=== PATIENT | male | born 1970 | race Caucasian/White ===

== ENCOUNTER 2023-05-21 06:55 | Outpatient (OUT) | payer MEDICARE, MEDICAID, SELFPAY ==
--- NOTE | 2023-05-21 06:59 | CT_ITS ---
[address] [address] Patient Name: GEORGE MCCARTNEY MRN: [id number] date: 1970 Sex: M Assigned Patient Location: CT Current Patient Location: CT Accession/Order Number: [id number] Exam Date: 05/21/2023 08:19 Report Date: 05/21/2023 09:09 At the request of: SHAIKH BREANNA Procedure: CT abdomen pelvis wo con EXAMINATION: CT abdomen pelvis wo con HISTORY: Incisional hernia-anterior abdmnl wall w/o obstruction K43.2 ; abdominal pain COMPARISON: CT abdomen pelvis 06/18/2022 TECHNIQUE: Axial, Coronal, and Sagittal images were obtained without and/or with IV contrast as indicated by examination type. Dose reduction techniques were achieved by using automated exposure control and/or adjustment of mA and/or kV according to patient size and/or use of iterative reconstruction technique. FINDINGS: LUNG BASES: No visible pulmonary or pleural disease. LIVER: Decreased attenuation of the liver suggestive of fatty infiltration. History of liver transplant. No enlargement, atrophy, suspicious density, or significant focal lesion. Enlarged collateral vessels within left upper quadrant posteriorly suggestive of portal hypertension; stable. BILIARY: Absent gallbladder. No abnormal duct dilation. PANCREAS: No lesion, fluid collection, or abnormal duct dilatation. SPLEEN: No enlargement or focal lesion. ADRENALS: No mass or enlargement. KIDNEYS: Marked atrophy of [place] kidneys. Right pelvis renal transplant containing a single small nonobstructing stone. BOWEL/MESENTERY: No visible mass, obstruction, or bowel wall thickening. Normal appendix. AORTA/VASCULAR: Moderate atherosclerotic disease. No aneurysm. RETROPERITONEUM: No mass or adenopathy. LYMPH NODES: No adenopathy. URINARY BLADDER: No visible focal wall thickening, lesion, or calculus. PELVIC ORGANS: No visible mass. Pelvic organs appropriate for patient age. ABDOMINAL WALL: Tiny fat filled umbilical hernia without strangulation. BONES: No bony lesion or fracture. OTHER: Negative. IMPRESSION: 1. No acute or suspicious findings to account for patient's symptoms. 2.Stable findings associated with prior liver transplant and right pelvic kidney transplant. Electronically authenticated by: MÓNICA JIMENEZ Date: 05/21/2023 09:09
== END 2023-05-21 06:56 | disposition home or self-care (01) ==
LOC: CT 06:55
PROVIDERS: PCP Nurse Practitioner; Visit Provider Internal Medicine
DX: K43.2 Incisional hernia without obstruction or gangrene (principal)
CPT/HCPCS: 74176

== ENCOUNTER 2023-07-03 06:55 | Outpatient (OUT) | payer MEDICARE, MEDICAID, SELFPAY ==
[2023-07-03 07:28] LABS: Basophils Absolute Auto 0.1 10^3/uL (0.0-0.1); Basophils Percent Auto 0.9 % (0.2-2.0); Eosinophils Absolute Auto 0.2 10^3/uL (0.0-0.7); Eosinophils Percent Auto 2.6 % (0.9-7.0); Hematocrit 49.9 % (42.0-54.0); Hemoglobin 16.4 g/dL (14.0-18.0); Immature Granulocytes Abs Auto 0.01 10^3/uL (0.00-0.03); Immature Granulocytes Pct Auto 0.2 % (0.0-0.5); Lymphocytes Absolute Auto 1.7 10^3/uL (1.2-3.8); Lymphocytes Percent Auto 28.6 % (20.5-60.0); Mean Corpuscular HGB Conc 32.9 g/dL (29.9-35.2); Mean Corpuscular Hemoglobin 28.5 pg (25.9-34.0); Mean Corpuscular Volume 86.6 fL (80.0-94.0); Mean Platelet Volume 9.4 fL (9.5-13.5); Monocytes Absolute Auto 0.6 10^3/uL (0.3-0.8); Monocytes Percent Auto 10.1 % (1.7-12.0); Neutrophils Absolute Auto 3.3 10^3/uL (1.4-6.5); Neutrophils Percent Auto 57.6 % (43.0-75.0); Platelet Count 252 10^3/uL (150-450); Red Blood Count 5.76 10^6/uL (4.70-6.10); Red Cell Distribution Width 12.7 % (11.0-15.0); White Blood Count 5.8 10^3/uL (4.0-11.0)
[2023-07-03 08:32] LABS: Protein Creatinine Ratio Urine 0.12; Total Protein Urine Random 12.4 mg/dL (<=11.9)
[2023-07-03 08:46] LABS: Alanine Aminotransferase 38 U/L (16-63); Albumin Level 4.2 g/dL (3.4-5.0); Alkaline Phosphatase 110 U/L (46-116); Anion Gap 10.8; Aspartate Amino Transferase 16 U/L (15-37); BUN Creatinine Ratio 10.6; Bilirubin Direct 0.2 mg/dL (0.0-0.2); Bilirubin Total 0.8 mg/dL (0.2-1.0); Calcium 9.3 mg/dL (8.5-10.1); Chloride 106 mmol/L (98-107); Estimated GFR (African America >60 (>=60); Estimated GFR (Non-African Ame >60 (>=60); Gamma Glutamyl Transpeptidase 26 U/L (15-85); Glucose 128 mg/dL (74-106); Magnesium 1.7 mg/dL (1.8-2.4); Phosphorus 3.1 mg/dL (2.6-4.7); Potassium 3.8 mmol/L (3.5-5.1); Sodium 138 mmol/L (136-145)
== END 2023-07-03 06:56 | disposition home or self-care (01) ==
PROVIDERS: PCP Nurse Practitioner
DX: R79.9 Abnormal finding of blood chemistry, unspecified (principal); Z94.4 Liver transplant status; D84.9 Immunodeficiency, unspecified; Z48.298 Encounter for aftercare following other organ transplant; Z94.0 Kidney transplant status
CPT/HCPCS: 36415; 80048; 80197; 82042; 82247; 82248; 82570; 82977; 83735; 84075; 84100; 84156; 84450; 84460; 85025; 87799

== ENCOUNTER 2023-07-08 11:42 | Outpatient (OUT) | payer MEDICARE, MEDICAID, SELFPAY ==
[2023-07-10 13:09] LABS: BKV DNA, Quant PCR, Plasma Negative (Negative)
== END 2023-07-08 11:43 | disposition home or self-care (01) ==
LOC: LAB 11:42
PROVIDERS: PCP Nurse Practitioner
DX: R79.9 Abnormal finding of blood chemistry, unspecified (principal); Z94.4 Liver transplant status; Z94.0 Kidney transplant status; D84.9 Immunodeficiency, unspecified; Z48.298 Encounter for aftercare following other organ transplant
CPT/HCPCS: 36415; 87799

== ENCOUNTER 2023-08-05 13:55 | Outpatient (OUT) | payer MEDICARE, MEDICAID, SELFPAY ==
--- NOTE | 2023-08-05 | XR_ITS ---
The [address] [address] Patient Name: GEORGE MCCARTNEY MRN: [id number] date: 1970 Sex: M Assigned Patient Location: LAB Current Patient Location: LAB Accession/Order Number: [id number] Exam Date: 08/05/2023 14:20 Report Date: 08/05/2023 14:42 At the request of: ZULY HERNANDEZ Procedure: XR chest 2V EXAMINATION: XR chest 2V HISTORY: Cough R05.9, Fever and chills R50.9 COMPARISON: No relevant comparison available. TECHNIQUE: PA and lateral FINDINGS: LUNGS: No significant pulmonary parenchymal abnormalities. VASCULATURE: No increased pulmonary vasculature. PLEURA: No pneumothorax, effusion, or pleural thickening. CARDIAC: Stable cardiomegaly MEDIASTINUM: No visible mass or adenopathy. BONES: No fracture or visible bone lesion. OTHER: Negative. XR/XR chest 2V IMPRESSION: Cardiomegaly Clear lungs Electronically authenticated by: GIAN RODRIGUEZ Date: 08/05/2023 14:42
[2023-08-05 14:17] LABS: Basophils Absolute Auto 0.1 10^3/uL (0.0-0.1); Basophils Percent Auto 1.1 % (0.2-2.0); Eosinophils Absolute Auto 0.1 10^3/uL (0.0-0.7); Eosinophils Percent Auto 1.7 % (0.9-7.0); Hematocrit 46.4 % (42.0-54.0); Hemoglobin 15.1 g/dL (14.0-18.0); Immature Granulocytes Abs Auto 0.02 10^3/uL (0.00-0.03); Immature Granulocytes Pct Auto 0.3 % (0.0-0.5); Lymphocytes Absolute Auto 2.2 10^3/uL (1.2-3.8); Mean Corpuscular HGB Conc 32.5 g/dL (29.9-35.2); Mean Corpuscular Hemoglobin 28.4 pg (25.9-34.0); Mean Corpuscular Volume 87.2 fL (80.0-94.0); Mean Platelet Volume 9.1 fL (9.5-13.5); Monocytes Absolute Auto 0.8 10^3/uL (0.3-0.8); Monocytes Percent Auto 11.9 % (1.7-12.0); Neutrophils Absolute Auto 3.2 10^3/uL (1.4-6.5); Platelet Count 349 10^3/uL (150-450); Red Blood Count 5.32 10^6/uL (4.70-6.10); Red Cell Distribution Width 12.7 % (11.0-15.0); White Blood Count 6.3 10^3/uL (4.0-11.0)
[2023-08-05 14:18] LABS: Bilirubin Urine NEGATIVE (NEGATIVE); Blood Urine NEGATIVE (NEGATIVE); Clarity Urine CLEAR (CLEAR); Color Urine YELLOW (YELLOW); Glucose Urine UA NEGATIVE (NEGATIVE); Ketones Urine NEGATIVE (NEGATIVE); Leukocyte Esterase Urine NEGATIVE (NEGATIVE); Nitrite Urine NEGATIVE (NEGATIVE); Protein Urine TRACE mg/dL (NEG/TRACE)
[2023-08-05 14:24] LABS: Bacteria Urine NONE SEEN #/HPF (NONE SEEN); Mucus Urine TRACE (NONE SEEN); RBC Urine NONE SEEN #/HPF (0-2); WBC Urine NONE SEEN #/HPF (NONE SEEN)
[2023-08-05 14:25] LABS: Amorphous Sediment Urine RARE; Cast Seen? NONE SEEN #/LPF (NONE SEEN); Crystals Seen? None Seen #/HPF (None Seen); Squamous Epithelial Cell Urine RARE #/LPF (NONE/RARE); Urine Culture Indicated ALREADY ORDERED
[2023-08-05 14:46] LABS: Alanine Aminotransferase 54 U/L (16-63); Albumin Globulin Ratio 0.7; Albumin Level 3.5 g/dL (3.4-5.0); Alkaline Phosphatase 129 U/L (46-116); Anion Gap 12.6; Aspartate Amino Transferase 44 U/L (15-37); BUN Creatinine Ratio 11.9; Calcium 9.5 mg/dL (8.5-10.1); Chloride 105 mmol/L (98-107); Estimated GFR (African America >60 (>=60); Estimated GFR (Non-African Ame 56 (>=60); Globulin 5.1 g/dL; Glucose 125 mg/dL (74-106); Potassium 3.6 mmol/L (3.5-5.1); Sodium 141 mmol/L (136-145); Total Protein 8.6 g/dL (6.4-8.2)
== END 2023-08-05 13:56 | disposition home or self-care (01) ==
LOC: LAB 13:57
PROVIDERS: PCP Nurse Practitioner; Visit Provider Nurse Practitioner
DX: R50.9 Fever, unspecified (principal); R05.9 Cough, unspecified
CPT/HCPCS: 36415; 71046; 80053; 81001; 85025; 87086

== ENCOUNTER 2023-08-12 12:27 | Outpatient (OUT) | payer MEDICARE, MEDICAID, SELFPAY ==
[2023-08-12 14:31] LABS: Anion Gap 15.7; BUN Creatinine Ratio 10.9; Calcium 8.8 mg/dL (8.5-10.1); Carbon Dioxide 22.1 mmol/L (21.0-32.0); Chloride 103 mmol/L (98-107); Estimated GFR (African America >60 (>=60); Estimated GFR (Non-African Ame 54 (>=60); Glucose 150 mg/dL (74-106); Potassium 3.8 mmol/L (3.5-5.1); Sodium 137 mmol/L (136-145)
== END 2023-08-12 12:28 | disposition home or self-care (01) ==
LOC: LAB 12:29
PROVIDERS: PCP Nurse Practitioner; Visit Provider Nurse Practitioner
DX: R79.89 Other specified abnormal findings of blood chemistry (principal)
CPT/HCPCS: 36415; 80048

== ENCOUNTER 2023-08-17 07:18 | Outpatient (OUT) | payer MEDICARE, MEDICAID, SELFPAY ==
[2023-08-17 08:05] LABS: Hematocrit 44.1 % (42.0-54.0); Hemoglobin 14.2 g/dL (14.0-18.0); Mean Corpuscular HGB Conc 32.2 g/dL (29.9-35.2); Mean Corpuscular Hemoglobin 28.3 pg (25.9-34.0); Mean Platelet Volume 9.9 fL (9.5-13.5); Platelet Count 201 10^3/uL (150-450); Red Blood Count 5.01 10^6/uL (4.70-6.10); Red Cell Distribution Width 12.8 % (11.0-15.0); White Blood Count 4.7 10^3/uL (4.0-11.0)
[2023-08-17 08:25] LABS: Band Neutrophils Absolute 0.1 10^3/uL (0.0-0.3); Eosinophils Absolute Manual 0.04 10^3/uL (0.00-0.70); Lymphocytes Absolute Manual 2.11 10^3/uL (1.20-3.80); Segmented Neut Absolute Manual 1.69 10^3/uL (1.4-6.5)
[2023-08-17 09:40] LABS: Protein Creatinine Ratio Urine 0.18; Total Protein Urine Random 56.4 mg/dL (<=11.9)
[2023-08-17 10:16] LABS: Alanine Aminotransferase 61 U/L (16-63); Albumin Level 3.2 g/dL (3.4-5.0); Alkaline Phosphatase 119 U/L (46-116); Aspartate Amino Transferase 44 U/L (15-37); BUN Creatinine Ratio 9.5; Bilirubin Direct 0.3 mg/dL (0.0-0.2); Bilirubin Total 1.3 mg/dL (0.2-1.0); Calcium 9.2 mg/dL (8.5-10.1); Carbon Dioxide 27.6 mmol/L (21.0-32.0); Chloride 102 mmol/L (98-107); Estimated GFR (African America >60 (>=60); Estimated GFR (Non-African Ame 50 (>=60); Gamma Glutamyl Transpeptidase 107 U/L (15-85); Glucose 137 mg/dL (74-106); Potassium 3.6 mmol/L (3.5-5.1); Sodium 139 mmol/L (136-145)
[2023-08-19 11:09] LABS: Tacrolimus (FK506), Blood 4.1 ng/mL (2.0-20.0)
[2023-08-20 15:12] LABS: CMV Quant DNA PCR (Plasma) Negative (Negative)
[2023-08-22 15:08] LABS: BKV DNA, Quant PCR, Plasma Negative (Negative)
== END 2023-08-17 07:19 | disposition home or self-care (01) ==
LOC: LAB 07:20
PROVIDERS: PCP Nurse Practitioner
DX: R73.9 Hyperglycemia, unspecified (principal); R68.83 Chills (without fever); Z12.5 Encounter for screening for malignant neoplasm of prostate; Z94.0 Kidney transplant status; Z94.4 Liver transplant status; R79.9 Abnormal finding of blood chemistry, unspecified; D84.9 Immunodeficiency, unspecified; Z48.298 Encounter for aftercare following other organ transplant
CPT/HCPCS: 36415; 80048; 80197; 82042; 82247; 82248; 82570; 82977; 83036; 84075; 84156; 84450; 84460; 85027; 85652; 86140; 87497; 87799; G0103

== ENCOUNTER 2023-08-17 07:23 | Outpatient (OUT) | payer MEDICARE, MEDICAID, SELFPAY ==
[2023-08-17 07:54] LABS: Erythrocyte Sedimentation Rate 37 mm/hr (<=20)
[2023-08-17 08:52] LABS: C Reactive Protein 4.3 mg/dL (<=1.0)
[2023-08-17 09:11] LABS: Prostate Specific Antigen Scrn 1.54 ng/mL (<=4.00)
[2023-08-17 09:23] LABS: Estimated Average Glucose 128 mg/dL; Glycohemoglobin A1C 6.1 % (4.5-6.2)
== END 2023-08-17 07:24 | disposition home or self-care (01) ==
LOC: LAB 07:25
PROVIDERS: PCP Nurse Practitioner; Visit Provider Nurse Practitioner
DX: R68.83 Chills (without fever) (principal); R73.9 Hyperglycemia, unspecified
CPT/HCPCS: 36415; 83036; 85652; 86140; G0103

== ENCOUNTER 2023-08-20 15:56 | Emergency (ER) | payer MEDICARE, MEDICAID, SELFPAY ==
[2023-08-20 16:03] VITALS: BP 105/65; PULSE 91; RESP 16; TEMP 36.9; O2SAT 95; BMI 32.9
--- NOTE | 2023-08-20 16:13 | ED.FEVER1 ---
HPI - Fever General Chief Complaint: Fever Stated Complaint: FEVER, CHILLS AND SWEATS/COUGH DR SHI SENT Time Seen by Provider: 08/20/23 15:59 Source: patient Mode of arrival: walk-in Limitations: no limitations History of Present Illness HPI Narrative: 53-year-old male presents for fever and cough. He's had this for a month. He's had testing including a chest x-ray about three weeks ago and some blood test. He is a transplant patient, liver and kidney and this was done at [facility]. He's been in communication with his transplant surgeon. No vomiting or diarrhea or dysuria. He states his temperature was 102 degrees last night. Related Data Home Medications Medication Instructions Recorded Confirmed allopurinol 100 mg tablet 200 mg PO DAILY 08/20/23 08/20/23 amlodipine 5 mg tablet 5 mg PO DAILY 08/20/23 08/20/23 atorvastatin 20 mg tablet 20 mg PO DAILY 08/20/23 08/20/23 famotidine 20 mg tablet 20 mg PO Q12H 08/20/23 08/20/23 gabapentin 400 mg capsule 400 mg PO DAILY 08/20/23 08/20/23 losartan 50 mg tablet 50 mg PO BID 08/20/23 08/20/23 mycophenolate sodium 180 mg 360 mg PO Q12H 08/20/23 08/20/23 tablet,delayed release tacrolimus 0.5 mg capsule, 0.5 mg PO Q12H 08/20/23 08/20/23 immediate-release tamsulosin 0.4 mg capsule 0.4 mg PO Q24H 08/20/23 08/20/23 triamcinolone acetonide 0.1 % 1 applic topical BID 08/20/23 08/20/23 topical cream Previous Rx's Medication Instructions Recorded benzonatate 100 mg capsule 100 mg PO TID PRN cough #20 caps 08/20/23 Allergies Allergy/AdvReac Type Severity Reaction Status Date / Time No Known Drug Allergies Allergy Verified 08/20/23 16:08 Review of Systems ROS Narrative A ten point review of systems is negative except as noted above. PFSH PFSH Social History Smoking status: Former smoker Exam Narrative Exam Narrative: Nurses note and vital signs reviewed and patient is not hypoxic. General: The patient appears well and in no apparent distress. Patient is resting comfortably on cart. Skin: Warm, dry, no pallor noted. There is no rash noted. Head: Normocephalic, atraumatic Eye: Normal conjunctiva, no drainage Ears, Nose, Mouth, and Throat: oral mucosa is moist. Nares patent. Cardiovascular: Regular Rate and Rhythm Respiratory: Patient is in no distress, no accessory muscle use, lungs are clear to auscultation, no wheezing, rales or rhonchi Back: non-tender GI: no tenderness to palpation, no masses appreciated. No rebound, guarding, or rigidity noted. Musculoskeletal: The patient has no evidence of calf tenderness, no pitting edema, symmetrical pulses noted bilaterally Neurological: A&O, normal speech Psychiatric: Cooperative Constitutional Vital Signs, click to edit/add: Last Vital Signs Temp 98.4 F 08/20/23 17:12 Pulse 91 H 08/20/23 16:03 Resp 16 08/20/23 16:03 BP 105/65 08/20/23 16:03 Pulse Ox 95 08/20/23 16:03 O2 Del Method Room Air 08/20/23 16:03 Course Vital Signs Vital signs: Vital Signs Temperature 98.5 F 08/20/23 16:03 Pulse Rate 91 H 08/20/23 16:03 Respiratory Rate 16 08/20/23 16:03 Blood Pressure 105/65 08/20/23 16:03 Pulse Oximetry 95 08/20/23 16:03 Oxygen Delivery Method Room Air 08/20/23 16:03 Temperature 98.4 F 08/20/23 17:12 Pulse Rate 91 H 08/20/23 16:03 Respiratory Rate 16 08/20/23 16:03 Blood Pressure 105/65 08/20/23 16:03 Pulse Oximetry 95 08/20/23 16:03 Oxygen Delivery Method Room Air 08/20/23 16:03 MDM - Fever MDM Narrative Medical decision making narrative: the patient's workup is nonspecific. Covid test and chest x-ray are negative. He's had a slight decrease in his hemoglobin of the past six weeks and it slight increase in his creatinine over the past six weeks as well. Findings are discussed with the transplant team at [facility] and the patient will be talking to his hospice office coordinator tomorrow for further follow-up. Tonight the transplant team does not feel that the patient needs any acute intervention but will definitely need follow-up. Treatment diagnosis and follow-up were discussed with the patient. Differential Diagnosis Differential diagnosis: Likely fever of unknown origin, community acquired pneumonia and viral infection Lab Data Attestation: I reviewed the patient's lab results. Labs: Lab Results 08/20/23 Range/Units 16:20 WBC 5.4 (4.0-11.0) 10^3/uL RBC 4.64 L (4.70-6.10) 10^6/uL Hgb 13.1 L (14.0-18.0) g/dL Hct 41.1 L (42.0-54.0) % MCV 88.6 (80.0-94.0) fL MCH 28.2 (25.9-34.0) pg MCHC 31.9 (29.9-35.2) g/dL RDW 13.2 (11.0-15.0) % Plt Count 208 (150-450) 10^3/uL MPV 9.9 (9.5-13.5) fL Neut % (Auto) 49.1 (43.0-75.0) % Lymph % (Auto) 38.4 (20.5-60.0) % [place] % (Auto) 9.2 (1.7-12.0) % Eos % (Auto) 1.3 (0.9-7.0) % Baso % (Auto) 1.1 (0.2-2.0) % Neut # (Auto) 2.7 (1.4-6.5) 10^3/uL Lymph # (Auto) 2.1 (1.2-3.8) 10^3/uL [place] # (Auto) 0.5 (0.3-0.8) 10^3/uL Eos # (Auto) 0.1 (0.0-0.7) 10^3/uL Baso # (Auto) 0.1 (0.0-0.1) 10^3/uL Abs Immat Gran (auto) 0.05 H (0.00-0.03) 10^3/uL Imm/Tot Granulo (auto) 0.9 H (0.0-0.5) % Sodium 135 L (136-145) mmol/L Potassium 3.8 (3.5-5.1) mmol/L Chloride 102 (98-107) mmol/L Carbon Dioxide 23.1 (21.0-32.0) mmol/L Anion Gap 13.7 BUN 15.0 (7.0-18.0) mg/dL Creatinine 1.51 H (0.70-1.30) mg/dL Est GFR ( Amer) 59 L (>=60) Est GFR (Non-Af Amer) 49 L (>=60) BUN/Creatinine Ratio 9.9 Glucose 125 H (74-106) mg/dL Calcium 9.4 (8.5-10.1) mg/dL Total Bilirubin 1.3 H (0.2-1.0) mg/dL Direct Bilirubin 0.4 H (0.0-0.2) mg/dL AST 56 H (15-37) U/L ALT 58 (16-63) U/L Alkaline Phosphatase 129 H (46-116) U/L Total Protein 7.4 (6.4-8.2) g/dL Albumin 3.0 L (3.4-5.0) g/dL Globulin 4.4 g/dL Albumin/Globulin Ratio 0.7 Urine Color Dk. yellow (YELLOW) Urine Clarity Clear (CLEAR) Urine pH 6.5 (5.0-9.0) Ur Specific [place] 1.020 (1.005-1.025) Urine Protein 100 A (NEG/TRACE) mg/dL Urine Glucose (UA) Negative (NEGATIVE) mg/dL Urine Ketones Trace A (NEGATIVE) mg/dL Urine Occult Blood Negative (NEGATIVE) Urine Nitrite Positive A (NEGATIVE) Urine Bilirubin Moderate A (NEGATIVE) Urine Urobilinogen 2.0 A (0.2-1.0) EU/dL Ur Leukocyte Esterase Negative (NEGATIVE) Urine RBC 0-2 (0-2) #/HPF Urine WBC 2-5 A (NONE SEEN) #/HPF Ur Squamous Epith Cells Rare (NONE/RARE) #/LPF Urine Crystals Seen A (None Seen) #/HPF Amorphous Sediment Few Urine Bacteria Trace A (NONE SEEN) #/HPF Urine Casts Seen A (NONE SEEN) #/LPF Hyaline Casts Few Urine Mucus Moderate A (NONE SEEN) SARS-CoV-2 (PCR) Negative (NEGATIVE) Imaging Data Chest x-ray: Radiologist's impression: Procedure: XR chest 1V EXAM: Chest x-ray HISTORY: . fever cough . COMPARISON: None. TECHNIQUE: Single view of the chest FINDINGS: Heart is upper limits of normal in size with left ventricular contour. Vascularity is unremarkable. Lungs are free of focal infiltrates. Grossly no bony abnormality is appreciated. IMPRESSION: 1. Borderline cardiac enlargement. 2. No infiltrates. Discharge Plan Discharge Chief Complaint: Fever Clinical Impression: Fever Patient Disposition: Home, Self-Care Time of Disposition Decision: 18:32 Condition: Good Mode of Transportation: Private Vehicle Prescriptions / Home Meds: New benzonatate 100 mg capsule 100 mg PO TID PRN (Reason: cough) Qty: 20 0RF No Action allopurinol 100 mg tablet 200 mg PO DAILY amlodipine 5 mg tablet 5 mg PO DAILY atorvastatin 20 mg tablet 20 mg PO DAILY famotidine 20 mg tablet 20 mg PO Q12H gabapentin 400 mg capsule 400 mg PO DAILY losartan 50 mg tablet 50 mg PO BID mycophenolate sodium 180 mg tablet,delayed release (DR/EC) 360 mg PO Q12H tacrolimus 0.5 mg capsule 0.5 mg PO Q12H tamsulosin 0.4 mg capsule 0.4 mg PO Q24H triamcinolone acetonide 0.1 % cream 1 applic TOPICAL BID Rx Instructions: To feet Instructions: Fever in Adults (ED) Additional Instructions: communicate with your hospice office coordinator tomorrow Stand Alone Forms: Portal Instructions Referrals: Mihaela Bruno [Primary Care Provider] - 1 week
[2023-08-20 16:44] LABS: Basophils Absolute Auto 0.1 10^3/uL (0.0-0.1); Basophils Percent Auto 1.1 % (0.2-2.0); Bilirubin Urine MODERATE (NEGATIVE); Blood Urine NEGATIVE (NEGATIVE); Clarity Urine CLEAR (CLEAR); Color Urine DK. YELLOW (YELLOW); Eosinophils Absolute Auto 0.1 10^3/uL (0.0-0.7); Eosinophils Percent Auto 1.3 % (0.9-7.0); Glucose Urine UA NEGATIVE (NEGATIVE); Hematocrit 41.1 % (42.0-54.0); Hemoglobin 13.1 g/dL (14.0-18.0); Immature Granulocytes Abs Auto 0.05 10^3/uL (0.00-0.03); Immature Granulocytes Pct Auto 0.9 % (0.0-0.5); Ketones Urine TRACE mg/dL (NEGATIVE); Leukocyte Esterase Urine NEGATIVE (NEGATIVE); Lymphocytes Absolute Auto 2.1 10^3/uL (1.2-3.8); Lymphocytes Percent Auto 38.4 % (20.5-60.0); Mean Corpuscular HGB Conc 31.9 g/dL (29.9-35.2); Mean Corpuscular Hemoglobin 28.2 pg (25.9-34.0); Mean Corpuscular Volume 88.6 fL (80.0-94.0); Mean Platelet Volume 9.9 fL (9.5-13.5); Monocytes Absolute Auto 0.5 10^3/uL (0.3-0.8); Monocytes Percent Auto 9.2 % (1.7-12.0); Neutrophils Absolute Auto 2.7 10^3/uL (1.4-6.5); Neutrophils Percent Auto 49.1 % (43.0-75.0); Nitrite Urine POSITIVE (NEGATIVE); Platelet Count 208 10^3/uL (150-450); Protein Urine 100 mg/dL (NEG/TRACE); Red Blood Count 4.64 10^6/uL (4.70-6.10); Red Cell Distribution Width 13.2 % (11.0-15.0); White Blood Count 5.4 10^3/uL (4.0-11.0); pH Urine 6.5 (5.0-9.0)
[2023-08-20 16:47] LABS: SARS-CoV-2 Ag NEGATIVE (NEGATIVE)
[2023-08-20 16:52] LABS: Anion Gap 13.7; BUN Creatinine Ratio 9.9; Calcium 9.4 mg/dL (8.5-10.1); Carbon Dioxide 23.1 mmol/L (21.0-32.0); Chloride 102 mmol/L (98-107); Estimated GFR (African America 59 (>=60); Estimated GFR (Non-African Ame 49 (>=60); Glucose 125 mg/dL (74-106); Potassium 3.8 mmol/L (3.5-5.1); Sodium 135 mmol/L (136-145)
[2023-08-20 16:58] LABS: Alanine Aminotransferase 58 U/L (16-63); Albumin Globulin Ratio 0.7; Alkaline Phosphatase 129 U/L (46-116); Aspartate Amino Transferase 56 U/L (15-37); Bilirubin Direct 0.4 mg/dL (0.0-0.2); Bilirubin Total 1.3 mg/dL (0.2-1.0); Globulin 4.4 g/dL; Total Protein 7.4 g/dL (6.4-8.2)
[2023-08-20 17:05] LABS: Amorphous Sediment Urine FEW; Bacteria Urine TRACE #/HPF (NONE SEEN); Cast Seen? SEEN #/LPF (NONE SEEN); Crystals Seen? Seen #/HPF (None Seen); Hyaline Casts Urine FEW; Mucus Urine MODERATE (NONE SEEN); RBC Urine 0-2 #/HPF (0-2); Squamous Epithelial Cell Urine RARE #/LPF (NONE/RARE)
[2023-08-20 17:12] VITALS: TEMP 36.9
--- NOTE | 2023-08-20 17:15 | XR_ITS ---
The [address] [address] Patient Name: GEORGE MCCARTNEY MRN: [id number] date: 1970 Sex: M Assigned Patient Location: ER Current Patient Location: ER Accession/Order Number: [id number] Exam Date: 08/20/2023 17:10 Report Date: 08/20/2023 17:58 At the request of: VIK JACOBS Procedure: XR chest 1V EXAM: Chest x-ray HISTORY: . fever cough . COMPARISON: None. TECHNIQUE: Single view of the chest FINDINGS: Heart is upper limits of normal in size with left ventricular contour. Vascularity is unremarkable. Lungs are free of focal infiltrates. Grossly no bony abnormality is appreciated. XR/XR chest 1V IMPRESSION: 1. Borderline cardiac enlargement. 2. No infiltrates. Electronically authenticated by: GIAN ARZATE Date: 08/20/2023 17:58
[2023-08-21 15:26] LABS: SARS-CoV-2 NAA NOT DETECTED (NOT DETECTE)
== END 2023-08-20 18:45 | disposition home or self-care (01) ==
PROVIDERS: Emergency Provider Emergency Medicine; PCP Nurse Practitioner
DX: R50.9 Fever, unspecified (principal); Z79.899 Other long term (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; Z87.891 Personal history of nicotine dependence; Z20.822 Contact with and (suspected) exposure to COVID-19
CPT/HCPCS: 36415; 71045; 80048; 80076; 81001; 85025; 87635; 87811; 99284; U0003

== ENCOUNTER 2023-09-14 07:09 | Outpatient (OUT) | payer MEDICARE, MEDICAID, SELFPAY ==
[2023-09-16 13:08] LABS: Tacrolimus (FK506), Blood 7.3 ng/mL (2.0-20.0)
== END 2023-09-14 07:10 | disposition home or self-care (01) ==
LOC: LAB 07:11
PROVIDERS: PCP Nurse Practitioner
DX: Z79.899 Other long term (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 (principal)
CPT/HCPCS: 36415; 80048; 80197

== ENCOUNTER 2023-09-14 07:25 | Outpatient (OUT) | payer MEDICARE, MEDICAID, SELFPAY ==
[2023-09-14 07:57] LABS: Basophils Absolute Auto 0.1 10^3/uL (0.0-0.1); Basophils Percent Auto 1.5 % (0.2-2.0); Eosinophils Absolute Auto 0.3 10^3/uL (0.0-0.7); Eosinophils Percent Auto 6.4 % (0.9-7.0); Hematocrit 41.6 % (42.0-54.0); Hemoglobin 13.5 g/dL (14.0-18.0); Immature Granulocytes Abs Auto 0.02 10^3/uL (0.00-0.03); Immature Granulocytes Pct Auto 0.4 % (0.0-0.5); Lymphocytes Absolute Auto 1.7 10^3/uL (1.2-3.8); Lymphocytes Percent Auto 32.2 % (20.5-60.0); Mean Corpuscular HGB Conc 32.5 g/dL (29.9-35.2); Mean Corpuscular Hemoglobin 28.4 pg (25.9-34.0); Mean Corpuscular Volume 87.4 fL (80.0-94.0); Mean Platelet Volume 9.1 fL (9.5-13.5); Monocytes Absolute Auto 0.9 10^3/uL (0.3-0.8); Monocytes Percent Auto 17.1 % (1.7-12.0); Neutrophils Absolute Auto 2.2 10^3/uL (1.4-6.5); Neutrophils Percent Auto 42.4 % (43.0-75.0); Platelet Count 273 10^3/uL (150-450); Red Blood Count 4.76 10^6/uL (4.70-6.10); Red Cell Distribution Width 14.1 % (11.0-15.0); White Blood Count 5.2 10^3/uL (4.0-11.0)
[2023-09-14 08:48] LABS: Alanine Aminotransferase 40 U/L (16-63); Albumin Level 3.5 g/dL (3.4-5.0); Alkaline Phosphatase 157 U/L (46-116); Anion Gap 13.9; Aspartate Amino Transferase 30 U/L (15-37); Bilirubin Direct 0.2 mg/dL (0.0-0.2); Bilirubin Total 1.1 mg/dL (0.2-1.0); Carbon Dioxide 24.6 mmol/L (21.0-32.0); Chloride 104 mmol/L (98-107); Estimated GFR (African America >60 (>=60); Estimated GFR (Non-African Ame 55 (>=60); Gamma Glutamyl Transpeptidase 68 U/L (15-85); Glucose 128 mg/dL (74-106); Potassium 4.5 mmol/L (3.5-5.1); Sodium 138 mmol/L (136-145)
[2023-09-14 08:51] LABS: Creatinine Urine Random 107.64 mg/dL (20.00-300.00); Protein Creatinine Ratio Urine 0.35; Total Protein Urine Random 37.4 mg/dL (<=11.9)
[2023-09-16 16:11] LABS: CMV Quant DNA PCR (Plasma) Negative (Negative)
[2023-09-18 08:12] LABS: BKV DNA, Quant PCR, Plasma Negative (Negative)
== END 2023-09-14 07:26 | disposition home or self-care (01) ==
LOC: LAB 07:26
PROVIDERS: PCP Nurse Practitioner
DX: Z94.0 Kidney transplant status (principal); Z94.4 Liver transplant status; R79.9 Abnormal finding of blood chemistry, unspecified; Z48.298 Encounter for aftercare following other organ transplant; Z79.899 Other long term (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
CPT/HCPCS: 36415; 80051; 80189; 80197; 82042; 82247; 82248; 82565; 82570; 82947; 82977; 84075; 84156; 84450; 84460; 84520; 85025; 87497; 87799

== ENCOUNTER 2023-09-17 06:50 | Outpatient (OUT) | payer MEDICARE, MEDICAID, SELFPAY ==
[2023-09-17 07:45] LABS: Basophils Absolute Auto 0.1 10^3/uL (0.0-0.1); Basophils Percent Auto 2.1 % (0.2-2.0); Eosinophils Absolute Auto 0.3 10^3/uL (0.0-0.7); Eosinophils Percent Auto 5.3 % (0.9-7.0); Hematocrit 41.5 % (42.0-54.0); Hemoglobin 13.2 g/dL (14.0-18.0); Immature Granulocytes Abs Auto 0.01 10^3/uL (0.00-0.03); Immature Granulocytes Pct Auto 0.2 % (0.0-0.5); Lymphocytes Absolute Auto 1.9 10^3/uL (1.2-3.8); Lymphocytes Percent Auto 39.5 % (20.5-60.0); Mean Corpuscular HGB Conc 31.8 g/dL (29.9-35.2); Mean Corpuscular Hemoglobin 27.7 pg (25.9-34.0); Mean Platelet Volume 9.3 fL (9.5-13.5); Monocytes Absolute Auto 0.9 10^3/uL (0.3-0.8); Neutrophils Absolute Auto 1.7 10^3/uL (1.4-6.5); Neutrophils Percent Auto 34.9 % (43.0-75.0); Platelet Count 248 10^3/uL (150-450); Red Blood Count 4.77 10^6/uL (4.70-6.10); Red Cell Distribution Width 13.8 % (11.0-15.0); White Blood Count 4.7 10^3/uL (4.0-11.0)
[2023-09-17 08:01] LABS: Creatinine Urine Random 90.75 mg/dL (20.00-300.00); Protein Creatinine Ratio Urine 0.17; Total Protein Urine Random 15.2 mg/dL (<=11.9)
[2023-09-17 08:44] LABS: Alanine Aminotransferase 36 U/L (16-63); Albumin Level 3.6 g/dL (3.4-5.0); Alkaline Phosphatase 137 U/L (46-116); Anion Gap 12.7; Aspartate Amino Transferase 30 U/L (15-37); BUN Creatinine Ratio 15.3; Bilirubin Direct 0.2 mg/dL (0.0-0.2); Bilirubin Total 1.1 mg/dL (0.2-1.0); Calcium 9.3 mg/dL (8.5-10.1); Carbon Dioxide 24.8 mmol/L (21.0-32.0); Chloride 104 mmol/L (98-107); Estimated GFR (African America >60 (>=60); Estimated GFR (Non-African Ame 52 (>=60); Gamma Glutamyl Transpeptidase 57 U/L (15-85); Glucose 118 mg/dL (74-106); Magnesium 1.8 mg/dL (1.8-2.4); Phosphorus 3.5 mg/dL (2.6-4.7); Potassium 4.5 mmol/L (3.5-5.1); Sodium 137 mmol/L (136-145)
[2023-09-19 15:07] LABS: BKV DNA, Quant PCR, Plasma Negative (Negative)
[2023-09-21 14:08] LABS: Tacrolimus (FK506), Blood 6.2 ng/mL (2.0-20.0)
== END 2023-09-17 06:51 | disposition home or self-care (01) ==
PROVIDERS: PCP Nurse Practitioner
DX: R79.9 Abnormal finding of blood chemistry, unspecified (principal); Z94.4 Liver transplant status; Z94.0 Kidney transplant status; D84.9 Immunodeficiency, unspecified; Z48.298 Encounter for aftercare following other organ transplant
CPT/HCPCS: 36415; 80048; 80189; 80197; 82042; 82247; 82248; 82570; 82977; 83735; 84075; 84100; 84156; 84450; 84460; 85025; 87799

== ENCOUNTER 2023-09-17 06:55 | Outpatient (OUT) | payer MEDICARE, MEDICAID, SELFPAY | END 2023-09-17 06:56 | disposition home or self-care (01) | LOC: LAB 06:56 | PROVIDERS: PCP Nurse Practitioner | DX: Z94.0 Kidney transplant status (principal); Z94.4 Liver transplant status; R79.9 Abnormal finding of blood chemistry, unspecified; D84.9 Immunodeficiency, unspecified; Z48.298 Encounter for aftercare following other organ transplant | CPT/HCPCS: 36415; 80189 ==

== ENCOUNTER 2023-09-21 06:47 | Outpatient (OUT) | payer MEDICARE, MEDICAID, SELFPAY ==
[2023-09-21 07:51] LABS: Anion Gap 11.5; Carbon Dioxide 25.9 mmol/L (21.0-32.0); Chloride 107 mmol/L (98-107); Estimated GFR (African America >60 (>=60); Estimated GFR (Non-African Ame 57 (>=60); Potassium 4.4 mmol/L (3.5-5.1); Sodium 140 mmol/L (136-145)
[2023-09-24 06:08] LABS: Tacrolimus (FK506), Blood 6.1 ng/mL (2.0-20.0)
== END 2023-09-21 06:48 | disposition home or self-care (01) ==
LOC: LAB 06:48
PROVIDERS: PCP Nurse Practitioner
DX: Z94.0 Kidney transplant status (principal); Z94.4 Liver transplant status; R79.9 Abnormal finding of blood chemistry, unspecified; Z48.298 Encounter for aftercare following other organ transplant; D84.9 Immunodeficiency, unspecified
CPT/HCPCS: 36415; 80051; 80189; 80197; 82565; 84520

== ENCOUNTER 2023-09-24 06:35 | Outpatient (OUT) | payer MEDICARE, MEDICAID, SELFPAY ==
[2023-09-27 14:07] LABS: Tacrolimus (FK506), Blood 4.9 ng/mL (2.0-20.0)
== END 2023-09-24 06:36 | disposition home or self-care (01) ==
LOC: LAB 06:36
PROVIDERS: PCP Nurse Practitioner
DX: Z79.899 Other long term (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 (principal)
CPT/HCPCS: 36415; 80051; 80197; 82565; 84520

== ENCOUNTER 2023-10-01 07:09 | Outpatient (OUT) | payer MEDICARE, MEDICAID, SELFPAY ==
[2023-10-01 08:08] LABS: Anion Gap 11.7; Carbon Dioxide 24.4 mmol/L (21.0-32.0); Chloride 107 mmol/L (98-107); Estimated GFR (African America >60 (>=60); Estimated GFR (Non-African Ame 50 (>=60); Potassium 4.1 mmol/L (3.5-5.1); Sodium 139 mmol/L (136-145)
[2023-10-04 04:06] LABS: Tacrolimus (FK506), Blood 6.1 ng/mL (2.0-20.0)
== END 2023-10-01 07:10 | disposition home or self-care (01) ==
LOC: LAB 07:11
PROVIDERS: PCP Nurse Practitioner
DX: Z79.899 Other long term (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 (principal)
CPT/HCPCS: 36415; 80051; 80197; 82565; 84520

== ENCOUNTER 2023-10-08 06:41 | Outpatient (OUT) | payer MEDICARE, MEDICAID, SELFPAY ==
[2023-10-08 09:11] LABS: Anion Gap 9.6; Carbon Dioxide 24.6 mmol/L (21.0-32.0); Chloride 106 mmol/L (98-107); Estimated GFR (African America >60 (>=60); Estimated GFR (Non-African Ame 58 (>=60); Potassium 4.2 mmol/L (3.5-5.1); Sodium 136 mmol/L (136-145)
[2023-10-12 14:08] LABS: Tacrolimus (FK506), Blood 5.8 ng/mL (2.0-20.0)
== END 2023-10-08 06:42 | disposition home or self-care (01) ==
LOC: LAB 06:43
PROVIDERS: PCP Nurse Practitioner
DX: R79.9 Abnormal finding of blood chemistry, unspecified (principal); Z94.4 Liver transplant status; Z94.0 Kidney transplant status; D84.9 Immunodeficiency, unspecified
CPT/HCPCS: 36415; 80051; 80197; 82565; 84520

== ENCOUNTER 2023-10-15 06:35 | Outpatient (OUT) | payer MEDICARE, MEDICAID, SELFPAY ==
[2023-10-15 07:31] LABS: Carbon Dioxide 26.1 mmol/L (21.0-32.0); Chloride 106 mmol/L (98-107); Estimated GFR (African America >60 (>=60); Estimated GFR (Non-African Ame >60 (>=60); Potassium 4.1 mmol/L (3.5-5.1); Sodium 142 mmol/L (136-145)
== END 2023-10-15 06:36 | disposition home or self-care (01) ==
LOC: LAB 06:37
PROVIDERS: PCP Nurse Practitioner
DX: R79.9 Abnormal finding of blood chemistry, unspecified (principal); Z94.4 Liver transplant status; Z94.0 Kidney transplant status; D84.9 Immunodeficiency, unspecified
CPT/HCPCS: 36415; 80051; 82565; 84520

== ENCOUNTER 2023-10-19 20:54 | Outpatient (OUT) | payer MEDICARE, MEDICAID, SELFPAY | END 2023-10-19 20:55 | disposition home or self-care (01) | LOC: SLEEP 20:54 | PROVIDERS: PCP Nurse Practitioner; Visit Provider Nurse Practitioner | DX: G47.33 Obstructive sleep apnea (adult) (pediatric) (principal) | CPT/HCPCS: 95810 ==

== ENCOUNTER 2023-10-23 06:46 | Outpatient (OUT) | payer MEDICARE, MEDICAID, SELFPAY ==
[2023-10-23 07:07] LABS: Anion Gap 14.8; Carbon Dioxide 26.4 mmol/L (21.0-32.0); Chloride 107 mmol/L (98-107); Estimated GFR (African America >60 (>=60); Estimated GFR (Non-African Ame >60 (>=60); Potassium 4.2 mmol/L (3.5-5.1); Sodium 144 mmol/L (136-145)
[2023-10-25 21:08] LABS: Tacrolimus (FK506), Blood 7.4 ng/mL (2.0-20.0)
== END 2023-10-23 06:47 | disposition home or self-care (01) ==
LOC: LAB 06:46
PROVIDERS: PCP Nurse Practitioner
DX: R79.9 Abnormal finding of blood chemistry, unspecified (principal); Z94.0 Kidney transplant status; Z94.4 Liver transplant status; D84.9 Immunodeficiency, unspecified; Z48.298 Encounter for aftercare following other organ transplant
CPT/HCPCS: 36415; 80051; 80197; 82565; 84520

== ENCOUNTER 2023-10-30 07:01 | Outpatient (OUT) | payer MEDICARE, MEDICAID, SELFPAY ==
[2023-10-30 07:58] LABS: Anion Gap 12.4; Carbon Dioxide 24.9 mmol/L (21.0-32.0); Chloride 104 mmol/L (98-107); Estimated GFR (African America >60 (>=60); Estimated GFR (Non-African Ame 60 (>=60); Potassium 4.3 mmol/L (3.5-5.1); Sodium 137 mmol/L (136-145)
== END 2023-10-30 07:02 | disposition home or self-care (01) ==
LOC: LAB 07:03
PROVIDERS: PCP Nurse Practitioner
DX: Z79.899 Other long term (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 (principal)
CPT/HCPCS: 36415; 80051; 82565; 84520

== ENCOUNTER 2023-10-30 07:07 | Outpatient (OUT) | payer MEDICARE, MEDICAID, SELFPAY | END 2023-10-30 07:08 | disposition home or self-care (01) | LOC: LAB 07:09 | PROVIDERS: PCP Nurse Practitioner | DX: Z79.899 Other long term (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 (principal); Z94.0 Kidney transplant status; R79.9 Abnormal finding of blood chemistry, unspecified; Z48.298 Encounter for aftercare following other organ transplant; D84.9 Immunodeficiency, unspecified | CPT/HCPCS: 36415; 80051; 82565; 84520; 87799 ==

== ENCOUNTER 2023-11-06 06:39 | Outpatient (OUT) | payer MEDICARE, MEDICAID, SELFPAY ==
[2023-11-06 08:02] LABS: Anion Gap 15.6; Carbon Dioxide 24.5 mmol/L (21.0-32.0); Chloride 106 mmol/L (98-107); Estimated GFR (African America >60 (>=60); Estimated GFR (Non-African Ame >60 (>=60); Potassium 4.1 mmol/L (3.5-5.1); Sodium 142 mmol/L (136-145)
[2023-11-09 11:12] LABS: Tacrolimus (FK506), Blood 7.6 ng/mL (2.0-20.0)
== END 2023-11-06 06:40 | disposition home or self-care (01) ==
LOC: LAB 06:40
PROVIDERS: PCP Nurse Practitioner
DX: R79.9 Abnormal finding of blood chemistry, unspecified (principal); Z94.0 Kidney transplant status; Z48.298 Encounter for aftercare following other organ transplant; D84.9 Immunodeficiency, unspecified
CPT/HCPCS: 36415; 80051; 80197; 82565; 84520

== ENCOUNTER 2023-11-10 12:33 | Outpatient (OUT) | payer MEDICARE, MEDICAID, SELFPAY ==
--- NOTE | 2023-11-10 | MR_ITS ---
The [address] [address] Patient Name: GEORGE MCCARTNEY MRN: [id number] date: 1970 Sex: M Assigned Patient Location: MRI Current Patient Location: MRI Accession/Order Number: [id number] Exam Date: 11/10/2023 13:00 Report Date: 11/10/2023 14:58 At the request of: CAESAR TEIXEIRA Procedure: MR head/brain wo con EXAM: MR head/brain wo con HISTORY: Tremor COMPARISON: MRI brain 08/23/2018 TECHNIQUE: MRI of the brain was performed without contrast. FINDINGS: There is no restricted diffusion to suggest acute infarct. There is no midline shift, mass effect, or abnormal extraaxial fluid collections. Mild enlarged cortical sulci, consistent with age appropriate cerebral atrophy. There are nonspecific scattered foci of T2/FLAIR signal abnormality in the subcortical and periventricular white matter, which appear stable since 2018. Statistically, these are most likely based on chronic microvascular ischemia for this age. The major intracranial flow voids are visualized. The cerebellar tonsils are normal in position. The orbits are unremarkable. The calvarium and extracranial soft tissues are unremarkable. The paranasal sinuses and mastoid air cells are clear. MR/MR head/brain wo con IMPRESSION: No acute intracranial abnormality. Mild chronic microvascular ischemia and involutional changes. Electronically authenticated by: ORESTES GARIBAY Date: 11/10/2023 14:58
== END 2023-11-10 12:34 | disposition home or self-care (01) ==
LOC: MRI 12:34
PROVIDERS: PCP Nurse Practitioner; Visit Provider Psychiatry & Neurology Neurology
DX: R25.1 Tremor, unspecified (principal)
CPT/HCPCS: 70551

== ENCOUNTER 2023-11-13 06:35 | Outpatient (OUT) | payer MEDICARE, MEDICAID, SELFPAY ==
[2023-11-13 07:23] LABS: Anion Gap 12.2; Carbon Dioxide 27.2 mmol/L (21.0-32.0); Chloride 108 mmol/L (98-107); Estimated GFR (African America >60 (>=60); Estimated GFR (Non-African Ame >60 (>=60); Potassium 4.4 mmol/L (3.5-5.1); Sodium 143 mmol/L (136-145)
[2023-11-16 18:07] LABS: Tacrolimus (FK506), Blood 8.1 ng/mL (2.0-20.0)
== END 2023-11-13 06:36 | disposition home or self-care (01) ==
LOC: LAB 06:37
PROVIDERS: PCP Nurse Practitioner
DX: R79.9 Abnormal finding of blood chemistry, unspecified (principal); Z94.0 Kidney transplant status; Z48.298 Encounter for aftercare following other organ transplant; D84.9 Immunodeficiency, unspecified
CPT/HCPCS: 36415; 80051; 80197; 82565; 84520

== ENCOUNTER 2023-11-17 19:54 | Outpatient (OUT) | payer MEDICARE, MEDICAID, SELFPAY | END 2023-11-17 19:55 | disposition home or self-care (01) | LOC: SLEEP 19:54 | PROVIDERS: PCP Nurse Practitioner; Visit Provider Nurse Practitioner | DX: G47.33 Obstructive sleep apnea (adult) (pediatric) (principal) | CPT/HCPCS: 95811 ==

== ENCOUNTER 2023-11-20 06:39 | Outpatient (OUT) | payer MEDICARE, MEDICAID, SELFPAY ==
--- OUTSIDE RECORDS SUMMARY | 2023-11-20 06:45 | XMS_ITS | CCD ---
Author Name Unknown Address [address] [place] [address] Organization [facility] Care Team Providers Care Trainer Name Role Phone Kiana Zuly Unavailable Unavailable Primary Care Provider Unavailabl e CAREY ROB Referring Unavailable KASMANI, ROB Referring Unavailable KASMANI, ROB Referring Unavailable RIST, RENA Referring Unavailable JOHARTANA Referring Unavailable RIST, RENA Referring Unavailable RIST, RENA Referring Unavailable RIST, RENA Referring Unavailable RIST, RENA Referring Unavailable PEPE CASE Attending Unavailable PEPE CASE Admitting Unavailable AICHHOLZ, ZULY Referring Unavailable AICHHOLZ, ZULY Primary Care Unavailable Aichholz [facility], Zuly Primary Care Provider Miguel HComfort Unavailable Shirin RPh,PharmD, Angel Unavailable Unavailab makayla Leigh RP,PharmD, Te Unavailable Unavamatthew lable Aicholz [facility] Primary Care Provider MIGUEL CARDONA Attending Unavailable MISC, DR BURCH Admitting Unavailable MISC, DR BURCH Consulting Unavailable AICHHOLZ, [facility] ZULY Primary Care Unavailable MISC, DR BURCH Attending Unavailable MISC, DR BURCH Admitting Unavailable MISC, DR BURCH Consulting Unavailable AICHHOLZ, LIFE INSURANCE SPECIALIST ZULY Primary Care Unavailable MISC, DR BURCH Attending Unavailable ARCELIA PIZARRO Consulting Unavailable KE BURNHAM Attending Unavailable KE BURNHAM Admitting Unavailable DR MÓNICA JIMENEZ Consulting Unavailable AICHHOLZ, LIFE INSURANCE SPECIALIST ZULY Primary Care Unavailable KE BURNHAM Consulting Unavailable MISC, DR DOCTOR Consulting Unavailable MISC, DR DOCTOR Attending Unavailable AICHHOL, [facility] ZULY Primary Care Unavailable MISC, DR DOCTOR Admitting Unavailable MISC, DR DOCTOR Consulting Unavailable MISC, DR DOCTOR Attending Unavailable AICHHOL, [facility] ZULY Primary Care Unavailable MISC, DOCTOR Admitting Unavailable MISC, DR DOCTOR Consulting Unavailable AICHHOL, [facility] ZULY Primary Care Unavailable MISC, DOCTOR Admitting Unavailable MISC, DR DOCTOR Attending Unavailable MELINDA, DR GEORGE Munoz Consulting Unavailable MELINDA, DR GEORGE Munoz Attending Unavailable AICHHOLZ, [facility] ZULY Primary Care Unavailable MELINDA, DR GEORGE Munoz Admitting Unavailable NAUN ., KE Consulting Unavailable MIRANDA, LYNDSAY Consulting Unavailable MELINDA, DR GEORGE Munoz Consulting Unavailable NAUN ., KE Attending Unavailable NAUN ., KE Admitting Unavailable AICHHOLZ, [facility] ZULY Primary Care Unavailable NAUN ., KE Consulting Unavailable GIAN HERRING Consulting Unavailable AICHOL, LIFE INSURANCE SPECIALIST ZULY Consulting Unavailable AICHOL, LIFE INSURANCE SPECIALIST ZULY Attending Unavailable AICHOL, LIFE INSURANCE SPECIALIST ZULY Admitting Unavailable AICHHOL, [facility] ZULY Primary Care Unavailable MISC, DR Consulting Unavailable MISC, DR BURCH Admitting Unavailable MISC, DR DOCTOR Attending Unavailable AICHHOLZ, [facility] ZULY Primary Care Unavailable MISC, DR Consulting Unavailable MISC, DR DOCTOR Attending Unavailable MISC, DOCTOR Admitting Unavailable AICHHOLZ, [facility] ZULY Primary Care Unavailable MISC, DR BURCH Admitting Unavailable MISC, DR Consulting Unavailable MISC, DR DOCTOR Attending Unavailable AICHHOL, [facility] ZULY Primary Care Unavailable MISC, DR DOCTOR Admitting Unavailable MISC, DR DOCTOR Consulting Unavailable AICHOL, [facility] ZULY Primary Care Unavailable MISC, DR DOCTOR Attending Unavailable MISC, DOCTOR Admitting Unavailable MISC, DR DOCTOR Consulting Unavailable AICHHOL, [facility] ZULY Primary Care Unavailable MISC, DR DOCTOR Attending Unavailable AICHOL, [facility] INSURANCE SPECIALIST ZULY Consulting [facility]available [facility], [facility] ZULY Attending [facility] Admitting Unavailable [facility] Primary Care Unavailable DR MÓNICA JIMENEZ Consulting Unavailable [facility] Primary Care Provider Cindy WHIPPLETranjuan j Feliz Unavailable [phone] [facility] Primary Care Provider [phone] Evan White DO Unavailable AICHHOLZ, ZULY Primary Care Unavailable AICHHOLZ, ZULY Primary Care Unavailable AICHHOLZ, ZULY Primary Care Unavailable STEVE LATHAM Attending Unavailable AICHHOLZ, ZULY Primary Care Unavailable STEVE LATHAM Referring Unavailable AICHHOLZ, ZULY Primary Care Unavailable EVAN WHITE Referring Unavailyoko e HAKEEM ALAMO Attending Unavailable AICHHOLZ, ZULY Primary Care Unavailable DAISHA MAX Referring Unavailable DAISHA MAX Attending Unavailable REBECA OLSEN Attending Unavailable SELF, SELF Referring Unavailable AICHHOLZ, ZULY Primary Care Unavailable AICHHOLZ, ZULY Primary Care Unavailable STEVE LATHAM Admitting Unavailable CONSULT, INFECTIOUS DISEASE Consulting Unav ailable AICHHOLZ, ZULY Primary Care Unavailable KEVIN SAGE Attending Unavailable STEVE LATHAM Referring Unavailable AICHHOLZ, ZULY Attending Unavailable Allergies Allergy Classification Reported Allergen(s) Allergy Type Date of Onset Reaction(s) Facility (1 source) Shellfish; 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: [SHELLFISH DERIVED] Propensity to adverse reactions (disorder) 8 [facility] (20 sources) Shellfish-Derive d Products Propensity to adverse reactions to drug 9 [facility] (1 source) Shellfish Drug allergy (disorder) [facility] Rep[facility] Medications Current Medications Medication Drug Class(es) Dates Sig (Normalized) Sig (Original) ascorbic acid 100 mg / biotin 0.15 mg / calcium pantothenate 5 mg / folic acid 1 mg / niacin 20 mg / pyridoxine 10 mg / riboflavin 1.7 mg / thiamine mononitrate 1.5 mg / vitamin b 12 0.006 mg oral capsule (6 sources) Nicotinic Acid, Vitamin B12, Vitamin C take 1 capsule by mouth once daily b ngbuztl-B-mcanz acid (NEPHROCAPS) 1 MG capsule Take 1 capsule by mouth daily 0 Active cholecalciferol 1000 unt oral tablet (1 source) Vitamin D take 1 tablet by mouth once daily vitamin D (CHOLECALCIFEROL) 1000 UNIT TABS tablet Take 1,000 Units by mouth daily 0 Active ciprofloxacin 500 mg oral tablet (1 source) Quinolone Antimicrobial Start: 06-12-2022 End: 06-26-2022 take 1 tablet by mouth twice daily ciprofloxacin (Cipro) 500 MG tablet Indications: Kidney replaced by transplant , Liver replaced by transplant , Abnormal blood chemistry Take 1 tablet by mouth 2 times daily for 14 days. 28 tablet 0 06/12/2022 06/26/2022 Active CUSTOM MEDICATION (1 source) Start: 09-10-2023 CUSTOM MEDICATION Labs to be obtained: 1- Tacrolimus level, trough - collect twice weekly until 09/24/23, then weekly until 10/08/23, them once every two weeks there after. 2- Itraconazole level - obtain once between 09/14-09/18. 3- Chem 6 - Obtain weekly while on itraconazole Fax results to: Dr. White - [phone] Transplant Neph - [phone] 99 Each 0 09/10/2023 Active Drug or medicament (substance) (1 source) Start: 09-10-2023 folic acid 1 mg oral tablet (6 sources) take 1 tablet by mouth once daily folic acid (FOLVITE) 1 MG tablet Take 1 mg by mouth daily 0 Active gabapentin 400 mg oral capsule (20 sources) Anti-epileptic Agent Start: 06-07-2023 End: 09-11-2023 take 1 capsule by mouth at bedtime Gabapentin 400 MG capsule Take 1 capsule by mouth at bedtime. 0 06/07/2023 Active Start: 05-15-2022 End: 05-20-2022 take 400 mg by mouth once daily at bedtime 400 mg, Oral, DAILY AT BEDTIME, First dose on Marta 05/15/22 at 2215, Until Discontinued Start: 06-12-2020 End: 06-12-2023 take 4 capsules by mouth once daily at bedtime for pain gabapentin 100 MG capsule Take 4 capsules by mouth at bedtime. Take daily at bedtime for foot and ankle pain. 0 06/12/2020 06/12/2023 Discontinued lactulose [id number] mg powder for oral solution (19 sources) Osmotic Laxative take 20 g by mouth three times daily lactulose (CEPHULAC) 20 g packet Take 20 g by mouth 3 times daily 0 Active magnesium oxide 400 mg oral tablet (20 sources) Start: 09-30-2023 take 2 tablets by mouth once daily magnesium oxide 400 (240 Mg) MG Take 2 tablets by mouth daily. 180 tablet 3 09/30/2023 Active Start: 09-08-2023 End: 09-11-2023 Start: 09-05-2023 End: 09-07-2023 take 400 mg by mouth once daily 400 mg, Oral, DAILY, F irst dose on 09/05/23 at 0900, Until Discontinued Start: 09-04-2023 End: 09-04-2023 take 1 dose by mouth once 800 mg, Oral, ONCE, 1 dose, On 09/04/23 at 0800 Start: 05-20-2022 End: 01-16-2023 take 2 tablets by mouth once daily Magnesium Oxide 500 MG tablet Take 2 tablets by mouth daily. 20 tablet 0 05/20/2022 01/16/2023 Discontinued take 1 tablet by magy th once daily magnesium oxide (MAG-OX) 400 MG tablet Take 400 mg by mouth daily 0 Active midodrine hydrochloride 10 mg oral tablet (20 sources) alpha-Adrenergic Agonist Start: 06-09-2018 Midod rine HCl 10 MG Tab tablet Take 1 tablet by mouth as needed. 0 06/09/2018 Active take 2 tablets by mo uth three times daily as needed midodrine (PROAMATINE) 5 MG tablet Take 10 mg by mouth 3 times daily Prn with dialysis 0 Active take 2 tablets by mo uth once daily as needed midodrine 5 MG Tab tablet Take 10 mg by mouth daily as needed. Iv durning Dialysis Active Multiple Vitamins-Minerals (THERAPEUTIC MULTIVITAMIN-MINERALS) tablet (6 sources) take 1 tablet by mouth once daily Multiple Vitamins-Minerals (THERAPEUTIC MULTIVITAMIN-MINERALS) tablet Take 1 tablet by mouth daily 0 Active mycophenolic acid 360 mg delayed release oral tablet (20 sources) Antimetabolite Immunosuppressant Star t: 11-0 05-19 take 1 tablet by mouth every twelve hours Mycophenolate sodium (MYFORTIC) [address] tablet DR Take 1 tablet by mouth every 12 hours. 60 tablet 5 10/05/2023 Active Start: 09-03-2023 End: 09-11-2023 take 360 mg by mouth every twelve hours Start: 03-10-2023 End: 09-01-2023 Start: 05-15-2022 End: 05-20-2022 take 1 tablet by mouth every twelve hours 360 mg, Oral, EVERY 12 HOURS NON-STANDARD, First dose on [facility] 05/15/22 at 2245, Until Discontinued Give on an empty stomach. Swallow tablet whole; do not split, crush, or chew. Start: 03-15-2021 End: 09-10-2023 take 2 tablets by mouth every twelve hours Mycophenolate sodium (MYFORTIC) [address] Indications: S/P liver transplant , -donor kidney transplant recipient Take 2 tablets by mouth every 12 hours. 360 tablet 1 09/12/2022 Active rifAXIMin 550 mg oral tablet (12 sources) Rifamycin Antibacterial take 1 tablet by mouth twice daily rifaximin (XIFAXAN) 550 MG tablet Take 550 mg by mouth 2 times daily 0 Active RifAXIMin (XIFAX AN PO) Take by mouth. Active sertraline 25 mg oral tablet (1 source) Serotonin Reuptake Inhibitor take 1 tablet by mouth once daily sertraline 25 MG tablet Take 25 mg by mouth daily. 0 Active sevelamer carbonate 800 mg oral tablet (19 sources) Phosphate Binder Start: 07-17-2018 take 1 tablet by mouth three times daily at mealtime sevelamer 800 MG Tab tablet Take 800 mg by mouth 3 times daily with meals. 0 07/17/2018 Active take 2 tablets by mo ut three times daily at mealtime sevelamer (RENVELA) 800 MG tablet Take 2 tablets by mouth 3 times daily (with meals) 0 Active sulfamethoxazole 800 mg / trimethoprim 160 mg oral tablet (7 sources) Dihydrofolate Reductase Inhibitor Antibacterial, Sulfonamide Antimicrobial Start: 09-23-2023 End: 09-22-2024 take 1 tablet by mouth three times weekly Sulfamethoxazole-trimethoprim 800-160 MG per tablet Indications: Need for prophylactic measure Take 1 tablet by mouth three times a week. 12 tablet 11 09/23/2023 09/22/2024 Active Start: 09-04-2023 End: 09-11-2023 take 1 tablet by mouth three times weekly, then take 1 tablet by mouth once daily 1 tablet, Oral, THREE TIMES WEEKLY (Once per day on Thu), First dose (after last modification) on Thu09/04/23 at 0900, Until Discontinued Start: 08-26-2023 End: 09-01-2030 Start: 08-26-2023 take 1 tablet by magy twice daily Sulfamethoxazole-trimethoprim 800-160 MG per tablet Take 1 tablet by mouth 2 times daily. 0 08/26/2023 Suspended Start: 07-07-2022 End: 07-07-2022 sulfamethoxazole-trimethopri m (BACTRIM DS) 800-160 MG per tablet 1 tablet tacrolimus 0.2 mg granules for oral suspension (20 sources) Calcineurin Inhibitor Immunosuppressant Start: 09-10-2023 End: 01-09-2024 Tacrolimus 0.2 MG Pack mix contents of 1 packet with 15-30ml of room temperature water and drink every other day as directed. first dose to be 09/12. 30 Each 1 09/10/2023 01/09/2024 Active Start: 09-04-2023 End: 09-08-2023 take 0.5 mg by mouth once daily 0.5 mg, Oral, DAILY, F irst dose (after last modification) on Thu09/04/23 at 0900, Until Discontinued Do not split, break, crush, or open doses of this medication. Contact pharmacy if altered dose or route needed. Start: 03-10-2023 End: 09-10-2023 take 0.5 mg by mouth every twelve hours 0.5 mg, Oral, EVERY 12 HOURS, First dose on Thu08/28/23 at 2100, Until Discontinued Do not split, break, crush, or open doses of this medication. Contact pharmacy if altered dose or route needed. Start: 08-20-2022 take 1 capsule by [facility] every twelve hours Tacrolimus (PROGRAF) 0.5 MG capsule Indications: -donor kidney transplant recipient , Liver transplant recipient Take 1 capsule by mouth every 12 hours. 180 capsule 1 08/20/2022 Active Start: 05-15-2022 End: 05-20-2022 take 1 mg by mouth every twelve hours 1 mg, Oral, EVERY 12 HOURS, First dose on Thu05/15/22 at 2215, Until Discontinued Do not split, break, crush, or open doses of this medication. Contact pharmacy if altered dose or route needed. Do not split, break, crush, or open doses of this medication. Contact pharmacy if altered dose or route needed. Start: 03-14-2022 take 1 capsule by [facility] every twelve hours tacrolimus (PROGRAF) 0.5 MG capsule Indications: -donor kidney transplant recipient , Liver transplant recipient Take 2 capsules by mouth every 12 hours. 360 capsule 1 03/14/2022 Active Start: 01-11-2021 take 1 capsule by mo ut twice daily tacrolimus (generic) 0.5 MG capsule Indications: Liver transplant recipient , -donor kidney transplant recipient Take 3 capsules by mouth 2 times daily. 180 capsule 5 01/11/2021 Active tamsulosin hydrochloride 0.4 mg oral capsule (20 sources) alpha-Adrenergic Ibrahima Start: 06-16-2023 End: 09-11-2023 take 1 capsule by mouth once daily Tamsulosin HCl 0.4 MG capsule take 1 capsule by mouth once daily 90 capsule 3 06/16/2023 Active Start: 06-08-2023 take 1 capsule by mo ut once daily Tamsulosin HCl 0.4 MG capsule take 1 capsule by mouth once daily 30 capsule 11 06/08/2023 Active Start: 06-19-2022 take 1 capsule by mo ut once daily Tamsulosin HCl 0.4 MG capsule Take 1 capsule by mouth daily. 30 capsule 11 06/19/2022 Active Start: 05-23-2022 take 1 capsule by mo [facility] once daily Tamsulosin HCl 0.4 MG capsule Take 1 capsule by mouth daily. 30 capsule 0 05/23/2022 Active Start: 05-16-2022 End: 05-20-2022 take 0.4 mg by mouth once daily 0.4 mg, Oral, DAILY, F irst dose on Thu05/16/22 at 0900, Until Discontinued Slow release product. Do not chew or crush vitamin d 1000 unt oral tablet (5 sources) take 1 tablet by magy th once daily vitamin D (CHOLECALCIFEROL) 1000 UNIT TABS tablet Take 1,000 Units by mouth daily 0 Active Completed/Discontinued Medications Medication Drug Class(es) Dates Sig (Normalized) Sig (Original) acetaminophen 325 mg oral tablet (6 sources) Start: 09-04-2023 End: 09-11-2023 take 650 mg by mouth every six hours as needed 650 mg, Oral, EVERY 6 HOURS NEEDED, Starting on Thu09/04/23 at 0925, Until Thu09/11/23 at 1645, Moderate Pain, Mild Pain, Oral temp > 100.4 F Maximum dose of acetaminophen is 2000 mg from all sources in 24 hours. Start: 09-03-2023 End: 09-11-2023 take 325 mg by mouth every twenty-four hours 325 mg, Oral, EVERY 24 HOURS, First dose on Marta 09/03/23 at 1600, Until Discontinued Give just prior to each amphotericin b dose Start: 08-31-2023 End: 09-04-2023 take 325 mg by mouth every six hours as needed 325 mg, Oral, EVERY 6 HOURS NEEDED, Starting on Thu09/04/23 at 0405, Until Thu09/04/23 at 0926, Moderate Pain, Mild Pain, Oral temp > 100.4 F Maximum dose of acetaminophen is 2000 mg from all sources in 24 hours. Start: 08-29-2023 End: 08-31-2023 take 650 mg by mouth every four hours as needed 650 mg, Oral, EVERY 4 HOURS NEEDED, Starting on 08/29/23 at 2325, Until 08/31/23 at 0732, Oral temp > 100.4 F, Mild Pain Maximum dose of acetaminophen is 4000 mg from all sources in 24 hours. Start: 05-15-2022 End: 05-20-2022 take 1 tablet by mouth every six hours as needed acetaminophen (TYLENOL) tablet 650 mg allopurinol 100 mg oral tablet (20 sources) Xanthine Oxidase Inhibitor Start: 08-29-2023 End: 09-11-2023 take 200 mg by mouth once daily 200 mg, Oral, DAILY, First dose on 08/29/23 at 0900, Until Discontinued Start: 01-15-2023 take 2 tablets by [facility] once daily Allopurinol 100 MG tablet Indications: Abnormal blood chemistry Take 2 tablets by mouth daily. 180 tablet 3 01/15/2023 Active Start: 05-17-2022 End: 05-20-2022 allopurinol (ZYLOPRIM) table t 100 mg Start: 05-16-2022 End: 05-16-2022 take 200 mg by mouth once daily 200 mg, Oral, DAILY, F irst dose on Thu05/16/22 at 0900, Until Discontinued Start: 12-30-2021 take 2 tablets by [facility] once daily allopurinol 100 MG tablet Indications: Abnormal blood chemistry take 2 tablets by mouth once daily 180 tablet 3 12/30/2021 Active Start: 01-28-2021 take 2 tablets by [facility] once daily allopurinol 100 MG tablet Indications: Abnormal blood chemistry Take 2 tablets by mouth daily. 180 tablet 3 01/28/2021 Active amLODIPine 5 mg oral tablet (20 sources) Dihydropyridine Calcium Channel Ibrahima Start: 09-01-2023 End: 09-11-2023 take 5 mg by mouth every twenty-four hours 5 mg, Oral, EVERY 24 HOURS, First dose on Thu09/03/23 at 2100, Until Discontinued Start: 08-29-2023 End: 09-02-2023 take 5 mg by mouth once daily 5 mg, Oral, DAILY, First dose on Thu08/29/23 at 0900, Until Discontinued Start: 05-16-2022 End: 05-20-2022 take 5 mg by mouth once daily 5 mg, Oral, DAILY, First dose on Thu05/16/22 at 0900, Until Discontinued aspirin 81 mg chewable tablet (20 sources) Platelet Aggregation Inhibitor, Nonsteroidal Anti-inflammatory Drug Start: 10-08-2020 End: 09-11-2023 take 81 mg by mouth once daily 81 mg, Oral, DAILY, First dose on Thu08/29/23 at 0900, Until Discontinued take 1 tablet by mouth once radha y aspirin 81 MG chewable tablet Take 81 mg by mouth daily 0 Active atorvastatin 20 mg oral tablet (20 sources) HMG-CoA Reductase Inhibitor Start: 05-15-2022 End: 05-20-2022 take 20 mg by mouth once daily at bedtime 20 mg, Oral, DAILY AT BEDTIME, First dose on Thu05/15/22 at 2215, Until Discontinued Start: 09-06-2020 End: 09-11-2023 take 20 mg by mouth once daily at bedtime 20 mg, Oral, DAILY AT BEDTIME, First dose on Thu08/28/23 at 2100, Until Discontinued benzocaine 140 mg/ml / butamben 20 mg/ml / tetracaine 20 mg/ml mucosal spray (1 source) Elizabeth Local Anesthetic, Standardized Chemical Allergen Start: 09-02-2023 End: 09-02-2023 Topical, NEEDED, Starting on Thu09/02/23 at 0807, Until Discontinued, Intra-op/Intra-Proc benzocaine 15 mg / menthol 3.6 mg oral lozenge (1 source) Standardized Chemical Allergen Start: 05-15-2022 End: 05-20-2022 benzocaine-menthol (CEPACOL) 15-3.6 MG per lozenge 1 lozenge benzonatate 100 mg oral capsule (2 sources) Non-narcotic Antitussive Start: 08-20-2023 End: 09-10-2023 calcium chloride 0.0014 meq/ml / potassium chloride 0.004 meq/ml / sodium chloride 0.103 meq/ml / sodium lactate 0.028 meq/ml injectable solution (4 sources) Start: 09-05-2023 End: 09-05-2023 500 mL, Intravenous, ONCE, 1 dose, On 09/05/23 at 0800 Fluid Bolus Start: 05-18-2022 End: 05-18-2022 lactated ringers IV solution Start: 05-15-2022 End: 05-17-2022 lactated ringers IV solution camphor 5 mg/ml / menthol 5 mg/ml topical lotion (19 sources) Start: 06-06-2020 End: 06-12-2023 camphor-menthol 0.5-0.5 % Lotion Apply 1 Application topically as needed. 222 mL 0 06/06/2020 06/12/2023 Discontinued cefTRIAXone 2000 mg injection (2 sources) Cephalosporin Antibacterial Start: 05-15-2022 End: 05-20-2022 take 2 g intravenously every twenty-four hours cefTRIAXone (ROCEPHIN) 2 g in dextrose 50mL premix IVPB Diatrizoate (1 source) Start: 05-20-2022 End: 05-20-2022 diatrizoate Meglumine (Cystografin) 30 % UR solution 80 mL diphenhydrAMINE hydrochloride 25 mg oral tablet (1 source) Histamine-1 Receptor Antagonist Start: 09-03-2023 End: 09-11-2023 take 25 mg by mouth every twenty-four hours 25 mg, Oral, EVERY 24 HOURS, First dose on Marta 09/03/23 at 1600, Until Discontinued Give 30 minutes prior to each amphotericin b dose docusate sodium 100 mg oral capsule (4 sources) Start: 05-15-2022 End: 05-16-2022 take 200 mg by mouth every twelve hours 200 mg, Oral, EVERY 12 HOURS, First dose on Marta 05/15/22 at 2215, Until Discontinued Start: 05-23-2020 End: 05-20-2022 take 2 capsules by mouth every twelve hours docusate 100 MG capsule Take 2 capsules by mouth every 12 hours. 120 capsule 0 05/23/2020 05/20/2022 Discontinued (Stop Taking at Discharge) famotidine 20 mg oral tablet (20 sources) Histamine-2 Receptor Antagonist Start: 08-28-2023 End: 09-09-2023 take 20 mg by mouth twice daily 20 mg, Oral, 2 TIMES DAILY, First dose on Thu08/28/23 at 1800, Until Discontinued Start: 05-16-2022 End: 05-20-2022 take 20 mg by mouth once daily 20 mg, Oral, DAILY, Fir st dose on Thu05/16/22 at 0900, Until Discontinued 2 ml fentaNYL 0.05 mg/ml injection (1 source) Opioid Agonist Start: 09-02-2023 End: 09-02-2023 Intravenous, Administer over 2 Minutes, NEEDED, Starting on Thu09/02/23 at 0818, Until Discontinued, Intra-op/Intra-Proc FLUoxetine 40 mg oral capsule (2 sources) Serotonin Reuptake Inhibitor End: 05-20-2022 take 1 capsule by mouth once daily FLUoxetine 40 MG capsule Take 40 mg by mouth daily. 0 05/20/2022 Discontinued (Stop Taking at Discharge) 250 ml glucose 50 mg/ml injection (1 source) Start: 09-03-2023 End: 09-09-2023 50 mL, Intravenous, NEEDED, Starting on Thu09/03/23 at 1519, Until Thu09/09/23 at 1457, See admin instructions Use sufficient volume to flush entire line BEFORE and AFTER amphotericin B liposomal administration. guaiFENesin 20 mg/ml oral solution (2 sources) Start: 08-29-2023 End: 09-11-2023 take 200 mg by mouth every four hours as needed 200 mg, Oral, EVERY 4 HOURS NEEDED, Starting on Thu08/29/23 at 0803, Until Thu09/11/23 at 1645, Cough Start: 05-15-2022 End: 05-20-2022 take 400 mg by mouth every six hours as needed guaiFENesin (ROBITUSSIN) oral solution 400 mg 1 ml heparin sodium, porcine 5000 unt/ml prefilled syringe (3 sources) Unfractionated Heparin, Anti-coagulant Start: 08-28-2023 End: 09-11-2023 inject 5000 [IU] by subcutaneous injection every eight hours 5,000 Units, Subcutaneous, EVERY 8 HOURS (0800/1600/2200), First dose on Thu08/28/23 at 1745, Until Discontinued Start: 05-15-2022 End: 05-20-2022 heparin injection 5,000 Unit s iodixanol (VISIPAQUE) injection 320 mg/mL for [facility] (1 source) Start: 05-17-2022 End: 05-20-2022 iodixanol (VISIPAQUE) injection 320 mg/mL for [facility] itraconazole 10 mg/ml oral solution (4 sources) Azole Antifungal Start: 09-10-2023 End: 10-08-2023 take 200 mg by mouth every twelve hours Itraconazole 10 MG/ML Solution Take 20 mL by mouth every 12 hours. 1200 mL 0 09/10/2023 10/08/2023 Discontinued (Reorder) Start: 09-06-2023 End: 09-11-2023 take 200 mg by mouth every twelve hours Start: 09-03-2023 End: 09-06-2023 200 mg, Oral, EVERY 8 HOURS, 9 doses, First dose on Thu09/03/23 at 1700, Last dose on Thu09/06/23 at 0600 Administer on an empty stomach. Hold tube feeds for 1 hour before and 2 hours after administration. 10 ml lidocaine hydrochloride 10 mg/ml injection (2 sources) Antiarrhythmic, Amide Local Anesthetic Start: 09-02-2023 End: 09-02-2023 Infiltration, NEEDED, Starting on Thu09/02/23 at 0831, Until Discontinued, Intra-op/Intra-Proc Start: 09-02-2023 End: 09-02-2023 Topical, NEEDED, Starting on Thu09/02/23 at 0828, Until Discontinued, Intra-op/Intra-Proc losartan potassium 50 mg ora l tablet (20 sources) Angiotensin 2 Receptor Ibrahima Start: 02-05-2023 End: 09-10-2023 Start: 01-05-2023 take 1 tablet by magy th twice daily Losartan 50 MG tablet take 1 tablet by mouth twice a day 60 tablet 01/05/2023 Active Start: 01-06-2022 End: 05-20-2022 take 1 tablet by mouth twice daily losartan 50 MG tablet take 1 tablet by mouth twice a day 60 tablet 01/06/2022 Active Start: 12-24-2020 End: 12-19-2021 take 1 tablet by mouth twice daily losartan 50 MG tablet Take 1 tablet by mouth 2 times daily. 60 tablet 12/24/2020 12/19/2021 Active 50 ml magnesium sulfate 80 mg/ml injection (6 sources) Start: 09-09-2023 End: 09-09-2023 4 g, Intravenous, Administer over 4 Hours, ONCE, 1 dose, On Thu09/09/23 at 0800 Start: 09-07-2023 End: 09-07-2023 4 g, Intravenous, Administer over 4 Hours, ONCE, 1 dose, On 09/07/23 at 1145 Start: 09-05-2023 End: 09-05-2023 4 g, Intravenous, Administer over 4 Hours, ONCE, 1 dose, On 09/05/23 at 0800 Start: 05-18-2022 End: 05-20-2022 Magnesium Sulfate 4 g in jorge rile water 50 ml premix IVPB melatonin 3 mg oral tablet (20 sources) Start: 08-28-2023 End: 09-11-2023 take 6 mg by mouth once daily at bedtime as needed 6 mg, Oral, DAILY AT BEDTIME NEEDED, Starting on Thu08/28/23 at 1738, Until Thu09/11/23 at 1645, Insomnia Start: 05-15-2022 End: 05-20-2022 melatonin tablet 3 mg 2 ml midazolam 1 mg/ml injection (2 sources) Benzodiazepine Start: 09-02-2023 End: 09-03-2023 Intravenous, NEEDED, Starting on Thu09/02/23 at 0818, Until Discontinued, Intra-op/Intra-Proc mineral oil 0.15 mg/mg / petrolatum 0.83 mg/mg ophthalmic ointment (1 source) Start: 09-04-2023 End: 09-11-2023 1 Application, Both Eyes, NEEDED, Starting on Thu09/04/23 at 2006, Until Thu09/11/23 at 1645, Dry Eyes Apply thin ribbon inside lower eyelid Patient may self-administer. 1 ml morphine sulfate 4 mg/ml cartridge (2 sources) Opioid Agonist Start: 05-15-2022 End: 05-15-2022 Morphine Sulfate (PF) injection 4 mg multivitamin w/ minerals tablet (3 sources) Start: 09-06-2020 End: 05-20-2022 take 1 tablet by mouth once daily multivitamin w/ minerals tablet Take 1 tablet by mouth daily. Further refills to be provided by PCP's office. 30 tablet 3 09/06/2020 05/20/2022 Discontinued (Stop Taking at Discharge) Start: 09-06-2020 take 1 tablet by magy th once daily multivitamin w/ minerals tablet Take 1 tablet by mouth daily. Further refills to be provided by PCP's office. 30 tablet 3 09/06/2020 Active MYCOPHENOLATE (1 source) Start: 08-28-2023 End: 09-03-2023 take 1 tablet by mouth every twelve hours 540 mg, Oral, EVERY 12 HOURS NON-STANDARD, First dose on Thu08/28/23 at 2100, Until Discontinued Give on an empty stomach. Swallow tablet whole; do not crush, split or chew. Contact pharmacy if alternate route or dose is needed. ondansetron 4 mg disintegrating oral tablet (20 sources) Serotonin-3 Receptor Antagonist Start: 06-14-2020 End: 06-12-2023 ondansetron (Zofran ODT) 4 M G Tab Dispersible tablet Dissolve 1 tablet on tongue every 6 hours as needed for nausea or vomiting. 20 tablet 0 06/14/2020 06/12/2023 Discontinued take 1 tablet by magy th every eight hours as needed ondansetron 4 MG tablet Take 1 tablet by mouth every 8 hours as needed for Nausea / Vomiting. 0 Active ondansetron 4mg/2ml (ZOFRAN) injection 4 mg (1 source) Start: 05-15-2022 End: 05-20-2022 take 4 mg intravenously every six hours as needed ondansetron 4mg/2ml (ZOFRAN) injection 4 mg oxyCODONE hydrochloride 5 mg oral tablet (17 sources) Opioid Agonist Start: 05-20-2022 End: 06-12-2023 oxyCODONE 5 MG tablet Indications: Hydronephrosis due to obstruction of ureteral orifice Take 1 tablet by mouth every 4 hours as needed for Severe Pain or Moderate Pain for up to 5 doses. 5 tablet 0 05/20/2022 06/12/2023 Discontinued Start: 05-16-2022 End: 05-20-2022 take 1 tablet by mouth every four hours as needed oxyCODONE HCl (ROXICODONE) tablet 10 mg polyethylene glycol [id number] mg powder for oral solution (20 sources) Osmotic Laxative Start: 08-28-2023 End: 09-11-2023 17 g, Oral, DAILY NEEDED, Starting on Thu08/28/23 at 1738, Until Thu09/11/23 at 1645, Constipation 1st Line Start: 05-16-2022 End: 05-20-2022 polyethylene glycol (MIRALAX ) packet 17 g potassium bicarbonate 20 meq effervescent oral tablet (1 source) Start: 09-07-2023 End: 09-07-2023 40 mEq, Per NG tube, ONCE, 1 dose, On 09/07/23 at 1145 Do not swallow whole. Dissolve completely in 3-4 ounces of water or cold juice before drinking. If administering via J tube, dilute in sterile water, wait for tablet to stop fizzing, swirl the solution and draw into a syringe suitable for attaching to the tube. After administration, flush tube with 15-30 ml water. microencapsulated potassium chloride 20 meq extended release oral tablet (15 sources) Start: 09-10-2023 End: 09-10-2023 Start: 09-09-2023 End: 09-11-2023 40 mEq, Oral, DAILY, First d ose (after last modification) on Marta 09/10/23 at 0900, Until Discontinued Swallow tablets whole; do not crush, chew, or suck on tablet. Tablet may also be broken in half and each half swallowed separately. Start: 09-08-2023 End: 09-09-2023 20 mEq, Oral, ONCE, 1 dose, On 09/09/23 at 1115 Swallow tablets whole; do not crush, chew, or suck on tablet. Tablet may also be broken in half and each half swallowed separately. Start: 09-04-2023 End: 09-04-2023 20 mEq, Oral, ONCE, 1 dose, On Thu09/04/23 at 1245 Swallow tablets whole; do not crush, chew, or suck on tablet. Tablet may also be broken in half and each half swallowed separately. Start: 05-19-2022 End: 05-19-2022 potassium chloride (K-DUR) t ablet ER 40 mEq Start: 05-18-2022 End: 05-18-2022 potassium chloride (K-DUR) t ablet ER 20 mEq take 40 mEq by mouth once daily POTASSIUM CHLORIDE PO Take 40 mEq by mouth daily 0 Active potassium phosphate 155 mg / sodium phosphate, dibasic 852 mg / sodium phosphate, monobasic 130 mg oral tablet (2 sources) Start: 05-19-2022 End: 05-19-2022 sodium-potassium phosphate ( K-PHOS NEUTRAL) tablet 1,000 mg Start: 05-18-2022 End: 05-18-2022 sodium-potassium phosphate ( K-PHOS NEUTRAL) tablet 1,000 mg sennosides, retirement 8.6 mg oral tablet (1 source) Start: 05-16-2022 End: 05-20-2022 senna (SENOKOT) tablet 8.6 m g sodium chloride 30 mg/ml inhalation solution (6 sources) Start: 09-04-2023 End: 09-11-2023 4 mL, Nebulization, NEEDE D, Starting on Thu09/04/23 at 0926, Until Thu09/11/23 at 1645, Other, c/f mucus plugging Start: 09-03-2023 End: 09-09-2023 take 500 mL intravenously every twenty-four hours 500 mL, Intravenous, EVERY 24 HOURS, First dose on Thu09/03/23 at 1930, Until Discontinued Give 500 mL bolus after amphotericin B dose. Amphotericin B is incompatible with NS; use PRN D5W order for flushing line immediately following drug administration but prior to NS bolus. Start: 08-31-2023 End: 09-11-2023 2 spray, Right Nostril, N EEDED, Starting on 08/31/23 at 2142, Until Thu09/11/23 at 1645, Congestion Start: 08-28-2023 End: 09-11-2023 Intravenous, at 20 mL/hr, NEEDED, Starting on Thu08/28/23 at 1734, Until Thu09/11/23 at 1645, Carrier Fluid - See Admin. Inst 250mL 0.9NS to be used as carrier fluid for intermittent small volume or piggyback medication administration as needed. Infusion rate of the carrier fluid should be set at 20 mL/hr unless the rate as the intermittent medication is less than 20 mL/hr. For intermittent medications with a rate less than 20 mL/hr set the carrier fluid at that rate of the intermittent or piggy back medication. Start: 05-15-2022 End: 05-20-2022 sodium chloride 0.9% IV solu tion 250 mL (2 sources) Start: 09-12-2023 End: 09-11-2023 0.25 mg, Oral, EVERY 48 HOUR S, First dose (after last modification) on Thu09/12/23 at 0900, Until Discontinued Caution check route of administration. For sublingual administration, place liquid under tongue and allow absorption. Start: 09-09-2023 End: 09-11-2023 take 0.25 mg by mouth once daily 0.25 mg, Oral, DAILY, First dose on Thu09/09/23 at 0900, Until Discontinued Caution check route of administration. For sublingual administration, place liquid under tongue and allow absorption. (3 sources) Start: 09-04-2023 End: 09-09-2023 250 mg (rounded from 229.2 m g = 3 mg/kg 76.4 kg Adjusted weight), Intravenous, Administer over 2 Hours, EVERY 24 HOURS, First dose on Thu09/04/23 at 2000, Until Discontinued Amphotericin B liposomal is NOT compatible with normal saline. Flush line with D5W before and after administration. Start: 09-03-2023 End: 09-03-2023 250 mg (rounded from 229.2 m g = 3 mg/kg 76.4 kg Adjusted weight), Intravenous, Administer over 2 Hours, ONCE, 1 dose, On Thu09/03/23 at 1630 Amphotericin B liposomal is NOT compatible with normal saline. Flush line with D5W before and after administration. Start: 08-28-2023 End: 09-11-2023 take 4 mg intravenously every six hours as needed [Order 1 Start] Name: Ondansetron 4mg/2ml (ZOFRAN) injection 4 mg Signed Summary: 4 mg, Intravenous, EVERY 6 HOURS NEEDED, Starting on Thu08/28/23 at 1738, Until Thu09/11/23 at 1645, Nausea / Vomiting, 1st line for Nausea/Vomiting [Order 1 End] [Order 2 Start] Name: Ondansetron (ZOFRAN) tablet 4 mg Signed Summary: 4 mg, Oral, EVERY 6 HOURS NEEDED, Starting on Thu08/28/23 at 1738, Until Thu09/11/23 at 1645, Nausea / Vomiting, 1st line for Nausea/Vomiting [Order 2 End] Problems Active Problems Problem Classification Problem Date Documented Date Episodic/Chronic Alcohol-related disorders (20 sources) Alcoholic cirrhosis; 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: [Alcoholic cirrhosis of liver without ascites] Onset: 10-05-2018 10-05-2018 Chronic Chronic kidney disease (20 sources) End stage renal failure on dialysis; 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: [End-stage renal disease] Onset: 06-01-2018 06-22-2018 Chronic Coronary atherosclerosis and other heart disease (20 sources) Coronary arteriosclerosis; 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: [Atherosclerotic heart disease of [place] coronary artery without angina pectoris] Onset: 04-13-2023 04-22-2020 Chronic Disorders of lipid metabolism (6 sources) Mixed hyperlipidemia; 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: [Hyperlipidemia, unspecified] Onset: 12-29-2022 Chronic Essential hypertension (20 sources) Benign essential hypertension; 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: [Essential (primary) hypertension] Onset: 08-30-2022 04-22-2020 Chronic Genitourinary symptoms and ill-defined conditions (1 source) Finding of urological device; 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: [Encounter for attention to other artificial openings of urinary tract] Chronic Headache; including migraine (1 source) Headache; including migraine; 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: [HEADACHE UNSPECIFIED] Onset: 08-30-2022 Hyperplasia of prostate (5 sources) Benign prostatic hypertrophy with outflow obstruction; 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: [Benign prostatic hyperplasia with lower urinary tract symptoms] Onset: 09-15-2022 Chronic Hypertension with complications and secondary hypertension (3 sources) Renal hypertension; 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: [Hypertension secondary to other renal disorders] Onset: 08-28-2023 08-28-2023 Chronic Immunity disorders (11 sources) Immunosuppression; 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: [Immunodeficiency, unspecified] Onset: 06-06-2022 Chronic Mycoses (7 sources) Histoplasmosis; 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: [Histoplasmosis, unspecified] Onset: 08-28-2023 09-10-2023 Episodic Other aftercare (3 sources) Transplant follow-up; 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: [Encounter for aftercare following other organ transplant] Chronic Other aftercare (3 sources) Encounter for aftercare following other organ transplant; 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: [ENC AFTERCARE FLW OTH ORGN TRANSPL] Onset: 04-29-2023 Chronic Other aftercare (1 source) Follow-up status; 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: [Encounter for follow-up examination after completed treatment for conditions other than malignant neoplasm] Episodic Other aftercare (2 sources) Taking high risk medication; 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: [Other correction (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] Episodic Other aftercare (3 sources) Other correction (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; 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: [OTH PROJECT LEADER 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 THERAPY] Onset: 07-06-2022 Episodic Other diseases of kidney and ureters (2 sources) Other specified disorders of kidney and ureter; 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: [Other specified disorders of kidney and ureter] Onset: 08-28-2023 Chronic Other diseases of kidney and ureters (4 sources) Hydronephrosis; 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: [Hydronephrosis with ureteral stricture, not elsewhere classified] Episodic Other liver diseases (2 sources) Cirrhosis of liver Chronic Other liver diseases (1 source) Cirrhosis and chronic liver disease; 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: [Unspecified cirrhosis of liver] Onset: 04-12-2020 04-12-2020 Chronic Other liver diseases (20 sources) Chronic liver disease; 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: [Unspecified cirrhosis of liver] Onset: 04-12-2020 04-12-2020 Chronic Other liver diseases (5 sources) Liver transplant status; 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: [Liver transplant status] Onset: 04-22-2020 Chronic Other lower respiratory disease (1 source) Hypoxia; 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: [Hypoxemia] 09-10-2023 Episodic Other lower respiratory disease (2 sources) Hypoxemia; 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: [Hypoxemia] Onset: 08-28-2023 Episodic Other nutritional; endocrine; and metabolic disorders (20 sources) Obese class I; 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: [Obesity, unspecified] Onset: 04-09-2020 04-09-2020 Chronic Other screening for suspected conditions (not mental disorders or infectious disease) (3 sources) CT of chest abnormal; 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: [Abnormal findings on diagnostic imaging of other specified body structures] Onset: 08-28-2023 09-02-2023 Chronic Other screening for suspected conditions (not mental disorders or infectious disease) (18 sources) Abnormal quantity of physiologic substance; 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: [Blood chemistry abnormal] Onset: 06-22-2018 06-22-2018 Episodic Residual codes; unclassified (20 sources) Awaiting transplantation of liver; 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: [Awaiting organ transplant status] Onset: 07-24-2019 04-12-2020 Chronic Residual codes; unclassified (3 sources) Other general symptoms and signs; 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: [Other general symptoms] Onset: 08-28-2023 08-25-2023 Episodic Respiratory failure; insufficiency; arrest (adult) (3 sources) Acute respiratory failure; 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: [Acute respiratory failure with hypoxia] Onset: 08-28-2023 09-02-2023 Episodic Unclassified (17 sources) Awaiting transplantation of liver; 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: [Pre-transplant evaluation for liver transplant] Onset: 10-05-2018 10-05-2018 Unclassified (1 source) CONTACT W/AND (SUSP) EXPOS COVID-19; 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: [CONTACT W/AND (SUSP) EXPOS COVID-19] Onset: 06-20-2022 Unclassified (7 sources) New Patient Onset: 03-26-2023 03-26-2023 Unclassified (7 sources) Access to Medication(s) Onset: 03-26-2023 03-26-2023 Unclassified (7 sources) Safety: Avoid toxicity that would cause discontinuation Onset: 03-26-2023 03-26-2023 Unclassified (7 sources) Identify and eliminate barriers to patient adherence Onset: 03-26-2023 03-26-2023 Unclassified (7 sources) Ensure that patient is receiving therapeutic benefit Onset: 03-26-2023 03-26-2023 Past or Other Problems Problem Classification Problem Date Documented Date Episodic/Chronic Acute and unspecified renal failure (20 sources) Acute injury of kidney; 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: [Acute kidney failure, unspecified] Onset: 05-15-2022 Episodic Calculus of urinary tract (1 source) Calculus of ureter; 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: [CALCULUS OF URETER] Onset: 05-13-2022 Episodic Complications of surgical procedures or medical care (4 sources) Malfunction of incontinent external stoma of urinary tract; 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: [MALFUNC INCONT EXT STOMA URIN TRACT] Onset: 06-18-2022 Episodic Deficiency and other anemia (1 source) Anemia, unspecified; 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: [ANEMIA UNSPECIFIED] Onset: 11-08-2022 Episodic Fever of unknown origin (5 sources) Fever; 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: [Fever, unspecified] Onset: 08-28-2023 Resolved: 09-10-2023 08-28-2023 Episodic Genitourinary symptoms and ill-defined conditions (7 sources) Retention of urine, unspecified; 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: [Hematuria, unspecified] Onset: 05-11-2022 Episodic Nausea and vomiting (20 sources) Nausea and vomiting; 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: [Nausea with vomiting, unspecified] Onset: 05-10-2020 05-10-2020 Episodic Other aftercare (1 source) 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; 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: [PROJECT LEADER CURRENT USE OF ASPIRIN] Onset: 06-20-2022 Episodic Other circulatory disease (4 sources) Other specified symptoms and signs involving the circulatory and respiratory systems; 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: [OTH SPEC SX SIGNS INVLV CIRC RS] Onset: 08-28-2022 Episodic Other diseases of kidney and ureters (1 source) Other obstructive and reflux uropathy; 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: [OTHER OBSTRUCTIVE AND REFLUX UROPATHY] Onset: 09-16-2022 Episodic Other diseases of kidney and ureters (4 sources) Other hydronephrosis; 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: [OTHER HYDRONEPHROSIS] Onset: 07-03-2022 Episodic Other diseases of kidney and ureters (1 source) Hydronephrosis with renal and ureteral calculous obstruction; 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: [HYDRONPHROS RENL AND URETRL CALCUL OBST] Onset: 05-19-2022 Episodic Other liver diseases (20 sources) Hepatic encephalopathy; 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: [Hepatic failure, unspecified without coma] Onset: 10-19-2018 10-19-2018 Episodic Other liver diseases (20 sources) Hepatic failure; 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: [Hepatic failure, unspecified without coma] Onset: 04-09-2020 04-09-2020 Episodic Residual codes; unclassified (1 source) Ill-defined and unknown cause of mortality; 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: [ILL-DEFINED UNKNOWN CAUSE MORTALITY] Onset: 06-10-2022 Episodic Screening and history of mental health and substance abuse codes (1 source) Personal history of nicotine dependence; 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: [PERSONAL HISTORY OF NICOTINE DEPEND] Onset: 05-19-2022 Episodic Results Test Name Value Interpretation Reference Range Facility CHEM 7 (LYTES,BUN,CREA,GLUC) on 09-11-2023 Anion gap [Moles/Vol] 13 mmol/L Normal 7-17 [facility] Comment on above: Performed By: #### C HM7, MGO ####[facility] (DEFAULT)[address] [place] [address] Chloride [Moles/Vol] 111 mmol/L High 98-108 [facility] Comment on above: Performed By: #### C HM7, MGO ####[facility] (DEFAULT)[address] [facility] [place] [address] CO2 [Moles/Vol] 20 mmol/L Low 21-31 [facility] Comment on above: Performed By: #### C HM7, MGO ####[facility] (DEFAULT)[address] [facility] [place] [address] Creatinine [Mass/Vol] 1.13 mg/dL Normal 0.70-1.30 [facility] Comment on above: Performed By: #### C HM7, MGO ####[facility] (DEFAULT)[address] [place] [address], [place] [address] GFR/1.73 sq M.predicted among non-blacks MDRD (S/P/Bld) [Vol rate/Area] 78 mL/min/{1.73_m2} Normal >=60 [facility] Comment on above: Result Comment: Repo rted eGFR is based on the CKD-EPI 2020 equation using creatinine, age, and sex. Performed By: #### C HM7, MGO ####[facility] (DEFAULT)[address] [place] [address] Glucose [Mass/Vol] 109 mg/dL High 70-99 [facility] Comment on above: Performed By: #### C HM7, MGO ####[facility] (DEFAULT)[address] [place] [address] Osmolality [Osmolality] 295 mosm/kg Normal 278-305 [facility] Comment on above: Performed By: #### C HM7, MGO ####[facility] (DEFAULT)[address] [place] [address] Potassium [Moles/Vol] 4.3 mmol/L [facility] 3.5-[facility] Comment on above: Performed By: #### C HM7, MGO ####[facility] (DEFAULT)[address] [place] [address] Sodium [Moles/Vol] 140 mmol/L Normal 135-145 [facility] Comment on above: Performed By: #### Chinedu HM7, MGO ####[facility] (DEFAULT)[address] [facility] [place] [address] Urea nitrogen [Mass/Vol] 16 mg/dL Normal 7-25 [facility] Comment on above: Performed By: #### Chinedu HM7, MGO ####[facility] (DEFAULT)[address] [place] [address] Urea nitrogen/Creatinine [Mass ratio] 14 mg/mg Normal [facility] Comment on above: Performed By: #### Chinedu HM7, MGO ####[facility] (DEFAULT)[address] [facility] [place] [address] Anion gap [Moles/Vol] 13 mmol/L 7 - 17 mmol/L [facility] Chloride [Moles/Vol] 111 mmol/L High 98 - 10 8 mmol/L [facility] CO2 [Moles/Vol] 20 mmol/L Low 21 - 31 mmol/L [facility] Creatinine [Mass/Vol] 1.13 mg/dL 0.70 - 1.30 mg/dL [facility] eGFR, CKD-EPI, [facility] Glucose [Mass/Vol] 109 mg/dL High 70 - 99 mg/dL [facility] Interpretation and review of laboratory results Abnormal [facility] Osmolality Calc [Osmolality] 295 [facility] Potassium [Moles/Vol] 4.3 mmol/L 3.5 - 5.0 mmol/L [facility] Sodium [Moles/Vol] 140 mmol/L 135 - 145 mmol/L [facility] Urea nitrogen [Mass/Vol] 16 mg/dL 7 - 25 mg/dL [facility] Urea nitrogen/Creatinine [Mass ratio] 14 mg/mg [facility] GLUCOSE POCon 09-11-2023 Glucose [Mass/Vol] 108 mg/dL High 70 - 99 mg/dL [facility] Interpretation and review of laboratory results Abnormal [facility] POC Sample Type CAPBL [facility] Legionella sp identified Org specific cx Nom (Unsp spec)on 09-11-2023 Bacteria identified Cx Nom (Unsp spec) NO GROWTH DAY 7 OF 7 [facility] MAGNESIUMon 09-11-2023 Magnesium [Mass/Vol] 1.6 mg/dL Normal 1.6-2.6 [facility] Comment on above: Performed By: #### C 7, MGO ####[facility] (DEFAULT)[address] [place] [address] Interpretation and review of laboratory results Normal [facility] Magnesium [Mass/Vol] 1.6 mg/dL 1.6 - 2 .6 mg/dL [facility] No Panel Informationon 09-11 [facility] TACROLIMUS LEVEL, TROUGH ([place] E DRUG LEVEL)on 09-11-2023 Interpretation and review of laboratory results Normal [facility] Tacrolimus (Bld) [Mass/Vol] 11.5 ng/mL [facility] Tacrolimus, Trough 11.5 ng/mL Normal [facility] Transplant: 4.0-12.0, Therapeutic: 5.0-15.0 [facility] Comment on above: Order Comment: Pleas e draw at specified interval PRIOR to dose. Do not hold dose to wait for level. Specimens batched twice per day, (M-F) and once per day weekendsMethod performed is a chemiluminescent microparticle immunoasssay on the [employer] i2000.The range is based on experience at [facility] and users should be aware that target concentrations vary widely depending on concomitant therapy, time post-transplant, and desired degree of immunosuppression. Performed By: #### T ACRO ####[facility] (DEFAULT)[address] [place] [address] CBC,PLATELETSon 09-10-2023 Hematocrit (Bld) [Volume fraction] 40.0 % Normal 39.6-48.8 [facility] Comment on above: Performed By: #### H EMOGC ####[facility] (DEFAULT)[address] [place] [address] Hemoglobin (Bld) [Mass/Vol] 12.7 g/dL Low 13.4-16.8 [facility] Comment on above: Performed By: #### H EMOGC ####[facility] (DEFAULT)[address] [place] [address] MCV (RBC) [Entitic vol] 86.0 fL Normal 79.0-94.5 [facility] Comment on above: Performed By: #### H EMOGC ####[facility] (DEFAULT)[address] [place] [address] Mean Cell Hgb 27.3 pg Normal 26.1-33.3 [facility] Comment on above: Performed By: #### H EMOGC ####[facility] (DEFAULT)[address] [place] [address] Mean Cell Hgb Conc 31.8 g/dL Low 31.9-36.5 [facility] Comment on above: Performed By: #### H EMOGC ####[facility] (DEFAULT)[address] [place] [address] Platelet mean volume (Bld) [Entitic vol] 9.5 fL Normal 8.7-12.3 [facility] Comment on above: Performed By: #### H EMO ####[facility] (DEFAULT)[address] [place] [address] Platelets (Bld) [#/Vol] 225 10*3/uL Normal 146-337 [facility] Comment on above: Performed By: #### H EMO ####[facility] (DEFAULT)[address] [facility] [place] [address] RBC (Bld) [#/Vol] 4.65 10*6/uL Normal 4.38-5.83 [facility] Comment on above: Performed By: #### H EMO ####[facility] (DEFAULT)[address] [place] [address] RBC Distribution 13.9 % Normal 10.9-14.3 [facility] Comment on above: Performed By: #### H EMO ####[facility] (DEFAULT)[address] [facility] [place] [address] WBC (Bld) [#/Vol] 6.52 10*3/uL Normal 3.73-10.10 [facility] Comment on above: Performed By: #### H EMO ####[facility] (DEFAULT)[address] [facility] [place] [address] Erythrocyte distribution width (RBC) [Ratio] 13.9 % 10.9 - 14.3 % [facility] Hematocrit (Bld) [Volume fraction] 40.0 % 39.6 - 48.8 % [facility] Hemoglobin (Bld) [Mass/Vol] 12.7 g/dL Low 13.4 - 16.8 g/dL [facility] Interpretation and review of laboratory results Abnormal [facility] MCH (RBC) [Entitic mass] 27.3 pg 26.1 - 33.3 pg [facility] MCHC (RBC) [Mass/Vol] 31.8 g/dL Low 31.9 - 36.5 g/dL [facility] MCV (RBC) [Entitic vol] 86.0 fL 79.0 - 94.5 fL [facility] Platelet mean volume (Bld) [Entitic vol] 9.5 fL 8.7 - 12.3 fL [facility] Platelets (Bld) [#/Vol] 225 10*3/uL 146 - 337 K/uL [facility] RBC (Bld) [#/Vol] 4.65 10*6/uL [facility] WBC (Bld) [#/Vol] 6.52 10*3/uL 3.73 - 10. 10 K/uL [facility] CHEM 7 (LYTES,BUN,CREA,GLUC) on 09-10-2023 Anion gap [Moles/Vol] 13 mmol/L Normal 7-17 [facility] Comment on above: Performed By: #### T ACRO #### [facility] (DEFAULT) [address] [address] Chloride [Moles/Vol] 111 mmol/L High 98-108 [facility] Comment on above: Performed By: #### T ACRO #### [facility] (DEFAULT) [address] [address] CO2 [Moles/Vol] 20 mmol/L Low 21-31 [facility] Comment on above: Performed By: #### T ACRO #### [facility] (DEFAULT) [address] [address] Creatinine [Mass/Vol] 1.27 mg/dL Normal 0.70-1.30 [facility] Comment on above: Performed By: #### T ACRO #### [facility] (DEFAULT) [address] [address] GFR/1.73 sq M.predicted among non-blacks MDRD (S/P/Bld) [Vol rate/Area] 68 mL/min/{1.73_m2} Normal >=60 [facility] Comment on above: Result Comment: Repo rted eGFR is based on the CKD-EPI 2020 equation using creatinine, age, and sex. Performed By: #### T ACRO #### [facility] (DEFAULT) [address] [place] [address] Glucose [Mass/Vol] 100 mg/dL High 70-99 [facility] Comment on above: Performed By: #### T ACRO #### [facility] (DEFAULT) [address] [place] [address] Osmolality [Osmolality] 293 mosm/kg Normal 278-305 [facility] Comment on above: Performed By: #### T ACRO #### [facility] (DEFAULT) [address] [place] [address] Potassium [Moles/Vol] 4.4 mmol/L Normal 3.5-5.0 [facility] Comment on above: Performed By: #### T ACRO #### [facility] (DEFAULT) [address] [place] [address] Sodium [Moles/Vol] 140 mmol/L Normal 135-145 [facility] Comment on above: Performed By: #### T ACRO #### [facility] (DEFAULT) [address] [place] [address] Urea nitrogen [Mass/Vol] 12 mg/dL Normal 7-25 [facility] Comment on above: Performed By: #### T ACRO #### [facility] (DEFAULT) [address] [place] [address] Urea nitrogen/Creatinine [Mass ratio] 9 mg/mg Normal [facility] Comment on above: Performed By: #### T ACRO #### [facility] (DEFAULT) [address] [place] [address] Anion gap [Moles/Vol] 13 mmol/L 7 - 17 mmol/L [facility] Chloride [Moles/Vol] 111 mmol/L High 98 - 10 8 mmol/L [facility] CO2 [Moles/Vol] 20 mmol/L Low 21 - 31 mmol/L [facility] Creatinine [Mass/Vol] 1.27 mg/dL 0.70 - 1.30 mg/dL [facility] eGFR, CKD-EPI, Male 68 - PINF [facility] Glucose [Mass/Vol] 100 mg/dL High 70 - 99 mg/dL [facility] Osmolality Calc [Osmolality] 293 [facility] Potassium [Moles/Vol] 4.4 mmol/L 3.5 - 5.0 mmol/L [facility] Sodium [Moles/Vol] 140 mmol/L 135 - 145 mmol/L [facility] Urea nitrogen [Mass/Vol] 12 mg/dL 7 - 25 mg/dL [facility] Urea nitrogen/Creatinine [Mass ratio] 9 mg/mg [facility] HEPATIC FUNCTION PANELon Albumin [Mass/Vol] 3.3 g/dL Low 3.5-5.0 [facility] Comment on above: Performed By: #### T ACRO #### [facility] (DEFAULT) [address] [place] [address] ALP [Catalytic activity/Vol] 143 U/L High 32-126 [facility] Comment on above: Performed By: #### T ACRO #### [facility] (DEFAULT) [address] [place] [address] ALT [Catalytic activity/Vol] 28 U/L Normal 10-52 [facility] Comment on above: Performed By: #### T ACRO #### [facility] (DEFAULT) [address] [place] [address] AST [Catalytic activity/Vol] 29 U/L Normal 10-39 [facility] Comment on above: Performed By: #### T ACRO #### [facility] (DEFAULT) [address] [place] [address] Bilirubin [Mass/Vol] 0.9 mg/dL Normal <1.5 [facility] Comment on above: Performed By: #### T ACRO #### [facility] (DEFAULT) [address] [place] [address] Bilirubin.indirect [Mass/Vol] 0.2 mg/dL Normal <0.3 [facility] Comment on above: Performed By: #### T ACRO #### [facility] (DEFAULT) [address] [place] [address] Protein [Mass/Vol] 6.8 g/dL Normal 6.4-8.3 [facility] Comment on above: Performed By: #### T ACRO #### [facility] (DEFAULT) [address] [place] [address] Albumin [Mass/Vol] 3.3 g/dL Low 3.5 - 5.0 g/dL [facility] ALP [Catalytic activity/Vol] 143 U/L High 32 - 126 U/L [facility] ALT [Catalytic activity/Vol] 28 U/L 10 - 52 U/L [facility] AST [Catalytic activity/Vol] 29 U/L 10 - 39 U/L [facility] Bilirubin [Mass/Vol] 0.9 mg/dL [facility] mg/dL [facility] Bilirubin.direct [Mass/Vol] 0.2 mg/dL NINF - 0.3 mg/dL [facility] Protein [Mass/Vol] 6.8 g/dL 6.4 - 8.3 g/dL [facility] MAGNESIUMon 09-10-2023 Magnesium [Mass/Vol] 1.9 mg/dL Normal 1.6-2.6 [facility] Comment on above: Performed By: #### T ACRO #### [facility] (DEFAULT) [address] [place] [address] Interpretation and review of laboratory results Normal [facility] Magnesium [Mass/Vol] 1.9 mg/dL 1.6 - 2 .6 mg/dL [facility] No Panel Informationon 09-10 Interpretation and review of laboratory results Abnormal [facility] TACROLIMUS LEVEL, TROUGH ([place] E DRUG LEVEL)Ordered By: Jimy Castillo on 09-10-2023 Interpretation and review of laboratory results Normal [facility] Tacrolimus (Bld) [Mass/Vol] 11.8 ng/mL [facility] TACROLIMUS LEVEL, TROUGH ([place] E DRUG LEVEL)on 09-10-2023 Tacrolimus, Trough 11.8 ng/mL Normal [facility] Transplant: 4.0-12.0, Therapeutic: 5.0-15.0 [facility] Comment on above: Order Comment: Pleas e draw at specified interval PRIOR to dose. Do not hold dose to wait for level. Specimens batched twice per day, (M-) and once per day weekends Method performed is a chemiluminescent microparticle immunoasssay on the [employer] i2000. The range is based on experience at [facility] and users should be aware that target concentrations vary widely depending on concomitant therapy, time post-transplant, and desired degree of immunosuppression. Performed By: #### T ACRO #### [facility] (DEFAULT) [address] [place] [address] CHEM 7 (LYTES,BUN,CREA,GLUC) on 09-09-2023 Anion gap [Moles/Vol] 14 mmol/L Normal 7-17 [facility] Comment on above: Performed By: #### C HM7, IPB, MGO ####[facility] (DEFAULT)[address] [place] [address] Chloride [Moles/Vol] 113 mmol/L High 98-108 [facility] Comment on above: Performed By: #### C HM7, IPB, MGO ####[facility] (DEFAULT)[address] [place] [address] CO2 [Moles/Vol] 18 mmol/L Low 21-31 [facility] Comment on above: Performed By: #### C HM7, IPB, MGO ####[facility] (DEFAULT)[address] [place] [address] Creatinine [Mass/Vol] 1.03 mg/dL Normal 0.70-1.30 [facility] Comment on above: Performed By: #### JO ANN GONG, MGO ####[facility] (DEFAULT)[address] [place] [address] GFR/1.73 sq M.predicted among non-blacks MDRD (S/P/Bld) [Vol rate/Area] 87 mL/min/{1.73_m2} Normal >=60 [facility] Comment on above: Result Comment: Repo rted eGFR is based on the CKD-EPI 2020 equation using creatinine, age, and sex. Performed By: #### JO ANN GONG, MGO ####[facility] (DEFAULT)[address] [facility] [place] [address] Glucose [Mass/Vol] 106 mg/dL High 70-99 [facility] Comment on above: Performed By: #### JO ANN GONG, MGO ####[facility] (DEFAULT)[address] [facility] [place] [address] Osmolality [Osmolality] 294 mosm/kg Normal 278-305 [facility] Comment on above: Performed By: #### JO ANN GONG, MGO ####[facility] (DEFAULT)[address] [facility] [place] [address] Potassium [Moles/Vol] 4.0 mmol/L Normal 3.5-5.0 [facility] Comment on above: Performed By: #### JO ANN GONG, MGO ####[facility] (DEFAULT)[address] [place] [address] Sodium [Moles/Vol] 141 mmol/L Normal 135-145 [facility] Comment on above: Performed By: #### JO ANN GONG, MGO ####[facility] (DEFAULT)[address] [place] [address] Urea nitrogen [Mass/Vol] 10 mg/dL Normal 7-25 [facility] Comment on above: Performed By: #### JO ANN GONG MGO ####[facility] (DEFAULT)[address] [place] [address] Urea nitrogen/Creatinine [Mass ratio] 10 mg/mg Normal [facility] Comment on above: Performed By: #### JO ANN GOGN MGO ####[facility] (DEFAULT)[address] [place] [address] Anion gap [Moles/Vol] 14 mmol/L 7 - 17 mmol/L [facility] Chloride [Moles/Vol] 113 mmol/L High 98 - 10 8 mmol/L [facility] CO2 [Moles/Vol] 18 mmol/L Low 21 - 31 mmol/L [facility] Creatinine [Mass/Vol] 1.03 mg/dL 0.70 - 1.30 mg/dL [facility] eGFR, CKD-EPI, Male 87 - PINF [facility] Glucose [Mass/Vol] 106 mg/dL High 70 - 99 mg/dL [facility] Interpretation and review of laboratory results Abnormal [facility] Osmolality Calc [Osmolality] 294 [facility] Potassium [Moles/Vol] 4.0 mmol/L 3.5 - 5.0 mmol/L [facility] Sodium [Moles/Vol] 141 mmol/L 135 - 145 mmol/L [facility] Urea nitrogen [Mass/Vol] 10 mg/dL 7 - 25 mg/dL [facility] Urea nitrogen/Creatinine [Mass ratio] 10 mg/mg [facility] MAGNESIUMon 09-09-2023 Magnesium [Mass/Vol] 1.6 mg/dL Normal 1.6-2.6 [facility] Comment on above: Performed By: #### JO ANN GONG, MGO ####[facility] (DEFAULT)[address] [place] [address] Magnesium [Mass/Vol] 1.6 mg/dL 1.6 - 2 .6 mg/dL [facility] No Panel Informationon 09-09 Interpretation and review of laboratory results Normal [facility] PHOSPHATE, INORGANICon 09-09 Phosphorous 3.8 mg/dL Normal 2.2-4.6 [facility] Comment on above: Performed By: #### C HM7, IPB, MGO ####[facility] (DEFAULT)[address] [place] [address] Phosphate [Mass/Vol] 3.8 mg/dL 2.2 - 4 .6 mg/dL [facility] TACROLIMUS LEVEL, TROUGH ([place] E DRUG LEVEL)on 09-09-2023 Interpretation and review of laboratory results Normal [facility] Tacrolimus (Bld) [Mass/Vol] 9.2 ng/mL [facility] Tacrolimus, Trough 9.2 ng/mL Normal [facility]ana ow Transplant: 4.0-12.0, Therapeutic: 5.0-15.0 [facility] Comment on above: Order Comment: Pleas e draw at specified interval PRIOR to dose. Do not hold dose to wait for level. Specimens batched twice per day, (M-F) and once per day weekendsMethod performed is a chemiluminescent microparticle immunoasssay on the [employer] i2000.The range is based on experience at [facility] and users should be aware that target concentrations vary widely depending on concomitant therapy, time post-transplant, and desired degree of immunosuppression. Performed By: #### H EMO #### [facility] (DEFAULT) [address] [place] [address] CBC,PLATELETSon 09-08-2023 Hematocrit (Bld) [Volume fraction] 36.1 % Low 39.6-48.8 [facility] Comment on above: Performed By: #### T ACRO #### [facility] (DEFAULT) [address] [place] [address] Hemoglobin (Bld) [Mass/Vol] 11.6 g/dL Low 13.4-16.8 [facility] Comment on above: Performed By: #### T ACRO #### [facility] (DEFAULT) [address] [place] [address] MCV (RBC) [Entitic vol] 85.1 fL Normal 79.0-94.5 [facility] Comment on above: Performed By: #### T ACRO #### [facility] (DEFAULT) [address] [address] Mean Cell Hgb 27.4 pg Normal 26.1-33.3 [facility] Comment on above: Performed By: #### T ACRO #### [facility] (DEFAULT) [address] [address] Mean Cell Hgb Conc 32.1 g/dL Normal 31.9-36.5 [facility] Comment on above: Performed By: #### T ACRO #### [facility] (DEFAULT) [address] [address] Platelet mean volume (Bld) [Entitic vol] 9.5 fL Normal 8.7-12.3 [facility] Comment on above: Performed By: #### T ACRO #### [facility] (DEFAULT) [address] [address] Platelets (Bld) [#/Vol] 182 10*3/uL Normal 146-337 [facility] Comment on above: Performed By: #### T ACRO #### [facility] (DEFAULT) [address] [address] RBC (Bld) [#/Vol] 4.24 10*6/uL Low 4.38-5.83 [facility] Comment on above: Performed By: #### T ACRO #### [facility] (DEFAULT) [address] [address] RBC Distribution 13.6 % Normal 10.9-14.3 [facility] Comment on above: Performed By: #### T ACRO #### [facility] (DEFAULT) [address] [place] [address] WBC (Bld) [#/Vol] 4.59 10*3/uL Normal 3.73-10.10 [facility] Comment on above: Performed By: #### T ACRO #### [facility] (DEFAULT) [address] [place] [address] Erythrocyte distribution width (RBC) [Ratio] 13.6 % 10.9 - 14.3 % [facility] Hematocrit (Bld) [Volume fraction] 36.1 % Low 39.6 - 48.8 % [facility] Hemoglobin (Bld) [Mass/Vol] 11.6 g/dL Low 13.4 - 16.8 g/dL [facility] Interpretation and review of laboratory results Abnormal [facility] MCH (RBC) [Entitic mass] 27.4 pg 26.1 - 33.3 pg [facility] MCHC (RBC) [Mass/Vol] 32.1 g/dL 31.9 - 36.5 g/dL [facility] MCV (RBC) [Entitic vol] 85.1 fL 79.0 - 94.5 fL [facility] Platelet mean volume (Bld) [Entitic vol] 9.5 fL 8.7 - 12.3 fL [facility] Platelets (Bld) [#/Vol] 182 10*3/uL 146 - 337 K/uL [facility] RBC (Bld) [#/Vol] 4.24 10*6/uL Low [facility] WBC (Bld) [#/Vol] 4.59 10*3/uL 3.73 - 10. 10 K/uL [facility] CHEM 7 (LYTES,BUN,CREA,GLUC) on 09-08-2023 Anion gap [Moles/Vol] 12 mmol/L Normal 7-17 [facility] Comment on above: Performed By: #### H EMOGC #### [facility] (DEFAULT) [address] [place] [address] Chloride [Moles/Vol] 113 mmol/L High 98-108 [facility] Comment on above: Performed By: #### H EMO #### [facility] (DEFAULT) [address] [address] CO2 [Moles/Vol] 21 mmol/L Normal 21-31 [facility] Comment on above: Performed By: #### H EMO #### [facility] (DEFAULT) [address] [address] Creatinine [Mass/Vol] 1.14 mg/dL Normal 0.70-1.30 [facility] Comment on above: Performed By: #### H [facility] #### [facility] (DEFAULT) [address] [address] GFR/1.73 sq M.predicted among non-blacks MDRD (S/P/Bld) [Vol rate/Area] 77 mL/min/{1.73_m2} Normal >=60 [facility] Comment on above: Result Comment: Repo rted eGFR is based on the CKD-EPI 2020 equation using creatinine, age, and sex. Performed By: #### H EMO #### [facility] (DEFAULT) [address] [address] Glucose [Mass/Vol] 107 mg/dL High 70-99 [facility] Comment on above: Performed By: #### H EMO #### [facility] (DEFAULT) [address] [address] Osmolality [Osmolality] 296 mosm/kg Normal 278-305 [facility] Comment on above: Performed By: #### H EMO #### [facility] (DEFAULT) [address] [address] Potassium [Moles/Vol] 3.9 mmol/L Normal 3.5-5.0 [facility] Comment on above: Performed By: #### H EMOGC #### [facility] (DEFAULT) [address] [address] Sodium [Moles/Vol] 142 mmol/L Normal 135-145 [facility] Comment on above: Performed By: #### [facility] #### [facility] (DEFAULT) [address] [place] [address] Urea nitrogen [Mass/Vol] 11 mg/dL Normal 7-25 [facility] Comment on above: Performed By: #### H EMO #### [facility] (DEFAULT) [address] [place] [address] Urea nitrogen/Creatinine [Mass ratio] 10 mg/mg Normal [facility] Comment on above: Performed By: #### [facility] #### [facility] (DEFAULT) [address] [place] [address] Anion gap [Moles/Vol] 12 mmol/L 7 - 17 mmol/L [facility] Chloride [Moles/Vol] 113 mmol/L High 98 - 10 8 mmol/L [facility] CO2 [Moles/Vol] 21 mmol/L 21 - 31 mmol/L [facility] Creatinine [Mass/Vol] 1.14 mg/dL 0.70 - 1.30 mg/dL [facility] eGFR, CKD-EPI, Male 77 - PINF [facility] Glucose [Mass/Vol] 107 mg/dL High 70 - 99 mg/dL [facility] Osmolality Calc [Osmolality] 296 [facility] Potassium [Moles/Vol] 3.9 mmol/L 3.5 - 5.0 mmol/L [facility] Sodium [Moles/Vol] 142 mmol/L 135 - 145 mmol/L [facility] Urea nitrogen [Mass/Vol] 11 mg/dL 7 - 25 mg/dL [facility] Urea nitrogen/Creatinine [Mass ratio] 10 mg/mg [facility] HEPATIC FUNCTION PANELon Albumin [Mass/Vol] 2.9 g/dL Low 3.5-5.0 [facility] Comment on above: Performed By: #### [facility] #### [facility] (DEFAULT) [address] [place] [address] ALP [Catalytic activity/Vol] 133 U/L High 32-126 [facility] Comment on above: Performed By: #### H EMO #### [facility] (DEFAULT) [address] [place] [address] ALT [Catalytic activity/Vol] 23 U/L Normal 10-52 [facility] Comment on above: Performed By: #### H EMO #### [facility] (DEFAULT) [address] [place] [address] AST [Catalytic activity/Vol] 23 U/L Normal 10-39 [facility] Comment on above: Performed By: #### H EMO #### [facility] (DEFAULT) [address] [place] [address] Bilirubin [Mass/Vol] 0.8 mg/dL Normal <1.5 [facility] Comment on above: Performed By: #### H EMO #### [facility] (DEFAULT) [address] [place] [address] Bilirubin.indirect [Mass/Vol] 0.2 mg/dL Normal <0.3 [facility] Comment on above: Performed By: #### H EMO #### [facility] (DEFAULT) [address] [place] [address] Protein [Mass/Vol] 5.9 g/dL Low 6.4-8.3 [facility] Comment on above: Performed By: #### H EMO #### [facility] (DEFAULT) [address] [place] [address] Albumin [Mass/Vol] 2.9 g/dL Low 3.5 - 5.0 g/dL [facility] ALP [Catalytic activity/Vol] 133 U/L High 32 - 126 U/L [facility] ALT [Catalytic activity/Vol] 23 U/L 10 - 52 U/L [facility] AST [Catalytic activity/Vol] 23 U/L 10 - 39 U/L [facility] Bilirubin [Mass/Vol] 0.8 mg/dL NINF - 1.5 mg/dL [facility] Bilirubin.direct [Mass/Vol] 0.2 mg/dL NINF - 0.3 mg/dL [facility] Protein [Mass/Vol] 5.9 g/dL Low 6.4 - 8.3 g/dL [facility] MAGNESIUMon 09-08-2023 Magnesium [Mass/Vol] 1.8 mg/dL Normal 1.6-2.6 [facility] Comment on above: Performed By: #### [facility] #### [facility] (DEFAULT) [address] [place] [address] Interpretation and review of laboratory results Normal [facility] Magnesium [Mass/Vol] 1.8 mg/dL 1.6 - 2 .6 mg/dL [facility] No Panel Informationon 09-08 Interpretation and review of laboratory results Abnormal [facility] PHOSPHATE, INORGANICon 09-08 Interpretation and review of laboratory results Normal [facility] Phosphate [Mass/Vol] 4.1 mg/dL 2.2 - 4 .6 mg/dL [facility] Phosphorous 4.1 mg/dL Normal 2.2-4.6 [facility] Comment on above: Performed By: #### H [facility] #### [facility] (DEFAULT) [address] [place] [address] TACROLIMUS LEVEL, TROUGH ([place] E DRUG LEVEL)on 09-08-2023 Interpretation and review of laboratory results Normal [facility] Tacrolimus (Bld) [Mass/Vol] 8.5 ng/mL [facility] Tacrolimus, Trough 8.5 ng/mL Normal Bone Susana ow Transplant: 4.0-12.0, Therapeutic: 5.0-15.0 [facility] Comment on above: Order Comment: Pleas e draw at specified interval PRIOR to dose. Do not hold dose to wait for level. Specimens batched twice per day, (M-F) and once per day weekendsMethod performed is a chemiluminescent microparticle immunoasssay on the [employer] i2000.The range is based on experience at [facility] and users should be aware that target concentrations vary widely depending on concomitant therapy, time post-transplant, and desired degree of immunosuppression. Performed By: #### N ONGNNONFNA #### [facility] (DEFAULT) [address] [address] CBC,PLATELETSon 09-07-2023 Hematocrit (Bld) [Volume fraction] 37.1 % Low 39.6-48.8 [facility] Comment on above: Performed By: #### [place] #### [facility] (DEFAULT) [address] [address] Hemoglobin (Bld) [Mass/Vol] 11.9 g/dL Low 13.4-16.8 [facility] Comment on above: Performed By: #### [place] #### [facility] (DEFAULT) [address] [address] MCV (RBC) [Entitic vol] 86.5 fL Normal 79.0-94.5 [facility] Comment on above: Performed By: #### [place] #### [facility] (DEFAULT) [address] [address] Mean Cell Hgb 27.7 pg Normal 26.1-33.3 [facility] Comment on above: Performed By: #### [place] #### [facility] (DEFAULT) [address] [address] Mean Cell Hgb Conc 32.1 g/dL Normal 31.9-36.5 [facility] Comment on above: Performed By: #### Vale UNDERWOOD #### [facility] (DEFAULT) [address] [address] Platelet mean volume (Bld) [Entitic vol] 9.6 fL Normal 8.7-12.3 [facility] Comment on above: Performed By: #### G YASMINE #### [facility] (DEFAULT) [address] [place] [address] Platelets (Bld) [#/Vol] 176 10*3/uL Normal 146-337 [facility] Comment on above: Performed By: #### Vale UNDERWOOD #### [facility] (DEFAULT) [address] [place] [address] RBC (Bld) [#/Vol] 4.29 10*6/uL Low 4.38-5.83 [facility] Comment on above: Performed By: #### Vale UNDERWOOD #### [facility] (DEFAULT) [address] [place] [address] 92468 RBC Distribution 13.5 % Normal 10.9-14.3 [facility] Comment on above: Performed By: #### Vale UNDERWOOD #### [facility] (DEFAULT) [address] [place] [address]60 WBC (Bld) [#/Vol] 4.10 10*3/uL Normal 3.73-10.10 [facility] Comment on above: Performed By: #### Vale UNDERWOOD #### [facility] (DEFAULT) [address] [place] [address]993 Erythrocyte distribution width (RBC) [Ratio] 13.5 % 10.9 - 14.3 % [facility] Hematocrit (Bld) [Volume fraction] 37.1 % Low 39.6 - 48.8 % [facility] Hemoglobin (Bld) [Mass/Vol] 11.9 g/dL Low 13.4 - 16.8 g/dL [facility] Interpretation and review of laboratory results Abnormal [facility] MCH (RBC) [Entitic mass] 27.7 pg 26.1 - 33.3 pg [facility] MCHC (RBC) [Mass/Vol] 32.1 g/dL 31.9 - 36.5 g/dL [facility] MCV (RBC) [Entitic vol] 86.5 fL 79.0 - 94.5 fL [facility] Platelet mean volume (Bld) [Entitic vol] 9.6 fL 8.7 - 12.3 fL [facility] Platelets (Bld) [#/Vol] 176 10*3/uL 146 - 337 K/uL [facility] RBC (Bld) [#/Vol] 4.29 10*6/uL Low [facility] WBC (Bld) [#/Vol] 4.10 10*3/uL 3.73 - 10. 10 K/uL [facility] CHEM 7 (LYTES,BUN,CREA,GLUC) on 09-07-2023 Anion gap [Moles/Vol] 13 mmol/L Normal 7-17 [facility] Comment on above: Performed By: #### Y PNRP #### [facility] (DEFAULT) [address] [place] [address] 31456 Chloride [Moles/Vol] 113 mmol/L High 98-108 [facility] Comment on above: Performed By: #### Y PNRP #### [facility] (DEFAULT) [address] [place] [address] 9[address]68 CO2 [Moles/Vol] 19 mmol/L Low 21-31 [facility] Comment on above: Performed By: #### Y PNRP #### [facility] (DEFAULT) [address] [place] [address] 79677 Creatinine [Mass/Vol] 1.22 mg/dL Normal 0.70-1.30 [facility] Comment on above: Performed By: #### Y PNRP #### [facility] (DEFAULT) [address] [place] [address] 12331 GFR/1.73 sq M.predicted among non-blacks MDRD (S/P/Bld) [Vol rate/Area] 71 mL/min/{1.73_m2} Normal >=60 [facility] Comment on above: Result Comment: Repo rted eGFR is based on the CKD-EPI 2020 equation using creatinine, age, and sex. Performed By: #### Y PNRP #### [facility] (DEFAULT) [address] [place] [address] Glucose [Mass/Vol] 107 mg/dL High 70-99 [facility] Comment on above: Performed By: #### Y PNRP #### [facility] (DEFAULT) [address] [place] [address] Osmolality [Osmolality] 295 mosm/kg Normal 278-305 [facility] Comment on above: Performed By: #### Y PNRP #### [facility] (DEFAULT) [address] [place] [address] Potassium [Moles/Vol] 3.9 mmol/L Normal 3.5-5.0 [facility] Comment on above: Performed By: #### Y PNRP #### [facility] (DEFAULT) [address] [place] [address] 75363 Sodium [Moles/Vol] 141 mmol/L Normal 135-145 [facility] Comment on above: Performed By: #### Y PNRP #### [facility] (DEFAULT) [address] [place] [address] 19276 Urea nitrogen [Mass/Vol] 13 mg/dL Normal 7-25 [facility] Comment on above: Performed By: #### Y PNRP #### [facility] (DEFAULT) [address] [place] [address]326 Urea nitrogen/Creatinine [Mass ratio] 11 mg/mg Normal [facility] Comment on above: Performed By: #### Y PNRP #### [facility] (DEFAULT) [address] [place] [address] Anion gap [Moles/Vol] 13 mmol/L 7 - 17 mmol/L [facility] Chloride [Moles/Vol] 113 mmol/L High 98 - 10 8 mmol/L [facility] CO2 [Moles/Vol] 19 mmol/L Low 21 - 31 mmol/L [facility] Creatinine [Mass/Vol] 1.22 mg/dL 0.70 - 1.30 mg/dL [facility] eGFR, CKD-EPI, Male 72 - PINF [facility] Glucose [Mass/Vol] 107 mg/dL High 70 - 99 mg/dL [facility] Osmolality Calc [Osmolality] 295 [facility] Potassium [Moles/Vol] 3.9 mmol/L 3.5 - 5.0 mmol/L [facility] Sodium [Moles/Vol] 141 mmol/L 135 - 145 mmol/L [facility] Urea nitrogen [Mass/Vol] 13 mg/dL 7 - 25 mg/dL [facility] Urea nitrogen/Creatinine [Mass ratio] 11 mg/mg [facility] HEPATIC FUNCTION PANELon Albumin [Mass/Vol] 2.9 g/dL Low 3.5-5.0 [facility] Comment on above: Performed By: #### Y PNRP #### [facility] (DEFAULT) [address] [place] [address]482 ALP [Catalytic activity/Vol] 111 U/L Normal 32-126 [facility] Comment on above: Performed By: #### Y PNRP #### [facility] (DEFAULT) [address] [address] ALT [Catalytic activity/Vol] 18 U/L Normal 10-52 [facility] Comment on above: Performed By: #### Y PNRP #### [facility] (DEFAULT) [address] [place] [address]234 AST [Catalytic activity/Vol] 23 U/L Normal 10-39 [facility] Comment on above: Performed By: #### Y PNRP #### [facility] (DEFAULT) [address] [place] [address]28 Bilirubin [Mass/Vol] 0.8 mg/dL Normal <1.5 [facility] Comment on above: Performed By: #### Y PNRP #### [facility] (DEFAULT) [address] [place] [address] Bilirubin.indirect [Mass/Vol] 0.3 mg/dL High <0.3 [facility] Comment on above: Performed By: #### Y PNRP #### [facility] (DEFAULT) [address] [place] [address] 11834 Protein [Mass/Vol] 6.0 g/dL Low 6.4-8.3 [facility] Comment on above: Performed By: #### Y PNRP #### [facility] (DEFAULT) [address] [place] [address] Albumin [Mass/Vol] 2.9 g/dL Low 3.5 - 5.0 g/dL [facility] ALP [Catalytic activity/Vol] 111 U/L 32 - 126 U/L [facility] ALT [Catalytic activity/Vol] 18 U/L 10 - 52 U/L [facility] AST [Catalytic activity/Vol] 23 U/L 10 - 39 U/L [facility] Bilirubin [Mass/Vol] 0.8 mg/dL NINF - 1.5 mg/dL [facility] Bilirubin.direct [Mass/Vol] 0.3 mg/dL High NINF - 0.3 mg/dL [facility] Protein [Mass/Vol] 6.0 g/dL Low 6.4 - 8.3 g/dL [facility] MAGNESIUMon 09-07-2023 Magnesium [Mass/Vol] 1.7 mg/dL Normal 1.6-2.6 [facility] Comment on above: Performed By: #### Y PNRP #### [facility] (DEFAULT) [address] [place] [address] Interpretation and review of laboratory results Normal [facility] Magnesium [Mass/Vol] 1.7 mg/dL 1.6 - 2 .6 mg/dL [facility] No Panel Informationon 09-07 Interpretation and review of laboratory results Abnormal [facility] PHOSPHATE, INORGANICon 09-07 Phosphorous 4.4 mg/dL Normal 2.2-4.6 [facility] Comment on above: Performed By: #### Y PNRP #### [facility] (DEFAULT) [address] [address] Interpretation and review of laboratory results Normal [facility] Phosphate [Mass/Vol] 4.4 mg/dL 2.2 - 4 .6 mg/dL [facility] TACROLIMUS LEVEL, TROUGH ([place] E DRUG LEVEL)Ordered By: Elizabeth Maldonado on 09-07-2023 Interpretation and review of laboratory results Normal [facility] Tacrolimus (Bld) [Mass/Vol] 7.8 ng/mL [facility] TACROLIMUS LEVEL, TROUGH ([place] E DRUG LEVEL)on 09-07-2023 Tacrolimus, Trough 7.8 ng/mL Normal [facility] Susana ow Transplant: 4.0-12.0, Therapeutic: 5.0-15.0 [facility] Comment on above: Order Comment: Pleas e draw at specified interval PRIOR to dose. Do not hold dose to wait for level. Specimens batched twice per day, (M-F) and once per day weekends Method performed is a chemiluminescent microparticle immunoasssay on the [employer] i2000. The range is based on experience at [facility] and users should be aware that target concentrations vary widely depending on concomitant therapy, time post-transplant, and desired degree of immunosuppression. Performed By: #### T ACRO #### [facility] (DEFAULT) [address] [place] [address] CBC,PLATELETSon 09-06-2023 Hematocrit (Bld) [Volume fraction] 38.4 % Low 39.6-48.8 [facility] Comment on above: Performed By: #### Y PNRP #### [facility] (DEFAULT) [address] [address] Hemoglobin (Bld) [Mass/Vol] 11.9 g/dL Low 13.4-16.8 [facility] Comment on above: Performed By: #### Y PNRP #### [facility] (DEFAULT) [address] [address] MCV (RBC) [Entitic vol] 85.9 fL Normal 79.0-94.5 [facility] Comment on above: Performed By: #### Y PNRP #### [facility] (DEFAULT) [address] [place] [address] 164[address] Mean Cell Hgb 26.6 pg Normal 26.1-33.3 [facility] Comment on above: Performed By: #### Y PNRP #### [facility] (DEFAULT) [address] [place] [address] Mean Cell Hgb Conc 31.0 g/dL Low 31.9-36.5 [facility] Comment on above: Performed By: #### Y PNRP #### [facility] (DEFAULT) [address] [place] [address] Platelet mean volume (Bld) [Entitic vol] 9.7 fL Normal 8.7-12.3 [facility] Comment on above: Performed By: #### Y PNRP #### [facility] (DEFAULT) [address] [place] [address] Platelets (Bld) [#/Vol] 181 10*3/uL Normal 146-337 [facility] Comment on above: Performed By: #### Y PNRP #### [facility] (DEFAULT) [address] [place] [address]11 RBC (Bld) [#/Vol] 4.47 10*6/uL Normal 4.38-5.83 [facility] Comment on above: Performed By: #### Y PNRP #### [facility] (DEFAULT) [address] [place] [address]59 RBC Distribution 13.4 % Normal 10.9-14.3 [facility] Comment on above: Performed By: #### Y PNRP #### [facility] (DEFAULT) [address] [place] [address] WBC (Bld) [#/Vol] 4.41 10*3/uL Normal 3.73-10.10 [facility] Comment on above: Performed By: #### Y PNRP #### [facility] (DEFAULT) [address] [place] [address] Erythrocyte distribution width (RBC) [Ratio] 13.4 % 10.9 - 14.3 % [facility] Hematocrit (Bld) [Volume fraction] 38.4 % Low 39.6 - 48.8 % [facility] Hemoglobin (Bld) [Mass/Vol] 11.9 g/dL Low 13.4 - 16.8 g/dL [facility] Interpretation and review of laboratory results Abnormal [facility] MCH (RBC) [Entitic mass] 26.6 pg 26.1 - 33.3 pg [facility] MCHC (RBC) [Mass/Vol] 31.0 g/dL Low 31.9 - 36.5 g/dL [facility] MCV (RBC) [Entitic vol] 85.9 fL 79.0 - 94.5 fL [facility] Platelet mean volume (Bld) [Entitic vol] 9.7 fL 8.7 - 12.3 fL [facility] Platelets (Bld) [#/Vol] 181 10*3/uL 146 - 337 K/uL [facility] RBC (Bld) [#/Vol] 4.47 10*6/uL [facility] WBC (Bld) [#/Vol] 4.41 10*3/uL 3.73 - 10. 10 K/uL [facility] CHEM 7 (LYTES,BUN,CREA,GLUC) on 09-06-2023 Anion gap [Moles/Vol] 14 mmol/L 7 - 17 mmol/L [facility] Chloride [Moles/Vol] 109 mmol/L High 98 - 10 8 mmol/L [facility] CO2 [Moles/Vol] 19 mmol/L Low 21 - 31 mmol/L [facility] Creatinine [Mass/Vol] 1.26 mg/dL 0.70 - 1.30 mg/dL [facility] eGFR, CKD-EPI, Male 70 - PINF [facility] Glucose [Mass/Vol] 114 mg/dL High 70 - 99 mg/dL [facility] Osmolality Calc [Osmolality] 291 [facility] Potassium [Moles/Vol] 4.1 mmol/L 3.5 - 5.0 mmol/L [facility] Sodium [Moles/Vol] 138 mmol/L 135 - 145 mmol/L [facility] Urea nitrogen [Mass/Vol] 16 mg/dL 7 - 25 mg/dL [facility] Urea nitrogen/Creatinine [Mass ratio] 13 mg/mg [facility] Anion gap [Moles/Vol] 14 mmol/L Normal 7-17 [facility] Comment on above: Performed By: #### L EGN #### [facility] (DEFAULT) [address] [place] [address] Chloride [Moles/Vol] 109 mmol/L High 98-108 [facility] Comment on above: Performed By: #### L EGN #### [facility] (DEFAULT) [address] [place] [address] CO2 [Moles/Vol] 19 mmol/L Low 21-31 [facility] Comment on above: Performed By: #### L EGN #### [facility] (DEFAULT) [address] [place] [address]196 Creatinine [Mass/Vol] 1.26 mg/dL Normal 0.70-1.30 [facility] Comment on above: Performed By: #### L EGN #### [facility] (DEFAULT) [address] [place] [address] 35943 GFR/1.73 sq M.predicted among non-blacks MDRD (S/P/Bld) [Vol rate/Area] 69 mL/min/{1.73_m2} Normal >=60 [facility] Comment on above: Result Comment: Repo rted eGFR is based on the CKD-EPI 2020 equation using creatinine, age, and sex. Performed By: #### L EGN #### [facility] (DEFAULT) [address] [place] [address] Glucose [Mass/Vol] 114 mg/dL High 70-99 [facility] Comment on above: Performed By: #### L EGN #### [facility] (DEFAULT) [address] [place] [address] Osmolality [Osmolality] 291 mosm/kg Normal 278-305 [facility] Comment on above: Performed By: #### L EGN #### [facility] (DEFAULT) [address] [place] [address] Potassium [Moles/Vol] 4.1 mmol/L Normal 3.5-5.0 [facility] Comment on above: Performed By: #### L EGN #### [facility] (DEFAULT) [address] [place] [address] 14141 Sodium [Moles/Vol] 138 mmol/L Normal 135-145 [facility] Comment on above: Performed By: #### L EGN #### [facility] (DEFAULT) [address] [place] [address]702 Urea nitrogen [Mass/Vol] 16 mg/dL Normal 7-25 [facility] Comment on above: Performed By: #### L EGN #### [facility] (DEFAULT) [address] [place] [address] 20018 Urea nitrogen/Creatinine [Mass ratio] 13 mg/mg Normal [facility] Comment on above: Performed By: #### L EGN #### [facility] (DEFAULT) [address] [place] [address]75 HEPATIC FUNCTION PANELon Albumin [Mass/Vol] 3.0 g/dL Low 3.5 - 5.0 g/dL [facility] ALP [Catalytic activity/Vol] 115 U/L 32 - 126 U/L [facility] ALT [Catalytic activity/Vol] 25 U/L 10 - 52 U/L [facility] AST [Catalytic activity/Vol] 31 U/L 10 - 39 U/L [facility] Bilirubin [Mass/Vol] 1.0 mg/dL NINF - 1.5 mg/dL [facility] Bilirubin.direct [Mass/Vol] 0.3 mg/dL High NINF - 0.3 mg/dL [facility] Protein [Mass/Vol] 6.3 g/dL Low 6.4 - 8.3 g/dL [facility] Albumin [Mass/Vol] 3.0 g/dL Low 3.5-5.0 [facility] Comment on above: Performed By: #### L EGN #### [facility] (DEFAULT) [address] [place] [address]09 ALP [Catalytic activity/Vol] 115 U/L Normal 32-126 [facility] Comment on above: Performed By: #### L EGN #### [facility] (DEFAULT) [address] [place] [address]140 ALT [Catalytic activity/Vol] 25 U/L Normal 10-52 [facility] Comment on above: Performed By: #### L EGN #### [facility] (DEFAULT) [address] [place] [address] 07368 AST [Catalytic activity/Vol] 31 U/L Normal 10-39 [facility] Comment on above: Performed By: #### L EGN #### [facility] (DEFAULT) [address] [place] [address]34 Bilirubin [Mass/Vol] 1.0 mg/dL Normal <1.5 [facility] Comment on above: Performed By: #### L EGN #### [facility] (DEFAULT) [address] [place] [address] Bilirubin.indirect [Mass/Vol] 0.3 mg/dL High <0.3 [facility] Comment on above: Performed By: #### L EGN #### [facility] (DEFAULT) [address] [place] [address] Protein [Mass/Vol] 6.3 g/dL Low 6.4-8.3 [facility] Comment on above: Performed By: #### L EGN #### [facility] (DEFAULT) [address] [place] [address] MAGNESIUMon 09-06-2023 Interpretation and review of laboratory results Normal [facility] Magnesium [Mass/Vol] 2.0 mg/dL 1.6 - 2 .6 mg/dL [facility] Magnesium [Mass/Vol] 2.0 mg/dL Normal 1.6-2.6 [facility] Comment on above: Performed By: #### L EGN #### [facility] (DEFAULT) [address] [place] [address] No Panel Informationon 09-06 Interpretation and review of laboratory results Abnormal [facility] TACROLIMUS LEVEL, TROUGH ([place] E DRUG LEVEL)on 09-06-2023 Interpretation and review of laboratory results Normal [facility] Tacrolimus (Bld) [Mass/Vol] 6.7 ng/mL [facility] Tacrolimus, Trough 6.7 ng/mL Normal Bone Susana ow Transplant: 4.0-12.0, Therapeutic: 5.0-15.0 [facility] Comment on above: Order Comment: Pleas e draw at specified interval PRIOR to dose. Do not hold dose to wait for level. Specimens batched twice per day, (M-) and once per day weekends Method performed is a chemiluminescent microparticle immunoasssay on the [employer] i2000. The range is based on experience at [facility] and users should be aware that target concentrations vary widely depending on concomitant therapy, time post-transplant, and desired degree of immunosuppression. Performed By: #### T ACRO #### [facility] (DEFAULT) [address] [place] [address] CBC,PLATELETSon 09-05-2023 Hematocrit (Bld) [Volume fraction] 35.6 % Low 39.6-48.8 [facility] Comment on above: Performed By: #### T ACRO #### [facility] (DEFAULT) [address] [place] [address] Hemoglobin (Bld) [Mass/Vol] 11.4 g/dL Low 13.4-16.8 [facility] Comment on above: Performed By: #### T ACRO #### [facility] (DEFAULT) [address] [place] [address]75 MCV (RBC) [Entitic vol] 86.0 fL Normal 79.0-94.5 [facility] Comment on above: Performed By: #### T ACRO #### [facility] (DEFAULT) [address] [address] Mean Cell Hgb 27.5 pg Normal 26.1-33.3 [facility] Comment on above: Performed By: #### T ACRO #### [facility] (DEFAULT) [address] [place] [address] 97170 Mean Cell Hgb Conc 32.0 g/dL Normal 31.9-36.5 [facility] Comment on above: Performed By: #### T ACRO #### [facility] (DEFAULT) [address] [place] [address] 86082 Platelet mean volume (Bld) [Entitic vol] 10.0 fL Normal 8.7-12.3 [facility] Comment on above: Performed By: #### T ACRO #### [facility] (DEFAULT) [address] [address] Platelets (Bld) [#/Vol] 170 10*3/uL Normal 146-337 [facility] Comment on above: Performed By: #### T ACRO #### [facility] (DEFAULT) [address] [address] RBC (Bld) [#/Vol] 4.14 10*6/uL Low 4.38-5.83 [facility] Comment on above: Performed By: #### T ACRO #### [facility] (DEFAULT) [address] [place] [address] [place] [address] RBC Distribution 13.5 % Normal 10.9-14.3 [facility] Comment on above: Performed By: #### T ACRO #### [facility] (DEFAULT) [address] [place] [address] WBC (Bld) [#/Vol] 4.24 10*3/uL Normal 3.73-10.10 [facility] Comment on above: Performed By: #### T ACRO #### [facility] (DEFAULT) [address] [place] [address]22 Erythrocyte distribution width (RBC) [Ratio] 13.5 % 10.9 - 14.3 % [facility] Hematocrit (Bld) [Volume fraction] 35.6 % Low 39.6 - 48.8 % [facility] Hemoglobin (Bld) [Mass/Vol] 11.4 g/dL Low 13.4 - 16.8 g/dL [facility] Interpretation and review of laboratory results Abnormal [facility] MCH (RBC) [Entitic mass] 27.5 pg 26.1 - 33.3 pg [facility] MCHC (RBC) [Mass/Vol] 32.0 g/dL 31.9 - 36.5 g/dL [facility] MCV (RBC) [Entitic vol] 86.0 fL 79.0 - 94.5 fL [facility] Platelet mean volume (Bld) [Entitic vol] 10.0 fL 8.7 - 12.3 fL [facility] Platelets (Bld) [#/Vol] 170 10*3/uL 146 - 337 K/uL [facility] RBC (Bld) [#/Vol] 4.14 10*6/uL Low [facility] WBC (Bld) [#/Vol] 4.24 10*3/uL 3.73 - 10. 10 K/uL [facility] CHEM 7 (LYTES,BUN,CREA,GLUC) on 09-05-2023 Anion gap [Moles/Vol] 12 mmol/L Normal 7-17 [facility] Comment on above: Performed By: #### L EGN #### [facility] (DEFAULT) [address] [place] [address] Chloride [Moles/Vol] 107 mmol/L Normal 98-108 [facility] Comment on above: Performed By: #### L EGN #### [facility] (DEFAULT) [address] [place] [address]384 CO2 [Moles/Vol] 20 mmol/L Low 21-31 [facility] Comment on above: Performed By: #### L EGN #### [facility] (DEFAULT) [address] [place] [address] 83262 Creatinine [Mass/Vol] 1.43 mg/dL High 0.70-1.30 [facility] Comment on above: Performed By: #### L EGN #### [facility] (DEFAULT) [address] [place] [address] 46085 GFR/1.73 sq M.predicted among non-blacks MDRD (S/P/Bld) [Vol rate/Area] 59 mL/min/{1.73_m2} Low >=60 [facility] Comment on above: Result Comment: Repo rted eGFR is based on the CKD-EPI 2020 equation using creatinine, age, and sex. Performed By: #### L EGN #### [facility] (DEFAULT) [address] [place] [address] 20238 Glucose [Mass/Vol] 111 mg/dL High 70-99 [facility] Comment on above: Performed By: #### L EGN #### [facility] (DEFAULT) [address] [place] [address] 23148 Osmolality [Osmolality] 286 mosm/kg Normal 278-305 [facility] Comment on above: Performed By: #### L EGN #### [facility] (DEFAULT) [address] [place] [address] 94738 Potassium [Moles/Vol] 4.2 mmol/L Normal 3.5-5.0 [facility] Comment on above: Performed By: #### L EGN #### [facility] (DEFAULT) [address] [place] [address] Sodium [Moles/Vol] 135 mmol/L Normal 135-145 [facility] Comment on above: Performed By: #### L EGN #### [facility] (DEFAULT) [address] [place] [address] Urea nitrogen [Mass/Vol] 18 mg/dL Normal 7-25 [facility] Comment on above: Performed By: #### L EGN #### [facility] (DEFAULT) [address] [place] [address] Urea nitrogen/Creatinine [Mass ratio] 13 mg/mg Normal [facility] Comment on above: Performed By: #### L EGN #### [facility] (DEFAULT) [address] [place] [address] 48335 Anion gap [Moles/Vol] 12 mmol/L 7 - 17 mmol/L [facility] Chloride [Moles/Vol] 107 mmol/L 98 - 10 8 mmol/L [facility] CO2 [Moles/Vol] 20 mmol/L Low 21 - 31 mmol/L [facility] Creatinine [Mass/Vol] 1.43 mg/dL High 0.70 - 1.30 mg/dL [facility] [facility] eGFR, CKD-EPI, Male 60 Low - PINF [facility] Glucose [Mass/Vol] 111 mg/dL High 70 - 99 mg/dL [facility] Osmolality Calc [Osmolality] [address] [facility] Potassium [Moles/Vol] 4.2 mmol/L 3.5 - 5.0 mmol/L [facility] Sodium [Moles/Vol] 135 mmol/L 135 - 145 mmol/L [facility] Urea nitrogen [Mass/Vol] 18 mg/dL 7 - 25 mg/[facility] Urea nitrogen/Creatinine [Mass ratio] 13 mg/mg [facility] CONTINUOUS CARDIAC MONITORIN G STRIPon 09-05-2023 [facility] HEPATIC FUNCTION PANELon Albumin [Mass/Vol] 2.8 g/dL Low 3.5-5.0 [facility] Comment on above: Performed By: #### L EGN #### [facility] (DEFAULT) [address] [place] [address] ALP [Catalytic activity/Vol] 103 U/L Normal 32-126 [facility] Comment on above: Performed By: #### L EGN #### [facility] (DEFAULT) [address] [place] [address] ALT [Catalytic activity/Vol] 26 U/L Normal 10-52 [facility] Comment on above: Performed By: #### L EGN #### [facility] (DEFAULT) [address] [place] [address] AST [Catalytic activity/Vol] 38 U/L Normal 10-39 [facility] Comment on above: Performed By: #### L EGN #### [facility] (DEFAULT) [address] [place] [address] Bilirubin [Mass/Vol] 0.9 mg/dL Normal <1.5 [facility] Comment on above: Performed By: #### L EGN #### [facility] (DEFAULT) [address] [place] [address] Bilirubin.indirect [Mass/Vol] 0.1 mg/dL Normal <0.3 [facility] Comment on above: Performed By: #### L EGN #### [facility] (DEFAULT) [address] [place] [address] Protein [Mass/Vol] 6.1 g/dL Low 6.4-8.3 [facility] Comment on above: Performed By: #### L EGN #### [facility] (DEFAULT) [address] [place] [address] Albumin [Mass/Vol] 2.8 g/dL Low 3.5 - 5.0 g/dL [facility] ALP [Catalytic activity/Vol] 103 U/L 32 - 126 U/L [facility] ALT [Catalytic activity/Vol] 26 U/L 10 - 52 U/L [facility] AST [Catalytic activity/Vol] 38 U/L 10 - 39 U/L [facility] Bilirubin [Mass/Vol] 0.9 mg/dL NINF - 1.5 mg/dL [facility] Bilirubin.direct [Mass/Vol] 0.1 mg/dL NINF - 0.3 mg/dL [facility] Protein [Mass/Vol] 6.1 g/dL Low 6.4 - 8.3 g/dL [facility] HISTOPLASMA ANTIGEN, FLUIDon 09-05-2023 FH SOURCE BAL RML [facility] Histo FLD interpretation Negative [facility] Histoplasma Antigen, FLUID Not detected ng/mL [facility] HISTOPLASMA CAPSULATUM/BLAST OMYCES SPECIES,PCR FLUIDon 09-05-2023 HISTO/BLASTO RESULT Negative Not Applicable [facility] Specimen source Nom (Unsp spec) BAL RML [facility] IMMUNOPHENOTYPING, TISSUE/FL UIDon 09-05-2023 BKR DX CODE Use Ordering [facility] Flow Interpretation See Comment [facility] Flow Interpreted by: Yossi Perla MD, PhD [facility] MAGNESIUMon 09-05-2023 Magnesium [Mass/Vol] 1.7 mg/dL Normal 1.6-2.6 [facility] Comment on above: Performed By: #### L EGN #### [facility] (DEFAULT) [address] [place] [address] Interpretation and review of laboratory results Normal [facility] Magnesium [Mass/Vol] 1.7 mg/dL 1.6 - 2 .6 mg/dL [facility] No Panel Informationon 09-05 Interpretation and review of laboratory results Abnormal [facility] TACROLIMUS LEVEL, TROUGH ([place] E DRUG LEVEL)Ordered By: Raymundo Mehta on 09-05-2023 Interpretation and review of laboratory results Normal [facility] Tacrolimus (Bld) [Mass/Vol] 5.3 ng/mL [facility] TACROLIMUS LEVEL, TROUGH ([place] E DRUG LEVEL)on 09-05-2023 Tacrolimus, Trough 5.3 ng/mL Normal Bone Susana ow Transplant: 4.0-12.0, Therapeutic: 5.0-15.0 [facility] Comment on above: Order Comment: Pleas e draw at specified interval PRIOR to dose. Do not hold dose to wait for level. Specimens batched twice per day, (M-F) and once per day weekendsMethod performed is a chemiluminescent microparticle immunoasssay on the [employer] i2000.The range is based on experience at [facility] and users should be aware that target concentrations vary widely depending on concomitant therapy, time post-transplant, and desired degree of immunosuppression. Performed By: #### Y PNRP #### [facility] (DEFAULT) [address] [address] ARTERIAL BLOOD GAS (FULL PUENTE EL)on 09-04-2023 Base Excess -1.2 mmol/L Normal -3.0-3.0 [facility] Comment on above: Performed By: #### G YASMINE #### [facility] (DEFAULT) [address] [address] Carboxyhemoglobin 0.7 % Normal <=1.5 [facility] Comment on above: Performed By: #### G YASMINE #### [facility] (DEFAULT) [address] [address] Glucose [Mass/Vol] 159 mg/dL High 70-99 [facility] Comment on above: Performed By: #### G YASMINE #### [facility] (DEFAULT) [address] [place] [address] HCO3 (Bld) [Moles/Vol] 22 mmol/L Normal 22-28 [facility] Comment on above: Performed By: #### Vale UNDERWOOD #### [facility] (DEFAULT) [address] [place] [address] Hematocrit (Bld) [Volume fraction] 38.0 % Low 40.2-50.4 [facility] Comment on above: Performed By: #### Vale UNDERWOOD #### [facility] (DEFAULT) [address] [place] [address] Hemoglobin (Bld) [Mass/Vol] 12.6 g/dL Low 13.4-16.8 [facility] Comment on above: Performed By: #### Vale UNDERWOOD #### [facility] (DEFAULT) [address] [place] [address] Ionized Calcium, Whole Blood 4.79 mg/dL Normal 4.60-5.30 [facility] Comment on above: Performed By: ###Walter UNDERWOOD #### [facility] (DEFAULT) [address] [place] [address] Lactate, Whole Blood 2.0 mmol/L High 0.5-1.6 [facility] Comment on above: Performed By: ###Walter UNDERWOOD #### [facility] (DEFAULT) [address] [place] [address] Methemoglobin 0.0 % Normal <=1.5 [facility] Comment on above: Performed By: #### Vale UNDERWOOD #### [facility] (DEFAULT) [address] [place] [address] Oxyhemoglobin 91 % Low 94-98 [facility] Comment on above: Performed By: #### Vale UNDERWOOD #### [facility] (DEFAULT) [address] [place] [address] pCO2 30 mm Hg Low 32-48 [facility] Comment on above: Performed By: #### Vale UNDERWOOD #### [facility] (DEFAULT) [address] [place] [address] pH (Bld) 7.48 [pH] High 7.35-7.45 [facility] Comment on above: Performed By: #### Vale UNDERWOOD #### [facility] (DEFAULT) [address] [place] [address] pO2 62 mm Hg Low 83-108 [facility] Comment on above: Performed By: #### Vale UNDERWOOD #### [facility] (DEFAULT) [address] [place] [address] Potassium [Moles/Vol] 4.2 mmol/L Normal 3.5-5.0 [facility] Comment on above: Performed By: #### Vale UNDERWOOD #### [facility] (DEFAULT) [address] [place] [address] sO2 92 % Low 94-98 [facility] Comment on above: Performed By: #### Vale UNDERWOOD #### [facility] (DEFAULT) [address] [place] [address] Sodium [Moles/Vol] 130 mmol/L Low 135-145 [facility] Comment on above: Performed By: #### Vale UNDERWOOD #### [facility] (DEFAULT) [address] [place] [address] Specimen type Nom (Spec) Arterial Normal [facility] Comment on above: Performed By: ###Walter UNDERWOOD #### [facility] (DEFAULT) [address] [place] [address] Base excess Calc (Bld) [Moles/Vol] -1.2000 mmol/L -3.0 - 3.0 mmol/L [facility] Calcium.ionized (Bld) [Mass/Vol] 4.79 mg/dL 4.60 - 5.30 mg/dL [facility] Carboxyhemoglobin (Bld) [Mass fraction] 0.7 % NINF - 1.5 % [facility] CO2 (Bld) [Partial pressure] 30 mm[Hg] Low [facility] Glucose [Mass/Vol] 159 mg/dL High 70 - 99 mg/dL [facility] HCO3 (Bld) [Moles/Vol] 22 mmol/L 22 - 28 mmol/L [facility] Hematocrit (Bld) [Volume fraction] 38.0 % Low 40.2 - 50.4 % [facility] Hemoglobin (Bld) [Mass/Vol] 12.6 g/dL Low 13.4 - 16.8 g/dL [facility] Interpretation and review of laboratory results Abnormal [facility] Lactate [Moles/Vol] 2.0 mmol/L High 0.5 - 1. 6 mmol/L [facility] Methemoglobin (Bld) [Mass fraction] 0.0 % NINF - 1.5 % [facility] Oxygen (Bld) [Partial pressure] 62 mm[Hg] Low [facility] Oxygen saturation in Blood 92 % Low 94 - 98 % [facility] Oxyhemoglobin 91 % Low 94 - 98 % [facility] pH (Bld) 7.48 [pH] High 7.35 - 7.45 [facility] Potassium [Moles/Vol] 4.2 mmol/L 3.5 - 5.0 mmol/L [facility] Sodium [Moles/Vol] 130 mmol/L Low 135 - 145 mmol/L [facility] Specimen source Nom (Unsp spec) Arterial [facility] Bacteria identified Respirat ory culture Nom (Unsp spec)on 09-04-2023 Bacteria identified Cx Nom (Unsp spec) NO GROWTH DAY [address] [facility] Microscopic observation Other stain Nom (Unsp spec) Cytocentrifuge preparation [facility] Microscopic observation Other stain Nom (Unsp spec) Neutrophils, Rare [facility] Microscopic observation Other stain Nom (Unsp spec) Red Blood Cells Present [facility] Microscopic observation Other stain Nom (Unsp spec) No organisms seen [facility] Bacteria identified Respirat ory culture Nom (Unsp spec)Ordered By: Jose Salgado on 09-04-2023 Bacteria identified Cx Nom (Unsp spec) NO GROWTH DAY [address] [facility] Microscopic observation Other stain Nom (Unsp spec) Cytocentrifuge preparation [facility] Microscopic observation Other stain Nom (Unsp spec) Neutrophils, Moderate [facility] Microscopic observation Other stain Nom (Unsp spec) Red Blood Cells Present OS [facility] Microscopic observation Other stain Nom (Unsp spec) No organisms seen [facility] CBC,PLATELETSon 09-04-2023 Hematocrit (Bld) [Volume fraction] 38.7 % Low 39.6-48.8 [facility] Comment on above: Performed By: #### N ONGNNONFNA #### [facility] (DEFAULT) [address] [place] [address] Hemoglobin (Bld) [Mass/Vol] 12.3 g/dL Low 13.4-16.8 [facility] Comment on above: Performed By: #### N ONGNNONFNA #### [facility] (DEFAULT) [address] [place] [address] MCV (RBC) [Entitic vol] 87.8 fL Normal 79.0-94.5 [facility] Comment on above: Performed By: #### N ONGNNONFNA #### [facility] (DEFAULT) [address] [place] [address] Mean Cell Hgb 27.9 pg Normal 26.1-33.3 [facility] Comment on above: Performed By: #### N ONGNNONFNA #### [facility] (DEFAULT) [address] [place] [address] Mean Cell Hgb Conc 31.8 g/dL Low 31.9-36.5 [facility] Comment on above: Performed By: #### N ONGNNONFNA #### [facility] (DEFAULT) [address] [place] [address] Platelet mean volume (Bld) [Entitic vol] 9.8 fL Normal 8.7-12.3 [facility] Comment on above: Performed By: #### N ONGNNONFNA #### [facility] (DEFAULT) [address] [place] [address] Platelets (Bld) [#/Vol] 173 10*3/uL Normal 146-337 [facility] Comment on above: Performed By: #### N ONGNNONFNA #### [facility] (DEFAULT) [address] [place] [address] RBC (Bld) [#/Vol] 4.41 10*6/uL Normal 4.38-5.83 [facility] Comment on above: Performed By: #### N ONGNNONFNA #### [facility] (DEFAULT) [address] [place] [address] RBC Distribution 13.2 % Normal 10.9-14.3 [facility] Comment on above: Performed By: #### N ONGNNONFNA #### [facility] (DEFAULT) [address] [place] [address] WBC (Bld) [#/Vol] 4.57 10*3/uL Normal 3.73-10.10 [facility] Comment on above: Performed By: #### N ONGNNONFNA #### [facility] (DEFAULT) [address] [place] [address] Erythrocyte distribution width (RBC) [Ratio] 13.2 % 10.9 - 14.3 % [facility] Hematocrit (Bld) [Volume fraction] 38.7 % Low 39.6 - 48.8 % [facility] Hemoglobin (Bld) [Mass/Vol] 12.3 g/dL Low 13.4 - 16.8 g/dL [facility] Interpretation and review of laboratory results Abnormal [facility] MCH (RBC) [Entitic mass] 27.9 pg 26.1 - 33.3 pg [facility] MCHC (RBC) [Mass/Vol] 31.8 g/dL Low 31.9 - 36.5 g/dL [facility] MCV (RBC) [Entitic vol] 87.8 fL 79.0 - 94.5 fL [facility] Platelet mean volume (Bld) [Entitic vol] 9.8 fL 8.7 - 12.3 fL [facility] Platelets (Bld) [#/Vol] 173 10*3/uL 146 - 337 K/uL [facility] RBC (Bld) [#/Vol] 4.41 10*6/uL [facility] WBC (Bld) [#/Vol] 4.57 10*3/uL 3.73 - 10. 10 K/uL [facility] CHEM 7 (LYTES,BUN,CREA,GLUC) on 09-04-2023 Anion gap [Moles/Vol] 16 mmol/L Normal 7-17 [facility] Comment on above: Performed By: #### N ONGNAURELIANONA #### [facility] (DEFAULT) [address] [address] Chloride [Moles/Vol] 104 mmol/L Normal 98-108 [facility] Comment on above: Performed By: #### N ONGNGRAEMEFNA #### [facility] (DEFAULT) [address] [address] CO2 [Moles/Vol] 18 mmol/L Low 21-31 [facility] Comment on above: Performed By: #### N ONGNGRAEMEFNA #### [facility] (DEFAULT) [address] [address] Creatinine [Mass/Vol] 1.22 mg/dL Normal 0.70-1.30 [facility] Comment on above: Performed By: #### N ONGNNONFNA #### [facility] (DEFAULT) [address] [address] GFR/1.73 sq M.predicted among non-blacks MDRD (S/P/Bld) [Vol rate/Area] 71 mL/min/{1.73_m2} Normal >=60 [facility] Comment on above: Result Comment: Repo rted eGFR is based on the CKD-EPI 2020 equation using creatinine, age, and sex. Performed By: #### N ONGNGRAEMEFNA #### [facility] (DEFAULT) [address] [place] [address] Glucose [Mass/Vol] 124 mg/dL High 70-99 [facility] Comment on above: Performed By: #### N ONGNNONFNA #### [facility] (DEFAULT) [address] [place] [address] Osmolality [Osmolality] 284 mosm/kg Normal 278-305 [facility] Comment on above: Performed By: #### N ONGNGRAEMEFNA #### [facility] (DEFAULT) [address] [place] [address] Potassium [Moles/Vol] 3.9 mmol/L Normal 3.5-5.0 [facility] Comment on above: Performed By: #### N ONGNGRAEMEFNA #### [facility] (DEFAULT) [address] [place] [address] Sodium [Moles/Vol] 134 mmol/L Low 135-145 [facility] Comment on above: Performed By: #### N ONGNGRAEMEFNA #### [facility] (DEFAULT) [address] [place] [address] Urea nitrogen [Mass/Vol] 15 mg/dL Normal 7-25 [facility] Comment on above: Performed By: #### N ONGNNONFNA #### [facility] (DEFAULT) [address] [place] [address] Urea nitrogen/Creatinine [Mass ratio] 12 mg/mg Normal [facility] Comment on above: Performed By: #### N ONGNNONFNA #### [facility] (DEFAULT) [address] [place] [address] Anion gap [Moles/Vol] 16 mmol/L 7 - 17 mmol/L [facility] Chloride [Moles/Vol] 104 mmol/L 98 - 10 8 mmol/L [facility] CO2 [Moles/Vol] 18 mmol/L Low 21 - 31 mmol/L [facility] Creatinine [Mass/Vol] 1.22 mg/dL 0.70 - 1.30 mg/dL [facility] eGFR, CKD-EPI, Male 72 - PINF [facility] Glucose [Mass/Vol] 124 mg/dL High 70 - 99 mg/dL [facility] Osmolality Calc [Osmolality] [address] [facility] Potassium [Moles/Vol] 3.9 mmol/L 3.5 - 5.0 mmol/L [facility] Sodium [Moles/Vol] 134 mmol/L Low 135 - 145 mmol/L [facility] Urea nitrogen [Mass/Vol] 15 mg/dL 7 - 25 mg/dL [facility] Urea nitrogen/Creatinine [Mass ratio] 12 mg/mg [facility] CMV PCR,FLUIDS,URINE,EYE ETC on 09-04-2023 Specimen source Nom (Unsp spec) BAL LLL [facility] Specimen source Nom (Unsp spec) BAL RML [facility] HEPATIC FUNCTION PANELon Albumin [Mass/Vol] 3.0 g/dL Low 3.5-5.0 [facility] Comment on above: Performed By: #### N ONGNNONFNA #### [facility] (DEFAULT) [address] [place] [address] ALP [Catalytic activity/Vol] 112 U/L Normal 32-126 [facility] Comment on above: Performed By: #### N ONGNNONFNA #### [facility] (DEFAULT) [address] [place] [address] ALT [Catalytic activity/Vol] 22 U/L Normal 10-52 [facility] Comment on above: Performed By: #### N ONGNNONFNA #### [facility] (DEFAULT) [address] [place] [address] AST [Catalytic activity/Vol] 30 U/L Normal 10-39 [facility] Comment on above: Performed By: #### N ONGNNONFNA #### [facility] (DEFAULT) [address] [place] [address] Bilirubin [Mass/Vol] 1.2 mg/dL Normal <1.5 [facility] Comment on above: Performed By: #### N ONGNNONFNA #### [facility] (DEFAULT) [address] [place] [address] Bilirubin.indirect [Mass/Vol] 0.4 mg/dL High <0.3 [facility] Comment on above: Performed By: #### N ONGNNONFNA #### [facility] (DEFAULT) [address] [place] [address] Protein [Mass/Vol] 6.4 g/dL Normal 6.4-8.3 [facility] Comment on above: Performed By: #### N ONGNNONFNA #### [facility] (DEFAULT) [address] [place] [address] Albumin [Mass/Vol] 3.0 g/dL Low 3.5 - 5.0 g/dL [facility] ALP [Catalytic activity/Vol] 112 U/L 32 - 126 U/L [facility] ALT [Catalytic activity/Vol] 22 U/L 10 - 52 U/L [facility] AST [Catalytic activity/Vol] 30 U/L 10 - 39 U/L [facility] Bilirubin [Mass/Vol] 1.2 mg/dL NINF - 1.5 mg/dL [facility] Bilirubin.direct [Mass/Vol] 0.4 mg/dL High NINF - 0.3 mg/dL [facility] Protein [Mass/Vol] 6.4 g/dL 6.4 - 8.3 g/dL [facility] LEGIONELLA PCRon 09-04-2023 Legionella sp rRNA Probe Ql (Unsp spec) Negative Not Applicable [facility] Specimen source Nom (Unsp spec) BAL RML [facility] - Microbiology an d Antimicrobial susceptibilityon 09-04-2023 CMV DNA ESTELITA+probe Ql (Unsp spec) Negative Negative [facility] MAGNESIUMon 09-04-2023 Magnesium [Mass/Vol] 1.4 mg/dL Low 1.6-2.6 [facility] Comment on above: Performed By: #### N ONGNNONFNA #### [facility] (DEFAULT) [address] [place] [address] Magnesium [Mass/Vol] 1.4 mg/dL Low 1.6 - 2 .6 mg/dL [facility] No Panel Informationon 09-04 Annotation comment [Interpretation] Narrative DNR [facility] PN Report Status DNR [facility] Pneumocystis jiroveci,PCR result Negative Not Applicable [facility] Interpretation and review of laboratory results Abnormal [facility] PNEUMOCYSTIS JIROVECI,PCRon 09-04-2023 Specimen source Nom (Unsp spec) BAL LLL [facility] Specimen source Nom (Unsp spec) BAL RML [facility] Portable XR Chest Viewson RADIOLOGY RADIOLOGY [facility] Radiology Study observation (narrative) [facility] Portable XR Chest ViewsOrder ed By: Joanie Nugent on 09-04-2023 [facility] Work Phone: TACROLIMUS LEVEL, TROUGH ([place] E DRUG LEVEL)on 09-04-2023 Interpretation and review of laboratory results Abnormal [facility] Tacrolimus (Bld) [Mass/Vol] 3.6 ng/mL Low [facility] Tacrolimus, Trough 3.6 ng/mL Low Bone Susana ow Transplant: 4.0-12.0, Therapeutic: 5.0-15.0 [facility] Comment on above: Order Comment: Pleas e draw at specified interval PRIOR to dose. Do not hold dose to wait for level. Specimens batched twice per day, (M-F) and once per day weekends Method performed is a chemiluminescent microparticle immunoasssay on the [employer] i2000. The range is based on experience at [facility] and users should be aware that target concentrations vary widely depending on concomitant therapy, time post-transplant, and desired degree of immunosuppression. Performed By: #### T ACRO #### [facility] (DEFAULT) [address] [place], [place] [id number] XR CHEST PORTABLEon 09-04-20 XR CHEST PORTABLE EXAM: XR CHEST PORTABLE, 09/04/2023 09:43 AM COMPARISON: Compared to prior day. CLINICAL INDICATIONS: Hypoxemia. please comment on new abnormalities RELEVANT CLINICAL HISTORY: FINDINGS: (Adequate technique) Implanted Devices: None Thorax: Improved left perihilar airspace opacity. However new hazy opacities in the left mid and lower lungs. No pleural effusion or pneumothorax. Stable cardiomediastinal silhouette and osseous structures. IMPRESSION: Waxing and waning airspace opacities in the left lung likely infectious/inflammatory process. Normal [facility] ASPERGILLUS ANTIGEN, BALon 1 Galactomannan Ag IA Qn (Unsp spec) <0.500 [facility] Galactomannan Ag IA Qn (Unsp spec) <0.500 [facility] BAL CONSULTOrdered By: Noa Peralta on 09-03-2023 ALVEOLAR MACROPHAGES 32 % [facility] Work Phone: Bal comments Correlation with microbiology stains and cultures is recommended. [facility] Work Phone: Bal Diff Quik Stain Quality Check Acceptable [facility] Work Phone: BKR BAL INTERPRETATION Cellular specimen comprised of alveolar macrophages and small lymphocytes. No definitive microorganisms are observed. Moderate degenerative changes. [facility] Work Phone: BKR DX CODE Use Ordering [facility] Work Phone: Eosinophils Patterson stain Ql (Unsp spec) 0 % [facility] Work Phone: Lymphocytes/100 WBC (Bld) 57 % [facility] Work Phone: Neutrophils/100 WBC Manual cnt (Bronch spec) 11 % [facility] Work Phone: Pathologist review Jame (Unsp spec) [Interp] Leonardo Peralta MD [facility] Work Phone: [facility] Work Phone: BAL CONSULTon 09-03-2023 ALVEOLAR MACROPHAGES 33 % [facility] Bal comments Correlation with microbiology stains and cultures is recommended. Correlation with viral studies is recommended. [facility] Bal Diff Quik Stain Quality Check Acceptable [facility] BKR BAL INTERPRETATION Cellular specimen comprised of alveolar macrophages and small lymphocytes. No definitive microorganisms are observed. Rare degenerating cells with changes suggestive of viral cytopathic effect are noted. Moderate degenerative changes. [facility] BKR DX CODE Use Ordering [facility] Eosinophils Patterson stain Ql (Unsp spec) 0 % [facility] Lymphocytes/100 WBC (Bld) 49 % [facility] Neutrophils/100 WBC Manual cnt (Bronch spec) 18 % [facility] Pathologist review Jame (Unsp spec) [Interp] Leonardo Peralta MD [facility] BRONCHOSCOPYon 09-03-2023 LAB, [facility] CBC,PLATELETSon 09-03-2023 Hematocrit (Bld) [Volume fraction] 39.6 % Normal 39.6-48.8 [facility] Comment on above: Performed By: #### T ACRO #### [facility] (DEFAULT) [address] [address] Hemoglobin (Bld) [Mass/Vol] 12.8 g/dL Low 13.4-16.8 [facility] Comment on above: Performed By: #### T ACRO #### [facility] (DEFAULT) [address] [address] MCV (RBC) [Entitic vol] 85.9 fL Normal 79.0-94.5 [facility] Comment on above: Performed By: #### T ACRO #### [facility] (DEFAULT) [address] [address] Mean Cell Hgb 27.8 pg Normal 26.1-33.3 [facility] Comment on above: Performed By: #### T ACRO #### [facility] (DEFAULT) [address] [address] Mean Cell Hgb Conc 32.3 g/dL Normal 31.9-36.5 [facility] Comment on above: Performed By: #### T ACRO #### [facility] (DEFAULT) [address] [address] Platelet mean volume (Bld) [Entitic vol] 9.4 fL Normal 8.7-12.3 [facility] Comment on above: Performed By: #### T ACRO #### [facility] (DEFAULT) [address] [address] Platelets (Bld) [#/Vol] 222 10*3/uL Normal 146-337 [facility] Comment on above: Performed By: #### T ACRO #### [facility] (DEFAULT) [address] [address] RBC (Bld) [#/Vol] 4.61 10*6/uL Normal 4.38-5.83 [facility] Comment on above: Performed By: #### T ACRO #### [facility] (DEFAULT) [address] [address] RBC Distribution 13.4 % Normal 10.9-14.3 [facility] Comment on above: Performed By: #### T ACRO #### [facility] (DEFAULT) [address] [place] [address] WBC (Bld) [#/Vol] 4.36 10*3/uL Normal 3.73-10.10 [facility] Comment on above: Performed By: #### T ACRO #### [facility] (DEFAULT) [address] [place] [address] Erythrocyte distribution width (RBC) [Ratio] 13.4 % 10.9 - 14.3 % [facility] Hematocrit (Bld) [Volume fraction] 39.6 % 39.6 - 48.8 % [facility] Hemoglobin (Bld) [Mass/Vol] 12.8 g/dL Low 13.4 - 16.8 g/dL [facility] Interpretation and review of laboratory results Abnormal [facility] MCH (RBC) [Entitic mass] 27.8 pg 26.1 - 33.3 pg [facility] MCHC (RBC) [Mass/Vol] 32.3 g/dL 31.9 - 36.5 g/dL [facility] MCV (RBC) [Entitic vol] 85.9 fL 79.0 - 94.5 fL [facility] Platelet mean volume (Bld) [Entitic vol] 9.4 fL 8.7 - 12.3 fL [facility] Platelets (Bld) [#/Vol] 222 10*3/uL 146 - 337 K/uL [facility] RBC (Bld) [#/Vol] 4.61 10*6/uL [facility] WBC (Bld) [#/Vol] 4.36 10*3/uL 3.73 - 10. 10 K/uL [facility] CHEM 7 (LYTES,BUN,CREA,GLUC) on 09-03-2023 Anion gap [Moles/Vol] 12 mmol/L Normal 7-17 [facility] Comment on above: Performed By: #### L EGN #### [facility] (DEFAULT) [address] [place] [address] Chloride [Moles/Vol] 104 mmol/L Normal 98-108 [facility] Comment on above: Performed By: #### L EGN #### [facility] (DEFAULT) [address] [place] [address] CO2 [Moles/Vol] 24 mmol/L Normal 21-31 [facility] Comment on above: Performed By: #### L EGN #### [facility] (DEFAULT) [address] [place] [address] Creatinine [Mass/Vol] 1.20 mg/dL Normal 0.70-1.30 [facility] Comment on above: Performed By: #### L EGN #### [facility] (DEFAULT) [address] [address] GFR/1.73 sq M.predicted among non-blacks MDRD (S/P/Bld) [Vol rate/Area] 73 mL/min/{1.73_m2} Normal >=60 [facility] Comment on above: Result Comment: Repo rted eGFR is based on the CKD-EPI 2020 equation using creatinine, age, and sex. Performed By: #### L EGN #### [facility] (DEFAULT) [address] [address] Glucose [Mass/Vol] 112 mg/dL High 70-99 [facility] Comment on above: Performed By: #### L EGN #### [facility] (DEFAULT) [address] [address] Osmolality [Osmolality] 288 mosm/kg Normal 278-305 [facility] Comment on above: Performed By: #### L EGN #### [facility] (DEFAULT) [address] [address] Potassium [Moles/Vol] 4.1 mmol/L Normal 3.5-5.0 [facility] Comment on above: Performed By: #### L EGN #### [facility] (DEFAULT) [address] [place] [address] Sodium [Moles/Vol] 136 mmol/L Normal 135-145 [facility] Comment on above: Performed By: #### L EGN #### [facility] (DEFAULT) [address] [place] [address] Urea nitrogen [Mass/Vol] 17 mg/dL Normal 7-25 [facility] Comment on above: Performed By: #### L EGN #### [facility] (DEFAULT) [address] [place] [address] Urea nitrogen/Creatinine [Mass ratio] 14 mg/mg Normal [facility] Comment on above: Performed By: #### L EGN #### [facility] (DEFAULT) [address] [place] [address] Anion gap [Moles/Vol] 12 mmol/L 7 - 17 mmol/L [facility] Chloride [Moles/Vol] 104 mmol/L 98 - 10 8 mmol/L [facility] CO2 [Moles/Vol] 24 mmol/L 21 - 31 mmol/L [facility] Creatinine [Mass/Vol] 1.20 mg/dL 0.70 - 1.30 mg/dL [facility] eGFR, CKD-EPI, Male 74 - PINF [facility] Glucose [Mass/Vol] 112 mg/dL High 70 - 99 mg/dL [facility] Osmolality Calc [Osmolality] 288 [facility] Potassium [Moles/Vol] 4.1 mmol/L 3.5 - 5.0 mmol/L [facility] Sodium [Moles/Vol] 136 mmol/L 135 - 145 mmol/L [facility] Urea nitrogen [Mass/Vol] 17 mg/dL 7 - 25 mg/dL [facility] Urea nitrogen/Creatinine [Mass ratio] 14 mg/mg [facility] CYTOLOGY, NON-GYNOrdered By: Sherice Jimenez on 09-03-2023 CYTOLOGIC DIAGNOSIS l1rpiKBoCPOqrCLmWWRvU0a djxApWOOdnPTkV4XjkwvoNV tgHF7mSJ8tbRurnYXxeEGbG PLgQbCqs9hvz383aUQyc0mv GNMWlrrtmLn4m0fzQMSGxP6 bg3b2gD91YBCkuR3zvDRzWG nkiyJtLYmpbtCpxdVrIgq0B JF7kZioZdjmpVV7vCYqjPB2 BDrac7KvpMgkbWcePZF4DXF jTfgvXOsibPW7cIRfgObfuW LyGL4ue2cbfYH0tdIwNHV2f UlrbFI9gCcymgkpp1ugxEE2 bSO5QNlpoIR1JJcoTvGwR3n wFCGprR6jD26sE6yoGEZbfF zjIFxwBLDrgND6XJY1JEGde 1xsZXZlbHRleHRcJzAxXCdi Ckh1b3rzZQKqrP37bVUrqjC 0lVgfZTcbbPJ8DT28MFdrf6 ZwUWLgtUgxBQFbyN2nXxZeW GxldmVsbmZjbjIzXGxldmVs udRgTJvdjsHji7DbkrRcmIR 9BYvxfpIrzOT3zQijCUVcU8 D9U945MDgatiCsheHqGcOic kr8QTXqpImaiDbqsRzltgNx EXvaztSorjFyLeUtnLF4ZQv dMvBrQtEkyUX9NMosWuKtgK I7KAckfGOuoOH6FDujkZF5V Qz2OQe1YUwoYUxyPlz4dAvy gAZ4OOkzoF7iSYJzG04vOyX 1r8jubXM9yUK5RGvznPR8AE wgDfUxA2jsZVStpX6oD93gU 4jyXTOaaJejKHboGTQqcUI3 YVC1CNKpa1pqFFYxxNNnfYI qSiMaHRagAzb4x2ezHZPuxQ 03kWGqqhK0bHkoNP41AZnkd 5EfINQthDcmKLArwD4ySiJu XGxldmVsbmZjbjIzXGxldmV qyrOgDNyygkMqz0BvslMvtW S0PRougnZigYX2oHcyZDCcY 9M2R096GGvdpzZqgoEhYzVl enf2IWEumNpizGlogYtzewM mGYqkviEmtlOeFrOjjVO9DX baVsNfGwUkxSU8TVpiHpKdb IJ7ILzioIHebKF2FEqnyQH3 RKq0XGt0LQcrGKeqSyw3oAq bxBU2FAwezG1eSIHcP55mYe R2j7cjkQY0eRP5QTtsrZJ9F EgmTiGtE8soTUAehE1mM24p C8ctMKAmvKvvZOdkRRJhuTE 6YTJ3GTYux4mrAXKaySYzxI OvCgMrRSpmAgr7j4npGQNga E33jOShjaI2zFnsMX63KNrr b4LoZQGzcAiiULWjuF4hTqX zXGxldmVsbmZjbjIzXGxldm RzbyWqWLukjzVhm1IkxcUnm PW3EAxpzaHjzDB8lOgfZGGd H9Y2C130GTdwfkJpiiCeHsE ialw3XABytJocuCyowXtyxu YvCRjnpqBqwiQhAkUsxEC8E DdwXvSwQcBwvZU0YPssXpTi dXB4FUuciSGwgXY0WYrozGD 0USb3UDv2YHvaQPzyZxr1hT fjlAQ0HLsqnW4yMIQpU79cV vC3iH52FYvuhWaqdG00PWXf lYKfxNOpqSI0QRthuCweoC2 1LOUheJZlJLpvb7PqODMeWa F0HPD6DBNsbAqspK21QSWff AEcU010tkIkWIktCE37YCYk cGVydzEyMjQwXHBhcGVyaDE 6NAQgRW3kmzuvSXpkUMraST WpyqO6NROvqOGrA7VrNFYaD M7pkxvwAAJ2VZxcFBCkKTE5 WzBhSZSgc0Glpas5LgOgnXb 9i4zoSVAfOJGybObpj5yhVA Q7WYUagZKgA0pwdH5yKVMfC C9nvhugy2xtAQatZMfcHRYd kCL4zfX9HUJhwDQzP7LocW8 hZGLqAOOlljJkpUgkkU9eRp fkusXmKFYkQPJHDlYACa7OS 4rGEVwYQR2HABPvNHQNKVlW XKTPMXYSWWcMP1EAHTqXQwP qFPArCSAkC6sEM9iIJ4aoQo yrZuUzBYhnYOSlStCoE5NjO NQzalkeNIPhDMTMUX5VYRIM ZLWYNi7XODY9RXFlexzmbNE 9MRsgkyAiuRg7tQXwlKuicX 5cYlxmczIyXGNmMSBObyBNY YlwP11ndgRiX5XedPUoRSMa XEsaLP19wVVzXSIhiVNfDBt 1bT1hMFyebXdimrZZnYAhjQ 1lblxiMFxjZjBccGFyXGxpM FxsczBccGFyfQ== [facility] Work Phone: Case Report [facility] Work Phone: Clinical History h9utaGVwSGWcbKKfJKOr M1x jxaCmDBAqiVWsU9PicaapSR amUP8aQV6ewCongUMjsTGrP TMxGzNly7akp480aDScz4ue WUHVbojgcSv3sVagJ17pl8L 2DwbqK6swKPSuZUwxOZLcLJ uitXUmMXj3HFMyxOLtxpJoD zEnSDKhbLUqoCL1MQZtBY3b nngkVHfgEXnuZWXrgnT2STU tuEWuU7RgPAFlXH0hxngiVM C4QRzbDBTuOIJ7FeGqLRDub 9Aacye4SgHaqYs7r8zrLUGi TLQbjLdvo2ktIXK9PHYyjOV kY5tagI3xFQCcXV1xoopbt8 zvOPfwGSpuABWbiNV3qjJ2O FHxjMKyN8MfgN0wHEHgQOWe skPqwHpmyG1xHrHuFVhrHdT gUmVuYWwgdHJhbnNwbGFudC 2kNCPxts3= [facility] Work Phone: For Immediate Release to Patient's [facility] [place] Yes Yes [facility] Work Phone: Gross Description e8mgeHDjRALwvKLeDHJp M1x amtSvGFWvdGPaU9RiezkyVO foFS9eEQ8qdKxjzLFemROvF XFrOhAps0oev830gADlr7vo WNMBjnpexWv8xBgqY58fx5U 2GaywB83dgPZhFBU6HESkUM WgaCBhNISkXQX6SYFelUIhU 9pzOZMfOH0uqxbkLPcuJWba KGNknBM2PQJtcZIuH4FpSCZ vUEorYXFhzzy7WwIfNd3kpE VyeTcyMFxwYXJkXHBsYWluX GZzMjAgTExMIEJBTFxwYXIg EQHhfGGcPWy7QPTwlO5ntKM dkyFwkJGwqK6rcQnbLSuaAW IgMSBUUCBzbGlkZSBQYXAgc 8AguV2qqHFmEYGsouQsuXGi XHBhcn0= [facility] Work Phone: [facility] Work Phone: HEPATIC FUNCTION PANELon Albumin [Mass/Vol] 3.2 g/dL Low 3.5-5.0 [facility] Comment on above: Performed By: #### L EGN #### [facility] (DEFAULT) [address] [place] [address] ALP [Catalytic activity/Vol] 118 U/L Normal 32-126 [facility] Comment on above: Performed By: #### L EGN #### [facility] (DEFAULT) [address] [place] [address] ALT [Catalytic activity/Vol] 25 U/L Normal 10-52 [facility] Comment on above: Performed By: #### L EGN #### [facility] (DEFAULT) [address] [place] [address] AST [Catalytic activity/Vol] 32 U/L Normal 10-39 [facility] Comment on above: Performed By: #### L EGN #### [facility] (DEFAULT) [address] [place] [address] Bilirubin [Mass/Vol] 1.0 mg/dL Normal <1.5 [facility] Comment on above: Performed By: #### L EGN #### [facility] (DEFAULT) [address] [place] [address] Bilirubin.indirect [Mass/Vol] 0.3 mg/dL High <0.3 [facility] Comment on above: Performed By: #### L EGN #### [facility] (DEFAULT) [address] [place] [address] Protein [Mass/Vol] 6.5 g/dL Normal 6.4-8.3 [facility] Comment on above: Performed By: #### L EGN #### [facility] (DEFAULT) [address] [place] [address] Albumin [Mass/Vol] 3.2 g/dL Low 3.5 - 5.0 g/dL [facility] ALP [Catalytic activity/Vol] 118 U/L 32 - 126 U/L [facility] ALT [Catalytic activity/Vol] 25 U/L 10 - 52 U/L [facility] AST [Catalytic activity/Vol] 32 U/L 10 - 39 U/L [facility] Bilirubin [Mass/Vol] 1.0 mg/dL NINF - 1.5 mg/dL [facility] Bilirubin.direct [Mass/Vol] 0.3 mg/dL High NINF - 0.3 mg/dL [facility] Protein [Mass/Vol] 6.5 g/dL 6.4 - 8.3 g/dL [facility] HISTOPLASMA AND BLASTOMYCES ANTIGEN, ENZYME IMMUNOASSAY, SERMon 09-03-2023 Histoplasma/Blastomyc es Ag Result Detected Critically abnormal Not Detected [facility] Histoplasma/Blastomyc es Ag Value 5.3 ng/mL [facility] Interpretation and review of laboratory results Abnormal [facility] IMMUNOPHENOTYPING, TISSUE/FL UIDon 09-03-2023 BKR DX CODE Use Ordering Normal [facility] Comment on above: Order Comment: Pleas e draw at specified interval PRIOR to dose. Do not hold dose to wait for level. Specimens batched twice per day, (M-F) and once per day weekends Method performed is a chemiluminescent microparticle immunoasssay on the [employer] i2000. The range is based on experience at [facility] and users should be aware that target concentrations vary widely depending on concomitant therapy, time post-transplant, and desired degree of immunosuppression. Performed By: #### T ACRO #### [facility] (DEFAULT) [address] [place] [address] Flow Interpretation See Comment Normal [facility] Comment on above: Order Comment: Pleas e draw at specified interval PRIOR to dose. Do not hold dose to wait for level. Specimens batched twice per day, (M-F) and once per day weekends Method performed is a chemiluminescent microparticle immunoasssay on the [employer] i2000. The range is based on experience at [facility] and users should be aware that target concentrations vary widely depending on concomitant therapy, time post-transplant, and desired degree of immunosuppression. Performed By: #### T ACRO #### [facility] (DEFAULT) [address] [place] [address] Flow Interpreted by: Yossi Perla MD, PhD Normal [facility] Comment on above: Order Comment: Pleas e draw at specified interval PRIOR to dose. Do not hold dose to wait for level. Specimens batched twice per day, (M-F) and once per day weekends Method performed is a chemiluminescent microparticle immunoasssay on the [employer] Operator i2000. The range is based on experience at [facility] and users should be aware that target concentrations vary widely depending on concomitant therapy, time post-transplant, and desired degree of immunosuppression. Performed By: #### T ACRO #### [facility] (DEFAULT) [address] [place] [address] MAGNESIUMon 09-03-2023 Magnesium [Mass/Vol] 1.6 mg/dL Normal 1.6-2.6 [facility] Comment on above: Performed By: #### T ACRO #### [facility] (DEFAULT) [address] [place] [address] Interpretation and review of laboratory results Normal [facility] Magnesium [Mass/Vol] 1.6 mg/dL 1.6 - 2 .6 mg/dL [facility] No Panel Informationon 09-03 Interpretation and review of laboratory results Abnormal [facility] PARVOVIRUS (B19) DNA, PCR, B LOODon 09-03-2023 PARVOVIRUS B19 BY RAPID PCR Not detected Not Detected [facility] [place] SPEC SOURCE Whole Blood [facility] Portable XR Chest Viewson RADIOLOGY RADIOLOGY [facility] Radiology Study observation (narrative) [facility] Portable XR Chest ViewsOrder ed By: Lester Grove on 09-03-2023 [facility] Work Phone: XR CHEST PORTABLEon 09-03-20 XR CHEST PORTABLE EXAM: XR CHEST PORTABLE, 09/03/2023 09:06 AM COMPARISON: CT chest from August 31, 2023 and chest radiograph from August 28, 2023. CLINICAL INDICATIONS: hypoxia RELEVANT CLINICAL HISTORY: FINDINGS: (Adequate technique) Implanted Devices: None Thorax: Increasing focal consolidative opacity in the superior segment left lower lobe consolidated pneumonia seen on August [address] Otherwise, stable mild interstitial prominence of the lungs, best appreciated in the lower lung zones. No effusion or pneumothorax. Unremarkable cardiomediastinal silhouette. No interval bone findings. IMPRESSION: Increasing focal consolidation in the left suprahilar region, likely corresponding to pneumonia seen on recent chest CT. I personally viewed and interpreted these images and I have reviewed and approved this report. Normal [facility] ACID FAST CULTUREon 09-02-20 23 Bacteria identified Cx Nom (Unsp spec) NO GROWTH DAY 42 OF 42 Normal [facility] Comment on above: Performed By: #### H EMOGC #### [facility] (DEFAULT) [address] [address] Fluorochrome Stain No acid Fast Bacillu s Seen Normal [facility] Comment on above: Performed By: #### H EMOGC #### [facility] (DEFAULT) [address] [address] Bacteria identified Cx Nom (Unsp spec) NO GROWTH DAY 42 OF 42 Normal [facility] Comment on above: Order Comment: Pleas e draw at specified interval PRIOR to dose. Do not hold dose to wait for level. Specimens batched twice per day, (M-F) and once per day weekends Method performed is a chemiluminescent microparticle immunoasssay on the [employer] i2000. The range is based on experience at [facility] and users should be aware that target concentrations vary widely depending on concomitant therapy, time post-transplant, and desired degree of immunosuppression. Performed By: #### T ACRO #### [facility] (DEFAULT) [address] [address] Fluorochrome Stain No acid Fast Bacillu s Seen Normal [facility] Comment on above: Order Comment: Pleas e draw at specified interval PRIOR to dose. Do not hold dose to wait for level. Specimens batched twice per day, (M-F) and once per day weekends Method performed is a chemiluminescent microparticle immunoasssay on the [employer] i2000. The range is based on experience at [facility] and users should be aware that target concentrations vary widely depending on concomitant therapy, time post-transplant, and desired degree of immunosuppression. Performed By: #### T ACRO #### [facility] (DEFAULT) [address] [address] ASPERGILLUS (GALACTOMANNAN), ANTIGENon 09-02-2023 Galactomannan Ag IA Qn <0.500 NINF [facility] ASPERGILLUS ANTIGEN, BALon 1 Aspergillus Galactomannan Antigen, BAL <0.500 Normal <0.5 [facility] Comment on above: Result Comment: ADDITIONAL INFORMATION This is a qualitative test and the resulted index value is not indicative of disease severity. Serial testing is recommended for patients at high risk for invasive aspergillosis. This assay was performed using the FDA-cleared [employer] Platelia Aspergillus Galactomannan EIA. Test Performed by: [place] [address] Barbering Teacher: Rosendo Bose M.D. Ph.D.; CLIA# [id number] Performed By: #### T ACRO #### [facility] (DEFAULT) [address] [place] [address] Aspergillus Galactomannan Antigen, BAL <0.500 Normal <0.5 [facility] Comment on above: Order Comment: Pleas e draw at specified interval PRIOR to dose. Do not hold dose to wait for level. Specimens batched twice per day, (M-F) and once per day weekends Method performed is a chemiluminescent microparticle immunoasssay on the [employer] i2000. The range is based on experience at [facility] and users should be aware that target concentrations vary widely depending on concomitant therapy, time post-transplant, and desired degree of immunosuppression. Result Comment: ADDITIONAL INFORMATION This is a qualitative test and the resulted index value is not indicative of disease severity. Serial testing is recommended for patients at high risk for invasive aspergillosis. This assay was performed using the FDA-cleared [employer] Platelia Aspergillus Galactomannan EIA. Test Performed by: [facility] [address] [place] [address] Barbering Teacher: Rosendo Bose M.D. Ph.D.; CLIA# [id number] Performed By: #### T ACRO #### [facility] (DEFAULT) [address] [place] [address] ATYPICAL BACTERIAL PNEUMONIA ,PCROrdered By: Shari Contreras on 09-02-2023 B. parapertussis DNA ESTELITA+probe Ql (Unsp spec) Not detected Not Detected [facility] B. pertussis DNA ESTELITA+probe Ql (Unsp spec) Not detected Not Detected [facility] C. pneumoniae DNA ESTELITA+probe Ql (Unsp spec) Not detected Not Detected [facility] Interpretation and review of laboratory results Normal [facility] M. pneumoniae DNA ESTELITA+probe Ql (Unsp spec) Not detected Not Detected [facility] ATYPICAL BACTERIAL PNEUMONIA ,PCRon 09-02-2023 Bordetella Parapertussis Not detected Normal Not Detected [facility] Comment on above: Order Comment: Viral transport media (red screw top with red liquid media) or respiratory fluids or tissue.Results should not be used in conjunction with other clinical and laboratory findings. This result does not rule out co-infections with pathogens that are not screened for by the Respiratory Panel(RP). This RP assay was performed using a Film Array multiplex nucleic acid assay. This test was developed and its performance characteristics determined by [facility]. It has not been cleared or approved by the FDA. The laboratory is required under CLIA as qualified to perform high-complexity testing. This test is used for clinical purposes. It should not be regarded as investigational or for research. Performed By: #### [facility] #### [facility] (DEFAULT) [address] [address] Bordetella Pertussis Not detected Normal Not Detected [facility] Comment on above: Order Comment: Viral transport media (red screw top with red liquid media) or respiratory fluids or tissue.Results should not be used in conjunction with other clinical and laboratory findings. This result does not rule out co-infections with pathogens that are not screened for by the Respiratory Panel(RP). This RP assay was performed using a Film Array multiplex nucleic acid assay. This test was developed and its performance characteristics determined by [facility]. It has not been cleared or approved by the FDA. The laboratory is required under CLIA as qualified to perform high-complexity testing. This test is used for clinical purposes. It should not be regarded as investigational or for research. Performed By: #### [facility] #### [facility] (DEFAULT) [address] [address] Chlamydia Pneumoniae Not detected Normal Not Detected [facility] Comment on above: Order Comment: Viral transport media (red screw top with red liquid media) or respiratory fluids or tissue.Results should not be used in conjunction with other clinical and laboratory findings. This result does not rule out co-infections with pathogens that are not screened for by the Respiratory Panel(RP). This RP assay was performed using a Film Array multiplex nucleic acid assay. This test was developed and its performance characteristics determined by [facility]. It has not been cleared or approved by the FDA. The laboratory is required under CLIA as qualified to perform high-complexity testing. This test is used for clinical purposes. It should not be regarded as investigational or for research. Performed By: #### [facility] #### [facility] (DEFAULT) [address] [address] Mycoplasma Pneumoniae Not detected Normal Not Detected [facility] Comment on above: Order Comment: Viral transport media (red screw top with red liquid media) or respiratory fluids or tissue.Results should not be used in conjunction with other clinical and laboratory findings. This result does not rule out co-infections with pathogens that are not screened for by the Respiratory Panel(RP). This RP assay was performed using a Film Array multiplex nucleic acid assay. This test was developed and its performance characteristics determined by [facility]. It has not been cleared or approved by the FDA. The laboratory is required under CLIA as qualified to perform high-complexity testing. This test is used for clinical purposes. It should not be regarded as investigational or for research. Performed By: #### H EMOGC #### [facility] (DEFAULT) [address] [address] [address] BAL CONSULTon 09-02-2023 ALVEOLAR MACROPHAGES 33 % Normal [facility] Comment on above: Order Comment: BAL c onsultIf > 15% lymphocytes - please send for flow. Performed By: #### H EMOGC #### [facility] (DEFAULT) [address] [address] Bal comments Correlation with microbiology stains and cultures is recommended. Correlation with viral studies is recommended. Normal [facility] Comment on above: Order Comment: BAL c onsultIf > 15% lymphocytes - please send for flow. Performed By: #### H EMOGC #### [facility] (DEFAULT) [address] [address] Bal Diff Quik Stain Quality Check Acceptable Normal [facility] Comment on above: Order Comment: BAL c onsultIf > 15% lymphocytes - please send for flow. Performed By: #### H EMOGC #### [facility] (DEFAULT) [address] [address] Bal Reviewed By: Leonardo Peralta MD [facility] Comment on above: Order Comment: BAL c onsultIf > 15% lymphocytes - please send for flow. Performed By: #### H EMOGC #### [facility] (DEFAULT) [address] [address] BKR BAL INTERPRETATION Cellular specimen comprised of alveolar macrophages and small lymphocytes. No definitive microorganisms are observed. Rare degenerating cells with changes suggestive of viral cytopathic effect are noted. Moderate degenerative changes. Normal [facility] Comment on above: Order Comment: BAL c onsultIf > 15% lymphocytes - please send for flow. Performed By: #### H EMOGC #### [facility] (DEFAULT) [address] [place] [address] BKR DX CODE Use Ordering Normal [facility] Comment on above: Order Comment: BAL c onsultIf > 15% lymphocytes - please send for flow. Performed By: #### H EMOGC #### [facility] (DEFAULT) [address] [place] [address] Eosinophils/100 WBC (Bld) 0 % Normal [facility] Comment on above: Order Comment: BAL c onsultIf > 15% lymphocytes - please send for flow. Performed By: #### H EMOGC #### [facility] (DEFAULT) [address] [place] [address] Lymphocytes/100 WBC (Bld) 49 % Normal [facility] Comment on above: Order Comment: BAL c onsultIf > 15% lymphocytes - please send for flow. Performed By: #### H EMOGC #### [facility] (DEFAULT) [address] [place] [address] Neutrophils/100 WBC (Bld) 18 % Normal [facility] Comment on above: Order Comment: BAL c onsultIf > 15% lymphocytes - please send for flow. Performed By: #### H EMOGC #### [facility] (DEFAULT) [address] [place] [address] ALVEOLAR MACROPHAGES 32 % Normal [facility] Comment on above: Order Comment: BAL c onsult for cell differential and pathologist review. Please do flow cytometry if > 12% lymphocytes Performed By: #### H EMOGC #### [facility] (DEFAULT) [address] [place] [address] Bal comments Correlation with microbiology stains and cultures is recommended. Normal [facility] Comment on above: Order Comment: BAL c onsult for cell differential and pathologist review. Please do flow cytometry if > 12% lymphocytes Performed By: #### H EMOGC #### [facility] (DEFAULT) [address] [address] Bal Diff Quik Stain Quality Check Acceptable [facility] Comment on above: Order Comment: BAL c onsult for cell differential and pathologist review. Please do flow cytometry if > 12% lymphocytes Performed By: #### H EMOGC #### [facility] (DEFAULT) [address] [address] Bal Reviewed By: Leonardo Peralta MD [facility] Comment on above: Order Comment: BAL c onsult for cell differential and pathologist review. Please do flow cytometry if > 12% lymphocytes Performed By: #### H EMOGC #### [facility] (DEFAULT) [address] [address] BKR BAL INTERPRETATION Cellular specimen comprised of alveolar macrophages and small lymphocytes. No definitive microorganisms are observed. Moderate degenerative changes. [facility] Comment on above: Order Comment: BAL c onsult for cell differential and pathologist review. Please do flow cytometry if > 12% lymphocytes Performed By: #### H EMOGC #### [facility] (DEFAULT) [address] [address] BKR DX CODE Use Ordering Normal [facility] Comment on above: Order Comment: BAL c onsult for cell differential and pathologist review. Please do flow cytometry if > 12% lymphocytes Performed By: #### H EMOGC #### [facility] (DEFAULT) [address] [address] Eosinophils/100 WBC (Bld) 0 % [facility] Comment on above: Order Comment: BAL c onsult for cell differential and pathologist review. Please do flow cytometry if > 12% lymphocytes Performed By: #### H EMOGC #### [facility] (DEFAULT) [address] [address] Lymphocytes/100 WBC (Bld) 57 % Normal [facility] Comment on above: Order Comment: BAL c onsult for cell differential and pathologist review. Please do flow cytometry if > 12% lymphocytes Performed By: #### H EMOGC #### [facility] (DEFAULT) [address] [place] [address] Neutrophils/100 WBC (Bld) 11 % Normal [facility] Comment on above: Order Comment: CARRIE ro for cell differential and pathologist review. Please do flow cytometry if > 12% lymphocytes Performed By: #### H EMOGC #### [facility] (DEFAULT) [address] [place] [address] BRONCHOSCOPYon 09-02-2023 Radiology Study observation (narrative) [facility] Bacteria identified Cx Nom ( Bld)on 09-02-2023 Bacteria identified Cx Nom (Unsp spec) NO GROWTH DAY 5 OF 5 [facility] CBC,PLATELETSon 09-02-2023 Hematocrit (Bld) [Volume fraction] 39.9 % Normal 39.6-48.8 [facility] Comment on above: Performed By: #### H EMOGC #### [facility] (DEFAULT) [address] [place] [address] Hemoglobin (Bld) [Mass/Vol] 12.9 g/dL Low 13.4-16.8 [facility] Comment on above: Performed By: #### H EMOGC #### [facility] (DEFAULT) [address] [address] MCV (RBC) [Entitic vol] 86.4 fL Normal 79.0-94.5 [facility] Comment on above: Performed By: #### H EMOGC #### [facility] (DEFAULT) [address] [place] [address] Mean Cell Hgb 27.9 pg Normal 26.1-33.3 [facility] Comment on above: Performed By: #### H EMOGC #### [facility] (DEFAULT) [address] [address] Mean Cell Hgb Conc 32.3 g/dL Normal 31.9-36.5 [facility] Comment on above: Performed By: #### H EMOGC #### [facility] (DEFAULT) [address] [place] [address] Platelet mean volume (Bld) [Entitic vol] 9.5 fL Normal 8.7-12.3 [facility] Comment on above: Performed By: #### H EMOGC #### [facility] (DEFAULT) [address] [place] [address] Platelets (Bld) [#/Vol] 210 10*3/uL Normal 146-337 [facility] Comment on above: Performed By: #### H EMOGC #### [facility] (DEFAULT) [address] [place] [address] RBC (Bld) [#/Vol] 4.62 10*6/uL Normal 4.38-5.83 [facility] Comment on above: Performed By: #### H EMO #### [facility] (DEFAULT) [address] [place] [address] RBC Distribution 13.2 % Normal 10.9-14.3 [facility] Comment on above: Performed By: #### H EMO #### [facility] (DEFAULT) [address] [place] [address] WBC (Bld) [#/Vol] 4.12 10*3/uL Normal 3.73-10.10 [facility] Comment on above: Performed By: #### H EMOGC #### [facility] (DEFAULT) [address] [place] [address] Erythrocyte distribution width (RBC) [Ratio] 13.2 % 10.9 - 14.3 % [facility] Hematocrit (Bld) [Volume fraction] 39.9 % 39.6 - 48.8 % [facility] Hemoglobin (Bld) [Mass/Vol] 12.9 g/dL Low 13.4 - 16.8 g/dL [facility] Interpretation and review of laboratory results Abnormal [facility] MCH (RBC) [Entitic mass] 27.9 pg 26.1 - 33.3 pg [facility] MCHC (RBC) [Mass/Vol] 32.3 g/dL 31.9 - 36.5 g/dL [facility] MCV (RBC) [Entitic vol] 86.4 fL 79.0 - 94.5 fL [facility] Platelet mean volume (Bld) [Entitic vol] 9.5 fL 8.7 - 12.3 fL [facility] Platelets (Bld) [#/Vol] 210 10*3/uL 146 - 337 K/uL [facility] RBC (Bld) [#/Vol] 4.62 10*6/uL [facility] WBC (Bld) [#/Vol] 4.12 10*3/uL 3.73 - 10. 10 K/uL [facility] CHEM 7 (LYTES,BUN,CREA,GLUC) on 09-02-2023 Anion gap [Moles/Vol] 13 mmol/L Normal 7-17 [facility] Comment on above: Performed By: #### Y PNRP #### [facility] (DEFAULT) [address] [address] Chloride [Moles/Vol] 105 mmol/L Normal 98-108 [facility] Comment on above: Performed By: #### Y PNRP #### [facility] (DEFAULT) [address] [place] [address] CO2 [Moles/Vol] 22 mmol/L Normal 21-31 [facility] Comment on above: Performed By: #### Y PNRP #### [facility] (DEFAULT) [address] [address] Creatinine [Mass/Vol] 1.25 mg/dL Normal 0.70-1.30 [facility] Comment on above: Performed By: #### Y PNRP #### [facility] (DEFAULT) [address] [address] GFR/1.73 sq M.predicted among non-blacks MDRD (S/P/Bld) [Vol rate/Area] 69 mL/min/{1.73_m2} Normal >=60 [facility] Comment on above: Result Comment: Repo rted eGFR is based on the CKD-EPI 2020 equation using creatinine, age, and sex. Performed By: #### Y PNRP #### [facility] (DEFAULT) [address] [place] [address] Glucose [Mass/Vol] 105 mg/dL High 70-99 [facility] Comment on above: Performed By: #### Y PNRP #### [facility] (DEFAULT) [address] [place] [address] Osmolality [Osmolality] 287 mosm/kg Normal 278-305 [facility] Comment on above: Performed By: #### Y PNRP #### [facility] (DEFAULT) [address] [place] [address] Potassium [Moles/Vol] 4.3 mmol/L Normal 3.5-5.0 [facility] Comment on above: Performed By: #### Y PNRP #### [facility] (DEFAULT) [address] [place] [address] Sodium [Moles/Vol] 136 mmol/L Normal 135-145 [facility] Comment on above: Performed By: #### Y PNRP #### [facility] (DEFAULT) [address] [place] [address] Urea nitrogen [Mass/Vol] 16 mg/dL Normal 7-25 [facility] Comment on above: Performed By: #### Y PNRP #### [facility] (DEFAULT) [address] [place] [address] Urea nitrogen/Creatinine [Mass ratio] 13 mg/mg Normal [facility] Comment on above: Performed By: #### Y PNRP #### [facility] (DEFAULT) [address] [place] [address] Anion gap [Moles/Vol] 13 mmol/L 7 - 17 mmol/L [facility] Chloride [Moles/Vol] 105 mmol/L 98 - 10 8 mmol/L [facility] CO2 [Moles/Vol] 22 mmol/L 21 - 31 mmol/L [facility] Creatinine [Mass/Vol] 1.25 mg/dL 0.70 - 1.30 mg/dL [facility] eGFR, CKD-EPI, [facility] 69 [facility] Glucose [Mass/Vol] 105 mg/dL High 70 - 99 mg/dL [facility] Osmolality Calc [Osmolality] [address] [facility] [facility] Potassium [Moles/Vol] 4.3 mmol/L 3.5 - 5.0 mmol/L [facility] Sodium [Moles/Vol] 136 mmol/L 135 - 145 mmol/L [facility] Urea nitrogen [Mass/Vol] 16 mg/dL 7 - 25 mg/dL [facility] Urea nitrogen/Creatinine [Mass ratio] 13 mg/mg [facility] CMV PCR,FLUIDS,URINE,EYE ETC on 09-02-2023 CMV by PCR Result Negative Normal Negative [facility] Comment on above: Result Comment: ADDITIONAL INFORMATION This test was developed and its performance characteristics determined by [facility] in a manner consistent with CLIA requirements. This test has not been cleared or approved by the U.S. Food and Drug Administration. Test Performed by: [facility] - [address] [address] Barbering Teacher: Rosendo Bose M.D. Ph.D.; CLIA# [id number] Performed By: #### T ACRO #### [facility] (DEFAULT) [address] [place] [address] CMV BY PCR SOURCE BAL RML Normal [facility] Comment on above: Performed By: #### T ACRO #### [facility] (DEFAULT) [address] [place] [address] CMV by PCR Result Negative Normal Negative [facility] Comment on above: Result Comment: ADDITIONAL INFORMATION This test was developed and its performance characteristics determined by [facility] in a manner consistent with CLIA requirements. This test has not been cleared or approved by the U.S. Food and Drug Administration. Test Performed by: [facility] - [address] [address] Barbering Teacher: Rosendo Bose M.D. Ph.D.; CLIA# [id number] Performed By: #### T ACRO #### [facility] (DEFAULT) [address] [address] CMV BY PCR SOURCE BAL LLL Normal [facility] Comment on above: Performed By: #### T ACRO #### [facility] (DEFAULT) [address] [place] [address] CYTOLOGY, NON-GYNon 09-02-20 CYTOLOGIC DIAGNOSIS [facility] Comment on above: Result Comment: A. B RONCHOALVEOLAR LAVAGE, LEFT LOWER LOBE (CYTOLOGY): FINAL DIAGNOSIS: No Malignant Cells Are Identified Hypocellular Specimen Performed By: #### N RONYGNGRAEMEFROBERTA #### [facility] (DEFAULT) [address] [place] [address] Case Report Normal [facility] Comment on above: Result Comment: [facility] Cytology Report Case: [id number] Authorizing Provider: Crow Diaz MD Collected: 09/02/2023 08:38 AM Ordering Location: [facility] Received: 09/02/2023 10:44 AM Pathologist: Sherice Jimenez MD Specimen: BRONCHOALVEOLAR LAVAGE, LLL BAL Performed By: #### N LITZY #### [facility] (DEFAULT) [address] [address] Clinical History Renal transplant. Normal [facility] Comment on above: Performed By: #### N LITZY #### [facility] (DEFAULT) [address] [address] Gross Description Normal [facility] Comment on above: Result Comment: LLL BAL 1 ml hazy colorless fld unfixed 1 TP slide Pap stain For Immediate Release to Patient's MyChart? Yes Performed By: #### N ONGNNONFNA #### [facility] (DEFAULT) [address] [address] FUNGUS CULTUREon 09-02-2023 Bacteria identified Cx Nom (Unsp spec) Normal [facility] Comment on above: Order Comment: Ident ification was performed on the MALDI-TOF mass spectrometer [employer]. This test was developed by [facility]. It has not been cleared or approved by the FDA. The laboratory is regulated under CLIA as qualified to perform high-complexity testing. This test is used for clinical purposes. It should not be regarded as investigational or for research. Result Comment: [employer] [facility] [place] Histoplasma capsulatum Performed By: #### H EMOGC #### [facility] (DEFAULT) [address] [address] Bacteria identified Cx Nom (Unsp spec) NO GROWTH DAY 28 OF 28 Normal [facility] Comment on above: Order Comment: Pleas e draw at specified interval PRIOR to dose. Do not hold dose to wait for level. Specimens batched twice per day, (M-F) and once per day weekends Method performed is a chemiluminescent microparticle immunoasssay on the [employer] i2000. The range is based on experience at [facility] and users should be aware that target concentrations vary widely depending on concomitant therapy, time post-transplant, and desired degree of immunosuppression. Performed By: #### T ACRO #### [facility] (DEFAULT) [address] [address] HEPATIC FUNCTION PANELon Albumin [Mass/Vol] 3.2 g/dL Low 3.5-5.0 [facility] Comment on above: Performed By: #### Y PNRP #### [facility] (DEFAULT) [address] [place] [address] ALP [Catalytic activity/Vol] 107 U/L Normal 32-126 [facility] Comment on above: Performed By: #### Y PNRP #### [facility] (DEFAULT) [address] [place] [address] ALT [Catalytic activity/Vol] 20 U/L Normal 10-52 [facility] Comment on above: Performed By: #### Y PNRP #### [facility] (DEFAULT) [address] [place] [address] AST [Catalytic activity/Vol] 31 U/L Normal 10-39 [facility] Comment on above: Performed By: #### Y PNRP #### [facility] (DEFAULT) [address] [place] [address] Bilirubin [Mass/Vol] 1.0 mg/dL Normal <1.5 [facility] Comment on above: Performed By: #### Y PNRP #### [facility] (DEFAULT) [address] [place] [address] Bilirubin.indirect [Mass/Vol] 0.3 mg/dL High <0.3 [facility] Comment on above: Performed By: #### Y PNRP #### [facility] (DEFAULT) [address] [place] [address] Protein [Mass/Vol] 6.6 g/dL Normal 6.4-8.3 [facility] Comment on above: Performed By: #### Y PNRP #### [facility] (DEFAULT) [address] [place] [address] Albumin [Mass/Vol] 3.2 g/dL Low 3.5 - 5.0 g/dL [facility] ALP [Catalytic activity/Vol] 107 U/L 32 - 126 U/L [facility] ALT [Catalytic activity/Vol] 20 U/L 10 - 52 U/L [facility] AST [Catalytic activity/Vol] 31 U/L 10 - 39 U/L [facility] Bilirubin [Mass/Vol] 1.0 mg/dL NINF - 1.5 mg/dL [facility] Bilirubin.direct [Mass/Vol] 0.3 mg/dL High NINF - 0.3 mg/dL [facility] Protein [Mass/Vol] 6.6 g/dL 6.4 - 8.3 g/dL [facility] HISTOPLASMA ANTIGEN, FLUIDon 09-02-2023 FH SOURCE BAL RML Normal [facility] Comment on above: Performed By: #### T ACRO #### [facility] (DEFAULT) [address] [address] Histo FLD interpretation Negative Normal [facility] Comment on above: Result Comment: ADDITIONAL INFORMATION Reference interval: None Detected Reportable Range: Positive Results reported in ng/mL from 0.20 ng/mL to 20.00 ng/mL Positive Results above 20.00 ng/mL are reported as 'Above the Limit of Quantification' Cross-reactions occur with Blastomyces spp., Coccidioides spp., and Paracoccidioides brasiliensis. This test was developed and its performance characteristics determined by [facility]. It has not been cleared or approved by the FDA; however, FDA clearance or approval is not currently required for clinical use. The results are not intended to be used as the sole means for clinical diagnosis or patient management decisions. Test Performed by: [facility] [address] [place] [address] Performed By: #### T ACRO #### [facility] (DEFAULT) [address] [address] Histoplasma Antigen, FLUID Not detected Normal [facility] Comment on above: Performed By: #### T ACRO #### [facility] (DEFAULT) [address] [place] [address] HISTOPLASMA ANTIGEN,URINEon 09-02-2023 H. capsulatum Ag (U) [Mass/Vol] Not detected ng/mL [facility] H. capsulatum Ag IA Ql (U) Not detected Not Detected [facility] HISTOPLASMA CAPSULATUM/BLAST OMYCES SPECIES,PCR FLUIDon 09-02-2023 HISTO/BLASTO RESULT Negative Normal Not Applicable [facility] Comment on above: Result Comment: A Ne gative result from BAL fluid does not rule out the presence of Histoplasma capsulatum because the sensitivity from this source is suboptimal. ADDITIONAL INFORMATION This test was developed and its performance characteristics determined by [facility] in a manner consistent with CLIA requirements. This test has not been cleared or approved by the U.S. Food and Drug Administration. Test Performed by: [address] [address] Barbering Teacher: Rosendo Bose M.D. Ph.D.; CLIA# [id number] Performed By: #### T ACRO #### [facility] (DEFAULT) [address] [address] Source BAL RML Normal [facility] Comment on above: Performed By: #### T ACRO #### [facility] (DEFAULT) [address] [address] HIV 1 AND 2 ANTIBODIES/P24 A NTIGENOrdered By: Wilma Luque on 09-02-2023 HIV 1+2 Ab+HIV1 p24 Ag IA Ql Non-Reactive Non Reactive [facility] Interpretation and review of laboratory results Normal [facility] HIV 1 AND 2 ANTIBODIES/P24 A NTIGENon 09-02-2023 HIV-1/HIV-2 Ab With p24 Antigen Non-Reactive Normal Non Reactive [facility] Comment on above: Performed By: #### L [id number] ####[facility] (DEFAULT)[address] [address] LEGIONELLA CULTUREon 023 Bacteria identified Cx Nom (Unsp spec) NO GROWTH DAY 7 OF 7 Normal [facility] Comment on above: Performed By: #### H EMO #### [facility] (DEFAULT) [address] [place] [address] Bacteria identified Cx Nom (Unsp spec) NO GROWTH DAY 7 OF 7 Normal [facility] Comment on above: Order Comment: BAL l egionella culture Performed By: #### L EGN #### [facility] (DEFAULT) [address] [address] LEGIONELLA PCRon 09-02-2023 Legionella species, Culture BAL RML Normal [facility] Comment on above: Performed By: #### T ACRO #### [facility] (DEFAULT) [address] [address] Legionella, pcr result Negative Normal Not Applicable [facility] Comment on above: Result Comment: ADDITIONAL INFORMATION This test was developed and its performance characteristics determined by [facility] in a manner consistent with CLIA requirements. This test has not been cleared or approved by the U.S. Food and Drug Administration. Test Performed by: [facility] - [address] [address] Barbering Teacher: Rosendo Bose M.D. Ph.D.; CLIA# [id number] Performed By: #### T ACRO #### [facility] (DEFAULT) [address] [place] [address] LOWER RESPIRATORY CULTURE, B ACTERIALon 09-02-2023 Bacteria identified Cx Nom (Unsp spec) NO GROWTH DAY 2 OF 2 Normal [facility] Comment on above: Performed By: #### T ACRO #### [facility] (DEFAULT) [address] [address] Microscopic observation Gram stain Nom (Unsp spec) [facility] Comment on above: Result Comment: Cyto centrifuge preparation Neutrophils, Rare Red Blood Cells Present No organisms seen Performed By: #### T ACRO #### [facility] (DEFAULT) [address] [place] [address] Bacteria identified Cx Nom (Unsp spec) NO GROWTH DAY 2 OF 2 Normal [facility] Comment on above: Order Comment: BAL b acterial respiratory culture Performed By: #### H EMOGC #### [facility] (DEFAULT) [address] [place] [address] Microscopic observation Gram stain Nom (Unsp spec) Normal [facility] Comment on above: Order Comment: BAL b acterial respiratory culture Result Comment: Cyto centrifuge preparation Neutrophils, Moderate Red Blood Cells Present No organisms seen Performed By: #### H EMO #### [facility] (DEFAULT) [address] [place] [address] MAGNESIUMon 09-02-2023 Magnesium [Mass/Vol] 1.7 mg/dL Normal 1.6-2.6 [facility] Comment on above: Performed By: #### L EGN #### [facility] (DEFAULT) [address] [place] [address] Interpretation and review of laboratory results Normal [facility] Magnesium [Mass/Vol] 1.7 mg/dL 1.6 - 2 .6 mg/dL [facility] No Panel Informationon 09-02 Interpretation and review of laboratory results Abnormal [facility] PNEUMOCYSTIS JIROVECI,PCRon 09-02-2023 PN Report Status DNR Normal [facility] Comment on above: Performed By: #### T ACRO #### [facility] (DEFAULT) [address] [place] [address] PN Specimen Source BAL RML Normal [facility] Comment on above: Performed By: #### T ACRO #### [facility] (DEFAULT) [address] [place] [address] Pneum jiroveci comment DNR Normal [facility] Comment on above: Performed By: #### T ACRO #### [facility] (DEFAULT) [address] [address] Pneumocystis jiroveci,PCR result Negative Normal Not Applicable [facility] Comment on above: Result Comment: ADDITIONAL INFORMATION This test was developed and its performance characteristics determined by [facility] in a manner consistent with CLIA requirements. This test has not been cleared or approved by the U.S. Food and Drug Administration. Test Performed by: [facility] [place] [address] Barbering Teacher: Rosendo Bose M.D. Ph.D.; CLIA# [id number] Performed By: #### T ACRO #### [facility] (DEFAULT) [address] [address] PN Report Status DNR Normal [facility] Comment on above: Performed By: #### Y PNRP #### [facility] (DEFAULT) [address] [address] PN Specimen Source BAL LLL Normal [facility] Comment on above: Performed By: #### Y PNRP #### [facility] (DEFAULT) [address] [address] Pneum jiroveci comment DNR Normal [facility] Comment on above: Performed By: #### Y PNRP #### [facility] (DEFAULT) [address] [address] Pneumocystis jiroveci,PCR result Negative Normal Not Applicable [facility] Comment on above: Result Comment: ADDITIONAL INFORMATION This test was developed and its performance characteristics determined by [facility] in a manner consistent with CLIA requirements. This test has not been cleared or approved by the U.S. Food and Drug Administration. Test Performed by: [place] [address] Barbering Teacher: Rosendo Bose M.D. Ph.D.; [facility]# [id number] Performed By: #### Y [facility] #### [facility] (DEFAULT) [address] [address] TACROLIMUS LEVEL, TROUGH (OH E DRUG LEVEL)on 09-02-2023 Interpretation and review of laboratory results Normal [facility] Tacrolimus (Bld) [Mass/Vol] 4.2 ng/mL [facility] Tacrolimus, Trough 4.2 ng/mL Normal [facility] Susana ow Transplant: 4.0-12.0, Therapeutic: 5.0-15.0 [facility] Comment on above: Order Comment: Pleas e draw at specified interval PRIOR to dose. Do not hold dose to wait for level. Specimens batched twice per day, (M-) and once per day weekends Method performed is a chemiluminescent microparticle immunoasssay on the [employer] i2000. The range is based on experience at [facility] and users should be aware that target concentrations vary widely depending on concomitant therapy, time post-transplant, and desired degree of immunosuppression. Performed By: #### T ACRO #### [facility] (DEFAULT) [address] [address] CBC,PLATELETSon 09-01-2023 Hematocrit (Bld) [Volume fraction] 38.9 % Low 39.6-48.8 [facility] Comment on above: Performed By: #### H [facility] #### [facility] (DEFAULT) [address] [address] Hemoglobin (Bld) [Mass/Vol] 12.7 g/dL Low 13.4-16.8 [facility] Comment on above: Performed By: #### H EMO #### [facility] (DEFAULT) [address] [address] MCV (RBC) [Entitic vol] 84.6 fL Normal 79.0-94.5 [facility] Comment on above: Performed By: #### H EMOGC #### [facility] (DEFAULT) [address] [place] [address] Mean Cell Hgb 27.6 pg Normal 26.1-33.3 [facility] Comment on above: Performed By: #### H EMOGC #### [facility] (DEFAULT) [address] [address] Mean Cell Hgb Conc 32.6 g/dL Normal 31.9-36.5 [facility] Comment on above: Performed By: #### H EMOGC #### [facility] (DEFAULT) [address] [place] [address] Platelet mean volume (Bld) [Entitic vol] 9.4 fL Normal 8.7-12.3 [facility] Comment on above: Performed By: #### H EMOGC #### [facility] (DEFAULT) [address] [address] Platelets (Bld) [#/Vol] 209 10*3/uL Normal 146-337 [facility] Comment on above: Performed By: #### H EMOGC #### [facility] (DEFAULT) [address] [address] RBC (Bld) [#/Vol] 4.60 10*6/uL Normal 4.38-5.83 [facility] Comment on above: Performed By: #### H EMOGC #### [facility] (DEFAULT) [address] [address] RBC Distribution 13.4 % Normal 10.9-14.3 [facility] Comment on above: Performed By: #### H EMOGC #### [facility] (DEFAULT) [address] [address] WBC (Bld) [#/Vol] 4.41 10*3/uL Normal 3.73-10.10 [facility] Comment on above: Performed By: #### H EMOGC #### [facility] (DEFAULT) [address] [address] Erythrocyte distribution width (RBC) [Ratio] 13.4 % 10.9 - 14.3 % [facility] Hematocrit (Bld) [Volume fraction] 38.9 % Low 39.6 - 48.8 % [facility] Hemoglobin (Bld) [Mass/Vol] 12.7 g/dL Low 13.4 - 16.8 g/dL [facility] Interpretation and review of laboratory results Abnormal [facility] MCH (RBC) [Entitic mass] 27.6 pg 26.1 - 33.3 pg [facility] MCHC (RBC) [Mass/Vol] 32.6 g/dL 31.9 - 36.5 g/dL [facility] MCV (RBC) [Entitic vol] 84.6 fL 79.0 - 94.5 fL [facility] Platelet mean volume (Bld) [Entitic vol] 9.4 fL 8.7 - 12.3 fL [facility] Platelets (Bld) [#/Vol] 209 10*3/uL 146 - 337 K/uL [facility] RBC (Bld) [#/Vol] 4.60 10*6/uL [facility] WBC (Bld) [#/Vol] 4.41 10*3/uL 3.73 - 10. 10 K/uL [facility] CHEM 7 (LYTES,BUN,CREA,GLUC) on 09-01-2023 Anion gap [Moles/Vol] 14 mmol/L Normal 7-17 [facility] Comment on above: Performed By: ###Walter UNDERWOOD #### [facility] (DEFAULT) [address] [place] [address] Chloride [Moles/Vol] 103 mmol/L Normal 98-108 [facility] Comment on above: Performed By: ###Walter UNDERWOOD #### [facility] (DEFAULT) [address] [place] [address] CO2 [Moles/Vol] 21 mmol/L Normal 21-31 [facility] Comment on above: Performed By: ###Walter UNDERWOOD #### [facility] (DEFAULT) [address] [place] [address] Creatinine [Mass/Vol] 1.16 mg/dL Normal 0.70-1.30 [facility] Comment on above: Performed By: #### Vale UNDERWOOD #### [facility] (DEFAULT) [address] [place] [address] GFR/1.73 sq M.predicted among non-blacks MDRD (S/P/Bld) [Vol rate/Area] 76 mL/min/{1.73_m2} Normal >=60 [facility] Comment on above: Result Comment: Repo rted eGFR is based on the CKD-EPI 2020 equation using creatinine, age, and sex. Performed By: ###Walter UNDERWOOD #### [facility] (DEFAULT) [address] [place] [address] Glucose [Mass/Vol] 117 mg/dL High 70-99 [facility] Comment on above: Performed By: #### Vale UNDERWOOD #### [facility] (DEFAULT) [address] [place] [address] Osmolality [Osmolality] 285 mosm/kg Normal 278-305 [facility] Comment on above: Performed By: ###Walter UNDERWOOD #### [facility] (DEFAULT) [address] [place] [address] Potassium [Moles/Vol] 4.2 mmol/L Normal 3.5-5.0 [facility] Comment on above: Performed By: #### Vale UNDERWOOD #### [facility] (DEFAULT) [address] [place] [address] Sodium [Moles/Vol] 134 mmol/L Low 135-145 [facility] Comment on above: Performed By: #### Vale UNDERWOOD #### [facility] (DEFAULT) [address] [place] [address] Urea nitrogen [Mass/Vol] 18 mg/dL Normal 7-25 [facility] Comment on above: Performed By: #### G YASMINE #### [facility] (DEFAULT) [address] [place] [address] Urea nitrogen/Creatinine [Mass ratio] 16 mg/mg Normal [facility] Comment on above: Performed By: #### G YASMINE #### [facility] (DEFAULT) [address] [place] [address] Anion gap [Moles/Vol] 14 mmol/L 7 - 17 mmol/L [facility] Chloride [Moles/Vol] 103 mmol/L 98 - 10 8 mmol/L [facility] CO2 [Moles/Vol] 21 mmol/L 21 - 31 mmol/L [facility] Creatinine [Mass/Vol] 1.16 mg/dL 0.70 - 1.30 mg/dL [facility] eGFR, CKD-EPI, Male 76 - PINF [facility] Glucose [Mass/Vol] 117 mg/dL High 70 - 99 mg/dL [facility] Osmolality Calc [Osmolality] 285 [facility] Potassium [Moles/Vol] 4.2 mmol/L 3.5 - 5.0 mmol/L [facility] Sodium [Moles/Vol] 134 mmol/L Low 135 - 145 mmol/L [facility] Urea nitrogen [Mass/Vol] 18 mg/dL 7 - 25 mg/dL [facility] Urea nitrogen/Creatinine [Mass ratio] 16 mg/mg [facility] CRYPTOCOCCAL ANTIGENon 09-01 Cryptococcus Antigen,Serum Negative Normal Negative [facility] Comment on above: Performed By: #### H EMO #### [facility] (DEFAULT) [address] [place] [address] Cryptococcus sp Ag Ql (S) Negative Negative [facility] Interpretation and review of laboratory results Normal [facility] HEPATIC FUNCTION PANELon Albumin [Mass/Vol] 3.3 g/dL Low 3.5-5.0 [facility] Comment on above: Performed By: #### C HM7, MGO, HFP ####[facility] (DEFAULT)[address] [place] [address] ALP [Catalytic activity/Vol] 112 U/L Normal 32-126 [facility] Comment on above: Performed By: #### C HM7, MGO, HFP ####[facility] (DEFAULT)[address] [place] [address] ALT [Catalytic activity/Vol] 21 U/L Normal 10-52 [facility] Comment on above: Performed By: #### C HM7, MGO, HFP ####[facility] (DEFAULT)[address] [place] [address] AST [Catalytic activity/Vol] 29 U/L Normal 10-39 [facility] Comment on above: Performed By: #### C HM7, MGO, HFP ####[facility] (DEFAULT)[address] [place] [address] Bilirubin [Mass/Vol] 1.0 mg/dL Normal <1.5 [facility] Comment on above: Performed By: #### C HM7, MGO, HFP ####[facility] (DEFAULT)[address] [place] [address] Bilirubin.indirect [Mass/Vol] 0.2 mg/dL Normal <0.3 [facility] Comment on above: Performed By: #### C HM7, MGO, HFP ####[facility] (DEFAULT)[address] [place] [address] Protein [Mass/Vol] 6.8 g/dL Normal 6.4-8.3 [facility] Comment on above: Performed By: #### C HM7, MGO, HFP ####[facility] (DEFAULT)[address] [place] [address] Albumin [Mass/Vol] 3.3 g/dL Low 3.5 - 5.0 g/dL [facility] ALP [Catalytic activity/Vol] 112 U/L 32 - 126 U/L [facility] ALT [Catalytic activity/Vol] 21 U/L 10 - 52 U/L [facility] AST [Catalytic activity/Vol] 29 U/L 10 - 39 U/L [facility] Bilirubin [Mass/Vol] 1.0 mg/dL NINF - 1.5 mg/dL [facility] Bilirubin.direct [Mass/Vol] 0.2 mg/dL NINF - 0.3 mg/dL [facility] Protein [Mass/Vol] 6.8 g/dL 6.4 - 8.3 g/dL [facility] L. pneumophila 1 Ag IA Ql (U )Ordered By: Carolin Miles on 09-01-2023 Interpretation and review of laboratory results Normal [facility] LEGIONELLA URINARY AGOrdered By: Carolin Miles on 09-01-2023 L. pneumophila 1 Ag IA Ql (U) Negative Negative [facility] MAGNESIUMon 09-01-2023 Magnesium [Mass/Vol] 1.6 mg/dL Normal 1.6-2.6 [facility] Comment on above: Performed By: #### G YASMINE #### [facility] (DEFAULT) [address] [place] [address] Interpretation and review of laboratory results Normal [facility] Magnesium [Mass/Vol] 1.6 mg/dL 1.6 - 2 .6 mg/dL [facility] No Panel Informationon 09-01 Interpretation and review of laboratory results Abnormal [facility] PARVOVIRUS (B19) DNA, PCR, B LOODon 09-01-2023 PARVOVIRUS B19 BY RAPID PCR Not detected Normal Not Detected [facility] Comment on above: Result Comment: The primers/probe used in this assay will detect parvovirus B19 and V9 (genotypes 1 # 3) but may not detect parvovirus genotype 2. The majority of circulating Parvovirus B19 strains in the [facility] are genotype 1. Genotype 2 is not believed to circulate widely in the [place], but has been associated with similar clinical features as genotype 1. Genotype 3 is most prevalent in some countries. This test was developed and its analytical performance characteristics have been determined by [email or web address] [place], [place]. It has not been cleared or approved by the FDA. This assay has been validated pursuant to the CLIA regulations and is used for clinical purposes. Test Performed at: [email or web address] [address] [place], [place] Ramon Benavides M.D., Ph.D.,Director of Laboratories Performed By: #### Vale UNDERWOOD #### [facility] (DEFAULT) [address] [place] [address] [place] SPEC SOURCE Whole Blood Normal [facility] Comment on above: Performed By: #### Vale UNDERWOOD #### [facility] (DEFAULT) [address] [place] [address] ASPERGILLUS (GALACTOMANNAN), ANTIGENon 08-31-2023 Aspergillus Antigen <0.500 Normal <0.5 [facility] Comment on above: Result Comment: ADDITIONAL INFORMATION This is a qualitative test and the resulted index value is not indicative of disease severity. Serial testing is recommended for patients at high risk for invasive aspergillosis. This assay was performed using the FDA-cleared [employer] Platelia Aspergillus Galactomannan EIA. Test Performed by: [address] [address] Barbering Teacher: Rosendo Bose M.D. Ph.D.; CLIA# [id number] Performed By: #### Y PNRP #### [facility] (DEFAULT) [address] [place] [address] CBC,PLATELETSon 08-31-2023 Hematocrit (Bld) [Volume fraction] 39.4 % Low 39.6-48.8 [facility] Comment on above: Performed By: #### T ACRO #### [facility] (DEFAULT) [address] [place] [address] Hemoglobin (Bld) [Mass/Vol] 12.8 g/dL Low 13.4-16.8 [facility] Comment on above: Performed By: #### T ACRO #### [facility] (DEFAULT) [address] [place] [address] MCV (RBC) [Entitic vol] 85.1 fL Normal 79.0-94.5 [facility] Comment on above: Performed By: #### T ACRO #### [facility] (DEFAULT) [address] [place] [address] Mean Cell Hgb 27.6 pg Normal 26.1-33.3 [facility] Comment on above: Performed By: #### T ACRO #### [facility] (DEFAULT) [address] [place] [address] Mean Cell Hgb Conc 32.5 g/dL Normal 31.9-36.5 [facility] Comment on above: Performed By: #### T ACRO #### [facility] (DEFAULT) [address] [place] [address] Platelet mean volume (Bld) [Entitic vol] 9.6 fL Normal 8.7-12.3 [facility] Comment on above: Performed By: #### T ACRO #### [facility] (DEFAULT) [address] [address] Platelets (Bld) [#/Vol] 228 10*3/uL Normal 146-337 [facility] Comment on above: Performed By: #### T ACRO #### [facility] (DEFAULT) [address] [place] [address] RBC (Bld) [#/Vol] 4.63 10*6/uL Normal 4.38-5.83 [facility] Comment on above: Performed By: #### T ACRO #### [facility] (DEFAULT) [address] [place] [address] RBC Distribution 13.3 % Normal 10.9-14.3 [facility] Comment on above: Performed By: #### T ACRO #### [facility] (DEFAULT) [address] [place] [address] WBC (Bld) [#/Vol] 4.77 10*3/uL Normal 3.73-10.10 [facility] Comment on above: Performed By: #### T ACRO #### [facility] (DEFAULT) [address] [place] [address] Erythrocyte distribution width (RBC) [Ratio] 13.3 % 10.9 - 14.3 % [facility] Hematocrit (Bld) [Volume fraction] 39.4 % Low 39.6 - 48.8 % [facility] Hemoglobin (Bld) [Mass/Vol] 12.8 g/dL Low 13.4 - 16.8 g/dL [facility] Interpretation and review of laboratory results Abnormal [facility] MCH (RBC) [Entitic mass] 27.6 pg 26.1 - 33.3 pg [facility] MCHC (RBC) [Mass/Vol] 32.5 g/dL 31.9 - 36.5 g/dL [facility] MCV (RBC) [Entitic vol] 85.1 fL 79.0 - 94.5 fL [facility] Platelet mean volume (Bld) [Entitic vol] 9.6 fL 8.7 - 12.3 fL [facility] Platelets (Bld) [#/Vol] 228 10*3/uL 146 - 337 K/uL [facility] RBC (Bld) [#/Vol] 4.63 10*6/uL [facility] WBC (Bld) [#/Vol] 4.77 10*3/uL 3.73 - 10. 10 K/uL [facility] CHEM 7 (LYTES,BUN,CREA,GLUC) on 08-31-2023 Anion gap [Moles/Vol] 13 mmol/L Normal 7-17 [facility] Comment on above: Performed By: #### T ACRO #### [facility] (DEFAULT) [address] [place] [address] Chloride [Moles/Vol] 102 mmol/L Normal 98-108 [facility] Comment on above: Performed By: #### T ACRO #### [facility] (DEFAULT) [address] [place] [address] CO2 [Moles/Vol] 23 mmol/L Normal 21-31 [facility] Comment on above: Performed By: #### T ACRO #### [facility] (DEFAULT) [address] [place] [address] Creatinine [Mass/Vol] 1.37 mg/dL High 0.70-1.30 [facility] Comment on above: Performed By: #### T ACRO #### [facility] (DEFAULT) [address] [place] [address] GFR/1.73 sq M.predicted among non-blacks MDRD (S/P/Bld) [Vol rate/Area] 62 mL/min/{1.73_m2} Normal >=60 [facility] Comment on above: Result Comment: Repo rted eGFR is based on the CKD-EPI 2020 equation using creatinine, age, and sex. Performed By: #### T ACRO #### [facility] (DEFAULT) [address] [place] [address] Glucose [Mass/Vol] 112 mg/dL High 70-99 [facility] Comment on above: Performed By: #### T ACRO #### [facility] (DEFAULT) [address] [place] [address] Osmolality [Osmolality] 284 mosm/kg Normal 278-305 [facility] Comment on above: Performed By: #### T ACRO #### [facility] (DEFAULT) [address] [place] [address] Potassium [Moles/Vol] 4.4 mmol/L Normal 3.5-5.0 [facility] Comment on above: Performed By: #### T ACRO #### [facility] (DEFAULT) [address] [place] [address] Sodium [Moles/Vol] 134 mmol/L Low 135-145 [facility] Comment on above: Performed By: #### T ACRO #### [facility] (DEFAULT) [address] [place] [address] Urea nitrogen [Mass/Vol] 16 mg/dL Normal 7-25 [facility] Comment on above: Performed By: #### T ACRO #### [facility] (DEFAULT) [address] [place] [address] Urea nitrogen/Creatinine [Mass ratio] 12 mg/mg Normal [facility] Comment on above: Performed By: #### T ACRO #### [facility] (DEFAULT) [address] [place] [address] Anion gap [Moles/Vol] 13 mmol/L 7 - 17 mmol/L [facility] Chloride [Moles/Vol] 102 mmol/L 98 - 10 8 mmol/L [facility] CO2 [Moles/Vol] 23 mmol/L 21 - 31 mmol/L [facility] Creatinine [Mass/Vol] 1.37 mg/dL High 0.70 - 1.30 mg/dL [facility] eGFR, CKD-EPI, [facility] 62 - [facility]F [facility] Glucose [Mass/Vol] 112 mg/dL High 70 - 99 mg/dL [facility] Osmolality Calc [Osmolality] 284 [facility] Potassium [Moles/Vol] 4.4 mmol/L 3.5 - 5.0 mmol/L [facility] Sodium [Moles/Vol] 134 mmol/L Low 135 - 145 mmol/L [facility] Urea nitrogen [Mass/Vol] 16 mg/dL 7 - 25 mg[facility] Urea nitrogen/Creatinine [Mass ratio] 12 mg[facility] ABDOMEN/PELVIS WITHOUT CO NTRASTon 08-31-2023 CT ABDOMEN/PELVIS WITHOUT CONTRAST EXAM: CT ABDOMEN/PELVIS WITHOUT CONTRAST, 08/31/2023 11:26 AM COMPARISON: CT abdomen/pelvis dated June 27, 2022. CLINICAL INDICATIONS: FUO in immunosupressed patient. s/p kidney transplant, u/s with c/f stones, please evaluate for stones; Please ensure whole transplanted kidney and bladder are included; TECHNIQUE: CT scanning of the abdomen and pelvis was performed without the administration of intravenous contrast. PROTOCOL: Standard. CONTRAST: None FINDINGS: Lung Bases: Please see dedicated chest CT scan of the same date for full description of the intra-thoracic contents. Some groundglass attenuation in the posterior lung bases with subpleural atelectatic changes. Atherosclerotic changes with wall calcifications in the distal thoracic aorta and the coronary arteries. No hiatal hernia ABDOMEN Limited evaluation of the solid organs and vasculature due to lack of intravenous contrast. Liver: Prior liver transplant. Transplant liver is stable in size and morphology. No focal lesions on this noncontrast study. No ascites or peritransplant fluid collections. Prominent perigastric collateral vessels, similar to prior. No definite intrahepatic biliary ductal dilatation within the transplant liver Biliary/Gallbladder: Prior cholecystectomy. The biliary tree is nondilated. Spleen: Splenomegaly measuring up to 15.0 cm. No gross focal splenic lesions or perisplenic collections Pancreas: Pancreas shows no discrete focal lesions or ductal dilatation. Some volume loss and mild fatty replacement in the pancreatic parenchyma There are no peripancreatic inflammatory changes or fluid collections. Adrenals: Adrenal glands are unremarkable. Kidneys: The [place] kidneys are atrophic. No stones or hydronephrosis. No focal lesions noted within the [place] kidneys on this noncontrast study. Renovascular calcifications on the right side Right lower quadrant transplant kidney is unremarkable. Interval removal of nephrostomy tube. No stones or hydronephrosis. No peritransplant fluid collections around the transplant kidney Retroperitoneal/Vascula ture: New borderline enlarged upper abdominal and retroperitoneal nodes lymph nodes as follows: * Inferior diaphragmatic lymph node measures 1.1 x 1.2 cm (series 1 image 32), previously 0.7 x 1.2 cm. * Periportal lymph node measures 1.2 x 1.8 cm (series 1 image 47), previously 0.7 x 1.6 cm. * Precaval lymph node measures 1.1 x 1.8 cm (series 1 image 64), previously 0.9 x 1.4 cm. * Aortocaval lymph node measures 1.1 x 1.7 cm (series 1 image 67), previously 0.6 x 0.8 cm. Moderate atherosclerosis of the abdominal aorta and its distal branches. Visualized psoas muscles are symmetric Multiple left retroperitoneal collaterals with prominent gastric collaterals are seen likely secondary to portal hypertension Gastrointestinal/Mesent katie: Stomach is partly distended with food residue and fluid limiting detailed evaluation. Multiple perigastric collaterals are seen. The small bowel loops are non-dilated without wall thickening or mass. Appendix is unremarkable. Minimal colonic diverticulosis without acute diverticulitis. Normal appendix. PELVIS Bladder: The bladder is distended with no gross mass lesions or calculi. Subtle urinary bladder wall thickening Genital: The prostate and seminal vesicles are unremarkable. No pelvic free fluid or any collections. Vascular calcifications in the pelvis. Small bilateral inguinal hernias containing fat. No discrete enlarged pelvic or inguinal nodes Other: Fat-containing umbilical hernia. Bilateral fat-containing inguinal hernias. Bony Structures: Grade 1 retrolisthesis of L5 on S1. Schmorl's nodes at T12 and L4. Small scattered lucencies throughout the pelvis and proximal femurs, similar to prior. No suspicious osseous lesion. IMPRESSION: 1. Interval removal of nephrostomy tube from right lower quadrant transplant kidney. No stones or hydronephrosis. 2. New prominent to borderline enlarged upper abdominal and retroperitoneal nodes lymph nodes as above, which are nonspecific but may be secondary to a lymphoproliferative disorder or granulomatous process.. Recommend clinical correlation. 3. Prior liver transplant without focal hepatic lesion. No ascites or peritransplant fluid collections. Prominent perigastric collateral vessels, similar to prior. 4. Groundglass attenuation in the lung bases with the basilar atelectatic changes 5. Nonobstructive bowel gas pattern. Normal appendix 6. No abdominopelvic ascites. I personally viewed and interpreted these images and I have reviewed and approved this report. Normal [facility] CT Abdomen and Pelvis WO con traston 08-31-2023 RADIOLOGY RADIOLOGY [facility] Radiology Study observation (narrative) [facility] CT Abdomen and Pelvis WO con trastOrdered By: Chavez Larkin on 08-31-2023 [facility] Work Phone: CT CHEST WITHOUT CONTRASTon 08-31-2023 CT CHEST WITHOUT CONTRAST EXAM: CT CHEST WITHOUT CONTRAST, 08/31/2023 11:25 AM COMPARISON: No Available Comparisons. CLINICAL INDICATIONS: FUO, cough, desaturations in immunosupressed patient; RELEVANT CLINICAL HISTORY: TECHNIQUE: CT images of the chest were obtained without intravenous contrast. FINDINGS: Lungs and Pleura: Dependent atelectasis. Consolidative opacity in the superior segment of the left lower lobe with adjacent mild thickening/trace fluid of the major fissure. Innumerable punctate centrilobular nodules diffusely throughout the lungs. Tracheobronchial tree: No abnormality. Mediastinum/Susan: A few mildly enlarged AP window lymph nodes, series 3 image 26, likely reactive. Axilla and Supraclavicular Regions: No axillary or supraclavicular adenopathy. Cardiovascular: Heart is normal in size. Trace pericardial effusion. Dense calcifications in the coronary arteries with atherosclerosis scattered in the aorta and branch vessels. Central pulmonary arteries are normal in caliber. Upper Abdomen: A CT Abdomen and Pelvis was concurrently performed and separately dictated. Bones and Soft Tissue: Schmorl's node in superior T12 endplate. Mild bilateral gynecomastia. IMPRESSION: 1. Superior segment of the left lower lobe consolidative pneumonia with trace fluid or mild thickening of the adjacent minor fissure. 2. Innumerable punctate centrilobular nodules throughout both lungs are likely infectious as well in an immunocompromised patient. 3. Few mildly enlarged lymph nodes in the AP window are likely reactive. 4. Coronary artery disease. Normal [facility] CT Chest WO contraston 08-31 RADIOLOGY RADIOLOGY [facility] Radiology Study observation (narrative) [facility] CT Chest WO contrastOrdered By: Daisha Patterson on 08-31-2023 [facility] Work Phone: FERRITINon 08-31-2023 Ferritin [Mass/Vol] 409.0 ng/mL High 10.5 - 3 07.3 ng/mL [facility] Interpretation and review of laboratory results Abnormal [facility] Ferritin [Mass/Vol] 409.0 ng/mL High 10.5-307.3 [facility] Comment on above: Performed By: #### T ACRO #### [facility] (DEFAULT) [address] [place] [address] [id number] HEPATIC FUNCTION PANELon Albumin [Mass/Vol] 3.3 g/dL Low 3.5-5.0 [facility] Comment on above: Performed By: #### T ACRO #### [facility] (DEFAULT) [address] [place] [address] 25349 ALP [Catalytic activity/Vol] 113 U/L Normal 32-126 [facility] Comment on above: Performed By: #### T ACRO #### [facility] (DEFAULT) [address] [place] [address] 21745 ALT [Catalytic activity/Vol] 25 U/L Normal 10-52 [facility] Comment on above: Performed By: #### T ACRO #### [facility] (DEFAULT) [address] [place] [address] 60027 AST [Catalytic activity/Vol] 31 U/L Normal 10-39 [facility] Comment on above: Performed By: #### T ACRO #### [facility] (DEFAULT) [address] [place] [address] 46938 Bilirubin [Mass/Vol] 1.1 mg/dL Normal <1.5 [facility] Comment on above: Performed By: #### T ACRO #### [facility] (DEFAULT) [address] [place] [address] 72954 Bilirubin.indirect [Mass/Vol] 0.3 mg/dL High <0.3 [facility] Comment on above: Performed By: #### T ACRO #### [facility] (DEFAULT) [address] [place] [address] Protein [Mass/Vol] 7.0 g/dL Normal 6.4-8.3 [facility] Comment on above: Performed By: #### T ACRO #### [facility] (DEFAULT) [address] [place] [address] 04693 Albumin [Mass/Vol] 3.3 g/dL Low 3.5 - 5.0 g/dL [facility] ALP [Catalytic activity/Vol] 113 U/L 32 - 126 U/L [facility] ALT [Catalytic activity/Vol] 25 U/L 10 - 52 U/L [facility] AST [Catalytic activity/Vol] 31 U/L 10 - 39 U/L [facility] Bilirubin [Mass/Vol] 1.1 mg/dL NINF - 1.5 mg/dL [facility] Bilirubin.direct [Mass/Vol] 0.3 mg/dL High NINF - 0.3 mg/dL [facility] Protein [Mass/Vol] 7.0 g/dL 6.4 - 8.3 g/dL [facility] LEGIONELLA URINARY AGon Legionella Urinary Antigen Negative Normal Negative [facility] Comment on above: Performed By: #### T ACRO #### [facility] (DEFAULT) [address] [place] [address] 87594 MAGNESIUMon 08-31-2023 Magnesium [Mass/Vol] 1.7 mg/dL Normal 1.6-2.6 [facility] Comment on above: Performed By: #### T ACRO #### [facility] (DEFAULT) [address] [place] [address] 13995 Interpretation and review of laboratory results Normal [facility] Magnesium [Mass/Vol] 1.7 mg/dL 1.6 - 2 .6 mg/dL [facility] No Panel Informationon 08-31 Interpretation and review of laboratory results Abnormal [facility] PROCALCITONINon 08-31-2023 Interpretation and review of laboratory results Normal [facility] Procalcitonin [Mass/Vol] 0.23 ng/mL NINF - 0.50 ng/mL [facility] Procalcitonin 0.23 ng/mL Normal <0.50 [facility] Comment on above: Result Comment: Proc alcitonin is an FDA-approved assay to help manage antibiotic treatment in patients with sepsis/septic shock and lower respiratory tract infections. Specifically, trending procalcitonin in these situations can be used to reduce the duration of antibiotics. Please refer to the Procalcitonin Guide on the Antimicrobial [employer]wardship Webpage for more guidance on how to use and trend procalcitonin in various clinical settings. [email or web address]/[email or web address].aspx?sourcedoc=/departments/[email or web address]/Documents/[email or web address] itonin.docx&action=default&DefaultItemOpen=1 Two common cutoffs associated with bacterial infections are as follows. Respiratory tract infections: >0.25 ng/mL Sepsis/septic shock: >0.5 ng/mL Procalcitonin should not be used alone as a diagnostic tool, however. All procalcitonin results should be interpreted in association with the patients clinical condition and all laboratory findings. Performed By: #### T ACRO #### [facility] (DEFAULT) [address] [place] [address] TACROLIMUS LEVEL, TROUGH ([place] E DRUG LEVEL)Ordered By: Yanira Marcum on 08-31-2023 Interpretation and review of laboratory results Normal [facility] Tacrolimus (Bld) [Mass/Vol] 5.9 ng/mL [facility] TACROLIMUS LEVEL, TROUGH ([place] E DRUG LEVEL)on 08-31-2023 Tacrolimus, Trough 5.9 ng/mL Normal Bone Susana ow Transplant: 4.0-12.0, Therapeutic: 5.0-15.0 [facility] Comment on above: Order Comment: Pleas e draw at specified interval PRIOR to dose. Do not hold dose to wait for level. Specimens batched twice per day, (M-F) and once per day weekendsMethod performed is a chemiluminescent microparticle immunoasssay on the [employer] i2000.The range is based on experience at [facility] and users should be aware that target concentrations vary widely depending on concomitant therapy, time post-transplant, and desired degree of immunosuppression. Performed By: #### T ACRO ####[facility] (DEFAULT)[address] [place] [address] 87407 URINE CULTUREOrdered By: Jorge crowe Held on 08-31-2023 Bacteria identified Cx Nom (Unsp spec) No Growth [facility] DARYL AURIS SCREEN BY PCRO rdered By: Mynor Alejandro on 08-30-2023 Daryl auris Screen by PCR Not detected Not Detected [facility] Interpretation and review of laboratory results Normal [facility] CBC,PLATELETSon 08-30-2023 Hematocrit (Bld) [Volume fraction] 41.3 % Normal 39.6-48.8 [facility] Comment on above: Performed By: #### G YASMINE #### [facility] (DEFAULT) [address] [place] [address] 52843 Hemoglobin (Bld) [Mass/Vol] 13.2 g/dL Low 13.4-16.8 [facility] Comment on above: Performed By: #### G YASMINE #### [facility] (DEFAULT) [address] [place] [address] 18048 MCV (RBC) [Entitic vol] 85.5 fL Normal 79.0-94.5 [facility] Comment on above: Performed By: #### G YASMINE #### [facility] (DEFAULT) [address] [place] [address] 63360 Mean Cell Hgb 27.3 pg Normal 26.1-33.3 [facility] Comment on above: Performed By: #### G YASMINE #### [facility] (DEFAULT) [address] [place] [address] 59090 Mean Cell Hgb Conc 32.0 g/dL Normal 31.9-36.5 [facility] Comment on above: Performed By: #### Vale UNDERWOOD #### [facility] (DEFAULT) [address] [place] [address] 36413 Platelet mean volume (Bld) [Entitic vol] 9.2 fL Normal 8.7-12.3 [facility] Comment on above: Performed By: #### Vale UNDERWOOD #### [facility] (DEFAULT) [address] [place] [address] 20702 Platelets (Bld) [#/Vol] 235 10*3/uL Normal 146-337 [facility] Comment on above: Performed By: #### Vale UNDERWOOD #### [facility] (DEFAULT) [address] [place] [address] 79213 RBC (Bld) [#/Vol] 4.83 10*6/uL Normal 4.38-5.83 [facility] Comment on above: Performed By: ###Walter UNDERWOOD #### [facility] (DEFAULT) [address] [place] [address] 59804 RBC Distribution 13.3 % Normal 10.9-14.3 [facility] Comment on above: Performed By: ###Walter UNDERWOOD #### [facility] (DEFAULT) [address] [place] [address] 49113 WBC (Bld) [#/Vol] 4.96 10*3/uL Normal 3.73-10.10 [facility] Comment on above: Performed By: ###Walter UNDERWOOD #### [facility] (DEFAULT) [address] [place] [address] 97600 Erythrocyte distribution width (RBC) [Ratio] 13.3 % 10.9 - 14.3 % [facility] Hematocrit (Bld) [Volume fraction] 41.3 % 39.6 - 48.8 % [facility] Hemoglobin (Bld) [Mass/Vol] 13.2 g/dL Low 13.4 - 16.8 g/dL [facility] Interpretation and review of laboratory results Abnormal [facility] MCH (RBC) [Entitic mass] 27.3 pg 26.1 - 33.3 pg [facility] MCHC (RBC) [Mass/Vol] 32.0 g/dL 31.9 - 36.5 g/dL [facility] MCV (RBC) [Entitic vol] 85.5 fL 79.0 - 94.5 fL [facility] Platelet mean volume (Bld) [Entitic vol] 9.2 fL 8.7 - 12.3 fL [facility] Platelets (Bld) [#/Vol] 235 10*3/uL 146 - 337 K/uL [facility] RBC (Bld) [#/Vol] 4.83 10*6/uL [facility] WBC (Bld) [#/Vol] 4.96 10*3/uL 3.73 - 10. 10 K/uL [facility] CHEM 7 (LYTES,BUN,CREA,GLUC) on 08-30-2023 Anion gap [Moles/Vol] 14 mmol/L Normal 7-17 [facility] Comment on above: Performed By: #### T ACRO #### [facility] (DEFAULT) [address] [place] [address] 30648 Chloride [Moles/Vol] 102 mmol/L Normal 98-108 [facility] Comment on above: Performed By: #### T ACRO #### [facility] (DEFAULT) [address] [place] [address] 09570 CO2 [Moles/Vol] 20 mmol/L Low 21-31 [facility] Comment on above: Performed By: #### T ACRO #### [facility] (DEFAULT) [address] [place] [address] 03345 Creatinine [Mass/Vol] 1.56 mg/dL High 0.70-1.30 [facility] Comment on above: Performed By: #### T ACRO #### [facility] (DEFAULT) [address] [place] [address] 01985 GFR/1.73 sq M.predicted among non-blacks MDRD (S/P/Bld) [Vol rate/Area] 53 mL/min/{1.73_m2} Low >=60 [facility] Comment on above: Result Comment: Repo rted eGFR is based on the CKD-EPI 2020 equation using creatinine, age, and sex. Performed By: #### T ACRO #### [facility] (DEFAULT) [address] [place] [address] 77521 Glucose [Mass/Vol] 123 mg/dL High 70-99 [facility] Comment on above: Performed By: #### T ACRO #### [facility] (DEFAULT) [address] [place] [address] 24081 Osmolality [Osmolality] 281 mosm/kg Normal 278-305 [facility] Comment on above: Performed By: #### T ACRO #### [facility] (DEFAULT) [address] [place] [address] 74930 Potassium [Moles/Vol] 4.3 mmol/L Normal 3.5-5.0 [facility] Comment on above: Performed By: #### T ACRO #### [facility] (DEFAULT) [address] [place] [address] 09116 Sodium [Moles/Vol] 132 mmol/L Low 135-145 [facility] Comment on above: Performed By: #### T ACRO #### [facility] (DEFAULT) [address] [place] [address] 69577 Urea nitrogen [Mass/Vol] 16 mg/dL Normal 7-25 [facility] Comment on above: Performed By: #### T ACRO #### [facility] (DEFAULT) [address] [place] [address] 24798 Urea nitrogen/Creatinine [Mass ratio] 10 mg/mg Normal [facility] Comment on above: Performed By: #### T ACRO #### [facility] (DEFAULT) [address] [place] [address] 69151 Anion gap [Moles/Vol] 14 mmol/L 7 - 17 mmol/L [facility] Chloride [Moles/Vol] 102 mmol/L 98 - 10 8 mmol/L [facility] CO2 [Moles/Vol] 20 mmol/L Low 21 - 31 mmol/L [facility] Creatinine [Mass/Vol] 1.56 mg/dL High 0.70 - 1.30 mg/dL [facility] eGFR, CKD-EPI, Male 53 Low - PINF [facility] Glucose [Mass/Vol] 123 mg/dL High 70 - 99 mg/dL [facility] Osmolality Calc [Osmolality] 281 [facility] Potassium [Moles/Vol] 4.3 mmol/L 3.5 - 5.0 mmol/L [facility] Sodium [Moles/Vol] 132 mmol/L Low 135 - 145 mmol/L [facility] Urea nitrogen [Mass/Vol] 16 mg/dL 7 - 25 mg/dL [facility] Urea nitrogen/Creatinine [Mass ratio] 10 mg/mg [facility] EXTRA MICROon 08-30-2023 [facility] HEPATIC FUNCTION PANELon Albumin [Mass/Vol] 3.7 g/dL Normal 3.5-5.0 [facility] Comment on above: Performed By: #### T ACRO #### [facility] (DEFAULT) [address] [place] [address] 88880 ALP [Catalytic activity/Vol] 115 U/L Normal 32-126 [facility] Comment on above: Performed By: #### T ACRO #### [facility] (DEFAULT) [address] [place] [address] ALT [Catalytic activity/Vol] 22 U/L Normal 10-52 [facility] Comment on above: Performed By: #### T ACRO #### [facility] (DEFAULT) [address] [place] [address] AST [Catalytic activity/Vol] 34 U/L Normal 10-39 [facility] Comment on above: Performed By: #### T ACRO #### [facility] (DEFAULT) [address] [place] [address] 44261 Bilirubin [Mass/Vol] 1.2 mg/dL Normal <1.5 [facility] Comment on above: Performed By: #### T ACRO #### [facility] (DEFAULT) [address] [place] [address] 74702 Bilirubin.indirect [Mass/Vol] 0.3 mg/dL High <0.3 [facility] Comment on above: Performed By: #### T ACRO #### [facility] (DEFAULT) [address] [place] [address] 91543 Protein [Mass/Vol] 7.7 g/dL Normal 6.4-8.3 [facility] Comment on above: Performed By: #### T ACRO #### [facility] (DEFAULT) [address] [place] [address] 71855 Albumin [Mass/Vol] 3.7 g/dL 3.5 - 5.0 g/dL [facility] ALP [Catalytic activity/Vol] 115 U/L 32 - 126 U/L [facility] ALT [Catalytic activity/Vol] 22 U/L 10 - 52 U/L [facility] AST [Catalytic activity/Vol] 34 U/L 10 - 39 U/L [facility] Bilirubin [Mass/Vol] 1.2 mg/dL [facility] mg/dL [facility] Bilirubin.direct [Mass/Vol] 0.3 mg/dL High NINF - 0.3 mg/dL [facility] Protein [Mass/Vol] 7.7 g/dL 6.4 - 8.3 g/dL [facility] MAGNESIUMon 08-30-2023 Magnesium [Mass/Vol] 1.8 mg/dL Normal 1.6-2.6 [facility] Comment on above: Performed By: #### T ACRO #### [facility] (DEFAULT) [address] [place] [address] 68995 Interpretation and review of laboratory results Normal [facility] Magnesium [Mass/Vol] 1.8 mg/dL 1.6 - 2 .6 mg/dL [facility] No Panel Informationon 08-30 Interpretation and review of laboratory results Abnormal [facility] CBC,PLATELETSon 08-29-2023 Hematocrit (Bld) [Volume fraction] 37.6 % Low 39.6-48.8 [facility] Comment on above: Performed By: #### H EMOGC #### [facility] (DEFAULT) [address] [place] [address] 29799 Hemoglobin (Bld) [Mass/Vol] 12.2 g/dL Low 13.4-16.8 [facility] Comment on above: Performed By: #### H EMOGC #### [facility] (DEFAULT) [address] [place] [address] 82929 MCV (RBC) [Entitic vol] 85.1 fL Normal 79.0-94.5 [facility] Comment on above: Performed By: #### H EMOGC #### [facility] (DEFAULT) [address] [place] [address] 58373 Mean Cell Hgb 27.6 pg Normal 26.1-33.3 [facility] Comment on above: Performed By: #### H EMOGC #### [facility] (DEFAULT) [address] [place] [address] 00952 Mean Cell Hgb Conc 32.4 g/dL Normal 31.9-36.5 [facility] Comment on above: Performed By: #### H EMOGC #### [facility] (DEFAULT) [address] [place] [address] 61801 Platelet mean volume (Bld) [Entitic vol] 9.4 fL Normal 8.7-12.3 [facility] Comment on above: Performed By: #### H EMOGC #### [facility] (DEFAULT) [address] [place] [address] 17297 Platelets (Bld) [#/Vol] 233 10*3/uL Normal 146-337 [facility] Comment on above: Performed By: #### H [facility] #### [facility] (DEFAULT) [address] [place] [address] 04927 RBC (Bld) [#/Vol] 4.42 10*6/uL Normal 4.38-5.83 [facility] Comment on above: Performed By: #### H EMO #### [facility] (DEFAULT) [address] [place] [address] 68526 RBC Distribution 13.4 % Normal 10.9-14.3 [facility] Comment on above: Performed By: #### H EMO #### [facility] (DEFAULT) [address] [place] [address] 84896 WBC (Bld) [#/Vol] 4.92 10*3/uL Normal 3.73-10.10 [facility] Comment on above: Performed By: #### H [facility] #### [facility] (DEFAULT) [address] [place] [address] 18423 Erythrocyte distribution width (RBC) [Ratio] 13.4 % 10.9 - 14.3 % [facility] Hematocrit (Bld) [Volume fraction] 37.6 % Low 39.6 - 48.8 % [facility] Hemoglobin (Bld) [Mass/Vol] 12.2 g/dL Low 13.4 - 16.8 g/dL [facility] Interpretation and review of laboratory results Abnormal [facility] MCH (RBC) [Entitic mass] 27.6 pg 26.1 - 33.3 pg [facility] MCHC (RBC) [Mass/Vol] 32.4 g/dL 31.9 - 36.5 g/dL [facility] MCV (RBC) [Entitic vol] 85.1 fL 79.0 - 94.5 fL [facility] Platelet mean volume (Bld) [Entitic vol] 9.4 fL 8.7 - 12.3 fL [facility] Platelets (Bld) [#/Vol] 233 10*3/uL 146 - 337 K/uL [facility] RBC (Bld) [#/Vol] 4.42 10*6/uL [facility] WBC (Bld) [#/Vol] 4.92 10*3/uL 3.73 - 10. 10 K/uL [facility] CHEM 7 (LYTES,BUN,CREA,GLUC) on 08-29-2023 Anion gap [Moles/Vol] 13 mmol/L Normal 7-17 [facility] Comment on above: Performed By: #### G YASMINE #### [facility] (DEFAULT) [address] [address] Chloride [Moles/Vol] 105 mmol/L Normal 98-108 [facility] Comment on above: Performed By: #### G YASMINE #### [facility] (DEFAULT) [address] [place] [address] 92123 CO2 [Moles/Vol] 20 mmol/L Low 21-31 [facility] Comment on above: Performed By: #### G YASMINE #### [facility] (DEFAULT) [address] [place] [address] 86651 Creatinine [Mass/Vol] 1.55 mg/dL High 0.70-1.30 [facility] Comment on above: Performed By: #### G YASMINE #### [facility] (DEFAULT) [address] [place] [address] 49472 GFR/1.73 sq M.predicted among non-blacks MDRD (S/P/Bld) [Vol rate/Area] 54 mL/min/{1.73_m2} Low >=60 [facility] Comment on above: Result Comment: Repo rted eGFR is based on the CKD-EPI 2020 equation using creatinine, age, and sex. Performed By: #### G YASMINE #### [facility] (DEFAULT) [address] [place] [address] 75913 Glucose [Mass/Vol] 108 mg/dL High 70-99 [facility] Comment on above: Performed By: #### G YASMINE #### [facility] (DEFAULT) [address] [place] [address] 66021 Osmolality [Osmolality] 283 mosm/kg Normal 278-305 [facility] Comment on above: Performed By: #### Vale UNDERWOOD #### [facility] (DEFAULT) [address] [place] [address] 23962 Potassium [Moles/Vol] 4.5 mmol/L Normal 3.5-5.0 [facility] Comment on above: Performed By: #### Vale UNDERWOOD #### [facility] (DEFAULT) [address] [place] [address] 05524 Sodium [Moles/Vol] 133 mmol/L Low 135-145 [facility] Comment on above: Performed By: #### Vale UNDERWOOD #### [facility] (DEFAULT) [address] [place] [address] 74320 Urea nitrogen [Mass/Vol] 19 mg/dL Normal 7-25 [facility] Comment on above: Performed By: #### Vale UNDERWOOD #### [facility] (DEFAULT) [address] [place] [address] 04457 Urea nitrogen/Creatinine [Mass ratio] 12 mg/mg Normal [facility] Comment on above: Performed By: #### Vale UNDERWOOD #### [facility] (DEFAULT) [address] [place] [address] 90661 Anion gap [Moles/Vol] 13 mmol/L 7 - 17 mmol/L [facility] Chloride [Moles/Vol] 105 mmol/L 98 - 10 8 mmol/L [facility] CO2 [Moles/Vol] 20 mmol/L Low 21 - 31 mmol/L [facility] Creatinine [Mass/Vol] 1.55 mg/dL High 0.70 - 1.30 mg/dL [facility] eGFR, CKD-EPI, Male 55 Low - [facility] Gl[facility] [Mass/Vol] 108 mg/dL High 70 - 99 mg/dL [facility] [facility] Osm[facility] Calc [Osmolality] 283 [facility] Potassium [Moles/Vol] 4.5 mmol/L 3.5 - 5.0 mmol/L [facility] Sodium [Moles/Vol] 133 mmol/L Low 135 - 145 mmol/L [facility] Urea nitrogen [Mass/Vol] 19 mg/dL 7 - 25 mg/dL [facility] Urea nitrogen/Creatinine [Mass ratio] 12 mg/mg [facility] GGTon 08-29-2023 Gamma glutamyl transferase [Catalytic activity/Vol] 64 U/L 8 - 64 U/L [facility] Interpretation and review of laboratory results Normal [facility] Gamma glutamyl transferase [Catalytic activity/Vol] 64 U/L Normal 8-64 [facility] Comment on above: Performed By: #### Vale UNDERWOOD #### [facility] (DEFAULT) [address] [place] [address] HEPATIC FUNCTION PANELon Albumin [Mass/Vol] 3.3 g/dL Low 3.5-5.0 [facility] Comment on above: Performed By: ###Walter UNDERWOOD #### [facility] (DEFAULT) [address] [place] [address] 11795 ALP [Catalytic activity/Vol] 103 U/L Normal 32-126 [facility] Comment on above: Performed By: #### Vale UNDERWOOD #### [facility] (DEFAULT) [address] [place] [address] 56676 ALT [Catalytic activity/Vol] 18 U/L Normal 10-52 [facility] Comment on above: Performed By: #### Vale UNDERWOOD #### [facility] (DEFAULT) [address] [place] [address] 20817 AST [Catalytic activity/Vol] 27 U/L Normal 10-39 [facility] Comment on above: Performed By: #### Vale UNDERWOOD #### [facility] (DEFAULT) [address] [place] [address]609 Bilirubin [Mass/Vol] 1.1 mg/dL Normal <1.5 [facility] Comment on above: Performed By: #### G YASMINE #### [facility] (DEFAULT) [address] [place] [address]203 Bilirubin.indirect [Mass/Vol] 0.3 mg/dL High <0.3 [facility] Comment on above: Performed By: #### G YASMINE #### [facility] (DEFAULT) [address] [place] [address] 8[address]22 Protein [Mass/Vol] 6.8 g/dL Normal 6.4-8.3 [facility] Comment on above: Performed By: #### G YASMINE #### [facility] (DEFAULT) [address] [place] [address] 42402 Albumin [Mass/Vol] 3.3 g/dL Low 3.5 - 5.0 g/dL [facility] ALP [Catalytic activity/Vol] 103 U/L 32 - 126 U/L [facility] ALT [Catalytic activity/Vol] 18 U/L 10 - 52 U/L [facility] AST [Catalytic activity/Vol] 27 U/L 10 - 39 U/L [facility] Bilirubin [Mass/Vol] 1.1 mg/dL [facility] mg/dL [facility] Bilirubin.direct [Mass/Vol] 0.3 mg/dL High NINF - 0.3 mg/dL [facility] Protein [Mass/Vol] 6.8 g/dL 6.4 - 8.3 g/dL [facility] HISTOPLASMA AND BLASTOMYCES ANTIGEN, ENZYME IMMUNOASSAY, SERMon 08-29-2023 Histoplasma/Blastomyc es Ag Result Detected Invalid Interpretation Code Not Detected [facility] Comment on above: Result Comment: Anti gen from Histoplasma or Blastomyces (unable to differentiate) detected. Result should be correlated with clinical presentation, exposure history, and other diagnostic procedures, including culture, serology, histopathology, and/or radiographic findings, to aid in the differentiation between histoplasmosis and blastomycosis. CRITICAL RESULT Performed By: #### Y PNRP #### [facility] (DEFAULT) [address] [address] Histoplasma/Blastomyc es Ag Value 5.3 ng/mL Normal [facility] Comment on above: Result Comment: ADDITIONAL INFORMATION This test was developed and its performance characteristics determined by [facility] in a manner consistent with CLIA requirements. This test has not been cleared or approved by the U.S. Food and Drug Administration. Test Performed by: [facility] [place] [address] Barbering Teacher: Rosendo Bose M.D. Ph.D.; CLIA# [id number] Performed By: #### Y PNRP #### [facility] (DEFAULT) [address] [place] [address] HISTOPLASMA ANTIGEN,URINEon 08-29-2023 HISTOPLASM AG, URINE Not detected Normal Not Detected [facility] Comment on above: Result Comment: No H istoplasma antigen detected. False negative results may occur. Repeat testing on a new specimen should be considered if clinically indicated. Performed By: #### T ACRO #### [facility] [address] [place] [address] Histoplasma Ag Value Not detected Normal [facility] Comment on above: Result Comment: ADDITIONAL INFORMATION This test has been modified from the tow motor operator's instructions. Its performance characteristics were determined by [facility] in a manner consistent with CLIA requirements. This test has not been cleared or approved by the U.S. Food and Drug Administration. Test Performed by: [facility] [place] [address] Barbering Teacher: Rosendo Bose M.D. Ph.D.; CLIA# [id number] Performed By: #### T ACRO #### [facility] (DEFAULT) [address] [place] [address] MAGNESIUMon 08-29-2023 Magnesium [Mass/Vol] 1.7 mg/dL Normal 1.6-2.6 [facility] Comment on above: Performed By: #### G YASMINE #### [facility] (DEFAULT) [address] [place] [address] Interpretation and review of laboratory results Normal [facility] Magnesium [Mass/Vol] 1.7 mg/dL 1.6 - 2 .6 mg/dL [facility] No Panel Informationon 08-29 Interpretation and review of laboratory results Abnormal [facility] PT,INR,PTTon 08-29-2023 aPTT Coag (Bld) [Time] 29.3 s Normal 24.0-34.3 [facility] Comment on above: Performed By: #### L EGN #### [facility] (DEFAULT) [address] [place] [address]77 INR Coag (PPP) [Relative time] 1.1 {INR} Normal 0.9-1.1 [facility] Comment on above: Performed By: #### L EGN #### [facility] (DEFAULT) [address] [place] [address]48 PT Coag (PPP) [Time] 13.8 s Normal 11.9-14.2 [facility] Comment on above: Performed By: #### L EGN #### [facility] (DEFAULT) [address] [place] [address] 58874 aPTT Coag (PPP) [Time] 29.3 s [facility] INR Coag (Bld) [Relative time] 1.1 {INR} 0.9 - 1.1 [facility] Interpretation and review of laboratory results Normal [facility] PT Coag (PPP) [Time] 13.8 s [facility] Portable XR Chest Viewson RADIOLOGY RADIOLOGY [facility] Portable XR Chest ViewsOrder ed By: Gerald Baer on 08-29-2023 [facility] Work Phone: TACROLIMUS LEVEL, TROUGH (OH E DRUG LEVEL)on 08-29-2023 Interpretation and review of laboratory results Normal [facility] Tacrolimus (Bld) [Mass/Vol] 8.9 ng/mL [facility] Tacrolimus, Trough 8.9 ng/mL Normal [facility] Transplant: 4.0-12.0, Therapeutic: 5.0-15.0 [facility] Comment on above: Order Comment: Pleas e draw at specified interval PRIOR to dose. Do not hold dose to wait for level. Specimens batched twice per day, (M-F) and once per day weekendsMethod performed is a chemiluminescent microparticle immunoasssay on the [employer] i2000.The range is based on experience at [facility] and users should be aware that target concentrations vary widely depending on concomitant therapy, time post-transplant, and desired degree of immunosuppression. Performed By: #### H EMOGC #### [facility] (DEFAULT) [address] [address] Tacrolimus, Trough 8.7 ng/mL Normal [facility] Transplant: 4.0-12.0, Therapeutic: 5.0-15.0 [facility] Comment on above: Order Comment: Pleas e draw at specified interval PRIOR to dose. Do not hold dose to wait for level. Specimens batched twice per day, (M-F) and once per day weekends Method performed is a chemiluminescent microparticle immunoasssay on the [employer] i2000. The range is based on experience at [facility] and users should be aware that target concentrations vary widely depending on concomitant therapy, time post-transplant, and desired degree of immunosuppression. Performed By: #### T ACRO #### [facility] (DEFAULT) [address] [place] [address] TACROLIMUS LEVEL, TROUGH (OH E DRUG LEVEL)Ordered By: Roxanne Louie on 08-29-2023 Interpretation and review of laboratory results Normal [facility] Tacrolimus (Bld) [Mass/Vol] 8.7 ng/[facility]AL[facility] REFLEX TO CULTURE PERFORMABLEon 08-29-2023 Appearance (U) Clear Normal Clear [facility] Comment on above: Order Comment: Pleas e draw at specified interval PRIOR to dose. Do not hold dose to wait for level. Specimens batched twice per day, (M-F) and once per day weekends Method performed is a chemiluminescent microparticle immunoasssay on the [employer] i2000. The range is based on experience at [facility] and users should be aware that target concentrations vary widely depending on concomitant therapy, time post-transplant, and desired degree of immunosuppression. Performed By: #### T ACRO #### [facility] (DEFAULT) [address] [address] Bacteria ABSENT Normal ABSENT [facility] Comment on above: Order Comment: Pleas e draw at specified interval PRIOR to dose. Do not hold dose to wait for level. Specimens batched twice per day, (M-F) and once per day weekends Method performed is a chemiluminescent microparticle immunoasssay on the [employer] i2000. The range is based on experience at [facility] and users should be aware that target concentrations vary widely depending on concomitant therapy, time post-transplant, and desired degree of immunosuppression. Performed By: #### T ACRO #### [facility] (DEFAULT) [address] [address] Blood Urine Trace Abnormal Negative [facility] Comment on above: Order Comment: Pleas e draw at specified interval PRIOR to dose. Do not hold dose to wait for level. Specimens batched twice per day, (M-F) and once per day weekends Method performed is a chemiluminescent microparticle immunoasssay on the [employer] i2000. The range is based on experience at [facility] and users should be aware that target concentrations vary widely depending on concomitant therapy, time post-transplant, and desired degree of immunosuppression. Performed By: #### T ACRO #### [facility] (DEFAULT) [address] [address] Calcium Oxalate Crystals PRESENT Normal [facility] Comment on above: Order Comment: Pleas e draw at specified interval PRIOR to dose. Do not hold dose to wait for level. Specimens batched twice per day, (M-F) and once per day weekends Method performed is a chemiluminescent microparticle immunoasssay on the [employer] i2000. The range is based on experience at [facility] and users should be aware that target concentrations vary widely depending on concomitant therapy, time post-transplant, and desired degree of immunosuppression. Performed By: #### T ACRO #### [facility] [address] [address] Color (U) Yellow Normal Yellow [facility] Comment on above: Order Comment: Pleas e draw at specified interval PRIOR to dose. Do not hold dose to wait for level. Specimens batched twice per day, (M-F) and once per day weekends Method performed is a chemiluminescent microparticle immunoasssay on the [employer] i2000. The range is based on experience at [facility] and users should be aware that target concentrations vary widely depending on concomitant therapy, time post-transplant, and desired degree of immunosuppression. Performed By: #### T ACRO #### [facility] (DEFAULT) [address] [address] Glucose Ql (U) Negative Normal Negative [facility] Comment on above: Order Comment: Pleas e draw at specified interval PRIOR to dose. Do not hold dose to wait for level. Specimens batched twice per day, (M-F) and once per day weekends Method performed is a chemiluminescent microparticle immunoasssay on the [employer] i2000. The range is based on experience at [facility] and users should be aware that target concentrations vary widely depending on concomitant therapy, time post-transplant, and desired degree of immunosuppression. Performed By: #### T ACRO #### [facility] (DEFAULT) [address] [place] [address]37 Ketones Ql (U) Negative Normal Negative [facility] Comment on above: Order Comment: Pleas e draw at specified interval PRIOR to dose. Do not hold dose to wait for level. Specimens batched twice per day, (M-F) and once per day weekends Method performed is a chemiluminescent microparticle immunoasssay on the [employer] i2000. The range is based on experience at [facility] and users should be aware that target concentrations vary widely depending on concomitant therapy, time post-transplant, and desired degree of immunosuppression. Performed By: #### T ACRO #### [facility] [address] [place] [address] Leukocyte esterase Test strip Ql (U) Negative Normal Negative [facility] Comment on above: Order Comment: Pleas e draw at specified interval PRIOR to dose. Do not hold dose to wait for level. Specimens batched twice per day, (M-F) and once per day weekends Method performed is a chemiluminescent microparticle immunoasssay on the [employer] i2000. The range is based on experience at [facility] and users should be aware that target concentrations vary widely depending on concomitant therapy, time post-transplant, and desired degree of immunosuppression. Performed By: #### T ACRO #### [facility] [address] [place] [address] Nitrites Urine Negative Normal Negative [facility] Comment on above: Order Comment: Pleas e draw at specified interval PRIOR to dose. Do not hold dose to wait for level. Specimens batched twice per day, (M-F) and once per day weekends Method performed is a chemiluminescent microparticle immunoasssay on the [employer] i2000. The range is based on experience at [facility] and users should be aware that target concentrations vary widely depending on concomitant therapy, time post-transplant, and desired degree of immunosuppression. Performed By: #### T ACRO #### [facility] [address] [place] [address] pH (U) 6.0 [pH] Normal 5.0-7.0 [facility] Comment on above: Order Comment: Pleas e draw at specified interval PRIOR to dose. Do not hold dose to wait for level. Specimens batched twice per day, (M-F) and once per day weekends Method performed is a chemiluminescent microparticle immunoasssay on the [employer] i2000. The range is based on experience at [facility] and users should be aware that target concentrations vary widely depending on concomitant therapy, time post-transplant, and desired degree of immunosuppression. Performed By: #### T ACRO #### [facility] (DEFAULT) [address] [place] [address] Protein Urine Negative Normal Negative [facility] Comment on above: Order Comment: Pleas e draw at specified interval PRIOR to dose. Do not hold dose to wait for level. Specimens batched twice per day, (M-F) and once per day weekends Method performed is a chemiluminescent microparticle immunoasssay on the [employer] i2000. The range is based on experience at [facility] and users should be aware that target concentrations vary widely depending on concomitant therapy, time post-transplant, and desired degree of immunosuppression. Performed By: #### T ACRO #### [facility] [address] [place] [address]73 RBC Urine 3-5 Abnormal 0-2 [facility] Comment on above: Order Comment: Pleas e draw at specified interval PRIOR to dose. Do not hold dose to wait for level. Specimens batched twice per day, (M-F) and once per day weekends Method performed is a chemiluminescent microparticle immunoasssay on the [employer] i2000. The range is based on experience at [facility] and users should be aware that target concentrations vary widely depending on concomitant therapy, time post-transplant, and desired degree of immunosuppression. Performed By: #### T ACRO #### [facility] (DEFAULT) [address] [address] Specific [place] Urine 1.015 Normal 1.001-1.035 [facility] Comment on above: Order Comment: Pleas e draw at specified interval PRIOR to dose. Do not hold dose to wait for level. Specimens batched twice per day, (M-F) and once per day weekends Method performed is a chemiluminescent microparticle immunoasssay on the [employer] i2000. The range is based on experience at [facility] and users should be aware that target concentrations vary widely depending on concomitant therapy, time post-transplant, and desired degree of immunosuppression. Performed By: #### T ACRO #### [facility] (DEFAULT) [address] [place] [address] Squamous/Epithelial Cells 0-2/hpf Normal 0-2/hpf, 3-5/hpf = 1+ [facility] Comment on above: Order Comment: Pleas e draw at specified interval PRIOR to dose. Do not hold dose to wait for level. Specimens batched twice per day, (M-F) and once per day weekends Method performed is a chemiluminescent microparticle immunoasssay on the [employer] i2000. The range is based on experience at [facility] and users should be aware that target concentrations vary widely depending on concomitant therapy, time post-transplant, and desired degree of immunosuppression. Performed By: #### T ACRO #### [facility] (DEFAULT) [address] [address] Urobilinogen Urine 1.0 E.U./dL Normal 0.2 E.U/d L, 1.0 E.U/dL [facility] Comment on above: Order Comment: Pleas e draw at specified interval PRIOR to dose. Do not hold dose to wait for level. Specimens batched twice per day, (M-F) and once per day weekends Method performed is a chemiluminescent microparticle immunoasssay on the [employer] i2000. The range is based on experience at [facility] and users should be aware that target concentrations vary widely depending on concomitant therapy, time post-transplant, and desired degree of immunosuppression. Performed By: #### T ACRO #### [facility] (DEFAULT) [address] [place] [address] WBC Urine 0 - 5 Normal 0 - 5 [facility] Comment on above: Order Comment: Pleas e draw at specified interval PRIOR to dose. Do not hold dose to wait for level. Specimens batched twice per day, (M-F) and once per day weekends Method performed is a chemiluminescent microparticle immunoasssay on the [employer] i2000. The range is based on experience at [facility] and users should be aware that target concentrations vary widely depending on concomitant therapy, time post-transplant, and desired degree of immunosuppression. Performed By: #### T ACRO #### [facility] (DEFAULT) [address] [address] URINALYSIS REFLEX TO CULTURE PERFORMABLEOrdered By: Shaji Kelly on 09-30-2023 Appearance (U) Clear Clear [facility] Bacteria LM Ql (Urine sed) ABSENT ABSENT [facility] Calcium Oxalate Crystals PRESENT [facility] Color (U) Yellow Yellow [facility] Epithelial cells.squamous LM Ql (Urine sed) 0-2/hpf 0-2/hpf, 3-5/hpf = 1+ [facility] Glucose Test strip (U) [Mass/Vol] Negative Negative [facility] Interpretation and review of laboratory results Abnormal [facility] Ketones (U) [Mass/Vol] Negative Negative [facility] Leukocyte esterase Test strip Ql (U) Negative Negative [facility] Nitrite Ql (U) Negative Negative [facility] pH (U) 6.0 [pH] 5.0 - 7.0 [facility] Protein (U) [Mass/Vol] Negative Negative [facility] RBC (U) [#/Vol] Trace Abnormal Negative [facility] RBC LM.HPF (Urine sed) [#/Area] 3-5 Abnormal [facility] Specific gravity (U) [Rel density] 1.015 1.001 - 1.035 [facility] Urobilinogen (U) [Mass/Vol] 1.0 E.U./dL 0.2 E.U/dL, 1.0 E.U/dL [facility] WBC LM.HPF (Urine sed) [#/Area] 0 - 5 [facility] URINE CULTUREon 08-29-2023 Bacteria identified Cx Nom (U) No Growth Normal [facility] Comment on above: Order Comment: For i ndwelling catheters, specimen collection is acceptable on catheter day 1 and 2 only. Sung top vacutainer. Urine must be to the fill line to process (4mls). If minimum volume, send urine in a yellow top vacutainer tube. Performed By: #### [facility] #### [facility] (DEFAULT) [address] [place] [address] US RENAL TRANSPLANT SCANon 0 08-29-2023 US RENAL TRANSPLANT SCAN EXAM: US RENAL TRANSPLANT SCAN, 08/29/2023 08:57 AM CLINICAL INDICATIONS: post transplant pt for scan COMPARISON: Ultrasound transplant kidney dated May 16, 2022. TECHNIQUE: Real-time sung scale ultrasound images of the renal transplant in the right lower quadrant were obtained in longitudinal and transverse orientations utilizing a curved array transducer. Color and duplex doppler imaging was used to evaluate vascular flow. FINDINGS: Transplant Kidney: The transplanted kidney is identified in the right lower quadrant. It measures 14.6 cm in length. Cortex: The renal cortex has a smooth contour, and echogenicity appears normal. There is no hydronephrosis. No perinephric fluid collections. Multiple small twinkle artifacts within the parenchyma may represent small nonobstructive calculi. Doppler: Duplex imaging demonstrates normal arterial waveforms in the renal artery. Peak systolic velocity (PSV) in the renal artery: 203 cm/s Acceleration time (AT): 51 ms Peak systolic velocity (PSV) in the external iliac artery: 240 cm/s Ratio of PSV(renal) to PSV(iliac): 0.8 Intrarenal arterial resistive indices as follows: Upper pole: 0.69 Interpolar: 0.69 Lower pole: 0.72 (range of resistive indices on the previous examination was 0.8). Bladder: Possible stone with twinkle artifact measuring up to 0.8 x 0.5 cm. Abdomen: No ascites in the visualized images. IMPRESSION: Questionable stones in the transplant kidney with normal resistive indices and no hydronephrosis. Possible bladder stone. If confirmation of stones is desired, consider noncontrast CT scanning. I personally viewed and interpreted these images and I have reviewed and approved this report. Normal [facility] US for transplanted kidney l imitedon 08-29-2023 RADIOLOGY RADIOLOGY [facility] Radiology Study observation (narrative) [facility] US for transplanted kidney l imitedOrdered By: Romana Myers on 08-29-2023 [facility] Work Phone: XR CHEST PORTABLEon 08-29-20 XR CHEST PORTABLE EXAM: XR CHEST PORTABLE, 08/28/2023 21:46 PM CLINICAL INDICATIONS: Fevers, cough RELEVANT CLINICAL HISTORY: COMPARISON: May 17, 2022 FINDINGS: Clear lungs. Prominent heart, unchanged. No pulmonary edema. Normal bones. IMPRESSION: Prominent heart without pulmonary edema. Clear lungs. Normal [facility] BLOOD CULTUREon 08-28-2023 Bacteria identified Cx Nom (Unsp spec) NO GROWTH DAY 5 OF 5 Normal [facility] Comment on above: Order Comment: 2 Bot tles (1 Set - consists of 1 Aerobic bottle and 1 Anaerobic bottle) -1st Peripheral DrawFor syringe method draw:If able to obtain adequate sample (20 ml) inoculate anaerobic bottle firstIf inadequate sample obtained (less than 20 ml) inoculate aerobic bottle firstFor vacutainer method draw: Fill aerobic bottle first, then anaerobic Performed By: #### [facility] #### [facility] (DEFAULT) [address] [place] [address] Bacteria identified Cx Nom (Unsp spec) NO GROWTH DAY 5 OF 5 Normal [facility] Comment on above: Order Comment: 2 Bot tles (1 Set - consists of 1 Aerobic bottle and 1 Anaerobic bottle) -1st Peripheral DrawFor syringe method draw:If able to obtain adequate sample (20 ml) inoculate anaerobic bottle firstIf inadequate sample obtained (less than 20 ml) inoculate aerobic bottle firstFor vacutainer method draw: Fill aerobic bottle first, then anaerobic Performed By: #### [facility] #### [facility] (DEFAULT) [address] [place] [address] DARYL AURIS SCREEN BY PCRo n 08-28-2023 Daryl auris Screen by PCR Not detected Normal Not Detected [facility] Comment on above: Order Comment: This test was performed using a real-time PCR assay. This test was developed, and its performance characteristics determined by [facility]. It has not been cleared or approved by the FDA. The laboratory is regulated under CLIA as qualified to perform high-complexity testing. This test is used for clinical purposes. It should not be regarded as investigational or for research. Performed By: #### [facility] #### [facility] [address] [address] CBC AND ELECTRONIC DIFFon Abs Baso Auto < Normal 0.00-0.09 [facility] Comment on above: Performed By: #### Vale UNDERWOOD #### [facility] (DEFAULT) [address] [address] Basophils/100 WBC (Bld) 0.6 % Normal [facility] Comment on above: Performed By: #### Vale UNDERWOOD #### [facility] (DEFAULT) [address] [address] DIFF STATUS Electronic Differential Normal [facility] Comment on above: Performed By: #### Vale UNDERWOOD #### [facility] (DEFAULT) [address] [address] Eosinophils (Bld) [#/Vol] 0.10 10*3/uL Normal 0.00-0.48 [facility] Comment on above: Performed By: #### Vale UNDERWOOD #### [facility] (DEFAULT) [address] [address] Eosinophils/100 WBC (Bld) 2.1 % Normal [facility] Comment on above: Performed By: ###Walter UNDERWOOD #### [facility] (DEFAULT) [address] [address] Hematocrit (Bld) [Volume fraction] 37.9 % Low 39.6-48.8 [facility] Comment on above: Performed By: #### Vale UNDERWOOD #### [facility] (DEFAULT) [address] [address] Hemoglobin (Bld) [Mass/Vol] 12.4 g/dL Low 13.4-16.8 [facility] Comment on above: Performed By: #### Vale UNDERWOOD #### [facility] (DEFAULT) [address] [address] Immature Grans % 0.6 % Normal [facility] Comment on above: Performed By: #### Vale UNDERWOOD #### [facility] (DEFAULT) [address] [place] [address] Immature Grans Absolute < Normal <=0.07 [facility] Comment on above: Performed By: #### Vale UNDERWOOD #### [facility] (DEFAULT) [address] [place] [address] Lymphocytes (Bld) [#/Vol] 1.76 10*3/uL Normal 0.83-3.57 [facility] Comment on above: Performed By: #### G YASMINE #### [facility] (DEFAULT) [address] [place] [address] Lymphocytes/100 WBC (Bld) 37.1 % Normal [facility] Comment on above: Performed By: #### Vale UNDERWOOD #### [facility] (DEFAULT) [address] [place] [address] MCV (RBC) [Entitic vol] 85.0 fL Normal 79.0-94.5 [facility] Comment on above: Performed By: #### Vale UNDERWOOD #### [facility] (DEFAULT) [address] [address] Mean Cell Hgb 27.8 pg Normal 26.1-33.3 [facility] Comment on above: Performed By: #### Vale UNDERWOOD #### [facility] (DEFAULT) [address] [address] Mean Cell Hgb Conc 32.7 g/dL Normal 31.9-36.5 [facility] Comment on above: Performed By: #### Vale UNDERWOOD #### [facility] (DEFAULT) [address] [place] [address] Monocytes (Bld) [#/Vol] 0.66 10*3/uL Normal 0.24-0.93 [facility] Comment on above: Performed By: #### Vale ASAASHISH #### [facility] (DEFAULT) [address] [place] [address] Monocytes/100 WBC (Bld) 13.9 % Normal [facility] Comment on above: Performed By: #### Vale UNDERWOOD #### [facility] (DEFAULT) [address] [address] Nucleated RBC 0.0 /100 WBC Normal <=0.2 [facility] Comment on above: Performed By: #### Vale UNDERWOOD #### [facility] (DEFAULT) [address] [address] Platelet mean volume (Bld) [Entitic vol] 9.3 fL Normal 8.7-12.3 [facility] Comment on above: Performed By: #### Vale UNDERWOOD #### [facility] (DEFAULT) [address] [address] Platelets (Bld) [#/Vol] 262 10*3/uL Normal 146-337 [facility] Comment on above: Performed By: #### Vale UNDERWOOD #### [facility] (DEFAULT) [address] [address] RBC (Bld) [#/Vol] 4.46 10*6/uL Normal 4.38-5.83 [facility] Comment on above: Performed By: ###Walter UNDERWOOD #### [facility] (DEFAULT) [address] [address] RBC Distribution 13.4 % Normal 10.9-14.3 [facility] Comment on above: Performed By: #### Vale UNDERWOOD #### [facility] (DEFAULT) [address] [address] Segs + Bands Auto 45.7 % Normal [facility] Comment on above: Performed By: #### Vale UNDERWOOD #### [facility] (DEFAULT) [address] [address] Segs + Bands,Absolute Auto 2.16 K/uL Normal 1.57-6.19 [facility] Comment on above: Performed By: #### Vale UNDERWOOD #### [facility] (DEFAULT) [address] [place] [address] WBC (Bld) [#/Vol] 4.74 10*3/uL Normal 3.73-10.10 [facility] Comment on above: Performed By: #### G YASMINE #### [facility] (DEFAULT) [address] [place] [address] Basophils (Bld) [#/Vol] K/uL 0.00 - 0.09 K/uL [facility] Basophils/100 WBC (Bld) 0.6 % [facility] Differential cell count method Nom (Bld) Electronic Differential [facility] Eosinophils (Bld) [#/Vol] 0.10 10*3/uL 0.00 - 0.48 K/uL [facility] Eosinophils/100 WBC (Bld) 2.1 % [facility] Erythrocyte distribution width (RBC) [Ratio] 13.4 % 10.9 - 14.3 % [facility] Hematocrit (Bld) [Volume fraction] 37.9 % Low 39.6 - 48.8 % [facility] Hemoglobin (Bld) [Mass/Vol] 12.4 g/dL Low 13.4 - 16.8 g/dL [facility] Immature granulocytes (Bld) [#/Vol] K/uL NINF - 0.07 K/uL [facility] Immature granulocytes/100 WBC (Bld) 0.6 % [facility] Interpretation and review of laboratory results Abnormal [facility] Lymphocytes (Bld) [#/Vol] 1.76 10*3/uL 0.83 - 3.57 K/uL [facility] Lymphocytes/100 WBC (Bld) 37.1 % [facility] MCH (RBC) [Entitic mass] 27.8 pg 26.1 - 33.3 pg [facility] MCHC (RBC) [Mass/Vol] 32.7 g/dL 31.9 - 36.5 g/dL [facility] MCV (RBC) [Entitic vol] 85.0 fL 79.0 - 94.5 fL [facility] Monocytes (Bld) [#/Vol] 0.66 10*3/uL 0.24 - 0.93 K/uL [facility] Monocytes/100 WBC (Bld) 13.9 % [facility] Neutrophils (Bld) [#/Vol] 2.16 10*3/uL 1.57 - 6.19 K/uL [facility] Nucleated RBC/100 WBC (Bld) [Ratio] 0.0 % NINF [facility] Platelet mean volume (Bld) [Entitic vol] 9.3 fL 8.7 - 12.3 fL [facility] Platelets (Bld) [#/Vol] 262 10*3/uL 146 - 337 K/uL [facility] RBC (Bld) [#/Vol] 4.46 10*6/uL [facility] Segmented neutrophils/100 WBC (Bld) 45.7 % [facility] WBC (Bld) [#/Vol] 4.74 10*3/uL 3.73 - 10. 10 K/uL [facility] CHEM 6 (LYTES, BUN CREA)on 0 08-28-2023 Anion gap [Moles/Vol] 13 mmol/L Normal 7-17 [facility] Comment on above: Performed By: #### C HM6 #### [facility] (DEFAULT) [address] [place] [address] Chloride [Moles/Vol] 103 mmol/L Normal 98-108 [facility] Comment on above: Performed By: #### C HM6 #### [facility] (DEFAULT) [address] [place] [address] CO2 [Moles/Vol] 22 mmol/L Normal 21-31 [facility] Comment on above: Performed By: #### C HM6 #### [facility] (DEFAULT) [address] [place] [address] Creatinine [Mass/Vol] 1.62 mg/dL High 0.70-1.30 [facility] Comment on above: Performed By: #### C HM6 #### [facility] (DEFAULT) [address] [place] [address] GFR/1.73 sq M.predicted among non-blacks MDRD (S/P/Bld) [Vol rate/Area] 51 mL/min/{1.73_m2} Low >=60 [facility] Comment on above: Result Comment: Repo rted eGFR is based on the CKD-EPI 2020 equation using creatinine, age, and sex. Performed By: #### C HM6 #### [facility] (DEFAULT) [address] [place] [address] Potassium [Moles/Vol] 4.3 mmol/L Normal 3.5-5.0 [facility] Comment on above: Performed By: #### C HM6 #### [facility] (DEFAULT) [address] [place] [address] Sodium [Moles/Vol] 134 mmol/L Low 135-145 [facility] Comment on above: Performed By: #### C HM6 #### [facility] (DEFAULT) [address] [place] [address] Urea nitrogen [Mass/Vol] 22 mg/dL Normal 7-25 [facility] Comment on above: Performed By: #### C HM6 #### [facility] (DEFAULT) [address] [place] [address] Urea nitrogen/Creatinine [Mass ratio] 14 mg/mg Normal [facility] Comment on above: Performed By: #### C HM6 #### [facility] (DEFAULT) [address] [place] [address] Anion gap [Moles/Vol] 13 mmol/L 7 - 17 mmol/L [facility] Chloride [Moles/Vol] 103 mmol/L 98 - 10 8 mmol/L [facility] CO2 [Moles/Vol] 22 mmol/L 21 - 31 mmol/L [facility] Creatinine [Mass/Vol] 1.62 mg/dL High 0.70 - 1.30 mg/dL [facility] eGFR, CKD-EPI, Male 51 Low - PINF [facility] Interpretation and review of laboratory results Abnormal [facility] Potassium [Moles/Vol] 4.3 mmol/L 3.5 - 5.0 mmol/L [facility] Sodium [Moles/Vol] 134 mmol/L Low 135 - 145 mmol/L [facility] Urea nitrogen [Mass/Vol] 22 mg/dL 7 - 25 mg/dL [facility] Urea nitrogen/Creatinine [Mass ratio] 14 mg/[facility]MM[facility]OC[facility]PROMISED RESPIRATOR Y PANELon 08-28-2023 Adenovirus - Pcr Not detected Normal Not Detected [facility] Comment on above: Order Comment: Viral transport media (red screw top with red liquid media) or respiratory fluids or tissue - Collection must be done while wearing N-95 mask, eye protection, gown and gloves. Please label ALL specimens as 2019-nCoV rule out and deliver by handResults should be used in conjunction with other clinical and laboratory findings. This result does not rule out co-infections with pathogens that are not screened for by the Respiratory Panel(RP). This RP assay was performed using a Film Array multiplex nucleic acid assay. Performed By: #### [facility] #### [facility] (DEFAULT) [address] [place] [address] Bordetella Parapertussis Not detected Normal Not Detected [facility] Comment on above: Order Comment: Viral transport media (red screw top with red liquid media) or respiratory fluids or tissue - Collection must be done while wearing N-95 mask, eye protection, gown and gloves. Please label ALL specimens as 2019-nCoV rule out and deliver by handResults should be used in conjunction with other clinical and laboratory findings. This result does not rule out co-infections with pathogens that are not screened for by the Respiratory Panel(RP). This RP assay was performed using a Film Array multiplex nucleic acid assay. Performed By: #### [facility] #### [facility] (DEFAULT) [address] [address] Bordetella Pertussis Not detected Normal Not Detected [facility] Comment on above: Order Comment: Viral transport media (red screw top with red liquid media) or respiratory fluids or tissue - Collection must be done while wearing N-95 mask, eye protection, gown and gloves. Please label ALL specimens as 2019-nCoV rule out and deliver by handResults should be used in conjunction with other clinical and laboratory findings. This result does not rule out co-infections with pathogens that are not screened for by the Respiratory Panel(RP). This RP assay was performed using a Film Array multiplex nucleic acid assay. Performed By: #### [facility] #### [facility] (DEFAULT) [address] [place] [address] Chlamydia Pneumoniae Not detected Normal Not Detected [facility] Comment on above: Order Comment: Viral transport media (red screw top with red liquid media) or respiratory fluids or tissue - Collection must be done while wearing N-95 mask, eye protection, gown and gloves. Please label ALL specimens as 2019-nCoV rule out and deliver by handResults should be used in conjunction with other clinical and laboratory findings. This result does not rule out co-infections with pathogens that are not screened for by the Respiratory Panel(RP). This RP assay was performed using a Film Array multiplex nucleic acid assay. Performed By: #### H EMO #### [facility]DEFAULT[facility] [address] [place] [address] Coronavirus 229E Not detected Normal Not Detected [facility] Comment on above: Order Comment: Viral transport media (red screw top with red liquid media) or respiratory fluids or tissue - Collection must be done while wearing N-95 mask, eye protection, gown and gloves. Please label ALL specimens as 2019-nCoV rule out and deliver by handResults should be used in conjunction with other clinical and laboratory findings. This result does not rule out co-infections with pathogens that are not screened for by the Respiratory Panel(RP). This RP assay was performed using a Film Array multiplex nucleic acid assay. Performed By: #### H EMOGC #### [facility] (DEFAULT[facility] [address] [place] [address] Coronavirus Hku1 Not detected Normal Not Detected [facility] Comment on above: Order Comment: Viral transport media (red screw top with red liquid media) or respiratory fluids or tissue - Collection must be done while wearing N-95 mask, eye protection, gown and gloves. Please label ALL specimens as 2019-nCoV rule out and deliver by handResults should be used in conjunction with other clinical and laboratory findings. This result does not rule out co-infections with pathogens that are not screened for by the Respiratory Panel(RP). This RP assay was performed using a Film Array multiplex nucleic acid assay. Performed By: #### [facility] #### [facility] (DEFAULT) [address] [address] Coronavirus Nl63 Not detected Normal Not Detected [facility] Comment on above: Order Comment: Viral transport media (red screw top with red liquid media) or respiratory fluids or tissue - Collection must be done while wearing N-95 mask, eye protection, gown and gloves. Please label ALL specimens as 2019-nCoV rule out and deliver by handResults should be used in conjunction with other clinical and laboratory findings. This result does not rule out co-infections with pathogens that are not screened for by the Respiratory Panel(RP). This RP assay was performed using a Film Array multiplex nucleic acid assay. Performed By: #### [facility] #### [facility] (DEFAULT) [address] [place] [address] Coronavirus Oc43 Not detected Normal Not Detected [facility] Comment on above: Order Comment: Viral transport media (red screw top with red liquid media) or respiratory fluids or tissue - Collection must be done while wearing N-95 mask, eye protection, gown and gloves. Please label ALL specimens as 2019-nCoV rule out and deliver by handResults should be used in conjunction with other clinical and laboratory findings. This result does not rule out co-infections with pathogens that are not screened for by the Respiratory Panel(RP). This RP assay was performed using a Film Array multiplex nucleic acid assay. Performed By: #### H EMO #### [facility] (DEFAULT) [address] [address] Influenza A - Pcr Not detected Normal Not Detected [facility] Comment on above: Order Comment: Viral transport media (red screw top with red liquid media) or respiratory fluids or tissue - Collection must be done while wearing N-95 mask, eye protection, gown and gloves. Please label ALL specimens as 2019-nCoV rule out and deliver by handResults should be used in conjunction with other clinical and laboratory findings. This result does not rule out co-infections with pathogens that are not screened for by the Respiratory Panel(RP). This RP assay was performed using a Film Array multiplex nucleic acid assay. Performed By: #### [facility] #### [facility] (DEFAULT) [address] [place] [address] Influenza B - Pcr Not detected Normal Not Detected [facility] Comment on above: Order Comment: Viral transport media (red screw top with red liquid media) or respiratory fluids or tissue - Collection must be done while wearing N-95 mask, eye protection, gown and gloves. Please label ALL specimens as 2019-nCoV rule out and deliver by handResults should be used in conjunction with other clinical and laboratory findings. This result does not rule out co-infections with pathogens that are not screened for by the Respiratory Panel(RP). This RP assay was performed using a Film Array multiplex nucleic acid assay. Performed By: #### [facility] #### [facility] (DEFAULT) [address] [place] [address] Metapneumovirus - Pcr Not detected Normal Not Detected [facility] Comment on above: Order Comment: Viral transport media (red screw top with red liquid media) or respiratory fluids or tissue - Collection must be done while wearing N-95 mask, eye protection, gown and gloves. Please label ALL specimens as 2019-nCoV rule out and deliver by handResults should be used in conjunction with other clinical and laboratory findings. This result does not rule out co-infections with pathogens that are not screened for by the Respiratory Panel(RP). This RP assay was performed using a Film Array multiplex nucleic acid assay. Performed By: #### [facility] #### [facility] (DEFAULT) [address] [place] [address] Mycoplasma Pneumoniae Not detected Normal Not Detected [facility] Comment on above: Order Comment: Viral transport media (red screw top with red liquid media) or respiratory fluids or tissue - Collection must be done while wearing N-95 mask, eye protection, gown and gloves. Please label ALL specimens as 2019-nCoV rule out and deliver by handResults should be used in conjunction with other clinical and laboratory findings. This result does not rule out co-infections with pathogens that are not screened for by the Respiratory Panel(RP). This RP assay was performed using a Film Array multiplex nucleic acid assay. Performed By: #### [facility] #### [facility] (DEFAULT) [address] [address] Parainfluenza 1 - Pcr Not detected Normal Not Detected [facility] Comment on above: Order Comment: Viral transport media (red screw top with red liquid media) or respiratory fluids or tissue - Collection must be done while wearing N-95 mask, eye protection, gown and gloves. Please label ALL specimens as 2019-nCoV rule out and deliver by handResults should be used in conjunction with other clinical and laboratory findings. This result does not rule out co-infections with pathogens that are not screened for by the Respiratory Panel(RP). This RP assay was performed using a Film Array multiplex nucleic acid assay. Performed By: #### [facility] #### [facility] (DEFAULT) [address] [address] Parainfluenza 2 - Pcr Not detected Normal Not Detected [facility] Comment on above: Order Comment: Viral transport media (red screw top with red liquid media) or respiratory fluids or tissue - Collection must be done while wearing N-95 mask, eye protection, gown and gloves. Please label ALL specimens as 2019-nCoV rule out and deliver by handResults should be used in conjunction with other clinical and laboratory findings. This result does not rule out co-infections with pathogens that are not screened for by the Respiratory Panel(RP). This RP assay was performed using a Film Array multiplex nucleic acid assay. Performed By: #### H EMO #### [facility] (DEFAULT) [address] [address] Parainfluenza 3 - Pcr Not detected Normal Not Detected [facility] Comment on above: Order Comment: Viral transport media (red screw top with red liquid media) or respiratory fluids or tissue - Collection must be done while wearing N-95 mask, eye protection, gown and gloves. Please label ALL specimens as 2019-nCoV rule out and deliver by handResults should be used in conjunction with other clinical and laboratory findings. This result does not rule out co-infections with pathogens that are not screened for by the Respiratory Panel(RP). This RP assay was performed using a Film Array multiplex nucleic acid assay. Performed By: #### [facility] #### [facility] (DEFAULT) [address] [address] Parainfluenza 4 - Pcr Not detected Normal Not Detected [facility] Comment on above: Order Comment: Viral transport media (red screw top with red liquid media) or respiratory fluids or tissue - Collection must be done while wearing N-95 mask, eye protection, gown and gloves. Please label ALL specimens as 2019-nCoV rule out and deliver by handResults should be used in conjunction with other clinical and laboratory findings. This result does not rule out co-infections with pathogens that are not screened for by the Respiratory Panel(RP). This RP assay was performed using a Film Array multiplex nucleic acid assay. Performed By: #### H EMO #### [facility]DEFAULT[facility] [address] [address] Rhinovirus/Enteroviru s - PCR Not detected Normal Not Detected [facility] Comment on above: Order Comment: Viral transport media (red screw top with red liquid media) or respiratory fluids or tissue - Collection must be done while wearing N-95 mask, eye protection, gown and gloves. Please label ALL specimens as 2019-nCoV rule out and deliver by handResults should be used in conjunction with other clinical and laboratory findings. This result does not rule out co-infections with pathogens that are not screened for by the Respiratory Panel(RP). This RP assay was performed using a Film Array multiplex nucleic acid assay. Performed By: #### H EMO #### [facility] (DEFAULT[facility] [address] [address] Rsv - Pcr Not detected Normal Not Detected [facility] Comment on above: Order Comment: Viral transport media (red screw top with red liquid media) or respiratory fluids or tissue - Collection must be done while wearing N-95 mask, eye protection, gown and gloves. Please label ALL specimens as 2019-nCoV rule out and deliver by handResults should be used in conjunction with other clinical and laboratory findings. This result does not rule out co-infections with pathogens that are not screened for by the Respiratory Panel(RP). This RP assay was performed using a Film Array multiplex nucleic acid assay. Performed By: #### [facility] [place] [facility] #### [facility] (DEFAULT) [address] [place] [id number] SARS-CoV-2 (COVID-19) RNA ESTELITA+probe Ql (Unsp spec) Not detected Normal NOT DETECTED [facility] Comment on above: Order Comment: Viral transport media (red screw top with red liquid media) or respiratory fluids or tissue - Collection must be done while wearing N-95 mask, eye protection, gown and gloves. Please label ALL specimens as 2019-nCoV rule out and deliver by handResults should be used in conjunction with other clinical and laboratory findings. This result does not rule out co-infections with pathogens that are not screened for by the Respiratory Panel(RP). This RP assay was performed using a Film Array multiplex nucleic acid assay. Performed By: #### [facility] [place] #### [facility] (DEFAULT) [address] [place] [id number] Portable XR Chest Viewson Radiology Study observation (narrative) [facility] Respiratory virus DNA+RNA NA A+probe Nom (Unsp spec)Ordered By: Dayami Harris on 08-28-2023 Adenovirus DNA ESTELITA+probe Nom (Unsp spec) Not detected Not Detected [facility] B. parapertussis DNA ESTELITA+probe Ql (Unsp spec) Not detected Not Detected [facility] B. pertussis DNA ESTELITA+probe Ql (Unsp spec) Not detected Not Detected [facility] C. pneumoniae DNA ESTELITA+probe Ql (Unsp spec) Not detected Not Detected [facility] FLUAV RNA ESTELITA+probe Ql (Unsp spec) Not detected Not Detected [facility] FLUBV RNA ESTELITA+probe Ql (Unsp spec) Not detected Not [facility] HCoV 229E RNA ESTELITA+non-probe Ql (Nph) Not detected Not Detect[facility] HCoV HKU1 RNA ESTELITA+non-probe Ql (Nph) Not detected Not Detect[facility] HCoV NL63 RNA ESTELITA+non-probe Ql (Nph) Not detected Not Detected [facility] HCoV OC43 RNA ESTELITA+non-probe Ql (Nph) Not detected Not Detected [facility] hMPV A RNA ESTELITA+probe Ql (Unsp spec) Not detected Not Detected [facility] Interpretation and review of laboratory results Normal [facility] M. pneumoniae DNA ESTELITA+probe Ql (Unsp spec) Not detected Not Detect[facility] Parainfluenza virus 1 RNA ESTELITA+probe Ql (Unsp spec) Not detected Not Detect[facility] Parainfluenza virus 2 RNA ESTELITA+probe Ql (Unsp spec) Not detected Not Detect[facility] Parainfluenza virus 3 RNA ESTELITA+probe Ql (Unsp spec) Not detected Not Detected [facility] Parainfluenza virus 4 RNA ESTELITA+probe Ql (Unsp spec) Not detected Not Detected [facility] Rhinovirus+Enteroviru s RNA ESTELITA+probe Ql (Unsp spec) Not detected Not Detected [facility] RSV RNA ESTELITA+probe Ql (Unsp spec) Not detected Not Detected [facility] SARS-CoV-2 (COVID-19) RNA ESTELITA+probe Ql (Unsp spec) Not detected NOT DETECTED [facility] ALBUMINon 04-28-2023 Albumin [Mass/Vol] 4.0 g/dL Normal 3.4-5.0 [facility] Comment on above: Performed By: #### C MP #### [facility] [address] [place] [address] Dr. Dwight Waters ALKALINE PHOSPHAon 05-30-202 3 ALP [Catalytic activity/Vol] 106 U/L Normal 46-116 [facility] Comment on above: Performed By: #### F [id number] #### [facility] [address] [place] [address] Dr. Dwight Waters BILIRUBIN CONJUGATED (DIRECT )on 04-28-2023 BILI, CONJUGATED 0.3 mg/dL Critically high 0.0-0.2 [facility] Comment on above: Performed By: #### C MP #### [facility] [address] [place] [address] Dr. Dwight Waters BILIRUBIN TOTALon 04-28-2023 Bilirubin [Mass/Vol] 1.4 mg/dL Critically high 0.2-1.0 [facility] Comment on above: Performed By: #### C MP #### [facility] [address] [place] [address] Dr. Dwight Waters BUNon 04-28-2023 Urea nitrogen [Mass/Vol] 12.0 mg/dL Normal 7.0-18.0 [facility] Comment on above: Performed By: #### U RTPCR #### [facility] [address] [place] [address] Dr. Dwight Waters CALCIUMon 04-28-2023 Calcium [Mass/Vol] 9.3 mg/dL Normal 8.5-10.1 [facility] Comment on above: Performed By: #### U RTPCR #### [facility] [address] [place] [address] Dr. Dwight Waters CBC AUTO DIFFon 04-28-2023 BASO # 0.1 103/ul Normal 0.0-0.1 [facility] Comment on above: Performed By: #### C BC #### [facility] [address] [place] [address] Dr. Dwight Waters Basophils/100 WBC (Bld) 0.9 % Normal 0.2-2.0 [facility] Comment on above: Performed By: #### C BC #### [facility] [address] [place] [address] Dr. Dwight Waters EO # 0.2 103/ul Normal 0.0-0.7 [facility] Comment on above: Performed By: #### C BC #### [facility] [address] [place] [address] Dr. Dwight Waters Eosinophils/100 WBC (Bld) 3.8 % Normal 0.9-7.0 [facility] Comment on above: Performed By: #### C BC #### [facility] [address] [place] [address] Dr. Dwight Waters Erythrocyte distribution width (RBC) [Ratio] 12.5 % Normal 11.0-15.0 [facility] Comment on above: Performed By: #### C BC #### [facility] [address] [place] [address] Dr. Dwight Waters Hematocrit (Bld) [Volume fraction] 49.8 % Normal 42.0-54.0 [facility] Comment on above: Performed By: #### C BC #### [facility] [address] [place] [address] Dr. Dwight Waters Hemoglobin (Bld) [Mass/Vol] 16.4 g/dL Normal 14.0-18.0 [facility] Comment on above: Performed By: #### C BC #### [facility] [address] [place] [address] Dr. Dwight Waters IG # 0.01 10e3/ul Normal 0.00-0.03 [facility] Comment on above: Performed By: #### C BC #### [facility] [address] [place] [address] Dr. Dwight Waters IG % 0.2 % Normal 0.0-0.5 [facility] Comment on above: Performed By: #### C BC #### [facility] [address] [place] [address] Dr. Dwight Waters LYMPH # 2.1 103/ul Normal 1.2-3.8 [facility] Comment on above: Performed By: #### C BC #### [facility] [address] [place] [address] Dr. Dwight Waters Lymphocytes/100 WBC (Bld) 39.1 % Normal 20.5-60.0 [facility] Comment on above: Performed By: #### C BC #### [facility] [address] [place] [address] Dr. Dwight Waters MANUAL DIFF REQ NO Normal [facility] Comment on above: Performed By: #### C BC #### [facility] [address] [place] [address] Dr. Dwight Waters MCH (RBC) [Entitic mass] 28.6 pg Normal 25.9-34.0 [facility] Comment on above: Performed By: #### C BC #### [facility] [address] [place] [address] Dr. Dwight Waters MCHC (RBC) [Mass/Vol] 32.9 g/dL Normal 29.9-35.2 [facility] Comment on above: Performed By: #### C BC #### [facility] [address] [place] [address] Dr. Dwight Waters MCV (RBC) [Entitic vol] 86.9 fL Normal 80.0-94.0 [facility] Comment on above: Performed By: #### C BC #### [facility] [address] [place] [address] Dr. Dwight Waters MONO # 0.6 103/ul Normal 0.3-0.8 [facility] Comment on above: Performed By: #### C BC #### [facility] [address] [place] [address] Dr. Dwight Waters Monocytes/100 WBC (Bld) 10.6 % Normal 1.7-12.0 [facility] Comment on above: Performed By: #### C BC #### [facility] [address] [place] [address] Dr. Dwight Waters NEUT # 2.5 103/ul Normal 1.4-6.5 [facility] Comment on above: Performed By: #### C BC #### [facility] [address] [place] [address] Dr. Dwight Waters Neutrophils/100 WBC (Bld) 45.4 % Normal 43.0-75.0 [facility] Comment on above: Performed By: #### C BC #### [facility] [address] [place] [address] Dr. Dwight Waters Platelet mean volume (Bld) [Entitic vol] 9.3 fL Critically low 9.5-13.5 [facility] Comment on above: Performed By: #### C BC #### [facility] [address] [place] [address] Dr. Dwight Waters PLT 248 103/ul Normal 150-450 [facility] Comment on above: Performed By: #### C BC #### [facility] [address] [place] [address] Dr. Dwight Waters RBC 5.73 106/ul Normal 4.70-6.10 [facility] Comment on above: Performed By: #### C BC #### [facility] [address] [place] [address] Dr. Dwight Waters WBC 5.5 103/ul Normal 4.0-11.0 [facility] Comment on above: Performed By: #### C BC #### [facility] [address] [place] [address] Dr. Dwight Waters CHLORIDEon 04-28-2023 Chloride [Moles/Vol] 107 mmol/L Normal 98-107 [facility] Comment on above: Performed By: #### U RTPCR #### [facility] [address] [place] [address] Dr. Dwight Waters CO2on 04-28-2023 CO2 [Moles/Vol] 28.9 mmol/L Normal 21.0-32.0 [facility] Comment on above: Performed By: #### U RTPCR #### [facility] [address] [place] [address] Dr. Dwight Waters CREATININEon 04-28-2023 Creatinine [Mass/Vol] 1.17 mg/dL Normal 0.70-1.30 [facility] Comment on above: Performed By: #### U RTPCR #### [facility] [address] [place] [address] Dr. Dwight Waters EGFR-AF DANISH >60 Normal >=60 [facility] Comment on above: Performed By: #### U RTPCR #### [facility] [address] [place] [address] Dr. Dwight Waters EGFR-NON AF DANISH >60 Normal >=60 [facility] Comment on above: Performed By: #### U RTPCR #### [facility] [address] [place] [address] Dr. Dwight Waters GGTon 04-28-2023 Gamma glutamyl transferase [Catalytic activity/Vol] 27 U/L Normal 15-85 [facility] Comment on above: Performed By: #### U RTPCR #### [facility] [address] [place] [address] Dr. Dwight Waters GLUCOSE BLOODon 04-28-2023 Glucose [Mass/Vol] 110 mg/dL Critically high 74-106 [facility] Comment on above: Performed By: #### U RTPCR #### [facility] [address] [place] [address] Dr. Dwight Waters MAGNESIUMon 04-28-2023 Magnesium [Mass/Vol] 1.7 mg/dL Critically low 1.8-2.4 [facility] Comment on above: Performed By: #### U RTPCR #### [facility] [address] [place] [address] Dr. Dwight Waters NAon 04-28-2023 Sodium [Moles/Vol] 144 mmol/L Normal 136-145 [facility] Comment on above: Performed By: #### U RTPCR #### [facility] [address] [place] [address] Dr. Dwight Waters PHOSPHORUSon 04-28-2023 Phosphate [Mass/Vol] 3.2 mg/dL Normal 2.6-4.7 [facility] Comment on above: Performed By: #### U RTPCR #### [facility] [address] [place] [address] Dr. Dwight Waters POTASSIUMon 04-28-2023 Potassium [Moles/Vol] 4.0 mmol/L Normal 3.5-5.1 [facility] Comment on above: Performed By: #### U RTPCR #### [facility] [address] [place] [address] Dr. Dwight Waters SGOTon 04-28-2023 AST [Catalytic activity/Vol] 25 U/L Normal 15-37 [facility] Comment on above: Performed By: #### C MP #### [facility] [address] [place] [address] Dr. Dwight Waters SGPTon 04-28-2023 ALT [Catalytic activity/Vol] 40 U/L Normal 16-63 [facility] Comment on above: Performed By: #### C MP #### [facility] [address] [place] [address] Dr. Dwight Waters URINE T PROTEIN CREAT RATIOo 04-28-2023 Protein (U) [Mass/Vol] 10.1 mg/dL Normal <=12.0 [facility] Comment on above: Performed By: #### U RTPCR #### [facility] [address] [place] [address] Dr. Dwight Waters UR PROT CREAT RAT 0.14 Normal [facility] Comment on above: Performed By: #### U RTPCR #### [facility] [address] [place] [address] Dr. Dwight Waters URINE CREAT 74.40 mg/dL Normal 20.00-300.00 [facility] Comment on above: Performed By: #### U RTPCR #### [facility] [address] [place] [address] Dr. Dwight Waters Office Visiton 04-13-2023 Follow-up visit [id number] George Styles 1970 M Date Provider Department Center 04/13/2023 MIGUEL PARADA [facility] Family History Problem Relation Age of Onset Coronary artery disease Mother Coronary artery disease Father Family Status - Relation Status Age at Mother Father Level of Service:24607 [place] OFFICE/OUTPATIENT ESTABLISHED LOW MDM 20-29 MIN Reason for Visit and Comments: Hypertension [617767] Hyperlipidemia [182] Normal [facility] BK VIRUS PCR QUANTon 023 BKV DNA QUANT PCR PLASMA Negative Normal Negative [facility] Comment on above: Result Comment: No B K DNA detected. . The linear range of the assay is 22 - 100,000,000 IU/mL. Performed By: #### B KVIRUS #### [facility] [address] [place] [address] Dr. Dwight Waters Log10 BKV DNA Plasma Normal [facility] Comment on above: Performed By: #### B KVIRUS #### [facility] [address] [place] [address] Dr. Dwight Waters FK506 (TACROLIMUS) WHOLE BLO ODon 03-04-2023 Tacrolimus (FK506), Blood 5.9 ng/mL Normal 2.0-20.0 [facility] Comment on above: Result Comment: Trou gh (immediately following transplant) 15.0 . Trough (steady state, 2 weeks or more after transplant): 3.0 - 8.0 . Performed by LC-MS/MS technology. Performed By: #### C MP #### [facility] [address] [place] [address] Dr. Dwight Waters ALBUMINon 03-02-2023 Albumin [Mass/Vol] 3.9 g/dL Normal 3.4-5.0 [facility] Comment on above: Performed By: #### U RTPCR #### [facility] [address] [place] [address] Dr. Dwight Waters ALKALINE PHOSPHAon ALP [Catalytic activity/Vol] 105 U/L Normal 46-116 [facility] Comment on above: Performed By: #### U RTPCR #### [facility] [address] [place] [address] Dr. Dwight Waters BILIRUBIN CONJUGATED (DIRECT )on 03-02-2023 BILI, CONJUGATED 0.2 mg/dL Normal 0.0-0.2 [facility] Comment on above: Performed By: #### U RTPCR #### [facility] [address] [place] [address] Dr. Dwight Waters BILIRUBIN TOTALon 03-02-2023 Bilirubin [Mass/Vol] 0.9 mg/dL Normal 0.2-1.0 [facility] Comment on above: Performed By: #### U RTPCR #### [facility] [address] [place] [address] Dr. Dwight Waters CBC AUTO DIFFon 03-02-2023 BASO # 0.1 103/ul Normal 0.0-0.1 [facility] Comment on above: Performed By: #### C BC #### [facility] [address] [place] [address] Dr. Dwight Waters Basophils/100 WBC (Bld) 0.9 % Normal 0.2-2.0 [facility] Comment on above: Performed By: #### C BC #### [facility] [address] [place] [address] Dr. Dwight Waters EO # 0.2 103/ul Normal 0.0-0.7 [facility] Comment on above: Performed By: #### C BC #### [facility] [address] [place] [address] Dr. Dwight Waters Eosinophils/100 WBC (Bld) 3.5 % Normal 0.9-7.0 [facility] Comment on above: Performed By: #### C BC #### [facility] [address] [place] [address] Dr. Dwight Waters Erythrocyte distribution width (RBC) [Ratio] 12.7 % Normal 11.0-15.0 [facility] Comment on above: Performed By: #### C BC #### [facility] [address] [place] [address] Dr. Dwight Waters Hematocrit (Bld) [Volume fraction] 48.2 % Normal 42.0-54.0 [facility] Comment on above: Performed By: #### C BC #### [facility] [address] [place] [address] Dr. Dwight Waters Hemoglobin (Bld) [Mass/Vol] 15.9 g/dL Normal 14.0-18.0 [facility] Comment on above: Performed By: #### C BC #### [facility] [address] [place] [address] Dr. Dwight Waters IG # 0.01 10e3/ul Normal 0.00-0.03 [facility] Comment on above: Performed By: #### C BC #### [facility] [address] [place] [address] Dr. Dwight Waters IG % 0.2 % Normal 0.0-0.5 [facility] Comment on above: Performed By: #### C BC #### [facility] [address] [place] [address] Dr. Dwight Waters LYMPH # 2.1 103/ul Normal 1.2-3.8 [facility] Comment on above: Performed By: #### C BC #### [facility] [address] [place] [address] Dr. Dwight Waters Lymphocytes/100 WBC (Bld) 37.4 % Normal 20.5-60.0 [facility] Comment on above: Performed By: #### C BC #### [facility] [address] [place] [address] Dr. Dwight Waters MANUAL DIFF REQ NO Normal [facility] Comment on above: Performed By: #### C BC #### [facility] [address] [place] [address] Dr. Dwight Waters MCH (RBC) [Entitic mass] 28.3 pg Normal 25.9-34.0 [facility] Comment on above: Performed By: #### C BC #### [facility] [address] [place] [address] Dr. Dwight Waters MCHC (RBC) [Mass/Vol] 33.0 g/dL Normal 29.9-35.2 [facility] Comment on above: Performed By: #### C BC #### [facility] [address] [place] [address] Dr. Dwight Waters MCV (RBC) [Entitic vol] 85.8 fL Normal 80.0-94.0 [facility] Comment on above: Performed By: #### C BC #### [facility] [address] [place] [address] Dr. Dwight Waters MONO # 0.6 103/ul Normal 0.3-0.8 [facility] Comment on above: Performed By: #### C BC #### [facility] [address] [place] [address] Dr. Dwight Waters Monocytes/100 WBC (Bld) 10.2 % Normal 1.7-12.0 [facility] Comment on above: Performed By: #### C BC #### [facility] [address] [place] [address] Dr. Dwight Waters NEUT # 2.7 103/ul Normal 1.4-6.5 [facility] Comment on above: Performed By: #### C BC #### [facility] [address] [place] [address] Dr. Dwight Waters Neutrophils/100 WBC (Bld) 47.8 % Normal 43.0-75.0 [facility] Comment on above: Performed By: #### C BC #### [facility] [address] [place] [address] Dr. Dwight Waters Platelet mean volume (Bld) [Entitic vol] 9.3 fL Critically low 9.5-13.5 [facility] Comment on above: Performed By: #### C BC #### [facility] [address] [place] [address] Dr. Dwight Waters PLT 241 103/ul Normal 150-450 [facility] Comment on above: Performed By: #### C BC #### [facility] [address] [place] [address] Dr. Dwight Waters RBC 5.62 106/ul Normal 4.70-6.10 [facility] Comment on above: Performed By: #### C BC #### [facility] [address] [place] [address] Dr. Dwight Waters WBC 5.7 103/ul Normal 4.0-11.0 [facility] Comment on above: Performed By: #### C BC #### [facility] [address] [place] [address] Dr. Dwight Waters GGTon 03-02-2023 Gamma glutamyl transferase [Catalytic activity/Vol] 25 U/L Normal 15-85 [facility] Comment on above: Performed By: #### U RTPCR #### [facility] [address] [place] [address] Dr. Dwight Waters MAGNESIUMon 04-03-2023 Magnesium [Mass/Vol] 1.6 mg/dL Critically low 1.8-2.4 [facility] Comment on above: Performed By: #### U RTPCR #### [facility] [address] [place] [address] Dr. Dwight Waters PHOSPHORUSon 03-02-2023 Phosphate [Mass/Vol] 3.6 mg/dL Normal 2.6-4.7 [facility] Comment on above: Performed By: #### U RTPCR #### [facility] [address] [place] [address] Dr. Dwight Waters PROF CHEM 8 (BAS METB)on Anion gap [Moles/Vol] 9.4 mmol/L Normal [facility] Comment on above: Performed By: #### U RTPCR #### [facility] [address] [place] [address] Dr. Dwight Waters Calcium [Mass/Vol] 9.3 mg/dL Normal 8.5-10.1 [facility] Comment on above: Performed By: #### U RTPCR #### [facility] [address] [place] [address] Dr. Dwight Waters Chloride [Moles/Vol] 108 mmol/L Critically high 98-107 [facility] Comment on above: Performed By: #### U RTPCR #### [facility] [address] [place] [address] Dr. Dwight Waters CO2 [Moles/Vol] 27.2 mmol/L Normal 21.0-32.0 [facility] Comment on above: Performed By: #### U RTPCR #### [facility] [address] [place] [address] Dr. Dwight Waters Creatinine [Mass/Vol] 1.12 mg/dL Normal 0.70-1.30 [facility] Comment on above: Performed By: #### U RTPCR #### [facility] [address] [place] [address] Dr. Dwight Waters EGFR-AF DANISH >60 Normal >=60 [facility] Comment on above: Performed By: #### U RTPCR #### [facility] [address] [place] [address] Dr. Dwight Waters EGFR-NON AF DANISH >60 Normal >=60 [facility] Comment on above: Performed By: #### U RTPCR #### [facility] [address] [address] [address] Dwight Waters Glucose [Mass/Vol] 113 mg/dL Critically high 74-106 [facility] Comment on above: Performed By: #### U RTPCR #### [facility] [address] [address] [address] Dwight Waters Potassium [Moles/Vol] 3.6 mmol/L Normal 3.5-5.1 [facility] Comment on above: Performed By: #### U RTPCR #### [facility] [address] [place] [address] Dr. Dwight Waters Sodium [Moles/Vol] 141 mmol/L Normal 136-145 [facility] Comment on above: Performed By: #### U RTPCR #### [facility] [address] [place] [address] Dr. Dwight Waters Urea nitrogen [Mass/Vol] 14.0 mg/dL Normal 7.0-18.0 [facility] Comment on above: Performed By: #### U RTPCR #### [facility] [address] [place] [address] Dr. Dwight Waters Urea nitrogen/Creatinine [Mass ratio] 12.5 mg/mg Normal [facility] Comment on above: Performed By: #### U RTPCR #### [facility] [address] [place] [address] Dr. Dwight Waters SGOTon 03-02-2023 AST [Catalytic activity/Vol] 20 U/L Normal 15-37 [facility] Comment on above: Performed By: #### U RTPCR #### [facility] [address] [place] [address] Dr. Dwight Waters SGPTon 03-02-2023 ALT [Catalytic activity/Vol] 30 U/L Normal 16-63 [facility] Comment on above: Performed By: #### U RTPCR #### [facility] [address] [place] [address] Dr. Dwight Watres URINE T PROTEIN CREAT RATIOo n 03-02-2023 Protein (U) [Mass/Vol] 10.3 mg/dL Normal <=12.0 [facility] Comment on above: Performed By: #### U RTPCR #### [facility] [address] [place] [address] Dr. Dwight Waters UR PROT CREAT RAT 0.15 Normal [facility] Comment on above: Performed By: #### U RTPCR #### [facility] [address] [place] [address] Dr. Dwight Waters URINE CREAT 68.96 mg/dL Normal 20.00-300.00 [facility] Comment on above: Performed By: #### U RTPCR #### [facility] [address] [place] [address] Dr. Dwight Waters BK VIRUS PCR QUANTon 023 BKV DNA QUANT PCR PLASMA Negative Normal Negative [facility] Comment on above: Result Comment: No B K DNA detected. . The linear range of the assay is 22 - 100,000,000 IU/mL. Performed By: #### C MP #### [facility] [address] [place] [address] Dr. Dwight Waters Log10 BKV DNA Plasma Normal [facility] Comment on above: Performed By: #### C MP #### [facility] [address] [place] [address] Dr. Dwight Waters FK506 (TACROLIMUS) WHOLE BLO ODon 12-31-2022 Tacrolimus (FK506), Blood 5.6 ng/mL Normal 2.0-20.0 [facility] Comment on above: Result Comment: Trou gh (immediately following transplant) 15.0 . Trough (steady state, 2 weeks or more after transplant): 3.0 - 8.0 . Performed by LC-MS/MS technology. Performed By: #### C MP #### [facility] [address] [place] [address] Dr. Dwight Waters ALKALINE PHOSPHAon ALP [Catalytic activity/Vol] 96 U/L Normal 46-116 [facility] Comment on above: Performed By: #### C BC #### [facility] [address] [place] [address] Dr. Dwight Waters BILIRUBIN CONJUGATED (DIRECT )on 12-29-2022 BILI, CONJUGATED 0.3 mg/dL Critically high 0.0-0.2 [facility] Comment on above: Performed By: #### C BC #### [facility] [address] [place] [address] Dr. Dwight Waters BILIRUBIN TOTALon 12-29-2022 Bilirubin [Mass/Vol] 1.1 mg/dL Critically high 0.2-1.0 [facility] Comment on above: Performed By: #### C BC #### [facility] [address] [place] [address] Dr. Dwight Waters CBC AUTO DIFFon 12-29-2022 BASO # 0.1 103/ul Normal 0.0-0.1 [facility] Comment on above: Performed By: #### C MP #### [facility] [address] [place] [address] Dr. Dwight Waters Basophils/100 WBC (Bld) 0.8 % Normal 0.2-2.0 [facility] Comment on above: Performed By: #### C MP #### [facility] [address] [place] [address] Dr. Dwight Waters EO # 0.2 103/ul Normal 0.0-0.7 [facility] Comment on above: Performed By: #### C MP #### [facility] [address] [place] [address] Dr. Dwight Waters Eosinophils/100 WBC (Bld) 3.0 % Normal 0.9-7.0 [facility] Comment on above: Performed By: #### C MP #### [facility] [address] [place] [address] Dr. Dwight Waters Erythrocyte distribution width (RBC) [Ratio] 12.9 % Normal 11.0-15.0 [facility] Comment on above: Performed By: #### C MP #### [facility] [address] [place] [address] Dr. Dwight Waters Hematocrit (Bld) [Volume fraction] 46.9 % Normal 42.0-54.0 [facility] Comment on above: Performed By: #### C MP #### [facility] [address] [place] [address] Dr. Dwight Waters Hemoglobin (Bld) [Mass/Vol] 16.1 g/dL Normal 14.0-18.0 [facility] Comment on above: Performed By: #### C MP #### [facility] [address] [place] [address] Dr. Dwight Waters IG # 0.01 10e3/ul Normal 0.00-0.03 [facility] Comment on above: Performed By: #### C MP #### [facility] [address] [place] [address] Dr. Dwight Waters IG % 0.2 % Normal 0.0-0.5 [facility] Comment on above: Performed By: #### C MP #### [facility] [address] [place] [address] Dr. Dwight Waters LYMPH # 1.8 103/ul Normal 1.2-3.8 [facility] Comment on above: Performed By: #### C MP #### [facility] [address] [place] [address] Dr. Dwight Waters Lymphocytes/100 WBC (Bld) 27.9 % Normal 20.5-60.0 [facility] Comment on above: Performed By: #### C MP #### [facility] [address] [place] [address] Dr. Dwight Waters MANUAL DIFF REQ NO Normal [facility] Comment on above: Performed By: #### C MP #### [facility] [address] [place] [address] Dr. Dwight Waters MCH (RBC) [Entitic mass] 28.5 pg Normal 25.9-34.0 [facility] Comment on above: Performed By: #### C MP #### [facility] [address] [place] [address] Dr. Dwight Waters MCHC (RBC) [Mass/Vol] 34.3 g/dL Normal 29.9-35.2 [facility] Comment on above: Performed By: #### C MP #### [facility] [address] [place] [address] Dr. Dwight Waters MCV (RBC) [Entitic vol] 83.2 fL Normal 80.0-94.0 [facility] Comment on above: Performed By: #### C MP #### [facility] [address] [place] [address] Dr. Dwight Waters MONO # 0.5 103/ul Normal 0.3-0.8 [facility] Comment on above: Performed By: #### C MP #### [facility] [address] [place] [address] Dr. Dwight Waters Monocytes/100 WBC (Bld) 8.1 % Normal 1.7-12.0 [facility] Comment on above: Performed By: #### C MP #### [facility] [address] [place] [address] Dr. Dwight Waters NEUT # 3.8 103/ul Normal 1.4-6.5 [facility] Comment on above: Performed By: #### C MP #### [facility] [address] [place] [address] Dr. Dwight Waters Neutrophils/100 WBC (Bld) 60.0 % Normal 43.0-75.0 [facility] Comment on above: Performed By: #### C MP #### [facility] [address] [place] [address] Dr. Dwight Waters Platelet mean volume (Bld) [Entitic vol] 9.2 fL Critically low 9.5-13.5 [facility] Comment on above: Performed By: #### C MP #### [facility] [address] [place] [address] Dr. Dwight Waters PLT 225 103/ul Normal 150-450 [facility] Comment on above: Performed By: #### C MP #### [facility] [address] [place] [address] Dr. Dwight Waters RBC 5.64 106/ul Normal 4.70-6.10 [facility] Comment on above: Performed By: #### C MP #### [facility] [address] [address] [address] Dwight Waters WBC 6.3 103/ul Normal 4.0-11.0 [facility] Comment on above: Performed By: #### C MP #### [facility] [address] [address] [address] Dwight Waters GGTon 12-29-2022 Gamma glutamyl transferase [Catalytic activity/Vol] 24 U/L Normal 15-85 [facility] Comment on above: Performed By: #### C MP #### [facility] [address] [address] [address] Dwight Waters LIPID PROFILEon 12-29-2022 CHOL-HDL RATIO NORM SEE BELOW Normal [facility] Comment on above: Result Comment: 3.3 - 4.4 LOW RISK 4.4 - 7.1 AVERAGE RISK 7.1 - 11.0 MODERATE RISK >11.0 HIGH RISK Performed By: #### U RTPCR #### [facility] [address] [place] [address] Dr. Dwight Waters Cholesterol [Mass/Vol] 87 mg/dL Normal <=200 [facility] Comment on above: Performed By: #### U RTPCR #### [facility] [address] [place] [address] Dr. Dwight Waters Cholesterol in HDL [Mass/Vol] 44 mg/dL Normal 40-60 [facility] Comment on above: Performed By: #### U RTPCR #### [facility] [address] [address] [address] Dwight Waters Cholesterol in LDL [Mass/Vol] 33.0 mg/dL Normal [facility] Comment on above: Performed By: #### U RTPCR #### [facility] [address] [place] [address] Dr. Dwight Waters Cholesterol.total/Cho lesterol in HDL [Mass ratio] 2.0 {ratio} Normal [facility] Comment on above: Performed By: #### U RTPCR #### [facility] [address] [place] [address] Dr. Dwight Waters HDL NORMAL > or = 60 mg/dl - LO W CARDIOVASCULAR RISK <40 mg/dl - HIGH CARDIOVASCULAR RISK Normal [facility] Comment on above: Performed By: #### U RTPCR #### [facility] [address] [address] [address] Dwight Waters LDL CALC NORMAL SEE BELOW Normal [facility] Comment on above: Result Comment: <100 mg/dl OPTIMAL 100 - 129 mg/dl NEAR OR ABOVE OPTIMAL 130 - 159 mg/dl BORDERLINE HIGH 160 - 189 mg/dl HIGH >190 mg/dl VERY HIGH Performed By: #### U RTPCR #### [facility] [address] [address] [address] Dwight Waters Triglyceride [Mass/Vol] 50 mg/dL Normal <=150 [facility] Comment on above: Performed By: #### U RTPCR #### [facility] [address] [address] [address] Dwight Waters VLDL CALC 10.0 mg/dL Normal [facility] Comment on above: Performed By: #### U RTPCR #### [facility] [address] [address] [address] Dwight Waters MAGNESIUMon 12-29-2022 Magnesium [Mass/Vol] 1.6 mg/dL Critically low 1.8-2.4 [facility] Comment on above: Performed By: #### C BC #### [facility] [address] [address] [address] Dwight Waters RENAL FUNCTION PANELon 12-29 Albumin [Mass/Vol] 3.9 g/dL Normal 3.4-5.0 [facility] Comment on above: Performed By: #### C BC #### [facility] [address] [address] [address] Dwight Waters Calcium [Mass/Vol] 9.2 mg/dL Normal 8.5-10.1 [facility] Comment on above: Performed By: #### C BC #### [facility] [address] [address] [address] Dwight Waters Chloride [Moles/Vol] 109 mmol/L Critically high 98-107 [facility] Comment on above: Performed By: #### C BC #### [facility] [address] [address] [address] Dwight Waters CO2 [Moles/Vol] 27.0 mmol/L Normal 21.0-32.0 [facility] Comment on above: Performed By: #### C BC #### [facility] [address] [address] [address] Dwight Waters Creatinine [Mass/Vol] 1.02 mg/dL Normal 0.70-1.30 [facility] Comment on above: Performed By: #### C BC #### [facility] [address] [address] [address] Dwight Waters EGFR-AF DANISH >60 Normal >=60 [facility] Comment on above: Performed By: #### C BC #### [facility] [address] [place] [address] Dr. Dwight Waters EGFR-NON AF DANISH >60 Normal >=60 [facility] Comment on above: Performed By: #### C BC #### [facility] [address] [address] [address] Dwight Waters Glucose [Mass/Vol] 117 mg/dL Critically high 74-106 [facility] Comment on above: Performed By: #### C BC #### [facility] [address] [place] [address] Dr. Dwight Waters Phosphate [Mass/Vol] 3.2 mg/dL Normal 2.6-4.7 [facility] Comment on above: Performed By: #### C BC #### [facility] [address] [place] [address] Dr. Dwight Waters Potassium [Moles/Vol] 4.1 mmol/L Normal 3.5-5.1 [facility] Comment on above: Performed By: #### C BC #### [facility] [address] [address] [address] Dwight Waters Sodium [Moles/Vol] 144 mmol/L Normal 136-145 [facility] Comment on above: Performed By: #### C BC #### [facility] [address] [place] [address] Dr. Dwight Waters Urea nitrogen [Mass/Vol] 13.0 mg/dL Normal 7.0-18.0 [facility] Comment on above: Performed By: #### C BC #### [facility] [address] [place] [address] Dr. Dwight Waters SGOTon 12-29-2022 AST [Catalytic activity/Vol] 21 U/L Normal 15-37 [facility] Comment on above: Performed By: #### C BC #### [facility] [address] [place] [address] Dr. Dwight Waters SGPTon 12-29-2022 ALT [Catalytic activity/Vol] 32 U/L Normal 16-63 [facility] Comment on above: Performed By: #### C BC #### [facility] [address] [place] [address] Dr. Dwight Waters URINE T PROTEIN CREAT RATIOo n 12-29-2022 Protein (U) [Mass/Vol] 14.3 mg/dL Critically high <=12.0 [facility] Comment on above: Performed By: #### U RTPCR #### [facility] [address] [place] [address] Dr. Dwight Waters UR PROT CREAT RAT 0.17 Normal [facility] Comment on above: Performed By: #### U RTPCR #### [facility] [address] [place] [address] Dr. Dwight Waters URINE CREAT 86.58 mg/dL Normal 20.00-300.00 [facility] Comment on above: Performed By: #### U RTPCR #### [facility] [address] [place] [address] Dr. Dwight Waters FK506 (TACROLIMUS) WHOLE BLO ODon 11-06-2022 Tacrolimus (FK506), Blood 4.9 ng/mL Normal 2.0-20.0 [facility] Comment on above: Result Comment: Trou gh (immediately following transplant) 15.0 . Trough (steady state, 2 weeks or more after transplant): 3.0 - 8.0 . Performed by LC-MS/MS technology. Performed By: #### U RTPCR #### [facility] [address] [place] [address] Dr. Dwight Waters ALKALINE PHOSPHAon ALP [Catalytic activity/Vol] 86 U/L Normal 46-116 [facility] Comment on above: Performed By: #### U RTPCR #### [facility] [address] [place] [address] Dr. Dwight Waters BILIRUBIN CONJUGATED (DIRECT )on 11-04-2022 BILI, CONJUGATED 0.2 mg/dL Normal 0.0-0.2 [facility] Comment on above: Performed By: #### U RTPCR #### [facility] [address] [place] [address] Dr. Dwight Waters BILIRUBIN TOTALon 11-04-2022 Bilirubin [Mass/Vol] 0.8 mg/dL Normal 0.2-1.0 [facility] Comment on above: Performed By: #### U RTPCR #### [facility] [address] [place] [address] Dr. Dwight Waters CBC AUTO DIFFon 11-04-2022 BASO # 0.1 103/ul Normal 0.0-0.1 [facility] Comment on above: Performed By: #### U RTPCR #### [facility] [address] [place] [address] Dr. Dwight Waters Basophils/100 WBC (Bld) 0.9 % Normal 0.2-2.0 [facility] Comment on above: Performed By: #### U RTPCR #### [facility] [address] [place] [address] Dr. Dwight Waters EO # 0.2 103/ul Normal 0.0-0.7 [facility] Comment on above: Performed By: #### U RTPCR #### [facility] [address] [place] [address] Dr. Dwight Waters Eosinophils/100 WBC (Bld) 3.7 % Normal 0.9-7.0 [facility] Comment on above: Performed By: #### U RTPCR #### [facility] [address] [place] [address] Dr. Dwight Waters Erythrocyte distribution width (RBC) [Ratio] 12.9 % Normal 11.0-15.0 [facility] Comment on above: Performed By: #### U RTPCR #### [facility] [address] [place] [address] Dr. Dwight Waters Hematocrit (Bld) [Volume fraction] 48.3 % Normal 42.0-54.0 [facility] Comment on above: Performed By: #### U RTPCR #### [facility] [address] [place] [address] Dr. Dwight Waters Hemoglobin (Bld) [Mass/Vol] 15.6 g/dL Normal 14.0-18.0 [facility] Comment on above: Performed By: #### U RTPCR #### [facility] [address] [place] [address] Dr. Dwight Waters IG # 0.01 10e3/ul Normal 0.00-0.03 [facility] Comment on above: Performed By: #### U RTPCR #### [facility] [address] [place] [address] Dr. Dwight Waters IG % 0.2 % Normal 0.0-0.5 [facility] Comment on above: Performed By: #### U RTPCR #### [facility] [address] [place] [address] Dr. Dwight Waters LYMPH # 1.9 103/ul Normal 1.2-3.8 [facility] Comment on above: Performed By: #### U RTPCR #### [facility] [address] [place] [address] Dr. Dwight Waters Lymphocytes/100 WBC (Bld) 33.0 % Normal 20.5-60.0 [facility] Comment on above: Performed By: #### U RTPCR #### [facility] [address] [place] [address] Dr. Dwight Waters MANUAL DIFF REQ NO Normal [facility] Comment on above: Performed By: #### U RTPCR #### [facility] [address] [place] [address] Dr. Dwight Waters MCH (RBC) [Entitic mass] 27.6 pg Normal 25.9-34.0 [facility] Comment on above: Performed By: #### U RTPCR #### [facility] [address] [address] [address] Dwight Waters MCHC (RBC) [Mass/Vol] 32.3 g/dL Normal 29.9-35.2 [facility] Comment on above: Performed By: #### U RTPCR #### [facility] [address] [address] [address] Dwight Waters MCV (RBC) [Entitic vol] 85.5 fL Normal 80.0-94.0 [facility] Comment on above: Performed By: #### U RTPCR #### [facility] [address] [place] [address] Dr. Dwight Waters MONO # 0.5 103/ul Normal 0.3-0.8 [facility] Comment on above: Performed By: #### U RTPCR #### [facility] [address] [place] [address] Dr. Dwight Waters Monocytes/100 WBC (Bld) 8.8 % Normal 1.7-12.0 [facility] Comment on above: Performed By: #### U RTPCR #### [facility] Laboratory [address] [place] [address] Dr. Dwight Waters NEUT # 3.1 103/ul Normal 1.4-6.5 [facility] Comment on above: Performed By: #### U RTPCR #### [facility] Laboratory [address] [place] [address] Dr. Dwight Waters Neutrophils/100 WBC (Bld) 53.4 % Normal 43.0-75.0 [facility] Comment on above: Performed By: #### U RTPCR #### [facility] Laboratory [address] [place] [address] Dr. Dwight Waters Platelet mean volume (Bld) [Entitic vol] 9.2 fL Critically low 9.5-13.5 [facility] Comment on above: Performed By: #### U RTPCR #### [facility] Laboratory [address] [address] [address] Dwight Waters PLT 255 103/ul Normal 150-450 [facility] Comment on above: Performed By: #### U RTPCR #### [facility] Laboratory [address] [place] [address] Dr. Dwight Waters RBC 5.65 106/ul Normal 4.70-6.10 [facility] Comment on above: Performed By: #### U RTPCR #### [facility] Laboratory [address] [place] [address] Dr. Dwight Waters WBC 5.7 103/ul Normal 4.0-11.0 [facility] Comment on above: Performed By: #### U RTPCR #### [facility] Laboratory [address] [place] [address] Dr. Dwight Waters GGTon 11-04-2022 Gamma glutamyl transferase [Catalytic activity/Vol] 22 U/L Normal 15-85 [facility] Comment on above: Performed By: #### U RTPCR #### [facility] Laboratory [address] [place] [address] Dr. Dwight Waters MAGNESIUMon 11-04-2022 Magnesium [Mass/Vol] 1.8 mg/dL Normal 1.8-2.4 [facility] Comment on above: Performed By: #### U RTPCR #### [facility] Laboratory [address] [place] [address] Dr. Dwight Waters RENAL FUNCTION PANELon 11-04 Albumin [Mass/Vol] 3.8 g/dL Normal 3.4-5.0 [facility] Comment on above: Performed By: #### U RTPCR #### [facility] Laboratory [address] [place] [address] Dr. Dwight Waters Calcium [Mass/Vol] 9.3 mg/dL Normal 8.5-10.1 [facility] Comment on above: Performed By: #### U RTPCR #### [facility] Laboratory [address] [place] [address] Dr. Dwight Waters Chloride [Moles/Vol] 107 mmol/L Normal 98-107 [facility] Comment on above: Performed By: #### U RTPCR #### [facility] Laboratory [address] [address] [address] Dwight Waters CO2 [Moles/Vol] 29.2 mmol/L Normal 21.0-32.0 [facility] Comment on above: Performed By: #### U RTPCR #### [facility] Laboratory [address] [address] [address] Dwight Waters Creatinine [Mass/Vol] 1.07 mg/dL Normal 0.70-1.30 [facility] Comment on above: Performed By: #### U RTPCR #### [facility] Laboratory [address] [place] [address] Dr. Dwight Waters EGFR-AF DANISH >60 Normal >=60 [facility] Comment on above: Performed By: #### U RTPCR #### [facility] Laboratory [address] [place] [address] Dr. Dwight Waters EGFR-NON AF DANISH >60 Normal >=60 [facility] Comment on above: Performed By: #### U RTPCR #### [facility] Laboratory [address] [place] [address] Dr. Dwight Waters Glucose [Mass/Vol] 106 mg/dL Normal 74-106 [facility] Comment on above: Performed By: #### U RTPCR #### [facility] Laboratory [address] [place] [address] Dr. Dwight Waters Phosphate [Mass/Vol] 2.8 mg/dL Normal 2.6-4.7 [facility] Comment on above: Performed By: #### U RTPCR #### [facility] Laboratory [address] [place] [address] Dr. Dwight Waters Potassium [Moles/Vol] 4.1 mmol/L Normal 3.5-5.1 [facility] Comment on above: Performed By: #### U RTPCR #### [facility] Laboratory [address] [place] [address] Dr. Dwight Waters Sodium [Moles/Vol] 143 mmol/L Normal 136-145 [facility] Comment on above: Performed By: #### U RTPCR #### [facility] Laboratory [address] [place] [address] Dr. Dwight Waters Urea nitrogen [Mass/Vol] 12.0 mg/dL Normal 7.0-18.0 [facility] Comment on above: Performed By: #### U RTPCR #### [facility] Laboratory [address] [place] [address] Dr. Dwight Waters SGOTon 11-04-2022 AST [Catalytic activity/Vol] 19 U/L Normal 15-37 [facility] Comment on above: Performed By: #### U RTPCR #### [facility] Laboratory [address] [place] [address] Dr. Dwight Waters SGPTon 11-04-2022 ALT [Catalytic activity/Vol] 28 U/L Normal 16-63 [facility] Comment on above: Performed By: #### U RTPCR #### [facility] Laboratory [address] [place] [address] Dr. Dwight Waters URINE T PROTEIN CREAT RATIOo n 11-04-2022 Protein (U) [Mass/Vol] 10.7 mg/dL Normal <=12.0 [facility] Comment on above: Performed By: #### U RTPCR #### [facility] Laboratory [address] [place] [address] Dr. Dwight Waters UR PROT CREAT RAT 0.13 Normal [facility] Comment on above: Performed By: #### U RTPCR #### [facility] Laboratory [address] [place] [address] Dr. Dwight Waters URINE CREAT 84.50 mg/dL Normal 20.00-300.00 [facility] Comment on above: Performed By: #### U RTPCR #### [facility] Laboratory [address] [place] [address] Dr. Dwight Waters FK506 (TACROLIMUS) WHOLE BLO ODon 09-18-2022 Tacrolimus (FK506), Blood 4.6 ng/mL Normal 2.0-20.0 [facility] Comment on above: Result Comment: Trou gh (immediately following transplant) 15.0 . Trough (steady state, 2 weeks or more after transplant): 3.0 - 8.0 . Performed by LC-MS/MS technology. Performed By: #### U RTPCR #### [facility] Laboratory [address] [place] [address] Dr. Dwight Waters BK VIRUS PCR QUANTon 022 BKV DNA QUANT PCR PLASMA Negative Normal Negative [facility] Comment on above: Result Comment: No B K DNA detected. . The linear range of the assay is 22 - 100,000,000 IU/mL. Performed By: #### U RTPCR #### [facility] Laboratory [address] [place] [address] Dr. Dwight Waters Log10 BKV DNA Plasma Normal [facility] Comment on above: Performed By: #### U RTPCR #### [facility] Laboratory [address] [place] [address] Dr. Dwight Waters ALKALINE PHOSPHAon ALP [Catalytic activity/Vol] 92 U/L Normal 46-116 [facility] Comment on above: Performed By: #### U RTPCR #### [facility] Laboratory [address] [place] [address] Dr. Dwight Waters BILIRUBIN CONJUGATED (DIRECT )on 09-15-2022 BILI, CONJUGATED 0.3 mg/dL Critically high 0.0-0.2 [facility] Comment on above: Performed By: #### U RTPCR #### [facility] Laboratory [address] [place] [address] Dr. Dwight Waters BILIRUBIN TOTALon 09-15-2022 Bilirubin [Mass/Vol] 1.1 mg/dL Critically high 0.2-1.0 [facility] Comment on above: Performed By: #### U RTPCR #### [facility] Laboratory [address] [place] [address] Dr. Dwight Waters CBC AUTO DIFFon 09-15-2022 BASO # 0.1 103/ul Normal 0.0-0.1 [facility] Comment on above: Performed By: #### C BC #### [facility] Laboratory [address] [place] [address] Dr. Dwight Waters Basophils/100 WBC (Bld) 0.8 % Normal 0.2-2.0 [facility] Comment on above: Performed By: #### C BC #### [facility] Laboratory [address] [place] [address] Dr. Dwight Waters EO # 0.2 103/ul Normal 0.0-0.7 [facility] Comment on above: Performed By: #### C BC #### [facility] Laboratory [address] [place] [address] Dr. Dwight Waters Eosinophils/100 WBC (Bld) 3.5 % Normal 0.9-7.0 [facility] Comment on above: Performed By: #### C BC #### [facility] Laboratory [address] [place] [address] Dr. Dwigth Waters Erythrocyte distribution width (RBC) [Ratio] 13.0 % Normal 11.0-15.0 [facility] Comment on above: Performed By: #### C BC #### [facility] Laboratory [address] [place] [address] Dr. Dwight Waters Hematocrit (Bld) [Volume fraction] 50.0 % Normal 42.0-54.0 [facility] Comment on above: Performed By: #### C BC #### [facility] Laboratory [address] [place] [address] Dr. Dwight Waters Hemoglobin (Bld) [Mass/Vol] 16.0 g/dL Normal 14.0-18.0 [facility] Comment on above: Performed By: #### C BC #### [facility] Laboratory [address] [place] [address] Dr. Dwight Waters IG # 0.02 10e3/ul Normal 0.00-0.03 [facility] Comment on above: Performed By: #### C BC #### [facility] Laboratory [address] [place] [address] Dr. Dwight Waters IG % 0.3 % Normal 0.0-0.5 [facility] Comment on above: Performed By: #### C BC #### [facility] Laboratory [address] [place] [address] Dr. Dwight Waters LYMPH # 1.8 103/ul Normal 1.2-3.8 [facility] Comment on above: Performed By: #### C BC #### [facility] Laboratory [address] [place] [address] Dr. Dwight Waters Lymphocytes/100 WBC (Bld) 26.5 % Normal 20.5-60.0 [facility] Comment on above: Performed By: #### C BC #### [facility] Laboratory [address] [place] [address] Dr. Dwight Waters MANUAL DIFF REQ NO Normal [facility] Comment on above: Performed By: #### C BC #### [facility] Laboratory [address] [place] [address] Dr. Dwight Waters MCH (RBC) [Entitic mass] 28.1 pg Normal 25.9-34.0 [facility] Comment on above: Performed By: #### C BC #### [facility] Laboratory [address] [place] [address] Dr. Dwight Waters MCHC (RBC) [Mass/Vol] 32.0 g/dL Normal 29.9-35.2 [facility] Comment on above: Performed By: #### C BC #### [facility] Laboratory [address] [place] [address] Dr. Dwight Waters MCV (RBC) [Entitic vol] 87.9 fL Normal 80.0-94.0 [facility] Comment on above: Performed By: #### C BC #### [facility] Laboratory [address] [place] [address] Dr. Dwight Waters MONO # 0.5 103/ul Normal 0.3-0.8 [facility] Comment on above: Performed By: #### C BC #### [facility] Laboratory [address] [place] [address] Dr. Dwight Waters Monocytes/100 WBC (Bld) 8.1 % Normal 1.7-12.0 [facility] Comment on above: Performed By: #### C BC #### [facility] Laboratory [address] [place] [address] Dr. Dwight Waters NEUT # 4.0 103/ul Normal 1.4-6.5 [facility] Comment on above: Performed By: #### C BC #### [facility] Laboratory [address] [place] [address] Dr. Dwight Waters Neutrophils/100 WBC (Bld) 60.8 % Normal 43.0-75.0 [facility] Comment on above: Performed By: #### C BC #### [facility] Laboratory [address] [place] [address] Dr. Dwight Waters Platelet mean volume (Bld) [Entitic vol] 9.4 fL Critically low 9.5-13.5 [facility] Comment on above: Performed By: #### C BC #### [facility] Laboratory [address] [place] [address] Dr. Dwight Waters PLT 265 103/ul Normal 150-450 [facility] Comment on above: Performed By: #### C BC #### [facility] Laboratory [address] [place] [address] Dr. Dwight Waters RBC 5.69 106/ul Normal 4.70-6.10 [facility] Comment on above: Performed By: #### C BC #### [facility] Laboratory [address] [place] [address] Dr. Dwight Waters WBC 6.6 103/ul Normal 4.0-11.0 [facility] Comment on above: Performed By: #### C BC #### [facility] Laboratory [address] [place] [address] Dr. Dwight Waters GGTon 09-15-2022 Gamma glutamyl transferase [Catalytic activity/Vol] 23 U/L Normal 15-85 [facility] Comment on above: Performed By: #### U RTPCR #### [facility] Laboratory [address] [place] [address] Dr. Dwight Waters MAGNESIUMon 09-15-2022 Magnesium [Mass/Vol] 1.8 mg/dL Normal 1.8-2.4 [facility] Comment on above: Performed By: #### U RTPCR #### [facility] Laboratory [address] [place] [address] Dr. Dwight Waters RENAL FUNCTION PANELon 09-15 Albumin [Mass/Vol] 4.1 g/dL Normal 3.4-5.0 [facility] Comment on above: Performed By: #### C BC #### [facility] Laboratory [address] [address] [address] Dwight Waters Calcium [Mass/Vol] 9.3 mg/dL Normal 8.5-10.1 [facility] Comment on above: Performed By: #### C BC #### [facility] Laboratory [address] [address] [address] Dwight Waters Chloride [Moles/Vol] 107 mmol/L Normal 98-107 [facility] Comment on above: Performed By: #### C BC #### [facility] Laboratory [address] [place] [address] Dr. Dwight Waters CO2 [Moles/Vol] 25.6 mmol/L Normal 21.0-32.0 [facility] Comment on above: Performed By: #### C BC #### [facility] Laboratory [address] [place] [address] Dr. Dwight Waters Creatinine [Mass/Vol] 1.01 mg/dL Normal 0.70-1.30 [facility] Comment on above: Performed By: #### C BC #### [facility] Laboratory [address] [place] [address] Dr. Dwight Waters EGFR-AF DANISH >60 Normal >=60 [facility] Comment on above: Performed By: #### C BC #### [facility] Laboratory [address] [place] [address] Dr. Dwight Waters EGFR-NON AF DANISH >60 Normal >=60 [facility] Comment on above: Performed By: #### C BC #### [facility] Laboratory [address] [place] [address] Dr. Dwight Waters Glucose [Mass/Vol] 119 mg/dL Critically high 74-106 [facility] Comment on above: Performed By: #### C BC #### [facility] Laboratory [address] [place] [address] Dr. Dwight Waters Phosphate [Mass/Vol] 2.8 mg/dL Normal 2.6-4.7 [facility] Comment on above: Performed By: #### C BC #### [facility] Laboratory [address] [place] [address] Dr. Dwight Waters Potassium [Moles/Vol] 4.0 mmol/L Normal 3.5-5.1 [facility] Comment on above: Performed By: #### C BC #### [facility] Laboratory [address] [place] [address] Dr. Dwight Waters Sodium [Moles/Vol] 141 mmol/L Normal 136-145 [facility] Comment on above: Performed By: #### C BC #### [facility] Laboratory [address] [place] [address] Dr. Dwight Waters Urea nitrogen [Mass/Vol] 15.0 mg/dL Normal 7.0-18.0 [facility] Comment on above: Performed By: #### C BC #### [facility] Laboratory [address] [place] [address] Dr. Dwight Waters SGOTon 09-15-2022 AST [Catalytic activity/Vol] 18 U/L Normal 15-37 [facility] Comment on above: Performed By: #### U RTPCR #### [facility] Laboratory [address] [place] [address] Dr. Dwight Waters SGPTon 09-15-2022 ALT [Catalytic activity/Vol] 32 U/L Normal 16-63 [facility] Comment on above: Performed By: #### C BC #### [facility] Laboratory [address] [place] [address] Dr. Dwight Waters URINE T PROTEIN CREAT RATIOo n 09-15-2022 Protein (U) [Mass/Vol] 14.1 mg/dL Critically high <=12.0 [facility] Comment on above: Performed By: #### U RTPCR #### [facility] Laboratory [address] [place] [address] Dr. Dwight Waters UR PROT CREAT RAT 0.14 Normal [facility] Comment on above: Performed By: #### U RTPCR #### [facility] Laboratory [address] [place] [address] Dr. Dwight Waters URINE CREAT 98.89 mg/dL Normal 20.00-300.00 [facility] Comment on above: Performed By: #### U RTPCR #### [facility] Laboratory [address] [address] [address] Dwight Waters US CAROTID ART BILon 08-28-2 022 US CAROTID ART ROSALINDA EXAMINATION: US CRUZ TID ART ROSALINDA HISTORY: Cardiovascular symptoms ; left carotid bruit, hypertension, headache; left arm fistula COMPARISON: No relevant comparison available. TECHNIQUE: Duplex Doppler ultrasound analysis of carotid and vertebral arteries. . Bilateral carotid arterial duplex examination was performed using B-mode, color flow and spectral analysis. Carotid stenosis is reported according to validated velocity parameters, similar to NASCET criteria. FINDINGS: RIGHT CAROTID ARTERY: Minimal plaque within ICA without significant stenosis. RIGHT VERTEBRAL: Antegrade flow. Subclavian: PSV: 149.6 cm/s EDV: 12.0 cm/s CCA: Prox: PSV: 134.6 cm/s EDV: 11.8 cm/s Mid: PSV: 99.5 cm/s EDV: 9.0 cm/s Distal: PSV: 94.7 cm/s EDV: 12.3 cm/s BULB: PSV: 40.2 cm/s EDV: 7.3 cm/s ICA: Prox: PSV: 53.7 cm/s EDV: 7.5 cm/s Mid: PSV: 68.6 cm/s EDV: 16.2 cm/s Distal: PSV: 56.7 cm/s EDV: 16.0 cm/s ECA: PSV: 130.2 cm/s EDV: 9.0 cm/s VERTEBRAL: PSV: 57.8 cm/s EDV: 14.9 cm/s ICA/CCA ratio: PSV: 0.7 EDV: 1.3 LEFT CAROTID ARTERY: Mild plaque without significant stenosis. LEFT VERTEBRAL: Antegrade flow. Subclavian: PSV: 250.9 cm/s EDV: 92.5 cm/s CCA: Prox: PSV: 127.3 cm/s EDV: 15.0 cm/s Mid: PSV: 107.6 cm/s EDV: 10.7 cm/s Distal: PSV: 96.3 cm/s EDV: 12.3 cm/s BULB: PSV: 80.1 cm/s EDV: 9.0 cm/s ICA: Prox: PSV: 78.5 cm/s EDV: 15.5 cm/s Mid: PSV: 74.5 cm/s EDV: 18.9 cm/s Distal: PSV: 66.8 cm/s EDV: 16.3 cm/s ECA: PSV: 139.9 cm/s EDV: 7.4 cm/s VERTEBRAL: PSV: 34.5 cm/s EDV: 4.9 cm/s ICA/CCA ratio: PSV: 0.8 EDV: 0.7 IMPRESSION: 1. 0-49% flow stenosis within the right and left carotid arteries. 2. Minimal atherosclerotic plaque without significant narrowing. Electronically authenticated by: MÓNICA JIMENEZ Date: 2022-08-28 13:20 Normal [facility] FK506 (TACROLIMUS) WHOLE BLO ODon 08-17-2022 Tacrolimus (FK506), Blood 9.9 ng/mL Normal 2.0-20.0 [facility] Comment on above: Result Comment: Trou gh (immediately following transplant) 15.0 . Trough (steady state, 2 weeks or more after transplant): 3.0 - 8.0 . Performed by LC-MS/MS technology. Performed By: #### F [id number] #### [facility] Laboratory [address] [place] [address] Dr. Dwight Waters BK VIRUS PCR QUANTon 022 BKV DNA QUANT PCR PLASMA Negative Normal Negative [facility] Comment on above: Result Comment: No B K DNA detected. . The linear range of the assay is 22 - 100,000,000 IU/mL. Performed By: #### U RTPCR #### [facility] Laboratory [address] [place] [address] Dr. Dwight Waters Log10 BKV DNA Plasma Normal [facility] Comment on above: Performed By: #### U RTPCR #### [facility] Laboratory [address] [place] [address] Dr. Dwight Waters ALBUMINon 08-14-2022 Albumin [Mass/Vol] 4.2 g/dL Normal 3.4-5.0 [facility] Comment on above: Performed By: #### F [id number] #### [facility] Laboratory [address] [place] [address] Dr. Dwight Waters ALKALINE PHOSPHAon 2 ALP [Catalytic activity/Vol] 92 U/L Normal 46-116 [facility] Comment on above: Performed By: #### C BC #### [facility] Laboratory [address] [place] [address] Dr. Dwight Waters BILIRUBIN CONJUGATED (DIRECT )on 08-14-2022 BILI, CONJUGATED 0.3 mg/dL Critically high 0.0-0.2 [facility] Comment on above: Performed By: #### F [id number] #### [facility] Laboratory [address] [place] [address] Dr. Dwight Waters BILIRUBIN TOTALon 08-14-2022 Bilirubin [Mass/Vol] 1.5 mg/dL Critically high 0.2-1.0 [facility] Comment on above: Performed By: #### F [id number] #### [facility] Laboratory [address] [place] [address] Dr. Dwight Waters BUNon 08-14-2022 Urea nitrogen [Mass/Vol] 11.0 mg/dL Normal 7.0-18.0 [facility] Comment on above: Performed By: #### C BC #### [facility] Laboratory [address] [place] [address] Dr. Dwight Waters CALCIUMon 08-14-2022 Calcium [Mass/Vol] 9.4 mg/dL Normal 8.5-10.1 [facility] Comment on above: Performed By: #### F [id number] #### [facility] Laboratory [address] [place] [address] Dr. Dwight Waters CBC AUTO DIFFon 08-14-2022 BASO # 0.0 103/ul Normal 0.0-0.1 [facility] Comment on above: Performed By: #### C MP #### [facility] Laboratory [address] [place] [address] Dr. Dwight Waters Basophils/100 WBC (Bld) 0.5 % Normal 0.2-2.0 [facility] Comment on above: Performed By: #### C MP #### [facility] Laboratory [address] [place] [address] Dr. Dwight Waters EO # 0.2 103/ul Normal 0.0-0.7 [facility] Comment on above: Performed By: #### C MP #### [facility] Laboratory [address] [place] [address] Dr. Dwight Waters Eosinophils/100 WBC (Bld) 2.6 % Normal 0.9-7.0 [facility] Comment on above: Performed By: #### C MP #### [facility] Laboratory [address] [place] [address] Dr. Dwight Waters Erythrocyte distribution width (RBC) [Ratio] 13.1 % Normal 11.0-15.0 [facility] Comment on above: Performed By: #### C MP #### [facility] [address] [place] [address] Dr. Dwight Waters Hematocrit (Bld) [Volume fraction] 47.0 % Normal 42.0-54.0 [facility] Comment on above: Performed By: #### C MP #### [facility] [address] [place] [address] Dr. Dwight Waters Hemoglobin (Bld) [Mass/Vol] 15.3 g/dL Normal 14.0-18.0 [facility] Comment on above: Performed By: #### C MP #### [facility] [address] [place] [address] Dr. Dwight Waters IG # 0.01 10e3/ul Normal 0.00-0.03 [facility] Comment on above: Performed By: #### C MP #### [facility] [address] [place] [address] Dr. Dwight Waters IG % 0.1 % Normal 0.0-0.5 [facility] Comment on above: Performed By: #### C MP #### [facility] [address] [place] [address] Dr. Dwight Waters LYMPH # 2.3 103/ul Normal 1.2-3.8 [facility] Comment on above: Performed By: #### C MP #### [facility] [address] [place] [address] Dr. Dwight Waters Lymphocytes/100 WBC (Bld) 29.8 % Normal 20.5-60.0 [facility] Comment on above: Performed By: #### C MP #### [facility] [address] [place] [address] Dr. Dwight Waters MANUAL DIFF REQ NO Normal [facility] Comment on above: Performed By: #### C MP #### [facility] [address] [place] [address] Dr. Dwight Waters MCH (RBC) [Entitic mass] 28.2 pg Normal 25.9-34.0 [facility] Comment on above: Performed By: #### C MP #### [facility] [address] [place] [address] Dr. Dwight Waters MCHC (RBC) [Mass/Vol] 32.6 g/dL Normal 29.9-35.2 [facility] Comment on above: Performed By: #### C MP #### [facility] [address] [place] [address] Dr. Dwight Waters MCV (RBC) [Entitic vol] 86.7 fL Normal 80.0-94.0 [facility] Comment on above: Performed By: #### C MP #### [facility] [address] [place] [address] Dr. Dwight Waters MONO # 0.7 103/ul Normal 0.3-0.8 [facility] Comment on above: Performed By: #### C MP #### [facility] [address] [place] [address] Dr. Dwight Waters Monocytes/100 WBC (Bld) 8.5 % Normal 1.7-12.0 [facility] Comment on above: Performed By: #### C MP #### [facility] [address] [place] [address] Dr. Dwight Waters NEUT # 4.5 103/ul Normal 1.4-6.5 [facility] Comment on above: Performed By: #### C MP #### [facility] [address] [place] [address] Dr. Dwight Waters Neutrophils/100 WBC (Bld) 58.5 % Normal 43.0-75.0 [facility] Comment on above: Performed By: #### C MP #### [facility] [address] [place] [address] Dr. Dwight Waters Platelet mean volume (Bld) [Entitic vol] 9.7 fL Normal 9.5-13.5 [facility] Comment on above: Performed By: #### C MP #### [facility] [address] [place] [address] Dr. Dwight Waters PLT 266 103/ul Normal 150-450 [facility] Comment on above: Performed By: #### C MP #### [facility] [address] [place] [address] Dr. Dwight Waters RBC 5.42 106/ul Normal 4.70-6.10 [facility] Comment on above: Performed By: #### C MP #### [facility] [address] [place] [address] Dr. Dwight Waters WBC 7.6 103/ul Normal 4.0-11.0 [facility] Comment on above: Performed By: #### C MP #### [facility] [address] [place] [address] Dr. Dwight Waters CHLORIDEon 08-14-2022 Chloride [Moles/Vol] 104 mmol/L Normal 98-107 [facility] Comment on above: Performed By: #### C BC #### [facility] [address] [place] [address] Dr. Dwight Waters CO2on 08-14-2022 CO2 [Moles/Vol] 27.9 mmol/L Normal 21.0-32.0 [facility] Comment on above: Performed By: #### C BC #### [facility] [address] [place] [address] Dr. Dwight Waters CREATININEon 08-14-2022 Creatinine [Mass/Vol] 1.08 mg/dL Normal 0.70-1.30 [facility] Comment on above: Performed By: #### C BC #### [facility] [address] [place] [address] Dr. Dwight Waters EGFR-AF DANISH >60 Normal >=60 [facility] Comment on above: Performed By: #### C BC #### [facility] [address] [place] [address] Dr. Dwight Waters EGFR-NON AF DANISH >60 Normal >=60 [facility] Comment on above: Performed By: #### C BC #### [facility] [address] [place] [address] Dr. Dwight Waters GGTon 08-14-2022 Gamma glutamyl transferase [Catalytic activity/Vol] 24 U/L Normal 15-85 [facility] Comment on above: Performed By: #### F [id number] #### [facility] [address] [place] [address] Dr. Dwight Waters GLUCOSE BLOODon 08-14-2022 Glucose [Mass/Vol] 111 mg/dL Critically high 74-106 [facility] Comment on above: Performed By: #### C BC #### [facility] [address] [place] [address] Dr. Dwight Waters MAGNESIUMon 08-14-2022 Magnesium [Mass/Vol] 1.4 mg/dL Critically low 1.8-2.4 [facility] Comment on above: Performed By: #### C BC #### [facility] [address] [place] [address] Dr. Dwight Waters NAon 08-14-2022 Sodium [Moles/Vol] 140 mmol/L Normal 136-145 [facility] Comment on above: Performed By: #### F [id number] #### [facility] [address] [place] [address] Dr. Dwight Waters PHOSPHORUSon 08-14-2022 Phosphate [Mass/Vol] 3.1 mg/dL Normal 2.6-4.7 [facility] Comment on above: Performed By: #### C BC #### [facility] [address] [place] [address] Dr. Dwight Waters POTASSIUMon 08-14-2022 Potassium [Moles/Vol] 3.5 mmol/L Normal 3.5-5.1 [facility] Comment on above: Performed By: #### C BC #### [facility] [address] [place] [address] Dr. Dwight Waters SGOTon 08-14-2022 AST [Catalytic activity/Vol] 17 U/L Normal 15-37 [facility] Comment on above: Performed By: #### F [id number] #### [facility] [address] [place] [address] Dr. Dwight Waters SGPTon 08-14-2022 ALT [Catalytic activity/Vol] 22 U/L Normal 16-63 [facility] Comment on above: Performed By: #### F [id number] #### [facility] [address] [place] [address] Dr. Dwight Waters URINE T PROTEIN CREAT RATIOo n 08-14-2022 Protein (U) [Mass/Vol] 10.7 mg/dL Normal <=12.0 [facility] Comment on above: Performed By: #### F [id number] #### [facility] [address] [place] [address] Dr. Dwight Waters UR PROT CREAT RAT 0.10 Normal [facility] Comment on above: Performed By: #### F [id number] #### [facility] [address] [place] [address] Dr. Dwight Waters URINE CREAT 104.28 mg/dL Normal 20.00-300.00 [facility] Comment on above: Performed By: #### F [id number] #### [facility] [address] [place] [address] Dr. Dwight Waters NEPHROSTOMY TUBE REMOVALon 0 07-07-2022 Ryan Yepez MD 07/07/2022 3:45 PM NEPHROSTOMY TUBE REMOVAL Date/Time: 07/07/2022 2:10 PM Performed by: Ryan Yepez MD Authorized by: Ryan Yepez MD Nephrostomy tube removal: Right Pre-procedure details: The nephrostomy tube insertion site(s) was/were inspected and found to be clean/dry/intact without evidence of infection, leakage or discharge. The patient was placed in the left lateral decubitus position on the exam table and the site(s) were cleansed with Chloraprep in preparation for nephrostomy tube removal. Procedure: Fluoroscopic guidance was utilized for this procedure. The anchor sutures were cut and removed from the skin entirely. The nephrostomy tube locking mechanism(s) were released. Steady tension was applied to the tube until it was removed completely and with minimal resistance or pain. The insertion site(s) were observed with no drainage noted after tube removal; significant hemorrhage was not noted. Post-procedure details: Patient condition: tolerated well, no immediate complications. The sites were dressed with overlying gauze and tape. The patient was counseled on proper wound care following removal of nephrostomy tube(s). Additional dressing supplies were issued to the patient. Assisting physician present for entire procedure: yes [facility] Radiology Study observation (narrative) [facility] FK506 (TACROLIMUS) WHOLE BLO ODon 07-06-2022 Tacrolimus (FK506), Blood 9.5 ng/mL Normal 2.0-20.0 [facility] Comment on above: Result Comment: Trou gh (immediately following transplant) 15.0 . Trough (steady state, 2 weeks or more after transplant): 3.0 - 8.0 . Performed by LC-MS/MS technology. Performed By: #### C MP #### [facility] [address] [place] [address] Dr. Dwight Waters ALBUMINon 07-03-2022 Albumin [Mass/Vol] 3.7 g/dL Normal 3.4-5.0 [facility] Comment on above: Performed By: #### U RTPCR #### [facility] [address] [place] [address] Dr. Dwight Waters ALKALINE PHOSPHAon ALP [Catalytic activity/Vol] 76 U/L Normal 46-116 [facility] Comment on above: Performed By: #### U RTPCR #### [facility] [address] [place] [address] Dr. Dwight Waters BILIRUBIN CONJUGATED (DIRECT )on 07-03-2022 BILI, CONJUGATED 0.3 mg/dL Critically high 0.0-0.2 [facility] Comment on above: Performed By: #### C BC #### [facility] [address] [place] [address] Dr. Dwight Waters BILIRUBIN TOTALon 07-03-2022 Bilirubin [Mass/Vol] 1.4 mg/dL Critically high 0.2-1.0 [facility] Comment on above: Performed By: #### C BC #### [facility] [address] [place] [address] Dr. Dwight Waters BUNon 07-03-2022 Urea nitrogen [Mass/Vol] 15.0 mg/dL Normal 7.0-18.0 [facility] Comment on above: Performed By: #### C BC #### [facility] [address] [place] [address] Dr. Dwight Waters CALCIUMon 07-03-2022 Calcium [Mass/Vol] 9.4 mg/dL Normal 8.5-10.1 [facility] Comment on above: Performed By: #### U RTPCR #### [facility] [address] [place] [address] Dr. Dwight Waters CBC AUTO DIFFon 07-03-2022 BASO # 0.0 103/ul Normal 0.0-0.1 [facility] Comment on above: Performed By: #### U RTPCR #### [facility] [address] [place] [address] Dr. Dwight Waters Basophils/100 WBC (Bld) 0.6 % Normal 0.2-2.0 [facility] Comment on above: Performed By: #### U RTPCR #### [facility] [address] [place] [address] Dr. Dwight Waters EO # 0.2 103/ul Normal 0.0-0.7 [facility] Comment on above: Performed By: #### U RTPCR #### [facility] [address] [place] [address] Dr. Dwight Waters Eosinophils/100 WBC (Bld) 3.5 % Normal 0.9-7.0 [facility] Comment on above: Performed By: #### U RTPCR #### [facility] [address] [place] [address] Dr. Dwight Waters Erythrocyte distribution width (RBC) [Ratio] 12.9 % Normal 11.0-15.0 [facility] Comment on above: Performed By: #### U RTPCR #### [facility] [address] [place] [address] Dr. Dwight Waters Hematocrit (Bld) [Volume fraction] 44.2 % Normal 42.0-54.0 [facility] Comment on above: Performed By: #### U RTPCR #### [facility] [address] [place] [address] Dr. Dwight Waters Hemoglobin (Bld) [Mass/Vol] 14.6 g/dL Normal 14.0-18.0 [facility] Comment on above: Performed By: #### U RTPCR #### [facility] [address] [place] [address] Dr. Dwight Waters IG # 0.02 10e3/ul Normal 0.00-0.03 [facility] Comment on above: Performed By: #### U RTPCR #### [facility] [address] [place] [address] Dr. Dwight Waters IG % 0.3 % Normal 0.0-0.5 [facility] Comment on above: Performed By: #### U RTPCR #### [facility] [address] [place] [address] Dr. Dwight Waters LYMPH # 2.0 103/ul Normal 1.2-3.8 [facility] Comment on above: Performed By: #### U RTPCR #### [facility] [address] [place] [address] Dr. Dwight Waters Lymphocytes/100 WBC (Bld) 28.4 % Normal 20.5-60.0 [facility] Comment on above: Performed By: #### U RTPCR #### [facility] [address] [place] [address] Dr. Dwight Waters MANUAL DIFF REQ NO Normal [facility] Comment on above: Performed By: #### U RTPCR #### [facility] [address] [place] [address] Dr. Dwight Waters MCH (RBC) [Entitic mass] 28.6 pg Normal 25.9-34.0 [facility] Comment on above: Performed By: #### U RTPCR #### [facility] [address] [address] [address] Dwight Waters MCHC (RBC) [Mass/Vol] 33.0 g/dL Normal 29.9-35.2 [facility] Comment on above: Performed By: #### U RTPCR #### [facility] [address] [address] [address] Dwight Waters MCV (RBC) [Entitic vol] 86.7 fL Normal 80.0-94.0 [facility] Comment on above: Performed By: #### U RTPCR #### [facility] [address] [place] [address] Dr. Dwight Waters MONO # 0.6 103/ul Normal 0.3-0.8 [facility] Comment on above: Performed By: #### U RTPCR #### [facility] [address] [place] [address] Dr. Dwight Waters Monocytes/100 WBC (Bld) 9.1 % Normal 1.7-12.0 [facility] Comment on above: Performed By: #### U RTPCR #### [facility] [address] [place] [address] Dr. Dwight Waters NEUT # 4.0 103/ul Normal 1.4-6.5 [facility] Comment on above: Performed By: #### U RTPCR #### [facility] [address] [place] [address] Dr. Dwight Waters Neutrophils/100 WBC (Bld) 58.1 % Normal 43.0-75.0 [facility] Comment on above: Performed By: #### U RTPCR #### [facility] [address] [place] [address] Dr. Dwight Waters Platelet mean volume (Bld) [Entitic vol] 9.5 fL Normal 9.5-13.5 [facility] Comment on above: Performed By: #### U RTPCR #### [facility] [address] [place] [address] Dr. Dwight Waters PLT 292 103/ul Normal 150-450 [facility] Comment on above: Performed By: #### U RTPCR #### [facility] [address] [place] [address] Dr. Dwight Waters RBC 5.10 106/ul Normal 4.70-6.10 [facility] Comment on above: Performed By: #### U RTPCR #### [facility] [address] [place] [address] Dr. Dwight Waters WBC 6.9 103/ul Normal 4.0-11.0 [facility] Comment on above: Performed By: #### U RTPCR #### [facility] [address] [place] [address] Dr. Dwight Waters CHLORIDEon 07-03-2022 Chloride [Moles/Vol] 108 mmol/L Critically high 98-107 [facility] Comment on above: Performed By: #### C BC #### [facility] [address] [place] [address] Dr. Dwight Waters CO2on 07-03-2022 CO2 [Moles/Vol] 25.2 mmol/L Normal 21.0-32.0 [facility] Comment on above: Performed By: #### C BC #### [facility] [address] [place] [address] Dr. Dwight Waters CREATININEon 07-03-2022 Creatinine [Mass/Vol] 1.03 mg/dL Normal 0.70-1.30 [facility] Comment on above: Performed By: #### U RTPCR #### [facility] [address] [place] [address] Dr. Dwight Waters EGFR-AF DANISH >60 Normal >=60 [facility] Comment on above: Performed By: #### U RTPCR #### [facility] [address] [place] [address] Dr. Dwight Waters EGFR-NON AF DANISH >60 Normal >=60 [facility] Comment on above: Performed By: #### U RTPCR #### [facility] [address] [place] [address] Dr. Dwight Waters GGTon 07-03-2022 Gamma glutamyl transferase [Catalytic activity/Vol] 31 U/L Normal 15-85 [facility] Comment on above: Performed By: #### U RTPCR #### [facility] [address] [place] [address] Dr. Dwight Waters GLUCOSE BLOODon 07-03-2022 Glucose [Mass/Vol] 119 mg/dL Critically high 74-106 [facility] Comment on above: Performed By: #### U RTPCR #### [facility] [address] [place] [address] Dr. Dwight Waters MAGNESIUMon 07-03-2022 Magnesium [Mass/Vol] 1.4 mg/dL Critically low 1.8-2.4 [facility] Comment on above: Performed By: #### C BC #### [facility] [address] [place] [address] Dr. Dwight Waters NAon 07-03-2022 Sodium [Moles/Vol] 142 mmol/L Normal 136-145 [facility] Comment on above: Performed By: #### C MP #### [facility] [address] [place] [address] Dr. Dwight Waters PHOSPHORUSon 07-03-2022 Phosphate [Mass/Vol] 3.4 mg/dL Normal 2.6-4.7 [facility] Comment on above: Performed By: #### C BC #### [facility] [address] [place] [address] Dr. Dwight Waters POTASSIUMon 07-03-2022 Potassium [Moles/Vol] 4.1 mmol/L Normal 3.5-5.1 [facility] Comment on above: Performed By: #### C BC #### [facility] [address] [place] [address] Dr. Dwight Waters SGOTon 07-03-2022 AST [Catalytic activity/Vol] 14 U/L Critically low 15-37 [facility] Comment on above: Performed By: #### C BC #### [facility] [address] [place] [address] Dr. Dwight Waters SGPTon 07-03-2022 ALT [Catalytic activity/Vol] 25 U/L Normal 16-63 [facility] Comment on above: Performed By: #### C #### [facility] [address] [address] [address] Dwight Waters US KIDNEYSon 07-03-2022 US KIDNEYS Ultrasound kidneys, bilateral HISTORY: Transplant of kidney , pain in the right lower quadrant COMPARISON: None. TECHNIQUE: Transabdominal ultrasound imaging of both kidneys was performed. FINDINGS: The [place] kidneys are diffusely echogenic and atrophic with cortical thinning. The right kidney measures 8.3 x 3.5 x 4.07 m and the left measures 9.9 x 3.8 x 3.6 cm. No hydronephrosis of the [place] kidneys. There is a renal transplant in the right iliac fossa, measures 14.2 x 5.3 x 5.5 cm. Normal echogenicity of the renal transplant. There is no focal abnormality, renal stone, or hydronephrosis involving the renal transplant. There is arterial and venous flow documented at the vascular hilum of the renal transplant. The bladder is moderately distended with prevoid volume of 266 cc. No focal bladder abnormality. IMPRESSION: 1. Normal ultrasound appearance of the renal renal transplant in the right iliac fossa. No hydronephrosis, focal renal abnormality, or renal stone involving the renal transplant. 2. Atrophic [place] kidneys. 3. Normal bladder. Electronically authenticated by: ARCELIA PIZARRO Date: 2022-07-03 17:22 Normal [facility] CT Abdomen and Pelvis WO con [place] 06-27-2022 IMPRESSION: 1. Both [place] kidneys are atrophic with improvement in right-sided hydronephrosis since May 15, 2022. 2. 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 No hydronephrosis. No discrete perinephric collection. 3. Partially imaged postsurgical changes related to prior liver transplant. 4. The bladder is decompressed, limiting evaluation. OLOGY EXAM: CT ABDOMEN/PEL VIS WITHOUT CONTRAST, 06/27/2022 11:59 AM COMPARISON: Compared to prior study dated May 15, 2022 CLINICAL INDICATIONS: CT Stone protocol; CT stone protocol; [id number] (acute kidney injury) TECHNIQUE: CT scanning of the abdomen and pelvis was performed without the administration of intravenous contrast. PROTOCOL: CT stone study: CT images of the abdomen and pelvis were performed from the top of the kidneys to the ischial tuberosities without the administration of oral and intravenous contrast. CONTRAST: FINDINGS: Lung Bases: The visualized lung bases and lower mediastinal structures are unremarkable. ABDOMEN Evaluation of the solid organs is limited without intravenous contrast. Liver: Postsurgical changes related to liver transplant.. No focal lesions. Biliary/Gallbladder: The gallbladder is normal without evidence of radiopaque stones. The biliary tree is nondilated. Spleen: Spleen is normal in size and CT density. Pancreas: Pancreas is normal. There is no evidence of pancreatic mass or peripancreatic fluid. Adrenals: Adrenal glands are unremarkable. Kidneys: Both [place] kidneys are atrophic. Interval improvement in right [place] kidney hydronephrosis since May 15, 2022. Status post right iliac fossa transplant kidney. Percutaneous nephrostomy tube in place. No hydronephrosis.. Retroperitoneal/Vascula ture: No retroperitoneal adenopathy is identified. Atherosclerotic disease of the abdominal aorta and its branches. Gastrointestinal/Mesent katie: The bowel loops are non-dilated without wall thickening or mass. The appendix is normal. Scattered sigmoid colon diverticulosis without evidence of acute diverticulitis. PELVIS Bladder: The bladder is decompressed, limiting evaluation. Genital: The prostate and seminal vesicles are unremarkable. Other: Small bilateral fat-containing inguinal hernias. Bony Structures: Multilevel degenerative changes of the spine. No aggressive osseous lesions. RADIOLOGY Gera Lu MD - 06/27/2022 EXAM: CT ABDOMEN/PELVIS WITHOUT CONTRAST, 06/27/2022 11:59 AM COMPARISON: Compared to prior study dated May 15, 2022 CLINICAL INDICATIONS: CT Stone protocol; CT stone protocol; [id number] (acute kidney injury) TECHNIQUE: CT scanning of the abdomen and pelvis was performed without the administration of intravenous contrast. PROTOCOL: CT stone study: CT images of the abdomen and pelvis were performed from the top of the kidneys to the ischial tuberosities without the administration of oral and intravenous contrast. CONTRAST: FINDINGS: Lung Bases: The visualized lung bases and lower mediastinal structures are unremarkable. ABDOMEN Evaluation of the solid organs is limited without intravenous contrast. Liver: Postsurgical changes related to liver transplant.. No focal lesions. Biliary/Gallbladder: The gallbladder is normal without evidence of radiopaque stones. The biliary tree is nondilated. Spleen: Spleen is normal in size and CT density. Pancreas: Pancreas is normal. There is no evidence of pancreatic mass or peripancreatic fluid. Adrenals: Adrenal glands are unremarkable. Kidneys: Both [place] kidneys are atrophic. Interval improvement in right [place] kidney hydronephrosis since May 15, 2022. Status post right iliac fossa transplant kidney. Percutaneous nephrostomy tube in place. No hydronephrosis.. Retroperitoneal/Vascula ture: No retroperitoneal adenopathy is identified. Atherosclerotic disease of the abdominal aorta and its branches. Gastrointestinal/Mesent katie: The bowel loops are non-dilated without wall thickening or mass. The appendix is normal. Scattered sigmoid colon diverticulosis without evidence of acute diverticulitis. PELVIS Bladder: The bladder is decompressed, limiting evaluation. Genital: The prostate and seminal vesicles are unremarkable. Other: Small bilateral fat-containing inguinal hernias. Bony Structures: Multilevel degenerative changes of the spine. No aggressive osseous lesions. IMPRESSION IMPRESSION: 1. Both [place] kidneys are atrophic with improvement in right-sided hydronephrosis since May 15, 2022. 2. 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 No hydronephrosis. No discrete perinephric collection. 3. Partially imaged postsurgical changes related to prior liver transplant. 4. The bladder is decompressed, limiting evaluation. [facility] Radiology Study observation (narrative) [facility] CT Abdomen and Pelvis WO con trastOrdered By: Gera Lu on 06-27-2022 [facility] Work Phone: CBC AUTO DIFFon 06-18-2022 BASO # 0.0 103/ul Normal 0.0-0.1 [facility] Comment on above: Performed By: #### U RTPCR #### [facility] [address] [place] [address] Dr. Dwight Waters Basophils/100 WBC (Bld) 0.5 % Normal 0.2-2.0 [facility] Comment on above: Performed By: #### U RTPCR #### [facility] [address] [place] [address] Dr. Dwight Waters EO # 0.2 103/ul Normal 0.0-0.7 [facility] Comment on above: Performed By: #### U RTPCR #### [facility] [address] [place] [address] Dr. Dwight Waters Eosinophils/100 WBC (Bld) 2.3 % Normal 0.9-7.0 [facility] Comment on above: Performed By: #### U RTPCR #### [facility] [address] [place] [address] Dr. Dwight Waters Erythrocyte distribution width (RBC) [Ratio] 12.9 % Normal 11.0-15.0 [facility] Comment on above: Performed By: #### U RTPCR #### [facility] [address] [place] [address] Dr. Dwight Waters Hematocrit (Bld) [Volume fraction] 41.2 % Critically low 42.0-54.0 [facility] Comment on above: Performed By: #### U RTPCR #### [facility] [address] [place] [address] Dr. Dwight Waters Hemoglobin (Bld) [Mass/Vol] 13.3 g/dL Critically low 14.0-18.0 [facility] Comment on above: Performed By: #### U RTPCR #### [facility] [address] [place] [address] Dr. Dwight Waters IG # 0.04 10e3/ul Critically high 0.00-0.03 [facility] Comment on above: Performed By: #### U RTPCR #### [facility] [address] [place] [address] Dr. Dwight Waters IG % 0.5 % Normal 0.0-0.5 [facility] Comment on above: Performed By: #### U RTPCR #### [facility] [address] [place] [address] Dr. Dwight Waters LYMPH # 2.0 103/ul Normal 1.2-3.8 [facility] Comment on above: Performed By: #### U RTPCR #### [facility] [address] [place] [address] Dr. Dwight Waters Lymphocytes/100 WBC (Bld) 22.9 % Normal 20.5-60.0 [facility] Comment on above: Performed By: #### U RTPCR #### [facility] [address] [place] [address] Dr. Dwight Waters MANUAL DIFF REQ NO Normal [facility] Comment on above: Performed By: #### U RTPCR #### [facility] [address] [place] [address] Dr. Dwight Waters MCH (RBC) [Entitic mass] 28.7 pg Normal 25.9-34.0 [facility] Comment on above: Performed By: #### U RTPCR #### [facility] [address] [place] [address] Dr. Dwight Waters MCHC (RBC) [Mass/Vol] 32.3 g/dL Normal 29.9-35.2 [facility] Comment on above: Performed By: #### U RTPCR #### [facility] [address] [place] [address] Dr. Dwight Waters MCV (RBC) [Entitic vol] 88.8 fL Normal 80.0-94.0 [facility] Comment on above: Performed By: #### U RTPCR #### [facility] [address] [place] [address] Dr. Dwight Waters MONO # 0.8 103/ul Normal 0.3-0.8 [facility] Comment on above: Performed By: #### U RTPCR #### [facility] [address] [place] [address] Dr. Dwight Waters Monocytes/100 WBC (Bld) 9.7 % Normal 1.7-12.0 [facility] Comment on above: Performed By: #### U RTPCR #### [facility] [address] [place] [address] Dr. Dwight Waters NEUT # 5.6 103/ul Normal 1.4-6.5 [facility] Comment on above: Performed By: #### U RTPCR #### [facility] [address] [place] [address] Dr. Dwight Waters Neutrophils/100 WBC (Bld) 64.1 % Normal 43.0-75.0 [facility] Comment on above: Performed By: #### U RTPCR #### [facility] [address] [place] [address] Dr. Dwight Waters Platelet mean volume (Bld) [Entitic vol] 10.0 fL Normal 9.5-13.5 [facility] Comment on above: Performed By: #### U RTPCR #### [facility] [address] [place] [address] Dr. Dwight Waters PLT 270 103/ul Normal 150-450 [facility] Comment on above: Performed By: #### U RTPCR #### [facility] [address] [place] [address] Dr. Dwight Waters RBC 4.64 106/ul Critically low 4.70-6.10 [facility] Comment on above: Performed By: #### U RTPCR #### [facility] [address] [place] [address] Dr. Dwight Waters WBC 8.7 103/ul Normal 4.0-11.0 [facility] Comment on above: Performed By: #### U RTPCR #### [facility] [address] [place] [address] Dr. Dwight Waters CULTURE URINEon 06-18-2022 CULTURE URINE Culture Observations : NO GROWTH. Normal [facility] Comment on above: Performed By: #### U RTPCR #### [facility] [address] [place] [address] Dr. Dwight Waters Covid-19 PCR [facility]31 SARS-CoV-2 (COVID-19) RNA ESTELITA+probe Ql (Unsp spec) Not detected Normal NOT DETECTED [facility] Comment on above: Result Comment: When diagnostic testing is negative, the possibility of a false negative should be considered in the context of a patient's recent exposures and the presence of clinical signs and symptoms consistent with SARS-CoV-2. This test is not yet approved or cleared by the [place] FDA. When there are no FDA-approved or cleared tests available, and other criteria are met, FDA can make tests available under an emergency access mechanism called an Emergency Use Authorization (EUA). The EUA for this test is supported by the Application Systems Architect of Health and Human Service's declaration that circumstances exist to justify the emergency use of in vitro diagnostics for the detection and/or diagnosis of the virus that causes COVID-19. This EUA will remain in effect for the duration of the COVID-19 declaration justifying emergency of IVDs, unless it is terminated or revoked by the FDA (after which the test may no longer be used). Performed By: #### C BC #### [facility] [address] [place] [address] Dr. Dwight Waters ER URINE PROFILEon 2 Bilirubin Ql (U) Negative Normal NEGATIVE [facility] Comment on above: Performed By: #### U RTPCR #### [facility] [address] [place] [address] Dr. Dwight Waters Clarity (U) CLEAR Normal CLEAR [facility] Comment on above: Performed By: #### U RTPCR #### [facility] [address] [place] [address] Dr. Dwight Waters Color (U) YELLOW Normal YELLOW [facility] Comment on above: Performed By: #### U RTPCR #### [facility] [address] [place] [address] Dr. Dwight SHARMA A micrscopic examination will be performed if indicated. Normal [facility] Comment on above: Performed By: #### U RTPCR #### [facility] [address] [place] [address] Dr. Dwight Waters Glucose Ql (U) Negative Normal NEGATIVE [facility] Comment on above: Performed By: #### U RTPCR #### [facility] [address] [place] [address] Dr. Dwight Waters Hemoglobin Ql (U) LARGE Abnormal NEGATIVE [facility] Comment on above: Performed By: #### U RTPCR #### [facility] [address] [place] [address] Dr. Dwight Waters Ketones Ql (U) Negative Normal NEGATIVE [facility] Comment on above: Performed By: #### U RTPCR #### [facility] [address] [place] [address] Dr. Dwight Waters LEUKOCYTES TRACE Abnormal NEGATIVE [facility] Comment on above: Performed By: #### U RTPCR #### [facility] [address] [place] [address] Dr. Dwight Waters Nitrite Ql (U) Negative Normal NEGATIVE [facility] Comment on above: Performed By: #### U RTPCR #### [facility] [address] [place] [address] Dr. Dwight Waters pH (U) 6.0 [pH] Normal 5-9 [facility] Comment on above: Performed By: #### U RTPCR #### [facility] [address] [place] [address] Dr. Dwight Waters Protein (U) [Mass/Vol] 30 mg/dL Abnormal NEGATIVE/ TRACE [facility] Comment on above: Performed By: #### U RTPCR #### [facility] [address] [place] [address] Dr. Dwight Waters SPEC GRAVITY >=1.030 Abnormal 1.005-<=1.025 [facility] Comment on above: Performed By: #### U RTPCR #### [facility] [address] [place] [address] Dr. Dwight Waters UR MICRO IND INDICATED Normal [facility] Comment on above: Performed By: #### U RTPCR #### [facility] [address] [place] [address] Dr. Dwight Waters Urobilinogen Qn (U) 0.2 {Alyssa'U}/dL Normal 0.2 - 1. 0 [facility] Comment on above: Performed By: #### U RTPCR #### [facility] [address] [place] [address] Dr. Dwight Waters PROF 14(COMP METB)on 022 Albumin [Mass/Vol] 3.7 g/dL Normal 3.4-5.0 [facility] Comment on above: Performed By: #### C MP #### [facility] [address] [place] [address] Dr. Dwight Waters Albumin/Globulin [Mass ratio] 0.9 {ratio} Normal [facility] Comment on above: Performed By: #### C MP #### [facility] [address] [place] [address] Dr. Dwight Waters ALP [Catalytic activity/Vol] 80 U/L Normal 46-116 [facility] Comment on above: Performed By: #### C MP #### [facility] [address] [address] [address] Dwight Waters ALT [Catalytic activity/Vol] 24 U/L Normal 16-63 [facility] Comment on above: Performed By: #### C MP #### [facility] [address] [place] [address] Dr. Dwight Waters Anion gap [Moles/Vol] 12.9 mmol/L Normal [facility] Comment on above: Performed By: #### C MP #### [facility] [address] [place] [address] Dr. Dwight Waters AST [Catalytic activity/Vol] 17 U/L Normal 15-37 [facility] Comment on above: Performed By: #### C MP #### [facility] [address] [place] [address] Dr. Dwight Waters Bilirubin [Mass/Vol] 0.8 mg/dL Normal 0.2-1.0 [facility] Comment on above: Performed By: #### C MP #### [facility] [address] [place] [address] Dr. Dwight Waters Calcium [Mass/Vol] 9.4 mg/dL Normal 8.5-10.1 [facility] Comment on above: Performed By: #### C MP #### [facility] [address] [place] [address] Dr. Dwight Waters Chloride [Moles/Vol] 106 mmol/L Normal 98-107 [facility] Comment on above: Performed By: #### C MP #### [facility] [address] [place] [address] Dr. Dwight Waters CO2 [Moles/Vol] 25.3 mmol/L Normal 21.0-32.0 [facility] Comment on above: Performed By: #### C MP #### [facility] [address] [address] [address] Dwight Waters Creatinine [Mass/Vol] 1.29 mg/dL Normal 0.70-1.30 [facility] Comment on above: Performed By: #### C MP #### [facility] [address] [address] [address] Dwight Waters EGFR-AF DANISH >60 Normal >=60 [facility] Comment on above: Performed By: #### C MP #### [facility] [address] [address] [address] Dwight Waters EGFR-NON AF DANISH 59 mL/min/1.73m2 Critically low >=60 [facility] Comment on above: Performed By: #### C MP #### [facility] [address] [address] [address] Dwight Waters Globulin (S) [Mass/Vol] 4.2 g/dL Normal [facility] Comment on above: Performed By: #### C MP #### [facility] [address] [address] [address] Dwight Waters Glucose [Mass/Vol] 106 mg/dL Normal 74-106 [facility] Comment on above: Performed By: #### C MP #### [facility] [address] [address] [address] Dwight Waters Potassium [Moles/Vol] 4.2 mmol/L Normal 3.5-5.1 [facility] Comment on above: Performed By: #### C MP #### [facility] [address] [address] [address] Dwight Waters Protein [Mass/Vol] 7.9 g/dL Normal 6.4-8.2 [facility] Comment on above: Performed By: #### C MP #### [facility] [address] [address] [address] Dwight Watesr Sodium [Moles/Vol] 140 mmol/L Normal 136-145 [facility] Comment on above: Performed By: #### C MP #### [facility] [address] [place] [address] Dr. Dwight Waters Urea nitrogen [Mass/Vol] 22.0 mg/dL Critically high 7.0-18.0 [facility] Comment on above: Performed By: #### C MP #### [facility] [address] [place] [address] Dr. Dwight Waters Urea nitrogen/Creatinine [Mass ratio] 17.1 mg/mg Normal [facility] Comment on above: Performed By: #### C MP #### [facility] [address] [place] [address] Dr. Dwight Waters URINE MICROSCOPIC ONLYon BACTERIA TRACE Abnormal NONE SEEN [facility] Comment on above: Performed By: #### U RTPCR #### [facility] [address] [place] [address] Dr. Dwight Waters Bacteria identified Cx Nom (U) INDICATED Normal [facility] Comment on above: Performed By: #### U RTPCR #### [facility] [address] [place] [address] Dr. Dwight Waters CAST NONE SEEN Normal NONE SEEN [facility] Comment on above: Performed By: #### U RTPCR #### [facility] [address] [place] [address] Dr. Dwight Waters Crystals LM Nom (Urine sed) NONE SEEN Normal NONE SEEN [facility] Comment on above: Performed By: #### U RTPCR #### [facility] [address] [place] [address] Dr. Dwight Waters Epithelial cells LM Ql (Urine sed) NONE SEEN Normal NONE SEEN /RARE [facility] Comment on above: Performed By: #### U RTPCR #### [facility] [address] [place] [address] Dr. Dwight Waters MUCOUS NONE SEEN Normal NONE SEEN [facility] Comment on above: Performed By: #### U RTPCR #### [facility] [address] [place] [address] Dr. Dwight Waters RBC 5-10 Abnormal 0-2 [facility] Comment on above: Performed By: #### U RTPCR #### [facility] [address] [place], [place] [address] Dr. Dwight Waters WBC 10-20 Abnormal NONE SEEN [facility] Comment on above: Performed By: #### U RTPCR #### [facility] [address] [place], [place] [address] Dr. Dwight Waters ALLOSCREEN RECIPIENT (POST T X PRA)on 06-13-2022 AB SPECIFICITY CLASS COMMENT Antibody Specificity testing performed by [employer]. cPRA calculation based on identification of HLA antibody specificities at MFI >2000 and/or presence of CREG antibodies. [facility] Comment on above: Some of the reagents used for testing in the Clinical Histocompatibility Laboratory have yet to be approved by the FDA. Our certification by CLIA to perform high complexity tests allows us to use these reagents in the context of a stringent QC program, and obviates the need for FDA approval.Testing performed by the [facility] Clinical Histocompatibility Laboratory. [facility] number: [id number]. CLIA number: [id number], Director: Carlito Merchant, PhD, D([facility]). ANTIBODY SPECIFICITY INTERPRETATION Detected [facility] CLASS I SPECIFICITIES Not detected [facility] CLASS II SPECIFICITIES Not detected [facility] HLA Ab (S) 0 % 0 [facility] EXTRA MICROon 06-13-2022 [facility] URINE CULTUREOrdered By: Jah Upton on 06-13-2022 Bacteria identified Cx Nom (Unsp spec) Growth [facility] Bacteria identified Cx Nom (Unsp spec) 10,000-50,000 CFU/mL Mixed skin shimon [facility] Comment on above: Multiple bacterial m orphotypes present. Suggest appropriate recollection if clinically indicated. [facility] CBC,PLATELETSon 06-12-2022 Erythrocyte distribution width (RBC) [Ratio] 13.0 % 10.9 - 14.3 % [facility] Hematocrit (Bld) [Volume fraction] 43.2 % 39.6 - 48.8 % [facility] Hemoglobin (Bld) [Mass/Vol] 13.9 g/dL 13.4 - 16.8 g/dL [facility] Interpretation and review of laboratory results Normal [facility] MCH (RBC) [Entitic mass] 28.7 pg 26.1 - 33.3 pg [facility] MCHC (RBC) [Mass/Vol] 32.2 g/dL 31.9 - 36.5 g/dL [facility] MCV (RBC) [Entitic vol] 89.1 fL 79.0 - 94.5 fL [facility] Platelet mean volume (Bld) [Entitic vol] 10.5 fL 8.7 - 12.3 fL [facility] Platelets (Bld) [#/Vol] 269 10*3/uL 146 - 337 K/uL [facility] RBC (Bld) [#/Vol] 4.85 10*6/uL [facility] WBC (Bld) [#/Vol] 7.68 10*3/uL 3.73 - 10. 10 K/uL [facility] CHEM 7 (LYTES,BUN,CREA,GLUC) on 06-12-2022 Anion gap [Moles/Vol] 14 mmol/L 7 - 17 mmol/L [facility] Chloride [Moles/Vol] 106 mmol/L 98 - 10 8 mmol/L [facility] CO2 [Moles/Vol] 25 mmol/L 21 - 31 mmol/L [facility] Creatinine [Mass/Vol] 1.26 mg/dL 0.70 - 1.30 mg/dL [facility] GFR/1.73 sq M.predicted CKD-EPI (S/P/Bld) [Vol rate/Area] 69 >=60 mL/min/1.73m2 [facility] Comment on above: Reported eGFR is bas ed on the CKD-EPI 2020 equation using creatinine, age, and sex. Glucose [Mass/Vol] 83 mg/dL 70 - 99 mg/dL [facility] Osmolality Calc [Osmolality] [address] [facility] Potassium [Moles/Vol] 3.8 mmol/L 3.5 - 5.0 mmol/L [facility] Sodium [Moles/Vol] 141 mmol/L 135 - 145 mmol/L [facility] Urea nitrogen [Mass/Vol] 18 mg/dL 7 - 25 mg/dL [facility] Urea nitrogen/Creatinine [Mass ratio] 14 mg/mg [facility] GGTon 06-12-2022 Gamma glutamyl transferase [Catalytic activity/Vol] 20 U/L 8 - 64 U/L [facility] HEMOGLOBIN [id number] By: [employer] on 06-12-2022 Average glucose Estimated from glycated hemoglobin (Bld) [Mass/Vol] 126 mg/dL [facility] HbA1c (Bld) [Mass fraction] 6.0 % High 4.7 - 5.6 % [facility] Center Interpretation and review of laboratory results Abnormal [facility] HEPATIC FUNCTION PANELon Albumin [Mass/Vol] 4.3 g/dL 3.5 - 5.0 g/dL [facility] ALP [Catalytic activity/Vol] 78 U/L 32 - 126 U/L [facility] ALT [Catalytic activity/Vol] 12 U/L 10 - 52 U/L [facility] AST [Catalytic activity/Vol] 16 U/L 10 - 39 U/L [facility] Bilirubin [Mass/Vol] 1.0 mg/dL <1.5 [facility] Bilirubin.direct [Mass/Vol] 0.2 mg/dL <0.3 [facility] Protein [Mass/Vol] 7.5 g/dL 6.4 - 8.3 g/dL [facility] No Panel Informationon 06-12 Interpretation and review of laboratory results Normal [facility] PTH INTACTOrdered By: Marli Lizarraga on 06-12-2022 Interpretation and review of laboratory results Abnormal [facility] Parathyrin.intact [Mass/Vol] 79.7 pg/mL High 14.0 - 72.0 pg/mL [facility] URINALYSIS REFLEX TO CULTURE PERFORMABLEon 06-12-2022 Appearance (U) Clear Clear [facility] Bacteria LM Ql (Urine sed) ABSENT ABSENT [facility] Color (U) Yellow Yellow [facility] Epithelial cells.squamous LM Ql (Urine sed) 1/hpf = 1+ 1/hpf = 1+, 2-5/hpf = 2+, 0/hpf = 0+, ABSENT [facility] Glucose Test strip (U) [Mass/Vol] Negative Negative [facility] Interpretation and review of laboratory results Abnormal [facility] Ketones (U) [Mass/Vol] Trace Abnormal Negative [facility] Leukocyte esterase Test strip Ql (U) Small Abnormal Negative [facility] Nitrite Ql (U) Negative Negative [facility] pH (U) 5.5 [pH] 5.0 - 7.0 [facility] Protein (U) [Mass/Vol] 30 mg/dL Abnormal Negative [facility] RBC (U) [#/Vol] Trace Abnormal Negative [facility] RBC LM.HPF (Urine sed) [#/Area] 0-2 0 - 2 /HPF [facility] Specific gravity (U) [Rel density] 1.026 [facility] Urobilinogen (U) [Mass/Vol] 0.2 E.U./dL 0.2 E.U/dL, 1.0 E.U/dL [facility] WBC LM.HPF (Urine sed) [#/Area] 10-20 Abnormal 0 - 5 /HPF [facility] URINE PROTEIN/CREA RATIO, RA NDOMon 06-12-2022 Creatinine (24H U) [Mass/Vol] 231.68 mg/dL [facility] Protein Unsp time (U) [Mass/Vol] 49 mg/dL [facility] Protein/Creatinine (U) [Mass ratio] 0.211 mg/g [facility] FK506 (TACROLIMUS) WHOLE BLO ODon 06-09-2022 Tacrolimus (FK506), Blood 9.8 ng/mL Normal 2.0-20.0 [facility] Comment on above: Result Comment: Trou gh (immediately following transplant) 15.0 . Trough (steady state, 2 weeks or more after transplant): 3.0 - 8.0 . Performed by LC-MS/MS technology. Performed By: #### U RTPCR #### [facility] [address] [place] [address] Dr. Dwight Waters ALBUMINon 06-06-2022 Albumin [Mass/Vol] 3.8 g/dL Normal 3.4-5.0 [facility] Comment on above: Performed By: #### C MP #### [facility] [address] [place] [address] Dr. Dwight Waters ALKALINE PHOSPHAon ALP [Catalytic activity/Vol] 82 U/L Normal 46-116 [facility] Comment on above: Performed By: #### C MP #### [facility] [address] [place] [address] Dr. Dwight Waters BILIRUBIN CONJUGATED (DIRECT )on 06-06-2022 BILI, CONJUGATED 0.2 mg/dL Normal 0.0-0.2 [facility] Comment on above: Performed By: #### C BC #### [facility] [address] [place] [address] Dr. Dwight Waters BILIRUBIN TOTALon 06-06-2022 Bilirubin [Mass/Vol] 1.0 mg/dL Normal 0.2-1.0 [facility] Comment on above: Performed By: #### C BC #### [facility] [address] [place] [address] Dr. Dwight Waters BUNon 06-06-2022 Urea nitrogen [Mass/Vol] 18.0 mg/dL Normal 7.0-18.0 [facility] Comment on above: Performed By: #### C BC #### [facility] [address] [place] [address] Dr. Dwight Waters CALCIUMon 06-06-2022 Calcium [Mass/Vol] 9.4 mg/dL Normal 8.5-10.1 [facility] Comment on above: Performed By: #### C MP #### [facility] [address] [address] [address] Dwight Waters CBC AUTO DIFFon 06-06-2022 BASO # 0.1 103/ul Normal 0.0-0.1 [facility] Comment on above: Performed By: #### U RTPCR #### [facility] [address] [place] [address] Dr. Dwight Waters Basophils/100 WBC (Bld) 0.8 % Normal 0.2-2.0 [facility] Comment on above: Performed By: #### U RTPCR #### [facility] [address] [place] [address] Dr. Dwight Waters EO # 0.3 103/ul Normal 0.0-0.7 [facility] Comment on above: Performed By: #### U RTPCR #### [facility] [address] [place] [address] Dr. Dwight Waters Eosinophils/100 WBC (Bld) 3.3 % Normal 0.9-7.0 [facility] Comment on above: Performed By: #### U RTPCR #### [facility] [address] [place] [address] Dr. Dwight Waters Erythrocyte distribution width (RBC) [Ratio] 12.4 % Normal 11.0-15.0 [facility] Comment on above: Performed By: #### U RTPCR #### [facility] [address] [place] [address] Dr. Dwight Waters Hematocrit (Bld) [Volume fraction] 45.1 % Normal 42.0-54.0 [facility] Comment on above: Performed By: #### U RTPCR #### [facility] [address] [place] [address] Dr. Dwight Waters Hemoglobin (Bld) [Mass/Vol] 14.4 g/dL Normal 14.0-18.0 [facility] Comment on above: Performed By: #### U RTPCR #### [facility] [address] [place] [address] Dr. Dwight Waters IG # 0.01 10e3/ul Normal 0.00-0.03 [facility] Comment on above: Performed By: #### U RTPCR #### [facility] [address] [place] [address] Dr. Dwight Waters IG % 0.1 % Normal 0.0-0.5 [facility] Comment on above: Performed By: #### U RTPCR #### [facility] [address] [place] [address] Dr. Dwight Waters LYMPH # 2.2 103/ul Normal 1.2-3.8 [facility] Comment on above: Performed By: #### U RTPCR #### [facility] [address] [place] [address] Dr. Dwight Waters Lymphocytes/100 WBC (Bld) 30.0 % Normal 20.5-60.0 [facility] Comment on above: Performed By: #### U RTPCR #### [facility] [address] [place] [address] Dr. Dwight Waters MANUAL DIFF REQ NO Normal [facility] Comment on above: Performed By: #### U RTPCR #### [facility] [address] [place] [address] Dr. Dwight Waters MCH (RBC) [Entitic mass] 28.2 pg Normal 25.9-34.0 [facility] Comment on above: Performed By: #### U RTPCR #### [facility] [address] [place] [address] Dr. Dwight Waters MCHC (RBC) [Mass/Vol] 31.9 g/dL Normal 29.9-35.2 [facility] Comment on above: Performed By: #### U RTPCR #### [facility] [address] [place] [address] Dr. Dwight Waters MCV (RBC) [Entitic vol] 88.3 fL Normal 80.0-94.0 [facility] Comment on above: Performed By: #### U RTPCR #### [facility] [address] [place] [address] Dr. Dwight Waters MONO # 0.6 103/ul Normal 0.3-0.8 [facility] Comment on above: Performed By: #### U RTPCR #### [facility] [address] [place] [address] Dr. Dwight Waters Monocytes/100 WBC (Bld) 8.2 % Normal 1.7-12.0 [facility] Comment on above: Performed By: #### U RTPCR #### [facility] [address] [place] [address] Dr. Dwight Waters NEUT # 4.3 103/ul Normal 1.4-6.5 [facility] Comment on above: Performed By: #### U RTPCR #### [facility] [address] [place] [address] Dr. Dwight Waters Neutrophils/100 WBC (Bld) 57.6 % Normal 43.0-75.0 [facility] Comment on above: Performed By: #### U RTPCR #### [facility] [address] [place] [address] Dr. Dwight Waters Platelet mean volume (Bld) [Entitic vol] 9.7 fL Normal 9.5-13.5 [facility] Comment on above: Performed By: #### U RTPCR #### [facility] [address] [place] [address] Dr. Dwight Waters PLT 297 103/ul Normal 150-450 [facility] Comment on above: Performed By: #### U RTPCR #### [facility] [address] [place] [address] Dr. Dwight Waters RBC 5.11 106/ul Normal 4.70-6.10 [facility] Comment on above: Performed By: #### U RTPCR #### [facility] [address] [place] [address] Dr. Dwight Waters WBC 7.5 103/ul Normal 4.0-11.0 [facility] Comment on above: Performed By: #### U RTPCR #### [facility] [address] [place] [address] Dr. Dwight Waters CHLORIDEon 06-06-2022 Chloride [Moles/Vol] 107 mmol/L Normal 98-107 [facility] Comment on above: Performed By: #### C BC #### [facility] [address] [address] [address] Dwight Waters CO2on 06-06-2022 CO2 [Moles/Vol] 27.4 mmol/L Normal 21.0-32.0 [facility] Comment on above: Performed By: #### C BC #### [facility] [address] [address] [address] Dwight Waters CREATININEon 06-06-2022 Creatinine [Mass/Vol] 1.20 mg/dL Normal 0.70-1.30 [facility] Comment on above: Performed By: #### C BC #### [facility] [address] [address] [address] Dwight Waters EGFR-AF DANISH >60 Normal >=60 [facility] Comment on above: Performed By: #### C BC #### [facility] [address] [place] [address] Dr. Dwight Waters EGFR-NON AF DANISH >60 Normal >=60 [facility] Comment on above: Performed By: #### C BC #### [facility] [address] [place] [address] Dr. Dwight Waters GGTon 06-06-2022 Gamma glutamyl transferase [Catalytic activity/Vol] 29 U/L Normal 15-85 [facility] Comment on above: Performed By: #### C BC #### [facility] [address] [address] [address] Dwight Waters GLUCOSE BLOODon 06-06-2022 Glucose [Mass/Vol] 112 mg/dL Critically high 74-106 [facility] Comment on above: Performed By: #### C BC #### [facility] [address] [place] [address] Dr. Dwight Waters MAGNESIUMon 06-06-2022 Magnesium [Mass/Vol] 1.3 mg/dL Critically low 1.8-2.4 [facility] Comment on above: Performed By: #### C MP #### [facility] [address] [place] [address] Dr. Dwight Waters NAon 06-06-2022 Sodium [Moles/Vol] 141 mmol/L Normal 136-145 [facility] Comment on above: Performed By: #### C MP #### [facility] [address] [place] [address] Dr. Dwight Waters PHOSPHORUSon 06-06-2022 Phosphate [Mass/Vol] 3.1 mg/dL Normal 2.6-4.7 [facility] Comment on above: Performed By: #### C MP #### [facility] [address] [place] [address] Dr. Dwight Waters POTASSIUMon 06-06-2022 Potassium [Moles/Vol] 4.3 mmol/L Normal 3.5-5.1 [facility] Comment on above: Performed By: #### C BC #### [facility] [address] [place] [address] Dr. Dwight Waters SGOTon 06-06-2022 AST [Catalytic activity/Vol] 16 U/L Normal 15-37 [facility] Comment on above: Performed By: #### C BC #### [facility] [address] [place] [address] Dr. Dwight Waters SGPTon 06-06-2022 ALT [Catalytic activity/Vol] 50 U/L Normal 16-63 [facility] Comment on above: Performed By: #### C BC #### [facility] [address] [place] [address] Dr. Dwight Waters Bacteria identified Cx Nom ( Bld)on 05-21-2022 Bacteria identified Cx Nom (Unsp spec) NO GROWTH DAY [address] [facility] Results may be compromised due to volume of BACT\ALERT bottle exceeding 10mLs . The optimal blood volume is 8-10 mls per aerobic/anaerobic blood culture bottle. [facility] CALCIUMon 05-20-2022 Calcium [Mass/Vol] 9.1 mg/dL 8.6 - 10. 5 mg/dL [facility] CBC,PLATELETSon 05-20-2022 Erythrocyte distribution width (RBC) [Ratio] 12.5 % 10.9 - 14.3 % [facility] Hematocrit (Bld) [Volume fraction] 37.1 % Low 39.6 - 48.8 % [facility] Hemoglobin (Bld) [Mass/Vol] 12.3 g/dL Low 13.4 - 16.8 g/dL [facility] Interpretation and review of laboratory results Abnormal [facility] MCH (RBC) [Entitic mass] 28.9 pg 26.1 - 33.3 pg [facility] MCHC (RBC) [Mass/Vol] 33.2 g/dL 31.9 - 36.5 g/dL [facility] MCV (RBC) [Entitic vol] 87.3 fL 79.0 - 94.5 fL [facility] Platelet mean volume (Bld) [Entitic vol] 9.9 fL 8.7 - 12.3 fL [facility] Platelets (Bld) [#/Vol] 234 10*3/uL 146 - 337 K/uL [facility] RBC (Bld) [#/Vol] 4.25 10*6/uL [facility] WBC (Bld) [#/Vol] 6.31 10*3/uL 3.73 - 10. 10 K/uL [facility] CHEM 7 (LYTES,BUN,CREA,GLUC) on 05-20-2022 Anion gap [Moles/Vol] 15 mmol/L 7 - 17 mmol/L [facility] Chloride [Moles/Vol] 111 mmol/L High 98 - 10 8 mmol/L [facility] CO2 [Moles/Vol] 22 mmol/L 21 - 31 mmol/L [facility] Creatinine [Mass/Vol] 1.10 mg/dL 0.70 - 1.30 mg/dL [facility] GFR/1.73 sq M.predicted CKD-EPI (S/P/Bld) [Vol rate/Area] 81 >=60 mL/min/1.73m2 [facility] Comment on above: Reported eGFR is bas ed on the CKD-EPI 2020 equation using creatinine, age, and sex. Glucose [Mass/Vol] 92 mg/dL 70 - 99 mg/dL [facility] Interpretation and review of laboratory results Abnormal [facility] Osmolality Calc [Osmolality] 302 [facility] Potassium [Moles/Vol] 4.4 mmol/L 3.5 - 5.0 mmol/L [facility] Sodium [Moles/Vol] 144 mmol/L 135 - 145 mmol/L [facility] Urea nitrogen [Mass/Vol] 18 mg/dL 7 - 25 mg/dL [facility] Urea nitrogen/Creatinine [Mass ratio] 16 mg/mg [facility] MAGNESIUMon 05-20-2022 Interpretation and review of laboratory results Abnormal [facility] Magnesium [Mass/Vol] 1.5 mg/dL Low 1.6 - 2 .6 mg/dL [facility] No Panel Informationon 05-20 Interpretation and review of laboratory results Normal [facility] PHOSPHATE, INORGANICon 05-20 Phosphate [Mass/Vol] 3.3 mg/dL 2.2 - 4 .6 mg/dL [facility] RF Unspecified body region V iews during surgeryon 05-20-2022 IMPRESSION: 1. Status post kidney transplant into the right lower quadrant. Entire right ureter including ureteral/ureteral anastomosis is patent without narrowing. No contrast leak from anastomosis. 2. Blunting/lobulated calyces and transplant kidney could be related to mild hydronephrosis as seen on prior ultrasound. Procedure performed by TIFFANY Neely under the direct supervision of Dr. Lizz Campos. I personally viewed and interpreted these images and I have reviewed and approved this report. OLOGY EXAM: XR FLUORO NEPHROSTOGRAM, 05/20/2022 12:49 PM COMPARISON: Renal ultrasound transplant scan on 05/16/2022 CLINICAL INDICATIONS: please evaluate distal ureter to identify obstruction if present. TECHNIQUE: Nephrostomy tube in the right lower quadrant renal transplant was accessed and injected with water-soluble contrast. Spot images were taken in multiple projections of kidneys, ureters, and bladder. FINDINGS: Barrel Polisher images: Barrel Polisher radiographs of the abdomen reveal a nonobstructive bowel gas pattern. Surgical clips, amber and suture material scattered throughout the abdomen. No definite pneumoperitoneum or pneumatosis. Stool is scattered sporadically throughout the colon. Atherosclerosis of the pelvic vessels. Degenerative changes in lumbar spine and pelvis. Percutaneous nephrostomy tube in the right lower quadrant. Kidneys: Cystografin is slowly injected into an existing nephrostomy tube located in the right lower kidney transplant collecting Transplanted kidneys calyces are mildly blunted. The transplanted kidney is distended with contrast that flows to a ureteral/ureteral anastomosis that is patent without narrowing or contrast leak. Distal right ureter below the anastomosis is normal in contour and caliber. Contrast refluxes up the ureter to the [place] right kidney that is grossly normal appearing. Contrast begins to fill the bladder that is grossly normal. Left kidney is not appreciated during this exam. RADIOLOGY Lizz Campos MD - 05/20/2022 EXAM: XR FLUORO NEPHROSTOGRAM, 05/20/2022 12:49 PM COMPARISON: Renal ultrasound transplant scan on 05/16/2022 CLINICAL INDICATIONS: please evaluate distal ureter to identify obstruction if present. TECHNIQUE: Nephrostomy tube in the right lower quadrant renal transplant was accessed and injected with water-soluble contrast. Spot images were taken in multiple projections of kidneys, ureters, and bladder. FINDINGS: Barrel Polisher images: Barrel Polisher radiographs of the abdomen reveal a nonobstructive bowel gas pattern. Surgical clips, amber and suture material scattered throughout the abdomen. No definite pneumoperitoneum or pneumatosis. Stool is scattered sporadically throughout the colon. Atherosclerosis of the pelvic vessels. Degenerative changes in lumbar spine and pelvis. Percutaneous nephrostomy tube in the right lower quadrant. Kidneys: Cystografin is slowly injected into an existing nephrostomy tube located in the right lower kidney transplant collecting Transplanted kidneys calyces are mildly blunted. The transplanted kidney is distended with contrast that flows to a ureteral/ureteral anastomosis that is patent without narrowing or contrast leak. Distal right ureter below the anastomosis is normal in contour and caliber. Contrast refluxes up the ureter to the [place] right kidney that is grossly normal appearing. Contrast begins to fill the bladder that is grossly normal. Left kidney is not appreciated during this exam. IMPRESSION IMPRESSION: 1. Status post kidney transplant into the right lower quadrant. Entire right ureter including ureteral/ureteral anastomosis is patent without narrowing. No contrast leak from anastomosis. 2. Blunting/lobulated calyces and transplant kidney could be related to mild hydronephrosis as seen on prior ultrasound. Procedure performed by TIFFANY Neely under the direct supervision of Dr. Lizz Campos. I personally viewed and interpreted these images and I have reviewed and approved this report. [facility] Radiology Study observation (narrative) [facility] RF Unspecified body region V iews during surgeryOrdered By: Lizz Campos on 05-20-2022 [facility] Work Phone: CALCIUMon 05-19-2022 Calcium [Mass/Vol] 9.2 mg/dL 8.6 - 10. 5 mg/dL [facility] Calcium [Mass/Vol] 8.6 mg/dL 8.6 - 10. 5 mg/dL [facility] CBC,PLATELETSon 05-19-2022 Erythrocyte distribution width (RBC) [Ratio] 12.4 % 10.9 - 14.3 % [facility] Hematocrit (Bld) [Volume fraction] 38.0 % Low 39.6 - 48.8 % [facility] Hemoglobin (Bld) [Mass/Vol] 12.0 g/dL Low 13.4 - 16.8 g/dL [facility] Interpretation and review of laboratory results Abnormal [facility] MCH (RBC) [Entitic mass] 28.6 pg 26.1 - 33.3 pg [facility] MCHC (RBC) [Mass/Vol] 31.6 g/dL Low 31.9 - 36.5 g/dL [facility] MCV (RBC) [Entitic vol] 90.5 fL 79.0 - 94.5 fL [facility] Platelet mean volume (Bld) [Entitic vol] 9.7 fL 8.7 - 12.3 fL [facility] Platelets (Bld) [#/Vol] 199 10*3/uL 146 - 337 K/uL [facility] RBC (Bld) [#/Vol] 4.20 10*6/[facility] [#/Vol] 6.81 10*3/uL 3.73 - 10. 10 K/uL [facility] CHEM 7 (LYTES,BUN,CREA,GLUC) on 05-19-2022 Anion gap [Moles/Vol] 13 mmol/L 7 - 17 mmol/L [facility] Chloride [Moles/Vol] 105 mmol/L 98 - 10 8 mmol/L [facility] CO2 [Moles/Vol] 30 mmol/L 21 - 31 mmol/L [facility] Creatinine [Mass/Vol] 1.39 mg/dL High 0.70 - 1.30 mg/dL [facility] GFR/1.73 sq M.predicted CKD-EPI (S/P/Bld) [Vol rate/Area] 61 >=60 mL/min/1.73m2 [facility] Comment on above: Reported eGFR is bas ed on the CKD-EPI 2020 equation using creatinine, age, and sex. Glucose [Mass/Vol] 121 mg/dL High 70 - 99 mg/dL [facility] Interpretation and review of laboratory results Abnormal [facility] Osmolality Calc [Osmolality] 303 [facility] Potassium [Moles/Vol] 3.8 mmol/L 3.5 - 5.0 mmol/L [facility] Sodium [Moles/Vol] 144 mmol/L 135 - 145 mmol/L [facility] Urea nitrogen [Mass/Vol] 18 mg/dL 7 - 25 mg/dL [facility] Urea nitrogen/Creatinine [Mass ratio] 13 mg/mg [facility] Anion gap [Moles/Vol] 15 mmol/L 7 - 17 mmol/L [facility] Chloride [Moles/Vol] 106 mmol/L 98 - 10 8 mmol/L [facility] CO2 [Moles/Vol] 24 mmol/L 21 - 31 mmol/L [facility] Creatinine [Mass/Vol] 1.46 mg/dL High 0.70 - 1.30 mg/dL [facility] GFR/1.73 sq M.predicted CKD-EPI (S/P/Bld) [Vol rate/Area] 58 Low >=60 mL/min/1.73m2 [facility] Comment on above: Reported eGFR is bas ed on the CKD-EPI 2020 equation using creatinine, age, and sex. Glucose [Mass/Vol] 103 mg/dL High 70 - 99 mg/dL [facility] Interpretation and review of laboratory results Abnormal [facility] Osmolality Calc [Osmolality] 298 [facility] Potassium [Moles/Vol] 3.9 mmol/L 3.5 - 5.0 mmol/L [facility] Sodium [Moles/Vol] 141 mmol/L 135 - 145 mmol/L [facility] Urea nitrogen [Mass/Vol] 21 mg/dL 7 - 25 mg/dL [facility] Urea nitrogen/Creatinine [Mass ratio] 14 mg/mg [facility] MAGNESIUMon 05-19-2022 Magnesium [Mass/Vol] 2.0 mg/dL 1.6 - 2 .6 mg/dL [facility] Magnesium [Mass/Vol] 1.7 mg/dL 1.6 - 2 .6 mg/dL [facility] No Panel Informationon 05-19 Interpretation and review of laboratory results Normal [facility] Interpretation and review of laboratory results Normal [facility] PHOSPHATE, INORGANICon 05-19 Phosphate [Mass/Vol] 3.0 mg/dL 2.2 - 4 .6 mg/dL [facility] Phosphate [Mass/Vol] 2.7 mg/dL 2.2 - 4 .6 mg/dL [facility] CALCIUMon 05-18-2022 Calcium [Mass/Vol] 9.1 mg/dL 8.6 - 10. 5 mg/dL [facility] CBC,PLATELETSon 05-18-2022 Erythrocyte distribution width (RBC) [Ratio] 12.5 % 10.9 - 14.3 % [facility] Hematocrit (Bld) [Volume fraction] 37.3 % Low 39.6 - 48.8 % [facility] Hemoglobin (Bld) [Mass/Vol] 11.9 g/dL Low 13.4 - 16.8 g/dL [facility] Interpretation and review of laboratory results Abnormal [facility] MCH (RBC) [Entitic mass] 28.9 pg 26.1 - 33.3 pg [facility] MCHC (RBC) [Mass/Vol] 31.9 g/dL 31.9 - 36.5 g/dL [facility] MCV (RBC) [Entitic vol] 90.5 fL 79.0 - 94.5 fL [facility] Platelet mean volume (Bld) [Entitic vol] 10.1 fL 8.7 - 12.3 fL [facility] Platelets (Bld) [#/Vol] 189 10*3/uL 146 - 337 K/uL [facility] RBC (Bld) [#/Vol] 4.12 10*6/uL Low [facility] WBC (Bld) [#/Vol] 10.19 10*3/uL High 3.73 - 10 .10 K/uL [facility] CHEM 7 (LYTES,BUN,CREA,GLUC) on 05-18-2022 Anion gap [Moles/Vol] 13 mmol/L 7 - 17 mmol/L [facility] Chloride [Moles/Vol] 102 mmol/L 98 - 10 8 mmol/L [facility] CO2 [Moles/Vol] 26 mmol/L 21 - 31 mmol/L [facility] Creatinine [Mass/Vol] 1.91 mg/dL High 0.70 - 1.30 mg/dL [facility] GFR/1.73 sq M.predicted CKD-EPI (S/P/Bld) [Vol rate/Area] 42 Low >=60 mL/min/1.73m2 [facility] Comment on above: Reported eGFR is bas ed on the CKD-EPI 2020 equation using creatinine, age, and sex. Glucose [Mass/Vol] 158 mg/dL High 70 - 99 mg/dL [facility] Osmolality Calc [Osmolality] [address] [facility] Potassium [Moles/Vol] 4.0 mmol/L 3.5 - 5.0 mmol/L [facility] Sodium [Moles/Vol] 137 mmol/L 135 - 145 mmol/L [facility] Urea nitrogen [Mass/Vol] 30 mg/dL High 7 - 25 mg/[facility] Urea nitrogen/Creatinine [Mass ratio] 16 mg/mg [facility] CHEM 7 (LYTES,BUN,CREA,GLUC) Ordered By: Tamiko Thapa on 05-18-2022 Anion gap [Moles/Vol] 13 mmol/L 7 - 17 mmol/[facility] Chloride [Moles/Vol] 104 mmol/L 98 - 10 8 mmol/L [facility] CO2 [Moles/Vol] 26 mmol/L 21 - 31 mmol/[facility] Creatinine [Mass/Vol] 2.96 mg/dL High 0.70 - 1.30 mg/dL [facility] GFR/1.73 sq M.predicted CKD-EPI (S/P/Bld) [Vol rate/Area] 25 Low >=60 mL/min/1.73m2 [facility] Comment on above: Reported eGFR is bas ed on the CKD-EPI 2020 equation using creatinine, age, and sex. Glucose [Mass/Vol] 136 mg/dL High 70 - 99 mg/dL [facility] Interpretation and review of laboratory results Abnormal [facility] Osmolality Calc [Osmolality] [address] [facility] Potassium [Moles/Vol] 4.2 mmol/L 3.5 - 5.0 mmol/L [facility] Sodium [Moles/Vol] 139 mmol/L 135 - 145 mmol/L [facility] Urea nitrogen [Mass/Vol] 41 mg/dL High 7 - 25 mg/dL [facility] Urea nitrogen/Creatinine [Mass ratio] 14 mg/mg [facility] MAGNESIUMon 05-18-2022 Magnesium [Mass/Vol] 2.2 mg/dL 1.6 - 2 .6 mg/dL [facility] Interpretation and review of laboratory results Normal [facility] Magnesium [Mass/Vol] 1.7 mg/dL 1.6 - 2 .6 mg/dL [facility] No Panel Informationon 05-18 Interpretation and review of laboratory results Abnormal [facility] Interpretation and review of laboratory results Normal [facility] PHOSPHATE, INORGANICon 05-18 Phosphate [Mass/Vol] 2.0 mg/dL Low 2.2 - 4 .6 mg/dL [facility] Interpretation and review of laboratory results Normal [facility] Phosphate [Mass/Vol] 2.8 mg/dL 2.2 - 4 .6 mg/dL [facility] PT,INR,PTTon 05-18-2022 aPTT Coag (PPP) [Time] 31.0 s [facility] INR Coag (Bld) [Relative time] 1.1 {INR} [facility] Interpretation and review of laboratory results Abnormal [facility] PT Coag (PPP) [Time] 14.4 s High [facility] URINE CULTUREOrdered By: Sylvia Campos on 05-18-2022 Bacteria identified Cx Nom (Unsp spec) No Growth [facility] CBC,PLATELETSon 05-17-2022 Erythrocyte distribution width (RBC) [Ratio] 12.8 % 10.9 - 14.3 % [facility] Hematocrit (Bld) [Volume fraction] 42.8 % 39.6 - 48.8 % [facility] Hemoglobin (Bld) [Mass/Vol] 13.3 g/dL Low 13.4 - 16.8 g/dL [facility] Interpretation and review of laboratory results Abnormal [facility] MCH (RBC) [Entitic mass] 28.9 pg 26.1 - 33.3 pg [facility] MCHC (RBC) [Mass/Vol] 31.1 g/dL Low 31.9 - 36.5 g/dL [facility] MCV (RBC) [Entitic vol] 92.8 fL 79.0 - 94.5 fL [facility] Platelet mean volume (Bld) [Entitic vol] 10.3 fL 8.7 - 12.3 fL [facility] Platelets (Bld) [#/Vol] 188 10*3/uL 146 - 337 K/uL [facility] RBC (Bld) [#/Vol] 4.61 10*6/uL [facility] WBC (Bld) [#/Vol] 16.61 10*3/uL High 3.73 - 10 .10 K/uL [facility] CHEM 7 (LYTES,BUN,CREA,GLUC) Ordered By: Kaylah Mc on 05-17-2022 Anion gap [Moles/Vol] 15 mmol/L 7 - 17 mmol/L [facility] Chloride [Moles/Vol] 103 mmol/L 98 - 10 8 mmol/L [facility] CO2 [Moles/Vol] 23 mmol/L 21 - 31 mmol/L [facility] Creatinine [Mass/Vol] 5.95 mg/dL High 0.70 - 1.30 mg/dL [facility] GFR/1.73 sq M.predicted CKD-EPI (S/P/Bld) [Vol rate/Area] 11 Low >=60 mL/min/1.73m2 [facility] Comment on above: Reported eGFR is bas ed on the CKD-EPI 2020 equation using creatinine, age, and sex. Glucose [Mass/Vol] 165 mg/dL High 70 - 99 mg/dL [facility] Interpretation and review of laboratory results Abnormal [facility] Osmolality Calc [Osmolality] 305 [facility] Potassium [Moles/Vol] 4.6 mmol/L 3.5 - 5.0 mmol/L [facility] Sodium [Moles/Vol] 136 mmol/L 135 - 145 mmol/L [facility] Urea nitrogen [Mass/Vol] 52 mg/dL High 7 - 25 mg/dL [facility] Urea nitrogen/Creatinine [Mass ratio] 9 mg/mg [facility] CHEM 7 (LYTES,BUN,CREA,GLUC) Ordered By: Kehinde Olsen on 05-17-2022 Anion gap [Moles/Vol] 24 mmol/L High 7 - 17 mmol/L [facility] Chloride [Moles/Vol] 100 mmol/L 98 - 10 8 mmol/L [facility] CO2 [Moles/Vol] 16 mmol/L Low 21 - 31 mmol/L [facility] Creatinine [Mass/Vol] 8.08 mg/dL High 0.70 - 1.30 mg/dL [facility] GFR/1.73 sq M.predicted CKD-EPI (S/P/Bld) [Vol rate/Area] 7 Low >=60 mL/min/1.73m2 [facility] Comment on above: Reported eGFR is bas ed on the CKD-EPI 2020 equation using creatinine, age, and sex. Glucose [Mass/Vol] 164 mg/dL High 70 - 99 mg/dL [facility] Interpretation and review of laboratory results Abnormal [facility] Osmolality Calc [Osmolality] 305 [facility] Potassium [Moles/Vol] 5.0 mmol/L 3.5 - 5.0 mmol/L [facility] Sodium [Moles/Vol] 135 mmol/L 135 - 145 mmol/L [facility] Urea nitrogen [Mass/Vol] 56 mg/dL High 7 - 25 mg/dL [facility] Urea nitrogen/Creatinine [Mass ratio] 7 mg/mg [facility] LAVENDER TOP TUBEon 05-17-20 [facility] MAGNESIUMon 05-17-2022 Interpretation and review of laboratory results Normal [facility] Magnesium [Mass/Vol] 1.8 mg/dL 1.6 - 2 .6 mg/dL [facility] Interpretation and review of laboratory results Normal [facility] Magnesium [Mass/Vol] 1.6 mg/dL 1.6 - 2 .6 mg/dL [facility] No Panel Informationon 05-[address] [facility] PHOSPHATE, INORGANICon 05-17 Interpretation and review of laboratory results Abnormal [facility] Phosphate [Mass/Vol] 4.9 mg/dL High 2.2 - 4 .6 mg/dL [facility] PT,INR,PTTon 05-17-2022 aPTT Coag (PPP) [Time] 33.0 s [facility] INR Coag (Bld) [Relative time] 1.3 {INR} High [facility] Interpretation and review of laboratory results Abnormal [facility] PT Coag (PPP) [Time] 15.7 s High [facility] Portable XR Chest Viewson IMPRESSION: No acute findings. OLOGY EXAM: XR CHEST PORTABLE, 05/17/2022 14:39 PM COMPARISON: May 15, 2022 CLINICAL INDICATIONS: hypoxia RELEVANT CLINICAL HISTORY: FINDINGS: (Adequate technique) Implanted Devices: None Thorax: Lungs are clear. No pneumothorax or effusion. Stable cardiomegaly. RADIOLOGY David Sanz, DO - 05/17/2022 EXAM: XR CHEST PORTABLE, 05/17/2022 14:39 PM COMPARISON: May 15, 2022 CLINICAL INDICATIONS: hypoxia RELEVANT CLINICAL HISTORY: FINDINGS: (Adequate technique) Implanted Devices: None Thorax: Lungs are clear. No pneumothorax or effusion. Stable cardiomegaly. IMPRESSION IMPRESSION: No acute findings. [facility] Radiology Study observation (narrative) [facility] Portable XR Chest ViewsOrder ed By: David Sanz on 05-17-2022 [facility] Work Phone: URINALYSISOrdered By: Michael patel Ma on 05-17-2022 Appearance (U) Cloudy Abnormal Clear [facility] Comment on above: Results may be inacc urate due to color interference. Clinical correlation recommended. Bacteria LM Ql (Urine sed) ABSENT ABSENT [facility] Color (U) Red Abnormal Yellow [facility] Comment on above: Results may be inacc urate due to color interference. Clinical correlation recommended. Epithelial cells.squamous LM Ql (Urine sed) ABSENT 1/hpf = 1+, 2-5/hpf = 2+, 0/hpf = 0+, ABSENT [facility] Glucose Test strip (U) [Mass/Vol] Negative Negative [facility] Comment on above: Results may be inacc urate due to color interference. Clinical correlation recommended. Interpretation and review of laboratory results Abnormal [facility] Ketones (U) [Mass/Vol] Trace Abnormal Negative [facility] Comment on above: Results may be inacc urate due to color interference. Clinical correlation recommended. Leukocyte esterase Test strip Ql (U) Large Abnormal Negative [facility] Comment on above: Results may be inacc urate due to color interference. Clinical correlation recommended. Nitrite Ql (U) Negative Negative [facility] Comment on above: Results may be inacc urate due to color interference. Clinical correlation recommended. pH (U) 5.0 [pH] 5.0 - 7.0 [facility] Comment on above: Results may be inacc urate due to color interference. Clinical correlation recommended. Protein (U) [Mass/Vol] mg/dL Abnormal Negative [facility] Comment on above: Results may be inacc urate due to color interference. Clinical correlation recommended. RBC (U) [#/Vol] Large Abnormal Negative [facility] Comment on above: Results may be inacc urate due to color interference. Clinical correlation recommended. RBC LM.HPF (Urine sed) [#/Area] /[HPF] Abnormal 0 - 2 /HPF [facility] Specific gravity (U) [Rel density] 1.016 [facility] Comment on above: Results may be inacc urate due to color interference. Clinical correlation recommended. Urobilinogen (U) [Mass/Vol] 0.2 E.U./dL 0.2 E.U/dL, 1.0 E.U/dL [facility] Comment on above: Results may be inacc urate due to color interference. Clinical correlation recommended. WBC LM.HPF (Urine sed) [#/Area] /[HPF] Abnormal 0 - 5 /HPF [facility] URINE CULTUREOrdered By: Tyler Tiwari on 05-17-2022 Bacteria identified Cx Nom (Unsp spec) No Growth [facility] CBC,PLATELETSon 05-16-2022 Erythrocyte distribution width (RBC) [Ratio] 12.9 % 10.9 - 14.3 % [facility] Hematocrit (Bld) [Volume fraction] 46.5 % 39.6 - 48.8 % [facility] Hemoglobin (Bld) [Mass/Vol] 14.7 g/dL 13.4 - 16.8 g/dL [facility] Interpretation and review of laboratory results Abnormal [facility] MCH (RBC) [Entitic mass] 28.3 pg 26.1 - 33.3 pg [facility] MCHC (RBC) [Mass/Vol] 31.6 g/dL Low 31.9 - 36.5 g/dL [facility] MCV (RBC) [Entitic vol] 89.6 fL 79.0 - 94.5 fL [facility] Platelet mean volume (Bld) [Entitic vol] 10.3 fL 8.7 - 12.3 fL [facility] Platelets (Bld) [#/Vol] 188 10*3/uL 146 - 337 K/uL [facility] RBC (Bld) [#/Vol] 5.19 10*6/uL [facility] WBC (Bld) [#/Vol] 12.55 10*3/uL High 3.73 - 10 .10 K/uL [facility] CHEM 7 (LYTES,BUN,CREA,GLUC) Ordered By: Alma Pena on 05-16-2022 Anion gap [Moles/Vol] 14 mmol/L 7 - 17 mmol/L [facility] Chloride [Moles/Vol] 103 mmol/L 98 - 10 8 mmol/L [facility] CO2 [Moles/Vol] 22 mmol/L 21 - 31 mmol/L [facility] Creatinine [Mass/Vol] 6.09 mg/dL High 0.70 - 1.30 mg/dL [facility] GFR/1.73 sq M.predicted CKD-EPI (S/P/Bld) [Vol rate/Area] 10 Low >=60 mL/min/1.73m2 [facility] Comment on above: Reported eGFR is bas ed on the CKD-EPI 2020 equation using creatinine, age, and sex. Glucose [Mass/Vol] 134 mg/dL High 70 - 99 mg/dL [facility] Interpretation and review of laboratory results Abnormal [facility] Osmolality Calc [Osmolality] 298 [facility] Potassium [Moles/Vol] 4.9 mmol/L 3.5 - 5.0 mmol/L [facility] Sodium [Moles/Vol] 134 mmol/L Low 135 - 145 mmol/L [facility] Comment on above: Results inconsistent with previous results Urea nitrogen [Mass/Vol] 49 mg/dL High 7 - 25 mg/dL [facility] Urea nitrogen/Creatinine [Mass ratio] 8 mg/mg [facility] CHEM 7 (LYTES,BUN,CREA,GLUC) on 05-16-2022 Anion gap [Moles/Vol] 17 mmol/L 7 - 17 mmol/L [facility] Chloride [Moles/Vol] 106 mmol/L 98 - 10 8 mmol/L [facility] CO2 [Moles/Vol] 22 mmol/L 21 - 31 mmol/L [facility] Creatinine [Mass/Vol] 5.23 mg/dL High 0.70 - 1.30 mg/dL [facility] GFR/1.73 sq M.predicted CKD-EPI (S/P/Bld) [Vol rate/Area] 13 Low >=60 mL/min/1.73m2 [facility] Comment on above: Reported eGFR is bas ed on the CKD-EPI 2020 equation using creatinine, age, and sex. Glucose [Mass/Vol] 116 mg/dL High 70 - 99 mg/dL [facility] Interpretation and review of laboratory results Abnormal [facility] Osmolality Calc [Osmolality] 305 [facility] Potassium [Moles/Vol] 4.6 mmol/L 3.5 - 5.0 mmol/L [facility] Sodium [Moles/Vol] 140 mmol/L 135 - 145 mmol/L [facility] Urea nitrogen [Mass/Vol] 42 mg/dL High 7 - 25 mg/dL [facility] Urea nitrogen/Creatinine [Mass ratio] 8 mg/mg [facility] EXTRA MICROon 05-16-2022 [facility] LT BLUE TOP TUBEon 2 [facility] LYTES (NA, K, CL) - URINE - RANDOMon 05-16-2022 Chloride (24H U) [Moles/Vol] 68 mmol/L [facility] Potassium (24H U) [Moles/Vol] 36.7 mmol/L [facility] Sodium (24H U) [Moles/Vol] 55 mmol/L [facility] The reference range has not been established for random urine specimens. The test result should be integrated into the clinical context for interpretation. [facility] MAGNESIUMon 05-16-2022 Interpretation and review of laboratory results Normal [facility] Magnesium [Mass/Vol] 1.7 mg/dL 1.6 - 2 .6 mg/dL [facility] NOVEL CORONAVIRUS PCROrdered By: Edson Candelario on 05-16-2022 SARS-CoV-2 (COVID-19) RNA ESTELITA+probe Ql (Unsp spec) Not detected NOT DETECTED [facility] Comment on above: [facility] Negative results do not preclude SARS-CoV-2 infection and should not be used as the sole basis for treatment or other patient management decisions. Optimum specimen types and timing for peak viral levels during infections caused by SARS-CoV-2 has not been determined. The possibility of a false negative result should especially be considered if the patient's recent exposures or clinical presentation suggest that SARS-CoV-2 infection is probable, and diagnostic tests for other causes of illness (e.g., other respiratory illness) are negative. Collection of a new specimen and re-testing may be necessary if the patient is critically ill or clinically deteriorating. SARS-CoV-2 (COVID-19) RNA ESTELITA+probe Ql (Unsp spec) This test was performed using real time PCR and has been approved for the qualitative detection of SARS-CoV-2 nucleic acid. The test has been authorized by the FDA under an emergency use authorization for use by authorized laboratories. [facility] No Panel Informationon 05-16 [facility] OSMOLALITY, URINEon 05-16-20 Interpretation and review of laboratory results Normal [facility] Osmolality (U) [Osmolality] 320 mosm/kg [facility] The reference range has not been established for random urine specimens. The test result should be integrated into the clinical context for interpretation. [facility] PROCALCITONINon 05-16-2022 Interpretation and review of laboratory results Normal [facility] Procalcitonin [Mass/Vol] 0.18 ng/mL <0.50 [facility] Comment on above: Procalcitonin is an FDA-approved assay to help manage antibiotic treatment in patients with sepsis/septic shock and lower respiratory tract infections. Specifically, trending procalcitonin in these situations can be used to reduce the duration of antibiotics. Please refer to the Procalcitonin Guide on the [employer] Webpage for more guidance on how to use and trend procalcitonin in various clinical settings. [email or web address]&action=[email or web address] Two common cutoffs associated with bacterial infections are as follows. Respiratory tract infections: >0.25 ng/mL Sepsis/septic shock: >0.5 ng/mL Procalcitonin should not be used alone as a diagnostic tool, however. All procalcitonin results should be interpreted in association with the patients clinical condition and all laboratory findings. [facility] PT,INR,PTTon 05-16-2022 aPTT Coag (PPP) [Time] 30.3 s [facility] INR Coag (Bld) [Relative time] 1.1 {INR} [facility] Interpretation and review of laboratory results Normal [facility] PT Coag (PPP) [Time] 14.1 s [facility] SARS-CoV-2 (COVID-19) RNA NA A+probe Ql (Unsp spec)Ordered By: Edson Candelario on 05-16-2022 Interpretation and review of laboratory results Normal [facility] TACROLIMUS LEVEL, TROUGH (OH E DRUG LEVEL)Ordered By: Mariama Nick on 05-16-2022 Interpretation and review of laboratory results Normal [facility] Tacrolimus (Bld) [Mass/Vol] 4.1 ng/mL Bone Marrow Transplant: 4.0-12.0, Therapeutic: 5.0-15.0 [facility] Method performed is a chemiluminescent microparticle immunoasssay on the [employer] i2000. The range is based on experience at [facility] and users should be aware that target concentrations vary widely depending on concomitant therapy, time post-transplant, and desired degree of immunosuppression. [facility] URINE PROTEIN/CREA RATIO, RA Smiley 05-16-2022 Creatinine (24H U) [Mass/Vol] 59.82 mg/dL [facility] Protein Unsp time (U) [Mass/Vol] 111 mg/dL [facility] Protein/Creatinine (U) [Mass ratio] 1.856 mg/g [facility] US for transplanted kidney l imitedon 05-16-2022 IMPRESSION: 1. 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 This appears to be stable or decreased from previous CT of the abdomen and pelvis within limitations of modality difference. 2. The renal transplant is otherwise unremarkable in appearance. No perinephric fluid collections. 3. Resistive indices are mildly elevated. Otherwise normal appearing vascular flow in the transplant kidney. OLOGY EXAM: US RENAL TRANSPLANT SCAN, 05/16/2022 15:19 PM CLINICAL INDICATIONS: Concern for worsening hydronephrosis. COMPARISON: Renal transplant sonogram, 05/10/[address] of the abdomen and pelvis, 05/15/2022. TECHNIQUE: Real-time sung scale ultrasound images of the renal transplant in the right lower quadrant were obtained in longitudinal and transverse orientations utilizing a curved array transducer. Color and duplex doppler imaging was used to evaluate vascular flow. FINDINGS: Transplant Kidney: The transplanted kidney is identified in the right lower quadrant. It measures 15.9 cm in length. Cortex: The renal cortex has a smooth contour, and echogenicity appears normal. No perinephric fluid collections or obvious renal calculi or masses are evident. There is pelvocaliectasis/mild hydronephrosis of the transplant kidney. This is probably stable to slight decreased since the prior CT. Doppler: Duplex imaging demonstrates normal arterial waveforms in the renal artery. Peak systolic velocity (PSV) in the renal artery: 41 cm/s Acceleration time (AT): 48 ms Peak systolic velocity (PSV) in the external iliac artery: 86 cm/s Ratio of PSV(renal) to PSV(iliac): 0.5 Intrarenal arterial resistive indices as follows: Upper pole: 0.81 Interpolar: 0.81 Lower pole: 0.82 (range of resistive indices on the previous examination was 0.70-0.72). Bladder: The bladder is decompressed with a Myers catheter. Abdomen: No ascites in the visualized images. RADIOLOGY Rosendo Matute MD - 05/16/2022 EXAM: US RENAL TRANSPLANT SCAN, 05/16/2022 15:19 PM CLINICAL INDICATIONS: Concern for worsening hydronephrosis. COMPARISON: Renal transplant sonogram, 05/10/[address] of the abdomen and pelvis, 05/15/2022. TECHNIQUE: Real-time sung scale ultrasound images of the renal transplant in the right lower quadrant were obtained in longitudinal and transverse orientations utilizing a curved array transducer. Color and duplex doppler imaging was used to evaluate vascular flow. FINDINGS: Transplant Kidney: The transplanted kidney is identified in the right lower quadrant. It measures 15.9 cm in length. Cortex: The renal cortex has a smooth contour, and echogenicity appears normal. No perinephric fluid collections or obvious renal calculi or masses are evident. There is pelvocaliectasis/mild hydronephrosis of the transplant kidney. This is probably stable to slight decreased since the prior CT. Doppler: Duplex imaging demonstrates normal arterial waveforms in the renal artery. Peak systolic velocity (PSV) in the renal artery: 41 cm/s Acceleration time (AT): 48 ms Peak systolic velocity (PSV) in the external iliac artery: 86 cm/s Ratio of PSV(renal) to PSV(iliac): 0.5 Intrarenal arterial resistive indices as follows: Upper pole: 0.81 Interpolar: 0.81 Lower pole: 0.82 (range of resistive indices on the previous examination was 0.70-0.72). Bladder: The bladder is decompressed with a Myers catheter. Abdomen: No ascites in the visualized images. IMPRESSION IMPRESSION: 1. 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 This appears to be stable or decreased from previous CT of the abdomen and pelvis within limitations of modality difference. 2. The renal transplant is otherwise unremarkable in appearance. No perinephric fluid collections. 3. Resistive indices are mildly elevated. Otherwise normal appearing vascular flow in the transplant kidney. [facility] Radiology Study observation (narrative) [facility] US for transplanted kidney l imitedOrdered By: Rosendo Matute on 05-16-2022 [facility] Work Phone: CBC AND ELECTRONIC DIFFon Basophils (Bld) [#/Vol] 10*3/uL 0.00 - 0.09 K/uL [facility] Basophils/100 WBC (Bld) 0.2 % [facility] Differential cell count method Nom (Bld) Electronic Differential [facility] Eosinophils (Bld) [#/Vol] 10*3/uL 0.00 - 0.48 K/uL [facility] Eosinophils/100 WBC (Bld) 0.0 % [facility] Erythrocyte distribution width (RBC) [Ratio] 12.8 % 10.9 - 14.3 % [facility] Hematocrit (Bld) [Volume fraction] 46.0 % 39.6 - 48.8 % [facility] Hemoglobin (Bld) [Mass/Vol] 14.6 g/dL 13.4 - 16.8 g/dL [facility] Immature granulocytes (Bld) [#/Vol] 0.07 10*3/uL <=0.08 [facility] Immature granulocytes/100 WBC (Bld) 0.4 % [facility] Interpretation and review of laboratory results Abnormal [facility] Lymphocytes (Bld) [#/Vol] 1.49 10*3/uL 0.83 - 3.57 K/uL [facility] Lymphocytes/100 WBC (Bld) 9.4 % [facility] MCH (RBC) [Entitic mass] 28.2 pg 26.1 - 33.3 pg [facility] MCHC (RBC) [Mass/Vol] 31.7 g/dL Low 31.9 - 36.5 g/dL [facility] MCV (RBC) [Entitic vol] 89.0 fL 79.0 - 94.5 fL [facility] Monocytes (Bld) [#/Vol] 1.45 10*3/uL High 0.24 - 0.93 K/uL [facility] Monocytes/100 WBC (Bld) 9.2 % [facility] Neutrophils (Bld) [#/Vol] 12.77 10*3/uL High 1.57 - 6.19 K/uL [facility] Nucleated RBC/100 WBC (Bld) [Ratio] 0.0 % <=0.2 /100 WBC [facility] Platelet mean volume (Bld) [Entitic vol] 9.9 fL 8.7 - 12.3 fL [facility] Platelets (Bld) [#/Vol] 250 10*3/uL 146 - 337 K/uL [facility] RBC (Bld) [#/Vol] 5.17 10*6/uL [facility] Segmented neutrophils/100 WBC (Bld) 80.8 % [facility] WBC (Bld) [#/Vol] 15.81 10*3/uL High 3.73 - 10 .10 K/uL [facility] CBC AUTO DIFFon 05-15-2022 BASO # 0.0 103/ul Normal 0.0-0.1 [facility] Comment on above: Performed By: #### C BC #### [facility] [address] [address] [address] Dwight Waters Basophils/100 WBC (Bld) 0.3 % Normal 0.2-2.0 [facility] Comment on above: Performed By: #### C BC #### [facility] [address] [address] [address] Dwight Waters EO # 0.1 103/ul Normal 0.0-0.7 [facility] Comment on above: Performed By: #### C BC #### [facility] [address] [place] [address] Dr. Dwight Waters Eosinophils/100 WBC (Bld) 0.8 % Critically low 0.9-7.0 [facility] Comment on above: Performed By: #### C BC #### [facility] [address] [address] [address] Dwight Waters Erythrocyte distribution width (RBC) [Ratio] 12.7 % Normal 11.0-15.0 [facility] Comment on above: Performed By: #### C BC #### [facility] [address] [place] [address] Dr. Dwight Waters Hematocrit (Bld) [Volume fraction] 43.5 % Normal 42.0-54.0 [facility] Comment on above: Performed By: #### C BC #### [facility] [address] [address] [address] Dwight Waters Hemoglobin (Bld) [Mass/Vol] 14.4 g/dL Normal 14.0-18.0 [facility] Comment on above: Performed By: #### C BC #### [facility] [address] [address] [address] Dwight Waters IG # 0.02 10e3/ul Normal 0.00-0.03 [facility] Comment on above: Performed By: #### C BC #### [facility] [address] [place] [address] Dr. Dwight Waters IG % 0.2 % Normal 0.0-0.5 [facility] Comment on above: Performed By: #### C BC #### [facility] [address] [place] [address] Dr. Dwight Waters LYMPH # 1.5 103/ul Normal 1.2-3.8 [facility] Comment on above: Performed By: #### C BC #### [facility] [address] [place] [address] Dr. Dwight Waters Lymphocytes/100 WBC (Bld) 12.5 % Critically low 20.5-60.0 [facility] Comment on above: Performed By: #### C BC #### [facility] [address] [place] [address] Dr. Dwight Waters MANUAL DIFF REQ NO Normal [facility] Comment on above: Performed By: #### C BC #### [facility] [address] [place] [address] Dr. Dwight Waters MCH (RBC) [Entitic mass] 28.6 pg Normal 25.9-34.0 [facility] Comment on above: Performed By: #### C BC #### [facility] [address] [place] [address] Dr. Dwight Waters MCHC (RBC) [Mass/Vol] 33.1 g/dL Normal 29.9-35.2 [facility] Comment on above: Performed By: #### C BC #### [facility] [address] [place] [address] Dr. Dwight Waters MCV (RBC) [Entitic vol] 86.3 fL Normal 80.0-94.0 [facility] Comment on above: Performed By: #### C BC #### [facility] [address] [place] [address] Dr. Dwight Waters MONO # 1.0 103/ul Critically high 0.3-0.8 [facility] Comment on above: Performed By: #### C BC #### [facility] [address] [address] [address] Dwight Waters Monocytes/100 WBC (Bld) 8.2 % Normal 1.7-12.0 [facility] Comment on above: Performed By: #### C BC #### [facility] [address] [address] [address] Dwight Waters NEUT # 9.1 103/ul Critically high 1.4-6.5 [facility] Comment on above: Performed By: #### C BC #### [facility] [address] [address] [address] Dwight Waters Neutrophils/100 WBC (Bld) 78.0 % Critically high 43.0-75.0 [facility] Comment on above: Performed By: #### C BC #### [facility] [address] [place] [address] Dr. Dwight Waters Platelet mean volume (Bld) [Entitic vol] 9.8 fL Normal 9.5-13.5 [facility] Comment on above: Performed By: #### C BC #### [facility] [address] [address] [address] Dwight Waters PLT 251 103/ul Normal 150-450 [facility] Comment on above: Performed By: #### C BC #### [facility] [address] [place] [address] Dr. Dwight Waters RBC 5.04 106/ul Normal 4.70-6.10 [facility] Comment on above: Performed By: #### C BC #### [facility] [address] [place] [address] Dr. Dwight Waters WBC 11.6 103/ul Critically high 4.0-11.0 [facility] Comment on above: Performed By: #### C BC #### [facility] [address] [place] [address] Dr. Dwight Waters CHEM 6 (LYTES, BUN CREA)on 0 05-15-2022 Anion gap [Moles/Vol] 12 mmol/L 7 - 17 mmol/L [facility] Chloride [Moles/Vol] 105 mmol/L 98 - 10 8 mmol/L [facility] CO2 [Moles/Vol] 26 mmol/L 21 - 31 mmol/L [facility] Creatinine [Mass/Vol] 2.85 mg/dL High 0.70 - 1.30 mg/dL [facility] GFR/1.73 sq M.predicted CKD-EPI (S/P/Bld) [Vol rate/Area] 26 Low >=60 mL/min/1.73m2 [facility] Comment on above: Reported eGFR is bas ed on the CKD-EPI 2020 equation using creatinine, age, and sex. Potassium [Moles/Vol] 4.6 mmol/L 3.5 - 5.0 mmol/L [facility] Sodium [Moles/Vol] 138 mmol/L 135 - 145 mmol/L [facility] Urea nitrogen [Mass/Vol] 32 mg/dL High 7 - 25 mg/[facility] Urea nitrogen/Creatinine [Mass ratio] 11 mg/[facility] ABD/PELVIS WO CONon 05-15 CT ABD/PELVIS WO CON EXAM: CT ABD/PELVIS WO CON 05/15/2022 1:50 AM EDT OH001 CLINICAL STATEMENT: CALCULUS OF KIDNEY COMPARISON: 05/11/2022 TECHNIQUE: Helically acquired images were obtained of the abdomen and pelvis without IV contrast. No oral contrast was administered. AEC is utilized. 2-D reconstructed images are provided. FINDINGS: There is a 6 mm right ureterovesicular junction calculus with moderate right-sided hydronephrosis and hydroureter. 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 Atrophic [place] kidneys with moderate right-sided hydronephrosis. Multiple nonobstructive right renal calculi measuring up to 8 mm. Cholecystectomy. Enlarged gastric varices. The upper abdominal solid organs are unremarkable. There is no bowel obstruction or free air. There is no ascites. There is no evidence of aortic aneurysm. Atherosclerotic aortoiliac calcifications. There is no retroperitoneal adenopathy. There is no appendicitis or diverticulitis. There are no pelvic masses or loculated fluid collections. The lung bases are clear. Multilevel degenerative changes lumbosacral spine. There are no destructive bone lesions identified. IMPRESSION: 6 mm right ureterovesicular junction calculus with moderate right-sided hydronephrosis and hydroureter. 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 Atrophic [place] kidneys with moderate right-sided hydronephrosis. Multiple nonobstructive right renal calculi measuring up to 8 mm. FOLLOW-UP: Follow-up as clinically indicated. Electronically authenticated by: LYNDSAY JEAN Date: 2022-05-15 05:04 Normal [facility] Covid-19 PCR (CVDTB)on 04-30 SARS-CoV-2 (COVID-19) RNA ESTELITA+probe Ql (Unsp spec) Not detected Normal NOT DETECTED [facility] Comment on above: Result Comment: When diagnostic testing is negative, the possibility of a false negative should be considered in the context of a patient's recent exposures and the presence of clinical signs and symptoms consistent with SARS-CoV-2. This test is not yet approved or cleared by the [place] FDA. When there are no FDA-approved or cleared tests available, and other criteria are met, FDA can make tests available under an emergency access mechanism called an Emergency Use Authorization (EUA). The EUA for this test is supported by the [place] of Health and Human Service's declaration that circumstances exist to justify the emergency use of in vitro diagnostics for the detection and/or diagnosis of the virus that causes COVID-19. This EUA will remain in effect for the duration of the COVID-19 declaration justifying emergency of IVDs, unless it is terminated or revoked by the FDA (after which the test may no longer be used). Performed By: #### U RTPCR #### [facility] [address] [address] [address] Dwight Waters GLUCOSEon 05-15-2022 Glucose [Mass/Vol] 141 mg/dL High 70 - 99 mg/dL [facility] GOLD TOP TUBEon 05-15-2022 [facility] HEPATIC FUNCTION PANELon Albumin [Mass/Vol] 4.3 g/dL 3.5 - 5.0 g/dL [facility] ALP [Catalytic activity/Vol] 85 U/L 32 - 126 U/L [facility] ALT [Catalytic activity/Vol] 13 U/L 10 - 52 U/L [facility] AST [Catalytic activity/Vol] 15 U/L 10 - 39 U/L [facility] Bilirubin [Mass/Vol] 0.8 mg/dL <1.5 [facility] Bilirubin.direct [Mass/Vol] 0.2 mg/dL <0.3 [facility] Interpretation and review of laboratory results Normal [facility] Protein [Mass/Vol] 7.3 g/dL 6.4 - 8.3 g/dL [facility] LIPASEon 05-15-2022 Lipase [Catalytic activity/Vol] 8 U/L Low 11 - 82 U/L [facility] No Panel Informationon 05-15 Interpretation and review of laboratory results Abnormal [facility] PROF 14(COMP METB)on 022 Albumin [Mass/Vol] 3.8 g/dL Normal 3.4-5.0 [facility] Comment on above: Performed By: #### U RTPCR #### [facility] [address] [place] [address] Dr. Dwight Waters Albumin/Globulin [Mass ratio] 1.1 {ratio} Normal [facility] Comment on above: Performed By: #### U RTPCR #### [facility] [address] [place] [address] Dr. Dwight Waters ALP [Catalytic activity/Vol] 92 U/L Normal 46-116 [facility] Comment on above: Performed By: #### U RTPCR #### [facility] [address] [place] [address] Dr. Dwight Waters ALT [Catalytic activity/Vol] 25 U/L Normal 16-63 [facility] Comment on above: Performed By: #### U RTPCR #### [facility] [address] [place] [address] Dr. Dwight Waters Anion gap [Moles/Vol] 14.6 mmol/L Normal [facility] Comment on above: Performed By: #### U RTPCR #### [facility] [address] [address] [address] Dwight Waters AST [Catalytic activity/Vol] 17 U/L Normal 15-37 [facility] Comment on above: Performed By: #### U RTPCR #### [facility] [address] [address] [address] Dwight Waters Bilirubin [Mass/Vol] 0.6 mg/dL Normal 0.2-1.0 [facility] Comment on above: Performed By: #### U RTPCR #### [facility] [address] [address] [address] Dwight Waters Calcium [Mass/Vol] 9.9 mg/dL Normal 8.5-10.1 [facility] Comment on above: Performed By: #### U RTPCR #### [facility] [address] [address] [address] Dwight Waters Chloride [Moles/Vol] 106 mmol/L Normal 98-107 [facility] Comment on above: Performed By: #### U RTPCR #### [facility] [address] [address] [address] Dwight Waters CO2 [Moles/Vol] 24.2 mmol/L Normal 21.0-32.0 [facility] Comment on above: Performed By: #### U RTPCR #### [facility] [address] [address] [address] Dwight Waters Creatinine [Mass/Vol] 1.58 mg/dL Critically high 0.70-1.30 [facility] Comment on above: Performed By: #### U RTPCR #### [facility] [address] [address] [address] Dwight Waters EGFR-AF DANISH 56 mL/min/1.73m2 Critically low >=60 [facility] Comment on above: Performed By: #### U RTPCR #### [facility] [address] [address] [address] Dwight Waters EGFR-NON AF DANISH 46 mL/min/1.73m2 Critically low >=60 [facility] Comment on above: Performed By: #### U RTPCR #### [facility] [address] [address] [address] Dwight Waters Globulin (S) [Mass/Vol] 3.5 g/dL Normal [facility] Comment on above: Performed By: #### U RTPCR #### [facility] [address] [address] [address] Dwight Waters Glucose [Mass/Vol] 162 mg/dL Critically high 74-106 [facility] Comment on above: Performed By: #### U RTPCR #### [facility] [address] [address] [address] Dwight Waters Potassium [Moles/Vol] 3.8 mmol/L Normal 3.5-5.1 [facility] Comment on above: Performed By: #### U RTPCR #### [facility] [address] [address] [address] Dwight Waters Protein [Mass/Vol] 7.3 g/dL Normal 6.4-8.2 [facility] Comment on above: Performed By: #### U RTPCR #### [facility] [address] [address] [address] Dwight Waters Sodium [Moles/Vol] 141 mmol/L Normal 136-145 [facility] Comment on above: Performed By: #### U RTPCR #### [facility] [address] [address] [address] Dwight Waters Urea nitrogen [Mass/Vol] 22.0 mg/dL Critically high 7.0-18.0 [facility] Comment on above: Performed By: #### U RTPCR #### [facility] [address] [address] [address] Dwight Waters Urea nitrogen/Creatinine [Mass ratio] 13.9 mg/mg Normal [facility] Comment on above: Performed By: #### U RTPCR #### [facility] [address] [place] [address] Dr. Dwight Waters Portable XR Chest Viewson IMPRESSION: No acute cardiopulmonary disease OLOGY EXAM: XR CHEST PORTABLE, 05/15/2022 22:52 PM COMPARISON: May 09, 2020 CLINICAL INDICATIONS: productive cough RELEVANT CLINICAL HISTORY: FINDINGS: (Adequate technique) Implanted Devices: None Thorax: No acute findings in the chest. RADIOLOGY Vladislav Omer MD - 05/15/2022 EXAM: XR CHEST PORTABLE, 05/15/2022 22:52 PM COMPARISON: May 09, 2020 CLINICAL INDICATIONS: productive cough RELEVANT CLINICAL HISTORY: FINDINGS: (Adequate technique) Implanted Devices: None Thorax: No acute findings in the chest. IMPRESSION IMPRESSION: No acute cardiopulmonary disease [facility] Radiology Study observation (narrative) [facility] Portable XR Chest ViewsOrder ed By: Vladislav Omer on 05-15-2022 [facility] URINE DIPSTICK; REFLEX MICRO SCOPY; REFLEX CULTURE PERFORMABLEon 05-15-2022 Appearance (U) Clear Clear [facility] Color (U) Yellow Yellow [facility] Glucose Test strip (U) [Mass/Vol] 100 mg/dL Abnormal Negative [facility] Interpretation and review of laboratory results Abnormal [facility] Ketones (U) [Mass/Vol] Negative Negative [facility] Leukocyte esterase Test strip Ql (U) Large Abnormal Negative [facility] Nitrite Ql (U) Negative Negative [facility] pH (U) 6.0 [pH] 5.0 - 7.[address] [facility] Protein (U) [Mass/Vol] 100 mg/dL Abnormal Negative [facility] RBC (U) [#/Vol] Large Abnormal Negative [facility] Specific gravity (U) [Rel density] 1.010 [facility] Urobilinogen (U) [Mass/Vol] 0.2 E.U./dL 0.2 E.U/dL, 1.0 E.U/dL [facility] URINE MICROSCOPIC WITH REFLE X TO CULTUREOrdered By: Rey Bro on 06-16-2022 Bacteria LM Ql (Urine sed) ABSENT ABSENT [facility] Epithelial cells.squamous LM Ql (Urine sed) ABSENT 1/hpf = 1+, 2-5/hpf = 2+, 0/hpf = 0+, ABSENT [facility] Interpretation and review of laboratory results Abnormal [facility] RBC LM.HPF (Urine sed) [#/Area] /[HPF] Abnormal 0 - 2 /HPF [facility] WBC LM.HPF (Urine sed) [#/Area] 10-20 Abnormal 0 - 5 /HPF [facility] CT ABD/PELVIS WO CONon 05-12 CT ABD/PELVIS WO CON Begin Addendum #[address] Lund 3:25 PM EST 05/11/2022. Begin Addendum #2 IMPRESSION below should also contain the followin. 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 The configuration has not changed significantly, and prior acute inflammatory changes surrounding the liver transplant have resolved. Correlate clinically. Original Report CT ABD/PELVIS WO CON CLINICAL: Calculus of kidney. Hematuria. History of kidney stones. Renal transplant March 2020. COMPARISON: 06/14/2020 and 01/18/2020 TECHNIQUE: High-resolution axial images were obtained from diaphragms to pubic symphysis. Dose reduction: mA and/or kV are were adjusted by automated exposure control software based upon patients height and weight. FINDINGS: Lung bases are unremarkable. The liver shows no space-occupying lesion within limits of noncontrast technique. Surgical clips are present at the hepatic capsular margins and in the gallbladder fossa. No CT evidence of biliary obstruction. The spleen, pancreas and adrenals are stable. The [place] kidneys are progressively atrophic bilaterally compared to the prior study. There are calculi of up to 6 mm in the right renal sinus, with right renal hilar calcifications likely vascular. There is a right renal graft present in the right iliac fossa, with a 6 mm calcific density present at the level of the lower right graft renal sinus which was not present on the prior post transplant CT of 06/14/2020, best seen on coronal series 5 image 50, as compared to prior series 5 image 41 on the 06/14/2020 CT. This appears to be at the level of the graft ureteropelvic junction. No evidence of graft hydronephrosis, in comparison to the prior CT of 06/14/2020. No evidence of perigraft induration or fluid. Note is made that 2 tiny punctate calculi within the graft on the study of 06/14/2020 are no longer present. The [place] distal right ureter is decompressed beyond this point, and no calcification is seen within the urinary bladder. No definite ureteroneocystostomy is seen along the superior or right side of the urinary bladder, and graft ureter may be attached via ureteroureterostomy, correlate with clinical and surgical history and urologic consultation. No bowel obstruction, free intraperitoneal air or mesenteric inflammatory process is seen. The appendix is visible and is unremarkable immediately anterior to the right renal graft. No ascites or abdominal adenopathy. Prostate is upper normal in size. Osseous structures show no acute traumatic or osseous destructive lesion. A Schmorl's node at the superior T12 endplate is stable. IMPRESSION: 1. There is a new 6 mm calculus present associated with the right iliac fossa renal graft at the lower renal sinus, level of the graft ureteropelvic junction, which appears to represent a urinary calculus within the renal graft collecting system. This is a new finding compared to 06/04/2020, as detailed above. No noah hydronephrosis of the renal graft is seen, and no perigraft fluid or induration is seen, nonspecific but suggesting this may be incompletely obstructing. Detail is limited in the absence of IV contrast. 2. Correlate with surgical history for renal graft and [place] right urinary drainage, as a discrete ureteroneocystostomy is not identified, and the graft may be draining via a ureteroureterostomy. Urology consultation recommended. 3. The [place] kidneys are bilaterally atrophic, with right renal sinus calcifications consistent with nonobstructing right [place] renal calculi up to 6 mm. Normal [facility] CBC AUTO DIFFon 05-11-2022 BASO # 0.1 103/ul Normal 0.0-0.1 [facility] Comment on above: Performed By: #### U RTPCR #### [facility] [address] [address] [address] Dwight Waters Basophils/100 WBC (Bld) 0.8 % Normal 0.2-2.0 [facility] Comment on above: Performed By: #### U RTPCR #### [facility] [address] [place] [address] Dr. Dwight Waters EO # 0.2 103/ul Normal 0.0-0.7 [facility] Comment on above: Performed By: #### U RTPCR #### [facility] [address] [place] [address] Dr. Dwight Waters Eosinophils/100 WBC (Bld) 2.5 % Normal 0.9-7.0 [facility] Comment on above: Performed By: #### U RTPCR #### [facility] [address] [place] [address] Dr. Dwight Waters Erythrocyte distribution width (RBC) [Ratio] 12.5 % Normal 11.0-15.0 [facility] Comment on above: Performed By: #### U RTPCR #### [facility] [address] [place] [address] Dr. Dwight Waters Hematocrit (Bld) [Volume fraction] 48.3 % Normal 42.0-54.0 [facility] Comment on above: Performed By: #### U RTPCR #### [facility] [address] [place] [address] Dr. Dwight Waters Hemoglobin (Bld) [Mass/Vol] 15.3 g/dL Normal 14.0-18.0 [facility] Comment on above: Performed By: #### U RTPCR #### [facility] [address] [place] [address] Dr. Dwight Waters IG # 0.01 10e3/ul Normal 0.00-0.03 [facility] Comment on above: Performed By: #### U RTPCR #### [facility] [address] [place] [address] Dr. Dwight Waters IG % 0.2 % Normal 0.0-0.5 [facility] Comment on above: Performed By: #### U RTPCR #### [facility] [address] [address] [address] Dwight Waters LYMPH # 1.9 103/ul Normal 1.2-3.8 [facility] Comment on above: Performed By: #### U RTPCR #### [facility] [address] [address] [address] Dwight Waters Lymphocytes/100 WBC (Bld) 29.8 % Normal 20.5-60.0 [facility] Comment on above: Performed By: #### U RTPCR #### [facility] [address] [address] [address] Dwight Waters MANUAL DIFF REQ NO Normal [facility] Comment on above: Performed By: #### U RTPCR #### [facility] [address] [place] [address] Dr. Dwight aWters MCH (RBC) [Entitic mass] 28.2 pg Normal 25.9-34.0 [facility] Comment on above: Performed By: #### U RTPCR #### [facility] [address] [place] [address] Dr. Dwight Waters MCHC (RBC) [Mass/Vol] 31.7 g/dL Normal 29.9-35.2 [facility] Comment on above: Performed By: #### U RTPCR #### [facility] [address] [place] [address] Dr. Dwgiht Waters MCV (RBC) [Entitic vol] 89.1 fL Normal 80.0-94.0 [facility] Comment on above: Performed By: #### U RTPCR #### [facility] [address] [place] [address] Dr. Dwight Waters MONO # 0.6 103/ul Normal 0.3-0.8 The [facility] Comment on above: Performed By: #### U RTPCR #### [facility] [address] [place] [address] Dr. Dwight Waters Monocytes/100 WBC (Bld) 9.0 % Normal 1.7-12.0 [facility] Comment on above: Performed By: #### U RTPCR #### [facility] [address] [place] [address] Dr. Dwight Waters NEUT # 3.6 103/ul Normal 1.4-6.5 The [facility] Comment on above: Performed By: #### U RTPCR #### [facility] [address] [place] [address] Dr. Dwight Waters Neutrophils/100 WBC (Bld) 57.7 % Normal 43.0-75.0 [facility] Comment on above: Performed By: #### U RTPCR #### [facility] [address] [place] [address] Dr. Dwight Waters Platelet mean volume (Bld) [Entitic vol] 9.9 fL Normal 9.5-13.5 [facility] Comment on above: Performed By: #### U RTPCR #### [facility] [address] [place] [address] Dr. Diwght Waters PLT 249 103/ul Normal 150-450 [facility] Comment on above: Performed By: #### U RTPCR #### [facility] [address] [place] [address] Dr. Dwight Waters RBC 5.42 106/ul Normal 4.70-6.10 [facility] Comment on above: Performed By: #### U RTPCR #### [facility] [address] [place] [address] Dr. Dwight Waters WBC 6.3 103/ul Normal 4.0-11.0 [facility] Comment on above: Performed By: #### U RTPCR #### [facility] [address] [place] [address] Dr. Dwight Waters ER URINE PROFILEon 2 Bilirubin Ql (U) Unable to perform testing due to color interference. Abnormal NEGATIVE The [facility] Comment on above: Performed By: #### U RTPCR #### [facility] [address] [place] [address] Dr. Dwight Waters Clarity (U) TURBID Abnormal CLEAR [facility] Comment on above: Performed By: #### U RTPCR #### [facility] [address] [place] [address] Dr. Dwight Waters Color (U) RED Abnormal YELLOW The [facility] Comment on above: Performed By: #### U RTPCR #### [facility] [address] [place] [address] Dr. Dwight Waters ERUAHJenna A micrscopic examination will be performed if indicated. Normal The [facility] Comment on above: Performed By: #### U RTPCR #### [facility] [address] [place] [address] Dr. Dwight Waters Glucose Ql (U) Unable to perform testing due to color interference. Abnormal NEGATIVE [facility] Comment on above: Performed By: #### U RTPCR #### [facility] [address] [place] [address] Dr. Dwight Waters Hemoglobin Ql (U) Unable to perform testing due to color interference. Abnormal NEGATIVE [facility] Comment on above: Performed By: #### U RTPCR #### [facility] [address] [place] [address] Dr. Dwight Waters Ketones Ql (U) Unable to perform testing due to color interference. Abnormal NEGATIVE [facility] Comment on above: Performed By: #### U RTPCR #### [facility] [address] [place] [address] Dr. Dwight Waters LEUKOCYTES Unable to perform testing due to color interference. Abnormal NEGATIVE [facility] Comment on above: Performed By: #### U RTPCR #### [facility] [address] [place] [address] Dr. Dwight Waters Nitrite Ql (U) Unable to perform testing due to color interference. Abnormal NEGATIVE [facility] Comment on above: Performed By: #### U RTPCR #### [facility] [address] [place] [address] Dr. Dwight Waters pH (U) 6.5 [pH] Normal 5-9 [facility] Comment on above: Performed By: #### U RTPCR #### [facility] [address] [place] [address] Dr. Dwight Waters SPEC GRAVITY 1.020 Normal 1.005-<=1.025 The [facility] Comment on above: Performed By: #### U RTPCR #### [facility] [address] [place] [address] Dr. Dwight Waters UA PROTEIN Unable to perform testing due to color interference. Normal NEGATIVE/ TRACE [facility] Comment on above: Performed By: #### U RTPCR #### [facility] [address] [place] [address] Dr. Dwight Waters UR MICRO IND INDICATED Normal [facility] Comment on above: Performed By: #### U RTPCR #### [facility] [address] [place] [address] Dr. Dwight Waters UROBILINOGEN Unable to perform testing due to color interference. Normal 0.2 - 1.0 [facility] Comment on above: Performed By: #### U RTPCR #### [facility] [address] [place] [address] Dr. Dwight Waters PROF 14(COMP METB)on 022 Albumin [Mass/Vol] 3.8 g/dL Normal 3.4-5.0 [facility] Comment on above: Performed By: #### C MP #### [facility] [address] [place] [address] Dr. Dwight Waters Albumin/Globulin [Mass ratio] 1.1 {ratio} Normal [facility] Comment on above: Performed By: #### C MP #### [facility] [address] [place] [address] Dr. Dwight Waters ALP [Catalytic activity/Vol] 106 U/L Normal 46-116 [facility] Comment on above: Performed By: #### C MP #### [facility] [address] [place] [address] Dr. Dwight Waters ALT [Catalytic activity/Vol] 30 U/L Normal 16-63 [facility] Comment on above: Performed By: #### C MP #### [facility] [address] [place] [address] Dr. Dwight Waters Anion gap [Moles/Vol] 11.7 mmol/L Normal [facility] Comment on above: Performed By: #### C MP #### [facility] [address] [address] [address] Dwight Waters AST [Catalytic activity/Vol] 16 U/L Normal 15-37 [facility] Comment on above: Performed By: #### C MP #### [facility] [address] [place] [address] Dr. Dwight Waters Bilirubin [Mass/Vol] 0.6 mg/dL Normal 0.2-1.0 [facility] Comment on above: Performed By: #### C MP #### [facility] [address] [place] [address] Dr. Dwight Waters Calcium [Mass/Vol] 9.1 mg/dL Normal 8.5-10.1 [facility] Comment on above: Performed By: #### C MP #### [facility] [address] [place] [address] Dr. Dwight Waters CO2 [Moles/Vol] 27.4 mmol/L Normal 21.0-32.0 [facility] Comment on above: Performed By: #### C MP #### [facility] [address] [place] [address] Dr. Dwight Waters Creatinine [Mass/Vol] 1.18 mg/dL Normal 0.70-1.30 [facility] Comment on above: Performed By: #### C MP #### [facility] [address] [place] [address] Dr. Dwight Waters EGFR-AF DANISH >60 Normal >=60 [facility] Comment on above: Performed By: #### C MP #### [facility] [address] [place] [address] Dr. Dwight Waters EGFR-NON AF DANISH >60 Normal >=60 [facility] Comment on above: Performed By: #### C MP #### [facility] [address] [place] [address] Dr. Dwight Waters Globulin (S) [Mass/Vol] 3.6 g/dL Normal [facility] Comment on above: Performed By: #### C MP #### [facility] [address] [place] [address] Dr. Dwight Waters Glucose [Mass/Vol] 192 mg/dL Critically high 74-106 T [facility] Comment on above: Performed By: #### C MP #### [facility] [address] [place] [address] Dr. Dwight Waters Potassium [Moles/Vol] 4.1 mmol/L Normal 3.5-5.1 [facility] Comment on above: Performed By: #### C MP #### [facility] [address] [place] [address] Dr. Dwight Waters Protein [Mass/Vol] 7.4 g/dL Normal 6.4-8.2 [facility] Comment on above: Performed By: #### C MP #### [facility] [address] [place] [address] Dr. Dwight Waters Sodium [Moles/Vol] 142 mmol/L Normal 136-145 [facility] Comment on above: Performed By: #### C MP #### [facility] [address] [place] [address] Dr. Dwight Waters Urea nitrogen [Mass/Vol] 17.0 mg/dL Normal 7.0-18.0 [facility] Comment on above: Performed By: #### C MP #### [facility] [address] [place] [address] Dr. Dwight Waters Urea nitrogen/Creatinine [Mass ratio] 14.4 mg/mg Normal [facility] Comment on above: Performed By: #### C MP #### [facility] [address] [place] [address] Dr. Dwight Waters URINE MICROSCOPIC ONLYon BACTERIA NONE SEEN Normal NONE SEEN [facility] Comment on above: Performed By: #### U RTPCR #### [facility] [address] [place] [address] Dr. Dwight Waters Bacteria identified Cx Nom (U) NOT INDICATED Normal [facility] Comment on above: Performed By: #### U RTPCR #### [facility] [address] [place] [address] Dr. Dwight Waters CAST NONE SEEN Normal NONE SEEN [facility] Comment on above: Performed By: #### U RTPCR #### [facility] [address] [address] [address] Dwight Waters Crystals LM Nom (Urine sed) NONE SEEN Normal NONE SEEN [facility] Comment on above: Performed By: #### U RTPCR #### [facility] [address] [place] [address] Dr. Dwight Waters Epithelial cells LM Ql (Urine sed) RARE Normal NONE SEEN /RARE [facility] Comment on above: Performed By: #### U RTPCR #### [facility] [address] [place] [address] Dr. Dwight Waters MUCOUS NONE SEEN Normal NONE SEEN [facility] Comment on above: Performed By: #### U RTPCR #### [facility] [address] [place] [address] Dr. Dwight Waters RBC (U) [#/Vol] /uL Abnormal 0-2 [facility] Comment on above: Performed By: #### U RTPCR #### [facility] [address] [place] [address] Dr. Dwight Waters WBC NONE SEEN Normal NONE SEEN [facility] Comment on above: Performed By: #### U RTPCR #### [facility] [address] [place] [address] Dr. Dwight Waters K (Potassium)on 01-06-2020 Potassium [Moles/Vol] 4.4 mmol/L Normal 3.7-5.3 [facility] Comment on above: Performed By: #### K #### [facility] [address] [place] [address] Barbering Teacher: Kehinde Woodward MD Potassiumon 01-06-2020 Potassium [Moles/Vol] 4.4 mmol/L 3.7 - 5.3 mmol/L [facility] Work Phone: Hemoglobin and Hematocrit, B lojania 10-24-2019 Hematocrit (Bld) [Volume fraction] 23.6 % Low 40.7 - 50.3 % [facility] [place] Hemoglobin (Bld) [Mass/Vol] 7.3 g/dL Low 13 - 17 g/[place] Interpretation and review of laboratory results Abnormal [place], [place] Hgb/Hcton 10-24-2019 Hematocrit (Bld) [Volume fraction] 23.6 % Low 40.7-50.3 [facility] Comment on above: Performed By: #### H H #### [facility] [address] [place] [address] Barbering Teacher: Kehinde Woodward MD Hemoglobin (Bld) [Mass/Vol] 7.3 g/dL Low 13.0-17.0 [facility] Comment on above: Performed By: #### H H #### [facility] [address] [place] [address] Barbering Teacher: Kehinde Woodward MD Hemoglobinon 08-27-2019 Hemoglobin (Bld) [Mass/Vol] 7.5 g/dL Low 13.0-17.0 [facility] Comment on above: Performed By: #### H GB #### [facility] [address] [place] [address] Barbering Teacher: Kehinde Woodward MD Hemoglobin (Bld) [Mass/Vol] 7.5 g/dL Low 13 - 17 g/dL [place], [place] Interpretation and review of laboratory results Abnormal [place], [place] Hemoglobinon 08-08-2019 Hemoglobin (Bld) [Mass/Vol] 8.3 g/dL Low 13.0-17.0 [facility] Comment on above: Performed By: #### H GB #### [facility] [address] [place] [address] Barbering Teacher: Kehinde Woodward MD Hemoglobin (Bld) [Mass/Vol] 8.3 g/dL Low 13 - 17 g/dL [place], [place] Interpretation and review of laboratory results Abnormal [place], [place] Hemoglobinon 08-04-2019 Hemoglobin (Bld) [Mass/Vol] 8.0 g/dL Low 13.0-17.0 [facility] Comment on above: Performed By: #### H GB #### [facility] [address] [place], [place] [address] Barbering Teacher: Kehinde Woodward MD Hemoglobin A1Con 08-03-2019 HbA1c (Bld) [Mass fraction] % Low 4.8-5.9 [facility] Comment on above: Result Comment: The ADA and AACC recommend providing the estimated average glucose result to permit better patient understanding of their HBA1c result. Performed By: #### G LYHGB #### [facility] [address] [place] [address] Barbering Teacher: Kehinde Woodward MD Glucose [Mass/Vol] mg/dL mg/dL [place], [place] Comment on above: The ADA and AACC rec ommend providing the estimated average glucose result to permit better patient understanding of their HBA1c result. HbA1c (Bld) [Mass fraction] % Low 4.8 - 5.9 % [place], [place] Interpretation and review of laboratory results Abnormal [place], [place] Hemoglobinon 08-01-2019 Hemoglobin (Bld) [Mass/Vol] 8.1 g/dL Low 13.0-17.0 [facility] Comment on above: Performed By: #### H GB #### [facility] [address] [place] [address] Barbering Teacher: Kehinde Woodward MD Hemoglobin (Bld) [Mass/Vol] 8.1 g/dL Low 13 - 17 g/dL [place], [place] Interpretation and review of laboratory results Abnormal [place], [place] Hgb/Hcton 06-10-2019 Hematocrit (Bld) [Volume fraction] 24.3 % Low 40.7-50.3 [facility] Comment on above: Performed By: #### H H #### [facility] [address] [place] [address] Barbering Teacher: Kehinde Woodward MD Hemoglobin (Bld) [Mass/Vol] 7.4 g/dL Low 13.0-17.0 [facility] Comment on above: Performed By: #### H H #### [facility] [address] [place] [address] Barbering Teacher: Kehinde Woodward MD Hemoglobinon 06-01-2019 Hemoglobin (Bld) [Mass/Vol] 7.2 g/dL Low 13.0-17.0 [facility] Comment on above: Performed By: #### H GB #### [facility] [address] [place] [id number] Barbering Teacher: Kehinde Woodward MD K (Potassium)on 01-14-2019 Potassium [Moles/Vol] 3.6 mmol/L Low 3.7-5.3 [facility] Comment on above: Performed By: #### K #### [facility] [address] [place], [place] [id number] Barbering Teacher: Kehinde Woodward MD Otheron 10-19-2018 IMPRESSION: 1. Cirrhotic morphology of the liver. No focal lesion in the hepatic parenchyma. 2. Flow reversal in the main portal vein with diminished flow velocity. This is suggestive of portal hypertension. 3. Trace perihepatic ascites. 4. Cholelithiasis. No imaging evidence of acute cholecystitis. 5. Increased echogenicity of the right kidney. This may represent medical renal disease. Please correlate with renal function tests. Invalid Interpretation Code RADIOLOGY EXAM: US ABDOMEN RUQ/LIVER/GB, 10/19/2018 07:35 AM CLINICAL INDICATIONS: screen for HCC Screening for HCC; K74.60:Cirrhosis of liver with ascites, unspecified hepatic cirrhosis type R18.8:Cirrhosis of liver with ascites, unspecified hepatic cirrhosis type COMPARISON: None. TECHNIQUE: Real-time ultrasound evaluation of the right upper quadrant was performed utilizing a curved array transducer. Duplex scan is performed. Color flow images and spectral waveforms obtained. FINDINGS: Pancreas: The visualized pancreas is sonographically normal in appearance. Liver: Liver is coarse in echotexture with nodular contour. Morphology is concerning for cirrhosis. There is no focal lesion in the hepatic parenchyma. No intrahepatic biliary dilatation. Doppler ultrasound demonstrates in flow direction hepatofugal flow in the main portal vein. Flow velocity is approximately -15 cm/sec which is diminished and reversed. Gall Bladder: The gallbladder is not very well distended. There is diffuse echogenic material filling the gallbladder lumen, some of which demonstrate posterior acoustic shadowing. This is suggestive of multiple gallstones in the gallbladder. No definite evidence of pericholecystic fluid or gallbladder wall thickening. Assessment is limited by lack of distention. The sonographic Roa's sign was reported as negative. The common duct is normal in caliber measuring 6 mm in diameter. Right Kidney: There is mild diffuse increased echogenicity of the right kidney with prominence of the corticomedullary differentiation. Bipolar length is 10.1 cm. There is no hydronephrosis. Ascites: Perihepatic ascites is noted. Invalid Interpretation Code RADIOLOGY User, Interfaces - 10/19/2018 8:41 AM EST EXAM: US ABDOMEN RUQ/LIVER/GB, 10/19/2018 07:35 AM CLINICAL INDICATIONS: screen for HCC Screening for HCC; K74.60:Cirrhosis of liver with ascites, unspecified hepatic cirrhosis type R18.8:Cirrhosis of liver with ascites, unspecified hepatic cirrhosis type COMPARISON: None. TECHNIQUE: Real-time ultrasound evaluation of the right upper quadrant was performed utilizing a curved array transducer. Duplex scan is performed. Color flow images and spectral waveforms obtained. FINDINGS: Pancreas: The visualized pancreas is sonographically normal in appearance. Liver: Liver is coarse in echotexture with nodular contour. Morphology is concerning for cirrhosis. There is no focal lesion in the hepatic parenchyma. No intrahepatic biliary dilatation. Doppler ultrasound demonstrates in flow direction hepatofugal flow in the main portal vein. Flow velocity is approximately -15 cm/sec which is diminished and reversed. Gall Bladder: The gallbladder is not very well distended. There is diffuse echogenic material filling the gallbladder lumen, some of which demonstrate posterior acoustic shadowing. This is suggestive of multiple gallstones in the gallbladder. No definite evidence of pericholecystic fluid or gallbladder wall thickening. Assessment is limited by lack of distention. The sonographic Roa's sign was reported as negative. The common duct is normal in caliber measuring 6 mm in diameter. Right Kidney: There is mild diffuse increased echogenicity of the right kidney with prominence of the corticomedullary differentiation. Bipolar length is 10.1 cm. There is no hydronephrosis. Ascites: Perihepatic ascites is noted. IMPRESSION IMPRESSION: 1. Cirrhotic morphology of the liver. No focal lesion in the hepatic parenchyma. 2. Flow reversal in the main portal vein with diminished flow velocity. This is suggestive of portal hypertension. 3. Trace perihepatic ascites. 4. Cholelithiasis. No imaging evidence of acute cholecystitis. 5. Increased echogenicity of the right kidney. This may represent medical renal disease. Please correlate with renal function tests. Invalid Interpretation Code RADIOLOGY ABO/RH(D) TYPINGon 8 ABO and Rh group Nom (Bld) O POSITIVE Invalid Interpretation Code LAB, [facility] TUMOR MARKERon 8 AFP.tumor marker mass conc 5.5 ng/mL Invalid Interpretation Code <8.5 [facility] ALBUMIN[facility] 10-12-2018 Albumin mass conc 3.0 g/dL Low 3.5 - 5 g/dL [facility] ALCOHOL (ETHANOL),BLOODon Ethanol Ql (Bld) <10 Invalid Interpretation Code <10 mg/dL [facility] Comment on above: For Medical Purposes Only, Non forensic ALP ALT João 10-12-2018 ALP enzyme act/vol 251 U/L High 32 - 126 U/L [facility] ALT enzyme act/vol 21 U/L Invalid Interpretation Code 10 - 52 U/L [facility] AST enzyme act/vol 34 U/L Invalid Interpretation Code 14 - 40 U/L [facility] BILIRUBIN, TOTAL AND DIRECTo n 10-12-2018 Bilirubin mass conc 1.8 mg/dL High <1.5 [facility] Bilirubin.direct mass conc 0.7 mg/dL High <0.3 [facility] CALCIUMon 10-12-2018 Calcium mass conc 9.3 mg/dL Invalid Interpretation Code 8.6 - 10.5 mg/dL [facility] CBC, EDIF, PLATELETon 2017 Basophils Auto #/vol (Bld) 0.06 10*3/uL Invalid Interpretation Code 0 - 0.09 K/uL [facility] Basophils/100 WBC Auto (Bld) 1.1 % Invalid Interpretation Code [facility] Differential cell count method Nom (Bld) Electronic Differential Invalid Interpretation Code [facility] Eosinophils Auto #/vol (Bld) 0.27 10*3/uL Invalid Interpretation Code 0 - 0.48 K/uL [facility] Eosinophils/100 WBC Auto (Bld) 5.0 % Invalid Interpretation Code [facility] Erythrocyte distribution width Auto Ratio (RBC) 15.1 % High 10.9 - 14.3 % [facility] Hematocrit Auto Volume Fraction (Bld) 31.3 % Low 39.6 - 48.8 % [facility] Hemoglobin mass conc (Bld) 10.3 g/dL Low 13.4 - 16.8 g/dL [facility] Immature granulocytes #/vol (Bld) 0.01 10*3/uL Invalid Interpretation Code 0 - 0.07 K/uL [facility] Immature granulocytes/100 WBC (Bld) 0.2 % Invalid Interpretation Code [facility] Lymphocytes Auto #/vol (Bld) 1.67 10*3/uL Invalid Interpretation Code 0.83 - 3.57 K/uL [facility] Lymphocytes/100 WBC Auto (Bld) 30.9 % Invalid Interpretation Code [facility] MCH Auto Entitic mass (RBC) 30.3 pg Invalid Interpretation Code 26.1 - 33.3 pg [facility] MCHC Auto mass conc (RBC) 32.9 g/dL Invalid Interpretation Code 31.9 - 36.5 g/dL [facility] MCV Auto Entitic volume (RBC) 92.1 fL Invalid Interpretation Code 79 - 94.5 fL [facility] Monocytes Auto #/vol (Bld) 0.54 10*3/uL Invalid Interpretation Code 0.24 - 0.93 K/uL [facility] Monocytes/100 WBC Auto (Bld) 10.0 % Invalid Interpretation Code [facility] Neutrophils Manual cnt #/vol (Bld) 2.85 K/uL Invalid Interpretation Code 1.57 - 6.19 K/uL [facility] Nucleated RBC/100 WBC Ratio (Bld) 0.0 % Invalid Interpretation Code [facility] Platelet mean volume Auto Entitic volume (Bld) 10.4 fL Invalid Interpretation Code 8.7 - 12.3 fL [facility] Platelets Auto #/vol (Bld) 101 10*3/uL Low 146 - 337 K/uL [facility] Comment on above: Automated platelet c ount confirmed by manual slide review RBC Auto #/vol (Bld) 3.40 10*6/uL Low LA [facility] Segmented neutrophils/100 WBC Manual cnt (Bld) 52.8 % Invalid Interpretation Code [facility] WBC Auto #/vol (Bld) 5.40 10*3/uL Invalid Interpretation Code 3.73 - 10.1 K/uL [facility] CHEM 7 (LYTES,BUN,CREA,GLUC) on 10-12-2018 Anion gap 3 molar conc 16 mmol/L Invalid Interpretation Code 7 - 17 mmol/L [facility] Chloride molar conc 93 mmol/L Low 98 - 108 mmol/L [facility] CO2 molar conc 24 mmol/L Invalid Interpretation Code 22 - 30 mmol/L [facility] Creatinine mass conc 5.26 mg/dL High 0.7 - 1 .3 mg/dL [facility] GFR/1.73 sq M.predicted MDRD vol rate/area 12 mL/min/{1.73_m2} Low >60 mL/min/1.73sq M [facility] GFR/1.73 sq M.predicted MDRD vol rate/area 14 mL/min/{1.73_m2} Low >60 mL/min/1.73sq M [facility] Glucose mass conc 177 mg/dL High 70 - 99 mg/dL [facility] Osmolality Calculated 285 Invalid Interpretation Code [facility] Potassium molar conc 3.1 mmol/L Low 3.5 - 5 mmol/L [facility] Sodium molar conc 130 mmol/L Low 133 - 143 mmol/L [facility] Urea nitrogen mass conc 34 mg/dL High 7 - 22 mg/dL [facility] Urea nitrogen/Creatinine mass ratio 6 mg/mg Invalid Interpretation Code [facility] CMV IGG ABon 10-12-2018 CMV IgG Ql Negative Invalid Interpretation Code Negative [facility] ETHANOL (ALCOHOL), URINEon 1 12-12-2017 Ethanol Ql (U) NONE DETECTED Invalid Interpretation Code <10 mg/dL [facility] FERRITINon 10-12-2018 Ferritin mass conc 345 ng/mL High 22 - 322 ng/mL [facility] HEMOGLOBIN A1Con 10-12-2018 Average glucose Estimated from glycated hemoglobin mass conc (Bld) 85 mg/dL Invalid Interpretation Code [facility] Hemoglobin A1c/Hemoglobin.total mass fraction (Bld) 4.6 % Low 4.7 - 5.6 % [facility] Interpretation and review of laboratory results Abnormal Invalid Interpretation Code [facility] HEP A AB, TOTAL (IGG+IGM)on 10-12-2018 HAV IgG+IgM Ql (S) Positive Abnormal Negative [facility] HEP B CORE AB,TOTAL(IGG+IGM) on 10-12-2018 HBV core IgG+IgM Ql (S) Negative Invalid Interpretation Code Negative [facility] HEPATITIS B SURFACE ANTIBODY on 10-12-2018 HBV surface Ab IA Ql (S) Negative Invalid Interpretation Code Negative [facility] HEPATITIS B SURFACE ANTIGENo n 10-12-2018 HBV surface Ag Ql (S) Negative Invalid Interpretation Code Negative [facility] HEPATITIS C ANTIBODYon 10-12 HCV Ab Ql (S) Negative Invalid Interpretation Code Negative [facility] HIV 1 AND 2 ANTIBODIESon HIV 1+2 Ab+HIV1 p24 Ag IA Ql NONREACTIVE Invalid Interpretation Code NONREACTIVE [facility] IRON/IRON BINDING/TRANSFERRI Non 10-12-2018 Iron binding capacity mass conc 252 Low [facility] Iron mass conc 150 ug/dL Invalid Interpretation Code [facility] Iron saturation mass fraction 60 % High 20 - 55 % [facility] Transferrin mass conc 169 mg/dL Low 200 - 400 mg/dL [facility] Otheron 10-12-2018 Interpretation and review of laboratory results Abnormal Invalid Interpretation Code [facility] PSA, SCREENINGon 10-12-2018 Prostate specific Ag mass conc 0.36 ng/mL Invalid Interpretation Code <4.00 [facility] PT,INR,PTTon 10-12-2018 aPTT Coag time (Bld) 44.0 s High [facility] INR Coag RelTime (Bld) 1.7 {INR} High [facility] Prothrombin time (PT) Coag time (PPP) 19.7 s High [facility] TOXICOLOGY DRUG SCREEN, SERU 10-12-2018 Drugs of abuse panel - Blood by Screen method For Medical Purposes Only, Non-forensic, screen results are presumptive. No confirmatory testing will follow. Invalid Interpretation Code [facility] Comment on above: This Liquid Chromato graphy Mass Spectrometry (LC/MS/MS) test was developed and its performance characteristics determined by [facility] at [facility]. It has not been cleared or approved by the FDA. The laboratory is regulated under CLIA as qualified to perform high-complexity testing. This test is used for clinical purposes. It should not be regarded as investigational or for research. The following drugs with their lowest level of detection in ng/ml(LOD) are included in this screen: 6 Monoacetylmorphine(300), 7 Aminoflunitrazepam(25), 7 Aminoclonazepam(50), Alphahydroxytriazolam(400), Alphahydrozyalprazolam(200), Alprazolam(50), Amitriptyline(50), Amphetamine(250), Atenolol(500), Barbiturates(1000), Benzoylecgonine(50), Buprenorphine(50), Bupropion(25), Caffeine(91583), Chlordiazepoxide(50), Chlorpheniramine(100), Chlorpromazine(50), Citalopram(100), Clonazepam(200), Cocaine(25), Codeine(200), Cotinine(500), Desakylflurazepam(50), Desipramine(50), Desmethyldoxepin(100), Dextromethorphan(100), Diazepam(100), Dihydrocodeine(100), Diltazem(50), Diphenhydramine(100), Doxepin(100), EDDP/methadone(100), Ephedrine/Pseudoephedrine(100), Fentanyl(25), Flunitrazepam(100), Fluoxetine(200), Flurazepam(50), Gabapentin(1500), Haloperidol(25), Hydrocodone(100), Hydromorphone(200), Imipramine(50), Ketamine(25), Lidocaine(25), Lorazepam(100), Lysergide(LSD)(25), Maprotiline(200), MDA(250), MDMA(250), Meperidine(50), Methadone(50), Methamphetamine(500), Methylphenidate(50), Metoprolol(50), Morphine(200), Nalbuphine(50), Naloxone(200), Norbuprenorphine(300), Nordiazepam(100), Norfentanyl(100), Norpropoxyphene(50), Nortriptyline(50), Olanzapine(200), Oxazepam(200), Oxycodone(100), Oxymorphone(200), Phencyclidine(PCP)(25), Pheniramine(25), Pregabalin(1500), Promethazine(50), Propoxyphene(100), Propanolol(50) Quetiapine(25), Quinidine(500), Ranitidine(500), Risperidone(100), Sertraline(50), Temazepam(100), Thioridazine(100), Tramadol(50), Trazodone(25, Triazolam(100), Venlafaxine(50), Verapamil(100), Zolpidem(200) Drugs of abuse panel - Blood by Screen method NONE DETECTED Invalid Interpretation Code [facility] TOXICOLOGY SCREEN URINE - UD [facility] 10-12-2018 Drugs identified Screen Nom (U) For Medical Purposes Only, Non-forensic, screen results are presumptive. No confirmatory testing will follow. Invalid Interpretation Code [facility] Comment on above: This Liquid Chromato graphy Mass Spectrometry (LC/MS/MS) test was developed and its performance characteristics determined by T[facility] at [facility]. It has not been cleared or approved by the FDA. The laboratory is regulated under CLIA as qualified to perform high-complexity testing. This test is used for clinical purposes. It should not be regarded as investigational or for research. The following drugs with their lowest level of detection in ng/ml(LOD) are included in this screen: 6 Monoacetylmorphine(300), 7 Aminoflunitrazepam(25), 7 Aminoclonazepam(50), Alphahydroxytriazolam(400), Alphahydrozyalprazolam(200), Alprazolam(50), Amitriptyline(50), Amphetamine(250), Atenolol(500), Barbiturates(200), Benzoylecgonine(50), Buprenorphine(500), Bupropion(25), Caffeine(51456), Cannabinoids(THC)(50), Chlordiazepoxide(50), Chlorpheniramine(100), Chlorpromazine(50), Citalopram(100), Clonazepam(200), Cocaine(25), Codeine(200), Cotinine(500), Desakylflurazepam(50), Desipramine(50), Desmethyldoxepin(100), Dextromethorphan(100), Diazepam(100), Dihydrocodeine(100), Diltazem(50), Diphenhydramine(100), Doxepin(100), EDDP/methadone(100), Ephedrine/Pseudoephedrine(100), Fentanyl(25), Flunitrazepam(100), Fluoxetine(200), Flurazepam(50), Gabapentin(1500), Haloperidol(25), Hydrocodone(100), Hydromorphone(200), Imipramine(50), Ketamine(25), Lidocaine(25), Lorazepam(100), Lysergide(LSD)(25), Maprotiline(200), MDA(250), MDMA(250), Meperidine(50), Methadone(50), Methamphetamine(500), Methylphenidate(50), Metoprolol(50), Morphine(200), Nalbuphine(50), Naloxone(200), Norbuprenorphine(300), Nordiazepam(100), Norfentanyl(100), Norpropoxyphene(50), Nortriptyline(50), Olanzapine(200), Oxazepam(200), Oxycodone(100), Oxymorphone(200), Phencyclidine(PCP)(25), Pheniramine(25), Pregabalin(1500), Promethazine(50), Propoxyphene(100), Propanolol(50) Quetiapine(25), Quinidine(500), Ranitidine(500), Risperidone(100), Sertraline(50), Temazepam(100), Thioridazine(100), Tramadol(50), Trazodone(25, Triazolam(100), Venlafaxine(50), Verapamil(100), Zolpidem(200) Drugs identified Screen Nom (U) LIDOCAINE Invalid Interpretation Code [facility] URINE PROTEIN/CREAT RATIO, 2 4HRon 10-12-2018 Creatinine mass conc (24H U) 72.00 mg/dL Invalid Interpretation Code [facility] Creatinine mass conc (24H U) 0.43 Low [facility] Interpretation and review of laboratory results Abnormal Invalid Interpretation Code [facility] Protein mass/time (24H U) 264 High [facility] Protein Unsp time mass conc (U) 44 mg/dL Invalid Interpretation Code [facility] Protein/Creatinine mass ratio (U) 0.611 Invalid Interpretation Code mg prot/mg crea [facility] VITAMIN D (25-HYDROXY,TOTAL) on 10-12-2018 Vitamin D+Metabolites mass conc 12.8 ng/mL Low 30 - 100 ng/mL [facility] Comment on above: <10 Deficiency 10-29 Insufficiency 30-100 Optimal Level >100 Possible Toxicity VOLUME MEASUREDon 10-12-2018 INTERVAL 24 Invalid Interpretation Code hrs [facility] Specimen volume (U) 600 mL Invalid Interpretation Code 0 - 6000 mL [facility] Vital Signs Date Time Vital Sign Value Performing Clinician Facility 09-11-2023 10:31-0400 Body temperature 97.81 [degF] Steve Farrari MBBS Work Phone: [facility] 09-11-2023 10:31-0400 Diastolic blood pressure 66 mm[Hg] Steve Yeison MBBS Work Phone: [facility] 09-11-2023 10:31-0400 Heart rate 70 /min Steve Yeison MBBS Work Phone: [facility] 09-11-2023 10:31-0400 Respiratory rate 20 /min Steve Yeison MBBS Work Phone: [facility] 09-11-2023 10:31-0400 SaO2% (BldA) [Mass fraction] 91 % Steve Yeison MBBS Work Phone: [facility] 09-11-2023 10:31-0400 Systolic blood pressure 129 mm[Hg] Steve Yeison MBBS Work Phone: [facility] 09-10-2023 15:50-0400 Body mass index (BMI) [Ratio] 31.99 kg/m2 Steve Yeison MBBS Work Phone: [facility] 09-10-2023 15:50-0400 Body weight 92.67 kg Steve Yeison MBBS Work Phone: [facility] 09-02-2023 07:32-0400 Body height 170.2 cm Steve Yeison MBBS Work Phone: [facility] 08-28-2023 13:33-0400 Body height 170.2 cm Steve Yeison MBBS Work Phone: [facility] 08-28-2023 13:33-0400 Body mass index (BMI) [Ratio] 32.12 kg/m2 Steve Yeison MBBS Work Phone: [facility] 08-28-2023 13:33-0400 Body temperature 97.3 [degF] Steve Yeison MBBS Work Phone: [facility] 08-28-2023 13:33-0400 Body weight 93.03 kg Steve Yeison MBBS Work Phone: [facility] 08-28-2023 13:33-0400 Diastolic blood pressure 41 mm[Hg] Steve Yeison MBBS Work Phone: [facility] 08-28-2023 13:33-0400 Heart rate 116 /min Steve Yeison MBBS Work Phone: [facility] 08-28-2023 13:33-0400 Systolic blood pressure 106 mm[Hg] Steve Yeison MBBS Work Phone: [facility] 06-12-2023 14:50-0400 Body mass index (BMI) [Ratio] 33.8 kg/m2 Rebeca Olsen BODY DESIGN CHECKER-[employer]IFE INSURANCE SPECIALIST Work Phone: [facility] 06-12-2023 14:50-0400 Body temperature 97.3 [degF] Rebeca Olsen BODY DESIGN CHECKER-LIFE INSURANCE SPECIALIST Work Phone: [facility] 06-12-2023 14:50-0400 Body weight 97.89 kg Rebeca Olsen BODY DESIGN CHECKER-LIFE INSURANCE SPECIALIST Work Phone: [facility] 06-12-2023 14:50-0400 Diastolic blood pressure 77 mm[Hg] Rebeca Olsen BODY DESIGN CHECKER-LIFE INSURANCE SPECIALIST Work Phone: [facility] 06-12-2023 14:50-0400 Heart rate 76 /min Rebeca Olsen BODY DESIGN CHECKER-LIFE INSURANCE SPECIALIST Work Phone: [facility] 06-12-2023 14:50-0400 Systolic blood pressure 146 mm[Hg] Rebeca Olsen BODY DESIGN CHECKER-LIFE INSURANCE SPECIALIST Work Phone: [facility] 01-16-2023 08:57-0500 Body height 170.2 cm [facility] Work Phone: [facility] 01-16-2023 08:57-0500 Body mass index (BMI) [Ratio] 33.66 kg/m2 [facility] Work Phone: [facility] 01-16-2023 08:57-0500 Body temperature 97.3 [degF] [facility] Work Phone: [facility] 01-16-2023 08:57-0500 Body weight 97.48 kg [facility] 3 Work Phone: [facility] 01-16-2023 08:57-0500 Diastolic blood pressure 75 mm[Hg] [facility] Work Phone: [facility] 01-16-2023 08:57-0500 Heart rate 76 /min [facility] 3 Work Phone: [facility] 01-16-2023 08:57-0500 Systolic blood pressure 142 mm[Hg] [facility] Work Phone: [facility] 09-10-2022 09:38-0400 Body height 170.2 cm Ryan Yepez MD Work Phone: [facility] 09-10-2022 09:38-0400 Body mass index (BMI) [Ratio] 33.67 kg/m2 Ryan Yepez MD Work Phone: [facility] 09-10-2022 09:38-0400 Body weight 97.52 kg Ryan Yepez MD Work Phone: [facility] 09-10-2022 09:38-0400 Diastolic blood pressure 83 mm[Hg] Ryan Yepez MD Work Phone: [facility] 09-10-2022 09:38-0400 Heart rate 64 /min Ryan Yepez MD Work Phone: [facility] 09-10-2022 09:38-0400 SaO2% (BldA) [Mass fraction] 96 % Ryan Yepez MD Work Phone: [facility] 09-10-2022 09:38-0400 Systolic blood pressure 129 mm[Hg] Ryan Yepez MD Work Phone: [facility] 07-07-2022 13:48-0400 Diastolic blood pressure 76 mm[Hg] Ryan Yepez MD Work Phone: [facility] 07-07-2022 13:48-0400 Heart rate 82 /min Ryan Yepez MD Work Phone: [facility] 07-07-2022 13:48-0400 SaO2% (BldA) [Mass fraction] 96 % Ryan Yepez MD Work Phone: [facility] 07-07-2022 13:48-0400 Systolic blood pressure 141 mm[Hg] Ryan Yepez MD Work Phone: [facility] 06-27-2022 13:32-0400 Body height 170.2 cm Ryan Yepez MD Work Phone: [facility] 06-27-2022 13:32-0400 Body mass index (BMI) [Ratio] 34.24 kg/m2 Ryan Yepez MD Work Phone: [facility] 06-27-2022 13:32-0400 Body temperature 98.6 [degF] Ryan Yepez MD Work Phone: [facility] 06-27-2022 13:32-0400 Body weight 99.16 kg Ryan Yepez MD Work Phone: [facility] 06-27-2022 13:32-0400 Diastolic blood pressure 78 mm[Hg] Ryan Yepez MD Work Phone: [facility] 06-27-2022 13:32-0400 Heart rate 77 /min Ryan Yepez MD Work Phone: [facility] 06-27-2022 13:32-0400 SaO2% (BldA) [Mass fraction] 95 % Ryan Yepez MD Work Phone: [facility] 06-27-2022 13:32-0400 Systolic blood pressure 121 mm[Hg] Ryan Yepez MD Work Phone: [facility] 06-27-2022 10:52-0400 Body height 170.2 cm Rena Brewster RN [facility] 06-27-2022 10:52-0400 Body mass index (BMI) [Ratio] 34.46 kg/m2 Rena Brewster RN [facility] 06-27-2022 10:52-0400 Body temperature 98.2 [degF] Rena Brewster RN [facility] 07-29-2022 10:52-0400 Body weight 99.79 kg Rena Brewster RN [facility] 06-27-2022 10:52-0400 Diastolic blood pressure 73 mm[Hg] Rena Brewster RN [facility] 06-27-2022 10:52-0400 Heart rate 78 /min Rena Brewster RN [facility] 06-27-2022 10:52-0400 Respiratory rate 20 /min Rena Brewster RN [facility] 06-27-2022 10:52-0400 SaO2% (BldA) [Mass fraction] 97 % Rena Brewster RN [facility] 06-27-2022 10:52-0400 Systolic blood pressure 135 mm[Hg] Rena Brewster RN [facility] 06-12-2022 14:23-0400 Body mass index (BMI) [Ratio] 34.59 kg/m2 Steve Yeison MBBS Work Phone: [facility] 06-12-2022 14:23-0400 Body temperature 97 [degF] Steve Yeison MBBS Work Phone: [facility] 06-12-2022 14:23-0400 Body weight 100.2 kg Steve Yeison MBBS Work Phone: [facility] 06-12-2022 14:23-0400 Diastolic blood pressure 66 mm[Hg] Steve Yeison MBBS Work Phone: [facility] 06-12-2022 14:23-0400 Heart rate 63 /min Steve Yeison MBBS Work Phone: [facility] 06-12-2022 14:23-0400 Systolic blood pressure 133 mm[Hg] Steve Yeison MBBS Work Phone: [facility] 05-20-2022 15:21-0400 Body temperature 97.9 [degF] Gian Villatoro MD Work Phone: [facility] 05-20-2022 15:21-0400 Diastolic blood pressure 64 mm[Hg] Gian Villatoro MD Work Phone: [phone])696-660135 [place] [address] 05-20-2022 15:21-0400 Heart rate 55 /min Gian Villatoro MD Work Phone: 7(816)665-109535 [place] [address] 05-20-2022 15:21-0400 Respiratory rate 15 /min Gian Villatoro MD Work Phone: [phone])856-084935 [place] [address] 05-20-2022 15:21-0400 SaO2% (BldA) [Mass fraction] 95 % Gian Villatoro MD Work Phone: [phone])247-072535 [place] [address] 05-20-2022 15:21-0400 Systolic blood pressure 145 mm[Hg] Gian Villatoro MD Work Phone: [phone])447-656435 [place] [address] 05-19-2022 12:15-0400 Body mass index (BMI) [Ratio] 35.87 kg/m2 Gian Villatoro MD Work Phone: [phone])652-053235 [place] [address] 05-19-2022 12:15-0400 Body weight 103.92 kg Gian Villatoro MD Work Phone: [phone] [place] [address] Comment on above: standing scale 05-16-2022 16:19-0400 Body height 170.2 cm Gian Villatoro MD Work Phone: [phone])258-937935 [place] [address] 10-19-2018 08:44-0500 BMI (Body Mass Index) 26.58 kg/m2 [facility] Work Phone: 10-19-2018 08:44-0500 BP Diastolic 76 mm[Hg] [facility] Work Phone: 10-19-2018 08:44-0500 BP Systolic 144 mm[Hg] [facility] Work Phone: 10-19-2018 08:44-0500 Height 172.7 cm [facility] Work Phone: 10-19-2018 08:44-0500 Pulse (Heart Rate) 92 /min [facility] Work Phone: 10-19-2018 08:44-0500 Pulse Oximetry 99 % [facility] Work Phone: 10-19-2018 08:44-0500 Respiratory Rate 16 /min [facility] Work Phone: 10-19-2018 08:44-0500 Weight 79.29 kg [facility] Work Phone: 10-12-2018 09:50-0500 BMI (Body Mass Index) 27.24 kg/m2 [facility] Work Phone: 10-12-2018 09:50-0500 Body Temperature 98.6 [degF] [facility] Work Phone: 10-12-2018 09:50-0500 BP Diastolic 80 mm[Hg] [facility] Work Phone: 10-12-2018 09:50-0500 BP Systolic 157 mm[Hg] [facility] Work Phone: 10-12-2018 09:50-0500 Height 169.5 cm [facility] Work Phone: 10-12-2018 09:50-0500 Pulse (Heart Rate) 94 /min [facility] Work Phone: 10-12-2018 09:50-0500 Weight 78.29 kg Alfredito Restrepo [facility] Work Phone: Encounters Encounter Date Encounter Type Care Provider Facility Start: 11-03-2023 End: 11-03-2023 ambulatory ZULY BRUNO Not Available Start: 10-06-2023 ambulatory Angel Carpio [facility],PharmD Pharmacy Outpatient [facility] Start: 10-06-2023 Patient encounter procedure Angel Carpio [facility],PharmD Pharmacy Outpatient [facility] Start: 09-29-2023 [facility] Start: 09-24-2023 [facility] Start: 09-23-2023 [facility] Start: 09-15-2023 [facility]ulatory [facility] Start: 08-28-2023 End: 09-11-2023 Evaluation and management of inpatient STEVE S YEISON Facility:[facility] Start: 08-28-2023 End: 09-11-2023 Evaluation and management of inpatient Steve S Yeison MBBS Work Phone: [id number] Start: 08-28-2023 ambulatory STEVE S YEISON Facility:[facility] Start: 08-28-2023 End: 08-28-2023 Office outpatient visit 25 minutes Steve S Yeison MBBS Work Phone: [facility] Comment on above: Immunosuppressed sta tus (Primary Dx); Kidney replaced by transplant; Aftercare following organ transplant; High risk medication use; Other general symptoms and signs; Abnormal blood chemistry; Hypertension secondary to other renal disorders Start: 08-19-2023 ambulatory Meka rueda [facility] Pharmacy Outpatient RX [facility] Start: 08-19-2023 Patient encounter procedure Meka Munoz [facility] Pharmacy Outpatient [facility] [place] Start: 06-12-2023 ambulatory REBECA Fisher ty:[facility] Start: 06-12-2023 End: 06-12-2023 Office outpatient visit 25 minutes Steve S Yeison MBBS Work Phone: [facility] Comment on above: 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) Start: 06-10-2023 ambulatory Maren Bar RPh,PharmD Pharmacy Outpatient [facility] Start: 06-10-2023 Patient encounter procedure Maren Bar RPh,PharmD Pharmacy Outpatient [facility] [place] Start: 05-26-2023 [facility] Start: 04-28-2023 End: 04-29-[address] DOCTOR EVANS Facility:[facility] Start: 04-13-2023 End: 04-13-2023 ambulatory [facility] Start: 03-12-2023 ambulatory Angel Fete RPh,PharmD Pharmacy Outpatient [facility] [place] Start: 03-12-2023 Patient encounter procedure Angel Fete RPh,PharmD Pharmacy Outpatient [facility] [place] Start: 03-10-2023 ambulatory Angel Fete RPh,PharmD Pharmacy Outpatient [facility] [place] Start: 03-10-2023 Patient encounter procedure Angel Fete RPh,PharmD Pharmacy Outpatient [facility] [place] Start: 03-02-2023 End: 03-03-[address] DOCTOR EVANS Facility:[facility] Start: 01-16-2023 [facility] Start: 01-16-2023 End: 01-16-2023 Office outpatient visit 25 minutes Daisha Max DO Work Phone: [facility] Comment on above: Abnormal blood chemi stry (Primary Dx); Liver transplant recipient; Kidney replaced by transplant; Immunosuppressed status; Aftercare following organ transplant Start: 12-29-2022 End: 12-30-[address] DOCTOR EVANS Facility:[facility]1 Start: 11-04-2022 End: 11-05-[address] DOCTOR EVANS Facility:[facility]1 Start: 09-15-2022 End: 09-16-[address] DOCTOR EVANS Facility:[facility] Start: 09-10-2022 End: 09-10-2022 Office outpatient visit 25 minutes Ryan Yepez MD Work Phone: [facility] Comment on above: BPH with obstruction /lower urinary tract symptoms (Primary Dx); Encounter for screening for malignant neoplasm of prostate Start: 08-28-2022 End: 08-29-2022 ambulatory ROB ZULY BRUNO Facility:[facility]1 Start: 08-14-2022 End: 08-15-[address] DOCTOR EVANS Facility:[facility] Start: 07-07-2022 End: 07-07-2022 Patient encounter procedure Ryan Yepez MD Work Phone: [facility] Comment on above: Other hydronephrosis (Primary Dx); -donor kidney transplant recipient Start: 07-07-2022 End: 07-07-2022 Subsequent hospital visit by physician Ryan Yepez MD Work Phone: Department of Radiology Comment on above: Arrived Start: 07-03-2022 End: 07-04-[address] DOCTOR EVANS Facility:[facility]1 Start: 07-03-2022 End: 07-04-[address] DOCTOR EVANS Facility:[facility] Start: 06-27-2022 End: 06-27-2022 Office outpatient visit 25 minutes Ryan Yepez MD Work Phone: [facility] Comment on above: Other hydronephrosis (Primary Dx) Start: 06-27-2022 End: 06-27-2022 Subsequent hospital visit by physician Ryan Yepez MD Work Phone: Department of Radiology Comment on above: Arrived Start: 06-27-2022 End: 06-27-2022 Patient encounter procedure Enzo Heart DO Work Phone: [facility] Comment on above: Attention to nephros pilo (Primary Dx) Start: 06-18-2022 End: 06-18-2022 ambulatory KE LUND . Facility:[facility]1 Start: 06-12-2022 End: 06-12-2022 Office outpatient visit 25 minutes Steve LEIGH Work Phone: [facility] Comment on above: Immunosuppressed sta tus (Primary Dx); Kidney replaced by transplant; Liver replaced by transplant; Abnormal blood chemistry; High risk medication use; Aftercare following organ transplant; Liver transplant recipient Start: 06-06-2022 End: 06-07-[address] DOCTOR EVANS Facility:[facility]1 Start: 06-04-2022 End: 06-04-2022 Follow-up encounter Enzo Heart DO Work Phone: [facility] Comment on above: Follow-up exam (Prim kacie Dx) Start: 05-15-2022 End: 05-20-2022 Evaluation and management of inpatient Gian Villatoro MD Work Phone: [id number] Comment on above: [facility] Start: 05-15-2022 End: 05-15-[address] GEORGE ALEXANDER Facility:[facility]1 Start: 05-11-2022 End: 05-11-[address] GEORGE ALEXANDER Facility:[facility]1 Start: 03-14-2022 ambulatory Comfort Rivera [facility] Work Phone: [facility] [place] Start: 03-14-2022 Patient encounter procedure Comfort Rivera [facility] Work Phone: [facility] [place] Start: 06-14-2021 End: 06-14-2021 ambulatory Comfort Chinedu Rivera [facility] Work Phone: [facility] Start: 06-14-2021 Patient encounter procedure Comfort Chinedu Rivera [facility] Work Phone: [facility] Start: 01-20-2020 End: 01-27-2020 Patient encounter procedure PEPE CASE Facility:[facility] Start: 01-06-2020 End: 01-07-2020 Patient encounter procedure [facility] Start: 01-06-2020 End: 01-06-2020 Subsequent hospital visit by physician [facility] Start: 10-24-2019 End: 10-25-2019 [facility] Start: 10-24-2019 End: 10-24-2019 Subsequent hospital visit by physician [facility] Start: 08-27-2019 End: 08-28-2019 Patient encounter procedure [facility] Start: 08-27-2019 End: 08-27-2019 Subsequent hospital visit by physician [facility] Start: 08-08-2019 End: 08-09-2019 Patient encounter procedure ROB PATINO [facility] Start: 08-08-2019 End: 08-08-2019 Subsequent hospital visit by physician [facility] Start: 08-03-2019 End: 08-04-2019 [facility] Start: 08-03-2019 End: 08-03-2019 Subsequent hospital visit by physician [facility] Start: 08-01-2019 End: 08-02-2019 [facility] Start: 08-01-2019 End: 08-01-2019 Subsequent hospital visit by physician [facility] Start: 06-10-2019 End: 06-11-2019 Patient encounter procedure RENA GUDINO [facility] Start: 06-01-2019 End: 06-02-2019 [facility] Start: 01-14-2019 End: 01-15-2019 Patient encounter procedure RENA GUDINO [facility] Start: 11-17-2018 End: 11-17-2018 Patient encounter procedure Melania Dangelo [facility] Pre Transplant Office Comment on above: Social Work Follow-u p Start: 10-19-2018 End: 10-19-2018 Patient encounter [facility] Pre Transplant Office Comment on above: Cirrhosis of liver w ithout ascites, unspecified hepatic cirrhosis type (Primary Dx) Start: 10-19-2018 End: 10-19-2018 Office outpatient visit 25 minutes Christin Elizabeth Work Phone: Division of Gastroenterology and Hepatology [place] Comment on above: Alcoholic cirrhosis of liver without ascites (Primary Dx); Pre-transplant evaluation for liver transplant; Hepatic encephalopathy Start: 10-13-2018 End: 10-13-2018 Patient encounter procedure [facility] Pre Transplant Office Comment on above: Reschedule Outside Medical Allan rds Request Start: 10-12-2018 End: 10-12-2018 Patient encounter procedure Sophie Raeann [facility] Pre Transplant Office Comment on above: Alcoholic cirrhosis, unspecified whether ascites present (Primary Dx); Pre-transplant evaluation for liver transplant Start: 10-12-2018 End: 10-12-2018 Office outpatient new 60 minutes Alfredito Feliz Kaye Work Phone: [facility] Comment on above: Alcoholic cirrhosis, unspecified whether ascites present; ESRD (end stage renal disease) on dialysis; Pre-transplant evaluation for liver transplant Start: 10-06-2018 End: 10-06-2018 Patient encounter procedure Yovani Orr Work Phone: Department of Radiology Comment on above: Canceled (Insurance Company Redirected Pt) Start: 10-05-2018 Patient encounter status Comfort Rivera [facility] Work Phone: [facility] Procedures Date Procedure Procedure Detail Performing Clinician Start: 09-23-2023 Follow-up visit Follow-up HAKEEM ALAMO Start: 09-11-2023 Glucose measurement, blood Kevin Sage MD Work Phone: Start: 09-11-2023 Assay of magnesium Milton Kelly MD Work Phone: Start: 09-11-2023 Drug screen quantita tive tacrolimus Evan Kelly MD Work Phone: Start: 09-10-2023 Assay of magnesium Milton Kelly MD Work Phone: Start: 09-10-2023 Hepatic function panel Laurel Serrano MD, PhD Work Phone: Start: 09-09-2023 Assay of magnesium Milton Kelly MD Work Phone: Start: 09-09-2023 Drug screen quantita tive tacrolimus Evan Kelly MD Work Phone: Start: 09-08-2023 Assay of magnesium Milton Kelly MD Work Phone: Start: 09-08-2023 Hepatic function panel Evan Kelly MD Work Phone: Start: 09-07-2023 Assay of magnesium Milton Kelly MD Work Phone: Start: 09-07-2023 Hepatic function panel Evan Kelly MD Work Phone: Start: 09-06-2023 Assay of magnesium Milton Kelly MD Work Phone: Start: 09-06-2023 Hepatic function panel Evna Kelly MD Work Phone: Start: 09-06-2023 Oscillating positive expiratory pressure (flutter) physiotherapy Laurel Serrano MD, PhD Work Phone: Start: 09-05-2023 Assay of magnesium Milton Kelly MD Work Phone: Start: 09-05-2023 Hepatic function panel Evan Kelly MD Work Phone: Start: 09-05-2023 CONTINUOUS CARDIAC MONITORING STRIP Other Other Start: 09-04-2023 Calcium ionized Nikunj Sage MD Work Phone: Start: 09-04-2023 Radiologic exam ches t single view Crow Diaz MD Work Phone: Start: 09-04-2023 Oscillating positive expiratory pressure (flutter) physiotherapy Laurel Serrano MD, PhD Work Phone: Start: 09-04-2023 Assay of magnesium Milton Kelly MD Work Phone: Start: 09-04-2023 Hepatic function panel Evan Kelly MD Work Phone: Start: 09-03-2023 Flow cytometry cell surf marker techl only ea Izzy Loera MD Work Phone: Start: 09-03-2023 Radiologic exam ches t single view Izzy Loera MD Work Phone: Start: 09-03-2023 Assay of magnesium Milton Kelly MD Work Phone: Start: 09-03-2023 Hepatic function panel Evan Kelly MD Work Phone: Start: 09-02-2023 Brnchsc incl fluor g dnce dx w/cell washg spx Izzy Loera MD Work Phone: Start: 09-02-2023 End: 09-02-2023 Culture fngi mold/yeast prsmptv oth xcpt blood Crow Diaz MD Work Phone: Start: 6 End: 09-02-2023 Cytp slctv cell enhancement interpj xcpt c/v Crow Diaz MD Work Phone: Start: 09-02-2023 Assay of magnesium Milton Kelly MD Work Phone: Start: 09-02-2023 Hepatic function panel Evan Kelly MD Work Phone: Start: 09-02-2023 Iaad ia hiv-1 ag w/h iv-1 & hiv-2 antbdy single Evan Kelly MD Work Phone: Start: 09-01-2023 Iaad ia cryptococcus neoformans Evan Kelly MD Work Phone: Start: 09-01-2023 Assay of magnesium Milton Kelly MD Work Phone: Start: 09-01-2023 Hepatic function panel Evan Kelly MD Work Phone: Start: 09-01-2023 Iadna nos amplified probe tq each organism Evan White DO Work Phone: Start: 08-31-2023 End: 08-31-2023 Iaad ia mult step method nos each organism Laurel Serrano MD, PhD Work Phone: Start: 08-31-2023 Ct abdomen & pelvis w/o contrast material Laurel Serrano MD, PhD Work Phone: Start: 08-31-2023 Ct thorax w/o contra st material Laurel Serrano MD, PhD Work Phone: Start: 08-31-2023 Assay of ferritin Laurel Serrano MD, PhD Work Phone: Start: 08-31-2023 Hepatic function panel Evan Kelly MD Work Phone: Start: 08-30-2023 Assay of magnesium Milton Kelly MD Work Phone: Start: 08-30-2023 Hepatic function panel Evan Kelly MD Work Phone: Start: 08-29-2023 Prothrombin time Laurel Serrano MD, PhD Work Phone: Start: 08-29-2023 Us trnsplnt kidney r eal time w/image docmtn Aric Turner MD Work Phone: Start: 08-29-2023 Drug screen quantita tive tacrolimus Aric Turner MD Work Phone: Start: 08-29-2023 Assay of magnesium Milton Kelly MD Work Phone: Start: 08-29-2023 Hepatic function panel Evan Kelly MD Work Phone: Start: 08-29-2023 Iaad ia mult step me thod nos each organism Aric Turner MD Work Phone: Start: 08-29-2023 Culture bct isol&prs mptv id isolate ea urine Laurel Serrano MD, PhD Work Phone: Start: 08-29-2023 EXTRA MICRO Aric herrera MD Work Phone: Start: 08-29-2023 URINALYSIS REFLEX TO CULTURE Aric Turner MD Work Phone: Start: 08-28-2023 Radiologic exam ches t single view Aric Turner MD Work Phone: Start: 08-28-2023 DARYL AURIS SCREEN BY PCR Carol Ann Capps BODY DESIGN CHECKER-RESEARCH NEUROPSYCHOLOGIST Work Phone: Start: 08-28-2023 CBC AND ELECTRONIC DIFF Gi Aranda MD Work Phone: Start: 08-28-2023 Complete blood count with white cell differential, automated Gi Aranda MD Work Phone: Start: 08-28-2023 End: 08-28-2023 Culture bacterial blood aerobic w/id isolates Aric Turner MD Work Phone: Start: 08-28-2023 Electrolyte panel Mario Aranda MD Work Phone: Start: 08-28-2023 Respiratory virus DN A+RNA [Identifier] in Unspecified specimen by ESTELITA with probe detection Gi Aranda MD Work Phone: Start: 09-15-[address] DOCTOR EVANS Comment on above: Performed By: #### C MP #### [facility] [address] [place] [address] Dr. Dwight Waters Start: 07-07-2022 Rmvl nfros tube req fluoro guidance Ryan Yepez MD Work Phone: Start: 06-27-2022 Ct abdomen & pelvis w/o contrast material Evan Byrd MD Work Phone: Start: 06-12-2022 Culture bct isol&prs mptv id isolate ea urine Steve S Yeison BS Work Phone: Start: 06-12-2022 EXTRA MICRO Steve S Nor i MBBS Work Phone: Start: 06-12-2022 Hemoglobin glycosyla rukhsana a1c Steve S Yeison MBBS Work Phone: Start: 06-12-2022 Hepatic function panel Yovani Orr MD Work Phone: Start: 06-12-2022 URINALYSIS REFLEX TO CULTURE Steve S Yeison JOSHBS Work Phone: Start: 05-20-2022 Urography antegrade rs&i Evan Byrd MD Work Phone: Start: 05-20-2022 Assay of magnesium Milton gris Bennett MD Work Phone: Start: 05-19-2022 Assay of magnesium Beckie Gamez MD Work Phone: Start: 05-19-2022 Assay of magnesium Milton Bennett MD Work Phone: Start: 05-18-2022 Assay of magnesium Beckie Gamez MD Work Phone: Start: 05-18-2022 Assay of magnesium Milton Bennett MD Work Phone: Start: 05-17-2022 Radiologic exam ches t single view Nishant Gamez MD Work Phone: Start: 05-17-2022 Assay of magnesium Beckie Gamez MD Work Phone: Start: 05-17-2022 Plmt nephrostomy cat h prq new access rs&i Stephan Kisha LUZ Start: 05-17-2022 Culture bct isol&prs mptv id isolate ea urine Nishant Gamez MD Work Phone: Start: 05-17-2022 Assay of magnesium Milton Bennett MD Work Phone: Start: 05-16-2022 Us trnsplnt kidney r eal time w/image docmtn Nishant Gamez MD Work Phone: Start: 05-16-2022 Creatinine blood Nishant Gamez MD Work Phone: Start: 05-16-2022 Assay of magnesium Milton Bennett MD Work Phone: Start: 05-16-2022 Drug screen quantita tive tacrolimus Evan Bennett MD Work Phone: Start: 05-16-2022 Chloride urine Evan Bennett MD Work Phone: Start: 05-16-2022 Culture bacterial bl ood aerobic w/id isolates Evan Bennett MD Work Phone: Start: 05-16-2022 SARS-CoV-2 (COVID-19 ) RNA [Presence] in Unspecified specimen by ESTELITA with probe detection Fred Prince MD Work Phone: Start: 05-15-2022 Radiologic exam ches t single view Evan Bennett MD Work Phone: Start: 05-15-2022 Culture bct isol&prs mptv id isolate ea urine Vladislav Elizalde MD Work Phone: Start: 05-15-2022 EXTRA MICRO Vladislav sanches MD Work Phone: Start: 05-15-2022 Urnls dip stick/tabl et rgnt auto w/o microscopy Vldaislav Elizalde MD Work Phone: Start: 05-15-2022 Assay of lipase Vladislav Elizalde MD Work Phone: Start: 05-15-2022 CBC AND ELECTRONIC DIFF Vladislav Elizalde MD Work Phone: Start: 05-15-2022 Complete blood count with white cell differential, automated Vladislav Elizalde MD Work Phone: Start: 05-15-2022 GOLD TOP TUBE Vladislav rojas MD Work Phone: Start: 05-15-2022 Hepatic function panel Vladislav Elizalde MD Work Phone: Start: 05-15-2022 LAVENDER TOP TUBE Vladislav Elizalde MD Work Phone: Start: 05-15-2022 LT BLUE TOP TUBE Vladislav Elizalde MD Work Phone: Start: 05-15-2022 MINT GREEN TOP TUBE Kain Elizalde MD Work Phone: Start: 05-15-2022 RAINBOW DRAW Vladislav sanches MD Work Phone: Start: 05-10-2020 H/O: liver recipient S/P liver trans plant Comfort Rivera [facility] Work Phone: Start: 04-08-2020 H/O: liver recipient Liver tra nsplant recipient Comfort Rivera [facility] Work Phone: Start: 01-06-2020 Potassium serum plasma/whole blood ROB KASMANI Start: 01-06-2020 Potassium serum plasma/whole blood Rena Rist Work Phone: Start: 10-24-2019 HEMOGLOBIN AND HEMAT OCRIT, BLOOD ROB KASMANI Start: 10-24-2019 Blood count hemoglobin Tana S Johar Work Phone: Start: 08-27-2019 Blood count hemoglobin Rena Rist Work Phone: Start: 08-08-2019 Blood count hemoglobin ROB KASMANI Start: 08-08-2019 Blood count hemoglobin Rob Kasmani Work Phone: Start: 08-03-2019 Hemoglobin glycosyla rukhsana a1c ROB KASMANI Start: 08-03-2019 Hemoglobin glycosyla rukhsana a1c Rob Kasmani Work Phone: Start: 08-01-2019 Blood count hemoglobin Rob Kasmani Work Phone: Start: 07-25-2019 History of renal transplant -donor kidney transplant recipient Comfort Rivera [facility] Work Phone: Start: 06-10-2019 HEMOGLOBIN AND HEMAT OCRIT, BLOOD ROB KASMANI Start: 06-01-2019 Blood count hemoglobin ROB KASMANI Start: 03-22-2019 Lipid 1996 panel - S fabricio or Plasma Comfort Rivera [facility] Work Phone: Start: 01-14-2019 Potassium serum plasma/whole blood ROB KASMANI Start: 10-19-2018 End: 10-19-2018 Ultrasonography of abdomen Yovani Orr Work Phone: Start: 10-12-2018 End: 10-12-2018 Blood typing serologic abo Yovani Orr Work Phone: Start: 10-12-2018 End: 10-12-2018 Hemoglobin glycosylated a1c Yovani Orr Work Phone: Start: 10-12-2018 End: 10-12-2018 25 hydroxy includes fractions if performed Yovani Orr Work Phone: Start: 10-12-2018 End: 10-12-2018 Albumin serum plasma/whole blood Yovani Orr Work Phone: Start: 10-12-2018 End: 10-12-2018 Alpha-fetoprotein serum Yovani Orr Work Phone: Start: 10-12-2018 End: 10-12-2018 Antibody cytomegalovirus cmv Yovani Orr Work Phone: Start: 10-12-2018 End: 10-12-2018 Antibody dann-montes eb virus viral capsid vca Yovani Mejias [employer] Work Phone: Start: 10-12-2018 End: 10-12-2018 Antibody herpes smplx type 1 Yovani Orr Work Phone: Start: 10-12-2018 End: 10-12-2018 Antibody rubeola Yovani Mejias [employer] Work Phone: Start: 10-12-2018 End: 10-12-2018 Antibody varicella-zoster Yovani [employer] Work Phone: Start: 10-12-2018 End: 10-12-2018 Assay of ethanol Yovani Orr Work Phone: Start: 10-12-2018 End: 10-12-2018 Assay of ferritin Yovani Orr Work Phone: Start: 10-12-2018 End: 10-12-2018 Assay of iron Yovani Mejias [employer] Work Phone: Start: 10-12-2018 End: 10-12-2018 Assay of parathormone Yovani Mejias [employer] Work Phone: Start: 10-12-2018 End: 10-12-2018 Assay of phosphatase alkaline Yovani Mejias [employer] Work Phone: Start: 10-12-2018 End: 10-12-2018 Bilirubin total Yovani Orr Work Phone: Start: 10-12-2018 End: 10-12-2018 Calcium total Yovani Mejias [employer] Work Phone: Start: 10-12-2018 End: 10-12-2018 CBC, EDIF, PLATELET Yovani Orr Work Phone: Start: 10-12-2018 End: 10-12-2018 Creatinine blood Yovani Orr Work Phone: Start: 10-12-2018 End: 10-12-2018 Drug screening cannabinoids natural Yovani Orr Work Phone: Start: 10-12-2018 End: 10-12-2018 Hepatitis a antibody haab Yovani Orr Work Phone: Start: 10-12-2018 End: 10-12-2018 Hepatitis b core antibody hbcab total Yovani Mejias [employer] Work Phone: Start: 10-12-2018 End: 10-12-2018 Hepatitis b surf antibody hbsab Yovani Mejias [employer] Work Phone: Start: 10-12-2018 End: 10-12-2018 Hepatitis c antibody Yovani Mejias [employer] Work Phone: Start: 10-12-2018 End: 10-12-2018 Iaad ia hepatitis b surface antigen Yovani Mejias [employer] Work Phone: Start: 10-12-2018 End: 10-12-2018 Iaad ia hiv-1 ag w/hiv-1 & hiv-2 antbdy single Yovani Orr Work Phone: Start: 10-12-2018 End: 10-12-2018 PSA screening Yovani Orr Work Phone: Start: 10-12-2018 End: 10-12-2018 Thromboplastin time partial plasma/whole blood Yovani Orr Work Phone: Start: 10-12-2018 End: 10-12-2018 Assay of ethanol Yovani Mejias [employer] Work Phone: Start: 10-12-2018 End: 10-12-2018 Drug/substance definitive qual/quant nos 7/more Yovani Orr Work Phone: Start: 10-12-2018 End: 10-12-2018 Protein total xcpt refractometry urine Yovani Orr Work Phone: Start: 10-12-2018 End: 10-12-2018 VOLUME MEASURED Yovani Orr Work Phone: H/O: liver recipient Liver repla vida by transplant Steve S Yeison MBBS Work Phone: H/O: liver recipient Liver trans plant recipient Daisha A Sobotka DO Work Phone: History of renal transplant Kidney replaced by transplant Steve S Yeison MBBS Work Phone: History of renal transplant -donor kidney transplant recipient Ryan Yepez MD Work Phone: History of renal transplant Kidney replaced by transplant Daisha Tray Sobotka DO Work Phone: History of renal transplant Kidney replaced by transplant Steve S Yeison MBBS Work Phone: History of renal transplant Kidney replaced by transplant Steve S Yeison MBBS Work Phone: History of renal transplant -donor kidney transplant recipient Steve S Yeison MBBS Work Phone: Plan of Treatment Date Care Activity Detail Author Start: 08-31-2024 Screening for malignant neoplasm of lung [facility] Start: 06-17-2024 End: 06-17-2024 ambulatory [facility] Start: 06-17-2024 End: 06-17-2024 Patient encounter procedure [facility] Start: 03-22-2024 Fasting lipid profile LIPID SCREENING [facility] Start: 03-22-2024 Lipid panel [facility] Start: 01-15-2024 End: 01-15-2024 ambulatory [facility] Start: 01-15-2024 End: 01-15-2024 Patient encounter procedure [facility] Start: 12-08-2023 End: 09-07-2024 CT Chest WO contrast [facility] Work Phone: Start: 09-23-2023 End: 09-23-2023 ambulatory Infectious Diseases Care [facility] Start: 09-23-2023 End: 09-23-2023 Telemedicine consultation with patient 09/23/2023 4:00 PM EDT Telemedicine Infectious Diseases [facility] [address] [place] [address] Hakeem Alamo MD [address] [place] [address] Infectious Diseases Care [facility] Start: 09-15-2023 End: 09-10-2024 ITRACONAZOLE LEVEL [facility] Start: 08-25-2023 End: 08-25-2024 ALLOSCREEN RECIPIENT (POST TX PRA) ALLOSCREEN RECIPIENT (POST TX PRA) Lab Routine Kidney replaced by transplant Aftercare following organ transplant Immunosuppressed status High risk medication use Other general symptoms and signs Abnormal blood chemistry Expected: 08/25/2023, Expires: 08/25/2024 [facility] Comment on above: Expected: 08/25/2023, Expires: Start: 07-31-2023 Influenza vaccination [facility] Start: 06-12-2023 End: 06-12-2023 Patient encounter procedure 06/12/2023 Office Visit Transplant Surgery Steve Latham MBBS [address] [place] [address] [facility] Start: 03-11-2023 End: 03-11-2023 Telemedicine consultation with patient 03/11/2023 Telemedicine Urology Ryan eYpez MD [address] [facility] [address] [place] [address] [facility] Start: 01-16-2023 End: 01-16-2023 Patient encounter procedure 01/16/2023 Office Visit Transplant Surgery [facility] Start: 10-31-2022 End: 10-31-2022 Patient encounter procedure 10/31/2022 Office Visit Transplant Surgery Steve Latham MBBS [address] [place] [address] [facility] Start: 09-10-2022 End: 09-10-2023 PSA screening PSA, SCREENING Lab Routine BPH with obstruction/lower urinary tract symptoms Encounter for screening for malignant neoplasm of prostate Expected: 09/10/2022 (Approximate), Expires: 09/10/2023 [facility] Comment on above: Expected: 09/10/2022 (Approximate), Expi res: 09/10/2023 Start: 08-11-2022 End: 08-11-2022 Patient encounter procedure 08/11/2022 Office Visit UrologRyan Batista MD [address] [place] [address] [address] [place] [address] [facility] Start: 07-31-2022 Influenza vaccination [facility] Start: 07-07-2022 End: 07-07-2022 Patient encounter procedure 07/07/2022 Office Visit Ryan Webster MD [address] [place] [address] [address] [place] [id number] [facility] Start: 07-07-2022 End: 07-07-2023 FLUORO IMAGING FOR UROLOGY [facility] Comment on above: Expected: 07/07/2022, Expires: 3 1 Occurrences starti ng 07/07/2022 until 07/07/2022 Start: 06-27-2022 End: 06-27-2022 Patient encounter procedure 06/27/2022 Office Visit Ryan Webster MD [address] [place] [place] [address] [address] [place] [address] [facility] Start: 06-27-2022 End: 06-27-2023 Basic metabolic 2000 panel - Serum or Plasma BASIC METABOLIC PANEL Lab Routine Other hydronephrosis Expected: 06/27/2022, Expires: 06/27/2023 [facility] Comment on above: Expected: 06/27/2022, Expires: 3 Start: 06-27-2022 End: 06-27-2022 Patient encounter procedure 06/27/2022 Appointment Computerized Tomography Scan Ryan Yepez MD [address] [facility] [address] [place] [address] Department of Radiology Start: 06-15-2022 End: 05-16-2023 CT Abdomen and Pelvis WO contrast CT ABDOMEN/PELVIS WITHOUT CONTRAST Imaging Routine FAYE (acute kidney injury) Expected: 06/15/2022 (Approximate), Expires: 05/16/2023 [facility] Work Phone: Comment on above: Expected: 06/15/2022 (Approximate), Expi res: 05/16/2023 Start: 06-12-2022 End: 06-12-2022 Patient encounter procedure 06/12/2022 Office Visit Transplant Surgery Steve Latham MBBS [address] [place] [address] [facility] Start: 06-11-2022 End: 06-11-2023 BK VIRUS DNA QN, PCR, PLASMA BK VIRUS DNA QN, PCR, PLASMA Lab Routine Kidney replaced by transplant Liver replaced by transplant Abnormal blood chemistry Expected: 06/11/2022, Expires: 06/11/2023 [facility] Comment on above: Expected: 06/11/2022, Expires: 3 Start: 06-04-2022 End: 06-04-2022 Patient encounter procedure 06/04/2022 Office Visit Interventional Radiology [facility] Start: 10-18-2021 End: 10-18-2021 Patient encounter procedure 10/18/2021 Office Visit Transplant Surgery Steve Latham MBBS [address] [place] [address] [facility] Transplant [facility] Start: 07-31-2021 Influenza vaccination INFLUENZA VACCINE (#1) [facility] Start: 07-26-2021 End: 07-26-2021 Patient encounter procedure 07/26/2021 Office Visit Transplant Surgery [facility] Start: 2021 Prostate specific antigen measurement [facility] Start: 2021 Screening for malignant neoplasm of lung LUNG CANCER SCREENING [facility] Start: 2021 Zoster vaccine hzv live for subcutaneous use ZOSTER (SHINGLES) VACCINE (1 of 2) [facility] Start: 09-20-2020 Colonoscopy COLORECTAL CANCER SCREENING DISCUSSION [facility] Start: 09-20-2020 Screening for malignant neoplasm of colon [facility] Start: 07-31-2019 Influenza vaccination Flu vaccine (#1) [place], [place] Start: 05-22-2019 Annual Wellness Visit (AWV) Annual Wellness Visit (AWV) [place] Start: 04-18-2019 End: 10-19-2019 Ultrasonography of abdomen US ABDOMEN RUQ/LIVER/GB Routine Cirrhosis of liver without ascites, unspecified hepatic cirrhosis type Expected: 04/18/2019 (Approximate), Expires: 10/19/2019 [facility] Work Phone: Comment on above: Expected: 04/18/2019 (Approximate), Expi res: 10/19/2019 Start: 01-25-2019 End: 01-25-2019 Ambulatory 01/25/2019 Office Visit Gastroenterology Christin Elizabeth, BODY DESIGN CHECKER-LIFE INSURANCE SPECIALIST [address] [place] [address] Division of Gastroenterology and Hepatology Gavin Start: 11-19-2018 End: 11-19-2018 Ambulatory 11/19/2018 Appointment Pulmonary Diagnostics [facility] Start: 11-19-2018 End: 11-19-2018 [facility] Start: 10-19-2018 End: 10-19-2018 Ambulatory Ultrasound Jakob Start: 10-12-2018 End: 10-12-2019 Hemoglobin A1c/Hemoglobin.total mass fraction (Bld) HEMOGLOBIN A1C Routine Alcoholic cirrhosis, unspecified whether ascites present Pre-transplant evaluation for liver transplant Expected: 10/12/2018, Expires: 10/12/2019 [facility] Work Phone: Comment on above: Expected: 10/12/2018, Expires: 9 Start: 10-12-2018 End: 10-12-2019 TYPE AND SCREEN - NOT FOR TRANSFUSION TYPE AND SCREEN - NOT FOR TRANSFUSION Routine Alcoholic cirrhosis, unspecified whether ascites present Pre-transplant evaluation for liver transplant Expected: 10/12/2018, Expires: 10/12/2019 [facility] Work Phone: Comment on above: Expected: 10/12/2018, Expires: 9 Start: 07-31-2018 Influenza vaccination INFLUENZA VACCINE (#1) [facility] Work Phone: Start: 2011 Fasting lipid profile LIPID SCREENING [facility] Work Phone: Start: 2011 Lipid screen Lipid screen [place], [place] Start: 1990 DTaP/Tdap/Td vaccine (1 - Tdap) DTaP/Tdap/Td vaccine (1 - Tdap) [place], [place] Start: 1990 Hepatitis B Vaccine (1 of 3 - Risk Recombivax 3-dose series) Hepatitis B Vaccine (1 of 3 - Risk Recombivax 3-dose series) [place] Start: 1990 Third diphtheria, tetanus and acellular pertussis (DTaP) vaccination [facility] Start: 1990 Zoster vaccine hzv live for subcutaneous use ZOSTER (SHINGLES) VACCINE (1 of 2) [facility] Start: 1990 [facility] Start: 1989 Tetanus vaccination TETANUS [facility] Start: 1986 HIV screen HIV screen [place], [place] Start: 02-17-1984 HIV screening HIV SCREENING DISCUSSION [facility] Work Phone: Start: 1983 COVID-19 VACCINE (1) COVID-19 VACCINE (1) [facility] Start: 1982 DTaP/Tdap/Td vaccine (1 - Tdap) DTaP/Tdap/Td vaccine (1 - Tdap) [place] Start: 1977 Pneumococcal 0-64 years Vaccine (1 of 3 - PCV13) Pneumococcal 0-64 years Vaccine (1 of 3 - PCV13) [place] Start: 1977 PNEUMOCOCCAL VACCINE SERIES (1 - PCV) PNEUMOCOCCAL VACCINE SERIES (1 - PCV) [facility] Start: 1977 [facility] Start: 02-17-1976 COVID-19 VACCINE (#1) COVID-19 VACCINE (#1) [facility] Start: 02-17-1976 [facility] Start: 1971 COVID-19 VACCINE (#1) COVID-19 VACCINE (#1) [facility] Start: 1971 Hepatitis B vaccination HEP B VACCINE (1 of 3 - 3-dose series) [facility] Start: 1971 Tetanus vaccination [facility] BK VIRUS DNA QN, PCR , PLASMA BK VIRUS DNA QN, PCR, PLASMA Lab Routine Kidney replaced by transplant Liver replaced by transplant Abnormal blood chemistry 06/12/2022 3:38 PM EDT [facility] CALCULI, URINARY (KIDNEY STONE) CALCULI, URINARY (KIDNEY STONE) Fluids Routine 05/19/2022 8:16 AM EDT [facility] Work Phone: CANNABINOIDS, QUANT (URINE)THC CONFIRMATION CANNABINOIDS, QUANT (URINE)THC CONFIRMATION Routine Alcoholic cirrhosis, unspecified whether ascites present ESRD (end stage renal disease) on dialysis Pre-transplant evaluation for liver transplant 10/12/2018 12:57 PM EST [facility] Work Phone: End: 09-10-2024 CHEM 6 (LYTES, BUN CREA) [facility] EBV VCA IGG AB EBV VCA IGG AB R outine Alcoholic cirrhosis, unspecified whether ascites present ESRD (end stage renal disease) on dialysis Pre-transplant evaluation for liver transplant 10/12/2018 12:57 PM [facility] Work Phone: Fungus identified in Unspecified specimen by Culture [facility] HLA TYPING (SOLID ORGAN) HLA TYPING (SOLID ORGAN) Routine Alcoholic cirrhosis, unspecified whether ascites present ESRD (end stage renal disease) on dialysis Pre-transplant evaluation for liver transplant 10/12/2018 12:57 PM [facility] Work Phone: HSV 1 AND 2 IGG ANTIBODY HSV 1 AND 2 IGG ANTIBODY Routine Alcoholic cirrhosis, unspecified whether ascites present ESRD (end stage renal disease) on dialysis Pre-transplant evaluation for liver transplant 10/12/2018 12:57 PM [facility] Work Phone: 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 specific culture [facility] PLACEMENT NEPHROSTOM Y CATHETER PERCUTANEOUS W/ IMAGE GUIDANCE PLACEMENT NEPHROSTOMY CATHETER PERCUTANEOUS W/ IMAGE GUIDANCE Imaging Routine Hydronephrosis due to obstruction of ureteral orifice FAYE (acute kidney injury) 05/17/2022 11:08 AM EDT [facility] [place] POST VOID RESIDUAL [place] POST VO [place] RESIDUAL [place] - OFFICE PERFORMED Routine BPH with obstruction/lower urinary tract symptoms Ordered: 09/10/2022 [facility] Comment on above: Ordered: 09/10/2022 PTH INTACT PTH INTACT Routi ne Alcoholic cirrhosis, unspecified whether ascites present ESRD (end stage renal disease) on dialysis Pre-transplant evaluation for liver transplant 10/12/2018 12:57 PM [facility] Work Phone: RUBEOLA IGG AB (IMMU NE STATUS) RUBEOLA IGG AB (IMMUNE STATUS) Routine Alcoholic cirrhosis, unspecified whether ascites present ESRD (end stage renal disease) on dialysis Pre-transplant evaluation for liver transplant 10/12/2018 12:57 PM [facility] Work Phone: End: 09-10-2024 TACROLIMUS LEVEL, TROUGH (PRE DRUG LEVEL) [facility] VARICELLA IGG AB (IM M STATUS) VARICELLA IGG AB (IMM STATUS) Routine Alcoholic cirrhosis, unspecified whether ascites present ESRD (end stage renal disease) on dialysis Pre-transplant evaluation for liver transplant 10/12/2018 12:57 PM EST [facility] Work Phone: Payers Date Payer Category Payer Unknown [id number] 2019 Unknown [facility] [id number] 2019-Present [id number] 2018 Medicaid MEDICAID [facility] DEPT OF JOB xxxxxxxxxxxx 2018-Present [phone] [address] [place] [address] xxxxxxxxxxxx [id number] 2018 Medicaid MEDICAID MEDICAI [id number] 2018-Present [address] [place] [address] [id number] .[id number] 2018 Medicaid [id number] .[id number] 2018 Medicare MEDICARE MEDICAR E PART A AND B xxxxxxxxxxx 2018-Present [phone] [address] [address] [place] [address] xxxxxxxxxxx [id number] [id number] 2018 Medicare [id number] 2018 Medicare MEDICARE MEDICAR E A AND B [id number] 2018-Present [address] [place] [address] [id number] .[id number] 2018 Medicare [id number] 1.13.172.2.7.3 .[id number] 1971 Unknown [id number] 2.16.840.1.456058.3.579.2.173 1971 Unknown [id number] 2.16.840.1.483046.3.579.2.173 1971 Unknown [id number] 2.16.840.1.634231.3.579.2.173 1971 Unknown [id number] 2.16.840.1.635746.3.579.2.173 1971 Unknown [id number] 2.16.840.1.312171.3.579.2.173 1971 Unknown [id number] 2.16.840.1.125119.3.579.2.173 1971 Unknown [id number] 2.16.840.1.367014.3.579.2.173 1971 Unknown [id number] 2.16.840.1.009689.3.579.2.173 1971 Unknown [id number] 2.16.840.1.454894.3.579.2.647 1971 Unknown [id number] 2.16.840.1.055561.3.579.2.593 1971 Unknown [id number] 2.16.840.1.491166.3.579.2.593 1971 Unknown [id number] 2.16.840.1.089639.3.579.2.593 1971 Unknown [id number] 2.16.840.1.569483.3.579.2.593 1971 Unknown [id number] 2.16.840.1.626403.3.579.2.593 1971 Unknown [id number] 2.16.840.1.577436.3.579.2.593 1971 Unknown [id number] 2.16.840.1.622206.3.579.2.593 1971 Unknown [id number] 2.16.840.1.506968.3.579.2.593 1971 Unknown [id number] 2.16.840.1.104755.3.579.2.593 1971 Unknown [id number] 2.16.840.1.040896.3.579.2.593 1971 Unknown [id number] 2.16.840.1.465539.3.579.2.593 1971 Unknown [id number] 2.16.840.1.448884.3.579.2.593 1971 Unknown [id number] 2.16.840.1.312666.3.579.2.593 1971 Unknown [id number] 2.16.840.1.664978.3.579.2.593 1971 Unknown [id number] 2.16.840.1.700515.3.579.2.593 1971 Unknown [id number] 2.16.840.1.252497.3.579.2.594 1971 Unknown [id number] 2.16.840.1.899856.3.579.2.594 1971 Unknown [id number] 2.16.840.1.131089.3.579.2.594 1971 Unknown [id number] 2.16.840.1.823351.3.579.2.594 1971 Unknown [id number] 2.16.840.1.176101.3.579.2.594 1971 Unknown [id number] 2.16.840.1.785879.3.579.2.594 1971 Unknown [id number] 2.16.840.1.717314.3.579.2.594 1971 Unknown [id number] 2.16.840.1.621071.3.579.2.594 1971 Unknown [id number] 2.16.840.1.345922.3.579.2.594 1971 Unknown [id number] 2.16.840.1.652812.3.579.2.125 9 1959 Medicaid [id number] 1958 Medicare [id number] Social History Date Type Detail Facility Start: 07-19-2018 End: 10-19-2018 Tobacco smoking status NHIS Former smoker [facility] Start: 07-19-1988 End: 05-14-2018 History of tobacco use Current smoker [facility] Work Phone: Start: 07-19-1988 End: 05-14-2018 History of tobacco use Cigarette Smoker [facility] Work Phone: Start: 10-19-2018 End: 09-26-2023 Cigarettes smoked current (pack per day) - Reported [facility] Work Phone: End: 07-19-1994 History of tobacco use Chews Tobacco [facility] Work Phone: Start: 1970 Sex Assigned At Not on file O [facility] Work Phone: Start: 11-03-2018 Alcohol intake Current non-dr forestry fire aid of alcohol (finding) [place], [place] Start: 06-22-2018 Alcohol Comment Hx of alcoholism [place], [place] Start: 11-03-2018 End: 09-26-2023 Alcohol intake No [place] Start: 07-19-2018 Tobacco use and exposure Former user [facility] Start: 09-06-2020 End: 09-26-2023 Alcohol intake Ex-drinker (finding) [facility] Start: 07-19-2018 Alcohol Comment stopped 05/14/2018 [facility] Start: 05-05-2022 End: 01-16-2023 Exposure to SARS-CoV-2 (event) Not sure [facility] Start: 07-07-2018 Gender identity Identifies as male gender (finding) [facility] Start: 01-16-2022 Sexual orientation Heterosexual (scooby kc) [facility] Medical Equipment Procedure Code Equipment Code Equipment Original Text Equipment Identifier Dates [id number] Start: 05-23-2020 [id number] Start: 04-12-2020 [id number], [id number] FDA Start: 05-17-2022 Comment on above: Description: Implant time-out completed by intra-procedural staff including this RN, voip technician, and performing physician. The following was completed. RN reads out loud implant type/size/ expiration date, and verbalizes location. Holds package up to tech to visually verify implant details. Tech reads back package details MD verifies verbally correct implant Time-out was completed for each coil during embolization, if applicable. Goals Date Patient Goal Desired Activity /State Personal health goal Clinical Notes 06-14-2021 to 10-06-2023 Vladislav Mcnally - 10/06/2023 9:30 AM Alin Rajput - 10/06/2023 9:30 AM ESTNursing Notes - Cheyanne Mcdonough RN - 09/11/2023 2:45 PM EDTPlan of Care - Terra Heart RN - 09/10/2023 5:54 PM EDT Note Date & Type Note Facility 10-06-2023 History of Present illness Narrative [facility]: Call Information: Date and Time of Contact: 10/06/2023 9:35 AM Method of Contact: By Phone Contact Type: Prescriptions Contactor: [facility] Contactee: Patient Contact Outcome: Call back later (pt says he has enough on hand for hospital supply (no exact amount given) ok to follow up in a few weeks) Shipping/Pickup: Medication Name: Mycophenolate 360 MG ; Prograf 0.2 MG Contact Info: Specialty ([place]) [phone] [facility] [phone] [facility] [phone] [facility] [phone] Bedside Delivery ([facility]) [phone] [facility]: Call Information: Date and Time of Contact: 10/23/2023 2:00 PM Method of Contact: By Phone Contact Type: Prescriptions Contactor: [facility] Contactee: Patient Contact Outcome: Left message and Call back later Shipping/Pickup: Medication Name: Mycophenolate 360mg and Prograf 0.2mg Contact Info: Specialty ([place]) [phone] [facility] [phone] [facility] [phone] [facility] [phone] Bedside Delivery ([facility]) [phone] documented in this encounter [facility] 09-11-2023 Miscellaneous Notes Pt discharged home with discharge instruction. Reviewed AVS with pt and all question answered. PIV removed. RN got pt medication from outpatient pharmacy and delivered it to pt. Signed Lab script was given to pt by this RN.Pt left will all personal belongings. Pt axox4 Per MD Serrano, pt is ok to go without oxygen even though pt is on 1L and pt only needs the oxygen during the night. pt will picket labor union his oxygen from [facility], 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 This RN made sure that pt has the address to the facility for the oxygen. VSS. Patient 89-92% on 1L via NC. Assessment unchanged at this time. Patient planned to discharge tomorrow. Problem: Infection, Risk/Actual (Adult) Goal: Identify Related Risk Factors and Signs and Symptoms Description: Related risk factors and signs and symptoms are identified upon initiation of Human Response Clinical Practice Guideline (CPG) Outcome: Ongoing Flowsheets (Taken 09/07/2023 0423 by Wilma Hay RN) Related Risk Factors (Infection, Risk/Actual): chronic illness/condition immunosuppressed prolonged hospitalization Signs and Symptoms (Infection, Risk/Actual): lab value changes malaise cultures positive Goal: Infection Prevention/Resolution Description: Patient will demonstrate the desired outcomes by discharge/transition of care. Outcome: Ongoing Flowsheets (Taken 09/05/2023 1833) Infection Prevention/Resolution: making progress toward outcome Patient is laying, no distress noted. Patient has been sating on RA ranging from 94-98% on continuous pulse ox and Sinus rhythm on telemetry, with no abnormal epidoses. Patient ambulates with steady gait to the bathroom. Patient's Amphotericin B is discontinued. Patient complains of no pain at this time. Patient has no further concerns at this time. Nothing follows. Aixa Alejandra RN Patient conducted a 6min around the unit with the use of his walker. Patient varied between 91-96% on RA during ambulation. Patient reported mild shortness of breath on ambulation, but tolerable. Patient ambulated 2 laps around the east end of the unit with steady gait. Nothing further at this time. Aixa Alejandra RN Patient seen ambulating in the [place] with TRANSLITERATOR. Patient was mildly short of breath on exertion. At rest patient is currently 96% on RA. Patient expressed only really needing supplemental oxygen when sleeping. Patient stated he is starting to have productions with cough. Patient encouraged to perform incentive spirometer 10 times qhr. Patient demonstrated effective use and verbalized understanding. Aixa Alejandra RN Rnn discussed plan of care with patient. Patient is weaned from 2L to 1L sating at 96-97%. Patient denies pain. Patient has a dry nonproductive cough, given Robitussin. Patient continues on Amphotericin B. Continous pulse and tele monitoring displaying NSR. VSS, assessment unchanged. 2LNC overnight, GARCIA, infrequent loose coughs. Continue ampho B and itraconazole. Problem: Patient Care Overview Goal: Plan of Care Review Outcome: Progressing Toward Goal Goal: Individualization & Mutuality Outcome: Progressing Toward Goal Goal: Discharge Needs Assessment Outcome: Progressing Toward Goal Goal: Interdisciplinary Rounds/Family Conf Outcome: Progressing Toward Goal Problem: Breathing Pattern Ineffective (Adult) Goal: Identify Related Risk Factors and Signs and Symptoms Description: Related risk factors and signs and symptoms are identified upon initiation of Human Response Clinical Practice Guideline (CPG) Outcome: Progressing Toward Goal Goal: Effective Oxygenation/Ventilation Description: Patient will demonstrate the desired outcomes by discharge/transition of care. Outcome: Progressing Toward Goal Goal: Anxiety/Fear Reduction Description: Patient will demonstrate the desired outcomes by discharge/transition of care. Outcome: Progressing Toward Goal Problem: Infection, Risk/Actual (Adult) Goal: Identify Related Risk Factors and Signs and Symptoms Description: Related risk factors and signs and symptoms are identified upon initiation of Human Response Clinical Practice Guideline (CPG) Outcome: Progressing Toward Goal Goal: Infection Prevention/Resolution Description: Patient will demonstrate the desired outcomes by discharge/transition of care. Outcome: Progressing Toward Goal Problem: PT - Balance/Coordination/Neuro Re-Education Goal: Standing Dynamic/Static Balance Description: Pt will perform standing balance tasks for 15 minutes with modified independence with least restrictive device in order to improve functional mobility and safety with standing tasks. Outcome: Progressing Toward Goal Problem: PT - Mobility Goal: Ambulation Description: Pt will ambulate 500 feet with least restrictive device with modified independence to improve ability to navigate home environment. Outcome: Progressing Toward Goal Goal: Stairs Description: Pt will ascend/descend 10 stairs with one railings with standby assistance with least restrictive device to improve ability to perform functional mobility necessary in recommended discharge environment. Outcome: Progressing Toward Goal Problem: OT - Dressing Goal: Lower Body Dressing Description: Pt will complete LE dressing tasks with independence for improved ability to complete self-care activities. Outcome: Progressing Toward Goal Problem: OT - ADLs Goal: Toileting Description: Pt will complete toileting task including clothing management with independence for improved ability to safely complete self-care activities. Outcome: Progressing Toward Goal Problem: OT - Endurance Goal: Endurance Functional Mobilty Around Home Description: Pt will complete distance needed for common household mobility independently. Outcome: Progressing Toward Goal Problem: OT - Other Goal: Energy Conservation Description: Pt will follow energy conservation techniques appropriately 100% of the time during ADLs and functional mobility to conserve energy and maximize functional performance. Outcome: Progressing Toward Goal Problem: Patient Care Overview Goal: Plan of Care Review Outcome: Ongoing Goal: Individualization & Mutuality Outcome: Ongoing Goal: Discharge Needs Assessment Outcome: Ongoing Goal: Interdisciplinary Rounds/Family Conf Outcome: Ongoing VSS on RA while awake. 2L NC placed while sleeping as patient was desaturating. Ampho-B administered as directed. Itraconazole also ordered. Patient on SCDs as he is refusing heparin shots. Patient with good urine output. Will continue to monitor. Problem: Breathing Pattern Ineffective (Adult) Goal: Effective Oxygenation/Ventilation Description: Patient will demonstrate the desired outcomes by discharge/transition of care. Outcome: Ongoing Flowsheets (Taken 09/07/2023422) Effective Oxygenation/Ventilation: making progress toward outcome Problem: Infection, Risk/Actual (Adult) Goal: Identify Related Risk Factors and Signs and Symptoms Description: Related risk factors and signs and symptoms are identified upon initiation of Human Response Clinical Practice Guideline (CPG) Outcome: Ongoing Flowsheets (Taken 09/07/2023422) Related Risk Factors (Infection, Risk/Actual): chronic illness/condition immunosuppressed prolonged hospitalization Signs and Symptoms (Infection, Risk/Actual): lab value changes malaise cultures positive Goal: Infection Prevention/Resolution Description: Patient will demonstrate the desired outcomes by discharge/transition of care. Outcome: Ongoing Problem: Patient Care Overview Goal: Plan of Care Review Outcome: Ongoing Goal: Individualization & Mutuality Outcome: Ongoing Goal: Discharge Needs Assessment Outcome: Ongoing Goal: Interdisciplinary Rounds/Family Conf Outcome: Ongoing George is A & O x 4. VSS weaned down to room air over night, SpO2 remained greater than 90%. Patient reports dyspnea on exertion but reporting improving when at rest. Dry frequent cough. Tolerated Liposomal ampho B without reaction. Ambulating to restroom without difficulty. Safety maintained. Problem: Patient Care Overview Goal: Plan of Care Review Outcome: Ongoing Goal: Individualization & Mutuality Outcome: Ongoing Problem: Breathing Pattern Ineffective (Adult) Goal: Identify Related Risk Factors and Signs and Symptoms Description: Related risk factors and signs and symptoms are identified upon initiation of Human Response Clinical Practice Guideline (CPG) Outcome: Ongoing Goal: Effective Oxygenation/Ventilation Description: Patient will demonstrate the desired outcomes by discharge/transition of care. Outcome: Ongoing Problem: Infection, Risk/Actual (Adult) Goal: Identify Related Risk Factors and Signs and Symptoms Description: Related risk factors and signs and symptoms are identified upon initiation of Human Response Clinical Practice Guideline (CPG) Outcome: Ongoing Goal: Infection Prevention/Resolution Description: Patient will demonstrate the desired outcomes by discharge/transition of care. Outcome: Ongoing VSS, no tachycardia noted this shift. Respirations easy & unlabored on 2.5L via NC. Patient walked with PT today in hallway. Assessment unchanged at this time. Problem: Infection, Risk/Actual (Adult) Goal: Identify Related Risk Factors and Signs and Symptoms Description: Related risk factors and signs and symptoms are identified upon initiation of Human Response Clinical Practice Guideline (CPG) Outcome: Ongoing Flowsheets (Taken 08/30/2023 1047 by Romana Crow RN) Related Risk Factors (Infection, Risk/Actual): chronic illness/condition immunosuppressed medication effects Signs and Symptoms (Infection, Risk/Actual): body temperature changes chills diaphoresis lab value changes malaise Goal: Infection Prevention/Resolution Description: Patient will demonstrate the desired outcomes by discharge/transition of care. Outcome: Ongoing Flowsheets (Taken 09/05/2023 1833) Infection Prevention/Resolution: making progress toward outcome Problem: OT - Dressing Goal: Lower Body Dressing Description: Pt will complete LE dressing tasks with independence for improved ability to complete self-care activities. Outcome: Ongoing Problem: OT - ADLs Goal: Toileting Description: Pt will complete toileting task including clothing management with independence for improved ability to safely complete self-care activities. Outcome: Ongoing Problem: OT - Endurance Goal: Endurance Functional Mobilty Around Home Description: Pt will complete distance needed for common household mobility independently. Outcome: Ongoing Problem: OT - Other Goal: Energy Conservation Description: Pt will follow energy conservation techniques appropriately 100% of the time during ADLs and functional mobility to conserve energy and maximize functional performance. Outcome: Ongoing Problem: PT - Balance/Coordination/Neuro Re-Education Goal: Standing Dynamic/Static Balance Description: Pt will perform standing balance tasks for 15 minutes with modified independence with least restrictive device in order to improve functional mobility and safety with standing tasks. Outcome: Ongoing Problem: PT - Mobility Goal: Ambulation Description: Pt will ambulate 500 feet with least restrictive device with modified independence to improve ability to navigate home environment. Outcome: Ongoing Goal: Stairs Description: Pt will ascend/descend 10 stairs with one railings with standby assistance with least restrictive device to improve ability to perform functional mobility necessary in recommended discharge environment. Outcome: Ongoing Pulmonary/Critical Care Medicine Consult Progress Note Length of Stay: 7 days Impression & Recommendations: Geogre Styles is a 53 y.o. male with a history of liver and kidney transplant for hepatorenal syndrome on 03/2020 who presented on 08/28/2023 with 5 weeks of fever, cough, night sweats and weight loss. 09/02 bronchoscopy with BAL. Patient's fever, chills, and increased oxygen requirement likely a cytokine storm reaction from the antifungal treatment. Acute hypoxic respiratory failure Moderate-severe pulmonary histoplasmosis Recommendations: - continue antifungal medications - follow culture results from BAL - immunosuppression dosing per Transplant team - pulm will continue to follow Plan discussed with Dr. Diaz. Attending attestation to follow. Bony Louie Waters MS3 Interval History: George Styles is a 53 y.o. male with a history of liver and kidney transplant for hepatorenal syndrome on 03/2020 who presented on 08/28/2023 with 5 weeks of fever, cough, night sweats and weight loss. 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 Overnight, the patient experienced fever and chills likely 2/2 cytokine storm like reaction from treatment. Tmax of 101.2. Oxygen saturation in low 90s with 2 L NC. Currently being monitored in the PCU for symptomatic management. This morning, the patient was having episodes of desaturation which eventually increased to 9 L and now back to 8 L HFNC. Oxygen saturation in high 90s. During rounds, pt was not in distress but looked ill. Current plan was discussed with the patient. Objective Findings: Physical Exam: (Tmax 101.2) overnight Temp: [98 F (36.7 C)-101.2 F (38.4 C)] 98.2 F (36.8 C) Pulse (Heart Rate): [82-120] 86 Resp Rate: [16-30] 22 BP: (115-138)/(57-69) 122/64 O2 Sat (%): [84 %-98 %] 98 % Weight: [91.7 kg (202 lb 1.6 oz)] 91.7 kg (202 lb 1.6 oz) GEN: ill-appearing, diaphoretic, washcloth over forehead RESP: Clear to auscultation bilaterally. Normal effort. Nonproductive Cough. On 8L NC. CV: RRR EXTREMITIES: No LE edema NEURO: alert, responds appropriately to questions, no gross motor deficit. Lab Data: WBC/Hgb/Hct/Plts: 4.57/12.3/38.0/173 (09/04 615-09/04 957) Na/K+/Phos/Mg/Ca: 130/4.2/--/1.4/-- (09/04 615-09/04 957) Bun/Creat/Cl/CO2/Glucose: 15/1.22/104/18/159 (09/04 615-09/04 957) ABG shows respiratory alkalosis in setting of hypoxemia. (7.48/30/62/22) Relevant Microbiologic Data: CMV, EBV, BK, RVP, crytpo, legionella, HIV all negative. Urine histo negative. Serum aspergillus negative. Parvovirus negative. Atypical bacterial pneumonia negative. Fungal Cx/LRCx NGTD. Histoplasma/Blastomyces Ag positive Imaging CXR 08/28/23 General haziness in bilateral lungs. Lost left costophrenic angle. Lost distal end of left cardiac border. CT Chest 08/31/23 Consolidation in the superior segment of LLL. Diffuse centrilobular nodules in the lungs with miliary pattern. CXR 09/03/23 Likely residual fluid in the superior segment of LLL from BAL. CXR 09/04/23 Increase in opacity in left mid-lower lung. Lost left costophrenic angle. Increase opacity in right lower lung. Associated attestation - Crow Diaz MD - 09/04/2023 6:23 PM EDT PULMONARY ATTENDING ATTESTATION I have personally seen and examined Mr. Styles, and have independently reviewed pertinent labs/radiographs. I agree with the exam, assessment and plan as outlined by Dr. Loera, and actively participated in the medical decision making. Mr. Styles is a 53 y.o. male w/ PMH of ESRD and ESLD s/p liver-kidney transplant (2019) who presents with fever, cough, unintentional weight loss, and night sweats. His CT chest is notable for a dense infiltrate in LLL superior segment along with diffuse bilateral micro nodules in a miliary pattern. He underwent bronch w/ BAL in left lower lobe superior segment as well as right middle lobe lateral segment. The airway appeared normal without any purulent secretions, or abnormal mucosa. BALF is predominantly lymphocytic. Remained of infectious workup is positive for serum histo ag. This certainly fits the chest CT findings. He has been initiated on ampho-b and itra per Transplant ID. Tacro dose reduced by 50%. Remains on MMF. Follow-up remaining BAL studies. Wean FiO2 for SpO2 goal of 90-96%. He may get worse before getting better. Will continue to follow. Crow Diaz MD Pulmonary and Critical Care Medicine ABG drawn and sent Patient c/o SOB on assessment. Spot check pulse ox at 84%. Turned O2 up from 2L to 5L to keep patient at 90%. MD Kelly notified. 09/04/23 0720 Vital Signs Temp 100.9 F (38.3 C) Temp source Oral Pulse (Heart Rate) 114 Heart Rate Source Monitor Resp Rate 18 BP 126/68 MAP (mmHg) 93 mmHg BP Method Automatic BP Location Right arm BP Position Lying O2 Sat (%) 92 % MD Kelly notified of patient's temp & HR 114. Messaged Mainor Loomis, via [email or web address] secure chat, Temp 100.8. His tylenol order is not listed for temps though. Tati Charles RN Discussed the plan for antibiotics with the pt. Explained the method for giving Ampho B and the itraconazole. All questions answered. Discussed volume of ampho B with pharmacist. Per pharmacist, guidelines state it is made in the correct volume. Pulmonary/Critical Care Medicine Consult Progress Note Length of Stay: 6 days Impression & Recommendations: George Styles is a 53 y.o. male with a history of liver and kidney transplant for hepatorenal syndrome on 03/2020 who presented on 08/28/2023 with 5 weeks of fever, cough, night sweats and weight loss. Required increased O2 supplement overnight to 5 L, but 09/03 CXR does not show any acute findings. Residual fluid from the BAL in LLL might be causing increased oxygen need. Differential includes fungal pneumonia in setting of immunosuppression, atypical bacterial pneumonia. Less likely TB or malignancy including lymphoma. Acute hypoxic respiratory failure Diffuse pulmonary nodules Superior segment LLL consolidation Positive serum Histoplasma/Blastomyces Ag Recommendations: - Ordered flow cytometry to BAL sample to rule out malignancy - will discuss treatment plan for fungal infection with ID tomorrow - follow culture results from BAL - pulm will continue to follow Plan discussed with Dr. Diaz. Attending attestation to follow. Bony Waters MS3 Interval History: George Styles is a 53 y.o. male with a history of liver and kidney transplant for hepatorenal syndrome on 03/2020 who presented on 08/28/2023 with 5 weeks of fever, cough, night sweats and weight loss. Pt reports that a few weeks before symptoms started had been working in the garden pulling weeds for a short period of time. 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 Episode of tachycardia, desaturation to 88% at night. Increased oxygen supplement to 5L from 4L with improved saturation. EKG was normal. This morning, the patient was able breathing comfortably on 5 L NC. Reports no new symptoms. Persistent coughing. Discussed with the pt about the plan on waiting for the results to come back. CXR was ordered to rule out any acute problem given increased oxygen requirement and shows no acute findings. Objective Findings: Physical Exam: Temp: [97.9 F (36.6 C)-99.5 F (37.5 C)] 98.5 F (36.9 C) Pulse (Heart Rate): [62-138] 77 Resp Rate: [16-24] 16 BP: (111-162)/(58-74) 111/59 O2 Sat (%): [88 %-100 %] 89 % GEN: well-appearing, no acute distress HEENT: NC/AT, sclera white RESP: Normal effort. Nonproductive Cough. Bilateral inspiratory crackles. On 5L NC. CV: RRR EXTREMITIES: No LE edema NEURO: alert, responds appropriately to questions, no gross motor deficit. Lab Data: WBC/Hgb/Hct/Plts: 4.36/12.8/39.6/222 (09/03 402) Na/K+/Phos/Mg/Ca: 136/4.1/--/1.6/-- (09/03 402) Bun/Creat/Cl/CO2/Glucose: 17/1.20/104/24/112 (09/03 402) Relevant Microbiologic Data: CMV, EBV, BK, RVP, crytpo, legionella, HIV all negative. Urine histo negative. Serum aspergillus negative. Parvovirus negative. Atypical bacterial pneumonia negative. Fungal Cx/LRCx NGTD. Histoplasma/Blastomyces Ag positive Imaging CXR 08/28/23 General haziness in bilateral lungs. Lost left costophrenic angle. Lost distal end of left cardiac border. CT Chest 08/31/23 Consolidation in the superior segment of LLL. Diffuse centrilobular nodules in the lungs with miliary pattern. CXR 09/03/23 Likely residual fluid in the superior segment of LLL from BAL. Associated attestation - Crow Diaz MD - 09/03/2023 7:35 PM EDT PULMONARY ATTENDING ATTESTATION I have personally seen and examined Mr. Styles, and have independently reviewed pertinent labs/radiographs. I agree with the exam, assessment and plan as outlined by Dr. Loera, and actively participated in the medical decision making. Mr. Styles is a 53 y.o. male w/ PMH of ESRD and ESLD s/p liver-kidney transplant (2019) who presents with fever, cough, unintentional weight loss, and night sweats. His CT chest is notable for a dense infiltrate in LLL superior segment along with diffuse bilateral micro nodules in a miliary pattern. He underwent bronch w/ BAL in left lower lobe superior segment as well as right middle lobe lateral segment. The airway appeared normal without any purulent secretions, or abnormal mucosa. BALF is predominantly lymphocytic. Remained of infectious workup is positive for serum histo ag. This certainly fits the chest CT findings. He has been initiated on ampho-b and itra per Transplant ID. Tacro dose reduced by 50%. Remains on MMF. Follow-up remaining BAL studies. Will continue to follow. Crow Diaz MD Pulmonary and Critical Care Medicine Message Mainor L[place], via [email or web address] secure chat, Good evening, just an FYI, pt's HR went up to 138 and spo2 was 88% on 4L NC. Bumped him up to 5L NC, spo2 is now 93%, HR came back down to 104 right now. Got an EKG, Sinus Tach. Temp 99.5, day shift RN went ahead and gave his prn Tylenol. Tati Charles RN Pulmonary/Critical Care Medicine Consult Progress Note Length of Stay: 5 days Impression & Recommendations: George Styles is a 53 y.o. male with a history of liver and kidney transplant for hepatorenal syndrome on 03/2020 who presented on 08/28/2023 with 5 weeks of fever, cough, night sweats and weight loss. Infectious work-up has been negative so far. 08/28 CXR was unremarkable. 08/31 CT chest showed diffuse micronodules and consolidation in the superior segment of LLL. 09/02 Bronchoscopy with BAL was done for further evaluation. Pt tolerated the procedure well and breathing comfortably on 5L NC. Differential includes fungal pneumonia in setting of immunosuppression, bacterial pneumonia. Less likely TB or malignancy. Acute hypoxic respiratory failure Diffuse pulmonary nodules Superior segment LLL consolidation Recommendations: - follow culture results from BAL - follow pending histo, parvovirus Plan discussed with Dr. Diaz. Attending attestation to follow. Bony Waters Interval History: George Styles is a 53 y.o. male with a history of liver and kidney transplant for hepatorenal syndrome on 03/2020 who presented on 08/28/2023 with 5 weeks of fever, cough, night sweats and weight loss. Pt reports that a few weeks before symptoms started had been working in the garden pulling weeds for a short period of time. 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 This morning, the patient was able to tolerate bronchoscopy well. A good BAL sample was collected for culture. This afternoon, the patient was breathing comfortably on 5L NC. Patient reports some throat irritation after the procedure. Pt's oxygen saturation was around low 90s so increased oxygen supplement to 5L from 4L. Pt had couple questions which were answered. Lungs were CTAB. Objective Findings: Physical Exam: Temp: [97.9 F (36.6 C)-99.7 F (37.6 C)] 97.9 F (36.6 C) Pulse (Heart Rate): [63-105] 83 Resp Rate: [14-27] 20 BP: (108-157)/(55-87) 119/60 O2 Sat (%): [91 %-100 %] 93 % Weight: [91.8 kg (202 lb 6.4 oz)] 91.8 kg (202 lb 6.4 oz) GEN: well-appearing, no acute distress HEENT: NC/AT, sclera white RESP: clear to auscultation bilaterally with good air movement. Normal effort. Nonproductive Cough. CV: RRR, normal S1 and S2, no r/g/m, no JVD. EXTREMITIES: No LE edema, palpable DP and radial pulses MSK: no deformity. NEURO: alert, responds appropriately to questions, no gross motor deficit. Lab Data: WBC/Hgb/Hct/Plts: 4.12/12.9/39.9/210 (09/02 533) Na/K+/Phos/Mg/Ca: 136/4.3/--/1.7/-- (09/02 533) Bun/Creat/Cl/CO2/Glucose: 16/1.25/105/22/105 (09/02 533) Relevant Microbiologic Data: CMV, EBV, BK, RVP, crytpo, legionella, HIV all negative. I have personally reviewed and interpreted the following imaging studies with the pulmonary/critical care attending. Official reports included below: CXR 08/28/23 IMPRESSION: Prominent heart without pulmonary edema. Clear lungs. CT chest 08/31/23 IMPRESSION: 1. Superior segment of the left lower lobe consolidative pneumonia with trace fluid or mild thickening of the adjacent minor fissure. 2. Innumerable punctate centrilobular nodules throughout both lungs are likely infectious as well in an immunocompromised patient. 3. Few mildly enlarged lymph nodes in the AP window are likely reactive. 4. Coronary artery disease. Associated attestation - Crow Diaz MD - 09/02/2023 6:58 PM EDT PULMONARY ATTENDING ATTESTATION I have personally seen and examined Mr. Styles, and have independently reviewed pertinent labs/radiographs. I agree with the exam, assessment and plan as outlined by Dr. Loera, and actively participated in the medical decision making. Mr. Styles is a 53 y.o. male w/ PMH of ESRD and ESLD s/p liver-kidney transplant (2019) who presents with fever, cough, unintentional weight loss, and night sweats. His CT chest is notable for a dense infiltrate in LLL superior segment along with diffuse bilateral micro nodules in a miliary pattern. Differential for this in rather broad and mostly includes infections (atypical bacterial, mycobacterial, fungal). He underwent bronch w/ BAL in left lower lobe superior segment as well as right middle lobe lateral segment. The airway appeared normal without any purulent secretions, or abnormal mucosa. Follow-up BAL studies. If additional studies are needed, they can be added on to the sample that the lab has. Defer antimicrobial regiment the Transplant ID specialist. We will continue to follow. Crow Diaz MD Pulmonary and Critical Care Medicine Called report to bedside nurse 60in 25 out BAL to RML LLL 90in 30 out now RML being done BAL LLL superior segment Sats 96% on non rebreather 15L.... Tco2 [address] Loera here also (cotton farmer) Dr. Diaz aware of pt's increased oxygen needs (arrived here on 4L n/c and sats only 91%) on hi flow oxygen at 7L is 94%..... Dr. Diaz asked that pt be put on non rebreather 15L this done and pt. Is now 97% Problem: Infection, Risk/Actual (Adult) Goal: Identify Related Risk Factors and Signs and Symptoms Description: Related risk factors and signs and symptoms are identified upon initiation of Human Response Clinical Practice Guideline (CPG) Outcome: Ongoing Flowsheets (Taken 08/30/20231046) Related Risk Factors (Infection, Risk/Actual): chronic illness/condition immunosuppressed medication effects Signs and Symptoms (Infection, Risk/Actual): body temperature changes chills diaphoresis lab value changes malaise Goal: Infection Prevention/Resolution Description: Patient will demonstrate the desired outcomes by discharge/transition of care. Outcome: Ongoing Flowsheets (Taken 08/30/20231046) Infection Prevention/Resolution: making progress toward outcome Problem: Infection, Risk/Actual (Adult) Intervention: Manage Suspected/Actual Infection Flowsheets (Taken 08/30/20231046) Fever Reduction/Comfort Measures: fluid intake increased lightweight bedding lightweight clothing medication administered Infection Management: aseptic technique maintained Intervention: Prevent Infection/Maximize Resistance Flowsheets Taken 08/30/2023 0748 Airway/Ventilation Management: pulmonary hygiene promoted Taken 08/29/2023 1046 Sleep/Rest Enhancement: regular sleep/rest pattern promoted Sent a secure [employer] chat to Rosi LUZ concerning patient's temp of 100.4 with no PRNs on board 2339: 650 mg of PRN tylenol given Problem: Breathing Pattern Ineffective (Adult) Goal: Identify Related Risk Factors and Signs and Symptoms Description: Related risk factors and signs and symptoms are identified upon initiation of Human Response Clinical Practice Guideline (CPG) Outcome: Ongoing Flowsheets (Taken 08/29/2023 104) Related Risk Factors (Breathing Pattern Ineffective): underlying condition Signs and Symptoms (Breathing Pattern Ineffective): activity intolerance breathing pattern altered Goal: Effective Oxygenation/Ventilation Description: Patient will demonstrate the desired outcomes by discharge/transition of care. Outcome: Ongoing Flowsheets (Taken 08/29/2023 104) Effective Oxygenation/Ventilation: making progress toward outcome Problem: Breathing Pattern Ineffective (Adult) Goal: Anxiety/Fear Reduction Description: Patient will demonstrate the desired outcomes by discharge/transition of care. Outcome: Progressing Toward Goal Flowsheets (Taken 08/29/2023 104) Anxiety/Fear Reduction: making progress toward outcome I certify that this patient requires inpatient services at this time. I anticipate the expected length of stay will include at least two midnights. Inpatient services are due to the following medical concerns prolonged fever in setting of immunosuppression, hypoxia. Plans for post hospitalization care will be discharge to home. Merlene Aranda MD Internal Medicine-Pediatrics, PGY-2 Mr. Styles was admitted to [address] [place] [address]. On admission to R[facility], from home a dual RN initial assessment of skin condition was performed by Erica Houston RN and Wilma Newcomer, RN. Skin Assessment: Skin within defined limits:Yes Jose Score: 20 LDA Added:No Based on fall prevention risk stratification tool, patient is at low risk for fall. The following interventions were implemented: Low Risk 0-16 GREEN Call light plugged into bed Fall Color placed above door Gait belt at bedside Education on falls provided. Med. Risk 18-38 YELLOW Call light plugged into bed Fall Color placed above door Gait belt at bedside Education on falls provided Initiate Bed-Exit Alarm. High Risk 40-54 RED Call light plugged into bed Fall Color placed above door Gait belt at bedside Education on falls provided Initiate Bed-Exit Alarm Move patient to room closest to nurses station when available. documented in [facility] History of Present illness Narrative Provided follow-up emotional and spiritual support. Patient shared about rosemary of discharge and looking forward to seeing family Sheeter Waxer Operator provided: - Supportive presence - Active listening - Validation of feelings/emotions Patient encouraged to request a machines technician as needed. Chaplains are available in-house 24 hours a day and 7 days a week. For urgent matters in [facility], please page [phone]. If the request is not urgent, please enter a consult. Consults are responded to within 24 hours. Senior Staff Sheeter Waxer Operator Angie Singh Mdiv, [facility] [place] [phone] [email or web address] 22/06 On-call Kirk: [phone] 22/06 Pager ,[facility], and Brock Hernandez Pager [phone] 09/11/23 3725 Clinical Encounter Type Visited With Patient Visit Type Follow-up Pastoral Time Spent 15 min Referral Other (See Comment) (rounding) Spiritual Assessment Spiritual Observation Spirituality helpful Emotional Observation Coping well Hope Observation Specific hope focus Support Observation By Family Interventions Provided Active listening;Supportive presence Facilitated Verbalization of feelings Explored Expectations Director Employee Communications Education Director Employee Communications Service Available Yes Educated Patient Plan of Care Continue Visiting PRN Images from the original note were not included. [facility] Note: Non-Verbal Med Rec [facility] received the following discharge prescription(s): Total cost is $0. I have reviewed the Discharge Rx Reconciliation Report. The discharge prescription(s) will be delivered to the patient on 09/11/2023. Dimitrios Gurrola RPh,PharmD Specialty ([place]) [phone] [facility] [phone] [facility] Bedside Delivery [phone] [facility] [phone] [facility] Bedside Delivery [phone] [place] [phone] [facility] Bedside Delivery [phone] [place] [phone] [place] [phone] Internal Medicine Daily Progress Note Patient: George Styles, 1970, [id number] Physician: Evan Kelly MD, PGY-1, TM1 service Subjective/Interval History: Patient continues to require oxygen overnight for desaturations. With insurance limitations, only accepting agency to provide home oxygen backed out. After calling them to discuss, Lynn stated she would be willing to have patient drive to their facility to pick[employer] supplies, however they close at 5pm. As patient would likely not be able to reach that facility in time, we will defer until tomorrow. As patient requires oxygen for discharge, he will need to stay overnight. It appears as though insurance requires this option rather than alternatives of accepting other home oxygen companies. Patient was saturating appropriately on room air when sitting at edge of bed without shortness of breath. Objective: Vitals: 09/10/23 1550 BP: 128/73 Pulse: 72 Resp: 18 Temp: 97.7 F (36.5 C) SpO2: 94% O2 Device: room air (09/10/23 1550) Flow (L/min): 1 (09/10/23 1328) Gen: Alert, Awake, NAD, tired-appearing Eyes: EOMI, no icterus ENT: MMM, trachea midline Resp: Bilateral clear to auscultation, non labored breathing on room air Cardio: RRR, normal S1, S2, no M/R/G. No JENSEN. GI: S/NT/ND, NABS MSK: No joint effusions or erythema: Skin: No jaundice or rash Neuro: Moving all 4 extremities spontaneously Psych: Appropriate for clinical situation. Data Review: WBC/Hgb/Hct/Plts: 6.52/12.7/40.0/225 (09/10 626) Na/K+/Phos/Mg/Ca: 140/4.4/--/1.9/-- (09/10 626) Bun/Creat/Cl/CO2/Glucose: /.27/111/20/100 (09/10 626) Lab Results Component Value Date SPGRVTYUR 1.015 08/29/2023 GLUCOSEURINE Negative 08/29/2023 KETONESURINE Negative 08/29/2023 BLOODURINE Trace (A) 08/29/2023 NITRITESURIN Negative 08/29/2023 LEUKOCESTUR Negative 08/29/2023 WBCURINE 0 - 5 08/29/2023 RBCURINE 3-5 (A) 08/29/2023 BACTERIAURIN ABSENT 08/29/2023 Blood cultures 08/28 NGTD Histo/Blasto positive. Ag 5.3 XR CHEST PORTABLE Final Result IMPRESSION: Waxing and waning airspace opacities in the left lung likely infectious/inflammatory process. CHEST PORTABLE Final Result IMPRESSION: Increasing focal consolidation in the left suprahilar region, likely corresponding to pneumonia seen on recent chest CT. I personally viewed and interpreted these images and I have reviewed and approved this report. ABDOMEN/PELVIS WITHOUT CONTRAST Final Result IMPRESSION: 1. Interval removal of nephrostomy tube from right lower quadrant transplant kidney. No stones or hydronephrosis. 2. New prominent to borderline enlarged upper abdominal and retroperitoneal nodes lymph nodes as above, which are nonspecific but may be secondary to a lymphoproliferative disorder or granulomatous process.. Recommend clinical correlation. 3. Prior liver transplant without focal hepatic lesion. No ascites or peritransplant fluid collections. Prominent perigastric collateral vessels, similar to prior. 4. Groundglass attenuation in the lung bases with the basilar atelectatic changes 5. Nonobstructive bowel gas pattern. Normal appendix 6. No abdominopelvic ascites. I personally viewed and interpreted these images and I have reviewed and approved this report. CHEST WITHOUT CONTRAST Final Result IMPRESSION: 1. Superior segment of the left lower lobe consolidative pneumonia with trace fluid or mild thickening of the adjacent minor fissure. 2. Innumerable punctate centrilobular nodules throughout both lungs are likely infectious as well in an immunocompromised patient. 3. Few mildly enlarged lymph nodes in the AP window are likely reactive. 4. Coronary artery disease. RENAL TRANSPLANT SCAN Final Result IMPRESSION: Questionable stones in the transplant kidney with normal resistive indices and no hydronephrosis. Possible bladder stone. If confirmation of stones is desired, consider noncontrast CT scanning. I personally viewed and interpreted these images and I have reviewed and approved this report. CHEST PORTABLE Final Result IMPRESSION: Prominent heart without pulmonary edema. Clear lungs. CHEST WITHOUT CONTRAST (Results Pending) Assessment/Plan: George Styles is a 53 y.o. 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 His post-transplant course was noteworthy for nephrostomy tube (05/17/2022-09/10/2022) due to concern for ureteral stone. 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 Patient with recurrent fevers of unknown origin starting 07/23. CT Chest with findings as above. - Blood cultures NGTD - immunocompromised respiratory panel all negative - Infectious Disease consulted, appreciate recommendations - PO itraconazole 200mg BID - trough in 10-14d (may be as outpt) -will need to adjust IS dosing 2/2 itra - Pulmonology consulted - bronchoscopy performed 09/02 - signed off - recommend repeat CT Chest in 8-12 weeks Acute Hypoxic Respiratory Insufficiency QHS Patient requiring 3-4L NC during admission. Does not report oxygen at home. He has a 23 pack year smoking history, however quit and does not carry a diagnosis of COPD. Likely related to CT findings with workup as below. He briefly required non-rebreather and high flow nasal cannula when getting bronchoscopy, indicating patient likely has low reserve. 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 He again had increased oxygen requirements on 10/6 am that resolved with repositioning and supportive care. Oxygen desaturations likely related to mucous plugging. Patient has saturated appropriately on room air and has been able to perform a 6min walk test on room air. - continue to monitor - oxygen as needed to maintain saturations >92% - home oxygen for support - incentive spirometry - histo/blasto treatment as above Acute Kidney Injury with Kidney Transplant, resolved: Patient is s/p combined liver/kidney transplant in 04/13/20. Prior to presentation, patient takes tacrolimus 0.5mg BID and mycophenolate 540mg BID for immunosuppression. Baseline creatinine appears to be 1.1-1.4, though variable. Bmup in creatinine today. Patient on amphotericin so keeping a close monitor and will give 500cc LR bolus. - Current immunosuppression: tacrolimus 0.2mg every other day and mycophenolate 360mg BID - UA with trace blood and 3-5 Rbc on admission - Transplant renal US with possible stones - CT A/P: Right lower quadrant transplant kidney is unremarkable - Recent testing prior to admission: CMV serum PCR negative, BK serum negative, EBV negative - Renally dose all medications as needed. - continue to monitor in setting of amphotericin treatment S/p Liver Transplant: combined liver/kidney transplant in 04/13/20. Patient on immunosuppression as above. - Immunosuppresion management as above - Hepatic function panel unremarkable on admission Chronic Medical Conditions Essential Hypertension- controlled - continue home amlodipine 5mg, holding losartan 50mg BID CAD: non-obstructive CAD on [facility] 2018. - continue home aspirin 81mg daily, holding atorvastatin 20mg daily Gout: continue home allopurinol 200mg daily BPH: continue home flomax 0.4mg daily DVT PPX: SQH Code Status: Full Code Disposition: Pending clinical course. Anticipate eventual discharge home. Discussed with team and attending, Kevin Sage MD, on rounds. Signed, Evan Kelly MD Attending Physician Addendum I saw and personally examined Mr. Styles with the renal team. I discussed the findings and plan of the case. I agree with the history, physical examination, and medical decisions as outlined above. VS Temp: [97.6 F (36.4 C)-98 F (36.7 C)] 97.6 F (36.4 C) Pulse (Heart Rate): [65-96] 80 Resp Rate: [16-18] 18 BP: (107-147)/(57-73) 147/72 O2 Sat (%): [90 %-94 %] 90 % Weight: [78 kg (172 lb)-92.7 kg (204 lb 4.8 oz)] 92.7 kg (204 lb 4.8 oz) I/O last 3 completed shifts: In: 1000 [P.O.:1000] Out: 1350 [Urine:1350] I/O this shift: In: 550 [P.O.:550] Out: 500 [Urine:500] LABS Lab Results Component Value Date WBC 6.52 09/10/2023 HGB 12.7 (L) 09/10/2023 PLATELET 225 09/10/2023 Lab Results Component Value Date SODIUM 140 09/10/2023 POTASSIUM 4.4 09/10/2023 CHLORIDE 111 (H) 09/10/2023 CO2 20 (L) 09/10/2023 BUN 12 09/10/2023 CREATSERUM 1.27 09/10/2023 GLUCOSE 100 (H) 09/10/2023 Lab Results Component Value Date CALCIUM 9.2 08/17/2023 PHOSPHORUS 3.8 09/09/2023 Lab Results Component Value Date CREATSERUM 1.27 09/10/2023 CREATSERUM 1.03 09/09/2023 CREATSERUM 1.14 09/08/2023 CREATSERUM 1.48 08/17/2023 CREATSERUM 1.04 07/03/2023 CREATSERUM 1.17 04/28/2023 CREATSERUM 5.05 (H) 11/19/2018 Kevin Sage MD, SERA [employer] Supervisor of Clinical Medicine [facility] Images from the original note were not included. Final Discharge Planning and Transportation Final Discharge Planning Discharge Disposition: Home Services at Discharge: Outpatient clinical services (ie: lab draws, transfusions, injectables) (Home Oxygen by [facility]) Selected Continued Care - Admitted Since 08/28/2023 Durable Medical Equipment Coordination complete. Service Provider Selected Services Address Phone Fax Patient Preferred [employer] Durable Medical Equipment [id number] [facility] [id number] Internal Comment last updated by Lora Alexander RN 09/10/2023 1334 Correct contact information: [employer] [address] [place] [address] [place] [address] car rental sales assistant- you do not need to call at discharge, I already notified the company. Addendum 1524 [facility] notified this CM they are out of patient's insurance area and will not be able to service this patient at time of discharge. Provider notified. Addendum [phone] Dr Kelly called [facility] spoke to Lynn and she said they are willing to accept patient if the patient would drive to the [place] office and picket labor union the supplies. Patient is willing to do so, but since the office closes today he will have to stay over night. Plan Plan: Return home with new set up of nightly oxygen Patient/Family In Agreement With Plan: yes Transportation Transport Request Mode of Transfer: Private Vehicle CM had conversation with patient/caregiver related to specialty care follow-up. 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 Was eventually changed to tacrolimus granules on discharge so that tacrolimus dosage could be lowered with rising levels - Myfortic decreased to 360 mg BID in light of histoplasmosis Infectious disease - Patient found to have histoplasmosis and was started on amphotericin B 3 mg/kg from 09/03-09/08. Serum creatinine unchanged during treatment, but required aggressive potassium and magnesium supplementation - Itraconazole loaded on 09/03 and will require a level outpatient. Required a prior authorization which was approved and patient does not have a co-payment Discharge medications Maintenance immunosuppression: Mycophenolate sodium: 360 mg mouth twice daily. Reduced from 540 mg BID due to histoplasmosis Tacrolimus: 0.2 mg by mouth on 09/12, frequency of every other day with repeat level on 09/14 Last level(s): Lab Results Component Value Date TACROLIMUS 11.8 09/10/2023 TACROLIMUS 9.2 09/09/2023 TACROLIMUS 8.5 09/08/2023 Last dose change: on discharge to the granules, to take on 09/12 and dose is 0.2 mg Trough goal: 4-6 ng/mL Immunosuppression modified due to: Histoplasmosis and DDI with itraconazole Medication additions/changes: Lipitor on hold with itraconazole Items for clinic follow up: - Lipid follow up with atorvastatin on hold - Itraconazole level and, if needed, a dose adjustment Name: Matt Kramer RPh,Frankie Phone: [phone] Date/Time: 09/10/2023 11:33 AM This CM sent referral via [employer] for O2 concentrator to [facility] Start date today Timer set for 1330 [facility] / [facility] [employer] Addendum [phone] One accepting company reserved in [address] [place] [address] [place] [address] Lora Colón RN, MSN, CCM, CMCN Clinical Clinical Administrative Coordinator- [facility] Transplant #[phone] NUTRITION FOLLOW-UP Nutrition Plan of Care: 1. Continue current diet order. 2. No oral supplements warranted at this time. 3. Monitor for significant weight changes. Monitor GI, skin integrity. 4. Monitor and encourage po intakes with goal of average po being 75-100%. 5. registered vascular technologist (rvt) to follow. ___ Met with patient today at bedside wearing mask. Current Diet Orders Procedures DIET REGULAR Standing Status: Standing Number of Occurrences: 1 Appetite: good Per doc flow sheet: Date Breakfast Lunch Dinner 09/08 -% 75% -% 09/07 100% 75% 100% 09/06 100% 100% 100% 09/05 100% 100% -% 09/04 -% -% -% Po average over past five days is 94% of 9 meals. Admit wt: 207 lb Last recorded : 09/08/2023* Weight: 79.8 kg (208 lb) Height: 170.2 cm (5' 7.01 ) no significant weight changes. Net IO Since Admission: -650.63 mL [09/09/23 1518] GI: Last Bowel Movement: 09/09/23 Skin Jose Score: 20 STAND skin bundle not initiated Active Wounds: Incision (Adult, Pediatric) 04/12/20 2308 upper abdomen (1245) Edema: - Summary : Pt remains at nutrition risk due to admit diagnosis, chronic conditions, and pmhx. Met with pt today and he states his appetite is good. Po average over past five days is 94% of 9 meals. No report of n/v/c/d identified. Pt without significant weight changes. No oral supplement warranted at this time. Will continue to monitor. RHIANNON [place]R Pager:[phone] Transplant Infectious Disease (Team 3) Progress Note Date of Service: 09/09/23 Subjective: wearing oxygen at time of my eval, though says just needs whne he sleeps Physical Exam: Temp: [97.6 F (36.4 C)-98.1 F (36.7 C)] 97.7 F (36.5 C) Pulse (Heart Rate): [65-73] 73 Resp Rate: [16] 16 BP: (119-150)/(62-69) 127/62 O2 Sat (%): [92 %-95 %] 93 % Weight: [79.8 kg (175 lb 14.4 oz)-94.3 kg (208 lb)] 79.8 kg (175 lb 14.4 oz) General: NAD, lying comfortably in bed HENT: NC/AT, normal dentition, moist mucus membranes Eyes: EOMI, anicteric sclerae, no conjunctival erythema Respiratory: b/l rhonchi Cardiovascular: RRR, S1 S2, no murmurs Abdomen: soft, nontender, nondistended Skin: warm and dry, no rashes or ulcerations Psychiatric: appropriate affect, alert and oriented x3 Body mass index is 27.54 kg/m . Current Medications: Acetaminophen 325 mg Oral Q24H Allopurinol 200 mg Oral Daily amLODIPine 5 mg Oral Q24H amphotericin B LIPOSOME (AMBISOME) IVPB 3 mg/kg (Adjusted) Intravenous Q24H aspirin 81 mg Oral Daily [Held by provider] Atorvastatin 20 mg Oral QHS diphenhydrAMINE 25 mg Oral Q24H faMOTIdine 20 mg Oral BID Gabapentin 400 mg Oral QHS heparin 5,000 Units Subcutaneous Q8H Itraconazole 200 mg Oral Q12HNS magnesium oxide 800 mg Oral Daily Mycophenolate sodium 360 mg Oral Q12HNS [START ON 09/10/2023] Potassium chloride 40 mEq Oral Daily Sodium chloride 0.9% 500 mL Intravenous Q24H Sodium chloride 0.9% 500 mL Intravenous Q24H Sulfamethoxazole-trimethoprim 1 tablet Oral Once per day on Thu tacrolimus 0.25 mg Oral Daily Tamsulosin HCl 0.4 mg Oral Daily Labs(personally reviewed): No leukocytosis Serum Histo blasto ag pos 5.3 Urine histo neg BAL histo ag neg Micro (personally rewiewed): RVP negative Imaging (personally reviewed): 08/31 CT C/A/P 1. Superior segment of the left lower lobe consolidative pneumonia with trace fluid or mild thickening of the adjacent minor fissure. 2. Innumerable punctate centrilobular nodules throughout both lungs are likely infectious as well in an immunocompromised patient. 3. Few mildly enlarged lymph nodes in the AP window are likely reactive. 4. Coronary artery disease. 1. Interval removal of nephrostomy tube from right lower quadrant transplant kidney. No stones or hydronephrosis. 2. New prominent to borderline enlarged upper abdominal and retroperitoneal nodes lymph nodes as above, which are nonspecific but may be secondary to a lymphoproliferative disorder or granulomatous process.. Recommend clinical correlation. 3. Prior liver transplant without focal hepatic lesion. No ascites or peritransplant fluid collections. Prominent perigastric collateral vessels, similar to prior. 4. Groundglass attenuation in the lung bases with the basilar atelectatic changes 5. Nonobstructive bowel gas pattern. Normal appendix 6. No abdominopelvic ascites. 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 Interestingly serum histo/blasto ag is positive but urine and BAL are negative. Maybe this is blasto, though believe there is still crossreaction with BAL and urine antigens. Markedly improved with course of IV ampho. I think we can discharge with plan for him to get an itraconazole level next week and followup outpatient with ID. Recommendations: -stop famotidine -stop amphoB -continue PO itraconazole liquid 200mg q12h -itraconazole trough next week as an outpatient - can be done at same place as his usual transplant labs -ID follow up - 09/23 Transplant ID (Team 3) will sign off. Please Epic message or page [phone] with questions. Evan White DO Transplant Infectious Diseases Internal Medicine Daily Progress Note Patient: George Styles, 1970, [id number] Physician: Evan Kelly MD, PGY-1, TM1 service Subjective/Interval History: No acute events overnight. Patient continues to saturate appropriately on room air. He was also able to walk for 6min yesterday without supplemental oxygen. He reports feeling overall improved and all questions answered by the team. Objective: Vitals: 09/09/23215 BP: 119/62 Pulse: 65 Resp: 16 Temp: 97.6 F (36.4 C) SpO2: 93% O2 Device: room air (09/08/231951) Flow (L/min): 1 (09/08/23 1008) Gen: Alert, Awake, NAD, tired-appearing Eyes: EOMI, no icterus ENT: MMM, trachea midline Resp: Bilateral clear to auscultation, non labored breathing on room air Cardio: RRR, normal S1, S2, no M/R/G. No JENSEN. GI: S/NT/ND, NABS MSK: No joint effusions or erythema: Skin: No jaundice or rash Neuro: Moving all 4 extremities spontaneously Psych: Appropriate for clinical situation. Data Review: Na/K+/Phos/Mg/Ca: 141/4.0/3.8/1.6/-- (09/09 557) Bun/Creat/Cl/CO2/Glucose: 10.03/113/18/106 (09/09 557) Lab Results Component Value Date SPGRVTYUR 1.015 08/29/2023 GLUCOSEURINE Negative 08/29/2023 KETONESURINE Negative 08/29/2023 BLOODURINE Trace (A) 08/29/2023 NITRITESURIN Negative 08/29/2023 LEUKOCESTUR Negative 08/29/2023 WBCURINE 0 - 5 08/29/2023 RBCURINE 3-5 (A) 08/29/2023 BACTERIAURIN ABSENT 08/29/2023 Blood cultures 08/28 NGTD Histo/Blasto positive. Ag 5.3 XR CHEST PORTABLE Final Result IMPRESSION: Waxing and waning airspace opacities in the left lung likely infectious/inflammatory process. CHEST PORTABLE Final Result IMPRESSION: Increasing focal consolidation in the left suprahilar region, likely corresponding to pneumonia seen on recent chest CT. I personally viewed and interpreted these images and I have reviewed and approved this report. ABDOMEN/PELVIS WITHOUT CONTRAST Final Result IMPRESSION: 1. Interval removal of nephrostomy tube from right lower quadrant transplant kidney. No stones or hydronephrosis. 2. New prominent to borderline enlarged upper abdominal and retroperitoneal nodes lymph nodes as above, which are nonspecific but may be secondary to a lymphoproliferative disorder or granulomatous process.. Recommend clinical correlation. 3. Prior liver transplant without focal hepatic lesion. No ascites or peritransplant fluid collections. Prominent perigastric collateral vessels, similar to prior. 4. Groundglass attenuation in the lung bases with the basilar atelectatic changes 5. Nonobstructive bowel gas pattern. Normal appendix 6. No abdominopelvic ascites. I personally viewed and interpreted these images and I have reviewed and approved this report. CHEST WITHOUT CONTRAST Final Result IMPRESSION: 1. Superior segment of the left lower lobe consolidative pneumonia with trace fluid or mild thickening of the adjacent minor fissure. 2. Innumerable punctate centrilobular nodules throughout both lungs are likely infectious as well in an immunocompromised patient. 3. Few mildly enlarged lymph nodes in the AP window are likely reactive. 4. Coronary artery disease. RENAL TRANSPLANT SCAN Final Result IMPRESSION: Questionable stones in the transplant kidney with normal resistive indices and no hydronephrosis. Possible bladder stone. If confirmation of stones is desired, consider noncontrast CT scanning. I personally viewed and interpreted these images and I have reviewed and approved this report. CHEST PORTABLE Final Result IMPRESSION: Prominent heart without pulmonary edema. Clear lungs. CHEST WITHOUT CONTRAST (Results Pending) Assessment/Plan: George Styles is a 53 y.o. 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 His post-transplant course was noteworthy for nephrostomy tube (05/17/2022-09/10/2022) due to concern for ureteral stone. 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 Patient with recurrent fevers of unknown origin starting 07/23. CT Chest with findings as above. - Blood cultures NGTD - immunocompromised respiratory panel all negative - Infectious Disease consulted, appreciate recommendations - liposomal ampho B 3mg/kg q24h - PO itraconazole BID - trough in 10-14d (may be as outpt) -will need to adjust IS dosing 2/2 itra - Pulmonology consulted - bronchoscopy performed 09/02 - signed off - recommend repeat CT Chest in 8-12 weeks Acute Hypoxic Respiratory Insufficiency, resolved Patient requiring 3-4L NC during admission. Does not report oxygen at home. He has a 23 pack year smoking history, however quit and does not carry a diagnosis of COPD. Likely related to CT findings with workup as below. He briefly required non-rebreather and high flow nasal cannula when getting bronchoscopy, indicating patient likely has low reserve. 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 He again had increased oxygen requirements on 106 am that resolved with repositioning and supportive care. Oxygen desaturations likely related to mucous plugging. Patient has saturated appropriately on room air and has been able to perform a 6min walk test on room air. - continue to monitor - oxygen as needed to maintain saturations >92% - incentive spirometry - histo/blasto treatment as above Acute Kidney Injury with Kidney Transplant, resolved: Patient is s/p combined liver/kidney transplant in 04/13/20. Prior to presentation, patient takes tacrolimus 0.5mg BID and mycophenolate 540mg BID for immunosuppression. Baseline creatinine appears to be 1.1-1.4, though variable. Bmup in creatinine today. Patient on amphotericin so keeping a close monitor and will give 500cc LR bolus. - Current immunosuppression: tacrolimus 0.25mg daily and mycophenolate 360mg BID - UA with trace blood and 3-5 Rbc on admission - Transplant renal US with possible stones - CT A/P: Right lower quadrant transplant kidney is unremarkable - Recent testing prior to admission: CMV serum PCR negative, BK serum negative, EBV negative - Renally dose all medications as needed. - continue to monitor in setting of amphotericin treatment S/p Liver Transplant: combined liver/kidney transplant in 04/13/20. Patient on immunosuppression as above. - Immunosuppresion management as above - Hepatic function panel unremarkable on admission Chronic Medical Conditions Essential Hypertension- controlled - continue home amlodipine 5mg, holding losartan 50mg BID CAD: non-obstructive CAD on [facility] 2019. - continue home aspirin 81mg daily, holding atorvastatin 20mg daily Gout: continue home allopurinol 200mg daily BPH: continue home flomax 0.4mg daily DVT PPX: SQH Code Status: Full Code Disposition: Pending clinical course. Anticipate eventual discharge home. Discussed with team and attending, Kevin Sage MD, on rounds. Signed, Evan Kelly MD Transplant Infectious Disease (Team 3) Progress Note Date of Service: 09/08/23 Subjective: wearing oxygen at time of my eval, though says just needs whne he sleeps Physical Exam: Temp: [97.7 F (36.5 C)-97.9 F (36.6 C)] 97.7 F (36.5 C) Pulse (Heart Rate): [62-81] 72 Resp Rate: [16-23] 16 BP: (114-133)/(55-65) 133/65 O2 Sat (%): [94 %-97 %] 96 % Weight: [94 kg (207 lb 4.8 oz)] 94 kg (207 lb 4.8 oz) General: NAD, lying comfortably in bed HENT: NC/AT, normal dentition, moist mucus membranes Eyes: EOMI, anicteric sclerae, no conjunctival erythema Respiratory: b/l rhonchi Cardiovascular: RRR, S1 S2, no murmurs Abdomen: soft, nontender, nondistended Skin: warm and dry, no rashes or ulcerations Psychiatric: appropriate affect, alert and oriented x3 Body mass index is 32.46 kg/m . Current Medications: Acetaminophen 325 mg Oral Q24H Allopurinol 200 mg Oral Daily amLODIPine 5 mg Oral Q24H amphotericin B LIPOSOME (AMBISOME) IVPB 3 mg/kg (Adjusted) Intravenous Q24H aspirin 81 mg Oral Daily [Held by provider] Atorvastatin 20 mg Oral QHS diphenhydrAMINE 25 mg Oral Q24H faMOTIdine 20 mg Oral BID Gabapentin 400 mg Oral QHS heparin 5,000 Units Subcutaneous Q8H Itraconazole 200 mg Oral Q12HNS magnesium oxide 800 mg Oral Daily Mycophenolate sodium 360 mg Oral Q12HNS [START ON 09/09/2023] Potassium chloride 20 mEq Oral Daily Sodium chloride 0.9% 500 mL Intravenous Q24H Sodium chloride 0.9% 500 mL Intravenous Q24H Sulfamethoxazole-trimethoprim 1 tablet Oral Once per day on Thu [START ON 09/09/2023] tacrolimus 0.25 mg Oral Daily Tamsulosin HCl 0.4 mg Oral Daily Labs(personally reviewed): No leukocytosis Serum Histo blasto ag pos 5.3 Urine histo neg BAL histo ag neg Micro (personally rewiewed): RVP negative Imaging (personally reviewed): 08/31 CT C/A/P 1. Superior segment of the left lower lobe consolidative pneumonia with trace fluid or mild thickening of the adjacent minor fissure. 2. Innumerable punctate centrilobular nodules throughout both lungs are likely infectious as well in an immunocompromised patient. 3. Few mildly enlarged lymph nodes in the AP window are likely reactive. 4. Coronary artery disease. 1. Interval removal of nephrostomy tube from right lower quadrant transplant kidney. No stones or hydronephrosis. 2. New prominent to borderline enlarged upper abdominal and retroperitoneal nodes lymph nodes as above, which are nonspecific but may be secondary to a lymphoproliferative disorder or granulomatous process.. Recommend clinical correlation. 3. Prior liver transplant without focal hepatic lesion. No ascites or peritransplant fluid collections. Prominent perigastric collateral vessels, similar to prior. 4. Groundglass attenuation in the lung bases with the basilar atelectatic changes 5. Nonobstructive bowel gas pattern. Normal appendix 6. No abdominopelvic ascites. 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 Interestingly serum histo/blasto ag is positive but urine and BAL are negative. Maybe this is blasto, though believe there is still crossreaction with BAL and urine antigens. Has responded well to treatment of mod-severe histo, has had a few desats requiring O2 along with when he is sleeping. Likely nearing dischargable state - could consider 6MW or walk of life test to evaluate his oxygen need Recommendations: -continue liposomal ampho B 3mg/kg q24h -follow cr, lytes -continue PO itraconazole liquid 200mg q12h -trough in 10-14d (may be as outpt) -consider 6MW or walk of life Transplant ID (Team 3) will continue to follow. Please Epic message or page [phone] with questions. Evan White DO Transplant Infectious Diseases Internal Medicine Daily Progress Note Patient: George Styles, 1970, [id number] Physician: Laurel Serrano MD, PhD, PGY-3, TM1 service Subjective/Interval History: No acute events overnight. Patient feeling well this morning, noting improved shortness of breath. Only feeling shortness of breath when up and moving. Has been needing O2 at night, but denies history of DARLENE or snoring. Objective: Vitals: 09/09/23 0216 BP: 119/62 Pulse: 65 Resp: 16 Temp: 97.6 F (36.4 C) SpO2: 93% O2 Device: room air (09/08/231951) Flow (L/min): 1 (09/08/23 1008) Gen: Alert, Awake, laying flat in bed, NAD, tired-appearing Eyes: EOMI, no icterus ENT: MMM, trachea midline Resp: Bilateral clear to auscultation, non labored breathing, Nc in Place- 2L Cardio: RRR, normal S1, S2, no M/R/G. No JENSEN. GI: S/NT/ND, NABS MSK: No joint effusions or erythema: Skin: No jaundice or rash Neuro: Moving all 4 extremities spontaneously Psych: Appropriate for clinical situation. Data Review: Na/K+/Phos/Mg/Ca: 141/4.0/3.8/1.6/-- (09/09 557) Bun/Creat/Cl/CO2/Glucose: 08/30.03/113/18/106 (09/09 557) Lab Results Component Value Date SPGRVTYUR 1.015 08/29/2023 GLUCOSEURINE Negative 08/29/2023 KETONESURINE Negative 08/29/2023 BLOODURINE Trace (A) 08/29/2023 NITRITESURIN Negative 08/29/2023 LEUKOCESTUR Negative 08/29/2023 WBCURINE 0 - 5 08/29/2023 RBCURINE 3-5 (A) 08/29/2023 BACTERIAURIN ABSENT 08/29/2023 XR CHEST PORTABLE Final Result IMPRESSION: Waxing and waning airspace opacities in the left lung likely infectious/inflammatory process. CHEST PORTABLE Final Result IMPRESSION: Increasing focal consolidation in the left suprahilar region, likely corresponding to pneumonia seen on recent chest CT. I personally viewed and interpreted these images and I have reviewed and approved this report. ABDOMEN/PELVIS WITHOUT CONTRAST Final Result IMPRESSION: 1. Interval removal of nephrostomy tube from right lower quadrant transplant kidney. No stones or hydronephrosis. 2. New prominent to borderline enlarged upper abdominal and retroperitoneal nodes lymph nodes as above, which are nonspecific but may be secondary to a lymphoproliferative disorder or granulomatous process.. Recommend clinical correlation. 3. Prior liver transplant without focal hepatic lesion. No ascites or peritransplant fluid collections. Prominent perigastric collateral vessels, similar to prior. 4. Groundglass attenuation in the lung bases with the basilar atelectatic changes 5. Nonobstructive bowel gas pattern. Normal appendix 6. No abdominopelvic ascites. I personally viewed and interpreted these images and I have reviewed and approved this report. CHEST WITHOUT CONTRAST Final Result IMPRESSION: 1. Superior segment of the left lower lobe consolidative pneumonia with trace fluid or mild thickening of the adjacent minor fissure. 2. Innumerable punctate centrilobular nodules throughout both lungs are likely infectious as well in an immunocompromised patient. 3. Few mildly enlarged lymph nodes in the AP window are likely reactive. 4. Coronary artery disease. RENAL TRANSPLANT SCAN Final Result IMPRESSION: Questionable stones in the transplant kidney with normal resistive indices and no hydronephrosis. Possible bladder stone. If confirmation of stones is desired, consider noncontrast CT scanning. I personally viewed and interpreted these images and I have reviewed and approved this report. CHEST PORTABLE Final Result IMPRESSION: Prominent heart without pulmonary edema. Clear lungs. CHEST WITHOUT CONTRAST (Results Pending) Assessment/Plan: George Styles is a 53 y.o. 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 His post-transplant course was noteworthy for nephrostomy tube (05/17/2022-09/10/2022) due to concern for ureteral stone. 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 Patient with recurrent fevers of unknown origin starting 07/23. CT Chest with findings concerning for infection. Blood cultures negative. Immunocompromised respiratory panel negative. - Infectious Disease follwoing - liposomal ampho B 3mg/kg q24h - PO itraconazole liquid 200mg BID Q8H until 09/06, then BID - trough in 10-14d (may be as outpt ~ 09/14-) - will need to adjust IS dosing 2/2 itra - Pulmonology signed off - bronchoscopy performed 09/02 - recommend repeat CT Chest in 8-12 weeks as OP (~ 10/31/23-12/01/23) Acute Hypoxic Respiratory Insufficiency, improved Patient requiring 3-4L NC during admission. Does not report oxygen at home. He has a 23 pack year smoking history, however quit and does not carry a diagnosis of COPD. Likely related to CT findings with workup as below. He briefly required non-rebreather and high flow nasal cannula when getting bronchoscopy, indicating patient likely has low reserve. 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 He again had increased oxygen requirements on 10/6 am that resolved with repositioning and supportive care. Oxygen desaturations likely related to mucous plugging. He has been saturating on room air to 2L NC and feels as if he is mobilizing his secretions. - continue to monitor - oxygen as needed to maintain saturations >92% - incentive spirometry - histo/blasto treatment as above Acute Kidney Injury with Kidney Transplant, resolved: Patient is s/p combined liver/kidney transplant in 04/13/20. Prior to presentation, patient takes tacrolimus 0.5mg BID and mycophenolate 540mg BID for immunosuppression. Baseline creatinine appears to be 1.1-1.4, though variable. Bmup in creatinine today. Patient on amphotericin so keeping a close monitor and will give 500cc LR bolus. - Current immunosuppression: tacrolimus 0.25mg daily and mycophenolate 360mg BID - Transplant renal US with possible stones - CT A/P: Right lower quadrant transplant kidney is unremarkable - Recent testing prior to admission: CMV serum PCR negative, BK serum negative, EBV negative - Renally dose all medications as needed. - continue to monitor IS in setting of amphotericin treatment S/p Liver Transplant: combined liver/kidney transplant in 04/13/20. Prior to admission patient took tacrolimus 0.5mg BID and mycophenolate 360mg BID for immunosuppression. - Current IS as above - Immunosuppresion management as above - Hepatic function panel unremarkable on admission Chronic Medical Conditions Essential Hypertension- controlled - continue home amlodipine 5mg, holding losartan 50mg BID CAD: non-obstructive CAD on [facility] 2018. - continue home aspirin 81mg daily, holding atorvastatin 20mg daily Gout: continue home allopurinol 200mg daily BPH: continue home flomax 0.4mg daily DVT PPX: SQH Code Status: Full Code Disposition: Pending clinical course. Anticipate eventual discharge home. Discussed with team and attending, Kevin Sage MD, on rounds. Signed, Laurel Serrano MD, PhD Internal Medicine Daily Progress Note Patient: George Styles, 1970, [id number] Physician: Evan Kelly MD, PGY-1, TM1 service Subjective/Interval History: No acute events overnight. Patient saturating appropriately on room air. He has been mobilizing his secretions. Denies any shortness of breath. All questions answered by the team on rounds. Objective: Vitals: 09/07/23 1053 BP: 126/61 Pulse: 68 Resp: 16 Temp: 97.6 F (36.4 C) SpO2: 97% O2 Device: nasal cannula (09/07/23 1053) Flow (L/min): 2 (09/07/23 1100) Gen: Alert, Awake, NAD, tired-appearing Eyes: EOMI, no icterus ENT: MMM, trachea midline Resp: Bilateral clear to auscultation, non labored breathing on room air Cardio: RRR, normal S1, S2, no M/R/G. No JENSEN. GI: S/NT/ND, NABS MSK: No joint effusions or erythema: Skin: No jaundice or rash Neuro: Moving all 4 extremities spontaneously Psych: Appropriate for clinical situation. Data Review: WBC/Hgb/Hct/Plts: 4.10/11.9/37.1/176 (09/07 605) Na/K+/Phos/Mg/Ca: 141/3.9/4.4/1.7/-- (09/07 605) Bun/Creat/Cl/CO2/Glucose: 13/1.22/113/19/107 (09/07 605) Lab Results Component Value Date SPGRVTYUR 1.015 08/29/2023 GLUCOSEURINE Negative 08/29/2023 KETONESURINE Negative 08/29/2023 BLOODURINE Trace (A) 08/29/2023 NITRITESURIN Negative 08/29/2023 LEUKOCESTUR Negative 08/29/2023 WBCURINE 0 - 5 08/29/2023 RBCURINE 3-5 (A) 08/29/2023 BACTERIAURIN ABSENT 08/29/2023 Blood cultures 08/28 NGTD Histo/Blasto positive. Ag 5.3 XR CHEST PORTABLE Final Result IMPRESSION: Waxing and waning airspace opacities in the left lung likely infectious/inflammatory process. CHEST PORTABLE Final Result IMPRESSION: Increasing focal consolidation in the left suprahilar region, likely corresponding to pneumonia seen on recent chest CT. I personally viewed and interpreted these images and I have reviewed and approved this report. ABDOMEN/PELVIS WITHOUT CONTRAST Final Result IMPRESSION: 1. Interval removal of nephrostomy tube from right lower quadrant transplant kidney. No stones or hydronephrosis. 2. New prominent to borderline enlarged upper abdominal and retroperitoneal nodes lymph nodes as above, which are nonspecific but may be secondary to a lymphoproliferative disorder or granulomatous process.. Recommend clinical correlation. 3. Prior liver transplant without focal hepatic lesion. No ascites or peritransplant fluid collections. Prominent perigastric collateral vessels, similar to prior. 4. Groundglass attenuation in the lung bases with the basilar atelectatic changes 5. Nonobstructive bowel gas pattern. Normal appendix 6. No abdominopelvic ascites. I personally viewed and interpreted these images and I have reviewed and approved this report. CHEST WITHOUT CONTRAST Final Result IMPRESSION: 1. Superior segment of the left lower lobe consolidative pneumonia with trace fluid or mild thickening of the adjacent minor fissure. 2. Innumerable punctate centrilobular nodules throughout both lungs are likely infectious as well in an immunocompromised patient. 3. Few mildly enlarged lymph nodes in the AP window are likely reactive. 4. Coronary artery disease. RENAL TRANSPLANT SCAN Final Result IMPRESSION: Questionable stones in the transplant kidney with normal resistive indices and no hydronephrosis. Possible bladder stone. If confirmation of stones is desired, consider noncontrast CT scanning. I personally viewed and interpreted these images and I have reviewed and approved this report. CHEST PORTABLE Final Result IMPRESSION: Prominent heart without pulmonary edema. Clear lungs. CHEST WITHOUT CONTRAST (Results Pending) Assessment/Plan: George Styles is a 53 y.o. 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 His post-transplant course was noteworthy for nephrostomy tube (05/17/2022-09/10/2022) due to concern for ureteral stone. 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 Patient with recurrent fevers of unknown origin starting 07/23. CT Chest with findings as above. - Blood cultures NGTD - immunocompromised respiratory panel all negative - Infectious Disease consulted, appreciate recommendations - liposomal ampho B 3mg/kg q24h -PO itraconazole liquid 200mg BID Q8H until 09/06, then BID -trough in 10-14d (may be as outpt) -will need to adjust IS dosing 2/2 itra - Pulmonology consulted - bronchoscopy performed 09/02 - signed off - recommend repeat CT Chest in 8-12 weeks Acute Hypoxic Respiratory Insufficiency, improved Patient requiring 3-4L NC during admission. Does not report oxygen at home. He has a 23 pack year smoking history, however quit and does not carry a diagnosis of COPD. Likely related to CT findings with workup as below. He briefly required non-rebreather and high flow nasal cannula when getting bronchoscopy, indicating patient likely has low reserve. 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 He again had increased oxygen requirements on 10 am that resolved with repositioning and supportive care. Oxygen desaturations likely related to mucous plugging. He has been saturating on room air to 2L NC and feels as if he is mobilizing his secretions. - continue to monitor - oxygen as needed to maintain saturations >92% - incentive spirometry - low threshold to escalate care - histo/blasto treatment as above Acute Kidney Injury with Kidney Transplant, resolved: Patient is s/p combined liver/kidney transplant in 04/13/20. Prior to presentation, patient takes tacrolimus 0.5mg BID and mycophenolate 540mg BID for immunosuppression. Baseline creatinine appears to be 1.1-1.4, though variable. Bmup in creatinine today. Patient on amphotericin so keeping a close monitor and will give 500cc LR bolus. - Current immunosuppression: tacrolimus 0.5mg daily and mycophenolate 360mg BID - UA with trace blood and 3-5 Rbc on admission - Transplant renal US with possible stones - CT A/P: Right lower quadrant transplant kidney is unremarkable - Recent testing prior to admission: CMV serum PCR negative, BK serum negative, EBV negative - Renally dose all medications as needed. - continue to monitor in setting of amphotericin treatment S/p Liver Transplant: combined liver/kidney transplant in 04/13/20. Patient currently takes tacrolimus 0.5mg BID and mycophenolate 360mg BID for immunosuppression. - Immunosuppresion management as above - Hepatic function panel unremarkable on admission Chronic Medical Conditions Essential Hypertension- controlled - continue home amlodipine 5mg, holding losartan 50mg BID CAD: non-obstructive CAD on [facility] 2018. - continue home aspirin 81mg daily, holding atorvastatin 20mg daily Gout: continue home allopurinol 200mg daily BPH: continue home flomax 0.4mg daily DVT PPX: SQH Code Status: Full Code Disposition: Pending clinical course. Anticipate eventual discharge home. Discussed with team and attending, Kevin Sage MD, on rounds. Signed, Evan Kelly MD Attending Physician Addendum I saw and personally examined Mr. Styles with the renal team. I discussed the findings and plan of the case. I agree with the history, physical examination, and medical decisions as outlined above. VS Temp: [97.6 F (36.4 C)-97.8 F (36.6 C)] 97.8 F (36.6 C) Pulse (Heart Rate): [63-77] 77 Resp Rate: [14-24] 23 BP: (115-129)/(57-66) 126/62 O2 Sat (%): [89 %-98 %] 94 % Weight: [94 kg (207 lb 4.8 oz)] 94 kg (207 lb 4.8 oz) I/O last 3 completed shifts: In: 2960.4 [P.O.:1650; I.V.:1100.5; IV Piggyback:209.9] Out: 2575 [Urine:2575] I/O this shift: In: 1250 [P.O.:1250] Out: - LABS Lab Results Component Value Date WBC 4.10 09/07/2023 HGB 11.9 (L) 09/07/2023 PLATELET 176 09/07/2023 Lab Results Component Value Date SODIUM 141 09/07/2023 POTASSIUM 3.9 09/07/2023 CHLORIDE 113 (H) 09/07/2023 CO2 19 (L) 09/07/2023 BUN 13 09/07/2023 CREATSERUM 1.22 09/07/2023 GLUCOSE 107 (H) 09/07/2023 Lab Results Component Value Date CALCIUM 9.2 08/17/2023 PHOSPHORUS 4.4 09/07/2023 Lab Results Component Value Date CREATSERUM 1.22 09/07/2023 CREATSERUM 1.26 09/06/2023 CREATSERUM 1.43 (H) 09/05/2023 CREATSERUM 1.48 08/17/2023 CREATSERUM 1.04 07/03/2023 CREATSERUM 1.17 04/28/2023 CREATSERUM 5.05 (H) 11/19/2018 Kevin Sage MD, [employer] Supervisor of Clinical Medicine [facility] Transplant Infectious Disease (Team 3) Progress Note Date of Service: 09/07/23 Subjective: Back on O2 overnight for desaturations to high 80s. Patient denies any new respiratory symptoms. Continue to endorse a productive cough and feels like his sputum is breaking up . Denies chest pain, hemoptysis, and dyspnea. Has a decent appetite. Denies fevers and chills. Physical Exam: Temp: [97.6 F (36.4 C)-97.9 F (36.6 C)] 97.6 F (36.4 C) Pulse (Heart Rate): [63-75] 69 Resp Rate: [14-24] 16 BP: (114-133)/(57-68) 121/64 O2 Sat (%): [89 %-98 %] 98 % Weight: [93.8 kg (206 lb 11.2 oz)] 93.8 kg (206 lb 11.2 oz) General: NAD, lying comfortably in bed HENT: NC/AT, normal dentition, moist mucus membranes, NC in place Eyes: EOMI, anicteric sclerae, no conjunctival erythema Respiratory: b/l rhonchi in upper lobes, no respiratory distress, no wheezing Cardiovascular: RRR, S1 S2, no murmurs Abdomen: soft, nontender, nondistended Skin: warm and dry, no rashes or ulcerations Psychiatric: appropriate affect, alert and oriented x3 Body mass index is 32.37 kg/m . Current Medications: Acetaminophen 325 mg Oral Q24H Allopurinol 200 mg Oral Daily amLODIPine 5 mg Oral Q24H amphotericin B LIPOSOME (AMBISOME) IVPB 3 mg/kg (Adjusted) Intravenous Q24H aspirin 81 mg Oral Daily [Held by provider] Atorvastatin 20 mg Oral QHS diphenhydrAMINE 25 mg Oral Q24H faMOTIdine 20 mg Oral BID Gabapentin 400 mg Oral QHS heparin 5,000 Units Subcutaneous Q8H Itraconazole 200 mg Oral Q12HNS magnesium oxide 400 mg Oral Daily Mycophenolate sodium 360 mg Oral Q12HNS Sodium chloride 0.9% 500 mL Intravenous Q24H Sodium chloride 0.9% 500 mL Intravenous Q24H Sulfamethoxazole-trimethoprim 1 tablet Oral Once per day on Thu Tacrolimus 0.5 mg Oral Daily Tamsulosin HCl 0.4 mg Oral Daily Labs(personally reviewed): No leukocytosis Serum histo/blasto ag pos 5.3 (08/29) Urine histo neg BAL histo ag neg Micro (personally rewiewed): RVP negative BAL acid fast culture NGTD BAL fungal culture NGTD Imaging (personally reviewed): 08/31 CT C/A/P 1. Superior segment of the left lower lobe consolidative pneumonia with trace fluid or mild thickening of the adjacent minor fissure. 2. Innumerable punctate centrilobular nodules throughout both lungs are likely infectious as well in an immunocompromised patient. 3. Few mildly enlarged lymph nodes in the AP window are likely reactive. 4. Coronary artery disease. 1. Interval removal of nephrostomy tube from right lower quadrant transplant kidney. No stones or hydronephrosis. 2. New prominent to borderline enlarged upper abdominal and retroperitoneal nodes lymph nodes as above, which are nonspecific but may be secondary to a lymphoproliferative disorder or granulomatous process.. Recommend clinical correlation. 3. Prior liver transplant without focal hepatic lesion. No ascites or peritransplant fluid collections. Prominent perigastric collateral vessels, similar to prior. 4. Groundglass attenuation in the lung bases with the basilar atelectatic changes 5. Nonobstructive bowel gas pattern. Normal appendix 6. No abdominopelvic ascites. 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 Interestingly serum histo/blasto ag is positive but urine and BAL are negative. Maybe this is blasto, though believe there is still crossreaction with BAL and urine antigens. 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 He is responding to amphotericin. He is on and off O2, but reports breathing more comfortably and cessation of fevers/sweats. Would continue IV L-AmB for a few more days in light of severe infection. Tolerating antifungals well. BAL acid fast stain and fungal culture remain negative. Recommendations: - continue liposomal ampho B 3mg/kg q24h - follow cr, lytes - continue PO itraconazole liquid 200mg q8h x9 doses then q12h - trough in 10-14d (may be as outpt) - will need to adjust IS dosing 2/2 itra - follow rest of pending workup - if continuing to improve, may consider stopping ampho B and discharge on itraconazole in a few days Transplant ID (Team 3) will continue to follow. Please Epic message or page [phone] with questions. Ann Marie Haskins MD PGY-4, Internal Medicine/Pediatrics Associated attestation - Evan White DO - 09/07/2023 2:11 PM EDT I saw and independently examined the patient on 09/07/2023. I agree with the history, examination, and medical decision making as noted by Dr. Haskins. Generally doing well, did desat requiring oxygen and was a bit shaky when I saw him after he brushed his teeth. Feels like mobilizing secretions. Continue current antimicrobials but hopefully can get down to only PO and discharge in the next few days if he continues to improve. Please message via [email or web address] secure chat or page with any questions or concerns. Evan White DO [employer] Supervisor Division of Infectious Disease Transplant Infectious Disease (Team 3) Progress Note Date of Service: 09/06/23 Subjective: now off oxygen, feels like mobilizing secretions better Physical Exam: Temp: [97.6 F (36.4 C)-98.2 F (36.8 C)] 97.6 F (36.4 C) Pulse (Heart Rate): [65-79] 74 Resp Rate: [14-21] 20 BP: (112-139)/(55-69) 114/59 O2 Sat (%): [90 %-95 %] 90 % Weight: [94.1 kg (207 lb 8 oz)] 94.1 kg (207 lb 8 oz) General: NAD, lying comfortably in bed HENT: NC/AT, normal dentition, moist mucus membranes Eyes: EOMI, anicteric sclerae, no conjunctival erythema Respiratory: b/l rhonchi Cardiovascular: RRR, S1 S2, no murmurs Abdomen: soft, nontender, nondistended Skin: warm and dry, no rashes or ulcerations Psychiatric: appropriate affect, alert and oriented x3 Body mass index is 32.49 kg/m . Current Medications: Acetaminophen 325 mg Oral Q24H Allopurinol 200 mg Oral Daily amLODIPine 5 mg Oral Q24H amphotericin B LIPOSOME (AMBISOME) IVPB 3 mg/kg (Adjusted) Intravenous Q24H aspirin 81 mg Oral Daily [Held by provider] Atorvastatin 20 mg Oral QHS diphenhydrAMINE 25 mg Oral Q24H faMOTIdine 20 mg Oral BID Gabapentin 400 mg Oral QHS heparin 5,000 Units Subcutaneous Q8H Itraconazole 200 mg Oral Q12HNS magnesium oxide 400 mg Oral Daily Mycophenolate sodium 360 mg Oral Q12HNS Sodium chloride 0.9% 500 mL Intravenous Q24H Sodium chloride 0.9% 500 mL Intravenous Q24H Sulfamethoxazole-trimethoprim 1 tablet Oral Once per day on Thu Tacrolimus 0.5 mg Oral Daily Tamsulosin HCl 0.4 mg Oral Daily Labs(personally reviewed): No leukocytosis Serum Histo blasto ag pos 5.3 Urine histo neg BAL histo ag neg Micro (personally rewiewed): RVP negative Imaging (personally reviewed): 08/31 CT C/A/P 1. Superior segment of the left lower lobe consolidative pneumonia with trace fluid or mild thickening of the adjacent minor fissure. 2. Innumerable punctate centrilobular nodules throughout both lungs are likely infectious as well in an immunocompromised patient. 3. Few mildly enlarged lymph nodes in the AP window are likely reactive. 4. Coronary artery disease. 1. Interval removal of nephrostomy tube from right lower quadrant transplant kidney. No stones or hydronephrosis. 2. New prominent to borderline enlarged upper abdominal and retroperitoneal nodes lymph nodes as above, which are nonspecific but may be secondary to a lymphoproliferative disorder or granulomatous process.. Recommend clinical correlation. 3. Prior liver transplant without focal hepatic lesion. No ascites or peritransplant fluid collections. Prominent perigastric collateral vessels, similar to prior. 4. Groundglass attenuation in the lung bases with the basilar atelectatic changes 5. Nonobstructive bowel gas pattern. Normal appendix 6. No abdominopelvic ascites. 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 Interestingly serum histo/blasto ag is positive but urine and BAL are negative. Maybe this is blasto, though believe there is still crossreaction with BAL and urine antigens. He is responding to amphotericin and now off oxygen so still believe the diagnosis is histo. Would continue IV L-AmB for a few more days in light of severe infection. Recommendations: -continue liposomal ampho B 3mg/kg q24h -follow cr, lytes -continue PO itraconazole liquid 200mg q8h x9 doses then q12h -trough in 10-14d (may be as outpt) -will need to adjust IS dosing 2/2 itra -follow rest of pending workup Transplant ID (Team 3) will continue to follow. Please Epic message or page [phone] with questions. Evan Whiet DO Transplant Infectious Diseases Images from the original note were not included. Pulmonary/Critical Care Medicine Daily Progress Note Reason for Consultation: bronch for infectious workup Requesting Physician: Dr. Sage CURRENT [facility]OSPITALIZATION: [facility]: 9 days Impression 1. Acute hypoxemic respiratory failure 2. Pulmonary histoplasmosis. Serum ag positive. His CT chest is notable for a dense infiltrate in LLL superior segment along with diffuse bilateral micro nodules in a miliary pattern. Histo certainly fits this pattern. He is s/p BAL though both histo ag from RML and LLL are both negative 3. S/p liver kidney transplant 4. Immunocompromised state Recommendation Antimicrobials per ID Wean FiO2 for maintain SpO2 90-96% Immunosuppression per Transplant team Repeat non con CT chest in 8-12 weeks. If abnormalities persist, refer to outpt pulmonary clinic We will sign off Crow Diaz MD Pulmonary and Critical Care Medicine Interval History Hypoxemia is improving and now on RA. Feels better Allergies and Medications: Allergies: Allergies Allergen Reactions Shellfish-Derived Products Swelling Patient with lip and tongue swelling. Pertinent home medications: Medications Prior to Admission Medication Sig Dispense Refill Last Dose Allopurinol 100 MG tablet Take 2 tablets by mouth daily. 180 tablet 3 08/28/2023 amLODIPine 5 MG tablet Take 1 tablet by mouth daily. 08/27/2023 aspirin 81 MG Chew Tab chewable tablet Chew 1 tablet daily. Last refill from our office. Medication can be purchased over the counter going forward. 30 tablet 0 08/28/2023 atorvastatin 20 MG tablet Take 1 tablet by mouth at bedtime. Further refills to be provided by PCP's office. 30 tablet 3 08/27/2023 benzonatate 100 MG capsule Take 1 capsule by mouth 3 times daily as needed. 08/28/2023 faMOTIdine 20 MG tablet Take 1 tablet by mouth 2 times daily. 08/28/2023 Gabapentin 400 MG capsule Take 1 capsule by mouth at bedtime. 08/27/2023 Losartan 50 MG tablet Take 1 tablet by mouth 2 times daily. 200 tablet 3 08/28/2023 melatonin 3 MG tablet Take 1 tablet by mouth at bedtime as needed for Insomnia. Mycophenolate sodium (Myfortic) [address] Take 3 tablets by mouth every 12 hours. 08/28/2023 at 0800 polyethylene glycol 17 g Pack packet Take 1 packet by mouth daily. 08/27/2023 Sulfamethoxazole-trimethoprim 800-160 MG per tablet Take 1 tablet by mouth 2 times daily. 08/28/2023 Tacrolimus (PROGRAF) 0.5 MG capsule Take 1 capsule by mouth every 12 hours. 180 capsule 1 08/28/2023 at 0800 Tamsulosin HCl 0.4 MG capsule take 1 capsule by mouth once daily 90 capsule 3 08/28/2023 ondansetron 4 MG tablet Take 1 tablet by mouth every 8 hours as needed for Nausea / Vomiting. Unknown Current Scheduled Meds: Acetaminophen 325 mg Oral Q24H Allopurinol 200 mg Oral Daily amLODIPine 5 mg Oral Q24H amphotericin B LIPOSOME (AMBISOME) IVPB 3 mg/kg (Adjusted) Intravenous Q24H aspirin 81 mg Oral Daily [Held by provider] Atorvastatin 20 mg Oral QHS diphenhydrAMINE 25 mg Oral Q24H faMOTIdine 20 mg Oral BID Gabapentin 400 mg Oral QHS heparin 5,000 Units Subcutaneous Q8H Itraconazole 200 mg Oral Q8H Itraconazole 200 mg Oral Q12HNS magnesium oxide 400 mg Oral Daily Mycophenolate sodium 360 mg Oral Q12HNS Sodium chloride 0.9% 500 mL Intravenous Q24H Sodium chloride 0.9% 500 mL Intravenous Q24H Sulfamethoxazole-trimethoprim 1 tablet Oral Once per day on Thu Tacrolimus 0.5 mg Oral Daily Tamsulosin HCl 0.4 mg Oral Daily Continuous Infusions: PRN Medications: Acetaminophen, Dextrose 5%, guaiFENesin, Melatonin, Ondansetron 4mg/2ml OR Ondansetron, petrolatum, Polyethylene glycol, Sodium chloride, Sodium chloride 0.9%, Sodium chloride Physical Exam: Vitals and nursing notes reviewed in chart. General appearance: alert, awake, follows commands Heent: trachea midline. PERRL. Oral mucosa moist Neck: no JVD. No thyromegaly Lungs: CTAB. No rales/wheezes/rhonchi. Heart: Regular rate and rhythm. No murmurs. Normal, non-displaced, PMI. Abdomen: Soft, non-tender. Bowel sounds normal. No pulsatile masses or organomegaly. Extremities: Normal, atraumatic, no cyanosis or edema. No ulcers. Pulses: All pulses 2+ and symmetric. Skin: Skin color, texture, turgor normal. No rashes or lesions. Laboratory Data: Lab Results Component Value Date SODIUM 138 09/06/2023 SODIUM 139 08/17/2023 POTASSIUM 4.1 09/06/2023 POTASSIUM 4.2 09/04/2023 POTASSIUM 3.6 08/17/2023 CHLORIDE 109 (H) 09/06/2023 CHLORIDE 102 08/17/2023 CO2 19 (L) 09/06/2023 CO2 27.6 08/17/2023 BUN 16 09/06/2023 BUN 11 07/03/2023 CALCIUM 9.2 08/17/2023 PHOSPHORUS 3.1 07/03/2023 PHOSPHORUS 5.0 (H) 05/17/2019 MAGNESIUM 2.0 09/06/2023 MAGNESIUM 1.7 07/03/2023 CREATSERUM 1.26 09/06/2023 CREATSERUM 1.48 08/17/2023 CREATSERUM 5.05 (H) 11/19/2018 Lab Results Component Value Date WBC 4.41 09/06/2023 WBC 4.7 08/17/2023 HGB 11.9 (L) 09/06/2023 HGB 14.2 08/17/2023 HCT 38.4 (L) 09/06/2023 HCT 44.1 08/17/2023 PLATELET 181 09/06/2023 PLATELET 201 08/17/2023 Lab Results Component Value Date PT 13.8 08/29/2023 PT 11.4 05/03/2020 INR 1.1 08/29/2023 INR 1.1 05/03/2020 PTT 29.3 08/29/2023 PTT 29.9 05/03/2020 PTT 36.3 (H) 05/17/2019 ABG: Relevant microbiologic cultures: serum ag + for histo. Pulmonary Function Tests: PFT Results No data to display Imaging/Radiological Studies: I have personally and interpreted reviewed the radiographic data in [employer]. Internal Medicine Daily Progress Note Patient: George Styles, 1970, [id number] Physician: Evan Kelly MD, PGY-1, TM1 service Subjective/Interval History: No acute events overnight. Patient saturating appropriately on room air. He states he has been able to clear phlegm which may be contributing to his decreased oxygen requirements. His renal function imporved s/p bolus. He denies shortness of breath. All questions answered by the team. Objective: Vitals: 09/06/23744 BP: 139/69 Pulse: 72 Resp: 20 Temp: 98 F (36.7 C) SpO2: 91% O2 Device: room air (09/06/23744) Flow (L/min): 1 (09/06/23331) Gen: Alert, Awake, NAD, tired-appearing Eyes: EOMI, no icterus ENT: MMM, trachea midline Resp: Bilateral clear to auscultation, non labored breathing on 4L NC Cardio: RRR, normal S1, S2, no M/R/G. No JENSEN. GI: S/NT/ND, NABS MSK: No joint effusions or erythema: Skin: No jaundice or rash Neuro: Moving all 4 extremities spontaneously Psych: Appropriate for clinical situation. Data Review: WBC/Hgb/Hct/Plts: 4.41/11.9/38.4/181 (09/06 628) Na/K+/Phos/Mg/Ca: 138/4.1/--/2.0/-- (09/06 628) Bun/Creat/Cl/CO2/Glucose: 16/1.26/109/19/114 (09/06 628) Lab Results Component Value Date SPGRVTYUR 1.015 08/29/2023 GLUCOSEURINE Negative 08/29/2023 KETONESURINE Negative 08/29/2023 BLOODURINE Trace (A) 08/29/2023 NITRITESURIN Negative 08/29/2023 LEUKOCESTUR Negative 08/29/2023 WBCURINE 0 - 5 08/29/2023 RBCURINE 3-5 (A) 08/29/2023 BACTERIAURIN ABSENT 08/29/2023 Blood cultures 08/28 NGTD Histo/Blasto positive. Ag 5.3 XR CHEST PORTABLE Final Result IMPRESSION: Waxing and waning airspace opacities in the left lung likely infectious/inflammatory process. CHEST PORTABLE Final Result IMPRESSION: Increasing focal consolidation in the left suprahilar region, likely corresponding to pneumonia seen on recent chest CT. I personally viewed and interpreted these images and I have reviewed and approved this report. ABDOMEN/PELVIS WITHOUT CONTRAST Final Result IMPRESSION: 1. Interval removal of nephrostomy tube from right lower quadrant transplant kidney. No stones or hydronephrosis. 2. New prominent to borderline enlarged upper abdominal and retroperitoneal nodes lymph nodes as above, which are nonspecific but may be secondary to a lymphoproliferative disorder or granulomatous process.. Recommend clinical correlation. 3. Prior liver transplant without focal hepatic lesion. No ascites or peritransplant fluid collections. Prominent perigastric collateral vessels, similar to prior. 4. Groundglass attenuation in the lung bases with the basilar atelectatic changes 5. Nonobstructive bowel gas pattern. Normal appendix 6. No abdominopelvic ascites. I personally viewed and interpreted these images and I have reviewed and approved this report. CHEST WITHOUT CONTRAST Final Result IMPRESSION: 1. Superior segment of the left lower lobe consolidative pneumonia with trace fluid or mild thickening of the adjacent minor fissure. 2. Innumerable punctate centrilobular nodules throughout both lungs are likely infectious as well in an immunocompromised patient. 3. Few mildly enlarged lymph nodes in the AP window are likely reactive. 4. Coronary artery disease. RENAL TRANSPLANT SCAN Final Result IMPRESSION: Questionable stones in the transplant kidney with normal resistive indices and no hydronephrosis. Possible bladder stone. If confirmation of stones is desired, consider noncontrast CT scanning. I personally viewed and interpreted these images and I have reviewed and approved this report. CHEST PORTABLE Final Result IMPRESSION: Prominent heart without pulmonary edema. Clear lungs. Assessment/Plan: George Styles is a 53 y.o. 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 His post-transplant course was noteworthy for nephrostomy tube (05/17/2022-09/10/2022) due to concern for ureteral stone. He presents as a direct admission for fever, cough, for infectious workup Plans for Today: - Amphotericin B 3 mg/kg Q24hr - Itraconazole 200mg BID starting 09/07 - Hold atorvastatin - PCU - oxygen prn to maintain saturations >92% - Incentive spirometry Histoplasma/Blastomyces Infection without sepsis: Histo/Blasto testing for serum antigen 5.3, unable to differentiate between them. Patient with recurrent fevers of unknown origin starting 07/23. CT Chest with findings as above. Patient on 4L NC. - Blood cultures NGTD - immunocompromised respiratory panel all negative - Infectious Disease consulted, appreciate recommendations -start liposomal ampho B 3mg/kg q24h w/ premeds in order set -start PO itraconazole liquid 200mg BID Q8H until 09/06, then BID -trough in 10-14d (may be as outpt) -will need to adjust IS dosing 2/2 itra - Pulmonology consulted - bronchoscopy performed 09/02 Acute Hypoxic Respiratory Insufficiency Failure, stable Patient requiring 3-4L NC during admission. Does not report oxygen at home. He has a 23 pack year smoking history, however quit and does not carry a diagnosis of COPD. Likely related to CT findings with workup as below. He briefly required non-rebreather and high flow nasal cannula when getting bronchoscopy, indicating patient likely has low reserve. 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 He again had increased oxygen requirements on 09/04 am that resolved with repositioning and supportive care. Oxygen desaturations likely related to mucous plugging. - continue to monitor - oxygen as needed to maintain saturations >92% - incentive spirometry - low threshold to escalate care - histo/blasto treatment as above Acute Kidney Injury with Kidney Transplant, resolved: Patient is s/p combined liver/kidney transplant in 04/13/20. Prior to presentation, patient takes tacrolimus 0.5mg BID and mycophenolate 540mg BID for immunosuppression. Baseline creatinine appears to be 1.1-1.4, though variable. Bmup in creatinine today. Patient on amphotericin so keeping a close monitor and will give 500cc LR bolus. - Current immunosuppression: tacrolimus 0.5mg daily and mycophenolate 360mg BID - UA with trace blood and 3-5 Rbc on admission - Transplant renal US with possible stones - CT A/P: Right lower quadrant transplant kidney is unremarkable - Recent testing prior to admission: CMV serum PCR negative, BK serum negative, EBV negative - Renally dose all medications as needed. - continue to monitor in setting of amphotericin treatment S/p Liver Transplant: combined liver/kidney transplant in 04/13/20. Patient currently takes tacrolimus 0.5mg BID and mycophenolate 360mg BID for immunosuppression. - Immunosuppresion management as above - Hepatic function panel unremarkable on admission Chronic Medical Conditions Essential Hypertension- controlled - continue home amlodipine 5mg, holding losartan 50mg BID CAD: non-obstructive CAD on [facility] 2018. - continue home aspirin 81mg daily, holding atorvastatin 20mg daily Gout: continue home allopurinol 200mg daily BPH: continue home flomax 0.4mg daily DVT PPX: SQH Code Status: Full Code Disposition: Pending clinical course. Anticipate eventual discharge home. Discussed with team and attending, Kevin Sage MD, on rounds. Signed, Evan Kelly MD Attending Physician Addendum I saw and personally examined Mr. Styles with the renal team. I discussed the findings and plan of the case. I agree with the history, physical examination, and medical decisions as outlined above. VS Temp: [97.6 F (36.4 C)-98.2 F (36.8 C)] 97.6 F (36.4 C) Pulse (Heart Rate): [65-79] 75 Resp Rate: [14-21] 20 BP: (112-139)/(55-69) 133/68 O2 Sat (%): [90 %-95 %] 93 % Weight: [93.8 kg (206 lb 11.2 oz)] 93.8 kg (206 lb 11.2 oz) I/O last 3 completed shifts: In: 2908.4 [P.O.:1086; I.V.:1599.5; IV Piggyback:222.9] Out: 2400 [Urine:2400] No intake/output data recorded. LABS Lab Results Component Value Date WBC 4.41 09/06/2023 HGB 11.9 (L) 09/06/2023 PLATELET 181 09/06/2023 Lab Results Component Value Date SODIUM 138 09/06/2023 POTASSIUM 4.1 09/06/2023 CHLORIDE 109 (H) 09/06/2023 CO2 19 (L) 09/06/2023 BUN 16 09/06/2023 CREATSERUM 1.26 09/06/2023 GLUCOSE 114 (H) 09/06/2023 Lab Results Component Value Date CALCIUM 9.2 08/17/2023 PHOSPHORUS 3.1 07/03/2023 Lab Results Component Value Date CREATSERUM 1.26 09/06/2023 CREATSERUM 1.43 (H) 09/05/2023 CREATSERUM 1.22 09/04/2023 CREATSERUM 1.48 08/17/2023 CREATSERUM 1.04 07/03/2023 CREATSERUM 1.17 04/28/2023 CREATSERUM 5.05 (H) 11/19/2018 Kevin Sage MD, MADISONN [employer] Supervisor of Clinical Medicine [facility] Images from the original note were not included. Pulmonary/Critical Care Medicine Daily Progress Note Reason for Consultation: bronch for infectious workup Requesting Physician: Dr. Sage CURRENT HOSPITALIZATION: Admit Date: 08/28/2023 [facility] Hospital LOS: 8 days Impression 1. Acute hypoxemic respiratory failure 2. Pulmonary histoplasmosis. Serum ag positive. His CT chest is notable for a dense infiltrate in LLL superior segment along with diffuse bilateral micro nodules in a miliary pattern. Histo certainly fits this pattern. He is s/p BAL though both histo ag from RML and LLL are both negative 3. S/p liver kidney transplant 4. Immunocompromised state Recommendation Antimicrobials per ID Wean FiO2 for maintain SpO2 90-96% Immunosuppression per Transplant team We will continue to follow along with james Diaz MD Pulmonary and Critical Care Medicine Interval History Hypoxemia is a bit better. Subjectively he is feeling better. Allergies and Medications: Allergies: Allergies Allergen Reactions Shellfish-Derived Products Swelling Patient with lip and tongue swelling. Pertinent home medications: Medications Prior to Admission Medication Sig Dispense Refill Last Dose Allopurinol 100 MG tablet Take 2 tablets by mouth daily. 180 tablet 3 08/28/2023 amLODIPine 5 MG tablet Take 1 tablet by mouth daily. 08/27/2023 aspirin 81 MG Chew Tab chewable tablet Chew 1 tablet daily. Last refill from our office. Medication can be purchased over the counter going forward. 30 tablet 0 08/28/2023 atorvastatin 20 MG tablet Take 1 tablet by mouth at bedtime. Further refills to be provided by PCP's office. 30 tablet 3 08/27/2023 benzonatate 100 MG capsule Take 1 capsule by mouth 3 times daily as needed. 08/28/2023 faMOTIdine 20 MG tablet Take 1 tablet by mouth 2 times daily. 08/28/2023 Gabapentin 400 MG capsule Take 1 capsule by mouth at bedtime. 08/27/2023 Losartan 50 MG tablet Take 1 tablet by mouth 2 times daily. 200 tablet 3 08/28/2023 melatonin 3 MG tablet Take 1 tablet by mouth at bedtime as needed for Insomnia. Mycophenolate sodium (Myfortic) [address] Take 3 tablets by mouth every 12 hours. 08/28/2023 at 0800 polyethylene glycol 17 g Pack packet Take 1 packet by mouth daily. 08/27/2023 Sulfamethoxazole-trimethoprim 800-160 MG per tablet Take 1 tablet by mouth 2 times daily. 08/28/2023 Tacrolimus (PROGRAF) 0.5 MG capsule Take 1 capsule by mouth every 12 hours. 180 capsule 1 08/28/2023 at 0800 Tamsulosin HCl 0.4 MG capsule take 1 capsule by mouth once daily 90 capsule 3 08/28/2023 ondansetron 4 MG tablet Take 1 tablet by mouth every 8 hours as needed for Nausea / Vomiting. Unknown Current Scheduled Meds: Acetaminophen 325 mg Oral Q24H Allopurinol 200 mg Oral Daily amLODIPine 5 mg Oral Q24H amphotericin B LIPOSOME (AMBISOME) IVPB 3 mg/kg (Adjusted) Intravenous Q24H aspirin 81 mg Oral Daily [Held by provider] Atorvastatin 20 mg Oral QHS diphenhydrAMINE 25 mg Oral Q24H faMOTIdine 20 mg Oral BID Gabapentin 400 mg Oral QHS heparin 5,000 Units Subcutaneous Q8H Itraconazole 200 mg Oral Q8H [START ON 09/06/2023] Itraconazole 200 mg Oral BID magnesium oxide 400 mg Oral Daily Mycophenolate sodium 360 mg Oral Q12HNS Sodium chloride 0.9% 500 mL Intravenous Q24H Sodium chloride 0.9% 500 mL Intravenous Q24H Sodium chloride 0.9% Sulfamethoxazole-trimethoprim 1 tablet Oral Once per day on Thu Tacrolimus 0.5 mg Oral Daily Tamsulosin HCl 0.4 mg Oral Daily Continuous Infusions: PRN Medications: Acetaminophen, Dextrose 5%, guaiFENesin, Melatonin, Ondansetron 4mg/2ml OR Ondansetron, petrolatum, Polyethylene glycol, Sodium chloride, Sodium chloride 0.9%, Sodium chloride 0.9%, Sodium chloride Physical Exam: Vitals and nursing notes reviewed in chart. General appearance: alert, awake, follows commands Heent: trachea midline. PERRL. Oral mucosa moist Neck: no JVD. No thyromegaly Lungs: CTAB. No rales/wheezes/rhonchi. Heart: Regular rate and rhythm. No murmurs. Normal, non-displaced, PMI. Abdomen: Soft, non-tender. Bowel sounds normal. No pulsatile masses or organomegaly. Extremities: Normal, atraumatic, no cyanosis or edema. No ulcers. Pulses: All pulses 2+ and symmetric. Skin: Skin color, texture, turgor normal. No rashes or lesions. Laboratory Data: Lab Results Component Value Date SODIUM 135 09/05/2023 SODIUM 139 08/17/2023 POTASSIUM 4.2 09/05/2023 POTASSIUM 4.2 09/04/2023 POTASSIUM 3.6 08/17/2023 CHLORIDE 107 09/05/2023 CHLORIDE 102 08/17/2023 CO2 20 (L) 09/05/2023 CO2 27.6 08/17/2023 BUN 18 09/05/2023 BUN 11 07/03/2023 CALCIUM 9.2 08/17/2023 PHOSPHORUS 3.1 07/03/2023 PHOSPHORUS 5.0 (H) 05/17/2019 MAGNESIUM 1.7 09/05/2023 MAGNESIUM 1.7 07/03/2023 CREATSERUM 1.43 (H) 09/05/2023 CREATSERUM 1.48 08/17/2023 CREATSERUM 5.05 (H) 11/19/2018 Lab Results Component Value Date WBC 4.24 09/05/2023 WBC 4.7 08/17/2023 HGB 11.4 (L) 09/05/2023 HGB 14.2 08/17/2023 HCT 35.6 (L) 09/05/2023 HCT 44.1 08/17/2023 PLATELET 170 09/05/2023 PLATELET 201 08/17/2023 Lab Results Component Value Date PT 13.8 08/29/2023 PT 11.4 05/03/2020 INR 1.1 08/29/2023 INR 1.1 05/03/2020 PTT 29.3 08/29/2023 PTT 29.9 05/03/2020 PTT 36.3 (H) 05/17/2019 ABG: Relevant microbiologic cultures: serum ag + for histo. Pulmonary Function Tests: PFT Results No data to display Imaging/Radiological Studies: I have personally and interpreted reviewed the radiographic [facility] Acute [facility]ational Therapy Evaluation Prior to Admission AM-PAC Score: PRIOR LEVEL AM-PAC Activity Raw Score: 24 Current AM-PAC score(s): CURRENT AM-PAC Activity Raw Score: 21 Based on the above AM-PAC score(s) and OT clinical judgment, discharge destination recommendation is: Home Mobility equipment available at home: rollator, straight cane, standard walker ADL equipment available at home: none Equipment recommendations for discharge: none Current therapy frequency recommendation(s) in acute: 1 time a week Precautions and Weightbearing Status: Telemetry Patient Safety Communication Prior to Visit: Nursing Subjective: Pt met sitting EOB, preparing his lines to go to . Expresses he has had UE tremors for a while and that he has been increasingly fatigued while completing ADL/IADLs. Pain: General Pain Documentation (Adult, OB, Peds) Presence of Pain: denies pain/discomfort Presence of Pain Score (Auto-calculated): 0 Home Setting Residence: House Lives With: alone First floor setup: bedroom, tub shower Number of stairs to enter home: 4 Stair Railings at Home: entry - with rail Mobility Equipment Available: rollator, straight cane, standard walker ADL Equipment Available: none Home Environment Details: Drives. No falls. Not working. Previous Level of Function Prior level ADL Overview: Independent with all ADLs Bed Mobility/Transfers: independent Ambulation Skills: independent Assistive Device: none used Level of Ambulation: community (Occasional use of rollator if feeling winded) Prior Level of Function Details: Brother lives nearby. Objective/Observation: Vitals/Vitals Responses to Treatment: Vital signs monitored in room throughout session, WFL and appropriately responsive throughout treatment. O2 Device: nasal cannula with humidification Flow (L/min): 3 Vision Screen Currently wearing corrective lenses: No, Distance Visual Impairments Observed?: No Speech Speech: no gross deficits noted Successful Methods (Communication Strategies): verbal speech Hearing Hearing: no gross deficits noted Cognition Overall Cognitive Status: Within Functional Limits Arousal/Alertness: Appropriate responses to stimuli Orientation Level: Oriented X4 Following Commands: Follows all commands and directions without difficulty Safety Judgment: Good awareness of safety precautions Awareness of Errors: Good awareness of errors made Deficits: Fully aware of deficits Attention Span: Appears intact Memory: Appears intact Problem Solving: Able to problem solve independently Cognition Comments: polite and cooperative ADLs: Eating Assistance: Independent Grooming Assistance: Independent Grooming Intervention/Details: washed hands at sink Bathing Assistance: Supervision UE Dressing Assistance: Independent LE Dressing Assistance: Supervision Toilet Assistance: Supervision Toileting Intervention/Details: completed pericare at toilet w/out phys assist Extremity Assessments: RUE Assessment RUE Assessment: Within Functional Limits LUE Assessment LUE Assessment: Within Functional Limits Balance: Sitting Balance Static Sitting-Level of Assistance: Independent Dynamic Sitting-Level of Assistance: Independent Standing Balance Static Standing-Level of Assistance: Independent Dynamic Standing-Level of Assistance: Independent Neuro: Sensation Overall Sensation: Intact Proprioception Proprioception: intact Skin and Edema: Mobility Assessment: Transfer Assessment: Sit to Stand Transfer [place] Level: Sit->Stand: independent Skilled Intervention/Details: Sit->Stand: x1 from EOB, x1 from toilet Stand to Sit Transfer [place] Level: Stand->Sit: independent Skilled Intervention/Details: Stand->Sit: x1 to toilet, x1 to EOB Functional Mobility: Functional Mobility [place] Level: Functional Mobility/Gait: independent Ambulation Distance (Feet): 20 Skilled Intervention/Details - Functional Mobility/Gait: pt performed functional mobility to/from RR w/ no overt LOB Outcome Score(s): CURRENT [facility] Daily Activity Inpatient Short Form Putting on/Taking Off Lower Body Clothin - A Little Assistance Bathin - A Little Assistance Toiletin - A Little Assistance Putting on/Taking Off Upper Body Clothin - No Assistance Groomin - No Assistance Eatin - No Assistance CURRENT [facility] Activity Raw Score: 21 CURRENT [facility] Activity Functional Limitation/Modifier: 32.79% Currently Impaired in Daily Activity - CJ Interventions: Assessment & Plan: Patient was admitted for fevers and sweats and seen for therapy evaluation related to decreased functional performance skills and independence in self care ADLs and functional mobility d/t deficits noted above. Exam findings include impairments in: balance, endurance. These impairments contribute to occupational performance limitations including dressing, bathing, toileting, functional mobility. The following factors impact the plan of care: Patient will benefit from skilled occupational therapy to address these impairments, occupational performance limitations, and participation restrictions. Patient's rehab potential is: fair, will monitor progress closely. Patient Instruction/Education this session: OT role, POC Plan for next session: activity tolerance training, energy conservation handout review Acute OT Goals Plan of Care by Fredi Mcfarlane OT at 09/05/2023 2:50 PM Version 1 of 1 Problem: OT - Dressing Goal: Lower Body Dressing Description: Pt will complete LE dressing tasks with independence for improved ability to complete self-care activities. Outcome: Ongoing Problem: OT - ADLs Goal: Toileting Description: Pt will complete toileting task including clothing management with independence for improved ability to safely complete self-care activities. Outcome: Ongoing Problem: OT - Endurance Goal: Endurance Functional Mobilty Around Home Description: Pt will complete distance needed for common household mobility independently. Outcome: Ongoing Problem: OT - Other Goal: Energy Conservation Description: Pt will follow energy conservation techniques appropriately 100% of the time during ADLs and functional mobility to conserve energy and maximize functional performance. Outcome: Ongoing OT treatment consisted of the following to work and progress towards the above goal(s): OT Evaluation and Treatment Time OT Evaluation (Low) Time Entry: 11 Evaluating Therapist: Fredi Mcfarlane OT Additional Details: OT Co-Eval/Treatment Information Co-evaluation/co-treatment performed?: No simultaneous skilled care performed OT Evaluation Complexity Occupational Profile and Client History: Low - brief history Assessment of Occupational Performance: Low (1-3 performance deficits) Clinical Decision/Performance Deficits: Low (problem-focused assessments w/limited treatment options) Time In: 1450 Time Out: 1501 Total Visit Time: 11 minutes Total Treatment Time (skilled, billable minutes): 11 minutes PPE used during patient interaction: facemask, gloves Patient location at end of session: edge of bed Alarms on at end of session: none, RN aware Needs in reach. Upon discontinuation of Acute Care Occupational Therapy Services or patient discharge from the hospital this note represents the current Occupational Therapy Discharge Summary. Acute Physical Therapy Evaluation Prior to Admission [facility] score(s): PRIOR LEVEL AM-PAC Mobility Raw Score: 24 Current AM-PAC score(s): CURRENT AM-PAC Mobility Raw Score: 21 Based on the above AM-PAC score(s) and PT clinical judgment, patient is a good candidate for discharge to Home Barriers to discharge home: None Mobility equipment available at home: rollator, straight cane, standard walker ADL equipment available at home: none Equipment needed for discharge: none Current therapy frequency recommendation in acute: Therapy Frequency: 2 times a week Activity Recommendations for outside of rehab session: Ambulate 2-3x/day in hallway with supervision and rollator. Encourage OOB as much as tolerated. Precautions and Weightbearing Status: Existing Precautions/Restrictions: fall, supplemental oxygen Telemetry Patient Safety Communication Prior to Visit: Nursing Subjective: Patient reports feeling okay this morning, breathing better than yesterday but still not great. Pain: General Pain Documentation (Adult, OB, Peds) Presence of Pain: denies pain/discomfort Presence of Pain Score (Auto-calculated): 0 DVPRS (Defense and Veterans Pain Rating Scale) DVPRS: Rest: 0- no pain DVPRS: Activity: 0- no pain Home Setting Residence: House Lives With: alone First floor setup: bedroom, tub shower Number of stairs to enter home: 4 Stair Railings at Home: entry - with rail Mobility Equipment Available: rollator, straight cane, standard walker ADL Equipment Available: none Home Environment Details: Drives. No falls. Not working. Previous Level of Function Prior level ADL Overview: Independent with all ADLs Bed Mobility/Transfers: independent Ambulation Skills: independent Assistive Device: none used Level of Ambulation: community (Occasional use of rollator if feeling winded) Prior Level of Function Details: Brother lives nearby. Objective/Observation: Vitals/Vitals Responses to Treatment: Spo2 at rest on 3LPM is 96%. To ron 93% with ambulation, endorses GARCIA 6-7/10. While he shaved he removed supplemental O2 for approx 8 minutes, still maintained SpO2 in 92-95%. Informed Rn. O2 Device: nasal cannula with humidification Flow (L/min): 3 Cognition Overall Cognitive Status: Within Functional Limits Arousal/Alertness: Appropriate responses to stimuli Orientation Level: Oriented X4 Following Commands: Follows all commands and directions without difficulty Safety Judgment: Good awareness of safety precautions Deficits: Fully aware of deficits Vision Screen Currently wearing corrective lenses: No, Distance (while driving) Visual Impairments Observed?: No Speech Speech: no gross deficits noted Successful Methods (Communication Strategies): verbal speech Hearing Hearing: no gross deficits noted Extremity Assessments: RUE Assessment RUE Assessment: Within Functional Limits LUE Assessment LUE Assessment: Within Functional Limits RLE Assessment RLE Assessment: Within Functional Limits LLE Assessment LLE Assessment: Within Functional Limits Sensation Overall Sensation: Intact Mobility Assessment: Supine to Sit Mobility [place] Level: Supine->Sit: modified independence Bed Features/Set-up: Supine->Sit: Head of bed elevated Sit to Supine Mobility [place] Level: Sit->Supine: not tested Balance: Sitting Balance Static Sitting-Level of Assistance: Independent Dynamic Sitting-Level of Assistance: Independent Sitting Balance Skilled Intervention/Details: Unsupported at EOB Standing Balance Static Standing-Level of Assistance: Modified independent Dynamic Standing-Level of Assistance: Supervision Standing-Balance Support: Rollator Skilled Rationale: Verbal cues, Breathing strategies, Cues for increased safety Standing Balance Skilled Intervention/Details: Maintained standing for 5 mins then 10 mins, preferentially steadying self on either rollator or object in environment. Transfer Assessment: Sit to Stand Transfer [place] Level: Sit->Stand: independent Skilled Intervention/Details: Sit->Stand: From EOB x 2 without difficulty. Stand to Sit Transfer [place] Level: Stand->Sit: independent Assistive Device: Stand->Sit: armed chair Skilled Rationale: Verbal cues, Positioning Gait/Functional Mobility: Gait Assessment [place] Level: Gait: stand-by assist Assistive Device: Gait: rollator Ambulation Distance (Feet): 400 Gait Deviations Identified: decreased grace, decreased gait speed Gait Skilled Rationale: verbal, upright posture, increase step length, increase foot clearance Skilled Intervention/Details - Gait: Reasonable foot clearnce without loss of balance but endorsing dyspnea as 6-7/10. Stairs: Stairs Assessment [place] Level: Stair Negotiation: not tested Outcome Score(s): CURRENT AM-PAC Basic Mobility Inpatient Short Form Turning over in bed: 4 - No Assistance Sitting/standing from chair: 4 - No Assistance Moving from lying on back to sittin - No Assistance Moving to and from bed to chair: 3 - A Little Assistance Walk in hospital room: 3 - A Little Assistance Climbing 3-5 steps with a railin - A Little Assistance CURRENT AM-PAC Mobility Raw Score: 21 CURRENT [facility] Mobility Functional Limitation/Modifier: 28.97% Currently Impaired in Basic Mobility - CJ Interventions: Assessment & Plan: Patient was admitted for ongoing fevers and sweats with suspected HRS and found with PNA and seen for therapy evaluation related to impaired functional endurance precluding typical ability to mobilize in order to care for self. Exam findings include impairments in: Gait/Locomotion, Aerobic capacity/endurance, Ventilation and respiration/gas exchange. These impairments contribute to functional limitations including Decreased functional mobility. Current clinical presentation is Stable - unchanging or predictable (Low). 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 Patient will benefit from skilled physical therapy to address these impairments, functional limitations, and participation restrictions and has good rehab potential to achieve therapy goals. Planned Therapy Interventions: balance training, endurance, functional activity tolerance, gait training Patient Instruction/Education this session: Energy conservation/breathing strategies. Educated in methods to maintain strength and promote independence while in hospital to prevent deconditioning and functional decline. Provided mobility-related education including precautions associated with current functional level and ongoing disease processes in order to promote mobility and maintain functional independence while in acute environment. Post-session safety check/medical line integrity: All lines/tubes/drains intact at the conclusion of the physical therapy session unless otherwise documented in this note. Plan for next session: Progress gait distance, high level balance, and assess stairs. Acute PT Goals Plan of Care by David Sutherland PT at 09/05/2023 9:25 AM Version 1 of 1 Problem: PT - Balance/Coordination/Neuro Re-Education Goal: Standing Dynamic/Static Balance Description: Pt will perform standing balance tasks for 15 minutes with modified independence with least restrictive device in order to improve functional mobility and safety with standing tasks. Outcome: Ongoing Problem: PT - Mobility Goal: Ambulation Description: Pt will ambulate 500 feet with least restrictive device with modified independence to improve ability to navigate home environment. Outcome: Ongoing Goal: Stairs Description: Pt will ascend/descend 10 stairs with one railings with standby assistance with least restrictive device to improve ability to perform functional mobility necessary in recommended discharge environment. Outcome: Ongoing PT treatment consisted of the following to progress towards the above goal(s): PT Evaluation and Treatment Time PT Evaluation (Low) Time Entry: 28 Evaluating Therapist: David Sutherland PT Additional Details: PT Co-Eval/Treatment Information Co-evaluation/co-treatment performed?: No simultaneous skilled care performed Evaluation Complexity Components History: Moderate (1-2 personal factors and/or comorbidities) Body Systems Review: Moderate (Addressing a total of 3 or more elements) Clinical Presentation: Stable - unchanging or predictable (Low) Clinical Decision Making: Low Time In: 0925 Time Out: 1000 Total Visit Time: 35 minutes Total Treatment Time (skilled, billable minutes): 28 minutes PPE used during patient interaction: facemask, gloves Patient location at end of session: chair, lines intact Alarms on at end of session: RN aware Needs in reach. Upon discontinuation of Acute Care Physical Therapy Services or patient discharge from the hospital this note represents the current Physical Therapy Discharge Summary. Internal Medicine Daily Progress Note Patient: George Styles, 1970, [id number] Physician: Evan Kelly MD, PGY-1, TM1 service Subjective/Interval History: No acute events overnight. Patient saturating appropriately on 4L NC. He denies shortness of breath, chest pain, headaches, abdominal pain. No increased leg swelling. He has been utilizing his bedside incentive spirometry. All questions answered by the team. Objective: Vitals: 09/05/23321 BP: 102/63 Pulse: 67 Resp: 19 Temp: 97.8 F (36.6 C) SpO2: 95% O2 Device: nasal cannula (09/05/23321) Flow (L/min): 4 (09/05/23321) Gen: Alert, Awake, NAD, tired-appearing Eyes: EOMI, no icterus ENT: MMM, trachea midline Resp: Bilateral clear to auscultation, non labored breathing on 4L NC Cardio: RRR, normal S1, S2, no M/R/G. No JENSEN. GI: S/NT/ND, NABS MSK: No joint effusions or erythema: Skin: No jaundice or rash Neuro: Moving all 4 extremities spontaneously Psych: Appropriate for clinical situation. Data Review: WBC/Hgb/Hct/Plts: 4.24/11.4/35.6/170 (09/05 552) Na/K+/Phos/Mg/Ca: 130/4.2/--/--/-- (09/04 957) Bun/Creat/Cl/CO2/Glucose: --/--/--/--/159 (09/04 957) Lab Results Component Value Date SPGRVTYUR 1.015 08/29/2023 GLUCOSEURINE Negative 08/29/2023 KETONESURINE Negative 08/29/2023 BLOODURINE Trace (A) 08/29/2023 NITRITESURIN Negative 08/29/2023 LEUKOCESTUR Negative 08/29/2023 WBCURINE 0 - 5 08/29/2023 RBCURINE 3-5 (A) 08/29/2023 BACTERIAURIN ABSENT 08/29/2023 Blood cultures 08/28 NGTD Histo/Blasto positive. Ag 5.3 XR CHEST PORTABLE Final Result IMPRESSION: Waxing and waning airspace opacities in the left lung likely infectious/inflammatory process. CHEST PORTABLE Final Result IMPRESSION: Increasing focal consolidation in the left suprahilar region, likely corresponding to pneumonia seen on recent chest CT. I personally viewed and interpreted these images and I have reviewed and approved this report. ABDOMEN/PELVIS WITHOUT CONTRAST Final Result IMPRESSION: 1. Interval removal of nephrostomy tube from right lower quadrant transplant kidney. No stones or hydronephrosis. 2. New prominent to borderline enlarged upper abdominal and retroperitoneal nodes lymph nodes as above, which are nonspecific but may be secondary to a lymphoproliferative disorder or granulomatous process.. Recommend clinical correlation. 3. Prior liver transplant without focal hepatic lesion. No ascites or peritransplant fluid collections. Prominent perigastric collateral vessels, similar to prior. 4. Groundglass attenuation in the lung bases with the basilar atelectatic changes 5. Nonobstructive bowel gas pattern. Normal appendix 6. No abdominopelvic ascites. I personally viewed and interpreted these images and I have reviewed and approved this report. CHEST WITHOUT CONTRAST Final Result IMPRESSION: 1. Superior segment of the left lower lobe consolidative pneumonia with trace fluid or mild thickening of the adjacent minor fissure. 2. Innumerable punctate centrilobular nodules throughout both lungs are likely infectious as well in an immunocompromised patient. 3. Few mildly enlarged lymph nodes in the AP window are likely reactive. 4. Coronary artery disease. RENAL TRANSPLANT SCAN Final Result IMPRESSION: Questionable stones in the transplant kidney with normal resistive indices and no hydronephrosis. Possible bladder stone. If confirmation of stones is desired, consider noncontrast CT scanning. I personally viewed and interpreted these images and I have reviewed and approved this report. CHEST PORTABLE Final Result IMPRESSION: Prominent heart without pulmonary edema. Clear lungs. Assessment/Plan: George Styles is a 53 y.o. 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 His post-transplant course was noteworthy for nephrostomy tube (05/17/2022-09/10/2022) due to concern for ureteral stone. He presents as a direct admission for fever, cough, for infectious workup Plans for Today: - Amphotericin B 3 mg/kg Q24hr - Itraconazole 200mg Q8H for 9 doses, then BID - Hold atorvastatin - PCU - 500cc bolus LR - oxygen prn to maintain saturations >92% - Incentive spirometry Histoplasma/Blastomyces Infection without sepsis: Histo/Blasto testing for serum antigen 5.3, unable to differentiate between them. Patient with recurrent fevers of unknown origin starting 07/23. CT Chest with findings as above. Patient on 4L NC. - Blood cultures NGTD - immunocompromised respiratory panel all negative - Infectious Disease consulted, appreciate recommendations -start liposomal ampho B 3mg/kg q24h w/ premeds in order set -start PO itraconazole liquid 200mg q8h x9 doses then q12h -trough in 10-14d (may be as outpt) -will need to adjust IS dosing 2/2 itra - Pulmonology consulted - bronchoscopy performed 09/02 Acute Hypoxic Respiratory Insufficiency Failure, stable Patient requiring 3-4L NC during admission. Does not report oxygen at home. He has a 23 pack year smoking history, however quit and does not carry a diagnosis of COPD. Likely related to CT findings with workup as below. He briefly required non-rebreather and high flow nasal cannula when getting bronchoscopy, indicating patient likely has low reserve. 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 He again had increased oxygen requirements on 106 am that resolved with repositioning and supportive care. Oxygen desaturations likely related to mucous plugging. - continue to monitor - oxygen as needed to maintain saturations >92% - incentive spirometry - low threshold to escalate care - histo/blasto treatment as above Acute Kidney Injury with Kidney Transplant: Patient is s/p combined liver/kidney transplant in 04/13/20. Prior to presentation, patient takes tacrolimus 0.5mg BID and mycophenolate 540mg BID for immunosuppression. Baseline creatinine appears to be 1.1-1.4, though variable. Bmup in creatinine today. Patient on amphotericin so keeping a close monitor and will give 500cc LR bolus. - Current immunosuppression: tacrolimus 0.5mg daily and mycophenolate 360mg BID - UA with trace blood and 3-5 Rbc on admission - Transplant renal US with possible stones - CT A/P: Right lower quadrant transplant kidney is unremarkable - Recent testing prior to admission: CMV serum PCR negative, BK serum negative, EBV negative - 500cc LR bolus - Renally dose all medications as needed. - continue to monitor in setting of amphotericin treatment S/p Liver Transplant: combined liver/kidney transplant in 04/13/20. Patient currently takes tacrolimus 0.5mg BID and mycophenolate 360mg BID for immunosuppression. - Immunosuppresion management as above - Hepatic function panel unremarkable on admission Chronic Medical Conditions Essential Hypertension- controlled - continue home amlodipine 5mg, holding losartan 50mg BID CAD: non-obstructive CAD on [facility] 2018. - continue home aspirin 81mg daily, holding atorvastatin 20mg daily Gout: continue home allopurinol 200mg daily BPH: continue home flomax 0.4mg daily DVT PPX: SQH Code Status: Full Code Disposition: Pending clinical course. Anticipate eventual discharge home. Discussed with team and attending, Kevin Sage MD, on rounds. Signed, Evan Kelly MD Attending Physician Addendum I saw and personally examined Mr. Styles with the renal team. I discussed the findings and plan of the case. I agree with the history, physical examination, and medical decisions as outlined above. VS Temp: [97.6 F (36.4 C)-99.8 F (37.7 C)] 97.6 F (36.4 C) Pulse (Heart Rate): [67-100] 84 Resp Rate: [19-20] 20 BP: (102-123)/(53-63) 104/53 O2 Sat (%): [93 %-97 %] 95 % Weight: [93.7 kg (206 lb 9.6 oz)] 93.7 kg (206 lb 9.6 oz) I/O last 3 completed shifts: In: 2242.3 [P.O.:1036; I.V.:1048.7; IV Piggyback:157.7] Out: 1625 [Urine:1625] No intake/output data recorded. LABS Lab Results Component Value Date WBC 4.24 09/05/2023 HGB 11.4 (L) 09/05/2023 PLATELET 170 09/05/2023 Lab Results Component Value Date SODIUM 135 09/05/2023 POTASSIUM 4.2 09/05/2023 CHLORIDE 107 09/05/2023 CO2 20 (L) 09/05/2023 BUN 18 09/05/2023 CREATSERUM 1.43 (H) 09/05/2023 GLUCOSE 111 (H) 09/05/2023 Lab Results Component Value Date CALCIUM 9.2 08/17/2023 PHOSPHORUS 3.1 07/03/2023 Lab Results Component Value Date CREATSERUM 1.43 (H) 09/05/2023 CREATSERUM 1.22 09/04/2023 CREATSERUM 1.20 09/03/2023 CREATSERUM 1.48 08/17/2023 CREATSERUM 1.04 07/03/2023 CREATSERUM 1.17 04/28/2023 CREATSERUM 5.05 (H) 11/19/2018 Kevin Sage MD, [employer] Supervisor of Clinical Medicine [facility] Transplant Infectious Disease (Team 3) Progress Note Date of Service: 09/04/23 Subjective: ERT this am for hypoxemia, this afternoon feels a bit better overall Physical Exam: Temp: [98 F (36.7 C)-101.2 F (38.4 C)] 98.1 F (36.7 C) Pulse (Heart Rate): [82-120] 89 Resp Rate: [16-30] 21 BP: (114-138)/(56-69) 114/56 O2 Sat (%): [84 %-98 %] 96 % Weight: [91.7 kg (202 lb 1.6 oz)] 91.7 kg (202 lb 1.6 oz) General: NAD, lying comfortably in bed HENT: NC/AT, normal dentition, moist mucus membranes Eyes: EOMI, anicteric sclerae, no conjunctival erythema Respiratory: CTAB, no wheezes, rales or rhonchi, no accessory muscle use Cardiovascular: RRR, S1 S2, no murmurs Abdomen: soft, nontender, nondistended Skin: warm and dry, no rashes or ulcerations Psychiatric: appropriate affect, alert and oriented x3 Body mass index is 31.65 kg/m . Current Medications: Acetaminophen 325 mg Oral Q24H Allopurinol 200 mg Oral Daily amLODIPine 5 mg Oral Q24H amphotericin B LIPOSOME (AMBISOME) IVPB 3 mg/kg (Adjusted) Intravenous Q24H aspirin 81 mg Oral Daily [Held by provider] Atorvastatin 20 mg Oral QHS diphenhydrAMINE 25 mg Oral Q24H faMOTIdine 20 mg Oral BID Gabapentin 400 mg Oral QHS heparin 5,000 Units Subcutaneous Q8H Itraconazole 200 mg Oral Q8H [START ON 09/06/2023] Itraconazole 200 mg Oral BID [START ON 09/05/2023] magnesium oxide 400 mg Oral Daily Mycophenolate sodium 360 mg Oral Q12HNS Sodium chloride 0.9% 500 mL Intravenous Q24H Sodium chloride 0.9% 500 mL Intravenous Q24H Sulfamethoxazole-trimethoprim 1 tablet Oral Once per day on Thu [Held by provider] Tacrolimus 0.5 mg Oral Daily Tamsulosin HCl 0.4 mg Oral Daily Labs(personally reviewed): No leukocytosis Serum Histo blasto ag pos 5.3 Urine histo neg Micro (personally rewiewed): RVP negative Imaging (personally reviewed): 08/31 CT C/A/P 1. Superior segment of the left lower lobe consolidative pneumonia with trace fluid or mild thickening of the adjacent minor fissure. 2. Innumerable punctate centrilobular nodules throughout both lungs are likely infectious as well in an immunocompromised patient. 3. Few mildly enlarged lymph nodes in the AP window are likely reactive. 4. Coronary artery disease. 1. Interval removal of nephrostomy tube from right lower quadrant transplant kidney. No stones or hydronephrosis. 2. New prominent to borderline enlarged upper abdominal and retroperitoneal nodes lymph nodes as above, which are nonspecific but may be secondary to a lymphoproliferative disorder or granulomatous process.. Recommend clinical correlation. 3. Prior liver transplant without focal hepatic lesion. No ascites or peritransplant fluid collections. Prominent perigastric collateral vessels, similar to prior. 4. Groundglass attenuation in the lung bases with the basilar atelectatic changes 5. Nonobstructive bowel gas pattern. Normal appendix 6. No abdominopelvic ascites. 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 Serum histo/blasto antigen is positive. Urine is negative. Some BAL studies pending but this is consistent with mod-severe pulmonary histo. In light of ongoing hypoxemia would start with ampho-B while also loading with itraconazole, this way we can stop ampho relatively quick if he improves markedly or develops FAYE but still be closer to a steady state of itraconazole. On more oxygen today, unclear if natural progression of infection vs inflammatory reaction related to treatment - if continues to worsen could consider steroids but hold for now. Recommendations: -continue liposomal ampho B 3mg/kg q24h -follow cr, lytes -continue PO itraconazole liquid 200mg q8h x9 doses then q12h -trough in 10-14d (may be as outpt) -will need to adjust IS dosing 2/2 itra -follow rest of pending workup Transplant ID (Team 3) will continue to follow. Please Epic message or page [phone] with questions. Evan White DO Transplant Infectious Diseases Images from the original note were not included. Internal Medicine Daily Progress Note Patient: George Styles, 1970, [id number] Physician: Evan Kelly MD, PGY-1, TM1 service Subjective/Interval History: Patient with increasing oxygen requirements this morning with ERT called. Please refer to note by Dr. Serrano on same day for more details. Patient did not endorse shortness of breath throughout event, however did have wet cough. Oxygen requirements have improved throughout the day. All questions answered by the team on rounds. Objective: Vitals: 09/04/23 1305 BP: Pulse: Resp: Temp: SpO2: 98% O2 Device: high-flow nasal cannula (09/04/23 1305) Flow (L/min): 8 (09/04/23 1305) Gen: Alert, Awake, NAD, tired-appearing Eyes: EOMI, no icterus ENT: MMM, trachea midline Resp: Bilateral clear to auscultation, no labored breathing on 1L NC Cardio: RRR, normal S1, S2, no M/R/G. No JENSEN. GI: S/NT/ND, NABS MSK: No joint effusions or erythema: Skin: No jaundice or rash Neuro: Moving all 4 extremities spontaneously Psych: Appropriate for clinical situation. Data Review: WBC/Hgb/Hct/Plts: 4.57/12.3/38.0/173 (09/04 615-09/04 957) Na/K+/Phos/Mg/Ca: 130/4.2/--/1.4/-- (09/04 615-09/04 957) Bun/Creat/Cl/CO2/Glucose: 15/1.22/104/18/159 (09/04 615-09/04 957) Lab Results Component Value Date SPGRVTYUR 1.015 08/29/2023 GLUCOSEURINE Negative 08/29/2023 KETONESURINE Negative 08/29/2023 BLOODURINE Trace (A) 08/29/2023 NITRITESURIN Negative 08/29/2023 LEUKOCESTUR Negative 08/29/2023 WBCURINE 0 - 5 08/29/2023 RBCURINE 3-5 (A) 08/29/2023 BACTERIAURIN ABSENT 08/29/2023 Blood cultures 08/28 NGTD Histo/Blasto positive. Ag 5.3 XR CHEST PORTABLE XR CHEST PORTABLE Final Result IMPRESSION: Increasing focal consolidation in the left suprahilar region, likely corresponding to pneumonia seen on recent chest CT. I personally viewed and interpreted these images and I have reviewed and approved this report. ABDOMEN/PELVIS WITHOUT CONTRAST Final Result IMPRESSION: 1. Interval removal of nephrostomy tube from right lower quadrant transplant kidney. No stones or hydronephrosis. 2. New prominent to borderline enlarged upper abdominal and retroperitoneal nodes lymph nodes as above, which are nonspecific but may be secondary to a lymphoproliferative disorder or granulomatous process.. Recommend clinical correlation. 3. Prior liver transplant without focal hepatic lesion. No ascites or peritransplant fluid collections. Prominent perigastric collateral vessels, similar to prior. 4. Groundglass attenuation in the lung bases with the basilar atelectatic changes 5. Nonobstructive bowel gas pattern. Normal appendix 6. No abdominopelvic ascites. I personally viewed and interpreted these images and I have reviewed and approved this report. CHEST WITHOUT CONTRAST Final Result IMPRESSION: 1. Superior segment of the left lower lobe consolidative pneumonia with trace fluid or mild thickening of the adjacent minor fissure. 2. Innumerable punctate centrilobular nodules throughout both lungs are likely infectious as well in an immunocompromised patient. 3. Few mildly enlarged lymph nodes in the AP window are likely reactive. 4. Coronary artery disease. RENAL TRANSPLANT SCAN Final Result IMPRESSION: Questionable stones in the transplant kidney with normal resistive indices and no hydronephrosis. Possible bladder stone. If confirmation of stones is desired, consider noncontrast CT scanning. I personally viewed and interpreted these images and I have reviewed and approved this report. CHEST PORTABLE Final Result IMPRESSION: Prominent heart without pulmonary edema. Clear lungs. Assessment/Plan: George Styles is a 53 y.o. 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 His post-transplant course was noteworthy for nephrostomy tube (05/17/2022-09/10/2022) due to concern for ureteral stone. He presents as a direct admission for fever, cough, for infectious workup Plans for Today: - Amphotericin B 3 mg/kg Q24hr - Itraconazole 200mg Q8H for 9 doses, then BID - Hold atorvastatin - Upgrade to PCU - oxygen prn to maintain saturations >92% - Incentive spirometry Histoplasma/Blastomyces Infection without sepsis: Histo/Blasto testing for serum antigen 5.3, unable to differentiate between them. Patient with recurrent fevers of unknown origin starting 07/23. CT Chest with findings as above. Patient on 4L NC intermittently - Blood cultures NGTD - immunocompromised respiratory panel all negative - Infectious Disease consulted, appreciate recommendations -start liposomal ampho B 3mg/kg q24h w/ premeds in order set -start PO itraconazole liquid 200mg q8h x9 doses then q12h -trough in 10-14d (may be as outpt) -will need to adjust IS dosing 2/2 itra - Pulmonology consulted - bronchoscopy performed 09/02 Acute Hypoxic Respiratory Insufficiency Failure Patient requiring 3-4L NC during admission. Does not report oxygen at home. He has a 23 pack year smoking history, however quit and does not carry a diagnosis of COPD. Likely related to CT findings with workup as below. He briefly required non-rebreather and high flow nasal cannula when getting bronchoscopy today, indicating patient likely has low reserve. 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 Patient currently takes tacrolimus 0.5mg BID and mycophenolate 540mg BID for immunosuppression. Baseline creatinine appears to be 1.1-1.4, though variable. - UA with trace blood and 3-5 Rbc on admission - Transplant renal US with possible stones - CT A/P: Right lower quadrant transplant kidney is unremarkable - Recent testing prior to admission: CMV serum PCR negative, BK serum negative, EBV negative - Renally dose all medications as needed. - continue to monitor in setting of amphotericin treatment S/p Liver Transplant: combined liver/kidney transplant in 04/13/20. Patient currently takes tacrolimus 0.5mg BID and mycophenolate 360mg BID for immunosuppression. - Immunosuppresion management as above - Hepatic function panel unremarkable on admission Chronic Medical Conditions Essential Hypertension- controlled - continue home amlodipine 5mg, holding losartan 50mg BID CAD: non-obstructive CAD on [facility] 2019. - continue home aspirin 81mg daily, holding atorvastatin 20mg daily Gout: continue home allopurinol 200mg daily BPH: continue home flomax 0.4mg daily DVT PPX: SQH Code Status: Full Code Disposition: Pending clinical course. Anticipate eventual discharge home. Discussed with team and attending, Kevin Sage MD, on rounds. Signed, Evan Kelly MD Attending Physician Addendum I saw and personally examined Mr. Styles with the renal team. I discussed the findings and plan of the case. I agree with the history, physical examination, and medical decisions as outlined above. VS Temp: [98.1 F (36.7 C)-101.2 F (38.4 C)] 99.8 F (37.7 C) Pulse (Heart Rate): [82-120] 100 Resp Rate: [16-30] 19 BP: (114-138)/(56-69) 123/57 O2 Sat (%): [84 %-98 %] 93 % I/O last 3 completed shifts: In: 2731.2 [P.O.:1500; I.V.:1043; IV Piggyback:188.3] Out: 2585 [Urine:2585] No intake/output data recorded. LABS Lab Results Component Value Date WBC 4.57 09/04/2023 HGB 12.3 (L) 09/04/2023 PLATELET 173 09/04/2023 Lab Results Component Value Date SODIUM 130 (L) 09/04/2023 POTASSIUM 4.2 09/04/2023 CHLORIDE 104 09/04/2023 CO2 18 (L) 09/04/2023 BUN 15 09/04/2023 CREATSERUM 1.22 09/04/2023 GLUCOSE 159 (H) 09/04/2023 Lab Results Component Value Date CALCIUM 9.2 08/17/2023 PHOSPHORUS 3.1 07/03/2023 Lab Results Component Value Date CREATSERUM 1.22 09/04/2023 CREATSERUM 1.20 09/03/2023 CREATSERUM 1.25 09/02/2023 CREATSERUM 1.48 08/17/2023 CREATSERUM 1.04 07/03/2023 CREATSERUM 1.17 04/28/2023 CREATSERUM 5.05 (H) 11/19/2018 This morning, patient had increasing oxygen requirements requiring ERT to be called I was at bedside during ERT Courses above Increasing oxygen delivery Patient is improved this afternoon On liposomal amphotericin and P.o. itraconazole Current Immunosuppressive Medication(s) Immunosuppressive Agents Mycophenolate sodium (MYFORTIC) tablet DR 360 mg 360 mg, Oral, EVERY 12 HOURS NON-STANDARD, Give on an empty stomach. Swallow tablet whole; do not crush, split or chew. Contact pharmacy if alternate route or dose is needed. Tacrolimus (PROGRAF) capsule 0.5 mg ([Held by provider] since 09/04/2023 8:20 AM) 0.5 mg, Oral, DAILY, Do not split, break, crush, or open doses of this medication. Contact pharmacy if altered dose or route needed. Lab Results Component Value Date TACROLIMUS 3.6 (L) 09/04/2023 TACROTRGHMAN 4.1 08/17/2023 On significantly reduced immunosuppression given interaction with P 450 system Kevin Sage MD, [employer] Supervisor of Clinical Medicine [facility] ERT Note: ERT called by RN 2/2 patient remaining on increased O2 from recent baseline and RT not yet at badside to assess, get ABG and provide treatment as needed. STAT team met at bedside. On arrival, patient saturating 95% on 9L HFNC. Reports feeling better than on previous assessment. Fever resolved. Tachycardia improving. Patient shown how to use IS during ERT. START RT able to obtain ABG. Latest Reference Range & Units 09/04/23 09:57 Sample Source Arterial pH 7.35 - 7.45 7.48 (H) pCO2 32 - 48 mm Hg 30 (L) pO2 83 - 108 mm Hg 62 (L) HCO3 22 - 28 mmol/L 22 O2 Saturation 94 - 98 % 92 (L) (H): Data is abnormally high (L): Data is abnormally low Dicussed previous episodes of acute desaturations (has happened a few time this stay) and that patient generally patient recovers fully within and hour- which appears to be the case ongoing this time as well. Suspect mucus plugging, derecruitment in setting of cough, patient not taking many deep breath due to starting cough. Fluid up, but only minimal basilar crackles- low concern for cause being pulmonary edema. Plan: - HFNC for goal saturation >88% for now. - Remain PCU - Encourage breath through nose - PEP for secretion clearance PRN - Saline neb PRN - Continue IS - If no improvement in 1 hr or worsening: - CXR - NRB -> HHF -> NIMV Laurel Serrano MD, PhD Internal Medicine and Pediatrics PGY-3 [facility] Brief plan of care update: Called to bedside with MD Kelly due to patient with escalating respiratory requirements. Assessed patient who had desaturated to mid 80's while on 2L NC. Increased to 5L but remained with saturations below 80%. Of note, patient does not feel very short of breath, just feels feverish with chills. Excalated to 9L per HFNC with improvement in saturations to 88-92%. Discussed possible escalation of respiratory support if needed with patient, who expressed understanding. Patient feeling better, wanting to eat breakfast. Unclear cause of acute desaturations (has happened a few time this stay) but generally patient recovers fully within and hour. May be mucus plugging, derecruitment in setting of cough, patient not taking many deep breath due to starting cough. No wheezing. Fluid up, but only minimal basilar crackles- low concern for cause being pulmonary edema. Plan: - HFNC for goal saturation >88% for now. - Upgrade to PCU - Encourage breath through nose - PEP for secretion clearance PRN - If no improvement in 1 hr or worsening: - CXR - Consider saline neb - NRB-> HHF-> NIMV Laurel Serrano MD, PhD Internal Medicine and Pediatrics PGY-3 [facility] Transplant Infectious Disease (Team 3) Progress Note Date of Service: 09/03/23 Subjective: feels about the same, ongoing SOB at rest Physical Exam: Temp: [98.5 F (36.9 C)-99.5 F (37.5 C)] 98.8 F (37.1 C) Pulse (Heart Rate): [70-138] 77 Resp Rate: [15-24] 15 BP: (111-162)/(55-74) 111/55 O2 Sat (%): [88 %-94 %] 92 % General: NAD, lying comfortably in bed HENT: NC/AT, normal dentition, moist mucus membranes Eyes: EOMI, anicteric sclerae, no conjunctival erythema Respiratory: CTAB, no wheezes, rales or rhonchi, no accessory muscle use Cardiovascular: RRR, S1 S2, no murmurs Abdomen: soft, nontender, nondistended Skin: warm and dry, no rashes or ulcerations Psychiatric: appropriate affect, alert and oriented x3 Body mass index is 31.69 kg/m . Current Medications: Acetaminophen 325 mg Oral Q24H Allopurinol 200 mg Oral Daily amLODIPine 5 mg Oral Q24H amphotericin B LIPOSOME (AMBISOME) IVPB 3 mg/kg (Adjusted) Intravenous Once [START ON 09/04/2023] amphotericin B LIPOSOME (AMBISOME) IVPB 3 mg/kg (Adjusted) Intravenous Q24H aspirin 81 mg Oral Daily Atorvastatin 20 mg Oral QHS diphenhydrAMINE 25 mg Oral Q24H faMOTIdine 20 mg Oral BID Gabapentin 400 mg Oral QHS heparin 5,000 Units Subcutaneous Q8H Mycophenolate sodium 540 mg Oral Q12HNS Sodium chloride 0.9% 500 mL Intravenous Q24H Sodium chloride 0.9% 500 mL Intravenous Q24H [START ON 09/04/2023] Sulfamethoxazole-trimethoprim 1 tablet Oral Once per day on Thu Tacrolimus 0.5 mg Oral Q12H Tamsulosin HCl 0.4 mg Oral Daily Labs(personally reviewed): No leukocytosis Serum Histo blasto ag pos 5.3 Urine histo neg Micro (personally rewiewed): RVP negative Imaging (personally reviewed): 08/31 CT C/A/P 1. Superior segment of the left lower lobe consolidative pneumonia with trace fluid or mild thickening of the adjacent minor fissure. 2. Innumerable punctate centrilobular nodules throughout both lungs are likely infectious as well in an immunocompromised patient. 3. Few mildly enlarged lymph nodes in the AP window are likely reactive. 4. Coronary artery disease. 1. Interval removal of nephrostomy tube from right lower quadrant transplant kidney. No stones or hydronephrosis. 2. New prominent to borderline enlarged upper abdominal and retroperitoneal nodes lymph nodes as above, which are nonspecific but may be secondary to a lymphoproliferative disorder or granulomatous process.. Recommend clinical correlation. 3. Prior liver transplant without focal hepatic lesion. No ascites or peritransplant fluid collections. Prominent perigastric collateral vessels, similar to prior. 4. Groundglass attenuation in the lung bases with the basilar atelectatic changes 5. Nonobstructive bowel gas pattern. Normal appendix 6. No abdominopelvic ascites. 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 Serum histo/blasto antigen is positive. Urine is negative. Some BAL studies pending but this is consistent with mod-severe pulmonary histo. In light of ongoing hypoxemia would start with ampho-B while also loading with itraconazole, this way we can stop ampho relatively quick if he improves markedly or develops FAYE but still be closer to a steady state of itraconazole. Recommendations: -start liposomal ampho B 3mg/kg q24h w/ premeds in order set -start PO itraconazole liquid 200mg q8h x9 doses then q12h -trough in 10-14d (may be as outpt) -will need to adjust IS dosing 2/2 itra -follow rest of pending workup These recommendations were discussed with the primary team. Transplant ID (Team 3) will continue to follow. Please Epic message or page [phone] with questions. Evan White DO Transplant Infectious Diseases Internal Medicine Daily Progress Note Patient: George Styles, 1970, [id number] Physician: Evan Kelly MD, PGY-1, TM1 service Subjective/Interval History: Patient briefly requiring 5L NC overnight, was weaned down to 1L NC this morning. His labs returned positive for histo/blasto and Infectious Disease counselled patient on illness. We are starting amphotericin and itraconazole for treatment. Patient denies shortness of rbeath at rest. He does become tachycardic and short of breath with activity. All questions answered by the team. Objective: Vitals: 09/03/23 1419 BP: 111/55 Pulse: 77 Resp: 15 Temp: 98.8 F (37.1 C) SpO2: 92% O2 Device: nasal cannula (09/03/23 1055) Flow (L/min): 2 (09/03/23 1055) Gen: Alert, Awake, NAD, tired-appearing Eyes: EOMI, no icterus ENT: MMM, trachea midline Resp: Bilateral clear to auscultation, no labored breathing on 1L NC Cardio: RRR, normal S1, S2, no M/R/G. No JENSEN. GI: S/NT/ND, NABS MSK: No joint effusions or erythema: Skin: No jaundice or rash Neuro: Moving all 4 extremities spontaneously Psych: Appropriate for clinical situation. Data Review: WBC/Hgb/Hct/Plts: 4.36/12.8/39.6/222 (09/03 402) Na/K+/Phos/Mg/Ca: 136/4.1/--/1.6/-- (09/03 402) Bun/Creat/Cl/CO2/Glucose: 17/1.20/104/24/112 (09/03 402) Lab Results Component Value Date SPGRVTYUR 1.015 08/29/2023 GLUCOSEURINE Negative 08/29/2023 KETONESURINE Negative 08/29/2023 BLOODURINE Trace (A) 08/29/2023 NITRITESURIN Negative 08/29/2023 LEUKOCESTUR Negative 08/29/2023 WBCURINE 0 - 5 08/29/2023 RBCURINE 3-5 (A) 08/29/2023 BACTERIAURIN ABSENT 08/29/2023 Blood cultures 08/28 NGTD Histo/Blasto positive. Ag 5.3 XR CHEST PORTABLE Final Result IMPRESSION: Increasing focal consolidation in the left suprahilar region, likely corresponding to pneumonia seen on recent chest CT. I personally viewed and interpreted these images and I have reviewed and approved this report. ABDOMEN/PELVIS WITHOUT CONTRAST Final Result IMPRESSION: 1. Interval removal of nephrostomy tube from right lower quadrant transplant kidney. No stones or hydronephrosis. 2. New prominent to borderline enlarged upper abdominal and retroperitoneal nodes lymph nodes as above, which are nonspecific but may be secondary to a lymphoproliferative disorder or granulomatous process.. Recommend clinical correlation. 3. Prior liver transplant without focal hepatic lesion. No ascites or peritransplant fluid collections. Prominent perigastric collateral vessels, similar to prior. 4. Groundglass attenuation in the lung bases with the basilar atelectatic changes 5. Nonobstructive bowel gas pattern. Normal appendix 6. No abdominopelvic ascites. I personally viewed and interpreted these images and I have reviewed and approved this report. CHEST WITHOUT CONTRAST Final Result IMPRESSION: 1. Superior segment of the left lower lobe consolidative pneumonia with trace fluid or mild thickening of the adjacent minor fissure. 2. Innumerable punctate centrilobular nodules throughout both lungs are likely infectious as well in an immunocompromised patient. 3. Few mildly enlarged lymph nodes in the AP window are likely reactive. 4. Coronary artery disease. RENAL TRANSPLANT SCAN Final Result IMPRESSION: Questionable stones in the transplant kidney with normal resistive indices and no hydronephrosis. Possible bladder stone. If confirmation of stones is desired, consider noncontrast CT scanning. I personally viewed and interpreted these images and I have reviewed and approved this report. CHEST PORTABLE Final Result IMPRESSION: Prominent heart without pulmonary edema. Clear lungs. Assessment/Plan: George Styles is a 53 y.o. 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 His post-transplant course was noteworthy for nephrostomy tube (05/17/2022-09/10/2022) due to concern for ureteral stone. He presents as a direct admission for fever, cough, for infectious workup Plans for Today: - Follow-up BAL - Amphotericin B 3 mg/kg Q24hr - Itraconazole 200mg Q8H for 9 doses, then BID - Hold atorvastatin Histoplasma/Blastomyces Infection: Histo/Blasto testing for serum antigen 5.3, unable to differentiate between them. Patient with recurrent fevers of unknown origin starting 07/23. CT Chest with findings as above. Patient on 4L NC intermittently - Blood cultures NGTD - immunocompromised respiratory panel all negative - Infectious Disease consulted, appreciate recommendations -start liposomal ampho B 3mg/kg q24h w/ premeds in order set -start PO itraconazole liquid 200mg q8h x9 doses then q12h -trough in 10-14d (may be as outpt) -will need to adjust IS dosing 2/2 itra - Pulmonology consulted - bronchoscopy performed - follow-up BAL results Acute Respiratory Insufficiency Patient requiring 3-4L NC during admission. Does not report oxygen at home. He has a 23 pack year smoking history, however quit and does not carry a diagnosis of COPD. Likely related to CT findings with workup as below. He briefly required non-rebreather and high flow nasal cannula when getting bronchoscopy today, indicating patient likely has low reserve. Likely related to histo/blasto infection - continue to monitor - oxygen as needed to maintain saturations >89% - low threshold to escalate care - histo/blasto treatment as above Acute Kidney Injury with Kidney Transplant, resolved: Patient is s/p combined liver/kidney transplant in 04/13/20. Patient currently takes tacrolimus 0.5mg BID and mycophenolate 540mg BID for immunosuppression. Baseline creatinine appears to be 1.1-1.4, though variable. - UA with trace blood and 3-5 Rbc on admission - Transplant renal US with possible stones - CT A/P: Right lower quadrant transplant kidney is unremarkable - Recent testing prior to admission: CMV serum PCR negative, BK serum negative, EBV negative - Renally dose all medications as needed. S/p Liver Transplant: combined liver/kidney transplant in 04/13/20. Patient currently takes tacrolimus 0.5mg BID and mycophenolate 360mg BID for immunosuppression. - Immunosuppresion management as above - Hepatic function panel unremarkable on admission Chronic Medical Conditions Essential Hypertension- controlled - continue home amlodipine 5mg, holding losartan 50mg BID 2/2 renal function CAD: non-obstructive CAD on [facility] 2018. - continue home aspirin 81mg daily, holding atorvastatin 20mg daily Gout: continue home allopurinol 200mg daily BPH: continue home flomax 0.4mg daily DVT PPX: SQH Code Status: Full Code Disposition: Pending clinical course. Anticipate eventual discharge home. Discussed with team and attending, Kevin Sage MD, on rounds. Signed, Evan Kelly MD Attending Physician Addendum I saw and personally examined Mr. Styles with the renal team. I discussed the findings and plan of the case. I agree with the history, physical examination, and medical decisions as outlined above. VS Temp: [98 F (36.7 C)-99.2 F (37.3 C)] 98 F (36.7 C) Pulse (Heart Rate): [70-112] 112 Resp Rate: [15-19] 15 BP: (111-129)/(55-74) 115/67 O2 Sat (%): [88 %-94 %] 90 % Weight: [91.7 kg (202 lb 1.6 oz)] 91.7 kg (202 lb 1.6 oz) I/O last 3 completed shifts: In: 2089 [P.O.:2089] Out: 1674 [Urine:1674] No intake/output data recorded. LABS Lab Results Component Value Date WBC 4.36 09/03/2023 HGB 12.8 (L) 09/03/2023 PLATELET 222 09/03/2023 Lab Results Component Value Date SODIUM 136 09/03/2023 POTASSIUM 4.1 09/03/2023 CHLORIDE 104 09/03/2023 CO2 24 09/03/2023 BUN 17 09/03/2023 CREATSERUM 1.20 09/03/2023 GLUCOSE 112 (H) 09/03/2023 Lab Results Component Value Date CALCIUM 9.2 08/17/2023 PHOSPHORUS 3.1 07/03/2023 Lab Results Component Value Date CREATSERUM 1.20 09/03/2023 CREATSERUM 1.25 09/02/2023 CREATSERUM 1.16 09/01/2023 CREATSERUM 1.48 08/17/2023 CREATSERUM 1.04 07/03/2023 CREATSERUM 1.17 04/28/2023 CREATSERUM 5.05 (H) 11/19/2018 Kevin Sage MD, SERA Meter Readers Supervisor of Clinical Medicine [facility] Internal Medicine Daily Progress Note Patient: George Styles, 1970, [id number] Physician: Evan Kelly MD, PGY-1, TM1 service Subjective/Interval History: No acute events overnight. Patient with increasing oxygen requirements during bronchoscopy today. Returned to 4L NC post procedure. Patient denies any current shortness of breath. All questions answered by the team on rounds. Objective: Vitals: 09/02/231520 BP: Pulse: 77 Resp: 23 Temp: SpO2: 94% O2 Device: nasal cannula (09/02/231520) Flow (L/min): 4 (09/02/231520) Gen: Alert, Awake, NAD, tired-appearing Eyes: EOMI, no icterus ENT: MMM, trachea midline Resp: Bilateral clear to auscultation, no labored breathing on 4L NC Cardio: RRR, normal S1, S2, no M/R/G. No JENSEN. GI: S/NT/ND, NABS MSK: No joint effusions or erythema: Skin: No jaundice or rash Neuro: Moving all 4 extremities spontaneously Psych: Appropriate for clinical situation. Data Review: WBC/Hgb/Hct/Plts: 4.12/12.9/39.9/210 (09/02 533) Na/K+/Phos/Mg/Ca: 136/4.3/--/1.7/-- (09/02 533) Bun/Creat/Cl/CO2/Glucose: 16/1.25/105/22/105 (09/02 533) Lab Results Component Value Date SPGRVTYUR 1.015 08/29/2023 GLUCOSEURINE Negative 08/29/2023 KETONESURINE Negative 08/29/2023 BLOODURINE Trace (A) 08/29/2023 NITRITESURIN Negative 08/29/2023 LEUKOCESTUR Negative 08/29/2023 WBCURINE 0 - 5 08/29/2023 RBCURINE 3-5 (A) 08/29/2023 BACTERIAURIN ABSENT 08/29/2023 Blood cultures 08/[address] ABDOMEN/PELVIS WITHOUT CONTRAST Final Result IMPRESSION: 1. Interval removal of nephrostomy tube from right lower quadrant transplant kidney. No stones or hydronephrosis. 2. New prominent to borderline enlarged upper abdominal and retroperitoneal nodes lymph nodes as above, which are nonspecific but may be secondary to a lymphoproliferative disorder or granulomatous process.. Recommend clinical correlation. 3. Prior liver transplant without focal hepatic lesion. No ascites or peritransplant fluid collections. Prominent perigastric collateral vessels, similar to prior. 4. Groundglass attenuation in the lung bases with the basilar atelectatic changes 5. Nonobstructive bowel gas pattern. Normal appendix 6. No abdominopelvic ascites. I personally viewed and interpreted these images and I have reviewed and approved this report. CHEST WITHOUT CONTRAST Final Result IMPRESSION: 1. Superior segment of the left lower lobe consolidative pneumonia with trace fluid or mild thickening of the adjacent minor fissure. 2. Innumerable punctate centrilobular nodules throughout both lungs are likely infectious as well in an immunocompromised patient. 3. Few mildly enlarged lymph nodes in the AP window are likely reactive. 4. Coronary artery disease. RENAL TRANSPLANT SCAN Final Result IMPRESSION: Questionable stones in the transplant kidney with normal resistive indices and no hydronephrosis. Possible bladder stone. If confirmation of stones is desired, consider noncontrast CT scanning. I personally viewed and interpreted these images and I have reviewed and approved this report. CHEST PORTABLE Final Result IMPRESSION: Prominent heart without pulmonary edema. Clear lungs. Assessment/Plan: George Styles is a 53 y.o. 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 His post-transplant course was noteworthy for nephrostomy tube (05/17/2022-09/10/2022) due to concern for ureteral stone. He presents as a direct admission for fever, cough, for infectious workup Plans for Today: - Bronchoscopy performed with BAL sent - Upgrade to PCU Cough, Fever, Night Sweats: Patient is compliant with his immunosuppressive medicine. Recent testing for CMV, EBV, BK all negative. Immunosuppressive respiratory panel negative. Patient with possible UTI, prompting a few day's treatment with Bactrim, though never any symptoms of UTI and UA non-infectious on admission. Concern for other opportunistic infection in setting of immunosupression. Given time course, highest concern for fungal infection. Also considering malignancy given weight loss, nocturnal symptoms. Serum crypto and legionella negative. CT Chest with findings as below. - Blood cultures NGTD - immunocompromised respiratory panel all negative - Urinary histoplasmosis pending - Infectious Disease consulted, appreciate recommendations - Hold antibiotics given afebrile and clinical stability Innumerable punctate centrilobular nodules LLL Consolidative Pneumonia: found on CT Chest. History of present symptoms noted under cough, fever, night sweats. Concern for opportunistic infection - Pulmonology consulted - bronchoscopy performed - follow-up BAL results Acute Respiratory Insufficiency Patient requiring 3-4L NC during admission. Does not report oxygen at home. He has a 23 pack year smoking history, however quit and does not carry a diagnosis of COPD. Likely related to CT findings with workup as below. He briefly required non-rebreather and high flow nasal cannula when getting bronchoscopy today, indicating patient likely has low reserve. - continue to monitor - oxygen as needed to maintain saturations >89% - low threshold to escalate care Acute Kidney Injury with Kidney Transplant, resolved: Patient is s/p combined liver/kidney transplant in 04/13/20. Patient currently takes tacrolimus 0.5mg BID and mycophenolate 540mg BID for immunosuppression. Baseline creatinine appears to be 1.1-1.4, though variable. - UA with trace blood and 3-5 Rbc on admission - Transplant renal US with possible stones (nidus for infection) - CT A/P ordered - Recent testing prior to admission: CMV serum PCR negative, BK serum negative, EBV negative - Renally dose all medications as needed. S/p Liver Transplant: combined liver/kidney transplant in 04/13/20. Patient currently takes tacrolimus 0.5mg BID and mycophenolate 360mg BID for immunosuppression. - Immunosuppresion management as above - Hepatic function panel unremarkable on admission Chronic Medical Conditions Essential Hypertension- controlled - continue home amlodipine 5mg, holding losartan 50mg BID 2/2 renal function CAD: non-obstructive CAD on [facility] 2018. - continue home aspirin 81mg daily, atorvastatin 20mg daily Gout: continue home allopurinol 200mg daily BPH: continue home flomax 0.4mg daily DVT PPX: SQH Code Status: Full Code Disposition: Pending clinical course. Anticipate eventual discharge home. Discussed with team and attending, Kevin Sage MD, on rounds. Signed, Evan Kelly MD Attending Physician Addendum I saw and personally examined Mr. Styles with the renal team. I discussed the findings and plan of the case. I agree with the history, physical examination, and medical decisions as outlined above. VS Temp: [97.9 F (36.6 C)-99.7 F (37.6 C)] 99.5 F (37.5 C) Pulse (Heart Rate): [62-138] 104 Resp Rate: [14-27] 24 BP: (108-162)/(55-87) 162/72 O2 Sat (%): [88 %-100 %] 93 % Weight: [91.8 kg (202 lb 6.4 oz)] 91.8 kg (202 lb 6.4 oz) I/O last 3 completed shifts: In: 450 [P.O.:450] Out: 1350 [Urine:1350] I/O this shift: In: 600 [P.O.:600] Out: 300 [Urine:300] LABS Lab Results Component Value Date WBC 4.12 09/02/2023 HGB 12.9 (L) 09/02/2023 PLATELET 210 09/02/2023 Lab Results Component Value Date SODIUM 136 09/02/2023 POTASSIUM 4.3 09/02/2023 CHLORIDE 105 09/02/2023 CO2 22 09/02/2023 BUN 16 09/02/2023 CREATSERUM 1.25 09/02/2023 GLUCOSE 105 (H) 09/02/2023 Lab Results Component Value Date CALCIUM 9.2 08/17/2023 PHOSPHORUS 3.1 07/03/2023 Lab Results Component Value Date CREATSERUM 1.25 09/02/2023 CREATSERUM 1.16 09/01/2023 CREATSERUM 1.37 (H) 08/31/2023 CREATSERUM 1.48 08/17/2023 CREATSERUM 1.04 07/03/2023 CREATSERUM 1.17 04/28/2023 CREATSERUM 5.05 (H) 11/19/2018 Kevin Sage MD, SERA Meter Readers Supervisor of Clinical Medicine [facility] Progression of Care Note Expected Discharge Date: 09/03/2023 Medical Milestones Remaining: Patient is requiring high levels of oxygen Assessment and Discharge Plan as of 09/02/2023 11:49 AM #5 hospital admission day. 08/[address]- diffuse centrilobular micronodules with consolidation of LLL superior segment +LLL pneumonia. US renal scan- no hydronephrosis. 09/01- The patient is having new increased need of oxygen 3-4LNC. Tomorrow bronchoscopy planned. 09/02- sats 96% on non rebreather 15L Anticipated discharge disposition: Home Anticipated Services at Discharge: Outpatient clinical services (ie: lab draws, transfusions, injectables), Outpatient follow up Lora Colón RN, MSN, CCM, CMCN Clinical Clinical Administrative Coordinator- [facility] Transplant #[phone] Made introductory visit with patient. Provided emotional and spiritual support. Patient shared about: - Source of [place]: Camping/Fishing/Family - Spirituality/Sikh Affiliation: raised Moravian - Family Support/history - Experience with illness/hospital course - Hopes for healing/future Sheeter Waxer Operator provided: - Supportive presence - Active listening - Validation of feelings/emotions - Pledged prayer Patient encouraged to request a machines technician as needed. Chaplains are available in-house 24 hours a day and 7 days a week. For urgent matters in [facility], please page [phone]. If the request is not urgent, please enter a consult. Consults are responded to within 24 hours. Senior Staff Sheeter Waxer Operator Angie Singh Mdiv, [facility] Kirk [phone] [email or web address] 22/06 On-call [place]: [phone] 22/06 Pager ,BS, and Brock Hernandez Pager [phone] 09/02/23 1117 Clinical Encounter Type Visited With Patient Visit Type Introduction Pastoral Time Spent 15 min Referral Other (See Comment) (rounding) Spiritual Assessment Spiritual Observation Spirituality helpful Emotional Observation Coping well Hope Observation Specific hope focus Support Observation By Family Interventions Provided Active listening;Supportive presence Facilitated Verbalization of feelings Explored Expectations Director Employee Communications Education Director Employee Communications Service Available Yes Educated Patient Outcomes Patient Outcomes Reduced distress Plan of Care Continue Visiting PRN NUTRITION RISK SCREENING NOTE Nutrition Plan of Care: 1. Continue current diet order. 2. No oral supplements warranted at this time. 3. Monitor for significant weight changes. Monitor GI and skin integrity. 4. Monitor and encourage po intakes with goal of average po being 100%. 5. registered vascular technologist (rvt) to follow. George Styles is a 53 y.o. 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 His post-transplant course was noteworthy for nephrostomy tube (05/17/2022-09/10/2022) due to concern for ureteral stone. He presents as a direct admission for fever, cough, for infectious workup. Pt unavailable and information obtained via chart review Senior Windows Systems Administrator Screening Pt's appetite is good. Pt with no nausea, vomiting, diarrhea or constipation. Pt with no issues with chewing and/or swallowing. Pt with no weight changes. Nutrition Risk Screening (MST) Have you recently lost weight without trying?: 1- 2 to 13 lb weight loss Have you been eating poorly because of decreased appetite?: 1- Yes Malnutrition Screening Tool Score: 2 Past History Past medical, surgical, family, and social histories have been reviewed and are located elsewhere in the medical record. Height: 170.2 cm (5' 7.01 ) Admit wt: 202 lb IBW: 145 lb %IBW: 139% BMI: 31.69 Wt Readings from Last 10 Encounters: 09/02/23 91.8 kg (202 lb 6.4 oz) 08/28/23 93 kg (205 lb 1.6 oz) 06/12/23 97.9 kg (215 lb 12.8 oz) 01/16/23 97.5 kg (214 lb 14.4 oz) 09/10/22 97.5 kg (215 lb) 06/27/22 99.2 kg (218 lb 9.6 oz) 06/27/22 99.8 kg (220 lb) 06/12/22 100.2 kg (220 lb 14.4 oz) 05/19/22 103.9 kg (229 lb 1.6 oz) 07/26/21 92.3 kg (203 lb 6.4 oz) Pt without significant weight changes Net IO Since Admission: -3,870 mL [09/02/23 0851] Current Diet Orders Procedures DIET NPO with meds For bronchoscopy Standing Status: Standing Number of Occurrences: 1 Order Specific Question: NPO Meds: Answer: with meds Food Allergies reviewed:Shellfish Cultural or Sikh Restrictions/Preferences: None GI: Last Bowel Movement: 09/01/23 Skin Jose Score: 20 STAND skin bundle not initiated Active Wounds: Incision (Adult, Pediatric) 04/12/20 2308 upper abdomen (1238) Edema: - Summary Pt is at nutrition risk due to admit diagnosis, chronic conditions, and pmhx. Pt's appetite seems to be good. PO intakes mostly 100%. No report of n/v/c/d identified. Pt without significant weight changes. No oral supplement warranted at this time. Will continue to monitor. RHIANNON [place] Pager:[phone] Internal Medicine Daily Progress Note Patient: George Styles, 1970, [id number] Physician: Evan Kelly MD, PGY-1, TM1 service Subjective/Interval History: No acute events overnight. Patient continues to have increased oxygen requirement. Pulmonology consulted who plans to perform bronchoscopy tomorrow. He is in agreement with the plan and does not have any questions for the team. He denies shortness of breath. Objective: Vitals: 09/01/23 1412 BP: 120/63 Pulse: 85 Resp: 16 Temp: 98 F (36.7 C) SpO2: 92% O2 Device: room air (09/01/23 0909) Flow (L/min): 4 (09/01/23908) Gen: Alert, Awake, NAD, tired-appearing Eyes: EOMI, no icterus ENT: MMM, trachea midline Resp: Bilateral clear to auscultation, no labored breathing on 4L NC Cardio: RRR, normal S1, S2, no M/R/G. No JENSEN. GI: S/NT/ND, NABS MSK: No joint effusions or erythema: Skin: No jaundice or rash Neuro: Moving all 4 extremities spontaneously Psych: Appropriate for clinical situation. Data Review: WBC/Hgb/Hct/Plts: 4.41/12.7/38.9/209 (09/01 557) Na/K+/Phos/Mg/Ca: 134/4.2/--/1.6/-- (09/01 557) Bun/Creat/Cl/CO2/Glucose: 18/1.16/103/21/117 (09/01 557) Lab Results Component Value Date SPGRVTYUR 1.015 08/29/2023 GLUCOSEURINE Negative 08/29/2023 KETONESURINE Negative 08/29/2023 BLOODURINE Trace (A) 08/29/2023 NITRITESURIN Negative 08/29/2023 LEUKOCESTUR Negative 08/29/2023 WBCURINE 0 - 5 08/29/2023 RBCURINE 3-5 (A) 08/29/2023 BACTERIAURIN ABSENT 08/29/2023 Blood cultures 08/[address] ABDOMEN/PELVIS WITHOUT CONTRAST Final Result IMPRESSION: 1. Interval removal of nephrostomy tube from right lower quadrant transplant kidney. No stones or hydronephrosis. 2. New prominent to borderline enlarged upper abdominal and retroperitoneal nodes lymph nodes as above, which are nonspecific but may be secondary to a lymphoproliferative disorder or granulomatous process.. Recommend clinical correlation. 3. Prior liver transplant without focal hepatic lesion. No ascites or peritransplant fluid collections. Prominent perigastric collateral vessels, similar to prior. 4. Groundglass attenuation in the lung bases with the basilar atelectatic changes 5. Nonobstructive bowel gas pattern. Normal appendix 6. No abdominopelvic ascites. I personally viewed and interpreted these images and I have reviewed and approved this report. CHEST WITHOUT CONTRAST Final Result IMPRESSION: 1. Superior segment of the left lower lobe consolidative pneumonia with trace fluid or mild thickening of the adjacent minor fissure. 2. Innumerable punctate centrilobular nodules throughout both lungs are likely infectious as well in an immunocompromised patient. 3. Few mildly enlarged lymph nodes in the AP window are likely reactive. 4. Coronary artery disease. RENAL TRANSPLANT SCAN Final Result IMPRESSION: Questionable stones in the transplant kidney with normal resistive indices and no hydronephrosis. Possible bladder stone. If confirmation of stones is desired, consider noncontrast CT scanning. I personally viewed and interpreted these images and I have reviewed and approved this report. CHEST PORTABLE Final Result IMPRESSION: Prominent heart without pulmonary edema. Clear lungs. Assessment/Plan: George Styles is a 53 y.o. 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 His post-transplant course was noteworthy for nephrostomy tube (05/17/2022-09/10/2022) due to concern for ureteral stone. He presents as a direct admission for fever, cough, for infectious workup Plans for Today: - Pulmonology consulted - NPO at midnight for bronchoscopy Cough, Fever, Night Sweats: Patient is compliant with his immunosuppressive medicine. Recent testing for CMV, EBV, BK all negative. Immunosuppressive respiratory panel negative. Patient with possible UTI, prompting a few day's treatment with Bactrim, though never any symptoms of UTI and UA non-infectious on admission. Concern for other opportunistic infection in setting of immunosupression. Given time course, highest concern for fungal infection. Also considering malignancy given weight loss, nocturnal symptoms. Serum crypto and legionella negative. - CXR without consolidation - Blood cultures NGTD - immunocompromised respiratory panel all negative - Urinary histoplasmosis pending - Infectious Disease consulted, appreciate recommendations - Hold antibiotics given afebrile and clinical stability - CT A/P, CT Chest without contrast Innumerable punctate centrilobular nodules LLL Consolidative Pneumonia: found on CT Chest. History of present symptoms noted under cough, fever, night sweats. Concern for opportunistic infection - Pulmonology consulted - NPO at midnight for 09/02 bronchoscopy with bacterial, fungal, AFB, legionella cultures + galactomannan Acute Respiratory Insufficiency Patient requiring 3-4L NC during admission. Does not report oxygen at home. He has a 23 pack year smoking history, however quit and does not carry a diagnosis of COPD. Likely related to CT findings with workup as below. - continue to monitor - oxygen as needed to maintain saturations >89% Acute Kidney Injury with Kidney Transplant, resolved: Patient is s/p combined liver/kidney transplant in 04/13/20. Patient currently takes tacrolimus 0.5mg BID and mycophenolate 540mg BID for immunosuppression. Baseline creatinine appears to be 1.1-1.4, though variable. - UA with trace blood and 3-5 Rbc on admission - Transplant renal US with possible stones (nidus for infection) - CT A/P ordered - Recent testing prior to admission: CMV serum PCR negative, BK serum negative, EBV negative - Renally dose all medications as needed. S/p Liver Transplant: combined liver/kidney transplant in 04/13/20. Patient currently takes tacrolimus 0.5mg BID and mycophenolate 360mg BID for immunosuppression. - Immunosuppresion management as above - Hepatic function panel unremarkable on admission Chronic Medical Conditions Essential Hypertension- controlled - continue home amlodipine 5mg, holding losartan 50mg BID 2/2 renal function CAD: non-obstructive CAD on [facility] 2018. - continue home aspirin 81mg daily, atorvastatin 20mg daily Gout: continue home allopurinol 200mg daily BPH: continue home flomax 0.4mg daily DVT PPX: SQH Code Status: Full Code Disposition: Pending clinical course. Anticipate eventual discharge home. Discussed with team and attending, Kevin Sage MD, on rounds. Signed, Evan Kelly MD Attending Physician Addendum I saw and personally examined Mr. Styles with the transplant medicine team. I discussed the findings and plan of the case. I agree with the history, physical examination, and medical decisions as outlined above. Kevin Sage MD Pager [phone] Summary: Pharmacy Med Rec Department of Pharmacy Admission Medication Reconciliation Note Patient: George Styles Room/Bed: 1062/A The patient's allergies have been reviewed with Patient. I also have reviewed the patient's home medication list with the following sources Patient recall with prompting, Dispense Report, OARRs, Outside hospital record in Care Everywhere and [facility] Review. I have also reviewed this list with the pharmacist. I am recommending the following changes to the home medication list. These recommendations are considered preliminary until attestation of this note by a pharmacist. Edits to Home Medications: mycophenolate 360 mg (2 tabs) q12h TO 540 mg (3 tabs) q12h. OARRs Report: Has been reviewed. gabapentin 400 mg Filled: 06/07/23 Amount: # 90 Day Supply: 90 Refills: 0 Provider: Zuly Bruno NP Pharmacy: [facility] Other Comments: Patient reported his Last Home Dose of mycophenolate & tacrolimus was on 08/28/23 at 0900. Patient reported he was taking Bactrim and benzonatate for fevers and a cough he was having. Please feel free to contact me with any further questions. Name: Heidy Chatman Phone #: [phone] Date/Time: 09/01/2023 2:01 PM Time Spent: 15 minutes Associated attestation - Matt Kramer RPh,PharmD - 09/01/2023 2:28 PM EDT Department of Pharmacy Admission Medication Reconciliation Note Patient: George Styles Room/Bed: 1062/A I have reviewed the home medication list with the Cs Associate. All changes to the home medication list have been updated in IHIS. Updated INSURANCE INSPECTOR Med List: Prior to Admission Medications Prescriptions Allopurinol 100 MG tablet Sig: Take 2 tablets by mouth daily. Gabapentin 400 MG capsule Sig: Take 1 capsule by mouth at bedtime. Losartan 50 MG tablet Sig: Take 1 tablet by mouth 2 times daily. Mycophenolate sodium (Myfortic) [address] Sig: Take 3 tablets by mouth every 12 hours. Sulfamethoxazole-trimethoprim 800-160 MG per tablet Sig: Take 1 tablet by mouth 2 times daily. Tacrolimus (PROGRAF) 0.5 MG capsule Sig: Take 1 capsule by mouth every 12 hours. Tamsulosin HCl 0.4 MG capsule Sig: take 1 capsule by mouth once daily amLODIPine 5 MG tablet Sig: Take 1 tablet by mouth daily. aspirin 81 MG Chew Tab chewable tablet Sig: Chew 1 tablet daily. Last refill from our office. Medication can be purchased over the counter going forward. atorvastatin 20 MG tablet Sig: Take 1 tablet by mouth at bedtime. Further refills to be provided by PCP's office. benzonatate 100 MG capsule Sig: Take 1 capsule by mouth 3 times daily as needed. faMOTIdine 20 MG tablet Sig: Take 1 tablet by mouth 2 times daily. melatonin 3 MG tablet Sig: Take 1 tablet by mouth at bedtime as needed for Insomnia. ondansetron 4 MG tablet Sig: Take 1 tablet by mouth every 8 hours as needed for Nausea / Vomiting. polyethylene glycol 17 g Pack packet Sig: Take 1 packet by mouth daily. Facility-Administered Medications: None Please feel free to contact me with any further questions. Name: Matt Kramer RPh,PharmD Phone #: [phone] Date/Time: 09/01/2023 2:28 PM Transplant Infectious Disease (Team 3) Progress Note Date of Service: 08/31/23 Subjective: ongoing SOB, notes gets sweaty even when not febrile Physical Exam: Temp: [96 F (35.6 C)-99.5 F (37.5 C)] 96 F (35.6 C) Pulse (Heart Rate): [76-93] 93 Resp Rate: [16-20] 18 BP: (111-135)/(58-64) 135/60 O2 Sat (%): [90 %-95 %] 95 % Weight: [93.2 kg (205 lb 6.4 oz)] 93.2 kg (205 lb 6.4 oz) General: NAD, lying comfortably in bed HENT: NC/AT, normal dentition, moist mucus membranes Eyes: EOMI, anicteric sclerae, no conjunctival erythema Respiratory: CTAB, no wheezes, rales or rhonchi, no accessory muscle use Cardiovascular: RRR, S1 S2, no murmurs Abdomen: soft, nontender, nondistended Extremities: no edema, pedal pulses intact Neurological: no focal deficits, sensation grossly normal Skin: warm and dry, no rashes or ulcerations Psychiatric: appropriate affect, alert and oriented x3 Body mass index is 32.17 kg/m . Current Medications: Allopurinol 200 mg Oral Daily amLODIPine 5 mg Oral Daily aspirin 81 mg Oral Daily Atorvastatin 20 mg Oral QHS faMOTIdine 20 mg Oral BID Gabapentin 400 mg Oral QHS heparin 5,000 Units Subcutaneous Q8H Mycophenolate sodium 540 mg Oral Q12HNS Tacrolimus 0.5 mg Oral Q12H Tamsulosin HCl 0.4 mg Oral Daily Labs(personally reviewed): No leukocytosis Micro (personally rewiewed): RVP negative Imaging (personally reviewed): 08/31 CT C/A/P 1. Superior segment of the left lower lobe consolidative pneumonia with trace fluid or mild thickening of the adjacent minor fissure. 2. Innumerable punctate centrilobular nodules throughout both lungs are likely infectious as well in an immunocompromised patient. 3. Few mildly enlarged lymph nodes in the AP window are likely reactive. 4. Coronary artery disease. 1. Interval removal of nephrostomy tube from right lower quadrant transplant kidney. No stones or hydronephrosis. 2. New prominent to borderline enlarged upper abdominal and retroperitoneal nodes lymph nodes as above, which are nonspecific but may be secondary to a lymphoproliferative disorder or granulomatous process.. Recommend clinical correlation. 3. Prior liver transplant without focal hepatic lesion. No ascites or peritransplant fluid collections. Prominent perigastric collateral vessels, similar to prior. 4. Groundglass attenuation in the lung bases with the basilar atelectatic changes 5. Nonobstructive bowel gas pattern. Normal appendix 6. No abdominopelvic ascites. 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 Has ongoing hypoxemia and cough. CTs w/ some lymphadenopathy above and below diaphragm as well as pulmonary findings. Has had symptoms for over a month - do not think this is typical CAP. RVP is negative. Recommendations: -consult pulm to eval for bronch -send bacterial, fungal, AFB, legionella cultures + galactomannan -hold antibiotics -send serum crypto antigen, EBV PCR -follow pending histo, labs These recommendations were discussed with the primary team. Transplant ID (Team 3) will continue to follow. Please Epic message or page [phone] with questions. Evan White DO Transplant Infectious Diseases Internal Medicine Daily Progress Note Patient: George Styles, 1970, [id number] Physician: Evan Kelly MD, PGY-1, TM1 service Subjective/Interval History: No acute events overnight. Patient has required 3-4L NC while admitted. He does not require oxygen at home. He reports a 23 pack year smoking history, for which he quit 5 years ago. He continues to endorse night sweats. He denies shortness of breath. All questions answered by the team. Objective: Vitals: 08/31/23 1140 BP: 117/60 Pulse: 79 Resp: 18 Temp: 96.7 F (35.9 C) SpO2: 91% O2 Device: nasal cannula (08/31/23916) Flow (L/min): 4 (08/31/23916) Gen: Alert, Awake, NAD, tired-appearing Eyes: EOMI, no icterus ENT: MMM, trachea midline Resp: Bilateral clear to auscultation, no labored breathing. Cardio: RRR, normal S1, S2, no M/R/G. No JENSEN. GI: S/NT/ND, NABS MSK: No joint effusions or erythema: Skin: No jaundice or rash Neuro: Moving all 4 extremities spontaneously Psych: Appropriate for clinical situation. Data Review: WBC/Hgb/Hct/Plts: 4.77/12.8/39.4/228 (08/31 451) Na/K+/Phos/Mg/Ca: 134/4.4/--/1.7/-- (08/31 451) Bun/Creat/Cl/CO2/Glucose: 16/1.37/102/23/112 (08/31 451) Lab Results Component Value Date SPGRVTYUR 1.015 08/29/2023 GLUCOSEURINE Negative 08/29/2023 KETONESURINE Negative 08/29/2023 BLOODURINE Trace (A) 08/29/2023 NITRITESURIN Negative 08/29/2023 LEUKOCESTUR Negative 08/29/2023 WBCURINE 0 - 5 08/29/2023 RBCURINE 3-5 (A) 08/29/2023 BACTERIAURIN ABSENT 08/29/2023 Blood cultures 08/[address] ABDOMEN/PELVIS WITHOUT CONTRAST Preliminary Result IMPRESSION: 1. Interval removal of nephrostomy tube from right lower quadrant transplant kidney. No stones or hydronephrosis. 2. New borderline enlarged lymph nodes as above, which are nonspecific but may be related to tuberculosis or post transplant lymphoproliferative disorder. Recommend clinical correlation. 3. Prior liver transplant without focal hepatic lesion. No ascites or peritransplant fluid collections. Prominent perigastric collateral vessels, similar to prior. CHEST WITHOUT CONTRAST Final Result IMPRESSION: 1. Superior segment of the left lower lobe consolidative pneumonia with trace fluid or mild thickening of the adjacent minor fissure. 2. Innumerable punctate centrilobular nodules throughout both lungs are likely infectious as well in an immunocompromised patient. 3. Few mildly enlarged lymph nodes in the AP window are likely reactive. 4. Coronary artery disease. RENAL TRANSPLANT SCAN Final Result IMPRESSION: Questionable stones in the transplant kidney with normal resistive indices and no hydronephrosis. Possible bladder stone. If confirmation of stones is desired, consider noncontrast CT scanning. I personally viewed and interpreted these images and I have reviewed and approved this report. CHEST PORTABLE Final Result IMPRESSION: Prominent heart without pulmonary edema. Clear lungs. Assessment/Plan: George Styles is a 53 y.o. 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 His post-transplant course was noteworthy for nephrostomy tube (05/17/2022-09/10/2022) due to concern for ureteral stone. He presents as a direct admission for fever, cough, for infectious workup Plans for Today: - CT Chest without contrast - CT A/P without contrast - Reach out to ID regarding findings Cough, Fever, Night Sweats: Patient is compliant with his immunosuppressive medicine. Recent testing for CMV, EBV, BK all negative. Immunosuppressive respiratory panel negative. Patient with possible UTI, prompting a few day's treatment with Bactrim, though never any symptoms of UTI and UA non-infectious on admission. Concern for other opportunistic infection in setting of immunosupression. Given time course, highest concern for fungal infection. Also considering malignancy given weight loss, nocturnal symptoms. - CXR without consolidation - Blood cultures NGTD - immunocompromised respiratory panel all negative - Urinary histoplasmosis pending - PJP, daryl PCR pending - Infectious Disease consulted, appreciate recommendations - Hold antibiotics given afebrile and clinical stability - CT A/P, CT Chest without contrast Acute Kidney Injury with Kidney Transplant, improving: Patient is s/p combined liver/kidney transplant in 04/13/20. Patient currently takes tacrolimus 0.5mg BID and mycophenolate 540mg BID for immunosuppression. Baseline creatinine appears to be 1.1-1.4, though variable. - UA with trace blood and 3-5 Rbc on admission - Transplant renal US with possible stones (nidus for infection) - CT A/P ordered - Recent testing prior to admission: CMV serum PCR negative, BK serum negative, EBV negative - Renally dose all medications as needed. S/p Liver Transplant: combined liver/kidney transplant in 04/13/20. Patient currently takes tacrolimus 0.5mg BID and mycophenolate 360mg BID for immunosuppression. - Immunosuppresion management as above - Hepatic function panel unremarkable on admission Chronic Medical Conditions Essential Hypertension- controlled - continue home amlodipine 5mg, holding losartan 50mg BID 2/2 renal function CAD: non-obstructive CAD on [facility] 2018. - continue home aspirin 81mg daily, atorvastatin 20mg daily Gout: continue home allopurinol 200mg daily BPH: continue home flomax 0.4mg daily DVT PPX: SQH Code Status: Full Code Disposition: Pending clinical course. Anticipate eventual discharge home. Discussed with team and attending, Kevin Sage MD, on rounds. Signed, Evan Kelly MD Attending Physician Addendum I saw and personally examined Mr. Styles with the renal team. I discussed the findings and plan of the case. I agree with the history, physical examination, and medical decisions as outlined above. VS Temp: [96 F (35.6 C)-99.6 F (37.6 C)] 99.6 F (37.6 C) Pulse (Heart Rate): [76-103] 103 Resp Rate: [16-20] 18 BP: (111-138)/(58-69) 138/69 O2 Sat (%): [87 %-95 %] 90 % I/O last 3 completed shifts: In: 1660 [P.O.:1660] Out: 2074 [Urine:2074] No intake/output data recorded. LABS Lab Results Component Value Date WBC 4.77 08/31/2023 HGB 12.8 (L) 08/31/2023 PLATELET 228 08/31/2023 Lab Results Component Value Date SODIUM 134 (L) 08/31/2023 POTASSIUM 4.4 08/31/2023 CHLORIDE 102 08/31/2023 CO2 23 08/31/2023 BUN 16 08/31/2023 CREATSERUM 1.37 (H) 08/31/2023 GLUCOSE 112 (H) 08/31/2023 Lab Results Component Value Date CALCIUM 9.2 08/17/2023 PHOSPHORUS 3.1 07/03/2023 Lab Results Component Value Date CREATSERUM 1.37 (H) 08/31/2023 CREATSERUM 1.56 (H) 08/30/2023 CREATSERUM 1.55 (H) 08/29/2023 CREATSERUM 1.48 08/17/2023 CREATSERUM 1.04 07/03/2023 CREATSERUM 1.17 04/28/2023 CREATSERUM 5.05 (H) 11/19/2018 Kevin Sage MD, [employer]A [employer] Supervisor of Clinical Medicine [facility] Discharge Planning Patient Assessment Admission Assessment Patient Assessment Completed: Initial Anticipated discharge disposition: Home Reason for Admission: fever cough, post transplant Is the patient able to participate in the assessment?: Yes Information source: Patient Demographics Verified and Updated: Yes Has the patient been admitted to any hospital in the last 30 days?: No Advanced Care Planning Has the patient completed Advance Directives?: Completed, Not Available in Medical Record Copy of Advance Directives was requested?: Yes Advance Directives Requested From: pt will try to upload to my chart when gets home Legal Next of Kin Does the patient have a Guardian?: No Spouse: No Adult Child(brandon), List All Adult Children: No Parent(s) - List All Living Parents: No Adult Sibling(s), List All Adult Siblings: Yes Name and Contact information: Gian Styles ([phone]) Reviewed and Updated in Demographics? : Yes Outpatient Providers Does patient have a primary care physician? : Yes When was the patient's last PCP visit?: > 30 days Does the patient follow any specialists?: No Reviewed and updated Care Team?: Yes Patient Care Team: Zuly Bruno CNP as PCP - General Environment/Caregivers Is the patient from a facility or shelter?: No Patient lives with: Alone Living Environment: House How many steps does the patient have to navigate to enter or inside the home? : 4 Does the patient have a first floor set-up with bed and bathroom?: Yes Patient Caregiving Responsibilities: Self Patient-identified caregiver/support network: Family Who does the patient identify as a teachable caregiver(s)?: Sibling(s) Services Does the patient use a home health or hospice agency?: No Current with dialysis?: No Does the patient use any community programs or services?: No Does patient use DME? : rollator DME provider name and contact: unknown Would you like to add additional DME providers?: No Does the patient use oxygen?: No Does patient use medical supplies? : none Anticipated Changes Related to Illness/Injury? : No Initial ADLs Prior to Arrival What is the patient's baseline physical functioning prior to this acute illness?: independent What is the patient's baseline cognitive functioning prior to this acute illness?: independent Is the patient's baseline functioning changed by this acute illness? : No Concerns with patient being able to care for themselves at home? : No Are there therapy or specialists consults?: No Does the patient's home require any home modifications for discharge? : No CM to recommend therapy or other consults? : No Medication Management Does the patient have prescription insurance coverage? : Yes Is the patient on Anticoagulation? : No [id number] [place] [address] - [address] [facility] [address] [facility] [id number] [employer] Does the patient or field representative/health education express financial concerns? : No Employed?: Disabled Coping/Stress Concerns about patient s coping and stress?: No Concerns about patient s caregiver s coping and stress?: No Values and Beliefs Cultural or nondenominational practices that may impact discharge planning and/or medical care?: No Initial Discharge Planning Anticipated discharge disposition: Home Transportation Available for Discharge: Private Vehicle (pt drove self here) Anticipated DME: rollator (has rollator) Anticipated Services at Discharge: Outpatient follow up Patient Assessment Completed: Initial Expected Discharge Date: 09/01/2023 Discharge Planning Summary 1. Plan at this time is discharge home 2. Patient assessment completed. Case Management Plan 1. Identified self and role as Clinical Administrative Coordinator. 2. Confirmed and updated demographics and treatment team. 3. Clinical Administrative Coordinator will continue to follow with medical team/pt for any other additional discharge needs. Kasandra DON RN [facility] [phone] *Please note I am float and work Thursday and Thursday every other week. Please call [phone] for assist in my absence. Internal Medicine Daily Progress Note Patient: George Styles, 1970, [id number] Physician: Evan Kelly MD, PGY-1, TM1 service Subjective/Interval History: Patient febrile to 100.4 overnight. This morning, patient continues to endorse intermittent cough. He required 3L O2, denies history of DARLENE. Recommended patient proceed with sleep study if persistently requires oxygen overnight. All questions answered by the team on rounds. Objective: Vitals: 08/30/23727 BP: 117/65 Pulse: 69 Resp: 16 Temp: 97.5 F (36.4 C) SpO2: 94% O2 Device: nasal cannula (08/30/23727) Flow (L/min): 3 (08/30/23217) Gen: Alert, Awake, NAD, tired-appearing Eyes: EOMI, no icterus ENT: MMM, trachea midline Resp: Bilateral clear to auscultation, no labored breathing. Cardio: RRR, normal S1, S2, no M/R/G. No JENSEN. GI: S/NT/ND, NABS MSK: No joint effusions or erythema: Skin: No jaundice or rash Neuro: Moving all 4 extremities spontaneously Psych: Appropriate for clinical situation. Data Review: WBC/Hgb/Hct/Plts: 4.96/13.2/41.3/235 (08/30 236) Na/K+/Phos/Mg/Ca: 132/4.3/--/1.8/-- (08/30 236) Bun/Creat/Cl/CO2/Glucose: 16/1.56/102/20/123 (08/30 236) Ptt/Pt/Inr: 29.3/13.8/1.1 (08/29 1232) Lab Results Component Value Date SPGRVTYUR 1.015 08/29/2023 GLUCOSEURINE Negative 08/29/2023 KETONESURINE Negative 08/29/2023 BLOODURINE Trace (A) 08/29/2023 NITRITESURIN Negative 08/29/2023 LEUKOCESTUR Negative 08/29/2023 WBCURINE 0 - 5 08/29/2023 RBCURINE 3-5 (A) 08/29/2023 BACTERIAURIN ABSENT 08/29/2023 Blood cultures 08/28 NGTD Histoplasmosis pending. US RENAL TRANSPLANT SCAN Final Result IMPRESSION: Questionable stones in the transplant kidney with normal resistive indices and no hydronephrosis. Possible bladder stone. If confirmation of stones is desired, consider noncontrast CT scanning. I personally viewed and interpreted these images and I have reviewed and approved this report. CHEST PORTABLE Final Result IMPRESSION: Prominent heart without pulmonary edema. Clear lungs. CHEST WITHOUT CONTRAST (Results Pending) CT ABDOMEN/PELVIS WITHOUT CONTRAST (Results Pending) Assessment/Plan: George Styles is a 53 y.o. 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 His post-transplant course was noteworthy for nephrostomy tube (05/17/2022-09/10/2022) due to concern for ureteral stone. He presents as a direct admission for fever, cough, for infectious workup Plans for Today: - CT Chest without contrast - CT A/P without contrast Cough, Fever, Night Sweats: Patient is compliant with his immunosuppressive medicine. Recent testing for CMV, EBV, BK all negative. Immunosuppressive respiratory panel negative. Patient with possible UTI, prompting a few day's treatment with Bactrim, though never any symptoms of UTI and UA non-infectious on admission. Concern for other opportunistic infection in setting of immunosupression. Given time course, highest concern for fungal infection. Also considering malignancy given weight loss, nocturnal symptoms. - CXR without consolidation - Blood cultures NGTD - immunocompromised respiratory panel all negative - Urinary histoplasmosis pending - PJP, daryl PCR pending - Infectious Disease consulted, appreciate recommendations - Hold antibiotics given afebrile and clinical stability - CT A/P, CT Chest without contrast Acute Kidney Injury with Kidney Transplant : Patient is s/p combined liver/kidney transplant in 04/13/20. Patient currently takes tacrolimus 0.5mg BID and mycophenolate 540mg BID for immunosuppression. Baseline creatinine appears to be 1.1-1.4, though variable. - UA with trace blood and 3-5 Rbc on admission - Transplant renal US with possible stones (nidus for infection) - CT A/P ordered - Recent testing prior to admission: CMV serum PCR negative, BK serum negative, EBV negative - Renally dose all medications as needed. S/p Liver Transplant: combined liver/kidney transplant in 04/13/20. Patient currently takes tacrolimus 0.5mg BID and mycophenolate 360mg BID for immunosuppression. - Immunosuppresion management as above - Hepatic function panel unremarkable on admission Chronic Medical Conditions Essential Hypertension- controlled - continue home amlodipine 5mg, holding losartan 50mg BID 2/2 renal function CAD: non-obstructive CAD on [facility] 2018. - continue home aspirin 81mg daily, atorvastatin 20mg daily Gout: continue home allopurinol 200mg daily BPH: continue home flomax 0.4mg daily DVT PPX: SQH Code Status: Full Code Disposition: Pending clinical course. Anticipate eventual discharge home. Discussed with team and attending, Kevin Sage MD, on rounds. Signed, Evan Kelly MD Attending Physician Addendum I saw and personally examined Mr. Styles with the renal team. I discussed the findings and plan of the case. I agree with the history, physical examination, and medical decisions as outlined above. VS Temp: [97.4 F (36.3 C)-100.4 F (38 C)] 98.5 F (36.9 C) Pulse (Heart Rate): [69-94] 90 Resp Rate: [16-24] 18 BP: (110-139)/(62-76) 139/67 O2 Sat (%): [88 %-96 %] 96 % I/O last 3 completed shifts: In: 1600 [P.O.:1600] Out: 3100 [Urine:3100] I/O this shift: In: 400 [P.O.:400] Out: 250 [Urine:250] LABS Lab Results Component Value Date WBC 4.96 08/30/2023 HGB 13.2 (L) 08/30/2023 PLATELET 235 08/30/2023 Lab Results Component Value Date SODIUM 132 (L) 08/30/2023 POTASSIUM 4.3 08/30/2023 CHLORIDE 102 08/30/2023 CO2 20 (L) 08/30/2023 BUN 16 08/30/2023 CREATSERUM 1.56 (H) 08/30/2023 GLUCOSE 123 (H) 08/30/2023 Lab Results Component Value Date CALCIUM 9.2 08/17/2023 PHOSPHORUS 3.1 07/03/2023 Lab Results Component Value Date CREATSERUM 1.56 (H) 08/30/2023 CREATSERUM 1.55 (H) 08/29/2023 CREATSERUM 1.62 (H) 08/28/2023 CREATSERUM 1.48 08/17/2023 CREATSERUM 1.04 07/03/2023 CREATSERUM 1.17 04/28/2023 CREATSERUM 5.05 (H) 11/19/2018 Kevin Sage MD, [employer] Supervisor of Clinical Medicine [facility] Internal Medicine Daily Progress Note Patient: George Styles, 1970, [id number] Physician: Laurel Serrano MD, PhD, PGY-3, TM1 service Subjective/Interval History: Admitted overnight. Please see H&P for full HPI and additional information. This AM patient feeling similar to previous days. Mild shortness of breath, dry cough intermittently. No pain. Denies new symptoms. 1 episode of sweatiness in sleep, but denies fever that he noticed. Additional history: Weight loss 10 lbs in last month. No rashes, no skin findings. Objective: Vitals: 08/29/23309 BP: 129/70 Pulse: 87 Resp: 16 Temp: 98.6 F (37 C) SpO2: 93% O2 Device: nasal cannula (08/29/23309) Flow (L/min): 1 (08/29/23309) Gen: Alert, Awake, NAD, tired-appearing Eyes: EOMI, no icterus ENT: MMM, trachea midline Resp: Bilateral clear, no labored breath. Cardio: RRR, normal S1, S2, no M/R/G. No JENSEN. GI: S/NT/ND, NABS MSK: No joint effusions or erythema: Skin: No jaundice or rash Neuro: Moving all 4 extremities spontaneously Psych: Appropriate for clinical situation. Data Review: WBC/Hgb/Hct/Plts: 4.92/12.2/37.6/233 (08/29 544) Na/K+/Phos/Mg/Ca: 133/4.5/--/1.7/-- (08/29 544) Bun/Creat/Cl/CO2/Glucose: 19/1.55/105/20/108 (08/29 0544) Lab Results Component Value Date SPGRVTYUR 1.015 08/29/2023 GLUCOSEURINE Negative 08/29/2023 KETONESURINE Negative 08/29/2023 BLOODURINE Trace (A) 08/29/2023 NITRITESURIN Negative 08/29/2023 LEUKOCESTUR Negative 08/29/2023 WBCURINE 0 - 5 08/29/2023 RBCURINE 3-5 (A) 08/29/2023 BACTERIAURIN ABSENT 08/29/2023 Blood cultures pending. [place]ro level pending. Histoplasmosis pending. US RENAL TRANSPLANT SCAN XR CHEST PORTABLE Final Result IMPRESSION: Prominent heart without pulmonary edema. Clear lungs. Assessment/Plan: George Styles is a 53 y.o. 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 His post-transplant course was noteworthy for nephrostomy tube (05/17/2022-09/10/2022) due to concern for ureteral stone. He presents as a direct admission for fever, cough, for infectious workup Cough, Fever, Night Sweats: Patient is compliance with his immunosuppressive medicine, recently visit in PCP did CBC WBC in normal range and CMV, EBV, BK all negative. COVID and other respiratory virus has been done recently all showed negative. Patient with possible UTI, prompting a few day's treatment with Bactrim, though never any symptoms of UTI and UA non-infectious on admission. Concern for other optimistic infection in setting of immunosupression. Given time course, highest concern for fungal infection. Also consider malignancy given weight loss, nocturnal symptoms, but lower concern. - CXR without consolidation - UA not infective [ ] Blood cultures pending - immunocompromised respiratory panel all negative [ ] Urinary histoplasmosis [ ] PJP, daryl PCR [ ] Consulted transplant ID- awaiting recommendations Acute Kidney Injury with Kidney Transplant : Patient is s/p combined liver/kidney transplant in 04/13/20. Patient currently takes tacrolimus 0.5mg BID and mycophenolate 540mg BID for immunosuppression. Baseline creatinine appears to be 1.1-1.4, though variable. - UA with trace blood and 3-5 Rbc on admission - Transplant renal US with possible stones (nidus for infection) [ ] Consider imaging once we have ID recommendations - Recent testing prior to admission: CMV serum PCR negative, BK serum negative, EBV negative - Could order alloscreen - Unhold tacrolimus once level has resulted - Renally dose all medications as needed. S/p Liver Transplant: combined liver/kidney transplant in 04/13/20. Patient currently takes tacrolimus 0.5mg BID and mycophenolate 360mg BID for immunosuppression. - Immunosuppresion management as above - Hepatic function panel unremarkable on admission [ ] Coags pending Chronic Medical Conditions Essential Hypertension- controlled - continue home amlodipine 5mg, losartan 50mg BID CAD: non-obstructive CAD on [facility] 2018. - continue home aspirin 81mg daily, atorvastatin 20mg daily Gout: continue home allopurinol 200mg daily BPH: continue home flomax 0.4mg daily DVT PPX: SQH Code Status: Full Code Disposition: Pending clinical course. Anticipate eventual discharge home. Discussed with team and attending, Kevin Sage MD, on rounds. Signed, Laurel Serrano MD, PhD documented in this encounter [facility] 09-10-2023 Hospital Discharge instructions Laurel Serrano MD, PhD - 09/10/2023 12:22 PM EDT You were admitted to the hospital for fevers. At first we did not know what was causing the fevers. We did many tests including imaging, lab work, and procedures in order to figure out what was making you sick. We found that you had a fungal infection, from either blasto or histoplasmosis. These are bugs that are present in soiled/dirt, that can infect people who have weak immune systems, like you do. We treated your infection with medications through the IV and by mouth. As you improved and were able to breathe easier, we were able to transition to just medications by mouth. It is very important that you continue taking these medications, and that you follow-up with Infectious diseases on September 23. You will also need to get some labs next week to be sure your drug levels are appropriate and that your chemistry looks good. While you were in the hospital you needed oxygen in order to breathe well and to keep your oxygen saturation high enough. By the time you were discharged you only need that this oxygen at night. It may be because you are not breathing deeply at night, but you may have something called obstructive sleep apnea that makes it hard for you to breathe at night. We have sent you home with oxygen for nighttime and have also sent a referral for you to see a sleep doctor. You will need to [employer] the oxygen concentrator when you leave the hospital! If you needing oxygen during the day, you need to let your doctors know, as this would make us worry that your lungs are still very weak. We decreased your tacrolimus dose because it interacts with your itraconazole. Take 0.2mg granules every other day. Be sure to get your levels checked outpatient. You should get your fist check on Thursday, September 14! Laurel Serrano MD, PhD - 09/10/2023 12:23 PM EDT Resume previous activity as tolerated. You will be wake after the hospitalization, but is important to continue to try to move every day. Laurel Serrano MD, PhD - 09/10/2023 12:23 PM EDT Resume your previous diet. Try to eat a good variety of foods and focus on healthy foods. documented in this encounter [facility] 09-01-2023 Consult note Associated Order (s): IP CONSULT TO PULMONOLOGY Pulmonary Medicine Inpatient Consultation Reason for Consultation: bronch for infectious workup Requesting Physician: Dr. Sage Pulmonary Attending Physician: Dr. Diaz CURRENT HOSPITALIZATION: Admit Date: 08/28/2023 [facility] Hospital LOS: 4 days Impression/Recommendations: George Styles is a 53 y.o. male with a history of liver-kidney transplant (March) 2/2 hepatorenal syndrome who presented on 08/28/2023 with fever, cough, night sweats and weight loss x5wks and direct admitted for infectious workup. Pulm was consulted for bronchoscopy in light of acute hypoxemic respiratory failure and micronodules seen on CT. Acute hypoxemic respiratory failure Pulmonary nodules Recommendations: - Plan to bronch tomorrow morning. NPO@[place], order placed - would repeat HIV, last test March Thank you for the consult. We will continue to follow. Izzy Loera MD Pulmonary and Critical Care Fellow [phone] History of Presenting Illness: Mr Styles confirms history as documented in the chart. Reports that a few weeks before symptoms started had been working in the garden pulling weeds for a short period of time. 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 Other histories as documented in the chart. Pertinent ROS as above. Physical Exam Temp: [96 F (35.6 C)-99.7 F (37.6 C)] 98.2 F (36.8 C) Pulse (Heart Rate): [77-103] 77 Resp Rate: [16-20] 18 BP: (113-138)/(59-70) 114/67 O2 Sat (%): [87 %-96 %] 93 % Weight: [91.8 kg (202 lb 6.4 oz)] 91.8 kg (202 lb 6.4 oz) Ventilation/Oxygen Therapy (24hrs): Oxygen Therapy O2 Sat (%): 93 % O2 Device: room air Flow (L/min): 4 General appearance: NAD Chest: mild dry crackles on end-inspiration CV: regular rate and rhythm, good S1, S2 Abdomen: Soft, non-tender without organomegaly, bowel sounds are active and no tenderness Extremities: edema - none Skin: warm, dry, intact, no visible lesions Neurological: Alert and oriented x3 Labs, Tests, Imaging Laboratory Data: Lab Results Component Value Date CO2 21 09/01/2023 CO2 27.6 08/17/2023 BUN 18 09/01/2023 BUN 11 07/03/2023 Lab Results Component Value Date WBC 4.41 09/01/2023 WBC 4.7 08/17/2023 HGB 12.7 (L) 09/01/2023 HGB 14.2 08/17/2023 PLATELET 209 09/01/2023 PLATELET 201 08/17/2023 Lab Results Component Value Date PT 13.8 08/29/2023 PT 11.4 05/03/2020 INR 1.1 08/29/2023 INR 1.1 05/03/2020 procal 0.23 Cultures: Syphilis, Legionella, Crypto, Quantiferon, hepatitis, viral pneumonia panel, adenovirus, bordetella, CMV, all negative Imaging: CT Chest 08/31 diffuse centrilobular micronodules with consolidation of LLL superior segment Associated attestation - Crow Diaz MD - 09/01/2023 8:10 PM EDT PULMONARY ATTENDING ATTESTATION I have personally seen and examined Mr. Styles, and have independently reviewed pertinent labs/radiographs. I agree with the exam, assessment and plan as outlined by Dr. Loera, and actively participated in the medical decision making. Mr. Styles is a 53 y.o. male w/ PMH of ESRD and ESLD s/p liver-kidney transplant (2019) who presents with fever, cough, unintentional weight loss, and night sweats. His CT chest is notable for a dense infiltrate in LLL superior segment along with diffuse bilateral micro nodules in a miliary pattern. Differential for this in rather broad and mostly includes infections (atypical bacterial, mycobacterial, fungal). We will plan for a bronch w/ BAL. Please monitor off abx to increase diagnostic yield if possible. Crow Diaz MD Pulmonary and Critical Care Medicine Associated Order(s): IP CONSULT TO INFECTIOUS DISEASE INFECTIOUS DISEASE CONSULT NOTE IDENTIFYING INFORMATION PATIENT: George Styles REFERRING PROVIDER: LU Ovalle ADMIT DATE: 08/28/2023 TODAY'S DATE: 08/29/2023 CHIEF COMPLAINT Fever REASON FOR CONSULT kidney and liver transplant pt with fever, sob, and cough for more than one month. ASSESSMENT George Styles is a 53 y.o. male with ETOH cirrhosis complicated by HRS s/p LKT (04/13/2020) admitted for fever. Infectious disease is consulted for assistance with evaluation. 1. Febrile illness 2. ETOH cirrhosis complicated by HRS s/p LKT (04/13/2020) 3. Immunocompromised host, on Tacrolimus and Myfortic 4. Normocytic anemia 5. Hyponatremia 6. Metabolic acidosis 7. Nephrolithiasis without hydronephrosis 8. Acute kidney injury - Estimated Creatinine Clearance: 61 mL/min (A) (by C-G formula based on SCr of 1.55 mg/dL (H)). RECOMMENDATIONS Diagnostics 1. Follow-up pending cultures and urine/serum Histo Ag. 2. Discussed with primary team re: possible CT imaging to evaluate nephrolithiasis further. If pursuing, could consider CT Chest without Contrast given intermittent non-productive cough and occasional desaturations during admission. Therapeutics 1. Hold antibiotics given afebrile and clinical stability. 2. If clinical instability, would repeat cultures and could start empiric antibiotics at that time. ID team 3 will continue to follow. Please call aforementioned team with questions. Discussed with attending, Dr. Alamo. Liam Julian MD Infectious Disease Fellow HISTORY OF PRESENT ILLNESS George Styles is a 53 y.o. male with ETOH cirrhosis complicated by HRS s/p LKT (04/13/2020) admitted for fever. Infectious disease is consulted for assistance with evaluation. On 08/28/2023, presented to Transplant Nephrology follow-up with reported fevers that had started on 07/23/2023, which have been daily and measured as high as 102F. Serial labs (including EBV, CMV, and BK) have been unremarkable thus far. Given presentation at clinic, he was direct admitted for further evaluation. Following admission, blood cultures and RVP obtained. He was noted started on empiric antimicrobials. Labs without leukocytosis as well as unremarkable CMP aside from hyponatremia with acute kidney injury. With regards to kidney transplant, EBV D+/R+ and CMV D-/R-. With regards to liver transplant, EBV D+R+ and CMV D-/R-. Current immunosuppression Tacrolimus and Mycophenolate. He reports no other symptoms aside from occasional non-productive cough associated with fevers, chills, and night sweats. He has been afebrile here, but states he had night sweats last night[place] They do go on walks frequently and he has found ticks on his dog and him, but none were latched and no coinciding rashes. He otherwise has not had any ill contacts. [facility] [place] [facility] REVIEW OF SYSTEMS A complete review of systems was performed and otherwise negative unless noted in HPI. PAST MEDICAL, SURGICAL, FAMILY, and SOCIAL HISTORY Past Medical History: Diagnosis Date Acute renal failure CAD (coronary artery disease) Cirrhosis Dialysis patient T, Th, Sa- Started 06/01/2018 End stage renal disease 06/01/2018 Essential hypertension, benign Hepatic encephalopathy History of blood transfusion Liver cirrhosis Past Surgical History: Procedure Laterality Date PLACEMENT NEPHROSTOMY CATHETER PERCUTANEOUS W/ IMAGE GUIDANCE 05/17/2022 Surgeon: Enzo Heart DO; [facility] INTERVENTIONAL RADIOLOGY (VIR) LIVER TRANSPLANT, ORTHOTOPIC N/A 04/12/2020 Laterality: N/A; Surgeon: LU Palma; Location: [facility] SAME DAY SURGERY MAIN OR KIDNEY TRANSPLANT W/O [place] NEPHRECTOMY N/A 04/12/2020 Laterality: N/A; Surgeon: LU Palma; Location: [facility] SAME DAY SURGERY MAIN OR OTHER SURGICAL 04/2018 Right chest dialysis cather- ANGIOPLASTY OF BRACHIOCEPHALIC TRUNK OR BRANCH WITH TRANSLUMINAL BALLOON PERCUTANEOUS FOR AVF OR GRA ANKLE SURGERY Right plate in ankle EXTRACTION TOOTH Family History Problem Relation Age of Onset Heart Disease - Other Mother Hypertension Mother Stroke Mother Diabetes Mother Heart Disease - Other Father Hypertension Father Stroke Father Diabetes Father Heart Disease - Other Sister Heart Disease - Other Brother Diabetes Brother Hypertension Brother Diabetes Maternal Aunt Breast Cancer Paternal Aunt Hypertension Paternal Aunt Heart Disease - Other Maternal Grandmother Diabetes Maternal Grandmother Lung Cancer Maternal Grandmother Hypertension Maternal Grandmother Heart Disease - Other Maternal Grandfather Hypertension Maternal Grandfather Lung Cancer Maternal Grandfather Heart Disease - Other Paternal Grandmother Social History Socioeconomic History Marital status: Single Tobacco Use Smoking status: Former Packs/day: 1.00 Years: 20.00 Additional pack years: 0.00 Total pack years: 20.00 Types: Cigarettes Start date: 07/19/1988 Quit date: 05/14/2018 Years since quittin.2 Smokeless tobacco: Former Types: Chew Quit date: 07/19/1994 Substance and Sexual Activity Alcohol use: Not Currently Alcohol/week: 2.0 standard drinks of alcohol Types: 2 Cans of beer per week Comment: stopped 05/14/2018 Drug use: No Sexual activity: Never INPATIENT MEDICATIONS Allopurinol 200 mg Oral Daily amLODIPine 5 mg Oral Daily aspirin 81 mg Oral Daily Atorvastatin 20 mg Oral QHS faMOTIdine 20 mg Oral BID Gabapentin 400 mg Oral QHS heparin 5,000 Units Subcutaneous Q8H Mycophenolate sodium 540 mg Oral Q12HNS [Held by provider] Tacrolimus 0.5 mg Oral Q12H Tamsulosin HCl 0.4 mg Oral Daily Allergies Allergies Allergen Reactions Shellfish-Derived Products Swelling Patient with lip and tongue swelling. PHYSICAL EXAM Temp: [97.3 F (36.3 C)-98.6 F (37 C)] 98.5 F (36.9 C) Pulse (Heart Rate): [81-116] 81 Resp Rate: [16-20] 20 BP: (106-145)/(41-71) 121/67 O2 Sat (%): [85 %-94 %] 88 % Weight: [93 kg (205 lb 1.6 oz)-94 kg (207 lb 4.8 oz)] 94 kg (207 lb 4.8 oz) Physical Exam Constitutional: General: He is not in acute distress. Appearance: He is not ill-appearing. HENT: Head: Atraumatic. Nose: Nose normal. Mouth/Throat: Mouth: Mucous membranes are moist. Pharynx: Oropharynx is clear. Eyes: Conjunctiva/sclera: Conjunctivae normal. Cardiovascular: Rate and Rhythm: Normal rate and regular rhythm. Heart sounds: Normal heart sounds. Pulmonary: Effort: Pulmonary effort is normal. Breath sounds: Normal breath sounds. Abdominal: General: Bowel sounds are normal. There is no distension. Palpations: Abdomen is soft. Tenderness: There is no abdominal tenderness. Musculoskeletal: General: No swelling or tenderness. Skin: General: Skin is warm. Findings: No rash. Neurological: General: No focal deficit present. Mental Status: He is alert. Mental status is at baseline. Psychiatric: Mood and Affect: Mood normal. Behavior: Behavior normal. LABS AND IMAGING Lab Results Component Value Date WBC 4.92 08/29/2023 HGB 12.2 (L) 08/29/2023 HCT 37.6 (L) 08/29/2023 PLATELET 233 08/29/2023 MCV 85.1 08/29/2023 Lab Results Component Value Date SODIUM 133 (L) 08/29/2023 POTASSIUM 4.5 08/29/2023 CHLORIDE 105 08/29/2023 CO2 20 (L) 08/29/2023 BUN 19 08/29/2023 CREATSERUM 1.55 (H) 08/29/2023 Microbiologic Data/Studies Date Source Result Comments 08/28/2023 Blood Pending Positive Negative Pending EBV PCR (08/17/2023) CMV PCR (08/17/2023) BK PCR (08/17/2023) RVP Urine Histoplasma Ag Serum Histo/Blasto Ag Imaging XR Chest (08/28/2023): Prominent heart without pulmonary edema. US Transplant Renal (08/29/2023): Questionable stones in transplant kidney with normal resistive indices and no hydronephrosis. Associated attestation - Hakeem Alamo MD - 08/30/2023 2:36 AM EDT Images from the original note were not included. DIVISION OF INFECTIOUS DISEASES ATTENDING ADDENDUM I agree with the fellow's note below, I have edited the note to reflect my thoughts including the history, physical exam, and medical decisions. I have independently interviewed and examined the patient on 08/29/23 and I discussed the findings and diagnostic/therapeutic plan with the fellow and we collaborated on medical decision making for this patient. Agree with current workup as ordered. If not successful in elucidating source of fever, can recommend other testing. Hakeem Alamo MD I can be reached via [email or web address] secure message (preferred) or Pager #[phone] documented in this encounter [facility] 08-28-2023 History and physical note Images from the original note were not included. Internal Medicine Admission History & Physical Patient: George Styles, 1970, [id number] Physician: Aric Turner MD, PGY1, Pager #[phone], [facility] service Date of face to face patient encounter: 08/28/2023. Chief Complaint: Fevers, cough, night sweats History Of Present Illness: George Styles is a 53 y.o. male with a history of HTN, CAD, EtOH cirrhosis, hepatorenal syndrome s/p combined Liver-kidney transplant on 04/13/20 who presents as a direct admission from clinic for 5 week history of recurrent fevers, cough, and night sweats. Patient presented to clinic with Dr. Latham on 08/28 with history of fevers that started on 07/23/23 per patient. He just took OCT medicine NyQuil, but didn't solve the problem. His fever and chill happened almost every day in past several weeks, with measured 102 F. After 12 days, he went to see her PCP on 08/20/2023 did lab test, COVID negative, CBC and CHEM7 with Cr elevated but without any medicine, CMV, EBV and BK all negative. 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 He was found elevated Cr and asked to be hydrated. He still felt difficult of breath, overall weakness, and cough with a little bit sputum. Last night, he still felt fever and chill but didn't measure it, just took tylenol. He saw Dr. Latham today and was admitted to hospital. He is keeping on his immunosuppressive medicine every day. Appetite is ok now. Urine is about 5184-6111 ml every day. Stool every day, no diarrhea or watery stool. [place]op[place] around has similar symptom. No travel history. Medical/Surgical History: Past Medical History: Diagnosis Date Acute renal failure CAD (coronary artery disease) Cirrhosis Dialysis patient T, Th, Sa- Started 06/01/2018 End stage renal disease 06/01/2018 Essential hypertension, benign Hepatic encephalopathy History of blood transfusion Liver cirrhosis Past Surgical History: Procedure Laterality Date PLACEMENT NEPHROSTOMY CATHETER PERCUTANEOUS W/ IMAGE GUIDANCE 05/17/2022 Surgeon: Enzo Heart DO; Location: [facility] INTERVENTIONAL RADIOLOGY (VIR) LIVER TRANSPLANT, ORTHOTOPIC N/A 04/12/2020 Laterality: N/A; Surgeon: LU Palma; Location: [facility] SAME DAY SURGERY MAIN OR KIDNEY TRANSPLANT W/O [place] NEPHRECTOMY N/A 04/12/2020 Laterality: N/A; Surgeon: LU Palma; Location: [facility] SAME DAY SURGERY MAIN OR OTHER SURGICAL 04/2018 Right chest dialysis cather- ANGIOPLASTY OF BRACHIOCEPHALIC TRUNK OR BRANCH WITH TRANSLUMINAL BALLOON PERCUTANEOUS FOR AVF OR GRA ANKLE SURGERY Right plate in ankle EXTRACTION TOOTH Social History: he reports that he quit smoking about 5 years ago. His smoking use included cigarettes. He started smoking about 35 years ago. He has a 20.00 pack-year smoking history. He quit smokeless tobacco use about 29 years ago. His smokeless tobacco use included chew. He reports that he does not currently use alcohol after a past usage of about 2.0 standard drinks of alcohol per week. He reports that he does not use drugs. Family History: family history includes Breast Cancer in his paternal aunt; Diabetes in his brother, father, maternal aunt, maternal grandmother, and mother; Heart Disease - Other in his brother, father, maternal grandfather, maternal grandmother, mother, paternal grandmother, and sister; Hypertension in his brother, father, maternal grandfather, maternal grandmother, mother, and paternal aunt; Lung Cancer in his maternal grandfather and maternal grandmother; Stroke in his father and mother. Medications: Prior to Admission Medications Prescriptions Allopurinol 100 MG tablet Sig: Take 2 tablets by mouth daily. Gabapentin 400 MG capsule Sig: Take 1 capsule by mouth at bedtime. Losartan 50 MG tablet Sig: Take 1 tablet by mouth 2 times daily. Mycophenolate sodium (MYFORTIC) [address] Sig: Take 2 tablets by mouth every 12 hours. Patient taking differently: Take 3 tablets by mouth every 12 hours. Sulfamethoxazole-trimethoprim 800-160 MG per tablet Sig: Take 1 tablet by mouth 2 times daily. Tacrolimus (PROGRAF) 0.5 MG capsule Sig: Take 1 capsule by mouth every 12 hours. Tamsulosin HCl 0.4 MG capsule Sig: take 1 capsule by mouth once daily amLODIPine 5 MG tablet Sig: Take 1 tablet by mouth daily. aspirin 81 MG Chew Tab chewable tablet Sig: Chew 1 tablet daily. Last refill from our office. Medication can be purchased over the counter going forward. atorvastatin 20 MG tablet Sig: Take 1 tablet by mouth at bedtime. Further refills to be provided by PCP's office. benzonatate 100 MG capsule Sig: Take 1 capsule by mouth 3 times daily as needed. faMOTIdine 20 MG tablet Sig: Take 1 tablet by mouth 2 times daily. melatonin 3 MG tablet Sig: Take 1 tablet by mouth at bedtime as needed for Insomnia. ondansetron 4 MG tablet Sig: Take 1 tablet by mouth every 8 hours as needed for Nausea / Vomiting. polyethylene glycol 17 g Pack packet Sig: Take 1 packet by mouth daily. Facility-Administered Medications: None Allergies: Allergies Allergen Reactions Shellfish-Derived Products Swelling Patient with lip and tongue swelling. Review of Systems: Review of Systems Constitutional: Positive for activity change, appetite change, chills, diaphoresis, fatigue and fever. HENT: Positive for sneezing and sore throat. Eyes: Negative. Respiratory: Positive for cough, chest tightness and shortness of breath. Cardiovascular: Positive for chest pain. Gastrointestinal: Positive for abdominal distention. Endocrine: Negative. Genitourinary: Negative. Musculoskeletal: Negative. Physical Exam: Vitals: 08/29/23309 BP: 129/70 Pulse: 87 Resp: 16 Temp: 98.6 F (37 C) SpO2: 93% O2 Device: nasal cannula (08/29/23309) Flow (L/min): 1 (08/29/23309) Gen: Alert, Awake, NAD Eyes: PERRLA, EOMI, no icterus ENT: MMM, trachea midline Resp: Bilateral clear, no labored breath. Cardio: RRR, normal S1, S2, no M/R/G. No JENSEN. GI: S/NT/ND, NABS MSK: No joint effusions or erythema: Skin: No jaundice or rash Neuro: Strength grossly equal in muscle groups of the bilateral UEs and LEs. Psych: Ox3, appropriate affect and cognition Data Review: WBC/Hgb/Hct/Plts: 4.74/12.4/37.9/262 (08/28 2016) Na/K+/Phos/Mg/Ca: 134/4.3/--/--/-- (08/28 2016) Bun/Creat/Cl/CO2/Glucose: 22/1.62/103/22/-- (08/28 2016) Additional Labs: IMMUNOCOMPROMISED RESPIRATORY PANEL all negative Impression/Plan: George Styles is a 53 y.o. 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 His post-transplant course was noteworthy for nephrostomy tube (05/17/2022-09/10/2022) due to concern for ureteral stone. He presents as a direct admission for fever, cough, for infectious workup Cough, Fever, Night Sweats: Patient is compliance with his immunosuppressive medicine, recently visit in PCP did CBC WBC in normal range and CMV, EBV, BK al negative. COVID and other respiratory virus has been done recently all showed negative. Concern for other optimistic infection under the immunosuppressive setting. - CXR - UA - Blood cultures pending - Influenza swab - immunocompromised respiratory panel all negative - Covid testing negative - Urinary histoplasmosis - PJP, candid PCR - [employer] transplant ID Acute Kidney Injury with Kidney Transplant : Patient is s/p combined liver/kidney transplant in 04/13/20. Patient currently takes tacrolimus 0.5mg BID and mycophenolate 540mg BID for immunosuppression. - Urine electrolytes,urinalysis,and transplant renal US. - CMV serum PCR negative - BK serum negative - EBV negative - Could Order alloscreen - Hold tacrolimus and get random levels to assess for toxicity. - Renally dose all medications as needed. S/p Liver Transplant: combined liver/kidney transplant in 04/13/20. Patient currently takes tacrolimus 0.5mg BID and mycophenolate 360mg BID for immunosuppression. - immunosuppresion management as above - obtain hepatic function panel Chronic Medical Conditions Essential Hypertension- controlled - continue amlodipine 5mg, losartan 50mg BID CAD: non-obstructive CAD on [facility] 2018. - continue aspirin 81mg daily, atorvastatin 20mg daily Gout: continue allopurinol 200mg daily BPH: continue flomax 0.4mg daily DVT prophylaxis with Heparin Disposition: TM1 Code status is Full Staffed with Attending on rounds, Signed, Aric Turner MD Attending Physician Addendum I saw and personally examined Mr. Styles with the transplant medicine team. I discussed the findings and plan of the case. I agree with the history, physical examination, and medical decisions as outlined above. Briefly: Mr. Styles is a 53 y.o. year-old male with a past medical history of ESRD secondary to Hypertensive Nephrosclerosis. He received a Donation after Circulatory donor Liver transplant on 04/13/20. Mr. Styles was initially admitted to the hospital on 08/28/2023 for an initial diagnosis of Kidney replaced by transplant with FUO. Transplant Physician: Erma Canas, Melania Pierson, Luisa Steven, Renee Rivera, Daisha Max Steam Press Operator: José Miguel Garnica All Txt: 04/13/2020 (Kidney), 04/13/2020 (Liver) Current I/S Meds: Current Immunosuppressive Medication(s) Immunosuppressive Agents Mycophenolate sodium (MYFORTIC) tablet DR 540 mg 540 mg, Oral, EVERY 12 HOURS NON-STANDARD, Give on an empty stomach. Swallow tablet whole; do not crush, split or chew. Contact pharmacy if alternate route or dose is needed. Tacrolimus (PROGRAF) capsule 0.5 mg 0.5 mg, Oral, EVERY 12 HOURS, Do not split, break, crush, or open doses of this medication. Contact pharmacy if altered dose or route needed. LABS Lab Results Component Value Date WBC 4.92 08/29/2023 HGB 12.2 (L) 08/29/2023 PLATELET 233 08/29/2023 Lab Results Component Value Date SODIUM 133 (L) 08/29/2023 POTASSIUM 4.5 08/29/2023 CHLORIDE 105 08/29/2023 CO2 20 (L) 08/29/2023 BUN 19 08/29/2023 CREATSERUM 1.55 (H) 08/29/2023 GLUCOSE 108 (H) 08/29/2023 Lab Results Component Value Date CALCIUM 9.2 08/17/2023 PHOSPHORUS 3.1 07/03/2023 Lab Results Component Value Date CREATSERUM 1.55 (H) 08/29/2023 CREATSERUM 1.62 (H) 08/28/2023 CREATSERUM 1.48 08/17/2023 CREATSERUM 1.04 07/03/2023 CREATSERUM 1.17 04/28/2023 CREATSERUM 5.05 (H) 11/19/2018 I/S levels: No results found for: CYCLOSPORIN , CYCLOSPORIN2 , [id number] , CYCLORAND No results found for: SIROLIMUS , RAPAMUNE , RAPAMYCIN No results found for: EVEROLIMUS , EVRLMSTRGH , EVERTRGHMANE , EVRLMSRND Lab Results Component Value Date TACROLIMUS 8.9 08/29/2023 TACROTRGHMAN 4.1 08/17/2023 Patient presently with fever of unknown origin. Etiology unclear Patient has had prior workup which has been unremarkable Puente culturing Obtaining imaging chest abdomen and pelvis Requesting input from Infectious Disease. Rest as above. Kevin Sage MD Pager [phone] documented [facility] History of Present illness Narrative Images from the original note were not included. 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 Steam Press Operator: Anayeli Burt Date of Liver Transplant: 04/13/2020 (Kidney), 04/13/2020 (Liver) 3 years 4 months post Liver/Kidney Transplant Primary Disease: Hypertensive Nephrosclerosis Transplant Supervisor Of Guidance And Testing: Erma Roe/ Daisha Max Primary Care physician: Zuly Bruno Last Transplant Clinic appointment :06/12/23 with BA Olsen combined liver/kidney transplant from a Donation after Circulatory donor on 04/13/20 due to ETOH cirrhosis and Hypertensive Nephrosclerosis. 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 Prior to transplant, the cPRA of the recipient was 0%. Donor KDPI 9%. MONITORING: COMMENTS: On DGF Protocol? Discontinued Dialysis discontinued by Dr. Latham on 04/26/20 due to recovered graft function HLA Match: A1 B2 DR1 Living Donor? no Increased Risk donor? no EBV IgG Donor / Recipient D+ / R+ CMV IgG Donor / Recipient: D- / R- Ureteral Stent? Was removed on 05/23 Removed 05/23/20 Hepatitis C+/KUMAR- donor? no Hepatitis C+/KUMAR+ donor? no IMMUNOSUPPRESSION AND LABS: Current Immunosuppressive Medication(s) Immunosuppressive Agents Mycophenolate sodium (MYFORTIC) [address] Take 2 tablets by mouth every 12 hours. Tacrolimus (PROGRAF) 0.5 MG capsule Take 1 capsule by mouth every 12 hours. I/S levels: Lab Results Component Value Date TACROLIMUS 4.1 05/16/2022 TACROLIMUS 6.4 05/14/2020 TACROLIMUS 4.8 05/12/2020 TACROTRGHMAN 4.1 08/17/2023 TACROTRGHMAN 7.0 07/03/2023 TACROTRGHMAN 5.9 04/28/2023 CHEMISTRY: Lab Results Component Value Date CREATSERUM 1.48 08/17/2023 CREATSERUM 1.04 07/03/2023 CREATSERUM 1.17 04/28/2023 HEMATOLOGY: Lab Results Component Value Date WBC 4.7 08/17/2023 WBC 5.8 07/03/2023 WBC 5.8 04/28/2023 Lab Results Component Value Date HGB 14.2 08/17/2023 HGB 16.4 07/03/2023 HGB 18.4 04/28/2023 IMMUNOLOGY: Lab Results Component Value Date CMVPCR negative 08/17/2023 CMVPCR <50 05/12/2020 EBVBYPCR <1,000 05/12/2020 EBVDNAVLME negative 08/17/2023 BKVIRALP <500 06/12/2022 BKVIRALP <500 03/15/2021 BKVIRALP <500 05/12/2020 CURRENT MEDICATIONS: Allopurinol, Atorvastatin, Gabapentin, Losartan, Melatonin, Mycophenolate sodium, Ondansetron, Polyethylene glycol, Tacrolimus, Tamsulosin HCl, amLODIPine, aspirin, and faMOTIdine === None Specified Preferred Lab: [facility] Change in lab frequency / new order today: No- continue labs every 3 months Labs needed in clinic today? Yes COORDINATOR NOTES: Per note from Victor Hugo liver Coordinator on 08/24/23 :Patient seen in ED last Thursday for elevated temp, fever of 102. Cr above baseline at 1.4. Urinalysis and Covid were negative Patient was instructed by transfer center to call and schedule transplant follow up Images from the original note were not included. Nursing Assessment In Clinic (see Clinic Prep Sheet for additional information) Patient is accompanied to clinic today by: self Did patient require a wheelchair or medical transport for appointment: no Any changes in address or contact information: no Insurance on file correct: yes Currently employed: no VITALS BP Readings from Last 3 Encounters: 08/28/23 106/41 06/12/23 146/77 01/16/23 142/75 Pulse Readings from Last 3 Encounters: 08/28/23 116 06/12/23 76 01/16/23 76 Wt Readings from Last 6 Encounters: 08/28/23 93 kg (205 lb 1.6 oz) 06/12/23 97.9 kg (215 lb 12.8 oz) 01/16/23 97.5 kg (214 lb 14.4 oz) 09/10/22 97.5 kg (215 lb) 06/27/22 99.2 kg (218 lb 9.6 oz) 06/27/22 99.8 kg (220 lb) Body mass index is 32.12 kg/m . Lab Results Component Value Date GLUCOSE 137 08/17/2023 Lab Results Component Value Date HGBA1C 6.0 (H) 06/12/2022 IMMUNOSUPPRESSION Current Immunosuppressive Medication(s) Immunosuppressive Agents Mycophenolate sodium (MYFORTIC) [address] Take 2 tablets by mouth every 12 hours. Tacrolimus (PROGRAF) 0.5 MG capsule Take 1 capsule by mouth every 12 hours. ADDITIONAL INFORMATION: None Specified, [id number] [place] [address] - [address] [facility] [address] [facility] [id number] [facility] [address] [facility] [address] [facility][id number] [place] [address] [address] [facility] [address] [facility] [address] [facility] [address], [facility] [address] [address] ROS and SCREEN: Chest Pain: negative Cough: Positive, had for the last month SOB: Positive, started last month along with cough Abd Pain: negative Nausea: negative Vomiting: negative Diarrhea: negative Constipation: Positive,taking miralax Dysuria: negative Edema: negative Tremors: Positive, occasional Headaches: Positive, occasional Wound issues: negative Alcohol consumption: no Cigarette smoking, smokeless tobacco or vaping/e-cigarette use: no Marijuana (any form), CBD oil or street drug use: no QUESTIONS OR CONCERNS TO ADDRESS WITH PHYSICIAN: I saw George Styles at the [facility] on 08/28/2023. Patient is a 53 y.o. 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 His [place] kidney disease was noted to be presumed hepato-renal syndrome. His post-transplant course was noteworthy for good allograft function. Hospitalized at [facility] in April 2022 with FAYE. Found to have an obstructing stone in the transplant ureter. Had a nephrostomy tube and stone seemed to have resolved later. Interval history: He started having fevers, chills, cough since July 23 or so. Went to his local PCP and was investigated for infections. Urine and blood studies wee negative. Since the symptoms continued, he went to the local ED on 08/20/2023. All the investigations done there were negative as well; CXR, CMV and EBV PCR including. White blood count remained normal. Denies any travel history, sick contacts or exposure to animals. Denies nausea, diarrhea and abdominal pn. Able to stay hydrated but did lose some weight. Review of Systems done by the RN; see separate note Current Outpatient Medications Medication Sig Allopurinol 100 MG tablet Take 2 tablets by mouth daily. amLODIPine 5 MG tablet Take 1 tablet by mouth daily. aspirin 81 MG Chew Tab chewable tablet Chew 1 tablet daily. Last refill from our office. Medication can be purchased over the counter going forward. atorvastatin 20 MG tablet Take 1 tablet by mouth at bedtime. Further refills to be provided by PCP's office. benzonatate 100 MG capsule Take 1 capsule by mouth 3 times daily as needed. faMOTIdine 20 MG tablet Take 1 tablet by mouth 2 times daily. Gabapentin 400 MG capsule Take 1 capsule by mouth at bedtime. Losartan 50 MG tablet Take 1 tablet by mouth 2 times daily. melatonin 3 MG tablet Take 1 tablet by mouth at bedtime as needed for Insomnia. Mycophenolate sodium (MYFORTIC) [address] Take 2 tablets by mouth every 12 hours. (Patient taking differently: Take 3 tablets by mouth every 12 hours.) ondansetron 4 MG tablet Take 1 tablet by mouth every 8 hours as needed for Nausea / Vomiting. polyethylene glycol 17 g Pack packet Take 1 packet by mouth daily. Sulfamethoxazole-trimethoprim 800-160 MG per tablet Take 1 tablet by mouth 2 times daily. Tacrolimus (PROGRAF) 0.5 MG capsule Take 1 capsule by mouth every 12 hours. Tamsulosin HCl 0.4 MG capsule take 1 capsule by mouth once daily Past Medical History: Past Medical History: Diagnosis Date Acute renal failure CAD (coronary artery disease) Cirrhosis Dialysis patient T, Th, Sa- Started 06/01/2018 End stage renal disease 06/01/2018 Essential hypertension, benign Hepatic encephalopathy History of blood transfusion Liver cirrhosis Past Surgical History: Past Surgical History: Procedure Laterality Date PLACEMENT NEPHROSTOMY CATHETER PERCUTANEOUS W/ IMAGE GUIDANCE 05/17/2022 Surgeon: Enzo Heart DO; Location: [facility] INTERVENTIONAL RADIOLOGY (VIR) LIVER TRANSPLANT, ORTHOTOPIC N/A 04/12/2020 Laterality: N/A; Surgeon: LU Palma; Location: [facility] SAME DAY SURGERY MAIN OR KIDNEY TRANSPLANT W/O [place] NEPHRECTOMY N/A 04/12/2020 Laterality: N/A; Surgeon: LU Palma; Location: [facility] SAME DAY SURGERY MAIN OR OTHER SURGICAL 04/2018 Right chest dialysis cather- ANGIOPLASTY OF BRACHIOCEPHALIC TRUNK OR BRANCH WITH TRANSLUMINAL BALLOON PERCUTANEOUS FOR AVF OR GRA ANKLE SURGERY Right plate in ankle EXTRACTION TOOTH Family History: family history includes Breast Cancer in his paternal aunt; Diabetes in his brother, father, maternal aunt, maternal grandmother, and mother; Heart Disease - Other in his brother, father, maternal grandfather, maternal grandmother, mother, paternal grandmother, and sister; Hypertension in his brother, father, maternal grandfather, maternal grandmother, mother, and paternal aunt; Lung Cancer in his maternal grandfather and maternal grandmother; Stroke in his father and mother. Social History: reports that he quit smoking about 5 years ago. His smoking use included cigarettes. He started smoking about 35 years ago. He has a 20.00 pack-year smoking history. He quit smokeless tobacco use about 29 years ago. His smokeless tobacco use included chew. He reports that he does not currently use alcohol after a past usage of about 2.0 standard drinks of alcohol per week. He reports that he does not use drugs. Physical Exam: Blood pressure 106/41, pulse 116, temperature 97.3 F (36.3 C), temperature source Temporal, height 1.702 m (5' 7 ), weight 93 kg (205 lb 1.6 oz). Constitutional: Well developed, well nourished, in no physical distress. HEENT: PERRL, no scleral icterus, moist pharynx Neck: Supple, no JVD, no carotid bruits Lungs: Clear to auscultation bilaterally, no labored breathing, no W/R/R Cardiovascular: S1 & S2 with regular rhythm and normal rate, no pericardial rub Abdominal: soft, NTTTP, ND, NABS; Extremities: No edema, no cyanosis or clubbing, equal distal pulses Neurological: AA/Ox3, moves all four extremities Skin: No rashes or bruises : No CVA tenderness to palpation Laboratory Findings: WBC, MANUAL ENTER Date Value Ref Range Status 08/17/2023 4.7 Final Hemoglobin (HGB), MANUAL ENTER Date Value Ref Range Status 08/17/2023 14.2 Final HEMATOCRIT (HCT), MANUAL ENTER Date Value Ref Range Status 08/17/2023 44.1 Final PLATELETS, MANUAL ENTER Date Value Ref Range Status 08/17/2023 201 Final SODIUM (NA), MANUAL ENTER Date Value Ref Range Status 08/17/2023 139 mmol/L Final Chloride (CL), MANUAL ENTER Date Value Ref Range Status 08/17/2023 102 Final Blood Urea Nitrogen (BUN), MANUAL ENTER Date Value Ref Range Status 07/03/2023 11 Final POTASSIUM (K+), MANUAL ENTER Date Value Ref Range Status 08/17/2023 3.6 Final HCO3 Date Value Ref Range Status 04/13/2020 28.6 (H) 22.0 - 26.0 mmol/L Final CREATININE, SERUM, MANUAL ENTER Date Value Ref Range Status 08/17/2023 1.48 Final GLUCOSE, MANUAL ENTER Date Value Ref Range Status 08/17/2023 137 Final PT Date Value Ref Range Status 05/18/2022 14.4 (H) 11.9 - 14.2 sec Final PTT Date Value Ref Range Status 05/18/2022 31.0 24.0 - 34.3 sec Final Total Protein Date Value Ref Range Status 06/12/2022 7.5 6.4 - 8.3 g/dL Final ALBUMIN, MANUAL ENTER Date Value Ref Range Status 08/17/2023 3.2 Final AST, MANUAL ENTER Date Value Ref Range Status 08/17/2023 44 Final ALT, MANUAL ENTER Date Value Ref Range Status 08/17/2023 61 Final GGT, MANUAL ENTER Date Value Ref Range Status 08/17/2023 107 Final Bilirubin, Total, MANUAL ENTER Date Value Ref Range Status 08/17/2023 1.3 Final CALCIUM (CA), MANUAL ENTER Date Value Ref Range Status 08/17/2023 9.2 Final Phosphate (PO4), Manual Enter Date Value Ref Range Status 07/03/2023 3.1 Final MAGNESIUM (MG), MANUAL ENTER Date Value Ref Range Status 07/03/2023 1.7 Final TOTAL CHOLESTERL, MANUAL ENTER Date Value Ref Range Status 08/16/2021 98 Final HDL, MANUAL ENTER Date Value Ref Range Status 08/16/2021 42 Final LDL, MANUAL ENTER Date Value Ref Range Status 08/16/2021 50 Final TRIGLYCERIDES, MANUAL ENTER Date Value Ref Range Status 08/16/2021 57 Final Assessment and Plan: Patient is a 53 y.o. male, s/p simultaneous kidney-liver transplant. 1. Immunosuppression: George Styles is currently taking tacrolimus and mycophenolate for immunosuppression management and is tolerating it well. No changes made today with this regimen. 2. Allograft function: Is stable, based on the serum creatinine trends. 3. Hypertension: Also stable based on the home BP recordings. No changes made with the current anti-hypertensive regimen. Continue to monitor BP frequently and record. 4. Anemia: Hemoglobin and iron studies are within normal limits. Fever of Unknown Origin: He now had 5 weeks of symptoms without a diagnosis. I am admitting him to [facility] for further evaluation and a transplant ID consult. I am specifically concerned about histoplasmosis, cryptococcosis, aspergillosis among other opportunistic infections. Please do not hesitate to contact me if you have any questions. Steve Latham MD gunsmith apprentice Division of Nephrology [facility] documented in this encounter [facility] 08-28-2023 Instructions Mainor Busby RN - 08/28/2023 2:15 PM EDT - Admission for fevers, cough, and night sweats documented in this encounter [facility] 08-19-2023 History of Present illness Narrative [facility] OP RX OUTREACH ADVANCED: Call Information: Date and Time of Contact: 08/19/2023 2:52 PM Method of Contact: By Phone Contact Type: Prescriptions Contactor: [facility] OP Contactee: Patient Shipping/Pickup: Medicare B Refill?: No Medication Name: Tacro 0.5mg Delivery Method: Air Delivery Location: Home Signature Required: No Mailing/Pickup Date: 08/25/2023 Shipping Address: [address] [place] [address] Contact Info: Specialty ([place]) [phone] [facility] [phone] [facility] [phone] [facility] [phone] Bedside Delivery ([facility]) [phone] documented in this encounter [facility] 06-12-2023 History of Present illness Narrative Images from the original note were not included. George Styles is a 53 y.o. 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 No longer follows with a local biomass power plant superintendent. History of Present Illness: Since George was most recently evaluated in clinic on 06/12/2022, he has not had any hospitalizations, surgeries, or infections. Notable(s) since transplant: 1. 05/17/2022-09/10/2022 nephrostomy tube due to concern for ureteral stone Review of Systems Constitutional: negative for fever or fatigue Cardiovascular: negative shortness of breath on exertion or swelling Gastrointestinal: negative for diarrhea, heartburn, vomiting +nausea in the evening Genitourinary: negative for dysuria Working for income: Not working due to disability Physical Exam: Vital Signs: Blood pressure 146/77, pulse 76, temperature 97.3 F (36.3 C), temperature source Temporal, weight 97.9 kg (215 lb 12.8 oz). Body mass index is 33.8 kg/m . Cardiovascular: no swelling Neuro: no gross focal neurological deficit Allergies: Allergies Allergen Reactions Shellfish-Derived Products Swelling Patient with lip and tongue swelling. Medications: Current Outpatient Medications Medication Sig Allopurinol 100 MG tablet Take 2 tablets by mouth daily. amLODIPine 5 MG tablet Take 1 tablet by mouth daily. aspirin 81 MG Chew Tab chewable tablet Chew 1 tablet daily. Last refill from our office. Medication can be purchased over the counter going forward. atorvastatin 20 MG tablet Take 1 tablet by mouth at bedtime. Further refills to be provided by PCP's office. faMOTIdine 20 MG tablet Take 1 tablet by mouth 2 times daily. Gabapentin 400 MG capsule Take 1 capsule by mouth at bedtime. Losartan 50 MG tablet Take 1 tablet by mouth 2 times daily. melatonin 3 MG tablet Take 1 tablet by mouth at bedtime as needed for Insomnia. Mycophenolate sodium (MYFORTIC) [address] Take 2 tablets by mouth every 12 hours. polyethylene glycol 17 g Pack packet Take 1 packet by mouth daily. Tacrolimus (PROGRAF) 0.5 MG capsule Take 1 capsule by mouth every 12 hours. Tamsulosin HCl 0.4 MG capsule take 1 capsule by mouth once daily ondansetron 4 MG tablet Take 1 tablet by mouth every 8 hours as needed for Nausea / Vomiting. Labs: Lab Results Component Value Date WBC 5.8 04/28/2023 HGB 18.4 04/28/2023 HCT 49.8 04/28/2023 PLATELET 248 04/28/2023 Lab Results Component Value Date SODIUM 144 04/28/2023 CHLORIDE 107 04/28/2023 BUN 12.0 04/28/2023 POTASSIUM 4.0 04/28/2023 CREATSERUM 1.17 04/28/2023 GLUCOSE 110 04/28/2023 Prot/Creat Ratio Date Value Ref Range Status 04/28/2023 0.14 Final Lab Results Component Value Date TACROLIMUS 5.9 04/28/2023 Current Immunosuppressive Medication(s) Immunosuppressive Agents Mycophenolate sodium (MYFORTIC) [address] Take 2 tablets by mouth every 12 hours. Tacrolimus (PROGRAF) 0.5 MG capsule Take 1 capsule by mouth every 12 hours. Assessment and Recommendations 1. Kidney transplant Tacrolimus - no change in dose; goal 4 to 6 ng/dL Mycophenolate - no change No longer taking prophylaxis for pneumocystis jiroveci pneumonia (PJP) 2. Essential Hypertension - controlled 3. Incisional hernia - states he has a hernia. CT scan 05/21/2023 no abnormalities. Continues to have occassional LUQ pain but does not want a referral to general surgery at this time. 4. Glycemic Control - diet controlled 5. Prescriptions for immunosuppression medications were sent electronically and labs were ordered. 6. Mr. Styles has been asked to return to the clinic in 1 year and labs to be drawn every 3 month(s) however we will see the patient earlier should the need arise. The data reviewed and analyzed for the above problems included medical records and lab results. Rebeca MITCHELL, RN, BODY DESIGN CHECKER-BC, CCTN Certified Nurse Practitioner [facility] [address] [facility] [address] documented in this encounter [facility] 06-12-2023 Instructions JEANNA Hess - 06/12/2023 3:00 PM EDT No change in immunosuppression. documented in this encounter [facility] 06-10-2023 History of Present illness Narrative [facility] RX [facility]REACH [facility]VANCED: Call Information: Method of Contact: By Phone Contact Type: Prescriptions Contactor: [facility] OP Contactee: Patient Contact Outcome: Left message Shipping/Pickup: Medication Name: Mycophenolate sod 180 mg Contact Info: Specialty ([place]) [phone] [facility] [phone] [facility] [phone] [place] [phone] Bedside Delivery ([facility]) [phone] [facility] OP RX OUTREACH ADVANCED: Call Information: Date and Time of Contact: 06/12/2023 9:43 AM Method of Contact: By Phone Contact Type: Prescriptions Contactor: [facility] OP Contactee: Patient Contact Outcome: Left message and Follow-up Shipping/Pickup: Medicare B Refill?: No Medication Name: Myco 180 Contact Info: Specialty ([place]) [phone] [facility] [phone] [facility] [phone] [place] [phone] Bedside Delivery ([facility]) [phone] [facility] OP RX OUTREACH ADVANCED: Call Information: Date and Time of Contact: 06/12/2023 10:08 AM Method of Contact: By Phone Contact Type: Prescriptions Contactor: [facility] Contactee: Patient Shipping/Pickup: Medicare B Refill?: No Medication Name: Mycophenolate 180mg DR Delivery Method: Air Delivery Location: Home Signature Required: No Mailing/Pickup Date: 06/17/2023 Shipping Address: [address] [place] [address] Contact Info: Specialty ([place]) [phone] [facility] [phone] [facility] [phone] David [phone] Bedside Delivery ([facility]) [phone] documented in this encounter [facility] 04-13-2023 Note MS Cardiology - [facility] Subjective George Styles is a 53 y.o. year old male patient being seen for 1.5 year follow up hypertension, hyperlipidemia, and hx of renal transplant. Had labs last month. Denies chest pain and SOB. Has minimal LE edema and is c/o fatigue. Patient Active Problem List Diagnosis Acute megaloblastic anemia FAYE (acute kidney injury) (CMS/HCC) Alcoholic cirrhosis (CMS/HCC) Alcoholism (CMS/HCC) Anasarca Anemia Ascites CAD (coronary artery disease) Cardiovascular stress test abnormal Liver failure (CMS/HCC) Chronic liver disease and cirrhosis (CMS/HCC) Chest pain Acute renal failure syndrome (CMS/HCC) Chronic renal failure End-stage renal disease (CMS/HCC) -donor kidney transplant recipient Liver transplant candidate Increased ammonia level History of gastrointestinal hemorrhage Essential hypertension, benign History of liver transplant (CMS/HCC) Pre-transplant evaluation for liver transplant Obesity (BMI 30.0-34.9) Nausea & vomiting Metabolic encephalopathy Hepatic encephalopathy (CMS/HCC) Severe protein-calorie malnutrition (Campos: less than 60% of standard weight) (CMS/HCC) Family History Problem Relation Name Age of Onset Coronary artery disease Mother Coronary artery disease Father Social History Tobacco Use Smoking status: Former Types: Cigarettes Smokeless tobacco: Never Substance Use Topics Alcohol use: Not Currently HPI George is seen in follow up via telemedicine. He is a 50 yo man with history of ESRD was on HD and now is s/p renal transplant 04/13/2020 at [facility]. He also had alcoholic liver cirrhosis and had a liver transplant at the same time of the renal transplant. In 2019 he had severe anemia and mild troponin elevation and abnormal stress test. The elevated troponin was thought related to supply demand mismatch. He had a coronary angiogram prior to that at [facility] that did not show signficant obstructive disease. He has been doing well. No chest pain. He reports occasional minimal leg swelling. He has no palpitations. No dizziness or lightheadedness. No shortness of breath. Review of Systems Constitutional: Positive for malaise/fatigue. Cardiovascular: Positive for leg swelling (minimal). Neurological: Positive for headaches. Objective Visit Vitals BP 132/77 (BP Location: Right arm, Patient Position: Sitting) Pulse 76 Ht 1.702 m (5' 7 ) Wt 98.9 kg (218 lb) SpO2 96% BMI 34.14 kg/m??? Smoking Status Former BSA 2.16 m??? Physical Exam Constitutional: Appearance: He is well-developed. He is not ill-appearing. HENT: Head: Normocephalic and atraumatic. Nose: Nose normal. Eyes: General: No scleral icterus. Pupils: Pupils are equal, round, and reactive to light. Neck: Thyroid: No thyromegaly. Vascular: No JVD. Cardiovascular: Rate and Rhythm: Normal rate and regular rhythm. Pulses: Radial pulses are 2+ on the right side and 2+ on the left side. Heart sounds: Normal heart sounds. No murmur heard. No friction rub. No gallop. Pulmonary: Effort: Pulmonary effort is normal. No respiratory distress. Breath sounds: Normal breath sounds. No wheezing or rales. Chest: Chest wall: No tenderness. Abdominal: General: Bowel sounds are normal. There is no distension. Palpations: Abdomen is soft. Tenderness: There is no abdominal tenderness. Musculoskeletal: General: No swelling. Cervical back: Neck supple. Skin: General: Skin is warm and dry. Neurological: General: No focal deficit present. Mental Status: He is alert and oriented to person, place, and time. Psychiatric: Mood and Affect: Mood normal. Behavior: Behavior is cooperative. Judgment: Judgment normal. Allergies No Known Allergies Medications Current Outpatient Medications: allopurinol (Zyloprim) 100 mg tablet, allopurinol 100 mg tablet take 2 tablets by mouth once daily, Disp: , Rfl: amLODIPine (Norvasc) 5 mg tablet, Take 5 mg by mouth in the morning., Disp: , Rfl: aspirin 81 mg EC tablet, in the morning., Disp: , Rfl: atorvastatin (Lipitor) 20 mg tablet, Take 20 mg by mouth in the morning., Disp: , Rfl: famotidine (Pepcid) 20 mg tablet, Take 20 mg by mouth twice a day., Disp: , Rfl: gabapentin (Neurontin) 400 mg capsule, gabapentin 400 mg capsule take 1 capsule by mouth at bedtime, Disp: , Rfl: losartan (Cozaar) 50 mg tablet, Take 50 mg by mouth twice a day., Disp: , Rfl: melatonin 3 mg tablet, Take 3 mg by mouth if needed each day., Disp: , Rfl: mycophenolate (Myfortic) 180 mg EC tablet, Take 360 mg by mouth every 12 (twelve) hours., Disp: , Rfl: tacrolimus (Prograf) 0.5 mg capsule, Take 0.5 mg by mouth twice a day., Disp: , Rfl: tamsulosin (Flomax) 0.4 mg 24 hr capsule, Take 0.4 mg by mouth in the morning., Disp: , Rfl: Recent Labs No visits with results within 6 Month(s) from this visit. Latest known visit with results is: Legacy Encounter on (more content not included)... [facility] 03-12-2023 History of Present illness Narrative [facility] RX OUTREACH ADVANCED: Call Information: Date and Time of Contact: 03/12/2023 10:34 AM Method of Contact: By Phone Contact Type: Prescriptions Contactor: [facility] Contactee: Patient Shipping/Pickup: Medicare B Refill?: No Medication Name: Mycophenoloate sod 360 mg prednisone 5mg Delivery Method: Air Delivery Location: Home Signature Required: No Mailing/Pickup Date: 03/16/2023 Shipping Address: [address] [place] [id number] Contact Info: Specialty ([place]) [phone] Jakob [phone] [facility] [phone] David [phone] Bedside Delivery ([facility]) [phone] [facility] RX OUTREACH ADVANCED: Call Information: Date and Time of Contact: 03/12/2023 12:34 PM Method of Contact: By Phone Contact Type: Prescriptions Contactor: [facility] Contactee: Patient Contact Outcome: Patient declined to fill and Patient to call back Patient Declined Fill Detail/Reason: Tacrolimus 0.5mg: Pt has a full bottle of 100 and half of a smaller bottle, enough for at least 50 days. He will call when he has 2 weeks left. Shipping/Pickup: Medicare B Refill?: No Medication Name: Mycophenolate 180mg Delivery Method: Air Delivery Location: Home Signature Required: No Mailing/Pickup Date: 03/19/2023 Shipping Address: [address] [place] [address] [address] Contact Info: Specialty ([place]) [phone] [facility] [phone] [facility] [phone] David [phone] Bedside Delivery ([facility]) [phone] documented in this encounter [facility] 03-10-2023 History of Present illness Narrative [facility] RX OUTREACH ADVANCED: Call Information: Date and Time of Contact: 03/10/2023 12:00 PM Method of Contact: By Phone Contact Type: Prescriptions Contactor: [facility] Contactee: Patient Contact Outcome: Left message and Call back later Shipping/Pickup: Medication Name: Mycophenolate ; Tacrolimus Contact Info: Specialty ([place]) [phone] [facility] [phone] [facility] [phone] David [phone] Bedside Delivery ([facility]) [phone] documented in this encounter [facility] 03-10-2023 History of Present illness Narrative [facility] RX OUTREACH ADVANCED: Call Information: Date and Time of Contact: 03/10/2023 12:00 PM Method of Contact: By Phone Contact Type: Prescriptions Contactor: [facility] Contactee: Patient Contact Outcome: Left message and Call back later Shipping/Pickup: Medication Name: Mycophenolate ; Tacrolimus Contact Info: Specialty ([place]) [phone] [facility] [phone] [facility] [phone] David [phone] Bedside Delivery ([facility]) [phone] [facility] RX OUTREACH ADVANCED: Call Information: Date and Time of Contact: 03/12/2023 10:32 AM Method of Contact: By Phone Contact Type: Prescriptions Contactor: [facility] Contactee: Patient Contact Outcome: Left message Shipping/Pickup: Medication Name: Mycophenolate sodium (MYFORTIC) 180 MG Tab tacrolimus 0.5 mg Contact Info: Specialty ([place]) [phone] Jakob [phone] [facility] [phone] David [phone] Bedside Delivery ([facility]) [phone] documented [facility] History of Present illness Narrative -Referring Provider for today's consult: Daisha Max DO -Primary Care Provider: Zuly Bruno History of Present Illness George Styles is a 52 y.o. male who presents to the [facility] Trans[facility] Hepatology [facility] today for follow-up of post liver transplant. I have reviewed his medical, surgical, family and social history and have updated medication and allergy information in the computerized patient record. I have also personally reviewed pertinent outside hospital documentation, laboratory results and imaging as outlined below. 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 HLA mismatch was 1A, 2B, 1DR. Prior to transplant, the cPRA of the recipient was 0%. Donor KDPI 9%. His post transplant course was complicated by delayed graft function and he required iHD until 04/26/2020. He also had c.dif colitis in 04/2022. Since his last clinic appointment, he was admitted with an FAYE due to obstructing stone in the transplant ureter and a nephrostomy tube was placed.He has since followed up with Nephrology and nephrostomy tube was removed. He is feeling well today other then increased fatigue. Reports that he is waking up at night to urinate His weight has been stable, though is overall increased since transplant. He has been less active recently. Denies abdominal pain, fevers, chills, jaundice, scleral icterus, etc. Past Medical History Past Medical History: Diagnosis Date Acute renal failure CAD (coronary artery disease) Cirrhosis Dialysis patient T, Th, Sa- Started 06/01/2018 End stage renal disease 06/01/2018 Essential hypertension, benign Hepatic encephalopathy History of blood transfusion Liver cirrhosis Past Surgical History Past Surgical History: Procedure Laterality Date PLACEMENT NEPHROSTOMY CATHETER PERCUTANEOUS W/ IMAGE GUIDANCE 05/17/2022 Surgeon: Enzo Heart DO; Location: [facility] INTERVENTIONAL RADIOLOGY (VIR) LIVER TRANSPLANT, ORTHOTOPIC N/A 04/12/2020 Laterality: N/A; Surgeon: LU Palma; Location: [facility] SAME DAY SURGERY MAIN OR KIDNEY TRANSPLANT W/O [place] NEPHRECTOMY N/A 04/12/2020 Laterality: N/A; Surgeon: LU Palma; Location: [facility] SAME DAY SURGERY MAIN OR OTHER SURGICAL 04/2018 Right chest dialysis cather- ANGIOPLASTY OF BRACHIOCEPHALIC TRUNK OR BRANCH WITH TRANSLUMINAL BALLOON PERCUTANEOUS FOR AVF OR GRA ANKLE SURGERY Right plate in ankle EXTRACTION TOOTH Social History Social History Tobacco Use Smoking status: Former Packs/day: 1.00 Years: 20.00 Pack years: 20.00 Types: Cigarettes Start date: 07/19/1988 Quit date: 05/14/2018 Years since quittin.6 Smokeless tobacco: Former Types: Chew Quit date: 07/19/1994 Substance Use Topics Alcohol use: Not Currently Alcohol/week: 2.0 standard drinks Types: 2 Cans of beer per week Comment: stopped 05/14/2018 Drug use: No Medications Current Outpatient Medications Medication Sig Allopurinol 100 MG tablet Take 2 tablets by mouth daily. amLODIPine 5 MG tablet Take 1 tablet by mouth daily. aspirin 81 MG Chew Tab chewable tablet Chew 1 tablet daily. Last refill from our office. Medication can be purchased over the counter going forward. atorvastatin 20 MG tablet Take 1 tablet by mouth at bedtime. Further refills to be provided by PCP's office. faMOTIdine 20 MG tablet Take 1 tablet by mouth 2 times daily. gabapentin 100 MG capsule Take 4 capsules by mouth at bedtime. Take daily at bedtime for foot and ankle pain. Losartan 50 MG tablet take 1 tablet by mouth twice a day melatonin 3 MG tablet Take 1 tablet by mouth at bedtime as needed for Insomnia. Mycophenolate sodium (MYFORTIC) [address] Take 2 tablets by mouth every 12 hours. ondansetron (Zofran ODT) 4 MG Tab Dispersible tablet Dissolve 1 tablet on tongue every 6 hours as needed for nausea or vomiting. ondansetron 4 MG tablet Take 1 tablet by mouth every 8 hours as needed for Nausea / Vomiting. polyethylene glycol 17 g Pack packet Take 1 packet by mouth daily. Tacrolimus (PROGRAF) 0.5 MG capsule Take 1 capsule by mouth every 12 hours. Tamsulosin HCl 0.4 MG capsule Take 1 capsule by mouth daily. camphor-menthol 0.5-0.5 % Lotion Apply 1 Application topically as needed. Magnesium Oxide 500 MG tablet Take 2 tablets by mouth daily. oxyCODONE 5 MG tablet Take 1 tablet by mouth every 4 hours as needed for Severe Pain or Moderate Pain for up to 5 doses. Review of Systems GENERAL: Negative for any nausea, vomiting, fevers, chills, or weight loss. +fatigue NEUROLOGIC: Negative for any blurry vision, blind spots, double vision, facial asymmetry, dysphagia, dysarthria, hemiparesis, hemisensory deficits, vertigo, ataxia. EAR, NOSE, THROAT, NECK: Negative for any head trauma, neck trauma, neck stiffness, photophobia, phonophobia, sinusitis, rhinitis. CARDIAC: Negative for any chest pain, dyspnea on exertion, paroxysmal nocturnal dyspnea, peripheral edema. PULMONARY: Negative for any shortness of breath, wheezing, GASTROINTESTINAL: Negative for any abdominal pain, nausea, vomiting, bright red blood per rectum, melena. GENITOURINARY: Negative for any dysuria, hematuria, incontinence. INTEGUMENTARY: Negative for any rashes, cuts, insect bites. RHEUMATOLOGIC: Negative for any joint pains, photosensitive rashes, history of vasculitis or kidney problems. HEMATOLOGIC: Negative for any abnormal bruising, frequent infections or bleeding. Physical Exam Vitals: 01/16/23 0857 BP: 142/75 Pulse: 76 Temp: 97.3 F (36.3 C) Constitutional: Well developed, well nourished male in no acute distress. Oriented to person, place, and time. HEENT: Normocephalic, pupils equal and round, negative for any scleral icterus. Normal appearing oropharynx. Cardiovascular: Regular rate and rhythm, with a normal S1/S2, without any appreciable murmurs, rubs or gallops. Pulmonary: Normal breath sounds, without any appreciable crackles, wheezing or rhonchi. No increased work of breathing. Abdominal: Well healed chevron scar. Soft, nontender, nondistended with normal bowel sounds without any appreciable ascites. +incisional hernia which is easily reducible Extremities: No LE edema. Negative for any asterixis. Skin: Negative for any appreciable rashes. Negative for palmar erythema. Laboratory Evaluation I have reviewed his pertinent laboratory data in the computerized patient record. Lab Results Component Value Date SODIUM 144 12/29/2022 POTASSIUM 4.1 12/29/2022 CHLORIDE 109 12/29/2022 CO2 27.0 12/29/2022 BUN 13.0 12/29/2022 CREATSERUM 1.02 12/29/2022 Lab Results Component Value Date WBC 6.3 12/29/2022 HGB 15.1 12/29/2022 HCT 48.9 12/29/2022 PLATELET 225 12/29/2022 MCV 89.1 06/12/2022 Lab Results Component Value Date ALT 32 12/29/2022 AST 21 12/29/2022 GGT 24 12/29/2022 ALKPHOS 96 12/29/2022 BILITOTAL 1.1 12/29/2022 BILIDIRECT 0.3 12/29/2022 Explant Pathology Pathologic Diagnosis A. [place] liver, orthotopic liver transplant resection (1458 gram): Liver with cirrhosis, compatible with clinical history of alcohol cirrhosis No evidence of tumor Gallbladder with chronic cholecystitis Special and immunohistochemical stains: Reticulin shows no thickening of the liver plates Ck19 highlights bile duct CK7 highlights bile duct Cd34 shows periportal sinusoidal stain pattern, compatible with cirrhosis Glypican 3 negative B. Donor gallbladder, excision: Normal gallbladder C. Donor liver, reperfusion, biopsy: Liver with mild ischemic/reperfusion injury Mild macrovesicular steatosis, 10% Trichrome stain shows no increased fibrosis Imaging CT A/P with IV contrast (06/27/2022): 1. Both [place] kidneys are atrophic with improvement in right-sided hydronephrosis since May 15, 2022. 2. 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 No hydronephrosis. No discrete perinephric collection. 3. Partially imaged postsurgical changes related to prior liver transplant. 4. The bladder is decompressed, limiting evaluation. 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 HLA mismatch was 1A, 2B, 1DR. Prior to transplant, the cPRA of the recipient was 0%. Donor KDPI 9%. His post transplant course was complicated by delayed graft function and he required iHD until 04/26/2020. He also had c.dif colitis in 04/2022. Since his last clinic appointment, he was admitted with an FAYE due to obstructing stone in the transplant ureter and a nephrostomy tube was placed. He has since followed up with Nephrology and nephrostomy tube was removed. He maintains excellent graft function. IS: Tacrolimus 0.5mg BID (trough 5.3; 12/29/2022) Mycophenolate 360 mg BID Plan - IS as noted above. Continue current doses - Reduce laboratory monitoring to every 2months. - Continue follow up with Transplant Nephrology and Urology due to recent FAYE/obstructive stone. - I offered him a referral to surgery for repair of his incisional hernia. He would like to wait for now but we did discuss symptoms that would prompt more urgent evaluation. - Health maintenance: annual Derm (follow), lipids every 6 months, annual spot prot/cr ratio, DEXA every 2 years, TSH, vitamin D which can be arranged through his primary care physicians. - Last colonoscopy 2018, repeat due 3-5 years given inadequate prep. He prefers to complete this locally and will discuss repeat exam later this year. - Hypertension: Currently on Losartan but reports high values. Encouraged him to follow with his PCP. - We discussed exercise and dietary changes given increased weight gain after OLT. - Follow up in 1 year. I encouraged him to follow with his PCP in the meantime for other symptoms (fatigue, frequent nighttime urination, etc). Daisha Max DO Meter Readers Supervisor Gastroenterology, Hepatology and Nutrition [facility] Pager: [phone] Images from the original note were not included. 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 Steam Press Operator: Anayeli Burt Date of Liver Transplant: 04/13/2020 (Kidney), 04/13/2020 (Liver) 2 years, 8 months post Liver/Kidney Transplant Primary Disease: Hypertensive Nephrosclerosis Transplant Supervisor Of Guidance And Testing: Steve Latham Primary Care physician: Zuly Bruno combined liver/kidney transplant from a Donation after Circulatory donor on 04/13/20 due to ETOH cirrhosis and Hypertensive Nephrosclerosis. 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 Prior to transplant, the cPRA of the recipient was 0%. Donor KDPI 9%. MONITORING: COMMENTS: On DGF Protocol? Discontinued Dialysis discontinued by Dr. Latham on 04/26/20 due to recovered graft function HLA Match: A1 B2 DR1 Living Donor? no Increased Risk donor? no EBV IgG Donor / Recipient D+ / R+ CMV IgG Donor / Recipient: D- / R- Low risk - no prophylaxis or surveillance indicated On Valcyte or frequent labs? no Ureteral Stent? Was removed on 05/23 Removed / Removal Sched? yes removed on May 23. Hepatitis C+/KUMAR- donor? no Hepatitis C+/KUMAR+ donor? no ======== IMMUNOSUPPRESSION AND LABS: Current Immunosuppressive Medication(s) Immunosuppressive Agents Mycophenolate sodium (MYFORTIC) [address] Take 2 tablets by mouth every 12 hours. Tacrolimus (PROGRAF) 0.5 MG capsule Take 1 capsule by mouth every 12 hours. I/S levels: No results found for: CYCLOSPORIN, CYCLOSPORIN2, [id number], CYCLORAND No components found for: CYCLOSPORINE, 2HR POST No results found for: SIROLIMUS, RAPAMUNE, RAPAMYCIN No results found for: EVEROLIMUS, EVRLMSTRGH, EVERTRGHMANE Lab Results Component Value Date TACROLIMUS 4.1 05/16/2022 TACROLIMUS 6.4 05/14/2020 TACROLIMUS 4.8 05/12/2020 TACROTRGHMAN 5.6 12/29/2022 TACROTRGHMAN 4.9 11/04/2022 TACROTRGHMAN 4.6 09/15/2022 CHEMISTRY: Lab Results Component Value Date CREATSERUM 1.02 12/29/2022 CREATSERUM 1.07 11/04/2022 CREATSERUM 1.01 09/15/2022 HEMATOLOGY: Lab Results Component Value Date WBC 6.3 12/29/2022 WBC 5.7 11/04/2022 WBC 6.6 09/15/2022 Lab Results Component Value Date HGB 15.1 12/29/2022 HGB 15.6 11/04/2022 HGB 16.0 09/15/2022 IMMUNOLOGY: Lab Results Component Value Date CMVPCR <50 05/12/2020 EBVBYPCR <1,000 05/12/2020 BKVIRALP <500 06/12/2022 BKVIRALP <500 03/15/2021 BKVIRALP <500 05/12/2020 CURRENT MEDICATIONS: Allopurinol, Atorvastatin, Gabapentin, Losartan, Magnesium Oxide, Melatonin, Mycophenolate sodium, Ondansetron, Polyethylene glycol, Tacrolimus, Tamsulosin HCl, amLODIPine, aspirin, camphor-menthol, faMOTIdine, and oxyCODONE None Specified Change in lab frequency / new order today: No Once a month Labs needed in clinic today? No COORDINATOR NOTES: LFT's stable Cr stable 1.02 Last tac level 5.6 Images from the original note were not included. Nursing Assessment In Clinic (see Clinic Prep Sheet for additional information) Patient is accompanied to clinic today by: Self Did patient require a wheelchair or medical transport for appointment: no Any changes in address or contact information: no Insurance on file correct: yes Currently employed: no VITALS BP Readings from Last 3 Encounters: 01/16/23 142/75 09/10/22 129/83 07/07/22 141/76 Pulse Readings from Last 3 Encounters: 01/16/23 76 09/10/22 64 07/07/22 82 Wt Readings from Last 6 Encounters: 01/16/23 97.5 kg (214 lb 14.4 oz) 09/10/22 97.5 kg (215 lb) 06/27/22 99.2 kg (218 lb 9.6 oz) 06/27/22 99.8 kg (220 lb) 06/12/22 100.2 kg (220 lb 14.4 oz) 05/19/22 103.9 kg (229 lb 1.6 oz) Body mass index is 33.66 kg/m . Lab Results Component Value Date GLUCOSE 117 12/29/2022 Lab Results Component Value Date HGBA1C 6.0 (H) 06/12/2022 IMMUNOSUPPRESSION Current Immunosuppressive Medication(s) Immunosuppressive Agents Mycophenolate sodium (MYFORTIC) [address] Take 2 tablets by mouth every 12 hours. Tacrolimus (PROGRAF) 0.5 MG capsule Take 1 capsule by mouth every 12 hours. ADDITIONAL INFORMATION: None Specified [id number] [place] [address] - [address] [facility] [address] [facility] [id number] [facility] [address], [address] [facility] [address] [id number] [place] [address] [address] [facility] [address] [facility] [address] [facility] Jakob [address], [address] [facility] [address] ROS and SCREEN: Chest Pain: negative Cough: negative SOB: negative Abd Pain: negative Nausea: negative Vomiting: negative Diarrhea: negative Constipation: negative Dysuria: negative Edema: negative Tremors: negative Headaches: negative Wound issues: negative Alcohol consumption: no Cigarette smoking, smokeless tobacco or vaping/e-cigarette use: no Marijuana (any form), CBD oil or street drug use: no QUESTIONS OR CONCERNS TO ADDRESS WITH PHYSICIAN: documented in this encounter [facility] 01-16-2023 Instructions José Miguel Garnica RN - 01/16/2023 9:40 AM EST - Labs Every 2 months - Discuss night time urination with your PCP - Schedule Colonoscopy through PCP - Follow up in 1 year documented in this encounter [facility] 09-10-2022 History of Present illness Narrative UROLOGY CLINIC NOTE Reason for Appointment: BPH with LUTS HPI: Patient is a 52 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 Nephrostomy tube placed 05/17/22 due to FAYE. Last Cr down to 1.03 on 07/03. Unclear origin of FAYE and possible obstruction. Concern for possible renal vs ureteral stone when admitted to the hospital Nephrostogram on 05/20/22 showed a patent transplant ureter down to the bladder without filling defects. CT scans are difficult to follow the entire length of the transplant ureter. No definitive stones seen. Patient did well with clamping trial of his nephrostomy tube without recurrent hydronephrosis. Repeat nephrostogram on 07/07 without filling defects and no hydronephrosis. Some reflux up the [place] right ureter but good drainage of both transplant and [place] ureter to the bladder. Nephrostomy tube was removed without issue. At last appointment, patient with some sensation of incomplete bladder emptying and occasional sensation in his right flank. PVR was 33cc. Since his last appointment, patient has been doing well. He has had improved voiding symptoms. Denies dysuria, frequency, urgency, gross hematuria, sensation of incomplete bladder emptying, weak stream, intermittent stream and incontinence. CT on 06/27 with ~50cc prostate. PSA 0.36 in September 2018. Past Medical History: He has a past medical history of Acute renal failure, CAD (coronary artery disease), Cirrhosis, Dialysis patient, End stage renal disease (06/01/2018), Essential hypertension, benign, Hepatic encephalopathy, History of blood transfusion, and Liver cirrhosis. Past Surgical History: He has a past surgical history that includes other surgical (04/2018); ankle surgery (Right); angioplasty of brachiocephalic trunk or branch with transluminal balloon percutaneous for avf or gra; extraction tooth ; liver transplant, orthotopic (N/A, 04/12/2020); kidney transplant w/o [place] nephrectomy (N/A, 04/12/2020); and placement nephrostomy catheter percutaneous w/ image guidance (05/17/2022). Medications: He has a current medication list which includes the following prescription(s): allopurinol, amlodipine, aspirin, atorvastatin, camphor-menthol, famotidine, gabapentin, losartan, magnesium oxide, melatonin, mycophenolate sodium, ondansetron, ondansetron, oxycodone, polyethylene glycol, tacrolimus, and tamsulosin hcl. Allergies: He is allergic to shellfish-derived products. Social History He reports that he quit smoking about 4 years ago. His smoking use included cigarettes. He started smoking about 34 years ago. He has a 20.00 pack-year smoking history. He quit smokeless tobacco use about 28 years ago. His smokeless tobacco use included chew. He reports that he does not currently use alcohol after a past usage of about 2.0 standard drinks per week. He reports that he does not use drugs. Family History: He family history includes Breast Cancer in his paternal aunt; Diabetes in his brother, father, maternal aunt, maternal grandmother, and mother; Heart Disease - Other in his brother, father, maternal grandfather, maternal grandmother, mother, paternal grandmother, and sister; Hypertension in his brother, father, maternal grandfather, maternal grandmother, mother, and paternal aunt; Lung Cancer in his maternal grandfather and maternal grandmother; Stroke in his father and mother. Review of Systems Constitutional: Negative for fever, chills, weight loss, weight gain and malaise/fatigue. Eyes: Negative for blurred vision and eye redness. Cardiovascular: Negative for chest painRespiratory: negative shortness of breath Gastrointestinal: Negative for , diarrhea, constipation Genitourinary: See LITTLE SHELL TRIBE Neurological: Negative for headaches. Lymph/Heme: Negative for easily bruises / bleeds and lymph node swelling. Physical Exam Smoking Status Former Nursing note and vitals reviewed. Constitutional: Oriented, well-developed, well-nourished, and in no distress. HEENT: Normocephalic. Atraumatic. PERRL Cardiovascular: RRR Pulmonary/Chest: Respirations are even and non-labored Abdominal: Soft. No distension. No tenderness. No masses. No rebound and no guarding. No CVA tenderness. Neurological: Alert and oriented x 3. Cranial Nerves grossly intact. Normal gait. Extremities: FRANKIE x 4, Normal strength. No edema. Skin: Gonzales, warm, and dry. There are no rashes noted. 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 Previously placed nephrostomy tube in transplant kidney with concern for stone or obstruction. Repeat nephrostogram on 07/07 without filling defects and no hydronephrosis. Some reflux up the [place] right ureter but good drainage of both transplant and [place] ureter to the bladder. Nephrostomy tube was removed without issue. Last Cr on 07/03 stable at 1.03. Patient voiding without issue now and has improved since his last appointment. PVR today was 26cc. CT on 06/27 with ~50cc prostate. PSA 0.36 in September 2018. We discussed additional medical therapy and prostate ablative surgeries including risks and benefits. Patient would like to continue current treatment with Flomax without additional intervention. --repeat PSA --continue Flomax 0.4mg qhs --RTC 6 months (telemedicine) Patient to call with any additional questions or concerns. Ryan Yepez MD 09/10/22 documented in this encounter [facility] 07-07-2022 History of Present illness Narrative Patient is here today for a right (side) nephrostogram. The patient arrived and was escorted to procedure room where the procedure was explained and the patient agreed to continue. Medications and allergies were verified with the patient and are consistent with the EMR. The patient was given Bactrim prior to the procedure. Consent was obtained by Dr. Yepez. The patient was placed in supine position upon the table and was prepped and draped in simple fashion. Time-out per Dr. Yepez. The nephrostomy tube was removed. The patient was assisted off the table and escorted to administrative receptionist where they made a follow up. Associated Order(s): NEPHROSTOMY TUBE REMOVAL Post-Procedure Diagnose(s): Other hydronephrosis NEPHROSTOMY TUBE REMOVAL Date/Time: 07/07/2022 2:10 PM Performed by: Ryan Yepez MD Authorized by: Ryan Yepez MD Nephrostomy tube removal: Right Pre-procedure details: The nephrostomy tube insertion site(s) was/were inspected and found to be clean/dry/intact without evidence of infection, leakage or discharge. The patient was placed in the left lateral decubitus position on the exam table and the site(s) were cleansed with Chloraprep in preparation for nephrostomy tube removal. Procedure: Fluoroscopic guidance was utilized for this procedure. The anchor sutures were cut and removed from the skin entirely. The nephrostomy tube locking mechanism(s) were released. Steady tension was applied to the tube until it was removed completely and with minimal resistance or pain. The insertion site(s) were observed with no drainage noted after tube removal; significant hemorrhage was not noted. Post-procedure details: Patient condition: tolerated well, no immediate complications. The sites were dressed with overlying gauze and tape. The patient was counseled on proper wound care following removal of nephrostomy tube(s). Additional dressing supplies were issued to the patient. Assisting physician present for entire procedure: yes ASSESSMENT/PLAN Patient is a 52 yo male with a DDRT to the Q in 2019. Nephrostomy tube placed 05/17/22 due to FAYE. Last Cr down to 1.2. Unclear origin of FAYE and possible obstruction. Concern for possible renal vs ureteral stone when admitted to the hospital Nephrostogram on 05/20/22 showed a patent transplant ureter down to the bladder without filling defects. CT scans are difficult to follow the entire length of the transplant ureter. No definitive stones seen. Nephrostomy tube was clamped on 06/27. Patient doing well since clamping and Cr on 07/03 stable at 1.03. Nephrostogram repeated today. Appears to have transplant ureter with anastomosis to [place] right ureter. Nephrostogram without filling defects and no hydronephrosis. Some reflux up the [place] right ureter but good drainage of both transplant and [place] ureter to the bladder. Nephrostomy tube was removed without issue. Patient does have some sensation of incomplete bladder emptying and occasional sensation in his right flank. PVR today was 33cc. Will re-evaluate urinary symptoms at next appointment. --continue Flomax --RTC in one month flow flow/PVR/IPSS Patient to call with any additional questions or concerns. Ryan Yepez MD 07/07/22 documented in this encounter [facility] 06-27-2022 History of Present illness Narrative UROLOGY CLINIC NOTE Reason for Appointment: possible transplant ureteral obstruction HPI: Patient is a 52 yo male with PMH that includes ESRD s/p DDRT in March 2020, CAD, cirrhosis and HTN. He was evaluated as an inpatient on 05/15 for flank and FAYE. Urine lytes initially most consistent with intrinsic causes of FAYE. However, patient became severely oliguric and Cr jumped up to 5.23 (baseline 1.1-1.2). CT from OSH was difficult to determine if there was truly an obstructive ureteral or even a renal stone. Nephrostomy tube placed 05/17 due to FAYE and flank pain. Unclear origin of FAYE and possible obstruction. Concern for possible renal vs ureteral stone when admitted to the hospital. Nephrostogram on 05/20 showed a patent transplant ureter down to the bladder without filling defects. Previous CT scans are difficult to follow the entire length of the transplant ureter. Nephrostomy tube has clogged twice during the past month that required flushing but then drainage resumed without issue. Currently denies dysuria, frequency, urgency and gross hematuria. Denies dysuria, frequency, urgency and gross hematuria. CT lab scheduled for 06/27 pending. Recent labs showed WBC count 7.68, Hgb 13.9 and Cr 1.2 (at baseline). Urine culture on 06/12 with mixed skin shimon. No known personal hx of stones. No know family hx of stones. Denies fever, chills, N/V, chest pain and SOB. Smoking hx: none Anticoagulation: baby ASA Past Medical History: He has a past medical history of Acute renal failure, CAD (coronary artery disease), Cirrhosis, Dialysis patient, End stage renal disease (06/01/2018), Essential hypertension, benign, Hepatic encephalopathy, History of blood transfusion, and Liver cirrhosis. Past Surgical History: He has a past surgical history that includes other surgical (04/2018); ankle surgery (Right); angioplasty of brachiocephalic trunk or branch with transluminal balloon percutaneous for avf or gra; extraction tooth ; liver transplant, orthotopic (N/A, 04/12/2020); kidney transplant w/o [place] nephrectomy (N/A, 04/12/2020); and placement nephrostomy catheter percutaneous w/ image guidance (05/17/2022). Medications: He has a current medication list which includes the following prescription(s): allopurinol, amlodipine, aspirin, atorvastatin, camphor-menthol, famotidine, gabapentin, losartan, melatonin, mycophenolate sodium, ondansetron, ondansetron, polyethylene glycol, tacrolimus, tamsulosin hcl, magnesium oxide, and oxycodone. Allergies: He is allergic to shellfish-derived products. Social History He reports that he quit smoking about 4 years ago. His smoking use included cigarettes. He started smoking about 33 years ago. He has a 20.00 pack-year smoking history. He quit smokeless tobacco use about 27 years ago. His smokeless tobacco use included chew. He reports previous alcohol use of about 2.0 standard drinks of alcohol per week. He reports that he does not use drugs. Family History: He family history includes Breast Cancer in his paternal aunt; Diabetes in his brother, father, maternal aunt, maternal grandmother, and mother; Heart Disease - Other in his brother, father, maternal grandfather, maternal grandmother, mother, paternal grandmother, and sister; Hypertension in his brother, father, maternal grandfather, maternal grandmother, mother, and paternal aunt; Lung Cancer in his maternal grandfather and maternal grandmother; Stroke in his father and mother. Review of Systems Constitutional: Negative for fever, chills, weight loss, weight gain and malaise/fatigue. Eyes: Negative for blurred vision and eye redness. Cardiovascular: Negative for chest painRespiratory: negative shortness of breath Gastrointestinal: Negative for , diarrhea, constipation Genitourinary: See LITTLE SHELL TRIBE Neurological: Negative for headaches. Lymph/Heme: Negative for easily bruises / bleeds and lymph node swelling. Physical Exam BP 121/78 (BP Location: Right arm, BP Position: Sitting) Pulse 77 Temp 98.6 F (37 C) (Temporal) Ht 1.702 m (5' 7 ) Wt 99.2 kg (218 lb 9.6 oz) SpO2 95% BMI 34.24 kg/m Smoking Status Former Smoker Nursing note and vitals reviewed. Constitutional: Oriented, well-developed, well-nourished, and in no distress. HEENT: Normocephalic. Atraumatic. PERRL Cardiovascular: RRR Pulmonary/Chest: Respirations are even and non-labored Abdominal: Soft. No distension. No tenderness. No masses. No rebound and no guarding. No CVA tenderness. Nephrostomy tube with clear, yellow urine Neurological: Alert and oriented x 3. Cranial Nerves grossly intact. Normal gait. Extremities: FRANKIE x 4, Normal strength. No edema. Skin: Gonzales, warm, and dry. There are no rashes noted. Diagnostic Tests Lab Results Component Value Date WBC 7.68 06/12/2022 HGB 13.9 06/12/2022 HCT 43.2 06/12/2022 PLATELET 269 06/12/2022 MCV 89.1 06/12/2022 Lab Results Component Value Date SODIUM 141 06/12/2022 POTASSIUM 3.8 06/12/2022 CHLORIDE 106 06/12/2022 CO2 25 06/12/2022 BUN 18 06/12/2022 CREATSERUM 1.26 06/12/2022 PH (no units) Date Value 04/13/2020 7.408 pH (no units) Date Value 04/13/[address] abd/pelvis 06/27/22 PENDING Assessment and Plan Patient is a 52 yo male with a DDRT to the [facility] in 2019. Nephrostomy tube placed 05/17 due to FAYE. Last Cr down to 1.2. Unclear origin of FAYE and possible obstruction. Concern for possible renal vs ureteral stone when admitted to the hospital. Nephrostogram on 05/20 showed a patent transplant ureter down to the bladder without filling defects. CT scans are difficult to follow the entire length of the transplant ureter. No definitive stone that I can see. We discussed his transplant kidney and the the current nephrostomy tube. Will plan for a clamping, and recheck Cr in a few days. If no pain and Cr stable, will plan for nephrostomy removal in about 1 week. Will f/u on ordered CT scan to see if any definitive stones present. Patient instructed on how to unclamp nephrostomy tube if having pain or if Cr rising on next check. Patient also instructed on how to flush nephrostomy tube if needed. --f/u CT scan -nephrostomy tube clamped today. Patient taught how to unclamp the nephrostomy tube as well as how to flush it if needed --check Cr next week. Pending CT and if Cr stable will remove nephrostomy tube in about a week Patient to call with any additional questions or concerns. Ryan Yepez MD 06/27/[address] yepez patient needed nephrostomy tube cap off, teach him how to flush it and give him one new bag to take home. 5ml of 0.9 NS flushed without difficulty. Nephrostomy tube capped off. Supplies given to patient. Patient voice understanding the instructions on how to flush, how to cap off and how to place a new bag if needed. documented in this encounter [facility] 06-27-2022 History and physical note Patient was evaluated in clinic as a nurse visit. Please refer to Rena Brewster's note. [facility] Work Phone: 06-27-2022 History and physical note Patient was evaluated in clinic as a nurse visit. Please refer to Rena Brewster's note. documented in this encounter [facility] 06-27-2022 History of Present illness Narrative TEACHING REGARDING TX NEPH COMPLETED-NEPH TUBE SITE DRY AND INTACT-CLEAR YELLOW URINE IN THE BAG-INSTRUCTED ABOUT FLUSHING, BAG CHANGING ETC. NUMEROUS QUESTIONS ASKED AND ANSWERED-VERBALIZED UNDERSTANDING documented in this encounter [facility] 06-18-2022 Note EXAMINATION: CT ABD/ PELVIS WO CON HISTORY: UNSPECIFIED COMPLICATION OF PROCEDURE, INITIAL ENCOUNTER ; nephrostomy tube not draining COMPARISON: CT abdomen pelvis 05/15/2022 TECHNIQUE: Axial, Coronal, and Sagittal images were created without IV contrast. Dose reduction techniques were achieved by using automated exposure control and/or adjustment of mA and/or kV according to patient size and/or use of iterative reconstruction technique. FINDINGS: LUNG BASES: No visible pulmonary or pleural disease. LIVER: No enlargement, atrophy, suspicious density, or significant focal lesion. BILIARY: Cholecystectomy. PANCREAS: No lesion, fluid collection, or abnormal duct dilatation. SPLEEN: No enlargement or focal lesion. ADRENALS: No mass or enlargement. KIDNEYS: Marked atrophy of [place] kidneys. Transplant right pelvic kidney with percutaneous nephrostomy tube entering through the anterior right abdominal wall. No significant hydronephrosis or abnormal dilation of the ureter. BOWEL/MESENTERY: No visible mass, obstruction, or bowel wall thickening. AORTA/VASCULAR: Moderate atherosclerotic disease. No aneurysm. RETROPERITONEUM: No mass or adenopathy. LYMPH NODES: No adenopathy. URINARY BLADDER: Mild circumferential wall thickening of the mildly distended bladder. Small amount of free air within bladder likely introduced by nephrostomy tube. PELVIC ORGANS: No visible mass. Pelvic organs appropriate for patient age. ABDOMINAL WALL: Lower right anterior abdominal wall percutaneous nephrostomy tube. Small fat filled umbilical hernia without strangulation. BONES: No bony lesion or fracture. OTHER: Negative. IMPRESSION: 1. Anterior right lower quadrant nephrostomy tube positioned within the transplant kidney which no longer demonstrates hydronephrosis or surrounding inflammatory changes. Significantly improved appearance compared to prior study. Electronically authenticated by: MÓNICA JIMENEZ Date: 2022-06-18 13:53 [facility] 06-12-2022 Instructions Anayeli Christianson RN - 06/12/2022 3:21 PM EDT Do not take apart/disrupt nephrostomy tube system. Call Interventional Radiology and/or on-call transplant nurse [phone] for instruction if need to flush (clot or decreased flow). Take cipro 500mg, one tablet, twice per day for 14 days documented in this encounter [facility] 06-12-2022 History of Present illness Narrative Images from the original note were not included. 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 Prior to transplant, the cPRA of the recipient was 0%. Donor KDPI 9%. MONITORING: COMMENTS: On DGF Protocol? Discontinued Dialysis discontinued by Dr. Latham on 04/26/20 due to recovered graft function HLA Match: A1 B2 DR1 Living Donor? no Increased Risk donor? no EBV IgG Donor / Recipient D+ / R+ CMV IgG Donor / Recipient: D- / R- Low risk - no prophylaxis or surveillance indicated On Valcyte or frequent labs? no Ureteral Stent? Was removed on 05/23 Removed / Removal Sched? yes removed on May 23. Hepatitis C+/KUMAR- donor? no Hepatitis C+/KUMAR+ donor? no ======== IMMUNOSUPPRESSION AND LABS: Current Immunosuppressive Medication(s) Immunosuppressive Agents mycophenolate sodium (MYFORTIC) [address] Take 2 tablets by mouth every 12 hours. tacrolimus (PROGRAF) 0.5 MG capsule Take 2 capsules by mouth every 12 hours. I/S levels: Lab Results Component Value Date TACROLIMUS 4.1 05/16/2022 TACROLIMUS 6.4 05/14/2020 TACROLIMUS 4.8 05/12/2020 TACROTRGHMAN 9.8 06/06/2022 TACROTRGHMAN 5.9 03/03/2022 TACROTRGHMAN 4.2 12/30/2021 CHEMISTRY: Lab Results Component Value Date CREATSERUM 1.2 06/06/2022 CREATSERUM 1.10 05/20/2022 CREATSERUM 1.39 (H) 05/19/2022 HEMATOLOGY: Lab Results Component Value Date WBC 7.5 06/06/2022 WBC 6.31 05/20/2022 WBC 6.81 05/19/2022 Lab Results Component Value Date HGB 14.4 06/06/2022 HGB 12.3 (L) 05/20/2022 HGB 12.0 (L) 05/19/2022 IMMUNOLOGY: Lab Results Component Value Date CMVPCR <50 05/12/2020 EBVBYPCR <1,000 05/12/2020 BKVIRALP <500 03/15/2021 BKVIRALP <500 05/12/2020 CURRENT MEDICATIONS: Magnesium Oxide, Tamsulosin HCl, allopurinol, amLODIPine, aspirin, atorvastatin, camphor-menthol, faMOTIdine, gabapentin, losartan, melatonin, mycophenolate sodium, ondansetron, oxyCODONE, polyethylene glycol, and tacrolimus None Specified Change in lab frequency / new order today: No- Labs needed in clinic today? COORDINATOR NOTES: DC 05/20/2022 Problem list: severe obstructive FAYE of transplanted kidney, improving after placement of nephrostomy tube renal and liver tx recipient 2019 nephrolithiasis in renal graft at level of graft ureteropelvic junction hx of CAD Plan: Hospitalized with acute abdominal and flank pain and elevated creatinine. Once the outside hospital ED where a Myers was placed without significant urine output. CT imaging there showed calcification in the transplant kidney with some hydronephrosis. He was transferred here and started on ceftriaxone empirically for infection. His creatinine mauro dramatically to 8.0 on 05/17. He underwent percutaneous nephrostomy tube placement of the transplant kidney with significant urine output resulting and his renal function improved quickly after this. He did pass a pea sized stone on 05/18 and this was sent to the lab for analysis. Results are pending at discharge. 2 urine cultures did not grow any bacteria, and on discussion with the outside hospital ED, the urinalysis was not consistent with infection. He received 5 doses of ceftriaxone but we did not continue antibiotics at discharge due to lack of evidence of infection. He underwent a nephrostogram on day of discharge. he will follow up with Urology and Interventional Radiology. He was educated on nephrostomy tube care and discharge with supplemental magnesium. Images from the original note were not included. Need labs today: 05/15/22-05/20/22 - Hospitalized 05/17/22 -elevated Cr, RLQ and flank pain - Non-obstructing kidney stone in renal graft at [facility]. Percutaneous Neph Tube placed Images from the original note were not included. Nursing Assessment In Clinic (see Clinic Prep Sheet for additional information) Patient is accompanied to clinic today by: self Did patient require a wheelchair or medical transport for appointment: no Did front man confirm current address and insurance information is correct: yes VITALS BP Readings from Last 3 Encounters: 06/12/22 133/66 06/04/22 (P) 156/79 05/20/22 145/64 Pulse Readings from Last 3 Encounters: 06/12/22 63 06/04/22 (P) 72 05/20/22 55 Wt Readings from Last 6 Encounters: 06/12/22 100.2 kg (220 lb 14.4 oz) 05/19/22 103.9 kg (229 lb 1.6 oz) 07/26/21 92.3 kg (203 lb 6.4 oz) 03/15/21 89.5 kg (197 lb 6.4 oz) 09/06/20 87.5 kg (193 lb) 06/06/20 77.9 kg (171 lb 12.8 oz) Body mass index is 34.59 kg/m . Lab Results Component Value Date GLUCOSE 112 06/06/2022 Lab Results Component Value Date HGBA1C 5.6 08/16/2021 IMMUNOSUPPRESSION Current Immunosuppressive Medication(s) Immunosuppressive Agents mycophenolate sodium (MYFORTIC) [address] Take 2 tablets by mouth every 12 hours. tacrolimus (PROGRAF) 0.5 MG capsule Take 2 capsules by mouth every 12 hours. PREFERRED LAB AND PHARMACY: None Specified [facility] [place] [address] - [address] [facility] [address] [facility] [id number] [facility] [address] [facility] [address] [id number] [place] [address] [address] [facility] [address] [facility] [address] [facility] [address], [place] [address] [facility] [address] ROS and SCREEN: Chest Pain: negative Cough: negative SOB: negative Abd Pain: negative Nausea: positive Vomiting: negative Diarrhea: negative Constipation: negative Dysuria: positive Edema: negative Tremors: negative Headaches: negative Wound issues: negative Pt has neph tube w clear yellow urine. States he had a small clot that he dislodged QUESTIONS OR CONCERNS TO ADDRESS WITH PHYSICIAN: I saw George Styles at the [facility] on 06/12/2022. Patient is a 52 y.o. 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 His post-transplant course was noteworthy for good allograft function. He reports no interval health issues such as hospitalizations, infections or ED visits. He does not report any active physical symptoms or health issues today. Interval history: Hospitalized at [facility] with [facility]AYE. Found to have an obstructing stone in the transplant ureter. Nephrostomy tube placed and discharged with Urology OP follow-up. He complains of pain in the nephrostomy site and noticed the urine color as more cloudy. His also thinks his urine output slowed. Review of Systems done by the RN; see separate note Current Outpatient Medications Medication Sig allopurinol 100 MG tablet take 2 tablets by mouth once daily amLODIPine 5 MG tablet Take 5 mg by mouth daily. aspirin 81 MG Chew Tab chewable tablet Chew 1 tablet daily. Last refill from our office. Medication can be purchased over the counter going forward. atorvastatin 20 MG tablet Take 1 tablet by mouth at bedtime. Further refills to be provided by PCP's office. camphor-menthol 0.5-0.5 % Lotion Apply 1 Application topically as needed. faMOTIdine 20 MG tablet Take 20 mg by mouth 2 times daily. gabapentin 100 MG capsule Take 400 mg by mouth at bedtime. Take daily at bedtime for foot and ankle pain. losartan 50 MG tablet take 1 tablet by mouth twice a day melatonin 3 MG tablet Take 3 mg by mouth at bedtime as needed for Insomnia. mycophenolate sodium (MYFORTIC) [address] Take 2 tablets by mouth every 12 hours. ondansetron (Zofran ODT) 4 MG Tab Dispersible tablet Dissolve 1 tablet on tongue every 6 hours as needed for nausea or vomiting. ondansetron 4 MG tablet Take 4 mg by mouth every 8 hours as needed for Nausea / Vomiting. polyethylene glycol 17 g Pack packet Take 17 g by mouth daily. tacrolimus (PROGRAF) 0.5 MG capsule Take 2 capsules by mouth every 12 hours. Tamsulosin HCl 0.4 MG capsule Take 1 capsule by mouth daily. ciprofloxacin (Cipro) 500 MG tablet Take 1 tablet by mouth 2 times daily for 14 days. Magnesium Oxide 500 MG tablet Take 2 tablets by mouth daily. (Patient not taking: Reported on 06/12/2022) oxyCODONE 5 MG tablet Take 1 tablet by mouth every 4 hours as needed for Severe Pain or Moderate Pain for up to 5 doses. Past Medical History: Past Medical History: Diagnosis Date Acute renal failure CAD (coronary artery disease) Cirrhosis Dialysis patient T, Th, Sa- Started 06/01/2018 End stage renal disease 06/01/2018 Essential hypertension, benign Hepatic encephalopathy History of blood transfusion Liver cirrhosis Past Surgical History: Past Surgical History: Procedure Laterality Date PLACEMENT NEPHROSTOMY CATHETER PERCUTANEOUS W/ IMAGE GUIDANCE 05/17/2022 Surgeon: Enzo Heart DO; Location: [facility] INTERVENTIONAL RADIOLOGY (VIR) LIVER TRANSPLANT, ORTHOTOPIC N/A 04/12/2020 Laterality: N/A; Surgeon: LU Palma; Location: [facility] MAIN OR KIDNEY TRANSPLANT W/O [place] NEPHRECTOMY N/A 04/12/2020 Laterality: N/A; Surgeon: LU Palma; Location: [facility] MAIN OR OTHER SURGICAL 04/2018 Right chest dialysis cather- ANGIOPLASTY OF BRACHIOCEPHALIC TRUNK OR BRANCH WITH TRANSLUMINAL BALLOON PERCUTANEOUS FOR AVF OR GRA ANKLE SURGERY Right plate in ankle EXTRACTION TOOTH Family History: family history includes Breast Cancer in his paternal aunt; Diabetes in his brother, father, maternal aunt, maternal grandmother, and mother; Heart Disease - Other in his brother, father, maternal grandfather, maternal grandmother, mother, paternal grandmother, and sister; Hypertension in his brother, father, maternal grandfather, maternal grandmother, mother, and paternal aunt; Lung Cancer in his maternal grandfather and maternal grandmother; Stroke in his father and mother. Social History: reports that he quit smoking about 4 years ago. His smoking use included cigarettes. He started smoking about 33 years ago. He has a 20.00 pack-year smoking history. He quit smokeless tobacco use about 27 years ago. His smokeless tobacco use included chew. He reports previous alcohol use of about 2.0 standard drinks of alcohol per week. He reports that he does not use drugs. Physical Exam: Blood pressure 133/66, pulse 63, temperature 97 F (36.1 C), temperature source Temporal, weight 100.2 kg (220 lb 14.4 oz). Constitutional: Well developed, well nourished, in no physical distress. HEENT: PERRL, no scleral icterus, moist pharynx Neck: Supple, no JVD, no carotid bruits Lungs: Clear to auscultation bilaterally, no labored breathing, no W/R/R Cardiovascular: S1 & S2 with regular rhythm and normal rate, no pericardial rub Abdominal: soft, NTTTP, ND, NABS; Nephrostomy tube noted Extremities: No edema, no cyanosis or clubbing, equal distal pulses Neurological: AA/Ox3, moves all four extremities Skin: No rashes or bruises : No CVA tenderness to palpation Laboratory Findings: WBC Count Date Value Ref Range Status 06/12/2022 7.68 3.73 - 10.10 K/uL Final Hemoglobin Date Value Ref Range Status 06/12/2022 13.9 13.4 - 16.8 g/dL Final Hematocrit Date Value Ref Range Status 06/12/2022 43.2 39.6 - 48.8 % Final Platelet Count Date Value Ref Range Status 06/12/2022 269 146 - 337 K/uL Final Sodium Date Value Ref Range Status 06/12/2022 141 135 - 145 mmol/L Final Chloride Date Value Ref Range Status 06/12/2022 106 98 - 108 mmol/L Final BUN Date Value Ref Range Status 06/12/2022 18 7 - 25 mg/dL Final Potassium Date Value Ref Range Status 06/12/2022 3.8 3.5 - 5.0 mmol/L Final HCO3 Date Value Ref Range Status 04/13/2020 28.6 (H) 22.0 - 26.0 mmol/L Final Creatinine Date Value Ref Range Status 06/12/2022 1.26 0.70 - 1.30 mg/dL Final Glucose Date Value Ref Range Status 06/12/2022 83 70 - 99 mg/dL Final PT Date Value Ref Range Status 05/18/2022 14.4 (H) 11.9 - 14.2 sec Final PTT Date Value Ref Range Status 05/18/2022 31.0 24.0 - 34.3 sec Final Total Protein Date Value Ref Range Status 06/12/2022 7.5 6.4 - 8.3 g/dL Final Albumin Date Value Ref Range Status 06/12/2022 4.3 3.5 - 5.0 g/dL Final AST Date Value Ref Range Status 06/12/2022 16 10 - 39 U/L Final ALT Date Value Ref Range Status 06/12/2022 12 10 - 52 U/L Final GGT Date Value Ref Range Status 06/12/2022 20 8 - 64 U/L Final Bilirubin Total Date Value Ref Range Status 06/12/2022 1.0 <1.5 mg/dL Final CALCIUM (CA), MANUAL ENTER Date Value Ref Range Status 06/06/2022 9.4 Final Phosphate (PO4), Manual Enter Date Value Ref Range Status 06/06/2022 3.1 Final MAGNESIUM (MG), MANUAL ENTER Date Value Ref Range Status 06/06/2022 1.3 Final TOTAL CHOLESTERL, MANUAL ENTER Date Value Ref Range Status 08/16/2021 98 Final HDL, MANUAL ENTER Date Value Ref Range Status 08/16/2021 42 Final LDL, MANUAL ENTER Date Value Ref Range Status 08/16/2021 50 Final TRIGLYCERIDES, MANUAL ENTER Date Value Ref Range Status 08/16/2021 57 Final Assessment and Plan: Patient is a 52 y.o. male, s/p combined Liver-kidney transplant. 1. Immunosuppression: George Styles is currently taking tacrolimus and mycophenolate for immunosuppression management and is tolerating it well. No changes made today with this regimen. 2. Allograft function: Is stable, based on the serum creatinine trends. 3. Hypertension: Also stable based on the home BP recordings. No changes made with the current anti-hypertensive regimen. Continue to monitor BP frequently and record. 4. Anemia: Hemoglobin and iron studies are within normal limits. 5. Recent FAYE with nephrolithiasis: Waiting for the Urology follow-up. We will send off a urine sample for culture and micro. Results showed only 50,000 CFU with skin shimon and microscopy showed 20 WBC/hpf. I will continue with oral ciprofloxacin 500 mg BID for 2 weeks for now. He was instructed to call the IR if he noticed any nephrostomy dysfunction. Patient is otherwise scheduled to follow up with me in 12 months. Lab draws will be every month. Please do not hesitate to contact me if you have any questions. Steve Latham MD gunsmith apprentice Division of Nephrology [facility] documented in this encounter [facility] 06-04-2022 Instructions TATI GROVE - 06/04/2022 11:04 AM EDT Thank you for joining us for your neph tube follow up. We recommend routine exchange every 8-10 weeks. Please reach out at [phone] when it is time to set your next routine exchange. Thank you IR clinic documented in this encounter [facility] 06-04-2022 History of Present illness Narrative Met with patient today in IR clinic to discuss neph tube f/u. Pt had a right neph tube placed in a RLQ transplanted kidney 05/17/22. He is doing well. The tube is draining clear yellow urine. The dressing is dry and intact with tegaderm dressing. Stated the suture is intact. Supplies given. Neph tube exchange discussed. Has an upcoming Urology appointment.Number given to call to schedule exchange. Verbalized understanding. documented in this encounter [facility] 05-20-2022 Note Formatting of this n ote might be different from the original. Patient discharged. AVS printed and reviewed with patient and answered all his questions. Verbalized understanding and return demonstration on the dressing change and care of the dressing over the nephrostomy site following a teaching provided to him about the care and change of dressing.. Patient collected all his personal belongings and was wheeled down to the lobby to join his family ride home. Patient is in now distressbat the time of his discharge. Leon Cook RN [facility] 05-20-2022 Miscellaneous Notes Patient discharged. AVS printed and reviewed with patient and answered all his questions. Verbalized understanding and return demonstration on the dressing change and care of the dressing over the nephrostomy site following a teaching provided to him about the care and change of dressing.. Patient collected all his personal belongings and was wheeled down to the lobby to join his family ride home. Patient is in now distressbat the time of his discharge. Leon Cook RN Problem: Patient Care Overview Goal: Plan of Care Review Outcome: Adequate for Discharge Goal: Individualization & Mutuality Outcome: Adequate for Discharge Goal: Discharge Needs Assessment Outcome: Adequate for Discharge Goal: Interdisciplinary Rounds/Family Conf Outcome: Adequate for Discharge Problem: Pain, Acute (Adult) Goal: Identify Related Risk Factors and Signs and Symptoms Description: Related risk factors and signs and symptoms are identified upon initiation of Human Response Clinical Practice Guideline (CPG) Outcome: Adequate for Discharge Goal: Acceptable Pain Control/Comfort Level Description: Patient will demonstrate the desired outcomes by discharge/transition of care. Outcome: Adequate for Discharge Anne Dillard MD R10 Rm 1006 Jensen Orellana Please let's have a clear order on how the nephrostomy site dressing need to be changed when the patient goes home so we provide teaching before his discharge Leon RN #[id number] Leon Cook RN Afternoon assessment completed at this time. No changes to previously charted assessment. Straining UOP. Monitoring electrolytes. VSS. Pain controlled with current regimen. Rn to continue to monitor. Problem: Pain, Acute (Adult) Goal: Identify Related Risk Factors and Signs and Symptoms Description: Related risk factors and signs and symptoms are identified upon initiation of Human Response Clinical Practice Guideline (CPG) Outcome: Ongoing Goal: Acceptable Pain Control/Comfort Level Description: Patient will demonstrate the desired outcomes by discharge/transition of care. Outcome: Ongoing Problem: Patient Care Overview Goal: Plan of Care Review Outcome: Ongoing Goal: Individualization & Mutuality Outcome: Ongoing Goal: Discharge Needs Assessment Outcome: Ongoing Goal: Interdisciplinary Rounds/Family Conf Outcome: Ongoing Discussed with [facility] re: possible urine culture performed at their facility. However, based on urinalysis completed at that time, which was only notable for hematuria, culture was not performed and sample no longer feasible for culture. Liam Julian MD Internal Medicine/Pediatrics, PGY-3 2002: IHIS message sent to Dr Justyn Wen, regarding patient passing a small kidney stone, about the size of pea. notified. Stone left in strainer in pt bathroom. 0500: IHIS message sent to Dr Justyn Wen, regarding pt BP 174/77. Problem: Patient Care Overview Goal: Plan of Care Review Outcome: Ongoing Goal: Individualization & Mutuality Outcome: Ongoing Goal: Discharge Needs Assessment Outcome: Ongoing Goal: Interdisciplinary Rounds/Family Conf Outcome: Not Met This Shift Problem: Pain, Acute (Adult) Goal: Identify Related Risk Factors and Signs and Symptoms Description: Related risk factors and signs and symptoms are identified upon initiation of Human Response Clinical Practice Guideline (CPG) Outcome: Ongoing Goal: Acceptable Pain Control/Comfort Level Description: Patient will demonstrate the desired outcomes by discharge/transition of care. Outcome: Ongoing Urology Plan of Care Note Pt is s/p PNT placement by IR into txp kidney. Please monitor for post-obstructive diuresis syndrome as below or if preferred can discuss with nephrology. Please monitor for post-obstructive diuresis. Post-obstructive diuresis should be expected if the patient voids over 1L in an 8h shift (not including the initial volume out from the patient's bladder on catheter placement). If post-obstructive diuresis is present: > Please make PO fluids freely available to patient and encourage the patient to drink to thirst > Please record PO and urine output Q4H > Please check chem10 Q8H and replace Ca>8, K>4, Phos>3, Mg>2 > Continue MIVF at 125/hr > Every 8 hours, divide the patient's urine output by 2, and administer 1/2NS as a bolus in the derived amount minus IV and PO fluids received in that shift. If the patient becomes hyponatremic, NS should instead be used. IHIS chat sent to Dr Tray Quintana, regarding pt BP 190/86. Pt complaining of pain at site of neph tube. PRN pain medication given per order parameters. Pt denies any other symptoms at this time. notified and aware. At 0900, I rounded with Dr. Gamez and Dr. Saldana. At that time I checked Mr. Styles's vital signs. His pulse oximeter was low and he was tachypneic. Verbal order at bedside to put nasal cannula on starting at 2liters oxygen and to provide incentive spirometer. Interventional Radiology procedure completed with IR Attending Dr. Heart / Dr. Le of percutaneous right nephrostomy tube placement transplant kidney 10.2 Fr Griffin acosta Pt tolerated procedure with moderate sedation local numbing agent . Transported to inpatient after phase I recovery. Post procedure orders in place. At 1530, I text chavad Kaitlynn Gomez MD that patient has only had 25ml urine output in myers this afternoon. Urology Plan of Care Mr. Styles is a 52 y.o. 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 Urology consulted for new 6 mm calcification in the right transplant lower pole vs possible UPJ, with associated right renal edema, no clear hydronephrosis and unable to fully trace the ureteral course. Also multiple calcifications along the transplant hilum and inferiorly that are not clearly within the collecting system. Unclear if stone is causing obstruction or if hydronephrosis is present. Clinical presentation of new LUTS and +UA suspicious for UTI. Cr increased significant this morning to 5.23 from 2.85 (baseline 1). Though there is some uncertainty whether his transplant is obstructed, given the rapid rise in Cr and minimal UOP, recommend urgent placement of transplant nephrostomy tube with IR. Catheter flushed easily on rounds, appears to be draining well. Plan: -IR Consult for transplant nephrostomy tube. -Obtain urine cx and empirically treat for UTI then based on speciation/sensitivities -Would trend renal function: recommend transplant medicine consultation to evaluate other acute causes of renal injury - Tentative followup plan will be repeat CT in about 1 month with urology followup, urology will arrange. - Urology will continue to follow peripherally, please reach out with questions. Evan Byrd MD Urology, PGY-2 #[id number] I certify that this patient requires inpatient services at this time. I anticipate the expected length of stay will include at least two midnights. Inpatient services are due to the following medical concerns Obstructive kidney stone. Plans for post hospitalization care will be discharge to home. No change from previous assessment. VSS/RA. Pain control with PRNs. Myers with little UOP overnight - urine pink tinged. Blood cx sent. Resting with call light in reach. Problem: Pain, Acute (Adult) Goal: Identify Related Risk Factors and Signs and Symptoms Description: Related risk factors and signs and symptoms are identified upon initiation of Human Response Clinical Practice Guideline (CPG) Outcome: Ongoing Flowsheets (Taken 05/16/2022441) Related Risk Factors (Acute Pain): patient perception disease process positioning Signs and Symptoms (Acute Pain): verbalization of pain descriptors Goal: Acceptable Pain Control/Comfort Level Description: Patient will demonstrate the desired outcomes by discharge/transition of care. Outcome: Ongoing Flowsheets (Taken 05/16/2022441) Acceptable Pain Control/Comfort Level: making progress toward outcome Problem: Pain, Acute (Adult) Intervention: Monitor/Manage Analgesia Flowsheets Taken 05/16/2022441 Bowel Intervention: ambulation promoted privacy promoted Taken 05/16/2022 0028 Pain Management Interventions: medication given, see MAR Intervention: Mutually Develop/Implement Acute Pain Management Plan Flowsheets (Taken 05/16/2022441) Sensory Stimulation Regulation: care clustered Intervention: Support/Optimize Psychosocial Response to Acute Pain Flowsheets (Taken 05/16/2022441) Supportive Measures: active listening utilized decision-making supported Trust Relationship/Rapport: care explained choices provided On admission to R10, a dual RN initial assessment of skin condition was performed by Kallie Lorenzana RN and Sheri Arguelles RN. Skin Assessment: WDL Jose Score: 20 LDA Added:N Kallie Lorenzana RN documented in this encounter [facility] 05-20-2022 Note Formatting of this n ote might be different from the original. Problem: Patient Care Overview Goal: Plan of Care Review Outcome: Adequate for Discharge Goal: Individualization & Mutuality Outcome: Adequate for Discharge Goal: Discharge Needs Assessment Outcome: Adequate for Discharge Goal: Interdisciplinary Rounds/Family Conf Outcome: Adequate for Discharge Problem: Pain, Acute (Adult) Goal: Identify Related Risk Factors and Signs and Symptoms Description: Related risk factors and signs and symptoms are identified upon initiation of Human Response Clinical Practice Guideline (CPG) Outcome: Adequate for Discharge Goal: Acceptable Pain Control/Comfort Level Description: Patient will demonstrate the desired outcomes by discharge/transition of care. Outcome: Adequate for Discharge [facility] 05-20-2022 Note Formatting of this n ote might be different from the original. Paged Vera Dillard MD R10 Rm 1006 Jensen George Please let's have a clear order on how the nephrostomy site dressing need to be changed when the patient goes home so we provide teaching before his discharge Leon RN #[id number] Leon Cook RN [facility] 05-20-2022 History of Present illness Narrative Images from the original note were not included. [facility] ([facility] Note: [facility] received the following discharge prescription(s): Medication reconciliation was completed with comparison to discharge reconciliation report. The prescription(s) will be delivered to the patient's bedside on 05/20/22. Total cost is $0. Yanira Her RPh,PharmD Specialty ([place]) [phone] Jakob [phone] [facility] [phone] David [phone] [place] [phone] Bedside Delivery ([facility]) [phone] Attending I saw George Styles at the [facility] on 05/19/2022. I saw and independently evaluated the patient. I have discussed the case with the fellow and formulated the plan of care with them Subjective: No complaints Physical Examination: Vitals: 05/19/22 1214 BP: 137/63 Pulse: 64 Resp: 16 Temp: 98.1 F (36.7 C) I/O last 3 completed shifts: In: 1663.9 [P.O.:1295; I.V.:279.6; IV Piggyback:89.3] Out: 2325 [Urine:2325] I/O this shift: In: 42.4 Out: 600 [Urine:600] BP 137/63 (BP Location: Right arm, BP Position: Lying) Pulse 64 Temp 98.1 F (36.7 C) (Oral) Resp 16 Ht 1.702 m (5' 7.01 ) Wt 103.9 kg (229 lb 1.6 oz) Comment: standing scale SpO2 95% BMI 35.87 kg/m Smoking Status Former Smoker HEENT unremarkable, no icterus, op clear Neck supple, JVP 7 cm COR regular, no s3 or rub Lungs clear, no rales Abd soft, NT, BS + Ext 1 + edema Neuro nonfocal Due to COVID emergency and in an attempt to reduce risk of viral contraction and transmission, patient may not have been fully independently examined and use of other providers assessments were made in conjunction with my assessment to reach the best assessment and recommendations. Relevent Data: Current Facility-Administered Medications Medication Dose Route Frequency Provider Last Rate Last Admin acetaminophen (TYLENOL) tablet 650 mg 650 mg Oral Q6H PRN Evan Bennett MD 650 mg at 05/18/22 2520 allopurinol (ZYLOPRIM) tablet 100 mg 100 mg Oral Daily Nishant Gamez MD 100 mg at 05/19/22 0805 amLODIPine (NORVASC) tablet 5 mg 5 mg Oral Daily Evan Bennett MD 5 mg at 05/19/22 0805 aspirin chewable tablet 81 mg 81 mg Oral Daily Evan Bennett MD 81 mg at 05/19/22 0805 atorvastatin (LIPITOR) tablet 20 mg 20 mg Oral QHS Evan Bennett MD 20 mg at 05/18/221999 benzocaine-menthol (CEPACOL) 15-3.6 MG per lozenge 1 lozenge 1 lozenge Oral Q2H PRN Evan Bennett MD cefTRIAXone (ROCEPHIN) 2 g in dextrose 50mL premix IVPB 2 g Intravenous Q24H Nishant Gamez MD Stopped at 05/18/22 180 faMOTIdine (PEPCID) tablet 20 mg 20 mg Oral Daily Evan Bennett MD 20 mg at 05/19/22 08 gabapentin (NEURONTIN) capsule 400 mg 400 mg Oral QHS Evan Bennett MD 400 mg at 05/18/221999 guaiFENesin (ROBITUSSIN) oral solution 400 mg 400 mg Oral Q6H PRN Evan Bennett MD heparin injection 5,000 Units 5,000 Units Subcutaneous Q8H Nishant Gamez MD 5,000 Units at 05/19/22 0804 iodixanol (VISIPAQUE) injection 320 mg/mL for IR PRN Enzo Heart, DO 15 mL at 05/17/22 1101 [Held by provider] losartan (COZAAR) tablet 50 mg 50 mg Oral BID Evan Bennett MD melatonin tablet 3 mg 3 mg Oral QHS PRN Evan Bennett MD mycophenolate sodium (MYFORTIC) tablet DR 360 mg 360 mg Oral Q12HNS Evan Bennett MD 360 mg at 05/19/22 0805 ondansetron 4mg/2ml (ZOFRAN) injection 4 mg 4 mg Intravenous Q6H PRN Evan Bennett MD Or ondansetron (ZOFRAN) tablet 4 mg 4 mg Oral Q6H PRN Evan Bennett MD oxyCODONE HCl (ROXICODONE) tablet 10 mg 10 mg Oral Q4H PRN Nishant Gamez MD 10 mg at 05/18/22 0806 Or oxyCODONE (ROXICODONE) tablet 5 mg 5 mg Oral Q4H PRN Nishant Gamez MD 5 mg at 05/19/22 0825 polyethylene glycol (MIRALAX) packet 17 g 17 g Oral Q12H Nishant Gamez MD 17 g at 05/18/221958 senna (SENOKOT) tablet 8.6 mg 8.6 mg Oral Daily Nishant Gamez MD 8.6 mg at 05/19/22 0806 sodium chloride 0.9% IV solution 250 mL 250 mL Intravenous PRN Evan Bennett MD tacrolimus (PROGRAF) capsule 1 mg 1 mg Oral Q12H Evan Bennett MD 1 mg at 05/19/22 0805 Tamsulosin HCl (FLOMAX) capsule 0.4 mg 0.4 mg Oral Daily Evan Bennett MD 0.4 mg at 05/19/22 0805 Lab Results Component Value Date SODIUM 141 05/19/2022 POTASSIUM 3.9 05/19/2022 CHLORIDE 106 05/19/2022 CO2 24 05/19/2022 BUN 21 05/19/2022 CREATSERUM 1.46 (H) 05/19/2022 Lab Results Component Value Date CREATSERUM 1.46 (H) 05/19/2022 CREATSERUM 1.91 (H) 05/18/2022 CREATSERUM 2.96 (H) 05/18/2022 CREATSERUM 1.07 03/03/2022 CREATSERUM 1.05 12/30/2021 CREATSERUM 1.11 12/02/2021 CREATSERUM 5.05 (H) 11/19/2018 Lab Results Component Value Date WBC 6.81 05/19/2022 HGB 12.0 (L) 05/19/2022 HCT 38.0 (L) 05/19/2022 PLATELET 199 05/19/2022 MCV 90.5 05/19/2022 I/S levels: Lab Results Component Value Date TACROLIMUS 4.1 05/16/2022 Assessment/Plan: Renal tx with ARF due to obstruction. Volume and electrolyte status are acceptable and no immediate need for HD today. Given improvement with neph tube, we will sign off Resume home IS Follow-up with urology for ongoing management Maxi Pringle MD Internal Medicine Daily Progress Note Patient: George Styles, 1970, [id number] Physician: Liam Julian MD, PGY-3, Pager #[phone], [id number] Subjective/Interval History: No acute events overnight. Passed stone this morning, will send to lab for analysis. Overall reporting improvement in abdominal pain. Objective: Vitals: 05/19/22 0400 BP: 174/77 Pulse: 62 Resp: 16 Temp: 97.8 F (36.6 C) O2 Device: room air (05/19/22399) Flow (L/min): 3 (05/17/22 171) Gen: NAD, well-appearing HENT: NCAT, EOMI, MMM Cardio: RRR, normal S1/S2, no murmur Resp: CTA b/l, no increased WOB GI: soft, NT, ND, normal BS MSK: no joint swelling or erythema Ext: warm and well-perfused, no LE edema Neuro: alert and oriented, moving all four extremities Data Review: WBC/Hgb/Hct/Plts: 6.81/12.0/38.0/199 (05/19 421) Na/K+/Phos/Mg/Ca: 141/3.9/2.7/1.7/8.6 (05/19 421) Bun/Creat/Cl/CO2/Glucose: 21/1.46/106/24/103 (05/19 421) Assessment/Plan: George Styles is a 52 y.o. male s/p LK transplant 2019 presenting with 6mm kidney stone in the R kidney. Hydronephrosis s/p nephrostomy tube / Nephrolithiasis: Presented with abdominal pain and hematuria due to obstructing stone, now s/p nephrostomy tube placement (05/17/2022) with improvement in labs. - Continue Ceftriaxone for 5 day course. - Continue to monitor UOP and electrolytes associated with post-obstructive diuresis. - Send stone to lab for analysis. - Urology consulted, appreciate recommendations. FAYE on transplanted kidney: Rapidly improving after nephrostomy tube placement. 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 - Continue home Tacrolimus and CellCept. CAD Continue aspirin and statin HTN - Continue home Amlodipine - Consider restarting home Losartan when Cr at baseline GERD Pepcid DVT prophylaxis with heparin Disposition: Continue admission for monitoring of post-obstructive diuresis with electrolyte replacement. Anticipate discharge in 1-2 days. Code status is FULL. Discussed with team and attending Liam Julian MD Internal Medicine/Pediatrics, PGY-3 Associated attestation - Daya Saldana MD - 05/19/2022 2:41 PM EDT Attending attestation: I have independently seen, interviewed, and examined the patient. I have reviewed the medical record including vital signs, labs, imaging, ECGs when applicable. I agree with the history, physical exam findings, and medical decision making as outlined by the resident with the following additions/changes. 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 He did pass 1 stone this morning and we have sent this to the lab. We will continue to strain his urine and if any further stones are past we can send those as well. Thus far his urine cultures have been negative. Lab at the outside hospital ED where he presented did not send the urine for culture as it did not look positive for infection. Will likely give a total of 5-7 days of ceftriaxone. May be able to discharge tomorrow, will need follow-up appointments with Urology, IR and will need to get set up with a 24 hour urine collection test if transplant nephrology still thinks appropriate. Daya (Nunu) Jeff Saldana MD Division of Hospital Medicine Pager [phone] Attending I saw George Feliz Jensen at the [facility] on 05/18/2022. I saw and independently evaluated the patient. I have discussed the case with the fellow and formulated the plan of care with them Subjective: No complaints Physical Examination: Vitals: 05/18/22 0410 BP: 190/86 Pulse: 83 Resp: 18 Temp: 98.4 F (36.9 C) I/O last 3 completed shifts: In: 1910.3 [P.O.:1455; I.V.:405.3; IV Piggyback:50] Out: 3350 [Urine:3350] No intake/output data recorded. BP 190/86 (BP Location: Right arm, BP Position: Lying) Pulse 83 Temp 98.4 F (36.9 C) (Oral) Resp 18 Ht 1.702 m (5' 7.01 ) Wt 106.9 kg (235 lb 9.6 oz) SpO2 94% BMI 36.89 kg/m Smoking Status Former Smoker HEENT unremarkable, no icterus, op clear Neck supple, JVP 7 cm COR regular, no s3 or rub Lungs clear, no rales Abd soft, NT, BS + Ext 1 + edema Neuro nonfocal, no myoclonus Due to COVID emergency and in an attempt to reduce risk of viral contraction and transmission, patient may not have been fully independently examined and use of other providers assessments were made in conjunction with my assessment to reach the best assessment and recommendations. Relevent Data: Current Facility-Administered Medications Medication Dose Route Frequency Provider Last Rate Last Admin acetaminophen (TYLENOL) tablet 650 mg 650 mg Oral Q6H PRN Evan Bennett MD 650 mg at 05/17/22 1008 allopurinol (ZYLOPRIM) tablet 100 mg 100 mg Oral Daily Nishant Gamez MD 100 mg at 05/17/22 0947 amLODIPine (NORVASC) tablet 5 mg 5 mg Oral Daily Evan Bennett MD 5 mg at 05/17/22 0947 aspirin chewable tablet 81 mg 81 mg Oral Daily Evan Bennett MD 81 mg at 05/16/22 1018 atorvastatin (LIPITOR) tablet 20 mg 20 mg Oral QHS Evan Bennett MD 20 mg at 05/17/222038 benzocaine-menthol (CEPACOL) 15-3.6 MG per lozenge 1 lozenge 1 lozenge Oral Q2H PRN Evan Bennett MD cefTRIAXone (ROCEPHIN) 2 g in dextrose 50mL premix IVPB 2 g Intravenous Q24H Nishant Gamez MD Stopped at 05/17/221816 faMOTIdine (PEPCID) tablet 20 mg 20 mg Oral Daily Evan Bennett MD 20 mg at 05/17/22 09 gabapentin (NEURONTIN) capsule 400 mg 400 mg Oral QHS Evna Bennett MD 400 mg at 05/17/222038 guaiFENesin (ROBITUSSIN) oral solution 400 mg 400 mg Oral Q6H PRN Evan Bennett MD heparin injection 5,000 Units 5,000 Units Subcutaneous Q8H Nishant Gamez MD 5,000 Units at 05/16/222051 iodixanol (VISIPAQUE) injection 320 mg/mL for UH IR PRN Enzo Heart, DO 15 mL at 05/17/22 1101 [Held by provider] losartan (COZAAR) tablet 50 mg 50 mg Oral BID Evan Bennett MD Magnesium Sulfate 4 g in sterile water 50 ml premix IVPB 4 g Intravenous Once Nishant Gamez MD melatonin tablet 3 mg 3 mg Oral QHS PRN Evan Bennett MD mycophenolate sodium (MYFORTIC) tablet DR 360 mg 360 mg Oral Q12HNS Evan Bennett MD 360 mg at 05/17/222038 ondansetron 4mg/2ml (ZOFRAN) injection 4 mg 4 mg Intravenous Q6H PRN Evan Bennett MD Or ondansetron (ZOFRAN) tablet 4 mg 4 mg Oral Q6H PRN Evan Bennett MD oxyCODONE HCl (ROXICODONE) tablet 10 mg 10 mg Oral Q4H PRN Nishant Gamez MD 10 mg at 05/18/22 0338 Or oxyCODONE (ROXICODONE) tablet 5 mg 5 mg Oral Q4H PRN Nishant Gamez MD 5 mg at 05/17/221825 polyethylene glycol (MIRALAX) packet 17 g 17 g Oral Q12H Nishant Gamez MD 17 g at 05/17/222037 senna (SENOKOT) tablet 8.6 mg 8.6 mg Oral Daily Nishant Gamez MD 8.6 mg at 05/17/22 0947 sodium chloride 0.9% IV solution 250 mL 250 mL Intravenous PRN Evan Bennett MD [Held by provider] tacrolimus (PROGRAF) capsule 1 mg 1 mg Oral Q12H Evan Bennett MD Tamsulosin HCl (FLOMAX) capsule 0.4 mg 0.4 mg Oral Daily Evan Bennett MD 0.4 mg at 05/17/22 0947 Lab Results Component Value Date SODIUM 139 05/18/2022 POTASSIUM 4.2 05/18/2022 CHLORIDE 104 05/18/2022 CO2 26 05/18/2022 BUN 41 (H) 05/18/2022 CREATSERUM 2.96 (H) 05/18/2022 Lab Results Component Value Date CREATSERUM 2.96 (H) 05/18/2022 CREATSERUM 5.95 (H) 05/17/2022 CREATSERUM 8.08 (H) 05/17/2022 CREATSERUM 1.07 03/03/2022 CREATSERUM 1.05 12/30/2021 CREATSERUM 1.11 12/02/2021 CREATSERUM 5.05 (H) 11/19/2018 Lab Results Component Value Date WBC 10.19 (H) 05/18/2022 HGB 11.9 (L) 05/18/2022 HCT 37.3 (L) 05/18/2022 PLATELET 189 05/18/2022 MCV 90.5 05/18/2022 I/S levels: Lab Results Component Value Date TACROLIMUS 4.1 05/16/2022 Assessment/Plan: Renal tx with ARF due to obstruction. Neph tube placed yesterday with rapid improvement of renal funciton Volume and electrolyte status are acceptable and no immediate need for HD today. needs to follow and arrange management of stone and neph tube. Can resume home immunosuppression Ultimately (when renal function stable) needs 24 hr urine for citrate, calcium and oxalate to prevent future stones Can remove polly Pringle MD Internal Medicine Daily Progress Note Patient: George Styles, 1970, [id number] Physician: Nishant Gamez MD, PGY2, Pager #[phone], [id number] Subjective/Interval History: Nephrostomy tube placed yesterday with a lot of urine output and significant improvement in creatinine. Objective: Vitals: 05/18/22409 BP: 190/86 Pulse: 83 Resp: 18 Temp: 98.4 F (36.9 C) O2 Device: room air (05/18/22409) Flow (L/min): 3 (05/17/22 1719) Gen: NAD, well-appearing HENT: NCAT, EOMI, MMM Cardio: RRR, normal S1/S2, no murmur Resp: CTA b/l, no increased WOB GI: soft, NT, ND, normal BS MSK: no joint swelling or erythema Ext: warm and well-perfused, no LE edema Neuro: alert and oriented, moving all four extremities Data Review: WBC/Hgb/Hct/Plts: 10.19/11.9/37.3/189 (05/18 428) Na/K+/Phos/Mg/Ca: 139/4.2/2.8/1.7/-- (05/18 428) Bun/Creat/Cl/CO2/Glucose: 41/2.96/104/26/136 (05/18 428) Ptt/Pt/Inr: 31.0/14.4/1.1 (05/18 428) Assessment/Plan: George Styles is a 52 y.o. male s/p LK transplant 2019 presenting with 6mm kidney stone in the R kidney. Obstructing 6mm Kidney Stone: Patient presenting with 6mm Kidney stone and a week of hematuria and worsening abdominal pain. Currently has leukocytosis to 15 on admission. 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 - Restart home tacrolimus - continue cellcept 360 bid. CAD Continue aspirin and statin Htn Home regimen continued with amlodipine and holding losartan GERD Pepcid DVT prophylaxis with heparin Disposition: GM 4 for puente control and infectious workup Code status is FULL. Discussed with team and attending Signed, Nishant Gamez MD Associated attestation - Daya Saldana MD - 05/18/2022 3:25 PM EDT Attending attestation: I have independently seen, interviewed, and examined the patient. I have reviewed the medical record including vital signs, labs, imaging, ECGs when applicable. I agree with the history, physical exam findings, and medical decision making as outlined by the resident with the following additions/changes. 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 Excellent UOP. Restarting tacro. Continue empiric ceftriaxone given manipulation of the urinary system, although culture remains negative. Will watch electrolytes closely for post obstructive diuresis causing hypoK or hypoMg. Urology has recommended MIVF at and replacement equation. Monitor respiratory status closely while on MIVF. Will need f/up w/ urology for stone removal and IR for neph tube removal when able. Will need 24 hr urine, can be done here or at home but creatinine needs to have stablized for this to be field representative/health education. Daya Saldana MD (Peggy) Division of Hospital Medicine Pager [phone] Internal Medicine Daily Progress Note Patient: George Styles, 1970, [id number] Physician: Nishant Gamez MD, PGY2, Pager #[phone], [id number] Subjective/Interval History: Worsening creatinine this morning with minimal urine output. Paged IR to let them no of his worsening kidney function. They plan for nephrostomy tube placement this morning. Objective: Vitals: 05/17/22333 BP: 134/71 Pulse: 122 Resp: 20 Temp: 98.6 F (37 C) O2 Device: room air (05/17/22333) Gen: NAD, well-appearing HENT: NCAT, EOMI, MMM Cardio: RRR, normal S1/S2, no murmur Resp: CTA b/l, no increased WOB GI: soft, NT, ND, normal BS MSK: no joint swelling or erythema Ext: warm and well-perfused, no LE edema Neuro: alert and oriented, moving all four extremities Data Review: WBC/Hgb/Hct/Plts: 16.61/13.3/42.8/188 (05/17 353) Na/K+/Phos/Mg/Ca: 135/5.0/4.9/1.6/-- (05/17 353) Bun/Creat/Cl/CO2/Glucose: 56/8.08/100/16/164 (05/17 353) Ptt/Pt/Inr: 33.0/15.7/1.3 (05/17 353) Assessment/Plan: George Styles is a 52 y.o. male s/p LK transplant 2019 presenting with 6mm kidney stone in the R kidney. Obstructing 6mm Kidney Stone: Patient presenting with 6mm Kidney stone and a week of hematuria and worsening abdominal pain. Currently has leukocytosis to 15 on admission. Images pushed from Lo. Creatinine is rising quickly with limited urine output - Urology following - Repeat UA and urine culture given elevated white count - Ceftriaxone for UTI - Hold further fluids until nephrostomy tube placement - Discussed with IR worsening kidney function, plan for nephrostomy tube placement today - Oxycodone 5 or 10 mg FAYE on transplanted kidney: This is most likely related to obstruction given his rapid increase in creatinine without other reason for FAYE - transplant neph consult: agree this is likely related to the stone, agree with neph tube placement - Myers placed before transfer History of liver and kidney transplant: 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 - Holding home tac 1mg bid and - continue cellcept 360 bid. - Tac trough ordered; UPCR and lytes ordered CAD Continue aspirin and statin Htn Home regimen continued with amlodipine and losartan GERD Pepcid DVT prophylaxis with heparin Disposition: GM 4 for puente control and infectious workup Code status is FULL. (Decision makers are his siblings if he cannot answer for himself) Discussed with team and attending Signed, Nishant Gamez MD Associated attestation - Daya Saldana MD - 05/17/2022 1:37 PM EDT Attending attestation: I have independently seen, interviewed, and examined the patient. I have reviewed the medical record including vital signs, labs, imaging, ECGs when applicable. I agree with the history, physical exam findings, and medical decision making as outlined by the resident with the following additions/changes. 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 His legs in abdomen or feeling swollen and has new oxygen requirement, likely due to fluid resuscitation that was an attempt to help the stone but was not successful. Starting supplemental oxygen. IR to do percutaneous nephrostomy tube placement today to alleviate the pressure on his transplant kidney. Starting to make more urine. Will repeat urine culture. He had a temperature of a 100 , heart rate of 122 and white blood cell count remains elevated at 16. Continue ceftriaxone but very low threshold to collect blood cultures and broaden to cefepime and vanco if he becomes unstable. Transplant Nephrology concerned that the patient may need dialysis due to worsening anion gap acidosis, decreasing bicarb and slowly elevating potassium and phosphorus. We will repeat his chemistry this afternoon. His fistula is still working to his knowledge. Daya Saldana MD (Peggy) Division of Hospital Medicine Pager [phone] Attending I saw George Styles at the [facility] on 05/17/2022. I saw and independently evaluated the patient. I have discussed the case with the fellow and formulated the plan of care with them Subjective: Notes discomfort lower abd Physical Examination: Vitals: 05/17/22 0334 BP: 134/71 Pulse: 122 Resp: 20 Temp: 98.6 F (37 C) I/O last 3 completed shifts: In: 2527.1 [P.O.:660; I.V.:1817.1; IV Piggyback:50] Out: 175 [Urine:175] No intake/output data recorded. BP 134/71 (BP Location: Right arm, BP Position: Lying) Pulse 122 Temp 98.6 F (37 C) (Oral) Resp 20 Ht 1.702 m (5' 7.01 ) Wt 105.8 kg (233 lb 3.2 oz) SpO2 94% BMI 36.52 kg/m Smoking Status Former Smoker HEENT unremarkable, no icterus, op clear Neck supple, JVP 8 cm COR regular, no s3 or rub Lungs clear, no rales Abd soft, NT, BS + Ext 2 + edema Neuro nonfocal awake alert, mild myoclonus Due to COVID emergency and in an attempt to reduce risk of viral contraction and transmission, patient may not have been fully independently examined and use of other providers assessments were made in conjunction with my assessment to reach the best assessment and recommendations. Relevent Data: Current Facility-Administered Medications Medication Dose Route Frequency Provider Last Rate Last Admin acetaminophen (TYLENOL) tablet 650 mg 650 mg Oral Q6H PRN Evan Bennett MD 650 mg at 05/16/22 1712 allopurinol (ZYLOPRIM) tablet 100 mg 100 mg Oral Daily Nishant Gamez MD amLODIPine (NORVASC) tablet 5 mg 5 mg Oral Daily Evan Bennett MD 5 mg at 05/16/22 1018 aspirin chewable tablet 81 mg 81 mg Oral Daily Evan Bennett MD 81 mg at 05/16/22 1018 atorvastatin (LIPITOR) tablet 20 mg 20 mg Oral QHS Evan Bennett MD 20 mg at 05/16/22 2048 benzocaine-menthol (CEPACOL) 15-3.6 MG per lozenge 1 lozenge 1 lozenge Oral Q2H PRN Evan Bennett MD cefTRIAXone (ROCEPHIN) 2 g in dextrose 50mL premix IVPB 2 g Intravenous Q24H Nishant Gamez MD 100 mL/hr at 05/17/22 0546 Rate Verify at 05/17/22 0546 faMOTIdine (PEPCID) tablet 20 mg 20 mg Oral Daily Evan Bennett MD 20 mg at 05/16/22 1018 gabapentin (NEURONTIN) capsule 400 mg 400 mg Oral QHS Evan Bennett MD 400 mg at 05/16/22 2048 guaiFENesin (ROBITUSSIN) oral solution 400 mg 400 mg Oral Q6H PRN Evan Bennett MD heparin injection 5,000 Units 5,000 Units Subcutaneous Q8H Nishant Gamez MD 5,000 Units at 05/16/222051 lactated ringers IV solution Intravenous Continuous Nishant Gamez MD 125 mL/hr at 05/17/22 0546 Rate Verify at 05/17/22 0546 [Held by provider] losartan (COZAAR) tablet 50 mg 50 mg Oral BID Evan Bennett MD melatonin tablet 3 mg 3 mg Oral QHS PRN Evan Bennett MD mycophenolate sodium (MYFORTIC) tablet DR 360 mg 360 mg Oral Q12HNS Evan Bennett MD 360 mg at 05/16/222051 ondansetron 4mg/2ml (ZOFRAN) injection 4 mg 4 mg Intravenous Q6H PRN Evan Bennett MD Or ondansetron (ZOFRAN) tablet 4 mg 4 mg Oral Q6H PRN Evan Bennett MD oxyCODONE HCl (ROXICODONE) tablet 10 mg 10 mg Oral Q4H PRN Nishant Gamez MD 10 mg at 05/16/222047 Or oxyCODONE (ROXICODONE) tablet 5 mg 5 mg Oral Q4H PRN Nishant Gamez MD 5 mg at 05/16/22 154 polyethylene glycol (MIRALAX) packet 17 g 17 g Oral Q12H Nishant Gamez MD 17 g at 05/16/222047 senna (SENOKOT) tablet 8.6 mg 8.6 mg Oral Daily Nishant Gamez MD 8.6 mg at 05/16/22 1018 sodium chloride 0.9% IV solution 250 mL 250 mL Intravenous PRN Evan Bennett MD [Held by provider] tacrolimus (PROGRAF) capsule 1 mg 1 mg Oral Q12H Evan Bennett MD Tamsulosin HCl (FLOMAX) capsule 0.4 mg 0.4 mg Oral Daily Evan Bennett MD 0.4 mg at 05/16/22 1018 Lab Results Component Value Date SODIUM 135 05/17/2022 POTASSIUM 5.0 05/17/2022 CHLORIDE 100 05/17/2022 CO2 16 (L) 05/17/2022 BUN 56 (H) 05/17/2022 CREATSERUM 8.08 (H) 05/17/2022 Lab Results Component Value Date CREATSERUM 8.08 (H) 05/17/2022 CREATSERUM 6.09 (H) 05/16/2022 CREATSERUM 5.23 (H) 05/16/2022 CREATSERUM 1.07 03/03/2022 CREATSERUM 1.05 12/30/2021 CREATSERUM 1.11 12/02/2021 CREATSERUM 5.05 (H) 11/19/2018 Lab Results Component Value Date WBC 16.61 (H) 05/17/2022 HGB 13.3 (L) 05/17/2022 HCT 42.8 05/17/2022 PLATELET 188 05/17/2022 MCV 92.8 05/17/2022 I/S levels: Lab Results Component Value Date TACROLIMUS 4.1 05/16/2022 Assessment/Plan: Renal tx with ARF. He has concern over obstruction due to stone He needs to have a nephrostogram today due to solitary kidney - this should not wait over the weekend. Obtain alloscreen Hold tacro Will HD today to optimize volume and metabolic status given abrupt ARF. If neg nephrostogram, will need to pursue other causes of ARF. Maxi Pringle MD Admission Screening for Discharge Planning Patient is here for FAYE and renal stone in patient with Hx of Kidney/Liver transplant 04/12/2020. Urology recommended empiric abx until urine culture returns. After review of chart and discussion with treatment team, Clinical Administrative Coordinator has not identified needs at this time. Patient is expected to discharge home. Should discharge needs arise please place a consult order for case management. Appointment for Urology was sent for revue. Urology will call the patient with a follow up appointment. Note place on AVS for patient. Risk of Readmission: 8.6 Category Reference: High:16-100 Mod-High:10-16 Mod-Low: 5-10 Low: 0-5 Renal Transplant US complete, report to follow. Introduced self and role of the machines technician to patient. Provided emotional and spiritual support and the patient responded by sharing their experience and discussed the following: - Spirituality/Sikh Affiliation: As a kid attended [employer] but not a strong identity now - Family support - pt's brothers live close by Sheeter Waxer Operator provided: - Supportive presence - Active listening - Validation of feelings/emotions Patient encouraged to request a machines technician as needed. Chaplains are available in-house 24 hours a day and 7 days a week. For urgent matters in [facility], please page [phone]. If the request is not urgent, please enter a consult. Consults are responded to within 24 hours. Angie Singh Mdiv, [facility] [place] [phone] Sheeter Waxer Operator [facility] Sheeter Waxer Operator [phone] [email or web address] 22/06 [facility] Pager [phone] 22/06 Pager ,[facility], and [place] 1500 22/06 David Pager [phone] 05/16/22 1129 Clinical Encounter Type Visited With Patient Visit Type Introduction Pastoral Time Spent 15 min Referral Other (See Comment) (Rounding) Spiritual Assessment Spiritual Observation Spirituality helpful;Identifies as (see comment) (Mormon) Emotional Observation Coping well Hope Observation Hopeful and accepting Support Observation By Family Interventions Provided Active listening;Supportive presence Facilitated Verbalization of feelings;Sharing of life story;Identifying support system Explored Expectations Director Employee Communications Education Director Employee Communications Service Available Yes Educated Patient Outcomes Patient Outcomes Articulated purpose/meaning Plan of Care Continue Visiting PRN Internal Medicine Daily Progress Note Patient: George Styles, 1970, [id number] Physician: Nishant Gamez MD, PGY2, Pager #[phone], [id number] Subjective/Interval History: Overall feeling okay this morning. Pain has improved. He only had 50 ml of urine out over the last 12 hours. He has noticed he has started to swell as well from the fluids and decreased urine output. Objective: Vitals: 05/16/22 0750 BP: 139/66 Pulse: 84 Resp: 16 Temp: 99.1 F (37.3 C) O2 Device: room air (05/16/22 0028) Gen: NAD, well-appearing HENT: NCAT, EOMI, MMM Cardio: RRR, normal S1/S2, no murmur Resp: CTA b/l, no increased WOB GI: soft, NT, ND, normal BS MSK: no joint swelling or erythema Ext: warm and well-perfused, no LE edema Neuro: alert and oriented, moving all four extremities Data Review: WBC/Hgb/Hct/Plts: 12.55/14.7/46.5/188 (05/16 613) Na/K+/Phos/Mg/Ca: 140/4.6/--/1.7/-- (05/16 613) Bun/Creat/Cl/CO2/Glucose: 42/5.23/106/22/116 (05/16 613) Ptt/Pt/Inr: 30.3/14.1/1.1 (05/16 613) Assessment/Plan: George Styles is a 52 y.o. male s/p LK transplant 2019 presenting with 6mm kidney stone in the R kidney. Obstructing 6mm Kidney Stone: Patient presenting with 6mm Kidney stone and a week of hematuria and worsening abdominal pain. Currently has leukocytosis to 15 on admission. Images pushed from Lo. Creatinine is rising quickly with limited urine output - Urology following - UCx pending; BCx ordered. - Ceftriaxone for UTI - CXR in the setting of new onset cough; added on procal - Maintenance fluids 125 ml/hr - IR consulted for consideration of nephrostomy tube placement, they do not feel this needs to be done today and plan to continue monitoring - Plan for repeat chem today to monitor kidney function - Ultrasound renal to evaluate for hydronephrosis given rapidly elevating creatinine with limited urine output - Oxycodone 5 or 10 mg FAYE on transplanted kidney: This is most likely related to obstruction given his rapid increase in creatinine without other reason for FAYE - transplant neph consult: agree this is likely related to the stone, agree with neph tube placement - Myers placed before transfer History of liver and kidney transplant: 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 - Holding home tac 1mg bid and - continue cellcept 360 bid. - Tac trough ordered; UPCR and lytes ordered CAD Continue aspirin and statin Htn Home regimen continued with amlodipine and losartan GERD Pepcid DVT prophylaxis with heparin Disposition: GM 4 for puente control and infectious workup Code status is FULL. (Decision makers are his siblings if he cannot answer for himself) Discussed with team and attending Signed, Nishant Gamez MD Associated attestation - Daya Saldana MD - 05/16/2022 7:57 PM EDT Attending attestation: I have independently seen, interviewed, and examined the patient. I have reviewed the medical record including vital signs, labs, imaging, ECGs when applicable. I agree with the history, physical exam findings, and medical decision making as outlined by the resident with the following additions/changes. 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 His Myers catheter is flushing well. Concern for urinary obstruction causing obstructive FAYE. STAT consult to IR-- he needs nephrostogram and potential neph tube urgently. IR would like to monitor renal function and see if it improves, if not, will likely need to be done this weekend so as to avoid further injury to his transplant kidney and potentially need to start dialysis. Continue IV fluids and tamsulosin, ceftriaxone for possible UTI while waiting on urinary cx. Daya Saldana MD ([facility]) Division of Hospital Medicine Pager [phone] Acute Physical Therapy Evaluation Prior to Admission [facility] score(s): PRIOR LEVEL AM-PAC Mobility Raw Score: 24 Current AM-PAC score(s): CURRENT AM-PAC Mobility Raw Score: 22 Based on the above AM-PAC score(s) and PT clinical judgment, patient is a good candidate for discharge to Home Barriers to discharge home: None Mobility equipment available at home: 2 wheeled walker, none used ADL equipment available at home: none Equipment needed for discharge: none Current therapy frequency recommendation in acute: Therapy Frequency: no therapy warranted Precautions and Weightbearing Status: Existing Precautions/Restrictions: no known precautions/restrictions Patient Safety Communication Prior to Visit: Nursing Respiratory Status O2 Device: room air Subjective: Pt agreeable to therapy session Pain: General Pain Documentation (Adult, OB, Peds) Presence of Pain: complains of pain/discomfort Pain Location: flank, right, back, right lower, headache DVPRS (Defense and Veterans Pain Rating Scale) DVPRS: Rest: 4- mild pain DVPRS: Activity: 4- mild pain Home Setting Residence: House Lives With: alone First floor setup: bedroom, tub shower Number of stairs to enter home: 4 Stair Railings at Home: entry - present on both sides Mobility Equipment Available: 2 wheeled walker, none used ADL Equipment Available: none Home Environment Details: Brother lives 6 miles from pt and can assist as needed. 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 Objective/Observation: Vitals/Vitals Responses to Treatment: appeared WDL with no overt signs/symptoms present. Cognition Overall Cognitive Status: Within Functional Limits Arousal/Alertness: Appropriate responses to stimuli Orientation Level: Oriented X4 Following Commands: Follows all commands and directions without difficulty Safety Judgment: Good awareness of safety precautions Awareness of Errors: Good awareness of errors made Deficits: Fully aware of deficits Vision Screen Currently wearing corrective lenses: No (wears for driving) Visual Impairments Observed?: No Speech Speech: no gross deficits noted Successful Methods (Communication Strategies): verbal speech Hearing Hearing: no gross deficits noted Extremity Assessments: RLE Assessment RLE Assessment: Within Functional Limits LLE Assessment LLE Assessment: Within Functional Limits Sensation Overall Sensation: Intact Sensation Comments: denies any numbness/tingling Mobility Assessment: Balance: Sitting Balance Static Sitting-Level of Assistance: Independent Dynamic Sitting-Level of Assistance: Independent Standing Balance Static Standing-Level of Assistance: Independent Dynamic Standing-Level of Assistance: Supervision Transfer Assessment: Sit to Stand Transfer [place] Level: Sit->Stand: independent Skilled Intervention/Details: Sit->Stand: x1 from EOB Stand to Sit Transfer [place] Level: Stand->Sit: supervision Assistive Device: Stand->Sit: armed chair Skilled Rationale: Controlled descent for sitting, Verbal cues Gait/Functional Mobility: Gait Assessment [place] Level: Gait: supervision Assistive Device: Gait: gait belt Gait Distance (feet): 200 Gait Deviations Identified: decreased grace, decreased step length, decreased stride length Gait Skilled Rationale: verbal, upright posture Skilled Intervention/Details - Gait: Pt with steady gait without LOB or complaints of SOB. Stairs: Stairs Assessment [place] Level: Stair Negotiation: stand-by assist Assistive Device: Stair Negotiation: gait belt, left rail (ascending) Number of stairs: 9 Stairs Skilled Rationale: reciprocal pattern Outcome Score(s): CURRENT [facility] Basic Mobility Inpatient Short Form Turning over in bed: 4 - No Assistance Sitting/standing from chair: 4 - No Assistance Moving from lying on back to sittin - No Assistance Moving to and from bed to chair: 4 - No Assistance Walk in hospital room: 3 - A Little Assistance Climbing 3-5 steps with a railin - A Little Assistance CURRENT [facility] Mobility Raw Score: 22 CURRENT [facility] Mobility Functional Limitation/Modifier: 20.91% Currently Impaired in Basic Mobility - CJ Interventions: Assessment & Plan: Patient was admitted for right lower abd and flank pain as well as gross hematuria and seen for therapy evaluation related to decreased functional mobility, endurance, and generalized weakness. Pt is near baseline functional performance and is currently independent to supervision for transfers, supervision for ambulation, and SBA for stair training. Pt reported no concerns with discharging home with [place] support. Pt with no skilled acute PT needs. PT will complete consult at this time. Please re-consult if further needs arise. Current clinical presentation is Stable - unchanging or predictable (Low). 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 Patient will benefit from skilled physical therapy to address these impairments, functional limitations, and participation restrictions and has rehab potential to achieve therapy goals. Plan for next session: PT will complete consult due to no acute PT needs. Acute PT Goals Notes from 05/16/2022 12:46 AM through 05/16/2022 12:46 PM Pt will verbalize understanding of PT recommendation for OOB to chair 3x/day and ambulation in hallway 3x/day to prevent deconditioning- goal met Evaluating Therapist: Perlita Rodriguez PT Additional Details: Co-evaluation/co-treatment performed?: Yes, simultaneous billable skilled care This co-evaluation session performed between PT and OT was beneficial, necessary and provided distinct services in establishing this person's individual plan of care. I used facemask, protective eye shield, and gloves in today's patient interaction. Evaluation Complexity Components History: Moderate (1-2 personal factors and/or comorbidities) Body Systems Review: Low (Addressing 1-2 elements) Clinical Presentation: Stable - unchanging or predictable (Low) Clinical Decision Making: Low Time In: 805 Time Out: 821 Total Visit Time: 16 minutes Total Treatment Time (skilled, billable minutes): 16 minutes Patient location at end of session: chair Alarms on at end of session: none Needs in reach. Upon discontinuation of Acute Care Physical Therapy Services or patient discharge from the hospital this note represents the current Physical Therapy Discharge Summary. Acute Occupational Therapy Evaluation Prior to Admission AM-PAC Score: PRIOR LEVEL AM-PAC Activity Raw Score: 24 Current AM-PAC score(s): CURRENT AM-PAC Activity Raw Score: 21 Based on the above AM-PAC score(s) and OT clinical judgment, discharge destination recommendation is: Home Barriers to discharge home: Patient needs assistance with functional mobility Mobility equipment available at home: 2 wheeled walker, none used ADL equipment available at home: none Equipment recommendations for discharge: none Current therapy frequency recommendation(s) in acute: no therapy warranted Precautions and Weightbearing Status: OT Existing Precautions/Restrictions: fall Patient Safety Communication Prior to Visit: Nursing Respiratory Status O2 Device: room air Subjective: Pt agreeable to therapy Pain: General Pain Documentation (Adult, OB, Peds) Presence of Pain: complains of pain/discomfort Pain Location: flank, right, back, right lower, headache DVPRS (Defense and Veterans Pain Rating Scale) DVPRS: Rest: 4- mild pain DVPRS: Activity: 4- mild pain Home Setting Residence: House Lives With: alone First floor setup: bedroom, tub shower Number of stairs to enter home: 4 Stair Railings at Home: entry - present on both sides Mobility Equipment Available: 2 wheeled walker, none used ADL Equipment Available: none Home Environment Details: Brother lives 6 miles from pt and can assist as needed. 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 IADL History IADLs: independent Primary Language: [place] Home Management Skills: independent Meal Prep Responsibility: Primary Laundry Responsibility: Primary Objective/Observation: Vitals/Vitals Responses to Treatment: VSS Vision Screen Currently wearing corrective lenses: No Visual Impairments Observed?: No Speech Speech: no gross deficits noted Successful Methods (Communication Strategies): verbal speech Hearing Hearing: no gross deficits noted Cognition Overall Cognitive Status: Within Functional Limits Arousal/Alertness: Appropriate responses to stimuli Orientation Level: Oriented X4 Following Commands: Follows all commands and directions without difficulty Safety Judgment: Good awareness of safety precautions Awareness of Errors: Good awareness of errors made Deficits: Fully aware of deficits Attention Span: Appears intact Memory: Appears intact Problem Solving: Able to problem solve independently ADLs: ADL Anticipated Performance (ADLs not directly observed this session): Eating, Grooming, Bathing, UE Dressing, Toileting Eating Assistance: Independent Grooming Assistance: Independent Bathing Assistance: Supervision UE Dressing Assistance: Independent LE Dressing Assistance: Supervision LE Dressing Location: edge of bed LE Dressing Deficit: Increased time to complete, Activity tolerance, Generalized weakness, Don/doff R sock, Don/doff L sock LE Dressing Skilled Rationale (Verbal/Tactile/Visual/Demonstrati on): Facilitate positioning, Technique of activity, Cues for increased safety, Setup, Supervision LE Dressing Intervention/Details: pt donned/doffed sock in figure 4 position; no LOB Toilet Assistance: Supervision Extremity Assessments: RUE Assessment RUE Assessment: Within Functional Limits LUE Assessment LUE Assessment: Within Functional Limits Balance: Sitting Balance Static Sitting-Level of Assistance: Independent Dynamic Sitting-Level of Assistance: Independent Skilled Rationale: Verbal cues, Cues for increased safety Sitting Balance Skilled Intervention/Details: sat unsupported EOB, no LOB Standing Balance Static Standing-Level of Assistance: Independent Dynamic Standing-Level of Assistance: Supervision Standing-Balance Support: Gait belt Skilled Rationale: Verbal cues, Cues for increased safety Standing Balance Skilled Intervention/Details: stood EOB to initiate transfer, no LOB Neuro: Sensation Overall Sensation: Intact Skin and Edema: Mobility Assessment: Transfer Assessment: Sit to Stand Transfer [place] Level: Sit->Stand: independent Skilled Rationale: Cues for increased safety Skilled Intervention/Details: Sit->Stand: x1 EOB Stand to Sit Transfer [place] Level: Stand->Sit: supervision Assistive Device: Stand->Sit: gait belt, armed chair Skilled Rationale: Verbal cues, Controlled descent for sitting, Cues for increased safety Skilled Intervention/Details: Stand->Sit: cues for hand placement and controlled descent Functional Mobility: Functional Mobility [place] Level: Functional Mobility/Gait: stand-by assist Assistive Device: Functional Mobility/Gait: gait belt Functional Mobility Distance: Distance needed for limited community mobility Functional Mobility Deficits: Activity tolerance, Balance, Decreased step length, Generalized weakness Functional Mobility Skilled Rationale: Verbal cues, Facilitate postural control Skilled Intervention/Details - Functional Mobility/Gait: cues for upright posture Outcome Score(s): CURRENT [facility] Daily Activity Inpatient Short Form Putting on/Taking Off Lower Body Clothin - A Little Assistance Bathin - A Little Assistance Toiletin - A Little Assistance Putting on/Taking Off Upper Body Clothin - No Assistance Groomin - No Assistance Eatin - No Assistance CURRENT [facility] Activity Raw Score: 21 CURRENT [facility] Activity Functional Limitation/Modifier: 32.79% Currently Impaired in Daily Activity - CJ Interventions: Assessment & Plan: Patient was admitted for FAYE and seen for therapy evaluation related to endurance, balance, functional mobility and activity tolerance necessary for safe ADL/IADL performance. Exam findings include impairments in: endurance. These impairments contribute to occupational performance limitations including bathing, dressing, grooming, toileting, functional mobility, ADL transfers, home management tasks. The following factors impact the plan of care: Past Medical History: Diagnosis Date Acute renal failure CAD (coronary artery disease) Cirrhosis Dialysis patient T, Th, Sa- Started 06/01/2018 End stage renal disease 06/01/2018 Essential hypertension, benign Hepatic encephalopathy History of blood transfusion Liver cirrhosis Past Surgical History: Procedure Laterality Date LIVER TRANSPLANT, ORTHOTOPIC N/A 04/12/2020 Laterality: N/A; Surgeon: LU Palma; Location: [facility] SAME DAY SURGERY MAIN OR KIDNEY TRANSPLANT W/O [place] NEPHRECTOMY N/A 04/12/2020 Laterality: N/A; Surgeon: LU Palma; Location: [facility] SAME DAY SURGERY MAIN OR OTHER SURGICAL 04/2018 Right chest dialysis cather- ANGIOPLASTY OF BRACHIOCEPHALIC TRUNK OR BRANCH WITH TRANSLUMINAL BALLOON PERCUTANEOUS FOR AVF OR GRA ANKLE SURGERY Right plate in ankle EXTRACTION TOOTH Patient will benefit from skilled occupational therapy to address these impairments, occupational performance limitations, and participation restrictions. Patient's rehab potential is: (no therapy warranted). Planned Therapy Interventions (OT Eval): (no therapy warranted) Patient Instruction/Education this session: Patient Instruction: role of ot, poc Plan for next session: d/c OT Acute OT Goals Notes from 05/16/2022 3:54 AM through 05/16/2022 3:54 PM No notes of this type exist for this encounter. Pt completed functional mobility necessary for limited community distances with SBA by discharge-Goal Met Evaluating Therapist: Sophie Montejo Additional Details: Co-evaluation/co-treatment performed?: Yes, simultaneous billable skilled care This co-treatment session performed between OT and PT was beneficial, necessary and provided distinct services in progressing this person's individual plan of care. Medical complexity with functional deficits that necessitate two skilled therapy disciplines working concurrently to optimize patient's progress towards each discipline's goals. I was assisted by Mel Norman for today's session. and I used facemask, protective eye shield, and gloves in today's patient interaction. OT Evaluation Complexity Occupational Profile and Client History: Moderate - expanded history Assessment of Occupational Performance: Low (1-3 performance deficits) Clinical Decision/Performance Deficits: Low (problem-focused assessments w/limited treatment options) Time In: 805 Time Out: 822 Total Visit Time: 17 minutes Total Treatment Time (skilled, billable minutes): 17 minutes Patient location at end of session: chair Alarms on at end of session: none Needs in reach. Upon discontinuation of Acute Care Occupational Therapy Services or patient discharge from the hospital this note represents the current Occupational Therapy Discharge Summary. Associated attestation - Mel Norman OT - 05/20/2022 7:00 AM EDT I, as the qualified practitioner, am present and in the treatment room for the entire session. The student participates in the delivery of services when the qualified practitioner (myself) is directing the service, making the skilled judgment, and is responsible for the assessment and treatment. This note was reviewed and edited as needed to better reflect the patient's clinical status and the treatment plan. Read and Co-signed by: Mel Norman OT, OTR/L License #: [id number] pager # [phone] 05/20/2022 Upon discontinuation of Acute Care Occupational Therapy Services or patient discharge from the hospital this note represents the current Occupational Therapy Discharge Summary. documented in this encounter [facility] 05-20-2022 Hospital course Narrative Discharge Summary Name: George Styles Age: 52 y.o. Birthday: 1970 Admit Date: 05/15/2022 3:51 PM Discharge Date: 05/20/22 Discharge Time: 11:52 AM Discharge Unit: Gen Med 4 Admission Information Admitting Physician: Daya Saldana MD Discharge Information Discharge Physician: Daya Saldana MD Problem List Active Hospital Problems Diagnosis FAYE (acute kidney injury) Resolved Hospital Problems No resolved problems to display. FURTHER RECOMMENDATIONS: 1. Follow up with IR and urology are scheduled DISCHARGE LETTER: Dear Doctors, I recently had the opportunity to care for George Styles during his recent hospital stay at [facility]. As you may know, George Styles, is a 52 y.o. male with a past medical history significant for alcoholic cirrhosis (alcohol), ESRD (Htn) s/p kidney transplant and liver transplant March 2020 who presented at the time of admission with kidney stone, obstruction, and FAYE. The following describes his hospital course. He was admitted for obstructing nephrolithiasis of his transplanted kidney. Urology, Transplant nephrology, and IR were consulted. IR placed a nephrostomy tube. His kidney function peaked at 8.08 and down trended at discharged to 1.10 which is his baseline. His immunosuppressants were initially helped but were restarted during admission. Additionally he was treated with ceftriaxone for 5 days for UTI. Losartan was held due to FAYE but restarted by discharge.His electrolytes were followed and stable by time of discharge. Medications for chronic conditions were continued unchanged. Physical Exam on the Date of Discharge: Vitals: 05/20/22 0851 BP: Pulse: Resp: 16 Temp: Wt Readings from Last 1 Encounters: 05/19/22 103.9 kg (229 lb 1.6 oz) Gen: NAD, well-appearing HENT: NCAT, EOMI, MMM Cardio: RRR, normal S1/S2, no murmur Resp: CTA b/l, no increased WOB GI: soft, NT, ND, normal BS MSK: no joint swelling or erythema Ext: warm and well-perfused, no LE edema Neuro: alert and oriented, moving all four extremities At the time of discharge the patient's mental status was alert and oriented. Diet was DIET REGULAR Upon discharge the patient's code status Full It has been my pleasure participating in this patient's care. Please contact me with any questions or concerns regarding his hospital stay. Sincerely, Nishant Gamez MD Dictated under attending physician Daya Saldana MD Division of Hospital Medicine p: [phone] f: [phone] CONSULTS DURING ADMISSION: IP CONSULT TO SURGERY - UROLOGY IP CONSULT TO NEPHROLOGY - TRANSPLANT (MEDICINE) IP CONSULT TO INTERVENTIONAL RADIOLOGY IP CONSULT TO PHYSICAL THERAPY IP CONSULT TO OCCUPATIONAL THERAPY IP CONSULT TO PHARMACY BEDSIDE DISCHARGE MED DELIVERY IMAGING / PROCEDURES / RESULTS: Should you require further information or copies of results or reports please contact Medical Information Management @ [phone] LABS AT TIME OF DISCHARGE: Lab Results Component Value Date SODIUM 144 05/20/2022 SODIUM 141 03/03/2022 POTASSIUM 4.4 05/20/2022 POTASSIUM 4.0 03/03/2022 MAGNESIUM 1.5 (L) 05/20/2022 MAGNESIUM 1.6 03/03/2022 BUN 18 05/20/2022 BUN 13.0 03/03/2022 CREATSERUM 1.10 05/20/2022 CREATSERUM 1.07 03/03/2022 CREATSERUM 5.05 (H) 11/19/2018 Lab Results Component Value Date WBC 6.31 05/20/2022 WBC 6.9 03/03/2022 HGB 12.3 (L) 05/20/2022 HGB 15.5 03/03/2022 PLATELET 234 05/20/2022 PLATELET 245 03/03/2022 INR 1.1 05/18/2022 INR 1.1 05/03/2020 Lab Results Component Value Date HGBA1C 5.6 08/16/2021 PATIENT'S MEDICAL HOME AT DISCHARGE: [facility] [address] / [place] [address]ICATIONS: Discharge Orders CT ABDOMEN/PELVIS WITHOUT CONTRAST AMB REFERRAL TO UROLOGY AMB REFERRAL TO INTERVENTIONAL RADIOLOGY Current Outpatient Meds: Medication List for when you go home START taking these medications Magnesium Oxide 500 MG TABS Take 2 tablets by mouth daily. oxyCODONE 5 MG TABS Take 1 tablet by mouth every 4 hours as needed for Severe Pain or Moderate Pain for up to 5 doses. Commonly known as: ROXICODONE For diagnoses: Hydronephrosis due to obstruction of ureteral orifice CONTINUE taking these medications allopurinol 100 MG TABS take 2 tablets by mouth once daily Commonly known as: ZYLOPRIM For diagnoses: Abnormal blood chemistry amLODIPine 5 MG TABS Take 5 mg by mouth daily. Commonly known as: NORVASC Aspirin Low Dose 81 MG CHEW chewable tablet Chew 1 tablet daily. Last refill from our office. Medication can be purchased over the counter going forward. Generic drug: aspirin atorvastatin 20 MG TABS Take 1 tablet by mouth at bedtime. Further refills to be provided by PCP's office. Commonly known as: LIPITOR camphor-menthol 0.5-0.5 % LOTN Apply 1 Application topically as needed. Commonly known as: SARNA faMOTIdine 20 MG TABS Take 20 mg by mouth 2 times daily. Commonly known as: PEPCID gabapentin 100 MG CAPS Take 400 mg by mouth at bedtime. Take daily at bedtime for foot and ankle pain. Commonly known as: NEURONTIN losartan 50 MG TABS take 1 tablet by mouth twice a day Commonly known as: COZAAR melatonin 3 MG TABS Take 3 mg by mouth at bedtime as needed for Insomnia. mycophenolate sodium [address] Take 2 tablets by mouth every 12 hours. Commonly known as: MYFORTIC For diagnoses: S/P liver transplant, -donor kidney transplant recipient ondansetron 4 MG ODT tablet Dissolve 1 tablet on tongue every 6 hours as needed for nausea or vomiting. Commonly known as: Zofran ODT ondansetron 4 MG TABS Take 4 mg by mouth every 8 hours as needed for Nausea / Vomiting. Commonly known as: ZOFRAN polyethylene glycol 17 g PACK packet Take 17 g by mouth daily. Commonly known as: MIRALAX tacrolimus 0.5 MG CAPS Take 2 capsules by mouth every 12 hours. Doctor's comments: [facility] Commonly known as: PROGRAF For diagnoses: -donor kidney transplant recipient, Liver transplant recipient Tamsulosin HCl 0.4 MG CAPS Take 0.4 mg by mouth daily. Commonly known as: FLOMAX STOP taking these medications FLUoxetine 40 MG CAPS Commonly known as: PROZAC multivitamin w/ minerals TABS Stool Softener 100 MG CAPS Generic drug: docusate Follow-up: Zuly Bruno, LIFE INSURANCE SPECIALIST [address] [facility] [phone] Schedule an appointment as soon as possible for a visit Follow-up appointment with your, primary care physician within 7-10 days, after discharge. [address] [facility] [phone] Follow up The department of urology will call you with a follow up appointment. [facility] [address] 11th Floor [facility] [phone] Follow up Please make a follow up appointment with Dr. Latham's office. Upcoming Appointments (up to five)-Some appointments for Medical Center outpatient clinics or diagnostic testing locations are not displayed below Provider Department Dept Phone 06/04/2022 10:40 AM [facility] Interventional Radiology Clinic [phone] 06/27/2022 1:30 PM [facility] Department of Radiology Arrive at: Arrive to First Floor Registration Desk [phone] 06/27/2022 2:40 PM Ryan Ye[facility] Arrive at: Arrive to 2nd Floor, Registration [id number] 10/31/2022 1:00 PM Steve Latham [facility] Trans[facility] [phone] 01/16/2023 9:40 AM TRANSPLANT HEPATOLOGY , [facility] Transplant [facility] [phone] Associated attestation - Daya Saldana MD - 05/20/2022 5:24 PM EDT Attending attestation: I have independently seen, interviewed, and examined the patient. I have reviewed the medical record including vital signs, labs, imaging, ECGs when applicable. I agree with the history, physical exam findings, and medical decision making as outlined by the resident with the following additions/changes. Problem list: severe obstructive FAYE of transplanted kidney, improving after placement of nephrostomy tube renal and liver tx recipient 2019 nephrolithiasis in renal graft at level of graft ureteropelvic junction hx of CAD Plan: Hospitalized with acute abdominal and flank pain and elevated creatinine. Once the outside hospital ED where a Myers was placed without significant urine output. CT imaging there showed calcification in the transplant kidney with some hydronephrosis. He was transferred here and started on ceftriaxone empirically for infection. His creatinine mauro dramatically to 8.0 on 05/17. He underwent percutaneous nephrostomy tube placement of the transplant kidney with significant urine output resulting and his renal function improved quickly after this. He did pass a pea sized stone on 05/18 and this was sent to the lab for analysis. Results are pending at discharge. 2 urine cultures did not grow any bacteria, and on discussion with the outside hospital ED, the urinalysis was not consistent with infection. He received 5 doses of ceftriaxone but we did not continue antibiotics at discharge due to lack of evidence of infection. He underwent a nephrostogram on day of discharge. he will follow up with Urology and Interventional Radiology. He was educated on nephrostomy tube care and discharge with supplemental magnesium. 35 minutes were spent on discharge planning including counseling and coordination of care. Daya Saldana MD (Peggy) Division of Hospital Medicine Pager [phone] documented in this encounter [facility] 05-20-2022 Hospital Discharge instructions Giulia Cavazos RN - 05/20/2022 7:43 AM EDT Images from the original note were not included. Home Care for Your Nephrostomy Catheter ? Take your usual medicines when you get back home. ? If you take metformin (Glucophage, Glucophage XR) or glyburide/metformin (Glucovance) for diabetes, do not take that medicine for 48 hours after the catheter placement. This is because it could react badly with the dye used to during the catheter placement. The dye clears from your body in a day or two. Drinking water helps to rid the dye from your body. Restart this medicine on the third day after the procedure. Skin care and Showering Keep the drain site dry. You may take a shower 48 hours after the drain is placed or changed. Before you shower, cover the drain dressing and the skin around the site with plastic wrap taped to your skin. You must cover the site for 14 days after the first drain is placed. You do not have to cover the site following tube changes. After 14 days, if the site has healed, you can shower without the dressing and plastic wrap. After your shower, use a clean washcloth and liquid antibacterial soap like Dial with water to clean the site. Then rinse the site well with plain water. Pat the drain site gently with a towel to dry. Bathing in a tub, using a hot tub or swimming is not recommended as long as you have the drain in place. Call or go to the nearest Emergency Room if, in the first 4 to 8 hours after your catheter is put in, you have: ? Active bleeding at the catheter site that does not stop after you put finger pressure on it ? Increasing pain or swelling at or around the catheter site ? Fever of 101 degrees Fahrenheit (38 degrees Celsius) or greater with or without chills Dressing change Keep the skin around your drain clean and covered with a 4x4 gauze dressing. The gauze dressing should be changed every other day. You may need to change it more often if it becomes wet, loose, or dirty. Steps 1. Gather your supplies. ? 2 pairs of non-sterile gloves ? Cotton swabs or clean washcloths ? Antibacterial soap ? 4x4 gauze split dressings (package of two) ? Paper tape if gauze dressing is used ? Small plastic garbage bag 2. Wash your hands with soap and water for 15 seconds. Rinse and towel dry. 3. Put on the non-sterile gloves. 4. Carefully remove the old dressing to avoid dislodging the catheter. Note soreness, redness, drainage or odor at the site where the catheter goes through the skin. These signs may indicate infection. If any of these signs are noted, clean the skin site and change the dressing more often for one week. If the signs do not improve right away, call your doctor. 5. Remove the non-sterile gloves and wash your hands again. Then put on the other clean pair of gloves. 6. Clean the skin around the catheter (exit site) with a cotton swab or clean washcloth wet with liquid antibacterial soap and water. Use a circular motion moving outward from the center to about 3 inches. Repeat this step with the second swab or washcloth, and more if needed to remove any crusting. Let the area air dry. Do not fan it to speed the drying because that will put more germs near the site. If the antibacterial soap irritates your skin, use sterile saline to clean the site. 7. Apply one sterile 4x4 gauze pad around the tube. Be careful not to touch the pad where it will be placed over the catheter. 8. Use a second gauze dressing, placed over the first one to cover the tube. 9. Tape over the gauze pad with the paper tape as shown. Be sure to pinch the tape around the tube. 10.Throw the old dressing, gloves, used swabs and wrappings in the plastic bag. Remove the gloves and put them in the bag. Tie the bag shut and put it in a trash can. 11.Wash your hands with soap and warm water. Rinse and towel dry. Care of Your Drainage Bag ? Empty your drainage bag as often as needed when it is about 2/3 full. Turn the blue knob at the bottom of the bag and drain it into a measuring container. Keep track of the amount of drainage each day. ? You should not clean the drainage bag. You will be sent home with an extra drainage bag to use if there is a leak in the bag or the bag or tubing gets damaged. Special Precautions and Complications ? Keep the drainage bag below the level of your kidneys at all times, to prevent a back flow of urine into the kidneys. ? To prevent sludge and calculi or stones from forming, drink 6 to 8 glasses (8-ounce glass) of fluids a day. ? Keep your nephrostomy catheter drainage bag closed to reduce risk of infection. ? Keep the nephrostomy catheter and drainage bag tubing free of twists, kinks or leaks. When to Call Your Doctor or Medical Team Call right away at Interventional Radiology at for these problems: ? Sudden decrease in the amount of drainage with discomfort at the catheter site ? Blood in or around your catheter ? Fever greater than 101 degrees F ? Persistent blood in the urine ? Nausea and vomiting ? Chills ? Urine that is cloudy or has a strong odor ? Back pain ? Catheter becomes dislodged or broken ? Catheter begins to leak Interventional Radiology Contact Information Keep your appointments to have your nephrostomy catheter changed. Nephrostomy tubes that remain in more than 8-12 weeks need to be changed by Interventional Radiology. Please call [phone] to schedule this appointment and with any questions or concerns you may have regarding the nephrostomy tube. If you have questions or concerns, please call Interventional Radiology at SOMEONE FROM INTERVENTIONAL RADIOLOGY WILL CALL YOU FOR A FOLLOW UP IN THE IR CLINIC Giulia Cavazos RN Nurse Coordinator Interventional Radiology Interventional Radiology Outpatient scheduling documented in this encounter [facility] 05-19-2022 Note Formatting of this n ote might be different from the original. Afternoon assessment completed at this time. No changes to previously charted assessment. Straining UOP. Monitoring electrolytes. VSS. Pain controlled with current regimen. Rn to continue to monitor. Problem: Pain, Acute (Adult) Goal: Identify Related Risk Factors and Signs and Symptoms Description: Related risk factors and signs and symptoms are identified upon initiation of Human Response Clinical Practice Guideline (CPG) Outcome: Ongoing Goal: Acceptable Pain Control/Comfort Level Description: Patient will demonstrate the desired outcomes by discharge/transition of care. Outcome: Ongoing Problem: Patient Care Overview Goal: Plan of Care Review Outcome: Ongoing Goal: Individualization & Mutuality Outcome: Ongoing Goal: Discharge Needs Assessment Outcome: Ongoing Goal: Interdisciplinary Rounds/Family Conf Outcome: Ongoing [facility] 05-19-2022 Note Formatting of this n ote might be different from the original. Discussed with [facility] re: possible urine culture performed at their facility. However, based on urinalysis completed at that time, which was only notable for hematuria, culture was not performed and sample no longer feasible for culture. Liam Julian MD Internal Medicine/Pediatrics, PGY-3 [facility] 05-18-2022 Note Formatting of this n ote might be different from the original. 2002: IHIS message sent to Dr Justyn Wen, regarding patient passing a small kidney stone, about the size of pea. MD notified. Stone left in strainer in pt bathroom. 0500: IHIS message sent to Dr Justyn Wen, regarding pt BP 174/77. [facility] 05-18-2022 Note Formatting of this n ote might be different from the original. Problem: Patient Care Overview Goal: Plan of Care Review Outcome: Ongoing Goal: Individualization & Mutuality Outcome: Ongoing Goal: Discharge Needs Assessment Outcome: Ongoing Goal: Interdisciplinary Rounds/Family Conf Outcome: Not Met This Shift Problem: Pain, Acute (Adult) Goal: Identify Related Risk Factors and Signs and Symptoms Description: Related risk factors and signs and symptoms are identified upon initiation of Human Response Clinical Practice Guideline (CPG) Outcome: Ongoing Goal: Acceptable Pain Control/Comfort Level Description: Patient will demonstrate the desired outcomes by discharge/transition of care. Outcome: Ongoing [facility] 05-18-2022 Note Formatting of this n ote is different from the original. Urology Plan of Care Note Pt is s/p PNT placement by IR into txp kidney. Please monitor for post-obstructive diuresis syndrome as below or if preferred can discuss with nephrology. Please monitor for post-obstructive diuresis. Post-obstructive diuresis should be expected if the patient voids over 1L in an 8h shift (not including the initial volume out from the patient's bladder on catheter placement). If post-obstructive diuresis is present: > Please make PO fluids freely available to patient and encourage the patient to drink to thirst > Please record PO and urine output Q4H > Please check chem10 Q8H and replace Ca>8, K>4, Phos>3, Mg>2 > Continue MIVF at 125/hr > Every 8 hours, divide the patient's urine output by 2, and administer 1/2NS as a bolus in the derived amount minus IV and PO fluids received in that shift. If the patient becomes hyponatremic, NS should instead be used. [facility] Work Phone: 05-18-2022 Note Formatting of this n ote might be different from the original. IHIS chat sent to Dr Tray Quintana, regarding pt BP 190/86. Pt complaining of pain at site of neph tube. PRN pain medication given per order parameters. Pt denies any other symptoms at this time. MD notified and aware. [facility] 05-17-2022 Note Formatting of this n ote might be different from the original. At 0900, I rounded with Dr. Gamez and Dr. Saldana. At that time I checked Mr. Styles's vital signs. His pulse oximeter was low and he was tachypneic. Verbal order at bedside to put nasal cannula on starting at 2liters oxygen and to provide incentive spirometer. [facility] 05-17-2022 Note Formatting of this n ote might be different from the original. Interventional Radiology procedure completed with IR Attending Dr. Heart / Dr. Le of percutaneous right nephrostomy tube placement transplant kidney 10.2 Fr Griffin acosta Pt tolerated procedure with moderate sedation local numbing agent . Transported to inpatient after phase I recovery. Post procedure orders in place. [facility] 05-16-2022 Note Formatting of this n ote might be different from the original. At 1530, I text chavad Kaitlynn Gomez MD that patient has only had 25ml urine output in myers this afternoon. [facility] 05-16-2022 Note Formatting of this n ote is different from the original. Urology Plan of Care Mr. Styles is a 52 y.o. 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 Urology consulted for new 6 mm calcification in the right transplant lower pole vs possible UPJ, with associated right renal edema, no clear hydronephrosis and unable to fully trace the ureteral course. Also multiple calcifications along the transplant hilum and inferiorly that are not clearly within the collecting system. Unclear if stone is causing obstruction or if hydronephrosis is present. Clinical presentation of new LUTS and +UA suspicious for UTI. Cr increased significant this morning to 5.23 from 2.85 (baseline 1). Though there is some uncertainty whether his transplant is obstructed, given the rapid rise in Cr and minimal UOP, recommend urgent placement of transplant nephrostomy tube with IR. Catheter flushed easily on rounds, appears to be draining well. Plan: -IR Consult for transplant nephrostomy tube. -Obtain urine cx and empirically treat for UTI then based on speciation/sensitivities -Would trend renal function: recommend transplant medicine consultation to evaluate other acute causes of renal injury - Tentative followup plan will be repeat CT in about 1 month with urology followup, urology will arrange. - Urology will continue to follow peripherally, please reach out with questions. Evan Byrd MD Urology, PGY-2 #[id number] [facility] Work Phone: 05-16-2022 Note Formatting of this n ote might be different from the original. I certify that this patient requires inpatient services at this time. I anticipate the expected length of stay will include at least two midnights. Inpatient services are due to the following medical concerns Obstructive kidney stone. Plans for post hospitalization care will be discharge to home. [facility] 05-16-2022 Consult note Associated Order (s): IP CONSULT TO NEPHROLOGY - TRANSPLANT (MEDICINE) I saw George Styles at the [facility] on 05/16/2022. Reason for Consultation: kidney stone and FAYE; LK transplant 2019 on tac/cellcept. Held them on admission last doses evening of 05/13 History of Present Illness: George Styles is a 52 y.o. male who we have been consulted to see on 05/16/2022. 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 His post transplant course was complicated by delayed graft function and he required iHD until 04/26/2020. Last seen in clinic 12/2021 and noted to have good graft function at that time. Baseline creatinine 1.1-1.3. On cellcept 360mg BID and tacrolimus 1mg BID. He presents with renal stone and FAYE. Patient noticed pain and hematuria last Thursday, went to OSH ED where he was given flomax and sent home. [place] better but noticed more pain and decreased urine output at home on Thursday, so returned to the hospital. CT a/p at OSH with new 6mm calcification in the right transplant lower pole vs UPJ and mild right renal edema, no clear hydronephrosis. Urology has been consulted here and recommended antibiotics for potential UTI and hold intervention on stone for now. His serum creat on admission was 2.85, it's 5.23 today. Patient has myers with minimal output this AM. He reports not taking his IS since Thursday when he went back to the hospital. Tac level this morning 4.1. Currently with myers and no urine output. No abd pain or fevers. No prior renal stones, compliant with meds Past Medical History: Diagnosis Date Acute renal failure CAD (coronary artery disease) Cirrhosis Dialysis patient T, Th, Sa- Started 06/01/2018 End stage renal disease 06/01/2018 Essential hypertension, benign Hepatic encephalopathy History of blood transfusion Liver cirrhosis Medications Prior to Admission Medication Sig Dispense Refill Last Dose allopurinol 100 MG tablet take 2 tablets by mouth once daily 180 tablet 3 05/14/2022 at Unknown time amLODIPine 5 MG tablet Take 5 mg by mouth daily. 05/14/2022 at Unknown time aspirin 81 MG Chew Tab chewable tablet Chew 1 tablet daily. Last refill from our office. Medication can be purchased over the counter going forward. 30 tablet 0 Past Week at Unknown time atorvastatin 20 MG tablet Take 1 tablet by mouth at bedtime. Further refills to be provided by PCP's office. 30 tablet 3 05/14/2022 at Unknown time docusate 100 MG capsule Take 2 capsules by mouth every 12 hours. 120 capsule 0 05/14/2022 at Unknown time faMOTIdine 20 MG tablet Take 20 mg by mouth 2 times daily. 05/14/2022 at Unknown time gabapentin 100 MG capsule Take 400 mg by mouth at bedtime. Take daily at bedtime for foot and ankle pain. 05/14/2022 at Unknown time losartan 50 MG tablet take 1 tablet by mouth twice a day 60 tablet 11 05/14/2022 at Unknown time melatonin 3 MG tablet Take 3 mg by mouth at bedtime as needed for Insomnia. Past Week at Unknown time multivitamin w/ minerals tablet Take 1 tablet by mouth daily. Further refills to be provided by PCP's office. 30 tablet 3 05/14/2022 at Unknown time mycophenolate sodium (MYFORTIC) [address] Take 2 tablets by mouth every 12 hours. 360 tablet 1 05/14/2022 at Unknown time ondansetron (Zofran ODT) 4 MG Tab Dispersible tablet Dissolve 1 tablet on tongue every 6 hours as needed for nausea or vomiting. 20 tablet 0 Past Month at Unknown time ondansetron 4 MG tablet Take 4 mg by mouth every 8 hours as needed for Nausea / Vomiting. Past Month at Unknown time polyethylene glycol 17 g Pack packet Take 17 g by mouth daily. 05/14/2022 at Unknown time tacrolimus (PROGRAF) 0.5 MG capsule Take 2 capsules by mouth every 12 hours. 360 capsule 1 05/14/2022 at Unknown time Tamsulosin HCl 0.4 MG capsule Take 0.4 mg by mouth daily. 05/14/2022 at Unknown time camphor-menthol 0.5-0.5 % Lotion Apply 1 Application topically as needed. 222 mL 0 More than a month at Unknown time FLUoxetine 40 MG capsule Take 40 mg by mouth daily. More than a month at Unknown time Scheduled Meds: allopurinol 200 mg Oral Daily amLODIPine 5 mg Oral Daily aspirin 81 mg Oral Daily atorvastatin 20 mg Oral QHS cefTRIAXone (ROCEPHIN) IVPB 2 g Intravenous Q24H faMOTIdine 20 mg Oral Daily gabapentin 400 mg Oral QHS heparin 5,000 Units Subcutaneous Q12H lactated ringers 1,000 mL Intravenous Once [Held by provider] losartan 50 mg Oral BID [Held by provider] mycophenolate sodium 360 mg Oral Q12HNS polyethylene glycol 17 g Oral Q12H senna 8.6 mg Oral Daily [Held by provider] tacrolimus 1 mg Oral Q12H Tamsulosin HCl 0.4 mg Oral Daily IV Infusions: Allergies Allergen Reactions Shellfish-Derived Products Swelling Patient with lip and tongue swelling. Family History Problem Relation Age of Onset Heart Disease - Other Mother Hypertension Mother Stroke Mother Diabetes Mother Heart Disease - Other Father Hypertension Father Stroke Father Diabetes Father Heart Disease - Other Sister Heart Disease - Other Brother Diabetes Brother Hypertension Brother Diabetes Maternal Aunt Breast Cancer Paternal Aunt Hypertension Paternal Aunt Heart Disease - Other Maternal Grandmother Diabetes Maternal Grandmother Lung Cancer Maternal Grandmother Hypertension Maternal Grandmother Heart Disease - Other Maternal Grandfather Hypertension Maternal Grandfather Lung Cancer Maternal Grandfather Heart Disease - Other Paternal Grandmother Social History Tobacco Use Smoking status: Former Smoker Packs/day: 1.00 Years: 20.00 Pack years: 20.00 Types: Cigarettes Start date: 07/19/1988 Quit date: 05/14/2018 Years since quittin.0 Smokeless tobacco: Former User Types: Chew Quit date: 07/19/1994 Substance Use Topics Alcohol use: Not Currently Alcohol/week: 2.0 standard drinks Types: 2 Cans of beer per week Comment: stopped 05/14/2018 Drug use: No Review of Systems: General ROS: As in the HPI, otherwise remainder of ROS is negative Physical Examination: Vital Signs Temp: [98.3 F (36.8 C)-99.1 F (37.3 C)] 99.1 F (37.3 C) Pulse (Heart Rate): [73-97] 84 Resp Rate: [16-18] 16 BP: (119-147)/(58-74) 139/66 O2 Sat (%): [90 %-96 %] 92 % Weight: [103.9 kg (229 lb 1.6 oz)] 103.9 kg (229 lb 1.6 oz) I/O last 3 completed shifts: In: 250 [P.O.:250] Out: 55 [Urine:55] No intake/output data recorded. BP 139/66 (BP Location: Right arm, BP Position: Lying) Pulse 84 Temp 99.1 F (37.3 C) (Oral) Resp 16 Ht 1.702 m (5' 7 ) Wt 103.9 kg (229 lb 1.6 oz) SpO2 92% BMI 35.88 kg/m Smoking Status Former Smoker Gen: NAD, well-appearing HENT: EOMI, MMM, no oral lesions nc at perrl Neck supple jvp 7cm Cardio: RRR, no m/r/g, S1 and S2 normal pmi nondisplaced Resp: clear to auscultation and percussion bilaterall, no w/r/r, no increased WOB GI: soft, non-tender, non-distended, normal BS no hsm Ext: warm and well-perfused, 1+ LE edema 2+ pulses Neuro: alert and oriented, moving all four extremities nonfocal no myoclonus Skin: warm and dry, no rashes or lesions Relevant Data: Lab Results Component Value Date SODIUM 140 05/16/2022 POTASSIUM 4.6 05/16/2022 CHLORIDE 106 05/16/2022 CO2 22 05/16/2022 BUN 42 (H) 05/16/2022 CREATSERUM 5.23 (H) 05/16/2022 GLUCOSE 116 (H) 05/16/2022 Lab Results Component Value Date CALCIUM 8.8 03/03/2022 PHOSPHORUS 3.4 03/03/2022 Lab Results Component Value Date WBC 12.55 (H) 05/16/2022 HGB 14.7 05/16/2022 HCT 46.5 05/16/2022 PLATELET 188 05/16/2022 MCV 89.6 05/16/2022 Lab Results Component Value Date SPGRVTYUR 1.010 05/15/2022 GLUCOSEURINE 100 mg/dL (A) 05/15/2022 KETONESURINE Negative 05/15/2022 BLOODURINE Large (A) 05/15/2022 NITRITESURIN Negative 05/15/2022 LEUKOCESTUR Large (A) 05/15/2022 WBCURINE 10-20 (A) 05/15/2022 RBCURINE >20 (A) 05/15/2022 BACTERIAURIN ABSENT 05/15/2022 Lab Results Component Value Date CREATSERUM 5.23 (H) 05/16/2022 CREATSERUM 2.85 (H) 05/15/2022 CREATSERUM 1.07 03/03/2022 CREATSERUM 1.05 12/30/2021 CREATSERUM 1.11 12/02/2021 CREATSERUM 5.05 (H) 11/19/2018 Assessment/Plan: In summary, George Styles is a 52 y.o. male who we have been consulted to see on 05/16/2022. 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 He presents with renal stone and FAYE. 1. Immunosuppression: Hold tacrolimus, restart cellcept. 2. Renal function: Worsening given creatinine trends. High suspicion for nephrolitiasis as etiology for acute rise in serum creatinine and oliguria. Even if small stone, it can completely obstruct the tract, especially if debri and mucous around that might not be seen in CT. Recommend reaching back to urology to see patient again today. Recommend nephrostogram and neph tube placement to drain the transplant kidney. 3. Hypertension: Stable BP here so far 4. Anemia: Hemoglobin at goal. Maria De Jesus Pollock MD, PhD Attending I saw and independently evaluated the patient on 05/16/22. I have discussed the case with the resident and formulated the plan of care with them and agree with resident s findings, examination and plan as documented in the resident s note Due to COVID emergency and in an attempt to reduce risk of viral contraction and transmission, patient may not have been fully independently examined and use of other providers assessments were made in conjunction with my assessment to reach the best assessment and recommendations. Renal tx with renal calculi and arf Concern for obstruction of solitary kidney. Would discuss with but needs urgent nephrostogram with poss neph tube if stone in ureter. Hold tacro Agree with urine/blood culture and broad spectrum abx No immediate need for HD today but if obstruction is present and not corrected will need shortly. Hold allopurinol given ARF Agree with holding arb and can give clonidine as needed for BP > 140/x Maxi Pringle MD Associated attestation - Maxi Pringle MD - 05/16/2022 4:56 PM EDT Attending I saw and independently evaluated the patient on 05/16/22. I have discussed the case with the resident and formulated the plan of care with them and agree with resident s findings, examination and plan as documented in the resident s note Due to COVID emergency and in an attempt to reduce risk of viral contraction and transmission, patient may not have been fully independently examined and use of other providers assessments were made in conjunction with my assessment to reach the best assessment and recommendations. Maxi Pringle MD [facility] Work Phone: 05-16-2022 Consult note Associated Order (s): IP CONSULT TO NEPHROLOGY - TRANSPLANT (MEDICINE) I saw George Styles at the [facility] on 05/16/2022. Reason for Consultation: kidney stone and FAYE; LK transplant 2019 on tac/cellcept. Held them on admission last doses evening of 05/13 History of Present Illness: George Styles is a 52 y.o. male who we have been consulted to see on 05/16/2022. 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 His post transplant course was complicated by delayed graft function and he required iHD until 04/26/2020. Last seen in clinic 12/2021 and noted to have good graft function at that time. Baseline creatinine 1.1-1.3. On cellcept 360mg BID and tacrolimus 1mg BID. He presents with renal stone and FAYE. Patient noticed pain and hematuria last Thursday, went to OSH ED where he was given flomax and sent home. [place] better but noticed more pain and decreased urine output at home on Thursday, so returned to the hospital. CT a/p at OSH with new 6mm calcification in the right transplant lower pole vs UPJ and mild right renal edema, no clear hydronephrosis. Urology has been consulted here and recommended antibiotics for potential UTI and hold intervention on stone for now. His serum creat on admission was 2.85, it's 5.23 today. Patient has myers with minimal output this AM. He reports not taking his IS since Thursday when he went back to the hospital. Tac level this morning 4.1. Currently with myers and no urine output. No abd pain or fevers. No prior renal stones, compliant with meds Past Medical History: Diagnosis Date Acute renal failure CAD (coronary artery disease) Cirrhosis Dialysis patient T, Th, Sa- Started 06/01/2018 End stage renal disease 06/01/2018 Essential hypertension, benign Hepatic encephalopathy History of blood transfusion Liver cirrhosis Medications Prior to Admission Medication Sig Dispense Refill Last Dose allopurinol 100 MG tablet take 2 tablets by mouth once daily 180 tablet 3 05/14/2022 at Unknown time amLODIPine 5 MG tablet Take 5 mg by mouth daily. 05/14/2022 at Unknown time aspirin 81 MG Chew Tab chewable tablet Chew 1 tablet daily. Last refill from our office. Medication can be purchased over the counter going forward. 30 tablet 0 Past Week at Unknown time atorvastatin 20 MG tablet Take 1 tablet by mouth at bedtime. Further refills to be provided by PCP's office. 30 tablet 3 05/14/2022 at Unknown time docusate 100 MG capsule Take 2 capsules by mouth every 12 hours. 120 capsule 0 05/14/2022 at Unknown time faMOTIdine 20 MG tablet Take 20 mg by mouth 2 times daily. 05/14/2022 at Unknown time gabapentin 100 MG capsule Take 400 mg by mouth at bedtime. Take daily at bedtime for foot and ankle pain. 05/14/2022 at Unknown time losartan 50 MG tablet take 1 tablet by mouth twice a day 60 tablet 11 05/14/2022 at Unknown time melatonin 3 MG tablet Take 3 mg by mouth at bedtime as needed for Insomnia. Past Week at Unknown time multivitamin w/ minerals tablet Take 1 tablet by mouth daily. Further refills to be provided by PCP's office. 30 tablet 3 05/14/2022 at Unknown time mycophenolate sodium (MYFORTIC) [address] Take 2 tablets by mouth every 12 hours. 360 tablet 1 05/14/2022 at Unknown time ondansetron (Zofran ODT) 4 MG Tab Dispersible tablet Dissolve 1 tablet on tongue every 6 hours as needed for nausea or vomiting. 20 tablet 0 Past Month at Unknown time ondansetron 4 MG tablet Take 4 mg by mouth every 8 hours as needed for Nausea / Vomiting. Past Month at Unknown time polyethylene glycol 17 g Pack packet Take 17 g by mouth daily. 05/14/2022 at Unknown time tacrolimus (PROGRAF) 0.5 MG capsule Take 2 capsules by mouth every 12 hours. 360 capsule 1 05/14/2022 at Unknown time Tamsulosin HCl 0.4 MG capsule Take 0.4 mg by mouth daily. 05/14/2022 at Unknown time camphor-menthol 0.5-0.5 % Lotion Apply 1 Application topically as needed. 222 mL 0 More than a month at Unknown time FLUoxetine 40 MG capsule Take 40 mg by mouth daily. More than a month at Unknown time Scheduled Meds: allopurinol 200 mg Oral Daily amLODIPine 5 mg Oral Daily aspirin 81 mg Oral Daily atorvastatin 20 mg Oral QHS cefTRIAXone (ROCEPHIN) IVPB 2 g Intravenous Q24H faMOTIdine 20 mg Oral Daily gabapentin 400 mg Oral QHS heparin 5,000 Units Subcutaneous Q12H lactated ringers 1,000 mL Intravenous Once [Held by provider] losartan 50 mg Oral BID [Held by provider] mycophenolate sodium 360 mg Oral Q12HNS polyethylene glycol 17 g Oral Q12H senna 8.6 mg Oral Daily [Held by provider] tacrolimus 1 mg Oral Q12H Tamsulosin HCl 0.4 mg Oral Daily IV Infusions: Allergies Allergen Reactions Shellfish-Derived Products Swelling Patient with lip and tongue swelling. Family History Problem Relation Age of Onset Heart Disease - Other Mother Hypertension Mother Stroke Mother Diabetes Mother Heart Disease - Other Father Hypertension Father Stroke Father Diabetes Father Heart Disease - Other Sister Heart Disease - Other Brother Diabetes Brother Hypertension Brother Diabetes Maternal Aunt Breast Cancer Paternal Aunt Hypertension Paternal Aunt Heart Disease - Other Maternal Grandmother Diabetes Maternal Grandmother Lung Cancer Maternal Grandmother Hypertension Maternal Grandmother Heart Disease - Other Maternal Grandfather Hypertension Maternal Grandfather Lung Cancer Maternal Grandfather Heart Disease - Other Paternal Grandmother Social History Tobacco Use Smoking status: Former Smoker Packs/day: 1.00 Years: 20.00 Pack years: 20.00 Types: Cigarettes Start date: 07/19/1988 Quit date: 05/14/2018 Years since quittin.0 Smokeless tobacco: Former User Types: Chew Quit date: 07/19/1994 Substance Use Topics Alcohol use: Not Currently Alcohol/week: 2.0 standard drinks Types: 2 Cans of beer per week Comment: stopped 05/14/2018 Drug use: No Review of Systems: General ROS: As in the HPI, otherwise remainder of ROS is negative Physical Examination: Vital Signs Temp: [98.3 F (36.8 C)-99.1 F (37.3 C)] 99.1 F (37.3 C) Pulse (Heart Rate): [73-97] 84 Resp Rate: [16-18] 16 BP: (119-147)/(58-74) 139/66 O2 Sat (%): [90 %-96 %] 92 % Weight: [103.9 kg (229 lb 1.6 oz)] 103.9 kg (229 lb 1.6 oz) I/O last 3 completed shifts: In: 250 [P.O.:250] Out: 55 [Urine:55] No intake/output data recorded. BP 139/66 (BP Location: Right arm, BP Position: Lying) Pulse 84 Temp 99.1 F (37.3 C) (Oral) Resp 16 Ht 1.702 m (5' 7 ) Wt 103.9 kg (229 lb 1.6 oz) SpO2 92% BMI 35.88 kg/m Smoking Status Former Smoker Gen: NAD, well-appearing HENT: EOMI, MMM, no oral lesions nc at perrl Neck supple jvp 7cm Cardio: RRR, no m/r/g, S1 and S2 normal pmi nondisplaced Resp: clear to auscultation and percussion bilaterall, no w/r/r, no increased WOB GI: soft, non-tender, non-distended, normal BS no hsm Ext: warm and well-perfused, 1+ LE edema 2+ pulses Neuro: alert and oriented, moving all four extremities nonfocal no myoclonus Skin: warm and dry, no rashes or lesions Relevant Data: Lab Results Component Value Date SODIUM 140 05/16/2022 POTASSIUM 4.6 05/16/2022 CHLORIDE 106 05/16/2022 CO2 22 05/16/2022 BUN 42 (H) 05/16/2022 CREATSERUM 5.23 (H) 05/16/2022 GLUCOSE 116 (H) 05/16/2022 Lab Results Component Value Date CALCIUM 8.8 03/03/2022 PHOSPHORUS 3.4 03/03/2022 Lab Results Component Value Date WBC 12.55 (H) 05/16/2022 HGB 14.7 05/16/2022 HCT 46.5 05/16/2022 PLATELET 188 05/16/2022 MCV 89.6 05/16/2022 Lab Results Component Value Date SPGRVTYUR 1.010 05/15/2022 GLUCOSEURINE 100 mg/dL (A) 05/15/2022 KETONESURINE Negative 05/15/2022 BLOODURINE Large (A) 05/15/2022 NITRITESURIN Negative 05/15/2022 LEUKOCESTUR Large (A) 05/15/2022 WBCURINE 10-20 (A) 05/15/2022 RBCURINE >20 (A) 05/15/2022 BACTERIAURIN ABSENT 05/15/2022 Lab Results Component Value Date CREATSERUM 5.23 (H) 05/16/2022 CREATSERUM 2.85 (H) 05/15/2022 CREATSERUM 1.07 03/03/2022 CREATSERUM 1.05 12/30/2021 CREATSERUM 1.11 12/02/2021 CREATSERUM 5.05 (H) 11/19/2018 Assessment/Plan: In summary, George Styles is a 52 y.o. male who we have been consulted to see on 05/16/2022. 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 He presents with renal stone and FAYE. 1. Immunosuppression: Hold tacrolimus, restart cellcept. 2. Renal function: Worsening given creatinine trends. High suspicion for nephrolitiasis as etiology for acute rise in serum creatinine and oliguria. Even if small stone, it can completely obstruct the tract, especially if debri and mucous around that might not be seen in CT. Recommend reaching back to urology to see patient again today. Recommend nephrostogram and neph tube placement to drain the transplant kidney. 3. Hypertension: Stable BP here so far 4. Anemia: Hemoglobin at goal. Maria De Jesus Pollock MD, PhD Attending I saw and independently evaluated the patient on 05/16/22. I have discussed the case with the resident and formulated the plan of care with them and agree with resident s findings, examination and plan as documented in the resident s note Due to COVID emergency and in an attempt to reduce risk of viral contraction and transmission, patient may not have been fully independently examined and use of other providers assessments were made in conjunction with my assessment to reach the best assessment and recommendations. Renal tx with renal calculi and arf Concern for obstruction of solitary kidney. Would discuss with but needs urgent nephrostogram with poss neph tube if stone in ureter. Hold tacro Agree with urine/blood culture and broad spectrum abx No immediate need for HD today but if obstruction is present and not corrected will need shortly. Hold allopurinol given ARF Agree with holding arb and can give clonidine as needed for BP > 140/x Maxi Pringle MD Associated attestation - Maxi Pringle MD - 05/16/2022 4:56 PM EDT Attending I saw and independently evaluated the patient on 05/16/22. I have discussed the case with the resident and formulated the plan of care with them and agree with resident s findings, examination and plan as documented in the resident s note Due to COVID emergency and in an attempt to reduce risk of viral contraction and transmission, patient may not have been fully independently examined and use of other providers assessments were made in conjunction with my assessment to reach the best assessment and recommendations. Maxi Pringle MD Associated Order(s): IP CONSULT TO SURGERY - UROLOGY Requesting Physician Gian Villatoro MD Reason for Consult Sent here with obstructive stone and hydronephrosis on transplanted kidney, does he need intervention? HPI Mr. Styles is a 52 y.o. 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 Pt states he went to his local ED [place] and he was put on Flomax and he did improve. Pt states last night he was unable to void with severe right sided abd pain. Pt states nausea and no vomiting or fevers. Pt states he went back to [place] ED at 0100 and they placed a myers. After myers placed, no sig urine output recorded. CT imaging obtained at OSH with new calcification in the right transplant lower pole vs UPJ and mild right renal edema, no clear hydronephrosis Transplant performed at [facility]. His post transplant course was complicated by delayed graft function and he required iHD until 04/26/2020. Last seen in clinic 12/2021 and noted to have good graft function at that time. No previous Urologic Hx No prior stone hx + family history of stones - mother No previous LUTS: only currently GH, dysuria, incomplete emptying Started on Tamsulosin at OSH, never before on medications to void No hx of UTIs AF VSS Cr 2.8 (baseline post transplant appears 1.1-1.2) WBC 15 UA + for Blood, LE, WBC Past Medical History He has a past medical history of Acute renal failure, CAD (coronary artery disease), Cirrhosis, Dialysis patient, End stage renal disease (06/01/2018), Essential hypertension, benign, Hepatic encephalopathy, History of blood transfusion, and Liver cirrhosis. Past Surgical History He has a past surgical history that includes other surgical (04/2018); ankle surgery (Right); angioplasty of brachiocephalic trunk or branch with transluminal balloon percutaneous for avf or gra; extraction tooth ; liver transplant, orthotopic (N/A, 04/12/2020); and kidney transplant w/o [place] nephrectomy (N/A, 04/12/2020). Medications He has a current medication list which includes the following prescription(s): allopurinol, amlodipine, aspirin, atorvastatin, docusate, famotidine, gabapentin, losartan, melatonin, multivitamin w/ minerals, mycophenolate sodium, polyethylene glycol, tacrolimus, tamsulosin hcl, camphor-menthol, fluoxetine, ondansetron, and ondansetron. Allergies He is allergic to shellfish-derived products. Social History He reports that he quit smoking about 4 years ago. His smoking use included cigarettes. He started smoking about 33 years ago. He has a 20.00 pack-year smoking history. He quit smokeless tobacco use about 27 years ago. His smokeless tobacco use included chew. He reports previous alcohol use of about 2.0 standard drinks of alcohol per week. He reports that he does not use drugs. Family History He has no family history of prostate, bladder or kidney cancer He has no family history of kidney stones Review of Systems 14 pt ROS found to be normal except for as stated above Physical Exam BP 147/59 Pulse 73 Temp 98.4 F (36.9 C) (Oral) Resp 16 Ht 1.702 m (5' 7 ) SpO2 93% BMI 31.86 kg/m Smoking Status Former Smoker Gen: NAD. Appears well. CV: RRR Pulm: Respirations are full and nonlabored. No respiratory distress Abd: Soft, NTND, no rebound or guarding. No CVA tenderness. Genitourinary Penis: penis, glans normal, no penile discharge. No rashes/lesions. 16 Fr myers catheter in place draining minimal clear yellow urine Testes: descended bilaterally, no masses Labs Lab Results Component Value Date SODIUM 138 05/15/2022 POTASSIUM 4.6 05/15/2022 CHLORIDE 105 05/15/2022 CO2 26 05/15/2022 BUN 32 (H) 05/15/2022 CREATSERUM 2.85 (H) 05/15/2022 Lab Results Component Value Date WBC 15.81 (H) 05/15/2022 HGB 14.6 05/15/2022 HCT 46.0 05/15/2022 PLATELET 250 05/15/2022 MCV 89.0 05/15/[address] Imaging 05/12/22 and report reviewed. IMPRESSION below should also contain the followin. 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 The configuration has not changed significantly, and prior acute inflammatory changes surrounding the liver transplant have resolved. Correlate clinically. CT ABD/PELVIS WO CON CLINICAL: Calculus of kidney. Hematuria. History of kidney stones. Renal transplant March 2020. COMPARISON: 06/14/2020 and 01/18/2020 TECHNIQUE: High-resolution axial images were obtained from diaphragms to pubic symphysis. Dose reduction: mA and/or kV are were adjusted by automated exposure control software based upon patients height and weight. FINDINGS: Lung bases are unremarkable. The liver shows no space-occupying lesion within limits of noncontrast technique. Surgical clips are present at the hepatic capsular margins and in the gallbladder fossa. No CT evidence of biliary obstruction. The spleen, pancreas and adrenals are stable. The [place] kidneys are progressively atrophic bilaterally compared to the prior study. There are calculi of up to 6 mm in the right renal sinus, with right renal hilar calcifications likely vascular. There is a right renal graft present in the right iliac fossa, with a 6 mm calcific density present at the level of the lower right graft renal sinus which was not present on the prior post transplant CT of 06/14/2020, best seen on coronal series 5 image 50, as compared to prior series 5 image 41 on the 06/14/2020 CT. This appears to be at the level of the graft ureteropelvic junction. No evidence of graft hydronephrosis, in comparison to the prior CT of 06/14/2020. No evidence of perigraft induration or fluid. Note is made that 2 tiny punctate calculi within the graft on the study of 06/14/2020 are no longer present. The [place] distal right ureter is decompressed beyond this point, and no calcification is seen within the urinary bladder. No definite ureteroneocystostomy is seen along the superior or right side of the urinary bladder, and graft ureter may be attached via ureteroureterostomy, correlate with clinical and surgical history and urologic consultation. No bowel obstruction, free intraperitoneal air or mesenteric inflammatory process is seen. The appendix is visible and is unremarkable immediately anterior to the right renal graft. No ascites or abdominal adenopathy. Prostate is upper normal in size. Osseous structures show no acute traumatic or osseous destructive lesion. A Schmorl's node at the superior T12 endplate is stable. IMPRESSION: 1. There is a new 6 mm calculus present associated with the right iliac fossa renal graft at the lower renal sinus, level of the graft ureteropelvic junction, which appears to represent a urinary calculus within the renal graft collecting system. This is a new finding compared to 06/04/2020, as detailed above. No noah hydronephrosis of the renal graft is seen, and no perigraft fluid or induration is seen, nonspecific but suggesting this may be incompletely obstructing. Detail is limited in the absence of IV contrast. 2. Correlate with surgical history for renal graft and [place] right urinary drainage, as a discrete ureteroneocystostomy is not identified, and the graft may be draining via a ureteroureterostomy. Urology consultation recommended. 3. The [place] kidneys are bilaterally atrophic, with right renal sinus calcifications consistent with nonobstructing right [place] renal calculi up to 6 mm. Normal Assessment Mr. Styles is a 52 y.o. 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 Urology consulted for new 6 mm calcification in the right transplant lower pole vs possible UPJ, with associated right renal edema, no clear hydronephrosis and unable to fully trace the ureteral course. Also multiple calcifications along the transplant hilum and inferiorly that are not clearly within the collecting system. Unclear if stone is causing obstruction or if hydronephrosis is present. Clinical presentation of new LUTS and +UA suspicious for UTI. Per comparison 05/2020 imaging after renal transplant (only read available, not old image) - mild edema within transplant with mild dilation of calyces present at that time as well, however no calcifications. Plan -No acute Urologic intervention -Agree with myers catheter for bladder decompression: recommend bladder US to confirm catheter is appropriately draining bladder or patient is simply producing minimal UOP -Obtain urine cx and empirically treat for UTI then based on speciation/sensitivities -Would trend renal function: recommend transplant medicine consultation to evaluate other acute causes of renal injury -Though not clearly a post-renal obstruction based on imaging, if no improvement in renal function after all other causes ruled out OR if patient clinically decompensates (fever, worsening pain, hemodynamic instability) we recommend percutaneous nephrostomy tube placement into transplant kidney at that time Stephanie Tomas MD PGY-3, Department of Urologic Surgery Pager #: [phone] Associated attestation - Ryan Yepez MD - 05/16/2022 12:23 PM EDT I saw and independently examined this patient today. I discussed my findings and the therapeutic plan with the resident. I agree with the their history, physical examination, and medical decisions as outlined. In addition: Patient with hx of urolithiasis and s/p DDRT in March 2020 now with flank pain. CT from OSH is difficult to interpret. There is minimal hydronephrosis and definitive ureteral stone is hard to determine. Unable to trace ureter from UPJ to bladder. Urine lytes most consistent with intrinsic causes of FAYE. Myers in place. However, patient now severely oliguric and Cr jumped to 5.23 from 2.85 (baseline around 1.1-1.2) As such, placement of a nephrostomy would be warranted. Myers catheter flushed this morning and myers patent. Plan: --due to rising Cr would recommend consultation to IR for nephrostomy tube placement. Request antegrade ureteropyelogram to assess for obstruction and evaluate the course of the ureter --if antegrade ureteropyelogram still indeterminate may need repeat imaging in the future before surgical intervention --may continue flomax documented in this encounter [facility] 05-16-2022 Note Formatting of this n ote might be different from the original. No change from previous assessment. VSS/RA. Pain control with PRNs. Myers with little UOP overnight - urine pink tinged. Blood cx sent. Resting with call light in reach. Problem: Pain, Acute (Adult) Goal: Identify Related Risk Factors and Signs and Symptoms Description: Related risk factors and signs and symptoms are identified upon initiation of Human Response Clinical Practice Guideline (CPG) Outcome: Ongoing Flowsheets (Taken 05/16/2022441) Related Risk Factors (Acute Pain): patient perception disease process positioning Signs and Symptoms (Acute Pain): verbalization of pain descriptors Goal: Acceptable Pain Control/Comfort Level Description: Patient will demonstrate the desired outcomes by discharge/transition of care. Outcome: Ongoing Flowsheets (Taken 05/16/2022441) Acceptable Pain Control/Comfort Level: making progress toward outcome Problem: Pain, Acute (Adult) Intervention: Monitor/Manage Analgesia Flowsheets Taken 05/16/2022441 Bowel Intervention: ambulation promoted privacy promoted Taken 05/16/2022 0028 Pain Management Interventions: medication given, see MAR Intervention: Mutually Develop/Implement Acute Pain Management Plan Flowsheets (Taken 05/16/2022441) Sensory Stimulation Regulation: care clustered Intervention: Support/Optimize Psychosocial Response to Acute Pain Flowsheets (Taken 05/16/2022441) Supportive Measures: active listening utilized decision-making supported Trust Relationship/Rapport: care explained choices provided [facility] 05-16-2022 Note Formatting of this n ote might be different from the original. On admission to 0, a dual RN initial assessment of skin condition was performed by Kallie Lorenzana RN and Sheri Arguelles RN. Skin Assessment: WDL Jose Score: 20 LDA Added:N Kallie Lorenzana RN [facility] 05-15-2022 Emergency department Note Report given to Kallie RN at [facility] 05-15-2022 Emergency department Note Report given to Kallie RN at [facility] Bladder scan with Dr Villatoro at bedside, 14ml noted Advised Dr Schneider concerning no urine output via myers catheter. ED Attending George Styles has a past medical history of Acute renal failure, CAD (coronary artery disease), Cirrhosis, Dialysis patient, End stage renal disease (06/01/2018), Essential hypertension, benign, Hepatic encephalopathy, History of blood transfusion, and Liver cirrhosis. Presents with a chief complaint of kidney stone and diagnosed Thursday and [facility] He went back to that ED and found to have a 6mm stone that is obstructing. He had a myers catheter placed and transferred here for further evaluation. He has BP 140/66 Pulse 78 Temp 98.3 F (36.8 C) (Oral) Resp 16 Ht 1.702 m (5' 7 ) SpO2 96% BMI 31.86 kg/m Smoking Status Former Smoker Impression: Right flank pain, FAYE, stone, hx of transplant liver and kidney Plan: Fluids, pain control, urology consult, admit to medicine, discuss with transplant. The procedure was completed by the resident. I was present for all critical portions of the procedure which lasted greater than 5 minutes. The procedure time was not included in any of the critical care time documented. Medication list reviewed I saw and examined the patient 05/15/2022. I discussed the history and examination with the resident and agree with the plan of care. Gian Villatoro MD 05/15/222003 Dr Schneider made aware of only 30 ml urine via myers since arrival to room. dEPARTMENT of Emergency Medicine CHIEF COMPLAINT Kidney Stone HPI George Styles is a 52 y.o. male with past medical history of alcoholic cirrhosis, CKD status post kidney transplant and liver transplant on April 18 who presents for obstructive kidney stone. Patient 1st had symptoms for kidney stone on Thursday, he was evaluated 10, received Flomax and was feeling better. Today he had trouble urinating, went to the outside hospital ED where they put a Myers and did a CT scan. It shows a 6 mm right ureterovesicular junction calculus with right-sided hydronephrosis and hydroureter, the right lower quadrant transplant kidney also has moderate hydronephrosis. In addition he also showed an FAYE at the outside hospital. On presentation he reports 4 out of 10 right lower quadrant pain, denies fevers, runny nose, sore throat, nausea, vomiting. REVIEW OF SYSTEMS Review of Systems Constitutional: Negative for fever. HENT: Negative for ear pain, rhinorrhea and sore throat. Eyes: Negative for pain and visual disturbance. Respiratory: Negative for cough and shortness of breath. Cardiovascular: Negative for chest pain and palpitations. Gastrointestinal: Positive for abdominal pain. Negative for constipation, diarrhea, nausea and vomiting. Endocrine: Negative for polyuria. Genitourinary: Positive for difficulty urinating. Negative for dysuria and hematuria. Musculoskeletal: Negative for arthralgias and myalgias. Skin: Negative for rash and wound. Neurological: Negative for dizziness, weakness, numbness and headaches. PAST MEDICAL HISTORY Past Medical History: Diagnosis Date Acute renal failure CAD (coronary artery disease) Cirrhosis Dialysis patient T, Th, Sa- Started 06/01/2018 End stage renal disease 06/01/2018 Essential hypertension, benign Hepatic encephalopathy History of blood transfusion Liver cirrhosis SURGICAL HISTORY Past Surgical History: Procedure Laterality Date LIVER TRANSPLANT, ORTHOTOPIC N/A 04/12/2020 Laterality: N/A; Surgeon: LU Palma; Location: [facility] SAME DAY SURGERY MAIN OR KIDNEY TRANSPLANT W/O [place] NEPHRECTOMY N/A 04/12/2020 Laterality: N/A; Surgeon: LU Palma; Location: [facility] SAME DAY SURGERY MAIN OR OTHER SURGICAL 04/2018 Right chest dialysis cather- ANGIOPLASTY OF BRACHIOCEPHALIC TRUNK OR BRANCH WITH TRANSLUMINAL BALLOON PERCUTANEOUS FOR AVF OR GRA ANKLE SURGERY Right plate in ankle EXTRACTION TOOTH CURRENT MEDICATIONS No current facility-administered medications for this encounter. Current Outpatient Medications Medication Sig Dispense Refill allopurinol 100 MG tablet take 2 tablets by mouth once daily 180 tablet 3 amLODIPine 5 MG tablet Take 5 mg by mouth daily. aspirin 81 MG Chew Tab chewable tablet Chew 1 tablet daily. Last refill from our office. Medication can be purchased over the counter going forward. 30 tablet 0 atorvastatin 20 MG tablet Take 1 tablet by mouth at bedtime. Further refills to be provided by PCP's office. 30 tablet 3 docusate 100 MG capsule Take 2 capsules by mouth every 12 hours. 120 capsule 0 faMOTIdine 20 MG tablet Take 20 mg by mouth 2 times daily. gabapentin 100 MG capsule Take 400 mg by mouth at bedtime. Take daily at bedtime for foot and ankle pain. losartan 50 MG tablet take 1 tablet by mouth twice a day 60 tablet 11 melatonin 3 MG tablet Take 3 mg by mouth at bedtime as needed for Insomnia. multivitamin w/ minerals tablet Take 1 tablet by mouth daily. Further refills to be provided by PCP's office. 30 tablet 3 mycophenolate sodium (MYFORTIC) [address] Take 2 tablets by mouth every 12 hours. 360 tablet 1 polyethylene glycol 17 g Pack packet Take 17 g by mouth daily. tacrolimus (PROGRAF) 0.5 MG capsule Take 2 capsules by mouth every 12 hours. 360 capsule 1 Tamsulosin HCl 0.4 MG capsule Take 0.4 mg by mouth daily. camphor-menthol 0.5-0.5 % Lotion Apply 1 Application topically as needed. 222 mL 0 FLUoxetine 40 MG capsule Take 40 mg by mouth daily. ondansetron (Zofran ODT) 4 MG Tab Dispersible tablet Dissolve 1 tablet on tongue every 6 hours as needed for nausea or vomiting. 20 tablet 0 ondansetron 4 MG tablet Take 4 mg by mouth every 8 hours as needed for Nausea / Vomiting. ALLERGIES Allergies Allergen Reactions Shellfish-Derived Products Swelling Patient with lip and tongue swelling. FAMILY HISTORY Family History Problem Relation Age of Onset Heart Disease - Other Mother Hypertension Mother Stroke Mother Diabetes Mother Heart Disease - Other Father Hypertension Father Stroke Father Diabetes Father Heart Disease - Other Sister Heart Disease - Other Brother Diabetes Brother Hypertension Brother Diabetes Maternal Aunt Breast Cancer Paternal Aunt Hypertension Paternal Aunt Heart Disease - Other Maternal Grandmother Diabetes Maternal Grandmother Lung Cancer Maternal Grandmother Hypertension Maternal Grandmother Heart Disease - Other Maternal Grandfather Hypertension Maternal Grandfather Lung Cancer Maternal Grandfather Heart Disease - Other Paternal Grandmother SOCIAL HISTORY Social History Socioeconomic History Marital status: Single Spouse name: Not on file Number of children: Not on file Years of education: Not on file Highest education level: Not on file Occupational History Not on file Tobacco Use Smoking status: Former Smoker Packs/day: 1.00 Years: 20.00 Pack years: 20.00 Types: Cigarettes Start date: 07/19/1988 Quit date: 05/14/2018 Years since quittin.0 Smokeless tobacco: Former User Types: Chew Quit date: 07/19/1994 Substance and Sexual Activity Alcohol use: Not Currently Alcohol/week: 2.0 standard drinks Types: 2 Cans of beer per week Comment: stopped 05/14/2018 Drug use: No Sexual activity: Never Other Topics Concern Not on file Social History Narrative Not on file Social Determinants of Health Financial Resource Strain: Not on file Food Insecurity: Not on file Transportation Needs: Not on file Physical Activity: Not on file Stress: Not on file Social Connections: Not on file Intimate Partner Violence: Not on file Housing Stability: Not on file PHYSICAL EXAM BP 140/66 Pulse 78 Temp 98.3 F (36.8 C) (Oral) Resp 16 Ht 1.702 m (5' 7 ) SpO2 96% BMI 31.86 kg/m Smoking Status Former Smoker Physical Exam Vitals and nursing note reviewed. Constitutional: General: He is not in acute distress. Appearance: Normal appearance. He is not ill-appearing. HENT: Mouth/Throat: Mouth: Mucous membranes are dry. Pharynx: Oropharynx is clear. No oropharyngeal exudate or posterior oropharyngeal erythema. Eyes: General: No scleral icterus. Extraocular Movements: Extraocular movements intact. Cardiovascular: Rate and Rhythm: Normal rate and regular rhythm. Pulses: Normal pulses. Heart sounds: Normal heart sounds. No murmur heard. No friction rub. No gallop. Pulmonary: Effort: Pulmonary effort is normal. No respiratory distress. Breath sounds: Normal breath sounds. No stridor. No wheezing, rhonchi or rales. Abdominal: General: Abdomen is flat. Bowel sounds are normal. There is no distension. Palpations: Abdomen is soft. There is no mass. Tenderness: There is abdominal tenderness (Right lower quadrant and suprapubic). There is no guarding or rebound. Hernia: No hernia is present. Musculoskeletal: Cervical back: No muscular tenderness. Right lower leg: No edema. Left lower leg: No edema. Lymphadenopathy: Cervical: No cervical adenopathy. Skin: Capillary Refill: Capillary refill takes less than 2 seconds. Neurological: Mental Status: He is alert and oriented to person, place, and time. Comments: Moves all 4 extremities ED COURSE & MEDICAL DECISION MAKING Assessment: 52-year-old male with past medical history of liver and kidney transplant on March 2020 is transferred here from an outside ED due to an obstructive stone that is infected and FAYE. Physical exam is remarkable for tenderness to palpation over the right lower quadrant and suprapubic area DDx includes but is not limited to: Nephrolithiasis, UTI, FAYE Plan: Orders Placed This Encounter URINE CULTURE RAINBOW DRAW CBC, EDIF, PLATELET CHEM 6 (LYTES, BUN CREA) GLUCOSE HEPATIC FUNCTION PANEL LIPASE GOLD TOP TUBE MINT GREEN TOP TUBE LAVENDER TOP TUBE LT BLUE TOP TUBE CBC AND ELECTRONIC DIFF amLODIPine 5 MG tablet Tamsulosin HCl 0.4 MG capsule polyethylene glycol 17 g Pack packet ondansetron 4 MG tablet Morphine Sulfate (PF) injection 4 mg lactated ringers IV solution 1,000 mL cefTRIAXone (ROCEPHIN) 2 g in dextrose 50mL premix IVPB URINE DIPSTICK; REFLEX MICROSCOPY; REFLEX CULTURE URINE DIPSTICK; REFLEX MICROSCOPY; REFLEX CULTURE PERFORMABLE EXTRA MICRO URINE MICROSCOPIC WITH REFLEX TO CULTURE ED Course as of 05/15/222029 Marta May 15, 2022 1736 NITRITES, URINE: Negative 1736 LEUKOCYTE ESTERASE, URINE(!): Large 1736 RBC, URINE(!): >20 1736 WBC, URINE(!): 10-20 1736 SQUAMOUS EPITHELIAL CELLS, URINE: ABSENT 1736 CREATININE SERUM(!): 2.85 Baseline around 1.4 1737 WBC(!): 15.81 2028 Patient discussed with Urology. They recommend starting him on ceftriaxone, doing a urine culture, admitting him for the FAYE and infection. They are not as certain that the kidney stone is obstructing in the ureter or that explains the etiology of today's presentation. They recommend admission for medical management and possible nephrostomy tube by IR. Medical decission making: Stable vitals on presentation. Patient was given IV fluids and morphine for symptom control. Laboratory evaluation is remarkable for UTI and FAYE with an elevated white count. He was given ceftriaxone. Patient was discussed with Urology as above. Impression: UTI, FAYE Dispo: Admit to medicine This note was dictated with M-Modal. Every effort was made to correct grammatical mistakes but please excuse any incorrections. Matt Schneider MD Resident 05/15/222030 Pt arrives from [facility] with kidney stones. Pt states he had right lower abd pain and right flank pain with blood in his urine since Thursday. Pt states he went to his local ED [place] and he was put on Flomax and he did improve. Pt states last night he was unable to void with severe right sided abd pain. Pt states nausea and no vomiting or fevers. Pt states he went back to [place] ED at 0100 and they placed a myers and CT scan completed and multiple kidney stones noted. Pt sent to [facility] ED as he had liver and kidney transplant in 03/2020. documented in this encounter [facility] 05-15-2022 History and physical note Internal Medicine Admission History & Physical Patient: George Styles, 1970, [id number] Physician: Evan Bennett MD, PGY1, Pager #[phone], GM 4 service Date of face to face patient encounter: 05/15/22 . Chief Complaint: Kidney Stones History Of Present Illness: George Styles is a 52 y.o. male with a history of alcoholic cirrhosis (alcohol), ESRD (Htn) s/p kidney transplant and liver transplant on April 18 who presents for obstructive kidney stone. Patient started having hematuria on Thursday along with nonspecific aches/pains. After another day of hematuria he went to ED on Thursday. CT showing 6 mm right ureterovesicular junction calculus with right-sided hydronephrosis and hydroureter, the right lower quadrant transplant kidney also has moderate hydronephrosis. He was placed on flomax and was discharged. He then started feeling worsening pain and decreased urine output; went back to he ED [facility]. Myers was placed and the patient was transferred. In the [facility] ED: Urology saw patient; no acute intervention. UCx sent; urine micro with 10-20WBC and greater than 20 RBC. Lipase negative. LFTs negative. Cr 2.85 (Baseline appears to be 1.1-1.3). Empiric UTI treatment with Ceftriaxone; UCx penidng. 2L IVF ordered. Currently pain is improved bu thaving fever and chills. He also reports productive cough that started today and sme chills. Current immunosuppression dosing is cellcept 360mg q12hrs and tacrolimus 1mg bid. Follows with Dr Latham and last saw him in the Winter. Medical/Surgical History: Past Medical History: Diagnosis Date Acute renal failure CAD (coronary artery disease) Cirrhosis Dialysis patient T, , - Started 06/01/2018 End stage renal disease 06/01/2018 Essential hypertension, benign Hepatic encephalopathy History of blood transfusion Liver cirrhosis Past Surgical History: Procedure Laterality Date LIVER TRANSPLANT, ORTHOTOPIC N/A 04/12/2020 Laterality: N/A; Surgeon: LU Palma; Location: [facility] SAME DAY SURGERY MAIN OR KIDNEY TRANSPLANT W/O [place] NEPHRECTOMY N/A 04/12/2020 Laterality: N/A; Surgeon: LU Palma; Location: [facility] SAME DAY SURGERY MAIN OR OTHER SURGICAL 04/2018 Right chest dialysis cather- ANGIOPLASTY OF BRACHIOCEPHALIC TRUNK OR BRANCH WITH TRANSLUMINAL BALLOON PERCUTANEOUS FOR AVF OR GRA ANKLE SURGERY Right plate in ankle EXTRACTION TOOTH Social History: he reports that he quit smoking about 4 years ago. His smoking use included cigarettes. He started smoking about 33 years ago. He has a 20.00 pack-year smoking history. He quit smokeless tobacco use about 27 years ago. His smokeless tobacco use included chew. He reports previous alcohol use of about 2.0 standard drinks of alcohol per week. He reports that he does not use drugs. Family History: family history includes Breast Cancer in his paternal aunt; Diabetes in his brother, father, maternal aunt, maternal grandmother, and mother; Heart Disease - Other in his brother, father, maternal grandfather, maternal grandmother, mother, paternal grandmother, and sister; Hypertension in his brother, father, maternal grandfather, maternal grandmother, mother, and paternal aunt; Lung Cancer in his maternal grandfather and maternal grandmother; Stroke in his father and mother. Medications: Prior to Admission Medications Prescriptions FLUoxetine 40 MG capsule Sig: Take 40 mg by mouth daily. Tamsulosin HCl 0.4 MG capsule Sig: Take 0.4 mg by mouth daily. allopurinol 100 MG tablet Sig: take 2 tablets by mouth once daily amLODIPine 5 MG tablet Sig: Take 5 mg by mouth daily. aspirin 81 MG Chew Tab chewable tablet Sig: Chew 1 tablet daily. Last refill from our office. Medication can be purchased over the counter going forward. atorvastatin 20 MG tablet Sig: Take 1 tablet by mouth at bedtime. Further refills to be provided by PCP's office. camphor-menthol 0.5-0.5 % Lotion Sig: Apply 1 Application topically as needed. docusate 100 MG capsule Sig: Take 2 capsules by mouth every 12 hours. faMOTIdine 20 MG tablet Sig: Take 20 mg by mouth 2 times daily. gabapentin 100 MG capsule Sig: Take 400 mg by mouth at bedtime. Take daily at bedtime for foot and ankle pain. losartan 50 MG tablet Sig: take 1 tablet by mouth twice a day melatonin 3 MG tablet Sig: Take 3 mg by mouth at bedtime as needed for Insomnia. multivitamin w/ minerals tablet Sig: Take 1 tablet by mouth daily. Further refills to be provided by PCP's office. mycophenolate sodium (MYFORTIC) [address] Sig: Take 2 tablets by mouth every 12 hours. ondansetron (Zofran ODT) 4 MG Tab Dispersible tablet Sig: Dissolve 1 tablet on tongue every 6 hours as needed for nausea or vomiting. ondansetron 4 MG tablet Sig: Take 4 mg by mouth every 8 hours as needed for Nausea / Vomiting. polyethylene glycol 17 g Pack packet Sig: Take 17 g by mouth daily. tacrolimus (PROGRAF) 0.5 MG capsule Sig: Take 2 capsules by mouth every 12 hours. Facility-Administered Medications: None Allergies: Allergies Allergen Reactions Shellfish-Derived Products Swelling Patient with lip and tongue swelling. Review of Systems: Review of Systems Constitutional: Positive for chills and fatigue. Negative for fever. Eyes: Negative for visual disturbance. Respiratory: Positive for cough. Negative for shortness of breath. Cardiovascular: Negative for chest pain and leg swelling. Gastrointestinal: Positive for abdominal pain. Negative for abdominal distention and blood in stool. Genitourinary: Positive for decreased urine volume and hematuria. Skin: Negative for color change. Neurological: Negative for weakness. Hematological: Bruises/bleeds easily. 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 Strength grossly equal in muscle groups of the bilateral UEs and LEs. Psych: Ox3, appropriate affect and cognition Data Review: WBC/Hgb/Hct/Plts: 15.81/14.6/46.0/250 (05/15 1436) Na/K+/Phos/Mg/Ca: 138/4.6/--/--/-- (05/15 1436) Bun/Creat/Cl/CO2/Glucose: 32/2.85/105/26/141 (05/15 1436) Imaging: OSH CT 05/16/22 IMPRESSION: 1. Findings surrounding the liver and involymg the portal vein, branches, and collateral vessels within the upper abdomen are suspected be poststirgical chauges consistent with recent liver transplant. Increasing hypertension cannot be excluded. 2. Mild edema within the transplant renal hilum and mild dilation of the calyces may represent narrowing/partial [id number] ofthe ureter and mild hydronephrosis or sequela ofrecent kidney transplat. 3. Unremarkable boweL Electronically enthentiental byRomaine JIMENEZ Date: 2020-06-14 12:25 Impression/Plan: George Styles is a 52 y.o. male s/p LK transplant 2019 presenting with 6mm kidney stone in the R kidney. FAYE with 6mm Kidney Stone S/p LK transplant 2019 Patient presenting with 6mm Kidney stone and FAYE (2.8 from 1.2 baseline) after a week of hematuria and worsening abdominal pain. 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 Current IS regimen tac 1mg bid and cellcept 360 bid. Currently has leukocytosis to 15 on admission. Images pushed from [facility] - Urology following no acute intervention. Myers placed before transfer - transplant neph consult in the AM; last time taking tac/mycophenolate was evening of 05/13 (held on admission). - Tac trough ordered; UPCR and lytes ordered - UCx pending; BCx ordered. Can continue ceftriaxone per urology wanting empiric treatment - CXR in the setting of new onset cough; added on procal - Monitor I/O; s/p 2L IVF in the ED. Low bladder scan amounts up to this point. - PRN morhpine/tylenol for pain control. LFTs stable. Continued home bowel regimen for constipation CAD Continue aspirin and statin Htn Home regimen continued with amlodipine and losartan GERD Pepcid DVT prophylaxis with heparin Disposition: GM 4 for puente control and infectious workup Code status is FULL. (Decision makers are his siblings if he cannot answer for himself) Staffed with Dr Prince Signed, Evan Bennett MD Associated attestation - Fred Prince MD - 05/16/2022 3:59 AM EDT I have seen and examined the patient today independently of the house staff team and discussed with them all pertinent findings. I have personally reviewed all available clinical data related to today's encounter. I have been fully involved in formulation of the above-documented assessment and plan, it has been thoroughly discussed with the residents/interns and agree with the resident findings and plan of care as documented in their note in addition to the following. 52 yo male with liver/kidney transplant presents with RLQ abdominal and flank pain and elevated Cr. He presented to and OSH last weekend with similar symptoms and was diagnosed with a small, non-obstructing kidney stone and discharged home with flomax. Symptoms worsened again on Thursday prompting him to return to the ER. Pain is mostly R lower flank and abdomen. It has radiated into the groin sometimes. He reports no fevers or chills. He has had some malaise/fatigue. He reports his appetite and drinking has been adequate he thinks. Only new med recently was amlodipine Gen: A, A, NAD ENT: MMM Resp: CTA & P bilat, normal effort Cardio: RRR, normal S1, S2, No JENSEN GI: S/NT/ND, NABS Psych: Ox3, appropriate affect and cognition A/P 52 yo male with FAYE and renal stone. FAYE is most likely related to renal stone although another etiology is not completely ruled out. Infectious is possible and urology have recommended empiric abx which we will continue until urine culture returns. Pre-renal seems less likely as his intake has been normal but possible given extreme heat lately. - Hold further fluids (s/p 2L in ER) - check urine lytes - Continue emperic ceftriaxone and follow cultures. - Trend Creatinine - Appreciate urology and transplant neph. - Hold home losartan with FAYE - IS dosing per neph Fred Prince MD Division of Hospital Medicine [phone] [facility] Work Phone: 05-15-2022 History and physical note Internal Medicine Admission History & Physical Patient: George Styles, 1970, [id number] Physician: Evan Bennett MD, PGY1, Pager #[phone], 4 service Date of face to face patient encounter: 05/15/22 . Chief Complaint: Kidney Stones History Of Present Illness: George Styles is a 52 y.o. male with a history of alcoholic cirrhosis (alcohol), ESRD (Htn) s/p kidney transplant and liver transplant on April 18 who presents for obstructive kidney stone. Patient started having hematuria on Thursday along with nonspecific aches/pains. After another day of hematuria he went to ED on Thursday. CT showing 6 mm right ureterovesicular junction calculus with right-sided hydronephrosis and hydroureter, the right lower quadrant transplant kidney also has moderate hydronephrosis. He was placed on flomax and was discharged. He then started feeling worsening pain and decreased urine output; went back to he ED [facility]. Myers was placed and the patient was transferred. In the [facility] ED: Urology saw patient; no acute intervention. UCx sent; urine micro with 10-20WBC and greater than 20 RBC. Lipase negative. LFTs negative. Cr 2.85 (Baseline appears to be 1.1-1.3). Empiric UTI treatment with Ceftriaxone; UCx penidng. 2L IVF ordered. Currently pain is improved bu thaving fever and chills. He also reports productive cough that started today and sme chills. Current immunosuppression dosing is cellcept 360mg q12hrs and tacrolimus 1mg bid. Follows with Dr Latham and last saw him in the Winter. Medical/Surgical History: Past Medical History: Diagnosis Date Acute renal failure CAD (coronary artery disease) Cirrhosis Dialysis patient T, , - Started 06/01/2018 End stage renal disease 06/01/2018 Essential hypertension, benign Hepatic encephalopathy History of blood transfusion Liver cirrhosis Past Surgical History: Procedure Laterality Date LIVER TRANSPLANT, ORTHOTOPIC N/A 04/12/2020 Laterality: N/A; Surgeon: LU Palma; Location: [facility] SAME DAY SURGERY MAIN OR KIDNEY TRANSPLANT W/O [place] NEPHRECTOMY N/A 04/12/2020 Laterality: N/A; Surgeon: LU Palma; Location: [facility] SAME DAY [facility]ERY MAIN OR OTHER SURGICAL 04/2018 Right chest dialysis cather- ANGIOPLASTY OF BRACHIOCEPHALIC TRUNK OR BRANCH WITH TRANSLUMINAL BALLOON PERCUTANEOUS FOR AVF OR GRA ANKLE SURGERY Right plate in ankle EXTRACTION TOOTH Social History: he reports that he quit smoking about 4 years ago. His smoking use included cigarettes. He started smoking about 33 years ago. He has a 20.00 pack-year smoking history. He quit smokeless tobacco use about 27 years ago. His smokeless tobacco use included chew. He reports previous alcohol use of about 2.0 standard drinks of alcohol per week. He reports that he does not use drugs. Family History: family history includes Breast Cancer in his paternal aunt; Diabetes in his brother, father, maternal aunt, maternal grandmother, and mother; Heart Disease - Other in his brother, father, maternal grandfather, maternal grandmother, mother, paternal grandmother, and sister; Hypertension in his brother, father, maternal grandfather, maternal grandmother, mother, and paternal aunt; Lung Cancer in his maternal grandfather and maternal grandmother; Stroke in his father and mother. Medications: Prior to Admission Medications Prescriptions FLUoxetine 40 MG capsule Sig: Take 40 mg by mouth daily. Tamsulosin HCl 0.4 MG capsule Sig: Take 0.4 mg by mouth daily. allopurinol 100 MG tablet Sig: take 2 tablets by mouth once daily amLODIPine 5 MG tablet Sig: Take 5 mg by mouth daily. aspirin 81 MG Chew Tab chewable tablet Sig: Chew 1 tablet daily. Last refill from our office. Medication can be purchased over the counter going forward. atorvastatin 20 MG tablet Sig: Take 1 tablet by mouth at bedtime. Further refills to be provided by PCP's office. camphor-menthol 0.5-0.5 % Lotion Sig: Apply 1 Application topically as needed. docusate 100 MG capsule Sig: Take 2 capsules by mouth every 12 hours. faMOTIdine 20 MG tablet Sig: Take 20 mg by mouth 2 times daily. gabapentin 100 MG capsule Sig: Take 400 mg by mouth at bedtime. Take daily at bedtime for foot and ankle pain. losartan 50 MG tablet Sig: take 1 tablet by mouth twice a day melatonin 3 MG tablet Sig: Take 3 mg by mouth at bedtime as needed for Insomnia. multivitamin w/ minerals tablet Sig: Take 1 tablet by mouth daily. Further refills to be provided by PCP's office. mycophenolate sodium (MYFORTIC) [address] Sig: Take 2 tablets by mouth every 12 hours. ondansetron (Zofran ODT) 4 MG Tab Dispersible tablet Sig: Dissolve 1 tablet on tongue every 6 hours as needed for nausea or vomiting. ondansetron 4 MG tablet Sig: Take 4 mg by mouth every 8 hours as needed for Nausea / Vomiting. polyethylene glycol 17 g Pack packet Sig: Take 17 g by mouth daily. tacrolimus (PROGRAF) 0.5 MG capsule Sig: Take 2 capsules by mouth every 12 hours. Facility-Administered Medications: None Allergies: Allergies Allergen Reactions Shellfish-Derived Products Swelling Patient with lip and tongue swelling. Review of Systems: Review of Systems Constitutional: Positive for chills and fatigue. Negative for fever. Eyes: Negative for visual disturbance. Respiratory: Positive for cough. Negative for shortness of breath. Cardiovascular: Negative for chest pain and leg swelling. Gastrointestinal: Positive for abdominal pain. Negative for abdominal distention and blood in stool. Genitourinary: Positive for decreased urine volume and hematuria. Skin: Negative for color change. Neurological: Negative for weakness. Hematological: Bruises/bleeds easily. 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 Strength grossly equal in muscle groups of the bilateral UEs and LEs. Psych: Ox3, appropriate affect and cognition Data Review: WBC/Hgb/Hct/Plts: 15.81/14.6/46.0/250 (05/15 1436) Na/K+/Phos/Mg/Ca: 138/4.6/--/--/-- (05/15 1436) Bun/Creat/Cl/CO2/Glucose: 32/2.85/105/26/141 (05/15 1436) Imaging: OSH CT 05/16/22 IMPRESSION: 1. Findings surrounding the liver and involymg the portal vein, branches, and collateral vessels within the upper abdomen are suspected be poststirgical chauges consistent with recent liver transplant. Increasing hypertension cannot be excluded. 2. Mild edema within the transplant renal hilum and mild dilation of the calyces may represent narrowing/partial [id number] ofthe ureter and mild hydronephrosis or sequela ofrecent kidney transplat. 3. Unremarkable boweL Electronically enthentiental byRomaine JIMENEZ Date: 2020-06-14 12:25 Impression/Plan: George Styles is a 52 y.o. male s/p LK transplant 2019 presenting with 6mm kidney stone in the R kidney. FAYE with 6mm Kidney Stone S/p LK transplant 2019 Patient presenting with 6mm Kidney stone and FAYE (2.8 from 1.2 baseline) after a week of hematuria and worsening abdominal pain. 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 Current IS regimen tac 1mg bid and cellcept 360 bid. Currently has leukocytosis to 15 on admission. Images pushed from Lo - Urology following no acute intervention. Myers placed before transfer - transplant neph consult in the AM; last time taking tac/mycophenolate was evening of 05/13 (held on admission). - Tac trough ordered; UPCR and lytes ordered - UCx pending; BCx ordered. Can continue ceftriaxone per urology wanting empiric treatment - CXR in the setting of new onset cough; added on procal - Monitor I/O; s/p 2L IVF in the ED. Low bladder scan amounts up to this point. - PRN morhpine/tylenol for pain control. LFTs stable. Continued home bowel regimen for constipation CAD Continue aspirin and statin Htn Home regimen continued with amlodipine and losartan GERD Pepcid DVT prophylaxis with heparin Disposition: GM 4 for puente control and infectious workup Code status is FULL. (Decision makers are his siblings if he cannot answer for himself) Staffed with Dr Prince Signed, Evan Bennett MD Associated attestation - Fred Prince MD - 05/16/2022 3:59 AM EDT I have seen and examined the patient today independently of the house staff team and discussed with them all pertinent findings. I have personally reviewed all available clinical data related to today's encounter. I have been fully involved in formulation of the above-documented assessment and plan, it has been thoroughly discussed with the residents/interns and agree with the resident findings and plan of care as documented in their note in addition to the following. 52 yo male with liver/kidney transplant presents with RLQ abdominal and flank pain and elevated Cr. He presented to and OSH last weekend with similar symptoms and was diagnosed with a small, non-obstructing kidney stone and discharged home with flomax. Symptoms worsened again on Thursday prompting him to return to the ER. Pain is mostly R lower flank and abdomen. It has radiated into the groin sometimes. He reports no fevers or chills. He has had some malaise/fatigue. He reports his appetite and drinking has been adequate he thinks. Only new med recently was amlodipine Gen: A, A, NAD ENT: MMM Resp: CTA & P bilat, normal effort Cardio: RRR, normal S1, S2, No JENSEN GI: S/NT/ND, NABS Psych: Ox3, appropriate affect and cognition A/P 52 yo male with FAYE and renal stone. FAYE is most likely related to renal stone although another etiology is not completely ruled out. Infectious is possible and urology have recommended empiric abx which we will continue until urine culture returns. Pre-renal seems less likely as his intake has been normal but possible given extreme heat lately. - Hold further fluids (s/p 2L in ER) - check urine lytes - Continue emperic ceftriaxone and follow cultures. - Trend Creatinine - Appreciate urology and transplant neph. - Hold home losartan with FAYE - IS dosing per neph Fred Prince MD Division of Hospital Medicine [phone] documented in this encounter [facility] 05-15-2022 Emergency department Note Bladder scan with Dr Villatoro at bedside, 14ml noted [facility] 05-15-2022 Consult note Associated Order (s): IP CONSULT TO SURGERY - UROLOGY Requesting Physician Gian Villatoro MD Reason for Consult Sent here with obstructive stone and hydronephrosis on transplanted kidney, does he need intervention? HPI Mr. Styles is a 52 y.o. 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 Pt states he went to his local ED [place] and he was put on Flomax and he did improve. Pt states last night he was unable to void with severe right sided abd pain. Pt states nausea and no vomiting or fevers. Pt states he went back to [place] ED at 0100 and they placed a myers. After myers placed, no sig urine output recorded. CT imaging obtained at OSH with new calcification in the right transplant lower pole vs UPJ and mild right renal edema, no clear hydronephrosis Transplant performed at [facility]. His post transplant course was complicated by delayed graft function and he required iHD until 04/26/2020. Last seen in clinic 12/2021 and noted to have good graft function at that time. No previous Urologic Hx No prior stone hx + family history of stones - mother No previous LUTS: only currently GH, dysuria, incomplete emptying Started on Tamsulosin at OSH, never before on medications to void No hx of UTIs AF VSS Cr 2.8 (baseline post transplant appears 1.1-1.2) WBC 15 UA + for Blood, LE, WBC Past Medical History He has a past medical history of Acute renal failure, CAD (coronary artery disease), Cirrhosis, Dialysis patient, End stage renal disease (06/01/2018), Essential hypertension, benign, Hepatic encephalopathy, History of blood transfusion, and Liver cirrhosis. Past Surgical History He has a past surgical history that includes other surgical (04/2018); ankle surgery (Right); angioplasty of brachiocephalic trunk or branch with transluminal balloon percutaneous for avf or gra; extraction tooth ; liver transplant, orthotopic (N/A, 04/12/2020); and kidney transplant w/o [place] nephrectomy (N/A, 04/12/2020). Medications He has a current medication list which includes the following prescription(s): allopurinol, amlodipine, aspirin, atorvastatin, docusate, famotidine, gabapentin, losartan, melatonin, multivitamin w/ minerals, mycophenolate sodium, polyethylene glycol, tacrolimus, tamsulosin hcl, camphor-menthol, fluoxetine, ondansetron, and ondansetron. Allergies He is allergic to shellfish-derived products. Social History He reports that he quit smoking about 4 years ago. His smoking use included cigarettes. He started smoking about 33 years ago. He has a 20.00 pack-year smoking history. He quit smokeless tobacco use about 27 years ago. His smokeless tobacco use included chew. He reports previous alcohol use of about 2.0 standard drinks of alcohol per week. He reports that he does not use drugs. Family History He has no family history of prostate, bladder or kidney cancer He has no family history of kidney stones Review of Systems 14 pt ROS found to be normal except for as stated above Physical Exam BP 147/59 Pulse 73 Temp 98.4 F (36.9 C) (Oral) Resp 16 Ht 1.702 m (5' 7 ) SpO2 93% BMI 31.86 kg/m Smoking Status Former Smoker Gen: NAD. Appears well. CV: RRR Pulm: Respirations are full and nonlabored. No respiratory distress Abd: Soft, NTND, no rebound or guarding. No CVA tenderness. Genitourinary Penis: penis, glans normal, no penile discharge. No rashes/lesions. 16 Fr myers catheter in place draining minimal clear yellow urine Testes: descended bilaterally, no masses Labs Lab Results Component Value Date SODIUM 138 05/15/2022 POTASSIUM 4.6 05/15/2022 CHLORIDE 105 05/15/2022 CO2 26 05/15/2022 BUN 32 (H) 05/15/2022 CREATSERUM 2.85 (H) 05/15/2022 Lab Results Component Value Date WBC 15.81 (H) 05/15/2022 HGB 14.6 05/15/2022 HCT 46.0 05/15/2022 PLATELET 250 05/15/2022 MCV 89.0 05/15/[address] Imaging 05/12/22 and report reviewed. IMPRESSION below should also contain the followin. 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 The configuration has not changed significantly, and prior acute inflammatory changes surrounding the liver transplant have resolved. Correlate clinically. CT ABD/PELVIS WO CON CLINICAL: Calculus of kidney. Hematuria. History of kidney stones. Renal transplant March 2020. COMPARISON: 06/14/2020 and 01/18/2020 TECHNIQUE: High-resolution axial images were obtained from diaphragms to pubic symphysis. Dose reduction: mA and/or kV are were adjusted by automated exposure control software based upon patients height and weight. FINDINGS: Lung bases are unremarkable. The liver shows no space-occupying lesion within limits of noncontrast technique. Surgical clips are present at the hepatic capsular margins and in the gallbladder fossa. No CT evidence of biliary obstruction. The spleen, pancreas and adrenals are stable. The [place] kidneys are progressively atrophic bilaterally compared to the prior study. There are calculi of up to 6 mm in the right renal sinus, with right renal hilar calcifications likely vascular. There is a right renal graft present in the right iliac fossa, with a 6 mm calcific density present at the level of the lower right graft renal sinus which was not present on the prior post transplant CT of 06/14/2020, best seen on coronal series 5 image 50, as compared to prior series 5 image 41 on the 06/14/2020 CT. This appears to be at the level of the graft ureteropelvic junction. No evidence of graft hydronephrosis, in comparison to the prior CT of 06/14/2020. No evidence of perigraft induration or fluid. Note is made that 2 tiny punctate calculi within the graft on the study of 06/14/2020 are no longer present. The [place] distal right ureter is decompressed beyond this point, and no calcification is seen within the urinary bladder. No definite ureteroneocystostomy is seen along the superior or right side of the urinary bladder, and graft ureter may be attached via ureteroureterostomy, correlate with clinical and surgical history and urologic consultation. No bowel obstruction, free intraperitoneal air or mesenteric inflammatory process is seen. The appendix is visible and is unremarkable immediately anterior to the right renal graft. No ascites or abdominal adenopathy. Prostate is upper normal in size. Osseous structures show no acute traumatic or osseous destructive lesion. A Schmorl's node at the superior T12 endplate is stable. IMPRESSION: 1. There is a new 6 mm calculus present associated with the right iliac fossa renal graft at the lower renal sinus, level of the graft ureteropelvic junction, which appears to represent a urinary calculus within the renal graft collecting system. This is a new finding compared to 06/04/2020, as detailed above. No noah hydronephrosis of the renal graft is seen, and no perigraft fluid or induration is seen, nonspecific but suggesting this may be incompletely obstructing. Detail is limited in the absence of IV contrast. 2. Correlate with surgical history for renal graft and [place] right urinary drainage, as a discrete ureteroneocystostomy is not identified, and the graft may be draining via a ureteroureterostomy. Urology consultation recommended. 3. The [place] kidneys are bilaterally atrophic, with right renal sinus calcifications consistent with nonobstructing right [place] renal calculi up to 6 mm. Normal Assessment Mr. Styles is a 52 y.o. 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 Urology consulted for new 6 mm calcification in the right transplant lower pole vs possible UPJ, with associated right renal edema, no clear hydronephrosis and unable to fully trace the ureteral course. Also multiple calcifications along the transplant hilum and inferiorly that are not clearly within the collecting system. Unclear if stone is causing obstruction or if hydronephrosis is present. Clinical presentation of new LUTS and +UA suspicious for UTI. Per comparison 05/2020 imaging after renal transplant (only read available, not old image) - mild edema within transplant with mild dilation of calyces present at that time as well, however no calcifications. Plan -No acute Urologic intervention -Agree with myers catheter for bladder decompression: recommend bladder US to confirm catheter is appropriately draining bladder or patient is simply producing minimal UOP -Obtain urine cx and empirically treat for UTI then based on speciation/sensitivities -Would trend renal function: recommend transplant medicine consultation to evaluate other acute causes of renal injury -Though not clearly a post-renal obstruction based on imaging, if no improvement in renal function after all other causes ruled out OR if patient clinically decompensates (fever, worsening pain, hemodynamic instability) we recommend percutaneous nephrostomy tube placement into transplant kidney at that time Stephanie Tomas MD PGY-3, Department of Urologic Surgery Pager #: [phone] Associated attestation - Ryan Yepez MD - 05/16/2022 12:23 PM EDT I saw and independently examined this patient today. I discussed my findings and the therapeutic plan with the resident. I agree with the their history, physical examination, and medical decisions as outlined. In addition: Patient with hx of urolithiasis and s/p DDRT in March [address] now with flank pain. CT from OSH is difficult to interpret. There is minimal hydronephrosis and definitive ureteral stone is hard to determine. Unable to trace ureter from UPJ to bladder. Urine lytes most consistent with intrinsic causes of FAYE. Myers in place. However, patient now severely oliguric and Cr jumped to 5.23 from 2.85 (baseline around 1.1-1.2) As such, placement of a nephrostomy would be warranted. Myers catheter flushed this morning and myers patent. Plan: --due to rising Cr would recommend consultation to IR for nephrostomy tube placement. Request antegrade ureteropyelogram to assess for obstruction and evaluate the course of the ureter --if antegrade ureteropyelogram still indeterminate may need repeat imaging in the future before surgical intervention --may continue flomax [facility] Work Phone: 05-15-2022 Emergency department Note Advised Dr Schneider concerning no urine output via myers catheter. [facility] 05-15-2022 Physician Emergency department Note ED Attending George Styles has a past medical history of Acute renal failure, CAD (coronary artery disease), Cirrhosis, Dialysis patient, End stage renal disease (06/01/2018), Essential hypertension, benign, Hepatic encephalopathy, History of blood transfusion, and Liver cirrhosis. Presents with a chief complaint of kidney stone and diagnosed Thursday and was sent home with flomax. He went back to that ED and found to have a 6mm stone that is obstructing. He had a myers catheter placed and transferred here for further evaluation. He has BP 140/66 Pulse 78 Temp 98.3 F (36.8 C) (Oral) Resp 16 Ht 1.702 m (5' 7 ) SpO2 96% BMI 31.86 kg/m Smoking Status Former Smoker Impression: Right flank pain, FAYE, stone, hx of transplant liver and kidney Plan: Fluids, pain control, urology consult, admit to medicine, discuss with transplant. The procedure was completed by the resident. I was present for all critical portions of the procedure which lasted greater than 5 minutes. The procedure time was not included in any of the critical care time documented. Medication list reviewed I saw and examined the patient 05/15/2022. I discussed the history and examination with the resident and agree with the plan of care. Gian Villatoro MD 05/15/222003 [facility] Work Phone: 05-15-[address] Schneider made aware of only 30 ml urine via myers since arrival to room. [facility] 05-15-2022 Physician Emergency department Note dEPARTMENT of Emergency Medicine CHIEF COMPLAINT Kidney Stone HPI George Styles is a 52 y.o. male with past medical history of alcoholic cirrhosis, CKD status post kidney transplant and liver transplant on April 18 who presents for obstructive kidney stone. Patient 1st had symptoms for kidney stone on Thursday, he was evaluated 10, received Flomax and was feeling better. Today he had trouble urinating, went to the outside hospital ED where they put a Myers and did a CT scan. It shows a 6 mm right ureterovesicular junction calculus with right-sided hydronephrosis and hydroureter, the right lower quadrant transplant kidney also has moderate hydronephrosis. In addition he also showed an FAYE at the outside hospital. On presentation he reports 4 out of 10 right lower quadrant pain, denies fevers, runny nose, sore throat, nausea, vomiting. REVIEW OF SYSTEMS Review of Systems Constitutional: Negative for fever. HENT: Negative for ear pain, rhinorrhea and sore throat. Eyes: Negative for pain and visual disturbance. Respiratory: Negative for cough and shortness of breath. Cardiovascular: Negative for chest pain and palpitations. Gastrointestinal: Positive for abdominal pain. Negative for constipation, diarrhea, nausea and vomiting. Endocrine: Negative for polyuria. Genitourinary: Positive for difficulty urinating. Negative for dysuria and hematuria. Musculoskeletal: Negative for arthralgias and myalgias. Skin: Negative for rash and wound. Neurological: Negative for dizziness, weakness, numbness and headaches. PAST MEDICAL HISTORY Past Medical History: Diagnosis Date Acute renal failure CAD (coronary artery disease) Cirrhosis Dialysis patient T, Th, Sa- Started 06/01/2018 End stage renal disease 06/01/2018 Essential hypertension, benign Hepatic encephalopathy History of blood transfusion Liver cirrhosis SURGICAL HISTORY Past Surgical History: Procedure Laterality Date LIVER TRANSPLANT, ORTHOTOPIC N/A 04/12/2020 Laterality: N/A; Surgeon: LU Palma; Location: [facility] OR KIDNEY TRANSPLANT W/O [place] NEPHRECTOMY N/A 04/12/2020 Laterality: N/A; Surgeon: LU Palma; Location: [facility] MAIN OR OTHER SURGICAL 04/2018 Right chest dialysis cather- ANGIOPLASTY OF BRACHIOCEPHALIC TRUNK OR BRANCH WITH TRANSLUMINAL BALLOON PERCUTANEOUS FOR AVF OR GRA ANKLE SURGERY Right plate in ankle EXTRACTION TOOTH CURRENT MEDICATIONS No current facility-administered medications for this encounter. Current Outpatient Medications Medication Sig Dispense Refill allopurinol 100 MG tablet take 2 tablets by mouth once daily 180 tablet 3 amLODIPine 5 MG tablet Take 5 mg by mouth daily. aspirin 81 MG Chew Tab chewable tablet Chew 1 tablet daily. Last refill from our office. Medication can be purchased over the counter going forward. 30 tablet 0 atorvastatin 20 MG tablet Take 1 tablet by mouth at bedtime. Further refills to be provided by PCP's office. 30 tablet 3 docusate 100 MG capsule Take 2 capsules by mouth every 12 hours. 120 capsule 0 faMOTIdine 20 MG tablet Take 20 mg by mouth 2 times daily. gabapentin 100 MG capsule Take 400 mg by mouth at bedtime. Take daily at bedtime for foot and ankle pain. losartan 50 MG tablet take 1 tablet by mouth twice a day 60 tablet 11 melatonin 3 MG tablet Take 3 mg by mouth at bedtime as needed for Insomnia. multivitamin w/ minerals tablet Take 1 tablet by mouth daily. Further refills to be provided by PCP's office. 30 tablet 3 mycophenolate sodium (MYFORTIC) [address] Take 2 tablets by mouth every 12 hours. 360 tablet 1 polyethylene glycol 17 g Pack packet Take 17 g by mouth daily. tacrolimus (PROGRAF) 0.5 MG capsule Take 2 capsules by mouth every 12 hours. 360 capsule 1 Tamsulosin HCl 0.4 MG capsule Take 0.4 mg by mouth daily. camphor-menthol 0.5-0.5 % Lotion Apply 1 Application topically as needed. 222 mL 0 FLUoxetine 40 MG capsule Take 40 mg by mouth daily. ondansetron (Zofran ODT) 4 MG Tab Dispersible tablet Dissolve 1 tablet on tongue every 6 hours as needed for nausea or vomiting. 20 tablet 0 ondansetron 4 MG tablet Take 4 mg by mouth every 8 hours as needed for Nausea / Vomiting. ALLERGIES Allergies Allergen Reactions Shellfish-Derived Products Swelling Patient with lip and tongue swelling. FAMILY HISTORY Family History Problem Relation Age of Onset Heart Disease - Other Mother Hypertension Mother Stroke Mother Diabetes Mother Heart Disease - Other Father Hypertension Father Stroke Father Diabetes Father Heart Disease - Other Sister Heart Disease - Other Brother Diabetes Brother Hypertension Brother Diabetes Maternal Aunt Breast Cancer Paternal Aunt Hypertension Paternal Aunt Heart Disease - Other Maternal Grandmother Diabetes Maternal Grandmother Lung Cancer Maternal Grandmother Hypertension Maternal Grandmother Heart Disease - Other Maternal Grandfather Hypertension Maternal Grandfather Lung Cancer Maternal Grandfather Heart Disease - Other Paternal Grandmother SOCIAL HISTORY Social History Socioeconomic History Marital status: Single Spouse name: Not on file Number of children: Not on file Years of education: Not on file Highest education level: Not on file Occupational History Not on file Tobacco Use Smoking status: Former Smoker Packs/day: 1.00 Years: 20.00 Pack years: 20.00 Types: Cigarettes Start date: 07/19/1988 Quit date: 05/14/2018 Years since quittin.0 Smokeless tobacco: Former User Types: Chew Quit date: 07/19/1994 Substance and Sexual Activity Alcohol use: Not Currently Alcohol/week: 2.0 standard drinks Types: 2 Cans of beer per week Comment: stopped 05/14/2018 Drug use: No Sexual activity: Never Other Topics Concern Not on file Social History Narrative Not on file Social Determinants of Health Financial Resource Strain: Not on file Food Insecurity: Not on file Transportation Needs: Not on file Physical Activity: Not on file Stress: Not on file Social Connections: Not on file Intimate Partner Violence: Not on file Housing Stability: Not on file PHYSICAL EXAM BP 140/66 Pulse 78 Temp 98.3 F (36.8 C) (Oral) Resp 16 Ht 1.702 m (5' 7 ) SpO2 96% BMI 31.86 kg/m Smoking Status Former Smoker Physical Exam Vitals and nursing note reviewed. Constitutional: General: He is not in acute distress. Appearance: Normal appearance. He is not ill-appearing. HENT: Mouth/Throat: Mouth: Mucous membranes are dry. Pharynx: Oropharynx is clear. No oropharyngeal exudate or posterior oropharyngeal erythema. Eyes: General: No scleral icterus. Extraocular Movements: Extraocular movements intact. Cardiovascular: Rate and Rhythm: Normal rate and regular rhythm. Pulses: Normal pulses. Heart sounds: Normal heart sounds. No murmur heard. No friction rub. No gallop. Pulmonary: Effort: Pulmonary effort is normal. No respiratory distress. Breath sounds: Normal breath sounds. No stridor. No wheezing, rhonchi or rales. Abdominal: General: Abdomen is flat. Bowel sounds are normal. There is no distension. Palpations: Abdomen is soft. There is no mass. Tenderness: There is abdominal tenderness (Right lower quadrant and suprapubic). There is no guarding or rebound. Hernia: No hernia is present. Musculoskeletal: Cervical back: No muscular tenderness. Right lower leg: No edema. Left lower leg: No edema. Lymphadenopathy: Cervical: No cervical adenopathy. Skin: Capillary Refill: Capillary refill takes less than 2 seconds. Neurological: Mental Status: He is alert and oriented to person, place, and time. Comments: Moves all 4 extremities ED COURSE & MEDICAL DECISION MAKING Assessment: 52-year-old male with past medical history of liver and kidney transplant on March 2020 is transferred here from an outside ED due to an obstructive stone that is infected and FAYE. Physical exam is remarkable for tenderness to palpation over the right lower quadrant and suprapubic area DDx includes but is not limited to: Nephrolithiasis, UTI, FAYE Plan: Orders Placed This Encounter URINE CULTURE RAINBOW DRAW CBC, EDIF, PLATELET CHEM 6 (LYTES, BUN CREA) GLUCOSE HEPATIC FUNCTION PANEL LIPASE GOLD TOP TUBE MINT GREEN TOP TUBE LAVENDER TOP TUBE LT BLUE TOP TUBE CBC AND ELECTRONIC DIFF amLODIPine 5 MG tablet Tamsulosin HCl 0.4 MG capsule polyethylene glycol 17 g Pack packet ondansetron 4 MG tablet Morphine Sulfate (PF) injection 4 mg lactated ringers IV solution 1,000 mL cefTRIAXone (ROCEPHIN) 2 g in dextrose 50mL premix IVPB URINE DIPSTICK; REFLEX MICROSCOPY; REFLEX CULTURE URINE DIPSTICK; REFLEX MICROSCOPY; REFLEX CULTURE PERFORMABLE EXTRA MICRO URINE MICROSCOPIC WITH REFLEX TO CULTURE ED Course as of 05/15/222029 Marta May 15, 2022 1736 NITRITES, URINE: Negative 1736 LEUKOCYTE ESTERASE, URINE(!): Large 1736 RBC, URINE(!): >20 1736 WBC, URINE(!): 10-20 1736 SQUAMOUS EPITHELIAL CELLS, URINE: ABSENT 1736 CREATININE SERUM(!): 2.85 Baseline around 1.4 1737 WBC(!): 15.81 2028 Patient discussed with Urology. They recommend starting him on ceftriaxone, doing a urine culture, admitting him for the FAYE and infection. They are not as certain that the kidney stone is obstructing in the ureter or that explains the etiology of today's presentation. They recommend admission for medical management and possible nephrostomy tube by IR. Medical decission making: Stable vitals on presentation. Patient was given IV fluids and morphine for symptom control. Laboratory evaluation is remarkable for UTI and FAYE with an elevated white count. He was given ceftriaxone. Patient was discussed with Urology as above. Impression: UTI, FAYE Dispo: Admit to medicine This note was dictated with M-Modal. Every effort was made to correct grammatical mistakes but please excuse any incorrections. Matt Schneider MD Resident 05/15/222030 [facility] Work Phone: 05-15-2022 Emergency department Note Pt arrives from [facility] with kidney stones. Pt states he had right lower abd pain and right flank pain with blood in his urine since Thursday. Pt states he went to his local ED [place] and he was put on Flomax and he did improve. Pt states last night he was unable to void with severe right sided abd pain. Pt states nausea and no vomiting or fevers. Pt states he went back to [place] ED at 0100 and they placed a myers and CT scan completed and multiple kidney stones noted. Pt [facility] to [facility] ED as he had liver and kidney transplant in 03/2020. [facility] 03-14-2022 History of Present illness Narrative [facility] OUTREACH ADVANCED: Call Information: Date and Time of Contact: 03/14/2022 5:01 PM Method of Contact: By Phone Contact Type: Prescriptions Contactor: [facility] OP Contactee: Patient Shipping/Pickup: Medicare B Refill?: No Medication Name: Mycophenolate sodium 180 mg and tacrolimus 0.5 mg Delivery Method: Air Delivery Location: Home Signature Required: No Mailing/Pickup Date: 03/17/2022 Shipping Address: [address] [place] [address] [address] Contact Info: Specialty ([place]) [phone] [facility] [phone] [facility] [phone] David [phone] Bedside Delivery ([facility]) [phone] documented in this encounter [facility] 06-14-2021 History of Present illness Narrative [facility] OUTREACH: Pre-Verification: Medication(s) Name: Tacrolimus and mycophenolate Lab Review: CBC w/diff, Drug level, Chem 6 (with GFR) and Hepatic function panel Drug interactions reviewed: relevant drug interactions were evaluated by pharmacist Clinically relevant drug interaction identified: Interactions: Drug management plan: Drug interaction education provided to patient? () Drug interactions reviewed: Clinically relevant drug interaction identified: relevant drug interactions were not identified by pharmacist Interactions: Drug management plan: Drug interaction education provided to patient? () Specialty Assessment: Assessment type: Re-Assessment Specialty Assessment Review: Name, Age, Sex Demographics Therapeutic Goals Health Problems/Diagnoses/Comorbidities Pertinent Medical History Adverse Effects with Enrolled (and related) Medications Recent Labs Medications (dose, route, frequency, and interactions) Allergies Dietary Requirements Patient Comprehension Appropriate Use Adherence Specialty Medication Management Mental Reasoning, Judgement, Orientation, and Memory Financial Resources Usual Environment Functional Limitations Emergency Contact(s) Person(s) responsible for care Care Plan Activities Completed: Updated Assessment Findings: Kidney and liver transplant 04/13/20. Current IS: tacrolimus 1.5 mg BID and mycophenolate 360 mg BID. Reassessment completed through chart note, lab, and fill history review. No adherence, safety, or efficacy issues identified. Patient's ability to Self-Administer Oral Medication(s): Can self-administer oral medications Re-Assessment Benefit: Receiving benefit Patient Will Continue Therapy: Confirms Monitoring Parameters Assessment: Were assessed Monitoring Parameter Review: Within normal limits Re-Assessment Due: 05/16/22 Goal Progress: Satisfactory Contact Info: Specialty ([place]) [phone] Jakob [phone] [facility] [phone] [facility] [phone] Bedside Delivery ([facility]) [phone] [facility] RX OUTREACH: Call Information: Date and Time of Contact: 06/14/2021 11:59 AM Method of Contact: By Phone Contact Type: Prescriptions Contactor: [facility] Contactee: Patient Shipping/Pickup: Mailing/Pickup Date: 06/17/2021 Medicare B Refill: Yes Med B Name: mycophenolate 180 Days Remainin Supply Exhausted On: 06/21/2021 Med B Name: tacrolimus 0.5 Days Remainin Supply Exhausted on: 06/21/2021 Delivery Method: Air Delivery Location: Home Signature Required: Yes Shipping Address: [address] [place] [id number] Contact Info: Specialty ([place]) [phone] [facility] [phone] [facility] [phone] [facility] [phone] Bedside Delivery ([facility]) [phone] documented [facility] encounter [facility] Diagnosis FAYE (acute kidney injury)- Primary Acute kidney failure, unspecified Hydronephrosis due to obstruction of ureteral orifice Hydronephrosis due to obstruction of ureteral orifice FAYE (acute kidney injury) Acute kidney failure, unspecified [facility] Diagnosis Follow-up exam- Primary Unspecified follow-up examination [facility] Diagnosis Immunosuppressed status- Primary Unspecified disorder of immune mechanism Kidney replaced by transplant Liver replaced by transplant Abnormal blood chemistry Other abnormal blood chemistry High risk medication use Encounter for long-term (current) use of other medications Aftercare following organ transplant Liver transplant recipient [facility] Diagnosis Attention to nephrostomy- Primary [facility] Diagnosis Other hydronephrosis- Primary [facility] Diagnosis FAYE (acute kidney injury) Acute kidney failure, unspecified [facility] Diagnosis Other hydronephrosis- Primary -donor kidney transplant recipient Kidney replaced by transplant [facility] Diagnosis Other hydronephrosis [facility] Diagnosis 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) Encounter for screening for malignant neoplasm of prostate Special screening for malignant neoplasm of prostate [facility] Diagnosis Abnormal blood chemistry- Primary Other abnormal blood chemistry Liver transplant recipient Kidney replaced by transplant Immunosuppressed status Unspecified disorder of immune mechanism Aftercare following organ transplant [facility] Diagnosis Kidney replaced by transplant- Primary [facility] Diagnosis Immunosuppressed status- Primary Unspecified disorder of immune mechanism Kidney replaced by transplant Aftercare following organ transplant High risk medication use Encounter for long-term (current) use of other medications Other general symptoms and signs Abnormal blood chemistry Other abnormal blood chemistry Hypertension secondary to other renal disorders [facility] Diagnosis Histoplasmosis- Primary Histoplasmosis, unspecified without mention of manifestation Abnormal CT of the chest Nonspecific (abnormal) findings on radiological and other examination of other intrathoracic organs Immunosuppressed status Unspecified disorder of immune mechanism Acute respiratory failure with hypoxia Acute respiratory failure Hypoxia Hypoxemia Histoplasmosis Histoplasmosis, unspecified without mention of manifestation -donor kidney transplant recipient Kidney replaced by transplant Fever Fever, unspecified [facility] Consultation (Routine) - New Request Specialty Diagnoses / Procedures Referred By Deni edwards Referred To Contact Interventional Radiology Diagnoses Hydronephrosis due to obstruction of ureteral orifice Daya Saldana MD [address] [place] [address] Referral ID Status Reason Start Date Expiration Date V isits Requested Visits Authorized [id number] New Request 05/18/2022 06/12/2023 1 1 * Radiology (Emergency) - New Request Specialty Diagnoses / Procedures Referred By Deni edwards Referred To Contact Procedures US RENAL TRANSPLANT SCAN Daya Saldana MD [address] [place] [address] Referral ID Status Reason Start Date Expiration Date V isits Requested Visits Authorized [id number] New Request 05/16/2022 06/10/2023 1 1 * Consultation (Routine) - New Request Specialty Diagnoses / Procedures Referred By Deni edwards Referred To Contact Urology Diagnoses FAYE (acute kidney injury) Ryan Yepez MD [address] [facility] [address] [place] [address] Referral ID Status Reason Start Date Expiration Date V isits Requested Visits Authorized [id number] New Request 05/16/2022 06/10/2023 1 1 * MRI/CAT Scan (Routine) - New Request Specialty Diagnoses / Procedures Referred By Contac t Referred To Contact Diagnoses FAYE (acute kidney injury) Procedures CT ABDOMEN/PELVIS WITHOUT CONTRAST CHG CT SCAN,ABDOMENT AND PELVIS,W/O CONTRAST Ryan Yepez MD [address] [place] [address] Referral ID Status Reason Start Date Expiration Date V isits Requested Visits Authorized [id number] New Request 05/16/2022 06/10/2023 1 1 * (Routine) - Pending Review Specialty Diagnoses / Procedures Referred By Contac t Referred To Contact Procedures PLATELET MONITORING PER PROTOCOL Daya Saldana MD [address] [place] [address] Referral ID Status Reason Start Date Expiration Date V isits Requested Visits Authorized [id number] Pending Review 05/15/2022 06/09/2023 1 1 * (Routine) - Pending Review Specialty Diagnoses / Procedures Referred By Contac t Referred To Contact Procedures DVT/VTE RISK ASSESSMENT Daya Saldana MD [address] [place] [address] Referral ID Status Reason Start Date Expiration Date V isits Requested Visits Authorized [id number] Pending Review 05/15/2022 06/09/2023 1 1 * (Routine) Specialty Diagnoses / Procedures Referred By Contac t Referred To Contact Evan Bennett MD [address] [place] [address] Referral ID Status Reason Start Date Expiration Date Visits Re quested Visits Authorized * (Routine) Specialty Diagnoses / Procedures Referred By Contac t Referred To Contact Evan Bennett MD [address] [place] [address] Referral ID Status Reason Start Date Expiration Date Visits Re quested Visits Authorized [facility] for referral (narrative)* Consultation (Routine) - New Request Specialty Diagnoses / Procedures Referred By Contac t Referred To Contact Sleep Medicine Diagnoses Hypoxia Kevin Sage MD [address] [place] [phone] Referral ID Status Reason Start Date Expiration Date V isits Requested Visits Authorized [id number] New Request 09/10/2023 10/04/2024 1 1 * MRI/CAT Scan (Routine) - New Request Specialty Diagnoses / Procedures Referred By Contac t Referred To Contact Diagnoses Histoplasmosis Procedures CT CHEST WITHOUT CONTRAST CHG DIAGNOSTIC COMPUTED TOMOGRAPHY THORAX W/O CNTRST Kevin Sage MD [address] [place] [address] Referral ID Status Reason Start Date Expiration Date V isits Requested Visits Authorized [id number] New Request 09/10/2023 10/04/2024 1 1 * Radiology (Routine) - New Request Specialty Diagnoses / Procedures Referred By Deni t Referred To Contact Procedures US RENAL TRANSPLANT SCAN Steve Latham MBBS [address] [place] [address] Referral ID Status Reason Start Date Expiration Date V isits Requested Visits Authorized [id number] New Request 08/29/2023 09/22/2024 1 1 * (Routine) - New Request Specialty Diagnoses / Procedures Referred By Contac t Referred To Contact Procedures PLATELET MONITORING PER PROTOCOL Steve Latham MBBS [address] [place] [phone] Referral ID Status Reason Start Date Expiration Date V isits Requested Visits Authorized [id number] New Request 08/28/2023 09/21/2024 1 1 * (Routine) - New Request Specialty Diagnoses / Procedures Referred By Contac t Referred To Contact Procedures DVT/VTE RISK ASSESSMENT Steve Latham MBBS [address] [place] [phone] Referral ID Status Reason Start Date Expiration Date V isits Requested Visits Authorized [id number] New Request 08/28/2023 09/21/2024 1 1 [facility] Instructions * Patient Instructions - Christin Elizabeth APRN-LIFE INSURANCE SPECIALIST - 10/19/2018 9:21 AM EST You should take an extra dose of the lactulose as needed so that you are having 3-4 bowel movementsdaily. You should start the chemical dependency counseling as soon as possible. If you have questions, call the transplant oncology social worker Melania Pierson. in this encounter* Patient Instructions - Sophie Cary RN - 10/12/2018 11:09 AM EST You have been seen in the pre-transplant evaluation clinic by Dr. Restrepo and Sophie Cary. Sophie Cary is your pre-coordinator mining products she can be reached at [phone] at any time for questions during the pre-transplant process. Your evaluation is complete pendin. Abdominal ultrasound. 2. 6 minute walk test. 3. Cardiology evaluation. Additionally, your platform engineer will recommend testing to screen for coronary artery disease. This will be scheduled for you after your cardiology visit. 4. Your coordinator will be requesting record from your last dental visit, colonoscopy and EGD. 5. Please work to complete social work recommendations. Your oncology social worker will be contacting you to follow up on your progress. 6. You have also been referred for a kidney transplant. An appointment will be scheduled for you sari evaluated in the kidney transplant clinic after you have satisfied requirements dictated by [employer] company. Once your testing is complete, we will review your case at patient selection committee for possiblelisting on the liver transplant waitlist. in this encounter History of Present Illness * Lindsay Perdomo - 10/19/2018 9:00 AM EST Formatting of this note may be different from the original. What are the top 2 things you would like to talk to your Provider about: 1. 2. Please check all that apply below: Please state when and where I have changed my medications since my last visit? I have been hospitalized since my last visit? ---- Where and Why I have had surgery performed since my last visit? ---- Where and What I have been diagnosed with new medical problems since my last visit? Last Colonoscopy 06/16 Result Last EGD Result Have you had any new scans, x-rays or other tests related to your diagnosis that was not ordered byyour provider? Please check the symptoms that you are CURRENTLY having below GENERAL EYES GASTROINTESTINAL PSYCHOLOGICAL ____Fever ____Blurring ____ Appetite Change ____Anxiety ____Chills ____Eye Pain ____Indigestion ____ High Stress ____Sweats ___ Other ____Nausea ____Vomiting ____Depression ____Fatigue RESPIRATORY ____Yellow Skin Color ___ Other ____Weakness ____Cough ___ Bloody _+___Gas EARS, NOSE AND THROAT ____Weight Loss /Gain ____Shortness of Breath ____Abdominal Pain ____Ringing in Ears ___ Other ____Wheezing ____Abdominal Bloating ____Difficulty Swallowing CARDIOVASCULAR ___ Other __+__Hemorrhoids ____Hoarseness ____Chest Pain or Discomfort MUSCULOSKELETAL _+___Diarrhea ____Sore Throat ____Lightheadedness ____Muscle Cramps ____Change in Bowel Habits ___ Other ____Palpitations ____Joint Pain ____Constipation ENDOCRINE ____Swelling of Hands or Feet ____Stiffness ____Dark, Tarry Stools ____Excessive Hunger ____Fainting ___ Other ____Blood in the Stools ____Cold /heat Intolerance ___ Other DERMATOLOGICAL ___ Other ____Excessive Urination GENITOURINARY ____Excessive Perspiration NEUROLOGICAL ____Excessive Thirst ____Blood in Urine ____Poor Wound Healing ____Numbness ____Weight Change ____Kidney Pain ____Rash ____Seizures ___ Other ____Excessively Heavy Periods ___ Other ____Weakness ALLERGY ____Abnormal Vaginal Bleeding HEMATOLOGY ____Tremors ____Reaccuring Infections ___ Other ____Bleeding ____Memory Loss ____Hives or Rash ____Abnormal Bruising ___ Other ___ Other ___ Other Name MRN * Christin Elizabeth, BODY DESIGN CHECKER-LIFE INSURANCE SPECIALIST - 10/19/2018 9:00 AM EST Formatting of this note may be different from the original. History of Present Illness: Chief Complaint Patient presents with Follow-up Cirrhosis George Styles is a 48 y.o. male who presents to the [facility] today regarding his diagnosis/chief complaint(s) of Cirrhosis secondary to ETOH, with ESRD follows with Dr. Orr. Currently undergoing evaluation for liver/kidney transplant. Has been seen in transplant clinic for eval. Still undergoing pre testing. Diagnosed in April 2018. Last drink was immediately prior to hospital admission in [place] for ACLF. Hospital course notable for ARF that ultimately progressed and required HD, which has continued. Hemodialysis M,W,F. No increased fluid retention, no ascites noted, no LE edema noted. Pt is having some mild symptoms of HE today. He says he is taking his lactulose, was having 3-4 stools daily until yesterday when he only had one bowel movement. He is taking the Xifaxan. Pt has not started his CD counseling yet. He says he is going to set this up locally. He acknowledges that he was provided resources by the transplant SW. Pt lives alone, but his brother lives down the street and checks in on him daily. He was alone today in clinic, had medical transportation. RUQ US today- cirrhosis, no HCC. I have reviewed his extensive medical, surgical, family and social history and have updated medication and allergy information in the computerized patient record. Review of Systems Constitutional: Positive for malaise/fatigue. Negative for weight loss and weight gain. Skin: Negative. Eyes: Negative. Cardiovascular: Negative. Respiratory: Negative. Gastrointestinal: Negative for nausea, vomiting, abdominal pain, diarrhea, constipation, blood in stool and melena. Musculoskeletal: Negative. Neurological: Negative. Negative for loss of consciousness. Psychiatric: Positive for memory loss. Negative for insomnia.Negative for substance abuse. Lymph/Heme: Negative No Patient Care Coordination Note on file. Patient Active Problem List Diagnosis Alcoholic cirrhosis Pre-transplant evaluation for liver transplant Past Medical History He has a past medical history of Acute renal failure; Cirrhosis; Dialysis patient; End stage renal disease (06/30/2018); Hepatic encephalopathy; and Liver cirrhosis. He also has no past medical history of Anemia; Arrhythmia; Arthritis; Asthma; Bleeding disorder; CAD (coronary artery disease); Cardiac angina; Congestive heart failure; COPD (chronic obstructive pulmonary disease); Depression; Diabetes mellitus; Difficult intubation; Essential hypertension, benign; Glaucoma; Hepatitis; HIV (human immunodeficiency virus infection); Hyperlipidemia; Hyperthyroidism; Hypothyroidism; CA (myocardial infarction); Migraine; DARLENE (obstructive sleep apnea); Pacemaker; Seizure; Sickle cell anemia; Stroke;TIA (transient ischemic attack); or Vascular disease. Past Surgical History: Procedure Laterality Date OTHER SURGICAL 04/2018 Right chest dialysis cather- ANKLE SURGERY Right plate in ankle Current Outpatient Prescriptions Medication Sig aspirin 81 MG Chew Tab chewable tablet Chew 81 mg daily. lactulose 20 g Pack Take 20 g by mouth 3 times daily. midodrine 5 MG Tab tablet Take 10 mg by mouth daily as needed. Iv durning Dialysis Midodrine HCl 10 MG Tab tablet Take 1 tablet by mouth as needed. RifAXIMin (XIFAXAN PO) Take by mouth. sevelamer 800 MG Tab tablet Take 800 mg by mouth 3 times daily with meals. No Known Allergies Social History Social History Narrative No narrative on file Substance Abuse History He reports that he quit smoking about 5 months ago. His smoking use included Cigarettes. He startedsmoking about 30 years ago. He has a 20.00 pack-year smoking history. He quit smokeless tobacco useabout 24 years ago. His smokeless tobacco use included Chew. He reports that he drinks about 1.2 ozof alcohol per week . He reports that he does not use drugs. Family History His family history includes Breast Cancer in his paternal aunt; Diabetes in his brother, father, maternal aunt, maternal grandmother, and mother; Heart Disease - Other in his brother, father, maternal grandfather, maternal grandmother, mother, paternal grandmother, and sister; Hypertension in his brother, father, maternal grandfather, maternal grandmother, mother, and paternal aunt; Lung Cancer in his maternal grandfather and maternal grandmother; Stroke in his father and mother. Physical Exam Blood pressure 144/76, pulse 92, resp. rate 16, height 1.727 m (5' 8 ), weight 79.3 kg (174 lb 12.8oz), SpO2 99 %. Constitutional: He is oriented to person, place, and time and well-developed, well-nourished, and in no distress. He appears not jaundiced. He appears not cachectic. HENT: Head: Normocephalic. Mouth/Throat: Oropharynx is clear and moist. Eyes: No scleral icterus. Neck: Neck supple. Cardiovascular: Normal rate and regular rhythm. No murmur heard. Pulmonary/Chest: Breath sounds normal. Temporary Dialysis catheter intact, dressing dry and intact. Abdominal: Soft. soft, non-tender. Bowel sounds normal. No masses, no organomegaly Musculoskeletal: He exhibits no edema. Lymphadenopathy: He has no cervical adenopathy. Neurological: He is alert and oriented to person, place, and time. Gait normal. Skin: Skin is warm and dry. + petechiae noted. + erythema. Assessment and Plan Cirrhosis secondary to ETOH, ESRD on hemodialysis. Currently undergoing L/K transplant evaluation. CD evaluation- has not started yet. Plan: 1. Reviewed CD criteria for transplant again and encouraged pt to get this started as soon as he can. If he has questions, he can call the transplant SW for assistance. 2. Instructed to increase his lactulose as needed so that he is having 3-4 stools daily. 3. FU 12 weeks. in this encounter* Melania Pierson LISWS - 10/12/2018 10:00 AM EST Formatting of this note may be different from the original. Transplant Recipient Psychosocial Evaluation Demographics: Patient is a 48 y.o., White, Single, male, who presented for a liver and kidney transplant evaluation. Pt was AOx3. Transplant Controls Engineer role/function was explained and reviewed. The patient was informed that the results of this assessment will be shared with the referring provider and the transplant team. The patient verbalized understanding of this information. The [facility] psychosocial assessment consent form has been explained to patient and has been signed. Pt is completing this evaluation with brother (David) in the Outpatient setting. NANCYK educated pt on the benefits of completing/filing advanced directives and resources were offered. Pt identifies with [employer] taoist. Pt confirms being a [place] Citizen. Pt.'s primary language is [place]. Pt confirms the ability to read,write, and understand [place]. Pt denies potential donors. Donor cards and resources provided to include discussion regarding living donation, checklist to prepare for donation and financial assistance available. Education: Pt s highest level of education is high school. He denies a history of developmental delay or learning disabilities. Pt is literate. Pt reports current or history of encephalopathy ( most recent episode about a week ago after dental appt. ) that may have impacted cognitive state. He admits to Pt confirms (focus) recent changes to memory, concentration, or attention. Functional Status: Pt denies having a home health provider. Pt uses walker (rolling walker after dialysis treatments-since started daily) as DME. Pt reports using no oxygen. Pt was encouraged to prepare to utilize vitals equipment post-transplant. Pt reports that he has valid license, does not regularly drive ([facility] recommends that he not to drive). He reports availability of family or friend driving, public transportation (David, brother Tyshawn, sister in law Beverley& Mary) for additional assistance. He reports vision (blurry appt on Thursday) impairments. 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 Pt is on hemodialysis (3.0 started dialysis in April). Pt was diagnosed with organ related disease etoh cirrohosis April dx in [facility] for thirty days. Pt reports learning that he may need a transplant within the last year. Histransplant history includes referred in the past. Pt attended transplant education with brother (David). Pt demonstrated limited understanding of transplant. He identified Benefits/Risks of transplant, Length/course of hospitalization, Post- transplant follow up related to transplant. Swk encourage patient to review educational materials he was given as well as referred him to pre coordinator mining products. Pt and support demonstrated moderate understanding of pt s current medical regimen and healthhistory. Patient and social work discussed the importance of pt follow up at the transplant center for ongoing care and discussed benefits of having access to resources available including medication assistance and financial counseling. Patient and support received transplant education material. Swk encouraged patient to review all medical information and medical questions with transplant nurse coordinator or physician throughout the process. Willingness/Desire for Transplantation: Pt reports that Physician/Specialist suggested transplant to pt. Pt reports that his reaction aftertransplant suggestion included surprised (uncle had a kidney trpt, ). He appears motivated towards transplant. Pt reports that he is motivated for transplant because get better, get back out in workforce. Pt denies concerns regarding transplant. Medical Adherence: Patient denies having difficulty following medical recommendations. There is evidence (alarm on phone) of pt having difficulty following medical recommendations per chart review. Per note from 06/22/2018, he was non adherent with his lactulose [but has not taken it for the last 3 days.] He denies mi ssing/stopping dialysis early or arriving late. He admits to rescheduling due to hospitalizations. Pt organizes his medical appointments with the assistance of calendar, a phone alarm, telephone reminders. Pt organizes his medications by counting pills daily, using a pillbox. Pt is aware of medication regimen. Pt denies past or current difficulties with taking medications. Pt s care is Self-directed. Patient educated on the importance of demonstrating ongoing adherence and ability to continue follow treatment recommendations. Support/Caregiver: Patient lives alone in a single story house. Patient plans on discharging to his brother David home for post-transplant care. Pt s primary support team will include brother- David and his spouse Beverley she doesn't work and is available to help. Patient's brother David is a self employed construction contractor. Additional support includes his other brother Tyshawn and his Mary live fifteen minutes away. Of note Mary is a merchandising consultant for a [employer] is available to assist emergency department clinician. He confirms being comfortable asking for help. Pt denies being a caregiver for someone else. Pt s support appears actively engaged, to attend appointments with recipient, understanding of the caregiver role, to be strong/stable support, to have history of long-term relationship, to be able to provide transportation. There will be no need to relocate post-transplant. Pt was encouraged to discuss needs with family and friends to ensure that he has appropriate care post- surgery. Patient educated on the importance of having support person available for emotional and physical care needs. Financial: Pt stopped working in 2010, he was employed by the [employer]. He has access to SSDI payment (SSDI starts in November) in regards to financial means pre/ post-transplant. Pt confirms (meeting bills currently, ) being able to meet daily needs. Patient's brother asking for additional information on community resources, food stamps and [place]. Refer him to pt.'s dialysis center and the [facility]. Hereports access to Medicaid. Pt. denies history. Swk encouraged patient to identify a post-transplant financial plan and encouraged pt. to keep in contact with transplant team of any financial changes or benefit needs. Patient was given educational packet with additional resources for fund raising, lodging, and benefit information. Mental Health: Patient denies an endorsement of a mental health history, including a diagnosis of: None. Patient denies current daily functioning concerns, he does admit to Difficulty sleeping (too much/too little), Fatigue/loss of energy. Pt denies current or history of outpatient mental health counseling. Pt denies current or history of psychotropic medication use. He denies a history of psychiatric hospitalization(s). Patient denies a history of abuse. Pt confirms feeling safe in his/her current environment/relationship. He denies current or history of self- harm, suicidal ideation or homicidal ideation.Pt reports watching/playing sports, watching television as ways to cope. Patient was educated on the availability of mental health resources and access to the Transplant Health Psychologist. Mental Status Exam: Appearance: neat Motor: normal Attention: average/normal Affect: reactive, appropriate Impulse Control: good Insight: good Judgment: good Mood: euthymic Speech: normal Thought Process: linear, goal-directed Alcohol and Substance Use: Pt does endorse a history of smoking cigarettes starting at age [age], last tobacco use was April2018, frequency of use PPD. He does report a history of smokeless tobacco use in high school no ongoing use. Pt does endorse history of alcohol use, describes his heaviest use was [age] pack of beer and maybe some shots here and there. Patient does not endorse current or history of substance use. Pt confirms a history of attending alcohol or drug treatment. Patient does report a history of AoD treatment, 1999 court ordered treatment after a DUI charge [facility] in [place], court ordered treatment in 2001 and in 2011. He describes attending out patient treatment for approximately three months and reports attending a three day intervention program one time after a DUI. Pt denies being prescribed chronic pain medication. Pt denies working with a pain management doctor. Patient describes his pain tolerance as medium. He denies any current legal issue that may impact the transplant process. Most recent AoD attendance was in 2011, per letter provided by patient from his primary medical provider- [facility] INS[facility] SPECIALIST patient was noted as attending an alcohol education seminar in 2013. He denies this as being treatment his brother reports he was working for him and he required anyone working with him to attend a one day education seminar to be able to work on public jobs it's a requirement. He confirms a history of four DUI convictions 1993,1996,2001, 2011. Patient does admit to experiencing withdrawal symptoms to include tremors, history of blackouts, period of longest sobriety four half months. Family history of alcohol concerns with his paternal uncles, admits to his alcohol consumption affecting his employment in the past. Based on evaluation, pt meets criteria for Alcohol Use Disorder. He was provided with local AOD resources, [facility] AOD informational packet. Pt was referred for AOD assessment/treatment based on evaluation, corroborating information from support, external documentation, and medical record information. Patient was educated on the [facility] criteria, signed the contract and agreed to attend AoD treatment. First Use Last Use Frequency Amount Method Tobacco 2017 (April 2018 ) ; daily ; PPD ; smokeless tobacco use quit 24 yrs ago, thirty yr. packsmoking history (here and there in high school ) Alcohol 2017 ( still drinking 8-18-1.2oz wk, April 2018 prior to hospital) ; daily (heaviest use more then 18 beers daily, some whiskey here ) ; 18 pk beer or more, includes shots ; beer Marijuana Heroin Cocaine Prescription Meds Other Substances Psychosocial impression: Patient is indicated by score as a Minimally Acceptable Candidate. From a psychosocial perspective at this time based on the SIPAT score of 34 with 3 points due to tobacco use. The current identified risk factors to include: limited understanding, mild psychopathology, medical induced psychopathology, current or past nicotine use, substance or alcohol use disorder, AOD riskof recidivism . Patient meets diagnosis of alcohol use disorder, was recommended to attend AoD treatment and randomtoxicology screens. Patient voices understanding that his current insurance provider has also required he complete AoD treatment along with the [facility]OTC criteria. Patient given a copy of AoD packet and has identified an agency in his community where he can attend treatment. Patient{HAS HAS NOT: has signed the [facility] expectation list and [facility] recommendation list. Patient s brother- David has signed the support person agreement. Based on pt. s presentation, it appears that pt. has been forthcoming with evaluation information. Psychosocial evaluation information shared with the multidisciplinary team for continuity of care. Remediation: Given the information obtained and risk factors identified, the following remediation plan was developed and discussed with the patient: monitor patient's medical compliance, CTC financial referral, follow-up with community resources, alcohol and drug treatment referral, [facility] alcohol and drug packetgiven, random toxicology screens, smoking cessation information given The previous assessment was conducted by means of corroborating information from patient's chart review, support person(s) report, multiple evidence based clinical tools and a modified version of theStanford Integrated Psychosocial Assessment for Transplant (SIPAT) and the SIPAT-General TXP Long Form Ming et al, 2008; Ming et al, Psychosomatics 2012. * Alfredito Restrepo MD - 10/12/2018 10:00 AM EST Formatting of this note may be different from the original. Pretransplant new visit Date of service: 10/12/2018 -Referring sandblaster stone for today's consult: -Primary Care Provider: Zuly Bruno CC: Chief Complaint Patient presents with Liver Recipient Evaluation History of Present Illness George Styles is a 48 y.o. male who presents to the [facility] liver transplant surgery clinic today for evaluation for placement on the waiting list. The patient is known to have liver cirrhosis due to ETOH. His course was complicated by the development of chronica renal disease and he is currently on dialysis. He was diagnosed in April of 2018. Past Medical History He has a past medical history of Acute renal failure; Cirrhosis; Dialysis patient; End stage renal disease (06/30/2018); Hepatic encephalopathy; and Liver cirrhosis. Past Surgical History He has a past surgical history that includes other surgical (04/2018) and ankle surgery (Right). Family History His family history includes Breast Cancer in his paternal aunt; Diabetes in his brother, father, maternal aunt, maternal grandmother, and mother; Heart Disease - Other in his brother, father, maternal grandfather, maternal grandmother, mother, paternal grandmother, and sister; Hypertension in his brother, father, maternal grandfather, maternal grandmother, mother, and paternal aunt; Lung Cancer in his maternal grandfather and maternal grandmother; Stroke in his father and mother. Social History He reports that he quit smoking about 4 months ago. His smoking use included Cigarettes. He startedsmoking about 30 years ago. He has a 20.00 pack-year smoking history. He quit smokeless tobacco useabout 24 years ago. His smokeless tobacco use included Chew. He reports that he drinks about 1.2 ozof alcohol per week . He reports that he does not use drugs. Medications Outpatient Medications Prior to Visit: aspirin 81 MG Chew Tab chewable tablet, Chew 81 mg daily. lactulose 20 g Pack, Take 20 g by mouth 3 times daily. midodrine 5 MG Tab tablet, Take 10 mg by mouth daily as needed. Iv durning Dialysis Midodrine HCl 10 MG Tab tablet, Take 1 tablet by mouth as needed. sevelamer 800 MG Tab tablet, Take 800 mg by mouth 3 times daily with meals. Allergies Patient has no known allergies. Review of Systems Constitutional: No fever, no wt loss, no night sweating. HENT: Negative. Cardiovascular: Negative. Pulmonary: No SOB, No hx of cough GI: no hx of recent bleeding Musculoskeletal: Negative. Psychiatric: Negative. Lymph/Heme: Negative. Urologic: no dysuria Skin: no hx of skin lesions or cancers Patient denies ascites, LE edema, SOB, hematemesis, melena, BRBPR, confusion, forgetfulness or reversal in sleep wake cycle. Other systems review was negative Physical Exam Vitals: 10/12/18 0950 BP: 157/80 Pulse: 94 Temp: 98.6 degrees F (37 degrees C) TempSrc: Oral Weight: 78.3 kg (172 lb 9.6 oz) Height: 1.695 m (5' 6.75 ) Body mass index is 27.24 kg/m . Constitutional: Alert, oriented, well-developed, Breathing easily, and in no acute distress. mild cachetic HEENT: Atraumatic, normocephalic Mouth/Throat: Oropharynx is moist without exudate or lesions. some missing teeth. Eyes: Gross vision and extraocular eye motions are intact and equal, non-icteric. Neck: Supple, symmetric. No adenopathy, tenderness or nodules. Cardiovascular: Regular rate and rhythm. No murmur heard. No JVD Pulmonary/Chest: Breath sounds clear to auscultation bilaterally without wheezes or rales. Nails without clubbing Abdominal: Soft. No distention, No tenderness. No palpable ascites. No palpable masses. Bowel sounds are present in all quadrants. good size reduced umbilical hernia. Musculoskeletal: Extremities warm, well-perfused without cyanosis, + distal pulses, exhibits No pretibial or pedal edema. Full range of motion to extremities, strength 5/5 Lymphadenopathy: No cervical, supraclavicular or infraclavicular lymphadenopathy Skin: Warm, dry with good skin turgor without rashes or lesions. Neurological: Alert and oriented. no focal deficits. Psychiatric: Mood and tone appropriate to situation Laboratory Evaluation No results found for: WBC, HGB, HCT, PLATELET HCO3 Date Value Ref Range Status 10/06/2018 17.8 (L) 22.0 - 26.0 mmol/L Final No results found for: PT, PTT, TP, ALBUMIN, AST, ALT, GGT, BILITOTAL, CALCIUM, PHOSPHORUS, MAGNESIUM,INR/Prothrombin Time No results found for: INR Diagnostic Studies EKG: (NEEDS) CXR: 10/06/2018 FINDINGS: (Adequate technique) Tubes, Lines, and life support hardware: There is a right jugular central venous catheter with its tip within the inferior third of the SVC. Lungs: The lungs are clear. There are no pleural effusions. There is no pneumothorax. Cardiac, mediastinum, and hilum: The cardiomediastinal silhouette is within normal limits. Pulmonary Vessels: Normal, without PVH Bones, chest wall, and soft tissues: The visualized osseous structures are unremarkable. IMPRESSION: 1. No acute disease in the chest. MINAL Ultrasound: (NEEDS) Getting US because ESRD, dialysis dependant ECHO: 10/06/2018 Interpretation Summary Left Ventricle: Chamber size is normal. Concentric hypertrophy. Regional wall motion is normal. Ejection fraction normal (65 - 70%). Right Ventricle: Chamber size is normal. Systolic function is normal. Left Atrium: Chamber size is mildly enlarged. Septum: The atrial septum is normal. There is no evidence of a patent foramen ovale. Pericardium: Appears normal. No pericardial effusion. Findings Left Ventricle Chamber size is normal. Increased wall thickness. Concentric hypertrophy. Regional wall motion is normal. Ejection fraction normal (65 - 70%). Right Ventricle Chamber size is normal. Systolic function is normal. Left Atrium Chamber size is mildly enlarged. Right Atrium Chamber size is normal. Septum The atrial septum is normal. There is no evidence of a patent foramen ovale. Mitral Valve Normal appearing leaflets. Trace regurgitation. No valve stenosis. Aortic Valve Trileaflet valve. Non-specific thickening. No regurgitation. No stenosis. Tricuspid Valve Normal leaflets. No regurgitation. No stenosis. Pulmonic Valve No mass/vegetation is present. Aorta No dilation to extent seen. Pericardium Appears normal. No pericardial effusion. IVC/SVC The inferior vena cava structure has a diameter <21 mm and decreases >50% during inspiration. Wall Scoring Score Index: 1.000 Percent Normal: 100.0% The left ventricular wall motion is normal. Left Heart Measurements LV - Systole LVIDD 4.78 cm IVS 1.28 cm (A) LVIDS 3.03 cm PW 1.28 cm (A) LV RWT 0.54 LV Mass Index 123.1 g/m2 LV EDV BP 157 mL LV ESV BP 48 mL BP EF 69 LV - Diastole MV Peak E Meliton 1.19 m/s MV Peak A Meliton 0.83 m/s E/A ratio 1.43 e' septal pk meliton 0.09 m/s e' lateral pk meliton 0.08 m/s Average e' pk meliton 0.09 m/s E/e' septal ratio 13.22 E/e' lateral ratio 14.88 Avg E/e' ratio 14.05 LV - HCM AV LVOT peak gradient 7 mmHg Left Atrium LA size 4.8 cm LA ESV SP 4CH (MOD) 65 mL LA ESV SP 2CH (MOD) 81 mL LA ESV BP (MOD) index 38 mL/m2 Right Heart Measurements RV - 2D RV basal diam 3.92 cm RV mid diam 2.77 cm RV long diam 7.49 cm RV - Doppler TAPSE 2.5 RV S' 17.4 cm/s Right Atrium RA vol index 4CH (MOD) 26.8 mL/m2 RA area 4CH (MOD) 19.1 cm2 Pulm Vein - Doppler PV Peak D Meliton 0.91 m/s Pulmonary vein systolic peak velocity 0.81 m/s Pulmonary vein S2/D ratio 0.89 Great Vessels Aortic Root - End Diastolic Sinus 3.6 cm STJ 2.79 cm Ascending aorta 2.8 cm Doppler Measurements - Aortic Valve Stenosis LVOT diameter 2.4 cm LVOT area 4.52 cm2 LVOT peak meliton 1.34 m/s LVOT peak VTI 28.9 cm Stroke Volume 131 cm/mL Stroke volume index 67 Ao peak meliton 1.81 m/s Ao VTI 39.9 cm AV peak gradient 13 mmHG AV mean gradient 7 mmHg DI (VTI) 0.72 m/2 DI (Vmax) 0.74 VEGA (continuity Vmax) 3.35 cm2 VEGA index (continuity Vmax) 1.73 m/s VEGA (continuity VTI) 3.28 cm2 VEGA index (continuity VTI) 1.69 cm2/m2 LVOT stroke volume 131 cm3 LVOT stroke volume index 67.36 ml/m2 Doppler Measurements - Mitral Valve Stenosis MV Peak E Meliton 1.19 m/s MV Peak A Meliton 0.83 m/s E/A ratio 1.43 MV VTI 37 cm MV stenosis pressure 1/2 time 60 ms MV peak gradient 8 mmHg MV mean gradient 3 mmHg MV valve area p 1/2 method 3.67 cm2 MV valve area by continuity eq 3.53 cm2 PISA-MS MV Peak E Meliton 1.19 m/s Doppler Measurements - Pulmonic Valve Stenosis PV PK MELITON 1.48 m/s PV VTI 32.8 cm2 PV peak gradient 9 mmHg PV mean gradient 5 mmHg RVOT peak meliton 1.14 m/s RVOT peak VTI 25.2 cm RVOT peak gradient 5 mmHg Cardiology Evaluation: (SCHEDULED 11/19/2018) PFT/ABG/6 MIN WALK: PFT 6 Minute Walk (NEEDS TO BE RESCHEDULED. TEST NOT COMPLETED DUE TO HTN) Six minute walk: O2 LPM- FiO2% Rest Max SpO2 Heart Rate Blood Pressure Dyspnea CAROLYNN scale Leg Fatigue CAROLYNN scale Distance meters / feet Saturation Monitoring Location: Pt required rest periods times Ambulatory Assistance Required Type: ABG Results in Past 365 Days Result Component Current Result BASE EXCESS -6.0 (L) (10/06/2018) FIO2 21.0 (10/06/2018) HCO3 17.8 (L) (10/06/2018) O2 SATURATION 97.2 (10/06/2018) PCO2 30.7 (L) (10/06/2018) PH 7.381 (10/06/2018) PO2 94.8 (10/06/2018) SAMPLE SOURCE Arterial (10/06/2018) EGD: (NEEDS, ORDERED 09/10/2018) Assessment and Plan Encounter Diagnoses Name Primary? Alcoholic cirrhosis, unspecified whether ascites present ESRD (end stage renal disease) on dialysis Pre-transplant evaluation for liver transplant George Styles is a 48 y.o. male who presents to the [facility] liver pretransplant clinic for surgical evaluation for liver transplant waiting list. Etiology: ETOH HCC: No ETOH: Yes Last Use: April 2018 Refractory Ascites: No Hydrothorax: No Previous Abdominal Surgery: No TIPS: No PVT: Unknown, US scheduled 10/19/2018 RVSP: Not noted on report HCV: No The above imaging studies have been reviewed Absolute contraindications: none Relative contraindications: none Major concerns: ETOH Needs to complete evaluation Needs umbilical hernia repair I have reviewed his extensive medical, surgical, and had a detailed discussion with the patient. All his questions were answered. We discussed most of the aspect of liver transplant surgery, risks and benefits. We will discuss the case at the liver PSC meeting following completion of evaluation. Functional Status Assessment: 60% 100% - Normal, no complaints, no evidence of disease 90% - Able to carry on normal activity; minor symptoms of disease 80% - Normal activity with effort; some symptoms of disease 70% - Cares for self; unable to carry on normal activity or active work 60% - Requires occasional assistance but is able to care for needs 50% - Requires considerable assistance and frequent medical care 40% - Disabled; requires special care and assistance 30% - Severely disabled; hospitalization is indicated, is not imminent 20% - Very sick, hospitalization necessary; active treatment necessary 10% - Moribund, fatal processes progressing rapidly Unknown * Elisa Tiwari, TRANSLITERATOR - 10/12/2018 10:00 AM EST Timed up and go 9.9 seconds Tape Fastener Machine Operator Left 52.8 pounds Right 44.9 pounds Waist circ 38.5 inches * Sophie Cary, SAMI - 10/12/2018 10:00 AM EST Formatting of this note may be different from the original. Patient George Styles ([id number]), accompanied by his brother, was seen on 10/12/2018 for evaluation forliver transplant. The patient completed and participated in the education session previously and was able to verbalize understanding of the transplant process and requirements. Patient and present support asked appropriate questions and demonstrated understanding of answers. Medical history and current medications were reviewed with the patient. Patient is being evaluated for liver transplant related to diagnosis of ETOH cirrhosis. Patient also ESRD, referred for kidney transplant. MWF dialysis. Patient endorsed medical/surgical history of: Past Medical History: Diagnosis Date Acute renal failure Cirrhosis Dialysis patient T, Th, Sa- Started 06/01/2018 End stage renal disease 06/30/2018 Hepatic encephalopathy Liver cirrhosis Past Surgical History: Procedure Laterality Date OTHER SURGICAL 04/2018 Right chest dialysis cather- ANKLE SURGERY Right plate in ankle Current symptoms of liver disease include fatigue. Patient also reports intermittent symptoms of hepatic encephalopathy. Medications and allergies were reviewed. Patient had echo on 10/06/2018 with anEF of 65-70%. The RVSP is not noted. Patient endorses past use of tobacco, quit 04/2018. Patient endorses past use of alcohol. Last drink 04/2018. Patient reports no use of illegal drugs. Social work, nutrition and transplant surgeon also evaluated this patient. Patient s case will be presented at liver patient progress committee on Thursday and will be discussed by the multidisciplinary team and discussed at Liver Patient Selection Committee when evaluation is complete. George Styles has no further concerns or questions today and understands that we will be in touch after the liver patient selection committee has discussed this case. Patient has contact information for the transplant clinic and was encouraged to call if there are any further questions. Sophie DON, RN Liver Steam Press Operator Etiology: ETOH HCC: No ETOH: Yes Last Use: April 2018 Refractory Ascites: No Hydrothorax: No Previous Abdominal Surgery: No TIPS: No PVT: Unknown, US scheduled 10/19/2018 RVSP: Not noted on report HCV: No DIAGNOSTIC STUDIES EKG: (NEEDS) CXR: 10/06/2018 FINDINGS: (Adequate technique) Tubes, Lines, and life support hardware: There is a right jugular central venous catheter with its tip within the inferior third of the SVC. Lungs: The lungs are clear. There are no pleural effusions. There is no pneumothorax. Cardiac, mediastinum, and hilum: The cardiomediastinal silhouette is within normal limits. Pulmonary Vessels: Normal, without PVH Bones, chest wall, and soft tissues: The visualized osseous structures are unremarkable. IMPRESSION: 1. No acute disease in the chest. MINAL Ultrasound: (NEEDS) Getting US because ESRD, dialysis dependant ECHO: 10/06/2018 Interpretation Summary Left Ventricle: Chamber size is normal. Concentric hypertrophy. Regional wall motion is normal. Ejection fraction normal (65 - 70%). Right Ventricle: Chamber size is normal. Systolic function is normal. Left Atrium: Chamber size is mildly enlarged. Septum: The atrial septum is normal. There is no evidence of a patent foramen ovale. Pericardium: Appears normal. No pericardial effusion. Findings Left Ventricle Chamber size is normal. Increased wall thickness. Concentric hypertrophy. Regional wall motion is normal. Ejection fraction normal (65 - 70%). Right Ventricle Chamber size is normal. Systolic function is normal. Left Atrium Chamber size is mildly enlarged. Right Atrium Chamber size is normal. Septum The atrial septum is normal. There is no evidence of a patent foramen ovale. Mitral Valve Normal appearing leaflets. Trace regurgitation. No valve stenosis. Aortic Valve Trileaflet valve. Non-specific thickening. No regurgitation. No stenosis. Tricuspid Valve Normal leaflets. No regurgitation. No stenosis. Pulmonic Valve No mass/vegetation is present. Aorta No dilation to extent seen. Pericardium Appears normal. No pericardial effusion. IVC/SVC The inferior vena cava structure has a diameter <21 mm and decreases >50% during inspiration. Wall Scoring Score Index: 1.000 Percent Normal: 100.0% The left ventricular wall motion is normal. Left Heart Measurements LV - Systole LVIDD 4.78 cm IVS 1.28 cm (A) LVIDS 3.03 cm PW 1.28 cm (A) LV RWT 0.54 LV Mass Index 123.1 g/m2 LV EDV BP 157 mL LV ESV BP 48 mL BP EF 69 LV - Diastole MV Peak E Meliton 1.19 m/s MV Peak A Meliton 0.83 m/s E/A ratio 1.43 e' septal pk meliton 0.09 m/s e' lateral pk meliton 0.08 m/s Average e' pk meliton 0.09 m/s E/e' septal ratio 13.22 E/e' lateral ratio 14.88 Avg E/e' ratio 14.05 LV - HCM AV LVOT peak gradient 7 mmHg Left Atrium LA size 4.8 cm LA ESV SP 4CH (MOD) 65 mL LA ESV SP 2CH (MOD) 81 mL LA ESV BP (MOD) index 38 mL/m2 Right Heart Measurements RV - 2D RV basal diam 3.92 cm RV mid diam 2.77 cm RV long diam 7.49 cm RV - Doppler TAPSE 2.5 RV S' 17.4 cm/s Right Atrium RA vol index 4CH (MOD) 26.8 mL/m2 RA area 4CH (MOD) 19.1 cm2 Pulm Vein - Doppler PV Peak D Meliton 0.91 m/s Pulmonary vein systolic peak velocity 0.81 m/s Pulmonary vein S2/D ratio 0.89 Great Vessels Aortic Root - End Diastolic Sinus 3.6 cm STJ 2.79 cm Ascending aorta 2.8 cm Doppler Measurements - Aortic Valve Stenosis LVOT diameter 2.4 cm LVOT area 4.52 cm2 LVOT peak meliton 1.34 m/s LVOT peak VTI 28.9 cm Stroke Volume 131 cm/mL Stroke volume index 67 Ao peak meliton 1.81 m/s Ao VTI 39.9 cm AV peak gradient 13 mmHG AV mean gradient 7 mmHg DI (VTI) 0.72 m/2 DI (Vmax) 0.74 VEGA (continuity Vmax) 3.35 cm2 VEGA index (continuity Vmax) 1.73 m/s VEGA (continuity VTI) 3.28 cm2 VEGA index (continuity VTI) 1.69 cm2/m2 LVOT stroke volume 131 cm3 LVOT stroke volume index 67.36 ml/m2 Doppler Measurements - Mitral Valve Stenosis MV Peak E Meliton 1.19 m/s MV Peak A Meliton 0.83 m/s E/A ratio 1.43 MV VTI 37 cm MV stenosis pressure 1/2 time 60 ms MV peak gradient 8 mmHg MV mean gradient 3 mmHg MV valve area p 1/2 method 3.67 cm2 MV valve area by continuity eq 3.53 cm2 PISA-MS MV Peak E Meliton 1.19 m/s Doppler Measurements - Pulmonic Valve Stenosis PV PK MELITON 1.48 m/s PV VTI 32.8 cm2 PV peak gradient 9 mmHg PV mean gradient 5 mmHg RVOT peak meliton 1.14 m/s RVOT peak VTI 25.2 cm RVOT peak gradient 5 mmHg Cardiology Evaluation: (SCHEDULED 11/19/2018) PFT/ABG/6 MIN WALK: PFT 6 Minute Walk (NEEDS TO BE RESCHEDULED. TEST NOT COMPLETED DUE TO HTN) Six minute walk: O2 LPM- FiO2% Rest Max SpO2 Heart Rate Blood Pressure Dyspnea CAROLYNN scale Leg Fatigue CAROLYNN scale Distance meters / feet Saturation Monitoring Location: Pt required rest periods times Ambulatory Assistance Required Type: ABG Results in Past 365 Days Result Component Current Result BASE EXCESS -6.0 (L) (10/06/2018) FIO2 21.0 (10/06/2018) HCO3 17.8 (L) (10/06/2018) O2 SATURATION 97.2 (10/06/2018) PCO2 30.7 (L) (10/06/2018) PH 7.381 (10/06/2018) PO2 94.8 (10/06/2018) SAMPLE SOURCE Arterial (10/06/2018) EGD: (NEEDS, ORDERED 09/10/2018) in this encounter Assessments Diagnosis Alcoholic cirrhosis of liver without ascites - Primary Alcoholic cirrhosis of liver Pre-transplant evaluation fo r liver transplant Hepatic encephalopathy Diagnosis Cirrhosis of liver without a scites, unspecified hepatic cirrhosis type - Primary Diagnosis Cirrhosis of liver with asci kizzy, unspecified hepatic cirrhosis type Diagnosis Alcoholic cirrhosis, unspeci fied whether ascites present - Primary Pre-transplant evaluation fo r liver transplant Diagnosis Alcoholic cirrhosis, unspeci fied whether ascites present ESRD (end stage renal diseas e) on dialysis End stage renal disease Pre-transplant evaluation fo r liver transplant Reason for Referral Status Reason Specialty Diagnoses / Procedures Referred By Contact Referred To Contact New Request Diagnoses Cirrhosis of liver without ascites, unspecified hepatic cirrhosis type Procedures US ABDOMEN RUQ/LIVER/GB Yovani Orr MD [address] [address] Status Reason Specialty Diagnoses / Procedures Referred By Contact Referred To Contact New Request Diagnoses Cirrhosis of liver with ascites, unspecified hepatic cirrhosis type Procedures US ABDOMEN RUQ/LIVER/GB Yovani Orr MD [address] [address] Specialty Diagnoses / Procedures Referred By Contac t Referred To Contact Diagnoses FAYE (acute kidney injury) Procedures CT ABDOMEN/PELVIS WITHOUT CONTRAST CHG CT SCAN,ABDOMENT AND PELVIS,W/O CONTRAST Central Scheduling [address] [place] [phone] Referral ID Status Reason Start Date Expiration Date V isits Requested Visits Authorized [id number] Pending Review 05/16/2022 06/10/2023 1 1 Specialty Diagnoses / Procedures Referred By Contac t Referred To Contact Diagnoses Other hydronephrosis Procedures [facility] Ryan Yepez MD [address] [facility] [address] [place] [address] Referral ID Status Reason Start Date Expiration Date V isits Requested Visits Authorized [id number] New Request 07/07/2022 08/01/2023 1 1 Specialty Diagnoses / Procedures Referred By Contac t Referred To Contact Procedures DIRECT ADMIT REQUEST Steve Latham MBBS [address] [place] [address] Referral ID Status Reason Start Date Expiration Date V isits Requested Visits Authorized [id number] New Request 08/28/2023 09/21/2024 1 1 Advance Directives No Advanced Directives Records FoundDocuments on File Type Date Recorded Patient Pharmacy Resource Tech Expl anation Advance Directives and Living Will Power of It Network Engineer Latest Code Status on File Code Status Date Activated Date Inactivated Comments Full Code 05/10/2020 4:17 AM Full Code 04/13/2020 5:11 AM 05/10/2020 4:17 AM Full Code 04/12/2020 2:51 PM 04/13/2020 5:11 AM Full Code 04/09/2020 12:36 AM 04/12/2020 2:51 PM Latest Code Status on File Code Status Date Activated Date Inactivated Comments Full Code 05/15/2022 10:11 PM Full Code 05/10/2020 4:17 AM 05/15/2022 10:11 PM Full Code 04/13/2020 5:11 AM 05/10/2020 4:17 AM Full Code 04/12/2020 2:51 PM 04/13/2020 5:11 AM Full Code 04/09/2020 12:36 AM 04/12/2020 2:51 PM Latest Code Status on File Code Status Date Activated Date Inactivated Comments Full Code 05/15/2022 10:11 PM Full Code 05/10/2020 4:17 AM 05/15/2022 10:11 PM Latest Code Status on File Code Status Date Activated Date Inactivated Comments Full Code 05/15/2022 10:11 PM Code Status History Code Status Date Activated Date Inactivated Comments Full Code 05/10/2020 4:17 AM 05/15/2022 10:11 PM Full Code 04/13/2020 5:11 AM 05/10/2020 4:17 AM Full Code 04/12/2020 2:51 PM 04/13/2020 5:11 AM Full Code 04/09/2020 12:36 AM 04/12/2020 2:51 PM Latest Code Status on File Code Status Date Activated Date Inactivated Comments Full Code 08/28/2023 8:47 PM Code Status History Code Status Date Activated Date Inactivated Comments Full Code 05/15/2022 10:11 PM 08/28/2023 8:47 PM Full Code 05/10/2020 4:17 AM 05/15/2022 10:11 PM Full Code 04/13/2020 5:11 AM 05/10/2020 4:17 AM Full Code 04/12/2020 2:51 PM 04/13/2020 5:11 AM Latest Code Status on File Code Status Date Activated Date Inactivated Comments Full Code 08/28/2023 8:47 PM Code Status History Code Status Date Activated Date Inactivated Comments Full Code 05/15/2022 10:11 PM 08/28/2023 8:47 PM Full Code 05/10/2020 4:17 AM 05/15/2022 10:11 PM Full Code 04/13/2020 5:11 AM 05/10/2020 4:17 AM Full Code 04/12/2020 2:51 PM 04/13/2020 5:11 AM Summary Purpose Family History No Family History Records FoundNo Family History Records FoundNo Family History Records FoundNo Family History Records FoundNo Family History Records FoundNo Family History Records Found Additional Source Comments Reason for Visit (unrecogniz ed section and content) Reason Comments Follow-up Cirrhosis Status Reason Specialty Diagnoses / Procedures Referred By Contact Referred To Contact New Request Diagnoses Cirrhosis of liver with ascites, unspecified hepatic cirrhosis type Procedures US ABDOMEN RUQ/LIVER/GB Yovani Orr MD [address] [address] Status Reason Specialty Diagnoses / Procedures Referre d By Contact Referred To Contact Denied Diagnoses Alcoholic cirrhosis, unspecified whether ascites present Pre-transplant evaluation for liver transplant Procedures MRI ABDOMEN WITH CONTRAST [place] MRI, ABDOMEN W/CONTRAST Yovani Orr MD [address] [phone] Reason Comments Liver Recipient Evaluation Status Reason Specialty Diagnoses / Procedures Referred By Contact Referred To Contact New Request Transplant / Transplant Surgery Procedures PRE NEW PATIENT Yovani Orr MD [address] [phone] Alfredito Restrepo MD [address] [place] [address] Reason Comments Reschedule Reason Comments Outside Medical Records Request Reason Comments Social Work Follow-up Reason Comments Kidney Stone Specialty Diagnoses / Procedures Referred By Contac t Referred To Contact Diagnoses Obstructing kidney stone, s/p kidney transplant 2019 Daya Saldana MD [address] [place] [address] [facility] [address] [place] [address] Referral ID Status Reason Start Date Expiration Date Visits Re quested Visits Authorized [id number] 1 1 Reason Comments Follow-up Reason Comments Kidney Recipient Follow-up Liver Recipient Follow-up Reason Comments Consult Reason Comments New Patient Hospital follow up Specialty Diagnoses / Procedures Referred By Contac t Referred To Contact Urology Diagnoses hosp fu with [address] prior Procedures NEW TO DOC/RET PATIENT Zuly Bruno CNP [address] [place] [address] Ryan Yepez MD [address] [facility] [address] [place] [address] Referral ID Status Reason Start Date Expiration Date Visits Re quested Visits Authorized [id number] Closed 06/27/2022 07/22/2023 1 1 Specialty Diagnoses / Procedures Referred By Contac t Referred To Contact Diagnoses FAYE (acute kidney injury) Procedures CT ABDOMEN/PELVIS WITHOUT CONTRAST CHG CT SCAN,ABDOMENT AND PELVIS,W/O CONTRAST Central Scheduling [address] [place] [phone] Referral ID Status Reason Start Date Expiration Date V isits Requested Visits Authorized [id number] Pending Review 05/16/2022 06/10/2023 1 1 Reason Comments Follow-up Specialty Diagnoses / Procedures Referred By Contac t Referred To Contact Urology Diagnoses 1 week fu post NT clamp Procedures RETURN PATIENT Zuly Bruno CNP [address] [place] [address] Ryan Yepez MD [address] [facility] [address] [place] [address] Referral ID Status Reason Start Date Expiration Date Visits Requested Visits Authorized [id number] Authorized - 07/07/2022 08/01/2023 2 2 Specialty Diagnoses / Procedures Referred By Deni edwards Referred To Contact Diagnoses Other hydronephrosis Procedures [facility] Ryan Yepez MD [address] [facility] [address] [place] [address] Referral ID Status Reason Start Date Expiration Date V isits Requested Visits Authorized [id number] New Request 07/07/2022 08/01/2023 1 1 Specialty Diagnoses / Procedures Referred By Deni edwards Referred To Contact Urology Diagnoses 1 week fu post NT clamp Procedures RETURN PATIENT Zuly Bruno, LIFE INSURANCE SPECIALIST [address] [place] [address] Ryan Yepez MD [address] [facility] [address] [place] [address] Referral ID Status Reason Start Date Expiration Date Visits Re quested Visits Authorized [id number] Closed 07/07/2022 08/01/2023 2 2 Reason Comments Liver Recipient Follow-up Reason Comments Kidney Recipient Follow-up Reason Comments Kidney Recipient Follow-up Specialty Diagnoses / Procedures Referred By Deni edwards Referred To Contact Diagnoses Kidney replaced by transplant Steve Latham MBBS [address] [place] [address] [facility] [address] [place] [address] Referral ID Status Reason Start Date Expiration Date Visits Re quested Visits Authorized [id number] 1 1 (unrecognized sect ion and content) No Status Records FoundNo Status Records FoundNo Status Records FoundNo Status Records FoundNo Status Records FoundNo Status Records Found INFORMATION SOURCE (unrecogn ized section and content) DATE CREATED AUTHOR 01/07/2020 Karlie ariza DATE CREATED AUTHOR AUTHOR'S ORGANIZ ATION 01/27/2021 [facility] DATE CREATED AUTHOR AUTHOR'S ORGANIZ ATION 04/13/2023 [facility] DATE CREATED AUTHOR AUTHOR'S ORGANIZ ATION 05/11/2023 [facility] DATE CREATED AUTHOR AUTHOR'S ORGANIZ ATION 10/26/[address] [facility] DATE CREATED AUTHOR AUTHOR'S ORGANIZ ATION 11/05/2023 [facility] EPIC Care Teams (unrecognized sec tion and content) Trainer Relationship Specialty Start Date End Date Zuly Bruno CNP PCP - General 07/19/18 Comfort Rivera, [facility] [address] [facility] [address] [place] [address] Pharmacist Pharmacist 05/16/20 Angel Carpio [facility],PharmD Pharmacist Pharmacist 05/16/20 Te Leigh [facility],PharmD Pharmacist Pharmacist 01/09/21 Trainer Relationship Specialty Start Date End Date Zuly Bruno CNP PCP - General 07/19/18 Comfort Rivera, [facility] [address] [facility] [address] [place] [address] Pharmacist Pharmacist 05/16/20 Angel Carpio [facility] [facility],PharmD Pharmacist Pharmacist 05/16/20 [place] [facility],PharmD Pharmacist Pharmacist 01/09/21 Trainer Relationship Specialty Start Date End Date Zuly Bruno CNP PCP - General 07/19/18 Trainer Relationship Specialty Start Date End Date Zluy Bruno CNP PCP - General 07/19/18 Trainer Relationship Specialty Start Date End Date Zuly Bruno CNP PCP - General 07/19/18 Trainer Relationship Specialty Start Date End Date Zuly Bruno CNP PCP - General 07/19/18 Trainer Relationship Specialty Start Date End Date Zuly Bruno CNP PCP - General 07/19/18 Trainer Relationship Specialty Start Date End Date Zuly Bruno CNP PCP - General 07/19/18 Trainer Relationship Specialty Start Date End Date Zuly Bruno CNP PCP - General 07/19/18 Trainer Relationship Specialty Start Date End Date Zuly Bruno CNP PCP - General 07/19/18 Trainer Relationship Specialty Start Date End Date Zuly Bruno CNP PCP - General 07/19/18 Trainer Relationship Specialty Start Date End Date Zuly Bruno CNP PCP - General 07/19/18 Trainer Relationship Specialty Start Date End Date Zuly Bruno CNP PCP - General 07/19/18 Trainer Relationship Specialty Start Date End Date Zuly Bruno CNP PCP - General 07/19/18 Trainer Relationship Specialty Start Date End Date LexielydialatishaZuly tipton CNP PCP - General 07/19/18 Trainer Relationship Specialty Start Date End Date LexielydialatishaZuly tipton ROB PCP - General 07/19/18 Trainer Relationship Specialty Start Date End Date Zuly Bruno CNP PCP - General 07/19/18 Evan White DO [address] [place], [place] [id number] Infectious Disease Infectious Disease 09/09/23 Trainer Relationship Specialty Start Date End Date Zuly BrunoROB PCP - General 07/19/18 Evan White DO [address] [place], [place] [id number] Infectious Disease Infectious Disease 09/09/23 Trainer Relationship Specialty Start Date End Date Lexielydialatishaomer ZulyROB PCP - General 07/19/18 Evan White DO [address] [place], [place] [id number] Infectious Disease Infectious Disease 09/09/23 Scheduled Active and Recently Administ ered Medications (unrecognized section and content) Medication Order 05/18/2022 05/19/2022 05/20/2022 allopurinol (ZYLOPRIM) tablet 100 mg 100 mg, Oral, DAILY, First dose (after last modification) on 05/17/22 at 0900, Until Discontinued 08 (Given - Provider: Mel Hampton RN) 08 (Given - Provider: Josey Braun RN) 930 (Given - Provider: Leon Cook RN) amLODIPine (NORVASC) tablet 5 mg 5 mg, Oral, DAILY, First dose on Thu05/16/22 at 0900, Until Discontinued 08 (Given - Provider: Mel Hampton RN) 08 (Given - Provider: Josey Braun RN) 09 (Given - Provider: Leon Cook RN) aspirin chewable tablet 81 mg 81 mg, Oral, DAILY, First dose on Thu05/16/22 at 0900, Until Discontinued 08 (Given - Provider: Mel Hampton RN) 08 (Given - Provider: Josey Braun RN) 09 (Given - Provider: Leon Cook RN) atorvastatin (LIPITOR) tablet 20 mg 20 mg, Oral, DAILY AT BEDTIME, First dose on Thu05/15/22 at 2215, Until Discontinued 1999 (Given - Provider: Carolyn Isaac RN) 2058 (Given - Provider: Carolyn Isaac RN) 2100 (Canceled Entry - Provider: System Discharge - Comment: Automatically canceled at discontinue of medication order) cefTRIAXone (ROCEPHIN) 2 g in dextrose 50mL premix IVPB 2 g, Intravenous, Administer over 30 Minutes, EVERY 24 HOURS, First dose on Thu05/16/22 at 1800, Until Discontinued 1737 ($$New Bag$$ - Provider: Mel Hampton RN)1807 (Stopped - Provider: Carolyn Isaac RN) 1800 ($$New Bag$$ - Provider: Josey Braun RN)1827 (Paused - Provider: Carolyn Isaac RN)1836 (Restarted - Provider: Carolyn Isaac RN)1836 (Stopped - Provider: Carolyn Isaac RN) 1723 ($$New Bag$$ - Provider: Leon Cook RN)1747 (Rate/Dose Verify - Provider: Leon Cook RN) diatrizoate Meglumine (Cystografin) 30 % UR solution 80 mL (COMPLETED) 80 mL, Other, ONCE, 1 dose, On Thu05/20/22 at 1330, Radiology Procedure 1251 (Given - Radiol ogy - Provider: Lizz Campos MD - Comment: via neph tube) faMOTIdine (PEPCID) tablet 20 mg 20 mg, Oral, DAILY, First dose on Thu05/16/22 at 0900, Until Discontinued 0807 (Given - Provider: Mel Hampton RN) 0806 (Given - Provider: Josey Braun RN) 0932 (Given - Provider: Leon Cook RN) gabapentin (NEURONTIN) capsule 400 mg 400 mg, Oral, DAILY AT BEDTIME, First dose on Marta 05/15/22 at 2215, Until Discontinued 1999 (Given - Provider: Carolyn Isaac RN) 205 (Given - Provider: Carolyn Isaac RN) 2100 (Canceled Entry - Provider: System Discharge - Comment: Automatically canceled at discontinue of medication order) heparin injection 5,000 Units 5,000 Units, Subcutaneous, EVERY 8 HOURS (0800/1600/2200), First dose (after last modification) on Thu05/16/22 at 1600, Until Discontinued 0628 (Unheld by provider - Provider: Nishant Gamez MD)0806 (Given - Provider: Mel Hampton RN)1558 (Given - Provider: Mel Hampton RN)2131 (Given - Provider: Carolyn Isaac RN) 0804 (Given - Provider: Josey Braun, SAMI)1754 (Given - Provider: Josey Braun, SAMI)205 (Given - Provider: Carolyn Isaac RN) 0742 (Given - Provider: Leon Cook RN)1502 (Given - Provider: Leon Cook RN) losartan (COZAAR) tablet 50 mg 50 mg, Oral, 2 TIMES DAILY, First dose on Thu05/16/22 at 0900, Until Discontinued 0900 (Automatically Held - Provider: Fred Prince MD)1700 (Automatically Held - Provider: Fred Prince MD) 0900 (Automatically Held - Provider: Fred Prince MD)1700 (Automatically Held - Provider: Fred Prince MD) 0618 (Unheld by provider - Provider: Nishant Gamez MD)0930 (Given - Provider: Leon Cook RN)1722 (Given - Provider: Leon Cook RN) Magnesium Sulfate 4 g in sterile water 50 ml premix IVPB (COMPLETED) 4 g, Intravenous, Administer over 4 Hours, ONCE, 1 dose, On Thu05/18/22 at 0700 0814 ($$New Bag$$ - Provider: Mel Hampton RN)1030 (Rate/Dose Verify - Provider: Carolyn Isaac RN)1137 (Stopped - Provider: Carolyn Isaac RN) Magnesium Sulfate 4 g in sterile water 50 ml premix IVPB (COMPLETED) 4 g, Intravenous, Administer over 4 Hours, ONCE, 1 dose, On Thu05/19/22 at 0715 0803 ($$New Bag$$ - Provider: Josey Braun RN)1128 (Stopped - Provider: Josey Braun RN) Magnesium Sulfate 4 g in sterile water 50 ml premix IVPB (COMPLETED) 4 g, Intravenous, Administer over 4 Hours, ONCE, 1 dose, On Thu05/20/22 at 0700 0742 ($$New Bag$$ - Provider: Leon Cook RN)1035 (Stopped - Provider: Leon Cook RN)1322 (Stopped - Provider: Leon Cook RN) mycophenolate sodium (MYFORTIC) tablet DR 360 mg 360 mg, Oral, EVERY 12 HOURS NON-STANDARD, First dose on Marta 05/15/22 at 2245, Until Discontinued, Give on an empty stomach. Swallow tablet whole; do not split, crush, or chew. 0807 (Given - Provider: Mel Hampton RN)1999 (Given - Provider: Carolyn Isaac RN) 0805 (Given - Provider: Josey Braun RN)205 (Given - Provider: Carolyn Isaac RN) 0742 (Given - Provider: Leon Cook RN)1999 (Canceled Entry - Provider: System Discharge - Comment: Automatically canceled at discontinue of medication order) polyethylene glycol (MIRALAX) packet 17 g 17 g, Oral, EVERY 12 HOURS, First dose (after last modification) on Thu05/16/22 at 0900, Until Discontinued 0810 (Not Given - Provider: Mel Hampton RN - Reason: Patient with symptoms)195 (Given - Provider: Carolyn Isaac RN) 1136 (Not Given - Provider: Josey Braun RN - Reason: Patient/family refused)2100 (Not Given - Provider: Carolyn Isaac RN - Reason: Patient/family refused - Comment: pt had multiple BM today) 0931 (Given - Provider: Leon Cook RN)2100 (Canceled Entry - Provider: System Discharge - Comment: Automatically canceled at discontinue of medication order) potassium chloride (K-DUR) tablet ER 20 mEq (COMPLETED) 20 mEq, Oral, ONCE, 1 dose, On 05/18/22 at 1715, Swallow tablets whole; do not crush, chew, or suck on tablet. Tablet may also be broken in half and each half swallowed separately. 173 (Given - Provider: Mel Hampton RN) potassium chloride (K-DUR) tablet ER 40 mEq (COMPLETED) 40 mEq, Oral, ONCE, 1 dose, On Thu05/19/22 at 0900, Swallow tablets whole; do not crush, chew, or suck on tablet. Tablet may also be broken in half and each half swallowed separately. 08 (Given - Provider: Josey Braun RN) potassium chloride (K-DUR) tablet ER 40 mEq (COMPLETED) 40 mEq, Oral, ONCE, 1 dose, On Thu05/19/22 at 1745, Swallow tablets whole; do not crush, chew, or suck on tablet. Tablet may also be broken in half and each half swallowed separately. 1754 (Given - Provider: Josey Braun RN) senna (SENOKOT) tablet 8.6 mg 8.6 mg, Oral, DAILY, First dose on Thu05/16/22 at 0900, Until Discontinued 0807 (Given - Provider: Mel Hampton RN) 0806 (Given - Provider: Josey Braun, SAMI) 0932 (Given - Provider: Leon Cook RN) sodium-potassium phosphate (K-PHOS NEUTRAL) tablet 1,000 mg (COMPLETED) 1,000 mg, Oral, ONCE, 1 dose, On 05/18/22 at 1715 1735 (Given - Provider: Mel Hampton RN) sodium-potassium phosphate (K-PHOS NEUTRAL) tablet 1,000 mg (COMPLETED) 1,000 mg, Oral, ONCE, 1 dose, On Thu05/19/22 at 0900 0805 (Given - Provider: Josey Braun RN) tacrolimus (PROGRAF) capsule 1 mg 1 mg, Oral, EVERY 12 HOURS, First dose on Marta 05/15/22 at 2215, Until Discontinued, Do not split, break, crush, or open doses of this medication. Contact pharmacy if altered dose or route needed. Do not split, break, crush, or open doses of this medication. Contact pharmacy if altered dose or route needed. 0900 (Automatically Held - Provider: Evan Bennett MD)0959 (Unheld by provider - Provider: Nishant Gamez MD)1999 (Given - Provider: Carolyn Isaac RN) 08 (Given - Provider: Josey Braun RN)2058 (Given - Provider: Carolyn Isaac RN) 0931 (Given - Provider: Leon Cook, RN)2100 (Canceled Entry - Provider: System Discharge - Comment: Automatically canceled at discontinue of medication order) Tamsulosin HCl (FLOMAX) capsule 0.4 mg 0.4 mg, Oral, DAILY, First dose on Thu05/16/22 at 0900, Until Discontinued, Slow release product. Do not chew or crush 0807 (Given - Provider: Mel Hampton RN) 08 (Given - Provider: Josey Braun RN) 0933 (Given - Provider: Leon Cook RN) Continuous Medication Order 05/18/2022 05/19/2022 05/20/2022 lactated ringers IV solution (CANCELED) Intravenous, at 100 mL/hr, CONTINUOUS, Starting on 05/18/22 at 1230, Until 05/18/22 at 1645 1557 ($$New Bag$$ - Provider: Mel Hampton RN)1558 (Rate/Dose Verify - Provider: Carolyn Isaac RN)1737 (Paused - Provider: Carolyn Isaac RN)1807 (Restarted - Provider: Carolyn Isaac RN)1822 (Paused - Provider: Carolyn Isaac RN)1823 (Restarted - Provider: Carolyn Isaac RN)1925 (Rate/Dose Verify - Provider: Carolyn Isaac RN) 205 (Stopped - Provider: Carolyn Isaac RN) PRN Medication Order 05/18/2022 05/19/2022 05/20/2022 acetaminophen (TYLENOL) tablet 650 mg 650 mg, Oral, EVERY 6 HOURS NEEDED, Starting on Marta 05/15/22 at 2311, Until Thu05/20/22 at 2110, Mild Pain, Moderate Pain, Maximum dose of acetaminophen is 4000 mg from all sources in 24 hours. 1739 (Given - Provider: Mel Hampton RN) 1501 (Given - Provider: Leon Cook RN) benzocaine-menthol (CEPACOL) 15-3.6 MG per lozenge 1 lozenge 1 lozenge, Oral, EVERY 2 HOURS NEEDED, Starting on Marta 05/15/22 at 2209, Until Thu05/20/22 at 2110, Sore Throat, Max 8 lozenges/day Patient may self-administer. guaiFENesin (ROBITUSSIN) oral solution 400 mg 400 mg, Oral, EVERY 6 HOURS NEEDED, Starting on Marta 05/15/22 at 2209, Until Thu05/20/22 at 2110, Cough, Congestion iodixanol (VISIPAQUE) injection 320 mg/mL for [facility] IR NEEDED, Starting on 05/17/22 at 1101, Until Thu05/20/22 at 2110, CT Procedure melatonin tablet 3 mg 3 mg, Oral, DAILY AT BEDTIME NEEDED, Starting on Marta 05/15/22 at 2206, Until Thu05/20/22 at 2110, Insomnia ondansetron (ZOFRAN) tablet 4 mg(Linked Group 1) 4 mg, Oral, EVERY 6 HOURS NEEDED, Starting on Marta 05/15/22 at 2206, Until Thu05/20/22 at 2110, Nausea / Vomiting, 1st line for Nausea/Vomiting ondansetron 4mg/2ml (ZOFRAN) injection 4 mg(Linked Group 1) 4 mg, Intravenous, EVERY 6 HOURS NEEDED, Starting on Marta 05/15/22 at 2206, Until Thu05/20/22 at 2110, Nausea / Vomiting, 1st line for Nausea/Vomiting oxyCODONE (ROXICODONE) tablet 5 mg(Linked Group 2) 5 mg, Oral, EVERY 4 HOURS NEEDED, Starting on Thu05/16/22 at 0614, Until Thu05/20/22 at 0, Severe Pain, Moderate Pain 0338 (See Alternative - Provider: Carolyn Isaac RN)0806 (See Alternative - Provider: Mel Hampton, SAMI) 0825 (Given - Provider: Josey rBaun, RN)2104 (Given - Provider: Carolyn Isaac, RN) oxyCODONE HCl (ROXICODONE) tablet 10 mg(Linked Group 2) 10 mg, Oral, EVERY 4 HOURS NEEDED, Starting on Thu05/16/22 at 0614, Until Thu05/20/22 at 2110, Severe Pain 0338 (Given - Provider: Carolyn Isaac, SAMI)0806 (Given - Provider: Mel Hampton, SAMI) 0825 (See Alternative - Provider: Josey Braun, SAMI)2104 (See Alternative - Provider: Carolyn Isaac, RN) sodium chloride 0.9% IV solution 250 mL Intravenous, at 20 mL/hr, NEEDED, Starting on Marta 05/15/22 at 2206, Until Thu05/20/22 at 2110, Carrier Fluid - See Admin. Inst, 250mL 0.9NS to be used as carrier fluid for intermittent small volume or piggyback medication administration as needed. Infusion rate of the carrier fluid should be set at 20 mL/hr unless the rate as the intermittent medication is less than 20 mL/hr. For intermittent medications with a rate less than 20 mL/hr set the carrier fluid at that rate of the intermittent or piggy back medication. 0740 ($$New Bag$$ - Provider: Leon Cook RN)0742 (Paused - Provider: Leon Cook RN)1230 (Restarted - Provider: Leon Cook RN)1231 (Paused - Provider: Leon Cook RN)1334 (Restarted - Provider: Leon Cook RN)1336 (Rate/Dose Change - Provider: Leon Cook RN)1337 (Rate/Dose Change - Provider: Leon Cook RN)1337 (Stopped - Provider: Leon Cook RN) Linked Groups Order Group 1: ondansetron 4mg/2ml (ZOFRAN) injection 4 mgJump to med 4 mg, Intravenous, EVERY 6 HOURS NEEDED, Starting on Marta 05/15/22 at 2206, Until Thu05/20/22 at 2110, Nausea / Vomiting, 1st line for Nausea/Vomiting Or ondansetron (ZOFRAN) tablet 4 mgJump to med 4 mg, Oral, EVERY 6 HOURS NEEDED, Starting on Marta 05/15/22 at 2206, Until Thu05/20/22 at 2110, Nausea / Vomiting, 1st line for Nausea/Vomiting Group 2: oxyCODONE HCl (ROXICODONE) tablet 10 mgJump to med 10 mg, Oral, EVERY 4 HOURS NEEDED, Starting on Thu05/16/22 at 0614, Until Thu05/20/22 at 2110, Severe Pain Or oxyCODONE (ROXICODONE) tablet 5 mgJump to med 5 mg, Oral, EVERY 4 HOURS NEEDED, Starting on Thu05/16/22 at 0614, Until Thu05/20/22 at 2110, Severe Pain, Moderate Pain Scheduled Medication Order 09/09/2023 09/10/2023 09/11/2023 Allopurinol (ZYLOPRIM) tablet 200 mg 200 mg, Oral, DAILY, First dose on 08/29/23 at 0900, Until Discontinued 075 (Given - Provider: Aixa Holden RN) 08 (Given - Provider: Terra Heart, SAMI) 0957 (Given - Provider: Cheyanne Mcdonough, SAMI) amLODIPine (NORVASC) tablet 5 mg 5 mg, Oral, EVERY 24 HOURS, First dose on Marta 09/03/23 at 2100, Until Discontinued 2035 (Given - Provider: Girish Nunez, SAMI) 2024 (Given - Provider: Carolyn Plasencia RN) aspirin chewable tablet 81 mg 81 mg, Oral, DAILY, First dose on 08/29/23 at 0900, Until Discontinued 075 (Given - Provider: Aixa Holden RN) 0829 (Given - Provider: Terra Heart RN) 0957 (Given - Provider: Cheyanne Mcdonough, SAMI) Atorvastatin (LIPITOR) tablet 20 mg 20 mg, Oral, DAILY AT BEDTIME, First dose on Thu08/28/23 at 2100, Until Discontinued 2099 (Hold - Provider: Girish Nunez RN - Reason: Other) 2099 (Automatically Held) 164 (Unheld by provider - Provider: System Discharge) faMOTIdine (PEPCID) tablet 20 mg (CANCELED) 20 mg, Oral, 2 TIMES DAILY, First dose on Thu08/28/23 at 1800, Until Discontinued 0753 (Given - Provider: Aixa Holden RN) Gabapentin (NEURONTIN) capsule 400 mg 400 mg, Oral, DAILY AT BEDTIME, First dose on Thu08/28/23 at 2100, Until Discontinued 2035 (Given - Provider: Girish Nunez RN) 2024 (Given - Provider: Carolyn Plasencia, SAMI) Heparin injection 5,000 Units 5,000 Units, Subcutaneous, EVERY 8 HOURS (0800/1600/2200), First dose on Thu08/28/23 at 1745, Until Discontinued 0800 (Not Given - Provider: Aixa Holden RN - Reason: Patient/family refused)1451 (Not Given - Provider: Aixa Holden RN - Reason: Patient/family refused)203 (Not Given - Provider: Girish Nunez RN - Reason: Patient/family refused) 0830 (Not Given - Provider: Terra Heart RN - Reason: Patient/family refused)1630 (Not Given - Provider: Terra Heart RN - Reason: Patient/family refused)2117 (Not Given - Provider: Carolyn Plasencia RN - Reason: Patient/family refused) 0906 (Not Given - Provider: Cheyanne Mcdonough RN - Reason: Patient/family refused)1600 (Canceled Entry - Provider: System Discharge - Comment: Automatically canceled at discontinue of medication order) Itraconazole (SPORANOX) oral solution 200 mg 200 mg, Oral, EVERY 12 HOURS NON-STANDARD, First dose (after last modification) on Thu09/06/23 at 1800, Until Discontinued, Administer on an empty stomach. Hold tube feeds for 1 hour before and 2 hours after administration. 0558 (Given - Provider: Girish Nunez RN)1609 (Given - Provider: Aixa Holden RN) 0617 (Given - Provider: Girish Nunez RN)1805 (Given - Provider: Terra Heart RN) 0610 (Given - Provider: Carolyn Plasencia, SAMI) magnesium oxide (MAG-OX) tablet 800 mg 800 mg, Oral, DAILY, First dose (after last modification) on Thu09/08/23 at 0900, Until Discontinued 0753 (Given - Provider: Aixa Holden RN) 0829 (Given - Provider: Terra Heart, SAMI) 0957 (Given - Provider: Cheyanne Mcdonough, SAMI) Magnesium sulfate 4 g in sterile water 50 ml premix IVPB (COMPLETED) 4 g, Intravenous, Administer over 4 Hours, ONCE, 1 dose, On Thu09/09/23 at 0800 0757 ($$New Bag$$ - Provider: Aixa Holden RN) Mycophenolate sodium (MYFORTIC) tablet DR 360 mg 360 mg, Oral, EVERY 12 HOURS NON-STANDARD, First dose (after last modification) on Thu09/03/23 at 2100, Until Discontinued, Give on an empty stomach. Swallow tablet whole; do not crush, split or chew. Contact pharmacy if alternate route or dose is needed. 0753 (Given - Provider: Aixa Holden RN)2035 (Given - Provider: Girish Nunez, SAMI) 0829 (Given - Provider: Terra Heart, SAMI)2024 (Given - Provider: Carolyn Plasencia, SAMI) 0958 (Given - Provider: Cheyanne Mcdonough, SAMI) Potassium chloride (K-DUR) tablet ER 20 mEq (CANCELED) 20 mEq, Oral, DAILY, First dose on Thu09/09/23 at 0900, Until Discontinued, Swallow tablets whole; do not crush, chew, or suck on tablet. Tablet may also be broken in half and each half swallowed separately. 0753 (Given - Provider: Aixa Holden RN) Potassium chloride (K-DUR) tablet ER 20 mEq (COMPLETED) 20 mEq, Oral, ONCE, 1 dose, On Thu09/09/23 at 1115, Swallow tablets whole; do not crush, chew, or suck on tablet. Tablet may also be broken in half and each half swallowed separately. 1143 (Given - Provider: Aixa Holden RN) Potassium chloride (K-DUR) tablet ER 40 mEq 40 mEq, Oral, DAILY, First dose (after last modification) on Thu09/10/23 at 0900, Until Discontinued, Swallow tablets whole; do not crush, chew, or suck on tablet. Tablet may also be broken in half and each half swallowed separately. 0829 (Given - Provider: Terra Heart RN) 0958 (Given - Provider: Cheyanne Mcdonough, SAMI) Sulfamethoxazole-trime thoprim (BACTRIM DS) 800-160 MG per tablet 1 tablet 1 tablet, Oral, THREE TIMES WEEKLY (Once per day on Thu), First dose (after last modification) on Thu09/04/23 at 0900, Until Discontinued 0956 (Given - Provider: Aixa Holden RN) 1000 (Given - Provider: Cheyanne Mcdonough, SAMI) tacrolimus (PROGRAF) susp 0.25 mg (CANCELED) 0.25 mg, Oral, DAILY, First dose on Thu09/09/23 at 0900, Until Discontinued, Caution check route of administration. For sublingual administration, place liquid under tongue and allow absorption. 1142 (Given - Provider: Aixa Holden RN) 0829 (Given - Provider: Terra Heart RN) tacrolimus (PROGRAF) susp 0.25 mg 0.25 mg, Oral, EVERY 48 HOURS, First dose (after last modification) on 09/12/23 at 0900, Until Discontinued, Caution check route of administration. For sublingual administration, place liquid under tongue and allow absorption. Tamsulosin HCl (FLOMAX) capsule 0.4 mg 0.4 mg, Oral, DAILY, First dose on 08/29/23 at 0900, Until Discontinued, Slow release product. Do not chew or crush 0753 (Given - Provider: Aixa Holden RN) 0829 (Given - Provider: Terra Heart RN) 0957 (Given - Provider: Cheyanne Mcdonough, SAMI) PRN Medication Order 09/09/2023 09/10/2023 09/11/2023 Acetaminophen (TYLENOL) tablet 650 mg 650 mg, Oral, EVERY 6 HOURS NEEDED, Starting on Thu09/04/23 at 0925, Until Thu09/11/23 at 1645, Moderate Pain, Mild Pain, Oral temp > 100.4 F, Maximum dose of acetaminophen is 2000 mg from all sources in 24 hours. guaiFENesin (ROBITUSSIN) oral solution 200 mg 200 mg, Oral, EVERY 4 HOURS NEEDED, Starting on 08/29/23 at 0803, Until Thu09/11/23 at 1645, Cough Melatonin tablet 6 mg 6 mg, Oral, DAILY AT BEDTIME NEEDED, Starting on Thu08/28/23 at 1738, Until Thu09/11/23 at 1645, Insomnia 2221 (Given - Provider: Girish Nunez, RN) 2205 (Given - Provider: Carolyn Plasencia, SAMI) Ondansetron (ZOFRAN) tablet 4 mg(Linked Group 1) 4 mg, Oral, EVERY 6 HOURS NEEDED, Starting on Thu08/28/23 at 1738, Until Thu09/11/23 at 1645, Nausea / Vomiting, 1st line for Nausea/Vomiting Ondansetron 4mg/2ml (ZOFRAN) injection 4 mg(Linked Group 1) 4 mg, Intravenous, EVERY 6 HOURS NEEDED, Starting on Thu08/28/23 at 1738, Until Thu09/11/23 at 1645, Nausea / Vomiting, 1st line for Nausea/Vomiting petrolatum (LUBRIFRESH) ophthalmic ointment 1 Application 1 Application, Both Eyes, NEEDED, Starting on Thu09/04/23 at 2006, Until Thu09/11/23 at 1645, Dry Eyes, Apply thin ribbon inside lower eyelid Patient may self-administer. Polyethylene glycol (MIRALAX) packet 17 g 17 g, Oral, DAILY NEEDED, Starting on Thu08/28/23 at 1738, Until Thu09/11/23 at 1645, Constipation 1st Line Sodium chloride (OCEAN) 0.65 % nasal spray 2 spray 2 spray, Right Nostril, NEEDED, Starting on Thu08/31/23 at 2142, Until Thu09/11/23 at 1645, Congestion Sodium chloride 0.9% IV solution 250 mL Intravenous, at 20 mL/hr, NEEDED, Starting on Thu08/28/23 at 1734, Until Thu09/11/23 at 1645, Carrier Fluid - See Admin. Inst, 250mL 0.9NS to be used as carrier fluid for intermittent small volume or piggyback medication administration as needed. Infusion rate of the carrier fluid should be set at 20 mL/hr unless the rate as the intermittent medication is less than 20 mL/hr. For intermittent medications with a rate less than 20 mL/hr set the carrier fluid at that rate of the intermittent or piggy back medication. Sodium chloride 3 % inhalation solution 4 mL 4 mL, Nebulization, NEEDED, Starting on Thu09/04/23 at 0926, Until Thu09/11/23 at 1645, Other, c/f mucus plugging Linked Groups Order Group 1: Ondansetron 4mg/2ml (ZOFRAN) injection 4 mgJump to med 4 mg, Intravenous, EVERY 6 HOURS NEEDED, Starting on Thu08/28/23 at 1738, Until Thu09/11/23 at 1645, Nausea / Vomiting, 1st line for Nausea/Vomiting Or Ondansetron (ZOFRAN) tablet 4 mgJump to med 4 mg, Oral, EVERY 6 HOURS NEEDED, Starting on Thu08/28/23 at 1738, Until Thu09/11/23 at 1645, Nausea / Vomiting, 1st line for Nausea/Vomiting FOR RECORDS PERTAINING TO PATIENTS WHO ARE OR HAVE BEEN ENROLLED IN A CHEMICAL DEPENDENCY/SUBSTANCEABUSE PROGRAM, SOME INFORMATION MAY BE OMITTED. This clinical summary was aggregated from multiple sources. Caution should be exercised in using it in the provision of clinical care. This summary normalizes information from multiple sources, and as a consequence, information in this document may materially change the coding, format and clinical context of patient data. In addition, data may be omitted in some cases. CLINICAL DECISIONS SHOULD BE BASED ON THE PRIMARY CLINICAL RECORDS. [employer] provides no warranty or guarantee of the accuracy or completeness of information in this document.
[2023-11-20 07:16] LABS: Basophils Percent Auto 0.5 % (0.2-2.0); Eosinophils Absolute Auto 0.1 10^3/uL (0.0-0.7); Eosinophils Percent Auto 2.2 % (0.9-7.0); Hematocrit 46.2 % (42.0-54.0); Immature Granulocytes Abs Auto 0.01 10^3/uL (0.00-0.03); Immature Granulocytes Pct Auto 0.2 % (0.0-0.5); Lymphocytes Absolute Auto 1.5 10^3/uL (1.2-3.8); Mean Corpuscular HGB Conc 32.5 g/dL (29.9-35.2); Mean Corpuscular Volume 86.2 fL (80.0-94.0); Mean Platelet Volume 10.2 fL (9.5-13.5); Monocytes Absolute Auto 0.4 10^3/uL (0.3-0.8); Neutrophils Absolute Auto 2.1 10^3/uL (1.4-6.5); Neutrophils Percent Auto 51.1 % (43.0-75.0); Platelet Count 192 10^3/uL (150-450); Red Blood Count 5.36 10^6/uL (4.70-6.10); Red Cell Distribution Width 14.6 % (11.0-15.0); White Blood Count 4.1 10^3/uL (4.0-11.0)
[2023-11-20 07:55] LABS: Creatinine Urine Random 117.27 mg/dL (20.00-300.00); Protein Creatinine Ratio Urine 0.23; Total Protein Urine Random 26.7 mg/dL (<=11.9)
[2023-11-20 08:01] LABS: Alanine Aminotransferase 40 U/L (16-63); Alkaline Phosphatase 91 U/L (46-116); Aspartate Amino Transferase 25 U/L (15-37); BUN Creatinine Ratio 13.8; Bilirubin Direct 0.3 mg/dL (0.0-0.2); Bilirubin Total 2.5 mg/dL (0.2-1.0); Calcium 9.7 mg/dL (8.5-10.1); Carbon Dioxide 24.2 mmol/L (21.0-32.0); Chloride 106 mmol/L (98-107); Chol HDL Ratio 2.3; Cholesterol 95 mg/dL (<=200); Estimated GFR (African America >60 (>=60); Estimated GFR (Non-African Ame >60 (>=60); Gamma Glutamyl Transpeptidase 19 U/L (15-85); Glucose 119 mg/dL (74-106); HDL Cholesterol 41 mg/dL (40-60); LDL Cholesterol Calculated 37.4 mg/dL; Magnesium 1.6 mg/dL (1.8-2.4); Phosphorus 3.3 mg/dL (2.6-4.7); Potassium 4.2 mmol/L (3.5-5.1); Sodium 142 mmol/L (136-145); Triglycerides 83 mg/dL (<=150); VLDL CHOLESTEROL 16.6 mg/dL
[2023-11-24 00:09] LABS: Tacrolimus (FK506), Blood 7.6 ng/mL (2.0-20.0)
== END 2023-11-20 06:40 | disposition home or self-care (01) ==
LOC: LAB 06:41
PROVIDERS: PCP Nurse Practitioner
DX: R79.9 Abnormal finding of blood chemistry, unspecified (principal); Z94.0 Kidney transplant status; Z48.298 Encounter for aftercare following other organ transplant; D84.9 Immunodeficiency, unspecified; B39.9 Histoplasmosis, unspecified; Z94.4 Liver transplant status
CPT/HCPCS: 36415; 80048; 80061; 80189; 80197; 82042; 82247; 82248; 82570; 82977; 83735; 84075; 84100; 84156; 84450; 84460; 85025

== ENCOUNTER 2023-11-27 06:50 | Outpatient (OUT) | payer MEDICARE, MEDICAID, SELFPAY ==
--- OUTSIDE RECORDS SUMMARY | 2023-11-27 06:57 | XMS_ITS | CCD ---
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 Phone Kiana Zuly Unavailable Unavailable [...] Unavailable AICHHOLZ, ZULY Primary Care Unavailable Aichholz [facility], Zuly Primary Care Provider Miguel HComfort Unavailable [phone] Shirin RPh,PharmD, Angel Unavailable Unavailab makayla Leigh RP,PharmD, Te Unavailable Unavamatthew lable Aicholz [facility] Primary Care Provider [phone] MIGUEL CARDONA Attending Unavailable MISC, DR BURCH Admitting Unavailable MISC, DR BURCH Consulting Unavailable AICHHOLZ, [employer]CH[employer] HEL[employer] ZULY Primary Care Unavailable MISC, DR BURCH Attending Unavailable MISC, DR BURCH Admitting Unavailable MISC, DR BURCH Consulting Unavailable AICHHOLZ, [employer]CH[employer] HEL[employer] ZULY Primary Care Unavailable MISC, DR BURCH Attending Unavailable ARCELIA PIZARRO Consulting Unavailable KE BURNHAM Attending Unavailable KE BURNHAM Admitting Unavailable DR MÓNICA JIMENEZ Consulting Unavailable AICHHOLZ, [employer]ORBO[employer] MECHANIC HEL[employer] ZULY Primary Care Unavailable KE BURNHAM Consulting Unavailable MISC, DR DOCTOR Consulting Unavailable MISC, DR DOCTOR Attending Unavailable AICHHOL, [facility] ZULY Primary Care Unavailable MISC, DR DOCTOR Admitting Unavailable MISC, DR DOCTOR Consulting Unavailable MISC, DR DOCTOR Attending Unavailable AICHHOL, [facility] ZULY Primary Care Unavailable MISC, DOCTOR Admitting Unavailable MISC, DR DOCTOR Consulting Unavailable AICHHOL, [facility] ZULY Primary Care Unavailable MISC, DOCTOR Admitting Unavailable MISC, DR DOCTOR Attending Unavailable MELINDA, DR GEORGE Munoz Consulting Unavailable MELINDA, DR GEORGE Munoz Attending Unavailable AICHHOLZ, [facility] ZULY Primary Care Unavailable MELINDA, DR GEORGE Munoz Admitting Unavailable NAUN ., KE Consulting Unavailable MIRANDA, LYNDSAY Consulting Unavailable MELINDA, DR GEORGE Munoz Consulting Unavailable NAUN ., KE Attending Unavailable NAUN ., KE Admitting Unavailable AICHHOLZ, [facility] ZULY Primary Care Unavailable NAUN ., KE Consulting Unavailable GIAN HERRING Consulting Unavailable AICHOL, MOTORBOAT MECHANIC HELPER ZULY Consulting Unavailable AICHOL, MOTORBOAT MECHANIC HELPER ZULY Attending Unavailable AICHOL, MOTORBOAT MECHANIC HELPER ZULY Admitting Unavailable AICHHOL, [facility] ZULY Primary Care Unavailable MISC, DR Consulting Unavailable MISC, DR BURCH Admitting Unavailable MISC, DR DOCTOR Attending Unavailable AICHHOLZ, [facility] ZULY Primary Care Unavailable MISC, DR Consulting Unavailable MISC, DR DOCTOR Attending Unavailable MISC, DOCTOR Admitting Unavailable AICHHOLZ, [facility] ZULY Primary Care Unavailable MISC, DR BURCH Admitting Unavailable MISC, DR Consulting Unavailable MISC, DR DOCTOR Attending Unavailable AICHHOL, [facility] ZULY Primary Care Unavailable MISC, DR DOCTOR Admitting Unavailable MISC, DR DOCTOR Consulting Unavailable AICHOL, [facility] ZULY Primary Care Unavailable MISC, DR DOCTOR Attending Unavailable MISC, DOCTOR Admitting Unavailable MISC, DR DOCTOR Consulting Unavailable AICHHOL, [facility] ZULY Primary Care Unavailable MISC, DR DOCTOR Attending Unavailable AICHOL, MOTORBOAT MECHANIC HELPER ZULY Consulting Unavailable [facility], MOTORBOAT MECHANIC HELPER ZULY Attending Unavailable [facility] Z[facility] Admitting Unavailable [facility] Primary Care Unavailable DR MÓNICA JIMENEZ Consulting Unavailable [facility] Primary Care Provider Cindy WHIPPLETranjuan j Feliz Unavailable [phone] [facility] Primary Care Provider Evan White DO Unavailable AICHHOLZ, ZULY Primary [...] Propensity to adverse reactions (disorder) 8 [facility] (20 sources) Shellfish-Derive d Products Propensity to adverse reactions to drug 9 [facility] (1 source) Shellfish Drug allergy (disorder) The [facility] Medications Current Medications Medication Drug Class(es) [...] 1 capsule by mouth once daily b ltumdny-D-bolbj acid (NEPHROCAPS) 1 MG capsule Take 1 [...] itraconazole Fax results to: Dr. White - [phone] [facility] - [phone] Each 0 09/10/2023 Active Drug or [...] ankle pain. 0 06/12/2020 06/12/2023 Discontinued lactulose 88800 mg powder for oral solution (19 sources) [...] EVERY 12 HOURS NON-STANDARD, First dose on [facility] 05/15/22 at 2245, Until Discontinued Give on [...] needed. Start: 08-20-2022 take 1 capsule by [facility] every twelve hours Tacrolimus (PROGRAF) 0.5 MG [...] needed. Start: 03-14-2022 take 1 capsule by [facility] every twelve hours tacrolimus (PROGRAF) 0.5 MG [...] Start: 05-23-2022 take 1 capsule by mo [facility] once daily Tamsulosin HCl 0.4 MG [...] Discontinued Start: 01-15-2023 take 2 tablets by [facility] once daily Allopurinol 100 MG tablet Indications: Abnormal blood chemistry Take 2 tablets by mouth daily. 180 tablet 3 01/15/2023 Active Start: 05-17-2022 End: 05-20-2022 allopurinol (ZYLOPRIM) table t 100 mg Start: 05-16-2022 End: 05-16-2022 take 200 mg by mouth once daily 200 mg, Oral, DAILY, F irst dose on Thu05/16/22 at 0900, Until Discontinued Start: 12-30-2021 take 2 tablets by [facility] once daily allopurinol 100 MG tablet Indications: Abnormal blood chemistry take 2 tablets by mouth once daily 180 tablet 3 12/30/2021 Active Start: 01-28-2021 take 2 tablets by [facility] once daily allopurinol 100 MG tablet Indications: [...] (ROXICODONE) tablet 10 mg polyethylene glycol 3350 77032 mg powder for oral solution (20 sources) [...] ( K-PHOS NEUTRAL) tablet 1,000 mg sennosides, half-way 8.6 mg oral tablet (1 source) Start: [...] Coronary arteriosclerosis; 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: [Atherosclerotic heart disease of [place] coronary artery without angina pectoris] Onset: 04-13-2023 [...] sources) Taking high risk medication; 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: [Other halfway (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] Episodic Other aftercare (3 sources) Other halfway (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; 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: [OTH FRAME NAILER 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 THERAPY] Onset: 07-06-2022 Episodic Other [...] 05-10-2020 05-10-2020 Episodic Other aftercare (1 source) 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; 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: [FRAME NAILER CURRENT USE OF ASPIRIN] Onset: 06-20-2022 Episodic [...] Anion gap [Moles/Vol] 13 mmol/L Normal 7-17 [facility] Comment on above: Performed By: #### C HM7, MGO ####[facility] (DEFAULT)[address] [facility] [place] [address] Chloride [Moles/Vol] 111 mmol/L High 98-108 [facility] Comment on above: Performed By: #### C HM7, MGO ####[facility] (DEFAULT)[address] [facility] [place] [address] CO2 [Moles/Vol] 20 mmol/L Low 21-31 [facility] Comment on above: Performed By: #### C HM7, MGO ####[facility] (DEFAULT)[address] [facility] [place] [address] Creatinine [Mass/Vol] 1.13 mg/dL Normal 0.70-1.30 [facility] Comment on above: Performed By: #### C HM7, MGO ####[facility] (DEFAULT)[address] [place] [address], [place] [address] GFR/1.73 sq M.predicted among non-blacks MDRD (S/P/Bld) [Vol rate/Area] 78 mL/min/{1.73_m2} Normal >=60 [facility] Comment on above: Result Comment: Repo rted eGFR is based on the CKD-EPI 2020 equation using creatinine, age, and sex. Performed By: #### C HM7, MGO ####[facility] (DEFAULT)[address] [facility] [place] [address] Glucose [Mass/Vol] 109 mg/dL High 70-99 [facility] Comment on above: Performed By: #### C HM7, MGO ####[facility] (DEFAULT)[address] [place] [address] Osmolality [Osmolality] 295 mosm/kg Normal 278-305 [facility] Comment on above: Performed By: #### C HM7, MGO ####[facility] (DEFAULT)[address] [place] [address] Potassium [Moles/Vol] 4.3 mmol/L Normal 3.5-5.0 [facility] Comment on above: Performed By: #### C HM7, MGO ####[facility] (DEFAULT)[address] [facility] [place] [address] Sodium [Moles/Vol] 140 mmol/L Normal 135-145 [facility] Comment on above: Performed By: #### Chinedu HM7, MGO ####[facility] (DEFAULT)[address] [facility] [place] [address] Urea nitrogen [Mass/Vol] 16 mg/dL Normal 7-25 [facility] Comment on above: Performed By: #### Chinedu HM7, MGO ####[facility] (DEFAULT)[address] [facility] [place] [address] Urea nitrogen/Creatinine [Mass ratio] 14 mg/mg Normal [facility] Comment on above: Performed By: #### Chinedu HM7, MGO ####[facility] (DEFAULT)[address] [facility] [place] [address] Anion gap [Moles/Vol] 13 mmol/L 7 - 17 mmol/L [facility] Chloride [Moles/Vol] 111 mmol/L High 98 - 10 8 mmol/L [facility] CO2 [Moles/Vol] 20 mmol/L Low 21 - 31 mmol/L [facility] Creatinine [Mass/Vol] 1.13 mg/dL 0.70 - 1.30 mg/dL [facility] eGFR, CKD-EPI, Male 78 - [facility] Glucose [Mass/Vol] 109 mg/dL High 70 - 99 mg/dL [facility] Interpretation and review of laboratory results Abnormal [facility] Osmolality Calc [Osmolality] 295 [facility] Potassium [Moles/Vol] 4.3 mmol/L 3.5 - 5.0 mmol/L [facility] Sodium [Moles/Vol] 140 mmol/L 135 - 145 mmol/L [facility] Urea nitrogen [Mass/Vol] 16 mg/dL 7 - 25 mg/dL [facility] Urea nitrogen/Creatinine [Mass ratio] 14 mg/mg [facility] GLUCOSE POCon 09-11-2023 Glucose [Mass/Vol] 108 mg/dL High 70 - 99 mg/dL [facility] Interpretation and review of laboratory results Abnormal [facility] POC Sample Type CAPBL [facility] Legionella sp identified Org specific cx Nom (Unsp spec)on 09-11-2023 Bacteria identified Cx Nom (Unsp spec) NO GROWTH DAY 7 OF 7 [facility] MAGNESIUMon 09-11-2023 Magnesium [Mass/Vol] 1.6 mg/dL Normal 1.6-2.6 [facility] Comment on above: Performed By: #### C 7, MGO ####[facility] (DEFAULT)[address] [place] [address] Interpretation and review of laboratory results Normal [facility] Magnesium [Mass/Vol] 1.6 mg/dL 1.6 - 2 .6 mg/dL [facility] No Panel Informationon 09-11 [facility] TACROLIMUS LEVEL, TROUGH (NM E DRUG LEVEL)on 09-11-2023 Interpretation and review of laboratory results Normal [facility] Tacrolimus (Bld) [Mass/Vol] 11.5 ng/mL [facility] Tacrolimus, Trough 11.5 ng/mL Normal Bone Susana ow Transplant: 4.0-12.0, Therapeutic: 5.0-15.0 [facility] Comment on above: Order Comment: Pleas e draw at specified interval PRIOR to dose. Do not hold dose to wait for level. Specimens batched twice per day, (M-F) and once per day weekendsMethod performed is a chemiluminescent microparticle immunoasssay on the [employer] Car Worker Helper i2000.The range is based on experience at [facility] and users should be aware that target concentrations vary widely depending on concomitant therapy, time post-transplant, and desired degree of immunosuppression. Performed By: #### T ACRO ####[facility] (DEFAULT)[address] [place] [address] CBC,PLATELETSon 09-10-2023 Hematocrit (Bld) [Volume fraction] 40.0 % Normal 39.6-48.8 [facility] Comment on above: Performed By: #### H EMOGC ####[facility] (DEFAULT)[address] [facility] [place] [address] Hemoglobin (Bld) [Mass/Vol] 12.7 g/dL Low 13.4-16.8 [facility] Comment on above: Performed By: #### H EMOGC ####[facility] (DEFAULT)[address] [facility] [place] [address] MCV (RBC) [Entitic vol] 86.0 fL Normal 79.0-94.5 [facility] Comment on above: Performed By: #### H EMOGC ####[facility] (DEFAULT)[address] [facility] [place] [address] Mean Cell Hgb 27.3 pg Normal 26.1-33.3 [facility] Comment on above: Performed By: #### H EMOGC ####[facility] (DEFAULT)[address] [facility] [place] [address] Mean Cell Hgb Conc 31.8 g/dL Low 31.9-36.5 [facility] Comment on above: Performed By: #### H EMOGC ####[facility] (DEFAULT)[address] [facility] [place] [address] Platelet mean volume (Bld) [Entitic vol] 9.5 fL Normal 8.7-12.3 [facility] Comment on above: Performed By: #### H EMO ####[facility] (DEFAULT)[address] [facility] [place] [address] Platelets (Bld) [#/Vol] 225 10*3/uL Normal 146-337 [facility] Comment on above: Performed By: #### H EMO ####[facility] (DEFAULT)[address] [facility] [place] [address] RBC (Bld) [#/Vol] 4.65 10*6/uL Normal 4.38-5.83 [facility] Comment on above: Performed By: #### H EMO ####[facility] (DEFAULT)[address] [facility] [place] [address] RBC Distribution 13.9 % Normal 10.9-14.3 [facility] Comment on above: Performed By: #### H EMO ####[facility] (DEFAULT)[address] [place] [address] WBC (Bld) [#/Vol] 6.52 10*3/uL Normal 3.73-10.10 [facility] Comment on above: Performed By: #### H EMO ####[facility] (DEFAULT)[address] [place] [address] Erythrocyte distribution width (RBC) [Ratio] 13.9 % 10.9 - 14.3 % [facility] Hematocrit (Bld) [Volume fraction] 40.0 % 39.6 - 48.8 % [facility] Hemoglobin (Bld) [Mass/Vol] 12.7 g/dL Low 13.4 - 16.8 g/dL [facility] Interpretation and review of laboratory results Abnormal [facility] MCH (RBC) [Entitic mass] 27.3 pg 26.1 - 33.3 pg [facility] MCHC (RBC) [Mass/Vol] 31.8 g/dL Low 31.9 - 36.5 g/dL [facility] MCV (RBC) [Entitic vol] 86.0 fL 79.0 - 94.5 fL [facility] Platelet mean volume (Bld) [Entitic vol] 9.5 fL 8.7 - 12.3 fL [facility] Platelets (Bld) [#/Vol] 225 10*3/uL 146 - 337 K/uL [facility] RBC (Bld) [#/Vol] 4.65 10*6/uL [facility] WBC (Bld) [#/Vol] 6.52 10*3/uL 3.73 - 10. 10 K/uL [facility] CHEM 7 (LYTES,BUN,CREA,GLUC) on 09-10-2023 Anion gap [Moles/Vol] 13 mmol/L Normal 7-17 [facility] Comment on above: Performed By: #### T ACRO #### [facility] (DEFAULT) [address] [address] Chloride [Moles/Vol] 111 mmol/L High 98-108 [facility] Comment on above: Performed By: #### T ACRO #### [facility] (DEFAULT) [address] [address] CO2 [Moles/Vol] 20 mmol/L Low 21-31 [facility] Comment on above: Performed By: #### T ACRO #### [facility] (DEFAULT) [address] [address] Creatinine [Mass/Vol] 1.27 mg/dL Normal 0.70-1.30 [facility] Comment on above: Performed By: #### T ACRO #### [facility] (DEFAULT) [address] [address] GFR/1.73 sq M.predicted among non-blacks MDRD (S/P/Bld) [Vol rate/Area] 68 mL/min/{1.73_m2} Normal >=60 [facility] Comment on above: Result Comment: Repo rted eGFR is based on the CKD-EPI 2020 equation using creatinine, age, and sex. Performed By: #### T ACRO #### [facility] (DEFAULT) [address] [place] [address] Glucose [Mass/Vol] 100 mg/dL High 70-99 [facility] Comment on above: Performed By: #### T ACRO #### [facility] (DEFAULT) [address] [place] [address] Osmolality [Osmolality] 293 mosm/kg Normal 278-305 [facility] Comment on above: Performed By: #### T ACRO #### [facility] (DEFAULT) [address] [place] [address] Potassium [Moles/Vol] 4.4 mmol/L Normal 3.5-5.0 [facility] Comment on above: Performed By: #### T ACRO #### [facility] (DEFAULT) [address] [place] [address] Sodium [Moles/Vol] 140 mmol/L Normal 135-145 [facility] Comment on above: Performed By: #### T ACRO #### [facility] (DEFAULT) [address] [place] [address] Urea nitrogen [Mass/Vol] 12 mg/dL Normal 7-25 [facility] Comment on above: Performed By: #### T ACRO #### [facility] (DEFAULT) [address] [place] [address] Urea nitrogen/Creatinine [Mass ratio] 9 mg/mg Normal [facility] Comment on above: Performed By: #### T ACRO #### [facility] (DEFAULT) [address] [place] [address] Anion gap [Moles/Vol] 13 mmol/L 7 - 17 mmol/L [facility] Chloride [Moles/Vol] 111 mmol/L High 98 - 10 8 mmol/L [facility] CO2 [Moles/Vol] 20 mmol/L Low 21 - 31 mmol/L [facility] Creatinine [Mass/Vol] 1.27 mg/dL 0.70 - 1.30 mg/dL [facility] eGFR, CKD-EPI, Male 69 - PINF [facility] Glucose [Mass/Vol] 100 mg/dL High 70 - 99 mg/dL [facility] Osmolality Calc [Osmolality] 293 [facility] Potassium [Moles/Vol] 4.4 mmol/L 3.5 - 5.0 mmol/L [facility] Sodium [Moles/Vol] 140 mmol/L 135 - 145 mmol/L [facility] Urea nitrogen [Mass/Vol] 12 mg/dL 7 - 25 mg/dL [facility] Urea nitrogen/Creatinine [Mass ratio] 9 mg/mg [facility] HEPATIC FUNCTION PANELon Albumin [Mass/Vol] 3.3 g/dL Low 3.5-5.0 [facility] Comment on above: Performed By: #### T ACRO #### [facility] (DEFAULT) [address] [place] [address] ALP [Catalytic activity/Vol] 143 U/L High 32-126 [facility] Comment on above: Performed By: #### T ACRO #### [facility] (DEFAULT) [address] [place] [address] ALT [Catalytic activity/Vol] 28 U/L Normal 10-52 [facility] Comment on above: Performed By: #### T ACRO #### [facility] (DEFAULT) [address] [place] [address] AST [Catalytic activity/Vol] 29 U/L Normal 10-39 [facility] Comment on above: Performed By: #### T ACRO #### [facility] (DEFAULT) [address] [place] [address] Bilirubin [Mass/Vol] 0.9 mg/dL Normal <1.5 [facility] Comment on above: Performed By: #### T ACRO #### [facility] (DEFAULT) [address] [place] [address] Bilirubin.indirect [Mass/Vol] 0.2 mg/dL Normal <0.3 [facility] Comment on above: Performed By: #### T ACRO #### [facility] (DEFAULT) [address] [place] [address] Protein [Mass/Vol] 6.8 g/dL Normal 6.4-8.3 [facility] Comment on above: Performed By: #### T ACRO #### [facility] (DEFAULT) [address] [place] [address] Albumin [Mass/Vol] 3.3 g/dL Low 3.5 - 5.0 g/dL [facility] ALP [Catalytic activity/Vol] 143 U/L High 32 - 126 U/L [facility] ALT [Catalytic activity/Vol] 28 U/L 10 - 52 U/L [facility] AST [Catalytic activity/Vol] 29 U/L 10 - 39 U/L [facility] Bilirubin [Mass/Vol] 0.9 mg/dL [facility] - 1.5 mg/dL [facility] Bilirubin.direct [Mass/Vol] 0.2 mg/dL NINF - 0.3 mg/dL [facility] Protein [Mass/Vol] 6.8 g/dL 6.4 - 8.3 g/dL [facility] MAGNESIUMon 09-10-2023 Magnesium [Mass/Vol] 1.9 mg/dL Normal 1.6-2.6 [facility] Comment on above: Performed By: #### T ACRO #### [facility] (DEFAULT) [address] [place] [address] Interpretation and review of laboratory results Normal [facility] Magnesium [Mass/Vol] 1.9 mg/dL 1.6 - 2 .6 mg/dL [facility] No Panel Informationon 09-10 Interpretation and review of laboratory results Abnormal [facility] TACROLIMUS LEVEL, TROUGH (NM E DRUG LEVEL)Ordered By: Jimy Castillo on 09-10-2023 Interpretation and review of laboratory results Normal [facility] Tacrolimus (Bld) [Mass/Vol] 11.8 ng/mL [facility] TACROLIMUS LEVEL, TROUGH (NM E DRUG LEVEL)on 09-10-2023 Tacrolimus, Trough 11.8 ng/mL Normal Bone Susana ow Transplant: 4.0-12.0, Therapeutic: 5.0-15.0 [facility] Comment on above: Order Comment: Pleas e draw at specified interval PRIOR to dose. Do not hold dose to wait for level. Specimens batched twice per day, (M-) and once per day weekends Method performed is a chemiluminescent microparticle immunoasssay on the [employer] Car Worker Helper i2000. The range is based on experience at [facility] and users should be aware that target concentrations vary widely depending on concomitant therapy, time post-transplant, and desired degree of immunosuppression. Performed By: #### T ACRO #### [facility] (DEFAULT) [address] [place] [address] CHEM 7 (LYTES,BUN,CREA,GLUC) on 09-09-2023 Anion gap [Moles/Vol] 14 mmol/L Normal 7-17 [facility] Comment on above: Performed By: #### C HM7, IPB, MGO ####[facility] (DEFAULT)[address] [place] [address] Chloride [Moles/Vol] 113 mmol/L High 98-108 [facility] Comment on above: Performed By: #### C HM7, IPB, MGO ####[facility] (DEFAULT)[address] [place] [address] CO2 [Moles/Vol] 18 mmol/L Low 21-31 [facility] Comment on above: Performed By: #### C HM7, IPB, MGO ####[facility] (DEFAULT)[address] [place] [address] Creatinine [Mass/Vol] 1.03 mg/dL Normal 0.70-1.30 [facility] Comment on above: Performed By: #### JO ANN GONG, MGO ####[facility] (DEFAULT)[address] [place] [address] GFR/1.73 sq M.predicted among non-blacks MDRD (S/P/Bld) [Vol rate/Area] 87 mL/min/{1.73_m2} Normal >=60 [facility] Comment on above: Result Comment: Repo rted eGFR is based on the CKD-EPI 2020 equation using creatinine, age, and sex. Performed By: #### JO ANN GONG, MGO ####[facility] (DEFAULT)[address] [facility] [place] [address] Glucose [Mass/Vol] 106 mg/dL High 70-99 [facility] Comment on above: Performed By: #### JO ANN GONG, MGO ####[facility] (DEFAULT)[address] [facility] [place] [address] Osmolality [Osmolality] 294 mosm/kg Normal 278-305 [facility] Comment on above: Performed By: #### JO ANN GONG, MGO ####[facility] (DEFAULT)[address] [facility] [place] [address] Potassium [Moles/Vol] 4.0 mmol/L Normal 3.5-5.0 [facility] Comment on above: Performed By: #### JO ANN GONG, MGO ####[facility] (DEFAULT)[address] [facility] [place] [address] Sodium [Moles/Vol] 141 mmol/L Normal 135-145 [facility] Comment on above: Performed By: #### JO ANN GONG, MGO ####[facility] (DEFAULT)[address] [facility] [place] [address] Urea nitrogen [Mass/Vol] 10 mg/dL Normal 7-25 [facility] Comment on above: Performed By: #### JO ANN GONG MGO ####[facility] (DEFAULT)[address] [place] [address] Urea nitrogen/Creatinine [Mass ratio] 10 mg/mg Normal [facility] Comment on above: Performed By: #### JO ANN GONG MGO ####[facility] (DEFAULT)[address] [place] [address] Anion gap [Moles/Vol] 14 mmol/L 7 - 17 mmol/L [facility] Chloride [Moles/Vol] 113 mmol/L High 98 - 10 8 mmol/L [facility] CO2 [Moles/Vol] 18 mmol/L Low 21 - 31 mmol/L [facility] Creatinine [Mass/Vol] 1.03 mg/dL 0.70 - 1.30 mg/dL [facility] eGFR, CKD-EPI, Male 87 - PINF [facility] Glucose [Mass/Vol] 106 mg/dL High 70 - 99 mg/dL [facility] Interpretation and review of laboratory results Abnormal [facility] Osmolality Calc [Osmolality] 294 [facility] Potassium [Moles/Vol] 4.0 mmol/L 3.5 - 5.0 mmol/L [facility] Sodium [Moles/Vol] 141 mmol/L 135 - 145 mmol/L [facility] Urea nitrogen [Mass/Vol] 10 mg/dL 7 - 25 mg/dL [facility] Urea nitrogen/Creatinine [Mass ratio] 10 mg/mg [facility] MAGNESIUMon 09-09-2023 Magnesium [Mass/Vol] 1.6 mg/dL Normal 1.6-2.6 [facility] Comment on above: Performed By: #### JO ANN GONG, MGO ####[facility] (DEFAULT)[address] [place] [address] Magnesium [Mass/Vol] 1.6 mg/dL 1.6 - 2 .6 mg/dL [facility] No Panel Informationon 09-09 Interpretation and review of laboratory results Normal [facility] PHOSPHATE, INORGANICon 09-09 Phosphorous 3.8 mg/dL Normal 2.2-4.6 [facility] Comment on above: Performed By: #### C HM7, IPB, MGO ####[facility] (DEFAULT)[address] [place] [address] Phosphate [Mass/Vol] 3.8 mg/dL 2.2 - 4 .6 mg/dL [facility] TACROLIMUS LEVEL, TROUGH (NM E DRUG LEVEL)on 09-09-2023 Interpretation and review of laboratory results Normal [facility] Tacrolimus (Bld) [Mass/Vol] 9.2 ng/mL [facility] Tacrolimus, Trough 9.2 ng/mL Normal Bone Susana ow Transplant: 4.0-12.0, Therapeutic: 5.0-15.0 [facility] Comment on above: Order Comment: Pleas e draw at specified interval PRIOR to dose. Do not hold dose to wait for level. Specimens batched twice per day, (M-F) and once per day weekendsMethod performed is a chemiluminescent microparticle immunoasssay on the [employer] i2000.The range is based on experience at [facility] and users should be aware that target concentrations vary widely depending on concomitant therapy, time post-transplant, and desired degree of immunosuppression. Performed By: #### H EMO #### [facility] (DEFAULT) [address] [place] [address] CBC,PLATELETSon 09-08-2023 Hematocrit (Bld) [Volume fraction] 36.1 % Low 39.6-48.8 [facility] Comment on above: Performed By: #### T ACRO #### [facility] (DEFAULT) [address] [place] [address] Hemoglobin (Bld) [Mass/Vol] 11.6 g/dL Low 13.4-16.8 [facility] Comment on above: Performed By: #### T ACRO #### [facility] (DEFAULT) [address] [place] [address] MCV (RBC) [Entitic vol] 85.1 fL Normal 79.0-94.5 [facility] Comment on above: Performed By: #### T ACRO #### [facility] (DEFAULT) [address] [address] Mean Cell Hgb 27.4 pg Normal 26.1-33.3 [facility] Comment on above: Performed By: #### T ACRO #### [facility] (DEFAULT) [address] [address] Mean Cell Hgb Conc 32.1 g/dL Normal 31.9-36.5 [facility] Comment on above: Performed By: #### T ACRO #### [facility] (DEFAULT) [address] [address] Platelet mean volume (Bld) [Entitic vol] 9.5 fL Normal 8.7-12.3 [facility] Comment on above: Performed By: #### T ACRO #### [facility] (DEFAULT) [address] [address] Platelets (Bld) [#/Vol] 182 10*3/uL Normal 146-337 [facility] Comment on above: Performed By: #### T ACRO #### [facility] (DEFAULT) [address] [address] RBC (Bld) [#/Vol] 4.24 10*6/uL Low 4.38-5.83 [facility] Comment on above: Performed By: #### T ACRO #### [facility] (DEFAULT) [address] [address] RBC Distribution 13.6 % Normal 10.9-14.3 [facility] Comment on above: Performed By: #### T ACRO #### [facility] (DEFAULT) [address] [place] [address] WBC (Bld) [#/Vol] 4.59 10*3/uL Normal 3.73-10.10 [facility] Comment on above: Performed By: #### T ACRO #### [facility] (DEFAULT) [address] [place] [address] Erythrocyte distribution width (RBC) [Ratio] 13.6 % 10.9 - 14.3 % [facility] Hematocrit (Bld) [Volume fraction] 36.1 % Low 39.6 - 48.8 % [facility] Hemoglobin (Bld) [Mass/Vol] 11.6 g/dL Low 13.4 - 16.8 g/dL [facility] Interpretation and review of laboratory results Abnormal [facility] MCH (RBC) [Entitic mass] 27.4 pg 26.1 - 33.3 pg [facility] MCHC (RBC) [Mass/Vol] 32.1 g/dL 31.9 - 36.5 g/dL [facility] MCV (RBC) [Entitic vol] 85.1 fL 79.0 - 94.5 fL [facility] Platelet mean volume (Bld) [Entitic vol] 9.5 fL 8.7 - 12.3 fL [facility] Platelets (Bld) [#/Vol] 182 10*3/uL 146 - 337 K/uL [facility] RBC (Bld) [#/Vol] 4.24 10*6/uL Low [facility] WBC (Bld) [#/Vol] 4.59 10*3/uL 3.73 - 10. 10 K/uL [facility] CHEM 7 (LYTES,BUN,CREA,GLUC) on 09-08-2023 Anion gap [Moles/Vol] 12 mmol/L Normal 7-17 [facility] Comment on above: Performed By: #### H EMOGC #### [facility] (DEFAULT) [address] [place] [address] Chloride [Moles/Vol] 113 mmol/L High 98-108 [facility] Comment on above: Performed By: #### H EMO #### [facility] (DEFAULT) [address] [address] CO2 [Moles/Vol] 21 mmol/L Normal 21-31 [facility] Comment on above: Performed By: #### H EMO #### [facility] (DEFAULT) [address] [address] Creatinine [Mass/Vol] 1.14 mg/dL Normal 0.70-1.30 [facility] Comment on above: Performed By: #### H [facility] #### [facility] (DEFAULT) [address] [address] GFR/1.73 sq M.predicted among non-blacks MDRD (S/P/Bld) [Vol rate/Area] 77 mL/min/{1.73_m2} Normal >=60 [facility] Comment on above: Result Comment: Repo rted eGFR is based on the CKD-EPI 2020 equation using creatinine, age, and sex. Performed By: #### H EMO #### [facility] (DEFAULT) [address] [address] Glucose [Mass/Vol] 107 mg/dL High 70-99 [facility] Comment on above: Performed By: #### H EMO #### [facility] (DEFAULT) [address] [address] Osmolality [Osmolality] 296 mosm/kg Normal 278-305 [facility] Comment on above: Performed By: #### H EMO #### [facility] (DEFAULT) [address] [address] Potassium [Moles/Vol] 3.9 mmol/L Normal 3.5-5.0 [facility] Comment on above: Performed By: #### H EMOGC #### [facility] (DEFAULT) [address] [address] Sodium [Moles/Vol] 142 mmol/L Normal 135-145 [facility] Comment on above: Performed By: #### H [facility] #### [facility] (DEFAULT) [address] [place] [address] Urea nitrogen [Mass/Vol] 11 mg/dL Normal 7-25 [facility] Comment on above: Performed By: #### H EMO #### [facility] (DEFAULT) [address] [place] [address] Urea nitrogen/Creatinine [Mass ratio] 10 mg/mg Normal [facility] Comment on above: Performed By: #### H [facility] #### [facility] (DEFAULT) [address] [place] [address] Anion gap [Moles/Vol] 12 mmol/L 7 - 17 mmol/L [facility] Chloride [Moles/Vol] 113 mmol/L High 98 - 10 8 mmol/L [facility] CO2 [Moles/Vol] 21 mmol/L 21 - 31 mmol/L [facility] Creatinine [Mass/Vol] 1.14 mg/dL 0.70 - 1.30 mg/dL [facility] eGFR, CKD-EPI, Male 77 - PINF [facility] Glucose [Mass/Vol] 107 mg/dL High 70 - 99 mg/dL [facility] Osmolality Calc [Osmolality] 296 [facility] Potassium [Moles/Vol] 3.9 mmol/L 3.5 - 5.0 mmol/L [facility] Sodium [Moles/Vol] 142 mmol/L 135 - 145 mmol/L [facility] Urea nitrogen [Mass/Vol] 11 mg/dL 7 - 25 mg/dL [facility] Urea nitrogen/Creatinine [Mass ratio] 10 mg/mg [facility] HEPATIC FUNCTION PANELon Albumin [Mass/Vol] 2.9 g/dL Low 3.5-5.0 [facility] Comment on above: Performed By: #### H [facility] #### [facility] (DEFAULT) [address] [place] [address] ALP [Catalytic activity/Vol] 133 U/L High 32-126 [facility] Comment on above: Performed By: #### H EMO #### [facility] (DEFAULT) [address] [place] [address] ALT [Catalytic activity/Vol] 23 U/L Normal 10-52 [facility] Comment on above: Performed By: #### H EMO #### [facility] (DEFAULT) [address] [place] [address] AST [Catalytic activity/Vol] 23 U/L Normal 10-39 [facility] Comment on above: Performed By: #### H EMO #### [facility] (DEFAULT) [address] [place] [address] Bilirubin [Mass/Vol] 0.8 mg/dL Normal <1.5 [facility] Comment on above: Performed By: #### H EMO #### [facility] (DEFAULT) [address] [place] [address] Bilirubin.indirect [Mass/Vol] 0.2 mg/dL Normal <0.3 [facility] Comment on above: Performed By: #### H EMO #### [facility] (DEFAULT) [address] [place] [address] Protein [Mass/Vol] 5.9 g/dL Low 6.4-8.3 [facility] Comment on above: Performed By: #### H EMO #### [facility] (DEFAULT) [address] [place] [address] Albumin [Mass/Vol] 2.9 g/dL Low 3.5 - 5.0 g/dL [facility] ALP [Catalytic activity/Vol] 133 U/L High 32 - 126 U/L [facility] ALT [Catalytic activity/Vol] 23 U/L 10 - 52 U/L [facility] AST [Catalytic activity/Vol] 23 U/L 10 - 39 U/L [facility] Bilirubin [Mass/Vol] 0.8 mg/dL NINF - 1.5 mg/dL [facility] Bilirubin.direct [Mass/Vol] 0.2 mg/dL NINF - 0.3 mg/dL [facility] Protein [Mass/Vol] 5.9 g/dL Low 6.4 - 8.3 g/dL [facility] MAGNESIUMon 09-08-2023 Magnesium [Mass/Vol] 1.8 mg/dL Normal 1.6-2.6 [facility] Comment on above: Performed By: #### H [facility] #### [facility] (DEFAULT) [address] [place] [address] Interpretation and review of laboratory results Normal [facility] Magnesium [Mass/Vol] 1.8 mg/dL 1.6 - 2 .6 mg/dL [facility] No Panel Informationon 09-08 Interpretation and review of laboratory results Abnormal [facility] PHOSPHATE, INORGANICon 09-08 Interpretation and review of laboratory results Normal [facility] Phosphate [Mass/Vol] 4.1 mg/dL 2.2 - 4 .6 mg/dL [facility] Phosphorous 4.1 mg/dL Normal 2.2-4.6 [facility] Comment on above: Performed By: #### H [facility] #### [facility] (DEFAULT) [address] [place] [address] TACROLIMUS LEVEL, TROUGH (NM E DRUG LEVEL)on 09-08-2023 Interpretation and review of laboratory results Normal [facility] Tacrolimus (Bld) [Mass/Vol] 8.5 ng/mL [facility] Tacrolimus, Trough 8.5 ng/mL Normal Bone Susana ow Transplant: 4.0-12.0, Therapeutic: 5.0-15.0 [facility] Comment on above: Order Comment: Pleas e draw at specified interval PRIOR to dose. Do not hold dose to wait for level. Specimens batched twice per day, (M-F) and once per day weekendsMethod performed is a chemiluminescent microparticle immunoasssay on the [employer] i2000.The range is based on experience at [facility] and users should be aware that target concentrations vary widely depending on concomitant therapy, time post-transplant, and desired degree of immunosuppression. Performed By: #### N ONGNNONFNA #### [facility] (DEFAULT) [address] [address] CBC,PLATELETSon 09-07-2023 Hematocrit (Bld) [Volume fraction] 37.1 % Low 39.6-48.8 [facility] Comment on above: Performed By: #### Vale UNDERWOOD #### [facility] (DEFAULT) [address] [address] Hemoglobin (Bld) [Mass/Vol] 11.9 g/dL Low 13.4-16.8 [facility] Comment on above: Performed By: #### Vale UNDERWOOD #### [facility] (DEFAULT) [address] [address] MCV (RBC) [Entitic vol] 86.5 fL Normal 79.0-94.5 [facility] Comment on above: Performed By: #### Vale UNDERWOOD #### [facility] (DEFAULT) [address] [address] Mean Cell Hgb 27.7 pg Normal 26.1-33.3 [facility] Comment on above: Performed By: #### Vale UNDERWOOD #### [facility] (DEFAULT) [address] [address] Mean Cell Hgb Conc 32.1 g/dL Normal 31.9-36.5 [facility] Comment on above: Performed By: #### Vale UNDERWOOD #### [facility] (DEFAULT) [address] [address] Platelet mean volume (Bld) [Entitic vol] 9.6 fL Normal 8.7-12.3 [facility] Comment on above: Performed By: #### G YASMINE #### [facility] (DEFAULT) [address] [place] [address] Platelets (Bld) [#/Vol] 176 10*3/uL Normal 146-337 [facility] Comment on above: Performed By: #### Vale UNDERWOOD #### [facility] (DEFAULT) [address] [place] [address] RBC (Bld) [#/Vol] 4.29 10*6/uL Low 4.38-5.83 [facility] Comment on above: Performed By: #### Vale UNDERWOOD #### [facility] (DEFAULT) [address] [place] [address] RBC Distribution 13.5 % Normal 10.9-14.3 [facility] Comment on above: Performed By: #### Vale UNDERWOOD #### [facility] (DEFAULT) [address] [place] [address] WBC (Bld) [#/Vol] 4.10 10*3/uL Normal 3.73-10.10 [facility] Comment on above: Performed By: #### Vale UNDERWOOD #### [facility] (DEFAULT) [address] [place] [address] Erythrocyte distribution width (RBC) [Ratio] 13.5 % 10.9 - 14.3 % [facility] Hematocrit (Bld) [Volume fraction] 37.1 % Low 39.6 - 48.8 % [facility] Hemoglobin (Bld) [Mass/Vol] 11.9 g/dL Low 13.4 - 16.8 g/dL [facility] Interpretation and review of laboratory results Abnormal [facility] MCH (RBC) [Entitic mass] 27.7 pg 26.1 - 33.3 pg [facility] MCHC (RBC) [Mass/Vol] 32.1 g/dL 31.9 - 36.5 g/dL [facility] MCV (RBC) [Entitic vol] 86.5 fL 79.0 - 94.5 fL [facility] Platelet mean volume (Bld) [Entitic vol] 9.6 fL 8.7 - 12.3 fL [facility] Platelets (Bld) [#/Vol] 176 10*3/uL 146 - 337 K/uL [facility] RBC (Bld) [#/Vol] 4.29 10*6/uL Low [facility] WBC (Bld) [#/Vol] 4.10 10*3/uL 3.73 - 10. 10 K/uL [facility] CHEM 7 (LYTES,BUN,CREA,GLUC) on 09-07-2023 Anion gap [Moles/Vol] 13 mmol/L Normal 7-17 [facility] Comment on above: Performed By: #### Y PNRP #### [facility] (DEFAULT) [address] [place] [address] Chloride [Moles/Vol] 113 mmol/L High 98-108 [facility] Comment on above: Performed By: #### Y PNRP #### [facility] (DEFAULT) [address] [place] [address] CO2 [Moles/Vol] 19 mmol/L Low 21-31 [facility] Comment on above: Performed By: #### Y PNRP #### [facility] (DEFAULT) [address] [place] [address] Creatinine [Mass/Vol] 1.22 mg/dL Normal 0.70-1.30 [facility] Comment on above: Performed By: #### Y PNRP #### [facility] (DEFAULT) [address] [place] [address] GFR/1.73 sq M.predicted among non-blacks MDRD (S/P/Bld) [Vol rate/Area] 71 mL/min/{1.73_m2} Normal >=60 [facility] Comment on above: Result Comment: Repo rted eGFR is based on the CKD-EPI 2020 equation using creatinine, age, and sex. Performed By: #### Y PNRP #### [facility] (DEFAULT) [address] [place] [address] Glucose [Mass/Vol] 107 mg/dL High 70-99 [facility] Comment on above: Performed By: #### Y PNRP #### [facility] (DEFAULT) [address] [place] [address] Osmolality [Osmolality] 295 mosm/kg Normal 278-305 [facility] Comment on above: Performed By: #### Y PNRP #### [facility] (DEFAULT) [address] [place] [address] Potassium [Moles/Vol] 3.9 mmol/L Normal 3.5-5.0 [facility] Comment on above: Performed By: #### Y PNRP #### [facility] (DEFAULT) [address] [place] [address] Sodium [Moles/Vol] 141 mmol/L Normal 135-145 [facility] Comment on above: Performed By: #### Y PNRP #### [facility] (DEFAULT) [address] [place] [address] Urea nitrogen [Mass/Vol] 13 mg/dL Normal 7-25 [facility] Comment on above: Performed By: #### Y PNRP #### [facility] (DEFAULT) [address] [place] [address] Urea nitrogen/Creatinine [Mass ratio] 11 mg/mg Normal [facility] Comment on above: Performed By: #### Y PNRP #### [facility] (DEFAULT) [address] [place] [address] Anion gap [Moles/Vol] 13 mmol/L 7 - 17 mmol/L [facility] Chloride [Moles/Vol] 113 mmol/L High 98 - 10 8 mmol/L [facility] CO2 [Moles/Vol] 19 mmol/L Low 21 - 31 mmol/L [facility] Creatinine [Mass/Vol] 1.22 mg/dL 0.70 - 1.30 mg/dL [facility] eGFR, CKD-EPI, Male 71 - PINF [facility] Glucose [Mass/Vol] 107 mg/dL High 70 - 99 mg/dL [facility] Osmolality Calc [Osmolality] 295 [facility] Potassium [Moles/Vol] 3.9 mmol/L 3.5 - 5.0 mmol/L [facility] Sodium [Moles/Vol] 141 mmol/L 135 - 145 mmol/L [facility] Urea nitrogen [Mass/Vol] 13 mg/dL 7 - 25 mg/dL [facility] Urea nitrogen/Creatinine [Mass ratio] 11 mg/mg [facility] HEPATIC FUNCTION PANELon Albumin [Mass/Vol] 2.9 g/dL Low 3.5-5.0 [facility] Comment on above: Performed By: #### Y PNRP #### [facility] (DEFAULT) [address] [place] [address] ALP [Catalytic activity/Vol] 111 U/L Normal 32-126 [facility] Comment on above: Performed By: #### Y PNRP #### [facility] (DEFAULT) [address] [address] ALT [Catalytic activity/Vol] 18 U/L Normal 10-52 [facility] Comment on above: Performed By: #### Y PNRP #### [facility] (DEFAULT) [address] [place] [address] AST [Catalytic activity/Vol] 23 U/L Normal 10-39 [facility] Comment on above: Performed By: #### Y PNRP #### [facility] (DEFAULT) [address] [place] [address] Bilirubin [Mass/Vol] 0.8 mg/dL Normal <1.5 [facility] Comment on above: Performed By: #### Y PNRP #### [facility] (DEFAULT) [address] [place] [address] Bilirubin.indirect [Mass/Vol] 0.3 mg/dL High <0.3 [facility] Comment on above: Performed By: #### Y PNRP #### [facility] (DEFAULT) [address] [place] [address] Protein [Mass/Vol] 6.0 g/dL Low 6.4-8.3 [facility] Comment on above: Performed By: #### Y PNRP #### [facility] (DEFAULT) [address] [place] [address] Albumin [Mass/Vol] 2.9 g/dL Low 3.5 - 5.0 g/dL [facility] ALP [Catalytic activity/Vol] 111 U/L 32 - 126 U/L [facility] ALT [Catalytic activity/Vol] 18 U/L 10 - 52 U/L [facility] AST [Catalytic activity/Vol] 23 U/L 10 - 39 U/L [facility] Bilirubin [Mass/Vol] 0.8 mg/dL NINF - 1.5 mg/dL [facility] Bilirubin.direct [Mass/Vol] 0.3 mg/dL High NINF - 0.3 mg/dL [facility] Protein [Mass/Vol] 6.0 g/dL Low 6.4 - 8.3 g/dL [facility] MAGNESIUMon 09-07-2023 Magnesium [Mass/Vol] 1.7 mg/dL Normal 1.6-2.6 [facility] Comment on above: Performed By: #### Y PNRP #### [facility] (DEFAULT) [address] [place] [address] Interpretation and review of laboratory results Normal [facility] Magnesium [Mass/Vol] 1.7 mg/dL 1.6 - 2 .6 mg/dL [facility] No Panel Informationon 09-07 Interpretation and review of laboratory results Abnormal [facility] PHOSPHATE, INORGANICon 09-07 Phosphorous 4.4 mg/dL Normal 2.2-4.6 [facility] Comment on above: Performed By: #### Y PNRP #### [facility] (DEFAULT) [address] [address] Interpretation and review of laboratory results Normal [facility] Phosphate [Mass/Vol] 4.4 mg/dL 2.2 - 4 .6 mg/dL [facility] TACROLIMUS LEVEL, TROUGH (NM E DRUG LEVEL)Ordered By: Elizabeth Maldonado on 09-07-2023 Interpretation and review of laboratory results Normal [facility] Tacrolimus (Bld) [Mass/Vol] 7.8 ng/mL [facility] TACROLIMUS LEVEL, TROUGH (NM E DRUG LEVEL)on 09-07-2023 Tacrolimus, Trough 7.8 ng/mL Normal Bone Susana ow Transplant: 4.0-12.0, Therapeutic: 5.0-15.0 [facility] Comment on above: Order Comment: Pleas e draw at specified interval PRIOR to dose. Do not hold dose to wait for level. Specimens batched twice per day, (M-F) and once per day weekends Method performed is a chemiluminescent microparticle immunoasssay on the [employer] i2000. The range is based on experience at [facility] and users should be aware that target concentrations vary widely depending on concomitant therapy, time post-transplant, and desired degree of immunosuppression. Performed By: #### T ACRO #### [facility] (DEFAULT) [address] [place] [address] CBC,PLATELETSon 09-06-2023 Hematocrit (Bld) [Volume fraction] 38.4 % Low 39.6-48.8 [facility] Comment on above: Performed By: #### Y PNRP #### [facility] (DEFAULT) [address] [address] Hemoglobin (Bld) [Mass/Vol] 11.9 g/dL Low 13.4-16.8 [facility] Comment on above: Performed By: #### Y PNRP #### [facility] (DEFAULT) [address] [address] MCV (RBC) [Entitic vol] 85.9 fL Normal 79.0-94.5 [facility] Comment on above: Performed By: #### Y PNRP #### [facility] (DEFAULT) [address] [place] [address] 47170 Mean Cell Hgb 26.6 pg Normal 26.1-33.3 [facility] Comment on above: Performed By: #### Y PNRP #### [facility] (DEFAULT) [address] [place] [address] 15704 Mean Cell Hgb Conc 31.0 g/dL Low 31.9-36.5 [facility] Comment on above: Performed By: #### Y PNRP #### [facility] (DEFAULT) [address] [place] [address] 57419 Platelet mean volume (Bld) [Entitic vol] 9.7 fL Normal 8.7-12.3 [facility] Comment on above: Performed By: #### Y PNRP #### [facility] (DEFAULT) [address] [place] [address] 69903 Platelets (Bld) [#/Vol] 181 10*3/uL Normal 146-337 [facility] Comment on above: Performed By: #### Y PNRP #### [facility] (DEFAULT) [address] [place] [address] 56110 RBC (Bld) [#/Vol] 4.47 10*6/uL Normal 4.38-5.83 [facility] Comment on above: Performed By: #### Y PNRP #### [facility] (DEFAULT) [address] [place] [address] 32049 RBC Distribution 13.4 % Normal 10.9-14.3 [facility] Comment on above: Performed By: #### Y PNRP #### [facility] (DEFAULT) [address] [place] [address] 92897 WBC (Bld) [#/Vol] 4.41 10*3/uL Normal 3.73-10.10 [facility] Comment on above: Performed By: #### Y PNRP #### [facility] (DEFAULT) [address] [place] [address] Erythrocyte distribution width (RBC) [Ratio] 13.4 % 10.9 - 14.3 % [facility] Hematocrit (Bld) [Volume fraction] 38.4 % Low 39.6 - 48.8 % [facility] Hemoglobin (Bld) [Mass/Vol] 11.9 g/dL Low 13.4 - 16.8 g/dL [facility] Interpretation and review of laboratory results Abnormal [facility] MCH (RBC) [Entitic mass] 26.6 pg 26.1 - 33.3 pg [facility] MCHC (RBC) [Mass/Vol] 31.0 g/dL Low 31.9 - 36.5 g/dL [facility] MCV (RBC) [Entitic vol] 85.9 fL 79.0 - 94.5 fL [facility] Platelet mean volume (Bld) [Entitic vol] 9.7 fL 8.7 - 12.3 fL [facility] Platelets (Bld) [#/Vol] 181 10*3/uL 146 - 337 K/uL [facility] RBC (Bld) [#/Vol] 4.47 10*6/uL [facility] WBC (Bld) [#/Vol] 4.41 10*3/uL 3.73 - 10. 10 K/uL [facility] CHEM 7 (LYTES,BUN,CREA,GLUC) on 09-06-2023 Anion gap [Moles/Vol] 14 mmol/L 7 - 17 mmol/L [facility] Chloride [Moles/Vol] 109 mmol/L High 98 - 10 8 mmol/L [facility] CO2 [Moles/Vol] 19 mmol/L Low 21 - 31 mmol/L [facility] Creatinine [Mass/Vol] 1.26 mg/dL 0.70 - 1.30 mg/dL [facility] eGFR, CKD-EPI, Male 69 - PINF [facility] Glucose [Mass/Vol] 114 mg/dL High 70 - 99 mg/dL [facility] Osmolality Calc [Osmolality] 291 [facility] Potassium [Moles/Vol] 4.1 mmol/L 3.5 - 5.0 mmol/L [facility] Sodium [Moles/Vol] 138 mmol/L 135 - 145 mmol/L [facility] Urea nitrogen [Mass/Vol] 16 mg/dL 7 - 25 mg/dL [facility] Urea nitrogen/Creatinine [Mass ratio] 13 mg/mg [facility] Anion gap [Moles/Vol] 14 mmol/L Normal 7-17 [facility] Comment on above: Performed By: #### L EGN #### [facility] (DEFAULT) [address] [place] [address] Chloride [Moles/Vol] 109 mmol/L High 98-108 [facility] Comment on above: Performed By: #### L EGN #### [facility] (DEFAULT) [address] [place] [address] CO2 [Moles/Vol] 19 mmol/L Low 21-31 [facility] Comment on above: Performed By: #### L EGN #### [facility] (DEFAULT) [address] [place] [address] 20595 Creatinine [Mass/Vol] 1.26 mg/dL Normal 0.70-1.30 [facility] Comment on above: Performed By: #### L EGN #### [facility] (DEFAULT) [address] [place] [address] 25230 GFR/1.73 sq M.predicted among non-blacks MDRD (S/P/Bld) [Vol rate/Area] 69 mL/min/{1.73_m2} Normal >=60 [facility] Comment on above: Result Comment: Repo rted eGFR is based on the CKD-EPI 2020 equation using creatinine, age, and sex. Performed By: #### L EGN #### [facility] (DEFAULT) [address] [place] [address] 75920 Glucose [Mass/Vol] 114 mg/dL High 70-99 [facility] Comment on above: Performed By: #### L EGN #### [facility] (DEFAULT) [address] [place] [address] Osmolality [Osmolality] 291 mosm/kg Normal 278-305 [facility] Comment on above: Performed By: #### L EGN #### [facility] (DEFAULT) [address] [place] [address] 44412 Potassium [Moles/Vol] 4.1 mmol/L Normal 3.5-5.0 [facility] Comment on above: Performed By: #### L EGN #### [facility] (DEFAULT) [address] [place] [address] 49351 Sodium [Moles/Vol] 138 mmol/L Normal 135-145 [facility] Comment on above: Performed By: #### L EGN #### [facility] (DEFAULT) [address] [place] [address] 85929 Urea nitrogen [Mass/Vol] 16 mg/dL Normal 7-25 [facility] Comment on above: Performed By: #### L EGN #### [facility] (DEFAULT) [address] [place] [address] 27240 Urea nitrogen/Creatinine [Mass ratio] 13 mg/mg Normal [facility] Comment on above: Performed By: #### L EGN #### [facility] (DEFAULT) [address] [place] [address] 13693 HEPATIC FUNCTION PANELon Albumin [Mass/Vol] 3.0 g/dL Low 3.5 - 5.0 g/dL [facility] ALP [Catalytic activity/Vol] 115 U/L 32 - 126 U/L [facility] ALT [Catalytic activity/Vol] 25 U/L 10 - 52 U/L [facility] AST [Catalytic activity/Vol] 31 U/L 10 - 39 U/L [facility] Bilirubin [Mass/Vol] 1.0 mg/dL NINF - 1.5 mg/dL [facility] Bilirubin.direct [Mass/Vol] 0.3 mg/dL High NINF - 0.3 mg/dL [facility] Protein [Mass/Vol] 6.3 g/dL Low 6.4 - 8.3 g/dL [facility] Albumin [Mass/Vol] 3.0 g/dL Low 3.5-5.0 [facility] Comment on above: Performed By: #### L EGN #### [facility] (DEFAULT) [address] [place] [address] 51460 ALP [Catalytic activity/Vol] 115 U/L Normal 32-126 [facility] Comment on above: Performed By: #### L EGN #### [facility] (DEFAULT) [address] [place] [address] 50554 ALT [Catalytic activity/Vol] 25 U/L Normal 10-52 [facility] Comment on above: Performed By: #### L EGN #### [facility] (DEFAULT) [address] [place] [address] 49527 AST [Catalytic activity/Vol] 31 U/L Normal 10-39 [facility] Comment on above: Performed By: #### L EGN #### [facility] (DEFAULT) [address] [place] [address] 61187 Bilirubin [Mass/Vol] 1.0 mg/dL Normal <1.5 [facility] Comment on above: Performed By: #### L EGN #### [facility] (DEFAULT) [address] [place] [address] 88488 Bilirubin.indirect [Mass/Vol] 0.3 mg/dL High <0.3 [facility] Comment on above: Performed By: #### L EGN #### [facility] (DEFAULT) [address] [place] [address] 86429 Protein [Mass/Vol] 6.3 g/dL Low 6.4-8.3 [facility] Comment on above: Performed By: #### L EGN #### [facility] (DEFAULT) [address] [place] [address] MAGNESIUMon 09-06-2023 Interpretation and review of laboratory results Normal [facility] Magnesium [Mass/Vol] 2.0 mg/dL 1.6 - 2 .6 mg/dL [facility] Magnesium [Mass/Vol] 2.0 mg/dL Normal 1.6-2.6 [facility] Comment on above: Performed By: #### L EGN #### [facility] (DEFAULT) [address] [place] [address] 60970 No Panel Informationon 09-06 Interpretation and review of laboratory results Abnormal [facility] TACROLIMUS LEVEL, TROUGH (NM E DRUG LEVEL)on 09-06-2023 Interpretation and review of laboratory results Normal [facility] Tacrolimus (Bld) [Mass/Vol] 6.7 ng/mL [facility] Tacrolimus, Trough 6.7 ng/mL Normal Bone Susana ow Transplant: 4.0-12.0, Therapeutic: 5.0-15.0 [facility] Comment on above: Order Comment: Pleas e draw at specified interval PRIOR to dose. Do not hold dose to wait for level. Specimens batched twice per day, (M-) and once per day weekends Method performed is a chemiluminescent microparticle immunoasssay on the [employer] i2000. The range is based on experience at [facility] and users should be aware that target concentrations vary widely depending on concomitant therapy, time post-transplant, and desired degree of immunosuppression. Performed By: #### T ACRO #### [facility] (DEFAULT) [address] [place] [address] CBC,PLATELETSon 09-05-2023 Hematocrit (Bld) [Volume fraction] 35.6 % Low 39.6-48.8 [facility] Comment on above: Performed By: #### T ACRO #### [facility] (DEFAULT) [address] [place] [address] 61004 Hemoglobin (Bld) [Mass/Vol] 11.4 g/dL Low 13.4-16.8 [facility] Comment on above: Performed By: #### T ACRO #### [facility] (DEFAULT) [address] [place] [address] 64031 MCV (RBC) [Entitic vol] 86.0 fL Normal 79.0-94.5 [facility] Comment on above: Performed By: #### T ACRO #### [facility] (DEFAULT) [address] [address] Mean Cell Hgb 27.5 pg Normal 26.1-33.3 [facility] Comment on above: Performed By: #### T ACRO #### [facility] (DEFAULT) [address] [place] [address] 84868 Mean Cell Hgb Conc 32.0 g/dL Normal 31.9-36.5 [facility] Comment on above: Performed By: #### T ACRO #### [facility] (DEFAULT) [address] [place] [address] 38167 Platelet mean volume (Bld) [Entitic vol] 10.0 fL Normal 8.7-12.3 [facility] Comment on above: Performed By: #### T ACRO #### [facility] (DEFAULT) [address] [address] Platelets (Bld) [#/Vol] 170 10*3/uL Normal 146-337 [facility] Comment on above: Performed By: #### T ACRO #### [facility] (DEFAULT) [address] [address] RBC (Bld) [#/Vol] 4.14 10*6/uL Low 4.38-5.83 [facility] Comment on above: Performed By: #### T ACRO #### [facility] (DEFAULT) [address] [place] [address] [place] [address] RBC Distribution 13.5 % Normal 10.9-14.3 [facility] Comment on above: Performed By: #### T ACRO #### [facility] (DEFAULT) [address] [place] [address] WBC (Bld) [#/Vol] 4.24 10*3/uL Normal 3.73-10.10 [facility] Comment on above: Performed By: #### T ACRO #### [facility] (DEFAULT) [address] [place] [address] 90834 Erythrocyte distribution width (RBC) [Ratio] 13.5 % 10.9 - 14.3 % [facility] Hematocrit (Bld) [Volume fraction] 35.6 % Low 39.6 - 48.8 % [facility] Hemoglobin (Bld) [Mass/Vol] 11.4 g/dL Low 13.4 - 16.8 g/dL [facility] Interpretation and review of laboratory results Abnormal [facility] MCH (RBC) [Entitic mass] 27.5 pg 26.1 - 33.3 pg [facility] MCHC (RBC) [Mass/Vol] 32.0 g/dL 31.9 - 36.5 g/dL [facility] MCV (RBC) [Entitic vol] 86.0 fL 79.0 - 94.5 fL [facility] Platelet mean volume (Bld) [Entitic vol] 10.0 fL 8.7 - 12.3 fL [facility] Platelets (Bld) [#/Vol] 170 10*3/uL 146 - 337 K/uL [facility] RBC (Bld) [#/Vol] 4.14 10*6/uL Low [facility] WBC (Bld) [#/Vol] 4.24 10*3/uL 3.73 - 10. 10 K/uL [facility] CHEM 7 (LYTES,BUN,CREA,GLUC) on 09-05-2023 Anion gap [Moles/Vol] 12 mmol/L Normal 7-17 [facility] Comment on above: Performed By: #### L EGN #### [facility] (DEFAULT) [address] [place] [address] 97200 Chloride [Moles/Vol] 107 mmol/L Normal 98-108 [facility] Comment on above: Performed By: #### L EGN #### [facility] (DEFAULT) [address] [place] [address] 24878 CO2 [Moles/Vol] 20 mmol/L Low 21-31 [facility] Comment on above: Performed By: #### L EGN #### [facility] (DEFAULT) [address] [place] [address] 33366 Creatinine [Mass/Vol] 1.43 mg/dL High 0.70-1.30 [facility] Comment on above: Performed By: #### L EGN #### [facility] (DEFAULT) [address] [place] [address] 06132 GFR/1.73 sq M.predicted among non-blacks MDRD (S/P/Bld) [Vol rate/Area] 59 mL/min/{1.73_m2} Low >=60 [facility] Comment on above: Result Comment: Repo rted eGFR is based on the CKD-EPI 2020 equation using creatinine, age, and sex. Performed By: #### L EGN #### [facility] (DEFAULT) [address] [place] [address] 03142 Glucose [Mass/Vol] 111 mg/dL High 70-99 [facility] Comment on above: Performed By: #### L EGN #### [facility] (DEFAULT) [address] [place] [address] 97578 Osmolality [Osmolality] 286 mosm/kg Normal 278-305 [facility] Comment on above: Performed By: #### L EGN #### [facility] (DEFAULT) [address] [place] [address] 56904 Potassium [Moles/Vol] 4.2 mmol/L Normal 3.5-5.0 [facility] Comment on above: Performed By: #### L EGN #### [facility] (DEFAULT) [address] [place] [address] Sodium [Moles/Vol] 135 mmol/L Normal 135-145 [facility] Comment on above: Performed By: #### L EGN #### [facility] (DEFAULT) [address] [place] [address] Urea nitrogen [Mass/Vol] 18 mg/dL Normal 7-25 [facility] Comment on above: Performed By: #### L EGN #### [facility] (DEFAULT) [address] [place] [address] Urea nitrogen/Creatinine [Mass ratio] 13 mg/mg Normal [facility] Comment on above: Performed By: #### L EGN #### [facility] (DEFAULT) [address] [place] [address] 78432 Anion gap [Moles/Vol] 12 mmol/L 7 - 17 mmol/L [facility] Chloride [Moles/Vol] 107 mmol/L 98 - 10 8 mmol/L [facility] CO2 [Moles/Vol] 20 mmol/L Low 21 - 31 mmol/L [facility] Creatinine [Mass/Vol] 1.43 mg/dL High 0.70 - 1.30 mg/dL [facility] eGFR, CKD-EPI, Male 60 Low - PINF [facility] Glucose [Mass/Vol] 111 mg/dL High 70 - 99 mg/dL [facility] Osmolality Calc [Osmolality] [address] [facility] [address] Potassium [Moles/Vol] 4.2 mmol/L 3.5 - 5.0 mmol/L [facility] Sodium [Moles/Vol] 135 mmol/L 135 - 145 mmol/L [facility] Urea nitrogen [Mass/Vol] 18 mg/dL 7 - 25 mg/[facility] Urea nitrogen/Creatinine [Mass ratio] 13 mg/mg [facility] CONTINUOUS CARDIAC MONITORIN G STRIPon 09-05-2023 [facility] HEPATIC FUNCTION PANELon Albumin [Mass/Vol] 2.8 g/dL Low 3.5-5.0 [facility] Comment on above: Performed By: #### L EGN #### [facility] (DEFAULT) [address] [place] [address] ALP [Catalytic activity/Vol] 103 U/L Normal 32-126 [facility] Comment on above: Performed By: #### L EGN #### [facility] (DEFAULT) [address] [place] [address] ALT [Catalytic activity/Vol] 26 U/L Normal 10-52 [facility] Comment on above: Performed By: #### L EGN #### [facility] (DEFAULT) [address] [place] [address] AST [Catalytic activity/Vol] 38 U/L Normal 10-39 [facility] Comment on above: Performed By: #### L EGN #### [facility] (DEFAULT) [address] [place] [address] 10139 Bilirubin [Mass/Vol] 0.9 mg/dL Normal <1.5 [facility] Comment on above: Performed By: #### L EGN #### [facility] (DEFAULT) [address] [place] [address] Bilirubin.indirect [Mass/Vol] 0.1 mg/dL Normal <0.3 [facility] Comment on above: Performed By: #### L EGN #### [facility] (DEFAULT) [address] [place] [address] Protein [Mass/Vol] 6.1 g/dL Low 6.4-8.3 [facility] Comment on above: Performed By: #### L EGN #### [facility] (DEFAULT) [address] [place] [address] Albumin [Mass/Vol] 2.8 g/dL Low 3.5 - 5.0 g/dL [facility] ALP [Catalytic activity/Vol] 103 U/L 32 - 126 U/L [facility] ALT [Catalytic activity/Vol] 26 U/L 10 - 52 U/L [facility] AST [Catalytic activity/Vol] 38 U/L 10 - 39 U/L [facility] Bilirubin [Mass/Vol] 0.9 mg/dL NINF - 1.5 mg/dL [facility] Bilirubin.direct [Mass/Vol] 0.1 mg/dL NINF - 0.3 mg/dL [facility] Protein [Mass/Vol] 6.1 g/dL Low 6.4 - 8.3 g/dL [facility] HISTOPLASMA ANTIGEN, FLUIDon 09-05-2023 FH SOURCE BAL RML [facility] Histo FLD interpretation Negative [facility] Histoplasma Antigen, FLUID Not detected ng/mL [facility] HISTOPLASMA CAPSULATUM/BLAST OMYCES SPECIES,PCR FLUIDon 09-05-2023 HISTO/BLASTO RESULT Negative Not Applicable [facility] Specimen source Nom (Unsp spec) BAL RML [facility] IMMUNOPHENOTYPING, TISSUE/FL UIDon 09-05-2023 BKR DX CODE Use Ordering [facility] Flow Interpretation See Comment [facility] Flow Interpreted by: Yossi Perla MD, PhD [facility] MAGNESIUMon 09-05-2023 Magnesium [Mass/Vol] 1.7 mg/dL Normal 1.6-2.6 [facility] Comment on above: Performed By: #### L EGN #### [facility] (DEFAULT) [address] [place] [address] Interpretation and review of laboratory results Normal [facility] Magnesium [Mass/Vol] 1.7 mg/dL 1.6 - 2 .6 mg/dL [facility] No Panel Informationon 09-05 Interpretation and review of laboratory results Abnormal [facility] TACROLIMUS LEVEL, TROUGH (NM E DRUG LEVEL)Ordered By: Raymundo Mehta on 09-05-2023 Interpretation and review of laboratory results Normal [facility] Tacrolimus (Bld) [Mass/Vol] 5.3 ng/mL [facility] TACROLIMUS LEVEL, TROUGH (NM E DRUG LEVEL)on 09-05-2023 Tacrolimus, Trough 5.3 ng/mL Normal Bone Susana ow Transplant: 4.0-12.0, Therapeutic: 5.0-15.0 [facility] Comment on above: Order Comment: Pleas e draw at specified interval PRIOR to dose. Do not hold dose to wait for level. Specimens batched twice per day, (M-F) and once per day weekendsMethod performed is a chemiluminescent microparticle immunoasssay on the [employer] i2000.The range is based on experience at [facility] and users should be aware that target concentrations vary widely depending on concomitant therapy, time post-transplant, and desired degree of immunosuppression. Performed By: #### Y PNRP #### [facility] (DEFAULT) [address] [address] ARTERIAL BLOOD GAS (FULL PUENTE EL)on 09-04-2023 Base Excess -1.2 mmol/L Normal -3.0-3.0 [facility] Comment on above: Performed By: #### G YASMINE #### [facility] (DEFAULT) [address] [address] Carboxyhemoglobin 0.7 % Normal <=1.5 [facility] Comment on above: Performed By: #### G YASMINE #### [facility] (DEFAULT) [address] [address] Glucose [Mass/Vol] 159 mg/dL High 70-99 [facility] Comment on above: Performed By: #### G YASMINE #### [facility] (DEFAULT) [address] [place] [address] 65503 HCO3 (Bld) [Moles/Vol] 22 mmol/L Normal 22-28 [facility] Comment on above: Performed By: #### Vale UNDERWOOD #### [facility] (DEFAULT) [address] [place] [address] 55138 Hematocrit (Bld) [Volume fraction] 38.0 % Low 40.2-50.4 [facility] Comment on above: Performed By: #### Vale UNDERWOOD #### [facility] (DEFAULT) [address] [place] [address] 00034 Hemoglobin (Bld) [Mass/Vol] 12.6 g/dL Low 13.4-16.8 [facility] Comment on above: Performed By: #### Vale UNDERWOOD #### [facility] (DEFAULT) [address] [place] [address] 86566 Ionized Calcium, Whole Blood 4.79 mg/dL Normal 4.60-5.30 [facility] Comment on above: Performed By: ###Walter UNDERWOOD #### [facility] (DEFAULT) [address] [place] [address] 97651 Lactate, Whole Blood 2.0 mmol/L High 0.5-1.6 [facility] Comment on above: Performed By: ###Walter UNDERWOOD #### [facility] (DEFAULT) [address] [place] [address] 01891 Methemoglobin 0.0 % Normal <=1.5 [facility] Comment on above: Performed By: #### Vale UNDERWOOD #### [facility] (DEFAULT) [address] [place] [address] 62600 Oxyhemoglobin 91 % Low 94-98 [facility] Comment on above: Performed By: #### Vale UNDERWOOD #### [facility] (DEFAULT) [address] [place] [address] 92160 pCO2 30 mm Hg Low 32-48 [facility] Comment on above: Performed By: #### Vale UNDERWOOD #### [facility] (DEFAULT) [address] [place] [address] 76661 pH (Bld) 7.48 [pH] High 7.35-7.45 [facility] Comment on above: Performed By: #### Vale UNDERWOOD #### [facility] (DEFAULT) [address] [place] [address] 58543 pO2 62 mm Hg Low 83-108 [facility] Comment on above: Performed By: #### Vale UNDERWOOD #### [facility] (DEFAULT) [address] [place] [address] 53294 Potassium [Moles/Vol] 4.2 mmol/L Normal 3.5-5.0 [facility] Comment on above: Performed By: #### Vale UNDERWOOD #### [facility] (DEFAULT) [address] [place] [address] 34046 sO2 92 % Low 94-98 [facility] Comment on above: Performed By: #### Vale UNDERWOOD #### [facility] (DEFAULT) [address] [place] [address] 54206 Sodium [Moles/Vol] 130 mmol/L Low 135-145 [facility] Comment on above: Performed By: #### Vale UNDERWOOD #### [facility] (DEFAULT) [address] [place] [address] 71326 Specimen type Nom (Spec) Arterial Normal [facility] Comment on above: Performed By: ###Walter UNDERWOOD #### [facility] (DEFAULT) [address] [place] [address] 01814 Base excess Calc (Bld) [Moles/Vol] -1.2000 mmol/L -3.0 - 3.0 mmol/L [facility] Calcium.ionized (Bld) [Mass/Vol] 4.79 mg/dL 4.60 - 5.30 mg/dL [facility] Carboxyhemoglobin (Bld) [Mass fraction] 0.7 % NINF - 1.5 % [facility] CO2 (Bld) [Partial pressure] 30 mm[Hg] Low [facility] Glucose [Mass/Vol] 159 mg/dL High 70 - 99 mg/dL [facility] HCO3 (Bld) [Moles/Vol] 22 mmol/L 22 - 28 mmol/L [facility] Hematocrit (Bld) [Volume fraction] 38.0 % Low 40.2 - 50.4 % [facility] Hemoglobin (Bld) [Mass/Vol] 12.6 g/dL Low 13.4 - 16.8 g/dL [facility] Interpretation and review of laboratory results Abnormal [facility] [facility] Lactate [Moles/Vol] 2.0 mmol/L High 0.5 - 1. 6 mmol/L [facility] Methemoglobin (Bld) [Mass fraction] 0.0 % NINF - 1.5 % [facility] Oxygen (Bld) [Partial pressure] 62 mm[Hg] Low [facility] Oxygen saturation in Blood 92 % Low 94 - 98 % [facility] Oxyhemoglobin 91 % Low 94 - 98 % [facility] pH (Bld) 7.48 [pH] High 7.35 - 7.45 [facility] Potassium [Moles/Vol] 4.2 mmol/L 3.5 - 5.0 mmol/L [facility] Sodium [Moles/Vol] 130 mmol/L Low 135 - 145 mmol/L [facility] Specimen source Nom (Unsp spec) Arterial [facility] Bacteria identified Respirat ory culture Nom (Unsp spec)on 09-04-2023 Bacteria identified Cx Nom (Unsp spec) NO GROWTH DAY 2 OF 2 [facility] Microscopic observation Other stain Nom (Unsp spec) Cytocentrifuge preparation [facility] Microscopic observation Other stain Nom (Unsp spec) Neutrophils, Rare [facility] Microscopic observation Other stain Nom (Unsp spec) Red Blood Cells Present [facility] Microscopic observation Other stain Nom (Unsp spec) No organisms seen [facility] Bacteria identified Respirat ory culture Nom (Unsp spec)Ordered By: Jose Salgado on 09-04-2023 Bacteria identified Cx Nom (Unsp spec) NO GROWTH DAY 2 OF 2 [facility] Microscopic observation Other stain Nom (Unsp spec) Cytocentrifuge preparation [facility] Microscopic observation Other stain Nom (Unsp spec) Neutrophils, Moderate [facility] Microscopic observation Other stain Nom (Unsp spec) Red Blood Cells Present [facility] Microscopic observation Other stain Nom (Unsp spec) No organisms seen [facility] CBC,PLATELETSon 09-04-2023 Hematocrit (Bld) [Volume fraction] 38.7 % Low 39.6-48.8 [facility] Comment on above: Performed By: #### N ONGNNONFNA #### [facility] (DEFAULT) [address] [place] [address] Hemoglobin (Bld) [Mass/Vol] 12.3 g/dL Low 13.4-16.8 [facility] Comment on above: Performed By: #### N ONGNNONFNA #### [facility] (DEFAULT) [address] [place] [address] MCV (RBC) [Entitic vol] 87.8 fL Normal 79.0-94.5 [facility] Comment on above: Performed By: #### N ONGNNONFNA #### [facility] (DEFAULT) [address] [place] [address] Mean Cell Hgb 27.9 pg Normal 26.1-33.3 [facility] Comment on above: Performed By: #### N ONGNNONFNA #### [facility] (DEFAULT) [address] [place] [address]262 Mean Cell Hgb Conc 31.8 g/dL Low 31.9-36.5 [facility] Comment on above: Performed By: #### N ONGNNONFNA #### [facility] (DEFAULT) [address] [place] [address] Platelet mean volume (Bld) [Entitic vol] 9.8 fL Normal 8.7-12.3 [facility] Comment on above: Performed By: #### N ONGNNONFNA #### [facility] (DEFAULT) [address] [place] [address] Platelets (Bld) [#/Vol] 173 10*3/uL Normal 146-337 [facility] Comment on above: Performed By: #### N ONGNNONFNA #### [facility] (DEFAULT) [address] [place] [address]53 RBC (Bld) [#/Vol] 4.41 10*6/uL Normal 4.38-5.83 [facility] Comment on above: Performed By: #### N ONGNNONFNA #### [facility] (DEFAULT) [address] [place] [address] RBC Distribution 13.2 % Normal 10.9-14.3 [facility] Comment on above: Performed By: #### N ONGNNONFNA #### [facility] (DEFAULT) [address] [place] [address] WBC (Bld) [#/Vol] 4.57 10*3/uL Normal 3.73-10.10 [facility] Comment on above: Performed By: #### N ONGNNONFNA #### [facility] (DEFAULT) [address] [place] [address] Erythrocyte distribution width (RBC) [Ratio] 13.2 % 10.9 - 14.3 % [facility] Hematocrit (Bld) [Volume fraction] 38.7 % Low 39.6 - 48.8 % [facility] Hemoglobin (Bld) [Mass/Vol] 12.3 g/dL Low 13.4 - 16.8 g/dL [facility] Interpretation and review of laboratory results Abnormal [facility] MCH (RBC) [Entitic mass] 27.9 pg 26.1 - 33.3 pg [facility] MCHC (RBC) [Mass/Vol] 31.8 g/dL Low 31.9 - 36.5 g/dL [facility] MCV (RBC) [Entitic vol] 87.8 fL 79.0 - 94.5 fL [facility] Platelet mean volume (Bld) [Entitic vol] 9.8 fL 8.7 - 12.3 fL [facility] Platelets (Bld) [#/Vol] 173 10*3/uL 146 - 337 K/uL [facility] RBC (Bld) [#/Vol] 4.41 10*6/uL [facility] WBC (Bld) [#/Vol] 4.57 10*3/uL 3.73 - 10. 10 K/uL [facility] CHEM 7 (LYTES,BUN,CREA,GLUC) on 09-04-2023 Anion gap [Moles/Vol] 16 mmol/L Normal 7-17 [facility] Comment on above: Performed By: #### N ONGNAURELIANONA #### [facility] (DEFAULT) [address] [address] Chloride [Moles/Vol] 104 mmol/L Normal 98-108 [facility] Comment on above: Performed By: #### N ONGNGRAEMEFNA #### [facility] (DEFAULT) [address] [address] CO2 [Moles/Vol] 18 mmol/L Low 21-31 [facility] Comment on above: Performed By: #### N ONGNGRAEMEFNA #### [facility] (DEFAULT) [address] [address] Creatinine [Mass/Vol] 1.22 mg/dL Normal 0.70-1.30 [facility] Comment on above: Performed By: #### N ONGNNONFNA #### [facility] (DEFAULT) [address] [address] GFR/1.73 sq M.predicted among non-blacks MDRD (S/P/Bld) [Vol rate/Area] 71 mL/min/{1.73_m2} Normal >=60 [facility] Comment on above: Result Comment: Repo rted eGFR is based on the CKD-EPI 2020 equation using creatinine, age, and sex. Performed By: #### N ONGNGRAEMEFNA #### [facility] (DEFAULT) [address] [place] [address] Glucose [Mass/Vol] 124 mg/dL High 70-99 [facility] Comment on above: Performed By: #### N ONGNNONFNA #### [facility] (DEFAULT) [address] [place] [address] Osmolality [Osmolality] 284 mosm/kg Normal 278-305 [facility] Comment on above: Performed By: #### N ONGNGRAEMEFNA #### [facility] (DEFAULT) [address] [place] [address] Potassium [Moles/Vol] 3.9 mmol/L Normal 3.5-5.0 [facility] Comment on above: Performed By: #### N ONGNGRAEMEFNA #### [facility] (DEFAULT) [address] [place] [address] Sodium [Moles/Vol] 134 mmol/L Low 135-145 [facility] Comment on above: Performed By: #### N ONGNGRAEMEFNA #### [facility] (DEFAULT) [address] [place] [address] Urea nitrogen [Mass/Vol] 15 mg/dL Normal 7-25 [facility] Comment on above: Performed By: #### N ONGNNONFNA #### [facility] (DEFAULT) [address] [place] [address] Urea nitrogen/Creatinine [Mass ratio] 12 mg/mg Normal [facility] Comment on above: Performed By: #### N ONGNNONFNA #### [facility] (DEFAULT) [address] [place] [address] Anion gap [Moles/Vol] 16 mmol/L 7 - 17 mmol/L [facility] Chloride [Moles/Vol] 104 mmol/L 98 - 10 8 mmol/L [facility] CO2 [Moles/Vol] 18 mmol/L Low 21 - 31 mmol/L [facility] Creatinine [Mass/Vol] 1.22 mg/dL 0.70 - 1.30 mg/dL [facility] eGFR, CKD-EPI, Male 72 - PINF [facility] Glucose [Mass/Vol] 124 mg/dL High 70 - 99 mg/dL [facility] Osmolality Calc [Osmolality] [address] [facility] Potassium [Moles/Vol] 3.9 mmol/L 3.5 - 5.0 mmol/L [facility] Sodium [Moles/Vol] 134 mmol/L Low 135 - 145 mmol/L [facility] Urea nitrogen [Mass/Vol] 15 mg/dL 7 - 25 mg/dL [facility] Urea nitrogen/Creatinine [Mass ratio] 12 mg/mg [facility] CMV PCR,FLUIDS,URINE,EYE ETC on 09-04-2023 Specimen source Nom (Unsp spec) BAL LLL [facility] Specimen source Nom (Unsp spec) BAL RML [facility] HEPATIC FUNCTION PANELon Albumin [Mass/Vol] 3.0 g/dL Low 3.5-5.0 [facility] Comment on above: Performed By: #### N ONGNNONFNA #### [facility] (DEFAULT) [address] [place] [address] ALP [Catalytic activity/Vol] 112 U/L Normal 32-126 [facility] Comment on above: Performed By: #### N ONGNNONFNA #### [facility] (DEFAULT) [address] [place] [address] ALT [Catalytic activity/Vol] 22 U/L Normal 10-52 [facility] Comment on above: Performed By: #### N ONGNNONFNA #### [facility] (DEFAULT) [address] [place] [address] AST [Catalytic activity/Vol] 30 U/L Normal 10-39 [facility] Comment on above: Performed By: #### N ONGNNONFNA #### [facility] (DEFAULT) [address] [place] [address] Bilirubin [Mass/Vol] 1.2 mg/dL Normal <1.5 [facility] Comment on above: Performed By: #### N ONGNNONFNA #### [facility] (DEFAULT) [address] [place] [address]672 Bilirubin.indirect [Mass/Vol] 0.4 mg/dL High <0.3 [facility] Comment on above: Performed By: #### N ONGNNONFNA #### [facility] (DEFAULT) [address] [place] [address]84 Protein [Mass/Vol] 6.4 g/dL Normal 6.4-8.3 [facility] Comment on above: Performed By: #### N ONGNNONFNA #### [facility] (DEFAULT) [address] [place] [address] Albumin [Mass/Vol] 3.0 g/dL Low 3.5 - 5.0 g/dL [facility] ALP [Catalytic activity/Vol] 112 U/L 32 - 126 U/L [facility] ALT [Catalytic activity/Vol] 22 U/L 10 - 52 U/L [facility] AST [Catalytic activity/Vol] 30 U/L 10 - 39 U/L [facility] Bilirubin [Mass/Vol] 1.2 mg/dL NINF - 1.5 mg/dL [facility] Bilirubin.direct [Mass/Vol] 0.4 mg/dL High NINF - 0.3 mg/dL [facility] Protein [Mass/Vol] 6.4 g/dL 6.4 - 8.3 g/dL [facility] LEGIONELLA PCRon 09-04-2023 Legionella sp rRNA Probe Ql (Unsp spec) Negative Not Applicable [facility] Specimen source Nom (Unsp spec) BAL RML [facility] Laboratory - Microbiology an d Antimicrobial susceptibilityon 09-04-2023 CMV DNA ESTELITA+probe Ql (Unsp spec) Negative Negative [facility] MAGNESIUMon 09-04-2023 Magnesium [Mass/Vol] 1.4 mg/dL Low 1.6-2.6 [facility] Comment on above: Performed By: #### N ONGNNONFNA #### [facility] (DEFAULT) [address] [place] [address] Magnesium [Mass/Vol] 1.4 mg/dL Low 1.6 - 2 .6 mg/dL [facility] No Panel Informationon 09-04 Annotation comment [Interpretation] Narrative DNR [facility] PN Report Status DNR [facility] Pneumocystis jiroveci,PCR result Negative Not Applicable [facility] Interpretation and review of laboratory results Abnormal [facility] PNEUMOCYSTIS JIROVECI,PCRon 09-04-2023 Specimen source Nom (Unsp spec) BAL LLL [facility] Specimen source Nom (Unsp spec) BAL RML [facility] Portable XR Chest Viewson RADIOLOGY RADIOLOGY [facility] Radiology Study observation (narrative) [facility] Portable XR Chest ViewsOrder ed By: Joanie Nugent on 09-04-2023 [facility] Work Phone: TACROLIMUS LEVEL, TROUGH (NM E DRUG LEVEL)on 09-04-2023 Interpretation and review of laboratory results Abnormal [facility] Tacrolimus (Bld) [Mass/Vol] 3.6 ng/mL Low [facility] Tacrolimus, Trough 3.6 ng/mL Low Bone Susana ow Transplant: 4.0-12.0, Therapeutic: 5.0-15.0 [facility] Comment on above: Order Comment: Pleas e draw at specified interval PRIOR to dose. Do not hold dose to wait for level. Specimens batched twice per day, (M-F) and once per day weekends Method performed is a chemiluminescent microparticle immunoasssay on the [employer] i2000. The range is based on experience at [facility] and users should be aware that target concentrations vary widely depending on concomitant therapy, time post-transplant, and desired degree of immunosuppression. Performed By: #### T ACRO #### [facility] (DEFAULT) [address] [place], [place] [id number] XR CHEST PORTABLEon 09-04-20 XR CHEST PORTABLE [...] the left lung likely infectious/inflammatory process. Normal [facility] ASPERGILLUS ANTIGEN, BALon 1 Galactomannan Ag IA Qn (Unsp spec) <0.500 [facility] Galactomannan Ag IA Qn (Unsp spec) <0.500 [facility] BAL CONSULTOrdered By: Noa Peralta on 09-03-2023 ALVEOLAR MACROPHAGES 32 % [facility] Work Phone: Bal comments Correlation with microbiology stains and cultures is recommended. [facility] Work Phone: Bal Diff Quik Stain Quality Check Acceptable [facility] Work Phone: BKR BAL INTERPRETATION Cellular specimen comprised of alveolar macrophages and small lymphocytes. No definitive microorganisms are observed. Moderate degenerative changes. [facility] Work Phone: BKR DX CODE Use Ordering [facility] Work Phone: Eosinophils Patterson stain Ql (Unsp spec) 0 % [facility] Work Phone: Lymphocytes/100 WBC (Bld) 57 % [facility] Work Phone: Neutrophils/100 WBC Manual cnt (Bronch spec) 11 % [facility] Work Phone: Pathologist review Jame (Unsp spec) [Interp] Leonardo Peralta MD [facility] Work Phone: [facility] Work Phone: BAL CONSULTon 09-03-2023 ALVEOLAR MACROPHAGES 33 % [facility] Bal comments Correlation with microbiology stains and cultures is recommended. Correlation with viral studies is recommended. [facility] Bal Diff Quik Stain Quality Check Acceptable [facility] BKR BAL INTERPRETATION Cellular specimen comprised of alveolar macrophages and small lymphocytes. No definitive microorganisms are observed. Rare degenerating cells with changes suggestive of viral cytopathic effect are noted. Moderate degenerative changes. [facility] BKR DX CODE Use Ordering [facility] Eosinophils Patterson stain Ql (Unsp spec) 0 % [facility] Lymphocytes/100 WBC (Bld) 49 % [facility] Neutrophils/100 WBC Manual cnt (Bronch spec) 18 % [facility] Pathologist review Jame (Unsp spec) [Interp] Leonardo Peralta MD [facility] BRONCHOSCOPYon 09-03-2023 LAB, [facility] CBC,PLATELETSon 09-03-2023 Hematocrit (Bld) [Volume fraction] 39.6 % Normal 39.6-48.8 [facility] Comment on above: Performed By: #### T ACRO #### [facility] (DEFAULT) [address] [address] Hemoglobin (Bld) [Mass/Vol] 12.8 g/dL Low 13.4-16.8 [facility] Comment on above: Performed By: #### T ACRO #### [facility] (DEFAULT) [address] [address] MCV (RBC) [Entitic vol] 85.9 fL Normal 79.0-94.5 [facility] Comment on above: Performed By: #### T ACRO #### [facility] (DEFAULT) [address] [address] Mean Cell Hgb 27.8 pg Normal 26.1-33.3 [facility] Comment on above: Performed By: #### T ACRO #### [facility] (DEFAULT) [address] [address] Mean Cell Hgb Conc 32.3 g/dL Normal 31.9-36.5 [facility] Comment on above: Performed By: #### T ACRO #### [facility] (DEFAULT) [address] [address] Platelet mean volume (Bld) [Entitic vol] 9.4 fL Normal 8.7-12.3 [facility] Comment on above: Performed By: #### T ACRO #### [facility] (DEFAULT) [address] [address] Platelets (Bld) [#/Vol] 222 10*3/uL Normal 146-337 [facility] Comment on above: Performed By: #### T ACRO #### [facility] (DEFAULT) [address] [address] RBC (Bld) [#/Vol] 4.61 10*6/uL Normal 4.38-5.83 [facility] Comment on above: Performed By: #### T ACRO #### [facility] (DEFAULT) [address] [address] RBC Distribution 13.4 % Normal 10.9-14.3 [facility] Comment on above: Performed By: #### T ACRO #### [facility] (DEFAULT) [address] [place] [address] WBC (Bld) [#/Vol] 4.36 10*3/uL Normal 3.73-10.10 [facility] Comment on above: Performed By: #### T ACRO #### [facility] (DEFAULT) [address] [place] [address] Erythrocyte distribution width (RBC) [Ratio] 13.4 % 10.9 - 14.3 % [facility] Hematocrit (Bld) [Volume fraction] 39.6 % 39.6 - 48.8 % [facility] Hemoglobin (Bld) [Mass/Vol] 12.8 g/dL Low 13.4 - 16.8 g/dL [facility] Interpretation and review of laboratory results Abnormal [facility] MCH (RBC) [Entitic mass] 27.8 pg 26.1 - 33.3 pg [facility] MCHC (RBC) [Mass/Vol] 32.3 g/dL 31.9 - 36.5 g/dL [facility] MCV (RBC) [Entitic vol] 85.9 fL 79.0 - 94.5 fL [facility] Platelet mean volume (Bld) [Entitic vol] 9.4 fL 8.7 - 12.3 fL [facility] Platelets (Bld) [#/Vol] 222 10*3/uL 146 - 337 K/uL [facility] RBC (Bld) [#/Vol] 4.61 10*6/uL [facility] WBC (Bld) [#/Vol] 4.36 10*3/uL 3.73 - 10. 10 K/uL [facility] CHEM 7 (LYTES,BUN,CREA,GLUC) on 09-03-2023 Anion gap [Moles/Vol] 12 mmol/L Normal 7-17 [facility] Comment on above: Performed By: #### L EGN #### [facility] (DEFAULT) [address] [place] [address] Chloride [Moles/Vol] 104 mmol/L Normal 98-108 [facility] Comment on above: Performed By: #### L EGN #### [facility] (DEFAULT) [address] [place] [address] CO2 [Moles/Vol] 24 mmol/L Normal 21-31 [facility] Comment on above: Performed By: #### L EGN #### [facility] (DEFAULT) [address] [place] [address] Creatinine [Mass/Vol] 1.20 mg/dL Normal 0.70-1.30 [facility] Comment on above: Performed By: #### L EGN #### [facility] (DEFAULT) [address] [address] GFR/1.73 sq M.predicted among non-blacks MDRD (S/P/Bld) [Vol rate/Area] 73 mL/min/{1.73_m2} Normal >=60 [facility] Comment on above: Result Comment: Repo rted eGFR is based on the CKD-EPI 2020 equation using creatinine, age, and sex. Performed By: #### L EGN #### [facility] (DEFAULT) [address] [address] Glucose [Mass/Vol] 112 mg/dL High 70-99 [facility] Comment on above: Performed By: #### L EGN #### [facility] (DEFAULT) [address] [address] Osmolality [Osmolality] 288 mosm/kg Normal 278-305 [facility] Comment on above: Performed By: #### L EGN #### [facility] (DEFAULT) [address] [address] Potassium [Moles/Vol] 4.1 mmol/L Normal 3.5-5.0 [facility] Comment on above: Performed By: #### L EGN #### [facility] (DEFAULT) [address] [place] [address] Sodium [Moles/Vol] 136 mmol/L Normal 135-145 [facility] Comment on above: Performed By: #### L EGN #### [facility] (DEFAULT) [address] [place] [address] Urea nitrogen [Mass/Vol] 17 mg/dL Normal 7-25 [facility] Comment on above: Performed By: #### L EGN #### [facility] (DEFAULT) [address] [place] [address] Urea nitrogen/Creatinine [Mass ratio] 14 mg/mg Normal [facility] Comment on above: Performed By: #### L EGN #### [facility] (DEFAULT) [address] [place] [address] Anion gap [Moles/Vol] 12 mmol/L 7 - 17 mmol/L [facility] Chloride [Moles/Vol] 104 mmol/L 98 - 10 8 mmol/L [facility] CO2 [Moles/Vol] 24 mmol/L 21 - 31 mmol/L [facility] Creatinine [Mass/Vol] 1.20 mg/dL 0.70 - 1.30 mg/dL [facility] eGFR, CKD-EPI, Male 74 - PINF [facility] Glucose [Mass/Vol] 112 mg/dL High 70 - 99 mg/dL [facility] Osmolality Calc [Osmolality] 288 [facility] Potassium [Moles/Vol] 4.1 mmol/L 3.5 - 5.0 mmol/L [facility] Sodium [Moles/Vol] 136 mmol/L 135 - 145 mmol/L [facility] Urea nitrogen [Mass/Vol] 17 mg/dL 7 - 25 mg/dL [facility] Urea nitrogen/Creatinine [Mass ratio] 14 mg/mg [facility] CYTOLOGY, NON-GYNOrdered By: Sherice Jimenez on 09-03-2023 CYTOLOGIC DIAGNOSIS h2rbgXTjZKZhkEAgZWMqH1f vccAzJBNilSThU0NysvcrJR pqQU4oXT1ikLzrkGCnpLPeC IFkShEjo8zzl023gDRdm9ux MTFHfqbmxOi2h8ipOCSCeE6 yy7a4dO50YKYfsC8ycYXfCZ jekqDwTJkuwtJvrmOkIad1H LB6iDxjMxiddOL5hUYbjEP5 FMcwq8UoeJwigIykPJP9NOV wZypcZIamuIE6mMWggYkwdB LaDK5xk9idyVN6luAjZQS5v ZbwfKD2qSfpmuzbs7xszFO3 vCN5WEwgvKI3VFtwVzGiM2q oIKPitT5qQ73lM5hcUAKtpK jlMWpaDRYigIC1ESA8QUKkn 1xsZXZlbHRleHRcJzAxXCdi Zup9v9trEQTfwQ41tYNqlvW 0rIznXFjasCN2IO80QFcnm4 KcGWLqjUypNKRniW9zSoSoA GxldmVsbmZjbjIzXGxldmVs nnCsFDaagpIce5UobnVubPI 4CHprchZwnAN4jCitVABoG1 I9V102ERvhfjObzoJvQzTlj ln7NIQwuTalcSseuInzcvVd DHybozLdmkYoOvKdvHB6SKp kTvSfFbFyeCJ3LKvqDxJymI R2FGykwQRpqXN8MYbuoSK5G Et1TVi2NFcgWErcHbg4nUfz iKJ1NLicaO8lCBZpM12xIwM 9g3lpfHV8rUC7FLsnpJX5JP bkRdJcG3rpVRExxT8kE67nP 6zlIMCirWicTFkeSKFkwZB6 IXR4LUTrg6kpMUQrwWNfhVX bYtEqPNdqMjd9a0clJVOpdV 54vOYmukJ2zMiwFB60VUfcb 9QeFIPylYnjUXIikR3vGqBm XGxldmVsbmZjbjIzXGxldmV tuuVbQQtxszUlj7RsxlUhxH I5UUqafrRiyQL0iNvdPBPwY 0N5J161BGmmfcLcinFcEyYl qhu5RZUgoXqobWxkpCvodhK tTCnskuRrbcRhXpBmnXB2EK lxSqFxCjDkeDN3HMbyJrWzx BH5JCtsuHKdyPG9TCgmrEG8 EMu9PEy2QIpgJNmyGoe0yIc pqRQ1VQdwbV7mZMJkB48lEn I7e0fhcYQ9cCR7AMrvlXM5Z XfmXiWaK3ocZVIdeQ8qN86q E1nlYNFyePycADehONTgdMR 6YFT9GAXao8mwEFCiaFWraT PlMqWuFMpwIle5n5piYJAkf F98bTUhpxG2sAsqIL15YPod i4LeBDHchMalVBDlzU3lBgA zXGxldmVsbmZjbjIzXGxldm BnhdUwLPfkocAtc8AxfxMoi RT2LZwqgnIphZD4eRcwLXTq W2K1M811YKgtjdMzdpMoNxB zobc7BXEsrCwwuIkerNyqkm YfIWajmrRnulKbXtNqzEG9N MgdLrIpPcIdqRN4AKgjVuXj mRG3GMhbgMYerIU7OYornJY 3SJm2LXu6LWnfBRyyHar5bI kgkEY7GMsywZ5dFVWmI04cQ dU7pW25GIrfcSjzlV89SOQd dSToaRKmySR7NHpgtIwatE5 9GTLvbRQsHGzle3FsZINhQa I8TBH4QSBvkDgouO43WGPci OCpY968agDvLVosSA27OIFn cGVydzEyMjQwXHBhcGVyaDE 4SXQqAY3ylhorPLkiCTikYB OpqeG3CVMriHBqV9WwTVNyK J2hsjrjDVY4TObyMUTkOSC2 OwRaLXNvn4Zchmq2YbErdIp 4q7tfLHXmJADpxDjbr0bxAF L3MSXlsVCqT3tdlW1xYXDkB P8nubojk2lgVHriVYiyNBMt kWM3mbV0NWYrhJZtK0QwnI6 wCKFzSAHqlaXzoJhsxU8hKi vhqxHgGZXhTXLMAvGJNm5QA 1eLFOwDCQ7ZPBQtDXXKSTnC TVSIICFDUQyBU8NVNUcLLaF xDVCbFXPvM3aOH1jRK9nhVr gfKgLsBXohYCVmZxNfS6SkD FLzgfnxKVIzOMSNOL1KJXKC DHIOMv3ZFOT4FSIewvojvBZ 5RSaogbFyoIv7nABhbHoziY 5cYlxmczIyXGNmMSBObyBNY CtjV11mulWgT0SvsHLkHHDv BQwmVM59jXUxDXJfaJDcCYu 6oR1cDBplwAahbfEKpWKajO 1lblxiMFxjZjBccGFyXGxpM FxsczBccGFyfQ== [facility] Work Phone: Case Report [facility] Work Phone: Clinical History c5yhyQUqYZZqtFQqNHOr M1x oevWhNZXntVBbT8XyyqvxNT buJL6fYL1hgIpwvGQvgCVeM EUqKbOdp8vjl578dOHqe9iw ZNJPpvwpoLy0oXstR66rv2L 5KqevO5huJTRvTDctCVGzHV rvuKEzXTz0XPQtbWNhjjJsK iDsMEBjrAHbmNK2DRJdXQ2x kofmZMdhXHarHTYwafN6YVP wpFGeD2XoXEHsQB5sjkgkHS F2OHxoDSEpUVH4DtRpTWFun 7Jneuq0UdFsyBy6o1naNOMn OPPueIbcj8kxDRD4MKSfdUP aA0kxlI6lOMShSF0fmzqdg1 jyZFfnVIguODKfhZM8vvJ6U RZimCJgV9QjcZ9gMUOjRPPm zhXqyXoccV6mIgQtHKfbUtV gUmVuYWwgdHJhbnNwbGFudC 5lZMFxav5= [facility] Work Phone: For Immediate Release to Patient's [facility]? Yes Yes [facility] Work Phone: Gross Description d0fikCLcHENufZWsYRDj M1x dlmKeQIIulHTsU7BcnaheRN fsON8tKW0gcMfgeKUnyGCkZ HVcRtSrc2olu184nCSed1nr ZNQOigdjlSo2xEiuT41cj6Z 9KuhgA03ftMWeBZL2XBWwCS QgwGHnEWWgDPA4WJZuzJSwI 6gxNYPyBD2jueraFTbtNYsw TJLyaSX3TBDakNSpY6YdJFM kTMydLXTjsdd1ZmXiMc4vrU VyeTcyMFxwYXJkXHBsYWluX GZzMjAgTExMIEJBTFxwYXIg BSTntZQzQCe3NWMcpZ9eqCJ qwhHdlPSinK0hlSeuYRwpGJ IgMSBUUCBzbGlkZSBQYXAgc 8SpsL4uhJYkEJZoubNphFBe XHBhcn0= [facility] Work Phone: [facility] Work Phone: HEPATIC FUNCTION PANELon Albumin [Mass/Vol] 3.2 g/dL Low 3.5-5.0 [facility] Comment on above: Performed By: #### L EGN #### [facility] (DEFAULT) [address] [place] [address] ALP [Catalytic activity/Vol] 118 U/L Normal 32-126 [facility] Comment on above: Performed By: #### L EGN #### [facility] (DEFAULT) [address] [place] [address]158 ALT [Catalytic activity/Vol] 25 U/L Normal 10-52 [facility] Comment on above: Performed By: #### L EGN #### [facility] (DEFAULT) [address] [place] [address]6828 AST [Catalytic activity/Vol] 32 U/L Normal 10-39 [facility] Comment on above: Performed By: #### L EGN #### [facility] (DEFAULT) [address] [place] [address] 66776 Bilirubin [Mass/Vol] 1.0 mg/dL Normal <1.5 [facility] Comment on above: Performed By: #### L EGN #### [facility] (DEFAULT) [address] [place] [address]104 Bilirubin.indirect [Mass/Vol] 0.3 mg/dL High <0.3 [facility] Comment on above: Performed By: #### L EGN #### [facility] (DEFAULT) [address] [place] [address] 31157 Protein [Mass/Vol] 6.5 g/dL Normal 6.4-8.3 [facility] Comment on above: Performed By: #### L EGN #### [facility] (DEFAULT) [address] [place] [address] 17298 Albumin [Mass/Vol] 3.2 g/dL Low 3.5 - 5.0 g/dL [facility] ALP [Catalytic activity/Vol] 118 U/L 32 - 126 U/L [facility] ALT [Catalytic activity/Vol] 25 U/L 10 - 52 U/L [facility] AST [Catalytic activity/Vol] 32 U/L 10 - 39 U/L [facility] Bilirubin [Mass/Vol] 1.0 mg/dL NINF - 1.5 mg/dL [facility] Bilirubin.direct [Mass/Vol] 0.3 mg/dL High NINF - 0.3 mg/dL [facility] Protein [Mass/Vol] 6.5 g/dL 6.4 - 8.3 g/dL [facility] HISTOPLASMA AND BLASTOMYCES ANTIGEN, ENZYME IMMUNOASSAY, SERMon 09-03-2023 Histoplasma/Blastomyc es Ag Result Detected Critically abnormal Not Detected [facility] Histoplasma/Blastomyc es Ag Value 5.3 ng/mL [facility] Interpretation and review of laboratory results Abnormal [facility] IMMUNOPHENOTYPING, TISSUE/FL UIDon 09-03-2023 BKR DX CODE Use Ordering Normal [facility] Comment on above: Order Comment: Pleas e draw at specified interval PRIOR to dose. Do not hold dose to wait for level. Specimens batched twice per day, (M-F) and once per day weekends Method performed is a chemiluminescent microparticle immunoasssay on the [employer] i2000. The range is based on experience at [facility] and users should be aware that target concentrations vary widely depending on concomitant therapy, time post-transplant, and desired degree of immunosuppression. Performed By: #### T ACRO #### [facility] (DEFAULT) [address] [place] [address] Flow Interpretation See Comment [facility] Comment on above: Order Comment: Pleas e draw at specified interval PRIOR to dose. Do not hold dose to wait for level. Specimens batched twice per day, (M-F) and once per day weekends Method performed is a chemiluminescent microparticle immunoasssay on the [employer] i2000. The range is based on experience at [facility] and users should be aware that target concentrations vary widely depending on concomitant therapy, time post-transplant, and desired degree of immunosuppression. Performed By: #### T ACRO #### [facility] (DEFAULT) [address] [place] [address] Flow Interpreted by: Yossi Perla MD, PhD [facility] Comment on above: Order Comment: Pleas e draw at specified interval PRIOR to dose. Do not hold dose to wait for level. Specimens batched twice per day, (M-F) and once per day weekends Method performed is a chemiluminescent microparticle immunoasssay on the [employer] i2000. The range is based on experience at [facility] and users should be aware that target concentrations vary widely depending on concomitant therapy, time post-transplant, and desired degree of immunosuppression. Performed By: #### T ACRO #### [facility] (DEFAULT) [address] [place] [address] MAGNESIUMon 09-03-2023 Magnesium [Mass/Vol] 1.6 mg/dL Normal 1.6-2.6 [facility] Comment on above: Performed By: #### T ACRO #### [facility] (DEFAULT) [address] [place] [address] Interpretation and review of laboratory results Normal [facility] Magnesium [Mass/Vol] 1.6 mg/dL 1.6 - 2 .6 mg/dL [facility] No Panel Informationon 09-03 Interpretation and review of laboratory results Abnormal [facility] PARVOVIRUS (B19) DNA, PCR, B LOODon 09-03-2023 PARVOVIRUS B19 BY RAPID PCR Not detected Not Detected [facility] NM SPEC SOURCE Whole Blood [facility] Portable XR Chest Viewson RADIOLOGY RADIOLOGY [facility] Radiology Study observation (narrative) [facility] Portable XR Chest ViewsOrder ed By: [place] on 09-03-2023 [facility] Work Phone: XR CHEST PORTABLEon 09-03-20 XR [...] have reviewed and approved this report. [facility] ACID FAST CULTUREon 09-02-20 23 Bacteria identified Cx Nom (Unsp spec) NO GROWTH DAY 42 OF 42 Normal [facility] Comment on above: Performed By: #### H EMOGC #### [facility] (DEFAULT) [address] [address] Fluorochrome Stain No acid Fast Bacillu s Seen [facility] Comment on above: Performed By: #### H EMOGC #### [facility] (DEFAULT) [address] [address] Bacteria identified Cx Nom (Unsp spec) NO GROWTH DAY 42 OF 42 Normal [facility] Comment on above: Order Comment: Pleas e draw at specified interval PRIOR to dose. Do not hold dose to wait for level. Specimens batched twice per day, (M-F) and once per day weekends Method performed is a chemiluminescent microparticle immunoasssay on the [employer] i2000. The range is based on experience at [facility] and users should be aware that target concentrations vary widely depending on concomitant therapy, time post-transplant, and desired degree of immunosuppression. Performed By: #### T ACRO #### [facility] (DEFAULT) [address] [address] Fluorochrome Stain No acid Fast Bacillu s Seen Normal [facility] Comment on above: Order Comment: Pleas e draw at specified interval PRIOR to dose. Do not hold dose to wait for level. Specimens batched twice per day, (M-F) and once per day weekends Method performed is a chemiluminescent microparticle immunoasssay on the [employer] i2000. The range is based on experience at [facility] and users should be aware that target concentrations vary widely depending on concomitant therapy, time post-transplant, and desired degree of immunosuppression. Performed By: #### T ACRO #### [facility] (DEFAULT) [address] [address] ASPERGILLUS (GALACTOMANNAN), ANTIGENon 09-02-2023 Galactomannan Ag IA Qn <0.500 NINF [facility] ASPERGILLUS ANTIGEN, BALon 1 Aspergillus Galactomannan Antigen, BAL <0.500 Normal <0.5 [facility] Comment on above: Result Comment: ADDITIONAL INFORMATION This is a qualitative test and the resulted index value is not indicative of disease severity. Serial testing is recommended for patients at high risk for invasive aspergillosis. This assay was performed using the FDA-cleared [employer] Platelia Aspergillus Galactomannan EIA. Test Performed by: [place] [address] Machine Fixer: Rosendo Bose M.D. Ph.D.; CLIA# [id number] Performed By: #### T ACRO #### [facility] (DEFAULT) [address] [place] [address] Aspergillus Galactomannan Antigen, BAL <0.500 Normal <0.5 [facility] Comment on above: Order Comment: Pleas e draw at specified interval PRIOR to dose. Do not hold dose to wait for level. Specimens batched twice per day, (M-F) and once per day weekends Method performed is a chemiluminescent microparticle immunoasssay on the [employer] i2000. The range is based on experience [...] This assay was performed using the FDA-cleared [employer] Platelia Aspergillus Galactomannan EIA. Test Performed by: [facility] [address] [place] [address] Machine Fixer: Rosendo Bose M.D. Ph.D.; CLIA# [id number] Performed By: #### T ACRO #### [facility] (DEFAULT) [address] [place] [address] ATYPICAL BACTERIAL PNEUMONIA ,PCROrdered By: Shari Contreras on 09-02-2023 B. parapertussis DNA ESTELITA+probe Ql (Unsp spec) Not detected Not Detected [facility] B. pertussis DNA ESTELITA+probe Ql (Unsp spec) Not detected Not Detected [facility] C. pneumoniae DNA ESTELITA+probe Ql (Unsp spec) Not detected Not Detected [facility] Interpretation and review of laboratory results Normal [facility] M. pneumoniae DNA ESTELITA+probe Ql (Unsp spec) Not detected Not Detected [facility] ATYPICAL BACTERIAL PNEUMONIA ,PCRon 09-02-2023 Bordetella Parapertussis Not detected Normal Not Detected [facility] Comment on above: Order Comment: Viral [...] by [facility]. It has not been cleared or approved by the FDA. The laboratory is required under CLIA as qualified to perform high-complexity testing. This test is used for clinical purposes. It should not be regarded as investigational or for research. Performed By: #### H [facility] #### [facility] (DEFAULT) [address] [address] Bordetella Pertussis Not detected Normal Not Detected [facility] Comment on above: Order Comment: Viral [...] by [facility]. It has not been cleared or approved by the FDA. The laboratory is required under CLIA as qualified to perform high-complexity testing. This test is used for clinical purposes. It should not be regarded as investigational or for research. Performed By: #### H [facility] #### [facility] (DEFAULT) [address] [address] Chlamydia Pneumoniae Not detected Normal Not Detected [facility] Comment on above: Order Comment: Viral [...] by [facility]. It has not been cleared or approved by the FDA. The laboratory is required under CLIA as qualified to perform high-complexity testing. This test is used for clinical purposes. It should not be regarded as investigational or for research. Performed By: #### H [facility] #### [facility] (DEFAULT) [address] [address] Mycoplasma Pneumoniae Not detected Normal Not Detected [facility] Comment on above: Order Comment: Viral [...] by [facility]. It has not been cleared or approved by the FDA. The laboratory is required under CLIA as qualified to perform high-complexity testing. This test is used for clinical purposes. It should not be regarded as investigational or for research. Performed By: #### H EMOGC #### [facility] (DEFAULT) [address] [address] BAL CONSULTon 09-02-2023 ALVEOLAR MACROPHAGES 33 % [facility] Comment on above: Order Comment: BAL c onsultIf > 15% lymphocytes - please send for flow. Performed By: #### H EMOGC #### [facility] (DEFAULT) [address] [address] Bal comments Correlation with microbiology stains and cultures is recommended. Correlation with viral studies is recommended. [facility] Comment on above: Order Comment: BAL c onsultIf > 15% lymphocytes - please send for flow. Performed By: #### H EMOGC #### [facility] (DEFAULT) [address] [address] Bal Diff Quik Stain Quality Check Acceptable [facility] Comment on above: Order Comment: BAL c onsultIf > 15% lymphocytes - please send for flow. Performed By: #### H EMOGC #### [facility] (DEFAULT) [address] [address] Bal Reviewed By: Leonardo Peralta MD [facility] Comment on above: Order Comment: BAL c onsultIf > 15% lymphocytes - please send for flow. Performed By: #### H EMOGC #### [facility] (DEFAULT) [address] [address] BKR BAL INTERPRETATION Cellular specimen comprised of alveolar macrophages and small lymphocytes. No definitive microorganisms are observed. Rare degenerating cells with changes suggestive of viral cytopathic effect are noted. Moderate degenerative changes. [facility] Comment on above: Order Comment: BAL c onsultIf > 15% lymphocytes - please send for flow. Performed By: #### H EMOGC #### [facility] (DEFAULT) [address] [place] [address] BKR DX CODE Use Ordering [facility] Comment on above: Order Comment: BAL c onsultIf > 15% lymphocytes - please send for flow. Performed By: #### H EMOGC #### [facility] (DEFAULT) [address] [place] [address] Eosinophils/100 WBC (Bld) 0 % [facility] Comment on above: Order Comment: BAL c onsultIf > 15% lymphocytes - please send for flow. Performed By: #### H EMOGC #### [facility] (DEFAULT) [address] [place] [address] Lymphocytes/100 WBC (Bld) 49 % [facility] Comment on above: Order Comment: BAL c onsultIf > 15% lymphocytes - please send for flow. Performed By: #### H EMOGC #### [facility] (DEFAULT) [address] [place] [address] Neutrophils/100 WBC (Bld) 18 % [facility] Comment on above: Order Comment: BAL c onsultIf > 15% lymphocytes - please send for flow. Performed By: #### H EMOGC #### [facility] (DEFAULT) [address] [place] [address] ALVEOLAR MACROPHAGES 32 % [facility] Comment on above: Order Comment: BAL c onsult for cell differential and pathologist review. Please do flow cytometry if > 12% lymphocytes Performed By: #### H EMOGC #### [facility] (DEFAULT) [address] [place] [address] Bal comments Correlation with microbiology stains and cultures is recommended. [facility] Comment on above: Order Comment: BAL c onsult for cell differential and pathologist review. Please do flow cytometry if > 12% lymphocytes Performed By: #### H EMOGC #### [facility] (DEFAULT) [address] [address] Bal Diff Quik Stain Quality Check Acceptable [facility] Comment on above: Order Comment: BAL c onsult for cell differential and pathologist review. Please do flow cytometry if > 12% lymphocytes Performed By: #### H EMOGC #### [facility] (DEFAULT) [address] [address] Bal Reviewed By: Leonardo Peralta MD [facility] Comment on above: Order Comment: BAL c onsult for cell differential and pathologist review. Please do flow cytometry if > 12% lymphocytes Performed By: #### H EMOGC #### [facility] (DEFAULT) [address] [address] BKR BAL INTERPRETATION Cellular specimen comprised of alveolar macrophages and small lymphocytes. No definitive microorganisms are observed. Moderate degenerative changes. [facility] Comment on above: Order Comment: BAL c onsult for cell differential and pathologist review. Please do flow cytometry if > 12% lymphocytes Performed By: #### H EMOGC #### [facility] (DEFAULT) [address] [address] BKR DX CODE Use Ordering [facility] Comment on above: Order Comment: BAL c onsult for cell differential and pathologist review. Please do flow cytometry if > 12% lymphocytes Performed By: #### H EMOGC #### [facility] (DEFAULT) [address] [address] Eosinophils/100 WBC (Bld) 0 % [facility] Comment on above: Order Comment: BAL c onsult for cell differential and pathologist review. Please do flow cytometry if > 12% lymphocytes Performed By: #### H EMOGC #### [facility] (DEFAULT) [address] [address] Lymphocytes/100 WBC (Bld) 57 % [facility] Comment on above: Order Comment: BAL c onsult for cell differential and pathologist review. Please do flow cytometry if > 12% lymphocytes Performed By: #### H EMOGC #### [facility] (DEFAULT) [address] [place] [address] Neutrophils/100 WBC (Bld) 11 % [facility] Comment on above: Order Comment: CARRIE ro for cell differential and pathologist review. Please do flow cytometry if > 12% lymphocytes Performed By: #### H EMOGC #### [facility] (DEFAULT) [address] [place] [address] BRONCHOSCOPYon 09-02-2023 Radiology Study observation (narrative) [facility] Bacteria identified Cx Nom ( Bld)on 09-02-2023 Bacteria identified Cx Nom (Unsp spec) NO GROWTH DAY 5 OF 5 [facility] CBC,PLATELETSon 09-02-2023 Hematocrit (Bld) [Volume fraction] 39.9 % Normal 39.6-48.8 [facility] Comment on above: Performed By: #### H EMOGC #### [facility] (DEFAULT) [address] [place] [address] Hemoglobin (Bld) [Mass/Vol] 12.9 g/dL Low 13.4-16.8 [facility] Comment on above: Performed By: #### H EMOGC #### [facility] (DEFAULT) [address] [address] MCV (RBC) [Entitic vol] 86.4 fL Normal 79.0-94.5 [facility] Comment on above: Performed By: #### H EMOGC #### [facility] (DEFAULT) [address] [place] [address] Mean Cell Hgb 27.9 pg Normal 26.1-33.3 [facility] Comment on above: Performed By: #### H EMOGC #### [facility] (DEFAULT) [address] [address] Mean Cell Hgb Conc 32.3 g/dL Normal 31.9-36.5 [facility] Comment on above: Performed By: #### H EMOGC #### [facility] (DEFAULT) [address] [place] [address] Platelet mean volume (Bld) [Entitic vol] 9.5 fL Normal 8.7-12.3 [facility] Comment on above: Performed By: #### H EMOGC #### [facility] (DEFAULT) [address] [place] [address] Platelets (Bld) [#/Vol] 210 10*3/uL Normal 146-337 [facility] Comment on above: Performed By: #### H EMOGC #### [facility] (DEFAULT) [address] [place] [address] RBC (Bld) [#/Vol] 4.62 10*6/uL Normal 4.38-5.83 [facility] Comment on above: Performed By: #### H EMO #### [facility] (DEFAULT) [address] [place] [address] RBC Distribution 13.2 % Normal 10.9-14.3 [facility] Comment on above: Performed By: #### H EMO #### [facility] (DEFAULT) [address] [place] [address] WBC (Bld) [#/Vol] 4.12 10*3/uL Normal 3.73-10.10 [facility] Comment on above: Performed By: #### H EMOGC #### [facility] (DEFAULT) [address] [place] [address] Erythrocyte distribution width (RBC) [Ratio] 13.2 % 10.9 - 14.3 % [facility] Hematocrit (Bld) [Volume fraction] 39.9 % 39.6 - 48.8 % [facility] Hemoglobin (Bld) [Mass/Vol] 12.9 g/dL Low 13.4 - 16.8 g/dL [facility] Interpretation and review of laboratory results Abnormal [facility] MCH (RBC) [Entitic mass] 27.9 pg 26.1 - 33.3 pg [facility] MCHC (RBC) [Mass/Vol] 32.3 g/dL 31.9 - 36.5 g/dL [facility] MCV (RBC) [Entitic vol] 86.4 fL 79.0 - 94.5 fL [facility] Platelet mean volume (Bld) [Entitic vol] 9.5 fL 8.7 - 12.3 fL [facility] Platelets (Bld) [#/Vol] 210 10*3/uL 146 - 337 K/uL [facility] RBC (Bld) [#/Vol] 4.62 10*6/uL [facility] WBC (Bld) [#/Vol] 4.12 10*3/uL 3.73 - 10. 10 K/uL [facility] CHEM 7 (LYTES,BUN,CREA,GLUC) on 09-02-2023 Anion gap [Moles/Vol] 13 mmol/L Normal 7-17 [facility] Comment on above: Performed By: #### Y PNRP #### [facility] (DEFAULT) [address] [address] Chloride [Moles/Vol] 105 mmol/L Normal 98-108 [facility] Comment on above: Performed By: #### Y PNRP #### [facility] (DEFAULT) [address] [place] [address] CO2 [Moles/Vol] 22 mmol/L Normal 21-31 [facility] Comment on above: Performed By: #### Y PNRP #### [facility] (DEFAULT) [address] [address] Creatinine [Mass/Vol] 1.25 mg/dL Normal 0.70-1.30 [facility] Comment on above: Performed By: #### Y PNRP #### [facility] (DEFAULT) [address] [address] GFR/1.73 sq M.predicted among non-blacks MDRD (S/P/Bld) [Vol rate/Area] 69 mL/min/{1.73_m2} Normal >=60 [facility] Comment on above: Result Comment: Repo rted eGFR is based on the CKD-EPI 2020 equation using creatinine, age, and sex. Performed By: #### Y PNRP #### [facility] (DEFAULT) [address] [place] [address] Glucose [Mass/Vol] 105 mg/dL High 70-99 [facility] Comment on above: Performed By: #### Y PNRP #### [facility] (DEFAULT) [address] [place] [address] Osmolality [Osmolality] 287 mosm/kg Normal 278-305 [facility] Comment on above: Performed By: #### Y PNRP #### [facility] (DEFAULT) [address] [place] [address] Potassium [Moles/Vol] 4.3 mmol/L Normal 3.5-5.0 [facility] Comment on above: Performed By: #### Y PNRP #### [facility] (DEFAULT) [address] [place] [address] Sodium [Moles/Vol] 136 mmol/L Normal 135-145 [facility] Comment on above: Performed By: #### Y PNRP #### [facility] (DEFAULT) [address] [place] [address] Urea nitrogen [Mass/Vol] 16 mg/dL Normal 7-25 [facility] Comment on above: Performed By: #### Y PNRP #### [facility] (DEFAULT) [address] [place] [address] Urea nitrogen/Creatinine [Mass ratio] 13 mg/mg Normal [facility] Comment on above: Performed By: #### Y PNRP #### [facility] (DEFAULT) [address] [place] [address] Anion gap [Moles/Vol] 13 mmol/L 7 - 17 mmol/L [facility] [facility] Chloride [Moles/Vol] 105 mmol/L 98 - 10 8 mmol/L [facility] CO2 [Moles/Vol] 22 mmol/L 21 - 31 mmol/L [facility] Creatinine [Mass/Vol] 1.25 mg/dL 0.70 - 1.30 mg/dL [facility] eGFR, CKD-EPI, Male 69 - PINF [facility] Glucose [Mass/Vol] 105 mg/dL High 70 - 99 mg/dL [facility] Osmolality Calc [Osmolality] [address] [facility] Potassium [Moles/Vol] 4.3 mmol/L 3.5 - 5.0 mmol/L [facility] Sodium [Moles/Vol] 136 mmol/L 135 - 145 mmol/L [facility] Urea nitrogen [Mass/Vol] 16 mg/dL 7 - 25 mg/dL [facility] Urea nitrogen/Creatinine [Mass ratio] 13 mg/mg [facility] CMV PCR,FLUIDS,URINE,EYE ETC on 09-02-2023 CMV by PCR Result Negative Normal Negative [facility] Comment on above: Result Comment: ADDITIONAL INFORMATION This test was developed and its performance characteristics determined by [facility] in a manner consistent with CLIA requirements. This test has not been cleared or approved by the U.S. Food and Drug Administration. Test Performed by: [facility] - [address] [address] Machine Fixer: Rosendo Bose M.D. Ph.D.; CLIA# [id number] Performed By: #### T ACRO #### [facility] (DEFAULT) [address] [place] [address] CMV BY PCR SOURCE BAL RML Normal [facility] Comment on above: Performed By: #### T ACRO #### [facility] (DEFAULT) [address] [place] [address] CMV by PCR Result Negative Normal Negative [facility] Comment on above: Result Comment: ADDITIONAL INFORMATION This test was developed and its performance characteristics determined by [facility] in a manner consistent with CLIA requirements. This test has not been cleared or approved by the U.S. Food and Drug Administration. Test Performed by: [facility] - [address] [address] Machine Fixer: Rosendo Bose M.D. Ph.D.; CLIA# [id number] Performed By: #### T ACRO #### [facility] (DEFAULT) [address] [address] CMV BY PCR SOURCE BAL LLL Normal [facility] Comment on above: Performed By: #### T ACRO #### [facility] (DEFAULT) [address] [place] [address] CYTOLOGY, NON-GYNon 09-02-20 CYTOLOGIC DIAGNOSIS [facility] Comment on above: Result Comment: A. B RONCHOALVEOLAR LAVAGE, LEFT LOWER LOBE (CYTOLOGY): FINAL DIAGNOSIS: No Malignant Cells Are Identified Hypocellular Specimen Performed By: #### N RONYGNGRAEMEFROBERTA #### [facility] (DEFAULT) [address] [place] [address] Case Report Normal [facility] Comment on above: Result Comment: [facility]ology Report Case: [id number] Authorizing Provider: Crow Diaz MD Collected: 09/02/2023 08:38 AM Ordering Location: [facility] Received: 09/02/2023 10:44 AM Pathologist: Sherice Jimenez MD Specimen: BRONCHOALVEOLAR LAVAGE, LLL BAL Performed By: #### N LITZY #### [facility] (DEFAULT) [address] [address] Clinical History Renal transplant. Normal [facility] Comment on above: Performed By: #### N LITZY #### [facility] (DEFAULT) [address] [address] Gross Description Normal [facility] Comment on above: Result Comment: LLL BAL 1 ml hazy colorless fld unfixed 1 TP slide Pap stain For Immediate Release to Patient's MyChart? Yes Performed By: #### N ONGNNONFNA #### [facility] (DEFAULT) [address] [address] FUNGUS CULTUREon 09-02-2023 Bacteria identified Cx Nom (Unsp spec) Normal [facility] Comment on above: Order Comment: Ident ification was performed on the MALDI-TOF mass spectrometer [employer]. This test was developed by [facility]. It has not been cleared or approved by the FDA. The laboratory is regulated under CLIA as qualified to perform high-complexity testing. This test is used for clinical purposes. It should not be regarded as investigational or for research. Result Comment: [employer] Histoplasma capsulatum Performed By: #### H EMOGC #### [facility] (DEFAULT) [address] [address] Bacteria identified Cx Nom (Unsp spec) NO GROWTH DAY 28 OF 28 Normal [facility] Comment on above: Order Comment: Pleas e draw at specified interval PRIOR to dose. Do not hold dose to wait for level. Specimens batched twice per day, (M-F) and once per day weekends Method performed is a chemiluminescent microparticle immunoasssay on the [employer] i2000. The range is based on experience at [facility] and users should be aware that target concentrations vary widely depending on concomitant therapy, time post-transplant, and desired degree of immunosuppression. Performed By: #### T ACRO #### [facility] (DEFAULT) [address] [address] HEPATIC FUNCTION PANELon Albumin [Mass/Vol] 3.2 g/dL Low 3.5-5.0 [facility] Comment on above: Performed By: #### Y PNRP #### [facility] (DEFAULT) [address] [place] [address] ALP [Catalytic activity/Vol] 107 U/L Normal 32-126 [facility] Comment on above: Performed By: #### Y PNRP #### [facility] (DEFAULT) [address] [place] [address] ALT [Catalytic activity/Vol] 20 U/L Normal 10-52 [facility] Comment on above: Performed By: #### Y PNRP #### [facility] (DEFAULT) [address] [place] [address] AST [Catalytic activity/Vol] 31 U/L Normal 10-39 [facility] Comment on above: Performed By: #### Y PNRP #### [facility] (DEFAULT) [address] [place] [address] Bilirubin [Mass/Vol] 1.0 mg/dL Normal <1.5 [facility] Comment on above: Performed By: #### Y PNRP #### [facility] (DEFAULT) [address] [place] [address] Bilirubin.indirect [Mass/Vol] 0.3 mg/dL High <0.3 [facility] Comment on above: Performed By: #### Y PNRP #### [facility] (DEFAULT) [address] [place] [address] Protein [Mass/Vol] 6.6 g/dL Normal 6.4-8.3 [facility] Comment on above: Performed By: #### Y PNRP #### [facility] (DEFAULT) [address] [place] [address] Albumin [Mass/Vol] 3.2 g/dL Low 3.5 - 5.0 g/dL [facility] ALP [Catalytic activity/Vol] 107 U/L 32 - 126 U/L [facility] ALT [Catalytic activity/Vol] 20 U/L 10 - 52 U/L [facility] AST [Catalytic activity/Vol] 31 U/L 10 - 39 U/L [facility] Bilirubin [Mass/Vol] 1.0 mg/dL NINF - 1.5 mg/dL [facility] Bilirubin.direct [Mass/Vol] 0.3 mg/dL High NINF - 0.3 mg/dL [facility] Protein [Mass/Vol] 6.6 g/dL 6.4 - 8.3 g/dL [facility] HISTOPLASMA ANTIGEN, FLUIDon 09-02-2023 FH SOURCE BAL RML Normal [facility] Comment on above: Performed By: #### T ACRO #### [facility] (DEFAULT) [address] [address] Histo FLD interpretation Negative Normal [facility] Comment on above: Result Comment: ADDITIONAL INFORMATION Reference interval: None Detected Reportable Range: Positive Results reported in ng/mL from 0.20 ng/mL to 20.00 ng/mL Positive Results above 20.00 ng/mL are reported as 'Above the Limit of Quantification' Cross-reactions occur with Blastomyces spp., Coccidioides spp., and Paracoccidioides brasiliensis. This test was developed and its performance characteristics determined by [employer]. It has not been cleared or approved by the FDA; however, FDA clearance or approval is not currently required for clinical use. The results are not intended to be used as the sole means for clinical diagnosis or patient management decisions. Test Performed by: [facility] [address] [place] [address] Performed By: #### T ACRO #### [facility] (DEFAULT) [address] [address] Histoplasma Antigen, FLUID Not detected Normal [facility] Comment on above: Performed By: #### T ACRO #### [facility] (DEFAULT) [address] [place] [address] HISTOPLASMA ANTIGEN,URINEon 09-02-2023 H. capsulatum Ag (U) [Mass/Vol] Not detected ng/mL [facility] H. capsulatum Ag IA Ql (U) Not detected Not Detected [facility] HISTOPLASMA CAPSULATUM/BLAST OMYCES SPECIES,PCR FLUIDon 09-02-2023 HISTO/BLASTO RESULT Negative Normal Not Applicable [facility] Comment on above: Result Comment: A Ne gative result from BAL fluid does not rule out the presence of Histoplasma capsulatum because the sensitivity from this source is suboptimal. ADDITIONAL INFORMATION This test was developed and its performance characteristics determined by [facility] in a manner consistent with CLIA requirements. This test has not been cleared or approved by the U.S. Food and Drug Administration. Test Performed by: [address] [address] Machine Fixer: Rosendo Bose M.D. Ph.D.; CLIA# [id number] Performed By: #### T ACRO #### [facility] (DEFAULT) [address] [address] Source BAL RML Normal [facility] Comment on above: Performed By: #### T ACRO #### [facility] (DEFAULT) [address] [address] HIV 1 AND 2 ANTIBODIES/P24 A NTIGENOrdered By: Wilma Luque on 09-02-2023 HIV 1+2 Ab+HIV1 p24 Ag IA Ql Non-Reactive Non Reactive [facility] Interpretation and review of laboratory results Normal [facility] HIV 1 AND 2 ANTIBODIES/P24 A NTIGENon 09-02-2023 HIV-1/HIV-2 Ab With p24 Antigen Non-Reactive Normal Non Reactive [facility] Comment on above: Performed By: #### L [id number] ####[facility] (DEFAULT)[address] [address] LEGIONELLA CULTUREon 023 Bacteria identified Cx Nom (Unsp spec) NO GROWTH DAY 7 OF 7 Normal [facility] Comment on above: Performed By: #### H EMO #### [facility] (DEFAULT) [address] [place] [address] Bacteria identified Cx Nom (Unsp spec) NO GROWTH DAY 7 OF 7 Normal [facility] Comment on above: Order Comment: BAL l egionella culture Performed By: #### L EGN #### [facility] (DEFAULT) [address] [address] LEGIONELLA PCRon 09-02-2023 Legionella species, Culture BAL RML Normal [facility] Comment on above: Performed By: #### T ACRO #### [facility] (DEFAULT) [address] [address] Legionella, pcr result Negative Normal Not Applicable [facility] Comment on above: Result Comment: ADDITIONAL INFORMATION This test was developed and its performance characteristics determined by [facility] in a manner consistent with CLIA requirements. This test has not been cleared or approved by the U.S. Food and Drug Administration. Test Performed by: [facility] - [address] [address] Machine Fixer: Rosendo Bose M.D. Ph.D.; CLIA# [id number] Performed By: #### T ACRO #### [facility] (DEFAULT) [address] [place] [address] LOWER RESPIRATORY CULTURE, B ACTERIALon 09-02-2023 Bacteria identified Cx Nom (Unsp spec) NO GROWTH DAY 2 OF 2 Normal [facility] Comment on above: Performed By: #### T ACRO #### [facility] (DEFAULT) [address] [address] Microscopic observation Gram stain Nom (Unsp spec) [facility] Comment on above: Result Comment: Cyto centrifuge preparation Neutrophils, Rare Red Blood Cells Present No organisms seen Performed By: #### T ACRO #### [facility] (DEFAULT) [address] [place] [address] Bacteria identified Cx Nom (Unsp spec) NO GROWTH DAY 2 OF 2 Normal [facility] Comment on above: Order Comment: BAL b acterial respiratory culture Performed By: #### H EMOGC #### [facility] (DEFAULT) [address] [place] [address] Microscopic observation Gram stain Nom (Unsp spec) Normal [facility] Comment on above: Order Comment: BAL b acterial respiratory culture Result Comment: Cyto centrifuge preparation Neutrophils, Moderate Red Blood Cells Present No organisms seen Performed By: #### H EMO #### [facility] (DEFAULT) [address] [place] [address] MAGNESIUMon 09-02-2023 Magnesium [Mass/Vol] 1.7 mg/dL Normal 1.6-2.6 [facility] Comment on above: Performed By: #### L EGN #### [facility] (DEFAULT) [address] [place] [address] Interpretation and review of laboratory results Normal [facility] Magnesium [Mass/Vol] 1.7 mg/dL 1.6 - 2 .6 mg/dL [facility] No Panel Informationon 09-02 Interpretation and review of laboratory results Abnormal [facility] PNEUMOCYSTIS JIROVECI,PCRon 09-02-2023 PN Report Status DNR Normal [facility] Comment on above: Performed By: #### T ACRO #### [facility] (DEFAULT) [address] [place] [address] PN Specimen Source BAL RML Normal [facility] Comment on above: Performed By: #### T ACRO #### [facility] (DEFAULT) [address] [place] [address] Pneum jiroveci comment DNR Normal [facility] Comment on above: Performed By: #### T ACRO #### [facility] (DEFAULT) [address] [address] Pneumocystis jiroveci,PCR result Negative Normal Not Applicable [facility] Comment on above: Result Comment: ADDITIONAL INFORMATION This test was developed and its performance characteristics determined by [facility] in a manner consistent with CLIA requirements. This test has not been cleared or approved by the U.S. Food and Drug Administration. Test Performed by: [facility] [place] [address] Machine Fixer: Rosendo Bose M.D. Ph.D.; CLIA# [id number] Performed By: #### T ACRO #### [facility] (DEFAULT) [address] [address] PN Report Status DNR Normal [facility] Comment on above: Performed By: #### Y PNRP #### [facility] (DEFAULT) [address] [address] PN Specimen Source BAL LLL Normal [facility] Comment on above: Performed By: #### Y PNRP #### [facility] (DEFAULT) [address] [address] Pneum jiroveci comment DNR Normal [facility] Comment on above: Performed By: #### Y PNRP #### [facility] (DEFAULT) [address] [address] Pneumocystis jiroveci,PCR result Negative Normal Not Applicable [facility] Comment on above: Result Comment: ADDITIONAL INFORMATION This test was developed and its performance characteristics determined by [facility] in a manner consistent with CLIA requirements. This test has not been cleared or approved by the U.S. Food and Drug Administration. Test Performed by: [place] [address] Machine Fixer: Rosendo Bose M.D. Ph.D.; [facility]# [id number] Performed By: #### Y [facility] #### [facility] (DEFAULT) [address] [address] TACROLIMUS LEVEL, TROUGH (NM E DRUG LEVEL)on 09-02-2023 Interpretation and review of laboratory results Normal [facility] Tacrolimus (Bld) [Mass/Vol] 4.2 ng/mL [facility] Tacrolimus, Trough 4.2 ng/mL Normal [facility] Transplant: 4.0-12.0, Therapeutic: 5.0-15.0 [facility] Comment on above: Order Comment: Pleas e draw at specified interval PRIOR to dose. Do not hold dose to wait for level. Specimens batched twice per day, (M-) and once per day weekends Method performed is a chemiluminescent microparticle immunoasssay on the [employer] i2000. The range is based on experience at [facility] and users should be aware that target concentrations vary widely depending on concomitant therapy, time post-transplant, and desired degree of immunosuppression. Performed By: #### T ACRO #### [facility] (DEFAULT) [address] [address] CBC,PLATELETSon 09-01-2023 Hematocrit (Bld) [Volume fraction] 38.9 % Low 39.6-48.8 [facility] Comment on above: Performed By: #### H [facility] #### [facility] (DEFAULT) [address] [address] Hemoglobin (Bld) [Mass/Vol] 12.7 g/dL Low 13.4-16.8 [facility] Comment on above: Performed By: #### H EMO #### [facility] (DEFAULT) [address] [address] MCV (RBC) [Entitic vol] 84.6 fL Normal 79.0-94.5 [facility] Comment on above: Performed By: #### H EMOGC #### [facility] (DEFAULT) [address] [place] [address] Mean Cell Hgb 27.6 pg Normal 26.1-33.3 [facility] Comment on above: Performed By: #### H EMOGC #### [facility] (DEFAULT) [address] [address] Mean Cell Hgb Conc 32.6 g/dL Normal 31.9-36.5 [facility] Comment on above: Performed By: #### H EMOGC #### [facility] (DEFAULT) [address] [place] [address] Platelet mean volume (Bld) [Entitic vol] 9.4 fL Normal 8.7-12.3 [facility] Comment on above: Performed By: #### H EMOGC #### [facility] (DEFAULT) [address] [address] Platelets (Bld) [#/Vol] 209 10*3/uL Normal 146-337 [facility] Comment on above: Performed By: #### H EMOGC #### [facility] (DEFAULT) [address] [address] RBC (Bld) [#/Vol] 4.60 10*6/uL Normal 4.38-5.83 [facility] Comment on above: Performed By: #### H EMOGC #### [facility] (DEFAULT) [address] [address] RBC Distribution 13.4 % Normal 10.9-14.3 [facility] Comment on above: Performed By: #### H EMOGC #### [facility] (DEFAULT) [address] [address] WBC (Bld) [#/Vol] 4.41 10*3/uL Normal 3.73-10.10 [facility] Comment on above: Performed By: #### H EMOGC #### [facility] (DEFAULT) [address] [address] Erythrocyte distribution width (RBC) [Ratio] 13.4 % 10.9 - 14.3 % [facility] Hematocrit (Bld) [Volume fraction] 38.9 % Low 39.6 - 48.8 % [facility] Hemoglobin (Bld) [Mass/Vol] 12.7 g/dL Low 13.4 - 16.8 g/dL [facility] Interpretation and review of laboratory results Abnormal [facility] MCH (RBC) [Entitic mass] 27.6 pg 26.1 - 33.3 pg [facility] MCHC (RBC) [Mass/Vol] 32.6 g/dL 31.9 - 36.5 g/dL [facility] MCV (RBC) [Entitic vol] 84.6 fL 79.0 - 94.5 fL [facility] Platelet mean volume (Bld) [Entitic vol] 9.4 fL 8.7 - 12.3 fL [facility] Platelets (Bld) [#/Vol] 209 10*3/uL 146 - 337 K/uL [facility] RBC (Bld) [#/Vol] 4.60 10*6/uL [facility] WBC (Bld) [#/Vol] 4.41 10*3/uL 3.73 - 10. 10 K/uL [facility] CHEM 7 (LYTES,BUN,CREA,GLUC) on 09-01-2023 Anion gap [Moles/Vol] 14 mmol/L Normal 7-17 [facility] Comment on above: Performed By: ###Walter UNDERWOOD #### [facility] (DEFAULT) [address] [place] [address] Chloride [Moles/Vol] 103 mmol/L Normal 98-108 [facility] Comment on above: Performed By: ###Walter UNDERWOOD #### [facility] (DEFAULT) [address] [place] [address] CO2 [Moles/Vol] 21 mmol/L Normal 21-31 [facility] Comment on above: Performed By: ###Walter UNDERWOOD #### [facility] (DEFAULT) [address] [place] [address] Creatinine [Mass/Vol] 1.16 mg/dL Normal 0.70-1.30 [facility] Comment on above: Performed By: #### Vale UNDERWOOD #### [facility] (DEFAULT) [address] [place] [address] GFR/1.73 sq M.predicted among non-blacks MDRD (S/P/Bld) [Vol rate/Area] 76 mL/min/{1.73_m2} Normal >=60 [facility] Comment on above: Result Comment: Repo rted eGFR is based on the CKD-EPI 2020 equation using creatinine, age, and sex. Performed By: ###Watler UNDERWOOD #### [facility] (DEFAULT) [address] [place] [address] Glucose [Mass/Vol] 117 mg/dL High 70-99 [facility] Comment on above: Performed By: #### Vale UNDERWOOD #### [facility] (DEFAULT) [address] [place] [address] Osmolality [Osmolality] 285 mosm/kg Normal 278-305 [facility] Comment on above: Performed By: ###Walter UNDERWOOD #### [facility] (DEFAULT) [address] [place] [address] Potassium [Moles/Vol] 4.2 mmol/L Normal 3.5-5.0 [facility] Comment on above: Performed By: #### Vale UNDERWOOD #### [facility] (DEFAULT) [address] [place] [address] Sodium [Moles/Vol] 134 mmol/L Low 135-145 [facility] Comment on above: Performed By: #### Vale UNDERWOOD #### [facility] (DEFAULT) [address] [place] [address] Urea nitrogen [Mass/Vol] 18 mg/dL Normal 7-25 [facility] Comment on above: Performed By: #### G YASMINE #### [facility] (DEFAULT) [address] [place] [address] Urea nitrogen/Creatinine [Mass ratio] 16 mg/mg Normal [facility] Comment on above: Performed By: #### G YASMINE #### [facility] (DEFAULT) [address] [place] [address] Anion gap [Moles/Vol] 14 mmol/L 7 - 17 mmol/L [facility] Chloride [Moles/Vol] 103 mmol/L 98 - 10 8 mmol/L [facility] CO2 [Moles/Vol] 21 mmol/L 21 - 31 mmol/L [facility] Creatinine [Mass/Vol] 1.16 mg/dL 0.70 - 1.30 mg/dL [facility] eGFR, CKD-EPI, Male 76 - PINF [facility] Glucose [Mass/Vol] 117 mg/dL High 70 - 99 mg/dL [facility] Osmolality Calc [Osmolality] 285 [facility] Potassium [Moles/Vol] 4.2 mmol/L 3.5 - 5.0 mmol/L [facility] Sodium [Moles/Vol] 134 mmol/L Low 135 - 145 mmol/L [facility] Urea nitrogen [Mass/Vol] 18 mg/dL 7 - 25 mg/dL [facility] Urea nitrogen/Creatinine [Mass ratio] 16 mg/mg [facility] CRYPTOCOCCAL ANTIGENon 09-01 Cryptococcus Antigen,Serum Negative Normal Negative [facility] Comment on above: Performed By: #### H EMO #### [facility] (DEFAULT) [address] [place] [address] Cryptococcus sp Ag Ql (S) Negative Negative [facility] Interpretation and review of laboratory results Normal [facility] HEPATIC FUNCTION PANELon Albumin [Mass/Vol] 3.3 g/dL Low 3.5-5.0 [facility] Comment on above: Performed By: #### C HM7, MGO, HFP ####[facility] (DEFAULT)[address] [place] [address] ALP [Catalytic activity/Vol] 112 U/L Normal 32-126 [facility] Comment on above: Performed By: #### C HM7, MGO, HFP ####[facility] (DEFAULT)[address] [place] [address] ALT [Catalytic activity/Vol] 21 U/L Normal 10-52 [facility] Comment on above: Performed By: #### C HM7, MGO, HFP ####[facility] (DEFAULT)[address] [place] [address] AST [Catalytic activity/Vol] 29 U/L Normal 10-39 [facility] Comment on above: Performed By: #### C HM7, MGO, HFP ####[facility] (DEFAULT)[address] [place] [address] Bilirubin [Mass/Vol] 1.0 mg/dL Normal <1.5 [facility] Comment on above: Performed By: #### C HM7, MGO, HFP ####[facility] (DEFAULT)[address] [place] [address] Bilirubin.indirect [Mass/Vol] 0.2 mg/dL Normal <0.3 [facility] Comment on above: Performed By: #### C HM7, MGO, HFP ####[facility] (DEFAULT)[address] [place] [address] Protein [Mass/Vol] 6.8 g/dL Normal 6.4-8.3 [facility] Comment on above: Performed By: #### C HM7, MGO, HFP ####[facility] (DEFAULT)[address] [place] [address] Albumin [Mass/Vol] 3.3 g/dL Low 3.5 - 5.0 g/dL [facility] ALP [Catalytic activity/Vol] 112 U/L 32 - 126 U/L [facility] ALT [Catalytic activity/Vol] 21 U/L 10 - 52 U/L [facility] AST [Catalytic activity/Vol] 29 U/L 10 - 39 U/L [facility] Bilirubin [Mass/Vol] 1.0 mg/dL NINF - 1.5 mg/dL [facility] Bilirubin.direct [Mass/Vol] 0.2 mg/dL NINF - 0.3 mg/dL [facility] Protein [Mass/Vol] 6.8 g/dL 6.4 - 8.3 g/dL [facility] L. pneumophila 1 Ag IA Ql (U )Ordered By: Carolin Miles on 09-01-2023 Interpretation and review of laboratory results Normal [facility] LEGIONELLA URINARY AGOrdered By: Carolin Miles on 09-01-2023 L. pneumophila 1 Ag IA Ql (U) Negative Negative [facility] MAGNESIUMon 09-01-2023 Magnesium [Mass/Vol] 1.6 mg/dL Normal 1.6-2.6 [facility] Comment on above: Performed By: #### G YASMINE #### [facility] (DEFAULT) [address] [place] [address] Interpretation and review of laboratory results Normal [facility] Magnesium [Mass/Vol] 1.6 mg/dL 1.6 - 2 .6 mg/dL [facility] No Panel Informationon 09-01 Interpretation and review of laboratory results Abnormal [facility] PARVOVIRUS (B19) DNA, PCR, B LOODon 09-01-2023 PARVOVIRUS B19 BY RAPID PCR Not detected Normal Not Detected [facility] Comment on above: Result Comment: The primers/probe used in this assay will detect parvovirus B19 and V9 (genotypes 1 # 3) but may not detect parvovirus genotype 2. The majority of circulating Parvovirus B19 strains in the [facility] are genotype 1. Genotype 2 is not believed to circulate widely in the [place], but has been associated with similar clinical features as genotype 1. Genotype 3 is most prevalent in some countries. This test was developed and its analytical performance characteristics have been determined by [facility] [place]. It has not been cleared or approved by the FDA. This assay has been validated pursuant to the CLIA regulations and is used for clinical purposes. Test Performed at: [facility] [address] [place], [place] Ramon Benavides M.D., Ph.D.,Director of Laboratories Performed By: #### Vale UNDERWOOD #### [facility] (DEFAULT) [address] [place] [address] NM SPEC SOURCE Whole Blood Normal [facility] Comment on above: Performed By: #### Vale UNDERWOOD #### [facility] (DEFAULT) [address] [place] [address] ASPERGILLUS (GALACTOMANNAN), ANTIGENon 08-31-2023 Aspergillus Antigen <0.500 Normal <0.5 [facility] Comment on above: Result Comment: ADDITIONAL INFORMATION This is a qualitative test and the resulted index value is not indicative of disease severity. Serial testing is recommended for patients at high risk for invasive aspergillosis. This assay was performed using the FDA-cleared [employer] Delo Platelia Aspergillus Galactomannan EIA. Test Performed by: [address] [address] Machine Fixer: Rosendo Bose M.D. Ph.D.; CLIA# [id number] Performed By: #### Y PNRP #### [facility] (DEFAULT) [address] [place] [address] CBC,PLATELETSon 08-31-2023 Hematocrit (Bld) [Volume fraction] 39.4 % Low 39.6-48.8 [facility] Comment on above: Performed By: #### T ACRO #### [facility] (DEFAULT) [address] [place] [address] Hemoglobin (Bld) [Mass/Vol] 12.8 g/dL Low 13.4-16.8 [facility] Comment on above: Performed By: #### T ACRO #### [facility] (DEFAULT) [address] [place] [address] MCV (RBC) [Entitic vol] 85.1 fL Normal 79.0-94.5 [facility] Comment on above: Performed By: #### T ACRO #### [facility] (DEFAULT) [address] [place] [address] Mean Cell Hgb 27.6 pg Normal 26.1-33.3 [facility] Comment on above: Performed By: #### T ACRO #### [facility] (DEFAULT) [address] [place] [address] 89080 Mean Cell Hgb Conc 32.5 g/dL Normal 31.9-36.5 [facility] Comment on above: Performed By: #### T ACRO #### [facility] (DEFAULT) [address] [place] [address] Platelet mean volume (Bld) [Entitic vol] 9.6 fL Normal 8.7-12.3 [facility] Comment on above: Performed By: #### T ACRO #### [facility] (DEFAULT) [address] [address] Platelets (Bld) [#/Vol] 228 10*3/uL Normal 146-337 [facility] Comment on above: Performed By: #### T ACRO #### [facility] (DEFAULT) [address] [place] [address] RBC (Bld) [#/Vol] 4.63 10*6/uL Normal 4.38-5.83 [facility] Comment on above: Performed By: #### T ACRO #### [facility] (DEFAULT) [address] [place] [address] RBC Distribution 13.3 % Normal 10.9-14.3 [facility] Comment on above: Performed By: #### T ACRO #### [facility] (DEFAULT) [address] [place] [address] WBC (Bld) [#/Vol] 4.77 10*3/uL Normal 3.73-10.10 [facility] Comment on above: Performed By: #### T ACRO #### [facility] (DEFAULT) [address] [place] [address] Erythrocyte distribution width (RBC) [Ratio] 13.3 % 10.9 - 14.3 % [facility] Hematocrit (Bld) [Volume fraction] 39.4 % Low 39.6 - 48.8 % [facility] Hemoglobin (Bld) [Mass/Vol] 12.8 g/dL Low 13.4 - 16.8 g/dL [facility] Interpretation and review of laboratory results Abnormal [facility] MCH (RBC) [Entitic mass] 27.6 pg 26.1 - 33.3 pg [facility] MCHC (RBC) [Mass/Vol] 32.5 g/dL 31.9 - 36.5 g/dL [facility] MCV (RBC) [Entitic vol] 85.1 fL 79.0 - 94.5 fL [facility] Platelet mean volume (Bld) [Entitic vol] 9.6 fL 8.7 - 12.3 fL [facility] Platelets (Bld) [#/Vol] 228 10*3/uL 146 - 337 K/uL [facility] RBC (Bld) [#/Vol] 4.63 10*6/uL [facility] WBC (Bld) [#/Vol] 4.77 10*3/uL 3.73 - 10. 10 K/uL [facility] CHEM 7 (LYTES,BUN,CREA,GLUC) on 08-31-2023 Anion gap [Moles/Vol] 13 mmol/L Normal 7-17 [facility] Comment on above: Performed By: #### T ACRO #### [facility] (DEFAULT) [address] [place] [address] Chloride [Moles/Vol] 102 mmol/L Normal 98-108 [facility] Comment on above: Performed By: #### T ACRO #### [facility] (DEFAULT) [address] [place] [address] CO2 [Moles/Vol] 23 mmol/L Normal 21-31 [facility] Comment on above: Performed By: #### T ACRO #### [facility] (DEFAULT) [address] [place] [address] Creatinine [Mass/Vol] 1.37 mg/dL High 0.70-1.30 [facility] Comment on above: Performed By: #### T ACRO #### [facility] (DEFAULT) [address] [place] [address] GFR/1.73 sq M.predicted among non-blacks MDRD (S/P/Bld) [Vol rate/Area] 62 mL/min/{1.73_m2} Normal >=60 [facility] Comment on above: Result Comment: Repo rted eGFR is based on the CKD-EPI 2020 equation using creatinine, age, and sex. Performed By: #### T ACRO #### [facility] (DEFAULT) [address] [place] [address] Glucose [Mass/Vol] 112 mg/dL High 70-99 [facility] Comment on above: Performed By: #### T ACRO #### [facility] (DEFAULT) [address] [place] [address] Osmolality [Osmolality] 284 mosm/kg Normal 278-305 [facility] Comment on above: Performed By: #### T ACRO #### [facility] (DEFAULT) [address] [place] [address] Potassium [Moles/Vol] 4.4 mmol/L Normal 3.5-5.0 [facility] Comment on above: Performed By: #### T ACRO #### [facility] (DEFAULT) [address] [place] [address] Sodium [Moles/Vol] 134 mmol/L Low 135-145 [facility] Comment on above: Performed By: #### T ACRO #### [facility] (DEFAULT) [address] [place] [address] Urea nitrogen [Mass/Vol] 16 mg/dL Normal 7-25 [facility] Comment on above: Performed By: #### T ACRO #### [facility] (DEFAULT) [address] [place] [address] Urea nitrogen/Creatinine [Mass ratio] 12 mg/mg Normal [facility] Comment on above: Performed By: #### T ACRO #### [facility] (DEFAULT) [address] [place] [address] Anion gap [Moles/Vol] 13 mmol/L 7 - 17 mmol/L [facility] Chloride [Moles/Vol] 102 mmol/L 98 - 10 8 mmol/L [facility] CO2 [Moles/Vol] 23 mmol/L 21 - 31 mmol/L [facility] Creatinine [Mass/Vol] 1.37 mg/dL High 0.70 - 1.30 mg/dL [facility] eGFR, CKD-EPI, Male 62 - [facility]F [facility] Glucose [Mass/Vol] 112 mg/dL High 70 - 99 mg/dL [facility] Osmolality Calc [Osmolality] 284 [facility] Potassium [Moles/Vol] 4.4 mmol/L 3.5 - 5.0 mmol/L [facility] Sodium [Moles/Vol] 134 mmol/L Low 135 - 145 mmol/L [facility] Urea nitrogen [Mass/Vol] 16 mg/dL 7 - 25 mg/[facility] Urea nitrogen/Creatinine [Mass ratio] 12 mg/mg [facility] ABDOMEN/PELVIS WITHOUT CO NTRASTon 08-31-2023 [...] Adrenals: Adrenal glands are unremarkable. Kidneys: The [place] kidneys are atrophic. No stones or hydronephrosis. No focal lesions noted within the [place] kidneys on this noncontrast study. Renovascular calcifications [...] have reviewed and approved this report. Normal [facility] CT Abdomen and Pelvis WO con traston 08-31-2023 RADIOLOGY RADIOLOGY [facility] Radiology Study observation (narrative) [facility] CT Abdomen and Pelvis WO con trastOrdered By: Chavez Larkin on 08-31-2023 [facility] Work Phone: CT CHEST WITHOUT CONTRASTon 08-31-2023 [...] likely reactive. 4. Coronary artery disease. Normal [facility] CT Chest WO contraston 08-31 RADIOLOGY RADIOLOGY [facility] Radiology Study observation (narrative) [facility] CT Chest WO contrastOrdered By: Daisha Patterson on 08-31-2023 [facility] Work Phone: FERRITINon 08-31-2023 Ferritin [Mass/Vol] 409.0 ng/mL High 10.5 - 3 07.3 ng/mL [facility] Interpretation and review of laboratory results Abnormal [facility] Ferritin [Mass/Vol] 409.0 ng/mL High 10.5-307.3 [facility] Comment on above: Performed By: #### T ACRO #### [facility] (DEFAULT) [address] [place] [address] HEPATIC FUNCTION PANELon Albumin [Mass/Vol] 3.3 g/dL Low 3.5-5.0 [facility] Comment on above: Performed By: #### T ACRO #### [facility] (DEFAULT) [address] [place] [address] ALP [Catalytic activity/Vol] 113 U/L Normal 32-126 [facility] Comment on above: Performed By: #### T ACRO #### [facility] (DEFAULT) [address] [place] [address] 219[address] ALT [Catalytic activity/Vol] 25 U/L Normal 10-52 [facility] Comment on above: Performed By: #### T ACRO #### [facility] (DEFAULT) [address] [place] [address] AST [Catalytic activity/Vol] 31 U/L Normal 10-39 [facility] Comment on above: Performed By: #### T ACRO #### [facility] (DEFAULT) [address] [place] [address] Bilirubin [Mass/Vol] 1.1 mg/dL Normal <1.5 [facility] Comment on above: Performed By: #### T ACRO #### [facility] (DEFAULT) [address] [place] [address] Bilirubin.indirect [Mass/Vol] 0.3 mg/dL High <0.3 [facility] Comment on above: Performed By: #### T ACRO #### [facility] (DEFAULT) [address] [place] [address] Protein [Mass/Vol] 7.0 g/dL Normal 6.4-8.3 [facility] Comment on above: Performed By: #### T ACRO #### [facility] (DEFAULT) [address] [place] [address] Albumin [Mass/Vol] 3.3 g/dL Low 3.5 - 5.0 g/dL [facility] ALP [Catalytic activity/Vol] 113 U/L 32 - 126 U/L [facility] ALT [Catalytic activity/Vol] 25 U/L 10 - 52 U/L [facility] AST [Catalytic activity/Vol] 31 U/L 10 - 39 U/L [facility] Bilirubin [Mass/Vol] 1.1 mg/dL NINF - 1.5 mg/dL [facility] Bilirubin.direct [Mass/Vol] 0.3 mg/dL High NINF - 0.3 mg/dL [facility] Protein [Mass/Vol] 7.0 g/dL 6.4 - 8.3 g/dL [facility] LEGIONELLA URINARY AGon Legionella Urinary Antigen Negative Normal Negative [facility] Comment on above: Performed By: #### T ACRO #### [facility] (DEFAULT) [address] [place] [address] MAGNESIUMon 08-31-2023 Magnesium [Mass/Vol] 1.7 mg/dL Normal 1.6-2.6 [facility] Comment on above: Performed By: #### T ACRO #### [facility] (DEFAULT) [address] [place] [address] Interpretation and review of laboratory results Normal [facility] Magnesium [Mass/Vol] 1.7 mg/dL 1.6 - 2 .6 mg/dL [facility] No Panel Informationon 08-31 Interpretation and review of laboratory results Abnormal [facility] PROCALCITONINon 08-31-2023 Interpretation and review of laboratory results Normal [facility] Procalcitonin [Mass/Vol] 0.23 ng/mL NINF - 0.50 ng/mL [facility] Procalcitonin 0.23 ng/mL Normal <0.50 [facility] Comment on above: Result Comment: Proc [...] and trend procalcitonin in various clinical settings. [email or web address] Two common cutoffs associated with bacterial infections are as follows. Respiratory tract infections: >0.25 ng/mL Sepsis/septic shock: >0.5 ng/mL Procalcitonin should not be used alone as a diagnostic tool, however. All procalcitonin results should be interpreted in association with the patients clinical condition and all laboratory findings. Performed By: #### T ACRO #### [facility] (DEFAULT) [address] [place] [address] TACROLIMUS LEVEL, TROUGH (NM E DRUG LEVEL)Ordered By: Yanira Marcum on 08-31-2023 Interpretation and review of laboratory results Normal [facility] Tacrolimus (Bld) [Mass/Vol] 5.9 ng/mL [facility] TACROLIMUS LEVEL, TROUGH (NM E DRUG LEVEL)on 08-31-2023 Tacrolimus, Trough 5.9 ng/mL Normal [facility] ow Transplant: 4.0-12.0, Therapeutic: 5.0-15.0 [facility] Comment on above: Order Comment: Pleas e draw at specified interval PRIOR to dose. Do not hold dose to wait for level. Specimens batched twice per day, (M-F) and once per day weekendsMethod performed is a chemiluminescent microparticle immunoasssay on the [employer] i2000.The range is based on experience at [facility] and users should be aware that target concentrations vary widely depending on concomitant therapy, time post-transplant, and desired degree of immunosuppression. Performed By: #### T ACRO ####[facility] (DEFAULT)[address] [place] [address]67 URINE CULTUREOrdered By: Jorge crowe Held on 08-31-2023 Bacteria identified Cx Nom (Unsp spec) No Growth [facility] DARYL AURIS SCREEN BY PCRO rdered By: Mynor Alejandro on 08-30-2023 Daryl auris Screen by PCR Not detected Not Detected [facility] Interpretation and review of laboratory results Normal [facility] CBC,PLATELETSon 08-30-2023 Hematocrit (Bld) [Volume fraction] 41.3 % Normal 39.6-48.8 [facility] Comment on above: Performed By: #### G YASMINE #### [facility] (DEFAULT) [address] [place] [address]79 Hemoglobin (Bld) [Mass/Vol] 13.2 g/dL Low 13.4-16.8 [facility] Comment on above: Performed By: #### G YASMINE #### [facility] (DEFAULT) [address] [place] [address] 76138 MCV (RBC) [Entitic vol] 85.5 fL Normal 79.0-94.5 [facility] Comment on above: Performed By: #### G YASMINE #### [facility] (DEFAULT) [address] [place] [address] 89072 Mean Cell Hgb 27.3 pg Normal 26.1-33.3 [facility] Comment on above: Performed By: #### G YASMINE #### [facility] (DEFAULT) [address] [place] [address] 59613 Mean Cell Hgb Conc 32.0 g/dL Normal 31.9-36.5 [facility] Comment on above: Performed By: #### Vale UNDERWOOD #### [facility] (DEFAULT) [address] [place] [address] 13646 Platelet mean volume (Bld) [Entitic vol] 9.2 fL Normal 8.7-12.3 [facility] Comment on above: Performed By: #### Vale UNDERWOOD #### [facility] (DEFAULT) [address] [place] [address] 91802 Platelets (Bld) [#/Vol] 235 10*3/uL Normal 146-337 [facility] Comment on above: Performed By: #### Vale UNDERWOOD #### [facility] (DEFAULT) [address] [place] [address] 82483 RBC (Bld) [#/Vol] 4.83 10*6/uL Normal 4.38-5.83 [facility] Comment on above: Performed By: ###Walter UNDERWOOD #### [facility] (DEFAULT) [address] [place] [address] 92420 RBC Distribution 13.3 % Normal 10.9-14.3 [facility] Comment on above: Performed By: ###Walter UNDERWOOD #### [facility] (DEFAULT) [address] [place] [address] 67591 WBC (Bld) [#/Vol] 4.96 10*3/uL Normal 3.73-10.10 [facility] Comment on above: Performed By: ###Walter UNDERWOOD #### [facility] (DEFAULT) [address] [place] [address] 69209 Erythrocyte distribution width (RBC) [Ratio] 13.3 % 10.9 - 14.3 % [facility] Hematocrit (Bld) [Volume fraction] 41.3 % 39.6 - 48.8 % [facility] Hemoglobin (Bld) [Mass/Vol] 13.2 g/dL Low 13.4 - 16.8 g/dL [facility] Interpretation and review of laboratory results Abnormal [facility] MCH (RBC) [Entitic mass] 27.3 pg 26.1 - 33.3 pg [facility] MCHC (RBC) [Mass/Vol] 32.0 g/dL 31.9 - 36.5 g/dL [facility] MCV (RBC) [Entitic vol] 85.5 fL 79.0 - 94.5 fL [facility] Platelet mean volume (Bld) [Entitic vol] 9.2 fL 8.7 - 12.3 fL [facility] Platelets (Bld) [#/Vol] 235 10*3/uL 146 - 337 K/uL [facility] RBC (Bld) [#/Vol] 4.83 10*6/uL [facility] WBC (Bld) [#/Vol] 4.96 10*3/uL 3.73 - 10. 10 K/uL [facility] CHEM 7 (LYTES,BUN,CREA,GLUC) on 08-30-2023 Anion gap [Moles/Vol] 14 mmol/L Normal 7-17 [facility] Comment on above: Performed By: #### T ACRO #### [facility] (DEFAULT) [address] [place] [address] 18602 Chloride [Moles/Vol] 102 mmol/L Normal 98-108 [facility] Comment on above: Performed By: #### T ACRO #### [facility] (DEFAULT) [address] [place] [address] 53301 CO2 [Moles/Vol] 20 mmol/L Low 21-31 [facility] Comment on above: Performed By: #### T ACRO #### [facility] (DEFAULT) [address] [place] [address] 74162 Creatinine [Mass/Vol] 1.56 mg/dL High 0.70-1.30 [facility] Comment on above: Performed By: #### T ACRO #### [facility] (DEFAULT) [address] [place] [address] 10943 GFR/1.73 sq M.predicted among non-blacks MDRD (S/P/Bld) [Vol rate/Area] 53 mL/min/{1.73_m2} Low >=60 [facility] Comment on above: Result Comment: Repo rted eGFR is based on the CKD-EPI 2020 equation using creatinine, age, and sex. Performed By: #### T ACRO #### [facility] (DEFAULT) [address] [place] [address] 73577 Glucose [Mass/Vol] 123 mg/dL High 70-99 [facility] Comment on above: Performed By: #### T ACRO #### [facility] (DEFAULT) [address] [place] [address] 70918 Osmolality [Osmolality] 281 mosm/kg Normal 278-305 [facility] Comment on above: Performed By: #### T ACRO #### [facility] (DEFAULT) [address] [place] [address] 32833 Potassium [Moles/Vol] 4.3 mmol/L Normal 3.5-5.0 [facility] Comment on above: Performed By: #### T ACRO #### [facility] (DEFAULT) [address] [place] [address] 82171 Sodium [Moles/Vol] 132 mmol/L Low 135-145 [facility] Comment on above: Performed By: #### T ACRO #### [facility] (DEFAULT) [address] [place] [address] 68378 Urea nitrogen [Mass/Vol] 16 mg/dL Normal 7-25 [facility] Comment on above: Performed By: #### T ACRO #### [facility] (DEFAULT) [address] [place] [address] 61072 Urea nitrogen/Creatinine [Mass ratio] 10 mg/mg Normal [facility] Comment on above: Performed By: #### T ACRO #### [facility] (DEFAULT) [address] [place] [address] 18240 Anion gap [Moles/Vol] 14 mmol/L 7 - 17 mmol/L [facility] Chloride [Moles/Vol] 102 mmol/L 98 - 10 8 mmol/L [facility] CO2 [Moles/Vol] 20 mmol/L Low 21 - 31 mmol/L [facility] Creatinine [Mass/Vol] 1.56 mg/dL High 0.70 - 1.30 mg/dL [facility] eGFR, CKD-EPI, Male 54 Low - PINF [facility] Glucose [Mass/Vol] 123 mg/dL High 70 - 99 mg/dL [facility] Osmolality Calc [Osmolality] 281 [facility] Potassium [Moles/Vol] 4.3 mmol/L 3.5 - 5.0 mmol/L [facility] Sodium [Moles/Vol] 132 mmol/L Low 135 - 145 mmol/L [facility] Urea nitrogen [Mass/Vol] 16 mg/dL 7 - 25 mg/dL [facility] Urea nitrogen/Creatinine [Mass ratio] 10 mg/mg [facility] EXTRA MICROon 08-30-2023 [facility] HEPATIC FUNCTION PANELon Albumin [Mass/Vol] 3.7 g/dL Normal 3.5-5.0 [facility] Comment on above: Performed By: #### T ACRO #### [facility] (DEFAULT) [address] [place] [address] 88584 ALP [Catalytic activity/Vol] 115 U/L Normal 32-126 [facility] [facility] Comment on above: Performed By: #### T ACRO #### [facility] (DEFAULT) [address] [place] [address] ALT [Catalytic activity/Vol] 22 U/L Normal 10-52 [facility] Comment on above: Performed By: #### T ACRO #### [facility] (DEFAULT) [address] [place] [address] AST [Catalytic activity/Vol] 34 U/L Normal 10-39 [facility] Comment on above: Performed By: #### T ACRO #### [facility] (DEFAULT) [address] [place] [address] 38248 Bilirubin [Mass/Vol] 1.2 mg/dL Normal <1.5 [facility] Comment on above: Performed By: #### T ACRO #### [facility] (DEFAULT) [address] [place] [address] 21582 Bilirubin.indirect [Mass/Vol] 0.3 mg/dL High <0.3 [facility] Comment on above: Performed By: #### T ACRO #### [facility] (DEFAULT) [address] [place] [address] 48462 Protein [Mass/Vol] 7.7 g/dL Normal 6.4-8.3 [facility] Comment on above: Performed By: #### T ACRO #### [facility] (DEFAULT) [address] [place] [address] 60483 Albumin [Mass/Vol] 3.7 g/dL 3.5 - 5.0 g/dL [facility] ALP [Catalytic activity/Vol] 115 U/L 32 - 126 U/L [facility] ALT [Catalytic activity/Vol] 22 U/L 10 - 52 U/L [facility] AST [Catalytic activity/Vol] 34 U/L 10 - 39 U/L [facility] Bilirubin [Mass/Vol] 1.2 mg/dL [facility] - 1.[facility] mg/dL [facility] Bilirubin.direct [Mass/Vol] 0.3 mg/dL High NINF - 0.3 mg/dL [facility] Protein [Mass/Vol] 7.7 g/dL 6.4 - 8.3 g/dL [facility] MAGNESIUMon 08-30-2023 Magnesium [Mass/Vol] 1.8 mg/dL Normal 1.6-2.6 [facility] Comment on above: Performed By: #### T ACRO #### [facility] (DEFAULT) [address] [place] [address] Interpretation and review of laboratory results Normal [facility] Magnesium [Mass/Vol] 1.8 mg/dL 1.6 - 2 .6 mg/dL [facility] No Panel Informationon 08-30 Interpretation and review of laboratory results Abnormal [facility] CBC,PLATELETSon 08-29-2023 Hematocrit (Bld) [Volume fraction] 37.6 % Low 39.6-48.8 [facility] Comment on above: Performed By: #### H EMOGC #### [facility] (DEFAULT) [address] [place] [address] 50816 Hemoglobin (Bld) [Mass/Vol] 12.2 g/dL Low 13.4-16.8 [facility] Comment on above: Performed By: #### H EMOGC #### [facility] (DEFAULT) [address] [place] [address] 55336 MCV (RBC) [Entitic vol] 85.1 fL Normal 79.0-94.5 [facility] Comment on above: Performed By: #### H EMOGC #### [facility] (DEFAULT) [address] [place] [address] 73956 Mean Cell Hgb 27.6 pg Normal 26.1-33.3 [facility] Comment on above: Performed By: #### H EMOGC #### [facility] (DEFAULT) [address] [place] [address] 35082 Mean Cell Hgb Conc 32.4 g/dL Normal 31.9-36.5 [facility] Comment on above: Performed By: #### H EMOGC #### [facility] (DEFAULT) [address] [place] [address] 57788 Platelet mean volume (Bld) [Entitic vol] 9.4 fL Normal 8.7-12.3 [facility] Comment on above: Performed By: #### H EMOGC #### [facility] (DEFAULT) [address] [place] [address] 64652 Platelets (Bld) [#/Vol] 233 10*3/uL Normal 146-337 [facility] Comment on above: Performed By: #### H [facility] #### [facility] (DEFAULT) [address] [place] [address] 06509 RBC (Bld) [#/Vol] 4.42 10*6/uL Normal 4.38-5.83 [facility] Comment on above: Performed By: #### H EMO #### [facility] (DEFAULT) [address] [place] [address] 42305 RBC Distribution 13.4 % Normal 10.9-14.3 [facility] Comment on above: Performed By: #### H EMO #### [facility] (DEFAULT) [address] [place] [address] 05603 WBC (Bld) [#/Vol] 4.92 10*3/uL Normal 3.73-10.10 [facility] Comment on above: Performed By: #### H [facility] #### [facility] (DEFAULT) [address] [place] [address] 24241 Erythrocyte distribution width (RBC) [Ratio] 13.4 % 10.9 - 14.3 % [facility] Hematocrit (Bld) [Volume fraction] 37.6 % Low 39.6 - 48.8 % [facility] Hemoglobin (Bld) [Mass/Vol] 12.2 g/dL Low 13.4 - 16.8 g/dL [facility] Interpretation and review of laboratory results Abnormal [facility] MCH (RBC) [Entitic mass] 27.6 pg 26.1 - 33.3 pg [facility] MCHC (RBC) [Mass/Vol] 32.4 g/dL 31.9 - 36.5 g/dL [facility] MCV (RBC) [Entitic vol] 85.1 fL 79.0 - 94.5 fL [facility] Platelet mean volume (Bld) [Entitic vol] 9.4 fL 8.7 - 12.3 fL [facility] Platelets (Bld) [#/Vol] 233 10*3/uL 146 - 337 K/uL [facility] RBC (Bld) [#/Vol] 4.42 10*6/uL [facility] WBC (Bld) [#/Vol] 4.92 10*3/uL 3.73 - 10. 10 K/uL [facility] CHEM 7 (LYTES,BUN,CREA,GLUC) on 08-29-2023 Anion gap [Moles/Vol] 13 mmol/L Normal 7-17 [facility] Comment on above: Performed By: #### G YASMINE #### [facility] (DEFAULT) [address] [address] Chloride [Moles/Vol] 105 mmol/L Normal 98-108 [facility] Comment on above: Performed By: #### G YASMINE #### [facility] (DEFAULT) [address] [place] [address] 46239 CO2 [Moles/Vol] 20 mmol/L Low 21-31 [facility] Comment on above: Performed By: #### G YASMINE #### [facility] (DEFAULT) [address] [place] [address] 94904 Creatinine [Mass/Vol] 1.55 mg/dL High 0.70-1.30 [facility] Comment on above: Performed By: #### G YASMINE #### [facility] (DEFAULT) [address] [place] [address] 97890 GFR/1.73 sq M.predicted among non-blacks MDRD (S/P/Bld) [Vol rate/Area] 54 mL/min/{1.73_m2} Low >=60 [facility] Comment on above: Result Comment: Repo rted eGFR is based on the CKD-EPI 2020 equation using creatinine, age, and sex. Performed By: #### G YASMINE #### [facility] (DEFAULT) [address] [place] [address] 12014 Glucose [Mass/Vol] 108 mg/dL High 70-99 [facility] Comment on above: Performed By: #### G YASMINE #### [facility] (DEFAULT) [address] [place] [address] 73241 Osmolality [Osmolality] 283 mosm/kg Normal 278-305 [facility] Comment on above: Performed By: #### Vale UNDERWOOD #### [facility] (DEFAULT) [address] [place] [address] 75746 Potassium [Moles/Vol] 4.5 mmol/L Normal 3.5-5.0 [facility] Comment on above: Performed By: #### Vale UNDERWOOD #### [facility] (DEFAULT) [address] [place] [address] 57543 Sodium [Moles/Vol] 133 mmol/L Low 135-145 [facility] Comment on above: Performed By: #### Vale UNDERWOOD #### [facility] (DEFAULT) [address] [place] [address] 38010 Urea nitrogen [Mass/Vol] 19 mg/dL Normal 7-25 [facility] Comment on above: Performed By: #### Vale UNDERWOOD #### [facility] (DEFAULT) [address] [place] [address] 09557 Urea nitrogen/Creatinine [Mass ratio] 12 mg/mg Normal [facility] Comment on above: Performed By: #### Vale UNDERWOOD #### [facility] (DEFAULT) [address] [place] [address] 66458 Anion gap [Moles/Vol] 13 mmol/L 7 - 17 mmol/L [facility] Chloride [Moles/Vol] 105 mmol/L 98 - 10 8 mmol/L [facility] CO2 [Moles/Vol] 20 mmol/L Low 21 - 31 mmol/L [facility] Creatinine [Mass/Vol] 1.55 mg/dL High 0.70 - 1.30 mg/dL [facility] eGFR, CKD-EPI, Male 55 Low - [facility] Glucose [Mass/Vol] 108 mg/dL High 70 - 99 mg/dL [facility] Osmolality Calc [Osmolality] 283 [facility] Potassium [Moles/Vol] 4.5 mmol/L 3.5 - 5.0 mmol/L [facility] Sodium [Moles/Vol] 133 mmol/L Low 135 - 145 mmol/L [facility] Urea nitrogen [Mass/Vol] 19 mg/dL 7 - 25 mg/dL [facility] Urea nitrogen/Creatinine [Mass ratio] 12 mg/mg [facility] GGTon 08-29-2023 Gamma glutamyl transferase [Catalytic activity/Vol] 64 U/L 8 - 64 U/L [facility] Interpretation and review of laboratory results Normal [facility] Gamma glutamyl transferase [Catalytic activity/Vol] 64 U/L Normal 8-64 [facility] Comment on above: Performed By: #### Vale UNDERWOOD #### [facility] (DEFAULT) [address] [place] [address] 34809 HEPATIC FUNCTION PANELon Albumin [Mass/Vol] 3.3 g/dL Low 3.5-5.0 [facility] Comment on above: Performed By: ###Walter UNDERWOOD #### [facility] (DEFAULT) [address] [place] [address] 42218 ALP [Catalytic activity/Vol] 103 U/L Normal 32-126 [facility] Comment on above: Performed By: #### Vale UNDERWOOD #### [facility] (DEFAULT) [address] [place] [address] 08884 ALT [Catalytic activity/Vol] 18 U/L Normal 10-52 [facility] Comment on above: Performed By: #### Vale UNDERWOOD #### [facility] (DEFAULT) [address] [place] [address] 27114 AST [Catalytic activity/Vol] 27 U/L Normal 10-39 [facility] Comment on above: Performed By: #### Vale UNDERWOOD #### [facility] (DEFAULT) [address] [place] [address] 47265 Bilirubin [Mass/Vol] 1.1 mg/dL Normal <1.5 [facility] Comment on above: Performed By: #### G YASMINE #### [facility] (DEFAULT) [address] [place] [address] 45171 Bilirubin.indirect [Mass/Vol] 0.3 mg/dL High <0.3 [facility] Comment on above: Performed By: #### G YASMINE #### [facility] (DEFAULT) [address] [place] [address] 48193 Protein [Mass/Vol] 6.8 g/dL Normal 6.4-8.3 [facility] Comment on above: Performed By: #### G YASMINE #### [facility] (DEFAULT) [address] [place] [address] 55508 Albumin [Mass/Vol] 3.3 g/dL Low 3.5 - 5.0 g/dL [facility] ALP [Catalytic activity/Vol] 103 U/L 32 - 126 U/L [facility] ALT [Catalytic activity/Vol] 18 U/L 10 - 52 U/L [facility] AST [Catalytic activity/Vol] 27 U/L 10 - 39 U/L [facility] Bilirubin [Mass/Vol] 1.1 mg/dL [facility] - 1.[facility] mg/dL [facility] Bilirubin.direct [Mass/Vol] 0.3 mg/dL High NINF - 0.3 mg/dL [facility] Protein [Mass/Vol] 6.8 g/dL 6.4 - 8.3 g/dL [facility] HISTOPLASMA AND BLASTOMYCES ANTIGEN, ENZYME IMMUNOASSAY, SERMon 08-29-2023 Histoplasma/Blastomyc es Ag Result Detected Invalid Interpretation Code Not Detected [facility] Comment on above: Result Comment: Anti gen from Histoplasma or Blastomyces (unable to differentiate) detected. Result should be correlated with clinical presentation, exposure history, and other diagnostic procedures, including culture, serology, histopathology, and/or radiographic findings, to aid in the differentiation between histoplasmosis and blastomycosis. CRITICAL RESULT Performed By: #### Y PNRP #### [facility] (DEFAULT) [address] [address] Histoplasma/Blastomyc es Ag Value 5.3 ng/mL Normal [facility] Comment on above: Result Comment: ADDITIONAL INFORMATION This test was developed and its performance characteristics determined by [facility] in a manner consistent with CLIA requirements. This test has not been cleared or approved by the U.S. Food and Drug Administration. Test Performed by: [facility] [place] [address] Machine Fixer: Rosendo Bose M.D. Ph.D.; CLIA# [id number] Performed By: #### Y PNRP #### [facility] (DEFAULT) [address] [place] [address] 88968 HISTOPLASMA ANTIGEN,URINEon 08-29-2023 HISTOPLASM AG, URINE Not detected Normal Not Detected [facility] Comment on above: Result Comment: No H istoplasma antigen detected. False negative results may occur. Repeat testing on a new specimen should be considered if clinically indicated. Performed By: #### T ACRO #### [facility] ([facility] [address] [place] [address] 68665 Histoplasma Ag Value Not detected Normal [facility] Comment on above: Result Comment: ADDITIONAL INFORMATION This test has been modified from the senior qa tester's instructions. Its performance characteristics were determined by [facility] in a manner consistent with CLIA requirements. This test has not been cleared or approved by the U.S. Food and Drug Administration. Test Performed by: [facility] [place] [address] Machine Fixer: Rosendo Bose M.D. Ph.D.; CLIA# [id number] Performed By: #### T ACRO #### [facility] (DEFAULT) [address] [place] [address] 75426 MAGNESIUMon 08-29-2023 Magnesium [Mass/Vol] 1.7 mg/dL Normal 1.6-2.6 [facility] Comment on above: Performed By: #### G YASMINE #### [facility] (DEFAULT) [address] [place] [address] 43623 Interpretation and review of laboratory results Normal [facility] Magnesium [Mass/Vol] 1.7 mg/dL 1.6 - 2 .6 mg/dL [facility] No Panel Informationon 08-29 Interpretation and review of laboratory results Abnormal [facility] PT,INR,PTTon 08-29-2023 aPTT Coag (Bld) [Time] 29.3 s Normal 24.0-34.3 [facility] Comment on above: Performed By: #### L EGN #### [facility] (DEFAULT) [address] [place] [address] 27738 INR Coag (PPP) [Relative time] 1.1 {INR} Normal 0.9-1.1 [facility] Comment on above: Performed By: #### L EGN #### [facility] (DEFAULT) [address] [place] [address] 82701 PT Coag (PPP) [Time] 13.8 s Normal 11.9-14.2 [facility] Comment on above: Performed By: #### L EGN #### [facility] (DEFAULT) [address] [place] [address] 83193 aPTT Coag (PPP) [Time] 29.3 s [facility] INR Coag (Bld) [Relative time] 1.1 {INR} 0.9 - 1.1 [facility] Interpretation and review of laboratory results Normal [facility] PT Coag (PPP) [Time] 13.8 s [facility] Portable XR Chest Viewson RADIOLOGY RADIOLOGY [facility] Portable XR Chest ViewsOrder ed By: Gerald Baer on 08-29-2023 [facility] Work Phone: TACROLIMUS LEVEL, TROUGH (NM E DRUG LEVEL)on 08-29-2023 Interpretation and review of laboratory results Normal [facility] Tacrolimus (Bld) [Mass/Vol] 8.9 ng/mL [facility] Tacrolimus, Trough 8.9 ng/mL Normal [facility] Transplant: 4.0-12.0, Therapeutic: 5.0-15.0 [facility] Comment on above: Order Comment: Pleas e draw at specified interval PRIOR to dose. Do not hold dose to wait for level. Specimens batched twice per day, (M-F) and once per day weekendsMethod performed is a chemiluminescent microparticle immunoasssay on the [employer] i2000.The range is based on experience at [facility] and users should be aware that target concentrations vary widely depending on concomitant therapy, time post-transplant, and desired degree of immunosuppression. Performed By: #### H EMOGC #### [facility] (DEFAULT) [address] [address] Tacrolimus, Trough 8.7 ng/mL Normal [facility] Transplant: 4.0-12.0, Therapeutic: 5.0-15.0 [facility] Comment on above: Order Comment: Pleas e draw at specified interval PRIOR to dose. Do not hold dose to wait for level. Specimens batched twice per day, (M-F) and once per day weekends Method performed is a chemiluminescent microparticle immunoasssay on the [employer] i2000. The range is based on experience at [facility] and users should be aware that target concentrations vary widely depending on concomitant therapy, time post-transplant, and desired degree of immunosuppression. Performed By: #### T ACRO #### [facility] (DEFAULT) [address] [place] [address] 38814 TACROLIMUS LEVEL, TROUGH (NM E DRUG LEVEL)Ordered By: Roxanne Louie on 08-29-2023 Interpretation and review of laboratory results Normal [facility] Tacrolimus (Bld) [Mass/Vol] 8.7 ng/mL [facility] URINALYSIS REFLEX TO CULTURE PERFORMABLEon 08-29-2023 Appearance (U) Clear Normal Clear [facility] Comment on above: Order Comment: Pleas e draw at specified interval PRIOR to dose. Do not hold dose to wait for level. Specimens batched twice per day, (M-F) and once per day weekends Method performed is a chemiluminescent microparticle immunoasssay on the [employer] i2000. The range is based on experience at [facility] and users should be aware that target concentrations vary widely depending on concomitant therapy, time post-transplant, and desired degree of immunosuppression. Performed By: #### T ACRO #### [facility] (DEFAULT) [address] [address] Bacteria ABSENT Normal ABSENT [facility] Comment on above: Order Comment: Pleas e draw at specified interval PRIOR to dose. Do not hold dose to wait for level. Specimens batched twice per day, (M-F) and once per day weekends Method performed is a chemiluminescent microparticle immunoasssay on the [employer] i2000. The range is based on experience at [facility] and users should be aware that target concentrations vary widely depending on concomitant therapy, time post-transplant, and desired degree of immunosuppression. Performed By: #### T ACRO #### [facility] (DEFAULT) [address] [address] Blood Urine Trace Abnormal Negative [facility] Comment on above: Order Comment: Pleas e draw at specified interval PRIOR to dose. Do not hold dose to wait for level. Specimens batched twice per day, (M-F) and once per day weekends Method performed is a chemiluminescent microparticle immunoasssay on the [employer] i2000. The range is based on experience at [facility] and users should be aware that target concentrations vary widely depending on concomitant therapy, time post-transplant, and desired degree of immunosuppression. Performed By: #### T ACRO #### [facility] (DEFAULT) [address] [address] Calcium Oxalate Crystals PRESENT Normal [facility] Comment on above: Order Comment: Pleas e draw at specified interval PRIOR to dose. Do not hold dose to wait for level. Specimens batched twice per day, (M-F) and once per day weekends Method performed is a chemiluminescent microparticle immunoasssay on the [employer] i2000. The range is based on experience at [facility] and users should be aware that target concentrations vary widely depending on concomitant therapy, time post-transplant, and desired degree of immunosuppression. Performed By: #### T ACRO #### [facility] [address] [address] Color (U) Yellow Normal Yellow [facility] Comment on above: Order Comment: Pleas e draw at specified interval PRIOR to dose. Do not hold dose to wait for level. Specimens batched twice per day, (M-F) and once per day weekends Method performed is a chemiluminescent microparticle immunoasssay on the [employer] i2000. The range is based on experience at [facility] and users should be aware that target concentrations vary widely depending on concomitant therapy, time post-transplant, and desired degree of immunosuppression. Performed By: #### T ACRO #### [facility] (DEFAULT) [address] [address] Glucose Ql (U) Negative Normal Negative [facility] Comment on above: Order Comment: Pleas e draw at specified interval PRIOR to dose. Do not hold dose to wait for level. Specimens batched twice per day, (M-F) and once per day weekends Method performed is a chemiluminescent microparticle immunoasssay on the [employer] i2000. The range is based on experience at [facility] and users should be aware that target concentrations vary widely depending on concomitant therapy, time post-transplant, and desired degree of immunosuppression. Performed By: #### T ACRO #### [facility] (DEFAULT) [address] [place] [address]81 Ketones Ql (U) Negative Normal Negative [facility] Comment on above: Order Comment: Pleas e draw at specified interval PRIOR to dose. Do not hold dose to wait for level. Specimens batched twice per day, (M-F) and once per day weekends Method performed is a chemiluminescent microparticle immunoasssay on the [employer] i2000. The range is based on experience at [facility] and users should be aware that target concentrations vary widely depending on concomitant therapy, time post-transplant, and desired degree of immunosuppression. Performed By: #### T ACRO #### [facility] [address] [place] [address] 19585 Leukocyte esterase Test strip Ql (U) Negative Normal Negative [facility] Comment on above: Order Comment: Pleas e draw at specified interval PRIOR to dose. Do not hold dose to wait for level. Specimens batched twice per day, (M-F) and once per day weekends Method performed is a chemiluminescent microparticle immunoasssay on the [employer] i2000. The range is based on experience at [facility] and users should be aware that target concentrations vary widely depending on concomitant therapy, time post-transplant, and desired degree of immunosuppression. Performed By: #### T ACRO #### [facility] [address] [place] [address] 04971 Nitrites Urine Negative Normal Negative [facility] Comment on above: Order Comment: Pleas e draw at specified interval PRIOR to dose. Do not hold dose to wait for level. Specimens batched twice per day, (M-F) and once per day weekends Method performed is a chemiluminescent microparticle immunoasssay on the [employer] i2000. The range is based on experience at [facility] and users should be aware that target concentrations vary widely depending on concomitant therapy, time post-transplant, and desired degree of immunosuppression. Performed By: #### T ACRO #### [facility] [address] [place] [address]31 pH (U) 6.0 [pH] Normal 5.0-7.0 [facility] Comment on above: Order Comment: Pleas e draw at specified interval PRIOR to dose. Do not hold dose to wait for level. Specimens batched twice per day, (M-F) and once per day weekends Method performed is a chemiluminescent microparticle immunoasssay on the [employer] i2000. The range is based on experience at [facility] and users should be aware that target concentrations vary widely depending on concomitant therapy, time post-transplant, and desired degree of immunosuppression. Performed By: #### T ACRO #### [facility] (DEFAULT) [address] [place] [address] [id number] Protein Urine Negative Normal Negative [facility] Comment on above: Order Comment: Pleas e draw at specified interval PRIOR to dose. Do not hold dose to wait for level. Specimens batched twice per day, (M-F) and once per day weekends Method performed is a chemiluminescent microparticle immunoasssay on the [employer] i2000. The range is based on experience at [facility] and users should be aware that target concentrations vary widely depending on concomitant therapy, time post-transplant, and desired degree of immunosuppression. Performed By: #### T ACRO #### [facility] [address] [place] [address] RBC Urine 3-5 Abnormal 0-2 [facility] Comment on above: Order Comment: Pleas e draw at specified interval PRIOR to dose. Do not hold dose to wait for level. Specimens batched twice per day, (M-F) and once per day weekends Method performed is a chemiluminescent microparticle immunoasssay on the [employer] i2000. The range is based on experience at [facility] and users should be aware that target concentrations vary widely depending on concomitant therapy, time post-transplant, and desired degree of immunosuppression. Performed By: #### T ACRO #### [facility] (DEFAULT) [address] [address] Specific [place] Urine 1.015 Normal 1.001-1.035 [facility] Comment on above: Order Comment: Pleas e draw at specified interval PRIOR to dose. Do not hold dose to wait for level. Specimens batched twice per day, (M-F) and once per day weekends Method performed is a chemiluminescent microparticle immunoasssay on the [employer] i2000. The range is based on experience at [facility] and users should be aware that target concentrations vary widely depending on concomitant therapy, time post-transplant, and desired degree of immunosuppression. Performed By: #### T ACRO #### [facility] (DEFAULT) [address] [place] [address] Squamous/Epithelial Cells 0-2/hpf Normal 0-2/hpf, 3-5/hpf = 1+ [facility] Comment on above: Order Comment: Pleas e draw at specified interval PRIOR to dose. Do not hold dose to wait for level. Specimens batched twice per day, (M-F) and once per day weekends Method performed is a chemiluminescent microparticle immunoasssay on the [employer] i2000. The range is based on experience at [facility] and users should be aware that target concentrations vary widely depending on concomitant therapy, time post-transplant, and desired degree of immunosuppression. Performed By: #### T ACRO #### [facility] (DEFAULT) [address] [address] Urobilinogen Urine 1.0 E.U./dL Normal 0.2 E.U/d L, 1.0 E.U/dL [facility] Comment on above: Order Comment: Pleas e draw at specified interval PRIOR to dose. Do not hold dose to wait for level. Specimens batched twice per day, (M-F) and once per day weekends Method performed is a chemiluminescent microparticle immunoasssay on the [employer] i2000. The range is based on experience at [facility] and users should be aware that target concentrations vary widely depending on concomitant therapy, time post-transplant, and desired degree of immunosuppression. Performed By: #### T ACRO #### [facility] (DEFAULT) [address] [place] [address] WBC Urine 0 - 5 Normal 0 - 5 [facility] Comment on above: Order Comment: Pleas e draw at specified interval PRIOR to dose. Do not hold dose to wait for level. Specimens batched twice per day, (M-F) and once per day weekends Method performed is a chemiluminescent microparticle immunoasssay on the [employer] i2000. The range is based on experience at [facility] and users should be aware that target concentrations vary widely depending on concomitant therapy, time post-transplant, and desired degree of immunosuppression. Performed By: #### T ACRO #### [facility] (DEFAULT) [address] [address] URINALYSIS REFLEX TO CULTURE PERFORMABLEOrdered By: Shaji Kelly on 09-30-2023 Appearance (U) Clear Clear [facility] Bacteria LM Ql (Urine sed) ABSENT ABSENT [facility] Calcium Oxalate Crystals PRESENT [facility] Color (U) Yellow Yellow [facility] Epithelial cells.squamous LM Ql (Urine sed) 0-2/hpf 0-2/hpf, 3-5/hpf = 1+ [facility] Glucose Test strip (U) [Mass/Vol] Negative Negative [facility] Interpretation and review of laboratory results Abnormal [facility] Ketones (U) [Mass/Vol] Negative Negative [facility] Leukocyte esterase Test strip Ql (U) Negative Negative [facility] Nitrite Ql (U) Negative Negative [facility] pH (U) 6.0 [pH] 5.0 - 7.0 [facility] Protein (U) [Mass/Vol] Negative Negative [facility] RBC (U) [#/Vol] Trace Abnormal Negative [facility] RBC LM.HPF (Urine sed) [#/Area] 3-5 Abnormal [facility] Specific gravity (U) [Rel density] 1.015 1.001 - 1.035 [facility] Urobilinogen (U) [Mass/Vol] 1.0 E.U./dL 0.2 E.U/dL, 1.0 E.U/dL [facility] WBC LM.HPF (Urine sed) [#/Area] 0 - 5 [facility] URINE CULTUREon 08-29-2023 Bacteria identified Cx Nom (U) No Growth Normal [facility] Comment on above: Order Comment: For i ndwelling catheters, specimen collection is acceptable on catheter day 1 and 2 only. Sung top vacutainer. Urine must be to the fill line to process (4mls). If minimum volume, send urine in a yellow top vacutainer tube. Performed By: #### [facility] #### [facility] (DEFAULT) [address] [place] [address] [place] RENAL TRANSPLANT SCANon 0 08-29-2023 US [...] have reviewed and approved this report. Normal [facility] US for transplanted kidney l imitedon 08-29-2023 RADIOLOGY RADIOLOGY [facility] Radiology Study observation (narrative) [facility] US for transplanted kidney l imitedOrdered By: Romana Myers on 08-29-2023 [facility] Work Phone: XR CHEST PORTABLEon 08-29-20 XR CHEST PORTABLE EXAM: XR CHEST PORTABLE, 08/28/2023 21:46 PM CLINICAL INDICATIONS: Fevers, cough RELEVANT CLINICAL HISTORY: COMPARISON: May 17, 2022 FINDINGS: Clear lungs. Prominent heart, unchanged. No pulmonary edema. Normal bones. IMPRESSION: Prominent heart without pulmonary edema. Clear lungs. Normal [facility] BLOOD CULTUREon 08-28-2023 Bacteria identified Cx Nom (Unsp spec) NO GROWTH DAY 5 OF 5 Normal [facility] Comment on above: Order Comment: 2 Bot tles (1 Set - consists of 1 Aerobic bottle and 1 Anaerobic bottle) -1st Peripheral DrawFor syringe method draw:If able to obtain adequate sample (20 ml) inoculate anaerobic bottle firstIf inadequate sample obtained (less than 20 ml) inoculate aerobic bottle firstFor vacutainer method draw: Fill aerobic bottle first, then anaerobic Performed By: #### H [facility] #### [facility] (DEFAULT) [address] [place] [address] Bacteria identified Cx Nom (Unsp spec) NO GROWTH DAY 5 OF 5 Normal [facility] Comment on above: Order Comment: 2 Bot tles (1 Set - consists of 1 Aerobic bottle and 1 Anaerobic bottle) -1st Peripheral DrawFor syringe method draw:If able to obtain adequate sample (20 ml) inoculate anaerobic bottle firstIf inadequate sample obtained (less than 20 ml) inoculate aerobic bottle firstFor vacutainer method draw: Fill aerobic bottle first, then anaerobic Performed By: #### [facility] #### [facility] (DEFAULT) [address] [place] [address] DARYL AURIS SCREEN BY PCRo n 08-28-2023 Daryl auris Screen by PCR Not detected Normal Not Detected [facility] Comment on above: Order Comment: This test was performed using a real-time PCR assay. This test was developed, and its performance characteristics determined by [facility]. It has not been cleared or approved by the FDA. The laboratory is regulated under CLIA as qualified to perform high-complexity testing. This test is used for clinical purposes. It should not be regarded as investigational or for research. Performed By: #### [facility] #### [facility]DEFAULT[facility] [address] [address] CBC AND ELECTRONIC DIFFon Abs Baso Auto < Normal 0.00-0.09 [facility] Comment on above: Performed By: #### Vale UNDERWOOD #### [facility] (DEFAULT) [address] [address] Basophils/100 WBC (Bld) 0.6 % Normal [facility] Comment on above: Performed By: #### Vale UNDERWOOD #### [facility] (DEFAULT) [address] [address] DIFF STATUS Electronic Differential Normal [facility] Comment on above: Performed By: #### Vale UNDERWOOD #### [facility] (DEFAULT) [address] [address] Eosinophils (Bld) [#/Vol] 0.10 10*3/uL Normal 0.00-0.48 [facility] Comment on above: Performed By: #### Vale UNDERWOOD #### [facility] (DEFAULT) [address] [address] Eosinophils/100 WBC (Bld) 2.1 % Normal [facility] Comment on above: Performed By: ###Walter UNDERWOOD #### [facility] (DEFAULT) [address] [address] Hematocrit (Bld) [Volume fraction] 37.9 % Low 39.6-48.8 [facility] Comment on above: Performed By: #### Vale UNDERWOOD #### [facility] (DEFAULT) [address] [address] Hemoglobin (Bld) [Mass/Vol] 12.4 g/dL Low 13.4-16.8 [facility] Comment on above: Performed By: #### Vale UNDERWOOD #### [facility] (DEFAULT) [address] [address] Immature Grans % 0.6 % Normal [facility] Comment on above: Performed By: #### Vale UNDERWOOD #### [facility] (DEFAULT) [address] [place] [address] Immature Grans Absolute < Normal <=0.07 [facility] Comment on above: Performed By: #### Vale UNDERWOOD #### [facility] (DEFAULT) [address] [place] [address] Lymphocytes (Bld) [#/Vol] 1.76 10*3/uL Normal 0.83-3.57 [facility] Comment on above: Performed By: #### G YASMINE #### [facility] (DEFAULT) [address] [place] [address] Lymphocytes/100 WBC (Bld) 37.1 % Normal [facility] Comment on above: Performed By: #### Vale UNDERWOOD #### [facility] (DEFAULT) [address] [place] [address] MCV (RBC) [Entitic vol] 85.0 fL Normal 79.0-94.5 [facility] Comment on above: Performed By: #### Vale UNDERWOOD #### [facility] (DEFAULT) [address] [address] Mean Cell Hgb 27.8 pg Normal 26.1-33.3 [facility] Comment on above: Performed By: #### Vale UNDERWOOD #### [facility] (DEFAULT) [address] [address] Mean Cell Hgb Conc 32.7 g/dL Normal 31.9-36.5 [facility] Comment on above: Performed By: #### Vale UNDERWOOD #### [facility] (DEFAULT) [address] [place] [address] Monocytes (Bld) [#/Vol] 0.66 10*3/uL Normal 0.24-0.93 [facility] Comment on above: Performed By: #### Vale ASAASHISH #### [facility] (DEFAULT) [address] [place] [address] Monocytes/100 WBC (Bld) 13.9 % Normal [facility] Comment on above: Performed By: #### Vale UNDERWOOD #### [facility] (DEFAULT) [address] [address] Nucleated RBC 0.0 /100 WBC Normal <=0.2 [facility] Comment on above: Performed By: #### Vale UNDERWOOD #### [facility] (DEFAULT) [address] [address] Platelet mean volume (Bld) [Entitic vol] 9.3 fL Normal 8.7-12.3 [facility] Comment on above: Performed By: #### Vale UNDERWOOD #### [facility] (DEFAULT) [address] [address] Platelets (Bld) [#/Vol] 262 10*3/uL Normal 146-337 [facility] Comment on above: Performed By: #### Vale UNDERWOOD #### [facility] (DEFAULT) [address] [address] RBC (Bld) [#/Vol] 4.46 10*6/uL Normal 4.38-5.83 [facility] Comment on above: Performed By: ###Walter UNDERWOOD #### [facility] (DEFAULT) [address] [address] RBC Distribution 13.4 % Normal 10.9-14.3 [facility] Comment on above: Performed By: #### Vale UNDERWOOD #### [facility] (DEFAULT) [address] [address] Segs + Bands Auto 45.7 % Normal [facility] Comment on above: Performed By: #### Vale UNDERWOOD #### [facility] (DEFAULT) [address] [address] Segs + Bands,Absolute Auto 2.16 K/uL Normal 1.57-6.19 [facility] Comment on above: Performed By: #### Vale UNDERWOOD #### [facility] (DEFAULT) [address] [place] [address] WBC (Bld) [#/Vol] 4.74 10*3/uL Normal 3.73-10.10 [facility] Comment on above: Performed By: #### G YASMINE #### [facility] (DEFAULT) [address] [place] [address] Basophils (Bld) [#/Vol] K/uL 0.00 - 0.09 K/uL [facility] Basophils/100 WBC (Bld) 0.6 % [facility] Differential cell count method Nom (Bld) Electronic Differential [facility] Eosinophils (Bld) [#/Vol] 0.10 10*3/uL 0.00 - 0.48 K/uL [facility] Eosinophils/100 WBC (Bld) 2.1 % [facility] Erythrocyte distribution width (RBC) [Ratio] 13.4 % 10.9 - 14.3 % [facility] Hematocrit (Bld) [Volume fraction] 37.9 % Low 39.6 - 48.8 % [facility] Hemoglobin (Bld) [Mass/Vol] 12.4 g/dL Low 13.4 - 16.8 g/dL [facility] Immature granulocytes (Bld) [#/Vol] K/uL NINF - 0.07 K/uL [facility] Immature granulocytes/100 WBC (Bld) 0.6 % [facility] Interpretation and review of laboratory results Abnormal [facility] Lymphocytes (Bld) [#/Vol] 1.76 10*3/uL 0.83 - 3.57 K/uL [facility] Lymphocytes/100 WBC (Bld) 37.1 % [facility] MCH (RBC) [Entitic mass] 27.8 pg 26.1 - 33.3 pg [facility] MCHC (RBC) [Mass/Vol] 32.7 g/dL 31.9 - 36.5 g/dL [facility] MCV (RBC) [Entitic vol] 85.0 fL 79.0 - 94.5 fL [facility] Monocytes (Bld) [#/Vol] 0.66 10*3/uL 0.24 - 0.93 K/uL [facility] Monocytes/100 WBC (Bld) 13.9 % [facility] Neutrophils (Bld) [#/Vol] 2.16 10*3/uL 1.57 - 6.19 K/uL [facility] Nucleated RBC/100 WBC (Bld) [Ratio] 0.0 % NINF [facility] Platelet mean volume (Bld) [Entitic vol] 9.3 fL 8.7 - 12.3 fL [facility] Platelets (Bld) [#/Vol] 262 10*3/uL 146 - 337 K/uL [facility] RBC (Bld) [#/Vol] 4.46 10*6/uL [facility] Segmented neutrophils/100 WBC (Bld) 45.7 % [facility] WBC (Bld) [#/Vol] 4.74 10*3/uL 3.73 - 10. 10 K/uL [facility] CHEM 6 (LYTES, BUN CREA)on 0 08-28-2023 Anion gap [Moles/Vol] 13 mmol/L Normal 7-17 [facility] Comment on above: Performed By: #### C HM6 #### [facility] (DEFAULT) [address] [place] [address] Chloride [Moles/Vol] 103 mmol/L Normal 98-108 [facility] Comment on above: Performed By: #### C HM6 #### [facility] (DEFAULT) [address] [place] [address] CO2 [Moles/Vol] 22 mmol/L Normal 21-31 [facility] Comment on above: Performed By: #### C HM6 #### [facility] (DEFAULT) [address] [place] [address] Creatinine [Mass/Vol] 1.62 mg/dL High 0.70-1.30 [facility] Comment on above: Performed By: #### C HM6 #### [facility] (DEFAULT) [address] [place] [address] GFR/1.73 sq M.predicted among non-blacks MDRD (S/P/Bld) [Vol rate/Area] 51 mL/min/{1.73_m2} Low >=60 [facility] Comment on above: Result Comment: Repo rted eGFR is based on the CKD-EPI 2020 equation using creatinine, age, and sex. Performed By: #### C HM6 #### [facility] (DEFAULT) [address] [place] [address] Potassium [Moles/Vol] 4.3 mmol/L Normal 3.5-5.0 [facility] Comment on above: Performed By: #### C HM6 #### [facility] (DEFAULT) [address] [place] [address] Sodium [Moles/Vol] 134 mmol/L Low 135-145 [facility] Comment on above: Performed By: #### C HM6 #### [facility] (DEFAULT) [address] [place] [address] Urea nitrogen [Mass/Vol] 22 mg/dL Normal 7-25 [facility] Comment on above: Performed By: #### C HM6 #### [facility] (DEFAULT) [address] [place] [address] Urea nitrogen/Creatinine [Mass ratio] 14 mg/mg Normal [facility] Comment on above: Performed By: #### C HM6 #### [facility] (DEFAULT) [address] [place] [address] Anion gap [Moles/Vol] 13 mmol/L 7 - 17 mmol/L [facility] Chloride [Moles/Vol] 103 mmol/L 98 - 10 8 mmol/L [facility] CO2 [Moles/Vol] 22 mmol/L 21 - 31 mmol/L [facility] Creatinine [Mass/Vol] 1.62 mg/dL High 0.70 - 1.30 mg/dL [facility] eGFR, CKD-EPI, Male 51 Low - PINF [facility] Interpretation and review of laboratory results Abnormal [facility] Potassium [Moles/Vol] 4.3 mmol/L 3.5 - 5.0 mmol/L [facility] Sodium [Moles/Vol] 134 mmol/L Low 135 - 145 mmol/L [facility] Urea nitrogen [Mass/Vol] 22 mg/dL 7 - 25 mg/dL [facility] Urea nitrogen/Creatinine [Mass ratio] 14 mg/mg [facility] RESPIR[facility] Y PANELon 08-28-2023 Adenovirus - Pcr Not detected Normal Not Detected [facility] Comment on above: Order Comment: Viral [...] acid assay. Performed By: #### [facility] #### [facility] (DEFAULT) [address] [place] [address] Bordetella Parapertussis Not detected Normal Not Detected [facility] Comment on above: Order Comment: Viral [...] acid assay. Performed By: #### [facility] #### [facility] (DEFAULT) [address] [address] Bordetella Pertussis Not detected Normal Not Detected [facility] Comment on above: Order Comment: Viral [...] acid assay. Performed By: #### [facility] #### [facility] (DEFAULT) [address] [place] [address] Chlamydia Pneumoniae Not detected Normal Not Detected [facility] Comment on above: Order Comment: Viral [...] H EMO #### [facility] [address] [place] [address] Coronavirus 229E Not detected Normal Not Detected [facility] Comment on above: Order Comment: Viral [...] H EMOGC #### [facility] (DEFAULT) [address] [place] [address] Coronavirus Hku1 Not detected Normal Not Detected [facility] Comment on above: Order Comment: Viral [...] acid assay. Performed By: #### [facility] #### [facility] (DEFAULT) [address] [address] Coronavirus Nl63 Not detected Normal Not Detected [facility] Comment on above: Order Comment: Viral [...] acid assay. Performed By: #### [facility] #### [facility] (DEFAULT) [address] [place] [address] Coronavirus Oc43 Not detected Normal Not Detected [facility] Comment on above: Order Comment: Viral [...] H EMO #### [facility]DEFAULT[facility] [address] [address] Influenza A - Pcr Not detected Normal [...] acid assay. Performed By: #### [facility] #### [facility] (DEFAULT) [address] [place] [address] Influenza B - Pcr Not detected Normal Not Detected [facility] Comment on above: Order Comment: Viral [...] acid assay. Performed By: #### [facility] #### [facility] (DEFAULT) [address] [place] [address] Metapneumovirus - Pcr Not detected Normal Not Detected [facility] Comment on above: Order Comment: Viral [...] acid assay. Performed By: #### [facility] #### [facility] (DEFAULT) [address] [place] [address] Mycoplasma Pneumoniae Not detected Normal Not Detected [facility] Comment on above: Order Comment: Viral [...] acid assay. Performed By: #### [facility] #### [facility] (DEFAULT) [address] [address] Parainfluenza 1 - Pcr Not detected Normal Not Detected [facility] Comment on above: Order Comment: Viral [...] acid assay. Performed By: #### [facility] #### [facility] (DEFAULT) [address] [address] Parainfluenza 2 - Pcr Not detected Normal Not Detected [facility] Comment on above: Order Comment: Viral [...] assay. Performed By: #### H EMO #### [facility] (DEFAULT) [address] [address] Parainfluenza 3 - Pcr Not detected Normal Not Detected [facility] Comment on above: Order Comment: Viral [...] acid assay. Performed By: #### [facility] #### [facility] (DEFAULT) [address] [address] Parainfluenza 4 - Pcr Not detected Normal Not Detected [facility] Comment on above: Order Comment: Viral [...] H EMO #### [facility] [address] [address] Rhinovirus/Enteroviru s - PCR Not detected Normal Not Detected [facility] Comment on above: Order Comment: Viral [...] H EMO #### [facility]DEFAULT[facility] [address] [address] Rsv - Pcr Not detected Normal Not Detected [facility] Comment on above: Order Comment: Viral [...] acid assay. Performed By: #### [facility] #### [facility] (DEFAULT) [address] [place] [address] SARS-CoV-2 (COVID-19) RNA ESTELITA+probe Ql (Unsp spec) Not detected Normal NOT DETECTED [facility] Comment on above: Order Comment: Viral [...] acid assay. Performed By: #### [facility] #### [facility] (DEFAULT) [address] [place] [address] Portable XR Chest Viewson Radiology Study observation (narrative) [facility] Respiratory virus DNA+RNA NA A+probe Nom (Unsp spec)Ordered By: Dayami Harris on 08-28-2023 Adenovirus DNA ESTELITA+probe Nom (Unsp spec) Not detected Not Detected [facility] B. parapertussis DNA ESTELITA+probe Ql (Unsp spec) Not detected Not Detected [facility] B. pertussis DNA ESTELITA+probe Ql (Unsp spec) Not detected Not Detected [facility] C. pneumoniae DNA ESTELITA+probe Ql (Unsp spec) Not detected Not Detected [facility] FLUAV RNA ESTELITA+probe Ql (Unsp spec) Not detected Not Detected [facility] FLUBV RNA ESTELITA+probe Ql (Unsp spec) Not detected [facility] HCoV 229E RNA ESTELITA+non-probe Ql (Nph) Not detected Not [facility] H[facility] HKU1 RNA ESTELITA+non-probe Ql (Nph) Not detected Not Detected [facility] HCoV NL63 RNA ESTELITA+non-probe Ql (Nph) Not detected Not Detected [facility] HCoV OC43 RNA ESTELITA+non-probe Ql (Nph) Not detected Not Detected [facility] hMPV A RNA ESTELITA+probe Ql (Unsp spec) Not detected Not Detected [facility] Interpretation and review of laboratory results Normal [facility] M. pneumoniae DNA ESTELITA+probe Ql (Unsp spec) Not detected Not [facility] Parainfluenza virus 1 RNA ESTELITA+probe Ql (Unsp spec) Not detected Not Detect[facility] Parainfluenza virus 2 RNA ESTELITA+probe Ql (Unsp spec) Not detected Not Detect[facility] Parainfluenza virus 3 RNA ESTELITA+probe Ql (Unsp spec) Not detected Not Detected [facility] Parainfluenza virus 4 RNA ESTELITA+probe Ql (Unsp spec) Not detected Not Detected [facility] Rhinovirus+Enteroviru s RNA ESTELITA+probe Ql (Unsp spec) Not detected Not Detected [facility] RSV RNA ESTELITA+probe Ql (Unsp spec) Not detected Not Detected [facility] SARS-CoV-2 (COVID-19) RNA ESTELITA+probe Ql (Unsp spec) Not detected NOT DETECTED [facility] ALBUMINon 04-28-2023 Albumin [Mass/Vol] 4.0 g/dL Normal 3.4-5.0 [facility] Comment on above: Performed By: #### C MP #### [facility] [address] [place] [address] Dr. Dwight Waters ALKALINE PHOSPHAon 05-30-202 3 ALP [Catalytic activity/Vol] 106 U/L Normal 46-116 [facility] Comment on above: Performed By: #### F [id number] #### [facility] [address] [place] [address] Dr. Dwight Waters BILIRUBIN CONJUGATED (DIRECT )on 04-28-2023 BILI, CONJUGATED 0.3 mg/dL Critically high 0.0-0.2 [facility] Comment on above: Performed By: #### C MP #### [facility] [address] [place] [address] Dr. Dwight Waters BILIRUBIN TOTALon 04-28-2023 Bilirubin [Mass/Vol] 1.4 mg/dL Critically high 0.2-1.0 [facility] Comment on above: Performed By: #### C MP #### [facility] [address] [place] [address] Dr. Dwight Waters BUNon 04-28-2023 Urea nitrogen [Mass/Vol] 12.0 mg/dL Normal 7.0-18.0 [facility] Comment on above: Performed By: #### U RTPCR #### [facility] [address] [place] [address] Dr. Dwight Waters CALCIUMon 04-28-2023 Calcium [Mass/Vol] 9.3 mg/dL Normal 8.5-10.1 [facility] Comment on above: Performed By: #### U RTPCR #### [facility] [address] [place] [address] Dr. Dwight Waters CBC AUTO DIFFon 04-28-2023 BASO # 0.1 103/ul Normal 0.0-0.1 [facility] Comment on above: Performed By: #### C BC #### [facility] [address] [place] [address] Dr. Dwight Waters Basophils/100 WBC (Bld) 0.9 % Normal 0.2-2.0 [facility] Comment on above: Performed By: #### C BC #### [facility] [address] [place] [address] Dr. Dwight Waters EO # 0.2 103/ul Normal 0.0-0.7 [facility] Comment on above: Performed By: #### C BC #### [facility] [address] [place] [address] Dr. Dwight Waters Eosinophils/100 WBC (Bld) 3.8 % Normal 0.9-7.0 [facility] Comment on above: Performed By: #### C BC #### [facility] [address] [place] [address] Dr. Dwight Waters Erythrocyte distribution width (RBC) [Ratio] 12.5 % Normal 11.0-15.0 [facility] Comment on above: Performed By: #### C BC #### [facility] [address] [place] [address] Dr. Dwight Waters Hematocrit (Bld) [Volume fraction] 49.8 % Normal 42.0-54.0 [facility] Comment on above: Performed By: #### C BC #### [facility] [address] [place] [address] Dr. Dwight Waters Hemoglobin (Bld) [Mass/Vol] 16.4 g/dL Normal 14.0-18.0 [facility] Comment on above: Performed By: #### C BC #### [facility] [address] [place] [address] Dr. Dwight Waters IG # 0.01 10e3/ul Normal 0.00-0.03 [facility] Comment on above: Performed By: #### C BC #### [facility] [address] [place] [address] Dr. Dwight Waters IG % 0.2 % Normal 0.0-0.5 [facility] Comment on above: Performed By: #### C BC #### [facility] [address] [place] [address] Dr. Dwight Waters LYMPH # 2.1 103/ul Normal 1.2-3.8 [facility] Comment on above: Performed By: #### C BC #### [facility] [address] [place] [address] Dr. Dwight Waters Lymphocytes/100 WBC (Bld) 39.1 % Normal 20.5-60.0 [facility] Comment on above: Performed By: #### C BC #### [facility] [address] [place] [address] Dr. Dwight Waters MANUAL DIFF REQ NO Normal [facility] Comment on above: Performed By: #### C BC #### [facility] [address] [place] [address] Dr. Dwight Waters MCH (RBC) [Entitic mass] 28.6 pg Normal 25.9-34.0 [facility] Comment on above: Performed By: #### C BC #### [facility] [address] [place] [address] Dr. Dwight Waters MCHC (RBC) [Mass/Vol] 32.9 g/dL Normal 29.9-35.2 [facility] Comment on above: Performed By: #### C BC #### [facility] [address] [place] [address] Dr. Dwight Waters MCV (RBC) [Entitic vol] 86.9 fL Normal 80.0-94.0 [facility] Comment on above: Performed By: #### C BC #### [facility] [address] [place] [address] Dr. Dwight Waters MONO # 0.6 103/ul Normal 0.3-0.8 [facility] Comment on above: Performed By: #### C BC #### [facility] [address] [place] [address] Dr. Dwight Waters Monocytes/100 WBC (Bld) 10.6 % Normal 1.7-12.0 [facility] Comment on above: Performed By: #### C BC #### [facility] [address] [place] [address] Dr. Dwight Waters NEUT # 2.5 103/ul Normal 1.4-6.5 [facility] Comment on above: Performed By: #### C BC #### [facility] [address] [place] [address] Dr. Dwight Waters Neutrophils/100 WBC (Bld) 45.4 % Normal 43.0-75.0 [facility] Comment on above: Performed By: #### C BC #### [facility] [address] [place] [address] Dr. Dwight Waters Platelet mean volume (Bld) [Entitic vol] 9.3 fL Critically low 9.5-13.5 [facility] Comment on above: Performed By: #### C BC #### [facility] [address] [place] [address] Dr. Dwight Waters PLT 248 103/ul Normal 150-450 [facility] Comment on above: Performed By: #### C BC #### [facility] [address] [place] [address] Dr. Dwight Waters RBC 5.73 106/ul Normal 4.70-6.10 [facility] Comment on above: Performed By: #### C BC #### [facility] [address] [place] [address] Dr. Dwight Waters WBC 5.5 103/ul Normal 4.0-11.0 [facility] Comment on above: Performed By: #### C BC #### [facility] [address] [place] [address] Dr. Dwight Waters CHLORIDEon 04-28-2023 Chloride [Moles/Vol] 107 mmol/L Normal 98-107 [facility] Comment on above: Performed By: #### U RTPCR #### [facility] [address] [place] [address] Dr. Dwight Waters CO2on 04-28-2023 CO2 [Moles/Vol] 28.9 mmol/L Normal 21.0-32.0 [facility] Comment on above: Performed By: #### U RTPCR #### [facility] [address] [place] [address] Dr. Dwight Waters CREATININEon 04-28-2023 Creatinine [Mass/Vol] 1.17 mg/dL Normal 0.70-1.30 [facility] Comment on above: Performed By: #### U RTPCR #### [facility] [address] [place] [address] Dr. Dwight Waters EGFR-AF TAJIK >60 Normal >=60 [facility] Comment on above: Performed By: #### U RTPCR #### [facility] [address] [place] [address] Dr. Dwight Waters EGFR-NON AF TAJIK >60 Normal >=60 [facility] Comment on above: Performed By: #### U RTPCR #### [facility] [address] [place] [address] Dr. Dwight Waters GGTon 04-28-2023 Gamma glutamyl transferase [Catalytic activity/Vol] 27 U/L Normal 15-85 [facility] Comment on above: Performed By: #### U RTPCR #### [facility] [address] [place] [address] Dr. Dwight Waters GLUCOSE BLOODon 04-28-2023 Glucose [Mass/Vol] 110 mg/dL Critically high 74-106 [facility] Comment on above: Performed By: #### U RTPCR #### [facility] [address] [place] [address] Dr. Dwight Waters MAGNESIUMon 04-28-2023 Magnesium [Mass/Vol] 1.7 mg/dL Critically low 1.8-2.4 [facility] Comment on above: Performed By: #### U RTPCR #### [facility] [address] [place] [address] Dr. Dwight Waters NAon 04-28-2023 Sodium [Moles/Vol] 144 mmol/L Normal 136-145 [facility] Comment on above: Performed By: #### U RTPCR #### [facility] [address] [place] [address] Dr. Dwight Waters PHOSPHORUSon 04-28-2023 Phosphate [Mass/Vol] 3.2 mg/dL Normal 2.6-4.7 [facility] Comment on above: Performed By: #### U RTPCR #### [facility] [address] [place] [address] Dr. Dwight Waters POTASSIUMon 04-28-2023 Potassium [Moles/Vol] 4.0 mmol/L Normal 3.5-5.1 [facility] Comment on above: Performed By: #### U RTPCR #### [facility] [address] [place] [address] Dr. Dwight Waters SGOTon 04-28-2023 AST [Catalytic activity/Vol] 25 U/L Normal 15-37 [facility] Comment on above: Performed By: #### C MP #### [facility] [address] [place] [address] Dr. Dwight Waters SGPTon 04-28-2023 ALT [Catalytic activity/Vol] 40 U/L Normal 16-63 [facility] Comment on above: Performed By: #### C MP #### [facility] [address] [place] [address] Dr. Dwight Waters URINE T PROTEIN CREAT RATIOo 04-28-2023 Protein (U) [Mass/Vol] 10.1 mg/dL Normal <=12.0 [facility] Comment on above: Performed By: #### U RTPCR #### [facility] [address] [place] [address] Dr. Dwight Waters UR PROT CREAT RAT 0.14 Normal [facility] Comment on above: Performed By: #### U RTPCR #### [facility] [address] [place] [address] Dr. Dwight Waters URINE CREAT 74.40 mg/dL Normal 20.00-300.00 [facility] Comment on above: Performed By: #### U RTPCR #### [facility] [address] [place] [address] Dr. Dwight Waters Office Visiton 04-13-2023 Follow-up visit [id number] George Styles 1970 M Date Provider Department Center 04/13/2023 MIGUEL PARADA [facility] Family History Problem Relation Age of Onset Coronary artery disease Mother Coronary artery disease Father Family Status - Relation Status Age at Mother Father Level of Service:90460 NM OFFICE/OUTPATIENT ESTABLISHED LOW MDM 20-29 MIN Reason for Visit and Comments: Hypertension [525969] Hyperlipidemia [182] Normal [facility] BK VIRUS PCR QUANTon 023 BKV DNA QUANT PCR PLASMA Negative Normal Negative [facility] Comment on above: Result Comment: No B K DNA detected. . The linear range of the assay is 22 - 100,000,000 IU/mL. Performed By: #### B KVIRUS #### [facility] [address] [place] [address] Dr. Dwight Waters Log10 BKV DNA Plasma Normal [facility] Comment on above: Performed By: #### B KVIRUS #### [facility] [address] [place] [address] Dr. Dwight Waters FK506 (TACROLIMUS) WHOLE BLO ODon 03-04-2023 Tacrolimus (FK506), Blood 5.9 ng/mL Normal 2.0-20.0 [facility] Comment on above: Result Comment: Trou gh (immediately following transplant) 15.0 . Trough (steady state, 2 weeks or more after transplant): 3.0 - 8.0 . Performed by LC-MS/MS technology. Performed By: #### C MP #### [facility] [address] [place] [address] Dr. Dwight Waters ALBUMINon 03-02-2023 Albumin [Mass/Vol] 3.9 g/dL Normal 3.4-5.0 [facility] Comment on above: Performed By: #### U RTPCR #### [facility] [address] [place] [address] Dr. Dwight Waters ALKALINE PHOSPHAon ALP [Catalytic activity/Vol] 105 U/L Normal 46-116 [facility] Comment on above: Performed By: #### U RTPCR #### [facility] [address] [place] [address] Dr. Dwight Waters BILIRUBIN CONJUGATED (DIRECT )on 03-02-2023 BILI, CONJUGATED 0.2 mg/dL Normal 0.0-0.2 [facility] Comment on above: Performed By: #### U RTPCR #### [facility] [address] [place] [address] Dr. Dwight Waetrs BILIRUBIN TOTALon 03-02-2023 Bilirubin [Mass/Vol] 0.9 mg/dL Normal 0.2-1.0 [facility] Comment on above: Performed By: #### U RTPCR #### [facility] [address] [place] [address] Dr. Dwight Waters CBC AUTO DIFFon 03-02-2023 BASO # 0.1 103/ul Normal 0.0-0.1 [facility] Comment on above: Performed By: #### C BC #### [facility] [address] [place] [address] Dr. Dwight Waters Basophils/100 WBC (Bld) 0.9 % Normal 0.2-2.0 [facility] Comment on above: Performed By: #### C BC #### [facility] [address] [place] [address] Dr. Dwight Waters EO # 0.2 103/ul Normal 0.0-0.7 [facility] Comment on above: Performed By: #### C BC #### [facility] [address] [place] [address] Dr. Dwight Waters Eosinophils/100 WBC (Bld) 3.5 % Normal 0.9-7.0 [facility] Comment on above: Performed By: #### C BC #### [facility] [address] [place] [address] Dr. Dwight Waters Erythrocyte distribution width (RBC) [Ratio] 12.7 % Normal 11.0-15.0 [facility] Comment on above: Performed By: #### C BC #### [facility] [address] [place] [address] Dr. Dwight Waters Hematocrit (Bld) [Volume fraction] 48.2 % Normal 42.0-54.0 [facility] Comment on above: Performed By: #### C BC #### [facility] [address] [place] [address] Dr. Dwight Waters Hemoglobin (Bld) [Mass/Vol] 15.9 g/dL Normal 14.0-18.0 [facility] Comment on above: Performed By: #### C BC #### [facility] [address] [place] [address] Dr. Dwight Waters IG # 0.01 10e3/ul Normal 0.00-0.03 [facility] Comment on above: Performed By: #### C BC #### [facility] [address] [place] [address] Dr. Dwight Waters IG % 0.2 % Normal 0.0-0.5 [facility] Comment on above: Performed By: #### C BC #### [facility] [address] [place] [address] Dr. Dwight Waters LYMPH # 2.1 103/ul Normal 1.2-3.8 [facility] Comment on above: Performed By: #### C BC #### [facility] [address] [place] [address] Dr. Dwight Waters Lymphocytes/100 WBC (Bld) 37.4 % Normal 20.5-60.0 [facility] Comment on above: Performed By: #### C BC #### [facility] [address] [place] [address] Dr. Dwight Waters MANUAL DIFF REQ NO Normal [facility] Comment on above: Performed By: #### C BC #### [facility] [address] [place] [address] Dr. Dwight Waters MCH (RBC) [Entitic mass] 28.3 pg Normal 25.9-34.0 [facility] Comment on above: Performed By: #### C BC #### [facility] [address] [place] [address] Dr. Dwight Waters MCHC (RBC) [Mass/Vol] 33.0 g/dL Normal 29.9-35.2 [facility] Comment on above: Performed By: #### C BC #### [facility] [address] [place] [address] Dr. Dwight Waters MCV (RBC) [Entitic vol] 85.8 fL Normal 80.0-94.0 [facility] Comment on above: Performed By: #### C BC #### [facility] [address] [place] [address] Dr. Dwight Waters MONO # 0.6 103/ul Normal 0.3-0.8 [facility] Comment on above: Performed By: #### C BC #### [facility] [address] [place] [address] Dr. Dwight Waters Monocytes/100 WBC (Bld) 10.2 % Normal 1.7-12.0 [facility] Comment on above: Performed By: #### C BC #### [facility] [address] [place] [address] Dr. Dwight Waters NEUT # 2.7 103/ul Normal 1.4-6.5 [facility] Comment on above: Performed By: #### C BC #### [facility] [address] [place] [address] Dr. Dwight Waters Neutrophils/100 WBC (Bld) 47.8 % Normal 43.0-75.0 [facility] Comment on above: Performed By: #### C BC #### [facility] [address] [place] [address] Dr. Dwight Waters Platelet mean volume (Bld) [Entitic vol] 9.3 fL Critically low 9.5-13.5 [facility] Comment on above: Performed By: #### C BC #### [facility] [address] [place] [address] Dr. Dwight Waters PLT 241 103/ul Normal 150-450 [facility] Comment on above: Performed By: #### C BC #### [facility] [address] [place] [address] Dr. Dwight Waters RBC 5.62 106/ul Normal 4.70-6.10 [facility] Comment on above: Performed By: #### C BC #### [facility] [address] [place] [address] Dr. Dwight Waters WBC 5.7 103/ul Normal 4.0-11.0 [facility] Comment on above: Performed By: #### C BC #### [facility] [address] [place] [address] Dr. Dwight Waters GGTon 03-02-2023 Gamma glutamyl transferase [Catalytic activity/Vol] 25 U/L Normal 15-85 [facility] Comment on above: Performed By: #### U RTPCR #### [facility] [address] [place] [address] Dr. Dwight Waters MAGNESIUMon 04-03-2023 Magnesium [Mass/Vol] 1.6 mg/dL Critically low 1.8-2.4 [facility] Comment on above: Performed By: #### U RTPCR #### [facility] [address] [place] [address] Dr. Dwight Waters PHOSPHORUSon 03-02-2023 Phosphate [Mass/Vol] 3.6 mg/dL Normal 2.6-4.7 [facility] Comment on above: Performed By: #### U RTPCR #### [facility] [address] [place] [address] Dr. Dwight Waters PROF CHEM 8 (BAS METB)on Anion gap [Moles/Vol] 9.4 mmol/L Normal [facility] Comment on above: Performed By: #### U RTPCR #### [facility] [address] [place] [address] Dr. Dwight Waters Calcium [Mass/Vol] 9.3 mg/dL Normal 8.5-10.1 [facility] Comment on above: Performed By: #### U RTPCR #### [facility] [address] [place] [address] Dr. Dwight Waters Chloride [Moles/Vol] 108 mmol/L Critically high 98-107 [facility] Comment on above: Performed By: #### U RTPCR #### [facility] [address] [place] [address] Dr. Dwight Waters CO2 [Moles/Vol] 27.2 mmol/L Normal 21.0-32.0 [facility] Comment on above: Performed By: #### U RTPCR #### [facility] [address] [place] [address] Dr. Dwight Waters Creatinine [Mass/Vol] 1.12 mg/dL Normal 0.70-1.30 [facility] Comment on above: Performed By: #### U RTPCR #### [facility] [address] [place] [address] Dr. Dwight Waters EGFR-AF TAJIK >60 Normal >=60 [facility] Comment on above: Performed By: #### U RTPCR #### [facility] [address] [place] [address] Dr. Dwight Waters EGFR-NON AF TAJIK >60 Normal >=60 [facility] Comment on above: Performed By: #### U RTPCR #### [facility] [address] [address] [address] Dwight Waters Glucose [Mass/Vol] 113 mg/dL Critically high 74-106 [facility] Comment on above: Performed By: #### U RTPCR #### [facility] [address] [address] [address] Dwight Waters Potassium [Moles/Vol] 3.6 mmol/L Normal 3.5-5.1 [facility] Comment on above: Performed By: #### U RTPCR #### [facility] [address] [place] [address] Dr. Dwight Waters Sodium [Moles/Vol] 141 mmol/L Normal 136-145 [facility] Comment on above: Performed By: #### U RTPCR #### [facility] [address] [place] [address] Dr. Dwight Waters Urea nitrogen [Mass/Vol] 14.0 mg/dL Normal 7.0-18.0 [facility] Comment on above: Performed By: #### U RTPCR #### [facility] [address] [place] [address] Dr. Dwight Waters Urea nitrogen/Creatinine [Mass ratio] 12.5 mg/mg Normal [facility] Comment on above: Performed By: #### U RTPCR #### [facility] [address] [place] [address] Dr. Dwight Waters SGOTon 03-02-2023 AST [Catalytic activity/Vol] 20 U/L Normal 15-37 [facility] Comment on above: Performed By: #### U RTPCR #### [facility] [address] [place] [address] Dr. Dwight Waters SGPTon 03-02-2023 ALT [Catalytic activity/Vol] 30 U/L Normal 16-63 [facility] Comment on above: Performed By: #### U RTPCR #### [facility] [address] [place] [address] Dr. Dwight Waters URINE T PROTEIN CREAT RATIOo n 03-02-2023 Protein (U) [Mass/Vol] 10.3 mg/dL Normal <=12.0 [facility] Comment on above: Performed By: #### U RTPCR #### [facility] [address] [place] [address] Dr. Dwight Waters UR PROT CREAT RAT 0.15 Normal [facility] Comment on above: Performed By: #### U RTPCR #### [facility] [address] [place] [address] Dr. Dwight Waters URINE CREAT 68.96 mg/dL Normal 20.00-300.00 [facility] Comment on above: Performed By: #### U RTPCR #### [facility] [address] [place] [address] Dr. Dwight Waters BK VIRUS PCR QUANTon 023 BKV DNA QUANT PCR PLASMA Negative Normal Negative [facility] Comment on above: Result Comment: No B K DNA detected. . The linear range of the assay is 22 - 100,000,000 IU/mL. Performed By: #### C MP #### [facility] [address] [place] [address] Dr. Dwight Waters Log10 BKV DNA Plasma Normal [facility] Comment on above: Performed By: #### C MP #### [facility] [address] [place] [address] Dr. Dwight Waters FK506 (TACROLIMUS) WHOLE BLO ODon 12-31-2022 Tacrolimus (FK506), Blood 5.6 ng/mL Normal 2.0-20.0 [facility] Comment on above: Result Comment: Trou gh (immediately following transplant) 15.0 . Trough (steady state, 2 weeks or more after transplant): 3.0 - 8.0 . Performed by LC-MS/MS technology. Performed By: #### C MP #### [facility] [address] [place] [address] Dr. Dwight Waters ALKALINE PHOSPHAon ALP [Catalytic activity/Vol] 96 U/L Normal 46-116 [facility] Comment on above: Performed By: #### C BC #### [facility] [address] [place] [address] Dr. Dwight Waters BILIRUBIN CONJUGATED (DIRECT )on 12-29-2022 BILI, CONJUGATED 0.3 mg/dL Critically high 0.0-0.2 [facility] Comment on above: Performed By: #### C BC #### [facility] [address] [place] [address] Dr. Dwight Waters BILIRUBIN TOTALon 12-29-2022 Bilirubin [Mass/Vol] 1.1 mg/dL Critically high 0.2-1.0 [facility] Comment on above: Performed By: #### C BC #### [facility] [address] [place] [address] Dr. Dwight Waters CBC AUTO DIFFon 12-29-2022 BASO # 0.1 103/ul Normal 0.0-0.1 [facility] Comment on above: Performed By: #### C MP #### [facility] [address] [place] [address] Dr. Dwight Waters Basophils/100 WBC (Bld) 0.8 % Normal 0.2-2.0 [facility] Comment on above: Performed By: #### C MP #### [facility] [address] [place] [address] Dr. Dwight Waters EO # 0.2 103/ul Normal 0.0-0.7 [facility] Comment on above: Performed By: #### C MP #### [facility] [address] [place] [address] Dr. Dwight Waters Eosinophils/100 WBC (Bld) 3.0 % Normal 0.9-7.0 [facility] Comment on above: Performed By: #### C MP #### [facility] [address] [place] [address] Dr. Dwight Waters Erythrocyte distribution width (RBC) [Ratio] 12.9 % Normal 11.0-15.0 [facility] Comment on above: Performed By: #### C MP #### [facility] [address] [place] [address] Dr. Dwight Waters Hematocrit (Bld) [Volume fraction] 46.9 % Normal 42.0-54.0 [facility] Comment on above: Performed By: #### C MP #### [facility] [address] [place] [address] Dr. Dwight Waters Hemoglobin (Bld) [Mass/Vol] 16.1 g/dL Normal 14.0-18.0 [facility] Comment on above: Performed By: #### C MP #### [facility] [address] [place] [address] Dr. Dwight Waters IG # 0.01 10e3/ul Normal 0.00-0.03 [facility] Comment on above: Performed By: #### C MP #### [facility] [address] [place] [address] Dr. Dwight Waters IG % 0.2 % Normal 0.0-0.5 [facility] Comment on above: Performed By: #### C MP #### [facility] [address] [place] [address] Dr. Dwight Waters LYMPH # 1.8 103/ul Normal 1.2-3.8 [facility] Comment on above: Performed By: #### C MP #### [facility] [address] [place] [address] Dr. Dwight Waters Lymphocytes/100 WBC (Bld) 27.9 % Normal 20.5-60.0 [facility] Comment on above: Performed By: #### C MP #### [facility] [address] [place] [address] Dr. Dwight Waters MANUAL DIFF REQ NO Normal [facility] Comment on above: Performed By: #### C MP #### [facility] [address] [place] [address] Dr. Dwight Waters MCH (RBC) [Entitic mass] 28.5 pg Normal 25.9-34.0 [facility] Comment on above: Performed By: #### C MP #### [facility] [address] [place] [address] Dr. Dwight Waters MCHC (RBC) [Mass/Vol] 34.3 g/dL Normal 29.9-35.2 [facility] Comment on above: Performed By: #### C MP #### [facility] [address] [place] [address] Dr. Dwight Waters MCV (RBC) [Entitic vol] 83.2 fL Normal 80.0-94.0 [facility] Comment on above: Performed By: #### C MP #### [facility] [address] [place] [address] Dr. Dwight Waters MONO # 0.5 103/ul Normal 0.3-0.8 [facility] Comment on above: Performed By: #### C MP #### [facility] [address] [place] [address] Dr. Dwight Waters Monocytes/100 WBC (Bld) 8.1 % Normal 1.7-12.0 [facility] Comment on above: Performed By: #### C MP #### [facility] [address] [place] [address] Dr. Dwight Waters NEUT # 3.8 103/ul Normal 1.4-6.5 [facility] Comment on above: Performed By: #### C MP #### [facility] [address] [place] [address] Dr. Dwight Waters Neutrophils/100 WBC (Bld) 60.0 % Normal 43.0-75.0 [facility] Comment on above: Performed By: #### C MP #### [facility] [address] [place] [address] Dr. Dwight Waters Platelet mean volume (Bld) [Entitic vol] 9.2 fL Critically low 9.5-13.5 [facility] Comment on above: Performed By: #### C MP #### [facility] [address] [place] [address] Dr. Dwight Waters PLT 225 103/ul Normal 150-450 [facility] Comment on above: Performed By: #### C MP #### [facility] [address] [place] [address] Dr. Dwight Waters RBC 5.64 106/ul Normal 4.70-6.10 [facility] Comment on above: Performed By: #### C MP #### [facility] [address] [address] [address] Dwight Waters WBC 6.3 103/ul Normal 4.0-11.0 [facility] Comment on above: Performed By: #### C MP #### [facility] [address] [address] [address] Dwight Waters GGTon 12-29-2022 Gamma glutamyl transferase [Catalytic activity/Vol] 24 U/L Normal 15-85 [facility] Comment on above: Performed By: #### C MP #### [facility] [address] [address] [address] Dwight Waters LIPID PROFILEon 12-29-2022 CHOL-HDL RATIO NORM SEE BELOW Normal [facility] Comment on above: Result Comment: 3.3 - 4.4 LOW RISK 4.4 - 7.1 AVERAGE RISK 7.1 - 11.0 MODERATE RISK >11.0 HIGH RISK Performed By: #### U RTPCR #### [facility] [address] [place] [address] Dr. Dwight Waters Cholesterol [Mass/Vol] 87 mg/dL Normal <=200 [facility] Comment on above: Performed By: #### U RTPCR #### [facility] [address] [place] [address] Dr. Dwight Waters Cholesterol in HDL [Mass/Vol] 44 mg/dL Normal 40-60 [facility] Comment on above: Performed By: #### U RTPCR #### [facility] [address] [address] [address] Dwight Waters Cholesterol in LDL [Mass/Vol] 33.0 mg/dL Normal [facility] Comment on above: Performed By: #### U RTPCR #### [facility] [address] [place] [address] Dr. Dwight Waters Cholesterol.total/Cho lesterol in HDL [Mass ratio] 2.0 {ratio} Normal [facility] Comment on above: Performed By: #### U RTPCR #### [facility] [address] [place] [address] Dr. Dwight Waters HDL NORMAL > or = 60 mg/dl - LO W CARDIOVASCULAR RISK <40 mg/dl - HIGH CARDIOVASCULAR RISK Normal [facility] Comment on above: Performed By: #### U RTPCR #### [facility] [address] [address] [address] Dwight Waters LDL CALC NORMAL SEE BELOW Normal [facility] Comment on above: Result Comment: <100 mg/dl OPTIMAL 100 - 129 mg/dl NEAR OR ABOVE OPTIMAL 130 - 159 mg/dl BORDERLINE HIGH 160 - 189 mg/dl HIGH >190 mg/dl VERY HIGH Performed By: #### U RTPCR #### [facility] [address] [address] [address] Dwight Waters Triglyceride [Mass/Vol] 50 mg/dL Normal <=150 [facility] Comment on above: Performed By: #### U RTPCR #### [facility] [address] [address] [address] Dwight Waters VLDL CALC 10.0 mg/dL Normal [facility] Comment on above: Performed By: #### U RTPCR #### [facility] [address] [address] [address] Dwight Waters MAGNESIUMon 12-29-2022 Magnesium [Mass/Vol] 1.6 mg/dL Critically low 1.8-2.4 [facility] Comment on above: Performed By: #### C BC #### [facility] [address] [address] [address] Dwight Waters RENAL FUNCTION PANELon 12-29 Albumin [Mass/Vol] 3.9 g/dL Normal 3.4-5.0 [facility] Comment on above: Performed By: #### C BC #### [facility] [address] [address] [address] Dwight Waters Calcium [Mass/Vol] 9.2 mg/dL Normal 8.5-10.1 [facility] Comment on above: Performed By: #### C BC #### [facility] [address] [address] [address] Dwight Waters Chloride [Moles/Vol] 109 mmol/L Critically high 98-107 [facility] Comment on above: Performed By: #### C BC #### [facility] [address] [address] [address] Dwight Waters CO2 [Moles/Vol] 27.0 mmol/L Normal 21.0-32.0 [facility] Comment on above: Performed By: #### C BC #### [facility] [address] [address] [address] Dwight Waters Creatinine [Mass/Vol] 1.02 mg/dL Normal 0.70-1.30 [facility] Comment on above: Performed By: #### C BC #### [facility] [address] [address] [address] Dwight Waters EGFR-AF TAJIK >60 Normal >=60 [facility] Comment on above: Performed By: #### C BC #### [facility] [address] [place] [address] Dr. Dwight Waters EGFR-NON AF TAJIK >60 Normal >=60 [facility] Comment on above: Performed By: #### C BC #### [facility] [address] [address] [address] Dwight Waters Glucose [Mass/Vol] 117 mg/dL Critically high 74-106 [facility] Comment on above: Performed By: #### C BC #### [facility] [address] [place] [address] Dr. Dwight Waters Phosphate [Mass/Vol] 3.2 mg/dL Normal 2.6-4.7 [facility] Comment on above: Performed By: #### C BC #### [facility] [address] [place] [address] Dr. Dwight Waters Potassium [Moles/Vol] 4.1 mmol/L Normal 3.5-5.1 [facility] Comment on above: Performed By: #### C BC #### [facility] [address] [address] [address] Dwight Waters Sodium [Moles/Vol] 144 mmol/L Normal 136-145 [facility] Comment on above: Performed By: #### C BC #### [facility] [address] [place] [address] Dr. Dwight Waters Urea nitrogen [Mass/Vol] 13.0 mg/dL Normal 7.0-18.0 [facility] Comment on above: Performed By: #### C BC #### [facility] [address] [place] [address] Dr. Dwight Waters SGOTon 12-29-2022 AST [Catalytic activity/Vol] 21 U/L Normal 15-37 [facility] Comment on above: Performed By: #### C BC #### [facility] [address] [place] [address] Dr. Dwight Waters SGPTon 12-29-2022 ALT [Catalytic activity/Vol] 32 U/L Normal 16-63 [facility] Comment on above: Performed By: #### C BC #### [facility] [address] [place] [address] Dr. Dwight Waters URINE T PROTEIN CREAT RATIOo n 12-29-2022 Protein (U) [Mass/Vol] 14.3 mg/dL Critically high <=12.0 [facility] Comment on above: Performed By: #### U RTPCR #### [facility] [address] [place] [address] Dr. Dwight Waters UR PROT CREAT RAT 0.17 Normal [facility] Comment on above: Performed By: #### U RTPCR #### [facility] [address] [place] [address] Dr. Dwight Waters URINE CREAT 86.58 mg/dL Normal 20.00-300.00 [facility] Comment on above: Performed By: #### U RTPCR #### [facility] [address] [place] [address] Dr. Dwight Waters FK506 (TACROLIMUS) WHOLE BLO ODon 11-06-2022 Tacrolimus (FK506), Blood 4.9 ng/mL Normal 2.0-20.0 [facility] Comment on above: Result Comment: Trou gh (immediately following transplant) 15.0 . Trough (steady state, 2 weeks or more after transplant): 3.0 - 8.0 . Performed by LC-MS/MS technology. Performed By: #### U RTPCR #### [facility] [address] [place] [address] Dr. Dwight Waters ALKALINE PHOSPHAon ALP [Catalytic activity/Vol] 86 U/L Normal 46-116 [facility] Comment on above: Performed By: #### U RTPCR #### [facility] [address] [place] [address] Dr. Dwight Waters BILIRUBIN CONJUGATED (DIRECT )on 11-04-2022 BILI, CONJUGATED 0.2 mg/dL Normal 0.0-0.2 [facility] Comment on above: Performed By: #### U RTPCR #### [facility] [address] [place] [address] Dr. Dwight Waters BILIRUBIN TOTALon 11-04-2022 Bilirubin [Mass/Vol] 0.8 mg/dL Normal 0.2-1.0 [facility] Comment on above: Performed By: #### U RTPCR #### [facility] [address] [place] [address] Dr. Dwight Waters CBC AUTO DIFFon 11-04-2022 BASO # 0.1 103/ul Normal 0.0-0.1 [facility] Comment on above: Performed By: #### U RTPCR #### [facility] [address] [place] [address] Dr. Dwight Waters Basophils/100 WBC (Bld) 0.9 % Normal 0.2-2.0 [facility] Comment on above: Performed By: #### U RTPCR #### [facility] [address] [place] [address] Dr. Dwight Waters EO # 0.2 103/ul Normal 0.0-0.7 [facility] Comment on above: Performed By: #### U RTPCR #### [facility] [address] [place] [address] Dr. Dwight Waters Eosinophils/100 WBC (Bld) 3.7 % Normal 0.9-7.0 [facility] Comment on above: Performed By: #### U RTPCR #### [facility] [address] [place] [address] Dr. Dwight Waters Erythrocyte distribution width (RBC) [Ratio] 12.9 % Normal 11.0-15.0 [facility] Comment on above: Performed By: #### U RTPCR #### [facility] [address] [place] [address] Dr. Dwight Waters Hematocrit (Bld) [Volume fraction] 48.3 % Normal 42.0-54.0 [facility] Comment on above: Performed By: #### U RTPCR #### [facility] [address] [place] [address] Dr. Dwight Waters Hemoglobin (Bld) [Mass/Vol] 15.6 g/dL Normal 14.0-18.0 [facility] Comment on above: Performed By: #### U RTPCR #### [facility] [address] [place] [address] Dr. Dwight Waters IG # 0.01 10e3/ul Normal 0.00-0.03 [facility] Comment on above: Performed By: #### U RTPCR #### [facility] [address] [place] [address] Dr. Dwight Waters IG % 0.2 % Normal 0.0-0.5 [facility] Comment on above: Performed By: #### U RTPCR #### [facility] [address] [place] [address] Dr. Dwight Waters LYMPH # 1.9 103/ul Normal 1.2-3.8 [facility] Comment on above: Performed By: #### U RTPCR #### [facility] [address] [place] [address] Dr. Dwight Waters Lymphocytes/100 WBC (Bld) 33.0 % Normal 20.5-60.0 [facility] Comment on above: Performed By: #### U RTPCR #### [facility] [address] [place] [address] Dr. Dwight Waters MANUAL DIFF REQ NO Normal [facility] Comment on above: Performed By: #### U RTPCR #### [facility] [address] [place] [address] Dr. Dwight Waters MCH (RBC) [Entitic mass] 27.6 pg Normal 25.9-34.0 [facility] Comment on above: Performed By: #### U RTPCR #### [facility] [address] [address] [address] Dwight Waters MCHC (RBC) [Mass/Vol] 32.3 g/dL Normal 29.9-35.2 [facility] Comment on above: Performed By: #### U RTPCR #### [facility] [address] [address] [address] Dwight Waters MCV (RBC) [Entitic vol] 85.5 fL Normal 80.0-94.0 [facility] Comment on above: Performed By: #### U RTPCR #### [facility] [address] [place] [address] Dr. Dwight Waters MONO # 0.5 103/ul Normal 0.3-0.8 [facility] Comment on above: Performed By: #### U RTPCR #### [facility] [address] [place] [address] Dr. Dwight Waters Monocytes/100 WBC (Bld) 8.8 % Normal 1.7-12.0 [facility] Comment on above: Performed By: #### U RTPCR #### [facility] [address] [place] [address] Dr. Dwight Waters NEUT # 3.1 103/ul Normal 1.4-6.5 [facility] Comment on above: Performed By: #### U RTPCR #### [facility] [address] [place] [address] Dr. Dwight Waters Neutrophils/100 WBC (Bld) 53.4 % Normal 43.0-75.0 [facility] Comment on above: Performed By: #### U RTPCR #### [facility] [address] [place] [address] Dr. Dwight Waters Platelet mean volume (Bld) [Entitic vol] 9.2 fL Critically low 9.5-13.5 [facility] Comment on above: Performed By: #### U RTPCR #### [facility] [address] [address] [address] Dwight Waters PLT 255 103/ul Normal 150-450 [facility] Comment on above: Performed By: #### U RTPCR #### [facility] [address] [place] [address] Dr. Dwight Waters RBC 5.65 106/ul Normal 4.70-6.10 [facility] Comment on above: Performed By: #### U RTPCR #### [facility] [address] [place] [address] Dr. Dwight Waters WBC 5.7 103/ul Normal 4.0-11.0 [facility] Comment on above: Performed By: #### U RTPCR #### [facility] [address] [place] [address] Dr. Dwight Waters GGTon 11-04-2022 Gamma glutamyl transferase [Catalytic activity/Vol] 22 U/L Normal 15-85 [facility] Comment on above: Performed By: #### U RTPCR #### [facility] [address] [place] [address] Dr. Dwight Waters MAGNESIUMon 11-04-2022 Magnesium [Mass/Vol] 1.8 mg/dL Normal 1.8-2.4 [facility] Comment on above: Performed By: #### U RTPCR #### [facility] [address] [place] [address] Dr. Dwight Waters RENAL FUNCTION PANELon 11-04 Albumin [Mass/Vol] 3.8 g/dL Normal 3.4-5.0 [facility] Comment on above: Performed By: #### U RTPCR #### [facility] [address] [place] [address] Dr. Dwight Waters Calcium [Mass/Vol] 9.3 mg/dL Normal 8.5-10.1 [facility] Comment on above: Performed By: #### U RTPCR #### [facility] [address] [place] [address] Dr. Dwight Waters Chloride [Moles/Vol] 107 mmol/L Normal 98-107 [facility] Comment on above: Performed By: #### U RTPCR #### [facility] [address] [address] [address] Dwight Waters CO2 [Moles/Vol] 29.2 mmol/L Normal 21.0-32.0 [facility] Comment on above: Performed By: #### U RTPCR #### [facility] [address] [address] [address] Dwight Waters Creatinine [Mass/Vol] 1.07 mg/dL Normal 0.70-1.30 [facility] Comment on above: Performed By: #### U RTPCR #### [facility] [address] [place] [address] Dr. Dwight Waters EGFR-AF TAJIK >60 Normal >=60 [facility] Comment on above: Performed By: #### U RTPCR #### [facility] [address] [place] [address] Dr. Dwight Waters EGFR-NON AF TAJIK >60 Normal >=60 [facility] Comment on above: Performed By: #### U RTPCR #### [facility] [address] [place] [address] Dr. Dwight Waters Glucose [Mass/Vol] 106 mg/dL Normal 74-106 [facility] Comment on above: Performed By: #### U RTPCR #### [facility] [address] [place] [address] Dr. Dwight Waters Phosphate [Mass/Vol] 2.8 mg/dL Normal 2.6-4.7 [facility] Comment on above: Performed By: #### U RTPCR #### [facility] [address] [place] [address] Dr. Dwight Waters Potassium [Moles/Vol] 4.1 mmol/L Normal 3.5-5.1 [facility] Comment on above: Performed By: #### U RTPCR #### [facility] [address] [place] [address] Dr. Dwight Waters Sodium [Moles/Vol] 143 mmol/L Normal 136-145 [facility] Comment on above: Performed By: #### U RTPCR #### [facility] [address] [place] [address] Dr. Dwight Waters Urea nitrogen [Mass/Vol] 12.0 mg/dL Normal 7.0-18.0 [facility] Comment on above: Performed By: #### U RTPCR #### [facility] [address] [place] [address] Dr. Dwight Waters SGOTon 11-04-2022 AST [Catalytic activity/Vol] 19 U/L Normal 15-37 [facility] Comment on above: Performed By: #### U RTPCR #### [facility] [address] [place] [address] Dr. Dwight Waters SGPTon 11-04-2022 ALT [Catalytic activity/Vol] 28 U/L Normal 16-63 [facility] Comment on above: Performed By: #### U RTPCR #### [facility] [address] [place] [address] Dr. Dwight Waters URINE T PROTEIN CREAT RATIOo n 11-04-2022 Protein (U) [Mass/Vol] 10.7 mg/dL Normal <=12.0 [facility] Comment on above: Performed By: #### U RTPCR #### [facility] [address] [place] [address] Dr. Dwight Waters UR PROT CREAT RAT 0.13 Normal [facility] Comment on above: Performed By: #### U RTPCR #### [facility] [address] [place] [address] Dr. Dwight Waters URINE CREAT 84.50 mg/dL Normal 20.00-300.00 [facility] Comment on above: Performed By: #### U RTPCR #### [facility] [address] [place] [address] Dr. Dwight Waters FK506 (TACROLIMUS) WHOLE BLO ODon 09-18-2022 Tacrolimus (FK506), Blood 4.6 ng/mL Normal 2.0-20.0 [facility] Comment on above: Result Comment: Trou gh (immediately following transplant) 15.0 . Trough (steady state, 2 weeks or more after transplant): 3.0 - 8.0 . Performed by LC-MS/MS technology. Performed By: #### U RTPCR #### [facility] [address] [place] [address] Dr. Dwight Waters BK VIRUS PCR QUANTon 022 BKV DNA QUANT PCR PLASMA Negative Normal Negative [facility] Comment on above: Result Comment: No B K DNA detected. . The linear range of the assay is 22 - 100,000,000 IU/mL. Performed By: #### U RTPCR #### [facility] [address] [place] [address] Dr. Dwight Waters Log10 BKV DNA Plasma Normal [facility] Comment on above: Performed By: #### U RTPCR #### [facility] [address] [place] [address] Dr. Dwight Waters ALKALINE PHOSPHAon ALP [Catalytic activity/Vol] 92 U/L Normal 46-116 [facility] Comment on above: Performed By: #### U RTPCR #### [facility] [address] [place] [address] Dr. Dwight Waters BILIRUBIN CONJUGATED (DIRECT )on 09-15-2022 BILI, CONJUGATED 0.3 mg/dL Critically high 0.0-0.2 [facility] Comment on above: Performed By: #### U RTPCR #### [facility] [address] [place] [address] Dr. Dwight Waters BILIRUBIN TOTALon 09-15-2022 Bilirubin [Mass/Vol] 1.1 mg/dL Critically high 0.2-1.0 [facility] Comment on above: Performed By: #### U RTPCR #### [facility] [address] [place] [address] Dr. Dwight Waters CBC AUTO DIFFon 09-15-2022 BASO # 0.1 103/ul Normal 0.0-0.1 [facility] Comment on above: Performed By: #### C BC #### [facility] [address] [place] [address] Dr. Dwight Waters Basophils/100 WBC (Bld) 0.8 % Normal 0.2-2.0 [facility] Comment on above: Performed By: #### C BC #### [facility] [address] [place] [address] Dr. Dwight Waters EO # 0.2 103/ul Normal 0.0-0.7 [facility] Comment on above: Performed By: #### C BC #### [facility] [address] [place] [address] Dr. Dwight Waters Eosinophils/100 WBC (Bld) 3.5 % Normal 0.9-7.0 [facility] Comment on above: Performed By: #### C BC #### [facility] [address] [place] [address] Dr. Dwight Waters Erythrocyte distribution width (RBC) [Ratio] 13.0 % Normal 11.0-15.0 [facility] Comment on above: Performed By: #### C BC #### [facility] [address] [place] [address] Dr. Dwight Waters Hematocrit (Bld) [Volume fraction] 50.0 % Normal 42.0-54.0 [facility] Comment on above: Performed By: #### C BC #### [facility] [address] [place] [address] Dr. Dwight Waters Hemoglobin (Bld) [Mass/Vol] 16.0 g/dL Normal 14.0-18.0 [facility] Comment on above: Performed By: #### C BC #### [facility] [address] [place] [address] Dr. Dwight Waters IG # 0.02 10e3/ul Normal 0.00-0.03 [facility] Comment on above: Performed By: #### C BC #### [facility] [address] [place] [address] Dr. Dwight Waters IG % 0.3 % Normal 0.0-0.5 [facility] Comment on above: Performed By: #### C BC #### [facility] [address] [place] [address] Dr. Dwight Waters LYMPH # 1.8 103/ul Normal 1.2-3.8 [facility] Comment on above: Performed By: #### C BC #### [facility] [address] [place] [address] Dr. Dwight Waters Lymphocytes/100 WBC (Bld) 26.5 % Normal 20.5-60.0 [facility] Comment on above: Performed By: #### C BC #### [facility] [address] [place] [address] Dr. Dwight Waters MANUAL DIFF REQ NO Normal [facility] Comment on above: Performed By: #### C BC #### [facility] [address] [place] [address] Dr. Dwight Waters MCH (RBC) [Entitic mass] 28.1 pg Normal 25.9-34.0 [facility] Comment on above: Performed By: #### C BC #### [facility] [address] [place] [address] Dr. Dwight Waters MCHC (RBC) [Mass/Vol] 32.0 g/dL Normal 29.9-35.2 [facility] Comment on above: Performed By: #### C BC #### [facility] [address] [place] [address] Dr. Dwight Waters MCV (RBC) [Entitic vol] 87.9 fL Normal 80.0-94.0 [facility] Comment on above: Performed By: #### C BC #### [facility] [address] [place] [address] Dr. Dwight Waters MONO # 0.5 103/ul Normal 0.3-0.8 [facility] Comment on above: Performed By: #### C BC #### [facility] [address] [place] [address] Dr. Dwight Waters Monocytes/100 WBC (Bld) 8.1 % Normal 1.7-12.0 [facility] Comment on above: Performed By: #### C BC #### [facility] [address] [place] [address] Dr. Dwight Waters NEUT # 4.0 103/ul Normal 1.4-6.5 [facility] Comment on above: Performed By: #### C BC #### [facility] [address] [place] [address] Dr. Dwight Waters Neutrophils/100 WBC (Bld) 60.8 % Normal 43.0-75.0 [facility] Comment on above: Performed By: #### C BC #### [facility] [address] [place] [address] Dr. Dwight Waters Platelet mean volume (Bld) [Entitic vol] 9.4 fL Critically low 9.5-13.5 [facility] Comment on above: Performed By: #### C BC #### [facility] [address] [place] [address] Dr. Dwight Waters PLT 265 103/ul Normal 150-450 [facility] Comment on above: Performed By: #### C BC #### [facility] [address] [place] [address] Dr. Dwight Waters RBC 5.69 106/ul Normal 4.70-6.10 [facility] Comment on above: Performed By: #### C BC #### [facility] [address] [place] [address] Dr. Dwight Waters WBC 6.6 103/ul Normal 4.0-11.0 [facility] Comment on above: Performed By: #### C BC #### [facility] [address] [place] [address] Dr. Dwight Waters GGTon 09-15-2022 Gamma glutamyl transferase [Catalytic activity/Vol] 23 U/L Normal 15-85 [facility] Comment on above: Performed By: #### U RTPCR #### [facility] [address] [place] [address] Dr. Dwight Waters MAGNESIUMon 09-15-2022 Magnesium [Mass/Vol] 1.8 mg/dL Normal 1.8-2.4 [facility] Comment on above: Performed By: #### U RTPCR #### [facility] [address] [place] [address] Dr. Dwight Waters RENAL FUNCTION PANELon 09-15 Albumin [Mass/Vol] 4.1 g/dL Normal 3.4-5.0 [facility] Comment on above: Performed By: #### C BC #### [facility] [address] [address] [address] Dwight Waters Calcium [Mass/Vol] 9.3 mg/dL Normal 8.5-10.1 [facility] Comment on above: Performed By: #### C BC #### [facility] [address] [address] [address] Dwight Waters Chloride [Moles/Vol] 107 mmol/L Normal 98-107 [facility] Comment on above: Performed By: #### C BC #### [facility] [address] [place] [address] Dr. Dwight Waters CO2 [Moles/Vol] 25.6 mmol/L Normal 21.0-32.0 [facility] Comment on above: Performed By: #### C BC #### [facility] [address] [place] [address] Dr. Dwight Waters Creatinine [Mass/Vol] 1.01 mg/dL Normal 0.70-1.30 [facility] Comment on above: Performed By: #### C BC #### [facility] [address] [place] [address] Dr. Dwight Waters EGFR-AF TAJIK >60 Normal >=60 [facility] Comment on above: Performed By: #### C BC #### [facility] [address] [place] [address] Dr. Dwight Waters EGFR-NON AF TAJIK >60 Normal >=60 [facility] Comment on above: Performed By: #### C BC #### [facility] [address] [place] [address] Dr. Dwight Waters Glucose [Mass/Vol] 119 mg/dL Critically high 74-106 [facility] Comment on above: Performed By: #### C BC #### [facility] [address] [place] [address] Dr. Dwight Waters Phosphate [Mass/Vol] 2.8 mg/dL Normal 2.6-4.7 [facility] Comment on above: Performed By: #### C BC #### [facility] [address] [place] [address] Dr. Dwight Waters Potassium [Moles/Vol] 4.0 mmol/L Normal 3.5-5.1 [facility] Comment on above: Performed By: #### C BC #### [facility] [address] [place] [address] Dr. Dwight Waters Sodium [Moles/Vol] 141 mmol/L Normal 136-145 [facility] Comment on above: Performed By: #### C BC #### [facility] [address] [place] [address] Dr. Dwight Waters Urea nitrogen [Mass/Vol] 15.0 mg/dL Normal 7.0-18.0 [facility] Comment on above: Performed By: #### C BC #### [facility] [address] [place] [address] Dr. Dwight Waters SGOTon 09-15-2022 AST [Catalytic activity/Vol] 18 U/L Normal 15-37 [facility] Comment on above: Performed By: #### U RTPCR #### [facility] [address] [place] [address] Dr. Dwight Waters SGPTon 09-15-2022 ALT [Catalytic activity/Vol] 32 U/L Normal 16-63 [facility] Comment on above: Performed By: #### C BC #### [facility] [address] [place] [address] Dr. Dwight Waters URINE T PROTEIN CREAT RATIOo n 09-15-2022 Protein (U) [Mass/Vol] 14.1 mg/dL Critically high <=12.0 [facility] Comment on above: Performed By: #### U RTPCR #### [facility] [address] [place] [address] Dr. Dwight Waters UR PROT CREAT RAT 0.14 Normal [facility] Comment on above: Performed By: #### U RTPCR #### [facility] [address] [place] [address] Dr. Dwight Waters URINE CREAT 98.89 mg/dL Normal 20.00-300.00 [facility] Comment on above: Performed By: #### U RTPCR #### [facility] [address] [address] [address] Dwight Waters US CAROTID ART BILon [...] Normal [facility] FK506 (TACROLIMUS) WHOLE BLO ODon 08-17-2022 Tacrolimus (FK506), Blood 9.9 ng/mL Normal 2.0-20.0 [facility] Comment on above: Result Comment: Trou gh (immediately following transplant) 15.0 . Trough (steady state, 2 weeks or more after transplant): 3.0 - 8.0 . Performed by LC-MS/MS technology. Performed By: #### F [id number] #### [facility] [address] [place] [address] Dr. Dwight Waters BK VIRUS PCR QUANTon 022 BKV DNA QUANT PCR PLASMA Negative Normal Negative [facility] Comment on above: Result Comment: No B K DNA detected. . The linear range of the assay is 22 - 100,000,000 IU/mL. Performed By: #### U RTPCR #### [facility] [address] [place] [address] Dr. Dwight Waters Log10 BKV DNA Plasma Normal [facility] Comment on above: Performed By: #### U RTPCR #### [facility] [address] [place] [address] Dr. Dwight Waters ALBUMINon 08-14-2022 Albumin [Mass/Vol] 4.2 g/dL Normal 3.4-5.0 [facility] Comment on above: Performed By: #### F [id number] #### [facility] [address] [place] [address] Dr. Dwight Waters ALKALINE PHOSPHAon 2 ALP [Catalytic activity/Vol] 92 U/L Normal 46-116 [facility] Comment on above: Performed By: #### C BC #### [facility] [address] [place] [address] Dr. Dwight Waters BILIRUBIN CONJUGATED (DIRECT )on 08-14-2022 BILI, CONJUGATED 0.3 mg/dL Critically high 0.0-0.2 [facility] Comment on above: Performed By: #### F [id number] #### [facility] [address] [place] [address] Dr. Dwight Waters BILIRUBIN TOTALon 08-14-2022 Bilirubin [Mass/Vol] 1.5 mg/dL Critically high 0.2-1.0 [facility] Comment on above: Performed By: #### F [id number] #### [facility] [address] [place] [address] Dr. Dwight Waters BUNon 08-14-2022 Urea nitrogen [Mass/Vol] 11.0 mg/dL Normal 7.0-18.0 [facility] Comment on above: Performed By: #### C BC #### [facility] [address] [place] [address] Dr. Dwight Waters CALCIUMon 08-14-2022 Calcium [Mass/Vol] 9.4 mg/dL Normal 8.5-10.1 [facility] Comment on above: Performed By: #### F [id number] #### [facility] [address] [place] [address] Dr. Dwight Waters CBC AUTO DIFFon 08-14-2022 BASO # 0.0 103/ul Normal 0.0-0.1 [facility] Comment on above: Performed By: #### C MP #### [facility] [address] [place] [address] Dr. Dwight Waters Basophils/100 WBC (Bld) 0.5 % Normal 0.2-2.0 [facility] Comment on above: Performed By: #### C MP #### [facility] [address] [place] [address] Dr. Dwight Waters EO # 0.2 103/ul Normal 0.0-0.7 [facility] Comment on above: Performed By: #### C MP #### [facility] [address] [place] [address] Dr. Dwight Waters Eosinophils/100 WBC (Bld) 2.6 % Normal 0.9-7.0 [facility] Comment on above: Performed By: #### C MP #### [facility] [address] [place] [address] Dr. Dwight aWters Erythrocyte distribution width (RBC) [Ratio] 13.1 % Normal 11.0-15.0 [facility] Comment on above: Performed By: #### C MP #### [facility] [address] [place] [address] Dr. Dwight Waters Hematocrit (Bld) [Volume fraction] 47.0 % Normal 42.0-54.0 [facility] Comment on above: Performed By: #### C MP #### [facility] [address] [place] [address] Dr. Dwight Waters Hemoglobin (Bld) [Mass/Vol] 15.3 g/dL Normal 14.0-18.0 [facility] Comment on above: Performed By: #### C MP #### [facility] [address] [place] [address] Dr. Dwight Waters IG # 0.01 10e3/ul Normal 0.00-0.03 [facility] Comment on above: Performed By: #### C MP #### [facility] [address] [place] [address] Dr. Dwight Waters IG % 0.1 % Normal 0.0-0.5 [facility] Comment on above: Performed By: #### C MP #### [facility] [address] [place] [address] Dr. Dwight Waters LYMPH # 2.3 103/ul Normal 1.2-3.8 [facility] Comment on above: Performed By: #### C MP #### [facility] [address] [place] [address] Dr. Dwight Waters Lymphocytes/100 WBC (Bld) 29.8 % Normal 20.5-60.0 [facility] Comment on above: Performed By: #### C MP #### [facility] [address] [place] [address] Dr. Dwight Waters MANUAL DIFF REQ NO Normal [facility] Comment on above: Performed By: #### C MP #### [facility] [address] [place] [address] Dr. Dwight Waters MCH (RBC) [Entitic mass] 28.2 pg Normal 25.9-34.0 [facility] Comment on above: Performed By: #### C MP #### [facility] [address] [place] [address] Dr. Dwight Waters MCHC (RBC) [Mass/Vol] 32.6 g/dL Normal 29.9-35.2 [facility] Comment on above: Performed By: #### C MP #### [facility] [address] [place] [address] Dr. Dwight Waters MCV (RBC) [Entitic vol] 86.7 fL Normal 80.0-94.0 [facility] Comment on above: Performed By: #### C MP #### [facility] [address] [place] [address] Dr. Dwight Waters MONO # 0.7 103/ul Normal 0.3-0.8 [facility] Comment on above: Performed By: #### C MP #### [facility] [address] [place] [address] Dr. Dwight Waters Monocytes/100 WBC (Bld) 8.5 % Normal 1.7-12.0 [facility] Comment on above: Performed By: #### C MP #### [facility] [address] [place] [address] Dr. Dwight Waters NEUT # 4.5 103/ul Normal 1.4-6.5 [facility] Comment on above: Performed By: #### C MP #### [facility] [address] [place] [address] Dr. Dwight Waters Neutrophils/100 WBC (Bld) 58.5 % Normal 43.0-75.0 [facility] Comment on above: Performed By: #### C MP #### [facility] [address] [place] [address] Dr. Dwight Waters Platelet mean volume (Bld) [Entitic vol] 9.7 fL Normal 9.5-13.5 [facility] Comment on above: Performed By: #### C MP #### [facility] [address] [place] [address] Dr. Dwight Waters PLT 266 103/ul Normal 150-450 [facility] Comment on above: Performed By: #### C MP #### [facility] [address] [place] [address] Dr. Dwight Waters RBC 5.42 106/ul Normal 4.70-6.10 [facility] Comment on above: Performed By: #### C MP #### [facility] [address] [place] [address] Dr. Dwight Waters WBC 7.6 103/ul Normal 4.0-11.0 [facility] Comment on above: Performed By: #### C MP #### [facility] [address] [place] [address] Dr. Dwight Waters CHLORIDEon 08-14-2022 Chloride [Moles/Vol] 104 mmol/L Normal 98-107 [facility] Comment on above: Performed By: #### C BC #### [facility] [address] [place] [address] Dr. Dwight Waters CO2on 08-14-2022 CO2 [Moles/Vol] 27.9 mmol/L Normal 21.0-32.0 [facility] Comment on above: Performed By: #### C BC #### [facility] [address] [place] [address] Dr. Dwight Waters CREATININEon 08-14-2022 Creatinine [Mass/Vol] 1.08 mg/dL Normal 0.70-1.30 [facility] Comment on above: Performed By: #### C BC #### [facility] [address] [place] [address] Dr. Dwight Waters EGFR-AF TAJIK >60 Normal >=60 [facility] Comment on above: Performed By: #### C BC #### [facility] [address] [place] [address] Dr. Dwight Waters EGFR-NON AF TAJIK >60 Normal >=60 [facility] Comment on above: Performed By: #### C BC #### [facility] [address] [place] [address] Dr. Dwight Waters GGTon 08-14-2022 Gamma glutamyl transferase [Catalytic activity/Vol] 24 U/L Normal 15-85 [facility] Comment on above: Performed By: #### F [id number] #### [facility] [address] [place] [address] Dr. Dwight Waters GLUCOSE BLOODon 08-14-2022 Glucose [Mass/Vol] 111 mg/dL Critically high 74-106 [facility] Comment on above: Performed By: #### C BC #### [facility] [address] [place] [address] Dr. Dwight Waters MAGNESIUMon 08-14-2022 Magnesium [Mass/Vol] 1.4 mg/dL Critically low 1.8-2.4 [facility] Comment on above: Performed By: #### C BC #### [facility] [address] [place] [address] Dr. Dwight Waters NAon 08-14-2022 Sodium [Moles/Vol] 140 mmol/L Normal 136-145 [facility] Comment on above: Performed By: #### F [id number] #### [facility] [address] [place] [address] Dr. Dwight Waters PHOSPHORUSon 08-14-2022 Phosphate [Mass/Vol] 3.1 mg/dL Normal 2.6-4.7 [facility] Comment on above: Performed By: #### C BC #### [facility] [address] [place] [address] Dr. Dwight Waters POTASSIUMon 08-14-2022 Potassium [Moles/Vol] 3.5 mmol/L Normal 3.5-5.1 [facility] Comment on above: Performed By: #### C BC #### [facility] [address] [place] [address] Dr. Dwight Waters SGOTon 08-14-2022 AST [Catalytic activity/Vol] 17 U/L Normal 15-37 [facility] Comment on above: Performed By: #### F [id number] #### [facility] [address] [place] [address] Dr. Dwight Waters SGPTon 08-14-2022 ALT [Catalytic activity/Vol] 22 U/L Normal 16-63 [facility] Comment on above: Performed By: #### F [id number] #### [facility] [address] [place] [address] Dr. Dwight Waters URINE T PROTEIN CREAT RATIOo n 08-14-2022 Protein (U) [Mass/Vol] 10.7 mg/dL Normal <=12.0 [facility] Comment on above: Performed By: #### F [id number] #### [facility] [address] [place] [address] Dr. Dwight Waters UR PROT CREAT RAT 0.10 Normal [facility] Comment on above: Performed By: #### F [id number] #### [facility] [address] [place] [address] Dr. Dwight Waters URINE CREAT 104.28 mg/dL Normal 20.00-300.00 [facility] Comment on above: Performed By: #### F [id number] #### [facility] [address] [place] [address] Dr. Dwight Waters NEPHROSTOMY TUBE REMOVALon 0 [...] Assisting physician present for entire procedure: yes [facility] Radiology Study observation (narrative) [facility] FK506 (TACROLIMUS) WHOLE BLO ODon 07-06-2022 Tacrolimus (FK506), Blood 9.5 ng/mL Normal 2.0-20.0 [facility] Comment on above: Result Comment: Trou gh (immediately following transplant) 15.0 . Trough (steady state, 2 weeks or more after transplant): 3.0 - 8.0 . Performed by LC-MS/MS technology. Performed By: #### C MP #### [facility] [address] [place] [address] Dr. Dwight Waters ALBUMINon 07-03-2022 Albumin [Mass/Vol] 3.7 g/dL Normal 3.4-5.0 [facility] Comment on above: Performed By: #### U RTPCR #### [facility] [address] [place] [address] Dr. Dwight Waters ALKALINE PHOSPHAon ALP [Catalytic activity/Vol] 76 U/L Normal 46-116 [facility] Comment on above: Performed By: #### U RTPCR #### [facility] [address] [place] [address] Dr. Dwight Waters BILIRUBIN CONJUGATED (DIRECT )on 07-03-2022 BILI, CONJUGATED 0.3 mg/dL Critically high 0.0-0.2 [facility] Comment on above: Performed By: #### C BC #### [facility] [address] [place] [address] Dr. Diwght Waters BILIRUBIN TOTALon 07-03-2022 Bilirubin [Mass/Vol] 1.4 mg/dL Critically high 0.2-1.0 [facility] Comment on above: Performed By: #### C BC #### [facility] [address] [place] [address] Dr. Dwight Waters BUNon 07-03-2022 Urea nitrogen [Mass/Vol] 15.0 mg/dL Normal 7.0-18.0 [facility] Comment on above: Performed By: #### C BC #### [facility] [address] [place] [address] Dr. Dwight Waters CALCIUMon 07-03-2022 Calcium [Mass/Vol] 9.4 mg/dL Normal 8.5-10.1 [facility] Comment on above: Performed By: #### U RTPCR #### [facility] [address] [place] [address] Dr. Dwight Waters CBC AUTO DIFFon 07-03-2022 BASO # 0.0 103/ul Normal 0.0-0.1 [facility] Comment on above: Performed By: #### U RTPCR #### [facility] [address] [place] [address] Dr. Dwight Waters Basophils/100 WBC (Bld) 0.6 % Normal 0.2-2.0 [facility] Comment on above: Performed By: #### U RTPCR #### [facility] [address] [place] [address] Dr. Dwight Waters EO # 0.2 103/ul Normal 0.0-0.7 [facility] Comment on above: Performed By: #### U RTPCR #### [facility] [address] [place] [address] Dr. Dwight Waters Eosinophils/100 WBC (Bld) 3.5 % Normal 0.9-7.0 [facility] Comment on above: Performed By: #### U RTPCR #### [facility] [address] [place] [address] Dr. Dwight Waters Erythrocyte distribution width (RBC) [Ratio] 12.9 % Normal 11.0-15.0 [facility] Comment on above: Performed By: #### U RTPCR #### [facility] [address] [place] [address] Dr. Dwight Waters Hematocrit (Bld) [Volume fraction] 44.2 % Normal 42.0-54.0 [facility] Comment on above: Performed By: #### U RTPCR #### [facility] [address] [place] [address] Dr. Dwight Waters Hemoglobin (Bld) [Mass/Vol] 14.6 g/dL Normal 14.0-18.0 [facility] Comment on above: Performed By: #### U RTPCR #### [facility] [address] [place] [address] Dr. Dwight Waters IG # 0.02 10e3/ul Normal 0.00-0.03 [facility] Comment on above: Performed By: #### U RTPCR #### [facility] [address] [place] [address] Dr. Dwight Waters IG % 0.3 % Normal 0.0-0.5 [facility] Comment on above: Performed By: #### U RTPCR #### [facility] [address] [place] [address] Dr. Dwight Waters LYMPH # 2.0 103/ul Normal 1.2-3.8 [facility] Comment on above: Performed By: #### U RTPCR #### [facility] [address] [place] [address] Dr. Dwight Wtaers Lymphocytes/100 WBC (Bld) 28.4 % Normal 20.5-60.0 [facility] Comment on above: Performed By: #### U RTPCR #### [facility] [address] [place] [address] Dr. Dwight Waters MANUAL DIFF REQ NO Normal [facility] Comment on above: Performed By: #### U RTPCR #### [facility] [address] [place] [address] Dr. Dwight Waters MCH (RBC) [Entitic mass] 28.6 pg Normal 25.9-34.0 [facility] Comment on above: Performed By: #### U RTPCR #### [facility] [address] [address] [address] Dwight Waters MCHC (RBC) [Mass/Vol] 33.0 g/dL Normal 29.9-35.2 [facility] Comment on above: Performed By: #### U RTPCR #### [facility] [address] [address] [address] Dwight Waters MCV (RBC) [Entitic vol] 86.7 fL Normal 80.0-94.0 [facility] Comment on above: Performed By: #### U RTPCR #### [facility] [address] [place] [address] Dr. Dwight Waters MONO # 0.6 103/ul Normal 0.3-0.8 [facility] Comment on above: Performed By: #### U RTPCR #### [facility] [address] [place] [address] Dr. Dwight Waters Monocytes/100 WBC (Bld) 9.1 % Normal 1.7-12.0 [facility] Comment on above: Performed By: #### U RTPCR #### [facility] [address] [place] [address] Dr. Dwight Waters NEUT # 4.0 103/ul Normal 1.4-6.5 [facility] Comment on above: Performed By: #### U RTPCR #### [facility] [address] [place] [address] Dr. Dwight Waters Neutrophils/100 WBC (Bld) 58.1 % Normal 43.0-75.0 [facility] Comment on above: Performed By: #### U RTPCR #### [facility] [address] [place] [address] Dr. Dwight Waters Platelet mean volume (Bld) [Entitic vol] 9.5 fL Normal 9.5-13.5 [facility] Comment on above: Performed By: #### U RTPCR #### [facility] [address] [place] [address] Dr. Dwight Waters PLT 292 103/ul Normal 150-450 [facility] Comment on above: Performed By: #### U RTPCR #### [facility] [address] [place] [address] Dr. Dwight Waters RBC 5.10 106/ul Normal 4.70-6.10 [facility] Comment on above: Performed By: #### U RTPCR #### [facility] [address] [place] [address] Dr. Dwight Waters WBC 6.9 103/ul Normal 4.0-11.0 [facility] Comment on above: Performed By: #### U RTPCR #### [facility] [address] [place] [address] Dr. Dwight Waters CHLORIDEon 07-03-2022 Chloride [Moles/Vol] 108 mmol/L Critically high 98-107 [facility] Comment on above: Performed By: #### C BC #### [facility] [address] [place] [address] Dr. Dwight Waters CO2on 07-03-2022 CO2 [Moles/Vol] 25.2 mmol/L Normal 21.0-32.0 [facility] Comment on above: Performed By: #### C BC #### [facility] [address] [place] [address] Dr. Dwight Waters CREATININEon 07-03-2022 Creatinine [Mass/Vol] 1.03 mg/dL Normal 0.70-1.30 [facility] Comment on above: Performed By: #### U RTPCR #### [facility] [address] [place] [address] Dr. Dwight Waters EGFR-AF TAJIK >60 Normal >=60 [facility] Comment on above: Performed By: #### U RTPCR #### [facility] [address] [place] [address] Dr. Dwight Waters EGFR-NON AF TAJIK >60 Normal >=60 [facility] Comment on above: Performed By: #### U RTPCR #### [facility] [address] [place] [address] Dr. Dwight Waters GGTon 07-03-2022 Gamma glutamyl transferase [Catalytic activity/Vol] 31 U/L Normal 15-85 [facility] Comment on above: Performed By: #### U RTPCR #### [facility] [address] [place] [address] Dr. Dwight Waters GLUCOSE BLOODon 07-03-2022 Glucose [Mass/Vol] 119 mg/dL Critically high 74-106 [facility] Comment on above: Performed By: #### U RTPCR #### [facility] [address] [place] [address] Dr. Dwight Waters MAGNESIUMon 07-03-2022 Magnesium [Mass/Vol] 1.4 mg/dL Critically low 1.8-2.4 [facility] Comment on above: Performed By: #### C BC #### [facility] [address] [place] [address] Dr. Dwight Waters NAon 07-03-2022 Sodium [Moles/Vol] 142 mmol/L Normal 136-145 [facility] Comment on above: Performed By: #### C MP #### [facility] [address] [place] [address] Dr. Dwight Waters PHOSPHORUSon 07-03-2022 Phosphate [Mass/Vol] 3.4 mg/dL Normal 2.6-4.7 [facility] Comment on above: Performed By: #### C BC #### [facility] [address] [place] [address] Dr. Dwight Waters POTASSIUMon 07-03-2022 Potassium [Moles/Vol] 4.1 mmol/L Normal 3.5-5.1 [facility] Comment on above: Performed By: #### C BC #### [facility] [address] [place] [address] Dr. Dwight Waters SGOTon 07-03-2022 AST [Catalytic activity/Vol] 14 U/L Critically low 15-37 [facility] Comment on above: Performed By: #### C BC #### [facility] [address] [place] [address] Dr. Dwight Waters SGPTon 07-03-2022 ALT [Catalytic activity/Vol] 25 U/L Normal 16-63 [facility] Comment on above: Performed By: #### C #### [facility] [address] [address] [address] Dwight Waters US KIDNEYSon 07-03-2022 US KIDNEYS Ultrasound kidneys, bilateral HISTORY: Transplant of kidney , pain in the right lower quadrant COMPARISON: None. TECHNIQUE: Transabdominal ultrasound imaging of both kidneys was performed. FINDINGS: The [place] kidneys are diffusely echogenic and atrophic with cortical thinning. The right kidney measures 8.3 x 3.5 x 4.07 m and the left measures 9.9 x 3.8 x 3.6 cm. No hydronephrosis of the [place] kidneys. There is a renal transplant in [...] stone involving the renal transplant. 2. Atrophic [place] kidneys. 3. Normal bladder. Electronically authenticated by: ARCELIA PIZARRO Date: 2022-07-03 17:22 Normal [facility] CT Abdomen and Pelvis WO con traston 06-27-2022 IMPRESSION: 1. Both [place] kidneys are atrophic with improvement in right-sided [...] Adrenals: Adrenal glands are unremarkable. Kidneys: Both [place] kidneys are atrophic. Interval improvement in right [place] kidney hydronephrosis since May 15, 2022. Status [...] Adrenals: Adrenal glands are unremarkable. Kidneys: Both [place] kidneys are atrophic. Interval improvement in right [place] kidney hydronephrosis since May 15, 2022. Status [...] aggressive osseous lesions. IMPRESSION IMPRESSION: 1. Both [place] kidneys are atrophic with improvement in right-sided hydronephrosis since May 15, 2022. 2. 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 No hydronephrosis. No discrete perinephric collection. 3. Partially imaged postsurgical changes related to prior liver transplant. 4. The bladder is decompressed, limiting evaluation. [facility] Radiology Study observation (narrative) [facility] CT Abdomen and Pelvis WO con trastOrdered By: Gera Lu on 06-27-2022 [facility] Work Phone: CBC AUTO DIFFon 06-18-2022 BASO # 0.0 103/ul Normal 0.0-0.1 [facility] Comment on above: Performed By: #### U RTPCR #### [facility] [address] [place] [address] Dr. Dwight Waters Basophils/100 WBC (Bld) 0.5 % Normal 0.2-2.0 [facility] Comment on above: Performed By: #### U RTPCR #### [facility] [address] [place] [address] Dr. Dwight Waters EO # 0.2 103/ul Normal 0.0-0.7 [facility] Comment on above: Performed By: #### U RTPCR #### [facility] [address] [place] [address] Dr. Dwight Waters Eosinophils/100 WBC (Bld) 2.3 % Normal 0.9-7.0 [facility] Comment on above: Performed By: #### U RTPCR #### [facility] [address] [place] [address] Dr. Dwight Waters Erythrocyte distribution width (RBC) [Ratio] 12.9 % Normal 11.0-15.0 [facility] Comment on above: Performed By: #### U RTPCR #### [facility] [address] [place] [address] Dr. Dwight Waters Hematocrit (Bld) [Volume fraction] 41.2 % Critically low 42.0-54.0 [facility] Comment on above: Performed By: #### U RTPCR #### [facility] [address] [place] [address] Dr. Dwight Waters Hemoglobin (Bld) [Mass/Vol] 13.3 g/dL Critically low 14.0-18.0 [facility] Comment on above: Performed By: #### U RTPCR #### [facility] [address] [place] [address] Dr. Dwight Waters IG # 0.04 10e3/ul Critically high 0.00-0.03 [facility] Comment on above: Performed By: #### U RTPCR #### [facility] [address] [place] [address] Dr. Dwight Waters IG % 0.5 % Normal 0.0-0.5 [facility] Comment on above: Performed By: #### U RTPCR #### [facility] [address] [place] [address] Dr. Dwight Waters LYMPH # 2.0 103/ul Normal 1.2-3.8 [facility] Comment on above: Performed By: #### U RTPCR #### [facility] [address] [place] [address] Dr. Dwight Waters Lymphocytes/100 WBC (Bld) 22.9 % Normal 20.5-60.0 [facility] Comment on above: Performed By: #### U RTPCR #### [facility] [address] [place] [address] Dr. Dwight Waters MANUAL DIFF REQ NO Normal [facility] Comment on above: Performed By: #### U RTPCR #### [facility] [address] [place] [address] Dr. Dwight Waters MCH (RBC) [Entitic mass] 28.7 pg Normal 25.9-34.0 [facility] Comment on above: Performed By: #### U RTPCR #### [facility] [address] [place] [address] Dr. Dwight Waters MCHC (RBC) [Mass/Vol] 32.3 g/dL Normal 29.9-35.2 [facility] Comment on above: Performed By: #### U RTPCR #### [facility] [address] [place] [address] Dr. Dwight Waters MCV (RBC) [Entitic vol] 88.8 fL Normal 80.0-94.0 [facility] Comment on above: Performed By: #### U RTPCR #### [facility] [address] [place] [address] Dr. Dwight Waters MONO # 0.8 103/ul Normal 0.3-0.8 [facility] Comment on above: Performed By: #### U RTPCR #### [facility] [address] [place] [address] Dr. Dwight Waters Monocytes/100 WBC (Bld) 9.7 % Normal 1.7-12.0 [facility] Comment on above: Performed By: #### U RTPCR #### [facility] [address] [place] [address] Dr. Dwight Waters NEUT # 5.6 103/ul Normal 1.4-6.5 [facility] Comment on above: Performed By: #### U RTPCR #### [facility] [address] [place] [address] Dr. Dwight Waters Neutrophils/100 WBC (Bld) 64.1 % Normal 43.0-75.0 [facility] Comment on above: Performed By: #### U RTPCR #### [facility] [address] [place] [address] Dr. Dwight Waters Platelet mean volume (Bld) [Entitic vol] 10.0 fL Normal 9.5-13.5 [facility] Comment on above: Performed By: #### U RTPCR #### [facility] [address] [place] [address] Dr. Dwight Waters PLT 270 103/ul Normal 150-450 [facility] Comment on above: Performed By: #### U RTPCR #### [facility] [address] [place] [address] Dr. Dwight Waters RBC 4.64 106/ul Critically low 4.70-6.10 [facility] Comment on above: Performed By: #### U RTPCR #### [facility] [address] [place] [address] Dr. Dwight Waters WBC 8.7 103/ul Normal 4.0-11.0 [facility] Comment on above: Performed By: #### U RTPCR #### [facility] [address] [place] [address] Dr. Dwight Waters CULTURE URINEon 06-18-2022 CULTURE URINE Culture Observations : NO GROWTH. Normal [facility] Comment on above: Performed By: #### U RTPCR #### [facility] [address] [place] [address] Dr. Dwight Waters [facility] SARS-CoV-2 (COVID-19) RNA ESTELITA+probe Ql (Unsp spec) Not detected Normal NOT DETECTED [facility] Comment on above: Result Comment: When diagnostic [...] for this test is supported by the [employer]'s declaration that [...] BC #### [facility] [address] [place] [address] Dr. Dwight Waters ER URINE PROFILEon 2 Bilirubin Ql (U) Negative Normal NEGATIVE [facility] Comment on above: Performed By: #### U RTPCR #### [facility] [address] [place] [address] Dr. Dwight Waters Clarity (U) CLEAR Normal CLEAR [facility] Comment on above: Performed By: #### U RTPCR #### [facility] [address] [place] [address] Dr. Dwight Waters Color (U) YELLOW Normal YELLOW [facility] Comment on above: Performed By: #### U RTPCR #### [facility] [address] [place] [address] Dr. Dwight SHARMA A micrscopic examination will be performed if indicated. Normal [facility] Comment on above: Performed By: #### U RTPCR #### [facility] [address] [place] [address] Dr. Dwight Waters Glucose Ql (U) Negative Normal NEGATIVE [facility] Comment on above: Performed By: #### U RTPCR #### [facility] [address] [place] [address] Dr. Dwight Waters Hemoglobin Ql (U) LARGE Abnormal NEGATIVE [facility] Comment on above: Performed By: #### U RTPCR #### [facility] [address] [place] [address] Dr. Dwight Waters Ketones Ql (U) Negative Normal NEGATIVE [facility] Comment on above: Performed By: #### U RTPCR #### [facility] [address] [place] [address] Dr. Dwight Waters LEUKOCYTES TRACE Abnormal NEGATIVE [facility] Comment on above: Performed By: #### U RTPCR #### [facility] [address] [place] [address] Dr. Dwight Waters Nitrite Ql (U) Negative Normal NEGATIVE [facility] Comment on above: Performed By: #### U RTPCR #### [facility] [address] [place] [address] Dr. Dwight Waters pH (U) 6.0 [pH] Normal 5-9 [facility] Comment on above: Performed By: #### U RTPCR #### [facility] [address] [place] [address] Dr. Dwight Waters Protein (U) [Mass/Vol] 30 mg/dL Abnormal NEGATIVE/ TRACE [facility] Comment on above: Performed By: #### U RTPCR #### [facility] [address] [place] [address] Dr. Dwight Waters SPEC GRAVITY >=1.030 Abnormal 1.005-<=1.025 [facility] Comment on above: Performed By: #### U RTPCR #### [facility] [address] [place] [address] Dr. Dwight Waters UR MICRO IND INDICATED Normal [facility] Comment on above: Performed By: #### U RTPCR #### [facility] [address] [place] [address] Dr. Dwight Waters Urobilinogen Qn (U) 0.2 {Alyssa'U}/dL Normal 0.2 - 1. 0 [facility] Comment on above: Performed By: #### U RTPCR #### [facility] [address] [place] [address] Dr. Dwight Waters PROF 14(COMP METB)on 022 Albumin [Mass/Vol] 3.7 g/dL Normal 3.4-5.0 [facility] Comment on above: Performed By: #### C MP #### [facility] [address] [place] [address] Dr. Dwight Waters Albumin/Globulin [Mass ratio] 0.9 {ratio} Normal [facility] Comment on above: Performed By: #### C MP #### [facility] [address] [place] [address] Dr. Dwight Waters ALP [Catalytic activity/Vol] 80 U/L Normal 46-116 [facility] Comment on above: Performed By: #### C MP #### [facility] [address] [address] [address] Dwight Waters ALT [Catalytic activity/Vol] 24 U/L Normal 16-63 [facility] Comment on above: Performed By: #### C MP #### [facility] [address] [place] [address] Dr. Dwight Waters Anion gap [Moles/Vol] 12.9 mmol/L Normal [facility] Comment on above: Performed By: #### C MP #### [facility] [address] [place] [address] Dr. Dwight Waters AST [Catalytic activity/Vol] 17 U/L Normal 15-37 [facility] Comment on above: Performed By: #### C MP #### [facility] [address] [place] [address] Dr. Dwight Waters Bilirubin [Mass/Vol] 0.8 mg/dL Normal 0.2-1.0 [facility] Comment on above: Performed By: #### C MP #### [facility] [address] [place] [address] Dr. Dwight Waters Calcium [Mass/Vol] 9.4 mg/dL Normal 8.5-10.1 [facility] Comment on above: Performed By: #### C MP #### [facility] [address] [place] [address] Dr. Dwight Waters Chloride [Moles/Vol] 106 mmol/L Normal 98-107 [facility] Comment on above: Performed By: #### C MP #### [facility] [address] [place] [address] Dr. Dwight Waters CO2 [Moles/Vol] 25.3 mmol/L Normal 21.0-32.0 [facility] Comment on above: Performed By: #### C MP #### [facility] [address] [address] [address] Dwight Waters Creatinine [Mass/Vol] 1.29 mg/dL Normal 0.70-1.30 [facility] Comment on above: Performed By: #### C MP #### [facility] [address] [address] [address] Dwight Waters EGFR-AF TAJIK >60 Normal >=60 [facility] Comment on above: Performed By: #### C MP #### [facility] [address] [address] [address] Dwight Waters EGFR-NON AF TAJIK 59 mL/min/1.73m2 Critically low >=60 [facility] Comment on above: Performed By: #### C MP #### [facility] [address] [address] [address] Dwight Waters Globulin (S) [Mass/Vol] 4.2 g/dL Normal [facility] Comment on above: Performed By: #### C MP #### [facility] [address] [address] [address] Dwight Waters Glucose [Mass/Vol] 106 mg/dL Normal 74-106 [facility] Comment on above: Performed By: #### C MP #### [facility] [address] [address] [address] Dwight Waters Potassium [Moles/Vol] 4.2 mmol/L Normal 3.5-5.1 [facility] Comment on above: Performed By: #### C MP #### [facility] [address] [address] [address] Dwight Waters Protein [Mass/Vol] 7.9 g/dL Normal 6.4-8.2 [facility] Comment on above: Performed By: #### C MP #### [facility] [address] [address] [address] Dwight Waters Sodium [Moles/Vol] 140 mmol/L Normal 136-145 [facility] Comment on above: Performed By: #### C MP #### [facility] [address] [place] [address] Dr. Dwight Waters Urea nitrogen [Mass/Vol] 22.0 mg/dL Critically high 7.0-18.0 [facility] Comment on above: Performed By: #### C MP #### [facility] [address] [place] [address] Dr. Dwight Waters Urea nitrogen/Creatinine [Mass ratio] 17.1 mg/mg Normal [facility] Comment on above: Performed By: #### C MP #### [facility] [address] [place] [address] Dr. Dwight Waters URINE MICROSCOPIC ONLYon BACTERIA TRACE Abnormal NONE SEEN [facility] Comment on above: Performed By: #### U RTPCR #### [facility] [address] [place] [address] Dr. Dwight Waters Bacteria identified Cx Nom (U) INDICATED Normal [facility] Comment on above: Performed By: #### U RTPCR #### [facility] [address] [place] [address] Dr. Dwight Waters CAST NONE SEEN Normal NONE SEEN [facility] Comment on above: Performed By: #### U RTPCR #### [facility] [address] [place] [address] Dr. Dwight Waters Crystals LM Nom (Urine sed) NONE SEEN Normal NONE SEEN [facility] Comment on above: Performed By: #### U RTPCR #### [facility] [address] [place] [address] Dr. Dwight Waters Epithelial cells LM Ql (Urine sed) NONE SEEN Normal NONE SEEN /RARE [facility] Comment on above: Performed By: #### U RTPCR #### [facility] [address] [place] [address] Dr. Dwight Waters MUCOUS NONE SEEN Normal NONE SEEN [facility] Comment on above: Performed By: #### U RTPCR #### [facility] [address] [place] [address] Dr. Dwight Waters RBC 5-10 Abnormal 0-2 [facility] Comment on above: Performed By: #### U RTPCR #### [facility] [address] [place], [place] [address] Dr. Dwight Waters WBC 10-20 Abnormal NONE SEEN [facility] Comment on above: Performed By: #### U RTPCR #### [facility] [address] [place], [place] [address] Dr. Dwight Waters ALLOSCREEN RECIPIENT (POST T X PRA)on 06-13-2022 AB SPECIFICITY CLASS COMMENT Antibody Specificity testing performed by [employer]. cPRA calculation based on identification of HLA antibody specificities at MFI >2000 and/or presence of CREG antibodies. [facility] Comment on above: Some of the reagents used for testing in the Clinical Histocompatibility Laboratory have yet to be approved by the FDA. Our certification by CLIA to perform high complexity tests allows us to use these reagents in the context of a stringent QC program, and obviates the need for FDA approval.Testing performed by the [facility] Clinical Histocompatibility Laboratory. [facility] number: [id number]. CLIA number: [id number], Director: Carlito Merchant, PhD, D([facility]). ANTIBODY SPECIFICITY INTERPRETATION Detected [facility] CLASS I SPECIFICITIES Not detected [facility] CLASS II SPECIFICITIES Not detected [facility] HLA Ab (S) 0 % 0 [facility] EXTRA MICROon 06-13-2022 [facility] URINE CULTUREOrdered By: Jah Upton on 06-13-2022 Bacteria identified Cx Nom (Unsp spec) Growth [facility] Bacteria identified Cx Nom (Unsp spec) 10,000-50,000 CFU/mL Mixed skin shimon [facility] Comment on above: Multiple bacterial m orphotypes present. Suggest appropriate recollection if clinically indicated. [facility] CBC,PLATELETSon 06-12-2022 Erythrocyte distribution width (RBC) [Ratio] 13.0 % 10.9 - 14.3 % [facility] Hematocrit (Bld) [Volume fraction] 43.2 % 39.6 - 48.8 % [facility] Hemoglobin (Bld) [Mass/Vol] 13.9 g/dL 13.4 - 16.8 g/dL [facility] Interpretation and review of laboratory results Normal [facility] MCH (RBC) [Entitic mass] 28.7 pg 26.1 - 33.3 pg [facility] MCHC (RBC) [Mass/Vol] 32.2 g/dL 31.9 - 36.5 g/dL [facility] MCV (RBC) [Entitic vol] 89.1 fL 79.0 - 94.5 fL [facility] Platelet mean volume (Bld) [Entitic vol] 10.5 fL 8.7 - 12.3 fL [facility] Platelets (Bld) [#/Vol] 269 10*3/uL 146 - 337 K/uL [facility] RBC (Bld) [#/Vol] 4.85 10*6/uL [facility] WBC (Bld) [#/Vol] 7.68 10*3/uL 3.73 - 10. 10 K/uL [facility] CHEM 7 (LYTES,BUN,CREA,GLUC) on 06-12-2022 Anion gap [Moles/Vol] 14 mmol/L 7 - 17 mmol/L [facility] Chloride [Moles/Vol] 106 mmol/L 98 - 10 8 mmol/L [facility] CO2 [Moles/Vol] 25 mmol/L 21 - 31 mmol/L [facility] Creatinine [Mass/Vol] 1.26 mg/dL 0.70 - 1.30 mg/dL [facility] GFR/1.73 sq M.predicted CKD-EPI (S/P/Bld) [Vol rate/Area] 69 >=60 mL/min/1.73m2 [facility] Comment on above: Reported eGFR is bas ed on the CKD-EPI 2020 equation using creatinine, age, and sex. Glucose [Mass/Vol] 83 mg/dL 70 - 99 mg/dL [facility] Osmolality Calc [Osmolality] [address] [facility] Potassium [Moles/Vol] 3.8 mmol/L 3.5 - 5.0 mmol/L [facility] Sodium [Moles/Vol] 141 mmol/L 135 - 145 mmol/L [facility] Urea nitrogen [Mass/Vol] 18 mg/dL 7 - 25 mg/dL [facility] Urea nitrogen/Creatinine [Mass ratio] 14 mg/mg [facility] GGTon 06-12-2022 Gamma glutamyl transferase [Catalytic activity/Vol] 20 U/L 8 - 64 U/L [facility] HEMOGLOBIN [id number] By: [employer] on 06-12-2022 Average glucose Estimated from glycated hemoglobin (Bld) [Mass/Vol] 126 mg/dL [facility] HbA1c (Bld) [Mass fraction] 6.0 % High 4.7 - 5.6 % [facility] Interpretation and review of laboratory results Abnormal [facility] HEPATIC FUNCTION PANELon Albumin [Mass/Vol] 4.3 g/dL 3.5 - 5.0 g/dL [facility] ALP [Catalytic activity/Vol] 78 U/L 32 - 126 U/L [facility] ALT [Catalytic activity/Vol] 12 U/L 10 - 52 U/L [facility] AST [Catalytic activity/Vol] 16 U/L 10 - 39 U/L [facility] Bilirubin [Mass/Vol] 1.0 mg/dL <1.5 [facility] Bilirubin.direct [Mass/Vol] 0.2 mg/dL <0.3 [facility] Protein [Mass/Vol] 7.5 g/dL 6.4 - 8.3 g/dL [facility] No Panel Informationon 06-12 Interpretation and review of laboratory results Normal [facility] PTH INTACTOrdered By: Marli Lizarraga on 06-12-2022 Interpretation and review of laboratory results Abnormal [facility] Parathyrin.intact [Mass/Vol] 79.7 pg/mL High 14.0 - 72.0 pg/mL [facility] URINALYSIS REFLEX TO CULTURE PERFORMABLEon 06-12-2022 Appearance (U) Clear Clear [facility] Bacteria LM Ql (Urine sed) ABSENT ABSENT [facility] Color (U) Yellow Yellow [facility] Epithelial cells.squamous LM Ql (Urine sed) 1/hpf = 1+ 1/hpf = 1+, 2-5/hpf = 2+, 0/hpf = 0+, ABSENT [facility] Glucose Test strip (U) [Mass/Vol] Negative Negative [facility] Interpretation and review of laboratory results Abnormal [facility] Ketones (U) [Mass/Vol] Trace Abnormal Negative [facility] Leukocyte esterase Test strip Ql (U) Small Abnormal Negative [facility] Nitrite Ql (U) Negative Negative [facility] pH (U) 5.5 [pH] 5.0 - 7.0 [facility] Protein (U) [Mass/Vol] 30 mg/dL Abnormal Negative [facility] RBC (U) [#/Vol] Trace Abnormal Negative [facility] RBC LM.HPF (Urine sed) [#/Area] 0-2 0 - 2 /HPF [facility] Specific gravity (U) [Rel density] 1.026 [facility] Urobilinogen (U) [Mass/Vol] 0.2 E.U./dL 0.2 E.U/dL, 1.0 E.U/dL [facility] WBC LM.HPF (Urine sed) [#/Area] 10-20 Abnormal 0 - 5 /HPF [facility] URINE PROTEIN/CREA RATIO, RA NDOMon 06-12-2022 Creatinine (24H U) [Mass/Vol] 231.68 mg/dL [facility] Protein Unsp time (U) [Mass/Vol] 49 mg/dL [facility] Protein/Creatinine (U) [Mass ratio] 0.211 mg/g [facility] FK506 (TACROLIMUS) WHOLE BLO ODon 06-09-2022 Tacrolimus (FK506), Blood 9.8 ng/mL Normal 2.0-20.0 [facility] Comment on above: Result Comment: Trou gh (immediately following transplant) 15.0 . Trough (steady state, 2 weeks or more after transplant): 3.0 - 8.0 . Performed by LC-MS/MS technology. Performed By: #### U RTPCR #### [facility] [address] [place] [address] Dr. Dwight Waters ALBUMINon 06-06-2022 Albumin [Mass/Vol] 3.8 g/dL Normal 3.4-5.0 [facility] Comment on above: Performed By: #### C MP #### [facility] [address] [place] [address] Dr. Dwight Waters ALKALINE PHOSPHAon ALP [Catalytic activity/Vol] 82 U/L Normal 46-116 [facility] Comment on above: Performed By: #### C MP #### [facility] [address] [place] [address] Dr. Dwight Waters BILIRUBIN CONJUGATED (DIRECT )on 06-06-2022 BILI, CONJUGATED 0.2 mg/dL Normal 0.0-0.2 [facility] Comment on above: Performed By: #### C BC #### [facility] [address] [place] [address] Dr. Dwight Waters BILIRUBIN TOTALon 06-06-2022 Bilirubin [Mass/Vol] 1.0 mg/dL Normal 0.2-1.0 [facility] Comment on above: Performed By: #### C BC #### [facility] [address] [place] [address] Dr. Dwight Waters BUNon 06-06-2022 Urea nitrogen [Mass/Vol] 18.0 mg/dL Normal 7.0-18.0 [facility] Comment on above: Performed By: #### C BC #### [facility] [address] [place] [address] Dr. Dwight Waters CALCIUMon 06-06-2022 Calcium [Mass/Vol] 9.4 mg/dL Normal 8.5-10.1 [facility] Comment on above: Performed By: #### C MP #### [facility] [address] [address] [address] Dwight Waters CBC AUTO DIFFon 06-06-2022 BASO # 0.1 103/ul Normal 0.0-0.1 [facility] Comment on above: Performed By: #### U RTPCR #### [facility] [address] [place] [address] Dr. Dwight Waters Basophils/100 WBC (Bld) 0.8 % Normal 0.2-2.0 [facility] Comment on above: Performed By: #### U RTPCR #### [facility] [address] [place] [address] Dr. Dwight Waters EO # 0.3 103/ul Normal 0.0-0.7 [facility] Comment on above: Performed By: #### U RTPCR #### [facility] [address] [place] [address] Dr. Dwight Waters Eosinophils/100 WBC (Bld) 3.3 % Normal 0.9-7.0 [facility] Comment on above: Performed By: #### U RTPCR #### [facility] [address] [place] [address] Dr. Dwight Waters Erythrocyte distribution width (RBC) [Ratio] 12.4 % Normal 11.0-15.0 [facility] Comment on above: Performed By: #### U RTPCR #### [facility] [address] [place] [address] Dr. Dwight Waters Hematocrit (Bld) [Volume fraction] 45.1 % Normal 42.0-54.0 [facility] Comment on above: Performed By: #### U RTPCR #### [facility] [address] [place] [address] Dr. Dwight Waters Hemoglobin (Bld) [Mass/Vol] 14.4 g/dL Normal 14.0-18.0 [facility] Comment on above: Performed By: #### U RTPCR #### [facility] [address] [place] [address] Dr. Dwight Waters IG # 0.01 10e3/ul Normal 0.00-0.03 [facility] Comment on above: Performed By: #### U RTPCR #### [facility] [address] [place] [address] Dr. Dwight Waters IG % 0.1 % Normal 0.0-0.5 [facility] Comment on above: Performed By: #### U RTPCR #### [facility] [address] [place] [address] Dr. Dwight Waters LYMPH # 2.2 103/ul Normal 1.2-3.8 [facility] Comment on above: Performed By: #### U RTPCR #### [facility] [address] [place] [address] Dr. Dwight Waters Lymphocytes/100 WBC (Bld) 30.0 % Normal 20.5-60.0 [facility] Comment on above: Performed By: #### U RTPCR #### [facility] [address] [place] [address] Dr. Dwight Waters MANUAL DIFF REQ NO Normal [facility] Comment on above: Performed By: #### U RTPCR #### [facility] [address] [place] [address] Dr. Dwight Waters MCH (RBC) [Entitic mass] 28.2 pg Normal 25.9-34.0 [facility] Comment on above: Performed By: #### U RTPCR #### [facility] [address] [place] [address] Dr. Dwight Waters MCHC (RBC) [Mass/Vol] 31.9 g/dL Normal 29.9-35.2 [facility] Comment on above: Performed By: #### U RTPCR #### [facility] [address] [place] [address] Dr. Dwight Waters MCV (RBC) [Entitic vol] 88.3 fL Normal 80.0-94.0 [facility] Comment on above: Performed By: #### U RTPCR #### [facility] [address] [place] [address] Dr. Dwight Waters MONO # 0.6 103/ul Normal 0.3-0.8 [facility] Comment on above: Performed By: #### U RTPCR #### [facility] [address] [place] [address] Dr. Dwight Waters Monocytes/100 WBC (Bld) 8.2 % Normal 1.7-12.0 [facility] Comment on above: Performed By: #### U RTPCR #### [facility] [address] [place] [address] Dr. Dwight Waters NEUT # 4.3 103/ul Normal 1.4-6.5 [facility] Comment on above: Performed By: #### U RTPCR #### [facility] [address] [place] [address] Dr. Dwight Waters Neutrophils/100 WBC (Bld) 57.6 % Normal 43.0-75.0 [facility] Comment on above: Performed By: #### U RTPCR #### [facility] [address] [place] [address] Dr. Dwight Waters Platelet mean volume (Bld) [Entitic vol] 9.7 fL Normal 9.5-13.5 [facility] Comment on above: Performed By: #### U RTPCR #### [facility] [address] [place] [address] Dr. Dwight Waters PLT 297 103/ul Normal 150-450 [facility] Comment on above: Performed By: #### U RTPCR #### [facility] [address] [place] [address] Dr. Dwight Waters RBC 5.11 106/ul Normal 4.70-6.10 [facility] Comment on above: Performed By: #### U RTPCR #### [facility] [address] [place] [address] Dr. Dwight Waters WBC 7.5 103/ul Normal 4.0-11.0 [facility] Comment on above: Performed By: #### U RTPCR #### [facility] [address] [place] [address] Dr. Dwight Waters CHLORIDEon 06-06-2022 Chloride [Moles/Vol] 107 mmol/L Normal 98-107 [facility] Comment on above: Performed By: #### C BC #### [facility] [address] [address] [address] Dwight Waters CO2on 06-06-2022 CO2 [Moles/Vol] 27.4 mmol/L Normal 21.0-32.0 [facility] Comment on above: Performed By: #### C BC #### [facility] [address] [address] [address] Dwight Waters CREATININEon 06-06-2022 Creatinine [Mass/Vol] 1.20 mg/dL Normal 0.70-1.30 [facility] Comment on above: Performed By: #### C BC #### [facility] [address] [address] [address] Dwight Waters EGFR-AF TAJIK >60 Normal >=60 [facility] Comment on above: Performed By: #### C BC #### [facility] [address] [place] [address] Dr. Dwight Waters EGFR-NON AF TAJIK >60 Normal >=60 [facility] Comment on above: Performed By: #### C BC #### [facility] [address] [place] [address] Dr. Dwight Waters GGTon 06-06-2022 Gamma glutamyl transferase [Catalytic activity/Vol] 29 U/L Normal 15-85 [facility] Comment on above: Performed By: #### C BC #### [facility] [address] [address] [address] Dwight Waters GLUCOSE BLOODon 06-06-2022 Glucose [Mass/Vol] 112 mg/dL Critically high 74-106 [facility] Comment on above: Performed By: #### C BC #### [facility] [address] [place] [address] Dr. Dwight Waters MAGNESIUMon 06-06-2022 Magnesium [Mass/Vol] 1.3 mg/dL Critically low 1.8-2.4 [facility] Comment on above: Performed By: #### C MP #### [facility] [address] [place] [address] Dr. Dwight Waters NAon 06-06-2022 Sodium [Moles/Vol] 141 mmol/L Normal 136-145 [facility] Comment on above: Performed By: #### C MP #### [facility] [address] [place] [address] Dr. Dwight Waters PHOSPHORUSon 06-06-2022 Phosphate [Mass/Vol] 3.1 mg/dL Normal 2.6-4.7 [facility] Comment on above: Performed By: #### C MP #### [facility] [address] [place] [address] Dr. Dwight Waters POTASSIUMon 06-06-2022 Potassium [Moles/Vol] 4.3 mmol/L Normal 3.5-5.1 [facility] Comment on above: Performed By: #### C BC #### [facility] [address] [place] [address] Dr. Dwight Waters SGOTon 06-06-2022 AST [Catalytic activity/Vol] 16 U/L Normal 15-37 [facility] Comment on above: Performed By: #### C BC #### [facility] [address] [place] [address] Dr. Dwight Waters SGPTon 06-06-2022 ALT [Catalytic activity/Vol] 50 U/L Normal 16-63 [facility] Comment on above: Performed By: #### C BC #### [facility] [address] [place] [address] Dr. Dwight Watres Bacteria identified Cx Nom ( Bld)on 05-21-2022 Bacteria identified Cx Nom (Unsp spec) NO GROWTH DAY 5 OF 5 [facility] Results may be compromised due to volume of BACT\ALERT bottle exceeding 10mLs . The optimal blood volume is 8-10 mls per aerobic/anaerobic blood culture bottle. [facility] CALCIUMon 05-20-2022 Calcium [Mass/Vol] 9.1 mg/dL 8.6 - 10. 5 mg/dL [facility] CBC,PLATELETSon 05-20-2022 Erythrocyte distribution width (RBC) [Ratio] 12.5 % 10.9 - 14.3 % [facility] Hematocrit (Bld) [Volume fraction] 37.1 % Low 39.6 - 48.8 % [facility] Hemoglobin (Bld) [Mass/Vol] 12.3 g/dL Low 13.4 - 16.8 g/dL [facility] Interpretation and review of laboratory results Abnormal [facility] MCH (RBC) [Entitic mass] 28.9 pg 26.1 - 33.3 pg [facility] MCHC (RBC) [Mass/Vol] 33.2 g/dL 31.9 - 36.5 g/dL [facility] MCV (RBC) [Entitic vol] 87.3 fL 79.0 - 94.5 fL [facility] Platelet mean volume (Bld) [Entitic vol] 9.9 fL 8.7 - 12.3 fL [facility] Platelets (Bld) [#/Vol] 234 10*3/uL 146 - 337 K/uL [facility] RBC (Bld) [#/Vol] 4.25 10*6/uL Low [facility] WBC (Bld) [#/Vol] 6.31 10*3/uL 3.73 - 10. 10 K/uL [facility] CHEM 7 (LYTES,BUN,CREA,GLUC) on 05-20-2022 Anion gap [Moles/Vol] 15 mmol/L 7 - 17 mmol/L [facility] Chloride [Moles/Vol] 111 mmol/L High 98 - 10 8 mmol/L [facility] CO2 [Moles/Vol] 22 mmol/L 21 - 31 mmol/L [facility] Creatinine [Mass/Vol] 1.10 mg/dL 0.70 - 1.30 mg/dL [facility] GFR/1.73 sq M.predicted CKD-EPI (S/P/Bld) [Vol rate/Area] 81 >=60 mL/min/1.73m2 [facility] Comment on above: Reported eGFR is bas ed on the CKD-EPI 2020 equation using creatinine, age, and sex. Glucose [Mass/Vol] 92 mg/dL 70 - 99 mg/dL [facility] Interpretation and review of laboratory results Abnormal [facility] Osmolality Calc [Osmolality] 302 [facility] Potassium [Moles/Vol] 4.4 mmol/L 3.5 - 5.0 mmol/L [facility] Sodium [Moles/Vol] 144 mmol/L 135 - 145 mmol/L [facility] Urea nitrogen [Mass/Vol] 18 mg/dL 7 - 25 mg/dL [facility] Urea nitrogen/Creatinine [Mass ratio] 16 mg/mg [facility] MAGNESIUMon 05-20-2022 Interpretation and review of laboratory results Abnormal [facility] Magnesium [Mass/Vol] 1.5 mg/dL Low 1.6 - 2 .6 mg/dL [facility] No Panel Informationon 05-20 Interpretation and review of laboratory results Normal [facility] PHOSPHATE, INORGANICon 05-20 Phosphate [Mass/Vol] 3.3 mg/dL 2.2 - 4 .6 mg/dL [facility] RF Unspecified body region V iews during [...] projections of kidneys, ureters, and bladder. FINDINGS: Ammonium Sulfate Operator images: Ammonium Sulfate Operator radiographs of the abdomen reveal a nonobstructive [...] Contrast refluxes up the ureter to the [place] right kidney that is grossly normal appearing. [...] projections of kidneys, ureters, and bladder. FINDINGS: Ammonium Sulfate Operator images: Ammonium Sulfate Operator radiographs of the abdomen reveal a nonobstructive [...] Contrast refluxes up the ureter to the [place] right kidney that is grossly normal appearing. [...] I have reviewed and approved this report. [facility] Radiology Study observation (narrative) [facility] RF Unspecified body region V iews during surgeryOrdered By: Lizz Campos on 05-20-2022 [facility] Work Phone: CALCIUMon 05-19-2022 Calcium [Mass/Vol] 9.2 mg/dL 8.6 - 10. 5 mg/dL [facility] Calcium [Mass/Vol] 8.6 mg/dL 8.6 - 10. 5 mg/dL [facility] CBC,PLATELETSon 05-19-2022 Erythrocyte distribution width (RBC) [Ratio] 12.4 % 10.9 - 14.3 % [facility] Hematocrit (Bld) [Volume fraction] 38.0 % Low 39.6 - 48.8 % [facility] Hemoglobin (Bld) [Mass/Vol] 12.0 g/dL Low 13.4 - 16.8 g/dL [facility] Interpretation and review of laboratory results Abnormal [facility] MCH (RBC) [Entitic mass] 28.6 pg 26.1 - 33.3 pg [facility] MCHC (RBC) [Mass/Vol] 31.6 g/dL Low 31.9 - 36.5 g/dL [facility] MCV (RBC) [Entitic vol] 90.5 fL 79.0 - 94.5 fL [facility] Platelet mean volume (Bld) [Entitic vol] 9.7 fL 8.7 - 12.3 fL [facility] Platelets (Bld) [#/Vol] 199 10*3/uL 146 - 337 K/uL [facility] RBC (Bld) [#/Vol] 4.20 10*6/uL [facility] (Bld[facility] [#/Vol] 6.81 10*3/uL 3.73 - 10. 10 K/uL [facility] CHEM 7 (LYTES,BUN,CREA,GLUC) on 05-19-2022 Anion gap [Moles/Vol] 13 mmol/L 7 - 17 mmol/L [facility] Chloride [Moles/Vol] 105 mmol/L 98 - 10 8 mmol/L [facility] CO2 [Moles/Vol] 30 mmol/L 21 - 31 mmol/L [facility] Creatinine [Mass/Vol] 1.39 mg/dL High 0.70 - 1.30 mg/dL [facility] GFR/1.73 sq M.predicted CKD-EPI (S/P/Bld) [Vol rate/Area] 61 >=60 mL/min/1.73m2 [facility] Comment on above: Reported eGFR is bas ed on the CKD-EPI 2020 equation using creatinine, age, and sex. Glucose [Mass/Vol] 121 mg/dL High 70 - 99 mg/dL [facility] Interpretation and review of laboratory results Abnormal [facility] Osmolality Calc [Osmolality] 303 [facility] Potassium [Moles/Vol] 3.8 mmol/L 3.5 - 5.0 mmol/L [facility] Sodium [Moles/Vol] 144 mmol/L 135 - 145 mmol/L [facility] Urea nitrogen [Mass/Vol] 18 mg/dL 7 - 25 mg/dL [facility] Urea nitrogen/Creatinine [Mass ratio] 13 mg/mg [facility] Anion gap [Moles/Vol] 15 mmol/L 7 - 17 mmol/L [facility] Chloride [Moles/Vol] 106 mmol/L 98 - 10 8 mmol/L [facility] CO2 [Moles/Vol] 24 mmol/L 21 - 31 mmol/L [facility] Creatinine [Mass/Vol] 1.46 mg/dL High 0.70 - 1.30 mg/dL [facility] GFR/1.73 sq M.predicted CKD-EPI (S/P/Bld) [Vol rate/Area] 58 Low >=60 mL/min/1.73m2 [facility] Comment on above: Reported eGFR is bas ed on the CKD-EPI 2020 equation using creatinine, age, and sex. Glucose [Mass/Vol] 103 mg/dL High 70 - 99 mg/dL [facility] Interpretation and review of laboratory results Abnormal [facility] Osmolality Calc [Osmolality] 298 [facility] Potassium [Moles/Vol] 3.9 mmol/L 3.5 - 5.0 mmol/L [facility] Sodium [Moles/Vol] 141 mmol/L 135 - 145 mmol/L [facility] Urea nitrogen [Mass/Vol] 21 mg/dL 7 - 25 mg/dL [facility] Urea nitrogen/Creatinine [Mass ratio] 14 mg/mg [facility] MAGNESIUMon 05-19-2022 Magnesium [Mass/Vol] 2.0 mg/dL 1.6 - 2 .6 mg/dL [facility] Magnesium [Mass/Vol] 1.7 mg/dL 1.6 - 2 .6 mg/dL [facility] No Panel Informationon 05-19 Interpretation and review of laboratory results Normal [facility] Interpretation and review of laboratory results Normal [facility] PHOSPHATE, INORGANICon 05-19 Phosphate [Mass/Vol] 3.0 mg/dL 2.2 - 4 .6 mg/dL [facility] Phosphate [Mass/Vol] 2.7 mg/dL 2.2 - 4 .6 mg/dL [facility] CALCIUMon 05-18-2022 Calcium [Mass/Vol] 9.1 mg/dL 8.6 - 10. 5 mg/dL [facility] CBC,PLATELETSon 05-18-2022 Erythrocyte distribution width (RBC) [Ratio] 12.5 % 10.9 - 14.3 % [facility] Hematocrit (Bld) [Volume fraction] 37.3 % Low 39.6 - 48.8 % [facility] Hemoglobin (Bld) [Mass/Vol] 11.9 g/dL Low 13.4 - 16.8 g/dL [facility] Interpretation and review of laboratory results Abnormal [facility] MCH (RBC) [Entitic mass] 28.9 pg 26.1 - 33.3 pg [facility] MCHC (RBC) [Mass/Vol] 31.9 g/dL 31.9 - 36.5 g/dL [facility] MCV (RBC) [Entitic vol] 90.5 fL 79.0 - 94.5 fL [facility] Platelet mean volume (Bld) [Entitic vol] 10.1 fL 8.7 - 12.3 fL [facility] Platelets (Bld) [#/Vol] 189 10*3/uL 146 - 337 K/uL [facility] RBC (Bld) [#/Vol] 4.12 10*6/uL Low [facility] WBC (Bld) [#/Vol] 10.19 10*3/uL High 3.73 - 10 .10 K/uL [facility] CHEM 7 (LYTES,BUN,CREA,GLUC) on 05-18-2022 Anion gap [Moles/Vol] 13 mmol/L 7 - 17 mmol/L [facility] Chloride [Moles/Vol] 102 mmol/L 98 - 10 8 mmol/L [facility] CO2 [Moles/Vol] 26 mmol/L 21 - 31 mmol/L [facility] Creatinine [Mass/Vol] 1.91 mg/dL High 0.70 - 1.30 mg/dL [facility] GFR/1.73 sq M.predicted CKD-EPI (S/P/Bld) [Vol rate/Area] 42 Low >=60 mL/min/1.73m2 [facility] Comment on above: Reported eGFR is bas ed on the CKD-EPI 2020 equation using creatinine, age, and sex. Glucose [Mass/Vol] 158 mg/dL High 70 - 99 mg/dL [facility] Osmolality Calc [Osmolality] [address] [facility] [facility] Potassium [Moles/Vol] 4.0 mmol/L 3.5 - 5.0 mmol/L [facility] Sodium [Moles/Vol] 137 mmol/L 135 - 145 mmol/L [facility] Urea nitrogen [Mass/Vol] 30 mg/dL High 7 - 25 mg/[facility] Urea nitrogen/Creatinine [Mass ratio] 16 mg/mg [facility] CHEM 7 (LYTES,BUN,CREA,GLUC) Ordered By: Tamiko Thapa on 05-18-2022 Anion gap [Moles/Vol] 13 mmol/L 7 - 17 mmol/L [facility] Chloride [Moles/Vol] 104 mmol/L 98 - 10 8 mmol/L [facility] CO2 [Moles/Vol] 26 mmol/L 21 - 31 mmol/L [facility] Creatinine [Mass/Vol] 2.96 mg/dL High 0.70 - 1.30 mg/dL [facility] GFR/1.73 sq M.predicted CKD-EPI (S/P/Bld) [Vol rate/Area] 25 Low >=60 mL/min/1.73m2 [facility] Comment on above: Reported eGFR is bas ed on the CKD-EPI 2020 equation using creatinine, age, and sex. Glucose [Mass/Vol] 136 mg/dL High 70 - 99 mg/dL [facility] Interpretation and review of laboratory results Abnormal [facility] Osmolality Calc [Osmolality] [address] [facility] Potassium [Moles/Vol] 4.2 mmol/L 3.5 - 5.0 mmol/L [facility] Sodium [Moles/Vol] 139 mmol/L 135 - 145 mmol/L [facility] Urea nitrogen [Mass/Vol] 41 mg/dL High 7 - 25 mg/dL [facility] Urea nitrogen/Creatinine [Mass ratio] 14 mg/mg [facility] MAGNESIUMon 05-18-2022 Magnesium [Mass/Vol] 2.2 mg/dL 1.6 - 2 .6 mg/dL [facility] Interpretation and review of laboratory results Normal [facility] Magnesium [Mass/Vol] 1.7 mg/dL 1.6 - 2 .6 mg/dL [facility] No Panel Informationon 05-18 Interpretation and review of laboratory results Abnormal [facility] Interpretation and review of laboratory results Normal [facility] PHOSPHATE, INORGANICon 05-18 Phosphate [Mass/Vol] 2.0 mg/dL Low 2.2 - 4 .6 mg/dL [facility] Interpretation and review of laboratory results Normal [facility] Phosphate [Mass/Vol] 2.8 mg/dL 2.2 - 4 .6 mg/dL [facility] PT,INR,PTTon 05-18-2022 aPTT Coag (PPP) [Time] 31.0 s [facility] INR Coag (Bld) [Relative time] 1.1 {INR} [facility] Interpretation and review of laboratory results Abnormal [facility] PT Coag (PPP) [Time] 14.4 s High [facility] URINE CULTUREOrdered By: Sylvia Campos on 05-18-2022 Bacteria identified Cx Nom (Unsp spec) No Growth [facility] CBC,PLATELETSon 05-17-2022 Erythrocyte distribution width (RBC) [Ratio] 12.8 % 10.9 - 14.3 % [facility] Hematocrit (Bld) [Volume fraction] 42.8 % 39.6 - 48.8 % [facility] Hemoglobin (Bld) [Mass/Vol] 13.3 g/dL Low 13.4 - 16.8 g/dL [facility] Interpretation and review of laboratory results Abnormal [facility] MCH (RBC) [Entitic mass] 28.9 pg 26.1 - 33.3 pg [facility] MCHC (RBC) [Mass/Vol] 31.1 g/dL Low 31.9 - 36.5 g/dL [facility] MCV (RBC) [Entitic vol] 92.8 fL 79.0 - 94.5 fL [facility] Platelet mean volume (Bld) [Entitic vol] 10.3 fL 8.7 - 12.3 fL [facility] Platelets (Bld) [#/Vol] 188 10*3/uL 146 - 337 K/uL [facility] RBC (Bld) [#/Vol] 4.61 10*6/uL [facility] WBC (Bld) [#/Vol] 16.61 10*3/uL High 3.73 - 10 .10 K/uL [facility] CHEM 7 (LYTES,BUN,CREA,GLUC) Ordered By: Kaylah Mc on 05-17-2022 Anion gap [Moles/Vol] 15 mmol/L 7 - 17 mmol/L [facility] Chloride [Moles/Vol] 103 mmol/L 98 - 10 8 mmol/L [facility] CO2 [Moles/Vol] 23 mmol/L 21 - 31 mmol/L [facility] Creatinine [Mass/Vol] 5.95 mg/dL High 0.70 - 1.30 mg/dL [facility] GFR/1.73 sq M.predicted CKD-EPI (S/P/Bld) [Vol rate/Area] 11 Low >=60 mL/min/1.73m2 [facility] Comment on above: Reported eGFR is bas ed on the CKD-EPI 2020 equation using creatinine, age, and sex. Glucose [Mass/Vol] 165 mg/dL High 70 - 99 mg/dL [facility] Interpretation and review of laboratory results Abnormal [facility] Osmolality Calc [Osmolality] 305 [facility] Potassium [Moles/Vol] 4.6 mmol/L 3.5 - 5.0 mmol/L [facility] Sodium [Moles/Vol] 136 mmol/L 135 - 145 mmol/L [facility] Urea nitrogen [Mass/Vol] 52 mg/dL High 7 - 25 mg/dL [facility] Urea nitrogen/Creatinine [Mass ratio] 9 mg/mg [facility] CHEM 7 (LYTES,BUN,CREA,GLUC) Ordered By: Kehinde Olsen on 05-17-2022 Anion gap [Moles/Vol] 24 mmol/L High 7 - 17 mmol/L [facility] Chloride [Moles/Vol] 100 mmol/L 98 - 10 8 mmol/L [facility] CO2 [Moles/Vol] 16 mmol/L Low 21 - 31 mmol/L [facility] Creatinine [Mass/Vol] 8.08 mg/dL High 0.70 - 1.30 mg/dL [facility] GFR/1.73 sq M.predicted CKD-EPI (S/P/Bld) [Vol rate/Area] 7 Low >=60 mL/min/1.73m2 [facility] Comment on above: Reported eGFR is bas ed on the CKD-EPI 2020 equation using creatinine, age, and sex. Glucose [Mass/Vol] 164 mg/dL High 70 - 99 mg/dL [facility] Interpretation and review of laboratory results Abnormal [facility] Osmolality Calc [Osmolality] 305 [facility] Potassium [Moles/Vol] 5.0 mmol/L 3.5 - 5.0 mmol/L [facility] Sodium [Moles/Vol] 135 mmol/L 135 - 145 mmol/L [facility] Urea nitrogen [Mass/Vol] 56 mg/dL High 7 - 25 mg/dL [facility] Urea nitrogen/Creatinine [Mass ratio] 7 mg/mg [facility] LAVENDER TOP TUBEon 05-17-20 [facility] MAGNESIUMon 05-17-2022 Interpretation and review of laboratory results Normal [facility] Magnesium [Mass/Vol] 1.8 mg/dL 1.6 - 2 .6 mg/dL [facility] Interpretation and review of laboratory results Normal [facility] Magnesium [Mass/Vol] 1.6 mg/dL 1.6 - 2 .6 mg/dL [facility] No Panel Informationon 05-[address] [facility] PHOSPHATE, INORGANICon 05-17 Interpretation and review of laboratory results Abnormal [facility] Phosphate [Mass/Vol] 4.9 mg/dL High 2.2 - 4 .6 mg/dL [facility] PT,INR,PTTon 05-17-2022 aPTT Coag (PPP) [Time] 33.0 s [facility] INR Coag (Bld) [Relative time] 1.3 {INR} High [facility] Interpretation and review of laboratory results Abnormal [facility] PT Coag (PPP) [Time] 15.7 s High [facility] Portable XR Chest Viewson IMPRESSION: No acute [...] Stable cardiomegaly. IMPRESSION IMPRESSION: No acute findings. [facility] Radiology Study observation (narrative) [facility] Portable XR Chest ViewsOrder ed By: David Sanz on 05-17-2022 [facility] Work Phone: URINALYSISOrdered By: Michael patel Ma on 05-17-2022 Appearance (U) Cloudy Abnormal Clear [facility] Comment on above: Results may be inacc urate due to color interference. Clinical correlation recommended. Bacteria LM Ql (Urine sed) ABSENT ABSENT [facility] Color (U) Red Abnormal Yellow [facility] Comment on above: Results may be inacc urate due to color interference. Clinical correlation recommended. Epithelial cells.squamous LM Ql (Urine sed) ABSENT 1/hpf = 1+, 2-5/hpf = 2+, 0/hpf = 0+, ABSENT [facility] Glucose Test strip (U) [Mass/Vol] Negative Negative [facility] Comment on above: Results may be inacc urate due to color interference. Clinical correlation recommended. Interpretation and review of laboratory results Abnormal [facility] Ketones (U) [Mass/Vol] Trace Abnormal Negative [facility] Comment on above: Results may be inacc urate due to color interference. Clinical correlation recommended. Leukocyte esterase Test strip Ql (U) Large Abnormal Negative [facility] Comment on above: Results may be inacc urate due to color interference. Clinical correlation recommended. Nitrite Ql (U) Negative Negative [facility] Comment on above: Results may be inacc urate due to color interference. Clinical correlation recommended. pH (U) 5.0 [pH] 5.0 - 7.0 [facility] Comment on above: Results may be inacc urate due to color interference. Clinical correlation recommended. Protein (U) [Mass/Vol] mg/dL Abnormal Negative [facility] Comment on above: Results may be inacc urate due to color interference. Clinical correlation recommended. RBC (U) [#/Vol] Large Abnormal Negative [facility] Comment on above: Results may be inacc urate due to color interference. Clinical correlation recommended. RBC LM.HPF (Urine sed) [#/Area] /[HPF] Abnormal 0 - 2 /HPF [facility] Specific gravity (U) [Rel density] 1.016 [facility] Comment on above: Results may be inacc urate due to color interference. Clinical correlation recommended. Urobilinogen (U) [Mass/Vol] 0.2 E.U./dL 0.2 E.U/dL, 1.0 E.U/dL [facility] Comment on above: Results may be inacc urate due to color interference. Clinical correlation recommended. WBC LM.HPF (Urine sed) [#/Area] /[HPF] Abnormal 0 - 5 /HPF [facility] URINE CULTUREOrdered By: Tyler Tiwari on 05-17-2022 Bacteria identified Cx Nom (Unsp spec) No Growth [facility] CBC,PLATELETSon 05-16-2022 Erythrocyte distribution width (RBC) [Ratio] 12.9 % 10.9 - 14.3 % [facility] Hematocrit (Bld) [Volume fraction] 46.5 % 39.6 - 48.8 % [facility] Hemoglobin (Bld) [Mass/Vol] 14.7 g/dL 13.4 - 16.8 g/dL [facility] Interpretation and review of laboratory results Abnormal [facility] MCH (RBC) [Entitic mass] 28.3 pg 26.1 - 33.3 pg [facility] MCHC (RBC) [Mass/Vol] 31.6 g/dL Low 31.9 - 36.5 g/dL [facility] MCV (RBC) [Entitic vol] 89.6 fL 79.0 - 94.5 fL [facility] Platelet mean volume (Bld) [Entitic vol] 10.3 fL 8.7 - 12.3 fL [facility] Platelets (Bld) [#/Vol] 188 10*3/uL 146 - 337 K/uL [facility] RBC (Bld) [#/Vol] 5.19 10*6/uL [facility] WBC (Bld) [#/Vol] 12.55 10*3/uL High 3.73 - 10 .10 K/uL [facility] CHEM 7 (LYTES,BUN,CREA,GLUC) Ordered By: Alma Pena on 05-16-2022 Anion gap [Moles/Vol] 14 mmol/L 7 - 17 mmol/L [facility] Chloride [Moles/Vol] 103 mmol/L 98 - 10 8 mmol/L [facility] CO2 [Moles/Vol] 22 mmol/L 21 - 31 mmol/L [facility] Creatinine [Mass/Vol] 6.09 mg/dL High 0.70 - 1.30 mg/dL [facility] GFR/1.73 sq M.predicted CKD-EPI (S/P/Bld) [Vol rate/Area] 10 Low >=60 mL/min/1.73m2 [facility] Comment on above: Reported eGFR is bas ed on the CKD-EPI 2020 equation using creatinine, age, and sex. Glucose [Mass/Vol] 134 mg/dL High 70 - 99 mg/dL [facility] Interpretation and review of laboratory results Abnormal [facility] Osmolality Calc [Osmolality] 298 [facility] Potassium [Moles/Vol] 4.9 mmol/L 3.5 - 5.0 mmol/L [facility] Sodium [Moles/Vol] 134 mmol/L Low 135 - 145 mmol/L [facility] Comment on above: Results inconsistent with previous results Urea nitrogen [Mass/Vol] 49 mg/dL High 7 - 25 mg/dL [facility] Urea nitrogen/Creatinine [Mass ratio] 8 mg/mg [facility] CHEM 7 (LYTES,BUN,CREA,GLUC) on 05-16-2022 Anion gap [Moles/Vol] 17 mmol/L 7 - 17 mmol/L [facility] Chloride [Moles/Vol] 106 mmol/L 98 - 10 8 mmol/L [facility] CO2 [Moles/Vol] 22 mmol/L 21 - 31 mmol/L [facility] Creatinine [Mass/Vol] 5.23 mg/dL High 0.70 - 1.30 mg/dL [facility] GFR/1.73 sq M.predicted CKD-EPI (S/P/Bld) [Vol rate/Area] 13 Low >=60 mL/min/1.73m2 [facility] Comment on above: Reported eGFR is bas ed on the CKD-EPI 2020 equation using creatinine, age, and sex. Glucose [Mass/Vol] 116 mg/dL High 70 - 99 mg/dL [facility] Interpretation and review of laboratory results Abnormal [facility] Osmolality Calc [Osmolality] 305 [facility] Potassium [Moles/Vol] 4.6 mmol/L 3.5 - 5.0 mmol/L [facility] Sodium [Moles/Vol] 140 mmol/L 135 - 145 mmol/L [facility] Urea nitrogen [Mass/Vol] 42 mg/dL High 7 - 25 mg/dL [facility] Urea nitrogen/Creatinine [Mass ratio] 8 mg/mg [facility] EXTRA MICROon 05-16-2022 [facility] LT BLUE TOP TUBEon 2 [facility] LYTES (NA, K, CL) - URINE - RANDOMon 05-16-2022 Chloride (24H U) [Moles/Vol] 68 mmol/L [facility] Potassium (24H U) [Moles/Vol] 36.7 mmol/L [facility] Sodium (24H U) [Moles/Vol] 55 mmol/L [facility] The reference range has not been established for random urine specimens. The test result should be integrated into the clinical context for interpretation. [facility] MAGNESIUMon 05-16-2022 Interpretation and review of laboratory results Normal [facility] Magnesium [Mass/Vol] 1.7 mg/dL 1.6 - 2 .6 mg/dL [facility] NOVEL CORONAVIRUS PCROrdered By: Edson Candelario on 05-16-2022 SARS-CoV-2 (COVID-19) RNA ESTELITA+probe Ql (Unsp spec) Not detected NOT DETECTED [facility] Comment on above: [facility] Negative results do not [...] use authorization for use by authorized laboratories. [facility] No Panel Informationon 05-16 [facility] OSMOLALITY, URINEon 05-16-20 Interpretation and review of laboratory results Normal [facility] Osmolality (U) [Osmolality] 320 mosm/kg [facility] The reference range has not been established for random urine specimens. The test result should be integrated into the clinical context for interpretation. [facility] PROCALCITONINon 05-16-2022 Interpretation and review of laboratory results Normal [facility] Procalcitonin [Mass/Vol] 0.18 ng/mL <0.50 [facility] Comment on above: Procalcitonin is an FDA-approved assay to help manage antibiotic treatment in patients with sepsis/septic shock and lower respiratory tract infections. Specifically, trending procalcitonin in these situations can be used to reduce the duration of antibiotics. Please refer to the Procalcitonin Guide on the Antimicrobial [employer]wardship Webpage for more guidance on how to use and trend procalcitonin in various clinical settings. [email or web address]?[email or web address]=/[email or web address]/[email or web address]/Documents/[email or web address]&action=[email or web address] Two common cutoffs associated with bacterial infections are as follows. Respiratory tract infections: >0.25 ng/mL Sepsis/septic shock: >0.5 ng/mL Procalcitonin should not be used alone as a diagnostic tool, however. All procalcitonin results should be interpreted in association with the patients clinical condition and all laboratory findings. [facility] PT,INR,PTTon 05-16-2022 aPTT Coag (PPP) [Time] 30.3 s [facility] INR Coag (Bld) [Relative time] 1.1 {INR} [facility] Interpretation and review of laboratory results Normal [facility] PT Coag (PPP) [Time] 14.1 s [facility] SARS-CoV-2 (COVID-19) RNA NA A+probe Ql (Unsp spec)Ordered By: Edson Candelario on 05-16-2022 Interpretation and review of laboratory results Normal [facility] TACROLIMUS LEVEL, TROUGH (NM E DRUG LEVEL)Ordered By: Mariama Nick on 05-16-2022 Interpretation and review of laboratory results Normal [facility] Tacrolimus (Bld) [Mass/Vol] 4.1 ng/mL Bone Marrow Transplant: 4.0-12.0, Therapeutic: 5.0-15.0 [facility] Method performed is a chemiluminescent microparticle immunoasssay on the [employer] i2000. The range is based on experience at [facility] and users should be aware that target concentrations vary widely depending on concomitant therapy, time post-transplant, and desired degree of immunosuppression. [facility] URINE PROTEIN/CREA RATIO, RA Smiley 05-16-2022 Creatinine (24H U) [Mass/Vol] 59.82 mg/dL [facility] Protein Unsp time (U) [Mass/Vol] 111 mg/dL [facility] Protein/Creatinine (U) [Mass ratio] 1.856 mg/g [facility] US for transplanted kidney l imitedon 05-16-2022 [...] appearing vascular flow in the transplant kidney. [facility] Radiology Study observation (narrative) [facility] US for transplanted kidney l imitedOrdered By: Rosendo Matute on 05-16-2022 [facility] Work Phone: CBC AND ELECTRONIC DIFFon Basophils (Bld) [#/Vol] 10*3/uL 0.00 - 0.09 K/uL [facility] Basophils/100 WBC (Bld) 0.2 % [facility] Differential cell count method Nom (Bld) Electronic Differential [facility] Eosinophils (Bld) [#/Vol] 10*3/uL 0.00 - 0.48 K/uL [facility] Eosinophils/100 WBC (Bld) 0.0 % [facility] Erythrocyte distribution width (RBC) [Ratio] 12.8 % 10.9 - 14.3 % [facility] Hematocrit (Bld) [Volume fraction] 46.0 % 39.6 - 48.8 % [facility] Hemoglobin (Bld) [Mass/Vol] 14.6 g/dL 13.4 - 16.8 g/dL [facility] Immature granulocytes (Bld) [#/Vol] 0.07 10*3/uL <=0.08 [facility] Immature granulocytes/100 WBC (Bld) 0.4 % [facility] Interpretation and review of laboratory results Abnormal [facility] Lymphocytes (Bld) [#/Vol] 1.49 10*3/uL 0.83 - 3.57 K/uL [facility] Lymphocytes/100 WBC (Bld) 9.4 % [facility] MCH (RBC) [Entitic mass] 28.2 pg 26.1 - 33.3 pg [facility] MCHC (RBC) [Mass/Vol] 31.7 g/dL Low 31.9 - 36.5 g/dL [facility] MCV (RBC) [Entitic vol] 89.0 fL 79.0 - 94.5 fL [facility] Monocytes (Bld) [#/Vol] 1.45 10*3/uL High 0.24 - 0.93 K/uL [facility] Monocytes/100 WBC (Bld) 9.2 % [facility] Neutrophils (Bld) [#/Vol] 12.77 10*3/uL High 1.57 - 6.19 K/uL [facility] Nucleated RBC/100 WBC (Bld) [Ratio] 0.0 % <=0.2 /100 WBC [facility] Platelet mean volume (Bld) [Entitic vol] 9.9 fL 8.7 - 12.3 fL [facility] Platelets (Bld) [#/Vol] 250 10*3/uL 146 - 337 K/uL [facility] RBC (Bld) [#/Vol] 5.17 10*6/uL [facility] Segmented neutrophils/100 WBC (Bld) 80.8 % [facility] WBC (Bld) [#/Vol] 15.81 10*3/uL High 3.73 - 10 .10 K/uL [facility] CBC AUTO DIFFon 05-15-2022 BASO # 0.0 103/ul Normal 0.0-0.1 [facility] Comment on above: Performed By: #### C BC #### [facility] [address] [address] [address] Dwight Waters Basophils/100 WBC (Bld) 0.3 % Normal 0.2-2.0 [facility] Comment on above: Performed By: #### C BC #### [facility] [address] [address] [address] Dwight Waters EO # 0.1 103/ul Normal 0.0-0.7 [facility] Comment on above: Performed By: #### C BC #### [facility] [address] [place] [address] Dr. Dwight Waters Eosinophils/100 WBC (Bld) 0.8 % Critically low 0.9-7.0 [facility] Comment on above: Performed By: #### C BC #### [facility] [address] [address] [address] Dwight Waters Erythrocyte distribution width (RBC) [Ratio] 12.7 % Normal 11.0-15.0 [facility] Comment on above: Performed By: #### C BC #### [facility] [address] [place] [address] Dr. Dwight Waters Hematocrit (Bld) [Volume fraction] 43.5 % Normal 42.0-54.0 [facility] Comment on above: Performed By: #### C BC #### [facility] [address] [address] [address] Dwight Waters Hemoglobin (Bld) [Mass/Vol] 14.4 g/dL Normal 14.0-18.0 [facility] Comment on above: Performed By: #### C BC #### [facility] [address] [address] [address] Dwight Waters IG # 0.02 10e3/ul Normal 0.00-0.03 [facility] Comment on above: Performed By: #### C BC #### [facility] [address] [place] [address] Dr. Dwight Waters IG % 0.2 % Normal 0.0-0.5 [facility] Comment on above: Performed By: #### C BC #### [facility] [address] [place] [address] Dr. Dwight Waters LYMPH # 1.5 103/ul Normal 1.2-3.8 [facility] Comment on above: Performed By: #### C BC #### [facility] [address] [place] [address] Dr. Dwight Waters Lymphocytes/100 WBC (Bld) 12.5 % Critically low 20.5-60.0 [facility] Comment on above: Performed By: #### C BC #### [facility] [address] [place] [address] Dr. Dwight Waters MANUAL DIFF REQ NO Normal [facility] Comment on above: Performed By: #### C BC #### [facility] [address] [place] [address] Dr. Dwight Waters MCH (RBC) [Entitic mass] 28.6 pg Normal 25.9-34.0 [facility] Comment on above: Performed By: #### C BC #### [facility] [address] [place] [address] Dr. Dwight Waters MCHC (RBC) [Mass/Vol] 33.1 g/dL Normal 29.9-35.2 [facility] Comment on above: Performed By: #### C BC #### [facility] [address] [place] [address] Dr. Dwight Waters MCV (RBC) [Entitic vol] 86.3 fL Normal 80.0-94.0 [facility] Comment on above: Performed By: #### C BC #### [facility] [address] [place] [address] Dr. Dwight Waters MONO # 1.0 103/ul Critically high 0.3-0.8 [facility] Comment on above: Performed By: #### C BC #### [facility] [address] [address] [address] Dwight Waters Monocytes/100 WBC (Bld) 8.2 % Normal 1.7-12.0 [facility] Comment on above: Performed By: #### C BC #### [facility] [address] [address] [address] Dwight Waters NEUT # 9.1 103/ul Critically high 1.4-6.5 [facility] Comment on above: Performed By: #### C BC #### [facility] [address] [address] [address] Dwight Waters Neutrophils/100 WBC (Bld) 78.0 % Critically high 43.0-75.0 [facility] Comment on above: Performed By: #### C BC #### [facility] [address] [place] [address] Dr. Dwight Waters Platelet mean volume (Bld) [Entitic vol] 9.8 fL Normal 9.5-13.5 [facility] Comment on above: Performed By: #### C BC #### [facility] [address] [address] [address] Dwight Waters PLT 251 103/ul Normal 150-450 [facility] Comment on above: Performed By: #### C BC #### [facility] [address] [place] [address] Dr. Dwight Waters RBC 5.04 106/ul Normal 4.70-6.10 [facility] Comment on above: Performed By: #### C BC #### [facility] [address] [place] [address] Dr. Dwight Waters WBC 11.6 103/ul Critically high 4.0-11.0 [facility] Comment on above: Performed By: #### C BC #### [facility] [address] [place] [address] Dr. Dwight Waters CHEM 6 (LYTES, BUN CREA)on 0 05-15-2022 Anion gap [Moles/Vol] 12 mmol/L 7 - 17 mmol/L [facility] Chloride [Moles/Vol] 105 mmol/L 98 - 10 8 mmol/L [facility] CO2 [Moles/Vol] 26 mmol/L 21 - 31 mmol/L [facility] Creatinine [Mass/Vol] 2.85 mg/dL High 0.70 - 1.30 mg/dL [facility] GFR/1.73 sq M.predicted CKD-EPI (S/P/Bld) [Vol rate/Area] 26 Low >=60 mL/min/1.73m2 [facility] Comment on above: Reported eGFR is bas ed on the CKD-EPI 2020 equation using creatinine, age, and sex. Potassium [Moles/Vol] 4.6 mmol/L 3.5 - 5.0 mmol/L [facility] Sodium [Moles/Vol] 138 mmol/L 135 - 145 mmol/L [facility] Urea nitrogen [Mass/Vol] 32 mg/dL High 7 - 25 mg/[facility] Urea nitrogen/Creatinine [Mass ratio] 11 mg/mg [facility] ABD/PELVIS WO CONon 05-15 CT [...] transplanted kidney with moderate right-sided hydronephrosis. Atrophic [place] kidneys with moderate right-sided hydronephrosis. Multiple nonobstructive [...] transplanted kidney with moderate right-sided hydronephrosis. Atrophic [place] kidneys with moderate right-sided hydronephrosis. Multiple nonobstructive right renal calculi measuring up to 8 mm. FOLLOW-UP: Follow-up as clinically indicated. Electronically authenticated by: LYNDSAY JEAN Date: 2022-05-15 05:04 Normal [facility] Covid-19 PCR (CVDTB)on 04-30 SARS-CoV-2 (COVID-19) RNA ESTELITA+probe Ql (Unsp spec) Not detected Normal NOT DETECTED [facility] Comment on above: Result Comment: When diagnostic [...] for this test is supported by the [place] of Health and Human Service's declaration that [...] RTPCR #### [facility] [address] [address] [address] Dwight Waters GLUCOSEon 05-15-2022 Glucose [Mass/Vol] 141 mg/dL High 70 - 99 mg/dL [facility] GOLD TOP TUBEon 05-15-2022 [facility] HEPATIC FUNCTION PANELon Albumin [Mass/Vol] 4.3 g/dL 3.5 - 5.0 g/dL [facility] ALP [Catalytic activity/Vol] 85 U/L 32 - 126 U/L [facility] ALT [Catalytic activity/Vol] 13 U/L 10 - 52 U/L [facility] AST [Catalytic activity/Vol] 15 U/L 10 - 39 U/L [facility] Bilirubin [Mass/Vol] 0.8 mg/dL <1.5 [facility] Bilirubin.direct [Mass/Vol] 0.2 mg/dL <0.3 [facility] Interpretation and review of laboratory results Normal [facility] Protein [Mass/Vol] 7.3 g/dL 6.4 - 8.3 g/dL [facility] LIPASEon 05-15-2022 Lipase [Catalytic activity/Vol] 8 U/L Low 11 - 82 U/L [facility] No Panel Informationon 05-15 Interpretation and review of laboratory results Abnormal [facility] PROF 14(COMP METB)on 022 Albumin [Mass/Vol] 3.8 g/dL Normal 3.4-5.0 [facility] Comment on above: Performed By: #### U RTPCR #### [facility] [address] [place] [address] Dr. Dwight Waters Albumin/Globulin [Mass ratio] 1.1 {ratio} Normal [facility] Comment on above: Performed By: #### U RTPCR #### [facility] [address] [place] [address] Dr. Dwight Waters ALP [Catalytic activity/Vol] 92 U/L Normal 46-116 [facility] Comment on above: Performed By: #### U RTPCR #### [facility] [address] [place] [address] Dr. Dwight Waters ALT [Catalytic activity/Vol] 25 U/L Normal 16-63 [facility] Comment on above: Performed By: #### U RTPCR #### [facility] [address] [place] [address] Dr. Dwight Waters Anion gap [Moles/Vol] 14.6 mmol/L Normal [facility] Comment on above: Performed By: #### U RTPCR #### [facility] [address] [address] [address] Dwight Waters AST [Catalytic activity/Vol] 17 U/L Normal 15-37 [facility] Comment on above: Performed By: #### U RTPCR #### [facility] [address] [address] [address] Dwight Waters Bilirubin [Mass/Vol] 0.6 mg/dL Normal 0.2-1.0 [facility] Comment on above: Performed By: #### U RTPCR #### [facility] [address] [address] [address] Dwight Waters Calcium [Mass/Vol] 9.9 mg/dL Normal 8.5-10.1 [facility] Comment on above: Performed By: #### U RTPCR #### [facility] [address] [address] [address] Dwight Waters Chloride [Moles/Vol] 106 mmol/L Normal 98-107 [facility] Comment on above: Performed By: #### U RTPCR #### [facility] [address] [address] [address] Dwight Waters CO2 [Moles/Vol] 24.2 mmol/L Normal 21.0-32.0 [facility] Comment on above: Performed By: #### U RTPCR #### [facility] [address] [address] [address] Dwight Waters Creatinine [Mass/Vol] 1.58 mg/dL Critically high 0.70-1.30 [facility] Comment on above: Performed By: #### U RTPCR #### [facility] [address] [address] [address] Dwight Waters EGFR-AF TAJIK 56 mL/min/1.73m2 Critically low >=60 [facility] Comment on above: Performed By: #### U RTPCR #### [facility] [address] [address] [address] Dwight Waters EGFR-NON AF TAJIK 46 mL/min/1.73m2 Critically low >=60 [facility] Comment on above: Performed By: #### U RTPCR #### [facility] [address] [address] [address] Dwight Waters Globulin (S) [Mass/Vol] 3.5 g/dL Normal [facility] Comment on above: Performed By: #### U RTPCR #### [facility] [address] [address] [address] Dwight Waters Glucose [Mass/Vol] 162 mg/dL Critically high 74-106 [facility] Comment on above: Performed By: #### U RTPCR #### [facility] [address] [address] [address] Dwight Waters Potassium [Moles/Vol] 3.8 mmol/L Normal 3.5-5.1 [facility] Comment on above: Performed By: #### U RTPCR #### [facility] [address] [address] [address] Dwight Waters Protein [Mass/Vol] 7.3 g/dL Normal 6.4-8.2 [facility] Comment on above: Performed By: #### U RTPCR #### [facility] [address] [address] [address] Dwight Waters Sodium [Moles/Vol] 141 mmol/L Normal 136-145 [facility] Comment on above: Performed By: #### U RTPCR #### [facility] [address] [address] [address] Dwight Waters Urea nitrogen [Mass/Vol] 22.0 mg/dL Critically high 7.0-18.0 [facility] Comment on above: Performed By: #### U RTPCR #### [facility] [address] [address] [address] Dwight Waters Urea nitrogen/Creatinine [Mass ratio] 13.9 mg/mg Normal [facility] Comment on above: Performed By: #### U RTPCR #### [facility] [address] [place] [address] Dr. Dwight Waters Portable XR Chest Viewson [...] chest. IMPRESSION IMPRESSION: No acute cardiopulmonary disease [facility] Radiology Study observation (narrative) [facility] Portable XR Chest ViewsOrder ed By: Vladislav Omer on 05-15-2022 [facility] URINE DIPSTICK; REFLEX MICRO SCOPY; REFLEX CULTURE PERFORMABLEon 05-15-2022 Appearance (U) Clear Clear [facility] Color (U) Yellow Yellow [facility] Glucose Test strip (U) [Mass/Vol] 100 mg/dL Abnormal Negative [facility] Interpretation and review of laboratory results Abnormal [facility] Ketones (U) [Mass/Vol] Negative Negative [facility] Leukocyte esterase Test strip Ql (U) Large Abnormal Negative [facility] Nitrite Ql (U) Negative Negative [facility] pH (U) 6.0 [pH] 5.0 - 7.[address] [facility] Protein (U) [Mass/Vol] 100 mg/dL Abnormal Negative [facility] RBC (U) [#/Vol] Large Abnormal Negative [facility] Specific gravity (U) [Rel density] 1.010 [facility] Urobilinogen (U) [Mass/Vol] 0.2 E.U./dL 0.2 E.U/dL, 1.0 E.U/dL [facility] URINE MICROSCOPIC WITH REFLE X TO CULTUREOrdered By: Rey Bro on 06-16-2022 Bacteria LM Ql (Urine sed) ABSENT ABSENT [facility] Epithelial cells.squamous LM Ql (Urine sed) ABSENT 1/hpf = 1+, 2-5/hpf = 2+, 0/hpf = 0+, ABSENT [facility] Interpretation and review of laboratory results Abnormal [facility] RBC LM.HPF (Urine sed) [#/Area] /[HPF] Abnormal 0 - 2 /HPF [facility] WBC LM.HPF (Urine sed) [#/Area] 10-20 Abnormal 0 - 5 /HPF [facility] CT ABD/PELVIS WO CONon 05-12 CT ABD/PELVIS WO CON Begin Addendum #[address] Lund 3:25 PM EST 05/11/2022. Begin Addendum #2 IMPRESSION below should also contain the followin. 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 The [place] kidneys are progressively atrophic bilaterally compared to [...] of 06/14/2020 are no longer present. The [place] distal right ureter is decompressed beyond this [...] with surgical history for renal graft and [place] right urinary drainage, as a discrete ureteroneocystostomy is not identified, and the graft may be draining via a ureteroureterostomy. Urology consultation recommended. 3. The [place] kidneys are bilaterally atrophic, with right renal sinus calcifications consistent with nonobstructing right [place] renal calculi up to 6 mm. Normal [facility] CBC AUTO DIFFon 05-11-2022 BASO # 0.1 103/ul Normal 0.0-0.1 [facility] Comment on above: Performed By: #### U RTPCR #### [facility] [address] [address] [address] Dwight Waters Basophils/100 WBC (Bld) 0.8 % Normal 0.2-2.0 [facility] Comment on above: Performed By: #### U RTPCR #### [facility] [address] [place] [address] Dr. Dwight Waters EO # 0.2 103/ul Normal 0.0-0.7 [facility] Comment on above: Performed By: #### U RTPCR #### [facility] [address] [place] [address] Dr. Dwight Waters Eosinophils/100 WBC (Bld) 2.5 % Normal 0.9-7.0 [facility] Comment on above: Performed By: #### U RTPCR #### [facility] [address] [place] [address] Dr. Dwight Waters Erythrocyte distribution width (RBC) [Ratio] 12.5 % Normal 11.0-15.0 [facility] Comment on above: Performed By: #### U RTPCR #### [facility] [address] [place] [address] Dr. Dwight Waters Hematocrit (Bld) [Volume fraction] 48.3 % Normal 42.0-54.0 [facility] Comment on above: Performed By: #### U RTPCR #### [facility] [address] [place] [address] Dr. Dwight Waters Hemoglobin (Bld) [Mass/Vol] 15.3 g/dL Normal 14.0-18.0 [facility] Comment on above: Performed By: #### U RTPCR #### [facility] [address] [place] [address] Dr. Dwight Waters IG # 0.01 10e3/ul Normal 0.00-0.03 [facility] Comment on above: Performed By: #### U RTPCR #### [facility] [address] [place] [address] Dr. Dwight Waters IG % 0.2 % Normal 0.0-0.5 [facility] Comment on above: Performed By: #### U RTPCR #### [facility] [address] [address] [address] Dwight Waters LYMPH # 1.9 103/ul Normal 1.2-3.8 [facility] Comment on above: Performed By: #### U RTPCR #### [facility] [address] [address] [address] Dwight Waters Lymphocytes/100 WBC (Bld) 29.8 % Normal 20.5-60.0 [facility] Comment on above: Performed By: #### U RTPCR #### [facility] [address] [address] [address] Dwight Waters MANUAL DIFF REQ NO Normal [facility] Comment on above: Performed By: #### U RTPCR #### [facility] [address] [place] [address] Dr. Dwight Waters MCH (RBC) [Entitic mass] 28.2 pg Normal 25.9-34.0 [facility] Comment on above: Performed By: #### U RTPCR #### [facility] [address] [place] [address] Dr. Dwight Waters MCHC (RBC) [Mass/Vol] 31.7 g/dL Normal 29.9-35.2 [facility] Comment on above: Performed By: #### U RTPCR #### [facility] [address] [place] [address] Dr. Dwight Waters MCV (RBC) [Entitic vol] 89.1 fL Normal 80.0-94.0 [facility] Comment on above: Performed By: #### U RTPCR #### [facility] [address] [place] [address] Dr. Dwight Waters MONO # 0.6 103/ul Normal 0.3-0.8 [facility] Comment on above: Performed By: #### U RTPCR #### [facility] [address] [place] [address] Dr. Dwight Waters Monocytes/100 WBC (Bld) 9.0 % Normal 1.7-12.0 [facility] Comment on above: Performed By: #### U RTPCR #### [facility] [address] [place] [address] Dr. Dwight Waters NEUT # 3.6 103/ul Normal 1.4-6.5 [facility] Comment on above: Performed By: #### U RTPCR #### [facility] [address] [place] [address] Dr. Dwight Waters Neutrophils/100 WBC (Bld) 57.7 % Normal 43.0-75.0 [facility] Comment on above: Performed By: #### U RTPCR #### [facility] [address] [place] [address] Dr. Dwight Waters Platelet mean volume (Bld) [Entitic vol] 9.9 fL Normal 9.5-13.5 [facility] Comment on above: Performed By: #### U RTPCR #### [facility] [address] [place] [address] Dr. Dwight Waters PLT 249 103/ul Normal 150-450 [facility] Comment on above: Performed By: #### U RTPCR #### [facility] [address] [place] [address] Dr. Dwight Waters RBC 5.42 106/ul Normal 4.70-6.10 [facility] Comment on above: Performed By: #### U RTPCR #### [facility] [address] [place] [address] Dr. Dwight Waters WBC 6.3 103/ul Normal 4.0-11.0 [facility] Comment on above: Performed By: #### U RTPCR #### [facility] [address] [place] [address] Dr. Dwight Waters ER URINE PROFILEon 2 Bilirubin Ql (U) Unable to perform testing due to color interference. Abnormal NEGATIVE [facility] Comment on above: Performed By: #### U RTPCR #### [facility] [address] [place] [address] Dr. Dwight Waters Clarity (U) TURBID Abnormal CLEAR [facility] Comment on above: Performed By: #### U RTPCR #### [facility] [address] [place] [address] Dr. Dwight Waters Color (U) RED Abnormal YELLOW [facility] Comment on above: Performed By: #### U RTPCR #### [facility] [address] [place] [address] Dr. Dwight Waters ERUAHJenna A micrscopic examination will be performed if indicated. Normal [facility] Comment on above: Performed By: #### U RTPCR #### [facility] [address] [place] [address] Dr. Dwight Waters Glucose Ql (U) Unable to perform testing due to color interference. Abnormal NEGATIVE [facility] Comment on above: Performed By: #### U RTPCR #### [facility] [address] [place] [address] Dr. Dwight Waters Hemoglobin Ql (U) Unable to perform testing due to color interference. Abnormal NEGATIVE [facility] Comment on above: Performed By: #### U RTPCR #### [facility] [address] [place] [address] Dr. Dwight Waters Ketones Ql (U) Unable to perform testing due to color interference. Abnormal NEGATIVE [facility] Comment on above: Performed By: #### U RTPCR #### [facility] [address] [place] [address] Dr. Dwight Waters LEUKOCYTES Unable to perform testing due to color interference. Abnormal NEGATIVE [facility] Comment on above: Performed By: #### U RTPCR #### [facility] [address] [place] [address] Dr. Dwihgt Waters Nitrite Ql (U) Unable to perform testing due to color interference. Abnormal NEGATIVE [facility] Comment on above: Performed By: #### U RTPCR #### [facility] [address] [place] [address] Dr. Dwight Waters pH (U) 6.5 [pH] Normal 5-9 [facility] Comment on above: Performed By: #### U RTPCR #### [facility] [address] [place] [address] Dr. Dwight Waters SPEC GRAVITY 1.020 Normal 1.005-<=1.025 [facility] Comment on above: Performed By: #### U RTPCR #### [facility] [address] [place] [address] Dr. Dwight Waters UA PROTEIN Unable to perform testing due to color interference. Normal NEGATIVE/ TRACE [facility] Comment on above: Performed By: #### U RTPCR #### [facility] [address] [place] [address] Dr. Dwight Waters UR MICRO IND INDICATED Normal [facility] Comment on above: Performed By: #### U RTPCR #### [facility] [address] [place] [address] Dr. Dwight Waters UROBILINOGEN Unable to perform testing due to color interference. Normal 0.2 - 1.0 [facility] Comment on above: Performed By: #### U RTPCR #### [facility] [address] [place] [address] Dr. Dwight Waters PROF 14(COMP METB)on 022 Albumin [Mass/Vol] 3.8 g/dL Normal 3.4-5.0 [facility] Comment on above: Performed By: #### C MP #### [facility] [address] [place] [address] Dr. Dwight Waters Albumin/Globulin [Mass ratio] 1.1 {ratio} Normal [facility] Comment on above: Performed By: #### C MP #### [facility] [address] [place] [address] Dr. Dwight Waters ALP [Catalytic activity/Vol] 106 U/L Normal 46-116 [facility] Comment on above: Performed By: #### C MP #### [facility] [address] [place] [address] Dr. Dwight Waters ALT [Catalytic activity/Vol] 30 U/L Normal 16-63 [facility] Comment on above: Performed By: #### C MP #### [facility] [address] [place] [address] Dr. Dwight Waters Anion gap [Moles/Vol] 11.7 mmol/L Normal [facility] Comment on above: Performed By: #### C MP #### [facility] [address] [address] [address] Dwight Waters AST [Catalytic activity/Vol] 16 U/L Normal 15-37 [facility] Comment on above: Performed By: #### C MP #### [facility] [address] [place] [address] Dr. Dwight Waters Bilirubin [Mass/Vol] 0.6 mg/dL Normal 0.2-1.0 [facility] Comment on above: Performed By: #### C MP #### [facility] [address] [place] [address] Dr. Dwight Waters Calcium [Mass/Vol] 9.1 mg/dL Normal 8.5-10.1 [facility] Comment on above: Performed By: #### C MP #### [facility] [address] [place] [address] Dr. Dwight Waters CO2 [Moles/Vol] 27.4 mmol/L Normal 21.0-32.0 [facility] Comment on above: Performed By: #### C MP #### [facility] [address] [place] [address] Dr. Dwight Waters Creatinine [Mass/Vol] 1.18 mg/dL Normal 0.70-1.30 [facility] Comment on above: Performed By: #### C MP #### [facility] [address] [place] [address] Dr. Dwight Waters EGFR-AF TAJIK >60 Normal >=60 [facility] Comment on above: Performed By: #### C MP #### [facility] [address] [place] [address] Dr. Dwight Waters EGFR-NON AF TAJIK >60 Normal >=60 [facility] Comment on above: Performed By: #### C MP #### [facility] [address] [place] [address] Dr. Dwight Waters Globulin (S) [Mass/Vol] 3.6 g/dL Normal [facility] Comment on above: Performed By: #### C MP #### [facility] [address] [place] [address] Dr. Dwight Waters Glucose [Mass/Vol] 192 mg/dL Critically high 74-106 [facility] Comment on above: Performed By: #### C MP #### [facility] [address] [place] [address] Dr. Dwight Waters Potassium [Moles/Vol] 4.1 mmol/L Normal 3.5-5.1 [facility] Comment on above: Performed By: #### C MP #### [facility] [address] [place] [address] Dr. Dwight Waters Protein [Mass/Vol] 7.4 g/dL Normal 6.4-8.2 [facility] Comment on above: Performed By: #### C MP #### [facility] [address] [place] [address] Dr. Dwight Waters Sodium [Moles/Vol] 142 mmol/L Normal 136-145 [facility] Comment on above: Performed By: #### C MP #### [facility] [address] [place] [address] Dr. Dwight Waters Urea nitrogen [Mass/Vol] 17.0 mg/dL Normal 7.0-18.0 [facility] Comment on above: Performed By: #### C MP #### [facility] [address] [place] [address] Dr. Dwight Waters Urea nitrogen/Creatinine [Mass ratio] 14.4 mg/mg Normal [facility] Comment on above: Performed By: #### C MP #### [facility] [address] [place] [address] Dr. Dwight Waters URINE MICROSCOPIC ONLYon BACTERIA NONE SEEN Normal NONE SEEN [facility] Comment on above: Performed By: #### U RTPCR #### [facility] [address] [place] [address] Dr. Dwight Waters Bacteria identified Cx Nom (U) NOT INDICATED Normal [facility] Comment on above: Performed By: #### U RTPCR #### [facility] [address] [place] [address] Dr. Dwight Waters CAST NONE SEEN Normal NONE SEEN [facility] Comment on above: Performed By: #### U RTPCR #### [facility] [address] [address] [address] Dwight Waters Crystals LM Nom (Urine sed) NONE SEEN Normal NONE SEEN [facility] Comment on above: Performed By: #### U RTPCR #### [facility] [address] [place] [address] Dr. Dwight Waters Epithelial cells LM Ql (Urine sed) RARE Normal NONE SEEN /RARE [facility] Comment on above: Performed By: #### U RTPCR #### [facility] [address] [place] [address] Dr. Dwight Waters MUCOUS NONE SEEN Normal NONE SEEN [facility] Comment on above: Performed By: #### U RTPCR #### [facility] [address] [place] [address] Dr. Dwight Waters RBC (U) [#/Vol] /uL Abnormal 0-2 [facility] Comment on above: Performed By: #### U RTPCR #### [facility] [address] [place] [address] Dr. Dwight Waters WBC NONE SEEN Normal NONE SEEN [facility] Comment on above: Performed By: #### U RTPCR #### [facility] [address] [place] [address] Dr. Dwight Waters K (Potassium)on 01-06-2020 Potassium [Moles/Vol] 4.4 mmol/L Normal 3.7-5.3 [facility] Comment on above: Performed By: #### K #### [facility] [address] [place], [place] [address] Machine Fixer: Kehinde Woodward MD Potassiumon 01-06-2020 Potassium [Moles/Vol] 4.4 mmol/L 3.7 - 5.3 mmol/L [facility] Work Phone: Hemoglobin and Hematocrit, B lojania 10-24-2019 Hematocrit (Bld) [Volume fraction] 23.6 % Low 40.7 - 50.3 % [facility] [place] Hemoglobin (Bld) [Mass/Vol] 7.3 g/dL Low 13 - 17 g/dL [place], [place] Interpretation and review of laboratory results Abnormal [place], [place] Hgb/Hcton 10-24-2019 Hematocrit (Bld) [Volume fraction] 23.6 % Low 40.7-50.3 [facility] Comment on above: Performed By: #### H H #### [facility] [address] [place] [address] Machine Fixer: Kehinde Woodward MD Hemoglobin (Bld) [Mass/Vol] 7.3 g/dL Low 13.0-17.0 [facility] Comment on above: Performed By: #### H H #### [facility] [address] [place] [address] Machine Fixer: Kehinde Woodward MD Hemoglobinon 08-27-2019 Hemoglobin (Bld) [Mass/Vol] 7.5 g/dL Low 13.0-17.0 [facility] Comment on above: Performed By: #### H GB #### [facility] [address] [place] [address] Machine Fixer: Kehinde Woodward MD Hemoglobin (Bld) [Mass/Vol] 7.5 g/dL Low 13 - 17 g/dL [place], [place] Interpretation and review of laboratory results Abnormal [place] Hemoglobinon 08-08-2019 Hemoglobin (Bld) [Mass/Vol] 8.3 g/dL Low 13.0-17.0 [facility] Comment on above: Performed By: #### H GB #### [facility] [address] [place] [address] Machine Fixer: Kehinde Woodward MD Hemoglobin (Bld) [Mass/Vol] 8.3 g/dL Low 13 - 17 g/dL [place], [place] Interpretation and review of laboratory results Abnormal [place] Hemoglobinon 08-04-2019 Hemoglobin (Bld) [Mass/Vol] 8.0 g/dL Low 13.0-17.0 [facility] Comment on above: Performed By: #### H GB #### [facility] [address] [place], [place] [address] Machine Fixer: Kehinde Woodward MD Hemoglobin A1Con 08-03-2019 HbA1c (Bld) [Mass fraction] % Low 4.8-5.9 [facility] Comment on above: Result Comment: The ADA and AACC recommend providing the estimated average glucose result to permit better patient understanding of their HBA1c result. Performed By: #### G LYHGB #### [facility] [address] [place] [address] Machine Fixer: Kehinde Woodward MD Glucose [Mass/Vol] mg/dL mg/dL [place], [place] Comment on above: The ADA and AACC rec ommend providing the estimated average glucose result to permit better patient understanding of their HBA1c result. HbA1c (Bld) [Mass fraction] % Low 4.8 - 5.9 % [place], [place] Interpretation and review of laboratory results Abnormal [place] Hemoglobinon 08-01-2019 Hemoglobin (Bld) [Mass/Vol] 8.1 g/dL Low 13.0-17.0 [facility] Comment on above: Performed By: #### H GB #### [facility] [address] [place] [address] Machine Fixer: Kehinde Woodward MD Hemoglobin (Bld) [Mass/Vol] 8.1 g/dL Low 13 - 17 g/dL [place], [place] Interpretation and review of laboratory results Abnormal [place] Hgb/Hcton 06-10-2019 Hematocrit (Bld) [Volume fraction] 24.3 % Low 40.7-50.3 [facility] Comment on above: Performed By: #### H H #### [facility] [address] [place] [address] Machine Fixer: Kehinde Woodward MD Hemoglobin (Bld) [Mass/Vol] 7.4 g/dL Low 13.0-17.0 [facility] Comment on above: Performed By: #### H H #### [facility] [address] [place], [place] [address] Machine Fixer: Kehinde Woodward MD Hemoglobinon 06-01-2019 Hemoglobin (Bld) [Mass/Vol] 7.2 g/dL Low 13.0-17.0 [facility] Comment on above: Performed By: #### H GB #### [facility] [address] [place] [id number] Machine Fixer: Keihnde Woodward MD K (Potassium)on 01-14-2019 Potassium [Moles/Vol] 3.6 mmol/L Low 3.7-5.3 [facility] Comment on above: Performed By: #### K #### [facility] [address] [place], [place] [id number] Machine Fixer: Kehinde Woodward MD Otheron 10-19-2018 IMPRESSION: 1. [...] characteristics determined by Toxicology Laboratory at [facility]. It has not been cleared or [...] Amitriptyline(50), Amphetamine(250), Atenolol(500), Barbiturates(1000), Benzoylecgonine(50), Buprenorphine(50), Bupropion(25), Caffeine(42278), Chlordiazepoxide(50), Chlorpheniramine(100), Chlorpromazine(50), Citalopram(100), Clonazepam(200), Cocaine(25), Codeine(200), [...] LAB, [facility] TOXICOLOGY SCREEN URINE - UD [facility] 10-12-2018 Drugs identified Screen Nom (U) For Medical Purposes Only, Non-forensic, screen results are presumptive. No confirmatory testing will follow. Invalid Interpretation Code LAB, [facility] Comment on above: This Liquid Chromato graphy Mass Spectrometry (LC/MS/MS) test was developed and its performance characteristics determined by Toxicology Laboratory at [facility]. It has not been cleared or [...] Amitriptyline(50), Amphetamine(250), Atenolol(500), Barbiturates(200), Benzoylecgonine(50), Buprenorphine(500), Bupropion(25), Caffeine(26926), Cannabinoids(THC)(50), Chlordiazepoxide(50), Chlorpheniramine(100), Chlorpromazine(50), Citalopram(100), Clonazepam(200), Cocaine(25), [...] 97.81 [degF] Steve Farrari MBBS Work Phone: [facility] 09-11-2023 10:31-0400 Diastolic blood pressure 66 mm[Hg] Steve Yeison MBBS Work Phone: [facility] 09-11-2023 10:31-0400 Heart rate 70 /min Steve Yeison MBBS Work Phone: [facility] 09-11-2023 10:31-0400 Respiratory rate 20 /min Steve Yeison MBBS Work Phone: [facility] 09-11-2023 10:31-0400 SaO2% (BldA) [Mass fraction] 91 % Steve Yeison MBBS Work Phone: [facility] 09-11-2023 10:31-0400 Systolic blood pressure 129 mm[Hg] Steve Yeison MBBS Work Phone: [facility] 09-10-2023 15:50-0400 Body mass index (BMI) [Ratio] 31.99 kg/m2 Steve Yeison MBBS Work Phone: [facility] 09-10-2023 15:50-0400 Body weight 92.67 kg Steve Yeison MBBS Work Phone: [facility] 09-02-2023 07:32-0400 Body height 170.2 cm Steve Yeison MBBS Work Phone: [facility] 08-28-2023 13:33-0400 Body height 170.2 cm Steve Yeison MBBS Work Phone: [facility] 08-28-2023 13:33-0400 Body mass index (BMI) [Ratio] 32.12 kg/m2 Steve Yeison MBBS Work Phone: [facility] 08-28-2023 13:33-0400 Body temperature 97.3 [degF] Steve Yeison MBBS Work Phone: [facility] 08-28-2023 13:33-0400 Body weight 93.03 kg Steve Yeison MBBS Work Phone: [facility] 08-28-2023 13:33-0400 Diastolic blood pressure 41 mm[Hg] Steve Yeison MBBS Work Phone: [facility] 08-28-2023 13:33-0400 Heart rate 116 /min Steve Yeison MBBS Work Phone: [facility] 08-28-2023 13:33-0400 Systolic blood pressure 106 mm[Hg] Steve Yeison MBBS Work Phone: [facility] 06-12-2023 14:50-0400 Body mass index (BMI) [Ratio] 33.8 kg/m2 Rebeca Olsen AVIATION TECHNICIAN [employer] Work Phone: [facility] 06-12-2023 14:50-0400 Body temperature 97.3 [degF] Rebeca Olsen AVIATION TECHNICIAN [employer] Work Phone: [facility] 06-12-2023 14:50-0400 Body weight 97.89 kg Rebeca Olsen AVIATION TECHNICIAN [employer] Work Phone: [facility] 06-12-2023 14:50-0400 Diastolic blood pressure 77 mm[Hg] Rebeca Olsen AVIATION TECHNICIAN [employer] Work Phone: [facility] 06-12-2023 14:50-0400 Heart rate 76 /min Rebeca Olsen AVIATION TECHNICIAN [employer]IC HEL[employer] Work Phone: [facility] 06-12-2023 14:50-0400 Systolic blood pressure 146 mm[Hg] Rebeca Olsen AVIATION TECHNICIAN [employer]IC HEL[employer] Work Phone: [facility] 01-16-2023 08:57-0500 Body height 170.2 cm [facility] Work Phone: [facility] 01-16-2023 08:57-0500 Body mass index (BMI) [Ratio] 33.66 kg/m2 [facility] Transplant Hepatology 3 Work Phone: [facility] 01-16-2023 08:57-0500 Body temperature 97.3 [degF] [facility] 3 Work Phone: [facility] 01-16-2023 08:57-0500 Body weight 97.48 kg [facility] 3 Work Phone: [facility] 01-16-2023 08:57-0500 Diastolic blood pressure 75 mm[Hg] [facility] 3 Work Phone: [facility] 01-16-2023 08:57-0500 Heart rate 76 /min [facility] 3 Work Phone: [facility] 01-16-2023 08:57-0500 Systolic blood pressure 142 mm[Hg] [facility] Trans[facility]atology 3 Work Phone: [facility] 09-10-2022 09:38-0400 Body height 170.2 cm Ryan Yepez MD Work Phone: [facility] 09-10-2022 09:38-0400 Body mass index (BMI) [Ratio] 33.67 kg/m2 Ryan Yepez MD Work Phone: [facility] 09-10-2022 09:38-0400 Body weight 97.52 kg Ryan Yepez MD Work Phone: [facility] 09-10-2022 09:38-0400 Diastolic blood pressure 83 mm[Hg] Ryan Yepez MD Work Phone: [facility] 09-10-2022 09:38-0400 Heart rate 64 /min Ryan Yepez MD Work Phone: [facility] 09-10-2022 09:38-0400 SaO2% (BldA) [Mass fraction] 96 % Ryan Yepez MD Work Phone: [facility] 09-10-2022 09:38-0400 Systolic blood pressure 129 mm[Hg] Ryan Yepez MD Work Phone: [facility] 07-07-2022 13:48-0400 Diastolic blood pressure 76 mm[Hg] Ryan Yepez MD Work Phone: [facility] 07-07-2022 13:48-0400 Heart rate 82 /min Ryan Yepez MD Work Phone: [facility] 07-07-2022 13:48-0400 SaO2% (BldA) [Mass fraction] 96 % Ryan Yepez MD Work Phone: [facility] 07-07-2022 13:48-0400 Systolic blood pressure 141 mm[Hg] Ryan Yepez MD Work Phone: [facility] 06-27-2022 13:32-0400 Body height 170.2 cm Ryan Yepez MD Work Phone: [facility] 06-27-2022 13:32-0400 Body mass index (BMI) [Ratio] 34.24 kg/m2 Ryan Yepez MD Work Phone: [facility] 06-27-2022 13:32-0400 Body temperature 98.6 [degF] Ryan Yepez MD Work Phone: [facility] 06-27-2022 13:32-0400 Body weight 99.16 kg Ryan Yepez MD Work Phone: [facility] 06-27-2022 13:32-0400 Diastolic blood pressure 78 mm[Hg] Ryan Yepez MD Work Phone: [facility] 06-27-2022 13:32-0400 Heart rate 77 /min Ryan Yepez MD Work Phone: [facility] 06-27-2022 13:32-0400 SaO2% (BldA) [Mass fraction] 95 % Ryan Yepez MD Work Phone: [facility] 06-27-2022 13:32-0400 Systolic blood pressure 121 mm[Hg] Ryan Yepez MD Work Phone: [facility] 06-27-2022 10:52-0400 Body height 170.2 cm Rena Brewster RN [facility] 06-27-2022 10:52-0400 Body mass index (BMI) [Ratio] 34.46 kg/m2 Rena Brewster RN [facility] 06-27-2022 10:52-0400 Body temperature 98.2 [degF] Rena Brewster RN [facility] 07-29-2022 10:52-0400 Body weight 99.79 kg Rena Brewster RN [facility] 06-27-2022 10:52-0400 Diastolic blood pressure 73 mm[Hg] Rena Brewster RN [facility] 06-27-2022 10:52-0400 Heart rate 78 /min Rena Brewster RN [facility] 06-27-2022 10:52-0400 Respiratory rate 20 /min Rena Brewster RN [facility] 06-27-2022 10:52-0400 SaO2% (BldA) [Mass fraction] 97 % Rena Brewster RN [facility] 06-27-2022 10:52-0400 Systolic blood pressure 135 mm[Hg] Rena Brewster RN [facility] 06-12-2022 14:23-0400 Body mass index (BMI) [Ratio] 34.59 kg/m2 Steve Yeison MBBS Work Phone: [facility] 06-12-2022 14:23-0400 Body temperature 97 [degF] Steve Yeison MBBS Work Phone: [facility] 06-12-2022 14:23-0400 Body weight 100.2 kg Steve Yeison MBBS Work Phone: [facility] 06-12-2022 14:23-0400 Diastolic blood pressure 66 mm[Hg] Steve Yeison MBBS Work Phone: [facility] 06-12-2022 14:23-0400 Heart rate 63 /min Steve Yeison MBBS Work Phone: [facility] 06-12-2022 14:23-0400 Systolic blood pressure 133 mm[Hg] Steve Yeison MBBS Work Phone: [facility] 05-20-2022 15:21-0400 Body temperature 97.9 [degF] Gina Villatoro MD Work Phone: [facility] 05-20-2022 15:21-0400 Diastolic blood pressure 64 mm[Hg] Gian Villatoro MD Work Phone: 1(081)665-847797 [place] [address] 05-20-2022 15:21-0400 Heart rate 55 /min Gian Villatoro MD Work Phone: 8(885)264-081397 [place] [address] 05-20-2022 15:21-0400 Respiratory rate 15 /min Gian Villaotro MD Work Phone: 4(573)156-633597 [place] [address] 05-20-2022 15:21-0400 SaO2% (BldA) [Mass fraction] 95 % Gian Villatoro MD Work Phone: 7(081)029-999897 [place] [address] 05-20-2022 15:21-0400 Systolic blood pressure 145 mm[Hg] Gian Villatoro MD Work Phone: 7(004)959-528497 [place] [address] 05-19-2022 12:15-0400 Body mass index (BMI) [Ratio] 35.87 kg/m2 Gian Villatoro MD Work Phone: 7(163)659-786097 [place] [address] 05-19-2022 12:15-0400 Body weight 103.92 kg Gian Villatoro MD Work Phone: 0(963)[phone] [place] [address] Comment on above: standing scale 05-16-2022 16:19-0400 Body height 170.2 cm Gian Villatoro MD Work Phone: 1(304)405-055397 [place] [address] 10-19-2018 08:44-0500 BMI (Body Mass Index) 26.58 kg/m2 [facility] Work Phone: 10-19-2018 08:44-0500 BP Diastolic 76 mm[Hg] [facility] Work Phone: 10-19-2018 08:44-0500 BP Systolic 144 mm[Hg] [facility] Work Phone: 10-19-2018 08:44-0500 Height 172.7 cm [facility] Work Phone: 10-19-2018 08:44-0500 Pulse (Heart Rate) 92 /min [facility] Work Phone: 10-19-2018 08:44-0500 Pulse Oximetry 99 % [facility] Work Phone: 10-19-2018 08:44-0500 Respiratory Rate 16 /min [facility] Work Phone: 10-19-2018 08:44-0500 Weight 79.29 kg [facility] Work Phone: 10-12-2018 09:50-0500 BMI (Body Mass Index) 27.24 kg/m2 [facility] Work Phone: 10-12-2018 09:50-0500 Body Temperature 98.6 [degF] [facility] Work Phone: 10-12-2018 09:50-0500 BP Diastolic 80 mm[Hg] [facility] Work Phone: 10-12-2018 09:50-0500 BP Systolic 157 mm[Hg] [facility] Work Phone: 10-12-2018 09:50-0500 Height 169.5 cm [facility] Work Phone: 10-12-2018 09:50-0500 Pulse (Heart Rate) 94 /min [facility] Work Phone: 10-12-2018 09:50-0500 Weight 78.29 kg Alfredito Restrepo [facility] Work Phone: Encounters Encounter Date Encounter Type Care Provider Facility Start: 11-03-2023 End: 11-03-2023 ambulatory ZULY BRUNO Not Available Start: 10-06-2023 ambulatory Angel Carpio [facility],PharmD Pharmacy Outpatient RX [facility] Start: 10-06-2023 Patient encounter procedure Angel Carpio [facility],PharmD Pharmacy Outpatient RX [facility] Start: 09-29-2023 [facility]: [facility] Start: 09-24-2023 [facility] Start: 09-23-2023 [facility] Start: 09-15-2023 [facility] Start: 08-28-2023 End: 09-11-2023 Evaluation and management of inpatient STEVE S YEISON Facility:[facility] Start: 08-28-2023 End: 09-11-2023 Evaluation and management of inpatient Steve S Yeison MBBS Work Phone: [id number] Start: 08-28-2023 ambulatory STEVE S YEISON Facility:[facility] Start: 08-28-2023 End: 08-28-2023 Office outpatient visit 25 minutes Steve S Yeison MBBS Work Phone: [facility] Comment on above: Immunosuppressed sta tus (Primary Dx); Kidney replaced by transplant; Aftercare following organ transplant; High risk medication use; Other general symptoms and signs; Abnormal blood chemistry; Hypertension secondary to other renal disorders Start: 08-19-2023 ambulatory Meka rueda [facility] Pharm[facility] Outpatient [facility] Start: 08-19-2023 Patient encounter procedure Meka Munoz [facility] Outpatient RX [place] Start: 06-12-2023 ambulatory REBECA Fisher ty:[facility] Start: 06-12-2023 End: 06-12-2023 Office outpatient visit 25 minutes Steve S Yeison MBBS Work Phone: [facility] Comment on above: 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) Start: 06-10-2023 ambulatory Maren Bar RPh,PharmD Pharmacy Outpatient RX [facility] Start: 06-10-2023 Patient encounter procedure Maren Bar RPh,PharmD Pharmacy Outpatient RX [place] Start: 05-26-2023 [facility]: [facility] Start: 04-28-2023 End: 04-29-[address] DOCTOR EVANS Facility:[facility] Start: 04-13-2023 End: 04-13-2023 ambulatory [facility] Start: 03-12-2023 ambulatory Angel Fete RPh,PharmD Pharmacy Outpatient RX [facility] Start: 03-12-2023 Patient encounter procedure Angel Fete RPh,PharmD Pharmacy Outpatient RX [place] Start: 03-10-2023 ambulatory Angel Fete RPh,PharmD Pharmacy Outpatient RX [place] Start: 03-10-2023 Patient encounter procedure Angel Fete RPh,PharmD Pharmacy Outpatient RX [place] Start: 03-02-2023 End: 03-03-[address] DOCTOR EVANS Facility:[facility] Start: 01-16-2023 [facility] Start: 01-16-2023 End: 01-16-2023 Office outpatient visit 25 minutes Daisha Max DO Work Phone: [facility] Comment on above: Abnormal blood [...] MD Work Phone: [facility] Comment on above: BPH with obstruction /lower urinary tract symptoms (Primary Dx); Encounter for screening for malignant neoplasm of prostate Start: 08-28-2022 End: 08-29-2022 ambulatory ROB ZULY BRUNO Facility:[facility] Start: 08-14-2022 End: 08-15-[address] DOCTOR EVANS Facility:[facility] Start: 07-07-2022 End: 07-07-2022 Patient encounter procedure Ryan Yepez MD Work Phone: [facility] Comment on above: Other hydronephrosis (Primary Dx); [...] MD Work Phone: [facility] Comment on above: Other hydronephrosis (Primary Dx) [...] Phone: [facility] Comment on above: Immunosuppressed sta tus [...] of inpatient Gian Villatoro MD Work Phone: [id number] Comment on above: [facility] Start: 05-15-2022 End: 05-15-[address] GEORGE ALEXANDER Facility:[facility] Start: 05-11-2022 End: 05-11-[address] GEORGE ALEXANDER Facility:[facility] Start: 03-14-2022 ambulatory Comfort Rivera [facility] Work Phone: Pharmacy Outpatient RX [place] Start: 03-14-2022 Patient encounter procedure Comfort Rivera [facility] Work Phone: Pharmacy Outpatient RX [facility] Start: 06-14-2021 End: 06-14-2021 ambulatory Comfort Chinedu Rivera [facility] Work Phone: [facility] Start: 06-14-2021 Patient encounter procedure Comfort Chinedu Rivera [facility] Work Phone: [facility] Start: 01-20-2020 End: 01-27-2020 Patient encounter procedure PEPE CASE Facility:[facility] Start: 01-06-2020 End: 01-07-2020 Patient encounter procedure [facility] Start: 01-06-2020 End: 01-06-2020 Subsequent hospital visit by physician [facility] Start: 10-24-2019 End: 10-25-2019 [facility] Start: 10-24-2019 End: 10-24-2019 Subsequent hospital visit by physician [facility] Start: 08-27-2019 End: 08-28-2019 Patient encounter procedure [facility] Start: 08-27-2019 End: 08-27-2019 Subsequent hospital visit by physician [facility] Start: 08-08-2019 End: 08-09-2019 Patient encounter procedure ROB PATINO [facility] Start: 08-08-2019 End: 08-08-2019 Subsequent hospital visit by physician [facility] Start: 08-03-2019 End: 08-04-2019 [facility] Start: 08-03-2019 End: 08-03-2019 Subsequent hospital visit by physician [facility] Start: 08-01-2019 End: 08-02-2019 [facility] Start: 08-01-2019 End: 08-01-2019 Subsequent hospital visit by physician [facility] Start: 06-10-2019 End: 06-11-2019 Patient encounter procedure RENA GUDINO [facility] Start: 06-01-2019 End: 06-02-2019 [facility] Start: 01-14-2019 End: 01-15-2019 Patient encounter procedure RENA GUDINO [facility] Start: 11-17-2018 End: 11-17-2018 Patient encounter procedure Melania Dangelo [facility] Pre Transplant Office Comment on above: Social Work Follow-u p Start: 10-19-2018 End: 10-19-2018 Patient encounter [facility] Pre [facility]plant Office Comment on above: Cirrhosis of liver w ithout ascites, unspecified hepatic cirrhosis type (Primary Dx) Start: 10-19-2018 End: 10-19-2018 Office outpatient visit 25 minutes Christin Elizabeth Work Phone: Division of Gastroenterology and Hepatology [place] Comment on above: Alcoholic cirrhosis of liver without ascites (Primary Dx); Pre-transplant evaluation for liver transplant; Hepatic encephalopathy Start: 10-13-2018 End: 10-13-2018 Patient encounter procedure [facility] Pre Transplant Office Comment on above: Reschedule Outside Medical Allan rds Request Start: 10-12-2018 End: 10-12-2018 Patient encounter procedure Sophie Raeann [facility] Pre Transplant Office Comment on above: [...] Start: 10-05-2018 Patient encounter status Comfort Rivera [facility] Work Phone: [facility] Procedures Date Procedure Procedure Detail Performing Clinician [...] Work Phone: Start: 09-06-2023 Hepatic function panel Evan Kelly MD Work Phone: Start: 09-06-2023 Oscillating [...] blood Crow Diaz MD Work Phone: Start: 2 End: 09-02-2023 Cytp slctv cell enhancement interpj [...] AURIS SCREEN BY PCR Carol Ann Capps AVIATION TECHNICIAN AIRCRA[employer]-ASSOCIATE ACCOUNT DIRECTOR Work Phone: Start: 08-28-2023 CBC AND ELECTRONIC [...] MP #### [facility] [address] [place] [address] Dr. Dwight Waters Start: 07-07-2022 Rmvl nfros [...] bct isol&prs mptv id isolate ea urine Vladislva Elizalde MD Work Phone: Start: 05-15-2022 EXTRA MICRO Vladislav sanches MD Work Phone: Start: 05-15-2022 Urnls dip stick/tabl et rgnt auto w/o microscopy Vladislav Elizalde MD Work Phone: Start: 05-15-2022 Assay [...] recipient S/P liver trans plant Comfort Rivera [facility] Work Phone: Start: 04-08-2020 H/O: liver recipient Liver tra nsplant recipient Comfort Rivera [facility] Work Phone: Start: 01-06-2020 Potassium serum plasma/whole [...] transplant -donor kidney transplant recipient Comfort Rivera [facility] Work Phone: Start: 06-10-2019 HEMOGLOBIN AND HEMAT OCRIT, BLOOD ROB KASMANI Start: 06-01-2019 Blood count hemoglobin ROB KASMANI Start: 03-22-2019 Lipid 1996 panel - S fabricio or Plasma Comfort Rivera [facility] Work Phone: Start: 01-14-2019 Potassium serum plasma/whole [...] eb virus viral capsid vca Yovani Mejias [employer] Work Phone: Start: 10-12-2018 End: 10-12-2018 Antibody herpes smplx type 1 Yovani Orr Work Phone: Start: 10-12-2018 End: 10-12-2018 Antibody rubeola Yovani Mejias [employer] Work Phone: Start: 10-12-2018 End: 10-12-2018 Antibody varicella-zoster Yovani [employer] Work Phone: Start: 10-12-2018 End: 10-12-2018 Assay of ethanol Yovani Orr Work Phone: Start: 10-12-2018 End: 10-12-2018 Assay of ferritin Yovani Orr Work Phone: Start: 10-12-2018 End: 10-12-2018 Assay of iron Yovani Mejias [employer] Work Phone: Start: 10-12-2018 End: 10-12-2018 Assay of parathormone Yovani Mejias [employer] Work Phone: Start: 10-12-2018 End: 10-12-2018 Assay of phosphatase alkaline Yovani Mejias [employer] Work Phone: Start: 10-12-2018 End: 10-12-2018 Bilirubin total Yovani Orr Work Phone: Start: 10-12-2018 End: 10-12-2018 Calcium total Yovani Mejias [employer] Work Phone: Start: 10-12-2018 End: 10-12-2018 CBC, EDIF, PLATELET Yovani Orr Work Phone: Start: 10-12-2018 End: 10-12-2018 Creatinine blood Yovani Orr Work Phone: Start: 10-12-2018 End: 10-12-2018 Drug screening cannabinoids natural Yovani Orr Work Phone: Start: 10-12-2018 End: 10-12-2018 Hepatitis a antibody haab Yovani Orr Work Phone: Start: 10-12-2018 End: 10-12-2018 Hepatitis b core antibody hbcab total Yovani Mejias [employer] Work Phone: Start: 10-12-2018 End: 10-12-2018 Hepatitis b surf antibody hbsab Yovani Mejias [employer] Work Phone: Start: 10-12-2018 End: 10-12-2018 Hepatitis c antibody Yovani Mejias [employer] Work Phone: Start: 10-12-2018 End: 10-12-2018 Iaad ia hepatitis b surface antigen Yovani Mejias [employer] Work Phone: Start: 10-12-2018 End: 10-12-2018 Iaad ia hiv-1 ag w/hiv-1 & hiv-2 antbdy single Yovani Orr Work Phone: Start: 10-12-2018 End: 10-12-2018 PSA screening Yovani Orr Work Phone: Start: 10-12-2018 End: 10-12-2018 Thromboplastin time partial plasma/whole blood Yovani Orr Work Phone: Start: 10-12-2018 End: 10-12-2018 Assay of ethanol Yovani Mejias [employer] Work Phone: Start: 10-12-2018 End: 10-12-2018 Drug/substance [...] 08-31-2024 Screening for malignant neoplasm of lung [facility] Start: 06-17-2024 End: 06-17-2024 ambulatory [facility] Start: 06-17-2024 End: 06-17-2024 Patient encounter procedure [facility] Start: 03-22-2024 Fasting lipid profile LIPID SCREENING [facility] Start: 03-22-2024 Lipid panel [facility] Start: 01-15-2024 End: 01-15-2024 ambulatory [facility] Start: 01-15-2024 End: 01-15-2024 Patient encounter procedure [facility] Start: 12-08-2023 End: 09-07-2024 CT Chest WO contrast [facility] Work Phone: Start: 09-23-2023 End: 09-23-2023 ambulatory [facility] [facility] Start: 09-23-2023 End: 09-23-2023 Telemedicine consultation with patient 09/23/2023 4:00 PM EDT Telemedicine Infectious Diseases [facility] [address] [place] [address] Hakeem Aalmo MD [address] [place] [address] [facility] Start: 09-15-2023 End: 09-10-2024 ITRACONAZOLE LEVEL [facility] Start: 08-25-2023 End: 08-25-2024 ALLOSCREEN RECIPIENT (POST TX PRA) ALLOSCREEN RECIPIENT (POST TX PRA) Lab Routine Kidney replaced by transplant Aftercare following organ transplant Immunosuppressed status High risk medication use Other general symptoms and signs Abnormal blood chemistry Expected: 08/25/2023, Expires: 08/25/2024 [facility] Comment on above: Expected: 08/25/2023, Expires: Start: 07-31-2023 Influenza vaccination [facility] Start: 06-12-2023 End: 06-12-2023 Patient encounter procedure 06/12/2023 Office Visit Transplant Surgery Steve Latham MBBS [address] [place] [address] [facility] Start: 03-11-2023 End: 03-11-2023 Telemedicine consultation with patient 03/11/2023 Telemedicine Urology Ryan Yepez MD [address] [facility] [address] [place] [address] [facility] Start: 01-16-2023 End: 01-16-2023 Patient encounter procedure 01/16/2023 Office Visit Transplant Surgery [facility] Start: 10-31-2022 End: 10-31-2022 Patient encounter procedure 10/31/2022 Office Visit Transplant Surgery Steve Latham MBBS [address] [place] [address] [facility] Start: 09-10-2022 End: 09-10-2023 PSA screening PSA, SCREENING Lab Routine BPH with obstruction/lower urinary tract symptoms Encounter for screening for malignant neoplasm of prostate Expected: 09/10/2022 (Approximate), Expires: 09/10/2023 [facility] Comment on above: Expected: 09/10/2022 (Approximate), Expi res: 09/10/2023 Start: 08-11-2022 End: 08-11-2022 Patient encounter procedure 08/11/2022 Office Visit UrologRyan Batista MD [address] [place] [address] [address] [place] [address] [facility] Start: 07-31-2022 Influenza vaccination [facility] Start: 07-07-2022 End: 07-07-2022 Patient encounter procedure 07/07/2022 Office Visit Ryan Webster MD [address] [place] [address] [address] [place] [id number] [facility] Start: 07-07-2022 End: 07-07-2023 FLUORO IMAGING FOR UROLOGY [facility] Comment on above: Expected: 07/07/2022, Expires: 3 1 Occurrences starti ng 07/07/2022 until 07/07/2022 Start: 06-27-2022 End: 06-27-2022 Patient encounter procedure 06/27/2022 Office Visit Ryan Webster MD [address] [place] [address] [address] [place] [address] [facility] Start: 06-27-2022 End: 06-27-2023 Basic metabolic 2000 panel - Serum or Plasma BASIC METABOLIC PANEL Lab Routine Other hydronephrosis Expected: 06/27/2022, Expires: 06/27/2023 [facility] Comment on above: Expected: 06/27/2022, Expires: 3 Start: 06-27-2022 End: 06-27-2022 Patient encounter procedure 06/27/2022 Appointment Computerized Tomography Scan Ryan Yepez MD [address] [facility] [address] [place] [address] Department of Radiology Start: 06-15-2022 End: 05-16-2023 CT Abdomen and Pelvis WO contrast CT ABDOMEN/PELVIS WITHOUT CONTRAST Imaging Routine FAYE (acute kidney injury) Expected: 06/15/2022 (Approximate), Expires: 05/16/2023 [facility] Work Phone: Comment on above: Expected: 06/15/2022 (Approximate), Expi res: 05/16/2023 Start: 06-12-2022 End: 06-12-2022 Patient encounter procedure 06/12/2022 Office Visit Transplant Surgery Steve Latham MBBS [address] [place] [address] [facility] Start: 06-11-2022 End: 06-11-2023 BK VIRUS DNA QN, PCR, PLASMA BK VIRUS DNA QN, PCR, PLASMA Lab Routine Kidney replaced by transplant Liver replaced by transplant Abnormal blood chemistry Expected: 06/11/2022, Expires: 06/11/2023 [facility] Comment on above: Expected: 06/11/2022, Expires: 3 Start: 06-04-2022 End: 06-04-2022 Patient encounter procedure 06/04/2022 Office Visit Interventional Radiology [facility] Start: 10-18-2021 End: 10-18-2021 Patient encounter procedure 10/18/2021 Office Visit Transplant Surgery Steve Latham MBBS [address] [place] [address] [facility] Start: 07-31-2021 Influenza vaccination INFLUENZA VACCINE (#1) [facility] Start: 07-26-2021 End: 07-26-2021 Patient encounter procedure 07/26/2021 Office Visit Transplant Surgery [facility] Start: 2021 Prostate specific antigen measurement [facility] Start: 2021 Screening for malignant neoplasm of lung LUNG CANCER SCREENING [facility] Start: 2021 Zoster vaccine hzv live for subcutaneous use ZOSTER (SHINGLES) VACCINE (1 of 2) [facility] Start: 09-20-2020 Colonoscopy COLORECTAL CANCER SCREENING DISCUSSION [facility] Start: 09-20-2020 Screening for malignant neoplasm of colon [facility] Start: 07-31-2019 Influenza vaccination Flu vaccine (#1) [place], [place] Start: 05-22-2019 Annual Wellness Visit (AWV) Annual Wellness Visit (AWV) [place] Start: 04-18-2019 End: 10-19-2019 Ultrasonography of abdomen US ABDOMEN RUQ/LIVER/GB Routine Cirrhosis of liver without ascites, unspecified hepatic cirrhosis type Expected: 04/18/2019 (Approximate), Expires: 10/19/2019 [facility] Work Phone: Comment on above: Expected: 04/18/2019 (Approximate), Expi res: 10/19/2019 Start: 01-25-2019 End: 01-25-2019 Ambulatory 01/25/2019 Office Visit Gastroenterology Christin Elizabeth, AVIATION TECHNICIAN AIRCRAFT-MOTORBOAT MECHANIC HELPER [address] [place] [address] Division of Gastroenterology and Hepatology Gavin Start: 11-19-2018 End: 11-19-2018 Ambulatory 11/19/2018 Appointment Pulmonary Diagnostics [facility] Start: 11-19-2018 End: 11-19-2018 [facility] Start: 10-19-2018 End: 10-19-2018 Ambulatory Ultrasound Jakob Start: 10-12-2018 End: 10-12-2019 Hemoglobin A1c/Hemoglobin.total mass fraction (Bld) HEMOGLOBIN A1C Routine Alcoholic cirrhosis, unspecified whether ascites present Pre-transplant evaluation for liver transplant Expected: 10/12/2018, Expires: 10/12/2019 [facility] Work Phone: Comment on above: Expected: 10/12/2018, Expires: 9 Start: 10-12-2018 End: 10-12-2019 TYPE AND SCREEN - NOT FOR TRANSFUSION TYPE AND SCREEN - NOT FOR TRANSFUSION Routine Alcoholic cirrhosis, unspecified whether ascites present Pre-transplant evaluation for liver transplant Expected: 10/12/2018, Expires: 10/12/2019 [facility] Work Phone: Comment on above: Expected: 10/12/2018, Expires: 9 Start: 07-31-2018 Influenza vaccination INFLUENZA VACCINE (#1) [facility] Work Phone: Start: 2011 Fasting lipid profile LIPID SCREENING [facility] Work Phone: Start: 2011 Lipid screen Lipid screen [place], [place] Start: 1990 DTaP/Tdap/Td vaccine (1 - Tdap) DTaP/Tdap/Td vaccine (1 - Tdap) [place] Start: 1990 Hepatitis B Vaccine (1 of 3 - Risk Recombivax 3-dose series) Hepatitis B Vaccine (1 of 3 - Risk Recombivax 3-dose series) [place] Start: 1990 Third diphtheria, tetanus and acellular pertussis (DTaP) vaccination [facility] Start: 1990 Zoster vaccine hzv live for subcutaneous use ZOSTER (SHINGLES) VACCINE (1 of 2) [facility] Start: 1990 [facility] Start: 1989 Tetanus vaccination TETANUS [facility] Start: 1986 HIV screen HIV screen [place] Start: 02-17-1984 HIV screening HIV SCREENING DISCUSSION [facility] Work Phone: Start: 1983 COVID-19 VACCINE (1) COVID-19 VACCINE (1) [facility] Start: 1982 DTaP/Tdap/Td vaccine (1 - Tdap) DTaP/Tdap/Td vaccine (1 - Tdap) [place] Start: 1977 Pneumococcal 0-64 years Vaccine (1 of 3 - PCV13) Pneumococcal 0-64 years Vaccine (1 of 3 - PCV13) [place] Start: 1977 PNEUMOCOCCAL VACCINE SERIES (1 - PCV) PNEUMOCOCCAL VACCINE SERIES (1 - PCV) [facility] Start: 1977 [facility] Start: 02-17-1976 COVID-19 VACCINE (#1) COVID-19 VACCINE (#1) [facility] Start: 02-17-1976 [facility] Start: 1971 COVID-19 VACCINE (#1) COVID-19 VACCINE (#1) [facility] Start: 1971 Hepatitis B vaccination HEP B VACCINE (1 of 3 - 3-dose series) [facility] Start: 1971 Tetanus vaccination [facility] BK VIRUS DNA QN, PCR , PLASMA BK VIRUS DNA QN, PCR, PLASMA Lab Routine Kidney replaced by transplant Liver replaced by transplant Abnormal blood chemistry 06/12/2022 3:38 PM EDT [facility] CALCULI, URINARY (KIDNEY STONE) CALCULI, URINARY (KIDNEY STONE) Fluids Routine 05/19/2022 8:16 AM EDT [facility] Work Phone: CANNABINOIDS, QUANT (URINE)THC CONFIRMATION CANNABINOIDS, QUANT (URINE)THC CONFIRMATION Routine Alcoholic cirrhosis, unspecified whether ascites present ESRD (end stage renal disease) on dialysis Pre-transplant evaluation for liver transplant 10/12/2018 12:57 PM EST [facility] Work Phone: End: 09-10-2024 CHEM 6 (LYTES, BUN CREA) [facility] EBV VCA IGG AB EBV VCA IGG AB R outine Alcoholic cirrhosis, unspecified whether ascites present ESRD (end stage renal disease) on dialysis Pre-transplant evaluation for liver transplant 10/12/2018 12:57 PM [facility] Work Phone: Fungus identified in Unspecified specimen by Culture [facility] HLA TYPING (SOLID ORGAN) HLA TYPING (SOLID ORGAN) Routine Alcoholic cirrhosis, unspecified whether ascites present ESRD (end stage renal disease) on dialysis Pre-transplant evaluation for liver transplant 10/12/2018 12:57 PM [facility] Work Phone: HSV 1 AND 2 IGG ANTIBODY HSV 1 AND 2 IGG ANTIBODY Routine Alcoholic cirrhosis, unspecified whether ascites present ESRD (end stage renal disease) on dialysis Pre-transplant evaluation for liver transplant 10/12/2018 12:57 PM [facility] Work Phone: 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 specific culture [facility] PLACEMENT NEPHROSTOM Y CATHETER PERCUTANEOUS W/ IMAGE GUIDANCE PLACEMENT NEPHROSTOMY CATHETER PERCUTANEOUS W/ IMAGE GUIDANCE Imaging Routine Hydronephrosis due to obstruction of ureteral orifice FAYE (acute kidney injury) 05/17/2022 11:08 AM EDT [facility] NM POST VOID RESIDUAL NM POST VO ID RESIDUAL NM - OFFICE PERFORMED Routine BPH with obstruction/lower urinary tract symptoms Ordered: 09/10/2022 [facility] Comment on above: Ordered: 09/10/2022 PTH INTACT PTH INTACT Routi ne Alcoholic cirrhosis, unspecified whether ascites present ESRD (end stage renal disease) on dialysis Pre-transplant evaluation for liver transplant 10/12/2018 12:57 PM [facility] Work Phone: RUBEOLA IGG AB (IMMU NE STATUS) RUBEOLA IGG AB (IMMUNE STATUS) Routine Alcoholic cirrhosis, unspecified whether ascites present ESRD (end stage renal disease) on dialysis Pre-transplant evaluation for liver transplant 10/12/2018 12:57 PM [facility] Work Phone: End: 09-10-2024 TACROLIMUS LEVEL, TROUGH (PRE DRUG LEVEL) [facility] VARICELLA IGG AB (IM M STATUS) VARICELLA IGG AB (IMM STATUS) Routine Alcoholic cirrhosis, unspecified whether ascites present ESRD (end stage renal disease) on dialysis Pre-transplant evaluation for liver transplant 10/12/2018 12:57 PM EST [facility] Work Phone: Payers Date Payer Category Payer Unknown [id number] 2019 Unknown [facility] [id number] 2019-Present [id number] 2018 Medicaid MEDICAID [facility] DEPT OF JOB xxxxxxxxxxxx 2018-Present [phone] [address] [place] [address] xxxxxxxxxxxx [id number] 2018 Medicaid MEDICAID MEDICAI D [id number] 2018-Present [address] [place] [address] [id number] [id number] 2018 Medicaid [id number] .[id number] 2018 Medicare MEDICARE MEDICAR E PART A AND B xxxxxxxxxxx 2018-Present [phone] [address] [address] [place] [address] xxxxxxxxxxx [id number] [id number] 2018 Medicare [id number] 2018 Medicare MEDICARE MEDICAR E A AND B [id number] 2018-Present [address] [place] [address] [id number] .[id number] 2018 Medicare [id number]. 1.13.172.2.7.3 .148379.315 1971 Unknown [id number] 2.16.840.1.256441.3.579.2.173 1971 Unknown [id number] 2.16.840.1.894312.3.579.2.173 1971 Unknown [id number] 2.16.840.1.990939.3.579.2.173 1971 Unknown [id number] 2.16.840.1.596214.3.579.2.173 1971 Unknown [id number] 2.16.840.1.216326.3.579.2.173 1971 Unknown [id number] 2.16.840.1.102478.3.579.2.173 1971 Unknown [id number] 2.16.840.1.398161.3.579.2.173 1971 Unknown [id number] 2.16.840.1.894564.3.579.2.173 1971 Unknown [id number] 2.16.840.1.745067.3.579.2.647 1971 Unknown [id number] 2.16.840.1.630796.3.579.2.593 1971 Unknown [id number] 2.16.840.1.726280.3.579.2.593 1971 Unknown [id number] 2.16.840.1.198194.3.579.2.593 1971 Unknown [id number] 2.16.840.1.491895.3.579.2.593 1971 Unknown [id number] 2.16.840.1.622316.3.579.2.593 1971 Unknown [id number] 2.16.840.1.643630.3.579.2.593 1971 Unknown [id number] 2.16.840.1.090203.3.579.2.593 1971 Unknown [id number] 2.16.840.1.244796.3.579.2.593 1971 Unknown [id number] 2.16.840.1.290965.3.579.2.593 1971 Unknown [id number] 2.16.840.1.719328.3.579.2.593 1971 Unknown [id number] 2.16.840.1.796902.3.579.2.593 1971 Unknown [id number] 2.16.840.1.454176.3.579.2.593 1971 Unknown [id number] 2.16.840.1.221998.3.579.2.593 1971 Unknown [id number] 2.16.840.1.160402.3.579.2.593 1971 Unknown [id number] 2.16.840.1.830038.3.579.2.593 1971 Unknown [id number] 2.16.840.1.371250.3.579.2.594 1971 Unknown [id number] 2.16.840.1.208050.3.579.2.594 1971 Unknown [id number] 2.16.840.1.857823.3.579.2.594 1971 Unknown [id number] 2.16.840.1.808470.3.579.2.594 1971 Unknown [id number] 2.16.840.1.561996.3.579.2.594 1971 Unknown [id number] 2.16.840.1.950650.3.579.2.594 1971 Unknown [id number] 2.16.840.1.952972.3.579.2.594 1971 Unknown [id number] 2.16.840.1.103937.3.579.2.594 1971 Unknown [id number] 2.16.840.1.532123.3.579.2.594 1971 Unknown [id number] 2.16.840.1.610916.3.579.2.125 9 1958 Medicaid [id number] 1958 Medicare [id number] Social History Date Type Detail Facility Start: 07-19-2018 End: 10-19-2018 Tobacco smoking status NHIS Former smoker [facility] Start: 07-19-1988 End: 05-14-2018 History of tobacco use Current smoker [facility] Work Phone: Start: 07-19-1988 End: 05-14-2018 History of tobacco use Cigarette Smoker [facility] Work Phone: Start: 10-19-2018 End: 09-26-2023 Cigarettes smoked current (pack per day) - Reported [facility] Work Phone: End: 07-19-1994 History of tobacco use Chews Tobacco [facility] Work Phone: Start: 1970 Sex Assigned At Not on file [facility] Work Phone: Start: 11-03-2018 Alcohol intake Current non-dr teamsite developer of alcohol (finding) [place] Start: 06-22-2018 Alcohol Comment Hx of alcoholism [place], [place] Start: 11-03-2018 End: 09-26-2023 Alcohol intake No [place] Start: 07-19-2018 Tobacco use and exposure Former user [facility] Start: 09-06-2020 End: 09-26-2023 Alcohol intake Ex-drinker (finding) [facility] Start: 07-19-2018 Alcohol Comment stopped 05/14/[address] [facility] Start: 05-05-2022 End: 01-16-2023 Exposure to SARS-CoV-2 (event) Not sure [facility] Start: 07-07-2018 Gender identity Identifies as male gender (finding) [facility] Start: 01-16-2022 Sexual orientation Heterosexual (scooby kc) [facility] Medical Equipment Procedure Code Equipment Code Equipment Original Text Equipment Identifier Dates [id number] Start: 05-23-2020 [id number] Start: 04-12-2020 [id number], [id number] FDA Start: 05-17-2022 Comment on above: Description: Implant time-out completed by intra-procedural staff including this RN, histology technician, and performing physician. The following was [...] ; Prograf 0.2 MG Contact Info: Specialty ([place]) [phone] [facility] [phone] [facility] [phone] [facility] [phone] Bedside Delivery ([facility]) [phone] [facility] RX OUTREACH ADVANCED: Call Information: Date and Time of Contact: 10/23/2023 2:00 PM Method of Contact: By Phone Contact Type: Prescriptions Contactor: [facility] Contactee: Patient Contact Outcome: Left message and Call back later Shipping/Pickup: Medication Name: Mycophenolate 360mg and Prograf 0.2mg Contact Info: Specialty ([place]) [phone] [facility] [phone] [facility] [phone] [facility] [phone] Bedside Delivery ([facility]) [phone] documented in this encounter [facility] 09-11-2023 Miscellaneous Notes Pt discharged home with [...] the oxygen during the night. pt will picker box operator his oxygen from [employer] [facility], 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 This [...] Patient seen ambulating in the velazquez with SOFTWARE TEST ENGINEER. Patient was mildly short of breath on [...] of Stay: 7 days Impression & Recommendations: George Styles is [...] & HR 114. Messaged Mainor Loomis, via [employer] secure chat, Temp 100.8. His tylenol order [...] short period of time. 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 Episode of [...] Critical Care Medicine Message Mainor Loomis, via [employer] secure chat, Good evening, just an FYI, [...] short period of time. 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 This morning, [...] [address] Loera here also (transit authority police officer) Dr. Diaz aware of pt's increased oxygen [...] Medicine-Pediatrics, PGY-2 Mr. Styles was admitted to [address] [place] [address]. On admission to [facility], from home a [...] [facility] History of Present illness Narrative Provided follow-up emotional and spiritual support. Patient shared about rosemary of discharge and looking forward to seeing family Sap Pp Consultant provided: - Supportive presence - Active listening - Validation of feelings/emotions Patient encouraged to request a rv service technician as needed. Chaplains are available in-house 24 hours a day and 7 days a week. For urgent matters in [facility], please page [phone]. If the request is not urgent, please enter a consult. Consults are responded to within 24 hours. Senior Staff Sap Pp Consultant Angie Singh Mdiv, [facility] [place] [phone] [email or web address] 22/06 On-call Kirk: [phone] 22/06 Pager ,[facility], and Brock Hernandez Pager [phone] 09/11/23 3012 Clinical Encounter Type Visited With Patient Visit Type Follow-up Pastoral Time Spent 15 min Referral Other (See Comment) (rounding) Spiritual Assessment Spiritual Observation Spirituality helpful Emotional Observation Coping well Hope Observation Specific hope focus Support Observation By Family Interventions Provided Active listening;Supportive presence Facilitated Verbalization of feelings Explored Expectations Plate Preparer Education Plate Preparer Service Available Yes Educated Patient Plan of Care Continue Visiting PRN Images from the original note were not included. [facility] ([facility] Note: Non-Verbal Med Rec [facility] received the following discharge prescription(s): Total cost is $0. I have reviewed the Discharge Rx Reconciliation Report. The discharge prescription(s) will be delivered to the patient on 09/11/2023. Dimitrios Gurrola RPh,PharmD Specialty ([place]) [phone] [facility] [phone] [facility] Bedside Delivery [phone] [facility] [phone] [facility] Bedside Delivery [phone] [place] [phone] [facility] Bedside Delivery [phone] [place] [phone] [place] [phone] Internal Medicine Daily Progress Note Patient: George Styles, 1970, [id number] Physician: Evan Kelly MD, PGY-1, TM1 service Subjective/Interval History: Patient continues to require oxygen overnight for desaturations. With insurance limitations, only accepting agency to provide home oxygen backed out. After calling them to discuss, Lynn stated she would be willing to have patient drive to their facility to picker box operator supplies, however they close at 5pm. 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 His [place] kidney disease was noted to be presumed [...] losartan 50mg BID CAD: non-obstructive CAD on [facility] 2018. - continue home aspirin 81mg [...] 5.05 (H) 11/19/2018 Kevin Sage MD, SERA Retirement Manager of Clinical Medicine [facility] Images from the original note were not included. Final Discharge Planning and Transportation Final Discharge Planning Discharge Disposition: Home Services at Discharge: Outpatient clinical services (ie: lab draws, transfusions, injectables) (Home Oxygen by [facility]) Selected Continued Care - Admitted Since 08/28/2023 Durable Medical Equipment Coordination complete. Service Provider Selected Services Address Phone Fax Patient Preferred [employer] [facility] D[facility] Medical Equipment [address] [facility] [phone] Internal Comment last updated by Lora Alexander RN 09/10/2023 1334 Correct contact information: [employer] [address] [place] [address] [place] [address] project eng- you do not need to call at discharge, I already notified the company. Addendum 1528 [facility] notified this CM they are out of patient's insurance area and will not be able to service this patient at time of discharge. Provider notified. Addendum [phone] Dr Kelly called [facility] spoke to Lynn and she said they are willing to accept patient if the patient would drive to the [place] office and picker box operator the supplies. Patient is willing to do [...] Lora Colón RN, MSN, CCM, CMCN Clinical Airborne Sensor Specialist- [facility] Transplant #[phone] Department of Pharmacy Transplant Note Patient: George [...] dose adjustment Name: Matt Kramer RPh,Frankie Phone: [phone] Date/Time: 09/10/2023 11:33 AM This CM sent referral via [employer] for O2 concentrator to [facility] Start date today Timer set for 1330 [employer] [facility] Assist Addendum 0113 One accepting company reserved in [address] [place] [address] Lora Colón RN, MSN, CCM, CMCN Clinical Airborne Sensor Specialist- [facility] Transplant #[phone] NUTRITION FOLLOW-UP Nutrition Plan of Care: 1. Continue current diet order. 2. No oral supplements warranted at this time. 3. Monitor for significant weight changes. Monitor GI, skin integrity. 4. Monitor and encourage po intakes with goal of average po being 75-100%. 5. telecom field technician to follow. ___ Met with patient today [...] time. Will continue to monitor. RHIANNON BirminghamR Pager:[phone] Transplant Infectious Disease (Team 3) Progress Note [...] sign off. Please Epic message or page [phone] with questions. 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 His [place] kidney disease was noted to be presumed [...] losartan 50mg BID CAD: non-obstructive CAD on [facility] 2019. - continue home aspirin 81mg [...] to follow. Please Epic message or page [phone] with questions. 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 His [place] kidney disease was noted to be presumed [...] losartan 50mg BID CAD: non-obstructive CAD on [facility] 2018. - continue home aspirin 81mg daily, holding atorvastatin 20mg daily Gout: continue home allopurinol 200mg daily BPH: continue home flomax 0.4mg daily DVT PPX: SQH Code Status: Full Code Disposition: Pending clinical course. Anticipate eventual discharge home. Discussed with team and attending, Kevin Sage MD, on rounds. 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 His [place] kidney disease was noted to be presumed [...] losartan 50mg BID CAD: non-obstructive CAD on [facility] 2018. - continue home aspirin 81mg [...] 5.05 (H) 11/19/2018 Kevin Sage MD, SERA Retirement Manager of Clinical Medicine [facility] Transplant Infectious Disease (Team [...] to follow. Please Epic message or page [phone] with questions. Ann Marie Haskins MD PGY-4, [...] he continues to improve. Please message via [employer]dcube secure chat or page with any questions or concerns. Evan White DO Retirement Manager Division of Infectious Disease Transplant Infectious Disease [...] to follow. Please Epic message or page [phone] with questions. Evan White DO Transplant Infectious Diseases Images from the original note were not included. Pulmonary/Critical Care Medicine Daily Progress Note Reason for Consultation: bronch for infectious workup Requesting Physician: Dr. Sage CURRENT HOSPITALIZATION: [facility]: [facility] days Impression 1. Acute [...] and interpreted reviewed the radiographic data in [employer]. 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 His [place] kidney disease was noted to be presumed [...] losartan 50mg BID CAD: non-obstructive CAD on [facility] 2018. - continue home aspirin 81mg [...] 5.05 (H) 11/19/2018 Kevin Sage MD, MADISONN Retirement Manager of Clinical Medicine [facility] Images from the original note were not included. Pulmonary/Critical Care Medicine Daily Progress Note Reason for Consultation: bronch for infectious workup Requesting Physician: Dr. Sage CURRENT HOSPITALIZATION: Admit Date: 08/28/2023 [facility] LOS: 8 days Impression 1. Acute [...] and interpreted reviewed the radiographic data in [facility] [facility]. Acute Occupational Therapy Evaluation Prior to [...] Assessment: Transfer Assessment: Sit to Stand Transfer [place] Level: Sit->Stand: independent Skilled Intervention/Details: Sit->Stand: x1 from EOB, x1 from toilet Stand to Sit Transfer [place] Level: Stand->Sit: independent Skilled Intervention/Details: Stand->Sit: x1 to toilet, x1 to EOB Functional Mobility: Functional Mobility [place] Level: Functional Mobility/Gait: independent Ambulation Distance (Feet): 20 Skilled Intervention/Details - Functional Mobility/Gait: pt performed functional mobility to/from RR w/ no overt LOB Outcome Score(s): CURRENT [facility] Daily Activity Inpatient Short Form Putting on/Taking Off Lower Body Clothin - A Little Assistance Bathin - A Little Assistance Toiletin - A Little Assistance Putting on/Taking Off Upper Body Clothin - No Assistance Groomin - No Assistance Eatin - No Assistance CURRENT [facility] Activity Raw Score: 21 CURRENT [facility] Activity Functional Limitation/Modifier: 32.79% Currently Impaired in [...] Acute Physical Therapy Evaluation Prior to Admission [facility] score(s): PRIOR LEVEL AM-PAC Mobility Raw Score: [...] Intact Mobility Assessment: Supine to Sit Mobility [place] Level: Supine->Sit: modified independence Bed Features/Set-up: Supine->Sit: Head of bed elevated Sit to Supine Mobility [place] Level: Sit->Supine: not tested Balance: Sitting Balance [...] environment. Transfer Assessment: Sit to Stand Transfer [place] Level: Sit->Stand: independent Skilled Intervention/Details: Sit->Stand: From EOB x 2 without difficulty. Stand to Sit Transfer [place] Level: Stand->Sit: independent Assistive Device: Stand->Sit: armed chair Skilled Rationale: Verbal cues, Positioning Gait/Functional Mobility: Gait Assessment [place] Level: Gait: stand-by assist Assistive Device: Gait: rollator Ambulation Distance (Feet): 400 Gait Deviations Identified: decreased grace, decreased gait speed Gait Skilled Rationale: verbal, upright posture, increase step length, increase foot clearance Skilled Intervention/Details - Gait: Reasonable foot clearnce without loss of balance but endorsing dyspnea as 6-7/10. 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 His [place] kidney disease was noted to be presumed [...] losartan 50mg BID CAD: non-obstructive CAD on [facility] 2018. - continue home aspirin 81mg [...] 5.05 (H) 11/19/2018 Kevin Sage MD, SERA Retirement Manager of Clinical Medicine [facility] Transplant Infectious Disease (Team [...] to follow. Please Epic message or page [phone] with questions. Evan White DO Transplant Infectious Diseases Images from the original note were not included. 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 His [place] kidney disease was noted to be presumed [...] losartan 50mg BID CAD: non-obstructive CAD on [facility] 2019. - continue home aspirin 81mg [...] P 450 system Kevin Sage MD, SERA Retirement Manager of Clinical Medicine [facility] ERT Note: ERT called [...] MD, PhD Internal Medicine and Pediatrics PGY-3 [facility] Brief plan of care update: Called [...] MD, PhD Internal Medicine and Pediatrics PGY-3 [facility] Transplant Infectious Disease (Team 3) Progress [...] to follow. Please Epic message or page [phone] with questions. 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 His [place] kidney disease was noted to be presumed [...] 2/2 renal function CAD: non-obstructive CAD on [facility] 2018. 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 His [place] kidney disease was noted to be presumed [...] 2/2 renal function CAD: non-obstructive CAD on [facility] 2018. - continue home aspirin 81mg [...] 5.05 (H) 11/19/2018 Kevin Sage MD, SERA Retirement Manager of Clinical Medicine [facility] [employer] [facility] Comprehensive Transplant [...] Lora Colón RN, MSN, CCM, CMCN Clinical Airborne Sensor Specialist- R10 Transplant #[phone] Made introductory visit with patient. Provided emotional and spiritual support. Patient shared about: - Source of Rosemary: Camping/Fishing/Family - Spirituality/Presybeterian Affiliation: raised Muslim - Family Support/history - Experience with illness/hospital course - Hopes for healing/future Sap Pp Consultant provided: - Supportive presence - Active listening - Validation of feelings/emotions - Pledged prayer Patient encouraged to request a rv service technician as needed. Chaplains are available in-house 24 hours a day and 7 days a week. For urgent matters in [facility], please page [phone]. If the request is not urgent, please enter a consult. Consults are responded to within 24 hours. Senior Staff Sap Pp Consultant Angie Singh Mdiv, [facility] Kirk [phone] [email or web address] 22/06 On-call [place]: [phone] 22/06 Pager ,BS, and Brock Hernandez Pager [phone] 09/02/23 1117 Clinical Encounter Type Visited With Patient Visit Type Introduction Pastoral Time Spent 15 min Referral Other (See Comment) (rounding) Spiritual Assessment Spiritual Observation Spirituality helpful Emotional Observation Coping well [place] Observation Specific hope focus Support Observation By Family Interventions Provided Active listening;Supportive presence Facilitated Verbalization of feelings Explored Expectations Plate Preparer Education Plate Preparer Service Available Yes Educated Patient Outcomes Patient Outcomes Reduced distress Plan of Care Continue Visiting PRN NUTRITION RISK SCREENING NOTE Nutrition Plan of Care: 1. Continue current diet order. 2. No oral supplements warranted at this time. 3. Monitor for significant weight changes. Monitor GI and skin integrity. 4. Monitor and encourage po intakes with goal of average po being 100%. 5. telecom field technician to follow. George Styles is a 53 y.o. 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 His [place] kidney disease was noted to be presumed hepatorenal syndrome. His post-transplant course was noteworthy for nephrostomy tube (05/17/2022-09/10/2022) due to concern for ureteral stone. He presents as a direct admission for fever, cough, for infectious workup. Pt unavailable and information obtained via chart review B2B Sales Consultant Screening Pt's appetite is good. Pt with [...] with meds Food Allergies reviewed:Shellfish Cultural or Presybeterian Restrictions/Preferences: None GI: Last Bowel Movement: 09/01/23 [...] time. Will continue to monitor. RHIANNON [place]R Pager:[phone] Internal Medicine Daily Progress Note Patient: George Stylse, 1970, [id number] Physician: Evan Kelly MD, PGY-1, TM1 service [...] 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 His [place] kidney disease was noted to be presumed [...] 2/2 renal function CAD: non-obstructive CAD on [facility] 2018. - continue home aspirin 81mg [...] as outlined above. Kevin Sage MD Pager [phone] Summary: Pharmacy Med Rec Department of Pharmacy [...] Provider: Zuly Bruno NP Pharmacy: [facility] Other Comments: Patient reported his Last Home Dose of mycophenolate & tacrolimus was on 08/28/23 at 0900. Patient reported he was taking Bactrim and benzonatate for fevers and a cough he was having. Please feel free to contact me with any further questions. Name: Heidy Chatman Phone #: [phone] Date/Time: 09/01/2023 2:01 PM Time Spent: 15 minutes Associated attestation - Matt Kramer RPh,PharmD - 09/01/2023 2:28 PM EDT Department of Pharmacy Admission Medication Reconciliation Note Patient: George Styles Room/Bed: 1062/A I have reviewed the home medication list with the Freight Claim Investigator. All changes to the home medication list have been updated in [facility]. Updated DIGITAL ASSET SPECIALIST Med List: Prior to Admission Medications Prescriptions [...] questions. Name: Matt Kramer RPh,PharmD Phone #: [phone] Date/Time: 09/01/2023 2:28 PM Transplant Infectious Disease [...] crypto antigen, EBV PCR -follow pending histo, [email or web address] labs These recommendations were discussed with the primary team. Transplant ID (Team 3) will continue to follow. Please Epic message or page [phone] with questions. Evan White DO Transplant Infectious Diseases Internal Medicine Daily Progress Note Patient: George Styles, 1970, [id number] Physician: Evan Kelly MD, PGY-1, TM1 service [...] 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 His [place] kidney disease was noted to be presumed [...] 2/2 renal function CAD: non-obstructive CAD on [facility] 2018. - continue home aspirin 81mg [...] 5.05 (H) 11/19/2018 Kevin Sage MD, SERA Retirement Manager of Clinical Medicine [facility] Discharge Planning Patient Assessment [...] Yes Name and Contact information: Gian Styles ([phone]) Reviewed and Updated in Demographics? : Yes Outpatient Providers Does patient have a primary care physician? : Yes When was the patient's last PCP visit?: > 30 days Does the patient follow any specialists?: No Reviewed and updated Care Team?: Yes Patient Care Team: Zuly Bruno CNP as PCP - General Environment/Caregivers Is the patient from a facility or fci?: No Patient lives with: Alone Living Environment: [...] patient on Anticoagulation? : No [id number] [place] [address] [facility] [address] [facility] [address] [facility] [address] Blood Typer Does the patient or safety representative express financial concerns? : No Employed?: Disabled Coping/Stress Concerns about patient s coping and stress?: No Concerns about patient s caregiver s coping and stress?: No Values and Beliefs Cultural or sikhism practices that may impact discharge planning and/or [...] Plan 1. Identified self and role as Airborne Sensor Specialist. 2. Confirmed and updated demographics and treatment team. 3. Airborne Sensor Specialist will continue to follow with medical team/pt for any other additional discharge needs. Kasandra DON RN [facility] [phone] *Please note I am float and work Thursday and Thursday every other week. Please call [phone] for assist in my absence. Internal Medicine Daily Progress Note Patient: George Styles, 1970, [id number] Physician: Evan Kelly MD, PGY-1, TM1 service [...] 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 His [place] kidney disease was noted to be presumed [...] 2/2 renal function CAD: non-obstructive CAD on [facility] 2018. - continue home aspirin 81mg [...] 5.05 (H) 11/19/2018 Kevin Sage MD, SERA Retirement Manager of Clinical Medicine [facility] Internal Medicine Daily Progress Note Patient: George Styles, 1970, [id number] Physician: Laurel Serrano MD, PhD, PGY-3, TM1 [...] 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 His [place] kidney disease was noted to be presumed [...] losartan 50mg BID CAD: non-obstructive CAD on [facility] 2018. - continue home aspirin 81mg daily, atorvastatin 20mg daily Gout: continue home allopurinol 200mg daily BPH: continue home flomax 0.4mg daily DVT PPX: SQH Code Status: Full Code Disposition: Pending clinical course. Anticipate eventual discharge home. Discussed with team and attending, Kevin Sage MD, on rounds. Signed, Laurel Serrano MD, PhD documented in this encounter [facility] 09-10-2023 Hospital Discharge instructions Laurel Serrano [...] a sleep doctor. You will need to picker box operator the oxygen concentrator when you leave the [...] on healthy foods. documented in this encounter [facility] 09-01-2023 Consult note Associated Order (s): IP CONSULT TO PULMONOLOGY Pulmonary Medicine Inpatient Consultation Reason for Consultation: bronch for infectious workup Requesting Physician: Dr. Sage Pulmonary Attending Physician: Dr. Diaz CURRENT HOSPITALIZATION: Admit Date: 08/28/2023 [facility] LOS: 4 days Impression/Recommendations: George Styles [...] Recommendations: - Plan to bronch tomorrow morning. NPO@MD, order placed - would repeat HIV, last [...] short period of time. 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 Other histories as documented in the [...] any ill contacts. [place] [facility] REVIEW OF SYSTEMS A [...] GUIDANCE 05/17/2022 Surgeon: Enzo Heart DO; [facility] INTERVENTIONAL RADIOLOGY (VIR) LIVER TRANSPLANT, ORTHOTOPIC N/A 04/12/2020 Laterality: N/A; Surgeon: LU Palma; Location: [facility] SAME DAY SURGERY MAIN OR KIDNEY TRANSPLANT W/O [place] NEPHRECTOMY N/A 04/12/2020 Laterality: N/A; Surgeon: LU Palma; Location: [facility] SAME DAY SURGERY MAIN OR OTHER [...] Alamo MD I can be reached via Crowdcube secure message (preferred) or Pager #[phone] documented in this encounter [facility] 08-28-2023 History and physical note Images from the original note were not included. Internal Medicine Admission History & Physical Patient: George Styles, 1970, [id number] Physician: Aric Turner MD, PGY1, Pager #[phone], SB service Date of face to face patient [...] So he went to see the transplant psychology physician. He was found elevated Cr and asked [...] Appetite is ok now. Urine is about 1702-5890 ml every day. Stool every day, no [...] GUIDANCE 05/17/2022 Surgeon: Enzo Heart DO; Location: [facility] INTERVENTIONAL RADIOLOGY (VIR) LIVER TRANSPLANT, ORTHOTOPIC N/A 04/12/2020 Laterality: N/A; Surgeon: LU Palma; Location: [facility] SAME DAY SURGERY MAIN OR KIDNEY TRANSPLANT W/O [place] NEPHRECTOMY N/A 04/12/2020 Laterality: N/A; Surgeon: LU Palma; Location: [facility] SAME DAY SURGERY MAIN OR OTHER [...] 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 His [place] kidney disease was noted to be presumed [...] Urinary histoplasmosis - PJP, candid PCR - Bench Assembly Inspector transplant ID Acute Kidney Injury with Kidney [...] losartan 50mg BID CAD: non-obstructive CAD on [facility] 2018. - continue aspirin 81mg daily, [...] Pierson, Luisa Steven, Renee Rivera, Daisha Max Hazardous Waste Management Specialist: José Miguel Garnica All Txt: 04/13/2020 (Kidney), [...] results found for: CYCLOSPORIN , CYCLOSPORIN2 , [id number] , CYCLORAND No results found for: SIROLIMUS [...] Rest as above. Kevin Sage MD Pager [phone] [facility] History of Present illness Narrative Images from the original note were not included. 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 Hazardous Waste Management Specialist: Anayeli Burt Date of Liver Transplant: 04/13/2020 (Kidney), 04/13/2020 (Liver) 3 years 4 months post Liver/Kidney Transplant Primary Disease: Hypertensive Nephrosclerosis Transplant Special Warfare Combatant Crewman: Erma Roe/ Daisha Max Primary Care physician: [...] Preferred Lab: [facility] Change in lab frequency / new order [...] None Specified, [id number] [place] [address] - [address] [facility] [address] [facility] [address] [facility] [address] [facility] [address] [id number] [place] [address] [address] [facility] [address] [facility] [address] [facility] [address], [facility] [address] [address] ROS and SCREEN: Chest Pain: negative Cough: [...] PHYSICIAN: I saw George Styles at the [facility] on 08/28/2023. Patient is a 53 y.o. 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 His [place] kidney disease was noted to be presumed [...] GUIDANCE 05/17/2022 Surgeon: Enzo Heart DO; Location: [facility] INTERVENTIONAL RADIOLOGY (VIR) LIVER TRANSPLANT, ORTHOTOPIC N/A 04/12/2020 Laterality: N/A; Surgeon: LU Palma; Location: [facility] SAME DAY SURGERY MAIN OR KIDNEY TRANSPLANT W/O [place] NEPHRECTOMY N/A 04/12/2020 Laterality: N/A; Surgeon: LU Palma; Location: [facility] SAME DAY SURGERY MAIN OR OTHER [...] you have any questions. Steve Latham MD hand mounter Division of Nephrology [facility] documented in this encounter [facility] 08-28-2023 Instructions Mainor Busby RN - 08/28/2023 2:15 PM EDT - Admission for fevers, cough, and night sweats documented in this encounter [facility] 08-19-2023 History of Present illness Narrative [facility] OP RX OUTREACH ADVANCED: Call Information: Date and Time of Contact: 08/19/2023 2:52 PM Method of Contact: By Phone Contact Type: Prescriptions Contactor: [facility] OP Contactee: Patient Shipping/Pickup: Medicare B Refill?: No Medication Name: Tacro 0.5mg Delivery Method: Air Delivery Location: Home Signature Required: No Mailing/Pickup Date: 08/25/2023 Shipping Address: [address] [place] [address] Contact Info: Specialty ([place]) [phone] [facility] [phone] [facility] [phone] [facility] [phone] Bedside Delivery ([facility]) [phone] documented in this encounter [facility] 06-12-2023 History of Present illness Narrative Images from the original note were not included. George Styles is a 53 y.o. 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 No longer follows with a local psychology physician. History of Present Illness: Since George was [...] records and lab results. Rebeca MITCHELL, RN, AVIATION TECHNICIAN AIRCRAFT-BC, CCTN Certified Nurse Practitioner [facility] Trans[facility] [address] [facility] [address] documented in this encounter [facility] 06-12-2023 Instructions JEANNA Hess - 06/12/2023 3:00 PM EDT No change in immunosuppression. documented in this encounter [facility] 06-10-2023 History of Present illness Narrative [facility] RX OUTREACH ADVANCED: Call Information: Method of Contact: By Phone Contact Type: Prescriptions Contactor: [facility] OP Contactee: Patient Contact Outcome: Left message Shipping/Pickup: Medication Name: Mycophenolate sod 180 mg Contact Info: Specialty ([place]) [phone] [facility] [phone] [facility] [phone] David [phone] Bedside Delivery ([facility]) [phone] [facility] OP RX OUTREACH ADVANCED: Call Information: Date and Time of Contact: 06/12/2023 9:43 AM Method of Contact: By Phone Contact Type: Prescriptions Contactor: [facility] OP Contactee: Patient Contact Outcome: Left message and Follow-up Shipping/Pickup: Medicare B Refill?: No Medication Name: Myco 180 Contact Info: Specialty ([place]) [phone] [facility] [phone] [facility] [phone] David [phone] Bedside Delivery ([facility]) [phone] [facility] OP RX OUTREACH ADVANCED: Call Information: Date and Time of Contact: 06/12/2023 10:08 AM Method of Contact: By Phone Contact Type: Prescriptions Contactor: [facility] OP Contactee: Patient Shipping/Pickup: Medicare B Refill?: No Medication Name: Mycophenolate 180mg DR Delivery Method: Air Delivery Location: Home Signature Required: No Mailing/Pickup Date: 06/17/2023 Shipping Address: [address] [place] [address] Contact Info: Specialty ([place]) [phone] [facility] [phone] [facility] [phone] David [phone] Bedside Delivery ([facility]) [phone] documented in this encounter [facility] 04-13-2023 Note [place] Cardiology - [facility] Subjective George Styles is a 53 [...] Legacy Encounter on (more content not included)... [facility] 03-12-2023 History of Present illness Narrative [facility] OP RX OUTREACH ADVANCED: Call Information: Date and Time of Contact: 03/12/2023 10:34 AM Method of Contact: By Phone Contact Type: Prescriptions Contactor: [facility] OP Contactee: Patient Shipping/Pickup: Medicare B Refill?: No Medication Name: Mycophenoloate sod 360 mg prednisone 5mg Delivery Method: Air Delivery Location: Home Signature Required: No Mailing/Pickup Date: 03/16/2023 Shipping Address: [address] [place] [address] Contact Info: Specialty ([place]) [phone] Jakob [phone] [facility] [phone] David [phone] Bedside Delivery ([facility]) [phone] [facility] OP RX OUTREACH ADVANCED: Call Information: [...] Required: No Mailing/Pickup Date: 03/19/2023 Shipping Address: [address] [place] [address] [address] Contact Info: Specialty ([place]) [phone] [facility] [phone] [facility] [phone] David [phone] Bedside Delivery ([facility]) [phone] documented in this encounter [facility] 03-10-2023 History of Present illness Narrative [facility] OP RX OUTREACH ADVANCED: Call Information: Date and Time of Contact: 03/10/2023 12:00 PM Method of Contact: By Phone Contact Type: Prescriptions Contactor: [facility] OP Contactee: Patient Contact Outcome: Left message and Call back later Shipping/Pickup: Medication Name: Mycophenolate ; Tacrolimus Contact Info: Specialty ([place]) [phone] [facility] [phone] [facility] [phone] David [phone] Bedside Delivery ([facility]) [phone] documented in this encounter [facility] 03-10-2023 History of Present illness Narrative [facility] OP RX OUTREACH ADVANCED: Call Information: Date and Time of Contact: 03/10/2023 12:00 PM Method of Contact: By Phone Contact Type: Prescriptions Contactor: [facility] OP Contactee: Patient Contact Outcome: Left message and Call back later Shipping/Pickup: Medication Name: Mycophenolate ; Tacrolimus Contact Info: Specialty ([place]) [phone] [facility] [phone] [facility] [phone] David [phone] Bedside Delivery ([facility]) [phone] [facility] OP RX OUTREACH ADVANCED: Call Information: Date and Time of Contact: 03/12/2023 10:32 AM Method of Contact: By Phone Contact Type: Prescriptions Contactor: [facility] OP Contactee: Patient Contact Outcome: Left message Shipping/Pickup: Medication Name: Mycophenolate sodium (MYFORTIC) 180 MG Tab tacrolimus 0.5 mg Contact Info: Specialty ([place]) [phone] Jakob [phone] [facility] [phone] David [phone] Bedside Delivery ([facility]) [phone] [facility] History of Present illness Narrative -Referring Provider for today's consult: Daisha Max DO -Primary Care Provider: Zuly Bruno History of Present Illness George Styles is a 52 y.o. male who presents to the [facility] Transplant Hepatology Clinic today for follow-up of [...] GUIDANCE 05/17/2022 Surgeon: Enzo Heart DO; Location: [facility] INTERVENTIONAL RADIOLOGY (VIR) LIVER TRANSPLANT, ORTHOTOPIC N/A 04/12/2020 Laterality: N/A; Surgeon: LU Palma; Location: [facility] SAME DAY SURGERY MAIN OR KIDNEY TRANSPLANT W/O [place] NEPHRECTOMY N/A 04/12/2020 Laterality: N/A; Surgeon: LU Palma; Location: [facility] SAME DAY SURGERY MAIN OR OTHER [...] 0.3 12/29/2022 Explant Pathology Pathologic Diagnosis A. [place] liver, orthotopic liver transplant resection (1458 gram): [...] A/P with IV contrast (06/27/2022): 1. Both [place] kidneys are atrophic with improvement in right-sided [...] frequent nighttime urination, etc). Daisha Max DO Retirement Manager Gastroenterology, Hepatology and Nutrition [facility] Pager: [phone] Images from the original note were not included. 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 Hazardous Waste Management Specialist: Anayeli Burt Date of Liver Transplant: 04/13/2020 (Kidney), 04/13/2020 (Liver) 2 years, 8 months post Liver/Kidney Transplant Primary Disease: Hypertensive Nephrosclerosis Transplant Special Warfare Combatant Crewman: Steve Latham Primary Care physician: Zuly Bruno [...] levels: No results found for: CYCLOSPORIN, CYCLOSPORIN2, [id number], CYCLORAND No components found for: CYCLOSPORINE, 2HR [...] hours. ADDITIONAL INFORMATION: None Specified [id number] [place] [address] - [address] [facility] [address] [facility] [address] [facility] [address] [facility] [facility] [address] [id number] [place] [address] [address] [facility] [address] [facility] [address] [facility] Jakob [address], [address] [facility] [address] ROS and SCREEN: Chest Pain: negative Cough: [...] ADDRESS WITH PHYSICIAN: documented in this encounter [facility] 01-16-2023 Instructions José Miguel Garnica RN - 01/16/2023 9:40 AM EST - Labs Every 2 months - Discuss night time urination with your PCP - Schedule Colonoscopy through PCP - Follow up in 1 year documented in this encounter [facility] 09-10-2022 History of Present illness Narrative UROLOGY [...] and no hydronephrosis. Some reflux up the [place] right ureter but good drainage of both transplant and [place] ureter to the bladder. Nephrostomy tube was [...] transplant, orthotopic (N/A, 04/12/2020); kidney transplant w/o [place] nephrectomy (N/A, 04/12/2020); and placement nephrostomy catheter [...] Negative for , diarrhea, constipation Genitourinary: See [place] Neurological: Negative for headaches. Lymph/Heme: Negative for [...] x 4, Normal strength. No edema. Skin: Hauser, warm, and dry. There are no rashes [...] and no hydronephrosis. Some reflux up the [place] right ureter but good drainage of both transplant and [place] ureter to the bladder. Nephrostomy tube was [...] MD 09/10/22 documented in this encounter [facility] 07-07-2022 History of Present illness Narrative [...] assisted off the table and escorted to secretary receptionist where they made a follow up. [...] to have transplant ureter with anastomosis to [place] right ureter. Nephrostogram without filling defects and no hydronephrosis. Some reflux up the [place] right ureter but good drainage of both transplant and [place] ureter to the bladder. Nephrostomy tube was removed without issue. Patient does have some sensation of incomplete bladder emptying and occasional sensation in his right flank. PVR today was 33cc. Will re-evaluate urinary symptoms at next appointment. --continue Flomax --RTC in one month flow flow/PVR/IPSS Patient to call with any additional questions or concerns. Ryan Yepez MD 07/07/22 documented in this encounter [facility] 06-27-2022 History of Present illness Narrative [...] transplant, orthotopic (N/A, 04/12/2020); kidney transplant w/o [place] nephrectomy (N/A, 04/12/2020); and placement nephrostomy catheter [...] Negative for , diarrhea, constipation Genitourinary: See [place] Neurological: Negative for headaches. Lymph/Heme: Negative for [...] x 4, Normal strength. No edema. Skin: Hauser, warm, and dry. There are no rashes [...] yo male with a DDRT to the [facility] in 2019. Nephrostomy tube placed 05/17 [...] bag if needed. documented in this encounter [facility] 06-27-2022 History and physical note Patient was evaluated in clinic as a nurse visit. Please refer to Rena Brewster's note. [facility] Work Phone: 06-27-2022 History and physical note Patient was evaluated in clinic as a nurse visit. Please refer to Rena Brewster's note. documented in this encounter [facility] 06-27-2022 History of Present illness Narrative TEACHING REGARDING TX NEPH COMPLETED-NEPH TUBE SITE DRY AND INTACT-CLEAR YELLOW URINE IN THE BAG-INSTRUCTED ABOUT FLUSHING, BAG CHANGING ETC. NUMEROUS QUESTIONS ASKED AND ANSWERED-VERBALIZED UNDERSTANDING documented in this encounter [facility] 06-18-2022 Note EXAMINATION: CT ABD/ PELVIS WO [...] mass or enlargement. KIDNEYS: Marked atrophy of [place] kidneys. Transplant right pelvic kidney with percutaneous [...] authenticated by: MÓNICA JIMENEZ Date: 2022-06-18 13:53 [facility] 06-12-2022 Instructions Anayeli Christianson RN - 06/12/2022 3:21 PM EDT Do not take apart/disrupt nephrostomy tube system. Call Interventional Radiology and/or on-call transplant nurse [phone] for instruction if need to flush (clot or decreased flow). Take cipro 500mg, one tablet, twice per day for 14 days documented in this encounter [facility] 06-12-2022 History of Present illness Narrative Images from the original note were not included. 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 Hazardous Waste Management Specialist: Anayeli Burt Date of Liver Transplant: 04/13/2020 (Kidney), 04/13/2020 (Liver) 2 year, 1 months post Liver/Kidney Transplant Primary Disease: Hypertensive Nephrosclerosis Transplant Special Warfare Combatant Crewman: Steve Latham Primary Care physician: Zuly Bruno [...] Non-obstructing kidney stone in renal graft at [facility]. Percutaneous Neph Tube placed Images from the original note were not included. Nursing Assessment In Clinic (see Clinic Prep Sheet for additional information) Patient is accompanied to clinic today by: self Did patient require a wheelchair or medical transport for appointment: no Did test deskman confirm current address and insurance information is [...] AND PHARMACY: None Specified [id number] [place] [address] - [address] [facility] [address] [address] [facility] [address] [facility] [address] [id number] [place] [address] [address] [facility] [address] [facility] [address] [facility] [address], [address] [facility] [address] ROS and SCREEN: Chest Pain: negative Cough: negative SOB: negative Abd Pain: negative Nausea: positive Vomiting: negative Diarrhea: negative Constipation: negative Dysuria: positive Edema: negative Tremors: negative Headaches: negative Wound issues: negative Pt has neph tube w clear yellow urine. States he had a small clot that he dislodged QUESTIONS OR CONCERNS TO ADDRESS WITH PHYSICIAN: I saw George Styles at the [facility] on 06/12/2022. Patient is a 52 y.o. 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 His [place] kidney disease was noted to be presumed [...] GUIDANCE 05/17/2022 Surgeon: Enzo Heart DO; Location: [facility] INTERVENTIONAL RADIOLOGY (VIR) LIVER TRANSPLANT, ORTHOTOPIC N/A 04/12/2020 Laterality: N/A; Surgeon: LU Palma; Location: [facility] SAME DAY SURGERY MAIN OR KIDNEY TRANSPLANT W/O [place] NEPHRECTOMY N/A 04/12/2020 Laterality: N/A; Surgeon: LU [...] you have any questions. Steve Latham MD hand mounter Division of Nephrology [facility] documented in this encounter [facility] 06-04-2022 Instructions TATI GROVE - 06/04/2022 11:04 AM EDT Thank you for joining us for your neph tube follow up. We recommend routine exchange every 8-10 weeks. Please reach out at [phone] when it is time to set your next routine exchange. Thank you IR clinic documented in this encounter [facility] 06-04-2022 History of Present illness Narrative Met [...] exchange. Verbalized understanding. documented in this encounter [facility] 05-20-2022 Note Formatting of this n ote [...] time of his discharge. Leon Cook RN [facility] 05-20-2022 Miscellaneous Notes Patient discharged. AVS printed [...] provide teaching before his discharge Leon RN #[id number] Leon Cook RN Afternoon assessment completed at [...] Discussed with [facility] re: possible urine culture performed at their [...] with questions. Evan Byrd MD Urology, PGY-2 #[id number] I certify that this patient requires inpatient [...] Kallie Lorenzana RN documented in this encounter [facility] 05-20-2022 Note Formatting of this n ote [...] discharge/transition of care. Outcome: Adequate for Discharge [facility] 05-20-2022 Note Formatting of this n ote might be different from the original. Paged Vera Dillard MD R10 Rm [phone] Jensen George Please let's have a clear order on how the nephrostomy site dressing need to be changed when the patient goes home so we provide teaching before his discharge Leon RN #[id number] Leon Cook RN [facility] 05-20-2022 History of Present illness Narrative Images from the original note were not included. [facility] Note: [facility] the following discharge prescription(s): Medication reconciliation was completed with comparison to discharge reconciliation report. The prescription(s) will be delivered to the patient's bedside on 05/20/22. Total cost is $0. Yanira Her RPh,PharmD Specialty ([place]) [phone] [place] [phone] [facility] [phone] David [phone] [place] [phone] Bedside Delivery ([facility]) [phone] Attending I saw George Styles at the [facility] on 05/19/2022. I saw and independently [...] Evan Bennett MD 650 mg at 05/18/22 2269 allopurinol (ZYLOPRIM) tablet 100 mg 100 mg [...] Daily Progress Note Patient: George Styles, 1970, [id number] Physician: Liam Julian MD, PGY-3, Pager #[phone], [id number] Subjective/Interval History: No acute events overnight. Passed [...] Saldana MD Division of Hospital Medicine Pager [phone] Attending I saw George Feliz Jensen at the [facility] on 05/18/2022. I saw and independently [...] QHS Evan Bennett MD 400 mg at 05/17/222038 [email or web address] [...] Daily Progress Note Patient: George Styles, 1970, [id number] Physician: Nishant Gamez MD, PGY2, Pager #[phone], [id number] Subjective/Interval History: Nephrostomy tube placed yesterday with [...] to have stablized for this to be safety representative. Daya Saldana MD (Peggy) Division of Hospital Medicine Pager [phone] Internal Medicine Daily Progress Note Patient: George Styles, 1970, [id number] Physician: Nishant Gamez MD, PGY2, Pager #[phone], [id number] Subjective/Interval History: Worsening creatinine this morning with [...] MD (Peggy) Division of Hospital Medicine Pager [phone] Attending I saw George Styles at the [facility] on 05/17/2022. I saw and independently [...] of chart and discussion with treatment team, Airborne Sensor Specialist has not identified needs at this time. [...] follow. Introduced self and role of the rv service technician to patient. Provided emotional and spiritual support and the patient responded by sharing their experience and discussed the following: - Spirituality/Presybeterian Affiliation: As a kid attended Muslim yarsani but not a strong identity now - Family support - pt's brothers live close by Sap Pp Consultant provided: - Supportive presence - Active listening - Validation of feelings/emotions Patient encouraged to request a rv service technician as needed. Chaplains are available in-house 24 hours a day and 7 days a week. For urgent matters in [facility], please page [phone]. If the request is not urgent, please enter a consult. Consults are responded to within 24 hours. Angie Singh Mdiv, [facility] Trans[facility] [place] [address] Sap Pp Consultant [facility] Sap Pp Consultant Kirk [phone] [email or web address] [email or web address] [facility] Pager [phone] 22/06 Pager ,[facility], and Brock 1500 22/06 David Pager [phone] 05/16/22 1129 Clinical Encounter Type Visited With Patient Visit Type Introduction Pastoral Time Spent 15 min Referral Other (See Comment) (Rounding) Spiritual Assessment Spiritual Observation Spirituality helpful;Identifies as (see comment) (Sikhism) Emotional Observation Coping well Hope Observation Hopeful and accepting Support Observation By Family Interventions Provided Active listening;Supportive presence Facilitated Verbalization of feelings;Sharing of life story;Identifying support system Explored Expectations Plate Preparer Education Plate Preparer Service Available Yes Educated Patient Outcomes Patient Outcomes Articulated purpose/meaning Plan of Care Continue Visiting PRN Internal Medicine Daily Progress Note Patient: George Styles, 1970, [id number] Physician: Nishant Gamez MD, PGY2, Pager #[phone], [email or web address] Subjective/Interval History: Overall feeling okay this morning. 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 [...] Supervision Transfer Assessment: Sit to Stand Transfer [place] Level: Sit->Stand: independent Skilled Intervention/Details: Sit->Stand: x1 from EOB Stand to Sit Transfer [place] Level: Stand->Sit: supervision Assistive Device: Stand->Sit: armed chair Skilled Rationale: Controlled descent for sitting, Verbal cues Gait/Functional Mobility: Gait Assessment [place] Level: Gait: supervision Assistive Device: Gait: gait belt Gait Distance (feet): 200 Gait Deviations Identified: decreased grace, decreased step length, decreased stride length Gait Skilled Rationale: verbal, upright posture Skilled Intervention/Details - Gait: Pt with steady gait without LOB or complaints of SOB. Stairs: Stairs Assessment [place] Level: Stair Negotiation: stand-by assist Assistive Device: Stair Negotiation: gait belt, left rail (ascending) Number of stairs: 9 Stairs Skilled Rationale: reciprocal pattern Outcome Score(s): CURRENT [facility] Basic Mobility Inpatient Short Form Turning over in bed: 4 - No Assistance Sitting/standing from chair: 4 - No Assistance Moving from lying on back to sittin - No Assistance Moving to and from bed to chair: 4 - No Assistance Walk in hospital room: 3 - A Little Assistance Climbing 3-5 steps with a railin - A Little Assistance CURRENT [facility] Mobility Raw Score: 22 CURRENT [facility] Mobility Functional Limitation/Modifier: 20.91% Currently Impaired in [...] reported no concerns with discharging home with gallagher support. 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 IADL History IADLs: independent Primary Language: Faroese Home Management Skills: independent Meal Prep Responsibility: [...] Assessment: Transfer Assessment: Sit to Stand Transfer [place] Level: Sit->Stand: independent Skilled Rationale: Cues for increased safety Skilled Intervention/Details: Sit->Stand: x1 EOB Stand to Sit Transfer [place] Level: Stand->Sit: supervision Assistive Device: Stand->Sit: gait belt, armed chair Skilled Rationale: Verbal cues, Controlled descent for sitting, Cues for increased safety Skilled Intervention/Details: Stand->Sit: cues for hand placement and controlled descent Functional Mobility: Functional Mobility [place] Level: Functional Mobility/Gait: stand-by assist Assistive Device: Functional Mobility/Gait: gait belt Functional Mobility Distance: Distance needed for limited community mobility Functional Mobility Deficits: Activity tolerance, Balance, Decreased step length, Generalized weakness Functional Mobility Skilled Rationale: Verbal cues, Facilitate postural control Skilled Intervention/Details - Functional Mobility/Gait: cues for upright posture Outcome Score(s): CURRENT [facility] Daily Activity Inpatient Short Form Putting on/Taking Off Lower Body Clothin - A Little Assistance Bathin - A Little Assistance Toiletin - A Little Assistance Putting on/Taking Off Upper Body Clothin - No Assistance Groomin - No Assistance Eatin - No Assistance CURRENT [facility] Activity Raw Score: 21 CURRENT [facility] Activity Functional Limitation/Modifier: 32.79% Currently Impaired in [...] 04/12/2020 Laterality: N/A; Surgeon: LU Palma; Location: [facility] SAME DAY SURGERY MAIN OR KIDNEY TRANSPLANT W/O [place] NEPHRECTOMY N/A 04/12/2020 Laterality: N/A; Surgeon: LU [...] by: Mel Norman OT, OTR/L License #: [id number] pager # [phone] 05/20/2022 Upon discontinuation of Acute Care Occupational Therapy Services or patient discharge from the hospital this note represents the current Occupational Therapy Discharge Summary. documented in this encounter [facility] 05-20-2022 Hospital course Narrative Discharge Summary [...] during his recent hospital stay at [facility]. As you may know, George Styles, [...] Saldana MD Division of Hospital Medicine p: [phone] f: [phone] CONSULTS DURING ADMISSION: IP CONSULT TO SURGERY - UROLOGY IP CONSULT TO NEPHROLOGY - TRANSPLANT (MEDICINE) IP CONSULT TO INTERVENTIONAL RADIOLOGY IP CONSULT TO PHYSICAL THERAPY IP CONSULT TO OCCUPATIONAL THERAPY IP CONSULT TO PHARMACY BEDSIDE DISCHARGE MED DELIVERY IMAGING / PROCEDURES / RESULTS: Should you require further information or copies of results or reports please contact Medical Information Management @ [phone] LABS AT TIME OF DISCHARGE: Lab Results [...] Bruno [address] / [place] [address] MEDICATIONS: Discharge Orders CT ABDOMEN/PELVIS WITHOUT CONTRAST [...] CAPS Generic drug: docusate Follow-up: Zuly Bruno, MOTORBOAT MECHANIC HELPER [address] [facility] [address] Schedule an appointment as soon as possible for a visit Follow-up appointment with your, primary care physician within 7-10 days, after discharge. [address] [facility] [phone] Follow up The department of urology will call you with a follow up appointment. LU Ovalle [address] 11[address] Floor [facility] [address] Follow up Please make a follow up appointment with Dr. Latham's office. Upcoming Appointments (up to five)-Some appointments for Medical Center outpatient clinics or diagnostic testing locations are not displayed below Provider Department Dept Phone 06/04/2022 10:40 AM IR CLINIC [facility] Interventional Radiology Clinic [phone] 06/27/2022 1:30 PM [facility] Department of Radiology Arrive at: Arrive to First Floor Registration Desk [phone] 06/27/2022 2:40 PM Ryan Yepez [facility] Arrive at: Arrive to 2nd Floor, Registration [id number] 10/31/2022 1:00 PM Steve Latham [facility] [phone] 01/16/2023 9:40 AM TRANSPLANT HEPATOLOGY , [facility] Transplant [facility] [phone] Associated attestation - Daya Saldana MD - [...] MD (Peggy) Division of Hospital Medicine Pager [phone] documented in this encounter [facility] 05-20-2022 Hospital Discharge instructions Giulia Cavazos [...] be changed by Interventional Radiology. Please call [phone] to schedule this appointment and with any questions or concerns you may have regarding the nephrostomy tube. If you have questions or concerns, please call Interventional Radiology at SOMEONE FROM INTERVENTIONAL RADIOLOGY WILL CALL YOU FOR A FOLLOW UP IN THE IR CLINIC Giulia Cavazos RN Nurse Coordinator Interventional Radiology Interventional Radiology Outpatient scheduling documented in this encounter [facility] 05-19-2022 Note Formatting of this n ote [...] Ongoing Goal: Interdisciplinary Rounds/Family Conf Outcome: Ongoing [facility] 05-19-2022 Note Formatting of this n ote might be different from the original. Discussed with [facility] re: possible urine culture performed at their facility. However, based on urinalysis completed at that time, which was only notable for hematuria, culture was not performed and sample no longer feasible for culture. Liam Julian MD Internal Medicine/Pediatrics, PGY-3 [facility] 05-18-2022 Note Formatting of this n ote might be different from the original. 2002: IHIS message sent to Dr Justyn Wen, regarding patient passing a small kidney stone, about the size of pea. MD notified. Stone left in strainer in pt bathroom. 0500: IHIS message sent to Dr Justyn Wne, regarding pt BP 174/77. [facility] 05-18-2022 Note Formatting of this n ote [...] outcomes by discharge/transition of care. Outcome: Ongoing [facility] 05-18-2022 Note Formatting of this n ote [...] becomes hyponatremic, NS should instead be used. [facility] Work Phone: 05-18-2022 Note Formatting of this n ote might be different from the original. IHIS chat sent to Dr Tray Quintana, regarding pt BP 190/86. Pt complaining of pain at site of neph tube. PRN pain medication given per order parameters. Pt denies any other symptoms at this time. MD notified and aware. [facility] 05-17-2022 Note Formatting of this n ote might be different from the original. At 0900, I rounded with Dr. Gamez and Dr. Saldana. At that time I checked Mr. Styles's vital signs. His pulse oximeter was low and he was tachypneic. Verbal order at bedside to put nasal cannula on starting at 2liters oxygen and to provide incentive spirometer. [facility] 05-17-2022 Note Formatting of this n ote might be different from the original. Interventional Radiology procedure completed with IR Attending Dr. Heart / Dr. Le of percutaneous right nephrostomy tube placement transplant kidney 10.2 Fr Griffin acosta Pt tolerated procedure with moderate sedation local numbing agent . Transported to inpatient after phase I recovery. Post procedure orders in place. [facility] 05-16-2022 Note Formatting of this n ote might be different from the original. At 1530, I text chavad Kaitlynn Gomez MD that patient has only had 25ml urine output in myers this afternoon. [facility] 05-16-2022 Note Formatting of this n [...] with questions. Evan Byrd MD Urology, PGY-2 #[id number] [facility] Work Phone: 05-16-2022 Note Formatting of this n ote might be different from the original. I certify that this patient requires inpatient services at this time. I anticipate the expected length of stay will include at least two midnights. Inpatient services are due to the following medical concerns Obstructive kidney stone. Plans for post hospitalization care will be discharge to home. [facility] 05-16-2022 Consult note Associated Order (s): IP CONSULT TO NEPHROLOGY - TRANSPLANT (MEDICINE) I saw George Styles at the [facility] on 05/16/2022. Reason for Consultation: kidney [...] he was given flomax and sent home. Brenton better but noticed more pain and decreased [...] best assessment and recommendations. Maxi Pringle MD [facility] Work Phone: 05-16-2022 Consult note Associated Order (s): IP CONSULT TO NEPHROLOGY - TRANSPLANT (MEDICINE) I saw George Styles at the [facility] on 05/16/2022. Reason for Consultation: kidney [...] he was given flomax and sent home. Brenton better but noticed more pain and decreased [...] states he went to his local ED [place] and he was put on Flomax and he did improve. Pt states last night he was unable to void with severe right sided abd pain. Pt states nausea and no vomiting or fevers. Pt states he went back to [place] ED at 0100 and they placed a [...] orthotopic (N/A, 04/12/2020); and kidney transplant w/o mekory[place] nephrectomy (N/A, 04/12/2020). 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 The [place] kidneys are progressively atrophic bilaterally compared to [...] of 06/14/2020 are no longer present. The [place] distal right ureter is decompressed beyond this [...] with surgical history for renal graft and [place] right urinary drainage, as a discrete ureteroneocystostomy is not identified, and the graft may be draining via a ureteroureterostomy. Urology consultation recommended. 3. The mek[place] kidneys are bilaterally atrophic, with right renal sinus calcifications consistent with nonobstructing right [place] renal calculi up to 6 mm. Normal [...] PGY-3, Department of Urologic Surgery Pager #: [phone] Associated attestation - Ryan Yepez MD - [...] continue flomax documented in this encounter [facility] 05-16-2022 Note Formatting of this n [...] supported Trust Relationship/Rapport: care explained choices provided [facility] 05-16-2022 Note Formatting of this n ote might be different from the original. On admission to 0, a dual RN initial assessment of skin condition was performed by Kallie Lorenzana RN and Sheri Arguelles RN. Skin Assessment: WDL Jose Score: 20 LDA Added:N Kallie Lorenzana RN [facility] 05-15-2022 Emergency department Note Report given to Kallie RN at [facility] 05-15-2022 Emergency department Note Report given to Kallie RN at [facility] Bladder scan with Dr Villatoro at [...] diagnosed Thursday [facility]. [facility] to [facility] [...] DAY SURGERY MAIN OR KIDNEY TRANSPLANT W/O [place] NEPHRECTOMY N/A 04/12/2020 Laterality: N/A; Surgeon: LU Palma; Location: [facility] SAME DAY SURGERY MAIN OR OTHER [...] arrives from [facility] with kidney stones. Pt states he had right lower abd pain and right flank pain with blood in his urine since Thursday. Pt states he went to his local ED [place] and he was put on Flomax and he did improve. Pt states last night he was unable to void with severe right sided abd pain. Pt states nausea and no vomiting or fevers. Pt states he went back to [place] ED at 0100 and they placed a myers and CT scan completed and multiple kidney stones noted. [facility] as he had liver and kidney transplant in 03/2020. documented in this encounter [facility] 05-15-2022 History and physical note Internal Medicine Admission History & Physical Patient: George Styles, 1970, [id number] Physician: Evan Bennett MD, PGY1, Pager #[phone], GM 4 service Date of face to [...] DAY SURGERY MAIN OR KIDNEY TRANSPLANT W/O [place] NEPHRECTOMY N/A 04/12/2020 Laterality: N/A; Surgeon: LU Palma; Location: [facility] SAME DAY SURGERY MAIN OR OTHER [...] erythema: Skin: No jaundice or rash Neuro: manager stylist 3-7, 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 Strength grossly [...] dilation of the calyces may represent narrowing/partial [id number] ofthe ureter and mild hydronephrosis or sequela [...] Fred Prince MD Division of Hospital Medicine [phone] [facility] Work Phone: 05-15-2022 History and physical note Internal Medicine Admission History & Physical Patient: George Styles, 1970, [id number] Physician: Evan Bennett MD, PGY1, Pager #[phone], 4 service Date of face to face [...] DAY SURGERY MAIN OR KIDNEY TRANSPLANT W/O [place] NEPHRECTOMY N/A 04/12/2020 Laterality: N/A; Surgeon: LU [...] erythema: Skin: No jaundice or rash Neuro: manager stylist 3-7, 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 Strength grossly [...] dilation of the calyces may represent narrowing/partial [id number] ofthe ureter and mild hydronephrosis or sequela [...] Medicine [id number] documented in this encounter [facility] 05-15-2022 Emergency department Note Bladder scan with Dr Villatoro at bedside, 14ml noted [facility] 05-15-2022 Consult note Associated Order (s): [...] states he went to his local ED [place] and he was put on Flomax and he did improve. Pt states last night he was unable to void with severe right sided abd pain. Pt states nausea and no vomiting or fevers. Pt states he went back to [place] ED at 0100 and they placed a [...] orthotopic (N/A, 04/12/2020); and kidney transplant w/o mekoryuk nephrectomy (N/A, 04/12/2020). 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 The [place] kidneys are progressively atrophic bilaterally compared to [...] of 06/14/2020 are no longer present. The [place] distal right ureter is decompressed beyond this [...] with surgical history for renal graft and [place] right urinary drainage, as a discrete ureteroneocystostomy is not identified, and the graft may be draining via a ureteroureterostomy. Urology consultation recommended. 3. The [place] kidneys are bilaterally atrophic, with right renal sinus calcifications consistent with nonobstructing right [place] renal calculi up to 6 mm. Normal [...] PGY-3, Department of Urologic Surgery Pager #: [phone] Associated attestation - Ryan Yepez MD - [...] before surgical intervention --may continue flomax [facility] Work Phone: 05-15-2022 Emergency department Note Advised Dr Schneider concerning no urine output via myers catheter. [facility] 05-15-2022 Physician Emergency department Note ED [...] plan of care. Gian Villatoro MD 05/15/222003 [facility] Work Phone: 05-15-[address] Schneider made aware of only 30 ml urine via myers since arrival to room. [facility] 05-15-2022 Physician Emergency department Note dEPARTMENT of [...] DAY SURGERY MAIN OR KIDNEY TRANSPLANT W/O [place] NEPHRECTOMY N/A 04/12/2020 Laterality: N/A; Surgeon: LU [...] incorrections. Matt Schneider MD Resident 05/15/222030 [facility] Work Phone: 05-15-2022 Emergency department Note Pt arrives from [facility] with kidney stones. Pt states he had right lower abd pain and right flank pain with blood in his urine since Thursday. Pt states he went to his local ED [place] and he was put on Flomax and he did improve. Pt states last night he was unable to void with severe right sided abd pain. Pt states nausea and no vomiting or fevers. Pt states he went back to [place] ED at 0100 and they placed a myers and CT scan completed and multiple kidney stones noted. [facility] as he had liver and kidney transplant in 03/2020. [facility] 03-14-2022 History of Present illness Narrative [facility]: Call Information: Date and Time of Contact: 03/14/2022 5:01 PM Method of Contact: By Phone Contact Type: Prescriptions Contactor: [facility] Contactee: Patient Shipping/Pickup: Medicare B Refill?: No Medication Name: Mycophenolate sodium 180 mg and tacrolimus 0.5 mg Delivery Method: Air Delivery Location: Home Signature Required: No Mailing/Pickup Date: 03/17/2022 Shipping Address: [address] [place] [address] [address] Contact Info: Specialty ([place]) [phone] [facility] [phone] [facility] [phone] David [phone] Bedside Delivery ([facility]) [phone] documented in this encounter [facility] 06-14-2021 History of Present illness Narrative [facility] [...] Goal Progress: Satisfactory Contact Info: Specialty ([place]) [phone] Jakob [phone] [facility] [phone] [facility] [phone] Bedside Delivery ([facility]) [phone] [facility]: Call Information: Date [...] Location: Home Signature Required: Yes Shipping Address: [address] [place] [address] Contact Info: Specialty ([place]) [phone] [facility] [phone] [facility] [phone] [facility] [phone] Bedside Delivery ([facility]) [phone] [facility] note Diagnosis FAYE (acute kidney injury)- Primary Acute kidney failure, unspecified Hydronephrosis due to obstruction of ureteral orifice Hydronephrosis due to obstruction of ureteral orifice FAYE (acute kidney injury) Acute kidney failure, unspecified [facility] Diagnosis Follow-up exam- Primary Unspecified follow-up examination [facility] Diagnosis Immunosuppressed status- Primary Unspecified disorder of immune mechanism Kidney replaced by transplant Liver replaced by transplant Abnormal blood chemistry Other abnormal blood chemistry High risk medication use Encounter for long-term (current) use of other medications Aftercare following organ transplant Liver transplant recipient [facility] Diagnosis Attention to nephrostomy- Primary [facility] Diagnosis Other hydronephrosis- Primary [facility] Diagnosis FAYE (acute kidney injury) Acute kidney failure, unspecified [facility] Diagnosis Other hydronephrosis- Primary -donor kidney transplant recipient Kidney replaced by transplant [facility] Diagnosis Other hydronephrosis [facility] Diagnosis 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) Encounter for screening for malignant neoplasm of prostate Special screening for malignant neoplasm of prostate [facility] Diagnosis Abnormal blood chemistry- Primary Other abnormal blood chemistry Liver transplant recipient Kidney replaced by transplant Immunosuppressed status Unspecified disorder of immune mechanism Aftercare following organ transplant [facility] Diagnosis Kidney replaced by transplant- Primary [facility] Diagnosis Immunosuppressed status- Primary Unspecified disorder of immune mechanism Kidney replaced by transplant Aftercare following organ transplant High risk medication use Encounter for long-term (current) use of other medications Other general symptoms and signs Abnormal blood chemistry Other abnormal blood chemistry Hypertension secondary to other renal disorders [facility] Diagnosis Histoplasmosis- Primary Histoplasmosis, unspecified [...] Fever, unspecified [facility] Consultation (Routine) - New Request Specialty Diagnoses / Procedures Referred By Deni edwards Referred To Contact Interventional Radiology Diagnoses Hydronephrosis due to obstruction of ureteral orifice Daya Saldana MD [address] [place] [address] Referral ID Status Reason Start Date Expiration Date V isits Requested Visits Authorized [id number] New Request 05/18/2022 06/12/2023 1 1 * Radiology (Emergency) - New Request Specialty Diagnoses / Procedures Referred By Deni edwards Referred To Contact Procedures US RENAL TRANSPLANT SCAN Daya Saldana MD [address] [place] [address] Referral ID Status Reason Start Date Expiration Date V isits Requested Visits Authorized [id number] New Request 05/16/2022 06/10/2023 1 1 * Consultation (Routine) - New Request Specialty Diagnoses / Procedures Referred By Deni edwards Referred To Contact Urology Diagnoses FAYE (acute kidney injury) Ryan Yepez MD [address] [facility] [address] [place] [address] Referral ID Status Reason Start Date Expiration Date V isits Requested Visits Authorized [id number] New Request 05/16/2022 06/10/2023 1 1 * MRI/CAT Scan (Routine) - New Request Specialty Diagnoses / Procedures Referred By Contac t Referred To Contact Diagnoses FAYE (acute kidney injury) Procedures CT ABDOMEN/PELVIS WITHOUT CONTRAST CHG CT SCAN,ABDOMENT AND PELVIS,W/O CONTRAST Ryan Yepez MD [address] [place] [address] Referral ID Status Reason Start Date Expiration Date V isits Requested Visits Authorized [id number] New Request 05/16/2022 06/10/2023 1 1 * (Routine) - Pending Review Specialty Diagnoses / Procedures Referred By Contac t Referred To Contact Procedures PLATELET MONITORING PER PROTOCOL Daya Saldana MD [address] [place] [address] Referral ID Status Reason Start Date Expiration Date V isits Requested Visits Authorized [id number] Pending Review 05/15/2022 06/09/2023 1 1 * (Routine) - Pending Review Specialty Diagnoses / Procedures Referred By Contac t Referred To Contact Procedures DVT/VTE RISK ASSESSMENT Daya Saldana MD [address] [place] [address] Referral ID Status Reason Start Date Expiration Date V isits Requested Visits Authorized [id number] Pending Review 05/15/2022 06/09/2023 1 1 * (Routine) Specialty Diagnoses / Procedures Referred By Contac t Referred To Contact Evan Bennett MD [address] [place] [address] Referral ID Status Reason Start Date Expiration Date Visits Re quested Visits Authorized * (Routine) Specialty Diagnoses / Procedures Referred By Contac t Referred To Contact Evan Bennett MD [address] [place] [address] Referral ID Status Reason Start Date Expiration Date Visits Re quested Visits Authorized [facility] for referral (narrative)* Consultation (Routine) - New Request Specialty Diagnoses / Procedures Referred By Contac t Referred To Contact Sleep Medicine Diagnoses Hypoxia Kevin Sage MD [address] [place] [phone] Referral ID Status Reason Start Date Expiration Date V isits Requested Visits Authorized [id number] New Request 09/10/2023 10/04/2024 1 1 * MRI/CAT Scan (Routine) - New Request Specialty Diagnoses / Procedures Referred By Contac t Referred To Contact Diagnoses Histoplasmosis Procedures CT CHEST WITHOUT CONTRAST CHG DIAGNOSTIC COMPUTED TOMOGRAPHY THORAX W/O CNTRST Kevin Sage MD [address] [place] [address] Referral ID Status Reason Start Date Expiration Date V isits Requested Visits Authorized [id number] New Request 09/10/2023 10/04/2024 1 1 * Radiology (Routine) - New Request Specialty Diagnoses / Procedures Referred By Deni t Referred To Contact Procedures US RENAL TRANSPLANT SCAN Steve Latham MBBS [address] [place] [address] Referral ID Status Reason Start Date Expiration Date V isits Requested Visits Authorized [id number] New Request 08/29/2023 09/22/2024 1 1 * (Routine) - New Request Specialty Diagnoses / Procedures Referred By Contac t Referred To Contact Procedures PLATELET MONITORING PER PROTOCOL Steve Latham MBBS [address] [place] [phone] Referral ID Status Reason Start Date Expiration Date V isits Requested Visits Authorized [id number] New Request 08/28/2023 09/21/2024 1 1 * (Routine) - New Request Specialty Diagnoses / Procedures Referred By Contac t Referred To Contact Procedures DVT/VTE RISK ASSESSMENT Steve Latham MBBS [address] [place] [phone] Referral ID Status Reason Start Date Expiration Date V isits Requested Visits Authorized [id number] New Request 08/28/2023 09/21/2024 1 1 [facility] Instructions * Patient Instructions - Christin Elizabeth APRN-MOTORBOAT MECHANIC HELPER - 10/19/2018 9:21 AM EST You should take an extra dose of the lactulose as needed so that you are having 3-4 bowel movementsdaily. You should start the chemical dependency counseling as soon as possible. If you have questions, call the transplant psychotherapist social worker Melania Pierson. in this encounter* Patient Instructions - Sophie Cary RN - 10/12/2018 11:09 AM EST You have been seen in the pre-transplant evaluation clinic by Dr. Restrepo and Sophie Cary. Sophie Cary is your pre-distance learning coordinator she can be reached at [phone] at any time for questions during the pre-transplant process. Your evaluation is complete pendin. Abdominal ultrasound. 2. 6 minute walk test. 3. Cardiology evaluation. Additionally, your forestry supervisor will recommend testing to screen for coronary artery disease. This will be scheduled for you after your cardiology visit. 4. Your coordinator will be requesting record from your last dental visit, colonoscopy and EGD. 5. Please work to complete social work recommendations. Your psychotherapist social worker will be contacting you to follow up on your progress. 6. You have also been referred for a kidney transplant. An appointment will be scheduled for you sari evaluated in the kidney transplant clinic after you have satisfied requirements dictated by [employer]. Once your testing is complete, we [...] ___ Other Name MRN * Christin Elizabeth, AVIATION TECHNICIAN AIRCRAFT-MOTORBOAT MECHANIC HELPER - 10/19/2018 9:00 AM EST Formatting of this note may be different from the original. History of Present Illness: Chief Complaint Patient presents with Follow-up Cirrhosis George Styles is a 48 y.o. male who presents to the [facility] today regarding his diagnosis/chief complaint(s) of Cirrhosis secondary to ETOH, with ESRD follows with Dr. Orr. Currently undergoing evaluation for liver/kidney transplant. Has been seen in transplant clinic for eval. Still undergoing pre testing. Diagnosed in April 2018. Last drink was immediately prior to hospital admission in [place] for ACLF. Hospital course notable for ARF [...] (human immunodeficiency virus infection); Hyperlipidemia; Hyperthyroidism; Hypothyroidism; OR (myocardial infarction); Migraine; DARLENE (obstructive sleep apnea); [...] kidney transplant evaluation. Pt was AOx3. Transplant Vascular Technician role/function was explained and reviewed. The patient was informed that the results of this assessment will be shared with the referring provider and the transplant team. The patient verbalized understanding of this information. The [facility] psychosocial assessment consent form has been explained to patient and has been signed. Pt is completing this evaluation with brother (David) in the Outpatient setting. NANCYK educated pt on the benefits of completing/filing advanced directives and resources were offered. Pt identifies with [place] yarsanism. Pt confirms being a [place] Citizen. Pt.'s primary language is Faroese. Pt confirms the ability to read,write, and understand Faroese. Pt denies potential donors. Donor cards and [...] has valid license, does not regularly drive ([facility] recommends that he not to drive). [...] related disease etoh cirrohosis April dx in [facility] for thirty days. Pt reports learning that [...] as well as referred him to pre distance learning coordinator. Pt and support demonstrated moderate understanding of [...] Patient's brother David is a self employed court reporter. Additional support includes his other brother Tyshawn and his Mary live fifteen minutes away. Of note Mary is a machine hand for a [employer] is available to assist retail department reset. He confirms being comfortable asking for help. [...] in 2010, he was employed by the [employer]. He has access to SSDI payment (SSDI starts in November) in regards to financial means pre/ post-transplant. Pt confirms (meeting bills currently, ) being able to meet daily needs. Patient's brother asking for additional information on community resources, food stamps and Heap. Refer him to pt.'s dialysis center and the [facility]. Hereports access to Medicaid. Pt. [...] court ordered treatment after a DUI charge [facility] in [place], court ordered treatment in 2001 and in [...] by patient from his primary medical provider- MOTORBOAT MECHANIC HELPER patient was noted as attending an alcohol [...] He was provided with local AOD resources, [facility] AOD informational packet. Pt was referred for [...] new visit Date of service: 10/12/2018 -Referring independent living advisor for today's consult: -Primary Care Provider: Zuly Bruno CC: Chief Complaint Patient presents with Liver Recipient Evaluation History of Present Illness George Styles is a 48 y.o. male who presents to the [facility] liver transplant surgery clinic today for evaluation [...] cm LVOT area 4.52 cm2 LVOT peak melitno 1.34 m/s LVOT peak VTI 28.9 cm [...] processes progressing rapidly Unknown * Elisa Tiwari, SOFTWARE TEST ENGINEER - 10/12/2018 10:00 AM EST Timed up and go 9.9 seconds Senior Software Qa Engineer Left 52.8 pounds Right 44.9 pounds Waist circ 38.5 inches * Sophie Cary, SAMI - 10/12/2018 10:00 AM EST Formatting of this note may be different from the original. Patient George Styles ([id number]), accompanied by his brother, was seen on [...] any further questions. Sophie DON, RN Liver Hazardous Waste Management Specialist Etiology: ETOH HCC: No ETOH: Yes Last [...] Yovani Orr MD [address] [address] Status Reason Specialty Diagnoses / Procedures Referred By Contact Referred To Contact New Request Diagnoses Cirrhosis of liver with ascites, unspecified hepatic cirrhosis type Procedures US ABDOMEN RUQ/LIVER/GB Yovani Orr MD [address] [address] Specialty Diagnoses / Procedures Referred By Contac t Referred To Contact Diagnoses FAYE (acute kidney injury) Procedures CT ABDOMEN/PELVIS WITHOUT CONTRAST CHG CT SCAN,ABDOMENT AND PELVIS,W/O CONTRAST Central Scheduling [address] [place] [phone] Referral ID Status Reason Start Date Expiration Date V isits Requested Visits Authorized [id number] Pending Review 05/16/2022 06/10/2023 1 1 Specialty Diagnoses / Procedures Referred By Contac t Referred To Contact Diagnoses Other hydronephrosis Procedures [facility] Ryan Yepez MD [address] [facility] [address] [place] [address] Referral ID Status Reason Start Date Expiration Date V isits Requested Visits Authorized [id number] New Request 07/07/2022 08/01/2023 1 1 Specialty Diagnoses / Procedures Referred By Contac t Referred To Contact Procedures DIRECT ADMIT REQUEST Steve Latham MBBS [address] [place] [address] Referral ID Status Reason Start Date Expiration Date V isits Requested Visits Authorized [id number] New Request 08/28/2023 09/21/2024 1 1 Advance Directives No Advanced Directives Records FoundDocuments on File Type Date Recorded Patient Fire And Safety Helper Expl anation Advance Directives and Living Will Power of Anchorer Latest Code Status on File Code Status [...] Yovani Orr MD [address] [address] Status Reason Specialty Diagnoses / Procedures Referre d By Contact Referred To Contact Denied Diagnoses Alcoholic cirrhosis, unspecified whether ascites present Pre-transplant evaluation for liver transplant Procedures MRI ABDOMEN WITH CONTRAST NM MRI, ABDOMEN W/CONTRAST Yovani Orr MD [address] [address] Reason Comments Liver Recipient Evaluation Status Reason Specialty Diagnoses / Procedures Referred By Contact Referred To Contact New Request Transplant / Transplant Surgery Procedures PRE NEW PATIENT Yovani Orr MD [address] [address] Alfredito Restrepo MD [address] [place] [address] Reason Comments Reschedule Reason Comments Outside Medical Records Request Reason Comments Social Work Follow-up Reason Comments Kidney Stone Specialty Diagnoses / Procedures Referred By Contac t Referred To Contact Diagnoses Obstructing kidney stone, s/p kidney transplant 2019 Daya Saldana MD [address] [place] [address] [facility] [address] [place] [address] Referral ID Status Reason Start Date Expiration Date Visits Re quested Visits Authorized [id number] 1 1 Reason Comments Follow-up Reason Comments Kidney Recipient Follow-up Liver Recipient Follow-up Reason Comments Consult Reason Comments New Patient Hospital follow up Specialty Diagnoses / Procedures Referred By Contac t Referred To Contact Urology Diagnoses hosp fu with [address] prior Procedures NEW TO DOC/RET PATIENT Zuly Bruno CNP [address] [place] [address] Ryan Yepez MD [address] [facility] [address] [place] [address] Referral ID Status Reason Start Date Expiration Date Visits Re quested Visits Authorized [id number] Closed 06/27/2022 07/22/2023 1 1 Specialty Diagnoses / Procedures Referred By Contac t Referred To Contact Diagnoses FAYE (acute kidney injury) Procedures CT ABDOMEN/PELVIS WITHOUT CONTRAST CHG CT SCAN,ABDOMENT AND PELVIS,W/O CONTRAST Central Scheduling [address] [place] [phone] Referral ID Status Reason Start Date Expiration Date V isits Requested Visits Authorized [id number] Pending Review 05/16/2022 06/10/2023 1 1 Reason Comments Follow-up Specialty Diagnoses / Procedures Referred By Contac t Referred To Contact Urology Diagnoses 1 week fu post NT clamp Procedures RETURN PATIENT Zuly Bruno CNP [address] [place] [address] Ryan Yepez MD [address] [facility] [address] [place] [address] Referral ID Status Reason Start Date Expiration Date Visits Requested Visits Authorized [id number] Authorized - 07/07/2022 08/01/2023 2 2 Specialty Diagnoses / Procedures Referred By Deni edwards Referred To Contact Diagnoses Other hydronephrosis Procedures [facility] Ryan Yepez MD [address] [facility] [address] [place] [address] Referral ID Status Reason Start Date Expiration Date V isits Requested Visits Authorized [id number] New Request 07/07/2022 08/01/2023 1 1 Specialty Diagnoses / Procedures Referred By Deni edwards Referred To Contact Urology Diagnoses 1 week fu post NT clamp Procedures RETURN PATIENT Zuly Bruno, [employer] [address] [place] [address] Ryan Yepez MD [address] [facility] [address] [place] [address] Referral ID Status Reason Start Date Expiration Date Visits Re quested Visits Authorized [id number] Closed 07/07/2022 08/01/2023 2 2 Reason Comments Liver Recipient Follow-up Reason Comments Kidney Recipient Follow-up Reason Comments Kidney Recipient Follow-up Specialty Diagnoses / Procedures Referred By Deni edwards Referred To Contact Diagnoses Kidney replaced by transplant Steve Latham MBBS [address] [place] [address] [facility] [address] [place] [address] Referral ID Status Reason Start Date Expiration Date Visits Re quested Visits Authorized [id number] 1 1 (unrecognized sect ion and content) No Status Records FoundNo Status Records FoundNo Status Records FoundNo Status Records FoundNo Status Records FoundNo Status Records Found INFORMATION SOURCE (unrecogn ized section and content) DATE CREATED AUTHOR 01/07/2020 Karlie ariza DATE CREATED AUTHOR AUTHOR'S ORGANIZ ATION 01/27/2021 [facility] DATE CREATED AUTHOR AUTHOR'S ORGANIZ ATION 04/13/2023 [facility] DATE CREATED AUTHOR AUTHOR'S ORGANIZ ATION 05/11/2023 [facility] DATE CREATED AUTHOR AUTHOR'S ORGANIZ ATION 10/26/2023 [facility] DATE CREATED AUTHOR AUTHOR'S ORGANIZ ATION 11/05/2023 [facility] [employer] Care Teams (unrecognized sec tion and content) Diamond Saw Operator Relationship Specialty Start Date End Date Zuly Bruno CNP PCP - General 07/19/18 Comfort Rivera, [facility] [address] [facility] [address] [place] [address] Pharmacist Pharmacist 05/16/20 Angel Carpio [facility],PharmD Pharmacist Pharmacist 05/16/20 Te Leigh [facility],PharmD Pharmacist Pharmacist 01/09/21 Diamond Saw Operator Relationship Specialty Start Date End Date Zuly Bruno CNP PCP - General 07/19/18 Comfort Rivera, [facility] [address] [facility] [address] [place] [address] Pharmacist Pharmacist 05/16/20 Angel Carpio [facility],PharmD Pharmacist Pharmacist 05/16/20 Te Leigh [facility],PharmD Pharmacist Pharmacist 01/09/21 Diamond Saw Operator Relationship Specialty Start Date End Date Zuly Bruno CNP PCP - General 07/19/18 Diamond Saw Operator Relationship Specialty Start Date End Date Zuly Bruno CNP PCP - General 07/19/18 Diamond Saw Operator Relationship Specialty Start Date End Date Zuly Bruno CNP PCP - General 07/19/18 Diamond Saw Operator Relationship Specialty Start Date End Date Zuly Bruno CNP PCP - General 07/19/18 Diamond Saw Operator Relationship Specialty Start Date End Date Zuly Bruno CNP PCP - General 07/19/18 Diamond Saw Operator Relationship Specialty Start Date End Date Zuly Bruno CNP PCP - General 07/19/18 Diamond Saw Operator Relationship Specialty Start Date End Date Zuly Bruno CNP PCP - General 07/19/18 Diamond Saw Operator Relationship Specialty Start Date End Date Zuly Bruno CNP PCP - General 07/19/18 Diamond Saw Operator Relationship Specialty Start Date End Date Zuly Bruno CNP PCP - General 07/19/18 Diamond Saw Operator Relationship Specialty Start Date End Date Zuly Bruno CNP PCP - General 07/19/18 Diamond Saw Operator Relationship Specialty Start Date End Date Zuly Bruno CNP PCP - General 07/19/18 Diamond Saw Operator Relationship Specialty Start Date End Date uZly Bruno CNP PCP - General 07/19/18 Diamond Saw Operator Relationship Specialty Start Date End Date LexielydialatishaZuly tipton CNP PCP - General 07/19/18 Diamond Saw Operator Relationship Specialty Start Date End Date LexielydialatishaZuly tipton ROB PCP - General 07/19/18 Diamond Saw Operator Relationship Specialty Start Date End Date Zuly Bruno CNP PCP - General 07/19/18 Evan White DO [address] [place], [place] [id number] Infectious Disease Infectious Disease 09/09/23 Diamond Saw Operator Relationship Specialty Start Date End Date Zuly BrunoROB PCP - General 07/19/18 Evan White DO [address] [place], [place] [id number] Infectious Disease Infectious Disease 09/09/23 Diamond Saw Operator Relationship Specialty Start Date End Date Lexielydialatishaomer ZulyROB PCP - General 07/19/18 Evan White DO [address] [place], [place] [id number] Infectious Disease Infectious Disease 09/09/23 Scheduled Active [...] Intravenous, EVERY 6 HOURS NEEDED, Starting on Marat 05/15/22 at 2206, Until Thu05/20/22 at 2110, Nausea / Vomiting, 1st line for Nausea/Vomiting oxyCODONE (ROXICODONE) tablet 5 mg(Linked Group 2) 5 mg, Oral, EVERY 4 HOURS NEEDED, Starting on Thu05/16/22 at 0614, Until Thu05/20/22 at 0, Severe Pain, Moderate Pain 0338 (See Alternative - Provider: Carolyn Isaac RN)0806 (See Alternative - Provider: Mel Hampton, SAMI) 0825 (Given - Provider: Josey Braun, RN)2104 (Given - Provider: Carolyn Isaac, RN) [...] BE BASED ON THE PRIMARY CLINICAL RECORDS. [email or web address] provides no warranty or guarantee of the accuracy or completeness of information in this document.
[2023-11-27 07:25] LABS: Basophils Percent Auto 0.8 % (0.2-2.0); Eosinophils Absolute Auto 0.1 10^3/uL (0.0-0.7); Eosinophils Percent Auto 2.6 % (0.9-7.0); Hematocrit 43.8 % (42.0-54.0); Hemoglobin 13.9 g/dL (14.0-18.0); Lymphocytes Absolute Auto 1.4 10^3/uL (1.2-3.8); Lymphocytes Percent Auto 36.2 % (20.5-60.0); Mean Corpuscular HGB Conc 31.7 g/dL (29.9-35.2); Mean Corpuscular Hemoglobin 27.7 pg (25.9-34.0); Mean Corpuscular Volume 87.3 fL (80.0-94.0); Mean Platelet Volume 10.2 fL (9.5-13.5); Monocytes Absolute Auto 0.4 10^3/uL (0.3-0.8); Monocytes Percent Auto 11.1 % (1.7-12.0); Neutrophils Absolute Auto 1.9 10^3/uL (1.4-6.5); Neutrophils Percent Auto 49.3 % (43.0-75.0); Platelet Count 188 10^3/uL (150-450); Red Blood Count 5.02 10^6/uL (4.70-6.10); Red Cell Distribution Width 14.3 % (11.0-15.0); White Blood Count 3.8 10^3/uL (4.0-11.0)
[2023-11-27 08:18] LABS: Protein Creatinine Ratio Urine 0.18; Total Protein Urine Random 17.3 mg/dL (<=11.9)
[2023-11-27 10:31] LABS: Alanine Aminotransferase 38 U/L (16-63); Albumin Level 3.8 g/dL (3.4-5.0); Alkaline Phosphatase 91 U/L (46-116); Anion Gap 12.5; Aspartate Amino Transferase 24 U/L (15-37); BUN Creatinine Ratio 11.1; Bilirubin Direct 0.3 mg/dL (0.0-0.2); Calcium 9.5 mg/dL (8.5-10.1); Carbon Dioxide 26.5 mmol/L (21.0-32.0); Chloride 106 mmol/L (98-107); Estimated GFR (African America >60 (>=60); Estimated GFR (Non-African Ame >60 (>=60); Gamma Glutamyl Transpeptidase 19 U/L (15-85); Glucose 113 mg/dL (74-106); Magnesium 1.7 mg/dL (1.8-2.4); Phosphorus 4.7 mg/dL (2.6-4.7); Sodium 141 mmol/L (136-145)
[2023-12-02 07:09] LABS: Tacrolimus (FK506), Blood 6.1 ng/mL (2.0-20.0)
== END 2023-11-27 06:51 | disposition home or self-care (01) ==
PROVIDERS: PCP Nurse Practitioner
DX: R79.9 Abnormal finding of blood chemistry, unspecified (principal); Z94.0 Kidney transplant status; Z48.298 Encounter for aftercare following other organ transplant; D84.9 Immunodeficiency, unspecified; Z94.4 Liver transplant status; B39.9 Histoplasmosis, unspecified
CPT/HCPCS: 36415; 80048; 80189; 80197; 82042; 82247; 82248; 82570; 82977; 83735; 84075; 84100; 84156; 84450; 84460; 85025

== ENCOUNTER 2023-12-04 06:40 | Outpatient (OUT) | payer MEDICARE, MEDICAID, SELFPAY ==
--- OUTSIDE RECORDS SUMMARY | 2023-12-04 06:47 | XMS_ITS | CCD ---
Author Name Unknown Address [address] [place] [address] Organization [facility] Care Team Providers Care Telegraph Office Telephone Clerk Name Role Phone Kiana Zuly Unavailable Unavailable [...] Unavailable AICHHOLZ, ZULY Primary Care Unavailable Aichholz [facility], Zuly Primary Care Provider Miguel HComfort Unavailable [phone] Shirin RPh,PharmD, Angel Unavailable Unavailab makayla Leigh RP,PharmD, Te Unavailable Unavamatthew lable Aicholz [facility] Primary Care Provider MIGUEL CARDONA Attending Unavailable MISC, DR BURCH Admitting Unavailable MISC, DR BURCH Consulting Unavailable AICHHOLZ, [employer] ZULY Primary Care Unavailable MISC, DR BURCH Attending Unavailable MISC, DR BURCH Admitting Unavailable MISC, DR BURCH Consulting Unavailable AICHHOLZ, [employer] ZULY Primary Care Unavailable MISC, DR BURCH Attending Unavailable ARCELIA PIZARRO Consulting Unavailable KE BURNHAM Attending Unavailable KE BURNHAM Admitting Unavailable DR MÓNICA JIMENEZ Consulting Unavailable AICHHOLZ, [employer] ZULY Primary Care Unavailable KE BURNHAM Consulting Unavailable MISC, DR DOCTOR Consulting Unavailable MISC, DR DOCTOR Attending Unavailable AICHHOL, [facility] ZULY Primary Care Unavailable MISC, DR DOCTOR Admitting Unavailable MISC, DR DOCTOR Consulting Unavailable MISC, DR DOCTOR Attending Unavailable AICHHOL, [facility] ZULY Primary Care Unavailable MISC, DOCTOR Admitting Unavailable MISC, DR DOCTOR Consulting Unavailable AICHHOL, [facility] ZULY Primary Care Unavailable MISC, DOCTOR Admitting Unavailable MISC, DR DOCTOR Attending Unavailable MELINDA, DR GEORGE Munoz Consulting Unavailable MELINDA, DR GEORGE Munoz Attending Unavailable AICHHOLZ, [facility] ZULY Primary Care Unavailable MELINDA, DR GEORGE Munoz Admitting Unavailable NAUN ., KE Consulting Unavailable MIRANDA, LYNDSAY Consulting Unavailable MELINDA, DR GEORGE Munoz Consulting Unavailable NAUN ., KE Attending Unavailable NAUN ., KE Admitting Unavailable AICHHOLZ, [facility] ZULY Primary Care Unavailable NAUN ., KE Consulting Unavailable GIAN HERRING Consulting Unavailable AICHOL, [employer] ZULY Consulting Unavailable AICHOL, HAND [employer]OOK[employer] ZULY Attending Unavailable AICHOL, HAND BOOK[employer] ZULY Admitting Unavailable AICHHOL, [facility] ZULY Primary Care Unavailable MISC, DR Consulting Unavailable MISC, DR BURCH Admitting Unavailable MISC, DR DOCTOR Attending Unavailable AICHHOLZ, [facility] ZULY Primary Care Unavailable MISC, DR Consulting Unavailable MISC, DR DOCTOR Attending Unavailable MISC, DOCTOR Admitting Unavailable AICHHOLZ, [facility] ZULY Primary Care Unavailable MISC, DR BURCH Admitting Unavailable MISC, DR Consulting Unavailable MISC, DR DOCTOR Attending Unavailable AICHHOL, [facility] ZULY Primary Care Unavailable MISC, DR DOCTOR Admitting Unavailable MISC, DR DOCTOR Consulting Unavailable AICHOL, [facility] ZULY Primary Care Unavailable MISC, DR DOCTOR Attending Unavailable MISC, DOCTOR Admitting Unavailable MISC, DR DOCTOR Consulting Unavailable AICHHOL, [facility] ZULY Primary Care Unavailable MISC, DR DOCTOR Attending Unavailable AICHOL, HAND BOOKED [employer] ZULY Consulting Unavailable [facility], HAND BOOKED [facility] [employer] ZULY Attending [facility] ZULY Admitting Unavailable [facility] Primary Care Unavailable DR MÓNICA JIMENEZ Consulting Unavailable [facility] Primary Care Provider [phone] Cindy WHIPPLETranjuan j Feliz Unavailable [facility] Primary Care Provider Evan White DO Unavailable [...] Propensity to adverse reactions (disorder) 8 [facility] (20 sources) Shellfish-Derive d Products Propensity to adverse reactions to drug 9 [facility] (1 source) Shellfish Drug allergy (disorder) [facility] Medications Current Medications Medication Drug Class(es) [...] 1 capsule by mouth once daily b icqgfda-W-jqdzt acid (NEPHROCAPS) 1 MG capsule Take 1 [...] itraconazole Fax results to: Dr. White - [phone] Transplant Neph - [phone] Each 0 09/10/2023 Active Drug or [...] ankle pain. 0 06/12/2020 06/12/2023 Discontinued lactulose 03833 mg powder for oral solution (19 sources) [...] EVERY 12 HOURS NON-STANDARD, First dose on [facility] 05/15/22 at 2245, Until Discontinued Give [...] Start: 08-20-2022 take 1 capsule by [facility] every twelve hours Tacrolimus (PROGRAF) 0.5 MG [...] Start: 03-14-2022 take 1 capsule by [facility] every twelve hours tacrolimus (PROGRAF) 0.5 MG [...] Start: 05-23-2022 take 1 capsule by mo [facility] once daily Tamsulosin HCl 0.4 MG capsule [...] Start: 01-15-2023 take 2 tablets by [facility] once daily Allopurinol 100 MG tablet Indications: Abnormal blood chemistry Take 2 tablets by mouth daily. 180 tablet 3 01/15/2023 Active Start: 05-17-2022 End: 05-20-2022 allopurinol (ZYLOPRIM) table t 100 mg Start: 05-16-2022 End: 05-16-2022 take 200 mg by mouth once daily 200 mg, Oral, DAILY, F irst dose on Thu05/16/22 at 0900, Until Discontinued Start: 12-30-2021 take 2 tablets by [facility] once daily allopurinol 100 MG tablet Indications: Abnormal blood chemistry take 2 tablets by mouth once daily 180 tablet 3 12/30/2021 Active Start: 01-28-2021 take 2 tablets by [facility] once daily allopurinol 100 MG tablet Indications: [...] (ROXICODONE) tablet 10 mg polyethylene glycol 3350 02501 mg powder for oral solution (20 sources) [...] ( K-PHOS NEUTRAL) tablet 1,000 mg sennosides, fdc 8.6 mg oral tablet (1 source) Start: [...] Coronary arteriosclerosis; 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: [Atherosclerotic heart disease of [place] coronary artery without angina pectoris] Onset: 04-13-2023 [...] sources) Taking high risk medication; 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: [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] Episodic Other aftercare (3 sources) 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; 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: [OTH NURSING HOME 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 THERAPY] Onset: 07-06-2022 Episodic Other [...] 05-10-2020 05-10-2020 Episodic Other aftercare (1 source) 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 [address] CO2 [Moles/Vol] 20 mmol/L Low 21-31 [facility] Comment on above: Performed By: #### C HM7, MGO ####[facility] (DEFAULT)[address] [facility] [place] [address] Creatinine [Mass/Vol] 1.13 mg/dL Normal 0.70-1.30 [facility] Comment on above: Performed By: #### C HM7, MGO ####[facility] (DEFAULT)[address] [place] [address], [place] [address] GFR/1.73 sq M.predicted among non-blacks MDRD (S/P/Bld) [Vol rate/Area] 78 mL/min/{1.73_m2} Normal >=60 [facility] Comment on above: Result Comment: Repo rted eGFR is based on the CKD-EPI 2020 equation using creatinine, age, and sex. Performed By: #### C HM7, MGO ####[facility] (DEFAULT)[address] [place] [address] Glucose [Mass/Vol] 109 mg/dL High 70-99 [facility] Comment on above: Performed By: #### C HM7, MGO ####[facility] (DEFAULT)[address] [place] [address] Osmolality [Osmolality] 295 mosm/kg Normal 278-305 [facility] Comment on above: Performed By: #### C HM7, MGO ####[facility] (DEFAULT)[address] [place] [address] Potassium [Moles/Vol] 4.3 mmol/L Normal 3.5-5.0 [facility] Comment on above: Performed By: #### C HM7, MGO ####[facility] (DEFAULT)[address] [place] [address] Sodium [Moles/Vol] 140 mmol/L Normal 135-145 [facility] Comment on above: Performed By: #### Chinedu HM7, MGO ####[facility] (DEFAULT)[address] [place] [address] Urea nitrogen [Mass/Vol] 16 mg/dL Normal 7-25 [facility] Comment on above: Performed By: #### Chinedu HM7, MGO ####[facility] (DEFAULT)[address] [place] [address] Urea nitrogen/Creatinine [Mass ratio] 14 mg/mg Normal [facility] Comment on above: Performed By: #### Chinedu HM7, MGO ####[facility] (DEFAULT)[address] [place] [address] Anion gap [Moles/Vol] 13 mmol/L 7 - 17 mmol/L [facility] Chloride [Moles/Vol] 111 mmol/L High 98 - 10 8 mmol/L [facility] CO2 [Moles/Vol] 20 mmol/L Low 21 - 31 mmol/L [facility] Creatinine [Mass/Vol] 1.13 mg/dL 0.70 - 1.30 mg/dL [facility] eGFR, CKD-EPI, Male 78 - [facility] Glucose [Mass/Vol] 109 mg/dL High 70 - 99 mg/dL [facility] Interpretation and review of laboratory results Abnormal [facility] Osmolality Calc [Osmolality] 295 [facility] Potassium [Moles/Vol] 4.3 mmol/L 3.5 - 5.0 mmol/L [facility] Sodium [Moles/Vol] 140 mmol/L 135 - 145 mmol/L [facility] Urea nitrogen [Mass/Vol] 16 mg/dL 7 - 25 mg/dL [facility] Urea nitrogen/Creatinine [Mass ratio] 14 mg/mg [facility] GLUCOSE POCon 09-11-2023 Glucose [Mass/Vol] 108 mg/dL High 70 - 99 mg/dL [facility] Interpretation and review of laboratory results Abnormal [facility] POC Sample Type CAPBL [facility] Legionella sp identified Org specific cx Nom (Unsp spec)on 09-11-2023 Bacteria identified Cx Nom (Unsp spec) NO GROWTH DAY 7 OF 7 [facility] MAGNESIUMon 09-11-2023 Magnesium [Mass/Vol] 1.6 mg/dL Normal 1.6-2.6 [facility] Comment on above: Performed By: #### C 7, MGO ####[facility] (DEFAULT)[address] [place] [address] Interpretation and review of laboratory results Normal [facility] Magnesium [Mass/Vol] 1.6 mg/dL 1.6 - 2 .6 mg/dL [facility] No Panel Informationon 09-11 [facility] TACROLIMUS LEVEL, TROUGH (UT E DRUG LEVEL)on 09-11-2023 Interpretation and review of laboratory results Normal [facility] Tacrolimus (Bld) [Mass/Vol] 11.5 ng/mL [facility] Tacrolimus, Trough 11.5 ng/mL Normal Bone Susana ow Transplant: 4.0-12.0, Therapeutic: 5.0-15.0 [facility] Comment on above: Order Comment: Pleas e draw at specified interval PRIOR to dose. Do not hold dose to wait for level. Specimens batched twice per day, (M-F) and once per day weekendsMethod performed is a chemiluminescent microparticle immunoasssay on the [employer]er Material Electron Microscopist i2000.The range is based on experience at [facility] and users should be aware that target concentrations vary widely depending on concomitant therapy, time post-transplant, and desired degree of immunosuppression. Performed By: #### T ACRO ####[facility] (DEFAULT)[address] [place] [address] CBC,PLATELETSon 09-10-2023 Hematocrit (Bld) [Volume fraction] 40.0 % Normal 39.6-48.8 [facility] Comment on above: Performed By: #### H EMOGC ####[facility] (DEFAULT)[address] [place] [address] Hemoglobin (Bld) [Mass/Vol] 12.7 g/dL Low 13.4-16.8 [facility] Comment on above: Performed By: #### H EMOGC ####[facility] (DEFAULT)[address] [place] [address] MCV (RBC) [Entitic vol] 86.0 fL Normal 79.0-94.5 [facility] Comment on above: Performed By: #### H EMOGC ####[facility] (DEFAULT)[address] [place] [address] Mean Cell Hgb 27.3 pg Normal 26.1-33.3 [facility] Comment on above: Performed By: #### H EMOGC ####[facility] (DEFAULT)[address] [place] [address] Mean Cell Hgb Conc 31.8 g/dL Low 31.9-36.5 [facility] Comment on above: Performed By: #### H EMOGC ####[facility] (DEFAULT)[address] [place] [address] Platelet mean volume (Bld) [Entitic vol] 9.5 fL Normal 8.7-12.3 [facility] Comment on above: Performed By: #### H EMO ####[facility] (DEFAULT)[address] [place] [address] Platelets (Bld) [#/Vol] 225 10*3/uL Normal 146-337 [facility] Comment on above: Performed By: #### H EMO ####[facility] (DEFAULT)[address] [place] [address] RBC (Bld) [#/Vol] 4.65 10*6/uL Normal 4.38-5.83 [facility] Comment on above: Performed By: #### H EMO ####[facility] (DEFAULT)[address] [place] [address] RBC Distribution 13.9 % Normal 10.9-14.3 [facility] Comment on above: Performed By: #### H EMO ####[facility] (DEFAULT)[address] [facility] [place] [address] WBC (Bld) [#/Vol] 6.52 10*3/uL Normal 3.73-10.10 [facility] Comment on above: Performed By: #### H EMO ####[facility] (DEFAULT)[address] [place] [address] Erythrocyte distribution width (RBC) [Ratio] 13.9 % 10.9 - 14.3 % [facility] Hematocrit (Bld) [Volume fraction] 40.0 % 39.6 - 48.8 % [facility] Hemoglobin (Bld) [Mass/Vol] 12.7 g/dL Low 13.4 - 16.8 g/dL [facility] Interpretation and review of laboratory results Abnormal [facility] MCH (RBC) [Entitic mass] 27.3 pg 26.1 - 33.3 pg [facility] MCHC (RBC) [Mass/Vol] 31.8 g/dL Low 31.9 - 36.5 g/dL [facility] MCV (RBC) [Entitic vol] 86.0 fL 79.0 - 94.5 fL [facility] Platelet mean volume (Bld) [Entitic vol] 9.5 fL 8.7 - 12.3 fL [facility] Platelets (Bld) [#/Vol] 225 10*3/uL 146 - 337 K/uL [facility] RBC (Bld) [#/Vol] 4.65 10*6/uL [facility] WBC (Bld) [#/Vol] 6.52 10*3/uL 3.73 - 10. 10 K/uL [facility] CHEM 7 (LYTES,BUN,CREA,GLUC) on 09-10-2023 Anion gap [Moles/Vol] 13 mmol/L Normal 7-17 [facility] Comment on above: Performed By: #### T ACRO #### [facility] (DEFAULT) [address] [address] Chloride [Moles/Vol] 111 mmol/L High 98-108 [facility] Comment on above: Performed By: #### T ACRO #### [facility] (DEFAULT) [address] [address] CO2 [Moles/Vol] 20 mmol/L Low 21-31 [facility] Comment on above: Performed By: #### T ACRO #### [facility] (DEFAULT) [address] [address] Creatinine [Mass/Vol] 1.27 mg/dL Normal 0.70-1.30 [facility] Comment on above: Performed By: #### T ACRO #### [facility] (DEFAULT) [address] [address] GFR/1.73 sq M.predicted among non-blacks MDRD (S/P/Bld) [Vol rate/Area] 68 mL/min/{1.73_m2} Normal >=60 [facility] Comment on above: Result Comment: Repo rted eGFR is based on the CKD-EPI 2020 equation using creatinine, age, and sex. Performed By: #### T ACRO #### [facility] (DEFAULT) [address] [place] [address] Glucose [Mass/Vol] 100 mg/dL High 70-99 [facility] Comment on above: Performed By: #### T ACRO #### [facility] (DEFAULT) [address] [place] [address] Osmolality [Osmolality] 293 mosm/kg Normal 278-305 [facility] Comment on above: Performed By: #### T ACRO #### [facility] (DEFAULT) [address] [place] [address] Potassium [Moles/Vol] 4.4 mmol/L Normal 3.5-5.0 [facility] Comment on above: Performed By: #### T ACRO #### [facility] (DEFAULT) [address] [place] [address] Sodium [Moles/Vol] 140 mmol/L Normal 135-145 [facility] Comment on above: Performed By: #### T ACRO #### [facility] (DEFAULT) [address] [place] [address] Urea nitrogen [Mass/Vol] 12 mg/dL Normal 7-25 [facility] Comment on above: Performed By: #### T ACRO #### [facility] (DEFAULT) [address] [place] [address] Urea nitrogen/Creatinine [Mass ratio] 9 mg/mg Normal [facility] Comment on above: Performed By: #### T ACRO #### [facility] (DEFAULT) [address] [place] [address] Anion gap [Moles/Vol] 13 mmol/L 7 - 17 mmol/L [facility] Chloride [Moles/Vol] 111 mmol/L High 98 - 10 8 mmol/L [facility] CO2 [Moles/Vol] 20 mmol/L Low 21 - 31 mmol/L [facility] Creatinine [Mass/Vol] 1.27 mg/dL 0.70 - 1.30 mg/dL [facility] eGFR, CKD-EPI, Male 69 - PINF [facility] Glucose [Mass/Vol] 100 mg/dL High 70 - 99 mg/dL [facility] Osmolality Calc [Osmolality] 293 [facility] Potassium [Moles/Vol] 4.4 mmol/L 3.5 - 5.0 mmol/L [facility] Sodium [Moles/Vol] 140 mmol/L 135 - 145 mmol/L [facility] Urea nitrogen [Mass/Vol] 12 mg/dL 7 - 25 mg/dL [facility] Urea nitrogen/Creatinine [Mass ratio] 9 mg/mg [facility] HEPATIC FUNCTION PANELon Albumin [Mass/Vol] 3.3 g/dL Low 3.5-5.0 [facility] Comment on above: Performed By: #### T ACRO #### [facility] (DEFAULT) [address] [place] [address] ALP [Catalytic activity/Vol] 143 U/L High 32-126 [facility] Comment on above: Performed By: #### T ACRO #### [facility] (DEFAULT) [address] [place] [address] ALT [Catalytic activity/Vol] 28 U/L Normal 10-52 [facility] Comment on above: Performed By: #### T ACRO #### [facility] (DEFAULT) [address] [place] [address] AST [Catalytic activity/Vol] 29 U/L Normal 10-39 [facility] Comment on above: Performed By: #### T ACRO #### [facility] (DEFAULT) [address] [place] [address] Bilirubin [Mass/Vol] 0.9 mg/dL Normal <1.5 [facility] Comment on above: Performed By: #### T ACRO #### [facility] (DEFAULT) [address] [place] [address] Bilirubin.indirect [Mass/Vol] 0.2 mg/dL Normal <0.3 [facility] Comment on above: Performed By: #### T ACRO #### [facility] (DEFAULT) [address] [place] [address] Protein [Mass/Vol] 6.8 g/dL Normal 6.4-8.3 [facility] Comment on above: Performed By: #### T ACRO #### [facility] (DEFAULT) [address] [place] [address] Albumin [Mass/Vol] 3.3 g/dL Low 3.5 - 5.0 g/dL [facility] ALP [Catalytic activity/Vol] 143 U/L High 32 - 126 U/L [facility] ALT [Catalytic activity/Vol] 28 U/L 10 - 52 U/L [facility] AST [Catalytic activity/Vol] 29 U/L 10 - 39 U/L [facility] Bilirubin [Mass/Vol] 0.9 mg/dL [facility] mg/dL [facility] Bilirubin.direct [Mass/Vol] 0.2 mg/dL NINF - 0.3 mg/dL [facility] Protein [Mass/Vol] 6.8 g/dL 6.4 - 8.3 g/dL [facility] MAGNESIUMon 09-10-2023 Magnesium [Mass/Vol] 1.9 mg/dL Normal 1.6-2.6 [facility] Comment on above: Performed By: #### T ACRO #### [facility] (DEFAULT) [address] [place] [address] Interpretation and review of laboratory results Normal [facility] Magnesium [Mass/Vol] 1.9 mg/dL 1.6 - 2 .6 mg/dL [facility] No Panel Informationon 09-10 Interpretation and review of laboratory results Abnormal [facility] TACROLIMUS LEVEL, TROUGH (UT E DRUG LEVEL)Ordered By: Jimy Castillo on 09-10-2023 Interpretation and review of laboratory results Normal [facility] Tacrolimus (Bld) [Mass/Vol] 11.8 ng/mL [facility] TACROLIMUS LEVEL, TROUGH (UT E DRUG LEVEL)on 09-10-2023 Tacrolimus, Trough 11.8 ng/mL Normal Bone Susana ow Transplant: 4.0-12.0, Therapeutic: 5.0-15.0 [facility] Comment on above: Order Comment: Pleas e draw at specified interval PRIOR to dose. Do not hold dose to wait for level. Specimens batched twice per day, (M-) and once per day weekends Method performed is a chemiluminescent microparticle immunoasssay on the [employer] Electron Microscopist i2000. The range is based on experience at [facility] and users should be aware that target concentrations vary widely depending on concomitant therapy, time post-transplant, and desired degree of immunosuppression. Performed By: #### T ACRO #### [facility] (DEFAULT) [address] [place] [address] CHEM 7 (LYTES,BUN,CREA,GLUC) on 09-09-2023 Anion gap [Moles/Vol] 14 mmol/L Normal 7-17 [facility] Comment on above: Performed By: #### C HM7, IPB, MGO ####[facility] (DEFAULT)[address] [place] [address] Chloride [Moles/Vol] 113 mmol/L High 98-108 [facility] Comment on above: Performed By: #### C HM7, IPB, MGO ####[facility] (DEFAULT)[address] [place] [address] CO2 [Moles/Vol] 18 mmol/L Low 21-31 [facility] Comment on above: Performed By: #### C HM7, IPB, MGO ####[facility] (DEFAULT)[address] [place] [address] Creatinine [Mass/Vol] 1.03 mg/dL Normal 0.70-1.30 [facility] Comment on above: Performed By: #### JO ANN GONG, MGO ####[facility] (DEFAULT)[address] [place] [address] GFR/1.73 sq M.predicted among non-blacks MDRD (S/P/Bld) [Vol rate/Area] 87 mL/min/{1.73_m2} Normal >=60 [facility] Comment on above: Result Comment: Repo rted eGFR is based on the CKD-EPI 2020 equation using creatinine, age, and sex. Performed By: #### JO ANN GONG, MGO ####[facility] (DEFAULT)[address] [facility] [place] [address] Glucose [Mass/Vol] 106 mg/dL High 70-99 [facility] Comment on above: Performed By: #### JO ANN GONG, MGO ####[facility] [facility] (DEFAULT)[address] [facility] [place] [address] Osmolality [Osmolality] 294 mosm/kg Normal 278-305 [facility] Comment on above: Performed By: #### JO ANN GONG, MGO ####[facility] (DEFAULT)[address] [facility] [place] [address] Potassium [Moles/Vol] 4.0 mmol/L Normal 3.5-5.0 [facility] Comment on above: Performed By: #### JO ANN GONG, MGO ####[facility] (DEFAULT)[address] [place] [address] Sodium [Moles/Vol] 141 mmol/L Normal 135-145 [facility] Comment on above: Performed By: #### JO ANN GONG, MGO ####[facility] (DEFAULT)[address] [place] [address] Urea nitrogen [Mass/Vol] 10 mg/dL Normal 7-25 [facility] Comment on above: Performed By: #### JO ANN GONG MGO ####[facility] (DEFAULT)[address] [place] [address] Urea nitrogen/Creatinine [Mass ratio] 10 mg/mg Normal [facility] Comment on above: Performed By: #### JO ANN GONG MGO ####[facility] (DEFAULT)[address] [place] [address] Anion gap [Moles/Vol] 14 mmol/L 7 - 17 mmol/L [facility] Chloride [Moles/Vol] 113 mmol/L High 98 - 10 8 mmol/L [facility] CO2 [Moles/Vol] 18 mmol/L Low 21 - 31 mmol/L [facility] Creatinine [Mass/Vol] 1.03 mg/dL 0.70 - 1.30 mg/dL [facility] eGFR, CKD-EPI, Male 87 - PINF [facility] Glucose [Mass/Vol] 106 mg/dL High 70 - 99 mg/dL [facility] Interpretation and review of laboratory results Abnormal [facility] Osmolality Calc [Osmolality] 294 [facility] Potassium [Moles/Vol] 4.0 mmol/L 3.5 - 5.0 mmol/L [facility] Sodium [Moles/Vol] 141 mmol/L 135 - 145 mmol/L [facility] Urea nitrogen [Mass/Vol] 10 mg/dL 7 - 25 mg/dL [facility] Urea nitrogen/Creatinine [Mass ratio] 10 mg/mg [facility] MAGNESIUMon 09-09-2023 Magnesium [Mass/Vol] 1.6 mg/dL Normal 1.6-2.6 [facility] Comment on above: Performed By: #### JO ANN GONG, MGO ####[facility] (DEFAULT)[address] [place] [address] Magnesium [Mass/Vol] 1.6 mg/dL 1.6 - 2 .6 mg/dL [facility] No Panel Informationon 09-09 Interpretation and review of laboratory results Normal [facility] PHOSPHATE, INORGANICon 09-09 Phosphorous 3.8 mg/dL Normal 2.2-4.6 [facility] Comment on above: Performed By: #### C HM7, IPB, MGO ####[facility] (DEFAULT)[address] [place] [address] Phosphate [Mass/Vol] 3.8 mg/dL 2.2 - 4 .6 mg/dL [facility] TACROLIMUS LEVEL, TROUGH (UT E DRUG LEVEL)on 09-09-2023 Interpretation and review of laboratory results Normal [facility] Tacrolimus (Bld) [Mass/Vol] 9.2 ng/mL [facility] Tacrolimus, Trough 9.2 ng/mL Normal Bone Susana ow Transplant: 4.0-12.0, Therapeutic: 5.0-15.0 [facility] Comment on above: Order Comment: Pleas e draw at specified interval PRIOR to dose. Do not hold dose to wait for level. Specimens batched twice per day, (M-F) and once per day weekendsMethod performed is a chemiluminescent microparticle immunoasssay on the [employer] i2000.The range is based on experience at [facility] and users should be aware that target concentrations vary widely depending on concomitant therapy, time post-transplant, and desired degree of immunosuppression. Performed By: #### H EMO #### [facility] (DEFAULT) [address] [place] [address] CBC,PLATELETSon 09-08-2023 Hematocrit (Bld) [Volume fraction] 36.1 % Low 39.6-48.8 [facility] Comment on above: Performed By: #### T ACRO #### [facility] (DEFAULT) [address] [place] [address] Hemoglobin (Bld) [Mass/Vol] 11.6 g/dL Low 13.4-16.8 [facility] Comment on above: Performed By: #### T ACRO #### [facility] (DEFAULT) [address] [place] [address] MCV (RBC) [Entitic vol] 85.1 fL Normal 79.0-94.5 [facility] Comment on above: Performed By: #### T ACRO #### [facility] (DEFAULT) [address] [address] Mean Cell Hgb 27.4 pg Normal 26.1-33.3 [facility] Comment on above: Performed By: #### T ACRO #### [facility] (DEFAULT) [address] [address] Mean Cell Hgb Conc 32.1 g/dL Normal 31.9-36.5 [facility] Comment on above: Performed By: #### T ACRO #### [facility] (DEFAULT) [address] [address] Platelet mean volume (Bld) [Entitic vol] 9.5 fL Normal 8.7-12.3 [facility] Comment on above: Performed By: #### T ACRO #### [facility] (DEFAULT) [address] [address] Platelets (Bld) [#/Vol] 182 10*3/uL Normal 146-337 [facility] Comment on above: Performed By: #### T ACRO #### [facility] (DEFAULT) [address] [address] RBC (Bld) [#/Vol] 4.24 10*6/uL Low 4.38-5.83 [facility] Comment on above: Performed By: #### T ACRO #### [facility] (DEFAULT) [address] [address] RBC Distribution 13.6 % Normal 10.9-14.3 [facility] Comment on above: Performed By: #### T ACRO #### [facility] (DEFAULT) [address] [place] [address] WBC (Bld) [#/Vol] 4.59 10*3/uL Normal 3.73-10.10 [facility] Comment on above: Performed By: #### T ACRO #### [facility] (DEFAULT) [address] [place] [address] Erythrocyte distribution width (RBC) [Ratio] 13.6 % 10.9 - 14.3 % [facility] Hematocrit (Bld) [Volume fraction] 36.1 % Low 39.6 - 48.8 % [facility] Hemoglobin (Bld) [Mass/Vol] 11.6 g/dL Low 13.4 - 16.8 g/dL [facility] Interpretation and review of laboratory results Abnormal [facility] MCH (RBC) [Entitic mass] 27.4 pg 26.1 - 33.3 pg [facility] MCHC (RBC) [Mass/Vol] 32.1 g/dL 31.9 - 36.5 g/dL [facility] MCV (RBC) [Entitic vol] 85.1 fL 79.0 - 94.5 fL [facility] Platelet mean volume (Bld) [Entitic vol] 9.5 fL 8.7 - 12.3 fL [facility] Platelets (Bld) [#/Vol] 182 10*3/uL 146 - 337 K/uL [facility] RBC (Bld) [#/Vol] 4.24 10*6/uL Low [facility] WBC (Bld) [#/Vol] 4.59 10*3/uL 3.73 - 10. 10 K/uL [facility] CHEM 7 (LYTES,BUN,CREA,GLUC) on 09-08-2023 Anion gap [Moles/Vol] 12 mmol/L Normal 7-17 [facility] Comment on above: Performed By: #### H EMOGC #### [facility] (DEFAULT) [address] [place] [address] Chloride [Moles/Vol] 113 mmol/L High 98-108 [facility] Comment on above: Performed By: #### H EMO #### [facility] (DEFAULT) [address] [address] CO2 [Moles/Vol] 21 mmol/L Normal 21-31 [facility] Comment on above: Performed By: #### H EMO #### [facility] (DEFAULT) [address] [address] Creatinine [Mass/Vol] 1.14 mg/dL Normal 0.70-1.30 [facility] Comment on above: Performed By: #### H [facility] #### [facility] (DEFAULT) [address] [address] GFR/1.73 sq M.predicted among non-blacks MDRD (S/P/Bld) [Vol rate/Area] 77 mL/min/{1.73_m2} Normal >=60 [facility] Comment on above: Result Comment: Repo rted eGFR is based on the CKD-EPI 2020 equation using creatinine, age, and sex. Performed By: #### H EMO #### [facility] (DEFAULT) [address] [address] Glucose [Mass/Vol] 107 mg/dL High 70-99 [facility] Comment on above: Performed By: #### H EMO #### [facility] (DEFAULT) [address] [address] Osmolality [Osmolality] 296 mosm/kg Normal 278-305 [facility] Comment on above: Performed By: #### H EMO #### [facility] (DEFAULT) [address] [address] Potassium [Moles/Vol] 3.9 mmol/L Normal 3.5-5.0 [facility] Comment on above: Performed By: #### H EMOGC #### [facility] (DEFAULT) [address] [address] Sodium [Moles/Vol] 142 mmol/L Normal 135-145 [facility] Comment on above: Performed By: #### H [facility] #### [facility] (DEFAULT) [address] [place] [address] Urea nitrogen [Mass/Vol] 11 mg/dL Normal 7-25 [facility] Comment on above: Performed By: #### H EMO #### [facility] (DEFAULT) [address] [place] [address] Urea nitrogen/Creatinine [Mass ratio] 10 mg/mg Normal [facility] Comment on above: Performed By: #### H [facility] #### [facility] (DEFAULT) [address] [place] [address] Anion gap [Moles/Vol] 12 mmol/L 7 - 17 mmol/L [facility] Chloride [Moles/Vol] 113 mmol/L High 98 - 10 8 mmol/L [facility] CO2 [Moles/Vol] 21 mmol/L 21 - 31 mmol/L [facility] Creatinine [Mass/Vol] 1.14 mg/dL 0.70 - 1.30 mg/dL [facility] eGFR, CKD-EPI, Male 77 - PINF [facility] Glucose [Mass/Vol] 107 mg/dL High 70 - 99 mg/dL [facility] Osmolality Calc [Osmolality] 296 [facility] Potassium [Moles/Vol] 3.9 mmol/L 3.5 - 5.0 mmol/L [facility] Sodium [Moles/Vol] 142 mmol/L 135 - 145 mmol/L [facility] Urea nitrogen [Mass/Vol] 11 mg/dL 7 - 25 mg/dL [facility] Urea nitrogen/Creatinine [Mass ratio] 10 mg/mg [facility] HEPATIC FUNCTION PANELon Albumin [Mass/Vol] 2.9 g/dL Low 3.5-5.0 [facility] Comment on above: Performed By: #### H [facility] #### [facility] (DEFAULT) [address] [place] [address] ALP [Catalytic activity/Vol] 133 U/L High 32-126 [facility] Comment on above: Performed By: #### H EMO #### [facility] (DEFAULT) [address] [place] [address] ALT [Catalytic activity/Vol] 23 U/L Normal 10-52 [facility] Comment on above: Performed By: #### H EMO #### [facility] (DEFAULT) [address] [place] [address] AST [Catalytic activity/Vol] 23 U/L Normal 10-39 [facility] Comment on above: Performed By: #### H EMO #### [facility] (DEFAULT) [address] [place] [address] Bilirubin [Mass/Vol] 0.8 mg/dL Normal <1.5 [facility] Comment on above: Performed By: #### H EMO #### [facility] (DEFAULT) [address] [place] [address] Bilirubin.indirect [Mass/Vol] 0.2 mg/dL Normal <0.3 [facility] Comment on above: Performed By: #### H EMO #### [facility] (DEFAULT) [address] [place] [address] Protein [Mass/Vol] 5.9 g/dL Low 6.4-8.3 [facility] Comment on above: Performed By: #### H EMO #### [facility] (DEFAULT) [address] [place] [address] Albumin [Mass/Vol] 2.9 g/dL Low 3.5 - 5.0 g/dL [facility] ALP [Catalytic activity/Vol] 133 U/L High 32 - 126 U/L [facility] ALT [Catalytic activity/Vol] 23 U/L 10 - 52 U/L [facility] AST [Catalytic activity/Vol] 23 U/L 10 - 39 U/L [facility] Bilirubin [Mass/Vol] 0.8 mg/dL NINF - 1.5 mg/dL [facility] Bilirubin.direct [Mass/Vol] 0.2 mg/dL NINF - 0.3 mg/dL [facility] Protein [Mass/Vol] 5.9 g/dL Low 6.4 - 8.3 g/dL [facility] MAGNESIUMon 09-08-2023 Magnesium [Mass/Vol] 1.8 mg/dL Normal 1.6-2.6 [facility] Comment on above: Performed By: #### H [facility] #### [facility] (DEFAULT) [address] [place] [address] Interpretation and review of laboratory results Normal [facility] Magnesium [Mass/Vol] 1.8 mg/dL 1.6 - 2 .6 mg/dL [facility] No Panel Informationon 09-08 Interpretation and review of laboratory results Abnormal [facility] PHOSPHATE, INORGANICon 09-08 Interpretation and review of laboratory results Normal [facility] Phosphate [Mass/Vol] 4.1 mg/dL 2.2 - 4 .6 mg/dL [facility] Phosphorous 4.1 mg/dL Normal 2.2-4.6 [facility] Comment on above: Performed By: #### H [facility] #### [facility] (DEFAULT) [address] [place] [address] TACROLIMUS LEVEL, TROUGH (UT E DRUG LEVEL)on 09-08-2023 Interpretation and review of laboratory results Normal [facility] Tacrolimus (Bld) [Mass/Vol] 8.5 ng/mL [facility] Tacrolimus, Trough 8.5 ng/mL Normal Bone Susana ow Transplant: 4.0-12.0, Therapeutic: 5.0-15.0 [facility] Comment on above: Order Comment: Pleas e draw at specified interval PRIOR to dose. Do not hold dose to wait for level. Specimens batched twice per day, (M-F) and once per day weekendsMethod performed is a chemiluminescent microparticle immunoasssay on the [employer] i2000.The range is based on experience at [facility] and users should be aware that target concentrations vary widely depending on concomitant therapy, time post-transplant, and desired degree of immunosuppression. Performed By: #### N ONGNNONFNA #### [facility] (DEFAULT) [address] [address] CBC,PLATELETSon 09-07-2023 Hematocrit (Bld) [Volume fraction] 37.1 % Low 39.6-48.8 [facility] Comment on above: Performed By: #### Vale [place] #### [facility] (DEFAULT) [address] [address] Hemoglobin (Bld) [Mass/Vol] 11.9 g/dL Low 13.4-16.8 [facility] Comment on above: Performed By: #### Vale UNDER[place]OD #### [facility] (DEFAULT) [address] [address] MCV (RBC) [Entitic vol] 86.5 fL Normal 79.0-94.5 [facility] Comment on above: Performed By: #### Vale UNDERWOOD #### [facility] (DEFAULT) [address] [address] Mean Cell Hgb 27.7 pg Normal 26.1-33.3 [facility] Comment on above: Performed By: #### Vale UNDERWOOD #### [facility] (DEFAULT) [address] [address] Mean Cell Hgb Conc 32.1 g/dL Normal 31.9-36.5 [facility] Comment on above: Performed By: #### Vale UNDERWOOD #### [facility] (DEFAULT) [address] [address] Platelet mean volume (Bld) [Entitic vol] 9.6 fL Normal 8.7-12.3 [facility] Comment on above: Performed By: #### G YASMINE #### [facility] (DEFAULT) [address] [place] [address] Platelets (Bld) [#/Vol] 176 10*3/uL Normal 146-337 [facility] Comment on above: Performed By: #### Vale [place] #### [facility] (DEFAULT) [address] [place] [address] RBC (Bld) [#/Vol] 4.29 10*6/uL Low 4.38-5.83 [facility] Comment on above: Performed By: #### Vale [place] #### [facility] (DEFAULT) [address] [place] [address] RBC Distribution 13.5 % Normal 10.9-14.3 [facility] Comment on above: Performed By: #### Vale UNDERWOOD #### [facility] (DEFAULT) [address] [place] [address] WBC (Bld) [#/Vol] 4.10 10*3/uL Normal 3.73-10.10 [facility] Comment on above: Performed By: #### Vale [place]ER[place] #### [facility] (DEFAULT) [address] [place] [address] Erythrocyte distribution width (RBC) [Ratio] 13.5 % 10.9 - 14.3 % [facility] Hematocrit (Bld) [Volume fraction] 37.1 % Low 39.6 - 48.8 % [facility] Hemoglobin (Bld) [Mass/Vol] 11.9 g/dL Low 13.4 - 16.8 g/dL [facility] Interpretation and review of laboratory results Abnormal [facility] MCH (RBC) [Entitic mass] 27.7 pg 26.1 - 33.3 pg [facility] MCHC (RBC) [Mass/Vol] 32.1 g/dL 31.9 - 36.5 g/dL [facility] MCV (RBC) [Entitic vol] 86.5 fL 79.0 - 94.5 fL [facility] Platelet mean volume (Bld) [Entitic vol] 9.6 fL 8.7 - 12.3 fL [facility] Platelets (Bld) [#/Vol] 176 10*3/uL 146 - 337 K/uL [facility] RBC (Bld) [#/Vol] 4.29 10*6/uL Low [facility] WBC (Bld) [#/Vol] 4.10 10*3/uL 3.73 - 10. 10 K/uL [facility] CHEM 7 (LYTES,BUN,CREA,GLUC) on 09-07-2023 Anion gap [Moles/Vol] 13 mmol/L Normal 7-17 [facility] Comment on above: Performed By: #### Y PNRP #### [facility] (DEFAULT) [address] [place] [address] Chloride [Moles/Vol] 113 mmol/L High 98-108 [facility] Comment on above: Performed By: #### Y PNRP #### [facility] (DEFAULT) [address] [place] [address] CO2 [Moles/Vol] 19 mmol/L Low 21-31 [facility] Comment on above: Performed By: #### Y PNRP #### [facility] (DEFAULT) [address] [place] [address] Creatinine [Mass/Vol] 1.22 mg/dL Normal 0.70-1.30 [facility] Comment on above: Performed By: #### Y PNRP #### [facility] (DEFAULT) [address] [place] [address] GFR/1.73 sq M.predicted among non-blacks MDRD (S/P/Bld) [Vol rate/Area] 71 mL/min/{1.73_m2} Normal >=60 [facility] Comment on above: Result Comment: Repo rted eGFR is based on the CKD-EPI 2020 equation using creatinine, age, and sex. Performed By: #### Y PNRP #### [facility] (DEFAULT) [address] [place] [address] Glucose [Mass/Vol] 107 mg/dL High 70-99 [facility] Comment on above: Performed By: #### Y PNRP #### [facility] (DEFAULT) [address] [place] [address] Osmolality [Osmolality] 295 mosm/kg Normal 278-305 [facility] Comment on above: Performed By: #### Y PNRP #### [facility] (DEFAULT) [address] [place] [address] Potassium [Moles/Vol] 3.9 mmol/L Normal 3.5-5.0 [facility] Comment on above: Performed By: #### Y PNRP #### [facility] (DEFAULT) [address] [place] [address] Sodium [Moles/Vol] 141 mmol/L Normal 135-145 [facility] Comment on above: Performed By: #### Y PNRP #### [facility] (DEFAULT) [address] [place] [address] Urea nitrogen [Mass/Vol] 13 mg/dL Normal 7-25 [facility] Comment on above: Performed By: #### Y PNRP #### [facility] (DEFAULT) [address] [place] [address] Urea nitrogen/Creatinine [Mass ratio] 11 mg/mg Normal [facility] Comment on above: Performed By: #### Y PNRP #### [facility] (DEFAULT) [address] [place] [address] Anion gap [Moles/Vol] 13 mmol/L 7 - 17 mmol/L [facility] Chloride [Moles/Vol] 113 mmol/L High 98 - 10 8 mmol/L [facility] CO2 [Moles/Vol] 19 mmol/L Low 21 - 31 mmol/L [facility] Creatinine [Mass/Vol] 1.22 mg/dL 0.70 - 1.30 mg/dL [facility] eGFR, CKD-EPI, Male 71 - PINF [facility] Glucose [Mass/Vol] 107 mg/dL High 70 - 99 mg/dL [facility] Osmolality Calc [Osmolality] 295 [facility] Potassium [Moles/Vol] 3.9 mmol/L 3.5 - 5.0 mmol/L [facility] Sodium [Moles/Vol] 141 mmol/L 135 - 145 mmol/L [facility] Urea nitrogen [Mass/Vol] 13 mg/dL 7 - 25 mg/dL [facility] Urea nitrogen/Creatinine [Mass ratio] 11 mg/mg [facility] HEPATIC FUNCTION PANELon Albumin [Mass/Vol] 2.9 g/dL Low 3.5-5.0 [facility] Comment on above: Performed By: #### Y PNRP #### [facility] (DEFAULT) [address] [place] [address] ALP [Catalytic activity/Vol] 111 U/L Normal 32-126 [facility] Comment on above: Performed By: #### Y PNRP #### [facility] (DEFAULT) [address] [address] ALT [Catalytic activity/Vol] 18 U/L Normal 10-52 [facility] Comment on above: Performed By: #### Y PNRP #### [facility] (DEFAULT) [address] [place] [address] AST [Catalytic activity/Vol] 23 U/L Normal 10-39 [facility] Comment on above: Performed By: #### Y PNRP #### [facility] (DEFAULT) [address] [place] [address] Bilirubin [Mass/Vol] 0.8 mg/dL Normal <1.5 [facility] Comment on above: Performed By: #### Y PNRP #### [facility] (DEFAULT) [address] [place] [address] Bilirubin.indirect [Mass/Vol] 0.3 mg/dL High <0.3 [facility] Comment on above: Performed By: #### Y PNRP #### [facility] (DEFAULT) [address] [place] [address] Protein [Mass/Vol] 6.0 g/dL Low 6.4-8.3 [facility] Comment on above: Performed By: #### Y PNRP #### [facility] (DEFAULT) [address] [place] [address] Albumin [Mass/Vol] 2.9 g/dL Low 3.5 - 5.0 g/dL [facility] ALP [Catalytic activity/Vol] 111 U/L 32 - 126 U/L [facility] ALT [Catalytic activity/Vol] 18 U/L 10 - 52 U/L [facility] AST [Catalytic activity/Vol] 23 U/L 10 - 39 U/L [facility] Bilirubin [Mass/Vol] 0.8 mg/dL NINF - 1.5 mg/dL [facility] Bilirubin.direct [Mass/Vol] 0.3 mg/dL High NINF - 0.3 mg/dL [facility] Protein [Mass/Vol] 6.0 g/dL Low 6.4 - 8.3 g/dL [facility] MAGNESIUMon 09-07-2023 Magnesium [Mass/Vol] 1.7 mg/dL Normal 1.6-2.6 [facility] Comment on above: Performed By: #### Y PNRP #### [facility] (DEFAULT) [address] [place] [address] Interpretation and review of laboratory results Normal [facility] Magnesium [Mass/Vol] 1.7 mg/dL 1.6 - 2 .6 mg/dL [facility] No Panel Informationon 09-07 Interpretation and review of laboratory results Abnormal [facility] PHOSPHATE, INORGANICon 09-07 Phosphorous 4.4 mg/dL Normal 2.2-4.6 [facility] Comment on above: Performed By: #### Y PNRP #### [facility] (DEFAULT) [address] [address] Interpretation and review of laboratory results Normal [facility] Phosphate [Mass/Vol] 4.4 mg/dL 2.2 - 4 .6 mg/dL [facility] TACROLIMUS LEVEL, TROUGH (UT E DRUG LEVEL)Ordered By: Elizabeth Maldonado on 09-07-2023 Interpretation and review of laboratory results Normal [facility] Tacrolimus (Bld) [Mass/Vol] 7.8 ng/mL [facility] TACROLIMUS LEVEL, TROUGH (UT E DRUG LEVEL)on 09-07-2023 Tacrolimus, Trough 7.8 ng/mL Normal Bone Susana ow Transplant: 4.0-12.0, Therapeutic: 5.0-15.0 [facility] Comment on above: Order Comment: Pleas e draw at specified interval PRIOR to dose. Do not hold dose to wait for level. Specimens batched twice per day, (M-F) and once per day weekends Method performed is a chemiluminescent microparticle immunoasssay on the [employer] i2000. The range is based on experience at [facility] and users should be aware that target concentrations vary widely depending on concomitant therapy, time post-transplant, and desired degree of immunosuppression. Performed By: #### T ACRO #### [facility] (DEFAULT) [address] [place] [address] CBC,PLATELETSon 09-06-2023 Hematocrit (Bld) [Volume fraction] 38.4 % Low 39.6-48.8 [facility] Comment on above: Performed By: #### Y PNRP #### [facility] (DEFAULT) [address] [address] Hemoglobin (Bld) [Mass/Vol] 11.9 g/dL Low 13.4-16.8 [facility] Comment on above: Performed By: #### Y PNRP #### [facility] (DEFAULT) [address] [address] MCV (RBC) [Entitic vol] 85.9 fL Normal 79.0-94.5 [facility] Comment on above: Performed By: #### Y PNRP #### [facility] (DEFAULT) [address] [place] [address] Mean Cell Hgb 26.6 pg Normal 26.1-33.3 [facility] Comment on above: Performed By: #### Y PNRP #### [facility] (DEFAULT) [address] [place] [address] 37431 Mean Cell Hgb Conc 31.0 g/dL Low 31.9-36.5 [facility] Comment on above: Performed By: #### Y PNRP #### [facility] (DEFAULT) [address] [place] [address] Platelet mean volume (Bld) [Entitic vol] 9.7 fL Normal 8.7-12.3 [facility] Comment on above: Performed By: #### Y PNRP #### [facility] (DEFAULT) [address] [place] [address] Platelets (Bld) [#/Vol] 181 10*3/uL Normal 146-337 [facility] Comment on above: Performed By: #### Y PNRP #### [facility] (DEFAULT) [address] [place] [address]77 RBC (Bld) [#/Vol] 4.47 10*6/uL Normal 4.38-5.83 [facility] Comment on above: Performed By: #### Y PNRP #### [facility] (DEFAULT) [address] [place] [address] 31392 RBC Distribution 13.4 % Normal 10.9-14.3 [facility] Comment on above: Performed By: #### Y PNRP #### [facility] (DEFAULT) [address] [place] [address] 28898 WBC (Bld) [#/Vol] 4.41 10*3/uL Normal 3.73-10.10 [facility] Comment on above: Performed By: #### Y PNRP #### [facility] (DEFAULT) [address] [place] [address] Erythrocyte distribution width (RBC) [Ratio] 13.4 % 10.9 - 14.3 % [facility] Hematocrit (Bld) [Volume fraction] 38.4 % Low 39.6 - 48.8 % [facility] Hemoglobin (Bld) [Mass/Vol] 11.9 g/dL Low 13.4 - 16.8 g/dL [facility] Interpretation and review of laboratory results Abnormal [facility] MCH (RBC) [Entitic mass] 26.6 pg 26.1 - 33.3 pg [facility] MCHC (RBC) [Mass/Vol] 31.0 g/dL Low 31.9 - 36.5 g/dL [facility] MCV (RBC) [Entitic vol] 85.9 fL 79.0 - 94.5 fL [facility] Platelet mean volume (Bld) [Entitic vol] 9.7 fL 8.7 - 12.3 fL [facility] Platelets (Bld) [#/Vol] 181 10*3/uL 146 - 337 K/uL [facility] RBC (Bld) [#/Vol] 4.47 10*6/uL [facility] WBC (Bld) [#/Vol] 4.41 10*3/uL 3.73 - 10. 10 K/uL [facility] CHEM 7 (LYTES,BUN,CREA,GLUC) on 09-06-2023 Anion gap [Moles/Vol] 14 mmol/L 7 - 17 mmol/L [facility] Chloride [Moles/Vol] 109 mmol/L High 98 - 10 8 mmol/L [facility] CO2 [Moles/Vol] 19 mmol/L Low 21 - 31 mmol/L [facility] Creatinine [Mass/Vol] 1.26 mg/dL 0.70 - 1.30 mg/dL [facility] eGFR, CKD-EPI, Male 69 - PINF [facility] Glucose [Mass/Vol] 114 mg/dL High 70 - 99 mg/dL [facility] Osmolality Calc [Osmolality] 291 [facility] Potassium [Moles/Vol] 4.1 mmol/L 3.5 - 5.0 mmol/L [facility] Sodium [Moles/Vol] 138 mmol/L 135 - 145 mmol/L [facility] Urea nitrogen [Mass/Vol] 16 mg/dL 7 - 25 mg/dL [facility] Urea nitrogen/Creatinine [Mass ratio] 13 mg/mg [facility] Anion gap [Moles/Vol] 14 mmol/L Normal 7-17 [facility] Comment on above: Performed By: #### L EGN #### [facility] (DEFAULT) [address] [place] [address] Chloride [Moles/Vol] 109 mmol/L High 98-108 [facility] Comment on above: Performed By: #### L EGN #### [facility] (DEFAULT) [address] [place] [address] CO2 [Moles/Vol] 19 mmol/L Low 21-31 [facility] Comment on above: Performed By: #### L EGN #### [facility] (DEFAULT) [address] [place] [address] Creatinine [Mass/Vol] 1.26 mg/dL Normal 0.70-1.30 [facility] Comment on above: Performed By: #### L EGN #### [facility] (DEFAULT) [address] [place] [address] GFR/1.73 sq M.predicted among non-blacks MDRD (S/P/Bld) [Vol rate/Area] 69 mL/min/{1.73_m2} Normal >=60 [facility] Comment on above: Result Comment: Repo rted eGFR is based on the CKD-EPI 2020 equation using creatinine, age, and sex. Performed By: #### L EGN #### [facility] (DEFAULT) [address] [place] [address]84 Glucose [Mass/Vol] 114 mg/dL High 70-99 [facility] Comment on above: Performed By: #### L EGN #### [facility] (DEFAULT) [address] [place] [address] Osmolality [Osmolality] 291 mosm/kg Normal 278-305 [facility] Comment on above: Performed By: #### L EGN #### [facility] (DEFAULT) [address] [place] [address] Potassium [Moles/Vol] 4.1 mmol/L Normal 3.5-5.0 [facility] Comment on above: Performed By: #### L EGN #### [facility] (DEFAULT) [address] [place] [address] Sodium [Moles/Vol] 138 mmol/L Normal 135-145 [facility] Comment on above: Performed By: #### L EGN #### [facility] (DEFAULT) [address] [place] [address] Urea nitrogen [Mass/Vol] 16 mg/dL Normal 7-25 [facility] Comment on above: Performed By: #### L EGN #### [facility] (DEFAULT) [address] [place] [address]14 Urea nitrogen/Creatinine [Mass ratio] 13 mg/mg Normal [facility] Comment on above: Performed By: #### L EGN #### [facility] (DEFAULT) [address] [place] [address] HEPATIC FUNCTION PANELon Albumin [Mass/Vol] 3.0 g/dL Low 3.5 - 5.0 g/dL [facility] ALP [Catalytic activity/Vol] 115 U/L 32 - 126 U/L [facility] ALT [Catalytic activity/Vol] 25 U/L 10 - 52 U/L [facility] AST [Catalytic activity/Vol] 31 U/L 10 - 39 U/L [facility] Bilirubin [Mass/Vol] 1.0 mg/dL NINF - 1.5 mg/dL [facility] Bilirubin.direct [Mass/Vol] 0.3 mg/dL High NINF - 0.3 mg/dL [facility] Protein [Mass/Vol] 6.3 g/dL Low 6.4 - 8.3 g/dL [facility] Albumin [Mass/Vol] 3.0 g/dL Low 3.5-5.0 [facility] Comment on above: Performed By: #### L EGN #### [facility] (DEFAULT) [address] [place] [address] ALP [Catalytic activity/Vol] 115 U/L Normal 32-126 [facility] Comment on above: Performed By: #### L EGN #### [facility] (DEFAULT) [address] [place] [address] ALT [Catalytic activity/Vol] 25 U/L Normal 10-52 [facility] Comment on above: Performed By: #### L EGN #### [facility] (DEFAULT) [address] [place] [address] AST [Catalytic activity/Vol] 31 U/L Normal 10-39 [facility] Comment on above: Performed By: #### L EGN #### [facility] (DEFAULT) [address] [place] [address] Bilirubin [Mass/Vol] 1.0 mg/dL Normal <1.5 [facility] Comment on above: Performed By: #### L EGN #### [facility] (DEFAULT) [address] [place] [address] Bilirubin.indirect [Mass/Vol] 0.3 mg/dL High <0.3 [facility] Comment on above: Performed By: #### L EGN #### [facility] (DEFAULT) [address] [place] [address] Protein [Mass/Vol] 6.3 g/dL Low 6.4-8.3 [facility] Comment on above: Performed By: #### L EGN #### [facility] (DEFAULT) [address] [place] [address] MAGNESIUMon 09-06-2023 Interpretation and review of laboratory results Normal [facility] Magnesium [Mass/Vol] 2.0 mg/dL 1.6 - 2 .6 mg/dL [facility] Magnesium [Mass/Vol] 2.0 mg/dL Normal 1.6-2.6 [facility] Comment on above: Performed By: #### L EGN #### [facility] (DEFAULT) [address] [place] [address] No Panel Informationon 09-06 Interpretation and review of laboratory results Abnormal [facility] TACROLIMUS LEVEL, TROUGH (UT E DRUG LEVEL)on 09-06-2023 Interpretation and review of laboratory results Normal [facility] Tacrolimus (Bld) [Mass/Vol] 6.7 ng/mL [facility] Tacrolimus, Trough 6.7 ng/mL Normal Bone Susana ow Transplant: 4.0-12.0, Therapeutic: 5.0-15.0 [facility] Comment on above: Order Comment: Pleas e draw at specified interval PRIOR to dose. Do not hold dose to wait for level. Specimens batched twice per day, (M-) and once per day weekends Method performed is a chemiluminescent microparticle immunoasssay on the [employer] i2000. The range is based on experience at [facility] and users should be aware that target concentrations vary widely depending on concomitant therapy, time post-transplant, and desired degree of immunosuppression. Performed By: #### T ACRO #### [facility] (DEFAULT) [address] [place] [address] CBC,PLATELETSon 09-05-2023 Hematocrit (Bld) [Volume fraction] 35.6 % Low 39.6-48.8 [facility] Comment on above: Performed By: #### T ACRO #### [facility] (DEFAULT) [address] [place] [address] Hemoglobin (Bld) [Mass/Vol] 11.4 g/dL Low 13.4-16.8 [facility] Comment on above: Performed By: #### T ACRO #### [facility] (DEFAULT) [address] [place] [address]42[address] MCV (RBC) [Entitic vol] 86.0 fL Normal 79.0-94.5 [facility] Comment on above: Performed By: #### T ACRO #### [facility] (DEFAULT) [address] [address] Mean Cell Hgb 27.5 pg Normal 26.1-33.3 [facility] Comment on above: Performed By: #### T ACRO #### [facility] (DEFAULT) [address] [place] [address] 07537 Mean Cell Hgb Conc 32.0 g/dL Normal 31.9-36.5 [facility] Comment on above: Performed By: #### T ACRO #### [facility] (DEFAULT) [address] [place] [address] Platelet mean volume (Bld) [Entitic vol] 10.0 fL Normal 8.7-12.3 [facility] Comment on above: Performed By: #### T ACRO #### [facility] (DEFAULT) [address] [address] Platelets (Bld) [#/Vol] 170 10*3/uL Normal 146-337 [facility] Comment on above: Performed By: #### T ACRO #### [facility] (DEFAULT) [address] [address] RBC (Bld) [#/Vol] 4.14 10*6/uL Low 4.38-5.83 [facility] Comment on above: Performed By: #### T ACRO #### [facility] (DEFAULT) [address] [place] [address] [place] [address] RBC Distribution 13.5 % Normal 10.9-14.3 [facility] Comment on above: Performed By: #### T ACRO #### [facility] (DEFAULT) [address] [place] [address] WBC (Bld) [#/Vol] 4.24 10*3/uL Normal 3.73-10.10 [facility] Comment on above: Performed By: #### T ACRO #### [facility] (DEFAULT) [address] [place] [address] Erythrocyte distribution width (RBC) [Ratio] 13.5 % 10.9 - 14.3 % [facility] Hematocrit (Bld) [Volume fraction] 35.6 % Low 39.6 - 48.8 % [facility] Hemoglobin (Bld) [Mass/Vol] 11.4 g/dL Low 13.4 - 16.8 g/dL [facility] Interpretation and review of laboratory results Abnormal [facility] MCH (RBC) [Entitic mass] 27.5 pg 26.1 - 33.3 pg [facility] MCHC (RBC) [Mass/Vol] 32.0 g/dL 31.9 - 36.5 g/dL [facility] MCV (RBC) [Entitic vol] 86.0 fL 79.0 - 94.5 fL [facility] Platelet mean volume (Bld) [Entitic vol] 10.0 fL 8.7 - 12.3 fL [facility] Platelets (Bld) [#/Vol] 170 10*3/uL 146 - 337 K/uL [facility] RBC (Bld) [#/Vol] 4.14 10*6/uL Low [facility] WBC (Bld) [#/Vol] 4.24 10*3/uL 3.73 - 10. 10 K/uL [facility] CHEM 7 (LYTES,BUN,CREA,GLUC) on 09-05-2023 Anion gap [Moles/Vol] 12 mmol/L Normal 7-17 [facility] Comment on above: Performed By: #### L EGN #### [facility] (DEFAULT) [address] [place] [address] Chloride [Moles/Vol] 107 mmol/L Normal 98-108 [facility] Comment on above: Performed By: #### L EGN #### [facility] (DEFAULT) [address] [place] [address] CO2 [Moles/Vol] 20 mmol/L Low 21-31 [facility] Comment on above: Performed By: #### L EGN #### [facility] (DEFAULT) [address] [place] [address]4637 Creatinine [Mass/Vol] 1.43 mg/dL High 0.70-1.30 [facility] Comment on above: Performed By: #### L EGN #### [facility] (DEFAULT) [address] [place] [address] 80947 GFR/1.73 sq M.predicted among non-blacks MDRD (S/P/Bld) [Vol rate/Area] 59 mL/min/{1.73_m2} Low >=60 [facility] Comment on above: Result Comment: Repo rted eGFR is based on the CKD-EPI 2020 equation using creatinine, age, and sex. Performed By: #### L EGN #### [facility] (DEFAULT) [address] [place] [address] Glucose [Mass/Vol] 111 mg/dL High 70-99 [facility] Comment on above: Performed By: #### L EGN #### [facility] (DEFAULT) [address] [place] [address] Osmolality [Osmolality] 286 mosm/kg Normal 278-305 [facility] Comment on above: Performed By: #### L EGN #### [facility] (DEFAULT) [address] [place] [address] Potassium [Moles/Vol] 4.2 mmol/L Normal 3.5-5.0 [facility] Comment on above: Performed By: #### L EGN #### [facility] (DEFAULT) [address] [place] [address] Sodium [Moles/Vol] 135 mmol/L Normal 135-145 [facility] Comment on above: Performed By: #### L EGN #### [facility] (DEFAULT) [address] [place] [address] Urea nitrogen [Mass/Vol] 18 mg/dL Normal 7-25 [facility] Comment on above: Performed By: #### L EGN #### [facility] (DEFAULT) [address] [place] [address] Urea nitrogen/Creatinine [Mass ratio] 13 mg/mg Normal [facility] Comment on above: Performed By: #### L EGN #### [facility] (DEFAULT) [address] [place] [address] Anion gap [Moles/Vol] 12 mmol/L 7 - 17 mmol/L [facility] Chloride [Moles/Vol] 107 mmol/L 98 - 10 8 mmol/L [facility] CO2 [Moles/Vol] 20 mmol/L Low 21 - 31 mmol/L [facility] Creatinine [Mass/Vol] 1.43 mg/dL High 0.70 - 1.30 mg/dL [facility] eGFR, CKD-EPI, Male 60 Low - PINF [facility] Glucose [Mass/Vol] 111 mg/dL High 70 - 99 mg/dL [facility] Osmolality Calc [Osmolality] 286 [facility] Potassium [Moles/Vol] 4.2 mmol/L 3.5 - 5.0 mmol/L [facility] Sodium [Moles/Vol] 135 mmol/L 135 - 145 mmol/L [facility] Urea nitrogen [Mass/Vol] 18 mg/dL 7 - 25 mg/dL [facility] Urea nitrogen/Creatinine [Mass ratio] 13 mg/mg [facility] CONTINUOUS CARDIAC MONITORIN G STRIPon 09-05-2023 [facility] HEPATIC FUNCTION PANELon Albumin [Mass/Vol] 2.8 g/dL Low 3.5-5.0 [facility] Comment on above: Performed By: #### L EGN #### [facility] (DEFAULT) [address] [place] [address] ALP [Catalytic activity/Vol] 103 U/L Normal 32-126 [facility] Comment on above: Performed By: #### L EGN #### [facility] (DEFAULT) [address] [place] [address] ALT [Catalytic activity/Vol] 26 U/L Normal 10-52 [facility] Comment on above: Performed By: #### L EGN #### [facility] (DEFAULT) [address] [place] [address] AST [Catalytic activity/Vol] 38 U/L Normal 10-39 [facility] Comment on above: Performed By: #### L EGN #### [facility] (DEFAULT) [address] [place] [address] Bilirubin [Mass/Vol] 0.9 mg/dL Normal <1.5 [facility] Comment on above: Performed By: #### L EGN #### [facility] (DEFAULT) [address] [place] [address] Bilirubin.indirect [Mass/Vol] 0.1 mg/dL Normal <0.3 [facility] Comment on above: Performed By: #### L EGN #### [facility] (DEFAULT) [address] [place] [address] Protein [Mass/Vol] 6.1 g/dL Low 6.4-8.3 [facility] Comment on above: Performed By: #### L EGN #### [facility] (DEFAULT) [address] [place] [address] Albumin [Mass/Vol] 2.8 g/dL Low 3.5 - 5.0 g/dL [facility] ALP [Catalytic activity/Vol] 103 U/L 32 - 126 U/L [facility] ALT [Catalytic activity/Vol] 26 U/L 10 - 52 U/L [facility] AST [Catalytic activity/Vol] 38 U/L 10 - 39 U/L [facility] Bilirubin [Mass/Vol] 0.9 mg/dL NINF - 1.5 mg/dL [facility] Bilirubin.direct [Mass/Vol] 0.1 mg/dL NINF - 0.3 mg/dL [facility] Protein [Mass/Vol] 6.1 g/dL Low 6.4 - 8.3 g/dL [facility] HISTOPLASMA ANTIGEN, FLUIDon 09-05-2023 FH SOURCE BAL RML [facility] Histo FLD interpretation Negative [facility] Histoplasma Antigen, FLUID Not detected ng/mL [facility] HISTOPLASMA CAPSULATUM/BLAST OMYCES SPECIES,PCR FLUIDon 09-05-2023 HISTO/BLASTO RESULT Negative Not Applicable [facility] Specimen source Nom (Unsp spec) BAL RML [facility] IMMUNOPHENOTYPING, TISSUE/FL UIDon 09-05-2023 BKR DX CODE Use Ordering [facility] Flow Interpretation See Comment [facility] Flow Interpreted by: Ysosi Perla MD, PhD [facility] MAGNESIUMon 09-05-2023 Magnesium [Mass/Vol] 1.7 mg/dL Normal 1.6-2.6 [facility] Comment on above: Performed By: #### L EGN #### [facility] (DEFAULT) [address] [place] [address] Interpretation and review of laboratory results Normal [facility] Magnesium [Mass/Vol] 1.7 mg/dL 1.6 - 2 .6 mg/dL [facility] No Panel Informationon 09-05 Interpretation and review of laboratory results Abnormal [facility] TACROLIMUS LEVEL, TROUGH (UT E DRUG LEVEL)Ordered By: Raymundo Mehta on 09-05-2023 Interpretation and review of laboratory results Normal [facility] Tacrolimus (Bld) [Mass/Vol] 5.3 ng/mL [facility] TACROLIMUS LEVEL, TROUGH (UT E DRUG LEVEL)on 09-05-2023 Tacrolimus, Trough 5.3 ng/mL Normal Bone Susana ow Transplant: 4.0-12.0, Therapeutic: 5.0-15.0 [facility] Comment on above: Order Comment: Pleas e draw at specified interval PRIOR to dose. Do not hold dose to wait for level. Specimens batched twice per day, (M-F) and once per day weekendsMethod performed is a chemiluminescent microparticle immunoasssay on the [employer] i2000.The range is based on experience at [facility] and users should be aware that target concentrations vary widely depending on concomitant therapy, time post-transplant, and desired degree of immunosuppression. Performed By: #### Y PNRP #### [facility] (DEFAULT) [address] [address] ARTERIAL BLOOD GAS (FULL PUENTE EL)on 09-04-2023 Base Excess -1.2 mmol/L Normal -3.0-3.0 [facility] Comment on above: Performed By: #### G YASMINE #### [facility] (DEFAULT) [address] [address] Carboxyhemoglobin 0.7 % Normal <=1.5 [facility] Comment on above: Performed By: #### G YASMINE #### [facility] (DEFAULT) [address] [address] Glucose [Mass/Vol] 159 mg/dL High 70-99 [facility] Comment on above: Performed By: #### G YASMINE #### [facility] (DEFAULT) [address] [place] [address] HCO3 (Bld) [Moles/Vol] 22 mmol/L Normal 22-28 [facility] Comment on above: Performed By: #### Vale UNDERWOOD #### [facility] (DEFAULT) [address] [place] [address] Hematocrit (Bld) [Volume fraction] 38.0 % Low 40.2-50.4 [facility] Comment on above: Performed By: #### Vale UNDERWOOD #### [facility] (DEFAULT) [address] [place] [address] Hemoglobin (Bld) [Mass/Vol] 12.6 g/dL Low 13.4-16.8 [facility] Comment on above: Performed By: #### Vale UNDERWOOD #### [facility] (DEFAULT) [address] [place] [address] Ionized Calcium, Whole Blood 4.79 mg/dL Normal 4.60-5.30 [facility] Comment on above: Performed By: ###Walter UNDERWOOD #### [facility] (DEFAULT) [address] [place] [address]83 Lactate, Whole Blood 2.0 mmol/L High 0.5-1.6 [facility] Comment on above: Performed By: ###Walter UNDERWOOD #### [facility] (DEFAULT) [address] [place] [address]93 Methemoglobin 0.0 % Normal <=1.5 [facility] Comment on above: Performed By: #### Vale UNDERWOOD #### [facility] (DEFAULT) [address] [place] [address] 86496 Oxyhemoglobin 91 % Low 94-98 [facility] Comment on above: Performed By: #### Vale UNDERWOOD #### [facility] (DEFAULT) [address] [place] [address] 11058 pCO2 30 mm Hg Low 32-48 [facility] Comment on above: Performed By: #### Vale UNDERWOOD #### [facility] (DEFAULT) [address] [place] [address] 72093 pH (Bld) 7.48 [pH] High 7.35-7.45 [facility] Comment on above: Performed By: #### Vale UNDERWOOD #### [facility] (DEFAULT) [address] [place] [address] 45800 pO2 62 mm Hg Low 83-108 [facility] Comment on above: Performed By: #### Vale UNDERWOOD #### [facility] (DEFAULT) [address] [place] [address] 95497 Potassium [Moles/Vol] 4.2 mmol/L Normal 3.5-5.0 [facility] Comment on above: Performed By: #### Vale UNDERWOOD #### [facility] (DEFAULT) [address] [place] [address] 15938 sO2 92 % Low 94-98 [facility] Comment on above: Performed By: #### Vale UNDERWOOD #### [facility] (DEFAULT) [address] [place] [address] 41414 Sodium [Moles/Vol] 130 mmol/L Low 135-145 [facility] Comment on above: Performed By: #### Vale UNDERWOOD #### [facility] (DEFAULT) [address] [place] [address] 35346 Specimen type Nom (Spec) Arterial Normal [facility] Comment on above: Performed By: ###Walter UNDERWOOD #### [facility] (DEFAULT) [address] [place] [address] 00347 Base excess Calc (Bld) [Moles/Vol] -1.2000 mmol/L -3.0 - 3.0 mmol/L [facility] Calcium.ionized (Bld) [Mass/Vol] 4.79 mg/dL 4.60 - 5.30 mg/dL [facility] Carboxyhemoglobin (Bld) [Mass fraction] 0.7 % NINF - 1.5 % [facility] CO2 (Bld) [Partial pressure] 30 mm[Hg] Low [facility] Glucose [Mass/Vol] 159 mg/dL High 70 - 99 mg/dL [facility] HCO3 (Bld) [Moles/Vol] 22 mmol/L 22 - 28 mmol/L [facility] Hematocrit (Bld) [Volume fraction] 38.0 % Low 40.2 - 50.4 % [facility] Hemoglobin (Bld) [Mass/Vol] 12.6 g/dL Low 13.4 - 16.8 g/dL [facility] Interpretation and review of laboratory results Abnormal [facility] Lactate [Moles/Vol] 2.0 mmol/L High 0.5 - 1. 6 mmol/L [facility] Methemoglobin (Bld) [Mass fraction] 0.0 % NINF - 1.5 % [facility] Oxygen (Bld) [Partial pressure] 62 mm[Hg] Low [facility] Oxygen saturation in Blood 92 % Low 94 - 98 % [facility] Oxyhemoglobin 91 % Low 94 - 98 % [facility] pH (Bld) 7.48 [pH] High 7.35 - 7.45 [facility] Potassium [Moles/Vol] 4.2 mmol/L 3.5 - 5.0 mmol/L [facility] Sodium [Moles/Vol] 130 mmol/L Low 135 - 145 mmol/L [facility] Specimen source Nom (Unsp spec) Arterial [facility] Bacteria identified Respirat ory culture Nom (Unsp spec)on 09-04-2023 Bacteria identified Cx Nom (Unsp spec) NO GROWTH DAY 2 OF [address] [facility] Microscopic observation Other stain Nom (Unsp spec) Cytocentrifuge preparation [facility] Microscopic observation Other stain Nom (Unsp spec) Neutrophils, Rare [facility] Microscopic observation Other stain Nom (Unsp spec) Red Blood Cells Present [facility] Microscopic observation Other stain Nom (Unsp spec) No organisms seen [facility] Bacteria identified Respirat ory culture Nom (Unsp spec)Ordered By: Jose Salgado on 09-04-2023 Bacteria identified Cx Nom (Unsp spec) NO GROWTH DAY 2 OF [address] [facility] Microscopic observation Other stain Nom (Unsp spec) Cytocentrifuge preparation [facility] Microscopic observation Other stain Nom (Unsp spec) Neutrophils, Moderate [facility] Microscopic observation Other stain Nom (Unsp spec) Red Blood Cells Present [facility] Microscopic observation Other stain Nom (Unsp spec) No organisms seen [facility] CBC,PLATELETSon 09-04-2023 Hematocrit (Bld) [Volume fraction] 38.7 % Low 39.6-48.8 [facility] Comment on above: Performed By: #### N ONGNNONFNA #### [facility] (DEFAULT) [address] [place] [address] 83310 Hemoglobin (Bld) [Mass/Vol] 12.3 g/dL Low 13.4-16.8 [facility] Comment on above: Performed By: #### N ONGNNONFNA #### [facility] (DEFAULT) [address] [place] [address] 60694 MCV (RBC) [Entitic vol] 87.8 fL Normal 79.0-94.5 [facility] Comment on above: Performed By: #### N ONGNNONFNA #### [facility] (DEFAULT) [address] [place] [address] 31714 Mean Cell Hgb 27.9 pg Normal 26.1-33.3 [facility] Comment on above: Performed By: #### N ONGNNONFNA #### [facility] (DEFAULT) [address] [place] [address] 89920 Mean Cell Hgb Conc 31.8 g/dL Low 31.9-36.5 [facility] Comment on above: Performed By: #### N ONGNNONFNA #### [facility] (DEFAULT) [address] [place] [address] 84888 Platelet mean volume (Bld) [Entitic vol] 9.8 fL Normal 8.7-12.3 [facility] Comment on above: Performed By: #### N ONGNNONFNA #### [facility] (DEFAULT) [address] [place] [address] 67716 Platelets (Bld) [#/Vol] 173 10*3/uL Normal 146-337 [facility] Comment on above: Performed By: #### N ONGNNONFNA #### [facility] (DEFAULT) [address] [place] [address] 11136 RBC (Bld) [#/Vol] 4.41 10*6/uL Normal 4.38-5.83 [facility] Comment on above: Performed By: #### N ONGNNONFNA #### [facility] (DEFAULT) [address] [place] [address] 34334 RBC Distribution 13.2 % Normal 10.9-14.3 [facility] Comment on above: Performed By: #### N ONGNNONFNA #### [facility] (DEFAULT) [address] [place] [address] 62846 WBC (Bld) [#/Vol] 4.57 10*3/uL Normal 3.73-10.10 [facility] Comment on above: Performed By: #### N ONGNNONFNA #### [facility] (DEFAULT) [address] [place] [address] 17528 Erythrocyte distribution width (RBC) [Ratio] 13.2 % 10.9 - 14.3 % [facility] Hematocrit (Bld) [Volume fraction] 38.7 % Low 39.6 - 48.8 % [facility] Hemoglobin (Bld) [Mass/Vol] 12.3 g/dL Low 13.4 - 16.8 g/dL [facility] Interpretation and review of laboratory results Abnormal [facility] MCH (RBC) [Entitic mass] 27.9 pg 26.1 - 33.3 pg [facility] MCHC (RBC) [Mass/Vol] 31.8 g/dL Low 31.9 - 36.5 g/dL [facility] MCV (RBC) [Entitic vol] 87.8 fL 79.0 - 94.5 fL [facility] Platelet mean volume (Bld) [Entitic vol] 9.8 fL 8.7 - 12.3 fL [facility] Platelets (Bld) [#/Vol] 173 10*3/uL 146 - 337 K/uL [facility] RBC (Bld) [#/Vol] 4.41 10*6/uL [facility] WBC (Bld) [#/Vol] 4.57 10*3/uL 3.73 - 10. 10 K/uL [facility] CHEM 7 (LYTES,BUN,CREA,GLUC) on 09-04-2023 Anion gap [Moles/Vol] 16 mmol/L Normal 7-17 [facility] Comment on above: Performed By: #### N ONGNAURELIANONA #### [facility] (DEFAULT) [address] [address] Chloride [Moles/Vol] 104 mmol/L Normal 98-108 [facility] Comment on above: Performed By: #### N ONGNGRAEMEFNA #### [facility] (DEFAULT) [address] [address] CO2 [Moles/Vol] 18 mmol/L Low 21-31 [facility] Comment on above: Performed By: #### N ONGNGRAEMEFNA #### [facility] (DEFAULT) [address] [address] Creatinine [Mass/Vol] 1.22 mg/dL Normal 0.70-1.30 [facility] Comment on above: Performed By: #### N ONGNNONFNA #### [facility] (DEFAULT) [address] [address] GFR/1.73 sq M.predicted among non-blacks MDRD (S/P/Bld) [Vol rate/Area] 71 mL/min/{1.73_m2} Normal >=60 [facility] Comment on above: Result Comment: Repo rted eGFR is based on the CKD-EPI 2020 equation using creatinine, age, and sex. Performed By: #### N ONGNGRAEMEFNA #### [facility] (DEFAULT) [address] [place] [address] 64472 Glucose [Mass/Vol] 124 mg/dL High 70-99 [facility] Comment on above: Performed By: #### N ONGNNONFNA #### [facility] (DEFAULT) [address] [place] [address] 84500 Osmolality [Osmolality] 284 mosm/kg Normal 278-305 [facility] Comment on above: Performed By: #### N ONGNGRAEMEFNA #### [facility] (DEFAULT) [address] [place] [address] 81401 Potassium [Moles/Vol] 3.9 mmol/L Normal 3.5-5.0 [facility] Comment on above: Performed By: #### N ONGNGRAEMEFNA #### [facility] (DEFAULT) [address] [place] [address] 26673 Sodium [Moles/Vol] 134 mmol/L Low 135-145 [facility] Comment on above: Performed By: #### N ONGNGRAEMEFNA #### [facility] (DEFAULT) [address] [place] [address] 77787 Urea nitrogen [Mass/Vol] 15 mg/dL Normal 7-25 [facility] Comment on above: Performed By: #### N ONGNNONFNA #### [facility] (DEFAULT) [address] [place] [address] 22029 Urea nitrogen/Creatinine [Mass ratio] 12 mg/mg Normal [facility] Comment on above: Performed By: #### N ONGNNONFNA #### [facility] (DEFAULT) [address] [place] [address] 03328 Anion gap [Moles/Vol] 16 mmol/L 7 - 17 mmol/L [facility] Chloride [Moles/Vol] 104 mmol/L 98 - 10 8 mmol/L [facility] CO2 [Moles/Vol] 18 mmol/L Low 21 - 31 mmol/L [facility] Creatinine [Mass/Vol] 1.22 mg/dL 0.70 - 1.30 mg/dL [facility] eGFR, CKD-EPI, Male 72 - PINF [facility] Glucose [Mass/Vol] 124 mg/dL High 70 - 99 mg/dL [facility] Osmolality Calc [Osmolality] 284 [facility] Potassium [Moles/Vol] 3.9 mmol/L 3.5 - 5.0 mmol/L [facility] Sodium [Moles/Vol] 134 mmol/L Low 135 - 145 mmol/L [facility] Urea nitrogen [Mass/Vol] 15 mg/dL 7 - 25 mg/dL [facility] Urea nitrogen/Creatinine [Mass ratio] 12 mg/mg [facility] CMV PCR,FLUIDS,URINE,EYE ETC on 09-04-2023 Specimen source Nom (Unsp spec) BAL LLL [facility] Specimen source Nom (Unsp spec) BAL RML [facility] HEPATIC FUNCTION PANELon Albumin [Mass/Vol] 3.0 g/dL Low 3.5-5.0 [facility] Comment on above: Performed By: #### N ONGNNONFNA #### [facility] (DEFAULT) [address] [place] [address] 65062 ALP [Catalytic activity/Vol] 112 U/L Normal 32-126 [facility] Comment on above: Performed By: #### N ONGNNONFNA #### [facility] (DEFAULT) [address] [place] [address] ALT [Catalytic activity/Vol] 22 U/L Normal 10-52 [facility] Comment on above: Performed By: #### N ONGNNONFNA #### [facility] (DEFAULT) [address] [place] [address] AST [Catalytic activity/Vol] 30 U/L Normal 10-39 [facility] Comment on above: Performed By: #### N ONGNNONFNA #### [facility] (DEFAULT) [address] [place] [address] 38766 Bilirubin [Mass/Vol] 1.2 mg/dL Normal <1.5 [facility] Comment on above: Performed By: #### N ONGNNONFNA #### [facility] (DEFAULT) [address] [place] [address] 19607 Bilirubin.indirect [Mass/Vol] 0.4 mg/dL High <0.3 [facility] Comment on above: Performed By: #### N ONGNNONFNA #### [facility] (DEFAULT) [address] [place] [address] 17333 Protein [Mass/Vol] 6.4 g/dL Normal 6.4-8.3 [facility] Comment on above: Performed By: #### N ONGNNONFNA #### [facility] (DEFAULT) [address] [place] [address] 08977 Albumin [Mass/Vol] 3.0 g/dL Low 3.5 - 5.0 g/dL [facility] ALP [Catalytic activity/Vol] 112 U/L 32 - 126 U/L [facility] ALT [Catalytic activity/Vol] 22 U/L 10 - 52 U/L [facility] AST [Catalytic activity/Vol] 30 U/L 10 - 39 U/L [facility] Bilirubin [Mass/Vol] 1.2 mg/dL NINF - 1.5 mg/dL [facility] Bilirubin.direct [Mass/Vol] 0.4 mg/dL High NINF - 0.3 mg/dL [facility] Protein [Mass/Vol] 6.4 g/dL 6.4 - 8.3 g/dL [facility] LEGIONELLA PCRon 09-04-2023 Legionella sp rRNA Probe Ql (Unsp spec) Negative Not Applicable [facility] Specimen source Nom (Unsp spec) BAL RML [facility] Laboratory - Microbiology an d Antimicrobial susceptibilityon 09-04-2023 CMV DNA ESTELITA+probe Ql (Unsp spec) Negative Negative [facility] MAGNESIUMon 09-04-2023 Magnesium [Mass/Vol] 1.4 mg/dL Low 1.6-2.6 [facility] Comment on above: Performed By: #### N ONGNNONFNA #### [facility] (DEFAULT) [address] [place] [address] 88433 Magnesium [Mass/Vol] 1.4 mg/dL Low 1.6 - 2 .6 mg/dL [facility] No Panel Informationon 09-04 Annotation comment [Interpretation] Narrative DNR [facility] PN Report Status DNR [facility] Pneumocystis jiroveci,PCR result Negative Not Applicable [facility] Interpretation and review of laboratory results Abnormal [facility] PNEUMOCYSTIS JIROVECI,PCRon 09-04-2023 Specimen source Nom (Unsp spec) BAL LLL [facility] Specimen source Nom (Unsp spec) BAL RML [facility] Portable XR Chest Viewson RADIOLOGY RADIOLOGY [facility] Radiology Study observation (narrative) [facility] Portable XR Chest ViewsOrder ed By: Joanie Nugent on 09-04-2023 [facility] Work Phone: TACROLIMUS LEVEL, TROUGH (UT E DRUG LEVEL)on 09-04-2023 Interpretation and review of laboratory results Abnormal [facility] Tacrolimus (Bld) [Mass/Vol] 3.6 ng/mL Low [facility] Tacrolimus, Trough 3.6 ng/mL Low Bone Susana ow Transplant: 4.0-12.0, Therapeutic: 5.0-15.0 [facility] Comment on above: Order Comment: Pleas e draw at specified interval PRIOR to dose. Do not hold dose to wait for level. Specimens batched twice per day, (M-F) and once per day weekends Method performed is a chemiluminescent microparticle immunoasssay on the [employer] i2000. The range is based on experience at [facility] and users should be aware that target concentrations vary widely depending on concomitant therapy, time post-transplant, and desired degree of immunosuppression. Performed By: #### T ACRO #### [facility] (DEFAULT) [address] [place], [place] [address] XR CHEST PORTABLEon 09-04-20 XR CHEST PORTABLE [...] the left lung likely infectious/inflammatory process. Normal [facility] ASPERGILLUS ANTIGEN, BALon 1 Galactomannan Ag IA Qn (Unsp spec) <0.500 [facility] Galactomannan Ag IA Qn (Unsp spec) <0.500 [facility] BAL CONSULTOrdered By: Noa Peralta on 09-03-2023 ALVEOLAR MACROPHAGES 32 % [facility] Work Phone: Bal comments Correlation with microbiology stains and cultures is recommended. [facility] Work Phone: Bal Diff Quik Stain Quality Check Acceptable [facility] Work Phone: BKR BAL INTERPRETATION Cellular specimen comprised of alveolar macrophages and small lymphocytes. No definitive microorganisms are observed. Moderate degenerative changes. [facility] Work Phone: BKR DX CODE Use Ordering [facility] Work Phone: Eosinophils Patterson stain Ql (Unsp spec) 0 % [facility] Work Phone: Lymphocytes/100 WBC (Bld) 57 % [facility] Work Phone: Neutrophils/100 WBC Manual cnt (Bronch spec) 11 % [facility] Work Phone: Pathologist review Jame (Unsp spec) [Interp] Leonardo Peralta MD [facility] Work Phone: [facility] Work Phone: BAL CONSULTon 09-03-2023 ALVEOLAR MACROPHAGES 33 % [facility] Bal comments Correlation with microbiology stains and cultures is recommended. Correlation with viral studies is recommended. [facility] Bal Diff Quik Stain Quality Check Acceptable [facility] BKR BAL INTERPRETATION Cellular specimen comprised of alveolar macrophages and small lymphocytes. No definitive microorganisms are observed. Rare degenerating cells with changes suggestive of viral cytopathic effect are noted. Moderate degenerative changes. [facility] BKR DX CODE Use Ordering [facility] Eosinophils Patterson stain Ql (Unsp spec) 0 % [facility] Lymphocytes/100 WBC (Bld) 49 % [facility] Neutrophils/100 WBC Manual cnt (Bronch spec) 18 % [facility] Pathologist review Jame (Unsp spec) [Interp] Leonardo Peralta MD [facility] BRONCHOSCOPYon 09-03-2023 LAB, [facility] CBC,PLATELETSon 09-03-2023 Hematocrit (Bld) [Volume fraction] 39.6 % Normal 39.6-48.8 [facility] Comment on above: Performed By: #### T ACRO #### [facility] (DEFAULT) [address] [address] Hemoglobin (Bld) [Mass/Vol] 12.8 g/dL Low 13.4-16.8 [facility] Comment on above: Performed By: #### T ACRO #### [facility] (DEFAULT) [address] [address] MCV (RBC) [Entitic vol] 85.9 fL Normal 79.0-94.5 [facility] Comment on above: Performed By: #### T ACRO #### [facility] (DEFAULT) [address] [address] Mean Cell Hgb 27.8 pg Normal 26.1-33.3 [facility] Comment on above: Performed By: #### T ACRO #### [facility] (DEFAULT) [address] [address] Mean Cell Hgb Conc 32.3 g/dL Normal 31.9-36.5 [facility] Comment on above: Performed By: #### T ACRO #### [facility] (DEFAULT) [address] [address] Platelet mean volume (Bld) [Entitic vol] 9.4 fL Normal 8.7-12.3 [facility] Comment on above: Performed By: #### T ACRO #### [facility] (DEFAULT) [address] [address] Platelets (Bld) [#/Vol] 222 10*3/uL Normal 146-337 [facility] Comment on above: Performed By: #### T ACRO #### [facility] (DEFAULT) [address] [address] RBC (Bld) [#/Vol] 4.61 10*6/uL Normal 4.38-5.83 [facility] Comment on above: Performed By: #### T ACRO #### [facility] (DEFAULT) [address] [address] RBC Distribution 13.4 % Normal 10.9-14.3 [facility] Comment on above: Performed By: #### T ACRO #### [facility] (DEFAULT) [address] [place] [address] WBC (Bld) [#/Vol] 4.36 10*3/uL Normal 3.73-10.10 [facility] Comment on above: Performed By: #### T ACRO #### [facility] (DEFAULT) [address] [place] [address] Erythrocyte distribution width (RBC) [Ratio] 13.4 % 10.9 - 14.3 % [facility] Hematocrit (Bld) [Volume fraction] 39.6 % 39.6 - 48.8 % [facility] Hemoglobin (Bld) [Mass/Vol] 12.8 g/dL Low 13.4 - 16.8 g/dL [facility] Interpretation and review of laboratory results Abnormal [facility] MCH (RBC) [Entitic mass] 27.8 pg 26.1 - 33.3 pg [facility] MCHC (RBC) [Mass/Vol] 32.3 g/dL 31.9 - 36.5 g/dL [facility] MCV (RBC) [Entitic vol] 85.9 fL 79.0 - 94.5 fL [facility] Platelet mean volume (Bld) [Entitic vol] 9.4 fL 8.7 - 12.3 fL [facility] Platelets (Bld) [#/Vol] 222 10*3/uL 146 - 337 K/uL [facility] RBC (Bld) [#/Vol] 4.61 10*6/uL [facility] WBC (Bld) [#/Vol] 4.36 10*3/uL 3.73 - 10. 10 K/uL [facility] CHEM 7 (LYTES,BUN,CREA,GLUC) on 09-03-2023 Anion gap [Moles/Vol] 12 mmol/L Normal 7-17 [facility] Comment on above: Performed By: #### L EGN #### [facility] (DEFAULT) [address] [place] [address] Chloride [Moles/Vol] 104 mmol/L Normal 98-108 [facility] Comment on above: Performed By: #### L EGN #### [facility] (DEFAULT) [address] [place] [address] CO2 [Moles/Vol] 24 mmol/L Normal 21-31 [facility] Comment on above: Performed By: #### L EGN #### [facility] (DEFAULT) [address] [place] [address] Creatinine [Mass/Vol] 1.20 mg/dL Normal 0.70-1.30 [facility] Comment on above: Performed By: #### L EGN #### [facility] (DEFAULT) [address] [address] GFR/1.73 sq M.predicted among non-blacks MDRD (S/P/Bld) [Vol rate/Area] 73 mL/min/{1.73_m2} Normal >=60 [facility] Comment on above: Result Comment: Repo rted eGFR is based on the CKD-EPI 2020 equation using creatinine, age, and sex. Performed By: #### L EGN #### [facility] (DEFAULT) [address] [address] Glucose [Mass/Vol] 112 mg/dL High 70-99 [facility] Comment on above: Performed By: #### L EGN #### [facility] (DEFAULT) [address] [address] Osmolality [Osmolality] 288 mosm/kg Normal 278-305 [facility] Comment on above: Performed By: #### L EGN #### [facility] (DEFAULT) [address] [address] Potassium [Moles/Vol] 4.1 mmol/L Normal 3.5-5.0 [facility] Comment on above: Performed By: #### L EGN #### [facility] (DEFAULT) [address] [place] [address] Sodium [Moles/Vol] 136 mmol/L Normal 135-145 [facility] Comment on above: Performed By: #### L EGN #### [facility] (DEFAULT) [address] [place] [address] Urea nitrogen [Mass/Vol] 17 mg/dL Normal 7-25 [facility] Comment on above: Performed By: #### L EGN #### [facility] (DEFAULT) [address] [place] [address] Urea nitrogen/Creatinine [Mass ratio] 14 mg/mg Normal [facility] Comment on above: Performed By: #### L EGN #### [facility] (DEFAULT) [address] [place] [address] Anion gap [Moles/Vol] 12 mmol/L 7 - 17 mmol/L [facility] [facility] Chloride [Moles/Vol] 104 mmol/L 98 - 10 8 mmol/L [facility] CO2 [Moles/Vol] 24 mmol/L 21 - 31 mmol/L [facility] Creatinine [Mass/Vol] 1.20 mg/dL 0.70 - 1.30 mg/dL [facility] eGFR, CKD-EPI, Male 74 - PINF [facility] Glucose [Mass/Vol] 112 mg/dL High 70 - 99 mg/dL [facility] Osmolality Calc [Osmolality] 288 [facility] Potassium [Moles/Vol] 4.1 mmol/L 3.5 - 5.0 mmol/L [facility] Sodium [Moles/Vol] 136 mmol/L 135 - 145 mmol/L [facility] Urea nitrogen [Mass/Vol] 17 mg/dL 7 - 25 mg/dL [facility] Urea nitrogen/Creatinine [Mass ratio] 14 mg/mg [facility] CYTOLOGY, NON-GYNOrdered By: Sherice Jimenez on 09-03-2023 CYTOLOGIC DIAGNOSIS k0tmaGLfUEDiiLLjRGRgW7u azpEmTHUlpVRjJ2YcdgxnCT oqOA7sEU5dpQqxuXVecAZhO HWkVeTng5jbs064kLDzu2ke WSNVedahzOl6q8qbSLXDkL3 vg3z4oD22QDHofI7khENuMN rrovLjCVtvzkRjxhQqKnv5D AR2jPzuTsjqyIG3fUUeaUM2 HDwgp8XkiTpytTfpKQB2JJC pDgehLWxutAM3dYUrqEbfwQ WpWD7qe8fikPF1rfKbMKN9n HigpJF2fWdcgkrde7mrwCF1 gJF9NXcbcHX1CEnkPlMqJ5g vUWQaoH8gG44iR7nuZROuvO atFAcuLJLmeTJ3FER5SPTpp 1xsZXZlbHRleHRcJzAxXCdi Zfh6j7jkHOMonB10gEWuziN 2cJtlBImuzMJ6BG14YBknl3 ChYMQwcAukKPHrrD0yGhTvR GxldmVsbmZjbjIzXGxldmVs jsAvWKdmnvSxg0PbgbMitKR 5CJsokvKulEM6pUyvHRLrR0 T4W633AOyslzShclTuEbWea pu6CXUseRenrKxmyQzsafUc BGwhwlLzfwEfXaDwvXJ9PCt oZhQvSzAwhYK0LTdzGmHgeF G9CKznhIVyePB0ERocxGS0A Tl7XPg6XVwwHHjaPte6wPhv eZB7QBwgdU5rXJYgE06iIeQ 4d6bgqRO3pDL5RNplvDG9PV fbVlRxQ3qeYJNtxY0pO18bH 2ywBAEnsBuhGApjLQMegCK6 TJD6SNKwt3pcULVkfRXxzBK dPxQqZSssJck7e1oiBKQtxR 49pCJsxtI9hHfcMR11ULoqp 7WqHHRgiWnjVADbzC7iVxFn XGxldmVsbmZjbjIzXGxldmV olrEyIGlcenHvo6QvadGwfW Y9MHgilrLwxNA7eHzkUSQaS 7T9X525CLaxumZcvwCpUuWy brp1GYGuaTycrVtytPohgeX fSTecpiYxxoToXcAfpPC4ML ilBsKlSiWxeSQ4KJarHnJwr LV9AYoffMIplTP8DTiqhBN0 TMd2VSg4YLxrHYtpXdt8kDe ayQJ7IWcerQ0tKIVcP96mTv E6e9joeKT4qQW2UYgaoLE9K YylUxUvQ5rxBPWwnA1rS22q C1tvZLVzjCgwMLvhMKTmpDP 6PLF9ENOtu8ouPITvhQQkxL BbWpApONfbRep7i7blPOCfl V98mNYrsuQ2kQhkSM72NRfw y3OmRCAdbNxsSOGglF3eXkN zXGxldmVsbmZjbjIzXGxldm WzgnWiKAepteGpb1DjvcCmx QO3IMfidmDibJR7dVzpIQWm L0K4E959GCjycxKboyYmIkK jnva7ZRTetYvjoPldoLyxpu QqUTtjwiHxztDjWsYumSF2A PsqTzHfZrFmqFE7YToqTnOb wZE8KXwoeEWqoYE0MKwkoQT 2CDs9FQr5IYjhTVtrCau3iH bkeOL3MSdugT9tHZNxT30tT pO4iL32ZJszsOmfdZ11HTQi qFNncAJgzPS9GRcxyOwxkC8 1RAUxtSElKCcii3NdIBUnQn V1GQJ6TEBgqBfshF26ENYmg HOgS188xkReGMaoIO01PXDg cGVydzEyMjQwXHBhcGVyaDE 6HCCwWO5dvbldYDivVWuuOM CulpV3KIBibYHyQ9DyJPMnP P4giaxcEBJ3UWaiVNYeHDA1 DoPnIYTvb0Vxkhb0JsDsmZk 1r8gqTKTjFERzlImhe8fcYB H4TMDyhPHrJ8prkF9bORQfB F3tjumck1yaXFvbUQibCUGh rWA7xiY7NUQrzCThZ2StzB6 rXQUhNAHeymDxfTqvtS5dHy jxnmJsCJVtCMFNMlXZLr5SZ 9iCPFlCFS4BRXRxGWTBQOfI COUZUIQSLVrBO8XUUDmOBlF oCERdPQUpB9fTG1bHI6gyXx erCrErEJduAQZrWsNcZ2TnX SJsowyePUAlFYNRQS8KNTPE ROSOHh0AXJJ5WZXbvdnmwNT 2UZlspyHksDv2pLSusXlxgL 5cYlxmczIyXGNmMSBObyBNY ZlpI86dpnEkB9FmrAZoNEXk WNvbWW79vRAoGZRvdFTsTSt 9tD5xIUqxpAaxkeIReJRdqE 1lblxiMFxjZjBccGFyXGxpM FxsczBccGFyfQ== [facility] Work Phone: Case Report [facility] Work Phone: Clinical History s6yceVRiUYLudICcCZXn M1x paeSnLQKdpPSnZ9QttngeBW ouPQ6bFN8skJeveRZfzLYlS LGgDoYax6iyk512lWFcz2sg QDKYijdslJn8aEalX21kq3T 6RhmhW4hyCBLoFOmwTXVgLO bghHVbRKe9ZOAltPVpsoMtV qDnBPGfvEEuaFA6HGNiSP3s iyykPSvcLBwuIBKfpvF9ZZC acDNwO4VlXQToBP1xhfruML O0HHkoGBZjPUA3BvVeQGYuy 9Pcpru9AjSavGq3o7irMRXw ZDHelKznv4qgPAN9JBTwxHN iM5niyN8tQCYeEN5pxgglm1 naJNqzRQvuMEHymFV5zpR4G GFntBAxN9OaqB5cCCQgDSCf huQlbAwwdB2eXuEsWGghTrA gUmVuYWwgdHJhbnNwbGFudC 9wZEWuws0= [facility] Work Phone: For Immediate Release to Patient's [facility]? Yes Yes [facility] Work Phone: Gross Description a7uoyYNoKBDlfFYvSVJe M1x zswFmXAUqlAFnA0WrqjprGY txUH8sLE6atHawbXTctRQwN VVaZpBtp0xec676uALet6nc DUCSczykrYy3lYqmC30la6M 3AkupY06muMJsOVZ7NVGeLZ ExyNYeDQZyZKS2GMFrcZWoW 5tiUANqEU1jneguDTokARzz DGHawBI6NXOyiWBzH8VdRWD hSWedLTCidfa6XmClZw8nrI VyeTcyMFxwYXJkXHBsYWluX GZzMjAgTExMIEJBTFxwYXIg FVFcoDXkBEl8BZTuqU7gtCM zfbNzhHGusW9ezEvxSKyhUH IgMSBUUCBzbGlkZSBQYXAgc 8SzjN0zpAMlLMZjmtUpjRCr XHBhcn0= [facility] Work Phone: [facility] Work Phone: HEPATIC FUNCTION PANELon Albumin [Mass/Vol] 3.2 g/dL Low 3.5-5.0 [facility] Comment on above: Performed By: #### L EGN #### [facility] (DEFAULT) [address] [place] [address] ALP [Catalytic activity/Vol] 118 U/L Normal 32-126 [facility] Comment on above: Performed By: #### L EGN #### [facility] (DEFAULT) [address] [place] [address] ALT [Catalytic activity/Vol] 25 U/L Normal 10-52 [facility] Comment on above: Performed By: #### L EGN #### [facility] (DEFAULT) [address] [place] [address]647 AST [Catalytic activity/Vol] 32 U/L Normal 10-39 [facility] Comment on above: Performed By: #### L EGN #### [facility] (DEFAULT) [address] [place] [address]85 Bilirubin [Mass/Vol] 1.0 mg/dL Normal <1.5 [facility] Comment on above: Performed By: #### L EGN #### [facility] (DEFAULT) [address] [place] [address] Bilirubin.indirect [Mass/Vol] 0.3 mg/dL High <0.3 [facility] Comment on above: Performed By: #### L EGN #### [facility] (DEFAULT) [address] [place] [address]65[address] Protein [Mass/Vol] 6.5 g/dL Normal 6.4-8.3 [facility] Comment on above: Performed By: #### L EGN #### [facility] (DEFAULT) [address] [place] [address]68 Albumin [Mass/Vol] 3.2 g/dL Low 3.5 - 5.0 g/dL [facility] ALP [Catalytic activity/Vol] 118 U/L 32 - 126 U/L [facility] ALT [Catalytic activity/Vol] 25 U/L 10 - 52 U/L [facility] AST [Catalytic activity/Vol] 32 U/L 10 - 39 U/L [facility] Bilirubin [Mass/Vol] 1.0 mg/dL NINF - 1.5 mg/dL [facility] Bilirubin.direct [Mass/Vol] 0.3 mg/dL High NINF - 0.3 mg/dL [facility] Protein [Mass/Vol] 6.5 g/dL 6.4 - 8.3 g/dL [facility] HISTOPLASMA AND BLASTOMYCES ANTIGEN, ENZYME IMMUNOASSAY, SERMon 09-03-2023 Histoplasma/Blastomyc es Ag Result Detected Critically abnormal Not Detected [facility] Histoplasma/Blastomyc es Ag Value 5.3 ng/mL [facility] Interpretation and review of laboratory results Abnormal [facility] IMMUNOPHENOTYPING, TISSUE/FL UIDon 09-03-2023 BKR DX CODE Use Ordering Normal [facility] Comment on above: Order Comment: Pleas e draw at specified interval PRIOR to dose. Do not hold dose to wait for level. Specimens batched twice per day, (M-F) and once per day weekends Method performed is a chemiluminescent microparticle immunoasssay on the [employer] i2000. The range is based on experience at [facility] and users should be aware that target concentrations vary widely depending on concomitant therapy, time post-transplant, and desired degree of immunosuppression. Performed By: #### T ACRO #### [facility] (DEFAULT) [address] [place] [address] Flow Interpretation See Comment Normal [facility] Comment on above: Order Comment: Pleas e draw at specified interval PRIOR to dose. Do not hold dose to wait for level. Specimens batched twice per day, (M-F) and once per day weekends Method performed is a chemiluminescent microparticle immunoasssay on the [employer] i2000. The range is based on experience at [facility] and users should be aware that target concentrations vary widely depending on concomitant therapy, time post-transplant, and desired degree of immunosuppression. Performed By: #### T ACRO #### [facility] (DEFAULT) [address] [place] [address] Flow Interpreted by: Yossi Perla MD, PhD Normal [facility] Comment on above: Order Comment: Pleas e draw at specified interval PRIOR to dose. Do not hold dose to wait for level. Specimens batched twice per day, (M-F) and once per day weekends Method performed is a chemiluminescent microparticle immunoasssay on the [employer] i2000. The range is based on experience at [facility] and users should be aware that target concentrations vary widely depending on concomitant therapy, time post-transplant, and desired degree of immunosuppression. Performed By: #### T ACRO #### [facility] (DEFAULT) [address] [place] [address] MAGNESIUMon 09-03-2023 Magnesium [Mass/Vol] 1.6 mg/dL Normal 1.6-2.6 [facility] Comment on above: Performed By: #### T ACRO #### [facility] (DEFAULT) [address] [place] [address] Interpretation and review of laboratory results Normal [facility] Magnesium [Mass/Vol] 1.6 mg/dL 1.6 - 2 .6 mg/dL [facility] No Panel Informationon 09-03 Interpretation and review of laboratory results Abnormal [facility] PARVOVIRUS (B19) DNA, PCR, B LOODon 09-03-2023 PARVOVIRUS B19 BY RAPID PCR Not detected Not Detected [facility] UT SPEC SOURCE Whole Blood [facility] Portable XR Chest Viewson RADIOLOGY RADIOLOGY [facility] Radiology Study observation (narrative) [facility] Portable XR Chest ViewsOrder ed By: Lester Grove on 09-03-2023 [facility] Work Phone: XR CHEST PORTABLEon 09-03-20 XR [...] have reviewed and approved this report. Normal [facility] ACID FAST CULTUREon 09-02-20 23 Bacteria identified Cx Nom (Unsp spec) NO GROWTH DAY 42 OF 42 Normal [facility] Comment on above: Performed By: #### H EMOGC #### [facility] (DEFAULT) [address] [address] Fluorochrome Stain No acid Fast Bacillu s Seen Normal [facility] Comment on above: Performed By: #### H EMOGC #### [facility] (DEFAULT) [address] [address] Bacteria identified Cx Nom (Unsp spec) NO GROWTH DAY 42 OF 42 Normal [facility] Comment on above: Order Comment: Pleas e draw at specified interval PRIOR to dose. Do not hold dose to wait for level. Specimens batched twice per day, (M-F) and once per day weekends Method performed is a chemiluminescent microparticle immunoasssay on the [employer] i2000. The range is based on experience at [facility] and users should be aware that target concentrations vary widely depending on concomitant therapy, time post-transplant, and desired degree of immunosuppression. Performed By: #### T ACRO #### [facility] (DEFAULT) [address] [address] Fluorochrome Stain No acid Fast Bacillu s Seen Normal [facility] Comment on above: Order Comment: Pleas e draw at specified interval PRIOR to dose. Do not hold dose to wait for level. Specimens batched twice per day, (M-F) and once per day weekends Method performed is a chemiluminescent microparticle immunoasssay on the [employer] i2000. The range is based on experience at [facility] and users should be aware that target concentrations vary widely depending on concomitant therapy, time post-transplant, and desired degree of immunosuppression. Performed By: #### T ACRO #### [facility] (DEFAULT) [address] [address] ASPERGILLUS (GALACTOMANNAN), ANTIGENon 09-02-2023 Galactomannan Ag IA Qn <0.500 NINF [facility] ASPERGILLUS ANTIGEN, BALon 1 Aspergillus Galactomannan Antigen, BAL <0.500 Normal <0.5 [facility] Comment on above: Result Comment: ADDITIONAL INFORMATION This is a qualitative test and the resulted index value is not indicative of disease severity. Serial testing is recommended for patients at high risk for invasive aspergillosis. This assay was performed using the FDA-cleared [employer] Platelia Aspergillus Galactomannan EIA. Test Performed by: [place] [address] Store Operations Manager: Rosendo Bose M.D. Ph.D.; CLIA# [id number] Performed By: #### T ACRO #### [facility] (DEFAULT) [address] [place] [address] Aspergillus Galactomannan Antigen, BAL <0.500 Normal <0.5 [facility] Comment on above: Order Comment: Pleas e draw at specified interval PRIOR to dose. Do not hold dose to wait for level. Specimens batched twice per day, (M-F) and once per day weekends Method performed is a chemiluminescent microparticle immunoasssay on the [employer] i2000. The range is based on experience [...] This assay was performed using the FDA-cleared [employer] Platelia Aspergillus Galactomannan EIA. Test Performed by: [facility] [address] [place] [address] Store Operations Manager: Rosendo Bose M.D. Ph.D.; CLIA# [id number] Performed By: #### T ACRO #### [facility] (DEFAULT) [address] [place] [address] ATYPICAL BACTERIAL PNEUMONIA ,PCROrdered By: Shari Contreras on 09-02-2023 B. parapertussis DNA ESTELITA+probe Ql (Unsp spec) Not detected Not Detected [facility] B. pertussis DNA ESTELITA+probe Ql (Unsp spec) Not detected Not Detected [facility] C. pneumoniae DNA ESTELITA+probe Ql (Unsp spec) Not detected Not Detected [facility] Interpretation and review of laboratory results Normal [facility] M. pneumoniae DNA ESTELITA+probe Ql (Unsp spec) Not detected Not Detected [facility] ATYPICAL BACTERIAL PNEUMONIA ,PCRon 09-02-2023 Bordetella Parapertussis Not detected Normal Not Detected [facility] Comment on above: Order Comment: [...] by [facility]. It has not been cleared or approved by the FDA. The laboratory is required under CLIA as qualified to perform high-complexity testing. This test is used for clinical purposes. It should not be regarded as investigational or for research. Performed By: #### [facility] #### [facility] (DEFAULT) [address] [address] Bordetella Pertussis Not detected Normal Not Detected [facility] Comment on above: Order Comment: [...] by [facility]. It has not been cleared or approved by the FDA. The laboratory is required under CLIA as qualified to perform high-complexity testing. This test is used for clinical purposes. It should not be regarded as investigational or for research. Performed By: #### [facility] #### [facility] (DEFAULT) [address] [address] Chlamydia Pneumoniae Not detected Normal Not Detected [facility] Comment on above: Order Comment: [...] by [facility]. It has not been cleared or approved by the FDA. The laboratory is required under CLIA as qualified to perform high-complexity testing. This test is used for clinical purposes. It should not be regarded as investigational or for research. Performed By: #### [facility] #### [facility] (DEFAULT) [address] [address] Mycoplasma Pneumoniae Not detected Normal Not Detected [facility] Comment on above: Order Comment: [...] by [facility]. It has not been cleared or approved by the FDA. The laboratory is required under CLIA as qualified to perform high-complexity testing. This test is used for clinical purposes. It should not be regarded as investigational or for research. Performed By: #### H EMOGC #### [facility] (DEFAULT) [address] [address] BAL CONSULTon 09-02-2023 ALVEOLAR MACROPHAGES 33 % Normal [facility] Comment on above: Order Comment: BAL c onsultIf > 15% lymphocytes - please send for flow. Performed By: #### H EMOGC #### [facility] (DEFAULT) [address] [address] Bal comments Correlation with microbiology stains and cultures is recommended. Correlation with viral studies is recommended. Normal [facility] Comment on above: Order Comment: BAL c onsultIf > 15% lymphocytes - please send for flow. Performed By: #### H EMOGC #### [facility] (DEFAULT) [address] [address] Bal Diff Quik Stain Quality Check Acceptable Normal [facility] Comment on above: Order Comment: BAL c onsultIf > 15% lymphocytes - please send for flow. Performed By: #### H EMOGC #### [facility] (DEFAULT) [address] [address] Bal Reviewed By: Leonardo Peralta MD [facility] Comment on above: Order Comment: BAL c onsultIf > 15% lymphocytes - please send for flow. Performed By: #### H EMOGC #### [facility] (DEFAULT) [address] [address] BKR BAL INTERPRETATION Cellular specimen comprised of alveolar macrophages and small lymphocytes. No definitive microorganisms are observed. Rare degenerating cells with changes suggestive of viral cytopathic effect are noted. Moderate degenerative changes. Normal [facility] Comment on above: Order Comment: BAL c onsultIf > 15% lymphocytes - please send for flow. Performed By: #### H EMOGC #### [facility] (DEFAULT) [address] [place] [address] BKR DX CODE Use Ordering Normal [facility] Comment on above: Order Comment: BAL c onsultIf > 15% lymphocytes - please send for flow. Performed By: #### H EMOGC #### [facility] (DEFAULT) [address] [place] [address] Eosinophils/100 WBC (Bld) 0 % Normal [facility] Comment on above: Order Comment: BAL c onsultIf > 15% lymphocytes - please send for flow. Performed By: #### H EMOGC #### [facility] (DEFAULT) [address] [place] [address] Lymphocytes/100 WBC (Bld) 49 % Normal [facility] Comment on above: Order Comment: BAL c onsultIf > 15% lymphocytes - please send for flow. Performed By: #### H EMOGC #### [facility] (DEFAULT) [address] [place] [address] Neutrophils/100 WBC (Bld) 18 % Normal [facility] Comment on above: Order Comment: BAL c onsultIf > 15% lymphocytes - please send for flow. Performed By: #### H EMOGC #### [facility] (DEFAULT) [address] [place] [address] ALVEOLAR MACROPHAGES 32 % Normal [facility] Comment on above: Order Comment: BAL c onsult for cell differential and pathologist review. Please do flow cytometry if > 12% lymphocytes Performed By: #### H EMOGC #### [facility] (DEFAULT) [address] [place] [address] Bal comments Correlation with microbiology stains and cultures is recommended. Normal [facility] Comment on above: Order Comment: BAL c onsult for cell differential and pathologist review. Please do flow cytometry if > 12% lymphocytes Performed By: #### H EMOGC #### [facility] (DEFAULT) [address] [address] Bal Diff Quik Stain Quality Check Acceptable [facility] Comment on above: Order Comment: BAL c onsult for cell differential and pathologist review. Please do flow cytometry if > 12% lymphocytes Performed By: #### H EMOGC #### [facility] (DEFAULT) [address] [address] Bal Reviewed By: Leonardo Peralta MD [facility] Comment on above: Order Comment: BAL c onsult for cell differential and pathologist review. Please do flow cytometry if > 12% lymphocytes Performed By: #### H EMOGC #### [facility] (DEFAULT) [address] [address] BKR BAL INTERPRETATION Cellular specimen comprised of alveolar macrophages and small lymphocytes. No definitive microorganisms are observed. Moderate degenerative changes. [facility] Comment on above: Order Comment: BAL c onsult for cell differential and pathologist review. Please do flow cytometry if > 12% lymphocytes Performed By: #### H EMOGC #### [facility] (DEFAULT) [address] [address] BKR DX CODE Use Ordering Normal [facility] Comment on above: Order Comment: BAL c onsult for cell differential and pathologist review. Please do flow cytometry if > 12% lymphocytes Performed By: #### H EMOGC #### [facility] (DEFAULT) [address] [address] Eosinophils/100 WBC (Bld) 0 % [facility] Comment on above: Order Comment: BAL c onsult for cell differential and pathologist review. Please do flow cytometry if > 12% lymphocytes Performed By: #### H EMOGC #### [facility] (DEFAULT) [address] [address] Lymphocytes/100 WBC (Bld) 57 % Normal [facility] Comment on above: Order Comment: BAL c onsult for cell differential and pathologist review. Please do flow cytometry if > 12% lymphocytes Performed By: #### H EMOGC #### [facility] (DEFAULT) [address] [place] [address] Neutrophils/100 WBC (Bld) 11 % Normal [facility] Comment on above: Order Comment: CARRIE ro for cell differential and pathologist review. Please do flow cytometry if > 12% lymphocytes Performed By: #### H EMOGC #### [facility] (DEFAULT) [address] [place] [address] BRONCHOSCOPYon 09-02-2023 Radiology Study observation (narrative) [facility] Bacteria identified Cx Nom ( Bld)on 09-02-2023 Bacteria identified Cx Nom (Unsp spec) NO GROWTH DAY 5 OF 5 [facility] CBC,PLATELETSon 09-02-2023 Hematocrit (Bld) [Volume fraction] 39.9 % Normal 39.6-48.8 [facility] Comment on above: Performed By: #### H EMOGC #### [facility] (DEFAULT) [address] [place] [address] Hemoglobin (Bld) [Mass/Vol] 12.9 g/dL Low 13.4-16.8 [facility] Comment on above: Performed By: #### H EMOGC #### [facility] (DEFAULT) [address] [address] MCV (RBC) [Entitic vol] 86.4 fL Normal 79.0-94.5 [facility] Comment on above: Performed By: #### H EMOGC #### [facility] (DEFAULT) [address] [place] [address] Mean Cell Hgb 27.9 pg Normal 26.1-33.3 [facility] Comment on above: Performed By: #### H EMOGC #### [facility] (DEFAULT) [address] [address] Mean Cell Hgb Conc 32.3 g/dL Normal 31.9-36.5 [facility] Comment on above: Performed By: #### H EMOGC #### [facility] (DEFAULT) [address] [place] [address] Platelet mean volume (Bld) [Entitic vol] 9.5 fL Normal 8.7-12.3 [facility] Comment on above: Performed By: #### H EMOGC #### [facility] (DEFAULT) [address] [place] [address] Platelets (Bld) [#/Vol] 210 10*3/uL Normal 146-337 [facility] Comment on above: Performed By: #### H EMOGC #### [facility] (DEFAULT) [address] [place] [address] RBC (Bld) [#/Vol] 4.62 10*6/uL Normal 4.38-5.83 [facility] Comment on above: Performed By: #### H EMO #### [facility] (DEFAULT) [address] [place] [address]00 RBC Distribution 13.2 % Normal 10.9-14.3 [facility] Comment on above: Performed By: #### H EMO #### [facility] (DEFAULT) [address] [place] [address]005 WBC (Bld) [#/Vol] 4.12 10*3/uL Normal 3.73-10.10 [facility] Comment on above: Performed By: #### H EMOGC #### [facility] (DEFAULT) [address] [place] [address] Erythrocyte distribution width (RBC) [Ratio] 13.2 % 10.9 - 14.3 % [facility] Hematocrit (Bld) [Volume fraction] 39.9 % 39.6 - 48.8 % [facility] Hemoglobin (Bld) [Mass/Vol] 12.9 g/dL Low 13.4 - 16.8 g/dL [facility] Interpretation and review of laboratory results Abnormal [facility] MCH (RBC) [Entitic mass] 27.9 pg 26.1 - 33.3 pg [facility] MCHC (RBC) [Mass/Vol] 32.3 g/dL 31.9 - 36.5 g/dL [facility] MCV (RBC) [Entitic vol] 86.4 fL 79.0 - 94.5 fL [facility] Platelet mean volume (Bld) [Entitic vol] 9.5 fL 8.7 - 12.3 fL [facility] Platelets (Bld) [#/Vol] 210 10*3/uL 146 - 337 K/uL [facility] RBC (Bld) [#/Vol] 4.62 10*6/uL [facility] WBC (Bld) [#/Vol] 4.12 10*3/uL 3.73 - 10. 10 K/uL [facility] CHEM 7 (LYTES,BUN,CREA,GLUC) on 09-02-2023 Anion gap [Moles/Vol] 13 mmol/L Normal 7-17 [facility] Comment on above: Performed By: #### Y PNRP #### [facility] (DEFAULT) [address] [address] Chloride [Moles/Vol] 105 mmol/L Normal 98-108 [facility] Comment on above: Performed By: #### Y PNRP #### [facility] (DEFAULT) [address] [place] [address] CO2 [Moles/Vol] 22 mmol/L Normal 21-31 [facility] Comment on above: Performed By: #### Y PNRP #### [facility] (DEFAULT) [address] [address] Creatinine [Mass/Vol] 1.25 mg/dL Normal 0.70-1.30 [facility] Comment on above: Performed By: #### Y PNRP #### [facility] (DEFAULT) [address] [address] GFR/1.73 sq M.predicted among non-blacks MDRD (S/P/Bld) [Vol rate/Area] 69 mL/min/{1.73_m2} Normal >=60 [facility] Comment on above: Result Comment: Repo rted eGFR is based on the CKD-EPI 2020 equation using creatinine, age, and sex. Performed By: #### Y PNRP #### [facility] (DEFAULT) [address] [place] [address] Glucose [Mass/Vol] 105 mg/dL High 70-99 [facility] Comment on above: Performed By: #### Y PNRP #### [facility] (DEFAULT) [address] [place] [address] Osmolality [Osmolality] 287 mosm/kg Normal 278-305 [facility] Comment on above: Performed By: #### Y PNRP #### [facility] (DEFAULT) [address] [place] [address] Potassium [Moles/Vol] 4.3 mmol/L Normal 3.5-5.0 [facility] Comment on above: Performed By: #### Y PNRP #### [facility] (DEFAULT) [address] [place] [address]18 Sodium [Moles/Vol] 136 mmol/L Normal 135-145 [facility] Comment on above: Performed By: #### Y PNRP #### [facility] (DEFAULT) [address] [place] [address] Urea nitrogen [Mass/Vol] 16 mg/dL Normal 7-25 [facility] Comment on above: Performed By: #### Y PNRP #### [facility] (DEFAULT) [address] [place] [address] Urea nitrogen/Creatinine [Mass ratio] 13 mg/mg Normal [facility] Comment on above: Performed By: #### Y PNRP #### [facility] (DEFAULT) [address] [place] [address] Anion gap [Moles/Vol] 13 mmol/L 7 - 17 mmol/L [facility] Chloride [Moles/Vol] 105 mmol/L 98 - 10 8 mmol/L [facility] CO2 [Moles/Vol] 22 mmol/L 21 - 31 mmol/L [facility] Creatinine [Mass/Vol] 1.25 mg/dL 0.70 - 1.30 mg/dL [facility] eGFR, CKD-EPI, Male 69 - [facility] Glucose [Mass/Vol] 105 mg/dL High 70 - 99 mg/dL [facility] Osmolality Calc [Osmolality] 287 [facility] Potassium [Moles/Vol] 4.3 mmol/L 3.5 - 5.0 mmol/L [facility] Sodium [Moles/Vol] 136 mmol/L 135 - 145 mmol/L [facility] Urea nitrogen [Mass/Vol] 16 mg/dL 7 - 25 mg/dL [facility] Urea nitrogen/Creatinine [Mass ratio] 13 mg/mg [facility] CMV PCR,FLUIDS,URINE,EYE ETC on 09-02-2023 CMV by PCR Result Negative Normal Negative [facility] Comment on above: Result Comment: ADDITIONAL INFORMATION This test was developed and its performance characteristics determined by [facility] in a manner consistent with CLIA requirements. This test has not been cleared or approved by the U.S. Food and Drug Administration. Test Performed by: [facility] - [address] [address] Store Operations Manager: Rosendo Bose M.D. Ph.D.; CLIA# [id number] Performed By: #### T ACRO #### [facility] (DEFAULT) [address] [place] [address] CMV BY PCR SOURCE BAL RML Normal [facility] Comment on above: Performed By: #### T ACRO #### [facility] (DEFAULT) [address] [place] [address] CMV by PCR Result Negative Normal Negative [facility] Comment on above: Result Comment: ADDITIONAL INFORMATION This test was developed and its performance characteristics determined by [facility] in a manner consistent with CLIA requirements. This test has not been cleared or approved by the U.S. Food and Drug Administration. Test Performed by: [facility] - [address] [address] Store Operations Manager: Rosendo Bose M.D. Ph.D.; CLIA# [id number] Performed By: #### T ACRO #### [facility] (DEFAULT) [address] [address] CMV BY PCR SOURCE BAL LLL Normal [facility] Comment on above: Performed By: #### T ACRO #### [facility] (DEFAULT) [address] [place] [address] CYTOLOGY, NON-GYNon 09-02-[address] [facility] Comment on above: Result Comment: A. B RONCHOALVEOLAR LAVAGE, LEFT LOWER LOBE (CYTOLOGY): FINAL DIAGNOSIS: No Malignant Cells Are Identified Hypocellular Specimen Performed By: #### N RONYGNGRAEMEFROBERTA #### [facility] (DEFAULT) [address] [place] [address] Case Report Normal [facility] Comment on above: Result Comment: [facility] Cytology Report Case: [id number] Authorizing Provider: Corw Diaz MD Collected: 09/02/2023 08:38 AM Ordering Location: [facility] Received: 09/02/2023 10:44 AM Pathologist: Sherice Jimenez MD Specimen: BRONCHOALVEOLAR LAVAGE, LLL BAL Performed By: #### N LITZY #### [facility] (DEFAULT) [address] [address] Clinical History Renal transplant. Normal [facility] Comment on above: Performed By: #### N LITZY #### [facility] (DEFAULT) [address] [address] Gross Description Normal [facility] Comment on above: Result Comment: LLL BAL 1 ml hazy colorless fld unfixed 1 TP slide Pap stain For Immediate Release to Patient's MyChart? Yes Performed By: #### N ONGNNONFNA #### [facility] (DEFAULT) [address] [address] FUNGUS CULTUREon 09-02-2023 Bacteria identified Cx Nom (Unsp spec) Normal [facility] Comment on above: Order Comment: Ident ification was performed on the MALDI-TOF mass spectrometer [employer]. This test was developed by [facility]. It has not been cleared or approved by the FDA. The laboratory is regulated under CLIA as qualified to perform high-complexity testing. This test is used for clinical purposes. It should not be regarded as investigational or for research. Result Comment: [employer] [place] Histoplasma capsulatum Performed By: #### H EMOGC #### [facility] (DEFAULT) [address] [address] Bacteria identified Cx Nom (Unsp spec) NO GROWTH DAY 28 OF 28 Normal [facility] Comment on above: Order Comment: Pleas e draw at specified interval PRIOR to dose. Do not hold dose to wait for level. Specimens batched twice per day, (M-F) and once per day weekends Method performed is a chemiluminescent microparticle immunoasssay on the [employer] i2000. The range is based on experience at [facility] and users should be aware that target concentrations vary widely depending on concomitant therapy, time post-transplant, and desired degree of immunosuppression. Performed By: #### T ACRO #### [facility] (DEFAULT) [address] [address] HEPATIC FUNCTION PANELon Albumin [Mass/Vol] 3.2 g/dL Low 3.5-5.0 [facility] Comment on above: Performed By: #### Y PNRP #### [facility] (DEFAULT) [address] [place] [address] ALP [Catalytic activity/Vol] 107 U/L Normal 32-126 [facility] Comment on above: Performed By: #### Y PNRP #### [facility] (DEFAULT) [address] [place] [address]853 ALT [Catalytic activity/Vol] 20 U/L Normal 10-52 [facility] Comment on above: Performed By: #### Y PNRP #### [facility] (DEFAULT) [address] [place] [address] AST [Catalytic activity/Vol] 31 U/L Normal 10-39 [facility] Comment on above: Performed By: #### Y PNRP #### [facility] (DEFAULT) [address] [place] [address] Bilirubin [Mass/Vol] 1.0 mg/dL Normal <1.5 [facility] Comment on above: Performed By: #### Y PNRP #### [facility] (DEFAULT) [address] [place] [address] Bilirubin.indirect [Mass/Vol] 0.3 mg/dL High <0.3 [facility] Comment on above: Performed By: #### Y PNRP #### [facility] (DEFAULT) [address] [place] [address] Protein [Mass/Vol] 6.6 g/dL Normal 6.4-8.3 [facility] Comment on above: Performed By: #### Y PNRP #### [facility] (DEFAULT) [address] [place] [address] Albumin [Mass/Vol] 3.2 g/dL Low 3.5 - 5.0 g/dL [facility] ALP [Catalytic activity/Vol] 107 U/L 32 - 126 U/L [facility] ALT [Catalytic activity/Vol] 20 U/L 10 - 52 U/L [facility] AST [Catalytic activity/Vol] 31 U/L 10 - 39 U/L [facility] Bilirubin [Mass/Vol] 1.0 mg/dL NINF - 1.5 mg/dL [facility] Bilirubin.direct [Mass/Vol] 0.3 mg/dL High NINF - 0.3 mg/dL [facility] Protein [Mass/Vol] 6.6 g/dL 6.4 - 8.3 g/dL [facility] HISTOPLASMA ANTIGEN, FLUIDon 09-02-2023 FH SOURCE BAL RML Normal [facility] Comment on above: Performed By: #### T ACRO #### [facility] (DEFAULT) [address] [address] Histo FLD interpretation Negative Normal [facility] Comment on above: Result Comment: ADDITIONAL INFORMATION Reference interval: None Detected Reportable Range: Positive Results reported in ng/mL from 0.20 ng/mL to 20.00 ng/mL Positive Results above 20.00 ng/mL are reported as 'Above the Limit of Quantification' Cross-reactions occur with Blastomyces spp., Coccidioides spp., and Paracoccidioides brasiliensis. This test was developed and its performance characteristics determined by [employer]. It has not been cleared or approved by the FDA; however, FDA clearance or approval is not currently required for clinical use. The results are not intended to be used as the sole means for clinical diagnosis or patient management decisions. Test Performed by: [employer] [address] [facility] [place] [address] Performed By: #### T ACRO #### [facility] (DEFAULT) [address] [address] Histoplasma Antigen, FLUID Not detected Normal [facility] Comment on above: Performed By: #### T ACRO #### [facility] (DEFAULT) [address] [place] [address] HISTOPLASMA ANTIGEN,URINEon 09-02-2023 H. capsulatum Ag (U) [Mass/Vol] Not detected ng/mL [facility] H. capsulatum Ag IA Ql (U) Not detected Not Detected [facility] HISTOPLASMA CAPSULATUM/BLAST OMYCES SPECIES,PCR FLUIDon 09-02-2023 HISTO/BLASTO RESULT Negative Normal Not Applicable [facility] Comment on above: Result Comment: A Ne gative result from BAL fluid does not rule out the presence of Histoplasma capsulatum because the sensitivity from this source is suboptimal. ADDITIONAL INFORMATION This test was developed and its performance characteristics determined by [facility] in a manner consistent with CLIA requirements. This test has not been cleared or approved by the U.S. Food and Drug Administration. Test Performed by: [address] [address] Store Operations Manager: Rosendo Bose M.D. Ph.D.; CLIA# [id number] Performed By: #### T ACRO #### [facility] (DEFAULT) [address] [address] Source BAL RML Normal [facility] Comment on above: Performed By: #### T ACRO #### [facility] (DEFAULT) [address] [address] HIV 1 AND 2 ANTIBODIES/P24 A NTIGENOrdered By: Wilma Luque on 09-02-2023 HIV 1+2 Ab+HIV1 p24 Ag IA Ql Non-Reactive Non Reactive [facility] Interpretation and review of laboratory results Normal [facility] HIV 1 AND 2 ANTIBODIES/P24 A NTIGENon 09-02-2023 HIV-1/HIV-2 Ab With p24 Antigen Non-Reactive Normal Non Reactive [facility] Comment on above: Performed By: #### L [id number] ####[facility] (DEFAULT)[address] [address] LEGIONELLA CULTUREon 023 Bacteria identified Cx Nom (Unsp spec) NO GROWTH DAY 7 OF 7 Normal [facility] Comment on above: Performed By: #### H EMO #### [facility] (DEFAULT) [address] [place] [address] Bacteria identified Cx Nom (Unsp spec) NO GROWTH DAY 7 OF 7 Normal [facility] Comment on above: Order Comment: BAL l egionella culture Performed By: #### L EGN #### [facility] (DEFAULT) [address] [address] LEGIONELLA PCRon 09-02-2023 Legionella species, Culture BAL RML Normal [facility] Comment on above: Performed By: #### T ACRO #### [facility] (DEFAULT) [address] [address] Legionella, pcr result Negative Normal Not Applicable [facility] Comment on above: Result Comment: ADDITIONAL INFORMATION This test was developed and its performance characteristics determined by [facility] in a manner consistent with CLIA requirements. This test has not been cleared or approved by the U.S. Food and Drug Administration. Test Performed by: [facility] - [address] [address] Store Operations Manager: Rosendo Bose M.D. Ph.D.; CLIA# [id number] Performed By: #### T ACRO #### [facility] (DEFAULT) [address] [place] [address] LOWER RESPIRATORY CULTURE, B ACTERIALon 09-02-2023 Bacteria identified Cx Nom (Unsp spec) NO GROWTH DAY 2 OF 2 Normal [facility] Comment on above: Performed By: #### T ACRO #### [facility] (DEFAULT) [address] [address] Microscopic observation Gram stain Nom (Unsp spec) [facility] Comment on above: Result Comment: Cyto centrifuge preparation Neutrophils, Rare Red Blood Cells Present No organisms seen Performed By: #### T ACRO #### [facility] (DEFAULT) [address] [place] [address] Bacteria identified Cx Nom (Unsp spec) NO GROWTH DAY 2 OF 2 Normal [facility] Comment on above: Order Comment: BAL b acterial respiratory culture Performed By: #### H EMOGC #### [facility] (DEFAULT) [address] [place] [address] Microscopic observation Gram stain Nom (Unsp spec) Normal [facility] Comment on above: Order Comment: BAL b acterial respiratory culture Result Comment: Cyto centrifuge preparation Neutrophils, Moderate Red Blood Cells Present No organisms seen Performed By: #### H EMO #### [facility] (DEFAULT) [address] [place] [address] MAGNESIUMon 09-02-2023 Magnesium [Mass/Vol] 1.7 mg/dL Normal 1.6-2.6 [facility] Comment on above: Performed By: #### L EGN #### [facility] (DEFAULT) [address] [place] [address] Interpretation and review of laboratory results Normal [facility] Magnesium [Mass/Vol] 1.7 mg/dL 1.6 - 2 .6 mg/dL [facility] No Panel Informationon 09-02 Interpretation and review of laboratory results Abnormal [facility] PNEUMOCYSTIS JIROVECI,PCRon 09-02-2023 PN Report Status DNR Normal [facility] Comment on above: Performed By: #### T ACRO #### [facility] (DEFAULT) [address] [place] [address] PN Specimen Source BAL RML Normal [facility] Comment on above: Performed By: #### T ACRO #### [facility] (DEFAULT) [address] [place] [address] Pneum jiroveci comment DNR Normal [facility] Comment on above: Performed By: #### T ACRO #### [facility] (DEFAULT) [address] [address] Pneumocystis jiroveci,PCR result Negative Normal Not Applicable [facility] Comment on above: Result Comment: ADDITIONAL INFORMATION This test was developed and its performance characteristics determined by [facility] in a manner consistent with CLIA requirements. This test has not been cleared or approved by the U.S. Food and Drug Administration. Test Performed by: [place] [address] Store Operations Manager: Rosendo Bose M.D. Ph.D.; CLIA# [id number] Performed By: #### T ACRO #### [facility] (DEFAULT) [address] [address] PN Report Status DNR Normal [facility] Comment on above: Performed By: #### Y PNRP #### [facility] (DEFAULT) [address] [address] PN Specimen Source BAL LLL Normal [facility] Comment on above: Performed By: #### Y PNRP #### [facility] (DEFAULT) [address] [address] Pneum jiroveci comment DNR Normal [facility] Comment on above: Performed By: #### Y PNRP #### [facility] (DEFAULT) [address] [address] Pneumocystis jiroveci,PCR result Negative Normal Not Applicable [facility] Comment on above: Result Comment: ADDITIONAL INFORMATION This test was developed and its performance characteristics determined by [facility] in a manner consistent with CLIA requirements. This test has not been cleared or approved by the U.S. Food and Drug Administration. Test Performed by: [place] [address] Store Operations Manager: Rosendo Bose M.D. Ph.D.; [facility]# [id number] Performed By: #### Y [facility] #### [facility] (DEFAULT) [address] [address] TACROLIMUS LEVEL, TROUGH (UT E DRUG LEVEL)on 09-02-2023 Interpretation and review of laboratory results Normal [facility] Tacrolimus (Bld) [Mass/Vol] 4.2 ng/mL [facility] Tacrolimus, Trough 4.2 ng/mL Normal [facility] ow Transplant: 4.0-12.0, Therapeutic: 5.0-15.0 [facility] Comment on above: Order Comment: Pleas e draw at specified interval PRIOR to dose. Do not hold dose to wait for level. Specimens batched twice per day, (M-) and once per day weekends Method performed is a chemiluminescent microparticle immunoasssay on the [employer] i2000. The range is based on experience at [facility] and users should be aware that target concentrations vary widely depending on concomitant therapy, time post-transplant, and desired degree of immunosuppression. Performed By: #### T ACRO #### [facility] (DEFAULT) [address] [address] CBC,PLATELETSon 09-01-2023 Hematocrit (Bld) [Volume fraction] 38.9 % Low 39.6-48.8 [facility] Comment on above: Performed By: #### H [facility] #### [facility] (DEFAULT) [address] [address] Hemoglobin (Bld) [Mass/Vol] 12.7 g/dL Low 13.4-16.8 [facility] Comment on above: Performed By: #### H EMO #### [facility] (DEFAULT) [address] [address] MCV (RBC) [Entitic vol] 84.6 fL Normal 79.0-94.5 [facility] Comment on above: Performed By: #### H EMOGC #### [facility] (DEFAULT) [address] [place] [address] Mean Cell Hgb 27.6 pg Normal 26.1-33.3 [facility] Comment on above: Performed By: #### H EMOGC #### [facility] (DEFAULT) [address] [address] Mean Cell Hgb Conc 32.6 g/dL Normal 31.9-36.5 [facility] Comment on above: Performed By: #### H EMOGC #### [facility] (DEFAULT) [address] [place] [address] Platelet mean volume (Bld) [Entitic vol] 9.4 fL Normal 8.7-12.3 [facility] Comment on above: Performed By: #### H EMOGC #### [facility] (DEFAULT) [address] [address] Platelets (Bld) [#/Vol] 209 10*3/uL Normal 146-337 [facility] Comment on above: Performed By: #### H EMOGC #### [facility] (DEFAULT) [address] [address] RBC (Bld) [#/Vol] 4.60 10*6/uL Normal 4.38-5.83 [facility] Comment on above: Performed By: #### H EMOGC #### [facility] (DEFAULT) [address] [address] [address] RBC Distribution 13.4 % Normal 10.9-14.3 [facility] Comment on above: Performed By: #### H EMOGC #### [facility] (DEFAULT) [address] [address] WBC (Bld) [#/Vol] 4.41 10*3/uL Normal 3.73-10.10 [facility] Comment on above: Performed By: #### H EMOGC #### [facility] (DEFAULT) [address] [address] Erythrocyte distribution width (RBC) [Ratio] 13.4 % 10.9 - 14.3 % [facility] Hematocrit (Bld) [Volume fraction] 38.9 % Low 39.6 - 48.8 % [facility] Hemoglobin (Bld) [Mass/Vol] 12.7 g/dL Low 13.4 - 16.8 g/dL [facility] Interpretation and review of laboratory results Abnormal [facility] MCH (RBC) [Entitic mass] 27.6 pg 26.1 - 33.3 pg [facility] MCHC (RBC) [Mass/Vol] 32.6 g/dL 31.9 - 36.5 g/dL [facility] MCV (RBC) [Entitic vol] 84.6 fL 79.0 - 94.5 fL [facility] Platelet mean volume (Bld) [Entitic vol] 9.4 fL 8.7 - 12.3 fL [facility] Platelets (Bld) [#/Vol] 209 10*3/uL 146 - 337 K/uL [facility] RBC (Bld) [#/Vol] 4.60 10*6/uL [facility] WBC (Bld) [#/Vol] 4.41 10*3/uL 3.73 - 10. 10 K/uL [facility] CHEM 7 (LYTES,BUN,CREA,GLUC) on 09-01-2023 Anion gap [Moles/Vol] 14 mmol/L Normal 7-17 [facility] Comment on above: Performed By: ###Walter UNDERWOOD #### [facility] (DEFAULT) [address] [place] [address] Chloride [Moles/Vol] 103 mmol/L Normal 98-108 [facility] Comment on above: Performed By: ###Walter UNDERWOOD #### [facility] (DEFAULT) [address] [place] [address] CO2 [Moles/Vol] 21 mmol/L Normal 21-31 [facility] Comment on above: Performed By: ###Walter UNDERWOOD #### [facility] (DEFAULT) [address] [place] [address] Creatinine [Mass/Vol] 1.16 mg/dL Normal 0.70-1.30 [facility] Comment on above: Performed By: #### Vale UNDERWOOD #### [facility] (DEFAULT) [address] [place] [address] GFR/1.73 sq M.predicted among non-blacks MDRD (S/P/Bld) [Vol rate/Area] 76 mL/min/{1.73_m2} Normal >=60 [facility] Comment on above: Result Comment: Repo rted eGFR is based on the CKD-EPI 2020 equation using creatinine, age, and sex. Performed By: ###Walter UNDERWOOD #### [facility] (DEFAULT) [address] [place] [address] Glucose [Mass/Vol] 117 mg/dL High 70-99 [facility] Comment on above: Performed By: #### Vale UNDERWOOD #### [facility] (DEFAULT) [address] [place] [address] Osmolality [Osmolality] 285 mosm/kg Normal 278-305 [facility] Comment on above: Performed By: ###Walter UNDERWOOD #### [facility] (DEFAULT) [address] [place] [address] Potassium [Moles/Vol] 4.2 mmol/L Normal 3.5-5.0 [facility] Comment on above: Performed By: #### Vale UNDERWOOD #### [facility] (DEFAULT) [address] [place] [address] Sodium [Moles/Vol] 134 mmol/L Low 135-145 [facility] Comment on above: Performed By: #### Vale UNDERWOOD #### [facility] (DEFAULT) [address] [place] [address] Urea nitrogen [Mass/Vol] 18 mg/dL Normal 7-25 [facility] Comment on above: Performed By: #### G YASMINE #### [facility] (DEFAULT) [address] [place] [address] Urea nitrogen/Creatinine [Mass ratio] 16 mg/mg Normal [facility] Comment on above: Performed By: #### G YASMINE #### [facility] (DEFAULT) [address] [place] [address] Anion gap [Moles/Vol] 14 mmol/L 7 - 17 mmol/L [facility] Chloride [Moles/Vol] 103 mmol/L 98 - 10 8 mmol/L [facility] CO2 [Moles/Vol] 21 mmol/L 21 - 31 mmol/L [facility] Creatinine [Mass/Vol] 1.16 mg/dL 0.70 - 1.30 mg/dL [facility] eGFR, CKD-EPI, Male 77 - PINF [facility] Glucose [Mass/Vol] 117 mg/dL High 70 - 99 mg/dL [facility] Osmolality Calc [Osmolality] 285 [facility] Potassium [Moles/Vol] 4.2 mmol/L 3.5 - 5.0 mmol/L [facility] Sodium [Moles/Vol] 134 mmol/L Low 135 - 145 mmol/L [facility] Urea nitrogen [Mass/Vol] 18 mg/dL 7 - 25 mg/dL [facility] Urea nitrogen/Creatinine [Mass ratio] 16 mg/mg [facility] CRYPTOCOCCAL ANTIGENon 09-01 Cryptococcus Antigen,Serum Negative Normal Negative [facility] Comment on above: Performed By: #### H EMO #### [facility] (DEFAULT) [address] [place] [address] Cryptococcus sp Ag Ql (S) Negative Negative [facility] Interpretation and review of laboratory results Normal [facility] HEPATIC FUNCTION PANELon Albumin [Mass/Vol] 3.3 g/dL Low 3.5-5.0 [facility] Comment on above: Performed By: #### C HM7, MGO, HFP ####[facility] (DEFAULT)[address] [place] [address] ALP [Catalytic activity/Vol] 112 U/L Normal 32-126 [facility] Comment on above: Performed By: #### C HM7, MGO, HFP ####[facility] (DEFAULT)[address] [place] [address] ALT [Catalytic activity/Vol] 21 U/L Normal 10-52 [facility] Comment on above: Performed By: #### C HM7, MGO, HFP ####[facility] (DEFAULT)[address] [place] [address] AST [Catalytic activity/Vol] 29 U/L Normal 10-39 [facility] Comment on above: Performed By: #### C HM7, MGO, HFP ####[facility] (DEFAULT)[address] [place] [address] Bilirubin [Mass/Vol] 1.0 mg/dL Normal <1.5 [facility] Comment on above: Performed By: #### C HM7, MGO, HFP ####[facility] (DEFAULT)[address] [place] [address] Bilirubin.indirect [Mass/Vol] 0.2 mg/dL Normal <0.3 [facility] Comment on above: Performed By: #### C HM7, MGO, HFP ####[facility] (DEFAULT)[address] [place] [address] Protein [Mass/Vol] 6.8 g/dL Normal 6.4-8.3 [facility] Comment on above: Performed By: #### C HM7, MGO, HFP ####[facility] (DEFAULT)[address] [place] [address] Albumin [Mass/Vol] 3.3 g/dL Low 3.5 - 5.0 g/dL [facility] ALP [Catalytic activity/Vol] 112 U/L 32 - 126 U/L [facility] ALT [Catalytic activity/Vol] 21 U/L 10 - 52 U/L [facility] AST [Catalytic activity/Vol] 29 U/L 10 - 39 U/L [facility] Bilirubin [Mass/Vol] 1.0 mg/dL NINF - 1.5 mg/dL [facility] Bilirubin.direct [Mass/Vol] 0.2 mg/dL NINF - 0.3 mg/dL [facility] Protein [Mass/Vol] 6.8 g/dL 6.4 - 8.3 g/dL [facility] L. pneumophila 1 Ag IA Ql (U )Ordered By: Carolin Miles on 09-01-2023 Interpretation and review of laboratory results Normal [facility] LEGIONELLA URINARY AGOrdered By: Carolin Miles on 09-01-2023 L. pneumophila 1 Ag IA Ql (U) Negative Negative [facility] MAGNESIUMon 09-01-2023 Magnesium [Mass/Vol] 1.6 mg/dL Normal 1.6-2.6 [facility] Comment on above: Performed By: #### G YASMINE #### [facility] (DEFAULT) [address] [place] [address] Interpretation and review of laboratory results Normal [facility] Magnesium [Mass/Vol] 1.6 mg/dL 1.6 - 2 .6 mg/dL [facility] No Panel Informationon 09-01 Interpretation and review of laboratory results Abnormal [facility] PARVOVIRUS (B19) DNA, PCR, B LOODon 09-01-2023 PARVOVIRUS B19 BY RAPID PCR Not detected Normal Not Detected [facility] Comment on above: Result Comment: The primers/probe used in this assay will detect parvovirus B19 and V9 (genotypes 1 # 3) but may not detect parvovirus genotype 2. The majority of circulating Parvovirus B19 strains in the [facility] are genotype 1. Genotype 2 is not believed to circulate widely in the [place], but has been associated with similar clinical features as genotype 1. Genotype 3 is most prevalent in some countries. This test was developed and its analytical performance characteristics have been determined by [employer] [place], [place]. It has not been cleared or approved by the FDA. This assay has been validated pursuant to the CLIA regulations and is used for clinical purposes. Test Performed at: [facility] [address] [place], [place] Ramon Benavides M.D., Ph.D.,Director of Laboratories Performed By: #### Vale UNDERWOOD #### [facility] (DEFAULT) [address] [place] [address] UT SPEC SOURCE Whole Blood Normal [facility] Comment on above: Performed By: #### Vale UNDERWOOD #### [facility] (DEFAULT) [address] [place] [address] ASPERGILLUS (GALACTOMANNAN), ANTIGENon 08-31-2023 Aspergillus Antigen <0.500 Normal <0.5 [facility] Comment on above: Result Comment: ADDITIONAL INFORMATION This is a qualitative test and the resulted index value is not indicative of disease severity. Serial testing is recommended for patients at high risk for invasive aspergillosis. This assay was performed using the FDA-cleared [employer] Platelia Aspergillus Galactomannan EIA. Test Performed by: [address] [address] Store Operations Manager: Rosendo Bose M.D. Ph.D.; CLIA# [id number] Performed By: #### Y PNRP #### [facility] (DEFAULT) [address] [place] [address] CBC,PLATELETSon 08-31-2023 Hematocrit (Bld) [Volume fraction] 39.4 % Low 39.6-48.8 [facility] Comment on above: Performed By: #### T ACRO #### [facility] (DEFAULT) [address] [place] [address] Hemoglobin (Bld) [Mass/Vol] 12.8 g/dL Low 13.4-16.8 [facility] Comment on above: Performed By: #### T ACRO #### [facility] (DEFAULT) [address] [place] [address] MCV (RBC) [Entitic vol] 85.1 fL Normal 79.0-94.5 [facility] Comment on above: Performed By: #### T ACRO #### [facility] (DEFAULT) [address] [place] [address] Mean Cell Hgb 27.6 pg Normal 26.1-33.3 [facility] Comment on above: Performed By: #### T ACRO #### [facility] (DEFAULT) [address] [place] [address] Mean Cell Hgb Conc 32.5 g/dL Normal 31.9-36.5 [facility] Comment on above: Performed By: #### T ACRO #### [facility] (DEFAULT) [address] [place] [address] Platelet mean volume (Bld) [Entitic vol] 9.6 fL Normal 8.7-12.3 [facility] Comment on above: Performed By: #### T ACRO #### [facility] (DEFAULT) [address] [address] Platelets (Bld) [#/Vol] 228 10*3/uL Normal 146-337 [facility] Comment on above: Performed By: #### T ACRO #### [facility] (DEFAULT) [address] [place] [address] RBC (Bld) [#/Vol] 4.63 10*6/uL Normal 4.38-5.83 [facility] Comment on above: Performed By: #### T ACRO #### [facility] (DEFAULT) [address] [place] [address] RBC Distribution 13.3 % Normal 10.9-14.3 [facility] Comment on above: Performed By: #### T ACRO #### [facility] (DEFAULT) [address] [place] [address] WBC (Bld) [#/Vol] 4.77 10*3/uL Normal 3.73-10.10 [facility] Comment on above: Performed By: #### T ACRO #### [facility] (DEFAULT) [address] [place] [address] Erythrocyte distribution width (RBC) [Ratio] 13.3 % 10.9 - 14.3 % [facility] Hematocrit (Bld) [Volume fraction] 39.4 % Low 39.6 - 48.8 % [facility] Hemoglobin (Bld) [Mass/Vol] 12.8 g/dL Low 13.4 - 16.8 g/dL [facility] Interpretation and review of laboratory results Abnormal [facility] MCH (RBC) [Entitic mass] 27.6 pg 26.1 - 33.3 pg [facility] MCHC (RBC) [Mass/Vol] 32.5 g/dL 31.9 - 36.5 g/dL [facility] MCV (RBC) [Entitic vol] 85.1 fL 79.0 - 94.5 fL [facility] Platelet mean volume (Bld) [Entitic vol] 9.6 fL 8.7 - 12.3 fL [facility] Platelets (Bld) [#/Vol] 228 10*3/uL 146 - 337 K/uL [facility] RBC (Bld) [#/Vol] 4.63 10*6/uL [facility] WBC (Bld) [#/Vol] 4.77 10*3/uL 3.73 - 10. 10 K/uL [facility] CHEM 7 (LYTES,BUN,CREA,GLUC) on 08-31-2023 Anion gap [Moles/Vol] 13 mmol/L Normal 7-17 [facility] Comment on above: Performed By: #### T ACRO #### [facility] (DEFAULT) [address] [place] [address] Chloride [Moles/Vol] 102 mmol/L Normal 98-108 [facility] Comment on above: Performed By: #### T ACRO #### [facility] (DEFAULT) [address] [place] [address] CO2 [Moles/Vol] 23 mmol/L Normal 21-31 [facility] Comment on above: Performed By: #### T ACRO #### [facility] (DEFAULT) [address] [place] [address] Creatinine [Mass/Vol] 1.37 mg/dL High 0.70-1.30 [facility] Comment on above: Performed By: #### T ACRO #### [facility] (DEFAULT) [address] [place] [address] GFR/1.73 sq M.predicted among non-blacks MDRD (S/P/Bld) [Vol rate/Area] 62 mL/min/{1.73_m2} Normal >=60 [facility] Comment on above: Result Comment: Repo rted eGFR is based on the CKD-EPI 2020 equation using creatinine, age, and sex. Performed By: #### T ACRO #### [facility] (DEFAULT) [address] [place] [address] Glucose [Mass/Vol] 112 mg/dL High 70-99 [facility] Comment on above: Performed By: #### T ACRO #### [facility] (DEFAULT) [address] [place] [address] Osmolality [Osmolality] 284 mosm/kg Normal 278-305 [facility] Comment on above: Performed By: #### T ACRO #### [facility] (DEFAULT) [address] [place] [address] Potassium [Moles/Vol] 4.4 mmol/L Normal 3.5-5.0 [facility] Comment on above: Performed By: #### T ACRO #### [facility] (DEFAULT) [address] [place] [address] Sodium [Moles/Vol] 134 mmol/L Low 135-145 [facility] Comment on above: Performed By: #### T ACRO #### [facility] (DEFAULT) [address] [place] [address] Urea nitrogen [Mass/Vol] 16 mg/dL Normal 7-25 [facility] Comment on above: Performed By: #### T ACRO #### [facility] (DEFAULT) [address] [place] [address] Urea nitrogen/Creatinine [Mass ratio] 12 mg/mg Normal [facility] Comment on above: Performed By: #### T ACRO #### [facility] (DEFAULT) [address] [place] [address] Anion gap [Moles/Vol] 13 mmol/L 7 - 17 mmol/L [facility] Chloride [Moles/Vol] 102 mmol/L 98 - 10 8 mmol/L [facility] CO2 [Moles/Vol] 23 mmol/L 21 - 31 mmol/L [facility] Creatinine [Mass/Vol] 1.37 mg/dL High 0.70 - 1.30 mg/dL [facility] eGFR, CKD-EPI, Male 62 - PINF [facility] Glucose [Mass/Vol] 112 mg/dL High 70 - 99 mg/dL [facility] Osmolality Calc [Osmolality] 284 [facility] Potassium [Moles/Vol] 4.4 mmol/L 3.5 - 5.0 mmol/L [facility] Sodium [Moles/Vol] 134 mmol/L Low 135 - 145 mmol/L [facility] Urea nitrogen [Mass/Vol] 16 mg/dL 7 - 25 mg/dL [facility] Urea nitrogen/Creatinine [Mass ratio] 12 mg[facility]BDOMEN/PELVIS WITHOUT CO NTRASTon 08-31-2023 CT [...] Adrenals: Adrenal glands are unremarkable. Kidneys: The prairie band kidneys are atrophic. No stones or hydronephrosis. No focal lesions noted within the prairie band kidneys on this noncontrast study. Renovascular calcifications [...] seen likely secondary to portal hypertension Gastrointestinal/Mesent katei: Stomach is partly distended with food residue [...] have reviewed and approved this report. Normal [facility] CT Abdomen and Pelvis WO con traston 08-31-2023 RADIOLOGY RADIOLOGY [facility] Radiology Study observation (narrative) [facility] CT Abdomen and Pelvis WO con trastOrdered By: Chavez Larkin on 08-31-2023 [facility] Work Phone: CT CHEST WITHOUT CONTRASTon 08-31-2023 [...] likely reactive. 4. Coronary artery disease. Normal [facility] CT Chest WO contraston 08-31 RADIOLOGY RADIOLOGY [facility] Radiology Study observation (narrative) [facility] CT Chest WO contrastOrdered By: Daisha Patterson on 08-31-2023 [facility] Work Phone: FERRITINon 08-31-2023 Ferritin [Mass/Vol] 409.0 ng/mL High 10.5 - 3 07.3 ng/mL [facility] Interpretation and review of laboratory results Abnormal [facility] Ferritin [Mass/Vol] 409.0 ng/mL High 10.5-307.3 [facility] Comment on above: Performed By: #### T ACRO #### [facility] (DEFAULT) [address] [place] [address] HEPATIC FUNCTION PANELon Albumin [Mass/Vol] 3.3 g/dL Low 3.5-5.0 [facility] Comment on above: Performed By: #### T ACRO #### [facility] (DEFAULT) [address] [place] [address] ALP [Catalytic activity/Vol] 113 U/L Normal 32-126 [facility] Comment on above: Performed By: #### T ACRO #### [facility] (DEFAULT) [address] [place] [address] ALT [Catalytic activity/Vol] 25 U/L Normal 10-52 [facility] Comment on above: Performed By: #### T ACRO #### [facility] (DEFAULT) [address] [place] [address] AST [Catalytic activity/Vol] 31 U/L Normal 10-39 [facility] Comment on above: Performed By: #### T ACRO #### [facility] (DEFAULT) [address] [place] [address] Bilirubin [Mass/Vol] 1.1 mg/dL Normal <1.5 [facility] Comment on above: Performed By: #### T ACRO #### [facility] (DEFAULT) [address] [place] [address] Bilirubin.indirect [Mass/Vol] 0.3 mg/dL High <0.3 [facility] Comment on above: Performed By: #### T ACRO #### [facility] (DEFAULT) [address] [place] [address] Protein [Mass/Vol] 7.0 g/dL Normal 6.4-8.3 [facility] Comment on above: Performed By: #### T ACRO #### [facility] (DEFAULT) [address] [place] [address] Albumin [Mass/Vol] 3.3 g/dL Low 3.5 - 5.0 g/dL [facility] ALP [Catalytic activity/Vol] 113 U/L 32 - 126 U/L [facility] ALT [Catalytic activity/Vol] 25 U/L 10 - 52 U/L [facility] AST [Catalytic activity/Vol] 31 U/L 10 - 39 U/L [facility] Bilirubin [Mass/Vol] 1.1 mg/dL NINF - 1.5 mg/dL [facility] Bilirubin.direct [Mass/Vol] 0.3 mg/dL High NINF - 0.3 mg/dL [facility] Protein [Mass/Vol] 7.0 g/dL 6.4 - 8.3 g/dL [facility] LEGIONELLA URINARY AGon Legionella Urinary Antigen Negative Normal Negative [facility] Comment on above: Performed By: #### T ACRO #### [facility] (DEFAULT) [address] [place] [address] MAGNESIUMon 08-31-2023 Magnesium [Mass/Vol] 1.7 mg/dL Normal 1.6-2.6 [facility] Comment on above: Performed By: #### T ACRO #### [facility] (DEFAULT) [address] [place] [address] Interpretation and review of laboratory results Normal [facility] Magnesium [Mass/Vol] 1.7 mg/dL 1.6 - 2 .6 mg/dL [facility] No Panel Informationon 08-31 Interpretation and review of laboratory results Abnormal [facility] PROCALCITONINon 08-31-2023 Interpretation and review of laboratory results Normal [facility] Procalcitonin [Mass/Vol] 0.23 ng/mL NINF - 0.50 ng/mL [facility] Procalcitonin 0.23 ng/mL Normal <0.50 [facility] Comment on above: Result Comment: Proc alcitonin [...] and trend procalcitonin in various clinical settings. [email or web address] Two common cutoffs associated with bacterial infections are as follows. Respiratory tract infections: >0.25 ng/mL Sepsis/septic shock: >0.5 ng/mL Procalcitonin should not be used alone as a diagnostic tool, however. All procalcitonin results should be interpreted in association with the patients clinical condition and all laboratory findings. Performed By: #### T ACRO #### [facility] (DEFAULT) [address] [place] [address] TACROLIMUS LEVEL, TROUGH (UT E DRUG LEVEL)Ordered By: Yanira Marcum on 08-31-2023 Interpretation and review of laboratory results Normal [facility] Tacrolimus (Bld) [Mass/Vol] 5.9 ng/mL [facility] TACROLIMUS LEVEL, TROUGH (UT E DRUG LEVEL)on 08-31-2023 Tacrolimus, Trough 5.9 ng/mL Normal [facility] Susana ow Transplant: 4.0-12.0, Therapeutic: 5.0-15.0 [facility] Comment on above: Order Comment: Pleas e draw at specified interval PRIOR to dose. Do not hold dose to wait for level. Specimens batched twice per day, (M-F) and once per day weekendsMethod performed is a chemiluminescent microparticle immunoasssay on the [employer] i2000.The range is based on experience at [facility] and users should be aware that target concentrations vary widely depending on concomitant therapy, time post-transplant, and desired degree of immunosuppression. Performed By: #### T ACRO ####[facility] (DEFAULT)[address] [place] [address] URINE CULTUREOrdered By: Jorge crowe Held on 08-31-2023 Bacteria identified Cx Nom (Unsp spec) No Growth [facility] DARYL AURIS SCREEN BY PCRO rdered By: Mynor Alejandro on 08-30-2023 Daryl auris Screen by PCR Not detected Not Detected [facility] Interpretation and review of laboratory results Normal [facility] CBC,PLATELETSon 08-30-2023 Hematocrit (Bld) [Volume fraction] 41.3 % Normal 39.6-48.8 [facility] Comment on above: Performed By: #### G YASMINE #### [facility] (DEFAULT) [address] [place] [address] Hemoglobin (Bld) [Mass/Vol] 13.2 g/dL Low 13.4-16.8 [facility] Comment on above: Performed By: #### G YASMINE #### [facility] (DEFAULT) [address] [place] [address] 97679 MCV (RBC) [Entitic vol] 85.5 fL Normal 79.0-94.5 [facility] Comment on above: Performed By: #### G YASMINE #### [facility] (DEFAULT) [address] [place] [address] 28558 Mean Cell Hgb 27.3 pg Normal 26.1-33.3 [facility] Comment on above: Performed By: #### G YASMINE #### [facility] (DEFAULT) [address] [place] [address] 19588 Mean Cell Hgb Conc 32.0 g/dL Normal 31.9-36.5 [facility] Comment on above: Performed By: #### Vale UNDERWOOD #### [facility] (DEFAULT) [address] [place] [address] 33516 Platelet mean volume (Bld) [Entitic vol] 9.2 fL Normal 8.7-12.3 [facility] Comment on above: Performed By: #### Vale UNDERWOOD #### [facility] (DEFAULT) [address] [place] [address] 57732 Platelets (Bld) [#/Vol] 235 10*3/uL Normal 146-337 [facility] Comment on above: Performed By: #### Vale UNDERWOOD #### [facility] (DEFAULT) [address] [place] [address] 80012 RBC (Bld) [#/Vol] 4.83 10*6/uL Normal 4.38-5.83 [facility] Comment on above: Performed By: ###Walter UNDERWOOD #### [facility] (DEFAULT) [address] [place] [address] 14760 RBC Distribution 13.3 % Normal 10.9-14.3 [facility] Comment on above: Performed By: ###Walter UNDERWOOD #### [facility] (DEFAULT) [address] [place] [address] 81662 WBC (Bld) [#/Vol] 4.96 10*3/uL Normal 3.73-10.10 [facility] Comment on above: Performed By: ###Walter UNDERWOOD #### [facility] (DEFAULT) [address] [place] [address] 73002 Erythrocyte distribution width (RBC) [Ratio] 13.3 % 10.9 - 14.3 % [facility] Hematocrit (Bld) [Volume fraction] 41.3 % 39.6 - 48.8 % [facility] Hemoglobin (Bld) [Mass/Vol] 13.2 g/dL Low 13.4 - 16.8 g/dL [facility] Interpretation and review of laboratory results Abnormal [facility] MCH (RBC) [Entitic mass] 27.3 pg 26.1 - 33.3 pg [facility] MCHC (RBC) [Mass/Vol] 32.0 g/dL 31.9 - 36.5 g/dL [facility] MCV (RBC) [Entitic vol] 85.5 fL 79.0 - 94.5 fL [facility] Platelet mean volume (Bld) [Entitic vol] 9.2 fL 8.7 - 12.3 fL [facility] Platelets (Bld) [#/Vol] 235 10*3/uL 146 - 337 K/uL [facility] RBC (Bld) [#/Vol] 4.83 10*6/uL [facility] WBC (Bld) [#/Vol] 4.96 10*3/uL 3.73 - 10. 10 K/uL [facility] CHEM 7 (LYTES,BUN,CREA,GLUC) on 08-30-2023 Anion gap [Moles/Vol] 14 mmol/L Normal 7-17 [facility] Comment on above: Performed By: #### T ACRO #### [facility] (DEFAULT) [address] [place] [address] 75908 Chloride [Moles/Vol] 102 mmol/L Normal 98-108 [facility] Comment on above: Performed By: #### T ACRO #### [facility] (DEFAULT) [address] [place] [address] 17123 CO2 [Moles/Vol] 20 mmol/L Low 21-31 [facility] Comment on above: Performed By: #### T ACRO #### [facility] (DEFAULT) [address] [place] [address] 49529 Creatinine [Mass/Vol] 1.56 mg/dL High 0.70-1.30 [facility] Comment on above: Performed By: #### T ACRO #### [facility] (DEFAULT) [address] [place] [address] 75837 GFR/1.73 sq M.predicted among non-blacks MDRD (S/P/Bld) [Vol rate/Area] 53 mL/min/{1.73_m2} Low >=60 [facility] Comment on above: Result Comment: Repo rted eGFR is based on the CKD-EPI 2020 equation using creatinine, age, and sex. Performed By: #### T ACRO #### [facility] (DEFAULT) [address] [place] [address] 70479 Glucose [Mass/Vol] 123 mg/dL High 70-99 [facility] Comment on above: Performed By: #### T ACRO #### [facility] (DEFAULT) [address] [place] [address] 52488 Osmolality [Osmolality] 281 mosm/kg Normal 278-305 [facility] Comment on above: Performed By: #### T ACRO #### [facility] (DEFAULT) [address] [place] [address] 76893 Potassium [Moles/Vol] 4.3 mmol/L Normal 3.5-5.0 [facility] Comment on above: Performed By: #### T ACRO #### [facility] (DEFAULT) [address] [place] [address] 72329 Sodium [Moles/Vol] 132 mmol/L Low 135-145 [facility] Comment on above: Performed By: #### T ACRO #### [facility] (DEFAULT) [address] [place] [address] 50024 Urea nitrogen [Mass/Vol] 16 mg/dL Normal 7-25 [facility] Comment on above: Performed By: #### T ACRO #### [facility] (DEFAULT) [address] [place] [address] 37741 Urea nitrogen/Creatinine [Mass ratio] 10 mg/mg Normal [facility] Comment on above: Performed By: #### T ACRO #### [facility] (DEFAULT) [address] [place] [address] 22973 Anion gap [Moles/Vol] 14 mmol/L 7 - 17 mmol/L [facility] Chloride [Moles/Vol] 102 mmol/L 98 - 10 8 mmol/L [facility] CO2 [Moles/Vol] 20 mmol/L Low 21 - 31 mmol/L [facility] Creatinine [Mass/Vol] 1.56 mg/dL High 0.70 - 1.30 mg/dL [facility] eGFR, CKD-EPI, Male 53 Low - PINF [facility] Glucose [Mass/Vol] 123 mg/dL High 70 - 99 mg/dL [facility] Osmolality Calc [Osmolality] 281 [facility] Potassium [Moles/Vol] 4.3 mmol/L 3.5 - 5.0 mmol/L [facility] Sodium [Moles/Vol] 132 mmol/L Low 135 - 145 mmol/L [facility] Urea nitrogen [Mass/Vol] 16 mg/dL 7 - 25 mg/dL [facility] Urea nitrogen/Creatinine [Mass ratio] 10 mg/mg [facility] EXTRA MICROon 08-30-2023 [facility] HEPATIC FUNCTION PANELon Albumin [Mass/Vol] 3.7 g/dL Normal 3.5-5.0 [facility] Comment on above: Performed By: #### T ACRO #### [facility] (DEFAULT) [address] [place] [address] 96627 ALP [Catalytic activity/Vol] 115 U/L Normal 32-126 [facility] Comment on above: Performed By: #### T ACRO #### [facility] (DEFAULT) [address] [place] [address] ALT [Catalytic activity/Vol] 22 U/L Normal 10-52 [facility] Comment on above: Performed By: #### T ACRO #### [facility] (DEFAULT) [address] [place] [address] AST [Catalytic activity/Vol] 34 U/L Normal 10-39 [facility] Comment on above: Performed By: #### T ACRO #### [facility] (DEFAULT) [address] [place] [address] 14937 Bilirubin [Mass/Vol] 1.2 mg/dL Normal <1.5 [facility] Comment on above: Performed By: #### T ACRO #### [facility] (DEFAULT) [address] [place] [address] 86141 Bilirubin.indirect [Mass/Vol] 0.3 mg/dL High <0.3 [facility] Comment on above: Performed By: #### T ACRO #### [facility] (DEFAULT) [address] [place] [address] 42387 Protein [Mass/Vol] 7.7 g/dL Normal 6.4-8.3 [facility] Comment on above: Performed By: #### T ACRO #### [facility] (DEFAULT) [address] [place] [address] 38792 Albumin [Mass/Vol] 3.7 g/dL 3.5 - 5.0 g/dL [facility] ALP [Catalytic activity/Vol] 115 U/L 32 - 126 U/L [facility] ALT [Catalytic activity/Vol] 22 U/L 10 - 52 U/L [facility] AST [Catalytic activity/Vol] 34 U/L 10 - 39 U/L [facility] Bilirubin [Mass/Vol] 1.2 mg/dL [facility] Bilirubin.direct [Mass/Vol] 0.3 mg/dL High NINF - 0.3 mg/dL [facility] Protein [Mass/Vol] 7.7 g/dL 6.4 - 8.3 g/dL [facility] MAGNESIUMon 08-30-2023 Magnesium [Mass/Vol] 1.8 mg/dL Normal 1.6-2.6 [facility] Comment on above: Performed By: #### T ACRO #### [facility] (DEFAULT) [address] [place] [address] 28411 Interpretation and review of laboratory results Normal [facility] Magnesium [Mass/Vol] 1.8 mg/dL 1.6 - 2 .6 mg/dL [facility] No Panel Informationon 08-30 Interpretation and review of laboratory results Abnormal [facility] CBC,PLATELETSon 08-29-2023 Hematocrit (Bld) [Volume fraction] 37.6 % Low 39.6-48.8 [facility] Comment on above: Performed By: #### H EMOGC #### [facility] (DEFAULT) [address] [place] [address] 58191 Hemoglobin (Bld) [Mass/Vol] 12.2 g/dL Low 13.4-16.8 [facility] Comment on above: Performed By: #### H EMOGC #### [facility] (DEFAULT) [address] [place] [address] 34420 MCV (RBC) [Entitic vol] 85.1 fL Normal 79.0-94.5 [facility] Comment on above: Performed By: #### H EMOGC #### [facility] (DEFAULT) [address] [place] [address] 46426 Mean Cell Hgb 27.6 pg Normal 26.1-33.3 [facility] Comment on above: Performed By: #### H EMOGC #### [facility] (DEFAULT) [address] [place] [address] 35305 Mean Cell Hgb Conc 32.4 g/dL Normal 31.9-36.5 [facility] Comment on above: Performed By: #### H EMOGC #### [facility] (DEFAULT) [address] [place] [address] 93756 Platelet mean volume (Bld) [Entitic vol] 9.4 fL Normal 8.7-12.3 [facility] Comment on above: Performed By: #### H EMOGC #### [facility] (DEFAULT) [address] [place] [address] 67778 Platelets (Bld) [#/Vol] 233 10*3/uL Normal 146-337 [facility] Comment on above: Performed By: #### H [facility] #### [facility] (DEFAULT) [address] [place] [address] 40322 RBC (Bld) [#/Vol] 4.42 10*6/uL Normal 4.38-5.83 [facility] Comment on above: Performed By: #### H EMO #### [facility] (DEFAULT) [address] [place] [address] 87424 RBC Distribution 13.4 % Normal 10.9-14.3 [facility] Comment on above: Performed By: #### H EMO #### [facility] (DEFAULT) [address] [place] [address] 53973 WBC (Bld) [#/Vol] 4.92 10*3/uL Normal 3.73-10.10 [facility] Comment on above: Performed By: #### H [facility] #### [facility] (DEFAULT) [address] [place] [address] 88603 Erythrocyte distribution width (RBC) [Ratio] 13.4 % 10.9 - 14.3 % [facility] Hematocrit (Bld) [Volume fraction] 37.6 % Low 39.6 - 48.8 % [facility] Hemoglobin (Bld) [Mass/Vol] 12.2 g/dL Low 13.4 - 16.8 g/dL [facility] Interpretation and review of laboratory results Abnormal [facility] MCH (RBC) [Entitic mass] 27.6 pg 26.1 - 33.3 pg [facility] MCHC (RBC) [Mass/Vol] 32.4 g/dL 31.9 - 36.5 g/dL [facility] MCV (RBC) [Entitic vol] 85.1 fL 79.0 - 94.5 fL [facility] Platelet mean volume (Bld) [Entitic vol] 9.4 fL 8.7 - 12.3 fL [facility] Platelets (Bld) [#/Vol] 233 10*3/uL 146 - 337 K/uL [facility] RBC (Bld) [#/Vol] 4.42 10*6/uL [facility] WBC (Bld) [#/Vol] 4.92 10*3/uL 3.73 - 10. 10 K/uL [facility] CHEM 7 (LYTES,BUN,CREA,GLUC) on 08-29-2023 Anion gap [Moles/Vol] 13 mmol/L Normal 7-17 [facility] Comment on above: Performed By: #### G YASMINE #### [facility] (DEFAULT) [address] [address] Chloride [Moles/Vol] 105 mmol/L Normal 98-108 [facility] Comment on above: Performed By: #### G YASMINE #### [facility] (DEFAULT) [address] [place] [address] 93696 CO2 [Moles/Vol] 20 mmol/L Low 21-31 [facility] Comment on above: Performed By: #### G YASMINE #### [facility] (DEFAULT) [address] [place] [address] 32040 Creatinine [Mass/Vol] 1.55 mg/dL High 0.70-1.30 [facility] Comment on above: Performed By: #### G YASMINE #### [facility] (DEFAULT) [address] [place] [address] 30135 GFR/1.73 sq M.predicted among non-blacks MDRD (S/P/Bld) [Vol rate/Area] 54 mL/min/{1.73_m2} Low >=60 [facility] Comment on above: Result Comment: Repo rted eGFR is based on the CKD-EPI 2020 equation using creatinine, age, and sex. Performed By: #### G YASMINE #### [facility] (DEFAULT) [address] [place] [address] 33598 Glucose [Mass/Vol] 108 mg/dL High 70-99 [facility] Comment on above: Performed By: #### G YASMINE #### [facility] (DEFAULT) [address] [place] [address] 20491 Osmolality [Osmolality] 283 mosm/kg Normal 278-305 [facility] Comment on above: Performed By: #### Vale UNDERWOOD #### [facility] (DEFAULT) [address] [place] [address] 55203 Potassium [Moles/Vol] 4.5 mmol/L Normal 3.5-5.0 [facility] Comment on above: Performed By: #### Vale UNDERWOOD #### [facility] (DEFAULT) [address] [place] [address] 35688 Sodium [Moles/Vol] 133 mmol/L Low 135-145 [facility] Comment on above: Performed By: #### Vale UNDERWOOD #### [facility] (DEFAULT) [address] [place] [address] 27000 Urea nitrogen [Mass/Vol] 19 mg/dL Normal 7-25 [facility] Comment on above: Performed By: #### Vale UNDERWOOD #### [facility] (DEFAULT) [address] [place] [address] 94311 Urea nitrogen/Creatinine [Mass ratio] 12 mg/mg Normal [facility] Comment on above: Performed By: #### Vale UNDERWOOD #### [facility] (DEFAULT) [address] [place] [address] 00111 Anion gap [Moles/Vol] 13 mmol/L 7 - 17 mmol/L [facility] Chloride [Moles/Vol] 105 mmol/L 98 - 10 8 mmol/L [facility] CO2 [Moles/Vol] 20 mmol/L Low 21 - 31 mmol/L [facility] Creatinine [Mass/Vol] 1.55 mg/dL High 0.70 - 1.30 mg/dL [facility] eGFR, CKD-EPI, Male 55 Low - [facility]F [facility] Glucose [Mass/Vol] 108 mg/dL High 70 - 99 mg/dL [facility] Osmolality Calc [Osmolality] 283 [facility] Potassium [Moles/Vol] 4.5 mmol/L 3.5 - 5.0 mmol/L [facility] Sodium [Moles/Vol] 133 mmol/L Low 135 - 145 mmol/L [facility] Urea nitrogen [Mass/Vol] 19 mg/dL 7 - 25 mg/dL [facility] Urea nitrogen/Creatinine [Mass ratio] 12 mg/mg [facility] GGTon 08-29-2023 Gamma glutamyl transferase [Catalytic activity/Vol] 64 U/L 8 - 64 U/L [facility] Interpretation and review of laboratory results Normal [facility] Gamma glutamyl transferase [Catalytic activity/Vol] 64 U/L Normal 8-64 [facility] Comment on above: Performed By: #### Vale UNDERWOOD #### [facility] (DEFAULT) [address] [place] [address] 83607 HEPATIC FUNCTION PANELon Albumin [Mass/Vol] 3.3 g/dL Low 3.5-5.0 [facility] Comment on above: Performed By: ###Walter UNDERWOOD #### [facility] (DEFAULT) [address] [place] [address] 88600 ALP [Catalytic activity/Vol] 103 U/L Normal 32-126 [facility] Comment on above: Performed By: #### Vale UNDERWOOD #### [facility] (DEFAULT) [address] [place] [address] 62783 ALT [Catalytic activity/Vol] 18 U/L Normal 10-52 [facility] Comment on above: Performed By: #### Vale UNDERWOOD #### [facility] (DEFAULT) [address] [place] [address] 09896 AST [Catalytic activity/Vol] 27 U/L Normal 10-39 [facility] Comment on above: Performed By: #### Vale UNDERWOOD #### [facility] (DEFAULT) [address] [place] [address] 37670 Bilirubin [Mass/Vol] 1.1 mg/dL Normal <1.5 [facility] Comment on above: Performed By: #### G YASMINE #### [facility] (DEFAULT) [address] [place] [address] 65357 Bilirubin.indirect [Mass/Vol] 0.3 mg/dL High <0.3 [facility] Comment on above: Performed By: #### G YASMINE #### [facility] (DEFAULT) [address] [place] [address] 34024 Protein [Mass/Vol] 6.8 g/dL Normal 6.4-8.3 [facility] Comment on above: Performed By: #### G YASMINE #### [facility] (DEFAULT) [address] [place] [address] 38892 Albumin [Mass/Vol] 3.3 g/dL Low 3.5 - 5.0 g/dL [facility] ALP [Catalytic activity/Vol] 103 U/L 32 - 126 U/L [facility] ALT [Catalytic activity/Vol] 18 U/L 10 - 52 U/L [facility] AST [Catalytic activity/Vol] 27 U/L 10 - 39 U/L [facility] Bilirubin [Mass/Vol] 1.1 mg/dL [facility] mg/dL [facility] Bilirubin.direct [Mass/Vol] 0.3 mg/dL High NINF - 0.3 mg/dL [facility] Protein [Mass/Vol] 6.8 g/dL 6.4 - 8.3 g/dL [facility] HISTOPLASMA AND BLASTOMYCES ANTIGEN, ENZYME IMMUNOASSAY, SERMon 08-29-2023 Histoplasma/Blastomyc es Ag Result Detected Invalid Interpretation Code Not Detected [facility] Comment on above: Result Comment: Anti gen from Histoplasma or Blastomyces (unable to differentiate) detected. Result should be correlated with clinical presentation, exposure history, and other diagnostic procedures, including culture, serology, histopathology, and/or radiographic findings, to aid in the differentiation between histoplasmosis and blastomycosis. CRITICAL RESULT Performed By: #### Y PNRP #### [facility] (DEFAULT) [address] [address] Histoplasma/Blastomyc es Ag Value 5.3 ng/mL Normal [facility] Comment on above: Result Comment: ADDITIONAL INFORMATION This test was developed and its performance characteristics determined by [facility] in a manner consistent with CLIA requirements. This test has not been cleared or approved by the U.S. Food and Drug Administration. Test Performed by: [facility] [place] [address] Store Operations Manager: Rosendo Bose M.D. Ph.D.; CLIA# [id number] Performed By: #### Y PNRP #### [facility] (DEFAULT) [address] [place] [address] 20617 HISTOPLASMA ANTIGEN,URINEon 08-29-2023 HISTOPLASM AG, URINE Not detected Normal Not Detected [facility] Comment on above: Result Comment: No H istoplasma antigen detected. False negative results may occur. Repeat testing on a new specimen should be considered if clinically indicated. Performed By: #### T ACRO #### [facility] (DEFAULT) [address] [place] [address] 00709 Histoplasma Ag Value Not detected Normal [facility] Comment on above: Result Comment: ADDITIONAL INFORMATION This test has been modified from the bee tender's instructions. Its performance characteristics were determined by [facility] in a manner consistent with CLIA requirements. This test has not been cleared or approved by the U.S. Food and Drug Administration. Test Performed by: [facility] [place] [address] Store Operations Manager: Rosendo Bose M.D. Ph.D.; CLIA# [id number] Performed By: #### T ACRO #### [facility] (DEFAULT) [address] [place] [address] 03115 MAGNESIUMon 08-29-2023 Magnesium [Mass/Vol] 1.7 mg/dL Normal 1.6-2.6 [facility] Comment on above: Performed By: #### G YASMINE #### [facility] (DEFAULT) [address] [place] [address] 59282 Interpretation and review of laboratory results Normal [facility] Magnesium [Mass/Vol] 1.7 mg/dL 1.6 - 2 .6 mg/dL [facility] No Panel Informationon 08-29 Interpretation and review of laboratory results Abnormal [facility] PT,INR,PTTon 08-29-2023 aPTT Coag (Bld) [Time] 29.3 s Normal 24.0-34.3 [facility] Comment on above: Performed By: #### L EGN #### [facility] (DEFAULT) [address] [place] [address] 98277 INR Coag (PPP) [Relative time] 1.1 {INR} Normal 0.9-1.1 [facility] Comment on above: Performed By: #### L EGN #### [facility] (DEFAULT) [address] [place] [address] 90590 PT Coag (PPP) [Time] 13.8 s Normal 11.9-14.2 [facility] Comment on above: Performed By: #### L EGN #### [facility] (DEFAULT) [address] [place] [address] 30358 aPTT Coag (PPP) [Time] 29.3 s [facility] INR Coag (Bld) [Relative time] 1.1 {INR} 0.9 - 1.1 [facility] Interpretation and review of laboratory results Normal [facility] PT Coag (PPP) [Time] 13.8 s [facility] Portable XR Chest Viewson RADIOLOGY RADIOLOGY [facility] Portable XR Chest ViewsOrder ed By: Gerald Baer on 08-29-2023 [facility] Work Phone: TACROLIMUS LEVEL, TROUGH (UT E DRUG LEVEL)on 08-29-2023 Interpretation and review of laboratory results Normal [facility] Tacrolimus (Bld) [Mass/Vol] 8.9 ng/mL [facility] Tacrolimus, Trough 8.9 ng/mL Normal Bone Susana ow Transplant: 4.0-12.0, Therapeutic: 5.0-15.0 [facility] Comment on above: Order Comment: Pleas e draw at specified interval PRIOR to dose. Do not hold dose to wait for level. Specimens batched twice per day, (M-F) and once per day weekendsMethod performed is a chemiluminescent microparticle immunoasssay on the [employer] i2000.The range is based on experience at [facility] and users should be aware that target concentrations vary widely depending on concomitant therapy, time post-transplant, and desired degree of immunosuppression. Performed By: #### H EMOGC #### [facility] (DEFAULT) [address] [address] Tacrolimus, Trough 8.7 ng/mL Normal [facility] Transplant: 4.0-12.0, Therapeutic: 5.0-15.0 [facility] Comment on above: Order Comment: Pleas e draw at specified interval PRIOR to dose. Do not hold dose to wait for level. Specimens batched twice per day, (M-F) and once per day weekends Method performed is a chemiluminescent microparticle immunoasssay on the [employer] i2000. The range is based on experience at [facility] and users should be aware that target concentrations vary widely depending on concomitant therapy, time post-transplant, and desired degree of immunosuppression. Performed By: #### T ACRO #### [facility] (DEFAULT) [address] [place] [address] TACROLIMUS LEVEL, TROUGH (UT E DRUG LEVEL)Ordered By: Roxanne Louie on 08-29-2023 Interpretation and review of laboratory results Normal [facility] Tacrolimus (Bld) [Mass/Vol] 8.7 ng/mL [facility] URINALYSIS REFLEX TO CULTURE PERFORMABLEon 08-29-2023 Appearance (U) Clear Normal Clear [facility] Comment on above: Order Comment: Pleas e draw at specified interval PRIOR to dose. Do not hold dose to wait for level. Specimens batched twice per day, (M-F) and once per day weekends Method performed is a chemiluminescent microparticle immunoasssay on the [employer] i2000. The range is based on experience at [facility] and users should be aware that target concentrations vary widely depending on concomitant therapy, time post-transplant, and desired degree of immunosuppression. Performed By: #### T ACRO #### [facility] (DEFAULT) [address] [address] Bacteria ABSENT Normal ABSENT [facility] Comment on above: Order Comment: Pleas e draw at specified interval PRIOR to dose. Do not hold dose to wait for level. Specimens batched twice per day, (M-F) and once per day weekends Method performed is a chemiluminescent microparticle immunoasssay on the [employer] i2000. The range is based on experience at [facility] and users should be aware that target concentrations vary widely depending on concomitant therapy, time post-transplant, and desired degree of immunosuppression. Performed By: #### T ACRO #### [facility] (DEFAULT) [address] [address] Blood Urine Trace Abnormal Negative [facility] Comment on above: Order Comment: Pleas e draw at specified interval PRIOR to dose. Do not hold dose to wait for level. Specimens batched twice per day, (M-F) and once per day weekends Method performed is a chemiluminescent microparticle immunoasssay on the [employer] i2000. The range is based on experience at [facility] and users should be aware that target concentrations vary widely depending on concomitant therapy, time post-transplant, and desired degree of immunosuppression. Performed By: #### T ACRO #### [facility] (DEFAULT) [address] [address] Calcium Oxalate Crystals PRESENT Normal [facility] Comment on above: Order Comment: Pleas e draw at specified interval PRIOR to dose. Do not hold dose to wait for level. Specimens batched twice per day, (M-F) and once per day weekends Method performed is a chemiluminescent microparticle immunoasssay on the [employer] i2000. The range is based on experience at [facility] and users should be aware that target concentrations vary widely depending on concomitant therapy, time post-transplant, and desired degree of immunosuppression. Performed By: #### T ACRO #### [facility] [address] [address] Color (U) Yellow Normal Yellow [facility] Comment on above: Order Comment: Pleas e draw at specified interval PRIOR to dose. Do not hold dose to wait for level. Specimens batched twice per day, (M-F) and once per day weekends Method performed is a chemiluminescent microparticle immunoasssay on the [employer] i2000. The range is based on experience at [facility] and users should be aware that target concentrations vary widely depending on concomitant therapy, time post-transplant, and desired degree of immunosuppression. Performed By: #### T ACRO #### [facility] (DEFAULT) [address] [address] Glucose Ql (U) Negative Normal Negative [facility] Comment on above: Order Comment: Pleas e draw at specified interval PRIOR to dose. Do not hold dose to wait for level. Specimens batched twice per day, (M-F) and once per day weekends Method performed is a chemiluminescent microparticle immunoasssay on the [employer] i2000. The range is based on experience at [facility] and users should be aware that target concentrations vary widely depending on concomitant therapy, time post-transplant, and desired degree of immunosuppression. Performed By: #### T ACRO #### [facility] (DEFAULT) [address] [place] [address] Ketones Ql (U) Negative Normal Negative [facility] Comment on above: Order Comment: Pleas e draw at specified interval PRIOR to dose. Do not hold dose to wait for level. Specimens batched twice per day, (M-F) and once per day weekends Method performed is a chemiluminescent microparticle immunoasssay on the [employer] i2000. The range is based on experience at [facility] and users should be aware that target concentrations vary widely depending on concomitant therapy, time post-transplant, and desired degree of immunosuppression. Performed By: #### T ACRO #### [facility] (DEFAULT[facility] [address] [place] [address] Leukocyte esterase Test strip Ql (U) Negative Normal Negative [facility] Comment on above: Order Comment: Pleas e draw at specified interval PRIOR to dose. Do not hold dose to wait for level. Specimens batched twice per day, (M-F) and once per day weekends Method performed is a chemiluminescent microparticle immunoasssay on the [employer] i2000. The range is based on experience at [facility] and users should be aware that target concentrations vary widely depending on concomitant therapy, time post-transplant, and desired degree of immunosuppression. Performed By: #### T ACRO #### [facility] (DEFAULT) [address] [place] [address] Nitrites Urine Negative Normal Negative [facility] Comment on above: Order Comment: Pleas e draw at specified interval PRIOR to dose. Do not hold dose to wait for level. Specimens batched twice per day, (M-F) and once per day weekends Method performed is a chemiluminescent microparticle immunoasssay on the [employer] i2000. The range is based on experience at [facility] and users should be aware that target concentrations vary widely depending on concomitant therapy, time post-transplant, and desired degree of immunosuppression. Performed By: #### T ACRO #### [facility] (DEFAULT) [address] [place] [address] pH (U) 6.0 [pH] Normal 5.0-7.0 [facility] Comment on above: Order Comment: Pleas e draw at specified interval PRIOR to dose. Do not hold dose to wait for level. Specimens batched twice per day, (M-F) and once per day weekends Method performed is a chemiluminescent microparticle immunoasssay on the [employer] i2000. The range is based on experience at [facility] and users should be aware that target concentrations vary widely depending on concomitant therapy, time post-transplant, and desired degree of immunosuppression. Performed By: #### T ACRO #### [facility] (DEFAULT) [address] [place] [address] Protein Urine Negative Normal Negative [facility] Comment on above: Order Comment: Pleas e draw at specified interval PRIOR to dose. Do not hold dose to wait for level. Specimens batched twice per day, (M-F) and once per day weekends Method performed is a chemiluminescent microparticle immunoasssay on the [employer] i2000. The range is based on experience at [facility] and users should be aware that target concentrations vary widely depending on concomitant therapy, time post-transplant, and desired degree of immunosuppression. Performed By: #### T ACRO #### [facility] (DEFAULT) [address] [place] [address] RBC Urine 3-5 Abnormal 0-2 [facility] Comment on above: Order Comment: Pleas e draw at specified interval PRIOR to dose. Do not hold dose to wait for level. Specimens batched twice per day, (M-F) and once per day weekends Method performed is a chemiluminescent microparticle immunoasssay on the [employer] i2000. The range is based on experience at [facility] and users should be aware that target concentrations vary widely depending on concomitant therapy, time post-transplant, and desired degree of immunosuppression. Performed By: #### T ACRO #### [facility] (DEFAULT) [address] [address] Specific [place] Urine 1.015 Normal 1.001-1.035 [facility] Comment on above: Order Comment: Pleas e draw at specified interval PRIOR to dose. Do not hold dose to wait for level. Specimens batched twice per day, (M-F) and once per day weekends Method performed is a chemiluminescent microparticle immunoasssay on the [employer] i2000. The range is based on experience at [facility] and users should be aware that target concentrations vary widely depending on concomitant therapy, time post-transplant, and desired degree of immunosuppression. Performed By: #### T ACRO #### [facility] (DEFAULT) [address] [place] [address] Squamous/Epithelial Cells 0-2/hpf Normal 0-2/hpf, 3-5/hpf = 1+ [facility] Comment on above: Order Comment: Pleas e draw at specified interval PRIOR to dose. Do not hold dose to wait for level. Specimens batched twice per day, (M-F) and once per day weekends Method performed is a chemiluminescent microparticle immunoasssay on the [employer] i2000. The range is based on experience at [facility] and users should be aware that target concentrations vary widely depending on concomitant therapy, time post-transplant, and desired degree of immunosuppression. Performed By: #### T ACRO #### [facility] (DEFAULT) [address] [address] Urobilinogen Urine 1.0 E.U./dL Normal 0.2 E.U/d L, 1.0 E.U/dL [facility] Comment on above: Order Comment: Pleas e draw at specified interval PRIOR to dose. Do not hold dose to wait for level. Specimens batched twice per day, (M-F) and once per day weekends Method performed is a chemiluminescent microparticle immunoasssay on the [employer] i2000. The range is based on experience at [facility] and users should be aware that target concentrations vary widely depending on concomitant therapy, time post-transplant, and desired degree of immunosuppression. Performed By: #### T ACRO #### [facility] (DEFAULT) [address] [place] [address] WBC Urine 0 - 5 Normal 0 - 5 [facility] Comment on above: Order Comment: Pleas e draw at specified interval PRIOR to dose. Do not hold dose to wait for level. Specimens batched twice per day, (M-F) and once per day weekends Method performed is a chemiluminescent microparticle immunoasssay on the [employer] i2000. The range is based on experience at [facility] and users should be aware that target concentrations vary widely depending on concomitant therapy, time post-transplant, and desired degree of immunosuppression. Performed By: #### T ACRO #### [facility] (DEFAULT) [address] [address] URINALYSIS REFLEX TO CULTURE PERFORMABLEOrdered By: Shaji Kelly on 09-30-2023 Appearance (U) Clear Clear [facility] Bacteria LM Ql (Urine sed) ABSENT ABSENT [facility] Calcium Oxalate Crystals PRESENT [facility] Color (U) Yellow Yellow [facility] Epithelial cells.squamous LM Ql (Urine sed) 0-2/hpf 0-2/hpf, 3-5/hpf = 1+ [facility] Glucose Test strip (U) [Mass/Vol] Negative Negative [facility] Interpretation and review of laboratory results Abnormal [facility] Ketones (U) [Mass/Vol] Negative Negative [facility] Leukocyte esterase Test strip Ql (U) Negative Negative [facility] Nitrite Ql (U) Negative Negative [facility] pH (U) 6.0 [pH] 5.0 - 7.0 [facility] Protein (U) [Mass/Vol] Negative Negative [facility] RBC (U) [#/Vol] Trace Abnormal Negative [facility] RBC LM.HPF (Urine sed) [#/Area] 3-5 Abnormal [facility] Specific gravity (U) [Rel density] 1.015 1.001 - 1.035 [facility] Urobilinogen (U) [Mass/Vol] 1.0 E.U./dL 0.2 E.U/dL, 1.0 E.U/dL [facility] WBC LM.HPF (Urine sed) [#/Area] 0 - 5 [facility] URINE CULTUREon 08-29-2023 Bacteria identified Cx Nom (U) No Growth Normal [facility] Comment on above: Order Comment: For i ndwelling catheters, specimen collection is acceptable on catheter day 1 and 2 only. Sung top vacutainer. Urine must be to the fill line to process (4mls). If minimum volume, send urine in a yellow top vacutainer tube. Performed By: #### [facility] #### [facility] (DEFAULT) [address] [place] [address] [place] RENAL TRANSPLANT SCANon 0 08-29-2023 US [...] have reviewed and approved this report. Normal [facility] US for transplanted kidney l imitedon 08-29-2023 RADIOLOGY RADIOLOGY [facility] Radiology Study observation (narrative) [facility] US for transplanted kidney l imitedOrdered By: Romana Myers on 08-29-2023 [facility] Work Phone: XR CHEST PORTABLEon 08-29-20 XR CHEST PORTABLE EXAM: XR CHEST PORTABLE, 08/28/2023 21:46 PM CLINICAL INDICATIONS: Fevers, cough RELEVANT CLINICAL HISTORY: COMPARISON: May 17, 2022 FINDINGS: Clear lungs. Prominent heart, unchanged. No pulmonary edema. Normal bones. IMPRESSION: Prominent heart without pulmonary edema. Clear lungs. Normal [facility] BLOOD CULTUREon 08-28-2023 Bacteria identified Cx Nom (Unsp spec) NO GROWTH DAY 5 OF 5 Normal [facility] Comment on above: Order Comment: 2 Bot tles (1 Set - consists of 1 Aerobic bottle and 1 Anaerobic bottle) -1st Peripheral DrawFor syringe method draw:If able to obtain adequate sample (20 ml) inoculate anaerobic bottle firstIf inadequate sample obtained (less than 20 ml) inoculate aerobic bottle firstFor vacutainer method draw: Fill aerobic bottle first, then anaerobic Performed By: #### [facility] #### [facility] (DEFAULT) [address] [place] [address] Bacteria identified Cx Nom (Unsp spec) NO GROWTH DAY 5 OF 5 Normal [facility] Comment on above: Order Comment: 2 Bot tles (1 Set - consists of 1 Aerobic bottle and 1 Anaerobic bottle) -1st Peripheral DrawFor syringe method draw:If able to obtain adequate sample (20 ml) inoculate anaerobic bottle firstIf inadequate sample obtained (less than 20 ml) inoculate aerobic bottle firstFor vacutainer method draw: Fill aerobic bottle first, then anaerobic Performed By: #### [facility] #### [facility] (DEFAULT) [address] [place] [address] DARYL AURIS SCREEN BY PCRo n 08-28-2023 Daryl auris Screen by PCR Not detected Normal Not Detected [facility] Comment on above: Order Comment: This test was performed using a real-time PCR assay. This test was developed, and its performance characteristics determined by [facility]. It has not been cleared or approved by the FDA. The laboratory is regulated under CLIA as qualified to perform high-complexity testing. This test is used for clinical purposes. It should not be regarded as investigational or for research. Performed By: #### [facility] #### [facility]DEFAULT[facility] [address] [address] CBC AND ELECTRONIC DIFFon Abs Baso Auto < Normal 0.00-0.09 [facility] Comment on above: Performed By: #### Vale UNDERWOOD #### [facility] (DEFAULT) [address] [address] Basophils/100 WBC (Bld) 0.6 % Normal [facility] Comment on above: Performed By: #### Vale UNDERWOOD #### [facility] (DEFAULT) [address] [address] DIFF STATUS Electronic Differential Normal [facility] Comment on above: Performed By: #### Vale UNDERWOOD #### [facility] (DEFAULT) [address] [address] Eosinophils (Bld) [#/Vol] 0.10 10*3/uL Normal 0.00-0.48 [facility] Comment on above: Performed By: #### Vale UNDERWOOD #### [facility] (DEFAULT) [address] [address] Eosinophils/100 WBC (Bld) 2.1 % Normal [facility] Comment on above: Performed By: ###Walter UNDERWOOD #### [facility] (DEFAULT) [address] [address] Hematocrit (Bld) [Volume fraction] 37.9 % Low 39.6-48.8 [facility] Comment on above: Performed By: #### Vale UNDERWOOD #### [facility] (DEFAULT) [address] [address] Hemoglobin (Bld) [Mass/Vol] 12.4 g/dL Low 13.4-16.8 [facility] Comment on above: Performed By: #### Vale UNDERWOOD #### [facility] (DEFAULT) [address] [address] Immature Grans % 0.6 % Normal [facility] Comment on above: Performed By: #### Vale UNDERWOOD #### [facility] (DEFAULT) [address] [place] [address] Immature Grans Absolute < Normal <=0.07 [facility] Comment on above: Performed By: #### Vale UNDERWOOD #### [facility] (DEFAULT) [address] [place] [address] Lymphocytes (Bld) [#/Vol] 1.76 10*3/uL Normal 0.83-3.57 [facility] Comment on above: Performed By: #### G YASMINE #### [facility] (DEFAULT) [address] [place] [address] Lymphocytes/100 WBC (Bld) 37.1 % Normal [facility] Comment on above: Performed By: #### Vale UNDERWOOD #### [facility] (DEFAULT) [address] [place] [address] MCV (RBC) [Entitic vol] 85.0 fL Normal 79.0-94.5 [facility] Comment on above: Performed By: #### Vale UNDERWOOD #### [facility] (DEFAULT) [address] [address] Mean Cell Hgb 27.8 pg Normal 26.1-33.3 [facility] Comment on above: Performed By: #### Vale UNDERWOOD #### [facility] (DEFAULT) [address] [address] Mean Cell Hgb Conc 32.7 g/dL Normal 31.9-36.5 [facility] Comment on above: Performed By: #### Vale UNDERWOOD #### [facility] (DEFAULT) [address] [place] [address] Monocytes (Bld) [#/Vol] 0.66 10*3/uL Normal 0.24-0.93 [facility] Comment on above: Performed By: #### Vale ASAASHISH #### [facility] (DEFAULT) [address] [place] [address] Monocytes/100 WBC (Bld) 13.9 % Normal [facility] Comment on above: Performed By: #### Vale UNDERWOOD #### [facility] (DEFAULT) [address] [address] Nucleated RBC 0.0 /100 WBC Normal <=0.2 [facility] Comment on above: Performed By: #### Vale UNDERWOOD #### [facility] (DEFAULT) [address] [address] Platelet mean volume (Bld) [Entitic vol] 9.3 fL Normal 8.7-12.3 [facility] Comment on above: Performed By: #### Vale UNDERWOOD #### [facility] (DEFAULT) [address] [address] Platelets (Bld) [#/Vol] 262 10*3/uL Normal 146-337 [facility] Comment on above: Performed By: #### Vale UNDERWOOD #### [facility] (DEFAULT) [address] [address] RBC (Bld) [#/Vol] 4.46 10*6/uL Normal 4.38-5.83 [facility] Comment on above: Performed By: ###Walter UNDERWOOD #### [facility] (DEFAULT) [address] [address] RBC Distribution 13.4 % Normal 10.9-14.3 [facility] Comment on above: Performed By: #### Vale UNDERWOOD #### [facility] (DEFAULT) [address] [address] Segs + Bands Auto 45.7 % Normal [facility] Comment on above: Performed By: #### Vale UNDERWOOD #### [facility] (DEFAULT) [address] [address] Segs + Bands,Absolute Auto 2.16 K/uL Normal 1.57-6.19 [facility] Comment on above: Performed By: #### Vale UNDERWOOD #### [facility] (DEFAULT) [address] [place] [address] WBC (Bld) [#/Vol] 4.74 10*3/uL Normal 3.73-10.10 [facility] Comment on above: Performed By: #### G YASMINE #### [facility] (DEFAULT) [address] [place] [address] Basophils (Bld) [#/Vol] K/uL 0.00 - 0.09 K/uL [facility] Basophils/100 WBC (Bld) 0.6 % [facility] Differential cell count method Nom (Bld) Electronic Differential [facility] Eosinophils (Bld) [#/Vol] 0.10 10*3/uL 0.00 - 0.48 K/uL [facility] Eosinophils/100 WBC (Bld) 2.1 % [facility] Erythrocyte distribution width (RBC) [Ratio] 13.4 % 10.9 - 14.3 % [facility] Hematocrit (Bld) [Volume fraction] 37.9 % Low 39.6 - 48.8 % [facility] Hemoglobin (Bld) [Mass/Vol] 12.4 g/dL Low 13.4 - 16.8 g/dL [facility] Immature granulocytes (Bld) [#/Vol] K/uL NINF - 0.07 K/uL [facility] Immature granulocytes/100 WBC (Bld) 0.6 % [facility] Interpretation and review of laboratory results Abnormal [facility] Lymphocytes (Bld) [#/Vol] 1.76 10*3/uL 0.83 - 3.57 K/uL [facility] Lymphocytes/100 WBC (Bld) 37.1 % [facility] MCH (RBC) [Entitic mass] 27.8 pg 26.1 - 33.3 pg [facility] MCHC (RBC) [Mass/Vol] 32.7 g/dL 31.9 - 36.5 g/dL [facility] MCV (RBC) [Entitic vol] 85.0 fL 79.0 - 94.5 fL [facility] Monocytes (Bld) [#/Vol] 0.66 10*3/uL 0.24 - 0.93 K/uL [facility] Monocytes/100 WBC (Bld) 13.9 % [facility] Neutrophils (Bld) [#/Vol] 2.16 10*3/uL 1.57 - 6.19 K/uL [facility] Nucleated RBC/100 WBC (Bld) [Ratio] 0.0 % NINF [facility] Platelet mean volume (Bld) [Entitic vol] 9.3 fL 8.7 - 12.3 fL [facility] Platelets (Bld) [#/Vol] 262 10*3/uL 146 - 337 K/uL [facility] RBC (Bld) [#/Vol] 4.46 10*6/uL [facility] Segmented neutrophils/100 WBC (Bld) 45.7 % [facility] WBC (Bld) [#/Vol] 4.74 10*3/uL 3.73 - 10. 10 K/uL [facility] CHEM 6 (LYTES, BUN CREA)on 0 08-28-2023 Anion gap [Moles/Vol] 13 mmol/L Normal 7-17 [facility] Comment on above: Performed By: #### C HM6 #### [facility] (DEFAULT) [address] [place] [address] Chloride [Moles/Vol] 103 mmol/L Normal 98-108 [facility] Comment on above: Performed By: #### C HM6 #### [facility] (DEFAULT) [address] [place] [address] CO2 [Moles/Vol] 22 mmol/L Normal 21-31 [facility] Comment on above: Performed By: #### C HM6 #### [facility] (DEFAULT) [address] [place] [address] Creatinine [Mass/Vol] 1.62 mg/dL High 0.70-1.30 [facility] Comment on above: Performed By: #### C HM6 #### [facility] (DEFAULT) [address] [place] [address]69 GFR/1.73 sq M.predicted among non-blacks MDRD (S/P/Bld) [Vol rate/Area] 51 mL/min/{1.73_m2} Low >=60 [facility] Comment on above: Result Comment: Repo rted eGFR is based on the CKD-EPI 2020 equation using creatinine, age, and sex. Performed By: #### C HM6 #### [facility] (DEFAULT) [address] [place] [address] Potassium [Moles/Vol] 4.3 mmol/L Normal 3.5-5.0 [facility] Comment on above: Performed By: #### C HM6 #### [facility] (DEFAULT) [address] [place] [address] Sodium [Moles/Vol] 134 mmol/L Low 135-145 [facility] Comment on above: Performed By: #### C HM6 #### [facility] (DEFAULT) [address] [place] [address] Urea nitrogen [Mass/Vol] 22 mg/dL Normal 7-25 [facility] Comment on above: Performed By: #### C HM6 #### [facility] (DEFAULT) [address] [place] [address] Urea nitrogen/Creatinine [Mass ratio] 14 mg/mg Normal [facility] Comment on above: Performed By: #### C HM6 #### [facility] (DEFAULT) [address] [place] [address]329 Anion gap [Moles/Vol] 13 mmol/L 7 - 17 mmol/L [facility] Chloride [Moles/Vol] 103 mmol/L 98 - 10 8 mmol/L [facility] CO2 [Moles/Vol] 22 mmol/L 21 - 31 mmol/L [facility] Creatinine [Mass/Vol] 1.62 mg/dL High 0.70 - 1.30 mg/dL [facility] eGFR, CKD-EPI, Male 51 Low - PINF [facility] Interpretation and review of laboratory results Abnormal [facility] Potassium [Moles/Vol] 4.3 mmol/L 3.5 - 5.0 mmol/L [facility] Sodium [Moles/Vol] 134 mmol/L Low 135 - 145 mmol/L [facility] Urea nitrogen [Mass/Vol] 22 mg/dL 7 - 25 mg/dL [facility] Urea nitrogen/Creatinine [Mass ratio] 14 mg/[facility] IMMUNOCOMPROMISED RESPIRATOR Y PANELon 08-28-2023 Adenovirus - Pcr Not detected Normal Not Detected [facility] Comment on above: Order Comment: [...] nucleic acid assay. Performed By: #### [facility] #### [facility] (DEFAULT) [address] [place] [address] Bordetella Parapertussis Not detected Normal Not Detected [facility] Comment on above: Order Comment: [...] nucleic acid assay. Performed By: #### [facility] #### [facility] (DEFAULT) [address] [address] Bordetella Pertussis Not detected Normal Not Detected [facility] Comment on above: Order Comment: [...] nucleic acid assay. Performed By: #### [facility] #### [facility] (DEFAULT) [address] [place] [address] Chlamydia Pneumoniae Not detected Normal Not Detected [facility] Comment on above: Order Comment: [...] assay. Performed By: #### H EMO #### [facility] [address] [place] [address] Coronavirus 229E Not detected Normal Not Detected [facility] Comment on above: Order Comment: [...] assay. Performed By: #### H EMOGC #### [facility] (DEFAULT[facility] [address] [place] [address] Coronavirus Hku1 Not detected Normal Not Detected [facility] Comment on above: Order Comment: [...] nucleic acid assay. Performed By: #### [facility] #### [facility] (DEFAULT) [address] [address] Coronavirus Nl63 Not detected Normal Not Detected [facility] Comment on above: Order Comment: [...] nucleic acid assay. Performed By: #### [facility] #### [facility] (DEFAULT) [address] [place] [address] Coronavirus Oc43 Not detected Normal Not Detected [facility] Comment on above: Order Comment: [...] assay. Performed By: #### H EMO #### [facility] (DEFAULT) [address] [address] Influenza A - Pcr Not detected Normal [...] nucleic acid assay. Performed By: #### [facility] #### [facility] (DEFAULT) [address] [place] [address] Influenza B - Pcr Not detected Normal Not Detected [facility] Comment on above: Order Comment: Viral [...] nucleic acid assay. Performed By: #### [facility] #### [facility] (DEFAULT) [address] [place] [address] Metapneumovirus - Pcr Not detected Normal Not Detected [facility] Comment on above: Order Comment: [...] nucleic acid assay. Performed By: #### [facility] #### [facility] (DEFAULT) [address] [place] [address] Mycoplasma Pneumoniae Not detected Normal Not Detected [facility] Comment on above: Order Comment: [...] nucleic acid assay. Performed By: #### [facility] #### [facility] (DEFAULT) [address] [address] Parainfluenza 1 - Pcr Not detected Normal Not Detected [facility] Comment on above: Order Comment: [...] nucleic acid assay. Performed By: #### [facility] #### [facility] (DEFAULT) [address] [address] Parainfluenza 2 - Pcr Not detected Normal Not Detected [facility] Comment on above: Order Comment: [...] assay. Performed By: #### H EMO #### [facility] (DEFAULT) [address] [address] Parainfluenza 3 - Pcr Not detected Normal Not Detected [facility] Comment on above: Order Comment: [...] nucleic acid assay. Performed By: #### [facility] #### [facility] (DEFAULT) [address] [address] Parainfluenza 4 - Pcr Not detected Normal Not Detected [facility] Comment on above: Order Comment: [...] assay. Performed By: #### H EMO #### [facility] (DEFAULT) [address] [address] Rhinovirus/Enteroviru s - PCR Not detected Normal Not Detected [facility] Comment on above: Order Comment: [...] assay. Performed By: #### H EMO #### [facility] (DEFAULT) [address] [address] Rsv - Pcr Not detected Normal Not Detected [facility] Comment on above: Order Comment: [...] nucleic acid assay. Performed By: #### [facility] #### [facility] (DEFAULT) [address] [place] [address] SARS-CoV-2 (COVID-19) RNA ESTELITA+probe Ql (Unsp spec) Not detected Normal NOT DETECTED [facility] Comment on above: Order Comment: [...] nucleic acid assay. Performed By: #### [facility] #### [facility] (DEFAULT) [address] [place] [address] Portable XR Chest Viewson Radiology Study observation (narrative) [facility] Respiratory virus DNA+RNA NA A+probe Nom (Unsp spec)Ordered By: Dayami Harris on 08-28-2023 Adenovirus DNA ESTELITA+probe Nom (Unsp spec) Not detected Not Detected [facility] B. parapertussis DNA ESTELITA+probe Ql (Unsp spec) Not detected Not Detected [facility] B. pertussis DNA ESTELITA+probe Ql (Unsp spec) Not detected Not Detected [facility] C. pneumoniae DNA ESTELITA+probe Ql (Unsp spec) Not detected Not Detected [facility] FLUAV RNA ESTELITA+probe Ql (Unsp spec) Not detected Not Detected [facility] FLUBV RNA ESTELITA+probe Ql (Unsp spec) Not detected Not Detected [facility] HCoV 229E RNA ESTELITA+non-probe Ql (Nph) Not detected Not Detected [facility] HCoV HKU1 RNA ESTELITA+non-probe Ql (Nph) Not detected Not Detected [facility] HCoV NL63 RNA ESTELITA+non-probe Ql (Nph) Not detected Not Detected [facility] HCoV OC43 RNA ESTELITA+non-probe Ql (Nph) Not detected Not Detected [facility] hMPV A RNA ESTELITA+probe Ql (Unsp spec) Not detected Not Detected [facility] Interpretation and review of laboratory results Normal [facility] M. pneumoniae DNA ESTELITA+probe Ql (Unsp spec) Not detected Not Detected [facility] Parainfluenza virus 1 RNA ESTELITA+probe Ql (Unsp spec) Not detected Not Detected [facility] Parainfluenza virus 2 RNA ESTELITA+probe Ql (Unsp spec) Not detected Not Detected [facility] Parainfluenza virus 3 RNA ESTELITA+probe Ql (Unsp spec) Not detected Not Detected [facility] Parainfluenza virus 4 RNA ESTELITA+probe Ql (Unsp spec) Not detected Not Detected [facility] Rhinovirus+Enteroviru s RNA ESTELITA+probe Ql (Unsp spec) Not detected Not Detected [facility] RSV RNA ESTELITA+probe Ql (Unsp spec) Not detected Not Detected [facility] SARS-CoV-2 (COVID-19) RNA ESTELITA+probe Ql (Unsp spec) Not detected NOT DETECTED [facility] ALBUMINon 04-28-2023 Albumin [Mass/Vol] 4.0 g/dL Normal 3.4-5.0 [facility] Comment on above: Performed By: #### C MP #### [facility] [address] [place] [address] Dr. Dwight Waters ALKALINE PHOSPHAon 05-30-202 3 ALP [Catalytic activity/Vol] 106 U/L Normal 46-116 [facility] Comment on above: Performed By: #### F [id number] #### [facility] [address] [place] [address] Dr. Dwight Waters BILIRUBIN CONJUGATED (DIRECT )on 04-28-2023 BILI, CONJUGATED 0.3 mg/dL Critically high 0.0-0.2 [facility] Comment on above: Performed By: #### C MP #### [facility] [address] [place] [address] Dr. Dwight Waters BILIRUBIN TOTALon 04-28-2023 Bilirubin [Mass/Vol] 1.4 mg/dL Critically high 0.2-1.0 [facility] Comment on above: Performed By: #### C MP #### [facility] [address] [place] [address] Dr. Dwight Waters BUNon 04-28-2023 Urea nitrogen [Mass/Vol] 12.0 mg/dL Normal 7.0-18.0 [facility] Comment on above: Performed By: #### U RTPCR #### [facility] [address] [place] [address] Dr. Dwight Waters CALCIUMon 04-28-2023 Calcium [Mass/Vol] 9.3 mg/dL Normal 8.5-10.1 [facility] Comment on above: Performed By: #### U RTPCR #### [facility] [address] [place] [address] Dr. Dwight Waters CBC AUTO DIFFon 04-28-2023 BASO # 0.1 103/ul Normal 0.0-0.1 [facility] Comment on above: Performed By: #### C BC #### [facility] [address] [place] [address] Dr. Dwight Waters Basophils/100 WBC (Bld) 0.9 % Normal 0.2-2.0 [facility] Comment on above: Performed By: #### C BC #### [facility] [address] [place] [address] Dr. Dwight Waters EO # 0.2 103/ul Normal 0.0-0.7 [facility] Comment on above: Performed By: #### C BC #### [facility] [address] [place] [address] Dr. Dwight Waters Eosinophils/100 WBC (Bld) 3.8 % Normal 0.9-7.0 [facility] Comment on above: Performed By: #### C BC #### [facility] [address] [place] [address] Dr. Dwight Waters Erythrocyte distribution width (RBC) [Ratio] 12.5 % Normal 11.0-15.0 [facility] Comment on above: Performed By: #### C BC #### [facility] [address] [place] [address] Dr. Dwight Waters Hematocrit (Bld) [Volume fraction] 49.8 % Normal 42.0-54.0 [facility] Comment on above: Performed By: #### C BC #### [facility] [address] [place] [address] Dr. Dwight Waters Hemoglobin (Bld) [Mass/Vol] 16.4 g/dL Normal 14.0-18.0 [facility] Comment on above: Performed By: #### C BC #### [facility] [address] [place] [address] Dr. Dwight Waters IG # 0.01 10e3/ul Normal 0.00-0.03 [facility] Comment on above: Performed By: #### C BC #### [facility] [address] [place] [address] Dr. Dwight Waters IG % 0.2 % Normal 0.0-0.5 [facility] Comment on above: Performed By: #### C BC #### [facility] [address] [place] [address] Dr. Dwight Waters LYMPH # 2.1 103/ul Normal 1.2-3.8 [facility] Comment on above: Performed By: #### C BC #### [facility] [address] [place] [address] Dr. Dwight Waters Lymphocytes/100 WBC (Bld) 39.1 % Normal 20.5-60.0 [facility] Comment on above: Performed By: #### C BC #### [facility] [address] [place] [address] Dr. Dwight Waters MANUAL DIFF REQ NO [facility] Comment on above: Performed By: #### C BC #### [facility] [address] [place] [address] Dr. Dwight Waters MCH (RBC) [Entitic mass] 28.6 pg Normal 25.9-34.0 [facility] Comment on above: Performed By: #### C BC #### [facility] [address] [place] [address] Dr. Dwight Waters MCHC (RBC) [Mass/Vol] 32.9 g/dL Normal 29.9-35.2 [facility] Comment on above: Performed By: #### C BC #### [facility] [address] [place] [address] Dr. Dwight Waters MCV (RBC) [Entitic vol] 86.9 fL Normal 80.0-94.0 [facility] Comment on above: Performed By: #### C BC #### [facility] [address] [place] [address] Dr. Dwight Waters MONO # 0.6 103/ul Normal 0.3-0.8 [facility] Comment on above: Performed By: #### C BC #### [facility] [address] [place] [address] Dr. Dwight Waters Monocytes/100 WBC (Bld) 10.6 % Normal 1.7-12.0 [facility] Comment on above: Performed By: #### C BC #### [facility] [address] [place] [address] Dr. Dwight Waters NEUT # 2.5 103/ul Normal 1.4-6.5 [facility] Comment on above: Performed By: #### C BC #### [facility] [address] [place] [address] Dr. Dwight Waters Neutrophils/100 WBC (Bld) 45.4 % Normal 43.0-75.0 [facility] Comment on above: Performed By: #### C BC #### [facility] [address] [place] [address] Dr. Dwight Waters Platelet mean volume (Bld) [Entitic vol] 9.3 fL Critically low 9.5-13.5 [facility] Comment on above: Performed By: #### C BC #### [facility] [address] [place] [address] Dr. Dwight Waters PLT 248 103/ul Normal 150-450 [facility] Comment on above: Performed By: #### C BC #### [facility] [address] [place] [address] Dr. Dwight Waters RBC 5.73 106/ul Normal 4.70-6.10 [facility] Comment on above: Performed By: #### C BC #### [facility] [address] [place] [address] Dr. Dwight Waters WBC 5.5 103/ul Normal 4.0-11.0 [facility] Comment on above: Performed By: #### C BC #### [facility] [address] [place] [address] Dr. Dwight Waters CHLORIDEon 04-28-2023 Chloride [Moles/Vol] 107 mmol/L Normal 98-107 [facility] Comment on above: Performed By: #### U RTPCR #### [facility] [address] [place] [address] Dr. Dwight Waters CO2on 04-28-2023 CO2 [Moles/Vol] 28.9 mmol/L Normal 21.0-32.0 [facility] Comment on above: Performed By: #### U RTPCR #### [facility] [address] [place] [address] Dr. Dwight Waters CREATININEon 04-28-2023 Creatinine [Mass/Vol] 1.17 mg/dL Normal 0.70-1.30 [facility] Comment on above: Performed By: #### U RTPCR #### [facility] [address] [place] [address] Dr. Dwight Waters EGFR-AF SERBIAN >60 Normal >=60 [facility] Comment on above: Performed By: #### U RTPCR #### [facility] [address] [place] [address] Dr. Dwight Waters EGFR-NON AF SERBIAN >60 Normal >=60 [facility] Comment on above: Performed By: #### U RTPCR #### [facility] [address] [place] [address] Dr. Dwight Waters GGTon 04-28-2023 Gamma glutamyl transferase [Catalytic activity/Vol] 27 U/L Normal 15-85 [facility] Comment on above: Performed By: #### U RTPCR #### [facility] [address] [place] [address] Dr. Dwight Waters GLUCOSE BLOODon 04-28-2023 Glucose [Mass/Vol] 110 mg/dL Critically high 74-106 [facility] Comment on above: Performed By: #### U RTPCR #### [facility] [address] [place] [address] Dr. Dwight Waters MAGNESIUMon 04-28-2023 Magnesium [Mass/Vol] 1.7 mg/dL Critically low 1.8-2.4 [facility] Comment on above: Performed By: #### U RTPCR #### [facility] [address] [place] [address] Dr. Dwight Waters NAon 04-28-2023 Sodium [Moles/Vol] 144 mmol/L Normal 136-145 [facility] Comment on above: Performed By: #### U RTPCR #### [facility] [address] [place] [address] Dr. Dwight Waters PHOSPHORUSon 04-28-2023 Phosphate [Mass/Vol] 3.2 mg/dL Normal 2.6-4.7 [facility] Comment on above: Performed By: #### U RTPCR #### [facility] [address] [place] [address] Dr. Dwight Waters POTASSIUMon 04-28-2023 Potassium [Moles/Vol] 4.0 mmol/L Normal 3.5-5.1 [facility] Comment on above: Performed By: #### U RTPCR #### [facility] [address] [place] [address] Dr. Dwight Waters SGOTon 04-28-2023 AST [Catalytic activity/Vol] 25 U/L Normal 15-37 [facility] Comment on above: Performed By: #### C MP #### [facility] [address] [place] [address] Dr. Dwight Waters SGPTon 04-28-2023 ALT [Catalytic activity/Vol] 40 U/L Normal 16-63 [facility] Comment on above: Performed By: #### C MP #### [facility] [address] [place] [address] Dr. Dwight Waters URINE T PROTEIN CREAT RATIOo 04-28-2023 Protein (U) [Mass/Vol] 10.1 mg/dL Normal <=12.0 [facility] Comment on above: Performed By: #### U RTPCR #### [facility] [address] [place] [address] Dr. Dwight Waters UR PROT CREAT RAT 0.14 Normal [facility] Comment on above: Performed By: #### U RTPCR #### [facility] [address] [place] [address] Dr. Dwight Waters URINE CREAT 74.40 mg/dL Normal 20.00-300.00 [facility] Comment on above: Performed By: #### U RTPCR #### [facility] [address] [place] [address] Dr. Dwight Waters Office Visiton 04-13-2023 Follow-up visit [id number] George Styles 1970 M Date Provider Department Center 04/13/2023 MIGUEL PARADA [facility] Family History Problem Relation Age of Onset Coronary artery disease Mother Coronary artery disease Father Family Status - Relation Status Age at Mother Father Level of Service:78449 UT OFFICE/OUTPATIENT ESTABLISHED LOW MDM 20-29 MIN Reason for Visit and Comments: Hypertension [185850] Hyperlipidemia [182] Normal [facility] BK VIRUS PCR QUANTon 023 BKV DNA QUANT PCR PLASMA Negative Normal Negative [facility] Comment on above: Result Comment: No B K DNA detected. . The linear range of the assay is 22 - 100,000,000 IU/mL. Performed By: #### B KVIRUS #### [facility] [address] [place] [address] Dr. Dwight Waters Log10 BKV DNA Plasma Normal [facility] Comment on above: Performed By: #### B KVIRUS #### [facility] [address] [place] [address] Dr. Dwight Waters FK506 (TACROLIMUS) WHOLE BLO ODon 03-04-2023 Tacrolimus (FK506), Blood 5.9 ng/mL Normal 2.0-20.0 [facility] Comment on above: Result Comment: Trou gh (immediately following transplant) 15.0 . Trough (steady state, 2 weeks or more after transplant): 3.0 - 8.0 . Performed by LC-MS/MS technology. Performed By: #### C MP #### [facility] [address] [place] [address] Dr. Dwight Waters ALBUMINon 03-02-2023 Albumin [Mass/Vol] 3.9 g/dL Normal 3.4-5.0 [facility] Comment on above: Performed By: #### U RTPCR #### [facility] [address] [place] [address] Dr. Dwight Waters ALKALINE PHOSPHAon ALP [Catalytic activity/Vol] 105 U/L Normal 46-116 [facility] Comment on above: Performed By: #### U RTPCR #### [facility] [address] [place] [address] Dr. Dwight Waters BILIRUBIN CONJUGATED (DIRECT )on 03-02-2023 BILI, CONJUGATED 0.2 mg/dL Normal 0.0-0.2 [facility] Comment on above: Performed By: #### U RTPCR #### [facility] [address] [place] [address] Dr. Dwight Waters BILIRUBIN TOTALon 03-02-2023 Bilirubin [Mass/Vol] 0.9 mg/dL Normal 0.2-1.0 [facility] Comment on above: Performed By: #### U RTPCR #### [facility] [address] [place] [address] Dr. Dwight Waters CBC AUTO DIFFon 03-02-2023 BASO # 0.1 103/ul Normal 0.0-0.1 [facility] Comment on above: Performed By: #### C BC #### [facility] [address] [place] [address] Dr. Dwight Waters Basophils/100 WBC (Bld) 0.9 % Normal 0.2-2.0 [facility] Comment on above: Performed By: #### C BC #### [facility] [address] [place] [address] Dr. Dwight Waters EO # 0.2 103/ul Normal 0.0-0.7 [facility] Comment on above: Performed By: #### C BC #### [facility] [address] [place] [address] Dr. Dwight Waters Eosinophils/100 WBC (Bld) 3.5 % Normal 0.9-7.0 [facility] Comment on above: Performed By: #### C BC #### [facility] [address] [place] [address] Dr. Dwight Waters Erythrocyte distribution width (RBC) [Ratio] 12.7 % Normal 11.0-15.0 [facility] Comment on above: Performed By: #### C BC #### [facility] [address] [place] [address] Dr. Dwight Waters Hematocrit (Bld) [Volume fraction] 48.2 % Normal 42.0-54.0 [facility] Comment on above: Performed By: #### C BC #### [facility] [address] [place] [address] Dr. Dwight Waters Hemoglobin (Bld) [Mass/Vol] 15.9 g/dL Normal 14.0-18.0 [facility] Comment on above: Performed By: #### C BC #### [facility] [address] [place] [address] Dr. Dwight Waters IG # 0.01 10e3/ul Normal 0.00-0.03 [facility] Comment on above: Performed By: #### C BC #### [facility] [address] [place] [address] Dr. Dwight Waters IG % 0.2 % Normal 0.0-0.5 [facility] Comment on above: Performed By: #### C BC #### [facility] [address] [place] [address] Dr. Dwight Waters LYMPH # 2.1 103/ul Normal 1.2-3.8 [facility] Comment on above: Performed By: #### C BC #### [facility] [address] [place] [address] Dr. Dwight Waters Lymphocytes/100 WBC (Bld) 37.4 % Normal 20.5-60.0 [facility] Comment on above: Performed By: #### C BC #### [facility] [address] [place] [address] Dr. Dwight Waters MANUAL DIFF REQ NO [facility] Comment on above: Performed By: #### C BC #### [facility] [address] [place] [address] Dr. Dwight Waters MCH (RBC) [Entitic mass] 28.3 pg Normal 25.9-34.0 [facility] Comment on above: Performed By: #### C BC #### [facility] [address] [place] [address] Dr. Dwight Waters MCHC (RBC) [Mass/Vol] 33.0 g/dL Normal 29.9-35.2 [facility] Comment on above: Performed By: #### C BC #### [facility] [address] [place] [address] Dr. Dwight Waters MCV (RBC) [Entitic vol] 85.8 fL Normal 80.0-94.0 [facility] Comment on above: Performed By: #### C BC #### [facility] [address] [place] [address] Dr. Dwight Waters MONO # 0.6 103/ul Normal 0.3-0.8 [facility] Comment on above: Performed By: #### C BC #### [facility] [address] [place] [address] Dr. Dwight Waters Monocytes/100 WBC (Bld) 10.2 % Normal 1.7-12.0 [facility] Comment on above: Performed By: #### C BC #### [facility] [address] [place] [address] Dr. Dwight Waters NEUT # 2.7 103/ul Normal 1.4-6.5 [facility] Comment on above: Performed By: #### C BC #### [facility] [address] [place] [address] Dr. Dwight Waters Neutrophils/100 WBC (Bld) 47.8 % Normal 43.0-75.0 [facility] Comment on above: Performed By: #### C BC #### [facility] [address] [place] [address] Dr. Dwight Waters Platelet mean volume (Bld) [Entitic vol] 9.3 fL Critically low 9.5-13.5 [facility] Comment on above: Performed By: #### C BC #### [facility] [address] [place] [address] Dr. Dwight Waters PLT 241 103/ul Normal 150-450 [facility] Comment on above: Performed By: #### C BC #### [facility] [address] [place] [address] Dr. Dwight Waters RBC 5.62 106/ul Normal 4.70-6.10 [facility] Comment on above: Performed By: #### C BC #### [facility] [address] [place] [address] Dr. Dwight Waters WBC 5.7 103/ul Normal 4.0-11.0 [facility] Comment on above: Performed By: #### C BC #### [facility] [address] [place] [address] Dr. Dwight Waters GGTon 03-02-2023 Gamma glutamyl transferase [Catalytic activity/Vol] 25 U/L Normal 15-85 [facility] Comment on above: Performed By: #### U RTPCR #### [facility] [address] [place] [address] Dr. Dwight Waters MAGNESIUMon 04-03-2023 Magnesium [Mass/Vol] 1.6 mg/dL Critically low 1.8-2.4 [facility] Comment on above: Performed By: #### U RTPCR #### [facility] [address] [place] [address] Dr. Dwight Waters PHOSPHORUSon 03-02-2023 Phosphate [Mass/Vol] 3.6 mg/dL Normal 2.6-4.7 [facility] Comment on above: Performed By: #### U RTPCR #### [facility] [address] [place] [address] Dr. Dwight Waters PROF CHEM 8 (BAS METB)on Anion gap [Moles/Vol] 9.4 mmol/L Normal [facility] Comment on above: Performed By: #### U RTPCR #### [facility] [address] [place] [address] Dr. Dwight Waters Calcium [Mass/Vol] 9.3 mg/dL Normal 8.5-10.1 [facility] Comment on above: Performed By: #### U RTPCR #### [facility] [address] [place] [address] Dr. Dwight Waters Chloride [Moles/Vol] 108 mmol/L Critically high 98-107 [facility] Comment on above: Performed By: #### U RTPCR #### [facility] [address] [place] [address] Dr. Dwight Waters CO2 [Moles/Vol] 27.2 mmol/L Normal 21.0-32.0 [facility] Comment on above: Performed By: #### U RTPCR #### [facility] [address] [place] [address] Dr. Dwight Waters Creatinine [Mass/Vol] 1.12 mg/dL Normal 0.70-1.30 [facility] Comment on above: Performed By: #### U RTPCR #### [facility] [address] [place] [address] Dr. Dwight Waters EGFR-AF SERBIAN >60 Normal >=60 [facility] Comment on above: Performed By: #### U RTPCR #### [facility] [address] [place] [address] Dr. Dwight Waters EGFR-NON AF SERBIAN >60 Normal >=60 [facility] Comment on above: Performed By: #### U RTPCR #### [facility] [address] [address] [address] Dwight Waters Glucose [Mass/Vol] 113 mg/dL Critically high 74-106 [facility] Comment on above: Performed By: #### U RTPCR #### [facility] [address] [address] [address] Dwight Waters Potassium [Moles/Vol] 3.6 mmol/L Normal 3.5-5.1 [facility] Comment on above: Performed By: #### U RTPCR #### [facility] [address] [place] [address] Dr. Dwight Waters Sodium [Moles/Vol] 141 mmol/L Normal 136-145 [facility] Comment on above: Performed By: #### U RTPCR #### [facility] [address] [place] [address] Dr. Dwight Waters Urea nitrogen [Mass/Vol] 14.0 mg/dL Normal 7.0-18.0 [facility] Comment on above: Performed By: #### U RTPCR #### [facility] [address] [place] [address] Dr. Dwight Waters Urea nitrogen/Creatinine [Mass ratio] 12.5 mg/mg Normal [facility] Comment on above: Performed By: #### U RTPCR #### [facility] [address] [place] [address] Dr. Dwight Waters SGOTon 03-02-2023 AST [Catalytic activity/Vol] 20 U/L Normal 15-37 [facility] Comment on above: Performed By: #### U RTPCR #### [facility] [address] [place] [address] Dr. Dwight Waters SGPTon 03-02-2023 ALT [Catalytic activity/Vol] 30 U/L Normal 16-63 [facility] Comment on above: Performed By: #### U RTPCR #### [facility] [address] [place] [address] Dr. Dwight Waters URINE T PROTEIN CREAT RATIOo n 03-02-2023 Protein (U) [Mass/Vol] 10.3 mg/dL Normal <=12.0 [facility] Comment on above: Performed By: #### U RTPCR #### [facility] [address] [place] [address] Dr. Dwight Waters UR PROT CREAT RAT 0.15 Normal [facility] Comment on above: Performed By: #### U RTPCR #### [facility] [address] [place] [address] Dr. Dwight Waters URINE CREAT 68.96 mg/dL Normal 20.00-300.00 [facility] Comment on above: Performed By: #### U RTPCR #### [facility] [address] [place] [address] Dr. Dwight Waters BK VIRUS PCR QUANTon 023 BKV DNA QUANT PCR PLASMA Negative Normal Negative [facility] Comment on above: Result Comment: No B K DNA detected. . The linear range of the assay is 22 - 100,000,000 IU/mL. Performed By: #### C MP #### [facility] [address] [place] [address] Dr. Dwight Waters Log10 BKV DNA Plasma Normal [facility] Comment on above: Performed By: #### C MP #### [facility] [address] [place] [address] Dr. Dwight Waters FK506 (TACROLIMUS) WHOLE BLO ODon 12-31-2022 Tacrolimus (FK506), Blood 5.6 ng/mL Normal 2.0-20.0 [facility] Comment on above: Result Comment: Trou gh (immediately following transplant) 15.0 . Trough (steady state, 2 weeks or more after transplant): 3.0 - 8.0 . Performed by LC-MS/MS technology. Performed By: #### C MP #### [facility] [address] [place] [address] Dr. Dwight Waters ALKALINE PHOSPHAon ALP [Catalytic activity/Vol] 96 U/L Normal 46-116 [facility] Comment on above: Performed By: #### C BC #### [facility] [address] [place] [address] Dr. Dwight Waters BILIRUBIN CONJUGATED (DIRECT )on 12-29-2022 BILI, CONJUGATED 0.3 mg/dL Critically high 0.0-0.2 [facility] Comment on above: Performed By: #### C BC #### [facility] [address] [place] [address] Dr. Dwight Waters BILIRUBIN TOTALon 12-29-2022 Bilirubin [Mass/Vol] 1.1 mg/dL Critically high 0.2-1.0 [facility] Comment on above: Performed By: #### C BC #### [facility] [address] [place] [address] Dr. Dwight Waters CBC AUTO DIFFon 12-29-2022 BASO # 0.1 103/ul Normal 0.0-0.1 [facility] Comment on above: Performed By: #### C MP #### [facility] [address] [place] [address] Dr. Dwight Waters Basophils/100 WBC (Bld) 0.8 % Normal 0.2-2.0 [facility] Comment on above: Performed By: #### C MP #### [facility] [address] [place] [address] Dr. Dwight Waters EO # 0.2 103/ul Normal 0.0-0.7 [facility] Comment on above: Performed By: #### C MP #### [facility] [address] [place] [address] Dr. Dwight Waters Eosinophils/100 WBC (Bld) 3.0 % Normal 0.9-7.0 [facility] Comment on above: Performed By: #### C MP #### [facility] [address] [place] [address] Dr. Dwight Waters Erythrocyte distribution width (RBC) [Ratio] 12.9 % Normal 11.0-15.0 [facility] Comment on above: Performed By: #### C MP #### [facility] [address] [place] [address] Dr. Dwight Waters Hematocrit (Bld) [Volume fraction] 46.9 % Normal 42.0-54.0 [facility] Comment on above: Performed By: #### C MP #### [facility] [address] [place] [address] Dr. Dwight Waters Hemoglobin (Bld) [Mass/Vol] 16.1 g/dL Normal 14.0-18.0 [facility] Comment on above: Performed By: #### C MP #### [facility] [address] [place] [address] Dr. Dwight Waters IG # 0.01 10e3/ul Normal 0.00-0.03 [facility] Comment on above: Performed By: #### C MP #### [facility] [address] [place] [address] Dr. Dwight Waters IG % 0.2 % Normal 0.0-0.5 [facility] Comment on above: Performed By: #### C MP #### [facility] [address] [place] [address] Dr. Dwight Waters LYMPH # 1.8 103/ul Normal 1.2-3.8 [facility] Comment on above: Performed By: #### C MP #### [facility] [address] [place] [address] Dr. Dwight Waters Lymphocytes/100 WBC (Bld) 27.9 % Normal 20.5-60.0 [facility] Comment on above: Performed By: #### C MP #### [facility] [address] [place] [address] Dr. Dwight Waters MANUAL DIFF REQ NO [facility] Comment on above: Performed By: #### C MP #### [facility] [address] [place] [address] Dr. Dwight Waters MCH (RBC) [Entitic mass] 28.5 pg Normal 25.9-34.0 [facility] Comment on above: Performed By: #### C MP #### [facility] [address] [place] [address] Dr. Dwight Waters MCHC (RBC) [Mass/Vol] 34.3 g/dL Normal 29.9-35.2 [facility] Comment on above: Performed By: #### C MP #### [facility] [address] [place] [address] Dr. Dwight Waters MCV (RBC) [Entitic vol] 83.2 fL Normal 80.0-94.0 [facility] Comment on above: Performed By: #### C MP #### [facility] [address] [place] [address] Dr. Dwight Waters MONO # 0.5 103/ul Normal 0.3-0.8 [facility] Comment on above: Performed By: #### C MP #### [facility] [address] [place] [address] Dr. Dwight Waters Monocytes/100 WBC (Bld) 8.1 % Normal 1.7-12.0 [facility] Comment on above: Performed By: #### C MP #### [facility] [address] [place] [address] Dr. Dwight Waters NEUT # 3.8 103/ul Normal 1.4-6.5 [facility] Comment on above: Performed By: #### C MP #### [facility] [address] [place] [address] Dr. Dwight Waters Neutrophils/100 WBC (Bld) 60.0 % Normal 43.0-75.0 [facility] Comment on above: Performed By: #### C MP #### [facility] [address] [place] [address] Dr. Dwight Waters Platelet mean volume (Bld) [Entitic vol] 9.2 fL Critically low 9.5-13.5 [facility] Comment on above: Performed By: #### C MP #### [facility] [address] [place] [address] Dr. Dwight Waters PLT 225 103/ul Normal 150-450 [facility] Comment on above: Performed By: #### C MP #### [facility] [address] [place] [address] Dr. Dwight Waters RBC 5.64 106/ul Normal 4.70-6.10 [facility] Comment on above: Performed By: #### C MP #### [facility] [address] [address] [address] Dwight Waters WBC 6.3 103/ul Normal 4.0-11.0 [facility] Comment on above: Performed By: #### C MP #### [facility] [address] [address] [address] Dwight Waters GGTon 12-29-2022 Gamma glutamyl transferase [Catalytic activity/Vol] 24 U/L Normal 15-85 [facility] Comment on above: Performed By: #### C MP #### [facility] [address] [address] [address] Dwight Waters LIPID PROFILEon 12-29-2022 CHOL-HDL RATIO NORM SEE BELOW Normal [facility] Comment on above: Result Comment: 3.3 - 4.4 LOW RISK 4.4 - 7.1 AVERAGE RISK 7.1 - 11.0 MODERATE RISK >11.0 HIGH RISK Performed By: #### U RTPCR #### [facility] [address] [place] [address] Dr. Dwight Waters Cholesterol [Mass/Vol] 87 mg/dL Normal <=200 [facility] Comment on above: Performed By: #### U RTPCR #### [facility] [address] [place] [address] Dr. Dwight Waters Cholesterol in HDL [Mass/Vol] 44 mg/dL Normal 40-60 [facility] Comment on above: Performed By: #### U RTPCR #### [facility] [address] [address] [address] Dwight Waters Cholesterol in LDL [Mass/Vol] 33.0 mg/dL Normal [facility] Comment on above: Performed By: #### U RTPCR #### [facility] [address] [place] [address] Dr. Dwight Waters Cholesterol.total/Cho lesterol in HDL [Mass ratio] 2.0 {ratio} Normal [facility] Comment on above: Performed By: #### U RTPCR #### [facility] [address] [place] [address] Dr. Dwight Waters HDL NORMAL > or = 60 mg/dl - LO W CARDIOVASCULAR RISK <40 mg/dl - HIGH CARDIOVASCULAR RISK Normal [facility] Comment on above: Performed By: #### U RTPCR #### [facility] [address] [address] [address] Dwight Waters LDL CALC NORMAL SEE BELOW Normal [facility] Comment on above: Result Comment: <100 mg/dl OPTIMAL 100 - 129 mg/dl NEAR OR ABOVE OPTIMAL 130 - 159 mg/dl BORDERLINE HIGH 160 - 189 mg/dl HIGH >190 mg/dl VERY HIGH Performed By: #### U RTPCR #### [facility] [address] [address] [address] Dwight Waters Triglyceride [Mass/Vol] 50 mg/dL Normal <=150 [facility] Comment on above: Performed By: #### U RTPCR #### [facility] [address] [address] [address] Dwight Waters VLDL CALC 10.0 mg/dL Normal [facility] Comment on above: Performed By: #### U RTPCR #### [facility] [address] [address] [address] Dwight Waters MAGNESIUMon 12-29-2022 Magnesium [Mass/Vol] 1.6 mg/dL Critically low 1.8-2.4 [facility] Comment on above: Performed By: #### C BC #### [facility] [address] [address] [address] Dwight Waters RENAL FUNCTION PANELon 12-29 Albumin [Mass/Vol] 3.9 g/dL Normal 3.4-5.0 [facility] Comment on above: Performed By: #### C BC #### [facility] [address] [address] [address] Dwight Waters Calcium [Mass/Vol] 9.2 mg/dL Normal 8.5-10.1 [facility] Comment on above: Performed By: #### C BC #### [facility] [address] [address] [address] Dwight Waters Chloride [Moles/Vol] 109 mmol/L Critically high 98-107 [facility] Comment on above: Performed By: #### C BC #### [facility] [address] [address] [address] Dwight Waters CO2 [Moles/Vol] 27.0 mmol/L Normal 21.0-32.0 [facility] Comment on above: Performed By: #### C BC #### [facility] [address] [address] [address] Dwight Waters Creatinine [Mass/Vol] 1.02 mg/dL Normal 0.70-1.30 [facility] Comment on above: Performed By: #### C BC #### [facility] [address] [address] [address] Dwight Waters EGFR-AF SERBIAN >60 Normal >=60 [facility] Comment on above: Performed By: #### C BC #### [facility] [address] [place] [address] Dr. Dwight Waters EGFR-NON AF SERBIAN >60 Normal >=60 [facility] Comment on above: Performed By: #### C BC #### [facility] [address] [address] [address] Dwight Waters Glucose [Mass/Vol] 117 mg/dL Critically high 74-106 [facility] Comment on above: Performed By: #### C BC #### [facility] [address] [place] [address] Dr. Dwight Waters Phosphate [Mass/Vol] 3.2 mg/dL Normal 2.6-4.7 [facility] Comment on above: Performed By: #### C BC #### [facility] [address] [place] [address] Dr. Dwight Waters Potassium [Moles/Vol] 4.1 mmol/L Normal 3.5-5.1 [facility] Comment on above: Performed By: #### C BC #### [facility] [address] [address] [address] Dwight Waters Sodium [Moles/Vol] 144 mmol/L Normal 136-145 [facility] Comment on above: Performed By: #### C BC #### [facility] [address] [place] [address] Dr. Dwight Waters Urea nitrogen [Mass/Vol] 13.0 mg/dL Normal 7.0-18.0 [facility] Comment on above: Performed By: #### C BC #### [facility] [address] [place] [address] Dr. Dwight Waters SGOTon 12-29-2022 AST [Catalytic activity/Vol] 21 U/L Normal 15-37 [facility] Comment on above: Performed By: #### C BC #### [facility] [address] [place] [address] Dr. Dwight Waters SGPTon 12-29-2022 ALT [Catalytic activity/Vol] 32 U/L Normal 16-63 [facility] Comment on above: Performed By: #### C BC #### [facility] [address] [place] [address] Dr. Dwight Waters URINE T PROTEIN CREAT RATIOo n 12-29-2022 Protein (U) [Mass/Vol] 14.3 mg/dL Critically high <=12.0 [facility] Comment on above: Performed By: #### U RTPCR #### [facility] [address] [place] [address] Dr. Dwight Waters UR PROT CREAT RAT 0.17 Normal [facility] Comment on above: Performed By: #### U RTPCR #### [facility] [address] [place] [address] Dr. Dwight Waters URINE CREAT 86.58 mg/dL Normal 20.00-300.00 [facility] Comment on above: Performed By: #### U RTPCR #### [facility] [address] [place] [address] Dr. Dwight Waters FK506 (TACROLIMUS) WHOLE BLO ODon 11-06-2022 Tacrolimus (FK506), Blood 4.9 ng/mL Normal 2.0-20.0 [facility] Comment on above: Result Comment: Trou gh (immediately following transplant) 15.0 . Trough (steady state, 2 weeks or more after transplant): 3.0 - 8.0 . Performed by LC-MS/MS technology. Performed By: #### U RTPCR #### [facility] [address] [place] [address] Dr. Dwight Waters ALKALINE PHOSPHAon ALP [Catalytic activity/Vol] 86 U/L Normal 46-116 [facility] Comment on above: Performed By: #### U RTPCR #### [facility] [address] [place] [address] Dr. Dwight Waters BILIRUBIN CONJUGATED (DIRECT )on 11-04-2022 BILI, CONJUGATED 0.2 mg/dL Normal 0.0-0.2 [facility] Comment on above: Performed By: #### U RTPCR #### [facility] [address] [place] [address] Dr. Dwight Waters BILIRUBIN TOTALon 11-04-2022 Bilirubin [Mass/Vol] 0.8 mg/dL Normal 0.2-1.0 [facility] Comment on above: Performed By: #### U RTPCR #### [facility] [address] [place] [address] Dr. Dwight Waters CBC AUTO DIFFon 11-04-2022 BASO # 0.1 103/ul Normal 0.0-0.1 [facility] Comment on above: Performed By: #### U RTPCR #### [facility] [address] [place] [address] Dr. Dwight Waters Basophils/100 WBC (Bld) 0.9 % Normal 0.2-2.0 [facility] Comment on above: Performed By: #### U RTPCR #### [facility] [address] [place] [address] Dr. Dwight Waters EO # 0.2 103/ul Normal 0.0-0.7 [facility] Comment on above: Performed By: #### U RTPCR #### [facility] [address] [place] [address] Dr. Dwight Waters Eosinophils/100 WBC (Bld) 3.7 % Normal 0.9-7.0 [facility] Comment on above: Performed By: #### U RTPCR #### [facility] [address] [place] [address] Dr. Dwight Waters Erythrocyte distribution width (RBC) [Ratio] 12.9 % Normal 11.0-15.0 [facility] Comment on above: Performed By: #### U RTPCR #### [facility] [address] [place] [address] Dr. Dwight Waters Hematocrit (Bld) [Volume fraction] 48.3 % Normal 42.0-54.0 [facility] Comment on above: Performed By: #### U RTPCR #### [facility] [address] [place] [address] Dr. Dwight Waters Hemoglobin (Bld) [Mass/Vol] 15.6 g/dL Normal 14.0-18.0 [facility] Comment on above: Performed By: #### U RTPCR #### [facility] [address] [place] [address] Dr. Dwight Waters IG # 0.01 10e3/ul Normal 0.00-0.03 [facility] Comment on above: Performed By: #### U RTPCR #### [facility] [address] [place] [address] Dr. Dwight Waters IG % 0.2 % Normal 0.0-0.5 [facility] Comment on above: Performed By: #### U RTPCR #### [facility] [address] [place] [address] Dr. Dwight Waters LYMPH # 1.9 103/ul Normal 1.2-3.8 [facility] Comment on above: Performed By: #### U RTPCR #### [facility] [address] [place] [address] Dr. Dwight Waters Lymphocytes/100 WBC (Bld) 33.0 % Normal 20.5-60.0 [facility] Comment on above: Performed By: #### U RTPCR #### [facility] [address] [place] [address] Dr. Dwight Waters MANUAL DIFF REQ NO Normal [facility] Comment on above: Performed By: #### U RTPCR #### [facility] [address] [place] [address] Dr. Dwight Waters MCH (RBC) [Entitic mass] 27.6 pg Normal 25.9-34.0 [facility] Comment on above: Performed By: #### U RTPCR #### [facility] [address] [address] [address] Dwight Waters MCHC (RBC) [Mass/Vol] 32.3 g/dL Normal 29.9-35.2 [facility] Comment on above: Performed By: #### U RTPCR #### [facility] [address] [address] [address] Dwight Waters MCV (RBC) [Entitic vol] 85.5 fL Normal 80.0-94.0 [facility] Comment on above: Performed By: #### U RTPCR #### [facility] [address] [place] [address] Dr. Dwight Waters MONO # 0.5 103/ul Normal 0.3-0.8 [facility] Comment on above: Performed By: #### U RTPCR #### [facility] [address] [place] [address] Dr. Dwight Waters Monocytes/100 WBC (Bld) 8.8 % Normal 1.7-12.0 [facility] Comment on above: Performed By: #### U RTPCR #### [facility] [address] [place] [address] Dr. Dwight Waters NEUT # 3.1 103/ul Normal 1.4-6.5 [facility] Comment on above: Performed By: #### U RTPCR #### [facility] [address] [place] [address] Dr. Dwight Waters Neutrophils/100 WBC (Bld) 53.4 % Normal 43.0-75.0 [facility] Comment on above: Performed By: #### U RTPCR #### [facility] [address] [place] [address] Dr. Dwight Waters Platelet mean volume (Bld) [Entitic vol] 9.2 fL Critically low 9.5-13.5 [facility] Comment on above: Performed By: #### U RTPCR #### [facility] [address] [address] [address] Dwight Waters PLT 255 103/ul Normal 150-450 [facility] Comment on above: Performed By: #### U RTPCR #### [facility] [address] [place] [address] Dr. Dwight Waters RBC 5.65 106/ul Normal 4.70-6.10 [facility] Comment on above: Performed By: #### U RTPCR #### [facility] [address] [place] [address] Dr. Dwight Waters WBC 5.7 103/ul Normal 4.0-11.0 [facility] Comment on above: Performed By: #### U RTPCR #### [facility] [address] [place] [address] Dr. Dwight Waters GGTon 11-04-2022 Gamma glutamyl transferase [Catalytic activity/Vol] 22 U/L Normal 15-85 [facility] Comment on above: Performed By: #### U RTPCR #### [facility] [address] [place] [address] Dr. Dwight Waters MAGNESIUMon 11-04-2022 Magnesium [Mass/Vol] 1.8 mg/dL Normal 1.8-2.4 [facility] Comment on above: Performed By: #### U RTPCR #### [facility] [address] [place] [address] Dr. Dwight Waters RENAL FUNCTION PANELon 11-04 Albumin [Mass/Vol] 3.8 g/dL Normal 3.4-5.0 [facility] Comment on above: Performed By: #### U RTPCR #### [facility] [address] [place] [address] Dr. Dwight Waters Calcium [Mass/Vol] 9.3 mg/dL Normal 8.5-10.1 [facility] Comment on above: Performed By: #### U RTPCR #### [facility] [address] [place] [address] Dr. Dwight Waters Chloride [Moles/Vol] 107 mmol/L Normal 98-107 [facility] Comment on above: Performed By: #### U RTPCR #### [facility] [address] [address] [address] Dwight Waters CO2 [Moles/Vol] 29.2 mmol/L Normal 21.0-32.0 [facility] Comment on above: Performed By: #### U RTPCR #### [facility] [address] [address] [address] Dwight Waters Creatinine [Mass/Vol] 1.07 mg/dL Normal 0.70-1.30 [facility] Comment on above: Performed By: #### U RTPCR #### [facility] [address] [place] [address] Dr. Dwight Wtaers EGFR-AF SERBIAN >60 Normal >=60 [facility] Comment on above: Performed By: #### U RTPCR #### [facility] [address] [place] [address] Dr. Dwight Waters EGFR-NON AF SERBIAN >60 Normal >=60 [facility] Comment on above: Performed By: #### U RTPCR #### [facility] [address] [place] [address] Dr. Dwight Waters Glucose [Mass/Vol] 106 mg/dL Normal 74-106 [facility] Comment on above: Performed By: #### U RTPCR #### [facility] [address] [place] [address] Dr. Dwight Waters Phosphate [Mass/Vol] 2.8 mg/dL Normal 2.6-4.7 [facility] Comment on above: Performed By: #### U RTPCR #### [facility] [address] [place] [address] Dr. Dwight Waters Potassium [Moles/Vol] 4.1 mmol/L Normal 3.5-5.1 [facility] Comment on above: Performed By: #### U RTPCR #### [facility] [address] [place] [address] Dr. Dwight Waters Sodium [Moles/Vol] 143 mmol/L Normal 136-145 [facility] Comment on above: Performed By: #### U RTPCR #### [facility] [address] [place] [address] Dr. Dwight Waters Urea nitrogen [Mass/Vol] 12.0 mg/dL Normal 7.0-18.0 [facility] Comment on above: Performed By: #### U RTPCR #### [facility] [address] [place] [address] Dr. Dwight Waters SGOTon 11-04-2022 AST [Catalytic activity/Vol] 19 U/L Normal 15-37 [facility] Comment on above: Performed By: #### U RTPCR #### [facility] [address] [place] [address] Dr. Dwight Waters SGPTon 11-04-2022 ALT [Catalytic activity/Vol] 28 U/L Normal 16-63 [facility] Comment on above: Performed By: #### U RTPCR #### [facility] [address] [place] [address] Dr. Dwight Waters URINE T PROTEIN CREAT RATIOo n 11-04-2022 Protein (U) [Mass/Vol] 10.7 mg/dL Normal <=12.0 [facility] Comment on above: Performed By: #### U RTPCR #### [facility] [address] [place] [address] Dr. Dwight Waters UR PROT CREAT RAT 0.13 Normal [facility] Comment on above: Performed By: #### U RTPCR #### [facility] [address] [place] [address] Dr. Dwight Waters URINE CREAT 84.50 mg/dL Normal 20.00-300.00 [facility] Comment on above: Performed By: #### U RTPCR #### [facility] [address] [place] [address] Dr. Dwight Waters FK506 (TACROLIMUS) WHOLE BLO ODon 09-18-2022 Tacrolimus (FK506), Blood 4.6 ng/mL Normal 2.0-20.0 [facility] Comment on above: Result Comment: Trou gh (immediately following transplant) 15.0 . Trough (steady state, 2 weeks or more after transplant): 3.0 - 8.0 . Performed by LC-MS/MS technology. Performed By: #### U RTPCR #### [facility] [address] [place] [address] Dr. Dwight Waters BK VIRUS PCR QUANTon 022 BKV DNA QUANT PCR PLASMA Negative Normal Negative [facility] Comment on above: Result Comment: No B K DNA detected. . The linear range of the assay is 22 - 100,000,000 IU/mL. Performed By: #### U RTPCR #### [facility] [address] [place] [address] Dr. Dwight Waters Log10 BKV DNA Plasma Normal [facility] Comment on above: Performed By: #### U RTPCR #### [facility] [address] [place] [address] Dr. Dwight Waters ALKALINE PHOSPHAon ALP [Catalytic activity/Vol] 92 U/L Normal 46-116 [facility] Comment on above: Performed By: #### U RTPCR #### [facility] [address] [place] [address] Dr. Dwight Waters BILIRUBIN CONJUGATED (DIRECT )on 09-15-2022 BILI, CONJUGATED 0.3 mg/dL Critically high 0.0-0.2 [facility] Comment on above: Performed By: #### U RTPCR #### [facility] [address] [place] [address] Dr. Dwight Waters BILIRUBIN TOTALon 09-15-2022 Bilirubin [Mass/Vol] 1.1 mg/dL Critically high 0.2-1.0 [facility] Comment on above: Performed By: #### U RTPCR #### [facility] [address] [place] [address] Dr. Dwight Waters CBC AUTO DIFFon 09-15-2022 BASO # 0.1 103/ul Normal 0.0-0.1 [facility] Comment on above: Performed By: #### C BC #### [facility] [address] [place] [address] Dr. Dwight Waters Basophils/100 WBC (Bld) 0.8 % Normal 0.2-2.0 [facility] Comment on above: Performed By: #### C BC #### [facility] [address] [place] [address] Dr. Dwight Waters EO # 0.2 103/ul Normal 0.0-0.7 [facility] Comment on above: Performed By: #### C BC #### [facility] [address] [place] [address] Dr. Dwight Waters Eosinophils/100 WBC (Bld) 3.5 % Normal 0.9-7.0 [facility] Comment on above: Performed By: #### C BC #### [facility] [address] [place] [address] Dr. Dwight Waters Erythrocyte distribution width (RBC) [Ratio] 13.0 % Normal 11.0-15.0 [facility] Comment on above: Performed By: #### C BC #### [facility] [address] [place] [address] Dr. Dwight Waters Hematocrit (Bld) [Volume fraction] 50.0 % Normal 42.0-54.0 [facility] Comment on above: Performed By: #### C BC #### [facility] [address] [place] [address] Dr. Dwight Waters Hemoglobin (Bld) [Mass/Vol] 16.0 g/dL Normal 14.0-18.0 [facility] Comment on above: Performed By: #### C BC #### [facility] [address] [place] [address] Dr. Dwight Waters IG # 0.02 10e3/ul Normal 0.00-0.03 [facility] Comment on above: Performed By: #### C BC #### [facility] [address] [place] [address] Dr. Dwight Waters IG % 0.3 % Normal 0.0-0.5 [facility] Comment on above: Performed By: #### C BC #### [facility] [address] [place] [address] Dr. Dwight Waters LYMPH # 1.8 103/ul Normal 1.2-3.8 [facility] Comment on above: Performed By: #### C BC #### [facility] [address] [place] [address] Dr. Dwight Waters Lymphocytes/100 WBC (Bld) 26.5 % Normal 20.5-60.0 [facility] Comment on above: Performed By: #### C BC #### [facility] [address] [place] [address] Dr. Dwight Waters MANUAL DIFF REQ NO Normal [facility] Comment on above: Performed By: #### C BC #### [facility] [address] [place] [address] Dr. Dwight Waters MCH (RBC) [Entitic mass] 28.1 pg Normal 25.9-34.0 [facility] Comment on above: Performed By: #### C BC #### [facility] [address] [place] [address] Dr. Dwight Waters MCHC (RBC) [Mass/Vol] 32.0 g/dL Normal 29.9-35.2 [facility] Comment on above: Performed By: #### C BC #### [facility] [address] [place] [address] Dr. Dwight Waters MCV (RBC) [Entitic vol] 87.9 fL Normal 80.0-94.0 [facility] Comment on above: Performed By: #### C BC #### [facility] [address] [place] [address] Dr. Dwight Waters MONO # 0.5 103/ul Normal 0.3-0.8 [facility] Comment on above: Performed By: #### C BC #### [facility] [address] [place] [address] Dr. Dwight Waters Monocytes/100 WBC (Bld) 8.1 % Normal 1.7-12.0 [facility] Comment on above: Performed By: #### C BC #### [facility] [address] [place] [address] Dr. Dwight Waters NEUT # 4.0 103/ul Normal 1.4-6.5 [facility] Comment on above: Performed By: #### C BC #### [facility] [address] [place] [address] Dr. Dwight Waters Neutrophils/100 WBC (Bld) 60.8 % Normal 43.0-75.0 [facility] Comment on above: Performed By: #### C BC #### [facility] [address] [place] [address] Dr. Dwight Waters Platelet mean volume (Bld) [Entitic vol] 9.4 fL Critically low 9.5-13.5 [facility] Comment on above: Performed By: #### C BC #### [facility] [address] [place] [address] Dr. Dwight Waters PLT 265 103/ul Normal 150-450 [facility] Comment on above: Performed By: #### C BC #### [facility] [address] [place] [address] Dr. Dwight Waters RBC 5.69 106/ul Normal 4.70-6.10 [facility] Comment on above: Performed By: #### C BC #### [facility] [address] [place] [address] Dr. Dwight Waters WBC 6.6 103/ul Normal 4.0-11.0 [facility] Comment on above: Performed By: #### C BC #### [facility] [address] [place] [address] Dr. Dwight Waters GGTon 09-15-2022 Gamma glutamyl transferase [Catalytic activity/Vol] 23 U/L Normal 15-85 [facility] Comment on above: Performed By: #### U RTPCR #### [facility] [address] [place] [address] Dr. Dwight Waters MAGNESIUMon 09-15-2022 Magnesium [Mass/Vol] 1.8 mg/dL Normal 1.8-2.4 [facility] Comment on above: Performed By: #### U RTPCR #### [facility] [address] [place] [address] Dr. Dwight Waters RENAL FUNCTION PANELon 09-15 Albumin [Mass/Vol] 4.1 g/dL Normal 3.4-5.0 [facility] Comment on above: Performed By: #### C BC #### [facility] [address] [address] [address] Dwight Waters Calcium [Mass/Vol] 9.3 mg/dL Normal 8.5-10.1 [facility] Comment on above: Performed By: #### C BC #### [facility] [address] [address] [address] Dwight Waters Chloride [Moles/Vol] 107 mmol/L Normal 98-107 [facility] Comment on above: Performed By: #### C BC #### [facility] [address] [place] [address] Dr. Dwight Waters CO2 [Moles/Vol] 25.6 mmol/L Normal 21.0-32.0 [facility] Comment on above: Performed By: #### C BC #### [facility] [address] [place] [address] Dr. Dwight Waters Creatinine [Mass/Vol] 1.01 mg/dL Normal 0.70-1.30 [facility] Comment on above: Performed By: #### C BC #### [facility] [address] [place] [address] Dr. Dwight Waters EGFR-AF SERBIAN >60 Normal >=60 [facility] Comment on above: Performed By: #### C BC #### [facility] [address] [place] [address] Dr. Dwight Waters EGFR-NON AF SERBIAN >60 Normal >=60 [facility] Comment on above: Performed By: #### C BC #### [facility] [address] [place] [address] Dr. Dwight Waters Glucose [Mass/Vol] 119 mg/dL Critically high 74-106 [facility] Comment on above: Performed By: #### C BC #### [facility] [address] [place] [address] Dr. Dwight Waters Phosphate [Mass/Vol] 2.8 mg/dL Normal 2.6-4.7 [facility] Comment on above: Performed By: #### C BC #### [facility] [address] [place] [address] Dr. Dwight Waters Potassium [Moles/Vol] 4.0 mmol/L Normal 3.5-5.1 [facility] Comment on above: Performed By: #### C BC #### [facility] [address] [place] [address] Dr. Dwight Waters Sodium [Moles/Vol] 141 mmol/L Normal 136-145 [facility] Comment on above: Performed By: #### C BC #### [facility] [address] [place] [address] Dr. Dwight Waters Urea nitrogen [Mass/Vol] 15.0 mg/dL Normal 7.0-18.0 [facility] Comment on above: Performed By: #### C BC #### [facility] [address] [place] [address] Dr. Dwight Waters SGOTon 09-15-2022 AST [Catalytic activity/Vol] 18 U/L Normal 15-37 [facility] Comment on above: Performed By: #### U RTPCR #### [facility] [address] [place] [address] Dr. Dwight Waters SGPTon 09-15-2022 ALT [Catalytic activity/Vol] 32 U/L Normal 16-63 [facility] Comment on above: Performed By: #### C BC #### [facility] [address] [place] [address] Dr. Dwight Waters URINE T PROTEIN CREAT RATIOo n 09-15-2022 Protein (U) [Mass/Vol] 14.1 mg/dL Critically high <=12.0 [facility] Comment on above: Performed By: #### U RTPCR #### [facility] [address] [place] [address] Dr. Dwight Waters UR PROT CREAT RAT 0.14 Normal [facility] Comment on above: Performed By: #### U RTPCR #### [facility] [address] [place] [address] Dr. Dwight Waters URINE CREAT 98.89 mg/dL Normal 20.00-300.00 [facility] Comment on above: Performed By: #### U RTPCR #### [facility] [address] [address] [address] Dwight Waters US CAROTID ART BILon [...] MÓNICA JIMENEZ Date: 2022-08-28 13:20 Normal [facility] FK506 (TACROLIMUS) WHOLE BLO ODon 08-17-2022 Tacrolimus (FK506), Blood 9.9 ng/mL Normal 2.0-20.0 [facility] Comment on above: Result Comment: Trou gh (immediately following transplant) 15.0 . Trough (steady state, 2 weeks or more after transplant): 3.0 - 8.0 . Performed by LC-MS/MS technology. Performed By: #### F [id number] #### [facility] [address] [place] [address] Dr. Dwight Waters BK VIRUS PCR QUANTon 022 BKV DNA QUANT PCR PLASMA Negative Normal Negative [facility] Comment on above: Result Comment: No B K DNA detected. . The linear range of the assay is 22 - 100,000,000 IU/mL. Performed By: #### U RTPCR #### [facility] [address] [place] [address] Dr. Dwight Waters Log10 BKV DNA Plasma Normal [facility] Comment on above: Performed By: #### U RTPCR #### [facility] [address] [place] [address] Dr. Dwight Waters ALBUMINon 08-14-2022 Albumin [Mass/Vol] 4.2 g/dL Normal 3.4-5.0 [facility] Comment on above: Performed By: #### F [id number] #### [facility] [address] [place] [address] Dr. Dwight Waters ALKALINE PHOSPHAon 2 ALP [Catalytic activity/Vol] 92 U/L Normal 46-116 [facility] Comment on above: Performed By: #### C BC #### [facility] [address] [place] [address] Dr. Dwight Waters BILIRUBIN CONJUGATED (DIRECT )on 08-14-2022 BILI, CONJUGATED 0.3 mg/dL Critically high 0.0-0.2 [facility] Comment on above: Performed By: #### F [id number] #### [facility] [address] [place] [address] Dr. Dwight Waters BILIRUBIN TOTALon 08-14-2022 Bilirubin [Mass/Vol] 1.5 mg/dL Critically high 0.2-1.0 [facility] Comment on above: Performed By: #### F [id number] #### [facility] [address] [place] [address] Dr. Dwight Waters BUNon 08-14-2022 Urea nitrogen [Mass/Vol] 11.0 mg/dL Normal 7.0-18.0 [facility] Comment on above: Performed By: #### C BC #### [facility] [address] [place] [address] Dr. Dwight Waters CALCIUMon 08-14-2022 Calcium [Mass/Vol] 9.4 mg/dL Normal 8.5-10.1 [facility] Comment on above: Performed By: #### F [id number] #### [facility] [address] [place] [address] Dr. Dwight Waters CBC AUTO DIFFon 08-14-2022 BASO # 0.0 103/ul Normal 0.0-0.1 [facility] Comment on above: Performed By: #### C MP #### [facility] [address] [place] [address] Dr. Dwight Waters Basophils/100 WBC (Bld) 0.5 % Normal 0.2-2.0 [facility] Comment on above: Performed By: #### C MP #### [facility] [address] [place] [address] Dr. Dwight Waters EO # 0.2 103/ul Normal 0.0-0.7 [facility] Comment on above: Performed By: #### C MP #### [facility] [address] [place] [address] Dr. Dwight Waters Eosinophils/100 WBC (Bld) 2.6 % Normal 0.9-7.0 [facility] Comment on above: Performed By: #### C MP #### [facility] [address] [place] [address] Dr. Dwight Waters Erythrocyte distribution width (RBC) [Ratio] 13.1 % Normal 11.0-15.0 [facility] Comment on above: Performed By: #### C MP #### [facility] [address] [place] [address] Dr. Dwight Waters Hematocrit (Bld) [Volume fraction] 47.0 % Normal 42.0-54.0 [facility] Comment on above: Performed By: #### C MP #### [facility] [address] [place] [address] Dr. Dwight Waters Hemoglobin (Bld) [Mass/Vol] 15.3 g/dL Normal 14.0-18.0 [facility] Comment on above: Performed By: #### C MP #### [facility] [address] [place] [address] Dr. Dwight Waters IG # 0.01 10e3/ul Normal 0.00-0.03 [facility] Comment on above: Performed By: #### C MP #### [facility] [address] [place] [address] Dr. Dwight Waters IG % 0.1 % Normal 0.0-0.5 [facility] Comment on above: Performed By: #### C MP #### [facility] [address] [place] [address] Dr. Dwight Waters LYMPH # 2.3 103/ul Normal 1.2-3.8 [facility] Comment on above: Performed By: #### C MP #### [facility] [address] [place] [address] Dr. Dwight Waters Lymphocytes/100 WBC (Bld) 29.8 % Normal 20.5-60.0 [facility] Comment on above: Performed By: #### C MP #### [facility] [address] [place] [address] Dr. Dwight Waters MANUAL DIFF REQ NO [facility] Comment on above: Performed By: #### C MP #### [facility] [address] [place] [address] Dr. Dwight Waters MCH (RBC) [Entitic mass] 28.2 pg Normal 25.9-34.0 [facility] Comment on above: Performed By: #### C MP #### [facility] [address] [place] [address] Dr. Dwight Waters MCHC (RBC) [Mass/Vol] 32.6 g/dL Normal 29.9-35.2 [facility] Comment on above: Performed By: #### C MP #### [facility] [address] [place] [address] Dr. Dwight Waters MCV (RBC) [Entitic vol] 86.7 fL Normal 80.0-94.0 [facility] Comment on above: Performed By: #### C MP #### [facility] [address] [place] [address] Dr. Dwight Waters MONO # 0.7 103/ul Normal 0.3-0.8 [facility] Comment on above: Performed By: #### C MP #### [facility] [address] [place] [address] Dr. Dwight Watesr Monocytes/100 WBC (Bld) 8.5 % Normal 1.7-12.0 [facility] Comment on above: Performed By: #### C MP #### [facility] [address] [place] [address] Dr. Dwight Waters NEUT # 4.5 103/ul Normal 1.4-6.5 [facility] Comment on above: Performed By: #### C MP #### [facility] [address] [place] [address] Dr. Dwight Waters Neutrophils/100 WBC (Bld) 58.5 % Normal 43.0-75.0 [facility] Comment on above: Performed By: #### C MP #### [facility] [address] [place] [address] Dr. Dwight Waters Platelet mean volume (Bld) [Entitic vol] 9.7 fL Normal 9.5-13.5 [facility] Comment on above: Performed By: #### C MP #### [facility] [address] [place] [address] Dr. Dwight Waters PLT 266 103/ul Normal 150-450 [facility] Comment on above: Performed By: #### C MP #### [facility] [address] [place] [address] Dr. Dwight Waters RBC 5.42 106/ul Normal 4.70-6.10 [facility] Comment on above: Performed By: #### C MP #### [facility] [address] [place] [address] Dr. Dwight Waters WBC 7.6 103/ul Normal 4.0-11.0 [facility] Comment on above: Performed By: #### C MP #### [facility] [address] [place] [address] Dr. Dwight Waters CHLORIDEon 08-14-2022 Chloride [Moles/Vol] 104 mmol/L Normal 98-107 [facility] Comment on above: Performed By: #### C BC #### [facility] [address] [place] [address] Dr. Dwight Waters CO2on 08-14-2022 CO2 [Moles/Vol] 27.9 mmol/L Normal 21.0-32.0 [facility] Comment on above: Performed By: #### C BC #### [facility] [address] [place] [address] Dr. Dwight Waters CREATININEon 08-14-2022 Creatinine [Mass/Vol] 1.08 mg/dL Normal 0.70-1.30 [facility] Comment on above: Performed By: #### C BC #### [facility] [address] [place] [address] Dr. Dwight Waters EGFR-AF SERBIAN >60 Normal >=60 [facility] Comment on above: Performed By: #### C BC #### [facility] [address] [place] [address] Dr. Dwight Waters EGFR-NON AF SERBIAN >60 Normal >=60 [facility] Comment on above: Performed By: #### C BC #### [facility] [address] [place] [address] Dr. Dwight Waters GGTon 08-14-2022 Gamma glutamyl transferase [Catalytic activity/Vol] 24 U/L Normal 15-85 [facility] Comment on above: Performed By: #### F [id number] #### [facility] [address] [place] [address] Dr. Dwight Waters GLUCOSE BLOODon 08-14-2022 Glucose [Mass/Vol] 111 mg/dL Critically high 74-106 [facility] Comment on above: Performed By: #### C BC #### [facility] [address] [place] [address] Dr. Dwight Waters MAGNESIUMon 08-14-2022 Magnesium [Mass/Vol] 1.4 mg/dL Critically low 1.8-2.4 [facility] Comment on above: Performed By: #### C BC #### [facility] [facility] [address] [place] [address] Dr. Dwight Waters NAon 08-14-2022 Sodium [Moles/Vol] 140 mmol/L Normal 136-145 [facility] Comment on above: Performed By: #### F [id number] #### [facility] [address] [place] [address] Dr. Dwight Waters PHOSPHORUSon 08-14-2022 Phosphate [Mass/Vol] 3.1 mg/dL Normal 2.6-4.7 [facility] Comment on above: Performed By: #### C BC #### [facility] [address] [place] [address] Dr. Dwight Waters POTASSIUMon 08-14-2022 Potassium [Moles/Vol] 3.5 mmol/L Normal 3.5-5.1 [facility] Comment on above: Performed By: #### C BC #### [facility] [address] [place] [address] Dr. Dwight Waters SGOTon 08-14-2022 AST [Catalytic activity/Vol] 17 U/L Normal 15-37 [facility] Comment on above: Performed By: #### F [id number] #### [facility] [address] [place] [address] Dr. Dwight Waters SGPTon 08-14-2022 ALT [Catalytic activity/Vol] 22 U/L Normal 16-63 [facility] Comment on above: Performed By: #### F [id number] #### [facility] [address] [place] [address] Dr. Dwight Waters URINE T PROTEIN CREAT RATIOo n 08-14-2022 Protein (U) [Mass/Vol] 10.7 mg/dL Normal <=12.0 [facility] Comment on above: Performed By: #### F [id number] #### [facility] [address] [place] [address] Dr. Dwight Waters UR PROT CREAT RAT 0.10 Normal [facility] Comment on above: Performed By: #### F K506T #### [facility] [address] [place] [address] Dr. Dwight Waters URINE CREAT 104.28 mg/dL Normal 20.00-300.00 [facility] Comment on above: Performed By: #### F K506T #### [facility] [address] [place] [address] Dr. Dwight Waters NEPHROSTOMY TUBE REMOVALon 0 [...] Assisting physician present for entire procedure: yes [facility] Radiology Study observation (narrative) [facility] FK506 (TACROLIMUS) WHOLE BLO ODon 07-06-2022 Tacrolimus (FK506), Blood 9.5 ng/mL Normal 2.0-20.0 [facility] Comment on above: Result Comment: Trou gh (immediately following transplant) 15.0 . Trough (steady state, 2 weeks or more after transplant): 3.0 - 8.0 . Performed by LC-MS/MS technology. Performed By: #### C MP #### [facility] [address] [place] [address] Dr. Dwight Waters ALBUMINon 07-03-2022 Albumin [Mass/Vol] 3.7 g/dL Normal 3.4-5.0 [facility] Comment on above: Performed By: #### U RTPCR #### [facility] [address] [place] [address] Dr. Dwight Waters ALKALINE PHOSPHAon ALP [Catalytic activity/Vol] 76 U/L Normal 46-116 [facility] Comment on above: Performed By: #### U RTPCR #### [facility] [address] [place] [address] Dr. Dwight Waters BILIRUBIN CONJUGATED (DIRECT )on 07-03-2022 BILI, CONJUGATED 0.3 mg/dL Critically high 0.0-0.2 [facility] Comment on above: Performed By: #### C BC #### [facility] [address] [place] [address] Dr. Dwight Waters BILIRUBIN TOTALon 07-03-2022 Bilirubin [Mass/Vol] 1.4 mg/dL Critically high 0.2-1.0 [facility] Comment on above: Performed By: #### C BC #### [facility] [address] [place] [address] Dr. Dwight Waters BUNon 07-03-2022 Urea nitrogen [Mass/Vol] 15.0 mg/dL Normal 7.0-18.0 [facility] Comment on above: Performed By: #### C BC #### [facility] [address] [place] [address] Dr. Dwight Waters CALCIUMon 07-03-2022 Calcium [Mass/Vol] 9.4 mg/dL Normal 8.5-10.1 [facility] Comment on above: Performed By: #### U RTPCR #### [facility] [address] [place] [address] Dr. Dwight Waters CBC AUTO DIFFon 07-03-2022 BASO # 0.0 103/ul Normal 0.0-0.1 [facility] Comment on above: Performed By: #### U RTPCR #### [facility] [address] [place] [address] Dr. Dwight Waters Basophils/100 WBC (Bld) 0.6 % Normal 0.2-2.0 [facility] Comment on above: Performed By: #### U RTPCR #### [facility] [address] [place] [address] Dr. Dwight Waters EO # 0.2 103/ul Normal 0.0-0.7 [facility] Comment on above: Performed By: #### U RTPCR #### [facility] [address] [place] [address] Dr. Dwight Waters Eosinophils/100 WBC (Bld) 3.5 % Normal 0.9-7.0 [facility] Comment on above: Performed By: #### U RTPCR #### [facility] [address] [place] [address] Dr. Dwight Waters Erythrocyte distribution width (RBC) [Ratio] 12.9 % Normal 11.0-15.0 [facility] Comment on above: Performed By: #### U RTPCR #### [facility] [address] [place] [address] Dr. Dwight Waters Hematocrit (Bld) [Volume fraction] 44.2 % Normal 42.0-54.0 [facility] Comment on above: Performed By: #### U RTPCR #### [facility] [address] [place] [address] Dr. Dwight Waters Hemoglobin (Bld) [Mass/Vol] 14.6 g/dL Normal 14.0-18.0 [facility] Comment on above: Performed By: #### U RTPCR #### [facility] [address] [place] [address] Dr. Dwight Waters IG # 0.02 10e3/ul Normal 0.00-0.03 [facility] Comment on above: Performed By: #### U RTPCR #### [facility] [address] [place] [address] Dr. Dwight Waters IG % 0.3 % Normal 0.0-0.5 [facility] Comment on above: Performed By: #### U RTPCR #### [facility] [address] [place] [address] Dr. Dwight Waters LYMPH # 2.0 103/ul Normal 1.2-3.8 [facility] Comment on above: Performed By: #### U RTPCR #### [facility] [address] [place] [address] Dr. Dwight Waters Lymphocytes/100 WBC (Bld) 28.4 % Normal 20.5-60.0 [facility] Comment on above: Performed By: #### U RTPCR #### [facility] [address] [place] [address] Dr. Dwight Waters MANUAL DIFF REQ NO [facility] Comment on above: Performed By: #### U RTPCR #### [facility] [address] [place] [address] Dr. Dwight Waters MCH (RBC) [Entitic mass] 28.6 pg Normal 25.9-34.0 [facility] Comment on above: Performed By: #### U RTPCR #### [facility] [address] [address] [address] Dwight Waters MCHC (RBC) [Mass/Vol] 33.0 g/dL Normal 29.9-35.2 [facility] Comment on above: Performed By: #### U RTPCR #### [facility] [address] [address] [address] Dwight Waters MCV (RBC) [Entitic vol] 86.7 fL Normal 80.0-94.0 [facility] Comment on above: Performed By: #### U RTPCR #### [facility] [address] [place] [address] Dr. Dwight Waters MONO # 0.6 103/ul Normal 0.3-0.8 [facility] Comment on above: Performed By: #### U RTPCR #### [facility] [address] [place] [address] Dr. Dwight Waters Monocytes/100 WBC (Bld) 9.1 % Normal 1.7-12.0 [facility] Comment on above: Performed By: #### U RTPCR #### [facility] [address] [place] [address] Dr. Dwight Waters NEUT # 4.0 103/ul Normal 1.4-6.5 [facility] Comment on above: Performed By: #### U RTPCR #### [facility] [address] [place] [address] Dr. Dwight Waters Neutrophils/100 WBC (Bld) 58.1 % Normal 43.0-75.0 [facility] Comment on above: Performed By: #### U RTPCR #### [facility] [address] [place] [address] Dr. Dwight Waters Platelet mean volume (Bld) [Entitic vol] 9.5 fL Normal 9.5-13.5 [facility] Comment on above: Performed By: #### U RTPCR #### [facility] [address] [place] [address] Dr. Dwight Waters PLT 292 103/ul Normal 150-450 [facility] Comment on above: Performed By: #### U RTPCR #### [facility] [address] [place] [address] Dr. Dwight Waters RBC 5.10 106/ul Normal 4.70-6.10 [facility] Comment on above: Performed By: #### U RTPCR #### [facility] [address] [place] [address] Dr. Dwight Watesr WBC 6.9 103/ul Normal 4.0-11.0 [facility] Comment on above: Performed By: #### U RTPCR #### [facility] [address] [place] [address] Dr. Dwight Waters CHLORIDEon 07-03-2022 Chloride [Moles/Vol] 108 mmol/L Critically high 98-107 [facility] Comment on above: Performed By: #### C BC #### [facility] [address] [place] [address] Dr. Dwight Waters CO2on 07-03-2022 CO2 [Moles/Vol] 25.2 mmol/L Normal 21.0-32.0 [facility] Comment on above: Performed By: #### C BC #### [facility] [address] [place] [address] Dr. Dwight Waters CREATININEon 07-03-2022 Creatinine [Mass/Vol] 1.03 mg/dL Normal 0.70-1.30 [facility] Comment on above: Performed By: #### U RTPCR #### [facility] [address] [place] [address] Dr. Dwight Waters EGFR-AF SERBIAN >60 Normal >=60 [facility] Comment on above: Performed By: #### U RTPCR #### [facility] [address] [place] [address] Dr. Dwight Waters EGFR-NON AF SERBIAN >60 Normal >=60 [facility] Comment on above: Performed By: #### U RTPCR #### [facility] [address] [place] [address] Dr. Dwight Waters GGTon 07-03-2022 Gamma glutamyl transferase [Catalytic activity/Vol] 31 U/L Normal 15-85 [facility] Comment on above: Performed By: #### U RTPCR #### [facility] [address] [place] [address] Dr. Dwight Waters GLUCOSE BLOODon 07-03-2022 Glucose [Mass/Vol] 119 mg/dL Critically high 74-106 [facility] Comment on above: Performed By: #### U RTPCR #### [facility] [address] [place] [address] Dr. Dwight Waters MAGNESIUMon 07-03-2022 Magnesium [Mass/Vol] 1.4 mg/dL Critically low 1.8-2.4 [facility] Comment on above: Performed By: #### C BC #### [facility] [address] [place] [address] Dr. Dwight Waters NAon 07-03-2022 Sodium [Moles/Vol] 142 mmol/L Normal 136-145 [facility] Comment on above: Performed By: #### C MP #### [facility] [address] [place] [address] Dr. Dwight Waters PHOSPHORUSon 07-03-2022 Phosphate [Mass/Vol] 3.4 mg/dL Normal 2.6-4.7 [facility] Comment on above: Performed By: #### C BC #### [facility] [address] [place] [address] Dr. Dwight Waters POTASSIUMon 07-03-2022 Potassium [Moles/Vol] 4.1 mmol/L Normal 3.5-5.1 [facility] Comment on above: Performed By: #### C BC #### [facility] [address] [place] [address] Dr. Dwight Waters SGOTon 07-03-2022 AST [Catalytic activity/Vol] 14 U/L Critically low 15-37 [facility] Comment on above: Performed By: #### C BC #### [facility] [address] [place] [address] Dr. Dwight Waters SGPTon 07-03-2022 ALT [Catalytic activity/Vol] 25 U/L Normal 16-63 [facility] Comment on above: Performed By: #### C #### [facility] [address] [address] [address] Dwight Waters US KIDNEYSon 07-03-2022 US KIDNEYS Ultrasound kidneys, bilateral HISTORY: Transplant of kidney , pain in the right lower quadrant COMPARISON: None. TECHNIQUE: Transabdominal ultrasound imaging of both kidneys was performed. FINDINGS: The prairie band kidneys are diffusely echogenic and atrophic with cortical thinning. The right kidney measures 8.3 x 3.5 x 4.07 m and the left measures 9.9 x 3.8 x 3.6 cm. No hydronephrosis of the prairie band kidneys. There is a renal transplant in [...] stone involving the renal transplant. 2. Atrophic prairie band kidneys. 3. Normal bladder. Electronically authenticated by: ARCELIA PIZARRO Date: 2022-07-03 17:22 [address] [facility] [address] Abdomen and Pelvis WO con traston 06-27-2022 IMPRESSION: 1. Both prairie band kidneys are atrophic with improvement in right-sided [...] Adrenals: Adrenal glands are unremarkable. Kidneys: Both prairie band kidneys are atrophic. Interval improvement in right prairie band kidney hydronephrosis since May 15, 2022. Status [...] Adrenals: Adrenal glands are unremarkable. Kidneys: Both prairie band kidneys are atrophic. Interval improvement in right prairie band kidney hydronephrosis since May 15, 2022. Status [...] aggressive osseous lesions. IMPRESSION IMPRESSION: 1. Both prairie band kidneys are atrophic with improvement in right-sided hydronephrosis since May 15, 2022. 2. 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 No hydronephrosis. No discrete perinephric collection. 3. Partially imaged postsurgical changes related to prior liver transplant. 4. The bladder is decompressed, limiting evaluation. [facility] Radiology Study observation (narrative) [facility] CT Abdomen and Pelvis WO con trastOrdered By: Gera Lu on 06-27-2022 [facility] Work Phone: CBC AUTO DIFFon 06-18-2022 BASO # 0.0 103/ul Normal 0.0-0.1 [facility] Comment on above: Performed By: #### U RTPCR #### [facility] [address] [place] [address] Dr. Dwight Waters Basophils/100 WBC (Bld) 0.5 % Normal 0.2-2.0 [facility] Comment on above: Performed By: #### U RTPCR #### [facility] [address] [place] [address] Dr. Dwight Waters EO # 0.2 103/ul Normal 0.0-0.7 [facility] Comment on above: Performed By: #### U RTPCR #### [facility] [address] [place] [address] Dr. Dwight Waters Eosinophils/100 WBC (Bld) 2.3 % Normal 0.9-7.0 [facility] Comment on above: Performed By: #### U RTPCR #### [facility] [address] [place] [address] Dr. Dwight Waters Erythrocyte distribution width (RBC) [Ratio] 12.9 % Normal 11.0-15.0 [facility] Comment on above: Performed By: #### U RTPCR #### [facility] [address] [place] [address] Dr. Dwight Waters Hematocrit (Bld) [Volume fraction] 41.2 % Critically low 42.0-54.0 [facility] Comment on above: Performed By: #### U RTPCR #### [facility] [address] [place] [address] Dr. Dwight Waters Hemoglobin (Bld) [Mass/Vol] 13.3 g/dL Critically low 14.0-18.0 [facility] Comment on above: Performed By: #### U RTPCR #### [facility] [address] [place] [address] Dr. Dwight Waters IG # 0.04 10e3/ul Critically high 0.00-0.03 [facility] Comment on above: Performed By: #### U RTPCR #### [facility] [address] [place] [address] Dr. Dwight Waters IG % 0.5 % Normal 0.0-0.5 [facility] Comment on above: Performed By: #### U RTPCR #### [facility] [address] [place] [address] Dr. Dwight Waters LYMPH # 2.0 103/ul Normal 1.2-3.8 [facility] Comment on above: Performed By: #### U RTPCR #### [facility] [address] [place] [address] Dr. Dwight Waters Lymphocytes/100 WBC (Bld) 22.9 % Normal 20.5-60.0 [facility] Comment on above: Performed By: #### U RTPCR #### [facility] [address] [place] [address] Dr. Dwight Waters MANUAL DIFF REQ NO [facility] Comment on above: Performed By: #### U RTPCR #### [facility] [address] [place] [address] Dr. Dwight Waters MCH (RBC) [Entitic mass] 28.7 pg Normal 25.9-34.0 [facility] Comment on above: Performed By: #### U RTPCR #### [facility] [address] [place] [address] Dr. Dwight Waters MCHC (RBC) [Mass/Vol] 32.3 g/dL Normal 29.9-35.2 [facility] Comment on above: Performed By: #### U RTPCR #### [facility] [address] [place] [address] Dr. Dwight Waters MCV (RBC) [Entitic vol] 88.8 fL Normal 80.0-94.0 [facility] Comment on above: Performed By: #### U RTPCR #### [facility] [address] [place] [address] Dr. Dwight Waters MONO # 0.8 103/ul Normal 0.3-0.8 [facility] Comment on above: Performed By: #### U RTPCR #### [facility] [address] [place] [address] Dr. Dwight Waters Monocytes/100 WBC (Bld) 9.7 % Normal 1.7-12.0 [facility] Comment on above: Performed By: #### U RTPCR #### [facility] [address] [place] [address] Dr. Dwight Waters NEUT # 5.6 103/ul Normal 1.4-6.5 [facility] Comment on above: Performed By: #### U RTPCR #### [facility] [address] [place] [address] Dr. Dwight Waters Neutrophils/100 WBC (Bld) 64.1 % Normal 43.0-75.0 [facility] Comment on above: Performed By: #### U RTPCR #### [facility] [address] [place] [address] Dr. Dwight Waters Platelet mean volume (Bld) [Entitic vol] 10.0 fL Normal 9.5-13.5 [facility] Comment on above: Performed By: #### U RTPCR #### [facility] [address] [place] [address] Dr. Dwight Waters PLT 270 103/ul Normal 150-450 [facility] Comment on above: Performed By: #### U RTPCR #### [facility] [address] [place] [address] Dr. Dwight Waters RBC 4.64 106/ul Critically low 4.70-6.10 [facility] Comment on above: Performed By: #### U RTPCR #### [facility] [address] [place] [address] Dr. Dwight Waters WBC 8.7 103/ul Normal 4.0-11.0 [facility] Comment on above: Performed By: #### U RTPCR #### [facility] [address] [place] [address] Dr. Dwight Waters CULTURE URINEon 06-18-2022 CULTURE URINE Culture Observations : NO GROWTH. Normal [facility] Comment on above: Performed By: #### U RTPCR #### [facility] [address] [place] [address] Dr. Dwight Waters [facility] SARS-CoV-2 (COVID-19) RNA ESTELITA+probe Ql (Unsp spec) Not detected Normal NOT DETECTED [facility] Comment on above: Result Comment: When diagnostic [...] for this test is supported by the [place] of [employer] and Human Service's declaration that [...] used). Performed By: #### C BC #### [facility] [address] [place] [address] Dr. Dwight Waters ER URINE PROFILEon 2 Bilirubin Ql (U) Negative Normal NEGATIVE [facility] Comment on above: Performed By: #### U RTPCR #### [facility] [address] [place] [address] Dr. Dwight Waters Clarity (U) CLEAR Normal CLEAR [facility] Comment on above: Performed By: #### U RTPCR #### [facility] [address] [place] [address] Dr. Dwight Waters Color (U) YELLOW Normal YELLOW [facility] Comment on above: Performed By: #### U RTPCR #### [facility] [address] [place] [address] Dr. Dwight SHARMA A micrscopic examination will be performed if indicated. Normal [facility] Comment on above: Performed By: #### U RTPCR #### [facility] [address] [place] [address] Dr. Dwight Waters Glucose Ql (U) Negative Normal NEGATIVE [facility] Comment on above: Performed By: #### U RTPCR #### [facility] [address] [place] [address] Dr. Dwight Waters Hemoglobin Ql (U) LARGE Abnormal NEGATIVE [facility] Comment on above: Performed By: #### U RTPCR #### [facility] [address] [place] [address] Dr. Dwight Waters Ketones Ql (U) Negative Normal NEGATIVE [facility] Comment on above: Performed By: #### U RTPCR #### [facility] [address] [place] [address] Dr. Dwight Waters LEUKOCYTES TRACE Abnormal NEGATIVE [facility] Comment on above: Performed By: #### U RTPCR #### [facility] [address] [place] [address] Dr. Dwight Waters Nitrite Ql (U) Negative Normal NEGATIVE [facility] Comment on above: Performed By: #### U RTPCR #### [facility] [address] [place] [address] Dr. Dwight Waters pH (U) 6.0 [pH] Normal 5-9 [facility] Comment on above: Performed By: #### U RTPCR #### [facility] [address] [place] [address] Dr. Dwight Waters Protein (U) [Mass/Vol] 30 mg/dL Abnormal NEGATIVE/ TRACE [facility] Comment on above: Performed By: #### U RTPCR #### [facility] [address] [place] [address] Dr. Dwight Waters SPEC GRAVITY >=1.030 Abnormal 1.005-<=1.025 [facility] Comment on above: Performed By: #### U RTPCR #### [facility] [address] [place] [address] Dr. Dwight Waters UR MICRO IND INDICATED Normal [facility] Comment on above: Performed By: #### U RTPCR #### [facility] [address] [place] [address] Dr. Dwight Waters Urobilinogen Qn (U) 0.2 {Alyssa'U}/dL Normal 0.2 - 1. 0 [facility] Comment on above: Performed By: #### U RTPCR #### [facility] [address] [place] [address] Dr. Dwight Waters PROF 14(COMP METB)on 022 Albumin [Mass/Vol] 3.7 g/dL Normal 3.4-5.0 [facility] Comment on above: Performed By: #### C MP #### [facility] [address] [place] [address] Dr. Dwight Waters Albumin/Globulin [Mass ratio] 0.9 {ratio} Normal [facility] Comment on above: Performed By: #### C MP #### [facility] [address] [place] [address] Dr. Dwight Waters ALP [Catalytic activity/Vol] 80 U/L Normal 46-116 [facility] Comment on above: Performed By: #### C MP #### [facility] [address] [address] [address] Dwight Waters ALT [Catalytic activity/Vol] 24 U/L Normal 16-63 [facility] Comment on above: Performed By: #### C MP #### [facility] [address] [place] [address] Dr. Dwight Waters Anion gap [Moles/Vol] 12.9 mmol/L Normal [facility] Comment on above: Performed By: #### C MP #### [facility] [address] [place] [address] Dr. Dwight Waters AST [Catalytic activity/Vol] 17 U/L Normal 15-37 [facility] Comment on above: Performed By: #### C MP #### [facility] [address] [place] [address] Dr. Dwight Waters Bilirubin [Mass/Vol] 0.8 mg/dL Normal 0.2-1.0 [facility] Comment on above: Performed By: #### C MP #### [facility] [address] [place] [address] Dr. Dwight Waters Calcium [Mass/Vol] 9.4 mg/dL Normal 8.5-10.1 [facility] Comment on above: Performed By: #### C MP #### [facility] [address] [place] [address] Dr. Dwight Waters Chloride [Moles/Vol] 106 mmol/L Normal 98-107 [facility] Comment on above: Performed By: #### C MP #### [facility] [address] [place] [address] Dr. Dwight Waters CO2 [Moles/Vol] 25.3 mmol/L Normal 21.0-32.0 [facility] Comment on above: Performed By: #### C MP #### [facility] [address] [address] [address] Dwight Waters Creatinine [Mass/Vol] 1.29 mg/dL Normal 0.70-1.30 [facility] Comment on above: Performed By: #### C MP #### [facility] [address] [address] [address] Dwight Waters EGFR-AF SERBIAN >60 Normal >=60 [facility] Comment on above: Performed By: #### C MP #### [facility] [address] [address] [address] Dwight Waters EGFR-NON AF SERBIAN 59 mL/min/1.73m2 Critically low >=60 [facility] Comment on above: Performed By: #### C MP #### [facility] [address] [address] [address] Dwight Waters Globulin (S) [Mass/Vol] 4.2 g/dL Normal [facility] Comment on above: Performed By: #### C MP #### [facility] [address] [address] [address] Dwight Waters Glucose [Mass/Vol] 106 mg/dL Normal 74-106 [facility] Comment on above: Performed By: #### C MP #### [facility] [address] [address] [address] Dwight Waters Potassium [Moles/Vol] 4.2 mmol/L Normal 3.5-5.1 [facility] Comment on above: Performed By: #### C MP #### [facility] [address] [address] [address] Dwight Waters Protein [Mass/Vol] 7.9 g/dL Normal 6.4-8.2 [facility] Comment on above: Performed By: #### C MP #### [facility] [address] [address] [address] Dwight Waters Sodium [Moles/Vol] 140 mmol/L Normal 136-145 [facility] Comment on above: Performed By: #### C MP #### [facility] [address] [place] [address] Dr. Dwight Waters Urea nitrogen [Mass/Vol] 22.0 mg/dL Critically high 7.0-18.0 [facility] Comment on above: Performed By: #### C MP #### [facility] [address] [place] [address] Dr. Dwight Waters Urea nitrogen/Creatinine [Mass ratio] 17.1 mg/mg Normal [facility] Comment on above: Performed By: #### C MP #### [facility] [address] [place] [address] Dr. Dwight Waters URINE MICROSCOPIC ONLYon BACTERIA TRACE Abnormal NONE SEEN [facility] Comment on above: Performed By: #### U RTPCR #### [facility] [address] [place] [address] Dr. Dwight Waters Bacteria identified Cx Nom (U) INDICATED Normal [facility] Comment on above: Performed By: #### U RTPCR #### [facility] [address] [place] [address] Dr. Dwight Waters CAST NONE SEEN Normal NONE SEEN [facility] Comment on above: Performed By: #### U RTPCR #### [facility] [address] [place] [address] Dr. Dwight Waters Crystals LM Nom (Urine sed) NONE SEEN Normal NONE SEEN [facility] Comment on above: Performed By: #### U RTPCR #### [facility] [address] [place] [address] Dr. Dwight Waters Epithelial cells LM Ql (Urine sed) NONE SEEN Normal NONE SEEN /RARE [facility] Comment on above: Performed By: #### U RTPCR #### [facility] [address] [place] [address] Dr. Dwight Waters MUCOUS NONE SEEN Normal NONE SEEN [facility] Comment on above: Performed By: #### U RTPCR #### [facility] [address] [place] [address] Dr. Dwight Waters RBC 5-10 Abnormal 0-2 [facility] Comment on above: Performed By: #### U RTPCR #### [facility] [address] [place], [place] [address] Dr. Dwight Waters WBC 10-20 Abnormal NONE SEEN [facility] Comment on above: Performed By: #### U RTPCR #### [facility] [address] [place], [place] [address] Dr. Dwight Waters ALLOSCREEN RECIPIENT (POST T X PRA)on 06-13-2022 AB SPECIFICITY CLASS COMMENT Antibody Specificity testing performed by [employer]. cPRA calculation based on identification of HLA antibody specificities at MFI >2000 and/or presence of CREG antibodies. [facility] Comment on above: Some of the reagents used for testing in the Clinical Histocompatibility Laboratory have yet to be approved by the FDA. Our certification by CLIA to perform high complexity tests allows us to use these reagents in the context of a stringent QC program, and obviates the need for FDA approval.Testing performed by the [facility] Clinical Histocompatibility Laboratory. [facility] number: [id number]. CLIA number: [id number], Director: Carlito Merchant, PhD, D([facility]). ANTIBODY SPECIFICITY INTERPRETATION Detected [facility] CLASS I SPECIFICITIES Not detected [facility] CLASS II SPECIFICITIES Not detected [facility] HLA Ab (S) 0 % 0 [facility] EXTRA MICROon 06-13-2022 [facility] URINE CULTUREOrdered By: Jah Upton on 06-13-2022 Bacteria identified Cx Nom (Unsp spec) Growth [facility] Bacteria identified Cx Nom (Unsp spec) 10,000-50,000 CFU/mL Mixed skin shimon [facility] Comment on above: Multiple bacterial m orphotypes present. Suggest appropriate recollection if clinically indicated. [facility] CBC,PLATELETSon 06-12-2022 Erythrocyte distribution width (RBC) [Ratio] 13.0 % 10.9 - 14.3 % [facility] Hematocrit (Bld) [Volume fraction] 43.2 % 39.6 - 48.8 % [facility] Hemoglobin (Bld) [Mass/Vol] 13.9 g/dL 13.4 - 16.8 g/dL [facility] Interpretation and review of laboratory results Normal [facility] MCH (RBC) [Entitic mass] 28.7 pg 26.1 - 33.3 pg [facility] MCHC (RBC) [Mass/Vol] 32.2 g/dL 31.9 - 36.5 g/dL [facility] MCV (RBC) [Entitic vol] 89.1 fL 79.0 - 94.5 fL [facility] Platelet mean volume (Bld) [Entitic vol] 10.5 fL 8.7 - 12.3 fL [facility] Platelets (Bld) [#/Vol] 269 10*3/uL 146 - 337 K/uL [facility] RBC (Bld) [#/Vol] 4.85 10*6/uL [facility] WBC (Bld) [#/Vol] 7.68 10*3/uL 3.73 - 10. 10 K/uL [facility] CHEM 7 (LYTES,BUN,CREA,GLUC) on 06-12-2022 Anion gap [Moles/Vol] 14 mmol/L 7 - 17 mmol/L [facility] Chloride [Moles/Vol] 106 mmol/L 98 - 10 8 mmol/L [facility] CO2 [Moles/Vol] 25 mmol/L 21 - 31 mmol/L [facility] Creatinine [Mass/Vol] 1.26 mg/dL 0.70 - 1.30 mg/dL [facility] GFR/1.73 sq M.predicted CKD-EPI (S/P/Bld) [Vol rate/Area] 69 >=60 mL/min/1.73m2 [facility] Comment on above: Reported eGFR is bas ed on the CKD-EPI 2020 equation using creatinine, age, and sex. Glucose [Mass/Vol] 83 mg/dL 70 - 99 mg/dL [facility] Osmolality Calc [facility]olality] [facility] Potassium [Moles/Vol] 3.8 mmol/L 3.5 - 5.0 mmol/L [facility] Sodium [Moles/Vol] 141 mmol/L 135 - 145 mmol/L [facility] Urea nitrogen [Mass/Vol] 18 mg/dL 7 - 25 mg/dL [facility] Urea nitrogen/Creatinine [Mass ratio] 14 mg/mg [facility] GGTon 06-12-2022 Gamma glutamyl transferase [Catalytic activity/Vol] 20 U/L 8 - 64 U/L [facility] HEMOGLOBIN [id number] By: Link [employer] on 06-12-2022 Average glucose Estimated from glycated hemoglobin (Bld) [Mass/Vol] 126 mg/dL [facility] HbA1c (Bld) [Mass fraction] 6.0 % High 4.7 - 5.6 % [facility] Interpretation and review of laboratory results Abnormal [facility] HEPATIC FUNCTION PANELon Albumin [Mass/Vol] 4.3 g/dL 3.5 - 5.0 g/dL [facility] ALP [Catalytic activity/Vol] 78 U/L 32 - 126 U/L [facility] ALT [Catalytic activity/Vol] 12 U/L 10 - 52 U/L [facility] AST [Catalytic activity/Vol] 16 U/L 10 - 39 U/L [facility] Bilirubin [Mass/Vol] 1.0 mg/dL <1.5 [facility] Bilirubin.direct [Mass/Vol] 0.2 mg/dL <0.3 [facility] Protein [Mass/Vol] 7.5 g/dL 6.4 - 8.3 g/dL [facility] No Panel Informationon 06-12 Interpretation and review of laboratory results Normal [facility] PTH INTACTOrdered By: Marli Lizarraga on 06-12-2022 Interpretation and review of laboratory results Abnormal [facility] Parathyrin.intact [Mass/Vol] 79.7 pg/mL High 14.0 - 72.0 pg/mL [facility] URINALYSIS REFLEX TO CULTURE PERFORMABLEon 06-12-2022 Appearance (U) Clear Clear [facility] Bacteria LM Ql (Urine sed) ABSENT ABSENT [facility] Color (U) Yellow Yellow [facility] Epithelial cells.squamous LM Ql (Urine sed) 1/hpf = 1+ 1/hpf = 1+, 2-5/hpf = 2+, 0/hpf = 0+, ABSENT [facility] Glucose Test strip (U) [Mass/Vol] Negative Negative [facility] Interpretation and review of laboratory results Abnormal [facility] Ketones (U) [Mass/Vol] Trace Abnormal Negative [facility] Leukocyte esterase Test strip Ql (U) Small Abnormal Negative [facility] Nitrite Ql (U) Negative Negative [facility] pH (U) 5.5 [pH] 5.0 - 7.0 [facility] Protein (U) [Mass/Vol] 30 mg/dL Abnormal Negative [facility] RBC (U) [#/Vol] Trace Abnormal Negative [facility] RBC LM.HPF (Urine sed) [#/Area] 0-2 0 - 2 /HPF [facility] Specific gravity (U) [Rel density] 1.026 [facility] Urobilinogen (U) [Mass/Vol] 0.2 E.U./dL 0.2 E.U/dL, 1.0 E.U/dL [facility] WBC LM.HPF (Urine sed) [#/Area] 10-20 Abnormal 0 - 5 /HPF [facility] URINE PROTEIN/CREA RATIO, RA NDOMon 06-12-2022 Creatinine (24H U) [Mass/Vol] 231.68 mg/dL [facility] Protein Unsp time (U) [Mass/Vol] 49 mg/dL [facility] Protein/Creatinine (U) [Mass ratio] 0.211 mg/g [facility] FK506 (TACROLIMUS) WHOLE BLO ODon 06-09-2022 Tacrolimus (FK506), Blood 9.8 ng/mL Normal 2.0-20.0 [facility] Comment on above: Result Comment: Trou gh (immediately following transplant) 15.0 . Trough (steady state, 2 weeks or more after transplant): 3.0 - 8.0 . Performed by LC-MS/MS technology. Performed By: #### U RTPCR #### [facility] [address] [place] [address] Dr. Dwight Waters ALBUMINon 06-06-2022 Albumin [Mass/Vol] 3.8 g/dL Normal 3.4-5.0 [facility] Comment on above: Performed By: #### C MP #### [facility] [address] [place] [address] Dr. Dwight Waters ALKALINE PHOSPHAon ALP [Catalytic activity/Vol] 82 U/L Normal 46-116 [facility] Comment on above: Performed By: #### C MP #### [facility] [address] [place] [address] Dr. Dwight Waters BILIRUBIN CONJUGATED (DIRECT )on 06-06-2022 BILI, CONJUGATED 0.2 mg/dL Normal 0.0-0.2 [facility] Comment on above: Performed By: #### C BC #### [facility] [address] [place] [address] Dr. Dwight Waters BILIRUBIN TOTALon 06-06-2022 Bilirubin [Mass/Vol] 1.0 mg/dL Normal 0.2-1.0 [facility] Comment on above: Performed By: #### C BC #### [facility] [address] [place] [address] Dr. Dwight Waters BUNon 06-06-2022 Urea nitrogen [Mass/Vol] 18.0 mg/dL Normal 7.0-18.0 [facility] Comment on above: Performed By: #### C BC #### [facility] [address] [place] [address] Dr. Dwight Waters CALCIUMon 06-06-2022 Calcium [Mass/Vol] 9.4 mg/dL Normal 8.5-10.1 [facility] Comment on above: Performed By: #### C MP #### [facility] [address] [address] [address] Dwight Waters CBC AUTO DIFFon 06-06-2022 BASO # 0.1 103/ul Normal 0.0-0.1 [facility] Comment on above: Performed By: #### U RTPCR #### [facility] [address] [place] [address] Dr. Dwight Waters Basophils/100 WBC (Bld) 0.8 % Normal 0.2-2.0 [facility] Comment on above: Performed By: #### U RTPCR #### [facility] [address] [place] [address] Dr. Dwight Waters EO # 0.3 103/ul Normal 0.0-0.7 [facility] Comment on above: Performed By: #### U RTPCR #### [facility] [address] [place] [address] Dr. Dwight Waters Eosinophils/100 WBC (Bld) 3.3 % Normal 0.9-7.0 [facility] Comment on above: Performed By: #### U RTPCR #### [facility] [address] [place] [address] Dr. Dwight Waters Erythrocyte distribution width (RBC) [Ratio] 12.4 % Normal 11.0-15.0 [facility] Comment on above: Performed By: #### U RTPCR #### [facility] [address] [place] [address] Dr. Dwight Waters Hematocrit (Bld) [Volume fraction] 45.1 % Normal 42.0-54.0 [facility] Comment on above: Performed By: #### U RTPCR #### [facility] [address] [place] [address] Dr. Dwight Waters Hemoglobin (Bld) [Mass/Vol] 14.4 g/dL Normal 14.0-18.0 [facility] Comment on above: Performed By: #### U RTPCR #### [facility] [address] [place] [address] Dr. Dwight Waters IG # 0.01 10e3/ul Normal 0.00-0.03 [facility] Comment on above: Performed By: #### U RTPCR #### [facility] [address] [place] [address] Dr. Dwight Waters IG % 0.1 % Normal 0.0-0.5 [facility] Comment on above: Performed By: #### U RTPCR #### [facility] [address] [place] [address] Dr. Dwight Waters LYMPH # 2.2 103/ul Normal 1.2-3.8 [facility] Comment on above: Performed By: #### U RTPCR #### [facility] [address] [place] [address] Dr. Dwight Waters Lymphocytes/100 WBC (Bld) 30.0 % Normal 20.5-60.0 [facility] Comment on above: Performed By: #### U RTPCR #### [facility] [address] [place] [address] Dr. Dwight Waters MANUAL DIFF REQ NO [facility] Comment on above: Performed By: #### U RTPCR #### [facility] [address] [place] [address] Dr. Dwight Waters MCH (RBC) [Entitic mass] 28.2 pg Normal 25.9-34.0 [facility] Comment on above: Performed By: #### U RTPCR #### [facility] [address] [place] [address] Dr. Dwight Waters MCHC (RBC) [Mass/Vol] 31.9 g/dL Normal 29.9-35.2 [facility] Comment on above: Performed By: #### U RTPCR #### [facility] [address] [place] [address] Dr. Dwight Waters MCV (RBC) [Entitic vol] 88.3 fL Normal 80.0-94.0 [facility] Comment on above: Performed By: #### U RTPCR #### [facility] [address] [place] [address] Dr. Dwight Waters MONO # 0.6 103/ul Normal 0.3-0.8 [facility] Comment on above: Performed By: #### U RTPCR #### [facility] [address] [place] [address] Dr. Dwight Waters Monocytes/100 WBC (Bld) 8.2 % Normal 1.7-12.0 [facility] Comment on above: Performed By: #### U RTPCR #### [facility] [address] [place] [address] Dr. Dwight Waters NEUT # 4.3 103/ul Normal 1.4-6.5 [facility] Comment on above: Performed By: #### U RTPCR #### [facility] [address] [place] [address] Dr. Dwight Waters Neutrophils/100 WBC (Bld) 57.6 % Normal 43.0-75.0 [facility] Comment on above: Performed By: #### U RTPCR #### [facility] [address] [place] [address] Dr. Dwight Waters Platelet mean volume (Bld) [Entitic vol] 9.7 fL Normal 9.5-13.5 [facility] Comment on above: Performed By: #### U RTPCR #### [facility] [address] [place] [address] Dr. Dwight Waters PLT 297 103/ul Normal 150-450 [facility] Comment on above: Performed By: #### U RTPCR #### [facility] [address] [place] [address] Dr. Dwight Waters RBC 5.11 106/ul Normal 4.70-6.10 [facility] Comment on above: Performed By: #### U RTPCR #### [facility] [address] [place] [address] Dr. Dwight Waters WBC 7.5 103/ul Normal 4.0-11.0 [facility] Comment on above: Performed By: #### U RTPCR #### [facility] [address] [place] [address] Dr. Dwight Waters CHLORIDEon 06-06-2022 Chloride [Moles/Vol] 107 mmol/L Normal 98-107 [facility] Comment on above: Performed By: #### C BC #### [facility] [address] [address] [address] Dwight Waters CO2on 06-06-2022 CO2 [Moles/Vol] 27.4 mmol/L Normal 21.0-32.0 [facility] Comment on above: Performed By: #### C BC #### [facility] [address] [address] [address] Dwight Waters CREATININEon 06-06-2022 Creatinine [Mass/Vol] 1.20 mg/dL Normal 0.70-1.30 [facility] Comment on above: Performed By: #### C BC #### [facility] [address] [address] [address] Dwight Waters EGFR-AF SERBIAN >60 Normal >=60 [facility] Comment on above: Performed By: #### C BC #### [facility] [address] [place] [address] Dr. Dwight Waters EGFR-NON AF SERBIAN >60 Normal >=60 [facility] Comment on above: Performed By: #### C BC #### [facility] [address] [place] [address] Dr. Dwight Waters GGTon 06-06-2022 Gamma glutamyl transferase [Catalytic activity/Vol] 29 U/L Normal 15-85 [facility] Comment on above: Performed By: #### C BC #### [facility] [address] [address] [address] Dwight Waters GLUCOSE BLOODon 06-06-2022 Glucose [Mass/Vol] 112 mg/dL Critically high 74-106 [facility] Comment on above: Performed By: #### C BC #### [facility] [address] [place] [address] Dr. Dwight Waters MAGNESIUMon 06-06-2022 Magnesium [Mass/Vol] 1.3 mg/dL Critically low 1.8-2.4 [facility] Comment on above: Performed By: #### C MP #### [facility] [address] [place] [address] Dr. Dwight Waters NAon 06-06-2022 Sodium [Moles/Vol] 141 mmol/L Normal 136-145 [facility] Comment on above: Performed By: #### C MP #### [facility] [address] [place] [address] Dr. Dwight Waters PHOSPHORUSon 06-06-2022 Phosphate [Mass/Vol] 3.1 mg/dL Normal 2.6-4.7 [facility] Comment on above: Performed By: #### C MP #### [facility] [address] [place] [address] Dr. Dwight Waters POTASSIUMon 06-06-2022 Potassium [Moles/Vol] 4.3 mmol/L Normal 3.5-5.1 [facility] Comment on above: Performed By: #### C BC #### [facility] [address] [place] [address] Dr. Dwight Waters SGOTon 06-06-2022 AST [Catalytic activity/Vol] 16 U/L Normal 15-37 [facility] Comment on above: Performed By: #### C BC #### [facility] [address] [place] [address] Dr. Dwight Waters SGPTon 06-06-2022 ALT [Catalytic activity/Vol] 50 U/L Normal 16-63 [facility] Comment on above: Performed By: #### C BC #### [facility] [address] [place] [address] Dr. Dwight Waters Bacteria identified Cx Nom ( Bld)on 05-21-2022 Bacteria identified Cx Nom (Unsp spec) NO GROWTH DAY 5 OF [address] [facility] Results may be compromised due to volume of BACT\ALERT bottle exceeding 10mLs . The optimal blood volume is 8-10 mls per aerobic/anaerobic blood culture bottle. [facility] CALCIUMon 05-20-2022 Calcium [Mass/Vol] 9.1 mg/dL 8.6 - 10. 5 mg/dL [facility] CBC,PLATELETSon 05-20-2022 Erythrocyte distribution width (RBC) [Ratio] 12.5 % 10.9 - 14.3 % [facility] Hematocrit (Bld) [Volume fraction] 37.1 % Low 39.6 - 48.8 % [facility] Hemoglobin (Bld) [Mass/Vol] 12.3 g/dL Low 13.4 - 16.8 g/dL [facility] Interpretation and review of laboratory results Abnormal [facility] MCH (RBC) [Entitic mass] 28.9 pg 26.1 - 33.3 pg [facility] MCHC (RBC) [Mass/Vol] 33.2 g/dL 31.9 - 36.5 g/dL [facility] MCV (RBC) [Entitic vol] 87.3 fL 79.0 - 94.5 fL [facility] Platelet mean volume (Bld) [Entitic vol] 9.9 fL 8.7 - 12.3 fL [facility] Platelets (Bld) [#/Vol] 234 10*3/uL 146 - 337 K/uL [facility] RBC (Bld) [#/Vol] 4.25 10*6/uL Low [facility] WBC (Bld) [#/Vol] 6.31 10*3/uL 3.73 - 10. 10 K/uL [facility] CHEM 7 (LYTES,BUN,CREA,GLUC) on 05-20-2022 Anion gap [Moles/Vol] 15 mmol/L 7 - 17 mmol/L [facility] Chloride [Moles/Vol] 111 mmol/L High 98 - 10 8 mmol/L [facility] CO2 [Moles/Vol] 22 mmol/L 21 - 31 mmol/L [facility] Creatinine [Mass/Vol] 1.10 mg/dL 0.70 - 1.30 mg/dL [facility] GFR/1.73 sq M.predicted CKD-EPI (S/P/Bld) [Vol rate/Area] 81 >=60 mL/min/1.73m2 [facility] Comment on above: Reported eGFR is bas ed on the CKD-EPI 2020 equation using creatinine, age, and sex. Glucose [Mass/Vol] 92 mg/dL 70 - 99 mg/dL [facility] Interpretation and review of laboratory results Abnormal [facility] Osmolality Calc [Osmolality] 302 [facility] Potassium [Moles/Vol] 4.4 mmol/L 3.5 - 5.0 mmol/L [facility] Sodium [Moles/Vol] 144 mmol/L 135 - 145 mmol/L [facility] Urea nitrogen [Mass/Vol] 18 mg/dL 7 - 25 mg/dL [facility] Urea nitrogen/Creatinine [Mass ratio] 16 mg/mg [facility] MAGNESIUMon 05-20-2022 Interpretation and review of laboratory results Abnormal [facility] Magnesium [Mass/Vol] 1.5 mg/dL Low 1.6 - 2 .6 mg/dL [facility] No Panel Informationon 05-20 Interpretation and review of laboratory results Normal [facility] PHOSPHATE, INORGANICon 05-20 Phosphate [Mass/Vol] 3.3 mg/dL 2.2 - 4 .6 mg/dL [facility] RF Unspecified body region V iews during [...] projections of kidneys, ureters, and bladder. FINDINGS: Dra[employer] images: [employer] radiographs of the abdomen reveal a nonobstructive [...] Contrast refluxes up the ureter to the prairie band right kidney that is grossly normal appearing. [...] projections of kidneys, ureters, and bladder. FINDINGS: [employer] images: [employer] radiographs of the abdomen reveal a nonobstructive [...] Contrast refluxes up the ureter to the prairie band right kidney that is grossly normal appearing. [...] I have reviewed and approved this report. [facility] Radiology Study observation (narrative) [facility] RF Unspecified body region V iews during surgeryOrdered By: Lizz Campos on 05-20-2022 [facility] Work Phone: CALCIUMon 05-19-2022 Calcium [Mass/Vol] 9.2 mg/dL 8.6 - 10. 5 mg/dL [facility] Calcium [Mass/Vol] 8.6 mg/dL 8.6 - 10. 5 mg/dL [facility] CBC,PLATELETSon 05-19-2022 Erythrocyte distribution width (RBC) [Ratio] 12.4 % 10.9 - 14.3 % [facility] Hematocrit (Bld) [Volume fraction] 38.0 % Low 39.6 - 48.8 % [facility] Hemoglobin (Bld) [Mass/Vol] 12.0 g/dL Low 13.4 - 16.8 g/dL [facility] Interpretation and review of laboratory results Abnormal [facility] MCH (RBC) [Entitic mass] 28.6 pg 26.1 - 33.3 pg [facility] MCHC (RBC) [Mass/Vol] 31.6 g/dL Low 31.9 - 36.5 g/dL [facility] MCV (RBC) [Entitic vol] 90.5 fL 79.0 - 94.5 fL [facility] Platelet mean volume (Bld) [Entitic vol] 9.7 fL 8.7 - 12.3 fL [facility] Platelets (Bld) [#/Vol] 199 10*3/uL 146 - 337 K/uL [facility] RBC (Bld) [#/Vol] 4.20 10*6/uL [facility] WBC (Bld[facility] [#/Vol] 6.81 10*3/uL 3.73 - 10. 10 K/uL [facility] CHEM 7 (LYTES,BUN,CREA,GLUC) on 05-19-2022 Anion gap [Moles/Vol] 13 mmol/L 7 - 17 mmol/L [facility] Chloride [Moles/Vol] 105 mmol/L 98 - 10 8 mmol/L [facility] CO2 [Moles/Vol] 30 mmol/L 21 - 31 mmol/L [facility] Creatinine [Mass/Vol] 1.39 mg/dL High 0.70 - 1.30 mg/dL [facility] GFR/1.73 sq M.predicted CKD-EPI (S/P/Bld) [Vol rate/Area] 61 >=60 mL/min/1.73m2 [facility] Comment on above: Reported eGFR is bas ed on the CKD-EPI 2020 equation using creatinine, age, and sex. Glucose [Mass/Vol] 121 mg/dL High 70 - 99 mg/dL [facility] Interpretation and review of laboratory results Abnormal [facility] Osmolality Calc [Osmolality] 303 [facility] Potassium [Moles/Vol] 3.8 mmol/L 3.5 - 5.0 mmol/L [facility] Sodium [Moles/Vol] 144 mmol/L 135 - 145 mmol/L [facility] Urea nitrogen [Mass/Vol] 18 mg/dL 7 - 25 mg/dL [facility] Urea nitrogen/Creatinine [Mass ratio] 13 mg/mg [facility] Anion gap [Moles/Vol] 15 mmol/L 7 - 17 mmol/L [facility] Chloride [Moles/Vol] 106 mmol/L 98 - 10 8 mmol/L [facility] CO2 [Moles/Vol] 24 mmol/L 21 - 31 mmol/L [facility] Creatinine [Mass/Vol] 1.46 mg/dL High 0.70 - 1.30 mg/dL [facility] GFR/1.73 sq M.predicted CKD-EPI (S/P/Bld) [Vol rate/Area] 58 Low >=60 mL/min/1.73m2 [facility] Comment on above: Reported eGFR is bas ed on the CKD-EPI 2020 equation using creatinine, age, and sex. Glucose [Mass/Vol] 103 mg/dL High 70 - 99 mg/dL [facility] Interpretation and review of laboratory results Abnormal [facility] Osmolality Calc [Osmolality] 298 [facility] Potassium [Moles/Vol] 3.9 mmol/L 3.5 - 5.0 mmol/L [facility] Sodium [Moles/Vol] 141 mmol/L 135 - 145 mmol/L [facility] Urea nitrogen [Mass/Vol] 21 mg/dL 7 - 25 mg/dL [facility] Urea nitrogen/Creatinine [Mass ratio] 14 mg/mg [facility] MAGNESIUMon 05-19-2022 Magnesium [Mass/Vol] 2.0 mg/dL 1.6 - 2 .6 mg/dL [facility] Magnesium [Mass/Vol] 1.7 mg/dL 1.6 - 2 .6 mg/dL [facility] No Panel Informationon 05-19 Interpretation and review of laboratory results Normal [facility] Interpretation and review of laboratory results Normal [facility] PHOSPHATE, INORGANICon 05-19 Phosphate [Mass/Vol] 3.0 mg/dL 2.2 - 4 .6 mg/dL [facility] Phosphate [Mass/Vol] 2.7 mg/dL 2.2 - 4 .6 mg/dL [facility] CALCIUMon 05-18-2022 Calcium [Mass/Vol] 9.1 mg/dL 8.6 - 10. 5 mg/dL [facility] CBC,PLATELETSon 05-18-2022 Erythrocyte distribution width (RBC) [Ratio] 12.5 % 10.9 - 14.3 % [facility] Hematocrit (Bld) [Volume fraction] 37.3 % Low 39.6 - 48.8 % [facility] Hemoglobin (Bld) [Mass/Vol] 11.9 g/dL Low 13.4 - 16.8 g/dL [facility] Interpretation and review of laboratory results Abnormal [facility] MCH (RBC) [Entitic mass] 28.9 pg 26.1 - 33.3 pg [facility] MCHC (RBC) [Mass/Vol] 31.9 g/dL 31.9 - 36.5 g/dL [facility] MCV (RBC) [Entitic vol] 90.5 fL 79.0 - 94.5 fL [facility] Platelet mean volume (Bld) [Entitic vol] 10.1 fL 8.7 - 12.3 fL [facility] Platelets (Bld) [#/Vol] 189 10*3/uL 146 - 337 K/uL [facility] RBC (Bld) [#/Vol] 4.12 10*6/uL Low [facility] WBC (Bld) [#/Vol] 10.19 10*3/uL High 3.73 - 10 .10 K/uL [facility] CHEM 7 (LYTES,BUN,CREA,GLUC) on 05-18-2022 Anion gap [Moles/Vol] 13 mmol/L 7 - 17 mmol/L [facility] Chloride [Moles/Vol] 102 mmol/L 98 - 10 8 mmol/L [facility] CO2 [Moles/Vol] 26 mmol/L 21 - 31 mmol/L [facility] Creatinine [Mass/Vol] 1.91 mg/dL High 0.70 - 1.30 mg/dL [facility] GFR/1.73 sq M.predicted CKD-EPI (S/P/Bld) [Vol rate/Area] 42 Low >=60 mL/min/1.73m2 [facility] Comment on above: Reported eGFR is bas ed on the CKD-EPI 2020 equation using creatinine, age, and sex. Glucose [Mass/Vol] 158 mg/dL High 70 - 99 mg/dL [facility] Osmolality Calc [Osmolality] 297 [facility] Potassium [Moles/Vol] 4.0 mmol/L 3.5 - 5.0 mmol/L [facility] Sodium [Moles/Vol] 137 mmol/L 135 - 145 mmol/L [facility] Urea nitrogen [Mass/Vol] 30 mg/dL High 7 - 25 mg/dL [facility] Urea nitrogen/Creatinine [Mass ratio] 16 mg/mg [facility] CHEM 7 (LYTES,BUN,CREA,GLUC) Ordered By: Tamiko Thapa on 05-18-2022 Anion gap [Moles/Vol] 13 mmol/L 7 - 17 mmol/L [facility] Chloride [Moles/Vol] 104 mmol/L 98 - 10 8 mmol/L [facility] CO2 [Moles/Vol] 26 mmol/L 21 - 31 mmol/L [facility] Creatinine [Mass/Vol] 2.96 mg/dL High 0.70 - 1.30 mg/dL [facility] GFR/1.73 sq M.predicted CKD-EPI (S/P/Bld) [Vol rate/Area] 25 Low >=60 mL/min/1.73m2 [facility] Comment on above: Reported eGFR is bas ed on the CKD-EPI 2020 equation using creatinine, age, and sex. Glucose [Mass/Vol] 136 mg/dL High 70 - 99 mg/dL [facility] Interpretation and review of laboratory results Abnormal [facility] Osmolality Calc [Osmolality] 304 [facility] Potassium [Moles/Vol] 4.2 mmol/L 3.5 - 5.0 mmol/L [facility] Sodium [Moles/Vol] 139 mmol/L 135 - 145 mmol/L [facility] Urea nitrogen [Mass/Vol] 41 mg/dL High 7 - 25 mg/dL [facility] Urea nitrogen/Creatinine [Mass ratio] 14 mg/mg [facility] MAGNESIUMon 05-18-2022 Magnesium [Mass/Vol] 2.2 mg/dL 1.6 - 2 .6 mg/dL [facility] Interpretation and review of laboratory results Normal [facility] Magnesium [Mass/Vol] 1.7 mg/dL 1.6 - 2 .6 mg/dL [facility] No Panel Informationon 05-18 Interpretation and review of laboratory results Abnormal [facility] Interpretation and review of laboratory results Normal [facility] PHOSPHATE, INORGANICon 05-18 Phosphate [Mass/Vol] 2.0 mg/dL Low 2.2 - 4 .6 mg/dL [facility] Interpretation and review of laboratory results Normal [facility] Phosphate [Mass/Vol] 2.8 mg/dL 2.2 - 4 .6 mg/dL [facility] PT,INR,PTTon 05-18-2022 aPTT Coag (PPP) [Time] 31.0 s [facility] INR Coag (Bld) [Relative time] 1.1 {INR} [facility] Interpretation and review of laboratory results Abnormal [facility] PT Coag (PPP) [Time] 14.4 s High [facility] URINE CULTUREOrdered By: Sylvia Campos on 05-18-2022 Bacteria identified Cx Nom (Unsp spec) No Growth [facility] CBC,PLATELETSon 05-17-2022 Erythrocyte distribution width (RBC) [Ratio] 12.8 % 10.9 - 14.3 % [facility] Hematocrit (Bld) [Volume fraction] 42.8 % 39.6 - 48.8 % [facility] Hemoglobin (Bld) [Mass/Vol] 13.3 g/dL Low 13.4 - 16.8 g/dL [facility] Interpretation and review of laboratory results Abnormal [facility] MCH (RBC) [Entitic mass] 28.9 pg 26.1 - 33.3 pg [facility] MCHC (RBC) [Mass/Vol] 31.1 g/dL Low 31.9 - 36.5 g/dL [facility] MCV (RBC) [Entitic vol] 92.8 fL 79.0 - 94.5 fL [facility] Platelet mean volume (Bld) [Entitic vol] 10.3 fL 8.7 - 12.3 fL [facility] Platelets (Bld) [#/Vol] 188 10*3/uL 146 - 337 K/uL [facility] RBC (Bld) [#/Vol] 4.61 10*6/uL [facility] WBC (Bld) [#/Vol] 16.61 10*3/uL High 3.73 - 10 .10 K/uL [facility] CHEM 7 (LYTES,BUN,CREA,GLUC) Ordered By: Kaylah Mc on 05-17-2022 Anion gap [Moles/Vol] 15 mmol/L 7 - 17 mmol/L [facility] Chloride [Moles/Vol] 103 mmol/L 98 - 10 8 mmol/L [facility] CO2 [Moles/Vol] 23 mmol/L 21 - 31 mmol/L [facility] Creatinine [Mass/Vol] 5.95 mg/dL High 0.70 - 1.30 mg/dL [facility] GFR/1.73 sq M.predicted CKD-EPI (S/P/Bld) [Vol rate/Area] 11 Low >=60 mL/min/1.73m2 [facility] Comment on above: Reported eGFR is bas ed on the CKD-EPI 2020 equation using creatinine, age, and sex. Glucose [Mass/Vol] 165 mg/dL High 70 - 99 mg/dL [facility] Interpretation and review of laboratory results Abnormal [facility] Osmolality Calc [Osmolality] 305 [facility] Potassium [Moles/Vol] 4.6 mmol/L 3.5 - 5.0 mmol/L [facility] Sodium [Moles/Vol] 136 mmol/L 135 - 145 mmol/L [facility] Urea nitrogen [Mass/Vol] 52 mg/dL High 7 - 25 mg/dL [facility] Urea nitrogen/Creatinine [Mass ratio] 9 mg/mg [facility] CHEM 7 (LYTES,BUN,CREA,GLUC) Ordered By: Kehinde Olsen on 05-17-2022 Anion gap [Moles/Vol] 24 mmol/L High 7 - 17 mmol/L [facility] Chloride [Moles/Vol] 100 mmol/L 98 - 10 8 mmol/L [facility] CO2 [Moles/Vol] 16 mmol/L Low 21 - 31 mmol/L [facility] Creatinine [Mass/Vol] 8.08 mg/dL High 0.70 - 1.30 mg/dL [facility] GFR/1.73 sq M.predicted CKD-EPI (S/P/Bld) [Vol rate/Area] 7 Low >=60 mL/min/1.73m2 [facility] Comment on above: Reported eGFR is bas ed on the CKD-EPI 2020 equation using creatinine, age, and sex. Glucose [Mass/Vol] 164 mg/dL High 70 - 99 mg/dL [facility] Interpretation and review of laboratory results Abnormal [facility] Osmolality Calc [Osmolality] 305 [facility] Potassium [Moles/Vol] 5.0 mmol/L 3.5 - 5.0 mmol/L [facility] Sodium [Moles/Vol] 135 mmol/L 135 - 145 mmol/L [facility] Urea nitrogen [Mass/Vol] 56 mg/dL High 7 - 25 mg/dL [facility] Urea nitrogen/Creatinine [Mass ratio] 7 mg/mg [facility] LAVENDER TOP TUBEon 05-17-20 [facility] MAGNESIUMon 05-17-2022 Interpretation and review of laboratory results Normal [facility] Magnesium [Mass/Vol] 1.8 mg/dL 1.6 - 2 .6 mg/dL [facility] Interpretation and review of laboratory results Normal [facility] Magnesium [Mass/Vol] 1.6 mg/dL 1.6 - 2 .6 mg/dL [facility] No Panel Informationon 05-17 [facility] PHOSPHATE, INORGANICon 05-17 Interpretation and review of laboratory results Abnormal [facility] Phosphate [Mass/Vol] 4.9 mg/dL High 2.2 - 4 .6 mg/dL [facility] PT,INR,PTTon 05-17-2022 aPTT Coag (PPP) [Time] 33.0 s [facility] INR Coag (Bld) [Relative time] 1.3 {INR} High [facility] Interpretation and review of laboratory results Abnormal [facility] PT Coag (PPP) [Time] 15.7 s High [facility] Portable XR Chest Viewson IMPRESSION: No acute [...] Stable cardiomegaly. IMPRESSION IMPRESSION: No acute findings. [facility] Radiology Study observation (narrative) [facility] Portable XR Chest ViewsOrder ed By: David Sanz on 05-17-2022 [facility] Work Phone: URINALYSISOrdered By: Michael patel Ma on 05-17-2022 Appearance (U) Cloudy Abnormal Clear [facility] Comment on above: Results may be inacc urate due to color interference. Clinical correlation recommended. Bacteria LM Ql (Urine sed) ABSENT ABSENT [facility] Color (U) Red Abnormal Yellow [facility] Comment on above: Results may be inacc urate due to color interference. Clinical correlation recommended. Epithelial cells.squamous LM Ql (Urine sed) ABSENT 1/hpf = 1+, 2-5/hpf = 2+, 0/hpf = 0+, ABSENT [facility] Glucose Test strip (U) [Mass/Vol] Negative Negative [facility] Comment on above: Results may be inacc urate due to color interference. Clinical correlation recommended. Interpretation and review of laboratory results Abnormal [facility] Ketones (U) [Mass/Vol] Trace Abnormal Negative [facility] Comment on above: Results may be inacc urate due to color interference. Clinical correlation recommended. Leukocyte esterase Test strip Ql (U) Large Abnormal Negative [facility] Comment on above: Results may be inacc urate due to color interference. Clinical correlation recommended. Nitrite Ql (U) Negative Negative [facility] Comment on above: Results may be inacc urate due to color interference. Clinical correlation recommended. pH (U) 5.0 [pH] 5.0 - 7.0 [facility] Comment on above: Results may be inacc urate due to color interference. Clinical correlation recommended. Protein (U) [Mass/Vol] mg/dL Abnormal Negative [facility] Comment on above: Results may be inacc urate due to color interference. Clinical correlation recommended. RBC (U) [#/Vol] Large Abnormal Negative [facility] Comment on above: Results may be inacc urate due to color interference. Clinical correlation recommended. RBC LM.HPF (Urine sed) [#/Area] /[HPF] Abnormal 0 - 2 /HPF [facility] Specific gravity (U) [Rel density] 1.016 [facility] Comment on above: Results may be inacc urate due to color interference. Clinical correlation recommended. Urobilinogen (U) [Mass/Vol] 0.2 E.U./dL 0.2 E.U/dL, 1.0 E.U/dL [facility] Comment on above: Results may be inacc urate due to color interference. Clinical correlation recommended. WBC LM.HPF (Urine sed) [#/Area] /[HPF] Abnormal 0 - 5 /HPF [facility] URINE CULTUREOrdered By: Tyler Tiwari on 05-17-2022 Bacteria identified Cx Nom (Unsp spec) No Growth [facility] CBC,PLATELETSon 05-16-2022 Erythrocyte distribution width (RBC) [Ratio] 12.9 % 10.9 - 14.3 % [facility] Hematocrit (Bld) [Volume fraction] 46.5 % 39.6 - 48.8 % [facility] Hemoglobin (Bld) [Mass/Vol] 14.7 g/dL 13.4 - 16.8 g/dL [facility] Interpretation and review of laboratory results Abnormal [facility] MCH (RBC) [Entitic mass] 28.3 pg 26.1 - 33.3 pg [facility] MCHC (RBC) [Mass/Vol] 31.6 g/dL Low 31.9 - 36.5 g/dL [facility] MCV (RBC) [Entitic vol] 89.6 fL 79.0 - 94.5 fL [facility] Platelet mean volume (Bld) [Entitic vol] 10.3 fL 8.7 - 12.3 fL [facility] Platelets (Bld) [#/Vol] 188 10*3/uL 146 - 337 K/uL [facility] RBC (Bld) [#/Vol] 5.19 10*6/uL [facility] WBC (Bld) [#/Vol] 12.55 10*3/uL High 3.73 - 10 .10 K/uL [facility] CHEM 7 (LYTES,BUN,CREA,GLUC) Ordered By: Alma Pena on 05-16-2022 Anion gap [Moles/Vol] 14 mmol/L 7 - 17 mmol/L [facility] Chloride [Moles/Vol] 103 mmol/L 98 - 10 8 mmol/L [facility] CO2 [Moles/Vol] 22 mmol/L 21 - 31 mmol/L [facility] Creatinine [Mass/Vol] 6.09 mg/dL High 0.70 - 1.30 mg/dL [facility] GFR/1.73 sq M.predicted CKD-EPI (S/P/Bld) [Vol rate/Area] 10 Low >=60 mL/min/1.73m2 [facility] Comment on above: Reported eGFR is bas ed on the CKD-EPI 2020 equation using creatinine, age, and sex. Glucose [Mass/Vol] 134 mg/dL High 70 - 99 mg/dL [facility] Interpretation and review of laboratory results Abnormal [facility] Osmolality Calc [Osmolality] 298 [facility] Potassium [Moles/Vol] 4.9 mmol/L 3.5 - 5.0 mmol/L [facility] Sodium [Moles/Vol] 134 mmol/L Low 135 - 145 mmol/L [facility] Comment on above: Results inconsistent with previous results Urea nitrogen [Mass/Vol] 49 mg/dL High 7 - 25 mg/dL [facility] Urea nitrogen/Creatinine [Mass ratio] 8 mg/mg [facility] CHEM 7 (LYTES,BUN,CREA,GLUC) on 05-16-2022 Anion gap [Moles/Vol] 17 mmol/L 7 - 17 mmol/L [facility] Chloride [Moles/Vol] 106 mmol/L 98 - 10 8 mmol/L [facility] CO2 [Moles/Vol] 22 mmol/L 21 - 31 mmol/L [facility] Creatinine [Mass/Vol] 5.23 mg/dL High 0.70 - 1.30 mg/dL [facility] GFR/1.73 sq M.predicted CKD-EPI (S/P/Bld) [Vol rate/Area] 13 Low >=60 mL/min/1.73m2 [facility] Comment on above: Reported eGFR is bas ed on the CKD-EPI 2020 equation using creatinine, age, and sex. Glucose [Mass/Vol] 116 mg/dL High 70 - 99 mg/dL [facility] Interpretation and review of laboratory results Abnormal [facility] Osmolality Calc [Osmolality] 305 [facility] Potassium [Moles/Vol] 4.6 mmol/L 3.5 - 5.0 mmol/L [facility] Sodium [Moles/Vol] 140 mmol/L 135 - 145 mmol/L [facility] Urea nitrogen [Mass/Vol] 42 mg/dL High 7 - 25 mg/dL [facility] Urea nitrogen/Creatinine [Mass ratio] 8 mg/mg [facility] EXTRA MICROon 05-16-2022 [facility] LT BLUE TOP TUBEon 2 [facility] LYTES (NA, K, CL) - URINE - RANDOMon 05-16-2022 Chloride (24H U) [Moles/Vol] 68 mmol/L [facility] Potassium (24H U) [Moles/Vol] 36.7 mmol/L [facility] Sodium (24H U) [Moles/Vol] 55 mmol/L [facility] The reference range has not been established for random urine specimens. The test result should be integrated into the clinical context for interpretation. [facility] MAGNESIUMon 05-16-2022 Interpretation and review of laboratory results Normal [facility] Magnesium [Mass/Vol] 1.7 mg/dL 1.6 - 2 .6 mg/dL [facility] NOVEL CORONAVIRUS PCROrdered By: Edson Candelario on 05-16-2022 SARS-CoV-2 (COVID-19) RNA ESTELITA+probe Ql (Unsp spec) Not detected NOT DETECTED [facility] Comment on above: [facility] Negative results do [...] use authorization for use by authorized laboratories. [facility] No Panel Informationon 05-16 [facility] OSMOLALITY, URINEon 05-16-20 Interpretation and review of laboratory results Normal [facility] Osmolality (U) [Osmolality] 320 mosm/kg [facility] The reference range has not been established for random urine specimens. The test result should be integrated into the clinical context for interpretation. [facility] PROCALCITONINon 05-16-2022 Interpretation and review of laboratory results Normal [facility] Procalcitonin [Mass/Vol] 0.18 ng/mL <0.50 [facility] Comment on above: Procalcitonin is an FDA-approved assay to help manage antibiotic treatment in patients with sepsis/septic shock and lower respiratory tract infections. Specifically, trending procalcitonin in these situations can be used to reduce the duration of antibiotics. Please refer to the Procalcitonin Guide on the [employer]ward[employer] Webpage for more guidance on how to use and trend procalcitonin in various clinical settings. [email or web address]=[email or web address] Two common cutoffs associated with bacterial infections are as follows. Respiratory tract infections: >0.25 ng/mL Sepsis/septic shock: >0.5 ng/mL Procalcitonin should not be used alone as a diagnostic tool, however. All procalcitonin results should be interpreted in association with the patients clinical condition and all laboratory findings. [facility] PT,INR,PTTon 05-16-2022 aPTT Coag (PPP) [Time] 30.3 s [facility] INR Coag (Bld) [Relative time] 1.1 {INR} [facility] Interpretation and review of laboratory results Normal [facility] PT Coag (PPP) [Time] 14.1 s [facility] SARS-CoV-2 (COVID-19) RNA NA A+probe Ql (Unsp spec)Ordered By: Edson Candelario on 05-16-2022 Interpretation and review of laboratory results Normal [facility] TACROLIMUS LEVEL, TROUGH (UT E DRUG LEVEL)Ordered By: Mariama Nick on 05-16-2022 Interpretation and review of laboratory results Normal [facility] Tacrolimus (Bld) [Mass/Vol] 4.1 ng/mL Bone Marrow Transplant: 4.0-12.0, Therapeutic: 5.0-15.0 [facility] Method performed is a chemiluminescent microparticle immunoasssay on the [employer] i2000. The range is based on experience at [facility] and users should be aware that target concentrations vary widely depending on concomitant therapy, time post-transplant, and desired degree of immunosuppression. [facility] URINE PROTEIN/CREA RATIO, RA Smiley 05-16-2022 Creatinine (24H U) [Mass/Vol] 59.82 mg/dL [facility] Protein Unsp time (U) [Mass/Vol] 111 mg/dL [facility] Protein/Creatinine (U) [Mass ratio] 1.856 mg/g [facility] US for transplanted kidney l imitedon 05-16-2022 [...] appearing vascular flow in the transplant kidney. [facility] Radiology Study observation (narrative) [facility] US for transplanted kidney l imitedOrdered By: Rosendo Matute on 05-16-2022 [facility] Work Phone: CBC AND ELECTRONIC DIFFon Basophils (Bld) [#/Vol] 10*3/uL 0.00 - 0.09 K/uL [facility] Basophils/100 WBC (Bld) 0.2 % [facility] Differential cell count method Nom (Bld) Electronic Differential [facility] Eosinophils (Bld) [#/Vol] 10*3/uL 0.00 - 0.48 K/uL [facility] Eosinophils/100 WBC (Bld) 0.0 % [facility] Erythrocyte distribution width (RBC) [Ratio] 12.8 % 10.9 - 14.3 % [facility] Hematocrit (Bld) [Volume fraction] 46.0 % 39.6 - 48.8 % [facility] Hemoglobin (Bld) [Mass/Vol] 14.6 g/dL 13.4 - 16.8 g/dL [facility] Immature granulocytes (Bld) [#/Vol] 0.07 10*3/uL <=0.08 [facility] Immature granulocytes/100 WBC (Bld) 0.4 % [facility] Interpretation and review of laboratory results Abnormal [facility] Lymphocytes (Bld) [#/Vol] 1.49 10*3/uL 0.83 - 3.57 K/uL [facility] Lymphocytes/100 WBC (Bld) 9.4 % [facility] MCH (RBC) [Entitic mass] 28.2 pg 26.1 - 33.3 pg [facility] MCHC (RBC) [Mass/Vol] 31.7 g/dL Low 31.9 - 36.5 g/dL [facility] MCV (RBC) [Entitic vol] 89.0 fL 79.0 - 94.5 fL [facility] Monocytes (Bld) [#/Vol] 1.45 10*3/uL High 0.24 - 0.93 K/uL [facility] Monocytes/100 WBC (Bld) 9.2 % [facility] Neutrophils (Bld) [#/Vol] 12.77 10*3/uL High 1.57 - 6.19 K/uL [facility] Nucleated RBC/100 WBC (Bld) [Ratio] 0.0 % <=0.2 /100 WBC [facility] Platelet mean volume (Bld) [Entitic vol] 9.9 fL 8.7 - 12.3 fL [facility] Platelets (Bld) [#/Vol] 250 10*3/uL 146 - 337 K/uL [facility] RBC (Bld) [#/Vol] 5.17 10*6/uL [facility] Segmented neutrophils/100 WBC (Bld) 80.8 % [facility] WBC (Bld) [#/Vol] 15.81 10*3/uL High 3.73 - 10 .10 K/uL [facility] CBC AUTO DIFFon 05-15-2022 BASO # 0.0 103/ul Normal 0.0-0.1 [facility] Comment on above: Performed By: #### C BC #### [facility] [address] [address] [address] Dwight Waters Basophils/100 WBC (Bld) 0.3 % Normal 0.2-2.0 [facility] Comment on above: Performed By: #### C BC #### [facility] [address] [address] [address] Dwight Waters EO # 0.1 103/ul Normal 0.0-0.7 [facility] Comment on above: Performed By: #### C BC #### [facility] [address] [place], [place] [address] Dr. Dwight Waters Eosinophils/100 WBC (Bld) 0.8 % Critically low 0.9-7.0 [facility] Comment on above: Performed By: #### C BC #### [facility] [address] [address] [address] Dwight Waters Erythrocyte distribution width (RBC) [Ratio] 12.7 % Normal 11.0-15.0 [facility] Comment on above: Performed By: #### C BC #### [facility] [address] [place] [address] Dr. Dwight Waters Hematocrit (Bld) [Volume fraction] 43.5 % Normal 42.0-54.0 [facility] Comment on above: Performed By: #### C BC #### [facility] [address] [address] [address] Dwight Waters Hemoglobin (Bld) [Mass/Vol] 14.4 g/dL Normal 14.0-18.0 [facility] Comment on above: Performed By: #### C BC #### [facility] [address] [address] [address] Dwight Waters IG # 0.02 10e3/ul Normal 0.00-0.03 [facility] Comment on above: Performed By: #### C BC #### [facility] [address] [place] [address] Dr. Dwight Waters IG % 0.2 % Normal 0.0-0.5 [facility] Comment on above: Performed By: #### C BC #### [facility] [address] [place] [address] Dr. Dwight Waters LYMPH # 1.5 103/ul Normal 1.2-3.8 [facility] Comment on above: Performed By: #### C BC #### [facility] [address] [place] [address] Dr. Dwight Waters Lymphocytes/100 WBC (Bld) 12.5 % Critically low 20.5-60.0 [facility] Comment on above: Performed By: #### C BC #### [facility] [address] [place] [address] Dr. Dwight Waters MANUAL DIFF REQ NO [facility] Comment on above: Performed By: #### C BC #### [facility] [address] [place] [address] Dr. Dwight Waters MCH (RBC) [Entitic mass] 28.6 pg Normal 25.9-34.0 [facility] Comment on above: Performed By: #### C BC #### [facility] [address] [place] [address] Dr. Dwight Waters MCHC (RBC) [Mass/Vol] 33.1 g/dL Normal 29.9-35.2 [facility] Comment on above: Performed By: #### C BC #### [facility] [address] [place] [address] Dr. Dwight Waters MCV (RBC) [Entitic vol] 86.3 fL Normal 80.0-94.0 [facility] Comment on above: Performed By: #### C BC #### [facility] [address] [place] [address] Dr. Dwight Waters MONO # 1.0 103/ul Critically high 0.3-0.8 [facility] Comment on above: Performed By: #### C BC #### [facility] [address] [address] [address] Dwight Waters Monocytes/100 WBC (Bld) 8.2 % Normal 1.7-12.0 [facility] Comment on above: Performed By: #### C BC #### [facility] [address] [address] [address] Dwight Waters NEUT # 9.1 103/ul Critically high 1.4-6.5 [facility] Comment on above: Performed By: #### C BC #### [facility] [address] [address] [address] Dwight Waters Neutrophils/100 WBC (Bld) 78.0 % Critically high 43.0-75.0 [facility] Comment on above: Performed By: #### C BC #### [facility] [address] [place] [address] Dr. Dwight Waters Platelet mean volume (Bld) [Entitic vol] 9.8 fL Normal 9.5-13.5 [facility] Comment on above: Performed By: #### C BC #### [facility] [address] [address] [address] Dwight Waters PLT 251 103/ul Normal 150-450 [facility] Comment on above: Performed By: #### C BC #### [facility] [address] [place] [address] Dr. Dwight Waters RBC 5.04 106/ul Normal 4.70-6.10 [facility] Comment on above: Performed By: #### C BC #### [facility] [address] [place] [address] Dr. Dwight Waters WBC 11.6 103/ul Critically high 4.0-11.0 [facility] Comment on above: Performed By: #### C BC #### [facility] [address] [place] [address] Dr. Dwight Waters CHEM 6 (LYTES, BUN CREA)on 0 05-15-2022 Anion gap [Moles/Vol] 12 mmol/L 7 - 17 mmol/L [facility] Chloride [Moles/Vol] 105 mmol/L 98 - 10 8 mmol/L [facility] CO2 [Moles/Vol] 26 mmol/L 21 - 31 mmol/L [facility] Creatinine [Mass/Vol] 2.85 mg/dL High 0.70 - 1.30 mg/dL [facility] GFR/1.73 sq M.predicted CKD-EPI (S/P/Bld) [Vol rate/Area] 26 Low >=60 mL/min/1.73m2 [facility] Comment on above: Reported eGFR is bas ed on the CKD-EPI 2020 equation using creatinine, age, and sex. Potassium [Moles/Vol] 4.6 mmol/L 3.5 - 5.0 mmol/L [facility] Sodium [Moles/Vol] 138 mmol/L 135 - 145 mmol/L [facility] Urea nitrogen [Mass/Vol] 32 mg/dL High 7 - 25 mg/dL [facility] Urea nitrogen/Creatinine [Mass ratio] 11 mg/[facility]/PELVIS WO CONon 05-15 CT ABD/PELVIS [...] transplanted kidney with moderate right-sided hydronephrosis. Atrophic prairie band kidneys with moderate right-sided hydronephrosis. Multiple nonobstructive [...] transplanted kidney with moderate right-sided hydronephrosis. Atrophic prairie band kidneys with moderate right-sided hydronephrosis. Multiple nonobstructive right renal calculi measuring up to 8 mm. FOLLOW-UP: Follow-up as clinically indicated. Electronically authenticated by: LYNDSAY JEAN Date: 2022-05-15 05:04 Normal [facility] Covid-19 PCR (CVDTB)on 04-30 SARS-CoV-2 (COVID-19) RNA ESTELITA+probe Ql (Unsp spec) Not detected Normal NOT DETECTED [facility] Comment on above: Result Comment: When diagnostic [...] for this test is supported by the Consultative Sales Associate of Health and Human Service's declaration that [...] used). Performed By: #### U RTPCR #### [facility] [address] [address] [address] Dwight Waters GLUCOSEon 05-15-2022 Glucose [Mass/Vol] 141 mg/dL High 70 - 99 mg/dL [facility] GOLD TOP TUBEon 05-15-2022 [facility] HEPATIC FUNCTION PANELon Albumin [Mass/Vol] 4.3 g/dL 3.5 - 5.0 g/dL [facility] ALP [Catalytic activity/Vol] 85 U/L 32 - 126 U/L [facility] ALT [Catalytic activity/Vol] 13 U/L 10 - 52 U/L [facility] AST [Catalytic activity/Vol] 15 U/L 10 - 39 U/L [facility] Bilirubin [Mass/Vol] 0.8 mg/dL <1.5 [facility] Bilirubin.direct [Mass/Vol] 0.2 mg/dL <0.3 [facility] Interpretation and review of laboratory results Normal [facility] Protein [Mass/Vol] 7.3 g/dL 6.4 - 8.3 g/dL [facility] LIPASEon 05-15-2022 Lipase [Catalytic activity/Vol] 8 U/L Low 11 - 82 U/L [facility] No Panel Informationon 05-15 Interpretation and review of laboratory results Abnormal [facility] PROF 14(COMP METB)on 022 Albumin [Mass/Vol] 3.8 g/dL Normal 3.4-5.0 [facility] Comment on above: Performed By: #### U RTPCR #### [facility] [address] [place] [address] Dr. Dwight Waters Albumin/Globulin [Mass ratio] 1.1 {ratio} Normal [facility] Comment on above: Performed By: #### U RTPCR #### [facility] [address] [place] [address] Dr. Dwight Waters ALP [Catalytic activity/Vol] 92 U/L Normal 46-116 [facility] Comment on above: Performed By: #### U RTPCR #### [facility] [address] [place] [address] Dr. Dwight Waters ALT [Catalytic activity/Vol] 25 U/L Normal 16-63 [facility] Comment on above: Performed By: #### U RTPCR #### [facility] [address] [place] [address] Dr. Dwight Waters Anion gap [Moles/Vol] 14.6 mmol/L Normal [facility] Comment on above: Performed By: #### U RTPCR #### [facility] [address] [address] [address] Dwight Waters AST [Catalytic activity/Vol] 17 U/L Normal 15-37 [facility] Comment on above: Performed By: #### U RTPCR #### [facility] [address] [address] [address] Dwight Waters Bilirubin [Mass/Vol] 0.6 mg/dL Normal 0.2-1.0 [facility] Comment on above: Performed By: #### U RTPCR #### [facility] [address] [address] [address] Dwight Waters Calcium [Mass/Vol] 9.9 mg/dL Normal 8.5-10.1 [facility] Comment on above: Performed By: #### U RTPCR #### [facility] [address] [address] [address] Dwight Waters Chloride [Moles/Vol] 106 mmol/L Normal 98-107 [facility] Comment on above: Performed By: #### U RTPCR #### [facility] [address] [address] [address] Dwight Waters CO2 [Moles/Vol] 24.2 mmol/L Normal 21.0-32.0 [facility] Comment on above: Performed By: #### U RTPCR #### [facility] [address] [address] [address] Dwight Waters Creatinine [Mass/Vol] 1.58 mg/dL Critically high 0.70-1.30 [facility] Comment on above: Performed By: #### U RTPCR #### [facility] [address] [address] [address] Dwight Waters EGFR-AF SERBIAN 56 mL/min/1.73m2 Critically low >=60 [facility] Comment on above: Performed By: #### U RTPCR #### [facility] [address] [address] [address] Dwight Waters EGFR-NON AF SERBIAN 46 mL/min/1.73m2 Critically low >=60 [facility] Comment on above: Performed By: #### U RTPCR #### [facility] [address] [address] [address] Dwight Waters Globulin (S) [Mass/Vol] 3.5 g/dL Normal [facility] Comment on above: Performed By: #### U RTPCR #### [facility] [address] [address] [address] Dwight Waters Glucose [Mass/Vol] 162 mg/dL Critically high 74-106 T [facility] Comment on above: Performed By: #### U RTPCR #### [facility] [address] [address] [address] Dwight Waters Potassium [Moles/Vol] 3.8 mmol/L Normal 3.5-5.1 [facility] Comment on above: Performed By: #### U RTPCR #### [facility] [address] [address] [address] Dwight Waters Protein [Mass/Vol] 7.3 g/dL Normal 6.4-8.2 [facility] Comment on above: Performed By: #### U RTPCR #### [facility] [address] [address] [address] Dwight Waters Sodium [Moles/Vol] 141 mmol/L Normal 136-145 [facility] Comment on above: Performed By: #### U RTPCR #### [facility] [address] [address] [address] Dwight Waters Urea nitrogen [Mass/Vol] 22.0 mg/dL Critically high 7.0-18.0 [facility] Comment on above: Performed By: #### U RTPCR #### [facility] [address] [address] [address] Dwight Waters Urea nitrogen/Creatinine [Mass ratio] 13.9 mg/mg Normal [facility] Comment on above: Performed By: #### U RTPCR #### [facility] [address] [place] [address] Dr. Dwight Waters Portable XR Chest Viewson IMPRESSION: No acute cardiopulmonary disease OLOGY EXAM: XR CHEST PORTABLE, 05/15/2022 22:52 PM COMPARISON: May 09, 2020 CLINICAL INDICATIONS: productive cough RELEVANT CLINICAL HISTORY: FINDINGS: (Adequate technique) Implanted Devices: None Thorax: No acute findings in the chest. RADIOLOGY Vladislav mOer MD - 05/15/2022 EXAM: XR CHEST PORTABLE, 05/15/2022 22:52 PM COMPARISON: May 09, 2020 CLINICAL INDICATIONS: productive cough RELEVANT CLINICAL HISTORY: FINDINGS: (Adequate technique) Implanted Devices: None Thorax: No acute findings in the chest. IMPRESSION IMPRESSION: No acute cardiopulmonary disease [facility] Radiology Study observation (narrative) [facility] Portable XR Chest ViewsOrder ed By: Vladislav Omer on 05-15-2022 [facility] URINE DIPSTICK; REFLEX MICRO SCOPY; REFLEX CULTURE PERFORMABLEon 05-15-2022 Appearance (U) Clear Clear [facility] Color (U) Yellow Yellow [facility] Glucose Test strip (U) [Mass/Vol] 100 mg/dL Abnormal Negative [facility] Interpretation and review of laboratory results Abnormal [facility] Ketones (U) [Mass/Vol] Negative Negative [facility] Leukocyte esterase Test strip Ql (U) Large Abnormal Negative [facility] Nitrite Ql (U) Negative Negative [facility] pH (U) 6.0 [pH] 5.0 - 7.0 [facility] Protein (U) [Mass/Vol] 100 mg/dL Abnormal Negative [facility] RBC (U) [#/Vol] Large Abnormal Negative [facility] Specific gravity (U) [Rel density] 1.010 [facility] Urobilinogen (U) [Mass/Vol] 0.2 E.U./dL 0.2 E.U/dL, 1.0 E.U/dL [facility] URINE MICROSCOPIC WITH REFLE X TO CULTUREOrdered By: Rey Bro on 06-16-2022 Bacteria LM Ql (Urine sed) ABSENT ABSENT [facility] Epithelial cells.squamous LM Ql (Urine sed) ABSENT 1/hpf = 1+, 2-5/hpf = 2+, 0/hpf = 0+, ABSENT [facility] Interpretation and review of laboratory results Abnormal [facility] RBC LM.HPF (Urine sed) [#/Area] /[HPF] Abnormal 0 - 2 /HPF [facility] WBC LM.HPF (Urine sed) [#/Area] 10-20 Abnormal 0 - 5 /HPF [facility] CT ABD/PELVIS WO CONon 05-12 CT ABD/PELVIS WO CON Begin Addendum #[address] Lund 3:25 PM EST 05/11/2022. Begin Addendum #2 IMPRESSION below should also contain the followin. 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 The prairie band kidneys are progressively atrophic bilaterally compared to [...] of 06/14/2020 are no longer present. The prairie band distal right ureter is decompressed beyond this [...] with surgical history for renal graft and prairie band right urinary drainage, as a discrete ureteroneocystostomy is not identified, and the graft may be draining via a ureteroureterostomy. Urology consultation recommended. 3. The prairie band kidneys are bilaterally atrophic, with right renal sinus calcifications consistent with nonobstructing right prairie band renal calculi up to 6 mm. Normal [facility] CBC AUTO DIFFon 05-11-2022 BASO # 0.1 103/ul Normal 0.0-0.1 [facility] Comment on above: Performed By: #### U RTPCR #### [facility] [address] [address] [address] Dwight Waters Basophils/100 WBC (Bld) 0.8 % Normal 0.2-2.0 [facility] Comment on above: Performed By: #### U RTPCR #### [facility] [address] [place] [address] Dr. Dwight Waters EO # 0.2 103/ul Normal 0.0-0.7 [facility] Comment on above: Performed By: #### U RTPCR #### [facility] [address] [place] [address] Dr. Dwight Waters Eosinophils/100 WBC (Bld) 2.5 % Normal 0.9-7.0 [facility] Comment on above: Performed By: #### U RTPCR #### [facility] [address] [place] [address] Dr. Dwight Waters Erythrocyte distribution width (RBC) [Ratio] 12.5 % Normal 11.0-15.0 [facility] Comment on above: Performed By: #### U RTPCR #### [facility] [address] [place] [address] Dr. Dwight Waters Hematocrit (Bld) [Volume fraction] 48.3 % Normal 42.0-54.0 [facility] Comment on above: Performed By: #### U RTPCR #### [facility] [address] [place] [address] Dr. Dwight Waters Hemoglobin (Bld) [Mass/Vol] 15.3 g/dL Normal 14.0-18.0 [facility] Comment on above: Performed By: #### U RTPCR #### [facility] [address] [place] [address] Dr. Dwight Waters IG # 0.01 10e3/ul Normal 0.00-0.03 [facility] Comment on above: Performed By: #### U RTPCR #### [facility] [address] [place] [address] Dr. Dwight Waters IG % 0.2 % Normal 0.0-0.5 [facility] Comment on above: Performed By: #### U RTPCR #### [facility] [address] [address] [address] Dwight Waters LYMPH # 1.9 103/ul Normal 1.2-3.8 [facility] Comment on above: Performed By: #### U RTPCR #### [facility] [address] [address] [address] Dwight Waters Lymphocytes/100 WBC (Bld) 29.8 % Normal 20.5-60.0 [facility] Comment on above: Performed By: #### U RTPCR #### [facility] [address] [address] [address] Dwight Waters MANUAL DIFF REQ NO Normal [facility] Comment on above: Performed By: #### U RTPCR #### [facility] [address] [place] [address] Dr. Dwight Waters MCH (RBC) [Entitic mass] 28.2 pg Normal 25.9-34.0 [facility] Comment on above: Performed By: #### U RTPCR #### [facility] [address] [place] [address] Dr. Dwight Waters MCHC (RBC) [Mass/Vol] 31.7 g/dL Normal 29.9-35.2 [facility] Comment on above: Performed By: #### U RTPCR #### [facility] [address] [place] [address] Dr. Dwight Waters MCV (RBC) [Entitic vol] 89.1 fL Normal 80.0-94.0 [facility] Comment on above: Performed By: #### U RTPCR #### [facility] [address] [place] [address] Dr. Dwight Waters MONO # 0.6 103/ul Normal 0.3-0.8 [facility] Comment on above: Performed By: #### U RTPCR #### [facility] [address] [place] [address] Dr. Dwight Waters Monocytes/100 WBC (Bld) 9.0 % Normal 1.7-12.0 [facility] Comment on above: Performed By: #### U RTPCR #### [facility] [address] [place] [address] Dr. Dwight Waters NEUT # 3.6 103/ul Normal 1.4-6.5 [facility] Comment on above: Performed By: #### U RTPCR #### [facility] [address] [place] [address] Dr. Dwight Waters Neutrophils/100 WBC (Bld) 57.7 % Normal 43.0-75.0 [facility] Comment on above: Performed By: #### U RTPCR #### [facility] [address] [place] [address] Dr. Dwight Waters Platelet mean volume (Bld) [Entitic vol] 9.9 fL Normal 9.5-13.5 [facility] Comment on above: Performed By: #### U RTPCR #### [facility] [address] [place] [address] Dr. Dwight Waters PLT 249 103/ul Normal 150-450 [facility] Comment on above: Performed By: #### U RTPCR #### [facility] [address] [place] [address] Dr. Dwight Waters RBC 5.42 106/ul Normal 4.70-6.10 [facility] Comment on above: Performed By: #### U RTPCR #### [facility] [address] [place] [address] Dr. Dwight Waters WBC 6.3 103/ul Normal 4.0-11.0 [facility] Comment on above: Performed By: #### U RTPCR #### [facility] [address] [place] [address] Dr. Dwight Waters ER URINE PROFILEon 2 Bilirubin Ql (U) Unable to perform testing due to color interference. Abnormal NEGATIVE [facility] Comment on above: Performed By: #### U RTPCR #### [facility] [address] [place] [address] Dr. Dwight Waters Clarity (U) TURBID Abnormal CLEAR [facility] Comment on above: Performed By: #### U RTPCR #### [facility] [address] [place] [address] Dr. Dwight Waters Color (U) RED Abnormal YELLOW [facility] Comment on above: Performed By: #### U RTPCR #### [facility] [address] [place] [address] Dr. Dwight Waters ERUAHJenna A micrscopic examination will be performed if indicated. Normal [facility] Comment on above: Performed By: #### U RTPCR #### [facility] [address] [place] [address] Dr. Dwight Waters Glucose Ql (U) Unable to perform testing due to color interference. Abnormal NEGATIVE [facility] Comment on above: Performed By: #### U RTPCR #### [facility] [address] [place] [address] Dr. Dwight Waters Hemoglobin Ql (U) Unable to perform testing due to color interference. Abnormal NEGATIVE [facility] Comment on above: Performed By: #### U RTPCR #### [facility] [address] [place] [address] Dr. Dwight Waters Ketones Ql (U) Unable to perform testing due to color interference. Abnormal NEGATIVE [facility] Comment on above: Performed By: #### U RTPCR #### [facility] [address] [place] [address] Dr. Dwight Waters LEUKOCYTES Unable to perform testing due to color interference. Abnormal NEGATIVE [facility] Comment on above: Performed By: #### U RTPCR #### [facility] [address] [place] [address] Dr. Dwight Waters Nitrite Ql (U) Unable to perform testing due to color interference. Abnormal NEGATIVE [facility] Comment on above: Performed By: #### U RTPCR #### [facility] [address] [place] [address] Dr. Dwight Waters pH (U) 6.5 [pH] Normal 5-9 [facility] Comment on above: Performed By: #### U RTPCR #### [facility] [address] [place] [address] Dr. Dwight Waters SPEC GRAVITY 1.020 Normal 1.005-<=1.025 [facility] Comment on above: Performed By: #### U RTPCR #### [facility] [address] [place] [address] Dr. Dwight Waters UA PROTEIN Unable to perform testing due to color interference. Normal NEGATIVE/ TRACE [facility] Comment on above: Performed By: #### U RTPCR #### [facility] [address] [place] [address] Dr. Dwight Waters UR MICRO IND INDICATED Normal [facility] Comment on above: Performed By: #### U RTPCR #### [facility] [address] [place] [address] Dr. Dwight Waters UROBILINOGEN Unable to perform testing due to color interference. Normal 0.2 - 1.0 [facility] Comment on above: Performed By: #### U RTPCR #### [facility] [address] [place] [address] Dr. Dwight Waters PROF 14(COMP METB)on 022 Albumin [Mass/Vol] 3.8 g/dL Normal 3.4-5.0 [facility] Comment on above: Performed By: #### C MP #### [facility] [address] [place] [address] Dr. Dwight Waters Albumin/Globulin [Mass ratio] 1.1 {ratio} Normal [facility] Comment on above: Performed By: #### C MP #### [facility] [address] [place] [address] Dr. Dwight Waters ALP [Catalytic activity/Vol] 106 U/L Normal 46-116 [facility] Comment on above: Performed By: #### C MP #### [facility] [address] [place] [address] Dr. Dwight Waters ALT [Catalytic activity/Vol] 30 U/L Normal 16-63 [facility] Comment on above: Performed By: #### C MP #### [facility] [address] [place] [address] Dr. Dwight Waters Anion gap [Moles/Vol] 11.7 mmol/L Normal [facility] Comment on above: Performed By: #### C MP #### [facility] [address] [address] [address] Dwight Waters AST [Catalytic activity/Vol] 16 U/L Normal 15-37 [facility] Comment on above: Performed By: #### C MP #### [facility] [address] [place] [address] Dr. Dwight Waters Bilirubin [Mass/Vol] 0.6 mg/dL Normal 0.2-1.0 [facility] Comment on above: Performed By: #### C MP #### [facility] [address] [place] [address] Dr. Dwight Waters Calcium [Mass/Vol] 9.1 mg/dL Normal 8.5-10.1 [facility] Comment on above: Performed By: #### C MP #### [facility] [address] [place] [address] Dr. Dwight Waters CO2 [Moles/Vol] 27.4 mmol/L Normal 21.0-32.0 [facility] Comment on above: Performed By: #### C MP #### [facility] [address] [place] [address] Dr. Dwight Waters Creatinine [Mass/Vol] 1.18 mg/dL Normal 0.70-1.30 [facility] Comment on above: Performed By: #### C MP #### [facility] [address] [place] [address] Dr. Dwight Waters EGFR-AF SERBIAN >60 Normal >=60 [facility] Comment on above: Performed By: #### C MP #### [facility] [address] [place] [address] Dr. Dwight Waters EGFR-NON AF SERBIAN >60 Normal >=60 [facility] Comment on above: Performed By: #### C MP #### [facility] [address] [place] [address] Dr. Dwight Waters Globulin (S) [Mass/Vol] 3.6 g/dL Normal [facility] Comment on above: Performed By: #### C MP #### [facility] [address] [place] [address] Dr. Dwight Waters Glucose [Mass/Vol] 192 mg/dL Critically high 74-106 T [facility] Comment on above: Performed By: #### C MP #### [facility] [address] [place] [address] Dr. Dwight Waters Potassium [Moles/Vol] 4.1 mmol/L Normal 3.5-5.1 [facility] Comment on above: Performed By: #### C MP #### [facility] [address] [place] [address] Dr. Dwight Waters Protein [Mass/Vol] 7.4 g/dL Normal 6.4-8.2 [facility] Comment on above: Performed By: #### C MP #### [facility] [address] [place] [address] Dr. Dwight Waters Sodium [Moles/Vol] 142 mmol/L Normal 136-145 [facility] Comment on above: Performed By: #### C MP #### [facility] [address] [place] [address] Dr. Dwight Waters Urea nitrogen [Mass/Vol] 17.0 mg/dL Normal 7.0-18.0 [facility] Comment on above: Performed By: #### C MP #### [facility] [address] [place] [address] Dr. Dwight Waters Urea nitrogen/Creatinine [Mass ratio] 14.4 mg/mg Normal [facility] Comment on above: Performed By: #### C MP #### [facility] [address] [place] [address] Dr. Dwight Waters URINE MICROSCOPIC ONLYon BACTERIA NONE SEEN Normal NONE SEEN [facility] Comment on above: Performed By: #### U RTPCR #### [facility] [address] [place] [address] Dr. Dwight Waters Bacteria identified Cx Nom (U) NOT INDICATED Normal [facility] Comment on above: Performed By: #### U RTPCR #### [facility] [address] [place] [address] Dr. Dwight Waters CAST NONE SEEN Normal NONE SEEN [facility] Comment on above: Performed By: #### U RTPCR #### [facility] [address] [address] [address] Dwight Waters Crystals LM Nom (Urine sed) NONE SEEN Normal NONE SEEN [facility] Comment on above: Performed By: #### U RTPCR #### [facility] [address] [place] [address] Dr. Dwight Waters Epithelial cells LM Ql (Urine sed) RARE Normal NONE SEEN /RARE [facility] Comment on above: Performed By: #### U RTPCR #### [facility] [address] [place] [address] Dr. Dwight Waters MUCOUS NONE SEEN Normal NONE SEEN [facility] Comment on above: Performed By: #### U RTPCR #### [facility] [address] [place] [address] Dr. Dwight Waters RBC (U) [#/Vol] /uL Abnormal 0-2 [facility] Comment on above: Performed By: #### U RTPCR #### [facility] [address] [place] [address] Dr. Dwight Waters WBC NONE SEEN Normal NONE SEEN [facility] Comment on above: Performed By: #### U RTPCR #### [facility] [address] [place] [address] Dr. Dwight Waters K (Potassium)on 01-06-2020 Potassium [Moles/Vol] 4.4 mmol/L Normal 3.7-5.3 [facility] Comment on above: Performed By: #### K #### [facility] [address] [place] [address] Store Operations Manager: Kehinde Woodward MD Potassiumon 01-06-2020 Potassium [Moles/Vol] 4.4 mmol/L 3.7 - 5.3 mmol/L [facility] Work Phone: Hemoglobin and Hematocrit, B lojania 10-24-2019 Hematocrit (Bld) [Volume fraction] 23.6 % Low 40.7 - 50.3 % [facility], [place] Hemoglobin (Bld) [Mass/Vol] 7.3 g/dL Low 13 - 17 g/dL [place] Interpretation and review of laboratory results Abnormal [place], [place] Hgb/Hcton 10-24-2019 Hematocrit (Bld) [Volume fraction] 23.6 % Low 40.7-50.3 [facility] Comment on above: Performed By: #### H H #### [facility] [address] [place] [address] Store Operations Manager: Kehinde Woodward MD Hemoglobin (Bld) [Mass/Vol] 7.3 g/dL Low 13.0-17.0 [facility] Comment on above: Performed By: #### H H #### [facility] [address] [place] [address] Store Operations Manager: Kehinde Woodward MD Hemoglobinon 08-27-2019 Hemoglobin (Bld) [Mass/Vol] 7.5 g/dL Low 13.0-17.0 [facility] Comment on above: Performed By: #### H GB #### [facility] [address] [place] [address] Store Operations Manager: Kehinde Woodward MD Hemoglobin (Bld) [Mass/Vol] 7.5 g/dL Low 13 - 17 g/dL [place], [place] Interpretation and review of laboratory results Abnormal [place] Hemoglobinon 08-08-2019 Hemoglobin (Bld) [Mass/Vol] 8.3 g/dL Low 13.0-17.0 [facility] Comment on above: Performed By: #### H GB #### [facility] [address] [place] [address] Store Operations Manager: Kehinde Woodward MD Hemoglobin (Bld) [Mass/Vol] 8.3 g/dL Low 13 - 17 g/dL [place], [place] Interpretation and review of laboratory results Abnormal [place] Hemoglobinon 08-04-2019 Hemoglobin (Bld) [Mass/Vol] 8.0 g/dL Low 13.0-17.0 [facility] Comment on above: Performed By: #### H GB #### [facility] [address] [place] [address] Store Operations Manager: Kehinde Woodward MD Hemoglobin A1Con 08-03-2019 HbA1c (Bld) [Mass fraction] % Low 4.8-5.9 [facility] Comment on above: Result Comment: The ADA and AACC recommend providing the estimated average glucose result to permit better patient understanding of their HBA1c result. Performed By: #### G LYHGB #### [facility] [address] [place] [address] Store Operations Manager: Kehinde Woodward MD Glucose [Mass/Vol] mg/dL mg/dL [place], [place] Comment on above: The ADA and AACC rec ommend providing the estimated average glucose result to permit better patient understanding of their HBA1c result. HbA1c (Bld) [Mass fraction] % Low 4.8 - 5.9 % [place], [place] Interpretation and review of laboratory results Abnormal [place] Hemoglobinon 08-01-2019 Hemoglobin (Bld) [Mass/Vol] 8.1 g/dL Low 13.0-17.0 [facility] Comment on above: Performed By: #### H GB #### [facility] [address] [place] [address] Store Operations Manager: Kehinde Woodward MD Hemoglobin (Bld) [Mass/Vol] 8.1 g/dL Low 13 - 17 g/dL [place], [place] Interpretation and review of laboratory results Abnormal [place], [place] Hgb/Hcton 06-10-2019 Hematocrit (Bld) [Volume fraction] 24.3 % Low 40.7-50.3 [facility] Comment on above: Performed By: #### H H #### [facility] [address] [place] [address] Store Operations Manager: Kehinde Woodward MD Hemoglobin (Bld) [Mass/Vol] 7.4 g/dL Low 13.0-17.0 [facility] Comment on above: Performed By: #### H H #### [facility] [address] [place] [address] Store Operations Manager: Kehinde Woodward MD Hemoglobinon 06-01-2019 Hemoglobin (Bld) [Mass/Vol] 7.2 g/dL Low 13.0-17.0 [facility] Comment on above: Performed By: #### H GB #### [facility] [address] [place] [id number] Store Operations Manager: Kehinde Woodward MD K (Potassium)on 01-14-2019 Potassium [Moles/Vol] 3.6 mmol/L Low 3.7-5.3 [facility] Comment on above: Performed By: #### K #### [facility] [address] [place], [place] [id number] Store Operations Manager: Kehinde Woodward MD Otheron 10-19-2018 IMPRESSION: 1. [...] characteristics determined by Toxicology Laboratory at [facility]. It has not been cleared or approved [...] Amitriptyline(50), Amphetamine(250), Atenolol(500), Barbiturates(1000), Benzoylecgonine(50), Buprenorphine(50), Bupropion(25), Caffeine(90703), Chlordiazepoxide(50), Chlorpheniramine(100), Chlorpromazine(50), Citalopram(100), Clonazepam(200), Cocaine(25), Codeine(200), [...] LAB, [facility] TOXICOLOGY SCREEN URINE - [facility] 10-12-2018 Drugs identified Screen Nom (U) For Medical Purposes Only, Non-forensic, screen results are presumptive. No confirmatory testing will follow. Invalid Interpretation Code LAB, [facility] Comment on above: This Liquid Chromato graphy Mass Spectrometry (LC/MS/MS) test was developed and its performance characteristics determined by Toxicology Laboratory at [facility]. It has not been cleared or approved [...] Amitriptyline(50), Amphetamine(250), Atenolol(500), Barbiturates(200), Benzoylecgonine(50), Buprenorphine(500), Bupropion(25), Caffeine(97809), Cannabinoids(THC)(50), Chlordiazepoxide(50), Chlorpheniramine(100), Chlorpromazine(50), Citalopram(100), Clonazepam(200), Cocaine(25), [...] 97.81 [degF] Steve Farrari MBBS Work Phone: [facility] 09-11-2023 10:31-0400 Diastolic blood pressure 66 mm[Hg] Steve Yeison MBBS Work Phone: [facility] 09-11-2023 10:31-0400 Heart rate 70 /min Steve Yeison MBBS Work Phone: [facility] 09-11-2023 10:31-0400 Respiratory rate 20 /min Steve Yeison MBBS Work Phone: [facility] 09-11-2023 10:31-0400 SaO2% (BldA) [Mass fraction] 91 % Steve Yeison MBBS Work Phone: [facility] 09-11-2023 10:31-0400 Systolic blood pressure 129 mm[Hg] Steve Yeison MBBS Work Phone: [facility] 09-10-2023 15:50-0400 Body mass index (BMI) [Ratio] 31.99 kg/m2 Steve Yeison MBBS Work Phone: [facility] 09-10-2023 15:50-0400 Body weight 92.67 kg Steve Yeison MBBS Work Phone: [facility] 09-02-2023 07:32-0400 Body height 170.2 cm Steve Yeison MBBS Work Phone: [facility] 08-28-2023 13:33-0400 Body height 170.2 cm Steve Yeison MBBS Work Phone: [facility] 08-28-2023 13:33-0400 Body mass index (BMI) [Ratio] 32.12 kg/m2 Steve Yeison MBBS Work Phone: [facility] 08-28-2023 13:33-0400 Body temperature 97.3 [degF] Steve Yeison MBBS Work Phone: [facility] 08-28-2023 13:33-0400 Body weight 93.03 kg Steve Yeison MBBS Work Phone: [facility] 08-28-2023 13:33-0400 Diastolic blood pressure 41 mm[Hg] Steve Yeison MBBS Work Phone: [facility] 08-28-2023 13:33-0400 Heart rate 116 /min Steve Yeison MBBS Work Phone: [facility] 08-28-2023 13:33-0400 Systolic blood pressure 106 mm[Hg] Steve Yeison MBBS Work Phone: [facility] 06-12-2023 14:50-0400 Body mass index (BMI) [Ratio] 33.8 kg/m2 Rebeca Olsen [employer] CARD COLLECTION CLERK-[employer] Work Phone: [facility] 06-12-2023 14:50-0400 Body temperature 97.3 [degF] Rebeca Olsen BANK CREDIT CARD COLLECTION CLERK-HAND BOOKED [employer]DER [employer]ER Work Phone: [facility] 06-12-2023 14:50-0400 Body weight 97.89 kg Rebeca Olsen BANK CREDIT CARD COLLECTION CLERK-HAND BOOKED [employer]ER Work Phone: [facility] 06-12-2023 14:50-0400 Diastolic blood pressure 77 mm[Hg] Rebeca Olsen BANK CREDIT CARD COLLECTION CLERK-HAND BOOKED F[employer]DER [employer]ER Work Phone: [facility] 06-12-2023 14:50-0400 Heart rate 76 /min Rebeca Olsen BANK CREDIT CARD COLLECTION CLERK-HAND BOOKED [employer]DER [employer]ER Work Phone: [facility] 06-12-2023 14:50-0400 Systolic blood pressure 146 mm[Hg] Rebeca Olsen BANK CREDIT CARD COLLECTION CLERK-HAND BOOKED F[employer]DER AND [employer]ER Work Phone: [facility] 01-16-2023 08:57-0500 Body height 170.2 cm [facility] Work Phone: [facility] 01-16-2023 08:57-0500 Body mass index (BMI) [Ratio] 33.66 kg/m2 [facility] Work Phone: [facility] 01-16-2023 08:57-0500 Body temperature 97.3 [degF] [facility] Work Phone: [facility] 01-16-2023 08:57-0500 Body weight 97.48 kg [facility] Work Phone: [facility] 01-16-2023 08:57-0500 Diastolic blood pressure 75 mm[Hg] [facility] Work Phone: [facility] 01-16-2023 08:57-0500 Heart rate 76 /min [facility] Work Phone: [facility] 01-16-2023 08:57-0500 Systolic blood pressure 142 mm[Hg] [facility] Work Phone: [facility] 09-10-2022 09:38-0400 Body height 170.2 cm Ryan Yepez MD Work Phone: [facility] 09-10-2022 09:38-0400 Body mass index (BMI) [Ratio] 33.67 kg/m2 Ryan Yepez MD Work Phone: [facility] 09-10-2022 09:38-0400 Body weight 97.52 kg Ryan Yeepz MD Work Phone: [facility] 09-10-2022 09:38-0400 Diastolic blood pressure 83 mm[Hg] Ryan Yepez MD Work Phone: [facility] 09-10-2022 09:38-0400 Heart rate 64 /min Ryan Yepez MD Work Phone: [facility] 09-10-2022 09:38-0400 SaO2% (BldA) [Mass fraction] 96 % Ryan Yepez MD Work Phone: [facility] 09-10-2022 09:38-0400 Systolic blood pressure 129 mm[Hg] Ryan Yepez MD Work Phone: [facility] 07-07-2022 13:48-0400 Diastolic blood pressure 76 mm[Hg] Ryan eYpez MD Work Phone: [facility] 07-07-2022 13:48-0400 Heart rate 82 /min Ryan Yepez MD Work Phone: [facility] 07-07-2022 13:48-0400 SaO2% (BldA) [Mass fraction] 96 % Ryan Yepez MD Work Phone: [facility] 07-07-2022 13:48-0400 Systolic blood pressure 141 mm[Hg] Ryan Yepez MD Work Phone: [facility] 06-27-2022 13:32-0400 Body height 170.2 cm Ryan Yepez MD Work Phone: [facility] 06-27-2022 13:32-0400 Body mass index (BMI) [Ratio] 34.24 kg/m2 Ryan Yepez MD Work Phone: [facility] 06-27-2022 13:32-0400 Body temperature 98.6 [degF] Ryan Yepez MD Work Phone: [facility] 06-27-2022 13:32-0400 Body weight 99.16 kg Ryan Yepez MD Work Phone: [facility] 06-27-2022 13:32-0400 Diastolic blood pressure 78 mm[Hg] Ryan Yepez MD Work Phone: [facility] 06-27-2022 13:32-0400 Heart rate 77 /min Ryan Yepez MD Work Phone: [facility] 06-27-2022 13:32-0400 SaO2% (BldA) [Mass fraction] 95 % Ryan Yepez MD Work Phone: [facility] 06-27-2022 13:32-0400 Systolic blood pressure 121 mm[Hg] Ryan Yepez MD Work Phone: [facility] 06-27-2022 10:52-0400 Body height 170.2 cm Rena Brewster RN [facility] 06-27-2022 10:52-0400 Body mass index (BMI) [Ratio] 34.46 kg/m2 Rena Brewster RN [facility] 06-27-2022 10:52-0400 Body temperature 98.2 [degF] Rena Brewster RN [facility] 07-29-2022 10:52-0400 Body weight 99.79 kg Rena Brewster RN [facility] 06-27-2022 10:52-0400 Diastolic blood pressure 73 mm[Hg] Rena Brewster RN [facility] 06-27-2022 10:52-0400 Heart rate 78 /min Rena Brewster RN [facility] 06-27-2022 10:52-0400 Respiratory rate 20 /min Rena Brewster RN [facility] 06-27-2022 10:52-0400 SaO2% (BldA) [Mass fraction] 97 % Rena Brewster RN [facility] 06-27-2022 10:52-0400 Systolic blood pressure 135 mm[Hg] Rena Brewster RN [facility] 06-12-2022 14:23-0400 Body mass index (BMI) [Ratio] 34.59 kg/m2 Steve Yeison MBBS Work Phone: [facility] 06-12-2022 14:23-0400 Body temperature 97 [degF] Steve Yeison MBBS Work Phone: [facility] 06-12-2022 14:23-0400 Body weight 100.2 kg Steve Yeison MBBS Work Phone: [facility] 06-12-2022 14:23-0400 Diastolic blood pressure 66 mm[Hg] Steve Yeison MBBS Work Phone: [facility] 06-12-2022 14:23-0400 Heart rate 63 /min Steve Yeison MBBS Work Phone: [facility] 06-12-2022 14:23-0400 Systolic blood pressure 133 mm[Hg] Steve Yeison MBBS Work Phone: [facility] 05-20-2022 15:21-0400 Body temperature 97.9 [degF] Gian Villatoro MD Work Phone: [facility] 05-20-2022 15:21-0400 Diastolic blood pressure 64 mm[Hg] Gian Villatoro MD Work Phone: 2(074)954-436948 [place] [address] 05-20-2022 15:21-0400 Heart rate 55 /min Gian Villatoro MD Work Phone: 5(142)[phone] [place] [address] 05-20-2022 15:21-0400 Respiratory rate 15 /min Gian Villatoro MD Work Phone: 3(394)[phone] [place] [address] 05-20-2022 15:21-0400 SaO2% (BldA) [Mass fraction] 95 % Gian Villatoro MD Work Phone: 3(424)[phone] [place] [address] 05-20-2022 15:21-0400 Systolic blood pressure 145 mm[Hg] Gian Villatoro MD Work Phone: 5(432)[phone] [place] [address] 05-19-2022 12:15-0400 Body mass index (BMI) [Ratio] 35.87 kg/m2 Gian Villatoro MD Work Phone: 5(683)134-898048 [place] [address] 05-19-2022 12:15-0400 Body weight 103.92 kg Gian Villatoro MD Work Phone: 2([phone])[phone] [place] [address] Comment on above: standing scale 05-16-2022 16:19-0400 Body height 170.2 cm Gian Villatoro MD Work Phone: 7([phone])[phone] [place] [address] 10-19-2018 08:44-0500 BMI (Body Mass Index) 26.58 kg/m2 [facility] Work Phone: 10-19-2018 08:44-0500 BP Diastolic 76 mm[Hg] [facility] Work Phone: 10-19-2018 08:44-0500 BP Systolic 144 mm[Hg] [facility] Work Phone: 10-19-2018 08:44-0500 Height 172.[address] [facility] Work Phone: 10-19-2018 08:44-0500 Pulse (Heart Rate) 92 /min [facility] Work Phone: 10-19-2018 08:44-0500 Pulse Oximetry 99 % [facility] Work Phone: 10-19-2018 08:44-0500 Respiratory Rate 16 /min [facility] Work Phone: 10-19-2018 08:44-0500 Weight 79.[address] [facility] Work Phone: 10-12-2018 09:50-0500 BMI (Body Mass Index) 27.24 kg/m2 [facility] Work Phone: 10-12-2018 09:50-0500 Body Temperature 98.6 [degF] [facility] Work Phone: 10-12-2018 09:50-0500 BP Diastolic 80 mm[Hg] [facility] Work Phone: 10-12-2018 09:50-0500 BP Systolic 157 mm[Hg] [facility] Work Phone: 10-12-2018 09:50-0500 Height 169.5 cm [facility] Work Phone: 10-12-2018 09:50-0500 Pulse (Heart Rate) 94 /min [facility] Work Phone: 10-12-2018 09:50-0500 Weight 78.29 kg Alfredito Restrepo [facility] Work Phone: Encounters Encounter Date Encounter Type Care Provider Facility Start: 11-03-2023 End: 11-03-2023 ambulatory ZULY BRUNO Not Available Start: 10-06-2023 ambulatory Angel Carpio [facility],PharmD Pharmacy [facility] Start: 10-06-2023 Patient encounter procedure Angel Carpio [facility],PharmD Pharm[facility] Start: 09-29-2023 [facility] Start: 09-24-2023 [facility] Start: 09-23-2023 [facility] Start: 09-15-2023 [facility] Start: 08-28-2023 End: 09-11-2023 Evaluation and management of inpatient STEVE S YEISON Facility:[facility] Start: 08-28-2023 End: 09-11-2023 Evaluation and management of inpatient Steve S Yeison MBBS Work Phone: [id number] Start: 08-28-2023 ambulatory STEVE S YEISON Facility:[facility] Start: 08-28-2023 End: 08-28-2023 Office outpatient visit 25 minutes Steve S Yeison MBBS Work Phone: [facility] Comment on above: Immunosuppressed sta tus (Primary Dx); Kidney replaced by transplant; Aftercare following organ transplant; High risk medication use; Other general symptoms and signs; Abnormal blood chemistry; Hypertension secondary to other renal disorders Start: 08-19-2023 ambulatory Meka rueda [facility] Start: 08-19-2023 Patient encounter procedure Meka Munoz [facility] Start: 06-12-2023 ambulatory REBECA Fisher ty:[facility] Start: 06-12-2023 End: 06-12-2023 Office outpatient visit 25 minutes Steve S Yeison MBBS Work Phone: [facility] Comment on above: 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) Start: 06-10-2023 ambulatory Maren Bar RPh,PharmD Pharmacy Outpatient [facility] Start: 06-10-2023 Patient encounter procedure Maren Bar RPh,PharmD Pharmacy Outpatient [facility] Start: 05-26-2023 [facility] Start: 04-28-2023 End: 04-29-[address] DOCTOR EVANS Facility:[facility] Start: 04-13-2023 End: 04-13-2023 ambulatory [facility] Start: 03-12-2023 ambulatory Angel Fete RPh,PharmD Pharmacy Outpatient [facility] Start: 03-12-2023 Patient encounter procedure Angel Fete RPh,PharmD Pharmacy Outpatient [facility] Start: 03-10-2023 ambulatory Angel Fete RPh,PharmD Pharmacy Outpatient [facility] Start: 03-10-2023 Patient encounter procedure Angel Fete RPh,PharmD Pharmacy Outpatient [facility] Start: 03-02-2023 End: 03-03-[address] DOCTOR EVANS Facility:[facility] Start: 01-16-2023 [facility] Start: 01-16-2023 End: 01-16-2023 Office outpatient visit 25 minutes Daisha Max DO Work Phone: [facility] Comment on above: Abnormal blood chemi stry [...] MD Work Phone: [facility] Comment on above: BPH with obstruction /lower urinary tract symptoms (Primary Dx); Encounter for screening for malignant neoplasm of prostate Start: 08-28-2022 End: 08-29-2022 ambulatory ROB ZULY BRUNO Facility:[facility] Start: 08-14-2022 End: 08-15-[address] DOCTOR EVANS Facility:[facility] Start: 07-07-2022 End: 07-07-2022 Patient encounter procedure Ryan Yepez MD Work Phone: [facility] Comment on above: Other hydronephrosis (Primary Dx); [...] MD Work Phone: [facility] Comment on above: Other hydronephrosis (Primary Dx) [...] Phone: [facility] Comment on above: Immunosuppressed sta tus (Primary [...] of inpatient Gian Villatoro MD Work Phone: [id number] Comment on above: [facility] Start: 05-15-2022 End: 05-15-[address] GEORGE ALEXANDER Facility:[facility] Start: 05-11-2022 End: 05-11-[address] GEORGE ALEXANDER Facility:[facility] Start: 03-14-2022 ambulatory Comfort Rivera [facility] Work Phone: [facility] Start: 03-14-2022 Patient encounter procedure Comfort Rivera [facility] Work Phone: [facility] Start: 06-14-2021 End: 06-14-2021 ambulatory Comfort Chinedu Rivera [facility] Work Phone: [facility] Start: 06-14-2021 Patient encounter procedure Comfort Chinedu Rivera [facility] Work Phone: [facility] Start: 01-20-2020 End: 01-27-2020 Patient encounter procedure PEPE CASE Facility:[facility] Start: 01-06-2020 End: 01-07-2020 Patient encounter procedure [facility] Start: 01-06-2020 End: 01-06-2020 Subsequent hospital visit by physician [facility] Start: 10-24-2019 End: 10-25-2019 [facility] Start: 10-24-2019 End: 10-24-2019 Subsequent hospital visit by physician [facility] Start: 08-27-2019 End: 08-28-2019 Patient encounter procedure [facility] Start: 08-27-2019 End: 08-27-2019 Subsequent hospital visit by physician [facility] Start: 08-08-2019 End: 08-09-2019 Patient encounter procedure ROB PATINO [facility] Start: 08-08-2019 End: 08-08-2019 Subsequent hospital visit by physician [facility] Start: 08-03-2019 End: 08-04-2019 [facility] Start: 08-03-2019 End: 08-03-2019 Subsequent hospital visit by physician [facility] Start: 08-01-2019 End: 08-02-2019 [facility] Start: 08-01-2019 End: 08-01-2019 Subsequent hospital visit by physician [facility] Start: 06-10-2019 End: 06-11-2019 Patient encounter procedure RENA GUDINO [facility] Start: 06-01-2019 End: 06-02-2019 [facility] Start: 01-14-2019 End: 01-15-2019 Patient encounter procedure RENA GUDINO [facility] Start: 11-17-2018 End: 11-17-2018 Patient encounter procedure Melania Dangelo [facility] Pre Transplant Office Comment on above: Social Work Follow-u p Start: 10-19-2018 End: 10-19-2018 Patient encounter [facility] Pre Transplant Office Comment on [...] Start: 10-13-2018 End: 10-13-2018 Patient encounter procedure [facility] Pre Transplant Office Comment on above: Reschedule Outside Medical Allan rds Request Start: 10-12-2018 End: 10-12-2018 Patient encounter procedure Sophie Raeann [facility] Pre Transplant Office Comment on [...] Start: 10-05-2018 Patient encounter status Comfort Rivera [facility] Work Phone: [facility] Procedures Date Procedure Procedure Detail Performing Clinician [...] 09-04-2023 Oscillating positive expiratory pressure (flutter) physiotherapy aLurel Serrano MD, PhD Work Phone: Start: 09-04-2023 [...] AURIS SCREEN BY PCR Carol Ann Capps BANK CREDIT CARD COLLECTION CLERK-REGIONAL SALES MANAGER Work Phone: Start: 08-28-2023 CBC AND ELECTRONIC [...] above: Performed By: #### C MP #### [facility] [address] [place] [address] Dr. Dwight Waters Start: 07-07-2022 Rmvl nfros [...] recipient S/P liver trans plant [facility] Work Phone: Start: 04-08-2020 H/O: liver recipient Liver tra nsplant recipient Comfort Rivera [facility] Work Phone: Start: 01-06-2020 Potassium serum plasma/whole [...] transplant -donor kidney transplant recipient Comfort Rivera [facility] Work Phone: Start: 06-10-2019 HEMOGLOBIN AND HEMAT OCRIT, BLOOD ROB KASMANI Start: 06-01-2019 Blood count hemoglobin ROB KASMANI Start: 03-22-2019 Lipid 1996 panel - S fabricio or Plasma Comfort Rivera [facility] Work Phone: Start: 01-14-2019 Potassium serum plasma/whole [...] Start: 10-12-2018 End: 10-12-2018 Alpha-fetoprotein serum Yovani rOr Work Phone: Start: 10-12-2018 End: 10-12-2018 Antibody cytomegalovirus cmv Yovani Orr Work Phone: Start: 10-12-2018 End: 10-12-2018 Antibody dann-montes eb virus viral capsid vca Yovani Mejias [employer] Work Phone: Start: 10-12-2018 End: 10-12-2018 Antibody herpes smplx type 1 Yovani Orr Work Phone: Start: 10-12-2018 End: 10-12-2018 Antibody rubeola Yovani Mejias [employer] Work Phone: Start: 10-12-2018 End: 10-12-2018 Antibody varicella-zoster Yovani Ru[employer] Work Phone: Start: 10-12-2018 End: 10-12-2018 Assay of ethanol Yovani Orr Work Phone: Start: 10-12-2018 End: 10-12-2018 Assay of ferritin Yovani Orr Work Phone: Start: 10-12-2018 End: 10-12-2018 Assay of iron Yovani Mejias [employer] Work Phone: Start: 10-12-2018 End: 10-12-2018 Assay of parathormone Yovani Mejias [employer] Work Phone: Start: 10-12-2018 End: 10-12-2018 Assay of phosphatase alkaline Yovani Mejias [employer] Work Phone: Start: 10-12-2018 End: 10-12-2018 Bilirubin total Yovani Orr Work Phone: Start: 10-12-2018 End: 10-12-2018 Calcium total Yovani Mejias [employer] Work Phone: Start: 10-12-2018 End: 10-12-2018 CBC, EDIF, PLATELET Yovani Orr Work Phone: Start: 10-12-2018 End: 10-12-2018 Creatinine blood Yovani Orr Work Phone: Start: 10-12-2018 End: 10-12-2018 Drug screening cannabinoids natural Yovani Orr Work Phone: Start: 10-12-2018 End: 10-12-2018 Hepatitis a antibody haab Yovani Orr Work Phone: Start: 10-12-2018 End: 10-12-2018 Hepatitis b core antibody hbcab total Yovani Mejias [employer] Work Phone: Start: 10-12-2018 End: 10-12-2018 Hepatitis b surf antibody hbsab Yovani Mejias [employer] Work Phone: Start: 10-12-2018 End: 10-12-2018 Hepatitis c antibody Yovani Mejias [employer] Work Phone: Start: 10-12-2018 End: 10-12-2018 Iaad ia hepatitis b surface antigen Yovani Mejias [employer] Work Phone: Start: 10-12-2018 End: 10-12-2018 Iaad ia hiv-1 ag w/hiv-1 & hiv-2 antbdy single Yovani Orr Work Phone: Start: 10-12-2018 End: 10-12-2018 PSA screening Yovani Orr Work Phone: Start: 10-12-2018 End: 10-12-2018 Thromboplastin time partial plasma/whole blood Yovani Orr Work Phone: Start: 10-12-2018 End: 10-12-2018 Assay of ethanol Yovani Mejias [employer] Work Phone: Start: 10-12-2018 End: 10-12-2018 Drug/substance [...] 08-31-2024 Screening for malignant neoplasm of lung [facility] Start: 06-17-2024 End: 06-17-2024 ambulatory [facility] Transplant [facility] Start: 06-17-2024 End: 06-17-2024 Patient encounter procedure [facility] Start: 03-22-2024 Fasting lipid profile LIPID SCREENING [facility] Start: 03-22-2024 Lipid panel [facility] Start: 01-15-2024 End: 01-15-2024 ambulatory [facility] Transplant [facility] Start: 01-15-2024 End: 01-15-2024 Patient encounter procedure [facility] Start: 12-08-2023 End: 09-07-2024 CT Chest WO contrast [facility] Work Phone: Start: 09-23-2023 End: 09-23-2023 ambulatory Infect[address] [facility] Start: 09-23-2023 End: 09-23-2023 Telemedicine consultation with patient 09/23/2023 4:00 PM EDT Telemedicine Infectious Diseases [facility] [address] [place] [address] Hakeem Alamo MD [address] [place] [address] [facility] Start: 09-15-2023 End: 09-10-2024 ITRACONAZOLE LEVEL [facility] Start: 08-25-2023 End: 08-25-2024 ALLOSCREEN RECIPIENT (POST TX PRA) ALLOSCREEN RECIPIENT (POST TX PRA) Lab Routine Kidney replaced by transplant Aftercare following organ transplant Immunosuppressed status High risk medication use Other general symptoms and signs Abnormal blood chemistry Expected: 08/25/2023, Expires: 08/25/2024 [facility] Comment on above: Expected: 08/25/2023, Expires: Start: 07-31-2023 Influenza vaccination [facility] Start: 06-12-2023 End: 06-12-2023 Patient encounter procedure 06/12/2023 Office Visit Transplant Surgery Steve Latham MBBS [address] [place] [address] [facility] Start: 03-11-2023 End: 03-11-2023 Telemedicine consultation with patient 03/11/2023 Telemedicine Urology Ryan Yepez MD [address] [facility] [address] [place] [address] [facility] Start: 01-16-2023 End: 01-16-2023 Patient encounter procedure 01/16/2023 Office Visit Transplant Surgery [facility] Transplant [facility] Start: 10-31-2022 End: 10-31-2022 Patient encounter procedure 10/31/2022 Office Visit Transplant Surgery Steve Latham MBBS [address] [place] [address] [facility] Start: 09-10-2022 End: 09-10-2023 PSA screening PSA, SCREENING Lab Routine BPH with obstruction/lower urinary tract symptoms Encounter for screening for malignant neoplasm of prostate Expected: 09/10/2022 (Approximate), Expires: 09/10/2023 [facility] Comment on above: Expected: 09/10/2022 (Approximate), Expi res: 09/10/2023 Start: 08-11-2022 End: 08-11-2022 Patient encounter procedure 08/11/2022 Office Visit UrologRyan Batista MD [address] [place] [address] [address] [place] [address] [facility] Start: 07-31-2022 Influenza vaccination [facility] Start: 07-07-2022 End: 07-07-2022 Patient encounter procedure 07/07/2022 Office Visit Ryan Webster MD [address] [place] [address] [address] [place] [id number] [facility] Start: 07-07-2022 End: 07-07-2023 FLUORO IMAGING FOR UROLOGY [facility] Comment on above: Expected: 07/07/2022, Expires: 3 1 Occurrences starti ng 07/07/2022 until 07/07/2022 Start: 06-27-2022 End: 06-27-2022 Patient encounter procedure 06/27/2022 Office Visit Ryan Webster MD [address] [place] [address] [address] [place] [address] [facility] Start: 06-27-2022 End: 06-27-2023 Basic metabolic 2000 panel - Serum or Plasma BASIC METABOLIC PANEL Lab Routine Other hydronephrosis Expected: 06/27/2022, Expires: 06/27/2023 [facility] Comment on above: Expected: 06/27/2022, Expires: 3 Start: 06-27-2022 End: 06-27-2022 Patient encounter procedure 06/27/2022 Appointment Computerized Tomography Scan Ryan Yepez MD [address] [facility] [address] [place] [address] Department of Radiology Start: 06-15-2022 End: 05-16-2023 CT Abdomen and Pelvis WO contrast CT ABDOMEN/PELVIS WITHOUT CONTRAST Imaging Routine FAYE (acute kidney injury) Expected: 06/15/2022 (Approximate), Expires: 05/16/2023 [facility] Work Phone: Comment on above: Expected: 06/15/2022 (Approximate), Expi res: 05/16/2023 Start: 06-12-2022 End: 06-12-2022 Patient encounter procedure 06/12/2022 Office Visit Transplant Surgery Steve Latham MBBS [address] [place] [address] [facility] Start: 06-11-2022 End: 06-11-2023 BK VIRUS DNA QN, PCR, PLASMA BK VIRUS DNA QN, PCR, PLASMA Lab Routine Kidney replaced by transplant Liver replaced by transplant Abnormal blood chemistry Expected: 06/11/2022, Expires: 06/11/2023 [facility] Comment on above: Expected: 06/11/2022, Expires: 3 Start: 06-04-2022 End: 06-04-2022 Patient encounter procedure 06/04/2022 Office Visit Interventional [facility]iology [facility] Start: 10-18-2021 End: 10-18-2021 Patient encounter procedure 10/18/2021 Office Visit Transplant Surgery Steve Latham MBBS [address] [place] [address] [facility] Transplant [facility] Start: 07-31-2021 Influenza vaccination INFLUENZA VACCINE (#1) [facility] Start: 07-26-2021 End: 07-26-2021 Patient encounter procedure 07/26/2021 Office Visit Transplant Surgery [facility] Start: 2021 Prostate specific antigen measurement [facility] Start: 2021 Screening for malignant neoplasm of lung LUNG CANCER SCREENING [facility] Start: 2021 Zoster vaccine hzv live for subcutaneous use ZOSTER (SHINGLES) VACCINE (1 of 2) [facility] Start: 09-20-2020 Colonoscopy COLORECTAL CANCER SCREENING DISCUSSION [facility] Start: 09-20-2020 Screening for malignant neoplasm of colon [facility] Start: 07-31-2019 Influenza vaccination Flu vaccine (#1) [place], [place] Start: 05-22-2019 Annual Wellness Visit (AWV) Annual Wellness Visit (AWV) [place] Start: 04-18-2019 End: 10-19-2019 Ultrasonography of abdomen US ABDOMEN RUQ/LIVER/GB Routine Cirrhosis of liver without ascites, unspecified hepatic cirrhosis type Expected: 04/18/2019 (Approximate), Expires: 10/19/2019 [facility] Work Phone: Comment on above: Expected: 04/18/2019 (Approximate), Expi res: 10/19/2019 Start: 01-25-2019 End: 01-25-2019 Ambulatory 01/25/2019 Office Visit Gastroenterology Christin Elizabeth, BANK CREDIT CARD COLLECTION CLERK-HAND BOOKED FOLDER AND STITCHER [address] [place] [address] Division of Gastroenterology and Hepatology Gavin Start: 11-19-2018 End: 11-19-2018 Ambulatory 11/19/2018 Appointment Pulmonary Diagnostics [facility] Start: 11-19-2018 End: 11-19-2018 [facility]ulatory [facility] Start: 10-19-2018 End: 10-19-2018 Ambulatory Ultrasound Jakob Start: 10-12-2018 End: 10-12-2019 Hemoglobin A1c/Hemoglobin.total mass fraction (Bld) HEMOGLOBIN A1C Routine Alcoholic cirrhosis, unspecified whether ascites present Pre-transplant evaluation for liver transplant Expected: 10/12/2018, Expires: 10/12/2019 [facility] Work Phone: Comment on above: Expected: 10/12/2018, Expires: 9 Start: 10-12-2018 End: 10-12-2019 TYPE AND SCREEN - NOT FOR TRANSFUSION TYPE AND SCREEN - NOT FOR TRANSFUSION Routine Alcoholic cirrhosis, unspecified whether ascites present Pre-transplant evaluation for liver transplant Expected: 10/12/2018, Expires: 10/12/2019 [facility] Work Phone: Comment on above: Expected: 10/12/2018, Expires: 9 Start: 07-31-2018 Influenza vaccination INFLUENZA VACCINE (#1) [facility] Work Phone: Start: 2011 Fasting lipid profile LIPID SCREENING [facility] Work Phone: Start: 2011 Lipid screen Lipid screen [place], [place] Start: 1990 DTaP/Tdap/Td vaccine (1 - Tdap) DTaP/Tdap/Td vaccine (1 - Tdap) [place], [place] Start: 1990 Hepatitis B Vaccine (1 of 3 - Risk Recombivax 3-dose series) Hepatitis B Vaccine (1 of 3 - Risk Recombivax 3-dose series) [place], [place] Start: 1990 Third diphtheria, tetanus and acellular pertussis (DTaP) vaccination [facility] Start: 1990 Zoster vaccine hzv live for subcutaneous use ZOSTER (SHINGLES) VACCINE (1 of 2) [facility] Start: 1990 [facility] Start: 1989 Tetanus vaccination TETANUS [facility] Start: 1986 HIV screen HIV screen [place], [place] Start: 02-17-1984 HIV screening HIV SCREENING DISCUSSION [facility] Work Phone: Start: 1983 COVID-19 VACCINE (1) COVID-19 VACCINE (1) [facility] Start: 1982 DTaP/Tdap/Td vaccine (1 - Tdap) DTaP/Tdap/Td vaccine (1 - Tdap) [place], [place] Start: 1977 Pneumococcal 0-64 years Vaccine (1 of 3 - PCV13) Pneumococcal 0-64 years Vaccine (1 of 3 - PCV13) [place] Start: 1977 PNEUMOCOCCAL VACCINE SERIES (1 - PCV) PNEUMOCOCCAL VACCINE SERIES (1 - PCV) [facility] Start: 1977 [facility] Start: 02-17-1976 COVID-19 VACCINE (#1) COVID-19 VACCINE (#1) [facility] Start: 02-17-1976 [facility] Start: 1971 COVID-19 VACCINE (#1) COVID-19 VACCINE (#1) [facility] Start: 1971 Hepatitis B vaccination HEP B VACCINE (1 of 3 - 3-dose series) [facility] Start: 1971 Tetanus vaccination [facility] BK VIRUS DNA QN, PCR , PLASMA BK VIRUS DNA QN, PCR, PLASMA Lab Routine Kidney replaced by transplant Liver replaced by transplant Abnormal blood chemistry 06/12/2022 3:38 PM EDT [facility] CALCULI, URINARY (KIDNEY STONE) CALCULI, URINARY (KIDNEY STONE) Fluids Routine 05/19/2022 8:16 AM EDT [facility] Work Phone: CANNABINOIDS, QUANT (URINE)THC CONFIRMATION CANNABINOIDS, QUANT (URINE)THC CONFIRMATION Routine Alcoholic cirrhosis, unspecified whether ascites present ESRD (end stage renal disease) on dialysis Pre-transplant evaluation for liver transplant 10/12/2018 12:57 PM EST [facility] Work Phone: End: 09-10-2024 CHEM 6 (LYTES, BUN CREA) [facility] EBV VCA IGG AB EBV VCA IGG AB R outine Alcoholic cirrhosis, unspecified whether ascites present ESRD (end stage renal disease) on dialysis Pre-transplant evaluation for liver transplant 10/12/2018 12:57 PM [facility] Work Phone: Fungus identified in Unspecified specimen by Culture [facility] HLA TYPING (SOLID ORGAN) HLA TYPING (SOLID ORGAN) Routine Alcoholic cirrhosis, unspecified whether ascites present ESRD (end stage renal disease) on dialysis Pre-transplant evaluation for liver transplant 10/12/2018 12:57 PM [facility] Work Phone: HSV 1 AND 2 IGG ANTIBODY HSV 1 AND 2 IGG ANTIBODY Routine Alcoholic cirrhosis, unspecified whether ascites present ESRD (end stage renal disease) on dialysis Pre-transplant evaluation for liver transplant 10/12/2018 12:57 PM [facility] Work Phone: 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 specific culture [facility] PLACEMENT NEPHROSTOM Y CATHETER PERCUTANEOUS W/ IMAGE GUIDANCE PLACEMENT NEPHROSTOMY CATHETER PERCUTANEOUS W/ IMAGE GUIDANCE Imaging Routine Hydronephrosis due to obstruction of ureteral orifice FAYE (acute kidney injury) 05/17/2022 11:08 AM EDT [facility] UT POST VOID RESIDUAL UT POST VO ID RESIDUAL UT - OFFICE PERFORMED Routine BPH with obstruction/lower urinary tract symptoms Ordered: 09/10/2022 [facility] Comment on above: Ordered: 09/10/2022 PTH INTACT PTH INTACT Routi ne Alcoholic cirrhosis, unspecified whether ascites present ESRD (end stage renal disease) on dialysis Pre-transplant evaluation for liver transplant 10/12/2018 12:57 PM [facility] Work Phone: RUBEOLA IGG AB (IMMU NE STATUS) RUBEOLA IGG AB (IMMUNE STATUS) Routine Alcoholic cirrhosis, unspecified whether ascites present ESRD (end stage renal disease) on dialysis Pre-transplant evaluation for liver transplant 10/12/2018 12:57 PM [facility] Work Phone: End: 09-10-2024 TACROLIMUS LEVEL, TROUGH (PRE DRUG LEVEL) [facility] VARICELLA IGG AB (IM M STATUS) VARICELLA IGG AB (IMM STATUS) Routine Alcoholic cirrhosis, unspecified whether ascites present ESRD (end stage renal disease) on dialysis Pre-transplant evaluation for liver transplant 10/12/2018 12:57 PM EST [facility] Work Phone: Payers Date Payer Category Payer Unknown [id number] 2019 Unknown [facility] [id number] 2019-Present [id number] 2018 Medicaid MEDICAID [facility] DEPT OF JOB xxxxxxxxxxxx 2018-Present [phone] [address] [place] [address] xxxxxxxxxxxx [id number] 2018 Medicaid MEDICAID MEDICAI D [id number] 2018-Present [address] [place] [address] [id number] .[id number] 2018 Medicaid [id number] .[id number] 2018 Medicare MEDICARE MEDICAR E PART A AND B xxxxxxxxxxx 2018-Present [phone] [address] [address] [place] [address] xxxxxxxxxxx [id number] .[id number] 2018 Medicare [id number] 2018 Medicare MEDICARE MEDICAR E A AND B [id number] 2018-Present [address] [place] [address] [id number] .[id number] 2018 Medicare [id number]. 1.13.172.2.7.3 .[id number] 1971 Unknown [id number] 2.16.840.1.571484.3.579.2.173 1971 Unknown [id number] 2.16.840.1.571876.3.579.2.173 1971 Unknown [id number] 2.16.840.1.176140.3.579.2.173 1971 Unknown [id number] 2.16.840.1.000634.3.579.2.173 1971 Unknown [id number] 2.16.840.1.660855.3.579.2.173 1971 Unknown [id number] 2.16.840.1.271234.3.579.2.173 1971 Unknown [id number] 2.16.840.1.982555.3.579.2.173 1971 Unknown [id number] 2.16.840.1.838708.3.579.2.173 1971 Unknown [id number] 2.16.840.1.549429.3.579.2.647 1971 Unknown [id number] 2.16.840.1.590879.3.579.2.593 1971 Unknown [id number] 2.16.840.1.476208.3.579.2.593 1971 Unknown [id number] 2.16.840.1.942108.3.579.2.593 1971 Unknown [id number] 2.16.840.1.699048.3.579.2.593 1971 Unknown [id number] 2.16.840.1.752786.3.579.2.593 1971 Unknown [id number] 2.16.840.1.871924.3.579.2.593 1971 Unknown [id number] 2.16.840.1.521029.3.579.2.593 1971 Unknown [id number] 2.16.840.1.298312.3.579.2.593 1971 Unknown [id number] 2.16.840.1.315076.3.579.2.593 1971 Unknown [id number] 2.16.840.1.555503.3.579.2.593 1971 Unknown [id number] 2.16.840.1.243900.3.579.2.593 1971 Unknown [id number] 2.16.840.1.400550.3.579.2.593 1971 Unknown [id number] 2.16.840.1.666518.3.579.2.593 1971 Unknown [id number] 2.16.840.1.212188.3.579.2.593 1971 Unknown [id number] 2.16.840.1.812137.3.579.2.593 1971 Unknown [id number] 2.16.840.1.943549.3.579.2.594 1971 Unknown [id number] 2.16.840.1.198991.3.579.2.594 1971 Unknown [id number] 2.16.840.1.291896.3.579.2.594 1971 Unknown [id number] 2.16.840.1.553316.3.579.2.594 1971 Unknown [id number] 2.16.840.1.344718.3.579.2.594 1971 Unknown [id number] 2.16.840.1.425204.3.579.2.594 1971 Unknown [id number] 2.16.840.1.719028.3.579.2.594 1971 Unknown [id number] 2.16.840.1.850996.3.579.2.594 1971 Unknown [id number] 2.16.840.1.073763.3.579.2.594 1971 Unknown [id number] 2.16.840.1.327767.3.579.2.125 9 1959 Medicaid [id number] 1958 Medicare [id number] Social History Date Type Detail Facility Start: 07-19-2018 End: 10-19-2018 Tobacco smoking status NHIS Former smoker [facility] Start: 07-19-1988 End: 05-14-2018 History of tobacco use Current smoker [facility] Work Phone: Start: 07-19-1988 End: 05-14-2018 History of tobacco use Cigarette Smoker [facility] Work Phone: Start: 10-19-2018 End: 09-26-2023 Cigarettes smoked current (pack per day) - Reported [facility] Work Phone: End: 07-19-1994 History of tobacco use Chews Tobacco [facility] Work Phone: Start: 1970 Sex Assigned At Not on file [facility] Work Phone: Start: 11-03-2018 Alcohol intake Current non-dr per diem 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 assistant of alcohol (finding) [place], [place] Start: 06-22-2018 Alcohol Comment Hx of alcoholism [place], [place] Start: 11-03-2018 End: 09-26-2023 Alcohol intake No [place] Start: 07-19-2018 Tobacco use and exposure Former user [facility] Start: 09-06-2020 End: 09-26-2023 Alcohol intake Ex-drinker (finding) [facility] Start: 07-19-2018 Alcohol Comment stopped 05/14/2018 [facility] Start: 05-05-2022 End: 01-16-2023 Exposure to SARS-CoV-2 (event) Not sure [facility] Start: 07-07-2018 Gender identity Identifies as male gender (finding) [facility] Start: 01-16-2022 Sexual orientation Heterosexual (scooby kc) [facility] Medical Equipment Procedure Code Equipment Code Equipment Original Text Equipment Identifier Dates [id number] Start: 05-23-2020 [id number] Start: 04-12-2020 [id number], [id number] FDA Start: 05-17-2022 Comment on above: Description: Implant time-out completed by intra-procedural staff including this RN, career technical counselor, and performing physician. The following was completed. [...] ; Prograf 0.2 MG Contact Info: Specialty ([facility]) [phone] [facility] [phone] [facility] [phone] [facility] [phone] Bedside Delivery ([facility]) [phone] [facility] RX OUTREACH ADVANCED: Call Information: Date and Time of Contact: 10/23/2023 2:00 PM Method of Contact: By Phone Contact Type: Prescriptions Contactor: [facility] Contactee: Patient Contact Outcome: Left message and Call back later Shipping/Pickup: Medication Name: Mycophenolate 360mg and Prograf 0.2mg Contact Info: Specialty ([place]) [phone] [facility] [phone] [facility] [phone] [facility] [phone] Bedside Delivery ([facility]) [phone] documented in this encounter [facility] 09-11-2023 Miscellaneous Notes Pt discharged home with [...] the oxygen during the night. 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 This [...] Patient seen ambulating in the velazquez with COIL WINDER STRAP. Patient was mildly short of breath on [...] & HR 114. Messaged Mainor Loomis, via [employer]OG[employer] secure chat, Temp 100.8. His tylenol order [...] short period of time. 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 Episode of [...] Critical Care Medicine Message Mainor Loomis, via [employer] secure chat, Good evening, just an FYI, [...] short period of time. 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 This morning, [...] [address] Loera here also (hogshead hooper) Dr. Diaz aware of pt's increased oxygen [...] Medicine-Pediatrics, PGY-2 Mr. Styles was admitted to [address] [place] [address]. On admission to [facility], from home a [...] station when available. documented in this encounter [facility] 09-11[facility] History of Present illness Narrative Provided follow-up emotional and spiritual support. Patient shared about rosemary of discharge and looking forward to seeing family Treer provided: - Supportive presence - Active listening - Validation of feelings/emotions Patient encouraged to request a hairspring vibrator as needed. Chaplains are available in-house 24 hours a day and 7 days a week. For urgent matters in [facility], please page [phone]. If the request is not urgent, please enter a consult. Consults are responded to within 24 hours. Senior Staff Treer Angie Singh Mdiv, [facility] Krik [phone] [email or web address] 22/06 On-call Kirk: [phone] 22/06 Pager ,[facility], and Brock Hernandez Pager [phone] 09/11/23 6851 Clinical Encounter Type Visited With Patient Visit Type Follow-up Pastoral Time Spent 15 min Referral Other (See Comment) (rounding) Spiritual Assessment Spiritual Observation Spirituality helpful Emotional Observation Coping well Hope Observation Specific hope focus Support Observation By Family Interventions Provided Active listening;Supportive presence Facilitated Verbalization of feelings Explored Expectations Aviation Neuropsychologist Education Aviation Neuropsychologist Service Available Yes Educated Patient Plan of Care Continue Visiting PRN Images from the original note were not included. [facility] Note: Non-Verbal Med Rec [facility] received the following discharge prescription(s): Total cost is $0. I have reviewed the Discharge Rx Reconciliation Report. The discharge prescription(s) will be delivered to the patient on 09/11/2023. Dimitrios Gurrola RPh,PharmD Specialty ([place]) [phone] [facility] [phone] [facility] Bedside Delivery [phone] [facility] [phone] [facility] Bedside Delivery [phone] [place] [phone] [facility] Bedside Delivery [phone] [place] [phone] [place] [phone] Internal Medicine Daily Progress Note Patient: George Styles, 1970, [id number] Physician: Evan Kelly MD, PGY-1, TM1 service Subjective/Interval History: Patient continues to require oxygen overnight for desaturations. With insurance limitations, only accepting agency to provide home oxygen backed out. After calling them to discuss, Lynn stated she would be willing to have patient drive to their facility to picking table worker supplies, however they close at 5pm. 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 - continue home aspirin 81mg daily, [...] 5.05 (H) 11/19/2018 Kevin Sage MD, SERA Network Communications Engineer of Clinical Medicine [facility] Images from the original note were not included. Final Discharge Planning and Transportation Final Discharge Planning Discharge Disposition: Home Services at Discharge: Outpatient clinical services (ie: lab draws, transfusions, injectables) (Home Oxygen by [facility]) Selected Continued Care - Admitted Since 08/28/2023 Durable Medical Equipment Coordination complete. 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 Addendum [phone] [facility] notified this CM they are out of patient's insurance area and will not be able to service this patient at time of discharge. Provider notified. Addendum [phone] Dr Kelly called [facility] spoke to Lynn and she said they are willing to accept patient if the patient would drive to the [place] office and picking table worker the supplies. Patient is willing to do [...] Lora Colón RN, MSN, CCM, CMCN Clinical Women'S Ministry Director- [facility] Transplant #[phone] Department of Pharmacy Transplant Note Patient: George [...] dose adjustment Name: Matt Kramer RPh,Frankie Phone: [phone] Date/Time: 09/10/2023 11:33 AM This CM sent referral via Aidin for O2 concentrator to [facility] Start date today Timer set for 1330 [employer] [facility] [place] Addendum 4470 One accepting company reserved in [address] [place] [address] Lora Colón RN, MSN, CCM, CMCN Clinical Women'S Ministry Director- [facility] Transplant #[phone] NUTRITION FOLLOW-UP Nutrition Plan of Care: 1. Continue current diet order. 2. No oral supplements warranted at this time. 3. Monitor for significant weight changes. Monitor GI, skin integrity. 4. Monitor and encourage po intakes with goal of average po being 75-100%. 5. donor technician to follow. ___ Met with patient [...] time. Will continue to monitor. RHIANNON [place]R Pager:[phone] Transplant Infectious Disease (Team 3) Progress Note [...] sign off. Please Epic message or page [phone] with questions. 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 - continue home aspirin 81mg daily, [...] to follow. Please Epic message or page [phone] with questions. 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 - continue home aspirin 81mg daily, holding atorvastatin 20mg daily Gout: continue home allopurinol 200mg daily BPH: continue home flomax 0.4mg daily DVT PPX: SQH Code Status: Full Code Disposition: Pending clinical course. Anticipate eventual discharge home. Discussed with team and attending, Kevin Sage MD, on rounds. 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 - continue home aspirin 81mg daily, [...] 5.05 (H) 11/19/2018 Kevin Sage MD, SERA Network Communications Engineer of Clinical Medicine [facility] Transplant Infectious Disease (Team [...] to follow. Please Epic message or page [phone] with questions. Ann Marie Haskins MD PGY-4, [...] he continues to improve. Please message via YOGITECH secure chat or page with any questions or concerns. Evan White DO Network Communications Engineer Division of Infectious Disease Transplant Infectious Disease [...] to follow. Please Epic message or page [phone] with questions. Evan White DO Transplant Infectious Diseases Images from the original note were not included. Pulmonary/Critical Care Medicine Daily Progress Note Reason for Consultation: bronch for infectious workup Requesting Physician: Dr. Sage CURRENT HOSPITALIZATION: Admit Date: 08/28/2023 [facility] Hospital LOS: 9 days Impression 1. [...] and interpreted reviewed the radiographic data in [facility]. 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 - continue home aspirin 81mg daily, [...] 5.05 (H) 11/19/2018 Kevin Sage MD, MADISONN Network Communications Engineer of Clinical Medicine [facility] Images from the original note were not included. Pulmonary/Critical Care Medicine Daily Progress Note Reason for Consultation: bronch for infectious workup Requesting Physician: Dr. Sage CURRENT HOSPITALIZATION: Admit Date: 08/28/2023 [facility] Hospital LOS: 8 days Impression 1. Acute [...] and interpreted reviewed the radiographic data in [facility]. Acute Occupational Therapy Evaluation Prior to [...] Assessment: Transfer Assessment: Sit to Stand Transfer [place] Level: Sit->Stand: independent Skilled Intervention/Details: Sit->Stand: x1 from EOB, x1 from toilet Stand to Sit Transfer [place] Level: Stand->Sit: independent Skilled Intervention/Details: Stand->Sit: x1 to toilet, x1 to EOB Functional Mobility: Functional Mobility [place] Level: Functional Mobility/Gait: independent Ambulation Distance (Feet): 20 Skilled Intervention/Details - Functional Mobility/Gait: pt performed functional mobility to/from RR w/ no overt LOB Outcome Score(s): CURRENT [facility] Daily Activity Inpatient Short Form Putting on/Taking Off Lower Body Clothin - A Little Assistance Bathin - A Little Assistance Toiletin - A Little Assistance Putting on/Taking Off Upper Body Clothin - No Assistance Groomin - No Assistance Eatin - No Assistance CURRENT [facility] Activity Raw Score: 21 CURRENT [facility] Activity Functional Limitation/Modifier: 32.79% Currently Impaired in [...] Acute Physical Therapy Evaluation Prior to Admission [facility] score(s): PRIOR LEVEL AM-PAC Mobility Raw [...] Intact Mobility Assessment: Supine to Sit Mobility [place] Level: Supine->Sit: modified independence Bed Features/Set-up: Supine->Sit: Head of bed elevated Sit to Supine Mobility [place] Level: Sit->Supine: not tested Balance: Sitting Balance [...] environment. Transfer Assessment: Sit to Stand Transfer [place] Level: Sit->Stand: independent Skilled Intervention/Details: Sit->Stand: From EOB x 2 without difficulty. Stand to Sit Transfer [place] Level: Stand->Sit: independent Assistive Device: Stand->Sit: armed chair Skilled Rationale: Verbal cues, Positioning Gait/Functional Mobility: Gait Assessment [place] Level: Gait: stand-by assist Assistive Device: Gait: rollator Ambulation Distance (Feet): 400 Gait Deviations Identified: decreased grace, decreased gait speed Gait Skilled Rationale: verbal, upright posture, increase step length, increase foot clearance Skilled Intervention/Details - Gait: Reasonable foot clearnce without loss of balance but endorsing dyspnea as 6-7/10. 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 - continue home aspirin 81mg daily, [...] 5.05 (H) 11/19/2018 Kevin Sage MD, SERA Network Communications Engineer of Clinical Medicine [facility] Transplant Infectious Disease (Team [...] to follow. Please Epic message or page [phone] with questions. Evan White DO Transplant Infectious Diseases Images from the original note were not included. 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 - continue home aspirin 81mg daily, [...] P 450 system Kevin Sage MD, SERA Network Communications Engineer of Clinical Medicine [facility] ERT Note: ERT [...] Pediatrics PGY-3 [facility] Brief plan of care update: Called to [...] Pediatrics PGY-3 [facility] Transplant Infectious Disease (Team 3) Progress Note [...] to follow. Please Epic message or page [phone] with questions. 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 - continue home aspirin 81mg daily, [...] 5.05 (H) 11/19/2018 Kevin Sage MD, SERA Network Communications Engineer of Clinical Medicine [facility] Comprehensive Transplant [...] Lora Colón RN, MSN, CCM, CMCN Clinical Women'S Ministry Director- [facility] Transplant #[phone] Made introductory visit with patient. Provided emotional and spiritual support. Patient shared about: - Source of Rosemary: Camping/Fishing/Family - Spirituality/Anabaptism Affiliation: raised Scientology - Family Support/history - Experience with illness/hospital course - Hopes for healing/future Treer provided: - Supportive presence - Active listening - Validation of feelings/emotions - Pledged prayer Patient encouraged to request a hairspring vibrator as needed. Chaplains are available in-house 24 hours a day and 7 days a week. For urgent matters in [facility], please page [phone]. If the request is not urgent, please enter a consult. Consults are responded to within 24 hours. Senior Staff Treer Angie Singh Mdiv, [facility] Kirk [phone] [email or web address] 22/06 On-call Kirk: [phone] 22/06 Pager ,BS, and Brock Hernandez Pager [phone] 09/02/23 1117 Clinical Encounter Type Visited With Patient Visit Type Introduction Pastoral Time Spent 15 min Referral Other (See Comment) (rounding) Spiritual Assessment Spiritual Observation Spirituality helpful Emotional Observation Coping well Hope Observation Specific hope focus Support Observation By Family Interventions Provided Active listening;Supportive presence Facilitated Verbalization of feelings Explored Expectations Aviation Neuropsychologist Education Aviation Neuropsychologist Service Available Yes Educated Patient Outcomes Patient Outcomes Reduced distress Plan of Care Continue Visiting PRN NUTRITION RISK SCREENING NOTE Nutrition Plan of Care: 1. Continue current diet order. 2. No oral supplements warranted at this time. 3. Monitor for significant weight changes. Monitor GI and skin integrity. 4. Monitor and encourage po intakes with goal of average po being 100%. 5. donor technician to follow. George Styles is a 53 y.o. 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 His prairie band kidney disease was noted to be presumed hepatorenal syndrome. His post-transplant course was noteworthy for nephrostomy tube (05/17/2022-09/10/2022) due to concern for ureteral stone. He presents as a direct admission for fever, cough, for infectious workup. Pt unavailable and information obtained via chart review Beet Flumer Screening Pt's appetite is good. Pt with [...] with meds Food Allergies reviewed:Shellfish Cultural or Anabaptism Restrictions/Preferences: None GI: Last Bowel Movement: 09/01/23 [...] time. Will continue to monitor. 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 His prairie band kidney disease was noted to be presumed [...] renal function CAD: non-obstructive CAD on [facility]. - continue home aspirin 81mg daily, [...] as outlined above. Kevin Sage MD Pager [phone] Summary: Pharmacy Med Rec Department of Pharmacy [...] Provider: Zuly Bruno NP Pharmacy: [facility] Other Comments: Patient reported his Last Home Dose of mycophenolate & tacrolimus was on 08/28/23 at 0900. Patient reported he was taking Bactrim and benzonatate for fevers and a cough he was having. Please feel free to contact me with any further questions. Name: Heidy Chatman Phone #: [phone] Date/Time: 09/01/2023 2:01 PM Time Spent: 15 minutes Associated attestation - Matt Kramer RPh,PharmD - 09/01/2023 2:28 PM EDT Department of Pharmacy Admission Medication Reconciliation Note Patient: George Styles Room/Bed: 1062/A I have reviewed the home medication list with the Human Resources District Manager. All changes to the home medication list have been updated in IHIS. Updated [facility] Med List: Prior to Admission Medications Prescriptions [...] questions. Name: Matt Kramer RPh,PharmD Phone #: [phone] Date/Time: 09/01/2023 2:28 PM Transplant Infectious Disease [...] crypto antigen, EBV PCR -follow pending histo, [id number] labs These recommendations were discussed with the primary team. Transplant ID (Team 3) will continue to follow. Please Epic message or page [phone] with questions. Evan White DO Transplant Infectious Diseases Internal Medicine Daily Progress Note Patient: George Styles, 1970, [id number] Physician: Evan Kelly MD, PGY-1, TM1 service [...] 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 His prairie band kidney disease was noted to be presumed [...] renal function CAD: non-obstructive CAD on [facility]. - continue home aspirin 81mg daily, [...] 5.05 (H) 11/19/2018 Kevin Sage MD, SERA Network Communications Engineer of Clinical Medicine [facility] Discharge Planning Patient Assessment [...] Yes Name and Contact information: Gian Styles ([phone]) Reviewed and Updated in Demographics? : Yes Outpatient Providers Does patient have a primary care physician? : Yes When was the patient's last PCP visit?: > 30 days Does the patient follow any specialists?: No Reviewed and updated Care Team?: Yes Patient Care Team: Zuly Bruno CNP as PCP - General Environment/Caregivers Is the patient from a facility or long-term?: No Patient lives with: Alone Living Environment: [...] patient on Anticoagulation? 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 : No Employed?: Disabled Coping/Stress Concerns about patient s coping and stress?: No Concerns about patient s caregiver s coping and stress?: No Values and Beliefs Cultural or oriental orthodox practices that may impact discharge planning and/or [...] Plan 1. Identified self and role as Women'S Ministry Director. 2. Confirmed and updated demographics and treatment team. 3. Women'S Ministry Director will continue to follow with medical team/pt for any other additional discharge needs. Kasandra DON RN [facility] [phone] *Please note I am float and work Thursday and Thursday every other week. Please call [phone] for assist in my absence. Internal Medicine Daily Progress Note Patient: George Styles, 1970, [id number] Physician: Evan Kelly MD, PGY-1, TM1 service [...] 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 His prairie band kidney disease was noted to be presumed [...] renal function CAD: non-obstructive CAD on [facility]. - continue home aspirin 81mg daily, [...] 5.05 (H) 11/19/2018 Kevin Sage MD, SERA Network Communications Engineer of Clinical Medicine [facility] Internal Medicine Daily Progress Note Patient: George Styles, 1970, [id number] Physician: Laurel Serrano MD, PhD, PGY-3, TM1 [...] 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 His prairie band kidney disease was noted to be presumed [...] 50mg BID CAD: non-obstructive CAD on [facility]. - continue home aspirin 81mg daily, atorvastatin 20mg daily Gout: continue home allopurinol 200mg daily BPH: continue home flomax 0.4mg daily DVT PPX: SQH Code Status: Full Code Disposition: Pending clinical course. Anticipate eventual discharge home. Discussed with team and attending, Kevin Sage MD, on rounds. Signed, Laurel Serrano MD, PhD documented in this encounter [facility] 09-10-2023 Hospital Discharge instructions Laurel Serrano [...] a sleep doctor. You will need to picking table worker the oxygen concentrator when you leave the [...] on healthy foods. documented in this encounter [facility] 09-01-2023 Consult note Associated Order (s): IP CONSULT TO PULMONOLOGY Pulmonary Medicine Inpatient Consultation Reason for Consultation: bronch for infectious workup Requesting Physician: Dr. Sage Pulmonary Attending Physician: Dr. Diaz CURRENT HOSPITALIZATION: Admit Date: 08/28/2023 [facility] Hospital LOS: 4 days Impression/Recommendations: George Styles [...] Recommendations: - Plan to bronch tomorrow morning. NPO@PA, order placed - would repeat HIV, last [...] short period of time. 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 Other histories as documented in the [...] had any ill contacts. [place] [facility] [place] [facility] REVIEW OF SYSTEMS A complete [...] GUIDANCE 05/17/2022 Surgeon: Enzo Heart DO; [facility] INTER[facility]IONAL RAD[facility] (VIR) LIVER TRANSPLANT, ORTHOTOPIC N/A 04/12/2020 Laterality: N/A; Surgeon: LU Palma; Location: [facility] SAME DAY SURGERY MAIN OR KIDNEY TRANSPLANT W/O KENAITZE NEPHRECTOMY N/A 04/12/2020 Laterality: N/A; Surgeon: LU Palma; Location: [facility] SAME DAY SURGERY MAIN OR OTHER SURGICAL [...] Alamo MD I can be reached via YOGITECH secure message (preferred) or Pager #[phone] documented in this encounter [facility] 08-28-2023 History and physical note Images from the original note were not included. Internal Medicine Admission History & Physical Patient: George Styles, 1970, [id number] Physician: Aric Turner MD, PGY1, Pager #[phone], VF service Date of face to face patient [...] So he went to see the transplant professor of german. He was found elevated Cr and asked [...] Appetite is ok now. Urine is about 4649-8507 ml every day. Stool every day, no [...] GUIDANCE 05/17/2022 Surgeon: Enzo Heart DO; Location: [facility] INTERVENTIONAL RADIOLOGY (VIR) LIVER TRANSPLANT, ORTHOTOPIC N/A 04/12/2020 Laterality: N/A; Surgeon: LU Palma; Location[facility] SAME DAY SURGERY MAIN OR KIDNEY TRANSPLANT W/O KENAITZE NEPHRECTOMY N/A 04/12/2020 Laterality: N/A; Surgeon: LU Palma; Location: [facility] SAME DAY SURGERY MAIN OR OTHER SURGICAL [...] 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 His prairie band kidney disease was noted to be presumed [...] Urinary histoplasmosis - PJP, candid PCR - Turf Keeper transplant ID Acute Kidney Injury with Kidney [...] 50mg BID CAD: non-obstructive CAD on [facility] 2018. - continue aspirin 81mg daily, atorvastatin [...] Pierson, Luisa Steven, Renee Rivera, Daisha Max Plastic Block Boiler Reliner: José Miguel Garnica All Txt: 04/13/2020 (Kidney), [...] results found for: CYCLOSPORIN , CYCLOSPORIN2 , [id number] , CYCLORAND No results found for: SIROLIMUS [...] Rest as above. Kevin Sage MD Pager [phone] documented in this encounter [facility] 08-28-2023 History of Present illness Narrative Images from the original note were not included. 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 Plastic Block Boiler Reliner: Anayeli Burt Date of Liver Transplant: 04/13/2020 (Kidney), 04/13/2020 (Liver) 3 years 4 months post Liver/Kidney Transplant Primary Disease: Hypertensive Nephrosclerosis Transplant Agency Manager: Erma Roe/ Daisha Max Primary Care physician: [...] and faMOTIdine === None Specified Preferred Lab: [facility] Change in lab frequency / new order [...] every 12 hours. ADDITIONAL INFORMATION: None Specified, [id number] [place] [address] - [address] [facility] [address] [facility] [address] [facility] [address] , [address] [facility] [address] [facility]/pharmacy [facility][id number] [place] [address] [address] [facility] [address] [facility] [address] [facility] [address], [facility] [address] [address] ROS and SCREEN: Chest Pain: negative Cough: [...] PHYSICIAN: I saw George Styles at the [facility] on 08/28/2023. Patient is a 53 y.o. 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 His prairie band kidney disease was noted to be presumed [...] GUIDANCE 05/17/2022 Surgeon: Enzo Heart DO; Location: [facility] INTERVENTIONAL RADIOLOGY (VIR) LIVER TRANSPLANT, ORTHOTOPIC N/A 04/12/2020 Laterality: N/A; Surgeon: LU Palma; Location: [facility] SAME DAY SURGERY MAIN OR KIDNEY TRANSPLANT W/O KENAITZE NEPHRECTOMY N/A 04/12/2020 Laterality: N/A; Surgeon: LU Palma; Location: [facility] SAME DAY SURGERY MAIN OR OTHER SURGICAL [...] you have any questions. Steve Latham MD med peds Division of Nephrology [facility] documented in this encounter [facility] 08-28-2023 Instructions Mainor Busby RN - 08/28/2023 2:15 PM EDT - Admission for fevers, cough, and night sweats documented in this encounter [facility] 08-19-2023 History of Present illness Narrative [facility] RX OUTREACH ADVANCED: Call Information: Date and Time of Contact: 08/19/2023 2:52 PM Method of Contact: By Phone Contact Type: Prescriptions Contactor: [facility] Contactee: Patient Shipping/Pickup: Medicare B Refill?: No Medication Name: Tacro 0.5mg Delivery Method: Air Delivery Location: Home Signature Required: No Mailing/Pickup Date: 08/25/2023 Shipping Address: [address] [place] [address] Contact Info: Specialty ([facility]) [phone] [facility] [phone] [facility] [phone] [facility] [phone] Bedside Delivery ([facility]) [phone] documented in this encounter [facility] 06-12-2023 History of Present illness Narrative Images from the original note were not included. George Styles is a 53 y.o. 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 No longer follows with a local professor of german. History of Present Illness: Since George was [...] records and lab results. Rebeca MITCHELL, RN, BANK CREDIT CARD COLLECTION CLERK-BC, CCTN Certified Nurse Practitioner [facility] [address] [facility] [address] documented in this encounter [facility] 06-12-2023 Instructions JEANNA Hess - 06/12/2023 3:00 PM EDT No change in immunosuppression. documented in this encounter [facility] 06-10-2023 History of Present illness Narrative [facility] RX OUTREACH ADVANCED: Call Information: Method of Contact: By Phone Contact Type: Prescriptions Contactor: [facility] Contactee: Patient Contact Outcome: Left message Shipping/Pickup: Medication Name: Mycophenolate sod 180 mg Contact Info: Specialty ([facility]) [phone] [facility] [phone] [facility] [phone] David [phone] Bedside Delivery ([facility]) [phone] [facility] RX OUTREACH ADVANCED: Call Information: Date and Time of Contact: 06/12/2023 9:43 AM Method of Contact: By Phone Contact Type: Prescriptions Contactor: [facility] Contactee: Patient Contact Outcome: Left message and Follow-up Shipping/Pickup: Medicare B Refill?: No Medication Name: Myco 180 Contact Info: Specialty ([facility]) [phone] [facility] [phone] [facility] [phone] David [phone] Bedside Delivery ([facility]) [phone] [facility] RX OUTREACH ADVANCED: Call Information: Date and Time of Contact: 06/12/2023 10:08 AM Method of Contact: By Phone Contact Type: Prescriptions Contactor: [facility] Contactee: Patient Shipping/Pickup: Medicare B Refill?: No Medication Name: Mycophenolate 180mg DR Delivery Method: Air Delivery Location: Home Signature Required: No Mailing/Pickup Date: 06/17/2023 Shipping Address: [address] [place] [address] Contact Info: Specialty ([facility]) [phone] Jakob [phone] [facility] [phone] David [phone] Bedside Delivery ([facility]) [phone] documented in this encounter [facility] 04-13-2023 Note ME Cardiology - [facility] Subjective George Styles is a 53 [...] Legacy Encounter on (more content not included)... [facility] 03-12-2023 History of Present illness Narrative [facility] RX OUTREACH ADVANCED: Call Information: Date and Time of Contact: 03/12/2023 10:34 AM Method of Contact: By Phone Contact Type: Prescriptions Contactor: [facility] Contactee: Patient Shipping/Pickup: Medicare B Refill?: No Medication Name: Mycophenoloate sod 360 mg prednisone 5mg Delivery Method: Air Delivery Location: Home Signature Required: No Mailing/Pickup Date: 03/16/2023 Shipping Address: [address] [place] [address] Contact Info: Specialty ([facility]) [phone] Jakob [phone] [facility] [phone] David [phone] Bedside Delivery ([facility]) [phone] [facility] RX OUTREACH ADVANCED: Call Information: [...] Required: No Mailing/Pickup Date: 03/19/2023 Shipping Address: [address] [place] [address] [address] Contact Info: Specialty ([place]) [phone] [facility] [phone] [facility] [phone] David [phone] Bedside Delivery ([facility]) [phone] documented in this encounter [facility] 03-10-2023 History of Present illness Narrative [facility] RX OUTREACH ADVANCED: Call Information: Date and Time of Contact: 03/10/2023 12:00 PM Method of Contact: By Phone Contact Type: Prescriptions Contactor: [facility] Contactee: Patient Contact Outcome: Left message and Call back later Shipping/Pickup: Medication Name: Mycophenolate ; Tacrolimus Contact Info: Specialty ([facility]) [phone] [facility] [phone] [facility] [phone] David [phone] Bedside Delivery ([facility]) [phone] documented in this encounter [facility] 03-10-2023 History of Present illness Narrative [facility] RX OUTREACH ADVANCED: Call Information: Date and Time of Contact: 03/10/2023 12:00 PM Method of Contact: By Phone Contact Type: Prescriptions Contactor: [facility] Contactee: Patient Contact Outcome: Left message and Call back later Shipping/Pickup: Medication Name: Mycophenolate ; Tacrolimus Contact Info: Specialty ([facility]) [phone] [facility] [phone] [facility] [phone] David [phone] Bedside Delivery ([facility]) [phone] [facility] RX OUTREACH ADVANCED: Call Information: Date and Time of Contact: 03/12/2023 10:32 AM Method of Contact: By Phone Contact Type: Prescriptions Contactor: [facility] Contactee: Patient Contact Outcome: Left message Shipping/Pickup: Medication Name: Mycophenolate sodium (MYFORTIC) 180 MG Tab tacrolimus 0.5 mg Contact Info: Specialty ([facility]) [phone] Jakob [phone] [facility] [phone] David [phone] Bedside Delivery ([facility]) [phone] documented in this encounter [facility] 01-16-2023 History of Present illness Narrative -Referring Provider for today's consult: Daisha Max DO -Primary Care Provider: Zuly Bruno History of Present Illness George Styles is a 52 y.o. male who [facility] Transplant Hepatology Clinic today for follow-up [...] GUIDANCE 05/17/2022 Surgeon: Enzo Heart DO; Location: [facility] INTERVENTIONAL RADIOLOGY (VIR) LIVER TRANSPLANT, ORTHOTOPIC N/A 04/12/2020 Laterality: N/A; Surgeon: LU Palma; Location: [facility] SAME DAY SURGERY MAIN OR KIDNEY TRANSPLANT W/O KENAITZE NEPHRECTOMY N/A 04/12/2020 Laterality: N/A; Surgeon: LU Palma; Location: [facility] SAME DAY SURGERY MAIN OR OTHER SURGICAL [...] 0.3 12/29/2022 Explant Pathology Pathologic Diagnosis A. [place] liver, orthotopic liver transplant resection (1458 gram): [...] A/P with IV contrast (06/27/2022): 1. Both prairie band kidneys are atrophic with improvement in right-sided [...] frequent nighttime urination, etc). Daisha Max DO Network Communications Engineer Gastroenterology, Hepatology and Nutrition [facility] Pager: [phone] Images from the original note were not included. 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 ADDITIONAL INFORMATION: None Specified [id number] [place] [address] - [address] [facility] [address] [facility] [address] [facility] [address] [facility], [address] [facility] [address] [id number] [place] [address] [address] [facility] [address] [facility] [address] [facility] [address], [address] [facility] [address] ROS and SCREEN: Chest Pain: negative Cough: [...] ADDRESS WITH PHYSICIAN: documented in this encounter [facility] 01-16-2023 Instructions José Miguel Garnica RN - 01/16/2023 9:40 AM EST - Labs Every 2 months - Discuss night time urination with your PCP - Schedule Colonoscopy through PCP - Follow up in 1 year documented in this encounter [facility] 09-10-2022 History of Present illness Narrative UROLOGY [...] and no hydronephrosis. Some reflux up the prairie band right ureter but good drainage of both transplant and prairie band ureter to the bladder. Nephrostomy tube was [...] transplant, orthotopic (N/A, 04/12/2020); kidney transplant w/o prairie band nephrectomy (N/A, 04/12/2020); and placement nephrostomy catheter [...] Negative for , diarrhea, constipation Genitourinary: See [place] Neurological: Negative for headaches. Lymph/Heme: Negative for [...] x 4, Normal strength. No edema. Skin: Dod[place], warm, and dry. There are no rashes [...] and no hydronephrosis. Some reflux up the prairie band right ureter but good drainage of both transplant and prairie band ureter to the bladder. Nephrostomy tube was [...] MD 09/10/22 documented in this encounter [facility] 07-07-2022 History of Present illness Narrative [...] assisted off the table and escorted to studio receptionist where they made a follow up. [...] to have transplant ureter with anastomosis to prairie band right ureter. Nephrostogram without filling defects and no hydronephrosis. Some reflux up the prairie band right ureter but good drainage of both transplant and prairie band ureter to the bladder. Nephrostomy tube was removed without issue. Patient does have some sensation of incomplete bladder emptying and occasional sensation in his right flank. PVR today was 33cc. Will re-evaluate urinary symptoms at next appointment. --continue Flomax --RTC in one month flow flow/PVR/IPSS Patient to call with any additional questions or concerns. Ryan Yepez MD 07/07/22 documented in this encounter [facility] 06-27-2022 History of Present illness Narrative [...] transplant, orthotopic (N/A, 04/12/2020); kidney transplant w/o prairie band nephrectomy (N/A, 04/12/2020); and placement nephrostomy catheter [...] Negative for , diarrhea, constipation Genitourinary: See [place] Neurological: Negative for headaches. Lymph/Heme: Negative for [...] x 4, Normal strength. No edema. Skin: [place], warm, and dry. There are no rashes [...] yo male with a DDRT to the [facility] in 2019. Nephrostomy tube placed 05/17 due [...] bag if needed. documented in this encounter [facility] 06-27-2022 History and physical note Patient was evaluated in clinic as a nurse visit. Please refer to Rena Brewster's note. [facility] Work Phone: 06-27-2022 History and physical note Patient was evaluated in clinic as a nurse visit. Please refer to Rena Brewster's note. documented in this encounter [facility] 06-27-2022 History of Present illness Narrative TEACHING REGARDING TX NEPH COMPLETED-NEPH TUBE SITE DRY AND INTACT-CLEAR YELLOW URINE IN THE BAG-INSTRUCTED ABOUT FLUSHING, BAG CHANGING ETC. NUMEROUS QUESTIONS ASKED AND ANSWERED-VERBALIZED UNDERSTANDING documented in this encounter [facility] 06-18-2022 Note EXAMINATION: CT ABD/ PELVIS WO [...] mass or enlargement. KIDNEYS: Marked atrophy of prairie band kidneys. Transplant right pelvic kidney with percutaneous [...] authenticated by: MÓNICA JIMENEZ Date: 2022-06-18 13:53 [facility] 06-12-2022 Instructions Anayeli Christianson RN - 06/12/2022 3:21 PM EDT Do not take apart/disrupt nephrostomy tube system. Call Interventional Radiology and/or on-call transplant nurse [phone] for instruction if need to flush (clot or decreased flow). Take cipro 500mg, one tablet, twice per day for 14 days documented in this encounter [facility] 06-12-2022 History of Present illness Narrative Images from the original note were not included. 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 Plastic Block Boiler Reliner: Anayeli Burt Date of Liver Transplant: 04/13/2020 (Kidney), 04/13/2020 (Liver) 2 year, 1 months post Liver/Kidney Transplant Primary Disease: Hypertensive Nephrosclerosis Transplant Agency Manager: Steve Latham Primary Care physician: Zuly Bruno [...] Non-obstructing kidney stone in renal graft at [facility]. Percutaneous Neph Tube placed Images from the original note were not included. Nursing Assessment In Clinic (see Clinic Prep Sheet for additional information) Patient is accompanied to clinic today by: self Did patient require a wheelchair or medical transport for appointment: no Did front desk agent confirm current address and insurance information is [...] AND PHARMACY: None Specified [facility] [place] [address] - [address] [facility] [address] [facility] [address] [facility] [address] [facility] [address] [id number] [place] [address] [address] [facility] [address] [facility] [address] [facility] [address], [address] [facility] [address] ROS and SCREEN: Chest Pain: negative Cough: negative SOB: negative Abd Pain: negative Nausea: positive Vomiting: negative Diarrhea: negative Constipation: negative Dysuria: positive Edema: negative Tremors: negative Headaches: negative Wound issues: negative Pt has neph tube w clear yellow urine. States he had a small clot that he dislodged QUESTIONS OR CONCERNS TO ADDRESS WITH PHYSICIAN: I saw George Styles at the [facility] on 06/12/2022. Patient is a 52 y.o. 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 Steve Latham MD med peds Division of Nephrology [facility] documented in this encounter [facility] 06-04-2022 Instructions TATI GROVE - 06/04/2022 11:04 AM EDT Thank you for joining us for your neph tube follow up. We recommend routine exchange every 8-10 weeks. Please reach out at [phone] when it is time to set your next routine exchange. Thank you IR clinic documented in this encounter [facility] 06-04-2022 History of Present illness Narrative Met [...] exchange. Verbalized understanding. documented in this encounter [facility] 05-20-2022 Note Formatting of this n ote [...] time of his discharge. Leon Cook RN [facility] 05-20-2022 Miscellaneous Notes Patient discharged. AVS printed [...] provide teaching before his discharge Leon RN #[id number] Leon Cook RN Afternoon assessment completed at [...] Interdisciplinary Rounds/Family Conf Outcome: Ongoing Discussed with [facility] re: possible urine culture performed at their [...] with questions. Evan Byrd MD Urology, PGY-2 #[id number] I certify that this patient requires inpatient [...] Kallie Lorenzana RN documented in this encounter [facility] 05-20-2022 Note Formatting of this n ote [...] discharge/transition of care. Outcome: Adequate for Discharge [facility] 05-20-2022 Note Formatting of this n ote might be different from the original. Paged Vera Dillard MD R10 [address]m [address]6 Jensen George Please let's have a clear order on how the nephrostomy site dressing need to be changed when the patient goes home so we provide teaching before his discharge Leon RN #[id number] Leon Cook RN [facility] 05-20-2022 History of Present illness Narrative Images from the original note were not included. [facility] Note: [facility] received the following discharge prescription(s): Medication reconciliation was completed with comparison to discharge reconciliation report. The prescription(s) will be delivered to the patient's bedside on 05/20/22. Total cost is $0. Yanira Her RPh,PharmD Specialty ([facility]) [phone] Jak[place] [phone] [facility] [phone] David [phone] [place] [phone] Bedside Delivery ([facility]) [phone] Attending I saw George Styles at the [facility] on 05/19/2022. I saw and independently [...] Evan Bennett MD 650 mg at 05/18/22 6588 allopurinol (ZYLOPRIM) tablet 100 mg 100 mg [...] Daily Progress Note Patient: George Styles, 1970, [id number] Physician: Liam Julian MD, PGY-3, Pager #[phone], [email or web address] Subjective/Interval History: No acute events overnight. Passed [...] Saldana MD Division of Hospital Medicine Pager [phone] Attending I saw George Feliz Jensen at the [facility] on 05/18/2022. 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 Daya Saldana MD (Peggy) Division of Hospital Medicine Pager [phone] Internal Medicine Daily Progress Note Patient: George Styles, 1970, [id number] Physician: Nishant Gamez MD, PGY2, Pager #[phone], [email or web address] Subjective/Interval History: Worsening creatinine this morning with [...] MD (Peggy) Division of Hospital Medicine Pager [phone] Attending I saw George Styles at the [facility] on 05/17/2022. I saw and independently [...] of chart and discussion with treatment team, Women'S Ministry Director has not identified needs at this time. [...] follow. Introduced self and role of the hairspring vibrator to patient. Provided emotional and spiritual support and the patient responded by sharing their experience and discussed the following: - Spirituality/Anabaptism Affiliation: As a kid attended [employer] nondenominational but not a strong identity now - Family support - pt's brothers live close by [place] provided: - Supportive presence - Active listening - Validation of feelings/emotions Patient encouraged to request a hairspring vibrator as needed. Chaplains are available in-house 24 hours a day and 7 days a week. For urgent matters in [facility], please page [phone]. If the request is not urgent, please enter a consult. Consults are responded to within 24 hours. Angie Singh Mdiv, [facility] Burn Unit and Transplant [place] [address] [address] [facility] Tre[place] Kirk [phone] [email or web address] 22/06 [facility] Pager [phone] 22/06 Pager ,[facility], and Brock 1500 22/06 David Pager [phone] 05/16/22 1129 Clinical Encounter Type Visited With Patient Visit Type Introduction Pastoral Time Spent 15 min Referral Other (See Comment) (Rounding) Spiritual Assessment Spiritual Observation Spirituality helpful;Identifies as (see comment) ([facility]) Emotional Observation Coping well Hope Observation Hopeful and accepting Support Observation By Family Interventions Provided Active listening;Supportive presence Facilitated Verbalization of feelings;Sharing of life story;Identifying support system Explored Expectations Aviation Neuropsychologist Education Aviation Neuropsychologist Service Available Yes Educated Patient Outcomes Patient Outcomes Articulated purpose/meaning Plan of Care Continue Visiting PRN Internal Medicine Daily Progress Note Patient: George Styles, 1970, [id number] Physician: Nishant Gamez MD, PGY2, Pager #[phone], [id number] Subjective/Interval History: Overall feeling okay this morning. 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 [...] Supervision Transfer Assessment: Sit to Stand Transfer [place] Level: Sit->Stand: independent Skilled Intervention/Details: Sit->Stand: x1 from EOB Stand to Sit Transfer [place] Level: Stand->Sit: supervision Assistive Device: Stand->Sit: armed chair Skilled Rationale: Controlled descent for sitting, Verbal cues Gait/Functional Mobility: Gait Assessment [place] Level: Gait: supervision Assistive Device: Gait: gait belt Gait Distance (feet): 200 Gait Deviations Identified: decreased grace, decreased step length, decreased stride length Gait Skilled Rationale: verbal, upright posture Skilled Intervention/Details - Gait: Pt with steady gait without LOB or complaints of SOB. Stairs: Stairs Assessment [place] Level: Stair Negotiation: stand-by assist Assistive Device: Stair Negotiation: gait belt, left rail (ascending) Number of stairs: 9 Stairs Skilled Rationale: reciprocal pattern Outcome Score(s): CURRENT [facility] Basic Mobility Inpatient Short Form Turning over in bed: 4 - No Assistance Sitting/standing from chair: 4 - No Assistance Moving from lying on back to sittin - No Assistance Moving to and from bed to chair: 4 - No Assistance Walk in hospital room: 3 - A Little Assistance Climbing 3-5 steps with a railin - A Little Assistance CURRENT [facility] Mobility Raw Score: 22 CURRENT [facility] Mobility Functional Limitation/Modifier: 20.91% Currently Impaired in [...] reported no concerns with discharging home with energy support. 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 IADL History IADLs: independent Primary Language: Kazakh Home Management Skills: independent Meal Prep Responsibility: [...] Assessment: Transfer Assessment: Sit to Stand Transfer [place] Level: Sit->Stand: independent Skilled Rationale: Cues for increased safety Skilled Intervention/Details: Sit->Stand: x1 EOB Stand to Sit Transfer [place] Level: Stand->Sit: supervision Assistive Device: Stand->Sit: gait belt, armed chair Skilled Rationale: Verbal cues, Controlled descent for sitting, Cues for increased safety Skilled Intervention/Details: Stand->Sit: cues for hand placement and controlled descent Functional Mobility: Functional Mobility [place] Level: Functional Mobility/Gait: stand-by assist Assistive Device: Functional Mobility/Gait: gait belt Functional Mobility Distance: Distance needed for limited community mobility Functional Mobility Deficits: Activity tolerance, Balance, Decreased step length, Generalized weakness Functional Mobility Skilled Rationale: Verbal cues, Facilitate postural control Skilled Intervention/Details - Functional Mobility/Gait: cues for upright posture Outcome Score(s): CURRENT [facility] Daily Activity Inpatient Short Form Putting on/Taking Off Lower Body Clothin - A Little Assistance Bathin - A Little Assistance Toiletin - A Little Assistance Putting on/Taking Off Upper Body Clothin - No Assistance Groomin - No Assistance Eatin - No Assistance CURRENT [facility] Activity Raw Score: 21 CURRENT [facility] Activity Functional Limitation/Modifier: 32.79% Currently Impaired in [...] 04/12/2020 Laterality: N/A; Surgeon: LU Palma; Location: [facility] SAME DAY SURGERY MAIN OR KIDNEY TRANSPLANT W/O KENAITZE NEPHRECTOMY N/A 04/12/2020 Laterality: N/A; Surgeon: LU [...] by: Mel Norman OT, OTR/L License #: [id number] pager # [phone] 05/20/2022 Upon discontinuation of Acute Care Occupational Therapy Services or patient discharge from the hospital this note represents the current Occupational Therapy Discharge Summary. documented in this encounter [facility] 05-20-2022 Hospital course Narrative Discharge Summary [...] during his recent hospital stay at [facility]. As you may know, George Styles, is [...] Saldana MD Division of Hospital Medicine p: [phone] f: [phone] CONSULTS DURING ADMISSION: IP CONSULT TO SURGERY - UROLOGY IP CONSULT TO NEPHROLOGY - TRANSPLANT (MEDICINE) IP CONSULT TO INTERVENTIONAL RADIOLOGY IP CONSULT TO PHYSICAL THERAPY IP CONSULT TO OCCUPATIONAL THERAPY IP CONSULT TO PHARMACY BEDSIDE DISCHARGE MED DELIVERY IMAGING / PROCEDURES / RESULTS: Should you require further information or copies of results or reports please contact Medical Information Management @ [phone] LABS AT TIME OF DISCHARGE: Lab Results [...] Bruno [address] / [place] [address] MEDICATIONS: Discharge Orders CT ABDOMEN/PELVIS WITHOUT CONTRAST [...] CAPS Generic drug: docusate Follow-up: Zuly Bruno, HAND BOOKED FOLDER AND STITCHER [address] [facility] [address] Schedule an appointment as soon as possible for a visit Follow-up appointment with your, primary care physician within 7-10 days, after discharge. [address] [facility] [id number] Follow up The department of urology will call you with a follow up appointment. LU Ovalle [address] 11th Floor [facility] [address] Follow up Please make a follow up appointment with Dr. Latham's office. Upcoming Appointments (up to five)-Some appointments for Medical Center outpatient clinics or diagnostic testing locations are not displayed below Provider Department Dept Phone 06/04/2022 10:40 AM IR CLINIC [facility] Interventional Radiology Clinic [phone] 06/27/2022 1:30 PM [facility] Department of Radiology Arrive at: Arrive to First Floor Registration Desk [phone] 06/27/2022 2:40 PM Ryan Yepez [facility] Arrive at: Arrive to 2nd Floor, Registration [id number] 10/31/2022 1:00 PM Steve Latham [facility] Transplant [facility] [phone] 01/16/2023 9:40 AM TRANSPLANT HEPATOLOGY , [facility] Transplant [facility] [phone] Associated attestation - Daya Saldana MD - [...] MD (Peggy) Division of Hospital Medicine Pager [phone] documented in this encounter [facility] 05-20-2022 Hospital Discharge instructions Giulia Cavazos [...] be changed by Interventional Radiology. Please call [phone] to schedule this appointment and with any questions or concerns you may have regarding the nephrostomy tube. If you have questions or concerns, please call Interventional Radiology at SOMEONE FROM INTERVENTIONAL RADIOLOGY WILL CALL YOU FOR A FOLLOW UP IN THE IR CLINIC Giulia Cavazos RN Nurse Coordinator Interventional Radiology Interventional Radiology Outpatient scheduling documented in this encounter [facility] 05-19-2022 Note Formatting of this n ote [...] Ongoing Goal: Interdisciplinary Rounds/Family Conf Outcome: Ongoing [facility] 05-19-2022 Note Formatting of this n ote might be different from the original. Discussed with [facility] re: possible urine culture performed at their facility. However, based on urinalysis completed at that time, which was only notable for hematuria, culture was not performed and sample no longer feasible for culture. Liam Julian MD Internal Medicine/Pediatrics, PGY-3 [facility] 05-18-2022 Note Formatting of this n ote might be different from the original. 2002: IHIS message sent to Dr Justyn Wen, regarding patient passing a small kidney stone, about the size of pea. MD notified. Stone left in strainer in pt bathroom. 0500: IHIS message sent to Dr Justyn Wen, regarding pt BP 174/77. [facility] 05-18-2022 Note Formatting of this n ote [...] outcomes by discharge/transition of care. Outcome: Ongoing [facility] 05-18-2022 Note Formatting of this n ote [...] becomes hyponatremic, NS should instead be used. [facility] Work Phone: 05-18-2022 Note Formatting of this n ote might be different from the original. IHIS chat sent to Dr Tray Quintana, regarding pt BP 190/86. Pt complaining of pain at site of neph tube. PRN pain medication given per order parameters. Pt denies any other symptoms at this time. MD notified and aware. [facility] 05-17-2022 Note Formatting of this n ote might be different from the original. At 0900, I rounded with Dr. Gamez and Dr. Saldana. At that time I checked Mr. Styles's vital signs. His pulse oximeter was low and he was tachypneic. Verbal order at bedside to put nasal cannula on starting at 2liters oxygen and to provide incentive spirometer. [facility] 05-17-2022 Note Formatting of this n ote might be different from the original. Interventional Radiology procedure completed with IR Attending Dr. Heart / Dr. Le of percutaneous right nephrostomy tube placement transplant kidney 10.2 Fr Griffin acosta Pt tolerated procedure with moderate sedation local numbing agent . Transported to inpatient after phase I recovery. Post procedure orders in place. [facility] 05-16-2022 Note Formatting of this n ote might be different from the original. At 1530, I text chavad Kaitlynn Gomez MD that patient has only had 25ml urine output in myers this afternoon. [facility] 05-16-2022 Note Formatting of this n ote [...] with questions. Evan Byrd MD Urology, PGY-2 #[id number] [facility] Work Phone: 05-16-2022 Note Formatting of this n ote might be different from the original. I certify that this patient requires inpatient services at this time. I anticipate the expected length of stay will include at least two midnights. Inpatient services are due to the following medical concerns Obstructive kidney stone. Plans for post hospitalization care will be discharge to home. [facility] 05-16-2022 Consult note Associated Order (s): IP CONSULT TO NEPHROLOGY - TRANSPLANT (MEDICINE) I saw George Styles at the [facility] on 05/16/2022. Reason for Consultation: kidney [...] he was given flomax and sent home. [place] better but noticed more pain and decreased [...] best assessment and recommendations. Maxi Pringle MD [facility] Work Phone: 05-16-2022 Consult note Associated Order (s): IP CONSULT TO NEPHROLOGY - TRANSPLANT (MEDICINE) I saw George Styles at the [facility] on 05/16/2022. Reason for Consultation: kidney [...] he was given flomax and sent home. [place] better but noticed more pain and decreased [...] states he went to his local ED [facility] and he was put on Flomax and he did improve. Pt states last night he was unable to void with severe right sided abd pain. Pt states nausea and no vomiting or fevers. Pt states he went back to [facility] ED at 0100 and they placed a [...] orthotopic (N/A, 04/12/2020); and kidney transplant w/o prairie band nephrectomy (N/A, 04/12/2020). 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 The prairie band kidneys are progressively atrophic bilaterally compared to [...] of 06/14/2020 are no longer present. The prairie band distal right ureter is decompressed beyond this [...] with surgical history for renal graft and prairie band right urinary drainage, as a discrete ureteroneocystostomy is not identified, and the graft may be draining via a ureteroureterostomy. Urology consultation recommended. 3. The prairie band kidneys are bilaterally atrophic, with right renal sinus calcifications consistent with nonobstructing right prairie band renal calculi up to 6 mm. Normal [...] PGY-3, Department of Urologic Surgery Pager #: [phone] Associated attestation - Ryan Yepez MD - [...] continue flomax documented in this encounter [facility] 05-16-2022 Note Formatting of this n [...] supported Trust Relationship/Rapport: care explained choices provided [facility] 05-16-2022 Note Formatting of this n ote might be different from the original. On admission to 0, a dual RN initial assessment of skin condition was performed by Kallie Lorenzana RN and Sheri Arguelles RN. Skin Assessment: WDL Jose Score: 20 LDA Added:N Kallie Lorenzana RN [facility] 05-15-2022 Emergency department Note Report given to Kallie RN at [facility] 05-15-2022 Emergency department Note Report given to Kallie RN at [facility] Bladder scan with Dr Villatoro at [...] diagnosed Thursday [facility]. [facility] [...] DAY SURGERY MAIN OR KIDNEY TRANSPLANT W/O KENAITZE NEPHRECTOMY N/A 04/12/2020 Laterality: N/A; Surgeon: LU Palma; Location: [facility] SAME DAY SURGERY MAIN OR OTHER SURGICAL [...] Schneider MD Resident 05/15/222030 Pt arrives from [facility] with kidney stones. Pt states he had right lower abd pain and right flank pain with blood in his urine since Thursday. Pt states he went to his local ED [facility] and he was put on Flomax and he did improve. Pt states last night he was unable to void with severe right sided abd pain. Pt states nausea and no vomiting or fevers. Pt states he went back to [facility] ED at 0100 and they placed a myers and CT scan completed and multiple kidney stones noted. [facility] as [facility] liver and kidney transplant in 03/2020. 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 Strength [...] dilation of the calyces may represent narrowing/partial [id number] ofthe ureter and mild hydronephrosis or sequela [...] Medicine [id number] documented in this encounter [facility] 05-15-2022 Emergency department Note Bladder scan with Dr Villatoro at bedside, 14ml noted [facility] 05-15-2022 Consult note Associated Order (s): [...] states he went to his local ED [facility] and he was put on Flomax and he did improve. Pt states last night he was unable to void with severe right sided abd pain. Pt states nausea and no vomiting or fevers. Pt states he went back to [facility] ED at 0100 and they placed a [...] orthotopic (N/A, 04/12/2020); and kidney transplant w/o prairie band nephrectomy (N/A, 04/12/2020). 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 The prairie band kidneys are progressively atrophic bilaterally compared to [...] of 06/14/2020 are no longer present. The prairie band distal right ureter is decompressed beyond this [...] with surgical history for renal graft and prairie band right urinary drainage, as a discrete ureteroneocystostomy is not identified, and the graft may be draining via a ureteroureterostomy. Urology consultation recommended. 3. The prairie band kidneys are bilaterally atrophic, with right renal sinus calcifications consistent with nonobstructing right prairie band renal calculi up to 6 mm. Normal [...] PGY-3, Department of Urologic Surgery Pager #: [phone] Associated attestation - Ryan Yepez MD - [...] before surgical intervention --may continue flomax [facility] Work Phone: 05-15-2022 Emergency department Note Advised Dr Schneider concerning no urine output via myers catheter. [facility] 05-15-2022 Physician Emergency department Note ED [...] plan of care. Gian Villatoro MD 05/15/222003 [facility] Work Phone: 05-15-[address] Schneider made aware of only 30 ml urine via myers since arrival to room. [facility] 05-15-2022 Physician Emergency department Note dEPARTMENT of [...] DAY SURGERY MAIN OR KIDNEY TRANSPLANT W/O KENAITZE NEPHRECTOMY N/A 04/12/2020 Laterality: N/A; Surgeon: LU [...] incorrections. Matt Schneider MD Resident 05/15/222030 [facility] Work Phone: 05-15-2022 Emergency department Note Pt arrives from [facility] with kidney stones. Pt states he had right lower abd pain and right flank pain with blood in his urine since Thursday. Pt states he went to his local ED [facility] and he was put on Flomax and he did improve. Pt states last night he was unable to void with severe right sided abd pain. Pt states nausea and no vomiting or fevers. Pt states he went back to [facility] ED at 0100 and they placed a myers and CT scan completed and multiple kidney stones noted. Pt [facility] as he had liver and kidney transplant in 03/2020. [facility] 03-14-2022 History of Present illness Narrative [facility]RE[facility]ED: Call Information: Date and Time of Contact: 03/14/2022 5:01 PM Method of Contact: By Phone Contact Type: Prescriptions Contactor: [facility] Contactee: Patient Shipping/Pickup: Medicare B Refill?: No Medication Name: Mycophenolate sodium 180 mg and tacrolimus 0.5 mg Delivery Method: Air Delivery Location: Home Signature Required: No Mailing/Pickup Date: 03/17/2022 Shipping Address: [address] [place] [address] [address] Contact Info: Specialty ([place]) [phone] [facility] [phone] [facility] [phone] David [phone] Bedside Delivery ([facility]) [phone] documented in this encounter [facility] 06-14-2021 History of Present illness Narrative [facility] [...] Goal Progress: Satisfactory Contact Info: Specialty ([place]) [phone] Jakob [phone] [facility] [phone] [facility] [phone] Bedside Delivery ([facility]) [phone] [facility]REACH: Call Information: Date [...] Location: Home Signature Required: Yes Shipping Address: [address] [place] [address] Contact Info: Specialty ([place]) [phone] [facility] [phone] [facility] [phone] [facility] [phone] Bedside Delivery ([facility]) [phone] [facility] Diagnosis FAYE (acute kidney injury)- Primary Acute kidney failure, unspecified Hydronephrosis due to obstruction of ureteral orifice Hydronephrosis due to obstruction of ureteral orifice FAYE (acute kidney injury) Acute kidney failure, unspecified [facility] Diagnosis Follow-up exam- Primary Unspecified follow-up examination [facility] Diagnosis Immunosuppressed status- Primary Unspecified disorder of immune mechanism Kidney replaced by transplant Liver replaced by transplant Abnormal blood chemistry Other abnormal blood chemistry High risk medication use Encounter for long-term (current) use of other medications Aftercare following organ transplant Liver transplant recipient [facility] Diagnosis Attention to nephrostomy- Primary [facility] Diagnosis Other hydronephrosis- Primary [facility] Diagnosis FAYE (acute kidney injury) Acute kidney failure, unspecified [facility] Diagnosis Other hydronephrosis- Primary -donor kidney transplant recipient Kidney replaced by transplant [facility] Diagnosis Other hydronephrosis [facility] Diagnosis 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) Encounter for screening for malignant neoplasm of prostate Special screening for malignant neoplasm of prostate [facility] Diagnosis Abnormal blood chemistry- Primary Other abnormal blood chemistry Liver transplant recipient Kidney replaced by transplant Immunosuppressed status Unspecified disorder of immune mechanism Aftercare following organ transplant [facility] Diagnosis Kidney replaced by transplant- Primary [facility] Diagnosis Immunosuppressed status- Primary Unspecified disorder of immune mechanism Kidney replaced by transplant Aftercare following organ transplant High risk medication use Encounter for long-term (current) use of other medications Other general symptoms and signs Abnormal blood chemistry Other abnormal blood chemistry Hypertension secondary to other renal disorders [facility] Diagnosis Histoplasmosis- Primary Histoplasmosis, unspecified [...] Fever, unspecified [facility] Consultation (Routine) - New Request Specialty Diagnoses / Procedures Referred By Deni edwards Referred To Contact Interventional Radiology Diagnoses Hydronephrosis due to obstruction of ureteral orifice Daya Saldana MD [address] [place] [address] Referral ID Status Reason Start Date Expiration Date V isits Requested Visits Authorized [id number] New Request 05/18/2022 06/12/2023 1 1 * Radiology (Emergency) - New Request Specialty Diagnoses / Procedures Referred By Deni edwards Referred To Contact Procedures US RENAL TRANSPLANT SCAN Daya Saldana MD [address] [place] [address] Referral ID Status Reason Start Date Expiration Date V isits Requested Visits Authorized [id number] New Request 05/16/2022 06/10/2023 1 1 * Consultation (Routine) - New Request Specialty Diagnoses / Procedures Referred By Deni edwards Referred To Contact Urology Diagnoses FAYE (acute kidney injury) Ryan Yepez MD [address] [facility] [address] [place] [address] Referral ID Status Reason Start Date Expiration Date V isits Requested Visits Authorized [id number] New Request 05/16/2022 06/10/2023 1 1 * MRI/CAT Scan (Routine) - New Request Specialty Diagnoses / Procedures Referred By Contac t Referred To Contact Diagnoses FAYE (acute kidney injury) Procedures CT ABDOMEN/PELVIS WITHOUT CONTRAST CHG CT SCAN,ABDOMENT AND PELVIS,W/O CONTRAST Ryan Yepez MD [address] [place] [address] Referral ID Status Reason Start Date Expiration Date V isits Requested Visits Authorized [id number] New Request 05/16/2022 06/10/2023 1 1 * (Routine) - Pending Review Specialty Diagnoses / Procedures Referred By Contac t Referred To Contact Procedures PLATELET MONITORING PER PROTOCOL Daya Saldana MD [address] [place] [address] Referral ID Status Reason Start Date Expiration Date V isits Requested Visits Authorized [id number] Pending Review 05/15/2022 06/09/2023 1 1 * (Routine) - Pending Review Specialty Diagnoses / Procedures Referred By Contac t Referred To Contact Procedures DVT/VTE RISK ASSESSMENT Daya Saldana MD [address] [place] [address] Referral ID Status Reason Start Date Expiration Date V isits Requested Visits Authorized [id number] Pending Review 05/15/2022 06/09/2023 1 1 * (Routine) Specialty Diagnoses / Procedures Referred By Contac t Referred To Contact Evan Bennett MD [address] [place] [address] Referral ID Status Reason Start Date Expiration Date Visits Re quested Visits Authorized * (Routine) Specialty Diagnoses / Procedures Referred By Contac t Referred To Contact Evan Bennett MD [address] [place] [address] Referral ID Status Reason Start Date Expiration Date Visits Re quested Visits Authorized [facility] for referral (narrative)* Consultation (Routine) - New Request Specialty Diagnoses / Procedures Referred By Contac t Referred To Contact Sleep Medicine Diagnoses Hypoxia eKvin Sage MD [address] [place] [phone] Referral ID Status Reason Start Date Expiration Date V isits Requested Visits Authorized [id number] New Request 09/10/2023 10/04/2024 1 1 * MRI/CAT Scan (Routine) - New Request Specialty Diagnoses / Procedures Referred By Contac t Referred To Contact Diagnoses Histoplasmosis Procedures CT CHEST WITHOUT CONTRAST CHG DIAGNOSTIC COMPUTED TOMOGRAPHY THORAX W/O CNTRST Kevin Sage MD [address] [place] [address] Referral ID Status Reason Start Date Expiration Date V isits Requested Visits Authorized [id number] New Request 09/10/2023 10/04/2024 1 1 * Radiology (Routine) - New Request Specialty Diagnoses / Procedures Referred By Deni t Referred To Contact Procedures US RENAL TRANSPLANT SCAN Steve Latham MBBS [address] [place] [address] Referral ID Status Reason Start Date Expiration Date V isits Requested Visits Authorized [id number] New Request 08/29/2023 09/22/2024 1 1 * (Routine) - New Request Specialty Diagnoses / Procedures Referred By Contac t Referred To Contact Procedures PLATELET MONITORING PER PROTOCOL Steve Latham MBBS [address] [place] [phone] Referral ID Status Reason Start Date Expiration Date V isits Requested Visits Authorized [id number] New Request 08/28/2023 09/21/2024 1 1 * (Routine) - New Request Specialty Diagnoses / Procedures Referred By Contac t Referred To Contact Procedures DVT/VTE RISK ASSESSMENT Steve Latham MBBS [address] [place] [phone] Referral ID Status Reason Start Date Expiration Date V isits Requested Visits Authorized [id number] New Request 08/28/2023 09/21/2024 1 1 [facility] Instructions * Patient Instructions - Christin Elizabeth APRN-ROB - 10/19/2018 9:21 AM EST You should take an extra dose of the lactulose as needed so that you are having 3-4 bowel movementsdaily. You should start the chemical dependency counseling as soon as possible. If you have questions, call the transplant social science analyst Melania Pierson. in this encounter* Patient Instructions - Sophie Cary RN - 10/12/2018 11:09 AM EST You have been seen in the pre-transplant evaluation clinic by Dr. Restrepo and Sophie Cary. Sophie Cary is your pre-regulatory compliance coordinator she can be reached at [phone] at any time for questions during the pre-transplant process. Your evaluation is complete pendin. Abdominal ultrasound. 2. 6 minute walk test. 3. Cardiology evaluation. Additionally, your system support administrator will recommend testing to screen for coronary artery disease. This will be scheduled for you after your cardiology visit. 4. Your coordinator will be requesting record from your last dental visit, colonoscopy and EGD. 5. Please work to complete social work recommendations. Your social science analyst will be contacting you to follow up on your progress. 6. You have also been referred for a kidney transplant. An appointment will be scheduled for you sari evaluated in the kidney transplant clinic after you have satisfied requirements dictated by [employer] company. Once your testing is complete, we [...] ___ Other Name MRN * Christin Elizabeth, BANK CREDIT CARD COLLECTION CLERK-HAND BOOKED FOLDER AND STITCHER - 10/19/2018 9:00 AM EST Formatting of this note may be different from the original. History of Present Illness: Chief Complaint Patient presents with Follow-up Cirrhosis George Styles is a 48 y.o. male who presents to the [facility] Gastroenterology Clinic today regarding his diagnosis/chief complaint(s) of Cirrhosis secondary to ETOH, with ESRD follows with Dr. Orr. Currently undergoing evaluation for liver/kidney transplant. Has been seen in transplant clinic for eval. Still undergoing pre testing. Diagnosed in April 2018. Last drink was immediately prior to hospital admission in [place] for ACLF. Hospital course notable for ARF [...] (human immunodeficiency virus infection); Hyperlipidemia; Hyperthyroidism; Hypothyroidism; NM (myocardial infarction); Migraine; DARLENE (obstructive sleep apnea); [...] kidney transplant evaluation. Pt was AOx3. Transplant Focus Puller role/function was explained and reviewed. The patient was informed that the results of this assessment will be shared with the referring provider and the transplant team. The patient verbalized understanding of this information. The [facility] psychosocial assessment consent form has been explained to patient and has been signed. Pt is completing this evaluation with brother (David) in the Outpatient setting. NANCYK educated pt on the benefits of completing/filing advanced directives and resources were offered. Pt identifies with RASTAFARI christian. Pt confirms being a [place] Citizen. Pt.'s primary language is Kazakh. Pt confirms the ability to read,write, and understand Kazakh. Pt denies potential donors. Donor cards and [...] has valid license, does not regularly drive ([facility] recommends that he not to drive). He [...] related disease etoh cirrohosis April dx in [facility] for thirty days. Pt reports learning [...] as well as referred him to pre regulatory compliance coordinator. Pt and support demonstrated moderate understanding [...] Patient's brother David is a self employed supervising librarian. Additional support includes his other brother Tyshawn and his Mary live fifteen minutes away. Of note Mary is a box maker paperboard for a [employer] is available to assist social sciences department chair. He confirms being comfortable asking for help. [...] in 2010, he was employed by the [employer]. He has access to SSDI payment (SSDI starts in November) in regards to financial means pre/ post-transplant. Pt confirms (meeting bills currently, ) being able to meet daily needs. Patient's brother asking for additional information on community resources, food stamps and [place]. Refer him to pt.'s dialysis center and the [facility]. Hereports access to Medicaid. Pt. [...] treatment after a DUI charge [facility] in [place], court ordered treatment in 2001 and in [...] by patient from his primary medical provider- HAND BOOKED FOLDER AND STITCHER patient was noted as attending an alcohol [...] He was provided with local AOD resources, [facility] AOD informational packet. Pt was referred [...] new visit Date of service: 10/12/2018 -Referring clinical trainer for today's consult: -Primary Care Provider: Zuly Bruno CC: Chief Complaint Patient presents with Liver Recipient Evaluation History of Present Illness George Styles is a 48 y.o. male who presents to the [facility] liver transplant surgery clinic today for [...] processes progressing rapidly Unknown * Elisa Tiwari, COIL WINDER STRAP - 10/12/2018 10:00 AM EST Timed up and go 9.9 seconds Glassie Left 52.8 pounds Right 44.9 pounds Waist circ 38.5 inches * Sophie Cary, SAMI - 10/12/2018 10:00 AM EST Formatting of this note may be different from the original. Patient George Styles ([id number]), accompanied by his brother, was seen on [...] any further questions. Sophie DON, RN Liver Plastic Block Boiler Reliner Etiology: ETOH HCC: No ETOH: Yes Last [...] Yovani Orr MD [address] [address] Status Reason Specialty Diagnoses / Procedures Referred By Contact Referred To Contact New Request Diagnoses Cirrhosis of liver with ascites, unspecified hepatic cirrhosis type Procedures US ABDOMEN RUQ/LIVER/GB Yovani Orr MD [address] [address] Specialty Diagnoses / Procedures Referred By Contac t Referred To Contact Diagnoses FAYE (acute kidney injury) Procedures CT ABDOMEN/PELVIS WITHOUT CONTRAST CHG CT SCAN,ABDOMENT AND PELVIS,W/O CONTRAST Central Scheduling [address] [place] [phone] Referral ID Status Reason Start Date Expiration Date V isits Requested Visits Authorized [id number] Pending Review 05/16/2022 06/10/2023 1 1 Specialty Diagnoses / Procedures Referred By Contac t Referred To Contact Diagnoses Other hydronephrosis Procedures FLUORO IMAGING FOR UROLOGY Ryan Yepez MD [address] [facility] [address] [place] [address] Referral ID Status Reason Start Date Expiration Date V isits Requested Visits Authorized [id number] New Request 07/07/2022 08/01/2023 1 1 Specialty Diagnoses / Procedures Referred By Contac t Referred To Contact Procedures DIRECT ADMIT REQUEST Steve Latham MBBS [address] [place] [address] Referral ID Status Reason Start Date Expiration Date V isits Requested Visits Authorized [id number] New Request 08/28/2023 09/21/2024 1 1 Advance Directives No Advanced Directives Records FoundDocuments on File Type Date Recorded Patient Cadmium Burner Expl anation Advance Directives and Living Will Power of Software Development Leader Latest Code Status on File Code Status [...] Yovani Orr MD [address] [address] Status Reason Specialty Diagnoses / Procedures Referre d By Contact Referred To Contact Denied Diagnoses Alcoholic cirrhosis, unspecified whether ascites present Pre-transplant evaluation for liver transplant Procedures MRI ABDOMEN WITH CONTRAST UT MRI, ABDOMEN W/CONTRAST Yovani Orr MD [address] [address] Reason Comments Liver Recipient Evaluation Status Reason Specialty Diagnoses / Procedures Referred By Contact Referred To Contact New Request Transplant / Transplant Surgery Procedures PRE NEW PATIENT Yovani Orr MD [address] [address] Alfredito Restrepo MD [address] [place] [address] Reason Comments Reschedule Reason Comments Outside Medical Records Request Reason Comments Social Work Follow-up Reason Comments Kidney Stone Specialty Diagnoses / Procedures Referred By Contac t Referred To Contact Diagnoses Obstructing kidney stone, s/p kidney transplant 2019 Daya Saldana MD [address] [place] [address] [facility] [address] [place] [address] Referral ID Status Reason Start Date Expiration Date Visits Re quested Visits Authorized [id number] 1 1 Reason Comments Follow-up Reason Comments Kidney Recipient Follow-up Liver Recipient Follow-up Reason Comments Consult Reason Comments New Patient Hospital follow up Specialty Diagnoses / Procedures Referred By Contac t Referred To Contact Urology Diagnoses hosp fu with [address] prior Procedures NEW TO DOC/RET PATIENT Zuly Bruno CNP [address] [place] [address] Ryan Yepez MD [address] [facility] [address] [place] [address] Referral ID Status Reason Start Date Expiration Date Visits Re quested Visits Authorized [id number] Closed 06/27/2022 07/22/2023 1 1 Specialty Diagnoses / Procedures Referred By Contac t Referred To Contact Diagnoses FAYE (acute kidney injury) Procedures CT ABDOMEN/PELVIS WITHOUT CONTRAST CHG CT SCAN,ABDOMENT AND PELVIS,W/O CONTRAST Central Scheduling [address] [place] [phone] Referral ID Status Reason Start Date Expiration Date V isits Requested Visits Authorized [id number] Pending Review 05/16/2022 06/10/2023 1 1 Reason Comments Follow-up Specialty Diagnoses / Procedures Referred By Contac t Referred To Contact Urology Diagnoses 1 week fu post NT clamp Procedures RETURN PATIENT Zuly Bruno CNP [address] [place] [address] Ryan Yepez MD [address] [facility] [address] [place] [address] Referral ID Status Reason Start Date Expiration Date Visits Requested Visits Authorized [id number] Authorized - 07/07/2022 08/01/2023 2 2 Specialty Diagnoses / Procedures Referred By Deni edwards Referred To Contact Diagnoses Other hydronephrosis Procedures FLUORO IMAGING FOR UROLOGY Ryan Yepez MD [address] [facility] [address] [place] [address] Referral ID Status Reason Start Date Expiration Date V isits Requested Visits Authorized [id number] New Request 07/07/2022 08/01/2023 1 1 Specialty Diagnoses / Procedures Referred By Deni edwards Referred To Contact Urology Diagnoses 1 week fu post NT clamp Procedures RETURN PATIENT Zuly Bruno, HAND BOOKED FOLDER AND STITCHER [address] [place] [address] Ryan Yepez MD [address] [facility] [address] [place] [address] Referral ID Status Reason Start Date Expiration Date Visits Re quested Visits Authorized [id number] Closed 07/07/2022 08/01/2023 2 2 Reason Comments Liver Recipient Follow-up Reason Comments Kidney Recipient Follow-up Reason Comments Kidney Recipient Follow-up Specialty Diagnoses / Procedures Referred By Deni edwards Referred To Contact Diagnoses Kidney replaced by transplant Steve Latham MBBS [address] [place] [address] [facility] [address] [place] [address] Referral ID Status Reason Start Date Expiration Date Visits Re quested Visits Authorized [id number] 1 1 (unrecognized sect ion and content) No Status Records FoundNo Status Records FoundNo Status Records FoundNo Status Records FoundNo Status Records FoundNo Status Records Found INFORMATION SOURCE (unrecogn ized section and content) DATE CREATED AUTHOR 01/07/2020 Karlie ariza DATE CREATED AUTHOR AUTHOR'S ORGANIZ ATION 01/27/2021 [facility] DATE CREATED AUTHOR AUTHOR'S ORGANIZ ATION 04/13/2023 [facility] DATE CREATED AUTHOR AUTHOR'S ORGANIZ ATION 05/11/[address] [facility] DATE CREATED AUTHOR AUTHOR'S ORGANIZ ATION 10/26/2023 [facility] DATE CREATED AUTHOR AUTHOR'S ORGANIZ ATION 11/05/2023 [facility] dicut Specialists EPIC Care Teams (unrecognized sec tion and content) [employer] Telephone Clerk Relationship Specialty Start Date End Date Zuly Bruno CNP PCP - General 07/19/18 Comfort Rivera, [facility] [address] [facility] [address] [place] [address] Pharmacist Pharmacist 05/16/[address] [facility],PharmD Pharmacist Pharmacist 05/16/[address] [facility],PharmD Pharmacist Pharmacist 01/09/21 [employer] Telephone Clerk Relationship Specialty Start Date End Date Zuly Bruno CNP PCP - General 07/19/18 Comfort Rivera, [facility] [address] [facility] [address] [place] [address] Pharmacist Pharmacist 05/16/[address] [facility],PharmD Pharmacist Pharmacist 05/16/[address] [facility],PharmD Pharmacist Pharmacist 01/09/21 [employer] Telephone Clerk Relationship Specialty Start Date End Date Zuly Bruno CNP PCP - General 07/19/18 [employer] Telephone Clerk Relationship Specialty Start Date End Date Zuly Bruno CNP PCP - General 07/19/18 [employer] Telephone Clerk Relationship Specialty Start Date End Date Zuly Bruno CNP PCP - General 07/19/18 [employer] Telephone Clerk Relationship Specialty Start Date End Date Zuly Bruno CNP PCP - General 07/19/18 [employer] Telephone Clerk Relationship Specialty Start Date End Date Zuly Bruno CNP PCP - General 07/19/18 [employer] Telephone Clerk Relationship Specialty Start Date End Date Zuly Bruno CNP PCP - General 07/19/18 [employer] Telephone Clerk Relationship Specialty Start Date End Date Zuly Bruno CNP PCP - General 07/19/18 [employer] Telephone Clerk Relationship Specialty Start Date End Date Zuly Bruno CNP PCP - General 07/19/18 [employer] Telephone Clerk Relationship Specialty Start Date End Date Zuly Bruno CNP PCP - General 07/19/18 [employer] Telephone Clerk Relationship Specialty Start Date End Date Zuly Bruno CNP PCP - General 07/19/18 [employer] Telephone Clerk Relationship Specialty Start Date End Date Zuly Bruno CNP PCP - General 07/19/18 [employer] Telephone Clerk Relationship Specialty Start Date End Date Zuly Bruno CNP PCP - General 07/19/18 [employer] Telephone Clerk Relationship Specialty Start Date End Date LexielydialatishaZuly tipton CNP PCP - General 07/19/18 [employer] Telephone Clerk Relationship Specialty Start Date End Date LexielydialatishaZuly tipton ROB PCP - General 07/19/18 [employer] Telephone Clerk Relationship Specialty Start Date End Date Zuly Bruno CNP PCP - General 07/19/18 Evan White DO [address] [place], [place] [id number] Infectious Disease Infectious Disease 09/09/23 [employer] Telephone Clerk Relationship Specialty Start Date End Date Zuly BrunoROB PCP - General 07/19/18 Evan White DO [address] [place], [place] [id number] Infectious Disease Infectious Disease 09/09/23 [employer] Telephone Clerk Relationship Specialty Start Date End Date Lexielydialatishaomer ZulyROB PCP - General 07/19/18 Evan White DO [address] [place], [place] [id number] Infectious Disease Infectious Disease 09/09/23 Scheduled Active [...] route needed. 0900 (Automatically Held - Provider: vEan Bennett MD)0959 (Unheld by provider - Provider: [...] Carolyn Isaac, SAMI)0806 (Given - Provider: Mel Hapmton, SAMI) 0825 (See Alternative - Provider: Josey [...] SAMI) 0958 (Given - Provider: Cheyanne Mcdonough, SAIM) Potassium chloride (K-DUR) tablet ER 20 mEq [...] BE BASED ON THE PRIMARY CLINICAL RECORDS. [employer] provides no warranty or guarantee of the accuracy or completeness of information in this document.
[2023-12-04 07:13] LABS: Basophils Percent Auto 0.7 % (0.2-2.0); Eosinophils Absolute Auto 0.1 10^3/uL (0.0-0.7); Eosinophils Percent Auto 2.1 % (0.9-7.0); Hematocrit 43.1 % (42.0-54.0); Hemoglobin 13.9 g/dL (14.0-18.0); Lymphocytes Absolute Auto 1.6 10^3/uL (1.2-3.8); Lymphocytes Percent Auto 37.8 % (20.5-60.0); Mean Corpuscular HGB Conc 32.3 g/dL (29.9-35.2); Mean Corpuscular Hemoglobin 28.2 pg (25.9-34.0); Mean Corpuscular Volume 87.4 fL (80.0-94.0); Mean Platelet Volume 10.1 fL (9.5-13.5); Monocytes Absolute Auto 0.4 10^3/uL (0.3-0.8); Monocytes Percent Auto 9.3 % (1.7-12.0); Neutrophils Absolute Auto 2.2 10^3/uL (1.4-6.5); Neutrophils Percent Auto 50.1 % (43.0-75.0); Platelet Count 196 10^3/uL (150-450); Red Blood Count 4.93 10^6/uL (4.70-6.10); White Blood Count 4.3 10^3/uL (4.0-11.0)
[2023-12-04 10:24] LABS: Creatinine Urine Random 135.23 mg/dL (20.00-300.00); Protein Creatinine Ratio Urine 0.14; Total Protein Urine Random 18.8 mg/dL (<=11.9)
[2023-12-04 10:28] LABS: Alanine Aminotransferase 37 U/L (16-63); Albumin Level 3.8 g/dL (3.4-5.0); Alkaline Phosphatase 85 U/L (46-116); Anion Gap 11.4; Aspartate Amino Transferase 22 U/L (15-37); BUN Creatinine Ratio 17.8; Bilirubin Direct 0.4 mg/dL (0.0-0.2); Bilirubin Total 2.1 mg/dL (0.2-1.0); Calcium 9.6 mg/dL (8.5-10.1); Carbon Dioxide 24.4 mmol/L (21.0-32.0); Chloride 104 mmol/L (98-107); Estimated GFR (African America >60 (>=60); Estimated GFR (Non-African Ame >60 (>=60); Gamma Glutamyl Transpeptidase 16 U/L (15-85); Glucose 110 mg/dL (74-106); Magnesium 1.6 mg/dL (1.8-2.4); Phosphorus 3.3 mg/dL (2.6-4.7); Potassium 3.8 mmol/L (3.5-5.1); Sodium 136 mmol/L (136-145)
[2023-12-08 05:09] LABS: Tacrolimus (FK506), Blood 5.3 ng/mL (2.0-20.0)
== END 2023-12-04 06:41 | disposition home or self-care (01) ==
LOC: LAB 06:42
PROVIDERS: PCP Nurse Practitioner
DX: R79.9 Abnormal finding of blood chemistry, unspecified (principal); Z94.0 Kidney transplant status; Z48.298 Encounter for aftercare following other organ transplant; D84.9 Immunodeficiency, unspecified; Z94.4 Liver transplant status; B39.9 Histoplasmosis, unspecified
CPT/HCPCS: 36415; 80048; 80189; 80197; 82042; 82247; 82248; 82570; 82977; 83735; 84075; 84100; 84156; 84450; 84460; 85025

== ENCOUNTER 2023-12-11 06:40 | Outpatient (OUT) | payer MEDICARE, MEDICAID, SELFPAY ==
--- OUTSIDE RECORDS SUMMARY | 2023-12-11 06:48 | XMS_ITS | CCD ---
Author Name Unknown Address [address] [place] [address] Organization [facility] Care Team Providers Care Hotel Maid Name Role Phone Kiana Zuly Unavailable Unavailable [...] Unavailable AICHHOLZ, ZULY Primary Care Unavailable Aichholz [facility], Zuly Primary Care Provider [phone] Miguel HComfort Unavailable Shirin RPh,PharmD, Angel Unavailable Unavailab makayla Leigh RP,PharmD, Te Unavailable Unavamatthew lable Aicholz [facility] Primary Care Provider MIGUEL CARDONA Attending Unavailable MISC, DR BURCH Admitting Unavailable MISC, DR BURCH Consulting Unavailable AICHHOLZ, [employer] ZULY Primary Care Unavailable MISC, DR BURCH Attending Unavailable MISC, DR BURCH Admitting Unavailable MISC, DR BURCH Consulting Unavailable AICHHOLZ, [employer] ZULY Primary Care Unavailable MISC, DR BURCH Attending Unavailable ARCELIA PIZARRO Consulting Unavailable KE BURNHAM Attending Unavailable KE BURNHAM Admitting Unavailable DR MÓNICA JIMENEZ Consulting Unavailable AICHHOLZ, [employer] WORK[employer] ZULY Primary Care Unavailable KE BURNHAM Consulting Unavailable MISC, DR DOCTOR Consulting Unavailable MISC, DR DOCTOR Attending Unavailable AICHHOL, [facility] ZULY Primary Care Unavailable MISC, DR DOCTOR Admitting Unavailable MISC, DR DOCTOR Consulting Unavailable MISC, DR DOCTOR Attending Unavailable AICHHOL, [facility] ZULY Primary Care Unavailable MISC, DOCTOR Admitting Unavailable MISC, DR DOCTOR Consulting Unavailable AICHHOL, [facility] ZULY Primary Care Unavailable MISC, DOCTOR Admitting Unavailable MISC, DR DOCTOR Attending Unavailable MELINDA, DR GEORGE Munoz Consulting Unavailable MELINDA, DR GEORGE Munoz Attending Unavailable AICHHOLZ, [facility] ZULY Primary Care Unavailable MELINDA, DR GEORGE Munoz Admitting Unavailable NAUN ., KE Consulting Unavailable MIRANDA, LYNDSAY Consulting Unavailable MELINDA, DR GEORGE Munoz Consulting Unavailable NAUN ., KE Attending Unavailable NAUN ., KE Admitting Unavailable AICHHOLZ, [facility] ZULY Primary Care Unavailable NAUN ., KE Consulting Unavailable GIAN HERRING Consulting Unavailable AICHOL, [employer] ZULY Consulting Unavailable AICHOL, [employer] WORK[employer] ZULY Attending Unavailable AICHOL, [employer] WORK[employer] ZULY Admitting Unavailable AICHHOL, [facility] ZULY Primary Care Unavailable MISC, DR Consulting Unavailable MISC, DR BURCH Admitting Unavailable MISC, DR DOCTOR Attending Unavailable AICHHOLZ, [facility] ZULY Primary Care Unavailable MISC, DR Consulting Unavailable MISC, DR DOCTOR Attending Unavailable MISC, DOCTOR Admitting Unavailable AICHHOLZ, [facility] ZULY Primary Care Unavailable MISC, DR BURCH Admitting Unavailable MISC, DR Consulting Unavailable MISC, DR DOCTOR Attending Unavailable AICHHOL, [facility] ZULY Primary Care Unavailable MISC, DR DOCTOR Admitting Unavailable MISC, DR DOCTOR Consulting Unavailable AICHOL, [facility] ZULY Primary Care Unavailable MISC, DR DOCTOR Attending Unavailable MISC, DOCTOR Admitting Unavailable MISC, DR DOCTOR Consulting Unavailable AICHHOL, [facility] ZULY Primary Care Unavailable MISC, DR DOCTOR Attending Unavailable AICHOL, [employer] WORK[employer] ZULY Consulting Unavailable [facility], CASINO GAMING WORKER ZULY Attending [facility]available [facility] ZULY Admitting Unavailable [facility] Primary Care Unavailable DR MÓNICA JIMENEZ Consulting Unavailable [facility] Primary Care Provider [phone] Cindy WHIPPLETranjuan j Feliz Unavailable [phone] [facility] Primary Care Provider Evan White DO Unavailable AICHHOLZ, ZULY Primary Care Unavailable AICHHOLZ, ZULY Primary Care Unavailable AICHHOLZ, ZULY Primary Care Unavailable STEVE LATHAM Attending Unavailable AICHHOLZ, ZULY Primary Care Unavailable STEVE LATHAM Referring Unavailable AICHHOLZ, ZULY Primary Care Unavailable EVAN WHITE Referring Unavailyoko e HAKEEM ALAMO Attending Unavailable AICHHOLZ, ZULY Primary Care Unavailable DAISAH MAX Referring Unavailable DAISHA MAX Attending Unavailable [...] Propensity to adverse reactions (disorder) 8 [facility] (20 sources) Shellfish-Derive d Products Propensity to adverse reactions to drug 9 [facility] (1 source) Shellfish Drug allergy (disorder) [facility] Rep[facility] Medications Current Medications Medication Drug Class(es) [...] 1 capsule by mouth once daily b vevcoiq-C-eqzgu acid (NEPHROCAPS) 1 MG capsule Take 1 [...] itraconazole Fax results to: Dr. White - [phone] Transplant Neph - [phone] Each 0 09/10/2023 Active Drug or [...] ankle pain. 0 06/12/2020 06/12/2023 Discontinued lactulose 31224 mg powder for oral solution (19 sources) [...] EVERY 12 HOURS NON-STANDARD, First dose on [facility] 05/15/22 at 2245, Until Discontinued Give on [...] needed. Start: 08-20-2022 [facility] Tacrolimus (PROGRAF) 0.5 [...] needed. Start: 03-14-2022 take 1 [facility] twelve hours tacrolimus (PROGRAF) 0.5 [...] Start: 05-23-2022 take 1 capsule by mo [facility] once daily Tamsulosin HCl 0.4 MG [...] Discontinued Start: 01-15-2023 take 2 tablets [facility] once daily Allopurinol 100 MG tablet Indications: Abnormal blood chemistry Take 2 tablets by mouth daily. 180 tablet 3 01/15/2023 Active Start: 05-17-2022 End: 05-20-2022 allopurinol (ZYLOPRIM) table t 100 mg Start: 05-16-2022 End: 05-16-2022 take 200 mg by mouth once daily 200 mg, Oral, DAILY, F irst dose on Thu05/16/22 at 0900, Until Discontinued Start: 12-30-2021 take 2 tablets [facility] daily allopurinol 100 MG tablet Indications: Abnormal blood chemistry take 2 tablets by mouth once daily 180 tablet 3 12/30/2021 Active Start: 01-28-2021 take 2 tablets [facility] daily allopurinol 100 MG tablet [...] (ROXICODONE) tablet 10 mg polyethylene glycol 3350 33991 mg powder for oral solution (20 sources) [...] ( K-PHOS NEUTRAL) tablet 1,000 mg sennosides, jail 8.6 mg oral tablet (1 source) Start: [...] Coronary arteriosclerosis; 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: [Atherosclerotic heart disease of [place] coronary artery without angina pectoris] Onset: 04-13-2023 [...] sources) Taking high risk medication; 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: [Other skilled nursing (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] Episodic Other aftercare (3 sources) 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; 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] Onset: 07-06-2022 Episodic Other [...] 05-10-2020 05-10-2020 Episodic Other aftercare (1 source) [facility] (current) use of aspirin; 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: [SITE SUPERVISING TECHNICAL OPERATOR CURRENT USE OF ASPIRIN] Onset: 06-20-2022 Episodic [...] Anion gap [Moles/Vol] 13 mmol/L Normal 7-17 [facility] Comment on above: Performed By: #### C HM7, MGO ####[facility] (DEFAULT)[address] [facility] [place] [address] Chloride [Moles/Vol] 111 mmol/L High 98-108 [facility] Comment on above: Performed By: #### C HM7, MGO ####[facility] (DEFAULT)[address] [place] [address] CO2 [Moles/Vol] 20 mmol/L Low 21-31 [facility] Comment on above: Performed By: #### C HM7, MGO ####[facility] (DEFAULT)[address] [place] [address] Creatinine [Mass/Vol] 1.13 mg/dL Normal 0.70-1.30 [facility] Comment on above: Performed By: #### C HM7, MGO ####[facility] (DEFAULT)[address] [place] [address], [place] [address] GFR/1.73 sq M.predicted among non-blacks MDRD (S/P/Bld) [Vol rate/Area] 78 mL/min/{1.73_m2} Normal >=60 [facility] Comment on above: Result Comment: Repo rted eGFR is based on the CKD-EPI 2020 equation using creatinine, age, and sex. Performed By: #### C HM7, MGO ####[facility] (DEFAULT)[address] [facility] [place] [address] Glucose [Mass/Vol] 109 mg/dL High 70-99 [facility] Comment on above: Performed By: #### C HM7, MGO ####[facility] (DEFAULT)[address] [place] [address] Osmolality [Osmolality] 295 mosm/kg Normal 278-305 [facility] Comment on above: Performed By: #### C HM7, MGO ####[facility] (DEFAULT)[address] [place] [address] Potassium [Moles/Vol] 4.3 mmol/L Normal 3.5-5.0 [facility] Comment on above: Performed By: #### C HM7, MGO ####[facility] (DEFAULT)[address] [facility] [place] [address] Sodium [Moles/Vol] 140 mmol/L Normal 135-145 [facility] Comment on above: Performed By: #### Chinedu HM7, MGO ####[facility] (DEFAULT)[address] [place] [address] Urea nitrogen [Mass/Vol] 16 mg/dL Normal 7-25 [facility] Comment on above: Performed By: #### Chinedu HM7, MGO ####[facility] (DEFAULT)[address] [facility] [place] [address] Urea nitrogen/Creatinine [Mass ratio] 14 mg/mg Normal [facility] Comment on above: Performed By: #### Chinedu HM7, MGO ####[facility] (DEFAULT)[address] [place] [address] Anion gap [Moles/Vol] 13 mmol/L 7 - 17 mmol/L [facility] Chloride [Moles/Vol] 111 mmol/L High 98 - 10 8 mmol/L [facility] CO2 [Moles/Vol] 20 mmol/L Low 21 - 31 mmol/L [facility] Creatinine [Mass/Vol] 1.13 mg/dL 0.70 - 1.30 mg/dL [facility] eGFR, CKD-EPI, Male 78 - [facility] Glucose [Mass/Vol] 109 mg/dL High 70 - 99 mg/dL [facility] Interpretation and review of laboratory results Abnormal [facility] Osmolality Calc [Osmolality] 295 [facility] Potassium [Moles/Vol] 4.3 mmol/L 3.5 - 5.0 mmol/L [facility] Sodium [Moles/Vol] 140 mmol/L 135 - 145 mmol/L [facility] Urea nitrogen [Mass/Vol] 16 mg/dL 7 - 25 mg/dL [facility] Urea nitrogen/Creatinine [Mass ratio] 14 mg/mg [facility] GLUCOSE POCon 09-11-2023 Glucose [Mass/Vol] 108 mg/dL High 70 - 99 mg/dL [facility] Interpretation and review of laboratory results Abnormal [facility] POC Sample Type CAPBL [facility] Legionella sp identified Org specific cx Nom (Unsp spec)on 09-11-2023 Bacteria identified Cx Nom (Unsp spec) NO GROWTH DAY 7 OF 7 [facility] MAGNESIUMon 09-11-2023 Magnesium [Mass/Vol] 1.6 mg/dL Normal 1.6-2.6 [facility] Comment on above: Performed By: #### C 7, MGO ####[facility] (DEFAULT)[address] [place] [address] Interpretation and review of laboratory results Normal [facility] Magnesium [Mass/Vol] 1.6 mg/dL 1.6 - 2 .6 mg/dL [facility] No Panel Informationon 09-11 [facility] TACROLIMUS LEVEL, TROUGH (MI E DRUG LEVEL)on 09-11-2023 Interpretation and review of laboratory results Normal [facility] Tacrolimus (Bld) [Mass/Vol] 11.5 ng/mL [facility] Tacrolimus, Trough 11.5 ng/mL Normal Bone Susana ow Transplant: 4.0-12.0, Therapeutic: 5.0-15.0 [facility] Comment on above: Order Comment: Pleas e draw at specified interval PRIOR to dose. Do not hold dose to wait for level. Specimens batched twice per day, (M-F) and once per day weekendsMethod performed is a chemiluminescent microparticle immunoasssay on the [employer] i2000.The range is based on experience at [facility] and users should be aware that target concentrations vary widely depending on concomitant therapy, time post-transplant, and desired degree of immunosuppression. Performed By: #### T ACRO ####[facility] (DEFAULT)[address] [place] [address] CBC,PLATELETSon 09-10-2023 Hematocrit (Bld) [Volume fraction] 40.0 % Normal 39.6-48.8 [facility] Comment on above: Performed By: #### H EMOGC ####[facility] (DEFAULT)[address] [facility] [place] [address] Hemoglobin (Bld) [Mass/Vol] 12.7 g/dL Low 13.4-16.8 [facility] Comment on above: Performed By: #### H EMOGC ####[facility] (DEFAULT)[address] [facility] [place] [address] MCV (RBC) [Entitic vol] 86.0 fL Normal 79.0-94.5 [facility] Comment on above: Performed By: #### H EMOGC ####[facility] (DEFAULT)[address] [facility] [place] [address] Mean Cell Hgb 27.3 pg Normal 26.1-33.3 [facility] Comment on above: Performed By: #### H EMOGC ####[facility] (DEFAULT)[address] [facility] [place] [address] Mean Cell Hgb Conc 31.8 g/dL Low 31.9-36.5 [facility] Comment on above: Performed By: #### H EMOGC ####[facility] (DEFAULT)[address] [facility] [place] [address] Platelet mean volume (Bld) [Entitic vol] 9.5 fL Normal 8.7-12.3 [facility] Comment on above: Performed By: #### H EMO ####[facility] (DEFAULT)[address] [facility] [place] [address] Platelets (Bld) [#/Vol] 225 10*3/uL Normal 146-337 [facility] Comment on above: Performed By: #### H EMO ####[facility] (DEFAULT)[address] [place] [address] RBC (Bld) [#/Vol] 4.65 10*6/uL Normal 4.38-5.83 [facility] Comment on above: Performed By: #### H EMO ####[facility] (DEFAULT)[address] [facility] [place] [address] RBC Distribution 13.9 % Normal 10.9-14.3 [facility] Comment on above: Performed By: #### H EMO ####[facility] (DEFAULT)[address] [place] [address] WBC (Bld) [#/Vol] 6.52 10*3/uL Normal 3.73-10.10 [facility] Comment on above: Performed By: #### H EMO ####[facility] (DEFAULT)[address] [place] [address] Erythrocyte distribution width (RBC) [Ratio] 13.9 % 10.9 - 14.3 % [facility] Hematocrit (Bld) [Volume fraction] 40.0 % 39.6 - 48.8 % [facility] Hemoglobin (Bld) [Mass/Vol] 12.7 g/dL Low 13.4 - 16.8 g/dL [facility] Interpretation and review of laboratory results Abnormal [facility] MCH (RBC) [Entitic mass] 27.3 pg 26.1 - 33.3 pg [facility] MCHC (RBC) [Mass/Vol] 31.8 g/dL Low 31.9 - 36.5 g/dL [facility] MCV (RBC) [Entitic vol] 86.0 fL 79.0 - 94.5 fL [facility] Platelet mean volume (Bld) [Entitic vol] 9.5 fL 8.7 - 12.3 fL [facility] Platelets (Bld) [#/Vol] 225 10*3/uL 146 - 337 K/uL [facility] RBC (Bld) [#/Vol] 4.65 10*6/uL [facility] WBC (Bld) [#/Vol] 6.52 10*3/uL 3.73 - 10. 10 K/uL [facility] CHEM 7 (LYTES,BUN,CREA,GLUC) on 09-10-2023 Anion gap [Moles/Vol] 13 mmol/L Normal 7-17 [facility] Comment on above: Performed By: #### T ACRO #### [facility] (DEFAULT) [address] [address] Chloride [Moles/Vol] 111 mmol/L High 98-108 [facility] Comment on above: Performed By: #### T ACRO #### [facility] (DEFAULT) [address] [address] CO2 [Moles/Vol] 20 mmol/L Low 21-31 [facility] Comment on above: Performed By: #### T ACRO #### [facility] (DEFAULT) [address] [address] Creatinine [Mass/Vol] 1.27 mg/dL Normal 0.70-1.30 [facility] Comment on above: Performed By: #### T ACRO #### [facility] (DEFAULT) [address] [address] GFR/1.73 sq M.predicted among non-blacks MDRD (S/P/Bld) [Vol rate/Area] 68 mL/min/{1.73_m2} Normal >=60 [facility] Comment on above: Result Comment: Repo rted eGFR is based on the CKD-EPI 2020 equation using creatinine, age, and sex. Performed By: #### T ACRO #### [facility] (DEFAULT) [address] [place] [address] Glucose [Mass/Vol] 100 mg/dL High 70-99 [facility] Comment on above: Performed By: #### T ACRO #### [facility] (DEFAULT) [address] [place] [address] Osmolality [Osmolality] 293 mosm/kg Normal 278-305 [facility] Comment on above: Performed By: #### T ACRO #### [facility] (DEFAULT) [address] [place] [address] Potassium [Moles/Vol] 4.4 mmol/L Normal 3.5-5.0 [facility] Comment on above: Performed By: #### T ACRO #### [facility] (DEFAULT) [address] [place] [address] Sodium [Moles/Vol] 140 mmol/L Normal 135-145 [facility] Comment on above: Performed By: #### T ACRO #### [facility] (DEFAULT) [address] [place] [address] Urea nitrogen [Mass/Vol] 12 mg/dL Normal 7-25 [facility] Comment on above: Performed By: #### T ACRO #### [facility] (DEFAULT) [address] [place] [address] Urea nitrogen/Creatinine [Mass ratio] 9 mg/mg Normal [facility] Comment on above: Performed By: #### T ACRO #### [facility] (DEFAULT) [address] [place] [address] Anion gap [Moles/Vol] 13 mmol/L 7 - 17 mmol/L [facility] Chloride [Moles/Vol] 111 mmol/L High 98 - 10 8 mmol/L [facility] CO2 [Moles/Vol] 20 mmol/L Low 21 - 31 mmol/L [facility] Creatinine [Mass/Vol] 1.27 mg/dL 0.70 - 1.30 mg/dL [facility] eGFR, CKD-EPI, Male 69 - PINF [facility] Glucose [Mass/Vol] 100 mg/dL High 70 - 99 mg/dL [facility] Osmolality Calc [Osmolality] 293 [facility] Potassium [Moles/Vol] 4.4 mmol/L 3.5 - 5.0 mmol/L [facility] Sodium [Moles/Vol] 140 mmol/L 135 - 145 mmol/L [facility] Urea nitrogen [Mass/Vol] 12 mg/dL 7 - 25 mg/dL [facility] Urea nitrogen/Creatinine [Mass ratio] 9 mg/mg [facility] HEPATIC FUNCTION PANELon Albumin [Mass/Vol] 3.3 g/dL Low 3.5-5.0 [facility] Comment on above: Performed By: #### T ACRO #### [facility] (DEFAULT) [address] [place] [address] ALP [Catalytic activity/Vol] 143 U/L High 32-126 [facility] Comment on above: Performed By: #### T ACRO #### [facility] (DEFAULT) [address] [place] [address] ALT [Catalytic activity/Vol] 28 U/L Normal 10-52 [facility] Comment on above: Performed By: #### T ACRO #### [facility] (DEFAULT) [address] [place] [address] AST [Catalytic activity/Vol] 29 U/L Normal 10-39 [facility] Comment on above: Performed By: #### T ACRO #### [facility] (DEFAULT) [address] [place] [address] Bilirubin [Mass/Vol] 0.9 mg/dL Normal <1.5 [facility] Comment on above: Performed By: #### T ACRO #### [facility] (DEFAULT) [address] [place] [address] Bilirubin.indirect [Mass/Vol] 0.2 mg/dL Normal <0.3 [facility] Comment on above: Performed By: #### T ACRO #### [facility] (DEFAULT) [address] [place] [address] Protein [Mass/Vol] 6.8 g/dL Normal 6.4-8.3 [facility] Comment on above: Performed By: #### T ACRO #### [facility] (DEFAULT) [address] [place] [address] Albumin [Mass/Vol] 3.3 g/dL Low 3.5 - 5.0 g/dL [facility] ALP [Catalytic activity/Vol] 143 U/L High 32 - 126 U/L [facility] ALT [Catalytic activity/Vol] 28 U/L 10 - 52 U/L [facility] AST [Catalytic activity/Vol] 29 U/L 10 - 39 U/L [facility] Bilirubin [Mass/Vol] 0.9 mg/dL [facility] mg/dL [facility] Bilirubin.direct [Mass/Vol] 0.2 mg/dL NINF - 0.3 mg/dL [facility] Protein [Mass/Vol] 6.8 g/dL 6.4 - 8.3 g/dL [facility] MAGNESIUMon 09-10-2023 Magnesium [Mass/Vol] 1.9 mg/dL Normal 1.6-2.6 [facility] Comment on above: Performed By: #### T ACRO #### [facility] (DEFAULT) [address] [place] [address] Interpretation and review of laboratory results Normal [facility] Magnesium [Mass/Vol] 1.9 mg/dL 1.6 - 2 .6 mg/dL [facility] No Panel Informationon 09-10 Interpretation and review of laboratory results Abnormal [facility] TACROLIMUS LEVEL, TROUGH (MI E DRUG LEVEL)Ordered By: Jimy Castillo on 09-10-2023 Interpretation and review of laboratory results Normal [facility] Tacrolimus (Bld) [Mass/Vol] 11.8 ng/mL [facility] TACROLIMUS LEVEL, TROUGH (MI E DRUG LEVEL)on 09-10-2023 Tacrolimus, Trough 11.8 ng/mL Normal Bone Susana ow Transplant: 4.0-12.0, Therapeutic: 5.0-15.0 [facility] Comment on above: Order Comment: Pleas e draw at specified interval PRIOR to dose. Do not hold dose to wait for level. Specimens batched twice per day, (M-) and once per day weekends Method performed is a chemiluminescent microparticle immunoasssay on the [employer] i2000. The range is based on experience at [facility] and users should be aware that target concentrations vary widely depending on concomitant therapy, time post-transplant, and desired degree of immunosuppression. Performed By: #### T ACRO #### [facility] (DEFAULT) [address] [place] [address] CHEM 7 (LYTES,BUN,CREA,GLUC) on 09-09-2023 Anion gap [Moles/Vol] 14 mmol/L Normal 7-17 [facility] Comment on above: Performed By: #### C HM7, IPB, MGO ####[facility] (DEFAULT)[address] [place] [address] Chloride [Moles/Vol] 113 mmol/L High 98-108 [facility] Comment on above: Performed By: #### C HM7, IPB, MGO ####[facility] (DEFAULT)[address] [place] [address] CO2 [Moles/Vol] 18 mmol/L Low 21-31 [facility] Comment on above: Performed By: #### C HM7, IPB, MGO ####[facility] (DEFAULT)[address] [place] [address] Creatinine [Mass/Vol] 1.03 mg/dL Normal 0.70-1.30 [facility] Comment on above: Performed By: #### JO ANN GONG, MGO ####[facility] (DEFAULT)[address] [place] [address] GFR/1.73 sq M.predicted among non-blacks MDRD (S/P/Bld) [Vol rate/Area] 87 mL/min/{1.73_m2} Normal >=60 [facility] Comment on above: Result Comment: Repo rted eGFR is based on the CKD-EPI 2020 equation using creatinine, age, and sex. Performed By: #### JO ANN GONG, MGO ####[facility] (DEFAULT)[address] [place] [address] Glucose [Mass/Vol] 106 mg/dL High 70-99 [facility] Comment on above: Performed By: #### JO ANN GONG, MGO ####[facility] (DEFAULT)[address] [place] [address] Osmolality [Osmolality] 294 mosm/kg Normal 278-305 [facility] Comment on above: Performed By: #### JO ANN GONG, MGO ####[facility] (DEFAULT)[address] [place] [address] Potassium [Moles/Vol] 4.0 mmol/L Normal 3.5-5.0 [facility] Comment on above: Performed By: #### JO ANN GONG, MGO ####[facility] (DEFAULT)[address] [facility] [place] [address] Sodium [Moles/Vol] 141 mmol/L Normal 135-145 [facility] Comment on above: Performed By: #### JO ANN GONG, MGO ####[facility] (DEFAULT)[address] [facility] [place] [address] Urea nitrogen [Mass/Vol] 10 mg/dL Normal 7-25 [facility] Comment on above: Performed By: #### JO ANN GONG MGO ####[facility] (DEFAULT)[address] [place] [address] Urea nitrogen/Creatinine [Mass ratio] 10 mg/mg Normal [facility] Comment on above: Performed By: #### JO ANN GONG MGO ####[facility] (DEFAULT)[address] [place] [address] Anion gap [Moles/Vol] 14 mmol/L 7 - 17 mmol/L [facility] Chloride [Moles/Vol] 113 mmol/L High 98 - 10 8 mmol/L [facility] CO2 [Moles/Vol] 18 mmol/L Low 21 - 31 mmol/L [facility] Creatinine [Mass/Vol] 1.03 mg/dL 0.70 - 1.30 mg/dL [facility] eGFR, CKD-EPI, Male 87 - PINF [facility] Glucose [Mass/Vol] 106 mg/dL High 70 - 99 mg/dL [facility] Interpretation and review of laboratory results Abnormal [facility] Osmolality Calc [Osmolality] 294 [facility] Potassium [Moles/Vol] 4.0 mmol/L 3.5 - 5.0 mmol/L [facility] Sodium [Moles/Vol] 141 mmol/L 135 - 145 mmol/L [facility] Urea nitrogen [Mass/Vol] 10 mg/dL 7 - 25 mg/dL [facility] Urea nitrogen/Creatinine [Mass ratio] 10 mg/mg [facility] MAGNESIUMon 09-09-2023 Magnesium [Mass/Vol] 1.6 mg/dL Normal 1.6-2.6 [facility] Comment on above: Performed By: #### JO ANN GONG, MGO ####[facility] (DEFAULT)[address] [place] [address] Magnesium [Mass/Vol] 1.6 mg/dL 1.6 - 2 .6 mg/dL [facility] No Panel Informationon 09-09 Interpretation and review of laboratory results Normal [facility] PHOSPHATE, INORGANICon 09-09 Phosphorous 3.8 mg/dL Normal 2.2-4.6 [facility] Comment on above: Performed By: #### C HM7, IPB, MGO ####[facility] (DEFAULT)[address] [place] [address] Phosphate [Mass/Vol] 3.8 mg/dL 2.2 - 4 .6 mg/dL [facility] TACROLIMUS LEVEL, TROUGH (MI E DRUG LEVEL)on 09-09-2023 Interpretation and review of laboratory results Normal [facility] Tacrolimus (Bld) [Mass/Vol] 9.2 ng/mL [facility] Tacrolimus, Trough 9.2 ng/mL Normal Bone Susana ow Transplant: 4.0-12.0, Therapeutic: 5.0-15.0 [facility] Comment on above: Order Comment: Pleas e draw at specified interval PRIOR to dose. Do not hold dose to wait for level. Specimens batched twice per day, (M-F) and once per day weekendsMethod performed is a chemiluminescent microparticle immunoasssay on the [employer] i2000.The range is based on experience at [facility] and users should be aware that target concentrations vary widely depending on concomitant therapy, time post-transplant, and desired degree of immunosuppression. Performed By: #### H EMO #### [facility] (DEFAULT) [address] [place] [address] CBC,PLATELETSon 09-08-2023 Hematocrit (Bld) [Volume fraction] 36.1 % Low 39.6-48.8 [facility] Comment on above: Performed By: #### T ACRO #### [facility] (DEFAULT) [address] [place] [address] Hemoglobin (Bld) [Mass/Vol] 11.6 g/dL Low 13.4-16.8 [facility] Comment on above: Performed By: #### T ACRO #### [facility] (DEFAULT) [address] [place] [address] MCV (RBC) [Entitic vol] 85.1 fL Normal 79.0-94.5 [facility] Comment on above: Performed By: #### T ACRO #### [facility] (DEFAULT) [address] [address] Mean Cell Hgb 27.4 pg Normal 26.1-33.3 [facility] Comment on above: Performed By: #### T ACRO #### [facility] (DEFAULT) [address] [address] Mean Cell Hgb Conc 32.1 g/dL Normal 31.9-36.5 [facility] Comment on above: Performed By: #### T ACRO #### [facility] (DEFAULT) [address] [address] Platelet mean volume (Bld) [Entitic vol] 9.5 fL Normal 8.7-12.3 [facility] Comment on above: Performed By: #### T ACRO #### [facility] (DEFAULT) [address] [address] Platelets (Bld) [#/Vol] 182 10*3/uL Normal 146-337 [facility] Comment on above: Performed By: #### T ACRO #### [facility] (DEFAULT) [address] [address] RBC (Bld) [#/Vol] 4.24 10*6/uL Low 4.38-5.83 [facility] Comment on above: Performed By: #### T ACRO #### [facility] (DEFAULT) [address] [address] RBC Distribution 13.6 % Normal 10.9-14.3 [facility] Comment on above: Performed By: #### T ACRO #### [facility] (DEFAULT) [address] [place] [address] WBC (Bld) [#/Vol] 4.59 10*3/uL Normal 3.73-10.10 [facility] Comment on above: Performed By: #### T ACRO #### [facility] (DEFAULT) [address] [place] [address] Erythrocyte distribution width (RBC) [Ratio] 13.6 % 10.9 - 14.3 % [facility] Hematocrit (Bld) [Volume fraction] 36.1 % Low 39.6 - 48.8 % [facility] Hemoglobin (Bld) [Mass/Vol] 11.6 g/dL Low 13.4 - 16.8 g/dL [facility] Interpretation and review of laboratory results Abnormal [facility] MCH (RBC) [Entitic mass] 27.4 pg 26.1 - 33.3 pg [facility] MCHC (RBC) [Mass/Vol] 32.1 g/dL 31.9 - 36.5 g/dL [facility] MCV (RBC) [Entitic vol] 85.1 fL 79.0 - 94.5 fL [facility] Platelet mean volume (Bld) [Entitic vol] 9.5 fL 8.7 - 12.3 fL [facility] Platelets (Bld) [#/Vol] 182 10*3/uL 146 - 337 K/uL [facility] RBC (Bld) [#/Vol] 4.24 10*6/uL Low [facility] WBC (Bld) [#/Vol] 4.59 10*3/uL 3.73 - 10. 10 K/uL [facility] CHEM 7 (LYTES,BUN,CREA,GLUC) on 09-08-2023 Anion gap [Moles/Vol] 12 mmol/L Normal 7-17 [facility] Comment on above: Performed By: #### H EMOGC #### [facility] (DEFAULT) [address] [place] [address] Chloride [Moles/Vol] 113 mmol/L High 98-108 [facility] Comment on above: Performed By: #### H EMO #### [facility] (DEFAULT) [address] [address] CO2 [Moles/Vol] 21 mmol/L Normal 21-31 [facility] Comment on above: Performed By: #### H EMO #### [facility] (DEFAULT) [address] [address] Creatinine [Mass/Vol] 1.14 mg/dL Normal 0.70-1.30 [facility] Comment on above: Performed By: #### [facility] #### [facility] (DEFAULT) [address] [address] GFR/1.73 sq M.predicted among non-blacks MDRD (S/P/Bld) [Vol rate/Area] 77 mL/min/{1.73_m2} Normal >=60 [facility] Comment on above: Result Comment: Repo rted eGFR is based on the CKD-EPI 2020 equation using creatinine, age, and sex. Performed By: #### H EMO #### [facility] (DEFAULT) [address] [address] Glucose [Mass/Vol] 107 mg/dL High 70-99 [facility] Comment on above: Performed By: #### H EMO #### [facility] (DEFAULT) [address] [address] Osmolality [Osmolality] 296 mosm/kg Normal 278-305 [facility] Comment on above: Performed By: #### H EMO #### [facility] (DEFAULT) [address] [address] Potassium [Moles/Vol] 3.9 mmol/L Normal 3.5-5.0 [facility] Comment on above: Performed By: #### H EMOGC #### [facility] (DEFAULT) [address] [address] Sodium [Moles/Vol] 142 mmol/L Normal 135-145 [facility] Comment on above: Performed By: #### [facility] #### [facility] (DEFAULT) [address] [place] [address] Urea nitrogen [Mass/Vol] 11 mg/dL Normal 7-25 [facility] Comment on above: Performed By: #### H EMO #### [facility] (DEFAULT) [address] [place] [address] Urea nitrogen/Creatinine [Mass ratio] 10 mg/mg Normal [facility] Comment on above: Performed By: #### [facility] #### [facility] (DEFAULT) [address] [place] [address] Anion gap [Moles/Vol] 12 mmol/L 7 - 17 mmol/L [facility] Chloride [Moles/Vol] 113 mmol/L High 98 - 10 8 mmol/L [facility] CO2 [Moles/Vol] 21 mmol/L 21 - 31 mmol/L [facility] Creatinine [Mass/Vol] 1.14 mg/dL 0.70 - 1.30 mg/dL [facility] eGFR, CKD-EPI, Male 77 - PINF [facility] Glucose [Mass/Vol] 107 mg/dL High 70 - 99 mg/dL [facility] Osmolality Calc [Osmolality] 296 [facility] Potassium [Moles/Vol] 3.9 mmol/L 3.5 - 5.0 mmol/L [facility] Sodium [Moles/Vol] 142 mmol/L 135 - 145 mmol/L [facility] Urea nitrogen [Mass/Vol] 11 mg/dL 7 - 25 mg/dL [facility] Urea nitrogen/Creatinine [Mass ratio] 10 mg/mg [facility] HEPATIC FUNCTION PANELon Albumin [Mass/Vol] 2.9 g/dL Low 3.5-5.0 [facility] Comment on above: Performed By: #### [facility] #### [facility] (DEFAULT) [address] [place] [address] ALP [Catalytic activity/Vol] 133 U/L High 32-126 [facility] Comment on above: Performed By: #### H EMO #### [facility] (DEFAULT) [address] [place] [address] ALT [Catalytic activity/Vol] 23 U/L Normal 10-52 [facility] Comment on above: Performed By: #### H EMO #### [facility] (DEFAULT) [address] [place] [address] AST [Catalytic activity/Vol] 23 U/L Normal 10-39 [facility] Comment on above: Performed By: #### H EMO #### [facility] (DEFAULT) [address] [place] [address] Bilirubin [Mass/Vol] 0.8 mg/dL Normal <1.5 [facility] Comment on above: Performed By: #### H EMO #### [facility] (DEFAULT) [address] [place] [address] Bilirubin.indirect [Mass/Vol] 0.2 mg/dL Normal <0.3 [facility] Comment on above: Performed By: #### H EMO #### [facility] (DEFAULT) [address] [place] [address] Protein [Mass/Vol] 5.9 g/dL Low 6.4-8.3 [facility] Comment on above: Performed By: #### H EMO #### [facility] (DEFAULT) [address] [place] [address] Albumin [Mass/Vol] 2.9 g/dL Low 3.5 - 5.0 g/dL [facility] ALP [Catalytic activity/Vol] 133 U/L High 32 - 126 U/L [facility] ALT [Catalytic activity/Vol] 23 U/L 10 - 52 U/L [facility] AST [Catalytic activity/Vol] 23 U/L 10 - 39 U/L [facility] Bilirubin [Mass/Vol] 0.8 mg/dL NINF - 1.5 mg/dL [facility] Bilirubin.direct [Mass/Vol] 0.2 mg/dL NINF - 0.3 mg/dL [facility] Protein [Mass/Vol] 5.9 g/dL Low 6.4 - 8.3 g/dL [facility] MAGNESIUMon 09-08-2023 Magnesium [Mass/Vol] 1.8 mg/dL Normal 1.6-2.6 [facility] Comment on above: Performed By: #### [facility] #### [facility] (DEFAULT) [address] [place] [address] Interpretation and review of laboratory results Normal [facility] Magnesium [Mass/Vol] 1.8 mg/dL 1.6 - 2 .6 mg/dL [facility] No Panel Informationon 09-08 Interpretation and review of laboratory results Abnormal [facility] PHOSPHATE, INORGANICon 09-08 Interpretation and review of laboratory results Normal [facility] Phosphate [Mass/Vol] 4.1 mg/dL 2.2 - 4 .6 mg/dL [facility] Phosphorous 4.1 mg/dL Normal 2.2-4.6 [facility] Comment on above: Performed By: #### [facility] #### [facility] (DEFAULT) [address] [place] [address] TACROLIMUS LEVEL, TROUGH (MI E DRUG LEVEL)on 09-08-2023 Interpretation and review of laboratory results Normal [facility] Tacrolimus (Bld) [Mass/Vol] 8.5 ng/mL [facility] Tacrolimus, Trough 8.5 ng/mL Normal Bone Susana ow Transplant: 4.0-12.0, Therapeutic: 5.0-15.0 [facility] Comment on above: Order Comment: Pleas e draw at specified interval PRIOR to dose. Do not hold dose to wait for level. Specimens batched twice per day, (M-F) and once per day weekendsMethod performed is a chemiluminescent microparticle immunoasssay on the [employer] i2000.The range is based on experience at [facility] and users should be aware that target concentrations vary widely depending on concomitant therapy, time post-transplant, and desired degree of immunosuppression. Performed By: #### N ONGNNONFNA #### [facility] (DEFAULT) [address] [address] CBC,PLATELETSon 09-07-2023 Hematocrit (Bld) [Volume fraction] 37.1 % Low 39.6-48.8 [facility] Comment on above: Performed By: #### Vale UNDERWOOD #### [facility] (DEFAULT) [address] [address] Hemoglobin (Bld) [Mass/Vol] 11.9 g/dL Low 13.4-16.8 [facility] Comment on above: Performed By: #### Vale UNDERWOOD #### [facility] (DEFAULT) [address] [address] MCV (RBC) [Entitic vol] 86.5 fL Normal 79.0-94.5 [facility] Comment on above: Performed By: #### Vale UNDERWOOD #### [facility] (DEFAULT) [address] [address] Mean Cell Hgb 27.7 pg Normal 26.1-33.3 [facility] Comment on above: Performed By: #### Vale UNDERWOOD #### [facility] (DEFAULT) [address] [address] Mean Cell Hgb Conc 32.1 g/dL Normal 31.9-36.5 [facility] Comment on above: Performed By: #### Vale UNDERWOOD #### [facility] (DEFAULT) [address] [address] Platelet mean volume (Bld) [Entitic vol] 9.6 fL Normal 8.7-12.3 [facility] Comment on above: Performed By: #### G YASMINE #### [facility] (DEFAULT) [address] [place] [address] Platelets (Bld) [#/Vol] 176 10*3/uL Normal 146-337 [facility] Comment on above: Performed By: #### Vale UNDERWOOD #### [facility] (DEFAULT) [address] [place] [address] RBC (Bld) [#/Vol] 4.29 10*6/uL Low 4.38-5.83 [facility] Comment on above: Performed By: #### Vale UNDERWOOD #### [facility] (DEFAULT) [address] [place] [address] RBC Distribution 13.5 % Normal 10.9-14.3 [facility] Comment on above: Performed By: #### Vale UNDERWOOD #### [facility] (DEFAULT) [address] [place] [address] WBC (Bld) [#/Vol] 4.10 10*3/uL Normal 3.73-10.10 [facility] Comment on above: Performed By: #### Vale UNDERWOOD #### [facility] (DEFAULT) [address] [place] [address] Erythrocyte distribution width (RBC) [Ratio] 13.5 % 10.9 - 14.3 % [facility] Hematocrit (Bld) [Volume fraction] 37.1 % Low 39.6 - 48.8 % [facility] Hemoglobin (Bld) [Mass/Vol] 11.9 g/dL Low 13.4 - 16.8 g/dL [facility] Interpretation and review of laboratory results Abnormal [facility] MCH (RBC) [Entitic mass] 27.7 pg 26.1 - 33.3 pg [facility] MCHC (RBC) [Mass/Vol] 32.1 g/dL 31.9 - 36.5 g/dL [facility] MCV (RBC) [Entitic vol] 86.5 fL 79.0 - 94.5 fL [facility] Platelet mean volume (Bld) [Entitic vol] 9.6 fL 8.7 - 12.3 fL [facility] Platelets (Bld) [#/Vol] 176 10*3/uL 146 - 337 K/uL [facility] RBC (Bld) [#/Vol] 4.29 10*6/uL Low [facility] WBC (Bld) [#/Vol] 4.10 10*3/uL 3.73 - 10. 10 K/uL [facility] CHEM 7 (LYTES,BUN,CREA,GLUC) on 09-07-2023 Anion gap [Moles/Vol] 13 mmol/L Normal 7-17 [facility] Comment on above: Performed By: #### Y PNRP #### [facility] (DEFAULT) [address] [place] [address] Chloride [Moles/Vol] 113 mmol/L High 98-108 [facility] Comment on above: Performed By: #### Y PNRP #### [facility] (DEFAULT) [address] [place] [address] CO2 [Moles/Vol] 19 mmol/L Low 21-31 [facility] Comment on above: Performed By: #### Y PNRP #### [facility] (DEFAULT) [address] [place] [address] Creatinine [Mass/Vol] 1.22 mg/dL Normal 0.70-1.30 [facility] Comment on above: Performed By: #### Y PNRP #### [facility] (DEFAULT) [address] [place] [address] GFR/1.73 sq M.predicted among non-blacks MDRD (S/P/Bld) [Vol rate/Area] 71 mL/min/{1.73_m2} Normal >=60 [facility] Comment on above: Result Comment: Repo rted eGFR is based on the CKD-EPI 2020 equation using creatinine, age, and sex. Performed By: #### Y PNRP #### [facility] (DEFAULT) [address] [place] [address] Glucose [Mass/Vol] 107 mg/dL High 70-99 [facility] Comment on above: Performed By: #### Y PNRP #### [facility] (DEFAULT) [address] [place] [address] Osmolality [Osmolality] 295 mosm/kg Normal 278-305 [facility] Comment on above: Performed By: #### Y PNRP #### [facility] (DEFAULT) [address] [place] [address] Potassium [Moles/Vol] 3.9 mmol/L Normal 3.5-5.0 [facility] Comment on above: Performed By: #### Y PNRP #### [facility] (DEFAULT) [address] [place] [address] Sodium [Moles/Vol] 141 mmol/L Normal 135-145 [facility] Comment on above: Performed By: #### Y PNRP #### [facility] (DEFAULT) [address] [place] [address] Urea nitrogen [Mass/Vol] 13 mg/dL Normal 7-25 [facility] Comment on above: Performed By: #### Y PNRP #### [facility] (DEFAULT) [address] [place] [address] Urea nitrogen/Creatinine [Mass ratio] 11 mg/mg Normal [facility] Comment on above: Performed By: #### Y PNRP #### [facility] (DEFAULT) [address] [place] [address] Anion gap [Moles/Vol] 13 mmol/L 7 - 17 mmol/L [facility] Chloride [Moles/Vol] 113 mmol/L High 98 - 10 8 mmol/L [facility] CO2 [Moles/Vol] 19 mmol/L Low 21 - 31 mmol/L [facility] Creatinine [Mass/Vol] 1.22 mg/dL 0.70 - 1.30 mg/dL [facility] eGFR, CKD-EPI, Male 71 - PINF [facility] Glucose [Mass/Vol] 107 mg/dL High 70 - 99 mg/dL [facility] Osmolality Calc [Osmolality] 295 [facility] Potassium [Moles/Vol] 3.9 mmol/L 3.5 - 5.0 mmol/L [facility] Sodium [Moles/Vol] 141 mmol/L 135 - 145 mmol/L [facility] Urea nitrogen [Mass/Vol] 13 mg/dL 7 - 25 mg/dL [facility] Urea nitrogen/Creatinine [Mass ratio] 11 mg/mg [facility] HEPATIC FUNCTION PANELon Albumin [Mass/Vol] 2.9 g/dL Low 3.5-5.0 [facility] Comment on above: Performed By: #### Y PNRP #### [facility] (DEFAULT) [address] [place] [address] ALP [Catalytic activity/Vol] 111 U/L Normal 32-126 [facility] Comment on above: Performed By: #### Y PNRP #### [facility] (DEFAULT) [address] [address] ALT [Catalytic activity/Vol] 18 U/L Normal 10-52 [facility] Comment on above: Performed By: #### Y PNRP #### [facility] (DEFAULT) [address] [place] [address] AST [Catalytic activity/Vol] 23 U/L Normal 10-39 [facility] Comment on above: Performed By: #### Y PNRP #### [facility] (DEFAULT) [address] [place] [address] Bilirubin [Mass/Vol] 0.8 mg/dL Normal <1.5 [facility] Comment on above: Performed By: #### Y PNRP #### [facility] (DEFAULT) [address] [place] [address] Bilirubin.indirect [Mass/Vol] 0.3 mg/dL High <0.3 [facility] Comment on above: Performed By: #### Y PNRP #### [facility] (DEFAULT) [address] [place] [address] Protein [Mass/Vol] 6.0 g/dL Low 6.4-8.3 [facility] Comment on above: Performed By: #### Y PNRP #### [facility] (DEFAULT) [address] [place] [address] Albumin [Mass/Vol] 2.9 g/dL Low 3.5 - 5.0 g/dL [facility] ALP [Catalytic activity/Vol] 111 U/L 32 - 126 U/L [facility] ALT [Catalytic activity/Vol] 18 U/L 10 - 52 U/L [facility] AST [Catalytic activity/Vol] 23 U/L 10 - 39 U/L [facility] Bilirubin [Mass/Vol] 0.8 mg/dL NINF - 1.5 mg/dL [facility] Bilirubin.direct [Mass/Vol] 0.3 mg/dL High NINF - 0.3 mg/dL [facility] Protein [Mass/Vol] 6.0 g/dL Low 6.4 - 8.3 g/dL [facility] MAGNESIUMon 09-07-2023 Magnesium [Mass/Vol] 1.7 mg/dL Normal 1.6-2.6 [facility] Comment on above: Performed By: #### Y PNRP #### [facility] (DEFAULT) [address] [place] [address] Interpretation and review of laboratory results Normal [facility] Magnesium [Mass/Vol] 1.7 mg/dL 1.6 - 2 .6 mg/dL [facility] No Panel Informationon 09-07 Interpretation and review of laboratory results Abnormal [facility] PHOSPHATE, INORGANICon 09-07 Phosphorous 4.4 mg/dL Normal 2.2-4.6 [facility] Comment on above: Performed By: #### Y PNRP #### [facility] (DEFAULT) [address] [address] Interpretation and review of laboratory results Normal [facility] Phosphate [Mass/Vol] 4.4 mg/dL 2.2 - 4 .6 mg/dL [facility] TACROLIMUS LEVEL, TROUGH (MI E DRUG LEVEL)Ordered By: Elizabeth Maldonado on 09-07-2023 Interpretation and review of laboratory results Normal [facility] Tacrolimus (Bld) [Mass/Vol] 7.8 ng/mL [facility] TACROLIMUS LEVEL, TROUGH (MI E DRUG LEVEL)on 09-07-2023 Tacrolimus, Trough 7.8 ng/mL Normal Bone Susana ow Transplant: 4.0-12.0, Therapeutic: 5.0-15.0 [facility] Comment on above: Order Comment: Pleas e draw at specified interval PRIOR to dose. Do not hold dose to wait for level. Specimens batched twice per day, (M-F) and once per day weekends Method performed is a chemiluminescent microparticle immunoasssay on the [employer] i2000. The range is based on experience at [facility] and users should be aware that target concentrations vary widely depending on concomitant therapy, time post-transplant, and desired degree of immunosuppression. Performed By: #### T ACRO #### [facility] (DEFAULT) [address] [place] [address] CBC,PLATELETSon 09-06-2023 Hematocrit (Bld) [Volume fraction] 38.4 % Low 39.6-48.8 [facility] Comment on above: Performed By: #### Y PNRP #### [facility] (DEFAULT) [address] [address] Hemoglobin (Bld) [Mass/Vol] 11.9 g/dL Low 13.4-16.8 [facility] Comment on above: Performed By: #### Y PNRP #### [facility] (DEFAULT) [address] [address] MCV (RBC) [Entitic vol] 85.9 fL Normal 79.0-94.5 [facility] Comment on above: Performed By: #### Y PNRP #### [facility] (DEFAULT) [address] [place] [address] Mean Cell Hgb 26.6 pg Normal 26.1-33.3 [facility] Comment on above: Performed By: #### Y PNRP #### [facility] (DEFAULT) [address] [place] [address] Mean Cell Hgb Conc 31.0 g/dL Low 31.9-36.5 [facility] Comment on above: Performed By: #### Y PNRP #### [facility] (DEFAULT) [address] [place] [address] Platelet mean volume (Bld) [Entitic vol] 9.7 fL Normal 8.7-12.3 [facility] Comment on above: Performed By: #### Y PNRP #### [facility] (DEFAULT) [address] [place] [address] Platelets (Bld) [#/Vol] 181 10*3/uL Normal 146-337 [facility] [facility] Comment on above: Performed By: #### Y PNRP #### [facility] (DEFAULT) [address] [place] [address] [phone] RBC (Bld) [#/Vol] 4.47 10*6/uL Normal 4.38-5.83 [facility] Comment on above: Performed By: #### Y PNRP #### [facility] (DEFAULT) [address] [place] [address] 56893 RBC Distribution 13.4 % Normal 10.9-14.3 [facility] Comment on above: Performed By: #### Y PNRP #### [facility] (DEFAULT) [address] [place] [address] 70666 WBC (Bld) [#/Vol] 4.41 10*3/uL Normal 3.73-10.10 [facility] Comment on above: Performed By: #### Y PNRP #### [facility] (DEFAULT) [address] [place] [address] Erythrocyte distribution width (RBC) [Ratio] 13.4 % 10.9 - 14.3 % [facility] Hematocrit (Bld) [Volume fraction] 38.4 % Low 39.6 - 48.8 % [facility] Hemoglobin (Bld) [Mass/Vol] 11.9 g/dL Low 13.4 - 16.8 g/dL [facility] Interpretation and review of laboratory results Abnormal [facility] MCH (RBC) [Entitic mass] 26.6 pg 26.1 - 33.3 pg [facility] MCHC (RBC) [Mass/Vol] 31.0 g/dL Low 31.9 - 36.5 g/dL [facility] MCV (RBC) [Entitic vol] 85.9 fL 79.0 - 94.5 fL [facility] Platelet mean volume (Bld) [Entitic vol] 9.7 fL 8.7 - 12.3 fL [facility] Platelets (Bld) [#/Vol] 181 10*3/uL 146 - 337 K/uL [facility] RBC (Bld) [#/Vol] 4.47 10*6/uL [facility] WBC (Bld) [#/Vol] 4.41 10*3/uL 3.73 - 10. 10 K/uL [facility] CHEM 7 (LYTES,BUN,CREA,GLUC) on 09-06-2023 Anion gap [Moles/Vol] 14 mmol/L 7 - 17 mmol/L [facility] Chloride [Moles/Vol] 109 mmol/L High 98 - 10 8 mmol/L [facility] CO2 [Moles/Vol] 19 mmol/L Low 21 - 31 mmol/L [facility] Creatinine [Mass/Vol] 1.26 mg/dL 0.70 - 1.30 mg/dL [facility] eGFR, CKD-EPI, Male 69 - PINF [facility] Glucose [Mass/Vol] 114 mg/dL High 70 - 99 mg/dL [facility] Osmolality Calc [Osmolality] 291 [facility] Potassium [Moles/Vol] 4.1 mmol/L 3.5 - 5.0 mmol/L [facility] Sodium [Moles/Vol] 138 mmol/L 135 - 145 mmol/L [facility] Urea nitrogen [Mass/Vol] 16 mg/dL 7 - 25 mg/dL [facility] Urea nitrogen/Creatinine [Mass ratio] 13 mg/mg [facility] Anion gap [Moles/Vol] 14 mmol/L Normal 7-17 [facility] Comment on above: Performed By: #### L EGN #### [facility] (DEFAULT) [address] [place] [address] Chloride [Moles/Vol] 109 mmol/L High 98-108 [facility] Comment on above: Performed By: #### L EGN #### [facility] (DEFAULT) [address] [place] [address] CO2 [Moles/Vol] 19 mmol/L Low 21-31 [facility] Comment on above: Performed By: #### L EGN #### [facility] (DEFAULT) [address] [place] [address] 24827 Creatinine [Mass/Vol] 1.26 mg/dL Normal 0.70-1.30 [facility] Comment on above: Performed By: #### L EGN #### [facility] (DEFAULT) [address] [place] [address] 97711 GFR/1.73 sq M.predicted among non-blacks MDRD (S/P/Bld) [Vol rate/Area] 69 mL/min/{1.73_m2} Normal >=60 [facility] Comment on above: Result Comment: Repo rted eGFR is based on the CKD-EPI 2020 equation using creatinine, age, and sex. Performed By: #### L EGN #### [facility] (DEFAULT) [address] [place] [address] [phone] Glucose [Mass/Vol] 114 mg/dL High 70-99 [facility] Comment on above: Performed By: #### L EGN #### [facility] (DEFAULT) [address] [place] [address] Osmolality [Osmolality] 291 mosm/kg Normal 278-305 [facility] Comment on above: Performed By: #### L EGN #### [facility] (DEFAULT) [address] [place] [address] 80697 Potassium [Moles/Vol] 4.1 mmol/L Normal 3.5-5.0 [facility] Comment on above: Performed By: #### L EGN #### [facility] (DEFAULT) [address] [place] [address] 27110 Sodium [Moles/Vol] 138 mmol/L Normal 135-145 [facility] Comment on above: Performed By: #### L EGN #### [facility] (DEFAULT) [address] [place] [address] 37418 Urea nitrogen [Mass/Vol] 16 mg/dL Normal 7-25 [facility] Comment on above: Performed By: #### L EGN #### [facility] (DEFAULT) [address] [place] [address] 99472 Urea nitrogen/Creatinine [Mass ratio] 13 mg/mg Normal [facility] Comment on above: Performed By: #### L EGN #### [facility] (DEFAULT) [address] [place] [address] 15594 HEPATIC FUNCTION PANELon Albumin [Mass/Vol] 3.0 g/dL Low 3.5 - 5.0 g/dL [facility] ALP [Catalytic activity/Vol] 115 U/L 32 - 126 U/L [facility] ALT [Catalytic activity/Vol] 25 U/L 10 - 52 U/L [facility] AST [Catalytic activity/Vol] 31 U/L 10 - 39 U/L [facility] Bilirubin [Mass/Vol] 1.0 mg/dL NINF - 1.5 mg/dL [facility] Bilirubin.direct [Mass/Vol] 0.3 mg/dL High NINF - 0.3 mg/dL [facility] Protein [Mass/Vol] 6.3 g/dL Low 6.4 - 8.3 g/dL [facility] Albumin [Mass/Vol] 3.0 g/dL Low 3.5-5.0 [facility] Comment on above: Performed By: #### L EGN #### [facility] (DEFAULT) [address] [place] [address] 64437 ALP [Catalytic activity/Vol] 115 U/L Normal 32-126 [facility] Comment on above: Performed By: #### L EGN #### [facility] (DEFAULT) [address] [place] [address] 44735 ALT [Catalytic activity/Vol] 25 U/L Normal 10-52 [facility] Comment on above: Performed By: #### L EGN #### [facility] (DEFAULT) [address] [place] [address] 61556 AST [Catalytic activity/Vol] 31 U/L Normal 10-39 [facility] Comment on above: Performed By: #### L EGN #### [facility] (DEFAULT) [address] [place] [address] 50820 Bilirubin [Mass/Vol] 1.0 mg/dL Normal <1.5 [facility] Comment on above: Performed By: #### L EGN #### [facility] (DEFAULT) [address] [place] [address] 98756 Bilirubin.indirect [Mass/Vol] 0.3 mg/dL High <0.3 [facility] Comment on above: Performed By: #### L EGN #### [facility] (DEFAULT) [address] [place] [address] 04405 Protein [Mass/Vol] 6.3 g/dL Low 6.4-8.3 [facility] Comment on above: Performed By: #### L EGN #### [facility] (DEFAULT) [address] [place] [address] MAGNESIUMon 09-06-2023 Interpretation and review of laboratory results Normal [facility] Magnesium [Mass/Vol] 2.0 mg/dL 1.6 - 2 .6 mg/dL [facility] Magnesium [Mass/Vol] 2.0 mg/dL Normal 1.6-2.6 [facility] Comment on above: Performed By: #### L EGN #### [facility] (DEFAULT) [address] [place] [address] 20570 No Panel Informationon 09-06 Interpretation and review of laboratory results Abnormal [facility] TACROLIMUS LEVEL, TROUGH (MI E DRUG LEVEL)on 09-06-2023 Interpretation and review of laboratory results Normal [facility] Tacrolimus (Bld) [Mass/Vol] 6.7 ng/mL [facility] Tacrolimus, Trough 6.7 ng/mL Normal Bone Susana ow Transplant: 4.0-12.0, Therapeutic: 5.0-15.0 [facility] Comment on above: Order Comment: Pleas e draw at specified interval PRIOR to dose. Do not hold dose to wait for level. Specimens batched twice per day, (M-) and once per day weekends Method performed is a chemiluminescent microparticle immunoasssay on the [employer] i2000. The range is based on experience at [facility] and users should be aware that target concentrations vary widely depending on concomitant therapy, time post-transplant, and desired degree of immunosuppression. Performed By: #### T ACRO #### [facility] (DEFAULT) [address] [place] [address] CBC,PLATELETSon 09-05-2023 Hematocrit (Bld) [Volume fraction] 35.6 % Low 39.6-48.8 [facility] Comment on above: Performed By: #### T ACRO #### [facility] (DEFAULT) [address] [place] [address] 60970 Hemoglobin (Bld) [Mass/Vol] 11.4 g/dL Low 13.4-16.8 [facility] Comment on above: Performed By: #### T ACRO #### [facility] (DEFAULT) [address] [place] [address] 83186 MCV (RBC) [Entitic vol] 86.0 fL Normal 79.0-94.5 [facility] Comment on above: Performed By: #### T ACRO #### [facility] (DEFAULT) [address] [address] Mean Cell Hgb 27.5 pg Normal 26.1-33.3 [facility] Comment on above: Performed By: #### T ACRO #### [facility] (DEFAULT) [address] [place] [address] 63302 Mean Cell Hgb Conc 32.0 g/dL Normal 31.9-36.5 [facility] Comment on above: Performed By: #### T ACRO #### [facility] (DEFAULT) [address] [place] [address] 22753 Platelet mean volume (Bld) [Entitic vol] 10.0 fL Normal 8.7-12.3 [facility] Comment on above: Performed By: #### T ACRO #### [facility] (DEFAULT) [address] [address] Platelets (Bld) [#/Vol] 170 10*3/uL Normal 146-337 [facility] Comment on above: Performed By: #### T ACRO #### [facility] (DEFAULT) [address] [address] RBC (Bld) [#/Vol] 4.14 10*6/uL Low 4.38-5.83 [facility] Comment on above: Performed By: #### T ACRO #### [facility] (DEFAULT) [address] [place] [address] [place] [address] RBC Distribution 13.5 % Normal 10.9-14.3 [facility] Comment on above: Performed By: #### T ACRO #### [facility] (DEFAULT) [address] [place] [address] WBC (Bld) [#/Vol] 4.24 10*3/uL Normal 3.73-10.10 [facility] Comment on above: Performed By: #### T ACRO #### [facility] (DEFAULT) [address] [place] [address] 76727 Erythrocyte distribution width (RBC) [Ratio] 13.5 % 10.9 - 14.3 % [facility] Hematocrit (Bld) [Volume fraction] 35.6 % Low 39.6 - 48.8 % [facility] Hemoglobin (Bld) [Mass/Vol] 11.4 g/dL Low 13.4 - 16.8 g/dL [facility] Interpretation and review of laboratory results Abnormal [facility] MCH (RBC) [Entitic mass] 27.5 pg 26.1 - 33.3 pg [facility] MCHC (RBC) [Mass/Vol] 32.0 g/dL 31.9 - 36.5 g/dL [facility] MCV (RBC) [Entitic vol] 86.0 fL 79.0 - 94.5 fL [facility] Platelet mean volume (Bld) [Entitic vol] 10.0 fL 8.7 - 12.3 fL [facility] Platelets (Bld) [#/Vol] 170 10*3/uL 146 - 337 K/uL [facility] RBC (Bld) [#/Vol] 4.14 10*6/uL Low [facility] WBC (Bld) [#/Vol] 4.24 10*3/uL 3.73 - 10. 10 K/uL [facility] CHEM 7 (LYTES,BUN,CREA,GLUC) on 09-05-2023 Anion gap [Moles/Vol] 12 mmol/L Normal 7-17 [facility] Comment on above: Performed By: #### L EGN #### [facility] (DEFAULT) [address] [place] [address] 58990 Chloride [Moles/Vol] 107 mmol/L Normal 98-108 [facility] Comment on above: Performed By: #### L EGN #### [facility] (DEFAULT) [address] [place] [address] 01315 CO2 [Moles/Vol] 20 mmol/L Low 21-31 [facility] Comment on above: Performed By: #### L EGN #### [facility] (DEFAULT) [address] [place] [address] 69245 Creatinine [Mass/Vol] 1.43 mg/dL High 0.70-1.30 [facility] Comment on above: Performed By: #### L EGN #### [facility] (DEFAULT) [address] [place] [address] 04570 GFR/1.73 sq M.predicted among non-blacks MDRD (S/P/Bld) [Vol rate/Area] 59 mL/min/{1.73_m2} Low >=60 [facility] Comment on above: Result Comment: Repo rted eGFR is based on the CKD-EPI 2020 equation using creatinine, age, and sex. Performed By: #### L EGN #### [facility] (DEFAULT) [address] [place] [address] 77418 Glucose [Mass/Vol] 111 mg/dL High 70-99 [facility] Comment on above: Performed By: #### L EGN #### [facility] (DEFAULT) [address] [place] [address] 33694 Osmolality [Osmolality] 286 mosm/kg Normal 278-305 [facility] Comment on above: Performed By: #### L EGN #### [facility] (DEFAULT) [address] [place] [address] 81603 Potassium [Moles/Vol] 4.2 mmol/L Normal 3.5-5.0 [facility] Comment on above: Performed By: #### L EGN #### [facility] (DEFAULT) [address] [place] [address] Sodium [Moles/Vol] 135 mmol/L Normal 135-145 [facility] Comment on above: Performed By: #### L EGN #### [facility] (DEFAULT) [address] [place] [address] Urea nitrogen [Mass/Vol] 18 mg/dL Normal 7-25 [facility] Comment on above: Performed By: #### L EGN #### [facility] (DEFAULT) [address] [place] [address] Urea nitrogen/Creatinine [Mass ratio] 13 mg/mg Normal [facility] Comment on above: Performed By: #### L EGN #### [facility] (DEFAULT) [address] [place] [address] 04926 Anion gap [Moles/Vol] 12 mmol/L 7 - 17 mmol/L [facility] Chloride [Moles/Vol] 107 mmol/L 98 - 10 8 mmol/L [facility] CO2 [Moles/Vol] 20 mmol/L Low 21 - 31 mmol/L [facility] Creatinine [Mass/Vol] 1.43 mg/dL High 0.70 - 1.30 mg/dL [facility] eGFR, CKD-EPI, Male 60 Low - PINF [facility] Glucose [Mass/Vol] 111 mg/dL High 70 - 99 mg/dL [facility] Osmolality Calc [Osmolality] 286 [facility] Potassium [Moles/Vol] 4.2 mmol/L 3.5 - 5.0 mmol/L [facility] Sodium [Moles/Vol] 135 mmol/L 135 - 145 mmol/L [facility] Urea nitrogen [Mass/Vol] 18 mg/dL 7 - 25 mg[facility] Urea nitrogen/Creatinine [Mass ratio] 13 mg[facility] CONTINUOUS CARDIAC MONITORIN G STRIPon 09-05-2023 [facility] HEPATIC FUNCTION PANELon Albumin [Mass/Vol] 2.8 g/dL Low 3.5-5.0 [facility] Comment on above: Performed By: #### L EGN #### [facility] (DEFAULT) [address] [place] [address] ALP [Catalytic activity/Vol] 103 U/L Normal 32-126 [facility] Comment on above: Performed By: #### L EGN #### [facility] (DEFAULT) [address] [place] [address] ALT [Catalytic activity/Vol] 26 U/L Normal 10-52 [facility] Comment on above: Performed By: #### L EGN #### [facility] (DEFAULT) [address] [place] [address] AST [Catalytic activity/Vol] 38 U/L Normal 10-39 [facility] Comment on above: Performed By: #### L EGN #### [facility] (DEFAULT) [address] [place] [address] 40534 Bilirubin [Mass/Vol] 0.9 mg/dL Normal <1.5 [facility] Comment on above: Performed By: #### L EGN #### [facility] (DEFAULT) [address] [place] [address] Bilirubin.indirect [Mass/Vol] 0.1 mg/dL Normal <0.3 [facility] Comment on above: Performed By: #### L EGN #### [facility] (DEFAULT) [address] [place] [address] Protein [Mass/Vol] 6.1 g/dL Low 6.4-8.3 [facility] Comment on above: Performed By: #### L EGN #### [facility] (DEFAULT) [address] [place] [address] Albumin [Mass/Vol] 2.8 g/dL Low 3.5 - 5.0 g/dL [facility] ALP [Catalytic activity/Vol] 103 U/L 32 - 126 U/L [facility] ALT [Catalytic activity/Vol] 26 U/L 10 - 52 U/L [facility] AST [Catalytic activity/Vol] 38 U/L 10 - 39 U/L [facility] Bilirubin [Mass/Vol] 0.9 mg/dL NINF - 1.5 mg/dL [facility] Bilirubin.direct [Mass/Vol] 0.1 mg/dL NINF - 0.3 mg/dL [facility] Protein [Mass/Vol] 6.1 g/dL Low 6.4 - 8.3 g/dL [facility] HISTOPLASMA ANTIGEN, FLUIDon 09-05-2023 FH SOURCE BAL RML [facility] Histo FLD interpretation Negative [facility] Histoplasma Antigen, FLUID Not detected ng/mL [facility] HISTOPLASMA CAPSULATUM/BLAST OMYCES SPECIES,PCR FLUIDon 09-05-2023 HISTO/BLASTO RESULT Negative Not Applicable [facility] Specimen source Nom (Unsp spec) BAL RML [facility] IMMUNOPHENOTYPING, TISSUE/FL UIDon 09-05-2023 BKR DX CODE Use Ordering [facility] Flow Interpretation See Comment [facility] Flow Interpreted by: Yossi Perla MD, PhD [facility] MAGNESIUMon 09-05-2023 Magnesium [Mass/Vol] 1.7 mg/dL Normal 1.6-2.6 [facility] Comment on above: Performed By: #### L EGN #### [facility] (DEFAULT) [address] [place] [address] Interpretation and review of laboratory results Normal [facility] Magnesium [Mass/Vol] 1.7 mg/dL 1.6 - 2 .6 mg/dL [facility] No Panel Informationon 09-05 Interpretation and review of laboratory results Abnormal [facility] TACROLIMUS LEVEL, TROUGH (MI E DRUG LEVEL)Ordered By: Raymundo Mehta on 09-05-2023 Interpretation and review of laboratory results Normal [facility] Tacrolimus (Bld) [Mass/Vol] 5.3 ng/mL [facility] TACROLIMUS LEVEL, TROUGH (MI E DRUG LEVEL)on 09-05-2023 Tacrolimus, Trough 5.3 ng/mL Normal Bone Susana ow Transplant: 4.0-12.0, Therapeutic: 5.0-15.0 [facility] Comment on above: Order Comment: Pleas e draw at specified interval PRIOR to dose. Do not hold dose to wait for level. Specimens batched twice per day, (M-F) and once per day weekendsMethod performed is a chemiluminescent microparticle immunoasssay on the [employer] i2000.The range is based on experience at [facility] and users should be aware that target concentrations vary widely depending on concomitant therapy, time post-transplant, and desired degree of immunosuppression. Performed By: #### Y PNRP #### [facility] (DEFAULT) [address] [address] ARTERIAL BLOOD GAS (FULL PUENTE EL)on 09-04-2023 Base Excess -1.2 mmol/L Normal -3.0-3.0 [facility] Comment on above: Performed By: #### G YASMINE #### [facility] (DEFAULT) [address] [address] Carboxyhemoglobin 0.7 % Normal <=1.5 [facility] Comment on above: Performed By: #### G YASMINE #### [facility] (DEFAULT) [address] [address] Glucose [Mass/Vol] 159 mg/dL High 70-99 [facility] Comment on above: Performed By: #### G YASMINE #### [facility] (DEFAULT) [address] [place] [address]4838 HCO3 (Bld) [Moles/Vol] 22 mmol/L Normal 22-28 [facility] Comment on above: Performed By: #### Vale UNDERWOOD #### [facility] (DEFAULT) [address] [place] [address] 26954 Hematocrit (Bld) [Volume fraction] 38.0 % Low 40.2-50.4 [facility] Comment on above: Performed By: #### Vale UNDERWOOD #### [facility] (DEFAULT) [address] [place] [address] 9[address]00 Hemoglobin (Bld) [Mass/Vol] 12.6 g/dL Low 13.4-16.8 [facility] Comment on above: Performed By: #### Vale UNDERWOOD #### [facility] (DEFAULT) [address] [place] [address]161 Ionized Calcium, Whole Blood 4.79 mg/dL Normal 4.60-5.30 [facility] Comment on above: Performed By: ###Walter UNDERWOOD #### [facility] (DEFAULT) [address] [place] [address] 73381 Lactate, Whole Blood 2.0 mmol/L High 0.5-1.6 [facility] Comment on above: Performed By: ###Walter UNDERWOOD #### [facility] (DEFAULT) [address] [place] [address] 29679 Methemoglobin 0.0 % Normal <=1.5 [facility] Comment on above: Performed By: #### Vale UNDERWOOD #### [facility] (DEFAULT) [address] [place] [address] 66765 Oxyhemoglobin 91 % Low 94-98 [facility] Comment on above: Performed By: #### Vale UNDERWOOD #### [facility] (DEFAULT) [address] [place] [address] 69601 pCO2 30 mm Hg Low 32-48 [facility] Comment on above: Performed By: #### Vale UNDERWOOD #### [facility] (DEFAULT) [address] [place] [address] 78396 pH (Bld) 7.48 [pH] High 7.35-7.45 [facility] Comment on above: Performed By: #### Vale UNDERWOOD #### [facility] (DEFAULT) [address] [place] [address] 38001 pO2 62 mm Hg Low 83-108 [facility] Comment on above: Performed By: #### Vale UNDERWOOD #### [facility] (DEFAULT) [address] [place] [address] 23161 Potassium [Moles/Vol] 4.2 mmol/L Normal 3.5-5.0 [facility] Comment on above: Performed By: #### Vale UNDERWOOD #### [facility] (DEFAULT) [address] [place] [address] 94109 sO2 92 % Low 94-98 [facility] Comment on above: Performed By: #### Vale UNDERWOOD #### [facility] (DEFAULT) [address] [place] [address] 68819 Sodium [Moles/Vol] 130 mmol/L Low 135-145 [facility] Comment on above: Performed By: #### Vale UNDERWOOD #### [facility] (DEFAULT) [address] [place] [address] 48760 Specimen type Nom (Spec) Arterial Normal [facility] Comment on above: Performed By: ###Walter UNDERWOOD #### [facility] (DEFAULT) [address] [place] [address] 45904 Base excess Calc (Bld) [Moles/Vol] -1.2000 mmol/L -3.0 - 3.0 mmol/L [facility] Calcium.ionized (Bld) [Mass/Vol] 4.79 mg/dL 4.60 - 5.30 mg/dL [facility] Carboxyhemoglobin (Bld) [Mass fraction] 0.7 % NINF - 1.5 % [facility] CO2 (Bld) [Partial pressure] 30 mm[Hg] Low [facility] Glucose [Mass/Vol] 159 mg/dL High 70 - 99 mg/dL [facility] HCO3 (Bld) [Moles/Vol] 22 mmol/L 22 - 28 mmol/L [facility] Hematocrit (Bld) [Volume fraction] 38.0 % Low 40.2 - 50.4 % [facility] Hemoglobin (Bld) [Mass/Vol] 12.6 g/dL Low 13.4 - 16.8 g/dL [facility] Interpretation and review of laboratory results Abnormal [facility] Lactate [Moles/Vol] 2.0 mmol/L High 0.5 - 1. 6 mmol/L [facility] Methemoglobin (Bld) [Mass fraction] 0.0 % NINF - 1.5 % [facility] Oxygen (Bld) [Partial pressure] 62 mm[Hg] Low [facility] Oxygen saturation in Blood 92 % Low 94 - 98 % [facility] Oxyhemoglobin 91 % Low 94 - 98 % [facility] pH (Bld) 7.48 [pH] High 7.35 - 7.45 [facility] Potassium [Moles/Vol] 4.2 mmol/L 3.5 - 5.0 mmol/L [facility] Sodium [Moles/Vol] 130 mmol/L Low 135 - 145 mmol/L [facility] Specimen source Nom (Unsp spec) Arterial [facility] Bacteria identified Respirat ory culture Nom (Unsp spec)on 09-04-2023 Bacteria identified Cx Nom (Unsp spec) NO GROWTH DAY 2 OF 2 [facility] Microscopic observation Other stain Nom (Unsp spec) Cytocentrifuge preparation [facility] Microscopic observation Other stain Nom (Unsp spec) Neutrophils, Rare [facility] Microscopic observation Other stain Nom (Unsp spec) Red Blood Cells Present [facility] Microscopic observation Other stain Nom (Unsp spec) No organisms seen [facility] Bacteria identified Respirat ory culture Nom (Unsp spec)Ordered By: Jose Salgado on 09-04-2023 Bacteria identified Cx Nom (Unsp spec) NO GROWTH DAY 2 OF 2 [facility] Microscopic observation Other stain Nom (Unsp spec) Cytocentrifuge preparation [facility] Microscopic observation Other stain Nom (Unsp spec) Neutrophils, Moderate [facility] Microscopic observation Other stain Nom (Unsp spec) Red Blood Cells Present [facility] Microscopic observation Other stain Nom (Unsp spec) No organisms seen [facility] CBC,PLATELETSon 09-04-2023 Hematocrit (Bld) [Volume fraction] 38.7 % Low 39.6-48.8 [facility] Comment on above: Performed By: #### N ONGNNONFNA #### [facility] (DEFAULT) [address] [place] [address] 74483 Hemoglobin (Bld) [Mass/Vol] 12.3 g/dL Low 13.4-16.8 [facility] Comment on above: Performed By: #### N ONGNNONFNA #### [facility] (DEFAULT) [address] [place] [address] 32587 MCV (RBC) [Entitic vol] 87.8 fL Normal 79.0-94.5 [facility] Comment on above: Performed By: #### N ONGNNONFNA #### [facility] (DEFAULT) [address] [place] [address] 97667 Mean Cell Hgb 27.9 pg Normal 26.1-33.3 [facility] Comment on above: Performed By: #### N ONGNNONFNA #### [facility] (DEFAULT) [address] [place] [address] 48454 Mean Cell Hgb Conc 31.8 g/dL Low 31.9-36.5 [facility] Comment on above: Performed By: #### N ONGNNONFNA #### [facility] (DEFAULT) [address] [place] [address] 59337 Platelet mean volume (Bld) [Entitic vol] 9.8 fL Normal 8.7-12.3 [facility] Comment on above: Performed By: #### N ONGNNONFNA #### [facility] (DEFAULT) [address] [place] [address] 32952 Platelets (Bld) [#/Vol] 173 10*3/uL Normal 146-337 [facility] Comment on above: Performed By: #### N ONGNNONFNA #### [facility] (DEFAULT) [address] [place] [address] 79954 RBC (Bld) [#/Vol] 4.41 10*6/uL Normal 4.38-5.83 [facility] Comment on above: Performed By: #### N ONGNNONFNA #### [facility] (DEFAULT) [address] [place] [address] 03402 RBC Distribution 13.2 % Normal 10.9-14.3 [facility] Comment on above: Performed By: #### N ONGNNONFNA #### [facility] (DEFAULT) [address] [place] [address] 87170 WBC (Bld) [#/Vol] 4.57 10*3/uL Normal 3.73-10.10 [facility] Comment on above: Performed By: #### N ONGNNONFNA #### [facility] (DEFAULT) [address] [place] [address] 53352 Erythrocyte distribution width (RBC) [Ratio] 13.2 % 10.9 - 14.3 % [facility] Hematocrit (Bld) [Volume fraction] 38.7 % Low 39.6 - 48.8 % [facility] Hemoglobin (Bld) [Mass/Vol] 12.3 g/dL Low 13.4 - 16.8 g/dL [facility] Interpretation and review of laboratory results Abnormal [facility] MCH (RBC) [Entitic mass] 27.9 pg 26.1 - 33.3 pg [facility] MCHC (RBC) [Mass/Vol] 31.8 g/dL Low 31.9 - 36.5 g/dL [facility] MCV (RBC) [Entitic vol] 87.8 fL 79.0 - 94.5 fL [facility] Platelet mean volume (Bld) [Entitic vol] 9.8 fL 8.7 - 12.3 fL [facility] Platelets (Bld) [#/Vol] 173 10*3/uL 146 - 337 K/uL [facility] RBC (Bld) [#/Vol] 4.41 10*6/uL [facility] WBC (Bld) [#/Vol] 4.57 10*3/uL 3.73 - 10. 10 K/uL [facility] CHEM 7 (LYTES,BUN,CREA,GLUC) on 09-04-2023 Anion gap [Moles/Vol] 16 mmol/L Normal 7-17 [facility] Comment on above: Performed By: #### N ONGNAURELIANONA #### [facility] (DEFAULT) [address] [address] Chloride [Moles/Vol] 104 mmol/L Normal 98-108 [facility] Comment on above: Performed By: #### N ONGNGRAEMEFNA #### [facility] (DEFAULT) [address] [address] CO2 [Moles/Vol] 18 mmol/L Low 21-31 [facility] Comment on above: Performed By: #### N ONGNGRAEMEFNA #### [facility] (DEFAULT) [address] [address] Creatinine [Mass/Vol] 1.22 mg/dL Normal 0.70-1.30 [facility] Comment on above: Performed By: #### N ONGNNONFNA #### [facility] (DEFAULT) [address] [address] GFR/1.73 sq M.predicted among non-blacks MDRD (S/P/Bld) [Vol rate/Area] 71 mL/min/{1.73_m2} Normal >=60 [facility] Comment on above: Result Comment: Repo rted eGFR is based on the CKD-EPI 2020 equation using creatinine, age, and sex. Performed By: #### N ONGNGRAEMEFNA #### [facility] (DEFAULT) [address] [place] [address] 80582 Glucose [Mass/Vol] 124 mg/dL High 70-99 [facility] Comment on above: Performed By: #### N ONGNNONFNA #### [facility] (DEFAULT) [address] [place] [address] 63587 Osmolality [Osmolality] 284 mosm/kg Normal 278-305 [facility] Comment on above: Performed By: #### N ONGNGRAEMEFNA #### [facility] (DEFAULT) [address] [place] [address] 80705 Potassium [Moles/Vol] 3.9 mmol/L Normal 3.5-5.0 [facility] Comment on above: Performed By: #### N ONGNGRAEMEFNA #### [facility] (DEFAULT) [address] [place] [address] 78907 Sodium [Moles/Vol] 134 mmol/L Low 135-145 [facility] Comment on above: Performed By: #### N ONGNGRAEMEFNA #### [facility] (DEFAULT) [address] [place] [address] 47562 Urea nitrogen [Mass/Vol] 15 mg/dL Normal 7-25 [facility] Comment on above: Performed By: #### N ONGNNONFNA #### [facility] (DEFAULT) [address] [place] [address] 42351 Urea nitrogen/Creatinine [Mass ratio] 12 mg/mg Normal [facility] Comment on above: Performed By: #### N ONGNNONFNA #### [facility] (DEFAULT) [address] [place] [address] 06276 Anion gap [Moles/Vol] 16 mmol/L 7 - 17 mmol/L [facility] Chloride [Moles/Vol] 104 mmol/L 98 - 10 8 mmol/L [facility] CO2 [Moles/Vol] 18 mmol/L Low 21 - 31 mmol/L [facility] Creatinine [Mass/Vol] 1.22 mg/dL 0.70 - 1.30 mg/dL [facility] eGFR, CKD-EPI, Male 71 - PINF [facility] Glucose [Mass/Vol] 124 mg/dL High 70 - 99 mg/dL [facility] Osmolality Calc [Osmolality] [facility] Potassium [Moles/Vol] 3.9 mmol/L 3.5 - 5.0 mmol/L [facility] Sodium [Moles/Vol] 134 mmol/L Low 135 - 145 mmol/L [facility] Urea nitrogen [Mass/Vol] 15 mg/dL 7 - 25 mg/dL [facility] Urea nitrogen/Creatinine [Mass ratio] 12 mg/mg [facility] CMV PCR,FLUIDS,URINE,EYE ETC on 09-04-2023 Specimen source Nom (Unsp spec) BAL LLL [facility] Specimen source Nom (Unsp spec) BAL RML [facility] HEPATIC FUNCTION PANELon Albumin [Mass/Vol] 3.0 g/dL Low 3.5-5.0 [facility] Comment on above: Performed By: #### N ONGNNONFNA #### [facility] (DEFAULT) [address] [place] [address] 70621 ALP [Catalytic activity/Vol] 112 U/L Normal 32-126 [facility] Comment on above: Performed By: #### N ONGNNONFNA #### [facility] (DEFAULT) [address] [place] [address] ALT [Catalytic activity/Vol] 22 U/L Normal 10-52 [facility] Comment on above: Performed By: #### N ONGNNONFNA #### [facility] (DEFAULT) [address] [place] [address] AST [Catalytic activity/Vol] 30 U/L Normal 10-39 [facility] Comment on above: Performed By: #### N ONGNNONFNA #### [facility] (DEFAULT) [address] [place] [address] 44732 Bilirubin [Mass/Vol] 1.2 mg/dL Normal <1.5 [facility] Comment on above: Performed By: #### N ONGNNONFNA #### [facility] (DEFAULT) [address] [place] [address] 33099 Bilirubin.indirect [Mass/Vol] 0.4 mg/dL High <0.3 [facility] Comment on above: Performed By: #### N ONGNNONFNA #### [facility] (DEFAULT) [address] [place] [address] 75173 Protein [Mass/Vol] 6.4 g/dL Normal 6.4-8.3 [facility] Comment on above: Performed By: #### N ONGNNONFNA #### [facility] (DEFAULT) [address] [place] [address] 23646 Albumin [Mass/Vol] 3.0 g/dL Low 3.5 - 5.0 g/dL [facility] ALP [Catalytic activity/Vol] 112 U/L 32 - 126 U/L [facility] ALT [Catalytic activity/Vol] 22 U/L 10 - 52 U/L [facility] AST [Catalytic activity/Vol] 30 U/L 10 - 39 U/L [facility] Bilirubin [Mass/Vol] 1.2 mg/dL NINF - 1.5 mg/dL [facility] Bilirubin.direct [Mass/Vol] 0.4 mg/dL High NINF - 0.3 mg/dL [facility] Protein [Mass/Vol] 6.4 g/dL 6.4 - 8.3 g/dL [facility] LEGIONELLA PCRon 09-04-2023 Legionella sp rRNA Probe Ql (Unsp spec) Negative Not Applicable [facility] Specimen source Nom (Unsp spec) BAL RML [facility] - Microbiology an d Antimicrobial susceptibilityon 09-04-2023 CMV DNA ESTELITA+probe Ql (Unsp spec) Negative Negative [facility] MAGNESIUMon 09-04-2023 Magnesium [Mass/Vol] 1.4 mg/dL Low 1.6-2.6 [facility] Comment on above: Performed By: #### N ONGNNONFNA #### [facility] (DEFAULT) [address] [place] [address] 99346 Magnesium [Mass/Vol] 1.4 mg/dL Low 1.6 - 2 .6 mg/dL [facility] No Panel Informationon 09-04 Annotation comment [Interpretation] Narrative DNR [facility] PN Report Status DNR [facility] Pneumocystis jiroveci,PCR result Negative Not Applicable [facility] Interpretation and review of laboratory results Abnormal [facility] PNEUMOCYSTIS JIROVECI,PCRon 09-04-2023 Specimen source Nom (Unsp spec) BAL LLL [facility] Specimen source Nom (Unsp spec) BAL RML [facility] Portable XR Chest Viewson RADIOLOGY RADIOLOGY [facility] Radiology Study observation (narrative) [facility] Portable XR Chest ViewsOrder ed By: Joanie Nugent on 09-04-2023 [facility] Work Phone: TACROLIMUS LEVEL, TROUGH (MI E DRUG LEVEL)on 09-04-2023 Interpretation and review of laboratory results Abnormal [facility] Tacrolimus (Bld) [Mass/Vol] 3.6 ng/mL Low [facility] Tacrolimus, Trough 3.6 ng/mL Low Bone Susana ow Transplant: 4.0-12.0, Therapeutic: 5.0-15.0 [facility] Comment on above: Order Comment: Pleas e draw at specified interval PRIOR to dose. Do not hold dose to wait for level. Specimens batched twice per day, (M-F) and once per day weekends Method performed is a chemiluminescent microparticle immunoasssay on the [employer] i2000. The range is based on experience at [facility] and users should be aware that target concentrations vary widely depending on concomitant therapy, time post-transplant, and desired degree of immunosuppression. Performed By: #### T ACRO #### [facility] (DEFAULT) [address] [place], [place] [id number] XR CHEST PORTABLEon 09-04-20 XR CHEST PORTABLE [...] the left lung likely infectious/inflammatory process. Normal [facility] ASPERGILLUS ANTIGEN, BALon 1 Galactomannan Ag IA Qn (Unsp spec) <0.500 [facility] Galactomannan Ag IA Qn (Unsp spec) <0.500 [facility] BAL CONSULTOrdered By: Noa Peralta on 09-03-2023 ALVEOLAR MACROPHAGES 32 % [facility] Work Phone: Bal comments Correlation with microbiology stains and cultures is recommended. [facility] Work Phone: Bal Diff Quik Stain Quality Check Acceptable [facility] Work Phone: BKR BAL INTERPRETATION Cellular specimen comprised of alveolar macrophages and small lymphocytes. No definitive microorganisms are observed. Moderate degenerative changes. [facility] Work Phone: BKR DX CODE Use Ordering [facility] Work Phone: Eosinophils Patterson stain Ql (Unsp spec) 0 % [facility] Work Phone: Lymphocytes/100 WBC (Bld) 57 % [facility] Work Phone: Neutrophils/100 WBC Manual cnt (Bronch spec) 11 % [facility] Work Phone: Pathologist review Jame (Unsp spec) [Interp] Leonardo Peralta MD [facility] Work Phone: [facility] Work Phone: BAL CONSULTon 09-03-2023 ALVEOLAR MACROPHAGES 33 % [facility] Bal comments Correlation with microbiology stains and cultures is recommended. Correlation with viral studies is recommended. [facility] Bal Diff Quik Stain Quality Check Acceptable [facility] BKR BAL INTERPRETATION Cellular specimen comprised of alveolar macrophages and small lymphocytes. No definitive microorganisms are observed. Rare degenerating cells with changes suggestive of viral cytopathic effect are noted. Moderate degenerative changes. [facility] BKR DX CODE Use Ordering [facility] Eosinophils Patterson stain Ql (Unsp spec) 0 % [facility] Lymphocytes/100 WBC (Bld) 49 % [facility] Neutrophils/100 WBC Manual cnt (Bronch spec) 18 % [facility] Pathologist review Jame (Unsp spec) [Interp] Leonardo Peralta MD [facility] BRONCHOSCOPYon 09-03-2023 LAB, [facility] CBC,PLATELETSon 09-03-2023 Hematocrit (Bld) [Volume fraction] 39.6 % Normal 39.6-48.8 [facility] Comment on above: Performed By: #### T ACRO #### [facility] (DEFAULT) [address] [address] Hemoglobin (Bld) [Mass/Vol] 12.8 g/dL Low 13.4-16.8 [facility] Comment on above: Performed By: #### T ACRO #### [facility] (DEFAULT) [address] [address] MCV (RBC) [Entitic vol] 85.9 fL Normal 79.0-94.5 [facility] Comment on above: Performed By: #### T ACRO #### [facility] (DEFAULT) [address] [address] Mean Cell Hgb 27.8 pg Normal 26.1-33.3 [facility] Comment on above: Performed By: #### T ACRO #### [facility] (DEFAULT) [address] [address] Mean Cell Hgb Conc 32.3 g/dL Normal 31.9-36.5 [facility] Comment on above: Performed By: #### T ACRO #### [facility] (DEFAULT) [address] [address] Platelet mean volume (Bld) [Entitic vol] 9.4 fL Normal 8.7-12.3 [facility] Comment on above: Performed By: #### T ACRO #### [facility] (DEFAULT) [address] [address] Platelets (Bld) [#/Vol] 222 10*3/uL Normal 146-337 [facility] Comment on above: Performed By: #### T ACRO #### [facility] (DEFAULT) [address] [address] RBC (Bld) [#/Vol] 4.61 10*6/uL Normal 4.38-5.83 [facility] Comment on above: Performed By: #### T ACRO #### [facility] (DEFAULT) [address] [address] RBC Distribution 13.4 % Normal 10.9-14.3 [facility] Comment on above: Performed By: #### T ACRO #### [facility] (DEFAULT) [address] [place] [address] WBC (Bld) [#/Vol] 4.36 10*3/uL Normal 3.73-10.10 [facility] Comment on above: Performed By: #### T ACRO #### [facility] (DEFAULT) [address] [place] [address] Erythrocyte distribution width (RBC) [Ratio] 13.4 % 10.9 - 14.3 % [facility] Hematocrit (Bld) [Volume fraction] 39.6 % 39.6 - 48.8 % [facility] Hemoglobin (Bld) [Mass/Vol] 12.8 g/dL Low 13.4 - 16.8 g/dL [facility] Interpretation and review of laboratory results Abnormal [facility] MCH (RBC) [Entitic mass] 27.8 pg 26.1 - 33.3 pg [facility] MCHC (RBC) [Mass/Vol] 32.3 g/dL 31.9 - 36.5 g/dL [facility] MCV (RBC) [Entitic vol] 85.9 fL 79.0 - 94.5 fL [facility] Platelet mean volume (Bld) [Entitic vol] 9.4 fL 8.7 - 12.3 fL [facility] Platelets (Bld) [#/Vol] 222 10*3/uL 146 - 337 K/uL [facility] RBC (Bld) [#/Vol] 4.61 10*6/uL [facility] WBC (Bld) [#/Vol] 4.36 10*3/uL 3.73 - 10. 10 K/uL [facility] CHEM 7 (LYTES,BUN,CREA,GLUC) on 09-03-2023 Anion gap [Moles/Vol] 12 mmol/L Normal 7-17 [facility] Comment on above: Performed By: #### L EGN #### [facility] (DEFAULT) [address] [place] [address] Chloride [Moles/Vol] 104 mmol/L Normal 98-108 [facility] Comment on above: Performed By: #### L EGN #### [facility] (DEFAULT) [address] [place] [address] 79065 CO2 [Moles/Vol] 24 mmol/L Normal 21-31 [facility] Comment on above: Performed By: #### L EGN #### [facility] (DEFAULT) [address] [place] [address] 49549 Creatinine [Mass/Vol] 1.20 mg/dL Normal 0.70-1.30 [facility] Comment on above: Performed By: #### L EGN #### [facility] (DEFAULT) [address] [address] GFR/1.73 sq M.predicted among non-blacks MDRD (S/P/Bld) [Vol rate/Area] 73 mL/min/{1.73_m2} Normal >=60 [facility] Comment on above: Result Comment: Repo rted eGFR is based on the CKD-EPI 2020 equation using creatinine, age, and sex. Performed By: #### L EGN #### [facility] (DEFAULT) [address] [address] Glucose [Mass/Vol] 112 mg/dL High 70-99 [facility] Comment on above: Performed By: #### L EGN #### [facility] (DEFAULT) [address] [address] Osmolality [Osmolality] 288 mosm/kg Normal 278-305 [facility] Comment on above: Performed By: #### L EGN #### [facility] (DEFAULT) [address] [address] Potassium [Moles/Vol] 4.1 mmol/L Normal 3.5-5.0 [facility] Comment on above: Performed By: #### L EGN #### [facility] (DEFAULT) [address] [place] [address] 39144 Sodium [Moles/Vol] 136 mmol/L Normal 135-145 [facility] Comment on above: Performed By: #### L EGN #### [facility] (DEFAULT) [address] [place] [address] Urea nitrogen [Mass/Vol] 17 mg/dL Normal 7-25 [facility] Comment on above: Performed By: #### L EGN #### [facility] (DEFAULT) [address] [place] [address] Urea nitrogen/Creatinine [Mass ratio] 14 mg/mg Normal [facility] Comment on above: Performed By: #### L EGN #### [facility] (DEFAULT) [address] [place] [address] Anion gap [Moles/Vol] 12 mmol/L 7 - 17 mmol/L [facility] Chloride [Moles/Vol] 104 mmol/L 98 - 10 8 mmol/L [facility] CO2 [Moles/Vol] 24 mmol/L 21 - 31 mmol/L [facility] Creatinine [Mass/Vol] 1.20 mg/dL 0.70 - 1.30 mg/dL [facility] eGFR, CKD-EPI, Male 73 - PINF [facility] Glucose [Mass/Vol] 112 mg/dL High 70 - 99 mg/dL [facility] Osmolality Calc [Osmolality] 288 [facility] Potassium [Moles/Vol] 4.1 mmol/L 3.5 - 5.0 mmol/L [facility] Sodium [Moles/Vol] 136 mmol/L 135 - 145 mmol/L [facility] Urea nitrogen [Mass/Vol] 17 mg/dL 7 - 25 mg/dL [facility] Urea nitrogen/Creatinine [Mass ratio] 14 mg/mg [facility] CYTOLOGY, NON-GYNOrdered By: Sherice Jimenez on 09-03-2023 CYTOLOGIC DIAGNOSIS j4eadJVcNWTgtWNlTGRyV7z ikkCuOKYncZUqB3UahnmgMM mpWG7hNH1msVxdnLJrcWVjD FHtOqCvq6gpi862yMFod4ht PTJOgzkocYt2t3diGIJYvJ3 lx2n9nF69GUHvwP5isVRuDE ivbdNuTPoeavDkipHyOaq2E XN4pUncXxarwCJ5cVXelLA5 PVkrf1UmvDnvqLuiQKD8FHJ vVobcUVsbyER7aTPfnZzjoK SvIC7gr8jouAG4zrRfZGC2t AufsCQ6tDbahppxu2dpeUQ7 jMY7XCitdNU3QJckKdGaR6n qYQVneZ1sV51cT4ocQUYqpD zgBImyOUPloGM5ZIG7BNUon 1xsZXZlbHRleHRcJzAxXCdi Snj5n3wcHBPqnI95wUTcaaX 4mKwyVXzneIJ1YK58ZYxrv9 XsIOHqyHjbFABjbX6gRqKwU GxldmVsbmZjbjIzXGxldmVs cuRtZXldosJnc0EvsiUwpML 1ULmjaxGgxUR5lQquMHAkQ1 Y4O518TAvnhxCzfuIpIeBfb zo8CSBsjVdnnNoaeMeuirFm LLyznhSvgeEaWgSytSZ2ECp aZiQaAkWhkIZ5XTiyFqQhfG L4MDbhvIIomNH9KIqpoRY5O Ta6WSy3NLbcAYimSoq5vHho wPT2DEockY7aJNKuV14kMaS 3a6hxdCT0gYA7BRgdnBJ7QR cbDgYwI3svLGQoyE8bU01tQ 8flETFsmXazIUqiWRMpvEZ5 MYK9GLRgs8xfVOXupIBupCL bPdWiKWygVsk7k5emBJHzxB 24xINrpmY1aNccVI45TEctv 3WyCNUkgVazDYXnlB9yPaXb XGxldmVsbmZjbjIzXGxldmV vupPsJBwaceGzv2CnpaDskP H3TJvoaxEppDV5qHmbVNAeD 1V3P610XOzpqqWcraMkSbEi esz2SIZeuUpphOalnMinkyQ sAGyriaVobeNjQxXzwJJ2YA yeCcUaMcOclIV7UBaySeVdk LJ3CKmykOVylZZ5EVzxbRW2 LYi1QSu6RIybZNpfBdx5jDo ujJD7CRgbfN1kAGPxJ53qJd L0o1wxrUP4fDU8JMygdRC3X EspEzWuM0vaQEGcqT0pR61c U0uwVQMtxYzcDUwpKJBvtUK 7ENU2YWDwu4llNOJvhLBddM GoLuOgWTyaOnl0s1tzQOIvx H26cKCidgF8jAnbKR53THlw n7XjVIBaoLzkSXLeaS1dPuK zXGxldmVsbmZjbjIzXGxldm CthvVuNWipvdZgj9GfrsPxk QP1OOabmmTqzBO6hBnnWWAs I2Z1S449IJalntLecoYhBmM ovdw6ZUTufArxdAwydBxjyo WxJQafpiWkwiPbWyJinTY9S ZcqKmTaFvRzsDV4ONksKbNn sCP5ALuscYGxpAI0SHmevBF 3LEm3QLi6YYekFKuhQaw7wS avkFX3SCmprF7dNETyG37zY mL1fT10CVrfiVspwX19HMZx fHYrzFWlnAZ6KPnktQyhzI1 8KUSweKLrUKwjk3JhQAHgEf K2JGS6DYRreBxylA01JDLxr DFcO318zuUmESbzVJ14JEOd cGVydzEyMjQwXHBhcGVyaDE 8QPFkTH7wvadcWCkwXArwAF GqrgQ0DKCwvMWgJ1ZzSGJjB E3rkactBDN3NDtdREVkHOR4 ZuQiFCHln6Kpvhp9RnFhlYj 6x2zvDNUsGPGapLsbi4oaLL V0LVHmpDGgT6wigW8cTJTzH X1vdgbyl3wfEGriXLlzEXQz jAP1lcK1MWNxbIUvK2MuvI8 cOVXiHFQilzFhcGvplZ7oXu tgnfAbIFXeCXWDXdYOYc1CR 3zZBLbUDG2TVHVdUAKZZUaH GIYKVDTFIZxYR2OTTVuRPmQ uMKJkEXQlN9iUV3iZR3siDm dlPkMcSYbjYLYyMfRzL1NyD WZepronWQRsYWUHTR0UOFUZ NVKGBz4CCSZ9MUFfuqsjqWL 4ZVzvfhJvsKq4lXChcRcqoN 5cYlxmczIyXGNmMSBObyBNY RkwV46wfeZsT7SipRXiFOKg RVuvBJ55oABvTYHtuWNoGSe 0jB3pXFqxnJzdpqOKxVJmpB 1lblxiMFxjZjBccGFyXGxpM FxsczBccGFyfQ== [facility] Work Phone: Case Report [facility] Work Phone: Clinical History k1kieNKhQXPdmRBxCRSx M1x xqsRfXYGxxUAoU0PggjxgTB euZJ9vCW5icSaipUTpgJMdD AUdIvVcq7fau726qXIsk2cl XSWMsgpqsMd1fQlkT50hx1M 3HkuoF1qkONHlTBmmLDFgGY jkiXWsQNz3SEXpdMBlqcLuO xBbKMWhiRFcbMB6MGFrFG0q kdsyKGsiEFbnVPIfpzR2UMI woWVuX4EySOMnTN4gwnjgYS T8TQpzOHBaWLM9YvArLZIrc 2Nmjyr1SyWtdYg5u7ofZGDm AFAvwDkix4tqZRG2GEWrsIS dG7latO5dECLmIE1vkbeav6 zrVBxhRInnJECeaYO7snX1F AKemQZwW0ZraY0fNWEeHTVt ssApdUnffO9nHmUvLBipYtQ gUmVuYWwgdHJhbnNwbGFudC 7gSHMysz8= [facility] Work Phone: For Immediate Release to Patient's [facility]? Yes Yes [facility] Work Phone: Gross Description z1khxGCcHZVrgLCwKCEq M1x punHlMORzmEMuR6SzqabyLH btUC2vGL5plQbotJKgbVYoB WZoPhOzr5oxp465hVAhc2mn NFBOwhxegRp0aLeaG03ro9T 9LkfqY68lgHVkZMN7VMAzEY WzvJUeEASzWRN4POHdpWErL 9ulNTKxXQ5lzkbwFSivXSna GMTuzBG4UDSixQEwX5OyPGM iNFxoARIthua0YbBnGm4geD VyeTcyMFxwYXJkXHBsYWluX GZzMjAgTExMIEJBTFxwYXIg MJNoiVPuHXp4GGWmiJ3rrGT xngIccFNtwX2duCedHUzdDF IgMSBUUCBzbGlkZSBQYXAgc 4GwaG3wvMHqJOYrsrLycOTy XHBhcn0= [facility] Work Phone: [facility] Work Phone: HEPATIC FUNCTION PANELon Albumin [Mass/Vol] 3.2 g/dL Low 3.5-5.0 [facility] Comment on above: Performed By: #### L EGN #### [facility] (DEFAULT) [address] [place] [address] ALP [Catalytic activity/Vol] 118 U/L Normal 32-126 [facility] Comment on above: Performed By: #### L EGN #### [facility] (DEFAULT) [address] [place] [address] [id number] ALT [Catalytic activity/Vol] 25 U/L Normal 10-52 [facility] Comment on above: Performed By: #### L EGN #### [facility] (DEFAULT) [address] [place] [address] [id number] AST [Catalytic activity/Vol] 32 U/L Normal 10-39 [facility] Comment on above: Performed By: #### L EGN #### [facility] (DEFAULT) [address] [place] [address] [id number] Bilirubin [Mass/Vol] 1.0 mg/dL Normal <1.5 [facility] Comment on above: Performed By: #### L EGN #### [facility] (DEFAULT) [address] [place] [address] [id number] Bilirubin.indirect [Mass/Vol] 0.3 mg/dL High <0.3 [facility] Comment on above: Performed By: #### L EGN #### [facility] (DEFAULT) [address] [place] [address] [id number] Protein [Mass/Vol] 6.5 g/dL Normal 6.4-8.3 [facility] Comment on above: Performed By: #### L EGN #### [facility] (DEFAULT) [address] [place] [address] [id number] Albumin [Mass/Vol] 3.2 g/dL Low 3.5 - 5.0 g/dL [facility] ALP [Catalytic activity/Vol] 118 U/L 32 - 126 U/L [facility] ALT [Catalytic activity/Vol] 25 U/L 10 - 52 U/L [facility] AST [Catalytic activity/Vol] 32 U/L 10 - 39 U/L [facility] Bilirubin [Mass/Vol] 1.0 mg/dL NINF - 1.5 mg/dL [facility] Bilirubin.direct [Mass/Vol] 0.3 mg/dL High NINF - 0.3 mg/dL [facility] Protein [Mass/Vol] 6.5 g/dL 6.4 - 8.3 g/dL [facility] HISTOPLASMA AND BLASTOMYCES ANTIGEN, ENZYME IMMUNOASSAY, SERMon 09-03-2023 Histoplasma/Blastomyc es Ag Result Detected Critically abnormal Not Detected [facility] Histoplasma/Blastomyc es Ag Value 5.3 ng/mL [facility] Interpretation and review of laboratory results Abnormal [facility] IMMUNOPHENOTYPING, TISSUE/FL UIDon 09-03-2023 BKR DX CODE Use Ordering Normal [facility] Comment on above: Order Comment: Pleas e draw at specified interval PRIOR to dose. Do not hold dose to wait for level. Specimens batched twice per day, (M-F) and once per day weekends Method performed is a chemiluminescent microparticle immunoasssay on the [employer] i2000. The range is based on experience at [facility] and users should be aware that target concentrations vary widely depending on concomitant therapy, time post-transplant, and desired degree of immunosuppression. Performed By: #### T ACRO #### [facility] (DEFAULT) [address] [place] [address] Flow Interpretation See Comment Normal [facility] Comment on above: Order Comment: Pleas e draw at specified interval PRIOR to dose. Do not hold dose to wait for level. Specimens batched twice per day, (M-F) and once per day weekends Method performed is a chemiluminescent microparticle immunoasssay on the [employer] i2000. The range is based on experience at [facility] and users should be aware that target concentrations vary widely depending on concomitant therapy, time post-transplant, and desired degree of immunosuppression. Performed By: #### T ACRO #### [facility] (DEFAULT) [address] [place] [address] Flow Interpreted by: Yossi Perla MD, PhD Normal [facility] Comment on above: Order Comment: Pleas e draw at specified interval PRIOR to dose. Do not hold dose to wait for level. Specimens batched twice per day, (M-F) and once per day weekends Method performed is a chemiluminescent microparticle immunoasssay on the [employer] i2000. The range is based on experience at [facility] and users should be aware that target concentrations vary widely depending on concomitant therapy, time post-transplant, and desired degree of immunosuppression. Performed By: #### T ACRO #### [facility] (DEFAULT) [address] [place] [address] MAGNESIUMon 09-03-2023 Magnesium [Mass/Vol] 1.6 mg/dL Normal 1.6-2.6 [facility] Comment on above: Performed By: #### T ACRO #### [facility] (DEFAULT) [address] [place] [address] Interpretation and review of laboratory results Normal [facility] Magnesium [Mass/Vol] 1.6 mg/dL 1.6 - 2 .6 mg/dL [facility] No Panel Informationon 09-03 Interpretation and review of laboratory results Abnormal [facility] PARVOVIRUS (B19) DNA, PCR, B LOODon 09-03-2023 PARVOVIRUS B19 BY RAPID PCR Not detected Not Detected [facility] MI SPEC SOURCE Whole Blood [facility] Portable XR Chest Viewson RADIOLOGY RADIOLOGY [facility] Radiology Study observation (narrative) [facility] Portable XR Chest ViewsOrder ed By: Lester Grove on 09-03-2023 [facility] Work Phone: XR CHEST PORTABLEon 09-03-20 XR [...] have reviewed and approved this report. Normal [facility] ACID FAST CULTUREon 09-02-20 23 Bacteria identified Cx Nom (Unsp spec) NO GROWTH DAY 42 OF 42 Normal [facility] Comment on above: Performed By: #### H EMOGC #### [facility] (DEFAULT) [address] [address] Fluorochrome Stain No acid Fast Bacillu s Seen Normal [facility] Comment on above: Performed By: #### H EMOGC #### [facility] (DEFAULT) [address] [address] Bacteria identified Cx Nom (Unsp spec) NO GROWTH DAY 42 OF 42 Normal [facility] Comment on above: Order Comment: Pleas e draw at specified interval PRIOR to dose. Do not hold dose to wait for level. Specimens batched twice per day, (M-F) and once per day weekends Method performed is a chemiluminescent microparticle immunoasssay on the [employer] i2000. The range is based on experience at [facility] and users should be aware that target concentrations vary widely depending on concomitant therapy, time post-transplant, and desired degree of immunosuppression. Performed By: #### T ACRO #### [facility] (DEFAULT) [address] [address] Fluorochrome Stain No acid Fast Bacillu s Seen Normal [facility] Comment on above: Order Comment: Pleas e draw at specified interval PRIOR to dose. Do not hold dose to wait for level. Specimens batched twice per day, (M-F) and once per day weekends Method performed is a chemiluminescent microparticle immunoasssay on the [employer] i2000. The range is based on experience at [facility] and users should be aware that target concentrations vary widely depending on concomitant therapy, time post-transplant, and desired degree of immunosuppression. Performed By: #### T ACRO #### [facility] (DEFAULT) [address] [address] ASPERGILLUS (GALACTOMANNAN), ANTIGENon 09-02-2023 Galactomannan Ag IA Qn <0.500 NINF [facility] ASPERGILLUS ANTIGEN, BALon 1 Aspergillus Galactomannan Antigen, BAL <0.500 Normal <0.5 [facility] Comment on above: Result Comment: ADDITIONAL INFORMATION This is a qualitative test and the resulted index value is not indicative of disease severity. Serial testing is recommended for patients at high risk for invasive aspergillosis. This assay was performed using the FDA-cleared [employer] Platelia Aspergillus Galactomannan EIA. Test Performed by: [place] [address] Etl Developer: Rosendo Bose M.D. Ph.D.; CLIA# [id number] Performed By: #### T ACRO #### [facility] (DEFAULT) [address] [place] [address] Aspergillus Galactomannan Antigen, BAL <0.500 Normal <0.5 [facility] Comment on above: Order Comment: Pleas e draw at specified interval PRIOR to dose. Do not hold dose to wait for level. Specimens batched twice per day, (M-F) and once per day weekends Method performed is a chemiluminescent microparticle immunoasssay on the [employer] i2000. The range is based on experience [...] This assay was performed using the FDA-cleared [employer] Platelia Aspergillus Galactomannan EIA. Test Performed by: [facility] [address] [place] [address] Etl Developer: Rosendo Bose M.D. Ph.D.; CLIA# [id number] Performed By: #### T ACRO #### [facility] (DEFAULT) [address] [place] [address] ATYPICAL BACTERIAL PNEUMONIA ,PCROrdered By: Shari Contreras on 09-02-2023 B. parapertussis DNA ESTELITA+probe Ql (Unsp spec) Not detected Not Detected [facility] B. pertussis DNA ESTELITA+probe Ql (Unsp spec) Not detected Not Detected [facility] C. pneumoniae DNA ESTELITA+probe Ql (Unsp spec) Not detected Not Detected [facility] Interpretation and review of laboratory results Normal [facility] M. pneumoniae DNA ESTELITA+probe Ql (Unsp spec) Not detected Not Detected [facility] ATYPICAL BACTERIAL PNEUMONIA ,PCRon 09-02-2023 Bordetella Parapertussis Not detected Normal Not Detected [facility] Comment on above: Order Comment: Viral [...] by The [facility] at [facility]. It has not been cleared or approved by the FDA. The laboratory is required under CLIA as qualified to perform high-complexity testing. This test is used for clinical purposes. It should not be regarded as investigational or for research. Performed By: #### [facility] #### [facility] (DEFAULT) [address] [address] Bordetella Pertussis Not detected Normal Not Detected [facility] Comment on above: Order Comment: Viral [...] by The [facility]. It has not been cleared or approved by the FDA. The laboratory is required under CLIA as qualified to perform high-complexity testing. This test is used for clinical purposes. It should not be regarded as investigational or for research. Performed By: #### [facility] #### [facility] (DEFAULT) [address] [address] Chlamydia Pneumoniae Not detected Normal Not Detected [facility] Comment on above: Order Comment: Viral [...] by [facility]. It has not been cleared or approved by the FDA. The laboratory is required under CLIA as qualified to perform high-complexity testing. This test is used for clinical purposes. It should not be regarded as investigational or for research. Performed By: #### [facility] #### [facility] (DEFAULT) [address] [address] Mycoplasma Pneumoniae Not detected Normal Not Detected [facility] Comment on above: Order Comment: Viral [...] by [facility]. It has not been cleared or approved by the FDA. The laboratory is required under CLIA as qualified to perform high-complexity testing. This test is used for clinical purposes. It should not be regarded as investigational or for research. Performed By: #### H EMOGC #### [facility] (DEFAULT) [address] [address] BAL CONSULTon 09-02-2023 ALVEOLAR MACROPHAGES 33 % Normal [facility] Comment on above: Order Comment: BAL c onsultIf > 15% lymphocytes - please send for flow. Performed By: #### H EMOGC #### [facility] (DEFAULT) [address] [address] Bal comments Correlation with microbiology stains and cultures is recommended. Correlation with viral studies is recommended. Normal [facility] Comment on above: Order Comment: BAL c onsultIf > 15% lymphocytes - please send for flow. Performed By: #### H EMOGC #### [facility] (DEFAULT) [address] [address] Bal Diff Quik Stain Quality Check Acceptable Normal [facility] Comment on above: Order Comment: BAL c onsultIf > 15% lymphocytes - please send for flow. Performed By: #### H EMOGC #### [facility] (DEFAULT) [address] [address] Bal Reviewed By: Leonardo Peralta MD [facility] Comment on above: Order Comment: BAL c onsultIf > 15% lymphocytes - please send for flow. Performed By: #### H EMOGC #### [facility] (DEFAULT) [address] [address] BKR BAL INTERPRETATION Cellular specimen comprised of alveolar macrophages and small lymphocytes. No definitive microorganisms are observed. Rare degenerating cells with changes suggestive of viral cytopathic effect are noted. Moderate degenerative changes. Normal [facility] Comment on above: Order Comment: BAL c onsultIf > 15% lymphocytes - please send for flow. Performed By: #### H EMOGC #### [facility] (DEFAULT) [address] [place] [address] BKR DX CODE Use Ordering Normal [facility] Comment on above: Order Comment: BAL c onsultIf > 15% lymphocytes - please send for flow. Performed By: #### H EMOGC #### [facility] (DEFAULT) [address] [place] [address] Eosinophils/100 WBC (Bld) 0 % Normal [facility] Comment on above: Order Comment: BAL c onsultIf > 15% lymphocytes - please send for flow. Performed By: #### H EMOGC #### [facility] (DEFAULT) [address] [place] [address] Lymphocytes/100 WBC (Bld) 49 % Normal [facility] Comment on above: Order Comment: BAL c onsultIf > 15% lymphocytes - please send for flow. Performed By: #### H EMOGC #### [facility] (DEFAULT) [address] [place] [address] Neutrophils/100 WBC (Bld) 18 % Normal [facility] Comment on above: Order Comment: BAL c onsultIf > 15% lymphocytes - please send for flow. Performed By: #### H EMOGC #### [facility] (DEFAULT) [address] [place] [address] ALVEOLAR MACROPHAGES 32 % Normal [facility] Comment on above: Order Comment: BAL c onsult for cell differential and pathologist review. Please do flow cytometry if > 12% lymphocytes Performed By: #### H EMOGC #### [facility] (DEFAULT) [address] [place] [address] Bal comments Correlation with microbiology stains and cultures is recommended. Normal [facility] Comment on above: Order Comment: BAL c onsult for cell differential and pathologist review. Please do flow cytometry if > 12% lymphocytes Performed By: #### H EMOGC #### [facility] (DEFAULT) [address] [address] Bal Diff Quik Stain Quality Check Acceptable [facility] Comment on above: Order Comment: BAL c onsult for cell differential and pathologist review. Please do flow cytometry if > 12% lymphocytes Performed By: #### H EMOGC #### [facility] (DEFAULT) [address] [address] Bal Reviewed By: Leonardo Peralta MD [facility] Comment on above: Order Comment: BAL c onsult for cell differential and pathologist review. Please do flow cytometry if > 12% lymphocytes Performed By: #### H EMOGC #### [facility] (DEFAULT) [address] [address] BKR BAL INTERPRETATION Cellular specimen comprised of alveolar macrophages and small lymphocytes. No definitive microorganisms are observed. Moderate degenerative changes. [facility] Comment on above: Order Comment: BAL c onsult for cell differential and pathologist review. Please do flow cytometry if > 12% lymphocytes Performed By: #### H EMOGC #### [facility] (DEFAULT) [address] [address] BKR DX CODE Use Ordering Normal [facility] Comment on above: Order Comment: BAL c onsult for cell differential and pathologist review. Please do flow cytometry if > 12% lymphocytes Performed By: #### H EMOGC #### [facility] (DEFAULT) [address] [address] Eosinophils/100 WBC (Bld) 0 % [facility] Comment on above: Order Comment: BAL c onsult for cell differential and pathologist review. Please do flow cytometry if > 12% lymphocytes Performed By: #### H EMOGC #### [facility] (DEFAULT) [address] [address] Lymphocytes/100 WBC (Bld) 57 % Normal [facility] Comment on above: Order Comment: BAL c onsult for cell differential and pathologist review. Please do flow cytometry if > 12% lymphocytes Performed By: #### H EMOGC #### [facility] (DEFAULT) [address] [place] [address] Neutrophils/100 WBC (Bld) 11 % Normal [facility] Comment on above: Order Comment: CARRIE ro for cell differential and pathologist review. Please do flow cytometry if > 12% lymphocytes Performed By: #### H EMOGC #### [facility] (DEFAULT) [address] [place] [address] BRONCHOSCOPYon 09-02-2023 Radiology Study observation (narrative) [facility] Bacteria identified Cx Nom ( Bld)on 09-02-2023 Bacteria identified Cx Nom (Unsp spec) NO GROWTH DAY 5 OF 5 [facility] CBC,PLATELETSon 09-02-2023 Hematocrit (Bld) [Volume fraction] 39.9 % Normal 39.6-48.8 [facility] Comment on above: Performed By: #### H EMOGC #### [facility] (DEFAULT) [address] [place] [address] Hemoglobin (Bld) [Mass/Vol] 12.9 g/dL Low 13.4-16.8 [facility] Comment on above: Performed By: #### H EMOGC #### [facility] (DEFAULT) [address] [address] MCV (RBC) [Entitic vol] 86.4 fL Normal 79.0-94.5 [facility] Comment on above: Performed By: #### H EMOGC #### [facility] (DEFAULT) [address] [place] [address] Mean Cell Hgb 27.9 pg Normal 26.1-33.3 [facility] Comment on above: Performed By: #### H EMOGC #### [facility] (DEFAULT) [address] [address] Mean Cell Hgb Conc 32.3 g/dL Normal 31.9-36.5 [facility] Comment on above: Performed By: #### H EMOGC #### [facility] (DEFAULT) [address] [place] [address] Platelet mean volume (Bld) [Entitic vol] 9.5 fL Normal 8.7-12.3 [facility] Comment on above: Performed By: #### H EMOGC #### [facility] (DEFAULT) [address] [place] [address] Platelets (Bld) [#/Vol] 210 10*3/uL Normal 146-337 [facility] Comment on above: Performed By: #### H EMOGC #### [facility] (DEFAULT) [address] [place] [address] RBC (Bld) [#/Vol] 4.62 10*6/uL Normal 4.38-5.83 [facility] Comment on above: Performed By: #### H EMO #### [facility] (DEFAULT) [address] [place] [address] RBC Distribution 13.2 % Normal 10.9-14.3 [facility] Comment on above: Performed By: #### H EMO #### [facility] (DEFAULT) [address] [place] [address] WBC (Bld) [#/Vol] 4.12 10*3/uL Normal 3.73-10.10 [facility] Comment on above: Performed By: #### H EMOGC #### [facility] (DEFAULT) [address] [place] [address] Erythrocyte distribution width (RBC) [Ratio] 13.2 % 10.9 - 14.3 % [facility] Hematocrit (Bld) [Volume fraction] 39.9 % 39.6 - 48.8 % [facility] Hemoglobin (Bld) [Mass/Vol] 12.9 g/dL Low 13.4 - 16.8 g/dL [facility] Interpretation and review of laboratory results Abnormal [facility] MCH (RBC) [Entitic mass] 27.9 pg 26.1 - 33.3 pg [facility] MCHC (RBC) [Mass/Vol] 32.3 g/dL 31.9 - 36.5 g/dL [facility] MCV (RBC) [Entitic vol] 86.4 fL 79.0 - 94.5 fL [facility] Platelet mean volume (Bld) [Entitic vol] 9.5 fL 8.7 - 12.3 fL [facility] Platelets (Bld) [#/Vol] 210 10*3/uL 146 - 337 K/uL [facility] RBC (Bld) [#/Vol] 4.62 10*6/uL [facility] WBC (Bld) [#/Vol] 4.12 10*3/uL 3.73 - 10. 10 K/uL [facility] CHEM 7 (LYTES,BUN,CREA,GLUC) on 09-02-2023 Anion gap [Moles/Vol] 13 mmol/L Normal 7-17 [facility] Comment on above: Performed By: #### Y PNRP #### [facility] (DEFAULT) [address] [address] Chloride [Moles/Vol] 105 mmol/L Normal 98-108 [facility] Comment on above: Performed By: #### Y PNRP #### [facility] (DEFAULT) [address] [place] [address] CO2 [Moles/Vol] 22 mmol/L Normal 21-31 [facility] Comment on above: Performed By: #### Y PNRP #### [facility] (DEFAULT) [address] [address] Creatinine [Mass/Vol] 1.25 mg/dL Normal 0.70-1.30 [facility] Comment on above: Performed By: #### Y PNRP #### [facility] (DEFAULT) [address] [address] GFR/1.73 sq M.predicted among non-blacks MDRD (S/P/Bld) [Vol rate/Area] 69 mL/min/{1.73_m2} Normal >=60 [facility] Comment on above: Result Comment: Repo rted eGFR is based on the CKD-EPI 2020 equation using creatinine, age, and sex. Performed By: #### Y PNRP #### [facility] (DEFAULT) [address] [place] [address] Glucose [Mass/Vol] 105 mg/dL High 70-99 [facility] Comment on above: Performed By: #### Y PNRP #### [facility] (DEFAULT) [address] [place] [address] Osmolality [Osmolality] 287 mosm/kg Normal 278-305 [facility] Comment on above: Performed By: #### Y PNRP #### [facility] (DEFAULT) [address] [place] [address] Potassium [Moles/Vol] 4.3 mmol/L Normal 3.5-5.0 [facility] Comment on above: Performed By: #### Y PNRP #### [facility] (DEFAULT) [address] [place] [address] Sodium [Moles/Vol] 136 mmol/L Normal 135-145 [facility] Comment on above: Performed By: #### Y PNRP #### [facility] (DEFAULT) [address] [place] [address] Urea nitrogen [Mass/Vol] 16 mg/dL Normal 7-25 [facility] Comment on above: Performed By: #### Y PNRP #### [facility] (DEFAULT) [address] [place] [address] Urea nitrogen/Creatinine [Mass ratio] 13 mg/mg Normal [facility] Comment on above: Performed By: #### Y PNRP #### [facility] (DEFAULT) [address] [place] [address] Anion gap [Moles/Vol] 13 mmol/L 7 - 17 mmol/L [facility] Chloride [Moles/Vol] 105 mmol/L 98 - 10 8 mmol/L [facility] CO2 [Moles/Vol] 22 mmol/L 21 - 31 [facility] Creatinine [Mass/Vol] 1.25 mg/dL 0.70 - 1.30 mg/dL [facility] eGFR, CKD-EPI, Male 69 - [facility] Glucose [Mass/Vol] 105 mg/dL High 70 - 99 mg/dL [facility] Osmolality Calc [Osmolality] 287 [facility] Potassium [Moles/Vol] 4.3 mmol/L 3.5 - 5.0 mmol/L [facility] Sodium [Moles/Vol] 136 mmol/L 135 - 145 mmol/L [facility] Urea nitrogen [Mass/Vol] 16 mg/dL 7 - 25 mg/dL [facility] Urea nitrogen/Creatinine [Mass ratio] 13 mg/mg [facility] CMV PCR,FLUIDS,URINE,EYE ETC on 09-02-2023 CMV by PCR Result Negative Normal Negative [facility] Comment on above: Result Comment: ADDITIONAL INFORMATION This test was developed and its performance characteristics determined by [facility] in a manner consistent with CLIA requirements. This test has not been cleared or approved by the U.S. Food and Drug Administration. Test Performed by: [facility] - [address] [address] Etl Developer: Rosendo Bose M.D. Ph.D.; CLIA# [id number] Performed By: #### T ACRO #### [facility] (DEFAULT) [address] [place] [address] CMV BY PCR SOURCE BAL RML Normal [facility] Comment on above: Performed By: #### T ACRO #### [facility] (DEFAULT) [address] [place] [address] CMV by PCR Result Negative Normal Negative [facility] Comment on above: Result Comment: ADDITIONAL INFORMATION This test was developed and its performance characteristics determined by [facility] in a manner consistent with CLIA requirements. This test has not been cleared or approved by the U.S. Food and Drug Administration. Test Performed by: [facility] - [address] [address] Etl Developer: Rosendo Bose M.D. Ph.D.; CLIA# [id number] Performed By: #### T ACRO #### [facility] (DEFAULT) [address] [address] CMV BY PCR SOURCE BAL LLL Normal [facility] Comment on above: Performed By: #### T ACRO #### [facility] (DEFAULT) [address] [place] [address] CYTOLOGY, NON-GYNon 09-02-20 CYTOLOGIC DIAGNOSIS [facility] Comment on above: Result Comment: A. B RONCHOALVEOLAR LAVAGE, LEFT LOWER LOBE (CYTOLOGY): FINAL DIAGNOSIS: No Malignant Cells Are Identified Hypocellular Specimen Performed By: #### N RONYGNGRAEMEFROBERTA #### [facility] (DEFAULT) [address] [place] [address] [id number] Case Report Normal [facility] Comment on above: Result Comment: [facility] Cytology Report Case: [id number] Authorizing Provider: Crow Diaz MD Collected: 09/02/2023 08:38 AM Ordering Location: [facility] Received: 09/02/2023 10:44 AM Pathologist: Sherice Jimenez MD Specimen: BRONCHOALVEOLAR LAVAGE, LLL BAL Performed By: #### N LITZY #### [facility] (DEFAULT) [address] [address] Clinical History Renal transplant. Normal [facility] Comment on above: Performed By: #### N LITZY #### [facility] (DEFAULT) [address] [address] Gross Description Normal [facility] Comment on above: Result Comment: LLL BAL 1 ml hazy colorless fld unfixed 1 TP slide Pap stain For Immediate Release to Patient's MyChart? Yes Performed By: #### N ONGNNONFNA #### [facility] (DEFAULT) [address] [address] FUNGUS CULTUREon 09-02-2023 Bacteria identified Cx Nom (Unsp spec) Normal [facility] Comment on above: Order Comment: Ident ification was performed on the MALDI-TOF mass spectrometer [employer]. This test was developed by [facility] at [facility]. It has not been cleared or approved by the FDA. The laboratory is regulated under CLIA as qualified to perform high-complexity testing. This test is used for clinical purposes. It should not be regarded as investigational or for research. Result Comment: [employer] [place] Histoplasma capsulatum Performed By: #### H EMOGC #### [facility] (DEFAULT) [address] [address] Bacteria identified Cx Nom (Unsp spec) NO GROWTH DAY 28 OF 28 Normal [facility] Comment on above: Order Comment: Pleas e draw at specified interval PRIOR to dose. Do not hold dose to wait for level. Specimens batched twice per day, (M-F) and once per day weekends Method performed is a chemiluminescent microparticle immunoasssay on the [employer] i2000. The range is based on experience at [facility] and users should be aware that target concentrations vary widely depending on concomitant therapy, time post-transplant, and desired degree of immunosuppression. Performed By: #### T ACRO #### [facility] (DEFAULT) [address] [address] HEPATIC FUNCTION PANELon Albumin [Mass/Vol] 3.2 g/dL Low 3.5-5.0 [facility] Comment on above: Performed By: #### Y PNRP #### [facility] (DEFAULT) [address] [place] [address] ALP [Catalytic activity/Vol] 107 U/L Normal 32-126 [facility] Comment on above: Performed By: #### Y PNRP #### [facility] (DEFAULT) [address] [place] [address] ALT [Catalytic activity/Vol] 20 U/L Normal 10-52 [facility] Comment on above: Performed By: #### Y PNRP #### [facility] (DEFAULT) [address] [place] [address] AST [Catalytic activity/Vol] 31 U/L Normal 10-39 [facility] Comment on above: Performed By: #### Y PNRP #### [facility] (DEFAULT) [address] [place] [address] Bilirubin [Mass/Vol] 1.0 mg/dL Normal <1.5 [facility] Comment on above: Performed By: #### Y PNRP #### [facility] (DEFAULT) [address] [place] [address] Bilirubin.indirect [Mass/Vol] 0.3 mg/dL High <0.3 [facility] Comment on above: Performed By: #### Y PNRP #### [facility] (DEFAULT) [address] [place] [address] Protein [Mass/Vol] 6.6 g/dL Normal 6.4-8.3 [facility] Comment on above: Performed By: #### Y PNRP #### [facility] (DEFAULT) [address] [place] [address] Albumin [Mass/Vol] 3.2 g/dL Low 3.5 - 5.0 g/dL [facility] ALP [Catalytic activity/Vol] 107 U/L 32 - 126 U/L [facility] ALT [Catalytic activity/Vol] 20 U/L 10 - 52 U/L [facility] AST [Catalytic activity/Vol] 31 U/L 10 - 39 [facility] Bilirubin [Mass/Vol] 1.0 mg/dL NINF - 1.5 mg/dL [facility] Bilirubin.direct [Mass/Vol] 0.3 mg/dL High NINF - 0.3 mg/dL [facility] Protein [Mass/Vol] 6.6 g/dL 6.4 - 8.3 g/dL [facility] HISTOPLASMA ANTIGEN, FLUIDon 09-02-2023 FH SOURCE BAL RML Normal [facility] Comment on above: Performed By: #### T ACRO #### [facility] (DEFAULT) [address] [address] Histo FLD interpretation Negative Normal [facility] Comment on above: Result Comment: ADDITIONAL INFORMATION Reference interval: None Detected Reportable Range: Positive Results reported in ng/mL from 0.20 ng/mL to 20.00 ng/mL Positive Results above 20.00 ng/mL are reported as 'Above the Limit of Quantification' Cross-reactions occur with Blastomyces spp., Coccidioides spp., and Paracoccidioides brasiliensis. This test was developed and its performance characteristics determined by [employer]. It has not been cleared or approved by the FDA; however, FDA clearance or approval is not currently required for clinical use. The results are not intended to be used as the sole means for clinical diagnosis or patient management decisions. Test Performed by: [facility] [facility] [address] [place] [address] Performed By: #### T ACRO #### [facility] (DEFAULT) [address] [address] Histoplasma Antigen, FLUID Not detected Normal [facility] Comment on above: Performed By: #### T ACRO #### [facility] (DEFAULT) [address] [place] [address] HISTOPLASMA ANTIGEN,URINEon 09-02-2023 H. capsulatum Ag (U) [Mass/Vol] Not detected ng/mL [facility] H. capsulatum Ag IA Ql (U) Not detected Not Detected [facility] HISTOPLASMA CAPSULATUM/BLAST OMYCES SPECIES,PCR FLUIDon 09-02-2023 HISTO/BLASTO RESULT Negative Normal Not Applicable [facility] Comment on above: Result Comment: A Ne gative result from BAL fluid does not rule out the presence of Histoplasma capsulatum because the sensitivity from this source is suboptimal. ADDITIONAL INFORMATION This test was developed and its performance characteristics determined by [facility] in a manner consistent with CLIA requirements. This test has not been cleared or approved by the U.S. Food and Drug Administration. Test Performed by: [address] [address] Etl Developer: Rosendo Bose M.D. Ph.D.; CLIA# [id number] Performed By: #### T ACRO #### [facility] (DEFAULT) [address] [address] Source BAL RML Normal [facility] Comment on above: Performed By: #### T ACRO #### [facility] (DEFAULT) [address] [address] HIV 1 AND 2 ANTIBODIES/P24 A NTIGENOrdered By: Wilma Luque on 09-02-2023 HIV 1+2 Ab+HIV1 p24 Ag IA Ql Non-Reactive Non Reactive [facility] Interpretation and review of laboratory results Normal [facility] HIV 1 AND 2 ANTIBODIES/P24 A NTIGENon 09-02-2023 HIV-1/HIV-2 Ab With p24 Antigen Non-Reactive Normal Non Reactive [facility] Comment on above: Performed By: #### L [id number] ####[facility] (DEFAULT)[address] [address] LEGIONELLA CULTUREon 023 Bacteria identified Cx Nom (Unsp spec) NO GROWTH DAY 7 OF 7 Normal [facility] Comment on above: Performed By: #### H EMO #### [facility] (DEFAULT) [address] [place] [address] Bacteria identified Cx Nom (Unsp spec) NO GROWTH DAY 7 OF 7 Normal [facility] Comment on above: Order Comment: BAL l egionella culture Performed By: #### L EGN #### [facility] (DEFAULT) [address] [address] LEGIONELLA PCRon 09-02-2023 Legionella species, Culture BAL RML Normal [facility] Comment on above: Performed By: #### T ACRO #### [facility] (DEFAULT) [address] [address] Legionella, pcr result Negative Normal Not Applicable [facility] Comment on above: Result Comment: ADDITIONAL INFORMATION This test was developed and its performance characteristics determined by [facility] in a manner consistent with CLIA requirements. This test has not been cleared or approved by the U.S. Food and Drug Administration. Test Performed by: [facility] - [address] [address] Etl Developer: Rosendo Bose M.D. Ph.D.; CLIA# [id number] Performed By: #### T ACRO #### [facility] (DEFAULT) [address] [place] [address] LOWER RESPIRATORY CULTURE, B ACTERIALon 09-02-2023 Bacteria identified Cx Nom (Unsp spec) NO GROWTH DAY 2 OF 2 Normal [facility] Comment on above: Performed By: #### T ACRO #### [facility] (DEFAULT) [address] [address] Microscopic observation Gram stain Nom (Unsp spec) [facility] Comment on above: Result Comment: Cyto centrifuge preparation Neutrophils, Rare Red Blood Cells Present No organisms seen Performed By: #### T ACRO #### [facility] (DEFAULT) [address] [place] [address] Bacteria identified Cx Nom (Unsp spec) NO GROWTH DAY 2 OF 2 Normal [facility] Comment on above: Order Comment: BAL b acterial respiratory culture Performed By: #### H EMOGC #### [facility] (DEFAULT) [address] [place] [address] Microscopic observation Gram stain Nom (Unsp spec) Normal [facility] Comment on above: Order Comment: BAL b acterial respiratory culture Result Comment: Cyto centrifuge preparation Neutrophils, Moderate Red Blood Cells Present No organisms seen Performed By: #### H EMO #### [facility] (DEFAULT) [address] [place] [address] MAGNESIUMon 09-02-2023 Magnesium [Mass/Vol] 1.7 mg/dL Normal 1.6-2.6 [facility] Comment on above: Performed By: #### L EGN #### [facility] (DEFAULT) [address] [place] [address] Interpretation and review of laboratory results Normal [facility] Magnesium [Mass/Vol] 1.7 mg/dL 1.6 - 2 .6 mg/dL [facility] No Panel Informationon 09-02 Interpretation and review of laboratory results Abnormal [facility] PNEUMOCYSTIS JIROVECI,PCRon 09-02-2023 PN Report Status DNR Normal [facility] Comment on above: Performed By: #### T ACRO #### [facility] (DEFAULT) [address] [place] [address] PN Specimen Source BAL RML Normal [facility] Comment on above: Performed By: #### T ACRO #### [facility] (DEFAULT) [address] [place] [address] Pneum jiroveci comment DNR Normal [facility] Comment on above: Performed By: #### T ACRO #### [facility] (DEFAULT) [address] [address] Pneumocystis jiroveci,PCR result Negative Normal Not Applicable [facility] Comment on above: Result Comment: ADDITIONAL INFORMATION This test was developed and its performance characteristics determined by [facility] in a manner consistent with CLIA requirements. This test has not been cleared or approved by the U.S. Food and Drug Administration. Test Performed by: [facility] [place] [address] Etl Developer: Rosendo Bose M.D. Ph.D.; CLIA# [id number] Performed By: #### T ACRO #### [facility] (DEFAULT) [address] [address] PN Report Status DNR Normal [facility] Comment on above: Performed By: #### Y PNRP #### [facility] (DEFAULT) [address] [address] PN Specimen Source BAL LLL Normal [facility] Comment on above: Performed By: #### Y PNRP #### [facility] (DEFAULT) [address] [address] Pneum jiroveci comment DNR Normal [facility] Comment on above: Performed By: #### Y PNRP #### [facility] (DEFAULT) [address] [address] Pneumocystis jiroveci,PCR result Negative Normal Not Applicable [facility] Comment on above: Result Comment: ADDITIONAL INFORMATION This test was developed and its performance characteristics determined by [facility] in a manner consistent with CLIA requirements. This test has not been cleared or approved by the U.S. Food and Drug Administration. Test Performed by: [place] [address] Etl Developer: Rosendo Bose M.D. Ph.D.; [facility]# [id number] Performed By: #### Y [facility] #### [facility] (DEFAULT) [address] [address] TACROLIMUS LEVEL, TROUGH (MI E DRUG LEVEL)on 09-02-2023 Interpretation and review of laboratory results Normal [facility] Tacrolimus (Bld) [Mass/Vol] 4.2 ng/mL [facility] Tacrolimus, Trough 4.2 ng/mL Normal [facility] Transplant: 4.0-12.0, Therapeutic: 5.0-15.0 [facility] Comment on above: Order Comment: Pleas e draw at specified interval PRIOR to dose. Do not hold dose to wait for level. Specimens batched twice per day, (M-) and once per day weekends Method performed is a chemiluminescent microparticle immunoasssay on the [employer] i2000. The range is based on experience at [facility] and users should be aware that target concentrations vary widely depending on concomitant therapy, time post-transplant, and desired degree of immunosuppression. Performed By: #### T ACRO #### [facility] (DEFAULT) [address] [address] CBC,PLATELETSon 09-01-2023 Hematocrit (Bld) [Volume fraction] 38.9 % Low 39.6-48.8 [facility] Comment on above: Performed By: #### H [facility] #### [facility] (DEFAULT) [address] [address] Hemoglobin (Bld) [Mass/Vol] 12.7 g/dL Low 13.4-16.8 [facility] Comment on above: Performed By: #### H EMO #### [facility] (DEFAULT) [address] [address] MCV (RBC) [Entitic vol] 84.6 fL Normal 79.0-94.5 [facility] Comment on above: Performed By: #### H EMOGC #### [facility] (DEFAULT) [address] [place] [address] Mean Cell Hgb 27.6 pg Normal 26.1-33.3 [facility] Comment on above: Performed By: #### H EMOGC #### [facility] (DEFAULT) [address] [address] Mean Cell Hgb Conc 32.6 g/dL Normal 31.9-36.5 [facility] Comment on above: Performed By: #### H EMOGC #### [facility] (DEFAULT) [address] [place] [address] Platelet mean volume (Bld) [Entitic vol] 9.4 fL Normal 8.7-12.3 [facility] Comment on above: Performed By: #### H EMOGC #### [facility] (DEFAULT) [address] [address] Platelets (Bld) [#/Vol] 209 10*3/uL Normal 146-337 [facility] Comment on above: Performed By: #### H EMOGC #### [facility] (DEFAULT) [address] [address] RBC (Bld) [#/Vol] 4.60 10*6/uL Normal 4.38-5.83 [facility] Comment on above: Performed By: #### H EMOGC #### [facility] (DEFAULT) [address] [address] RBC Distribution 13.4 % Normal 10.9-14.3 [facility] Comment on above: Performed By: #### H EMOGC #### [facility] (DEFAULT) [address] [address] WBC (Bld) [#/Vol] 4.41 10*3/uL Normal 3.73-10.10 [facility] Comment on above: Performed By: #### H EMOGC #### [facility] (DEFAULT) [address] [address] Erythrocyte distribution width (RBC) [Ratio] 13.4 % 10.9 - 14.3 % [facility] Hematocrit (Bld) [Volume fraction] 38.9 % Low 39.6 - 48.8 % [facility] Hemoglobin (Bld) [Mass/Vol] 12.7 g/dL Low 13.4 - 16.8 g/dL [facility] Interpretation and review of laboratory results Abnormal [facility] MCH (RBC) [Entitic mass] 27.6 pg 26.1 - 33.3 pg [facility] MCHC (RBC) [Mass/Vol] 32.6 g/dL 31.9 - 36.5 g/dL [facility] MCV (RBC) [Entitic vol] 84.6 fL 79.0 - 94.5 fL [facility] Platelet mean volume (Bld) [Entitic vol] 9.4 fL 8.7 - 12.3 fL [facility] Platelets (Bld) [#/Vol] 209 10*3/uL 146 - 337 K/uL [facility] RBC (Bld) [#/Vol] 4.60 10*6/uL [facility] WBC (Bld) [#/Vol] 4.41 10*3/uL 3.73 - 10. 10 K/uL [facility] CHEM 7 (LYTES,BUN,CREA,GLUC) on 09-01-2023 Anion gap [Moles/Vol] 14 mmol/L Normal 7-17 [facility] Comment on above: Performed By: ###Walter UNDERWOOD #### [facility] (DEFAULT) [address] [place] [address] Chloride [Moles/Vol] 103 mmol/L Normal 98-108 [facility] Comment on above: Performed By: ###Walter UNDERWOOD #### [facility] (DEFAULT) [address] [place] [address] CO2 [Moles/Vol] 21 mmol/L Normal 21-31 [facility] Comment on above: Performed By: ###Walter UNDERWOOD #### [facility] (DEFAULT) [address] [place] [address] Creatinine [Mass/Vol] 1.16 mg/dL Normal 0.70-1.30 [facility] Comment on above: Performed By: #### Vale UNDERWOOD #### [facility] (DEFAULT) [address] [place] [address] GFR/1.73 sq M.predicted among non-blacks MDRD (S/P/Bld) [Vol rate/Area] 76 mL/min/{1.73_m2} Normal >=60 [facility] Comment on above: Result Comment: Repo rted eGFR is based on the CKD-EPI 2020 equation using creatinine, age, and sex. Performed By: ###Walter UNDERWOOD #### [facility] (DEFAULT) [address] [place] [address] Glucose [Mass/Vol] 117 mg/dL High 70-99 [facility] Comment on above: Performed By: #### Vale UNDERWOOD #### [facility] (DEFAULT) [address] [place] [address] Osmolality [Osmolality] 285 mosm/kg Normal 278-305 [facility] Comment on above: Performed By: ###Walter UNDERWOOD #### [facility] (DEFAULT) [address] [place] [address] Potassium [Moles/Vol] 4.2 mmol/L Normal 3.5-5.0 [facility] Comment on above: Performed By: #### Vale UNDERWOOD #### [facility] (DEFAULT) [address] [place] [address] Sodium [Moles/Vol] 134 mmol/L Low 135-145 [facility] Comment on above: Performed By: #### Vale UNDERWOOD #### [facility] (DEFAULT) [address] [place] [address] Urea nitrogen [Mass/Vol] 18 mg/dL Normal 7-25 [facility] Comment on above: Performed By: #### G YASMINE #### [facility] (DEFAULT) [address] [place] [address] Urea nitrogen/Creatinine [Mass ratio] 16 mg/mg Normal [facility] Comment on above: Performed By: #### G YASMINE #### [facility] (DEFAULT) [address] [place] [address] Anion gap [Moles/Vol] 14 mmol/L 7 - 17 mmol/L [facility] Chloride [Moles/Vol] 103 mmol/L 98 - 10 8 mmol/L [facility] CO2 [Moles/Vol] 21 mmol/L 21 - 31 mmol/L [facility] Creatinine [Mass/Vol] 1.16 mg/dL 0.70 - 1.30 mg/dL [facility] eGFR, CKD-EPI, Male 76 - PINF [facility] Glucose [Mass/Vol] 117 mg/dL High 70 - 99 mg/dL [facility] Osmolality Calc [Osmolality] 285 [facility] Potassium [Moles/Vol] 4.2 mmol/L 3.5 - 5.0 mmol/L [facility] Sodium [Moles/Vol] 134 mmol/L Low 135 - 145 mmol/L [facility] Urea nitrogen [Mass/Vol] 18 mg/dL 7 - 25 mg/dL [facility] Urea nitrogen/Creatinine [Mass ratio] 16 mg/mg [facility] CRYPTOCOCCAL ANTIGENon 09-01 Cryptococcus Antigen,Serum Negative Normal Negative [facility] Comment on above: Performed By: #### H EMO #### [facility] (DEFAULT) [address] [place] [address] Cryptococcus sp Ag Ql (S) Negative Negative [facility] Interpretation and review of laboratory results Normal [facility] HEPATIC FUNCTION PANELon Albumin [Mass/Vol] 3.3 g/dL Low 3.5-5.0 [facility] Comment on above: Performed By: #### C HM7, MGO, HFP ####[facility] (DEFAULT)[address] [place] [address] ALP [Catalytic activity/Vol] 112 U/L Normal 32-126 [facility] Comment on above: Performed By: #### C HM7, MGO, HFP ####[facility] (DEFAULT)[address] [place] [address] ALT [Catalytic activity/Vol] 21 U/L Normal 10-52 [facility] Comment on above: Performed By: #### C HM7, MGO, HFP ####[facility] (DEFAULT)[address] [place] [address] AST [Catalytic activity/Vol] 29 U/L Normal 10-39 [facility] Comment on above: Performed By: #### C HM7, MGO, HFP ####[facility] (DEFAULT)[address] [place] [address] Bilirubin [Mass/Vol] 1.0 mg/dL Normal <1.5 [facility] Comment on above: Performed By: #### C HM7, MGO, HFP ####[facility] (DEFAULT)[address] [place] [address] Bilirubin.indirect [Mass/Vol] 0.2 mg/dL Normal <0.3 [facility] Comment on above: Performed By: #### C HM7, MGO, HFP ####[facility] (DEFAULT)[address] [place] [address] Protein [Mass/Vol] 6.8 g/dL Normal 6.4-8.3 [facility] Comment on above: Performed By: #### C HM7, MGO, HFP ####[facility] (DEFAULT)[address] [place] [address] Albumin [Mass/Vol] 3.3 g/dL Low 3.5 - 5.0 g/dL [facility] ALP [Catalytic activity/Vol] 112 U/L 32 - 126 U/L [facility] ALT [Catalytic activity/Vol] 21 U/L 10 - 52 U/L [facility] AST [Catalytic activity/Vol] 29 U/L 10 - 39 U/L [facility] Bilirubin [Mass/Vol] 1.0 mg/dL NINF - 1.5 mg/dL [facility] Bilirubin.direct [Mass/Vol] 0.2 mg/dL NINF - 0.3 mg/dL [facility] Protein [Mass/Vol] 6.8 g/dL 6.4 - 8.3 g/dL [facility] L. pneumophila 1 Ag IA Ql (U )Ordered By: Carolin Miles on 09-01-2023 Interpretation and review of laboratory results Normal [facility] LEGIONELLA URINARY AGOrdered By: Carolin Miles on 09-01-2023 L. pneumophila 1 Ag IA Ql (U) Negative Negative [facility] MAGNESIUMon 09-01-2023 Magnesium [Mass/Vol] 1.6 mg/dL Normal 1.6-2.6 [facility] Comment on above: Performed By: #### G YASMINE #### [facility] (DEFAULT) [address] [place] [address] Interpretation and review of laboratory results Normal [facility] Magnesium [Mass/Vol] 1.6 mg/dL 1.6 - 2 .6 mg/dL [facility] No Panel Informationon 09-01 Interpretation and review of laboratory results Abnormal [facility] PARVOVIRUS (B19) DNA, PCR, B LOODon 09-01-2023 PARVOVIRUS B19 BY RAPID PCR Not detected Normal Not Detected [facility] Comment on above: Result Comment: The primers/probe used in this assay will detect parvovirus B19 and V9 (genotypes 1 # 3) but may not detect parvovirus genotype 2. The majority of circulating Parvovirus B19 strains in the [facility] are genotype 1. Genotype 2 is not believed to circulate widely in the [place], but has been associated with similar clinical features as genotype 1. Genotype 3 is most prevalent in some countries. This test was developed and its analytical performance characteristics have been determined by [employer] [place], [place]. It has not been cleared or approved by the FDA. This assay has been validated pursuant to the CLIA regulations and is used for clinical purposes. Test Performed at: [facility] [facility] [address] [place], [place] Ramon Benavides M.D., Ph.D.,Director of Laboratories Performed By: #### Vale UNDERWOOD #### [facility] (DEFAULT) [address] [place] [address] [place] SPEC SOURCE Whole Blood Normal [facility] Comment on above: Performed By: #### Vale UNDERWODO #### [facility] [facility] (DEFAULT) [address] [place] [id number] ASPERGILLUS (GALACTOMANNAN), ANTIGENon 08-31-2023 Aspergillus Antigen <0.500 Normal <0.5 [facility] Comment on above: Result Comment: ADDITIONAL INFORMATION This is a qualitative test and the resulted index value is not indicative of disease severity. Serial testing is recommended for patients at high risk for invasive aspergillosis. This assay was performed using the FDA-cleared [employer] Platelia Aspergillus Galactomannan EIA. Test Performed by: [address] [address] Etl Developer: Rosendo Bose M.D. Ph.D.; CLIA# [id number] Performed By: #### Y PNRP #### [facility] (DEFAULT) [address] [place] [address] 36176 CBC,PLATELETSon 08-31-2023 Hematocrit (Bld) [Volume fraction] 39.4 % Low 39.6-48.8 [facility] Comment on above: Performed By: #### T ACRO #### [facility] (DEFAULT) [address] [place] [address] 33531 Hemoglobin (Bld) [Mass/Vol] 12.8 g/dL Low 13.4-16.8 [facility] Comment on above: Performed By: #### T ACRO #### [facility] (DEFAULT) [address] [place] [address] 72205 MCV (RBC) [Entitic vol] 85.1 fL Normal 79.0-94.5 [facility] Comment on above: Performed By: #### T ACRO #### [facility] (DEFAULT) [address] [place] [address] 95557 Mean Cell Hgb 27.6 pg Normal 26.1-33.3 [facility] Comment on above: Performed By: #### T ACRO #### [facility] (DEFAULT) [address] [place] [address] 86144 Mean Cell Hgb Conc 32.5 g/dL Normal 31.9-36.5 [facility] Comment on above: Performed By: #### T ACRO #### [facility] (DEFAULT) [address] [place] [address] 38493 Platelet mean volume (Bld) [Entitic vol] 9.6 fL Normal 8.7-12.3 [facility] Comment on above: Performed By: #### T ACRO #### [facility] (DEFAULT) [address] [address] Platelets (Bld) [#/Vol] 228 10*3/uL Normal 146-337 [facility] Comment on above: Performed By: #### T ACRO #### [facility] (DEFAULT) [address] [place] [address] 77146 RBC (Bld) [#/Vol] 4.63 10*6/uL Normal 4.38-5.83 [facility] Comment on above: Performed By: #### T ACRO #### [facility] (DEFAULT) [address] [place] [address] 90515 RBC Distribution 13.3 % Normal 10.9-14.3 [facility] Comment on above: Performed By: #### T ACRO #### [facility] (DEFAULT) [address] [place] [address] WBC (Bld) [#/Vol] 4.77 10*3/uL Normal 3.73-10.10 [facility] Comment on above: Performed By: #### T ACRO #### [facility] (DEFAULT) [address] [place] [address] Erythrocyte distribution width (RBC) [Ratio] 13.3 % 10.9 - 14.3 % [facility] Hematocrit (Bld) [Volume fraction] 39.4 % Low 39.6 - 48.8 % [facility] Hemoglobin (Bld) [Mass/Vol] 12.8 g/dL Low 13.4 - 16.8 g/dL [facility] Interpretation and review of laboratory results Abnormal [facility] MCH (RBC) [Entitic mass] 27.6 pg 26.1 - 33.3 pg [facility] MCHC (RBC) [Mass/Vol] 32.5 g/dL 31.9 - 36.5 g/dL [facility] MCV (RBC) [Entitic vol] 85.1 fL 79.0 - 94.5 fL [facility] Platelet mean volume (Bld) [Entitic vol] 9.6 fL 8.7 - 12.3 fL [facility] Platelets (Bld) [#/Vol] 228 10*3/uL 146 - 337 K/uL [facility] RBC (Bld) [#/Vol] 4.63 10*6/uL [facility] WBC (Bld) [#/Vol] 4.77 10*3/uL 3.73 - 10. 10 K/uL [facility] CHEM 7 (LYTES,BUN,CREA,GLUC) on 08-31-2023 Anion gap [Moles/Vol] 13 mmol/L Normal 7-17 [facility] Comment on above: Performed By: #### T ACRO #### [facility] (DEFAULT) [address] [place] [address] 41777 Chloride [Moles/Vol] 102 mmol/L Normal 98-108 [facility] Comment on above: Performed By: #### T ACRO #### [facility] (DEFAULT) [address] [place] [address] 89837 CO2 [Moles/Vol] 23 mmol/L Normal 21-31 [facility] Comment on above: Performed By: #### T ACRO #### [facility] (DEFAULT) [address] [place] [address] 70691 Creatinine [Mass/Vol] 1.37 mg/dL High 0.70-1.30 [facility] Comment on above: Performed By: #### T ACRO #### [facility] (DEFAULT) [address] [place] [address] 66662 GFR/1.73 sq M.predicted among non-blacks MDRD (S/P/Bld) [Vol rate/Area] 62 mL/min/{1.73_m2} Normal >=60 [facility] Comment on above: Result Comment: Repo rted eGFR is based on the CKD-EPI 2020 equation using creatinine, age, and sex. Performed By: #### T ACRO #### [facility] (DEFAULT) [address] [place] [address] 58828 Glucose [Mass/Vol] 112 mg/dL High 70-99 [facility] Comment on above: Performed By: #### T ACRO #### [facility] (DEFAULT) [address] [place] [address] 23119 Osmolality [Osmolality] 284 mosm/kg Normal 278-305 [facility] Comment on above: Performed By: #### T ACRO #### [facility] (DEFAULT) [address] [place] [address] 09041 Potassium [Moles/Vol] 4.4 mmol/L Normal 3.5-5.0 [facility] Comment on above: Performed By: #### T ACRO #### [facility] (DEFAULT) [address] [place] [address] Sodium [Moles/Vol] 134 mmol/L Low 135-145 [facility] Comment on above: Performed By: #### T ACRO #### [facility] (DEFAULT) [address] [place] [address] Urea nitrogen [Mass/Vol] 16 mg/dL Normal 7-25 [facility] Comment on above: Performed By: #### T ACRO #### [facility] (DEFAULT) [address] [place] [address] Urea nitrogen/Creatinine [Mass ratio] 12 mg/mg Normal [facility] Comment on above: Performed By: #### T ACRO #### [facility] (DEFAULT) [address] [place] [address] Anion gap [Moles/Vol] 13 mmol/L 7 - 17 mmol/L [facility] Chloride [Moles/Vol] 102 mmol/L 98 - 10 8 mmol/L [facility] CO2 [Moles/Vol] 23 mmol/L 21 - 31 mmol/L [facility] Creatinine [Mass/Vol] 1.37 mg/dL High 0.70 - 1.30 mg/dL [facility] eGFR, CKD-EPI, Male 62 - PINF [facility] Glucose [Mass/Vol] 112 mg/dL High 70 - 99 mg/dL [facility] Osmolality Calc [Osmolality] 284 [facility] Potassium [Moles/Vol] 4.4 mmol/L 3.5 - 5.0 mmol/L [facility] Sodium [Moles/Vol] 134 mmol/L Low 135 - 145 mmol/L [facility] Urea nitrogen [Mass/Vol] 16 mg/dL 7 - 25 [facility]/Creatinine [facility]Mass ratio[facility]EN/PELVIS WITHOUT CO NTRASTon 08-31-2023 [...] Adrenals: Adrenal glands are unremarkable. Kidneys: The [place] kidneys are atrophic. No stones or hydronephrosis. No focal lesions noted within the [place] kidneys on this noncontrast study. Renovascular calcifications [...] have reviewed and approved this report. Normal [facility] CT Abdomen and Pelvis WO con traston 08-31-2023 RADIOLOGY RADIOLOGY [facility] Radiology Study observation (narrative) [facility] CT Abdomen and Pelvis WO con trastOrdered By: Chavez Larkin on 08-31-2023 [facility] Work Phone: CT CHEST WITHOUT CONTRASTon 08-31-2023 [...] likely reactive. 4. Coronary artery disease. Normal [facility] CT Chest WO contraston 08-31 RADIOLOGY RADIOLOGY [facility] Radiology Study observation (narrative) [facility] CT Chest WO contrastOrdered By: Daisha Patterson on 08-31-2023 [facility] Work Phone: FERRITINon 08-31-2023 Ferritin [Mass/Vol] 409.0 ng/mL High 10.5 - 3 07.3 ng/mL [facility] Interpretation and review of laboratory results Abnormal [facility] Ferritin [Mass/Vol] 409.0 ng/mL High 10.5-307.3 [facility] Comment on above: Performed By: #### T ACRO #### [facility] (DEFAULT) [address] [place] [address] 56262 HEPATIC FUNCTION PANELon Albumin [Mass/Vol] 3.3 g/dL Low 3.5-5.0 [facility] Comment on above: Performed By: #### T ACRO #### [facility] (DEFAULT) [address] [place] [address] 06644 ALP [Catalytic activity/Vol] 113 U/L Normal 32-126 [facility] Comment on above: Performed By: #### T ACRO #### [facility] (DEFAULT) [address] [place] [address] 46725 ALT [Catalytic activity/Vol] 25 U/L Normal 10-52 [facility] Comment on above: Performed By: #### T ACRO #### [facility] (DEFAULT) [address] [place] [address] 26439 AST [Catalytic activity/Vol] 31 U/L Normal 10-39 [facility] Comment on above: Performed By: #### T ACRO #### [facility] (DEFAULT) [address] [place] [address] 68432 Bilirubin [Mass/Vol] 1.1 mg/dL Normal <1.5 [facility] Comment on above: Performed By: #### T ACRO #### [facility] (DEFAULT) [address] [place] [address] 67350 Bilirubin.indirect [Mass/Vol] 0.3 mg/dL High <0.3 [facility] Comment on above: Performed By: #### T ACRO #### [facility] (DEFAULT) [address] [place] [address] Protein [Mass/Vol] 7.0 g/dL Normal 6.4-8.3 [facility] Comment on above: Performed By: #### T ACRO #### [facility] (DEFAULT) [address] [place] [address] 62560 Albumin [Mass/Vol] 3.3 g/dL Low 3.5 - 5.0 g/dL [facility] ALP [Catalytic activity/Vol] 113 U/L 32 - 126 U/L [facility] ALT [Catalytic activity/Vol] 25 U/L 10 - 52 U/L [facility] AST [Catalytic activity/Vol] 31 U/L 10 - 39 U/L [facility] Bilirubin [Mass/Vol] 1.1 mg/dL NINF - 1.5 mg/dL [facility] Bilirubin.direct [Mass/Vol] 0.3 mg/dL High NINF - 0.3 mg/dL [facility] Protein [Mass/Vol] 7.0 g/dL 6.4 - 8.3 g/dL [facility] LEGIONELLA URINARY AGon Legionella Urinary Antigen Negative Normal Negative [facility] Comment on above: Performed By: #### T ACRO #### [facility] (DEFAULT) [address] [place] [address] 36305 MAGNESIUMon 08-31-2023 Magnesium [Mass/Vol] 1.7 mg/dL Normal 1.6-2.6 [facility] Comment on above: Performed By: #### T ACRO #### [facility] (DEFAULT) [address] [place] [address] 64456 Interpretation and review of laboratory results Normal [facility] Magnesium [Mass/Vol] 1.7 mg/dL 1.6 - 2 .6 mg/dL [facility] No Panel Informationon 08-31 Interpretation and review of laboratory results Abnormal [facility] PROCALCITONINon 08-31-2023 Interpretation and review of laboratory results Normal [facility] Procalcitonin [Mass/Vol] 0.23 ng/mL NINF - 0.50 ng/mL [facility] Procalcitonin 0.23 ng/mL Normal <0.50 [facility] Comment on above: Result Comment: Proc [...] and trend procalcitonin in various clinical settings. [email or web address]?[email or web address]=/[email or web address]/[email or web address]/Documents/[email or web address]=[email or web address] Two common cutoffs associated with bacterial infections are as follows. Respiratory tract infections: >0.25 ng/mL Sepsis/septic shock: >0.5 ng/mL Procalcitonin should not be used alone as a diagnostic tool, however. All procalcitonin results should be interpreted in association with the patients clinical condition and all laboratory findings. Performed By: #### T ACRO #### [facility] (DEFAULT) [address] [place] [address] TACROLIMUS LEVEL, TROUGH (MI E DRUG LEVEL)Ordered By: Yanira Marcum on 08-31-2023 Interpretation and review of laboratory results Normal [facility] Tacrolimus (Bld) [Mass/Vol] 5.9 ng/mL [facility] TACROLIMUS LEVEL, TROUGH (MI E DRUG LEVEL)on 08-31-2023 Tacrolimus, Trough 5.9 ng/mL Normal [facility] ow Transplant: 4.0-12.0, Therapeutic: 5.0-15.0 [facility] Comment on above: Order Comment: Pleas e draw at specified interval PRIOR to dose. Do not hold dose to wait for level. Specimens batched twice per day, (M-F) and once per day weekendsMethod performed is a chemiluminescent microparticle immunoasssay on the [employer] i2000.The range is based on experience at [facility] and users should be aware that target concentrations vary widely depending on concomitant therapy, time post-transplant, and desired degree of immunosuppression. Performed By: #### T ACRO ####[facility] (DEFAULT)[address] [place] [address] 49093 URINE CULTUREOrdered By: Jorge crowe Held on 08-31-2023 Bacteria identified Cx Nom (Unsp spec) No Growth [facility] DARYL AURIS SCREEN BY PCRO rdered By: Mynor Alejandro on 08-30-2023 Daryl auris Screen by PCR Not detected Not Detected [facility] Interpretation and review of laboratory results Normal [facility] CBC,PLATELETSon 08-30-2023 Hematocrit (Bld) [Volume fraction] 41.3 % Normal 39.6-48.8 [facility] Comment on above: Performed By: #### G YASMINE #### [facility] (DEFAULT) [address] [place] [address] 64042 Hemoglobin (Bld) [Mass/Vol] 13.2 g/dL Low 13.4-16.8 [facility] Comment on above: Performed By: #### G YASMINE #### [facility] (DEFAULT) [address] [place] [address] 03174 MCV (RBC) [Entitic vol] 85.5 fL Normal 79.0-94.5 [facility] Comment on above: Performed By: #### G YASMINE #### [facility] (DEFAULT) [address] [place] [address] 95492 Mean Cell Hgb 27.3 pg Normal 26.1-33.3 [facility] Comment on above: Performed By: #### G YASMINE #### [facility] (DEFAULT) [address] [place] [address] 98059 Mean Cell Hgb Conc 32.0 g/dL Normal 31.9-36.5 [facility] Comment on above: Performed By: #### Vale UNDERWOOD #### [facility] (DEFAULT) [address] [place] [address] 76902 Platelet mean volume (Bld) [Entitic vol] 9.2 fL Normal 8.7-12.3 [facility] Comment on above: Performed By: #### Vale UNDERWOOD #### [facility] (DEFAULT) [address] [place] [address] 56834 Platelets (Bld) [#/Vol] 235 10*3/uL Normal 146-337 [facility] Comment on above: Performed By: #### Vale UNDERWOOD #### [facility] (DEFAULT) [address] [place] [address] 36043 RBC (Bld) [#/Vol] 4.83 10*6/uL Normal 4.38-5.83 [facility] Comment on above: Performed By: ###Walter UNDERWOOD #### [facility] (DEFAULT) [address] [place] [address] 76548 RBC Distribution 13.3 % Normal 10.9-14.3 [facility] Comment on above: Performed By: ###Walter UNDERWOOD #### [facility] (DEFAULT) [address] [place] [address] 61545 WBC (Bld) [#/Vol] 4.96 10*3/uL Normal 3.73-10.10 [facility] Comment on above: Performed By: ###Walter UNDERWOOD #### [facility] (DEFAULT) [address] [place] [address] 96223 Erythrocyte distribution width (RBC) [Ratio] 13.3 % 10.9 - 14.3 % [facility] Hematocrit (Bld) [Volume fraction] 41.3 % 39.6 - 48.8 % [facility] Hemoglobin (Bld) [Mass/Vol] 13.2 g/dL Low 13.4 - 16.8 g/dL [facility] Interpretation and review of laboratory results Abnormal [facility] MCH (RBC) [Entitic mass] 27.3 pg 26.1 - 33.3 pg [facility] MCHC (RBC) [Mass/Vol] 32.0 g/dL 31.9 - 36.5 g/dL [facility] MCV (RBC) [Entitic vol] 85.5 fL 79.0 - 94.5 fL [facility] Platelet mean volume (Bld) [Entitic vol] 9.2 fL 8.7 - 12.3 fL [facility] Platelets (Bld) [#/Vol] 235 10*3/uL 146 - 337 K/uL [facility] RBC (Bld) [#/Vol] 4.83 10*6/uL [facility] WBC (Bld) [#/Vol] 4.96 10*3/uL 3.73 - 10. 10 K/uL [facility] CHEM 7 (LYTES,BUN,CREA,GLUC) on 08-30-2023 Anion gap [Moles/Vol] 14 mmol/L Normal 7-17 [facility] Comment on above: Performed By: #### T ACRO #### [facility] (DEFAULT) [address] [place] [address] 48262 Chloride [Moles/Vol] 102 mmol/L Normal 98-108 [facility] Comment on above: Performed By: #### T ACRO #### [facility] (DEFAULT) [address] [place] [address] 50327 CO2 [Moles/Vol] 20 mmol/L Low 21-31 [facility] Comment on above: Performed By: #### T ACRO #### [facility] (DEFAULT) [address] [place] [address] 66620 Creatinine [Mass/Vol] 1.56 mg/dL High 0.70-1.30 [facility] Comment on above: Performed By: #### T ACRO #### [facility] (DEFAULT) [address] [place] [address] 64850 GFR/1.73 sq M.predicted among non-blacks MDRD (S/P/Bld) [Vol rate/Area] 53 mL/min/{1.73_m2} Low >=60 [facility] Comment on above: Result Comment: Repo rted eGFR is based on the CKD-EPI 2020 equation using creatinine, age, and sex. Performed By: #### T ACRO #### [facility] (DEFAULT) [address] [place] [address] 75719 Glucose [Mass/Vol] 123 mg/dL High 70-99 [facility] Comment on above: Performed By: #### T ACRO #### [facility] (DEFAULT) [address] [place] [address] 36120 Osmolality [Osmolality] 281 mosm/kg Normal 278-305 [facility] Comment on above: Performed By: #### T ACRO #### [facility] (DEFAULT) [address] [place] [address] 51155 Potassium [Moles/Vol] 4.3 mmol/L Normal 3.5-5.0 [facility] Comment on above: Performed By: #### T ACRO #### [facility] (DEFAULT) [address] [place] [address] 68423 Sodium [Moles/Vol] 132 mmol/L Low 135-145 [facility] Comment on above: Performed By: #### T ACRO #### [facility] (DEFAULT) [address] [place] [address] 01374 Urea nitrogen [Mass/Vol] 16 mg/dL Normal 7-25 [facility] Comment on above: Performed By: #### T ACRO #### [facility] (DEFAULT) [address] [place] [address] 18799 Urea nitrogen/Creatinine [Mass ratio] 10 mg/mg Normal [facility] Comment on above: Performed By: #### T ACRO #### [facility] (DEFAULT) [address] [place] [address] 61785 Anion gap [Moles/Vol] 14 mmol/L 7 - 17 mmol/L [facility] Chloride [Moles/Vol] 102 mmol/L 98 - 10 8 mmol/L [facility] CO2 [Moles/Vol] 20 mmol/L Low 21 - 31 mmol/L [facility] Creatinine [Mass/Vol] 1.56 mg/dL High 0.70 - 1.30 mg/dL [facility] eGFR, CKD-EPI, Male 53 Low - PINF [facility] Glucose [Mass/Vol] 123 mg/dL High 70 - 99 mg/dL [facility] Osmolality Calc [Osmolality] 281 [facility] Potassium [Moles/Vol] 4.3 mmol/L 3.5 - 5.0 mmol/L [facility] Sodium [Moles/Vol] 132 mmol/L Low 135 - 145 mmol/L [facility] Urea nitrogen [Mass/Vol] 16 mg/dL 7 - 25 mg/dL [facility] Urea nitrogen/Creatinine [Mass ratio] 10 mg/mg [facility] EXTRA MICROon 08-30-2023 [facility] HEPATIC FUNCTION PANELon Albumin [Mass/Vol] 3.7 g/dL Normal 3.5-5.0 [facility] Comment on above: Performed By: #### T ACRO #### [facility] (DEFAULT) [address] [place] [address] 96270 ALP [Catalytic activity/Vol] 115 U/L Normal 32-126 [facility] Comment on above: Performed By: #### T ACRO #### [facility] (DEFAULT) [address] [place] [address] ALT [Catalytic activity/Vol] 22 U/L Normal 10-52 [facility] Comment on above: Performed By: #### T ACRO #### [facility] (DEFAULT) [address] [place] [address] AST [Catalytic activity/Vol] 34 U/L Normal 10-39 [facility] Comment on above: Performed By: #### T ACRO #### [facility] (DEFAULT) [address] [place] [address] 56046 Bilirubin [Mass/Vol] 1.2 mg/dL Normal <1.5 [facility] Comment on above: Performed By: #### T ACRO #### [facility] (DEFAULT) [address] [place] [address] 59688 Bilirubin.indirect [Mass/Vol] 0.3 mg/dL High <0.3 [facility] Comment on above: Performed By: #### T ACRO #### [facility] (DEFAULT) [address] [place] [address] 41625 Protein [Mass/Vol] 7.7 g/dL Normal 6.4-8.3 [facility] Comment on above: Performed By: #### T ACRO #### [facility] (DEFAULT) [address] [place] [address] 59817 Albumin [Mass/Vol] 3.7 g/dL 3.5 - 5.0 g/dL [facility] ALP [Catalytic activity/Vol] 115 U/L 32 - 126 U/L [facility] ALT [Catalytic activity/Vol] 22 U/L 10 - 52 U/L [facility] AST [Catalytic activity/Vol] 34 U/L 10 - 39 U/L [facility] Bilirubin [Mass/Vol] 1.2 mg/dL [facility] mg/dL [facility] Bilirubin.direct [Mass/Vol] 0.3 mg/dL High NINF - 0.3 mg/dL [facility] Protein [Mass/Vol] 7.7 g/dL 6.4 - 8.3 g/dL [facility] MAGNESIUMon 08-30-2023 Magnesium [Mass/Vol] 1.8 mg/dL Normal 1.6-2.6 [facility] Comment on above: Performed By: #### T ACRO #### [facility] (DEFAULT) [address] [place] [address] 90203 Interpretation and review of laboratory results Normal [facility] Magnesium [Mass/Vol] 1.8 mg/dL 1.6 - 2 .6 mg/dL [facility] No Panel Informationon 08-30 Interpretation and review of laboratory results Abnormal [facility] CBC,PLATELETSon 08-29-2023 Hematocrit (Bld) [Volume fraction] 37.6 % Low 39.6-48.8 [facility] Comment on above: Performed By: #### H EMOGC #### [facility] (DEFAULT) [address] [place] [address] 38627 Hemoglobin (Bld) [Mass/Vol] 12.2 g/dL Low 13.4-16.8 [facility] Comment on above: Performed By: #### H EMOGC #### [facility] (DEFAULT) [address] [place] [address] 78451 MCV (RBC) [Entitic vol] 85.1 fL Normal 79.0-94.5 [facility] Comment on above: Performed By: #### H EMOGC #### [facility] (DEFAULT) [address] [place] [address] 97523 Mean Cell Hgb 27.6 pg Normal 26.1-33.3 [facility] Comment on above: Performed By: #### H EMOGC #### [facility] (DEFAULT) [address] [place] [address] 48065 Mean Cell Hgb Conc 32.4 g/dL Normal 31.9-36.5 [facility] Comment on above: Performed By: #### H EMOGC #### [facility] (DEFAULT) [address] [place] [address] 74889 Platelet mean volume (Bld) [Entitic vol] 9.4 fL Normal 8.7-12.3 [facility] Comment on above: Performed By: #### H EMOGC #### [facility] (DEFAULT) [address] [place] [address] 22585 Platelets (Bld) [#/Vol] 233 10*3/uL Normal 146-337 [facility] Comment on above: Performed By: #### H [facility] #### [facility] (DEFAULT) [address] [place] [address] 26730 RBC (Bld) [#/Vol] 4.42 10*6/uL Normal 4.38-5.83 [facility] Comment on above: Performed By: #### H EMO #### [facility] (DEFAULT) [address] [place] [address] 00725 RBC Distribution 13.4 % Normal 10.9-14.3 [facility] Comment on above: Performed By: #### H EMO #### [facility] (DEFAULT) [address] [place] [address] 01761 WBC (Bld) [#/Vol] 4.92 10*3/uL Normal 3.73-10.10 [facility] Comment on above: Performed By: #### [facility] #### [facility] (DEFAULT) [address] [place] [phone] Erythrocyte distribution width (RBC) [Ratio] 13.4 % 10.9 - 14.3 % [facility] Hematocrit (Bld) [Volume fraction] 37.6 % Low 39.6 - 48.8 % [facility] Hemoglobin (Bld) [Mass/Vol] 12.2 g/dL Low 13.4 - 16.8 g/dL [facility] Interpretation and review of laboratory results Abnormal [facility] MCH (RBC) [Entitic mass] 27.6 pg 26.1 - 33.3 pg [facility] MCHC (RBC) [Mass/Vol] 32.4 g/dL 31.9 - 36.5 g/dL [facility] MCV (RBC) [Entitic vol] 85.1 fL 79.0 - 94.5 fL [facility] Platelet mean volume (Bld) [Entitic vol] 9.4 fL 8.7 - 12.3 fL [facility] Platelets (Bld) [#/Vol] 233 10*3/uL 146 - 337 K/uL [facility] RBC (Bld) [#/Vol] 4.42 10*6/uL [facility] WBC (Bld) [#/Vol] 4.92 10*3/uL 3.73 - 10. 10 K/uL [facility] CHEM 7 (LYTES,BUN,CREA,GLUC) on 08-29-2023 Anion gap [Moles/Vol] 13 mmol/L Normal 7-17 [facility] Comment on above: Performed By: #### G YASMINE #### [facility] (DEFAULT) [address] [address] Chloride [Moles/Vol] 105 mmol/L Normal 98-108 [facility] Comment on above: Performed By: #### G YASMINE #### [facility] (DEFAULT) [address] [place] [address] 78495 CO2 [Moles/Vol] 20 mmol/L Low 21-31 [facility] Comment on above: Performed By: #### G YASMINE #### [facility] (DEFAULT) [address] [place] [address]446 Creatinine [Mass/Vol] 1.55 mg/dL High 0.70-1.30 [facility] Comment on above: Performed By: #### G YASMINE #### [facility] (DEFAULT) [address] [place] [address]647 GFR/1.73 sq M.predicted among non-blacks MDRD (S/P/Bld) [Vol rate/Area] 54 mL/min/{1.73_m2} Low >=60 [facility] Comment on above: Result Comment: Repo rted eGFR is based on the CKD-EPI 2020 equation using creatinine, age, and sex. Performed By: #### G YASMINE #### [facility] (DEFAULT) [address] [place] [address]23 Glucose [Mass/Vol] 108 mg/dL High 70-99 [facility] Comment on above: Performed By: #### G YASMINE #### [facility] (DEFAULT) [address] [place] [address]79 Osmolality [Osmolality] 283 mosm/kg Normal 278-305 [facility] Comment on above: Performed By: #### Vale UNDERWOOD #### [facility] (DEFAULT) [address] [place] [address] 60912 Potassium [Moles/Vol] 4.5 mmol/L Normal 3.5-5.0 [facility] Comment on above: Performed By: #### Vale UNDERWOOD #### [facility] (DEFAULT) [address] [place] [address]1517 Sodium [Moles/Vol] 133 mmol/L Low 135-145 [facility] Comment on above: Performed By: #### Vale UNDERWOOD #### [facility] (DEFAULT) [address] [place] [address] 22204 Urea nitrogen [Mass/Vol] 19 mg/dL Normal 7-25 [facility] Comment on above: Performed By: #### Vale UNDERWOOD #### [facility] (DEFAULT) [address] [place] [address] 20355 Urea nitrogen/Creatinine [Mass ratio] 12 mg/mg Normal [facility] Comment on above: Performed By: #### Vale UNDERWOOD #### [facility] (DEFAULT) [address] [place] [address] 80936 Anion gap [Moles/Vol] 13 mmol/L 7 - 17 mmol/L [facility] Chloride [Moles/Vol] 105 mmol/L 98 - 10 8 mmol/L [facility] CO2 [Moles/Vol] 20 mmol/L Low 21 - 31 mmol/L [facility] Creatinine [Mass/Vol] 1.55 mg/dL High 0.70 - 1.30 mg/dL [facility] eGFR, CKD-EPI, Male 55 Low - [facility] Glucose [Mass/Vol] 108 mg/dL High 70 - 99 mg/dL [facility] Osmolality Calc [Osmolality] 283 [facility] Potassium [Moles/Vol] 4.5 mmol/L 3.5 - 5.0 mmol/L [facility] Sodium [Moles/Vol] 133 mmol/L Low 135 - 145 mmol/L [facility] Urea nitrogen [Mass/Vol] 19 mg/dL 7 - 25 mg/dL [facility] Urea nitrogen/Creatinine [Mass ratio] 12 mg/mg [facility] GGTon 08-29-2023 Gamma glutamyl transferase [Catalytic activity/Vol] 64 U/L 8 - 64 U/L [facility] Interpretation and review of laboratory results Normal [facility] Gamma glutamyl transferase [Catalytic activity/Vol] 64 U/L Normal 8-64 [facility] Comment on above: Performed By: #### Vale UNDERWOOD #### [facility] (DEFAULT) [address] [place] [address]44 HEPATIC FUNCTION PANELon Albumin [Mass/Vol] 3.3 g/dL Low 3.5-5.0 [facility] Comment on above: Performed By: ###Walter UNDERWOOD #### [facility] (DEFAULT) [address] [place] [address] 01692 ALP [Catalytic activity/Vol] 103 U/L Normal 32-126 [facility] Comment on above: Performed By: #### Vale UNDERWOOD #### [facility] (DEFAULT) [address] [place] [address] 04857 ALT [Catalytic activity/Vol] 18 U/L Normal 10-52 [facility] Comment on above: Performed By: #### Vale UNDERWOOD #### [facility] (DEFAULT) [address] [place] [address] 76432 AST [Catalytic activity/Vol] 27 U/L Normal 10-39 [facility] Comment on above: Performed By: #### Vale UNDERWOOD #### [facility] (DEFAULT) [address] [place] [address] 15923 Bilirubin [Mass/Vol] 1.1 mg/dL Normal <1.5 [facility] Comment on above: Performed By: #### G YASMINE #### [facility] (DEFAULT) [address] [place] [address]33 Bilirubin.indirect [Mass/Vol] 0.3 mg/dL High <0.3 [facility] Comment on above: Performed By: #### G YASMINE #### [facility] (DEFAULT) [address] [place] [address] 33339 Protein [Mass/Vol] 6.8 g/dL Normal 6.4-8.3 [facility] Comment on above: Performed By: #### G YASMINE #### [facility] (DEFAULT) [address] [place] [address] 44014 Albumin [Mass/Vol] 3.3 g/dL Low 3.5 - 5.0 g/dL [facility] ALP [Catalytic activity/Vol] 103 U/L 32 - 126 U/L [facility] ALT [Catalytic activity/Vol] 18 U/L 10 - 52 U/L [facility] AST [Catalytic activity/Vol] 27 U/L 10 - 39 U/L [facility] Bilirubin [Mass/Vol] 1.1 mg/dL [facility]/dL [facility] Bilirubin.direct [Mass/Vol] 0.3 mg/dL High NINF - 0.3 mg/dL [facility] Protein [Mass/Vol] 6.8 g/dL 6.4 - 8.3 g/dL [facility] HISTOPLASMA AND BLASTOMYCES ANTIGEN, ENZYME IMMUNOASSAY, SERMon 08-29-2023 Histoplasma/Blastomyc es Ag Result Detected Invalid Interpretation Code Not Detected [facility] Comment on above: Result Comment: Anti gen from Histoplasma or Blastomyces (unable to differentiate) detected. Result should be correlated with clinical presentation, exposure history, and other diagnostic procedures, including culture, serology, histopathology, and/or radiographic findings, to aid in the differentiation between histoplasmosis and blastomycosis. CRITICAL RESULT Performed By: #### Y PNRP #### [facility] (DEFAULT) [address] [address] Histoplasma/Blastomyc es Ag Value 5.3 ng/mL Normal [facility] Comment on above: Result Comment: ADDITIONAL INFORMATION This test was developed and its performance characteristics determined by [facility] in a manner consistent with CLIA requirements. This test has not been cleared or approved by the U.S. Food and Drug Administration. Test Performed by: [facility] [place] [address] Etl Developer: Rosendo Bose M.D. Ph.D.; CLIA# [id number] Performed By: #### Y PNRP #### [facility] (DEFAULT) [address] [place] [address] HISTOPLASMA ANTIGEN,URINEon 08-29-2023 HISTOPLASM AG, URINE Not detected Normal Not Detected [facility] Comment on above: Result Comment: No H istoplasma antigen detected. False negative results may occur. Repeat testing on a new specimen should be considered if clinically indicated. Performed By: #### T ACRO #### [facility] [address] [place] [address] Histoplasma Ag Value Not detected Normal [facility] Comment on above: Result Comment: ADDITIONAL INFORMATION This test has been modified from the handtools repairer's instructions. Its performance characteristics were determined by [facility] in a manner consistent with CLIA requirements. This test has not been cleared or approved by the U.S. Food and Drug Administration. Test Performed by: [facility] [place] [address] Etl Developer: Rosendo Bose M.D. Ph.D.; CLIA# [id number] Performed By: #### T ACRO #### [facility] (DEFAULT) [address] [place] [address] 13286 MAGNESIUMon 08-29-2023 Magnesium [Mass/Vol] 1.7 mg/dL Normal 1.6-2.6 [facility] Comment on above: Performed By: #### G YASMINE #### [facility] (DEFAULT) [address] [place] [address] Interpretation and review of laboratory results Normal [facility] Magnesium [Mass/Vol] 1.7 mg/dL 1.6 - 2 .6 mg/dL [facility] No Panel Informationon 08-29 Interpretation and review of laboratory results Abnormal [facility] PT,INR,PTTon 08-29-2023 aPTT Coag (Bld) [Time] 29.3 s Normal 24.0-34.3 [facility] Comment on above: Performed By: #### L EGN #### [facility] (DEFAULT) [address] [place] [address]77 INR Coag (PPP) [Relative time] 1.1 {INR} Normal 0.9-1.1 [facility] Comment on above: Performed By: #### L EGN #### [facility] (DEFAULT) [address] [place] [address] PT Coag (PPP) [Time] 13.8 s Normal 11.9-14.2 [facility] Comment on above: Performed By: #### L EGN #### [facility] (DEFAULT) [address] [place] [address]16 aPTT Coag (PPP) [Time] 29.3 s [facility] INR Coag (Bld) [Relative time] 1.1 {INR} 0.9 - 1.1 [facility] Interpretation and review of laboratory results Normal [facility] PT Coag (PPP) [Time] 13.8 s [facility] Portable XR Chest Viewson RADIOLOGY RADIOLOGY [facility] Portable XR Chest ViewsOrder ed By: Gerald Baer on 08-29-2023 [facility] Work Phone: TACROLIMUS LEVEL, TROUGH (MI E DRUG LEVEL)on 08-29-2023 Interpretation and review of laboratory results Normal [facility] Tacrolimus (Bld) [Mass/Vol] 8.9 ng/mL [facility] Tacrolimus, Trough 8.9 ng/mL Normal [facility] Transplant: 4.0-12.0, Therapeutic: 5.0-15.0 [facility] Comment on above: Order Comment: Pleas e draw at specified interval PRIOR to dose. Do not hold dose to wait for level. Specimens batched twice per day, (M-F) and once per day weekendsMethod performed is a chemiluminescent microparticle immunoasssay on the [employer] i2000.The range is based on experience at [facility] and users should be aware that target concentrations vary widely depending on concomitant therapy, time post-transplant, and desired degree of immunosuppression. Performed By: #### H EMOGC #### [facility] (DEFAULT) [address] [address] Tacrolimus, Trough 8.7 ng/mL Normal [facility] Transplant: 4.0-12.0, Therapeutic: 5.0-15.0 [facility] Comment on above: Order Comment: Pleas e draw at specified interval PRIOR to dose. Do not hold dose to wait for level. Specimens batched twice per day, (M-F) and once per day weekends Method performed is a chemiluminescent microparticle immunoasssay on the [employer] i2000. The range is based on experience at [facility] and users should be aware that target concentrations vary widely depending on concomitant therapy, time post-transplant, and desired degree of immunosuppression. Performed By: #### T ACRO #### [facility] (DEFAULT) [address] [place] [address] TACROLIMUS LEVEL, TROUGH (MI E DRUG LEVEL)Ordered By: Roxanne Louie on 08-29-2023 Interpretation and review of laboratory results Normal [facility] Tacrolimus (Bld) [Mass/Vol] 8.7 ng[facility] URINALYSIS REFLEX TO CULTURE PERFORMABLEon 08-29-2023 Appearance (U) Clear Normal Clear [facility] Comment on above: Order Comment: Pleas e draw at specified interval PRIOR to dose. Do not hold dose to wait for level. Specimens batched twice per day, (M-F) and once per day weekends Method performed is a chemiluminescent microparticle immunoasssay on the [employer] i2000. The range is based on experience at [facility] and users should be aware that target concentrations vary widely depending on concomitant therapy, time post-transplant, and desired degree of immunosuppression. Performed By: #### T ACRO #### [facility] (DEFAULT) [address] [address] Bacteria ABSENT Normal ABSENT [facility] Comment on above: Order Comment: Pleas e draw at specified interval PRIOR to dose. Do not hold dose to wait for level. Specimens batched twice per day, (M-F) and once per day weekends Method performed is a chemiluminescent microparticle immunoasssay on the [employer] i[employer]. The range is based on experience at [facility] and users should be aware that target concentrations vary widely depending on concomitant therapy, time post-transplant, and desired degree of immunosuppression. Performed By: #### T ACRO #### [facility] (DEFAULT) [address] [address] Blood Urine Trace Abnormal Negative [facility] Comment on above: Order Comment: Pleas e draw at specified interval PRIOR to dose. Do not hold dose to wait for level. Specimens batched twice per day, (M-F) and once per day weekends Method performed is a chemiluminescent microparticle immunoasssay on the [employer] i2000. The range is based on experience at [facility] and users should be aware that target concentrations vary widely depending on concomitant therapy, time post-transplant, and desired degree of immunosuppression. Performed By: #### T ACRO #### [facility] (DEFAULT) [address] [address] Calcium Oxalate Crystals PRESENT Normal [facility] Comment on above: Order Comment: Pleas e draw at specified interval PRIOR to dose. Do not hold dose to wait for level. Specimens batched twice per day, (M-F) and once per day weekends Method performed is a chemiluminescent microparticle immunoasssay on the [employer] i[employer]. The range is based on experience at [facility] and users should be aware that target concentrations vary widely depending on concomitant therapy, time post-transplant, and desired degree of immunosuppression. Performed By: #### T ACRO #### [facility] [address] [address] Color (U) Yellow Normal Yellow [facility] Comment on above: Order Comment: Pleas e draw at specified interval PRIOR to dose. Do not hold dose to wait for level. Specimens batched twice per day, (M-F) and once per day weekends Method performed is a chemiluminescent microparticle immunoasssay on the [employer] i[employer]. The range is based on experience at [facility] and users should be aware that target concentrations vary widely depending on concomitant therapy, time post-transplant, and desired degree of immunosuppression. Performed By: #### T ACRO #### [facility] (DEFAULT) [address] [address] Glucose Ql (U) Negative Normal Negative [facility] Comment on above: Order Comment: Pleas e draw at specified interval PRIOR to dose. Do not hold dose to wait for level. Specimens batched twice per day, (M-F) and once per day weekends Method performed is a chemiluminescent microparticle immunoasssay on the [employer] i2000. The range is based on experience at [facility] and users should be aware that target concentrations vary widely depending on concomitant therapy, time post-transplant, and desired degree of immunosuppression. Performed By: #### T ACRO #### [facility] (DEFAULT) [address] [place] [address] Ketones Ql (U) Negative Normal Negative [facility] Comment on above: Order Comment: Pleas e draw at specified interval PRIOR to dose. Do not hold dose to wait for level. Specimens batched twice per day, (M-F) and once per day weekends Method performed is a chemiluminescent microparticle immunoasssay on the [employer] i2000. The range is based on experience at [facility] and users should be aware that target concentrations vary widely depending on concomitant therapy, time post-transplant, and desired degree of immunosuppression. Performed By: #### T ACRO #### [facility] [address] [place] [address] Leukocyte esterase Test strip Ql (U) Negative Normal Negative [facility] Comment on above: Order Comment: Pleas e draw at specified interval PRIOR to dose. Do not hold dose to wait for level. Specimens batched twice per day, (M-F) and once per day weekends Method performed is a chemiluminescent microparticle immunoasssay on the [employer] i[employer]. The range is based on experience at [facility] and users should be aware that target concentrations vary widely depending on concomitant therapy, time post-transplant, and desired degree of immunosuppression. Performed By: #### T ACRO #### [facility] [address] [place] [address] Nitrites Urine Negative Normal Negative [facility] Comment on above: Order Comment: Pleas e draw at specified interval PRIOR to dose. Do not hold dose to wait for level. Specimens batched twice per day, (M-F) and once per day weekends Method performed is a chemiluminescent microparticle immunoasssay on the [employer] i2000. The range is based on experience at [facility] and users should be aware that target concentrations vary widely depending on concomitant therapy, time post-transplant, and desired degree of immunosuppression. Performed By: #### T ACRO #### [facility] [address] [place] [address]57 pH (U) 6.0 [pH] Normal 5.0-7.0 [facility] Comment on above: Order Comment: Pleas e draw at specified interval PRIOR to dose. Do not hold dose to wait for level. Specimens batched twice per day, (M-F) and once per day weekends Method performed is a chemiluminescent microparticle immunoasssay on the [employer] i[employer]. The range is based on experience at [facility] and users should be aware that target concentrations vary widely depending on concomitant therapy, time post-transplant, and desired degree of immunosuppression. Performed By: #### T ACRO #### [facility] (DEFAULT) [address] [place] [address]30 Protein Urine Negative Normal Negative [facility] Comment on above: Order Comment: Pleas e draw at specified interval PRIOR to dose. Do not hold dose to wait for level. Specimens batched twice per day, (M-F) and once per day weekends Method performed is a chemiluminescent microparticle immunoasssay on the [employer] i2000. The range is based on experience at [facility] and users should be aware that target concentrations vary widely depending on concomitant therapy, time post-transplant, and desired degree of immunosuppression. Performed By: #### T ACRO #### [facility] [address] [place] [address] RBC Urine 3-5 Abnormal 0-2 [facility] Comment on above: Order Comment: Pleas e draw at specified interval PRIOR to dose. Do not hold dose to wait for level. Specimens batched twice per day, (M-F) and once per day weekends Method performed is a chemiluminescent microparticle immunoasssay on the [employer] i2000. The range is based on experience at [facility] and users should be aware that target concentrations vary widely depending on concomitant therapy, time post-transplant, and desired degree of immunosuppression. Performed By: #### T ACRO #### [facility] (DEFAULT) [address] [address] Specific [place] Urine 1.015 Normal 1.001-1.035 [facility] Comment on above: Order Comment: Pleas e draw at specified interval PRIOR to dose. Do not hold dose to wait for level. Specimens batched twice per day, (M-F) and once per day weekends Method performed is a chemiluminescent microparticle immunoasssay on the [employer] i2000. The range is based on experience at [facility] and users should be aware that target concentrations vary widely depending on concomitant therapy, time post-transplant, and desired degree of immunosuppression. Performed By: #### T ACRO #### [facility] (DEFAULT) [address] [place] [address] Squamous/Epithelial Cells 0-2/hpf Normal 0-2/hpf, 3-5/hpf = 1+ [facility] Comment on above: Order Comment: Pleas e draw at specified interval PRIOR to dose. Do not hold dose to wait for level. Specimens batched twice per day, (M-F) and once per day weekends Method performed is a chemiluminescent microparticle immunoasssay on the [employer] i2000. The range is based on experience at [facility] and users should be aware that target concentrations vary widely depending on concomitant therapy, time post-transplant, and desired degree of immunosuppression. Performed By: #### T ACRO #### [facility] (DEFAULT) [address] [address] Urobilinogen Urine 1.0 E.U./dL Normal 0.2 E.U/d L, 1.0 E.U/dL [facility] Comment on above: Order Comment: Pleas e draw at specified interval PRIOR to dose. Do not hold dose to wait for level. Specimens batched twice per day, (M-F) and once per day weekends Method performed is a chemiluminescent microparticle immunoasssay on the [employer] i2000. The range is based on experience at [facility] and users should be aware that target concentrations vary widely depending on concomitant therapy, time post-transplant, and desired degree of immunosuppression. Performed By: #### T ACRO #### [facility] (DEFAULT) [address] [place] [address] WBC Urine 0 - 5 Normal 0 - 5 [facility] Comment on above: Order Comment: Pleas e draw at specified interval PRIOR to dose. Do not hold dose to wait for level. Specimens batched twice per day, (M-F) and once per day weekends Method performed is a chemiluminescent microparticle immunoasssay on the [employer] i2000. The range is based on experience at [facility] and users should be aware that target concentrations vary widely depending on concomitant therapy, time post-transplant, and desired degree of immunosuppression. Performed By: #### T ACRO #### [facility] (DEFAULT) [address] [address] URINALYSIS REFLEX TO CULTURE PERFORMABLEOrdered By: Shaji Kelly on 09-30-2023 Appearance (U) Clear Clear [facility] Bacteria LM Ql (Urine sed) ABSENT ABSENT [facility] Calcium Oxalate Crystals PRESENT [facility] Color (U) Yellow Yellow [facility] Epithelial cells.squamous LM Ql (Urine sed) 0-2/hpf 0-2/hpf, 3-5/hpf = 1+ [facility] Glucose Test strip (U) [Mass/Vol] Negative Negative [facility] Interpretation and review of laboratory results Abnormal [facility] Ketones (U) [Mass/Vol] Negative Negative [facility] [facility] Leukocyte esterase Test strip Ql (U) Negative Negative [facility] Nitrite Ql (U) Negative Negative [facility] pH (U) 6.0 [pH] 5.0 - 7.0 [facility] Protein (U) [Mass/Vol] Negative Negative [facility] RBC (U) [#/Vol] Trace Abnormal Negative [facility] RBC LM.HPF (Urine sed) [#/Area] 3-5 Abnormal [facility] Specific gravity (U) [Rel density] 1.015 1.001 - 1.035 [facility] Urobilinogen (U) [Mass/Vol] 1.0 E.U./dL 0.2 E.U/dL, 1.0 E.U/dL [facility] WBC LM.HPF (Urine sed) [#/Area] 0 - 5 [facility] URINE CULTUREon 08-29-2023 Bacteria identified Cx Nom (U) No Growth Normal [facility] Comment on above: Order Comment: For i ndwelling catheters, specimen collection is acceptable on catheter day 1 and 2 only. Sung top vacutainer. Urine must be to the fill line to process (4mls). If minimum volume, send urine in a yellow top vacutainer tube. Performed By: #### [facility] #### [facility] (DEFAULT) [address] [place] [address] US RENAL TRANSPLANT SCANon 0 08-29-2023 US [...] have reviewed and approved this report. Normal [facility] US for transplanted kidney l imitedon 08-29-2023 RADIOLOGY RADIOLOGY [facility] Radiology Study observation (narrative) [facility] US for transplanted kidney l imitedOrdered By: Romana Myers on 08-29-2023 [facility] Work Phone: XR CHEST PORTABLEon 08-29-20 XR CHEST PORTABLE EXAM: XR CHEST PORTABLE, 08/28/2023 21:46 PM CLINICAL INDICATIONS: Fevers, cough RELEVANT CLINICAL HISTORY: COMPARISON: May 17, 2022 FINDINGS: Clear lungs. Prominent heart, unchanged. No pulmonary edema. Normal bones. IMPRESSION: Prominent heart without pulmonary edema. Clear lungs. Normal [facility] BLOOD CULTUREon 08-28-2023 Bacteria identified Cx Nom (Unsp spec) NO GROWTH DAY 5 OF 5 Normal [facility] Comment on above: Order Comment: 2 Bot tles (1 Set - consists of 1 Aerobic bottle and 1 Anaerobic bottle) -1st Peripheral DrawFor syringe method draw:If able to obtain adequate sample (20 ml) inoculate anaerobic bottle firstIf inadequate sample obtained (less than 20 ml) inoculate aerobic bottle firstFor vacutainer method draw: Fill aerobic bottle first, then anaerobic Performed By: #### [facility] #### [facility] (DEFAULT) [address] [place] [address] Bacteria identified Cx Nom (Unsp spec) NO GROWTH DAY 5 OF 5 Normal [facility] Comment on above: Order Comment: 2 Bot tles (1 Set - consists of 1 Aerobic bottle and 1 Anaerobic bottle) -1st Peripheral DrawFor syringe method draw:If able to obtain adequate sample (20 ml) inoculate anaerobic bottle firstIf inadequate sample obtained (less than 20 ml) inoculate aerobic bottle firstFor vacutainer method draw: Fill aerobic bottle first, then anaerobic Performed By: #### [facility] #### [facility] (DEFAULT) [address] [place] [address] DARYL AURIS SCREEN BY PCRo n 08-28-2023 Daryl auris Screen by PCR Not detected Normal Not Detected [facility] Comment on above: Order Comment: This test was performed using a real-time PCR assay. This test was developed, and its performance characteristics determined by [facility] at [facility]. It has not been cleared or approved by the FDA. The laboratory is regulated under CLIA as qualified to perform high-complexity testing. This test is used for clinical purposes. It should not be regarded as investigational or for research. Performed By: #### [facility] #### [facility] [address] [address] CBC AND ELECTRONIC DIFFon Abs Baso Auto < Normal 0.00-0.09 [facility] Comment on above: Performed By: #### Vale UNDERWOOD #### [facility] (DEFAULT) [address] [address] Basophils/100 WBC (Bld) 0.6 % Normal [facility] Comment on above: Performed By: #### Vale UNDERWOOD #### [facility] (DEFAULT) [address] [address] DIFF STATUS Electronic Differential Normal [facility] Comment on above: Performed By: #### Vale UNDERWOOD #### [facility] (DEFAULT) [address] [address] Eosinophils (Bld) [#/Vol] 0.10 10*3/uL Normal 0.00-0.48 [facility] Comment on above: Performed By: #### Vale UNDERWOOD #### [facility] (DEFAULT) [address] [address] Eosinophils/100 WBC (Bld) 2.1 % Normal [facility] Comment on above: Performed By: ###Walter UNDERWOOD #### [facility] (DEFAULT) [address] [address] Hematocrit (Bld) [Volume fraction] 37.9 % Low 39.6-48.8 [facility] Comment on above: Performed By: #### Vale UNDERWOOD #### [facility] (DEFAULT) [address] [address] Hemoglobin (Bld) [Mass/Vol] 12.4 g/dL Low 13.4-16.8 [facility] Comment on above: Performed By: #### Vale UNDERWOOD #### [facility] (DEFAULT) [address] [address] Immature Grans % 0.6 % Normal [facility] Comment on above: Performed By: #### Vale UNDERWOOD #### [facility] (DEFAULT) [address] [place] [address] Immature Grans Absolute < Normal <=0.07 [facility] Comment on above: Performed By: #### Vale UNDERWOOD #### [facility] (DEFAULT) [address] [place] [address] Lymphocytes (Bld) [#/Vol] 1.76 10*3/uL Normal 0.83-3.57 [facility] Comment on above: Performed By: #### G YASMINE #### [facility] (DEFAULT) [address] [place] [address] Lymphocytes/100 WBC (Bld) 37.1 % Normal [facility] Comment on above: Performed By: #### Vale UNDERWOOD #### [facility] (DEFAULT) [address] [place] [address] MCV (RBC) [Entitic vol] 85.0 fL Normal 79.0-94.5 [facility] Comment on above: Performed By: #### Vale UNDERWOOD #### [facility] (DEFAULT) [address] [address] Mean Cell Hgb 27.8 pg Normal 26.1-33.3 [facility] Comment on above: Performed By: #### Vale UNDERWOOD #### [facility] (DEFAULT) [address] [address] Mean Cell Hgb Conc 32.7 g/dL Normal 31.9-36.5 [facility] Comment on above: Performed By: #### Vale UNDERWOOD #### [facility] (DEFAULT) [address] [place] [address] Monocytes (Bld) [#/Vol] 0.66 10*3/uL Normal 0.24-0.93 [facility] Comment on above: Performed By: #### Vale ASAASHISH #### [facility] (DEFAULT) [address] [place] [address] Monocytes/100 WBC (Bld) 13.9 % Normal [facility] Comment on above: Performed By: #### Vale UNDERWOOD #### [facility] (DEFAULT) [address] [address] Nucleated RBC 0.0 /100 WBC Normal <=0.2 [facility] Comment on above: Performed By: #### Vale UNDERWOOD #### [facility] (DEFAULT) [address] [address] Platelet mean volume (Bld) [Entitic vol] 9.3 fL Normal 8.7-12.3 [facility] Comment on above: Performed By: #### Vale UNDERWOOD #### [facility] (DEFAULT) [address] [address] Platelets (Bld) [#/Vol] 262 10*3/uL Normal 146-337 [facility] Comment on above: Performed By: #### Vale UNDERWOOD #### [facility] (DEFAULT) [address] [address] RBC (Bld) [#/Vol] 4.46 10*6/uL Normal 4.38-5.83 [facility] Comment on above: Performed By: ###Walter UNDERWOOD #### [facility] (DEFAULT) [address] [address] RBC Distribution 13.4 % Normal 10.9-14.3 [facility] Comment on above: Performed By: #### Vale UNDERWOOD #### [facility] (DEFAULT) [address] [address] Segs + Bands Auto 45.7 % Normal [facility] Comment on above: Performed By: #### Vale UNDERWOOD #### [facility] (DEFAULT) [address] [address] Segs + Bands,Absolute Auto 2.16 K/uL Normal 1.57-6.19 [facility] Comment on above: Performed By: #### Vale UNDERWOOD #### [facility] (DEFAULT) [address] [place] [address] WBC (Bld) [#/Vol] 4.74 10*3/uL Normal 3.73-10.10 [facility] Comment on above: Performed By: #### G YASMINE #### [facility] (DEFAULT) [address] [place] [address] Basophils (Bld) [#/Vol] K/uL 0.00 - 0.09 K/uL [facility] Basophils/100 WBC (Bld) 0.6 % [facility] Differential cell count method Nom (Bld) Electronic Differential [facility] Eosinophils (Bld) [#/Vol] 0.10 10*3/uL 0.00 - 0.48 K/uL [facility] Eosinophils/100 WBC (Bld) 2.1 % [facility] Erythrocyte distribution width (RBC) [Ratio] 13.4 % 10.9 - 14.3 % [facility] Hematocrit (Bld) [Volume fraction] 37.9 % Low 39.6 - 48.8 % [facility] Hemoglobin (Bld) [Mass/Vol] 12.4 g/dL Low 13.4 - 16.8 g/dL [facility] Immature granulocytes (Bld) [#/Vol] K/uL NINF - 0.07 K/uL [facility] Immature granulocytes/100 WBC (Bld) 0.6 % [facility] Interpretation and review of laboratory results Abnormal [facility] Lymphocytes (Bld) [#/Vol] 1.76 10*3/uL 0.83 - 3.57 K/uL [facility] Lymphocytes/100 WBC (Bld) 37.1 % [facility] MCH (RBC) [Entitic mass] 27.8 pg 26.1 - 33.3 pg [facility] MCHC (RBC) [Mass/Vol] 32.7 g/dL 31.9 - 36.5 g/dL [facility] MCV (RBC) [Entitic vol] 85.0 fL 79.0 - 94.5 fL [facility] Monocytes (Bld) [#/Vol] 0.66 10*3/uL 0.24 - 0.93 K/uL [facility] Monocytes/100 WBC (Bld) 13.9 % [facility] Neutrophils (Bld) [#/Vol] 2.16 10*3/uL 1.57 - 6.19 K/uL [facility] Nucleated RBC/100 WBC (Bld) [Ratio] 0.0 % NINF [facility] Platelet mean volume (Bld) [Entitic vol] 9.3 fL 8.7 - 12.3 fL [facility] Platelets (Bld) [#/Vol] 262 10*3/uL 146 - 337 K/uL [facility] RBC (Bld) [#/Vol] 4.46 10*6/uL [facility] Segmented neutrophils/100 WBC (Bld) 45.7 % [facility] WBC (Bld) [#/Vol] 4.74 10*3/uL 3.73 - 10. 10 K/uL [facility] CHEM 6 (LYTES, BUN CREA)on 0 08-28-2023 Anion gap [Moles/Vol] 13 mmol/L Normal 7-17 [facility] Comment on above: Performed By: #### C HM6 #### [facility] (DEFAULT) [address] [place] [address] Chloride [Moles/Vol] 103 mmol/L Normal 98-108 [facility] Comment on above: Performed By: #### C HM6 #### [facility] (DEFAULT) [address] [place] [address] CO2 [Moles/Vol] 22 mmol/L Normal 21-31 [facility] Comment on above: Performed By: #### C HM6 #### [facility] (DEFAULT) [address] [place] [address] Creatinine [Mass/Vol] 1.62 mg/dL High 0.70-1.30 [facility] Comment on above: Performed By: #### C HM6 #### [facility] (DEFAULT) [address] [place] [address] GFR/1.73 sq M.predicted among non-blacks MDRD (S/P/Bld) [Vol rate/Area] 51 mL/min/{1.73_m2} Low >=60 [facility] Comment on above: Result Comment: Repo rted eGFR is based on the CKD-EPI 2020 equation using creatinine, age, and sex. Performed By: #### C HM6 #### [facility] (DEFAULT) [address] [place] [address] Potassium [Moles/Vol] 4.3 mmol/L Normal 3.5-5.0 [facility] Comment on above: Performed By: #### C HM6 #### [facility] (DEFAULT) [address] [place] [address] Sodium [Moles/Vol] 134 mmol/L Low 135-145 [facility] Comment on above: Performed By: #### C HM6 #### [facility] (DEFAULT) [address] [place] [address] Urea nitrogen [Mass/Vol] 22 mg/dL Normal 7-25 [facility] Comment on above: Performed By: #### C HM6 #### [facility] (DEFAULT) [address] [place] [address] Urea nitrogen/Creatinine [Mass ratio] 14 mg/mg Normal [facility] Comment on above: Performed By: #### C HM6 #### [facility] (DEFAULT) [address] [place] [address] Anion gap [Moles/Vol] 13 mmol/L 7 - 17 mmol/L [facility] Chloride [Moles/Vol] 103 mmol/L 98 - 10 8 mmol/L [facility] CO2 [Moles/Vol] 22 mmol/L 21 - 31 mmol/L [facility] Creatinine [Mass/Vol] 1.62 mg/dL High 0.70 - 1.30 mg/dL [facility] eGFR, CKD-EPI, Male 51 Low - PINF [facility] Interpretation and review of laboratory results Abnormal [facility] Potassium [Moles/Vol] 4.3 mmol/L 3.5 - 5.0 mmol/L [facility] Sodium [Moles/Vol] 134 mmol/L Low 135 - 145 mmol/L [facility] Urea nitrogen [Mass/Vol] 22 mg/dL 7 - 25 mg/dL [facility] Urea nitrogen/Creatinine [Mass ratio] 14 mg/[facility]MM[facility]PROM[facility] RESPIR[facility] Y PANELon 08-28-2023 Adenovirus - Pcr Not detected Normal Not Detected [facility] Comment on above: Order Comment: Viral [...] nucleic acid assay. Performed By: #### [facility] #### [facility] (DEFAULT) [address] [place] [address] Bordetella Parapertussis Not detected Normal Not Detected [facility] Comment on above: Order Comment: Viral [...] nucleic acid assay. Performed By: #### [facility] #### [facility] (DEFAULT) [address] [address] Bordetella Pertussis Not detected Normal Not Detected [facility] Comment on above: Order Comment: Viral [...] nucleic acid assay. Performed By: #### [facility] #### [facility] (DEFAULT) [address] [place] [address] Chlamydia Pneumoniae Not detected Normal Not Detected [facility] Comment on above: Order Comment: Viral [...] assay. Performed By: #### H EMO #### [facility] (DEFAULT) [address] [place] [address] Coronavirus 229E Not detected Normal Not Detected [facility] Comment on above: Order Comment: Viral [...] assay. Performed By: #### H EMOGC #### [facility] (DEFAULT) [address] [place] [address] Coronavirus Hku1 Not detected Normal Not Detected [facility] Comment on above: Order Comment: Viral [...] nucleic acid assay. Performed By: #### [facility] #### [facility] (DEFAULT) [address] [address] Coronavirus Nl63 Not detected Normal Not Detected [facility] Comment on above: Order Comment: Viral [...] nucleic acid assay. Performed By: #### [facility] #### [facility] (DEFAULT) [address] [place] [address] Coronavirus Oc43 Not detected Normal Not Detected [facility] Comment on above: Order Comment: Viral [...] assay. Performed By: #### H EMO #### [facility] (DEFAULT) [address] [address] Influenza A - Pcr Not detected Normal [...] nucleic acid assay. Performed By: #### [facility] #### [facility] (DEFAULT) [address] [place] [address] Influenza B - Pcr Not detected Normal Not Detected [facility] Comment on above: Order Comment: [...] nucleic acid assay. Performed By: #### [facility] #### [facility] (DEFAULT) [address] [place] [address] Metapneumovirus - Pcr Not detected Normal Not Detected [facility] Comment on above: Order Comment: Viral [...] nucleic acid assay. Performed By: #### [facility] #### [facility] (DEFAULT) [address] [place] [address] Mycoplasma Pneumoniae Not detected Normal Not Detected [facility] Comment on above: Order Comment: Viral [...] nucleic acid assay. Performed By: #### [facility] #### [facility] (DEFAULT) [address] [address] Parainfluenza 1 - Pcr Not detected Normal Not Detected [facility] Comment on above: Order Comment: Viral [...] nucleic acid assay. Performed By: #### [facility] #### [facility] (DEFAULT) [address] [address] Parainfluenza 2 - Pcr Not detected Normal Not Detected [facility] Comment on above: Order Comment: Viral [...] assay. Performed By: #### H EMO #### [facility] (DEFAULT) [address] [address] Parainfluenza 3 - Pcr Not detected Normal Not Detected [facility] Comment on above: Order Comment: Viral [...] nucleic acid assay. Performed By: #### [facility] #### [facility] (DEFAULT) [address] [address] Parainfluenza 4 - Pcr Not detected Normal Not Detected [facility] Comment on above: Order Comment: Viral [...] assay. Performed By: #### H EMO #### [facility] (DEFAULT) [address] [address] Rhinovirus/Enteroviru s - PCR Not detected Normal Not Detected [facility] Comment on above: Order Comment: Viral [...] assay. Performed By: #### H EMO #### [facility] (DEFAULT) [address] [address] Rsv - Pcr Not detected Normal Not Detected [facility] Comment on above: Order Comment: Viral [...] nucleic acid assay. Performed By: #### [facility] #### [facility] (DEFAULT) [address] [place] [address] SARS-CoV-2 (COVID-19) RNA ESTELITA+probe Ql (Unsp spec) Not detected Normal NOT DETECTED [facility] Comment on above: Order Comment: Viral [...] nucleic acid assay. Performed By: #### [facility] #### [facility] (DEFAULT) [address] [place] [address] Portable XR Chest [facility] Radiology Study observation (narrative) [facility] Respiratory virus DNA+RNA NA A+probe Nom (Unsp spec)Ordered By: Dayami Harris on 08-28-2023 Adenovirus DNA ESTELITA+probe Nom (Unsp spec) Not detected Not Detected [facility] B. parapertussis DNA ESTELITA+probe Ql (Unsp spec) Not detected Not Detected [facility] B. pertussis DNA ESTELITA+probe Ql (Unsp spec) Not detected Not Detected [facility] C. pneumoniae DNA ESTELITA+probe Ql (Unsp spec) Not detected Not Detected [facility] FLUAV RNA ESTELITA+probe Ql (Unsp spec) Not detected Not Detected [facility] FLUBV RNA ESTELITA+probe Ql (Unsp spec) Not detected Not Detected [facility] HCoV 229E RNA ESTELITA+non-probe Ql (Nph) Not detected Not Detected [facility] HCoV HKU1 RNA ESTELITA+non-probe Ql (Nph) Not detected Not Detected [facility] HCoV NL63 RNA ESTELITA+non-probe Ql (Nph) Not detected Not Detected [facility] HCoV OC43 RNA ESTELITA+non-probe Ql (Nph) Not detected Not Detected [facility] hMPV A RNA ESTELITA+probe Ql (Unsp spec) Not detected Not Detected [facility] Interpretation and review of laboratory results Normal [facility] M. pneumoniae DNA ESTELITA+probe Ql (Unsp spec) Not detected Not Detected [facility] Parainfluenza virus 1 RNA ESTELITA+probe Ql (Unsp spec) Not detected Not Detected [facility] Parainfluenza virus 2 RNA ESTELITA+probe Ql (Unsp spec) Not detected Not Detected [facility] Parainfluenza virus 3 RNA ESTELITA+probe Ql (Unsp spec) Not detected Not Detected [facility] Parainfluenza virus 4 RNA ESTELITA+probe Ql (Unsp spec) Not detected Not Detected [facility] Rhinovirus+Enteroviru s RNA ESTELITA+probe Ql (Unsp spec) Not detected Not Detected [facility] RSV RNA ESTELITA+probe Ql (Unsp spec) Not detected Not Detected [facility] SARS-CoV-2 (COVID-19) RNA ESTELITA+probe Ql (Unsp spec) Not detected NOT DETECTED [facility] ALB[facility] 04-28-2023 Albumin [Mass/Vol] 4.0 g/dL Normal 3.4-5.0 [facility] Comment on above: Performed By: #### C MP #### [facility] [address] [place] [address] Dr. Dwight Waters ALKALINE PHOSPHAon 05-30-202 3 ALP [Catalytic activity/Vol] 106 U/L Normal 46-116 [facility] Comment on above: Performed By: #### F [id number] #### [facility] [address] [place] [address] Dr. Dwight Waters BILIRUBIN CONJUGATED (DIRECT )on 04-28-2023 BILI, CONJUGATED 0.3 mg/dL Critically high 0.0-0.2 [facility] Comment on above: Performed By: #### C MP #### [facility] [address] [place] [address] Dr. Dwight Waters BILIRUBIN TOTALon 04-28-2023 Bilirubin [Mass/Vol] 1.4 mg/dL Critically high 0.2-1.0 [facility] Comment on above: Performed By: #### C MP #### [facility] [address] [place] [address] Dr. Dwight Waters BUNon 04-28-2023 Urea nitrogen [Mass/Vol] 12.0 mg/dL Normal 7.0-18.0 [facility] Comment on above: Performed By: #### U RTPCR #### [facility] [address] [place] [address] Dr. Dwight Waters CALCIUMon 04-28-2023 Calcium [Mass/Vol] 9.3 mg/dL Normal 8.5-10.1 [facility] Comment on above: Performed By: #### U RTPCR #### [facility] [address] [place] [address] Dr. Dwight Waters CBC AUTO DIFFon 04-28-2023 BASO # 0.1 103/ul Normal 0.0-0.1 [facility] Comment on above: Performed By: #### C BC #### [facility] [address] [place] [address] Dr. Dwight Waters Basophils/100 WBC (Bld) 0.9 % Normal 0.2-2.0 [facility] Comment on above: Performed By: #### C BC #### [facility] [address] [place] [address] Dr. Dwight Waters EO # 0.2 103/ul Normal 0.0-0.7 [facility] Comment on above: Performed By: #### C BC #### [facility] [address] [place] [address] Dr. Dwight Waters Eosinophils/100 WBC (Bld) 3.8 % Normal 0.9-7.0 [facility] Comment on above: Performed By: #### C BC #### [facility] [address] [place] [address] Dr. Dwight Waters Erythrocyte distribution width (RBC) [Ratio] 12.5 % Normal 11.0-15.0 [facility] Comment on above: Performed By: #### C BC #### [facility] [address] [place] [address] Dr. Dwight Waters Hematocrit (Bld) [Volume fraction] 49.8 % Normal 42.0-54.0 [facility] Comment on above: Performed By: #### C BC #### [facility] [address] [place] [address] Dr. Dwight Waters Hemoglobin (Bld) [Mass/Vol] 16.4 g/dL Normal 14.0-18.0 [facility] Comment on above: Performed By: #### C BC #### [facility] [address] [place] [address] Dr. Dwight Waters IG # 0.01 10e3/ul Normal 0.00-0.03 [facility] Comment on above: Performed By: #### C BC #### [facility] [address] [place] [address] Dr. Dwight Waters IG % 0.2 % Normal 0.0-0.5 [facility] Comment on above: Performed By: #### C BC #### [facility] [address] [place] [address] Dr. Dwight Waters LYMPH # 2.1 103/ul Normal 1.2-3.8 [facility] Comment on above: Performed By: #### C BC #### [facility] [address] [place] [address] Dr. Dwight Waters Lymphocytes/100 WBC (Bld) 39.1 % Normal 20.5-60.0 [facility] Comment on above: Performed By: #### C BC #### [facility] [address] [place] [address] Dr. Dwight Waters MANUAL DIFF REQ NO Normal [facility] Comment on above: Performed By: #### C BC #### [facility] [address] [place] [address] Dr. Dwight Waters MCH (RBC) [Entitic mass] 28.6 pg Normal 25.9-34.0 [facility] Comment on above: Performed By: #### C BC #### [facility] [address] [place] [address] Dr. Dwight Waters MCHC (RBC) [Mass/Vol] 32.9 g/dL Normal 29.9-35.2 [facility] Comment on above: Performed By: #### C BC #### [facility] [address] [place] [address] Dr. Dwight Waters MCV (RBC) [Entitic vol] 86.9 fL Normal 80.0-94.0 [facility] Comment on above: Performed By: #### C BC #### [facility] [address] [place] [address] Dr. Dwight Waters MONO # 0.6 103/ul Normal 0.3-0.8 [facility] Comment on above: Performed By: #### C BC #### [facility] [address] [place] [address] Dr. Dwight Waters Monocytes/100 WBC (Bld) 10.6 % Normal 1.7-12.0 [facility] Comment on above: Performed By: #### C BC #### [facility] [address] [place] [address] Dr. Dwight Waters NEUT # 2.5 103/ul Normal 1.4-6.5 [facility] Comment on above: Performed By: #### C BC #### [facility] [address] [place] [address] Dr. Dwight Waters Neutrophils/100 WBC (Bld) 45.4 % Normal 43.0-75.0 [facility] Comment on above: Performed By: #### C BC #### [facility] [address] [place] [address] Dr. Dwight Waters Platelet mean volume (Bld) [Entitic vol] 9.3 fL Critically low 9.5-13.5 [facility] Comment on above: Performed By: #### C BC #### [facility] [address] [place] [address] Dr. Dwight Waters PLT 248 103/ul Normal 150-450 [facility] Comment on above: Performed By: #### C BC #### [facility] [address] [place] [address] Dr. Dwight Waters RBC 5.73 106/ul Normal 4.70-6.10 [facility] Comment on above: Performed By: #### C BC #### [facility] [address] [place] [address] Dr. Dwight Waters WBC 5.5 103/ul Normal 4.0-11.0 [facility] Comment on above: Performed By: #### C BC #### [facility] [address] [place] [address] Dr. Dwight Waters CHLORIDEon 04-28-2023 Chloride [Moles/Vol] 107 mmol/L Normal 98-107 [facility] Comment on above: Performed By: #### U RTPCR #### [facility] [address] [place] [address] Dr. Dwight Waters CO2on 04-28-2023 CO2 [Moles/Vol] 28.9 mmol/L Normal 21.0-32.0 [facility] Comment on above: Performed By: #### U RTPCR #### [facility] [address] [place] [address] Dr. Dwight Waters CREATININEon 04-28-2023 Creatinine [Mass/Vol] 1.17 mg/dL Normal 0.70-1.30 [facility] Comment on above: Performed By: #### U RTPCR #### [facility] [address] [place] [address] Dr. Dwight Waters EGFR-AF BENINESE >60 Normal >=60 [facility] Comment on above: Performed By: #### U RTPCR #### [facility] [address] [place] [address] Dr. Dwight Waters EGFR-NON AF BENINESE >60 Normal >=60 [facility] Comment on above: Performed By: #### U RTPCR #### [facility] [address] [place] [address] Dr. Dwight Waters GGTon 04-28-2023 Gamma glutamyl transferase [Catalytic activity/Vol] 27 U/L Normal 15-85 [facility] Comment on above: Performed By: #### U RTPCR #### [facility] [address] [place] [address] Dr. Dwight Waters GLUCOSE BLOODon 04-28-2023 Glucose [Mass/Vol] 110 mg/dL Critically high 74-106 [facility] Comment on above: Performed By: #### U RTPCR #### [facility] [address] [place] [address] Dr. Dwight Waters MAGNESIUMon 04-28-2023 Magnesium [Mass/Vol] 1.7 mg/dL Critically low 1.8-2.4 [facility] Comment on above: Performed By: #### U RTPCR #### [facility] [address] [place] [address] Dr. Dwight Waters NAon 04-28-2023 Sodium [Moles/Vol] 144 mmol/L Normal 136-145 [facility] Comment on above: Performed By: #### U RTPCR #### [facility] [address] [place] [address] Dr. Dwight Waters PHOSPHORUSon 04-28-2023 Phosphate [Mass/Vol] 3.2 mg/dL Normal 2.6-4.7 [facility] Comment on above: Performed By: #### U RTPCR #### [facility] [address] [place] [address] Dr. Dwight Waters POTASSIUMon 04-28-2023 Potassium [Moles/Vol] 4.0 mmol/L Normal 3.5-5.1 [facility] Comment on above: Performed By: #### U RTPCR #### [facility] [address] [place] [address] Dr. Dwight Waters SGOTon 04-28-2023 AST [Catalytic activity/Vol] 25 U/L Normal 15-37 [facility] Comment on above: Performed By: #### C MP #### [facility] [address] [place] [address] Dr. Dwight Waters SGPTon 04-28-2023 ALT [Catalytic activity/Vol] 40 U/L Normal 16-63 [facility] Comment on above: Performed By: #### C MP #### [facility] [address] [place] [address] Dr. Dwight Waters URINE T PROTEIN CREAT RATIOo 04-28-2023 Protein (U) [Mass/Vol] 10.1 mg/dL Normal <=12.0 [facility] Comment on above: Performed By: #### U RTPCR #### [facility] [address] [place] [address] Dr. Dwight Waters UR PROT CREAT RAT 0.14 Normal [facility] Comment on above: Performed By: #### U RTPCR #### [facility] [address] [place] [address] Dr. Dwight Waters URINE CREAT 74.40 mg/dL Normal 20.00-300.00 [facility] Comment on above: Performed By: #### U RTPCR #### [facility] [address] [place] [address] Dr. Dwight Waters Office Visiton 04-13-2023 Follow-up visit [id number] George Styles 1970 M Date Provider Department Center 04/13/2023 MIGUEL PARADA [facility] Family History Problem Relation Age of Onset Coronary artery disease Mother Coronary artery disease Father Family Status - Relation Status Age at Mother Father Level of Service:63103 MI OFFICE/OUTPATIENT ESTABLISHED LOW MDM 20-29 MIN Reason for Visit and Comments: Hypertension [316533] Hyperlipidemia [182] Normal [facility] BK VIRUS PCR QUANTon 023 BKV DNA QUANT PCR PLASMA Negative Normal Negative [facility] Comment on above: Result Comment: No B K DNA detected. . The linear range of the assay is 22 - 100,000,000 IU/mL. Performed By: #### B KVIRUS #### [facility] [address] [place] [address] Dr. Dwight Waters Log10 BKV DNA Plasma Normal [facility] Comment on above: Performed By: #### B KVIRUS #### [facility] [address] [place] [address] Dr. Dwight Waters FK506 (TACROLIMUS) WHOLE BLO ODon 03-04-2023 Tacrolimus (FK506), Blood 5.9 ng/mL Normal 2.0-20.0 [facility] Comment on above: Result Comment: Trou gh (immediately following transplant) 15.0 . Trough (steady state, 2 weeks or more after transplant): 3.0 - 8.0 . Performed by LC-MS/MS technology. Performed By: #### C MP #### [facility] [address] [place] [address] Dr. Dwight Waters ALBUMINon 03-02-2023 Albumin [Mass/Vol] 3.9 g/dL Normal 3.4-5.0 [facility] Comment on above: Performed By: #### U RTPCR #### [facility] [address] [place] [address] Dr. Dwight Waters ALKALINE PHOSPHAon ALP [Catalytic activity/Vol] 105 U/L Normal 46-116 [facility] Comment on above: Performed By: #### U RTPCR #### [facility] [address] [place] [address] Dr. Dwight Waters BILIRUBIN CONJUGATED (DIRECT )on 03-02-2023 BILI, CONJUGATED 0.2 mg/dL Normal 0.0-0.2 [facility] Comment on above: Performed By: #### U RTPCR #### [facility] [address] [place] [address] Dr. Dwight Waters BILIRUBIN TOTALon 03-02-2023 Bilirubin [Mass/Vol] 0.9 mg/dL Normal 0.2-1.0 [facility] Comment on above: Performed By: #### U RTPCR #### [facility] [address] [place] [address] Dr. Dwight Waters CBC AUTO DIFFon 03-02-2023 BASO # 0.1 103/ul Normal 0.0-0.1 [facility] Comment on above: Performed By: #### C BC #### [facility] [address] [place] [address] Dr. Dwight Waters Basophils/100 WBC (Bld) 0.9 % Normal 0.2-2.0 [facility] Comment on above: Performed By: #### C BC #### [facility] [address] [place] [address] Dr. Dwight Waters EO # 0.2 103/ul Normal 0.0-0.7 [facility] Comment on above: Performed By: #### C BC #### [facility] [address] [place] [address] Dr. Dwight Waters Eosinophils/100 WBC (Bld) 3.5 % Normal 0.9-7.0 [facility] Comment on above: Performed By: #### C BC #### [facility] [address] [place] [address] Dr. Dwight Waters Erythrocyte distribution width (RBC) [Ratio] 12.7 % Normal 11.0-15.0 [facility] Comment on above: Performed By: #### C BC #### [facility] [address] [place] [address] Dr. Dwight Waters Hematocrit (Bld) [Volume fraction] 48.2 % Normal 42.0-54.0 [facility] Comment on above: Performed By: #### C BC #### [facility] [address] [place] [address] Dr. Dwight Waters Hemoglobin (Bld) [Mass/Vol] 15.9 g/dL Normal 14.0-18.0 [facility] Comment on above: Performed By: #### C BC #### [facility] [address] [place] [address] Dr. Dwight Waters IG # 0.01 10e3/ul Normal 0.00-0.03 [facility] Comment on above: Performed By: #### C BC #### [facility] [address] [place] [address] Dr. Dwight Waters IG % 0.2 % Normal 0.0-0.5 [facility] Comment on above: Performed By: #### C BC #### [facility] [address] [place] [address] Dr. Dwight Waters LYMPH # 2.1 103/ul Normal 1.2-3.8 [facility] Comment on above: Performed By: #### C BC #### [facility] [address] [place] [address] Dr. Dwight Waters Lymphocytes/100 WBC (Bld) 37.4 % Normal 20.5-60.0 [facility] Comment on above: Performed By: #### C BC #### [facility] [address] [place] [address] Dr. Dwight Waters MANUAL DIFF REQ NO Normal [facility] Comment on above: Performed By: #### C BC #### [facility] [address] [place] [address] Dr. Dwight Waters MCH (RBC) [Entitic mass] 28.3 pg Normal 25.9-34.0 [facility] Comment on above: Performed By: #### C BC #### [facility] [address] [place] [address] Dr. Dwight Waters MCHC (RBC) [Mass/Vol] 33.0 g/dL Normal 29.9-35.2 [facility] Comment on above: Performed By: #### C BC #### [facility] [address] [place] [address] Dr. Dwight Waters MCV (RBC) [Entitic vol] 85.8 fL Normal 80.0-94.0 [facility] Comment on above: Performed By: #### C BC #### [facility] [address] [place] [address] Dr. Dwight Waters MONO # 0.6 103/ul Normal 0.3-0.8 [facility] Comment on above: Performed By: #### C BC #### [facility] [address] [place] [address] Dr. Dwight Waters Monocytes/100 WBC (Bld) 10.2 % Normal 1.7-12.0 [facility] Comment on above: Performed By: #### C BC #### [facility] [address] [place] [address] Dr. Dwight Waters NEUT # 2.7 103/ul Normal 1.4-6.5 [facility] Comment on above: Performed By: #### C BC #### [facility] [address] [place] [address] Dr. Dwight Waters Neutrophils/100 WBC (Bld) 47.8 % Normal 43.0-75.0 [facility] Comment on above: Performed By: #### C BC #### [facility] [address] [place] [address] Dr. Dwight Waters Platelet mean volume (Bld) [Entitic vol] 9.3 fL Critically low 9.5-13.5 [facility] Comment on above: Performed By: #### C BC #### [facility] [address] [place] [address] Dr. Dwight Waters PLT 241 103/ul Normal 150-450 [facility] Comment on above: Performed By: #### C BC #### [facility] [address] [place] [address] Dr. Dwight Waters RBC 5.62 106/ul Normal 4.70-6.10 [facility] Comment on above: Performed By: #### C BC #### [facility] [address] [place] [address] Dr. Dwight Waters WBC 5.7 103/ul Normal 4.0-11.0 [facility] Comment on above: Performed By: #### C BC #### [facility] [address] [place] [address] Dr. Dwight Waters GGTon 03-02-2023 Gamma glutamyl transferase [Catalytic activity/Vol] 25 U/L Normal 15-85 [facility] Comment on above: Performed By: #### U RTPCR #### [facility] [address] [place] [address] Dr. Dwight Waters MAGNESIUMon 04-03-2023 Magnesium [Mass/Vol] 1.6 mg/dL Critically low 1.8-2.4 [facility] Comment on above: Performed By: #### U RTPCR #### [facility] [address] [place] [address] Dr. Dwight Waters PHOSPHORUSon 03-02-2023 Phosphate [Mass/Vol] 3.6 mg/dL Normal 2.6-4.7 [facility] Comment on above: Performed By: #### U RTPCR #### [facility] [address] [place] [address] Dr. Dwight Waters PROF CHEM 8 (BAS METB)on Anion gap [Moles/Vol] 9.4 mmol/L Normal [facility] Comment on above: Performed By: #### U RTPCR #### [facility] [address] [place] [address] Dr. Dwight Waters Calcium [Mass/Vol] 9.3 mg/dL Normal 8.5-10.1 [facility] Comment on above: Performed By: #### U RTPCR #### [facility] [address] [place] [address] Dr. Dwight Waters Chloride [Moles/Vol] 108 mmol/L Critically high 98-107 [facility] Comment on above: Performed By: #### U RTPCR #### [facility] [address] [place] [address] Dr. Dwight Waters CO2 [Moles/Vol] 27.2 mmol/L Normal 21.0-32.0 [facility] Comment on above: Performed By: #### U RTPCR #### [facility] [address] [place] [address] Dr. Dwight Waters Creatinine [Mass/Vol] 1.12 mg/dL Normal 0.70-1.30 [facility] Comment on above: Performed By: #### U RTPCR #### [facility] [address] [place] [address] Dr. Dwight Waters EGFR-AF BENINESE >60 Normal >=60 [facility] Comment on above: Performed By: #### U RTPCR #### [facility] [address] [place] [address] Dr. Dwight Waters EGFR-NON AF BENINESE >60 Normal >=60 [facility] Comment on above: Performed By: #### U RTPCR #### [facility] [address] [address] [address] Dwight Waters Glucose [Mass/Vol] 113 mg/dL Critically high 74-106 [facility] Comment on above: Performed By: #### U RTPCR #### [facility] [address] [address] [address] Dwight Waters Potassium [Moles/Vol] 3.6 mmol/L Normal 3.5-5.1 [facility] Comment on above: Performed By: #### U RTPCR #### [facility] [address] [place] [address] Dr. Dwight Waters Sodium [Moles/Vol] 141 mmol/L Normal 136-145 [facility] Comment on above: Performed By: #### U RTPCR #### [facility] [address] [place] [address] Dr. Dwight Waters Urea nitrogen [Mass/Vol] 14.0 mg/dL Normal 7.0-18.0 [facility] Comment on above: Performed By: #### U RTPCR #### [facility] [address] [place] [address] Dr. Dwight Waters Urea nitrogen/Creatinine [Mass ratio] 12.5 mg/mg Normal [facility] Comment on above: Performed By: #### U RTPCR #### [facility] [address] [place] [address] Dr. Dwight Waters SGOTon 03-02-2023 AST [Catalytic activity/Vol] 20 U/L Normal 15-37 [facility] Comment on above: Performed By: #### U RTPCR #### [facility] [address] [place] [address] Dr. Dwight Waters SGPTon 03-02-2023 ALT [Catalytic activity/Vol] 30 U/L Normal 16-63 [facility] Comment on above: Performed By: #### U RTPCR #### [facility] [address] [place] [address] Dr. Dwight Waters URINE T PROTEIN CREAT RATIOo n 03-02-2023 Protein (U) [Mass/Vol] 10.3 mg/dL Normal <=12.0 [facility] Comment on above: Performed By: #### U RTPCR #### [facility] [address] [place] [address] Dr. Dwight Waters UR PROT CREAT RAT 0.15 Normal [facility] Comment on above: Performed By: #### U RTPCR #### [facility] [address] [place] [address] Dr. Dwight Waters URINE CREAT 68.96 mg/dL Normal 20.00-300.00 [facility] Comment on above: Performed By: #### U RTPCR #### [facility] [address] [place] [address] Dr. Dwight Waters BK VIRUS PCR QUANTon 023 BKV DNA QUANT PCR PLASMA Negative Normal Negative [facility] Comment on above: Result Comment: No B K DNA detected. . The linear range of the assay is 22 - 100,000,000 IU/mL. Performed By: #### C MP #### [facility] [address] [place] [address] Dr. Dwight Waters Log10 BKV DNA Plasma Normal [facility] Comment on above: Performed By: #### C MP #### [facility] [address] [place] [address] Dr. Dwight Waters FK506 (TACROLIMUS) WHOLE BLO ODon 12-31-2022 Tacrolimus (FK506), Blood 5.6 ng/mL Normal 2.0-20.0 [facility] Comment on above: Result Comment: Trou gh (immediately following transplant) 15.0 . Trough (steady state, 2 weeks or more after transplant): 3.0 - 8.0 . Performed by LC-MS/MS technology. Performed By: #### C MP #### [facility] [address] [place] [address] Dr. Dwight Waters ALKALINE PHOSPHAon ALP [Catalytic activity/Vol] 96 U/L Normal 46-116 [facility] Comment on above: Performed By: #### C BC #### [facility] [address] [place] [address] Dr. Dwight Waters BILIRUBIN CONJUGATED (DIRECT )on 12-29-2022 BILI, CONJUGATED 0.3 mg/dL Critically high 0.0-0.2 [facility] Comment on above: Performed By: #### C BC #### [facility] [address] [place] [address] Dr. Dwight Waters BILIRUBIN TOTALon 12-29-2022 Bilirubin [Mass/Vol] 1.1 mg/dL Critically high 0.2-1.0 [facility] Comment on above: Performed By: #### C BC #### [facility] [address] [place] [address] Dr. Dwight Waters CBC AUTO DIFFon 12-29-2022 BASO # 0.1 103/ul Normal 0.0-0.1 [facility] Comment on above: Performed By: #### C MP #### [facility] [address] [place] [address] Dr. Dwight Waters Basophils/100 WBC (Bld) 0.8 % Normal 0.2-2.0 [facility] Comment on above: Performed By: #### C MP #### [facility] [address] [place] [address] Dr. Dwight Waters EO # 0.2 103/ul Normal 0.0-0.7 [facility] Comment on above: Performed By: #### C MP #### [facility] [address] [place] [address] Dr. Dwight Waters Eosinophils/100 WBC (Bld) 3.0 % Normal 0.9-7.0 [facility] Comment on above: Performed By: #### C MP #### [facility] [address] [place] [address] Dr. Dwight Waters Erythrocyte distribution width (RBC) [Ratio] 12.9 % Normal 11.0-15.0 [facility] Comment on above: Performed By: #### C MP #### [facility] [address] [place] [address] Dr. Dwight Waters Hematocrit (Bld) [Volume fraction] 46.9 % Normal 42.0-54.0 [facility] Comment on above: Performed By: #### C MP #### [facility] [address] [place] [address] Dr. Dwight Waters Hemoglobin (Bld) [Mass/Vol] 16.1 g/dL Normal 14.0-18.0 [facility] Comment on above: Performed By: #### C MP #### [facility] [address] [place] [address] Dr. Dwight Waters IG # 0.01 10e3/ul Normal 0.00-0.03 [facility] Comment on above: Performed By: #### C MP #### [facility] [address] [place] [address] Dr. Dwight Waters IG % 0.2 % Normal 0.0-0.5 [facility] Comment on above: Performed By: #### C MP #### [facility] [address] [place] [address] Dr. Dwight Waters LYMPH # 1.8 103/ul Normal 1.2-3.8 [facility] Comment on above: Performed By: #### C MP #### [facility] [address] [place] [address] Dr. Dwight Waters Lymphocytes/100 WBC (Bld) 27.9 % Normal 20.5-60.0 [facility] Comment on above: Performed By: #### C MP #### [facility] [address] [place] [address] Dr. Dwight Waters MANUAL DIFF REQ NO Normal [facility] Comment on above: Performed By: #### C MP #### [facility] [address] [place] [address] Dr. Dwight Waters MCH (RBC) [Entitic mass] 28.5 pg Normal 25.9-34.0 [facility] Comment on above: Performed By: #### C MP #### [facility] [address] [place] [address] Dr. Dwight Waters MCHC (RBC) [Mass/Vol] 34.3 g/dL Normal 29.9-35.2 [facility] Comment on above: Performed By: #### C MP #### [facility] [address] [place] [address] Dr. Dwight Waters MCV (RBC) [Entitic vol] 83.2 fL Normal 80.0-94.0 [facility] Comment on above: Performed By: #### C MP #### [facility] [address] [place] [address] Dr. Dwight Waters MONO # 0.5 103/ul Normal 0.3-0.8 [facility] Comment on above: Performed By: #### C MP #### [facility] [address] [place] [address] Dr. Dwight Waters Monocytes/100 WBC (Bld) 8.1 % Normal 1.7-12.0 [facility] Comment on above: Performed By: #### C MP #### [facility] [address] [place] [address] Dr. Dwight Waters NEUT # 3.8 103/ul Normal 1.4-6.5 [facility] Comment on above: Performed By: #### C MP #### [facility] [address] [place] [address] Dr. Dwight Waters Neutrophils/100 WBC (Bld) 60.0 % Normal 43.0-75.0 [facility] Comment on above: Performed By: #### C MP #### [facility] [address] [place] [address] Dr. Dwight Waters Platelet mean volume (Bld) [Entitic vol] 9.2 fL Critically low 9.5-13.5 [facility] Comment on above: Performed By: #### C MP #### [facility] [address] [place] [address] Dr. Dwight Waters PLT 225 103/ul Normal 150-450 [facility] Comment on above: Performed By: #### C MP #### [facility] [address] [place] [address] Dr. Dwight Waters RBC 5.64 106/ul Normal 4.70-6.10 [facility] Comment on above: Performed By: #### C MP #### [facility] [address] [address] [address] Dwight Waters WBC 6.3 103/ul Normal 4.0-11.0 [facility] Comment on above: Performed By: #### C MP #### [facility] [address] [address] [address] Dwight Waters GGTon 12-29-2022 Gamma glutamyl transferase [Catalytic activity/Vol] 24 U/L Normal 15-85 [facility] Comment on above: Performed By: #### C MP #### [facility] [address] [address] [address] Dwight Waters LIPID PROFILEon 12-29-2022 CHOL-HDL RATIO NORM SEE BELOW Normal [facility] Comment on above: Result Comment: 3.3 - 4.4 LOW RISK 4.4 - 7.1 AVERAGE RISK 7.1 - 11.0 MODERATE RISK >11.0 HIGH RISK Performed By: #### U RTPCR #### [facility] [address] [place] [address] Dr. Dwight Waters Cholesterol [Mass/Vol] 87 mg/dL Normal <=200 [facility] Comment on above: Performed By: #### U RTPCR #### [facility] [address] [place] [address] Dr. Dwight Waters Cholesterol in HDL [Mass/Vol] 44 mg/dL Normal 40-60 [facility] Comment on above: Performed By: #### U RTPCR #### [facility] [address] [address] [address] Dwight Waters Cholesterol in LDL [Mass/Vol] 33.0 mg/dL Normal [facility] Comment on above: Performed By: #### U RTPCR #### [facility] [address] [place] [address] Dr. Dwight Waters Cholesterol.total/Cho lesterol in HDL [Mass ratio] 2.0 {ratio} Normal [facility] Comment on above: Performed By: #### U RTPCR #### [facility] [address] [place] [address] Dr. Dwight Waters HDL NORMAL > or = 60 mg/dl - LO W CARDIOVASCULAR RISK <40 mg/dl - HIGH CARDIOVASCULAR RISK Normal [facility] Comment on above: Performed By: #### U RTPCR #### [facility] [address] [address] [address] Dwight Waters LDL CALC NORMAL SEE BELOW Normal [facility] Comment on above: Result Comment: <100 mg/dl OPTIMAL 100 - 129 mg/dl NEAR OR ABOVE OPTIMAL 130 - 159 mg/dl BORDERLINE HIGH 160 - 189 mg/dl HIGH >190 mg/dl VERY HIGH Performed By: #### U RTPCR #### [facility] [address] [address] [address] Dwight Waters Triglyceride [Mass/Vol] 50 mg/dL Normal <=150 [facility] Comment on above: Performed By: #### U RTPCR #### [facility] [address] [address] [address] Dwight Waters VLDL CALC 10.0 mg/dL Normal [facility] Comment on above: Performed By: #### U RTPCR #### [facility] [address] [address] [address] Dwight Waters MAGNESIUMon 12-29-2022 Magnesium [Mass/Vol] 1.6 mg/dL Critically low 1.8-2.4 [facility] Comment on above: Performed By: #### C BC #### [facility] [address] [address] [address] Dwight Waters RENAL FUNCTION PANELon 12-29 Albumin [Mass/Vol] 3.9 g/dL Normal 3.4-5.0 [facility] Comment on above: Performed By: #### C BC #### [facility] [address] [address] [address] Dwight Waters Calcium [Mass/Vol] 9.2 mg/dL Normal 8.5-10.1 [facility] Comment on above: Performed By: #### C BC #### [facility] [address] [address] [address] Dwight Waters Chloride [Moles/Vol] 109 mmol/L Critically high 98-107 [facility] Comment on above: Performed By: #### C BC #### [facility] [address] [address] [address] Dwight Waters CO2 [Moles/Vol] 27.0 mmol/L Normal 21.0-32.0 [facility] Comment on above: Performed By: #### C BC #### [facility] [address] [address] [address] Dwight Waters Creatinine [Mass/Vol] 1.02 mg/dL Normal 0.70-1.30 [facility] Comment on above: Performed By: #### C BC #### [facility] [address] [address] [address] Dwight Waters EGFR-AF BENINESE >60 Normal >=60 [facility] Comment on above: Performed By: #### C BC #### [facility] [address] [place] [address] Dr. Dwight Waters EGFR-NON AF BENINESE >60 Normal >=60 [facility] Comment on above: Performed By: #### C BC #### [facility] [address] [address] [address] Dwight Waters Glucose [Mass/Vol] 117 mg/dL Critically high 74-106 [facility] Comment on above: Performed By: #### C BC #### [facility] [address] [place] [address] Dr. Dwight Waters Phosphate [Mass/Vol] 3.2 mg/dL Normal 2.6-4.7 [facility] Comment on above: Performed By: #### C BC #### [facility] [address] [place] [address] Dr. Dwight Waters Potassium [Moles/Vol] 4.1 mmol/L Normal 3.5-5.1 [facility] Comment on above: Performed By: #### C BC #### [facility] [address] [address] [address] Dwight Waters Sodium [Moles/Vol] 144 mmol/L Normal 136-145 [facility] Comment on above: Performed By: #### C BC #### [facility] [address] [place] [address] Dr. Dwight Waters Urea nitrogen [Mass/Vol] 13.0 mg/dL Normal 7.0-18.0 [facility] Comment on above: Performed By: #### C BC #### [facility] [address] [place] [address] Dr. Dwight Waters SGOTon 12-29-2022 AST [Catalytic activity/Vol] 21 U/L Normal 15-37 [facility] Comment on above: Performed By: #### C BC #### [facility] [address] [place] [address] Dr. Dwight Waters SGPTon 12-29-2022 ALT [Catalytic activity/Vol] 32 U/L Normal 16-63 [facility] Comment on above: Performed By: #### C BC #### [facility] [address] [place] [address] Dr. Dwight Waters URINE T PROTEIN CREAT RATIOo n 12-29-2022 Protein (U) [Mass/Vol] 14.3 mg/dL Critically high <=12.0 [facility] Comment on above: Performed By: #### U RTPCR #### [facility] [address] [place] [address] Dr. Dwight Waters UR PROT CREAT RAT 0.17 Normal [facility] Comment on above: Performed By: #### U RTPCR #### [facility] [address] [place] [address] Dr. Dwight Waters URINE CREAT 86.58 mg/dL Normal 20.00-300.00 [facility] Comment on above: Performed By: #### U RTPCR #### [facility] [address] [place] [address] Dr. Dwight Waters FK506 (TACROLIMUS) WHOLE BLO ODon 11-06-2022 Tacrolimus (FK506), Blood 4.9 ng/mL Normal 2.0-20.0 [facility] Comment on above: Result Comment: Trou gh (immediately following transplant) 15.0 . Trough (steady state, 2 weeks or more after transplant): 3.0 - 8.0 . Performed by LC-MS/MS technology. Performed By: #### U RTPCR #### [facility] [address] [place] [address] Dr. Dwight Waters ALKALINE PHOSPHAon ALP [Catalytic activity/Vol] 86 U/L Normal 46-116 [facility] Comment on above: Performed By: #### U RTPCR #### [facility] [address] [place] [address] Dr. Dwight Waters BILIRUBIN CONJUGATED (DIRECT )on 11-04-2022 BILI, CONJUGATED 0.2 mg/dL Normal 0.0-0.2 [facility] Comment on above: Performed By: #### U RTPCR #### [facility] [address] [place] [address] Dr. Dwight Waters BILIRUBIN TOTALon 11-04-2022 Bilirubin [Mass/Vol] 0.8 mg/dL Normal 0.2-1.0 [facility] Comment on above: Performed By: #### U RTPCR #### [facility] [address] [place] [address] Dr. Dwight Waters CBC AUTO DIFFon 11-04-2022 BASO # 0.1 103/ul Normal 0.0-0.1 [facility] Comment on above: Performed By: #### U RTPCR #### [facility] [address] [place] [address] Dr. Dwight Waters Basophils/100 WBC (Bld) 0.9 % Normal 0.2-2.0 [facility] Comment on above: Performed By: #### U RTPCR #### [facility] [address] [place] [address] Dr. Dwight Waters EO # 0.2 103/ul Normal 0.0-0.7 [facility] Comment on above: Performed By: #### U RTPCR #### [facility] [address] [place] [address] Dr. Dwight Waters Eosinophils/100 WBC (Bld) 3.7 % Normal 0.9-7.0 [facility] Comment on above: Performed By: #### U RTPCR #### [facility] [address] [place] [address] Dr. Dwight Waters Erythrocyte distribution width (RBC) [Ratio] 12.9 % Normal 11.0-15.0 [facility] Comment on above: Performed By: #### U RTPCR #### [facility] [address] [place] [address] Dr. Dwight Waters Hematocrit (Bld) [Volume fraction] 48.3 % Normal 42.0-54.0 [facility] Comment on above: Performed By: #### U RTPCR #### [facility] [address] [place] [address] Dr. Dwight Waters Hemoglobin (Bld) [Mass/Vol] 15.6 g/dL Normal 14.0-18.0 [facility] Comment on above: Performed By: #### U RTPCR #### [facility] [address] [place] [address] Dr. Dwight Waters IG # 0.01 10e3/ul Normal 0.00-0.03 [facility] Comment on above: Performed By: #### U RTPCR #### [facility] [address] [place] [address] Dr. Dwight Waters IG % 0.2 % Normal 0.0-0.5 [facility] Comment on above: Performed By: #### U RTPCR #### [facility] [address] [place] [address] Dr. Dwight Waters LYMPH # 1.9 103/ul Normal 1.2-3.8 [facility] Comment on above: Performed By: #### U RTPCR #### [facility] [address] [place] [address] Dr. Dwight Waters Lymphocytes/100 WBC (Bld) 33.0 % Normal 20.5-60.0 [facility] Comment on above: Performed By: #### U RTPCR #### [facility] [address] [place] [address] Dr. Dwight Waters MANUAL DIFF REQ NO Normal [facility] Comment on above: Performed By: #### U RTPCR #### [facility] [address] [place] [address] Dr. Dwight Waters MCH (RBC) [Entitic mass] 27.6 pg Normal 25.9-34.0 [facility] Comment on above: Performed By: #### U RTPCR #### [facility] [address] [address] [address] Dwight Waters MCHC (RBC) [Mass/Vol] 32.3 g/dL Normal 29.9-35.2 [facility] Comment on above: Performed By: #### U RTPCR #### [facility] [address] [address] [address] Dwight Waters MCV (RBC) [Entitic vol] 85.5 fL Normal 80.0-94.0 [facility] Comment on above: Performed By: #### U RTPCR #### [facility] [address] [place] [address] Dr. Dwight Waters MONO # 0.5 103/ul Normal 0.3-0.8 [facility] Comment on above: Performed By: #### U RTPCR #### [facility] [address] [place] [address] Dr. Dwight Waters Monocytes/100 WBC (Bld) 8.8 % Normal 1.7-12.0 [facility] Comment on above: Performed By: #### U RTPCR #### [facility] [address] [place] [address] Dr. Dwight Waters NEUT # 3.1 103/ul Normal 1.4-6.5 [facility] Comment on above: Performed By: #### U RTPCR #### [facility] [address] [place] [address] Dr. Dwight Waters Neutrophils/100 WBC (Bld) 53.4 % Normal 43.0-75.0 [facility] Comment on above: Performed By: #### U RTPCR #### [facility] [address] [place] [address] Dr. Dwight Waters Platelet mean volume (Bld) [Entitic vol] 9.2 fL Critically low 9.5-13.5 [facility] Comment on above: Performed By: #### U RTPCR #### [facility] [address] [address] [address] Dwight Waters PLT 255 103/ul Normal 150-450 [facility] Comment on above: Performed By: #### U RTPCR #### [facility] [address] [place] [address] Dr. Dwight Waters RBC 5.65 106/ul Normal 4.70-6.10 [facility] Comment on above: Performed By: #### U RTPCR #### [facility] [address] [place] [address] Dr. Dwight Waters WBC 5.7 103/ul Normal 4.0-11.0 [facility] Comment on above: Performed By: #### U RTPCR #### [facility] [address] [place] [address] Dr. Dwight Waters GGTon 11-04-2022 Gamma glutamyl transferase [Catalytic activity/Vol] 22 U/L Normal 15-85 [facility] Comment on above: Performed By: #### U RTPCR #### [facility] [address] [place] [address] Dr. Dwight Waters MAGNESIUMon 11-04-2022 Magnesium [Mass/Vol] 1.8 mg/dL Normal 1.8-2.4 [facility] Comment on above: Performed By: #### U RTPCR #### [facility] [address] [place] [address] Dr. Dwight Waters RENAL FUNCTION PANELon 11-04 Albumin [Mass/Vol] 3.8 g/dL Normal 3.4-5.0 [facility] Comment on above: Performed By: #### U RTPCR #### [facility] [address] [place] [address] Dr. Dwight Waters Calcium [Mass/Vol] 9.3 mg/dL Normal 8.5-10.1 [facility] Comment on above: Performed By: #### U RTPCR #### [facility] [address] [place] [address] Dr. Dwight Waters Chloride [Moles/Vol] 107 mmol/L Normal 98-107 [facility] Comment on above: Performed By: #### U RTPCR #### [facility] [address] [address] [address] Dwight Waters CO2 [Moles/Vol] 29.2 mmol/L Normal 21.0-32.0 [facility] Comment on above: Performed By: #### U RTPCR #### [facility] [address] [address] [address] Dwight Waters Creatinine [Mass/Vol] 1.07 mg/dL Normal 0.70-1.30 [facility] Comment on above: Performed By: #### U RTPCR #### [facility] [address] [place] [address] Dr. Dwight Waters EGFR-AF BENINESE >60 Normal >=60 [facility] Comment on above: Performed By: #### U RTPCR #### [facility] [address] [place] [address] Dr. Dwight Waters EGFR-NON AF BENINESE >60 Normal >=60 [facility] Comment on above: Performed By: #### U RTPCR #### [facility] [address] [place] [address] Dr. Dwight Waters Glucose [Mass/Vol] 106 mg/dL Normal 74-106 [facility] Comment on above: Performed By: #### U RTPCR #### [facility] [address] [place] [address] Dr. Dwight Waters Phosphate [Mass/Vol] 2.8 mg/dL Normal 2.6-4.7 [facility] Comment on above: Performed By: #### U RTPCR #### [facility] [address] [place] [address] Dr. Dwight Waters Potassium [Moles/Vol] 4.1 mmol/L Normal 3.5-5.1 [facility] Comment on above: Performed By: #### U RTPCR #### [facility] [address] [place] [address] Dr. Dwight Waters Sodium [Moles/Vol] 143 mmol/L Normal 136-145 [facility] Comment on above: Performed By: #### U RTPCR #### [facility] [address] [place] [address] Dr. Dwight Waters Urea nitrogen [Mass/Vol] 12.0 mg/dL Normal 7.0-18.0 [facility] Comment on above: Performed By: #### U RTPCR #### [facility] [address] [place] [address] Dr. Dwight Waters SGOTon 11-04-2022 AST [Catalytic activity/Vol] 19 U/L Normal 15-37 [facility] Comment on above: Performed By: #### U RTPCR #### [facility] [address] [place] [address] Dr. Dwight Waters SGPTon 11-04-2022 ALT [Catalytic activity/Vol] 28 U/L Normal 16-63 [facility] Comment on above: Performed By: #### U RTPCR #### [facility] [address] [place] [address] Dr. Dwight Waters URINE T PROTEIN CREAT RATIOo n 11-04-2022 Protein (U) [Mass/Vol] 10.7 mg/dL Normal <=12.0 [facility] Comment on above: Performed By: #### U RTPCR #### [facility] [address] [place] [address] Dr. Dwight Waters UR PROT CREAT RAT 0.13 Normal [facility] Comment on above: Performed By: #### U RTPCR #### [facility] [address] [place] [address] Dr. Dwight Waters URINE CREAT 84.50 mg/dL Normal 20.00-300.00 [facility] Comment on above: Performed By: #### U RTPCR #### [facility] [address] [place] [address] Dr. Dwight Waters FK506 (TACROLIMUS) WHOLE BLO ODon 09-18-2022 Tacrolimus (FK506), Blood 4.6 ng/mL Normal 2.0-20.0 [facility] Comment on above: Result Comment: Trou gh (immediately following transplant) 15.0 . Trough (steady state, 2 weeks or more after transplant): 3.0 - 8.0 . Performed by LC-MS/MS technology. Performed By: #### U RTPCR #### [facility] [address] [place] [address] Dr. Dwight Waters BK VIRUS PCR QUANTon 022 BKV DNA QUANT PCR PLASMA Negative Normal Negative [facility] Comment on above: Result Comment: No B K DNA detected. . The linear range of the assay is 22 - 100,000,000 IU/mL. Performed By: #### U RTPCR #### [facility] [address] [place] [address] Dr. Dwight Waters Log10 BKV DNA Plasma Normal [facility] Comment on above: Performed By: #### U RTPCR #### [facility] [address] [place] [address] Dr. Dwight Waters ALKALINE PHOSPHAon ALP [Catalytic activity/Vol] 92 U/L Normal 46-116 [facility] Comment on above: Performed By: #### U RTPCR #### [facility] [address] [place] [address] Dr. Dwight Waters BILIRUBIN CONJUGATED (DIRECT )on 09-15-2022 BILI, CONJUGATED 0.3 mg/dL Critically high 0.0-0.2 [facility] Comment on above: Performed By: #### U RTPCR #### [facility] [address] [place] [address] Dr. Dwight Waters BILIRUBIN TOTALon 09-15-2022 Bilirubin [Mass/Vol] 1.1 mg/dL Critically high 0.2-1.0 [facility] Comment on above: Performed By: #### U RTPCR #### [facility] [address] [place] [address] Dr. Dwight Waters CBC AUTO DIFFon 09-15-2022 BASO # 0.1 103/ul Normal 0.0-0.1 [facility] Comment on above: Performed By: #### C BC #### [facility] [address] [place] [address] Dr. Dwight Waters Basophils/100 WBC (Bld) 0.8 % Normal 0.2-2.0 [facility] Comment on above: Performed By: #### C BC #### [facility] [address] [place] [address] Dr. Dwight Waters EO # 0.2 103/ul Normal 0.0-0.7 [facility] Comment on above: Performed By: #### C BC #### [facility] [address] [place] [address] Dr. Dwight Waters Eosinophils/100 WBC (Bld) 3.5 % Normal 0.9-7.0 [facility] Comment on above: Performed By: #### C BC #### [facility] [address] [place] [address] Dr. Dwight Waters Erythrocyte distribution width (RBC) [Ratio] 13.0 % Normal 11.0-15.0 [facility] Comment on above: Performed By: #### C BC #### [facility] [address] [place] [address] Dr. Dwight Waters Hematocrit (Bld) [Volume fraction] 50.0 % Normal 42.0-54.0 [facility] Comment on above: Performed By: #### C BC #### [facility] [address] [place] [address] Dr. Dwight Waters Hemoglobin (Bld) [Mass/Vol] 16.0 g/dL Normal 14.0-18.0 [facility] Comment on above: Performed By: #### C BC #### [facility] [address] [place] [address] Dr. Dwight Waters IG # 0.02 10e3/ul Normal 0.00-0.03 [facility] Comment on above: Performed By: #### C BC #### [facility] [address] [place] [address] Dr. Dwight Waters IG % 0.3 % Normal 0.0-0.5 [facility] Comment on above: Performed By: #### C BC #### [facility] [address] [place] [address] Dr. Dwight Waters LYMPH # 1.8 103/ul Normal 1.2-3.8 [facility] Comment on above: Performed By: #### C BC #### [facility] [address] [place] [address] Dr. Dwight Waters Lymphocytes/100 WBC (Bld) 26.5 % Normal 20.5-60.0 [facility] Comment on above: Performed By: #### C BC #### [facility] [address] [place] [address] Dr. Dwight Waters MANUAL DIFF REQ NO Normal [facility] Comment on above: Performed By: #### C BC #### [facility] [address] [place] [address] Dr. Dwight Waters MCH (RBC) [Entitic mass] 28.1 pg Normal 25.9-34.0 [facility] Comment on above: Performed By: #### C BC #### [facility] [address] [place] [address] Dr. Dwight Waters MCHC (RBC) [Mass/Vol] 32.0 g/dL Normal 29.9-35.2 [facility] Comment on above: Performed By: #### C BC #### [facility] [address] [place] [address] Dr. Dwight Waters MCV (RBC) [Entitic vol] 87.9 fL Normal 80.0-94.0 [facility] Comment on above: Performed By: #### C BC #### [facility] [address] [place] [address] Dr. Dwight Waters MONO # 0.5 103/ul Normal 0.3-0.8 [facility] Comment on above: Performed By: #### C BC #### [facility] [address] [place] [address] Dr. Dwight Waters Monocytes/100 WBC (Bld) 8.1 % Normal 1.7-12.0 [facility] Comment on above: Performed By: #### C BC #### [facility] [address] [place] [address] Dr. Dwight Waters NEUT # 4.0 103/ul Normal 1.4-6.5 [facility] Comment on above: Performed By: #### C BC #### [facility] [address] [place] [address] Dr. Dwight Waters Neutrophils/100 WBC (Bld) 60.8 % Normal 43.0-75.0 [facility] Comment on above: Performed By: #### C BC #### [facility] [address] [place] [address] Dr. Dwight Waters Platelet mean volume (Bld) [Entitic vol] 9.4 fL Critically low 9.5-13.5 [facility] Comment on above: Performed By: #### C BC #### [facility] [address] [place] [address] Dr. Dwight Waters PLT 265 103/ul Normal 150-450 [facility] Comment on above: Performed By: #### C BC #### [facility] [address] [place] [address] Dr. Dwight Waters RBC 5.69 106/ul Normal 4.70-6.10 [facility] Comment on above: Performed By: #### C BC #### [facility] [address] [place] [address] Dr. Dwight Waters WBC 6.6 103/ul Normal 4.0-11.0 [facility] Comment on above: Performed By: #### C BC #### [facility] [address] [place] [address] Dr. Dwight Waters GGTon 09-15-2022 Gamma glutamyl transferase [Catalytic activity/Vol] 23 U/L Normal 15-85 [facility] Comment on above: Performed By: #### U RTPCR #### [facility] [address] [place] [address] Dr. Dwight Waters MAGNESIUMon 09-15-2022 Magnesium [Mass/Vol] 1.8 mg/dL Normal 1.8-2.4 [facility] Comment on above: Performed By: #### U RTPCR #### [facility] [address] [place] [address] Dr. Dwight Waters RENAL FUNCTION PANELon 09-15 Albumin [Mass/Vol] 4.1 g/dL Normal 3.4-5.0 [facility] Comment on above: Performed By: #### C BC #### [facility] [address] [address] [address] Dwight Waters Calcium [Mass/Vol] 9.3 mg/dL Normal 8.5-10.1 [facility] Comment on above: Performed By: #### C BC #### [facility] [address] [address] [address] Dwight Waters Chloride [Moles/Vol] 107 mmol/L Normal 98-107 [facility] Comment on above: Performed By: #### C BC #### [facility] [address] [place] [address] Dr. Dwight Waters CO2 [Moles/Vol] 25.6 mmol/L Normal 21.0-32.0 [facility] Comment on above: Performed By: #### C BC #### [facility] [address] [place] [address] Dr. Dwight Waters Creatinine [Mass/Vol] 1.01 mg/dL Normal 0.70-1.30 [facility] Comment on above: Performed By: #### C BC #### [facility] [address] [place] [address] Dr. Dwight Waters EGFR-AF BENINESE >60 Normal >=60 [facility] Comment on above: Performed By: #### C BC #### [facility] [address] [place] [address] Dr. Dwight Waters EGFR-NON AF BENINESE >60 Normal >=60 [facility] Comment on above: Performed By: #### C BC #### [facility] [address] [place] [address] Dr. Dwight Waters Glucose [Mass/Vol] 119 mg/dL Critically high 74-106 [facility] Comment on above: Performed By: #### C BC #### [facility] [address] [place] [address] Dr. Dwight Waters Phosphate [Mass/Vol] 2.8 mg/dL Normal 2.6-4.7 [facility] Comment on above: Performed By: #### C BC #### [facility] [address] [place] [address] Dr. Dwight Waters Potassium [Moles/Vol] 4.0 mmol/L Normal 3.5-5.1 [facility] Comment on above: Performed By: #### C BC #### [facility] [address] [place] [address] Dr. Dwight Waters Sodium [Moles/Vol] 141 mmol/L Normal 136-145 [facility] Comment on above: Performed By: #### C BC #### [facility] [address] [place] [address] Dr. Dwight Waters Urea nitrogen [Mass/Vol] 15.0 mg/dL Normal 7.0-18.0 [facility] Comment on above: Performed By: #### C BC #### [facility] [address] [place] [address] Dr. Dwight Waters SGOTon 09-15-2022 AST [Catalytic activity/Vol] 18 U/L Normal 15-37 [facility] Comment on above: Performed By: #### U RTPCR #### [facility] [address] [place] [address] Dr. Dwight Waters SGPTon 09-15-2022 ALT [Catalytic activity/Vol] 32 U/L Normal 16-63 [facility] Comment on above: Performed By: #### C BC #### [facility] [address] [place] [address] Dr. Dwight Waters URINE T PROTEIN CREAT RATIOo n 09-15-2022 Protein (U) [Mass/Vol] 14.1 mg/dL Critically high <=12.0 [facility] Comment on above: Performed By: #### U RTPCR #### [facility] [address] [place] [address] Dr. Dwight Waters UR PROT CREAT RAT 0.14 Normal [facility] Comment on above: Performed By: #### U RTPCR #### [facility] [address] [place] [address] Dr. Dwight Waters URINE CREAT 98.89 mg/dL Normal 20.00-300.00 [facility] Comment on above: Performed By: #### U RTPCR #### [facility] [address] [address] [address] Dwight Waters US CAROTID ART BILon [...] MÓNICA JIMENEZ Date: 2022-08-28 13:20 Normal [facility] FK506 (TACROLIMUS) WHOLE BLO ODon 08-17-2022 Tacrolimus (FK506), Blood 9.9 ng/mL Normal 2.0-20.0 [facility] Comment on above: Result Comment: Trou gh (immediately following transplant) 15.0 . Trough (steady state, 2 weeks or more after transplant): 3.0 - 8.0 . Performed by LC-MS/MS technology. Performed By: #### F [id number] #### [facility] [address] [place] [address] Dr. Dwight Waters BK VIRUS PCR QUANTon 022 BKV DNA QUANT PCR PLASMA Negative Normal Negative [facility] Comment on above: Result Comment: No B K DNA detected. . The linear range of the assay is 22 - 100,000,000 IU/mL. Performed By: #### U RTPCR #### [facility] [address] [place] [address] Dr. Dwight Waters Log10 BKV DNA Plasma Normal [facility] Comment on above: Performed By: #### U RTPCR #### [facility] [address] [place] [address] Dr. Dwight Waters ALBUMINon 08-14-2022 Albumin [Mass/Vol] 4.2 g/dL Normal 3.4-5.0 [facility] Comment on above: Performed By: #### F [id number] #### [facility] [address] [place] [address] Dr. Dwight Waters ALKALINE PHOSPHAon 2 ALP [Catalytic activity/Vol] 92 U/L Normal 46-116 [facility] Comment on above: Performed By: #### C BC #### [facility] [address] [place] [address] Dr. Dwight Waters BILIRUBIN CONJUGATED (DIRECT )on 08-14-2022 BILI, CONJUGATED 0.3 mg/dL Critically high 0.0-0.2 [facility] Comment on above: Performed By: #### F [id number] #### [facility] [address] [place] [address] Dr. Dwight Waters BILIRUBIN TOTALon 08-14-2022 Bilirubin [Mass/Vol] 1.5 mg/dL Critically high 0.2-1.0 [facility] Comment on above: Performed By: #### F [id number] #### [facility] [address] [place] [address] Dr. Dwight Waters BUNon 08-14-2022 Urea nitrogen [Mass/Vol] 11.0 mg/dL Normal 7.0-18.0 [facility] Comment on above: Performed By: #### C BC #### [facility] [address] [place] [address] Dr. Dwight Waters CALCIUMon 08-14-2022 Calcium [Mass/Vol] 9.4 mg/dL Normal 8.5-10.1 [facility] Comment on above: Performed By: #### F [id number] #### [facility] [address] [place] [address] Dr. Dwight Waters CBC AUTO DIFFon 08-14-2022 BASO # 0.0 103/ul Normal 0.0-0.1 [facility] Comment on above: Performed By: #### C MP #### [facility] [address] [place] [address] Dr. Dwight Waters Basophils/100 WBC (Bld) 0.5 % Normal 0.2-2.0 [facility] Comment on above: Performed By: #### C MP #### [facility] [address] [place] [address] Dr. Dwight Waters EO # 0.2 103/ul Normal 0.0-0.7 [facility] Comment on above: Performed By: #### C MP #### [facility] [address] [place] [address] Dr. Dwight Waters Eosinophils/100 WBC (Bld) 2.6 % Normal 0.9-7.0 [facility] Comment on above: Performed By: #### C MP #### [facility] [address] [place] [address] Dr. Dwight Waters Erythrocyte distribution width (RBC) [Ratio] 13.1 % Normal 11.0-15.0 [facility] Comment on above: Performed By: #### C MP #### [facility] [address] [place] [address] Dr. Dwight Waters Hematocrit (Bld) [Volume fraction] 47.0 % Normal 42.0-54.0 [facility] Comment on above: Performed By: #### C MP #### [facility] [address] [place] [address] Dr. Dwight Waters Hemoglobin (Bld) [Mass/Vol] 15.3 g/dL Normal 14.0-18.0 [facility] Comment on above: Performed By: #### C MP #### [facility] [address] [place] [address] Dr. Dwight Waters IG # 0.01 10e3/ul Normal 0.00-0.03 [facility] Comment on above: Performed By: #### C MP #### [facility] [address] [place] [address] Dr. Dwight Waters IG % 0.1 % Normal 0.0-0.5 [facility] Comment on above: Performed By: #### C MP #### [facility] [address] [place] [address] Dr. Dwight Waters LYMPH # 2.3 103/ul Normal 1.2-3.8 [facility] Comment on above: Performed By: #### C MP #### [facility] [address] [place] [address] Dr. Dwight Waters Lymphocytes/100 WBC (Bld) 29.8 % Normal 20.5-60.0 [facility] Comment on above: Performed By: #### C MP #### [facility] [address] [place] [address] Dr. Dwight Waters MANUAL DIFF REQ NO Normal [facility] Comment on above: Performed By: #### C MP #### [facility] [address] [place] [address] Dr. Dwight Waters MCH (RBC) [Entitic mass] 28.2 pg Normal 25.9-34.0 [facility] Comment on above: Performed By: #### C MP #### [facility] [address] [place] [address] Dr. Dwight Waters MCHC (RBC) [Mass/Vol] 32.6 g/dL Normal 29.9-35.2 [facility] Comment on above: Performed By: #### C MP #### [facility] [address] [place] [address] Dr. Dwight Waters MCV (RBC) [Entitic vol] 86.7 fL Normal 80.0-94.0 [facility] Comment on above: Performed By: #### C MP #### [facility] [address] [place] [address] Dr. Dwight Waters MONO # 0.7 103/ul Normal 0.3-0.8 [facility] Comment on above: Performed By: #### C MP #### [facility] [address] [place] [address] Dr. Dwight Waters Monocytes/100 WBC (Bld) 8.5 % Normal 1.7-12.0 [facility] Comment on above: Performed By: #### C MP #### [facility] [address] [place] [address] Dr. Dwight Waters NEUT # 4.5 103/ul Normal 1.4-6.5 [facility] Comment on above: Performed By: #### C MP #### [facility] [address] [place] [address] Dr. Dwight Waters Neutrophils/100 WBC (Bld) 58.5 % Normal 43.0-75.0 [facility] Comment on above: Performed By: #### C MP #### [facility] [address] [place] [address] Dr. Dwight Waters Platelet mean volume (Bld) [Entitic vol] 9.7 fL Normal 9.5-13.5 [facility] Comment on above: Performed By: #### C MP #### [facility] [address] [place] [address] Dr. Dwight Waters PLT 266 103/ul Normal 150-450 [facility] Comment on above: Performed By: #### C MP #### [facility] [address] [place] [address] Dr. Dwight Waters RBC 5.42 106/ul Normal 4.70-6.10 [facility] Comment on above: Performed By: #### C MP #### [facility] [address] [place] [address] Dr. Dwight Waters WBC 7.6 103/ul Normal 4.0-11.0 [facility] Comment on above: Performed By: #### C MP #### [facility] [address] [place] [address] Dr. Dwight Waters CHLORIDEon 08-14-2022 Chloride [Moles/Vol] 104 mmol/L Normal 98-107 [facility] Comment on above: Performed By: #### C BC #### [facility] [address] [place] [address] Dr. Dwight Waters CO2on 08-14-2022 CO2 [Moles/Vol] 27.9 mmol/L Normal 21.0-32.0 [facility] Comment on above: Performed By: #### C BC #### [facility] [address] [place] [address] Dr. Dwight Waters CREATININEon 08-14-2022 Creatinine [Mass/Vol] 1.08 mg/dL Normal 0.70-1.30 [facility] Comment on above: Performed By: #### C BC #### [facility] [address] [place] [address] Dr. Dwight Waters EGFR-AF BENINESE >60 Normal >=60 [facility] Comment on above: Performed By: #### C BC #### [facility] [address] [place] [address] Dr. Dwight Waters EGFR-NON AF BENINESE >60 Normal >=60 [facility] Comment on above: Performed By: #### C BC #### [facility] [address] [place] [address] Dr. Dwight Waters GGTon 08-14-2022 Gamma glutamyl transferase [Catalytic activity/Vol] 24 U/L Normal 15-85 [facility] Comment on above: Performed By: #### F [id number] #### [facility] [address] [place] [address] Dr. Dwight Waters GLUCOSE BLOODon 08-14-2022 Glucose [Mass/Vol] 111 mg/dL Critically high 74-106 [facility] Comment on above: Performed By: #### C BC #### [facility] [address] [place] [address] Dr. Dwight Waters MAGNESIUMon 08-14-2022 Magnesium [Mass/Vol] 1.4 mg/dL Critically low 1.8-2.4 [facility] Comment on above: Performed By: #### C BC #### [facility] [address] [place] [address] Dr. Dwight Waters NAon 08-14-2022 Sodium [Moles/Vol] 140 mmol/L Normal 136-145 [facility] Comment on above: Performed By: #### F [id number] #### [facility] [address] [place] [address] Dr. Dwight Waters PHOSPHORUSon 08-14-2022 Phosphate [Mass/Vol] 3.1 mg/dL Normal 2.6-4.7 [facility] Comment on above: Performed By: #### C BC #### [facility] [address] [place] [address] Dr. Dwight Waters POTASSIUMon 08-14-2022 Potassium [Moles/Vol] 3.5 mmol/L Normal 3.5-5.1 [facility] Comment on above: Performed By: #### C BC #### [facility] [address] [place] [address] Dr. Dwight Waters SGOTon 08-14-2022 AST [Catalytic activity/Vol] 17 U/L Normal 15-37 [facility] Comment on above: Performed By: #### F [id number] #### [facility] [address] [place] [address] Dr. Dwight Waters SGPTon 08-14-2022 ALT [Catalytic activity/Vol] 22 U/L Normal 16-63 [facility] Comment on above: Performed By: #### F [id number] #### [facility] [address] [place] [address] Dr. Dwight Waters URINE T PROTEIN CREAT RATIOo n 08-14-2022 Protein (U) [Mass/Vol] 10.7 mg/dL Normal <=12.0 [facility] Comment on above: Performed By: #### F [id number] #### [facility] [address] [place] [address] Dr. Dwight Waters UR PROT CREAT RAT 0.10 Normal [facility] Comment on above: Performed By: #### F [id number] #### [facility] [address] [place] [address] Dr. Dwight Waters URINE CREAT 104.28 mg/dL Normal 20.00-300.00 [facility] Comment on above: Performed By: #### F [id number] #### [facility] [address] [place] [address] Dr. Dwight Waters NEPHROSTOMY TUBE REMOVALon 0 [...] Assisting physician present for entire procedure: yes [facility] Study observation (narrative) [facility] FK506 (TACROLIMUS) WHOLE BLO ODon 07-06-2022 Tacrolimus (FK506), Blood 9.5 ng/mL Normal 2.0-20.0 [facility] Comment on above: Result Comment: Trou gh (immediately following transplant) 15.0 . Trough (steady state, 2 weeks or more after transplant): 3.0 - 8.0 . Performed by LC-MS/MS technology. Performed By: #### C MP #### [facility] [address] [place] [address] Dr. Dwight Waters ALBUMINon 07-03-2022 Albumin [Mass/Vol] 3.7 g/dL Normal 3.4-5.0 [facility] Comment on above: Performed By: #### U RTPCR #### [facility] [address] [place] [address] Dr. Dwight Waters ALKALINE PHOSPHAon ALP [Catalytic activity/Vol] 76 U/L Normal 46-116 [facility] Comment on above: Performed By: #### U RTPCR #### [facility] [address] [place] [address] Dr. Dwight Waters BILIRUBIN CONJUGATED (DIRECT )on 07-03-2022 BILI, CONJUGATED 0.3 mg/dL Critically high 0.0-0.2 [facility] Comment on above: Performed By: #### C BC #### [facility] [address] [place] [address] Dr. Dwight Waters BILIRUBIN TOTALon 07-03-2022 Bilirubin [Mass/Vol] 1.4 mg/dL Critically high 0.2-1.0 [facility] Comment on above: Performed By: #### C BC #### [facility] [address] [place] [address] Dr. Dwight Waters BUNon 07-03-2022 Urea nitrogen [Mass/Vol] 15.0 mg/dL Normal 7.0-18.0 [facility] Comment on above: Performed By: #### C BC #### [facility] [address] [place] [address] Dr. Dwight Waters CALCIUMon 07-03-2022 Calcium [Mass/Vol] 9.4 mg/dL Normal 8.5-10.1 [facility] Comment on above: Performed By: #### U RTPCR #### [facility] [address] [place] [address] Dr. Dwight Waters CBC AUTO DIFFon 07-03-2022 BASO # 0.0 103/ul Normal 0.0-0.1 [facility] Comment on above: Performed By: #### U RTPCR #### [facility] [address] [place] [address] Dr. Dwight Waters Basophils/100 WBC (Bld) 0.6 % Normal 0.2-2.0 [facility] Comment on above: Performed By: #### U RTPCR #### [facility] [address] [place] [address] Dr. Dwight Waters EO # 0.2 103/ul Normal 0.0-0.7 [facility] Comment on above: Performed By: #### U RTPCR #### [facility] [address] [place] [address] Dr. Dwight Waters Eosinophils/100 WBC (Bld) 3.5 % Normal 0.9-7.0 [facility] Comment on above: Performed By: #### U RTPCR #### [facility] [address] [place] [address] Dr. Dwight Waters Erythrocyte distribution width (RBC) [Ratio] 12.9 % Normal 11.0-15.0 [facility] Comment on above: Performed By: #### U RTPCR #### [facility] [address] [place] [address] Dr. Dwight Waters Hematocrit (Bld) [Volume fraction] 44.2 % Normal 42.0-54.0 [facility] Comment on above: Performed By: #### U RTPCR #### [facility] [address] [place] [address] Dr. Dwight Waters Hemoglobin (Bld) [Mass/Vol] 14.6 g/dL Normal 14.0-18.0 [facility] Comment on above: Performed By: #### U RTPCR #### [facility] [address] [place] [address] Dr. Dwight Waters IG # 0.02 10e3/ul Normal 0.00-0.03 [facility] Comment on above: Performed By: #### U RTPCR #### [facility] [address] [place] [address] Dr. Dwight Waters IG % 0.3 % Normal 0.0-0.5 [facility] Comment on above: Performed By: #### U RTPCR #### [facility] [address] [place] [address] Dr. Dwight Waters LYMPH # 2.0 103/ul Normal 1.2-3.8 [facility] Comment on above: Performed By: #### U RTPCR #### [facility] [address] [place] [address] Dr. Dwight Waters Lymphocytes/100 WBC (Bld) 28.4 % Normal 20.5-60.0 [facility] Comment on above: Performed By: #### U RTPCR #### [facility] [address] [place] [address] Dr. Dwight Waters MANUAL DIFF REQ NO Normal [facility] Comment on above: Performed By: #### U RTPCR #### [facility] [address] [place] [address] Dr. Dwight Waters MCH (RBC) [Entitic mass] 28.6 pg Normal 25.9-34.0 [facility] Comment on above: Performed By: #### U RTPCR #### [facility] [address] [address] [address] Dwight Waters MCHC (RBC) [Mass/Vol] 33.0 g/dL Normal 29.9-35.2 [facility] Comment on above: Performed By: #### U RTPCR #### [facility] [address] [address] [address] Dwight Waters MCV (RBC) [Entitic vol] 86.7 fL Normal 80.0-94.0 [facility] Comment on above: Performed By: #### U RTPCR #### [facility] [address] [place] [address] Dr. Dwight Waters MONO # 0.6 103/ul Normal 0.3-0.8 [facility] Comment on above: Performed By: #### U RTPCR #### [facility] [address] [place] [address] Dr. Dwight Waters Monocytes/100 WBC (Bld) 9.1 % Normal 1.7-12.0 [facility] Comment on above: Performed By: #### U RTPCR #### [facility] [address] [place] [address] Dr. Dwight Waters NEUT # 4.0 103/ul Normal 1.4-6.5 [facility] Comment on above: Performed By: #### U RTPCR #### [facility] [address] [place] [address] Dr. Dwight Waters Neutrophils/100 WBC (Bld) 58.1 % Normal 43.0-75.0 [facility] Comment on above: Performed By: #### U RTPCR #### [facility] [address] [place] [address] Dr. Dwight Waters Platelet mean volume (Bld) [Entitic vol] 9.5 fL Normal 9.5-13.5 [facility] Comment on above: Performed By: #### U RTPCR #### [facility] [address] [place] [address] Dr. Dwight Waters PLT 292 103/ul Normal 150-450 [facility] Comment on above: Performed By: #### U RTPCR #### [facility] [address] [place] [address] Dr. Dwight Waters RBC 5.10 106/ul Normal 4.70-6.10 [facility] Comment on above: Performed By: #### U RTPCR #### [facility] [address] [place] [address] Dr. Dwight Waters WBC 6.9 103/ul Normal 4.0-11.0 [facility] Comment on above: Performed By: #### U RTPCR #### [facility] [address] [place] [address] Dr. Dwight Waters CHLORIDEon 07-03-2022 Chloride [Moles/Vol] 108 mmol/L Critically high 98-107 [facility] Comment on above: Performed By: #### C BC #### [facility] [address] [place] [address] Dr. Dwight Waters CO2on 07-03-2022 CO2 [Moles/Vol] 25.2 mmol/L Normal 21.0-32.0 [facility] Comment on above: Performed By: #### C BC #### [facility] [address] [place] [address] Dr. Dwight Waters CREATININEon 07-03-2022 Creatinine [Mass/Vol] 1.03 mg/dL Normal 0.70-1.30 [facility] Comment on above: Performed By: #### U RTPCR #### [facility] [address] [place] [address] Dr. Dwight Waters EGFR-AF BENINESE >60 Normal >=60 [facility] Comment on above: Performed By: #### U RTPCR #### [facility] [address] [place] [address] Dr. Dwight Waters EGFR-NON AF BENINESE >60 Normal >=60 [facility] Comment on above: Performed By: #### U RTPCR #### [facility] [address] [place] [address] Dr. Dwight Waters GGTon 07-03-2022 Gamma glutamyl transferase [Catalytic activity/Vol] 31 U/L Normal 15-85 [facility] Comment on above: Performed By: #### U RTPCR #### [facility] [address] [place] [address] Dr. Dwight Waters GLUCOSE BLOODon 07-03-2022 Glucose [Mass/Vol] 119 mg/dL Critically high 74-106 [facility] Comment on above: Performed By: #### U RTPCR #### [facility] [address] [place] [address] Dr. Dwight Waters MAGNESIUMon 07-03-2022 Magnesium [Mass/Vol] 1.4 mg/dL Critically low 1.8-2.4 [facility] Comment on above: Performed By: #### C BC #### [facility] [address] [place] [address] Dr. Dwight Waters NAon 07-03-2022 Sodium [Moles/Vol] 142 mmol/L Normal 136-145 [facility] Comment on above: Performed By: #### C MP #### [facility] [address] [place] [address] Dr. Dwight Waters PHOSPHORUSon 07-03-2022 Phosphate [Mass/Vol] 3.4 mg/dL Normal 2.6-4.7 [facility] Comment on above: Performed By: #### C BC #### [facility] [address] [place] [address] Dr. Dwight Waters POTASSIUMon 07-03-2022 Potassium [Moles/Vol] 4.1 mmol/L Normal 3.5-5.1 [facility] Comment on above: Performed By: #### C BC #### [facility] [address] [place] [address] Dr. Dwight Waters SGOTon 07-03-2022 AST [Catalytic activity/Vol] 14 U/L Critically low 15-37 [facility] Comment on above: Performed By: #### C BC #### [facility] [address] [place] [address] Dr. Dwight Waters SGPTon 07-03-2022 ALT [Catalytic activity/Vol] 25 U/L Normal 16-63 [facility] Comment on above: Performed By: #### C #### [facility] [address] [address] [address] Dwight Waters US KIDNEYSon 07-03-2022 US KIDNEYS Ultrasound kidneys, bilateral HISTORY: Transplant of kidney , pain in the right lower quadrant COMPARISON: None. TECHNIQUE: Transabdominal ultrasound imaging of both kidneys was performed. FINDINGS: The [place] kidneys are diffusely echogenic and atrophic with cortical thinning. The right kidney measures 8.3 x 3.5 x 4.07 m and the left measures 9.9 x 3.8 x 3.6 cm. No hydronephrosis of the [place] kidneys. There is a renal transplant in [...] stone involving the renal transplant. 2. Atrophic [place] kidneys. 3. Normal bladder. Electronically authenticated by: ARCELIA PIZARRO Date: 2022-07-03 17:22 Normal [facility] CT Abdomen and Pelvis WO con traston 06-27-2022 IMPRESSION: 1. Both [place] kidneys are atrophic with improvement in right-sided [...] Adrenals: Adrenal glands are unremarkable. Kidneys: Both [place] kidneys are atrophic. Interval improvement in right [place] kidney hydronephrosis since May 15, 2022. Status [...] Adrenals: Adrenal glands are unremarkable. Kidneys: Both [place] kidneys are atrophic. Interval improvement in right [place] kidney hydronephrosis since May 15, 2022. Status [...] aggressive osseous lesions. IMPRESSION IMPRESSION: 1. Both [place] kidneys are atrophic with improvement in right-sided hydronephrosis since May 15, 2022. 2. 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 No hydronephrosis. No discrete perinephric collection. 3. Partially imaged postsurgical changes related to prior liver transplant. 4. The bladder is decompressed, limiting evaluation. [facility] Radiology Study observation (narrative) [facility] CT Abdomen and Pelvis WO con trastOrdered By: Gera Lu on 06-27-2022 [facility] Work Phone: CBC AUTO DIFFon 06-18-2022 BASO # 0.0 103/ul Normal 0.0-0.1 [facility] Comment on above: Performed By: #### U RTPCR #### [facility] [address] [place] [address] Dr. Dwight Waters Basophils/100 WBC (Bld) 0.5 % Normal 0.2-2.0 [facility] Comment on above: Performed By: #### U RTPCR #### [facility] [address] [place] [address] Dr. Dwight Waters EO # 0.2 103/ul Normal 0.0-0.7 [facility] Comment on above: Performed By: #### U RTPCR #### [facility] [address] [place] [address] Dr. Dwight Waters Eosinophils/100 WBC (Bld) 2.3 % Normal 0.9-7.0 [facility] Comment on above: Performed By: #### U RTPCR #### [facility] [address] [place] [address] Dr. Dwight Waters Erythrocyte distribution width (RBC) [Ratio] 12.9 % Normal 11.0-15.0 [facility] Comment on above: Performed By: #### U RTPCR #### [facility] [address] [place] [address] Dr. Dwight Waters Hematocrit (Bld) [Volume fraction] 41.2 % Critically low 42.0-54.0 [facility] Comment on above: Performed By: #### U RTPCR #### [facility] [address] [place] [address] Dr. Dwight Waters Hemoglobin (Bld) [Mass/Vol] 13.3 g/dL Critically low 14.0-18.0 [facility] Comment on above: Performed By: #### U RTPCR #### [facility] [address] [place] [address] Dr. Dwight Waters IG # 0.04 10e3/ul Critically high 0.00-0.03 [facility] Comment on above: Performed By: #### U RTPCR #### [facility] [address] [place] [address] Dr. Dwight Waters IG % 0.5 % Normal 0.0-0.5 [facility] Comment on above: Performed By: #### U RTPCR #### [facility] [address] [place] [address] Dr. Dwight Waters LYMPH # 2.0 103/ul Normal 1.2-3.8 [facility] Comment on above: Performed By: #### U RTPCR #### [facility] [address] [place] [address] Dr. Dwight Waters Lymphocytes/100 WBC (Bld) 22.9 % Normal 20.5-60.0 [facility] Comment on above: Performed By: #### U RTPCR #### [facility] [address] [place] [address] Dr. Dwight Waters MANUAL DIFF REQ NO Normal [facility] Comment on above: Performed By: #### U RTPCR #### [facility] [address] [place] [address] Dr. Dwight Waters MCH (RBC) [Entitic mass] 28.7 pg Normal 25.9-34.0 [facility] Comment on above: Performed By: #### U RTPCR #### [facility] [address] [place] [address] Dr. Dwight Waters MCHC (RBC) [Mass/Vol] 32.3 g/dL Normal 29.9-35.2 [facility] Comment on above: Performed By: #### U RTPCR #### [facility] [address] [place] [address] Dr. Dwight Waters MCV (RBC) [Entitic vol] 88.8 fL Normal 80.0-94.0 [facility] Comment on above: Performed By: #### U RTPCR #### [facility] [address] [place] [address] Dr. Dwight Waters MONO # 0.8 103/ul Normal 0.3-0.8 [facility] Comment on above: Performed By: #### U RTPCR #### [facility] [address] [place] [address] Dr. Dwight Waters Monocytes/100 WBC (Bld) 9.7 % Normal 1.7-12.0 [facility] Comment on above: Performed By: #### U RTPCR #### [facility] [address] [place] [address] Dr. Dwight Waters NEUT # 5.6 103/ul Normal 1.4-6.5 [facility] Comment on above: Performed By: #### U RTPCR #### [facility] [address] [place] [address] Dr. Dwight Waters Neutrophils/100 WBC (Bld) 64.1 % Normal 43.0-75.0 [facility] Comment on above: Performed By: #### U RTPCR #### [facility] [address] [place] [address] Dr. Dwight Waters Platelet mean volume (Bld) [Entitic vol] 10.0 fL Normal 9.5-13.5 [facility] Comment on above: Performed By: #### U RTPCR #### [facility] [address] [place] [address] Dr. Dwight Waters PLT 270 103/ul Normal 150-450 [facility] Comment on above: Performed By: #### U RTPCR #### [facility] [address] [place] [address] Dr. Dwight Waters RBC 4.64 106/ul Critically low 4.70-6.10 [facility] Comment on above: Performed By: #### U RTPCR #### [facility] [address] [place] [address] Dr. Dwight Waters WBC 8.7 103/ul Normal 4.0-11.0 [facility] Comment on above: Performed By: #### U RTPCR #### [facility] [address] [place] [address] Dr. Dwight Waters CULTURE URINEon 06-18-2022 CULTURE URINE Culture Observations : NO GROWTH. Normal [facility] Comment on above: Performed By: #### U RTPCR #### [facility] [address] [place] [address] Dr. Dwight Waters [facility] SARS-CoV-2 (COVID-19) RNA ESTELITA+probe Ql (Unsp spec) Not detected Normal NOT DETECTED [facility] Comment on above: Result Comment: When diagnostic [...] for this test is supported by the [employer] of [employer] and Human Service's declaration that [...] used). Performed By: #### C BC #### [facility] [address] [place] [address] Dr. Dwight Waters ER URINE PROFILEon 2 Bilirubin Ql (U) Negative Normal NEGATIVE [facility] Comment on above: Performed By: #### U RTPCR #### [facility] [address] [place] [address] Dr. Dwight Waters Clarity (U) CLEAR Normal CLEAR [facility] Comment on above: Performed By: #### U RTPCR #### [facility] [address] [place] [address] Dr. Dwight Waters Color (U) YELLOW Normal YELLOW [facility] Comment on above: Performed By: #### U RTPCR #### [facility] [address] [place] [address] Dr. Dwight SHARMA A micrscopic examination will be performed if indicated. Normal [facility] Comment on above: Performed By: #### U RTPCR #### [facility] [address] [place] [address] Dr. Dwight Waters Glucose Ql (U) Negative Normal NEGATIVE [facility] Comment on above: Performed By: #### U RTPCR #### [facility] [address] [place] [address] Dr. Dwight Waters Hemoglobin Ql (U) LARGE Abnormal NEGATIVE [facility] Comment on above: Performed By: #### U RTPCR #### [facility] [address] [place] [address] Dr. Dwight Waters Ketones Ql (U) Negative Normal NEGATIVE [facility] Comment on above: Performed By: #### U RTPCR #### [facility] [address] [place] [address] Dr. Dwight Waters LEUKOCYTES TRACE Abnormal NEGATIVE [facility] Comment on above: Performed By: #### U RTPCR #### [facility] [address] [place] [address] Dr. Dwight Waters Nitrite Ql (U) Negative Normal NEGATIVE [facility] Comment on above: Performed By: #### U RTPCR #### [facility] [address] [place] [address] Dr. Dwight Waters pH (U) 6.0 [pH] Normal 5-9 [facility] Comment on above: Performed By: #### U RTPCR #### [facility] [address] [place] [address] Dr. Dwight Waters Protein (U) [Mass/Vol] 30 mg/dL Abnormal NEGATIVE/ TRACE [facility] Comment on above: Performed By: #### U RTPCR #### [facility] [address] [place] [address] Dr. Dwight Waters SPEC GRAVITY >=1.030 Abnormal 1.005-<=1.025 [facility] Comment on above: Performed By: #### U RTPCR #### [facility] [address] [place] [address] Dr. Dwight Waters UR MICRO IND INDICATED Normal [facility] Comment on above: Performed By: #### U RTPCR #### [facility] [address] [place] [address] Dr. Dwight Waters Urobilinogen Qn (U) 0.2 {Alyssa'U}/dL Normal 0.2 - 1. 0 [facility] Comment on above: Performed By: #### U RTPCR #### [facility] [address] [place] [address] Dr. Dwight Waters PROF 14(COMP METB)on 022 Albumin [Mass/Vol] 3.7 g/dL Normal 3.4-5.0 [facility] Comment on above: Performed By: #### C MP #### [facility] [address] [place] [address] Dr. Dwight Waters Albumin/Globulin [Mass ratio] 0.9 {ratio} Normal [facility] Comment on above: Performed By: #### C MP #### [facility] [address] [place] [address] Dr. Dwight Waters ALP [Catalytic activity/Vol] 80 U/L Normal 46-116 [facility] Comment on above: Performed By: #### C MP #### [facility] [address] [address] [address] Dwight Waters ALT [Catalytic activity/Vol] 24 U/L Normal 16-63 [facility] Comment on above: Performed By: #### C MP #### [facility] [address] [place] [address] Dr. Dwight Waters Anion gap [Moles/Vol] 12.9 mmol/L Normal [facility] Comment on above: Performed By: #### C MP #### [facility] [address] [place] [address] Dr. Dwight Waters AST [Catalytic activity/Vol] 17 U/L Normal 15-37 [facility] Comment on above: Performed By: #### C MP #### [facility] [address] [place] [address] Dr. Dwight Waters Bilirubin [Mass/Vol] 0.8 mg/dL Normal 0.2-1.0 [facility] Comment on above: Performed By: #### C MP #### [facility] [address] [place] [address] Dr. Dwight Waters Calcium [Mass/Vol] 9.4 mg/dL Normal 8.5-10.1 [facility] Comment on above: Performed By: #### C MP #### [facility] [address] [place] [address] Dr. Dwight Waters Chloride [Moles/Vol] 106 mmol/L Normal 98-107 [facility] Comment on above: Performed By: #### C MP #### [facility] [address] [place] [address] Dr. Dwight Waters CO2 [Moles/Vol] 25.3 mmol/L Normal 21.0-32.0 [facility] Comment on above: Performed By: #### C MP #### [facility] [address] [address] [address] Dwight Waters Creatinine [Mass/Vol] 1.29 mg/dL Normal 0.70-1.30 [facility] Comment on above: Performed By: #### C MP #### [facility] [address] [address] [address] Dwight Waters EGFR-AF BENINESE >60 Normal >=60 [facility] Comment on above: Performed By: #### C MP #### [facility] [address] [address] [address] Dwight Waters EGFR-NON AF BENINESE 59 mL/min/1.73m2 Critically low >=60 [facility] Comment on above: Performed By: #### C MP #### [facility] [address] [address] [address] Dwight Waters Globulin (S) [Mass/Vol] 4.2 g/dL Normal [facility] Comment on above: Performed By: #### C MP #### [facility] [address] [address] [address] Dwight Wtaers Glucose [Mass/Vol] 106 mg/dL Normal 74-106 [facility] Comment on above: Performed By: #### C MP #### [facility] [address] [address] [address] Dwight Waters Potassium [Moles/Vol] 4.2 mmol/L Normal 3.5-5.1 [facility] Comment on above: Performed By: #### C MP #### [facility] [address] [address] [address] Dwight Waters Protein [Mass/Vol] 7.9 g/dL Normal 6.4-8.2 [facility] Comment on above: Performed By: #### C MP #### [facility] [address] [address] [address] Dwight Waters Sodium [Moles/Vol] 140 mmol/L Normal 136-145 [facility] Comment on above: Performed By: #### C MP #### [facility] [address] [place] [address] Dr. Dwight Waters Urea nitrogen [Mass/Vol] 22.0 mg/dL Critically high 7.0-18.0 [facility] Comment on above: Performed By: #### C MP #### [facility] [address] [place] [address] Dr. Dwight Waters Urea nitrogen/Creatinine [Mass ratio] 17.1 mg/mg Normal [facility] Comment on above: Performed By: #### C MP #### [facility] [address] [place] [address] Dr. Dwight Waters URINE MICROSCOPIC ONLYon BACTERIA TRACE Abnormal NONE SEEN [facility] Comment on above: Performed By: #### U RTPCR #### [facility] [address] [place] [address] Dr. Dwight Waters Bacteria identified Cx Nom (U) INDICATED Normal [facility] Comment on above: Performed By: #### U RTPCR #### [facility] [address] [place] [address] Dr. Dwight Waters CAST NONE SEEN Normal NONE SEEN [facility] Comment on above: Performed By: #### U RTPCR #### [facility] [address] [place] [address] Dr. Dwight Waters Crystals LM Nom (Urine sed) NONE SEEN Normal NONE SEEN [facility] Comment on above: Performed By: #### U RTPCR #### [facility] [address] [place] [address] Dr. Dwight Waters Epithelial cells LM Ql (Urine sed) NONE SEEN Normal NONE SEEN /RARE [facility] Comment on above: Performed By: #### U RTPCR #### [facility] [address] [place] [address] Dr. Dwight Waters MUCOUS NONE SEEN Normal NONE SEEN [facility] Comment on above: Performed By: #### U RTPCR #### [facility] [address] [place] [address] Dr. Dwight Waters RBC 5-10 Abnormal 0-2 [facility] Comment on above: Performed By: #### U RTPCR #### [facility] [address] [place], [place] [address] Dr. Dwight Waters WBC 10-20 Abnormal NONE SEEN [facility] Comment on above: Performed By: #### U RTPCR #### [facility] [address] [place], [place] [address] Dr. Dwight Waters ALLOSCREEN RECIPIENT (POST T X PRA)on 06-13-2022 AB SPECIFICITY CLASS COMMENT Antibody Specificity testing performed by [employer]. cPRA calculation based on identification of HLA antibody specificities at MFI >2000 and/or presence of CREG antibodies. [facility] Comment on above: Some of the reagents used for testing in the Clinical Histocompatibility Laboratory have yet to be approved by the FDA. Our certification by CLIA to perform high complexity tests allows us to use these reagents in the context of a stringent QC program, and obviates the need for FDA approval.Testing performed by the [facility] Clinical [facility]ocompatibility Laboratory. [facility] number: [id number]. CLIA number: [id number], Director: Carlito Merchant, PhD, D([facility]). ANTIBODY SPECIFICITY INTERPRETATION Detected [facility] CLASS I SPECIFICITIES Not detected [facility] CLASS II SPECIFICITIES Not detected [facility] HLA Ab (S) 0 % 0 [facility] EXTRA MICROon 06-13-2022 [facility] URINE CULTUREOrdered By: Jah Upton on 06-13-2022 Bacteria identified Cx Nom (Unsp spec) Growth [facility] Bacteria identified Cx Nom (Unsp spec) 10,000-50,000 CFU/mL Mixed skin shimon [facility] Comment on above: Multiple bacterial m orphotypes present. Suggest appropriate recollection if clinically indicated. [facility] CBC,PLATELETSon 06-12-2022 Erythrocyte distribution width (RBC) [Ratio] 13.0 % 10.9 - 14.3 % [facility] Hematocrit (Bld) [Volume fraction] 43.2 % 39.6 - 48.8 % [facility] Hemoglobin (Bld) [Mass/Vol] 13.9 g/dL 13.4 - 16.8 g/dL [facility] Interpretation and review of laboratory results Normal [facility] MCH (RBC) [Entitic mass] 28.7 pg 26.1 - 33.3 pg [facility] MCHC (RBC) [Mass/Vol] 32.2 g/dL 31.9 - 36.5 g/dL [facility] MCV (RBC) [Entitic vol] 89.1 fL 79.0 - 94.5 fL [facility] Platelet mean volume (Bld) [Entitic vol] 10.5 fL 8.7 - 12.3 fL [facility] Platelets (Bld) [#/Vol] 269 10*3/uL 146 - 337 K/uL [facility] RBC (Bld) [#/Vol] 4.85 10*6/uL [facility] WBC (Bld) [#/Vol] 7.68 10*3/uL 3.73 - 10. 10 K/uL [facility] CHEM 7 (LYTES,BUN,CREA,GLUC) on 06-12-2022 Anion gap [Moles/Vol] 14 mmol/L 7 - 17 mmol/L [facility] Chloride [Moles/Vol] 106 mmol/L 98 - 10 8 mmol/L [facility] CO2 [Moles/Vol] 25 mmol/L 21 - 31 mmol/L [facility] Creatinine [Mass/Vol] 1.26 mg/dL 0.70 - 1.30 mg/dL [facility] GFR/1.73 sq M.predicted CKD-EPI (S/P/Bld) [Vol rate/Area] 69 >=60 mL/min/1.73m2 [facility] Comment on above: Reported eGFR is bas ed on the CKD-EPI 2020 equation using creatinine, age, and sex. Glucose [Mass/Vol] 83 mg/dL 70 - 99 mg/dL [facility]ality[facility] Potassium [Moles/Vol] 3.8 mmol/L 3.5 - 5.0 mmol/L [facility] Sodium [Moles/Vol] 141 mmol/L 135 - 145 mmol/L [facility] Urea nitrogen [Mass/Vol] 18 mg/dL 7 - 25 mg/dL [facility] Urea nitrogen/Creatinine [Mass ratio] 14 mg/mg [facility] GGTon 06-12-2022 Gamma glutamyl transferase [Catalytic activity/Vol] 20 U/L 8 - 64 U/L [facility] HEMOGLOBIN [id number] By: [employer] on 06-12-2022 Average glucose Estimated from glycated hemoglobin (Bld) [Mass/Vol] 126 mg/dL [facility] HbA1c (Bld) [Mass fraction] 6.0 % High 4.7 - 5.6 % [facility] Interpretation and review of laboratory results Abnormal [facility] HEPATIC FUNCTION PANELon Albumin [Mass/Vol] 4.3 g/dL 3.5 - 5.0 g/dL [facility] ALP [Catalytic activity/Vol] 78 U/L 32 - 126 U/L [facility] ALT [Catalytic activity/Vol] 12 U/L 10 - 52 U/L [facility] AST [Catalytic activity/Vol] 16 U/L 10 - 39 U/L [facility] Bilirubin [Mass/Vol] 1.0 mg/dL <1.5 [facility] Bilirubin.direct [Mass/Vol] 0.2 mg/dL <0.3 [facility] Protein [Mass/Vol] 7.5 g/dL 6.4 - 8.3 g/dL [facility] No Panel Informationon 06-12 Interpretation and review of laboratory results Normal [facility] PTH INTACTOrdered By: Marli Lizarraga on 06-12-2022 Interpretation and review of laboratory results Abnormal [facility] Parathyrin.intact [Mass/Vol] 79.7 pg/mL High 14.0 - 72.0 pg/mL [facility] URINALYSIS REFLEX TO CULTURE PERFORMABLEon 06-12-2022 Appearance (U) Clear Clear [facility] Bacteria LM Ql (Urine sed) ABSENT ABSENT [facility] Color (U) Yellow Yellow [facility] Epithelial cells.squamous LM Ql (Urine sed) 1/hpf = 1+ 1/hpf = 1+, 2-5/hpf = 2+, 0/hpf = 0+, ABSENT [facility] Glucose Test strip (U) [Mass/Vol] Negative Negative [facility] Interpretation and review of laboratory results Abnormal [facility] Ketones (U) [Mass/Vol] Trace Abnormal Negative [facility] Leukocyte esterase Test strip Ql (U) Small Abnormal Negative [facility] Nitrite Ql (U) Negative Negative [facility] pH (U) 5.5 [pH] 5.0 - 7.0 [facility] Protein (U) [Mass/Vol] 30 mg/dL Abnormal Negative [facility] RBC (U) [#/Vol] Trace Abnormal Negative [facility] RBC LM.HPF (Urine sed) [#/Area] 0-2 0 - 2 /HPF [facility] Specific gravity (U) [Rel density] 1.026 [facility] Urobilinogen (U) [Mass/Vol] 0.2 E.U./dL 0.2 E.U/dL, 1.0 E.U/dL [facility] WBC LM.HPF (Urine sed) [#/Area] 10-20 Abnormal 0 - 5 /HPF [facility] URINE PROTEIN/CREA RATIO, RA NDOMon 06-12-2022 Creatinine (24H U) [Mass/Vol] 231.68 mg/dL [facility] Protein Unsp time (U) [Mass/Vol] 49 mg/dL [facility] Protein/Creatinine (U) [Mass ratio] 0.211 mg/g [facility] FK506 (TACROLIMUS) WHOLE BLO ODon 06-09-2022 Tacrolimus (FK506), Blood 9.8 ng/mL Normal 2.0-20.0 [facility] Comment on above: Result Comment: Trou gh (immediately following transplant) 15.0 . Trough (steady state, 2 weeks or more after transplant): 3.0 - 8.0 . Performed by LC-MS/MS technology. Performed By: #### U RTPCR #### [facility] [address] [place] [address] Dr. Dwight Waters ALBUMINon 06-06-2022 Albumin [Mass/Vol] 3.8 g/dL Normal 3.4-5.0 [facility] Comment on above: Performed By: #### C MP #### [facility] [address] [place] [address] Dr. Dwight Waters ALKALINE PHOSPHAon ALP [Catalytic activity/Vol] 82 U/L Normal 46-116 [facility] Comment on above: Performed By: #### C MP #### [facility] [address] [place] [address] Dr. Dwight Waters BILIRUBIN CONJUGATED (DIRECT )on 06-06-2022 BILI, CONJUGATED 0.2 mg/dL Normal 0.0-0.2 [facility] Comment on above: Performed By: #### C BC #### [facility] [address] [place] [address] Dr. Dwight Waters BILIRUBIN TOTALon 06-06-2022 Bilirubin [Mass/Vol] 1.0 mg/dL Normal 0.2-1.0 [facility] Comment on above: Performed By: #### C BC #### [facility] [address] [place] [address] Dr. Dwigth Waters BUNon 06-06-2022 Urea nitrogen [Mass/Vol] 18.0 mg/dL Normal 7.0-18.0 [facility] Comment on above: Performed By: #### C BC #### [facility] [address] [place] [address] Dr. Dwight Waters CALCIUMon 06-06-2022 Calcium [Mass/Vol] 9.4 mg/dL Normal 8.5-10.1 [facility] Comment on above: Performed By: #### C MP #### [facility] [address] [address] [address] Dwight Waters CBC AUTO DIFFon 06-06-2022 BASO # 0.1 103/ul Normal 0.0-0.1 [facility] Comment on above: Performed By: #### U RTPCR #### [facility] [address] [place] [address] Dr. Dwight Waters Basophils/100 WBC (Bld) 0.8 % Normal 0.2-2.0 [facility] Comment on above: Performed By: #### U RTPCR #### [facility] [address] [place] [address] Dr. Dwight Waters EO # 0.3 103/ul Normal 0.0-0.7 [facility] Comment on above: Performed By: #### U RTPCR #### [facility] [address] [place] [address] Dr. Dwight Waters Eosinophils/100 WBC (Bld) 3.3 % Normal 0.9-7.0 [facility] Comment on above: Performed By: #### U RTPCR #### [facility] [address] [place] [address] Dr. Dwight Waters Erythrocyte distribution width (RBC) [Ratio] 12.4 % Normal 11.0-15.0 [facility] Comment on above: Performed By: #### U RTPCR #### [facility] [address] [place] [address] Dr. Dwight Waters Hematocrit (Bld) [Volume fraction] 45.1 % Normal 42.0-54.0 [facility] Comment on above: Performed By: #### U RTPCR #### [facility] [address] [place] [address] Dr. Dwight Waters Hemoglobin (Bld) [Mass/Vol] 14.4 g/dL Normal 14.0-18.0 [facility] Comment on above: Performed By: #### U RTPCR #### [facility] [address] [place] [address] Dr. Dwight Waters IG # 0.01 10e3/ul Normal 0.00-0.03 [facility] Comment on above: Performed By: #### U RTPCR #### [facility] [address] [place] [address] Dr. Dwight Waters IG % 0.1 % Normal 0.0-0.5 [facility] Comment on above: Performed By: #### U RTPCR #### [facility] [address] [place] [address] Dr. Dwight Waters LYMPH # 2.2 103/ul Normal 1.2-3.8 [facility] Comment on above: Performed By: #### U RTPCR #### [facility] [address] [place] [address] Dr. Dwight Waters Lymphocytes/100 WBC (Bld) 30.0 % Normal 20.5-60.0 [facility] Comment on above: Performed By: #### U RTPCR #### [facility] [address] [place] [address] Dr. Dwight Waters MANUAL DIFF REQ NO Normal [facility] Comment on above: Performed By: #### U RTPCR #### [facility] [address] [place] [address] Dr. Dwight Waters MCH (RBC) [Entitic mass] 28.2 pg Normal 25.9-34.0 [facility] Comment on above: Performed By: #### U RTPCR #### [facility] [address] [place] [address] Dr. Dwight Waters MCHC (RBC) [Mass/Vol] 31.9 g/dL Normal 29.9-35.2 [facility] Comment on above: Performed By: #### U RTPCR #### [facility] [address] [place] [address] Dr. Dwight Waters MCV (RBC) [Entitic vol] 88.3 fL Normal 80.0-94.0 [facility] Comment on above: Performed By: #### U RTPCR #### [facility] [address] [place] [address] Dr. Dwight Waters MONO # 0.6 103/ul Normal 0.3-0.8 [facility] Comment on above: Performed By: #### U RTPCR #### [facility] [address] [place] [address] Dr. Dwight Waters Monocytes/100 WBC (Bld) 8.2 % Normal 1.7-12.0 [facility] Comment on above: Performed By: #### U RTPCR #### [facility] [address] [place] [address] Dr. Dwight Waters NEUT # 4.3 103/ul Normal 1.4-6.5 [facility] Comment on above: Performed By: #### U RTPCR #### [facility] [address] [place] [address] Dr. Dwight Waters Neutrophils/100 WBC (Bld) 57.6 % Normal 43.0-75.0 [facility] Comment on above: Performed By: #### U RTPCR #### [facility] [address] [place] [address] Dr. Dwight Waters Platelet mean volume (Bld) [Entitic vol] 9.7 fL Normal 9.5-13.5 [facility] Comment on above: Performed By: #### U RTPCR #### [facility] [address] [place] [address] Dr. Dwight Waters PLT 297 103/ul Normal 150-450 [facility] Comment on above: Performed By: #### U RTPCR #### [facility] [address] [place] [address] Dr. Dwight Waters RBC 5.11 106/ul Normal 4.70-6.10 [facility] Comment on above: Performed By: #### U RTPCR #### [facility] [address] [place] [address] Dr. Dwight Waters WBC 7.5 103/ul Normal 4.0-11.0 [facility] Comment on above: Performed By: #### U RTPCR #### [facility] [address] [place] [address] Dr. Dwight Waters CHLORIDEon 06-06-2022 Chloride [Moles/Vol] 107 mmol/L Normal 98-107 [facility] Comment on above: Performed By: #### C BC #### [facility] [address] [address] [address] Dwight Waters CO2on 06-06-2022 CO2 [Moles/Vol] 27.4 mmol/L Normal 21.0-32.0 [facility] Comment on above: Performed By: #### C BC #### [facility] [address] [address] [address] Dwight Waters CREATININEon 06-06-2022 Creatinine [Mass/Vol] 1.20 mg/dL Normal 0.70-1.30 [facility] Comment on above: Performed By: #### C BC #### [facility] [address] [address] [address] Dwight Waters EGFR-AF BENINESE >60 Normal >=60 [facility] Comment on above: Performed By: #### C BC #### [facility] [address] [place] [address] Dr. Dwight Waters EGFR-NON AF BENINESE >60 Normal >=60 [facility] Comment on above: Performed By: #### C BC #### [facility] [address] [place] [address] Dr. Dwight aWters GGTon 06-06-2022 Gamma glutamyl transferase [Catalytic activity/Vol] 29 U/L Normal 15-85 [facility] Comment on above: Performed By: #### C BC #### [facility] [address] [address] [address] Dwight Waters GLUCOSE BLOODon 06-06-2022 Glucose [Mass/Vol] 112 mg/dL Critically high 74-106 [facility] Comment on above: Performed By: #### C BC #### [facility] [address] [place] [address] Dr. Dwight Waters MAGNESIUMon 06-06-2022 Magnesium [Mass/Vol] 1.3 mg/dL Critically low 1.8-2.4 [facility] Comment on above: Performed By: #### C MP #### [facility] [address] [place] [address] Dr. Dwight Waters NAon 06-06-2022 Sodium [Moles/Vol] 141 mmol/L Normal 136-145 [facility] Comment on above: Performed By: #### C MP #### [facility] [address] [place] [address] Dr. Dwight Waters PHOSPHORUSon 06-06-2022 Phosphate [Mass/Vol] 3.1 mg/dL Normal 2.6-4.7 [facility] Comment on above: Performed By: #### C MP #### [facility] [address] [place] [address] Dr. Dwight Waters POTASSIUMon 06-06-2022 Potassium [Moles/Vol] 4.3 mmol/L Normal 3.5-5.1 [facility] Comment on above: Performed By: #### C BC #### [facility] [address] [place] [address] Dr. Dwight Waters SGOTon 06-06-2022 AST [Catalytic activity/Vol] 16 U/L Normal 15-37 [facility] Comment on above: Performed By: #### C BC #### [facility] [address] [place] [address] Dr. Dwight Waters SGPTon 06-06-2022 ALT [Catalytic activity/Vol] 50 U/L Normal 16-63 [facility] Comment on above: Performed By: #### C BC #### [facility] [address] [place] [address] Dr. Dwight Waters Bacteria identified Cx Nom ( Bld)on 05-21-2022 Bacteria identified Cx Nom (Unsp spec) NO GROWTH DAY 5 OF 5 [facility] Results may be compromised due to volume of BACT\ALERT bottle exceeding 10mLs . The optimal blood volume is 8-10 mls per aerobic/anaerobic blood culture bottle. [facility] CALCIUMon 05-20-2022 Calcium [Mass/Vol] 9.1 mg/dL 8.6 - 10. 5 mg/dL [facility] CBC,PLATELETSon 05-20-2022 Erythrocyte distribution width (RBC) [Ratio] 12.5 % 10.9 - 14.3 % [facility] Hematocrit (Bld) [Volume fraction] 37.1 % Low 39.6 - 48.8 % [facility] Hemoglobin (Bld) [Mass/Vol] 12.3 g/dL Low 13.4 - 16.8 g/dL [facility] Interpretation and review of laboratory results Abnormal [facility] MCH (RBC) [Entitic mass] 28.9 pg 26.1 - 33.3 pg [facility] MCHC (RBC) [Mass/Vol] 33.2 g/dL 31.9 - 36.5 g/dL [facility] MCV (RBC) [Entitic vol] 87.3 fL 79.0 - 94.5 fL [facility] Platelet mean volume (Bld) [Entitic vol] 9.9 fL 8.7 - 12.3 fL [facility] Platelets (Bld) [#/Vol] 234 10*3/uL 146 - 337 K/uL [facility] RBC (Bld) [#/Vol] 4.25 10*6/uL Low [facility] WBC (Bld) [#/Vol] 6.31 10*3/uL 3.73 - 10. 10 K/uL [facility] CHEM 7 (LYTES,BUN,CREA,GLUC) on 05-20-2022 Anion gap [Moles/Vol] 15 mmol/L 7 - 17 mmol/L [facility] Chloride [Moles/Vol] 111 mmol/L High 98 - 10 8 mmol/L [facility] CO2 [Moles/Vol] 22 mmol/L 21 - 31 mmol/L [facility] Creatinine [Mass/Vol] 1.10 mg/dL 0.70 - 1.30 mg/dL [facility] GFR/1.73 sq M.predicted CKD-EPI (S/P/Bld) [Vol rate/Area] 81 >=60 mL/min/1.73m2 [facility] Comment on above: Reported eGFR is bas ed on the CKD-EPI 2020 equation using creatinine, age, and sex. Glucose [Mass/Vol] 92 mg/dL 70 - 99 mg/dL [facility] Interpretation and review of laboratory results Abnormal [facility] Osmolality Calc [Osmolality] 302 [facility] Potassium [Moles/Vol] 4.4 mmol/L 3.5 - 5.0 mmol/L [facility] Sodium [Moles/Vol] 144 mmol/L 135 - 145 mmol/L [facility] Urea nitrogen [Mass/Vol] 18 mg/dL 7 - 25 mg/dL [facility] Urea nitrogen/Creatinine [Mass ratio] 16 mg/mg [facility] MAGNESIUMon 05-20-2022 Interpretation and review of laboratory results Abnormal [facility] Magnesium [Mass/Vol] 1.5 mg/dL Low 1.6 - 2 .6 mg/dL [facility] No Panel Informationon 05-20 Interpretation and review of laboratory results Normal [facility] PHOSPHATE, INORGANICon 05-20 Phosphate [Mass/Vol] 3.3 mg/dL 2.2 - 4 .6 mg/dL [facility] RF Unspecified body region V iews during [...] projections of kidneys, ureters, and bladder. FINDINGS: Clinical Research Manager images: Clinical Research Manager radiographs of the abdomen reveal a nonobstructive [...] Contrast refluxes up the ureter to the [place] right kidney that is grossly normal appearing. [...] projections of kidneys, ureters, and bladder. FINDINGS: Clinical Research Manager images: Clinical Research Manager radiographs of the abdomen reveal a nonobstructive [...] Contrast refluxes up the ureter to the [place] right kidney that is grossly normal appearing. [...] I have reviewed and approved this report. [facility] Radiology Study observation (narrative) [facility] RF Unspecified body region V iews during surgeryOrdered By: Lizz Campos on 05-20-2022 [facility] Work Phone: CALCIUMon 05-19-2022 Calcium [Mass/Vol] 9.2 mg/dL 8.6 - 10. 5 mg/dL [facility] Calcium [Mass/Vol] 8.6 mg/dL 8.6 - 10. 5 mg/dL [facility] CBC,PLATELETSon 05-19-2022 Erythrocyte distribution width (RBC) [Ratio] 12.4 % 10.9 - 14.3 % [facility] Hematocrit (Bld) [Volume fraction] 38.0 % Low 39.6 - 48.8 % [facility] Hemoglobin (Bld) [Mass/Vol] 12.0 g/dL Low 13.4 - 16.8 g/dL [facility] Interpretation and review of laboratory results Abnormal [facility] MCH (RBC) [Entitic mass] 28.6 pg 26.1 - 33.3 pg [facility] MCHC (RBC) [Mass/Vol] 31.6 g/dL Low 31.9 - 36.5 g/dL [facility] MCV (RBC) [Entitic vol] 90.5 fL 79.0 - 94.5 fL [facility] Platelet mean volume (Bld) [Entitic vol] 9.7 fL 8.7 - 12.3 fL [facility] Platelets (Bld) [#/Vol] 199 10*3/uL 146 - 337 K/uL [facility] RBC (Bld) [#/Vol] 4.20 10*6/uL [facility] [#/Vol] 6.81 10*3/uL 3.73 - 10. 10 K/uL [facility] CHEM 7 (LYTES,BUN,CREA,GLUC) on 05-19-2022 Anion gap [Moles/Vol] 13 mmol/L 7 - 17 mmol/L [facility] Chloride [Moles/Vol] 105 mmol/L 98 - 10 8 mmol/L [facility] CO2 [Moles/Vol] 30 mmol/L 21 - 31 mmol/L [facility] Creatinine [Mass/Vol] 1.39 mg/dL High 0.70 - 1.30 mg/dL [facility] GFR/1.73 sq M.predicted CKD-EPI (S/P/Bld) [Vol rate/Area] 61 >=60 mL/min/1.73m2 [facility] Comment on above: Reported eGFR is bas ed on the CKD-EPI 2020 equation using creatinine, age, and sex. Glucose [Mass/Vol] 121 mg/dL High 70 - 99 mg/dL [facility] Interpretation and review of laboratory results Abnormal [facility] Osmolality Calc [Osmolality] 303 [facility] Potassium [Moles/Vol] 3.8 mmol/L 3.5 - 5.0 mmol/L [facility] Sodium [Moles/Vol] 144 mmol/L 135 - 145 mmol/L [facility] Urea nitrogen [Mass/Vol] 18 mg/dL 7 - 25 mg/dL [facility] Urea nitrogen/Creatinine [Mass ratio] 13 mg/mg [facility] Anion gap [Moles/Vol] 15 mmol/L 7 - 17 mmol/L [facility] Chloride [Moles/Vol] 106 mmol/L 98 - 10 8 mmol/L [facility] CO2 [Moles/Vol] 24 mmol/L 21 - 31 mmol/L [facility] Creatinine [Mass/Vol] 1.46 mg/dL High 0.70 - 1.30 mg/dL [facility] GFR/1.73 sq M.predicted CKD-EPI (S/P/Bld) [Vol rate/Area] 58 Low >=60 mL/min/1.73m2 [facility] Comment on above: Reported eGFR is bas ed on the CKD-EPI 2020 equation using creatinine, age, and sex. Glucose [Mass/Vol] 103 mg/dL High 70 - 99 mg/dL [facility] Interpretation and review of laboratory results Abnormal [facility] Osmolality Calc [Osmolality] 298 [facility] Potassium [Moles/Vol] 3.9 mmol/L 3.5 - 5.0 mmol/L [facility] Sodium [Moles/Vol] 141 mmol/L 135 - 145 mmol/L [facility] Urea nitrogen [Mass/Vol] 21 mg/dL 7 - 25 mg/dL [facility] Urea nitrogen/Creatinine [Mass ratio] 14 mg/mg [facility] MAGNESIUMon 05-19-2022 Magnesium [Mass/Vol] 2.0 mg/dL 1.6 - 2 .6 mg/dL [facility] Magnesium [Mass/Vol] 1.7 mg/dL 1.6 - 2 .6 mg/dL [facility] No Panel Informationon 05-19 Interpretation and review of laboratory results Normal [facility] Interpretation and review of laboratory results Normal [facility] PHOSPHATE, INORGANICon 05-19 Phosphate [Mass/Vol] 3.0 mg/dL 2.2 - 4 .6 mg/dL [facility] Phosphate [Mass/Vol] 2.7 mg/dL 2.2 - 4 .6 mg/dL [facility] CALCIUMon 05-18-2022 Calcium [Mass/Vol] 9.1 mg/dL 8.6 - 10. 5 mg/dL [facility] CBC,PLATELETSon 05-18-2022 Erythrocyte distribution width (RBC) [Ratio] 12.5 % 10.9 - 14.3 % [facility] Hematocrit (Bld) [Volume fraction] 37.3 % Low 39.6 - 48.8 % [facility] Hemoglobin (Bld) [Mass/Vol] 11.9 g/dL Low 13.4 - 16.8 g/dL [facility] Interpretation and review of laboratory results Abnormal [facility] MCH (RBC) [Entitic mass] 28.9 pg 26.1 - 33.3 pg [facility] MCHC (RBC) [Mass/Vol] 31.9 g/dL 31.9 - 36.5 g/dL [facility] MCV (RBC) [Entitic vol] 90.5 fL 79.0 - 94.5 fL [facility] Platelet mean volume (Bld) [Entitic vol] 10.1 fL 8.7 - 12.3 fL [facility] Platelets (Bld) [#/Vol] 189 10*3/uL 146 - 337 K/uL [facility] RBC (Bld) [#/Vol] 4.12 10*6/uL Low [facility] WBC (Bld) [#/Vol] 10.19 10*3/uL High 3.73 - 10 .10 K/uL [facility] CHEM 7 (LYTES,BUN,CREA,GLUC) on 05-18-2022 Anion gap [Moles/Vol] 13 mmol/L 7 - 17 mmol/L [facility] Chloride [Moles/Vol] 102 mmol/L 98 - 10 8 mmol/L [facility] CO2 [Moles/Vol] 26 mmol/L 21 - 31 mmol/L [facility] Creatinine [Mass/Vol] 1.91 mg/dL High 0.70 - 1.30 mg/dL [facility] GFR/1.73 sq M.predicted CKD-EPI (S/P/Bld) [Vol rate/Area] 42 Low >=60 mL/min/1.73m2 [facility] Comment on above: Reported eGFR is bas ed on the CKD-EPI 2020 equation using creatinine, age, and sex. Glucose [Mass/Vol] 158 mg/dL High 70 - 99 mg/dL [facility]ality [facility]ality] [facility] Potassium [Moles/Vol] 4.0 mmol/L 3.5 - 5.0 [facility]L [facility] Sodium [Moles/Vol] 137 mmol/L 135 - 145 mmol/L [facility] Urea nitrogen [Mass/Vol] 30 mg/dL High 7 - 25 [facility] Urea nitrogen/Creatinine [Mass ratio] 16 mg[facility] CHEM 7 (LYTES,BUN,CREA,GLUC) Ordered By: Tamiko Thapa on 05-18-2022 Anion gap [Moles/Vol] 13 mmol/L 7 - 17 [facility] Chloride [Moles/Vol] 104 mmol/L 98 - 10 8 mmol/L [facility] CO2 [Moles/Vol] 26 mmol/L 21 - 31 [facility] Creatinine [Mass/Vol] 2.96 mg/dL High 0.70 - 1.30 mg/dL [facility] GFR/1.73 sq M.predicted CKD-EPI (S/P/Bld) [Vol rate/Area] 25 Low >=60 mL/min/1.73m2 [facility] Comment on above: Reported eGFR is bas ed on the CKD-EPI 2020 equation using creatinine, age, and sex. Glucose [Mass/Vol] 136 mg/dL High 70 - 99 mg/dL [facility] Interpretation and review of laboratory results Abnormal [facility] Osmolality Calc [Osmolality] [facility] Potassium [Moles/Vol] 4.2 mmol/L 3.5 - 5.0 mmol/L [facility] Sodium [Moles/Vol] 139 mmol/L 135 - 145 mmol/L [facility] Urea nitrogen [Mass/Vol] 41 mg/dL High 7 - 25 mg/dL [facility] Urea nitrogen/Creatinine [Mass ratio] 14 mg/mg [facility] MAGNESIUMon 05-18-2022 Magnesium [Mass/Vol] 2.2 mg/dL 1.6 - 2 .6 mg/dL [facility] Interpretation and review of laboratory results Normal [facility] Magnesium [Mass/Vol] 1.7 mg/dL 1.6 - 2 .6 mg/dL [facility] No Panel Informationon 05-18 Interpretation and review of laboratory results Abnormal [facility] Interpretation and review of laboratory results Normal [facility] PHOSPHATE, INORGANICon 05-18 Phosphate [Mass/Vol] 2.0 mg/dL Low 2.2 - 4 .6 mg/dL [facility] Interpretation and review of laboratory results Normal [facility] Phosphate [Mass/Vol] 2.8 mg/dL 2.2 - 4 .6 mg/dL [facility] PT,INR,PTTon 05-18-2022 aPTT Coag (PPP) [Time] 31.0 s [facility] INR Coag (Bld) [Relative time] 1.1 {INR} [facility] Interpretation and review of laboratory results Abnormal [facility] PT Coag (PPP) [Time] 14.4 s High [facility] URINE CULTUREOrdered By: Sylvia Campos on 05-18-2022 Bacteria identified Cx Nom (Unsp spec) No Growth [facility] CBC,PLATELETSon 05-17-2022 Erythrocyte distribution width (RBC) [Ratio] 12.8 % 10.9 - 14.3 % [facility] Hematocrit (Bld) [Volume fraction] 42.8 % 39.6 - 48.8 % [facility] Hemoglobin (Bld) [Mass/Vol] 13.3 g/dL Low 13.4 - 16.8 g/dL [facility] Interpretation and review of laboratory results Abnormal [facility] MCH (RBC) [Entitic mass] 28.9 pg 26.1 - 33.3 pg [facility] MCHC (RBC) [Mass/Vol] 31.1 g/dL Low 31.9 - 36.5 g/dL [facility] MCV (RBC) [Entitic vol] 92.8 fL 79.0 - 94.5 fL [facility] Platelet mean volume (Bld) [Entitic vol] 10.3 fL 8.7 - 12.3 fL [facility] Platelets (Bld) [#/Vol] 188 10*3/uL 146 - 337 K/uL [facility] RBC (Bld) [#/Vol] 4.61 10*6/uL [facility] WBC (Bld) [#/Vol] 16.61 10*3/uL High 3.73 - 10 .10 K/uL [facility] CHEM 7 (LYTES,BUN,CREA,GLUC) Ordered By: Kaylah Mc on 05-17-2022 Anion gap [Moles/Vol] 15 mmol/L 7 - 17 mmol/L [facility] Chloride [Moles/Vol] 103 mmol/L 98 - 10 8 mmol/L [facility] CO2 [Moles/Vol] 23 mmol/L 21 - 31 mmol/L [facility] Creatinine [Mass/Vol] 5.95 mg/dL High 0.70 - 1.30 mg/dL [facility] GFR/1.73 sq M.predicted CKD-EPI (S/P/Bld) [Vol rate/Area] 11 Low >=60 mL/min/1.73m2 [facility] Comment on above: Reported eGFR is bas ed on the CKD-EPI 2020 equation using creatinine, age, and sex. Glucose [Mass/Vol] 165 mg/dL High 70 - 99 mg/dL [facility] Interpretation and review of laboratory results Abnormal [facility] Osmolality Calc [Osmolality] 305 [facility] Potassium [Moles/Vol] 4.6 mmol/L 3.5 - 5.0 mmol/L [facility] Sodium [Moles/Vol] 136 mmol/L 135 - 145 mmol/L [facility] Urea nitrogen [Mass/Vol] 52 mg/dL High 7 - 25 mg/dL [facility] Urea nitrogen/Creatinine [Mass ratio] 9 mg/mg [facility] CHEM 7 (LYTES,BUN,CREA,GLUC) Ordered By: Kehinde Olsen on 05-17-2022 Anion gap [Moles/Vol] 24 mmol/L High 7 - 17 mmol/L [facility] Chloride [Moles/Vol] 100 mmol/L 98 - 10 8 mmol/L [facility] CO2 [Moles/Vol] 16 mmol/L Low 21 - 31 mmol/L [facility] Creatinine [Mass/Vol] 8.08 mg/dL High 0.70 - 1.30 mg/dL [facility] GFR/1.73 sq M.predicted CKD-EPI (S/P/Bld) [Vol rate/Area] 7 Low >=60 mL/min/1.73m2 [facility] Comment on above: Reported eGFR is bas ed on the CKD-EPI 2020 equation using creatinine, age, and sex. Glucose [Mass/Vol] 164 mg/dL High 70 - 99 mg/dL [facility] Interpretation and review of laboratory results Abnormal [facility] Osmolality Calc [Osmolality] 305 [facility] Potassium [Moles/Vol] 5.0 mmol/L 3.5 - 5.0 mmol/L [facility] Sodium [Moles/Vol] 135 mmol/L 135 - 145 mmol/L [facility] Urea nitrogen [Mass/Vol] 56 mg/dL High 7 - 25 mg/dL [facility] Urea nitrogen/Creatinine [Mass ratio] 7 mg/mg [facility] LAVENDER TOP TUBEon 05-17-20 [facility] MAGNESIUMon 05-17-2022 Interpretation and review of laboratory results Normal [facility] Magnesium [Mass/Vol] 1.8 mg/dL 1.6 - 2 .6 mg/dL [facility] Interpretation and review of laboratory results Normal [facility] Magnesium [Mass/Vol] 1.6 mg/dL 1.6 - 2 .6 mg/dL [facility] No [facility]OS[facility] INORGANICon 05-17 Interpretation and review of laboratory results Abnormal [facility] Phosphate [Mass/Vol] 4.9 mg/dL High 2.2 - 4 .6 mg/dL [facility] PT,INR,PTTon 05-17-2022 aPTT Coag (PPP) [Time] 33.0 s [facility] INR Coag (Bld) [Relative time] 1.3 {INR} High [facility] Interpretation and review of laboratory results Abnormal [facility] PT Coag (PPP) [Time] 15.7 s High [facility] Portable XR Chest Viewson IMPRESSION: No acute [...] Stable cardiomegaly. IMPRESSION IMPRESSION: No acute findings. [facility] Radiology Study observation (narrative) [facility] Portable XR Chest ViewsOrder ed By: David Sanz on 05-17-2022 [facility] Work Phone: URINALYSISOrdered By: Michael patel Ma on 05-17-2022 Appearance (U) Cloudy Abnormal Clear [facility] Comment on above: Results may be inacc urate due to color interference. Clinical correlation recommended. Bacteria LM Ql (Urine sed) ABSENT ABSENT [facility] Color (U) Red Abnormal Yellow [facility] Comment on above: Results may be inacc urate due to color interference. Clinical correlation recommended. Epithelial cells.squamous LM Ql (Urine sed) ABSENT 1/hpf = 1+, 2-5/hpf = 2+, 0/hpf = 0+, ABSENT [facility] Glucose Test strip (U) [Mass/Vol] Negative Negative [facility] Comment on above: Results may be inacc urate due to color interference. Clinical correlation recommended. Interpretation and review of laboratory results Abnormal [facility] Ketones (U) [Mass/Vol] Trace Abnormal Negative [facility] Comment on above: Results may be inacc urate due to color interference. Clinical correlation recommended. Leukocyte esterase Test strip Ql (U) Large Abnormal Negative [facility] Comment on above: Results may be inacc urate due to color interference. Clinical correlation recommended. Nitrite Ql (U) Negative Negative [facility] Comment on above: Results may be inacc urate due to color interference. Clinical correlation recommended. pH (U) 5.0 [pH] 5.0 - 7.0 [facility] Comment on above: Results may be inacc urate due to color interference. Clinical correlation recommended. Protein (U) [Mass/Vol] mg/dL Abnormal Negative [facility] Comment on above: Results may be inacc urate due to color interference. Clinical correlation recommended. RBC (U) [#/Vol] Large Abnormal Negative [facility] Comment on above: Results may be inacc urate due to color interference. Clinical correlation recommended. RBC LM.HPF (Urine sed) [#/Area] /[HPF] Abnormal 0 - 2 /HPF [facility] Specific gravity (U) [Rel density] 1.016 [facility] Comment on above: Results may be inacc urate due to color interference. Clinical correlation recommended. Urobilinogen (U) [Mass/Vol] 0.2 E.U./dL 0.2 E.U/dL, 1.0 E.U/dL [facility] Comment on above: Results may be inacc urate due to color interference. Clinical correlation recommended. WBC LM.HPF (Urine sed) [#/Area] /[HPF] Abnormal 0 - 5 /HPF [facility] URINE CULTUREOrdered By: Tyler Tiwari on 05-17-2022 Bacteria identified Cx Nom (Unsp spec) No Growth [facility] CBC,PLATELETSon 05-16-2022 Erythrocyte distribution width (RBC) [Ratio] 12.9 % 10.9 - 14.3 % [facility] Hematocrit (Bld) [Volume fraction] 46.5 % 39.6 - 48.8 % [facility] Hemoglobin (Bld) [Mass/Vol] 14.7 g/dL 13.4 - 16.8 g/dL [facility] Interpretation and review of laboratory results Abnormal [facility] MCH (RBC) [Entitic mass] 28.3 pg 26.1 - 33.3 pg [facility] MCHC (RBC) [Mass/Vol] 31.6 g/dL Low 31.9 - 36.5 g/dL [facility] MCV (RBC) [Entitic vol] 89.6 fL 79.0 - 94.5 fL [facility] Platelet mean volume (Bld) [Entitic vol] 10.3 fL 8.7 - 12.3 fL [facility] Platelets (Bld) [#/Vol] 188 10*3/uL 146 - 337 K/uL [facility] RBC (Bld) [#/Vol] 5.19 10*6/uL [facility] WBC (Bld) [#/Vol] 12.55 10*3/uL High 3.73 - 10 .10 K/uL [facility] CHEM 7 (LYTES,BUN,CREA,GLUC) Ordered By: Alma Pena on 05-16-2022 Anion gap [Moles/Vol] 14 mmol/L 7 - 17 mmol/L [facility] Chloride [Moles/Vol] 103 mmol/L 98 - 10 8 mmol/L [facility] CO2 [Moles/Vol] 22 mmol/L 21 - 31 mmol/L [facility] Creatinine [Mass/Vol] 6.09 mg/dL High 0.70 - 1.30 mg/dL [facility] GFR/1.73 sq M.predicted CKD-EPI (S/P/Bld) [Vol rate/Area] 10 Low >=60 mL/min/1.73m2 [facility] Comment on above: Reported eGFR is bas ed on the CKD-EPI 2020 equation using creatinine, age, and sex. Glucose [Mass/Vol] 134 mg/dL High 70 - 99 mg/dL [facility] Interpretation and review of laboratory results Abnormal [facility] Osmolality Calc [Osmolality] 298 [facility] Potassium [Moles/Vol] 4.9 mmol/L 3.5 - 5.0 mmol/L [facility] Sodium [Moles/Vol] 134 mmol/L Low 135 - 145 mmol/L [facility] Comment on above: Results inconsistent with previous results Urea nitrogen [Mass/Vol] 49 mg/dL High 7 - 25 mg/dL [facility] Urea nitrogen/Creatinine [Mass ratio] 8 mg/mg [facility] CHEM 7 (LYTES,BUN,CREA,GLUC) on 05-16-2022 Anion gap [Moles/Vol] 17 mmol/L 7 - 17 mmol/L [facility] Chloride [Moles/Vol] 106 mmol/L 98 - 10 8 mmol/L [facility] CO2 [Moles/Vol] 22 mmol/L 21 - 31 mmol/L [facility] Creatinine [Mass/Vol] 5.23 mg/dL High 0.70 - 1.30 mg/dL [facility] GFR/1.73 sq M.predicted CKD-EPI (S/P/Bld) [Vol rate/Area] 13 Low >=60 mL/min/1.73m2 [facility] Comment on above: Reported eGFR is bas ed on the CKD-EPI 2020 equation using creatinine, age, and sex. Glucose [Mass/Vol] 116 mg/dL High 70 - 99 mg/dL [facility] Interpretation and review of laboratory results Abnormal [facility] Osmolality Calc [Osmolality] 305 [facility] Potassium [Moles/Vol] 4.6 mmol/L 3.5 - 5.0 mmol/L [facility] Sodium [Moles/Vol] 140 mmol/L 135 - 145 mmol/L [facility] Urea nitrogen [Mass/Vol] 42 mg/dL High 7 - 25 mg/dL [facility] Urea nitrogen/Creatinine [Mass ratio] 8 mg/mg [facility] EXTRA MICROon 05-16-2022 [facility] LT BLUE TOP TUBEon 2 [facility] LYTES (NA, K, CL) - URINE - RANDOMon 05-16-2022 Chloride (24H U) [Moles/Vol] 68 mmol/L [facility] Potassium (24H U) [Moles/Vol] 36.7 mmol/L [facility] Sodium (24H U) [Moles/Vol] 55 mmol/L [facility] The reference range has not been established for random urine specimens. The test result should be integrated into the clinical context for interpretation. [facility] MAGNESIUMon 05-16-2022 Interpretation and review of laboratory results Normal [facility] Magnesium [Mass/Vol] 1.7 mg/dL 1.6 - 2 .6 mg/dL [facility] NOVEL CORONAVIRUS PCROrdered By: Edson Candelario on 05-16-2022 SARS-CoV-2 (COVID-19) RNA ESTELITA+probe Ql (Unsp spec) Not detected NOT DETECTED [facility] Comment on above: [facility] Negative results do not [...] use authorization for use by authorized laboratories. [facility] No Panel Informationon 05-16 [facility] OSMOLALITY, URINEon 05-16-20 Interpretation and review of laboratory results Normal [facility] Osmolality (U) [Osmolality] 320 mosm/kg [facility] The reference range has not been established for random urine specimens. The test result should be integrated into the clinical context for interpretation. [facility] PROCALCITONINon 05-16-2022 Interpretation and review of laboratory results Normal [facility] Procalcitonin [Mass/Vol] 0.18 ng/mL <0.50 [facility] Comment on above: Procalcitonin is an FDA-approved assay to help manage antibiotic treatment in patients with sepsis/septic shock and lower respiratory tract infections. Specifically, trending procalcitonin in these situations can be used to reduce the duration of antibiotics. Please refer to the Procalcitonin Guide on the [employer] Webpage for more guidance on how to use and trend procalcitonin in various clinical settings. [email or web address]/[email or web address]=[email or web address] Two common cutoffs associated with bacterial infections are as follows. Respiratory tract infections: >0.25 ng/mL Sepsis/septic shock: >0.5 ng/mL Procalcitonin should not be used alone as a diagnostic tool, however. All procalcitonin results should be interpreted in association with the patients clinical condition and all laboratory findings. [facility] PT,INR,PTTon 05-16-2022 aPTT Coag (PPP) [Time] 30.3 s [facility] INR Coag (Bld) [Relative time] 1.1 {INR} [facility] Interpretation and review of laboratory results Normal [facility] PT Coag (PPP) [Time] 14.1 s [facility] SARS-CoV-2 (COVID-19) RNA NA A+probe Ql (Unsp spec)Ordered By: Edson Candelario on 05-16-2022 Interpretation and review of laboratory results Normal [facility] TACROLIMUS LEVEL, TROUGH (MI E DRUG LEVEL)Ordered By: Mariama Nick on 05-16-2022 Interpretation and review of laboratory results Normal [facility] Tacrolimus (Bld) [Mass/Vol] 4.1 ng/mL Bone Marrow Transplant: 4.0-12.0, Therapeutic: 5.0-15.0 [facility] Method performed is a chemiluminescent microparticle immunoasssay on the [employer] i2000. The range is based on experience at [facility] and users should be aware that target concentrations vary widely depending on concomitant therapy, time post-transplant, and desired degree of immunosuppression. [facility] URINE PROTEIN/CREA RATIO, RA Smiley 05-16-2022 Creatinine (24H U) [Mass/Vol] 59.82 mg/dL [facility] Protein Unsp time (U) [Mass/Vol] 111 mg/dL [facility] Protein/Creatinine (U) [Mass ratio] 1.856 mg/g [facility] US for transplanted kidney l imitedon 05-16-2022 [...] appearing vascular flow in the transplant kidney. [facility] Radiology Study observation (narrative) [facility] US for transplanted kidney l imitedOrdered By: Rosendo Matute on 05-16-2022 [facility] Work Phone: CBC AND ELECTRONIC DIFFon Basophils (Bld) [#/Vol] 10*3/uL 0.00 - 0.09 K/uL [facility] Basophils/100 WBC (Bld) 0.2 % [facility] Differential cell count method Nom (Bld) Electronic Differential [facility] Eosinophils (Bld) [#/Vol] 10*3/uL 0.00 - 0.48 K/uL [facility] Eosinophils/100 WBC (Bld) 0.0 % [facility] Erythrocyte distribution width (RBC) [Ratio] 12.8 % 10.9 - 14.3 % [facility] Hematocrit (Bld) [Volume fraction] 46.0 % 39.6 - 48.8 % [facility] Hemoglobin (Bld) [Mass/Vol] 14.6 g/dL 13.4 - 16.8 g/dL [facility] Immature granulocytes (Bld) [#/Vol] 0.07 10*3/uL <=0.08 [facility] Immature granulocytes/100 WBC (Bld) 0.4 % [facility] Interpretation and review of laboratory results Abnormal [facility] Lymphocytes (Bld) [#/Vol] 1.49 10*3/uL 0.83 - 3.57 K/uL [facility] Lymphocytes/100 WBC (Bld) 9.4 % [facility] MCH (RBC) [Entitic mass] 28.2 pg 26.1 - 33.3 pg [facility] MCHC (RBC) [Mass/Vol] 31.7 g/dL Low 31.9 - 36.5 g/dL [facility] MCV (RBC) [Entitic vol] 89.0 fL 79.0 - 94.5 fL [facility] Monocytes (Bld) [#/Vol] 1.45 10*3/uL High 0.24 - 0.93 K/uL [facility] Monocytes/100 WBC (Bld) 9.2 % [facility] Neutrophils (Bld) [#/Vol] 12.77 10*3/uL High 1.57 - 6.19 K/uL [facility] Nucleated RBC/100 WBC (Bld) [Ratio] 0.0 % <=0.2 /100 WBC [facility] Platelet mean volume (Bld) [Entitic vol] 9.9 fL 8.7 - 12.3 fL [facility] Platelets (Bld) [#/Vol] 250 10*3/uL 146 - 337 K/uL [facility] RBC (Bld) [#/Vol] 5.17 10*6/uL [facility] Segmented neutrophils/100 WBC (Bld) 80.8 % [facility] WBC (Bld) [#/Vol] 15.81 10*3/uL High 3.73 - 10 .10 K/uL [facility] CBC AUTO DIFFon 05-15-2022 BASO # 0.0 103/ul Normal 0.0-0.1 [facility] Comment on above: Performed By: #### C BC #### [facility] [address] [address] [address] Dwight Waters Basophils/100 WBC (Bld) 0.3 % Normal 0.2-2.0 [facility] Comment on above: Performed By: #### C BC #### [facility] [address] [address] [address] Dwight Waters EO # 0.1 103/ul Normal 0.0-0.7 [facility] Comment on above: Performed By: #### C BC #### [facility] [address] [place] [address] Dr. Dwight Waters Eosinophils/100 WBC (Bld) 0.8 % Critically low 0.9-7.0 [facility] Comment on above: Performed By: #### C BC #### [facility] [address] [address] [address] Dwight Waters Erythrocyte distribution width (RBC) [Ratio] 12.7 % Normal 11.0-15.0 [facility] Comment on above: Performed By: #### C BC #### [facility] [address] [place] [address] Dr. Dwight Waters Hematocrit (Bld) [Volume fraction] 43.5 % Normal 42.0-54.0 [facility] Comment on above: Performed By: #### C BC #### [facility] [address] [address] [address] Dwight Waters Hemoglobin (Bld) [Mass/Vol] 14.4 g/dL Normal 14.0-18.0 [facility] Comment on above: Performed By: #### C BC #### [facility] [address] [address] [address] Dwight Waters IG # 0.02 10e3/ul Normal 0.00-0.03 [facility] Comment on above: Performed By: #### C BC #### [facility] [address] [place] [address] Dr. Dwight Waters IG % 0.2 % Normal 0.0-0.5 [facility] Comment on above: Performed By: #### C BC #### [facility] [address] [place] [address] Dr. Dwight Waters LYMPH # 1.5 103/ul Normal 1.2-3.8 [facility] Comment on above: Performed By: #### C BC #### [facility] [address] [place] [address] Dr. Dwight Waters Lymphocytes/100 WBC (Bld) 12.5 % Critically low 20.5-60.0 [facility] Comment on above: Performed By: #### C BC #### [facility] [address] [place] [address] Dr. Dwight Waters MANUAL DIFF REQ NO Normal [facility] Comment on above: Performed By: #### C BC #### [facility] [address] [place] [address] Dr. Dwight Waters MCH (RBC) [Entitic mass] 28.6 pg Normal 25.9-34.0 [facility] Comment on above: Performed By: #### C BC #### [facility] [address] [place] [address] Dr. Dwight Waters MCHC (RBC) [Mass/Vol] 33.1 g/dL Normal 29.9-35.2 [facility] Comment on above: Performed By: #### C BC #### [facility] [address] [place] [address] Dr. Dwight Waters MCV (RBC) [Entitic vol] 86.3 fL Normal 80.0-94.0 [facility] Comment on above: Performed By: #### C BC #### [facility] [address] [place] [address] Dr. Dwight Waters MONO # 1.0 103/ul Critically high 0.3-0.8 [facility] Comment on above: Performed By: #### C BC #### [facility] [address] [address] [address] Dwight Waters Monocytes/100 WBC (Bld) 8.2 % Normal 1.7-12.0 [facility] Comment on above: Performed By: #### C BC #### [facility] [address] [address] [address] Dwight Waters NEUT # 9.1 103/ul Critically high 1.4-6.5 [facility] Comment on above: Performed By: #### C BC #### [facility] [address] [address] [address] Dwight Waters Neutrophils/100 WBC (Bld) 78.0 % Critically high 43.0-75.0 [facility] Comment on above: Performed By: #### C BC #### [facility] [address] [place] [address] Dr. Dwight Waters Platelet mean volume (Bld) [Entitic vol] 9.8 fL Normal 9.5-13.5 [facility] Comment on above: Performed By: #### C BC #### [facility] [address] [address] [address] Dwight Waters PLT 251 103/ul Normal 150-450 [facility] Comment on above: Performed By: #### C BC #### [facility] [address] [place] [address] Dr. Dwight Waters RBC 5.04 106/ul Normal 4.70-6.10 [facility] Comment on above: Performed By: #### C BC #### [facility] [address] [place] [address] Dr. Dwight Waters WBC 11.6 103/ul Critically high 4.0-11.0 [facility] Comment on above: Performed By: #### C BC #### [facility] [address] [place] [address] Dr. Dwight Waters CHEM 6 (LYTES, BUN CREA)on 0 05-15-2022 Anion gap [Moles/Vol] 12 mmol/L 7 - 17 mmol/L [facility] Chloride [Moles/Vol] 105 mmol/L 98 - 10 8 mmol/L [facility] CO2 [Moles/Vol] 26 mmol/L 21 - 31 mmol/L [facility] Creatinine [Mass/Vol] 2.85 mg/dL High 0.70 - 1.30 mg/dL [facility] GFR/1.73 sq M.predicted CKD-EPI (S/P/Bld) [Vol rate/Area] 26 Low >=60 mL/min/1.73m2 [facility] Comment on above: Reported eGFR is bas ed on the CKD-EPI 2020 equation using creatinine, age, and sex. Potassium [Moles/Vol] 4.6 mmol/L 3.5 - 5.0 mmol/L [facility] Sodium [Moles/Vol] 138 mmol/L 135 - 145 mmol/L [facility] Urea nitrogen [Mass/Vol] 32 mg/dL High 7 - 25 [facility] Urea [facility]/Creatinine [Mass ratio] 11 [facility]PELVIS WO CONon 05-15 CT [...] transplanted kidney with moderate right-sided hydronephrosis. Atrophic [place] kidneys with moderate right-sided hydronephrosis. Multiple nonobstructive [...] transplanted kidney with moderate right-sided hydronephrosis. Atrophic [place] kidneys with moderate right-sided hydronephrosis. Multiple nonobstructive right renal calculi measuring up to 8 mm. FOLLOW-UP: Follow-up as clinically indicated. Electronically authenticated by: LYNDSAY JEAN Date: 2022-05-15 05:04 Normal [facility] Covid-19 PCR (CVDTB)on 04-30 SARS-CoV-2 (COVID-19) RNA ESTELITA+probe Ql (Unsp spec) Not detected Normal NOT DETECTED [facility] Comment on above: Result Comment: When diagnostic [...] for this test is supported by the [employer] and [employer]'s declaration that [...] used). Performed By: #### U RTPCR #### [facility] [address] [address] [address] Dwight Waters GLUCOSEon 05-15-2022 Glucose [Mass/Vol] 141 mg/dL High 70 - 99 mg/dL [facility] GOLD TOP TUBEon 05-15-2022 [facility] HEPATIC FUNCTION PANELon Albumin [Mass/Vol] 4.3 g/dL 3.5 - 5.0 g/dL [facility] ALP [Catalytic activity/Vol] 85 U/L 32 - 126 U/L [facility] ALT [Catalytic activity/Vol] 13 U/L 10 - 52 U/L [facility] AST [Catalytic activity/Vol] 15 U/L 10 - 39 U/L [facility] Bilirubin [Mass/Vol] 0.8 mg/dL <1.5 [facility] Bilirubin.direct [Mass/Vol] 0.2 mg/dL <0.3 [facility] Interpretation and review of laboratory results Normal [facility] Protein [Mass/Vol] 7.3 g/dL 6.4 - 8.3 g/dL [facility] LIPASEon 05-15-2022 Lipase [Catalytic activity/Vol] 8 U/L Low 11 - 82 U/L [facility] No Panel Informationon 05-15 Interpretation and review of laboratory results Abnormal [facility] PROF 14(COMP METB)on 022 Albumin [Mass/Vol] 3.8 g/dL Normal 3.4-5.0 [facility] Comment on above: Performed By: #### U RTPCR #### [facility] [address] [place] [address] Dr. Dwight Waters Albumin/Globulin [Mass ratio] 1.1 {ratio} Normal [facility] Comment on above: Performed By: #### U RTPCR #### [facility] [address] [place] [address] Dr. Dwight Waters ALP [Catalytic activity/Vol] 92 U/L Normal 46-116 [facility] Comment on above: Performed By: #### U RTPCR #### [facility] [address] [place] [address] Dr. Dwight Waters ALT [Catalytic activity/Vol] 25 U/L Normal 16-63 [facility] Comment on above: Performed By: #### U RTPCR #### [facility] [address] [place] [address] Dr. Dwight Waters Anion gap [Moles/Vol] 14.6 mmol/L Normal [facility] Comment on above: Performed By: #### U RTPCR #### [facility] [address] [address] [address] Dwight Waters AST [Catalytic activity/Vol] 17 U/L Normal 15-37 [facility] Comment on above: Performed By: #### U RTPCR #### [facility] [address] [address] [address] Dwight Waters Bilirubin [Mass/Vol] 0.6 mg/dL Normal 0.2-1.0 [facility] Comment on above: Performed By: #### U RTPCR #### [facility] [address] [address] [address] Dwight Waters Calcium [Mass/Vol] 9.9 mg/dL Normal 8.5-10.1 [facility] Comment on above: Performed By: #### U RTPCR #### [facility] [address] [address] [address] Dwight Waters Chloride [Moles/Vol] 106 mmol/L Normal 98-107 [facility] Comment on above: Performed By: #### U RTPCR #### [facility] [address] [address] [address] Dwight Waters CO2 [Moles/Vol] 24.2 mmol/L Normal 21.0-32.0 [facility] Comment on above: Performed By: #### U RTPCR #### [facility] [address] [address] [address] Dwight Waters Creatinine [Mass/Vol] 1.58 mg/dL Critically high 0.70-1.30 [facility] Comment on above: Performed By: #### U RTPCR #### [facility] [address] [address] [address] Dwight Waters EGFR-AF BENINESE 56 mL/min/1.73m2 Critically low >=60 [facility] Comment on above: Performed By: #### U RTPCR #### [facility] [address] [address] [address] Dwight Waters EGFR-NON AF BENINESE 46 mL/min/1.73m2 Critically low >=60 [facility] Comment on above: Performed By: #### U RTPCR #### [facility] [address] [address] [address] Dwight Waters Globulin (S) [Mass/Vol] 3.5 g/dL Normal [facility] Comment on above: Performed By: #### U RTPCR #### [facility] [address] [address] [address] Dwight Waters Glucose [Mass/Vol] 162 mg/dL Critically high 74-106 [facility] Comment on above: Performed By: #### U RTPCR #### [facility] [address] [address] [address] Dwight Waters Potassium [Moles/Vol] 3.8 mmol/L Normal 3.5-5.1 [facility] Comment on above: Performed By: #### U RTPCR #### [facility] [address] [address] [address] Dwight Waters Protein [Mass/Vol] 7.3 g/dL Normal 6.4-8.2 [facility] Comment on above: Performed By: #### U RTPCR #### [facility] [address] [address] [address] Dwight Waters Sodium [Moles/Vol] 141 mmol/L Normal 136-145 [facility] Comment on above: Performed By: #### U RTPCR #### [facility] [address] [address] [address] Dwight Waters Urea nitrogen [Mass/Vol] 22.0 mg/dL Critically high 7.0-18.0 [facility] Comment on above: Performed By: #### U RTPCR #### [facility] [address] [address] [address] Dwight Waters Urea nitrogen/Creatinine [Mass ratio] 13.9 mg/mg Normal [facility] Comment on above: Performed By: #### U RTPCR #### [facility] [address] [place] [address] Dr. Dwight Waters Portable XR Chest Viewson [...] chest. IMPRESSION IMPRESSION: No acute cardiopulmonary disease [facility] Radiology Study observation (narrative) [facility] Portable XR Chest ViewsOrder ed By: Vladislav Omer on 05-15-2022 [facility] URINE DIPSTICK; REFLEX MICRO SCOPY; REFLEX CULTURE PERFORMABLEon 05-15-2022 Appearance (U) Clear Clear [facility] Color (U) Yellow Yellow [facility] Glucose Test strip (U) [Mass/Vol] 100 mg/dL Abnormal Negative [facility] Interpretation and review of laboratory results Abnormal [facility] Ketones (U) [Mass/Vol] Negative Negative [facility] Leukocyte esterase Test strip Ql (U) Large Abnormal Negative [facility] Nitrite Ql (U) Negative Negative [facility] pH (U) 6.0 [pH[facility].0 [facility] Protein (U) [Mass/Vol] 100 mg/dL Abnormal Negative [facility] RBC (U) [#/Vol] Large Abnormal Negative [facility] Specific gravity (U) [Rel density] 1.010 [facility] Urobilinogen (U) [Mass/Vol] 0.2 E.U./dL 0.2 E.U/dL, 1.0 E.U/dL [facility] URINE MICROSCOPIC WITH REFLE X TO CULTUREOrdered By: Rey Bro on 06-16-2022 Bacteria LM Ql (Urine sed) ABSENT ABSENT [facility] Epithelial cells.squamous LM Ql (Urine sed) ABSENT 1/hpf = 1+, 2-5/hpf = 2+, 0/hpf = 0+, ABSENT [facility] Interpretation and review of laboratory results Abnormal [facility] RBC LM.HPF (Urine sed) [#/Area] /[HPF] Abnormal 0 - 2 /HPF [facility] WBC LM.HPF (Urine sed) [#/Area] 10-20 Abnormal 0 - 5 /HPF [facility] CT ABD/PELVIS WO CONon 05-12 CT ABD/PELVIS WO CON Begin Addendum #[address] Lund 3:25 PM EST 05/11/2022. Begin Addendum #2 IMPRESSION below should also contain the followin. 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 The [place] kidneys are progressively atrophic bilaterally compared to [...] of 06/14/2020 are no longer present. The [place] distal right ureter is decompressed beyond this [...] with surgical history for renal graft and [place] right urinary drainage, as a discrete ureteroneocystostomy is not identified, and the graft may be draining via a ureteroureterostomy. Urology consultation recommended. 3. The [place] kidneys are bilaterally atrophic, with right renal sinus calcifications consistent with nonobstructing right [place] renal calculi up to 6 mm. Normal [facility] CBC AUTO DIFFon 05-11-2022 BASO # 0.1 103/ul Normal 0.0-0.1 [facility] Comment on above: Performed By: #### U RTPCR #### [facility] [address] [address] [address] Dwight Waters Basophils/100 WBC (Bld) 0.8 % Normal 0.2-2.0 [facility] Comment on above: Performed By: #### U RTPCR #### [facility] [address] [place] [address] Dr. Dwight Waters EO # 0.2 103/ul Normal 0.0-0.7 [facility] Comment on above: Performed By: #### U RTPCR #### [facility] [address] [place] [address] Dr. Dwight Waters Eosinophils/100 WBC (Bld) 2.5 % Normal 0.9-7.0 [facility] Comment on above: Performed By: #### U RTPCR #### [facility] [address] [place] [address] Dr. Dwight Waters Erythrocyte distribution width (RBC) [Ratio] 12.5 % Normal 11.0-15.0 [facility] Comment on above: Performed By: #### U RTPCR #### [facility] [address] [place] [address] Dr. Dwight Waters Hematocrit (Bld) [Volume fraction] 48.3 % Normal 42.0-54.0 [facility] Comment on above: Performed By: #### U RTPCR #### [facility] [address] [place] [address] Dr. Dwight Waters Hemoglobin (Bld) [Mass/Vol] 15.3 g/dL Normal 14.0-18.0 [facility] Comment on above: Performed By: #### U RTPCR #### [facility] [address] [place] [address] Dr. Dwight Waters IG # 0.01 10e3/ul Normal 0.00-0.03 [facility] Comment on above: Performed By: #### U RTPCR #### [facility] [address] [place] [address] Dr. Dwight Waters IG % 0.2 % Normal 0.0-0.5 [facility] Comment on above: Performed By: #### U RTPCR #### [facility] [address] [address] [address] Dwight Waters LYMPH # 1.9 103/ul Normal 1.2-3.8 [facility] Comment on above: Performed By: #### U RTPCR #### [facility] [address] [address] [address] Dwight Waetrs Lymphocytes/100 WBC (Bld) 29.8 % Normal 20.5-60.0 [facility] Comment on above: Performed By: #### U RTPCR #### [facility] [address] [address] [address] Dwight Waters MANUAL DIFF REQ NO Normal [facility] Comment on above: Performed By: #### U RTPCR #### [facility] [address] [place] [address] Dr. Dwight Waters MCH (RBC) [Entitic mass] 28.2 pg Normal 25.9-34.0 [facility] Comment on above: Performed By: #### U RTPCR #### [facility] [address] [place] [address] Dr. Dwight Waters MCHC (RBC) [Mass/Vol] 31.7 g/dL Normal 29.9-35.2 [facility] Comment on above: Performed By: #### U RTPCR #### [facility] [address] [place] [address] Dr. Dwight Waters MCV (RBC) [Entitic vol] 89.1 fL Normal 80.0-94.0 [facility] Comment on above: Performed By: #### U RTPCR #### [facility] [address] [place] [address] Dr. Dwight Waters MONO # 0.6 103/ul Normal 0.3-0.8 [facility] Comment on above: Performed By: #### U RTPCR #### [facility] [address] [place] [address] Dr. Dwight Waters Monocytes/100 WBC (Bld) 9.0 % Normal 1.7-12.0 [facility] Comment on above: Performed By: #### U RTPCR #### [facility] [address] [place] [address] Dr. Dwight Waters NEUT # 3.6 103/ul Normal 1.4-6.5 [facility] Comment on above: Performed By: #### U RTPCR #### [facility] [address] [place] [address] Dr. Dwight Waters Neutrophils/100 WBC (Bld) 57.7 % Normal 43.0-75.0 [facility] Comment on above: Performed By: #### U RTPCR #### [facility] [address] [place] [address] Dr. Dwight Waters Platelet mean volume (Bld) [Entitic vol] 9.9 fL Normal 9.5-13.5 [facility] Comment on above: Performed By: #### U RTPCR #### [facility] [address] [place] [address] Dr. Dwight Waters PLT 249 103/ul Normal 150-450 [facility] Comment on above: Performed By: #### U RTPCR #### [facility] [address] [place] [address] Dr. Dwight Waters RBC 5.42 106/ul Normal 4.70-6.10 [facility] Comment on above: Performed By: #### U RTPCR #### [facility] [address] [place] [address] Dr. Dwight Waters WBC 6.3 103/ul Normal 4.0-11.0 [facility] Comment on above: Performed By: #### U RTPCR #### [facility] [address] [place] [address] Dr. Dwight Waters ER URINE PROFILEon 2 Bilirubin Ql (U) Unable to perform testing due to color interference. Abnormal NEGATIVE [facility] Comment on above: Performed By: #### U RTPCR #### [facility] [address] [place] [address] Dr. Dwight Waters Clarity (U) TURBID Abnormal CLEAR [facility] Comment on above: Performed By: #### U RTPCR #### [facility] [address] [place] [address] Dr. Dwight Waters Color (U) RED Abnormal YELLOW [facility] Comment on above: Performed By: #### U RTPCR #### [facility] [address] [place] [address] Dr. Dwight Waters ERUAHJenna A micrscopic examination will be performed if indicated. Normal [facility] Comment on above: Performed By: #### U RTPCR #### [facility] [address] [place] [address] Dr. Dwight Waters Glucose Ql (U) Unable to perform testing due to color interference. Abnormal NEGATIVE [facility] Comment on above: Performed By: #### U RTPCR #### [facility] [address] [place] [address] Dr. Dwight Waters Hemoglobin Ql (U) Unable to perform testing due to color interference. Abnormal NEGATIVE [facility] Comment on above: Performed By: #### U RTPCR #### [facility] [address] [place] [address] Dr. Dwight Waters Ketones Ql (U) Unable to perform testing due to color interference. Abnormal NEGATIVE [facility] Comment on above: Performed By: #### U RTPCR #### [facility] [address] [place] [address] Dr. Dwight Waters LEUKOCYTES Unable to perform testing due to color interference. Abnormal NEGATIVE [facility] Comment on above: Performed By: #### U RTPCR #### [facility] [address] [place] [address] Dr. Dwight Waters Nitrite Ql (U) Unable to perform testing due to color interference. Abnormal NEGATIVE [facility] Comment on above: Performed By: #### U RTPCR #### [facility] [address] [place] [address] Dr. Dwight Waters pH (U) 6.5 [pH] Normal 5-9 [facility] Comment on above: Performed By: #### U RTPCR #### [facility] [address] [place] [address] Dr. Dwight Waters SPEC GRAVITY 1.020 Normal 1.005-<=1.025 [facility] Comment on above: Performed By: #### U RTPCR #### [facility] [address] [place] [address] Dr. Dwight Waters UA PROTEIN Unable to perform testing due to color interference. Normal NEGATIVE/ TRACE [facility] Comment on above: Performed By: #### U RTPCR #### [facility] [address] [place] [address] Dr. Dwight Waters UR MICRO IND INDICATED Normal [facility] Comment on above: Performed By: #### U RTPCR #### [facility] [address] [place] [address] Dr. Dwight Waters UROBILINOGEN Unable to perform testing due to color interference. Normal 0.2 - 1.0 [facility] Comment on above: Performed By: #### U RTPCR #### [facility] [address] [place] [address] Dr. Dwight Waters PROF 14(COMP METB)on 022 Albumin [Mass/Vol] 3.8 g/dL Normal 3.4-5.0 [facility] Comment on above: Performed By: #### C MP #### [facility] [address] [place] [address] Dr. Dwight Waters Albumin/Globulin [Mass ratio] 1.1 {ratio} Normal [facility] Comment on above: Performed By: #### C MP #### [facility] [address] [place] [address] Dr. Dwight Waters ALP [Catalytic activity/Vol] 106 U/L Normal 46-116 [facility] Comment on above: Performed By: #### C MP #### [facility] [address] [place] [address] Dr. Dwight Waters ALT [Catalytic activity/Vol] 30 U/L Normal 16-63 [facility] Comment on above: Performed By: #### C MP #### [facility] [address] [place] [address] Dr. Dwight Waters Anion gap [Moles/Vol] 11.7 mmol/L Normal [facility] Comment on above: Performed By: #### C MP #### [facility] [address] [address] [address] Dwight Waters AST [Catalytic activity/Vol] 16 U/L Normal 15-37 [facility] Comment on above: Performed By: #### C MP #### [facility] [address] [place] [address] Dr. Dwight Waters Bilirubin [Mass/Vol] 0.6 mg/dL Normal 0.2-1.0 [facility] Comment on above: Performed By: #### C MP #### [facility] [address] [place] [address] Dr. Dwight Waters Calcium [Mass/Vol] 9.1 mg/dL Normal 8.5-10.1 [facility] Comment on above: Performed By: #### C MP #### [facility] [address] [place] [address] Dr. Dwight Waters CO2 [Moles/Vol] 27.4 mmol/L Normal 21.0-32.0 [facility] Comment on above: Performed By: #### C MP #### [facility] [address] [place] [address] Dr. Dwight Waters Creatinine [Mass/Vol] 1.18 mg/dL Normal 0.70-1.30 [facility] Comment on above: Performed By: #### C MP #### [facility] [address] [place] [address] Dr. Dwight Waters EGFR-AF BENINESE >60 Normal >=60 [facility] Comment on above: Performed By: #### C MP #### [facility] [address] [place] [address] Dr. Dwight Waters EGFR-NON AF BENINESE >60 Normal >=60 [facility] Comment on above: Performed By: #### C MP #### [facility] [address] [place] [address] Dr. Dwight Waters Globulin (S) [Mass/Vol] 3.6 g/dL Normal [facility] Comment on above: Performed By: #### C MP #### [facility] [address] [place] [address] Dr. Dwight Waters Glucose [Mass/Vol] 192 mg/dL Critically high 74-106 T [facility] Comment on above: Performed By: #### C MP #### [facility] [address] [place] [address] Dr. Dwight Waters Potassium [Moles/Vol] 4.1 mmol/L Normal 3.5-5.1 [facility] Comment on above: Performed By: #### C MP #### [facility] [address] [place] [address] Dr. Dwight Watres Protein [Mass/Vol] 7.4 g/dL Normal 6.4-8.2 [facility] Comment on above: Performed By: #### C MP #### [facility] [address] [place] [address] Dr. Dwight Waters Sodium [Moles/Vol] 142 mmol/L Normal 136-145 [facility] Comment on above: Performed By: #### C MP #### [facility] [address] [place] [address] Dr. Dwight Waters Urea nitrogen [Mass/Vol] 17.0 mg/dL Normal 7.0-18.0 [facility] Comment on above: Performed By: #### C MP #### [facility] [address] [place] [address] Dr. Dwight Waters Urea nitrogen/Creatinine [Mass ratio] 14.4 mg/mg Normal [facility] Comment on above: Performed By: #### C MP #### [facility] [address] [place] [address] Dr. Dwight Waters URINE MICROSCOPIC ONLYon BACTERIA NONE SEEN Normal NONE SEEN [facility] Comment on above: Performed By: #### U RTPCR #### [facility] [address] [place] [address] Dr. Dwight Waters Bacteria identified Cx Nom (U) NOT INDICATED Normal [facility] Comment on above: Performed By: #### U RTPCR #### [facility] [address] [place] [address] Dr. Dwight Waters CAST NONE SEEN Normal NONE SEEN [facility] Comment on above: Performed By: #### U RTPCR #### [facility] [address] [address] [address] Dwight Waters Crystals LM Nom (Urine sed) NONE SEEN Normal NONE SEEN [facility] Comment on above: Performed By: #### U RTPCR #### [facility] [address] [place] [address] Dr. Dwight Waters Epithelial cells LM Ql (Urine sed) RARE Normal NONE SEEN /RARE [facility] Comment on above: Performed By: #### U RTPCR #### [facility] [address] [place] [address] Dr. Dwight Waters MUCOUS NONE SEEN Normal NONE SEEN [facility] Comment on above: Performed By: #### U RTPCR #### [facility] [address] [place] [address] Dr. Dwight Waters RBC (U) [#/Vol] /uL Abnormal 0-2 [facility] Comment on above: Performed By: #### U RTPCR #### [facility] [address] [place] [address] Dr. Dwight Waters WBC NONE SEEN Normal NONE SEEN [facility] Comment on above: Performed By: #### U RTPCR #### [facility] [address] [place] [address] Dr. Dwight Waters K (Potassium)on 01-06-2020 Potassium [Moles/Vol] 4.4 mmol/L Normal 3.7-5.3 [facility] Comment on above: Performed By: #### K #### [facility] [address] [place] [address] Etl Developer: Kehinde Woodward MD Potassiumon 01-06-2020 Potassium [Moles/Vol] 4.4 mmol/L 3.7 - 5.3 mmol/L [facility] Work Phone: Hemoglobin and Hematocrit, B lojania 10-24-2019 Hematocrit (Bld) [Volume fraction] 23.6 % Low 40.7 - 50.3 % [facility], [place] Hemoglobin (Bld) [Mass/Vol] 7.3 g/dL Low 13 - 17 g/dL [place] Interpretation and review of laboratory results Abnormal [place], [place] Hgb/Hcton 10-24-2019 Hematocrit (Bld) [Volume fraction] 23.6 % Low 40.7-50.3 [facility] Comment on above: Performed By: #### H H #### [facility] [address] [place] [address] Etl Developer: Kehinde Woodward MD Hemoglobin (Bld) [Mass/Vol] 7.3 g/dL Low 13.0-17.0 [facility] Comment on above: Performed By: #### H H #### [facility] [address] [place] [address] Etl Developer: Kehinde Woodward MD Hemoglobinon 08-27-2019 Hemoglobin (Bld) [Mass/Vol] 7.5 g/dL Low 13.0-17.0 [facility] Comment on above: Performed By: #### H GB #### [facility] [address] [place] [address] Etl Developer: Kehinde Woodward MD Hemoglobin (Bld) [Mass/Vol] 7.5 g/dL Low 13 - 17 g/dL [place], [place] Interpretation and review of laboratory results Abnormal [place], [place] Hemoglobinon 08-08-2019 Hemoglobin (Bld) [Mass/Vol] 8.3 g/dL Low 13.0-17.0 [facility] Comment on above: Performed By: #### H GB #### [facility] [address] [place] [address] Etl Developer: Kehinde Woodward MD Hemoglobin (Bld) [Mass/Vol] 8.3 g/dL Low 13 - 17 g/dL [place], [place] Interpretation and review of laboratory results Abnormal [place], [place] Hemoglobinon 08-04-2019 Hemoglobin (Bld) [Mass/Vol] 8.0 g/dL Low 13.0-17.0 [facility] Comment on above: Performed By: #### H GB #### [facility] [address] [place] [address] Etl Developer: Kehinde Woodward MD Hemoglobin A1Con 08-03-2019 HbA1c (Bld) [Mass fraction] % Low 4.8-5.9 [facility] Comment on above: Result Comment: The ADA and AACC recommend providing the estimated average glucose result to permit better patient understanding of their HBA1c result. Performed By: #### G LYHGB #### [facility] [address] [place] [address] Etl Developer: Kehinde Woodward MD Glucose [Mass/Vol] mg/dL mg/dL [place], [place] Comment on above: The ADA and AACC rec ommend providing the estimated average glucose result to permit better patient understanding of their HBA1c result. HbA1c (Bld) [Mass fraction] % Low 4.8 - 5.9 % [place], [place] Interpretation and review of laboratory results Abnormal [place] Hemoglobinon 08-01-2019 Hemoglobin (Bld) [Mass/Vol] 8.1 g/dL Low 13.0-17.0 [facility] Comment on above: Performed By: #### H GB #### [facility] [address] [place] [address] Etl Developer: Kehinde Woodward MD Hemoglobin (Bld) [Mass/Vol] 8.1 g/dL Low 13 - 17 g/dL [place], [place] Interpretation and review of laboratory results Abnormal [place], [place] Hgb/Hcton 06-10-2019 Hematocrit (Bld) [Volume fraction] 24.3 % Low 40.7-50.3 [facility] Comment on above: Performed By: #### H H #### [facility] [address] [place] [address] Etl Developer: Kehinde Woodward MD Hemoglobin (Bld) [Mass/Vol] 7.4 g/dL Low 13.0-17.0 [facility] Comment on above: Performed By: #### H H #### [facility] [address] [place] [address] Etl Developer: Kehinde Woodward MD Hemoglobinon 06-01-2019 Hemoglobin (Bld) [Mass/Vol] 7.2 g/dL Low 13.0-17.0 [facility] Comment on above: Performed By: #### H GB #### [facility] [address] [place] [id number] Etl Developer: Kehinde Woodward MD K (Potassium)on 01-14-2019 Potassium [Moles/Vol] 3.6 mmol/L Low 3.7-5.3 [facility] Comment on above: Performed By: #### K #### [facility] [address] [place], [place] [id number] Etl Developer: Kehinde Woodward MD Otheron 10-19-2018 IMPRESSION: 1. [...] characteristics determined by Toxicology Laboratory at [facility]. It has not been cleared or [...] Amitriptyline(50), Amphetamine(250), Atenolol(500), Barbiturates(1000), Benzoylecgonine(50), Buprenorphine(50), Bupropion(25), Caffeine(63082), Chlordiazepoxide(50), Chlorpheniramine(100), Chlorpromazine(50), Citalopram(100), Clonazepam(200), Cocaine(25), Codeine(200), [...] LAB, [facility] TOXICOLOGY SCREEN URINE - UD [facility] 10-12-2018 Drugs identified Screen Nom (U) For Medical Purposes Only, Non-forensic, screen results are presumptive. No confirmatory testing will follow. Invalid Interpretation Code LAB, [facility] Comment on above: This Liquid Chromato graphy Mass Spectrometry (LC/MS/MS) test was developed and its performance characteristics determined by Toxicology Laboratory at [facility]. It has not been cleared or [...] Amitriptyline(50), Amphetamine(250), Atenolol(500), Barbiturates(200), Benzoylecgonine(50), Buprenorphine(500), Bupropion(25), Caffeine(77907), Cannabinoids(THC)(50), Chlordiazepoxide(50), Chlorpheniramine(100), Chlorpromazine(50), Citalopram(100), Clonazepam(200), Cocaine(25), [...] 97.81 [degF] Steve Farrari MBBS Work Phone: [facility] 09-11-2023 10:31-0400 Diastolic blood pressure 66 mm[Hg] Steve Yeison MBBS Work Phone: [facility] 09-11-2023 10:31-0400 Heart rate 70 /min Steve Yeison MBBS Work Phone: [facility] 09-11-2023 10:31-0400 Respiratory rate 20 /min Steve Yeison MBBS Work Phone: [facility] 09-11-2023 10:31-0400 SaO2% (BldA) [Mass fraction] 91 % Steve Yeison MBBS Work Phone: [facility] 09-11-2023 10:31-0400 Systolic blood pressure 129 mm[Hg] Steve Yeison MBBS Work Phone: [facility] 09-10-2023 15:50-0400 Body mass index (BMI) [Ratio] 31.99 kg/m2 Steve Yeison MBBS Work Phone: [facility] 09-10-2023 15:50-0400 Body weight 92.67 kg Steve Yeison MBBS Work Phone: [facility] 09-02-2023 07:32-0400 Body height 170.2 cm Steve Yeison MBBS Work Phone: [facility] 08-28-2023 13:33-0400 Body height 170.2 cm Steve Yeison MBBS Work Phone: [facility] 08-28-2023 13:33-0400 Body mass index (BMI) [Ratio] 32.12 kg/m2 Steve Yeison MBBS Work Phone: [facility] 08-28-2023 13:33-0400 Body temperature 97.3 [degF] Steve Yeison MBBS Work Phone: [facility] 08-28-2023 13:33-0400 Body weight 93.03 kg Steve Yeison MBBS Work Phone: [facility] 08-28-2023 13:33-0400 Diastolic blood pressure 41 mm[Hg] Steve Yeison MBBS Work Phone: [facility] 08-28-2023 13:33-0400 Heart rate 116 /min Steve Yeison MBBS Work Phone: [facility] 08-28-2023 13:33-0400 Systolic blood pressure 106 mm[Hg] Steve Yeison MBBS Work Phone: [facility] 06-12-2023 14:50-0400 Body mass index (BMI) [Ratio] 33.8 kg/m2 Rebeca Olsen IT INTEGRATION ARCHITECT-CASINO GAMING WORKER Work Phone: [facility] 06-12-2023 14:50-0400 Body temperature 97.3 [degF] Rebeca Olsen IT INTEGRATION ARCHITECT-CASINO GAMING WORKER Work Phone: [facility] 06-12-2023 14:50-0400 Body weight 97.89 kg Rebeca Olsen IT INTEGRATION ARCHITECT-CASINO GAMING WORKER Work Phone: [facility] 06-12-2023 14:50-0400 Diastolic blood pressure 77 mm[Hg] Rebeca Olsen IT INTEGRATION ARCHITECT-CASINO GAMING WORKER Work Phone: [facility] 06-12-2023 14:50-0400 Heart rate 76 /min Rebeca Olsen IT INTEGRATION ARCHITECT-CASINO GAMING WORKER Work Phone: [facility] 06-12-2023 14:50-0400 Systolic blood pressure 146 mm[Hg] Rebeca Olsen IT INTEGRATION ARCHITECT-CASINO GAMING WORKER Work Phone: [facility] 01-16-2023 08:57-0500 Body height 170.2 cm [facility] Work Phone: [facility] 01-16-2023 08:57-0500 Body mass index (BMI) [Ratio] 33.66 kg/m2 [facility] Work Phone: [facility] 01-16-2023 08:57-0500 Body temperature 97.3 [degF] [facility] Work Phone: [facility] 01-16-2023 08:57-0500 Body weight 97.48 kg [facility] Work Phone: [facility] 01-16-2023 08:57-0500 Diastolic blood pressure 75 mm[Hg] [facility] Work Phone: [facility] 01-16-2023 08:57-0500 Heart rate 76 /min [facility] Work Phone: [facility] 01-16-2023 08:57-0500 Systolic blood pressure 142 mm[Hg] [facility] Work Phone: [facility] 09-10-2022 09:38-0400 Body height 170.2 cm Ryan Yepez MD Work Phone: [facility] 09-10-2022 09:38-0400 Body mass index (BMI) [Ratio] 33.67 kg/m2 Ryan Yepez MD Work Phone: [facility] 09-10-2022 09:38-0400 Body weight 97.52 kg Ryan Yepez MD Work Phone: [facility] 09-10-2022 09:38-0400 Diastolic blood pressure 83 mm[Hg] Ryan Yepez MD Work Phone: [facility] 09-10-2022 09:38-0400 Heart rate 64 /min Ryan Yepez MD Work Phone: [facility] 09-10-2022 09:38-0400 SaO2% (BldA) [Mass fraction] 96 % Ryan Yepez MD Work Phone: [facility] 09-10-2022 09:38-0400 Systolic blood pressure 129 mm[Hg] Ryan Yepez MD Work Phone: [facility] 07-07-2022 13:48-0400 Diastolic blood pressure 76 mm[Hg] Ryan Yepez MD Work Phone: [facility] 07-07-2022 13:48-0400 Heart rate 82 /min Ryan Yepez MD Work Phone: [facility] 07-07-2022 13:48-0400 SaO2% (BldA) [Mass fraction] 96 % Ryan Yepez MD Work Phone: [facility] 07-07-2022 13:48-0400 Systolic blood pressure 141 mm[Hg] Ryan Yepez MD Work Phone: [facility] 06-27-2022 13:32-0400 Body height 170.2 cm Ryan Yepez MD Work Phone: [facility] 06-27-2022 13:32-0400 Body mass index (BMI) [Ratio] 34.24 kg/m2 Ryan Yepez MD Work Phone: [facility] 06-27-2022 13:32-0400 Body temperature 98.6 [degF] Ryan Yepez MD Work Phone: [facility] 06-27-2022 13:32-0400 Body weight 99.16 kg Ryan Yepez MD Work Phone: [facility] 06-27-2022 13:32-0400 Diastolic blood pressure 78 mm[Hg] Ryan Yepez MD Work Phone: [facility] 06-27-2022 13:32-0400 Heart rate 77 /min Ryan Yepez MD Work Phone: [facility] 06-27-2022 13:32-0400 SaO2% (BldA) [Mass fraction] 95 % Ryan Yepez MD Work Phone: [facility] 06-27-2022 13:32-0400 Systolic blood pressure 121 mm[Hg] Ryan Yepez MD Work Phone: [facility] 06-27-2022 10:52-0400 Body height 170.2 cm Rena Brewster RN [facility] 06-27-2022 10:52-0400 Body mass index (BMI) [Ratio] 34.46 kg/m2 Rena Brewster RN [facility] 06-27-2022 10:52-0400 Body temperature 98.2 [degF] Rena Brewster RN [facility] 07-29-2022 10:52-0400 Body weight 99.79 kg Rena Brewster RN [facility] 06-27-2022 10:52-0400 Diastolic blood pressure 73 mm[Hg] Rena Brewster RN [facility] 06-27-2022 10:52-0400 Heart rate 78 /min Rena Brewster RN [facility] 06-27-2022 10:52-0400 Respiratory rate 20 /min Rena Brewster RN [facility] 06-27-2022 10:52-0400 SaO2% (BldA) [Mass fraction] 97 % Rena Brewster RN [facility] 06-27-2022 10:52-0400 Systolic blood pressure 135 mm[Hg] Rena Brewster RN [facility] 06-12-2022 14:23-0400 Body mass index (BMI) [Ratio] 34.59 kg/m2 Steve Yeison MBBS Work Phone: [facility] 06-12-2022 14:23-0400 Body temperature 97 [degF] Steve Yeison MBBS Work Phone: [facility] 06-12-2022 14:23-0400 Body weight 100.2 kg Steve Yeison MBBS Work Phone: [facility] 06-12-2022 14:23-0400 Diastolic blood pressure 66 mm[Hg] Steve Yeison MBBS Work Phone: [facility] 06-12-2022 14:23-0400 Heart rate 63 /min Steve Yeison MBBS Work Phone: [facility] 06-12-2022 14:23-0400 Systolic blood pressure 133 mm[Hg] Steve Yeison MBBS Work Phone: [facility] 05-20-2022 15:21-0400 Body temperature 97.9 [degF] Gian Villatoro MD Work Phone: [facility] 05-20-2022 15:21-0400 Diastolic blood pressure 64 mm[Hg] Gian Villatoro MD Work Phone: 0(236)701-577442 [place] [address] 05-20-2022 15:21-0400 Heart rate 55 /min Gian Villatoro MD Work Phone: 3(507)283-881942 [place] [address] 05-20-2022 15:21-0400 Respiratory rate 15 /min Gian Villatoro MD Work Phone: 6(779)330-347942 [place] [address] 05-20-2022 15:21-0400 SaO2% (BldA) [Mass fraction] 95 % Gian Villatoro MD Work Phone: 4(438)359-007342 [place] [address] 05-20-2022 15:21-0400 Systolic blood pressure 145 mm[Hg] Gian Villatoro MD Work Phone: 5(562)878-391242 [place] [address] 05-19-2022 12:15-0400 Body mass index (BMI) [Ratio] 35.87 kg/m2 Gian Villatoro MD Work Phone: 6(627)237-681142 [place] [address] 05-19-2022 12:15-0400 Body weight 103.92 kg Gian Villatoro MD Work Phone: 9(254)565-585842 [place] [address] Comment on above: standing scale 05-16-2022 16:19-0400 Body height 170.2 cm Gian Villatoro MD Work Phone: 3(759)215-350342 [place] [address] 10-19-2018 08:44-0500 BMI (Body Mass Index) 26.58 kg/m2 [facility] Work Phone: 10-19-2018 08:44-0500 BP Diastolic 76 mm[Hg] [facility] Work Phone: 10-19-2018 08:44-0500 BP Systolic 144 mm[Hg] [facility] Work Phone: 10-19-2018 08:44-0500 Height 172.7 cm [facility] Work Phone: 10-19-2018 08:44-0500 Pulse (Heart Rate) 92 /min [facility] Work Phone: 10-19-2018 08:44-0500 Pulse Oximetry 99 % [facility] Work Phone: 10-19-2018 08:44-0500 Respiratory Rate 16 /min [facility] Work Phone: 10-19-2018 08:44-0500 Weight 79.29 kg [facility] Work Phone: 10-12-2018 09:50-0500 BMI (Body Mass Index) 27.24 kg/m2 [facility] Work Phone: 10-12-2018 09:50-0500 Body Temperature 98.6 [degF] [facility] Work Phone: 10-12-2018 09:50-0500 BP Diastolic 80 mm[Hg] [facility] Work Phone: 10-12-2018 09:50-0500 BP Systolic 157 mm[Hg] [facility] Work Phone: 10-12-2018 09:50-0500 Height 169.5 cm [facility] Work Phone: 10-12-2018 09:50-0500 Pulse (Heart Rate) 94 /min [facility] Work Phone: 10-12-2018 09:50-0500 Weight 78.29 kg Alfredito Restrepo [facility] Work Phone: Encounters Encounter Date Encounter Type Care Provider Facility Start: 11-03-2023 End: 11-03-2023 ambulatory ZULY BRUNO Not Available Start: 10-06-2023 ambulatory Angel Carpio [facility],PharmD [facility] [place] Start: 10-06-2023 Patient encounter procedure Angel Carpio [facility],PharmD [facility] [place] Start: 09-29-2023 [facility] Start: 09-24-2023 [facility] Start: 09-23-2023 [facility]ulatory [facility] Start: 09-15-2023 ambulatory [facility] Start: 08-28-2023 End: 09-11-2023 Evaluation and management of inpatient STEVE S YEISON Facility:[facility] Start: 08-28-2023 End: 09-11-2023 Evaluation and management of inpatient Steve S Yeison MBBS Work Phone: [id number] Start: 08-28-2023 ambulatory STEVE S YEISON Facility:[facility] Start: 08-28-2023 End: 08-28-2023 Office outpatient visit 25 minutes Steve S Yeison MBBS Work Phone: [facility] Comment on above: Immunosuppressed sta tus (Primary Dx); Kidney replaced by transplant; Aftercare following organ transplant; High risk medication use; Other general symptoms and signs; Abnormal blood chemistry; Hypertension secondary to other renal disorders Start: 08-19-2023 ambulatory Meka [facility]ueda [facility] [place] Start: 08-19-2023 Patient encounter procedure Meka Munoz [facility] [place] Start: 06-12-2023 ambulatory REBECA Fisher ty:[facility] Start: 06-12-2023 End: 06-12-2023 Office outpatient visit 25 minutes Steve S Yeison MBBS Work Phone: [facility] Comment on above: 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) Start: 06-10-2023 ambulatory Maren Bar RPh,PharmD Pharmacy Outpatient [facility] [place] Start: 06-10-2023 Patient encounter procedure Maren Bar RPh,PharmD Pharmacy Outpatient [facility] [place] Start: 05-26-2023 [facility] Start: 04-28-2023 End: 04-29-[address] DOCTOR EVANS Facility:[facility] Start: 04-13-2023 End: 04-13-2023 ambulatory [facility] Start: 03-12-2023 ambulatory Angel Fete RPh,PharmD Pharmacy Outpatient [facility] [place] Start: 03-12-2023 Patient encounter procedure Angel Fete RPh,PharmD Pharmacy Outpatient [facility] [place] Start: 03-10-2023 ambulatory Angel Fete RPh,PharmD Pharmacy Outpatient [facility] [place] Start: 03-10-2023 Patient encounter procedure Angel Fete RPh,PharmD Pharmacy Outpatient [facility] [place] Start: 03-02-2023 End: 03-03-[address] DOCTOR EVANS Facility:[facility] Start: 01-16-2023 [facility] Start: 01-16-2023 End: 01-16-2023 Office outpatient visit 25 minutes Daisha Max DO Work Phone: [facility] Comment on above: Abnormal blood chemi stry [...] MD Work Phone: [facility] Comment on above: BPH with obstruction /lower urinary tract symptoms (Primary Dx); Encounter for screening for malignant neoplasm of prostate Start: 08-28-2022 End: 08-29-2022 ambulatory ROB ZULY BRUNO Facility:[facility] Start: 08-14-2022 End: 08-15-[address] DOCTOR EVANS Facility:[facility] Start: 07-07-2022 End: 07-07-2022 Patient encounter procedure Ryan Yepez MD Work Phone: [facility] Comment on above: Other hydronephrosis (Primary Dx); [...] MD Work Phone: [facility] Comment on above: Other hydronephrosis (Primary Dx) [...] Phone: [facility] Comment on above: Immunosuppressed sta tus [...] of inpatient Gian Villatoro MD Work Phone: [id number] Comment on above: [facility] Start: 05-15-2022 End: 05-15-[address] GEORGE ALEXANDER Facility:[facility] Start: 05-11-2022 End: 05-11-[address] GEORGE ALEXANDER Facility:[facility] Start: 03-14-2022 ambulatory Comfort Rivera [facility] Work Phone: [facility]patient [facility] [place] Start: 03-14-2022 Patient encounter procedure Comfort Rivera [facility] Work Phone: [facility]patient [facility] [place] Start: 06-14-2021 End: 06-14-2021 ambulatory Comfort Chinedu Rivera [facility] Work Phone: [facility] Start: 06-14-2021 Patient encounter procedure Comfort Chinedu Rivera [facility] Work Phone: [facility] Start: 01-20-2020 End: 01-27-2020 Patient encounter procedure PEPE CASE Facility:[facility] Start: 01-06-2020 End: 01-07-2020 Patient encounter procedure [facility] Start: 01-06-2020 End: 01-06-2020 Subsequent hospital visit by physician [facility] Start: 10-24-2019 End: 10-25-2019 [facility] Start: 10-24-2019 End: 10-24-2019 Subsequent hospital visit by physician [facility] Start: 08-27-2019 End: 08-28-2019 Patient encounter procedure [facility] Start: 08-27-2019 End: 08-27-2019 Subsequent hospital visit by physician [facility] Start: 08-08-2019 End: 08-09-2019 Patient encounter procedure ROB PATINO [facility] Start: 08-08-2019 End: 08-08-2019 Subsequent hospital visit by physician [facility] Start: 08-03-2019 End: 08-04-2019 [facility] Start: 08-03-2019 End: 08-03-2019 Subsequent hospital visit by physician [facility] Start: 08-01-2019 End: 08-02-2019 [facility] Start: 08-01-2019 End: 08-01-2019 Subsequent hospital visit by physician [facility] Start: 06-10-2019 End: 06-11-2019 Patient encounter procedure RENA GUDINO [facility] Start: 06-01-2019 End: 06-02-2019 [facility] Start: 01-14-2019 End: 01-15-2019 Patient encounter procedure RENA GUDINO [facility] Start: 11-17-2018 End: 11-17-2018 Patient encounter procedure Melania Dangelo [facility] Comment on above: Social Work Follow-u p Start: 10-19-2018 End: 10-19-2018 Patient encounter [facility] Comment on above: Cirrhosis of liver w ithout ascites, unspecified hepatic cirrhosis type (Primary Dx) Start: 10-19-2018 End: 10-19-2018 Office outpatient visit 25 minutes Christin Elizabeth Work Phone: Division of Gastroenterology and Hepat[facility] [place] Comment on above: Alcoholic cirrhosis of liver without ascites (Primary Dx); Pre-transplant evaluation for liver transplant; Hepatic encephalopathy Start: 10-13-2018 End: 10-13-2018 Patient encounter procedure [facility] Comment on above: Reschedule Outside Medical Allan rds Request Start: 10-12-2018 End: 10-12-2018 Patient encounter procedure Sophie Raeann [facility]plant Office Comment on [...] 10-05-2018 Patient encounter status Comfort Rivera [facility] Work Phone: [facility] Procedures Date Procedure Procedure Detail Performing Clinician [...] Work Phone: Start: 09-07-2023 Hepatic function panel vEan Kelly MD Work Phone: Start: 09-06-2023 Assay [...] blood Crow Diaz MD Work Phone: Start: 9 End: 09-02-2023 Cytp slctv cell enhancement interpj [...] Work Phone: Start: 08-29-2023 Assay of magnesium Milotn Kelly MD Work Phone: Start: 08-29-2023 Hepatic [...] AURIS SCREEN BY PCR Carol Ann Capps IT INTEGRATION ARCHITECT-MINE UTILITY OPERATOR Work Phone: Start: 08-28-2023 CBC AND ELECTRONIC [...] above: Performed By: #### C MP #### [facility] [address] [place] [address] Dr. Dwight Waters Start: 07-07-2022 Rmvl nfros [...] S/P liver trans plant Comfort [facility] Work Phone: Start: 04-08-2020 H/O: liver recipient Liver tra nsplant recipient Comfort Rivera [facility] Work Phone: Start: 01-06-2020 [...] -donor kidney transplant recipient Comfort Rivera [facility] Work Phone: Start: 06-10-2019 HEMOGLOBIN AND HEMAT OCRIT, BLOOD ROB KASMANI Start: 06-01-2019 Blood count hemoglobin ROB KASMANI Start: 03-22-2019 Lipid 1996 panel - S fabricio or Plasma Comfort Rivera [facility] Work Phone: Start: 01-14-2019 [...] eb virus viral capsid vca Yovani Mejias [employer] Work Phone: Start: 10-12-2018 End: 10-12-2018 Antibody herpes smplx type 1 Yovani Orr Work Phone: Start: 10-12-2018 End: 10-12-2018 Antibody rubeola Yovani Mejias [employer] Work Phone: Start: 10-12-2018 End: 10-12-2018 Antibody varicella-zoster Yovani [employer] Work Phone: Start: 10-12-2018 End: 10-12-2018 Assay of ethanol Yovani Orr Work Phone: Start: 10-12-2018 End: 10-12-2018 Assay of ferritin Yovani Orr Work Phone: Start: 10-12-2018 End: 10-12-2018 Assay of iron Yovani Mejias [employer] Work Phone: Start: 10-12-2018 End: 10-12-2018 Assay of parathormone Yovani Mejias [employer] Work Phone: Start: 10-12-2018 End: 10-12-2018 Assay of phosphatase alkaline Yovani Mejias [employer] Work Phone: Start: 10-12-2018 End: 10-12-2018 Bilirubin total Yovani Orr Work Phone: Start: 10-12-2018 End: 10-12-2018 Calcium total Yovani Mejias [employer] Work Phone: Start: 10-12-2018 End: 10-12-2018 CBC, EDIF, PLATELET Yovani Orr Work Phone: Start: 10-12-2018 End: 10-12-2018 Creatinine blood Yovani Orr Work Phone: Start: 10-12-2018 End: 10-12-2018 Drug screening cannabinoids natural Yovani Orr Work Phone: Start: 10-12-2018 End: 10-12-2018 Hepatitis a antibody haab Yovani Orr Work Phone: Start: 10-12-2018 End: 10-12-2018 Hepatitis b core antibody hbcab total Yovani Mejias [employer] Work Phone: Start: 10-12-2018 End: 10-12-2018 Hepatitis b surf antibody hbsab Yovani eMjias [employer] Work Phone: Start: 10-12-2018 End: 10-12-2018 Hepatitis c antibody Yovani Mejias [employer] Work Phone: Start: 10-12-2018 End: 10-12-2018 Iaad ia hepatitis b surface antigen Yovani Mejias [employer] Work Phone: Start: 10-12-2018 End: 10-12-2018 Iaad ia hiv-1 ag w/hiv-1 & hiv-2 antbdy single Yovani Orr Work Phone: Start: 10-12-2018 End: 10-12-2018 PSA screening Yovani Orr Work Phone: Start: 10-12-2018 End: 10-12-2018 Thromboplastin time partial plasma/whole blood Yovani Orr Work Phone: Start: 10-12-2018 End: 10-12-2018 Assay of ethanol Yovani Mejias [employer] Work Phone: Start: 10-12-2018 End: 10-12-2018 Drug/substance [...] 08-31-2024 Screening for malignant neoplasm of lung [facility] Start: 06-17-2024 End: 06-17-2024 ambulatory [facility] Start: 06-17-2024 End: 06-17-2024 Patient encounter procedure [facility] Start: 03-22-2024 Fasting lipid profile LIPID SCREENING [facility] Start: 03-22-2024 Lipid panel [facility] Start: 01-15-2024 End: 01-15-2024 ambulatory [facility] Start: 01-15-2024 End: 01-15-2024 Patient encounter procedure [facility] Start: 12-08-2023 End: 09-07-2024 CT Chest WO contrast [facility] Work Phone: Start: 09-23-2023 End: 09-23-2023 ambulatory [facility] Care [facility] Start: 09-23-2023 End: 09-23-2023 Telemedicine consultation with patient 09/23/2023 4:00 PM EDT Telemedicine Infectious Diseases [facility] [address] [place] [address] Hakeem Alamo MD [address] [place] [address] Infectious Diseases Care [facility] Start: 09-15-2023 End: 09-10-2024 ITRACONAZOLE LEVEL [facility] Start: 08-25-2023 End: 08-25-2024 ALLOSCREEN RECIPIENT (POST TX PRA) ALLOSCREEN RECIPIENT (POST TX PRA) Lab Routine Kidney replaced by transplant Aftercare following organ transplant Immunosuppressed status High risk medication use Other general symptoms and signs Abnormal blood chemistry Expected: 08/25/2023, Expires: 08/25/2024 [facility] Comment on above: Expected: 08/25/2023, Expires: Start: 07-31-2023 Influenza vaccination [facility] Start: 06-12-2023 End: 06-12-2023 Patient encounter procedure 06/12/2023 Office Visit Transplant Surgery Steve Latham MBBS [address] [place] [address] [facility] Start: 03-11-2023 End: 03-11-2023 Telemedicine consultation with patient 03/11/2023 Telemedicine Urology Ryan Yepez MD [address] [facility] [address] [place] [address] [facility] Start: 01-16-2023 End: 01-16-2023 Patient encounter procedure 01/16/2023 Office Visit Transplant Surgery [facility] Start: 10-31-2022 End: 10-31-2022 Patient encounter procedure 10/31/2022 Office Visit Transplant Surgery Steve Latham MBBS [address] 11[address] [place] [address] [facility] Start: 09-10-2022 End: 09-10-2023 PSA screening PSA, SCREENING Lab Routine BPH with obstruction/lower urinary tract symptoms Encounter for screening for malignant neoplasm of prostate Expected: 09/10/2022 (Approximate), Expires: 09/10/2023 [facility] Comment on above: Expected: 09/10/2022 (Approximate), Expi res: 09/10/2023 Start: 08-11-2022 End: 08-11-2022 Patient encounter procedure 08/11/2022 Office Visit UrologRyan Batista MD [address] [place] [address] [address] [place] [address] Urology Eye [facility] [place] Start: 07-31-2022 Influenza vaccination [facility] Start: 07-07-2022 End: 07-07-2022 Patient encounter procedure 07/07/2022 Office Visit Ryan Webster MD [address] [place] [address] [address] [place] [id number] Urolog Eye [facility] [place] Start: 07-07-2022 End: 07-07-2023 FLUORO IMAGING FOR UROLOGY [facility] Comment on above: Expected: 07/07/2022, Expires: 3 1 Occurrences starti ng 07/07/2022 until 07/07/2022 Start: 06-27-2022 End: 06-27-2022 Patient encounter procedure 06/27/2022 Office Visit Ryan Webster MD [address] [place] [address] [address] [place] [address] Urology Eye and Ear [place] Start: 06-27-2022 End: 06-27-2023 Basic metabolic 2000 panel - Serum or Plasma BASIC METABOLIC PANEL Lab Routine Other hydronephrosis Expected: 06/27/2022, Expires: 06/27/2023 [facility] Comment on above: Expected: 06/27/2022, Expires: 3 Start: 06-27-2022 End: 06-27-2022 Patient encounter procedure 06/27/2022 Appointment Computerized Tomography Scan Ryan Yepez MD [address] [facility] [address] [place] [address] Department of Radiology Start: 06-15-2022 End: 05-16-2023 CT Abdomen and Pelvis WO contrast CT ABDOMEN/PELVIS WITHOUT CONTRAST Imaging Routine FAYE (acute kidney injury) Expected: 06/15/2022 (Approximate), Expires: 05/16/2023 [facility] Work Phone: Comment on above: Expected: 06/15/2022 (Approximate), Expi res: 05/16/2023 Start: 06-12-2022 End: 06-12-2022 Patient encounter procedure 06/12/2022 Office Visit Transplant Surgery Steve Latham MBBS [address] 11[address] [place] [address] [facility] Start: 06-11-2022 End: 06-11-2023 BK VIRUS DNA QN, PCR, PLASMA BK VIRUS DNA QN, PCR, PLASMA Lab Routine Kidney replaced by transplant Liver replaced by transplant Abnormal blood chemistry Expected: 06/11/2022, Expires: 06/11/2023 [facility] Comment on above: Expected: 06/11/2022, Expires: 3 Start: 06-04-2022 End: 06-04-2022 Patient encounter procedure 06/04/2022 Office Visit Interventional Radiology [facility] Start: 10-18-2021 End: 10-18-2021 Patient encounter procedure 10/18/2021 Office Visit Transplant Surgery Steve Latham MBBS [address] 11[address] [place] [address] [facility] Transplant [facility] Start: 07-31-2021 Influenza vaccination INFLUENZA VACCINE (#1) [facility] Start: 07-26-2021 End: 07-26-2021 Patient encounter procedure 07/26/2021 Office Visit Transplant Surgery [facility] Start: 2021 Prostate specific antigen measurement [facility] Start: 2021 Screening for malignant neoplasm of lung LUNG CANCER SCREENING [facility] Start: 2021 Zoster vaccine hzv live for subcutaneous use ZOSTER (SHINGLES) VACCINE (1 of 2) [facility] Start: 09-20-2020 Colonoscopy COLORECTAL CANCER SCREENING DISCUSSION [facility] Start: 09-20-2020 Screening for malignant neoplasm of colon [facility] Start: 07-31-2019 Influenza vaccination Flu vaccine (#1) [place], [place] Start: 05-22-2019 Annual Wellness Visit (AWV) Annual Wellness Visit (AWV) [place] Start: 04-18-2019 End: 10-19-2019 Ultrasonography of abdomen US ABDOMEN RUQ/LIVER/GB Routine Cirrhosis of liver without ascites, unspecified hepatic cirrhosis type Expected: 04/18/2019 (Approximate), Expires: 10/19/2019 [facility] Work Phone: Comment on above: Expected: 04/18/2019 (Approximate), Expi res: 10/19/2019 Start: 01-25-2019 End: 01-25-2019 Ambulatory 01/25/2019 Office Visit Gastroenterology Christin Elizabeth, IT INTEGRATION ARCHITECT-CASINO GAMING WORKER [address] [place] [address] Division of Gastroenterology and Hepatology Gavin Start: 11-19-2018 End: 11-19-2018 Ambulatory 11/19/2018 Appointment Pulmonary Diagnostics [facility] Start: 11-19-2018 End: 11-19-2018 Ambulatory [facility] Start: 10-19-2018 End: 10-19-2018 Ambulatory Ultrasound Jakob Start: 10-12-2018 End: 10-12-2019 Hemoglobin A1c/Hemoglobin.total mass fraction (Bld) HEMOGLOBIN A1C Routine Alcoholic cirrhosis, unspecified whether ascites present Pre-transplant evaluation for liver transplant Expected: 10/12/2018, Expires: 10/12/[address] [facility] Work Phone: Comment on above: Expected: 10/12/2018, Expires: 9 Start: 10-12-2018 End: 10-12-2019 TYPE AND SCREEN - NOT FOR TRANSFUSION TYPE AND SCREEN - NOT FOR TRANSFUSION Routine Alcoholic cirrhosis, unspecified whether ascites present Pre-transplant evaluation for liver transplant Expected: 10/12/2018, Expires: 10/12/[address] [facility] Work Phone: Comment on above: Expected: 10/12/2018, Expires: 9 Start: 07-31-2018 Influenza vaccination INFLUENZA VACCINE (#1) [facility] Work Phone: Start: 2011 Fasting lipid profile LIPID SCREENING [facility] Work Phone: Start: 2011 Lipid screen Lipid screen [place], [place] Start: 1990 DTaP/Tdap/Td vaccine (1 - Tdap) DTaP/Tdap/Td vaccine (1 - Tdap) [place] Start: 1990 Hepatitis B Vaccine (1 of 3 - Risk Recombivax 3-dose series) Hepatitis B Vaccine (1 of 3 - Risk Recombivax 3-dose series) [place] Start: 1990 Third diphtheria, tetanus and acellular pertussis (DTaP) vaccination [facility] Start: 1990 Zoster vaccine hzv live for subcutaneous use ZOSTER (SHINGLES) VACCINE (1 of 2) [facility] Start: 1990 [facility] Start: 1989 Tetanus vaccination TETANUS [facility] Start: 1986 HIV screen HIV screen [place], [place] Start: 02-17-1984 HIV screening HIV SCREENING DISCUSSION [facility] Work Phone: Start: 1983 COVID-19 VACCINE (1) COVID-19 VACCINE (1) [facility] Start: 1982 DTaP/Tdap/Td vaccine (1 - Tdap) DTaP/Tdap/Td vaccine (1 - Tdap) [place] Start: 1977 Pneumococcal 0-64 years Vaccine (1 of 3 - PCV13) Pneumococcal 0-64 years Vaccine (1 of 3 - PCV13) [place] Start: 1977 PNEUMOCOCCAL VACCINE SERIES (1 - PCV) PNEUMOCOCCAL VACCINE SERIES (1 - PCV) [facility] Start: 1977 [facility] Start: 02-17-1976 COVID-19 VACCINE (#1) COVID-19 VACCINE (#1) [facility] Start: 02-17-1976 [facility] Start: 1971 COVID-19 VACCINE (#1) COVID-19 VACCINE (#1) [facility] Start: 1971 Hepatitis B vaccination HEP B VACCINE (1 of 3 - 3-dose series) [facility] Start: 1971 Tetanus vaccination [facility] BK VIRUS DNA QN, PCR , PLASMA BK VIRUS DNA QN, PCR, PLASMA Lab Routine Kidney replaced by transplant Liver replaced by transplant Abnormal blood chemistry 06/12/2022 3:38 PM EDT [facility] CALCULI, URINARY (KIDNEY STONE) CALCULI, URINARY (KIDNEY STONE) Fluids Routine 05/19/2022 8:16 AM EDT [facility] Work Phone: CANNABINOIDS, QUANT (URINE)THC CONFIRMATION CANNABINOIDS, QUANT (URINE)THC CONFIRMATION Routine Alcoholic cirrhosis, unspecified whether ascites present ESRD (end stage renal disease) on dialysis Pre-transplant evaluation for liver transplant 10/12/2018 12:57 PM EST [facility] Work Phone: End: 09-10-2024 CHEM 6 (LYTES, BUN CREA) [facility] EBV VCA IGG AB EBV VCA IGG AB R outine Alcoholic cirrhosis, unspecified whether ascites present ESRD (end stage renal disease) on dialysis Pre-transplant evaluation for liver transplant 10/12/2018 12:57 PM [facility] Work Phone: Fungus identified in Unspecified specimen by Culture [facility] HLA TYPING (SOLID ORGAN) HLA TYPING (SOLID ORGAN) Routine Alcoholic cirrhosis, unspecified whether ascites present ESRD (end stage renal disease) on dialysis Pre-transplant evaluation for liver transplant 10/12/2018 12:57 PM [facility] Work Phone: HSV 1 AND 2 IGG ANTIBODY HSV 1 AND 2 IGG ANTIBODY Routine Alcoholic cirrhosis, unspecified whether ascites present ESRD (end stage renal disease) on dialysis Pre-transplant evaluation for liver transplant 10/12/2018 12:57 PM [facility] Work Phone: 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 specific culture [facility] PLACEMENT NEPHROSTOM Y CATHETER PERCUTANEOUS W/ IMAGE GUIDANCE PLACEMENT NEPHROSTOMY CATHETER PERCUTANEOUS W/ IMAGE GUIDANCE Imaging Routine Hydronephrosis due to obstruction of ureteral orifice FAYE (acute kidney injury) 05/17/2022 11:08 AM EDT [facility] MI POST VOID RESIDUAL MI POST VO ID RESIDUAL MI - OFFICE PERFORMED Routine BPH with obstruction/lower urinary tract symptoms Ordered: 09/10/2022 [facility] Comment on above: Ordered: 09/10/2022 PTH INTACT PTH INTACT Routi ne Alcoholic cirrhosis, unspecified whether ascites present ESRD (end stage renal disease) on dialysis Pre-transplant evaluation for liver transplant 10/12/2018 12:57 PM [facility] Work Phone: RUBEOLA IGG AB (IMMU NE STATUS) RUBEOLA IGG AB (IMMUNE STATUS) Routine Alcoholic cirrhosis, unspecified whether ascites present ESRD (end stage renal disease) on dialysis Pre-transplant evaluation for liver transplant 10/12/2018 12:57 PM [facility] Work Phone: End: 09-10-2024 TACROLIMUS LEVEL, TROUGH (PRE DRUG LEVEL) [facility] VARICELLA IGG AB (IM M STATUS) VARICELLA IGG AB (IMM STATUS) Routine Alcoholic cirrhosis, unspecified whether ascites present ESRD (end stage renal disease) on dialysis Pre-transplant evaluation for liver transplant 10/12/2018 12:57 PM EST [facility] Work Phone: Payers Date Payer Category Payer Unknown [id number] 2019 Unknown [facility] [id number] 2019-Present [id number] 2018 Medicaid MEDICAID [facility] DEPT OF JOB xxxxxxxxxxxx 2018-Present [phone] [address] [place] [address] xxxxxxxxxxxx [id number] 2018 Medicaid MEDICAID MEDICAI D [id number] 2018-Present [address] [place] [address] [id number] [id number] 2018 Medicaid [id number] [id number] .[id number] 2018 Medicare MEDICARE MEDICAR E PART A AND B xxxxxxxxxxx 2018-Present [phone] [address] [address] [place] [address] xxxxxxxxxxx [id number] [id number] 2018 Medicare [id number] 2018 Medicare MEDICARE MEDICAR E A AND B [id number] 2018-Present [address] [place] [address] [id number] .[id number] 2018 Medicare [id number]. 1.13.172.2.7.3 .142740.315 1971 Unknown [id number] 2.16.840.1.914396.3.579.2.173 1971 Unknown [id number] 2.16.840.1.947810.3.579.2.173 1971 Unknown [id number] 2.16.840.1.210598.3.579.2.173 1971 Unknown [id number] 2.16.840.1.777041.3.579.2.173 1971 Unknown [id number] 2.16.840.1.881930.3.579.2.173 1971 Unknown [id number] 2.16.840.1.170672.3.579.2.173 1971 Unknown [id number] 2.16.840.1.800425.3.579.2.173 1971 Unknown [id number] 2.16.840.1.194329.3.579.2.173 1971 Unknown [id number] 2.16.840.1.537559.3.579.2.647 1971 Unknown [id number] 2.16.840.1.285614.3.579.2.593 1971 Unknown [id number] 2.16.840.1.737755.3.579.2.593 1971 Unknown [id number] 2.16.840.1.856978.3.579.2.593 1971 Unknown [id number] 2.16.840.1.640775.3.579.2.593 1971 Unknown [id number] 2.16.840.1.469215.3.579.2.593 1971 Unknown [id number] 2.16.840.1.912805.3.579.2.593 1971 Unknown [id number] 2.16.840.1.246018.3.579.2.593 1971 Unknown [id number] 2.16.840.1.402677.3.579.2.593 1971 Unknown [id number] 2.16.840.1.122020.3.579.2.593 1971 Unknown [id number] 2.16.840.1.911226.3.579.2.593 1971 Unknown [id number] 2.16.840.1.230288.3.579.2.593 1971 Unknown [id number] 2.16.840.1.742992.3.579.2.593 1971 Unknown [id number] 2.16.840.1.469690.3.579.2.593 1971 Unknown [id number] 2.16.840.1.126166.3.579.2.593 1971 Unknown [id number] 2.16.840.1.789687.3.579.2.593 1971 Unknown [id number] 2.16.840.1.097780.3.579.2.594 1971 Unknown [id number] 2.16.840.1.054800.3.579.2.594 1971 Unknown [id number] 2.16.840.1.215383.3.579.2.594 1971 Unknown [id number] 2.16.840.1.456343.3.579.2.594 1971 Unknown [id number] 2.16.840.1.851973.3.579.2.594 1971 Unknown [id number] 2.16.840.1.952550.3.579.2.594 1971 Unknown [id number] 2.16.840.1.078194.3.579.2.594 1971 Unknown [id number] 2.16.840.1.611972.3.579.2.594 1971 Unknown [id number] 2.16.840.1.709167.3.579.2.594 1971 Unknown [id number] 2.16.840.1.109085.3.579.2.125 9 1959 Medicaid [id number] 1958 Medicare [id number] Social History Date Type Detail Facility Start: 07-19-2018 End: 10-19-2018 Tobacco smoking status NHIS Former smoker [facility] Start: 07-19-1988 End: 05-14-2018 History of tobacco use Current smoker [facility] Work Phone: Start: 07-19-1988 End: 05-14-2018 History of tobacco use Cigarette Smoker [facility] Work Phone: Start: 10-19-2018 End: 09-26-2023 Cigarettes smoked current (pack per day) - Reported [facility] Work Phone: End: 07-19-1994 History of tobacco use Chews Tobacco 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) [place] Start: 06-22-2018 Alcohol Comment Hx of alcoholism [place], [place] Start: 11-03-2018 End: 09-26-2023 Alcohol intake No [place] Start: 07-19-2018 Tobacco use and exposure Former user [facility] Start: 09-06-2020 End: 09-26-2023 Alcohol intake Ex-drinker (finding) [facility] Start: 07-19-2018 Alcohol Comment stopped 05/14/2018 [facility] Start: 05-05-2022 End: 01-16-2023 Exposure to SARS-CoV-2 (event) Not sure [facility] Start: 07-07-2018 Gender identity Identifies as male gender (finding) [facility] Start: 01-16-2022 Sexual orientation Heterosexual (scooby kc) [facility] Medical Equipment Procedure Code Equipment Code Equipment Original Text Equipment Identifier Dates [id number] Start: 05-23-2020 [id number] Start: 04-12-2020 [id number], [id number] FDA Start: 05-17-2022 Comment on above: Description: Implant time-out completed by intra-procedural staff including this RN, technician support association, and performing physician. The following was completed. [...] ; Prograf 0.2 MG Contact Info: Specialty ([place]) [phone] [facility] [phone] [facility] [phone] [facility] [phone] Bedside Delivery ([facility]) [phone] [facility] RX OUTREACH ADVANCED: Call Information: Date and Time of Contact: 10/23/2023 2:00 PM Method of Contact: By Phone Contact Type: Prescriptions Contactor: [facility] Contactee: Patient Contact Outcome: Left message and Call back later Shipping/Pickup: Medication Name: Mycophenolate 360mg and Prograf 0.2mg Contact Info: Specialty ([place]) [phone] [facility] [phone] [facility] [phone] [facility] [phone] Bedside Delivery ([facility]) [phone] documented in this encounter [facility] 09-11-2023 Miscellaneous Notes Pt discharged home with [...] the oxygen during the night. 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 Patient was mildly short of breath on [...] & HR 114. Messaged Mainor Loomis, via [employer] secure chat, Temp 100.8. His tylenol order [...] short period of time. 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 Episode of [...] Critical Care Medicine Message Mainor Loomis, via [employer] secure chat, Good evening, just an FYI, [...] short period of time. 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 This morning, [...] [address] Loera here also (pm technician) Dr. Diaz aware of pt's increased oxygen [...] PGY-2 Mr. Styles was admitted to [address] [place] [address]. On admission to [facility], from home a [...] station when available. documented in this encounter [facility] History of Present illness Narrative Provided follow-up emotional and spiritual support. Patient shared about rosemary of discharge and looking forward to seeing family Semiconductor Wafers Tester provided: - Supportive presence - Active listening - Validation of feelings/emotions Patient encouraged to request a cafe or restaurant manager as needed. Chaplains are available in-house 24 hours a day and 7 days a week. For urgent matters in [facility], please page [phone]. If the request is not urgent, please enter a consult. Consults are responded to within 24 hours. Senior Staff Semiconductor Wafers Tester Angie Singh Mdiv, [facility] Kirk [phone] [email or web address] 22/06 On-call Kirk: [phone] 22/06 Pager ,[facility], and Brock Hernandez Pager [phone] 09/11/23 [id number] Clinical Encounter Type Visited With Patient Visit Type Follow-up Pastoral Time Spent 15 min Referral Other (See Comment) (rounding) Spiritual Assessment Spiritual Observation Spirituality helpful Emotional Observation Coping well Hope Observation Specific hope focus Support Observation By Family Interventions Provided Active listening;Supportive presence Facilitated Verbalization of feelings Explored Expectations Engineering Assistant Education Engineering Assistant Service Available Yes Educated Patient Plan of Care Continue Visiting PRN Images from the original note were not included. [facility] ([facility] Note: Non-Verbal Med Rec [facility] received the following discharge prescription(s): Total cost is $0. I have reviewed the Discharge Rx Reconciliation Report. The discharge prescription(s) will be delivered to the patient on 09/11/2023. Dimitrios Gurrola RPh,PharmD Specialty ([place]) [phone] [facility] [phone] [facility] Bedside Delivery [phone] [facility] [phone] [facility] Bedside Delivery [phone] [place] [phone] [facility] Bedside Delivery [phone] [place] [phone] [place] [phone] Internal Medicine Daily Progress Note Patient: George Styles, 1970, [id number] Physician: Evan Kelly MD, PGY-1, TM1 service Subjective/Interval History: Patient continues to require oxygen overnight for desaturations. With insurance limitations, only accepting agency to provide home oxygen backed out. After calling them to discuss, Lynn stated she would be willing to have patient drive to their facility to garbage pick up worker supplies, however they close at 5pm. 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 His [place] kidney disease was noted to be presumed [...] losartan 50mg BID CAD: non-obstructive CAD on [facility] 2018. - continue home aspirin 81mg daily, [...] 5.05 (H) 11/19/2018 Kevin Sage MD, SERA Cytogenetic Technologist of Clinical Medicine [facility] Images from the original note were not included. Final Discharge Planning and Transportation Final Discharge Planning Discharge Disposition: Home Services at Discharge: Outpatient clinical services (ie: lab draws, transfusions, injectables) (Home Oxygen by [facility]) Selected Continued Care - Admitted Since 08/28/2023 Durable Medical Equipment Coordination complete. Service Provider Selected Services Address Phone Fax Patient Preferred [facility] [facility] Durable Medical Equipment [address] [facility] [address] Internal Comment last updated by Lora Alexander RN 09/10/2023 1334 Correct contact information: [employer] [address] [place] [address] [place] [address] licensed electrician- you do not need to call at discharge, I already notified the company. Addendum 152 [facility] notified this CM they are out of patient's insurance area and will not be able to service this patient at time of discharge. Provider notified. Addendum [phone] Dr Kelly called [facility] spoke to Lynn and she said they are willing to accept patient if the patient would drive to the [place] office and garbage pick up worker the supplies. Patient is willing to [...] Lora Colón RN, MSN, CCM, CMCN Clinical Dormitory Maid- [facility] Transplant #[phone] Department of Pharmacy Transplant Note Patient: George [...] dose adjustment Name: Matt Kramer RPh,Frankie Phone: [phone] Date/Time: 09/10/2023 11:33 AM This CM sent referral via A[employer] for O2 concentrator to [facility] Start date today Timer set for 1330 [employer] [facility] [place] Addendum 1367 One accepting company reserved in [address] [place] [address] Lora Colón RN, MSN, CCM, CMCN Clinical Dormitory Maid- [facility] Transplant #[phone] NUTRITION FOLLOW-UP Nutrition Plan of Care: 1. Continue current diet order. 2. No oral supplements warranted at this time. 3. Monitor for significant weight changes. Monitor GI, skin integrity. 4. Monitor and encourage po intakes with goal of average po being 75-100%. 5. resource technician to follow. ___ Met with patient [...] time. Will continue to monitor. RHIANNON BirminghamR Pager:[phone] Transplant Infectious Disease (Team 3) Progress Note [...] sign off. Please Epic message or page [phone] with questions. 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 His [place] kidney disease was noted to be presumed [...] losartan 50mg BID CAD: non-obstructive CAD on [facility] 2019. - continue home aspirin 81mg daily, [...] to follow. Please Epic message or page [phone] with questions. 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 His [place] kidney disease was noted to be presumed [...] losartan 50mg BID CAD: non-obstructive CAD on [facility] 2018. - continue home aspirin 81mg daily, holding atorvastatin 20mg daily Gout: continue home allopurinol 200mg daily BPH: continue home flomax 0.4mg daily DVT PPX: SQH Code Status: Full Code Disposition: Pending clinical course. Anticipate eventual discharge home. Discussed with team and attending, Kevin Sage MD, on rounds. 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 His [place] kidney disease was noted to be presumed [...] losartan 50mg BID CAD: non-obstructive CAD on [facility] 2018. - continue home aspirin 81mg daily, [...] 5.05 (H) 11/19/2018 Kevin Sage MD, SERA Cytogenetic Technologist of Clinical Medicine [facility] Transplant Infectious Disease [...] to follow. Please Epic message or page [phone] with questions. Ann Marie Haskins MD PGY-4, [...] he continues to improve. Please message via PandaDoc secure chat or page with any questions or concerns. Evan White DO Cytogenetic Technologist Division of Infectious Disease Transplant Infectious Disease [...] to follow. Please Epic message or page [phone] with questions. Evan White DO Transplant Infectious Diseases Images from the original note were not included. Pulmonary/Critical Care Medicine Daily Progress Note Reason for Consultation: bronch for infectious workup Requesting Physician: Dr. Sage CURRENT HOSPITALIZATION: Admit Date: 08/28/2023 [facility] Hospital LOS: 9 days Impression 1. [...] and interpreted reviewed the radiographic data in IHIS/[employer]. 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 His [place] kidney disease was noted to be presumed [...] losartan 50mg BID CAD: non-obstructive CAD on [facility] 2018. - continue home aspirin 81mg daily, [...] 5.05 (H) 11/19/2018 Kevin Sage MD, MADISONN Cytogenetic Technologist of Clinical Medicine [facility] Images from the original note were not included. Pulmonary/Critical Care Medicine Daily Progress Note Reason for Consultation: bronch for infectious workup Requesting Physician: Dr. Sage CURRENT HOSPITALIZATION: Admit Date: 08/28/2023 [facility] Hospital LOS: 8 days Impression 1. Acute [...] and interpreted reviewed the radiographic data in IHIS[facility] Acute Occupational Therapy Evaluation Prior to [...] Assessment: Transfer Assessment: Sit to Stand Transfer Mclean Level: Sit->Stand: independent Skilled Intervention/Details: Sit->Stand: x1 from EOB, x1 from toilet Stand to Sit Transfer Mclean Level: Stand->Sit: independent Skilled Intervention/Details: Stand->Sit: x1 to toilet, x1 to EOB Functional Mobility: Functional Mobility Mclean Level: Functional Mobility/Gait: independent Ambulation Distance (Feet): 20 Skilled Intervention/Details - Functional Mobility/Gait: pt performed functional mobility to/from RR w/ no overt LOB Outcome Score(s): CURRENT [facility] Daily Activity Inpatient Short Form Putting on/Taking Off Lower Body Clothin - A Little Assistance Bathin - A Little Assistance Toiletin - A Little Assistance Putting on/Taking Off Upper Body Clothin - No Assistance Groomin - No Assistance Eatin - No Assistance CURRENT [facility] Activity Raw Score: 21 CURRENT [facility] Activity Functional Limitation/Modifier: 32.79% Currently Impaired in [...] Acute Physical Therapy Evaluation Prior to Admission [facility] score(s): PRIOR LEVEL AM-PAC Mobility Raw Score: [...] Intact Mobility Assessment: Supine to Sit Mobility Mclean Level: Supine->Sit: modified independence Bed Features/Set-up: Supine->Sit: Head of bed elevated Sit to Supine Mobility Mclean Level: Sit->Supine: not tested Balance: Sitting Balance [...] environment. Transfer Assessment: Sit to Stand Transfer Mclean Level: Sit->Stand: independent Skilled Intervention/Details: Sit->Stand: From EOB x 2 without difficulty. Stand to Sit Transfer Mclean Level: Stand->Sit: independent Assistive Device: Stand->Sit: armed chair Skilled Rationale: Verbal cues, Positioning Gait/Functional Mobility: Gait Assessment Mclean Level: Gait: stand-by assist Assistive Device: Gait: rollator Ambulation Distance (Feet): 400 Gait Deviations Identified: decreased grace, decreased gait speed Gait Skilled Rationale: verbal, upright posture, increase step length, increase foot clearance Skilled Intervention/Details - Gait: Reasonable foot clearnce without loss of balance but endorsing dyspnea as 6-7/10. Stairs: Stairs Assessment Mclean Level: Stair Negotiation: not tested Outcome Score(s): [...] CURRENT AM-PAC Mobility Raw Score: 21 CURRENT AM-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 His [place] kidney disease was noted to be presumed [...] losartan 50mg BID CAD: non-obstructive CAD on [facility] 2018. - continue home aspirin 81mg daily, [...] 5.05 (H) 11/19/2018 Kevin Sage MD, SERA Cytogenetic Technologist of Clinical Medicine [facility] Transplant Infectious Disease [...] to follow. Please Epic message or page [phone] with questions. Evan White DO Transplant Infectious Diseases Images from the original note were not included. 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 His [place] kidney disease was noted to be presumed [...] losartan 50mg BID CAD: non-obstructive CAD on [facility] 2019. - continue home aspirin 81mg daily, [...] P 450 system Kevin Sage MD, SERA Cytogenetic Technologist of Clinical Medicine [facility] ERT Note: ERT called [...] MD, PhD Internal Medicine and Pediatrics PGY-3 [facility] Brief plan of care update: Called [...] MD, PhD Internal Medicine and Pediatrics PGY-3 [facility] Transplant Infectious Disease (Team 3) Progress [...] to follow. Please Epic message or page [phone] with questions. 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 His [place] kidney disease was noted to be presumed [...] 2/2 renal function CAD: non-obstructive CAD on [facility] 2018. 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 His [place] kidney disease was noted to be presumed [...] 2/2 renal function CAD: non-obstructive CAD on [facility] 2018. - continue home aspirin 81mg daily, [...] 5.05 (H) 11/19/2018 Kevin Sage MD, SERA Cytogenetic Technologist of Clinical Medicine [facility] [employer] [...] Lora Colón RN, MSN, CCM, CMCN Clinical Dormitory Maid- R10 Transplant #[phone] Made introductory visit with patient. Provided emotional and spiritual support. Patient shared about: - Source of Rosemary: Camping/Fishing/Family - Spirituality/Buddhism Affiliation: raised Methodist - Family Support/history - Experience with illness/hospital course - Hopes for healing/future Semiconductor Wafers Tester provided: - Supportive presence - Active listening - Validation of feelings/emotions - Pledged prayer Patient encouraged to request a cafe or restaurant manager as needed. Chaplains are available in-house 24 hours a day and 7 days a week. For urgent matters in [facility], please page [phone]. If the request is not urgent, please enter a consult. Consults are responded to within 24 hours. Senior Staff Semiconductor Wafers Tester Angie Singh Mdiv, [facility] Kirk [phone] [email or web address] 22/06 On-call [place]: [phone] 22/06 Pager ,BS, and Brock Hernandez Pager [phone] 09/02/23 1117 Clinical Encounter Type Visited With Patient Visit Type Introduction Pastoral Time Spent 15 min Referral Other (See Comment) (rounding) Spiritual Assessment Spiritual Observation Spirituality helpful Emotional Observation Coping well Hope Observation Specific hope focus Support Observation By Family Interventions Provided Active listening;Supportive presence Facilitated Verbalization of feelings Explored Expectations Engineering Assistant Education Engineering Assistant Service Available Yes Educated Patient Outcomes Patient Outcomes Reduced distress Plan of Care Continue Visiting PRN NUTRITION RISK SCREENING NOTE Nutrition Plan of Care: 1. Continue current diet order. 2. No oral supplements warranted at this time. 3. Monitor for significant weight changes. Monitor GI and skin integrity. 4. Monitor and encourage po intakes with goal of average po being 100%. 5. resource technician to follow. George Styles is a 53 y.o. 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 His [place] kidney disease was noted to be presumed hepatorenal syndrome. His post-transplant course was noteworthy for nephrostomy tube (05/17/2022-09/10/2022) due to concern for ureteral stone. He presents as a direct admission for fever, cough, for infectious workup. Pt unavailable and information obtained via chart review Export Clerk Screening Pt's appetite is good. Pt with [...] with meds Food Allergies reviewed:Shellfish Cultural or Buddhism Restrictions/Preferences: None GI: Last Bowel Movement: 09/01/23 [...] time. Will continue to monitor. RHIANNON BirminghamR Pager:[phone] Internal Medicine Daily Progress Note Patient: George Styles, 1970, [id number] Physician: Evan Kelly MD, PGY-1, TM1 service [...] 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 His [place] kidney disease was noted to be presumed [...] 2/2 renal function CAD: non-obstructive CAD on [facility] 2018. - continue home aspirin 81mg daily, [...] as outlined above. Kevin Sage MD Pager [phone] Summary: Pharmacy Med Rec Department of Pharmacy [...] Provider: Zuly Bruno NP Pharmacy: [facility] [address] Other Comments: Patient reported his Last Home Dose of mycophenolate & tacrolimus was on 08/28/23 at 0900. Patient reported he was taking Bactrim and benzonatate for fevers and a cough he was having. Please feel free to contact me with any further questions. Name: Heidy Chatman Phone #: [phone] Date/Time: 09/01/2023 2:01 PM Time Spent: 15 minutes Associated attestation - Matt Kramer RPh,PharmD - 09/01/2023 2:28 PM EDT Department of Pharmacy Admission Medication Reconciliation Note Patient: George Styles Room/Bed: 1062/A I have reviewed the home medication list with the Electrotype Servicer. All changes to the home medication list have been updated in IHIS. Updated SHELLFISH CHECKER Med List: Prior to Admission Medications Prescriptions [...] questions. Name: Matt Kramer RPh,PharmD Phone #: [phone] Date/Time: 09/01/2023 2:28 PM Transplant Infectious Disease [...] crypto antigen, EBV PCR -follow pending histo, [id number] labs These recommendations were discussed with the primary team. Transplant ID (Team 3) will continue to follow. Please Epic message or page [phone] with questions. Evan White DO Transplant Infectious Diseases Internal Medicine Daily Progress Note Patient: George Styles, 1970, [id number] Physician: Evan Kelly MD, PGY-1, TM1 service [...] 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 His [place] kidney disease was noted to be presumed [...] 2/2 renal function CAD: non-obstructive CAD on [facility] 2018. - continue home aspirin 81mg daily, [...] 5.05 (H) 11/19/2018 Kevin Sage MD, SERA Cytogenetic Technologist of Clinical Medicine [facility] Discharge Planning Patient [...] Yes Name and Contact information: Gian Styles ([phone]) Reviewed and Updated in Demographics? : Yes Outpatient Providers Does patient have a primary care physician? : Yes When was the patient's last PCP visit?: > 30 days Does the patient follow any specialists?: No Reviewed and updated Care Team?: Yes Patient Care Team: Zuly Bruno CNP as PCP - General Environment/Caregivers Is the patient from a facility or detention?: No Patient lives with: Alone Living Environment: [...] patient on Anticoagulation? 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 : No Employed?: Disabled Coping/Stress Concerns about patient s coping and stress?: No Concerns about patient s caregiver s coping and stress?: No Values and Beliefs Cultural or mu-ism practices that may impact discharge planning and/or [...] Plan 1. Identified self and role as Dormitory Maid. 2. Confirmed and updated demographics and treatment team. 3. Dormitory Maid will continue to follow with medical team/pt for any other additional discharge needs. Kasandra DON RN [facility] [phone] *Please note I am float and work Thursday and Thursday every other week. Please call [phone] for assist in my absence. Internal Medicine Daily Progress Note Patient: George Styles, 1970, [id number] Physician: Evan Kelly MD, PGY-1, TM1 service [...] 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 His [place] kidney disease was noted to be presumed [...] 2/2 renal function CAD: non-obstructive CAD on [facility] 2018. - continue home aspirin 81mg daily, [...] 5.05 (H) 11/19/2018 Kevin Sage MD, SERA Cytogenetic Technologist of Clinical Medicine [facility] Internal Medicine Daily Progress Note Patient: George Styles, 1970, [id number] Physician: Laurel Serrano MD, PhD, PGY-3, TM1 [...] 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 His [place] kidney disease was noted to be presumed [...] losartan 50mg BID CAD: non-obstructive CAD on [facility] 2018. - continue home aspirin 81mg daily, atorvastatin 20mg daily Gout: continue home allopurinol 200mg daily BPH: continue home flomax 0.4mg daily DVT PPX: SQH Code Status: Full Code Disposition: Pending clinical course. Anticipate eventual discharge home. Discussed with team and attending, Kevin Sage MD, on rounds. Signed, Laurel Serrano MD, PhD documented in this encounter [facility] 09-10-2023 Hospital Discharge instructions Laurel Serrano MD, [...] a sleep doctor. You will need to garbage pick up worker the oxygen concentrator when you leave [...] on healthy foods. documented in this encounter [facility] 09-01-2023 Consult note Associated Order (s): IP CONSULT TO PULMONOLOGY Pulmonary Medicine Inpatient Consultation Reason for Consultation: bronch for infectious workup Requesting Physician: Dr. Sage Pulmonary Attending Physician: Dr. Diaz CURRENT HOSPITALIZATION: Admit Date: 08/28/2023 [facility] Hospital LOS: 4 days Impression/Recommendations: George Styles [...] Recommendations: - Plan to bronch tomorrow morning. NPO@WA, order placed - would repeat HIV, last [...] short period of time. 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 Other histories as documented in the [...] had any ill contacts. [place] [facility] REVIEW OF SYSTEMS A [...] GUIDANCE 05/17/2022 Surgeon: Enzo Heart DO; [facility] (VIR) LIVER TRANSPLANT, ORTHOTOPIC N/A 04/12/2020 Laterality: N/A; Surgeon: LU Palma; Location: [facility] SAME DAY SURGERY MAIN OR KIDNEY TRANSPLANT W/[place] NEPHRECTOMY N/A 04/12/2020 Laterality: N/A; Surgeon: LU Palma; Location: [facility] SAME DAY SURGERY MAIN OR OTHER SURGICAL [...] Alamo MD I can be reached via PandaDoc secure message (preferred) or Pager #[phone] documented in this encounter [facility] 08-28-2023 History and physical note Images from the original note were not included. Internal Medicine Admission History & Physical Patient: George Styles, 1970, [id number] Physician: Aric Turner MD, PGY1, Pager #[phone], QR service Date of face to face patient [...] So he went to see the transplant furnace packer. He was found elevated Cr and asked [...] Appetite is ok now. Urine is about 6795-5745 ml every day. Stool every day, no [...] GUIDANCE 05/17/2022 Surgeon: Enzo Heart DO; Location: [facility] INTERVENTIONAL RADIOLOGY (VIR) LIVER TRANSPLANT, ORTHOTOPIC N/A 04/12/2020 Laterality: N/A; Surgeon: LU Palma; Location: [facility] SAME DAY SURGERY MAIN OR KIDNEY TRANSPLANT W/O [place] NEPHRECTOMY N/A 04/12/2020 Laterality: N/A; Surgeon: LU Palma; Location: [facility] SAME DAY SURGERY MAIN OR OTHER SURGICAL [...] 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 His [place] kidney disease was noted to be presumed [...] Urinary histoplasmosis - PJP, candid PCR - Catering Associate transplant ID Acute Kidney Injury with Kidney [...] losartan 50mg BID CAD: non-obstructive CAD on [facility] 2018. - continue aspirin 81mg daily, atorvastatin [...] Pierson, Luisa Steven, Renee Rivera, Daisha Max Board Certified Arts Therapist: José Miguel Garnica All Txt: 04/13/2020 (Kidney), [...] results found for: CYCLOSPORIN , CYCLOSPORIN2 , [id number] , CYCLORAND No results found for: SIROLIMUS [...] Rest as above. Kevin Sage MD Pager [phone] [facility] History of Present illness Narrative Images from the original note were not included. 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 Board Certified Arts Therapist: Anayeli Burt Date of Liver Transplant: 04/13/2020 (Kidney), 04/13/2020 (Liver) 3 years 4 months post Liver/Kidney Transplant Primary Disease: Hypertensive Nephrosclerosis Transplant Command And Control Officer: Erma Roe/ Daisha Max Primary Care physician: [...] and faMOTIdine === None Specified Preferred Lab: [facility] Change in lab frequency / new order [...] every 12 hours. ADDITIONAL INFORMATION: None Specified, [id number] [place] [address] - [address] [facility] [phone] [facility] [address] [facility] [address] [facility][id number] [place] [address] [address] [facility] [address] [facility] [address] [facility] [address], [facility] [address] [address] ROS and SCREEN: Chest Pain: negative Cough: [...] PHYSICIAN: I saw George Styles at the [facility] on 08/28/2023. Patient is a 53 y.o. 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 His [place] kidney disease was noted to be presumed [...] GUIDANCE 05/17/2022 Surgeon: Enzo Heart DO; Location: [facility] INTERVENTIONAL RADIOLOGY (VIR) LIVER TRANSPLANT, ORTHOTOPIC N/A 04/12/2020 Laterality: N/A; Surgeon: LU Palma; Location: [facility] SAME DAY SURGERY MAIN OR KIDNEY TRANSPLANT W/O [place] NEPHRECTOMY N/A 04/12/2020 Laterality: N/A; Surgeon: LU Palma; Location: [facility] SAME DAY SURGERY MAIN OR OTHER SURGICAL [...] me if you have any questions. Steve Lahtam MD dexigraph operator Division of Nephrology [facility] documented in this encounter [facility] 08-28-2023 Instructions Mainor Busby RN - 08/28/2023 2:15 PM EDT - Admission for fevers, cough, and night sweats documented in this encounter [facility] 08-19-2023 History of Present illness Narrative [facility] RX OUTREACH ADVANCED: Call Information: Date and Time of Contact: 08/19/2023 2:52 PM Method of Contact: By Phone Contact Type: Prescriptions Contactor: [facility] OP Contactee: Patient Shipping/Pickup: Medicare B Refill?: No Medication Name: Tacro 0.5mg Delivery Method: Air Delivery Location: Home Signature Required: No Mailing/Pickup Date: 08/25/2023 Shipping Address: [address] [place] [address] Contact Info: Specialty ([place]) [phone] [facility] [phone] [facility] [phone] [facility] [phone] Bedside Delivery ([facility]) [phone] documented in this encounter [facility] 06-12-2023 History of Present illness Narrative Images from the original note were not included. George Styles is a 53 y.o. 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 No longer follows with a local furnace packer. History of Present Illness: Since George was [...] records and lab results. Rebeca MITCHELL, RN, IT INTEGRATION ARCHITECT-BC, CCTN Certified Nurse Practitioner Comprehensive Transplant Center [facility] [address] [facility] [address] documented in this encounter [facility] 06-12-2023 Instructions JEANNA Hess - 06/12/2023 3:00 PM EDT No change in immunosuppression. documented in this encounter [facility] 06-10-2023 History of Present illness Narrative [facility] RX OUTREACH ADVANCED: Call Information: Method of Contact: By Phone Contact Type: Prescriptions Contactor: [facility] OP Contactee: Patient Contact Outcome: Left message Shipping/Pickup: Medication Name: Mycophenolate sod 180 mg Contact Info: Specialty ([place]) [phone] [facility] [phone] [facility] [phone] David [phone] Bedside Delivery ([facility]) [phone] [facility] OP RX OUTREACH ADVANCED: Call Information: Date and Time of Contact: 06/12/2023 9:43 AM Method of Contact: By Phone Contact Type: Prescriptions Contactor: [facility] OP Contactee: Patient Contact Outcome: Left message and Follow-up Shipping/Pickup: Medicare B Refill?: No Medication Name: Myco 180 Contact Info: Specialty ([place]) [phone] [facility] [phone] [facility] [phone] David [phone] Bedside Delivery ([facility]) [phone] [facility] OP RX OUTREACH ADVANCED: Call Information: Date and Time of Contact: 06/12/2023 10:08 AM Method of Contact: By Phone Contact Type: Prescriptions Contactor: [facility] OP Contactee: Patient Shipping/Pickup: Medicare B Refill?: No Medication Name: Mycophenolate 180mg DR Delivery Method: Air Delivery Location: Home Signature Required: No Mailing/Pickup Date: 06/17/2023 Shipping Address: [address] [place] [address] Contact Info: Specialty ([place]) [phone] Jakob [phone] [facility] [phone] David [phone] Bedside Delivery ([facility]) [phone] documented in this encounter [facility] 04-13-2023 Note [place] Cardiology - [facility] Subjective George Styles is a [...] Legacy Encounter on (more content not included)... [facility] 03-12-2023 History of Present illness Narrative [facility] OP RX OUTREACH ADVANCED: Call Information: Date and Time of Contact: 03/12/2023 10:34 AM Method of Contact: By Phone Contact Type: Prescriptions Contactor: [facility] OP Contactee: Patient Shipping/Pickup: Medicare B Refill?: No Medication Name: Mycophenoloate sod 360 mg prednisone 5mg Delivery Method: Air Delivery Location: Home Signature Required: No Mailing/Pickup Date: 03/16/2023 Shipping Address: [address] [place] [address] Contact Info: Specialty ([place]) [phone] Jakob [phone] [facility] [phone] David [phone] Bedside Delivery ([facility]) [phone] [facility] OUTREACH ADVANCED: Call Information: [...] Required: No Mailing/Pickup Date: 03/19/2023 Shipping Address: [address] [place] [address] [address] Contact Info: Specialty ([place]) [phone] [facility] [phone] [facility] [phone] David [phone] Bedside Delivery ([facility]) [phone] documented in this encounter [facility] 03-10-2023 History of Present illness Narrative [facility] OUTREACH ADVANCED: Call Information: Date and Time of Contact: 03/10/2023 12:00 PM Method of Contact: By Phone Contact Type: Prescriptions Contactor: [facility] Contactee: Patient Contact Outcome: Left message and Call back later Shipping/Pickup: Medication Name: Mycophenolate ; Tacrolimus Contact Info: Specialty ([place]) [phone] [facility] [phone] [facility] [phone] David [phone] Bedside Delivery ([facility]) [phone] documented in this encounter [facility] 03-10-2023 History of Present illness Narrative [facility] OUTREACH ADVANCED: Call Information: Date and Time of Contact: 03/10/2023 12:00 PM Method of Contact: By Phone Contact Type: Prescriptions Contactor: [facility] Contactee: Patient Contact Outcome: Left message and Call back later Shipping/Pickup: Medication Name: Mycophenolate ; Tacrolimus Contact Info: Specialty ([place]) [phone] [facility] [phone] [facility] [phone] David [phone] Bedside Delivery ([facility]) [phone] [facility] OUTREACH ADVANCED: Call Information: Date and Time of Contact: 03/12/2023 10:32 AM Method of Contact: By Phone Contact Type: Prescriptions Contactor: [facility] Contactee: Patient Contact Outcome: Left message Shipping/Pickup: Medication Name: Mycophenolate sodium (MYFORTIC) 180 MG Tab tacrolimus 0.5 mg Contact Info: Specialty ([place]) [phone] Jakob [phone] [facility] [phone] David [phone] Bedside Delivery ([facility]) [phone] documented in [facility] encounter [facility] 01[facility]16[facility] History of Present illness Narrative -Referring Provider for today's consult: Daisha Max DO -Primary Care Provider: Zuly Bruno History of Present Illness George Styles is a 52 y.o. male who presents to the [facility] today for follow-up of [...] GUIDANCE 05/17/2022 Surgeon: Enzo Heart DO; Location: [facility] INTERVENTIONAL RADIOLOGY (VIR) LIVER TRANSPLANT, ORTHOTOPIC N/A 04/12/2020 Laterality: N/A; Surgeon: LU Palma; Location: [facility] SAME DAY SURGERY MAIN OR KIDNEY TRANSPLANT W/O [place] NEPHRECTOMY N/A 04/12/2020 Laterality: N/A; Surgeon: LU Palma; Location: [facility] SAME DAY SURGERY MAIN OR OTHER SURGICAL [...] 0.3 12/29/2022 Explant Pathology Pathologic Diagnosis A. [place] liver, orthotopic liver transplant resection (1458 gram): [...] A/P with IV contrast (06/27/2022): 1. Both [place] kidneys are atrophic with improvement in right-sided [...] frequent nighttime urination, etc). Daisha Max DO Cytogenetic Technologist Gastroenterology, Hepatology and Nutrition [facility] Pager: [phone] Images from the original note were not included. 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 Board Certified Arts Therapist: Anayeli Burt Date of Liver Transplant: 04/13/2020 (Kidney), 04/13/2020 (Liver) 2 years, 8 months post Liver/Kidney Transplant Primary Disease: Hypertensive Nephrosclerosis Transplant Command And Control Officer: Steve Latham Primary Care physician: Zuly Bruno [...] levels: No results found for: CYCLOSPORIN, CYCLOSPORIN2, [id number], CYCLORAND No components found for: CYCLOSPORINE, 2HR [...] hours. ADDITIONAL INFORMATION: None Specified [id number] [place] [address] - [address] [facility] [facility] [facility] [facility] [facility] [phone] [facility] [place] [facility] [address] [facility], [address] [facility] [address] [id number] [place] [address] [address] [facility] [address] [facility] [address] [facility] Jakob [address], [address] [facility] [address] ROS and SCREEN: Chest Pain: negative Cough: [...] ADDRESS WITH PHYSICIAN: documented in this encounter [facility] 01-16-2023 Instructions José Miguel Garnica RN - 01/16/2023 9:40 AM EST - Labs Every 2 months - Discuss night time urination with your PCP - Schedule Colonoscopy through PCP - Follow up in 1 year documented in this encounter [facility] 09-10-2022 History of Present illness Narrative UROLOGY [...] and no hydronephrosis. Some reflux up the [place] right ureter but good drainage of both transplant and [place] ureter to the bladder. Nephrostomy tube was [...] transplant, orthotopic (N/A, 04/12/2020); kidney transplant w/o [place] nephrectomy (N/A, 04/12/2020); and placement nephrostomy catheter [...] Negative for , diarrhea, constipation Genitourinary: See KLUTI KAAH Neurological: Negative for headaches. Lymph/Heme: Negative for [...] x 4, Normal strength. No edema. Skin: [place], warm, and dry. There are no rashes [...] and no hydronephrosis. Some reflux up the [place] right ureter but good drainage of both transplant and [place] ureter to the bladder. Nephrostomy tube was [...] MD 09/10/22 documented in this encounter [facility] 07-07-2022 History of Present illness Narrative Patient [...] assisted off the table and escorted to switchboard operator receptionist where they made a follow up. [...] to have transplant ureter with anastomosis to [place] right ureter. Nephrostogram without filling defects and no hydronephrosis. Some reflux up the [place] right ureter but good drainage of both transplant and [place] ureter to the bladder. Nephrostomy tube was removed without issue. Patient does have some sensation of incomplete bladder emptying and occasional sensation in his right flank. PVR today was 33cc. Will re-evaluate urinary symptoms at next appointment. --continue Flomax --RTC in one month flow flow/PVR/IPSS Patient to call with any additional questions or concerns. Ryan Yepez MD 07/07/22 documented in this encounter [facility] 06-27-2022 History of Present illness Narrative UROLOGY [...] transplant, orthotopic (N/A, 04/12/2020); kidney transplant w/o [place] nephrectomy (N/A, 04/12/2020); and placement nephrostomy catheter [...] Negative for , diarrhea, constipation Genitourinary: See KLUTI KAAH Neurological: Negative for headaches. Lymph/Heme: Negative for [...] x 4, Normal strength. No edema. Skin: [place], warm, and dry. There are no rashes [...] yo male with a DDRT to the [facility] in 2019. Nephrostomy tube placed 05/17 [...] with any additional questions or concerns. Ryan Yepze MD 06/27/[address] yepez patient needed [...] bag if needed. documented in this encounter [facility] 06-27-2022 History and physical note Patient was evaluated in clinic as a nurse visit. Please refer to Rena Brewster's note. [facility] Work Phone: 06-27-2022 History and physical note Patient was evaluated in clinic as a nurse visit. Please refer to Rena Brewster's note. documented in this encounter [facility] 06-27-2022 History of Present illness Narrative TEACHING REGARDING TX NEPH COMPLETED-NEPH TUBE SITE DRY AND INTACT-CLEAR YELLOW URINE IN THE BAG-INSTRUCTED ABOUT FLUSHING, BAG CHANGING ETC. NUMEROUS QUESTIONS ASKED AND ANSWERED-VERBALIZED UNDERSTANDING documented in this encounter [facility] 06-18-2022 Note EXAMINATION: CT ABD/ PELVIS WO [...] mass or enlargement. KIDNEYS: Marked atrophy of [place] kidneys. Transplant right pelvic kidney with percutaneous [...] authenticated by: MÓNICA JIMENEZ Date: 2022-06-18 13:53 [facility] 06-12-2022 Instructions Anayeli Christianson RN - 06/12/2022 3:21 PM EDT Do not take apart/disrupt nephrostomy tube system. Call Interventional Radiology and/or on-call transplant nurse [phone] for instruction if need to flush (clot or decreased flow). Take cipro 500mg, one tablet, twice per day for 14 days documented in this encounter [facility] 06-12-2022 History of Present illness Narrative Images from the original note were not included. 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 Board Certified Arts Therapist: Anayeli Burt Date of Liver Transplant: 04/13/2020 (Kidney), 04/13/2020 (Liver) 2 year, 1 months post Liver/Kidney Transplant Primary Disease: Hypertensive Nephrosclerosis Transplant Command And Control Officer: Steve Latham Primary Care physician: Zuly Bruno [...] Non-obstructing kidney stone in renal graft at [facility]. Percutaneous Neph Tube placed Images from the original note were not included. Nursing Assessment In Clinic (see Clinic Prep Sheet for additional information) Patient is accompanied to clinic today by: self Did patient require a wheelchair or medical transport for appointment: no Did vest front presser confirm current address and insurance information is [...] AND PHARMACY: None Specified [facility] [place] [address] - [address] [facility] [facility] [phone] [facility] [address] [facility] [address] [id number] [place] [address] [address] [facility] [address] [facility] [address] [facility] [address], [address] [facility] [address] ROS and SCREEN: Chest Pain: negative Cough: negative SOB: negative Abd Pain: negative Nausea: positive Vomiting: negative Diarrhea: negative Constipation: negative Dysuria: positive Edema: negative Tremors: negative Headaches: negative Wound issues: negative Pt has neph tube w clear yellow urine. States he had a small clot that he dislodged QUESTIONS OR CONCERNS TO ADDRESS WITH PHYSICIAN: I saw George Styles at the [facility] on 06/12/2022. Patient is a 52 y.o. 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 His [place] kidney disease was noted to be presumed [...] GUIDANCE 05/17/2022 Surgeon: Enzo Heart DO; Location: [facility] INTERVENTIONAL RADIOLOGY (VIR) LIVER TRANSPLANT, ORTHOTOPIC N/A 04/12/2020 Laterality: N/A; Surgeon: LU Palma; Location: [facility] SAME DAY SURGERY MAIN OR KIDNEY TRANSPLANT W/O [place] NEPHRECTOMY N/A 04/12/2020 Laterality: N/A; Surgeon: LU [...] you have any questions. Steve Latham MD dexigraph operator Division of Nephrology [facility] documented in this encounter [facility] 06-04-2022 Instructions TATI GROVE - 06/04/2022 11:04 AM EDT Thank you for joining us for your neph tube follow up. We recommend routine exchange every 8-10 weeks. Please reach out at [phone] when it is time to set your next routine exchange. Thank you IR clinic documented in this encounter [facility] 06-04-2022 History of Present illness Narrative Met [...] exchange. Verbalized understanding. documented in this encounter [facility] 05-20-2022 Note Formatting of this n ote [...] time of his discharge. Leon Cook RN [facility] 05-20-2022 Miscellaneous Notes Patient discharged. AVS printed [...] provide teaching before his discharge Leon RN #[id number] Leon Cook RN Afternoon assessment completed at [...] Interdisciplinary Rounds/Family Conf Outcome: Ongoing Discussed with [facility] re: possible urine culture performed at their [...] with questions. Evan Byrd MD Urology, PGY-2 #[id number] I certify that this patient requires inpatient [...] Kallie Lorenzana RN documented in this encounter [facility] 05-20-2022 Note Formatting of this n ote [...] discharge/transition of care. Outcome: Adequate for Discharge [facility] 05-20-2022 Note Formatting of this n ote might be different from the original. Paged Vera Dillard MD R10 Rm [phone] Jensen George Please let's have a clear order on how the nephrostomy site dressing need to be changed when the patient goes home so we provide teaching before his discharge Leon RN #[id number] Leon Cook RN [facility] 05-20-2022 History of Present illness Narrative Images from the original note were not included. [facility] ([facility] Note: [facility] received the following discharge prescription(s): Medication reconciliation was completed with comparison to discharge reconciliation report. The prescription(s) will be delivered to the patient's bedside on 05/20/22. Total cost is $0. Yanira Her RPh,PharmD Specialty ([place]) [phone] Jakob [phone] [facility] [phone] David [phone] [place] [phone] Bedside Delivery ([facility]) [phone] Attending I saw George Styles at the [facility] on 05/19/2022. I saw and independently evaluated [...] Evan Bennett MD 650 mg at 05/18/22 0397 allopurinol (ZYLOPRIM) tablet 100 mg 100 mg [...] Daily Progress Note Patient: George Styles, 1970, [id number] Physician: Liam Julian MD, PGY-3, Pager #[phone], [email or web address] Subjective/Interval History: No acute events overnight. Passed [...] Saldana MD Division of Hospital Medicine Pager [phone] Attending I saw George Feliz Jensen at the [facility] on 05/18/2022. 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 Daya Saldana MD (Peggy) Division of Hospital Medicine Pager [phone] Internal Medicine Daily Progress Note Patient: George Styles, 1970, [id number] Physician: Nishant Gamez MD, PGY2, Pager #[phone], [id number] Subjective/Interval History: Worsening creatinine this morning with [...] MD (Peggy) Division of Hospital Medicine Pager [phone] Attending I saw George Styles at the [facility] on 05/17/2022. I saw and independently evaluated [...] 5 mg 5 mg Oral Q4H PRN Nishatn Gamez MD 5 mg at 05/16/22 154 [...] of chart and discussion with treatment team, Dormitory Maid has not identified needs at this time. [...] follow. Introduced self and role of the cafe or restaurant manager to patient. Provided emotional and spiritual support and the patient responded by sharing their experience and discussed the following: - Spirituality/Buddhism Affiliation: As a kid attended [employer] but not a strong identity now - Family support - pt's brothers live close by Semiconductor Wafers Tester provided: - Supportive presence - Active listening - Validation of feelings/emotions Patient encouraged to request a cafe or restaurant manager as needed. Chaplains are available in-house 24 hours a day and 7 days a week. For urgent matters in [facility], please page [phone]. If the request is not urgent, please enter a consult. Consults are responded to within 24 hours. Angie Singh Mdiv, [facility] [place] [address] [employer]iconductor Wafers Tester [facility] [employer]icon[employer] Wafers Tester Kirk [phone] [email or web address] [email or web address] [facility] Pager [phone] 22/06 Pager ,[facility], and Brock 1500 22/06 David Pager [phone] 05/16/22 1129 Clinical Encounter Type Visited With Patient Visit Type Introduction Pastoral Time Spent 15 min Referral Other (See Comment) (Rounding) Spiritual Assessment Spiritual Observation Spirituality helpful;Identifies as (see comment) (Religion) Emotional Observation Coping well Hope Observation Hopeful and accepting Support Observation By Family Interventions Provided Active listening;Supportive presence Facilitated Verbalization of feelings;Sharing of life story;Identifying support system Explored Expectations Engineering Assistant Education Engineering Assistant Service Available Yes Educated Patient Outcomes Patient Outcomes Articulated purpose/meaning Plan of Care Continue Visiting PRN Internal Medicine Daily Progress Note Patient: George Styles, 1970, [id number] Physician: Nishant Gamez MD, PGY2, Pager #[phone], [email or web address] Subjective/Interval History: Overall feeling okay this morning. 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 Objective/Observation: [...] Supervision Transfer Assessment: Sit to Stand Transfer Mclean Level: Sit->Stand: independent Skilled Intervention/Details: Sit->Stand: x1 from EOB Stand to Sit Transfer Mclean Level: Stand->Sit: supervision Assistive Device: Stand->Sit: armed chair Skilled Rationale: Controlled descent for sitting, Verbal cues Gait/Functional Mobility: Gait Assessment Mclean Level: Gait: supervision Assistive Device: Gait: gait belt Gait Distance (feet): 200 Gait Deviations Identified: decreased grace, decreased step length, decreased stride length Gait Skilled Rationale: verbal, upright posture Skilled Intervention/Details - Gait: Pt with steady gait without LOB or complaints of SOB. Stairs: Stairs Assessment Mclean Level: Stair Negotiation: stand-by assist Assistive Device: Stair Negotiation: gait belt, left rail (ascending) Number of stairs: 9 Stairs Skilled Rationale: reciprocal pattern Outcome Score(s): CURRENT [facility] Basic Mobility Inpatient Short Form Turning over in bed: 4 - No Assistance Sitting/standing from chair: 4 - No Assistance Moving from lying on back to sittin - No Assistance Moving to and from bed to chair: 4 - No Assistance Walk in hospital room: 3 - A Little Assistance Climbing 3-5 steps with a railin - A Little Assistance CURRENT [facility] Mobility Raw Score: 22 CURRENT [facility] Mobility Functional Limitation/Modifier: 20.91% Currently Impaired in [...] reported no concerns with discharging home with trevorton support. 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 IADL History IADLs: independent Primary Language: [place] Home Management Skills: independent Meal Prep Responsibility: [...] Assessment: Transfer Assessment: Sit to Stand Transfer Mclean Level: Sit->Stand: independent Skilled Rationale: Cues for increased safety Skilled Intervention/Details: Sit->Stand: x1 EOB Stand to Sit Transfer Mclean Level: Stand->Sit: supervision Assistive Device: Stand->Sit: gait belt, armed chair Skilled Rationale: Verbal cues, Controlled descent for sitting, Cues for increased safety Skilled Intervention/Details: Stand->Sit: cues for hand placement and controlled descent Functional Mobility: Functional Mobility Mclean Level: Functional Mobility/Gait: stand-by assist Assistive Device: Functional Mobility/Gait: gait belt Functional Mobility Distance: Distance needed for limited community mobility Functional Mobility Deficits: Activity tolerance, Balance, Decreased step length, Generalized weakness Functional Mobility Skilled Rationale: Verbal cues, Facilitate postural control Skilled Intervention/Details - Functional Mobility/Gait: cues for upright posture Outcome Score(s): CURRENT [facility] Daily Activity Inpatient Short Form Putting on/Taking Off Lower Body Clothin - A Little Assistance Bathin - A Little Assistance Toiletin - A Little Assistance Putting on/Taking Off Upper Body Clothin - No Assistance Groomin - No Assistance Eatin - No Assistance CURRENT [facility] Activity Raw Score: 21 CURRENT [facility] Activity Functional Limitation/Modifier: 32.79% Currently Impaired in [...] 04/12/2020 Laterality: N/A; Surgeon: LU Palma; Location: [facility] SAME DAY SURGERY MAIN OR KIDNEY TRANSPLANT W/O [place] NEPHRECTOMY N/A 04/12/2020 Laterality: N/A; Surgeon: LU [...] by: Mel Norman OT, OTR/L License #: [id number] pager # [phone] 05/20/2022 Upon discontinuation of Acute Care Occupational Therapy Services or patient discharge from the hospital this note represents the current Occupational Therapy Discharge Summary. documented in this encounter [facility] 05-20-2022 Hospital course Narrative Discharge Summary Name: [...] during his recent hospital stay at [facility]. As you may know, George Styles, [...] Saldana MD Division of Hospital Medicine p: [phone] f: [phone] CONSULTS DURING ADMISSION: IP CONSULT TO SURGERY - UROLOGY IP CONSULT TO NEPHROLOGY - TRANSPLANT (MEDICINE) IP CONSULT TO INTERVENTIONAL RADIOLOGY IP CONSULT TO PHYSICAL THERAPY IP CONSULT TO OCCUPATIONAL THERAPY IP CONSULT TO PHARMACY BEDSIDE DISCHARGE MED DELIVERY IMAGING / PROCEDURES / RESULTS: Should you require further information or copies of results or reports please contact Medical Information Management @ [phone] LABS AT TIME OF DISCHARGE: Lab Results [...] Bruno [address] / [place] [address] MEDICATIONS: Discharge Orders CT ABDOMEN/PELVIS WITHOUT CONTRAST [...] CAPS Generic drug: docusate Follow-up: Zuly Bruno, CASINO GAMING WORKER [address] [facility] [address] Schedule an appointment as soon as possible for a visit Follow-up appointment with your, primary care physician within 7-10 days, after discharge. [address] [facility] [id number] Follow up The department of urology will call you with a follow up appointment. LU Ovalle [address] 11[address] Floor [facility] [address] Follow up Please make a follow up appointment with Dr. Latham's office. Upcoming Appointments (up to five)-Some appointments for Medical Center outpatient clinics or diagnostic testing locations are not displayed below Provider Department Dept Phone 06/04/2022 10:40 AM [facility] Interventional Radiology Clinic [phone] 06/27/2022 1:30 PM [facility] Department of Radiology Arrive at: Arrive to First Floor Registration Desk [phone] 06/27/2022 2:40 PM Ryan Yepez [facility] Arrive at: Arrive to 2nd Floor, Registration [id number] 10/31/2022 1:00 PM Steve Latham [facility] Transplant [facility] [phone] 01/16/2023 9:40 AM TRANSPLANT HEPATOLOGY , [facility] Transplant [facility] [phone] Associated attestation - Daya Saldana MD - [...] MD (Peggy) Division of Hospital Medicine Pager [phone] documented in this encounter [facility] 05-20-2022 Hospital Discharge instructions Giulia Cavazos RN [...] be changed by Interventional Radiology. Please call [phone] to schedule this appointment and with any questions or concerns you may have regarding the nephrostomy tube. If you have questions or concerns, please call Interventional Radiology at SOMEONE FROM INTERVENTIONAL RADIOLOGY WILL CALL YOU FOR A FOLLOW UP IN THE IR CLINIC Giulia Cavazos RN Nurse Coordinator Interventional Radiology Interventional Radiology Outpatient scheduling documented in this encounter [facility] 05-19-2022 Note Formatting of this n ote [...] Ongoing Goal: Interdisciplinary Rounds/Family Conf Outcome: Ongoing [facility] 05-19-2022 Note Formatting of this n ote might be different from the original. Discussed with [facility] re: possible urine culture performed at their facility. However, based on urinalysis completed at that time, which was only notable for hematuria, culture was not performed and sample no longer feasible for culture. Liam Julian MD Internal Medicine/Pediatrics, PGY-3 [facility] 05-18-2022 Note Formatting of this n ote might be different from the original. 2002: IHIS message sent to Dr Justyn Wen, regarding patient passing a small kidney stone, about the size of pea. MD notified. Stone left in strainer in pt bathroom. 0500: IHIS message sent to Dr Justyn Wen, regarding pt BP 174/77. [facility] 05-18-2022 Note Formatting of this n ote [...] outcomes by discharge/transition of care. Outcome: Ongoing [facility] 05-18-2022 Note Formatting of this n ote [...] becomes hyponatremic, NS should instead be used. [facility] Work Phone: 05-18-2022 Note Formatting of this n ote might be different from the original. IHIS chat sent to Dr Tray Quintana, regarding pt BP 190/86. Pt complaining of pain at site of neph tube. PRN pain medication given per order parameters. Pt denies any other symptoms at this time. MD notified and aware. [facility] 05-17-2022 Note Formatting of this n ote might be different from the original. At 0900, I rounded with Dr. Gamez and Dr. Saldana. At that time I checked Mr. Styles's vital signs. His pulse oximeter was low and he was tachypneic. Verbal order at bedside to put nasal cannula on starting at 2liters oxygen and to provide incentive spirometer. [facility] 05-17-2022 Note Formatting of this n ote might be different from the original. Interventional Radiology procedure completed with IR Attending Dr. Heart / Dr. Le of percutaneous right nephrostomy tube placement transplant kidney 10.2 Fr Griffin acosta Pt tolerated procedure with moderate sedation local numbing agent . Transported to inpatient after phase I recovery. Post procedure orders in place. [facility] 05-16-2022 Note Formatting of this n ote might be different from the original. At 1530, I text chavad Kaitlynn Gomez MD that patient has only had 25ml urine output in myers this afternoon. [facility] 05-16-2022 Note Formatting of this n ote [...] with questions. Evan Byrd MD Urology, PGY-2 #[id number] [facility] Work Phone: 05-16-2022 Note Formatting of this n ote might be different from the original. I certify that this patient requires inpatient services at this time. I anticipate the expected length of stay will include at least two midnights. Inpatient services are due to the following medical concerns Obstructive kidney stone. Plans for post hospitalization care will be discharge to home. [facility] 05-16-2022 Consult note Associated Order (s): IP CONSULT TO NEPHROLOGY - TRANSPLANT (MEDICINE) I saw George Styles at the [facility] on 05/16/2022. Reason for Consultation: kidney stone [...] he was given flomax and sent home. Mcalister better but noticed more pain and decreased [...] best assessment and recommendations. Maxi Pringle MD [facility] Work Phone: 05-16-2022 Consult note Associated Order (s): IP CONSULT TO NEPHROLOGY - TRANSPLANT (MEDICINE) I saw George Styles at the [facility] on 05/16/2022. Reason for Consultation: kidney stone [...] he was given flomax and sent home. Mcalister better but noticed more pain and decreased [...] states he went to his local ED [place] and he was put on Flomax and he did improve. Pt states last night he was unable to void with severe right sided abd pain. Pt states nausea and no vomiting or fevers. Pt states he went back to [place] ED at 0100 and they placed a [...] orthotopic (N/A, 04/12/2020); and kidney transplant w/o [place] nephrectomy (N/A, 04/12/2020). 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 The [place] kidneys are progressively atrophic bilaterally compared to [...] of 06/14/2020 are no longer present. The [place] distal right ureter is decompressed beyond this [...] with surgical history for renal graft and [place] right urinary drainage, as a discrete ureteroneocystostomy is not identified, and the graft may be draining via a ureteroureterostomy. Urology consultation recommended. 3. The [place] kidneys are bilaterally atrophic, with right renal sinus calcifications consistent with nonobstructing right [place] renal calculi up to 6 mm. Normal [...] PGY-3, Department of Urologic Surgery Pager #: [phone] Associated attestation - Ryan Yepez MD - [...] continue flomax documented in this encounter [facility] 05-16-2022 Note Formatting of this [...] supported Trust Relationship/Rapport: care explained choices provided [facility] 05-16-2022 Note Formatting of this n ote might be different from the original. On admission to 0, a dual RN initial assessment of skin condition was performed by Kallie Lorenzana RN and Sheri Arguelles RN. Skin Assessment: WDL Jose Score: 20 LDA Added:N Kallie Lorenzana RN [facility] 05-15-2022 Emergency department Note Report given to Kallie RN at [facility] 05-15-2022 Emergency department Note Report given to Kallie RN at [facility] Bladder scan with Dr Villatoro at bedside, [...] diagnosed Thursday [facility] He went back to that [facility] [...] DAY SURGERY MAIN OR KIDNEY TRANSPLANT W/O [place] NEPHRECTOMY N/A 04/12/2020 Laterality: N/A; Surgeon: LU Palma; Location: [facility] SAME DAY SURGERY MAIN OR OTHER SURGICAL [...] Schneider MD Resident 05/15/222030 Pt arrives from [facility] with kidney stones. Pt states he had right lower abd pain and right flank pain with blood in his urine since Thursday. Pt states he went to his local ED [place] and he was put on Flomax and he did improve. Pt states last night he was unable to void with severe right sided abd pain. Pt states nausea and no vomiting or fevers. Pt states he went back to [place] ED at 0100 and they placed a myers and CT scan completed and multiple kidney stones noted. [facility] as he had liver and kidney transplant in 03/2020. documented in this encounter [facility] 05-15-2022 History and physical note Internal Medicine Admission History & Physical Patient: George Styles, 1970, [id number] Physician: Evan Bennett MD, PGY1, Pager #[phone], GM 4 service Date of face to [...] DAY SURGERY MAIN OR KIDNEY TRANSPLANT W/O [place] NEPHRECTOMY N/A 04/12/2020 Laterality: N/A; Surgeon: LU Palma; Location: [facility] SAME DAY SURGERY MAIN OR OTHER SURGICAL [...] erythema: Skin: No jaundice or rash Neuro: fluorescent solution mixer 3-7, 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 Strength grossly [...] dilation of the calyces may represent narrowing/partial [id number] ofthe ureter and mild hydronephrosis or sequela [...] Fred Prince MD Division of Hospital Medicine [phone] [facility] Work Phone: 05-15-2022 History and physical note Internal Medicine Admission History & Physical Patient: George Styles, 1970, [id number] Physician: Evan Bennett MD, PGY1, Pager #[phone], 4 service Date of face to face [...] DAY SURGERY MAIN OR KIDNEY TRANSPLANT W/O [place] NEPHRECTOMY N/A 04/12/2020 Laterality: N/A; Surgeon: LU [...] erythema: Skin: No jaundice or rash Neuro: fluorescent solution mixer 3-7, 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 Strength grossly [...] dilation of the calyces may represent narrowing/partial [id number] ofthe ureter and mild hydronephrosis or sequela [...] Medicine [id number] documented in this encounter [facility] 05-15-2022 Emergency department Note Bladder scan with Dr Villatoro at bedside, 14ml noted [facility] 05-15-2022 Consult note Associated Order (s): IP [...] states he went to his local ED [place] and he was put on Flomax and he did improve. Pt states last night he was unable to void with severe right sided abd pain. Pt states nausea and no vomiting or fevers. Pt states he went back to [place] ED at 0100 and they placed a [...] orthotopic (N/A, 04/12/2020); and kidney transplant w/o [place] nephrectomy (N/A, 04/12/2020). 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 The [place] kidneys are progressively atrophic bilaterally compared to [...] of 06/14/2020 are no longer present. The [place] distal right ureter is decompressed beyond this [...] with surgical history for renal graft and [place] right urinary drainage, as a discrete ureteroneocystostomy is not identified, and the graft may be draining via a ureteroureterostomy. Urology consultation recommended. 3. The [place] kidneys are bilaterally atrophic, with right renal sinus calcifications consistent with nonobstructing right [place] renal calculi up to 6 mm. Normal [...] PGY-3, Department of Urologic Surgery Pager #: [phone] Associated attestation - Ryan Yepez MD - [...] before surgical intervention --may continue flomax [facility] Work Phone: 05-15-2022 Emergency department Note Advised Dr Schneider concerning no urine output via myers catheter. [facility] 05-15-2022 Physician Emergency department Note ED Attending [...] plan of care. Gian Villatoro MD 05/15/222003 [facility] Work Phone: 05-15-[address] Schneider made aware of only 30 ml urine via myers since arrival to room. [facility] 05-15-2022 Physician Emergency department Note dEPARTMENT of [...] DAY SURGERY MAIN OR KIDNEY TRANSPLANT W/O [place] NEPHRECTOMY N/A 04/12/2020 Laterality: N/A; Surgeon: LU [...] incorrections. Matt Schneider MD Resident 05/15/222030 [facility] Work Phone: 05-15-2022 Emergency department Note Pt arrives from [facility] with kidney stones. Pt states he had right lower abd pain and right flank pain with blood in his urine since Thursday. Pt states he went to his local ED [place] and he was put on Flomax and he did improve. Pt states last night he was unable to void with severe right sided abd pain. Pt states nausea and no vomiting or fevers. Pt states he went back to [place] ED at 0100 and they placed a myers and CT scan completed and multiple kidney stones noted. [facility] as he [facility] and kidney transplant in 03/2020. [facility] 03-14-2022 History of Present illness Narrative [facility]: Call Information: Date and Time of Contact: 03/14/2022 5:01 PM Method of Contact: By Phone Contact Type: Prescriptions Contactor: [facility] Contactee: Patient Shipping/Pickup: Medicare B Refill?: No Medication Name: Mycophenolate sodium 180 mg and tacrolimus 0.5 mg Delivery Method: Air Delivery Location: Home Signature Required: No Mailing/Pickup Date: 03/17/2022 Shipping Address: [address] [place] [address] [address] Contact Info: Specialty ([place]) [phone] [facility] [phone] [facility] [phone] David [phone] Bedside Delivery ([facility]) [phone] documented in this encounter [facility] 06-14-2021 History of Present illness Narrative [facility] [...] Goal Progress: Satisfactory Contact Info: Specialty ([place]) [phone] Jakob [phone] [facility] [phone] [facility] [phone] Bedside Delivery ([facility]) [phone] [facility]: Call Information: Date [...] Location: Home Signature Required: Yes Shipping Address: [address] [place] [id number] Contact Info: Specialty ([place]) [phone] [facility] [phone] [facility] [phone] [facility] [phone] Bedside Delivery ([facility]) [phone] [facility] Diagnosis FAYE (acute kidney injury)- Primary Acute kidney failure, unspecified Hydronephrosis due to obstruction of ureteral orifice Hydronephrosis due to obstruction of ureteral orifice FAYE (acute kidney injury) Acute kidney failure, unspecified [facility] Diagnosis Follow-up exam- Primary Unspecified follow-up examination [facility] Diagnosis Immunosuppressed status- Primary Unspecified disorder of immune mechanism Kidney replaced by transplant Liver replaced by transplant Abnormal blood chemistry Other abnormal blood chemistry High risk medication use Encounter for long-term (current) use of other medications Aftercare following organ transplant Liver transplant recipient [facility] Attention to nephrostomy- Primary [facility] Diagnosis Other hydronephrosis- Primary [facility] Diagnosis FAYE (acute kidney injury) Acute kidney failure, unspecified [facility] Diagnosis Other hydronephrosis- Primary -donor kidney transplant recipient Kidney replaced by transplant [facility] Diagnosis Other hydronephrosis [facility] Diagnosis 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) Encounter for screening for malignant neoplasm of prostate Special screening for malignant neoplasm of prostate [facility] Diagnosis Abnormal blood chemistry- Primary Other abnormal blood chemistry Liver transplant recipient Kidney replaced by transplant Immunosuppressed status Unspecified disorder of immune mechanism Aftercare following organ transplant [facility] Diagnosis Kidney replaced by transplant- Primary [facility] Diagnosis Immunosuppressed status- Primary Unspecified disorder of immune mechanism Kidney replaced by transplant Aftercare following organ transplant High risk medication use Encounter for long-term (current) use of other medications Other general symptoms and signs Abnormal blood chemistry Other abnormal blood chemistry Hypertension secondary to other renal disorders [facility] Diagnosis Histoplasmosis- Primary Histoplasmosis, unspecified without [...] Fever, unspecified [facility] Consultation (Routine) - New Request Specialty Diagnoses / Procedures Referred By Deni edwards Referred To Contact Interventional Radiology Diagnoses Hydronephrosis due to obstruction of ureteral orifice Daya Saldana MD [address] [place] [address] Referral ID Status Reason Start Date Expiration Date V isits Requested Visits Authorized [id number] New Request 05/18/2022 06/12/2023 1 1 * Radiology (Emergency) - New Request Specialty Diagnoses / Procedures Referred By Deni edwards Referred To Contact Procedures US RENAL TRANSPLANT SCAN Daya Saldana MD [address] [place] [address] Referral ID Status Reason Start Date Expiration Date V isits Requested Visits Authorized [id number] New Request 05/16/2022 06/10/2023 1 1 * Consultation (Routine) - New Request Specialty Diagnoses / Procedures Referred By Deni edwards Referred To Contact Urology Diagnoses FAYE (acute kidney injury) Ryan Yepez MD [address] [facility] [address] [place] [address] Referral ID Status Reason Start Date Expiration Date V isits Requested Visits Authorized [id number] New Request 05/16/2022 06/10/2023 1 1 * MRI/CAT Scan (Routine) - New Request Specialty Diagnoses / Procedures Referred By Contac t Referred To Contact Diagnoses FAYE (acute kidney injury) Procedures CT ABDOMEN/PELVIS WITHOUT CONTRAST CHG CT SCAN,ABDOMENT AND PELVIS,W/O CONTRAST Ryan Yepez MD [address] [place] [address] Referral ID Status Reason Start Date Expiration Date V isits Requested Visits Authorized [id number] New Request 05/16/2022 06/10/2023 1 1 * (Routine) - Pending Review Specialty Diagnoses / Procedures Referred By Contac t Referred To Contact Procedures PLATELET MONITORING PER PROTOCOL Daya Saldana MD [address] [place] [address] Referral ID Status Reason Start Date Expiration Date V isits Requested Visits Authorized [id number] Pending Review 05/15/2022 06/09/2023 1 1 * (Routine) - Pending Review Specialty Diagnoses / Procedures Referred By Contac t Referred To Contact Procedures DVT/VTE RISK ASSESSMENT Daya Saldana MD [address] [place] [address] Referral ID Status Reason Start Date Expiration Date V isits Requested Visits Authorized [id number] Pending Review 05/15/2022 06/09/2023 1 1 * (Routine) Specialty Diagnoses / Procedures Referred By Contac t Referred To Contact Evan Bennett MD [address] [place] [address] Referral ID Status Reason Start Date Expiration Date Visits Re quested Visits Authorized * (Routine) Specialty Diagnoses / Procedures Referred By Contac t Referred To Contact Evan Bennett MD [address] [place] [address] Referral ID Status Reason Start Date Expiration Date Visits Re quested Visits Authorized [facility] for referral (narrative)* Consultation (Routine) - New Request Specialty Diagnoses / Procedures Referred By Contac t Referred To Contact Sleep Medicine Diagnoses Hypoxia Kevin Sage MD [address] [place] [phone] Referral ID Status Reason Start Date Expiration Date V isits Requested Visits Authorized [id number] New Request 09/10/2023 10/04/2024 1 1 * MRI/CAT Scan (Routine) - New Request Specialty Diagnoses / Procedures Referred By Contac t Referred To Contact Diagnoses Histoplasmosis Procedures CT CHEST WITHOUT CONTRAST CHG DIAGNOSTIC COMPUTED TOMOGRAPHY THORAX W/O CNTRST Kevin Sage MD [address] [place] [phone] Referral ID Status Reason Start Date Expiration Date V isits Requested Visits Authorized [id number] New Request 09/10/2023 10/04/2024 1 1 * Radiology (Routine) - New Request Specialty Diagnoses / Procedures Referred By Deni t Referred To Contact Procedures US RENAL TRANSPLANT SCAN Steve Latham MBBS [address] [place] [address] Referral ID Status Reason Start Date Expiration Date V isits Requested Visits Authorized [id number] New Request 08/29/2023 09/22/2024 1 1 * (Routine) - New Request Specialty Diagnoses / Procedures Referred By Contac t Referred To Contact Procedures PLATELET MONITORING PER PROTOCOL Steve Latham MBBS [address] [place] [phone] Referral ID Status Reason Start Date Expiration Date V isits Requested Visits Authorized [id number] New Request 08/28/2023 09/21/2024 1 1 * (Routine) - New Request Specialty Diagnoses / Procedures Referred By Contac t Referred To Contact Procedures DVT/VTE RISK ASSESSMENT Steve Latham MBBS [address] [place] [phone] Referral ID Status Reason Start Date Expiration Date V isits Requested Visits Authorized [id number] New Request 08/28/2023 09/21/2024 1 1 [facility] Instructions * Patient Instructions - Christin Elizabeth APRN-ROB - 10/19/2018 9:21 AM EST You should take an extra dose of the lactulose as needed so that you are having 3-4 bowel movementsdaily. You should start the chemical dependency counseling as soon as possible. If you have questions, call the transplant social media manager Melania Pierson. in this encounter* Patient Instructions - Sophie Cary RN - 10/12/2018 11:09 AM EST You have been seen in the pre-transplant evaluation clinic by Dr. Restrepo and Sophie Cary. Sophie Cary is your pre-marketing content coordinator she can be reached at [phone] at any time for questions during the pre-transplant process. Your evaluation is complete pendin. Abdominal ultrasound. 2. 6 minute walk test. 3. Cardiology evaluation. Additionally, your ripsaw operator will recommend testing to screen for coronary artery disease. This will be scheduled for you after your cardiology visit. 4. Your coordinator will be requesting record from your last dental visit, colonoscopy and EGD. 5. Please work to complete social work recommendations. Your social media manager will be contacting you to follow up on your progress. 6. You have also been referred for a kidney transplant. An appointment will be scheduled for you sari evaluated in the kidney transplant clinic after you have satisfied requirements dictated by [employer] company. Once your testing is complete, we [...] ___ Other Name MRN * Christin Elizabeth, IT INTEGRATION ARCHITECT-CASINO GAMING WORKER - 10/19/2018 9:00 AM EST Formatting of this note may be different from the original. History of Present Illness: Chief Complaint Patient presents with Follow-up Cirrhosis George Styles is a 48 y.o. male who presents to the [facility] today regarding his diagnosis/chief complaint(s) of Cirrhosis secondary to ETOH, with ESRD follows with Dr. Orr. Currently undergoing evaluation for liver/kidney transplant. Has been seen in transplant clinic for eval. Still undergoing pre testing. Diagnosed in April 2018. Last drink was immediately prior to hospital admission in [place] for ACLF. Hospital course notable for ARF [...] (human immunodeficiency virus infection); Hyperlipidemia; Hyperthyroidism; Hypothyroidism; MO (myocardial infarction); Migraine; DARLENE (obstructive sleep apnea); [...] kidney transplant evaluation. Pt was AOx3. Transplant Sheet Metal Roofer role/function was explained and reviewed. The patient [...] and resources were offered. Pt identifies with G[employer]STICISM anabaptist. Pt confirms being a [place] Citizen. Pt.'s primary language is Anguillan. Pt confirms the ability to read,write, and understand [place]an. Pt denies potential donors. Donor cards and [...] has valid license, does not regularly drive ([facility] recommends that he not to drive). [...] related disease etoh cirrohosis April dx in [facility] for thirty days. Pt reports learning that [...] as well as referred him to pre marketing content coordinator. Pt and support demonstrated moderate understanding [...] Patient's brother David is a self employed parts classifier. Additional support includes his other brother Tyshawn and his Mary live fifteen minutes away. Of note Mary is a ripening room hand for a [employer] is available to assist partnership development manager. He confirms being comfortable asking for help. [...] in 2010, he was employed by the [employer]. He has access to SSDI payment (SSDI starts in November) in regards to financial means pre/ post-transplant. Pt confirms (meeting bills currently, ) being able to meet daily needs. Patient's brother asking for additional information on community resources, food stamps and [place]ap. Refer him to pt.'s dialysis center and the [facility]. Hereports access to Medicaid. Pt. denies history. [...] court ordered treatment after a DUI charge [facility] in [place], court ordered treatment in 2001 and in [...] by patient from his primary medical provider- CASINO GAMING WORKER patient was noted as attending an alcohol [...] new visit Date of service: 10/12/2018 -Referring dev technical mgr for today's consult: -Primary Care Provider: Zuly Bruno CC: Chief Complaint Patient presents with Liver Recipient Evaluation History of Present Illness George Styles is a 48 y.o. male who presents to the [facility] liver transplant surgery clinic today for evaluation [...] processes progressing rapidly Unknown * Elisa Tiwari, WATER METER INSTALLER - 10/12/2018 10:00 AM EST Timed up and go 9.9 seconds Suction Plate Roller Hand Left 52.8 pounds Right 44.9 pounds Waist circ 38.5 inches * Sophie Cary, SAMI - 10/12/2018 10:00 AM EST Formatting of this note may be different from the original. Patient George Styles ([id number]), accompanied by his brother, was seen on [...] any further questions. Sophie DON, RN Liver Board Certified Arts Therapist Etiology: ETOH HCC: No ETOH: Yes Last [...] Yovani Orr MD [address] [address] Status Reason Specialty Diagnoses / Procedures Referred By Contact Referred To Contact New Request Diagnoses Cirrhosis of liver with ascites, unspecified hepatic cirrhosis type Procedures US ABDOMEN RUQ/LIVER/GB Yovani Orr MD [address] [address] Specialty Diagnoses / Procedures Referred By Contac t Referred To Contact Diagnoses FAYE (acute kidney injury) Procedures CT ABDOMEN/PELVIS WITHOUT CONTRAST CHG CT SCAN,ABDOMENT AND PELVIS,W/O CONTRAST Central Scheduling [address] [place] [phone] Referral ID Status Reason Start Date Expiration Date V isits Requested Visits Authorized [id number] Pending Review 05/16/2022 06/10/2023 1 1 Specialty Diagnoses / Procedures Referred By Contac t Referred To Contact Diagnoses Other hydronephrosis Procedures [facility] Ryan Yepez MD [address] [facility] [address] [place] [address] Referral ID Status Reason Start Date Expiration Date V isits Requested Visits Authorized [id number] New Request 07/07/2022 08/01/2023 1 1 Specialty Diagnoses / Procedures Referred By Contac t Referred To Contact Procedures DIRECT ADMIT REQUEST Steve Latham MBBS [address] [place] [address] Referral ID Status Reason Start Date Expiration Date V isits Requested Visits Authorized [id number] New Request 08/28/2023 09/21/2024 1 1 Advance Directives No Advanced Directives Records FoundDocuments on File Type Date Recorded Patient Claim Specialist Expl anation Advance Directives and Living Will Power of Truck Repair Supervisor Latest Code Status on File Code Status [...] Yovani Orr MD [address] [address] Status Reason Specialty Diagnoses / Procedures Referre d By Contact Referred To Contact Denied Diagnoses Alcoholic cirrhosis, unspecified whether ascites present Pre-transplant evaluation for liver transplant Procedures MRI ABDOMEN WITH CONTRAST MI MRI, ABDOMEN W/CONTRAST Yovani Orr MD [address] [address] Reason Comments Liver Recipient Evaluation Status Reason Specialty Diagnoses / Procedures Referred By Contact Referred To Contact New Request Transplant / Transplant Surgery Procedures PRE NEW PATIENT Yovani Orr MD [address] [address] Alfredito Restrepo MD [address] [place] [address] Reason Comments Reschedule Reason Comments Outside Medical Records Request Reason Comments Social Work Follow-up Reason Comments Kidney Stone Specialty Diagnoses / Procedures Referred By Contac t Referred To Contact Diagnoses Obstructing kidney stone, s/p kidney transplant 2019 Daya Saldana MD [address] [place] [address] [facility] [address] [place] [address] Referral ID Status Reason Start Date Expiration Date Visits Re quested Visits Authorized [id number] 1 1 Reason Comments Follow-up Reason Comments Kidney Recipient Follow-up Liver Recipient Follow-up Reason Comments Consult Reason Comments New Patient Hospital follow up Specialty Diagnoses / Procedures Referred By Contac t Referred To Contact Urology Diagnoses hosp fu with [address] prior Procedures NEW TO DOC/RET PATIENT Zuly Bruno CNP [address] [place] [address] Ryan Yepez MD [address] [facility] [address] [place] [address] Referral ID Status Reason Start Date Expiration Date Visits Re quested Visits Authorized [id number] Closed 06/27/2022 07/22/2023 1 1 Specialty Diagnoses / Procedures Referred By Contac t Referred To Contact Diagnoses FAYE (acute kidney injury) Procedures CT ABDOMEN/PELVIS WITHOUT CONTRAST CHG CT SCAN,ABDOMENT AND PELVIS,W/O CONTRAST Central Scheduling [address] [place] [phone] Referral ID Status Reason Start Date Expiration Date V isits Requested Visits Authorized [id number] Pending Review 05/16/2022 06/10/2023 1 1 Reason Comments Follow-up Specialty Diagnoses / Procedures Referred By Contac t Referred To Contact Urology Diagnoses 1 week fu post NT clamp Procedures RETURN PATIENT Zuly Bruno CNP [address] [place] [address] Ryan Yepez MD [address] [facility] [address] [place] [address] Referral ID Status Reason Start Date Expiration Date Visits Requested Visits Authorized [id number] Authorized - 07/07/2022 08/01/2023 2 2 Specialty Diagnoses / Procedures Referred By Deni edwards Referred To Contact Diagnoses Other hydronephrosis Procedures [facility] Ryan Yepez MD [address] [facility] [address] [place] [address] Referral ID Status Reason Start Date Expiration Date V isits Requested Visits Authorized [id number] New Request 07/07/2022 08/01/2023 1 1 Specialty Diagnoses / Procedures Referred By Deni edwards Referred To Contact Urology Diagnoses 1 week fu post NT clamp Procedures RETURN PATIENT Zuly Bruno, CASINO GAMING WORKER [address] [place] [address] Ryan Yepez MD [address] [facility] [address] [place] [address] Referral ID Status Reason Start Date Expiration Date Visits Re quested Visits Authorized [id number] Closed 07/07/2022 08/01/2023 2 2 Reason Comments Liver Recipient Follow-up Reason Comments Kidney Recipient Follow-up Reason Comments Kidney Recipient Follow-up Specialty Diagnoses / Procedures Referred By Deni edwards Referred To Contact Diagnoses Kidney replaced by transplant Steve Latham MBBS [address] [place] [address] [facility] [address] [place] [address] Referral ID Status Reason Start Date Expiration Date Visits Re quested Visits Authorized [id number] 1 1 (unrecognized sect ion and content) No Status Records FoundNo Status Records FoundNo Status Records FoundNo Status Records FoundNo Status Records FoundNo Status Records Found INFORMATION SOURCE (unrecogn ized section and content) DATE CREATED AUTHOR 01/07/2020 Karlie ariza DATE CREATED AUTHOR AUTHOR'S ORGANIZ ATION 01/27/2021 [facility] DATE CREATED AUTHOR AUTHOR'S ORGANIZ ATION 04/13/2023 [facility] DATE CREATED AUTHOR AUTHOR'S ORGANIZ ATION 05/11/2023 [facility] DATE CREATED AUTHOR AUTHOR'S ORGANIZ ATION 10/26/2023 [facility] DATE CREATED AUTHOR AUTHOR'S ORGANIZ ATION 11/05/2023 [facility] dicid Specialists EPIC Care Teams (unrecognized sec tion and content) Hotel Maid Relationship Specialty Start Date End Date Zuly Bruno CNP PCP - General 07/19/18 [place], [facility] [address] [facility] [address] [place] [address] Pharmacist Pharmacist 05/16/20 Angel Carpio [facility],PharmD Pharmacist Pharmacist 05/16/20 Te Leigh [facility],PharmD Pharmacist Pharmacist 01/09/21 Hotel Maid Relationship Specialty Start Date End Date Zuly Bruno CNP PCP - General 07/19/18 [place], [facility] [address] [facility] [address] [place] [address] Pharmacist Pharmacist 05/16/20 Angel Carpio [facility],PharmD Pharmacist Pharmacist 05/16/20 Te Leigh [facility],PharmD Pharmacist Pharmacist 01/09/21 Hotel Maid Relationship Specialty Start Date End Date Zuly Bruno CNP PCP - General 07/19/18 Hotel Maid Relationship Specialty Start Date End Date Zuly Bruno CNP PCP - General 07/19/18 Hotel Maid Relationship Specialty Start Date End Date Zuly Bruno CNP PCP - General 07/19/18 Hotel Maid Relationship Specialty Start Date End Date Zuly Bruno CNP PCP - General 07/19/18 Hotel Maid Relationship Specialty Start Date End Date Zuly Bruno CNP PCP - General 07/19/18 Hotel Maid Relationship Specialty Start Date End Date Zuly Bruno CNP PCP - General 07/19/18 Hotel Maid Relationship Specialty Start Date End Date Zuly Bruno CNP PCP - General 07/19/18 Hotel Maid Relationship Specialty Start Date End Date Zuly Bruno CNP PCP - General 07/19/18 Hotel Maid Relationship Specialty Start Date End Date Zuly Bruno CNP PCP - General 07/19/18 Hotel Maid Relationship Specialty Start Date End Date Zuly Bruno CNP PCP - General 07/19/18 Hotel Maid Relationship Specialty Start Date End Date Zuly Bruno CNP PCP - General 07/19/18 Hotel Maid Relationship Specialty Start Date End Date Zuly Bruno CNP PCP - General 07/19/18 Hotel Maid Relationship Specialty Start Date End Date LexielydialatishaZuly tipton CNP PCP - General 07/19/18 Hotel Maid Relationship Specialty Start Date End Date LexielydialatishaZuly tipton ROB PCP - General 07/19/18 Hotel Maid Relationship Specialty Start Date End Date Zuly Bruno CNP PCP - General 07/19/18 Evan White DO [address] [place], [place] [id number] Infectious Disease Infectious Disease 09/09/23 Hotel Maid Relationship Specialty Start Date End Date Zuly BrunoROB PCP - General 07/19/18 Evan White DO [address] [place], [place] [id number] Infectious Disease Infectious Disease 09/09/23 Hotel Maid Relationship Specialty Start Date End Date Lexielydialatishaomer ZulyROB PCP - General 07/19/18 Evan White DO [address] [place], [place] [id number] Infectious Disease Infectious Disease 09/09/23 Scheduled Active [...] Provider: Josey Braun RN)[phone] (Paused - Provider: Craolyn Isaac RN)[phone] (Restarted - Provider: Carolyn Isaac [...] BE BASED ON THE PRIMARY CLINICAL RECORDS. [employer] provides no warranty or guarantee of the accuracy or completeness of information in this document.
[2023-12-11 07:10] LABS: Basophils Percent Auto 0.4 % (0.2-2.0); Eosinophils Absolute Auto 0.1 10^3/uL (0.0-0.7); Eosinophils Percent Auto 2.4 % (0.9-7.0); Hematocrit 43.2 % (42.0-54.0); Lymphocytes Absolute Auto 1.5 10^3/uL (1.2-3.8); Lymphocytes Percent Auto 34.3 % (20.5-60.0); Mean Corpuscular HGB Conc 32.4 g/dL (29.9-35.2); Mean Corpuscular Hemoglobin 28.1 pg (25.9-34.0); Mean Corpuscular Volume 86.6 fL (80.0-94.0); Mean Platelet Volume 10.3 fL (9.5-13.5); Monocytes Absolute Auto 0.5 10^3/uL (0.3-0.8); Monocytes Percent Auto 10.2 % (1.7-12.0); Neutrophils Absolute Auto 2.4 10^3/uL (1.4-6.5); Neutrophils Percent Auto 52.7 % (43.0-75.0); Platelet Count 189 10^3/uL (150-450); Red Blood Count 4.99 10^6/uL (4.70-6.10); Red Cell Distribution Width 13.9 % (11.0-15.0); White Blood Count 4.5 10^3/uL (4.0-11.0)
[2023-12-11 07:35] LABS: Creatinine Urine Random 70.91 mg/dL (20.00-300.00); Protein Creatinine Ratio Urine 0.31; Total Protein Urine Random 22.1 mg/dL (<=11.9)
[2023-12-11 07:58] LABS: Alanine Aminotransferase 31 U/L (16-63); Albumin Level 3.8 g/dL (3.4-5.0); Alkaline Phosphatase 101 U/L (46-116); Anion Gap 15.9; Aspartate Amino Transferase 23 U/L (15-37); BUN Creatinine Ratio 15.1; Bilirubin Direct 0.4 mg/dL (0.0-0.2); Bilirubin Total 2.1 mg/dL (0.2-1.0); Calcium 9.2 mg/dL (8.5-10.1); Carbon Dioxide 24.2 mmol/L (21.0-32.0); Chloride 106 mmol/L (98-107); Estimated GFR (African America >60 (>=60); Estimated GFR (Non-African Ame >60 (>=60); Gamma Glutamyl Transpeptidase 17 U/L (15-85); Glucose 105 mg/dL (74-106); Magnesium 1.7 mg/dL (1.8-2.4); Potassium 4.1 mmol/L (3.5-5.1); Sodium 142 mmol/L (136-145)
[2023-12-14 14:10] LABS: Tacrolimus (FK506), Blood 4.9 ng/mL (2.0-20.0)
== END 2023-12-11 06:41 | disposition home or self-care (01) ==
LOC: LAB 06:42
PROVIDERS: PCP Nurse Practitioner
DX: R79.9 Abnormal finding of blood chemistry, unspecified (principal); Z94.0 Kidney transplant status; Z48.298 Encounter for aftercare following other organ transplant; D84.9 Immunodeficiency, unspecified; Z94.4 Liver transplant status; B39.9 Histoplasmosis, unspecified
CPT/HCPCS: 36415; 80048; 80189; 80197; 82042; 82247; 82248; 82570; 82977; 83735; 84075; 84100; 84156; 84450; 84460; 85025

== ENCOUNTER 2023-12-17 06:37 | Outpatient (OUT) | payer MEDICARE, MEDICAID, SELFPAY ==
--- OUTSIDE RECORDS SUMMARY | 2023-12-17 06:44 | XMS_ITS | CCD ---
Author Name Unknown Address [address] [place] [address] Organization [facility] Care Team Providers Care Metallurgical [facility] Assistant Name Role Phone Kiana Zuly Unavailable Unavailable Primary Care Provider Unavailabl e CAREY ROB Referring Unavailable KASMANI, ROB Referring Unavailable KASMANI, ROB Referring Unavailable RIST, RENA Referring Unavailable JOHARTANA S Referring Unavailable RIST, RENA Referring Unavailable RIST, RENA Referring Unavailable RIST, RENA Referring Unavailable RIST, RENA Referring Unavailable PEPE CASE Attending Unavailable PEPE CASE Admitting Unavailable AICHHOLZ, ZULY Referring Unavailable AICHHOLZ, ZULY Primary Care Unavailable Aichholz [facility], [facility] Primary Care Provider Miguel HComfort Unavailable Shirin RPh,PharmD, Angel Unavailable Unavailab makayla Leigh RP,PharmD, Te Unavailable Unavai lable Aicholz [facility] Primary Care Provider MIGUEL CARDONA Attending Unavailable MISC, DR BURCH Admitting Unavailable MISC, DR BURCH Consulting Unavailable AICHHOLZ, BALL MILL OPERATOR ZULY Primary Care Unavailable MISC, DR BURCH Attending Unavailable MISC, DR BURCH Admitting Unavailable MISC, DR BURCH Consulting Unavailable AICHHOLZ, BALL MILL OPERATOR ZULY Primary Care Unavailable MISC, DR BURCH Attending Unavailable ARCELIA PIZARRO Consulting Unavailable KE BURNHAM Attending Unavailable KE BURNHAM Admitting Unavailable DR MÓNICA JIMENEZ Consulting Unavailable AICHHOLZ, BALL MILL OPERATOR ZULY Primary Care Unavailable KE BURNHAM Consulting Unavailable MISC, DR DOCTOR Consulting Unavailable MISC, DR DOCTOR Attending Unavailable AICHHOLZ, [facility] ZULY Primary Care Unavailable MISC, DR DOCTOR Admitting Unavailable MISC, DR DOCTOR Consulting Unavailable MISC, DR DOCTOR Attending Unavailable AICHHOLZ, [facility] ZULY Primary Care Unavailable MISC, DOCTOR Admitting Unavailable MISC, DR DOCTOR Consulting Unavailable AICHHOLZ, [facility] ZULY Primary Care Unavailable MISC, DR DOCTOR Admitting Unavailable MISC, DR DOCTOR Attending Unavailable MELINDA, DR GEORGE Munoz Consulting Unavailable MELINDA, DR GEORGE Munoz Attending Unavailable AICHHOLZ, [facility] ZULY Primary Care Unavailable MELINDA, DR GEORGE Munoz Admitting Unavailable NAUN ., KE Consulting Unavailable MIRANDA, LYNDSAY Consulting Unavailable MELINDA, DR GEORGE Munoz Consulting Unavailable NAUN ., KE Attending Unavailable NAUN ., KE Admitting Unavailable AICHHOLZ, [facility] ZULY Primary Care Unavailable NAUN ., KE Consulting Unavailable GIAN HERRING Consulting Unavailable AICHHOLZ, BALL MILL OPERATOR ZULY Consulting Unavailable AICHOL, BALL MILL OPERATOR ZULY Attending Unavailable AICHHOL, BALL MILL OPERATOR ZULY Admitting Unavailable AICHHOL, [facility] ZULY Primary Care Unavailable MISC, DR Consulting Unavailable MISC, DOCTOR Admitting Unavailable MISC, DR DOCTOR Attending Unavailable AICHHOLZ, [facility] ZULY Primary Care Unavailable MISC, DR Consulting Unavailable MISC, DR DOCTOR Attending Unavailable MISC, DR DOCTOR Admitting Unavailable AICHHOLZ, [facility] ZULY Primary Care Unavailable MISC, DR BURCH Admitting Unavailable MISC, DR DOCTOR Consulting Unavailable MISC, DR DOCTOR Attending Unavailable AICHHOL, [facility] ZULY Primary Care Unavailable MISC, DR DOCTOR Admitting Unavailable MISC, DR DOCTOR Consulting Unavailable AICHHOL, [facility] ZULY Primary Care Unavailable MISC, DR DOCTOR Attending Unavailable MISC, DR DOCTOR Admitting Unavailable MISC, DR DOCTOR Consulting Unavailable AICHHOLZ, [facility] ZULY Primary Care Unavailable MISC, DR DOCTOR Attending Unavailable AICHOL, BALL MILL OPERATOR ZULY Consulting Unavailable AICHOL, BALL MILL OPERATOR ZULY Attending Unavailable AICHOL, [facility] ZULY Admitting Unavailable AICHOL, [facility] ZULY Primary Care Unavailable DR MÓNICA JIMENEZ Consulting Unavailable [facility] Primary Care Provider Cindy WHIPPLE Evan A Unavailable [facility] Primary Care Provider Evan White DO Unavailable AICHHOLZ, ZULY Primary Care Unavailable AICHHOLZ, ZULY Primary Care Unavailable AICHHOLZ, ZULY Primary Care Unavailable STEVE LATHAM Attending Unavailable AICHHOLZ, ZULY Primary Care Unavailable STEVE LATHAM Referring Unavailable AICHHOLZ, ZULY Primary Care Unavailable EVAN WHITE Referring UnavailHAKEEM Ponce Attending Unavailable AICHHOLZ, ZULY Primary Care Unavailable [...] Propensity to adverse reactions (disorder) 8 [facility] Repository (20 sources) Shellfish-Derive d Products Propensity to adverse reactions to drug 9 [facility] (1 source) Shellfish Drug allergy (disorder) [facility] Repository Medications Current Medications Medication [...] 1 capsule by mouth once daily b xkhetkf-O-iorqo acid (NEPHROCAPS) 1 MG capsule Take 1 [...] itraconazole Fax results to: Dr. White - [phone] Transplant Neph - [phone] Each 0 09/10/2023 Active Drug or [...] ankle pain. 0 06/12/2020 06/12/2023 Discontinued lactulose 62263 mg powder for oral solution (19 sources) [...] Start: 03-10-2023 End: 09-01-2023 Start: 05-15-2022 End: 06-21-2022 take 1 tablet by mouth every twelve hours 360 mg, Oral, EVERY 12 HOURS NON-STANDARD, First dose on Marta 05/15/22 at 2245, Until Discontinued Give on [...] Start: 08-26-2023 take 1 tablet by magy th twice daily Sulfamethoxazole-trimethoprim 800-160 MG per tablet [...] needed. Start: 08-20-[address] [facility] every twelve hours Tacrolimus (PROGRAF) 0.5 [...] needed. Start: 03-14-20[address] [facility] every twelve hours tacrolimus (PROGRAF) 0.5 [...] Start: 06-19-2022 take 1 capsule by mo [facility] once daily Tamsulosin HCl 0.4 MG capsule Take 1 capsule by mouth daily. 30 capsule 11 06/19/2022 Active Start: 05-23-2022 take 1 capsule by mo [facility] once daily Tamsulosin HCl 0.4 [...] Discontinued Start: 01-15-20[address] [facility] once daily Allopurinol 100 MG tablet Indications: Abnormal blood chemistry Take 2 tablets by mouth daily. 180 tablet 3 01/15/2023 Active Start: 05-17-2022 End: 05-20-2022 allopurinol (ZYLOPRIM) table t 100 mg Start: 05-16-2022 End: 05-16-2022 take 200 mg by mouth once daily 200 mg, Oral, DAILY, F irst dose on Thu05/16/22 at 0900, Until Discontinued Start: 12-30-2021 take 2 tablets by mo [facility] once daily allopurinol 100 MG tablet Indications: Abnormal blood chemistry take 2 tablets by mouth once daily 180 tablet 3 12/30/2021 Active Start: 01-28-2021 take [address] [facility] once daily allopurinol 100 MG tablet [...] on Thu05/15/22 at 2215, Until Discontinued Start: 05-23-2020 End: [...] Start: 01-05-2023 take 1 tablet by magy twice daily Losartan 50 MG tablet take [...] (ROXICODONE) tablet 10 mg polyethylene glycol 3350 52896 mg powder for oral solution (20 sources) [...] ( K-PHOS NEUTRAL) tablet 1,000 mg sennosides, fci 8.6 mg oral tablet (1 source) Start: [...] Coronary arteriosclerosis; 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: [Atherosclerotic heart disease of [place] coronary artery without angina pectoris] Onset: 04-13-2023 [...] sources) Taking high risk medication; 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: [Other [facility] (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] Episodic Other aftercare (3 sources) Other ostomy care nurse (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; 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: [OTH PARACHUTE OFFICER 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 THERAPY] Onset: 07-06-2022 Episodic Other [...] 05-10-2020 05-10-2020 Episodic Other aftercare (1 source) retirement (current) use of aspirin; 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: [PARACHUTE OFFICER CURRENT USE OF ASPIRIN] Onset: 06-20-2022 Episodic [...] Anion gap [Moles/Vol] 13 mmol/L Normal 7-17 [facility] Comment on above: Performed By: #### C HM7, MGO ####[facility] (DEFAULT)[address] [facility] [place] [place] [address] Chloride [Moles/Vol] 111 mmol/L High 98-108 [facility] Comment on above: Performed By: #### C HM7, MGO ####[facility] (DEFAULT)[address] [place] [address] CO2 [Moles/Vol] 20 mmol/L Low 21-31 [facility] Comment on above: Performed By: #### C HM7, MGO ####[facility] (DEFAULT)[address] [place] [address] Creatinine [Mass/Vol] 1.13 mg/dL Normal 0.70-1.30 [facility] Comment on above: Performed By: #### Chinedu HM7, MGO ####[facility] (DEFAULT)[address] [place] [address] GFR/1.73 sq M.predicted among non-blacks MDRD (S/P/Bld) [Vol rate/Area] 78 mL/min/{1.73_m2} Normal >=60 [facility] Comment on above: Result Comment: Repo rted eGFR is based on the CKD-EPI 2020 equation using creatinine, age, and sex. Performed By: #### C HM7, MGO ####[facility] (DEFAULT)[address] [facility] [place] [address] Glucose [Mass/Vol] 109 mg/dL High 70-99 [facility] Comment on above: Performed By: #### C HM7, MGO ####[facility] (DEFAULT)[address] [place] [address] Osmolality [Osmolality] 295 mosm/kg Normal 278-305 [facility] Comment on above: Performed By: #### Chinedu HM7, MGO ####[facility] (DEFAULT)[address] [place] [address] Potassium [Moles/Vol] 4.3 mmol/L Normal 3.5-5.0 [facility] Comment on above: Performed By: #### C HM7, MGO ####[facility] (DEFAULT)[address] [facility] [place] [place] [address] Sodium [Moles/Vol] 140 mmol/L Normal 135-145 [facility] Comment on above: Performed By: #### Chinedu HM7, MGO ####[facility] (DEFAULT)[address] [facility] [place] [place] [address] Urea nitrogen [Mass/Vol] 16 mg/dL Normal 7-25 [facility] Comment on above: Performed By: #### Chinedu HM7, MGO ####[facility] (DEFAULT)[address] [facility] [place] [place] [address] Urea nitrogen/Creatinine [Mass ratio] 14 mg/mg Normal [facility] Comment on above: Performed By: #### Chinedu HM7, MGO ####[facility] (DEFAULT)[address] [place] [address] Anion gap [Moles/Vol] 13 mmol/L 7 - 17 mmol/L [facility] Chloride [Moles/Vol] 111 mmol/L High 98 - 10 8 mmol/L [facility] CO2 [Moles/Vol] 20 mmol/L Low 21 - 31 mmol/L [facility] Creatinine [Mass/Vol] 1.13 mg/dL 0.70 - 1.30 mg/dL [facility] eGFR, CKD-EPI, [facility] 78 [facility] Glucose [Mass/Vol] 109 mg/dL High 70 - 99 mg/dL [facility] Interpretation and review of laboratory results Abnormal [facility] Osmolality Calc [Osmolality] 295 [facility] Potassium [Moles/Vol] 4.3 mmol/L 3.5 - 5.0 mmol/L [facility] Sodium [Moles/Vol] 140 mmol/L 135 - 145 mmol/L [facility] Urea nitrogen [Mass/Vol] 16 mg/dL 7 - 25 mg/dL [facility] Urea nitrogen/Creatinine [Mass ratio] 14 mg/mg [facility] GLUCOSE POCon 09-11-2023 Glucose [Mass/Vol] 108 mg/dL High 70 - 99 mg/dL [facility] Interpretation and review of laboratory results Abnormal [facility] POC Sample Type CAPBL [facility] Legionella sp identified Org specific cx Nom (Unsp spec)on 09-11-2023 Bacteria identified Cx Nom (Unsp spec) NO GROWTH DAY 7 OF 7 [facility] MAGNESIUMon 09-11-2023 Magnesium [Mass/Vol] 1.6 mg/dL Normal 1.6-2.6 [facility] Comment on above: Performed By: #### C 7, MGO ####[facility] (DEFAULT)[address] [place] [address] Interpretation and review of laboratory results Normal [facility] Magnesium [Mass/Vol] 1.6 mg/dL 1.6 - 2 .6 mg/dL [facility] No Panel Informationon 09-11 [facility] TACROLIMUS LEVEL, TROUGH ([place] E DRUG LEVEL)on 09-11-2023 Interpretation and review of laboratory results Normal [facility] Tacrolimus (Bld) [Mass/Vol] 11.5 ng/mL [facility] Tacrolimus, Trough 11.5 ng/mL Normal Bone Susana ow Transplant: 4.0-12.0, Therapeutic: 5.0-15.0 [facility] Comment on above: Order Comment: Pleas e draw at specified interval PRIOR to dose. Do not hold dose to wait for level. Specimens batched twice per day, (M-F) and once per day weekendsMethod performed is a chemiluminescent microparticle immunoasssay on the [employer] Mix[employer] Supervisor i2000.The range is based on experience at [facility] and users should be aware that target concentrations vary widely depending on concomitant therapy, time post-transplant, and desired degree of immunosuppression. Performed By: #### T ACRO ####[facility] (DEFAULT)[address] [place] [address] CBC,PLATELETSon 09-10-2023 Hematocrit (Bld) [Volume fraction] 40.0 % Normal 39.6-48.8 [facility] Comment on above: Performed By: #### H EMOGC ####[facility] (DEFAULT)[address] [facility] [place] [address] Hemoglobin (Bld) [Mass/Vol] 12.7 g/dL Low 13.4-16.8 [facility] Comment on above: Performed By: #### H EMOGC ####[facility] (DEFAULT)[address] [facility] [place] [place] [address] MCV (RBC) [Entitic vol] 86.0 fL Normal 79.0-94.5 [facility] Comment on above: Performed By: #### H EMOGC ####[facility] (DEFAULT)[address] [facility] [place] [place] [address] Mean Cell Hgb 27.3 pg Normal 26.1-33.3 [facility] Comment on above: Performed By: #### H EMOGC ####[facility] (DEFAULT)[address] [facility] [place] [address] Mean Cell Hgb Conc 31.8 g/dL Low 31.9-36.5 [facility] Comment on above: Performed By: #### H EMOGC ####[facility] (DEFAULT)[address] [facility] [place] [address] Platelet mean volume (Bld) [Entitic vol] 9.5 fL Normal 8.7-12.3 [facility] Comment on above: Performed By: #### H EMO ####[facility] (DEFAULT)[address] [facility] [place] [place] [address] Platelets (Bld) [#/Vol] 225 10*3/uL Normal 146-337 [facility] Comment on above: Performed By: #### H EMO ####[facility] (DEFAULT)[address] [place] [address] RBC (Bld) [#/Vol] 4.65 10*6/uL Normal 4.38-5.83 [facility] Comment on above: Performed By: #### H EMO ####[facility] (DEFAULT)[address] [place] [address] RBC Distribution 13.9 % Normal 10.9-14.3 [facility] Comment on above: Performed By: #### H EMO ####[facility] (DEFAULT)[address] [place] [address] WBC (Bld) [#/Vol] 6.52 10*3/uL Normal 3.73-10.10 [facility] Comment on above: Performed By: #### H EMO ####[facility] (DEFAULT)[address] [place] [address] Erythrocyte distribution width (RBC) [Ratio] 13.9 % 10.9 - 14.3 % [facility] Hematocrit (Bld) [Volume fraction] 40.0 % 39.6 - 48.8 % [facility] Hemoglobin (Bld) [Mass/Vol] 12.7 g/dL Low 13.4 - 16.8 g/dL [facility] Interpretation and review of laboratory results Abnormal [facility] MCH (RBC) [Entitic mass] 27.3 pg 26.1 - 33.3 pg [facility] MCHC (RBC) [Mass/Vol] 31.8 g/dL Low 31.9 - 36.5 g/dL [facility] MCV (RBC) [Entitic vol] 86.0 fL 79.0 - 94.5 fL [facility] Platelet mean volume (Bld) [Entitic vol] 9.5 fL 8.7 - 12.3 fL [facility] Platelets (Bld) [#/Vol] 225 10*3/uL 146 - 337 K/uL [facility] RBC (Bld) [#/Vol] 4.65 10*6/uL [facility] WBC (Bld) [#/Vol] 6.52 10*3/uL 3.73 - 10. 10 K/uL [facility] CHEM 7 (LYTES,BUN,CREA,GLUC) on 09-10-2023 Anion gap [Moles/Vol] 13 mmol/L Normal 7-17 [facility] Comment on above: Performed By: #### T ACRO #### [facility] (DEFAULT) [address] [address] Chloride [Moles/Vol] 111 mmol/L High 98-108 [facility] Comment on above: Performed By: #### T ACRO #### [facility] (DEFAULT) [address] [address] CO2 [Moles/Vol] 20 mmol/L Low 21-31 [facility] Comment on above: Performed By: #### T ACRO #### [facility] (DEFAULT) [address] [address] Creatinine [Mass/Vol] 1.27 mg/dL Normal 0.70-1.30 [facility] Comment on above: Performed By: #### T ACRO #### [facility] (DEFAULT) [address] [address] GFR/1.73 sq M.predicted among non-blacks MDRD (S/P/Bld) [Vol rate/Area] 68 mL/min/{1.73_m2} Normal >=60 [facility] Comment on above: Result Comment: Repo rted eGFR is based on the CKD-EPI 2020 equation using creatinine, age, and sex. Performed By: #### T ACRO #### [facility] (DEFAULT) [address] [place] [address] Glucose [Mass/Vol] 100 mg/dL High 70-99 [facility] Comment on above: Performed By: #### T ACRO #### [facility] (DEFAULT) [address] [place] [address] Osmolality [Osmolality] 293 mosm/kg Normal 278-305 [facility] Comment on above: Performed By: #### T ACRO #### [facility] (DEFAULT) [address] [place] [address] Potassium [Moles/Vol] 4.4 mmol/L Normal 3.5-5.0 [facility] Comment on above: Performed By: #### T ACRO #### [facility] (DEFAULT) [address] [place] [address] Sodium [Moles/Vol] 140 mmol/L Normal 135-145 [facility] Comment on above: Performed By: #### T ACRO #### [facility] (DEFAULT) [address] [place] [address] Urea nitrogen [Mass/Vol] 12 mg/dL Normal 7-25 [facility] Comment on above: Performed By: #### T ACRO #### [facility] (DEFAULT) [address] [place] [address] Urea nitrogen/Creatinine [Mass ratio] 9 mg/mg Normal [facility] Comment on above: Performed By: #### T ACRO #### [facility] (DEFAULT) [address] [place] [address] Anion gap [Moles/Vol] 13 mmol/L 7 - 17 mmol/L [facility] Chloride [Moles/Vol] 111 mmol/L High 98 - 10 8 mmol/L [facility] CO2 [Moles/Vol] 20 mmol/L Low 21 - 31 mmol/L [facility] Creatinine [Mass/Vol] 1.27 mg/dL 0.70 - 1.30 mg/dL [facility] eGFR, CKD-EPI, Male 69 - PINF [facility] Glucose [Mass/Vol] 100 mg/dL High 70 - 99 mg/dL [facility] Osmolality Calc [Osmolality] 293 [facility] Potassium [Moles/Vol] 4.4 mmol/L 3.5 - 5.0 mmol/L [facility] Sodium [Moles/Vol] 140 mmol/L 135 - 145 mmol/L [facility] Urea nitrogen [Mass/Vol] 12 mg/dL 7 - 25 mg/dL [facility] Urea nitrogen/Creatinine [Mass ratio] 9 mg/mg [facility] HEPATIC FUNCTION PANELon Albumin [Mass/Vol] 3.3 g/dL Low 3.5-5.0 [facility] Comment on above: Performed By: #### T ACRO #### [facility] (DEFAULT) [address] [place] [address] ALP [Catalytic activity/Vol] 143 U/L High 32-126 [facility] Comment on above: Performed By: #### T ACRO #### [facility] (DEFAULT) [address] [place] [address] ALT [Catalytic activity/Vol] 28 U/L Normal 10-52 [facility] Comment on above: Performed By: #### T ACRO #### [facility] (DEFAULT) [address] [place] [address] AST [Catalytic activity/Vol] 29 U/L Normal 10-39 [facility] Comment on above: Performed By: #### T ACRO #### [facility] (DEFAULT) [address] [place] [address] Bilirubin [Mass/Vol] 0.9 mg/dL Normal <1.5 [facility] Comment on above: Performed By: #### T ACRO #### [facility] (DEFAULT) [address] [place] [address] Bilirubin.indirect [Mass/Vol] 0.2 mg/dL Normal <0.3 [facility] Comment on above: Performed By: #### T ACRO #### [facility] (DEFAULT) [address] [place] [address] Protein [Mass/Vol] 6.8 g/dL Normal 6.4-8.3 [facility] Comment on above: Performed By: #### T ACRO #### [facility] (DEFAULT) [address] [place] [address] Albumin [Mass/Vol] 3.3 g/dL Low 3.5 - 5.0 g/dL [facility] ALP [Catalytic activity/Vol] 143 U/L High 32 - 126 U/L [facility] ALT [Catalytic activity/Vol] 28 U/L 10 - 52 U/L [facility] AST [Catalytic activity/Vol] 29 U/L 10 - 39 U/L [facility] Bilirubin [Mass/Vol] 0.9 mg/dL [facility] - 1.5 mg/dL [facility] Bilirubin.direct [Mass/Vol] 0.2 mg/dL NINF - 0.3 mg/dL [facility] Protein [Mass/Vol] 6.8 g/dL 6.4 - 8.3 g/dL [facility] MAGNESIUMon 09-10-2023 Magnesium [Mass/Vol] 1.9 mg/dL Normal 1.6-2.6 [facility] Comment on above: Performed By: #### T ACRO #### [facility] (DEFAULT) [address] [place] [address] Interpretation and review of laboratory results Normal [facility] Magnesium [Mass/Vol] 1.9 mg/dL 1.6 - 2 .6 mg/dL [facility] No Panel Informationon 09-10 Interpretation and review of laboratory results Abnormal [facility] TACROLIMUS LEVEL, TROUGH ([place] E DRUG LEVEL)Ordered By: Jimy Castillo on 09-10-2023 Interpretation and review of laboratory results Normal [facility] Tacrolimus (Bld) [Mass/Vol] 11.8 ng/mL [facility] TACROLIMUS LEVEL, TROUGH ([place] E DRUG LEVEL)on 09-10-2023 Tacrolimus, Trough 11.8 ng/mL Normal Bone Susana ow Transplant: 4.0-12.0, Therapeutic: 5.0-15.0 [facility] Comment on above: Order Comment: Pleas e draw at specified interval PRIOR to dose. Do not hold dose to wait for level. Specimens batched twice per day, (M-F) and once per day weekends Method performed is a chemiluminescent microparticle immunoasssay on the [employer] Mix[employer] Supervisor i2000. The range is based on experience at [facility] and users should be aware that target concentrations vary widely depending on concomitant therapy, time post-transplant, and desired degree of immunosuppression. Performed By: #### T ACRO #### [facility] (DEFAULT) [address] [place] [address] CHEM 7 (LYTES,BUN,CREA,GLUC) on 09-09-2023 Anion gap [Moles/Vol] 14 mmol/L Normal 7-17 [facility] Comment on above: Performed By: #### C HM7, IPB, MGO ####[facility] (DEFAULT)[address] [place] [address] Chloride [Moles/Vol] 113 mmol/L High 98-108 [facility] Comment on above: Performed By: #### C HM7, IPB, MGO ####[facility] (DEFAULT)[address] [place] [address] CO2 [Moles/Vol] 18 mmol/L Low 21-31 [facility] Comment on above: Performed By: #### C HM7, IPB, MGO ####[facility] (DEFAULT)[address] [place] [address] Creatinine [Mass/Vol] 1.03 mg/dL Normal 0.70-1.30 [facility] Comment on above: Performed By: #### JO ANN GONG MGO ####[facility] (DEFAULT)[address] [facility] [place] [address] GFR/1.73 sq M.predicted among non-blacks MDRD (S/P/Bld) [Vol rate/Area] 87 mL/min/{1.73_m2} Normal >=60 [facility] Comment on above: Result Comment: Repo rted eGFR is based on the CKD-EPI 2020 equation using creatinine, age, and sex. Performed By: #### JO ANN GONG, MGO ####[facility] (DEFAULT)[address] [place] [address] Glucose [Mass/Vol] 106 mg/dL High 70-99 [facility] Comment on above: Performed By: #### JO ANN GONG, MGO ####[facility] Center (DEFAULT)[address] [place] [address] Osmolality [Osmolality] 294 mosm/kg Normal 278-305 [facility] Comment on above: Performed By: #### JO ANN GONG, MGO ####[facility] (DEFAULT)[address] [place] [address] Potassium [Moles/Vol] 4.0 mmol/L Normal 3.5-5.0 [facility] Comment on above: Performed By: #### JO ANN GONG, MGO ####[facility] (DEFAULT)[address] [facility] [place] [address] Sodium [Moles/Vol] 141 mmol/L Normal 135-145 [facility] Comment on above: Performed By: #### JO ANN GONG, MGO ####[facility] (DEFAULT)[address] [place] [address] Urea nitrogen [Mass/Vol] 10 mg/dL Normal 7-25 [facility] Comment on above: Performed By: #### JO ANN GONG MGO ####[facility] (DEFAULT)[address] [place] [address] Urea nitrogen/Creatinine [Mass ratio] 10 mg/mg Normal [facility] Comment on above: Performed By: #### JO ANN GONG MGO ####[facility] (DEFAULT)[address] [place] [address] Anion gap [Moles/Vol] 14 mmol/L 7 - 17 mmol/L [facility] Chloride [Moles/Vol] 113 mmol/L High 98 - 10 8 mmol/L [facility] CO2 [Moles/Vol] 18 mmol/L Low 21 - 31 mmol/L [facility] Creatinine [Mass/Vol] 1.03 mg/dL 0.70 - 1.30 mg/dL [facility] eGFR, CKD-EPI, Male 87 - PINF [facility] Glucose [Mass/Vol] 106 mg/dL High 70 - 99 mg/dL [facility] Interpretation and review of laboratory results Abnormal [facility] Osmolality Calc [Osmolality] 294 [facility] Potassium [Moles/Vol] 4.0 mmol/L 3.5 - 5.0 mmol/L [facility] Sodium [Moles/Vol] 141 mmol/L 135 - 145 mmol/L [facility] Urea nitrogen [Mass/Vol] 10 mg/dL 7 - 25 mg/dL [facility] Urea nitrogen/Creatinine [Mass ratio] 10 mg/mg [facility] MAGNESIUMon 09-09-2023 Magnesium [Mass/Vol] 1.6 mg/dL Normal 1.6-2.6 [facility] Comment on above: Performed By: #### JO ANN GONG, MGO ####[facility] (DEFAULT)[address] [place] [address] Magnesium [Mass/Vol] 1.6 mg/dL 1.6 - 2 .6 mg/dL [facility] No Panel Informationon 09-09 Interpretation and review of laboratory results Normal [facility] PHOSPHATE, INORGANICon 09-09 Phosphorous 3.8 mg/dL Normal 2.2-4.6 [facility] Comment on above: Performed By: #### C HM7, IPB, MGO ####[facility] (DEFAULT)[address] [place] [address] Phosphate [Mass/Vol] 3.8 mg/dL 2.2 - 4 .6 mg/dL [facility] TACROLIMUS LEVEL, TROUGH ([place] E DRUG LEVEL)on 09-09-2023 Interpretation and review of laboratory results Normal [facility] Tacrolimus (Bld) [Mass/Vol] 9.2 ng/mL [facility] Tacrolimus, Trough 9.2 ng/mL Normal Bone Susana ow Transplant: 4.0-12.0, Therapeutic: 5.0-15.0 [facility] Comment on above: Order Comment: Pleas e draw at specified interval PRIOR to dose. Do not hold dose to wait for level. Specimens batched twice per day, (M-F) and once per day weekendsMethod performed is a chemiluminescent microparticle immunoasssay on the [employer] i2000.The range is based on experience at [facility] and users should be aware that target concentrations vary widely depending on concomitant therapy, time post-transplant, and desired degree of immunosuppression. Performed By: #### H EMO #### [facility] (DEFAULT) [address] [place] [address] CBC,PLATELETSon 09-08-2023 Hematocrit (Bld) [Volume fraction] 36.1 % Low 39.6-48.8 [facility] Comment on above: Performed By: #### T ACRO #### [facility] (DEFAULT) [address] [place] [address] Hemoglobin (Bld) [Mass/Vol] 11.6 g/dL Low 13.4-16.8 [facility] Comment on above: Performed By: #### T ACRO #### [facility] (DEFAULT) [address] [place] [address] MCV (RBC) [Entitic vol] 85.1 fL Normal 79.0-94.5 [facility] Comment on above: Performed By: #### T ACRO #### [facility] (DEFAULT) [address] [place] [address] Mean Cell Hgb 27.4 pg Normal 26.1-33.3 [facility] Comment on above: Performed By: #### T ACRO #### [facility] (DEFAULT) [address] [address] Mean Cell Hgb Conc 32.1 g/dL Normal 31.9-36.5 [facility] Comment on above: Performed By: #### T ACRO #### [facility] (DEFAULT) [address] [address] Platelet mean volume (Bld) [Entitic vol] 9.5 fL Normal 8.7-12.3 [facility] Comment on above: Performed By: #### T ACRO #### [facility] (DEFAULT) [address] [address] Platelets (Bld) [#/Vol] 182 10*3/uL Normal 146-337 [facility] Comment on above: Performed By: #### T ACRO #### [facility] (DEFAULT) [address] [place] [address] RBC (Bld) [#/Vol] 4.24 10*6/uL Low 4.38-5.83 [facility] Comment on above: Performed By: #### T ACRO #### [facility] (DEFAULT) [address] [address] RBC Distribution 13.6 % Normal 10.9-14.3 [facility] Comment on above: Performed By: #### T ACRO #### [facility] (DEFAULT) [address] [place] [address] WBC (Bld) [#/Vol] 4.59 10*3/uL Normal 3.73-10.10 [facility] Comment on above: Performed By: #### T ACRO #### [facility] (DEFAULT) [address] [place] [address] Erythrocyte distribution width (RBC) [Ratio] 13.6 % 10.9 - 14.3 % [facility] Hematocrit (Bld) [Volume fraction] 36.1 % Low 39.6 - 48.8 % [facility] Hemoglobin (Bld) [Mass/Vol] 11.6 g/dL Low 13.4 - 16.8 g/dL [facility] Interpretation and review of laboratory results Abnormal [facility] MCH (RBC) [Entitic mass] 27.4 pg 26.1 - 33.3 pg [facility] MCHC (RBC) [Mass/Vol] 32.1 g/dL 31.9 - 36.5 g/dL [facility] MCV (RBC) [Entitic vol] 85.1 fL 79.0 - 94.5 fL [facility] Platelet mean volume (Bld) [Entitic vol] 9.5 fL 8.7 - 12.3 fL [facility] Platelets (Bld) [#/Vol] 182 10*3/uL 146 - 337 K/uL [facility] RBC (Bld) [#/Vol] 4.24 10*6/uL Low [facility] WBC (Bld) [#/Vol] 4.59 10*3/uL 3.73 - 10. 10 K/uL [facility] CHEM 7 (LYTES,BUN,CREA,GLUC) on 09-08-2023 Anion gap [Moles/Vol] 12 mmol/L Normal 7-17 [facility] Comment on above: Performed By: #### H EMOGC #### [facility] (DEFAULT) [address] [place] [address] Chloride [Moles/Vol] 113 mmol/L High 98-108 [facility] Comment on above: Performed By: #### H EMO #### [facility] (DEFAULT) [address] [address] CO2 [Moles/Vol] 21 mmol/L Normal 21-31 [facility] Comment on above: Performed By: #### H EMO #### [facility] (DEFAULT) [address] [address] Creatinine [Mass/Vol] 1.14 mg/dL Normal 0.70-1.30 [facility] Comment on above: Performed By: #### H EMO #### [facility] (DEFAULT) [address] [address] GFR/1.73 sq M.predicted among non-blacks MDRD (S/P/Bld) [Vol rate/Area] 77 mL/min/{1.73_m2} Normal >=60 [facility] Comment on above: Result Comment: Repo rted eGFR is based on the CKD-EPI 2020 equation using creatinine, age, and sex. Performed By: #### H EMO #### [facility] (DEFAULT) [address] [address] Glucose [Mass/Vol] 107 mg/dL High 70-99 [facility] Comment on above: Performed By: #### H EMO #### [facility] (DEFAULT) [address] [address] Osmolality [Osmolality] 296 mosm/kg Normal 278-305 [facility] Comment on above: Performed By: #### H EMOGC #### [facility] (DEFAULT) [address] [address] Potassium [Moles/Vol] 3.9 mmol/L Normal 3.5-5.0 [facility] Comment on above: Performed By: #### H EMOGC #### [facility] (DEFAULT) [address] [place] [address] Sodium [Moles/Vol] 142 mmol/L Normal 135-145 [facility] Comment on above: Performed By: #### H [facility] #### [facility] (DEFAULT) [address] [place] [address] Urea nitrogen [Mass/Vol] 11 mg/dL Normal 7-25 [facility] Comment on above: Performed By: #### H [facility] #### [facility] (DEFAULT) [address] [place] [address] Urea nitrogen/Creatinine [Mass ratio] 10 mg/mg Normal [facility] Comment on above: Performed By: #### H [facility] #### [facility] (DEFAULT) [address] [place] [address] Anion gap [Moles/Vol] 12 mmol/L 7 - 17 mmol/L [facility] Chloride [Moles/Vol] 113 mmol/L High 98 - 10 8 mmol/L [facility] CO2 [Moles/Vol] 21 mmol/L 21 - 31 mmol/L [facility] Creatinine [Mass/Vol] 1.14 mg/dL 0.70 - 1.30 mg/dL [facility] eGFR, CKD-EPI, Male 77 - PINF [facility] Glucose [Mass/Vol] 107 mg/dL High 70 - 99 mg/dL [facility] Osmolality Calc [Osmolality] 296 [facility] Potassium [Moles/Vol] 3.9 mmol/L 3.5 - 5.0 mmol/L [facility] Sodium [Moles/Vol] 142 mmol/L 135 - 145 mmol/L [facility] Urea nitrogen [Mass/Vol] 11 mg/dL 7 - 25 mg/dL [facility] Urea nitrogen/Creatinine [Mass ratio] 10 mg/mg [facility] HEPATIC FUNCTION PANELon Albumin [Mass/Vol] 2.9 g/dL Low 3.5-5.0 [facility] Comment on above: Performed By: #### H [facility] #### [facility] (DEFAULT) [address] [place] [address] ALP [Catalytic activity/Vol] 133 U/L High 32-126 [facility] Comment on above: Performed By: #### H EMO #### [facility] (DEFAULT) [address] [place] [address] ALT [Catalytic activity/Vol] 23 U/L Normal 10-52 [facility] Comment on above: Performed By: #### H EMO #### [facility] (DEFAULT) [address] [place] [address] AST [Catalytic activity/Vol] 23 U/L Normal 10-39 [facility] Comment on above: Performed By: #### H EMO #### [facility] (DEFAULT) [address] [place] [address] Bilirubin [Mass/Vol] 0.8 mg/dL Normal <1.5 [facility] Comment on above: Performed By: #### H EMO #### [facility] (DEFAULT) [address] [place] [address] Bilirubin.indirect [Mass/Vol] 0.2 mg/dL Normal <0.3 [facility] Comment on above: Performed By: #### H EMO #### [facility] (DEFAULT) [address] [place] [address] Protein [Mass/Vol] 5.9 g/dL Low 6.4-8.3 [facility] Comment on above: Performed By: #### H EMO #### [facility] (DEFAULT) [address] [place] [address] Albumin [Mass/Vol] 2.9 g/dL Low 3.5 - 5.0 g/dL [facility] ALP [Catalytic activity/Vol] 133 U/L High 32 - 126 U/L [facility] ALT [Catalytic activity/Vol] 23 U/L 10 - 52 U/L [facility] AST [Catalytic activity/Vol] 23 U/L 10 - 39 U/L [facility] Bilirubin [Mass/Vol] 0.8 mg/dL NINF - 1.5 mg/dL [facility] Bilirubin.direct [Mass/Vol] 0.2 mg/dL NINF - 0.3 mg/dL [facility] Protein [Mass/Vol] 5.9 g/dL Low 6.4 - 8.3 g/dL [facility] MAGNESIUMon 09-08-2023 Magnesium [Mass/Vol] 1.8 mg/dL Normal 1.6-2.6 [facility] Comment on above: Performed By: #### H [facility] #### [facility] (DEFAULT) [address] [place] [address] Interpretation and review of laboratory results Normal [facility] Magnesium [Mass/Vol] 1.8 mg/dL 1.6 - 2 .6 mg/dL [facility] No Panel Informationon 09-08 Interpretation and review of laboratory results Abnormal [facility] PHOSPHATE, INORGANICon 09-08 Interpretation and review of laboratory results Normal [facility] Phosphate [Mass/Vol] 4.1 mg/dL 2.2 - 4 .6 mg/dL [facility] Phosphorous 4.1 mg/dL Normal 2.2-4.6 [facility] Comment on above: Performed By: #### H [facility] #### [facility] (DEFAULT) [address] [place] [address] TACROLIMUS LEVEL, TROUGH ([place] E DRUG LEVEL)on 09-08-2023 Interpretation and review of laboratory results Normal [facility] Tacrolimus (Bld) [Mass/Vol] 8.5 ng/mL [facility] Tacrolimus, Trough 8.5 ng/mL Normal Bone Susana ow Transplant: 4.0-12.0, Therapeutic: 5.0-15.0 [facility] Comment on above: Order Comment: Pleas e draw at specified interval PRIOR to dose. Do not hold dose to wait for level. Specimens batched twice per day, (M-F) and once per day weekendsMethod performed is a chemiluminescent microparticle immunoasssay on the [employer] i2000.The range is based on experience at [facility] and users should be aware that target concentrations vary widely depending on concomitant therapy, time post-transplant, and desired degree of immunosuppression. Performed By: #### N ONGNNONFNA #### [facility] (DEFAULT) [address] [address] CBC,PLATELETSon 09-07-2023 Hematocrit (Bld) [Volume fraction] 37.1 % Low 39.6-48.8 [facility] Comment on above: Performed By: #### Vale UNDERWOOD #### [facility] (DEFAULT) [address] [address] Hemoglobin (Bld) [Mass/Vol] 11.9 g/dL Low 13.4-16.8 [facility] Comment on above: Performed By: #### Vale UNDERWOOD #### [facility] (DEFAULT) [address] [address] MCV (RBC) [Entitic vol] 86.5 fL Normal 79.0-94.5 [facility] Comment on above: Performed By: #### Vale UNDERWOOD #### [facility] (DEFAULT) [address] [address] Mean Cell Hgb 27.7 pg Normal 26.1-33.3 [facility] Comment on above: Performed By: #### Vale UNDERWOOD #### [facility] (DEFAULT) [address] [address] Mean Cell Hgb Conc 32.1 g/dL Normal 31.9-36.5 [facility] Comment on above: Performed By: #### Vale UNDERWOOD #### [facility] (DEFAULT) [address] [address] Platelet mean volume (Bld) [Entitic vol] 9.6 fL Normal 8.7-12.3 [facility] Comment on above: Performed By: #### G YASMINE #### [facility] (DEFAULT) [address] [place] [address] Platelets (Bld) [#/Vol] 176 10*3/uL Normal 146-337 [facility] Comment on above: Performed By: #### Vale UNDERWOOD #### [facility] (DEFAULT) [address] [place] [address] RBC (Bld) [#/Vol] 4.29 10*6/uL Low 4.38-5.83 [facility] Comment on above: Performed By: #### Vale UNDERWOOD #### [facility] (DEFAULT) [address] [place] [address] RBC Distribution 13.5 % Normal 10.9-14.3 [facility] Comment on above: Performed By: #### Vale UNDERWOOD #### [facility] (DEFAULT) [address] [place] [address] WBC (Bld) [#/Vol] 4.10 10*3/uL Normal 3.73-10.10 [facility] Comment on above: Performed By: #### Vale UNDERWOOD #### [facility] (DEFAULT) [address] [place] [address] Erythrocyte distribution width (RBC) [Ratio] 13.5 % 10.9 - 14.3 % [facility] Hematocrit (Bld) [Volume fraction] 37.1 % Low 39.6 - 48.8 % [facility] Hemoglobin (Bld) [Mass/Vol] 11.9 g/dL Low 13.4 - 16.8 g/dL [facility] Interpretation and review of laboratory results Abnormal [facility] MCH (RBC) [Entitic mass] 27.7 pg 26.1 - 33.3 pg [facility] MCHC (RBC) [Mass/Vol] 32.1 g/dL 31.9 - 36.5 g/dL [facility] MCV (RBC) [Entitic vol] 86.5 fL 79.0 - 94.5 fL [facility] Platelet mean volume (Bld) [Entitic vol] 9.6 fL 8.7 - 12.3 fL [facility] Platelets (Bld) [#/Vol] 176 10*3/uL 146 - 337 K/uL [facility] RBC (Bld) [#/Vol] 4.29 10*6/uL Low [facility] WBC (Bld) [#/Vol] 4.10 10*3/uL 3.73 - 10. 10 K/uL [facility] CHEM 7 (LYTES,BUN,CREA,GLUC) on 09-07-2023 Anion gap [Moles/Vol] 13 mmol/L Normal 7-17 [facility] Comment on above: Performed By: #### Y PNRP #### [facility] (DEFAULT) [address] [place] [address] Chloride [Moles/Vol] 113 mmol/L High 98-108 [facility] Comment on above: Performed By: #### Y PNRP #### [facility] (DEFAULT) [address] [place] [address] CO2 [Moles/Vol] 19 mmol/L Low 21-31 [facility] Comment on above: Performed By: #### Y PNRP #### [facility] (DEFAULT) [address] [place] [address] Creatinine [Mass/Vol] 1.22 mg/dL Normal 0.70-1.30 [facility] Comment on above: Performed By: #### Y PNRP #### [facility] (DEFAULT) [address] [place] [address] GFR/1.73 sq M.predicted among non-blacks MDRD (S/P/Bld) [Vol rate/Area] 71 mL/min/{1.73_m2} Normal >=60 [facility] Comment on above: Result Comment: Repo rted eGFR is based on the CKD-EPI 2020 equation using creatinine, age, and sex. Performed By: #### Y PNRP #### [facility] (DEFAULT) [address] [place] [address] Glucose [Mass/Vol] 107 mg/dL High 70-99 [facility] Comment on above: Performed By: #### Y PNRP #### [facility] (DEFAULT) [address] [place] [address] Osmolality [Osmolality] 295 mosm/kg Normal 278-305 [facility] Comment on above: Performed By: #### Y PNRP #### [facility] (DEFAULT) [address] [place] [address] Potassium [Moles/Vol] 3.9 mmol/L Normal 3.5-5.0 [facility] Comment on above: Performed By: #### Y PNRP #### [facility] (DEFAULT) [address] [place] [address] Sodium [Moles/Vol] 141 mmol/L Normal 135-145 [facility] Comment on above: Performed By: #### Y PNRP #### [facility] (DEFAULT) [address] [place] [address] Urea nitrogen [Mass/Vol] 13 mg/dL Normal 7-25 [facility] Comment on above: Performed By: #### Y PNRP #### [facility] (DEFAULT) [address] [place] [address] Urea nitrogen/Creatinine [Mass ratio] 11 mg/mg Normal [facility] Comment on above: Performed By: #### Y PNRP #### [facility] (DEFAULT) [address] [place] [address] Anion gap [Moles/Vol] 13 mmol/L 7 - 17 mmol/L [facility] Chloride [Moles/Vol] 113 mmol/L High 98 - 10 8 mmol/L [facility] CO2 [Moles/Vol] 19 mmol/L Low 21 - 31 mmol/L [facility] Creatinine [Mass/Vol] 1.22 mg/dL 0.70 - 1.30 mg/dL [facility] eGFR, CKD-EPI, Male 71 - PINF [facility] Glucose [Mass/Vol] 107 mg/dL High 70 - 99 mg/dL [facility] Osmolality Calc [Osmolality] 295 [facility] Potassium [Moles/Vol] 3.9 mmol/L 3.5 - 5.0 mmol/L [facility] Sodium [Moles/Vol] 141 mmol/L 135 - 145 mmol/L [facility] Urea nitrogen [Mass/Vol] 13 mg/dL 7 - 25 mg/dL [facility] Urea nitrogen/Creatinine [Mass ratio] 11 mg/mg [facility] HEPATIC FUNCTION PANELon Albumin [Mass/Vol] 2.9 g/dL Low 3.5-5.0 [facility] Comment on above: Performed By: #### Y PNRP #### [facility] (DEFAULT) [address] [address] ALP [Catalytic activity/Vol] 111 U/L Normal 32-126 [facility] Comment on above: Performed By: #### Y PNRP #### [facility] (DEFAULT) [address] [address] ALT [Catalytic activity/Vol] 18 U/L Normal 10-52 [facility] Comment on above: Performed By: #### Y PNRP #### [facility] (DEFAULT) [address] [place] [address] AST [Catalytic activity/Vol] 23 U/L Normal 10-39 [facility] Comment on above: Performed By: #### Y PNRP #### [facility] (DEFAULT) [address] [place] [address] Bilirubin [Mass/Vol] 0.8 mg/dL Normal <1.5 [facility] Comment on above: Performed By: #### Y PNRP #### [facility] (DEFAULT) [address] [place] [address] Bilirubin.indirect [Mass/Vol] 0.3 mg/dL High <0.3 [facility] Comment on above: Performed By: #### Y PNRP #### [facility] (DEFAULT) [address] [place] [address] Protein [Mass/Vol] 6.0 g/dL Low 6.4-8.3 [facility] Comment on above: Performed By: #### Y PNRP #### [facility] (DEFAULT) [address] [place] [address] Albumin [Mass/Vol] 2.9 g/dL Low 3.5 - 5.0 g/dL [facility] ALP [Catalytic activity/Vol] 111 U/L 32 - 126 U/L [facility] ALT [Catalytic activity/Vol] 18 U/L 10 - 52 U/L [facility] AST [Catalytic activity/Vol] 23 U/L 10 - 39 U/L [facility] Bilirubin [Mass/Vol] 0.8 mg/dL NINF - 1.5 mg/dL [facility] Bilirubin.direct [Mass/Vol] 0.3 mg/dL High NINF - 0.3 mg/dL [facility] Protein [Mass/Vol] 6.0 g/dL Low 6.4 - 8.3 g/dL [facility] MAGNESIUMon 09-07-2023 Magnesium [Mass/Vol] 1.7 mg/dL Normal 1.6-2.6 [facility] Comment on above: Performed By: #### Y PNRP #### [facility] (DEFAULT) [address] [place] [address] Interpretation and review of laboratory results Normal [facility] Magnesium [Mass/Vol] 1.7 mg/dL 1.6 - 2 .6 mg/dL [facility] No Panel Informationon 09-07 Interpretation and review of laboratory results Abnormal [facility] PHOSPHATE, INORGANICon 09-07 Phosphorous 4.4 mg/dL Normal 2.2-4.6 [facility] Comment on above: Performed By: #### Y PNRP #### [facility] (DEFAULT) [address] [address] Interpretation and review of laboratory results Normal [facility] Phosphate [Mass/Vol] 4.4 mg/dL 2.2 - 4 .6 mg/dL [facility] TACROLIMUS LEVEL, TROUGH (TX E DRUG LEVEL)Ordered By: Elizabeth Maldonado on 09-07-2023 Interpretation and review of laboratory results Normal [facility] Tacrolimus (Bld) [Mass/Vol] 7.8 ng/mL [facility] TACROLIMUS LEVEL, TROUGH (TX E DRUG LEVEL)on 09-07-2023 Tacrolimus, Trough 7.8 ng/mL Normal Bone Susana ow Transplant: 4.0-12.0, Therapeutic: 5.0-15.0 [facility] Comment on above: Order Comment: Pleas e draw at specified interval PRIOR to dose. Do not hold dose to wait for level. Specimens batched twice per day, (M-F) and once per day weekends Method performed is a chemiluminescent microparticle immunoasssay on the [employer] i2000. The range is based on experience at [facility] and users should be aware that target concentrations vary widely depending on concomitant therapy, time post-transplant, and desired degree of immunosuppression. Performed By: #### T ACRO #### [facility] (DEFAULT) [address] [place] [address] CBC,PLATELETSon 09-06-2023 Hematocrit (Bld) [Volume fraction] 38.4 % Low 39.6-48.8 [facility] Comment on above: Performed By: #### Y PNRP #### [facility] (DEFAULT) [address] [address] Hemoglobin (Bld) [Mass/Vol] 11.9 g/dL Low 13.4-16.8 [facility] Comment on above: Performed By: #### Y PNRP #### [facility] (DEFAULT) [address] [address] MCV (RBC) [Entitic vol] 85.9 fL Normal 79.0-94.5 [facility] Comment on above: Performed By: #### Y PNRP #### [facility] (DEFAULT) [address] [place] [address] Mean Cell Hgb 26.6 pg Normal 26.1-33.3 [facility] Comment on above: Performed By: #### Y PNRP #### [facility] (DEFAULT) [address] [place] [address] Mean Cell Hgb Conc 31.0 g/dL Low 31.9-36.5 [facility] [facility] Comment on above: Performed By: #### Y PNRP #### [facility] (DEFAULT) [address] [place] [address] 72543 Platelet mean volume (Bld) [Entitic vol] 9.7 fL Normal 8.7-12.3 [facility] Comment on above: Performed By: #### Y PNRP #### [facility] (DEFAULT) [address] [place] [address] 32906 Platelets (Bld) [#/Vol] 181 10*3/uL Normal 146-337 [facility] Comment on above: Performed By: #### Y PNRP #### [facility] (DEFAULT) [address] [place] [address] 26245 RBC (Bld) [#/Vol] 4.47 10*6/uL Normal 4.38-5.83 [facility] Comment on above: Performed By: #### Y PNRP #### [facility] (DEFAULT) [address] [place] [address] 06564 RBC Distribution 13.4 % Normal 10.9-14.3 [facility] Comment on above: Performed By: #### Y PNRP #### [facility] (DEFAULT) [address] [place] [address] 82897 WBC (Bld) [#/Vol] 4.41 10*3/uL Normal 3.73-10.10 [facility] Comment on above: Performed By: #### Y PNRP #### [facility] (DEFAULT) [address] [place] [address] Erythrocyte distribution width (RBC) [Ratio] 13.4 % 10.9 - 14.3 % [facility] Hematocrit (Bld) [Volume fraction] 38.4 % Low 39.6 - 48.8 % [facility] Hemoglobin (Bld) [Mass/Vol] 11.9 g/dL Low 13.4 - 16.8 g/dL [facility] Interpretation and review of laboratory results Abnormal [facility] MCH (RBC) [Entitic mass] 26.6 pg 26.1 - 33.3 pg [facility] MCHC (RBC) [Mass/Vol] 31.0 g/dL Low 31.9 - 36.5 g/dL [facility] MCV (RBC) [Entitic vol] 85.9 fL 79.0 - 94.5 fL [facility] Platelet mean volume (Bld) [Entitic vol] 9.7 fL 8.7 - 12.3 fL [facility] Platelets (Bld) [#/Vol] 181 10*3/uL 146 - 337 K/uL [facility] RBC (Bld) [#/Vol] 4.47 10*6/uL [facility] WBC (Bld) [#/Vol] 4.41 10*3/uL 3.73 - 10. 10 K/uL [facility] CHEM 7 (LYTES,BUN,CREA,GLUC) on 09-06-2023 Anion gap [Moles/Vol] 14 mmol/L 7 - 17 mmol/L [facility] Chloride [Moles/Vol] 109 mmol/L High 98 - 10 8 mmol/L [facility] CO2 [Moles/Vol] 19 mmol/L Low 21 - 31 mmol/L [facility] Creatinine [Mass/Vol] 1.26 mg/dL 0.70 - 1.30 mg/dL [facility] eGFR, CKD-EPI, Male 69 - PINF [facility] Glucose [Mass/Vol] 114 mg/dL High 70 - 99 mg/dL [facility] Osmolality Calc [Osmolality] 291 [facility] Potassium [Moles/Vol] 4.1 mmol/L 3.5 - 5.0 mmol/L [facility] Sodium [Moles/Vol] 138 mmol/L 135 - 145 mmol/L [facility] Urea nitrogen [Mass/Vol] 16 mg/dL 7 - 25 mg/dL [facility] Urea nitrogen/Creatinine [Mass ratio] 13 mg/mg [facility] Anion gap [Moles/Vol] 14 mmol/L Normal 7-17 [facility] Comment on above: Performed By: #### L EGN #### [facility] (DEFAULT) [address] [place] [address] Chloride [Moles/Vol] 109 mmol/L High 98-108 [facility] Comment on above: Performed By: #### L EGN #### [facility] (DEFAULT) [address] [place] [address] CO2 [Moles/Vol] 19 mmol/L Low 21-31 [facility] Comment on above: Performed By: #### L EGN #### [facility] (DEFAULT) [address] [place] [address] Creatinine [Mass/Vol] 1.26 mg/dL Normal 0.70-1.30 [facility] Comment on above: Performed By: #### L EGN #### [facility] (DEFAULT) [address] [place] [address] 16978 GFR/1.73 sq M.predicted among non-blacks MDRD (S/P/Bld) [Vol rate/Area] 69 mL/min/{1.73_m2} Normal >=60 [facility] Comment on above: Result Comment: Repo rted eGFR is based on the CKD-EPI 2020 equation using creatinine, age, and sex. Performed By: #### L EGN #### [facility] (DEFAULT) [address] [place] [address] 90129 Glucose [Mass/Vol] 114 mg/dL High 70-99 [facility] Comment on above: Performed By: #### L EGN #### [facility] (DEFAULT) [address] [place] [address] Osmolality [Osmolality] 291 mosm/kg Normal 278-305 [facility] Comment on above: Performed By: #### L EGN #### [facility] (DEFAULT) [address] [place] [address] 08493 Potassium [Moles/Vol] 4.1 mmol/L Normal 3.5-5.0 [facility] Comment on above: Performed By: #### L EGN #### [facility] (DEFAULT) [address] [place] [address] 14191 Sodium [Moles/Vol] 138 mmol/L Normal 135-145 [facility] Comment on above: Performed By: #### L EGN #### [facility] (DEFAULT) [address] [place] [address] 96316 Urea nitrogen [Mass/Vol] 16 mg/dL Normal 7-25 [facility] Comment on above: Performed By: #### L EGN #### [facility] (DEFAULT) [address] [place] [address] 59279 Urea nitrogen/Creatinine [Mass ratio] 13 mg/mg Normal [facility] Comment on above: Performed By: #### L EGN #### [facility] (DEFAULT) [address] [place] [address] 40011 HEPATIC FUNCTION PANELon Albumin [Mass/Vol] 3.0 g/dL Low 3.5 - 5.0 g/dL [facility] ALP [Catalytic activity/Vol] 115 U/L 32 - 126 U/L [facility] ALT [Catalytic activity/Vol] 25 U/L 10 - 52 U/L [facility] AST [Catalytic activity/Vol] 31 U/L 10 - 39 U/L [facility] Bilirubin [Mass/Vol] 1.0 mg/dL NINF - 1.5 mg/dL [facility] Bilirubin.direct [Mass/Vol] 0.3 mg/dL High NINF - 0.3 mg/dL [facility] Protein [Mass/Vol] 6.3 g/dL Low 6.4 - 8.3 g/dL [facility] Albumin [Mass/Vol] 3.0 g/dL Low 3.5-5.0 [facility] Comment on above: Performed By: #### L EGN #### [facility] (DEFAULT) [address] [place] [address] 11943 ALP [Catalytic activity/Vol] 115 U/L Normal 32-126 [facility] Comment on above: Performed By: #### L EGN #### [facility] (DEFAULT) [address] [place] [address] 04888 ALT [Catalytic activity/Vol] 25 U/L Normal 10-52 [facility] Comment on above: Performed By: #### L EGN #### [facility] (DEFAULT) [address] [place] [address] 59345 AST [Catalytic activity/Vol] 31 U/L Normal 10-39 [facility] Comment on above: Performed By: #### L EGN #### [facility] (DEFAULT) [address] [place] [address] 36913 Bilirubin [Mass/Vol] 1.0 mg/dL Normal <1.5 [facility] Comment on above: Performed By: #### L EGN #### [facility] (DEFAULT) [address] [place] [address] 67633 Bilirubin.indirect [Mass/Vol] 0.3 mg/dL High <0.3 [facility] Comment on above: Performed By: #### L EGN #### [facility] (DEFAULT) [address] [place] [address] 32502 Protein [Mass/Vol] 6.3 g/dL Low 6.4-8.3 [facility] Comment on above: Performed By: #### L EGN #### [facility] (DEFAULT) [address] [place] [address] 09520 MAGNESIUMon 09-06-2023 Interpretation and review of laboratory results Normal [facility] Magnesium [Mass/Vol] 2.0 mg/dL 1.6 - 2 .6 mg/dL [facility] Magnesium [Mass/Vol] 2.0 mg/dL Normal 1.6-2.6 [facility] Comment on above: Performed By: #### L EGN #### [facility] (DEFAULT) [address] [place] [address] 05052 No Panel Informationon 09-06 Interpretation and review of laboratory results Abnormal [facility] TACROLIMUS LEVEL, TROUGH (TX E DRUG LEVEL)on 09-06-2023 Interpretation and review of laboratory results Normal [facility] Tacrolimus (Bld) [Mass/Vol] 6.7 ng/mL [facility] Tacrolimus, Trough 6.7 ng/mL Normal Bone Susana ow Transplant: 4.0-12.0, Therapeutic: 5.0-15.0 [facility] Comment on above: Order Comment: Pleas e draw at specified interval PRIOR to dose. Do not hold dose to wait for level. Specimens batched twice per day, (M-) and once per day weekends Method performed is a chemiluminescent microparticle immunoasssay on the [employer] i2000. The range is based on experience at [facility] and users should be aware that target concentrations vary widely depending on concomitant therapy, time post-transplant, and desired degree of immunosuppression. Performed By: #### T ACRO #### [facility] (DEFAULT) [address] [place] [address] 30972 CBC,PLATELETSon 09-05-2023 Hematocrit (Bld) [Volume fraction] 35.6 % Low 39.6-48.8 [facility] Comment on above: Performed By: #### T ACRO #### [facility] (DEFAULT) [address] [place] [address] 21755 Hemoglobin (Bld) [Mass/Vol] 11.4 g/dL Low 13.4-16.8 [facility] Comment on above: Performed By: #### T ACRO #### [facility] (DEFAULT) [address] [place] [address] 76078 MCV (RBC) [Entitic vol] 86.0 fL Normal 79.0-94.5 [facility] Comment on above: Performed By: #### T ACRO #### [facility] (DEFAULT) [address] [place] [address] 43621 Mean Cell Hgb 27.5 pg Normal 26.1-33.3 [facility] Comment on above: Performed By: #### T ACRO #### [facility] (DEFAULT) [address] [place] [address] 27530 Mean Cell Hgb Conc 32.0 g/dL Normal 31.9-36.5 [facility] Comment on above: Performed By: #### T ACRO #### [facility] (DEFAULT) [address] [place] [address] 21045 Platelet mean volume (Bld) [Entitic vol] 10.0 fL Normal 8.7-12.3 [facility] Comment on above: Performed By: #### T ACRO #### [facility] (DEFAULT) [address] [place] [address] 71343 Platelets (Bld) [#/Vol] 170 10*3/uL Normal 146-337 [facility] Comment on above: Performed By: #### T ACRO #### [facility] (DEFAULT) [address] [address] RBC (Bld) [#/Vol] 4.14 10*6/uL Low 4.38-5.83 [facility] Comment on above: Performed By: #### T ACRO #### [facility] (DEFAULT) [address] [place] [address] 00534 RBC Distribution 13.5 % Normal 10.9-14.3 [facility] Comment on above: Performed By: #### T ACRO #### [facility] (DEFAULT) [address] [place] [address] WBC (Bld) [#/Vol] 4.24 10*3/uL Normal 3.73-10.10 [facility] Comment on above: Performed By: #### T ACRO #### [facility] (DEFAULT) [address] [place] [address] Erythrocyte distribution width (RBC) [Ratio] 13.5 % 10.9 - 14.3 % [facility] Hematocrit (Bld) [Volume fraction] 35.6 % Low 39.6 - 48.8 % [facility] Hemoglobin (Bld) [Mass/Vol] 11.4 g/dL Low 13.4 - 16.8 g/dL [facility] Interpretation and review of laboratory results Abnormal [facility] MCH (RBC) [Entitic mass] 27.5 pg 26.1 - 33.3 pg [facility] MCHC (RBC) [Mass/Vol] 32.0 g/dL 31.9 - 36.5 g/dL [facility] MCV (RBC) [Entitic vol] 86.0 fL 79.0 - 94.5 fL [facility] Platelet mean volume (Bld) [Entitic vol] 10.0 fL 8.7 - 12.3 fL [facility] Platelets (Bld) [#/Vol] 170 10*3/uL 146 - 337 K/uL [facility] RBC (Bld) [#/Vol] 4.14 10*6/uL Low [facility] WBC (Bld) [#/Vol] 4.24 10*3/uL 3.73 - 10. 10 K/uL [facility] CHEM 7 (LYTES,BUN,CREA,GLUC) on 09-05-2023 Anion gap [Moles/Vol] 12 mmol/L Normal 7-17 [facility] Comment on above: Performed By: #### L EGN #### [facility] (DEFAULT) [address] [place] [address] 69463 Chloride [Moles/Vol] 107 mmol/L Normal 98-108 [facility] Comment on above: Performed By: #### L EGN #### [facility] (DEFAULT) [address] [place] [address] 52733 CO2 [Moles/Vol] 20 mmol/L Low 21-31 [facility] Comment on above: Performed By: #### L EGN #### [facility] (DEFAULT) [address] [place] [address] 29469 Creatinine [Mass/Vol] 1.43 mg/dL High 0.70-1.30 [facility] Comment on above: Performed By: #### L EGN #### [facility] (DEFAULT) [address] [place] [address] 03912 GFR/1.73 sq M.predicted among non-blacks MDRD (S/P/Bld) [Vol rate/Area] 59 mL/min/{1.73_m2} Low >=60 [facility] Comment on above: Result Comment: Repo rted eGFR is based on the CKD-EPI 2020 equation using creatinine, age, and sex. Performed By: #### L EGN #### [facility] (DEFAULT) [address] [place] [address] 97857 Glucose [Mass/Vol] 111 mg/dL High 70-99 [facility] Comment on above: Performed By: #### L EGN #### [facility] (DEFAULT) [address] [place] [address] 58964 Osmolality [Osmolality] 286 mosm/kg Normal 278-305 [facility] Comment on above: Performed By: #### L EGN #### [facility] (DEFAULT) [address] [place] [address] 07955 Potassium [Moles/Vol] 4.2 mmol/L Normal 3.5-5.0 [facility] Comment on above: Performed By: #### L EGN #### [facility] (DEFAULT) [address] [place] [address] Sodium [Moles/Vol] 135 mmol/L Normal 135-145 [facility] Comment on above: Performed By: #### L EGN #### [facility] (DEFAULT) [address] [place] [address] Urea nitrogen [Mass/Vol] 18 mg/dL Normal 7-25 [facility] Comment on above: Performed By: #### L EGN #### [facility] (DEFAULT) [address] [place] [address] Urea nitrogen/Creatinine [Mass ratio] 13 mg/mg Normal [facility] Comment on above: Performed By: #### L EGN #### [facility] (DEFAULT) [address] [place] [address] 79551 Anion gap [Moles/Vol] 12 mmol/L 7 - 17 mmol/L [facility] Chloride [Moles/Vol] 107 mmol/L 98 - 10 8 mmol/L [facility] CO2 [Moles/Vol] 20 mmol/L Low 21 - 31 mmol/L [facility] Creatinine [Mass/Vol] 1.43 mg/dL High 0.70 - 1.30 mg/dL [facility] eGFR, CKD-EPI, Male 60 Low - PINF [facility] Glucose [Mass/Vol] 111 mg/dL High 70 - 99 mg/dL [facility] Osmolality Calc [Osmolality] 286 [facility] Potassium [Moles/Vol] 4.2 mmol/L 3.5 - 5.0 mmol/L [facility] Sodium [Moles/Vol] 135 mmol/L 135 - 145 mmol/L [facility] Urea nitrogen [Mass/Vol] 18 mg/dL 7 - 25 [facility] Urea nitrogen/Creatinine [Mass ratio] 13 mg/[facility] CONTINUOUS CARDIAC MONITORIN G STRIPon 10-07-2023 [facility] HEPATIC FUNCTION PANELon Albumin [Mass/Vol] 2.8 g/dL Low 3.5-5.0 [facility] Comment on above: Performed By: #### L EGN #### [facility] (DEFAULT) [address] [place] [address] ALP [Catalytic activity/Vol] 103 U/L Normal 32-126 [facility] Comment on above: Performed By: #### L EGN #### [facility] (DEFAULT) [address] [place] [address] ALT [Catalytic activity/Vol] 26 U/L Normal 10-52 [facility] Comment on above: Performed By: #### L EGN #### [facility] (DEFAULT) [address] [place] [address] AST [Catalytic activity/Vol] 38 U/L Normal 10-39 [facility] Comment on above: Performed By: #### L EGN #### [facility] (DEFAULT) [address] [place] [address] Bilirubin [Mass/Vol] 0.9 mg/dL Normal <1.5 [facility] Comment on above: Performed By: #### L EGN #### [facility] (DEFAULT) [address] [place] [address] Bilirubin.indirect [Mass/Vol] 0.1 mg/dL Normal <0.3 [facility] Comment on above: Performed By: #### L EGN #### [facility] (DEFAULT) [address] [place] [address] Protein [Mass/Vol] 6.1 g/dL Low 6.4-8.3 [facility] Comment on above: Performed By: #### L EGN #### [facility] (DEFAULT) [address] [place] [address] Albumin [Mass/Vol] 2.8 g/dL Low 3.5 - 5.0 g/dL [facility] ALP [Catalytic activity/Vol] 103 U/L 32 - 126 U/L [facility] ALT [Catalytic activity/Vol] 26 U/L 10 - 52 U/L [facility] AST [Catalytic activity/Vol] 38 U/L 10 - 39 U/L [facility] Bilirubin [Mass/Vol] 0.9 mg/dL NINF - 1.5 mg/dL [facility] Bilirubin.direct [Mass/Vol] 0.1 mg/dL NINF - 0.3 mg/dL [facility] Protein [Mass/Vol] 6.1 g/dL Low 6.4 - 8.3 g/dL [facility] HISTOPLASMA ANTIGEN, FLUIDon 09-05-2023 FH SOURCE BAL RML [facility] Histo FLD interpretation Negative [facility] Histoplasma Antigen, FLUID Not detected ng/mL [facility] HISTOPLASMA CAPSULATUM/BLAST OMYCES SPECIES,PCR FLUIDon 09-05-2023 HISTO/BLASTO RESULT Negative Not Applicable [facility] Specimen source Nom (Unsp spec) BAL RML [facility] IMMUNOPHENOTYPING, TISSUE/FL UIDon 09-05-2023 BKR DX CODE Use Ordering [facility] Flow Interpretation See Comment [facility] Flow Interpreted by: Yossi Perla MD, PhD [facility] MAGNESIUMon 09-05-2023 Magnesium [Mass/Vol] 1.7 mg/dL Normal 1.6-2.6 [facility] Comment on above: Performed By: #### L EGN #### [facility] (DEFAULT) [address] [place] [address] Interpretation and review of laboratory results Normal [facility] Magnesium [Mass/Vol] 1.7 mg/dL 1.6 - 2 .6 mg/dL [facility] No Panel Informationon 09-05 Interpretation and review of laboratory results Abnormal [facility] TACROLIMUS LEVEL, TROUGH (TX E DRUG LEVEL)Ordered By: Raymundo Mehta on 09-05-2023 Interpretation and review of laboratory results Normal [facility] Tacrolimus (Bld) [Mass/Vol] 5.3 ng/mL [facility] TACROLIMUS LEVEL, TROUGH (TX E DRUG LEVEL)on 09-05-2023 Tacrolimus, Trough 5.3 ng/mL Normal Bone Susana ow Transplant: 4.0-12.0, Therapeutic: 5.0-15.0 [facility] Comment on above: Order Comment: Pleas e draw at specified interval PRIOR to dose. Do not hold dose to wait for level. Specimens batched twice per day, (M-F) and once per day weekendsMethod performed is a chemiluminescent microparticle immunoasssay on the [employer] i2000.The range is based on experience at [facility] and users should be aware that target concentrations vary widely depending on concomitant therapy, time post-transplant, and desired degree of immunosuppression. Performed By: #### Y PNRP #### [facility] (DEFAULT) [address] [place] [address] 65107 ARTERIAL BLOOD GAS (FULL PUENTE EL)on 09-04-2023 Base Excess -1.2 mmol/L Normal -3.0-3.0 [facility] Comment on above: Performed By: #### G YASMINE #### [facility] (DEFAULT) [address] [place] [address] 72278 Carboxyhemoglobin 0.7 % Normal <=1.5 [facility] Comment on above: Performed By: #### G YASMINE #### [facility] (DEFAULT) [address] [address] Glucose [Mass/Vol] 159 mg/dL High 70-99 [facility] Comment on above: Performed By: #### G YASMINE #### [facility] (DEFAULT) [address] [place] [address] 65030 HCO3 (Bld) [Moles/Vol] 22 mmol/L Normal 22-28 [facility] Comment on above: Performed By: #### Vale UNDERWOOD #### [facility] (DEFAULT) [address] [place] [address] 59072 Hematocrit (Bld) [Volume fraction] 38.0 % Low 40.2-50.4 [facility] Comment on above: Performed By: #### Vale UNDERWOOD #### [facility] (DEFAULT) [address] [place] [address] 65165 Hemoglobin (Bld) [Mass/Vol] 12.6 g/dL Low 13.4-16.8 [facility] Comment on above: Performed By: #### Vale UNDERWOOD #### [facility] (DEFAULT) [address] [place] [address] 54904 Ionized Calcium, Whole Blood 4.79 mg/dL Normal 4.60-5.30 [facility] Comment on above: Performed By: ###Walter UNDERWOOD #### [facility] (DEFAULT) [address] [place] [address] 04859 Lactate, Whole Blood 2.0 mmol/L High 0.5-1.6 [facility] Comment on above: Performed By: ###Walter UNDERWOOD #### [facility] (DEFAULT) [address] [place] [address] 53104 Methemoglobin 0.0 % Normal <=1.5 [facility] Comment on above: Performed By: ###Walter UNDERWOOD #### [facility] (DEFAULT) [address] [place] [address] 50977 Oxyhemoglobin 91 % Low 94-98 [facility] Comment on above: Performed By: #### Vale UNDERWOOD #### [facility] (DEFAULT) [address] [place] [address] 11763 pCO2 30 mm Hg Low 32-48 [facility] Comment on above: Performed By: #### Vale UNDERWOOD #### [facility] (DEFAULT) [address] [place] [address] 73455 pH (Bld) 7.48 [pH] High 7.35-7.45 [facility] Comment on above: Performed By: #### Vale UNDERWOOD #### [facility] (DEFAULT) [address] [place] [address] 09767 pO2 62 mm Hg Low 83-108 [facility] Comment on above: Performed By: #### Vale UNDERWOOD #### [facility] (DEFAULT) [address] [place] [address] 67646 Potassium [Moles/Vol] 4.2 mmol/L Normal 3.5-5.0 [facility] Comment on above: Performed By: #### Vale UNDERWOOD #### [facility] (DEFAULT) [address] [place] [address] 48929 sO2 92 % Low 94-98 [facility] Comment on above: Performed By: #### Vale UNDERWOOD #### [facility] (DEFAULT) [address] [place] [address] 01463 Sodium [Moles/Vol] 130 mmol/L Low 135-145 [facility] Comment on above: Performed By: #### Vale UNDERWOOD #### [facility] (DEFAULT) [address] [place] [address] 06102 Specimen type Nom (Spec) Arterial Normal [facility] Comment on above: Performed By: ###Walter UNDERWOOD #### [facility] (DEFAULT) [address] [place] [address] 19992 Base excess Calc (Bld) [Moles/Vol] -1.2000 mmol/L -3.0 - 3.0 mmol/L [facility] Calcium.ionized (Bld) [Mass/Vol] 4.79 mg/dL 4.60 - 5.30 mg/dL [facility] Carboxyhemoglobin (Bld) [Mass fraction] 0.7 % NINF - 1.5 % [facility] CO2 (Bld) [Partial pressure] 30 mm[Hg] Low [facility] Glucose [Mass/Vol] 159 mg/dL High 70 - 99 mg/dL [facility] HCO3 (Bld) [Moles/Vol] 22 mmol/L 22 - 28 mmol/L [facility] Hematocrit (Bld) [Volume fraction] 38.0 % Low 40.2 - 50.4 % [facility] Hemoglobin (Bld) [Mass/Vol] 12.6 g/dL Low 13.4 - 16.8 g/dL [facility] Interpretation and review of laboratory results Abnormal [facility] Lactate [Moles/Vol] 2.0 mmol/L High 0.5 - 1. 6 mmol/L [facility] Methemoglobin (Bld) [Mass fraction] 0.0 % NINF - 1.5 % [facility] Oxygen (Bld) [Partial pressure] 62 mm[Hg] Low [facility] Oxygen saturation in Blood 92 % Low 94 - 98 % [facility] Oxyhemoglobin 91 % Low 94 - 98 % [facility] pH (Bld) 7.48 [pH] High 7.35 - 7.45 [facility] Potassium [Moles/Vol] 4.2 mmol/L 3.5 - 5.0 mmol/L [facility] Sodium [Moles/Vol] 130 mmol/L Low 135 - 145 mmol/L [facility] Specimen source Nom (Unsp spec) Arterial [facility] Bacteria identified Respirat ory culture Nom (Unsp spec)on 09-04-2023 Bacteria identified Cx Nom (Unsp spec) NO GROWTH DAY 2 OF 2 [facility] Microscopic observation Other stain Nom (Unsp spec) Cytocentrifuge preparation [facility] Microscopic observation Other stain Nom (Unsp spec) Neutrophils, Rare [facility] Microscopic observation Other stain Nom (Unsp spec) Red Blood Cells Present OS [facility] Microscopic observation Other stain Nom (Unsp spec) No organisms seen [facility] Bacteria identified Respirat ory culture Nom (Unsp spec)Ordered By: Jose Salgado on 09-04-2023 Bacteria identified Cx Nom (Unsp spec) NO GROWTH DAY 2 OF 2 [facility] Microscopic observation Other stain Nom (Unsp spec) Cytocentrifuge preparation [facility] Microscopic observation Other stain Nom (Unsp spec) Neutrophils, Moderate [facility] Other stain Nom (Unsp spec) Red Blood Cells Present OS [facility] Microscopic observation Other stain Nom (Unsp spec) No organisms seen [facility] CBC,PLATELETSon 09-04-2023 Hematocrit (Bld) [Volume fraction] 38.7 % Low 39.6-48.8 [facility] Comment on above: Performed By: #### N ONGNNONFNA #### [facility] (DEFAULT) [address] [address] Hemoglobin (Bld) [Mass/Vol] 12.3 g/dL Low 13.4-16.8 [facility] Comment on above: Performed By: #### N ONGNNONFNA #### [facility] (DEFAULT) [address] [address] MCV (RBC) [Entitic vol] 87.8 fL Normal 79.0-94.5 [facility] Comment on above: Performed By: #### N ONGNNONFNA #### [facility] (DEFAULT) [address] [address] Mean Cell Hgb 27.9 pg Normal 26.1-33.3 [facility] Comment on above: Performed By: #### N ONGNNONFNA #### [facility] (DEFAULT) [address] [place] [address] Mean Cell Hgb Conc 31.8 g/dL Low 31.9-36.5 [facility] Comment on above: Performed By: #### N ONGNNONFNA #### [facility] (DEFAULT) [address] [address] Platelet mean volume (Bld) [Entitic vol] 9.8 fL Normal 8.7-12.3 [facility] Comment on above: Performed By: #### N ONGNNONFNA #### [facility] (DEFAULT) [address] [place] [address] Platelets (Bld) [#/Vol] 173 10*3/uL Normal 146-337 [facility] Comment on above: Performed By: #### N ONGNNONFNA #### [facility] (DEFAULT) [address] [place] [address] RBC (Bld) [#/Vol] 4.41 10*6/uL Normal 4.38-5.83 [facility] Comment on above: Performed By: #### N ONGNNONFNA #### [facility] (DEFAULT) [address] [place] [address] RBC Distribution 13.2 % Normal 10.9-14.3 [facility] Comment on above: Performed By: #### N ONGNNONFNA #### [facility] (DEFAULT) [address] [place] [address] WBC (Bld) [#/Vol] 4.57 10*3/uL Normal 3.73-10.10 [facility] Comment on above: Performed By: #### N ONGNNONFNA #### [facility] (DEFAULT) [address] [place] [address] Erythrocyte distribution width (RBC) [Ratio] 13.2 % 10.9 - 14.3 % [facility] Hematocrit (Bld) [Volume fraction] 38.7 % Low 39.6 - 48.8 % [facility] Hemoglobin (Bld) [Mass/Vol] 12.3 g/dL Low 13.4 - 16.8 g/dL [facility] Interpretation and review of laboratory results Abnormal [facility] MCH (RBC) [Entitic mass] 27.9 pg 26.1 - 33.3 pg [facility] MCHC (RBC) [Mass/Vol] 31.8 g/dL Low 31.9 - 36.5 g/dL [facility] MCV (RBC) [Entitic vol] 87.8 fL 79.0 - 94.5 fL [facility] Platelet mean volume (Bld) [Entitic vol] 9.8 fL 8.7 - 12.3 fL [facility] Platelets (Bld) [#/Vol] 173 10*3/uL 146 - 337 K/uL [facility] RBC (Bld) [#/Vol] 4.41 10*6/uL [facility] WBC (Bld) [#/Vol] 4.57 10*3/uL 3.73 - 10. 10 K/uL [facility] CHEM 7 (LYTES,BUN,CREA,GLUC) on 09-04-2023 Anion gap [Moles/Vol] 16 mmol/L Normal 7-17 [facility] Comment on above: Performed By: #### N ONGNAURELIANONA #### [facility] (DEFAULT) [address] [address] Chloride [Moles/Vol] 104 mmol/L Normal 98-108 [facility] Comment on above: Performed By: #### N ONGNAURELIANONA #### [facility] (DEFAULT) [address] [address] CO2 [Moles/Vol] 18 mmol/L Low 21-31 [facility] Comment on above: Performed By: #### N ONGNGRAEMEFNA #### [facility] (DEFAULT) [address] [address] Creatinine [Mass/Vol] 1.22 mg/dL Normal 0.70-1.30 [facility] Comment on above: Performed By: #### N ONGNNONFNA #### [facility] (DEFAULT) [address] [address] GFR/1.73 sq M.predicted among non-blacks MDRD (S/P/Bld) [Vol rate/Area] 71 mL/min/{1.73_m2} Normal >=60 [facility] Comment on above: Result Comment: Repo rted eGFR is based on the CKD-EPI 2020 equation using creatinine, age, and sex. Performed By: #### N ONGNGRAEMEFNA #### [facility] (DEFAULT) [address] [place] [address] Glucose [Mass/Vol] 124 mg/dL High 70-99 [facility] Comment on above: Performed By: #### N ONGNNONFNA #### [facility] (DEFAULT) [address] [place] [address] Osmolality [Osmolality] 284 mosm/kg Normal 278-305 [facility] Comment on above: Performed By: #### N ONGNGRAEMEFNA #### [facility] (DEFAULT) [address] [place] [address] Potassium [Moles/Vol] 3.9 mmol/L Normal 3.5-5.0 [facility] Comment on above: Performed By: #### N ONGNNONFNA #### [facility] (DEFAULT) [address] [place] [address] Sodium [Moles/Vol] 134 mmol/L Low 135-145 [facility] Comment on above: Performed By: #### N ONGNNONFNA #### [facility] (DEFAULT) [address] [place] [address] Urea nitrogen [Mass/Vol] 15 mg/dL Normal 7-25 [facility] Comment on above: Performed By: #### N ONGNNONFNA #### [facility] (DEFAULT) [address] [place] [address] Urea nitrogen/Creatinine [Mass ratio] 12 mg/mg Normal [facility] Comment on above: Performed By: #### N ONGNNONFNA #### [facility] (DEFAULT) [address] [place] [address] Anion gap [Moles/Vol] 16 mmol/L 7 - 17 mmol/L [facility] Chloride [Moles/Vol] 104 mmol/L 98 - 10 8 mmol/L [facility] CO2 [Moles/Vol] 18 mmol/L Low 21 - 31 mmol/L [facility] Creatinine [Mass/Vol] 1.22 mg/dL 0.70 - 1.30 mg/dL [facility] eGFR, CKD-EPI, Male 72 - PINF [facility] Glucose [Mass/Vol] 124 mg/dL High 70 - 99 mg/dL [facility] Osmolality Calc [Osmolality] 284 [facility] Potassium [Moles/Vol] 3.9 mmol/L 3.5 - 5.0 mmol/L [facility] Sodium [Moles/Vol] 134 mmol/L Low 135 - 145 mmol/L [facility] Urea nitrogen [Mass/Vol] 15 mg/dL 7 - 25 mg/dL [facility] Urea nitrogen/Creatinine [Mass ratio] 12 mg/mg [facility] CMV PCR,FLUIDS,URINE,EYE ETC on 09-04-2023 Specimen source Nom (Unsp spec) BAL LLL [facility] Specimen source Nom (Unsp spec) BAL RML [facility] HEPATIC FUNCTION PANELon Albumin [Mass/Vol] 3.0 g/dL Low 3.5-5.0 [facility] Comment on above: Performed By: #### N ONGNNONFNA #### [facility] (DEFAULT) [address] [place] [address] ALP [Catalytic activity/Vol] 112 U/L Normal 32-126 [facility] Comment on above: Performed By: #### N ONGNNONFNA #### [facility] (DEFAULT) [address] [place] [address] ALT [Catalytic activity/Vol] 22 U/L Normal 10-52 [facility] Comment on above: Performed By: #### N ONGNNONFNA #### [facility] (DEFAULT) [address] [place] [address] AST [Catalytic activity/Vol] 30 U/L Normal 10-39 [facility] Comment on above: Performed By: #### N ONGNNONFNA #### [facility] (DEFAULT) [address] [place] [address] Bilirubin [Mass/Vol] 1.2 mg/dL Normal <1.5 [facility] Comment on above: Performed By: #### N ONGNNONFNA #### [facility] (DEFAULT) [address] [place] [address] Bilirubin.indirect [Mass/Vol] 0.4 mg/dL High <0.3 [facility] Comment on above: Performed By: #### N ONGNNONFNA #### [facility] (DEFAULT) [address] [place] [address] Protein [Mass/Vol] 6.4 g/dL Normal 6.4-8.3 [facility] Comment on above: Performed By: #### N ONGNNONFNA #### [facility] (DEFAULT) [address] [place] [address] Albumin [Mass/Vol] 3.0 g/dL Low 3.5 - 5.0 g/dL [facility] ALP [Catalytic activity/Vol] 112 U/L 32 - 126 U/L [facility] ALT [Catalytic activity/Vol] 22 U/L 10 - 52 U/L [facility] AST [Catalytic activity/Vol] 30 U/L 10 - 39 U/L [facility] Bilirubin [Mass/Vol] 1.2 mg/dL NINF - 1.5 mg/dL [facility] Bilirubin.direct [Mass/Vol] 0.4 mg/dL High NINF - 0.3 mg/dL [facility] Protein [Mass/Vol] 6.4 g/dL 6.4 - 8.3 g/dL [facility] LEGIONELLA PCRon 09-04-2023 Legionella sp rRNA Probe Ql (Unsp spec) Negative Not Applicable [facility] Specimen source Nom (Unsp spec) BAL [facility] Antimicrobial susceptibilityon 09-04-2023 CMV DNA ESTELITA+probe Ql (Unsp spec) Negative Negative [facility] MAGNESIUMon 09-04-2023 Magnesium [Mass/Vol] 1.4 mg/dL Low 1.6-2.6 [facility] Comment on above: Performed By: #### N ONGNNONFNA #### [facility] (DEFAULT) [address] [place] [address] Magnesium [Mass/Vol] 1.4 mg/dL Low 1.6 - 2 .6 mg/dL [facility] No Panel Informationon 09-04 Annotation comment [Interpretation] Narrative DNR [facility] PN Report Status DNR [facility] Pneumocystis jiroveci,PCR result Negative Not Applicable [facility] Interpretation and review of laboratory results Abnormal [facility] PNEUMOCYSTIS JIROVECI,PCRon 09-04-2023 Specimen source Nom (Unsp spec) BAL LLL [facility] Specimen source Nom (Unsp spec) BAL RML [facility] Portable XR Chest Viewson RADIOLOGY RADIOLOGY [facility] Radiology Study observation (narrative) [facility] Portable XR Chest ViewsOrder ed By: Joanie Nugent on 09-04-2023 [facility] Work Phone: TACROLIMUS LEVEL, TROUGH ([place] E DRUG LEVEL)on 09-04-2023 Interpretation and review of laboratory results Abnormal [facility] Tacrolimus (Bld) [Mass/Vol] 3.6 ng/mL Low [facility] Tacrolimus, Trough 3.6 ng/mL Low Bone Susana ow Transplant: 4.0-12.0, Therapeutic: 5.0-15.0 [facility] Comment on above: Order Comment: Pleas e draw at specified interval PRIOR to dose. Do not hold dose to wait for level. Specimens batched twice per day, (M-F) and once per day weekends Method performed is a chemiluminescent microparticle immunoasssay on the [employer] i2000. The range is based on experience at [facility] and users should be aware that target concentrations vary widely depending on concomitant therapy, time post-transplant, and desired degree of immunosuppression. Performed By: #### T ACRO #### [facility] (DEFAULT) [address] [place], [place] [address] XR CHEST PORTABLEon 09-04-20 XR CHEST PORTABLE [...] the left lung likely infectious/inflammatory process. Normal [facility] ASPERGILLUS ANTIGEN, BALon 1 Galactomannan Ag IA Qn (Unsp spec) <0.500 [facility] Galactomannan Ag IA Qn (Unsp spec) <0.500 [facility] BAL CONSULTOrdered By: Noa Peralta on 09-03-2023 ALVEOLAR MACROPHAGES 32 % [facility] Work Phone: Bal comments Correlation with microbiology stains and cultures is recommended. [facility] Work Phone: Bal Diff Quik Stain Quality Check Acceptable [facility] Work Phone: BKR BAL INTERPRETATION Cellular specimen comprised of alveolar macrophages and small lymphocytes. No definitive microorganisms are observed. Moderate degenerative changes. [facility] Work Phone: BKR DX CODE Use Ordering [facility] Work Phone: Eosinophils Patterson stain Ql (Unsp spec) 0 % [facility] Work Phone: Lymphocytes/100 WBC (Bld) 57 % [facility] Work Phone: Neutrophils/100 WBC Manual cnt (Bronch spec) 11 % [facility] Work Phone: Pathologist review Jame (Unsp spec) [Interp] Leonardo Peralta MD [facility] Work Phone: [facility] Work Phone: BAL CONSULTon 09-03-2023 ALVEOLAR MACROPHAGES 33 % [facility] Bal comments Correlation with microbiology stains and cultures is recommended. Correlation with viral studies is recommended. [facility] Bal Diff Quik Stain Quality Check Acceptable [facility] BKR BAL INTERPRETATION Cellular specimen comprised of alveolar macrophages and small lymphocytes. No definitive microorganisms are observed. Rare degenerating cells with changes suggestive of viral cytopathic effect are noted. Moderate degenerative changes. [facility] BKR DX CODE Use Ordering [facility] Eosinophils Patterson stain Ql (Unsp spec) 0 % [facility] Lymphocytes/100 WBC (Bld) 49 % [facility] Neutrophils/100 WBC Manual cnt (Bronch spec) 18 % [facility] Pathologist review Jame (Unsp spec) [Interp] Leonardo Peralta MD [facility] BRONCHOSCOPYon 09-03-2023 LAB, [facility] CBC,PLATELETSon 09-03-2023 Hematocrit (Bld) [Volume fraction] 39.6 % Normal 39.6-48.8 [facility] Comment on above: Performed By: #### T ACRO #### [facility] (DEFAULT) [address] [address] Hemoglobin (Bld) [Mass/Vol] 12.8 g/dL Low 13.4-16.8 [facility] Comment on above: Performed By: #### T ACRO #### [facility] (DEFAULT) [address] [place] [address] MCV (RBC) [Entitic vol] 85.9 fL Normal 79.0-94.5 [facility] Comment on above: Performed By: #### T ACRO #### [facility] (DEFAULT) [address] [place] [address] Mean Cell Hgb 27.8 pg Normal 26.1-33.3 [facility] Comment on above: Performed By: #### T ACRO #### [facility] (DEFAULT) [address] [address] Mean Cell Hgb Conc 32.3 g/dL Normal 31.9-36.5 [facility] Comment on above: Performed By: #### T ACRO #### [facility] (DEFAULT) [address] [place] [address] Platelet mean volume (Bld) [Entitic vol] 9.4 fL Normal 8.7-12.3 [facility] Comment on above: Performed By: #### T ACRO #### [facility] (DEFAULT) [address] [address] Platelets (Bld) [#/Vol] 222 10*3/uL Normal 146-337 [facility] Comment on above: Performed By: #### T ACRO #### [facility] (DEFAULT) [address] [place] [address] RBC (Bld) [#/Vol] 4.61 10*6/uL Normal 4.38-5.83 [facility] Comment on above: Performed By: #### T ACRO #### [facility] (DEFAULT) [address] [address] RBC Distribution 13.4 % Normal 10.9-14.3 [facility] Comment on above: Performed By: #### T ACRO #### [facility] (DEFAULT) [address] [place] [address] WBC (Bld) [#/Vol] 4.36 10*3/uL Normal 3.73-10.10 [facility] Comment on above: Performed By: #### T ACRO #### [facility] (DEFAULT) [address] [place] [address] Erythrocyte distribution width (RBC) [Ratio] 13.4 % 10.9 - 14.3 % [facility] Hematocrit (Bld) [Volume fraction] 39.6 % 39.6 - 48.8 % [facility] Hemoglobin (Bld) [Mass/Vol] 12.8 g/dL Low 13.4 - 16.8 g/dL [facility] Interpretation and review of laboratory results Abnormal [facility] MCH (RBC) [Entitic mass] 27.8 pg 26.1 - 33.3 pg [facility] MCHC (RBC) [Mass/Vol] 32.3 g/dL 31.9 - 36.5 g/dL [facility] MCV (RBC) [Entitic vol] 85.9 fL 79.0 - 94.5 fL [facility] Platelet mean volume (Bld) [Entitic vol] 9.4 fL 8.7 - 12.3 fL [facility] Platelets (Bld) [#/Vol] 222 10*3/uL 146 - 337 K/uL [facility] RBC (Bld) [#/Vol] 4.61 10*6/uL [facility] WBC (Bld) [#/Vol] 4.36 10*3/uL 3.73 - 10. 10 K/uL [facility] CHEM 7 (LYTES,BUN,CREA,GLUC) on 09-03-2023 Anion gap [Moles/Vol] 12 mmol/L Normal 7-17 [facility] Comment on above: Performed By: #### L EGN #### [facility] (DEFAULT) [address] [place] [address] Chloride [Moles/Vol] 104 mmol/L Normal 98-108 [facility] Comment on above: Performed By: #### L EGN #### [facility] (DEFAULT) [address] [place] [address] CO2 [Moles/Vol] 24 mmol/L Normal 21-31 [facility] Comment on above: Performed By: #### L EGN #### [facility] (DEFAULT) [address] [place] [address] Creatinine [Mass/Vol] 1.20 mg/dL Normal 0.70-1.30 [facility] Comment on above: Performed By: #### L EGN #### [facility] (DEFAULT) [address] [address] GFR/1.73 sq M.predicted among non-blacks MDRD (S/P/Bld) [Vol rate/Area] 73 mL/min/{1.73_m2} Normal >=60 [facility] Comment on above: Result Comment: Repo rted eGFR is based on the CKD-EPI 2020 equation using creatinine, age, and sex. Performed By: #### L EGN #### [facility] (DEFAULT) [address] [address] Glucose [Mass/Vol] 112 mg/dL High 70-99 [facility] Comment on above: Performed By: #### L EGN #### [facility] (DEFAULT) [address] [address] Osmolality [Osmolality] 288 mosm/kg Normal 278-305 [facility] Comment on above: Performed By: #### L EGN #### [facility] (DEFAULT) [address] [address] Potassium [Moles/Vol] 4.1 mmol/L Normal 3.5-5.0 [facility] Comment on above: Performed By: #### L EGN #### [facility] (DEFAULT) [address] [place] [address] Sodium [Moles/Vol] 136 mmol/L Normal 135-145 [facility] Comment on above: Performed By: #### L EGN #### [facility] (DEFAULT) [address] [place] [address] Urea nitrogen [Mass/Vol] 17 mg/dL Normal 7-25 [facility] Comment on above: Performed By: #### L EGN #### [facility] (DEFAULT) [address] [place] [address] Urea nitrogen/Creatinine [Mass ratio] 14 mg/mg Normal [facility] Comment on above: Performed By: #### L EGN #### [facility] (DEFAULT) [address] [place] [address] Anion gap [Moles/Vol] 12 mmol/L 7 - 17 mmol/L [facility] Chloride [Moles/Vol] 104 mmol/L 98 - 10 8 mmol/L [facility] CO2 [Moles/Vol] 24 mmol/L 21 - 31 mmol/L [facility] Creatinine [Mass/Vol] 1.20 mg/dL 0.70 - 1.30 mg/dL [facility] eGFR, CKD-EPI, Male 74 - PINF [facility] Glucose [Mass/Vol] 112 mg/dL High 70 - 99 mg/dL [facility] Osmolality Calc [Osmolality] 288 [facility] Potassium [Moles/Vol] 4.1 mmol/L 3.5 - 5.0 mmol/L [facility] Sodium [Moles/Vol] 136 mmol/L 135 - 145 mmol/L [facility] Urea nitrogen [Mass/Vol] 17 mg/dL 7 - 25 mg/dL [facility] Urea nitrogen/Creatinine [Mass ratio] 14 mg/mg [facility] CYTOLOGY, NON-GYNOrdered By: Sherice Jimenez on 09-03-2023 CYTOLOGIC DIAGNOSIS d8pijXJlFRCilINuZQVbR0i wldNzEXNkeOQqE9IncpgkPE ngJZ4iXO4okSfozHGtbJQwO VPhJpKcs8sos296jNSqe9hb WTUQwsyhtAx4j8uzHPHOxJ2 eg3v7aW89GUPagB3kwFNrQX uoiuImDJjkjpRnrqTtPqh7Z WB5sFnfJfzzdMH6iUSvpSF8 OZkhx0SodPhnvTpqLXR9EBO vRifbRBcmgKL9kADoqSkmvL AmIV2ul0ckhUF0qjVgBOI8s WsgmCG6aHtvihawh8lyqBW0 zSA4HPjdtMC0DHrwPjCbI3v nOAXurQ4tV16zY3grZFXfmG rtJGjgOFEbwRD5VTX6QMFrw 1xsZXZlbHRleHRcJzAxXCdi Cjc0j0yyQVTvqV41rNEfdgP 4iPhsHYxxqYE2AQ10ARexp1 YnAWXiuIntRZKypI4gEgVhZ GxldmVsbmZjbjIzXGxldmVs neLiNLwfuyPnb2LiagJqiQB 3YWpttnBrxHB1qJgyQKZhZ9 C7X928QGbwghYmnoBwHlCbk bb0QUKbtPuloMegdHehaqPx XRvnjmHqthVlCzOmoTB5CJk bMeGsPxCtkRC8FXqgZrSwtS U4DDdtyHIeaRP3VEjqoXT8O De9TBt6LCxrBYroTeu1yTck wIQ5TVivmK6eDSStP27zJxC 3z9pujXM3wPI9HNlscZI2OY byGiBrY5ovNAFzyG8dG44iT 7lhNHNejLqmQLprPQRriFT0 QDD5BNOle8vbJGMkkKEyiAE wSxVmNTywXya1k1xiSTJjjE 58jJKnqpO1xAefUX51OEpjh 1MrTVYkyPpxGXXvmK9xGsPv XGxldmVsbmZjbjIzXGxldmV iaaFdVJmucpYyf7ZspxBacL Q3VTbnayGgpXF6gWbjQZYjV 0C2P150FLvcgiLvdpReFtIz nqj3JREjjHtfuHznwPbbeoC qCMzevuTcvlHlTeJrrPT8MT ncXhVeBfObyCF4CTofMbEfm LZ7TFmgpFXwrWS8KQqiuHQ8 QYv4UGx4SQiuTNgzWqd1oYo pyJM9JRuqwA8qINJjH66kUy B7b4ggcRZ3qWQ7GDhaiJJ0Y ZwnQsWnN2ooETKicH4bA05i Z8deAIDvhFqzICikSWZkuYL 2JDS8GMXcd0zwHXHstKTsdV SzHrWsYIwpXta1i7baANXiq I38mAElouO7rVzqNW70MNmt f1NbAWBbvMbzELTxxI0oAaA zXGxldmVsbmZjbjIzXGxldm MtvnQaBGgszsByq0JfmvNew PO3QAruzwJrpIR3qJtiHXWg D1L4M133ZCbzhtPubhBuCqS rtyo6PFBvnAcwyJptkLfbeh IuUCyqbvDaegEcQeZfvMS9K VhyUzEsRpYozBN1EFfmRgRs tJC8MQjuxPExxZI8HRgsrAA 1KPx6OHf9LVbqDXxeCgh4rQ wvaKP9HTypoX8bBBNfV80qB lB1wG32PKxztEeouP94IUYx yWDcgUDihVV9ULgriOcpuF9 0MYZleXNnIFufk4WcIKZmFa I1CLV4YHXlzPngwE85UGUbb XKaF734saQbNRvnSY89KPZj cGVydzEyMjQwXHBhcGVyaDE 9SKVbGB0xyvenIVmrTUwhBU OpkdF5OHCpzXNxW4GmLPOpE L5zyzrmDKQ0ZCgmRWPpZTH0 SsFrNVVob1Eldws2ViOgmVu 1q3jwZBYwUZHbjNyea7akIQ Z6ANUxuHHvU1wqkT0kDWGqQ N9jxhyho8iePDnmUDejKDVi mNI3cuW8KRLmaXBqR9ZnfO9 vHDYjSZRproJtoPhqhJ6fFt qpqaJyDLFyRFMDEyVKQe2XP 2qRZLxQNW2BHUXrUTVHVCnO CULSDVYPLZsAP2GDCTzCEyT wWKDlLZBcP8xKU7pZZ7cfHi yrSaJeDHoqOUHvFqHwS5QtI HFccgdtSNHhRGTIBO3AYSXI EDPMJv1KDUN0XQTwqiblfVG 2PQstyjYiwOq1pAZitNlkaL 5cYlxmczIyXGNmMSBObyBNY JzlZ15wjsGiU1JndNHmFFUk ONwrDM74uMOuOJBmtQOvZZv 8mF0aSFabeYeyomXRrGIjjV 1lblxiMFxjZjBccGFyXGxpM FxsczBccGFyfQ== [facility] Work Phone: Case Report [facility] Work Phone: Clinical History k0lefUDmLUFyuGUbDIHk M1x nugQsYRHjpPPyM7LrpoknVN fkDF9jRH1ciBdjtFKpmQWdT DGiAjZtt5kui527cUSjs2xo IBJJgctvwOd5eOfpT64qn4O 7UoaxX7alSQSxARlmPKIpQQ rynYQnBBb0ZRKqwHMxpxBuI hOoBELzhCImwXZ2CRCvJH6t zdarRIuoCYkhIVSztbX0URY wtXAuN3NwZSFuBN3bmuddDV N8KRexBUVeIQV2EzMfNZQiq 0Gvwyy2UcFpfDh9a9stYIVg QJIiwHlbg7utWUO9BCWjaFD tB6euvL5dVMIuTQ2mjrgmp5 dsHJhmKCuxMYVonOR1nwM2Y HWrvANrV4LpxJ4fOJUeLACm szPcgTigcX8tKsLhRAofMmY gUmVuYWwgdHJhbnNwbGFudC 7jKGGfyq5= [facility] Work Phone: For Immediate Release to [facility]? Yes Yes [facility] Work Phone: Gross Description p6cykOPbGLMkwRUaPMGt M1x pmzAuPEQfbWXuY3HjbsbeMU obVG5yKZ4seUgoqDIcwAKiN RCnArHhr2usf719gSWjj3zm NMVVgtnkbOa8aKymK95sf1N 7WoodD28pwQJjACZ3YPCvBU EotZFbGZSkZLF7MDHslPDrX 2jgVFIrQE7ftupxWOxbQHnn OJChtJY7OEBtaGPiD0DgWRU jARgnQZZgmsl5QdDtWt0qbS VyeTcyMFxwYXJkXHBsYWluX GZzMjAgTExMIEJBTFxwYXIg ORRfrPSwDXm8DWFkiC8mrWY cqjZdrSPacD4lpRyyOAvbQC IgMSBUUCBzbGlkZSBQYXAgc 3XplB5yjBXeRXKzalMijOCp XHBhcn0= [facility] Work Phone: [facility] Work Phone: HEPATIC FUNCTION PANELon Albumin [Mass/Vol] 3.2 g/dL Low 3.5-5.0 [facility] Comment on above: Performed By: #### L EGN #### [facility] (DEFAULT) [address] [place] [id number] ALP [Catalytic activity/Vol] 118 U/L Normal 32-126 [facility] Comment on above: Performed By: #### L EGN #### [facility] (DEFAULT) [address] [place] [address] ALT [Catalytic activity/Vol] 25 U/L Normal 10-52 [facility] Comment on above: Performed By: #### L EGN #### [facility] (DEFAULT) [address] [place] [id number] AST [Catalytic activity/Vol] 32 U/L Normal 10-39 [facility] Comment on above: Performed By: #### L EGN #### [facility] (DEFAULT) [address] [place] [id number] Bilirubin [Mass/Vol] 1.0 mg/dL Normal <1.5 [facility] Comment on above: Performed By: #### L EGN #### [facility] (DEFAULT) [address] [place] [address] Bilirubin.indirect [Mass/Vol] 0.3 mg/dL High <0.3 [facility] Comment on above: Performed By: #### L EGN #### [facility] (DEFAULT) [address] [place] [address] Protein [Mass/Vol] 6.5 g/dL Normal 6.4-8.3 [facility] Comment on above: Performed By: #### L EGN #### [facility] (DEFAULT) [address] [place] [address] 5[address]38 Albumin [Mass/Vol] 3.2 g/dL Low 3.5 - 5.0 g/dL [facility] ALP [Catalytic activity/Vol] 118 U/L 32 - 126 U/L [facility] ALT [Catalytic activity/Vol] 25 U/L 10 - 52 U/L [facility] AST [Catalytic activity/Vol] 32 U/L 10 - 39 U/L [facility] Bilirubin [Mass/Vol] 1.0 mg/dL NINF - 1.5 mg/dL [facility] Bilirubin.direct [Mass/Vol] 0.3 mg/dL High NINF - 0.3 mg/dL [facility] Protein [Mass/Vol] 6.5 g/dL 6.4 - 8.3 g/dL [facility] HISTOPLASMA AND BLASTOMYCES ANTIGEN, ENZYME IMMUNOASSAY, SERMon 09-03-2023 Histoplasma/Blastomyc es Ag Result Detected Critically abnormal Not Detected [facility] Histoplasma/Blastomyc es Ag Value 5.3 ng/mL [facility] Interpretation and review of laboratory results Abnormal [facility] IMMUNOPHENOTYPING, TISSUE/FL UIDon 09-03-2023 BKR DX CODE Use Ordering Normal [facility] Comment on above: Order Comment: Pleas e draw at specified interval PRIOR to dose. Do not hold dose to wait for level. Specimens batched twice per day, (M-F) and once per day weekends Method performed is a chemiluminescent microparticle immunoasssay on the [employer] Super[employer] i2000. The range is based on experience at [facility] and users should be aware that target concentrations vary widely depending on concomitant therapy, time post-transplant, and desired degree of immunosuppression. Performed By: #### T ACRO #### [facility] (DEFAULT) [address] [place] [address] Flow Interpretation See Comment Normal [facility] Comment on above: Order Comment: Pleas e draw at specified interval PRIOR to dose. Do not hold dose to wait for level. Specimens batched twice per day, (M-F) and once per day weekends Method performed is a chemiluminescent microparticle immunoasssay on the [employer] Supervisor i2000. The range is based on experience at [facility] and users should be aware that target concentrations vary widely depending on concomitant therapy, time post-transplant, and desired degree of immunosuppression. Performed By: #### T ACRO #### [facility] (DEFAULT) [address] [place] [address] Flow Interpreted by: Yossi Perla MD, PhD Normal [facility] Comment on above: Order Comment: Pleas e draw at specified interval PRIOR to dose. Do not hold dose to wait for level. Specimens batched twice per day, (M-F) and once per day weekends Method performed is a chemiluminescent microparticle immunoasssay on the [employer] Supervisor i2000. The range is based on experience at [facility] and users should be aware that target concentrations vary widely depending on concomitant therapy, time post-transplant, and desired degree of immunosuppression. Performed By: #### T ACRO #### [facility] (DEFAULT) [address] [place] [address] MAGNESIUMon 09-03-2023 Magnesium [Mass/Vol] 1.6 mg/dL Normal 1.6-2.6 [facility] Comment on above: Performed By: #### T ACRO #### [facility] (DEFAULT) [address] [place] [address] Interpretation and review of laboratory results Normal [facility] Magnesium [Mass/Vol] 1.6 mg/dL 1.6 - 2 .6 mg/dL [facility] No Panel Informationon 09-03 Interpretation and review of laboratory results Abnormal [facility] PARVOVIRUS (B19) DNA, PCR, B LOODon 09-03-2023 PARVOVIRUS B19 BY RAPID PCR Not detected Not Detected [facility] TX SPEC SOURCE Whole Blood [facility] Portable XR Chest Viewson RADIOLOGY RADIOLOGY [facility] Radiology Study observation (narrative) [facility] Portable XR Chest ViewsOrder ed By: Lester [place] on 09-03-2023 [facility] Work Phone: XR CHEST PORTABLEon 09-03-20 [...] have reviewed and approved this report. Normal [facility] ACID FAST CULTUREon 09-02-20 23 Bacteria identified Cx Nom (Unsp spec) NO GROWTH DAY 42 OF 42 Normal [facility] Comment on above: Performed By: #### H EMOGC #### [facility] (DEFAULT) [address] [address] Fluorochrome Stain No acid Fast Bacillu s Seen Normal [facility] Comment on above: Performed By: #### H EMOGC #### [facility] (DEFAULT) [address] [address] Bacteria identified Cx Nom (Unsp spec) NO GROWTH DAY 42 OF 42 Normal [facility] Comment on above: Order Comment: Pleas e draw at specified interval PRIOR to dose. Do not hold dose to wait for level. Specimens batched twice per day, (M-F) and once per day weekends Method performed is a chemiluminescent microparticle immunoasssay on the [employer] i2000. The range is based on experience at [facility] and users should be aware that target concentrations vary widely depending on concomitant therapy, time post-transplant, and desired degree of immunosuppression. Performed By: #### T ACRO #### [facility] (DEFAULT) [address] [address] Fluorochrome Stain No acid Fast Bacillu s Seen Normal [facility] Comment on above: Order Comment: Pleas e draw at specified interval PRIOR to dose. Do not hold dose to wait for level. Specimens batched twice per day, (M-F) and once per day weekends Method performed is a chemiluminescent microparticle immunoasssay on the [employer] i2000. The range is based on experience at [facility] and users should be aware that target concentrations vary widely depending on concomitant therapy, time post-transplant, and desired degree of immunosuppression. Performed By: #### T ACRO #### [facility] (DEFAULT) [address] [place] [address] ASPERGILLUS (GALACTOMANNAN), ANTIGENon 09-02-2023 Galactomannan Ag IA Qn <0.500 NINF [facility] ASPERGILLUS ANTIGEN, BALon 1 Aspergillus Galactomannan Antigen, BAL <0.500 Normal <0.5 [facility] Comment on above: Result Comment: ADDITIONAL INFORMATION This is a qualitative test and the resulted index value is not indicative of disease severity. Serial testing is recommended for patients at high risk for invasive aspergillosis. This assay was performed using the FDA-cleared [employer] Platelia Aspergillus Galactomannan EIA. Test Performed by: [place] [address] Manager Documentation: Rosendo Bose M.D. Ph.D.; CLIA# [id number] Performed By: #### T ACRO #### [facility] (DEFAULT) [address] [place] [address] Aspergillus Galactomannan Antigen, BAL <0.500 Normal <0.5 [facility] Comment on above: Order Comment: Pleas e draw at specified interval PRIOR to dose. Do not hold dose to wait for level. Specimens batched twice per day, (M-F) and once per day weekends Method performed is a chemiluminescent microparticle immunoasssay on the [employer] Supervisor i2000. The range is based on experience [...] This assay was performed using the FDA-cleared [employer] Platelia Aspergillus Galactomannan EIA. Test Performed by: [facility] [address] [place] [address] Manager Documentation: Rosendo Bose M.D. Ph.D.; CLIA# [id number] Performed By: #### T ACRO #### [facility] (DEFAULT) [address] [place] [address] ATYPICAL BACTERIAL PNEUMONIA ,PCROrdered By: Shari Contreras on 09-02-2023 B. parapertussis DNA ESTELITA+probe Ql (Unsp spec) Not detected Not Detected [facility] B. pertussis DNA ESTELITA+probe Ql (Unsp spec) Not detected Not Detected [facility] C. pneumoniae DNA ESTELITA+probe Ql (Unsp spec) Not detected Not Detected [facility] Interpretation and review of laboratory results Normal [facility] M. pneumoniae DNA ESTELITA+probe Ql (Unsp spec) Not detected Not Detected [facility] ATYPICAL BACTERIAL PNEUMONIA ,PCRon 09-02-2023 Bordetella Parapertussis Not detected Normal Not Detected [facility] Comment on above: Order Comment: Viral [...] by [facility]. It has not been cleared or approved by the FDA. The laboratory is required under CLIA as qualified to perform high-complexity testing. This test is used for clinical purposes. It should not be regarded as investigational or for research. Performed By: #### H [facility] #### [facility] (DEFAULT) [address] [address] Bordetella Pertussis Not detected Normal Not Detected [facility] Comment on above: Order Comment: Viral [...] by [facility]. It has not been cleared or approved by the FDA. The laboratory is required under CLIA as qualified to perform high-complexity testing. This test is used for clinical purposes. It should not be regarded as investigational or for research. Performed By: #### H [facility] #### [facility] (DEFAULT) [address] [address] Chlamydia Pneumoniae Not detected Normal Not Detected [facility] Comment on above: Order Comment: Viral [...] by [facility]. It has not been cleared or approved by the FDA. The laboratory is required under CLIA as qualified to perform high-complexity testing. This test is used for clinical purposes. It should not be regarded as investigational or for research. Performed By: #### H [facility] #### [facility] (DEFAULT) [address] [address] Mycoplasma Pneumoniae Not detected Normal Not Detected [facility] Comment on above: Order Comment: Viral [...] by [facility]. It has not been cleared or approved by the FDA. The laboratory is required under CLIA as qualified to perform high-complexity testing. This test is used for clinical purposes. It should not be regarded as investigational or for research. Performed By: #### H EMOGC #### [facility] (DEFAULT) [address] [address] BAL CONSULTon 09-02-2023 ALVEOLAR MACROPHAGES 33 % Normal [facility] Comment on above: Order Comment: BAL c onsultIf > 15% lymphocytes - please send for flow. Performed By: #### H EMOGC #### [facility] (DEFAULT) [address] [address] Bal comments Correlation with microbiology stains and cultures is recommended. Correlation with viral studies is recommended. Normal [facility] Comment on above: Order Comment: BAL c onsultIf > 15% lymphocytes - please send for flow. Performed By: #### H EMOGC #### [facility] (DEFAULT) [address] [address] Bal Diff Quik Stain Quality Check Acceptable Normal [facility] Comment on above: Order Comment: BAL c onsultIf > 15% lymphocytes - please send for flow. Performed By: #### H EMOGC #### [facility] (DEFAULT) [address] [address] Bal Reviewed By: Leonardo Peralta MD [facility] Comment on above: Order Comment: BAL c onsultIf > 15% lymphocytes - please send for flow. Performed By: #### H EMOGC #### [facility] (DEFAULT) [address] [address] BKR BAL INTERPRETATION Cellular specimen comprised of alveolar macrophages and small lymphocytes. No definitive microorganisms are observed. Rare degenerating cells with changes suggestive of viral cytopathic effect are noted. Moderate degenerative changes. Normal [facility] Comment on above: Order Comment: BAL c onsultIf > 15% lymphocytes - please send for flow. Performed By: #### H EMOGC #### [facility] (DEFAULT) [address] [place] [address] BKR DX CODE Use Ordering Normal [facility] Comment on above: Order Comment: BAL c onsultIf > 15% lymphocytes - please send for flow. Performed By: #### H EMOGC #### [facility] (DEFAULT) [address] [place] [address] Eosinophils/100 WBC (Bld) 0 % Normal [facility] Comment on above: Order Comment: BAL c onsultIf > 15% lymphocytes - please send for flow. Performed By: #### H EMOGC #### [facility] (DEFAULT) [address] [place] [address] Lymphocytes/100 WBC (Bld) 49 % Normal [facility] Comment on above: Order Comment: BAL c onsultIf > 15% lymphocytes - please send for flow. Performed By: #### H EMOGC #### [facility] (DEFAULT) [address] [place] [address] Neutrophils/100 WBC (Bld) 18 % Normal [facility] Comment on above: Order Comment: BAL c onsultIf > 15% lymphocytes - please send for flow. Performed By: #### H EMOGC #### [facility] (DEFAULT) [address] [place] [address] ALVEOLAR MACROPHAGES 32 % Normal [facility] Comment on above: Order Comment: BAL c onsult for cell differential and pathologist review. Please do flow cytometry if > 12% lymphocytes Performed By: #### H EMOGC #### [facility] (DEFAULT) [address] [place] [address] Bal comments Correlation with microbiology stains and cultures is recommended. Normal [facility] Comment on above: Order Comment: BAL c onsult for cell differential and pathologist review. Please do flow cytometry if > 12% lymphocytes Performed By: #### H EMOGC #### [facility] (DEFAULT) [address] [address] Bal Diff Quik Stain Quality Check Acceptable [facility] Comment on above: Order Comment: BAL c onsult for cell differential and pathologist review. Please do flow cytometry if > 12% lymphocytes Performed By: #### H EMOGC #### [facility] [address] [address] Bal Reviewed By: Leonardo Peralta MD [facility] Comment on above: Order Comment: BAL c onsult for cell differential and pathologist review. Please do flow cytometry if > 12% lymphocytes Performed By: #### H EMOGC #### [facility] (DEFAULT) [address] [address] BKR BAL INTERPRETATION Cellular specimen comprised of alveolar macrophages and small lymphocytes. No definitive microorganisms are observed. Moderate degenerative changes. [facility] Comment on above: Order Comment: BAL c onsult for cell differential and pathologist review. Please do flow cytometry if > 12% lymphocytes Performed By: #### H EMOGC #### [facility] (DEFAULT) [address] [address] BKR DX CODE Use Ordering Normal [facility] Comment on above: Order Comment: BAL c onsult for cell differential and pathologist review. Please do flow cytometry if > 12% lymphocytes Performed By: #### H EMOGC #### [facility] (DEFAULT) [address] [address] Eosinophils/100 WBC (Bld) 0 % Normal [facility] Comment on above: Order Comment: BAL c onsult for cell differential and pathologist review. Please do flow cytometry if > 12% lymphocytes Performed By: #### H EMOGC #### [facility] (DEFAULT) [address] [address] Lymphocytes/100 WBC (Bld) 57 % Normal [facility] Comment on above: Order Comment: BAL c onsult for cell differential and pathologist review. Please do flow cytometry if > 12% lymphocytes Performed By: #### H EMOGC #### [facility] (DEFAULT) [address] [place] [address] Neutrophils/100 WBC (Bld) 11 % Normal [facility] Comment on above: Order Comment: CARRIE ro for cell differential and pathologist review. Please do flow cytometry if > 12% lymphocytes Performed By: #### H EMOGC #### [facility] (DEFAULT) [address] [place] [address] BRONCHOSCOPYon 09-02-2023 Radiology Study observation (narrative) [facility] Bacteria identified Cx Nom ( Bld)on 09-02-2023 Bacteria identified Cx Nom (Unsp spec) NO GROWTH DAY 5 OF 5 [facility] CBC,PLATELETSon 09-02-2023 Hematocrit (Bld) [Volume fraction] 39.9 % Normal 39.6-48.8 [facility] Comment on above: Performed By: #### H EMOGC #### [facility] (DEFAULT) [address] [place] [address] Hemoglobin (Bld) [Mass/Vol] 12.9 g/dL Low 13.4-16.8 [facility] Comment on above: Performed By: #### H EMOGC #### [facility] (DEFAULT) [address] [place] [address] MCV (RBC) [Entitic vol] 86.4 fL Normal 79.0-94.5 [facility] Comment on above: Performed By: #### H EMOGC #### [facility] (DEFAULT) [address] [place] [address] Mean Cell Hgb 27.9 pg Normal 26.1-33.3 [facility] Comment on above: Performed By: #### H EMOGC #### [facility] (DEFAULT) [address] [place] [address] Mean Cell Hgb Conc 32.3 g/dL Normal 31.9-36.5 [facility] Comment on above: Performed By: #### H EMOGC #### [facility] (DEFAULT) [address] [place] [address] Platelet mean volume (Bld) [Entitic vol] 9.5 fL Normal 8.7-12.3 [facility] Comment on above: Performed By: #### H EMO #### [facility] (DEFAULT) [address] [place] [address] Platelets (Bld) [#/Vol] 210 10*3/uL Normal 146-337 [facility] Comment on above: Performed By: #### H EMOGC #### [facility] (DEFAULT) [address] [place] [address] RBC (Bld) [#/Vol] 4.62 10*6/uL Normal 4.38-5.83 [facility] Comment on above: Performed By: #### H EMO #### [facility] (DEFAULT) [address] [place] [address] RBC Distribution 13.2 % Normal 10.9-14.3 [facility] Comment on above: Performed By: #### H EMO #### [facility] (DEFAULT) [address] [place] [address] WBC (Bld) [#/Vol] 4.12 10*3/uL Normal 3.73-10.10 [facility] Comment on above: Performed By: #### H EMOGC #### [facility] (DEFAULT) [address] [place] [address] Erythrocyte distribution width (RBC) [Ratio] 13.2 % 10.9 - 14.3 % [facility] Hematocrit (Bld) [Volume fraction] 39.9 % 39.6 - 48.8 % [facility] Hemoglobin (Bld) [Mass/Vol] 12.9 g/dL Low 13.4 - 16.8 g/dL [facility] Interpretation and review of laboratory results Abnormal [facility] MCH (RBC) [Entitic mass] 27.9 pg 26.1 - 33.3 pg [facility] MCHC (RBC) [Mass/Vol] 32.3 g/dL 31.9 - 36.5 g/dL [facility] MCV (RBC) [Entitic vol] 86.4 fL 79.0 - 94.5 fL [facility] Platelet mean volume (Bld) [Entitic vol] 9.5 fL 8.7 - 12.3 fL [facility] Platelets (Bld) [#/Vol] 210 10*3/uL 146 - 337 K/uL [facility] RBC (Bld) [#/Vol] 4.62 10*6/uL [facility] WBC (Bld) [#/Vol] 4.12 10*3/uL 3.73 - 10. 10 K/uL [facility] CHEM 7 (LYTES,BUN,CREA,GLUC) on 09-02-2023 Anion gap [Moles/Vol] 13 mmol/L Normal 7-17 [facility] Comment on above: Performed By: #### Y PNRP #### [facility] (DEFAULT) [address] [address] Chloride [Moles/Vol] 105 mmol/L Normal 98-108 [facility] Comment on above: Performed By: #### Y PNRP #### [facility] (DEFAULT) [address] [address] CO2 [Moles/Vol] 22 mmol/L Normal 21-31 [facility] Comment on above: Performed By: #### Y PNRP #### [facility] (DEFAULT) [address] [address] Creatinine [Mass/Vol] 1.25 mg/dL Normal 0.70-1.30 [facility] Comment on above: Performed By: #### Y PNRP #### [facility] (DEFAULT) [address] [address] GFR/1.73 sq M.predicted among non-blacks MDRD (S/P/Bld) [Vol rate/Area] 69 mL/min/{1.73_m2} Normal >=60 [facility] Comment on above: Result Comment: Repo rted eGFR is based on the CKD-EPI 2020 equation using creatinine, age, and sex. Performed By: #### Y PNRP #### [facility] (DEFAULT) [address] [place] [address] Glucose [Mass/Vol] 105 mg/dL High 70-99 [facility] Comment on above: Performed By: #### Y PNRP #### [facility] (DEFAULT) [address] [place] [address] Osmolality [Osmolality] 287 mosm/kg Normal 278-305 [facility] Comment on above: Performed By: #### Y PNRP #### [facility] (DEFAULT) [address] [place] [address] Potassium [Moles/Vol] 4.3 mmol/L Normal 3.5-5.0 [facility] Comment on above: Performed By: #### Y PNRP #### [facility] (DEFAULT) [address] [place] [address] Sodium [Moles/Vol] 136 mmol/L Normal 135-145 [facility] Comment on above: Performed By: #### Y PNRP #### [facility] (DEFAULT) [address] [place] [address] Urea nitrogen [Mass/Vol] 16 mg/dL Normal 7-25 [facility] Comment on above: Performed By: #### Y PNRP #### [facility] (DEFAULT) [address] [place] [address] Urea nitrogen/Creatinine [Mass ratio] 13 mg/mg Normal [facility] Comment on above: Performed By: #### Y PNRP #### [facility] (DEFAULT) [address] [place] [address] Anion gap [Moles/Vol] 13 mmol/L 7 - 17 mmol/L [facility] Chloride [Moles/Vol] 105 mmol/L 98 - 10 8 mmol/L [facility] CO2 [Moles/Vol] 22 mmol/L 21 - 31 mmol/L [facility] Creatinine [Mass/Vol] 1.25 mg/dL 0.70 - 1.30 mg/dL [facility] eGFR, CKD-EPI, Male 69 - [facility] Glucose [Mass/Vol] 105 mg/dL High 70 - 99 mg/dL [facility] Osmolality Calc [Osmolality] 287 [facility] Potassium [Moles/Vol] 4.3 mmol/L 3.5 - 5.0 mmol/L [facility] Sodium [Moles/Vol] 136 mmol/L 135 - 145 mmol/L [facility] Urea nitrogen [Mass/Vol] 16 mg/dL 7 - 25 mg/dL [facility] Urea nitrogen/Creatinine [Mass ratio] 13 mg/mg [facility] CMV PCR,FLUIDS,URINE,EYE ETC on 09-02-2023 CMV by PCR Result Negative Normal Negative [facility] Comment on above: Result Comment: ADDITIONAL INFORMATION This test was developed and its performance characteristics determined by [facility] in a manner consistent with CLIA requirements. This test has not been cleared or approved by the U.S. Food and Drug Administration. Test Performed by: [facility] - [address] [address] Manager Documentation: Rosendo Bose M.D. Ph.D.; CLIA# [id number] Performed By: #### T ACRO #### [facility] (DEFAULT) [address] [place] [address] CMV BY PCR SOURCE BAL RML Normal [facility] Comment on above: Performed By: #### T ACRO #### [facility] (DEFAULT) [address] [place] [address] CMV by PCR Result Negative Normal Negative [facility] Comment on above: Result Comment: ADDITIONAL INFORMATION This test was developed and its performance characteristics determined by [facility] in a manner consistent with CLIA requirements. This test has not been cleared or approved by the U.S. Food and Drug Administration. Test Performed by: [facility] - [address] [address] Manager Documentation: Rosendo Bose M.D. Ph.D.; CLIA# [id number] Performed By: #### T ACRO #### [facility] (DEFAULT) [address] [address] CMV BY PCR SOURCE BAL LLL Normal [facility] Comment on above: Performed By: #### T ACRO #### [facility] (DEFAULT) [address] [place] [address] CYTOLOGY, NON-GYNon 09-02-20 CYTOLOGIC DIAGNOSIS [facility] Comment on above: Result Comment: A. B RONCHOALVEOLAR LAVAGE, LEFT LOWER LOBE (CYTOLOGY): FINAL DIAGNOSIS: No Malignant Cells Are Identified Hypocellular Specimen Performed By: #### N ONGNGRAEMEFROBERTA #### [facility] (DEFAULT) [address] [place] [address] Case Report [facility] Comment on above: Result Comment: [facility] Cytology Report Case: [id number] Authorizing Provider: Crow Diaz MD Collected: 09/02/2023 08:38 AM Ordering Location: [facility] Received: 09/02/2023 10:44 AM Pathologist: Sherice Jimenez MD Specimen: BRONCHOALVEOLAR LAVAGE, LLL BAL Performed By: #### N LIZTY #### [facility] (DEFAULT) [address] [place] [address] Clinical History Renal transplant. Normal [facility] Comment on above: Performed By: #### N LITZY #### [facility] (DEFAULT) [address] [address] Gross Description Normal [facility] Comment on above: Result Comment: LLL BAL 1 ml hazy colorless fld unfixed 1 TP slide Pap stain For Immediate Release to Patient's MyChart? Yes Performed By: #### N ONGNNONFNA #### [facility] (DEFAULT) [address] [address] FUNGUS CULTUREon 09-02-2023 Bacteria identified Cx Nom (Unsp spec) Normal [facility] Comment on above: Order Comment: Ident ification was performed on the MALDI-TOF mass spectrometer Wellntelyper. This test was developed by [facility]. It has not been cleared or approved by the FDA. The laboratory is regulated under CLIA as qualified to perform high-complexity testing. This test is used for clinical purposes. It should not be regarded as investigational or for research. Result Comment: [employer] [facility] [place] Histoplasma capsulatum Performed By: #### H EMOGC #### [facility] (DEFAULT) [address] [address] Bacteria identified Cx Nom (Unsp spec) NO GROWTH DAY 28 OF 28 Normal [facility] Comment on above: Order Comment: Pleas e draw at specified interval PRIOR to dose. Do not hold dose to wait for level. Specimens batched twice per day, (M-) and once per day weekends Method performed is a chemiluminescent microparticle immunoasssay on the [employer] i2000. The range is based on experience at [facility] and users should be aware that target concentrations vary widely depending on concomitant therapy, time post-transplant, and desired degree of immunosuppression. Performed By: #### T ACRO #### [facility] (DEFAULT) [address] [address] HEPATIC FUNCTION PANELon Albumin [Mass/Vol] 3.2 g/dL Low 3.5-5.0 [facility] Comment on above: Performed By: #### Y PNRP #### [facility] (DEFAULT) [address] [place] [address] ALP [Catalytic activity/Vol] 107 U/L Normal 32-126 [facility] Comment on above: Performed By: #### Y PNRP #### [facility] (DEFAULT) [address] [place] [address] ALT [Catalytic activity/Vol] 20 U/L Normal 10-52 [facility] Comment on above: Performed By: #### Y PNRP #### [facility] (DEFAULT) [address] [place] [address] AST [Catalytic activity/Vol] 31 U/L Normal 10-39 [facility] Comment on above: Performed By: #### Y PNRP #### [facility] (DEFAULT) [address] [place] [address] Bilirubin [Mass/Vol] 1.0 mg/dL Normal <1.5 [facility] Comment on above: Performed By: #### Y PNRP #### [facility] (DEFAULT) [address] [place] [address] Bilirubin.indirect [Mass/Vol] 0.3 mg/dL High <0.3 [facility] Comment on above: Performed By: #### Y PNRP #### [facility] (DEFAULT) [address] [place] [address] Protein [Mass/Vol] 6.6 g/dL Normal 6.4-8.3 [facility] Comment on above: Performed By: #### Y PNRP #### [facility] (DEFAULT) [address] [place] [address] Albumin [Mass/Vol] 3.2 g/dL Low 3.5 - 5.0 g/dL [facility] ALP [Catalytic activity/Vol] 107 U/L 32 - 126 U/L [facility] ALT [Catalytic activity/Vol] 20 U/L 10 - 52 U/L [facility] AST [Catalytic activity/Vol] 31 U/L 10 - 39 U/L [facility] Bilirubin [Mass/Vol] 1.0 mg/dL NINF - 1.5 mg/dL [facility] Bilirubin.direct [Mass/Vol] 0.3 mg/dL High NINF - 0.3 mg/dL [facility] Protein [Mass/Vol] 6.6 g/dL 6.4 - 8.3 g/dL [facility] HISTOPLASMA ANTIGEN, FLUIDon 09-02-2023 FH SOURCE BAL RML Normal [facility] Comment on above: Performed By: #### T ACRO #### [facility] (DEFAULT) [address] [address] Histo FLD interpretation Negative Normal [facility] Comment on above: Result Comment: ADDITIONAL INFORMATION Reference interval: None Detected Reportable Range: Positive Results reported in ng/mL from 0.20 ng/mL to 20.00 ng/mL Positive Results above 20.00 ng/mL are reported as 'Above the Limit of Quantification' Cross-reactions occur with Blastomyces spp., Coccidioides spp., and Paracoccidioides brasiliensis. This test was developed and its performance characteristics determined by [employer]. It has not been cleared or approved by the FDA; however, FDA clearance or approval is not currently required for clinical use. The results are not intended to be used as the sole means for clinical diagnosis or patient management decisions. Test Performed by: [employer] [address] [facility] [place] [address] Performed By: #### T ACRO #### [facility] (DEFAULT) [address] [address] Histoplasma Antigen, FLUID Not detected Normal [facility] Comment on above: Performed By: #### T ACRO #### [facility] (DEFAULT) [address] [place] [address] HISTOPLASMA ANTIGEN,URINEon 09-02-2023 H. capsulatum Ag (U) [Mass/Vol] Not detected ng/mL [facility] H. capsulatum Ag IA Ql (U) Not detected Not Detected [facility] HISTOPLASMA CAPSULATUM/BLAST OMYCES SPECIES,PCR FLUIDon 09-02-2023 HISTO/BLASTO RESULT Negative Normal Not Applicable [facility] Comment on above: Result Comment: A Ne gative result from BAL fluid does not rule out the presence of Histoplasma capsulatum because the sensitivity from this source is suboptimal. ADDITIONAL INFORMATION This test was developed and its performance characteristics determined by [facility] in a manner consistent with CLIA requirements. This test has not been cleared or approved by the U.S. Food and Drug Administration. Test Performed by: [place] [address] Manager Documentation: Rosendo Bose M.D. Ph.D.; CLIA# [id number] Performed By: #### T ACRO #### [facility] (DEFAULT) [address] [address] Source BAL RML Normal [facility] Comment on above: Performed By: #### T ACRO #### [facility] (DEFAULT) [address] [address] HIV 1 AND 2 ANTIBODIES/P24 A NTIGENOrdered By: Wilma Luque on 09-02-2023 HIV 1+2 Ab+HIV1 p24 Ag IA Ql Non-Reactive Non Reactive [facility] Interpretation and review of laboratory results Normal [facility] HIV 1 AND 2 ANTIBODIES/P24 A NTIGENon 09-02-2023 HIV-1/HIV-2 Ab With p24 Antigen Non-Reactive Normal Non Reactive [facility] Comment on above: Performed By: #### L [id number] ####[facility] (DEFAULT)[address] [address] LEGIONELLA CULTUREon 023 Bacteria identified Cx Nom (Unsp spec) NO GROWTH DAY 7 OF 7 Normal [facility] Comment on above: Performed By: #### H EMO #### [facility] (DEFAULT) [address] [place] [address] Bacteria identified Cx Nom (Unsp spec) NO GROWTH DAY 7 OF 7 Normal [facility] Comment on above: Order Comment: BAL l egionella culture Performed By: #### L EGN #### [facility] (DEFAULT) [address] [place] [address] LEGIONELLA PCRon 09-02-2023 Legionella species, Culture BAL RML Normal [facility] Comment on above: Performed By: #### T ACRO #### [facility] (DEFAULT) [address] [address] Legionella, pcr result Negative Normal Not Applicable [facility] Comment on above: Result Comment: ADDITIONAL INFORMATION This test was developed and its performance characteristics determined by [facility] in a manner consistent with CLIA requirements. This test has not been cleared or approved by the U.S. Food and Drug Administration. Test Performed by: [facility] - [address] [address] Manager Documentation: Rosendo Bose M.D. Ph.D.; CLIA# [id number] Performed By: #### T ACRO #### [facility] (DEFAULT) [address] [place] [address] LOWER RESPIRATORY CULTURE, B ACTERIALon 09-02-2023 Bacteria identified Cx Nom (Unsp spec) NO GROWTH DAY 2 OF 2 Normal [facility] Comment on above: Performed By: #### T ACRO #### [facility] (DEFAULT) [address] [address] Microscopic observation Gram stain Nom (Unsp spec) Normal [facility] Comment on above: Result Comment: Cyto centrifuge preparation Neutrophils, Rare Red Blood Cells Present No organisms seen Performed By: #### T ACRO #### [facility] (DEFAULT) [address] [place] [address] Bacteria identified Cx Nom (Unsp spec) NO GROWTH DAY 2 OF 2 Normal [facility] Comment on above: Order Comment: BAL b acterial respiratory culture Performed By: #### H EMOQUINTIN #### [facility] (DEFAULT) [address] [place] [address] Microscopic observation Gram stain Nom (Unsp spec) Normal [facility] Comment on above: Order Comment: BAL b acterial respiratory culture Result Comment: Cyto centrifuge preparation Neutrophils, Moderate Red Blood Cells Present No organisms seen Performed By: #### H ADELE #### [facility] (DEFAULT) [address] [place] [address] MAGNESIUMon 09-02-2023 Magnesium [Mass/Vol] 1.7 mg/dL Normal 1.6-2.6 [facility] Comment on above: Performed By: #### L EGN #### [facility] (DEFAULT) [address] [place] [address] Interpretation and review of laboratory results Normal [facility] Magnesium [Mass/Vol] 1.7 mg/dL 1.6 - 2 .6 mg/dL [facility] No Panel Informationon 09-02 Interpretation and review of laboratory results Abnormal [facility] PNEUMOCYSTIS JIROVECI,PCRon 09-02-2023 PN Report Status DNR Normal [facility] Comment on above: Performed By: #### T ACRO #### [facility] (DEFAULT) [address] [place] [address] PN Specimen Source BAL RML Normal [facility] Comment on above: Performed By: #### T ACRO #### [facility] (DEFAULT) [address] [place] [address] Pneum jiroveci comment DNR Normal [facility] Comment on above: Performed By: #### T ACRO #### [facility] (DEFAULT) [address] [address] Pneumocystis jiroveci,PCR result Negative Normal Not Applicable [facility] Comment on above: Result Comment: ADDITIONAL INFORMATION This test was developed and its performance characteristics determined by [facility] in a manner consistent with CLIA requirements. This test has not been cleared or approved by the U.S. Food and Drug Administration. Test Performed by: [facility] [place] [address] Manager Documentation: Rosendo Bose M.D. Ph.D.; IA# [id number] Performed By: #### T ACRO #### [facility] (DEFAULT) [address] [address] PN Report Status DNR Normal [facility] Comment on above: Performed By: #### Y PNRP #### [facility] (DEFAULT) [address] [address] PN Specimen Source BAL LLL Normal [facility] Comment on above: Performed By: #### Y PNRP #### [facility] (DEFAULT) [address] [address] Pneum jiroveci comment DNR Normal [facility] Comment on above: Performed By: #### Y PNRP #### [facility] (DEFAULT) [address] [address] Pneumocystis jiroveci,PCR result Negative Normal Not Applicable [facility] Comment on above: Result Comment: ADDITIONAL INFORMATION This test was developed and its performance characteristics determined by [facility] in a manner consistent with CLIA requirements. This test has not been cleared or approved by the U.S. Food and Drug Administration. Test Performed by: [place] [address] Manager Documentation: Rosendo Bose M.D. Ph.D.; [facility]# [id number] Performed By: #### Y [facility] #### [facility] (DEFAULT) [address] [address] TACROLIMUS LEVEL, TROUGH (TX E DRUG LEVEL)on 09-02-2023 Interpretation and review of laboratory results Normal [facility] Tacrolimus (Bld) [Mass/Vol] 4.2 ng/mL [facility] Tacrolimus, Trough 4.2 ng/mL Normal [facility] Transplant: 4.0-12.0, Therapeutic: 5.0-15.0 [facility] Comment on above: Order Comment: Pleas e draw at specified interval PRIOR to dose. Do not hold dose to wait for level. Specimens batched twice per day, (M-) and once per day weekends Method performed is a chemiluminescent microparticle immunoasssay on the [employer] i2000. The range is based on experience at [facility] and users should be aware that target concentrations vary widely depending on concomitant therapy, time post-transplant, and desired degree of immunosuppression. Performed By: #### T ACRO #### [facility] (DEFAULT) [address] [address] CBC,PLATELETSon 09-01-2023 Hematocrit (Bld) [Volume fraction] 38.9 % Low 39.6-48.8 [facility] Comment on above: Performed By: #### H [facility] #### [facility] (DEFAULT) [address] [address] Hemoglobin (Bld) [Mass/Vol] 12.7 g/dL Low 13.4-16.8 [facility] Comment on above: Performed By: #### H EMO #### [facility] (DEFAULT) [address] [address] MCV (RBC) [Entitic vol] 84.6 fL Normal 79.0-94.5 [facility] Comment on above: Performed By: #### H EMOGC #### [facility] (DEFAULT) [address] [place] [address] Mean Cell Hgb 27.6 pg Normal 26.1-33.3 [facility] Comment on above: Performed By: #### H EMOGC #### [facility] (DEFAULT) [address] [address] Mean Cell Hgb Conc 32.6 g/dL Normal 31.9-36.5 [facility] Comment on above: Performed By: #### H EMOGC #### [facility] (DEFAULT) [address] [address] Platelet mean volume (Bld) [Entitic vol] 9.4 fL Normal 8.7-12.3 [facility] Comment on above: Performed By: #### H EMOGC #### [facility] (DEFAULT) [address] [address] Platelets (Bld) [#/Vol] 209 10*3/uL Normal 146-337 [facility] Comment on above: Performed By: #### H EMOGC #### [facility] (DEFAULT) [address] [address] RBC (Bld) [#/Vol] 4.60 10*6/uL Normal 4.38-5.83 [facility] Comment on above: Performed By: #### H EMOGC #### [facility] (DEFAULT) [address] [address] RBC Distribution 13.4 % Normal 10.9-14.3 [facility] Comment on above: Performed By: #### H EMOGC #### [facility] (DEFAULT) [address] [address] WBC (Bld) [#/Vol] 4.41 10*3/uL Normal 3.73-10.10 [facility] Comment on above: Performed By: #### H EMOGC #### [facility] (DEFAULT) [address] [place] [address] Erythrocyte distribution width (RBC) [Ratio] 13.4 % 10.9 - 14.3 % [facility] Hematocrit (Bld) [Volume fraction] 38.9 % Low 39.6 - 48.8 % [facility] Hemoglobin (Bld) [Mass/Vol] 12.7 g/dL Low 13.4 - 16.8 g/dL [facility] Interpretation and review of laboratory results Abnormal [facility] MCH (RBC) [Entitic mass] 27.6 pg 26.1 - 33.3 pg [facility] MCHC (RBC) [Mass/Vol] 32.6 g/dL 31.9 - 36.5 g/dL [facility] MCV (RBC) [Entitic vol] 84.6 fL 79.0 - 94.5 fL [facility] Platelet mean volume (Bld) [Entitic vol] 9.4 fL 8.7 - 12.3 fL [facility] Platelets (Bld) [#/Vol] 209 10*3/uL 146 - 337 K/uL [facility] RBC (Bld) [#/Vol] 4.60 10*6/uL [facility] WBC (Bld) [#/Vol] 4.41 10*3/uL 3.73 - 10. 10 K/uL [facility] CHEM 7 (LYTES,BUN,CREA,GLUC) on 09-01-2023 Anion gap [Moles/Vol] 14 mmol/L Normal 7-17 [facility] Comment on above: Performed By: ###Walter UNDERWOOD #### [facility] (DEFAULT) [address] [place] [address] Chloride [Moles/Vol] 103 mmol/L Normal 98-108 [facility] Comment on above: Performed By: ###Walter UNDERWOOD #### [facility] (DEFAULT) [address] [place] [address] CO2 [Moles/Vol] 21 mmol/L Normal 21-31 [facility] Comment on above: Performed By: ###Walter UNDERWOOD #### [facility] (DEFAULT) [address] [place] [address] Creatinine [Mass/Vol] 1.16 mg/dL Normal 0.70-1.30 [facility] Comment on above: Performed By: #### Vale UNDERWOOD #### [facility] (DEFAULT) [address] [place] [address] GFR/1.73 sq M.predicted among non-blacks MDRD (S/P/Bld) [Vol rate/Area] 76 mL/min/{1.73_m2} Normal >=60 [facility] Comment on above: Result Comment: Repo rted eGFR is based on the CKD-EPI 2020 equation using creatinine, age, and sex. Performed By: ###Walter UNDERWOOD #### [facility] (DEFAULT) [address] [place] [address] Glucose [Mass/Vol] 117 mg/dL High 70-99 [facility] Comment on above: Performed By: ###Walter UNDERWOOD #### [facility] (DEFAULT) [address] [place] [address] Osmolality [Osmolality] 285 mosm/kg Normal 278-305 [facility] Comment on above: Performed By: ###Walter UNDERWOOD #### [facility] (DEFAULT) [address] [place] [address] Potassium [Moles/Vol] 4.2 mmol/L Normal 3.5-5.0 [facility] Comment on above: Performed By: #### Vale UNDERWOOD #### [facility] (DEFAULT) [address] [place] [address] Sodium [Moles/Vol] 134 mmol/L Low 135-145 [facility] Comment on above: Performed By: #### Vale UNDERWOOD #### [facility] (DEFAULT) [address] [place] [address] Urea nitrogen [Mass/Vol] 18 mg/dL Normal 7-25 [facility] Comment on above: Performed By: #### G YASMINE #### [facility] (DEFAULT) [address] [place] [address] Urea nitrogen/Creatinine [Mass ratio] 16 mg/mg Normal [facility] Comment on above: Performed By: #### G YASMINE #### [facility] (DEFAULT) [address] [place] [address] Anion gap [Moles/Vol] 14 mmol/L 7 - 17 mmol/L [facility] Chloride [Moles/Vol] 103 mmol/L 98 - 10 8 mmol/L [facility] CO2 [Moles/Vol] 21 mmol/L 21 - 31 mmol/L [facility] Creatinine [Mass/Vol] 1.16 mg/dL 0.70 - 1.30 mg/dL [facility] eGFR, CKD-EPI, Male 76 - PINF [facility] Glucose [Mass/Vol] 117 mg/dL High 70 - 99 mg/dL [facility] Osmolality Calc [Osmolality] 285 [facility] Potassium [Moles/Vol] 4.2 mmol/L 3.5 - 5.0 mmol/L [facility] Sodium [Moles/Vol] 134 mmol/L Low 135 - 145 mmol/L [facility] Urea nitrogen [Mass/Vol] 18 mg/dL 7 - 25 mg/dL [facility] Urea nitrogen/Creatinine [Mass ratio] 16 mg/mg [facility] CRYPTOCOCCAL ANTIGENon 09-01 Cryptococcus Antigen,Serum Negative Normal Negative [facility] Comment on above: Performed By: #### H EMO #### [facility] (DEFAULT) [address] [place] [address] Cryptococcus sp Ag Ql (S) Negative Negative [facility] Interpretation and review of laboratory results Normal [facility] HEPATIC FUNCTION PANELon Albumin [Mass/Vol] 3.3 g/dL Low 3.5-5.0 [facility] Comment on above: Performed By: #### C HM7, MGO, HFP ####[facility] (DEFAULT)[address] [place] [address] ALP [Catalytic activity/Vol] 112 U/L Normal 32-126 [facility] Comment on above: Performed By: #### C HM7, MGO, HFP ####[facility] (DEFAULT)[address] [place] [address] ALT [Catalytic activity/Vol] 21 U/L Normal 10-52 [facility] Comment on above: Performed By: #### C HM7, MGO, HFP ####[facility] (DEFAULT)[address] [place] [address] AST [Catalytic activity/Vol] 29 U/L Normal 10-39 [facility] Comment on above: Performed By: #### C HM7, MGO, HFP ####[facility] (DEFAULT)[address] [place] [address] Bilirubin [Mass/Vol] 1.0 mg/dL Normal <1.5 [facility] Comment on above: Performed By: #### C HM7, MGO, HFP ####[facility] (DEFAULT)[address] [place] [address] Bilirubin.indirect [Mass/Vol] 0.2 mg/dL Normal <0.3 [facility] Comment on above: Performed By: #### C HM7, MGO, HFP ####[facility] (DEFAULT)[address] [place] [address] Protein [Mass/Vol] 6.8 g/dL Normal 6.4-8.3 [facility] Comment on above: Performed By: #### C HM7, MGO, HFP ####[facility] (DEFAULT)[address] [place] [address] Albumin [Mass/Vol] 3.3 g/dL Low 3.5 - 5.0 g/dL [facility] ALP [Catalytic activity/Vol] 112 U/L 32 - 126 U/L [facility] ALT [Catalytic activity/Vol] 21 U/L 10 - 52 U/L [facility] AST [Catalytic activity/Vol] 29 U/L 10 - 39 U/L [facility] Bilirubin [Mass/Vol] 1.0 mg/dL NINF - 1.5 mg/dL [facility] Bilirubin.direct [Mass/Vol] 0.2 mg/dL NINF - 0.3 mg/dL [facility] Protein [Mass/Vol] 6.8 g/dL 6.4 - 8.3 g/dL [facility] L. pneumophila 1 Ag IA Ql (U )Ordered By: Carolin Miles on 09-01-2023 Interpretation and review of laboratory results Normal [facility] LEGIONELLA URINARY AGOrdered By: Carolin Miles on 09-01-2023 L. pneumophila 1 Ag IA Ql (U) Negative Negative [facility] MAGNESIUMon 09-01-2023 Magnesium [Mass/Vol] 1.6 mg/dL Normal 1.6-2.6 [facility] Comment on above: Performed By: #### G YASMINE #### [facility] (DEFAULT) [address] [place] [address] Interpretation and review of laboratory results Normal [facility] Magnesium [Mass/Vol] 1.6 mg/dL 1.6 - 2 .6 mg/dL [facility] No Panel Informationon 09-01 Interpretation and review of laboratory results Abnormal [facility] PARVOVIRUS (B19) DNA, PCR, B LOODon 09-01-2023 PARVOVIRUS B19 BY RAPID PCR Not detected Normal Not Detected [facility] Comment on above: Result Comment: The primers/probe used in this assay will detect parvovirus B19 and V9 (genotypes 1 # 3) but may not detect parvovirus genotype 2. The majority of circulating Parvovirus B19 strains in the [facility] are genotype 1. Genotype 2 is not believed to circulate widely in the [place], but has been associated with similar clinical features as genotype 1. Genotype 3 is most prevalent in some countries. This test was developed and its analytical performance characteristics have been determined by [facility] [place], [place]. It has not been cleared or approved by the FDA. This assay has been validated pursuant to the CLIA regulations and is used for clinical purposes. Test Performed at: [facility] [address] [place], [place] Ramon Benavides M.D., Ph.D.,Director of Laboratories Performed By: #### Vale UNDERWOOD #### [facility] (DEFAULT) [address] [place] [address] [place] SPEC SOURCE Whole Blood Normal [facility] Comment on above: Performed By: #### Vale UNDERWOOD #### [facility] ([facility] [address] [place] [address] 98811 ASPERGILLUS (GALACTOMANNAN), ANTIGENon 08-31-2023 Aspergillus Antigen <0.500 Normal <0.5 [facility] Comment on above: Result Comment: ADDITIONAL INFORMATION This is a qualitative test and the resulted index value is not indicative of disease severity. Serial testing is recommended for patients at high risk for invasive aspergillosis. This assay was performed using the FDA-cleared [employer] Platelia Aspergillus Galactomannan EIA. Test Performed by: [place] [id number] Manager Documentation: Rosendo Bose M.D. Ph.D.; CLIA# [id number] Performed By: #### Y PNRP #### [facility] (DEFAULT) [address] [place] [address] 67988 CBC,PLATELETSon 08-31-2023 Hematocrit (Bld) [Volume fraction] 39.4 % Low 39.6-48.8 [facility] Comment on above: Performed By: #### T ACRO #### [facility] (DEFAULT) [address] [place] [address] 52683 Hemoglobin (Bld) [Mass/Vol] 12.8 g/dL Low 13.4-16.8 [facility] Comment on above: Performed By: #### T ACRO #### [facility] (DEFAULT) [address] [place] [address] 64644 MCV (RBC) [Entitic vol] 85.1 fL Normal 79.0-94.5 [facility] Comment on above: Performed By: #### T ACRO #### [facility] (DEFAULT) [address] [place] [address] 63287 Mean Cell Hgb 27.6 pg Normal 26.1-33.3 [facility] Comment on above: Performed By: #### T ACRO #### [facility] (DEFAULT) [address] [place] [address] 21752 Mean Cell Hgb Conc 32.5 g/dL Normal 31.9-36.5 [facility] Comment on above: Performed By: #### T ACRO #### [facility] (DEFAULT) [address] [place] [address] 72822 Platelet mean volume (Bld) [Entitic vol] 9.6 fL Normal 8.7-12.3 [facility] Comment on above: Performed By: #### T ACRO #### [facility] (DEFAULT) [address] [address] Platelets (Bld) [#/Vol] 228 10*3/uL Normal 146-337 [facility] Comment on above: Performed By: #### T ACRO #### [facility] (DEFAULT) [address] [place] [address] 56167 RBC (Bld) [#/Vol] 4.63 10*6/uL Normal 4.38-5.83 [facility] Comment on above: Performed By: #### T ACRO #### [facility] (DEFAULT) [address] [place] [address] 38110 RBC Distribution 13.3 % Normal 10.9-14.3 [facility] Comment on above: Performed By: #### T ACRO #### [facility] (DEFAULT) [address] [place] [address] WBC (Bld) [#/Vol] 4.77 10*3/uL Normal 3.73-10.10 [facility] Comment on above: Performed By: #### T ACRO #### [facility] (DEFAULT) [address] [place] [address] Erythrocyte distribution width (RBC) [Ratio] 13.3 % 10.9 - 14.3 % [facility] Hematocrit (Bld) [Volume fraction] 39.4 % Low 39.6 - 48.8 % [facility] Hemoglobin (Bld) [Mass/Vol] 12.8 g/dL Low 13.4 - 16.8 g/dL [facility] Interpretation and review of laboratory results Abnormal [facility] MCH (RBC) [Entitic mass] 27.6 pg 26.1 - 33.3 pg [facility] MCHC (RBC) [Mass/Vol] 32.5 g/dL 31.9 - 36.5 g/dL [facility] MCV (RBC) [Entitic vol] 85.1 fL 79.0 - 94.5 fL [facility] Platelet mean volume (Bld) [Entitic vol] 9.6 fL 8.7 - 12.3 fL [facility] Platelets (Bld) [#/Vol] 228 10*3/uL 146 - 337 K/uL [facility] RBC (Bld) [#/Vol] 4.63 10*6/uL [facility] WBC (Bld) [#/Vol] 4.77 10*3/uL 3.73 - 10. 10 K/uL [facility] CHEM 7 (LYTES,BUN,CREA,GLUC) on 08-31-2023 Anion gap [Moles/Vol] 13 mmol/L Normal 7-17 [facility] Comment on above: Performed By: #### T ACRO #### [facility] (DEFAULT) [address] [place] [address] 99373 Chloride [Moles/Vol] 102 mmol/L Normal 98-108 [facility] Comment on above: Performed By: #### T ACRO #### [facility] (DEFAULT) [address] [place] [address] 14032 CO2 [Moles/Vol] 23 mmol/L Normal 21-31 [facility] Comment on above: Performed By: #### T ACRO #### [facility] (DEFAULT) [address] [place] [address] 69238 Creatinine [Mass/Vol] 1.37 mg/dL High 0.70-1.30 [facility] Comment on above: Performed By: #### T ACRO #### [facility] (DEFAULT) [address] [place] [address] 74195 GFR/1.73 sq M.predicted among non-blacks MDRD (S/P/Bld) [Vol rate/Area] 62 mL/min/{1.73_m2} Normal >=60 [facility] Comment on above: Result Comment: Repo rted eGFR is based on the CKD-EPI 2020 equation using creatinine, age, and sex. Performed By: #### T ACRO #### [facility] (DEFAULT) [address] [place] [address] 62124 Glucose [Mass/Vol] 112 mg/dL High 70-99 [facility] Comment on above: Performed By: #### T ACRO #### [facility] (DEFAULT) [address] [place] [address] 72604 Osmolality [Osmolality] 284 mosm/kg Normal 278-305 [facility] Comment on above: Performed By: #### T ACRO #### [facility] (DEFAULT) [address] [place] [address] 11909 Potassium [Moles/Vol] 4.4 mmol/L Normal 3.5-5.0 [facility] Comment on above: Performed By: #### T ACRO #### [facility] (DEFAULT) [address] [place] [address] Sodium [Moles/Vol] 134 mmol/L Low 135-145 [facility] Comment on above: Performed By: #### T ACRO #### [facility] (DEFAULT) [address] [place] [address] Urea nitrogen [Mass/Vol] 16 mg/dL Normal 7-25 [facility] Comment on above: Performed By: #### T ACRO #### [facility] (DEFAULT) [address] [place] [address] Urea nitrogen/Creatinine [Mass ratio] 12 mg/mg Normal [facility] Comment on above: Performed By: #### T ACRO #### [facility] (DEFAULT) [address] [place] [address] Anion gap [Moles/Vol] 13 mmol/L 7 - 17 mmol/L [facility] Chloride [Moles/Vol] 102 mmol/L 98 - 10 8 mmol/L [facility] CO2 [Moles/Vol] 23 mmol/L 21 - 31 mmol/L [facility] Creatinine [Mass/Vol] 1.37 mg/dL High 0.70 - 1.30 mg/dL [facility] eGFR, CKD-EPI, [facility] 62 [facility] Glucose [Mass/Vol] 112 mg/dL High 70 - 99 mg/dL [facility] Osmolality Calc [Osmolality] 284 [facility] Potassium [Moles/Vol] 4.4 mmol/L 3.5 - 5.0 mmol/L [facility] Sodium [Moles/Vol] 134 mmol/L Low 135 - 145 mmol/L [facility] Urea nitrogen [Mass/Vol] 16 mg/dL 7 - 25 mg/dL [facility] Urea nitrogen/Creatinine [Mass ratio] 12 mg/[facility]BDOMEN/PELVIS WITHOUT CO NTRASTon 08-31-2023 [...] Adrenals: Adrenal glands are unremarkable. Kidneys: [place] kidneys are atrophic. No stones or hydronephrosis. No focal lesions noted within [place] kidneys on this noncontrast study. Renovascular calcifications [...] have reviewed and approved this report. Normal [facility] CT Abdomen and Pelvis WO con traston 08-31-2023 RADIOLOGY RADIOLOGY [facility] Radiology Study observation (narrative) [facility] Pelvis WO con trastOrdered By: Chavez Larkin on 08-31-2023 [facility] Work Phone: CT CHEST WITHOUT CONTRASTon [...] likely reactive. 4. Coronary artery disease. Normal [facility] CT Chest WO contraston 08-31 RADIOLOGY RADIOLOGY [facility] Radiology Study observation (narrative) [facility] CT Chest WO contrastOrdered By: Daisha Patterson on 08-31-2023 [facility] Work Phone: FERRITINon 08-31-2023 Ferritin [Mass/Vol] 409.0 ng/mL High 10.5 - 3 07.3 ng/mL [facility] Interpretation and review of laboratory results Abnormal [facility] Ferritin [Mass/Vol] 409.0 ng/mL High 10.5-307.3 [facility] Comment on above: Performed By: #### T ACRO #### [facility] (DEFAULT) [address] [place] [address] 78153 HEPATIC FUNCTION PANELon Albumin [Mass/Vol] 3.3 g/dL Low 3.5-5.0 [facility] Comment on above: Performed By: #### T ACRO #### [facility] (DEFAULT) [address] [place] [address] 86586 ALP [Catalytic activity/Vol] 113 U/L Normal 32-126 [facility] Comment on above: Performed By: #### T ACRO #### [facility] (DEFAULT) [address] [place] [address] 42637 ALT [Catalytic activity/Vol] 25 U/L Normal 10-52 [facility] Comment on above: Performed By: #### T ACRO #### [facility] (DEFAULT) [address] [place] [address] 62856 AST [Catalytic activity/Vol] 31 U/L Normal 10-39 [facility] Comment on above: Performed By: #### T ACRO #### [facility] (DEFAULT) [address] [place] [address] 46615 Bilirubin [Mass/Vol] 1.1 mg/dL Normal <1.5 [facility] Comment on above: Performed By: #### T ACRO #### [facility] (DEFAULT) [address] [place] [address] 60576 Bilirubin.indirect [Mass/Vol] 0.3 mg/dL High <0.3 [facility] Comment on above: Performed By: #### T ACRO #### [facility] (DEFAULT) [address] [place] [address] 53421 Protein [Mass/Vol] 7.0 g/dL Normal 6.4-8.3 [facility] Comment on above: Performed By: #### T ACRO #### [facility] (DEFAULT) [address] [place] [address] 92417 Albumin [Mass/Vol] 3.3 g/dL Low 3.5 - 5.0 g/dL [facility] ALP [Catalytic activity/Vol] 113 U/L 32 - 126 U/L [facility] ALT [Catalytic activity/Vol] 25 U/L 10 - 52 U/L [facility] AST [Catalytic activity/Vol] 31 U/L 10 - 39 U/L [facility] Bilirubin [Mass/Vol] 1.1 mg/dL NINF - 1.5 mg/dL [facility] Bilirubin.direct [Mass/Vol] 0.3 mg/dL High NINF - 0.3 mg/dL [facility] Protein [Mass/Vol] 7.0 g/dL 6.4 - 8.3 g/dL [facility] LEGIONELLA URINARY AGon - Legionella Urinary Antigen Negative Normal Negative [facility] Comment on above: Performed By: #### T ACRO #### [facility] (DEFAULT) [address] [place] [address] 96194 MAGNESIUMon 08-31-2023 Magnesium [Mass/Vol] 1.7 mg/dL Normal 1.6-2.6 [facility] Comment on above: Performed By: #### T ACRO #### [facility] (DEFAULT) [address] [place] [address] 06731 Interpretation and review of laboratory results Normal [facility] Magnesium [Mass/Vol] 1.7 mg/dL 1.6 - 2 .6 mg/dL [facility] No Panel Informationon 08-31 Interpretation and review of laboratory results Abnormal [facility] PROCALCITONINon 08-31-2023 Interpretation and review of laboratory results Normal [facility] Procalcitonin [Mass/Vol] 0.23 ng/mL NINF - 0.50 ng/mL [facility] Procalcitonin 0.23 ng/mL Normal <0.50 [facility] Comment on above: Result Comment: Proc [...] and trend procalcitonin in various clinical settings. [email or web address]?[email or web address]=[email or web address] Two common cutoffs associated with bacterial infections are as follows. Respiratory tract infections: >0.25 ng/mL Sepsis/septic shock: >0.5 ng/mL Procalcitonin should not be used alone as a diagnostic tool, however. All procalcitonin results should be interpreted in association with the patients clinical condition and all laboratory findings. Performed By: #### T ACRO #### [facility] (DEFAULT) [address] [place] [address] TACROLIMUS LEVEL, TROUGH ([place] E DRUG LEVEL)Ordered By: Yanira Marcum on 08-31-2023 Interpretation and review of laboratory results Normal [facility] Tacrolimus (Bld) [Mass/Vol] 5.9 ng/mL [facility] TACROLIMUS LEVEL, TROUGH ([place] E DRUG LEVEL)on 08-31-2023 Tacrolimus, Trough 5.9 ng/mL Normal [facility] Susana ow Transplant: 4.0-12.0, Therapeutic: 5.0-15.0 [facility] Comment on above: Order Comment: Pleas e draw at specified interval PRIOR to dose. Do not hold dose to wait for level. Specimens batched twice per day, (M-F) and once per day weekendsMethod performed is a chemiluminescent microparticle immunoasssay on the [employer] i2000.The range is based on experience at [facility] and users should be aware that target concentrations vary widely depending on concomitant therapy, time post-transplant, and desired degree of immunosuppression. Performed By: #### T ACRO ####[facility] (DEFAULT)[address] [place] [address] 35777 URINE CULTUREOrdered By: Jorge crowe Held on 08-31-2023 Bacteria identified Cx Nom (Unsp spec) No Growth [facility] DARYL AURIS SCREEN BY PCRO rdered By: Mynor Alejandro on 08-30-2023 Daryl auris Screen by PCR Not detected Not Detected [facility] Interpretation and review of laboratory results Normal [facility] CBC,PLATELETSon 08-30-2023 Hematocrit (Bld) [Volume fraction] 41.3 % Normal 39.6-48.8 [facility] Comment on above: Performed By: #### G YASMINE #### [facility] (DEFAULT) [address] [place] [address] 88164 Hemoglobin (Bld) [Mass/Vol] 13.2 g/dL Low 13.4-16.8 [facility] Comment on above: Performed By: #### Vale UNDERWOOD #### [facility] (DEFAULT) [address] [place] [address] 17758 MCV (RBC) [Entitic vol] 85.5 fL Normal 79.0-94.5 [facility] Comment on above: Performed By: #### Vale UNDERWOOD #### [facility] (DEFAULT) [address] [place] [address] 45958 Mean Cell Hgb 27.3 pg Normal 26.1-33.3 [facility] Comment on above: Performed By: #### G ASAASHISH #### [facility] (DEFAULT) [address] [place] [address] 01808 Mean Cell Hgb Conc 32.0 g/dL Normal 31.9-36.5 [facility] Comment on above: Performed By: #### Vale UNDERWOOD #### [facility] (DEFAULT) [address] [place] [address] 48312 Platelet mean volume (Bld) [Entitic vol] 9.2 fL Normal 8.7-12.3 [facility] Comment on above: Performed By: #### Vale UNDERWOOD #### [facility] (DEFAULT) [address] [place] [address] 15202 Platelets (Bld) [#/Vol] 235 10*3/uL Normal 146-337 [facility] Comment on above: Performed By: #### Vale UNDERWOOD #### [facility] (DEFAULT) [address] [address] RBC (Bld) [#/Vol] 4.83 10*6/uL Normal 4.38-5.83 [facility] Comment on above: Performed By: ###Walter UNDERWOOD #### [facility] (DEFAULT) [address] [place] [address] 62624 RBC Distribution 13.3 % Normal 10.9-14.3 [facility] Comment on above: Performed By: ###Walter UNDERWOOD #### [facility] (DEFAULT) [address] [place] [address] 30621 WBC (Bld) [#/Vol] 4.96 10*3/uL Normal 3.73-10.10 [facility] Comment on above: Performed By: ###Walter UNDERWOOD #### [facility] (DEFAULT) [address] [address] Erythrocyte distribution width (RBC) [Ratio] 13.3 % 10.9 - 14.3 % [facility] Hematocrit (Bld) [Volume fraction] 41.3 % 39.6 - 48.8 % [facility] Hemoglobin (Bld) [Mass/Vol] 13.2 g/dL Low 13.4 - 16.8 g/dL [facility] Interpretation and review of laboratory results Abnormal [facility] MCH (RBC) [Entitic mass] 27.3 pg 26.1 - 33.3 pg [facility] MCHC (RBC) [Mass/Vol] 32.0 g/dL 31.9 - 36.5 g/dL [facility] MCV (RBC) [Entitic vol] 85.5 fL 79.0 - 94.5 fL [facility] Platelet mean volume (Bld) [Entitic vol] 9.2 fL 8.7 - 12.3 fL [facility] Platelets (Bld) [#/Vol] 235 10*3/uL 146 - 337 K/uL [facility] RBC (Bld) [#/Vol] 4.83 10*6/uL [facility] WBC (Bld) [#/Vol] 4.96 10*3/uL 3.73 - 10. 10 K/uL [facility] CHEM 7 (LYTES,BUN,CREA,GLUC) on 08-30-2023 Anion gap [Moles/Vol] 14 mmol/L Normal 7-17 [facility] Comment on above: Performed By: #### T ACRO #### [facility] (DEFAULT) [address] [place] [address] 91157 Chloride [Moles/Vol] 102 mmol/L Normal 98-108 [facility] Comment on above: Performed By: #### T ACRO #### [facility] (DEFAULT) [address] [place] [address] 90972 CO2 [Moles/Vol] 20 mmol/L Low 21-31 [facility] Comment on above: Performed By: #### T ACRO #### [facility] (DEFAULT) [address] [place] [address] 99649 Creatinine [Mass/Vol] 1.56 mg/dL High 0.70-1.30 [facility] Comment on above: Performed By: #### T ACRO #### [facility] (DEFAULT) [address] [place] [address] 17621 GFR/1.73 sq M.predicted among non-blacks MDRD (S/P/Bld) [Vol rate/Area] 53 mL/min/{1.73_m2} Low >=60 [facility] Comment on above: Result Comment: Repo rted eGFR is based on the CKD-EPI 2020 equation using creatinine, age, and sex. Performed By: #### T ACRO #### [facility] (DEFAULT) [address] [place] [address] 92423 Glucose [Mass/Vol] 123 mg/dL High 70-99 [facility] Comment on above: Performed By: #### T ACRO #### [facility] (DEFAULT) [address] [place] [address] 30810 Osmolality [Osmolality] 281 mosm/kg Normal 278-305 [facility] Comment on above: Performed By: #### T ACRO #### [facility] (DEFAULT) [address] [place] [address] 90330 Potassium [Moles/Vol] 4.3 mmol/L Normal 3.5-5.0 [facility] Comment on above: Performed By: #### T ACRO #### [facility] (DEFAULT) [address] [place] [address] 57131 Sodium [Moles/Vol] 132 mmol/L Low 135-145 [facility] Comment on above: Performed By: #### T ACRO #### [facility] (DEFAULT) [address] [place] [address] 82461 Urea nitrogen [Mass/Vol] 16 mg/dL Normal 7-25 [facility] Comment on above: Performed By: #### T ACRO #### [facility] (DEFAULT) [address] [place] [address] 76602 Urea nitrogen/Creatinine [Mass ratio] 10 mg/mg Normal [facility] Comment on above: Performed By: #### T ACRO #### [facility] (DEFAULT) [address] [place] [address] 52093 Anion gap [Moles/Vol] 14 mmol/L 7 - 17 mmol/L [facility] Chloride [Moles/Vol] 102 mmol/L 98 - 10 8 mmol/L [facility] CO2 [Moles/Vol] 20 mmol/L Low 21 - 31 mmol/L [facility] Creatinine [Mass/Vol] 1.56 mg/dL High 0.70 - 1.30 mg/dL [facility] eGFR, CKD-EPI, Male 54 Low - PINF [facility] Glucose [Mass/Vol] 123 mg/dL High 70 - 99 mg/dL [facility] Osmolality Calc [Osmolality] 281 [facility] Potassium [Moles/Vol] 4.3 mmol/L 3.5 - 5.0 mmol/L [facility] Sodium [Moles/Vol] 132 mmol/L Low 135 - 145 mmol/L [facility] Urea nitrogen [Mass/Vol] 16 mg/dL 7 - 25 mg/dL [facility] Urea nitrogen/Creatinine [Mass ratio] 10 mg/mg [facility] EXTRA MICROon 08-30-2023 [facility] HEPATIC FUNCTION PANELon Albumin [Mass/Vol] 3.7 g/dL Normal 3.5-5.0 [facility] Comment on above: Performed By: #### T ACRO #### [facility] (DEFAULT) [address] [place] [address] 53210 ALP [Catalytic activity/Vol] 115 U/L Normal 32-126 [facility] Comment on above: Performed By: #### T ACRO #### [facility] (DEFAULT) [address] [place] [address] ALT [Catalytic activity/Vol] 22 U/L Normal 10-52 [facility] Comment on above: Performed By: #### T ACRO #### [facility] (DEFAULT) [address] [place] [address] AST [Catalytic activity/Vol] 34 U/L Normal 10-39 [facility] Comment on above: Performed By: #### T ACRO #### [facility] (DEFAULT) [address] [place] [address] 02153 Bilirubin [Mass/Vol] 1.2 mg/dL Normal <1.5 [facility] Comment on above: Performed By: #### T ACRO #### [facility] (DEFAULT) [address] [place] [address] 02230 Bilirubin.indirect [Mass/Vol] 0.3 mg/dL High <0.3 [facility] Comment on above: Performed By: #### T ACRO #### [facility] (DEFAULT) [address] [place] [address] 61908 Protein [Mass/Vol] 7.7 g/dL Normal 6.4-8.3 [facility] Comment on above: Performed By: #### T ACRO #### [facility] (DEFAULT) [address] [place] [address] 76216 Albumin [Mass/Vol] 3.7 g/dL 3.5 - 5.0 g/dL [facility] ALP [Catalytic activity/Vol] 115 U/L 32 - 126 U/L [facility] ALT [Catalytic activity/Vol] 22 U/L 10 - 52 U/L [facility] AST [Catalytic activity/Vol] 34 U/L 10 - 39 U/L [facility] Bilirubin [Mass/Vol] 1.2 mg/dL [facility] - 1.5 mg/dL [facility] Bilirubin.direct [Mass/Vol] 0.3 mg/dL High NINF - 0.3 mg/dL [facility] Protein [Mass/Vol] 7.7 g/dL 6.4 - 8.3 g/dL [facility] MAGNESIUMon 08-30-2023 Magnesium [Mass/Vol] 1.8 mg/dL Normal 1.6-2.6 [facility] Comment on above: Performed By: #### T ACRO #### [facility] (DEFAULT) [address] [place] [address] 64882 Interpretation and review of laboratory results Normal [facility] Magnesium [Mass/Vol] 1.8 mg/dL 1.6 - 2 .6 mg/dL [facility] No Panel Informationon 08-30 Interpretation and review of laboratory results Abnormal [facility] CBC,PLATELETSon 08-29-2023 Hematocrit (Bld) [Volume fraction] 37.6 % Low 39.6-48.8 [facility] Comment on above: Performed By: #### H EMOGC #### [facility] (DEFAULT) [address] [place] [address] 88680 Hemoglobin (Bld) [Mass/Vol] 12.2 g/dL Low 13.4-16.8 [facility] Comment on above: Performed By: #### H EMOGC #### [facility] (DEFAULT) [address] [place] [address] 17316 MCV (RBC) [Entitic vol] 85.1 fL Normal 79.0-94.5 [facility] Comment on above: Performed By: #### H EMOGC #### [facility] (DEFAULT) [address] [place] [address] 99740 Mean Cell Hgb 27.6 pg Normal 26.1-33.3 [facility] Comment on above: Performed By: #### H EMOGC #### [facility] (DEFAULT) [address] [place] [address] 73430 Mean Cell Hgb Conc 32.4 g/dL Normal 31.9-36.5 [facility] Comment on above: Performed By: #### H EMOGC #### [facility] (DEFAULT) [address] [place] [address] 26972 Platelet mean volume (Bld) [Entitic vol] 9.4 fL Normal 8.7-12.3 [facility] Comment on above: Performed By: #### H EMOGC #### [facility] (DEFAULT) [address] [place] [address] 86769 Platelets (Bld) [#/Vol] 233 10*3/uL Normal 146-337 [facility] Comment on above: Performed By: #### H EMO #### [facility] (DEFAULT) [address] [place] [address] 36368 RBC (Bld) [#/Vol] 4.42 10*6/uL Normal 4.38-5.83 [facility] Comment on above: Performed By: #### H EMO #### [facility] (DEFAULT) [address] [place] [address] 05189 RBC Distribution 13.4 % Normal 10.9-14.3 [facility] [facility] Comment on above: Performed By: #### H EMO #### [facility] (DEFAULT) [address] [place] [address] 68348 WBC (Bld) [#/Vol] 4.92 10*3/uL Normal 3.73-10.10 [facility] Comment on above: Performed By: #### H [facility] #### [facility] (DEFAULT) [address] [place] [address] 29970 Erythrocyte distribution width (RBC) [Ratio] 13.4 % 10.9 - 14.3 % [facility] Hematocrit (Bld) [Volume fraction] 37.6 % Low 39.6 - 48.8 % [facility] Hemoglobin (Bld) [Mass/Vol] 12.2 g/dL Low 13.4 - 16.8 g/dL [facility] Interpretation and review of laboratory results Abnormal [facility] MCH (RBC) [Entitic mass] 27.6 pg 26.1 - 33.3 pg [facility] MCHC (RBC) [Mass/Vol] 32.4 g/dL 31.9 - 36.5 g/dL [facility] MCV (RBC) [Entitic vol] 85.1 fL 79.0 - 94.5 fL [facility] Platelet mean volume (Bld) [Entitic vol] 9.4 fL 8.7 - 12.3 fL [facility] Platelets (Bld) [#/Vol] 233 10*3/uL 146 - 337 K/uL [facility] RBC (Bld) [#/Vol] 4.42 10*6/uL [facility] WBC (Bld) [#/Vol] 4.92 10*3/uL 3.73 - 10. 10 K/uL [facility] CHEM 7 (LYTES,BUN,CREA,GLUC) on 08-29-2023 Anion gap [Moles/Vol] 13 mmol/L Normal 7-17 [facility] Comment on above: Performed By: #### Vale UNDERWOOD #### [facility] (DEFAULT) [address] [place] [address] 31463 Chloride [Moles/Vol] 105 mmol/L Normal 98-108 [facility] Comment on above: Performed By: #### Vale UNDERWOOD #### [facility] (DEFAULT) [address] [place] [address] 50569 CO2 [Moles/Vol] 20 mmol/L Low 21-31 [facility] Comment on above: Performed By: #### Vale UNDERWOOD #### [facility] (DEFAULT) [address] [place] [address] 47227 Creatinine [Mass/Vol] 1.55 mg/dL High 0.70-1.30 [facility] Comment on above: Performed By: #### G YASMINE #### [facility] (DEFAULT) [address] [place] [address] 18346 GFR/1.73 sq M.predicted among non-blacks MDRD (S/P/Bld) [Vol rate/Area] 54 mL/min/{1.73_m2} Low >=60 [facility] Comment on above: Result Comment: Repo rted eGFR is based on the CKD-EPI 2020 equation using creatinine, age, and sex. Performed By: #### G YASMINE #### [facility] (DEFAULT) [address] [place] [address] 79709 Glucose [Mass/Vol] 108 mg/dL High 70-99 [facility] Comment on above: Performed By: #### Vale UNDERWOOD #### [facility] (DEFAULT) [address] [place] [address] 64711 Osmolality [Osmolality] 283 mosm/kg Normal 278-305 [facility] Comment on above: Performed By: #### Vale UNDERWOOD #### [facility] (DEFAULT) [address] [place] [address] 33805 Potassium [Moles/Vol] 4.5 mmol/L Normal 3.5-5.0 [facility] Comment on above: Performed By: #### Vale UNDERWOOD #### [facility] (DEFAULT) [address] [place] [address] 06929 Sodium [Moles/Vol] 133 mmol/L Low 135-145 [facility] Comment on above: Performed By: #### Vale UNDERWOOD #### [facility] (DEFAULT) [address] [place] [address] 32943 Urea nitrogen [Mass/Vol] 19 mg/dL Normal 7-25 [facility] Comment on above: Performed By: #### Vale UNDERWOOD #### [facility] (DEFAULT) [address] [place] [address] 03796 Urea nitrogen/Creatinine [Mass ratio] 12 mg/mg Normal [facility] Comment on above: Performed By: #### Vale UNDERWOOD #### [facility] (DEFAULT) [address] [place] [address] 83039 Anion gap [Moles/Vol] 13 mmol/L 7 - 17 mmol/L [facility] Chloride [Moles/Vol] 105 mmol/L 98 - 10 8 mmol/L [facility] CO2 [Moles/Vol] 20 mmol/L Low 21 - 31 mmol/L [facility] Creatinine [Mass/Vol] 1.55 mg/dL High 0.70 - 1.30 mg/dL [facility] eGFR, CKD-EPI, Male 54 Low [facility] Glucose [Mass/Vol] 108 mg/dL High 70 - 99 mg/dL [facility] Osmolality Calc [Osmolality] 283 [facility] Potassium [Moles/Vol] 4.5 mmol/L 3.5 - 5.0 mmol/L [facility] Sodium [Moles/Vol] 133 mmol/L Low 135 - 145 mmol/L [facility] Urea nitrogen [Mass/Vol] 19 mg/dL 7 - 25 mg/dL [facility] Urea nitrogen/Creatinine [Mass ratio] 12 mg/mg [facility] GGTon 08-29-2023 Gamma glutamyl transferase [Catalytic activity/Vol] 64 U/L 8 - 64 U/L [facility] Interpretation and review of laboratory results Normal [facility] Gamma glutamyl transferase [Catalytic activity/Vol] 64 U/L Normal 8-64 [facility] Comment on above: Performed By: #### Vale UNDERWOOD #### [facility] (DEFAULT) [address] [place] [address] 50295 HEPATIC FUNCTION PANELon Albumin [Mass/Vol] 3.3 g/dL Low 3.5-5.0 [facility] Comment on above: Performed By: #### Vale UNDERWOOD #### [facility] (DEFAULT) [address] [place] [address] 89913 ALP [Catalytic activity/Vol] 103 U/L Normal 32-126 [facility] Comment on above: Performed By: #### Vale UNDERWOOD #### [facility] (DEFAULT) [address] [place] [address] 69368 ALT [Catalytic activity/Vol] 18 U/L Normal 10-52 [facility] Comment on above: Performed By: #### Vale UNDERWOOD #### [facility] (DEFAULT) [address] [place] [address] 95163 AST [Catalytic activity/Vol] 27 U/L Normal 10-39 [facility] Comment on above: Performed By: #### Vale UNDERWOOD #### [facility] (DEFAULT) [address] [place] [address] 91821 Bilirubin [Mass/Vol] 1.1 mg/dL Normal <1.5 [facility] Comment on above: Performed By: #### G YASMINE #### [facility] (DEFAULT) [address] [place] [address] 76696 Bilirubin.indirect [Mass/Vol] 0.3 mg/dL High <0.3 [facility] Comment on above: Performed By: #### G YASMINE #### [facility] (DEFAULT) [address] [place] [address] 10692 Protein [Mass/Vol] 6.8 g/dL Normal 6.4-8.3 [facility] Comment on above: Performed By: #### Vale UNDERWOOD #### [facility] (DEFAULT) [address] [place] [address] 59917 Albumin [Mass/Vol] 3.3 g/dL Low 3.5 - 5.0 g/dL [facility] ALP [Catalytic activity/Vol] 103 U/L 32 - 126 U/L [facility] ALT [Catalytic activity/Vol] 18 U/L 10 - 52 U/L [facility] AST [Catalytic activity/Vol] 27 U/L 10 - 39 U/L [facility] Bilirubin [Mass/Vol] 1.1 mg/dL [facility] - 1.5 mg/dL [facility] Bilirubin.direct [Mass/Vol] 0.3 mg/dL High NINF - 0.3 mg/dL [facility] Protein [Mass/Vol] 6.8 g/dL 6.4 - 8.3 g/dL [facility] HISTOPLASMA AND BLASTOMYCES ANTIGEN, ENZYME IMMUNOASSAY, SERMon 08-29-2023 Histoplasma/Blastomyc es Ag Result Detected Invalid Interpretation Code Not Detected [facility] Comment on above: Result Comment: Anti gen from Histoplasma or Blastomyces (unable to differentiate) detected. Result should be correlated with clinical presentation, exposure history, and other diagnostic procedures, including culture, serology, histopathology, and/or radiographic findings, to aid in the differentiation between histoplasmosis and blastomycosis. CRITICAL RESULT Performed By: #### Y PNRP #### [facility] (DEFAULT) [address] [address] Histoplasma/Blastomyc es Ag Value 5.3 ng/mL Normal [facility] Comment on above: Result Comment: ADDITIONAL INFORMATION This test was developed and its performance characteristics determined by [facility] in a manner consistent with CLIA requirements. This test has not been cleared or approved by the U.S. Food and Drug Administration. Test Performed by: [facility] [place] [address] Manager Documentation: Rosendo Bose M.D. Ph.D.; CLIA# [id number] Performed By: #### Y PNRP #### [facility] (DEFAULT) [address] [place] [address] 01228 HISTOPLASMA ANTIGEN,URINEon 08-29-2023 HISTOPLASM AG, URINE Not detected Normal Not Detected [facility] Comment on above: Result Comment: No H istoplasma antigen detected. False negative results may occur. Repeat testing on a new specimen should be considered if clinically indicated. Performed By: #### T ACRO #### [facility] [address] [place] [address] 39446 Histoplasma Ag Value Not detected Normal [facility] Comment on above: Result Comment: ADDITIONAL INFORMATION This test has been modified from the director of annual giving's instructions. Its performance characteristics were determined by [facility] in a manner consistent with CLIA requirements. This test has not been cleared or approved by the U.S. Food and Drug Administration. Test Performed by: [facility] [place] [address] Manager Documentation: Rosendo Bose M.D. Ph.D.; CLIA# [id number] Performed By: #### T ACRO #### [facility] (DEFAULT) [address] [place] [address] 21253 MAGNESIUMon 08-29-2023 Magnesium [Mass/Vol] 1.7 mg/dL Normal 1.6-2.6 [facility] Comment on above: Performed By: #### G YASMINE #### [facility] (DEFAULT) [address] [place] [address] 64108 Interpretation and review of laboratory results Normal [facility] Magnesium [Mass/Vol] 1.7 mg/dL 1.6 - 2 .6 mg/dL [facility] No Panel Informationon 08-29 Interpretation and review of laboratory results Abnormal [facility] PT,INR,PTTon 08-29-2023 aPTT Coag (Bld) [Time] 29.3 s Normal 24.0-34.3 [facility] Comment on above: Performed By: #### L EGN #### [facility] (DEFAULT) [address] [place] [address] 96615 INR Coag (PPP) [Relative time] 1.1 {INR} Normal 0.9-1.1 [facility] Comment on above: Performed By: #### L EGN #### [facility] (DEFAULT) [address] [place] [address] 40554 PT Coag (PPP) [Time] 13.8 s Normal 11.9-14.2 [facility] Comment on above: Performed By: #### L EGN #### [facility] (DEFAULT) [address] [place] [address] 80121 aPTT Coag (PPP) [Time] 29.3 s [facility] INR Coag (Bld) [Relative time] 1.1 {INR} 0.9 - 1.1 [facility] Interpretation and review of laboratory results Normal [facility] PT Coag (PPP) [Time] 13.8 s [facility] Portable XR Chest Viewson RADIOLOGY RADIOLOGY [facility] Portable XR Chest ViewsOrder ed By: Gerald Bear on 08-29-2023 [facility] Work Phone: TACROLIMUS LEVEL, TROUGH ([place] E DRUG LEVEL)on 08-29-2023 Interpretation and review of laboratory results Normal [facility] Tacrolimus (Bld) [Mass/Vol] 8.9 ng/mL [facility] Tacrolimus, Trough 8.9 ng/mL Normal [facility] Transplant: 4.0-12.0, Therapeutic: 5.0-15.0 [facility] Comment on above: Order Comment: Pleas e draw at specified interval PRIOR to dose. Do not hold dose to wait for level. Specimens batched twice per day, (M-F) and once per day weekendsMethod performed is a chemiluminescent microparticle immunoasssay on the [employer] Supervisor i2000.The range is based on experience at [facility] and users should be aware that target concentrations vary widely depending on concomitant therapy, time post-transplant, and desired degree of immunosuppression. Performed By: #### H EMO #### [facility] (DEFAULT) [address] [address] Tacrolimus, Trough 8.7 ng/mL Normal [facility] Transplant: 4.0-12.0, Therapeutic: 5.0-15.0 [facility] Comment on above: Order Comment: Pleas e draw at specified interval PRIOR to dose. Do not hold dose to wait for level. Specimens batched twice per day, (M-F) and once per day weekends Method performed is a chemiluminescent microparticle immunoasssay on the [employer] Supervisor i2000. The range is based on experience at [facility] and users should be aware that target concentrations vary widely depending on concomitant therapy, time post-transplant, and desired degree of immunosuppression. Performed By: #### T ACRO #### [facility] (DEFAULT) [address] [address] TACROLIMUS LEVEL, TROUGH ([place] E DRUG LEVEL)Ordered By: Roxanne Louie on 08-29-2023 Interpretation and review of laboratory results Normal [facility] Tacrolimus (Bld) [Mass/Vol] 8.7 ng/mL [facility] URINALYSIS REFLEX TO CULTURE PERFORMABLEon 08-29-2023 Appearance (U) Clear Normal Clear [facility] Comment on above: Order Comment: Pleas e draw at specified interval PRIOR to dose. Do not hold dose to wait for level. Specimens batched twice per day, (M-F) and once per day weekends Method performed is a chemiluminescent microparticle immunoasssay on the [employer] Supervisor i2000. The range is based on experience at [facility] and users should be aware that target concentrations vary widely depending on concomitant therapy, time post-transplant, and desired degree of immunosuppression. Performed By: #### T ACRO #### [facility] (DEFAULT) [address] [address] Bacteria ABSENT Normal ABSENT [facility] Comment on above: Order Comment: Pleas e draw at specified interval PRIOR to dose. Do not hold dose to wait for level. Specimens batched twice per day, (M-F) and once per day weekends Method performed is a chemiluminescent microparticle immunoasssay on the [employer] Supervisor i2000. The range is based on experience at [facility] and users should be aware that target concentrations vary widely depending on concomitant therapy, time post-transplant, and desired degree of immunosuppression. Performed By: #### T ACRO #### [facility] (DEFAULT) [address] [address] Blood Urine Trace Abnormal Negative [facility] Comment on above: Order Comment: Pleas e draw at specified interval PRIOR to dose. Do not hold dose to wait for level. Specimens batched twice per day, (M-F) and once per day weekends Method performed is a chemiluminescent microparticle immunoasssay on the [employer] Supervisor i2000. The range is based on experience at [facility] and users should be aware that target concentrations vary widely depending on concomitant therapy, time post-transplant, and desired degree of immunosuppression. Performed By: #### T ACRO #### [facility] (DEFAULT) [address] [address] Calcium Oxalate Crystals PRESENT Normal [facility] Comment on above: Order Comment: Pleas e draw at specified interval PRIOR to dose. Do not hold dose to wait for level. Specimens batched twice per day, (M-F) and once per day weekends Method performed is a chemiluminescent microparticle immunoasssay on the [employer] Supervisor i2000. The range is based on experience at [facility] and users should be aware that target concentrations vary widely depending on concomitant therapy, time post-transplant, and desired degree of immunosuppression. Performed By: #### T ACRO #### [facility] [address] [address] Color (U) Yellow Normal Yellow [facility] Comment on above: Order Comment: Pleas e draw at specified interval PRIOR to dose. Do not hold dose to wait for level. Specimens batched twice per day, (M-F) and once per day weekends Method performed is a chemiluminescent microparticle immunoasssay on the [employer] Supervisor i2000. The range is based on experience at [facility] and users should be aware that target concentrations vary widely depending on concomitant therapy, time post-transplant, and desired degree of immunosuppression. Performed By: #### T ACRO #### [facility] (DEFAULT) [address] [address] Glucose Ql (U) Negative Normal Negative [facility] Comment on above: Order Comment: Pleas e draw at specified interval PRIOR to dose. Do not hold dose to wait for level. Specimens batched twice per day, (M-F) and once per day weekends Method performed is a chemiluminescent microparticle immunoasssay on the [employer] Supervisor i2000. The range is based on experience at [facility] and users should be aware that target concentrations vary widely depending on concomitant therapy, time post-transplant, and desired degree of immunosuppression. Performed By: #### T ACRO #### [facility] (DEFAULT) [address] [place] [address] 54911 Ketones Ql (U) Negative Normal Negative [facility] Comment on above: Order Comment: Pleas e draw at specified interval PRIOR to dose. Do not hold dose to wait for level. Specimens batched twice per day, (M-F) and once per day weekends Method performed is a chemiluminescent microparticle immunoasssay on the [employer] Supervisor i2000. The range is based on experience at [facility] and users should be aware that target concentrations vary widely depending on concomitant therapy, time post-transplant, and desired degree of immunosuppression. Performed By: #### T ACRO #### [facility] [address] [place] [address] 81848 Leukocyte esterase Test strip Ql (U) Negative Normal Negative [facility] Comment on above: Order Comment: Pleas e draw at specified interval PRIOR to dose. Do not hold dose to wait for level. Specimens batched twice per day, (M-F) and once per day weekends Method performed is a chemiluminescent microparticle immunoasssay on the [employer] Supervisor i2000. The range is based on experience at [facility] and users should be aware that target concentrations vary widely depending on concomitant therapy, time post-transplant, and desired degree of immunosuppression. Performed By: #### T ACRO #### [facility] [address] [place] [address] 30030 Nitrites Urine Negative Normal Negative [facility] Comment on above: Order Comment: Pleas e draw at specified interval PRIOR to dose. Do not hold dose to wait for level. Specimens batched twice per day, (M-F) and once per day weekends Method performed is a chemiluminescent microparticle immunoasssay on the [employer] Supervisor i2000. The range is based on experience at [facility] and users should be aware that target concentrations vary widely depending on concomitant therapy, time post-transplant, and desired degree of immunosuppression. Performed By: #### T ACRO #### [facility] [address] [place] [address] 34062 pH (U) 6.0 [pH] Normal 5.0-7.0 [facility] Comment on above: Order Comment: Pleas e draw at specified interval PRIOR to dose. Do not hold dose to wait for level. Specimens batched twice per day, (M-F) and once per day weekends Method performed is a chemiluminescent microparticle immunoasssay on the [employer] Supervisor i2000. The range is based on experience at [facility] and users should be aware that target concentrations vary widely depending on concomitant therapy, time post-transplant, and desired degree of immunosuppression. Performed By: #### T ACRO #### [facility] (DEFAULT) [address] [place] [address] 26920 Protein Urine Negative Normal Negative [facility] Comment on above: Order Comment: Pleas e draw at specified interval PRIOR to dose. Do not hold dose to wait for level. Specimens batched twice per day, (M-F) and once per day weekends Method performed is a chemiluminescent microparticle immunoasssay on the [employer] Supervisor i2000. The range is based on experience at [facility] and users should be aware that target concentrations vary widely depending on concomitant therapy, time post-transplant, and desired degree of immunosuppression. Performed By: #### T ACRO #### [facility] (DEFAULT) [address] [place] [address] 62190 RBC Urine 3-5 Abnormal 0-2 [facility] Comment on above: Order Comment: Pleas e draw at specified interval PRIOR to dose. Do not hold dose to wait for level. Specimens batched twice per day, (M-F) and once per day weekends Method performed is a chemiluminescent microparticle immunoasssay on the [employer] Supervisor i2000. The range is based on experience at [facility] and users should be aware that target concentrations vary widely depending on concomitant therapy, time post-transplant, and desired degree of immunosuppression. Performed By: #### T ACRO #### [facility] (DEFAULT) [address] [place] [address] Specific [place] Urine 1.015 Normal 1.001-1.035 [facility] Comment on above: Order Comment: Pleas e draw at specified interval PRIOR to dose. Do not hold dose to wait for level. Specimens batched twice per day, (M-F) and once per day weekends Method performed is a chemiluminescent microparticle immunoasssay on the [employer] Supervisor i2000. The range is based on experience at [facility] and users should be aware that target concentrations vary widely depending on concomitant therapy, time post-transplant, and desired degree of immunosuppression. Performed By: #### T ACRO #### [facility] (DEFAULT) [address] [place] [address] 79790 Squamous/Epithelial Cells 0-2/hpf Normal 0-2/hpf, 3-5/hpf = 1+ [facility] Comment on above: Order Comment: Pleas e draw at specified interval PRIOR to dose. Do not hold dose to wait for level. Specimens batched twice per day, (M-F) and once per day weekends Method performed is a chemiluminescent microparticle immunoasssay on the [employer] Supervisor i2000. The range is based on experience at [facility] and users should be aware that target concentrations vary widely depending on concomitant therapy, time post-transplant, and desired degree of immunosuppression. Performed By: #### T ACRO #### [facility] [address] [address] Urobilinogen Urine 1.0 E.U./dL Normal 0.2 E.U/d L, 1.0 E.U/dL [facility] Comment on above: Order Comment: Pleas e draw at specified interval PRIOR to dose. Do not hold dose to wait for level. Specimens batched twice per day, (M-F) and once per day weekends Method performed is a chemiluminescent microparticle immunoasssay on the [employer] Supervisor i2000. The range is based on experience at [facility] and users should be aware that target concentrations vary widely depending on concomitant therapy, time post-transplant, and desired degree of immunosuppression. Performed By: #### T ACRO #### [facility] (DEFAULT) [address] [place] [address] WBC Urine 0 - 5 Normal 0 - 5 [facility] Comment on above: Order Comment: Pleas e draw at specified interval PRIOR to dose. Do not hold dose to wait for level. Specimens batched twice per day, (M-F) and once per day weekends Method performed is a chemiluminescent microparticle immunoasssay on the [employer] Supervisor i2000. The range is based on experience at [facility] and users should be aware that target concentrations vary widely depending on concomitant therapy, time post-transplant, and desired degree of immunosuppression. Performed By: #### T ACRO #### [facility] (DEFAULT) [address] [address] URINALYSIS REFLEX TO CULTURE PERFORMABLEOrdered By: Shaji Kelly on 08-29-2023 Appearance (U) Clear Clear [facility] Bacteria LM Ql (Urine sed) ABSENT ABSENT [facility] Calcium Oxalate Crystals PRESENT [facility] Color (U) Yellow Yellow [facility] Epithelial cells.squamous LM Ql (Urine sed) 0-2/hpf 0-2/hpf, 3-5/hpf = 1+ [facility] Glucose Test strip (U) [Mass/Vol] Negative Negative [facility] Interpretation and review of laboratory results Abnormal [facility] Ketones (U) [Mass/Vol] Negative Negative [facility] Leukocyte esterase Test strip Ql (U) Negative Negative [facility] Nitrite Ql (U) Negative Negative [facility] pH (U) 6.0 [pH] 5.0 - 7.0 [facility] Protein (U) [Mass/Vol] Negative Negative [facility] RBC (U) [#/Vol] Trace Abnormal Negative [facility] RBC LM.HPF (Urine sed) [#/Area] 3-5 Abnormal [facility] Specific gravity (U) [Rel density] 1.015 1.001 - 1.035 [facility] Urobilinogen (U) [Mass/Vol] 1.0 E.U./dL 0.2 E.U/dL, 1.0 E.U/dL [facility] WBC LM.HPF (Urine sed) [#/Area] 0 - 5 [facility] URINE CULTUREon 08-29-2023 Bacteria identified Cx Nom (U) No Growth Normal [facility] Comment on above: Order Comment: For i ndwelling catheters, specimen collection is acceptable on catheter day 1 and 2 only. Sung top vacutainer. Urine must be to the fill line to process (4mls). If minimum volume, send urine in a yellow top vacutainer tube. Performed By: #### [facility] #### [facility] (DEFAULT) [address] [place] [address] US RENAL TRANSPLANT SCANon 0 08-29-2023 US [...] have reviewed and approved this report. Normal [facility] US for transplanted kidney l imitedon 08-29-2023 RADIOLOGY RADIOLOGY [facility] Radiology Study observation (narrative) [facility] US for transplanted kidney l imitedOrdered By: Romana Myers on 08-29-2023 [facility] Work Phone: XR CHEST PORTABLEon 08-29-20 XR CHEST PORTABLE EXAM: XR CHEST PORTABLE, 08/28/2023 21:46 PM CLINICAL INDICATIONS: Fevers, cough RELEVANT CLINICAL HISTORY: COMPARISON: May 17, 2022 FINDINGS: Clear lungs. Prominent heart, unchanged. No pulmonary edema. Normal bones. IMPRESSION: Prominent heart without pulmonary edema. Clear lungs. Normal [facility] BLOOD CULTUREon 08-28-2023 Bacteria identified Cx Nom (Unsp spec) NO GROWTH DAY 5 OF 5 Normal [facility] Comment on above: Order Comment: 2 Bot tles (1 Set - consists of 1 Aerobic bottle and 1 Anaerobic bottle) -1st Peripheral DrawFor syringe method draw:If able to obtain adequate sample (20 ml) inoculate anaerobic bottle firstIf inadequate sample obtained (less than 20 ml) inoculate aerobic bottle firstFor vacutainer method draw: Fill aerobic bottle first, then anaerobic Performed By: #### [facility] #### [facility] (DEFAULT) [address] [place] [address] Bacteria identified Cx Nom (Unsp spec) NO GROWTH DAY 5 OF 5 Normal [facility] Comment on above: Order Comment: 2 Bot tles (1 Set - consists of 1 Aerobic bottle and 1 Anaerobic bottle) -1st Peripheral DrawFor syringe method draw:If able to obtain adequate sample (20 ml) inoculate anaerobic bottle firstIf inadequate sample obtained (less than 20 ml) inoculate aerobic bottle firstFor vacutainer method draw: Fill aerobic bottle first, then anaerobic Performed By: #### H [facility] #### [facility] (DEFAULT) [address] [place] [address] DARYL AURIS SCREEN BY PCRo n 08-28-2023 Daryl auris Screen by PCR Not detected Normal Not Detected [facility] Comment on above: Order Comment: This test was performed using a real-time PCR assay. This test was developed, and its performance characteristics determined by [facility]. It has not been cleared or approved by the FDA. The laboratory is regulated under CLIA as qualified to perform high-complexity testing. This test is used for clinical purposes. It should not be regarded as investigational or for research. Performed By: #### H [facility] #### [facility] (DEFAULT) [address] [address] CBC AND ELECTRONIC DIFFon Abs Baso Auto < Normal 0.00-0.09 [facility] Comment on above: Performed By: #### Vale UNDERWOOD #### [facility] (DEFAULT) [address] [address] Basophils/100 WBC (Bld) 0.6 % Normal [facility] Comment on above: Performed By: #### Vale UNDERWOOD #### [facility] (DEFAULT) [address] [address] DIFF STATUS Electronic Differential Normal [facility] Comment on above: Performed By: #### Vale UNDERWOOD #### [facility] (DEFAULT) [address] [address] Eosinophils (Bld) [#/Vol] 0.10 10*3/uL Normal 0.00-0.48 [facility] Comment on above: Performed By: ###Walter UNDERWOOD #### [facility] (DEFAULT) [address] [address] Eosinophils/100 WBC (Bld) 2.1 % Normal [facility] Comment on above: Performed By: ###Walter UNDERWOOD #### [facility] (DEFAULT) [address] [address] Hematocrit (Bld) [Volume fraction] 37.9 % Low 39.6-48.8 [facility] Comment on above: Performed By: #### Vale UNDERWOOD #### [facility] (DEFAULT) [address] [address] Hemoglobin (Bld) [Mass/Vol] 12.4 g/dL Low 13.4-16.8 [facility] Comment on above: Performed By: #### Vale UNDERWOOD #### [facility] (DEFAULT) [address] [address] Immature Grans % 0.6 % Normal [facility] Comment on above: Performed By: #### Vale UNDERWOOD #### [facility] (DEFAULT) [address] [place] [address] Immature Grans Absolute < Normal <=0.07 [facility] Comment on above: Performed By: #### Vale UNDERWOOD #### [facility] (DEFAULT) [address] [place] [address] Lymphocytes (Bld) [#/Vol] 1.76 10*3/uL Normal 0.83-3.57 [facility] Comment on above: Performed By: #### G YASMINE #### [facility] (DEFAULT) [address] [address] Lymphocytes/100 WBC (Bld) 37.1 % Normal [facility] Comment on above: Performed By: #### Vale UNDERWOOD #### [facility] (DEFAULT) [address] [address] MCV (RBC) [Entitic vol] 85.0 fL Normal 79.0-94.5 [facility] Comment on above: Performed By: #### Vale UNDERWOOD #### [facility] (DEFAULT) [address] [address] Mean Cell Hgb 27.8 pg Normal 26.1-33.3 [facility] Comment on above: Performed By: #### Vale UNDREWOOD #### [facility] (DEFAULT) [address] [address] Mean Cell Hgb Conc 32.7 g/dL Normal 31.9-36.5 [facility] Comment on above: Performed By: #### Vale UNDERWOOD #### [facility] (DEFAULT) [address] [place] [address] Monocytes (Bld) [#/Vol] 0.66 10*3/uL Normal 0.24-0.93 [facility] Comment on above: Performed By: #### Vale UNDERWOOD #### [facility] (DEFAULT) [address] [place] [address] Monocytes/100 WBC (Bld) 13.9 % Normal [facility] Comment on above: Performed By: #### Vale UNDERWOOD #### [facility] (DEFAULT) [address] [address] Nucleated RBC 0.0 /100 WBC Normal <=0.2 [facility] Comment on above: Performed By: #### Vale UNDERWOOD #### [facility] (DEFAULT) [address] [address] Platelet mean volume (Bld) [Entitic vol] 9.3 fL Normal 8.7-12.3 [facility] Comment on above: Performed By: #### Vale UNDERWOOD #### [facility] (DEFAULT) [address] [address] Platelets (Bld) [#/Vol] 262 10*3/uL Normal 146-337 [facility] Comment on above: Performed By: #### Vale UNDERWOOD #### [facility] (DEFAULT) [address] [address] RBC (Bld) [#/Vol] 4.46 10*6/uL Normal 4.38-5.83 [facility] Comment on above: Performed By: ###Walter UNDERWOOD #### [facility] (DEFAULT) [address] [address] RBC Distribution 13.4 % Normal 10.9-14.3 [facility] Comment on above: Performed By: #### Vale UNDERWOOD #### [facility] (DEFAULT) [address] [address] Segs + Bands Auto 45.7 % Normal [facility] Comment on above: Performed By: #### Vale UNDERWOOD #### [facility] (DEFAULT) [address] [address] Segs + Bands,Absolute Auto 2.16 K/uL Normal 1.57-6.19 [facility] Comment on above: Performed By: #### Vale UNDERWOOD #### [facility] (DEFAULT) [address] [place] [address] WBC (Bld) [#/Vol] 4.74 10*3/uL Normal 3.73-10.10 [facility] Comment on above: Performed By: #### G YASMINE #### [facility] (DEFAULT) [address] [place] [address] Basophils (Bld) [#/Vol] K/uL 0.00 - 0.09 K/uL [facility] Basophils/100 WBC (Bld) 0.6 % [facility] Differential cell count method Nom (Bld) Electronic Differential [facility] Eosinophils (Bld) [#/Vol] 0.10 10*3/uL 0.00 - 0.48 K/uL [facility] Eosinophils/100 WBC (Bld) 2.1 % [facility] Erythrocyte distribution width (RBC) [Ratio] 13.4 % 10.9 - 14.3 % [facility] Hematocrit (Bld) [Volume fraction] 37.9 % Low 39.6 - 48.8 % [facility] Hemoglobin (Bld) [Mass/Vol] 12.4 g/dL Low 13.4 - 16.8 g/dL [facility] Immature granulocytes (Bld) [#/Vol] K/uL NINF - 0.07 K/uL [facility] Immature granulocytes/100 WBC (Bld) 0.6 % [facility] Interpretation and review of laboratory results Abnormal [facility] Lymphocytes (Bld) [#/Vol] 1.76 10*3/uL 0.83 - 3.57 K/uL [facility] Lymphocytes/100 WBC (Bld) 37.1 % [facility] MCH (RBC) [Entitic mass] 27.8 pg 26.1 - 33.3 pg [facility] MCHC (RBC) [Mass/Vol] 32.7 g/dL 31.9 - 36.5 g/dL [facility] MCV (RBC) [Entitic vol] 85.0 fL 79.0 - 94.5 fL [facility] Monocytes (Bld) [#/Vol] 0.66 10*3/uL 0.24 - 0.93 K/uL [facility] Monocytes/100 WBC (Bld) 13.9 % [facility] Neutrophils (Bld) [#/Vol] 2.16 10*3/uL 1.57 - 6.19 K/uL [facility] Nucleated RBC/100 WBC (Bld) [Ratio] 0.0 % NINF [facility] Platelet mean volume (Bld) [Entitic vol] 9.3 fL 8.7 - 12.3 fL [facility] Platelets (Bld) [#/Vol] 262 10*3/uL 146 - 337 K/uL [facility] RBC (Bld) [#/Vol] 4.46 10*6/uL [facility] Segmented neutrophils/100 WBC (Bld) 45.7 % [facility] WBC (Bld) [#/Vol] 4.74 10*3/uL 3.73 - 10. 10 K/uL [facility] CHEM 6 (LYTES, BUN CREA)on 0 08-28-2023 Anion gap [Moles/Vol] 13 mmol/L Normal 7-17 [facility] Comment on above: Performed By: #### C HM6 #### [facility] (DEFAULT) [address] [place] [address] Chloride [Moles/Vol] 103 mmol/L Normal 98-108 [facility] Comment on above: Performed By: #### C HM6 #### [facility] (DEFAULT) [address] [place] [address] CO2 [Moles/Vol] 22 mmol/L Normal 21-31 [facility] Comment on above: Performed By: #### C HM6 #### [facility] (DEFAULT) [address] [place] [address] Creatinine [Mass/Vol] 1.62 mg/dL High 0.70-1.30 [facility] Comment on above: Performed By: #### C HM6 #### [facility] (DEFAULT) [address] [place] [address] GFR/1.73 sq M.predicted among non-blacks MDRD (S/P/Bld) [Vol rate/Area] 51 mL/min/{1.73_m2} Low >=60 [facility] Comment on above: Result Comment: Repo rted eGFR is based on the CKD-EPI 2020 equation using creatinine, age, and sex. Performed By: #### C HM6 #### [facility] (DEFAULT) [address] [place] [address] Potassium [Moles/Vol] 4.3 mmol/L Normal 3.5-5.0 [facility] Comment on above: Performed By: #### C HM6 #### [facility] (DEFAULT) [address] [place] [address] Sodium [Moles/Vol] 134 mmol/L Low 135-145 [facility] Comment on above: Performed By: #### C HM6 #### [facility] (DEFAULT) [address] [place] [address] Urea nitrogen [Mass/Vol] 22 mg/dL Normal 7-25 [facility] Comment on above: Performed By: #### C HM6 #### [facility] (DEFAULT) [address] [place] [address] Urea nitrogen/Creatinine [Mass ratio] 14 mg/mg Normal [facility] Comment on above: Performed By: #### C HM6 #### [facility] (DEFAULT) [address] [place] [address] Anion gap [Moles/Vol] 13 mmol/L 7 - 17 mmol/L [facility] Chloride [Moles/Vol] 103 mmol/L 98 - 10 8 mmol/L [facility] CO2 [Moles/Vol] 22 mmol/L 21 - 31 mmol/L [facility] Creatinine [Mass/Vol] 1.62 mg/dL High 0.70 - 1.30 mg/dL [facility] eGFR, CKD-EPI, Male 51 Low - PINF [facility] Interpretation and review of laboratory results Abnormal [facility] Potassium [Moles/Vol] 4.3 mmol/L 3.5 - 5.0 mmol/L [facility] Sodium [Moles/Vol] 134 mmol/L Low 135 - 145 mmol/L [facility] Urea nitrogen [Mass/Vol] 22 mg/dL 7 - 25 mg/dL [facility] Urea nitrogen/Creatinine [Mass ratio] 14 mg/mg [facility] IMMUNOCOMPROMISED RESPIRATOR Y PANELon 08-28-2023 Adenovirus - Pcr Not detected Normal Not Detected [facility] Comment on above: Order Comment: Viral [...] nucleic acid assay. Performed By: #### [facility] #### [facility] (DEFAULT) [address] [address] Bordetella Parapertussis Not detected Normal Not Detected [facility] Comment on above: Order Comment: Viral [...] nucleic acid assay. Performed By: #### H [facility] #### [facility] (DEFAULT) [address] [address] Bordetella Pertussis Not detected Normal Not Detected [facility] Comment on above: Order Comment: Viral [...] nucleic acid assay. Performed By: #### H [facility] #### [facility] (DEFAULT) [address] [address] Chlamydia Pneumoniae Not detected Normal Not Detected [facility] Comment on above: Order Comment: Viral [...] assay. Performed By: #### H EMO #### [facility] (DEFAULT) [address] [address] Coronavirus 229E Not detected Normal Not Detected [facility] Comment on above: Order Comment: Viral [...] assay. Performed By: #### H EMO #### [facility] (DEFAULT) [address] [address] Coronavirus Hku1 Not detected Normal Not Detected [facility] Comment on above: Order Comment: Viral [...] nucleic acid assay. Performed By: #### [facility] #### [facility] (DEFAULT) [address] [address] Coronavirus Nl63 Not detected Normal Not Detected [facility] Comment on above: Order Comment: Viral [...] assay. Performed By: #### H EMO #### [facility] (DEFAULT) [address] [address] Coronavirus Oc43 Not detected Normal Not Detected [facility] Comment on above: Order Comment: Viral [...] assay. Performed By: #### H EMO #### [facility] (DEFAULT) [address] [address] Influenza A - Pcr Not detected Normal Not Detected [facility] Comment on above: Order Comment: [...] nucleic acid assay. Performed By: #### H [facility] #### [facility] (DEFAULT) [address] [place] [address] Influenza B - Pcr Not detected Normal Not Detected [facility] Comment on above: Order Comment: [...] nucleic acid assay. Performed By: #### H [facility] #### [facility] (DEFAULT) [address] [place] [address] Metapneumovirus - Pcr Not detected Normal Not Detected [facility] Comment on above: Order Comment: Viral [...] assay. Performed By: #### H EMO #### [facility] [address] [address] Mycoplasma Pneumoniae Not detected Normal Not Detected [facility] Comment on above: Order Comment: Viral [...] assay. Performed By: #### H EMO #### [facility] [address] [address] Parainfluenza 1 - Pcr Not detected Normal Not Detected [facility] Comment on above: Order Comment: Viral [...] assay. Performed By: #### H EMO #### [facility] (DEFAULT) [address] [address] Parainfluenza 2 - Pcr Not detected Normal Not Detected [facility] Comment on above: Order Comment: Viral [...] assay. Performed By: #### H EMO #### [facility] [address] [address] Parainfluenza 3 - Pcr Not detected Normal Not Detected [facility] Comment on above: Order Comment: Viral [...] nucleic acid assay. Performed By: #### H [facility] #### [facility] (DEFAULT) [address] [address] Parainfluenza 4 - Pcr Not detected Normal Not Detected [facility] Comment on above: Order Comment: Viral [...] assay. Performed By: #### H EMO #### [facility] (DEFAULT) [address] [address] Rhinovirus/Enteroviru s - PCR Not detected Normal Not Detected [facility] Comment on above: Order Comment: Viral [...] assay. Performed By: #### H EMO #### [facility] (DEFAULT) [address] [address] Rsv - Pcr Not detected Normal Not Detected [facility] Comment on above: Order Comment: Viral [...] nucleic acid assay. Performed By: #### H [facility] #### [facility] (DEFAULT) [address] [place] [address] SARS-CoV-2 (COVID-19) RNA ESTELITA+probe Ql (Unsp spec) Not detected Normal NOT DETECTED [facility] Comment on above: Order Comment: Viral [...] nucleic acid assay. Performed By: #### H [facility] #### [facility] (DEFAULT) [address] [place] [address] Portable XR Chest Viewson Radiology Study observation (narrative) [facility] Respiratory virus DNA+RNA NA A+probe Nom (Unsp spec)Ordered By: Dayami Harris on 08-28-2023 Adenovirus DNA ESTELITA+probe Nom (Unsp spec) Not detected Not Detected [facility] B. parapertussis DNA ESTELITA+probe Ql (Unsp spec) Not detected Not Detected [facility] B. pertussis DNA ESTELITA+probe Ql (Unsp spec) Not detected Not Detected [facility] C. pneumoniae DNA ESTELITA+probe Ql (Unsp spec) Not detected Not Detected [facility] FLUAV RNA ESTELITA+probe Ql (Unsp spec) Not detected Not Detected [facility] FLUBV RNA ESTELITA+probe Ql (Unsp spec) Not detected Not Detected [facility] HCoV 229E RNA ESTELITA+non-probe Ql (Nph) Not detected Not Detected [facility] HCoV HKU1 RNA ESTELITA+non-probe Ql (Nph) Not detected Not Detected [facility] HCoV NL63 RNA ESTELITA+non-probe Ql (Nph) Not detected Not Detected [facility] HCoV OC43 RNA ESTELITA+non-probe Ql (Nph) Not detected Not Detected [facility] hMPV A RNA ESTELITA+probe Ql (Unsp spec) Not detected Not Detected [facility] Interpretation and review of laboratory results Normal [facility] M. pneumoniae DNA ESTELITA+probe Ql (Unsp spec) Not detected Not Detected [facility] Parainfluenza virus 1 RNA ESTELITA+probe Ql (Unsp spec) Not detected Not Detected [facility] Parainfluenza virus 2 RNA ESTELITA+probe Ql (Unsp spec) Not detected Not Detected [facility] Parainfluenza virus 3 RNA ESTELITA+probe Ql (Unsp spec) Not detected Not Detected [facility] Parainfluenza virus 4 RNA ESTELITA+probe Ql (Unsp spec) Not detected Not Detected [facility] Rhinovirus+Enteroviru s RNA ESTELITA+probe Ql (Unsp spec) Not detected Not Detected [facility] RSV RNA ESTELITA+probe Ql (Unsp spec) Not detected Not Detected [facility] SARS-CoV-2 (COVID-19) RNA ESTELITA+probe Ql (Unsp spec) Not detected NOT DETECTED [facility] ALBUMINon 04-28-2023 Albumin [Mass/Vol] 4.0 g/dL Normal 3.4-5.0 [facility] Comment on above: Performed By: #### C MP #### [facility] [address] [place] [address] Dr. Dwight Waters ALKALINE PHOSPHAon 05-30-202 3 ALP [Catalytic activity/Vol] 106 U/L Normal 46-116 [facility] Comment on above: Performed By: #### F [id number] #### [facility] [address] [place] [address] Dr. Dwight Waters BILIRUBIN CONJUGATED (DIRECT )on 04-28-2023 BILI, CONJUGATED 0.3 mg/dL Critically high 0.0-0.2 [facility] Comment on above: Performed By: #### C MP #### [facility] [address] [place] [address] Dr. Dwight Waters BILIRUBIN TOTALon 04-28-2023 Bilirubin [Mass/Vol] 1.4 mg/dL Critically high 0.2-1.0 [facility] Comment on above: Performed By: #### C MP #### [facility] [address] [place] [address] Dr. Dwight Waters BUNon 04-28-2023 Urea nitrogen [Mass/Vol] 12.0 mg/dL Normal 7.0-18.0 [facility] Comment on above: Performed By: #### U RTPCR #### [facility] [address] [place] [address] Dr. Dwight Waters CALCIUMon 04-28-2023 Calcium [Mass/Vol] 9.3 mg/dL Normal 8.5-10.1 [facility] Comment on above: Performed By: #### U RTPCR #### [facility] [address] [place] [address] Dr. Dwight Waters CBC AUTO DIFFon 04-28-2023 BASO # 0.1 103/ul Normal 0.0-0.1 [facility] Comment on above: Performed By: #### C BC #### [facility] [address] [place] [address] Dr. Dwight Waters Basophils/100 WBC (Bld) 0.9 % Normal 0.2-2.0 [facility] Comment on above: Performed By: #### C BC #### [facility] [address] [place] [address] Dr. Dwight Waters EO # 0.2 103/ul Normal 0.0-0.7 [facility] Comment on above: Performed By: #### C BC #### [facility] [address] [place] [address] Dr. Dwight Waters Eosinophils/100 WBC (Bld) 3.8 % Normal 0.9-7.0 [facility] Comment on above: Performed By: #### C BC #### [facility] [address] [place] [address] Dr. Dwight Waters Erythrocyte distribution width (RBC) [Ratio] 12.5 % Normal 11.0-15.0 [facility] Comment on above: Performed By: #### C BC #### [facility] [address] [place] [address] Dr. Dwight Waters Hematocrit (Bld) [Volume fraction] 49.8 % Normal 42.0-54.0 [facility] Comment on above: Performed By: #### C BC #### [facility] [address] [place] [address] Dr. Dwight Waters Hemoglobin (Bld) [Mass/Vol] 16.4 g/dL Normal 14.0-18.0 [facility] Comment on above: Performed By: #### C BC #### [facility] [address] [place] [address] Dr. Dwight Waters IG # 0.01 10e3/ul Normal 0.00-0.03 [facility] Comment on above: Performed By: #### C BC #### [facility] [address] [place] [address] Dr. Dwight Waters IG % 0.2 % Normal 0.0-0.5 [facility] Comment on above: Performed By: #### C BC #### [facility] [address] [place] [address] Dr. Dwight Waters LYMPH # 2.1 103/ul Normal 1.2-3.8 [facility] Comment on above: Performed By: #### C BC #### [facility] [address] [place] [address] Dr. Dwight Waters Lymphocytes/100 WBC (Bld) 39.1 % Normal 20.5-60.0 [facility] Comment on above: Performed By: #### C BC #### [facility] [address] [place] [address] Dr. Dwight Waters MANUAL DIFF REQ NO Normal [facility] Comment on above: Performed By: #### C BC #### [facility] [address] [place] [address] Dr. Dwight Waters MCH (RBC) [Entitic mass] 28.6 pg Normal 25.9-34.0 [facility] Comment on above: Performed By: #### C BC #### [facility] [address] [place] [address] Dr. Dwight Waters MCHC (RBC) [Mass/Vol] 32.9 g/dL Normal 29.9-35.2 [facility] Comment on above: Performed By: #### C BC #### [facility] [address] [place] [address] Dr. Dwight Waters MCV (RBC) [Entitic vol] 86.9 fL Normal 80.0-94.0 [facility] Comment on above: Performed By: #### C BC #### [facility] [address] [place] [address] Dr. Dwight Waters MONO # 0.6 103/ul Normal 0.3-0.8 [facility] Comment on above: Performed By: #### C BC #### [facility] [address] [place] [address] Dr. Dwight Waters Monocytes/100 WBC (Bld) 10.6 % Normal 1.7-12.0 [facility] Comment on above: Performed By: #### C BC #### [facility] [address] [place] [address] Dr. Dwight Waters NEUT # 2.5 103/ul Normal 1.4-6.5 [facility] Comment on above: Performed By: #### C BC #### [facility] [address] [place] [address] Dr. Dwight Waters Neutrophils/100 WBC (Bld) 45.4 % Normal 43.0-75.0 [facility] Comment on above: Performed By: #### C BC #### [facility] [address] [place] [address] Dr. Dwight Waters Platelet mean volume (Bld) [Entitic vol] 9.3 fL Critically low 9.5-13.5 [facility] Comment on above: Performed By: #### C BC #### [facility] [address] [place] [address] Dr. Dwight Waters PLT 248 103/ul Normal 150-450 [facility] Comment on above: Performed By: #### C BC #### [facility] [address] [place] [address] Dr. Dwight Waters RBC 5.73 106/ul Normal 4.70-6.10 [facility] Comment on above: Performed By: #### C BC #### [facility] [address] [place] [address] Dr. Dwight Waters WBC 5.5 103/ul Normal 4.0-11.0 [facility] Comment on above: Performed By: #### C BC #### [facility] [address] [place] [address] Dr. Dwight Waters CHLORIDEon 04-28-2023 Chloride [Moles/Vol] 107 mmol/L Normal 98-107 [facility] Comment on above: Performed By: #### U RTPCR #### [facility] [address] [place] [address] Dr. Dwight Waters CO2on 04-28-2023 CO2 [Moles/Vol] 28.9 mmol/L Normal 21.0-32.0 [facility] Comment on above: Performed By: #### U RTPCR #### [facility] [address] [place] [address] Dr. Dwight Waters CREATININEon 04-28-2023 Creatinine [Mass/Vol] 1.17 mg/dL Normal 0.70-1.30 [facility] Comment on above: Performed By: #### U RTPCR #### [facility] [address] [place] [address] Dr. Dwight Waters EGFR-AF CUBAN >60 Normal >=60 [facility] Comment on above: Performed By: #### U RTPCR #### [facility] [address] [place] [address] Dr. Dwight Waters EGFR-NON AF CUBAN >60 Normal >=60 [facility] Comment on above: Performed By: #### U RTPCR #### [facility] [address] [place] [address] Dr. Dwight Waters GGTon 04-28-2023 Gamma glutamyl transferase [Catalytic activity/Vol] 27 U/L Normal 15-85 [facility] Comment on above: Performed By: #### U RTPCR #### [facility] [address] [place] [address] Dr. Dwight Waters GLUCOSE BLOODon 04-28-2023 Glucose [Mass/Vol] 110 mg/dL Critically high 74-106 [facility] Comment on above: Performed By: #### U RTPCR #### [facility] [address] [place] [address] Dr. Dwight Waters MAGNESIUMon 04-28-2023 Magnesium [Mass/Vol] 1.7 mg/dL Critically low 1.8-2.4 [facility] Comment on above: Performed By: #### U RTPCR #### [facility] [address] [place] [address] Dr. Dwight Waters NAon 04-28-2023 Sodium [Moles/Vol] 144 mmol/L Normal 136-145 [facility] Comment on above: Performed By: #### U RTPCR #### [facility] [address] [place] [address] Dr. Dwight Waters PHOSPHORUSon 04-28-2023 Phosphate [Mass/Vol] 3.2 mg/dL Normal 2.6-4.7 [facility] Comment on above: Performed By: #### U RTPCR #### [facility] [address] [place] [address] Dr. Dwight Waters POTASSIUMon 04-28-2023 Potassium [Moles/Vol] 4.0 mmol/L Normal 3.5-5.1 [facility] Comment on above: Performed By: #### U RTPCR #### [facility] [address] [place] [address] Dr. Dwight Waters SGOTon 04-28-2023 AST [Catalytic activity/Vol] 25 U/L Normal 15-37 [facility] Comment on above: Performed By: #### C MP #### [facility] [address] [place] [address] Dr. Dwight Waters SGPTon 04-28-2023 ALT [Catalytic activity/Vol] 40 U/L Normal 16-63 [facility] Comment on above: Performed By: #### C MP #### [facility] [address] [place] [address] Dr. Dwight Waters URINE T PROTEIN CREAT RATIOo n 04-28-2023 Protein (U) [Mass/Vol] 10.1 mg/dL Normal <=12.0 [facility] Comment on above: Performed By: #### U RTPCR #### [facility] [address] [place] [address] Dr. Dwight Waters UR PROT CREAT RAT 0.14 Normal [facility] Comment on above: Performed By: #### U RTPCR #### [facility] [address] [place] [address] Dr. Dwight Waters URINE CREAT 74.40 mg/dL Normal 20.00-300.00 [facility] Comment on above: Performed By: #### U RTPCR #### [facility] [address] [place] [address] Dr. Dwight Waters Office Visiton 04-13-2023 Follow-up visit [id number] George Styles 1970 M Date Provider Department Center 04/13/2023 MIGUEL PARADA [facility] Family History Problem Relation Age of Onset Coronary artery disease Mother Coronary artery disease Father Family Status - Relation Status Age at Mother Father Level of Service:74364 [place] OFFICE/OUTPATIENT ESTABLISHED LOW MDM 20-29 MIN Reason for Visit and Comments: Hypertension [417634] Hyperlipidemia [182] Normal [facility] BK VIRUS PCR QUANTon 023 BKV DNA QUANT PCR PLASMA Negative Normal Negative [facility] Comment on above: Result Comment: No B K DNA detected. . The linear range of the assay is 22 - 100,000,000 IU/mL. Performed By: #### B KVIRUS #### [facility] [address] [place] [address] Dr. Dwight Waters Log10 BKV DNA Plasma Normal [facility] Comment on above: Performed By: #### B KVIRUS #### [facility] [address] [place] [address] Dr. Dwight Waters FK506 (TACROLIMUS) WHOLE BLO ODon 03-04-2023 Tacrolimus (FK506), Blood 5.9 ng/mL Normal 2.0-20.0 [facility] Comment on above: Result Comment: Trou gh (immediately following transplant) 15.0 . Trough (steady state, 2 weeks or more after transplant): 3.0 - 8.0 . Performed by LC-MS/MS technology. Performed By: #### C MP #### [facility] [address] [place] [address] Dr. Dwight Waters ALBUMINon 03-02-2023 Albumin [Mass/Vol] 3.9 g/dL Normal 3.4-5.0 [facility] Comment on above: Performed By: #### U RTPCR #### [facility] [address] [place] [address] Dr. Dwight Waters ALKALINE PHOSPHAon ALP [Catalytic activity/Vol] 105 U/L Normal 46-116 [facility] Comment on above: Performed By: #### U RTPCR #### [facility] [address] [place] [address] Dr. Dwight Waters BILIRUBIN CONJUGATED (DIRECT )on 03-02-2023 BILI, CONJUGATED 0.2 mg/dL Normal 0.0-0.2 [facility] Comment on above: Performed By: #### U RTPCR #### [facility] [address] [place] [address] Dr. Dwight Waters BILIRUBIN TOTALon 03-02-2023 Bilirubin [Mass/Vol] 0.9 mg/dL Normal 0.2-1.0 [facility] Comment on above: Performed By: #### U RTPCR #### [facility] [address] [place] [address] Dr. Dwight Waters CBC AUTO DIFFon 03-02-2023 BASO # 0.1 103/ul Normal 0.0-0.1 [facility] Comment on above: Performed By: #### C BC #### [facility] [address] [place] [address] Dr. Dwight Waters Basophils/100 WBC (Bld) 0.9 % Normal 0.2-2.0 [facility] Comment on above: Performed By: #### C BC #### [facility] [address] [place] [address] Dr. Dwight Waters EO # 0.2 103/ul Normal 0.0-0.7 [facility] Comment on above: Performed By: #### C BC #### [facility] [address] [place] [address] Dr. Dwight Waters Eosinophils/100 WBC (Bld) 3.5 % Normal 0.9-7.0 [facility] Comment on above: Performed By: #### C BC #### [facility] [address] [place] [address] Dr. Dwight Waters Erythrocyte distribution width (RBC) [Ratio] 12.7 % Normal 11.0-15.0 [facility] Comment on above: Performed By: #### C BC #### [facility] [address] [place] [address] Dr. Dwight Waters Hematocrit (Bld) [Volume fraction] 48.2 % Normal 42.0-54.0 [facility] Comment on above: Performed By: #### C BC #### [facility] [address] [place] [address] Dr. Dwight Waters Hemoglobin (Bld) [Mass/Vol] 15.9 g/dL Normal 14.0-18.0 [facility] Comment on above: Performed By: #### C BC #### [facility] [address] [place] [address] Dr. Dwight Waters IG # 0.01 10e3/ul Normal 0.00-0.03 [facility] Comment on above: Performed By: #### C BC #### [facility] [address] [place] [address] Dr. Dwight Waters IG % 0.2 % Normal 0.0-0.5 [facility] Comment on above: Performed By: #### C BC #### [facility] [address] [place] [address] Dr. Dwihgt Waters LYMPH # 2.1 103/ul Normal 1.2-3.8 [facility] Comment on above: Performed By: #### C BC #### [facility] [address] [place] [address] Dr. Dwight Waters Lymphocytes/100 WBC (Bld) 37.4 % Normal 20.5-60.0 [facility] Comment on above: Performed By: #### C BC #### [facility] [address] [place] [address] Dr. Dwight Waters MANUAL DIFF REQ NO Normal [facility] Comment on above: Performed By: #### C BC #### [facility] [address] [place] [address] Dr. Dwight Waters MCH (RBC) [Entitic mass] 28.3 pg Normal 25.9-34.0 [facility] Comment on above: Performed By: #### C BC #### [facility] [address] [place] [address] Dr. Dwight Waters MCHC (RBC) [Mass/Vol] 33.0 g/dL Normal 29.9-35.2 [facility] Comment on above: Performed By: #### C BC #### [facility] [address] [place] [address] Dr. Dwight Waters MCV (RBC) [Entitic vol] 85.8 fL Normal 80.0-94.0 [facility] Comment on above: Performed By: #### C BC #### [facility] [address] [place] [address] Dr. Dwight Waters MONO # 0.6 103/ul Normal 0.3-0.8 [facility] Comment on above: Performed By: #### C BC #### [facility] [address] [place] [address] Dr. Dwight Waters Monocytes/100 WBC (Bld) 10.2 % Normal 1.7-12.0 [facility] Comment on above: Performed By: #### C BC #### [facility] [address] [place] [address] Dr. Dwight Waters NEUT # 2.7 103/ul Normal 1.4-6.5 [facility] Comment on above: Performed By: #### C BC #### [facility] [address] [place] [address] Dr. Dwight Waters Neutrophils/100 WBC (Bld) 47.8 % Normal 43.0-75.0 [facility] Comment on above: Performed By: #### C BC #### [facility] [address] [place] [address] Dr. Dwight Waters Platelet mean volume (Bld) [Entitic vol] 9.3 fL Critically low 9.5-13.5 [facility] Comment on above: Performed By: #### C BC #### [facility] [address] [place] [address] Dr. Dwight Waters PLT 241 103/ul Normal 150-450 [facility] Comment on above: Performed By: #### C BC #### [facility] [address] [place] [address] Dr. Dwight Waters RBC 5.62 106/ul Normal 4.70-6.10 [facility] Comment on above: Performed By: #### C BC #### [facility] [address] [place] [address] Dr. Dwight Waters WBC 5.7 103/ul Normal 4.0-11.0 [facility] Comment on above: Performed By: #### C BC #### [facility] [address] [place] [address] Dr. Dwight Waters GGTon 03-02-2023 Gamma glutamyl transferase [Catalytic activity/Vol] 25 U/L Normal 15-85 [facility] Comment on above: Performed By: #### U RTPCR #### [facility] [address] [place] [address] Dr. Dwight Waters MAGNESIUMon 03-02-2023 Magnesium [Mass/Vol] 1.6 mg/dL Critically low 1.8-2.4 [facility] Comment on above: Performed By: #### U RTPCR #### [facility] [address] [place] [address] Dr. Dwight Waters PHOSPHORUSon 03-02-2023 Phosphate [Mass/Vol] 3.6 mg/dL Normal 2.6-4.7 [facility] Comment on above: Performed By: #### U RTPCR #### [facility] [address] [place] [address] Dr. Dwight Waters PROF CHEM 8 (BAS METB)on Anion gap [Moles/Vol] 9.4 mmol/L Normal [facility] Comment on above: Performed By: #### U RTPCR #### [facility] [address] [place] [address] Dr. Dwight Waters Calcium [Mass/Vol] 9.3 mg/dL Normal 8.5-10.1 [facility] Comment on above: Performed By: #### U RTPCR #### [facility] [address] [place] [address] Dr. Dwight Waters Chloride [Moles/Vol] 108 mmol/L Critically high 98-107 [facility] Comment on above: Performed By: #### U RTPCR #### [facility] [address] [place] [address] Dr. Dwight Waters CO2 [Moles/Vol] 27.2 mmol/L Normal 21.0-32.0 [facility] Comment on above: Performed By: #### U RTPCR #### [facility] [address] [place] [address] Dr. Dwight Waters Creatinine [Mass/Vol] 1.12 mg/dL Normal 0.70-1.30 [facility] Comment on above: Performed By: #### U RTPCR #### [facility] [address] [place] [address] Dr. Dwight Waters EGFR-AF CUBAN >60 Normal >=60 [facility] Comment on above: Performed By: #### U RTPCR #### [facility] [address] [place] [address] Dr. Dwight Waters EGFR-NON AF CUBAN >60 Normal >=60 [facility] Comment on above: Performed By: #### U RTPCR #### [facility] [address] [place] [address] Dr. Dwight Waters Glucose [Mass/Vol] 113 mg/dL Critically high 74-106 [facility] Comment on above: Performed By: #### U RTPCR #### [facility] [address] [address] [address] Dwight Waters Potassium [Moles/Vol] 3.6 mmol/L Normal 3.5-5.1 [facility] Comment on above: Performed By: #### U RTPCR #### [facility] [address] [place] [address] Dr. Dwight Waters Sodium [Moles/Vol] 141 mmol/L Normal 136-145 [facility] Comment on above: Performed By: #### U RTPCR #### [facility] [address] [place] [address] Dr. Dwight Waters Urea nitrogen [Mass/Vol] 14.0 mg/dL Normal 7.0-18.0 [facility] Comment on above: Performed By: #### U RTPCR #### [facility] [address] [place] [address] Dr. Dwight Waters Urea nitrogen/Creatinine [Mass ratio] 12.5 mg/mg Normal [facility] Comment on above: Performed By: #### U RTPCR #### [facility] [address] [place] [address] Dr. Dwight Waters SGOTon 03-02-2023 AST [Catalytic activity/Vol] 20 U/L Normal 15-37 [facility] Comment on above: Performed By: #### U RTPCR #### [facility] [address] [place] [address] Dr. Dwight Waters SGPTon 03-02-2023 ALT [Catalytic activity/Vol] 30 U/L Normal 16-63 [facility] Comment on above: Performed By: #### U RTPCR #### [facility] [address] [place] [address] Dr. Dwight Waters URINE T PROTEIN CREAT RATIOo n 03-02-2023 Protein (U) [Mass/Vol] 10.3 mg/dL Normal <=12.0 [facility] Comment on above: Performed By: #### U RTPCR #### [facility] [address] [place] [address] Dr. Dwight Waters UR PROT CREAT RAT 0.15 Normal [facility] Comment on above: Performed By: #### U RTPCR #### [facility] [address] [place] [address] Dr. Dwight Waters URINE CREAT 68.96 mg/dL Normal 20.00-300.00 [facility] Comment on above: Performed By: #### U RTPCR #### [facility] [address] [place] [address] Dr. Dwight Waters BK VIRUS PCR QUANTon 023 BKV DNA QUANT PCR PLASMA Negative Normal Negative [facility] Comment on above: Result Comment: No B K DNA detected. . The linear range of the assay is 22 - 100,000,000 IU/mL. Performed By: #### C MP #### [facility] [address] [place] [address] Dr. Dwight Waters Log10 BKV DNA Plasma Normal [facility] Comment on above: Performed By: #### C MP #### [facility] [address] [place] [address] Dr. Dwight Waters FK506 (TACROLIMUS) WHOLE BLO ODon 12-31-2022 Tacrolimus (FK506), Blood 5.6 ng/mL Normal 2.0-20.0 [facility] Comment on above: Result Comment: Trou gh (immediately following transplant) 15.0 . Trough (steady state, 2 weeks or more after transplant): 3.0 - 8.0 . Performed by LC-MS/MS technology. Performed By: #### C MP #### [facility] [address] [place] [address] Dr. Dwight Waters ALKALINE PHOSPHAon ALP [Catalytic activity/Vol] 96 U/L Normal 46-116 [facility] Comment on above: Performed By: #### C BC #### [facility] [address] [place] [address] Dr. Dwight Waters BILIRUBIN CONJUGATED (DIRECT )on 12-29-2022 BILI, CONJUGATED 0.3 mg/dL Critically high 0.0-0.2 [facility] Comment on above: Performed By: #### C BC #### [facility] [address] [place] [address] Dr. Dwight Waters BILIRUBIN TOTALon 12-29-2022 Bilirubin [Mass/Vol] 1.1 mg/dL Critically high 0.2-1.0 [facility] Comment on above: Performed By: #### C BC #### [facility] [address] [place] [address] Dr. Dwight Waters CBC AUTO DIFFon 12-29-2022 BASO # 0.1 103/ul Normal 0.0-0.1 [facility] Comment on above: Performed By: #### C MP #### [facility] [address] [place] [address] Dr. Dwight Waters Basophils/100 WBC (Bld) 0.8 % Normal 0.2-2.0 [facility] Comment on above: Performed By: #### C MP #### [facility] [address] [place] [address] Dr. Dwight Waters EO # 0.2 103/ul Normal 0.0-0.7 [facility] Comment on above: Performed By: #### C MP #### [facility] [address] [place] [address] Dr. Dwight Waters Eosinophils/100 WBC (Bld) 3.0 % Normal 0.9-7.0 [facility] Comment on above: Performed By: #### C MP #### [facility] [address] [place] [address] Dr. Dwight Waters Erythrocyte distribution width (RBC) [Ratio] 12.9 % Normal 11.0-15.0 [facility] Comment on above: Performed By: #### C MP #### [facility] [address] [place] [address] Dr. Dwight Waters Hematocrit (Bld) [Volume fraction] 46.9 % Normal 42.0-54.0 [facility] Comment on above: Performed By: #### C MP #### [facility] [address] [place] [address] Dr. Dwight Waters Hemoglobin (Bld) [Mass/Vol] 16.1 g/dL Normal 14.0-18.0 [facility] Comment on above: Performed By: #### C MP #### [facility] [address] [place] [address] Dr. Dwight Waters IG # 0.01 10e3/ul Normal 0.00-0.03 [facility] Comment on above: Performed By: #### C MP #### [facility] [address] [place] [address] Dr. Dwight Waters IG % 0.2 % Normal 0.0-0.5 [facility] Comment on above: Performed By: #### C MP #### [facility] [address] [place] [address] Dr. Dwight Waters LYMPH # 1.8 103/ul Normal 1.2-3.8 [facility] Comment on above: Performed By: #### C MP #### [facility] [address] [place] [address] Dr. Dwight Waters Lymphocytes/100 WBC (Bld) 27.9 % Normal 20.5-60.0 [facility] Comment on above: Performed By: #### C MP #### [facility] [address] [place] [address] Dr. Dwight Waters MANUAL DIFF REQ NO Normal [facility] Comment on above: Performed By: #### C MP #### [facility] [address] [place] [address] Dr. Dwight Waters MCH (RBC) [Entitic mass] 28.5 pg Normal 25.9-34.0 [facility] Comment on above: Performed By: #### C MP #### [facility] [address] [place] [address] Dr. Dwight Waters MCHC (RBC) [Mass/Vol] 34.3 g/dL Normal 29.9-35.2 [facility] Comment on above: Performed By: #### C MP #### [facility] [address] [place] [address] Dr. Dwight Waters MCV (RBC) [Entitic vol] 83.2 fL Normal 80.0-94.0 [facility] Comment on above: Performed By: #### C MP #### [facility] [address] [place] [address] Dr. Dwight Waters MONO # 0.5 103/ul Normal 0.3-0.8 [facility] Comment on above: Performed By: #### C MP #### [facility] [address] [place] [address] Dr. Dwight Waters Monocytes/100 WBC (Bld) 8.1 % Normal 1.7-12.0 [facility] Comment on above: Performed By: #### C MP #### [facility] [address] [place] [address] Dr. Dwight Waters NEUT # 3.8 103/ul Normal 1.4-6.5 [facility] Comment on above: Performed By: #### C MP #### [facility] [address] [place] [address] Dr. Dwight Waters Neutrophils/100 WBC (Bld) 60.0 % Normal 43.0-75.0 [facility] Comment on above: Performed By: #### C MP #### [facility] [address] [place] [address] Dr. Dwight Waters Platelet mean volume (Bld) [Entitic vol] 9.2 fL Critically low 9.5-13.5 [facility] Comment on above: Performed By: #### C MP #### [facility] [address] [place] [address] Dr. Dwight Waters PLT 225 103/ul Normal 150-450 [facility] Comment on above: Performed By: #### C MP #### [facility] [address] [place] [address] Dr. Dwight Waters RBC 5.64 106/ul Normal 4.70-6.10 [facility] Comment on above: Performed By: #### C MP #### [facility] [address] [address] [address] Dwight Waters WBC 6.3 103/ul Normal 4.0-11.0 [facility] Comment on above: Performed By: #### C MP #### [facility] [address] [address] [address] Dwight Waters GGTon 12-29-2022 Gamma glutamyl transferase [Catalytic activity/Vol] 24 U/L Normal 15-85 [facility] Comment on above: Performed By: #### C MP #### [facility] [address] [address] [address] Dwight Waters LIPID PROFILEon 12-29-2022 CHOL-HDL RATIO NORM SEE BELOW Normal [facility] Comment on above: Result Comment: 3.3 - 4.4 LOW RISK 4.4 - 7.1 AVERAGE RISK 7.1 - 11.0 MODERATE RISK >11.0 HIGH RISK Performed By: #### U RTPCR #### [facility] [address] [place] [address] Dr. Dwight Waters Cholesterol [Mass/Vol] 87 mg/dL Normal <=200 [facility] Comment on above: Performed By: #### U RTPCR #### [facility] [address] [place] [address] Dr. Dwight Waters Cholesterol in HDL [Mass/Vol] 44 mg/dL Normal 40-60 [facility] Comment on above: Performed By: #### U RTPCR #### [facility] [address] [address] [address] Dwight Waters Cholesterol in LDL [Mass/Vol] 33.0 mg/dL Normal [facility] Comment on above: Performed By: #### U RTPCR #### [facility] [address] [address] [address] Dwight Waters Cholesterol.total/Cho lesterol in HDL [Mass ratio] 2.0 {ratio} Normal [facility] Comment on above: Performed By: #### U RTPCR #### [facility] [address] [address] [address] Dwight Waters HDL NORMAL > or = 60 mg/dl - LO W CARDIOVASCULAR RISK <40 mg/dl - HIGH CARDIOVASCULAR RISK Normal [facility] Comment on above: Performed By: #### U RTPCR #### [facility] [address] [address] [address] Dwight Waters LDL CALC NORMAL SEE BELOW Normal [facility] Comment on above: Result Comment: <100 mg/dl OPTIMAL 100 - 129 mg/dl NEAR OR ABOVE OPTIMAL 130 - 159 mg/dl BORDERLINE HIGH 160 - 189 mg/dl HIGH >190 mg/dl VERY HIGH Performed By: #### U RTPCR #### [facility] [address] [address] [address] Dwight Waters Triglyceride [Mass/Vol] 50 mg/dL Normal <=150 [facility] Comment on above: Performed By: #### U RTPCR #### [facility] [address] [address] [address] Dwight Waters VLDL CALC 10.0 mg/dL Normal [facility] Comment on above: Performed By: #### U RTPCR #### [facility] [address] [address] [address] Dwight Waters MAGNESIUMon 12-29-2022 Magnesium [Mass/Vol] 1.6 mg/dL Critically low 1.8-2.4 [facility] Comment on above: Performed By: #### C BC #### [facility] [address] [address] [address] Dwight Waters RENAL FUNCTION PANELon 12-29 Albumin [Mass/Vol] 3.9 g/dL Normal 3.4-5.0 [facility] Comment on above: Performed By: #### C BC #### [facility] [address] [address] [address] Dwight Waters Calcium [Mass/Vol] 9.2 mg/dL Normal 8.5-10.1 [facility] Comment on above: Performed By: #### C BC #### [facility] [address] [address] [address] Dwight Waters Chloride [Moles/Vol] 109 mmol/L Critically high 98-107 [facility] Comment on above: Performed By: #### C BC #### [facility] [address] [address] [address] Dwight Waters CO2 [Moles/Vol] 27.0 mmol/L Normal 21.0-32.0 [facility] Comment on above: Performed By: #### C BC #### [facility] [address] [address] [address] Dwight Waters Creatinine [Mass/Vol] 1.02 mg/dL Normal 0.70-1.30 [facility] Comment on above: Performed By: #### C BC #### [facility] [address] [address] [address] Dwight Waters EGFR-AF CUBAN >60 Normal >=60 [facility] Comment on above: Performed By: #### C BC #### [facility] [address] [place] [address] Dr. Dwight Waters EGFR-NON AF CUBAN >60 Normal >=60 [facility] Comment on above: Performed By: #### C BC #### [facility] [address] [address] [address] Dwight Waters Glucose [Mass/Vol] 117 mg/dL Critically high 74-106 [facility] Comment on above: Performed By: #### C BC #### [facility] [address] [address] [address] Dwight Waters Phosphate [Mass/Vol] 3.2 mg/dL Normal 2.6-4.7 [facility] Comment on above: Performed By: #### C BC #### [facility] [address] [address] [address] Dwight Waters Potassium [Moles/Vol] 4.1 mmol/L Normal 3.5-5.1 [facility] Comment on above: Performed By: #### C BC #### [facility] [address] [address] [address] Dwight Waters Sodium [Moles/Vol] 144 mmol/L Normal 136-145 [facility] Comment on above: Performed By: #### C BC #### [facility] [address] [place] [address] Dr. Dwight Waters Urea nitrogen [Mass/Vol] 13.0 mg/dL Normal 7.0-18.0 [facility] Comment on above: Performed By: #### C BC #### [facility] [address] [place] [address] Dr. Dwight Waters SGOTon 12-29-2022 AST [Catalytic activity/Vol] 21 U/L Normal 15-37 [facility] Comment on above: Performed By: #### C BC #### [facility] [address] [place] [address] Dr. Dwight Waters SGPTon 12-29-2022 ALT [Catalytic activity/Vol] 32 U/L Normal 16-63 [facility] Comment on above: Performed By: #### C BC #### [facility] [address] [place] [address] Dr. Dwight Waters URINE T PROTEIN CREAT RATIOo n 12-29-2022 Protein (U) [Mass/Vol] 14.3 mg/dL Critically high <=12.0 [facility] Comment on above: Performed By: #### U RTPCR #### [facility] [address] [place] [address] Dr. Dwight Waters UR PROT CREAT RAT 0.17 Normal [facility] Comment on above: Performed By: #### U RTPCR #### [facility] [address] [place] [address] Dr. Dwight Waters URINE CREAT 86.58 mg/dL Normal 20.00-300.00 [facility] Comment on above: Performed By: #### U RTPCR #### [facility] [address] [place] [address] Dr. Dwight Waters FK506 (TACROLIMUS) WHOLE BLO ODon 11-06-2022 Tacrolimus (FK506), Blood 4.9 ng/mL Normal 2.0-20.0 [facility] Comment on above: Result Comment: Trou gh (immediately following transplant) 15.0 . Trough (steady state, 2 weeks or more after transplant): 3.0 - 8.0 . Performed by LC-MS/MS technology. Performed By: #### U RTPCR #### [facility] [address] [place] [address] Dr. Dwight Waters ALKALINE PHOSPHAon ALP [Catalytic activity/Vol] 86 U/L Normal 46-116 [facility] Comment on above: Performed By: #### U RTPCR #### [facility] [address] [place] [address] Dr. Dwight Waters BILIRUBIN CONJUGATED (DIRECT )on 11-04-2022 BILI, CONJUGATED 0.2 mg/dL Normal 0.0-0.2 [facility] Comment on above: Performed By: #### U RTPCR #### [facility] [address] [place] [address] Dr. Dwight Waters BILIRUBIN TOTALon 11-04-2022 Bilirubin [Mass/Vol] 0.8 mg/dL Normal 0.2-1.0 [facility] Comment on above: Performed By: #### U RTPCR #### [facility] [address] [place] [address] Dr. Dwight Waters CBC AUTO DIFFon 11-04-2022 BASO # 0.1 103/ul Normal 0.0-0.1 [facility] Comment on above: Performed By: #### U RTPCR #### [facility] [address] [place] [address] Dr. Dwight Waters Basophils/100 WBC (Bld) 0.9 % Normal 0.2-2.0 [facility] Comment on above: Performed By: #### U RTPCR #### [facility] [address] [place] [address] Dr. Dwight Waters EO # 0.2 103/ul Normal 0.0-0.7 [facility] Comment on above: Performed By: #### U RTPCR #### [facility] [address] [place] [address] Dr. Dwight Waters Eosinophils/100 WBC (Bld) 3.7 % Normal 0.9-7.0 [facility] Comment on above: Performed By: #### U RTPCR #### [facility] [address] [place] [address] Dr. Dwight Waters Erythrocyte distribution width (RBC) [Ratio] 12.9 % Normal 11.0-15.0 [facility] Comment on above: Performed By: #### U RTPCR #### [facility] [address] [place] [address] Dr. Dwight Waters Hematocrit (Bld) [Volume fraction] 48.3 % Normal 42.0-54.0 [facility] Comment on above: Performed By: #### U RTPCR #### [facility] [address] [place] [address] Dr. Dwight Waters Hemoglobin (Bld) [Mass/Vol] 15.6 g/dL Normal 14.0-18.0 [facility] Comment on above: Performed By: #### U RTPCR #### [facility] [address] [place] [address] Dr. Dwight Waters IG # 0.01 10e3/ul Normal 0.00-0.03 [facility] Comment on above: Performed By: #### U RTPCR #### [facility] [address] [place] [address] Dr. Dwight Waters IG % 0.2 % Normal 0.0-0.5 [facility] Comment on above: Performed By: #### U RTPCR #### [facility] [address] [place] [address] Dr. Dwight Waters LYMPH # 1.9 103/ul Normal 1.2-3.8 [facility] Comment on above: Performed By: #### U RTPCR #### [facility] [address] [place] [address] Dr. Dwight Waters Lymphocytes/100 WBC (Bld) 33.0 % Normal 20.5-60.0 [facility] Comment on above: Performed By: #### U RTPCR #### [facility] [address] [place] [address] Dr. Dwight Waters MANUAL DIFF REQ NO Normal [facility] Comment on above: Performed By: #### U RTPCR #### [facility] [address] [place] [address] Dr. Dwight Waters MCH (RBC) [Entitic mass] 27.6 pg Normal 25.9-34.0 [facility] Comment on above: Performed By: #### U RTPCR #### [facility] [address] [place] [address] Dr. Dwight Waters MCHC (RBC) [Mass/Vol] 32.3 g/dL Normal 29.9-35.2 [facility] Comment on above: Performed By: #### U RTPCR #### [facility] [address] [place] [address] Dr. Dwight Waters MCV (RBC) [Entitic vol] 85.5 fL Normal 80.0-94.0 [facility] Comment on above: Performed By: #### U RTPCR #### [facility] [address] [place] [address] Dr. Dwight Waters MONO # 0.5 103/ul Normal 0.3-0.8 [facility] Comment on above: Performed By: #### U RTPCR #### [facility] [address] [place] [address] Dr. Dwight Waters Monocytes/100 WBC (Bld) 8.8 % Normal 1.7-12.0 [facility] Comment on above: Performed By: #### U RTPCR #### [facility] [address] [place] [address] Dr. Dwight Waters NEUT # 3.1 103/ul Normal 1.4-6.5 [facility] Comment on above: Performed By: #### U RTPCR #### [facility] [address] [place] [address] Dr. Dwight Waters Neutrophils/100 WBC (Bld) 53.4 % Normal 43.0-75.0 [facility] Comment on above: Performed By: #### U RTPCR #### [facility] [address] [place] [address] Dr. Dwihgt Wtaers Platelet mean volume (Bld) [Entitic vol] 9.2 fL Critically low 9.5-13.5 [facility] Comment on above: Performed By: #### U RTPCR #### [facility] [address] [address] [address] Dwight Waters PLT 255 103/ul Normal 150-450 [facility] Comment on above: Performed By: #### U RTPCR #### [facility] [address] [place] [address] Dr. Dwight Waters RBC 5.65 106/ul Normal 4.70-6.10 [facility] Comment on above: Performed By: #### U RTPCR #### [facility] [address] [address] [address] Dwight Waters WBC 5.7 103/ul Normal 4.0-11.0 [facility] Comment on above: Performed By: #### U RTPCR #### [facility] [address] [place] [address] Dr. Dwight Waters GGTon 11-04-2022 Gamma glutamyl transferase [Catalytic activity/Vol] 22 U/L Normal 15-85 [facility] Comment on above: Performed By: #### U RTPCR #### [facility] [address] [place] [address] Dr. Dwight Waters MAGNESIUMon 11-04-2022 Magnesium [Mass/Vol] 1.8 mg/dL Normal 1.8-2.4 [facility] Comment on above: Performed By: #### U RTPCR #### [facility] [address] [place] [address] Dr. Dwight Waters RENAL FUNCTION PANELon 11-04 Albumin [Mass/Vol] 3.8 g/dL Normal 3.4-5.0 [facility] Comment on above: Performed By: #### U RTPCR #### [facility] [address] [place] [address] Dr. Dwight Waters Calcium [Mass/Vol] 9.3 mg/dL Normal 8.5-10.1 [facility] Comment on above: Performed By: #### U RTPCR #### [facility] [address] [place] [address] Dr. Dwight Waters Chloride [Moles/Vol] 107 mmol/L Normal 98-107 [facility] Comment on above: Performed By: #### U RTPCR #### [facility] [address] [address] [address] Dwight Waters CO2 [Moles/Vol] 29.2 mmol/L Normal 21.0-32.0 [facility] Comment on above: Performed By: #### U RTPCR #### [facility] [address] [place] [address] Dr. Dwight Waters Creatinine [Mass/Vol] 1.07 mg/dL Normal 0.70-1.30 [facility] Comment on above: Performed By: #### U RTPCR #### [facility] [address] [place] [address] Dr. Dwight Waters EGFR-AF CUBAN >60 Normal >=60 [facility] Comment on above: Performed By: #### U RTPCR #### [facility] [address] [place] [address] Dr. Dwight Waters EGFR-NON AF CUBAN >60 Normal >=60 [facility] Comment on above: Performed By: #### U RTPCR #### [facility] [address] [place] [address] Dr. Dwight Waters Glucose [Mass/Vol] 106 mg/dL Normal 74-106 [facility] Comment on above: Performed By: #### U RTPCR #### [facility] [address] [place] [address] Dr. Dwight Waters Phosphate [Mass/Vol] 2.8 mg/dL Normal 2.6-4.7 [facility] Comment on above: Performed By: #### U RTPCR #### [facility] [address] [place] [address] Dr. Dwight Waters Potassium [Moles/Vol] 4.1 mmol/L Normal 3.5-5.1 [facility] Comment on above: Performed By: #### U RTPCR #### [facility] [address] [place] [address] Dr. Dwight Waters Sodium [Moles/Vol] 143 mmol/L Normal 136-145 [facility] Comment on above: Performed By: #### U RTPCR #### [facility] [address] [place] [address] Dr. Dwight Waters Urea nitrogen [Mass/Vol] 12.0 mg/dL Normal 7.0-18.0 [facility] Comment on above: Performed By: #### U RTPCR #### [facility] [address] [place] [address] Dr. Dwight Waters SGOTon 11-04-2022 AST [Catalytic activity/Vol] 19 U/L Normal 15-37 [facility] Comment on above: Performed By: #### U RTPCR #### [facility] [address] [place] [address] Dr. Dwight Waters SGPTon 11-04-2022 ALT [Catalytic activity/Vol] 28 U/L Normal 16-63 [facility] Comment on above: Performed By: #### U RTPCR #### [facility] [address] [place] [address] Dr. Dwight Waters URINE T PROTEIN CREAT RATIOo n 11-04-2022 Protein (U) [Mass/Vol] 10.7 mg/dL Normal <=12.0 [facility] Comment on above: Performed By: #### U RTPCR #### [facility] [address] [place] [address] Dr. Dwight Waters UR PROT CREAT RAT 0.13 Normal [facility] Comment on above: Performed By: #### U RTPCR #### [facility] [address] [place] [address] Dr. Dwight Waters URINE CREAT 84.50 mg/dL Normal 20.00-300.00 [facility] Comment on above: Performed By: #### U RTPCR #### [facility] [address] [place] [address] Dr. Dwight Waters FK506 (TACROLIMUS) WHOLE BLO ODon 09-18-2022 Tacrolimus (FK506), Blood 4.6 ng/mL Normal 2.0-20.0 [facility] Comment on above: Result Comment: Trou gh (immediately following transplant) 15.0 . Trough (steady state, 2 weeks or more after transplant): 3.0 - 8.0 . Performed by LC-MS/MS technology. Performed By: #### U RTPCR #### [facility] [address] [place] [address] Dr. Dwight Waters BK VIRUS PCR QUANTon 022 BKV DNA QUANT PCR PLASMA Negative Normal Negative [facility] Comment on above: Result Comment: No B K DNA detected. . The linear range of the assay is 22 - 100,000,000 IU/mL. Performed By: #### U RTPCR #### [facility] [address] [place] [address] Dr. Dwight Waters Log10 BKV DNA Plasma Normal [facility] Comment on above: Performed By: #### U RTPCR #### [facility] [address] [place] [address] Dr. Dwight Waters ALKALINE PHOSPHAon ALP [Catalytic activity/Vol] 92 U/L Normal 46-116 [facility] Comment on above: Performed By: #### U RTPCR #### [facility] [address] [place] [address] Dr. Dwight Waters BILIRUBIN CONJUGATED (DIRECT )on 09-15-2022 BILI, CONJUGATED 0.3 mg/dL Critically high 0.0-0.2 [facility] Comment on above: Performed By: #### U RTPCR #### [facility] [address] [place] [address] Dr. Dwight Waters BILIRUBIN TOTALon 09-15-2022 Bilirubin [Mass/Vol] 1.1 mg/dL Critically high 0.2-1.0 [facility] Comment on above: Performed By: #### U RTPCR #### [facility] [address] [place] [address] Dr. Dwight Waters CBC AUTO DIFFon 09-15-2022 BASO # 0.1 103/ul Normal 0.0-0.1 [facility] Comment on above: Performed By: #### C BC #### [facility] [address] [place] [address] Dr. Dwight Waters Basophils/100 WBC (Bld) 0.8 % Normal 0.2-2.0 [facility] Comment on above: Performed By: #### C BC #### [facility] [address] [place] [address] Dr. Dwight Waters EO # 0.2 103/ul Normal 0.0-0.7 [facility] Comment on above: Performed By: #### C BC #### [facility] [address] [place] [address] Dr. Dwight Waters Eosinophils/100 WBC (Bld) 3.5 % Normal 0.9-7.0 [facility] Comment on above: Performed By: #### C BC #### [facility] [address] [place] [address] Dr. Dwight Waters Erythrocyte distribution width (RBC) [Ratio] 13.0 % Normal 11.0-15.0 [facility] Comment on above: Performed By: #### C BC #### [facility] [address] [place] [address] Dr. Dwight Waters Hematocrit (Bld) [Volume fraction] 50.0 % Normal 42.0-54.0 [facility] Comment on above: Performed By: #### C BC #### [facility] [address] [place] [address] Dr. Dwight Waters Hemoglobin (Bld) [Mass/Vol] 16.0 g/dL Normal 14.0-18.0 [facility] Comment on above: Performed By: #### C BC #### [facility] [address] [place] [address] Dr. Dwight Waters IG # 0.02 10e3/ul Normal 0.00-0.03 [facility] Comment on above: Performed By: #### C BC #### [facility] [address] [place] [address] Dr. Dwight Waters IG % 0.3 % Normal 0.0-0.5 [facility] Comment on above: Performed By: #### C BC #### [facility] [address] [place] [address] Dr. Dwight Waters LYMPH # 1.8 103/ul Normal 1.2-3.8 [facility] Comment on above: Performed By: #### C BC #### [facility] [address] [place] [address] Dr. Dwight Waters Lymphocytes/100 WBC (Bld) 26.5 % Normal 20.5-60.0 [facility] Comment on above: Performed By: #### C BC #### [facility] [address] [place] [address] Dr. Dwight Waters MANUAL DIFF REQ NO Normal [facility] Comment on above: Performed By: #### C BC #### [facility] [address] [place] [address] Dr. Dwight Waters MCH (RBC) [Entitic mass] 28.1 pg Normal 25.9-34.0 [facility] Comment on above: Performed By: #### C BC #### [facility] [address] [place] [address] Dr. Dwight Waters MCHC (RBC) [Mass/Vol] 32.0 g/dL Normal 29.9-35.2 [facility] Comment on above: Performed By: #### C BC #### [facility] [address] [place] [address] Dr. Dwight Waters MCV (RBC) [Entitic vol] 87.9 fL Normal 80.0-94.0 [facility] Comment on above: Performed By: #### C BC #### [facility] [address] [place] [address] Dr. Dwight Waters MONO # 0.5 103/ul Normal 0.3-0.8 [facility] Comment on above: Performed By: #### C BC #### [facility] [address] [place] [address] Dr. Dwight Waters Monocytes/100 WBC (Bld) 8.1 % Normal 1.7-12.0 [facility] Comment on above: Performed By: #### C BC #### [facility] [address] [place] [address] Dr. Dwight Waters NEUT # 4.0 103/ul Normal 1.4-6.5 [facility] Comment on above: Performed By: #### C BC #### [facility] [address] [place] [address] Dr. Dwight Waters Neutrophils/100 WBC (Bld) 60.8 % Normal 43.0-75.0 [facility] Comment on above: Performed By: #### C BC #### [facility] [address] [place] [address] Dr. Dwight Waters Platelet mean volume (Bld) [Entitic vol] 9.4 fL Critically low 9.5-13.5 [facility] Comment on above: Performed By: #### C BC #### [facility] [address] [place] [address] Dr. Dwight Waters PLT 265 103/ul Normal 150-450 [facility] Comment on above: Performed By: #### C BC #### [facility] [address] [place] [address] Dr. Dwight Waters RBC 5.69 106/ul Normal 4.70-6.10 [facility] Comment on above: Performed By: #### C BC #### [facility] [address] [place] [address] Dr. Dwight Waters WBC 6.6 103/ul Normal 4.0-11.0 [facility] Comment on above: Performed By: #### C BC #### [facility] [address] [place] [address] Dr. Dwight Waters GGTon 09-15-2022 Gamma glutamyl transferase [Catalytic activity/Vol] 23 U/L Normal 15-85 [facility] Comment on above: Performed By: #### U RTPCR #### [facility] [address] [place] [address] Dr. Dwight Waters MAGNESIUMon 09-15-2022 Magnesium [Mass/Vol] 1.8 mg/dL Normal 1.8-2.4 [facility] Comment on above: Performed By: #### U RTPCR #### [facility] [address] [place] [address] Dr. Dwight Waters RENAL FUNCTION PANELon 09-15 Albumin [Mass/Vol] 4.1 g/dL Normal 3.4-5.0 [facility] Comment on above: Performed By: #### C BC #### [facility] [address] [address] [address] Dwight Waters Calcium [Mass/Vol] 9.3 mg/dL Normal 8.5-10.1 [facility] Comment on above: Performed By: #### C BC #### [facility] [address] [address] [address] Dwight Waters Chloride [Moles/Vol] 107 mmol/L Normal 98-107 [facility] Comment on above: Performed By: #### C BC #### [facility] [address] [place] [address] Dr. Dwight Waters CO2 [Moles/Vol] 25.6 mmol/L Normal 21.0-32.0 [facility] Comment on above: Performed By: #### C BC #### [facility] [address] [place] [address] Dr. Dwight Waters Creatinine [Mass/Vol] 1.01 mg/dL Normal 0.70-1.30 [facility] Comment on above: Performed By: #### C BC #### [facility] [address] [place] [address] Dr. Dwight Waters EGFR-AF CUBAN >60 Normal >=60 [facility] Comment on above: Performed By: #### C BC #### [facility] [address] [place] [address] Dr. Dwight Waters EGFR-NON AF CUBAN >60 Normal >=60 [facility] Comment on above: Performed By: #### C BC #### [facility] [address] [address] [address] Dwight Waters Glucose [Mass/Vol] 119 mg/dL Critically high 74-106 [facility] Comment on above: Performed By: #### C BC #### [facility] [address] [place] [address] Dr. Dwight Waters Phosphate [Mass/Vol] 2.8 mg/dL Normal 2.6-4.7 [facility] Comment on above: Performed By: #### C BC #### [facility] [address] [place] [address] Dr. Dwight Waters Potassium [Moles/Vol] 4.0 mmol/L Normal 3.5-5.1 [facility] Comment on above: Performed By: #### C BC #### [facility] [address] [place] [address] Dr. Dwight Waters Sodium [Moles/Vol] 141 mmol/L Normal 136-145 [facility] Comment on above: Performed By: #### C BC #### [facility] [address] [place] [address] Dr. Dwight Waters Urea nitrogen [Mass/Vol] 15.0 mg/dL Normal 7.0-18.0 [facility] Comment on above: Performed By: #### C BC #### [facility] [address] [place] [address] Dr. Dwight Waters SGOTon 09-15-2022 AST [Catalytic activity/Vol] 18 U/L Normal 15-37 [facility] Comment on above: Performed By: #### U RTPCR #### [facility] [address] [place] [address] Dr. Dwight Waters SGPTon 09-15-2022 ALT [Catalytic activity/Vol] 32 U/L Normal 16-63 [facility] Comment on above: Performed By: #### C BC #### [facility] [address] [place] [address] Dr. Dwight Waters URINE T PROTEIN CREAT RATIOo n 09-15-2022 Protein (U) [Mass/Vol] 14.1 mg/dL Critically high <=12.0 [facility] Comment on above: Performed By: #### U RTPCR #### [facility] [address] [place] [address] Dr. Dwight Waters UR PROT CREAT RAT 0.14 Normal [facility] Comment on above: Performed By: #### U RTPCR #### [facility] [address] [place] [address] Dr. Dwight Waters URINE CREAT 98.89 mg/dL Normal 20.00-300.00 [facility] Comment on above: Performed By: #### U RTPCR #### [facility] [address] [address] [address] Dwight Waters US CAROTID ART BILon 29-2 022 US CAROTID ART ROSALINDA EXAMINATION: US [...] MÓNICA JIMENEZ Date: 2022-08-28 13:20 Normal [facility] FK506 (TACROLIMUS) WHOLE BLO ODon 08-17-2022 Tacrolimus (FK506), Blood 9.9 ng/mL Normal 2.0-20.0 [facility] Comment on above: Result Comment: Trou gh (immediately following transplant) 15.0 . Trough (steady state, 2 weeks or more after transplant): 3.0 - 8.0 . Performed by LC-MS/MS technology. Performed By: #### F K506T #### [facility] [address] [place] [address] Dr. Dwight Waters BK VIRUS PCR QUANTon 022 BKV DNA QUANT PCR PLASMA Negative Normal Negative [facility] Comment on above: Result Comment: No B K DNA detected. . The linear range of the assay is 22 - 100,000,000 IU/mL. Performed By: #### U RTPCR #### [facility] [address] [place] [address] Dr. Dwight Waters Log10 BKV DNA Plasma Normal [facility] Comment on above: Performed By: #### U RTPCR #### [facility] [address] [place] [address] Dr. Dwight Waters ALBUMINon 08-14-2022 Albumin [Mass/Vol] 4.2 g/dL Normal 3.4-5.0 [facility] Comment on above: Performed By: #### F [id number] #### [facility] [address] [place] [address] Dr. Dwight Waters ALKALINE PHOSPHAon 2 ALP [Catalytic activity/Vol] 92 U/L Normal 46-116 [facility] Comment on above: Performed By: #### C BC #### [facility] [address] [place] [address] Dr. Dwight Waters BILIRUBIN CONJUGATED (DIRECT )on 08-14-2022 BILI, CONJUGATED 0.3 mg/dL Critically high 0.0-0.2 [facility] Comment on above: Performed By: #### F [id number] #### [facility] [address] [place] [address] Dr. Dwight Waters BILIRUBIN TOTALon 08-14-2022 Bilirubin [Mass/Vol] 1.5 mg/dL Critically high 0.2-1.0 [facility] Comment on above: Performed By: #### F K506T #### [facility] [address] [place] [address] Dr. Dwight Waters BUNon 08-14-2022 Urea nitrogen [Mass/Vol] 11.0 mg/dL Normal 7.0-18.0 [facility] Comment on above: Performed By: #### C BC #### [facility] [address] [place] [address] Dr. Dwight Waters CALCIUMon 08-14-2022 Calcium [Mass/Vol] 9.4 mg/dL Normal 8.5-10.1 [facility] Comment on above: Performed By: #### F [id number] #### [facility] [address] [place] [address] Dr. Dwight Waters CBC AUTO DIFFon 08-14-2022 BASO # 0.0 103/ul Normal 0.0-0.1 [facility] Comment on above: Performed By: #### C MP #### [facility] [address] [place] [address] Dr. Dwight Waters Basophils/100 WBC (Bld) 0.5 % Normal 0.2-2.0 [facility] Comment on above: Performed By: #### C MP #### [facility] [address] [place] [address] Dr. Dwight Waters EO # 0.2 103/ul Normal 0.0-0.7 [facility] Comment on above: Performed By: #### C MP #### [facility] [address] [place] [address] Dr. Dwight Waters Eosinophils/100 WBC (Bld) 2.6 % Normal 0.9-7.0 [facility] Comment on above: Performed By: #### C MP #### [facility] [address] [place] [address] Dr. Dwight Waters Erythrocyte distribution width (RBC) [Ratio] 13.1 % Normal 11.0-15.0 [facility] Comment on above: Performed By: #### C MP #### [facility] [address] [place] [address] Dr. Dwight Waters Hematocrit (Bld) [Volume fraction] 47.0 % Normal 42.0-54.0 [facility] Comment on above: Performed By: #### C MP #### [facility] [address] [place] [address] Dr. Dwight Waters Hemoglobin (Bld) [Mass/Vol] 15.3 g/dL Normal 14.0-18.0 [facility] Comment on above: Performed By: #### C MP #### [facility] [address] [place] [address] Dr. Dwight Waters IG # 0.01 10e3/ul Normal 0.00-0.03 [facility] Comment on above: Performed By: #### C MP #### [facility] [address] [place] [address] Dr. Dwight Waters IG % 0.1 % Normal 0.0-0.5 [facility] Comment on above: Performed By: #### C MP #### [facility] [address] [place] [address] Dr. Dwight Waters LYMPH # 2.3 103/ul Normal 1.2-3.8 [facility] Comment on above: Performed By: #### C MP #### [facility] [address] [place] [address] Dr. Dwight Waters Lymphocytes/100 WBC (Bld) 29.8 % Normal 20.5-60.0 [facility] Comment on above: Performed By: #### C MP #### [facility] [address] [place] [address] Dr. Dwight Waters MANUAL DIFF REQ NO Normal [facility] Comment on above: Performed By: #### C MP #### [facility] [address] [place] [address] Dr. Dwight Waters MCH (RBC) [Entitic mass] 28.2 pg Normal 25.9-34.0 [facility] Comment on above: Performed By: #### C MP #### [facility] [address] [place] [address] Dr. Dwight Waters MCHC (RBC) [Mass/Vol] 32.6 g/dL Normal 29.9-35.2 [facility] Comment on above: Performed By: #### C MP #### [facility] [address] [place] [address] Dr. Dwight Waters MCV (RBC) [Entitic vol] 86.7 fL Normal 80.0-94.0 [facility] Comment on above: Performed By: #### C MP #### [facility] [address] [place] [address] Dr. Dwight Waters MONO # 0.7 103/ul Normal 0.3-0.8 [facility] Comment on above: Performed By: #### C MP #### [facility] [address] [place] [address] Dr. Dwight Waters Monocytes/100 WBC (Bld) 8.5 % Normal 1.7-12.0 [facility] Comment on above: Performed By: #### C MP #### [facility] [address] [place] [address] Dr. Dwight Waters NEUT # 4.5 103/ul Normal 1.4-6.5 [facility] Comment on above: Performed By: #### C MP #### [facility] [address] [place] [address] Dr. Dwight Waters Neutrophils/100 WBC (Bld) 58.5 % Normal 43.0-75.0 [facility] Comment on above: Performed By: #### C MP #### [facility] [address] [place] [address] Dr. Dwight Waters Platelet mean volume (Bld) [Entitic vol] 9.7 fL Normal 9.5-13.5 [facility] Comment on above: Performed By: #### C MP #### [facility] [address] [place] [address] Dr. Dwight Waters PLT 266 103/ul Normal 150-450 [facility] Comment on above: Performed By: #### C MP #### [facility] [address] [place] [address] Dr. Dwight Waters RBC 5.42 106/ul Normal 4.70-6.10 [facility] Comment on above: Performed By: #### C MP #### [facility] [address] [place] [address] Dr. Dwight Waters WBC 7.6 103/ul Normal 4.0-11.0 [facility] Comment on above: Performed By: #### C MP #### [facility] [address] [place] [address] Dr. Dwight Waters CHLORIDEon 08-14-2022 Chloride [Moles/Vol] 104 mmol/L Normal 98-107 [facility] Comment on above: Performed By: #### C BC #### [facility] [address] [place] [address] Dr. Dwight Waters CO2on 08-14-2022 CO2 [Moles/Vol] 27.9 mmol/L Normal 21.0-32.0 [facility] Comment on above: Performed By: #### C BC #### [facility] [address] [place] [address] Dr. Dwight Waters CREATININEon 08-14-2022 Creatinine [Mass/Vol] 1.08 mg/dL Normal 0.70-1.30 [facility] Comment on above: Performed By: #### C BC #### [facility] [address] [place] [address] Dr. Dwight Waters EGFR-AF CUBAN >60 Normal >=60 [facility] Comment on above: Performed By: #### C BC #### [facility] [address] [place] [address] Dr. Dwight Waters EGFR-NON AF CUBAN >60 Normal >=60 [facility] Comment on above: Performed By: #### C BC #### [facility] [address] [place] [address] Dr. Dwight Waters GGTon 08-14-2022 Gamma glutamyl transferase [Catalytic activity/Vol] 24 U/L Normal 15-85 [facility] Comment on above: Performed By: #### F [id number] #### [facility] [address] [place] [address] Dr. Dwight Waters GLUCOSE BLOODon 08-14-2022 Glucose [Mass/Vol] 111 mg/dL Critically high 74-106 [facility] Comment on above: Performed By: #### C BC #### [facility] [address] [place] [address] Dr. Dwight Waters MAGNESIUMon 08-14-2022 Magnesium [Mass/Vol] 1.4 mg/dL Critically low 1.8-2.4 [facility] Comment on above: Performed By: #### C BC #### [facility] [address] [place] [address] Dr. Dwight Waters NAon 08-14-2022 Sodium [Moles/Vol] 140 mmol/L Normal 136-145 [facility] Comment on above: Performed By: #### F [id number] #### [facility] [address] [place] [address] Dr. Dwight Waters PHOSPHORUSon 08-14-2022 Phosphate [Mass/Vol] 3.1 mg/dL Normal 2.6-4.7 [facility] Comment on above: Performed By: #### C BC #### [facility] [address] [place] [address] Dr. Dwight Waters POTASSIUMon 08-14-2022 Potassium [Moles/Vol] 3.5 mmol/L Normal 3.5-5.1 [facility] Comment on above: Performed By: #### C BC #### [facility] [address] [place] [address] Dr. Dwight Waters SGOTon 08-14-2022 AST [Catalytic activity/Vol] 17 U/L Normal 15-37 [facility] Comment on above: Performed By: #### F [id number] #### [facility] [address] [place] [address] Dr. Dwight Waters SGPTon 08-14-2022 ALT [Catalytic activity/Vol] 22 U/L Normal 16-63 [facility] Comment on above: Performed By: #### F [id number] #### [facility] [address] [place] [address] Dr. Dwight Waters URINE T PROTEIN CREAT RATIOo n 08-14-2022 Protein (U) [Mass/Vol] 10.7 mg/dL Normal <=12.0 [facility] Comment on above: Performed By: #### F [id number] #### [facility] [address] [place] [address] Dr. Dwight Waters UR PROT CREAT RAT 0.10 Normal [facility] Comment on above: Performed By: #### F [id number] #### [facility] [address] [place] [address] Dr. Dwight Waters URINE CREAT 104.28 mg/dL Normal 20.00-300.00 [facility] Comment on above: Performed By: #### F [id number] #### [facility] [address] [place] [address] Dr. Dwight Waters NEPHROSTOMY TUBE REMOVALon 0 [...] Assisting physician present for entire procedure: yes [facility] Radiology Study observation (narrative) [facility] FK506 (TACROLIMUS) WHOLE BLO ODon 07-06-2022 Tacrolimus (FK506), Blood 9.5 ng/mL Normal 2.0-20.0 [facility] Comment on above: Result Comment: Trou gh (immediately following transplant) 15.0 . Trough (steady state, 2 weeks or more after transplant): 3.0 - 8.0 . Performed by LC-MS/MS technology. Performed By: #### C MP #### [facility] [address] [place] [address] Dr. Dwight Waters ALBUMINon 07-03-2022 Albumin [Mass/Vol] 3.7 g/dL Normal 3.4-5.0 [facility] Comment on above: Performed By: #### U RTPCR #### [facility] [address] [place] [address] Dr. Dwight Waters ALKALINE PHOSPHAon ALP [Catalytic activity/Vol] 76 U/L Normal 46-116 [facility] Comment on above: Performed By: #### U RTPCR #### [facility] [address] [place] [address] Dr. Dwight Waters BILIRUBIN CONJUGATED (DIRECT )on 07-03-2022 BILI, CONJUGATED 0.3 mg/dL Critically high 0.0-0.2 [facility] Comment on above: Performed By: #### C BC #### [facility] [address] [place] [address] Dr. Dwight Waters BILIRUBIN TOTALon 07-03-2022 Bilirubin [Mass/Vol] 1.4 mg/dL Critically high 0.2-1.0 [facility] Comment on above: Performed By: #### C BC #### [facility] [address] [place] [address] Dr. Dwight Waters BUNon 07-03-2022 Urea nitrogen [Mass/Vol] 15.0 mg/dL Normal 7.0-18.0 [facility] Comment on above: Performed By: #### C BC #### [facility] [address] [place] [address] Dr. Dwight Waters CALCIUMon 07-03-2022 Calcium [Mass/Vol] 9.4 mg/dL Normal 8.5-10.1 [facility] Comment on above: Performed By: #### U RTPCR #### [facility] [address] [place] [address] Dr. Dwight Waters CBC AUTO DIFFon 07-03-2022 BASO # 0.0 103/ul Normal 0.0-0.1 [facility] Comment on above: Performed By: #### U RTPCR #### [facility] [address] [place] [address] Dr. Dwight Waters Basophils/100 WBC (Bld) 0.6 % Normal 0.2-2.0 [facility] Comment on above: Performed By: #### U RTPCR #### [facility] [address] [place] [address] Dr. Dwight Waters EO # 0.2 103/ul Normal 0.0-0.7 [facility] Comment on above: Performed By: #### U RTPCR #### [facility] [address] [place] [address] Dr. Dwight Waters Eosinophils/100 WBC (Bld) 3.5 % Normal 0.9-7.0 [facility] Comment on above: Performed By: #### U RTPCR #### [facility] [address] [place] [address] Dr. Dwight Waters Erythrocyte distribution width (RBC) [Ratio] 12.9 % Normal 11.0-15.0 [facility] Comment on above: Performed By: #### U RTPCR #### [facility] [address] [place] [address] Dr. Dwight Waters Hematocrit (Bld) [Volume fraction] 44.2 % Normal 42.0-54.0 [facility] Comment on above: Performed By: #### U RTPCR #### [facility] [address] [place] [address] Dr. Dwight Waters Hemoglobin (Bld) [Mass/Vol] 14.6 g/dL Normal 14.0-18.0 [facility] Comment on above: Performed By: #### U RTPCR #### [facility] [address] [place] [address] Dr. Diwght Waters IG # 0.02 10e3/ul Normal 0.00-0.03 [facility] Comment on above: Performed By: #### U RTPCR #### [facility] [address] [place] [address] Dr. Dwight Waters IG % 0.3 % Normal 0.0-0.5 [facility] Comment on above: Performed By: #### U RTPCR #### [facility] [address] [place] [address] Dr. Dwight Waters LYMPH # 2.0 103/ul Normal 1.2-3.8 [facility] Comment on above: Performed By: #### U RTPCR #### [facility] [address] [place] [address] Dr. Dwight Waters Lymphocytes/100 WBC (Bld) 28.4 % Normal 20.5-60.0 [facility] Comment on above: Performed By: #### U RTPCR #### [facility] [address] [place] [address] Dr. Dwight Waters MANUAL DIFF REQ NO Normal [facility] Comment on above: Performed By: #### U RTPCR #### [facility] [facility] [address] [place] [address] Dr. Dwight Waters MCH (RBC) [Entitic mass] 28.6 pg Normal 25.9-34.0 [facility] Comment on above: Performed By: #### U RTPCR #### [facility] [address] [address] [address] Dwight Waters MCHC (RBC) [Mass/Vol] 33.0 g/dL Normal 29.9-35.2 [facility] Comment on above: Performed By: #### U RTPCR #### [facility] [address] [address] [address] Dwight Waters MCV (RBC) [Entitic vol] 86.7 fL Normal 80.0-94.0 [facility] Comment on above: Performed By: #### U RTPCR #### [facility] [address] [place] [address] Dr. Dwight Waters MONO # 0.6 103/ul Normal 0.3-0.8 [facility] Comment on above: Performed By: #### U RTPCR #### [facility] [address] [place] [address] Dr. Dwight Waters Monocytes/100 WBC (Bld) 9.1 % Normal 1.7-12.0 [facility] Comment on above: Performed By: #### U RTPCR #### [facility] [address] [place] [address] Dr. Dwight Waters NEUT # 4.0 103/ul Normal 1.4-6.5 [facility] Comment on above: Performed By: #### U RTPCR #### [facility] [address] [place] [address] Dr. Dwight Waters Neutrophils/100 WBC (Bld) 58.1 % Normal 43.0-75.0 [facility] Comment on above: Performed By: #### U RTPCR #### [facility] [address] [place] [address] Dr. Dwight Waters Platelet mean volume (Bld) [Entitic vol] 9.5 fL Normal 9.5-13.5 [facility] Comment on above: Performed By: #### U RTPCR #### [facility] [address] [place] [address] Dr. Dwight Waters PLT 292 103/ul Normal 150-450 [facility] Comment on above: Performed By: #### U RTPCR #### [facility] [address] [place] [address] Dr. Dwight Waters RBC 5.10 106/ul Normal 4.70-6.10 [facility] Comment on above: Performed By: #### U RTPCR #### [facility] [address] [place] [address] Dr. Dwight Waters WBC 6.9 103/ul Normal 4.0-11.0 [facility] Comment on above: Performed By: #### U RTPCR #### [facility] [address] [place] [address] Dr. Dwight Waters CHLORIDEon 07-03-2022 Chloride [Moles/Vol] 108 mmol/L Critically high 98-107 [facility] Comment on above: Performed By: #### C BC #### [facility] [address] [place] [address] Dr. Dwight Waters CO2on 07-03-2022 CO2 [Moles/Vol] 25.2 mmol/L Normal 21.0-32.0 [facility] Comment on above: Performed By: #### C BC #### [facility] [address] [place] [address] Dr. Dwight Waters CREATININEon 07-03-2022 Creatinine [Mass/Vol] 1.03 mg/dL Normal 0.70-1.30 [facility] Comment on above: Performed By: #### U RTPCR #### [facility] [address] [place] [address] Dr. Dwight Waters EGFR-AF CUBAN >60 Normal >=60 [facility] Comment on above: Performed By: #### U RTPCR #### [facility] [address] [place] [address] Dr. Dwight Waters EGFR-NON AF CUBAN >60 Normal >=60 [facility] Comment on above: Performed By: #### U RTPCR #### [facility] [address] [place] [address] Dr. Dwight Waters GGTon 07-03-2022 Gamma glutamyl transferase [Catalytic activity/Vol] 31 U/L Normal 15-85 [facility] Comment on above: Performed By: #### U RTPCR #### [facility] [address] [place] [address] Dr. Dwight Waters GLUCOSE BLOODon 07-03-2022 Glucose [Mass/Vol] 119 mg/dL Critically high 74-106 [facility] Comment on above: Performed By: #### U RTPCR #### [facility] [address] [place] [address] Dr. Dwight Waters MAGNESIUMon 07-03-2022 Magnesium [Mass/Vol] 1.4 mg/dL Critically low 1.8-2.4 [facility] Comment on above: Performed By: #### C BC #### [facility] [address] [place] [address] Dr. Dwight Waters NAon 07-03-2022 Sodium [Moles/Vol] 142 mmol/L Normal 136-145 [facility] Comment on above: Performed By: #### C MP #### [facility] [address] [place] [address] Dr. Dwight Waters PHOSPHORUSon 07-03-2022 Phosphate [Mass/Vol] 3.4 mg/dL Normal 2.6-4.7 [facility] Comment on above: Performed By: #### C BC #### [facility] [address] [place] [address] Dr. Dwight Waters POTASSIUMon 07-03-2022 Potassium [Moles/Vol] 4.1 mmol/L Normal 3.5-5.1 [facility] Comment on above: Performed By: #### C BC #### [facility] [address] [place] [address] Dr. Dwight Waters SGOTon 07-03-2022 AST [Catalytic activity/Vol] 14 U/L Critically low 15-37 [facility] Comment on above: Performed By: #### C BC #### [facility] [address] [place] [address] Dr. Dwight Waters SGPTon 07-03-2022 ALT [Catalytic activity/Vol] 25 U/L Normal 16-63 [facility] Comment on above: Performed By: #### C #### [facility] [address] [address] [address] Dwight Waters US KIDNEYSon 07-03-2022 US KIDNEYS Ultrasound kidneys, bilateral HISTORY: Transplant of kidney , pain in the right lower quadrant COMPARISON: None. TECHNIQUE: Transabdominal ultrasound imaging of both kidneys was performed. FINDINGS: [place] kidneys are diffusely echogenic and atrophic with cortical thinning. The right kidney measures 8.3 x 3.5 x 4.07 m and the left measures 9.9 x 3.8 x 3.6 cm. No hydronephrosis of the [place] kidneys. There is a renal transplant in [...] stone involving the renal transplant. 2. Atrophic [place] kidneys. 3. Normal bladder. Electronically authenticated by: ARCELIA PIZARRO Date: 2022-07-03 17:22 Normal [facility] CT Abdomen and Pelvis WO con traston 06-27-2022 IMPRESSION: 1. Both [place] kidneys are atrophic with improvement in right-sided [...] Adrenals: Adrenal glands are unremarkable. Kidneys: Both [place] kidneys are atrophic. Interval improvement in right [place] kidney hydronephrosis since May 15, 2022. Status [...] Adrenals: Adrenal glands are unremarkable. Kidneys: Both [place] kidneys are atrophic. Interval improvement in right [place] kidney hydronephrosis since May 15, 2022. Status [...] aggressive osseous lesions. IMPRESSION IMPRESSION: 1. Both [place] kidneys are atrophic with improvement in right-sided hydronephrosis since May 15, 2022. 2. 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 No hydronephrosis. No discrete perinephric collection. 3. Partially imaged postsurgical changes related to prior liver transplant. 4. The bladder is decompressed, limiting evaluation. [facility] Radiology Study observation (narrative) [facility] CT Abdomen and Pelvis WO con trastOrdered By: Gera Lu on 06-27-2022 [facility] Work Phone: CBC AUTO DIFFon 06-18-2022 BASO # 0.0 103/ul Normal 0.0-0.1 [facility] Comment on above: Performed By: #### U RTPCR #### [facility] [address] [place] [address] Dr. Dwight Waters Basophils/100 WBC (Bld) 0.5 % Normal 0.2-2.0 [facility] Comment on above: Performed By: #### U RTPCR #### [facility] [address] [place] [address] Dr. Dwight Waters EO # 0.2 103/ul Normal 0.0-0.7 [facility] Comment on above: Performed By: #### U RTPCR #### [facility] [address] [place] [address] Dr. Dwight Waters Eosinophils/100 WBC (Bld) 2.3 % Normal 0.9-7.0 [facility] Comment on above: Performed By: #### U RTPCR #### [facility] [address] [place] [address] Dr. Dwight Waters Erythrocyte distribution width (RBC) [Ratio] 12.9 % Normal 11.0-15.0 [facility] Comment on above: Performed By: #### U RTPCR #### [facility] [address] [place] [address] Dr. Dwight Waters Hematocrit (Bld) [Volume fraction] 41.2 % Critically low 42.0-54.0 [facility] Comment on above: Performed By: #### U RTPCR #### [facility] [address] [place] [address] Dr. Dwight Waters Hemoglobin (Bld) [Mass/Vol] 13.3 g/dL Critically low 14.0-18.0 [facility] Comment on above: Performed By: #### U RTPCR #### [facility] [address] [place] [address] Dr. Dwight Waters IG # 0.04 10e3/ul Critically high 0.00-0.03 [facility] Comment on above: Performed By: #### U RTPCR #### [facility] [address] [place] [address] Dr. Dwight Waters IG % 0.5 % Normal 0.0-0.5 [facility] Comment on above: Performed By: #### U RTPCR #### [facility] [address] [place] [address] Dr. Dwight Waters LYMPH # 2.0 103/ul Normal 1.2-3.8 [facility] Comment on above: Performed By: #### U RTPCR #### [facility] [address] [place] [address] Dr. Dwight Waters Lymphocytes/100 WBC (Bld) 22.9 % Normal 20.5-60.0 [facility] Comment on above: Performed By: #### U RTPCR #### [facility] [address] [place] [address] Dr. Dwight Waters MANUAL DIFF REQ NO Normal [facility] Comment on above: Performed By: #### U RTPCR #### [facility] [address] [place] [address] Dr. Dwight Waters MCH (RBC) [Entitic mass] 28.7 pg Normal 25.9-34.0 [facility] Comment on above: Performed By: #### U RTPCR #### [facility] [address] [place] [address] Dr. Dwight Waters MCHC (RBC) [Mass/Vol] 32.3 g/dL Normal 29.9-35.2 [facility] Comment on above: Performed By: #### U RTPCR #### [facility] [address] [place] [address] Dr. Dwight Waters MCV (RBC) [Entitic vol] 88.8 fL Normal 80.0-94.0 [facility] Comment on above: Performed By: #### U RTPCR #### [facility] [address] [place] [address] Dr. Dwight Waters MONO # 0.8 103/ul Normal 0.3-0.8 [facility] Comment on above: Performed By: #### U RTPCR #### [facility] [address] [place] [address] Dr. Dwight Waters Monocytes/100 WBC (Bld) 9.7 % Normal 1.7-12.0 [facility] Comment on above: Performed By: #### U RTPCR #### [facility] [address] [place] [address] Dr. Dwight Waters NEUT # 5.6 103/ul Normal 1.4-6.5 [facility] Comment on above: Performed By: #### U RTPCR #### [facility] [address] [place] [address] Dr. Dwight Waters Neutrophils/100 WBC (Bld) 64.1 % Normal 43.0-75.0 [facility] Comment on above: Performed By: #### U RTPCR #### [facility] [address] [place] [address] Dr. Dwight Waters Platelet mean volume (Bld) [Entitic vol] 10.0 fL Normal 9.5-13.5 [facility] Comment on above: Performed By: #### U RTPCR #### [facility] [address] [place] [address] Dr. Dwight Waters PLT 270 103/ul Normal 150-450 [facility] Comment on above: Performed By: #### U RTPCR #### [facility] [address] [place] [address] Dr. Dwight Waters RBC 4.64 106/ul Critically low 4.70-6.10 [facility] Comment on above: Performed By: #### U RTPCR #### [facility] [address] [place] [address] Dr. Dwight Waters WBC 8.7 103/ul Normal 4.0-11.0 [facility] Comment on above: Performed By: #### U RTPCR #### [facility] [address] [place] [address] Dr. Dwight Waters CULTURE URINEon 06-18-2022 CULTURE URINE Culture Observations : NO GROWTH. Normal [facility] Comment on above: Performed By: #### U RTPCR #### [facility] [address] [place] [address] Dr. Dwight Waters [facility] SARS-CoV-2 (COVID-19) RNA ESTELITA+probe Ql (Unsp spec) Not detected Normal NOT DETECTED [facility] Comment on above: Result Comment: [...] for this test is supported by the [employer] of Health and Human Service's declaration that [...] used). Performed By: #### C BC #### [facility] [address] [place] [address] Dr. Dwight Waters ER URINE PROFILEon 2 Bilirubin Ql (U) Negative Normal NEGATIVE [facility] Comment on above: Performed By: #### U RTPCR #### [facility] [address] [place] [address] Dr. Dwight Waters Clarity (U) CLEAR Normal CLEAR [facility] Comment on above: Performed By: #### U RTPCR #### [facility] [address] [place] [address] Dr. Dwight Waters Color (U) YELLOW Normal YELLOW [facility] Comment on above: Performed By: #### U RTPCR #### [facility] [address] [place] [address] Dr. Dwight SHARMA A micrscopic examination will be performed if indicated. Normal [facility] Comment on above: Performed By: #### U RTPCR #### [facility] [address] [place] [address] Dr. Dwight Waters Glucose Ql (U) Negative Normal NEGATIVE [facility] Comment on above: Performed By: #### U RTPCR #### [facility] [address] [place] [address] Dr. Dwight Waters Hemoglobin Ql (U) LARGE Abnormal NEGATIVE [facility] Comment on above: Performed By: #### U RTPCR #### [facility] [address] [place] [address] Dr. Dwight Waters Ketones Ql (U) Negative Normal NEGATIVE [facility] Comment on above: Performed By: #### U RTPCR #### [facility] [address] [place] [address] Dr. Dwight Waters LEUKOCYTES TRACE Abnormal NEGATIVE [facility] Comment on above: Performed By: #### U RTPCR #### [facility] [address] [place] [address] Dr. Dwight Waters Nitrite Ql (U) Negative Normal NEGATIVE [facility] Comment on above: Performed By: #### U RTPCR #### [facility] [address] [place] [address] Dr. Dwight Waters pH (U) 6.0 [pH] Normal 5-9 [facility] Comment on above: Performed By: #### U RTPCR #### [facility] [address] [place] [address] Dr. Dwight Waters Protein (U) [Mass/Vol] 30 mg/dL Abnormal NEGATIVE/ TRACE [facility] Comment on above: Performed By: #### U RTPCR #### [facility] [address] [place] [address] Dr. Dwight Waters SPEC GRAVITY >=1.030 Abnormal 1.005-<=1.025 [facility] Comment on above: Performed By: #### U RTPCR #### [facility] [address] [place] [address] Dr. Dwight Waters UR MICRO IND INDICATED Normal [facility] Comment on above: Performed By: #### U RTPCR #### [facility] [address] [place] [address] Dr. Dwight Waters Urobilinogen Qn (U) 0.2 {Alyssa'U}/dL Normal 0.2 - 1. 0 [facility] Comment on above: Performed By: #### U RTPCR #### [facility] [address] [place] [address] Dr. Dwight Waters PROF 14(COMP METB)on 022 Albumin [Mass/Vol] 3.7 g/dL Normal 3.4-5.0 [facility] Comment on above: Performed By: #### C MP #### [facility] [address] [place] [address] Dr. Dwight Waters Albumin/Globulin [Mass ratio] 0.9 {ratio} Normal [facility] Comment on above: Performed By: #### C MP #### [facility] [address] [place] [address] Dr. Dwight Waters ALP [Catalytic activity/Vol] 80 U/L Normal 46-116 [facility] Comment on above: Performed By: #### C MP #### [facility] [address] [place] [address] Dr. Dwight Waters ALT [Catalytic activity/Vol] 24 U/L Normal 16-63 [facility] Comment on above: Performed By: #### C MP #### [facility] [address] [place] [address] Dr. Dwight Waters Anion gap [Moles/Vol] 12.9 mmol/L Normal [facility] Comment on above: Performed By: #### C MP #### [facility] [address] [place] [address] Dr. Dwight Waters AST [Catalytic activity/Vol] 17 U/L Normal 15-37 [facility] Comment on above: Performed By: #### C MP #### [facility] [address] [place] [address] Dr. Dwight Waters Bilirubin [Mass/Vol] 0.8 mg/dL Normal 0.2-1.0 [facility] Comment on above: Performed By: #### C MP #### [facility] [address] [place] [address] Dr. Dwight Waters Calcium [Mass/Vol] 9.4 mg/dL Normal 8.5-10.1 [facility] Comment on above: Performed By: #### C MP #### [facility] [address] [place] [address] Dr. Dwight Waters Chloride [Moles/Vol] 106 mmol/L Normal 98-107 [facility] Comment on above: Performed By: #### C MP #### [facility] [address] [place] [address] Dr. Dwight Waters CO2 [Moles/Vol] 25.3 mmol/L Normal 21.0-32.0 [facility] Comment on above: Performed By: #### C MP #### [facility] [address] [address] [address] Dwight Waters Creatinine [Mass/Vol] 1.29 mg/dL Normal 0.70-1.30 [facility] Comment on above: Performed By: #### C MP #### [facility] [address] [address] [address] Dwight Waters EGFR-AF CUBAN >60 Normal >=60 [facility] Comment on above: Performed By: #### C MP #### [facility] [address] [address] [address] Dwight Waters EGFR-NON AF CUBAN 59 mL/min/1.73m2 Critically low >=60 [facility] Comment on above: Performed By: #### C MP #### [facility] [address] [address] [address] Dwight Waters Globulin (S) [Mass/Vol] 4.2 g/dL Normal [facility] Comment on above: Performed By: #### C MP #### [facility] [address] [address] [address] Dwight Waters Glucose [Mass/Vol] 106 mg/dL Normal 74-106 [facility] Comment on above: Performed By: #### C MP #### [facility] [address] [address] [address] Dwight Waters Potassium [Moles/Vol] 4.2 mmol/L Normal 3.5-5.1 [facility] Comment on above: Performed By: #### C MP #### [facility] [address] [address] [address] Dwight Waters Protein [Mass/Vol] 7.9 g/dL Normal 6.4-8.2 [facility] Comment on above: Performed By: #### C MP #### [facility] [address] [address] [address] Dwight Waters Sodium [Moles/Vol] 140 mmol/L Normal 136-145 [facility] Comment on above: Performed By: #### C MP #### [facility] [address] [place] [address] Dr. Dwight Waters Urea nitrogen [Mass/Vol] 22.0 mg/dL Critically high 7.0-18.0 [facility] Comment on above: Performed By: #### C MP #### [facility] [address] [place] [address] Dr. Dwight Waters Urea nitrogen/Creatinine [Mass ratio] 17.1 mg/mg Normal [facility] Comment on above: Performed By: #### C MP #### [facility] [address] [place] [address] Dr. Dwight Waters URINE MICROSCOPIC ONLYon BACTERIA TRACE Abnormal NONE SEEN [facility] Comment on above: Performed By: #### U RTPCR #### [facility] [address] [place] [address] Dr. Dwight Waters Bacteria identified Cx Nom (U) INDICATED Normal [facility] Comment on above: Performed By: #### U RTPCR #### [facility] [address] [place] [address] Dr. Dwight Waters CAST NONE SEEN Normal NONE SEEN [facility] Comment on above: Performed By: #### U RTPCR #### [facility] [address] [place] [address] Dr. Dwight Waters Crystals LM Nom (Urine sed) NONE SEEN Normal NONE SEEN [facility] Comment on above: Performed By: #### U RTPCR #### [facility] [address] [place] [address] Dr. Dwight Waters Epithelial cells LM Ql (Urine sed) NONE SEEN Normal NONE SEEN /RARE [facility] Comment on above: Performed By: #### U RTPCR #### [facility] [address] [place] [address] Dr. Dwight Waters MUCOUS NONE SEEN Normal NONE SEEN [facility] Comment on above: Performed By: #### U RTPCR #### [facility] [address] [place] [address] Dr. Dwight Waters RBC 5-10 Abnormal 0-2 [facility] Comment on above: Performed By: #### U RTPCR #### [facility] [address] [place], [place] [address] Dr. Dwight Waters WBC 10-20 Abnormal NONE SEEN [facility] Comment on above: Performed By: #### U RTPCR #### [facility] [address] [place], [place] [address] Dr. Dwight Waters ALLOSCREEN RECIPIENT (POST T X PRA)on 06-13-2022 AB SPECIFICITY CLASS COMMENT Antibody Specificity testing performed by [employer]. cPRA calculation based on identification of HLA antibody specificities at MFI >2000 and/or presence of CREG antibodies. [facility] Comment on above: Some of the reagents used for testing in the Clinical Histocompatibility Laboratory have yet to be approved by the FDA. Our certification by CLIA to perform high complexity tests allows us to use these reagents in the context of a stringent QC program, and obviates the need for FDA approval.Testing performed by the [facility] Clinical Histocompatibility Laboratory. [facility] number: [id number]. CLIA number: [id number], Director: Carlito Merchant, PhD, D([facility]). ANTIBODY SPECIFICITY INTERPRETATION Detected [facility] CLASS I SPECIFICITIES Not detected [facility] CLASS II SPECIFICITIES Not detected [facility] HLA Ab (S) 0 % 0 [facility] EXTRA MICROon 06-13-2022 [facility] URINE CULTUREOrdered By: Jah Upton on 06-13-2022 Bacteria identified Cx Nom (Unsp spec) Growth [facility] Bacteria identified Cx Nom (Unsp spec) 10,000-50,000 CFU/mL Mixed skin shimon [facility] Comment on above: Multiple bacterial m orphotypes present. Suggest appropriate recollection if clinically indicated. [facility] CBC,PLATELETSon 06-12-2022 Erythrocyte distribution width (RBC) [Ratio] 13.0 % 10.9 - 14.3 % [facility] Hematocrit (Bld) [Volume fraction] 43.2 % 39.6 - 48.8 % [facility] Hemoglobin (Bld) [Mass/Vol] 13.9 g/dL 13.4 - 16.8 g/dL [facility] Interpretation and review of laboratory results Normal [facility] MCH (RBC) [Entitic mass] 28.7 pg 26.1 - 33.3 pg [facility] MCHC (RBC) [Mass/Vol] 32.2 g/dL 31.9 - 36.5 g/dL [facility] MCV (RBC) [Entitic vol] 89.1 fL 79.0 - 94.5 fL [facility] Platelet mean volume (Bld) [Entitic vol] 10.5 fL 8.7 - 12.3 fL [facility] Platelets (Bld) [#/Vol] 269 10*3/uL 146 - 337 K/uL [facility] RBC (Bld) [#/Vol] 4.85 10*6/uL [facility] WBC (Bld) [#/Vol] 7.68 10*3/uL 3.73 - 10. 10 K/uL [facility] CHEM 7 (LYTES,BUN,CREA,GLUC) on 06-12-2022 Anion gap [Moles/Vol] 14 mmol/L 7 - 17 mmol/L [facility] Chloride [Moles/Vol] 106 mmol/L 98 - 10 8 mmol/L [facility] CO2 [Moles/Vol] 25 mmol/L 21 - 31 mmol/L [facility] Creatinine [Mass/Vol] 1.26 mg/dL 0.70 - 1.30 mg/dL [facility] GFR/1.73 sq M.predicted CKD-EPI (S/P/Bld) [Vol rate/Area] 69 >=60 mL/min/1.73m2 [facility] Comment on above: Reported eGFR is bas ed on the CKD-EPI 2020 equation using creatinine, age, and sex. Glucose [Mass/Vol] 83 mg/dL 70 - 99 mg/dL [facility] Osmolality Calc [Osmolality] 295 [facility] Potassium [Moles/Vol] 3.8 mmol/L 3.5 - 5.0 mmol/L [facility] Sodium [Moles/Vol] 141 mmol/L 135 - 145 mmol/L [facility] Urea nitrogen [Mass/Vol] 18 mg/dL 7 - 25 mg/dL [facility] Urea nitrogen/Creatinine [Mass ratio] 14 mg/mg [facility] GGTon 06-12-2022 Gamma glutamyl transferase [Catalytic activity/Vol] 20 U/L 8 - 64 U/L [facility] HEMOGLOBIN [id number] By: Link Roche on 06-12-2022 Average glucose Estimated from glycated hemoglobin (Bld) [Mass/Vol] 126 mg/dL [facility] HbA1c (Bld) [Mass fraction] 6.0 % High 4.7 - 5.6 % [facility] Interpretation and review of laboratory results Abnormal [facility] HEPATIC FUNCTION PANELon Albumin [Mass/Vol] 4.3 g/dL 3.5 - 5.0 g/dL [facility] ALP [Catalytic activity/Vol] 78 U/L 32 - 126 U/L [facility] ALT [Catalytic activity/Vol] 12 U/L 10 - 52 U/L [facility] AST [Catalytic activity/Vol] 16 U/L 10 - 39 U/L [facility] Bilirubin [Mass/Vol] 1.0 mg/dL <1.5 [facility] Bilirubin.direct [Mass/Vol] 0.2 mg/dL <0.3 [facility] Protein [Mass/Vol] 7.5 g/dL 6.4 - 8.3 g/dL [facility] No Panel Informationon 06-12 Interpretation and review of laboratory results Normal [facility] PTH INTACTOrdered By: Marli Lizarraga on 06-12-2022 Interpretation and review of laboratory results Abnormal [facility] Parathyrin.intact [Mass/Vol] 79.7 pg/mL High 14.0 - 72.0 pg/mL [facility] URINALYSIS REFLEX TO CULTURE PERFORMABLEon 06-12-2022 Appearance (U) Clear Clear [facility] Bacteria LM Ql (Urine sed) ABSENT ABSENT [facility] Color (U) Yellow Yellow [facility] Epithelial cells.squamous LM Ql (Urine sed) 1/hpf = 1+ 1/hpf = 1+, 2-5/hpf = 2+, 0/hpf = 0+, ABSENT [facility] Glucose Test strip (U) [Mass/Vol] Negative Negative [facility] Interpretation and review of laboratory results Abnormal [facility] Ketones (U) [Mass/Vol] Trace Abnormal Negative [facility] Leukocyte esterase Test strip Ql (U) Small Abnormal Negative [facility] Nitrite Ql (U) Negative Negative [facility] pH (U) 5.5 [pH] 5.0 - 7.0 [facility] Protein (U) [Mass/Vol] 30 mg/dL Abnormal Negative [facility] RBC (U) [#/Vol] Trace Abnormal Negative [facility] RBC LM.HPF (Urine sed) [#/Area] 0-2 0 - 2 /HPF [facility] Specific gravity (U) [Rel density] 1.026 [facility] Urobilinogen (U) [Mass/Vol] 0.2 E.U./dL 0.2 E.U/dL, 1.0 E.U/dL [facility] WBC LM.HPF (Urine sed) [#/Area] 10-20 Abnormal 0 - 5 /HPF [facility] URINE PROTEIN/CREA RATIO, RA NDOMon 06-12-2022 Creatinine (24H U) [Mass/Vol] 231.68 mg/dL [facility] Protein Unsp time (U) [Mass/Vol] 49 mg/dL [facility] Protein/Creatinine (U) [Mass ratio] 0.211 mg[facility] WHOLE BLO ODon 06-09-2022 Tacrolimus (FK506), Blood 9.8 ng/mL Normal 2.0-20.0 [facility] Comment on above: Result Comment: Trou gh (immediately following transplant) 15.0 . Trough (steady state, 2 weeks or more after transplant): 3.0 - 8.0 . Performed by LC-MS/MS technology. Performed By: #### U RTPCR #### [facility] [address] [place] [address] Dr. Dwight Waters ALBUMINon 06-06-2022 Albumin [Mass/Vol] 3.8 g/dL Normal 3.4-5.0 [facility] Comment on above: Performed By: #### C MP #### [facility] [address] [place] [address] Dr. Dwight Waters ALKALINE PHOSPHAon ALP [Catalytic activity/Vol] 82 U/L Normal 46-116 [facility] Comment on above: Performed By: #### C MP #### [facility] [address] [place] [address] Dr. Dwight Waters BILIRUBIN CONJUGATED (DIRECT )on 06-06-2022 BILI, CONJUGATED 0.2 mg/dL Normal 0.0-0.2 [facility] Comment on above: Performed By: #### C BC #### [facility] [address] [place] [address] Dr. Dwight Waters BILIRUBIN TOTALon 06-06-2022 Bilirubin [Mass/Vol] 1.0 mg/dL Normal 0.2-1.0 [facility] Comment on above: Performed By: #### C BC #### [facility] [address] [place] [address] Dr. Dwight Waters BUNon 06-06-2022 Urea nitrogen [Mass/Vol] 18.0 mg/dL Normal 7.0-18.0 [facility] Comment on above: Performed By: #### C BC #### [facility] [address] [place] [address] Dr. Dwight Waters CALCIUMon 06-06-2022 Calcium [Mass/Vol] 9.4 mg/dL Normal 8.5-10.1 [facility] Comment on above: Performed By: #### C MP #### [facility] [address] [place] [address] Dr. Dwight Waters CBC AUTO DIFFon 06-06-2022 BASO # 0.1 103/ul Normal 0.0-0.1 [facility] Comment on above: Performed By: #### U RTPCR #### [facility] [address] [place] [address] Dr. Dwight Waters Basophils/100 WBC (Bld) 0.8 % Normal 0.2-2.0 [facility] Comment on above: Performed By: #### U RTPCR #### [facility] [address] [place] [address] Dr. Dwight Waters EO # 0.3 103/ul Normal 0.0-0.7 [facility] Comment on above: Performed By: #### U RTPCR #### [facility] [address] [place] [address] Dr. Dwight Waters Eosinophils/100 WBC (Bld) 3.3 % Normal 0.9-7.0 [facility] Comment on above: Performed By: #### U RTPCR #### [facility] [address] [place] [address] Dr. Dwight Waters Erythrocyte distribution width (RBC) [Ratio] 12.4 % Normal 11.0-15.0 [facility] Comment on above: Performed By: #### U RTPCR #### [facility] [address] [place] [address] Dr. Dwight Waters Hematocrit (Bld) [Volume fraction] 45.1 % Normal 42.0-54.0 [facility] Comment on above: Performed By: #### U RTPCR #### [facility] [address] [place] [address] Dr. Dwight Waters Hemoglobin (Bld) [Mass/Vol] 14.4 g/dL Normal 14.0-18.0 [facility] Comment on above: Performed By: #### U RTPCR #### [facility] [address] [place] [address] Dr. Dwight Waters IG # 0.01 10e3/ul Normal 0.00-0.03 [facility] Comment on above: Performed By: #### U RTPCR #### [facility] [address] [place] [address] Dr. Dwight Waters IG % 0.1 % Normal 0.0-0.5 [facility] Comment on above: Performed By: #### U RTPCR #### [facility] [address] [place] [address] Dr. Dwight Waters LYMPH # 2.2 103/ul Normal 1.2-3.8 [facility] Comment on above: Performed By: #### U RTPCR #### [facility] [address] [place] [address] Dr. Dwight Waters Lymphocytes/100 WBC (Bld) 30.0 % Normal 20.5-60.0 [facility] Comment on above: Performed By: #### U RTPCR #### [facility] [address] [place] [address] Dr. Dwight Waters MANUAL DIFF REQ NO Normal [facility] Comment on above: Performed By: #### U RTPCR #### [facility] [address] [place] [address] Dr. Dwight Waters MCH (RBC) [Entitic mass] 28.2 pg Normal 25.9-34.0 [facility] Comment on above: Performed By: #### U RTPCR #### [facility] [address] [place] [address] Dr. Dwight Waters MCHC (RBC) [Mass/Vol] 31.9 g/dL Normal 29.9-35.2 [facility] Comment on above: Performed By: #### U RTPCR #### [facility] [address] [place] [address] Dr. Dwight Waters MCV (RBC) [Entitic vol] 88.3 fL Normal 80.0-94.0 [facility] Comment on above: Performed By: #### U RTPCR #### [facility] [address] [place] [address] Dr. Dwight Waters MONO # 0.6 103/ul Normal 0.3-0.8 [facility] Comment on above: Performed By: #### U RTPCR #### [facility] [address] [place] [address] Dr. Dwight Waters Monocytes/100 WBC (Bld) 8.2 % Normal 1.7-12.0 [facility] Comment on above: Performed By: #### U RTPCR #### [facility] [address] [place] [address] Dr. Dwight Waters NEUT # 4.3 103/ul Normal 1.4-6.5 [facility] Comment on above: Performed By: #### U RTPCR #### [facility] [address] [place] [address] Dr. Dwight Waters Neutrophils/100 WBC (Bld) 57.6 % Normal 43.0-75.0 [facility] Comment on above: Performed By: #### U RTPCR #### [facility] [address] [place] [address] Dr. Dwight Waters Platelet mean volume (Bld) [Entitic vol] 9.7 fL Normal 9.5-13.5 [facility] Comment on above: Performed By: #### U RTPCR #### [facility] [address] [place] [address] Dr. Dwight Waters PLT 297 103/ul Normal 150-450 [facility] Comment on above: Performed By: #### U RTPCR #### [facility] [address] [place] [address] Dr. Dwight Waters RBC 5.11 106/ul Normal 4.70-6.10 [facility] Comment on above: Performed By: #### U RTPCR #### [facility] [address] [place] [address] Dr. Dwight Waters WBC 7.5 103/ul Normal 4.0-11.0 [facility] Comment on above: Performed By: #### U RTPCR #### [facility] [address] [place] [address] Dr. Dwight Waters CHLORIDEon 06-06-2022 Chloride [Moles/Vol] 107 mmol/L Normal 98-107 [facility] Comment on above: Performed By: #### C BC #### [facility] [address] [address] [address] Dwight Waters CO2on 06-06-2022 CO2 [Moles/Vol] 27.4 mmol/L Normal 21.0-32.0 [facility] Comment on above: Performed By: #### C BC #### [facility] [address] [address] [address] Dwight Waters CREATININEon 06-06-2022 Creatinine [Mass/Vol] 1.20 mg/dL Normal 0.70-1.30 [facility] Comment on above: Performed By: #### C BC #### [facility] [address] [address] [address] Dwight Waters EGFR-AF CUBAN >60 Normal >=60 [facility] Comment on above: Performed By: #### C BC #### [facility] [address] [place] [address] Dr. Dwight Waters EGFR-NON AF CUBAN >60 Normal >=60 [facility] Comment on above: Performed By: #### C BC #### [facility] [address] [place] [address] Dr. Dwight Waters GGTon 06-06-2022 Gamma glutamyl transferase [Catalytic activity/Vol] 29 U/L Normal 15-85 [facility] Comment on above: Performed By: #### C BC #### [facility] [address] [place] [address] Dr. Dwight Waters GLUCOSE BLOODon 06-06-2022 Glucose [Mass/Vol] 112 mg/dL Critically high 74-106 [facility] Comment on above: Performed By: #### C BC #### [facility] [address] [place] [address] Dr. Dwight Waters MAGNESIUMon 06-06-2022 Magnesium [Mass/Vol] 1.3 mg/dL Critically low 1.8-2.4 [facility] Comment on above: Performed By: #### C MP #### [facility] [address] [place] [address] Dr. Dwight Waters NAon 06-06-2022 Sodium [Moles/Vol] 141 mmol/L Normal 136-145 [facility] Comment on above: Performed By: #### C MP #### [facility] [address] [place] [address] Dr. Dwight Waters PHOSPHORUSon 06-06-2022 Phosphate [Mass/Vol] 3.1 mg/dL Normal 2.6-4.7 [facility] Comment on above: Performed By: #### C MP #### [facility] [address] [place] [address] Dr. Dwight Waters POTASSIUMon 06-06-2022 Potassium [Moles/Vol] 4.3 mmol/L Normal 3.5-5.1 [facility] Comment on above: Performed By: #### C BC #### [facility] [address] [place] [address] Dr. Dwight Waters SGOTon 06-06-2022 AST [Catalytic activity/Vol] 16 U/L Normal 15-37 [facility] Comment on above: Performed By: #### C BC #### [facility] [address] [place] [address] Dr. Dwight Waters SGPTon 06-06-2022 ALT [Catalytic activity/Vol] 50 U/L Normal 16-63 [facility] Comment on above: Performed By: #### C BC #### [facility] [address] [place] [address] Dr. Dwight Waters Bacteria identified Cx Nom ( Bld)on 05-21-2022 Bacteria identified Cx Nom (Unsp spec) NO GROWTH DAY 5 OF 5 [facility] Results may be compromised due to volume of BACT\ALERT bottle exceeding 10mLs . The optimal blood volume is 8-10 mls per aerobic/anaerobic blood culture bottle. [facility] CALCIUMon 05-20-2022 Calcium [Mass/Vol] 9.1 mg/dL 8.6 - 10. 5 mg/dL [facility] CBC,PLATELETSon 05-20-2022 Erythrocyte distribution width (RBC) [Ratio] 12.5 % 10.9 - 14.3 % [facility] Hematocrit (Bld) [Volume fraction] 37.1 % Low 39.6 - 48.8 % [facility] Hemoglobin (Bld) [Mass/Vol] 12.3 g/dL Low 13.4 - 16.8 g/dL [facility] Interpretation and review of laboratory results Abnormal [facility] MCH (RBC) [Entitic mass] 28.9 pg 26.1 - 33.3 pg [facility] MCHC (RBC) [Mass/Vol] 33.2 g/dL 31.9 - 36.5 g/dL [facility] MCV (RBC) [Entitic vol] 87.3 fL 79.0 - 94.5 fL [facility] Platelet mean volume (Bld) [Entitic vol] 9.9 fL 8.7 - 12.3 fL [facility] Platelets (Bld) [#/Vol] 234 10*3/uL 146 - 337 K/uL [facility] RBC (Bld) [#/Vol] 4.25 10*6/uL Low [facility] WBC (Bld) [#/Vol] 6.31 10*3/uL 3.73 - 10. 10 K/uL [facility] CHEM 7 (LYTES,BUN,CREA,GLUC) on 05-20-2022 Anion gap [Moles/Vol] 15 mmol/L 7 - 17 mmol/L [facility] Chloride [Moles/Vol] 111 mmol/L High 98 - 10 8 mmol/L [facility] CO2 [Moles/Vol] 22 mmol/L 21 - 31 mmol/L [facility] Creatinine [Mass/Vol] 1.10 mg/dL 0.70 - 1.30 mg/dL [facility] GFR/1.73 sq M.predicted CKD-EPI (S/P/Bld) [Vol rate/Area] 81 >=60 mL/min/1.73m2 [facility] Comment on above: Reported eGFR is bas ed on the CKD-EPI 2020 equation using creatinine, age, and sex. Glucose [Mass/Vol] 92 mg/dL 70 - 99 mg/dL [facility] Interpretation and review of laboratory results Abnormal [facility] Osmolality Calc [Osmolality] 302 [facility] Potassium [Moles/Vol] 4.4 mmol/L 3.5 - 5.0 mmol/L [facility] Sodium [Moles/Vol] 144 mmol/L 135 - 145 mmol/L [facility] Urea nitrogen [Mass/Vol] 18 mg/dL 7 - 25 mg/dL [facility] Urea nitrogen/Creatinine [Mass ratio] 16 mg/mg [facility] MAGNESIUMon 05-20-2022 Interpretation and review of laboratory results Abnormal [facility] Magnesium [Mass/Vol] 1.5 mg/dL Low 1.6 - 2 .6 mg/dL [facility] No Panel Informationon 05-20 Interpretation and review of laboratory results Normal [facility] PHOSPHATE, INORGANICon 05-20 Phosphate [Mass/Vol] 3.3 mg/dL 2.2 - 4 .6 mg/dL [facility] RF Unspecified body region V iews [...] projections of kidneys, ureters, and bladder. FINDINGS: Didactic Instructor images: Didactic Instructor radiographs of the abdomen reveal a nonobstructive [...] Contrast refluxes up the ureter to [place] right kidney that is grossly normal appearing. [...] projections of kidneys, ureters, and bladder. FINDINGS: Didactic Instructor images: Didactic Instructor radiographs of the abdomen reveal a nonobstructive [...] Contrast refluxes up the ureter to [place] right kidney that is grossly normal appearing. [...] I have reviewed and approved this report. [facility] Radiology Study observation (narrative) [facility] RF Unspecified body region V iews during surgeryOrdered By: Lizz Campos on 05-20-2022 [facility] Work Phone: CALCIUMon 05-19-2022 Calcium [Mass/Vol] 9.2 mg/dL 8.6 - 10. 5 mg/dL [facility] Calcium [Mass/Vol] 8.6 mg/dL 8.6 - 10. 5 mg/dL [facility] CBC,PLATELETSon 05-19-2022 Erythrocyte distribution width (RBC) [Ratio] 12.4 % 10.9 - 14.3 % [facility] Hematocrit (Bld) [Volume fraction] 38.0 % Low 39.6 - 48.8 % [facility] Hemoglobin (Bld) [Mass/Vol] 12.0 g/dL Low 13.4 - 16.8 g/dL [facility] Interpretation and review of laboratory results Abnormal [facility] MCH (RBC) [Entitic mass] 28.6 pg 26.1 - 33.3 pg [facility] MCHC (RBC) [Mass/Vol] 31.6 g/dL Low 31.9 - 36.5 g/dL [facility] MCV (RBC) [Entitic vol] 90.5 fL 79.0 - 94.5 fL [facility] Platelet mean volume (Bld) [Entitic vol] 9.7 fL 8.7 - 12.3 fL [facility] Platelets (Bld) [#/Vol] 199 10*3/uL 146 - 337 K/uL [facility] RBC (Bld) [#/Vol] 4.20 10*6/uL [facility] [#/Vol] 6.81 10*3/uL 3.73 - 10. 10 K/uL [facility] CHEM 7 (LYTES,BUN,CREA,GLUC) on 05-19-2022 Anion gap [Moles/Vol] 13 mmol/L 7 - 17 mmol/L [facility] Chloride [Moles/Vol] 105 mmol/L 98 - 10 8 mmol/L [facility] CO2 [Moles/Vol] 30 mmol/L 21 - 31 mmol/L [facility] Creatinine [Mass/Vol] 1.39 mg/dL High 0.70 - 1.30 mg/dL [facility] GFR/1.73 sq M.predicted CKD-EPI (S/P/Bld) [Vol rate/Area] 61 >=60 mL/min/1.73m2 [facility] Comment on above: Reported eGFR is bas ed on the CKD-EPI 2020 equation using creatinine, age, and sex. Glucose [Mass/Vol] 121 mg/dL High 70 - 99 mg/dL [facility] Interpretation and review of laboratory results Abnormal [facility] Osmolality Calc [Osmolality] 303 [facility] Potassium [Moles/Vol] 3.8 mmol/L 3.5 - 5.0 mmol/L [facility] Sodium [Moles/Vol] 144 mmol/L 135 - 145 mmol/L [facility] Urea nitrogen [Mass/Vol] 18 mg/dL 7 - 25 mg/dL [facility] Urea nitrogen/Creatinine [Mass ratio] 13 mg/mg [facility] Anion gap [Moles/Vol] 15 mmol/L 7 - 17 mmol/L [facility] Chloride [Moles/Vol] 106 mmol/L 98 - 10 8 mmol/L [facility] CO2 [Moles/Vol] 24 mmol/L 21 - 31 mmol/L [facility] Creatinine [Mass/Vol] 1.46 mg/dL High 0.70 - 1.30 mg/dL [facility] GFR/1.73 sq M.predicted CKD-EPI (S/P/Bld) [Vol rate/Area] 58 Low >=60 mL/min/1.73m2 [facility] Comment on above: Reported eGFR is bas ed on the CKD-EPI 2020 equation using creatinine, age, and sex. Glucose [Mass/Vol] 103 mg/dL High 70 - 99 mg/dL [facility] Interpretation and review of laboratory results Abnormal [facility] Osmolality Calc [Osmolality] 298 [facility] Potassium [Moles/Vol] 3.9 mmol/L 3.5 - 5.0 mmol/L [facility] Sodium [Moles/Vol] 141 mmol/L 135 - 145 mmol/L [facility] Urea nitrogen [Mass/Vol] 21 mg/dL 7 - 25 mg/dL [facility] Urea nitrogen/Creatinine [Mass ratio] 14 mg/mg [facility] MAGNESIUMon 05-19-2022 Magnesium [Mass/Vol] 2.0 mg/dL 1.6 - 2 .6 mg/dL [facility] Magnesium [Mass/Vol] 1.7 mg/dL 1.6 - 2 .6 mg/dL [facility] No Panel Informationon 05-19 Interpretation and review of laboratory results Normal [facility] Interpretation and review of laboratory results Normal [facility] PHOSPHATE, INORGANICon 05-19 Phosphate [Mass/Vol] 3.0 mg/dL 2.2 - 4 .6 mg/dL [facility] Phosphate [Mass/Vol] 2.7 mg/dL 2.2 - 4 .6 mg/dL [facility] CALCIUMon 05-18-2022 Calcium [Mass/Vol] 9.1 mg/dL 8.6 - 10. 5 mg/dL [facility] CBC,PLATELETSon 05-18-2022 Erythrocyte distribution width (RBC) [Ratio] 12.5 % 10.9 - 14.3 % [facility] Hematocrit (Bld) [Volume fraction] 37.3 % Low 39.6 - 48.8 % [facility] Hemoglobin (Bld) [Mass/Vol] 11.9 g/dL Low 13.4 - 16.8 g/dL [facility] Interpretation and review of laboratory results Abnormal [facility] MCH (RBC) [Entitic mass] 28.9 pg 26.1 - 33.3 pg [facility] MCHC (RBC) [Mass/Vol] 31.9 g/dL 31.9 - 36.5 g/dL [facility] MCV (RBC) [Entitic vol] 90.5 fL 79.0 - 94.5 fL [facility] Platelet mean volume (Bld) [Entitic vol] 10.1 fL 8.7 - 12.3 fL [facility] Platelets (Bld) [#/Vol] 189 10*3/uL 146 - 337 K/uL [facility] RBC (Bld) [#/Vol] 4.12 10*6/uL Low [facility] WBC (Bld) [#/Vol] 10.19 10*3/uL High 3.73 - 10 .10 K/uL [facility] CHEM 7 (LYTES,BUN,CREA,GLUC) on 05-18-2022 Anion gap [Moles/Vol] 13 mmol/L 7 - 17 mmol/L [facility] Chloride [Moles/Vol] 102 mmol/L 98 - 10 8 mmol/L [facility] CO2 [Moles/Vol] 26 mmol/L 21 - 31 mmol/L [facility] Creatinine [Mass/Vol] 1.91 mg/dL High 0.70 - 1.30 mg/dL [facility] GFR/1.73 sq M.predicted CKD-EPI (S/P/Bld) [Vol rate/Area] 42 Low >=60 mL/min/1.73m2 [facility] Comment on above: Reported eGFR is bas ed on the CKD-EPI 2020 equation using creatinine, age, and sex. Glucose [Mass/Vol] 158 mg/dL High 70 - 99 mg/dL [facility] Osmolality Calc [Osmolality] 297 [facility] Potassium [Moles/Vol] 4.0 mmol/L 3.5 - 5.0 mmol/L [facility] Sodium [Moles/Vol] 137 mmol/L 135 - 145 mmol/L [facility] Urea nitrogen [Mass/Vol] 30 mg/dL High 7 - 25 mg/dL [facility] Urea nitrogen/Creatinine [Mass ratio] 16 mg/mg [facility] CHEM 7 (LYTES,BUN,CREA,GLUC) Ordered By: Tamiko Thapa on 05-18-2022 Anion gap [Moles/Vol] 13 mmol/L 7 - 17 mmol/L [facility] Chloride [Moles/Vol] 104 mmol/L 98 - 10 8 mmol/L [facility] CO2 [Moles/Vol] 26 mmol/L 21 - 31 mmol/L [facility] Creatinine [Mass/Vol] 2.96 mg/dL High 0.70 - 1.30 mg/dL [facility] GFR/1.73 sq M.predicted CKD-EPI (S/P/Bld) [Vol rate/Area] 25 Low >=60 mL/min/1.73m2 [facility] Comment on above: Reported eGFR is bas ed on the CKD-EPI 2020 equation using creatinine, age, and sex. Glucose [Mass/Vol] 136 mg/dL High 70 - 99 mg/dL [facility] Interpretation and review of laboratory results Abnormal [facility] Osmolality Calc [Osmolality] 304 [facility] Potassium [Moles/Vol] 4.2 mmol/L 3.5 - 5.0 mmol/L [facility] Sodium [Moles/Vol] 139 mmol/L 135 - 145 mmol/L [facility] Urea nitrogen [Mass/Vol] 41 mg/dL High 7 - 25 mg/dL [facility] Urea nitrogen/Creatinine [Mass ratio] 14 mg/mg [facility] MAGNESIUMon 05-18-2022 Magnesium [Mass/Vol] 2.2 mg/dL 1.6 - 2 .6 mg/dL [facility] Interpretation and review of laboratory results Normal [facility] Magnesium [Mass/Vol] 1.7 mg/dL 1.6 - 2 .6 mg/dL [facility] No Panel Informationon 05-18 Interpretation and review of laboratory results Abnormal [facility] Interpretation and review of laboratory results Normal [facility] PHOSPHATE, INORGANICon 05-18 Phosphate [Mass/Vol] 2.0 mg/dL Low 2.2 - 4 .6 mg/dL [facility] Interpretation and review of laboratory results Normal [facility] Phosphate [Mass/Vol] 2.8 mg/dL 2.2 - 4 .6 mg/dL [facility] PT,INR,PTTon 05-18-2022 aPTT Coag (PPP) [Time] 31.0 s [facility] INR Coag (Bld) [Relative time] 1.1 {INR} [facility] Interpretation and review of laboratory results Abnormal [facility] PT Coag (PPP) [Time] 14.4 s High [facility] URINE CULTUREOrdered By: Sylvia Campos on 05-18-2022 Bacteria identified Cx Nom (Unsp spec) No Growth [facility] CBC,PLATELETSon 05-17-2022 Erythrocyte distribution width (RBC) [Ratio] 12.8 % 10.9 - 14.3 % [facility] Hematocrit (Bld) [Volume fraction] 42.8 % 39.6 - 48.8 % [facility] Hemoglobin (Bld) [Mass/Vol] 13.3 g/dL Low 13.4 - 16.8 g/dL [facility] Interpretation and review of laboratory results Abnormal [facility] MCH (RBC) [Entitic mass] 28.9 pg 26.1 - 33.3 pg [facility] MCHC (RBC) [Mass/Vol] 31.1 g/dL Low 31.9 - 36.5 g/dL [facility] MCV (RBC) [Entitic vol] 92.8 fL 79.0 - 94.5 fL [facility] Platelet mean volume (Bld) [Entitic vol] 10.3 fL 8.7 - 12.3 fL [facility] Platelets (Bld) [#/Vol] 188 10*3/uL 146 - 337 K/uL [facility] RBC (Bld) [#/Vol] 4.61 10*6/uL [facility] WBC (Bld) [#/Vol] 16.61 10*3/uL High 3.73 - 10 .10 K/uL [facility] CHEM 7 (LYTES,BUN,CREA,GLUC) Ordered By: Kaylah Mc on 05-17-2022 Anion gap [Moles/Vol] 15 mmol/L 7 - 17 mmol/L [facility] Chloride [Moles/Vol] 103 mmol/L 98 - 10 8 mmol/L [facility] CO2 [Moles/Vol] 23 mmol/L 21 - 31 mmol/L [facility] Creatinine [Mass/Vol] 5.95 mg/dL High 0.70 - 1.30 mg/dL [facility] GFR/1.73 sq M.predicted CKD-EPI (S/P/Bld) [Vol rate/Area] 11 Low >=60 mL/min/1.73m2 [facility] Comment on above: Reported eGFR is bas ed on the CKD-EPI 2020 equation using creatinine, age, and sex. Glucose [Mass/Vol] 165 mg/dL High 70 - 99 mg/dL [facility] Interpretation and review of laboratory results Abnormal [facility] Osmolality Calc [Osmolality] 305 [facility] Potassium [Moles/Vol] 4.6 mmol/L 3.5 - 5.0 mmol/L [facility] Sodium [Moles/Vol] 136 mmol/L 135 - 145 mmol/L [facility] Urea nitrogen [Mass/Vol] 52 mg/dL High 7 - 25 mg/dL [facility] Urea nitrogen/Creatinine [Mass ratio] 9 mg/mg [facility] CHEM 7 (LYTES,BUN,CREA,GLUC) Ordered By: Kehinde Olsen on 05-17-2022 Anion gap [Moles/Vol] 24 mmol/L High 7 - 17 mmol/L [facility] Chloride [Moles/Vol] 100 mmol/L 98 - 10 8 mmol/L [facility] CO2 [Moles/Vol] 16 mmol/L Low 21 - 31 mmol/L [facility] Creatinine [Mass/Vol] 8.08 mg/dL High 0.70 - 1.30 mg/dL [facility] GFR/1.73 sq M.predicted CKD-EPI (S/P/Bld) [Vol rate/Area] 7 Low >=60 mL/min/1.73m2 [facility] Comment on above: Reported eGFR is bas ed on the CKD-EPI 2020 equation using creatinine, age, and sex. Glucose [Mass/Vol] 164 mg/dL High 70 - 99 mg/dL [facility] Interpretation and review of laboratory results Abnormal [facility] Osmolality Calc [Osmolality] 305 [facility] Potassium [Moles/Vol] 5.0 mmol/L 3.5 - 5.0 mmol/L [facility] Sodium [Moles/Vol] 135 mmol/L 135 - 145 mmol/L [facility] Urea nitrogen [Mass/Vol] 56 mg/dL High 7 - 25 mg/dL [facility] Urea nitrogen/Creatinine [Mass ratio] 7 mg/mg [facility] LAVENDER TOP TUBEon 05-17-20 [facility] MAGNESIUMon 05-17-2022 Interpretation and review of laboratory results Normal [facility] Magnesium [Mass/Vol] 1.8 mg/dL 1.6 - 2 .6 mg/dL [facility] Interpretation and review of laboratory results Normal [facility] Magnesium [Mass/Vol] 1.6 mg/dL 1.6 - 2 .6 mg/dL [facility] No Panel Informationon 05-17 [facility] PHOSPHATE, INORGANICon 05-17 Interpretation and review of laboratory results Abnormal [facility] Phosphate [Mass/Vol] 4.9 mg/dL High 2.2 - 4 .6 mg/dL [facility] PT,INR,PTTon 05-17-2022 aPTT Coag (PPP) [Time] 33.0 s [facility] INR Coag (Bld) [Relative time] 1.3 {INR} High [facility] Interpretation and review of laboratory results Abnormal [facility] PT Coag (PPP) [Time] 15.7 s High [facility] Portable XR Chest Viewson IMPRESSION: No acute [...] Stable cardiomegaly. IMPRESSION IMPRESSION: No acute findings. [facility] Radiology Study observation (narrative) [facility] Portable XR Chest ViewsOrder ed By: David Sanz on 05-17-2022 [facility] Work Phone: URINALYSISOrdered By: Michael patel Ma on 05-17-2022 Appearance (U) Cloudy Abnormal Clear [facility] Comment on above: Results may be inacc urate due to color interference. Clinical correlation recommended. Bacteria LM Ql (Urine sed) ABSENT ABSENT [facility] Color (U) Red Abnormal Yellow [facility] Comment on above: Results may be inacc urate due to color interference. Clinical correlation recommended. Epithelial cells.squamous LM Ql (Urine sed) ABSENT 1/hpf = 1+, 2-5/hpf = 2+, 0/hpf = 0+, ABSENT [facility] Glucose Test strip (U) [Mass/Vol] Negative Negative [facility] Comment on above: Results may be inacc urate due to color interference. Clinical correlation recommended. Interpretation and review of laboratory results Abnormal [facility] Ketones (U) [Mass/Vol] Trace Abnormal Negative [facility] Comment on above: Results may be inacc urate due to color interference. Clinical correlation recommended. Leukocyte esterase Test strip Ql (U) Large Abnormal Negative [facility] Comment on above: Results may be inacc urate due to color interference. Clinical correlation recommended. Nitrite Ql (U) Negative Negative [facility] Comment on above: Results may be inacc urate due to color interference. Clinical correlation recommended. pH (U) 5.0 [pH] 5.0 - 7.0 [facility] Comment on above: Results may be inacc urate due to color interference. Clinical correlation recommended. Protein (U) [Mass/Vol] mg/dL Abnormal Negative [facility] Comment on above: Results may be inacc urate due to color interference. Clinical correlation recommended. RBC (U) [#/Vol] Large Abnormal Negative [facility] Comment on above: Results may be inacc urate due to color interference. Clinical correlation recommended. RBC LM.HPF (Urine sed) [#/Area] /[HPF] Abnormal 0 - 2 /HPF [facility] Specific gravity (U) [Rel density] 1.016 [facility] Comment on above: Results may be inacc urate due to color interference. Clinical correlation recommended. Urobilinogen (U) [Mass/Vol] 0.2 E.U./dL 0.2 E.U/dL, 1.0 E.U/dL [facility] Comment on above: Results may be inacc urate due to color interference. Clinical correlation recommended. WBC LM.HPF (Urine sed) [#/Area] /[HPF] Abnormal 0 - 5 /HPF [facility] URINE CULTUREOrdered By: Tyler Tiwari on 05-17-2022 Bacteria identified Cx Nom (Unsp spec) No Growth [facility] CBC,PLATELETSon 05-16-2022 Erythrocyte distribution width (RBC) [Ratio] 12.9 % 10.9 - 14.3 % [facility] Hematocrit (Bld) [Volume fraction] 46.5 % 39.6 - 48.8 % [facility] Hemoglobin (Bld) [Mass/Vol] 14.7 g/dL 13.4 - 16.8 g/dL [facility] Interpretation and review of laboratory results Abnormal [facility] MCH (RBC) [Entitic mass] 28.3 pg 26.1 - 33.3 pg [facility] MCHC (RBC) [Mass/Vol] 31.6 g/dL Low 31.9 - 36.5 g/dL [facility] MCV (RBC) [Entitic vol] 89.6 fL 79.0 - 94.5 fL [facility] Platelet mean volume (Bld) [Entitic vol] 10.3 fL 8.7 - 12.3 fL [facility] Platelets (Bld) [#/Vol] 188 10*3/uL 146 - 337 K/uL [facility] RBC (Bld) [#/Vol] 5.19 10*6/uL [facility] WBC (Bld) [#/Vol] 12.55 10*3/uL High 3.73 - 10 .10 K/uL [facility] CHEM 7 (LYTES,BUN,CREA,GLUC) Ordered By: Alma Pena on 05-16-2022 Anion gap [Moles/Vol] 14 mmol/L 7 - 17 mmol/L [facility] Chloride [Moles/Vol] 103 mmol/L 98 - 10 8 mmol/L [facility] CO2 [Moles/Vol] 22 mmol/L 21 - 31 mmol/L [facility] Creatinine [Mass/Vol] 6.09 mg/dL High 0.70 - 1.30 mg/dL [facility] GFR/1.73 sq M.predicted CKD-EPI (S/P/Bld) [Vol rate/Area] 10 Low >=60 mL/min/1.73m2 [facility] Comment on above: Reported eGFR is bas ed on the CKD-EPI 2020 equation using creatinine, age, and sex. Glucose [Mass/Vol] 134 mg/dL High 70 - 99 mg/dL [facility] Interpretation and review of laboratory results Abnormal [facility] Osmolality Calc [Osmolality] 298 [facility] Potassium [Moles/Vol] 4.9 mmol/L 3.5 - 5.0 mmol/L [facility] Sodium [Moles/Vol] 134 mmol/L Low 135 - 145 mmol/L [facility] Comment on above: Results inconsistent with previous results Urea nitrogen [Mass/Vol] 49 mg/dL High 7 - 25 mg/dL [facility] Urea nitrogen/Creatinine [Mass ratio] 8 mg/mg [facility] CHEM 7 (LYTES,BUN,CREA,GLUC) on 05-16-2022 Anion gap [Moles/Vol] 17 mmol/L 7 - 17 mmol/L [facility] Chloride [Moles/Vol] 106 mmol/L 98 - 10 8 mmol/L [facility] CO2 [Moles/Vol] 22 mmol/L 21 - 31 mmol/L [facility] Creatinine [Mass/Vol] 5.23 mg/dL High 0.70 - 1.30 mg/dL [facility] GFR/1.73 sq M.predicted CKD-EPI (S/P/Bld) [Vol rate/Area] 13 Low >=60 mL/min/1.73m2 [facility] Comment on above: Reported eGFR is bas ed on the CKD-EPI 2020 equation using creatinine, age, and sex. Glucose [Mass/Vol] 116 mg/dL High 70 - 99 mg/dL [facility] Interpretation and review of laboratory results Abnormal [facility] Osmolality Calc [Osmolality] 305 [facility] Potassium [Moles/Vol] 4.6 mmol/L 3.5 - 5.0 mmol/L [facility] Sodium [Moles/Vol] 140 mmol/L 135 - 145 mmol/L [facility] Urea nitrogen [Mass/Vol] 42 mg/dL High 7 - 25 mg/dL [facility] Urea nitrogen/Creatinine [Mass ratio] 8 mg/mg [facility] EXTRA MICROon 05-16-2022 [facility] LT BLUE TOP TUBEon 2 [facility] LYTES (NA, K, CL) - URINE - RANDOMon 05-16-2022 Chloride (24H U) [Moles/Vol] 68 mmol/L [facility] Potassium (24H U) [Moles/Vol] 36.7 mmol/L [facility] Sodium (24H U) [Moles/Vol] 55 mmol/L [facility] The reference range has not been established for random urine specimens. The test result should be integrated into the clinical context for interpretation. [facility] MAGNESIUMon 05-16-2022 Interpretation and review of laboratory results Normal [facility] Magnesium [Mass/Vol] 1.7 mg/dL 1.6 - 2 .6 mg/dL [facility] NOVEL CORONAVIRUS PCROrdered By: Edson Candelario on 05-16-2022 SARS-CoV-2 (COVID-19) RNA ESTELITA+probe Ql (Unsp spec) Not detected NOT DETECTED [facility] Comment on above: [facility] Negative results do [...] use authorization for use by authorized laboratories. [facility] No Panel Informationon 05-16 [facility] OSMOLALITY, URINEon 05-16-20 Interpretation and review of laboratory results Normal [facility] Osmolality (U) [Osmolality] 320 mosm/kg [facility] The reference range has not been established for random urine specimens. The test result should be integrated into the clinical context for interpretation. [facility] PROCALCITONINon 05-16-2022 Interpretation and review of laboratory results Normal [facility] Procalcitonin [Mass/Vol] 0.18 ng/mL <0.50 [facility] Comment on above: Procalcitonin is an [...] and trend procalcitonin in various clinical settings. [email or web address] Two common cutoffs associated with bacterial infections are as follows. Respiratory tract infections: >0.25 ng/mL Sepsis/septic shock: >0.5 ng/mL Procalcitonin should not be used alone as a diagnostic tool, however. All procalcitonin results should be interpreted in association with the patients clinical condition and all laboratory findings. [facility] PT,INR,PTTon 05-16-2022 aPTT Coag (PPP) [Time] 30.3 s [facility] INR Coag (Bld) [Relative time] 1.1 {INR} [facility] Interpretation and review of laboratory results Normal [facility] PT Coag (PPP) [Time] 14.1 s [facility] SARS-CoV-2 (COVID-19) RNA NA A+probe Ql (Unsp spec)Ordered By: Edson Candelario on 05-16-2022 Interpretation and review of laboratory results Normal [facility] TACROLIMUS LEVEL, TROUGH ([place] E DRUG LEVEL)Ordered By: Mariama Nick on 05-16-2022 Interpretation and review of laboratory results Normal [facility] Tacrolimus (Bld) [Mass/Vol] 4.1 ng/mL Bone Marrow Transplant: 4.0-12.0, Therapeutic: 5.0-15.0 [facility] Method performed is a chemiluminescent microparticle immunoasssay on the [employer] i2000. The range is based on experience at [facility] and users should be aware that target concentrations vary widely depending on concomitant therapy, time post-transplant, and desired degree of immunosuppression. [facility] URINE PROTEIN/CREA RATIO, RA Smiley 05-16-2022 Creatinine (24H U) [Mass/Vol] 59.82 mg/dL [facility] Protein Unsp time (U) [Mass/Vol] 111 mg/dL [facility] Protein/Creatinine (U) [Mass ratio] 1.856 mg/g [facility] US for transplanted kidney l imitedon [...] appearing vascular flow in the transplant kidney. [facility] Radiology Study observation (narrative) [facility] US for transplanted kidney l imitedOrdered By: Rosendo Matute on 05-16-2022 [facility] Work Phone: CBC AND ELECTRONIC DIFFon Basophils (Bld) [#/Vol] 10*3/uL 0.00 - 0.09 K/uL [facility] Basophils/100 WBC (Bld) 0.2 % [facility] Differential cell count method Nom (Bld) Electronic Differential [facility] Eosinophils (Bld) [#/Vol] 10*3/uL 0.00 - 0.48 K/uL [facility] Eosinophils/100 WBC (Bld) 0.0 % [facility] Erythrocyte distribution width (RBC) [Ratio] 12.8 % 10.9 - 14.3 % [facility] Hematocrit (Bld) [Volume fraction] 46.0 % 39.6 - 48.8 % [facility] Hemoglobin (Bld) [Mass/Vol] 14.6 g/dL 13.4 - 16.8 g/dL [facility] Immature granulocytes (Bld) [#/Vol] 0.07 10*3/uL <=0.08 [facility] Immature granulocytes/100 WBC (Bld) 0.4 % [facility] Interpretation and review of laboratory results Abnormal [facility] Lymphocytes (Bld) [#/Vol] 1.49 10*3/uL 0.83 - 3.57 K/uL [facility] Lymphocytes/100 WBC (Bld) 9.4 % [facility] MCH (RBC) [Entitic mass] 28.2 pg 26.1 - 33.3 pg [facility] MCHC (RBC) [Mass/Vol] 31.7 g/dL Low 31.9 - 36.5 g/dL [facility] MCV (RBC) [Entitic vol] 89.0 fL 79.0 - 94.5 fL [facility] Monocytes (Bld) [#/Vol] 1.45 10*3/uL High 0.24 - 0.93 K/uL [facility] Monocytes/100 WBC (Bld) 9.2 % [facility] Neutrophils (Bld) [#/Vol] 12.77 10*3/uL High 1.57 - 6.19 K/uL [facility] Nucleated RBC/100 WBC (Bld) [Ratio] 0.0 % <=0.2 /100 WBC [facility] Platelet mean volume (Bld) [Entitic vol] 9.9 fL 8.7 - 12.3 fL [facility] Platelets (Bld) [#/Vol] 250 10*3/uL 146 - 337 K/uL [facility] RBC (Bld) [#/Vol] 5.17 10*6/uL [facility] Segmented neutrophils/100 WBC (Bld) 80.8 % [facility] WBC (Bld) [#/Vol] 15.81 10*3/uL High 3.73 - 10 .10 K/uL [facility] CBC AUTO DIFFon 05-15-2022 BASO # 0.0 103/ul Normal 0.0-0.1 [facility] Comment on above: Performed By: #### C BC #### [facility] [address] [address] [address] Dwight Waters Basophils/100 WBC (Bld) 0.3 % Normal 0.2-2.0 [facility] Comment on above: Performed By: #### C BC #### [facility] [address] [address] [address] Dwight Waters EO # 0.1 103/ul Normal 0.0-0.7 [facility] Comment on above: Performed By: #### C BC #### [facility] [address] [address] [address] Dwight Waters Eosinophils/100 WBC (Bld) 0.8 % Critically low 0.9-7.0 [facility] Comment on above: Performed By: #### C BC #### [facility] [address] [address] [address] Dwight Waters Erythrocyte distribution width (RBC) [Ratio] 12.7 % Normal 11.0-15.0 [facility] Comment on above: Performed By: #### C BC #### [facility] [address] [address] [address] Dwight Waters Hematocrit (Bld) [Volume fraction] 43.5 % Normal 42.0-54.0 [facility] Comment on above: Performed By: #### C BC #### [facility] [address] [address] [address] Dwight Waters Hemoglobin (Bld) [Mass/Vol] 14.4 g/dL Normal 14.0-18.0 [facility] Comment on above: Performed By: #### C BC #### [facility] [address] [address] [address] Dwight Waters IG # 0.02 10e3/ul Normal 0.00-0.03 [facility] Comment on above: Performed By: #### C BC #### [facility] [address] [place] [address] Dr. Dwight Waters IG % 0.2 % Normal 0.0-0.5 [facility] Comment on above: Performed By: #### C BC #### [facility] [address] [place] [address] Dr. Dwight Waters LYMPH # 1.5 103/ul Normal 1.2-3.8 [facility] Comment on above: Performed By: #### C BC #### [facility] [address] [place] [address] Dr. Dwight Waters Lymphocytes/100 WBC (Bld) 12.5 % Critically low 20.5-60.0 [facility] Comment on above: Performed By: #### C BC #### [facility] [address] [place] [address] Dr. Dwight Waters MANUAL DIFF REQ NO Normal [facility] Comment on above: Performed By: #### C BC #### [facility] [address] [place] [address] Dr. Dwight Waters MCH (RBC) [Entitic mass] 28.6 pg Normal 25.9-34.0 [facility] Comment on above: Performed By: #### C BC #### [facility] [address] [place] [address] Dr. Dwight Waters MCHC (RBC) [Mass/Vol] 33.1 g/dL Normal 29.9-35.2 [facility] Comment on above: Performed By: #### C BC #### [facility] [address] [place] [address] Dr. Dwight Waters MCV (RBC) [Entitic vol] 86.3 fL Normal 80.0-94.0 [facility] Comment on above: Performed By: #### C BC #### [facility] [address] [place] [address] Dr. Dwight Waters MONO # 1.0 103/ul Critically high 0.3-0.8 [facility] Comment on above: Performed By: #### C BC #### [facility] [address] [address] [address] Dwight Waters Monocytes/100 WBC (Bld) 8.2 % Normal 1.7-12.0 [facility] Comment on above: Performed By: #### C BC #### [facility] [address] [address] [address] Dwight Waters NEUT # 9.1 103/ul Critically high 1.4-6.5 [facility] Comment on above: Performed By: #### C BC #### [facility] [address] [address] [address] Dwight Waters Neutrophils/100 WBC (Bld) 78.0 % Critically high 43.0-75.0 [facility] Comment on above: Performed By: #### C BC #### [facility] [address] [place] [address] Dr. Dwight Waters Platelet mean volume (Bld) [Entitic vol] 9.8 fL Normal 9.5-13.5 [facility] Comment on above: Performed By: #### C BC #### [facility] [address] [address] [address] Dwight Waters PLT 251 103/ul Normal 150-450 [facility] Comment on above: Performed By: #### C BC #### [facility] [address] [place] [address] Dr. Dwight Waters RBC 5.04 106/ul Normal 4.70-6.10 [facility] Comment on above: Performed By: #### C BC #### [facility] [address] [place] [address] Dr. Dwight Waters WBC 11.6 103/ul Critically high 4.0-11.0 [facility] [facility] Comment on above: Performed By: #### C BC #### [facility] [address] [place] [address] Dr. Dwight Waters CHEM 6 (LYTES, BUN CREA)on 0 05-15-2022 Anion gap [Moles/Vol] 12 mmol/L 7 - 17 mmol/L [facility] Chloride [Moles/Vol] 105 mmol/L 98 - 10 8 mmol/L [facility] CO2 [Moles/Vol] 26 mmol/L 21 - 31 mmol/L [facility] Creatinine [Mass/Vol] 2.85 mg/dL High 0.70 - 1.30 mg/dL [facility] GFR/1.73 sq M.predicted CKD-EPI (S/P/Bld) [Vol rate/Area] 26 Low >=60 mL/min/1.73m2 [facility] Comment on above: Reported eGFR is bas ed on the CKD-EPI 2020 equation using creatinine, age, and sex. Potassium [Moles/Vol] 4.6 mmol/L 3.5 - 5.0 mmol/L [facility] Sodium [Moles/Vol] 138 mmol/L 135 - 145 mmol/L [facility] Urea nitrogen [Mass/Vol] 32 mg/dL High 7 - 25 mg/dL [facility] Urea nitrogen/Creatinine [Mass ratio] 11 mg/mg [facility] CT ABD/PELVIS WO CONon 05-15 CT [...] transplanted kidney with moderate right-sided hydronephrosis. Atrophic [place] kidneys with moderate right-sided hydronephrosis. Multiple nonobstructive [...] transplanted kidney with moderate right-sided hydronephrosis. Atrophic [place] kidneys with moderate right-sided hydronephrosis. Multiple nonobstructive right renal calculi measuring up to 8 mm. FOLLOW-UP: Follow-up as clinically indicated. Electronically authenticated by: LYNDSAY JEAN Date: 2022-05-15 05:04 Normal [facility]on 04-30 SARS-CoV-2 (COVID-19) RNA ESTELITA+probe Ql (Unsp spec) Not detected Normal NOT DETECTED [facility] Comment on above: Result Comment: [...] for this test is supported by the Mobile [employer] Operator of Health and Human Service's declaration that [...] used). Performed By: #### U RTPCR #### [facility] [address] [address] [address] Dwight Waters GLUCOSEon 05-15-2022 Glucose [Mass/Vol] 141 mg/dL High 70 - 99 mg/dL [facility] GOLD TOP TUBEon 05-15-2022 [facility] HEPATIC FUNCTION PANELon Albumin [Mass/Vol] 4.3 g/dL 3.5 - 5.0 g/dL [facility] ALP [Catalytic activity/Vol] 85 U/L 32 - 126 U/L [facility] ALT [Catalytic activity/Vol] 13 U/L 10 - 52 U/L [facility] AST [Catalytic activity/Vol] 15 U/L 10 - 39 U/L [facility] Bilirubin [Mass/Vol] 0.8 mg/dL <1.5 [facility] Bilirubin.direct [Mass/Vol] 0.2 mg/dL <0.3 [facility] Interpretation and review of laboratory results Normal [facility] Protein [Mass/Vol] 7.3 g/dL 6.4 - 8.3 g/dL [facility] LIPASEon 05-15-2022 Lipase [Catalytic activity/Vol] 8 U/L Low 11 - 82 U/L [facility] No Panel Informationon 05-15 Interpretation and review of laboratory results Abnormal [facility] PROF 14(COMP METB)on 022 Albumin [Mass/Vol] 3.8 g/dL Normal 3.4-5.0 [facility] Comment on above: Performed By: #### U RTPCR #### [facility] [address] [place] [address] Dr. Dwight Waters Albumin/Globulin [Mass ratio] 1.1 {ratio} Normal [facility] Comment on above: Performed By: #### U RTPCR #### [facility] [address] [place] [address] Dr. Dwight Waters ALP [Catalytic activity/Vol] 92 U/L Normal 46-116 [facility] Comment on above: Performed By: #### U RTPCR #### [facility] [address] [place] [address] Dr. Dwight Waters ALT [Catalytic activity/Vol] 25 U/L Normal 16-63 [facility] Comment on above: Performed By: #### U RTPCR #### [facility] [address] [place] [address] Dr. Dwight Waters Anion gap [Moles/Vol] 14.6 mmol/L Normal [facility] Comment on above: Performed By: #### U RTPCR #### [facility] [address] [address] [address] Dwight Waters AST [Catalytic activity/Vol] 17 U/L Normal 15-37 [facility] Comment on above: Performed By: #### U RTPCR #### [facility] [address] [address] [address] Dwight Waters Bilirubin [Mass/Vol] 0.6 mg/dL Normal 0.2-1.0 [facility] Comment on above: Performed By: #### U RTPCR #### [facility] [address] [address] [address] Dwight Waters Calcium [Mass/Vol] 9.9 mg/dL Normal 8.5-10.1 [facility] Comment on above: Performed By: #### U RTPCR #### [facility] [address] [place] [address] Dr. Dwight Waters Chloride [Moles/Vol] 106 mmol/L Normal 98-107 [facility] Comment on above: Performed By: #### U RTPCR #### [facility] [address] [address] [address] Dwight Waters CO2 [Moles/Vol] 24.2 mmol/L Normal 21.0-32.0 [facility] Comment on above: Performed By: #### U RTPCR #### [facility] [address] [address] [address] Dwight Waters Creatinine [Mass/Vol] 1.58 mg/dL Critically high 0.70-1.30 [facility] Comment on above: Performed By: #### U RTPCR #### [facility] [address] [address] [address] Dwight Waters EGFR-AF CUBAN 56 mL/min/1.73m2 Critically low >=60 [facility] Comment on above: Performed By: #### U RTPCR #### [facility] [address] [address] [address] Dwight Waters EGFR-NON AF CUBAN 46 mL/min/1.73m2 Critically low >=60 [facility] Comment on above: Performed By: #### U RTPCR #### [facility] [address] [address] [address] Dwight Waters Globulin (S) [Mass/Vol] 3.5 g/dL Normal [facility] Comment on above: Performed By: #### U RTPCR #### [facility] [address] [address] [address] Dwight Waters Glucose [Mass/Vol] 162 mg/dL Critically high 74-106 [facility] Comment on above: Performed By: #### U RTPCR #### [facility] [address] [address] [address] Dwight Waters Potassium [Moles/Vol] 3.8 mmol/L Normal 3.5-5.1 [facility] Comment on above: Performed By: #### U RTPCR #### [facility] [address] [address] [address] Dwight Waters Protein [Mass/Vol] 7.3 g/dL Normal 6.4-8.2 [facility] Comment on above: Performed By: #### U RTPCR #### [facility] [address] [address] [address] Dwight Waters Sodium [Moles/Vol] 141 mmol/L Normal 136-145 [facility] Comment on above: Performed By: #### U RTPCR #### [facility] [address] [address] [address] Dwight Waters Urea nitrogen [Mass/Vol] 22.0 mg/dL Critically high 7.0-18.0 [facility] Comment on above: Performed By: #### U RTPCR #### [facility] [address] [address] [address] Dwight Waters Urea nitrogen/Creatinine [Mass ratio] 13.9 mg/mg Normal [facility] Comment on above: Performed By: #### U RTPCR #### [facility] [address] [place] [address] Dr. Dwight Waters Portable XR Chest Viewson [...] chest. IMPRESSION IMPRESSION: No acute cardiopulmonary disease [facility] Radiology Study observation (narrative) [facility] Portable XR Chest ViewsOrder ed By: Vladislav Omer on 05-15-2022 [facility] URINE DIPSTICK; REFLEX MICRO SCOPY; REFLEX CULTURE PERFORMABLEon 05-15-2022 Appearance (U) Clear Clear [facility] Color (U) Yellow Yellow [facility] Glucose Test strip (U) [Mass/Vol] 100 mg/dL Abnormal Negative [facility] Interpretation and review of laboratory results Abnormal [facility] Ketones (U) [Mass/Vol] Negative Negative [facility] Leukocyte esterase Test strip Ql (U) Large Abnormal Negative [facility] Nitrite Ql (U) Negative Negative [facility] pH (U) 6.0 [pH] 5.0 - 7.0 [facility] Protein (U) [Mass/Vol] 100 mg/dL Abnormal Negative [facility] RBC (U) [#/Vol] Large Abnormal Negative [facility] Specific gravity (U) [Rel density] 1.010 [facility] Urobilinogen (U) [Mass/Vol] 0.2 E.U./dL 0.2 E.U/dL, 1.0 E.U/dL [facility] URINE MICROSCOPIC WITH REFLE X TO CULTUREOrdered By: Rey Bro on 05-15-2022 Bacteria LM Ql (Urine sed) ABSENT ABSENT [facility] Epithelial cells.squamous LM Ql (Urine sed) ABSENT 1/hpf = 1+, 2-5/hpf = 2+, 0/hpf = 0+, ABSENT [facility] Interpretation and review of laboratory results Abnormal [facility] RBC LM.HPF (Urine sed) [#/Area] /[HPF] Abnormal 0 - 2 /HPF [facility] WBC LM.HPF (Urine sed) [#/Area] 10-20 Abnormal 0 - 5 /HPF [facility] CT ABD/PELVIS WO CONon 05-12 CT ABD/PELVIS WO CON Begin Addendum #[address] Lund 3:25 PM EST 05/11/2022. Begin Addendum #2 IMPRESSION below should also contain the followin. 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 The [place] kidneys are progressively atrophic bilaterally compared to [...] of 06/14/2020 are no longer present. The [place] distal right ureter is decompressed beyond this [...] with surgical history for renal graft and [place] right urinary drainage, as a discrete ureteroneocystostomy is not identified, and the graft may be draining via a ureteroureterostomy. Urology consultation recommended. 3. [place] kidneys are bilaterally atrophic, with right renal sinus calcifications consistent with nonobstructing right [place] renal calculi up to 6 mm. Normal [facility] CBC AUTO DIFFon 05-11-2022 BASO # 0.1 103/ul Normal 0.0-0.1 [facility] Comment on above: Performed By: #### U RTPCR #### [facility] [address] [address] [address] Dwight Waters Basophils/100 WBC (Bld) 0.8 % Normal 0.2-2.0 [facility] Comment on above: Performed By: #### U RTPCR #### [facility] [address] [address] [address] Dwight Waters EO # 0.2 103/ul Normal 0.0-0.7 [facility] Comment on above: Performed By: #### U RTPCR #### [facility] [address] [place] [address] Dr. Dwight Waters Eosinophils/100 WBC (Bld) 2.5 % Normal 0.9-7.0 [facility] Comment on above: Performed By: #### U RTPCR #### [facility] [address] [place] [address] Dr. Dwight Waters Erythrocyte distribution width (RBC) [Ratio] 12.5 % Normal 11.0-15.0 [facility] Comment on above: Performed By: #### U RTPCR #### [facility] [address] [place] [address] Dr. Dwight Waters Hematocrit (Bld) [Volume fraction] 48.3 % Normal 42.0-54.0 [facility] Comment on above: Performed By: #### U RTPCR #### [facility] [address] [place] [address] Dr. Dwight Waters Hemoglobin (Bld) [Mass/Vol] 15.3 g/dL Normal 14.0-18.0 [facility] Comment on above: Performed By: #### U RTPCR #### [facility] [address] [place] [address] Dr. Dwight Waters IG # 0.01 10e3/ul Normal 0.00-0.03 [facility] Comment on above: Performed By: #### U RTPCR #### [facility] [address] [place] [address] Dr. Dwight Waters IG % 0.2 % Normal 0.0-0.5 [facility] Comment on above: Performed By: #### U RTPCR #### [facility] [address] [address] [address] Dwight Waters LYMPH # 1.9 103/ul Normal 1.2-3.8 [facility] Comment on above: Performed By: #### U RTPCR #### [facility] [address] [address] [address] Dwight Waters Lymphocytes/100 WBC (Bld) 29.8 % Normal 20.5-60.0 [facility] Comment on above: Performed By: #### U RTPCR #### [facility] [address] [address] [address] Dwight Waters MANUAL DIFF REQ NO Normal [facility] Comment on above: Performed By: #### U RTPCR #### [facility] [address] [place] [address] Dr. Dwight Waters MCH (RBC) [Entitic mass] 28.2 pg Normal 25.9-34.0 [facility] Comment on above: Performed By: #### U RTPCR #### [facility] [address] [address] [address] Dwight Waters MCHC (RBC) [Mass/Vol] 31.7 g/dL Normal 29.9-35.2 [facility] Comment on above: Performed By: #### U RTPCR #### [facility] [address] [address] [address] Dwight Waters MCV (RBC) [Entitic vol] 89.1 fL Normal 80.0-94.0 [facility] Comment on above: Performed By: #### U RTPCR #### [facility] [address] [address] [address] Dwight Waters MONO # 0.6 103/ul Normal 0.3-0.8 [facility] Comment on above: Performed By: #### U RTPCR #### [facility] [address] [address] [address] Dwight Waters Monocytes/100 WBC (Bld) 9.0 % Normal 1.7-12.0 [facility] Comment on above: Performed By: #### U RTPCR #### [facility] [address] [place] [address] Dr. Dwight Waters NEUT # 3.6 103/ul Normal 1.4-6.5 [facility] Comment on above: Performed By: #### U RTPCR #### [facility] [address] [place] [address] Dr. Dwight Waters Neutrophils/100 WBC (Bld) 57.7 % Normal 43.0-75.0 [facility] Comment on above: Performed By: #### U RTPCR #### [facility] [address] [place] [address] Dr. Dwight Waters Platelet mean volume (Bld) [Entitic vol] 9.9 fL Normal 9.5-13.5 [facility] Comment on above: Performed By: #### U RTPCR #### [facility] [address] [place] [address] Dr. Dwight Waters PLT 249 103/ul Normal 150-450 [facility] Comment on above: Performed By: #### U RTPCR #### [facility] [address] [place] [address] Dr. Dwight Waters RBC 5.42 106/ul Normal 4.70-6.10 [facility] Comment on above: Performed By: #### U RTPCR #### [facility] [address] [place] [address] Dr. Dwight Waters WBC 6.3 103/ul Normal 4.0-11.0 [facility] Comment on above: Performed By: #### U RTPCR #### [facility] [address] [place] [address] Dr. Dwight Waters ER URINE PROFILEon 2 Bilirubin Ql (U) Unable to perform testing due to color interference. Abnormal NEGATIVE [facility] Comment on above: Performed By: #### U RTPCR #### [facility] [address] [place] [address] Dr. Dwight Waters Clarity (U) TURBID Abnormal CLEAR [facility] Comment on above: Performed By: #### U RTPCR #### [facility] [address] [place] [address] Dr. Dwight Waters Color (U) RED Abnormal YELLOW [facility] Comment on above: Performed By: #### U RTPCR #### [facility] [address] [place] [address] Dr. Dwight Waters ERUAHJenna A micrscopic examination will be performed if indicated. Normal [facility] Comment on above: Performed By: #### U RTPCR #### [facility] [address] [place] [address] Dr. Dwight Waters Glucose Ql (U) Unable to perform testing due to color interference. Abnormal NEGATIVE [facility] Comment on above: Performed By: #### U RTPCR #### [facility] [address] [place] [address] Dr. Dwight Waters Hemoglobin Ql (U) Unable to perform testing due to color interference. Abnormal NEGATIVE [facility] Comment on above: Performed By: #### U RTPCR #### [facility] [address] [place] [address] Dr. Dwight Waters Ketones Ql (U) Unable to perform testing due to color interference. Abnormal NEGATIVE [facility] Comment on above: Performed By: #### U RTPCR #### [facility] [address] [place] [address] Dr. Dwight Waters LEUKOCYTES Unable to perform testing due to color interference. Abnormal NEGATIVE [facility] Comment on above: Performed By: #### U RTPCR #### [facility] [address] [place] [address] Dr. Dwight Waters Nitrite Ql (U) Unable to perform testing due to color interference. Abnormal NEGATIVE [facility] Comment on above: Performed By: #### U RTPCR #### [facility] [address] [place] [address] Dr. Dwight Waters pH (U) 6.5 [pH] Normal 5-9 [facility] Comment on above: Performed By: #### U RTPCR #### [facility] [address] [place] [address] Dr. Dwight Waters SPEC GRAVITY 1.020 Normal 1.005-<=1.025 [facility] Comment on above: Performed By: #### U RTPCR #### [facility] [address] [place] [address] Dr. Dwight Waters UA PROTEIN Unable to perform testing due to color interference. Normal NEGATIVE/ TRACE [facility] Comment on above: Performed By: #### U RTPCR #### [facility] [address] [place] [address] Dr. Dwight Waters UR MICRO IND INDICATED Normal [facility] Comment on above: Performed By: #### U RTPCR #### [facility] [address] [place] [address] Dr. Dwight Waters UROBILINOGEN Unable to perform testing due to color interference. Normal 0.2 - 1.0 [facility] Comment on above: Performed By: #### U RTPCR #### [facility] [address] [place] [address] Dr. Dwight Waters PROF 14(COMP METB)on 022 Albumin [Mass/Vol] 3.8 g/dL Normal 3.4-5.0 [facility] Comment on above: Performed By: #### C MP #### [facility] [address] [place] [address] Dr. Dwight Waters Albumin/Globulin [Mass ratio] 1.1 {ratio} Normal [facility] Comment on above: Performed By: #### C MP #### [facility] [address] [place] [address] Dr. Dwight Waters ALP [Catalytic activity/Vol] 106 U/L Normal 46-116 [facility] Comment on above: Performed By: #### C MP #### [facility] [address] [place] [address] Dr. Dwight Waters ALT [Catalytic activity/Vol] 30 U/L Normal 16-63 [facility] Comment on above: Performed By: #### C MP #### [facility] [address] [place] [address] Dr. Dwight Waters Anion gap [Moles/Vol] 11.7 mmol/L Normal [facility] Comment on above: Performed By: #### C MP #### [facility] [address] [address] [address] Dwight Waters AST [Catalytic activity/Vol] 16 U/L Normal 15-37 [facility] Comment on above: Performed By: #### C MP #### [facility] [address] [place] [address] Dr. Dwight Waters Bilirubin [Mass/Vol] 0.6 mg/dL Normal 0.2-1.0 [facility] Comment on above: Performed By: #### C MP #### [facility] [address] [place] [address] Dr. Dwight Waters Calcium [Mass/Vol] 9.1 mg/dL Normal 8.5-10.1 [facility] Comment on above: Performed By: #### C MP #### [facility] [address] [place] [address] Dr. Dwight Waters CO2 [Moles/Vol] 27.4 mmol/L Normal 21.0-32.0 [facility] Comment on above: Performed By: #### C MP #### [facility] [address] [place] [address] Dr. Dwight Waters Creatinine [Mass/Vol] 1.18 mg/dL Normal 0.70-1.30 [facility] Comment on above: Performed By: #### C MP #### [facility] [address] [place] [address] Dr. Dwight Waters EGFR-AF CUBAN >60 Normal >=60 [facility] Comment on above: Performed By: #### C MP #### [facility] [address] [place] [address] Dr. Dwight Waters EGFR-NON AF CUBAN >60 Normal >=60 [facility] Comment on above: Performed By: #### C MP #### [facility] [address] [place] [address] Dr. Dwight Waters Globulin (S) [Mass/Vol] 3.6 g/dL Normal [facility] Comment on above: Performed By: #### C MP #### [facility] [address] [place] [address] Dr. Dwight Waters Glucose [Mass/Vol] 192 mg/dL Critically high 74-106 [facility] Comment on above: Performed By: #### C MP #### [facility] [address] [place] [address] Dr. Dwight Waters Potassium [Moles/Vol] 4.1 mmol/L Normal 3.5-5.1 [facility] Comment on above: Performed By: #### C MP #### [facility] [address] [place] [address] Dr. Dwight Waters Protein [Mass/Vol] 7.4 g/dL Normal 6.4-8.2 [facility] Comment on above: Performed By: #### C MP #### [facility] [address] [place] [address] Dr. Dwight Waters Sodium [Moles/Vol] 142 mmol/L Normal 136-145 [facility] Comment on above: Performed By: #### C MP #### [facility] [address] [place] [address] Dr. Dwight Waters Urea nitrogen [Mass/Vol] 17.0 mg/dL Normal 7.0-18.0 [facility] Comment on above: Performed By: #### C MP #### [facility] [address] [place] [address] Dr. Dwight Waters Urea nitrogen/Creatinine [Mass ratio] 14.4 mg/mg Normal [facility] Comment on above: Performed By: #### C MP #### [facility] [address] [place] [address] Dr. Dwight Waters URINE MICROSCOPIC ONLYon BACTERIA NONE SEEN Normal NONE SEEN [facility] Comment on above: Performed By: #### U RTPCR #### [facility] [address] [place] [address] Dr. Dwight Waters Bacteria identified Cx Nom (U) NOT INDICATED Normal [facility] Comment on above: Performed By: #### U RTPCR #### [facility] [address] [place] [address] Dr. Dwight Waters CAST NONE SEEN Normal NONE SEEN [facility] Comment on above: Performed By: #### U RTPCR #### [facility] [address] [address] [address] Dwight Waters Crystals LM Nom (Urine sed) NONE SEEN Normal NONE SEEN [facility] Comment on above: Performed By: #### U RTPCR #### [facility] [address] [place] [address] Dr. Dwight Waters Epithelial cells LM Ql (Urine sed) RARE Normal NONE SEEN /RARE [facility] Comment on above: Performed By: #### U RTPCR #### [facility] [address] [place] [address] Dr. Dwight Waters MUCOUS NONE SEEN Normal NONE SEEN [facility] Comment on above: Performed By: #### U RTPCR #### [facility] [address] [place] [address] Dr. Dwight Waters RBC (U) [#/Vol] /uL Abnormal 0-2 [facility] Comment on above: Performed By: #### U RTPCR #### [facility] [address] [place] [address] Dr. Dwight Waters WBC NONE SEEN Normal NONE SEEN [facility] Comment on above: Performed By: #### U RTPCR #### [facility] [address] [place] [address] Dr. Dwight Waters K (Potassium)on 01-06-2020 Potassium [Moles/Vol] 4.4 mmol/L Normal 3.7-5.3 [facility] Comment on above: Performed By: #### K #### [facility] [address] [place] [address] Manager Documentation: Kehinde Woodward MD Potassiumon 01-06-2020 Potassium [Moles/Vol] 4.4 mmol/L 3.7 - 5.3 mmol/L [facility] Work Phone: Hemoglobin and Hematocrit, B bridget 10-24-2019 Hematocrit (Bld) [Volume fraction] 23.6 % Low 40.7 - 50.3 % [facility], [place] Hemoglobin (Bld) [Mass/Vol] 7.3 g/dL Low 13 - 17 g/dL [facility] [place] Interpretation and review of laboratory results Abnormal [place], [place] Hgb/Hcton 10-24-2019 Hematocrit (Bld) [Volume fraction] 23.6 % Low 40.7-50.3 [facility] Comment on above: Performed By: #### H H #### [facility] [address] [place] [address] Manager Documentation: Kehinde Woodward MD Hemoglobin (Bld) [Mass/Vol] 7.3 g/dL Low 13.0-17.0 [facility] Comment on above: Performed By: #### H H #### [facility] [address] [place] [address] Manager Documentation: Kehinde Woodward MD Hemoglobinon 08-27-2019 Hemoglobin (Bld) [Mass/Vol] 7.5 g/dL Low 13.0-17.0 [facility] Comment on above: Performed By: #### H GB #### [facility] [address] [place], [place] [id number] Manager Documentation: Kehinde Woodward MD Hemoglobin (Bld) [Mass/Vol] 7.5 g/dL Low 13 - 17 g/dL [place], [place] Interpretation and review of laboratory results Abnormal [place] Hemoglobinon 08-08-2019 Hemoglobin (Bld) [Mass/Vol] 8.3 g/dL Low 13.0-17.0 [facility] Comment on above: Performed By: #### H GB #### [address] [place] [place] [address] Manager Documentation: Kehinde Woodward MD Hemoglobin (Bld) [Mass/Vol] 8.3 g/dL Low 13 - 17 g/dL [place] Interpretation and review of laboratory results Abnormal [place] Hemoglobinon 08-04-2019 Hemoglobin (Bld) [Mass/Vol] 8.0 g/dL Low 13.0-17.0 [facility] Comment on above: Performed By: #### H GB #### [facility] [address] [place] [address] Manager Documentation: Kehinde Woodward MD Hemoglobin A1Con 08-03-2019 HbA1c (Bld) [Mass fraction] % Low 4.8-5.9 [facility] Comment on above: Result Comment: The ADA and AACC recommend providing the estimated average glucose result to permit better patient understanding of their HBA1c result. Performed By: #### G LYHGB #### [facility] [address] [place] [address] Manager Documentation: Kehinde Woodward MD Glucose [Mass/Vol] mg/dL mg/dL [place] Comment on above: The ADA and AACC rec ommend providing the estimated average glucose result to permit better patient understanding of their HBA1c result. HbA1c (Bld) [Mass fraction] % Low 4.8 - 5.9 % [place] Interpretation and review of laboratory results Abnormal [place] Hemoglobinon 08-01-2019 Hemoglobin (Bld) [Mass/Vol] 8.1 g/dL Low 13.0-17.0 [facility] Comment on above: Performed By: #### H GB #### [facility] [address] [place] [address] Manager Documentation: Kehinde Woodward MD Hemoglobin (Bld) [Mass/Vol] 8.1 g/dL Low 13 - 17 g/dL [place] Interpretation and review of laboratory results Abnormal [place] Hgb/Hcton 06-10-2019 Hematocrit (Bld) [Volume fraction] 24.3 % Low 40.7-50.3 [facility] Comment on above: Performed By: #### H H #### [facility] [address] [place] [address] Manager Documentation: Kehinde Woodward MD Hemoglobin (Bld) [Mass/Vol] 7.4 g/dL Low 13.0-17.0 [facility] Comment on above: Performed By: #### H H #### [facility] [address] [place] [address] Manager Documentation: Kehinde Woodward MD Hemoglobinon 06-01-2019 Hemoglobin (Bld) [Mass/Vol] 7.2 g/dL Low 13.0-17.0 [facility] Comment on above: Performed By: #### H GB #### [facility] [address] [place], [place] [id number] Manager Documentation: Kehinde Woodward MD K (Potassium)on 01-14-2019 Potassium [Moles/Vol] 3.6 mmol/L Low 3.7-5.3 [facility] Comment on above: Performed By: #### K #### [facility] [address] [place], [place] [id number] Manager Documentation: Kehinde Woodward MD Otheron 10-19-2018 IMPRESSION: 1. [...] characteristics determined by Toxicology Laboratory at [facility]. It has not been cleared or [...] Amitriptyline(50), Amphetamine(250), Atenolol(500), Barbiturates(1000), Benzoylecgonine(50), Buprenorphine(50), Bupropion(25), Caffeine(29308), Chlordiazepoxide(50), Chlorpheniramine(100), Chlorpromazine(50), Citalopram(100), Clonazepam(200), Cocaine(25), Codeine(200), [...] LAB, [facility] TOXICOLOGY SCREEN URINE - UD [facility] 10-12-2018 Drugs identified Screen Nom (U) For Medical Purposes Only, Non-forensic, screen results are presumptive. No confirmatory testing will follow. Invalid Interpretation Code LAB, [facility] Comment on above: This Liquid Chromato graphy Mass Spectrometry (LC/MS/MS) test was developed and its performance characteristics determined by Toxicology Laboratory at [facility]. It has not been cleared or [...] Amitriptyline(50), Amphetamine(250), Atenolol(500), Barbiturates(200), Benzoylecgonine(50), Buprenorphine(500), Bupropion(25), Caffeine(61486), Cannabinoids(THC)(50), Chlordiazepoxide(50), Chlorpheniramine(100), Chlorpromazine(50), Citalopram(100), Clonazepam(200), Cocaine(25), [...] 97.81 [degF] Steve Farrari MBBS Work Phone: [facility] 09-11-2023 10:31-0400 Diastolic blood pressure 66 mm[Hg] Stevemassiel Farrari MBBS Work Phone: [facility] 09-11-2023 10:31-0400 Heart rate 70 /min Steve Farrari MBBS Work Phone: [facility] 09-11-2023 10:31-0400 Respiratory rate 20 /min Steve Farrari MBBS Work Phone: [facility] 09-11-2023 10:31-0400 SaO2% (BldA) [Mass fraction] 91 % Steve Farrari MBBS Work Phone: [facility] 09-11-2023 10:31-0400 Systolic blood pressure 129 mm[Hg] Stevemassiel Farrari MBBS Work Phone: [facility] 09-10-2023 15:50-0400 Body mass index (BMI) [Ratio] 31.99 kg/m2 Stevemassiel Farrari MBBS Work Phone: [facility] 09-10-2023 15:50-0400 Body weight 92.67 kg Steve Yeison MBBS Work Phone: [facility] 09-02-2023 07:32-0400 Body height 170.2 cm Steve Yeison MBBS Work Phone: [facility] 08-28-2023 13:33-0400 Body height 170.2 cm Steve Yeison MBBS Work Phone: [facility] 08-28-2023 13:33-0400 Body mass index (BMI) [Ratio] 32.12 kg/m2 Steve Yeison MBBS Work Phone: [facility] 08-28-2023 13:33-0400 Body temperature 97.3 [degF] Steve Yeison MBBS Work Phone: [facility] 08-28-2023 13:33-0400 Body weight 93.03 kg Steve Yeison MBBS Work Phone: [facility] 08-28-2023 13:33-0400 Diastolic blood pressure 41 mm[Hg] Steve Yeison MBBS Work Phone: [facility] 08-28-2023 13:33-0400 Heart rate 116 /min Steve Yeison MBBS Work Phone: [facility] 08-28-2023 13:33-0400 Systolic blood pressure 106 mm[Hg] Steve Yeison MBBS Work Phone: [facility] 06-12-2023 14:50-0400 Body mass index (BMI) [Ratio] 33.8 kg/m2 Rebeca Olsen WEB SITE ADMINISTRATOR-[employer]ALL MILL OPERATOR Work Phone: [facility] 06-12-2023 14:50-0400 Body temperature 97.3 [degF] Rebeca Olsen WEB SITE ADMINISTRATOR-BALL MILL OPERATOR Work Phone: [facility] 06-12-2023 14:50-0400 Body weight 97.89 kg Rebeca Olsen WEB SITE ADMINISTRATOR-BALL MILL OPERATOR Work Phone: [facility] 06-12-2023 14:50-0400 Diastolic blood pressure 77 mm[Hg] Rebeca Olsen WEB SITE ADMINISTRATOR-BALL MILL OPERATOR Work Phone: [facility] 06-12-2023 14:50-0400 Heart rate 76 /min Rebeca Olsen WEB SITE ADMINISTRATOR-BALL MILL OPERATOR Work Phone: [facility] 06-12-2023 14:50-0400 Systolic blood pressure 146 mm[Hg] Rebeca Olsen WEB SITE ADMINISTRATOR-BALL MILL OPERATOR Work Phone: [facility] 01-16-2023 08:57-0500 Body height 170.2 cm [facility] Work Phone: [facility] 01-16-2023 08:57-0500 Body mass index (BMI) [Ratio] 33.66 kg/m2 [facility] Work Phone: [facility] 01-16-2023 08:57-0500 Body temperature 97.3 [degF] [facility] Work Phone: [facility] 01-16-2023 08:57-0500 Body weight 97.48 kg [facility] Work Phone: [facility] 01-16-2023 08:57-0500 Diastolic blood pressure 75 mm[Hg] [facility] Work Phone: [facility] 01-16-2023 08:57-0500 Heart rate 76 /min [facility] Work Phone: [facility] 01-16-2023 08:57-0500 Systolic blood pressure 142 mm[Hg] [facility] Work Phone: [facility] 09-10-2022 09:38-0400 Body height 170.2 cm Ryan Yepez MD Work Phone: [facility] 09-10-2022 09:38-0400 Body mass index (BMI) [Ratio] 33.67 kg/m2 Ryan Yepez MD Work Phone: [facility] 09-10-2022 09:38-0400 Body weight 97.52 kg Ryan Yepez MD Work Phone: [facility] 09-10-2022 09:38-0400 Diastolic blood pressure 83 mm[Hg] Ryan Yepez MD Work Phone: [facility] 09-10-2022 09:38-0400 Heart rate 64 /min Ryan Yepez MD Work Phone: [facility] 09-10-2022 09:38-0400 SaO2% (BldA) [Mass fraction] 96 % Ryan Yepez MD Work Phone: [facility] 09-10-2022 09:38-0400 Systolic blood pressure 129 mm[Hg] Ryan Yepez MD Work Phone: [facility] 07-07-2022 13:48-0400 Diastolic blood pressure 76 mm[Hg] Ryan Yepez MD Work Phone: [facility] 07-07-2022 13:48-0400 Heart rate 82 /min Ryan Yepez MD Work Phone: [facility] 07-07-2022 13:48-0400 SaO2% (BldA) [Mass fraction] 96 % Ryan Yepez MD Work Phone: [facility] 07-07-2022 13:48-0400 Systolic blood pressure 141 mm[Hg] Ryan Yepez MD Work Phone: [facility] 06-27-2022 13:32-0400 Body height 170.2 cm Ryan Yepez MD Work Phone: [facility] 06-27-2022 13:32-0400 Body mass index (BMI) [Ratio] 34.24 kg/m2 Ryan Yepez MD Work Phone: [facility] 06-27-2022 13:32-0400 Body temperature 98.6 [degF] Ryan Yepez MD Work Phone: [facility] 06-27-2022 13:32-0400 Body weight 99.16 kg Ryan Yepez MD Work Phone: [facility] 06-27-2022 13:32-0400 Diastolic blood pressure 78 mm[Hg] Ryan Yepez MD Work Phone: [facility] 06-27-2022 13:32-0400 Heart rate 77 /min Ryan Yepez MD Work Phone: [facility] 06-27-2022 13:32-0400 SaO2% (BldA) [Mass fraction] 95 % Ryan Yepez MD Work Phone: [facility] 06-27-2022 13:32-0400 Systolic blood pressure 121 mm[Hg] Ryan Yepez MD Work Phone: [facility] 06-27-2022 10:52-0400 Body height 170.2 cm Rena Brewster RN [facility] 06-27-2022 10:52-0400 Body mass index (BMI) [Ratio] 34.46 kg/m2 Rena Brewster RN [facility] 06-27-2022 10:52-0400 Body temperature 98.2 [degF] Rena Brewster RN [facility] 06-27-2022 10:52-0400 Body weight 99.79 kg Rena Brewster RN [facility] 06-27-2022 10:52-0400 Diastolic blood pressure 73 mm[Hg] Rena Brewster RN [facility] 06-27-2022 10:52-0400 Heart rate 78 /min Rena Brewster RN [facility] 06-27-2022 10:52-0400 Respiratory rate 20 /min Rena Brewster RN [facility] 06-27-2022 10:52-0400 SaO2% (BldA) [Mass fraction] 97 % Rena Brewster RN [facility] 06-27-2022 10:52-0400 Systolic blood pressure 135 mm[Hg] Rena Brewster RN [facility] 06-12-2022 14:23-0400 Body mass index (BMI) [Ratio] 34.59 kg/m2 Steve Yeison MBBS Work Phone: [facility] 06-12-2022 14:23-0400 Body temperature 97 [degF] Steve Yeison MBBS Work Phone: [facility] 06-12-2022 14:23-0400 Body weight 100.2 kg Steve Yeison MBBS Work Phone: [facility] 06-12-2022 14:23-0400 Diastolic blood pressure 66 mm[Hg] Steve Yeison MBBS Work Phone: [facility] 06-12-2022 14:23-0400 Heart rate 63 /min Steve Yeison MBBS Work Phone: [facility] 06-12-2022 14:23-0400 Systolic blood pressure 133 mm[Hg] Steve Yeison MBBS Work Phone: [facility] 05-20-2022 15:21-0400 Body temperature 97.9 [degF] Gian Villatoro MD Work Phone: [facility] 05-20-2022 15:21-0400 Diastolic blood pressure 64 mm[Hg] Gian Villatoro MD Work Phone: 9(497)973-790466 [address] 05-20-2022 15:21-0400 Heart rate 55 /min Gian Villatoro MD Work Phone: 1(100)892-101266 [address] 05-20-2022 15:21-0400 Respiratory rate 15 /min Gian Villatoro MD Work Phone: 5(758)346-325233 [place] [address] 05-20-2022 15:21-0400 SaO2% (BldA) [Mass fraction] 95 % Gian Villatoro MD Work Phone: 5(154)819-848133 [place] [address] 05-20-2022 15:21-0400 Systolic blood pressure 145 mm[Hg] Gian Villatoro MD Work Phone: 3(467)581-975533 [place] [address] 05-19-2022 12:15-0400 Body mass index (BMI) [Ratio] 35.87 kg/m2 Gian Villatoro MD Work Phone: 9(260)998-030933 [place] [address] 05-19-2022 12:15-0400 Body weight 103.92 kg Gian Villatoro MD Work Phone: 9(255)658-921633 [place] [address] Comment on above: standing scale 05-16-2022 16:19-0400 Body height 170.2 cm Gian Villatoro MD Work Phone: 7(046)[phone] [place] [address] 10-19-2018 08:44-0500 BMI (Body Mass Index) 26.58 kg/m2 [facility] Work Phone: 10-19-2018 08:44-0500 BP Diastolic 76 mm[Hg] [facility] Work Phone: 10-19-2018 08:44-0500 BP Systolic 144 mm[Hg] [facility] Work Phone: 10-19-2018 08:44-0500 Height 172.7 cm [facility] Work Phone: 10-19-2018 08:44-0500 Pulse (Heart Rate) 92 /min [facility] Work Phone: 10-19-2018 08:44-0500 Pulse Oximetry 99 % [facility] Work Phone: 10-19-2018 08:44-0500 Respiratory Rate 16 /min [facility] Work Phone: 10-19-2018 08:44-0500 Weight 79.29 kg [facility] Work Phone: 10-12-2018 09:50-0500 BMI (Body Mass Index) 27.24 kg/m2 [facility] Work Phone: 10-12-2018 09:50-0500 Body Temperature 98.6 [degF] [facility] Work Phone: 10-12-2018 09:50-0500 BP Diastolic 80 mm[Hg] [facility] Work Phone: 10-12-2018 09:50-0500 BP Systolic 157 mm[Hg] [facility] Work Phone: 10-12-2018 09:50-0500 Height 169.[address] [facility] Work Phone: 10-12-2018 09:50-0500 Pulse (Heart Rate) 94 /min [facility] Work Phone: 10-12-2018 09:50-0500 Weight 78.29 kg Alfredito Restrepo [facility] Work Phone: Encounters Encounter Date Encounter Type Care Provider Facility Start: 11-03-2023 End: 11-03-2023 ambulatory ZULY TANNERLATISHAOmer Not Available Start: 10-06-2023 ambulatory Angel Carpio [facility],PharmD Pharmacy Outpatient RX [facility] Start: 10-06-2023 Patient encounter procedure Angel Carpio [facility] Pharmacy Outpatient RX Yanci Start: 09-29-2023 [facility] Start: 09-24-2023 [facility]ulatory [facility] Start: 09-23-2023 [facility] Start: 09-15-2023 ambulatory [facility] Start: 08-28-2023 End: 09-11-2023 Evaluation and management of inpatient STEVE S YEISON Facility:[facility] Start: 08-28-2023 End: 09-11-2023 Evaluation and management of inpatient Steve S Yeison MBBS Work Phone: [id number] Start: 08-28-2023 ambulatory STEVE S YEISON Facility:[facility] Start: 08-28-2023 End: 08-28-2023 Office outpatient visit 25 minutes Steve S Yeison MBBS Work Phone: [facility] Comment on above: Immunosuppressed sta tus (Primary Dx); Kidney replaced by transplant; Aftercare following organ transplant; High risk medication use; Other general symptoms and signs; Abnormal blood chemistry; Hypertension secondary to other renal disorders Start: 08-19-2023 ambulatory Meka rueda [facility] Pharmacy Outpatient RX [place] Start: 08-19-2023 Patient encounter procedure Meka Munoz [facility] Pharmacy Outpatient RX Yanci Start: 06-12-2023 ambulatory REBECA Fisher ty:[facility] Start: 06-12-2023 End: 06-12-2023 Office outpatient visit 25 minutes Steve S Yeison MBBS Work Phone: [facility] Comment on above: 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) Start: 06-10-2023 ambulatory Maren Bar RPh,PharmD Pharmacy Outpatient RX [place] Start: 06-10-2023 Patient encounter procedure Maren Bar RPh,PharmD Pharmacy Outpatient RX [place] Start: 05-26-2023 [facility] Start: 04-28-2023 End: 04-29-[address] DOCTOR EVANS Facility:[facility] Start: 04-13-2023 End: 04-13-2023 ambulatory [facility] Start: 03-12-2023 ambulatory Angel Fete RPh,PharmD Pharmacy Outpatient RX [place] Start: 03-12-2023 Patient encounter procedure Angel Fete RPh,PharmD Pharmacy Outpatient RX [facility] Start: 03-10-2023 ambulatory Angel Fete RPh,PharmD Pharmacy Outpatient RX [place] Start: 03-10-2023 Patient encounter procedure Angel Fete RPh,PharmD Pharmacy Outpatient RX [place] Start: 03-02-2023 End: 03-03-[address] DOCTOR EVANS Facility:[facility] Start: 01-16-2023 [facility] Start: 01-16-2023 End: 01-16-2023 Office outpatient visit 25 minutes Daisha Max DO Work Phone: [facility] Comment on above: Abnormal blood chemi [...] MD Work Phone: [facility] Comment on above: BPH with obstruction /lower urinary tract symptoms (Primary Dx); Encounter for screening for malignant neoplasm of prostate Start: 08-28-2022 End: 08-29-2022 ambulatory ROB BRUNO Facility:[facility] Start: 08-14-2022 End: 08-15-[address] DOCTOR EVANS Facility:[facility] Start: 07-07-2022 End: 07-07-2022 Patient encounter procedure Ryan Yepez MD Work Phone: [facility] Comment on above: Other hydronephrosis (Primary Dx); [...] MD Work Phone: [facility] Comment on above: Other hydronephrosis (Primary Dx) [...] Phone: [facility] Comment on above: Immunosuppressed sta tus (Primary [...] of inpatient Gian Villatoro MD Work Phone: [id number] Comment on above: FAYE (acute kidney in jury) Start: 05-15-2022 End: 05-15-[address] GEORGE ALEXANDER Facility:[facility] Start: 05-11-2022 End: 05-11-[address] GEORGE ALEXANDER Facility:[facility] Start: 03-14-2022 ambulatory Comfort Rivera [facility] Work Phone: Pharmacy Outpatient RX Yanci Start: 03-14-2022 Patient encounter procedure Comfort Chinedu Rivera [facility] Work Phone: Pharmacy Outpatient RX Yanci Start: 06-14-2021 End: 06-14-2021 ambulatory Comfort Chinedu Rivera [facility] Work Phone: [facility] Start: 06-14-2021 Patient encounter procedure Comfort Chinedu Rivera [facility] Work Phone: [facility] Start: 01-20-2020 End: 01-27-2020 Patient encounter procedure PEPE CASE Facility:[facility] Start: 01-06-2020 End: 01-07-2020 Patient encounter procedure [facility] Start: 01-06-2020 End: 01-06-2020 Subsequent hospital visit by physician MASHA [facility] Start: 10-24-2019 End: 10-25-2019 [facility] Start: 10-24-2019 End: 10-24-2019 Subsequent hospital visit by physician [facility] Start: 08-27-2019 End: 08-28-2019 Patient encounter procedure [facility] Start: 08-27-2019 End: 08-27-2019 Subsequent hospital visit by physician MASHA [facility] Start: 08-08-2019 End: 08-09-2019 Patient encounter procedure ROB PATINO [facility] Start: 08-08-2019 End: 08-08-2019 Subsequent hospital visit by physician MASHA [facility] Start: 08-03-2019 End: 08-04-2019 [facility] Start: 08-03-2019 End: 08-03-2019 Subsequent hospital visit by physician MASHA [facility] Start: 08-01-2019 End: 08-02-2019 [facility] Start: 08-01-2019 End: 08-01-2019 Subsequent hospital visit by physician [facility] Start: 06-10-2019 End: 06-11-2019 Patient encounter procedure RENA GUDINO [facility] Start: 06-01-2019 End: 06-02-2019 [facility] Start: 01-14-2019 End: 01-15-2019 Patient encounter procedure RENA GUDINO [facility] Start: 11-17-2018 End: 11-17-2018 Patient encounter procedure Melania Pantojaman [facility] Pre Trans[facility] Office Comment on above: Social Work Follow-u p Start: 10-19-2018 End: 10-19-2018 [facility] Comment on [...] Start: 10-13-2018 End: 10-13-2018 Patient encounter procedure [facility] Pre Transplant Office Comment on above: Reschedule Outside Medical Allan rds Request Start: 10-12-2018 End: 10-12-2018 Patient encounter procedure Sophie Raeann [facility] Pre Transplant Office Comment on [...] Start: 10-05-2018 Patient encounter status Comfort Rivera [facility] Work Phone: [facility] Procedures Date Procedure Procedure Detail Performing [...] blood Crow Diaz MD Work Phone: Start: 1 End: 09-02-2023 Cytp slctv cell enhancement interpj [...] AURIS SCREEN BY PCR Carol Ann Capps WEB SITE ADMINISTRATOR-TYPO MACHINE OPERATOR Work Phone: Start: 08-28-2023 CBC AND [...] above: Performed By: #### C MP #### [facility] [address] [place] [address] Dr. Dwight Waters Start: 07-07-2022 Rmvl nfros tube req fluoro guidance Ryan Yepez MD Work Phone: Start: 06-27-2022 Ct abdomen & pelvis w/o contrast material Evan Byrd MD Work Phone: Start: 06-12-2022 Culture bct isol&prs mptv id isolate ea urine Steve S Yeison JOSH Work Phone: Start: 06-12-2022 EXTRA MICRO Steve S Nor i MBBS Work Phone: Start: 06-12-2022 Hemoglobin glycosyla rukhsana a1c Steve S Yeison JOSHBS Work Phone: Start: 06-12-2022 Hepatic function panel Yovani Orr MD Work Phone: Start: 06-12-2022 URINALYSIS REFLEX TO CULTURE Steve S Yeison LU Work Phone: Start: 05-20-2022 Urography antegrade rs&i [...] cat h prq new access rs&i Stephan Beard MD Start: 05-17-2022 Culture bct isol&prs mptv id isolate ea urine Nishant Gamez MD Work Phone: Start: 05-17-2022 Assay of magnesium Milton Bennett MD Work Phone: Start: 05-16-2022 Us trnsplnt kidney r eal time w/image docmtn Nishant Gamez MD Work Phone: Start: 05-16-2022 Creatinine blood Nishant Gamez MD Work Phone: Start: 05-16-2022 Assay of magnesium Milton eBnnett MD Work Phone: Start: 05-16-2022 Drug screen [...] recipient S/P liver trans plant Comfort Rivera [facility] Work Phone: Start: 04-08-2020 H/O: liver recipient Liver tra nsplant recipient Comfort Rivera [facility] Work Phone: Start: 01-06-2020 Potassium serum plasma/whole [...] renal transplant -donor kidney transplant recipient Comfort [facility] Work Phone: Start: 06-10-2019 HEMOGLOBIN AND HEMAT OCRIT, BLOOD ROB KASMANI Start: 06-01-2019 Blood count hemoglobin ROB KASMANI Start: 03-22-2019 Lipid 1996 panel - S fabricio or Plasma Comfort Rivera [facility] Work Phone: Start: 01-14-2019 Potassium serum plasma/whole [...] 10-12-2018 End: 10-12-2018 Antibody cytomegalovirus cmv Yovani Mejias Greendizer Work Phone: Start: 10-12-2018 End: 10-12-2018 Antibody dann-montes eb virus viral capsid vca Yovani Mejias Steek SAannie Work Phone: Start: 10-12-2018 End: 10-12-2018 Antibody herpes smplx type 1 Yovani Orr Work Phone: Start: 10-12-2018 End: 10-12-2018 Antibody rubeola Yovani Mejias Greendizer Work Phone: Start: 10-12-2018 End: 10-12-2018 Antibody varicella-zoster Yovani Mejias Greendizer Work Phone: Start: 10-12-2018 End: 10-12-2018 Assay of ethanol Yovani Mejias Steek SAannie Work Phone: Start: 10-12-2018 End: 10-12-2018 Assay of ferritin Yovani Orr Work Phone: Start: 10-12-2018 End: 10-12-2018 Assay of iron Yovani Mejias Steek SAannie Work Phone: Start: 10-12-2018 End: 10-12-2018 Assay of parathormone Yovani Mejias Steek SAannie Work Phone: Start: 10-12-2018 End: 10-12-2018 Assay of phosphatase alkaline Yovani Mejias Steek SAannie Work Phone: Start: 10-12-2018 End: 10-12-2018 Bilirubin total Yovani Orr Work Phone: Start: 10-12-2018 End: 10-12-2018 Calcium total Yovani Mejias Steek SAannie Work Phone: Start: 10-12-2018 End: 10-12-2018 CBC, EDIF, PLATELET Yovani RuziMobil Oto Servis Work Phone: Start: 10-12-2018 End: 10-12-2018 Creatinine blood Yovani Orr Work Phone: Start: 10-12-2018 End: 10-12-2018 Drug screening cannabinoids natural Yovani Mejias Greendizer Work Phone: Start: 10-12-2018 End: 10-12-2018 Hepatitis a antibody haab Yovani Mejias Greendizer Work Phone: Start: 10-12-2018 End: 10-12-2018 Hepatitis b core antibody hbcab total Yovani Mejias Greendizer Work Phone: Start: 10-12-2018 End: 10-12-2018 Hepatitis b surf antibody hbsab Yovani Mejias Greendizer Work Phone: Start: 10-12-2018 End: 10-12-2018 Hepatitis c antibody Yovani Mejias Greendizer Work Phone: Start: 10-12-2018 End: 10-12-2018 Iaad ia hepatitis b surface antigen Yovani Mejias Greendizer Work Phone: Start: 10-12-2018 End: 10-12-2018 Iaad ia hiv-1 ag w/hiv-1 & hiv-2 antbdy single Yovani RuizMobil Oto Servis Work Phone: Start: 10-12-2018 End: 10-12-2018 PSA screening Yovani Mejias Greendizer Work Phone: Start: 10-12-2018 End: 10-12-2018 Thromboplastin time partial plasma/whole blood Yovani Orr Work Phone: Start: 10-12-2018 End: 10-12-2018 Assay of ethanol Yovani Mejias Greendizer Work Phone: Start: 10-12-2018 End: 10-12-2018 Drug/substance definitive qual/quant nos 7/more Yovani RuizMobil Oto Servis Work Phone: Start: 10-12-2018 End: 10-12-2018 Protein total xcpt refractometry urine Yovani Orr Work Phone: Start: 10-12-2018 End: 10-12-2018 VOLUME MEASURED Yovani Orr Work Phone: H/O: liver recipient Liver repla viad by transplant Steve S Yeison MBBS Work [...] 08-31-2024 Screening for malignant neoplasm of lung [facility] Start: 06-17-2024 End: 06-17-2024 ambulatory [facility] Start: 06-17-2024 End: 06-17-2024 Patient encounter procedure [facility] Start: 03-22-2024 Fasting lipid profile LIPID SCREENING [facility] Start: 03-22-2024 Lipid panel [facility] Start: 01-15-2024 End: 01-15-2024 ambulatory [facility] Start: 01-15-2024 End: 01-15-2024 Patient encounter procedure [facility] Start: 12-08-2023 End: 09-07-2024 CT Chest WO contrast [facility] Work Phone: Start: 09-23-2023 End: 09-23-2023 ambulatory Infectious Diseases Care [facility] Start: 09-23-2023 End: 09-23-2023 Telemedicine consultation with patient 09/23/2023 4:00 PM EDT Telemedicine Infectious Diseases [facility] [address] [place] [address] Hakeem Alamo MD [address] [place] [address] Infectious Diseases Care [facility] Start: 09-15-2023 End: 09-10-2024 ITRACONAZOLE LEVEL [facility] Start: 08-25-2023 End: 08-25-2024 ALLOSCREEN RECIPIENT (POST TX PRA) ALLOSCREEN RECIPIENT (POST TX PRA) Lab Routine Kidney replaced by transplant Aftercare following organ transplant Immunosuppressed status High risk medication use Other general symptoms and signs Abnormal blood chemistry Expected: 08/25/2023, Expires: 08/25/2024 [facility] Comment on above: Expected: 08/25/2023, Expires: Start: 07-31-2023 Influenza vaccination [facility] Start: 06-12-2023 End: 06-12-2023 Patient encounter procedure 06/12/2023 Office Visit Transplant Surgery Steve Latham MBBS [address] [place] [address] [facility] Start: 03-11-2023 End: 03-11-2023 Telemedicine consultation with patient 03/11/2023 Telemedicine Urology Ryan Yepez MD [address] [facility] [address] [place] [address] [facility] [place] Start: 01-16-2023 End: 01-16-2023 Patient encounter procedure 01/16/2023 Office Visit Transplant Surgery [facility] Start: 10-31-2022 End: 10-31-2022 Patient encounter procedure 10/31/2022 Office Visit Transplant Surgery Steve Latham MBBS [address] [place] [address] [facility] Start: 09-10-2022 End: 09-10-2023 PSA screening PSA, SCREENING Lab Routine BPH with obstruction/lower urinary tract symptoms Encounter for screening for malignant neoplasm of prostate Expected: 09/10/2022 (Approximate), Expires: 09/10/2023 [facility] Comment on above: Expected: 09/10/2022 (Approximate), Expi res: 09/10/2023 Start: 08-11-2022 End: 08-11-2022 Patient encounter procedure 08/11/2022 Office Visit UrologRyan Batista MD [address] [place] [address] [address] [place] [phone] [facility] [place] Start: 07-31-2022 Influenza vaccination [facility] Start: 07-07-2022 End: 07-07-2022 Patient encounter procedure 07/07/2022 Office Visit Ryan Webster MD [address] [place] [address] [address] [place] [address] Urolog Eye [facility] [place] Start: 07-07-2022 End: 07-07-2023 FLUORO IMAGING FOR UROLOGY [facility] Comment on above: Expected: 07/07/2022, Expires: 3 1 Occurrences starti ng 07/07/2022 until 07/07/2022 Start: 06-27-2022 End: 06-27-2022 Patient encounter procedure 06/27/2022 Office Visit Ryan Webster MD [address] [place] [address] [address] [place] [phone] [facility] [place] Start: 06-27-2022 End: 06-27-2023 Basic metabolic 2000 panel - Serum or Plasma BASIC METABOLIC PANEL Lab Routine Other hydronephrosis Expected: 06/27/2022, Expires: 06/27/2023 [facility] Comment on above: Expected: 06/27/2022, Expires: 3 Start: 06-27-2022 End: 06-27-2022 Patient encounter procedure 06/27/2022 Appointment Computerized Tomography Scan Ryan Yepez MD [address] [facility] [address] [place] [address] Department of Radiology Start: 06-15-2022 End: 05-16-2023 CT Abdomen and Pelvis WO contrast CT ABDOMEN/PELVIS WITHOUT CONTRAST Imaging Routine FAYE (acute kidney injury) Expected: 06/15/2022 (Approximate), Expires: 05/16/2023 [facility] Work Phone: Comment on above: Expected: 06/15/2022 (Approximate), Expi res: 05/16/2023 Start: 06-12-2022 End: 06-12-2022 Patient encounter procedure 06/12/2022 Office Visit Transplant Surgery Steve Latham MBBS [address] [place] [address] [facility] Start: 06-11-2022 End: 06-11-2023 BK VIRUS DNA QN, PCR, PLASMA BK VIRUS DNA QN, PCR, PLASMA Lab Routine Kidney replaced by transplant Liver replaced by transplant Abnormal blood chemistry Expected: 06/11/2022, Expires: 06/11/2023 [facility] Comment on above: Expected: 06/11/2022, Expires: Start: 06-04-2022 End: 06-04-2022 Patient encounter procedure 06/04/2022 Office Visit [facility]ventional [facility]iology [facility] Start: 10-18-2021 End: 10-18-2021 Patient encounter procedure 10/18/2021 Office Visit Transplant Surgery Steve Latham MBBS [address] [place] [address] [facility] Start: 07-31-2021 Influenza vaccination INFLUENZA VACCINE (#1) [facility] Start: 07-26-2021 End: 07-26-2021 Patient encounter procedure 07/26/2021 Office Visit Transplant Surgery [facility] Start: 2021 Prostate specific antigen measurement [facility] Start: 2021 Screening for malignant neoplasm of lung LUNG CANCER SCREENING [facility] Start: 2021 Zoster vaccine hzv live for subcutaneous use ZOSTER (SHINGLES) VACCINE (1 of 2) [facility] Start: 09-20-2020 Colonoscopy COLORECTAL CANCER SCREENING DISCUSSION [facility] Start: 09-20-2020 Screening for malignant neoplasm of colon [facility] Start: 07-31-2019 Influenza vaccination Flu vaccine (#1) [place] Start: 05-22-2019 Annual Wellness Visit (AWV) Annual Wellness Visit (AWV) [place] Start: 04-18-2019 End: 10-19-2019 Ultrasonography of abdomen US ABDOMEN RUQ/LIVER/GB Routine Cirrhosis of liver without ascites, unspecified hepatic cirrhosis type Expected: 04/18/2019 (Approximate), Expires: 10/19/2019 [facility] Work Phone: Comment on above: Expected: 04/18/2019 (Approximate), Expi res: 10/19/2019 Start: 01-25-2019 End: 01-25-2019 Ambulatory 01/25/2019 Office Visit Gastroenterology Christin Elizabeth, WEB SITE ADMINISTRATOR-BALL MILL OPERATOR [address] [place] [address] Division of Gastroenterology and Hepatology Gavin Start: 11-19-2018 End: 11-19-2018 Ambulatory 11/19/2018 Appointment [facility] Start: 11-19-2018 End: 11-19-2018 [facility]ulatory [facility] Start: 10-19-2018 End: 10-19-2018 Ambulatory Ultrasound Jakob Start: 10-12-2018 End: 10-12-2019 Hemoglobin A1c/Hemoglobin.total mass fraction (Bld) HEMOGLOBIN A1C Routine Alcoholic cirrhosis, unspecified whether ascites present Pre-transplant evaluation for liver transplant Expected: 10/12/2018, Expires: 10/12/2019 [facility] Work Phone: Comment on above: Expected: 10/12/2018, Expires: 9 Start: 10-12-2018 End: 10-12-2019 TYPE AND SCREEN - NOT FOR TRANSFUSION TYPE AND SCREEN - NOT FOR TRANSFUSION Routine Alcoholic cirrhosis, unspecified whether ascites present Pre-transplant evaluation for liver transplant Expected: 10/12/2018, Expires: 10/12/2019 [facility] Work Phone: Comment on above: Expected: 10/12/2018, Expires: 9 Start: 07-31-2018 Influenza vaccination INFLUENZA VACCINE (#1) [facility] Work Phone: Start: 2011 Fasting lipid profile LIPID SCREENING [facility] Work Phone: Start: 2011 Lipid screen Lipid screen [place] Start: 1990 DTaP/Tdap/Td vaccine (1 - Tdap) DTaP/Tdap/Td vaccine (1 - Tdap) [place] Start: 1990 Hepatitis B Vaccine (1 of 3 - Risk Recombivax 3-dose series) Hepatitis B Vaccine (1 of 3 - Risk Recombivax 3-dose series) [place] Start: 1990 Third diphtheria, tetanus and acellular pertussis (DTaP) vaccination [facility] Start: 1990 Zoster vaccine hzv live for subcutaneous use ZOSTER (SHINGLES) VACCINE (1 of 2) [facility] Start: 1990 [facility] Start: 1989 Tetanus vaccination TETANUS [facility] Start: 1986 HIV screen HIV screen [place] Start: 02-17-1984 HIV screening HIV SCREENING DISCUSSION [facility] Work Phone: Start: 1983 COVID-19 VACCINE (1) COVID-19 VACCINE (1) [facility] Start: 1982 DTaP/Tdap/Td vaccine (1 - Tdap) DTaP/Tdap/Td vaccine (1 - Tdap) [place] Start: 1977 Pneumococcal 0-64 years Vaccine (1 of 3 - PCV13) Pneumococcal 0-64 years Vaccine (1 of 3 - PCV13) [place] Start: 1977 PNEUMOCOCCAL VACCINE SERIES (1 - PCV) PNEUMOCOCCAL VACCINE SERIES (1 - PCV) [facility] Start: 1977 [facility] Start: 02-17-1976 COVID-19 VACCINE (#1) COVID-19 VACCINE (#1) [facility] Start: 02-17-1976 [facility] Start: 1971 COVID-19 VACCINE (#1) COVID-19 VACCINE (#1) [facility] Start: 1971 Hepatitis B vaccination HEP B VACCINE (1 of 3 - 3-dose series) [facility] Start: 1971 Tetanus vaccination [facility] BK VIRUS DNA QN, PCR , PLASMA BK VIRUS DNA QN, PCR, PLASMA Lab Routine Kidney replaced by transplant Liver replaced by transplant Abnormal blood chemistry 06/12/2022 3:38 PM EDT [facility] CALCULI, URINARY (KIDNEY STONE) CALCULI, URINARY (KIDNEY STONE) Fluids Routine 05/19/2022 8:16 AM EDT [facility] Work Phone: CANNABINOIDS, QUANT (URINE)THC CONFIRMATION CANNABINOIDS, QUANT (URINE)THC CONFIRMATION Routine Alcoholic cirrhosis, unspecified whether ascites present ESRD (end stage renal disease) on dialysis Pre-transplant evaluation for liver transplant 10/12/2018 12:57 PM EST [facility] Work Phone: End: 09-10-2024 CHEM 6 (LYTES, BUN CREA) [facility] EBV VCA IGG AB EBV VCA IGG AB R outine Alcoholic cirrhosis, unspecified whether ascites present ESRD (end stage renal disease) on dialysis Pre-transplant evaluation for liver transplant 10/12/2018 12:57 PM [facility] Work Phone: Fungus identified in Unspecified specimen by Culture [facility] HLA TYPING (SOLID ORGAN) HLA TYPING (SOLID ORGAN) Routine Alcoholic cirrhosis, unspecified whether ascites present ESRD (end stage renal disease) on dialysis Pre-transplant evaluation for liver transplant 10/12/2018 12:57 PM [facility] Work Phone: HSV 1 AND 2 IGG ANTIBODY HSV 1 AND 2 IGG ANTIBODY Routine Alcoholic cirrhosis, unspecified whether ascites present ESRD (end stage renal disease) on dialysis Pre-transplant evaluation for liver transplant 10/12/2018 12:57 PM [facility] Work Phone: 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 specific culture [facility] PLACEMENT NEPHROSTOM Y CATHETER PERCUTANEOUS W/ IMAGE GUIDANCE PLACEMENT NEPHROSTOMY CATHETER PERCUTANEOUS W/ IMAGE GUIDANCE Imaging Routine Hydronephrosis due to obstruction of ureteral orifice FAYE (acute kidney injury) 05/17/2022 11:08 AM EDT [facility] TX POST VOID RESIDUAL TX POST VO ID RESIDUAL TX - OFFICE PERFORMED Routine BPH with obstruction/lower urinary tract symptoms Ordered: 09/10/2022 [facility] Comment on above: Ordered: 09/10/2022 PTH INTACT PTH INTACT Routi ne Alcoholic cirrhosis, unspecified whether ascites present ESRD (end stage renal disease) on dialysis Pre-transplant evaluation for liver transplant 10/12/2018 12:57 PM [facility] Work Phone: RUBEOLA IGG AB (IMMU NE STATUS) RUBEOLA IGG AB (IMMUNE STATUS) Routine Alcoholic cirrhosis, unspecified whether ascites present ESRD (end stage renal disease) on dialysis Pre-transplant evaluation for liver transplant 10/12/2018 12:57 PM [facility] Work Phone: End: 09-10-2024 TACROLIMUS LEVEL, TROUGH (PRE DRUG LEVEL) [facility] VARICELLA IGG AB (IM M STATUS) VARICELLA IGG AB (IMM STATUS) Routine Alcoholic cirrhosis, unspecified whether ascites present ESRD (end stage renal disease) on dialysis Pre-transplant evaluation for liver transplant 10/12/2018 12:57 PM EST [facility] Work Phone: Payers Date Payer Category Payer Unknown [id number] 2019 Unknown [facility] [id number] 2019-Present [id number] 2018 Medicaid MEDICAID [facility] DEPT OF JOB xxxxxxxxxxxx 2018-Present [phone] [address] [place] [address] xxxxxxxxxxxx [id number] 2018 Medicaid MEDICAID MEDICAI D [id number] 2018-Present [address] [place] [address] [id number] [id number] 2018 Medicaid [id number] [id number] 2018 Medicare MEDICARE MEDICAR E PART A AND B xxxxxxxxxxx 2018-Present [phone] [address] [address] [place] [address] xxxxxxxxxxx [id number] [id number] 2018 Medicare [id number] 2018 Medicare MEDICARE MEDICAR E A AND B [id number] 2018-Present [address] [place] [address] [id number] .[id number] 2018 Medicare [id number] [id number] .[id number] 1971 Unknown [id number] 2.16.840.1.679096.3.579.2.173 1971 Unknown [id number] 2.16.840.1.263267.3.579.2.173 1971 Unknown [id number] 2.16.840.1.429899.3.579.2.173 1971 Unknown [id number] 2.16.840.1.134801.3.579.2.173 1971 Unknown [id number] 2.16.840.1.086339.3.579.2.173 1971 Unknown [id number] 2.16.840.1.385406.3.579.2.173 1971 Unknown [id number] 2.16.840.1.335784.3.579.2.173 1971 Unknown [id number] 2.16.840.1.635127.3.579.2.173 1971 Unknown [id number] 2.16.840.1.038275.3.579.2.647 1971 Unknown [id number] 2.16.840.1.424169.3.579.2.593 1971 Unknown [id number] 2.16.840.1.624364.3.579.2.593 1971 Unknown [id number] 2.16.840.1.605843.3.579.2.593 1971 Unknown [id number] 2.16.840.1.863681.3.579.2.593 1971 Unknown [id number] 2.16.840.1.825122.3.579.2.593 1971 Unknown [id number] 2.16.840.1.877251.3.579.2.593 1971 Unknown [id number] 2.16.840.1.726945.3.579.2.593 1971 Unknown [id number] 2.16.840.1.852060.3.579.2.593 1971 Unknown [id number] 2.16.840.1.814795.3.579.2.593 1971 Unknown [id number] 2.16.840.1.887782.3.579.2.593 1971 Unknown [id number] 2.16.840.1.019118.3.579.2.593 1971 Unknown [id number] 2.16.840.1.389396.3.579.2.593 1971 Unknown [id number] 2.16.840.1.971276.3.579.2.593 1971 Unknown [id number] 2.16.840.1.985121.3.579.2.593 1971 Unknown [id number] 2.16.840.1.064799.3.579.2.593 1971 Unknown [id number] 2.16.840.1.398301.3.579.2.594 1971 Unknown [id number] 2.16.840.1.440699.3.579.2.594 1971 Unknown [id number] 2.16.840.1.477202.3.579.2.594 1971 Unknown [id number] 2.16.840.1.462296.3.579.2.594 1971 Unknown [id number] 2.16.840.1.434114.3.579.2.594 1971 Unknown [id number] 2.16.840.1.426720.3.579.2.594 1971 Unknown [id number] 2.16.840.1.603638.3.579.2.594 1971 Unknown [id number] 2.16.840.1.721087.3.579.2.594 1971 Unknown [id number] 2.16.840.1.884838.3.579.2.594 1971 Unknown [id number] 2.16.840.1.807163.3.579.2.125 9 1959 Medicaid [id number] 1958 Medicare [id number] Social History Date Type Detail Facility Start: 07-19-2018 End: 10-19-2018 Tobacco smoking status NHIS Former smoker [facility] Start: 07-19-1988 End: 05-14-2018 History of tobacco use Current smoker [facility] Work Phone: Start: 07-19-1988 End: 05-14-2018 History of tobacco use Cigarette Smoker [facility] Work Phone: Start: 10-19-2018 End: 09-26-2023 Cigarettes smoked current (pack per day) - Reported [facility] Work Phone: End: 07-19-1994 History of tobacco use Chews Tobacco [facility] Work Phone: Start: 1970 Sex Assigned At Not on file [facility] Work Phone: Start: 11-03-2018 Alcohol intake 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) [place] Start: 06-22-2018 Alcohol Comment Hx of alcoholism [place], [place] Start: 11-03-2018 End: 09-26-2023 Alcohol intake No [place] Start: 07-19-2018 Tobacco use and exposure Former user [facility] Start: 09-06-2020 End: 09-26-2023 Alcohol intake Ex-drinker (finding) [facility] Start: 07-19-2018 Alcohol Comment stopped 05/14/2018 [facility] Start: 05-05-2022 End: 01-16-2023 Exposure to SARS-CoV-2 (event) Not sure [facility] Start: 07-07-2018 Gender identity Identifies as male gender (finding) [facility] Start: 01-16-2022 Sexual orientation Heterosexual (scooby kc) [facility] Medical Equipment Procedure Code Equipment Code Equipment Original Text Equipment Identifier Dates [id number] Start: 05-23-2020 [id number] Start: 04-12-2020 [id number], [id number] FDA Start: 05-17-2022 Comment on above: Description: Implant time-out completed by intra-procedural staff including this RN, geotechnical intern, and performing physician. The following was completed. [...] ; Prograf 0.2 MG Contact Info: Specialty ([place]) [phone] [facility] [phone] [facility] [phone] [facility] [phone] Bedside Delivery ([facility]) [phone] [facility] OUTREACH ADVANCED: Call Information: Date and Time of Contact: 10/23/2023 2:00 PM Method of Contact: By Phone Contact Type: Prescriptions Contactor: [facility] OP Contactee: Patient Contact Outcome: Left message and Call back later Shipping/Pickup: Medication Name: Mycophenolate 360mg and Prograf 0.2mg Contact Info: Specialty ([place]) [phone] [facility] [phone] [facility] [phone] [facility] [phone] Bedside Delivery ([facility]) [phone] documented in this encounter [facility]2023 Miscellaneous Notes Pt discharged home [...] the oxygen during the night. pt will burr picker his oxygen from [employer], 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 This [...] Patient seen ambulating in the velazquez with ANALYTIC PROGRAMMER. Patient was mildly short of breath on [...] & HR 114. Messaged Mainor Loomis, via [employer] secure chat, Temp 100.8. His tylenol order [...] short period of time. 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 Episode of [...] Critical Care Medicine Message Mainor Loomis, via [employer] secure chat, Good evening, just an FYI, [...] short period of time. 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 This morning, [...] [address] Loera here also (box lidder) Dr. Diaz aware of pt's increased oxygen needs (arrived here on 4L n/c and sats only 91%) on hi flow oxygen at 7L is 94%..... Dr. iDaz asked that pt be put on non [...] Medicine-Pediatrics, PGY-2 Mr. Styles was admitted to [address] [place] [address]. On admission to [facility], from home a [...] station when available. documented in this encounter [facility] 09-11-2023 History of Present illness Narrative Provided follow-up emotional and spiritual support. Patient shared about rosemary of discharge and looking forward to seeing family Environmental Monitoring Specialist provided: - Supportive presence - Active listening - Validation of feelings/emotions Patient encouraged to request a proofer as needed. Chaplains are available in-house 24 hours a day and 7 days a week. For urgent matters in [facility], please page [phone]. If the request is not urgent, please enter a consult. Consults are responded to within 24 hours. Senior Staff Environmental Monitoring Specialist Angie Singh Mdiv, [facility] Kirk [phone] [email or web address] 22/06 On-call Kirk: [phone] 22/06 Pager ,[facility], and Brock Maciel Pager [phone] 09/11/23 8544 Clinical Encounter Type Visited With Patient Visit Type Follow-up Pastoral Time Spent 15 min Referral Other (See Comment) (rounding) Spiritual Assessment Spiritual Observation Spirituality helpful Emotional Observation Coping well Hope Observation Specific hope focus Support Observation By Family Interventions Provided Active listening;Supportive presence Facilitated Verbalization of feelings Explored Expectations Legal Mediator Education Legal Mediator Service Available Yes Educated Patient Plan of Care Continue Visiting PRN Images from the original note were not included. [facility] Note: Non-Verbal Med Rec [facility] received the following discharge prescription(s): Total cost is $0. I have reviewed the Discharge Rx Reconciliation Report. The discharge prescription(s) will be delivered to the patient on 09/11/2023. Dimitrios Gurrola RPh,PharmD Specialty ([place]) [phone] [facility] [phone] [facility] Bedside Delivery [phone] [facility] [phone] [facility] Bedside Delivery [phone] [place] [phone] [facility] Bedside Delivery [phone] [place] [phone] [place] [phone] Internal Medicine Daily Progress Note Patient: George Styles, 1970, [id number] Physician: Evan Kelly MD, PGY-1, TM1 service Subjective/Interval History: Patient continues to require oxygen overnight for desaturations. With insurance limitations, only accepting agency to provide home oxygen backed out. After calling them to discuss, Lynn stated she would be willing to have patient drive to their facility to burr picker supplies, however they close at 5pm. 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 His [place] kidney disease was noted to be presumed [...] losartan 50mg BID CAD: non-obstructive CAD on [facility] 2018. - continue home aspirin [...] 5.05 (H) 11/19/2018 Kevin Sage MD, SERA Supervisor Finishing Department of Clinical Medicine [facility] Images from the original note were not included. Final Discharge Planning and Transportation Final Discharge Planning Discharge Disposition: Home Services at Discharge: Outpatient clinical services (ie: lab draws, transfusions, injectables) (Home Oxygen by [facility]) Selected Continued Care - Admitted Since 08/28/2023 Durable Medical Equipment Coordination complete. Service Provider Selected Services Address Phone Fax Patient Preferred [employer] Durable Medical Equipment [address] [facility] [address] Internal Comment last updated by Lora Alexander RN 09/10/2023 1334 Correct contact information: [employer] [address] [place] [address] [place] [address] animal researcher- you do not need to call at discharge, I already notified the company. Addendum [phone] [facility] notified this CM they are out of patient's insurance area and will not be able to service this patient at time of discharge. Provider notified. Addendum [phone] Dr eKlly called [facility] spoke to Lynn and she said they are willing to accept patient if the patient would drive to the [place] office and burr picker the supplies. Patient is willing to do [...] Lora Colón RN, MSN, CCM, CMCN Clinical Oxidation Operator- [facility] Transplant #[phone] Department of Pharmacy Transplant Note Patient: George [...] dose adjustment Name: Matt Kramer RPh,Frankie Phone: [phone] Date/Time: 09/10/2023 11:33 AM This CM sent referral via [employer]idin for O2 concentrator to [facility] Start date today Timer set for [address] [facility] [employer] Addendum [phone] One accepting company reserved in [address] [place] [address] Lora Colón RN, MSN, CCM, CMCN Clinical Oxidation Operator- [facility] Transplant #[phone] NUTRITION FOLLOW-UP Nutrition Plan of Care: 1. Continue current diet order. 2. No oral supplements warranted at this time. 3. Monitor for significant weight changes. Monitor GI, skin integrity. 4. Monitor and encourage po intakes with goal of average po being 75-100%. 5. educational technologist to follow. ___ Met with patient today [...] time. Will continue to monitor. RHIANNON [place]R Pager:[phone] Transplant Infectious Disease (Team 3) Progress Note [...] sign off. Please Epic message or page [phone] with questions. 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 His [place] kidney disease was noted to be presumed [...] losartan 50mg BID CAD: non-obstructive CAD on [facility] 2019. - continue home aspirin 81mg daily, holding atorvastatin 20mg daily Gout: continue home allopurinol 200mg daily BPH: continue home flomax 0.4mg daily DVT PPX: SQH Code Status: Full Code Disposition: Pending clinical course. Anticipate eventual discharge home. Discussed with team and attending, Kvein Sage MD, on rounds. Signed, Evan Kelly [...] to follow. Please Epic message or page [phone] with questions. 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 His [place] kidney disease was noted to be presumed [...] losartan 50mg BID CAD: non-obstructive CAD on [facility] 2018. 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 His [place] kidney disease was noted to be presumed [...] losartan 50mg BID CAD: non-obstructive CAD on [facility] 2018. - continue home aspirin [...] 5.05 (H) 11/19/2018 Kevin Sage MD, SERA Supervisor Finishing Department of Clinical Medicine [facility] Transplant Infectious Disease (Team [...] to follow. Please Epic message or page [phone] with questions. Ann Marie Haskins MD PGY-4, [...] he continues to improve. Please message via [employer] secure chat or page with any questions or concerns. Evan White DO Supervisor Finishing Department Division of Infectious Disease Transplant Infectious Disease [...] to follow. Please Epic message or page [phone] with questions. Evan White DO Transplant Infectious Diseases Images from the original note were not included. Pulmonary/Critical Care Medicine Daily Progress Note Reason for Consultation: bronch for infectious workup Requesting Physician: Dr. Sage CURRENT HOSPITALIZATION: Admit Date: 08/28/2023 [facility] LOS: 9 days Impression 1. Acute [...] and interpreted reviewed the radiographic data in IHIS/[employer]. 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 His [place] kidney disease was noted to be presumed [...] losartan 50mg BID CAD: non-obstructive CAD on [facility] 2018. - continue home aspirin [...] 5.05 (H) 11/19/2018 Kevin Sage MD, MADISONN Supervisor Finishing Department of Clinical Medicine [facility] Images from the original note were not included. Pulmonary/Critical Care Medicine Daily Progress Note Reason for Consultation: bronch for infectious workup Requesting Physician: Dr. Sage CURRENT HOSPITALIZATION: Admit Date: 08/28/2023 [facility] LOS: 8 days Impression [...] We will continue to follow along with you Crow Diaz MD Pulmonary and Critical Care [...] and interpreted reviewed the radiographic data in [facility]IS[facility]. Acute Occupational Therapy Evaluation Prior to [...] Assessment: Transfer Assessment: Sit to Stand Transfer [place] Level: Sit->Stand: independent Skilled Intervention/Details: Sit->Stand: x1 from EOB, x1 from toilet Stand to Sit Transfer [place] Level: Stand->Sit: independent Skilled Intervention/Details: Stand->Sit: x1 to toilet, x1 to EOB Functional Mobility: Functional Mobility [place] Level: Functional Mobility/Gait: independent Ambulation Distance (Feet): 20 Skilled Intervention/Details - Functional Mobility/Gait: pt performed functional mobility to/from RR w/ no overt LOB Outcome Score(s): [facility] Daily Activity Inpatient Short Form Putting on/Taking Off Lower Body Clothin - A Little Assistance Bathin - A Little Assistance Toiletin - A Little Assistance Putting on/Taking Off Upper Body Clothin - No Assistance Groomin - No Assistance Eatin - No Assistance [facility] Activity Raw Score: 21 [facility] Activity Functional Limitation/Modifier: 32.79% Currently Impaired in [...] Acute Physical Therapy Evaluation Prior to Admission [facility] score(s): PRIOR LEVEL AM-PAC Mobility Raw [...] Intact Mobility Assessment: Supine to Sit Mobility [place] Level: Supine->Sit: modified independence Bed Features/Set-up: Supine->Sit: Head of bed elevated Sit to Supine Mobility [place] Level: Sit->Supine: not tested Balance: Sitting Balance [...] environment. Transfer Assessment: Sit to Stand Transfer [place] Level: Sit->Stand: independent Skilled Intervention/Details: Sit->Stand: From EOB x 2 without difficulty. Stand to Sit Transfer [place] Level: Stand->Sit: independent Assistive Device: Stand->Sit: armed chair Skilled Rationale: Verbal cues, Positioning Gait/Functional Mobility: Gait Assessment [place] Level: Gait: stand-by assist Assistive Device: Gait: rollator Ambulation Distance (Feet): 400 Gait Deviations Identified: decreased grace, decreased gait speed Gait Skilled Rationale: verbal, upright posture, increase step length, increase foot clearance Skilled Intervention/Details - Gait: Reasonable foot clearnce without loss of balance but endorsing dyspnea as 6-7/10. 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 His [place] kidney disease was noted to be presumed [...] losartan 50mg BID CAD: non-obstructive CAD on [facility] 2018. - continue home aspirin [...] 5.05 (H) 11/19/2018 Kevin Sage MD, SERA Supervisor Finishing Department of Clinical Medicine [facility] Transplant Infectious Disease (Team [...] to follow. Please Epic message or page [phone] with questions. Evan White DO Transplant Infectious Diseases Images from the original note were not included. 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 His [place] kidney disease was noted to be presumed [...] losartan 50mg BID CAD: non-obstructive CAD on [facility] 2019. - continue home aspirin [...] P 450 system Kevin Sage MD, SERA Supervisor Finishing Department of Clinical Medicine [facility] ERT Note: ERT called [...] MD, PhD Internal Medicine and Pediatrics PGY-3 [facility] Brief plan of care update: Called to [...] MD, PhD Internal Medicine and Pediatrics PGY-3 [facility] Transplant Infectious Disease (Team 3) Progress Note [...] to follow. Please Epic message or page [phone] with questions. 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 His [place] kidney disease was noted to be presumed [...] 2/2 renal function CAD: non-obstructive CAD on [facility] 2018. 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 His [place] kidney disease was noted to be presumed [...] 2/2 renal function CAD: non-obstructive CAD on [facility] 2018. - continue home aspirin [...] 5.05 (H) 11/19/2018 Kevin Sage MD, SERA Supervisor Finishing Department of Clinical Medicine [facility] Comprehensive Transplant [...] Lora Colón RN, MSN, CCM, CMCN Clinical Oxidation Operator- [facility] Transplant #[phone] Made introductory visit with patient. Provided emotional and spiritual support. Patient shared about: - Source of Rosemary: Camping/Fishing/Family - Spirituality/Nondenominational Affiliation: raised Sabianism - Family Support/history - Experience with illness/hospital course - Hopes for healing/future Environmental Monitoring Specialist provided: - Supportive presence - Active listening - Validation of feelings/emotions - Pledged prayer Patient encouraged to request a proofer as needed. Chaplains are available in-house 24 hours a day and 7 days a week. For urgent matters in [facility], please page [phone]. If the request is not urgent, please enter a consult. Consults are responded to within 24 hours. Senior Staff Environmental Monitoring Specialist Angie Singh Mdiv, [facility] Kirk [phone] [email or web address] 22/06 On-call [place]: [phone] 22/06 Pager ,BS, and Brock Maciel Pager [phone] 09/02/23 1117 Clinical Encounter Type Visited With Patient Visit Type Introduction Pastoral Time Spent 15 min Referral Other (See Comment) (rounding) Spiritual Assessment Spiritual Observation Spirituality helpful Emotional Observation Coping well Hope Observation Specific hope focus Support Observation By Family Interventions Provided Active listening;Supportive presence Facilitated Verbalization of feelings Explored Expectations Legal Mediator Education Legal Mediator Service Available Yes Educated Patient Outcomes Patient Outcomes Reduced distress Plan of Care Continue Visiting PRN NUTRITION RISK SCREENING NOTE Nutrition Plan of Care: 1. Continue current diet order. 2. No oral supplements warranted at this time. 3. Monitor for significant weight changes. Monitor GI and skin integrity. 4. Monitor and encourage po intakes with goal of average po being 100%. 5. educational technologist to follow. George Styles is a 53 y.o. 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 His [place] kidney disease was noted to be presumed hepatorenal syndrome. His post-transplant course was noteworthy for nephrostomy tube (05/17/2022-09/10/2022) due to concern for ureteral stone. He presents as a direct admission for fever, cough, for infectious workup. Pt unavailable and information obtained via chart review Metal Fitter Screening Pt's appetite is good. Pt with [...] with meds Food Allergies reviewed:Shellfish Cultural or Nondenominational Restrictions/Preferences: None GI: Last Bowel Movement: 09/01/23 [...] time. Will continue to monitor. 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 His [place] kidney disease was noted to be presumed [...] 2/2 renal function CAD: non-obstructive CAD on [facility] 2018. - continue home aspirin [...] as outlined above. Kevin Sage MD Pager [phone] Summary: Pharmacy Med Rec Department of Pharmacy [...] 0 Provider: Zuly Bruno NP Pharmacy: [facility] [place] Other Comments: Patient reported his Last Home Dose of mycophenolate & tacrolimus was on 08/28/23 at 0900. Patient reported he was taking Bactrim and benzonatate for fevers and a cough he was having. Please feel free to contact me with any further questions. Name: Heidy Chatman Phone #: [phone] Date/Time: 09/01/2023 2:01 PM Time Spent: 15 minutes Associated attestation - Matt Kramer RPh,PharmD - 09/01/2023 2:28 PM EDT Department of Pharmacy Admission Medication Reconciliation Note Patient: George Styles Room/Bed: 1062/A I have reviewed the home medication list with the Pot Firer. All changes to the home medication list have been updated in IHIS. Updated CORE LAYING MACHINE OPERATOR Med List: Prior to Admission Medications Prescriptions [...] questions. Name: Matt Kramer RPh,PharmD Phone #: [phone] Date/Time: 09/01/2023 2:28 PM Transplant Infectious Disease [...] crypto antigen, EBV PCR -follow pending histo, [id number] labs These recommendations were discussed with the primary team. Transplant ID (Team 3) will continue to follow. Please Epic message or page [phone] with questions. 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 His [place] kidney disease was noted to be presumed [...] 2/2 renal function CAD: non-obstructive CAD on [facility] 2018. - continue home aspirin [...] 5.05 (H) 11/19/2018 Kevin Sage MD, SERA Supervisor Finishing Department of Clinical Medicine [facility] Discharge Planning Patient Assessment [...] Yes Name and Contact information: Gian Styles ([phone]) Reviewed and Updated in Demographics? : Yes Outpatient Providers Does patient have a primary care physician? : Yes When was the patient's last PCP visit?: > 30 days Does the patient follow any specialists?: No Reviewed and updated Care Team?: Yes Patient Care Team: Zuly Bruno CNP as PCP - General Environment/Caregivers Is the patient from a facility or penitentiary?: No Patient lives with: Alone Living Environment: [...] patient on Anticoagulation? : No [id number] [place] [address] - [address] [facility] [address] [facility] [address] [employer] Does the patient or dealer compliance representative express financial concerns? : No Employed?: Disabled Coping/Stress Concerns about patient s coping and stress?: No Concerns about patient s caregiver s coping and stress?: No Values and Beliefs Cultural or anabaptist practices that may impact discharge planning and/or [...] Plan 1. Identified self and role as Oxidation Operator. 2. Confirmed and updated demographics and treatment team. 3. Oxidation Operator will continue to follow with medical team/pt for any other additional discharge needs. Kasandra DON RN [facility] [phone] *Please note I am float and work Thursday and Thursday every other week. Please call [phone] for assist in my absence. Internal Medicine Daily Progress Note Patient: George Styles, 1970, [id number] Physician: Evan Kelly MD, PGY-1, TM1 service [...] 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 His [place] kidney disease was noted to be presumed [...] 2/2 renal function CAD: non-obstructive CAD on [facility] 2018. 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 His [place] kidney disease was noted to be presumed [...] losartan 50mg BID CAD: non-obstructive CAD on [facility] 2018. - continue home aspirin 81mg daily, atorvastatin 20mg daily Gout: continue home allopurinol 200mg daily BPH: continue home flomax 0.4mg daily DVT PPX: SQH Code Status: Full Code Disposition: Pending clinical course. Anticipate eventual discharge home. Discussed with team and attending, Kevin Sage MD, on rounds. Signed, Laurel Serrano MD, PhD documented in this encounter [facility] 09-10-2023 Hospital Discharge instructions Laurel Serrano [...] a sleep doctor. You will need to burr picker the oxygen concentrator when you leave the [...] on healthy foods. documented in this encounter [facility] 09-01-2023 Consult note Associated Order (s): IP CONSULT TO PULMONOLOGY Pulmonary Medicine Inpatient Consultation Reason for Consultation: bronch for infectious workup Requesting Physician: Dr. Sage Pulmonary Attending Physician: Dr. Diaz CURRENT HOSPITALIZATION: Admit Date: 08/28/2023 [facility] Hospital LOS: 4 days Impression/Recommendations: [...] Recommendations: - Plan to bronch tomorrow morning. NPO@[place], order placed - would repeat HIV, last [...] short period of time. 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 Other histories as documented in the [...] had any ill contacts. He traveled to [place] to family [facility] in May. REVIEW OF SYSTEMS A [...] GUIDANCE 05/17/2022 Surgeon: Enzo Heart DO; Location: [facility] INTERVENTIONAL RADIOLOGY (VIR) LIVER TRANSPLANT, ORTHOTOPIC N/A 04/12/2020 Laterality: N/A; Surgeon: LU Palma; Location: [facility] SAME DAY SURGERY MAIN OR KIDNEY TRANSPLANT W/O [place] NEPHRECTOMY N/A 04/12/2020 Laterality: N/A; Surgeon: LU Palma; Location: [facility] SAME DAY SURGERY MAIN OR OTHER [...] Alamo MD I can be reached via [employer] secure message (preferred) or Pager #[phone] documented in this encounter [facility] 08-28-2023 History and physical note Images from the original note were not included. Internal Medicine Admission History & Physical Patient: George Styles, 1970, [id number] Physician: Aric Turner MD, PGY1, Pager #[phone], WK service Date of face to face patient [...] So he went to see the transplant washroom operator. He was found elevated Cr and asked [...] Appetite is ok now. Urine is about 8014-0501 ml every day. 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 His [place] kidney disease was noted to be presumed [...] Urinary histoplasmosis - PJP, candid PCR - Clinical Nurse Reviewer transplant ID Acute Kidney Injury with Kidney [...] losartan 50mg BID CAD: non-obstructive CAD on [facility] 2018. - continue aspirin 81mg [...] by transplant with FUO. Transplant Physician: Erma Canas Melania Pierson, Luisa Steven, Renee Rivera, Daisha Max Program Management Manager: José Miguel Garnica All Txt: 04/13/2020 (Kidney), [...] results found for: CYCLOSPORIN , CYCLOSPORIN2 , [id number] , CYCLORAND No results found for: SIROLIMUS [...] Rest as above. Kevin Sage MD Pager [phone] documented in this encounter [facility] 08-28-2023 History of Present illness Narrative Images from the original note were not included. 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 Program Management Manager: Anayeli Burt Date of Liver Transplant: 04/13/2020 (Kidney), 04/13/2020 (Liver) 3 years 4 months post Liver/Kidney Transplant Primary Disease: Hypertensive Nephrosclerosis Transplant Plan Examiner: Erma Roe/ Daisha Max Primary Care physician: [...] and faMOTIdine === None Specified Preferred Lab: [facility] Change in lab frequency / new order today: No- continue labs every 3 months Labs needed in clinic today? Yes COORDINATOR NOTES: Per note from Victor uHgo liver Coordinator on 08/24/23 :Patient seen in [...] every 12 hours. ADDITIONAL INFORMATION: None Specified, [id number] [place] [address] - [address] [facility] [address] [facility] [address] [facility] [address] [facility] [address] [facility][id number] [place] [address] - [address] [facility] [address] [facility] [address] [facility] Jakob Padgett, [facility] [address] [address] ROS and SCREEN: Chest Pain: negative Cough: [...] PHYSICIAN: I saw George Styles at the [facility] on 08/28/2023. Patient is a 53 y.o. 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 His [place] kidney disease was noted to be presumed [...] GUIDANCE 05/17/2022 Surgeon: Enzo Heart DO; Location: [facility] INTERVENTIONAL RADIOLOGY (VIR) LIVER TRANSPLANT, ORTHOTOPIC N/A 04/12/2020 Laterality: N/A; Surgeon: LU Palma; Location: [facility] SAME DAY SURGERY MAIN OR KIDNEY TRANSPLANT W/O [place] NEPHRECTOMY N/A 04/12/2020 Laterality: N/A; Surgeon: LU Palma; Location: [facility] SAME DAY SURGERY MAIN OR OTHER [...] you have any questions. Steve Latham MD foil spinner Division of Nephrology [facility] documented in this encounter [facility] 08-28-2023 Instructions Mainor Busby RN - 08/28/2023 2:15 PM EDT - Admission for fevers, cough, and night sweats documented in this encounter [facility] 08-19-2023 History of Present illness Narrative [facility] RX OUTREACH ADVANCED: Call Information: Date and Time of Contact: 08/19/2023 2:52 PM Method of Contact: By Phone Contact Type: Prescriptions Contactor: [facility] Contactee: Patient Shipping/Pickup: Medicare B Refill?: No Medication Name: Tacro 0.5mg Delivery Method: Air Delivery Location: Home Signature Required: No Mailing/Pickup Date: 08/25/2023 Shipping Address: [address] [place] [address] Contact Info: Specialty ([place]ena) [phone] [facility] [phone] [facility] [phone] [facility] [phone] Bedside Delivery ([facility]) [phone] documented in this encounter [facility] 06-12-2023 History of Present illness Narrative Images from the original note were not included. George Styles is a 53 y.o. 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 No longer follows with a local washroom operator. History of Present Illness: Since George was [...] included medical records and lab results. Rebeca Olsen MSN, RN, WEB SITE ADMINISTRATOR-BC, CCTN Certified Nurse Practitioner [facility] [address] [facility] [address] documented in this encounter [facility] 06-12-2023 Instructions JEANNA Hess - 06/12/2023 3:00 PM EDT No change in immunosuppression. documented in this encounter [facility] 06-10-2023 History of Present illness Narrative [facility]RE[facility] ADVANCED: Call Information: Method of Contact: By Phone Contact Type: Prescriptions Contactor: [facility] Contactee: Patient Contact Outcome: Left message Shipping/Pickup: Medication Name: Mycophenolate sod 180 mg Contact Info: Specialty ([place]anci) [phone] Jakob [phone] [facility] [phone] David [phone] Bedside Delivery ([facility]) [phone] [facility] RX OUTREACH ADVANCED: Call Information: Date and Time of Contact: 06/12/2023 9:43 AM Method of Contact: By Phone Contact Type: Prescriptions Contactor: [facility] Contactee: Patient Contact Outcome: Left message and Follow-up Shipping/Pickup: Medicare B Refill?: No Medication Name: Myco 180 Contact Info: Specialty (Bena) [phone] [facility] [phone] [facility] [phone] David [phone] Bedside Delivery ([facility]) [phone] [facility] RX OUTREACH ADVANCED: Call Information: Date and Time of Contact: 06/12/2023 10:08 AM Method of Contact: By Phone Contact Type: Prescriptions Contactor: [facility] Contactee: Patient Shipping/Pickup: Medicare B Refill?: No Medication Name: Mycophenolate 180mg DR Delivery Method: Air Delivery Location: Home Signature Required: No Mailing/Pickup Date: 06/17/2023 Shipping Address: [address] [place] [address] Contact Info: Specialty ([place]) [phone] Jakob [phone] [facility] [phone] David [phone] Bedside Delivery ([facility]) [phone] documented in this encounter [facility] 04-13-2023 Note [facility] Subjective George Styles is [...] Legacy Encounter on (more content not included)... [facility] 03-12-2023 History of Present illness Narrative [facility] RX OUTREACH ADVANCED: Call Information: Date and Time of Contact: 03/12/2023 10:34 AM Method of Contact: By Phone Contact Type: Prescriptions Contactor: [facility] Contactee: Patient Shipping/Pickup: Medicare B Refill?: No Medication Name: Mycophenoloate sod 360 mg prednisone 5mg Delivery Method: Air Delivery Location: Home Signature Required: No Mailing/Pickup Date: 03/16/2023 Shipping Address: [address] [place] [address] Contact Info: Specialty (Bena) [phone] Jakob [phone] [facility] [phone] David [phone] Bedside Delivery ([facility]) [phone] [facility] RX OUTREACH ADVANCED: Call Information: [...] Required: No Mailing/Pickup Date: 03/19/2023 Shipping Address: [address] [place] [address] [address] Contact Info: Specialty (Bena) [phone] [facility] [phone] [facility] [phone] David [phone] Bedside Delivery ([facility]) [phone] documented in this encounter [facility] 03-10-2023 History of Present illness Narrative [facility] OUTREACH ADVANCED: Call Information: Date and Time of Contact: 03/10/2023 12:00 PM Method of Contact: By Phone Contact Type: Prescriptions Contactor: [facility] Contactee: Patient Contact Outcome: Left message and Call back later Shipping/Pickup: Medication Name: Mycophenolate ; Tacrolimus Contact Info: Specialty (Bena) [phone] [facility] [phone] [facility] [phone] David [phone] Bedside Delivery ([facility]) [phone] documented in this encounter [facility] 03-10-2023 History of Present illness Narrative [facility] OUTREACH ADVANCED: Call Information: Date and Time of Contact: 03/10/2023 12:00 PM Method of Contact: By Phone Contact Type: Prescriptions Contactor: [facility] Contactee: Patient Contact Outcome: Left message and Call back later Shipping/Pickup: Medication Name: Mycophenolate ; Tacrolimus Contact Info: Specialty (Bena) [phone] [facility] [phone] [facility] [phone] David [phone] Bedside Delivery ([facility]) [phone] [facility] RX OUTREACH ADVANCED: Call Information: Date and Time of Contact: 03/12/2023 10:32 AM Method of Contact: By Phone Contact Type: Prescriptions Contactor: [facility] Contactee: Patient Contact Outcome: Left message Shipping/Pickup: Medication Name: Mycophenolate sodium (MYFORTIC) 180 MG Tab tacrolimus 0.5 mg Contact Info: Specialty (Bena) [phone] Jakob [phone] [facility] [phone] David [phone] Bedside Delivery ([facility]) [phone] [facility] History of Present illness Narrative -Referring Provider for today's consult: Daisha Max DO -Primary Care Provider: Zuly Bruno History of Present Illness George Styles is a 52 y.o. male who presents to the [facility] today for follow-up of [...] GUIDANCE 05/17/2022 Surgeon: Enzo Heart DO; Location: [facility] INTERVENTIONAL RADIOLOGY (VIR) LIVER TRANSPLANT, ORTHOTOPIC N/A 04/12/2020 Laterality: N/A; Surgeon: LU Palma; Location: [facility] SAME DAY SURGERY MAIN OR KIDNEY TRANSPLANT W/O [place] NEPHRECTOMY N/A 04/12/2020 Laterality: N/A; Surgeon: LU Palma; Location: [facility] SAME DAY SURGERY MAIN OR OTHER [...] 0.3 12/29/2022 Explant Pathology Pathologic Diagnosis A. [place] liver, orthotopic liver transplant resection (1458 gram): [...] A/P with IV contrast (06/27/2022): 1. Both [place] kidneys are atrophic with improvement in right-sided [...] frequent nighttime urination, etc). Daisha Max DO Supervisor Finishing Department Gastroenterology, Hepatology and Nutrition [facility] Pager: [phone] Images from the original note were not included. 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 Program Management Manager: Anayeli Burt Date of Liver Transplant: 04/13/2020 (Kidney), 04/13/2020 (Liver) 2 years, 8 months post Liver/Kidney Transplant Primary Disease: Hypertensive Nephrosclerosis Transplant Plan Examiner: Steve Latham Primary Care physician: Zuly Bruno [...] levels: No results found for: CYCLOSPORIN, CYCLOSPORIN2, [id number], CYCLORAND No components found for: CYCLOSPORINE, 2HR [...] hours. ADDITIONAL INFORMATION: None Specified [id number] [place] [address] - [address] [facility] [address] [facility] [address] [facility] [address] [facility] [facility] [address] [id number] [place] [address] [address] [facility] [address] [facility] [address] [facility]ob [address], [address] [facility] [address] ROS and SCREEN: Chest Pain: negative Cough: [...] ADDRESS WITH PHYSICIAN: documented in this encounter [facility] 01-16-2023 Instructions José Miguel Garnica RN - 01/16/2023 9:40 AM EST - Labs Every 2 months - Discuss night time urination with your PCP - Schedule Colonoscopy through PCP - Follow up in 1 year documented in this encounter [facility] 09-10-2022 History of Present illness Narrative [...] and no hydronephrosis. Some reflux up the [place] right ureter but good drainage of both transplant and [place] ureter to the bladder. Nephrostomy tube was [...] transplant, orthotopic (N/A, 04/12/2020); kidney transplant w/o [place] nephrectomy (N/A, 04/12/2020); and placement nephrostomy catheter [...] Negative for , diarrhea, constipation Genitourinary: See [place] Neurological: Negative for headaches. Lymph/Heme: Negative for [...] x 4, Normal strength. No edema. Skin: [place], warm, and dry. There are no rashes [...] and no hydronephrosis. Some reflux up the [place] right ureter but good drainage of both transplant and [place] ureter to the bladder. Nephrostomy tube was [...] MD 09/10/22 documented in this encounter [facility] 07-07-2022 History of Present illness [...] assisted off the table and escorted to law office receptionist where they made a follow up. [...] to have transplant ureter with anastomosis to [place] right ureter. Nephrostogram without filling defects and no hydronephrosis. Some reflux up the [place] right ureter but good drainage of both transplant and [place] ureter to the bladder. Nephrostomy tube was removed without issue. Patient does have some sensation of incomplete bladder emptying and occasional sensation in his right flank. PVR today was 33cc. Will re-evaluate urinary symptoms at next appointment. --continue Flomax --RTC in one month flow flow/PVR/IPSS Patient to call with any additional questions or concerns. Ryan Yepez MD 07/07/22 documented in this encounter [facility] 06-27-2022 History of Present illness [...] transplant, orthotopic (N/A, 04/12/2020); kidney transplant w/o [place] nephrectomy (N/A, 04/12/2020); and placement nephrostomy catheter [...] Negative for , diarrhea, constipation Genitourinary: See [place] Neurological: Negative for headaches. Lymph/Heme: Negative for [...] x 4, Normal strength. No edema. Skin: [place], warm, and dry. There are no rashes [...] yo male with a DDRT to the [facility] 2019. Nephrostomy tube placed [...] bag if needed. documented in this encounter [facility] 06-27-2022 History and physical note Patient was evaluated in clinic as a nurse visit. Please refer to Rena Brewsetr's note. [facility] Work Phone: 06-27-2022 History and physical note Patient was evaluated in clinic as a nurse visit. Please refer to Rena Brewster's note. documented in this encounter [facility] 06-27-2022 History of Present illness Narrative TEACHING REGARDING TX NEPH COMPLETED-NEPH TUBE SITE DRY AND INTACT-CLEAR YELLOW URINE IN THE BAG-INSTRUCTED ABOUT FLUSHING, BAG CHANGING ETC. NUMEROUS QUESTIONS ASKED AND ANSWERED-VERBALIZED UNDERSTANDING documented in this encounter [facility] 06-18-2022 Note EXAMINATION: CT ABD/ PELVIS [...] mass or enlargement. KIDNEYS: Marked atrophy of [place] kidneys. Transplant right pelvic kidney with percutaneous [...] authenticated by: MÓNICA JIMENEZ Date: 2022-06-18 13:53 [facility] 06-12-2022 Instructions Anayeli Christianson RN - 06/12/2022 3:21 PM EDT Do not take apart/disrupt nephrostomy tube system. Call Interventional Radiology and/or on-call transplant nurse [phone] for instruction if need to flush (clot or decreased flow). Take cipro 500mg, one tablet, twice per day for 14 days documented in this encounter [facility] 06-12-2022 History of Present illness Narrative Images from the original note were not included. 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 Program Management Manager: Anayeli Burt Date of Liver Transplant: 04/13/2020 (Kidney), 04/13/2020 (Liver) 2 year, 1 months post Liver/Kidney Transplant Primary Disease: Hypertensive Nephrosclerosis Transplant Plan Examiner: Steve Latham Primary Care physician: Zuly Bruno [...] Non-obstructing kidney stone in renal graft at [facility]. Percutaneous Neph Tube placed Images from the original note were not included. Nursing Assessment In Clinic (see Clinic Prep Sheet for additional information) Patient is accompanied to clinic today by: self Did patient require a wheelchair or medical transport for appointment: no Did front line leader confirm current address and insurance information is [...] AND PHARMACY: None Specified [facility] [id number] - [address] [facility] [address] [facility] [address] [facility] [address] [facility] [address] [id number] [place] [address] [address] [facility] [address] [facility] [address] [facility]ob [address], [address] [facility] [address] ROS and SCREEN: Chest Pain: negative Cough: negative SOB: negative Abd Pain: negative Nausea: positive Vomiting: negative Diarrhea: negative Constipation: negative Dysuria: positive Edema: negative Tremors: negative Headaches: negative Wound issues: negative Pt has neph tube w clear yellow urine. States he had a small clot that he dislodged QUESTIONS OR CONCERNS TO ADDRESS WITH PHYSICIAN: I saw George Styles at the [facility] on 06/12/2022. Patient is a 52 y.o. 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 His [place] kidney disease was noted to be presumed [...] GUIDANCE 05/17/2022 Surgeon: Enzo Heart DO; Location: [facility] INTERVENTIONAL RADIOLOGY (VIR) LIVER TRANSPLANT, ORTHOTOPIC N/A 04/12/2020 Laterality: N/A; Surgeon: LU Palma; Location: [facility] SAME DAY SURGERY MAIN OR KIDNEY TRANSPLANT W/O [place] NEPHRECTOMY N/A 04/12/2020 Laterality: N/A; Surgeon: LU [...] you have any questions. Steve Latham MD foil spinner Division of Nephrology [facility] documented in this encounter [facility] 06-04-2022 Instructions TATI GROVE - 06/04/2022 11:04 AM EDT Thank you for joining us for your neph tube follow up. We recommend routine exchange every 8-10 weeks. Please reach out at [phone] when it is time to set your next routine exchange. Thank you IR clinic documented in this encounter [facility] 06-04-2022 History of Present illness Narrative [...] exchange. Verbalized understanding. documented in this encounter [facility] 05-20-2022 Note Formatting of this n [...] time of his discharge. Leon Cook RN [facility] 05-20-2022 Miscellaneous Notes Patient discharged. AVS [...] provide teaching before his discharge Leon RN #[id number] Leon Cook RN Afternoon assessment completed at [...] Interdisciplinary Rounds/Family Conf Outcome: Ongoing Discussed with [facility] re: possible urine culture performed [...] with questions. Evan Byrd MD Urology, PGY-2 #[id number] I certify that this patient requires inpatient [...] Kallie Lorenzana RN documented in this encounter [facility] 05-20-2022 Note Formatting of this n [...] discharge/transition of care. Outcome: Adequate for Discharge [facility] 05-20-2022 Note Formatting of this n ote might be different from the original. Anne Dillard MD R10 [address]m [address] Jensen George Please let's have a clear order on how the nephrostomy site dressing need to be changed when the patient goes home so we provide teaching before his discharge Leon RN #[id number] Leon Cook RN [facility] 05-20-2022 History of Present illness Narrative Images from the original note were not included. [facility] Note: [facility] received the following discharge prescription(s): Medication reconciliation was completed with comparison to discharge reconciliation report. The prescription(s) will be delivered to the patient's bedside on 05/20/22. Total cost is $0. Yanira Her RPh,PharmD Specialty (Bena) [phone] Jakob [phone] [facility] [phone] David [phone] [place] [phone] Bedside Delivery ([facility]) [phone] Attending I saw George Styles at the [facility] on 05/19/2022. I saw and independently evaluated [...] Evan Bennett MD 650 mg at 05/18/22 7665 allopurinol (ZYLOPRIM) tablet 100 mg 100 mg Oral Daily Nishant Gamez MD 100 mg at 05/19/22 0805 amLODIPine (NORVASC) tablet 5 mg 5 mg Oral Daily Evan Bennett MD 5 mg at 05/19/22 0805 aspirin chewable tablet 81 mg 81 mg Oral Daily Evan Bennett MD 81 mg at 05/19/22 0805 atorvastatin (LIPITOR) tablet 20 mg 20 mg Oral QHS Evan Bnenett MD 20 mg at 05/18/221999 benzocaine-menthol (CEPACOL) [...] Daily Progress Note Patient: George Styles, 1970, [id number] Physician: Liam Julian MD, PGY-3, Pager #[phone], [id number] Subjective/Interval History: No acute events overnight. Passed stone this morning, will send to lab for analysis. Overall reporting improvement in abdominal pain. Objective: Vitals: 05/19/22 040 BP: 174/77 Pulse: 62 Resp: 16 Temp: [...] Saldana MD Division of Hospital Medicine Pager [phone] Attending I saw George Styles at the [facility] on 05/18/2022. 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 Daya Saldana MD (Peggy) Division of Hospital Medicine Pager [phone] Internal Medicine Daily Progress Note Patient: George Styles, 1970, [id number] Physician: Nishant Gamez MD, PGY2, Pager #[phone], [id number] Subjective/Interval History: Worsening creatinine this morning with [...] MD (Peggy) Division of Hospital Medicine Pager [phone] Attending I saw George Styles at the [facility] on 05/17/2022. I saw and independently evaluated [...] of chart and discussion with treatment team, Oxidation Operator has not identified needs at this time. [...] follow. Introduced self and role of the proofer to patient. Provided emotional and spiritual support and the patient responded by sharing their experience and discussed the following: - Spirituality/Nondenominational Affiliation: As a kid attended [employer] restorationism but not a strong identity now - Family support - pt's brothers live close by Environmental Monitoring Specialist provided: - Supportive presence - Active listening - Validation of feelings/emotions Patient encouraged to request a proofer as needed. Chaplains are available in-house 24 hours a day and 7 days a week. For urgent matters in [facility], please page [phone]. If the request is not urgent, please enter a consult. Consults are responded to within 24 hours. Angie Singh Mdiv, [facility] [place] [address] Environmental Monitoring Specialist [facility] Environmental Monitoring Specialist Kirk [phone] [email or web address] 22/06 [facility] Pager [phone] 22/06 Pager ,[facility], and Brock 1500 22/06 David Pager [phone] 05/16/22 1129 Clinical Encounter Type Visited With Patient Visit Type Introduction Pastoral Time Spent 15 min Referral Other (See Comment) (Rounding) Spiritual Assessment Spiritual Observation Spirituality helpful;Identifies as (see comment) (Jew) Emotional Observation Coping well Hope Observation Hopeful and accepting Support Observation By Family Interventions Provided Active listening;Supportive presence Facilitated Verbalization of feelings;Sharing of life story;Identifying support system Explored Expectations Legal Mediator Education Legal Mediator Service Available Yes Educated Patient Outcomes Patient Outcomes Articulated purpose/meaning Plan of Care Continue Visiting PRN Internal Medicine Daily Progress Note Patient: George Styles, 1970, [id number] Physician: Nishant Gamez MD, PGY2, Pager #[phone], [email or web address] Subjective/Interval History: Overall feeling okay this morning. 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 [...] Supervision Transfer Assessment: Sit to Stand Transfer [place] Level: Sit->Stand: independent Skilled Intervention/Details: Sit->Stand: x1 from EOB Stand to Sit Transfer [place] Level: Stand->Sit: supervision Assistive Device: Stand->Sit: armed chair Skilled Rationale: Controlled descent for sitting, Verbal cues Gait/Functional Mobility: Gait Assessment [place] Level: Gait: supervision Assistive Device: Gait: gait belt Gait Distance (feet): 200 Gait Deviations Identified: decreased grace, decreased step length, decreased stride length Gait Skilled Rationale: verbal, upright posture Skilled Intervention/Details - Gait: Pt with steady gait without LOB or complaints of SOB. Stairs: Stairs Assessment [place] Level: Stair Negotiation: stand-by assist Assistive Device: Stair Negotiation: gait belt, left rail (ascending) Number of stairs: 9 Stairs Skilled Rationale: reciprocal pattern Outcome Score(s): [facility] Basic Mobility Inpatient Short Form Turning over in bed: 4 - No Assistance Sitting/standing from chair: 4 - No Assistance Moving from lying on back to sittin - No Assistance Moving to and from bed to chair: 4 - No Assistance Walk in hospital room: 3 - A Little Assistance Climbing 3-5 steps with a railin - A Little Assistance [facility] Mobility Raw Score: 22 [facility] Mobility Functional Limitation/Modifier: 20.91% Currently Impaired in [...] reported no concerns with discharging [facility]. 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 IADL History IADLs: independent Primary Language: American Home Management Skills: independent Meal Prep Responsibility: [...] Assessment: Transfer Assessment: Sit to Stand Transfer [place] Level: Sit->Stand: independent Skilled Rationale: Cues for increased safety Skilled Intervention/Details: Sit->Stand: x1 EOB Stand to Sit Transfer [place] Level: Stand->Sit: supervision Assistive Device: Stand->Sit: gait belt, armed chair Skilled Rationale: Verbal cues, Controlled descent for sitting, Cues for increased safety Skilled Intervention/Details: Stand->Sit: cues for hand placement and controlled descent Functional Mobility: Functional Mobility [place] Level: Functional Mobility/Gait: stand-by assist Assistive Device: Functional Mobility/Gait: gait belt Functional Mobility Distance: Distance needed for limited community mobility Functional Mobility Deficits: Activity tolerance, Balance, Decreased step length, Generalized weakness Functional Mobility Skilled Rationale: Verbal cues, Facilitate postural control Skilled Intervention/Details - Functional Mobility/Gait: cues for upright posture Outcome Score(s): [facility] Daily Activity Inpatient Short Form Putting on/Taking Off Lower Body Clothin - A Little Assistance Bathin - A Little Assistance Toiletin - A Little Assistance Putting on/Taking Off Upper Body Clothin - No Assistance Groomin - No Assistance Eatin - No Assistance [facility] Activity Raw Score: 21 [facility] Activity Functional Limitation/Modifier: 32.79% Currently Impaired in [...] 04/12/2020 Laterality: N/A; Surgeon: LU Palma; Location: [facility] SAME DAY SURGERY MAIN OR KIDNEY TRANSPLANT W/O [place] NEPHRECTOMY N/A 04/12/2020 Laterality: N/A; Surgeon: LU [...] by: Mel Norman OT, OTR/L License #: [id number] pager # [phone] 05/20/2022 Upon discontinuation of Acute Care Occupational Therapy Services or patient discharge from the hospital this note represents the current Occupational Therapy Discharge Summary. documented in this encounter [facility] 05-20-2022 Hospital course Narrative Discharge [...] during his recent hospital stay at [facility]. As you may know, George Styles, [...] Saldana MD Division of Hospital Medicine p: [phone] f: [phone] CONSULTS DURING ADMISSION: IP CONSULT TO SURGERY - UROLOGY IP CONSULT TO NEPHROLOGY - TRANSPLANT (MEDICINE) IP CONSULT TO INTERVENTIONAL RADIOLOGY IP CONSULT TO PHYSICAL THERAPY IP CONSULT TO OCCUPATIONAL THERAPY IP CONSULT TO PHARMACY BEDSIDE DISCHARGE MED DELIVERY IMAGING / PROCEDURES / RESULTS: Should you require further information or copies of results or reports please contact Medical Information Management @ [phone] LABS AT TIME OF DISCHARGE: Lab Results [...] Bruno [address] / [place] [address] MEDICATIONS: Discharge Orders CT ABDOMEN/PELVIS WITHOUT CONTRAST [...] CAPS Generic drug: docusate Follow-up: Zuly Bruno, BALL MILL OPERATOR [address] [facility] [phone] Schedule an appointment as soon as possible for a visit Follow-up appointment with your, primary care physician within 7-10 days, after discharge. [address] [facility] [phone] Follow up The department of urology will call you with a follow up appointment. LU Ovalle [address] 11th Floor [facility] [address] Follow up Please make a follow up appointment with Dr. Latham's office. Upcoming Appointments (up to five)-Some appointments for Medical Center outpatient clinics or diagnostic testing locations are not displayed below Provider Department Dept Phone 06/04/2022 10:40 AM IR [facility] Interventional Radiology Clinic [phone] 06/27/2022 1:30 PM [facility] Department of Radiology Arrive at: Arrive to First Floor Registration Desk [phone] 06/27/2022 2:40 PM Ryan Yepez [facility] [place] Arrive at: Arrive to 2nd Floor, Registration [address] 10/31/2022 1:00 PM Steve Latham [facility] Transplant [facility] [phone] 01/16/2023 9:40 AM TRANSPLANT HEPATOLOGY , [facility] Transplant [facility] [phone] Associated attestation - Daya Saldana MD - [...] MD (Peggy) Division of Hospital Medicine Pager [phone] documented in this encounter [facility] 05-20-2022 Hospital Discharge instructions Giulia [...] be changed by Interventional Radiology. Please call [phone] to schedule this appointment and with any questions or concerns you may have regarding the nephrostomy tube. If you have questions or concerns, please call Interventional Radiology at SOMEONE FROM INTERVENTIONAL RADIOLOGY WILL CALL YOU FOR A FOLLOW UP IN THE IR CLINIC Giulia Cavazos RN Nurse Coordinator Interventional Radiology Interventional Radiology Outpatient scheduling documented in this encounter [facility] 05-19-2022 Note Formatting of this n [...] Ongoing Goal: Interdisciplinary Rounds/Family Conf Outcome: Ongoing [facility] 05-19-2022 Note Formatting of this n ote might be different from the original. Discussed with [facility] re: possible urine culture performed at their facility. However, based on urinalysis completed at that time, which was only notable for hematuria, culture was not performed and sample no longer feasible for culture. Liam Julian MD Internal Medicine/Pediatrics, PGY-3 [facility] 05-18-2022 Note Formatting of this n ote might be different from the original. 2002: IHIS message sent to Dr Justyn Wen, regarding patient passing a small kidney stone, about the size of pea. MD notified. Stone left in strainer in pt bathroom. 0500: IHIS message sent to Dr Justyn Wen, regarding pt BP 174/77. [facility] 05-18-2022 Note Formatting of this n [...] outcomes by discharge/transition of care. Outcome: Ongoing [facility] 05-18-2022 Note Formatting of this n [...] becomes hyponatremic, NS should instead be used. [facility] Work Phone: 05-18-2022 Note Formatting of this n ote might be different from the original. IHIS chat sent to Dr Tray Quintana, regarding pt BP 190/86. Pt complaining of pain at site of neph tube. PRN pain medication given per order parameters. Pt denies any other symptoms at this time. MD notified and aware. [facility] 05-17-2022 Note Formatting of this n ote might be different from the original. At 0900, I rounded with Dr. Gamez and Dr. Saldana. At that time I checked Mr. Styles's vital signs. His pulse oximeter was low and he was tachypneic. Verbal order at bedside to put nasal cannula on starting at 2liters oxygen and to provide incentive spirometer. [facility] 05-17-2022 Note Formatting of this n ote might be different from the original. Interventional Radiology procedure completed with IR Attending Dr. Heart / Dr. Le of percutaneous right nephrostomy tube placement transplant kidney 10.2 Fr Griffin acosta Pt tolerated procedure with moderate sedation local numbing agent . Transported to inpatient after phase I recovery. Post procedure orders in place. [facility] 05-16-2022 Note Formatting of this n ote might be different from the original. At 1530, I text chavad Kaitlynn Gomez MD that patient has only had 25ml urine output in myers this afternoon. [facility] 05-16-2022 Note Formatting of this n [...] with questions. Evan Byrd MD Urology, PGY-2 #[id number] [facility] Work Phone: 05-16-2022 Note Formatting of this n ote might be different from the original. I certify that this patient requires inpatient services at this time. I anticipate the expected length of stay will include at least two midnights. Inpatient services are due to the following medical concerns Obstructive kidney stone. Plans for post hospitalization care will be discharge to home. [facility] 05-16-2022 Consult note Associated Order (s): IP CONSULT TO NEPHROLOGY - TRANSPLANT (MEDICINE) I saw George Styles at the [facility] on 05/16/2022. Reason for Consultation: kidney stone [...] he was given flomax and sent home. Severn better but noticed more pain and decreased [...] best assessment and recommendations. Maxi Pringle MD [facility] Work Phone: 05-16-2022 Consult note Associated Order (s): IP CONSULT TO NEPHROLOGY - TRANSPLANT (MEDICINE) I saw George Styles at the [facility] on 05/16/2022. Reason for Consultation: kidney stone and FYAE; LK transplant 2019 on tac/cellcept. Held them [...] he was given flomax and sent home. Severn better but noticed more pain and decreased [...] states he went to his local ED [place] and he was put on Flomax and he did improve. Pt states last night he was unable to void with severe right sided abd pain. Pt states nausea and no vomiting or fevers. Pt states he went back to [place] ED at 0100 and they placed a [...] orthotopic (N/A, 04/12/2020); and kidney transplant w/o [place] nephrectomy (N/A, 04/12/2020). 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 The [place] kidneys are progressively atrophic bilaterally compared to [...] of 06/14/2020 are no longer present. The [place] distal right ureter is decompressed beyond this [...] with surgical history for renal graft and [place] right urinary drainage, as a discrete ureteroneocystostomy is not identified, and the graft may be draining via a ureteroureterostomy. Urology consultation recommended. 3. The [place] kidneys are bilaterally atrophic, with right renal sinus calcifications consistent with nonobstructing right [place] renal calculi up to 6 mm. Normal [...] PGY-3, Department of Urologic Surgery Pager #: [phone] Associated attestation - Ryan Yepez MD - [...] continue flomax documented in this encounter [facility] 05-16-2022 Note Formatting of this [...] supported Trust Relationship/Rapport: care explained choices provided [facility] 05-16-2022 Note Formatting of this n ote might be different from the original. On admission to R10, a dual RN initial assessment of skin condition was performed by Kallie Lorenzana RN and Sheri Arguelles RN. Skin Assessment: WDL Jose Score: 20 LDA Added:N Kallie Lorenzana RN [facility] 05-15-2022 Emergency department Note Report given to Kallie RN at 10 [facility] 05-15-2022 Emergency department Note Report given to Kallie RN at [address] Villatoro at bedside, [...] diagnosed Thursday and was sent home with chantal. He went back to that ED and [...] DAY SURGERY MAIN OR KIDNEY TRANSPLANT W/O [place] NEPHRECTOMY N/A 04/12/2020 Laterality: N/A; Surgeon: LU [...] Schneider MD Resident 05/15/222030 Pt arrives from [facility] with kidney stones. Pt states he had right lower abd pain and right flank pain with blood in his urine since Thursday. Pt states he went to his local ED [place] and he was put on Flomax and he did improve. Pt states last night he was unable to void with severe right sided abd pain. Pt states nausea and no vomiting or fevers. Pt states he went back to [place] ED at 0100 and they placed a myers and CT scan completed and multiple kidney stones noted. Pt [facility] as he had liver and kidney transplant in 03/2020. documented in this encounter [facility] 05-15-2022 History and physical note Internal Medicine Admission History & Physical Patient: George Styles, 1970, [id number] Physician: Evan Bennett MD, PGY1, Pager #[phone], GM 4 service Date of face to [...] DAY SURGERY MAIN OR KIDNEY TRANSPLANT W/O [place] NEPHRECTOMY N/A 04/12/2020 Laterality: N/A; Surgeon: LU [...] erythema: Skin: No jaundice or rash Neuro: senior consulting manager 3-7, 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 Strength grossly [...] dilation of the calyces may represent narrowing/partial [id number] ofthe ureter and mild hydronephrosis or sequela [...] Prince MD Division of Hospital Medicine [phone] [facility] Work Phone: 05-15-2022 History and physical note Internal Medicine Admission History & Physical Patient: George Styles, 1970, [id number] Physician: Evan Bennett MD, PGY1, Pager #[phone], 4 service Date of face to face [...] DAY SURGERY MAIN OR KIDNEY TRANSPLANT W/O [place] NEPHRECTOMY N/A 04/12/2020 Laterality: N/A; Surgeon: LU [...] erythema: Skin: No jaundice or rash Neuro: senior consulting manager 3-7, 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 Strength grossly [...] dilation of the calyces may represent narrowing/partial app7cejaste ofthe ureter and mild hydronephrosis or sequela [...] Medicine [id number] documented in this encounter [facility] 05-15-2022 Emergency department Note Bladder scan with Dr Villatoro at bedside, 14ml noted [facility] 05-15-2022 Consult note Associated Order [...] states he went to his local ED [place] and he was put on Flomax and he did improve. Pt states last night he was unable to void with severe right sided abd pain. Pt states nausea and no vomiting or fevers. Pt states he went back to [place] ED at 0100 and they placed a [...] orthotopic (N/A, 04/12/2020); and kidney transplant w/o [place] nephrectomy (N/A, 04/12/2020). 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 The [place] kidneys are progressively atrophic bilaterally compared to [...] of 06/14/2020 are no longer present. The [place] distal right ureter is decompressed beyond this [...] with surgical history for renal graft and [place] right urinary drainage, as a discrete ureteroneocystostomy is not identified, and the graft may be draining via a ureteroureterostomy. Urology consultation recommended. 3. The [place] kidneys are bilaterally atrophic, with right renal sinus calcifications consistent with nonobstructing right [place] renal calculi up to 6 mm. Normal [...] PGY-3, Department of Urologic Surgery Pager #: [phone] Associated attestation - Ryan Yepez MD - [...] before surgical intervention --may continue flomax [facility] Work Phone: 05-15-2022 Emergency department Note Advised Dr Schneider concerning no urine output via myers catheter. [facility] 05-15-2022 Physician Emergency department Note [...] plan of care. Gian Villatoro MD 05/15/222003 [facility] Work Phone: 05-15-[address] Schneider made aware of only 30 ml urine via myers since arrival to room. [facility] 05-15-2022 Physician Emergency department Note dEPARTMENT [...] DAY SURGERY MAIN OR KIDNEY TRANSPLANT W/O [place] NEPHRECTOMY N/A 04/12/2020 Laterality: N/A; Surgeon: LU [...] incorrections. Matt Schneider MD Resident 05/15/222030 [facility] Work Phone: 05-15-2022 Emergency department Note Pt arrives from [facility] with kidney stones. Pt states he had right lower abd pain and right flank pain with blood in his urine since Thursday. Pt states he went to his local ED [place] and he was put on Flomax and he did improve. Pt states last night he was unable to void with severe right sided abd pain. Pt states nausea and no vomiting or fevers. Pt states he went back to [place] ED at 0100 and they placed a myers and CT scan completed and multiple kidney stones noted. Pt sent to [facility] as he had liver and kidney transplant in 03/2020. [facility] 03-14-2022 History of Present illness Narrative [...] Required: No Mailing/Pickup Date: 03/17/2022 Shipping Address: [address] [place] [address] [address] Contact Info: Specialty (Bena) [phone] [facility] [phone] [facility] [phone] David [phone] Bedside Delivery ([facility]) [phone] documented in this encounter [facility] 06-14-2021 History of Present illness Narrative [...] Goal Progress: Satisfactory Contact Info: Specialty (Yanci) [phone] Jakob [phone] [facility] [phone] [facility] [phone] Bedside Delivery ([facility]) [phone] [facility] OP RX OUTREACH: Call Information: Date [...] Location: Home Signature Required: Yes Shipping Address: [address] [place] [id number] Contact Info: Specialty (Yanci) [phone] [facility] [phone] [facility] [phone] [facility] [phone] Bedside Delivery ([facility]) [phone] documented in this encounter [facility] Evaluation note Diagnosis FAYE (acute kidney injury)- Primary Acute kidney failure, unspecified Hydronephrosis due to obstruction of ureteral orifice Hydronephrosis due to obstruction of ureteral orifice FAYE (acute kidney injury) Acute kidney failure, unspecified [facility] Diagnosis Follow-up exam- Primary Unspecified follow-up examination [facility] Diagnosis Immunosuppressed status- Primary Unspecified disorder of immune mechanism Kidney replaced by transplant Liver replaced by transplant Abnormal blood chemistry Other abnormal blood chemistry High risk medication use Encounter for long-term (current) use of other medications Aftercare following organ transplant Liver transplant recipient [facility] Attention to nephrostomy- Primary [facility] Diagnosis Other hydronephrosis- Primary [facility] Diagnosis FAYE (acute kidney injury) Acute kidney failure, unspecified [facility] Diagnosis Other hydronephrosis- Primary -donor kidney transplant recipient Kidney replaced by transplant [facility] Diagnosis Other hydronephrosis [facility] Diagnosis 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) Encounter for screening for malignant neoplasm of prostate Special screening for malignant neoplasm of prostate [facility] Diagnosis Abnormal blood chemistry- Primary Other abnormal blood chemistry Liver transplant recipient Kidney replaced by transplant Immunosuppressed status Unspecified disorder of immune mechanism Aftercare following organ transplant [facility] Diagnosis Kidney replaced by transplant- Primary [facility] Diagnosis Immunosuppressed status- Primary Unspecified disorder of immune mechanism Kidney replaced by transplant Aftercare following organ transplant High risk medication use Encounter for long-term (current) use of other medications Other general symptoms and signs Abnormal blood chemistry Other abnormal blood chemistry Hypertension secondary to other renal disorders documented [facility] this encounter [facility] [facility] CenterEvaluation note* Diagnosis Histoplasmosis- Primary Histoplasmosis, [...] Fever, unspecified [facility] this [facility] Consultation (Routine) - New Request Specialty Diagnoses / Procedures Referred By Deni edwards Referred To Contact Interventional Radiology Diagnoses Hydronephrosis due to obstruction of ureteral orifice Daya Saldana MD [address] [place] [address] Referral ID Status Reason Start Date Expiration Date V isits Requested Visits Authorized [id number] New Request 05/18/2022 06/12/2023 1 1 * Radiology (Emergency) - New Request Specialty Diagnoses / Procedures Referred By Deni edwards Referred To Contact Procedures US RENAL TRANSPLANT SCAN Daya Saldana MD [address] [place] [address] Referral ID Status Reason Start Date Expiration Date V isits Requested Visits Authorized [id number] New Request 05/16/2022 06/10/2023 1 1 * Consultation (Routine) - New Request Specialty Diagnoses / Procedures Referred By Deni edwards Referred To Contact Urology Diagnoses FAYE (acute kidney injury) Ryan Yepez MD [address] [facility] [address] [place] [address] Referral ID Status Reason Start Date Expiration Date V isits Requested Visits Authorized [id number] New Request 05/16/2022 06/10/2023 1 1 * MRI/CAT Scan (Routine) - New Request Specialty Diagnoses / Procedures Referred By Contac t Referred To Contact Diagnoses FAYE (acute kidney injury) Procedures CT ABDOMEN/PELVIS WITHOUT CONTRAST CHG CT SCAN,ABDOMENT AND PELVIS,W/O CONTRAST Ryan Yepez MD [address] [place] [address] Referral ID Status Reason Start Date Expiration Date V isits Requested Visits Authorized [id number] New Request 05/16/2022 06/10/2023 1 1 * (Routine) - Pending Review Specialty Diagnoses / Procedures Referred By Contac t Referred To Contact Procedures PLATELET MONITORING PER PROTOCOL Daya Saldana MD [address] [place] [address] Referral ID Status Reason Start Date Expiration Date V isits Requested Visits Authorized [id number] Pending Review 05/15/2022 06/09/2023 1 1 * (Routine) - Pending Review Specialty Diagnoses / Procedures Referred By Contac t Referred To Contact Procedures DVT/VTE RISK ASSESSMENT Daya Saldana MD [address] [place] [address] Referral ID Status Reason Start Date Expiration Date V isits Requested Visits Authorized [id number] Pending Review 05/15/2022 06/09/2023 1 1 * (Routine) Specialty Diagnoses / Procedures Referred By Contac t Referred To Contact Evan Bennett MD [address] [place] [address] Referral ID Status Reason Start Date Expiration Date Visits Re quested Visits Authorized * (Routine) Specialty Diagnoses / Procedures Referred By Deni t Referred To Contact Evan Bennett MD [address] [place] [address] Referral ID Status Reason Start Date Expiration Date Visits Re quested Visits Authorized [facility] for referral (narrative)* Consultation (Routine) - New Request Specialty Diagnoses / Procedures Referred By Deni t Referred To Contact Sleep Medicine Diagnoses Hypoxia Kevin Sage MD [address] [address] Referral ID Status Reason Start Date Expiration Date V isits Requested Visits Authorized [id number] New Request 09/10/2023 10/04/2024 1 1 * MRI/CAT Scan (Routine) - New Request Specialty Diagnoses / Procedures Referred By Deni t Referred To Contact Diagnoses Histoplasmosis Procedures CT CHEST WITHOUT CONTRAST CHG DIAGNOSTIC COMPUTED TOMOGRAPHY THORAX W/O ROBERTT Kevin Sage MD [address] [place] [address] Referral ID Status Reason Start Date Expiration Date V isits Requested Visits Authorized [id number] New Request 09/10/2023 10/04/2024 1 1 * Radiology (Routine) - New Request Specialty Diagnoses / Procedures Referred By Deni t Referred To Contact Procedures US RENAL TRANSPLANT SCAN Steve Latham MBBS [address] [place] [address] Referral ID Status Reason Start Date Expiration Date V isits Requested Visits Authorized [id number] New Request 08/29/2023 09/22/2024 1 1 * (Routine) - New Request Specialty Diagnoses / Procedures Referred By Contac t Referred To Contact Procedures PLATELET MONITORING PER PROTOCOL Steve Latham MBBS [address] [place] [phone] Referral ID Status Reason Start Date Expiration Date V isits Requested Visits Authorized [id number] New Request 08/28/2023 09/21/2024 1 1 * (Routine) - New Request Specialty Diagnoses / Procedures Referred By Contac t Referred To Contact Procedures DVT/VTE RISK ASSESSMENT Steve Latham MBBS [address] [place] [phone] Referral ID Status Reason Start Date Expiration Date V isits Requested Visits Authorized [id number] New Request 08/28/2023 09/21/2024 1 1 [facility] Instructions * Patient Instructions - Christin Elizabeth APRN-ROB - 10/19/2018 9:21 AM EST You should take an extra dose of the lactulose as needed so that you are having 3-4 bowel movementsdaily. You should start the chemical dependency counseling as soon as possible. If you have questions, call the transplant social service coordinator Melania Pierson. in this encounter* Patient Instructions - Sophie Cary RN - 10/12/2018 11:09 AM EST You have been seen in the pre-transplant evaluation clinic by Dr. Restrepo and Sophie Cary. Sophie Cary is your pre-early childhood services coordinator she can be reached at [phone] at any time for questions during the pre-transplant process. Your evaluation is complete pendin. Abdominal ultrasound. 2. 6 minute walk test. 3. Cardiology evaluation. Additionally, your med spa manager will recommend testing to screen for coronary artery disease. This will be scheduled for you after your cardiology visit. 4. Your coordinator will be requesting record from your last dental visit, colonoscopy and EGD. 5. Please work to complete social work recommendations. Your social service coordinator will be contacting you to follow up on your progress. 6. You have also been referred for a kidney transplant. An appointment will be scheduled for you sari evaluated in the kidney transplant clinic after you have satisfied requirements dictated by [employer] company. Once your testing is complete, we [...] ___ Other Name MRN * Christin Elizabeth, WEB SITE ADMINISTRATOR-BALL MILL OPERATOR - 10/19/2018 9:00 AM EST Formatting of this note may be different from the original. History of Present Illness: Chief Complaint Patient presents with Follow-up Cirrhosis George Styles is a 48 y.o. male who presents to the [facility] G[facility] today regarding his diagnosis/chief complaint(s) of Cirrhosis secondary to ETOH, with ESRD follows with Dr. Orr. Currently undergoing evaluation for liver/kidney transplant. Has been seen in transplant clinic for eval. Still undergoing pre testing. Diagnosed in April 2018. Last drink was immediately prior to hospital admission in [place] for ACLF. Hospital course notable for ARF [...] (human immunodeficiency virus infection); Hyperlipidemia; Hyperthyroidism; Hypothyroidism; RI (myocardial infarction); Migraine; DARLENE (obstructive sleep apnea); [...] kidney transplant evaluation. Pt was AOx3. Transplant Cement Car Dumper role/function was explained and reviewed. The patient was informed that the results of this assessment will be shared with the referring provider and the transplant team. The patient verbalized understanding of this information. The [facility] psychosocial assessment consent form has been explained to patient and has been signed. Pt is completing this evaluation with brother (David) in the Outpatient setting. NANCYK educated pt on the benefits of completing/filing advanced directives and resources were offered. Pt identifies with [employer] rastafarian. Pt confirms being a [place] Citizen. Pt.'s primary language is American. Pt confirms the ability to read,write, and understand American. Pt denies potential donors. Donor cards and [...] has valid license, does not regularly drive ([facility] recommends that he not to drive). [...] related disease etoh cirrohosis April dx in [facility] for thirty days. Pt reports [...] as well as referred him to pre early childhood services coordinator. Pt and support demonstrated moderate understanding [...] Patient's brother David is a self employed landscape contractor. Additional support includes his other brother Tyshawn and his Mary live fifteen minutes away. Of note Mary is a web interface developer for a [employer] is available to assist supervisor finishing department. He confirms being comfortable asking for help. [...] in 2010, he was employed by the [employer]. He has access to SSDI payment (SSDI starts in November) in regards to financial means pre/ post-transplant. Pt confirms (meeting bills currently, ) being able to meet daily needs. Patient's brother asking for additional information on community resources, food stamps and [place]. Refer him to pt.'s dialysis center and the [facility]. Hereports access to Medicaid. Pt. denies [...] court ordered treatment after a DUI charge [facility] in [place], court ordered treatment in 2001 and in [...] by patient from his primary medical provider- BALL MILL OPERATOR patient was noted as attending an alcohol [...] He was provided with local AOD resources, [facility] AOD informational packet. Pt was referred for [...] new visit Date of service: 10/12/2018 -Referring academy education director for today's consult: -Primary Care Provider: Zuly Bruno CC: Chief Complaint Patient presents with Liver Recipient Evaluation History of Present Illness George Styles is a 48 y.o. male who presents to the [facility] liver transplant surgery clinic today for evaluation [...] processes progressing rapidly Unknown * Elisa Tiwari, ANALYTIC PROGRAMMER - 10/12/2018 10:00 AM EST Timed up and go 9.9 seconds Strap Buckler Machine Left 52.8 pounds Right 44.9 pounds Waist circ 38.5 inches * Sophie Cary, RN - 10/12/2018 10:00 AM EST Formatting of this note may be different from the original. Patient George Styles ([id number]), accompanied by his brother, was seen on [...] presented at liver patient progress committee on [place] and will be discussed by the multidisciplinary [...] any further questions. Sophie DON, RN Liver Program Management Manager Etiology: ETOH HCC: No ETOH: Yes Last [...] Yovani Orr MD [address] [address] Status Reason Specialty Diagnoses / Procedures Referred By Contact Referred To Contact New Request Diagnoses Cirrhosis of liver with ascites, unspecified hepatic cirrhosis type Procedures US ABDOMEN RUQ/LIVER/GB Yovani Orr MD [address] [address] Specialty Diagnoses / Procedures Referred By Contac t Referred To Contact Diagnoses FAYE (acute kidney injury) Procedures CT ABDOMEN/PELVIS WITHOUT CONTRAST CHG CT SCAN,ABDOMENT AND PELVIS,W/O CONTRAST Central Scheduling [address] [place] [phone] Referral ID Status Reason Start Date Expiration Date V isits Requested Visits Authorized [id number] Pending Review 05/16/2022 06/10/2023 1 1 Specialty Diagnoses / Procedures Referred By Contac t Referred To Contact Diagnoses Other hydronephrosis Procedures FLUORO IMAGING FOR UROLOGY Ryan Yepez MD [address] [facility] [address] [place] [address] Referral ID Status Reason Start Date Expiration Date V isits Requested Visits Authorized [id number] New Request 07/07/2022 08/01/2023 1 1 Specialty Diagnoses / Procedures Referred By Contac t Referred To Contact Procedures DIRECT ADMIT REQUEST Steve Latham MBBS [address] [place] [address] Referral ID Status Reason Start Date Expiration Date V isits Requested Visits Authorized [id number] New Request 08/28/2023 09/21/2024 1 1 Advance Directives No Advanced Directives Records FoundDocuments on File Type Date Recorded Patient Treasury Assistant Expl anation Advance Directives and Living Will Power of Technical Sales Representatives Latest Code Status on File Code Status [...] Yovani Orr MD [address] [address] Status Reason Specialty Diagnoses / Procedures Referre d By Contact Referred To Contact Denied Diagnoses Alcoholic cirrhosis, unspecified whether ascites present Pre-transplant evaluation for liver transplant Procedures MRI ABDOMEN WITH CONTRAST TX MRI, ABDOMEN W/CONTRAST Yovani Orr MD [address] [address] Reason Comments Liver Recipient Evaluation Status Reason Specialty Diagnoses / Procedures Referred By Contact Referred To Contact New Request Transplant / Transplant Surgery Procedures PRE NEW PATIENT Yovani Orr MD [address] [address] Alfredito Restrepo MD [address] [place] [address] Reason Comments Reschedule Reason Comments Outside Medical Records Request Reason Comments Social Work Follow-up Reason Comments Kidney Stone Specialty Diagnoses / Procedures Referred By Contac t Referred To Contact Diagnoses Obstructing kidney stone, s/p kidney transplant 2019 Daya Saldana MD [address] [place] [address] [facility] [address] [place] [address] Referral ID Status Reason Start Date Expiration Date Visits Re quested Visits Authorized [id number] 1 1 Reason Comments Follow-up Reason Comments Kidney Recipient Follow-up Liver Recipient Follow-up Reason Comments Consult Reason Comments New Patient Hospital follow up Specialty Diagnoses / Procedures Referred By Contac t Referred To Contact Urology Diagnoses hosp fu with [address] prior Procedures NEW TO DOC/RET PATIENT Zuly Bruno CNP [address] [place] [address] Ryan Yepez MD [facility] [address] [place] [address] Referral ID Status Reason Start Date Expiration Date Visits Re quested Visits Authorized [id number] Closed 06/27/2022 07/22/2023 1 1 Specialty Diagnoses / Procedures Referred By Socorroac t Referred To Contact Diagnoses FAYE (acute kidney injury) Procedures CT ABDOMEN/PELVIS WITHOUT CONTRAST CHG CT SCAN,ABDOMENT AND PELVIS,W/O CONTRAST Central Scheduling [address] [place] [phone] Referral ID Status Reason Start Date Expiration Date V isits Requested Visits Authorized [id number] Pending Review 05/16/2022 06/10/2023 1 1 Reason Comments Follow-up Specialty Diagnoses / Procedures Referred By Contac t Referred To Contact Urology Diagnoses 1 week fu post NT clamp Procedures RETURN PATIENT Zuly Bruno CNP [address] [place] [address] Ryan Yepez MD [address] [employer] [facility] [address] [place] [address] Referral ID Status Reason Start Date Expiration Date Visits Requested Visits Authorized [id number] Authorized - 07/07/2022 08/01/2023 2 2 Specialty Diagnoses / Procedures Referred By Deni edwards Referred To Contact Diagnoses Other hydronephrosis Procedures FLUORO IMAGING FOR UROLOGY Ryan Yepez MD [address] [facility] [address] [place] [address] Referral ID Status Reason Start Date Expiration Date V isits Requested Visits Authorized [id number] New Request 07/07/2022 08/01/2023 1 1 Specialty Diagnoses / Procedures Referred By Deni edwards Referred To Contact Urology Diagnoses 1 week fu post NT clamp Procedures RETURN PATIENT Zuly Bruno, BALL MILL OPERATOR [address] [place] [address] Ryan Yepez MD [address] [facility] [address] [place] [address] Referral ID Status Reason Start Date Expiration Date Visits Re quested Visits Authorized [id number] Closed 07/07/2022 08/01/2023 2 2 Reason Comments Liver Recipient Follow-up Reason Comments Kidney Recipient Follow-up Reason Comments Kidney Recipient Follow-up Specialty Diagnoses / Procedures Referred By Deni edwards Referred To Contact Diagnoses Kidney replaced by transplant Steve Latham MBBS [address] [place] [address] [facility] [address] [place] [address] Referral ID Status Reason Start Date Expiration Date Visits Re quested Visits Authorized [id number] 1 1 (unrecognized sect ion and content) No Status Records FoundNo Status Records FoundNo Status Records FoundNo Status Records FoundNo Status Records FoundNo Status Records Found INFORMATION SOURCE (unrecogn ized section and content) DATE CREATED AUTHOR 01/07/2020 Karlie ariza DATE CREATED AUTHOR AUTHOR'S ORGANIZ ATION 01/27/2021 [facility] DATE CREATED AUTHOR AUTHOR'S ORGANIZ ATION 04/13/2023 [facility] DATE CREATED AUTHOR AUTHOR'S ORGANIZ ATION 05/11/2023 [facility] DATE CREATED AUTHOR AUTHOR'S ORGANIZ ATION 10/26/2023 [facility] DATE CREATED AUTHOR AUTHOR'S ORGANIZ ATION 11/05/2023 [facility] dicdc Specialists EPIC Care Teams (unrecognized sec tion and content) Metallurgical Laboratory Assistant Relationship Specialty Start Date End Date Zuly Bruno CNP PCP - General 07/19/18 Comfort Rivera [facility] [address] [facility] [address] [place] [address] Pharmacist Pharmacist 05/16/20 Angel Carpio [facility],PharmD Pharmacist Pharmacist 05/16/20 Te Leigh [facility],PharmD Pharmacist Pharmacist 01/09/21 Metallurgical Laboratory Assistant Relationship Specialty Start Date End Date Zuly Bruno CNP PCP - General 07/19/18 Com[place] Rivera [facility] [address] [facility] [address] [place] [address] Pharmacist Pharmacist 05/16/20 Angel Carpio [facility],PharmD Pharmacist Pharmacist 05/16/20 Te Leigh [facility],PharmD Pharmacist Pharmacist 01/09/21 Metallurgical Laboratory Assistant Relationship Specialty Start Date End Date Zuly Bruno CNP PCP - General 07/19/18 Metallurgical Laboratory Assistant Relationship Specialty Start Date End Date Zuly Bruno CNP PCP - General 07/19/18 Metallurgical Laboratory Assistant Relationship Specialty Start Date End Date Zuly Bruno CNP PCP - General 07/19/18 Metallurgical Laboratory Assistant Relationship Specialty Start Date End Date Zuly Bruno CNP PCP - General 07/19/18 Metallurgical Laboratory Assistant Relationship Specialty Start Date End Date Zuly Bruno CNP PCP - General 07/19/18 Metallurgical Laboratory Assistant Relationship Specialty Start Date End Date Zuly Bruno CNP PCP - General 07/19/18 Metallurgical Laboratory Assistant Relationship Specialty Start Date End Date Zuly Bruno CNP PCP - General 07/19/18 Metallurgical Laboratory Assistant Relationship Specialty Start Date End Date Zuly Bruno CNP PCP - General 07/19/18 Metallurgical Laboratory Assistant Relationship Specialty Start Date End Date Zuly Bruno CNP PCP - General 07/19/18 Metallurgical Laboratory Assistant Relationship Specialty Start Date End Date Zuly Bruno CNP PCP - General 07/19/18 Metallurgical Laboratory Assistant Relationship Specialty Start Date End Date Zuly Bruno CNP PCP - General 07/19/18 Metallurgical Laboratory Assistant Relationship Specialty Start Date End Date Zuly Bruno CNP PCP - General 07/19/18 Metallurgical Laboratory Assistant Relationship Specialty Start Date End Date LexiesylvesterlatishaZuly tipton CNP PCP - General 07/19/18 Metallurgical Laboratory Assistant Relationship Specialty Start Date End Date Lexiesylvesterjose eZuly ROB PCP - General 07/19/18 Metallurgical Laboratory Assistant Relationship Specialty Start Date End Date Zuly Bruno CNP PCP - General 07/19/18 Evan White DO [address] [place], [place] [id number] Infectious Disease Infectious Disease 09/09/23 Metallurgical Laboratory Assistant Relationship Specialty Start Date End Date Zuly Bruno CNP PCP - General 07/19/18 Evan White DO [address] [place], [place] [id number] Infectious Disease Infectious Disease 09/09/23 Metallurgical Laboratory Assistant Relationship Specialty Start Date End Date Zuly BrunoROB PCP - General 07/19/18 Evan White DO [address] [place], [place] [id number] Infectious Disease Infectious Disease 09/09/23 Scheduled Active and Recently Administ ered Medications (unrecognized section and content) Medication Order 05/18/2022 05/19/2022 05/20/2022 allopurinol (ZYLOPRIM) tablet 100 mg 100 mg, Oral, DAILY, First dose (after last modification) on 05/17/22 at 0900, Until Discontinued 08 (Given - Provider: Mel Hampton RN) 08 (Given - Provider: Josey Branu RN) 930 (Given - Provider: Leon Cook RN) amLODIPine (NORVASC) tablet 5 mg 5 mg, Oral, DAILY, First dose on Thu05/16/22 at 0900, Until Discontinued 08 (Given - Provider: Mel Hampton RN) 08 (Given - Provider: Josey Braun RN) 09 (Given - Provider: Loen Cook, SAMI) aspirin chewable tablet 81 mg 81 mg, [...] Braun RN) 0932 (Given - Provider: Leon Cook, SAMI) gabapentin (NEURONTIN) capsule 400 mg 400 mg, [...] Braun, SAMI)1754 (Given - Provider: Josey Braun, RN)205 (Given - Provider: Carolyn Isaac RN) 0742 (Given - Provider: Leon Cook RN)1502 (Given - Provider: Leon Cook, SAMI) losartan (COZAAR) tablet 50 mg 50 mg, [...] in half and each half swallowed separately. 175 (Given - Provider: Josey Braun RN) senna [...] RN) 0931 (Given - Provider: Leon Cook, SAMI)2100 (Canceled Entry - Provider: System Discharge - [...] Provider: Carolyn Isaac RN)1823 (Restarted - Provider: Carolny Isaac RN)192 (Rate/Dose Verify - Provider: Carolyn Isaac RN) [...] Carolyn Isaac, SAMI)0806 (Given - Provider: Mel Hampton RN) 0825 (See Alternative - Provider: Josey Braun RN)2104 (See Alternative - Provider: Carolyn Isaac, SAMI) sodium chloride 0.9% IV solution 250 mL [...] Holden RN) 08 (Given - Provider: Terra Heart RN) 0957 [...] RN) 0829 (Given - Provider: Terra Heart, RN) 0957 (Given - Provider: Cheyanne Mcdonough, [...] RN) 0958 (Given - Provider: Cheyanne Mcdonough, RN) Sulfamethoxazole-trime thoprim (BACTRIM DS) 800-160 MG per [...] BE BASED ON THE PRIMARY CLINICAL RECORDS. [facility]. provides no warranty or guarantee of the accuracy or completeness of information in this document.
[2023-12-17 07:07] LABS: Basophils Percent Auto 0.5 % (0.2-2.0); Eosinophils Absolute Auto 0.1 10^3/uL (0.0-0.7); Eosinophils Percent Auto 2.9 % (0.9-7.0); Hematocrit 43.8 % (42.0-54.0); Hemoglobin 14.1 g/dL (14.0-18.0); Lymphocytes Absolute Auto 1.6 10^3/uL (1.2-3.8); Lymphocytes Percent Auto 43.4 % (20.5-60.0); Mean Corpuscular HGB Conc 32.2 g/dL (29.9-35.2); Mean Corpuscular Hemoglobin 28.5 pg (25.9-34.0); Mean Corpuscular Volume 88.5 fL (80.0-94.0); Mean Platelet Volume 10.2 fL (9.5-13.5); Monocytes Absolute Auto 0.4 10^3/uL (0.3-0.8); Monocytes Percent Auto 10.4 % (1.7-12.0); Neutrophils Absolute Auto 1.6 10^3/uL (1.4-6.5); Neutrophils Percent Auto 42.8 % (43.0-75.0); Platelet Count 203 10^3/uL (150-450); Red Blood Count 4.95 10^6/uL (4.70-6.10); Red Cell Distribution Width 13.8 % (11.0-15.0); White Blood Count 3.8 10^3/uL (4.0-11.0)
[2023-12-17 07:33] LABS: Creatinine Urine Random 135.36 mg/dL (20.00-300.00); Protein Creatinine Ratio Urine 0.13
[2023-12-17 07:34] LABS: Alanine Aminotransferase 32 U/L (16-63); Albumin Level 3.8 g/dL (3.4-5.0); Alkaline Phosphatase 93 U/L (46-116); Aspartate Amino Transferase 22 U/L (15-37); BUN Creatinine Ratio 11.6; Bilirubin Direct 0.3 mg/dL (0.0-0.2); Bilirubin Total 2.2 mg/dL (0.2-1.0); Calcium 9.5 mg/dL (8.5-10.1); Chloride 107 mmol/L (98-107); Estimated GFR (African America >60 (>=60); Estimated GFR (Non-African Ame 51 (>=60); Gamma Glutamyl Transpeptidase 16 U/L (15-85); Glucose 103 mg/dL (74-106); Magnesium 1.9 mg/dL (1.8-2.4); Phosphorus 4.3 mg/dL (2.6-4.7); Sodium 143 mmol/L (136-145)
[2023-12-21 05:09] LABS: Tacrolimus (FK506), Blood 5.8 ng/mL (2.0-20.0)
== END 2023-12-17 06:38 | disposition home or self-care (01) ==
LOC: LAB 06:39
PROVIDERS: PCP Nurse Practitioner
DX: R79.9 Abnormal finding of blood chemistry, unspecified (principal); Z94.0 Kidney transplant status; Z48.298 Encounter for aftercare following other organ transplant; D84.9 Immunodeficiency, unspecified; Z94.4 Liver transplant status; B39.9 Histoplasmosis, unspecified
CPT/HCPCS: 36415; 80048; 80189; 80197; 82042; 82247; 82248; 82570; 82977; 83735; 84075; 84100; 84156; 84450; 84460; 85025

== ENCOUNTER 2023-12-25 06:44 | Outpatient (OUT) | payer MEDICARE, MEDICAID, SELFPAY ==
--- OUTSIDE RECORDS SUMMARY | 2023-12-25 06:51 | XMS_ITS | CCD ---
Author Name Unknown Address [address] [place] [address] Organization [facility] Care Team Providers Care Helminthology Teacher Name Role Phone Kiana Zuly Unavailable Unavailable [...] Unavailable AICHHOLZ, ZULY Primary Care Unavailable Aichholz [facility], [facility] Primary Care Provider Miguel HComfort Unavailable Shirin RPh,PharmD, Angel Unavailable Unavailab makayla Leigh RP,PharmD, Te Unavailable Unavai lable Aicholz [facility] Primary Care Provider MIGUEL CARDONA Attending Unavailable MISC, DR BURCH Admitting Unavailable MISC, DR BURCH Consulting Unavailable AICHHOLZ, SAP GATHERER ZULY Primary Care Unavailable MISC, DR BURCH Attending Unavailable MISC, DR BURCH Admitting Unavailable MISC, DR BURCH Consulting Unavailable AICHHOLZ, SAP GATHERER ZULY Primary Care Unavailable MISC, DR BURCH Attending Unavailable ARCELIA PIZARRO Consulting Unavailable KE BURNHAM Attending Unavailable KE BURNHAM Admitting Unavailable DR MÓNICA JIMENEZ Consulting Unavailable AICHHOLZ, SAP GATHERER ZULY Primary Care Unavailable KE BURNHAM Consulting Unavailable MISC, DR DOCTOR Consulting Unavailable MISC, DR DOCTOR Attending Unavailable AICHHOLZ, [facility] ZULY Primary Care Unavailable MISC, DR DOCTOR Admitting Unavailable MISC, DR DOCTOR Consulting Unavailable MISC, DR DOCTOR Attending Unavailable AICHHOLZ, [facility] ZULY Primary Care Unavailable MISC, DOCTOR Admitting Unavailable MISC, DR DOCTOR Consulting Unavailable AICHHOLZ, [facility] ZULY Primary Care Unavailable MISC, DR DOCTOR Admitting Unavailable MISC, DR DOCTOR Attending Unavailable MELINDA, DR GEORGE Munoz Consulting Unavailable MELINDA, DR GEORGE Munoz Attending Unavailable AICHHOLZ, [facility] ZULY Primary Care Unavailable MELINDA, DR GEORGE Munoz Admitting Unavailable NAUN ., KE Consulting Unavailable MIRANDA, LYNDSAY Consulting Unavailable MELINDA, DR GEORGE Munoz Consulting Unavailable NAUN ., KE Attending Unavailable NAUN ., KE Admitting Unavailable AICHHOLZ, [facility] ZULY Primary Care Unavailable NAUN ., KE Consulting Unavailable GIAN HERRING Consulting Unavailable AICHHOLZ, SAP GATHERER ZULY Consulting Unavailable AICHOL, SAP GATHERER ZULY Attending Unavailable AICHHOL, SAP GATHERER ZULY Admitting Unavailable AICHHOL, [facility] ZULY Primary Care Unavailable MISC, DR Consulting Unavailable MISC, DOCTOR Admitting Unavailable MISC, DR DOCTOR Attending Unavailable AICHHOLZ, [facility] ZULY Primary Care Unavailable MISC, DR Consulting Unavailable MISC, DR DOCTOR Attending Unavailable MISC, DR DOCTOR Admitting Unavailable AICHHOLZ, [facility] ZULY Primary Care Unavailable MISC, DR BURCH Admitting Unavailable MISC, DR DOCTOR Consulting Unavailable MISC, DR DOCTOR Attending Unavailable AICHHOL, [facility] ZULY Primary Care Unavailable MISC, DR DOCTOR Admitting Unavailable MISC, DR DOCTOR Consulting Unavailable AICHHOL, [facility] ZULY Primary Care Unavailable MISC, DR DOCTOR Attending Unavailable MISC, DR DOCTOR Admitting Unavailable MISC, DR DOCTOR Consulting Unavailable AICHHOLZ, [facility] ZULY Primary Care Unavailable MISC, DR DOCTOR Attending Unavailable AICHOL, SAP GATHERER ZULY Consulting Unavailable AICHOL, SAP GATHERER ZULY Attending Unavailable AICHOL, [facility] ZULY Admitting Unavailable AICHOL, [facility] ZULY Primary Care Unavailable DR MÓNICA JIMENEZ Consulting Unavailable [facility] Primary Care Provider [phone] Cindy WHIPPLE Evan A Unavailable [phone] [facility] Primary Care Provider Evan White DO Unavailable [phone] AICHHOLZ, ZULY Primary Care Unavailable AICHHOLZ, ZULY [...] Propensity to adverse reactions (disorder) 8 [facility] Repository (20 sources) Shellfish-Derive d Products Propensity to adverse reactions to drug [address] [facility] (1 source) Shellfish Drug allergy (disorder) [facility] Repository Medications Current Medications Medication Drug Class(es) [...] 1 capsule by mouth once daily b [id number]-[id number] acid (NEPHROCAPS) 1 MG capsule Take 1 [...] itraconazole Fax results to: Dr. White - [phone] Transplant Neph - [phone] Each 0 09/10/2023 Active Drug or [...] ankle pain. 0 06/12/2020 06/12/2023 Discontinued lactulose 10384 mg powder for oral solution (19 sources) [...] needed. Start: 08-20-2022 take 1 capsule by [facility] every twelve hours Tacrolimus (PROGRAF) [...] needed. Start: 03-14-2022 take 1 capsule by [facility] every twelve hours tacrolimus (PROGRAF) [...] Start: 06-19-2022 take 1 capsule by mo [facility] once daily Tamsulosin HCl 0.4 MG capsule Take 1 capsule by mouth daily. 30 capsule 11 06/19/2022 Active Start: 05-23-2022 take 1 capsule by mo [facility] once daily Tamsulosin HCl 0.4 MG [...] Discontinued Start: 01-15-2023 take 2 tablets by [facility] once daily Allopurinol 100 MG [...] Start: 12-30-2021 take 2 tablets by mo [facility] once daily allopurinol 100 MG tablet Indications: Abnormal blood chemistry take 2 tablets by mouth once daily 180 tablet 3 12/30/2021 Active Start: 01-28-2021 take 2 tablets by [facility] once daily allopurinol 100 MG [...] (ROXICODONE) tablet 10 mg polyethylene glycol 3350 88223 mg powder for oral solution (20 sources) [...] ( K-PHOS NEUTRAL) tablet 1,000 mg sennosides, penitentiary 8.6 mg oral tablet (1 source) Start: [...] Coronary arteriosclerosis; 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: [Atherosclerotic heart disease of [place] coronary artery without angina pectoris] Onset: 04-13-2023 [...] therapy] Episodic Other aftercare (3 sources) Other intermediate manager (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; 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: [OTH REGIONAL EXTENSION SERVICE SPECIALIST 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 THERAPY] Onset: 07-06-2022 Episodic Other [...] 05-10-2020 05-10-2020 Episodic Other aftercare (1 source) care home (current) use of aspirin; 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: [REGIONAL EXTENSION SERVICE SPECIALIST CURRENT USE OF ASPIRIN] Onset: 06-20-2022 Episodic [...] Anion gap [Moles/Vol] 13 mmol/L Normal 7-17 [facility] Comment on above: Performed By: #### C HM7, MGO ####[facility] (DEFAULT)[address] [facility] [place] [address] Chloride [Moles/Vol] 111 mmol/L High 98-108 [facility] Comment on above: Performed By: #### C HM7, MGO ####[facility] (DEFAULT)[address] [place] [address] CO2 [Moles/Vol] 20 mmol/L Low 21-31 [facility] Comment on above: Performed By: #### C HM7, MGO ####[facility] (DEFAULT)[address] [place] [address] Creatinine [Mass/Vol] 1.13 mg/dL Normal 0.70-1.30 [facility] Comment on above: Performed By: #### Chinedu HM7, MGO ####[facility] (DEFAULT)[address] [place] [address] GFR/1.73 sq M.predicted among non-blacks MDRD (S/P/Bld) [Vol rate/Area] 78 mL/min/{1.73_m2} Normal >=60 [facility] Comment on above: Result Comment: Repo rted eGFR is based on the CKD-EPI 2020 equation using creatinine, age, and sex. Performed By: #### C HM7, MGO ####[facility] (DEFAULT)[address] [facility] [place] [address] Glucose [Mass/Vol] 109 mg/dL High 70-99 [facility] Comment on above: Performed By: #### C HM7, MGO ####[facility] (DEFAULT)[address] [place] [address] Osmolality [Osmolality] 295 mosm/kg Normal 278-305 [facility] Comment on above: Performed By: #### Chinedu HM7, MGO ####[facility] (DEFAULT)[address] [place] [address] Potassium [Moles/Vol] 4.3 mmol/L Normal 3.5-5.0 [facility] Comment on above: Performed By: #### C HM7, MGO ####[facility] (DEFAULT)[address] [facility] [place] [address] Sodium [Moles/Vol] 140 mmol/L Normal 135-145 [facility] Comment on above: Performed By: #### Chinedu HM7, MGO ####[facility] (DEFAULT)[address] [facility] [place] [address] Urea nitrogen [Mass/Vol] 16 mg/dL Normal 7-25 [facility] Comment on above: Performed By: #### Chinedu HM7, MGO ####[facility] (DEFAULT)[address] [facility] [place] [address] Urea nitrogen/Creatinine [Mass ratio] 14 mg/mg Normal [facility] Comment on above: Performed By: #### Chinedu HM7, MGO ####[facility] (DEFAULT)[address] [place] [address] Anion gap [Moles/Vol] 13 mmol/L 7 - 17 mmol/L [facility] Chloride [Moles/Vol] 111 mmol/L High 98 - 10 8 mmol/L [facility] CO2 [Moles/Vol] 20 mmol/L Low 21 - 31 mmol/L [facility] Creatinine [Mass/Vol] 1.13 mg/dL 0.70 - 1.30 mg/dL [facility] eGFR, CKD-EPI, [facility] 78 [facility] Glucose [Mass/Vol] 109 mg/dL High 70 - 99 mg/dL [facility] Interpretation and review of laboratory results Abnormal [facility] Osmolality Calc [Osmolality] 295 [facility] Potassium [Moles/Vol] 4.3 mmol/L 3.5 - 5.0 mmol/L [facility] Sodium [Moles/Vol] 140 mmol/L 135 - 145 mmol/L [facility] Urea nitrogen [Mass/Vol] 16 mg/dL 7 - 25 mg/dL [facility] Urea nitrogen/Creatinine [Mass ratio] 14 mg/mg [facility] GLUCOSE POCon 09-11-2023 Glucose [Mass/Vol] 108 mg/dL High 70 - 99 mg/dL [facility] Interpretation and review of laboratory results Abnormal [facility] POC Sample Type CAPBL [facility] Legionella sp identified Org specific cx Nom (Unsp spec)on 09-11-2023 Bacteria identified Cx Nom (Unsp spec) NO GROWTH DAY 7 OF 7 [facility] MAGNESIUMon 09-11-2023 Magnesium [Mass/Vol] 1.6 mg/dL Normal 1.6-2.6 [facility] Comment on above: Performed By: #### C 7, MGO ####[facility] (DEFAULT)[address] [place] [address] Interpretation and review of laboratory results Normal [facility] Magnesium [Mass/Vol] 1.6 mg/dL 1.6 - 2 .6 mg/dL [facility] No Panel Informationon 09-11 [facility] TACROLIMUS LEVEL, TROUGH (NE E DRUG LEVEL)on 09-11-2023 Interpretation and review of laboratory results Normal [facility] Tacrolimus (Bld) [Mass/Vol] 11.5 ng/mL [facility] Tacrolimus, Trough 11.5 ng/mL Normal Bone Susana ow Transplant: 4.0-12.0, Therapeutic: 5.0-15.0 [facility] Comment on above: Order Comment: Pleas e draw at specified interval PRIOR to dose. Do not hold dose to wait for level. Specimens batched twice per day, (M-F) and once per day weekendsMethod performed is a chemiluminescent microparticle immunoasssay on the [employer] Regulatory Leader i2000.The range is based on experience at [facility] and users should be aware that target concentrations vary widely depending on concomitant therapy, time post-transplant, and desired degree of immunosuppression. Performed By: #### T ACRO ####[facility] (DEFAULT)[address] [facility] [place] [address] CBC,PLATELETSon 09-10-2023 Hematocrit (Bld) [Volume fraction] 40.0 % Normal 39.6-48.8 [facility] Comment on above: Performed By: #### H EMOGC ####[facility] (DEFAULT)[address] [facility] [place] [address] Hemoglobin (Bld) [Mass/Vol] 12.7 g/dL Low 13.4-16.8 [facility] Comment on above: Performed By: #### H EMOGC ####[facility] (DEFAULT)[address] [facility] [place] [address] MCV (RBC) [Entitic vol] 86.0 fL Normal 79.0-94.5 [facility] Comment on above: Performed By: #### H EMOGC ####[facility] (DEFAULT)[address] [facility] [place] [address] Mean Cell Hgb 27.3 pg Normal 26.1-33.3 [facility] Comment on above: Performed By: #### H EMOGC ####[facility] (DEFAULT)[address] [facility] [place] [address] Mean Cell Hgb Conc 31.8 g/dL Low 31.9-36.5 [facility] Comment on above: Performed By: #### H EMOGC ####[facility] (DEFAULT)[address] [facility] [place] [address] Platelet mean volume (Bld) [Entitic vol] 9.5 fL Normal 8.7-12.3 [facility] Comment on above: Performed By: #### H EMO ####[facility] (DEFAULT)[address] [facility] [place] [address] Platelets (Bld) [#/Vol] 225 10*3/uL Normal 146-337 [facility] Comment on above: Performed By: #### H EMO ####[facility] (DEFAULT)[address] [place] [address] RBC (Bld) [#/Vol] 4.65 10*6/uL Normal 4.38-5.83 [facility] Comment on above: Performed By: #### H EMO ####[facility] (DEFAULT)[address] [place] [address] RBC Distribution 13.9 % Normal 10.9-14.3 [facility] Comment on above: Performed By: #### H EMO ####[facility] (DEFAULT)[address] [place] [address] WBC (Bld) [#/Vol] 6.52 10*3/uL Normal 3.73-10.10 [facility] Comment on above: Performed By: #### H EMO ####[facility] (DEFAULT)[address] [place] [address] Erythrocyte distribution width (RBC) [Ratio] 13.9 % 10.9 - 14.3 % [facility] Hematocrit (Bld) [Volume fraction] 40.0 % 39.6 - 48.8 % [facility] Hemoglobin (Bld) [Mass/Vol] 12.7 g/dL Low 13.4 - 16.8 g/dL [facility] Interpretation and review of laboratory results Abnormal [facility] MCH (RBC) [Entitic mass] 27.3 pg 26.1 - 33.3 pg [facility] MCHC (RBC) [Mass/Vol] 31.8 g/dL Low 31.9 - 36.5 g/dL [facility] MCV (RBC) [Entitic vol] 86.0 fL 79.0 - 94.5 fL [facility] Platelet mean volume (Bld) [Entitic vol] 9.5 fL 8.7 - 12.3 fL [facility] Platelets (Bld) [#/Vol] 225 10*3/uL 146 - 337 K/uL [facility] RBC (Bld) [#/Vol] 4.65 10*6/uL [facility] WBC (Bld) [#/Vol] 6.52 10*3/uL 3.73 - 10. 10 K/uL [facility] CHEM 7 (LYTES,BUN,CREA,GLUC) on 09-10-2023 Anion gap [Moles/Vol] 13 mmol/L Normal 7-17 [facility] Comment on above: Performed By: #### T ACRO #### [facility] (DEFAULT) [address] [address] Chloride [Moles/Vol] 111 mmol/L High 98-108 [facility] Comment on above: Performed By: #### T ACRO #### [facility] (DEFAULT) [address] [address] CO2 [Moles/Vol] 20 mmol/L Low 21-31 [facility] Comment on above: Performed By: #### T ACRO #### [facility] (DEFAULT) [address] [address] Creatinine [Mass/Vol] 1.27 mg/dL Normal 0.70-1.30 [facility] Comment on above: Performed By: #### T ACRO #### [facility] (DEFAULT) [address] [address] GFR/1.73 sq M.predicted among non-blacks MDRD (S/P/Bld) [Vol rate/Area] 68 mL/min/{1.73_m2} Normal >=60 [facility] Comment on above: Result Comment: Repo rted eGFR is based on the CKD-EPI 2020 equation using creatinine, age, and sex. Performed By: #### T ACRO #### [facility] (DEFAULT) [address] [place] [address] Glucose [Mass/Vol] 100 mg/dL High 70-99 [facility] Comment on above: Performed By: #### T ACRO #### [facility] (DEFAULT) [address] [place] [address] Osmolality [Osmolality] 293 mosm/kg Normal 278-305 [facility] Comment on above: Performed By: #### T ACRO #### [facility] (DEFAULT) [address] [place] [address] Potassium [Moles/Vol] 4.4 mmol/L Normal 3.5-5.0 [facility] Comment on above: Performed By: #### T ACRO #### [facility] (DEFAULT) [address] [place] [address] Sodium [Moles/Vol] 140 mmol/L Normal 135-145 [facility] Comment on above: Performed By: #### T ACRO #### [facility] (DEFAULT) [address] [place] [address] Urea nitrogen [Mass/Vol] 12 mg/dL Normal 7-25 [facility] Comment on above: Performed By: #### T ACRO #### [facility] (DEFAULT) [address] [place] [address] Urea nitrogen/Creatinine [Mass ratio] 9 mg/mg Normal [facility] Comment on above: Performed By: #### T ACRO #### [facility] (DEFAULT) [address] [place] [address] Anion gap [Moles/Vol] 13 mmol/L 7 - 17 mmol/L [facility] Chloride [Moles/Vol] 111 mmol/L High 98 - 10 8 mmol/L [facility] CO2 [Moles/Vol] 20 mmol/L Low 21 - 31 mmol/L [facility] Creatinine [Mass/Vol] 1.27 mg/dL 0.70 - 1.30 mg/dL [facility] eGFR, CKD-EPI, Male 69 - PINF [facility] Glucose [Mass/Vol] 100 mg/dL High 70 - 99 mg/dL [facility] Osmolality Calc [Osmolality] 293 [facility] Potassium [Moles/Vol] 4.4 mmol/L 3.5 - 5.0 mmol/L [facility] Sodium [Moles/Vol] 140 mmol/L 135 - 145 mmol/L [facility] Urea nitrogen [Mass/Vol] 12 mg/dL 7 - 25 mg/dL [facility] Urea nitrogen/Creatinine [Mass ratio] 9 mg/mg [facility] HEPATIC FUNCTION PANELon Albumin [Mass/Vol] 3.3 g/dL Low 3.5-5.0 [facility] Comment on above: Performed By: #### T ACRO #### [facility] (DEFAULT) [address] [place] [address] ALP [Catalytic activity/Vol] 143 U/L High 32-126 [facility] Comment on above: Performed By: #### T ACRO #### [facility] (DEFAULT) [address] [place] [address] ALT [Catalytic activity/Vol] 28 U/L Normal 10-52 [facility] Comment on above: Performed By: #### T ACRO #### [facility] (DEFAULT) [address] [place] [address] AST [Catalytic activity/Vol] 29 U/L Normal 10-39 [facility] Comment on above: Performed By: #### T ACRO #### [facility] (DEFAULT) [address] [place] [address] Bilirubin [Mass/Vol] 0.9 mg/dL Normal <1.5 [facility] Comment on above: Performed By: #### T ACRO #### [facility] (DEFAULT) [address] [place] [address] Bilirubin.indirect [Mass/Vol] 0.2 mg/dL Normal <0.3 [facility] Comment on above: Performed By: #### T ACRO #### [facility] (DEFAULT) [address] [place] [address] Protein [Mass/Vol] 6.8 g/dL Normal 6.4-8.3 [facility] Comment on above: Performed By: #### T ACRO #### [facility] (DEFAULT) [address] [place] [address] Albumin [Mass/Vol] 3.3 g/dL Low 3.5 - 5.0 g/dL [facility] ALP [Catalytic activity/Vol] 143 U/L High 32 - 126 U/L [facility] ALT [Catalytic activity/Vol] 28 U/L 10 - 52 U/L [facility] AST [Catalytic activity/Vol] 29 U/L 10 - 39 U/L [facility] Bilirubin [Mass/Vol] 0.9 mg/dL [facility] Bilirubin.direct [Mass/Vol] 0.2 mg/dL NINF - 0.3 mg/dL [facility] Protein [Mass/Vol] 6.8 g/dL 6.4 - 8.3 g/dL [facility] MAGNESIUMon 09-10-2023 Magnesium [Mass/Vol] 1.9 mg/dL Normal 1.6-2.6 [facility] Comment on above: Performed By: #### T ACRO #### [facility] (DEFAULT) [address] [place] [address] Interpretation and review of laboratory results Normal [facility] Magnesium [Mass/Vol] 1.9 mg/dL 1.6 - 2 .6 mg/dL [facility] No Panel Informationon 09-10 Interpretation and review of laboratory results Abnormal [facility] TACROLIMUS LEVEL, TROUGH (NE E DRUG LEVEL)Ordered By: Jimy Castillo on 09-10-2023 Interpretation and review of laboratory results Normal [facility] Tacrolimus (Bld) [Mass/Vol] 11.8 ng/mL [facility] TACROLIMUS LEVEL, TROUGH (NE E DRUG LEVEL)on 09-10-2023 Tacrolimus, Trough 11.8 ng/mL Normal Bone Susana ow Transplant: 4.0-12.0, Therapeutic: 5.0-15.0 [facility] Comment on above: Order Comment: Pleas e draw at specified interval PRIOR to dose. Do not hold dose to wait for level. Specimens batched twice per day, (M-F) and once per day weekends Method performed is a chemiluminescent microparticle immunoasssay on the [employer] Regulatory Leader i2000. The range is based on experience at [facility] and users should be aware that target concentrations vary widely depending on concomitant therapy, time post-transplant, and desired degree of immunosuppression. Performed By: #### T ACRO #### [facility] (DEFAULT) [address] [place] [address] CHEM 7 (LYTES,BUN,CREA,GLUC) on 09-09-2023 Anion gap [Moles/Vol] 14 mmol/L Normal 7-17 [facility] Comment on above: Performed By: #### C HM7, IPB, MGO ####[facility] (DEFAULT)[address] [place] [address] Chloride [Moles/Vol] 113 mmol/L High 98-108 [facility] Comment on above: Performed By: #### C HM7, IPB, MGO ####[facility] (DEFAULT)[address] [place] [address] CO2 [Moles/Vol] 18 mmol/L Low 21-31 [facility] Comment on above: Performed By: #### C HM7, IPB, MGO ####[facility] (DEFAULT)[address] [place] [address] Creatinine [Mass/Vol] 1.03 mg/dL Normal 0.70-1.30 [facility] Comment on above: Performed By: #### JO ANN GONG MGO ####[facility] (DEFAULT)[address] [facility] [place] [address] GFR/1.73 sq M.predicted among non-blacks MDRD (S/P/Bld) [Vol rate/Area] 87 mL/min/{1.73_m2} Normal >=60 [facility] Comment on above: Result Comment: Repo rted eGFR is based on the CKD-EPI 2020 equation using creatinine, age, and sex. Performed By: #### JO ANN GONG, MGO ####[facility] (DEFAULT)[address] [place] [address] Glucose [Mass/Vol] 106 mg/dL High 70-99 [facility] Comment on above: Performed By: #### JO ANN GONG, MGO ####[facility] (DEFAULT)[address] [place] [address] Osmolality [Osmolality] 294 mosm/kg Normal 278-305 [facility] Comment on above: Performed By: #### JO ANN GONG, MGO ####[facility] (DEFAULT)[address] [place] [address] Potassium [Moles/Vol] 4.0 mmol/L Normal 3.5-5.0 [facility] Comment on above: Performed By: #### JO ANN GONG, MGO ####[facility] (DEFAULT)[address] [facility] [place] [address] Sodium [Moles/Vol] 141 mmol/L Normal 135-145 [facility] Comment on above: Performed By: #### JO ANN GONG, MGO ####[facility] (DEFAULT)[address] [place] [address] Urea nitrogen [Mass/Vol] 10 mg/dL Normal 7-25 [facility] Comment on above: Performed By: #### JO ANN GONG MGO ####[facility] (DEFAULT)[address] [place] [address] Urea nitrogen/Creatinine [Mass ratio] 10 mg/mg Normal [facility] Comment on above: Performed By: #### JO ANN GONG MGO ####[facility] (DEFAULT)[address] [place] [address] Anion gap [Moles/Vol] 14 mmol/L 7 - 17 mmol/L [facility] Chloride [Moles/Vol] 113 mmol/L High 98 - 10 8 mmol/L [facility] CO2 [Moles/Vol] 18 mmol/L Low 21 - 31 mmol/L [facility] Creatinine [Mass/Vol] 1.03 mg/dL 0.70 - 1.30 mg/dL [facility] eGFR, CKD-EPI, Male 87 - PINF [facility] Glucose [Mass/Vol] 106 mg/dL High 70 - 99 mg/dL [facility] Interpretation and review of laboratory results Abnormal [facility] Osmolality Calc [Osmolality] 294 [facility] Potassium [Moles/Vol] 4.0 mmol/L 3.5 - 5.0 mmol/L [facility] Sodium [Moles/Vol] 141 mmol/L 135 - 145 mmol/L [facility] Urea nitrogen [Mass/Vol] 10 mg/dL 7 - 25 mg/dL [facility] Urea nitrogen/Creatinine [Mass ratio] 10 mg/mg [facility] MAGNESIUMon 09-09-2023 Magnesium [Mass/Vol] 1.6 mg/dL Normal 1.6-2.6 [facility] Comment on above: Performed By: #### JO ANN GONG, MGO ####[facility] (DEFAULT)[address] [place] [address] Magnesium [Mass/Vol] 1.6 mg/dL 1.6 - 2 .6 mg/dL [facility] No Panel Informationon 09-09 Interpretation and review of laboratory results Normal [facility] PHOSPHATE, INORGANICon 09-09 Phosphorous 3.8 mg/dL Normal 2.2-4.6 [facility] Comment on above: Performed By: #### C HM7, IPB, MGO ####[facility] (DEFAULT)[address] [place] [address] Phosphate [Mass/Vol] 3.8 mg/dL 2.2 - 4 .6 mg/dL [facility] TACROLIMUS LEVEL, TROUGH (NE E DRUG LEVEL)on 09-09-2023 Interpretation and review of laboratory results Normal [facility] Tacrolimus (Bld) [Mass/Vol] 9.2 ng/mL [facility] Tacrolimus, Trough 9.2 ng/mL Normal Bone Susana ow Transplant: 4.0-12.0, Therapeutic: 5.0-15.0 [facility] Comment on above: Order Comment: Pleas e draw at specified interval PRIOR to dose. Do not hold dose to wait for level. Specimens batched twice per day, (M-F) and once per day weekendsMethod performed is a chemiluminescent microparticle immunoasssay on the [employer] i2000.The range is based on experience at [facility] and users should be aware that target concentrations vary widely depending on concomitant therapy, time post-transplant, and desired degree of immunosuppression. Performed By: #### H EMO #### [facility] (DEFAULT) [address] [place] [address] CBC,PLATELETSon 09-08-2023 Hematocrit (Bld) [Volume fraction] 36.1 % Low 39.6-48.8 [facility] Comment on above: Performed By: #### T ACRO #### [facility] (DEFAULT) [address] [place] [address] Hemoglobin (Bld) [Mass/Vol] 11.6 g/dL Low 13.4-16.8 [facility] Comment on above: Performed By: #### T ACRO #### [facility] (DEFAULT) [address] [place] [address] MCV (RBC) [Entitic vol] 85.1 fL Normal 79.0-94.5 [facility] Comment on above: Performed By: #### T ACRO #### [facility] (DEFAULT) [address] [place] [address] Mean Cell Hgb 27.4 pg Normal 26.1-33.3 [facility] Comment on above: Performed By: #### T ACRO #### [facility] (DEFAULT) [address] [address] Mean Cell Hgb Conc 32.1 g/dL Normal 31.9-36.5 [facility] Comment on above: Performed By: #### T ACRO #### [facility] (DEFAULT) [address] [address] Platelet mean volume (Bld) [Entitic vol] 9.5 fL Normal 8.7-12.3 [facility] Comment on above: Performed By: #### T ACRO #### [facility] (DEFAULT) [address] [address] Platelets (Bld) [#/Vol] 182 10*3/uL Normal 146-337 [facility] Comment on above: Performed By: #### T ACRO #### [facility] (DEFAULT) [address] [place] [address] RBC (Bld) [#/Vol] 4.24 10*6/uL Low 4.38-5.83 [facility] Comment on above: Performed By: #### T ACRO #### [facility] (DEFAULT) [address] [address] RBC Distribution 13.6 % Normal 10.9-14.3 [facility] Comment on above: Performed By: #### T ACRO #### [facility] (DEFAULT) [address] [place] [address] WBC (Bld) [#/Vol] 4.59 10*3/uL Normal 3.73-10.10 [facility] Comment on above: Performed By: #### T ACRO #### [facility] (DEFAULT) [address] [place] [address] Erythrocyte distribution width (RBC) [Ratio] 13.6 % 10.9 - 14.3 % [facility] Hematocrit (Bld) [Volume fraction] 36.1 % Low 39.6 - 48.8 % [facility] Hemoglobin (Bld) [Mass/Vol] 11.6 g/dL Low 13.4 - 16.8 g/dL [facility] Interpretation and review of laboratory results Abnormal [facility] MCH (RBC) [Entitic mass] 27.4 pg 26.1 - 33.3 pg [facility] MCHC (RBC) [Mass/Vol] 32.1 g/dL 31.9 - 36.5 g/dL [facility] MCV (RBC) [Entitic vol] 85.1 fL 79.0 - 94.5 fL [facility] Platelet mean volume (Bld) [Entitic vol] 9.5 fL 8.7 - 12.3 fL [facility] Platelets (Bld) [#/Vol] 182 10*3/uL 146 - 337 K/uL [facility] RBC (Bld) [#/Vol] 4.24 10*6/uL Low [facility] WBC (Bld) [#/Vol] 4.59 10*3/uL 3.73 - 10. 10 K/uL [facility] CHEM 7 (LYTES,BUN,CREA,GLUC) on 09-08-2023 Anion gap [Moles/Vol] 12 mmol/L Normal 7-17 [facility] Comment on above: Performed By: #### H EMOGC #### [facility] (DEFAULT) [address] [place] [address] Chloride [Moles/Vol] 113 mmol/L High 98-108 [facility] Comment on above: Performed By: #### H EMO #### [facility] (DEFAULT) [address] [address] CO2 [Moles/Vol] 21 mmol/L Normal 21-31 [facility] Comment on above: Performed By: #### H EMO #### [facility] (DEFAULT) [address] [address] Creatinine [Mass/Vol] 1.14 mg/dL Normal 0.70-1.30 [facility] Comment on above: Performed By: #### H EMO #### [facility] (DEFAULT) [address] [address] GFR/1.73 sq M.predicted among non-blacks MDRD (S/P/Bld) [Vol rate/Area] 77 mL/min/{1.73_m2} Normal >=60 [facility] Comment on above: Result Comment: Repo rted eGFR is based on the CKD-EPI 2020 equation using creatinine, age, and sex. Performed By: #### H EMO #### [facility] (DEFAULT) [address] [address] Glucose [Mass/Vol] 107 mg/dL High 70-99 [facility] Comment on above: Performed By: #### H EMO #### [facility] (DEFAULT) [address] [address] Osmolality [Osmolality] 296 mosm/kg Normal 278-305 [facility] Comment on above: Performed By: #### H EMOGC #### [facility] (DEFAULT) [address] [address] Potassium [Moles/Vol] 3.9 mmol/L Normal 3.5-5.0 [facility] Comment on above: Performed By: #### H EMOGC #### [facility] (DEFAULT) [address] [place] [address] Sodium [Moles/Vol] 142 mmol/L Normal 135-145 [facility] Comment on above: Performed By: #### [facility] #### [facility] (DEFAULT) [address] [place] [address] Urea nitrogen [Mass/Vol] 11 mg/dL Normal 7-25 [facility] Comment on above: Performed By: #### H [facility] #### [facility] (DEFAULT) [address] [place] [address] Urea nitrogen/Creatinine [Mass ratio] 10 mg/mg Normal [facility] Comment on above: Performed By: #### H [facility] #### [facility] (DEFAULT) [address] [place] [address] Anion gap [Moles/Vol] 12 mmol/L 7 - 17 mmol/L [facility] Chloride [Moles/Vol] 113 mmol/L High 98 - 10 8 mmol/L [facility] CO2 [Moles/Vol] 21 mmol/L 21 - 31 mmol/L [facility] Creatinine [Mass/Vol] 1.14 mg/dL 0.70 - 1.30 mg/dL [facility] eGFR, CKD-EPI, Male 77 - PINF [facility] Glucose [Mass/Vol] 107 mg/dL High 70 - 99 mg/dL [facility] Osmolality Calc [Osmolality] 296 [facility] Potassium [Moles/Vol] 3.9 mmol/L 3.5 - 5.0 mmol/L [facility] Sodium [Moles/Vol] 142 mmol/L 135 - 145 mmol/L [facility] Urea nitrogen [Mass/Vol] 11 mg/dL 7 - 25 mg/dL [facility] Urea nitrogen/Creatinine [Mass ratio] 10 mg/mg [facility] HEPATIC FUNCTION PANELon Albumin [Mass/Vol] 2.9 g/dL Low 3.5-5.0 [facility] Comment on above: Performed By: #### H [facility] #### [facility] (DEFAULT) [address] [place] [address] ALP [Catalytic activity/Vol] 133 U/L High 32-126 [facility] Comment on above: Performed By: #### H EMO #### [facility] (DEFAULT) [address] [place] [address] ALT [Catalytic activity/Vol] 23 U/L Normal 10-52 [facility] Comment on above: Performed By: #### H EMO #### [facility] (DEFAULT) [address] [place] [address] AST [Catalytic activity/Vol] 23 U/L Normal 10-39 [facility] Comment on above: Performed By: #### H EMO #### [facility] (DEFAULT) [address] [place] [address] Bilirubin [Mass/Vol] 0.8 mg/dL Normal <1.5 [facility] Comment on above: Performed By: #### H EMO #### [facility] (DEFAULT) [address] [place] [address] Bilirubin.indirect [Mass/Vol] 0.2 mg/dL Normal <0.3 [facility] Comment on above: Performed By: #### H EMO #### [facility] (DEFAULT) [address] [place] [address] Protein [Mass/Vol] 5.9 g/dL Low 6.4-8.3 [facility] Comment on above: Performed By: #### H EMO #### [facility] (DEFAULT) [address] [place] [address] Albumin [Mass/Vol] 2.9 g/dL Low 3.5 - 5.0 g/dL [facility] ALP [Catalytic activity/Vol] 133 U/L High 32 - 126 U/L [facility] ALT [Catalytic activity/Vol] 23 U/L 10 - 52 U/L [facility] AST [Catalytic activity/Vol] 23 U/L 10 - 39 U/L [facility] Bilirubin [Mass/Vol] 0.8 mg/dL NINF - 1.5 mg/dL [facility] Bilirubin.direct [Mass/Vol] 0.2 mg/dL NINF - 0.3 mg/dL [facility] Protein [Mass/Vol] 5.9 g/dL Low 6.4 - 8.3 g/dL [facility] MAGNESIUMon 09-08-2023 Magnesium [Mass/Vol] 1.8 mg/dL Normal 1.6-2.6 [facility] Comment on above: Performed By: #### H [facility] #### [facility] (DEFAULT) [address] [place] [address] Interpretation and review of laboratory results Normal [facility] Magnesium [Mass/Vol] 1.8 mg/dL 1.6 - 2 .6 mg/dL [facility] No Panel Informationon 09-08 Interpretation and review of laboratory results Abnormal [facility] PHOSPHATE, INORGANICon 09-08 Interpretation and review of laboratory results Normal [facility] Phosphate [Mass/Vol] 4.1 mg/dL 2.2 - 4 .6 mg/dL [facility] Phosphorous 4.1 mg/dL Normal 2.2-4.6 [facility] Comment on above: Performed By: #### H [facility] #### [facility] (DEFAULT) [address] [place] [address] TACROLIMUS LEVEL, TROUGH (NE E DRUG LEVEL)on 09-08-2023 Interpretation and review of laboratory results Normal [facility] Tacrolimus (Bld) [Mass/Vol] 8.5 ng/mL [facility] Tacrolimus, Trough 8.5 ng/mL Normal Bone Susana ow Transplant: 4.0-12.0, Therapeutic: 5.0-15.0 [facility] Comment on above: Order Comment: Pleas e draw at specified interval PRIOR to dose. Do not hold dose to wait for level. Specimens batched twice per day, (M-F) and once per day weekendsMethod performed is a chemiluminescent microparticle immunoasssay on the [employer] i2000.The range is based on experience at [facility] and users should be aware that target concentrations vary widely depending on concomitant therapy, time post-transplant, and desired degree of immunosuppression. Performed By: #### N ONGNNONFNA #### [facility] (DEFAULT) [address] [address] CBC,PLATELETSon 09-07-2023 Hematocrit (Bld) [Volume fraction] 37.1 % Low 39.6-48.8 [facility] Comment on above: Performed By: #### Vale UNDERWOOD #### [facility] (DEFAULT) [address] [address] Hemoglobin (Bld) [Mass/Vol] 11.9 g/dL Low 13.4-16.8 [facility] Comment on above: Performed By: #### Vale UNDERWOOD #### [facility] (DEFAULT) [address] [address] MCV (RBC) [Entitic vol] 86.5 fL Normal 79.0-94.5 [facility] Comment on above: Performed By: #### Vale UNDERWOOD #### [facility] (DEFAULT) [address] [address] Mean Cell Hgb 27.7 pg Normal 26.1-33.3 [facility] Comment on above: Performed By: #### Vale UNDERWOOD #### [facility] (DEFAULT) [address] [address] Mean Cell Hgb Conc 32.1 g/dL Normal 31.9-36.5 [facility] Comment on above: Performed By: #### Vale UNDERWOOD #### [facility] (DEFAULT) [address] [address] Platelet mean volume (Bld) [Entitic vol] 9.6 fL Normal 8.7-12.3 [facility] Comment on above: Performed By: #### G YASMINE #### [facility] (DEFAULT) [address] [place] [address] Platelets (Bld) [#/Vol] 176 10*3/uL Normal 146-337 [facility] Comment on above: Performed By: #### Vale UNDERWOOD #### [facility] (DEFAULT) [address] [place] [address] RBC (Bld) [#/Vol] 4.29 10*6/uL Low 4.38-5.83 [facility] Comment on above: Performed By: #### Vale UNDERWOOD #### [facility] (DEFAULT) [address] [place] [address] RBC Distribution 13.5 % Normal 10.9-14.3 [facility] Comment on above: Performed By: #### Vale UNDERWOOD #### [facility] (DEFAULT) [address] [place] [address] WBC (Bld) [#/Vol] 4.10 10*3/uL Normal 3.73-10.10 [facility] Comment on above: Performed By: #### Vale UNDERWOOD #### [facility] (DEFAULT) [address] [place] [address] Erythrocyte distribution width (RBC) [Ratio] 13.5 % 10.9 - 14.3 % [facility] Hematocrit (Bld) [Volume fraction] 37.1 % Low 39.6 - 48.8 % [facility] Hemoglobin (Bld) [Mass/Vol] 11.9 g/dL Low 13.4 - 16.8 g/dL [facility] Interpretation and review of laboratory results Abnormal [facility] MCH (RBC) [Entitic mass] 27.7 pg 26.1 - 33.3 pg [facility] MCHC (RBC) [Mass/Vol] 32.1 g/dL 31.9 - 36.5 g/dL [facility] MCV (RBC) [Entitic vol] 86.5 fL 79.0 - 94.5 fL [facility] Platelet mean volume (Bld) [Entitic vol] 9.6 fL 8.7 - 12.3 fL [facility] Platelets (Bld) [#/Vol] 176 10*3/uL 146 - 337 K/uL [facility] RBC (Bld) [#/Vol] 4.29 10*6/uL Low [facility] WBC (Bld) [#/Vol] 4.10 10*3/uL 3.73 - 10. 10 K/uL [facility] CHEM 7 (LYTES,BUN,CREA,GLUC) on 09-07-2023 Anion gap [Moles/Vol] 13 mmol/L Normal 7-17 [facility] Comment on above: Performed By: #### Y PNRP #### [facility] (DEFAULT) [address] [place] [address] Chloride [Moles/Vol] 113 mmol/L High 98-108 [facility] Comment on above: Performed By: #### Y PNRP #### [facility] (DEFAULT) [address] [place] [address] CO2 [Moles/Vol] 19 mmol/L Low 21-31 [facility] Comment on above: Performed By: #### Y PNRP #### [facility] (DEFAULT) [address] [place] [address] Creatinine [Mass/Vol] 1.22 mg/dL Normal 0.70-1.30 [facility] Comment on above: Performed By: #### Y PNRP #### [facility] (DEFAULT) [address] [place] [address] GFR/1.73 sq M.predicted among non-blacks MDRD (S/P/Bld) [Vol rate/Area] 71 mL/min/{1.73_m2} Normal >=60 [facility] Comment on above: Result Comment: Repo rted eGFR is based on the CKD-EPI 2020 equation using creatinine, age, and sex. Performed By: #### Y PNRP #### [facility] (DEFAULT) [address] [place] [address] Glucose [Mass/Vol] 107 mg/dL High 70-99 [facility] Comment on above: Performed By: #### Y PNRP #### [facility] (DEFAULT) [address] [place] [address] Osmolality [Osmolality] 295 mosm/kg Normal 278-305 [facility] Comment on above: Performed By: #### Y PNRP #### [facility] (DEFAULT) [address] [place] [address] Potassium [Moles/Vol] 3.9 mmol/L Normal 3.5-5.0 [facility] Comment on above: Performed By: #### Y PNRP #### [facility] (DEFAULT) [address] [place] [address] Sodium [Moles/Vol] 141 mmol/L Normal 135-145 [facility] Comment on above: Performed By: #### Y PNRP #### [facility] (DEFAULT) [address] [place] [address] Urea nitrogen [Mass/Vol] 13 mg/dL Normal 7-25 [facility] Comment on above: Performed By: #### Y PNRP #### [facility] (DEFAULT) [address] [place] [address] Urea nitrogen/Creatinine [Mass ratio] 11 mg/mg Normal [facility] Comment on above: Performed By: #### Y PNRP #### [facility] (DEFAULT) [address] [place] [address] Anion gap [Moles/Vol] 13 mmol/L 7 - 17 mmol/L [facility] Chloride [Moles/Vol] 113 mmol/L High 98 - 10 8 mmol/L [facility] CO2 [Moles/Vol] 19 mmol/L Low 21 - 31 mmol/L [facility] Creatinine [Mass/Vol] 1.22 mg/dL 0.70 - 1.30 mg/dL [facility] eGFR, CKD-EPI, Male 71 - PINF [facility] Glucose [Mass/Vol] 107 mg/dL High 70 - 99 mg/dL [facility] Osmolality Calc [Osmolality] 295 [facility] Potassium [Moles/Vol] 3.9 mmol/L 3.5 - 5.0 mmol/L [facility] Sodium [Moles/Vol] 141 mmol/L 135 - 145 mmol/L [facility] Urea nitrogen [Mass/Vol] 13 mg/dL 7 - 25 mg/dL [facility] Urea nitrogen/Creatinine [Mass ratio] 11 mg/mg [facility] HEPATIC FUNCTION PANELon Albumin [Mass/Vol] 2.9 g/dL Low 3.5-5.0 [facility] Comment on above: Performed By: #### Y PNRP #### [facility] (DEFAULT) [address] [address] ALP [Catalytic activity/Vol] 111 U/L Normal 32-126 [facility] Comment on above: Performed By: #### Y PNRP #### [facility] (DEFAULT) [address] [address] ALT [Catalytic activity/Vol] 18 U/L Normal 10-52 [facility] Comment on above: Performed By: #### Y PNRP #### [facility] (DEFAULT) [address] [place] [address] AST [Catalytic activity/Vol] 23 U/L Normal 10-39 [facility] Comment on above: Performed By: #### Y PNRP #### [facility] (DEFAULT) [address] [place] [address] Bilirubin [Mass/Vol] 0.8 mg/dL Normal <1.5 [facility] Comment on above: Performed By: #### Y PNRP #### [facility] (DEFAULT) [address] [place] [address] Bilirubin.indirect [Mass/Vol] 0.3 mg/dL High <0.3 [facility] Comment on above: Performed By: #### Y PNRP #### [facility] (DEFAULT) [address] [place] [address] Protein [Mass/Vol] 6.0 g/dL Low 6.4-8.3 [facility] Comment on above: Performed By: #### Y PNRP #### [facility] (DEFAULT) [address] [place] [address] Albumin [Mass/Vol] 2.9 g/dL Low 3.5 - 5.0 g/dL [facility] ALP [Catalytic activity/Vol] 111 U/L 32 - 126 U/L [facility] ALT [Catalytic activity/Vol] 18 U/L 10 - 52 U/L [facility] AST [Catalytic activity/Vol] 23 U/L 10 - 39 U/L [facility] Bilirubin [Mass/Vol] 0.8 mg/dL NINF - 1.5 mg/dL [facility] Bilirubin.direct [Mass/Vol] 0.3 mg/dL High NINF - 0.3 mg/dL [facility] Protein [Mass/Vol] 6.0 g/dL Low 6.4 - 8.3 g/dL [facility] MAGNESIUMon 09-07-2023 Magnesium [Mass/Vol] 1.7 mg/dL Normal 1.6-2.6 [facility] Comment on above: Performed By: #### Y PNRP #### [facility] (DEFAULT) [address] [place] [address] Interpretation and review of laboratory results Normal [facility] Magnesium [Mass/Vol] 1.7 mg/dL 1.6 - 2 .6 mg/dL [facility] No Panel Informationon 09-07 Interpretation and review of laboratory results Abnormal [facility] PHOSPHATE, INORGANICon 09-07 Phosphorous 4.4 mg/dL Normal 2.2-4.6 [facility] Comment on above: Performed By: #### Y PNRP #### [facility] (DEFAULT) [address] [address] Interpretation and review of laboratory results Normal [facility] Phosphate [Mass/Vol] 4.4 mg/dL 2.2 - 4 .6 mg/dL [facility] TACROLIMUS LEVEL, TROUGH (NE E DRUG LEVEL)Ordered By: Elizabeth Maldonado on 09-07-2023 Interpretation and review of laboratory results Normal [facility] Tacrolimus (Bld) [Mass/Vol] 7.8 ng/mL [facility] TACROLIMUS LEVEL, TROUGH (NE E DRUG LEVEL)on 09-07-2023 Tacrolimus, Trough 7.8 ng/mL Normal Bone Susana ow Transplant: 4.0-12.0, Therapeutic: 5.0-15.0 [facility] Comment on above: Order Comment: Pleas e draw at specified interval PRIOR to dose. Do not hold dose to wait for level. Specimens batched twice per day, (M-F) and once per day weekends Method performed is a chemiluminescent microparticle immunoasssay on the [employer] i2000. The range is based on experience at [facility] and users should be aware that target concentrations vary widely depending on concomitant therapy, time post-transplant, and desired degree of immunosuppression. Performed By: #### T ACRO #### [facility] (DEFAULT) [address] [place] [address] CBC,PLATELETSon 09-06-2023 Hematocrit (Bld) [Volume fraction] 38.4 % Low 39.6-48.8 [facility] Comment on above: Performed By: #### Y PNRP #### [facility] (DEFAULT) [address] [address] Hemoglobin (Bld) [Mass/Vol] 11.9 g/dL Low 13.4-16.8 [facility] Comment on above: Performed By: #### Y PNRP #### [facility] (DEFAULT) [address] [address] MCV (RBC) [Entitic vol] 85.9 fL Normal 79.0-94.5 [facility] Comment on above: Performed By: #### Y PNRP #### [facility] (DEFAULT) [address] [place] [address] Mean Cell Hgb 26.6 pg Normal 26.1-33.3 [facility] Comment on above: Performed By: #### Y PNRP #### [facility] (DEFAULT) [address] [place] [address] Mean Cell Hgb Conc 31.0 g/dL Low 31.9-36.5 [facility] Comment on above: Performed By: #### Y PNRP #### [facility] (DEFAULT) [address] [place] [address] 35645 Platelet mean volume (Bld) [Entitic vol] 9.7 fL Normal 8.7-12.3 [facility] Comment on above: Performed By: #### Y PNRP #### [facility] (DEFAULT) [address] [place] [address] 31133 Platelets (Bld) [#/Vol] 181 10*3/uL Normal 146-337 [facility] Comment on above: Performed By: #### Y PNRP #### [facility] (DEFAULT) [address] [place] [address] 96438 RBC (Bld) [#/Vol] 4.47 10*6/uL Normal 4.38-5.83 [facility] Comment on above: Performed By: #### Y PNRP #### [facility] (DEFAULT) [address] [place] [address] 74041 RBC Distribution 13.4 % Normal 10.9-14.3 [facility] Comment on above: Performed By: #### Y PNRP #### [facility] (DEFAULT) [address] [place] [address] 97344 WBC (Bld) [#/Vol] 4.41 10*3/uL Normal 3.73-10.10 [facility] Comment on above: Performed By: #### Y PNRP #### [facility] (DEFAULT) [address] [place] [address] Erythrocyte distribution width (RBC) [Ratio] 13.4 % 10.9 - 14.3 % [facility] Hematocrit (Bld) [Volume fraction] 38.4 % Low 39.6 - 48.8 % [facility] Hemoglobin (Bld) [Mass/Vol] 11.9 g/dL Low 13.4 - 16.8 g/dL [facility] Interpretation and review of laboratory results Abnormal [facility] MCH (RBC) [Entitic mass] 26.6 pg 26.1 - 33.3 pg [facility] MCHC (RBC) [Mass/Vol] 31.0 g/dL Low 31.9 - 36.5 g/dL [facility] MCV (RBC) [Entitic vol] 85.9 fL 79.0 - 94.5 fL [facility] Platelet mean volume (Bld) [Entitic vol] 9.7 fL 8.7 - 12.3 fL [facility] Platelets (Bld) [#/Vol] 181 10*3/uL 146 - 337 K/uL [facility] RBC (Bld) [#/Vol] 4.47 10*6/uL [facility] WBC (Bld) [#/Vol] 4.41 10*3/uL 3.73 - 10. 10 K/uL [facility] CHEM 7 (LYTES,BUN,CREA,GLUC) on 09-06-2023 Anion gap [Moles/Vol] 14 mmol/L 7 - 17 mmol/L [facility] Chloride [Moles/Vol] 109 mmol/L High 98 - 10 8 mmol/L [facility] CO2 [Moles/Vol] 19 mmol/L Low 21 - 31 mmol/L [facility] Creatinine [Mass/Vol] 1.26 mg/dL 0.70 - 1.30 mg/dL [facility] eGFR, CKD-EPI, Male 69 - PINF [facility] Glucose [Mass/Vol] 114 mg/dL High 70 - 99 mg/dL [facility] Osmolality Calc [Osmolality] 291 [facility] Potassium [Moles/Vol] 4.1 mmol/L 3.5 - 5.0 mmol/L [facility] Sodium [Moles/Vol] 138 mmol/L 135 - 145 mmol/L [facility] Urea nitrogen [Mass/Vol] 16 mg/dL 7 - 25 mg/dL [facility] Urea nitrogen/Creatinine [Mass ratio] 13 mg/mg [facility] Anion gap [Moles/Vol] 14 mmol/L Normal 7-17 [facility] Comment on above: Performed By: #### L EGN #### [facility] (DEFAULT) [address] [place] [address] Chloride [Moles/Vol] 109 mmol/L High 98-108 [facility] Comment on above: Performed By: #### L EGN #### [facility] (DEFAULT) [address] [place] [address] CO2 [Moles/Vol] 19 mmol/L Low 21-31 [facility] Comment on above: Performed By: #### L EGN #### [facility] (DEFAULT) [address] [place] [address] Creatinine [Mass/Vol] 1.26 mg/dL Normal 0.70-1.30 [facility] Comment on above: Performed By: #### L EGN #### [facility] (DEFAULT) [address] [place] [address] 48080 GFR/1.73 sq M.predicted among non-blacks MDRD (S/P/Bld) [Vol rate/Area] 69 mL/min/{1.73_m2} Normal >=60 [facility] Comment on above: Result Comment: Repo rted eGFR is based on the CKD-EPI 2020 equation using creatinine, age, and sex. Performed By: #### L EGN #### [facility] (DEFAULT) [address] [place] [address] 67038 Glucose [Mass/Vol] 114 mg/dL High 70-99 [facility] Comment on above: Performed By: #### L EGN #### [facility] (DEFAULT) [address] [place] [address] Osmolality [Osmolality] 291 mosm/kg Normal 278-305 [facility] Comment on above: Performed By: #### L EGN #### [facility] (DEFAULT) [address] [place] [address] 69297 Potassium [Moles/Vol] 4.1 mmol/L Normal 3.5-5.0 [facility] Comment on above: Performed By: #### L EGN #### [facility] (DEFAULT) [address] [place] [address] 12262 Sodium [Moles/Vol] 138 mmol/L Normal 135-145 [facility] Comment on above: Performed By: #### L EGN #### [facility] (DEFAULT) [address] [place] [address] 99232 Urea nitrogen [Mass/Vol] 16 mg/dL Normal 7-25 [facility] Comment on above: Performed By: #### L EGN #### [facility] (DEFAULT) [address] [place] [address] 72576 Urea nitrogen/Creatinine [Mass ratio] 13 mg/mg Normal [facility] Comment on above: Performed By: #### L EGN #### [facility] (DEFAULT) [address] [place] [address] 69646 HEPATIC FUNCTION PANELon Albumin [Mass/Vol] 3.0 g/dL Low 3.5 - 5.0 g/dL [facility] ALP [Catalytic activity/Vol] 115 U/L 32 - 126 U/L [facility] ALT [Catalytic activity/Vol] 25 U/L 10 - 52 U/L [facility] AST [Catalytic activity/Vol] 31 U/L 10 - 39 U/L [facility] Bilirubin [Mass/Vol] 1.0 mg/dL NINF - 1.5 mg/dL [facility] Bilirubin.direct [Mass/Vol] 0.3 mg/dL High NINF - 0.3 mg/dL [facility] Protein [Mass/Vol] 6.3 g/dL Low 6.4 - 8.3 g/dL [facility] Albumin [Mass/Vol] 3.0 g/dL Low 3.5-5.0 [facility] Comment on above: Performed By: #### L EGN #### [facility] (DEFAULT) [address] [place] [address] 59369 ALP [Catalytic activity/Vol] 115 U/L Normal 32-126 [facility] Comment on above: Performed By: #### L EGN #### [facility] (DEFAULT) [address] [place] [address] 72799 ALT [Catalytic activity/Vol] 25 U/L Normal 10-52 [facility] Comment on above: Performed By: #### L EGN #### [facility] (DEFAULT) [address] [place] [address] 88153 AST [Catalytic activity/Vol] 31 U/L Normal 10-39 [facility] Comment on above: Performed By: #### L EGN #### [facility] (DEFAULT) [address] [place] [address] 00888 Bilirubin [Mass/Vol] 1.0 mg/dL Normal <1.5 [facility] Comment on above: Performed By: #### L EGN #### [facility] (DEFAULT) [address] [place] [address] 27404 Bilirubin.indirect [Mass/Vol] 0.3 mg/dL High <0.3 [facility] Comment on above: Performed By: #### L EGN #### [facility] (DEFAULT) [address] [place] [address] 66015 Protein [Mass/Vol] 6.3 g/dL Low 6.4-8.3 [facility] Comment on above: Performed By: #### L EGN #### [facility] (DEFAULT) [address] [place] [address] 88552 MAGNESIUMon 09-06-2023 Interpretation and review of laboratory results Normal [facility] Magnesium [Mass/Vol] 2.0 mg/dL 1.6 - 2 .6 mg/dL [facility] Magnesium [Mass/Vol] 2.0 mg/dL Normal 1.6-2.6 [facility] Comment on above: Performed By: #### L EGN #### [facility] (DEFAULT) [address] [place] [address] 82594 No Panel Informationon 09-06 Interpretation and review of laboratory results Abnormal [facility] TACROLIMUS LEVEL, TROUGH (NE E DRUG LEVEL)on 09-06-2023 Interpretation and review of laboratory results Normal [facility] Tacrolimus (Bld) [Mass/Vol] 6.7 ng/mL [facility] Tacrolimus, Trough 6.7 ng/mL Normal Bone Susana ow Transplant: 4.0-12.0, Therapeutic: 5.0-15.0 [facility] Comment on above: Order Comment: Pleas e draw at specified interval PRIOR to dose. Do not hold dose to wait for level. Specimens batched twice per day, (M-) and once per day weekends Method performed is a chemiluminescent microparticle immunoasssay on the [employer] i2000. The range is based on experience at [facility] and users should be aware that target concentrations vary widely depending on concomitant therapy, time post-transplant, and desired degree of immunosuppression. Performed By: #### T ACRO #### [facility] (DEFAULT) [address] [place] [address] 62150 CBC,PLATELETSon 09-05-2023 Hematocrit (Bld) [Volume fraction] 35.6 % Low 39.6-48.8 [facility] Comment on above: Performed By: #### T ACRO #### [facility] (DEFAULT) [address] [place] [address] 97670 Hemoglobin (Bld) [Mass/Vol] 11.4 g/dL Low 13.4-16.8 [facility] Comment on above: Performed By: #### T ACRO #### [facility] (DEFAULT) [address] [place] [address] 54851 MCV (RBC) [Entitic vol] 86.0 fL Normal 79.0-94.5 [facility] Comment on above: Performed By: #### T ACRO #### [facility] (DEFAULT) [address] [place] [address] 30316 Mean Cell Hgb 27.5 pg Normal 26.1-33.3 [facility] Comment on above: Performed By: #### T ACRO #### [facility] (DEFAULT) [address] [place] [address] 50666 Mean Cell Hgb Conc 32.0 g/dL Normal 31.9-36.5 [facility] Comment on above: Performed By: #### T ACRO #### [facility] (DEFAULT) [address] [place] [address] 61520 Platelet mean volume (Bld) [Entitic vol] 10.0 fL Normal 8.7-12.3 [facility] Comment on above: Performed By: #### T ACRO #### [facility] (DEFAULT) [address] [place] [address] 23704 Platelets (Bld) [#/Vol] 170 10*3/uL Normal 146-337 [facility] Comment on above: Performed By: #### T ACRO #### [facility] (DEFAULT) [address] [address] RBC (Bld) [#/Vol] 4.14 10*6/uL Low 4.38-5.83 [facility] Comment on above: Performed By: #### T ACRO #### [facility] (DEFAULT) [address] [place] [address] 76697 RBC Distribution 13.5 % Normal 10.9-14.3 [facility] Comment on above: Performed By: #### T ACRO #### [facility] (DEFAULT) [address] [place] [address] WBC (Bld) [#/Vol] 4.24 10*3/uL Normal 3.73-10.10 [facility] Comment on above: Performed By: #### T ACRO #### [facility] (DEFAULT) [address] [place] [address] Erythrocyte distribution width (RBC) [Ratio] 13.5 % 10.9 - 14.3 % [facility] Hematocrit (Bld) [Volume fraction] 35.6 % Low 39.6 - 48.8 % [facility] Hemoglobin (Bld) [Mass/Vol] 11.4 g/dL Low 13.4 - 16.8 g/dL [facility] Interpretation and review of laboratory results Abnormal [facility] MCH (RBC) [Entitic mass] 27.5 pg 26.1 - 33.3 pg [facility] MCHC (RBC) [Mass/Vol] 32.0 g/dL 31.9 - 36.5 g/dL [facility] MCV (RBC) [Entitic vol] 86.0 fL 79.0 - 94.5 fL [facility] Platelet mean volume (Bld) [Entitic vol] 10.0 fL 8.7 - 12.3 fL [facility] Platelets (Bld) [#/Vol] 170 10*3/uL 146 - 337 K/uL [facility] RBC (Bld) [#/Vol] 4.14 10*6/uL Low [facility] WBC (Bld) [#/Vol] 4.24 10*3/uL 3.73 - 10. 10 K/uL [facility] CHEM 7 (LYTES,BUN,CREA,GLUC) on 09-05-2023 Anion gap [Moles/Vol] 12 mmol/L Normal 7-17 [facility] Comment on above: Performed By: #### L EGN #### [facility] (DEFAULT) [address] [place] [address] 90623 Chloride [Moles/Vol] 107 mmol/L Normal 98-108 [facility] Comment on above: Performed By: #### L EGN #### [facility] (DEFAULT) [address] [place] [address] 08228 CO2 [Moles/Vol] 20 mmol/L Low 21-31 [facility] Comment on above: Performed By: #### L EGN #### [facility] (DEFAULT) [address] [place] [address] 73950 Creatinine [Mass/Vol] 1.43 mg/dL High 0.70-1.30 [facility] Comment on above: Performed By: #### L EGN #### [facility] (DEFAULT) [address] [place] [address] 36063 GFR/1.73 sq M.predicted among non-blacks MDRD (S/P/Bld) [Vol rate/Area] 59 mL/min/{1.73_m2} Low >=60 [facility] Comment on above: Result Comment: Repo rted eGFR is based on the CKD-EPI 2020 equation using creatinine, age, and sex. Performed By: #### L EGN #### [facility] (DEFAULT) [address] [place] [address] 13194 Glucose [Mass/Vol] 111 mg/dL High 70-99 [facility] Comment on above: Performed By: #### L EGN #### [facility] (DEFAULT) [address] [place] [address] 63853 Osmolality [Osmolality] 286 mosm/kg Normal 278-305 [facility] Comment on above: Performed By: #### L EGN #### [facility] (DEFAULT) [address] [place] [address] 73343 Potassium [Moles/Vol] 4.2 mmol/L Normal 3.5-5.0 [facility] Comment on above: Performed By: #### L EGN #### [facility] (DEFAULT) [address] [place] [address] Sodium [Moles/Vol] 135 mmol/L Normal 135-145 [facility] Comment on above: Performed By: #### L EGN #### [facility] (DEFAULT) [address] [place] [address] Urea nitrogen [Mass/Vol] 18 mg/dL Normal 7-25 [facility] Comment on above: Performed By: #### L EGN #### [facility] (DEFAULT) [address] [place] [address] Urea nitrogen/Creatinine [Mass ratio] 13 mg/mg Normal [facility] Comment on above: Performed By: #### L EGN #### [facility] (DEFAULT) [address] [place] [address] 11299 Anion gap [Moles/Vol] 12 mmol/L 7 - 17 mmol/L [facility] Chloride [Moles/Vol] 107 mmol/L 98 - 10 8 mmol/L [facility] CO2 [Moles/Vol] 20 mmol/L Low 21 - 31 mmol/L [facility] Creatinine [Mass/Vol] 1.43 mg/dL High 0.70 - 1.30 mg/dL [facility] eGFR, CKD-EPI, Male 60 Low - PINF [facility] Glucose [Mass/Vol] 111 mg/dL High 70 - 99 mg/dL [facility] Osmolality Calc [Osmolality] 286 [facility] Potassium [Moles/Vol] 4.2 mmol/L 3.5 - 5.0 mmol/L [facility] Sodium [Moles/Vol] 135 mmol/L 135 - 145 mmol/L [facility] Urea nitrogen [Mass/Vol] 18 mg/dL 7 - 25 [facility] Urea [facility]/Creatinine [Mass ratio] 13 [facility] CONTINUOUS CARDIAC MONITORIN G STRIPon 10-07-2023 [facility] HEPATIC FUNCTION PANELon Albumin [Mass/Vol] 2.8 g/dL Low 3.5-5.0 [facility] Comment on above: Performed By: #### L EGN #### [facility] (DEFAULT) [address] [place] [address] ALP [Catalytic activity/Vol] 103 U/L Normal 32-126 [facility] Comment on above: Performed By: #### L EGN #### [facility] (DEFAULT) [address] [place] [address] ALT [Catalytic activity/Vol] 26 U/L Normal 10-52 [facility] Comment on above: Performed By: #### L EGN #### [facility] (DEFAULT) [address] [place] [address] AST [Catalytic activity/Vol] 38 U/L Normal 10-39 [facility] Comment on above: Performed By: #### L EGN #### [facility] (DEFAULT) [address] [place] [address] Bilirubin [Mass/Vol] 0.9 mg/dL Normal <1.5 [facility] Comment on above: Performed By: #### L EGN #### [facility] (DEFAULT) [address] [place] [address] Bilirubin.indirect [Mass/Vol] 0.1 mg/dL Normal <0.3 [facility] Comment on above: Performed By: #### L EGN #### [facility] (DEFAULT) [address] [place] [address] Protein [Mass/Vol] 6.1 g/dL Low 6.4-8.3 [facility] Comment on above: Performed By: #### L EGN #### [facility] (DEFAULT) [address] [place] [address] Albumin [Mass/Vol] 2.8 g/dL Low 3.5 - 5.0 g/dL [facility] ALP [Catalytic activity/Vol] 103 U/L 32 - 126 U/L [facility] ALT [Catalytic activity/Vol] 26 U/L 10 - 52 U/L [facility] AST [Catalytic activity/Vol] 38 U/L 10 - 39 U/L [facility] Bilirubin [Mass/Vol] 0.9 mg/dL NINF - 1.5 mg/dL [facility] Bilirubin.direct [Mass/Vol] 0.1 mg/dL NINF - 0.3 mg/dL [facility] Protein [Mass/Vol] 6.1 g/dL Low 6.4 - 8.3 g/dL [facility] HISTOPLASMA ANTIGEN, FLUIDon 09-05-2023 FH SOURCE BAL RML [facility] Histo FLD interpretation Negative [facility] Histoplasma Antigen, FLUID Not detected ng/mL [facility] HISTOPLASMA CAPSULATUM/BLAST OMYCES SPECIES,PCR FLUIDon 09-05-2023 HISTO/BLASTO RESULT Negative Not Applicable [facility] Specimen source Nom (Unsp spec) BAL RML [facility] IMMUNOPHENOTYPING, TISSUE/FL UIDon 09-05-2023 BKR DX CODE Use Ordering [facility] Flow Interpretation See Comment [facility] Flow Interpreted by: Yossi Perla MD, PhD [facility] MAGNESIUMon 09-05-2023 Magnesium [Mass/Vol] 1.7 mg/dL Normal 1.6-2.6 [facility] Comment on above: Performed By: #### L EGN #### [facility] (DEFAULT) [address] [place] [address] Interpretation and review of laboratory results Normal [facility] Magnesium [Mass/Vol] 1.7 mg/dL 1.6 - 2 .6 mg/dL [facility] No Panel Informationon 09-05 Interpretation and review of laboratory results Abnormal [facility] TACROLIMUS LEVEL, TROUGH (NE E DRUG LEVEL)Ordered By: Raymundo Mehta on 09-05-2023 Interpretation and review of laboratory results Normal [facility] Tacrolimus (Bld) [Mass/Vol] 5.3 ng/mL [facility] TACROLIMUS LEVEL, TROUGH (NE E DRUG LEVEL)on 09-05-2023 Tacrolimus, Trough 5.3 ng/mL Normal Bone Susana ow Transplant: 4.0-12.0, Therapeutic: 5.0-15.0 [facility] Comment on above: Order Comment: Pleas e draw at specified interval PRIOR to dose. Do not hold dose to wait for level. Specimens batched twice per day, (M-F) and once per day weekendsMethod performed is a chemiluminescent microparticle immunoasssay on the [employer] i2000.The range is based on experience at [facility] and users should be aware that target concentrations vary widely depending on concomitant therapy, time post-transplant, and desired degree of immunosuppression. Performed By: #### Y PNRP #### [facility] (DEFAULT) [address] [place] [address] 36633 ARTERIAL BLOOD GAS (FULL PUENTE EL)on 09-04-2023 Base Excess -1.2 mmol/L Normal -3.0-3.0 [facility] Comment on above: Performed By: #### G YASMINE #### [facility] (DEFAULT) [address] [place] [address] 46368 Carboxyhemoglobin 0.7 % Normal <=1.5 [facility] Comment on above: Performed By: #### G YASMINE #### [facility] (DEFAULT) [address] [address] Glucose [Mass/Vol] 159 mg/dL High 70-99 [facility] Comment on above: Performed By: #### G YASMINE #### [facility] (DEFAULT) [address] [place] [address] 95886 HCO3 (Bld) [Moles/Vol] 22 mmol/L Normal 22-28 [facility] Comment on above: Performed By: #### Vale UNDERWOOD #### [facility] (DEFAULT) [address] [place] [address] 32501 Hematocrit (Bld) [Volume fraction] 38.0 % Low 40.2-50.4 [facility] Comment on above: Performed By: #### Vale UNDERWOOD #### [facility] (DEFAULT) [address] [place] [address] 60309 Hemoglobin (Bld) [Mass/Vol] 12.6 g/dL Low 13.4-16.8 [facility] Comment on above: Performed By: #### Vale UNDERWOOD #### [facility] (DEFAULT) [address] [place] [address] 63389 Ionized Calcium, Whole Blood 4.79 mg/dL Normal 4.60-5.30 [facility] Comment on above: Performed By: ###Walter UNDERWOOD #### [facility] (DEFAULT) [address] [place] [address] 70047 Lactate, Whole Blood 2.0 mmol/L High 0.5-1.6 [facility] Comment on above: Performed By: ###Walter UNDERWOOD #### [facility] (DEFAULT) [address] [place] [address] 39696 Methemoglobin 0.0 % Normal <=1.5 [facility] Comment on above: Performed By: ###Walter UNDERWOOD #### [facility] (DEFAULT) [address] [place] [address] 12711 Oxyhemoglobin 91 % Low 94-98 [facility] Comment on above: Performed By: #### Vale UNDERWOOD #### [facility] (DEFAULT) [address] [place] [address] 61627 pCO2 30 mm Hg Low 32-48 [facility] Comment on above: Performed By: #### Vale UNDERWOOD #### [facility] (DEFAULT) [address] [place] [address] 90289 pH (Bld) 7.48 [pH] High 7.35-7.45 [facility] Comment on above: Performed By: #### Vale UNDERWOOD #### [facility] (DEFAULT) [address] [place] [address] 84797 pO2 62 mm Hg Low 83-108 [facility] Comment on above: Performed By: #### Vale UNDERWOOD #### [facility] (DEFAULT) [address] [place] [address] 88801 Potassium [Moles/Vol] 4.2 mmol/L Normal 3.5-5.0 [facility] Comment on above: Performed By: #### Vale UNDERWOOD #### [facility] (DEFAULT) [address] [place] [address] 05586 sO2 92 % Low 94-98 [facility] Comment on above: Performed By: #### Vale UNDERWOOD #### [facility] (DEFAULT) [address] [place] [address] 95876 Sodium [Moles/Vol] 130 mmol/L Low 135-145 [facility] Comment on above: Performed By: #### Vale UNDERWOOD #### [facility] (DEFAULT) [address] [place] [address] 23911 Specimen type Nom (Spec) Arterial Normal [facility] Comment on above: Performed By: ###Walter UNDERWOOD #### [facility] (DEFAULT) [address] [place] [address] 66528 Base excess Calc (Bld) [Moles/Vol] -1.2000 mmol/L -3.0 - 3.0 mmol/L [facility] Calcium.ionized (Bld) [Mass/Vol] 4.79 mg/dL 4.60 - 5.30 mg/dL [facility] Carboxyhemoglobin (Bld) [Mass fraction] 0.7 % NINF - 1.5 % [facility] CO2 (Bld) [Partial pressure] 30 mm[Hg] Low [facility] Glucose [Mass/Vol] 159 mg/dL High 70 - 99 mg/dL [facility] HCO3 (Bld) [Moles/Vol] 22 mmol/L 22 - 28 mmol/L [facility] Hematocrit (Bld) [Volume fraction] 38.0 % Low 40.2 - 50.4 % [facility] Hemoglobin (Bld) [Mass/Vol] 12.6 g/dL Low 13.4 - 16.8 g/dL [facility] Interpretation and review of laboratory results Abnormal [facility] Lactate [Moles/Vol] 2.0 mmol/L High 0.5 - 1. 6 mmol/L [facility] Methemoglobin (Bld) [Mass fraction] 0.0 % NINF - 1.5 % [facility] Oxygen (Bld) [Partial pressure] 62 mm[Hg] Low [facility] Oxygen saturation in Blood 92 % Low 94 - 98 % [facility] Oxyhemoglobin 91 % Low 94 - 98 % [facility] pH (Bld) 7.48 [pH] High 7.35 - 7.45 [facility] Potassium [Moles/Vol] 4.2 mmol/L 3.5 - 5.0 mmol/L [facility] Sodium [Moles/Vol] 130 mmol/L Low 135 - 145 mmol/L [facility] Specimen source Nom (Unsp spec) Arterial [facility] Bacteria identified Respirat ory culture Nom (Unsp spec)on 09-04-2023 Bacteria identified Cx Nom (Unsp spec) NO GROWTH DAY 2 OF 2 [facility] Microscopic observation Other stain Nom (Unsp spec) Cytocentrifuge preparation [facility] Microscopic observation Other stain Nom (Unsp spec) Neutrophils, Rare [facility] Microscopic observation Other stain Nom (Unsp spec) Red Blood Cells Present [facility] Microscopic observation Other stain Nom (Unsp spec) No organisms seen [facility] Bacteria identified Respirat ory culture Nom (Unsp spec)Ordered By: Jose Salgado on 09-04-2023 Bacteria identified Cx Nom (Unsp spec) NO GROWTH DAY 2 OF 2 [facility] Microscopic observation Other stain Nom (Unsp spec) Cytocentrifuge preparation [facility] Microscopic observation Other stain Nom (Unsp spec) Neutrophils, Moderate [facility]scopic [facility] Other stain Nom (Unsp spec) Red Blood Cells Present [facility] Microscopic observation Other stain Nom (Unsp spec) No organisms seen [facility] CBC,PLATELETSon 09-04-2023 Hematocrit (Bld) [Volume fraction] 38.7 % Low 39.6-48.8 [facility] Comment on above: Performed By: #### N ONGNNONFNA #### [facility] (DEFAULT) [address] [address] Hemoglobin (Bld) [Mass/Vol] 12.3 g/dL Low 13.4-16.8 [facility] Comment on above: Performed By: #### N ONGNNONFNA #### [facility] (DEFAULT) [address] [address] MCV (RBC) [Entitic vol] 87.8 fL Normal 79.0-94.5 [facility] Comment on above: Performed By: #### N ONGNNONFNA #### [facility] (DEFAULT) [address] [address] Mean Cell Hgb 27.9 pg Normal 26.1-33.3 [facility] Comment on above: Performed By: #### N ONGNNONFNA #### [facility] (DEFAULT) [address] [place] [address] Mean Cell Hgb Conc 31.8 g/dL Low 31.9-36.5 [facility] Comment on above: Performed By: #### N ONGNNONFNA #### [facility] (DEFAULT) [address] [address] Platelet mean volume (Bld) [Entitic vol] 9.8 fL Normal 8.7-12.3 [facility] Comment on above: Performed By: #### N ONGNNONFNA #### [facility] (DEFAULT) [address] [place] [address] Platelets (Bld) [#/Vol] 173 10*3/uL Normal 146-337 [facility] Comment on above: Performed By: #### N ONGNNONFNA #### [facility] (DEFAULT) [address] [place] [address] RBC (Bld) [#/Vol] 4.41 10*6/uL Normal 4.38-5.83 [facility] Comment on above: Performed By: #### N ONGNNONFNA #### [facility] (DEFAULT) [address] [place] [address] RBC Distribution 13.2 % Normal 10.9-14.3 [facility] Comment on above: Performed By: #### N ONGNNONFNA #### [facility] (DEFAULT) [address] [place] [address] WBC (Bld) [#/Vol] 4.57 10*3/uL Normal 3.73-10.10 [facility] Comment on above: Performed By: #### N ONGNNONFNA #### [facility] (DEFAULT) [address] [place] [address] Erythrocyte distribution width (RBC) [Ratio] 13.2 % 10.9 - 14.3 % [facility] Hematocrit (Bld) [Volume fraction] 38.7 % Low 39.6 - 48.8 % [facility] Hemoglobin (Bld) [Mass/Vol] 12.3 g/dL Low 13.4 - 16.8 g/dL [facility] Interpretation and review of laboratory results Abnormal [facility] MCH (RBC) [Entitic mass] 27.9 pg 26.1 - 33.3 pg [facility] MCHC (RBC) [Mass/Vol] 31.8 g/dL Low 31.9 - 36.5 g/dL [facility] MCV (RBC) [Entitic vol] 87.8 fL 79.0 - 94.5 fL [facility] Platelet mean volume (Bld) [Entitic vol] 9.8 fL 8.7 - 12.3 fL [facility] Platelets (Bld) [#/Vol] 173 10*3/uL 146 - 337 K/uL [facility] RBC (Bld) [#/Vol] 4.41 10*6/uL [facility] WBC (Bld) [#/Vol] 4.57 10*3/uL 3.73 - 10. 10 K/uL [facility] CHEM 7 (LYTES,BUN,CREA,GLUC) on 09-04-2023 Anion gap [Moles/Vol] 16 mmol/L Normal 7-17 [facility] Comment on above: Performed By: #### N ONGNAURELIANONA #### [facility] (DEFAULT) [address] [address] Chloride [Moles/Vol] 104 mmol/L Normal 98-108 [facility] Comment on above: Performed By: #### N ONGNAURELIANONA #### [facility] (DEFAULT) [address] [address] CO2 [Moles/Vol] 18 mmol/L Low 21-31 [facility] Comment on above: Performed By: #### N ONGNGRAEMEFNA #### [facility] (DEFAULT) [address] [address] Creatinine [Mass/Vol] 1.22 mg/dL Normal 0.70-1.30 [facility] Comment on above: Performed By: #### N ONGNNONFNA #### [facility] (DEFAULT) [address] [address] GFR/1.73 sq M.predicted among non-blacks MDRD (S/P/Bld) [Vol rate/Area] 71 mL/min/{1.73_m2} Normal >=60 [facility] Comment on above: Result Comment: Repo rted eGFR is based on the CKD-EPI 2020 equation using creatinine, age, and sex. Performed By: #### N ONGNGRAEMEFNA #### [facility] (DEFAULT) [address] [place] [address] Glucose [Mass/Vol] 124 mg/dL High 70-99 [facility] Comment on above: Performed By: #### N ONGNNONFNA #### [facility] (DEFAULT) [address] [place] [address] Osmolality [Osmolality] 284 mosm/kg Normal 278-305 [facility] Comment on above: Performed By: #### N ONGNGRAEMEFNA #### [facility] (DEFAULT) [address] [place] [address] Potassium [Moles/Vol] 3.9 mmol/L Normal 3.5-5.0 [facility] Comment on above: Performed By: #### N ONGNNONFNA #### [facility] (DEFAULT) [address] [place] [address] Sodium [Moles/Vol] 134 mmol/L Low 135-145 [facility] Comment on above: Performed By: #### N ONGNNONFNA #### [facility] (DEFAULT) [address] [place] [address] Urea nitrogen [Mass/Vol] 15 mg/dL Normal 7-25 [facility] Comment on above: Performed By: #### N ONGNNONFNA #### [facility] (DEFAULT) [address] [place] [address] Urea nitrogen/Creatinine [Mass ratio] 12 mg/mg Normal [facility] Comment on above: Performed By: #### N ONGNNONFNA #### [facility] (DEFAULT) [address] [place] [address] Anion gap [Moles/Vol] 16 mmol/L 7 - 17 mmol/L [facility] Chloride [Moles/Vol] 104 mmol/L 98 - 10 8 mmol/L [facility] CO2 [Moles/Vol] 18 mmol/L Low 21 - 31 mmol/L [facility] Creatinine [Mass/Vol] 1.22 mg/dL 0.70 - 1.30 mg/dL [facility] eGFR, CKD-EPI, Male 72 - PINF [facility] Glucose [Mass/Vol] 124 mg/dL High 70 - 99 mg/dL [facility] Osmolality Calc [Osmolality] 284 [facility] Potassium [Moles/Vol] 3.9 mmol/L 3.5 - 5.0 mmol/L [facility] Sodium [Moles/Vol] 134 mmol/L Low 135 - 145 mmol/L [facility] Urea nitrogen [Mass/Vol] 15 mg/dL 7 - 25 mg/dL [facility] Urea nitrogen/Creatinine [Mass ratio] 12 mg/mg [facility] CMV PCR,FLUIDS,URINE,EYE ETC on 09-04-2023 Specimen source Nom (Unsp spec) BAL LLL [facility] Specimen source Nom (Unsp spec) BAL RML [facility] HEPATIC FUNCTION PANELon Albumin [Mass/Vol] 3.0 g/dL Low 3.5-5.0 [facility] Comment on above: Performed By: #### N ONGNNONFNA #### [facility] (DEFAULT) [address] [place] [address] ALP [Catalytic activity/Vol] 112 U/L Normal 32-126 [facility] Comment on above: Performed By: #### N ONGNNONFNA #### [facility] (DEFAULT) [address] [place] [address] ALT [Catalytic activity/Vol] 22 U/L Normal 10-52 [facility] Comment on above: Performed By: #### N ONGNNONFNA #### [facility] (DEFAULT) [address] [place] [address] AST [Catalytic activity/Vol] 30 U/L Normal 10-39 [facility] Comment on above: Performed By: #### N ONGNNONFNA #### [facility] (DEFAULT) [address] [place] [address] Bilirubin [Mass/Vol] 1.2 mg/dL Normal <1.5 [facility] Comment on above: Performed By: #### N ONGNNONFNA #### [facility] (DEFAULT) [address] [place] [address] Bilirubin.indirect [Mass/Vol] 0.4 mg/dL High <0.3 [facility] Comment on above: Performed By: #### N ONGNNONFNA #### [facility] (DEFAULT) [address] [place] [address] Protein [Mass/Vol] 6.4 g/dL Normal 6.4-8.3 [facility] Comment on above: Performed By: #### N ONGNNONFNA #### [facility] (DEFAULT) [address] [place] [address] Albumin [Mass/Vol] 3.0 g/dL Low 3.5 - 5.0 g/dL [facility] ALP [Catalytic activity/Vol] 112 U/L 32 - 126 U/L [facility] ALT [Catalytic activity/Vol] 22 U/L 10 - 52 U/L [facility] AST [Catalytic activity/Vol] 30 U/L 10 - 39 U/L [facility] Bilirubin [Mass/Vol] 1.2 mg/dL NINF - 1.5 mg/dL [facility] Bilirubin.direct [Mass/Vol] 0.4 mg/dL High NINF - 0.3 mg/dL [facility] Protein [Mass/Vol] 6.4 g/dL 6.4 - 8.3 g/dL [facility] LEGIONELLA PCRon 09-04-2023 Legionella sp rRNA Probe Ql (Unsp spec) Negative Not Applicable [facility] Specimen source Nom (Unsp spec) [facility] an d Antimicrobial susceptibilityon 09-04-2023 CMV DNA ESTELITA+probe Ql (Unsp spec) Negative Negative [facility] MAGNESIUMon 09-04-2023 Magnesium [Mass/Vol] 1.4 mg/dL Low 1.6-2.6 [facility] Comment on above: Performed By: #### N ONGNNONFNA #### [facility] (DEFAULT) [address] [place] [address] Magnesium [Mass/Vol] 1.4 mg/dL Low 1.6 - 2 .6 mg/dL [facility] No Panel Informationon 09-04 Annotation comment [Interpretation] Narrative DNR [facility] PN Report Status DNR [facility] Pneumocystis jiroveci,PCR result Negative Not Applicable [facility] Interpretation and review of laboratory results Abnormal [facility] PNEUMOCYSTIS JIROVECI,PCRon 09-04-2023 Specimen source Nom (Unsp spec) BAL LLL [facility] Specimen source Nom (Unsp spec) BAL RML [facility] Portable XR Chest Viewson RADIOLOGY RADIOLOGY [facility] Radiology Study observation (narrative) [facility] Portable XR Chest ViewsOrder ed By: Joanie Nugent on 09-04-2023 [facility] Work Phone: TACROLIMUS LEVEL, TROUGH (NE E DRUG LEVEL)on 09-04-2023 Interpretation and review of laboratory results Abnormal [facility] Tacrolimus (Bld) [Mass/Vol] 3.6 ng/mL Low [facility] Tacrolimus, Trough 3.6 ng/mL Low Bone Susana ow Transplant: 4.0-12.0, Therapeutic: 5.0-15.0 [facility] Comment on above: Order Comment: Pleas e draw at specified interval PRIOR to dose. Do not hold dose to wait for level. Specimens batched twice per day, (M-F) and once per day weekends Method performed is a chemiluminescent microparticle immunoasssay on the [employer] i2000. The range is based on experience at [facility] and users should be aware that target concentrations vary widely depending on concomitant therapy, time post-transplant, and desired degree of immunosuppression. Performed By: #### T ACRO #### [facility] (DEFAULT) [address] [place], [place] [address] XR CHEST PORTABLEon 09-04-20 XR CHEST PORTABLE [...] the left lung likely infectious/inflammatory process. Normal [facility] ASPERGILLUS ANTIGEN, BALon 1 Galactomannan Ag IA Qn (Unsp spec) <0.500 [facility] Galactomannan Ag IA Qn (Unsp spec) <0.500 [facility] BAL CONSULTOrdered By: Noa Peralta on 09-03-2023 ALVEOLAR MACROPHAGES 32 % [facility] Work Phone: Bal comments Correlation with microbiology stains and cultures is recommended. [facility] Work Phone: Bal Diff Quik Stain Quality Check Acceptable [facility] Work Phone: BKR BAL INTERPRETATION Cellular specimen comprised of alveolar macrophages and small lymphocytes. No definitive microorganisms are observed. Moderate degenerative changes. [facility] Work Phone: BKR DX CODE Use Ordering [facility] Work Phone: Eosinophils Patterson stain Ql (Unsp spec) 0 % [facility] Work Phone: Lymphocytes/100 WBC (Bld) 57 % [facility] Work Phone: Neutrophils/100 WBC Manual cnt (Bronch spec) 11 % [facility] Work Phone: Pathologist review Jame (Unsp spec) [Interp] Leonardo Peralta MD [facility] Work Phone: [facility] Work Phone: BAL CONSULTon 09-03-2023 ALVEOLAR MACROPHAGES 33 % [facility] Bal comments Correlation with microbiology stains and cultures is recommended. Correlation with viral studies is recommended. [facility] Bal Diff Quik Stain Quality Check Acceptable [facility] BKR BAL INTERPRETATION Cellular specimen comprised of alveolar macrophages and small lymphocytes. No definitive microorganisms are observed. Rare degenerating cells with changes suggestive of viral cytopathic effect are noted. Moderate degenerative changes. [facility] BKR DX CODE Use Ordering [facility] Eosinophils Patterson stain Ql (Unsp spec) 0 % [facility] Lymphocytes/100 WBC (Bld) 49 % [facility] Neutrophils/100 WBC Manual cnt (Bronch spec) 18 % [facility] Pathologist review Jame (Unsp spec) [Interp] Leonardo Peralta MD [facility] BRONCHOSCOPYon 09-03-2023 LAB, [facility] CBC,PLATELETSon 09-03-2023 Hematocrit (Bld) [Volume fraction] 39.6 % Normal 39.6-48.8 [facility] Comment on above: Performed By: #### T ACRO #### [facility] (DEFAULT) [address] [address] Hemoglobin (Bld) [Mass/Vol] 12.8 g/dL Low 13.4-16.8 [facility] Comment on above: Performed By: #### T ACRO #### [facility] (DEFAULT) [address] [place] [address] MCV (RBC) [Entitic vol] 85.9 fL Normal 79.0-94.5 [facility] Comment on above: Performed By: #### T ACRO #### [facility] (DEFAULT) [address] [place] [address] Mean Cell Hgb 27.8 pg Normal 26.1-33.3 [facility] Comment on above: Performed By: #### T ACRO #### [facility] (DEFAULT) [address] [address] Mean Cell Hgb Conc 32.3 g/dL Normal 31.9-36.5 [facility] Comment on above: Performed By: #### T ACRO #### [facility] (DEFAULT) [address] [place] [address] Platelet mean volume (Bld) [Entitic vol] 9.4 fL Normal 8.7-12.3 [facility] Comment on above: Performed By: #### T ACRO #### [facility] (DEFAULT) [address] [address] Platelets (Bld) [#/Vol] 222 10*3/uL Normal 146-337 [facility] Comment on above: Performed By: #### T ACRO #### [facility] (DEFAULT) [address] [place] [address] RBC (Bld) [#/Vol] 4.61 10*6/uL Normal 4.38-5.83 [facility] Comment on above: Performed By: #### T ACRO #### [facility] (DEFAULT) [address] [address] RBC Distribution 13.4 % Normal 10.9-14.3 [facility] Comment on above: Performed By: #### T ACRO #### [facility] (DEFAULT) [address] [place] [address] WBC (Bld) [#/Vol] 4.36 10*3/uL Normal 3.73-10.10 [facility] Comment on above: Performed By: #### T ACRO #### [facility] (DEFAULT) [address] [place] [address] Erythrocyte distribution width (RBC) [Ratio] 13.4 % 10.9 - 14.3 % [facility] Hematocrit (Bld) [Volume fraction] 39.6 % 39.6 - 48.8 % [facility] Hemoglobin (Bld) [Mass/Vol] 12.8 g/dL Low 13.4 - 16.8 g/dL [facility] Interpretation and review of laboratory results Abnormal [facility] MCH (RBC) [Entitic mass] 27.8 pg 26.1 - 33.3 pg [facility] MCHC (RBC) [Mass/Vol] 32.3 g/dL 31.9 - 36.5 g/dL [facility] MCV (RBC) [Entitic vol] 85.9 fL 79.0 - 94.5 fL [facility] Platelet mean volume (Bld) [Entitic vol] 9.4 fL 8.7 - 12.3 fL [facility] Platelets (Bld) [#/Vol] 222 10*3/uL 146 - 337 K/uL [facility] RBC (Bld) [#/Vol] 4.61 10*6/uL [facility] WBC (Bld) [#/Vol] 4.36 10*3/uL 3.73 - 10. 10 K/uL [facility] CHEM 7 (LYTES,BUN,CREA,GLUC) on 09-03-2023 Anion gap [Moles/Vol] 12 mmol/L Normal 7-17 [facility] Comment on above: Performed By: #### L EGN #### [facility] (DEFAULT) [address] [place] [address] Chloride [Moles/Vol] 104 mmol/L Normal 98-108 [facility] Comment on above: Performed By: #### L EGN #### [facility] (DEFAULT) [address] [place] [address] CO2 [Moles/Vol] 24 mmol/L Normal 21-31 [facility] Comment on above: Performed By: #### L EGN #### [facility] (DEFAULT) [address] [place] [address] Creatinine [Mass/Vol] 1.20 mg/dL Normal 0.70-1.30 [facility] Comment on above: Performed By: #### L EGN #### [facility] (DEFAULT) [address] [address] GFR/1.73 sq M.predicted among non-blacks MDRD (S/P/Bld) [Vol rate/Area] 73 mL/min/{1.73_m2} Normal >=60 [facility] Comment on above: Result Comment: Repo rted eGFR is based on the CKD-EPI 2020 equation using creatinine, age, and sex. Performed By: #### L EGN #### [facility] (DEFAULT) [address] [address] Glucose [Mass/Vol] 112 mg/dL High 70-99 [facility] Comment on above: Performed By: #### L EGN #### [facility] (DEFAULT) [address] [address] Osmolality [Osmolality] 288 mosm/kg Normal 278-305 [facility] Comment on above: Performed By: #### L EGN #### [facility] (DEFAULT) [address] [address] Potassium [Moles/Vol] 4.1 mmol/L Normal 3.5-5.0 [facility] Comment on above: Performed By: #### L EGN #### [facility] (DEFAULT) [address] [place] [address] Sodium [Moles/Vol] 136 mmol/L Normal 135-145 [facility] Comment on above: Performed By: #### L EGN #### [facility] (DEFAULT) [address] [place] [address] Urea nitrogen [Mass/Vol] 17 mg/dL Normal 7-25 [facility] Comment on above: Performed By: #### L EGN #### [facility] (DEFAULT) [address] [place] [address] Urea nitrogen/Creatinine [Mass ratio] 14 mg/mg Normal [facility] Comment on above: Performed By: #### L EGN #### [facility] (DEFAULT) [address] [place] [address] Anion gap [Moles/Vol] 12 mmol/L 7 - 17 mmol/L [facility] Chloride [Moles/Vol] 104 mmol/L 98 - 10 8 mmol/L [facility] CO2 [Moles/Vol] 24 mmol/L 21 - 31 mmol/L [facility] Creatinine [Mass/Vol] 1.20 mg/dL 0.70 - 1.30 mg/dL [facility] eGFR, CKD-EPI, Male 73 - PINF [facility] Glucose [Mass/Vol] 112 mg/dL High 70 - 99 mg/dL [facility] Osmolality Calc [Osmolality] 288 [facility] Potassium [Moles/Vol] 4.1 mmol/L 3.5 - 5.0 mmol/L [facility] Sodium [Moles/Vol] 136 mmol/L 135 - 145 mmol/L [facility] Urea nitrogen [Mass/Vol] 17 mg/dL 7 - 25 mg/dL [facility] Urea nitrogen/Creatinine [Mass ratio] 14 mg/mg [facility] CYTOLOGY, NON-GYNOrdered By: Sherice Jimenez on 09-03-2023 CYTOLOGIC DIAGNOSIS a0zyiMWzPUUxeTPbWMMgZ4o npqNmHLRnsKBeX6OypbagKE pqZL3gXZ4puWzrxAHyxWSpS ARuAhWlw4aqe767hTUbp3zl GJJTnuyrkKn5e7efOIVNvC6 qb9e8mW31NSLjxM3ptLGeVX ueeaSkTZfallKsclQyAho2W QT2uDkyLlbiiSQ7lQNyeHO6 HNykp4RtpRoknWbrTKX0RSU hUmigAMbdtEX0wFIwiXnyvA HwKW8qb3utuCJ1gcTtLLL3v MxduTB6cQeuuuaft5zesRF7 dEN0ZDntuYD9LJtsOtPoX6q bBROhbG3nY32yC7vrECVzrZ tfSCkzUAPecET9FZW1AXDgt 1xsZXZlbHRleHRcJzAxXCdi Zrq2j9vbWCJefW58cEMftnW 7jKhkSTqpfBV2DD35ISbdd5 RaJVVukDecIUWkmV1sQpRfJ GxldmVsbmZjbjIzXGxldmVs jsLxNTshzoBln5NhimXxdUR 9QNugxvRbgTO4uDbzSPPzE4 I6H130PYcqdrEzrrTwDiGov eh0UNHdbSkpoAmweAxhoxZc IEhokpZzhoFaHfHqgBN8YRd vKwDtWuXkfET7CSxtTtBqnW L3WZpeoDKbxWA2VPeyoML7P Cm1EBk0UFceHRjaCox5pLiz nDE1GFregR2jUOFhR67zFsN 1y4izlMQ3kAH7SLcsvRZ0MD sgFtAfH8bhQTDyoB6cC94tU 8naRDYxkFmeIZpzCLOfhSN0 PNO7MPZok6zqGMTivKIkkFY dJzHdWAssBky0r0yrFJIinT 04uEYqldR7eCgdKK82DKudw 0TgHCMprTpgWNUwzW2qKdSk XGxldmVsbmZjbjIzXGxldmV vkjNtCLfjugKwj0HlnlVmpZ W0FCjzbqDutGO1oDwsCYLiF 7X5F629OKypxbUbqwXqOeCv bnr4SLMkpXsaiLkjhYpennR dAQbskgEyiyWtQmIctUO9VF xvUrJeHbHtzYR1CIirPlVad AG8FCerqTKbsWH3RDucdOC7 BXp3EYg6WUxrLDodMji9rDl jzJW4QZopwH0lAJZqH23iWm P2z1rldXN5eNI3HAldlAV0F GuaZiMoA2vbXHLqtK2kU33p H8rpRCIxeOrsFBskVAKonLO 9RZO3LTJjo9wwHVWumBWpmN WfQnVjOMnxDag9m8yzLXGsw T54uMTphuA8sUgeYI07JThp p9TxBLHbiFhbXERbeO0lYpA zXGxldmVsbmZjbjIzXGxldm VyvkWzCZlgncLkz1QrkwVsv LZ3VCjjubNeiLJ3wPyoPWQr Q6K0A200FLdxroPfhnAvPnS dxav6SRXvlYndyVuhnRbsbd XwAXgntxOarqOwHuHdeJL3I KjbEoUqZyPncCD0HIqpGcJg mOG0IOzxsCSinIK9WXwihIM 1UNl2FMa9DLhgNHchZxz2pX ktlWU1JGxrtT8kSFPeK27yX dJ0gH32ZVdiqPmfhL65LQBt jTWnvNQhfAA5LPljxCmikG4 1KJWgqAEfNVpyv7UiKWObTm U7VZT7KQSkcIabuS78FFAep HZnY211bqIeJLqtAW10TUMb cGVydzEyMjQwXHBhcGVyaDE 3VISgPS8wijfvSZszFKgvHP FmfwN6WWVmhEZgK5MgJLVtU M0sfkmqQAI7SUccPKLdZNX8 TqPwMZVop3Zqvns5EzKdtMa 0q7aoBYGxLCKgwPuhl4ckAD L8EINsqGDoA0tvwD4eOEXxU W3hltpds7vhKNteZNxzBSFu pKS3gyL6WJMjiIWpH3TsoY0 mLHTiJHSnyhLcdXfxcX7zTa jwglCzCVCnGOTWRqXMBm6KG 0qERYrPIY5FJLLuYEAMXVnX LYPRJQHFHGuLT4BKUJlODgH tYNDcDSYxS3pNH3eXP2kiRi ddDvRyRAloSVPqDbPtS4AdU HTzpxwzYFVuNLRHYY0NYZZK HTENQv4HGNL3ROAetkaygNA 7PNuritJcyHw8oGKyhYnfcA 5cYlxmczIyXGNmMSBObyBNY LbjZ21qkwRdX9XivETyUGHk WExfPN07iGBeKYPiaTNnKYq 9qD0yAFzliYsnqvMWcLAbtG 1lblxiMFxjZjBccGFyXGxpM FxsczBccGFyfQ== [facility] Work Phone: Case Report [facility] Work Phone: Clinical History z6argPBbNBAtgWLbUQOc M1x irwQnTRCilQVuI6CexerhVZ bhKZ1sWU8vlSynqJKwgIEiM YHlXpHwf8ngm005dUDlx0vp TBGYdcuvsJe5bGmlX79gg5U 8VdyeJ4qeLJZcIKvyTRNhYD hyoIJhHYo8EIOtsJZinjRyD gHrVKGakKTygVD2BQXiPV4v dtgsHSppMTxoCWZuzvF0AMP ejOOsD8FcAIAmCD4jszsaOZ U0KWjwPKGfPFG6LzIlHTZfd 7Gquqh1QvOpgFj3o9wgSDQb UHZosUzvl6ctURV2SKRttLU uK9nciY0lVIGdQP4hpjbvo9 gbLNayPVawQEChjHE1fwA5J DNrnJQvG3TdeL8uOSVbHTEs usKpcJcchF4dDjXvLFtvOpN gUmVuYWwgdHJhbnNwbGFudC 2kWFCscn7= [facility] Work Phone: [facility] Immediate [facility] Yes Yes [facility] Work Phone: Gross Description c5wyjAVuVZMmtYWaAOSl M1x zusBgKQMfvATnA9HyscpxFC iwOL7iRG6rlOilpXOypZJuG RQmVwLpq7ajy219aTTxm1bw QBVFnaazqFt1rJysP93hy2X 7OkwrM19bdVUxLTM6OYAeWT VhqJRiMQOwDZL2EHJenRCdE 1bqJRQgYJ8ozymrNMrlXOof ZSJizSC2PIAngFKlS1XrLSX rOTufAEGnauo0YzLcSp4keE VyeTcyMFxwYXJkXHBsYWluX GZzMjAgTExMIEJBTFxwYXIg XQTopWTcXBq4MSQsjD1siFR yvoHsnZVczY8qsVwtXAbiFP IgMSBUUCBzbGlkZSBQYXAgc 4IoeE9rtSUkLNZwolEmhJJe XHBhcn0= [facility] Work Phone: [facility] Work Phone: HEPATIC FUNCTION PANELon Albumin [Mass/Vol] 3.2 g/dL Low 3.5-5.0 [facility] Comment on above: Performed By: #### L EGN #### [facility] (DEFAULT) [address] [place] [address] ALP [Catalytic activity/Vol] 118 U/L Normal 32-126 [facility] Comment on above: Performed By: #### L EGN #### [facility] (DEFAULT) [address] [place] [address] ALT [Catalytic activity/Vol] 25 U/L Normal 10-52 [facility] Comment on above: Performed By: #### L EGN #### [facility] (DEFAULT) [address] [place] [address] AST [Catalytic activity/Vol] 32 U/L Normal 10-39 [facility] Comment on above: Performed By: #### L EGN #### [facility] (DEFAULT) [address] [place] [address]38 Bilirubin [Mass/Vol] 1.0 mg/dL Normal <1.5 [facility] Comment on above: Performed By: #### L EGN #### [facility] (DEFAULT) [address] [place] [address]261 Bilirubin.indirect [Mass/Vol] 0.3 mg/dL High <0.3 [facility] Comment on above: Performed By: #### L EGN #### [facility] (DEFAULT) [address] [place] [address]180 Protein [Mass/Vol] 6.5 g/dL Normal 6.4-8.3 [facility] Comment on above: Performed By: #### L EGN #### [facility] (DEFAULT) [address] [place] [address] 66581 Albumin [Mass/Vol] 3.2 g/dL Low 3.5 - 5.0 g/dL [facility] ALP [Catalytic activity/Vol] 118 U/L 32 - 126 U/L [facility] ALT [Catalytic activity/Vol] 25 U/L 10 - 52 U/L [facility] AST [Catalytic activity/Vol] 32 U/L 10 - 39 U/L [facility] Bilirubin [Mass/Vol] 1.0 mg/dL NINF - 1.5 mg/dL [facility] Bilirubin.direct [Mass/Vol] 0.3 mg/dL High NINF - 0.3 mg/dL [facility] Protein [Mass/Vol] 6.5 g/dL 6.4 - 8.3 g/dL [facility] HISTOPLASMA AND BLASTOMYCES ANTIGEN, ENZYME IMMUNOASSAY, SERMon 09-03-2023 Histoplasma/Blastomyc es Ag Result Detected Critically abnormal Not Detected [facility] Histoplasma/Blastomyc es Ag Value 5.3 ng/mL [facility] Interpretation and review of laboratory results Abnormal [facility] IMMUNOPHENOTYPING, TISSUE/FL UIDon 09-03-2023 BKR DX CODE Use Ordering Normal [facility] Comment on above: Order Comment: Pleas e draw at specified interval PRIOR to dose. Do not hold dose to wait for level. Specimens batched twice per day, (M-F) and once per day weekends Method performed is a chemiluminescent microparticle immunoasssay on the [employer] i2000. The range is based on experience at [facility] and users should be aware that target concentrations vary widely depending on concomitant therapy, time post-transplant, and desired degree of immunosuppression. Performed By: #### T ACRO #### [facility] (DEFAULT) [address] [place] [address] Flow Interpretation See Comment Normal [facility] Comment on above: Order Comment: Pleas e draw at specified interval PRIOR to dose. Do not hold dose to wait for level. Specimens batched twice per day, (M-F) and once per day weekends Method performed is a chemiluminescent microparticle immunoasssay on the [employer] i2000. The range is based on experience at [facility] and users should be aware that target concentrations vary widely depending on concomitant therapy, time post-transplant, and desired degree of immunosuppression. Performed By: #### T ACRO #### [facility] (DEFAULT) [address] [place] [address] Flow Interpreted by: Yossi Perla MD, PhD Normal [facility] Comment on above: Order Comment: Pleas e draw at specified interval PRIOR to dose. Do not hold dose to wait for level. Specimens batched twice per day, (M-F) and once per day weekends Method performed is a chemiluminescent microparticle immunoasssay on the [employer] i2000. The range is based on experience at [facility] and users should be aware that target concentrations vary widely depending on concomitant therapy, time post-transplant, and desired degree of immunosuppression. Performed By: #### T ACRO #### [facility] (DEFAULT) [address] [place] [address] MAGNESIUMon 09-03-2023 Magnesium [Mass/Vol] 1.6 mg/dL Normal 1.6-2.6 [facility] Comment on above: Performed By: #### T ACRO #### [facility] (DEFAULT) [address] [place] [address] Interpretation and review of laboratory results Normal [facility] Magnesium [Mass/Vol] 1.6 mg/dL 1.6 - 2 .6 mg/dL [facility] No Panel Informationon 09-03 Interpretation and review of laboratory results Abnormal [facility] PARVOVIRUS (B19) DNA, PCR, B LOODon 09-03-2023 PARVOVIRUS B19 BY RAPID PCR Not detected Not Detected [facility] NE SPEC SOURCE Whole Blood [facility] Portable XR Chest Viewson RADIOLOGY RADIOLOGY [facility] Radiology Study observation (narrative) [facility] Portable XR Chest ViewsOrder ed By: Lester [place] on 09-03-2023 [facility] Work Phone: XR CHEST PORTABLEon 09-03-20 [...] have reviewed and approved this report. Normal [facility] ACID FAST CULTUREon 09-02-20 23 Bacteria identified Cx Nom (Unsp spec) NO GROWTH DAY 42 OF 42 Normal [facility] Comment on above: Performed By: #### H EMOGC #### [facility] (DEFAULT) [address] [address] Fluorochrome Stain No acid Fast Bacillu s Seen Normal [facility] Comment on above: Performed By: #### H EMOGC #### [facility] (DEFAULT) [address] [address] Bacteria identified Cx Nom (Unsp spec) NO GROWTH DAY 42 OF 42 Normal [facility] Comment on above: Order Comment: Pleas e draw at specified interval PRIOR to dose. Do not hold dose to wait for level. Specimens batched twice per day, (M-F) and once per day weekends Method performed is a chemiluminescent microparticle immunoasssay on the [employer] i2000. The range is based on experience at [facility] and users should be aware that target concentrations vary widely depending on concomitant therapy, time post-transplant, and desired degree of immunosuppression. Performed By: #### T ACRO #### [facility] (DEFAULT) [address] [address] Fluorochrome Stain No acid Fast Bacillu s Seen Normal [facility] Comment on above: Order Comment: Pleas e draw at specified interval PRIOR to dose. Do not hold dose to wait for level. Specimens batched twice per day, (M-F) and once per day weekends Method performed is a chemiluminescent microparticle immunoasssay on the [employer] i2000. The range is based on experience at [facility] and users should be aware that target concentrations vary widely depending on concomitant therapy, time post-transplant, and desired degree of immunosuppression. Performed By: #### T ACRO #### [facility] (DEFAULT) [address] [place] [address] ASPERGILLUS (GALACTOMANNAN), ANTIGENon 09-02-2023 Galactomannan Ag IA Qn <0.500 NINF [facility] ASPERGILLUS ANTIGEN, BALon 1 Aspergillus Galactomannan Antigen, BAL <0.500 Normal <0.5 [facility] Comment on above: Result Comment: ADDITIONAL INFORMATION This is a qualitative test and the resulted index value is not indicative of disease severity. Serial testing is recommended for patients at high risk for invasive aspergillosis. This assay was performed using the FDA-cleared [employer] Platelia Aspergillus Galactomannan EIA. Test Performed by: [place] [address] Computer Builder: Rosenod Bose M.D. Ph.D.; CLIA# [id number] Performed By: #### T ACRO #### [facility] (DEFAULT) [address] [place] [address] Aspergillus Galactomannan Antigen, BAL <0.500 Normal <0.5 [facility] Comment on above: Order Comment: Pleas e draw at specified interval PRIOR to dose. Do not hold dose to wait for level. Specimens batched twice per day, (M-F) and once per day weekends Method performed is a chemiluminescent microparticle immunoasssay on the [employer] i2000. The range is based on experience [...] This assay was performed using the FDA-cleared [employer] Platelia Aspergillus Galactomannan EIA. Test Performed by: [facility] [address] [place] [address] Computer Builder: Rosendo Bose M.D. Ph.D.; CLIA# [id number] Performed By: #### T ACRO #### [facility] (DEFAULT) [address] [place] [address] ATYPICAL BACTERIAL PNEUMONIA ,PCROrdered By: Shari Contreras on 09-02-2023 B. parapertussis DNA ESTELITA+probe Ql (Unsp spec) Not detected Not Detected [facility] B. pertussis DNA ESTELITA+probe Ql (Unsp spec) Not detected Not Detected [facility] C. pneumoniae DNA ESTELITA+probe Ql (Unsp spec) Not detected Not Detected [facility] Interpretation and review of laboratory results Normal [facility] M. pneumoniae DNA ESTELITA+probe Ql (Unsp spec) Not detected Not Detected [facility] ATYPICAL BACTERIAL PNEUMONIA ,PCRon 09-02-2023 Bordetella Parapertussis Not detected Normal Not Detected [facility] Comment on above: Order Comment: [...] by [facility]. It has not been cleared or approved by the FDA. The laboratory is required under CLIA as qualified to perform high-complexity testing. This test is used for clinical purposes. It should not be regarded as investigational or for research. Performed By: #### [facility] #### [facility] (DEFAULT) [address] [address] Bordetella Pertussis Not detected Normal Not Detected [facility] Comment on above: Order Comment: [...] by The [facility]. It has not been cleared or approved by the FDA. The laboratory is required under CLIA as qualified to perform high-complexity testing. This test is used for clinical purposes. It should not be regarded as investigational or for research. Performed By: #### [facility] #### [facility] (DEFAULT) [address] [address] Chlamydia Pneumoniae Not detected Normal Not Detected [facility] Comment on above: Order Comment: [...] by [facility]. It has not been cleared or approved by the FDA. The laboratory is required under CLIA as qualified to perform high-complexity testing. This test is used for clinical purposes. It should not be regarded as investigational or for research. Performed By: #### [facility] #### [facility] (DEFAULT) [address] [address] Mycoplasma Pneumoniae Not detected Normal Not Detected [facility] Comment on above: Order Comment: [...] by [facility]. It has not been cleared or approved by the FDA. The laboratory is required under CLIA as qualified to perform high-complexity testing. This test is used for clinical purposes. It should not be regarded as investigational or for research. Performed By: #### H EMOGC #### [facility] (DEFAULT) [address] [address] BAL CONSULTon 09-02-2023 ALVEOLAR MACROPHAGES 33 % Normal [facility] Comment on above: Order Comment: BAL c onsultIf > 15% lymphocytes - please send for flow. Performed By: #### H EMOGC #### [facility] (DEFAULT) [address] [address] Bal comments Correlation with microbiology stains and cultures is recommended. Correlation with viral studies is recommended. Normal [facility] Comment on above: Order Comment: BAL c onsultIf > 15% lymphocytes - please send for flow. Performed By: #### H EMOGC #### [facility] (DEFAULT) [address] [address] Bal Diff Quik Stain Quality Check Acceptable Normal [facility] Comment on above: Order Comment: BAL c onsultIf > 15% lymphocytes - please send for flow. Performed By: #### H EMOGC #### [facility] (DEFAULT) [address] [address] Bal Reviewed By: Leonardo Peralta MD [facility] Comment on above: Order Comment: BAL c onsultIf > 15% lymphocytes - please send for flow. Performed By: #### H EMOGC #### [facility] (DEFAULT) [address] [address] BKR BAL INTERPRETATION Cellular specimen comprised of alveolar macrophages and small lymphocytes. No definitive microorganisms are observed. Rare degenerating cells with changes suggestive of viral cytopathic effect are noted. Moderate degenerative changes. Normal [facility] Comment on above: Order Comment: BAL c onsultIf > 15% lymphocytes - please send for flow. Performed By: #### H EMOGC #### [facility] (DEFAULT) [address] [place] [address] BKR DX CODE Use Ordering Normal [facility] Comment on above: Order Comment: BAL c onsultIf > 15% lymphocytes - please send for flow. Performed By: #### H EMOGC #### [facility] (DEFAULT) [address] [place] [address] Eosinophils/100 WBC (Bld) 0 % Normal [facility] Comment on above: Order Comment: BAL c onsultIf > 15% lymphocytes - please send for flow. Performed By: #### H EMOGC #### [facility] (DEFAULT) [address] [place] [address] Lymphocytes/100 WBC (Bld) 49 % Normal [facility] Comment on above: Order Comment: BAL c onsultIf > 15% lymphocytes - please send for flow. Performed By: #### H EMOGC #### [facility] (DEFAULT) [address] [place] [address] Neutrophils/100 WBC (Bld) 18 % Normal [facility] Comment on above: Order Comment: BAL c onsultIf > 15% lymphocytes - please send for flow. Performed By: #### H EMOGC #### [facility] (DEFAULT) [address] [place] [address] ALVEOLAR MACROPHAGES 32 % Normal [facility] Comment on above: Order Comment: BAL c onsult for cell differential and pathologist review. Please do flow cytometry if > 12% lymphocytes Performed By: #### H EMOGC #### [facility] (DEFAULT) [address] [place] [address] Bal comments Correlation with microbiology stains and cultures is recommended. Normal [facility] Comment on above: Order Comment: BAL c onsult for cell differential and pathologist review. Please do flow cytometry if > 12% lymphocytes Performed By: #### H EMOGC #### [facility] (DEFAULT) [address] [address] Bal Diff Quik Stain Quality Check Acceptable [facility] Comment on above: Order Comment: BAL c onsult for cell differential and pathologist review. Please do flow cytometry if > 12% lymphocytes Performed By: #### H EMOGC #### [facility] [address] [address] Bal Reviewed By: Leonardo Peralta MD [facility] Comment on above: Order Comment: BAL c onsult for cell differential and pathologist review. Please do flow cytometry if > 12% lymphocytes Performed By: #### H EMOGC #### [facility] (DEFAULT) [address] [address] BKR BAL INTERPRETATION Cellular specimen comprised of alveolar macrophages and small lymphocytes. No definitive microorganisms are observed. Moderate degenerative changes. [facility] Comment on above: Order Comment: BAL c onsult for cell differential and pathologist review. Please do flow cytometry if > 12% lymphocytes Performed By: #### H EMOGC #### [facility] (DEFAULT) [address] [address] BKR DX CODE Use Ordering Normal [facility] Comment on above: Order Comment: BAL c onsult for cell differential and pathologist review. Please do flow cytometry if > 12% lymphocytes Performed By: #### H EMOGC #### [facility] (DEFAULT) [address] [address] Eosinophils/100 WBC (Bld) 0 % Normal [facility] Comment on above: Order Comment: BAL c onsult for cell differential and pathologist review. Please do flow cytometry if > 12% lymphocytes Performed By: #### H EMOGC #### [facility] (DEFAULT) [address] [address] Lymphocytes/100 WBC (Bld) 57 % Normal [facility] Comment on above: Order Comment: BAL c onsult for cell differential and pathologist review. Please do flow cytometry if > 12% lymphocytes Performed By: #### H EMOGC #### [facility] (DEFAULT) [address] [place] [address] Neutrophils/100 WBC (Bld) 11 % Normal [facility] Comment on above: Order Comment: CARRIE ro for cell differential and pathologist review. Please do flow cytometry if > 12% lymphocytes Performed By: #### H EMOGC #### [facility] (DEFAULT) [address] [place] [address] BRONCHOSCOPYon 09-02-2023 Radiology Study observation (narrative) [facility] Bacteria identified Cx Nom ( Bld)on 09-02-2023 Bacteria identified Cx Nom (Unsp spec) NO GROWTH DAY 5 OF 5 [facility] CBC,PLATELETSon 09-02-2023 Hematocrit (Bld) [Volume fraction] 39.9 % Normal 39.6-48.8 [facility] Comment on above: Performed By: #### H EMOGC #### [facility] (DEFAULT) [address] [place] [address] Hemoglobin (Bld) [Mass/Vol] 12.9 g/dL Low 13.4-16.8 [facility] Comment on above: Performed By: #### H EMOGC #### [facility] (DEFAULT) [address] [place] [address] MCV (RBC) [Entitic vol] 86.4 fL Normal 79.0-94.5 [facility] Comment on above: Performed By: #### H EMOGC #### [facility] (DEFAULT) [address] [place] [address] Mean Cell Hgb 27.9 pg Normal 26.1-33.3 [facility] Comment on above: Performed By: #### H EMOGC #### [facility] (DEFAULT) [address] [place] [address] Mean Cell Hgb Conc 32.3 g/dL Normal 31.9-36.5 [facility] Comment on above: Performed By: #### H EMOGC #### [facility] (DEFAULT) [address] [place] [address] Platelet mean volume (Bld) [Entitic vol] 9.5 fL Normal 8.7-12.3 [facility] Comment on above: Performed By: #### H EMO #### [facility] (DEFAULT) [address] [place] [address] Platelets (Bld) [#/Vol] 210 10*3/uL Normal 146-337 [facility] Comment on above: Performed By: #### H EMOGC #### [facility] (DEFAULT) [address] [place] [address] RBC (Bld) [#/Vol] 4.62 10*6/uL Normal 4.38-5.83 [facility] Comment on above: Performed By: #### H EMO #### [facility] (DEFAULT) [address] [place] [address] RBC Distribution 13.2 % Normal 10.9-14.3 [facility] Comment on above: Performed By: #### H EMO #### [facility] (DEFAULT) [address] [place] [address] WBC (Bld) [#/Vol] 4.12 10*3/uL Normal 3.73-10.10 [facility] Comment on above: Performed By: #### H EMOGC #### [facility] (DEFAULT) [address] [place] [address] Erythrocyte distribution width (RBC) [Ratio] 13.2 % 10.9 - 14.3 % [facility] Hematocrit (Bld) [Volume fraction] 39.9 % 39.6 - 48.8 % [facility] Hemoglobin (Bld) [Mass/Vol] 12.9 g/dL Low 13.4 - 16.8 g/dL [facility] Interpretation and review of laboratory results Abnormal [facility] MCH (RBC) [Entitic mass] 27.9 pg 26.1 - 33.3 pg [facility] MCHC (RBC) [Mass/Vol] 32.3 g/dL 31.9 - 36.5 g/dL [facility] MCV (RBC) [Entitic vol] 86.4 fL 79.0 - 94.5 fL [facility] Platelet mean volume (Bld) [Entitic vol] 9.5 fL 8.7 - 12.3 fL [facility] Platelets (Bld) [#/Vol] 210 10*3/uL 146 - 337 K/uL [facility] RBC (Bld) [#/Vol] 4.62 10*6/uL [facility] WBC (Bld) [#/Vol] 4.12 10*3/uL 3.73 - 10. 10 K/uL [facility] CHEM 7 (LYTES,BUN,CREA,GLUC) on 09-02-2023 Anion gap [Moles/Vol] 13 mmol/L Normal 7-17 [facility] Comment on above: Performed By: #### Y PNRP #### [facility] (DEFAULT) [address] [address] Chloride [Moles/Vol] 105 mmol/L Normal 98-108 [facility] Comment on above: Performed By: #### Y PNRP #### [facility] (DEFAULT) [address] [address] CO2 [Moles/Vol] 22 mmol/L Normal 21-31 [facility] Comment on above: Performed By: #### Y PNRP #### [facility] (DEFAULT) [address] [address] Creatinine [Mass/Vol] 1.25 mg/dL Normal 0.70-1.30 [facility] Comment on above: Performed By: #### Y PNRP #### [facility] (DEFAULT) [address] [address] GFR/1.73 sq M.predicted among non-blacks MDRD (S/P/Bld) [Vol rate/Area] 69 mL/min/{1.73_m2} Normal >=60 [facility] Comment on above: Result Comment: Repo rted eGFR is based on the CKD-EPI 2020 equation using creatinine, age, and sex. Performed By: #### Y PNRP #### [facility] (DEFAULT) [address] [place] [address] Glucose [Mass/Vol] 105 mg/dL High 70-99 [facility] Comment on above: Performed By: #### Y PNRP #### [facility] (DEFAULT) [address] [place] [address] Osmolality [Osmolality] 287 mosm/kg Normal 278-305 [facility] Comment on above: Performed By: #### Y PNRP #### [facility] (DEFAULT) [address] [place] [address] Potassium [Moles/Vol] 4.3 mmol/L Normal 3.5-5.0 [facility] Comment on above: Performed By: #### Y PNRP #### [facility] (DEFAULT) [address] [place] [address] Sodium [Moles/Vol] 136 mmol/L Normal 135-145 [facility] Comment on above: Performed By: #### Y PNRP #### [facility] (DEFAULT) [address] [place] [address] Urea nitrogen [Mass/Vol] 16 mg/dL Normal 7-25 [facility] Comment on above: Performed By: #### Y PNRP #### [facility] (DEFAULT) [address] [place] [address] Urea nitrogen/Creatinine [Mass ratio] 13 mg/mg Normal [facility] Comment on above: Performed By: #### Y PNRP #### [facility] (DEFAULT) [address] [place] [address] Anion gap [Moles/Vol] 13 mmol/L 7 - 17 mmol/L [facility] Chloride [Moles/Vol] 105 mmol/L 98 - 10 8 mmol/L [facility] CO2 [Moles/Vol] 22 mmol/L 21 - 31 mmol/L [facility] Creatinine [Mass/Vol] 1.25 mg/dL 0.70 - 1.30 mg/dL [facility] eGFR, CKD-EPI, Male 69 - [facility]F [facility] Glucose [Mass/Vol] 105 mg/dL High 70 - 99 mg/dL [facility] Osmolality Calc [Osmolality] 287 [facility] Potassium [Moles/Vol] 4.3 mmol/L 3.5 - 5.0 mmol/L [facility] Sodium [Moles/Vol] 136 mmol/L 135 - 145 mmol/L [facility] Urea nitrogen [Mass/Vol] 16 mg/dL 7 - 25 mg/dL [facility] Urea nitrogen/Creatinine [Mass ratio] 13 mg/mg [facility] CMV PCR,FLUIDS,URINE,EYE ETC on 09-02-2023 CMV by PCR Result Negative Normal Negative [facility] Comment on above: Result Comment: ADDITIONAL INFORMATION This test was developed and its performance characteristics determined by [facility] in a manner consistent with CLIA requirements. This test has not been cleared or approved by the U.S. Food and Drug Administration. Test Performed by: [facility] - [address] [address] Computer Builder: Roesndo Bose M.D. Ph.D.; CLIA# [id number] Performed By: #### T ACRO #### [facility] (DEFAULT) [address] [place] [address] CMV BY PCR SOURCE BAL RML Normal [facility] Comment on above: Performed By: #### T ACRO #### [facility] (DEFAULT) [address] [place] [address] CMV by PCR Result Negative Normal Negative [facility] Comment on above: Result Comment: ADDITIONAL INFORMATION This test was developed and its performance characteristics determined by [facility] in a manner consistent with CLIA requirements. This test has not been cleared or approved by the U.S. Food and Drug Administration. Test Performed by: [facility] - [address] [address] Computer Builder: Rosendo Bose M.D. Ph.D.; CLIA# [id number] Performed By: #### T ACRO #### [facility] (DEFAULT) [address] [address] CMV BY PCR SOURCE BAL LLL Normal [facility] Comment on above: Performed By: #### T ACRO #### [facility] (DEFAULT) [address] [place] [address] CYTOLOGY, NON-GYNon 09-02-20 CYTOLOGIC DIAGNOSIS [facility] Comment on above: Result Comment: A. B RONCHOALVEOLAR LAVAGE, LEFT LOWER LOBE (CYTOLOGY): FINAL DIAGNOSIS: No Malignant Cells Are Identified Hypocellular Specimen Performed By: #### N ONGNGRAEMEFROBERTA #### [facility] (DEFAULT) [address] [place] [address] Case Report [facility] Comment on above: Result Comment: [facility] Cytology Report Case: [id number] Authorizing Provider: Crow Diaz MD Collected: 09/02/2023 08:38 AM Ordering Location: [facility] Received: 09/02/2023 10:44 AM Pathologist: Sherice Jimenez MD Specimen: BRONCHOALVEOLAR LAVAGE, LLL BAL Performed By: #### N LITZY #### [facility] (DEFAULT) [address] [place] [address] Clinical History Renal transplant. Normal [facility] Comment on above: Performed By: #### N LITZY #### [facility] (DEFAULT) [address] [address] [facility] Comment on above: Result Comment: LLL BAL 1 ml hazy colorless fld unfixed 1 TP slide Pap stain For Immediate Release to Patient's MyChart? Yes Performed By: #### N ONGNNONFNA #### [facility] (DEFAULT) [address] [address] FUNGUS CULTUREon 09-02-2023 Bacteria identified Cx Nom (Unsp spec) Normal [facility] Comment on above: Order Comment: Ident ification was performed on the MALDI-TOF mass spectrometer Scytlyper. This test was developed by [facility]. It has not been cleared or approved by the FDA. The laboratory is regulated under CLIA as qualified to perform high-complexity testing. This test is used for clinical purposes. It should not be regarded as investigational or for research. Result Comment: [employer] [place] Histoplasma capsulatum Performed By: #### H EMOGC #### [facility] (DEFAULT) [address] [address] Bacteria identified Cx Nom (Unsp spec) NO GROWTH DAY 28 OF 28 Normal [facility] Comment on above: Order Comment: Pleas e draw at specified interval PRIOR to dose. Do not hold dose to wait for level. Specimens batched twice per day, (M-) and once per day weekends Method performed is a chemiluminescent microparticle immunoasssay on the [employer] i2000. The range is based on experience at [facility] and users should be aware that target concentrations vary widely depending on concomitant therapy, time post-transplant, and desired degree of immunosuppression. Performed By: #### T ACRO #### [facility] (DEFAULT) [address] [address] HEPATIC FUNCTION PANELon Albumin [Mass/Vol] 3.2 g/dL Low 3.5-5.0 [facility] Comment on above: Performed By: #### Y PNRP #### [facility] (DEFAULT) [address] [place] [address] ALP [Catalytic activity/Vol] 107 U/L Normal 32-126 [facility] Comment on above: Performed By: #### Y PNRP #### [facility] (DEFAULT) [address] [place] [address] ALT [Catalytic activity/Vol] 20 U/L Normal 10-52 [facility] Comment on above: Performed By: #### Y PNRP #### [facility] (DEFAULT) [address] [place] [address] AST [Catalytic activity/Vol] 31 U/L Normal 10-39 [facility] Comment on above: Performed By: #### Y PNRP #### [facility] (DEFAULT) [address] [place] [address] Bilirubin [Mass/Vol] 1.0 mg/dL Normal <1.5 [facility] Comment on above: Performed By: #### Y PNRP #### [facility] (DEFAULT) [address] [place] [address] Bilirubin.indirect [Mass/Vol] 0.3 mg/dL High <0.3 [facility] Comment on above: Performed By: #### Y PNRP #### [facility] (DEFAULT) [address] [place] [address] Protein [Mass/Vol] 6.6 g/dL Normal 6.4-8.3 [facility] Comment on above: Performed By: #### Y PNRP #### [facility] (DEFAULT) [address] [place] [address] Albumin [Mass/Vol] 3.2 g/dL Low 3.5 - 5.0 g/dL [facility] ALP [Catalytic activity/Vol] 107 U/L 32 - 126 U/L [facility] ALT [Catalytic activity/Vol] 20 U/L 10 - 52 U/L [facility] AST [Catalytic activity/Vol] 31 U/L 10 - 39 U/L [facility] Bilirubin [Mass/Vol] 1.0 mg/dL NINF - 1.5 mg/dL [facility] Bilirubin.direct [Mass/Vol] 0.3 mg/dL High NINF - 0.3 mg/dL [facility] Protein [Mass/Vol] 6.6 g/dL 6.4 - 8.3 g/dL [facility] HISTOPLASMA ANTIGEN, FLUIDon 09-02-2023 FH SOURCE BAL RML Normal [facility] Comment on above: Performed By: #### T ACRO #### [facility] (DEFAULT) [address] [address] Histo FLD interpretation Negative Normal [facility] Comment on above: Result Comment: ADDITIONAL INFORMATION Reference interval: None Detected Reportable Range: Positive Results reported in ng/mL from 0.20 ng/mL to 20.00 ng/mL Positive Results above 20.00 ng/mL are reported as 'Above the Limit of Quantification' Cross-reactions occur with Blastomyces spp., Coccidioides spp., and Paracoccidioides brasiliensis. This test was developed and its performance characteristics determined by [employer]. It has not been cleared or approved by the FDA; however, FDA clearance or approval is not currently required for clinical use. The results are not intended to be used as the sole means for clinical diagnosis or patient management decisions. Test Performed by: [employer] [address] [place] [address] Performed By: #### T ACRO #### [facility] (DEFAULT) [address] [address] Histoplasma Antigen, FLUID Not detected Normal [facility] Comment on above: Performed By: #### T ACRO #### [facility] (DEFAULT) [address] [place] [address] HISTOPLASMA ANTIGEN,URINEon 09-02-2023 H. capsulatum Ag (U) [Mass/Vol] Not detected ng/mL [facility] H. capsulatum Ag IA Ql (U) Not detected Not Detected [facility] HISTOPLASMA CAPSULATUM/BLAST OMYCES SPECIES,PCR FLUIDon 09-02-2023 HISTO/BLASTO RESULT Negative Normal Not Applicable [facility] Comment on above: Result Comment: A Ne gative result from BAL fluid does not rule out the presence of Histoplasma capsulatum because the sensitivity from this source is suboptimal. ADDITIONAL INFORMATION This test was developed and its performance characteristics determined by [facility] in a manner consistent with CLIA requirements. This test has not been cleared or approved by the U.S. Food and Drug Administration. Test Performed by: [place] [address] Computer Builder: Rosendo Bose M.D. Ph.D.; CLIA# [id number] Performed By: #### T ACRO #### [facility] (DEFAULT) [address] [address] Source BAL RML Normal [facility] Comment on above: Performed By: #### T ACRO #### [facility] (DEFAULT) [address] [address] HIV 1 AND 2 ANTIBODIES/P24 A NTIGENOrdered By: Wilma Luque on 09-02-2023 HIV 1+2 Ab+HIV1 p24 Ag IA Ql Non-Reactive Non Reactive [facility] Interpretation and review of laboratory results Normal [facility] HIV 1 AND 2 ANTIBODIES/P24 A NTIGENon 09-02-2023 HIV-1/HIV-2 Ab With p24 Antigen Non-Reactive Normal Non Reactive [facility] Comment on above: Performed By: #### L [id number] ####[facility] (DEFAULT)[address] [address] LEGIONELLA CULTUREon 023 Bacteria identified Cx Nom (Unsp spec) NO GROWTH DAY 7 OF 7 Normal [facility] Comment on above: Performed By: #### H EMO #### [facility] (DEFAULT) [address] [place] [address] Bacteria identified Cx Nom (Unsp spec) NO GROWTH DAY 7 OF 7 Normal [facility] Comment on above: Order Comment: BAL l egionella culture Performed By: #### L EGN #### [facility] (DEFAULT) [address] [place] [address] LEGIONELLA PCRon 09-02-2023 Legionella species, Culture BAL RML Normal [facility] Comment on above: Performed By: #### T ACRO #### [facility] (DEFAULT) [address] [address] Legionella, pcr result Negative Normal Not Applicable [facility] Comment on above: Result Comment: ADDITIONAL INFORMATION This test was developed and its performance characteristics determined by [facility] in a manner consistent with CLIA requirements. This test has not been cleared or approved by the U.S. Food and Drug Administration. Test Performed by: [facility] - [address] [address] Computer Builder: Rosendo Bose M.D. Ph.D.; CLIA# [id number] Performed By: #### T ACRO #### [facility] (DEFAULT) [address] [place] [address] LOWER RESPIRATORY CULTURE, B ACTERIALon 09-02-2023 Bacteria identified Cx Nom (Unsp spec) NO GROWTH DAY 2 OF 2 Normal [facility] Comment on above: Performed By: #### T ACRO #### [facility] (DEFAULT) [address] [address] Microscopic observation Gram stain Nom (Unsp spec) Normal [facility] Comment on above: Result Comment: Cyto centrifuge preparation Neutrophils, Rare Red Blood Cells Present No organisms seen Performed By: #### T ACRO #### [facility] (DEFAULT) [address] [place] [address] Bacteria identified Cx Nom (Unsp spec) NO GROWTH DAY 2 OF 2 Normal [facility] Comment on above: Order Comment: BAL b acterial respiratory culture Performed By: #### H EMOQUINTIN #### [facility] (DEFAULT) [address] [place] [address] Microscopic observation Gram stain Nom (Unsp spec) Normal [facility] Comment on above: Order Comment: BAL b acterial respiratory culture Result Comment: Cyto centrifuge preparation Neutrophils, Moderate Red Blood Cells Present No organisms seen Performed By: #### H ADELE #### [facility] (DEFAULT) [address] [place] [address] MAGNESIUMon 09-02-2023 Magnesium [Mass/Vol] 1.7 mg/dL Normal 1.6-2.6 [facility] Comment on above: Performed By: #### L EGN #### [facility] (DEFAULT) [address] [place] [address] Interpretation and review of laboratory results Normal [facility] Magnesium [Mass/Vol] 1.7 mg/dL 1.6 - 2 .6 mg/dL [facility] No Panel Informationon 09-02 Interpretation and review of laboratory results Abnormal [facility] PNEUMOCYSTIS JIROVECI,PCRon 09-02-2023 PN Report Status DNR Normal [facility] Comment on above: Performed By: #### T ACRO #### [facility] (DEFAULT) [address] [place] [address] PN Specimen Source BAL RML Normal [facility] Comment on above: Performed By: #### T ACRO #### [facility] (DEFAULT) [address] [place] [address] Pneum jiroveci comment DNR Normal [facility] Comment on above: Performed By: #### T ACRO #### [facility] (DEFAULT) [address] [address] Pneumocystis jiroveci,PCR result Negative Normal Not Applicable [facility] Comment on above: Result Comment: ADDITIONAL INFORMATION This test was developed and its performance characteristics determined by [facility] in a manner consistent with CLIA requirements. This test has not been cleared or approved by the U.S. Food and Drug Administration. Test Performed by: [place] [address] Computer Builder: Rosendo Bose M.D. Ph.D.; IA# [id number] Performed By: #### T ACRO #### [facility] (DEFAULT) [address] [address] PN Report Status DNR Normal [facility] Comment on above: Performed By: #### Y PNRP #### [facility] (DEFAULT) [address] [address] PN Specimen Source BAL LLL Normal [facility] Comment on above: Performed By: #### Y PNRP #### [facility] (DEFAULT) [address] [address] Pneum jiroveci comment DNR Normal [facility] Comment on above: Performed By: #### Y PNRP #### [facility] (DEFAULT) [address] [address] Pneumocystis jiroveci,PCR result Negative Normal Not Applicable [facility] Comment on above: Result Comment: ADDITIONAL INFORMATION This test was developed and its performance characteristics determined by [facility] in a manner consistent with CLIA requirements. This test has not been cleared or approved by the U.S. Food and Drug Administration. Test Performed by: [place] [address] Computer Builder: Rosendo Bose M.D. Ph.D.; [facility]# [id number] Performed By: #### Y [facility] #### [facility] (DEFAULT) [address] [address] TACROLIMUS LEVEL, TROUGH (NE E DRUG LEVEL)on 09-02-2023 Interpretation and review of laboratory results Normal [facility] Tacrolimus (Bld) [Mass/Vol] 4.2 ng/mL [facility] Tacrolimus, Trough 4.2 ng/mL Normal [facility] Susana ow Transplant: 4.0-12.0, Therapeutic: 5.0-15.0 [facility] Comment on above: Order Comment: Pleas e draw at specified interval PRIOR to dose. Do not hold dose to wait for level. Specimens batched twice per day, (M-) and once per day weekends Method performed is a chemiluminescent microparticle immunoasssay on the [employer] i2000. The range is based on experience at [facility] and users should be aware that target concentrations vary widely depending on concomitant therapy, time post-transplant, and desired degree of immunosuppression. Performed By: #### T ACRO #### [facility] (DEFAULT) [address] [address] CBC,PLATELETSon 09-01-2023 Hematocrit (Bld) [Volume fraction] 38.9 % Low 39.6-48.8 [facility] Comment on above: Performed By: #### H [facility] #### [facility] (DEFAULT) [address] [address] Hemoglobin (Bld) [Mass/Vol] 12.7 g/dL Low 13.4-16.8 [facility] Comment on above: Performed By: #### H EMO #### [facility] (DEFAULT) [address] [address] MCV (RBC) [Entitic vol] 84.6 fL Normal 79.0-94.5 [facility] Comment on above: Performed By: #### H EMOGC #### [facility] (DEFAULT) [address] [place] [address] Mean Cell Hgb 27.6 pg Normal 26.1-33.3 [facility] Comment on above: Performed By: #### H EMOGC #### [facility] (DEFAULT) [address] [address] Mean Cell Hgb Conc 32.6 g/dL Normal 31.9-36.5 [facility] Comment on above: Performed By: #### H EMOGC #### [facility] (DEFAULT) [address] [address] Platelet mean volume (Bld) [Entitic vol] 9.4 fL Normal 8.7-12.3 [facility] Comment on above: Performed By: #### H EMOGC #### [facility] (DEFAULT) [address] [address] Platelets (Bld) [#/Vol] 209 10*3/uL Normal 146-337 [facility] Comment on above: Performed By: #### H EMOGC #### [facility] (DEFAULT) [address] [address] RBC (Bld) [#/Vol] 4.60 10*6/uL Normal 4.38-5.83 [facility] Comment on above: Performed By: #### H EMOGC #### [facility] (DEFAULT) [address] [address] RBC Distribution 13.4 % Normal 10.9-14.3 [facility] Comment on above: Performed By: #### H EMOGC #### [facility] (DEFAULT) [address] [address] WBC (Bld) [#/Vol] 4.41 10*3/uL Normal 3.73-10.10 [facility] Comment on above: Performed By: #### H EMOGC #### [facility] (DEFAULT) [address] [place] [address] Erythrocyte distribution width (RBC) [Ratio] 13.4 % 10.9 - 14.3 % [facility] Hematocrit (Bld) [Volume fraction] 38.9 % Low 39.6 - 48.8 % [facility] Hemoglobin (Bld) [Mass/Vol] 12.7 g/dL Low 13.4 - 16.8 g/dL [facility] Interpretation and review of laboratory results Abnormal [facility] MCH (RBC) [Entitic mass] 27.6 pg 26.1 - 33.3 pg [facility] MCHC (RBC) [Mass/Vol] 32.6 g/dL 31.9 - 36.5 g/dL [facility] MCV (RBC) [Entitic vol] 84.6 fL 79.0 - 94.5 fL [facility] Platelet mean volume (Bld) [Entitic vol] 9.4 fL 8.7 - 12.3 fL [facility] Platelets (Bld) [#/Vol] 209 10*3/uL 146 - 337 K/uL [facility] RBC (Bld) [#/Vol] 4.60 10*6/uL [facility] WBC (Bld) [#/Vol] 4.41 10*3/uL 3.73 - 10. 10 K/uL [facility] CHEM 7 (LYTES,BUN,CREA,GLUC) on 09-01-2023 Anion gap [Moles/Vol] 14 mmol/L Normal 7-17 [facility] Comment on above: Performed By: ###Walter UNDERWOOD #### [facility] (DEFAULT) [address] [place] [address] Chloride [Moles/Vol] 103 mmol/L Normal 98-108 [facility] Comment on above: Performed By: ###Walter UNDERWOOD #### [facility] (DEFAULT) [address] [place] [address] CO2 [Moles/Vol] 21 mmol/L Normal 21-31 [facility] Comment on above: Performed By: ###Walter UNDERWOOD #### [facility] (DEFAULT) [address] [place] [address] Creatinine [Mass/Vol] 1.16 mg/dL Normal 0.70-1.30 [facility] Comment on above: Performed By: #### Vale UNDERWOOD #### [facility] (DEFAULT) [address] [place] [address] GFR/1.73 sq M.predicted among non-blacks MDRD (S/P/Bld) [Vol rate/Area] 76 mL/min/{1.73_m2} Normal >=60 [facility] Comment on above: Result Comment: Repo rted eGFR is based on the CKD-EPI 2020 equation using creatinine, age, and sex. Performed By: ###Walter UNDERWOOD #### [facility] (DEFAULT) [address] [place] [address] Glucose [Mass/Vol] 117 mg/dL High 70-99 [facility] Comment on above: Performed By: ###Walter UNDERWOOD #### [facility] (DEFAULT) [address] [place] [address] Osmolality [Osmolality] 285 mosm/kg Normal 278-305 [facility] Comment on above: Performed By: ###Walter UNDERWOOD #### [facility] (DEFAULT) [address] [place] [address] Potassium [Moles/Vol] 4.2 mmol/L Normal 3.5-5.0 [facility] Comment on above: Performed By: #### Vale UNDERWOOD #### [facility] (DEFAULT) [address] [place] [address] Sodium [Moles/Vol] 134 mmol/L Low 135-145 [facility] Comment on above: Performed By: #### Vale UNDERWOOD #### [facility] (DEFAULT) [address] [place] [address] Urea nitrogen [Mass/Vol] 18 mg/dL Normal 7-25 [facility] Comment on above: Performed By: #### G YASMINE #### [facility] (DEFAULT) [address] [place] [address] Urea nitrogen/Creatinine [Mass ratio] 16 mg/mg Normal [facility] Comment on above: Performed By: #### G YASMINE #### [facility] (DEFAULT) [address] [place] [address] Anion gap [Moles/Vol] 14 mmol/L 7 - 17 mmol/L [facility] Chloride [Moles/Vol] 103 mmol/L 98 - 10 8 mmol/L [facility] CO2 [Moles/Vol] 21 mmol/L 21 - 31 mmol/L [facility] Creatinine [Mass/Vol] 1.16 mg/dL 0.70 - 1.30 mg/dL [facility] eGFR, CKD-EPI, Male 77 - PINF [facility] Glucose [Mass/Vol] 117 mg/dL High 70 - 99 mg/dL [facility] Osmolality Calc [Osmolality] 285 [facility] Potassium [Moles/Vol] 4.2 mmol/L 3.5 - 5.0 mmol/L [facility] Sodium [Moles/Vol] 134 mmol/L Low 135 - 145 mmol/L [facility] Urea nitrogen [Mass/Vol] 18 mg/dL 7 - 25 mg/dL [facility] Urea nitrogen/Creatinine [Mass ratio] 16 mg/mg [facility] CRYPTOCOCCAL ANTIGENon 09-01 Cryptococcus Antigen,Serum Negative Normal Negative [facility] Comment on above: Performed By: #### H EMO #### [facility] (DEFAULT) [address] [place] [address] Cryptococcus sp Ag Ql (S) Negative Negative [facility] Interpretation and review of laboratory results Normal [facility] HEPATIC FUNCTION PANELon Albumin [Mass/Vol] 3.3 g/dL Low 3.5-5.0 [facility] Comment on above: Performed By: #### C HM7, MGO, HFP ####[facility] (DEFAULT)[address] [place] [address] ALP [Catalytic activity/Vol] 112 U/L Normal 32-126 [facility] Comment on above: Performed By: #### C HM7, MGO, HFP ####[facility] (DEFAULT)[address] [place] [address] ALT [Catalytic activity/Vol] 21 U/L Normal 10-52 [facility] Comment on above: Performed By: #### C HM7, MGO, HFP ####[facility] (DEFAULT)[address] [place] [address] AST [Catalytic activity/Vol] 29 U/L Normal 10-39 [facility] Comment on above: Performed By: #### C HM7, MGO, HFP ####[facility] (DEFAULT)[address] [place] [address] Bilirubin [Mass/Vol] 1.0 mg/dL Normal <1.5 [facility] [facility] Comment on above: Performed By: #### C HM7, MGO, HFP ####[facility] (DEFAULT)[address] [place] [address] Bilirubin.indirect [Mass/Vol] 0.2 mg/dL Normal <0.3 [facility] Comment on above: Performed By: #### C HM7, MGO, HFP ####[facility] (DEFAULT)[address] [place] [address] Protein [Mass/Vol] 6.8 g/dL Normal 6.4-8.3 [facility] Comment on above: Performed By: #### C HM7, MGO, HFP ####[facility] (DEFAULT)[address] [place] [address] Albumin [Mass/Vol] 3.3 g/dL Low 3.5 - 5.0 g/dL [facility] ALP [Catalytic activity/Vol] 112 U/L 32 - 126 U/L [facility] ALT [Catalytic activity/Vol] 21 U/L 10 - 52 U/L [facility] AST [Catalytic activity/Vol] 29 U/L 10 - 39 U/L [facility] Bilirubin [Mass/Vol] 1.0 mg/dL NINF - 1.5 mg/dL [facility] Bilirubin.direct [Mass/Vol] 0.2 mg/dL NINF - 0.3 mg/dL [facility] Protein [Mass/Vol] 6.8 g/dL 6.4 - 8.3 g/dL [facility] L. pneumophila 1 Ag IA Ql (U )Ordered By: Carolin Miles on 09-01-2023 Interpretation and review of laboratory results Normal [facility] LEGIONELLA URINARY AGOrdered By: Carolin Miles on 09-01-2023 L. pneumophila 1 Ag IA Ql (U) Negative Negative [facility] MAGNESIUMon 09-01-2023 Magnesium [Mass/Vol] 1.6 mg/dL Normal 1.6-2.6 [facility] Comment on above: Performed By: #### G YASMINE #### [facility] (DEFAULT) [address] [place] [address] Interpretation and review of laboratory results Normal [facility] Magnesium [Mass/Vol] 1.6 mg/dL 1.6 - 2 .6 mg/dL [facility] No Panel Informationon 09-01 Interpretation and review of laboratory results Abnormal [facility] PARVOVIRUS (B19) DNA, PCR, B LOODon 09-01-2023 PARVOVIRUS B19 BY RAPID PCR Not detected Normal Not Detected [facility] Comment on above: Result Comment: The primers/probe used in this assay will detect parvovirus B19 and V9 (genotypes 1 # 3) but may not detect parvovirus genotype 2. The majority of circulating Parvovirus B19 strains in the [facility] are genotype 1. Genotype 2 is not believed to circulate widely in the [place], but has been associated with similar clinical features as genotype 1. Genotype 3 is most prevalent in some countries. This test was developed and its analytical performance characteristics have been determined by [employer] [place], [place]. It has not been cleared or approved by the FDA. This assay has been validated pursuant to the CLIA regulations and is used for clinical purposes. Test Performed at: [employer] [facility] [address] [place], [place] Ramon Benavides M.D., Ph.D.,Director of Laboratories Performed By: #### Vale UNDERWOOD #### [facility] (DEFAULT) [address] [place] [address]71 NE SPEC SOURCE Whole Blood Normal [facility] Comment on above: Performed By: #### Vale UNDERWOOD #### [facility] (DEFAULT) [address] [place] [address] ASPERGILLUS (GALACTOMANNAN), ANTIGENon 08-31-2023 Aspergillus Antigen <0.500 Normal <0.5 [facility] Comment on above: Result Comment: ADDITIONAL INFORMATION This is a qualitative test and the resulted index value is not indicative of disease severity. Serial testing is recommended for patients at high risk for invasive aspergillosis. This assay was performed using the FDA-cleared Bio-Green Is Good Platelia Aspergillus Galactomannan EIA. Test Performed by: [place] [id number] Computer Builder: Rosendo Bose M.D. Ph.D.; CLIA# [id number] Performed By: #### Y PNRP #### [facility] (DEFAULT) [address] [place] [address] CBC,PLATELETSon 08-31-2023 Hematocrit (Bld) [Volume fraction] 39.4 % Low 39.6-48.8 [facility] Comment on above: Performed By: #### T ACRO #### [facility] (DEFAULT) [address] [place] [address]143 Hemoglobin (Bld) [Mass/Vol] 12.8 g/dL Low 13.4-16.8 [facility] Comment on above: Performed By: #### T ACRO #### [facility] (DEFAULT) [address] [place] [address] 85487 MCV (RBC) [Entitic vol] 85.1 fL Normal 79.0-94.5 [facility] Comment on above: Performed By: #### T ACRO #### [facility] (DEFAULT) [address] [place] [address] 04349 Mean Cell Hgb 27.6 pg Normal 26.1-33.3 [facility] Comment on above: Performed By: #### T ACRO #### [facility] (DEFAULT) [address] [place] [address] 56191 Mean Cell Hgb Conc 32.5 g/dL Normal 31.9-36.5 [facility] Comment on above: Performed By: #### T ACRO #### [facility] (DEFAULT) [address] [place] [address] 87819 Platelet mean volume (Bld) [Entitic vol] 9.6 fL Normal 8.7-12.3 [facility] Comment on above: Performed By: #### T ACRO #### [facility] (DEFAULT) [address] [address] Platelets (Bld) [#/Vol] 228 10*3/uL Normal 146-337 [facility] Comment on above: Performed By: #### T ACRO #### [facility] (DEFAULT) [address] [place] [address] 55358 RBC (Bld) [#/Vol] 4.63 10*6/uL Normal 4.38-5.83 [facility] Comment on above: Performed By: #### T ACRO #### [facility] (DEFAULT) [address] [place] [address] 33128 RBC Distribution 13.3 % Normal 10.9-14.3 [facility] Comment on above: Performed By: #### T ACRO #### [facility] (DEFAULT) [address] [place] [address] WBC (Bld) [#/Vol] 4.77 10*3/uL Normal 3.73-10.10 [facility] Comment on above: Performed By: #### T ACRO #### [facility] (DEFAULT) [address] [place] [address] Erythrocyte distribution width (RBC) [Ratio] 13.3 % 10.9 - 14.3 % [facility] Hematocrit (Bld) [Volume fraction] 39.4 % Low 39.6 - 48.8 % [facility] Hemoglobin (Bld) [Mass/Vol] 12.8 g/dL Low 13.4 - 16.8 g/dL [facility] Interpretation and review of laboratory results Abnormal [facility] MCH (RBC) [Entitic mass] 27.6 pg 26.1 - 33.3 pg [facility] MCHC (RBC) [Mass/Vol] 32.5 g/dL 31.9 - 36.5 g/dL [facility] MCV (RBC) [Entitic vol] 85.1 fL 79.0 - 94.5 fL [facility] Platelet mean volume (Bld) [Entitic vol] 9.6 fL 8.7 - 12.3 fL [facility] Platelets (Bld) [#/Vol] 228 10*3/uL 146 - 337 K/uL [facility] RBC (Bld) [#/Vol] 4.63 10*6/uL [facility] WBC (Bld) [#/Vol] 4.77 10*3/uL 3.73 - 10. 10 K/uL [facility] CHEM 7 (LYTES,BUN,CREA,GLUC) on 08-31-2023 Anion gap [Moles/Vol] 13 mmol/L Normal 7-17 [facility] Comment on above: Performed By: #### T ACRO #### [facility] (DEFAULT) [address] [place] [address] 96680 Chloride [Moles/Vol] 102 mmol/L Normal 98-108 [facility] Comment on above: Performed By: #### T ACRO #### [facility] (DEFAULT) [address] [place] [address] 51920 CO2 [Moles/Vol] 23 mmol/L Normal 21-31 [facility] Comment on above: Performed By: #### T ACRO #### [facility] (DEFAULT) [address] [place] [address] 35809 Creatinine [Mass/Vol] 1.37 mg/dL High 0.70-1.30 [facility] Comment on above: Performed By: #### T ACRO #### [facility] (DEFAULT) [address] [place] [address] 77127 GFR/1.73 sq M.predicted among non-blacks MDRD (S/P/Bld) [Vol rate/Area] 62 mL/min/{1.73_m2} Normal >=60 [facility] Comment on above: Result Comment: Repo rted eGFR is based on the CKD-EPI 2020 equation using creatinine, age, and sex. Performed By: #### T ACRO #### [facility] (DEFAULT) [address] [place] [address]6662 Glucose [Mass/Vol] 112 mg/dL High 70-99 [facility] Comment on above: Performed By: #### T ACRO #### [facility] (DEFAULT) [address] [place] [address] 85897 Osmolality [Osmolality] 284 mosm/kg Normal 278-305 [facility] Comment on above: Performed By: #### T ACRO #### [facility] (DEFAULT) [address] [place] [address] 12231 Potassium [Moles/Vol] 4.4 mmol/L Normal 3.5-5.0 [facility] Comment on above: Performed By: #### T ACRO #### [facility] (DEFAULT) [address] [place] [address] Sodium [Moles/Vol] 134 mmol/L Low 135-145 [facility] Comment on above: Performed By: #### T ACRO #### [facility] (DEFAULT) [address] [place] [address] Urea nitrogen [Mass/Vol] 16 mg/dL Normal 7-25 [facility] Comment on above: Performed By: #### T ACRO #### [facility] (DEFAULT) [address] [place] [address] Urea nitrogen/Creatinine [Mass ratio] 12 mg/mg Normal [facility] Comment on above: Performed By: #### T ACRO #### [facility] (DEFAULT) [address] [place] [address] Anion gap [Moles/Vol] 13 mmol/L 7 - 17 mmol/L [facility] Chloride [Moles/Vol] 102 mmol/L 98 - 10 8 mmol/L [facility] CO2 [Moles/Vol] 23 mmol/L 21 - 31 mmol/L [facility] Creatinine [Mass/Vol] 1.37 mg/dL High 0.70 - 1.30 mg/dL [facility] eGFR, CKD-EPI, Male 62 - [facility]F [facility] Glucose [Mass/Vol] 112 mg/dL High 70 - 99 mg/dL [facility] Osmolality Calc [Osmolality] 284 [facility] Potassium [Moles/Vol] 4.4 mmol/L 3.5 - 5.0 mmol/L [facility] Sodium [Moles/Vol] 134 mmol/L Low 135 - 145 mmol/L [facility] Urea nitrogen [Mass/Vol] 16 mg/dL 7 - 25 mg/dL [facility] Urea nitrogen/Creatinine [Mass ratio] 12 [facility]BDOMEN/PELVIS WITHOUT CO NTRASTon [...] Adrenals: Adrenal glands are unremarkable. Kidneys: The [place] kidneys are atrophic. No stones or hydronephrosis. No focal lesions noted within the [place] kidneys on this noncontrast study. Renovascular calcifications [...] have reviewed and approved this report. Normal [facility] CT Abdomen and Pelvis WO con traston 08-31-2023 RADIOLOGY RADIOLOGY [facility] Radiology Study observation (narrative) [facility] Pelvis WO con trastOrdered By: Chavez Larkin on 08-31-2023 [facility] Work Phone: CT CHEST WITHOUT CONTRASTon [...] likely reactive. 4. Coronary artery disease. Normal [facility] CT Chest WO contraston 08-31 RADIOLOGY RADIOLOGY [facility] Radiology Study observation (narrative) [facility] CT Chest WO contrastOrdered By: Daisha Patterson on 08-31-2023 [facility] Work Phone: FERRITINon 08-31-2023 Ferritin [Mass/Vol] 409.0 ng/mL High 10.5 - 3 07.3 ng/mL [facility] Interpretation and review of laboratory results Abnormal [facility] Ferritin [Mass/Vol] 409.0 ng/mL High 10.5-307.3 [facility] Comment on above: Performed By: #### T ACRO #### [facility] (DEFAULT) [address] [place] [address] 91031 HEPATIC FUNCTION PANELon Albumin [Mass/Vol] 3.3 g/dL Low 3.5-5.0 [facility] Comment on above: Performed By: #### T ACRO #### [facility] (DEFAULT) [address] [place] [address] 23974 ALP [Catalytic activity/Vol] 113 U/L Normal 32-126 [facility] Comment on above: Performed By: #### T ACRO #### [facility] (DEFAULT) [address] [place] [address] 24278 ALT [Catalytic activity/Vol] 25 U/L Normal 10-52 [facility] Comment on above: Performed By: #### T ACRO #### [facility] (DEFAULT) [address] [place] [address] 98354 AST [Catalytic activity/Vol] 31 U/L Normal 10-39 [facility] Comment on above: Performed By: #### T ACRO #### [facility] (DEFAULT) [address] [place] [address] 22747 Bilirubin [Mass/Vol] 1.1 mg/dL Normal <1.5 [facility] Comment on above: Performed By: #### T ACRO #### [facility] (DEFAULT) [address] [place] [address] 90063 Bilirubin.indirect [Mass/Vol] 0.3 mg/dL High <0.3 [facility] Comment on above: Performed By: #### T ACRO #### [facility] (DEFAULT) [address] [place] [address] 31024 Protein [Mass/Vol] 7.0 g/dL Normal 6.4-8.3 [facility] Comment on above: Performed By: #### T ACRO #### [facility] (DEFAULT) [address] [place] [address] 18683 Albumin [Mass/Vol] 3.3 g/dL Low 3.5 - 5.0 g/dL [facility] ALP [Catalytic activity/Vol] 113 U/L 32 - 126 U/L [facility] ALT [Catalytic activity/Vol] 25 U/L 10 - 52 U/L [facility] AST [Catalytic activity/Vol] 31 U/L 10 - 39 U/L [facility] Bilirubin [Mass/Vol] 1.1 mg/dL NINF - 1.5 mg/dL [facility] Bilirubin.direct [Mass/Vol] 0.3 mg/dL High NINF - 0.3 mg/dL [facility] Protein [Mass/Vol] 7.0 g/dL 6.4 - 8.3 g/dL [facility] LEGIONELLA URINARY AGon - Legionella Urinary Antigen Negative Normal Negative [facility] Comment on above: Performed By: #### T ACRO #### [facility] (DEFAULT) [address] [place] [address] 88797 MAGNESIUMon 08-31-2023 Magnesium [Mass/Vol] 1.7 mg/dL Normal 1.6-2.6 [facility] Comment on above: Performed By: #### T ACRO #### [facility] (DEFAULT) [address] [place] [address]99 Interpretation and review of laboratory results Normal [facility] Magnesium [Mass/Vol] 1.7 mg/dL 1.6 - 2 .6 mg/dL [facility] No Panel Informationon 08-31 Interpretation and review of laboratory results Abnormal [facility] PROCALCITONINon 08-31-2023 Interpretation and review of laboratory results Normal [facility] Procalcitonin [Mass/Vol] 0.23 ng/mL NINF - 0.50 ng/mL [facility] Procalcitonin 0.23 ng/mL Normal <0.50 [facility] Comment on above: Result Comment: Proc [...] and trend procalcitonin in various clinical settings. [email or web address]/[email or web address]/[email or web address]?[email or web address]=/[email or web address]/[email or web address]/Documents/[email or web address] Two common cutoffs associated with bacterial infections are as follows. Respiratory tract infections: >0.25 ng/mL Sepsis/septic shock: >0.5 ng/mL Procalcitonin should not be used alone as a diagnostic tool, however. All procalcitonin results should be interpreted in association with the patients clinical condition and all laboratory findings. Performed By: #### T ACRO #### [facility] (DEFAULT) [address] [place] [address] TACROLIMUS LEVEL, TROUGH (NE E DRUG LEVEL)Ordered By: Yanira Marcum on 08-31-2023 Interpretation and review of laboratory results Normal [facility] Tacrolimus (Bld) [Mass/Vol] 5.9 ng/mL [facility] TACROLIMUS LEVEL, TROUGH (NE E DRUG LEVEL)on 08-31-2023 Tacrolimus, Trough 5.9 ng/mL Normal [facility] Susana ow Transplant: 4.0-12.0, Therapeutic: 5.0-15.0 [facility] Comment on above: Order Comment: Pleas e draw at specified interval PRIOR to dose. Do not hold dose to wait for level. Specimens batched twice per day, (M-F) and once per day weekendsMethod performed is a chemiluminescent microparticle immunoasssay on the [employer] i2000.The range is based on experience at [facility] and users should be aware that target concentrations vary widely depending on concomitant therapy, time post-transplant, and desired degree of immunosuppression. Performed By: #### T ACRO ####[facility] (DEFAULT)[address] [place] [address] 22292 URINE CULTUREOrdered By: Jorge crowe Held on 08-31-2023 Bacteria identified Cx Nom (Unsp spec) No Growth [facility] DARYL AURIS SCREEN BY PCRO rdered By: Mynor Alejandro on 08-30-2023 Daryl auris Screen by PCR Not detected Not Detected [facility] Interpretation and review of laboratory results Normal [facility] CBC,PLATELETSon 08-30-2023 Hematocrit (Bld) [Volume fraction] 41.3 % Normal 39.6-48.8 [facility] Comment on above: Performed By: #### G YASMINE #### [facility] (DEFAULT) [address] [place] [address] 21553 Hemoglobin (Bld) [Mass/Vol] 13.2 g/dL Low 13.4-16.8 [facility] Comment on above: Performed By: #### Vale UNDERWOOD #### [facility] (DEFAULT) [address] [place] [address] 34686 MCV (RBC) [Entitic vol] 85.5 fL Normal 79.0-94.5 [facility] Comment on above: Performed By: #### Vale UNDERWOOD #### [facility] (DEFAULT) [address] [place] [address] 56078 Mean Cell Hgb 27.3 pg Normal 26.1-33.3 [facility] Comment on above: Performed By: #### G ASAASHISH #### [facility] (DEFAULT) [address] [place] [address] 70244 Mean Cell Hgb Conc 32.0 g/dL Normal 31.9-36.5 [facility] Comment on above: Performed By: #### Vale UNDERWOOD #### [facility] (DEFAULT) [address] [place] [address] 06606 Platelet mean volume (Bld) [Entitic vol] 9.2 fL Normal 8.7-12.3 [facility] Comment on above: Performed By: #### Vale UNDERWOOD #### [facility] (DEFAULT) [address] [place] [address] 19477 Platelets (Bld) [#/Vol] 235 10*3/uL Normal 146-337 [facility] Comment on above: Performed By: #### aVle UNDERWOOD #### [facility] (DEFAULT) [address] [address] RBC (Bld) [#/Vol] 4.83 10*6/uL Normal 4.38-5.83 [facility] Comment on above: Performed By: ###Walter UNDERWOOD #### [facility] (DEFAULT) [address] [place] [address] 08125 RBC Distribution 13.3 % Normal 10.9-14.3 [facility] Comment on above: Performed By: ###Walter UNDERWOOD #### [facility] (DEFAULT) [address] [place] [address] 04896 WBC (Bld) [#/Vol] 4.96 10*3/uL Normal 3.73-10.10 [facility] Comment on above: Performed By: ###Walter UNDERWOOD #### [facility] (DEFAULT) [address] [address] Erythrocyte distribution width (RBC) [Ratio] 13.3 % 10.9 - 14.3 % [facility] Hematocrit (Bld) [Volume fraction] 41.3 % 39.6 - 48.8 % [facility] Hemoglobin (Bld) [Mass/Vol] 13.2 g/dL Low 13.4 - 16.8 g/dL [facility] Interpretation and review of laboratory results Abnormal [facility] MCH (RBC) [Entitic mass] 27.3 pg 26.1 - 33.3 pg [facility] MCHC (RBC) [Mass/Vol] 32.0 g/dL 31.9 - 36.5 g/dL [facility] MCV (RBC) [Entitic vol] 85.5 fL 79.0 - 94.5 fL [facility] Platelet mean volume (Bld) [Entitic vol] 9.2 fL 8.7 - 12.3 fL [facility] Platelets (Bld) [#/Vol] 235 10*3/uL 146 - 337 K/uL [facility] RBC (Bld) [#/Vol] 4.83 10*6/uL [facility] WBC (Bld) [#/Vol] 4.96 10*3/uL 3.73 - 10. 10 K/uL [facility] CHEM 7 (LYTES,BUN,CREA,GLUC) on 08-30-2023 Anion gap [Moles/Vol] 14 mmol/L Normal 7-17 [facility] Comment on above: Performed By: #### T ACRO #### [facility] (DEFAULT) [address] [place] [address] 51910 Chloride [Moles/Vol] 102 mmol/L Normal 98-108 [facility] Comment on above: Performed By: #### T ACRO #### [facility] (DEFAULT) [address] [place] [address] 13109 CO2 [Moles/Vol] 20 mmol/L Low 21-31 [facility] Comment on above: Performed By: #### T ACRO #### [facility] (DEFAULT) [address] [place] [address] 45167 Creatinine [Mass/Vol] 1.56 mg/dL High 0.70-1.30 [facility] Comment on above: Performed By: #### T ACRO #### [facility] (DEFAULT) [address] [place] [address] 83697 GFR/1.73 sq M.predicted among non-blacks MDRD (S/P/Bld) [Vol rate/Area] 53 mL/min/{1.73_m2} Low >=60 [facility] Comment on above: Result Comment: Repo rted eGFR is based on the CKD-EPI 2020 equation using creatinine, age, and sex. Performed By: #### T ACRO #### [facility] (DEFAULT) [address] [place] [address] 70669 Glucose [Mass/Vol] 123 mg/dL High 70-99 [facility] Comment on above: Performed By: #### T ACRO #### [facility] (DEFAULT) [address] [place] [address] 61270 Osmolality [Osmolality] 281 mosm/kg Normal 278-305 [facility] Comment on above: Performed By: #### T ACRO #### [facility] (DEFAULT) [address] [place] [address] 70238 Potassium [Moles/Vol] 4.3 mmol/L Normal 3.5-5.0 [facility] Comment on above: Performed By: #### T ACRO #### [facility] (DEFAULT) [address] [place] [address] 31832 Sodium [Moles/Vol] 132 mmol/L Low 135-145 [facility] Comment on above: Performed By: #### T ACRO #### [facility] (DEFAULT) [address] [place] [address] 82791 Urea nitrogen [Mass/Vol] 16 mg/dL Normal 7-25 [facility] Comment on above: Performed By: #### T ACRO #### [facility] (DEFAULT) [address] [place] [address] 22603 Urea nitrogen/Creatinine [Mass ratio] 10 mg/mg Normal [facility] Comment on above: Performed By: #### T ACRO #### [facility] (DEFAULT) [address] [place] [address] 31876 Anion gap [Moles/Vol] 14 mmol/L 7 - 17 mmol/L [facility] Chloride [Moles/Vol] 102 mmol/L 98 - 10 8 mmol/L [facility] CO2 [Moles/Vol] 20 mmol/L Low 21 - 31 mmol/L [facility] Creatinine [Mass/Vol] 1.56 mg/dL High 0.70 - 1.30 mg/dL [facility] eGFR, CKD-EPI, Male 54 Low - PINF [facility] Glucose [Mass/Vol] 123 mg/dL High 70 - 99 mg/dL [facility] Osmolality Calc [Osmolality] 281 [facility] Potassium [Moles/Vol] 4.3 mmol/L 3.5 - 5.0 mmol/L [facility] Sodium [Moles/Vol] 132 mmol/L Low 135 - 145 mmol/L [facility] Urea nitrogen [Mass/Vol] 16 mg/dL 7 - 25 mg/dL [facility] Urea nitrogen/Creatinine [Mass ratio] 10 mg/mg [facility] EXTRA MICROon 08-30-2023 [facility] HEPATIC FUNCTION PANELon Albumin [Mass/Vol] 3.7 g/dL Normal 3.5-5.0 [facility] Comment on above: Performed By: #### T ACRO #### [facility] (DEFAULT) [address] [place] [address] 59142 ALP [Catalytic activity/Vol] 115 U/L Normal 32-126 [facility] Comment on above: Performed By: #### T ACRO #### [facility] (DEFAULT) [address] [place] [address] ALT [Catalytic activity/Vol] 22 U/L Normal 10-52 [facility] Comment on above: Performed By: #### T ACRO #### [facility] (DEFAULT) [address] [place] [address] AST [Catalytic activity/Vol] 34 U/L Normal 10-39 [facility] [facility] Comment on above: Performed By: #### T ACRO #### [facility] (DEFAULT) [address] [place] [address] 56553 Bilirubin [Mass/Vol] 1.2 mg/dL Normal <1.5 [facility] Comment on above: Performed By: #### T ACRO #### [facility] (DEFAULT) [address] [place] [address] 51938 Bilirubin.indirect [Mass/Vol] 0.3 mg/dL High <0.3 [facility] Comment on above: Performed By: #### T ACRO #### [facility] (DEFAULT) [address] [place] [address] 71385 Protein [Mass/Vol] 7.7 g/dL Normal 6.4-8.3 [facility] Comment on above: Performed By: #### T ACRO #### [facility] (DEFAULT) [address] [place] [address] 98741 Albumin [Mass/Vol] 3.7 g/dL 3.5 - 5.0 g/dL [facility] ALP [Catalytic activity/Vol] 115 U/L 32 - 126 U/L [facility] ALT [Catalytic activity/Vol] 22 U/L 10 - 52 U/L [facility] AST [Catalytic activity/Vol] 34 U/L 10 - 39 U/L [facility] Bilirubin [Mass/Vol] 1.2 mg/[facility] Bilirubin.direct [Mass/Vol] 0.3 mg/dL High NINF - 0.3 mg/dL [facility] Protein [Mass/Vol] 7.7 g/dL 6.4 - 8.3 g/dL [facility] MAGNESIUMon 08-30-2023 Magnesium [Mass/Vol] 1.8 mg/dL Normal 1.6-2.6 [facility] Comment on above: Performed By: #### T ACRO #### [facility] (DEFAULT) [address] [place] [address] 25947 Interpretation and review of laboratory results Normal [facility] Magnesium [Mass/Vol] 1.8 mg/dL 1.6 - 2 .6 mg/dL [facility] No Panel Informationon 08-30 Interpretation and review of laboratory results Abnormal [facility] CBC,PLATELETSon 08-29-2023 Hematocrit (Bld) [Volume fraction] 37.6 % Low 39.6-48.8 [facility] Comment on above: Performed By: #### H EMOGC #### [facility] (DEFAULT) [address] [place] [address] 36778 Hemoglobin (Bld) [Mass/Vol] 12.2 g/dL Low 13.4-16.8 [facility] Comment on above: Performed By: #### H EMOGC #### [facility] (DEFAULT) [address] [place] [address] 44273 MCV (RBC) [Entitic vol] 85.1 fL Normal 79.0-94.5 [facility] Comment on above: Performed By: #### H EMOGC #### [facility] (DEFAULT) [address] [place] [address] 02976 Mean Cell Hgb 27.6 pg Normal 26.1-33.3 [facility] Comment on above: Performed By: #### H EMOGC #### [facility] (DEFAULT) [address] [place] [address] 69004 Mean Cell Hgb Conc 32.4 g/dL Normal 31.9-36.5 [facility] Comment on above: Performed By: #### H EMOGC #### [facility] (DEFAULT) [address] [place] [address] 03870 Platelet mean volume (Bld) [Entitic vol] 9.4 fL Normal 8.7-12.3 [facility] Comment on above: Performed By: #### H EMOGC #### [facility] (DEFAULT) [address] [place] [address] 10481 Platelets (Bld) [#/Vol] 233 10*3/uL Normal 146-337 [facility] Comment on above: Performed By: #### H EMO #### [facility] (DEFAULT) [address] [place] [address] 76912 RBC (Bld) [#/Vol] 4.42 10*6/uL Normal 4.38-5.83 [facility] Comment on above: Performed By: #### H EMO #### [facility] (DEFAULT) [address] [place] [address] 44558 RBC Distribution 13.4 % Normal 10.9-14.3 [facility] Comment on above: Performed By: #### H EMO #### [facility] (DEFAULT) [address] [place] [address] 51625 WBC (Bld) [#/Vol] 4.92 10*3/uL Normal 3.73-10.10 [facility] Comment on above: Performed By: #### H [facility] #### [facility] (DEFAULT) [address] [place] [address] 75830 Erythrocyte distribution width (RBC) [Ratio] 13.4 % 10.9 - 14.3 % [facility] Hematocrit (Bld) [Volume fraction] 37.6 % Low 39.6 - 48.8 % [facility] Hemoglobin (Bld) [Mass/Vol] 12.2 g/dL Low 13.4 - 16.8 g/dL [facility] Interpretation and review of laboratory results Abnormal [facility] MCH (RBC) [Entitic mass] 27.6 pg 26.1 - 33.3 pg [facility] MCHC (RBC) [Mass/Vol] 32.4 g/dL 31.9 - 36.5 g/dL [facility] MCV (RBC) [Entitic vol] 85.1 fL 79.0 - 94.5 fL [facility] Platelet mean volume (Bld) [Entitic vol] 9.4 fL 8.7 - 12.3 fL [facility] Platelets (Bld) [#/Vol] 233 10*3/uL 146 - 337 K/uL [facility] RBC (Bld) [#/Vol] 4.42 10*6/uL [facility] WBC (Bld) [#/Vol] 4.92 10*3/uL 3.73 - 10. 10 K/uL [facility] CHEM 7 (LYTES,BUN,CREA,GLUC) on 08-29-2023 Anion gap [Moles/Vol] 13 mmol/L Normal 7-17 [facility] Comment on above: Performed By: #### Vale UNDERWOOD #### [facility] (DEFAULT) [address] [place] [address] 74449 Chloride [Moles/Vol] 105 mmol/L Normal 98-108 [facility] Comment on above: Performed By: #### Vale UNDERWOOD #### [facility] (DEFAULT) [address] [place] [address] 48528 CO2 [Moles/Vol] 20 mmol/L Low 21-31 [facility] Comment on above: Performed By: #### Vale UNDERWOOD #### [facility] (DEFAULT) [address] [place] [address] 01250 Creatinine [Mass/Vol] 1.55 mg/dL High 0.70-1.30 [facility] Comment on above: Performed By: #### G YASMINE #### [facility] (DEFAULT) [address] [place] [address] 75889 GFR/1.73 sq M.predicted among non-blacks MDRD (S/P/Bld) [Vol rate/Area] 54 mL/min/{1.73_m2} Low >=60 [facility] Comment on above: Result Comment: Repo rted eGFR is based on the CKD-EPI 2020 equation using creatinine, age, and sex. Performed By: #### G YASMINE #### [facility] (DEFAULT) [address] [place] [address] 43326 Glucose [Mass/Vol] 108 mg/dL High 70-99 [facility] Comment on above: Performed By: #### Vale UNDERWOOD #### [facility] (DEFAULT) [address] [place] [address] 91636 Osmolality [Osmolality] 283 mosm/kg Normal 278-305 [facility] Comment on above: Performed By: #### Vale UNDERWOOD #### [facility] (DEFAULT) [address] [place] [address] 32723 Potassium [Moles/Vol] 4.5 mmol/L Normal 3.5-5.0 [facility] Comment on above: Performed By: #### Vale UNDERWOOD #### [facility] (DEFAULT) [address] [place] [address] 73352 Sodium [Moles/Vol] 133 mmol/L Low 135-145 [facility] Comment on above: Performed By: #### Vale UNDERWOOD #### [facility] (DEFAULT) [address] [place] [address] 49186 Urea nitrogen [Mass/Vol] 19 mg/dL Normal 7-25 [facility] Comment on above: Performed By: #### Vale UNDERWOOD #### [facility] (DEFAULT) [address] [place] [address] 29036 Urea nitrogen/Creatinine [Mass ratio] 12 mg/mg Normal [facility] Comment on above: Performed By: #### Vale UNDERWOOD #### [facility] (DEFAULT) [address] [place] [address] 71376 Anion gap [Moles/Vol] 13 mmol/L 7 - 17 mmol/L [facility] Chloride [Moles/Vol] 105 mmol/L 98 - 10 8 mmol/L [facility] CO2 [Moles/Vol] 20 mmol/L Low 21 - 31 mmol/L [facility] Creatinine [Mass/Vol] 1.55 mg/dL High 0.70 - 1.30 mg/dL [facility] eGFR, CKD-EPI, Male 54 Low - [facility] Glucose [Mass/Vol] 108 mg/dL High 70 - 99 mg/dL [facility] Osmolality Calc [Osmolality] 283 [facility] Potassium [Moles/Vol] 4.5 mmol/L 3.5 - 5.0 mmol/L [facility] Sodium [Moles/Vol] 133 mmol/L Low 135 - 145 mmol/L [facility] Urea nitrogen [Mass/Vol] 19 mg/dL 7 - 25 mg/dL [facility] Urea nitrogen/Creatinine [Mass ratio] 12 mg/mg [facility] GGTon 08-29-2023 Gamma glutamyl transferase [Catalytic activity/Vol] 64 U/L 8 - 64 U/L [facility] Interpretation and review of laboratory results Normal [facility] Gamma glutamyl transferase [Catalytic activity/Vol] 64 U/L Normal 8-64 [facility] Comment on above: Performed By: #### Vale UNDERWOOD #### [facility] (DEFAULT) [address] [place] [address] 95656 HEPATIC FUNCTION PANELon Albumin [Mass/Vol] 3.3 g/dL Low 3.5-5.0 [facility] Comment on above: Performed By: #### Vale UNDERWOOD #### [facility] (DEFAULT) [address] [place] [address] 99218 ALP [Catalytic activity/Vol] 103 U/L Normal 32-126 [facility] Comment on above: Performed By: #### Vale UNDERWOOD #### [facility] (DEFAULT) [address] [place] [address] 63687 ALT [Catalytic activity/Vol] 18 U/L Normal 10-52 [facility] Comment on above: Performed By: #### Vale UNDERWOOD #### [facility] (DEFAULT) [address] [place] [address] 44571 AST [Catalytic activity/Vol] 27 U/L Normal 10-39 [facility] Comment on above: Performed By: #### Vale UNDERWOOD #### [facility] (DEFAULT) [address] [place] [address] 44916 Bilirubin [Mass/Vol] 1.1 mg/dL Normal <1.5 [facility] Comment on above: Performed By: #### G YASMINE #### [facility] (DEFAULT) [address] [place] [address] 72968 Bilirubin.indirect [Mass/Vol] 0.3 mg/dL High <0.3 [facility] Comment on above: Performed By: #### G YASMINE #### [facility] (DEFAULT) [address] [place] [address] 75943 Protein [Mass/Vol] 6.8 g/dL Normal 6.4-8.3 [facility] Comment on above: Performed By: #### Vale UNDERWOOD #### [facility] (DEFAULT) [address] [place] [address] 41255 Albumin [Mass/Vol] 3.3 g/dL Low 3.5 - 5.0 g/dL [facility] ALP [Catalytic activity/Vol] 103 U/L 32 - 126 U/L [facility] ALT [Catalytic activity/Vol] 18 U/L 10 - 52 U/L [facility] AST [Catalytic activity/Vol] 27 U/L 10 - 39 U/L [facility] Bilirubin [Mass/Vol] 1.1 mg/dL [facility]dL [facility] Bilirubin.direct [Mass/Vol] 0.3 mg/dL High NINF - 0.3 mg/dL [facility] Protein [Mass/Vol] 6.8 g/dL 6.4 - 8.3 g/dL [facility] HISTOPLASMA AND BLASTOMYCES ANTIGEN, ENZYME IMMUNOASSAY, SERMon 08-29-2023 Histoplasma/Blastomyc es Ag Result Detected Invalid Interpretation Code Not Detected [facility] Comment on above: Result Comment: Anti gen from Histoplasma or Blastomyces (unable to differentiate) detected. Result should be correlated with clinical presentation, exposure history, and other diagnostic procedures, including culture, serology, histopathology, and/or radiographic findings, to aid in the differentiation between histoplasmosis and blastomycosis. CRITICAL RESULT Performed By: #### Y PNRP #### [facility] (DEFAULT) [address] [address] Histoplasma/Blastomyc es Ag Value 5.3 ng/mL Normal [facility] Comment on above: Result Comment: ADDITIONAL INFORMATION This test was developed and its performance characteristics determined by [facility] in a manner consistent with CLIA requirements. This test has not been cleared or approved by the U.S. Food and Drug Administration. Test Performed by: [facility] [place] [address] Computer Builder: Rosendo Bose M.D. Ph.D.; CLIA# [id number] Performed By: #### Y PNRP #### [facility] (DEFAULT) [address] [place] [address] 46699 HISTOPLASMA ANTIGEN,URINEon 08-29-2023 HISTOPLASM AG, URINE Not detected Normal Not Detected [facility] Comment on above: Result Comment: No H istoplasma antigen detected. False negative results may occur. Repeat testing on a new specimen should be considered if clinically indicated. Performed By: #### T ACRO #### [facility] [address] [place] [address] 76315 Histoplasma Ag Value Not detected Normal [facility] Comment on above: Result Comment: ADDITIONAL INFORMATION This test has been modified from the waterproofing supervisor's instructions. Its performance characteristics were determined by [facility] in a manner consistent with CLIA requirements. This test has not been cleared or approved by the U.S. Food and Drug Administration. Test Performed by: [facility] [place] [address] Computer Builder: Rosendo Bose M.D. Ph.D.; CLIA# [id number] Performed By: #### T ACRO #### [facility] (DEFAULT) [address] [place] [address] 41895 MAGNESIUMon 08-29-2023 Magnesium [Mass/Vol] 1.7 mg/dL Normal 1.6-2.6 [facility] Comment on above: Performed By: #### G YASMINE #### [facility] (DEFAULT) [address] [place] [address] 54292 Interpretation and review of laboratory results Normal [facility] Magnesium [Mass/Vol] 1.7 mg/dL 1.6 - 2 .6 mg/dL [facility] No Panel Informationon 08-29 Interpretation and review of laboratory results Abnormal [facility] PT,INR,PTTon 08-29-2023 aPTT Coag (Bld) [Time] 29.3 s Normal 24.0-34.3 [facility] Comment on above: Performed By: #### L EGN #### [facility] (DEFAULT) [address] [place] [address] 48182 INR Coag (PPP) [Relative time] 1.1 {INR} Normal 0.9-1.1 [facility] Comment on above: Performed By: #### L EGN #### [facility] (DEFAULT) [address] [place] [address] 15843 PT Coag (PPP) [Time] 13.8 s Normal 11.9-14.2 [facility] Comment on above: Performed By: #### L EGN #### [facility] (DEFAULT) [address] [place] [address] 08895 aPTT Coag (PPP) [Time] 29.3 s [facility] INR Coag (Bld) [Relative time] 1.1 {INR} 0.9 - 1.1 [facility] Interpretation and review of laboratory results Normal [facility] PT Coag (PPP) [Time] 13.8 s [facility] Portable XR Chest Viewson RADIOLOGY RADIOLOGY [facility] Portable XR Chest ViewsOrder ed By: Gerald Baer on 08-29-2023 [facility] Work Phone: TACROLIMUS LEVEL, TROUGH (NE E DRUG LEVEL)on 08-29-2023 Interpretation and review of laboratory results Normal [facility] Tacrolimus (Bld) [Mass/Vol] 8.9 ng/mL [facility] Tacrolimus, Trough 8.9 ng/mL Normal [facility] Transplant: 4.0-12.0, Therapeutic: 5.0-15.0 [facility] Comment on above: Order Comment: Pleas e draw at specified interval PRIOR to dose. Do not hold dose to wait for level. Specimens batched twice per day, (M-F) and once per day weekendsMethod performed is a chemiluminescent microparticle immunoasssay on the [employer] i2000.The range is based on experience at [facility] and users should be aware that target concentrations vary widely depending on concomitant therapy, time post-transplant, and desired degree of immunosuppression. Performed By: #### H EMO #### [facility] (DEFAULT) [address] [address] Tacrolimus, Trough 8.7 ng/mL Normal [facility] Transplant: 4.0-12.0, Therapeutic: 5.0-15.0 [facility] Comment on above: Order Comment: Pleas e draw at specified interval PRIOR to dose. Do not hold dose to wait for level. Specimens batched twice per day, (M-F) and once per day weekends Method performed is a chemiluminescent microparticle immunoasssay on the [employer] i2000. The range is based on experience at [facility] and users should be aware that target concentrations vary widely depending on concomitant therapy, time post-transplant, and desired degree of immunosuppression. Performed By: #### T ACRO #### [facility] (DEFAULT) [address] [address] TACROLIMUS LEVEL, TROUGH (NE E DRUG LEVEL)Ordered By: Roxanne Louie on 08-29-2023 Interpretation and review of laboratory results Normal [facility] Tacrolimus (Bld) [Mass/Vol] 8.7 ng/mL [facility] URINALYSIS REFLEX TO CULTURE PERFORMABLEon 08-29-2023 Appearance (U) Clear Normal Clear [facility] Comment on above: Order Comment: Pleas e draw at specified interval PRIOR to dose. Do not hold dose to wait for level. Specimens batched twice per day, (M-F) and once per day weekends Method performed is a chemiluminescent microparticle immunoasssay on the [employer] i2000. The range is based on experience at [facility] and users should be aware that target concentrations vary widely depending on concomitant therapy, time post-transplant, and desired degree of immunosuppression. Performed By: #### T ACRO #### [facility] (DEFAULT) [address] [address] Bacteria ABSENT Normal ABSENT [facility] Comment on above: Order Comment: Pleas e draw at specified interval PRIOR to dose. Do not hold dose to wait for level. Specimens batched twice per day, (M-F) and once per day weekends Method performed is a chemiluminescent microparticle immunoasssay on the [employer] i2000. The range is based on experience at [facility] and users should be aware that target concentrations vary widely depending on concomitant therapy, time post-transplant, and desired degree of immunosuppression. Performed By: #### T ACRO #### [facility] (DEFAULT) [address] [address] Blood Urine Trace Abnormal Negative [facility] Comment on above: Order Comment: Pleas e draw at specified interval PRIOR to dose. Do not hold dose to wait for level. Specimens batched twice per day, (M-F) and once per day weekends Method performed is a chemiluminescent microparticle immunoasssay on the [employer] i2000. The range is based on experience at [facility] and users should be aware that target concentrations vary widely depending on concomitant therapy, time post-transplant, and desired degree of immunosuppression. Performed By: #### T ACRO #### [facility] (DEFAULT) [address] [address] Calcium Oxalate Crystals PRESENT Normal [facility] Comment on above: Order Comment: Pleas e draw at specified interval PRIOR to dose. Do not hold dose to wait for level. Specimens batched twice per day, (M-F) and once per day weekends Method performed is a chemiluminescent microparticle immunoasssay on the [employer] i2000. The range is based on experience at [facility] and users should be aware that target concentrations vary widely depending on concomitant therapy, time post-transplant, and desired degree of immunosuppression. Performed By: #### T ACRO #### [facility] [address] [address] Color (U) Yellow Normal Yellow [facility] Comment on above: Order Comment: Pleas e draw at specified interval PRIOR to dose. Do not hold dose to wait for level. Specimens batched twice per day, (M-F) and once per day weekends Method performed is a chemiluminescent microparticle immunoasssay on the [employer] i2000. The range is based on experience at [facility] and users should be aware that target concentrations vary widely depending on concomitant therapy, time post-transplant, and desired degree of immunosuppression. Performed By: #### T ACRO #### [facility] (DEFAULT) [address] [address] Glucose Ql (U) Negative Normal Negative [facility] Comment on above: Order Comment: Pleas e draw at specified interval PRIOR to dose. Do not hold dose to wait for level. Specimens batched twice per day, (M-F) and once per day weekends Method performed is a chemiluminescent microparticle immunoasssay on the [employer] i2000. The range is based on experience at [facility] and users should be aware that target concentrations vary widely depending on concomitant therapy, time post-transplant, and desired degree of immunosuppression. Performed By: #### T ACRO #### [facility] (DEFAULT) [address] [place] [address] Ketones Ql (U) Negative Normal Negative [facility] Comment on above: Order Comment: Pleas e draw at specified interval PRIOR to dose. Do not hold dose to wait for level. Specimens batched twice per day, (M-F) and once per day weekends Method performed is a chemiluminescent microparticle immunoasssay on the [employer] i2000. The range is based on experience at [facility] and users should be aware that target concentrations vary widely depending on concomitant therapy, time post-transplant, and desired degree of immunosuppression. Performed By: #### T ACRO #### [facility] [address] [place] [address] 62413 Leukocyte esterase Test strip Ql (U) Negative Normal Negative [facility] Comment on above: Order Comment: Pleas e draw at specified interval PRIOR to dose. Do not hold dose to wait for level. Specimens batched twice per day, (M-F) and once per day weekends Method performed is a chemiluminescent microparticle immunoasssay on the [employer] i2000. The range is based on experience at [facility] and users should be aware that target concentrations vary widely depending on concomitant therapy, time post-transplant, and desired degree of immunosuppression. Performed By: #### T ACRO #### [facility] [address] [place] [address] 78640 Nitrites Urine Negative Normal Negative [facility] Comment on above: Order Comment: Pleas e draw at specified interval PRIOR to dose. Do not hold dose to wait for level. Specimens batched twice per day, (M-F) and once per day weekends Method performed is a chemiluminescent microparticle immunoasssay on the [employer] i2000. The range is based on experience at [facility] and users should be aware that target concentrations vary widely depending on concomitant therapy, time post-transplant, and desired degree of immunosuppression. Performed By: #### T ACRO #### [facility] [address] [place] [address] 96509 pH (U) 6.0 [pH] Normal 5.0-7.0 [facility] Comment on above: Order Comment: Pleas e draw at specified interval PRIOR to dose. Do not hold dose to wait for level. Specimens batched twice per day, (M-F) and once per day weekends Method performed is a chemiluminescent microparticle immunoasssay on the [employer] i2000. The range is based on experience at [facility] and users should be aware that target concentrations vary widely depending on concomitant therapy, time post-transplant, and desired degree of immunosuppression. Performed By: #### T ACRO #### [facility] (DEFAULT) [address] [place] [address] 60441 Protein Urine Negative Normal Negative [facility] Comment on above: Order Comment: Pleas e draw at specified interval PRIOR to dose. Do not hold dose to wait for level. Specimens batched twice per day, (M-F) and once per day weekends Method performed is a chemiluminescent microparticle immunoasssay on the [employer] i2000. The range is based on experience at [facility] and users should be aware that target concentrations vary widely depending on concomitant therapy, time post-transplant, and desired degree of immunosuppression. Performed By: #### T ACRO #### [facility] (DEFAULT) [address] [place] [id number] RBC Urine 3-5 Abnormal 0-2 [facility] Comment on above: Order Comment: Pleas e draw at specified interval PRIOR to dose. Do not hold dose to wait for level. Specimens batched twice per day, (M-F) and once per day weekends Method performed is a chemiluminescent microparticle immunoasssay on the [employer] Leader i2000. The range is based on experience at [facility] and users should be aware that target concentrations vary widely depending on concomitant therapy, time post-transplant, and desired degree of immunosuppression. Performed By: #### T ACRO #### [facility] (DEFAULT) [address] [place] [address] Specific Jennings Urine 1.015 Normal 1.001-1.035 [facility] Comment on above: Order Comment: Pleas e draw at specified interval PRIOR to dose. Do not hold dose to wait for level. Specimens batched twice per day, (M-F) and once per day weekends Method performed is a chemiluminescent microparticle immunoasssay on the [employer] i2000. The range is based on experience at [facility] and users should be aware that target concentrations vary widely depending on concomitant therapy, time post-transplant, and desired degree of immunosuppression. Performed By: #### T ACRO #### [facility] (DEFAULT) [address] [place] [address] Squamous/Epithelial Cells 0-2/hpf Normal 0-2/hpf, 3-5/hpf = 1+ [facility] Comment on above: Order Comment: Pleas e draw at specified interval PRIOR to dose. Do not hold dose to wait for level. Specimens batched twice per day, (M-F) and once per day weekends Method performed is a chemiluminescent microparticle immunoasssay on the [employer] i2000. The range is based on experience at [facility] and users should be aware that target concentrations vary widely depending on concomitant therapy, time post-transplant, and desired degree of immunosuppression. Performed By: #### T ACRO #### [facility] ([facility] [address] [address] Urobilinogen Urine 1.0 E.U./dL Normal 0.2 E.U/d L, 1.0 E.U/dL [facility] Comment on above: Order Comment: Pleas e draw at specified interval PRIOR to dose. Do not hold dose to wait for level. Specimens batched twice per day, (M-F) and once per day weekends Method performed is a chemiluminescent microparticle immunoasssay on the [employer] i2000. The range is based on experience at [facility] and users should be aware that target concentrations vary widely depending on concomitant therapy, time post-transplant, and desired degree of immunosuppression. Performed By: #### T ACRO #### [facility] (DEFAULT) [address] [place] [address] WBC Urine 0 - 5 Normal 0 - 5 [facility] Comment on above: Order Comment: Pleas e draw at specified interval PRIOR to dose. Do not hold dose to wait for level. Specimens batched twice per day, (M-F) and once per day weekends Method performed is a chemiluminescent microparticle immunoasssay on the [employer] i2000. The range is based on experience at [facility] and users should be aware that target concentrations vary widely depending on concomitant therapy, time post-transplant, and desired degree of immunosuppression. Performed By: #### T ACRO #### [facility] (DEFAULT) [address] [address] URINALYSIS REFLEX TO CULTURE PERFORMABLEOrdered By: Shaji Kelly on 08-29-2023 Appearance (U) Clear Clear [facility] Bacteria LM Ql (Urine sed) ABSENT ABSENT [facility] Calcium Oxalate Crystals PRESENT [facility] Color (U) Yellow Yellow [facility] Epithelial cells.squamous LM Ql (Urine sed) 0-2/hpf 0-2/hpf, 3-5/hpf = 1+ [facility] Glucose Test strip (U) [Mass/Vol] Negative Negative [facility] Interpretation and review of laboratory results Abnormal [facility] Ketones (U) [Mass/Vol] Negative Negative [facility] Leukocyte esterase Test strip Ql (U) Negative Negative [facility] Nitrite Ql (U) Negative Negative [facility] pH (U) 6.0 [pH] 5.0 - 7.0 [facility] Protein (U) [Mass/Vol] Negative Negative [facility] RBC (U) [#/Vol] Trace Abnormal Negative [facility] RBC LM.HPF (Urine sed) [#/Area] 3-5 Abnormal [facility] Specific gravity (U) [Rel density] 1.015 1.001 - 1.035 [facility] Urobilinogen (U) [Mass/Vol] 1.0 E.U./dL 0.2 E.U/dL, 1.0 E.U/dL [facility] WBC LM.HPF (Urine sed) [#/Area] 0 - 5 [facility] URINE CULTUREon 08-29-2023 Bacteria identified Cx Nom (U) No Growth Normal [facility] Comment on above: Order Comment: For i ndwelling catheters, specimen collection is acceptable on catheter day 1 and 2 only. Sung top vacutainer. Urine must be to the fill line to process (4mls). If minimum volume, send urine in a yellow top vacutainer tube. Performed By: #### [facility] #### [facility] (DEFAULT) [address] [place] [address] [place] RENAL TRANSPLANT SCANon 0 08-29-2023 US [...] have reviewed and approved this report. Normal [facility] US for transplanted kidney l imitedon 08-29-2023 RADIOLOGY RADIOLOGY [facility] Radiology Study observation (narrative) [facility] US for transplanted kidney l imitedOrdered By: Romana Myers on 08-29-2023 [facility] Work Phone: XR CHEST PORTABLEon 08-29-20 XR CHEST PORTABLE EXAM: XR CHEST PORTABLE, 08/28/2023 21:46 PM CLINICAL INDICATIONS: Fevers, cough RELEVANT CLINICAL HISTORY: COMPARISON: May 17, 2022 FINDINGS: Clear lungs. Prominent heart, unchanged. No pulmonary edema. Normal bones. IMPRESSION: Prominent heart without pulmonary edema. Clear lungs. Normal [facility] BLOOD CULTUREon 08-28-2023 Bacteria identified Cx Nom (Unsp spec) NO GROWTH DAY 5 OF 5 Normal [facility] Comment on above: Order Comment: 2 Bot tles (1 Set - consists of 1 Aerobic bottle and 1 Anaerobic bottle) -1st Peripheral DrawFor syringe method draw:If able to obtain adequate sample (20 ml) inoculate anaerobic bottle firstIf inadequate sample obtained (less than 20 ml) inoculate aerobic bottle firstFor vacutainer method draw: Fill aerobic bottle first, then anaerobic Performed By: #### [facility] #### [facility] (DEFAULT) [address] [place] [address] Bacteria identified Cx Nom (Unsp spec) NO GROWTH DAY 5 OF 5 Normal [facility] Comment on above: Order Comment: 2 Bot tles (1 Set - consists of 1 Aerobic bottle and 1 Anaerobic bottle) -1st Peripheral DrawFor syringe method draw:If able to obtain adequate sample (20 ml) inoculate anaerobic bottle firstIf inadequate sample obtained (less than 20 ml) inoculate aerobic bottle firstFor vacutainer method draw: Fill aerobic bottle first, then anaerobic Performed By: #### [facility] #### [facility] (DEFAULT) [address] [place] [address] DARYL AURIS SCREEN BY PCRo n 08-28-2023 Daryl auris Screen by PCR Not detected Normal Not Detected [facility] Comment on above: Order Comment: This test was performed using a real-time PCR assay. This test was developed, and its performance characteristics determined by [facility] at [facility]. It has not been cleared or approved by the FDA. The laboratory is regulated under CLIA as qualified to perform high-complexity testing. This test is used for clinical purposes. It should not be regarded as investigational or for research. Performed By: #### [facility] #### [facility] (DEFAULT) [address] [address] CBC AND ELECTRONIC DIFFon Abs Baso Auto < Normal 0.00-0.09 [facility] Comment on above: Performed By: #### Vale UNDERWOOD #### [facility] (DEFAULT) [address] [address] Basophils/100 WBC (Bld) 0.6 % Normal [facility] Comment on above: Performed By: #### Vale UNDERWOOD #### [facility] (DEFAULT) [address] [address] DIFF STATUS Electronic Differential Normal [facility] Comment on above: Performed By: #### Vale UNDERWOOD #### [facility] (DEFAULT) [address] [address] Eosinophils (Bld) [#/Vol] 0.10 10*3/uL Normal 0.00-0.48 [facility] Comment on above: Performed By: ###Walter UNDERWOOD #### [facility] (DEFAULT) [address] [address] Eosinophils/100 WBC (Bld) 2.1 % Normal [facility] Comment on above: Performed By: ###Walter UNDERWOOD #### [facility] (DEFAULT) [address] [address] Hematocrit (Bld) [Volume fraction] 37.9 % Low 39.6-48.8 [facility] Comment on above: Performed By: #### Vale UNDERWOOD #### [facility] (DEFAULT) [address] [address] Hemoglobin (Bld) [Mass/Vol] 12.4 g/dL Low 13.4-16.8 [facility] Comment on above: Performed By: #### Vale UNDERWOOD #### [facility] (DEFAULT) [address] [address] Immature Grans % 0.6 % Normal [facility] Comment on above: Performed By: #### Vale UNDERWOOD #### [facility] (DEFAULT) [address] [place] [address] Immature Grans Absolute < Normal <=0.07 [facility] Comment on above: Performed By: #### Vale UNDERWOOD #### [facility] (DEFAULT) [address] [place] [address] Lymphocytes (Bld) [#/Vol] 1.76 10*3/uL Normal 0.83-3.57 [facility] Comment on above: Performed By: #### G YASMINE #### [facility] (DEFAULT) [address] [address] Lymphocytes/100 WBC (Bld) 37.1 % Normal [facility] Comment on above: Performed By: #### Vale UNDERWOOD #### [facility] (DEFAULT) [address] [address] MCV (RBC) [Entitic vol] 85.0 fL Normal 79.0-94.5 [facility] Comment on above: Performed By: #### Vale UNDERWOOD #### [facility] (DEFAULT) [address] [address] Mean Cell Hgb 27.8 pg Normal 26.1-33.3 [facility] Comment on above: Performed By: #### Vale UNDERWOOD #### [facility] (DEFAULT) [address] [address] Mean Cell Hgb Conc 32.7 g/dL Normal 31.9-36.5 [facility] Comment on above: Performed By: #### Vale UNDERWOOD #### [facility] (DEFAULT) [address] [place] [address] Monocytes (Bld) [#/Vol] 0.66 10*3/uL Normal 0.24-0.93 [facility] Comment on above: Performed By: #### Vale UNDERWOOD #### [facility] (DEFAULT) [address] [place] [address] Monocytes/100 WBC (Bld) 13.9 % Normal [facility] Comment on above: Performed By: #### Vale UNDERWOOD #### [facility] (DEFAULT) [address] [address] Nucleated RBC 0.0 /100 WBC Normal <=0.2 [facility] Comment on above: Performed By: #### Vale UNDERWOOD #### [facility] (DEFAULT) [address] [address] Platelet mean volume (Bld) [Entitic vol] 9.3 fL Normal 8.7-12.3 [facility] Comment on above: Performed By: #### Vale UNDERWOOD #### [facility] (DEFAULT) [address] [address] Platelets (Bld) [#/Vol] 262 10*3/uL Normal 146-337 [facility] Comment on above: Performed By: #### Vale UNDERWOOD #### [facility] (DEFAULT) [address] [address] RBC (Bld) [#/Vol] 4.46 10*6/uL Normal 4.38-5.83 [facility] Comment on above: Performed By: ###Walter UNDERWOOD #### [facility] (DEFAULT) [address] [address] RBC Distribution 13.4 % Normal 10.9-14.3 [facility] Comment on above: Performed By: #### Vale UNDERWOOD #### [facility] (DEFAULT) [address] [address] Segs + Bands Auto 45.7 % Normal [facility] Comment on above: Performed By: #### Vale UNDERWOOD #### [facility] (DEFAULT) [address] [address] Segs + Bands,Absolute Auto 2.16 K/uL Normal 1.57-6.19 [facility] Comment on above: Performed By: #### Vale UNDERWOOD #### [facility] (DEFAULT) [address] [place] [address] WBC (Bld) [#/Vol] 4.74 10*3/uL Normal 3.73-10.10 [facility] Comment on above: Performed By: #### G YASMINE #### [facility] (DEFAULT) [address] [place] [address] Basophils (Bld) [#/Vol] K/uL 0.00 - 0.09 K/uL [facility] Basophils/100 WBC (Bld) 0.6 % [facility] Differential cell count method Nom (Bld) Electronic Differential [facility] Eosinophils (Bld) [#/Vol] 0.10 10*3/uL 0.00 - 0.48 K/uL [facility] Eosinophils/100 WBC (Bld) 2.1 % [facility] Erythrocyte distribution width (RBC) [Ratio] 13.4 % 10.9 - 14.3 % [facility] Hematocrit (Bld) [Volume fraction] 37.9 % Low 39.6 - 48.8 % [facility] Hemoglobin (Bld) [Mass/Vol] 12.4 g/dL Low 13.4 - 16.8 g/dL [facility] Immature granulocytes (Bld) [#/Vol] K/uL NINF - 0.07 K/uL [facility] Immature granulocytes/100 WBC (Bld) 0.6 % [facility] Interpretation and review of laboratory results Abnormal [facility] Lymphocytes (Bld) [#/Vol] 1.76 10*3/uL 0.83 - 3.57 K/uL [facility] Lymphocytes/100 WBC (Bld) 37.1 % [facility] MCH (RBC) [Entitic mass] 27.8 pg 26.1 - 33.3 pg [facility] MCHC (RBC) [Mass/Vol] 32.7 g/dL 31.9 - 36.5 g/dL [facility] MCV (RBC) [Entitic vol] 85.0 fL 79.0 - 94.5 fL [facility] Monocytes (Bld) [#/Vol] 0.66 10*3/uL 0.24 - 0.93 K/uL [facility] Monocytes/100 WBC (Bld) 13.9 % [facility] Neutrophils (Bld) [#/Vol] 2.16 10*3/uL 1.57 - 6.19 K/uL [facility] Nucleated RBC/100 WBC (Bld) [Ratio] 0.0 % NINF [facility] Platelet mean volume (Bld) [Entitic vol] 9.3 fL 8.7 - 12.3 fL [facility] Platelets (Bld) [#/Vol] 262 10*3/uL 146 - 337 K/uL [facility] RBC (Bld) [#/Vol] 4.46 10*6/uL [facility] Segmented neutrophils/100 WBC (Bld) 45.7 % [facility] WBC (Bld) [#/Vol] 4.74 10*3/uL 3.73 - 10. 10 K/uL [facility] CHEM 6 (LYTES, BUN CREA)on 0 08-28-2023 Anion gap [Moles/Vol] 13 mmol/L Normal 7-17 [facility] Comment on above: Performed By: #### C HM6 #### [facility] (DEFAULT) [address] [place] [address] Chloride [Moles/Vol] 103 mmol/L Normal 98-108 [facility] Comment on above: Performed By: #### C HM6 #### [facility] (DEFAULT) [address] [place] [address] CO2 [Moles/Vol] 22 mmol/L Normal 21-31 [facility] Comment on above: Performed By: #### C HM6 #### [facility] (DEFAULT) [address] [place] [address] Creatinine [Mass/Vol] 1.62 mg/dL High 0.70-1.30 [facility] Comment on above: Performed By: #### C HM6 #### [facility] (DEFAULT) [address] [place] [address] GFR/1.73 sq M.predicted among non-blacks MDRD (S/P/Bld) [Vol rate/Area] 51 mL/min/{1.73_m2} Low >=60 [facility] Comment on above: Result Comment: Repo rted eGFR is based on the CKD-EPI 2020 equation using creatinine, age, and sex. Performed By: #### C HM6 #### [facility] (DEFAULT) [address] [place] [address] Potassium [Moles/Vol] 4.3 mmol/L Normal 3.5-5.0 [facility] Comment on above: Performed By: #### C HM6 #### [facility] (DEFAULT) [address] [place] [address] Sodium [Moles/Vol] 134 mmol/L Low 135-145 [facility] Comment on above: Performed By: #### C HM6 #### [facility] (DEFAULT) [address] [place] [address] Urea nitrogen [Mass/Vol] 22 mg/dL Normal 7-25 [facility] Comment on above: Performed By: #### C HM6 #### [facility] (DEFAULT) [address] [place] [address] Urea nitrogen/Creatinine [Mass ratio] 14 mg/mg Normal [facility] Comment on above: Performed By: #### C HM6 #### [facility] (DEFAULT) [address] [place] [address] Anion gap [Moles/Vol] 13 mmol/L 7 - 17 mmol/L [facility] Chloride [Moles/Vol] 103 mmol/L 98 - 10 8 mmol/L [facility] CO2 [Moles/Vol] 22 mmol/L 21 - 31 mmol/L [facility] Creatinine [Mass/Vol] 1.62 mg/dL High 0.70 - 1.30 mg/dL [facility] eGFR, CKD-EPI, Male 51 Low - PINF [facility] Interpretation and review of laboratory results Abnormal [facility] Potassium [Moles/Vol] 4.3 mmol/L 3.5 - 5.0 mmol/L [facility] Sodium [Moles/Vol] 134 mmol/L Low 135 - 145 mmol/L [facility] Urea nitrogen [Mass/Vol] 22 mg/dL 7 - 25 mg/dL [facility] Urea nitrogen/Creatinine [Mass ratio] 14 mg[facility] IMMUNOCOMPROMISED RESPIRATOR Y PANELon 08-28-2023 Adenovirus - Pcr Not detected Normal Not Detected [facility] Comment on above: Order Comment: [...] nucleic acid assay. Performed By: #### [facility] #### [facility] (DEFAULT) [address] [address] Bordetella Parapertussis Not detected Normal Not Detected [facility] Comment on above: Order Comment: [...] nucleic acid assay. Performed By: #### [facility] #### [facility] (DEFAULT) [address] [address] Bordetella Pertussis Not detected Normal Not Detected [facility] Comment on above: Order Comment: [...] nucleic acid assay. Performed By: #### [facility] #### [facility] (DEFAULT) [address] [address] Chlamydia Pneumoniae Not detected Normal Not Detected [facility] Comment on above: Order Comment: [...] assay. Performed By: #### H EMO #### [facility] (DEFAULT) [address] [address] Coronavirus 229E Not detected Normal Not Detected [facility] Comment on above: Order Comment: [...] assay. Performed By: #### H EMO #### [facility] (DEFAULT) [address] [address] Coronavirus Hku1 Not detected Normal Not Detected [facility] Comment on above: Order Comment: [...] nucleic acid assay. Performed By: #### [facility] #### [facility] (DEFAULT) [address] [address] Coronavirus Nl63 Not detected Normal Not Detected [facility] Comment on above: Order Comment: [...] Performed By: #### H EMO #### [facility] (DEFAULT) [address] [address] Coronavirus Oc43 Not detected Normal Not Detected [facility] Comment on above: Order Comment: [...] assay. Performed By: #### H EMO #### [facility] (DEFAULT) [address] [address] Influenza A - Pcr Not detected Normal Not Detected [facility] Comment on above: Order Comment: [...] nucleic acid assay. Performed By: #### [facility] #### [facility] (DEFAULT) [address] [place] [address] Influenza B - Pcr Not detected Normal Not Detected [facility] Comment on above: Order Comment: [...] nucleic acid assay. Performed By: #### [facility] #### [facility] (DEFAULT) [address] [place] [address] Metapneumovirus - Pcr Not detected Normal Not Detected [facility] Comment on above: Order Comment: [...] assay. Performed By: #### H EMO #### [facility] [address] [address] Mycoplasma Pneumoniae Not detected Normal Not Detected [facility] Comment on above: Order Comment: [...] assay. Performed By: #### H EMO #### [facility] ([facility] [address] [address] Parainfluenza 1 - Pcr Not detected Normal Not Detected [facility] Comment on above: Order Comment: [...] Performed By: #### H EMO #### [facility] (DEFAULT) [address] [address] Parainfluenza 2 - Pcr Not detected Normal Not Detected [facility] Comment on above: Order Comment: [...] assay. Performed By: #### H EMO #### [facility] [address] [address] Parainfluenza 3 - Pcr Not detected Normal Not Detected [facility] Comment on above: Order Comment: [...] nucleic acid assay. Performed By: #### [facility] #### [facility] (DEFAULT) [address] [address] Parainfluenza 4 - Pcr Not detected Normal Not Detected [facility] Comment on above: Order Comment: [...] assay. Performed By: #### H EMO #### [facility] (DEFAULT) [address] [address] Rhinovirus/Enteroviru s - PCR Not detected Normal Not Detected [facility] Comment on above: Order Comment: [...] assay. Performed By: #### H EMO #### [facility] (DEFAULT) [address] [address] Rsv - Pcr Not detected Normal Not Detected [facility] Comment on above: Order Comment: [...] nucleic acid assay. Performed By: #### [facility] #### [facility] (DEFAULT) [address] [place] [address] SARS-CoV-2 (COVID-19) RNA ESTELITA+probe Ql (Unsp spec) Not detected Normal NOT DETECTED [facility] Comment on above: Order Comment: [...] nucleic acid assay. Performed By: #### [facility] #### [facility] (DEFAULT) [address] [place] [address] Portable XR Chest Viewson Radiology Study observation (narrative) [facility] Respiratory virus DNA+RNA NA A+probe Nom (Unsp spec)Ordered By: Dayami Harris on 08-28-2023 Adenovirus DNA ESTELITA+probe Nom (Unsp spec) Not detected Not Detected [facility] B. parapertussis DNA ESTELITA+probe Ql (Unsp spec) Not detected Not Detected [facility] B. pertussis DNA ESTELITA+probe Ql (Unsp spec) Not detected Not Detected [facility] C. pneumoniae DNA ESTELITA+probe Ql (Unsp spec) Not detected Not Detected [facility] FLUAV RNA ESTELITA+probe Ql (Unsp spec) Not detected Not Detected [facility] FLUBV RNA ESTELITA+probe Ql (Unsp spec) Not detected [facility] HCoV 229E RNA ESTELITA+non-probe Ql (Nph) Not detected Not [facility] HCoV HKU1 RNA ESTELITA+non-probe Ql (Nph) Not detected [facility] HCoV NL63 RNA ESTELITA+non-probe Ql (Nph) Not detected [facility] HCoV OC43 RNA ESTELITA+non-probe Ql (Nph) Not detected Not Detected [facility] hMPV A RNA ESTELITA+probe Ql (Unsp spec) Not detected Not Detected [facility] Interpretation and review of laboratory results Normal [facility] M. pneumoniae DNA ESTELITA+probe Ql (Unsp spec) Not detected Not Detected [facility] Parainfluenza virus 1 RNA ESTELITA+probe Ql (Unsp spec) Not detected Not Detected [facility] Parainfluenza virus 2 RNA ESTELITA+probe Ql (Unsp spec) Not detected Not Detected [facility] Parainfluenza virus 3 RNA ESTELITA+probe Ql (Unsp spec) Not detected Not Detected [facility] Parainfluenza virus 4 RNA ESTELITA+probe Ql (Unsp spec) Not detected Not Detected [facility] Rhinovirus+Enteroviru s RNA ESTELITA+probe Ql (Unsp spec) Not detected Not Detected [facility] RSV RNA ESTELITA+probe Ql (Unsp spec) Not detected Not Detected [facility] SARS-CoV-2 (COVID-19) RNA ESTELITA+probe Ql (Unsp spec) Not detected NOT DETECTED [facility] ALBUMINon 04-28-2023 Albumin [Mass/Vol] 4.0 g/dL Normal 3.4-5.0 [facility] Comment on above: Performed By: #### C MP #### [facility] [address] [place] [address] Dr. Dwight Waters ALKALINE PHOSPHAon 05-30-202 3 ALP [Catalytic activity/Vol] 106 U/L Normal 46-116 [facility] Comment on above: Performed By: #### F [id number] #### [facility] [address] [place] [address] Dr. Dwight Waters BILIRUBIN CONJUGATED (DIRECT )on 04-28-2023 BILI, CONJUGATED 0.3 mg/dL Critically high 0.0-0.2 [facility] Comment on above: Performed By: #### C MP #### [facility] [address] [place] [address] Dr. Dwight Waters BILIRUBIN TOTALon 04-28-2023 Bilirubin [Mass/Vol] 1.4 mg/dL Critically high 0.2-1.0 [facility] Comment on above: Performed By: #### C MP #### [facility] [address] [place] [address] Dr. Dwight Waters BUNon 04-28-2023 Urea nitrogen [Mass/Vol] 12.0 mg/dL Normal 7.0-18.0 [facility] Comment on above: Performed By: #### U RTPCR #### [facility] [address] [place] [address] Dr. Dwight Waters CALCIUMon 04-28-2023 Calcium [Mass/Vol] 9.3 mg/dL Normal 8.5-10.1 [facility] Comment on above: Performed By: #### U RTPCR #### [facility] [address] [place] [address] Dr. Dwight Waters CBC AUTO DIFFon 04-28-2023 BASO # 0.1 103/ul Normal 0.0-0.1 [facility] Comment on above: Performed By: #### C BC #### [facility] [address] [place] [address] Dr. Dwight Waters Basophils/100 WBC (Bld) 0.9 % Normal 0.2-2.0 [facility] Comment on above: Performed By: #### C BC #### [facility] [address] [place] [address] Dr. Dwight Waters EO # 0.2 103/ul Normal 0.0-0.7 [facility] Comment on above: Performed By: #### C BC #### [facility] [address] [place] [address] Dr. Dwight Waters Eosinophils/100 WBC (Bld) 3.8 % Normal 0.9-7.0 [facility] Comment on above: Performed By: #### C BC #### [facility] [address] [place] [address] Dr. Dwight Waters Erythrocyte distribution width (RBC) [Ratio] 12.5 % Normal 11.0-15.0 [facility] Comment on above: Performed By: #### C BC #### [facility] [address] [place] [address] Dr. Dwight Waters Hematocrit (Bld) [Volume fraction] 49.8 % Normal 42.0-54.0 [facility] Comment on above: Performed By: #### C BC #### [facility] [address] [place] [address] Dr. Dwight Waters Hemoglobin (Bld) [Mass/Vol] 16.4 g/dL Normal 14.0-18.0 [facility] Comment on above: Performed By: #### C BC #### [facility] [address] [place] [address] Dr. Dwight Waters IG # 0.01 10e3/ul Normal 0.00-0.03 [facility] Comment on above: Performed By: #### C BC #### [facility] [address] [place] [address] Dr. Dwight Waters IG % 0.2 % Normal 0.0-0.5 [facility] Comment on above: Performed By: #### C BC #### [facility] [address] [place] [address] Dr. Dwight Waters LYMPH # 2.1 103/ul Normal 1.2-3.8 [facility] Comment on above: Performed By: #### C BC #### [facility] [address] [place] [address] Dr. Dwight Waters Lymphocytes/100 WBC (Bld) 39.1 % Normal 20.5-60.0 [facility] Comment on above: Performed By: #### C BC #### [facility] [address] [place] [address] Dr. Dwight Waters MANUAL DIFF REQ NO Normal [facility] Comment on above: Performed By: #### C BC #### [facility] [address] [place] [address] Dr. Dwight Waters MCH (RBC) [Entitic mass] 28.6 pg Normal 25.9-34.0 [facility] Comment on above: Performed By: #### C BC #### [facility] [address] [place] [address] Dr. Dwight Waters MCHC (RBC) [Mass/Vol] 32.9 g/dL Normal 29.9-35.2 [facility] Comment on above: Performed By: #### C BC #### [facility] [address] [place] [address] Dr. Dwight Waters MCV (RBC) [Entitic vol] 86.9 fL Normal 80.0-94.0 [facility] Comment on above: Performed By: #### C BC #### [facility] [address] [place] [address] Dr. Dwight Waters MONO # 0.6 103/ul Normal 0.3-0.8 [facility] Comment on above: Performed By: #### C BC #### [facility] [address] [place] [address] Dr. Dwight Waters Monocytes/100 WBC (Bld) 10.6 % Normal 1.7-12.0 [facility] Comment on above: Performed By: #### C BC #### [facility] [address] [place] [address] Dr. Dwight Waters NEUT # 2.5 103/ul Normal 1.4-6.5 [facility] Comment on above: Performed By: #### C BC #### [facility] [address] [place] [address] Dr. Dwight Waters Neutrophils/100 WBC (Bld) 45.4 % Normal 43.0-75.0 [facility] Comment on above: Performed By: #### C BC #### [facility] [address] [place] [address] Dr. Dwight Waters Platelet mean volume (Bld) [Entitic vol] 9.3 fL Critically low 9.5-13.5 [facility] Comment on above: Performed By: #### C BC #### [facility] [address] [place] [address] Dr. Dwight Waters PLT 248 103/ul Normal 150-450 [facility] Comment on above: Performed By: #### C BC #### [facility] [address] [place] [address] Dr. Dwight Waters RBC 5.73 106/ul Normal 4.70-6.10 [facility] Comment on above: Performed By: #### C BC #### [facility] [address] [place] [address] Dr. Dwight Waters WBC 5.5 103/ul Normal 4.0-11.0 [facility] Comment on above: Performed By: #### C BC #### [facility] [address] [place] [address] Dr. Dwight Waters CHLORIDEon 04-28-2023 Chloride [Moles/Vol] 107 mmol/L Normal 98-107 [facility] Comment on above: Performed By: #### U RTPCR #### [facility] [address] [place] [address] Dr. Dwight Waters CO2on 04-28-2023 CO2 [Moles/Vol] 28.9 mmol/L Normal 21.0-32.0 [facility] Comment on above: Performed By: #### U RTPCR #### [facility] [address] [place] [address] Dr. Dwight Waters CREATININEon 04-28-2023 Creatinine [Mass/Vol] 1.17 mg/dL Normal 0.70-1.30 [facility] Comment on above: Performed By: #### U RTPCR #### [facility] [address] [place] [address] Dr. Dwight Waters EGFR-AF PUERTO RICAN >60 Normal >=60 [facility] Comment on above: Performed By: #### U RTPCR #### [facility] [address] [place] [address] Dr. Dwight Waters EGFR-NON AF PUERTO RICAN >60 Normal >=60 [facility] Comment on above: Performed By: #### U RTPCR #### [facility] [address] [place] [address] Dr. Dwight Waters GGTon 04-28-2023 Gamma glutamyl transferase [Catalytic activity/Vol] 27 U/L Normal 15-85 [facility] Comment on above: Performed By: #### U RTPCR #### [facility] [address] [place] [address] Dr. Dwight Waters GLUCOSE BLOODon 04-28-2023 Glucose [Mass/Vol] 110 mg/dL Critically high 74-106 [facility] Comment on above: Performed By: #### U RTPCR #### [facility] [address] [place] [address] Dr. Dwight Waters MAGNESIUMon 04-28-2023 Magnesium [Mass/Vol] 1.7 mg/dL Critically low 1.8-2.4 [facility] Comment on above: Performed By: #### U RTPCR #### [facility] [address] [place] [address] Dr. Dwight Waters NAon 04-28-2023 Sodium [Moles/Vol] 144 mmol/L Normal 136-145 [facility] Comment on above: Performed By: #### U RTPCR #### [facility] [address] [place] [address] Dr. Dwight Waters PHOSPHORUSon 04-28-2023 Phosphate [Mass/Vol] 3.2 mg/dL Normal 2.6-4.7 [facility] Comment on above: Performed By: #### U RTPCR #### [facility] [address] [place] [address] Dr. Dwight Waters POTASSIUMon 04-28-2023 Potassium [Moles/Vol] 4.0 mmol/L Normal 3.5-5.1 [facility] Comment on above: Performed By: #### U RTPCR #### [facility] [address] [place] [address] Dr. Dwight Waters SGOTon 04-28-2023 AST [Catalytic activity/Vol] 25 U/L Normal 15-37 [facility] Comment on above: Performed By: #### C MP #### [facility] [address] [place] [address] Dr. Dwight Waters SGPTon 04-28-2023 ALT [Catalytic activity/Vol] 40 U/L Normal 16-63 [facility] Comment on above: Performed By: #### C MP #### [facility] [address] [place] [address] Dr. Dwight Waters URINE T PROTEIN CREAT RATIOo n 04-28-2023 Protein (U) [Mass/Vol] 10.1 mg/dL Normal <=12.0 [facility] Comment on above: Performed By: #### U RTPCR #### [facility] [address] [place] [address] Dr. Dwight Waters UR PROT CREAT RAT 0.14 Normal [facility] Comment on above: Performed By: #### U RTPCR #### [facility] [address] [place] [address] Dr. Dwight Waters URINE CREAT 74.40 mg/dL Normal 20.00-300.00 [facility] Comment on above: Performed By: #### U RTPCR #### [facility] [address] [place] [address] Dr. Dwight Waters Office Visiton 04-13-2023 Follow-up visit [id number] George Styles 1970 M Date Provider Department Center 04/13/2023 MIGUEL PARADA [facility] Family History Problem Relation Age of Onset Coronary artery disease Mother Coronary artery disease Father Family Status - Relation Status Age at Mother Father Level of Service:04416 NE OFFICE/OUTPATIENT ESTABLISHED LOW MDM 20-29 MIN Reason for Visit and Comments: Hypertension [985113] Hyperlipidemia [182] Normal [facility] BK VIRUS PCR QUANTon 023 BKV DNA QUANT PCR PLASMA Negative Normal Negative [facility] Comment on above: Result Comment: No B K DNA detected. . The linear range of the assay is 22 - 100,000,000 IU/mL. Performed By: #### B KVIRUS #### [facility] [address] [place] [address] Dr. Dwight Waters Log10 BKV DNA Plasma Normal [facility] Comment on above: Performed By: #### B KVIRUS #### [facility] [address] [place] [address] Dr. Dwight Waters FK506 (TACROLIMUS) WHOLE BLO ODon 03-04-2023 Tacrolimus (FK506), Blood 5.9 ng/mL Normal 2.0-20.0 [facility] Comment on above: Result Comment: Trou gh (immediately following transplant) 15.0 . Trough (steady state, 2 weeks or more after transplant): 3.0 - 8.0 . Performed by LC-MS/MS technology. Performed By: #### C MP #### [facility] [address] [place] [address] Dr. Dwight Waters ALBUMINon 03-02-2023 Albumin [Mass/Vol] 3.9 g/dL Normal 3.4-5.0 [facility] Comment on above: Performed By: #### U RTPCR #### [facility] [address] [place] [address] Dr. Dwight Waters ALKALINE PHOSPHAon ALP [Catalytic activity/Vol] 105 U/L Normal 46-116 [facility] Comment on above: Performed By: #### U RTPCR #### [facility] [address] [place] [address] Dr. Dwight Waters BILIRUBIN CONJUGATED (DIRECT )on 03-02-2023 BILI, CONJUGATED 0.2 mg/dL Normal 0.0-0.2 [facility] Comment on above: Performed By: #### U RTPCR #### [facility] [address] [place] [address] Dr. Dwight Waters BILIRUBIN TOTALon 03-02-2023 Bilirubin [Mass/Vol] 0.9 mg/dL Normal 0.2-1.0 [facility] Comment on above: Performed By: #### U RTPCR #### [facility] [address] [place] [address] Dr. Dwight Waters CBC AUTO DIFFon 03-02-2023 BASO # 0.1 103/ul Normal 0.0-0.1 [facility] Comment on above: Performed By: #### C BC #### [facility] [address] [place] [address] Dr. Dwight Waters Basophils/100 WBC (Bld) 0.9 % Normal 0.2-2.0 [facility] Comment on above: Performed By: #### C BC #### [facility] [address] [place] [address] Dr. Dwight Waters EO # 0.2 103/ul Normal 0.0-0.7 [facility] Comment on above: Performed By: #### C BC #### [facility] [address] [place] [address] Dr. Dwight Waters Eosinophils/100 WBC (Bld) 3.5 % Normal 0.9-7.0 [facility] Comment on above: Performed By: #### C BC #### [facility] [address] [place] [address] Dr. Dwight Waters Erythrocyte distribution width (RBC) [Ratio] 12.7 % Normal 11.0-15.0 [facility] Comment on above: Performed By: #### C BC #### [facility] [address] [place] [address] Dr. Dwight Waters Hematocrit (Bld) [Volume fraction] 48.2 % Normal 42.0-54.0 [facility] Comment on above: Performed By: #### C BC #### [facility] [address] [place] [address] Dr. Dwight Waters Hemoglobin (Bld) [Mass/Vol] 15.9 g/dL Normal 14.0-18.0 [facility] Comment on above: Performed By: #### C BC #### [facility] [address] [place] [address] Dr. Dwight Waters IG # 0.01 10e3/ul Normal 0.00-0.03 [facility] Comment on above: Performed By: #### C BC #### [facility] [address] [place] [address] Dr. Dwight Waters IG % 0.2 % Normal 0.0-0.5 [facility] Comment on above: Performed By: #### C BC #### [facility] [address] [place] [address] Dr. Dwihgt Waters LYMPH # 2.1 103/ul Normal 1.2-3.8 [facility] Comment on above: Performed By: #### C BC #### [facility] [address] [place] [address] Dr. Dwight Waters Lymphocytes/100 WBC (Bld) 37.4 % Normal 20.5-60.0 [facility] Comment on above: Performed By: #### C BC #### [facility] [address] [place] [address] Dr. Dwight Waters MANUAL DIFF REQ NO Normal [facility] Comment on above: Performed By: #### C BC #### [facility] [address] [place] [address] Dr. Dwight Waters MCH (RBC) [Entitic mass] 28.3 pg Normal 25.9-34.0 [facility] Comment on above: Performed By: #### C BC #### [facility] [address] [place] [address] Dr. Dwight Waters MCHC (RBC) [Mass/Vol] 33.0 g/dL Normal 29.9-35.2 [facility] Comment on above: Performed By: #### C BC #### [facility] [address] [place] [address] Dr. Dwight Waters MCV (RBC) [Entitic vol] 85.8 fL Normal 80.0-94.0 [facility] Comment on above: Performed By: #### C BC #### [facility] [address] [place] [address] Dr. Dwight Waters MONO # 0.6 103/ul Normal 0.3-0.8 [facility] Comment on above: Performed By: #### C BC #### [facility] [address] [place] [address] Dr. Dwight Waters Monocytes/100 WBC (Bld) 10.2 % Normal 1.7-12.0 [facility] Comment on above: Performed By: #### C BC #### [facility] [address] [place] [address] Dr. Dwight Waters NEUT # 2.7 103/ul Normal 1.4-6.5 [facility] Comment on above: Performed By: #### C BC #### [facility] [address] [place] [address] Dr. Dwight Waters Neutrophils/100 WBC (Bld) 47.8 % Normal 43.0-75.0 [facility] Comment on above: Performed By: #### C BC #### [facility] [address] [place] [address] Dr. Dwight Waters Platelet mean volume (Bld) [Entitic vol] 9.3 fL Critically low 9.5-13.5 [facility] Comment on above: Performed By: #### C BC #### [facility] [address] [place] [address] Dr. Dwight Waters PLT 241 103/ul Normal 150-450 [facility] Comment on above: Performed By: #### C BC #### [facility] [address] [place] [address] Dr. Dwight Waters RBC 5.62 106/ul Normal 4.70-6.10 [facility] Comment on above: Performed By: #### C BC #### [facility] [address] [place] [address] Dr. Dwight Waters WBC 5.7 103/ul Normal 4.0-11.0 [facility] Comment on above: Performed By: #### C BC #### [facility] [address] [place] [address] Dr. Dwight Waters GGTon 03-02-2023 Gamma glutamyl transferase [Catalytic activity/Vol] 25 U/L Normal 15-85 [facility] Comment on above: Performed By: #### U RTPCR #### [facility] [address] [place] [address] Dr. Dwight Waters MAGNESIUMon 03-02-2023 Magnesium [Mass/Vol] 1.6 mg/dL Critically low 1.8-2.4 [facility] Comment on above: Performed By: #### U RTPCR #### [facility] [address] [place] [address] Dr. Dwight Waters PHOSPHORUSon 03-02-2023 Phosphate [Mass/Vol] 3.6 mg/dL Normal 2.6-4.7 [facility] Comment on above: Performed By: #### U RTPCR #### [facility] [address] [place] [address] Dr. Dwight Waters PROF CHEM 8 (BAS METB)on Anion gap [Moles/Vol] 9.4 mmol/L Normal [facility] Comment on above: Performed By: #### U RTPCR #### [facility] [address] [place] [address] Dr. Dwight Waters Calcium [Mass/Vol] 9.3 mg/dL Normal 8.5-10.1 [facility] Comment on above: Performed By: #### U RTPCR #### [facility] [address] [place] [address] Dr. Dwight Waters Chloride [Moles/Vol] 108 mmol/L Critically high 98-107 [facility] Comment on above: Performed By: #### U RTPCR #### [facility] [address] [place] [address] Dr. Dwight Waters CO2 [Moles/Vol] 27.2 mmol/L Normal 21.0-32.0 [facility] Comment on above: Performed By: #### U RTPCR #### [facility] [address] [place] [address] Dr. Dwight Waters Creatinine [Mass/Vol] 1.12 mg/dL Normal 0.70-1.30 [facility] Comment on above: Performed By: #### U RTPCR #### [facility] [address] [place] [address] Dr. Dwight Waters EGFR-AF PUERTO RICAN >60 Normal >=60 [facility] Comment on above: Performed By: #### U RTPCR #### [facility] [address] [place] [address] Dr. Dwight Waters EGFR-NON AF PUERTO RICAN >60 Normal >=60 [facility] Comment on above: Performed By: #### U RTPCR #### [facility] [address] [place] [address] Dr. Dwight Waters Glucose [Mass/Vol] 113 mg/dL Critically high 74-106 [facility] Comment on above: Performed By: #### U RTPCR #### [facility] [address] [address] [address] Dwight Waters Potassium [Moles/Vol] 3.6 mmol/L Normal 3.5-5.1 [facility] Comment on above: Performed By: #### U RTPCR #### [facility] [address] [place] [address] Dr. Dwight Waters Sodium [Moles/Vol] 141 mmol/L Normal 136-145 [facility] Comment on above: Performed By: #### U RTPCR #### [facility] [address] [place] [address] Dr. Dwight Waters Urea nitrogen [Mass/Vol] 14.0 mg/dL Normal 7.0-18.0 [facility] Comment on above: Performed By: #### U RTPCR #### [facility] [address] [place] [address] Dr. Dwight Waters Urea nitrogen/Creatinine [Mass ratio] 12.5 mg/mg Normal [facility] Comment on above: Performed By: #### U RTPCR #### [facility] [address] [place] [address] Dr. Dwight Waters SGOTon 03-02-2023 AST [Catalytic activity/Vol] 20 U/L Normal 15-37 [facility] Comment on above: Performed By: #### U RTPCR #### [facility] [address] [place] [address] Dr. Dwight Waters SGPTon 03-02-2023 ALT [Catalytic activity/Vol] 30 U/L Normal 16-63 [facility] Comment on above: Performed By: #### U RTPCR #### [facility] [address] [place] [address] Dr. Dwight Waters URINE T PROTEIN CREAT RATIOo n 03-02-2023 Protein (U) [Mass/Vol] 10.3 mg/dL Normal <=12.0 [facility] Comment on above: Performed By: #### U RTPCR #### [facility] [address] [place] [address] Dr. Dwight Waters UR PROT CREAT RAT 0.15 Normal [facility] Comment on above: Performed By: #### U RTPCR #### [facility] [address] [place] [address] Dr. Dwight Waters URINE CREAT 68.96 mg/dL Normal 20.00-300.00 [facility] Comment on above: Performed By: #### U RTPCR #### [facility] [address] [place] [address] Dr. Dwight Waters BK VIRUS PCR QUANTon 023 BKV DNA QUANT PCR PLASMA Negative Normal Negative [facility] Comment on above: Result Comment: No B K DNA detected. . The linear range of the assay is 22 - 100,000,000 IU/mL. Performed By: #### C MP #### [facility] [address] [place] [address] Dr. Dwight Waters Log10 BKV DNA Plasma Normal [facility] Comment on above: Performed By: #### C MP #### [facility] [address] [place] [address] Dr. Dwight Waters FK506 (TACROLIMUS) WHOLE BLO ODon 12-31-2022 Tacrolimus (FK506), Blood 5.6 ng/mL Normal 2.0-20.0 [facility] Comment on above: Result Comment: Trou gh (immediately following transplant) 15.0 . Trough (steady state, 2 weeks or more after transplant): 3.0 - 8.0 . Performed by LC-MS/MS technology. Performed By: #### C MP #### [facility] [address] [place] [address] Dr. Dwight Waters ALKALINE PHOSPHAon ALP [Catalytic activity/Vol] 96 U/L Normal 46-116 [facility] Comment on above: Performed By: #### C BC #### [facility] [address] [place] [address] Dr. Dwight Waters BILIRUBIN CONJUGATED (DIRECT )on 12-29-2022 BILI, CONJUGATED 0.3 mg/dL Critically high 0.0-0.2 [facility] Comment on above: Performed By: #### C BC #### [facility] [address] [place] [address] Dr. Dwight Waters BILIRUBIN TOTALon 12-29-2022 Bilirubin [Mass/Vol] 1.1 mg/dL Critically high 0.2-1.0 [facility] Comment on above: Performed By: #### C BC #### [facility] [address] [place] [address] Dr. Dwight Waters CBC AUTO DIFFon 12-29-2022 BASO # 0.1 103/ul Normal 0.0-0.1 [facility] Comment on above: Performed By: #### C MP #### [facility] [address] [place] [address] Dr. Dwight Waters Basophils/100 WBC (Bld) 0.8 % Normal 0.2-2.0 [facility] Comment on above: Performed By: #### C MP #### [facility] [address] [place] [address] Dr. Dwight Waters EO # 0.2 103/ul Normal 0.0-0.7 [facility] Comment on above: Performed By: #### C MP #### [facility] [address] [place] [address] Dr. wDight Waters Eosinophils/100 WBC (Bld) 3.0 % Normal 0.9-7.0 [facility] Comment on above: Performed By: #### C MP #### [facility] [address] [place] [address] Dr. Dwight Waters Erythrocyte distribution width (RBC) [Ratio] 12.9 % Normal 11.0-15.0 [facility] Comment on above: Performed By: #### C MP #### [facility] [address] [place] [address] Dr. Dwight Waters Hematocrit (Bld) [Volume fraction] 46.9 % Normal 42.0-54.0 [facility] Comment on above: Performed By: #### C MP #### [facility] [address] [place] [address] Dr. Dwight Waters Hemoglobin (Bld) [Mass/Vol] 16.1 g/dL Normal 14.0-18.0 [facility] Comment on above: Performed By: #### C MP #### [facility] [address] [place] [address] Dr. Dwight Waters IG # 0.01 10e3/ul Normal 0.00-0.03 [facility] Comment on above: Performed By: #### C MP #### [facility] [address] [place] [address] Dr. Dwight Waters IG % 0.2 % Normal 0.0-0.5 [facility] Comment on above: Performed By: #### C MP #### [facility] [address] [place] [address] Dr. Dwight Waters LYMPH # 1.8 103/ul Normal 1.2-3.8 [facility] Comment on above: Performed By: #### C MP #### [facility] [address] [place] [address] Dr. Dwight Waters Lymphocytes/100 WBC (Bld) 27.9 % Normal 20.5-60.0 [facility] Comment on above: Performed By: #### C MP #### [facility] [address] [place] [address] Dr. Dwight Waters MANUAL DIFF REQ NO Normal [facility] Comment on above: Performed By: #### C MP #### [facility] [address] [place] [address] Dr. Dwight Waters MCH (RBC) [Entitic mass] 28.5 pg Normal 25.9-34.0 [facility] Comment on above: Performed By: #### C MP #### [facility] [address] [place] [address] Dr. Dwight Waters MCHC (RBC) [Mass/Vol] 34.3 g/dL Normal 29.9-35.2 [facility] Comment on above: Performed By: #### C MP #### [facility] [address] [place] [address] Dr. Dwight Waters MCV (RBC) [Entitic vol] 83.2 fL Normal 80.0-94.0 [facility] Comment on above: Performed By: #### C MP #### [facility] [address] [place] [address] Dr. Dwight Waters MONO # 0.5 103/ul Normal 0.3-0.8 [facility] Comment on above: Performed By: #### C MP #### [facility] [address] [place] [address] Dr. Dwight Waters Monocytes/100 WBC (Bld) 8.1 % Normal 1.7-12.0 [facility] Comment on above: Performed By: #### C MP #### [facility] [address] [place] [address] Dr. Dwight Waters NEUT # 3.8 103/ul Normal 1.4-6.5 [facility] Comment on above: Performed By: #### C MP #### [facility] [address] [place] [address] Dr. Dwight Waters Neutrophils/100 WBC (Bld) 60.0 % Normal 43.0-75.0 [facility] Comment on above: Performed By: #### C MP #### [facility] [address] [place] [address] Dr. Dwight Waters Platelet mean volume (Bld) [Entitic vol] 9.2 fL Critically low 9.5-13.5 [facility] Comment on above: Performed By: #### C MP #### [facility] [address] [place] [address] Dr. Dwight Waters PLT 225 103/ul Normal 150-450 [facility] Comment on above: Performed By: #### C MP #### [facility] [address] [place] [address] Dr. Dwight Waters RBC 5.64 106/ul Normal 4.70-6.10 [facility] Comment on above: Performed By: #### C MP #### [facility] [address] [address] [address] Dwight Waters WBC 6.3 103/ul Normal 4.0-11.0 [facility] Comment on above: Performed By: #### C MP #### [facility] [address] [address] [address] Dwight Waters GGTon 12-29-2022 Gamma glutamyl transferase [Catalytic activity/Vol] 24 U/L Normal 15-85 [facility] Comment on above: Performed By: #### C MP #### [facility] [address] [address] [address] Dwight Waters LIPID PROFILEon 12-29-2022 CHOL-HDL RATIO NORM SEE BELOW Normal [facility] Comment on above: Result Comment: 3.3 - 4.4 LOW RISK 4.4 - 7.1 AVERAGE RISK 7.1 - 11.0 MODERATE RISK >11.0 HIGH RISK Performed By: #### U RTPCR #### [facility] [address] [place] [address] Dr. Dwight Waters Cholesterol [Mass/Vol] 87 mg/dL Normal <=200 [facility] Comment on above: Performed By: #### U RTPCR #### [facility] [address] [place] [address] Dr. Dwight Waters Cholesterol in HDL [Mass/Vol] 44 mg/dL Normal 40-60 [facility] Comment on above: Performed By: #### U RTPCR #### [facility] [address] [address] [address] Dwight Waters Cholesterol in LDL [Mass/Vol] 33.0 mg/dL Normal [facility] Comment on above: Performed By: #### U RTPCR #### [facility] [address] [address] [address] Dwight Waters Cholesterol.total/Cho lesterol in HDL [Mass ratio] 2.0 {ratio} Normal [facility] Comment on above: Performed By: #### U RTPCR #### [facility] [address] [address] [address] Dwight Waters HDL NORMAL > or = 60 mg/dl - LO W CARDIOVASCULAR RISK <40 mg/dl - HIGH CARDIOVASCULAR RISK Normal [facility] Comment on above: Performed By: #### U RTPCR #### [facility] [address] [address] [address] Dwight Waters LDL CALC NORMAL SEE BELOW Normal [facility] Comment on above: Result Comment: <100 mg/dl OPTIMAL 100 - 129 mg/dl NEAR OR ABOVE OPTIMAL 130 - 159 mg/dl BORDERLINE HIGH 160 - 189 mg/dl HIGH >190 mg/dl VERY HIGH Performed By: #### U RTPCR #### [facility] [address] [address] [address] Dwight Waters Triglyceride [Mass/Vol] 50 mg/dL Normal <=150 [facility] Comment on above: Performed By: #### U RTPCR #### [facility] [address] [address] [address] Dwight Waters VLDL CALC 10.0 mg/dL Normal [facility] Comment on above: Performed By: #### U RTPCR #### [facility] [address] [address] [address] Dwight Waters MAGNESIUMon 12-29-2022 Magnesium [Mass/Vol] 1.6 mg/dL Critically low 1.8-2.4 [facility] Comment on above: Performed By: #### C BC #### [facility] [address] [address] [address] Dwight Waters RENAL FUNCTION PANELon 12-29 Albumin [Mass/Vol] 3.9 g/dL Normal 3.4-5.0 [facility] Comment on above: Performed By: #### C BC #### [facility] [address] [address] [address] Dwight Waters Calcium [Mass/Vol] 9.2 mg/dL Normal 8.5-10.1 [facility] Comment on above: Performed By: #### C BC #### [facility] [address] [address] [address] Dwight Waters Chloride [Moles/Vol] 109 mmol/L Critically high 98-107 [facility] Comment on above: Performed By: #### C BC #### [facility] [address] [address] [address] Dwight Waters CO2 [Moles/Vol] 27.0 mmol/L Normal 21.0-32.0 [facility] Comment on above: Performed By: #### C BC #### [facility] [address] [address] [address] Dwight Waters Creatinine [Mass/Vol] 1.02 mg/dL Normal 0.70-1.30 [facility] Comment on above: Performed By: #### C BC #### [facility] [address] [address] [address] Dwight Waters EGFR-AF PUERTO RICAN >60 Normal >=60 [facility] Comment on above: Performed By: #### C BC #### [facility] [address] [place] [address] Dr. Dwight Waters EGFR-NON AF PUERTO RICAN >60 Normal >=60 [facility] Comment on above: Performed By: #### C BC #### [facility] [address] [address] [address] Dwight Waters Glucose [Mass/Vol] 117 mg/dL Critically high 74-106 [facility] Comment on above: Performed By: #### C BC #### [facility] [address] [address] [address] Dwight Waters Phosphate [Mass/Vol] 3.2 mg/dL Normal 2.6-4.7 [facility] Comment on above: Performed By: #### C BC #### [facility] [address] [address] [address] Dwight Waters Potassium [Moles/Vol] 4.1 mmol/L Normal 3.5-5.1 [facility] Comment on above: Performed By: #### C BC #### [facility] [address] [address] [address] Dwight Waters Sodium [Moles/Vol] 144 mmol/L Normal 136-145 [facility] Comment on above: Performed By: #### C BC #### [facility] [address] [place] [address] Dr. Dwight Waters Urea nitrogen [Mass/Vol] 13.0 mg/dL Normal 7.0-18.0 [facility] Comment on above: Performed By: #### C BC #### [facility] [address] [place] [address] Dr. Dwight Waters SGOTon 12-29-2022 AST [Catalytic activity/Vol] 21 U/L Normal 15-37 [facility] Comment on above: Performed By: #### C BC #### [facility] [address] [place] [address] Dr. Dwight Waters SGPTon 12-29-2022 ALT [Catalytic activity/Vol] 32 U/L Normal 16-63 [facility] Comment on above: Performed By: #### C BC #### [facility] [address] [place] [address] Dr. Dwight Waters URINE T PROTEIN CREAT RATIOo n 12-29-2022 Protein (U) [Mass/Vol] 14.3 mg/dL Critically high <=12.0 [facility] Comment on above: Performed By: #### U RTPCR #### [facility] [address] [place] [address] Dr. Dwight Waters UR PROT CREAT RAT 0.17 Normal [facility] Comment on above: Performed By: #### U RTPCR #### [facility] [address] [place] [address] Dr. Dwight Waters URINE CREAT 86.58 mg/dL Normal 20.00-300.00 [facility] Comment on above: Performed By: #### U RTPCR #### [facility] [address] [place] [address] Dr. Dwight Waters FK506 (TACROLIMUS) WHOLE BLO ODon 11-06-2022 Tacrolimus (FK506), Blood 4.9 ng/mL Normal 2.0-20.0 [facility] Comment on above: Result Comment: Trou gh (immediately following transplant) 15.0 . Trough (steady state, 2 weeks or more after transplant): 3.0 - 8.0 . Performed by LC-MS/MS technology. Performed By: #### U RTPCR #### [facility] [address] [place] [address] Dr. Dwight Waters ALKALINE PHOSPHAon ALP [Catalytic activity/Vol] 86 U/L Normal 46-116 [facility] Comment on above: Performed By: #### U RTPCR #### [facility] [address] [place] [address] Dr. Dwight Waters BILIRUBIN CONJUGATED (DIRECT )on 11-04-2022 BILI, CONJUGATED 0.2 mg/dL Normal 0.0-0.2 [facility] Comment on above: Performed By: #### U RTPCR #### [facility] [address] [place] [address] Dr. Dwight Waters BILIRUBIN TOTALon 11-04-2022 Bilirubin [Mass/Vol] 0.8 mg/dL Normal 0.2-1.0 [facility] Comment on above: Performed By: #### U RTPCR #### [facility] [address] [place] [address] Dr. Dwight Waters CBC AUTO DIFFon 11-04-2022 BASO # 0.1 103/ul Normal 0.0-0.1 [facility] Comment on above: Performed By: #### U RTPCR #### [facility] [address] [place] [address] Dr. Dwight Waters Basophils/100 WBC (Bld) 0.9 % Normal 0.2-2.0 [facility] Comment on above: Performed By: #### U RTPCR #### [facility] [address] [place] [address] Dr. Dwight Waters EO # 0.2 103/ul Normal 0.0-0.7 [facility] Comment on above: Performed By: #### U RTPCR #### [facility] [address] [place] [address] Dr. Dwight Waters Eosinophils/100 WBC (Bld) 3.7 % Normal 0.9-7.0 [facility] Comment on above: Performed By: #### U RTPCR #### [facility] [address] [place] [address] Dr. Dwight Waters Erythrocyte distribution width (RBC) [Ratio] 12.9 % Normal 11.0-15.0 [facility] Comment on above: Performed By: #### U RTPCR #### [facility] [address] [place] [address] Dr. Dwight Waters Hematocrit (Bld) [Volume fraction] 48.3 % Normal 42.0-54.0 [facility] Comment on above: Performed By: #### U RTPCR #### [facility] [address] [place] [address] Dr. Dwight Waters Hemoglobin (Bld) [Mass/Vol] 15.6 g/dL Normal 14.0-18.0 [facility] Comment on above: Performed By: #### U RTPCR #### [facility] [address] [place] [address] Dr. Dwight Waters IG # 0.01 10e3/ul Normal 0.00-0.03 [facility] Comment on above: Performed By: #### U RTPCR #### [facility] [address] [place] [address] Dr. Dwight Waters IG % 0.2 % Normal 0.0-0.5 [facility] Comment on above: Performed By: #### U RTPCR #### [facility] [address] [place] [address] Dr. Dwight Waters LYMPH # 1.9 103/ul Normal 1.2-3.8 [facility] Comment on above: Performed By: #### U RTPCR #### [facility] [address] [place] [address] Dr. Dwight Waters Lymphocytes/100 WBC (Bld) 33.0 % Normal 20.5-60.0 [facility] Comment on above: Performed By: #### U RTPCR #### [facility] [address] [place] [address] Dr. Dwight Waters MANUAL DIFF REQ NO Normal [facility] Comment on above: Performed By: #### U RTPCR #### [facility] [address] [place] [address] Dr. Dwight Waters MCH (RBC) [Entitic mass] 27.6 pg Normal 25.9-34.0 [facility] Comment on above: Performed By: #### U RTPCR #### [facility] [address] [place] [address] Dr. Dwight Waters MCHC (RBC) [Mass/Vol] 32.3 g/dL Normal 29.9-35.2 [facility] Comment on above: Performed By: #### U RTPCR #### [facility] [address] [place] [address] Dr. Dwight Waters MCV (RBC) [Entitic vol] 85.5 fL Normal 80.0-94.0 [facility] Comment on above: Performed By: #### U RTPCR #### [facility] [address] [place] [address] Dr. Dwight Waters MONO # 0.5 103/ul Normal 0.3-0.8 [facility] Comment on above: Performed By: #### U RTPCR #### [facility] [address] [place] [address] Dr. Dwight Waters Monocytes/100 WBC (Bld) 8.8 % Normal 1.7-12.0 [facility] Comment on above: Performed By: #### U RTPCR #### [facility] [address] [place] [address] Dr. Dwight Waters NEUT # 3.1 103/ul Normal 1.4-6.5 [facility] Comment on above: Performed By: #### U RTPCR #### [facility] [address] [place] [address] Dr. Dwight Waters Neutrophils/100 WBC (Bld) 53.4 % Normal 43.0-75.0 [facility] Comment on above: Performed By: #### U RTPCR #### [facility] [address] [place] [address] Dr. Dwight Waters Platelet mean volume (Bld) [Entitic vol] 9.2 fL Critically low 9.5-13.5 [facility] Comment on above: Performed By: #### U RTPCR #### [facility] [address] [address] [address] Dwight Waters PLT 255 103/ul Normal 150-450 [facility] Comment on above: Performed By: #### U RTPCR #### [facility] [address] [place] [address] Dr. Dwight Waters RBC 5.65 106/ul Normal 4.70-6.10 [facility] Comment on above: Performed By: #### U RTPCR #### [facility] [address] [address] [address] Dwight Waters WBC 5.7 103/ul Normal 4.0-11.0 [facility] Comment on above: Performed By: #### U RTPCR #### [facility] [address] [place] [address] Dr. Dwight Waters GGTon 11-04-2022 Gamma glutamyl transferase [Catalytic activity/Vol] 22 U/L Normal 15-85 [facility] Comment on above: Performed By: #### U RTPCR #### [facility] [address] [place] [address] Dr. Dwight Waters MAGNESIUMon 11-04-2022 Magnesium [Mass/Vol] 1.8 mg/dL Normal 1.8-2.4 [facility] Comment on above: Performed By: #### U RTPCR #### [facility] [address] [place] [address] Dr. Dwight Waters RENAL FUNCTION PANELon 11-04 Albumin [Mass/Vol] 3.8 g/dL Normal 3.4-5.0 [facility] Comment on above: Performed By: #### U RTPCR #### [facility] [address] [place] [address] Dr. Dwight Waters Calcium [Mass/Vol] 9.3 mg/dL Normal 8.5-10.1 [facility] Comment on above: Performed By: #### U RTPCR #### [facility] [address] [place] [address] Dr. Dwight Waters Chloride [Moles/Vol] 107 mmol/L Normal 98-107 [facility] Comment on above: Performed By: #### U RTPCR #### [facility] [address] [address] [address] Dwight Waters CO2 [Moles/Vol] 29.2 mmol/L Normal 21.0-32.0 [facility] Comment on above: Performed By: #### U RTPCR #### [facility] [address] [place] [address] Dr. Dwight Waters Creatinine [Mass/Vol] 1.07 mg/dL Normal 0.70-1.30 [facility] Comment on above: Performed By: #### U RTPCR #### [facility] [address] [place] [address] Dr. Dwight Waters EGFR-AF PUERTO RICAN >60 Normal >=60 [facility] Comment on above: Performed By: #### U RTPCR #### [facility] [address] [place] [address] Dr. Dwight Waters EGFR-NON AF PUERTO RICAN >60 Normal >=60 [facility] Comment on above: Performed By: #### U RTPCR #### [facility] [address] [place] [address] Dr. Dwight Waters Glucose [Mass/Vol] 106 mg/dL Normal 74-106 [facility] Comment on above: Performed By: #### U RTPCR #### [facility] [address] [place] [address] Dr. Dwight Waters Phosphate [Mass/Vol] 2.8 mg/dL Normal 2.6-4.7 [facility] Comment on above: Performed By: #### U RTPCR #### [facility] [address] [place] [address] Dr. Dwight Waters Potassium [Moles/Vol] 4.1 mmol/L Normal 3.5-5.1 [facility] Comment on above: Performed By: #### U RTPCR #### [facility] [address] [place] [address] Dr. Dwight Waters Sodium [Moles/Vol] 143 mmol/L Normal 136-145 [facility] Comment on above: Performed By: #### U RTPCR #### [facility] [address] [place] [address] Dr. Dwight Waters Urea nitrogen [Mass/Vol] 12.0 mg/dL Normal 7.0-18.0 [facility] Comment on above: Performed By: #### U RTPCR #### [facility] [address] [place] [address] Dr. Dwight Waters SGOTon 11-04-2022 AST [Catalytic activity/Vol] 19 U/L Normal 15-37 [facility] Comment on above: Performed By: #### U RTPCR #### [facility] [address] [place] [address] Dr. Dwight Waters SGPTon 11-04-2022 ALT [Catalytic activity/Vol] 28 U/L Normal 16-63 [facility] Comment on above: Performed By: #### U RTPCR #### [facility] [address] [place] [address] Dr. Dwight Waters URINE T PROTEIN CREAT RATIOo n 11-04-2022 Protein (U) [Mass/Vol] 10.7 mg/dL Normal <=12.0 [facility] Comment on above: Performed By: #### U RTPCR #### [facility] [address] [place] [address] Dr. Dwight Waters UR PROT CREAT RAT 0.13 Normal [facility] Comment on above: Performed By: #### U RTPCR #### [facility] [address] [place] [address] Dr. Dwight Waters URINE CREAT 84.50 mg/dL Normal 20.00-300.00 [facility] Comment on above: Performed By: #### U RTPCR #### [facility] [address] [place] [address] Dr. Dwight Waters FK506 (TACROLIMUS) WHOLE BLO ODon 09-18-2022 Tacrolimus (FK506), Blood 4.6 ng/mL Normal 2.0-20.0 [facility] Comment on above: Result Comment: Trou gh (immediately following transplant) 15.0 . Trough (steady state, 2 weeks or more after transplant): 3.0 - 8.0 . Performed by LC-MS/MS technology. Performed By: #### U RTPCR #### [facility] [address] [place] [address] Dr. Dwight Waters BK VIRUS PCR QUANTon 022 BKV DNA QUANT PCR PLASMA Negative Normal Negative [facility] Comment on above: Result Comment: No B K DNA detected. . The linear range of the assay is 22 - 100,000,000 IU/mL. Performed By: #### U RTPCR #### [facility] [address] [place] [address] Dr. Dwight Waters Log10 BKV DNA Plasma Normal [facility] Comment on above: Performed By: #### U RTPCR #### [facility] [address] [place] [address] Dr. Dwight Waters ALKALINE PHOSPHAon ALP [Catalytic activity/Vol] 92 U/L Normal 46-116 [facility] Comment on above: Performed By: #### U RTPCR #### [facility] [address] [place] [address] Dr. Dwight Waters BILIRUBIN CONJUGATED (DIRECT )on 09-15-2022 BILI, CONJUGATED 0.3 mg/dL Critically high 0.0-0.2 [facility] Comment on above: Performed By: #### U RTPCR #### [facility] [address] [place] [address] Dr. Dwight Waters BILIRUBIN TOTALon 09-15-2022 Bilirubin [Mass/Vol] 1.1 mg/dL Critically high 0.2-1.0 [facility] Comment on above: Performed By: #### U RTPCR #### [facility] [address] [place] [address] Dr. Dwight Waters CBC AUTO DIFFon 09-15-2022 BASO # 0.1 103/ul Normal 0.0-0.1 [facility] Comment on above: Performed By: #### C BC #### [facility] [address] [place] [address] Dr. Dwight Waters Basophils/100 WBC (Bld) 0.8 % Normal 0.2-2.0 [facility] Comment on above: Performed By: #### C BC #### [facility] [address] [place] [address] Dr. Dwight Waters EO # 0.2 103/ul Normal 0.0-0.7 [facility] Comment on above: Performed By: #### C BC #### [facility] [address] [place] [address] Dr. Dwight Waters Eosinophils/100 WBC (Bld) 3.5 % Normal 0.9-7.0 [facility] Comment on above: Performed By: #### C BC #### [facility] [address] [place] [address] Dr. Dwight Waters Erythrocyte distribution width (RBC) [Ratio] 13.0 % Normal 11.0-15.0 [facility] Comment on above: Performed By: #### C BC #### [facility] [address] [place] [address] Dr. Dwight Waters Hematocrit (Bld) [Volume fraction] 50.0 % Normal 42.0-54.0 [facility] Comment on above: Performed By: #### C BC #### [facility] [address] [place] [address] Dr. Dwight Waters Hemoglobin (Bld) [Mass/Vol] 16.0 g/dL Normal 14.0-18.0 [facility] Comment on above: Performed By: #### C BC #### [facility] [address] [place] [address] Dr. Dwight Waters IG # 0.02 10e3/ul Normal 0.00-0.03 [facility] Comment on above: Performed By: #### C BC #### [facility] [address] [place] [address] Dr. Dwight Waters IG % 0.3 % Normal 0.0-0.5 [facility] Comment on above: Performed By: #### C BC #### [facility] [address] [place] [address] Dr. Dwight Waters LYMPH # 1.8 103/ul Normal 1.2-3.8 [facility] Comment on above: Performed By: #### C BC #### [facility] [address] [place] [address] Dr. Dwight Waters Lymphocytes/100 WBC (Bld) 26.5 % Normal 20.5-60.0 [facility] Comment on above: Performed By: #### C BC #### [facility] [address] [place] [address] Dr. Dwight Waters MANUAL DIFF REQ NO Normal [facility] Comment on above: Performed By: #### C BC #### [facility] [address] [place] [address] Dr. Dwight Waters MCH (RBC) [Entitic mass] 28.1 pg Normal 25.9-34.0 [facility] Comment on above: Performed By: #### C BC #### [facility] [address] [place] [address] Dr. Dwight Waters MCHC (RBC) [Mass/Vol] 32.0 g/dL Normal 29.9-35.2 [facility] Comment on above: Performed By: #### C BC #### [facility] [address] [place] [address] Dr. Dwight Waters MCV (RBC) [Entitic vol] 87.9 fL Normal 80.0-94.0 [facility] Comment on above: Performed By: #### C BC #### [facility] [address] [place] [address] Dr. Dwight Waters MONO # 0.5 103/ul Normal 0.3-0.8 [facility] Comment on above: Performed By: #### C BC #### [facility] [address] [place] [address] Dr. Dwight Waters Monocytes/100 WBC (Bld) 8.1 % Normal 1.7-12.0 [facility] Comment on above: Performed By: #### C BC #### [facility] [address] [place] [address] Dr. Dwight Waters NEUT # 4.0 103/ul Normal 1.4-6.5 [facility] Comment on above: Performed By: #### C BC #### [facility] [address] [place] [address] Dr. Dwight Waters Neutrophils/100 WBC (Bld) 60.8 % Normal 43.0-75.0 [facility] Comment on above: Performed By: #### C BC #### [facility] [address] [place] [address] Dr. Dwight Waters Platelet mean volume (Bld) [Entitic vol] 9.4 fL Critically low 9.5-13.5 [facility] Comment on above: Performed By: #### C BC #### [facility] [address] [place] [address] Dr. Dwight Waters PLT 265 103/ul Normal 150-450 [facility] Comment on above: Performed By: #### C BC #### [facility] [address] [place] [address] Dr. Dwight Waters RBC 5.69 106/ul Normal 4.70-6.10 [facility] Comment on above: Performed By: #### C BC #### [facility] [address] [place] [address] Dr. Dwight Waters WBC 6.6 103/ul Normal 4.0-11.0 [facility] Comment on above: Performed By: #### C BC #### [facility] [address] [place] [address] Dr. Dwight Waters GGTon 09-15-2022 Gamma glutamyl transferase [Catalytic activity/Vol] 23 U/L Normal 15-85 [facility] Comment on above: Performed By: #### U RTPCR #### [facility] [address] [place] [address] Dr. Dwight Waters MAGNESIUMon 09-15-2022 Magnesium [Mass/Vol] 1.8 mg/dL Normal 1.8-2.4 [facility] Comment on above: Performed By: #### U RTPCR #### [facility] [address] [place] [address] Dr. Dwight Waters RENAL FUNCTION PANELon 09-15 Albumin [Mass/Vol] 4.1 g/dL Normal 3.4-5.0 [facility] Comment on above: Performed By: #### C BC #### [facility] [address] [address] [address] Dwight Waters Calcium [Mass/Vol] 9.3 mg/dL Normal 8.5-10.1 [facility] Comment on above: Performed By: #### C BC #### [facility] [address] [address] [address] Dwight Waters Chloride [Moles/Vol] 107 mmol/L Normal 98-107 [facility] Comment on above: Performed By: #### C BC #### [facility] [address] [place] [address] Dr. Dwight Waters CO2 [Moles/Vol] 25.6 mmol/L Normal 21.0-32.0 [facility] Comment on above: Performed By: #### C BC #### [facility] [address] [place] [address] Dr. Dwight Waters Creatinine [Mass/Vol] 1.01 mg/dL Normal 0.70-1.30 [facility] Comment on above: Performed By: #### C BC #### [facility] [address] [place] [address] Dr. Dwight Waters EGFR-AF PUERTO RICAN >60 Normal >=60 [facility] Comment on above: Performed By: #### C BC #### [facility] [address] [place] [address] Dr. Dwight Waters EGFR-NON AF PUERTO RICAN >60 Normal >=60 [facility] Comment on above: Performed By: #### C BC #### [facility] [address] [address] [address] Dwight Waters Glucose [Mass/Vol] 119 mg/dL Critically high 74-106 [facility] Comment on above: Performed By: #### C BC #### [facility] [address] [place] [address] Dr. Dwight Waters Phosphate [Mass/Vol] 2.8 mg/dL Normal 2.6-4.7 [facility] Comment on above: Performed By: #### C BC #### [facility] [address] [place] [address] Dr. Dwight Waters Potassium [Moles/Vol] 4.0 mmol/L Normal 3.5-5.1 [facility] Comment on above: Performed By: #### C BC #### [facility] [address] [place] [address] Dr. Dwight Waters Sodium [Moles/Vol] 141 mmol/L Normal 136-145 [facility] Comment on above: Performed By: #### C BC #### [facility] [address] [place] [address] Dr. Dwight Waters Urea nitrogen [Mass/Vol] 15.0 mg/dL Normal 7.0-18.0 [facility] Comment on above: Performed By: #### C BC #### [facility] [address] [place] [address] Dr. Dwight Waters SGOTon 09-15-2022 AST [Catalytic activity/Vol] 18 U/L Normal 15-37 [facility] Comment on above: Performed By: #### U RTPCR #### [facility] [address] [place] [address] Dr. Dwight Waters SGPTon 09-15-2022 ALT [Catalytic activity/Vol] 32 U/L Normal 16-63 [facility] Comment on above: Performed By: #### C BC #### [facility] [address] [place] [address] Dr. Dwight Waters URINE T PROTEIN CREAT RATIOo n 09-15-2022 Protein (U) [Mass/Vol] 14.1 mg/dL Critically high <=12.0 [facility] Comment on above: Performed By: #### U RTPCR #### [facility] [address] [place] [address] Dr. Dwight Waters UR PROT CREAT RAT 0.14 Normal [facility] Comment on above: Performed By: #### U RTPCR #### [facility] [address] [place] [address] Dr. Dwight Waters URINE CREAT 98.89 mg/dL Normal 20.00-300.00 [facility] Comment on above: Performed By: #### U RTPCR #### [facility] [address] [address] [address] Dwight Waters US CAROTID ART BILon [...] MÓNICA JIMENEZ Date: 2022-08-28 13:20 Normal [facility] FK506 (TACROLIMUS) WHOLE BLO ODon 08-17-2022 Tacrolimus (FK506), Blood 9.9 ng/mL Normal 2.0-20.0 [facility] Comment on above: Result Comment: Trou gh (immediately following transplant) 15.0 . Trough (steady state, 2 weeks or more after transplant): 3.0 - 8.0 . Performed by LC-MS/MS technology. Performed By: #### F [id number] #### [facility] [address] [place] [address] Dr. Dwight Waters BK VIRUS PCR QUANTon 022 BKV DNA QUANT PCR PLASMA Negative Normal Negative [facility] Comment on above: Result Comment: No B K DNA detected. . The linear range of the assay is 22 - 100,000,000 IU/mL. Performed By: #### U RTPCR #### [facility] [address] [place] [address] Dr. Dwight Waters Log10 BKV DNA Plasma Normal [facility] Comment on above: Performed By: #### U RTPCR #### [facility] [address] [place] [address] Dr. Dwight Waters ALBUMINon 08-14-2022 Albumin [Mass/Vol] 4.2 g/dL Normal 3.4-5.0 [facility] Comment on above: Performed By: #### F [id number] #### [facility] [address] [place] [address] Dr. Dwight Waters ALKALINE PHOSPHAon 2 ALP [Catalytic activity/Vol] 92 U/L Normal 46-116 [facility] Comment on above: Performed By: #### C BC #### [facility] [address] [place] [address] Dr. Dwight Waters BILIRUBIN CONJUGATED (DIRECT )on 08-14-2022 BILI, CONJUGATED 0.3 mg/dL Critically high 0.0-0.2 [facility] Comment on above: Performed By: #### F [id number] #### [facility] [address] [place] [address] Dr. Dwight Waters BILIRUBIN TOTALon 08-14-2022 Bilirubin [Mass/Vol] 1.5 mg/dL Critically high 0.2-1.0 [facility] Comment on above: Performed By: #### F [id number] #### [facility] [address] [place] [address] Dr. Dwight Waters BUNon 08-14-2022 Urea nitrogen [Mass/Vol] 11.0 mg/dL Normal 7.0-18.0 [facility] Comment on above: Performed By: #### C BC #### [facility] [address] [place] [address] Dr. Dwight Waters CALCIUMon 08-14-2022 Calcium [Mass/Vol] 9.4 mg/dL Normal 8.5-10.1 [facility] Comment on above: Performed By: #### F [id number] #### [facility] [address] [place] [address] Dr. Dwight Waters CBC AUTO DIFFon 08-14-2022 BASO # 0.0 103/ul Normal 0.0-0.1 [facility] Comment on above: Performed By: #### C MP #### [facility] [address] [place] [address] Dr. Dwight Waters Basophils/100 WBC (Bld) 0.5 % Normal 0.2-2.0 [facility] Comment on above: Performed By: #### C MP #### [facility] [address] [place] [address] Dr. Dwight Waters EO # 0.2 103/ul Normal 0.0-0.7 [facility] Comment on above: Performed By: #### C MP #### [facility] [address] [place] [address] Dr. Dwight Waters Eosinophils/100 WBC (Bld) 2.6 % Normal 0.9-7.0 [facility] Comment on above: Performed By: #### C MP #### [facility] [address] [place] [address] Dr. Dwight Waters Erythrocyte distribution width (RBC) [Ratio] 13.1 % Normal 11.0-15.0 [facility] Comment on above: Performed By: #### C MP #### [facility] [address] [place] [address] Dr. Dwight Waters Hematocrit (Bld) [Volume fraction] 47.0 % Normal 42.0-54.0 [facility] Comment on above: Performed By: #### C MP #### [facility] [address] [place] [address] Dr. Dwight Waters Hemoglobin (Bld) [Mass/Vol] 15.3 g/dL Normal 14.0-18.0 [facility] Comment on above: Performed By: #### C MP #### [facility] [address] [place] [address] Dr. Dwight Waters IG # 0.01 10e3/ul Normal 0.00-0.03 [facility] Comment on above: Performed By: #### C MP #### [facility] [address] [place] [address] Dr. Dwight Waters IG % 0.1 % Normal 0.0-0.5 [facility] Comment on above: Performed By: #### C MP #### [facility] [address] [place] [address] Dr. Dwight Waters LYMPH # 2.3 103/ul Normal 1.2-3.8 [facility] Comment on above: Performed By: #### C MP #### [facility] [address] [place] [address] Dr. Dwight Waters Lymphocytes/100 WBC (Bld) 29.8 % Normal 20.5-60.0 [facility] Comment on above: Performed By: #### C MP #### [facility] [address] [place] [address] Dr. Dwight Waters MANUAL DIFF REQ NO Normal [facility] Comment on above: Performed By: #### C MP #### [facility] [address] [place] [address] Dr. Dwight Waters MCH (RBC) [Entitic mass] 28.2 pg Normal 25.9-34.0 [facility] Comment on above: Performed By: #### C MP #### [facility] [address] [place] [address] Dr. Dwight Waters MCHC (RBC) [Mass/Vol] 32.6 g/dL Normal 29.9-35.2 [facility] Comment on above: Performed By: #### C MP #### [facility] [address] [place] [address] Dr. Dwight Waters MCV (RBC) [Entitic vol] 86.7 fL Normal 80.0-94.0 [facility] Comment on above: Performed By: #### C MP #### [facility] [address] [place] [address] Dr. Dwight Waters MONO # 0.7 103/ul Normal 0.3-0.8 [facility] Comment on above: Performed By: #### C MP #### [facility] [address] [place] [address] Dr. Dwight Waters Monocytes/100 WBC (Bld) 8.5 % Normal 1.7-12.0 [facility] Comment on above: Performed By: #### C MP #### [facility] [address] [place] [address] Dr. Dwight Waters NEUT # 4.5 103/ul Normal 1.4-6.5 [facility] Comment on above: Performed By: #### C MP #### [facility] [address] [place] [address] Dr. Dwight Waters Neutrophils/100 WBC (Bld) 58.5 % Normal 43.0-75.0 [facility] Comment on above: Performed By: #### C MP #### [facility] [address] [place] [address] Dr. Dwight Waters Platelet mean volume (Bld) [Entitic vol] 9.7 fL Normal 9.5-13.5 [facility] Comment on above: Performed By: #### C MP #### [facility] [address] [place] [address] Dr. Dwight Waters PLT 266 103/ul Normal 150-450 [facility] Comment on above: Performed By: #### C MP #### [facility] [address] [place] [address] Dr. Dwight Waters RBC 5.42 106/ul Normal 4.70-6.10 [facility] Comment on above: Performed By: #### C MP #### [facility] [address] [place] [address] Dr. Dwight Waters WBC 7.6 103/ul Normal 4.0-11.0 [facility] Comment on above: Performed By: #### C MP #### [facility] [address] [place] [address] Dr. Dwight Waters CHLORIDEon 08-14-2022 Chloride [Moles/Vol] 104 mmol/L Normal 98-107 [facility] Comment on above: Performed By: #### C BC #### [facility] [address] [place] [address] Dr. Dwight Waters CO2on 08-14-2022 CO2 [Moles/Vol] 27.9 mmol/L Normal 21.0-32.0 [facility] Comment on above: Performed By: #### C BC #### [facility] [address] [place] [address] Dr. Dwight Waters CREATININEon 08-14-2022 Creatinine [Mass/Vol] 1.08 mg/dL Normal 0.70-1.30 [facility] Comment on above: Performed By: #### C BC #### [facility] [address] [place] [address] Dr. Dwight Waters EGFR-AF PUERTO RICAN >60 Normal >=60 [facility] Comment on above: Performed By: #### C BC #### [facility] [address] [place] [address] Dr. Dwight Waters EGFR-NON AF PUERTO RICAN >60 Normal >=60 [facility] Comment on above: Performed By: #### C BC #### [facility] [address] [place] [address] Dr. Dwight Waters GGTon 08-14-2022 Gamma glutamyl transferase [Catalytic activity/Vol] 24 U/L Normal 15-85 [facility] Comment on above: Performed By: #### F [id number] #### [facility] [address] [place] [address] Dr. Dwight Waters GLUCOSE BLOODon 08-14-2022 Glucose [Mass/Vol] 111 mg/dL Critically high 74-106 [facility] Comment on above: Performed By: #### C BC #### [facility] [address] [place] [address] Dr. Dwight Waters MAGNESIUMon 08-14-2022 Magnesium [Mass/Vol] 1.4 mg/dL Critically low 1.8-2.4 [facility] Comment on above: Performed By: #### C BC #### [facility] [address] [place] [address] Dr. Dwight Waters NAon 08-14-2022 Sodium [Moles/Vol] 140 mmol/L Normal 136-145 [facility] Comment on above: Performed By: #### F [id number] #### [facility] [address] [place] [address] Dr. Dwight Waters PHOSPHORUSon 08-14-2022 Phosphate [Mass/Vol] 3.1 mg/dL Normal 2.6-4.7 [facility] Comment on above: Performed By: #### C BC #### [facility] [address] [place] [address] Dr. Dwight Waters POTASSIUMon 08-14-2022 Potassium [Moles/Vol] 3.5 mmol/L Normal 3.5-5.1 [facility] Comment on above: Performed By: #### C BC #### [facility] [address] [place] [address] Dr. Dwight Waters SGOTon 08-14-2022 AST [Catalytic activity/Vol] 17 U/L Normal 15-37 [facility] Comment on above: Performed By: #### F [id number] #### [facility] [address] [place] [address] Dr. Dwight Waters SGPTon 08-14-2022 ALT [Catalytic activity/Vol] 22 U/L Normal 16-63 [facility] Comment on above: Performed By: #### F [id number] #### [facility] [address] [place] [address] Dr. Dwight Waters URINE T PROTEIN CREAT RATIOo n 08-14-2022 Protein (U) [Mass/Vol] 10.7 mg/dL Normal <=12.0 [facility] Comment on above: Performed By: #### F [id number] #### [facility] [address] [place] [address] Dr. Dwight Waters UR PROT CREAT RAT 0.10 Normal [facility] Comment on above: Performed By: #### F K506T #### [facility] [address] [place] [address] Dr. Dwight Waters URINE CREAT 104.28 mg/dL Normal 20.00-300.00 [facility] Comment on above: Performed By: #### F K506T #### [facility] [address] [place] [address] Dr. Dwight Waters NEPHROSTOMY TUBE REMOVALon 0 [...] Assisting physician present for entire procedure: yes [facility] Radiology Study observation (narrative) [facility] FK506 (TACROLIMUS) WHOLE BLO ODon 07-06-2022 Tacrolimus (FK506), Blood 9.5 ng/mL Normal 2.0-20.0 [facility] Comment on above: Result Comment: Trou gh (immediately following transplant) 15.0 . Trough (steady state, 2 weeks or more after transplant): 3.0 - 8.0 . Performed by LC-MS/MS technology. Performed By: #### C MP #### [facility] [address] [place] [address] Dr. Dwight Waters ALBUMINon 07-03-2022 Albumin [Mass/Vol] 3.7 g/dL Normal 3.4-5.0 [facility] Comment on above: Performed By: #### U RTPCR #### [facility] [address] [place] [address] Dr. Dwight Waters ALKALINE PHOSPHAon ALP [Catalytic activity/Vol] 76 U/L Normal 46-116 [facility] Comment on above: Performed By: #### U RTPCR #### [facility] [address] [place] [address] Dr. Dwight Waters BILIRUBIN CONJUGATED (DIRECT )on 07-03-2022 BILI, CONJUGATED 0.3 mg/dL Critically high 0.0-0.2 [facility] Comment on above: Performed By: #### C BC #### [facility] [address] [place] [address] Dr. Dwight Waters BILIRUBIN TOTALon 07-03-2022 Bilirubin [Mass/Vol] 1.4 mg/dL Critically high 0.2-1.0 [facility] Comment on above: Performed By: #### C BC #### [facility] [address] [place] [address] Dr. Dwight Waters BUNon 07-03-2022 Urea nitrogen [Mass/Vol] 15.0 mg/dL Normal 7.0-18.0 [facility] Comment on above: Performed By: #### C BC #### [facility] [address] [place] [address] Dr. Dwight Waters CALCIUMon 07-03-2022 Calcium [Mass/Vol] 9.4 mg/dL Normal 8.5-10.1 [facility] Comment on above: Performed By: #### U RTPCR #### [facility] [address] [place] [address] Dr. Dwight Waters CBC AUTO DIFFon 07-03-2022 BASO # 0.0 103/ul Normal 0.0-0.1 [facility] Comment on above: Performed By: #### U RTPCR #### [facility] [address] [place] [address] Dr. Dwight Waters Basophils/100 WBC (Bld) 0.6 % Normal 0.2-2.0 [facility] Comment on above: Performed By: #### U RTPCR #### [facility] [address] [place] [address] Dr. Dwight Waters EO # 0.2 103/ul Normal 0.0-0.7 [facility] Comment on above: Performed By: #### U RTPCR #### [facility] [address] [place] [address] Dr. Dwight Waters Eosinophils/100 WBC (Bld) 3.5 % Normal 0.9-7.0 [facility] Comment on above: Performed By: #### U RTPCR #### [facility] [address] [place] [address] Dr. Dwight Waters Erythrocyte distribution width (RBC) [Ratio] 12.9 % Normal 11.0-15.0 [facility] Comment on above: Performed By: #### U RTPCR #### [facility] [address] [place] [address] Dr. Dwight Waters Hematocrit (Bld) [Volume fraction] 44.2 % Normal 42.0-54.0 [facility] Comment on above: Performed By: #### U RTPCR #### [facility] [address] [place] [address] Dr. Dwight Waters Hemoglobin (Bld) [Mass/Vol] 14.6 g/dL Normal 14.0-18.0 [facility] Comment on above: Performed By: #### U RTPCR #### [facility] [address] [place] [address] Dr. Dwight Waters IG # 0.02 10e3/ul Normal 0.00-0.03 [facility] Comment on above: Performed By: #### U RTPCR #### [facility] [address] [place] [address] Dr. Dwight Waters IG % 0.3 % Normal 0.0-0.5 [facility] Comment on above: Performed By: #### U RTPCR #### [facility] [address] [place] [address] Dr. Dwigth Waters LYMPH # 2.0 103/ul Normal 1.2-3.8 [facility] Comment on above: Performed By: #### U RTPCR #### [facility] [address] [place] [address] Dr. Dwight Waters Lymphocytes/100 WBC (Bld) 28.4 % Normal 20.5-60.0 [facility] Comment on above: Performed By: #### U RTPCR #### [facility] [address] [place] [address] Dr. Dwight Waters MANUAL DIFF REQ NO Normal [facility] Comment on above: Performed By: #### U RTPCR #### [facility] [address] [place] [address] Dr. Dwight Waters MCH (RBC) [Entitic mass] 28.6 pg Normal 25.9-34.0 [facility] Comment on above: Performed By: #### U RTPCR #### [facility] [address] [address] [address] Dwight Waters MCHC (RBC) [Mass/Vol] 33.0 g/dL Normal 29.9-35.2 [facility] Comment on above: Performed By: #### U RTPCR #### [facility] [address] [address] [address] Dwight Waters MCV (RBC) [Entitic vol] 86.7 fL Normal 80.0-94.0 [facility] Comment on above: Performed By: #### U RTPCR #### [facility] [address] [place] [address] Dr. Dwight Waters MONO # 0.6 103/ul Normal 0.3-0.8 [facility] Comment on above: Performed By: #### U RTPCR #### [facility] [address] [place] [address] Dr. Dwight Waters Monocytes/100 WBC (Bld) 9.1 % Normal 1.7-12.0 [facility] Comment on above: Performed By: #### U RTPCR #### [facility] [address] [place] [address] Dr. Dwight Waters NEUT # 4.0 103/ul Normal 1.4-6.5 [facility] Comment on above: Performed By: #### U RTPCR #### [facility] [address] [place] [address] Dr. Dwight Waters Neutrophils/100 WBC (Bld) 58.1 % Normal 43.0-75.0 [facility] Comment on above: Performed By: #### U RTPCR #### [facility] [address] [place] [address] Dr. Dwight Waters Platelet mean volume (Bld) [Entitic vol] 9.5 fL Normal 9.5-13.5 [facility] Comment on above: Performed By: #### U RTPCR #### [facility] [address] [place] [address] Dr. Dwight Waters PLT 292 103/ul Normal 150-450 [facility] Comment on above: Performed By: #### U RTPCR #### [facility] [address] [place] [address] Dr. Dwight Waters RBC 5.10 106/ul Normal 4.70-6.10 [facility] Comment on above: Performed By: #### U RTPCR #### [facility] [address] [place] [address] Dr. Dwight Waters WBC 6.9 103/ul Normal 4.0-11.0 [facility] Comment on above: Performed By: #### U RTPCR #### [facility] [address] [place] [address] Dr. Dwight Waters CHLORIDEon 07-03-2022 Chloride [Moles/Vol] 108 mmol/L Critically high 98-107 [facility] Comment on above: Performed By: #### C BC #### [facility] [address] [place] [address] Dr. Dwight Waters CO2on 07-03-2022 CO2 [Moles/Vol] 25.2 mmol/L Normal 21.0-32.0 [facility] Comment on above: Performed By: #### C BC #### [facility] [address] [place] [address] Dr. Dwight Waters CREATININEon 07-03-2022 Creatinine [Mass/Vol] 1.03 mg/dL Normal 0.70-1.30 [facility] Comment on above: Performed By: #### U RTPCR #### [facility] [address] [place] [address] Dr. Dwight Waters EGFR-AF PUERTO RICAN >60 Normal >=60 [facility] Comment on above: Performed By: #### U RTPCR #### [facility] [address] [place] [address] Dr. Dwight Waters EGFR-NON AF PUERTO RICAN >60 Normal >=60 [facility] Comment on above: Performed By: #### U RTPCR #### [facility] [address] [place] [address] Dr. Dwight Waters GGTon 07-03-2022 Gamma glutamyl transferase [Catalytic activity/Vol] 31 U/L Normal 15-85 [facility] Comment on above: Performed By: #### U RTPCR #### [facility] [address] [place] [address] Dr. Dwight Waters GLUCOSE BLOODon 07-03-2022 Glucose [Mass/Vol] 119 mg/dL Critically high 74-106 [facility] Comment on above: Performed By: #### U RTPCR #### [facility] [address] [place] [address] Dr. Dwight Waters MAGNESIUMon 07-03-2022 Magnesium [Mass/Vol] 1.4 mg/dL Critically low 1.8-2.4 [facility] Comment on above: Performed By: #### C BC #### [facility] [address] [place] [address] Dr. Dwight Waters NAon 07-03-2022 Sodium [Moles/Vol] 142 mmol/L Normal 136-145 [facility] Comment on above: Performed By: #### C MP #### [facility] [address] [place] [address] Dr. Dwight Waters PHOSPHORUSon 07-03-2022 Phosphate [Mass/Vol] 3.4 mg/dL Normal 2.6-4.7 [facility] Comment on above: Performed By: #### C BC #### [facility] [address] [place] [address] Dr. Dwight Waters POTASSIUMon 07-03-2022 Potassium [Moles/Vol] 4.1 mmol/L Normal 3.5-5.1 [facility] Comment on above: Performed By: #### C BC #### [facility] [address] [place] [address] Dr. Dwight Waters SGOTon 07-03-2022 AST [Catalytic activity/Vol] 14 U/L Critically low 15-37 [facility] Comment on above: Performed By: #### C BC #### [facility] [address] [place] [address] Dr. Dwight Waters SGPTon 07-03-2022 ALT [Catalytic activity/Vol] 25 U/L Normal 16-63 [facility] Comment on above: Performed By: #### C #### [facility] [address] [address] [address] Dwight Waters US KIDNEYSon 07-03-2022 US KIDNEYS Ultrasound kidneys, bilateral HISTORY: Transplant of kidney , pain in the right lower quadrant COMPARISON: None. TECHNIQUE: Transabdominal ultrasound imaging of both kidneys was performed. FINDINGS: The [place] kidneys are diffusely echogenic and atrophic with cortical thinning. The right kidney measures 8.3 x 3.5 x 4.07 m and the left measures 9.9 x 3.8 x 3.6 cm. No hydronephrosis of the [place] kidneys. There is a renal transplant in [...] stone involving the renal transplant. 2. Atrophic [place] kidneys. 3. Normal bladder. Electronically authenticated by: ARCELIA PIZARRO Date: 2022-07-03 17:22 Normal [facility] CT Abdomen and Pelvis WO con traston 06-27-2022 IMPRESSION: 1. Both [place] kidneys are atrophic with improvement in right-sided [...] Adrenals: Adrenal glands are unremarkable. Kidneys: Both [place] kidneys are atrophic. Interval improvement in right [place] kidney hydronephrosis since May 15, 2022. Status [...] Adrenals: Adrenal glands are unremarkable. Kidneys: Both [place] kidneys are atrophic. Interval improvement in right [place] kidney hydronephrosis since May 15, 2022. Status [...] aggressive osseous lesions. IMPRESSION IMPRESSION: 1. Both [place] kidneys are atrophic with improvement in right-sided hydronephrosis since May 15, 2022. 2. 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 No hydronephrosis. No discrete perinephric collection. 3. Partially imaged postsurgical changes related to prior liver transplant. 4. The bladder is decompressed, limiting evaluation. [facility] Radiology Study observation (narrative) [facility] CT Abdomen and Pelvis WO con trastOrdered By: Gera Lu on 06-27-2022 [facility] Work Phone: CBC AUTO DIFFon 06-18-2022 BASO # 0.0 103/ul Normal 0.0-0.1 [facility] Comment on above: Performed By: #### U RTPCR #### [facility] [address] [place] [address] Dr. Dwight Waters Basophils/100 WBC (Bld) 0.5 % Normal 0.2-2.0 [facility] Comment on above: Performed By: #### U RTPCR #### [facility] [address] [place] [address] Dr. Dwight Waters EO # 0.2 103/ul Normal 0.0-0.7 [facility] Comment on above: Performed By: #### U RTPCR #### [facility] [address] [place] [address] Dr. Dwight Waters Eosinophils/100 WBC (Bld) 2.3 % Normal 0.9-7.0 [facility] Comment on above: Performed By: #### U RTPCR #### [facility] [address] [place] [address] Dr. Dwight Waters Erythrocyte distribution width (RBC) [Ratio] 12.9 % Normal 11.0-15.0 [facility] Comment on above: Performed By: #### U RTPCR #### [facility] [address] [place] [address] Dr. Dwight Waters Hematocrit (Bld) [Volume fraction] 41.2 % Critically low 42.0-54.0 [facility] Comment on above: Performed By: #### U RTPCR #### [facility] [address] [place] [address] Dr. Dwight Waters Hemoglobin (Bld) [Mass/Vol] 13.3 g/dL Critically low 14.0-18.0 [facility] Comment on above: Performed By: #### U RTPCR #### [facility] [address] [place] [address] Dr. Dwight Waters IG # 0.04 10e3/ul Critically high 0.00-0.03 [facility] Comment on above: Performed By: #### U RTPCR #### [facility] [address] [place] [address] Dr. Dwight Waters IG % 0.5 % Normal 0.0-0.5 [facility] Comment on above: Performed By: #### U RTPCR #### [facility] [address] [place] [address] Dr. Dwight Waters LYMPH # 2.0 103/ul Normal 1.2-3.8 [facility] Comment on above: Performed By: #### U RTPCR #### [facility] [address] [place] [address] Dr. Dwight Waters Lymphocytes/100 WBC (Bld) 22.9 % Normal 20.5-60.0 [facility] Comment on above: Performed By: #### U RTPCR #### [facility] [address] [place] [address] Dr. Dwight Waters MANUAL DIFF REQ NO Normal [facility] Comment on above: Performed By: #### U RTPCR #### [facility] [address] [place] [address] Dr. Dwight Waters MCH (RBC) [Entitic mass] 28.7 pg Normal 25.9-34.0 [facility] Comment on above: Performed By: #### U RTPCR #### [facility] [address] [place] [address] Dr. Dwight Waters MCHC (RBC) [Mass/Vol] 32.3 g/dL Normal 29.9-35.2 [facility] Comment on above: Performed By: #### U RTPCR #### [facility] [address] [place] [address] Dr. Dwight Waters MCV (RBC) [Entitic vol] 88.8 fL Normal 80.0-94.0 [facility] Comment on above: Performed By: #### U RTPCR #### [facility] [address] [place] [address] Dr. Dwight Waters MONO # 0.8 103/ul Normal 0.3-0.8 [facility] Comment on above: Performed By: #### U RTPCR #### [facility] [address] [place] [address] Dr. Dwight Waters Monocytes/100 WBC (Bld) 9.7 % Normal 1.7-12.0 [facility] Comment on above: Performed By: #### U RTPCR #### [facility] [address] [place] [address] Dr. Dwight Waters NEUT # 5.6 103/ul Normal 1.4-6.5 [facility] Comment on above: Performed By: #### U RTPCR #### [facility] [address] [place] [address] Dr. Dwight Waters Neutrophils/100 WBC (Bld) 64.1 % Normal 43.0-75.0 [facility] Comment on above: Performed By: #### U RTPCR #### [facility] [address] [place] [address] Dr. Dwight Waters Platelet mean volume (Bld) [Entitic vol] 10.0 fL Normal 9.5-13.5 [facility] Comment on above: Performed By: #### U RTPCR #### [facility] [address] [place] [address] Dr. Dwight Waters PLT 270 103/ul Normal 150-450 [facility] Comment on above: Performed By: #### U RTPCR #### [facility] [address] [place] [address] Dr. Dwight Waters RBC 4.64 106/ul Critically low 4.70-6.10 [facility] Comment on above: Performed By: #### U RTPCR #### [facility] [address] [place] [address] Dr. Dwight Waters WBC 8.7 103/ul Normal 4.0-11.0 [facility] Comment on above: Performed By: #### U RTPCR #### [facility] [address] [place] [address] Dr. Dwight Waters CULTURE URINEon 06-18-2022 CULTURE URINE Culture Observations : NO GROWTH. Normal [facility] Comment on above: Performed By: #### U RTPCR #### [facility] [address] [place] [address] Dr. Dwight Waters [facility] SARS-CoV-2 (COVID-19) RNA ESTELITA+probe Ql (Unsp spec) Not detected Normal NOT DETECTED [facility] Comment on above: Result Comment: When diagnostic [...] for this test is supported by the [employer] Officer of Health and Human Service's declaration that [...] used). Performed By: #### C BC #### [facility] [address] [place] [address] Dr. Dwight Waters ER URINE PROFILEon 2 Bilirubin Ql (U) Negative Normal NEGATIVE [facility] Comment on above: Performed By: #### U RTPCR #### [facility] [address] [place] [address] Dr. Dwight Waters Clarity (U) CLEAR Normal CLEAR [facility] Comment on above: Performed By: #### U RTPCR #### [facility] [address] [place] [address] Dr. Dwight Waters Color (U) YELLOW Normal YELLOW [facility] Comment on above: Performed By: #### U RTPCR #### [facility] [address] [place] [address] Dr. Dwight SHARMA A micrscopic examination will be performed if indicated. Normal [facility] Comment on above: Performed By: #### U RTPCR #### [facility] [address] [place] [address] Dr. Dwight Waters Glucose Ql (U) Negative Normal NEGATIVE [facility] Comment on above: Performed By: #### U RTPCR #### [facility] [address] [place] [address] Dr. Dwight Waters Hemoglobin Ql (U) LARGE Abnormal NEGATIVE [facility] Comment on above: Performed By: #### U RTPCR #### [facility] [address] [place] [address] Dr. Dwight Waters Ketones Ql (U) Negative Normal NEGATIVE [facility] Comment on above: Performed By: #### U RTPCR #### [facility] [address] [place] [address] Dr. Dwight Waters LEUKOCYTES TRACE Abnormal NEGATIVE [facility] Comment on above: Performed By: #### U RTPCR #### [facility] [address] [place] [address] Dr. Dwight Waters Nitrite Ql (U) Negative Normal NEGATIVE [facility] Comment on above: Performed By: #### U RTPCR #### [facility] [address] [place] [address] Dr. Dwight Waters pH (U) 6.0 [pH] Normal 5-9 [facility] Comment on above: Performed By: #### U RTPCR #### [facility] [address] [place] [address] Dr. Dwight Waters Protein (U) [Mass/Vol] 30 mg/dL Abnormal NEGATIVE/ TRACE [facility] Comment on above: Performed By: #### U RTPCR #### [facility] [address] [place] [address] Dr. Dwight Waters SPEC GRAVITY >=1.030 Abnormal 1.005-<=1.025 [facility] Comment on above: Performed By: #### U RTPCR #### [facility] [address] [place] [address] Dr. Dwight Waters UR MICRO IND INDICATED Normal [facility] Comment on above: Performed By: #### U RTPCR #### [facility] [address] [place] [address] Dr. Dwight Waters Urobilinogen Qn (U) 0.2 {Alyssa'U}/dL Normal 0.2 - 1. 0 [facility] Comment on above: Performed By: #### U RTPCR #### [facility] [address] [place] [address] Dr. Dwight Waters PROF 14(COMP METB)on 022 Albumin [Mass/Vol] 3.7 g/dL Normal 3.4-5.0 [facility] Comment on above: Performed By: #### C MP #### [facility] [address] [place] [address] Dr. Dwight Waters Albumin/Globulin [Mass ratio] 0.9 {ratio} Normal [facility] Comment on above: Performed By: #### C MP #### [facility] [address] [place] [address] Dr. Dwight Waters ALP [Catalytic activity/Vol] 80 U/L Normal 46-116 [facility] Comment on above: Performed By: #### C MP #### [facility] [address] [place] [address] Dr. Dwight Waters ALT [Catalytic activity/Vol] 24 U/L Normal 16-63 [facility] Comment on above: Performed By: #### C MP #### [facility] [address] [place] [address] Dr. Dwight Waters Anion gap [Moles/Vol] 12.9 mmol/L Normal [facility] Comment on above: Performed By: #### C MP #### [facility] [address] [place] [address] Dr. Dwight Waters AST [Catalytic activity/Vol] 17 U/L Normal 15-37 [facility] Comment on above: Performed By: #### C MP #### [facility] [address] [place] [address] Dr. Dwight Waters Bilirubin [Mass/Vol] 0.8 mg/dL Normal 0.2-1.0 [facility] Comment on above: Performed By: #### C MP #### [facility] [address] [place] [address] Dr. Dwight Waters Calcium [Mass/Vol] 9.4 mg/dL Normal 8.5-10.1 [facility] Comment on above: Performed By: #### C MP #### [facility] [address] [place] [address] Dr. Dwight Waters Chloride [Moles/Vol] 106 mmol/L Normal 98-107 [facility] Comment on above: Performed By: #### C MP #### [facility] [address] [place] [address] Dr. Dwight Waters CO2 [Moles/Vol] 25.3 mmol/L Normal 21.0-32.0 [facility] Comment on above: Performed By: #### C MP #### [facility] [address] [address] [address] Dwight Waters Creatinine [Mass/Vol] 1.29 mg/dL Normal 0.70-1.30 [facility] Comment on above: Performed By: #### C MP #### [facility] [address] [address] [address] Dwight Waters EGFR-AF PUERTO RICAN >60 Normal >=60 [facility] Comment on above: Performed By: #### C MP #### [facility] [address] [address] [address] Dwight Waters EGFR-NON AF PUERTO RICAN 59 mL/min/1.73m2 Critically low >=60 [facility] Comment on above: Performed By: #### C MP #### [facility] [address] [address] [address] Dwight Waters Globulin (S) [Mass/Vol] 4.2 g/dL Normal [facility] Comment on above: Performed By: #### C MP #### [facility] [address] [address] [address] Dwight Waters Glucose [Mass/Vol] 106 mg/dL Normal 74-106 [facility] Comment on above: Performed By: #### C MP #### [facility] [address] [address] [address] Dwight Waters Potassium [Moles/Vol] 4.2 mmol/L Normal 3.5-5.1 [facility] Comment on above: Performed By: #### C MP #### [facility] [address] [address] [address] Dwight Waters Protein [Mass/Vol] 7.9 g/dL Normal 6.4-8.2 [facility] Comment on above: Performed By: #### C MP #### [facility] [address] [address] [address] Dwight Waters Sodium [Moles/Vol] 140 mmol/L Normal 136-145 [facility] Comment on above: Performed By: #### C MP #### [facility] [address] [place] [address] Dr. Dwight Waters Urea nitrogen [Mass/Vol] 22.0 mg/dL Critically high 7.0-18.0 [facility] Comment on above: Performed By: #### C MP #### [facility] [address] [place] [address] Dr. Dwight Waters Urea nitrogen/Creatinine [Mass ratio] 17.1 mg/mg Normal [facility] Comment on above: Performed By: #### C MP #### [facility] [address] [place] [address] Dr. Dwight Waters URINE MICROSCOPIC ONLYon BACTERIA TRACE Abnormal NONE SEEN [facility] Comment on above: Performed By: #### U RTPCR #### [facility] [address] [place] [address] Dr. Dwight Waters Bacteria identified Cx Nom (U) INDICATED Normal [facility] Comment on above: Performed By: #### U RTPCR #### [facility] [address] [place] [address] Dr. Dwight Waters CAST NONE SEEN Normal NONE SEEN [facility] Comment on above: Performed By: #### U RTPCR #### [facility] [address] [place] [address] Dr. Dwight Waters Crystals LM Nom (Urine sed) NONE SEEN Normal NONE SEEN [facility] Comment on above: Performed By: #### U RTPCR #### [facility] [address] [place] [address] Dr. Dwight Waters Epithelial cells LM Ql (Urine sed) NONE SEEN Normal NONE SEEN /RARE [facility] Comment on above: Performed By: #### U RTPCR #### [facility] [address] [place] [address] Dr. Dwight Waters MUCOUS NONE SEEN Normal NONE SEEN [facility] Comment on above: Performed By: #### U RTPCR #### [facility] [address] [place] [address] Dr. Dwight Waters RBC 5-10 Abnormal 0-2 [facility] Comment on above: Performed By: #### U RTPCR #### [facility] [address] [place], [place] [address] Dr. Dwight Waters WBC 10-20 Abnormal NONE SEEN [facility] Comment on above: Performed By: #### U RTPCR #### [facility] [address] [place], [place] [address] Dr. Dwight Waters ALLOSCREEN RECIPIENT (POST T X PRA)on 06-13-2022 AB SPECIFICITY CLASS COMMENT Antibody Specificity testing performed by [employer]. cPRA calculation based on identification of HLA antibody specificities at MFI >2000 and/or presence of CREG antibodies. [facility] Comment on above: Some of the reagents used for testing in the Clinical Histocompatibility Laboratory have yet to be approved by the FDA. Our certification by CLIA to perform high complexity tests allows us to use these reagents in the context of a stringent QC program, and obviates the need for FDA approval.Testing performed by the [facility] Clinical Histocompatibility Laboratory. [facility] number: [id number]. CLIA number: [id number], Director: Carlito Merchant, PhD, D([facility]). ANTIBODY SPECIFICITY INTERPRETATION Detected [facility] CLASS I SPECIFICITIES Not detected [facility] CLASS II SPECIFICITIES Not detected [facility] HLA Ab (S) 0 % 0 [facility] EXTRA MICROon 06-13-2022 [facility] URINE CULTUREOrdered By: Jah Upton on 06-13-2022 Bacteria identified Cx Nom (Unsp spec) Growth [facility] Bacteria identified Cx Nom (Unsp spec) 10,000-50,000 CFU/mL Mixed skin shimon [facility] Comment on above: Multiple bacterial m orphotypes present. Suggest appropriate recollection if clinically indicated. [facility] CBC,PLATELETSon 06-12-2022 Erythrocyte distribution width (RBC) [Ratio] 13.0 % 10.9 - 14.3 % [facility] Hematocrit (Bld) [Volume fraction] 43.2 % 39.6 - 48.8 % [facility] Hemoglobin (Bld) [Mass/Vol] 13.9 g/dL 13.4 - 16.8 g/dL [facility] Interpretation and review of laboratory results Normal [facility] MCH (RBC) [Entitic mass] 28.7 pg 26.1 - 33.3 pg [facility] MCHC (RBC) [Mass/Vol] 32.2 g/dL 31.9 - 36.5 g/dL [facility] MCV (RBC) [Entitic vol] 89.1 fL 79.0 - 94.5 fL [facility] Platelet mean volume (Bld) [Entitic vol] 10.5 fL 8.7 - 12.3 fL [facility] Platelets (Bld) [#/Vol] 269 10*3/uL 146 - 337 K/uL [facility] RBC (Bld) [#/Vol] 4.85 10*6/uL [facility] WBC (Bld) [#/Vol] 7.68 10*3/uL 3.73 - 10. 10 K/uL [facility] CHEM 7 (LYTES,BUN,CREA,GLUC) on 06-12-2022 Anion gap [Moles/Vol] 14 mmol/L 7 - 17 mmol/L [facility] Chloride [Moles/Vol] 106 mmol/L 98 - 10 8 mmol/L [facility] CO2 [Moles/Vol] 25 mmol/L 21 - 31 mmol/L [facility] Creatinine [Mass/Vol] 1.26 mg/dL 0.70 - 1.30 mg/dL [facility] GFR/1.73 sq M.predicted CKD-EPI (S/P/Bld) [Vol rate/Area] 69 >=60 mL/min/1.73m2 [facility] Comment on above: Reported eGFR is bas ed on the CKD-EPI 2020 equation using creatinine, age, and sex. Glucose [Mass/Vol] 83 mg/dL 70 - 99 mg/dL [facility] Osmolality Calc [Osmolality] 295 [facility] Potassium [Moles/Vol] 3.8 mmol/L 3.5 - 5.0 mmol/L [facility] Sodium [Moles/Vol] 141 mmol/L 135 - 145 mmol/L [facility] Urea nitrogen [Mass/Vol] 18 mg/dL 7 - 25 mg/dL [facility] Urea nitrogen/Creatinine [Mass ratio] 14 mg/mg [facility] GGTon 06-12-2022 Gamma glutamyl transferase [Catalytic activity/Vol] 20 U/L 8 - 64 U/L [facility] HEMOGLOBIN [id number] By: Link [employer] on 06-12-2022 Average glucose Estimated from glycated hemoglobin (Bld) [Mass/Vol] 126 mg/dL [facility] HbA1c (Bld) [Mass fraction] 6.0 % High 4.7 - 5.6 % [facility] Interpretation and review of laboratory results Abnormal [facility] HEPATIC FUNCTION PANELon Albumin [Mass/Vol] 4.3 g/dL 3.5 - 5.0 g/dL [facility] ALP [Catalytic activity/Vol] 78 U/L 32 - 126 U/L [facility] ALT [Catalytic activity/Vol] 12 U/L 10 - 52 U/L [facility] AST [Catalytic activity/Vol] 16 U/L 10 - 39 U/L [facility] Bilirubin [Mass/Vol] 1.0 mg/dL <1.5 [facility] Bilirubin.direct [Mass/Vol] 0.2 mg/dL <0.3 [facility] Protein [Mass/Vol] 7.5 g/dL 6.4 - 8.3 g/dL [facility] No Panel Informationon 06-12 Interpretation and review of laboratory results Normal [facility] PTH INTACTOrdered By: Marli Lizarraga on 06-12-2022 Interpretation and review of laboratory results Abnormal [facility] Parathyrin.intact [Mass/Vol] 79.7 pg/mL High 14.0 - 72.0 pg/mL [facility] URINALYSIS REFLEX TO CULTURE PERFORMABLEon 06-12-2022 Appearance (U) Clear Clear [facility] Bacteria LM Ql (Urine sed) ABSENT ABSENT [facility] Color (U) Yellow Yellow [facility] Epithelial cells.squamous LM Ql (Urine sed) 1/hpf = 1+ 1/hpf = 1+, 2-5/hpf = 2+, 0/hpf = 0+, ABSENT [facility] Glucose Test strip (U) [Mass/Vol] Negative Negative [facility] Interpretation and review of laboratory results Abnormal [facility] Ketones (U) [Mass/Vol] Trace Abnormal Negative [facility] Leukocyte esterase Test strip Ql (U) Small Abnormal Negative [facility] Nitrite Ql (U) Negative Negative [facility] pH (U) 5.5 [pH] 5.0 - 7.0 [facility] Protein (U) [Mass/Vol] 30 mg/dL Abnormal Negative [facility] RBC (U) [#/Vol] Trace Abnormal Negative [facility] RBC LM.HPF (Urine sed) [#/Area] 0-2 0 - 2 /HPF [facility] Specific gravity (U) [Rel density] 1.026 [facility] Urobilinogen (U) [Mass/Vol] 0.2 E.U./dL 0.2 E.U/dL, 1.0 E.U/dL [facility] WBC LM.HPF (Urine sed) [#/Area] 10-20 Abnormal 0 - 5 /HPF [facility] URINE PROTEIN/CREA RATIO, RA NDOMon 06-12-2022 Creatinine (24H U) [Mass/Vol] 231.68 mg/dL [facility] Protein Unsp time (U) [Mass/Vol] 49 mg/dL [facility] Protein/Creatinine (U) [Mass ratio] 0.211 [facility] ([facility]) WHOLE BLO ODon 06-09-2022 Tacrolimus (FK506), Blood 9.8 ng/mL Normal 2.0-20.0 [facility] Comment on above: Result Comment: Trou gh (immediately following transplant) 15.0 . Trough (steady state, 2 weeks or more after transplant): 3.0 - 8.0 . Performed by LC-MS/MS technology. Performed By: #### U RTPCR #### [facility] [address] [place] [address] Dr. Dwight Waters ALBUMINon 06-06-2022 Albumin [Mass/Vol] 3.8 g/dL Normal 3.4-5.0 [facility] Comment on above: Performed By: #### C MP #### [facility] [address] [place] [address] Dr. Dwight Waters ALKALINE PHOSPHAon ALP [Catalytic activity/Vol] 82 U/L Normal 46-116 [facility] Comment on above: Performed By: #### C MP #### [facility] [address] [place] [address] Dr. Dwight Waters BILIRUBIN CONJUGATED (DIRECT )on 06-06-2022 BILI, CONJUGATED 0.2 mg/dL Normal 0.0-0.2 [facility] Comment on above: Performed By: #### C BC #### [facility] [address] [place] [address] Dr. Dwight Waters BILIRUBIN TOTALon 06-06-2022 Bilirubin [Mass/Vol] 1.0 mg/dL Normal 0.2-1.0 [facility] Comment on above: Performed By: #### C BC #### [facility] [address] [place] [address] Dr. Dwight Waters BUNon 06-06-2022 Urea nitrogen [Mass/Vol] 18.0 mg/dL Normal 7.0-18.0 [facility] Comment on above: Performed By: #### C BC #### [facility] [address] [place] [address] Dr. Dwight Waters CALCIUMon 06-06-2022 Calcium [Mass/Vol] 9.4 mg/dL Normal 8.5-10.1 [facility] Comment on above: Performed By: #### C MP #### [facility] [address] [place] [address] Dr. Dwight Waters CBC AUTO DIFFon 06-06-2022 BASO # 0.1 103/ul Normal 0.0-0.1 [facility] Comment on above: Performed By: #### U RTPCR #### [facility] [address] [place] [address] Dr. Dwight Waters Basophils/100 WBC (Bld) 0.8 % Normal 0.2-2.0 [facility] Comment on above: Performed By: #### U RTPCR #### [facility] [address] [place] [address] Dr. Dwight Waters EO # 0.3 103/ul Normal 0.0-0.7 [facility] Comment on above: Performed By: #### U RTPCR #### [facility] [address] [place] [address] Dr. Dwight Waters Eosinophils/100 WBC (Bld) 3.3 % Normal 0.9-7.0 [facility] Comment on above: Performed By: #### U RTPCR #### [facility] [address] [place] [address] Dr. Dwight Waters Erythrocyte distribution width (RBC) [Ratio] 12.4 % Normal 11.0-15.0 [facility] Comment on above: Performed By: #### U RTPCR #### [facility] [address] [place] [address] Dr. Dwight Waters Hematocrit (Bld) [Volume fraction] 45.1 % Normal 42.0-54.0 [facility] Comment on above: Performed By: #### U RTPCR #### [facility] [address] [place] [address] Dr. Dwight Waters Hemoglobin (Bld) [Mass/Vol] 14.4 g/dL Normal 14.0-18.0 [facility] Comment on above: Performed By: #### U RTPCR #### [facility] [address] [place] [address] Dr. Dwight Waters IG # 0.01 10e3/ul Normal 0.00-0.03 [facility] Comment on above: Performed By: #### U RTPCR #### [facility] [address] [place] [address] Dr. Dwight Waters IG % 0.1 % Normal 0.0-0.5 [facility] Comment on above: Performed By: #### U RTPCR #### [facility] [address] [place] [address] Dr. Dwight Waters LYMPH # 2.2 103/ul Normal 1.2-3.8 [facility] Comment on above: Performed By: #### U RTPCR #### [facility] [address] [place] [address] Dr. Dwight Waters Lymphocytes/100 WBC (Bld) 30.0 % Normal 20.5-60.0 [facility] Comment on above: Performed By: #### U RTPCR #### [facility] [address] [place] [address] Dr. Dwight Waters MANUAL DIFF REQ NO Normal [facility] Comment on above: Performed By: #### U RTPCR #### [facility] [address] [place] [address] Dr. Dwight Waters MCH (RBC) [Entitic mass] 28.2 pg Normal 25.9-34.0 [facility] Comment on above: Performed By: #### U RTPCR #### [facility] [address] [place] [address] Dr. Dwight Waters MCHC (RBC) [Mass/Vol] 31.9 g/dL Normal 29.9-35.2 [facility] Comment on above: Performed By: #### U RTPCR #### [facility] [address] [place] [address] Dr. Dwight Waters MCV (RBC) [Entitic vol] 88.3 fL Normal 80.0-94.0 [facility] Comment on above: Performed By: #### U RTPCR #### [facility] [address] [place] [address] Dr. Dwight Waters MONO # 0.6 103/ul Normal 0.3-0.8 [facility] Comment on above: Performed By: #### U RTPCR #### [facility] [address] [place] [address] Dr. Dwight Waters Monocytes/100 WBC (Bld) 8.2 % Normal 1.7-12.0 [facility] Comment on above: Performed By: #### U RTPCR #### [facility] [address] [place] [address] Dr. Dwight Waters NEUT # 4.3 103/ul Normal 1.4-6.5 [facility] Comment on above: Performed By: #### U RTPCR #### [facility] [address] [place] [address] Dr. Dwight Waters Neutrophils/100 WBC (Bld) 57.6 % Normal 43.0-75.0 [facility] Comment on above: Performed By: #### U RTPCR #### [facility] [address] [place] [address] Dr. Dwight Waters Platelet mean volume (Bld) [Entitic vol] 9.7 fL Normal 9.5-13.5 [facility] Comment on above: Performed By: #### U RTPCR #### [facility] [address] [place] [address] Dr. Dwight Waters PLT 297 103/ul Normal 150-450 [facility] Comment on above: Performed By: #### U RTPCR #### [facility] [address] [place] [address] Dr. Dwight Waters RBC 5.11 106/ul Normal 4.70-6.10 [facility] Comment on above: Performed By: #### U RTPCR #### [facility] [address] [place] [address] Dr. Dwight Waters WBC 7.5 103/ul Normal 4.0-11.0 [facility] Comment on above: Performed By: #### U RTPCR #### [facility] [address] [place] [address] Dr. Dwight Waters CHLORIDEon 06-06-2022 Chloride [Moles/Vol] 107 mmol/L Normal 98-107 [facility] Comment on above: Performed By: #### C BC #### [facility] [address] [address] [address] Dwight Waters CO2on 06-06-2022 CO2 [Moles/Vol] 27.4 mmol/L Normal 21.0-32.0 [facility] Comment on above: Performed By: #### C BC #### [facility] [address] [address] [address] Dwight Waters CREATININEon 06-06-2022 Creatinine [Mass/Vol] 1.20 mg/dL Normal 0.70-1.30 [facility] Comment on above: Performed By: #### C BC #### [facility] [address] [address] [address] Dwight Waters EGFR-AF PUERTO RICAN >60 Normal >=60 [facility] Comment on above: Performed By: #### C BC #### [facility] [address] [place] [address] Dr. Dwight Waters EGFR-NON AF PUERTO RICAN >60 Normal >=60 [facility] Comment on above: Performed By: #### C BC #### [facility] [address] [place] [address] Dr. Dwight Waters GGTon 06-06-2022 Gamma glutamyl transferase [Catalytic activity/Vol] 29 U/L Normal 15-85 [facility] Comment on above: Performed By: #### C BC #### [facility] [address] [place] [address] Dr. Dwight Waters GLUCOSE BLOODon 06-06-2022 Glucose [Mass/Vol] 112 mg/dL Critically high 74-106 [facility] Comment on above: Performed By: #### C BC #### [facility] [address] [place] [address] Dr. Dwight Waters MAGNESIUMon 06-06-2022 Magnesium [Mass/Vol] 1.3 mg/dL Critically low 1.8-2.4 [facility] Comment on above: Performed By: #### C MP #### [facility] [address] [place] [address] Dr. Dwight Waters NAon 06-06-2022 Sodium [Moles/Vol] 141 mmol/L Normal 136-145 [facility] Comment on above: Performed By: #### C MP #### [facility] [address] [place] [address] Dr. Dwight Waters PHOSPHORUSon 06-06-2022 Phosphate [Mass/Vol] 3.1 mg/dL Normal 2.6-4.7 [facility] Comment on above: Performed By: #### C MP #### [facility] [address] [place] [address] Dr. Dwight Waters POTASSIUMon 06-06-2022 Potassium [Moles/Vol] 4.3 mmol/L Normal 3.5-5.1 [facility] Comment on above: Performed By: #### C BC #### [facility] [address] [place] [address] Dr. Dwight Waters SGOTon 06-06-2022 AST [Catalytic activity/Vol] 16 U/L Normal 15-37 [facility] Comment on above: Performed By: #### C BC #### [facility] [address] [place] [address] Dr. Dwight Waters SGPTon 06-06-2022 ALT [Catalytic activity/Vol] 50 U/L Normal 16-63 [facility] Comment on above: Performed By: #### C BC #### [facility] [address] [place] [address] Dr. Dwight Waters Bacteria identified Cx Nom ( Bld)on 05-21-2022 Bacteria identified Cx Nom (Unsp spec) NO GROWTH DAY 5 OF 5 [facility] Results may be compromised due to volume of BACT\ALERT bottle exceeding 10mLs . The optimal blood volume is 8-10 mls per aerobic/anaerobic blood culture bottle. [facility] CALCIUMon 05-20-2022 Calcium [Mass/Vol] 9.1 mg/dL 8.6 - 10. 5 mg/dL [facility] CBC,PLATELETSon 05-20-2022 Erythrocyte distribution width (RBC) [Ratio] 12.5 % 10.9 - 14.3 % [facility] Hematocrit (Bld) [Volume fraction] 37.1 % Low 39.6 - 48.8 % [facility] Hemoglobin (Bld) [Mass/Vol] 12.3 g/dL Low 13.4 - 16.8 g/dL [facility] Interpretation and review of laboratory results Abnormal [facility] MCH (RBC) [Entitic mass] 28.9 pg 26.1 - 33.3 pg [facility] MCHC (RBC) [Mass/Vol] 33.2 g/dL 31.9 - 36.5 g/dL [facility] MCV (RBC) [Entitic vol] 87.3 fL 79.0 - 94.5 fL [facility] Platelet mean volume (Bld) [Entitic vol] 9.9 fL 8.7 - 12.3 fL [facility] Platelets (Bld) [#/Vol] 234 10*3/uL 146 - 337 K/uL [facility] RBC (Bld) [#/Vol] 4.25 10*6/uL Low [facility] WBC (Bld) [#/Vol] 6.31 10*3/uL 3.73 - 10. 10 K/uL [facility] CHEM 7 (LYTES,BUN,CREA,GLUC) on 05-20-2022 Anion gap [Moles/Vol] 15 mmol/L 7 - 17 mmol/L [facility] Chloride [Moles/Vol] 111 mmol/L High 98 - 10 8 mmol/L [facility] CO2 [Moles/Vol] 22 mmol/L 21 - 31 mmol/L [facility] Creatinine [Mass/Vol] 1.10 mg/dL 0.70 - 1.30 mg/dL [facility] GFR/1.73 sq M.predicted CKD-EPI (S/P/Bld) [Vol rate/Area] 81 >=60 mL/min/1.73m2 [facility] Comment on above: Reported eGFR is bas ed on the CKD-EPI 2020 equation using creatinine, age, and sex. Glucose [Mass/Vol] 92 mg/dL 70 - 99 mg/dL [facility] Interpretation and review of laboratory results Abnormal [facility] Osmolality Calc [O[facility]olality] [facility] Potassium [Moles/Vol] 4.4 mmol/L 3.5 - 5.0 mmol/L [facility] Sodium [Moles/Vol] 144 mmol/L 135 - 145 mmol/L [facility] Urea nitrogen [Mass/Vol] 18 mg/dL 7 - 25 mg/dL [facility] Urea nitrogen/Creatinine [Mass ratio] 16 mg/mg [facility] MAGNESIUMon 05-20-2022 Interpretation and review of laboratory results Abnormal [facility] Magnesium [Mass/Vol] 1.5 mg/dL Low 1.6 - 2 .6 mg/dL [facility] No Panel Informationon 05-20 Interpretation and review of laboratory results Normal [facility] PHOSPHATE, INORGANICon 05-20 Phosphate [Mass/Vol] 3.3 mg/dL 2.2 - 4 .6 mg/dL [facility] RF Unspecified body region V iews [...] projections of kidneys, ureters, and bladder. FINDINGS: Road Equipment Operator images: Road Equipment Operator radiographs of the abdomen reveal a [...] Contrast refluxes up the ureter to the [place] right kidney that is grossly normal appearing. [...] projections of kidneys, ureters, and bladder. FINDINGS: Road Equipment Operator images: Road Equipment Operator radiographs of the abdomen reveal a [...] Contrast refluxes up the ureter to the [place] right kidney that is grossly normal appearing. [...] I have reviewed and approved this report. [facility] Radiology Study observation (narrative) [facility] RF Unspecified body region V iews during surgeryOrdered By: Lizz Campos on 05-20-2022 [facility] Work Phone: CALCIUMon 05-19-2022 Calcium [Mass/Vol] 9.2 mg/dL 8.6 - 10. 5 mg/dL [facility] Calcium [Mass/Vol] 8.6 mg/dL 8.6 - 10. 5 mg/dL [facility] CBC,PLATELETSon 05-19-2022 Erythrocyte distribution width (RBC) [Ratio] 12.4 % 10.9 - 14.3 % [facility] Hematocrit (Bld) [Volume fraction] 38.0 % Low 39.6 - 48.8 % [facility] Hemoglobin (Bld) [Mass/Vol] 12.0 g/dL Low 13.4 - 16.8 g/dL [facility] Interpretation and review of laboratory results Abnormal [facility] MCH (RBC) [Entitic mass] 28.6 pg 26.1 - 33.3 pg [facility] MCHC (RBC) [Mass/Vol] 31.6 g/dL Low 31.9 - 36.5 g/dL [facility] MCV (RBC) [Entitic vol] 90.5 fL 79.0 - 94.5 fL [facility] Platelet mean volume (Bld) [Entitic vol] 9.7 fL 8.7 - 12.3 fL [facility] Platelets (Bld) [#/Vol] 199 10*3/uL 146 - 337 K/uL [facility] RBC (Bld) [#/Vol] 4.20 10*6/uL [facility] (Bld[facility] [#/Vol] 6.81 10*3/uL 3.73 - 10. 10 K/uL [facility] CHEM 7 (LYTES,BUN,CREA,GLUC) on 05-19-2022 Anion gap [Moles/Vol] 13 mmol/L 7 - 17 mmol/L [facility] Chloride [Moles/Vol] 105 mmol/L 98 - 10 8 mmol/L [facility] CO2 [Moles/Vol] 30 mmol/L 21 - 31 mmol/L [facility] Creatinine [Mass/Vol] 1.39 mg/dL High 0.70 - 1.30 mg/dL [facility] GFR/1.73 sq M.predicted CKD-EPI (S/P/Bld) [Vol rate/Area] 61 >=60 mL/min/1.73m2 [facility] Comment on above: Reported eGFR is bas ed on the CKD-EPI 2020 equation using creatinine, age, and sex. Glucose [Mass/Vol] 121 mg/dL High 70 - 99 mg/dL [facility] Interpretation and review of laboratory results Abnormal [facility] Osmolality Calc [Osmolality] 303 [facility] Potassium [Moles/Vol] 3.8 mmol/L 3.5 - 5.0 mmol/L [facility] Sodium [Moles/Vol] 144 mmol/L 135 - 145 mmol/L [facility] Urea nitrogen [Mass/Vol] 18 mg/dL 7 - 25 mg/dL [facility] Urea nitrogen/Creatinine [Mass ratio] 13 mg/mg [facility] Anion gap [Moles/Vol] 15 mmol/L 7 - 17 mmol/L [facility] Chloride [Moles/Vol] 106 mmol/L 98 - 10 8 mmol/L [facility] CO2 [Moles/Vol] 24 mmol/L 21 - 31 mmol/L [facility] Creatinine [Mass/Vol] 1.46 mg/dL High 0.70 - 1.30 mg/dL [facility] GFR/1.73 sq M.predicted CKD-EPI (S/P/Bld) [Vol rate/Area] 58 Low >=60 mL/min/1.73m2 [facility] Comment on above: Reported eGFR is bas ed on the CKD-EPI 2020 equation using creatinine, age, and sex. Glucose [Mass/Vol] 103 mg/dL High 70 - 99 mg/dL [facility] Interpretation and review of laboratory results Abnormal [facility] Osmolality Calc [Osmolality] 298 [facility] Potassium [Moles/Vol] 3.9 mmol/L 3.5 - 5.0 mmol/L [facility] Sodium [Moles/Vol] 141 mmol/L 135 - 145 mmol/L [facility] Urea nitrogen [Mass/Vol] 21 mg/dL 7 - 25 mg/dL [facility] Urea nitrogen/Creatinine [Mass ratio] 14 mg/mg [facility] MAGNESIUMon 05-19-2022 Magnesium [Mass/Vol] 2.0 mg/dL 1.6 - 2 .6 mg/dL [facility] Magnesium [Mass/Vol] 1.7 mg/dL 1.6 - 2 .6 mg/dL [facility] No Panel Informationon 05-19 Interpretation and review of laboratory results Normal [facility] Interpretation and review of laboratory results Normal [facility] PHOSPHATE, INORGANICon 05-19 Phosphate [Mass/Vol] 3.0 mg/dL 2.2 - 4 .6 mg/dL [facility] Phosphate [Mass/Vol] 2.7 mg/dL 2.2 - 4 .6 mg/dL [facility] CALCIUMon 05-18-2022 Calcium [Mass/Vol] 9.1 mg/dL 8.6 - 10. 5 mg/dL [facility] CBC,PLATELETSon 05-18-2022 Erythrocyte distribution width (RBC) [Ratio] 12.5 % 10.9 - 14.3 % [facility] Hematocrit (Bld) [Volume fraction] 37.3 % Low 39.6 - 48.8 % [facility] Hemoglobin (Bld) [Mass/Vol] 11.9 g/dL Low 13.4 - 16.8 g/dL [facility] Interpretation and review of laboratory results Abnormal [facility] MCH (RBC) [Entitic mass] 28.9 pg 26.1 - 33.3 pg [facility] MCHC (RBC) [Mass/Vol] 31.9 g/dL 31.9 - 36.5 g/dL [facility] MCV (RBC) [Entitic vol] 90.5 fL 79.0 - 94.5 fL [facility] Platelet mean volume (Bld) [Entitic vol] 10.1 fL 8.7 - 12.3 fL [facility] Platelets (Bld) [#/Vol] 189 10*3/uL 146 - 337 K/uL [facility] RBC (Bld) [#/Vol] 4.12 10*6/uL Low [facility] WBC (Bld) [#/Vol] 10.19 10*3/uL High 3.73 - 10 .10 K/uL [facility] CHEM 7 (LYTES,BUN,CREA,GLUC) on 05-18-2022 Anion gap [Moles/Vol] 13 mmol/L 7 - 17 mmol/L [facility] Chloride [Moles/Vol] 102 mmol/L 98 - 10 8 mmol/L [facility] CO2 [Moles/Vol] 26 mmol/L 21 - 31 mmol/L [facility] Creatinine [Mass/Vol] 1.91 mg/dL High 0.70 - 1.30 mg/dL [facility] GFR/1.73 sq M.predicted CKD-EPI (S/P/Bld) [Vol rate/Area] 42 Low >=60 mL/min/1.73m2 [facility] Comment on above: Reported eGFR is bas ed on the CKD-EPI 2020 equation using creatinine, age, and sex. Glucose [Mass/Vol] 158 mg/dL High 70 - 99 mg/dL [facility] Osmolality Calc [Osmolality] 297 [facility] Potassium [Moles/Vol] 4.0 mmol/L 3.5 - 5.0 mmol/L [facility] Sodium [Moles/Vol] 137 mmol/L 135 - 145 mmol/L [facility] Urea nitrogen [Mass/Vol] 30 mg/dL High 7 - 25 mg/dL [facility] Urea nitrogen/Creatinine [Mass ratio] 16 mg/mg [facility] CHEM 7 (LYTES,BUN,CREA,GLUC) Ordered By: Tamiko Thapa on 05-18-2022 Anion gap [Moles/Vol] 13 mmol/L 7 - 17 mmol/L [facility] Chloride [Moles/Vol] 104 mmol/L 98 - 10 8 mmol/L [facility] CO2 [Moles/Vol] 26 mmol/L 21 - 31 mmol/L [facility] Creatinine [Mass/Vol] 2.96 mg/dL High 0.70 - 1.30 mg/dL [facility] GFR/1.73 sq M.predicted CKD-EPI (S/P/Bld) [Vol rate/Area] 25 Low >=60 mL/min/1.73m2 [facility] Comment on above: Reported eGFR is bas ed on the CKD-EPI 2020 equation using creatinine, age, and sex. Glucose [Mass/Vol] 136 mg/dL High 70 - 99 mg/dL [facility] Interpretation and review of laboratory results Abnormal [facility] Osmolality Calc [Osmolality] 304 [facility] Potassium [Moles/Vol] 4.2 mmol/L 3.5 - 5.0 mmol/L [facility] Sodium [Moles/Vol] 139 mmol/L 135 - 145 mmol/L [facility] Urea nitrogen [Mass/Vol] 41 mg/dL High 7 - 25 mg/dL [facility] Urea nitrogen/Creatinine [Mass ratio] 14 mg/mg [facility] MAGNESIUMon 05-18-2022 Magnesium [Mass/Vol] 2.2 mg/dL 1.6 - 2 .6 mg/dL [facility] Interpretation and review of laboratory results Normal [facility] Magnesium [Mass/Vol] 1.7 mg/dL 1.6 - 2 .6 mg/dL [facility] No Panel Informationon 05-18 Interpretation and review of laboratory results Abnormal [facility] Interpretation and review of laboratory results Normal [facility] PHOSPHATE, INORGANICon 05-18 Phosphate [Mass/Vol] 2.0 mg/dL Low 2.2 - 4 .6 mg/dL [facility] Interpretation and review of laboratory results Normal [facility] Phosphate [Mass/Vol] 2.8 mg/dL 2.2 - 4 .6 mg/dL [facility] PT,INR,PTTon 05-18-2022 aPTT Coag (PPP) [Time] 31.0 s [facility] INR Coag (Bld) [Relative time] 1.1 {INR} [facility] Interpretation and review of laboratory results Abnormal [facility] PT Coag (PPP) [Time] 14.4 s High [facility] URINE CULTUREOrdered By: Sylvia Campos on 05-18-2022 Bacteria identified Cx Nom (Unsp spec) No Growth [facility] CBC,PLATELETSon 05-17-2022 Erythrocyte distribution width (RBC) [Ratio] 12.8 % 10.9 - 14.3 % [facility] Hematocrit (Bld) [Volume fraction] 42.8 % 39.6 - 48.8 % [facility] Hemoglobin (Bld) [Mass/Vol] 13.3 g/dL Low 13.4 - 16.8 g/dL [facility] Interpretation and review of laboratory results Abnormal [facility] MCH (RBC) [Entitic mass] 28.9 pg 26.1 - 33.3 pg [facility] MCHC (RBC) [Mass/Vol] 31.1 g/dL Low 31.9 - 36.5 g/dL [facility] MCV (RBC) [Entitic vol] 92.8 fL 79.0 - 94.5 fL [facility] Platelet mean volume (Bld) [Entitic vol] 10.3 fL 8.7 - 12.3 fL [facility] Platelets (Bld) [#/Vol] 188 10*3/uL 146 - 337 K/uL [facility] RBC (Bld) [#/Vol] 4.61 10*6/uL [facility] WBC (Bld) [#/Vol] 16.61 10*3/uL High 3.73 - 10 .10 K/uL [facility] CHEM 7 (LYTES,BUN,CREA,GLUC) Ordered By: Kaylah Mc on 05-17-2022 Anion gap [Moles/Vol] 15 mmol/L 7 - 17 mmol/L [facility] Chloride [Moles/Vol] 103 mmol/L 98 - 10 8 mmol/L [facility] CO2 [Moles/Vol] 23 mmol/L 21 - 31 mmol/L [facility] Creatinine [Mass/Vol] 5.95 mg/dL High 0.70 - 1.30 mg/dL [facility] GFR/1.73 sq M.predicted CKD-EPI (S/P/Bld) [Vol rate/Area] 11 Low >=60 mL/min/1.73m2 [facility] Comment on above: Reported eGFR is bas ed on the CKD-EPI 2020 equation using creatinine, age, and sex. Glucose [Mass/Vol] 165 mg/dL High 70 - 99 mg/dL [facility] Interpretation and review of laboratory results Abnormal [facility] Osmolality Calc [Osmolality] 305 [facility] Potassium [Moles/Vol] 4.6 mmol/L 3.5 - 5.0 mmol/L [facility] Sodium [Moles/Vol] 136 mmol/L 135 - 145 mmol/L [facility] Urea nitrogen [Mass/Vol] 52 mg/dL High 7 - 25 mg/dL [facility] Urea nitrogen/Creatinine [Mass ratio] 9 mg/mg [facility] CHEM 7 (LYTES,BUN,CREA,GLUC) Ordered By: Kehinde Olsen on 05-17-2022 Anion gap [Moles/Vol] 24 mmol/L High 7 - 17 mmol/L [facility] Chloride [Moles/Vol] 100 mmol/L 98 - 10 8 mmol/L [facility] CO2 [Moles/Vol] 16 mmol/L Low 21 - 31 mmol/L [facility] Creatinine [Mass/Vol] 8.08 mg/dL High 0.70 - 1.30 mg/dL [facility] GFR/1.73 sq M.predicted CKD-EPI (S/P/Bld) [Vol rate/Area] 7 Low >=60 mL/min/1.73m2 [facility] Comment on above: Reported eGFR is bas ed on the CKD-EPI 2020 equation using creatinine, age, and sex. Glucose [Mass/Vol] 164 mg/dL High 70 - 99 mg/dL [facility] Interpretation and review of laboratory results Abnormal [facility] Osmolality Calc [Osmolality] 305 [facility] Potassium [Moles/Vol] 5.0 mmol/L 3.5 - 5.0 mmol/L [facility] Sodium [Moles/Vol] 135 mmol/L 135 - 145 mmol/L [facility] Urea nitrogen [Mass/Vol] 56 mg/dL High 7 - 25 mg/dL [facility] Urea nitrogen/Creatinine [Mass ratio] 7 mg/mg [facility] LAVENDER TOP TUBEon 05-17-20 [facility] MAGNESIUMon 05-17-2022 Interpretation and review of laboratory results Normal [facility] Magnesium [Mass/Vol] 1.8 mg/dL 1.6 - 2 .6 mg/dL [facility] Interpretation and review of laboratory results Normal [facility] Magnesium [Mass/Vol] 1.6 mg/dL 1.6 - 2 .6 mg/dL [facility] No Panel Informationon 05-17 [facility] PHOSPHATE, INORGANICon 05-17 Interpretation and review of laboratory results Abnormal [facility] Phosphate [Mass/Vol] 4.9 mg/dL High 2.2 - 4 .6 mg/dL [facility] PT,INR,PTTon 05-17-2022 aPTT Coag (PPP) [Time] 33.0 s [facility] INR Coag (Bld) [Relative time] 1.3 {INR} High [facility] Interpretation and review of laboratory results Abnormal [facility] PT Coag (PPP) [Time] 15.7 s High [facility] Viewson IMPRESSION: [...] Stable cardiomegaly. IMPRESSION IMPRESSION: No acute findings. [facility] Radiology Study observation (narrative) [facility] Portable XR Chest ViewsOrder ed By: David Sanz on 05-17-2022 [facility] Work Phone: URINALYSISOrdered By: Michael patel Ma on 05-17-2022 Appearance (U) Cloudy Abnormal Clear [facility] Comment on above: Results may be inacc urate due to color interference. Clinical correlation recommended. Bacteria LM Ql (Urine sed) ABSENT ABSENT [facility] Color (U) Red Abnormal Yellow [facility] Comment on above: Results may be inacc urate due to color interference. Clinical correlation recommended. Epithelial cells.squamous LM Ql (Urine sed) ABSENT 1/hpf = 1+, 2-5/hpf = 2+, 0/hpf = 0+, ABSENT [facility] Glucose Test strip (U) [Mass/Vol] Negative Negative [facility] Comment on above: Results may be inacc urate due to color interference. Clinical correlation recommended. Interpretation and review of laboratory results Abnormal [facility] Ketones (U) [Mass/Vol] Trace Abnormal Negative [facility] Comment on above: Results may be inacc urate due to color interference. Clinical correlation recommended. Leukocyte esterase Test strip Ql (U) Large Abnormal Negative [facility] Comment on above: Results may be inacc urate due to color interference. Clinical correlation recommended. Nitrite Ql (U) Negative Negative [facility] Comment on above: Results may be inacc urate due to color interference. Clinical correlation recommended. pH (U) 5.0 [pH] 5.0 - 7.0 [facility] Comment on above: Results may be inacc urate due to color interference. Clinical correlation recommended. Protein (U) [Mass/Vol] mg/dL Abnormal Negative [facility] Comment on above: Results may be inacc urate due to color interference. Clinical correlation recommended. RBC (U) [#/Vol] Large Abnormal Negative [facility] Comment on above: Results may be inacc urate due to color interference. Clinical correlation recommended. RBC LM.HPF (Urine sed) [#/Area] /[HPF] Abnormal 0 - 2 /HPF [facility] Specific gravity (U) [Rel density] 1.016 [facility] Comment on above: Results may be inacc urate due to color interference. Clinical correlation recommended. Urobilinogen (U) [Mass/Vol] 0.2 E.U./dL 0.2 E.U/dL, 1.0 E.U/dL [facility] Comment on above: Results may be inacc urate due to color interference. Clinical correlation recommended. WBC LM.HPF (Urine sed) [#/Area] /[HPF] Abnormal 0 - 5 /HPF [facility] URINE CULTUREOrdered By: Tyler Tiwari on 05-17-2022 Bacteria identified Cx Nom (Unsp spec) No Growth [facility] CBC,PLATELETSon 05-16-2022 Erythrocyte distribution width (RBC) [Ratio] 12.9 % 10.9 - 14.3 % [facility] Hematocrit (Bld) [Volume fraction] 46.5 % 39.6 - 48.8 % [facility] Hemoglobin (Bld) [Mass/Vol] 14.7 g/dL 13.4 - 16.8 g/dL [facility] Interpretation and review of laboratory results Abnormal [facility] MCH (RBC) [Entitic mass] 28.3 pg 26.1 - 33.3 pg [facility] MCHC (RBC) [Mass/Vol] 31.6 g/dL Low 31.9 - 36.5 g/dL [facility] MCV (RBC) [Entitic vol] 89.6 fL 79.0 - 94.5 fL [facility] Platelet mean volume (Bld) [Entitic vol] 10.3 fL 8.7 - 12.3 fL [facility] Platelets (Bld) [#/Vol] 188 10*3/uL 146 - 337 K/uL [facility] RBC (Bld) [#/Vol] 5.19 10*6/uL [facility] WBC (Bld) [#/Vol] 12.55 10*3/uL High 3.73 - 10 .10 K/uL [facility] CHEM 7 (LYTES,BUN,CREA,GLUC) Ordered By: Alma Pena on 05-16-2022 Anion gap [Moles/Vol] 14 mmol/L 7 - 17 mmol/L [facility] Chloride [Moles/Vol] 103 mmol/L 98 - 10 8 mmol/L [facility] CO2 [Moles/Vol] 22 mmol/L 21 - 31 mmol/L [facility] Creatinine [Mass/Vol] 6.09 mg/dL High 0.70 - 1.30 mg/dL [facility] GFR/1.73 sq M.predicted CKD-EPI (S/P/Bld) [Vol rate/Area] 10 Low >=60 mL/min/1.73m2 [facility] Comment on above: Reported eGFR is bas ed on the CKD-EPI 2020 equation using creatinine, age, and sex. Glucose [Mass/Vol] 134 mg/dL High 70 - 99 mg/dL [facility] Interpretation and review of laboratory results Abnormal [facility] Osmolality Calc [Osmolality] 298 [facility] Potassium [Moles/Vol] 4.9 mmol/L 3.5 - 5.0 mmol/L [facility] Sodium [Moles/Vol] 134 mmol/L Low 135 - 145 mmol/L [facility] Comment on above: Results inconsistent with previous results Urea nitrogen [Mass/Vol] 49 mg/dL High 7 - 25 mg/dL [facility] Urea nitrogen/Creatinine [Mass ratio] 8 mg/mg [facility] CHEM 7 (LYTES,BUN,CREA,GLUC) on 05-16-2022 Anion gap [Moles/Vol] 17 mmol/L 7 - 17 mmol/L [facility] Chloride [Moles/Vol] 106 mmol/L 98 - 10 8 mmol/L [facility] CO2 [Moles/Vol] 22 mmol/L 21 - 31 mmol/L [facility] Creatinine [Mass/Vol] 5.23 mg/dL High 0.70 - 1.30 mg/dL [facility] GFR/1.73 sq M.predicted CKD-EPI (S/P/Bld) [Vol rate/Area] 13 Low >=60 mL/min/1.73m2 [facility] Comment on above: Reported eGFR is bas ed on the CKD-EPI 2020 equation using creatinine, age, and sex. Glucose [Mass/Vol] 116 mg/dL High 70 - 99 mg/dL [facility] Interpretation and review of laboratory results Abnormal [facility] Osmolality Calc [Osmolality] 305 [facility] Potassium [Moles/Vol] 4.6 mmol/L 3.5 - 5.0 mmol/L [facility] Sodium [Moles/Vol] 140 mmol/L 135 - 145 mmol/L [facility] Urea nitrogen [Mass/Vol] 42 mg/dL High 7 - 25 mg/dL [facility] Urea nitrogen/Creatinine [Mass ratio] 8 mg/mg [facility] EXTRA MICROon 05-16-2022 [facility] LT BLUE TOP TUBEon 2 [facility] LYTES (NA, K, CL) - URINE - RANDOMon 05-16-2022 Chloride (24H U) [Moles/Vol] 68 mmol/L [facility] Potassium (24H U) [Moles/Vol] 36.7 mmol/L [facility] Sodium (24H U) [Moles/Vol] 55 mmol/L [facility] The reference range has not been established for random urine specimens. The test result should be integrated into the clinical context for interpretation. [facility] MAGNESIUMon 05-16-2022 Interpretation and review of laboratory results Normal [facility] Magnesium [Mass/Vol] 1.7 mg/dL 1.6 - 2 .6 mg/dL [facility] NOVEL CORONAVIRUS PCROrdered By: Edson Candelario on 05-16-2022 SARS-CoV-2 (COVID-19) RNA ESTELITA+probe Ql (Unsp spec) Not detected NOT DETECTED [facility] Comment on above: [facility] Negative results do [...] use authorization for use by authorized laboratories. [facility] No Panel Informationon 05-16 [facility] OSMOLALITY, URINEon 05-16-20 Interpretation and review of laboratory results Normal [facility] Osmolality (U) [Osmolality] 320 mosm/kg [facility] The reference range has not been established for random urine specimens. The test result should be integrated into the clinical context for interpretation. [facility] PROCALCITONINon 05-16-2022 Interpretation and review of laboratory results Normal [facility] Procalcitonin [Mass/Vol] 0.18 ng/mL <0.50 [facility] Comment on above: Procalcitonin is an [...] and trend procalcitonin in various clinical settings. [email or web address] Two common cutoffs associated with bacterial infections are as follows. Respiratory tract infections: >0.25 ng/mL Sepsis/septic shock: >0.5 ng/mL Procalcitonin should not be used alone as a diagnostic tool, however. All procalcitonin results should be interpreted in association with the patients clinical condition and all laboratory findings. [facility] PT,INR,PTTon 05-16-2022 aPTT Coag (PPP) [Time] 30.3 s [facility] INR Coag (Bld) [Relative time] 1.1 {INR} [facility] Interpretation and review of laboratory results Normal [facility] PT Coag (PPP) [Time] 14.1 s [facility] SARS-CoV-2 (COVID-19) RNA NA A+probe Ql (Unsp spec)Ordered By: Edson Candelario on 05-16-2022 Interpretation and review of laboratory results Normal [facility] TACROLIMUS LEVEL, TROUGH (NE E DRUG LEVEL)Ordered By: Mariama Nick on 05-16-2022 Interpretation and review of laboratory results Normal [facility] Tacrolimus (Bld) [Mass/Vol] 4.1 ng/mL Bone Marrow Transplant: 4.0-12.0, Therapeutic: 5.0-15.0 [facility] Method performed is a chemiluminescent microparticle immunoasssay on the [employer] i2000. The range is based on experience at [facility] and users should be aware that target concentrations vary widely depending on concomitant therapy, time post-transplant, and desired degree of immunosuppression. [facility] URINE PROTEIN/CREA RATIO, RA Smiley 05-16-2022 Creatinine (24H U) [Mass/Vol] 59.82 mg/dL [facility] Protein Unsp time (U) [Mass/Vol] 111 mg/dL [facility] Protein/Creatinine (U) [Mass ratio] 1.856 mg/g [facility] US for transplanted kidney l imitedon [...] appearing vascular flow in the transplant kidney. [facility] Radiology Study observation (narrative) [facility] US for transplanted kidney l imitedOrdered By: Rosendo Matute on 05-16-2022 [facility] Work Phone: CBC AND ELECTRONIC DIFFon Basophils (Bld) [#/Vol] 10*3/uL 0.00 - 0.09 K/uL [facility] Basophils/100 WBC (Bld) 0.2 % [facility] [facility] Differential cell count method Nom (Bld) Electronic Differential [facility] Eosinophils (Bld) [#/Vol] 10*3/uL 0.00 - 0.48 K/uL [facility] Eosinophils/100 WBC (Bld) 0.0 % [facility] Erythrocyte distribution width (RBC) [Ratio] 12.8 % 10.9 - 14.3 % [facility] Hematocrit (Bld) [Volume fraction] 46.0 % 39.6 - 48.8 % [facility] Hemoglobin (Bld) [Mass/Vol] 14.6 g/dL 13.4 - 16.8 g/dL [facility] Immature granulocytes (Bld) [#/Vol] 0.07 10*3/uL <=0.08 [facility] Immature granulocytes/100 WBC (Bld) 0.4 % [facility] Interpretation and review of laboratory results Abnormal [facility] Lymphocytes (Bld) [#/Vol] 1.49 10*3/uL 0.83 - 3.57 K/uL [facility] Lymphocytes/100 WBC (Bld) 9.4 % [facility] MCH (RBC) [Entitic mass] 28.2 pg 26.1 - 33.3 pg [facility] MCHC (RBC) [Mass/Vol] 31.7 g/dL Low 31.9 - 36.5 g/dL [facility] MCV (RBC) [Entitic vol] 89.0 fL 79.0 - 94.5 fL [facility] Monocytes (Bld) [#/Vol] 1.45 10*3/uL High 0.24 - 0.93 K/uL [facility] Monocytes/100 WBC (Bld) 9.2 % [facility] Neutrophils (Bld) [#/Vol] 12.77 10*3/uL High 1.57 - 6.19 K/uL [facility] Nucleated RBC/100 WBC (Bld) [Ratio] 0.0 % <=0.2 /100 WBC [facility] Platelet mean volume (Bld) [Entitic vol] 9.9 fL 8.7 - 12.3 fL [facility] Platelets (Bld) [#/Vol] 250 10*3/uL 146 - 337 K/uL [facility] RBC (Bld) [#/Vol] 5.17 10*6/uL [facility] Segmented neutrophils/100 WBC (Bld) 80.8 % [facility] WBC (Bld) [#/Vol] 15.81 10*3/uL High 3.73 - 10 .10 K/uL [facility] CBC AUTO DIFFon 05-15-2022 BASO # 0.0 103/ul Normal 0.0-0.1 [facility] Comment on above: Performed By: #### C BC #### [facility] [address] [address] [address] Dwight Waters Basophils/100 WBC (Bld) 0.3 % Normal 0.2-2.0 [facility] Comment on above: Performed By: #### C BC #### [facility] [address] [address] [address] Dwight Waters EO # 0.1 103/ul Normal 0.0-0.7 [facility] Comment on above: Performed By: #### C BC #### [facility] [address] [address] [address] Dwight Waters Eosinophils/100 WBC (Bld) 0.8 % Critically low 0.9-7.0 [facility] Comment on above: Performed By: #### C BC #### [facility] [address] [address] [address] Dwight Waters Erythrocyte distribution width (RBC) [Ratio] 12.7 % Normal 11.0-15.0 [facility] Comment on above: Performed By: #### C BC #### [facility] [address] [address] [address] Dwight Waters Hematocrit (Bld) [Volume fraction] 43.5 % Normal 42.0-54.0 [facility] Comment on above: Performed By: #### C BC #### [facility] [address] [address] [address] Dwight Waters Hemoglobin (Bld) [Mass/Vol] 14.4 g/dL Normal 14.0-18.0 [facility] Comment on above: Performed By: #### C BC #### [facility] [address] [address] [address] Dwight Waters IG # 0.02 10e3/ul Normal 0.00-0.03 [facility] Comment on above: Performed By: #### C BC #### [facility] [address] [place] [address] Dr. Dwight Waters IG % 0.2 % Normal 0.0-0.5 [facility] Comment on above: Performed By: #### C BC #### [facility] [address] [place] [address] Dr. Dwight Waters LYMPH # 1.5 103/ul Normal 1.2-3.8 [facility] Comment on above: Performed By: #### C BC #### [facility] [address] [place] [address] Dr. Dwight Waters Lymphocytes/100 WBC (Bld) 12.5 % Critically low 20.5-60.0 [facility] Comment on above: Performed By: #### C BC #### [facility] [address] [place] [address] Dr. Dwight aWters MANUAL DIFF REQ NO Normal [facility] Comment on above: Performed By: #### C BC #### [facility] [address] [place] [address] Dr. Dwight Waters MCH (RBC) [Entitic mass] 28.6 pg Normal 25.9-34.0 [facility] Comment on above: Performed By: #### C BC #### [facility] [address] [place] [address] Dr. Dwight Waters MCHC (RBC) [Mass/Vol] 33.1 g/dL Normal 29.9-35.2 [facility] Comment on above: Performed By: #### C BC #### [facility] [address] [place] [address] Dr. Dwight Waters MCV (RBC) [Entitic vol] 86.3 fL Normal 80.0-94.0 [facility] Comment on above: Performed By: #### C BC #### [facility] [address] [place] [address] Dr. Dwight Waters MONO # 1.0 103/ul Critically high 0.3-0.8 [facility] Comment on above: Performed By: #### C BC #### [facility] [address] [address] [address] Dwight Waters Monocytes/100 WBC (Bld) 8.2 % Normal 1.7-12.0 [facility] Comment on above: Performed By: #### C BC #### [facility] [address] [address] [address] Dwight Waters NEUT # 9.1 103/ul Critically high 1.4-6.5 [facility] Comment on above: Performed By: #### C BC #### [facility] [address] [address] [address] Dwight Waters Neutrophils/100 WBC (Bld) 78.0 % Critically high 43.0-75.0 [facility] Comment on above: Performed By: #### C BC #### [facility] [address] [place] [address] Dr. Dwight Waters Platelet mean volume (Bld) [Entitic vol] 9.8 fL Normal 9.5-13.5 [facility] Comment on above: Performed By: #### C BC #### [facility] [address] [address] [address] Dwight Waters PLT 251 103/ul Normal 150-450 [facility] Comment on above: Performed By: #### C BC #### [facility] [address] [place] [address] Dr. Dwight Waters RBC 5.04 106/ul Normal 4.70-6.10 [facility] Comment on above: Performed By: #### C BC #### [facility] [address] [place] [address] Dr. Dwight Waters WBC 11.6 103/ul Critically high 4.0-11.0 [facility] Comment on above: Performed By: #### C BC #### [facility] [address] [place] [address] Dr. Dwight Waters CHEM 6 (LYTES, BUN CREA)on 0 05-15-2022 Anion gap [Moles/Vol] 12 mmol/L 7 - 17 mmol/L [facility] Chloride [Moles/Vol] 105 mmol/L 98 - 10 8 mmol/L [facility] CO2 [Moles/Vol] 26 mmol/L 21 - 31 mmol/L [facility] Creatinine [Mass/Vol] 2.85 mg/dL High 0.70 - 1.30 mg/dL [facility] GFR/1.73 sq M.predicted CKD-EPI (S/P/Bld) [Vol rate/Area] 26 Low >=60 mL/min/1.73m2 [facility] Comment on above: Reported eGFR is bas ed on the CKD-EPI 2020 equation using creatinine, age, and sex. Potassium [Moles/Vol] 4.6 mmol/L 3.5 - 5.0 mmol/L [facility] Sodium [Moles/Vol] 138 mmol/L 135 - 145 mmol/L [facility] Urea nitrogen [Mass/Vol] 32 mg/dL High 7 - 25 mg/dL [facility] Urea nitrogen/Creatinine [Mass ratio] 11 mg/mg [facility]BD/PELVIS WO CONon 05-15 [...] transplanted kidney with moderate right-sided hydronephrosis. Atrophic [place] kidneys with moderate right-sided hydronephrosis. Multiple nonobstructive [...] transplanted kidney with moderate right-sided hydronephrosis. Atrophic [place] kidneys with moderate right-sided hydronephrosis. Multiple nonobstructive right renal calculi measuring up to 8 mm. FOLLOW-UP: Follow-up as clinically indicated. Electronically authenticated by: LYNDSAY JEAN Date: 2022-05-15 05:04 Normal [facility] SARS-CoV-2 (COVID-19) RNA ESTELITA+probe Ql (Unsp spec) Not detected Normal NOT DETECTED [facility] Comment on above: Result Comment: When diagnostic [...] for this test is supported by the [employer] Officer of Health and Human Service's declaration that [...] used). Performed By: #### U RTPCR #### [facility] [address] [address] [address] Dwight Waters GLUCOSEon 05-15-2022 Glucose [Mass/Vol] 141 mg/dL High 70 - 99 mg/dL [facility] GOLD TOP TUBEon 05-15-2022 [facility] HEPATIC FUNCTION PANELon Albumin [Mass/Vol] 4.3 g/dL 3.5 - 5.0 g/dL [facility] ALP [Catalytic activity/Vol] 85 U/L 32 - 126 U/L [facility] ALT [Catalytic activity/Vol] 13 U/L 10 - 52 U/L [facility] AST [Catalytic activity/Vol] 15 U/L 10 - 39 U/L [facility] Bilirubin [Mass/Vol] 0.8 mg/dL <1.5 [facility] Bilirubin.direct [Mass/Vol] 0.2 mg/dL <0.3 [facility] Interpretation and review of laboratory results Normal [facility] Protein [Mass/Vol] 7.3 g/dL 6.4 - 8.3 g/dL [facility] LIPASEon 05-15-2022 Lipase [Catalytic activity/Vol] 8 U/L Low 11 - 82 U/L [facility] No Panel Informationon 05-15 Interpretation and review of laboratory results Abnormal [facility] PROF 14(COMP METB)on 022 Albumin [Mass/Vol] 3.8 g/dL Normal 3.4-5.0 [facility] Comment on above: Performed By: #### U RTPCR #### [facility] [address] [place] [address] Dr. Dwight Waters Albumin/Globulin [Mass ratio] 1.1 {ratio} Normal [facility] Comment on above: Performed By: #### U RTPCR #### [facility] [address] [place] [address] Dr. Dwight Waters ALP [Catalytic activity/Vol] 92 U/L Normal 46-116 [facility] Comment on above: Performed By: #### U RTPCR #### [facility] [address] [place] [address] Dr. Dwight Waters ALT [Catalytic activity/Vol] 25 U/L Normal 16-63 [facility] Comment on above: Performed By: #### U RTPCR #### [facility] [address] [place] [address] Dr. Dwight Waters Anion gap [Moles/Vol] 14.6 mmol/L Normal [facility] Comment on above: Performed By: #### U RTPCR #### [facility] [address] [address] [address] Dwight Waters AST [Catalytic activity/Vol] 17 U/L Normal 15-37 [facility] Comment on above: Performed By: #### U RTPCR #### [facility] [address] [address] [address] Dwight Waters Bilirubin [Mass/Vol] 0.6 mg/dL Normal 0.2-1.0 [facility] Comment on above: Performed By: #### U RTPCR #### [facility] [address] [address] [address] Dwight Waters Calcium [Mass/Vol] 9.9 mg/dL Normal 8.5-10.1 [facility] Comment on above: Performed By: #### U RTPCR #### [facility] [address] [place] [address] Dr. Dwight Waters Chloride [Moles/Vol] 106 mmol/L Normal 98-107 [facility] Comment on above: Performed By: #### U RTPCR #### [facility] [address] [address] [address] Dwight Waters CO2 [Moles/Vol] 24.2 mmol/L Normal 21.0-32.0 [facility] Comment on above: Performed By: #### U RTPCR #### [facility] [address] [address] [address] Dwight Waters Creatinine [Mass/Vol] 1.58 mg/dL Critically high 0.70-1.30 [facility] Comment on above: Performed By: #### U RTPCR #### [facility] [address] [address] [address] Dwight Waters EGFR-AF PUERTO RICAN 56 mL/min/1.73m2 Critically low >=60 [facility] Comment on above: Performed By: #### U RTPCR #### [facility] [address] [address] [address] Dwight Waters EGFR-NON AF PUERTO RICAN 46 mL/min/1.73m2 Critically low >=60 [facility] Comment on above: Performed By: #### U RTPCR #### [facility] [address] [address] [address] Dwight Waters Globulin (S) [Mass/Vol] 3.5 g/dL Normal [facility] Comment on above: Performed By: #### U RTPCR #### [facility] [address] [address] [address] Dwight Waters Glucose [Mass/Vol] 162 mg/dL Critically high 74-106 T [facility] Comment on above: Performed By: #### U RTPCR #### [facility] [address] [address] [address] Dwight Waters Potassium [Moles/Vol] 3.8 mmol/L Normal 3.5-5.1 [facility] Comment on above: Performed By: #### U RTPCR #### [facility] [address] [address] [address] Dwight Waters Protein [Mass/Vol] 7.3 g/dL Normal 6.4-8.2 [facility] Comment on above: Performed By: #### U RTPCR #### [facility] [address] [address] [address] Dwight Waters Sodium [Moles/Vol] 141 mmol/L Normal 136-145 [facility] Comment on above: Performed By: #### U RTPCR #### [facility] [address] [address] [address] Dwight Waters Urea nitrogen [Mass/Vol] 22.0 mg/dL Critically high 7.0-18.0 [facility] Comment on above: Performed By: #### U RTPCR #### [facility] [address] [address] [address] Dwight Waters Urea nitrogen/Creatinine [Mass ratio] 13.9 mg/mg Normal [facility] Comment on above: Performed By: #### U RTPCR #### [facility] [address] [place] [address] Dr. Dwight Waters Portable XR Chest Viewson [...] chest. IMPRESSION IMPRESSION: No acute cardiopulmonary disease [facility] Radiology Study observation (narrative) [facility] Portable XR Chest ViewsOrder ed By: Vladislav Omer on 05-15-2022 [facility] URINE DIPSTICK; REFLEX MICRO SCOPY; REFLEX CULTURE PERFORMABLEon 05-15-2022 Appearance (U) Clear Clear [facility] Color (U) Yellow Yellow [facility] Glucose Test strip (U) [Mass/Vol] 100 mg/dL Abnormal Negative [facility] Interpretation and review of laboratory results Abnormal [facility] Ketones (U) [Mass/Vol] Negative Negative [facility] Leukocyte esterase Test strip Ql (U) Large Abnormal Negative [facility] Nitrite Ql (U) Negative Negative [facility] pH (U) 6.0 [pH] 5.0 - 7.0 [facility] Protein (U) [Mass/Vol] 100 mg/dL Abnormal Negative [facility] RBC (U) [#/Vol] Large Abnormal Negative [facility] Specific gravity (U) [Rel density] 1.010 [facility] Urobilinogen (U) [Mass/Vol] 0.2 E.U./dL 0.2 E.U/dL, 1.0 E.U/dL [facility] URINE MICROSCOPIC WITH REFLE X TO CULTUREOrdered By: Rey Bro on 05-15-2022 Bacteria LM Ql (Urine sed) ABSENT ABSENT [facility] Epithelial cells.squamous LM Ql (Urine sed) ABSENT 1/hpf = 1+, 2-5/hpf = 2+, 0/hpf = 0+, ABSENT [facility] Interpretation and review of laboratory results Abnormal [facility] RBC LM.HPF (Urine sed) [#/Area] /[HPF] Abnormal 0 - 2 /HPF [facility] WBC LM.HPF (Urine sed) [#/Area] 10-20 Abnormal 0 - 5 /HPF [facility] CT ABD/PELVIS WO CONon 05-12 CT ABD/PELVIS WO CON Begin Addendum #[address] Lund 3:25 PM EST 05/11/2022. Begin Addendum #2 IMPRESSION below should also contain the followin. 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 The [place] kidneys are progressively atrophic bilaterally compared to [...] of 06/14/2020 are no longer present. The [place] distal right ureter is decompressed beyond this [...] with surgical history for renal graft and [place] right urinary drainage, as a discrete ureteroneocystostomy is not identified, and the graft may be draining via a ureteroureterostomy. Urology consultation recommended. 3. The [place] kidneys are bilaterally atrophic, with right renal sinus calcifications consistent with nonobstructing right [place] renal calculi up to 6 mm. Normal [facility] CBC AUTO DIFFon 05-11-2022 BASO # 0.1 103/ul Normal 0.0-0.1 [facility] Comment on above: Performed By: #### U RTPCR #### [facility] [address] [address] [address] Dwight Waters Basophils/100 WBC (Bld) 0.8 % Normal 0.2-2.0 [facility] Comment on above: Performed By: #### U RTPCR #### [facility] [address] [address] [address] Dwight Waters EO # 0.2 103/ul Normal 0.0-0.7 [facility] Comment on above: Performed By: #### U RTPCR #### [facility] [address] [place] [address] Dr. Dwight Waters Eosinophils/100 WBC (Bld) 2.5 % Normal 0.9-7.0 [facility] Comment on above: Performed By: #### U RTPCR #### [facility] [address] [place] [address] Dr. Dwight Waters Erythrocyte distribution width (RBC) [Ratio] 12.5 % Normal 11.0-15.0 [facility] Comment on above: Performed By: #### U RTPCR #### [facility] [address] [place] [address] Dr. Dwight Waters Hematocrit (Bld) [Volume fraction] 48.3 % Normal 42.0-54.0 [facility] Comment on above: Performed By: #### U RTPCR #### [facility] [address] [place] [address] Dr. Dwight Waters Hemoglobin (Bld) [Mass/Vol] 15.3 g/dL Normal 14.0-18.0 [facility] Comment on above: Performed By: #### U RTPCR #### [facility] [address] [place] [address] Dr. Dwight Waters IG # 0.01 10e3/ul Normal 0.00-0.03 [facility] Comment on above: Performed By: #### U RTPCR #### [facility] [address] [place] [address] Dr. Dwight Waters IG % 0.2 % Normal 0.0-0.5 [facility] Comment on above: Performed By: #### U RTPCR #### [facility] [address] [address] [address] Dwight Waters LYMPH # 1.9 103/ul Normal 1.2-3.8 [facility] Comment on above: Performed By: #### U RTPCR #### [facility] [address] [address] [address] Dwight Waters Lymphocytes/100 WBC (Bld) 29.8 % Normal 20.5-60.0 [facility] Comment on above: Performed By: #### U RTPCR #### [facility] [address] [address] [address] Dwight Waters MANUAL DIFF REQ NO Normal [facility] Comment on above: Performed By: #### U RTPCR #### [facility] [address] [place] [address] Dr. Dwight Waters MCH (RBC) [Entitic mass] 28.2 pg Normal 25.9-34.0 [facility] Comment on above: Performed By: #### U RTPCR #### [facility] [address] [address] [address] Dwight Waters MCHC (RBC) [Mass/Vol] 31.7 g/dL Normal 29.9-35.2 [facility] Comment on above: Performed By: #### U RTPCR #### [facility] [address] [address] [address] Dwight Waters MCV (RBC) [Entitic vol] 89.1 fL Normal 80.0-94.0 [facility] Comment on above: Performed By: #### U RTPCR #### [facility] [address] [address] [address] Dwight Waters MONO # 0.6 103/ul Normal 0.3-0.8 [facility] Comment on above: Performed By: #### U RTPCR #### [facility] [address] [address] [address] Dwight Waters Monocytes/100 WBC (Bld) 9.0 % Normal 1.7-12.0 [facility] Comment on above: Performed By: #### U RTPCR #### [facility] [address] [place] [address] Dr. Dwight Waters NEUT # 3.6 103/ul Normal 1.4-6.5 [facility] Comment on above: Performed By: #### U RTPCR #### [facility] [address] [place] [address] Dr. Dwight Waters Neutrophils/100 WBC (Bld) 57.7 % Normal 43.0-75.0 [facility] Comment on above: Performed By: #### U RTPCR #### [facility] [address] [place] [address] Dr. Dwight Waters Platelet mean volume (Bld) [Entitic vol] 9.9 fL Normal 9.5-13.5 [facility] Comment on above: Performed By: #### U RTPCR #### [facility] [address] [place] [address] Dr. Dwight Waters PLT 249 103/ul Normal 150-450 [facility] Comment on above: Performed By: #### U RTPCR #### [facility] [address] [place] [address] Dr. Dwight Waters RBC 5.42 106/ul Normal 4.70-6.10 [facility] Comment on above: Performed By: #### U RTPCR #### [facility] [address] [place] [address] Dr. Dwight Waters WBC 6.3 103/ul Normal 4.0-11.0 [facility] Comment on above: Performed By: #### U RTPCR #### [facility] [address] [place] [address] Dr. Dwight Waters ER URINE PROFILEon 2 Bilirubin Ql (U) Unable to perform testing due to color interference. Abnormal NEGATIVE [facility] Comment on above: Performed By: #### U RTPCR #### [facility] [address] [place] [address] Dr. Dwight Waters Clarity (U) TURBID Abnormal CLEAR [facility] Comment on above: Performed By: #### U RTPCR #### [facility] [address] [place] [address] Dr. Dwight Waters Color (U) RED Abnormal YELLOW [facility] Comment on above: Performed By: #### U RTPCR #### [facility] [address] [place] [address] Dr. Dwight Waters ERUAHJenna A micrscopic examination will be performed if indicated. Normal [facility] Comment on above: Performed By: #### U RTPCR #### [facility] [address] [place] [address] Dr. Dwight Waters Glucose Ql (U) Unable to perform testing due to color interference. Abnormal NEGATIVE [facility] Comment on above: Performed By: #### U RTPCR #### [facility] [address] [place] [address] Dr. Dwight Waters Hemoglobin Ql (U) Unable to perform testing due to color interference. Abnormal NEGATIVE [facility] Comment on above: Performed By: #### U RTPCR #### [facility] [address] [place] [address] Dr. Dwight Waters Ketones Ql (U) Unable to perform testing due to color interference. Abnormal NEGATIVE [facility] Comment on above: Performed By: #### U RTPCR #### [facility] [address] [place] [address] Dr. Dwight Waters LEUKOCYTES Unable to perform testing due to color interference. Abnormal NEGATIVE [facility] Comment on above: Performed By: #### U RTPCR #### [facility] [address] [place] [address] Dr. Dwight Waters Nitrite Ql (U) Unable to perform testing due to color interference. Abnormal NEGATIVE [facility] Comment on above: Performed By: #### U RTPCR #### [facility] [address] [place] [address] Dr. Dwight Waters pH (U) 6.5 [pH] Normal 5-9 [facility] Comment on above: Performed By: #### U RTPCR #### [facility] [address] [place] [address] Dr. Dwight Waters SPEC GRAVITY 1.020 Normal 1.005-<=1.025 [facility] Comment on above: Performed By: #### U RTPCR #### [facility] [address] [place] [address] Dr. Dwight Waters UA PROTEIN Unable to perform testing due to color interference. Normal NEGATIVE/ TRACE [facility] Comment on above: Performed By: #### U RTPCR #### [facility] [address] [place] [address] Dr. Dwight Waters UR MICRO IND INDICATED Normal [facility] Comment on above: Performed By: #### U RTPCR #### [facility] [address] [place] [address] Dr. Dwight Waters UROBILINOGEN Unable to perform testing due to color interference. Normal 0.2 - 1.0 [facility] Comment on above: Performed By: #### U RTPCR #### [facility] [address] [place] [address] Dr. Dwight Waters PROF 14(COMP METB)on 022 Albumin [Mass/Vol] 3.8 g/dL Normal 3.4-5.0 [facility] Comment on above: Performed By: #### C MP #### [facility] [address] [place] [address] Dr. Dwight Waters Albumin/Globulin [Mass ratio] 1.1 {ratio} Normal [facility] Comment on above: Performed By: #### C MP #### [facility] [address] [place] [address] Dr. Dwight Waters ALP [Catalytic activity/Vol] 106 U/L Normal 46-116 [facility] Comment on above: Performed By: #### C MP #### [facility] [address] [place] [address] Dr. Dwight Waters ALT [Catalytic activity/Vol] 30 U/L Normal 16-63 [facility] Comment on above: Performed By: #### C MP #### [facility] [address] [place] [address] Dr. Dwight Waters Anion gap [Moles/Vol] 11.7 mmol/L Normal [facility] Comment on above: Performed By: #### C MP #### [facility] [address] [address] [address] Dwight Waters AST [Catalytic activity/Vol] 16 U/L Normal 15-37 [facility] Comment on above: Performed By: #### C MP #### [facility] [address] [place] [address] Dr. Dwight Waters Bilirubin [Mass/Vol] 0.6 mg/dL Normal 0.2-1.0 [facility] Comment on above: Performed By: #### C MP #### [facility] [address] [place] [address] Dr. Dwight Waters Calcium [Mass/Vol] 9.1 mg/dL Normal 8.5-10.1 [facility] Comment on above: Performed By: #### C MP #### [facility] [address] [place] [address] Dr. Dwight Waters CO2 [Moles/Vol] 27.4 mmol/L Normal 21.0-32.0 [facility] Comment on above: Performed By: #### C MP #### [facility] [address] [place] [address] Dr. Dwight Waters Creatinine [Mass/Vol] 1.18 mg/dL Normal 0.70-1.30 [facility] Comment on above: Performed By: #### C MP #### [facility] [address] [place] [address] Dr. Dwight Waters EGFR-AF PUERTO RICAN >60 Normal >=60 [facility] Comment on above: Performed By: #### C MP #### [facility] [address] [place] [address] Dr. Dwight Waters EGFR-NON AF PUERTO RICAN >60 Normal >=60 [facility] Comment on above: Performed By: #### C MP #### [facility] [address] [place] [address] Dr. Dwight Waters Globulin (S) [Mass/Vol] 3.6 g/dL Normal [facility] Comment on above: Performed By: #### C MP #### [facility] [address] [place] [address] Dr. Dwight Waters Glucose [Mass/Vol] 192 mg/dL Critically high 74-106 T [facility] Comment on above: Performed By: #### C MP #### [facility] [address] [place] [address] Dr. Dwight Waters Potassium [Moles/Vol] 4.1 mmol/L Normal 3.5-5.1 [facility] Comment on above: Performed By: #### C MP #### [facility] [address] [place] [address] Dr. Dwight Waters Protein [Mass/Vol] 7.4 g/dL Normal 6.4-8.2 [facility] Comment on above: Performed By: #### C MP #### [facility] [address] [place] [address] Dr. Dwight Waters Sodium [Moles/Vol] 142 mmol/L Normal 136-145 [facility] Comment on above: Performed By: #### C MP #### [facility] [address] [place] [address] Dr. Dwight Waters Urea nitrogen [Mass/Vol] 17.0 mg/dL Normal 7.0-18.0 [facility] Comment on above: Performed By: #### C MP #### [facility] [address] [place] [address] Dr. Dwight Waters Urea nitrogen/Creatinine [Mass ratio] 14.4 mg/mg Normal [facility] Comment on above: Performed By: #### C MP #### [facility] [address] [place] [address] Dr. Dwight Waters URINE MICROSCOPIC ONLYon BACTERIA NONE SEEN Normal NONE SEEN [facility] Comment on above: Performed By: #### U RTPCR #### [facility] [address] [place] [address] Dr. Dwight Waters Bacteria identified Cx Nom (U) NOT INDICATED Normal [facility] Comment on above: Performed By: #### U RTPCR #### [facility] [address] [place] [address] Dr. Dwight Waters CAST NONE SEEN Normal NONE SEEN [facility] Comment on above: Performed By: #### U RTPCR #### [facility] [address] [address] [address] Dwight Waters Crystals LM Nom (Urine sed) NONE SEEN Normal NONE SEEN [facility] Comment on above: Performed By: #### U RTPCR #### [facility] [address] [place] [address] Dr. Dwight Waters Epithelial cells LM Ql (Urine sed) RARE Normal NONE SEEN /RARE [facility] Comment on above: Performed By: #### U RTPCR #### [facility] [address] [place] [address] Dr. Dwight Waters MUCOUS NONE SEEN Normal NONE SEEN [facility] Comment on above: Performed By: #### U RTPCR #### [facility] [address] [place] [address] Dr. Dwight Waters RBC (U) [#/Vol] /uL Abnormal 0-2 [facility] Comment on above: Performed By: #### U RTPCR #### [facility] [address] [place] [address] Dr. Dwight Waters WBC NONE SEEN Normal NONE SEEN [facility] Comment on above: Performed By: #### U RTPCR #### [facility] [address] [place] [address] Dr. Dwight Waters K (Potassium)on 01-06-2020 Potassium [Moles/Vol] 4.4 mmol/L Normal 3.7-5.3 [facility] Comment on above: Performed By: #### K #### [facility] [address] [place] [address] Computer Builder: Kehinde Woodward MD Potassiumon 01-06-2020 Potassium [Moles/Vol] 4.4 mmol/L 3.7 - 5.3 mmol/L [facility] Work Phone: Hemoglobin and Hematocrit, B bridget 10-24-2019 Hematocrit (Bld) [Volume fraction] 23.6 % Low 40.7 - 50.3 % [facility] Hemoglobin (Bld) [Mass/Vol] 7.3 g/dL Low 13 - 17 g/dL [facility] Interpretation and review of laboratory results Abnormal [place], [place] Hgb/Hcton 10-24-2019 Hematocrit (Bld) [Volume fraction] 23.6 % Low 40.7-50.3 [facility] Comment on above: Performed By: #### H H #### [facility] [address] [place] [address] Computer Builder: Kehinde Woodward MD Hemoglobin (Bld) [Mass/Vol] 7.3 g/dL Low 13.0-17.0 [facility] Comment on above: Performed By: #### H H #### [facility] [address] [place] [address] Computer Builder: Kehinde Woodward MD Hemoglobinon 08-27-2019 Hemoglobin (Bld) [Mass/Vol] 7.5 g/dL Low 13.0-17.0 [facility] Comment on above: Performed By: #### H GB #### [facility] [address] [place], [place] [id number] Computer Builder: Kehinde Woodward MD Hemoglobin (Bld) [Mass/Vol] 7.5 g/dL Low 13 - 17 g/dL [place], [place] Interpretation and review of laboratory results Abnormal [place] Hemoglobinon 08-08-2019 Hemoglobin (Bld) [Mass/Vol] 8.3 g/dL Low 13.0-17.0 [facility] Comment on above: Performed By: #### H GB #### [address] [place] [address] Computer Builder: Kehinde Woodward MD Hemoglobin (Bld) [Mass/Vol] 8.3 g/dL Low 13 - 17 g/dL [place] Interpretation and review of laboratory results Abnormal [place] Hemoglobinon 08-04-2019 Hemoglobin (Bld) [Mass/Vol] 8.0 g/dL Low 13.0-17.0 [facility] Comment on above: Performed By: #### H GB #### [facility] [address] [place] [address] Computer Builder: Kehinde Woodward MD Hemoglobin A1Con 08-03-2019 HbA1c (Bld) [Mass fraction] % Low 4.8-5.9 [facility] Comment on above: Result Comment: The ADA and AACC recommend providing the estimated average glucose result to permit better patient understanding of their HBA1c result. Performed By: #### G LYHGB #### [facility] [address] [place] [address] Computer Builder: Kehinde Woodward MD Glucose [Mass/Vol] mg/dL mg/dL [place], [place] Comment on above: The ADA and AACC rec ommend providing the estimated average glucose result to permit better patient understanding of their HBA1c result. HbA1c (Bld) [Mass fraction] % Low 4.8 - 5.9 % [place], [place] Interpretation and review of laboratory results Abnormal [place] Hemoglobinon 08-01-2019 Hemoglobin (Bld) [Mass/Vol] 8.1 g/dL Low 13.0-17.0 [facility] Comment on above: Performed By: #### H GB #### [facility] [address] [place] [address] Computer Builder: Kehinde Woodward MD Hemoglobin (Bld) [Mass/Vol] 8.1 g/dL Low 13 - 17 g/dL [place] Interpretation and review of laboratory results Abnormal [place] Hgb/Hcton 06-10-2019 Hematocrit (Bld) [Volume fraction] 24.3 % Low 40.7-50.3 [facility] Comment on above: Performed By: #### H H #### [facility] [address] [place] [address] Computer Builder: Kehinde Woodward MD Hemoglobin (Bld) [Mass/Vol] 7.4 g/dL Low 13.0-17.0 [facility] Comment on above: Performed By: #### H H #### [facility] [address] [place] [address] Computer Builder: Kehinde Woodward MD Hemoglobinon 06-01-2019 Hemoglobin (Bld) [Mass/Vol] 7.2 g/dL Low 13.0-17.0 [facility] Comment on above: Performed By: #### H GB #### [facility] [address] [place], [place] [id number] Computer Builder: Kehinde Woodward MD K (Potassium)on 01-14-2019 Potassium [Moles/Vol] 3.6 mmol/L Low 3.7-5.3 [facility] Comment on above: Performed By: #### K #### [facility] [address] [place], [place] [id number] Computer Builder: Kehinde Woodward MD Otheron 10-19-2018 IMPRESSION: 1. [...] characteristics determined by Toxicology Laboratory at [facility]. It has not been cleared or [...] Amitriptyline(50), Amphetamine(250), Atenolol(500), Barbiturates(1000), Benzoylecgonine(50), Buprenorphine(50), Bupropion(25), Caffeine(67337), Chlordiazepoxide(50), Chlorpheniramine(100), Chlorpromazine(50), Citalopram(100), Clonazepam(200), Cocaine(25), Codeine(200), [...] LAB, [facility] TOXICOLOGY SCREEN URINE - UD [facility] 10-12-2018 Drugs identified Screen Nom (U) For Medical Purposes Only, Non-forensic, screen results are presumptive. No confirmatory testing will follow. Invalid Interpretation Code LAB, [facility] Comment on above: This Liquid Chromato graphy Mass Spectrometry (LC/MS/MS) test was developed and its performance characteristics determined by Toxicology Laboratory at [facility]. It has not been cleared or [...] Amitriptyline(50), Amphetamine(250), Atenolol(500), Barbiturates(200), Benzoylecgonine(50), Buprenorphine(500), Bupropion(25), Caffeine(14700), Cannabinoids(THC)(50), Chlordiazepoxide(50), Chlorpheniramine(100), Chlorpromazine(50), Citalopram(100), Clonazepam(200), Cocaine(25), [...] 97.81 [degF] Steve Farrari MBBS Work Phone: [facility] 09-11-2023 10:31-0400 Diastolic blood pressure 66 mm[Hg] Stevemassiel Farrari MBBS Work Phone: [facility] 09-11-2023 10:31-0400 Heart rate 70 /min Steve Farrari MBBS Work Phone: [facility] 09-11-2023 10:31-0400 Respiratory rate 20 /min Steve Farrari MBBS Work Phone: [facility] 09-11-2023 10:31-0400 SaO2% (BldA) [Mass fraction] 91 % Steve Farrari MBBS Work Phone: [facility] 09-11-2023 10:31-0400 Systolic blood pressure 129 mm[Hg] Stevemassiel Farrari MBBS Work Phone: [facility] 09-10-2023 15:50-0400 Body mass index (BMI) [Ratio] 31.99 kg/m2 Stevemassiel Farrari MBBS Work Phone: [facility] 09-10-2023 15:50-0400 Body weight 92.67 kg Steve Yeison MBBS Work Phone: [facility] 09-02-2023 07:32-0400 Body height 170.2 cm Steve Yeison MBBS Work Phone: [facility] 08-28-2023 13:33-0400 Body height 170.2 cm Steve Yeison MBBS Work Phone: [facility] 08-28-2023 13:33-0400 Body mass index (BMI) [Ratio] 32.12 kg/m2 Steve Yeison MBBS Work Phone: [facility] 08-28-2023 13:33-0400 Body temperature 97.3 [degF] Steve Yeison MBBS Work Phone: [facility] 08-28-2023 13:33-0400 Body weight 93.03 kg Steve Yeison MBBS Work Phone: [facility] 08-28-2023 13:33-0400 Diastolic blood pressure 41 mm[Hg] Steve Yeison MBBS Work Phone: [facility] 08-28-2023 13:33-0400 Heart rate 116 /min Steve Yeison MBBS Work Phone: [facility] 08-28-2023 13:33-0400 Systolic blood pressure 106 mm[Hg] Steve Yeison MBBS Work Phone: [facility] 06-12-2023 14:50-0400 Body mass index (BMI) [Ratio] 33.8 kg/m2 Rebeca Olsen MAIL CLERK-[employer] G[employer]ER Work Phone: [facility] 06-12-2023 14:50-0400 Body temperature 97.3 [degF] Rebeca Olsen MAIL CLERK-S[employer] GATHERER Work Phone: [facility] 06-12-2023 14:50-0400 Body weight 97.89 kg Rebeca Olsen MAIL CLERK-S[employer] GATHERER Work Phone: [facility] 06-12-2023 14:50-0400 Diastolic blood pressure 77 mm[Hg] Rebeca Olsen MAIL CLERK-S[employer] GATHERER Work Phone: [facility] 06-12-2023 14:50-0400 Heart rate 76 /min Rebeca Olsen MAIL CLERK-SAP GATHERER Work Phone: [facility] 06-12-2023 14:50-0400 Systolic blood pressure 146 mm[Hg] Rebeca Olsen MAIL CLERK-SAP GATHERER Work Phone: [facility] 01-16-2023 08:57-0500 Body height 170.2 cm [facility] Work Phone: [facility] 01-16-2023 08:57-0500 Body mass index (BMI) [Ratio] 33.66 kg/m2 [facility] Work Phone: [facility] 01-16-2023 08:57-0500 Body temperature 97.3 [degF] [facility] Work Phone: [facility] 01-16-2023 08:57-0500 Body weight 97.48 kg [facility] Work Phone: [facility] 01-16-2023 08:57-0500 Diastolic blood pressure 75 mm[Hg] [facility] Work Phone: [facility] 01-16-2023 08:57-0500 Heart rate 76 /min [facility] Work Phone: [facility] 01-16-2023 08:57-0500 Systolic blood pressure 142 mm[Hg] [facility] Work Phone: [facility] 09-10-2022 09:38-0400 Body height 170.2 cm Ryan Yepez MD Work Phone: [facility] 09-10-2022 09:38-0400 Body mass index (BMI) [Ratio] 33.67 kg/m2 Ryan Yepez MD Work Phone: [facility] 09-10-2022 09:38-0400 Body weight 97.52 kg Ryan Yepez MD Work Phone: [facility] 09-10-2022 09:38-0400 Diastolic blood pressure 83 mm[Hg] Ryan Yeepz MD Work Phone: [facility] 09-10-2022 09:38-0400 Heart rate 64 /min Ryan Yepez MD Work Phone: [facility] 09-10-2022 09:38-0400 SaO2% (BldA) [Mass fraction] 96 % Ryan Yepez MD Work Phone: [facility] 09-10-2022 09:38-0400 Systolic blood pressure 129 mm[Hg] Ryan Yepez MD Work Phone: [facility] 07-07-2022 13:48-0400 Diastolic blood pressure 76 mm[Hg] Ryan Yepez MD Work Phone: [facility] 07-07-2022 13:48-0400 Heart rate 82 /min Ryan Yepez MD Work Phone: [facility] 07-07-2022 13:48-0400 SaO2% (BldA) [Mass fraction] 96 % Ryan Yepez MD Work Phone: [facility] 07-07-2022 13:48-0400 Systolic blood pressure 141 mm[Hg] Ryan Yepez MD Work Phone: [facility] 06-27-2022 13:32-0400 Body height 170.2 cm Ryan Yepez MD Work Phone: [facility] 06-27-2022 13:32-0400 Body mass index (BMI) [Ratio] 34.24 kg/m2 Ryan Yepez MD Work Phone: [facility] 06-27-2022 13:32-0400 Body temperature 98.6 [degF] Ryan Yepez MD Work Phone: [facility] 06-27-2022 13:32-0400 Body weight 99.16 kg Ryan Yepez MD Work Phone: [facility] 06-27-2022 13:32-0400 Diastolic blood pressure 78 mm[Hg] Ryan Yepez MD Work Phone: [facility] 06-27-2022 13:32-0400 Heart rate 77 /min Ryan Yepez MD Work Phone: [facility] 06-27-2022 13:32-0400 SaO2% (BldA) [Mass fraction] 95 % Ryan Yepez MD Work Phone: [facility] 06-27-2022 13:32-0400 Systolic blood pressure 121 mm[Hg] Ryan Yepez MD Work Phone: [facility] 06-27-2022 10:52-0400 Body height 170.2 cm Rena Brewster RN [facility] 06-27-2022 10:52-0400 Body mass index (BMI) [Ratio] 34.46 kg/m2 Rena Brewster RN [facility] 06-27-2022 10:52-0400 Body temperature 98.2 [degF] Rena Brewster RN [facility] 06-27-2022 10:52-0400 Body weight 99.79 kg Rena Brewster RN [facility] 06-27-2022 10:52-0400 Diastolic blood pressure 73 mm[Hg] Rena Brewster RN [facility] 06-27-2022 10:52-0400 Heart rate 78 /min Rena Brewster RN [facility] 06-27-2022 10:52-0400 Respiratory rate 20 /min Rena Brewster RN [facility] 06-27-2022 10:52-0400 SaO2% (BldA) [Mass fraction] 97 % Rena Brewster RN [facility] 06-27-2022 10:52-0400 Systolic blood pressure 135 mm[Hg] Rena Brewster RN [facility] 06-12-2022 14:23-0400 Body mass index (BMI) [Ratio] 34.59 kg/m2 Steve Yeison MBBS Work Phone: [facility] 06-12-2022 14:23-0400 Body temperature 97 [degF] Steve Yeison MBBS Work Phone: [facility] 06-12-2022 14:23-0400 Body weight 100.2 kg Steve Yeison MBBS Work Phone: [facility] 06-12-2022 14:23-0400 Diastolic blood pressure 66 mm[Hg] Steve Yeison MBBS Work Phone: [facility] 06-12-2022 14:23-0400 Heart rate 63 /min Steve Yeison MBBS Work Phone: [facility] 06-12-2022 14:23-0400 Systolic blood pressure 133 mm[Hg] Steve Yeison MBBS Work Phone: [facility] 05-20-2022 15:21-0400 Body temperature 97.9 [degF] Gian Villatoro MD Work Phone: [facility] 05-20-2022 15:21-0400 Diastolic blood pressure 64 mm[Hg] Gian Villatoro MD Work Phone: 0(613)[phone] [address] 05-20-2022 15:21-0400 Heart rate 55 /min Gian Villatoro MD Work Phone: 4(458)504-533335 [address] 05-20-2022 15:21-0400 Respiratory rate 15 /min Gian Villatoro MD Work Phone: 8(851)232-699[address] [place] [address] 05-20-2022 15:21-0400 SaO2% (BldA) [Mass fraction] 95 % Gian Villatoro MD Work Phone: 2(694)349-915740 [place] [address] 05-20-2022 15:21-0400 Systolic blood pressure 145 mm[Hg] Gian Villatoro MD Work Phone: 8(457)383-495340 [place] [address] 05-19-2022 12:15-0400 Body mass index (BMI) [Ratio] 35.87 kg/m2 Gian Villatoro MD Work Phone: 6(627)807-736540 [place] [address] 05-19-2022 12:15-0400 Body weight 103.92 kg Gian Villatoro MD Work Phone: 5(113)050-580840 [place] [address] Comment on above: standing scale 05-16-2022 16:19-0400 Body height 170.2 cm Gian Villatoro MD Work Phone: 7(567)244-685940 [place] [address] 10-19-2018 08:44-0500 BMI (Body Mass Index) 26.58 kg/m2 [facility] Work Phone: 10-19-2018 08:44-0500 BP Diastolic 76 mm[Hg] [facility] Work Phone: 10-19-2018 08:44-0500 BP Systolic 144 mm[Hg] [facility] Work Phone: 10-19-2018 08:44-0500 Height 172.7 cm [facility] Work Phone: 10-19-2018 08:44-0500 Pulse (Heart Rate) 92 /min [facility] Work Phone: 10-19-2018 08:44-0500 Pulse Oximetry 99 % [facility] Work Phone: 10-19-2018 08:44-0500 Respiratory Rate 16 /min [facility] Work Phone: 10-19-2018 08:44-0500 Weight 79.29 kg [facility] Work Phone: 10-12-2018 09:50-0500 BMI (Body Mass Index) 27.24 kg/m2 [facility] Work Phone: 10-12-2018 09:50-0500 Body Temperature 98.6 [degF] [facility] Work Phone: 10-12-2018 09:50-0500 BP Diastolic 80 mm[Hg] [facility] Work Phone: 10-12-2018 09:50-0500 BP Systolic 157 mm[Hg] [facility] Work Phone: 10-12-2018 09:50-0500 Height 169.5 cm [facility] Work Phone: 10-12-2018 09:50-0500 Pulse (Heart Rate) 94 /min [facility] Work Phone: 10-12-2018 09:50-0500 Weight 78.29 kg Alfredito Restrepo [facility] Work Phone: Encounters Encounter Date Encounter Type Care Provider Facility Start: 11-03-2023 End: 11-03-2023 ambulatory ZULY TANNERLATISHAOmer Not Available Start: 10-06-2023 ambulatory Angel Carpio [facility] [place] Start: 10-06-2023 Patient encounter procedure Angel Carpio [facility] Pharm[facility] [place] Start: 09-29-2023 [facility] Start: 09-24-2023 [facility] [facility] Start: 09-23-2023 [facility] Start: 09-15-2023 [facility] Start: 08-28-2023 End: 09-11-2023 Evaluation and management of inpatient STEVE S YEISON Facility:[facility] Start: 08-28-2023 End: 09-11-2023 Evaluation and management of inpatient Steve S Yeison MBBS Work Phone: [id number] Start: 08-28-2023 ambulatory STEVE S YEISON Facility:[facility] Start: 08-28-2023 End: 08-28-2023 Office outpatient visit 25 minutes Steve S Yeison MBBS Work Phone: [facility] Comment on above: Immunosuppressed sta tus (Primary Dx); Kidney replaced by transplant; Aftercare following organ transplant; High risk medication use; Other general symptoms and signs; Abnormal blood chemistry; Hypertension secondary to other renal disorders Start: 08-19-2023 ambulatory Meka rueda [facility] Outpatient [facility] [place] Start: 08-19-2023 Patient encounter procedure Meka Munoz [facility] Outpatient RX [place] Start: 06-12-2023 ambulatory REBECA Fisher ty:[facility] Start: 06-12-2023 End: 06-12-2023 Office outpatient visit 25 minutes Steve S Yeison MBBS Work Phone: [facility] Comment on above: 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) Start: 06-10-2023 ambulatory Maren Bar RPh,PharmD Pharmacy Outpatient RX [place] Start: 06-10-2023 Patient encounter procedure Maren Bar RPh,PharmD Pharmacy Outpatient RX [place] Start: 05-26-2023 [facility] Start: 04-28-2023 End: 04-29-[address] DOCTOR EVANS Facility:[facility]1 Start: 04-13-2023 End: 04-13-2023 ambulatory [facility] Start: 03-12-2023 ambulatory Angel Fete RPh,PharmD Pharmacy Outpatient RX [place] Start: 03-12-2023 Patient encounter procedure Angel Fete RPh,PharmD Pharmacy Outpatient RX [place] Start: 03-10-2023 ambulatory Angel Fete RPh,PharmD Pharmacy Outpatient RX [place] Start: 03-10-2023 Patient encounter procedure Angel Fete RPh,PharmD Pharmacy Outpatient RX [place] Start: 03-02-2023 End: 03-03-[address] DOCTOR EVANS Facility:[facility] Start: 01-16-2023 [facility] Start: 01-16-2023 End: 01-16-2023 Office outpatient visit 25 minutes Daisha Max DO Work Phone: [facility] Comment on above: Abnormal blood [...] MD Work Phone: [facility] [place] Comment on above: BPH with obstruction /lower urinary tract symptoms (Primary Dx); Encounter for screening for malignant neoplasm of prostate Start: 08-28-2022 End: 08-29-2022 ambulatory ROB BRUNO Facility:[facility] Start: 08-14-2022 End: 08-15-[address] DOCTOR EVANS Facility:[facility] Start: 07-07-2022 End: 07-07-2022 Patient encounter procedure Ryan Yepez MD Work Phone: [facility] [place] Comment on above: Other hydronephrosis (Primary Dx); [...] MD Work Phone: [facility] [place] Comment on above: Other hydronephrosis (Primary Dx) [...] Phone: [facility] Comment on above: Immunosuppressed sta tus (Primary [...] ALEXANDER Facility:[facility]1 Start: 03-14-2022 ambulatory Comfort Rivera [facility] Work Phone: Pharmacy Outpatient RX [place] Start: 03-14-2022 Patient encounter procedure Comfort Chinedu Rivera [facility] Work Phone: Pharmacy Outpatient RX [place] Start: 06-14-2021 End: 06-14-2021 ambulatory Comfort Chinedu Rivera [facility] Work Phone: [facility] Start: 06-14-2021 Patient encounter procedure Comfort Chinedu Rivera [facility] Work Phone: [facility] Start: 01-20-2020 End: 01-27-2020 Patient encounter procedure PEPE CASE Facility:[facility] Start: 01-06-2020 End: 01-07-2020 Patient encounter procedure [facility] Start: 01-06-2020 End: 01-06-2020 Subsequent hospital visit by physician MASHA [facility] Start: 10-24-2019 End: 10-25-2019 [facility] Start: 10-24-2019 End: 10-24-2019 Subsequent hospital visit by physician MASHA [facility] Start: 08-27-2019 End: 08-28-2019 Patient encounter procedure [facility] Start: 08-27-2019 End: 08-27-2019 Subsequent hospital visit by physician [facility] Start: 08-08-2019 End: 08-09-2019 Patient encounter procedure ROB PATINO [facility] Start: 08-08-2019 End: 08-08-2019 Subsequent hospital visit by physician MASHA [facility] Start: 08-03-2019 End: 08-04-2019 Patient encounter procedure [facility]mber [facility] Start: 08-03-2019 End: 08-03-2019 Subsequent hospital visit by physician MASHA [facility] Start: 08-01-2019 End: 08-02-2019 Patient encounter procedure ROBAmber [facility] Start: 08-01-2019 End: 08-01-2019 Subsequent hospital visit by physician [facility] Start: 06-10-2019 End: 06-11-2019 Patient encounter procedure RENA GUDINO [facility] Start: 06-01-2019 End: 06-02-2019 [facility] Start: 01-14-2019 End: 01-15-2019 Patient encounter procedure RENA GUDINO [facility] Start: 11-17-2018 End: 11-17-2018 Patient encounter procedure Melania Pantojaman [facility] Pre Transplant Office Comment on above: Social Work Follow-u p Start: 10-19-2018 End: 10-19-2018 Patient encounter [facility] Pre Transplant Office Comment on [...] Start: 10-13-2018 End: 10-13-2018 Patient encounter procedure [facility] Comment on above: Reschedule Outside Medical Allan rds Request Start: 10-12-2018 End: 10-12-2018 Patient encounter procedure Sophie Raeann [facility] Pre Transplant Office Comment on above: [...] Start: 10-05-2018 Patient encounter status Comfort Rivera [facility] Work Phone: [facility] Procedures Date Procedure Procedure Detail Performing [...] AURIS SCREEN BY PCR Carol Ann Capps MAIL CLERK-MOTION PICTURE EQUIPMENT MACHINIST Work Phone: Start: 08-28-2023 CBC AND ELECTRONIC [...] above: Performed By: #### C MP #### [facility] [address] [place] [address] Dr. Dwight Waters Start: 07-07-2022 Rmvl nfros [...] recipient S/P liver trans plant Comfort Rivera [facility] Work Phone: Start: 04-08-2020 H/O: liver recipient Liver tra nsplant recipient Comfort Rivera [facility] Work Phone: Start: 01-06-2020 Potassium serum plasma/whole [...] renal transplant -donor kidney transplant recipient Comfort [facility] Work Phone: Start: 06-10-2019 HEMOGLOBIN AND HEMAT OCRIT, BLOOD ROB KASMANI Start: 06-01-2019 Blood count hemoglobin ROB KASMANI Start: 03-22-2019 Lipid 1996 panel - S fabricio or Plasma Comfort Rivera [facility] Work Phone: Start: 01-14-2019 Potassium serum plasma/whole [...] End: 10-12-2018 Antibody cytomegalovirus cmv Yovani Mejias [employer] Work Phone: Start: 10-12-2018 End: 10-12-2018 Antibody dann-montes eb virus viral capsid vca Yovani Mejias [employer] Work Phone: Start: 10-12-2018 End: 10-12-2018 Antibody herpes smplx type 1 Yovani Orr Work Phone: Start: 10-12-2018 End: 10-12-2018 Antibody rubeola Yovani Mejias [employer] Work Phone: Start: 10-12-2018 End: 10-12-2018 Antibody varicella-zoster Yovani Mejias [employer] Work Phone: Start: 10-12-2018 End: 10-12-2018 Assay of ethanol Yovani Mejias [employer] Work Phone: Start: 10-12-2018 End: 10-12-2018 Assay of ferritin Yovani Orr Work Phone: Start: 10-12-2018 End: 10-12-2018 Assay of iron Yovani Mejias [employer] Work Phone: Start: 10-12-2018 End: 10-12-2018 Assay of parathormone Yovani Mejias [employer] Work Phone: Start: 10-12-2018 End: 10-12-2018 Assay of phosphatase alkaline Yovani Mejias [employer] Work Phone: Start: 10-12-2018 End: 10-12-2018 Bilirubin total Yovani Orr Work Phone: Start: 10-12-2018 End: 10-12-2018 Calcium total Yovani Mejias [employer] Work Phone: Start: 10-12-2018 End: 10-12-2018 CBC, EDIF, PLATELET Yovani RuizJoroto Work Phone: Start: 10-12-2018 End: 10-12-2018 Creatinine blood Yovani Orr Work Phone: Start: 10-12-2018 End: 10-12-2018 Drug screening cannabinoids natural Yovani Mjeias [employer] Work Phone: Start: 10-12-2018 End: 10-12-2018 Hepatitis a antibody haab Yovani Mejias [employer] Work Phone: Start: 10-12-2018 End: 10-12-2018 Hepatitis b core antibody hbcab total Yovani Mejias [employer] Work Phone: Start: 10-12-2018 End: 10-12-2018 Hepatitis b surf antibody hbsab Yovani Mejias [employer] Work Phone: Start: 10-12-2018 End: 10-12-2018 Hepatitis c antibody Yovani Mejias [employer] Work Phone: Start: 10-12-2018 End: 10-12-2018 Iaad ia hepatitis b surface antigen Yovani Mejias [employer] Work Phone: Start: 10-12-2018 End: 10-12-2018 Iaad ia hiv-1 ag w/hiv-1 & hiv-2 antbdy single Yovani RuizJoroto Work Phone: Start: 10-12-2018 End: 10-12-2018 PSA screening Yovani Mejias [employer] Work Phone: Start: 10-12-2018 End: 10-12-2018 Thromboplastin time partial plasma/whole blood Yovani Orr Work Phone: Start: 10-12-2018 End: 10-12-2018 Assay of ethanol Yovani Mejias [employer] Work Phone: Start: 10-12-2018 End: 10-12-2018 Drug/substance definitive qual/quant nos 7/more Yovani RuizJoroto Work Phone: Start: 10-12-2018 End: 10-12-2018 Protein [...] 08-31-2024 Screening for malignant neoplasm of lung [facility] Start: 06-17-2024 End: 06-17-2024 ambulatory [facility] Start: 06-17-2024 End: 06-17-2024 Patient encounter procedure [facility] Start: 03-22-2024 Fasting lipid profile LIPID SCREENING [facility] Start: 03-22-2024 Lipid panel [facility] Start: 01-15-2024 End: 01-15-2024 ambulatory [facility] Start: 01-15-2024 End: 01-15-2024 Patient encounter procedure [facility] Start: 12-08-2023 End: 09-07-2024 CT Chest WO contrast [facility] Work Phone: Start: 09-23-2023 End: 09-23-2023 ambulatory [facility] Start: 09-23-2023 End: 09-23-2023 Telemedicine consultation with patient 09/23/2023 4:00 PM EDT Telemedicine [facility] [address] [place] [address] Hakeem Alamo MD [address] [place] [address] Infectious Diseases Care [facility] Start: 09-15-2023 End: 09-10-2024 ITRACONAZOLE LEVEL [facility] Start: 08-25-2023 End: 08-25-2024 ALLOSCREEN RECIPIENT (POST TX PRA) ALLOSCREEN RECIPIENT (POST TX PRA) Lab Routine Kidney replaced by transplant Aftercare following organ transplant Immunosuppressed status High risk medication use Other general symptoms and signs Abnormal blood chemistry Expected: 08/25/2023, Expires: 08/25/2024 [facility] Comment on above: Expected: 08/25/2023, Expires: Start: 07-31-2023 Influenza vaccination [facility] Start: 06-12-2023 End: 06-12-2023 Patient encounter procedure 06/12/2023 Office Visit Transplant Surgery Steve Latham MBBS [address] [place] [address] [facility] Start: 03-11-2023 End: 03-11-2023 Telemedicine consultation with patient 03/11/2023 Telemedicine Urology Ryan Yepez MD [address] [facility] [address] [place] [address] [facility] [place] Start: 01-16-2023 End: 01-16-2023 Patient encounter procedure 01/16/2023 Office Visit Transplant Surgery [facility] Start: 10-31-2022 End: 10-31-2022 Patient encounter procedure 10/31/2022 Office Visit Transplant Surgery Steve Latham MBBS [address] [place] [address] [facility] Start: 09-10-2022 End: 09-10-2023 PSA screening PSA, SCREENING Lab Routine BPH with obstruction/lower urinary tract symptoms Encounter for screening for malignant neoplasm of prostate Expected: 09/10/2022 (Approximate), Expires: 09/10/2023 [facility] Comment on above: Expected: 09/10/2022 (Approximate), Expi res: 09/10/2023 Start: 08-11-2022 End: 08-11-2022 Patient encounter procedure 08/11/2022 Office Visit UrologRyan Batista MD [address] [place] [address] [address] [place] [id number] [facility] [place] Start: 07-31-2022 Influenza vaccination [facility] Start: 07-07-2022 End: 07-07-2022 Patient encounter procedure 07/07/2022 Office Visit Ryan Webster MD [address] [place] [address] [address] [place] [address] [facility] [place] Start: 07-07-2022 End: 07-07-2023 FLUORO IMAGING FOR UROLOGY [facility] Comment on above: Expected: 07/07/2022, Expires: 3 1 Occurrences starti ng 07/07/2022 until 07/07/2022 Start: 06-27-2022 End: 06-27-2022 Patient encounter procedure 06/27/2022 Office Visit Ryan Webster MD [address] [place] [address] [address] [place] [id number] [facility] [place] Start: 06-27-2022 End: 06-27-2023 Basic metabolic 2000 panel - Serum or Plasma BASIC METABOLIC PANEL Lab Routine Other hydronephrosis Expected: 06/27/2022, Expires: 06/27/2023 [facility] Comment on above: Expected: 06/27/2022, Expires: 3 Start: 06-27-2022 End: 06-27-2022 Patient encounter procedure 06/27/2022 Appointment Computerized Tomography Scan Ryan Yepez MD [address] [facility] [address] [place] [address] Department of Radiology Start: 06-15-2022 End: 05-16-2023 CT Abdomen and Pelvis WO contrast CT ABDOMEN/PELVIS WITHOUT CONTRAST Imaging Routine FAYE (acute kidney injury) Expected: 06/15/2022 (Approximate), Expires: 05/16/2023 [facility] Work Phone: Comment on above: Expected: 06/15/2022 (Approximate), Expi res: 05/16/2023 Start: 06-12-2022 End: 06-12-2022 Patient encounter procedure 06/12/2022 Office Visit Transplant Surgery Steve Latham MBBS [address] [place] [address] [facility] Start: 06-11-2022 End: 06-11-2023 BK VIRUS DNA QN, PCR, PLASMA BK VIRUS DNA QN, PCR, PLASMA Lab Routine Kidney replaced by transplant Liver replaced by transplant Abnormal blood chemistry Expected: 06/11/2022, Expires: 06/11/2023 [facility] Comment on above: Expected: 06/11/2022, Expires: Start: 06-04-2022 End: 06-04-2022 Patient encounter procedure 06/04/2022 Office Visit Interventional Radiology [facility] Start: 10-18-2021 End: 10-18-2021 Patient encounter procedure 10/18/2021 Office Visit Transplant Surgery Steve Latham MBBS [address] [place] [address] [facility] Start: 07-31-2021 Influenza vaccination INFLUENZA VACCINE (#1) [facility] Start: 07-26-2021 End: 07-26-2021 Patient encounter procedure 07/26/2021 Office Visit Transplant Surgery [facility] Start: 2021 Prostate specific antigen measurement [facility] Start: 2021 Screening for malignant neoplasm of lung LUNG CANCER SCREENING [facility] Start: 2021 Zoster vaccine hzv live for subcutaneous use ZOSTER (SHINGLES) VACCINE (1 of 2) [facility] Start: 09-20-2020 Colonoscopy COLORECTAL CANCER SCREENING DISCUSSION [facility] Start: 09-20-2020 Screening for malignant neoplasm of colon [facility] Start: 07-31-2019 Influenza vaccination Flu vaccine (#1) [place], [place] Start: 05-22-2019 Annual Wellness Visit (AWV) Annual Wellness Visit (AWV) [place], [place] Start: 04-18-2019 End: 10-19-2019 Ultrasonography of abdomen US ABDOMEN RUQ/LIVER/GB Routine Cirrhosis of liver without ascites, unspecified hepatic cirrhosis type Expected: 04/18/2019 (Approximate), Expires: 10/19/2019 [facility] Work Phone: Comment on above: Expected: 04/18/2019 (Approximate), Expi res: 10/19/2019 Start: 01-25-2019 End: 01-25-2019 Ambulatory 01/25/2019 Office Visit Gastroenterology Christin Elizabeth, MAIL CLERK-SAP GATHERER [address] [place] [address] Division of Gastroenterology and Hepatology Gavin Start: 11-19-2018 End: 11-19-2018 Ambulatory 11/19/2018 Appointment Pulmonary Diagnostics [facility] Start: 11-19-2018 End: 11-19-2018 [facility]ulatory [facility] Start: 10-19-2018 End: 10-19-2018 Ambulatory Ultrasound Jakob Start: 10-12-2018 End: 10-12-2019 Hemoglobin A1c/Hemoglobin.total mass fraction (Bld) HEMOGLOBIN A1C Routine Alcoholic cirrhosis, unspecified whether ascites present Pre-transplant evaluation for liver transplant Expected: 10/12/2018, Expires: 10/12/2019 [facility] Work Phone: Comment on above: Expected: 10/12/2018, Expires: 9 Start: 10-12-2018 End: 10-12-2019 TYPE AND SCREEN - NOT FOR TRANSFUSION TYPE AND SCREEN - NOT FOR TRANSFUSION Routine Alcoholic cirrhosis, unspecified whether ascites present Pre-transplant evaluation for liver transplant Expected: 10/12/2018, Expires: 10/12/2019 [facility] Work Phone: Comment on above: Expected: 10/12/2018, Expires: 9 Start: 07-31-2018 Influenza vaccination INFLUENZA VACCINE (#1) [facility] Work Phone: Start: 2011 Fasting lipid profile LIPID SCREENING [facility] Work Phone: Start: 2011 Lipid screen Lipid screen [place], [place] Start: 1990 DTaP/Tdap/Td vaccine (1 - Tdap) DTaP/Tdap/Td vaccine (1 - Tdap) [place], [place] Start: 1990 Hepatitis B Vaccine (1 of 3 - Risk Recombivax 3-dose series) Hepatitis B Vaccine (1 of 3 - Risk Recombivax 3-dose series) [place], [place] Start: 1990 Third diphtheria, tetanus and acellular pertussis (DTaP) vaccination [facility] Start: 1990 Zoster vaccine hzv live for subcutaneous use ZOSTER (SHINGLES) VACCINE (1 of 2) [facility] Start: 1990 [facility] Start: 1989 Tetanus vaccination TETANUS [facility] Start: 1986 HIV screen HIV screen [place], [place] Start: 02-17-1984 HIV screening HIV SCREENING DISCUSSION [facility] Work Phone: Start: 1983 COVID-19 VACCINE (1) COVID-19 VACCINE (1) [facility] Start: 1982 DTaP/Tdap/Td vaccine (1 - Tdap) DTaP/Tdap/Td vaccine (1 - Tdap) [place], [place] Start: 1977 Pneumococcal 0-64 years Vaccine (1 of 3 - PCV13) Pneumococcal 0-64 years Vaccine (1 of 3 - PCV13) [place], [place] Start: 1977 PNEUMOCOCCAL VACCINE SERIES (1 - PCV) PNEUMOCOCCAL VACCINE SERIES (1 - PCV) [facility] Start: 1977 [facility] Start: 02-17-1976 COVID-19 VACCINE (#1) COVID-19 VACCINE (#1) [facility] Start: 02-17-1976 [facility] Start: 1971 COVID-19 VACCINE (#1) COVID-19 VACCINE (#1) [facility] Start: 1971 Hepatitis B vaccination HEP B VACCINE (1 of 3 - 3-dose series) [facility] Start: 1971 Tetanus vaccination [facility] BK VIRUS DNA QN, PCR , PLASMA BK VIRUS DNA QN, PCR, PLASMA Lab Routine Kidney replaced by transplant Liver replaced by transplant Abnormal blood chemistry 06/12/2022 3:38 PM EDT [facility] CALCULI, URINARY (KIDNEY STONE) CALCULI, URINARY (KIDNEY STONE) Fluids Routine 05/19/2022 8:16 AM EDT [facility] Work Phone: CANNABINOIDS, QUANT (URINE)THC CONFIRMATION CANNABINOIDS, QUANT (URINE)THC CONFIRMATION Routine Alcoholic cirrhosis, unspecified whether ascites present ESRD (end stage renal disease) on dialysis Pre-transplant evaluation for liver transplant 10/12/2018 12:57 PM EST [facility] Work Phone: End: 09-10-2024 CHEM 6 (LYTES, BUN CREA) [facility] EBV VCA IGG AB EBV VCA IGG AB R outine Alcoholic cirrhosis, unspecified whether ascites present ESRD (end stage renal disease) on dialysis Pre-transplant evaluation for liver transplant 10/12/2018 12:57 PM [facility] Work Phone: Fungus identified in Unspecified specimen by Culture [facility] HLA TYPING (SOLID ORGAN) HLA TYPING (SOLID ORGAN) Routine Alcoholic cirrhosis, unspecified whether ascites present ESRD (end stage renal disease) on dialysis Pre-transplant evaluation for liver transplant 10/12/2018 12:57 PM [facility] Work Phone: HSV 1 AND 2 IGG ANTIBODY HSV 1 AND 2 IGG ANTIBODY Routine Alcoholic cirrhosis, unspecified whether ascites present ESRD (end stage renal disease) on dialysis Pre-transplant evaluation for liver transplant 10/12/2018 12:57 PM [facility] Work Phone: 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 specific culture [facility] PLACEMENT NEPHROSTOM Y CATHETER PERCUTANEOUS W/ IMAGE GUIDANCE PLACEMENT NEPHROSTOMY CATHETER PERCUTANEOUS W/ IMAGE GUIDANCE Imaging Routine Hydronephrosis due to obstruction of ureteral orifice FAYE (acute kidney injury) 05/17/2022 11:08 AM EDT [facility] NE POST VOID RESIDUAL NE POST VO ID RESIDUAL NE - OFFICE PERFORMED Routine BPH with obstruction/lower urinary tract symptoms Ordered: 09/10/2022 [facility] Comment on above: Ordered: 09/10/2022 PTH INTACT PTH INTACT Routi ne Alcoholic cirrhosis, unspecified whether ascites present ESRD (end stage renal disease) on dialysis Pre-transplant evaluation for liver transplant 10/12/2018 12:57 PM [facility] Work Phone: RUBEOLA IGG AB (IMMU NE STATUS) RUBEOLA IGG AB (IMMUNE STATUS) Routine Alcoholic cirrhosis, unspecified whether ascites present ESRD (end stage renal disease) on dialysis Pre-transplant evaluation for liver transplant 10/12/2018 12:57 PM [facility] Work Phone: End: 09-10-2024 TACROLIMUS LEVEL, TROUGH (PRE DRUG LEVEL) [facility] VARICELLA IGG AB (IM M STATUS) VARICELLA IGG AB (IMM STATUS) Routine Alcoholic cirrhosis, unspecified whether ascites present ESRD (end stage renal disease) on dialysis Pre-transplant evaluation for liver transplant 10/12/2018 12:57 PM EST [facility] Work Phone: Payers Date Payer Category Payer Unknown [id number] 2019 Unknown [facility] [id number] 2019-Present [id number] [id number] 2018 Medicaid MEDICAID [facility] DEPT OF JOB xxxxxxxxxxxx 2018-Present [phone] [address] [place] [address] xxxxxxxxxxxx [id number] 2018 Medicaid MEDICAID MEDICAI D [id number] 2018-Present [address] [place] [address] [id number] 2018 Medicaid [id number] 2018 Medicare MEDICARE MEDICAR E PART A AND B xxxxxxxxxxx 2018-Present [phone] [address] [address] [place] [address] xxxxxxxxxxx [id number] 2018 Medicare [id number] 2018 Medicare MEDICARE MEDICAR E A AND B [id number] 2018-Present [address] [place] [address] [id number] .[id number] 2018 Medicare 1.2.840.121342. 1.13.172.2.7.3 .699946.315 1971 Unknown [id number] 2.16.840.1.723143.3.579.2.173 1971 Unknown [id number] 2.16.840.1.640345.3.579.2.173 1971 Unknown [id number] 2.16.840.1.216103.3.579.2.173 1971 Unknown [id number] 2.16.840.1.759528.3.579.2.173 1971 Unknown [id number] 2.16.840.1.131600.3.579.2.173 1971 Unknown [id number] 2.16.840.1.941007.3.579.2.173 1971 Unknown [id number] 2.16.840.1.302536.3.579.2.173 1971 Unknown [id number] 2.16.840.1.097372.3.579.2.173 1971 Unknown [id number] 2.16.840.1.466692.3.579.2.647 1971 Unknown [id number] 2.16.840.1.346976.3.579.2.593 1971 Unknown [id number] 2.16.840.1.196180.3.579.2.593 1971 Unknown [id number] 2.16.840.1.154514.3.579.2.593 1971 Unknown [id number] 2.16.840.1.603863.3.579.2.593 1971 Unknown [id number] 2.16.840.1.831977.3.579.2.593 1971 Unknown [id number] 2.16.840.1.976332.3.579.2.593 1971 Unknown [id number] 2.16.840.1.872304.3.579.2.593 1971 Unknown [id number] 2.16.840.1.547654.3.579.2.593 1971 Unknown [id number] 2.16.840.1.245805.3.579.2.593 1971 Unknown [id number] 2.16.840.1.758051.3.579.2.593 1971 Unknown [id number] 2.16.840.1.507333.3.579.2.593 1971 Unknown [id number] 2.16.840.1.959114.3.579.2.593 1971 Unknown [id number] 2.16.840.1.241937.3.579.2.593 1971 Unknown [id number] 2.16.840.1.830313.3.579.2.593 1971 Unknown [id number] 2.16.840.1.514860.3.579.2.593 1971 Unknown [id number] 2.16.840.1.723794.3.579.2.594 1971 Unknown [id number] 2.16.840.1.646411.3.579.2.594 1971 Unknown [id number] 2.16.840.1.226318.3.579.2.594 1971 Unknown [id number] 2.16.840.1.433881.3.579.2.594 1971 Unknown [id number] 2.16.840.1.241698.3.579.2.594 1971 Unknown [id number] 2.16.840.1.013037.3.579.2.594 1971 Unknown [id number] 2.16.840.1.729790.3.579.2.594 1971 Unknown [id number] 2.16.840.1.641905.3.579.2.594 1971 Unknown [id number] 2.16.840.1.811702.3.579.2.594 1971 Unknown [id number] 2.16.840.1.832059.3.579.2.125 9 1958 Medicaid [id number] 1958 Medicare [id number] Social History Date Type Detail Facility Start: 07-19-2018 End: 10-19-2018 Tobacco smoking status NHIS Former smoker [facility] Start: 07-19-1988 End: 05-14-2018 History of tobacco use Current smoker [facility] Work Phone: Start: 07-19-1988 End: 05-14-2018 History of tobacco use Cigarette Smoker [facility] Work Phone: Start: 10-19-2018 End: 09-26-2023 Cigarettes smoked current (pack per day) - Reported [facility] Work Phone: End: 07-19-1994 History of tobacco use Chews Tobacco [facility] Work Phone: Start: 1970 Sex Assigned At Not on file O [facility] Work Phone: Start: 11-03-2018 Alcohol intake Current non-dr director trust of alcohol (finding) [place], [place] Start: 06-22-2018 Alcohol Comment Hx of alcoholism [place], [place] Start: 11-03-2018 End: 09-26-2023 Alcohol intake No [place], [place] Start: 07-19-2018 Tobacco use and exposure Former user [facility] Start: 09-06-2020 End: 09-26-2023 Alcohol intake Ex-drinker (finding) [facility] Start: 07-19-2018 Alcohol Comment stopped 05/14/2018 [facility] Start: 05-05-2022 End: 01-16-2023 Exposure to SARS-CoV-2 (event) Not sure [facility] Start: 07-07-2018 Gender identity Identifies as male gender (finding) [facility] Start: 01-16-2022 Sexual orientation Heterosexual (scooby kc) [facility] Medical Equipment Procedure Code Equipment Code Equipment Original Text Equipment Identifier Dates [id number] Start: 05-23-2020 [id number] Start: 04-12-2020 [id number], [id number] FDA Start: 05-17-2022 Comment on above: Description: Implant time-out completed by intra-procedural staff including this RN, electronic systems technician, and performing physician. The following was [...] ; Prograf 0.2 MG Contact Info: Specialty ([place]) [phone] [facility] [phone] [facility] [phone] [facility] [phone] Bedside Delivery ([facility]) [phone] [facility] RX OUTREACH ADVANCED: Call Information: Date and Time of Contact: 10/23/2023 2:00 PM Method of Contact: By Phone Contact Type: Prescriptions Contactor: [facility] Contactee: Patient Contact Outcome: Left message and Call back later Shipping/Pickup: Medication Name: Mycophenolate 360mg and Prograf 0.2mg Contact Info: Specialty ([place]) [phone] [facility] [phone] [facility] [phone] [facility] [phone] Bedside Delivery ([facility]) [phone] documented [facility] Miscellaneous Notes Pt discharged [...] the oxygen during the night. pt will pick out hand his oxygen from [employer] [facility], 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 This [...] Patient seen ambulating in the velazquez with RESIDENT ASSOCIATE. Patient was mildly short of breath on [...] & HR 114. Messaged Mainor Loomis, via [employer] secure chat, Temp 100.8. His tylenol order [...] short period of time. 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 Episode of [...] Critical Care Medicine Message Mainor Loomis, via [employer] secure chat, Good evening, just an FYI, [...] short period of time. 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 This morning, [...] [address] Loera here also (tile roofer) Dr. Diaz aware of pt's increased oxygen [...] Medicine-Pediatrics, PGY-2 Mr. Styles was admitted to [address] [place] [address]. On admission to [facility], from home a [...] station when available. documented in this encounter [facility] 09-11-2023 History of Present illness Narrative Provided follow-up emotional and spiritual support. Patient shared about rosemary of discharge and looking forward to seeing family Inspector Wreath provided: - Supportive presence - Active listening - Validation of feelings/emotions Patient encouraged to request a vp sales as needed. Chaplains are available in-house 24 hours a day and 7 days a week. For urgent matters in [facility], please page [phone]. If the request is not urgent, please enter a consult. Consults are responded to within 24 hours. Senior Staff Inspector Wreath Angie Singh Mdiv, [facility] Kirk [phone] [email or web address] 22/06 On-call Kirk: [phone] 22/06 Pager ,[facility], and Brock Maciel Pager [phone] 09/11/23 5652 Clinical Encounter Type Visited With Patient Visit Type Follow-up Pastoral Time Spent 15 min Referral Other (See Comment) (rounding) Spiritual Assessment Spiritual Observation Spirituality helpful Emotional Observation Coping well Hope Observation Specific hope focus Support Observation By Family Interventions Provided Active listening;Supportive presence Facilitated Verbalization of feelings Explored Expectations Information Services Manager Education Information Services Manager Service Available Yes Educated Patient Plan of Care Continue Visiting PRN Images from the original note were not included. [facility] ([facility]) Note: Non-Verbal Med Rec [facility] received the following discharge prescription(s): Total cost is $0. I have reviewed the Discharge Rx Reconciliation Report. The discharge prescription(s) will be delivered to the patient on 09/11/2023. Dimitrios Gurrola RPh,PharmD Specialty ([place]) [phone] [facility] [phone] [facility] Bedside Delivery [phone] [facility] [phone] [facility] Bedside Delivery [phone] [place] [phone] [facility] Bedside Delivery [phone] [place] [phone] [place] [phone] Internal Medicine Daily Progress Note Patient: George Styles, 1970, [id number] Physician: Evan Kelly MD, PGY-1, TM1 service Subjective/Interval History: Patient continues to require oxygen overnight for desaturations. With insurance limitations, only accepting agency to provide home oxygen backed out. After calling them to discuss, Lynn stated she would be willing to have patient drive to their facility to pick out hand supplies, however they close at 5pm. 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 His [place] kidney disease was noted to be presumed [...] losartan 50mg BID CAD: non-obstructive CAD on [facility] 2018. - continue home aspirin 81mg daily, [...] CREATSERUM 1.17 04/28/2023 CREATSERUM 5.05 (H) 11/19/2018 eKvin Sage MD, SERA Motor Equipment Lieutenant of Clinical Medicine [facility] Images from the original note were not included. Final Discharge Planning and Transportation Final Discharge Planning Discharge Disposition: Home Services at Discharge: Outpatient clinical services (ie: lab draws, transfusions, injectables) (Home Oxygen by [facility]) Selected Continued Care - Admitted Since 08/28/2023 Durable Medical Equipment Coordination complete. Service Provider Selected Services Address Phone Fax Patient Preferred [employer] Durable Medical Equipment [address] [facility] 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 Addendum [phone] [facility] notified this CM they are out of patient's insurance area and will not be able to service this patient at time of discharge. Provider notified. Addendum [phone] Dr Kelly called [facility] spoke to Lynn and she said they are willing to accept patient if the patient would drive to the [place] office and pick out hand the supplies. Patient is willing to do [...] Lora Colón RN, MSN, CCM, CMCN Clinical Melting Supervisor- [facility] Transplant #[phone] Department of Pharmacy Transplant Note Patient: George [...] dose adjustment Name: Matt Kramer RPh,Frankie Phone: [phone] Date/Time: 09/10/2023 11:33 AM This CM sent referral via [employer] for O2 concentrator to [facility] Start date today Timer set for [address] [employer] [facility] IES Addendum 1333 One accepting company reserved in [address] [place] [address] Lora Colón RN, MSN, CCM, CMCN Clinical Melting Supervisor- [facility] Transplant #[phone] NUTRITION FOLLOW-UP Nutrition Plan of Care: 1. Continue current diet order. 2. No oral supplements warranted at this time. 3. Monitor for significant weight changes. Monitor GI, skin integrity. 4. Monitor and encourage po intakes with goal of average po being 75-100%. 5. life support technician to follow. ___ Met with patient [...] time. Will continue to monitor. RHIANNON [place]R Pager:[phone] Transplant Infectious Disease (Team 3) Progress Note [...] sign off. Please Epic message or page [phone] with questions. Evan White DO Transplant Infectious Diseases Internal Medicine Daily Progress Note Patient: George Styles, 1970, [id number] Physician: Evan Kelly MD, PGY-1, TM1 service [...] 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 His [place] kidney disease was noted to be presumed [...] losartan 50mg BID CAD: non-obstructive CAD on [facility] 2019. - continue home aspirin 81mg daily, [...] to follow. Please Epic message or page [phone] with questions. Evan White DO Transplant Infectious Diseases Internal Medicine Daily Progress Note Patient: George Styles, 1970, [id number] Physician: Laurel Serrano MD, PhD, PGY-3, TM1 [...] 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 His [place] kidney disease was noted to be presumed [...] losartan 50mg BID CAD: non-obstructive CAD on [facility] 2018. - continue home aspirin 81mg daily, holding atorvastatin 20mg daily Gout: continue home allopurinol 200mg daily BPH: continue home flomax 0.4mg daily DVT PPX: SQH Code Status: Full Code Disposition: Pending clinical course. Anticipate eventual discharge home. Discussed with team and attending, Kevin Sage MD, on rounds. Signed, Laurel Serrano MD, PhD Internal Medicine Daily Progress Note Patient: George Styles, 1970, [id number] Physician: Evan Kelly MD, PGY-1, TM1 service [...] 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 His [place] kidney disease was noted to be presumed [...] losartan 50mg BID CAD: non-obstructive CAD on [facility] 2018. - continue home aspirin 81mg daily, [...] 5.05 (H) 11/19/2018 Kevin Sage MD, SERA Motor Equipment Lieutenant of Clinical Medicine [facility] Transplant Infectious Disease (Team [...] to follow. Please Epic message or page [phone] with questions. Ann Marie Haskins MD PGY-4, [...] he continues to improve. Please message via [employer] secure chat or page with any questions or concerns. Evan White DO Motor Equipment Lieutenant Division of Infectious Disease Transplant Infectious Disease [...] to follow. Please Epic message or page [phone] with questions. Evan White DO Transplant Infectious Diseases Images from the original note were not included. Pulmonary/Critical Care Medicine Daily Progress Note Reason for Consultation: bronch for infectious workup Requesting Physician: Dr. Sage CURRENT HOSPITALIZATION: Admit Date: 08/28/2023 [facility] Hospital LOS: 9 days Impression 1. [...] and interpreted reviewed the radiographic data in [facility]. Internal Medicine Daily Progress Note Patient: George Styles, 1970, [id number] Physician: Evan Kelly MD, PGY-1, TM1 service [...] 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 His [place] kidney disease was noted to be presumed [...] losartan 50mg BID CAD: non-obstructive CAD on [facility] 2018. - continue home aspirin 81mg daily, [...] 5.05 (H) 11/19/2018 Kevin Sage MD, MADISONN Motor Equipment Lieutenant of Clinical Medicine [facility] Images from the original note were not included. Pulmonary/Critical Care Medicine Daily Progress Note Reason for Consultation: bronch for infectious workup Requesting Physician: Dr. Sage CURRENT HOSPITALIZATION: Admit Date: 08/28/2023 [facility] Hospital LOS: 8 days Impression 1. [...] and interpreted reviewed the radiographic data in [facility]. Acute Occupational Therapy Evaluation Prior to [...] Assessment: Transfer Assessment: Sit to Stand Transfer [place] Level: Sit->Stand: independent Skilled Intervention/Details: Sit->Stand: x1 from EOB, x1 from toilet Stand to Sit Transfer [place] Level: Stand->Sit: independent Skilled Intervention/Details: Stand->Sit: x1 to toilet, x1 to EOB Functional Mobility: Functional Mobility [place] Level: Functional Mobility/Gait: independent Ambulation Distance (Feet): 20 Skilled Intervention/Details - Functional Mobility/Gait: pt performed functional mobility to/from RR w/ no overt LOB Outcome Score(s): CURRENT [facility] Daily Activity Inpatient Short Form Putting on/Taking Off Lower Body Clothin - A Little Assistance Bathin - A Little Assistance Toiletin - A Little Assistance Putting on/Taking Off Upper Body Clothin - No Assistance Groomin - No Assistance Eatin - No Assistance CURRENT [facility] Activity Raw Score: 21 CURRENT [facility] Activity Functional Limitation/Modifier: 32.79% Currently Impaired [...] Acute Physical Therapy Evaluation Prior to Admission [facility] score(s): PRIOR LEVEL AM-PAC Mobility Raw Score: [...] Intact Mobility Assessment: Supine to Sit Mobility [place] Level: Supine->Sit: modified independence Bed Features/Set-up: Supine->Sit: Head of bed elevated Sit to Supine Mobility [place] Level: Sit->Supine: not tested Balance: Sitting Balance [...] environment. Transfer Assessment: Sit to Stand Transfer [place] Level: Sit->Stand: independent Skilled Intervention/Details: Sit->Stand: From EOB x 2 without difficulty. Stand to Sit Transfer [place] Level: Stand->Sit: independent Assistive Device: Stand->Sit: armed chair Skilled Rationale: Verbal cues, Positioning Gait/Functional Mobility: Gait Assessment [place] Level: Gait: stand-by assist Assistive Device: Gait: rollator Ambulation Distance (Feet): 400 Gait Deviations Identified: decreased grace, decreased gait speed Gait Skilled Rationale: verbal, upright posture, increase step length, increase foot clearance Skilled Intervention/Details - Gait: Reasonable foot clearnce without loss of balance but endorsing dyspnea as 6-7/10. Stairs: Stairs Assessment [place] Level: Stair Negotiation: not tested Outcome Score(s): [...] CURRENT AM-PAC Mobility Raw Score: 21 CURRENT [facility] Mobility Functional Limitation/Modifier: 28.97% Currently Impaired [...] Daily Progress Note Patient: George Styles, 1970, [id number] Physician: Evan Kelly MD, PGY-1, TM1 service [...] 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 His [place] kidney disease was noted to be presumed [...] losartan 50mg BID CAD: non-obstructive CAD on [facility] 2018. - continue home aspirin 81mg daily, [...] 5.05 (H) 11/19/2018 Kevin Sage MD, SERA Motor Equipment Lieutenant of Clinical Medicine [facility] Transplant Infectious Disease (Team [...] to follow. Please Epic message or page [phone] with questions. Evan White DO Transplant Infectious Diseases Images from the original note were not included. Internal Medicine Daily Progress Note Patient: George Styles, 1970, [id number] Physician: Evan Kelly MD, PGY-1, TM1 service [...] 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 His [place] kidney disease was noted to be presumed [...] losartan 50mg BID CAD: non-obstructive CAD on [facility] 2019. - continue home aspirin 81mg daily, [...] P 450 system Kevin Sage MD, SERA Motor Equipment Lieutenant of Clinical Medicine [facility] ERT [...] MD, PhD Internal Medicine and Pediatrics PGY-3 [facility] Brief plan of care update: Called to [...] MD, PhD Internal Medicine and Pediatrics PGY-3 [facility] Transplant Infectious Disease (Team 3) Progress [...] to follow. Please Epic message or page [phone] with questions. Evan White DO Transplant Infectious Diseases Internal Medicine Daily Progress Note Patient: George Styles, 1970, [id number] Physician: Evan Kelly MD, PGY-1, TM1 service [...] 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 His [place] kidney disease was noted to be presumed [...] 2/2 renal function CAD: non-obstructive CAD on [facility] 2018. - continue home aspirin 81mg daily, [...] 5.05 (H) 11/19/2018 Kevin Sage MD, SERA Motor Equipment Lieutenant of Clinical Medicine [facility] Internal Medicine Daily Progress Note Patient: George Styles, 1970, [id number] Physician: Evan Kelly MD, PGY-1, TM1 service [...] 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 His [place] kidney disease was noted to be presumed [...] 2/2 renal function CAD: non-obstructive CAD on [facility] 2018. - continue home aspirin 81mg daily, [...] 5.05 (H) 11/19/2018 Kevin Sage MD, SERA Motor Equipment Lieutenant of Clinical Medicine [facility] [employer] [facility] Comprehensive Trans[facility] [...] Lora Colón RN, MSN, CCM, CMCN Clinical Melting Supervisor- [facility] Transplant #[phone] Made introductory visit with patient. Provided emotional and spiritual support. Patient shared about: - Source of Rosemary: Camping/Fishing/Family - Spirituality/Faith Affiliation: raised Bahai - Family Support/history - Experience with illness/hospital course - Hopes for healing/future Inspector Wreath provided: - Supportive presence - Active listening - Validation of feelings/emotions - Pledged prayer Patient encouraged to request a vp sales as needed. Chaplains are available in-house 24 hours a day and 7 days a week. For urgent matters in [facility], please page [phone]. If the request is not urgent, please enter a consult. Consults are responded to within 24 hours. Senior Staff Inspector Wreath Angie Singh Mdiv, [facility] Kirk [phone] [email or web address] 22/06 On-call Cecil: [phone] 22/06 Pager ,BS, and Brock Maciel Pager [phone] 09/02/23 1117 Clinical Encounter Type Visited With Patient Visit Type Introduction Pastoral Time Spent 15 min Referral Other (See Comment) (rounding) Spiritual Assessment Spiritual Observation Spirituality helpful Emotional Observation Coping well Hope Observation Specific hope focus Support Observation By Family Interventions Provided Active listening;Supportive presence Facilitated Verbalization of feelings Explored Expectations Information Services Manager Education Information Services Manager Service Available Yes Educated Patient Outcomes Patient Outcomes Reduced distress Plan of Care Continue Visiting PRN NUTRITION RISK SCREENING NOTE Nutrition Plan of Care: 1. Continue current diet order. 2. No oral supplements warranted at this time. 3. Monitor for significant weight changes. Monitor GI and skin integrity. 4. Monitor and encourage po intakes with goal of average po being 100%. 5. life support technician to follow. George Styles is a 53 y.o. 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 His [place] kidney disease was noted to be presumed hepatorenal syndrome. His post-transplant course was noteworthy for nephrostomy tube (05/17/2022-09/10/2022) due to concern for ureteral stone. He presents as a direct admission for fever, cough, for infectious workup. Pt unavailable and information obtained via chart review Lead Data Architect Screening Pt's appetite is good. Pt with [...] with meds Food Allergies reviewed:Shellfish Cultural or Faith Restrictions/Preferences: None GI: Last Bowel Movement: 09/01/23 [...] time. Will continue to monitor. 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 His [place] kidney disease was noted to be presumed [...] 2/2 renal function CAD: non-obstructive CAD on [facility] 2018. - continue home aspirin 81mg daily, [...] as outlined above. Kevin Sage MD Pager [phone] Summary: Pharmacy Med Rec Department of Pharmacy [...] 0 Provider: Zuly Bruno NP [place] [facility] [place] Other Comments: Patient reported his Last Home Dose of mycophenolate & tacrolimus was on 08/28/23 at 0900. Patient reported he was taking Bactrim and benzonatate for fevers and a cough he was having. Please feel free to contact me with any further questions. Name: Heidy Chatman Phone #: [phone] Date/Time: 09/01/2023 2:01 PM Time Spent: 15 minutes Associated attestation - Matt Kramer RPh,PharmD - 09/01/2023 2:28 PM EDT Department of Pharmacy Admission Medication Reconciliation Note Patient: George Styles Room/Bed: 1062/A I have reviewed the home medication list with the Mechanic Welder. All changes to the home medication list have been updated in [facility]. Updated MELTER CLERK Med List: Prior to Admission Medications Prescriptions [...] questions. Name: Matt Kramer RPh,PharmD Phone #: [phone] Date/Time: 09/01/2023 2:28 PM Transplant Infectious Disease [...] crypto antigen, EBV PCR -follow pending histo, [id number] labs These recommendations were discussed with the primary team. Transplant ID (Team 3) will continue to follow. Please Epic message or page [phone] with questions. 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 His [place] kidney disease was noted to be presumed [...] 2/2 renal function CAD: non-obstructive CAD on [facility] 2018. - continue home aspirin 81mg daily, atorvastatin 20mg daily Gout: continue home allopurinol 200mg daily BPH: continue home flomax 0.4mg daily DVT PPX: SQH Code Status: Full Code Disposition: Pending clinical course. Anticipate eventual discharge home. Discussed with team and attending, Kevin Sage MD, on rounds. Signed, Evan Kelly MD Attending Physician Addendum I saw and personally examined Mr. Styels with the renal team. I discussed the [...] 5.05 (H) 11/19/2018 Kevin Sage MD, SERA Motor Equipment Lieutenant of Clinical Medicine [facility] Discharge Planning Patient Assessment [...] Yes Name and Contact information: Gian Styles ([phone]) Reviewed and Updated in Demographics? : Yes [...] patient on Anticoagulation? : No [id number] [place] [address] - [address] [facility] [address] [facility] [address] Pelletizer Operator Does the patient or scheduling representative express financial concerns? : No Employed?: Disabled Coping/Stress Concerns about patient s coping and stress?: No Concerns about patient s caregiver s coping and stress?: No Values and Beliefs Cultural or latter-day practices that may impact discharge planning and/or [...] Plan 1. Identified self and role as Melting Supervisor. 2. Confirmed and updated demographics and treatment team. 3. Melting Supervisor will continue to follow with medical team/pt for any other additional discharge needs. Kasandra DON RN [facility] [phone] *Please note I am float and work Thursday and Thursday every other week. Please call [phone] for assist in my absence. 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 His [place] kidney disease was noted to be presumed [...] 2/2 renal function CAD: non-obstructive CAD on [facility] 2018. 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 His [place] kidney disease was noted to be presumed [...] losartan 50mg BID CAD: non-obstructive CAD on [facility] 2018. - continue home aspirin 81mg daily, atorvastatin 20mg daily Gout: continue home allopurinol 200mg daily BPH: continue home flomax 0.4mg daily DVT PPX: SQH Code Status: Full Code Disposition: Pending clinical course. Anticipate eventual discharge home. Discussed with team and attending, Kevin Sage MD, on rounds. Signed, Laurel Serrano MD, PhD documented in this encounter [facility] 09-10-2023 Hospital Discharge instructions Laurel Serrano [...] a sleep doctor. You will need to pick out hand the oxygen concentrator when you leave the [...] on healthy foods. documented in this encounter [facility] 09-01-2023 Consult note Associated Order (s): IP CONSULT TO PULMONOLOGY Pulmonary Medicine Inpatient Consultation Reason for Consultation: bronch for infectious workup Requesting Physician: Dr. Sage Pulmonary Attending Physician: Dr. Diaz CURRENT HOSPITALIZATION: Admit Date: 08/28/2023 [facility] Hospital LOS: 4 days Impression/Recommendations: George [...] Recommendations: - Plan to bronch tomorrow morning. NPO@NH, order placed - would repeat HIV, last [...] short period of time. 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 Other histories as documented in the [...] had any ill contacts. [place] [facility] REVIEW OF SYSTEMS A complete [...] 05/17/2022 Surgeon: Enzo Heart DO; Location: [facility] INTERVENTIONAL RADIOLOGY (VIR) LIVER TRANSPLANT, ORTHOTOPIC N/A 04/12/2020 Laterality: N/A; Surgeon: LU Palma; Location: [facility] SAME DAY SURGERY MAIN OR KIDNEY TRANSPLANT W/O WINNEBAGO NEPHRECTOMY N/A 04/12/2020 Laterality: N/A; Surgeon: LU Palma; Location: [facility] SAME DAY SURGERY MAIN [...] Alamo MD I can be reached via [employer] secure message (preferred) or Pager #[phone] documented in this encounter [facility] 08-28-2023 History and physical note Images from the original note were not included. Internal Medicine Admission History & Physical Patient: George Styles, 1970, [id number] Physician: Aric Turner MD, PGY1, Pager #[phone], QE service Date of face to face patient [...] So he went to see the transplant civil engineer helper. He was found elevated Cr and asked [...] Appetite is ok now. Urine is about 1480-0050 ml every day. 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 His [place] kidney disease was noted to be presumed [...] Urinary histoplasmosis - PJP, candid PCR - Regulatory Compliance Director transplant ID Acute Kidney Injury with Kidney [...] losartan 50mg BID CAD: non-obstructive CAD on [facility] 2018. - continue aspirin 81mg daily, atorvastatin [...] Pierson, Luisa Steven, Renee Rivera, Daisha Max Quality Systems Specialist: José Miguel Garnica All Txt: 04/13/2020 [...] results found for: CYCLOSPORIN , CYCLOSPORIN2 , [id number] , CYCLORAND No results found for: SIROLIMUS [...] Rest as above. Kevin Sage MD Pager [phone] documented in this encounter [facility] 08-28-2023 History of Present illness Narrative Images from the original note were not included. 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 Quality Systems Specialist: Anayeli Burt Date of Liver Transplant: 04/13/2020 (Kidney), 04/13/2020 (Liver) 3 years 4 months post Liver/Kidney Transplant Primary Disease: Hypertensive Nephrosclerosis Transplant Blending Operator: Erma Roe/ Daisha Max Primary Care physician: [...] and faMOTIdine === None Specified Preferred Lab: [facility] Change in lab frequency / new order [...] every 12 hours. ADDITIONAL INFORMATION: None Specified, [id number] [place] [address] - [address] [facility] [address] [facility] [address] [facility] [address] [facility] [address] [id number] [place] [address] [address] [facility] [address] [facility] [address] [facility] Jakob Padgett, [facility] [address] [address] ROS and SCREEN: Chest Pain: negative Cough: [...] PHYSICIAN: I saw George Styles at the [facility] on 08/28/2023. Patient is a 53 y.o. 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 His [place] kidney disease was noted to be presumed [...] 05/17/2022 Surgeon: Enzo Heart DO; Location: [facility] INTERVENTIONAL RADIOLOGY (VIR) LIVER TRANSPLANT, ORTHOTOPIC N/A 04/12/2020 Laterality: N/A; Surgeon: LU Palma; Location: [facility] SAME DAY SURGERY MAIN OR KIDNEY TRANSPLANT W/O WINNEBAGO NEPHRECTOMY N/A 04/12/2020 Laterality: N/A; Surgeon: LU Palma; Location: [facility] SAME DAY SURGERY MAIN [...] you have any questions. Steve Latham MD drying frame operator Division of Nephrology [facility] documented in this encounter [facility] 08-28-2023 Instructions Mainor Busby RN - 08/28/2023 2:15 PM EDT - Admission for fevers, cough, and night sweats documented in this encounter [facility] 08-19-2023 History of Present illness Narrative [facility]REACH ADVANCED: Call Information: Date and Time of Contact: 08/19/2023 2:52 PM Method of Contact: By Phone Contact Type: Prescriptions Contactor: [facility] OP Contactee: Patient Shipping/Pickup: Medicare B Refill?: No Medication Name: Tacro 0.5mg Delivery Method: Air Delivery Location: Home Signature Required: No Mailing/Pickup Date: 08/25/2023 Shipping Address: [address] [place] [address] Contact Info: Specialty ([place]) [phone] [facility] [phone] [facility] [phone] [facility] [phone] Bedside Delivery ([facility]) [phone] documented in this encounter [facility] 06-12-2023 History of Present illness Narrative Images from the original note were not included. George Styles is a 53 y.o. 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 No longer follows with a local civil engineer helper. History of Present Illness: Since George was [...] and lab results. Rebeca Olsen MSN, RN, MAIL CLERK-BC, CCTN Certified Nurse Practitioner Comprehensive Trans[facility] [address] [facility] [address] documented in this encounter [facility] 06-12-2023 Instructions JEANNA Hess - 06/12/2023 3:00 PM EDT No change in immunosuppression. documented in this encounter [facility] 06-10-2023 History of Present illness Narrative [facility]REACH [facility]ANC[facility]: Call Information: Method of Contact: By Phone Contact Type: Prescriptions Contactor: [facility] OP Contactee: Patient Contact Outcome: Left message Shipping/Pickup: Medication Name: Mycophenolate sod 180 mg Contact Info: Specialty ([place]) [phone] Jakob [phone] [facility] [phone] David [phone] Bedside Delivery ([facility]) [phone] [facility]REACH [facility]ANC[facility]: Call Information: Date and Time of Contact: 06/12/2023 9:43 AM Method of Contact: By Phone Contact Type: Prescriptions Contactor: [facility] OP Contactee: Patient Contact Outcome: Left message and Follow-up Shipping/Pickup: Medicare B Refill?: No Medication Name: Myco 180 Contact Info: Specialty ([place]) [phone] [facility] [phone] [facility] [phone] David [phone] Bedside Delivery ([facility]) [phone] [facility] RX OUTREACH ADVANCED: Call Information: Date and Time of Contact: 06/12/2023 10:08 AM Method of Contact: By Phone Contact Type: Prescriptions Contactor: [facility] Contactee: Patient Shipping/Pickup: Medicare B Refill?: No Medication Name: Mycophenolate 180mg DR Delivery Method: Air Delivery Location: Home Signature Required: No Mailing/Pickup Date: 06/17/2023 Shipping Address: [address] [place] [address] Contact Info: Specialty ([place]) [phone] Jakob [phone] [facility] [phone] David [phone] Bedside Delivery ([facility]) [phone] documented in this encounter [facility] 04-13-2023 Note [place] [facility] Subjective George Styles is a [...] Legacy Encounter on (more content not included)... [facility] 03-12-2023 History of Present illness Narrative [facility] OUTREACH ADVANCED: Call Information: Date and Time of Contact: 03/12/2023 10:34 AM Method of Contact: By Phone Contact Type: Prescriptions Contactor: [facility] Contactee: Patient Shipping/Pickup: Medicare B Refill?: No Medication Name: Mycophenoloate sod 360 mg prednisone 5mg Delivery Method: Air Delivery Location: Home Signature Required: No Mailing/Pickup Date: 03/16/2023 Shipping Address: [address] [place] [address] Contact Info: Specialty ([place]) [phone] Jakob [phone] [facility] [phone] David [phone] Bedside Delivery ([facility]) [phone] [facility] OUTREACH ADVANCED: Call Information: [...] Required: No Mailing/Pickup Date: 03/19/2023 Shipping Address: [address] [place] [address] [address] Contact Info: Specialty ([place]) [phone] [facility] [phone] [facility] [phone] David [phone] Bedside Delivery ([facility]) [phone] documented in this encounter [facility] 03-10-2023 History of Present illness Narrative [facility] OUTREACH ADVANCED: Call Information: Date and Time of Contact: 03/10/2023 12:00 PM Method of Contact: By Phone Contact Type: Prescriptions Contactor: [facility] Contactee: Patient Contact Outcome: Left message and Call back later Shipping/Pickup: Medication Name: Mycophenolate ; Tacrolimus Contact Info: Specialty ([place]) [phone] [facility] [phone] [facility] [phone] David [phone] Bedside Delivery ([facility]) [phone] documented in this encounter [facility] 03-10-2023 History of Present illness Narrative [facility] OUTREACH ADVANCED: Call Information: Date and Time of Contact: 03/10/2023 12:00 PM Method of Contact: By Phone Contact Type: Prescriptions Contactor: [facility] Contactee: Patient Contact Outcome: Left message and Call back later Shipping/Pickup: Medication Name: Mycophenolate ; Tacrolimus Contact Info: Specialty ([place]) [phone] [facility] [phone] [facility] [phone] David [phone] Bedside Delivery ([facility]) [phone] [facility] OUTREACH ADVANCED: Call Information: Date and Time of Contact: 03/12/2023 10:32 AM Method of Contact: By Phone Contact Type: Prescriptions Contactor: [facility] Contactee: Patient Contact Outcome: Left message Shipping/Pickup: Medication Name: Mycophenolate sodium (MYFORTIC) 180 MG Tab tacrolimus 0.5 mg Contact Info: Specialty ([place]) [phone] Jakob [phone] [facility] [phone] David [phone] Bedside Delivery ([facility]) [phone] documented [facility] 01-[facility] History of Present illness Narrative -Referring Provider for today's consult: Daisha Max DO -Primary Care Provider: Zuly Bruno History of Present Illness George Styles is a 52 y.o. male who presents to the [facility] Transplant Hepatology Clinic today for follow-up [...] 05/17/2022 Surgeon: Enzo Heart DO; Location: [facility] INTERVENTIONAL RADIOLOGY (VIR) LIVER TRANSPLANT, ORTHOTOPIC N/A 04/12/2020 Laterality: N/A; Surgeon: LU Palma; Location: [facility] SAME DAY SURGERY MAIN OR KIDNEY TRANSPLANT W/O WINNEBAGO NEPHRECTOMY N/A 04/12/2020 Laterality: N/A; Surgeon: LU Palma; Location: [facility] SAME DAY SURGERY MAIN [...] 0.3 12/29/2022 Explant Pathology Pathologic Diagnosis A. [place] liver, orthotopic liver transplant resection (1458 gram): [...] A/P with IV contrast (06/27/2022): 1. Both [place] kidneys are atrophic with improvement in right-sided [...] frequent nighttime urination, etc). Daisha Max DO Motor Equipment Lieutenant Gastroenterology, Hepatology and Nutrition [facility] Pager: [phone] Images from the original note were not included. 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 Quality Systems Specialist: Anayeli Burt Date of Liver Transplant: 04/13/2020 (Kidney), 04/13/2020 (Liver) 2 years, 8 months post Liver/Kidney Transplant Primary Disease: Hypertensive Nephrosclerosis Transplant Blending Operator: Steve Latham Primary Care physician: Zuly Bruno [...] levels: No results found for: CYCLOSPORIN, CYCLOSPORIN2, [id number], CYCLORAND No components found for: CYCLOSPORINE, 2HR [...] hours. ADDITIONAL INFORMATION: None Specified [id number] [place] [address] - [address] [facility] [address] [facility] [address] [facility] [address] [facility] [facility] [address] [id number] [place] [address] [address] [facility] [address] [facility] [address] [facility] [address], [address] [facility] [address] ROS and SCREEN: Chest Pain: negative Cough: [...] ADDRESS WITH PHYSICIAN: documented in this encounter [facility] 01-16-2023 Instructions José Miguel Garnica RN - 01/16/2023 9:40 AM EST - Labs Every 2 months - Discuss night time urination with your PCP - Schedule Colonoscopy through PCP - Follow up in 1 year documented in this encounter [facility] 09-10-2022 History of Present illness Narrative [...] and no hydronephrosis. Some reflux up the [place] right ureter but good drainage of both transplant and [place] ureter to the bladder. Nephrostomy tube was [...] transplant, orthotopic (N/A, 04/12/2020); kidney transplant w/o [place] nephrectomy (N/A, 04/12/2020); and placement nephrostomy catheter [...] Negative for , diarrhea, constipation Genitourinary: See [place] Neurological: Negative for headaches. Lymph/Heme: Negative for [...] x 4, Normal strength. No edema. Skin: [place], warm, and dry. There are no rashes [...] and no hydronephrosis. Some reflux up the [place] right ureter but good drainage of both transplant and [place] ureter to the bladder. Nephrostomy tube was [...] MD 09/10/22 documented in this encounter [facility] 07-07-2022 History of Present illness Narrative [...] assisted off the table and escorted to wood block artist where they made a follow up. Associated [...] to have transplant ureter with anastomosis to [place] right ureter. Nephrostogram without filling defects and no hydronephrosis. Some reflux up the [place] right ureter but good drainage of both transplant and [place] ureter to the bladder. Nephrostomy tube was removed without issue. Patient does have some sensation of incomplete bladder emptying and occasional sensation in his right flank. PVR today was 33cc. Will re-evaluate urinary symptoms at next appointment. --continue Flomax --RTC in one month flow flow/PVR/IPSS Patient to call with any additional questions or concerns. Ryan Yepez MD 07/07/22 documented in this encounter [facility] 06-27-2022 History of Present illness Narrative [...] transplant, orthotopic (N/A, 04/12/2020); kidney transplant w/o [place] nephrectomy (N/A, 04/12/2020); and placement nephrostomy catheter [...] Negative for , diarrhea, constipation Genitourinary: See [place] Neurological: Negative for headaches. Lymph/Heme: Negative for [...] x 4, Normal strength. No edema. Skin: [place], warm, and dry. There are no rashes [...] yo male with a DDRT to the [facility] in 2019. Nephrostomy tube placed 05/17 [...] bag if needed. documented in this encounter [facility] 06-27-2022 History and physical note Patient was evaluated in clinic as a nurse visit. Please refer to Rena Brewster's note. [facility] Work Phone: 06-27-2022 History and physical note Patient was evaluated in clinic as a nurse visit. Please refer to Rena Brewster's note. documented in this encounter [facility] 06-27-2022 History of Present illness Narrative TEACHING REGARDING TX NEPH COMPLETED-NEPH TUBE SITE DRY AND INTACT-CLEAR YELLOW URINE IN THE BAG-INSTRUCTED ABOUT FLUSHING, BAG CHANGING ETC. NUMEROUS QUESTIONS ASKED AND ANSWERED-VERBALIZED UNDERSTANDING documented in this encounter [facility] 06-18-2022 Note EXAMINATION: CT ABD/ PELVIS [...] mass or enlargement. KIDNEYS: Marked atrophy of [place] kidneys. Transplant right pelvic kidney with percutaneous [...] authenticated by: MÓNICA JIMENEZ Date: 2022-06-18 13:53 [facility] 06-12-2022 Instructions Anayeli Christianson RN - 06/12/2022 3:21 PM EDT Do not take apart/disrupt nephrostomy tube system. Call Interventional Radiology and/or on-call transplant nurse [phone] for instruction if need to flush (clot or decreased flow). Take cipro 500mg, one tablet, twice per day for 14 days documented in this encounter [facility] 06-12-2022 History of Present illness Narrative Images from the original note were not included. PREP SHEET FOR NEPHROLOGY/ Hepatology CLINIC Patient Name: Georeg Styles Quality Systems Specialist: Anayeli Burt Date of Liver Transplant: 04/13/2020 (Kidney), 04/13/2020 (Liver) 2 year, 1 months post Liver/Kidney Transplant Primary Disease: Hypertensive Nephrosclerosis Transplant Blending Operator: Steve Latham Primary Care physician: Zuly Bruno [...] Non-obstructing kidney stone in renal graft at [facility]. Percutaneous Neph Tube placed Images from the original note were not included. Nursing Assessment In Clinic (see Clinic Prep Sheet for additional information) Patient is accompanied to clinic today by: self Did patient require a wheelchair or medical transport for appointment: no Did front desk associate confirm current address and insurance information is [...] None Specified [facility] [id number] - [address] [facility] [address] [facility] [address] [facility] [address] [facility] [address] [id number] [place] [address] [address] [facility] [address] [facility] [address] [facility] [address], [address] [facility] [address] ROS and SCREEN: Chest Pain: negative Cough: negative SOB: negative Abd Pain: negative Nausea: positive Vomiting: negative Diarrhea: negative Constipation: negative Dysuria: positive Edema: negative Tremors: negative Headaches: negative Wound issues: negative Pt has neph tube w clear yellow urine. States he had a small clot that he dislodged QUESTIONS OR CONCERNS TO ADDRESS WITH PHYSICIAN: I saw George Styles at the [facility] on 06/12/2022. Patient is a 52 y.o. 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 His [place] kidney disease was noted to be presumed [...] 05/17/2022 Surgeon: Enzo Heart DO; Location: [facility] INTERVENTIONAL RADIOLOGY (VIR) LIVER TRANSPLANT, ORTHOTOPIC N/A 04/12/2020 Laterality: N/A; Surgeon: LU Palma; Location: [facility] SAME DAY SURGERY MAIN OR KIDNEY TRANSPLANT W/O WINNEBAGO NEPHRECTOMY N/A 04/12/2020 Laterality: N/A; Surgeon: LU [...] you have any questions. Steve Latham MD drying frame operator Division of Nephrology [facility] documented in this encounter [facility] 06-04-2022 Instructions TATI GROVE - 06/04/2022 11:04 AM EDT Thank you for joining us for your neph tube follow up. We recommend routine exchange every 8-10 weeks. Please reach out at [phone] when it is time to set your next routine exchange. Thank you IR clinic documented in this encounter [facility] 06-04-2022 History of Present illness Narrative [...] exchange. Verbalized understanding. documented in this encounter [facility] 05-20-2022 Note Formatting of this n [...] time of his discharge. Leon Cook RN [facility] 05-20-2022 Miscellaneous Notes Patient discharged. AVS [...] provide teaching before his discharge Leon RN #[id number] Leon Cook RN Afternoon assessment completed at [...] Interdisciplinary Rounds/Family Conf Outcome: Ongoing Discussed with [facility] re: possible urine culture performed at their [...] 0500: IHIS message sent to Dr Justyn eWn, regarding pt BP 174/77. Problem: Patient Care [...] with questions. Evan Byrd MD Urology, PGY-2 #[id number] I certify that this patient requires inpatient [...] Kallie Lorenzana RN documented in this encounter [facility] 05-20-2022 Note Formatting of this n [...] discharge/transition of care. Outcome: Adequate for Discharge [facility] 05-20-2022 Note Formatting of this n ote might be different from the original. Anne Dillard MD R10 Rm 1006 Jensen George Please let's have a clear order on how the nephrostomy site dressing need to be changed when the patient goes home so we provide teaching before his discharge Leon RN #[id number] Leon Cook RN [facility] 05-20-2022 History of Present illness Narrative Images from the original note were not included. [facility] Note: [facility] the following [facility] prescription(s): Medication reconciliation was completed with comparison to discharge reconciliation report. The prescription(s) will be delivered to the patient's bedside on 05/20/22. Total cost is $0. Yanira Her RPh,PharmD Specialty ([place]) [phone] Jakob [phone] [facility] [phone] David [phone] [place] [phone] Bedside Delivery ([facility]) [phone] Attending I saw George Styles at the [facility] on 05/19/2022. I saw and independently evaluated [...] Evan Bennett MD 650 mg at 05/18/22 4983 allopurinol (ZYLOPRIM) tablet 100 mg 100 mg [...] Daily Progress Note Patient: George Styles, 1970, [id number] Physician: Liam Julian MD, PGY-3, Pager #[phone], [id number] Subjective/Interval History: No acute events overnight. Passed [...] Saldana MD Division of Hospital Medicine Pager [phone] Attending I saw George Styles at the [facility] on 05/18/2022. I saw and independently evaluated [...] Daily Progress Note Patient: George Styles, 1970, [id number] Physician: Nishant Gamez MD, PGY2, Pager #[phone], [id number] Subjective/Interval History: Nephrostomy tube placed yesterday with [...] to have stablized for this to be scheduling representative. Daya Saldana MD (Peggy) Division of Hospital Medicine Pager [phone] Internal Medicine Daily Progress Note Patient: George Styles, 1970, [id number] Physician: Nishant Gamez MD, PGY2, Pager #[phone], [id number] Subjective/Interval History: Worsening creatinine this morning with [...] MD (Peggy) Division of Hospital Medicine Pager [phone] Attending I saw George Styles at the [facility] on 05/17/2022. I saw and independently evaluated [...] lozenge 1 lozenge Oral Q2H PRN Evan Benentt MD cefTRIAXone (ROCEPHIN) 2 g in dextrose [...] of chart and discussion with treatment team, Melting Supervisor has not identified needs at this time. [...] follow. Introduced self and role of the vp sales to patient. Provided emotional and spiritual support and the patient responded by sharing their experience and discussed the following: - Spirituality/Faith Affiliation: As a kid attended Bahai hoahaoism but not a strong identity now - Family support - pt's brothers live close by Inspector Wreath provided: - Supportive presence - Active listening - Validation of feelings/emotions Patient encouraged to request a vp sales as needed. Chaplains are available in-house 24 hours a day and 7 days a week. For urgent matters in [facility], please page [phone]. If the request is not urgent, please enter a consult. Consults are responded to within 24 hours. Angie Singh Mdiv, [facility] Burn Unit and Transplant [place] [phone] Inspector Wreath [facility] Inspector Wreath Kirk [phone] [email or web address] [email or web address] [facility] Pager [phone] 22/06 Pager ,[facility], and [place] 1500 22/06 David Pager [...] of life story;Identifying support system Explored Expectations Information Services Manager Education Information Services Manager Service Available Yes Educated Patient Outcomes Patient Outcomes Articulated purpose/meaning Plan of Care Continue Visiting PRN Internal Medicine Daily Progress Note Patient: George Styles, 1970, [id number] Physician: Nishant Gamez MD, PGY2, Pager #[phone], [id number] Subjective/Interval History: Overall feeling okay this morning. 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 Objective/Observation: [...] Supervision Transfer Assessment: Sit to Stand Transfer [place] Level: Sit->Stand: independent Skilled Intervention/Details: Sit->Stand: x1 from EOB Stand to Sit Transfer [place] Level: Stand->Sit: supervision Assistive Device: Stand->Sit: armed chair Skilled Rationale: Controlled descent for sitting, Verbal cues Gait/Functional Mobility: Gait Assessment [place] Level: Gait: supervision Assistive Device: Gait: gait belt Gait Distance (feet): 200 Gait Deviations Identified: decreased grace, decreased step length, decreased stride length Gait Skilled Rationale: verbal, upright posture Skilled Intervention/Details - Gait: Pt with steady gait without LOB or complaints of SOB. Stairs: Stairs Assessment [place] Level: Stair Negotiation: stand-by assist Assistive Device: Stair Negotiation: gait belt, left rail (ascending) Number of stairs: 9 Stairs Skilled Rationale: reciprocal pattern Outcome Score(s): CURRENT [facility] Basic Mobility Inpatient Short Form Turning over in bed: 4 - No Assistance Sitting/standing from chair: 4 - No Assistance Moving from lying on back to sittin - No Assistance Moving to and from bed to chair: 4 - No Assistance Walk in hospital room: 3 - A Little Assistance Climbing 3-5 steps with a railin - A Little Assistance CURRENT [facility] Mobility Raw Score: 22 CURRENT [facility] Mobility Functional Limitation/Modifier: 20.91% Currently Impaired [...] reported no concerns with discharging home with [facility] support. 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 IADL History IADLs: independent Primary Language: Maltese Home Management Skills: independent Meal Prep Responsibility: [...] Assessment: Transfer Assessment: Sit to Stand Transfer [place] Level: Sit->Stand: independent Skilled Rationale: Cues for increased safety Skilled Intervention/Details: Sit->Stand: x1 EOB Stand to Sit Transfer [place] Level: Stand->Sit: supervision Assistive Device: Stand->Sit: gait belt, armed chair Skilled Rationale: Verbal cues, Controlled descent for sitting, Cues for increased safety Skilled Intervention/Details: Stand->Sit: cues for hand placement and controlled descent Functional Mobility: Functional Mobility [place] Level: Functional Mobility/Gait: stand-by assist Assistive Device: Functional Mobility/Gait: gait belt Functional Mobility Distance: Distance needed for limited community mobility Functional Mobility Deficits: Activity tolerance, Balance, Decreased step length, Generalized weakness Functional Mobility Skilled Rationale: Verbal cues, Facilitate postural control Skilled Intervention/Details - Functional Mobility/Gait: cues for upright posture Outcome Score(s): CURRENT [facility] Daily Activity Inpatient Short Form Putting on/Taking Off Lower Body Clothin - A Little Assistance Bathin - A Little Assistance Toiletin - A Little Assistance Putting on/Taking Off Upper Body Clothin - No Assistance Groomin - No Assistance Eatin - No Assistance CURRENT [facility] Activity Raw Score: 21 CURRENT [facility] Activity Functional Limitation/Modifier: 32.79% Currently Impaired [...] Laterality: N/A; Surgeon: LU Palma; Location: [facility] SAME DAY SURGERY MAIN OR KIDNEY TRANSPLANT W/O WINNEBAGO NEPHRECTOMY N/A 04/12/2020 Laterality: N/A; Surgeon: LU [...] by: Mel Norman OT, OTR/L License #: [id number] pager # [phone] 05/20/2022 Upon discontinuation of Acute Care Occupational Therapy Services or patient discharge from the hospital this note represents the current Occupational Therapy Discharge Summary. documented in this encounter [facility] 05-20-2022 Hospital course Narrative Discharge Summary [...] during his recent hospital stay at [facility]. As you may know, George Styles, [...] Saldana MD Division of Hospital Medicine p: [phone] f: [phone] CONSULTS DURING ADMISSION: IP CONSULT TO SURGERY - UROLOGY IP CONSULT TO NEPHROLOGY - TRANSPLANT (MEDICINE) IP CONSULT TO INTERVENTIONAL RADIOLOGY IP CONSULT TO PHYSICAL THERAPY IP CONSULT TO OCCUPATIONAL THERAPY IP CONSULT TO PHARMACY BEDSIDE DISCHARGE MED DELIVERY IMAGING / PROCEDURES / RESULTS: Should you require further information or copies of results or reports please contact Medical Information Management @ [phone] LABS AT TIME OF DISCHARGE: Lab Results [...] Bruno [address] / [place] [address] MEDICATIONS: Discharge Orders CT ABDOMEN/PELVIS WITHOUT CONTRAST [...] CAPS Generic drug: docusate Follow-up: Zuly Bruno, SAP GATHERER [address] [facility] [phone] Schedule an appointment as soon as possible for a visit Follow-up appointment with your, primary care physician within 7-10 days, after discharge. [address] [facility] [phone] Follow up The department of urology will call you with a follow up appointment. LU Ovalle [address] 11[address] Floor [facility] [phone] Follow up Please make a follow up appointment with Dr. Latham's office. Upcoming Appointments (up to five)-Some appointments for Medical Center outpatient clinics or diagnostic testing locations are not displayed below Provider Department Dept Phone 06/04/2022 10:40 AM [facility] [phone] 06/27/2022 1:30 PM [facility] Department of Radiology Arrive at: Arrive to First Floor Registration Desk [phone] 06/27/2022 2:40 PM Ryan Yepez [facility] [place] Arrive at: Arrive to 2nd Floor, Registration [address] 10/31/2022 1:00 PM Steve Latham [facility] Transplant [facility] [phone] 01/16/2023 9:40 AM TRANSPLANT HEPATOLOGY , [facility] Transplant [facility] [phone] Associated attestation - Daya Saldana MD - [...] MD (Peggy) Division of Hospital Medicine Pager [phone] documented in this encounter [facility] 05-20-2022 Hospital Discharge instructions Giulia Cavazos [...] be changed by Interventional Radiology. Please call [phone] to schedule this appointment and with any questions or concerns you may have regarding the nephrostomy tube. If you have questions or concerns, please call Interventional Radiology at SOMEONE FROM INTERVENTIONAL RADIOLOGY WILL CALL YOU FOR A FOLLOW UP IN THE IR CLINIC Giulia Cavazos RN Nurse Coordinator Interventional Radiology Interventional Radiology Outpatient scheduling documented in this encounter [facility] 05-19-2022 Note Formatting of this n [...] Ongoing Goal: Interdisciplinary Rounds/Family Conf Outcome: Ongoing [facility] 05-19-2022 Note Formatting of this n ote might be different from the original. Discussed with [facility] re: possible urine culture performed at their facility. However, based on urinalysis completed at that time, which was only notable for hematuria, culture was not performed and sample no longer feasible for culture. Liam Julian MD Internal Medicine/Pediatrics, PGY-3 [facility] 05-18-2022 Note Formatting of this n ote might be different from the original. 2002: IHIS message sent to Dr Justyn Wen, regarding patient passing a small kidney stone, about the size of pea. MD notified. Stone left in strainer in pt bathroom. 0500: IHIS message sent to Dr Justyn Wen, regarding pt BP 174/77. [facility] 05-18-2022 Note Formatting of this n [...] outcomes by discharge/transition of care. Outcome: Ongoing [facility] 05-18-2022 Note Formatting of this n [...] becomes hyponatremic, NS should instead be used. [facility] Work Phone: 05-18-2022 Note Formatting of this n ote might be different from the original. IHIS chat sent to Dr Tray Quintana, regarding pt BP 190/86. Pt complaining of pain at site of neph tube. PRN pain medication given per order parameters. Pt denies any other symptoms at this time. MD notified and aware. [facility] 05-17-2022 Note Formatting of this n ote might be different from the original. At 0900, I rounded with Dr. Gamez and Dr. Saldana. At that time I checked Mr. Styles's vital signs. His pulse oximeter was low and he was tachypneic. Verbal order at bedside to put nasal cannula on starting at 2liters oxygen and to provide incentive spirometer. [facility] 05-17-2022 Note Formatting of this n ote might be different from the original. Interventional Radiology procedure completed with IR Attending Dr. Heart / Dr. Le of percutaneous right nephrostomy tube placement transplant kidney 10.2 Fr Griffin acosta Pt tolerated procedure with moderate sedation local numbing agent . Transported to inpatient after phase I recovery. Post procedure orders in place. [facility] 05-16-2022 Note Formatting of this n ote might be different from the original. At 1530, I text chavad Kaitlynn Gomez MD that patient has only had 25ml urine output in myers this afternoon. [facility] 05-16-2022 Note Formatting of this n [...] with questions. Evan Byrd MD Urology, PGY-2 #[id number] [facility] Work Phone: 05-16-2022 Note Formatting of this n ote might be different from the original. I certify that this patient requires inpatient services at this time. I anticipate the expected length of stay will include at least two midnights. Inpatient services are due to the following medical concerns Obstructive kidney stone. Plans for post hospitalization care will be discharge to home. [facility] 05-16-2022 Consult note Associated Order (s): IP CONSULT TO NEPHROLOGY - TRANSPLANT (MEDICINE) I saw George Styles at the [facility] on 05/16/2022. Reason for Consultation: kidney stone [...] he was given flomax and sent home. [place] better but noticed more pain and decreased [...] best assessment and recommendations. Maxi Pringle MD [facility] Work Phone: 05-16-2022 Consult note Associated Order (s): IP CONSULT TO NEPHROLOGY - TRANSPLANT (MEDICINE) I saw George Styles at the [facility] on 05/16/2022. Reason for Consultation: kidney stone [...] he was given flomax and sent home. [place]on better but noticed more pain and decreased [...] states he went to his local ED [place] and he was put on Flomax and he did improve. Pt states last night he was unable to void with severe right sided abd pain. Pt states nausea and no vomiting or fevers. Pt states he went back to [place] ED at 0100 and they placed a [...] orthotopic (N/A, 04/12/2020); and kidney transplant w/o [place] nephrectomy (N/A, 04/12/2020). 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 The [place] kidneys are progressively atrophic bilaterally compared to [...] of 06/14/2020 are no longer present. The [place] distal right ureter is decompressed beyond this [...] with surgical history for renal graft and [place] right urinary drainage, as a discrete ureteroneocystostomy is not identified, and the graft may be draining via a ureteroureterostomy. Urology consultation recommended. 3. The [place] kidneys are bilaterally atrophic, with right renal sinus calcifications consistent with nonobstructing right [place] renal calculi up to 6 mm. Normal [...] PGY-3, Department of Urologic Surgery Pager #: [phone] Associated attestation - Ryan Yepez MD - [...] continue flomax documented in this encounter [facility] 05-16-2022 Note Formatting of this n [...] supported Trust Relationship/Rapport: care explained choices provided [facility] 05-16-2022 Note Formatting of this n ote might be different from the original. On admission to R10, a dual RN initial assessment of skin condition was performed by Kallie Lorenzana RN and Sheri Arguelles RN. Skin Assessment: WDL Jose Score: 20 LDA Added:N Kallie Lorenzana RN [facility] 05-15-2022 Emergency department Note Report given to Kallie RN at 10 [facility] 05-15-2022 Emergency department Note Report given [...] DAY SURGERY MAIN OR KIDNEY TRANSPLANT W/O WINNEBAGO NEPHRECTOMY N/A 04/12/2020 Laterality: N/A; Surgeon: LU [...] Schneider MD Resident 05/15/222030 Pt arrives from [facility] with kidney stones. Pt states he had right lower abd pain and right flank pain with blood in his urine since Thursday. Pt states he went to his local ED [place] and he was put on Flomax and he did improve. Pt states last night he was unable to void with severe right sided abd pain. Pt states nausea and no vomiting or fevers. Pt states he went back to [place] ED at 0100 and they placed a myers and CT scan completed and multiple kidney stones noted. [facility] and kidney transplant in 03/2020. documented in this encounter [facility] 05-15-2022 History and physical note Internal Medicine Admission History & Physical Patient: George Styles, 1970, [id number] Physician: Evan Bennett MD, PGY1, Pager #[phone], GM 4 service Date of face to [...] DAY SURGERY MAIN OR KIDNEY TRANSPLANT W/O WINNEBAGO NEPHRECTOMY N/A 04/12/2020 Laterality: N/A; Surgeon: LU [...] erythema: Skin: No jaundice or rash Neuro: bilingual inside sales representative 3-7, 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 Strength grossly [...] dilation of the calyces may represent narrowing/partial [id number] ofthe ureter and mild hydronephrosis or sequela [...] MD Division of Hospital Medicine [id number] [facility] Work Phone: 05-15-2022 History and physical note Internal Medicine Admission History & Physical Patient: George Styles, 1970, [id number] Physician: Evan Bennett MD, PGY1, Pager #[phone], 4 service Date of face to face [...] DAY SURGERY MAIN OR KIDNEY TRANSPLANT W/O WINNEBAGO NEPHRECTOMY N/A 04/12/2020 Laterality: N/A; Surgeon: LU [...] erythema: Skin: No jaundice or rash Neuro: bilingual inside sales representative 3-7, 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 Strength grossly [...] dilation of the calyces may represent narrowing/partial [id number] ofthe ureter and mild hydronephrosis or sequela [...] Medicine [id number] documented in this encounter [facility] 05-15-2022 Emergency department Note Bladder scan with Dr Villatoro at bedside, 14ml noted [facility] 05-15-2022 Consult note Associated Order (s): [...] states he went to his local ED [place] and he was put on Flomax and he did improve. Pt states last night he was unable to void with severe right sided abd pain. Pt states nausea and no vomiting or fevers. Pt states he went back to [place] ED at 0100 and they placed a [...] orthotopic (N/A, 04/12/2020); and kidney transplant w/o [place] nephrectomy (N/A, 04/12/2020). 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 The [place] kidneys are progressively atrophic bilaterally compared to [...] of 06/14/2020 are no longer present. The [place] distal right ureter is decompressed beyond this [...] with surgical history for renal graft and [place] right urinary drainage, as a discrete ureteroneocystostomy is not identified, and the graft may be draining via a ureteroureterostomy. Urology consultation recommended. 3. The [place] kidneys are bilaterally atrophic, with right renal sinus calcifications consistent with nonobstructing right [place] renal calculi up to 6 mm. Normal [...] PGY-3, Department of Urologic Surgery Pager #: [phone] Associated attestation - Ryan Yepez MD - [...] before surgical intervention --may continue flomax [facility] Work Phone: 05-15-2022 Emergency department Note Advised Dr Schneider concerning no urine output via myers catheter. [facility] 05-15-2022 Physician Emergency department Note ED [...] plan of care. Gian Villatoro MD 05/15/222003 [facility] Work Phone: 05-15-[address] Schneider made aware of only 30 ml urine via myers since arrival to room. [facility] 05-15-2022 Physician Emergency department Note dEPARTMENT [...] DAY SURGERY MAIN OR KIDNEY TRANSPLANT W/O WINNEBAGO NEPHRECTOMY N/A 04/12/2020 Laterality: N/A; Surgeon: LU [...] incorrections. Matt Schneider MD Resident 05/15/222030 [facility] Work Phone: 05-15-2022 Emergency department Note Pt arrives from [facility] with kidney stones. Pt states he had right lower abd pain and right flank pain with blood in his urine since Thursday. Pt states he went to his local ED [place] and he was put on Flomax and he did improve. Pt states last night he was unable to void with severe right sided abd pain. Pt states nausea and no vomiting or fevers. Pt states he went back to [place] ED at 0100 and they placed a myers and CT scan completed and multiple kidney stones noted. [facility] as he had liver and kidney transplant in 03/2020. [facility] 03-14-2022 History of Present illness Narrative [...] Required: No Mailing/Pickup Date: 03/17/2022 Shipping Address: [address] [place] [address] [address] Contact Info: Specialty ([place]) [phone] [facility] [phone] [facility] [phone] David [phone] Bedside Delivery ([facility]) [phone] documented in this encounter [facility] 06-14-2021 History of Present illness Narrative [...] Goal Progress: Satisfactory Contact Info: Specialty ([place]) [phone] Jakob [phone] [facility] [phone] [facility] [phone] Bedside Delivery ([facility]) [phone] [facility]: Call Information: Date [...] Location: Home Signature Required: Yes Shipping Address: [address] [place] [id number] Contact Info: Specialty (Yanci) [phone] [facility] [phone] [facility] [phone] [facility] [phone] Bedside Delivery ([facility]) [phone] documented in this encounter [facility] Evaluation note Diagnosis FAYE (acute kidney injury)- Primary Acute kidney failure, unspecified Hydronephrosis due to obstruction of ureteral orifice Hydronephrosis due to obstruction of ureteral orifice FAYE (acute kidney injury) Acute kidney failure, unspecified [facility] Diagnosis Follow-up exam- Primary Unspecified follow-up examination [facility] Diagnosis Immunosuppressed status- Primary Unspecified disorder of immune mechanism Kidney replaced by transplant Liver replaced by transplant Abnormal blood chemistry Other abnormal blood chemistry High risk medication use Encounter for long-term (current) use of other medications Aftercare following organ transplant Liver transplant recipient [facility] Diagnosis Attention to nephrostomy- Primary [facility] Diagnosis Other hydronephrosis- Primary [facility] Diagnosis FAYE (acute kidney injury) Acute kidney failure, unspecified [facility] Diagnosis Other hydronephrosis- Primary -donor kidney transplant recipient Kidney replaced by transplant [facility] Diagnosis Other hydronephrosis [facility] Diagnosis 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) Encounter for screening for malignant neoplasm of prostate Special screening for malignant neoplasm of prostate [facility] Diagnosis Abnormal blood chemistry- Primary Other abnormal blood chemistry Liver transplant recipient Kidney replaced by transplant Immunosuppressed status Unspecified disorder of immune mechanism Aftercare following organ transplant [facility] Diagnosis Kidney replaced by transplant- Primary [facility] Diagnosis Immunosuppressed status- Primary Unspecified disorder of immune mechanism Kidney replaced by transplant Aftercare following organ transplant High risk medication use Encounter for long-term (current) use of other medications Other general symptoms and signs Abnormal blood chemistry Other abnormal blood chemistry Hypertension secondary to other renal disorders [facility] Diagnosis Histoplasmosis- Primary Histoplasmosis, unspecified [...] Fever, unspecified [facility] Consultation (Routine) - New Request Specialty Diagnoses / Procedures Referred By Deni edwards Referred To Contact Interventional Radiology Diagnoses Hydronephrosis due to obstruction of ureteral orifice Daya Saldana MD [address] [place] [address] Referral ID Status Reason Start Date Expiration Date V isits Requested Visits Authorized [id number] New Request 05/18/2022 06/12/2023 1 1 * Radiology (Emergency) - New Request Specialty Diagnoses / Procedures Referred By Deni edwards Referred To Contact Procedures US RENAL TRANSPLANT SCAN Daya Saldana MD [address] [place] [address] Referral ID Status Reason Start Date Expiration Date V isits Requested Visits Authorized [id number] New Request 05/16/2022 06/10/2023 1 1 * Consultation (Routine) - New Request Specialty Diagnoses / Procedures Referred By Deni edwards Referred To Contact Urology Diagnoses FAYE (acute kidney injury) Ryan Yepez MD [address] [facility] [address] [place] [address] Referral ID Status Reason Start Date Expiration Date V isits Requested Visits Authorized [id number] New Request 05/16/2022 06/10/2023 1 1 * MRI/CAT Scan (Routine) - New Request Specialty Diagnoses / Procedures Referred By Contac t Referred To Contact Diagnoses FAYE (acute kidney injury) Procedures CT ABDOMEN/PELVIS WITHOUT CONTRAST CHG CT SCAN,ABDOMENT AND PELVIS,W/O CONTRAST Ryan Yepez MD [address] [place] [address] Referral ID Status Reason Start Date Expiration Date V isits Requested Visits Authorized [id number] New Request 05/16/2022 06/10/2023 1 1 * (Routine) - Pending Review Specialty Diagnoses / Procedures Referred By Contac t Referred To Contact Procedures PLATELET MONITORING PER PROTOCOL Daya Saldana MD [address] [place] [address] Referral ID Status Reason Start Date Expiration Date V isits Requested Visits Authorized [id number] Pending Review 05/15/2022 06/09/2023 1 1 * (Routine) - Pending Review Specialty Diagnoses / Procedures Referred By Contac t Referred To Contact Procedures DVT/VTE RISK ASSESSMENT Daya Saldana MD [address] [place] [address] Referral ID Status Reason Start Date Expiration Date V isits Requested Visits Authorized [id number] Pending Review 05/15/2022 06/09/2023 1 1 * (Routine) Specialty Diagnoses / Procedures Referred By Contac t Referred To Contact Evan Bennett MD [address] [place] [address] Referral ID Status Reason Start Date Expiration Date Visits Re quested Visits Authorized * (Routine) Specialty Diagnoses / Procedures Referred By Deni t Referred To Contact Evan Bennett MD [address] [place] [address] Referral ID Status Reason Start Date Expiration Date Visits Re quested Visits Authorized [facility] for referral (narrative)* Consultation (Routine) - New Request Specialty Diagnoses / Procedures Referred By Deni t Referred To Contact Sleep Medicine Diagnoses Hypoxia Kevin Sage MD [address], [place] [address] Referral ID Status Reason Start Date Expiration Date V isits Requested Visits Authorized [id number] New Request 09/10/2023 10/04/2024 1 1 * MRI/CAT Scan (Routine) - New Request Specialty Diagnoses / Procedures Referred By Deni t Referred To Contact Diagnoses Histoplasmosis Procedures CT CHEST WITHOUT CONTRAST CHG DIAGNOSTIC COMPUTED TOMOGRAPHY THORAX W/O ROBERTT Kevin Sage MD [address] [place] [address] Referral ID Status Reason Start Date Expiration Date V isits Requested Visits Authorized [id number] New Request 09/10/2023 10/04/2024 1 1 * Radiology (Routine) - New Request Specialty Diagnoses / Procedures Referred By Deni t Referred To Contact Procedures US RENAL TRANSPLANT SCAN Steve Latham MBBS [address] [place] [address] Referral ID Status Reason Start Date Expiration Date V isits Requested Visits Authorized [id number] New Request 08/29/2023 09/22/2024 1 1 * (Routine) - New Request Specialty Diagnoses / Procedures Referred By Contac t Referred To Contact Procedures PLATELET MONITORING PER PROTOCOL Steve Latham MBBS [address] [place] [phone] Referral ID Status Reason Start Date Expiration Date V isits Requested Visits Authorized [id number] New Request 08/28/2023 09/21/2024 1 1 * (Routine) - New Request Specialty Diagnoses / Procedures Referred By Contac t Referred To Contact Procedures DVT/VTE RISK ASSESSMENT Steve Latham MBBS [address] [place] [phone] Referral ID Status Reason Start Date Expiration Date V isits Requested Visits Authorized [id number] New Request 08/28/2023 09/21/2024 1 1 [facility] Instructions * Patient Instructions - Christin Elizabeth APRN-ROB - 10/19/2018 9:21 AM EST You should take an extra dose of the lactulose as needed so that you are having 3-4 bowel movementsdaily. You should start the chemical dependency counseling as soon as possible. If you have questions, call the transplant social work professor Melania Pierson. in this encounter* Patient Instructions - Sophie Cary RN - 10/12/2018 11:09 AM EST You have been seen in the pre-transplant evaluation clinic by Dr. Restrepo and Sophie Cary. Sophie Cary is your pre-on site coordinator she can be reached at [phone] at any time for questions during the pre-transplant process. Your evaluation is complete pendin. Abdominal ultrasound. 2. 6 minute walk test. 3. Cardiology evaluation. Additionally, your middle school special education teacher will recommend testing to screen for coronary artery disease. This will be scheduled for you after your cardiology visit. 4. Your coordinator will be requesting record from your last dental visit, colonoscopy and EGD. 5. Please work to complete social work recommendations. Your social work professor will be contacting you to follow up on your progress. 6. You have also been referred for a kidney transplant. An appointment will be scheduled for you sari evaluated in the kidney transplant clinic after you have satisfied requirements dictated by [employer] company. Once your testing is complete, we [...] ___ Other Name MRN * Christin Elizabeth, MAIL CLERK-SAP GATHERER - 10/19/2018 9:00 AM EST Formatting of this note may be different from the original. History of Present Illness: Chief Complaint Patient presents with Follow-up Cirrhosis George Styles is a 48 y.o. male who presents to the [facility] G[facility]ology [facility] today regarding his diagnosis/chief complaint(s) of Cirrhosis secondary to ETOH, with ESRD follows with Dr. Orr. Currently undergoing evaluation for liver/kidney transplant. Has been seen in transplant clinic for eval. Still undergoing pre testing. Diagnosed in April 2018. Last drink was immediately prior to hospital admission in [place] for ACLF. Hospital course notable for ARF [...] (human immunodeficiency virus infection); Hyperlipidemia; Hyperthyroidism; Hypothyroidism; [place] (myocardial infarction); Migraine; DARLENE (obstructive sleep apnea); [...] kidney transplant evaluation. Pt was AOx3. Transplant Paper Cup Handle Machine Operator role/function was explained and reviewed. The patient was informed that the results of this assessment will be shared with the referring provider and the transplant team. The patient verbalized understanding of this information. The [facility] psychosocial assessment consent form has been explained to patient and has been signed. Pt is completing this evaluation with brother (David) in the Outpatient setting. NANCYK educated pt on the benefits of completing/filing advanced directives and resources were offered. Pt identifies with [employer] spiritism. Pt confirms being a [place] Citizen. Pt.'s primary language is Maltese. Pt confirms the ability to read,write, and understand Maltese. Pt denies potential donors. Donor cards and [...] has valid license, does not regularly drive ([facility] recommends that he not to drive). [...] related disease etoh cirrohosis April dx in [facility] for thirty days. Pt reports [...] as well as referred him to pre on site coordinator. Pt and support demonstrated moderate understanding [...] Patient's brother David is a self employed contractor buyer. Additional support includes his other brother Tyshawn and his Mary live fifteen minutes away. Of note Mary is a ultrasonic solderer for a [employer] is available to assist partner manager. He confirms being comfortable asking for [...] in 2010, he was employed by the [email or web address]. He has access to SSDI payment (SSDI starts in November) in regards to financial means pre/ post-transplant. Pt confirms (meeting bills currently, ) being able to meet daily needs. Patient's brother asking for additional information on community resources, food stamps and [place]. Refer him to pt.'s dialysis center and the [facility]. Hereports access to Medicaid. Pt. denies history. [...] court ordered treatment after a DUI charge [facility] in [place], court ordered treatment in 2001 and in [...] by patient from his primary medical provider- SAP GATHERER patient was noted as attending an alcohol [...] He was provided with local AOD resources, [facility] AOD informational packet. Pt was referred for [...] new visit Date of service: 10/12/2018 -Referring analytical strategist for today's consult: -Primary Care Provider: Zuly Bruno CC: Chief Complaint Patient presents with Liver Recipient Evaluation History of Present Illness George Styles is a 48 y.o. male who presents to the [facility] liver transplant surgery clinic today for [...] processes progressing rapidly Unknown * Elisa Tiwari, RESIDENT ASSOCIATE - 10/12/2018 10:00 AM EST Timed up and go 9.9 seconds Customer Service Advocate Left 52.8 pounds Right 44.9 pounds Waist circ 38.5 inches * Sophie Cary, RN - 10/12/2018 10:00 AM EST Formatting of this note may be different from the original. Patient George Styles ([id number]), accompanied by his brother, was seen on [...] any further questions. Sophie DON, RN Liver Quality Systems Specialist Etiology: ETOH HCC: No ETOH: Yes [...] Yovani Orr MD [address] [address] Status Reason Specialty Diagnoses / Procedures Referred By Contact Referred To Contact New Request Diagnoses Cirrhosis of liver with ascites, unspecified hepatic cirrhosis type Procedures US ABDOMEN RUQ/LIVER/GB Yovani Orr MD [address] [address] Specialty Diagnoses / Procedures Referred By Contac t Referred To Contact Diagnoses FAYE (acute kidney injury) Procedures CT ABDOMEN/PELVIS WITHOUT CONTRAST CHG CT SCAN,ABDOMENT AND PELVIS,W/O CONTRAST Central Scheduling [address] [place] [phone] Referral ID Status Reason Start Date Expiration Date V isits Requested Visits Authorized [id number] Pending Review 05/16/2022 06/10/2023 1 1 Specialty Diagnoses / Procedures Referred By Contac t Referred To Contact Diagnoses Other hydronephrosis Procedures [facility] Ryan Yepez MD [address] [facility] [address] [place] [address] Referral ID Status Reason Start Date Expiration Date V isits Requested Visits Authorized [id number] New Request 07/07/2022 08/01/2023 1 1 Specialty Diagnoses / Procedures Referred By Contac t Referred To Contact Procedures DIRECT ADMIT REQUEST Steve Latham MBBS [address] [place] [address] Referral ID Status Reason Start Date Expiration Date V isits Requested Visits Authorized [id number] New Request 08/28/2023 09/21/2024 1 1 Advance Directives No Advanced Directives Records FoundDocuments on File Type Date Recorded Patient Test Manager Expl anation Advance Directives and Living Will Power of Leasing Consultant Latest Code Status on File Code Status [...] Yovani Orr MD [address] [address] Status Reason Specialty Diagnoses / Procedures Referre d By Contact Referred To Contact Denied Diagnoses Alcoholic cirrhosis, unspecified whether ascites present Pre-transplant evaluation for liver transplant Procedures MRI ABDOMEN WITH CONTRAST NE MRI, ABDOMEN W/CONTRAST Yovani Orr MD [address] [address] Reason Comments Liver Recipient Evaluation Status Reason Specialty Diagnoses / Procedures Referred By Contact Referred To Contact New Request Transplant / Transplant Surgery Procedures PRE NEW PATIENT Yovani Orr MD [address] [address] Alfredito Restrepo MD [address] [place] [address] Reason Comments Reschedule Reason Comments Outside Medical Records Request Reason Comments Social Work Follow-up Reason Comments Kidney Stone Specialty Diagnoses / Procedures Referred By Contac t Referred To Contact Diagnoses Obstructing kidney stone, s/p kidney transplant 2019 Daya Saldana MD [address] [place] [address] [facility] [address] [place] [address] Referral ID Status Reason Start Date Expiration Date Visits Re quested Visits Authorized [id number] 1 1 Reason Comments Follow-up Reason Comments Kidney Recipient Follow-up Liver Recipient Follow-up Reason Comments Consult Reason Comments New Patient Hospital follow up Specialty Diagnoses / Procedures Referred By Contac t Referred To Contact Urology Diagnoses hosp fu with [address] prior Procedures NEW TO DOC/RET PATIENT Zuly Bruno CNP [address] [place] [address] Ryan Yepez MD [facility] [address] [place] [address] Referral ID Status Reason Start Date Expiration Date Visits Re quested Visits Authorized [id number] Closed 06/27/2022 07/22/2023 1 1 Specialty Diagnoses / Procedures Referred By Socorroac t Referred To Contact Diagnoses FAYE (acute kidney injury) Procedures CT ABDOMEN/PELVIS WITHOUT CONTRAST CHG CT SCAN,ABDOMENT AND PELVIS,W/O CONTRAST Central Scheduling [address] [place] [phone] Referral ID Status Reason Start Date Expiration Date V isits Requested Visits Authorized [id number] Pending Review 05/16/2022 06/10/2023 1 1 Reason Comments Follow-up Specialty Diagnoses / Procedures Referred By Contac t Referred To Contact Urology Diagnoses 1 week fu post NT clamp Procedures RETURN PATIENT Zuly Bruno CNP [address] [place] [address] Ryan Yepez MD [address] [facility] [address] [place] [address] Referral ID Status Reason Start Date Expiration Date Visits Requested Visits Authorized [id number] Authorized - 07/07/2022 08/01/2023 2 2 Specialty Diagnoses / Procedures Referred By Deni edwards Referred To Contact Diagnoses Other hydronephrosis Procedures [facility] Ryan Yepez MD [address] [facility] [address] [place] [address] Referral ID Status Reason Start Date Expiration Date V isits Requested Visits Authorized [id number] New Request 07/07/2022 08/01/2023 1 1 Specialty Diagnoses / Procedures Referred By Deni edwards Referred To Contact Urology Diagnoses 1 week fu post NT clamp Procedures RETURN PATIENT Zuly Bruno, SAP GATHERER [address] [place] [address] Rayn Yepez MD [address] [facility] [address] [place] [address] Referral ID Status Reason Start Date Expiration Date Visits Re quested Visits Authorized [id number] Closed 07/07/2022 08/01/2023 2 2 Reason Comments Liver Recipient Follow-up Reason Comments Kidney Recipient Follow-up Reason Comments Kidney Recipient Follow-up Specialty Diagnoses / Procedures Referred By Deni edwards Referred To Contact Diagnoses Kidney replaced by transplant Steve Latham MBBS [address] [place] [address] [facility] [address] [place] [address] Referral ID Status Reason Start Date Expiration Date Visits Re quested Visits Authorized [id number] 1 1 (unrecognized sect ion and content) No Status Records FoundNo Status Records FoundNo Status Records FoundNo Status Records FoundNo Status Records FoundNo Status Records Found INFORMATION SOURCE (unrecogn ized section and content) DATE CREATED AUTHOR 01/07/2020 Karlie ariza DATE CREATED AUTHOR AUTHOR'S ORGANIZ ATION 01/27/2021 [facility] DATE CREATED AUTHOR AUTHOR'S ORGANIZ ATION 04/13/2023 [facility] DATE CREATED AUTHOR AUTHOR'S ORGANIZ ATION 05/11/2023 [facility] DATE CREATED AUTHOR AUTHOR'S ORGANIZ ATION 10/26/2023 [facility] DATE CREATED AUTHOR AUTHOR'S ORGANIZ ATION 11/05/2023 [facility] Specialists EPIC Care Teams (unrecognized sec tion and content) Helminthology Teacher Relationship Specialty Start Date End Date Zuly Bruno CNP PCP - General 07/19/18 Comfort Rivera [facility] [address] [facility] [address] [place] [address] Pharmacist Pharmacist 05/16/20 Angel Carpio [facility],PharmD Pharmacist Pharmacist 05/16/20 Te Leigh [facility],PharmD Pharmacist Pharmacist 01/09/21 Helminthology Teacher Relationship Specialty Start Date End Date Zuly Bruno CNP PCP - General 07/19/18 Comfort Rivera [facility] [address] [facility] [address] [place] [address] Pharmacist Pharmacist 05/16/20 Angel Carpio [facility],PharmD Pharmacist Pharmacist 05/16/20 Te Leigh [facility],PharmD Pharmacist Pharmacist 01/09/21 Helminthology Teacher Relationship Specialty Start Date End Date Zuly Bruno CNP PCP - General 07/19/18 Helminthology Teacher Relationship Specialty Start Date End Date Zuly Bruno CNP PCP - General 07/19/18 Helminthology Teacher Relationship Specialty Start Date End Date Zuly Bruno CNP PCP - General 07/19/18 Helminthology Teacher Relationship Specialty Start Date End Date Zuly Bruno CNP PCP - General 07/19/18 Helminthology Teacher Relationship Specialty Start Date End Date Zuly Bruno CNP PCP - General 07/19/18 Helminthology Teacher Relationship Specialty Start Date End Date Zuly Bruno CNP PCP - General 07/19/18 Helminthology Teacher Relationship Specialty Start Date End Date Zuly Bruno CNP PCP - General 07/19/18 Helminthology Teacher Relationship Specialty Start Date End Date Zuly Bruno CNP PCP - General 07/19/18 Helminthology Teacher Relationship Specialty Start Date End Date Zuly Bruno CNP PCP - General 07/19/18 Helminthology Teacher Relationship Specialty Start Date End Date Zuly Bruno CNP PCP - General 07/19/18 Helminthology Teacher Relationship Specialty Start Date End Date Zuly Bruno CNP PCP - General 07/19/18 Helminthology Teacher Relationship Specialty Start Date End Date Zuly Bruno CNP PCP - General 07/19/18 Helminthology Teacher Relationship Specialty Start Date End Date LexiesylvesterlatishaZuly tipton CNP PCP - General 07/19/18 Helminthology Teacher Relationship Specialty Start Date End Date Lexiesylvesterjose eZuly ROB PCP - General 07/19/18 Helminthology Teacher Relationship Specialty Start Date End Date Zuly Bruno CNP PCP - General 07/19/18 Evan White DO [address] [place], [place] [id number] Infectious Disease Infectious Disease 09/09/23 Helminthology Teacher Relationship Specialty Start Date End Date Zuly Bruno CNP PCP - General 07/19/18 Evan White DO [address] [place], [place] [id number] Infectious Disease Infectious Disease 09/09/23 Helminthology Teacher Relationship Specialty Start Date End Date Zuly BrunoROB PCP - General 07/19/18 Evan White DO [address] [place], [place] [id number] Infectious Disease Infectious Disease 09/09/23 Scheduled Active [...] Braun RN) 09 (Given - Provider: Leon Cook, SAMI) aspirin chewable tablet 81 mg [...] Provider: Mel Hampton RN)1999 (Given - Provider: aCrolyn Isaac RN) 0805 (Given - Provider: Josey [...] Isaac RN)1823 (Restarted - Provider: Carolyn Isaac RN)192 (Rate/Dose Verify - Provider: Carolyn [...] 0900, Until Discontinued 0753 (Given - Provider: iAxa Holden RN) 0829 (Given - Provider: Terra [...] at 1645, Insomnia 2221 (Given - Provider: Griish Nunez, RN) 2205 (Given - Provider: Carolyn [...] BE BASED ON THE PRIMARY CLINICAL RECORDS. [facility]. provides no warranty or guarantee of the accuracy or completeness of information in this document.
[2023-12-25 07:12] LABS: Basophils Percent Auto 0.8 % (0.2-2.0); Eosinophils Absolute Auto 0.1 10^3/uL (0.0-0.7); Eosinophils Percent Auto 2.8 % (0.9-7.0); Hematocrit 46.6 % (42.0-54.0); Hemoglobin 14.9 g/dL (14.0-18.0); Lymphocytes Absolute Auto 1.5 10^3/uL (1.2-3.8); Lymphocytes Percent Auto 41.6 % (20.5-60.0); Mean Corpuscular Hemoglobin 28.3 pg (25.9-34.0); Mean Corpuscular Volume 88.4 fL (80.0-94.0); Monocytes Absolute Auto 0.4 10^3/uL (0.3-0.8); Monocytes Percent Auto 9.8 % (1.7-12.0); Neutrophils Absolute Auto 1.6 10^3/uL (1.4-6.5); Platelet Count 198 10^3/uL (150-450); Red Blood Count 5.27 10^6/uL (4.70-6.10); Red Cell Distribution Width 13.6 % (11.0-15.0); White Blood Count 3.6 10^3/uL (4.0-11.0)
[2023-12-25 07:17] LABS: Creatinine Urine Random 82.99 mg/dL (20.00-300.00); Protein Creatinine Ratio Urine 0.17; Total Protein Urine Random 13.7 mg/dL (<=11.9)
[2023-12-25 07:24] LABS: Alanine Aminotransferase 29 U/L (16-63); Albumin Level 3.9 g/dL (3.4-5.0); Alkaline Phosphatase 97 U/L (46-116); Anion Gap 13.8; Aspartate Amino Transferase 24 U/L (15-37); BUN Creatinine Ratio 12.3; Bilirubin Direct 0.4 mg/dL (0.0-0.2); Bilirubin Total 2.1 mg/dL (0.2-1.0); Calcium 9.3 mg/dL (8.5-10.1); Carbon Dioxide 25.2 mmol/L (21.0-32.0); Chloride 108 mmol/L (98-107); Estimated GFR (African America >60 (>=60); Estimated GFR (Non-African Ame 58 (>=60); Gamma Glutamyl Transpeptidase 17 U/L (15-85); Glucose 100 mg/dL (74-106); Magnesium 1.7 mg/dL (1.8-2.4); Phosphorus 3.6 mg/dL (2.6-4.7); Sodium 143 mmol/L (136-145)
[2023-12-29 19:08] LABS: Tacrolimus (FK506), Blood 5.1 ng/mL (2.0-20.0)
== END 2023-12-25 06:45 | disposition home or self-care (01) ==
LOC: LAB 06:45
PROVIDERS: PCP Nurse Practitioner
DX: Z94.0 Kidney transplant status (principal); R79.9 Abnormal finding of blood chemistry, unspecified; Z48.298 Encounter for aftercare following other organ transplant; D84.9 Immunodeficiency, unspecified; Z94.4 Liver transplant status; B39.9 Histoplasmosis, unspecified
CPT/HCPCS: 36415; 80048; 80189; 80197; 82042; 82247; 82248; 82570; 82977; 83735; 84075; 84100; 84156; 84450; 84460; 85025

== ENCOUNTER 2024-01-01 06:39 | Outpatient (OUT) | payer MEDICARE, MEDICAID, SELFPAY ==
--- OUTSIDE RECORDS SUMMARY | 2024-01-01 06:46 | XMS_ITS | CCD ---
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 Primary Care Provider MIGUEL CARDONA Attending Unavailable MISC, DR BURCH Admitting Unavailable MISC, DR BURCH Consulting Unavailable AICHHOLZ, CAD TECHNICIAN ZULY Primary Care Unavailable MISC, DR BURCH Attending Unavailable MISC, DR BURCH Admitting Unavailable MISC, DR BURCH Consulting Unavailable AICHHOLZ, CAD TECHNICIAN ZULY Primary Care Unavailable MISC, DR BURCH Attending Unavailable ARCELIA PIZARRO Consulting Unavailable KE BURNHAM Attending Unavailable KE BURNHAM Admitting Unavailable DR MÓNICA JIMENEZ Consulting Unavailable AICHHOLZ, CAD TECHNICIAN ZULY Primary Care Unavailable KE BURNHAM Consulting Unavailable MISC, DR DOCTOR Consulting Unavailable MISC, DR DOCTOR Attending Unavailable AICHHOLZ, [facility] ZULY Primary Care Unavailable MISC, DR DOCTOR Admitting Unavailable MISC, DR DOCTOR Consulting Unavailable MISC, DR DOCTOR Attending Unavailable AICHHOLZ, [facility] ZULY Primary Care Unavailable MISC, DOCTOR Admitting Unavailable MISC, DR DOCTOR Consulting Unavailable AICHHOLZ, [facility] ZULY Primary Care Unavailable MISC, DR DOCTOR Admitting Unavailable MISC, DR DOCTOR Attending Unavailable MELINDA, DR GEORGE Munoz Consulting Unavailable MELINDA, DR GEORGE Munoz Attending Unavailable AICHHOLZ, [facility] ZULY Primary Care Unavailable MELINDA, DR GEORGE Munoz Admitting Unavailable NAUN ., KE Consulting Unavailable MIRANDA, LYNDSAY Consulting Unavailable MELINDA, DR GEORGE Munoz Consulting Unavailable NAUN ., EK Attending Unavailable NAUN ., KE Admitting Unavailable AICHHOLZ, [facility] ZULY Primary Care Unavailable NAUN ., KE Consulting Unavailable GIAN HERRING Consulting Unavailable AICHHOLZ, CAD TECHNICIAN ZULY Consulting Unavailable AICHOL, CAD TECHNICIAN ZULY Attending Unavailable AICHHOL, CAD TECHNICIAN ZULY Admitting Unavailable AICHHOL, [facility] ZULY Primary Care Unavailable MISC, DR Consulting Unavailable MISC, DOCTOR Admitting Unavailable MISC, DR DOCTOR Attending Unavailable AICHHOLZ, [facility] ZULY Primary Care Unavailable MISC, DR Consulting Unavailable MISC, DR DOCTOR Attending Unavailable MISC, DR DOCTOR Admitting Unavailable AICHHOLZ, [facility] ZULY Primary Care Unavailable MISC, DR BURCH Admitting Unavailable MISC, DR DOCTOR Consulting Unavailable MISC, DR DOCTOR Attending Unavailable AICHHOL, [facility] ZULY Primary Care Unavailable MISC, DR DOCTOR Admitting Unavailable MISC, DR DOCTOR Consulting Unavailable AICHHOL, [facility] ZULY Primary Care Unavailable MISC, DR DOCTOR Attending Unavailable MISC, DR DOCTOR Admitting Unavailable MISC, DR DOCTOR Consulting Unavailable AICHHOLZ, [facility] ZULY Primary Care Unavailable MISC, DR DOCTOR Attending Unavailable AICHOL, CAD TECHNICIAN ZULY Consulting Unavailable AICHOL, CAD TECHNICIAN ZULY Attending Unavailable AICHOL, [facility] ZULY Admitting Unavailable AICHOL, [facility] ZULY Primary Care Unavailable DR MÓNICA JIMENEZ Consulting Unavailable [facility] Primary Care Provider Cindy WHIPPLE Evan A Unavailable [facility] Primary Care Provider Evan White DO Unavailable AICHHOLZ, ZULY Primary Care Unavailable AICHHOLZ, ZULY Primary Care Unavailable AICHHOLZ, ZULY Primary Care Unavailable STVEE LATHAM Attending Unavailable AICHHOLZ, ZULY Primary Care [...] Propensity to adverse reactions to drug 9 [facility] (1 source) Shellfish Drug allergy (disorder) [facility] Repository Medications Current Medications Medication Drug [...] 1 capsule by mouth once daily b [id number]-fbbvt acid (NEPHROCAPS) 1 MG capsule Take 1 [...] itraconazole Fax results to: Dr. White - [phone] Transplant Neph - [phone] Each 0 09/10/2023 Active Drug or [...] ankle pain. 0 06/12/2020 06/12/2023 Discontinued lactulose 20297 mg powder for oral solution (19 sources) [...] needed. Start: 08-20-2022 take 1 capsule by [facility] every twelve hours Tacrolimus [...] needed. Start: 03-14-2022 take 1 capsule by [facility] every twelve hours tacrolimus [...] Start: 06-19-2022 take 1 capsule by mo [facility] once daily Tamsulosin HCl 0.4 MG capsule Take 1 capsule by mouth daily. 30 capsule 11 06/19/2022 Active Start: 05-23-2022 take 1 capsule by mo [facility] once daily Tamsulosin HCl 0.4 [...] Discontinued Start: 01-15-2023 take 2 tablets by [facility] once daily Allopurinol 100 [...] Start: 12-30-2021 take 2 tablets by mo [facility] once daily allopurinol 100 MG tablet Indications: Abnormal blood chemistry take 2 tablets by mouth once daily 180 tablet 3 12/30/2021 Active Start: 01-28-2021 take 2 tablets by [facility] once daily allopurinol 100 [...] (ROXICODONE) tablet 10 mg polyethylene glycol 3350 00609 mg powder for oral solution (20 sources) [...] ( K-PHOS NEUTRAL) tablet 1,000 mg sennosides, shelter 8.6 mg oral tablet (1 source) Start: [...] Coronary arteriosclerosis; 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: [Atherosclerotic heart disease of [place] coronary artery without angina pectoris] Onset: 04-13-2023 [...] sources) Taking high risk medication; 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: [Other usp (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] Episodic Other aftercare (3 sources) Other long term care social worker (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; 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: [OTH 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 THERAPY] Onset: 07-06-2022 Episodic Other [...] 05-10-2020 Episodic Other aftercare (1 source) intermediate (current) use of aspirin; 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: [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 CURRENT USE OF ASPIRIN] Onset: 06-20-2022 Episodic [...] Anion gap [Moles/Vol] 13 mmol/L Normal 7-17 [facility] Comment on above: Performed By: #### C HM7, MGO ####[facility] (DEFAULT)[address] [place] [address] Chloride [Moles/Vol] 111 mmol/L High 98-108 [facility] Comment on above: Performed By: #### C HM7, MGO ####[facility] (DEFAULT)[address] [place] [address] CO2 [Moles/Vol] 20 mmol/L Low 21-31 [facility] Comment on above: Performed By: #### C HM7, MGO ####[facility] (DEFAULT)[address] [place] [address] Creatinine [Mass/Vol] 1.13 mg/dL Normal 0.70-1.30 [facility] Comment on above: Performed By: #### Chinedu HM7, MGO ####[facility] (DEFAULT)[address] [place] [address] GFR/1.73 sq M.predicted among non-blacks MDRD (S/P/Bld) [Vol rate/Area] 78 mL/min/{1.73_m2} Normal >=60 [facility] Comment on above: Result Comment: Repo rted eGFR is based on the CKD-EPI 2020 equation using creatinine, age, and sex. Performed By: #### C HM7, MGO ####[facility] (DEFAULT)[address] [place] [address] Glucose [Mass/Vol] 109 mg/dL High 70-99 [facility] Comment on above: Performed By: #### C HM7, MGO ####[facility] (DEFAULT)[address] [place] [address] Osmolality [Osmolality] 295 mosm/kg Normal 278-305 [facility] Comment on above: Performed By: #### Chinedu HM7, MGO ####[facility] (DEFAULT)[address] [place] [address] Potassium [Moles/Vol] 4.3 mmol/L Normal 3.5-5.0 [facility] Comment on above: Performed By: #### C HM7, MGO ####[facility] (DEFAULT)[address] [place] [address] Sodium [Moles/Vol] 140 mmol/L Normal 135-145 [facility] Comment on above: Performed By: #### Chinedu HM7, MGO ####[facility] (DEFAULT)[address] [place] [address] Urea nitrogen [Mass/Vol] 16 mg/dL Normal 7-25 [facility] Comment on above: Performed By: #### Chinedu HM7, MGO ####[facility] (DEFAULT)[address] [place] [address] Urea nitrogen/Creatinine [Mass ratio] 14 mg/mg Normal [facility] Comment on above: Performed By: #### Chinedu HM7, MGO ####[facility] (DEFAULT)[address] [place] [address] Anion gap [Moles/Vol] 13 mmol/L 7 - 17 mmol/L [facility] Chloride [Moles/Vol] 111 mmol/L High 98 - 10 8 mmol/L [facility] CO2 [Moles/Vol] 20 mmol/L Low 21 - 31 mmol/L [facility] Creatinine [Mass/Vol] 1.13 mg/dL 0.70 - 1.30 mg/dL [facility] eGFR, CKD-EPI, Male 78 [facility] Glucose [Mass/Vol] 109 mg/dL High 70 - 99 mg/dL [facility] Interpretation and review of laboratory results Abnormal [facility] Osmolality Calc [Osmolality] 295 [facility] Potassium [Moles/Vol] 4.3 mmol/L 3.5 - 5.0 mmol/L [facility] Sodium [Moles/Vol] 140 mmol/L 135 - 145 mmol/L [facility] Urea nitrogen [Mass/Vol] 16 mg/dL 7 - 25 mg/dL [facility] Urea nitrogen/Creatinine [Mass ratio] 14 mg/mg [facility] GLUCOSE POCon 09-11-2023 Glucose [Mass/Vol] 108 mg/dL High 70 - 99 mg/dL [facility] Interpretation and review of laboratory results Abnormal [facility] POC Sample Type CAPBL [facility] Legionella sp identified Org specific cx Nom (Unsp spec)on 09-11-2023 Bacteria identified Cx Nom (Unsp spec) NO GROWTH DAY 7 OF 7 [facility] MAGNESIUMon 09-11-2023 Magnesium [Mass/Vol] 1.6 mg/dL Normal 1.6-2.6 [facility] Comment on above: Performed By: #### C 7, MGO ####[facility] (DEFAULT)[address] [place] [address] Interpretation and review of laboratory results Normal [facility] Magnesium [Mass/Vol] 1.6 mg/dL 1.6 - 2 .6 mg/dL [facility] No Panel Informationon 09-11 [facility] TACROLIMUS LEVEL, TROUGH (HI E DRUG LEVEL)on 09-11-2023 Interpretation and review of laboratory results Normal [facility] Tacrolimus (Bld) [Mass/Vol] 11.5 ng/mL [facility] Tacrolimus, Trough 11.5 ng/mL Normal Bone Susana ow Transplant: 4.0-12.0, Therapeutic: 5.0-15.0 [facility] Comment on above: Order Comment: Pleas e draw at specified interval PRIOR to dose. Do not hold dose to wait for level. Specimens batched twice per day, (M-F) and once per day weekendsMethod performed is a chemiluminescent microparticle immunoasssay on the SOAK (Smart Operational Agricultural toolKit) Fishery Biologist i2000.The range is based on experience at [facility] and users should be aware that target concentrations vary widely depending on concomitant therapy, time post-transplant, and desired degree of immunosuppression. Performed By: #### T ACRO ####[facility] (DEFAULT)[address] [facility] [place] [address] CBC,PLATELETSon 09-10-2023 Hematocrit (Bld) [Volume fraction] 40.0 % Normal 39.6-48.8 [facility] Comment on above: Performed By: #### H EMOGC ####[facility] (DEFAULT)[address] [place] [address] Hemoglobin (Bld) [Mass/Vol] 12.7 g/dL Low 13.4-16.8 [facility] Comment on above: Performed By: #### H EMOGC ####[facility] (DEFAULT)[address] [place] [address] MCV (RBC) [Entitic vol] 86.0 fL Normal 79.0-94.5 [facility] Comment on above: Performed By: #### H EMOGC ####[facility] (DEFAULT)[address] [place] [address] Mean Cell Hgb 27.3 pg Normal 26.1-33.3 [facility] Comment on above: Performed By: #### H EMOGC ####[facility] (DEFAULT)[address] [place] [address] Mean Cell Hgb Conc 31.8 g/dL Low 31.9-36.5 [facility] Comment on above: Performed By: #### H EMOGC ####[facility] (DEFAULT)[address] [place] [address] Platelet mean volume (Bld) [Entitic vol] 9.5 fL Normal 8.7-12.3 [facility] Comment on above: Performed By: #### H EMO ####[facility] (DEFAULT)[address] [place] [address] Platelets (Bld) [#/Vol] 225 10*3/uL Normal 146-337 [facility] Comment on above: Performed By: #### H EMO ####[facility] (DEFAULT)[address] [place] [address] RBC (Bld) [#/Vol] 4.65 10*6/uL Normal 4.38-5.83 [facility] Comment on above: Performed By: #### H EMO ####[facility] (DEFAULT)[address] [place] [address] RBC Distribution 13.9 % Normal 10.9-14.3 [facility] Comment on above: Performed By: #### H EMO ####[facility] (DEFAULT)[address] [place] [address] WBC (Bld) [#/Vol] 6.52 10*3/uL Normal 3.73-10.10 [facility] Comment on above: Performed By: #### H EMO ####[facility] (DEFAULT)[address] [place] [address] Erythrocyte distribution width (RBC) [Ratio] 13.9 % 10.9 - 14.3 % [facility] Hematocrit (Bld) [Volume fraction] 40.0 % 39.6 - 48.8 % [facility] Hemoglobin (Bld) [Mass/Vol] 12.7 g/dL Low 13.4 - 16.8 g/dL [facility] Interpretation and review of laboratory results Abnormal [facility] MCH (RBC) [Entitic mass] 27.3 pg 26.1 - 33.3 pg [facility] MCHC (RBC) [Mass/Vol] 31.8 g/dL Low 31.9 - 36.5 g/dL [facility] MCV (RBC) [Entitic vol] 86.0 fL 79.0 - 94.5 fL [facility] Platelet mean volume (Bld) [Entitic vol] 9.5 fL 8.7 - 12.3 fL [facility] Platelets (Bld) [#/Vol] 225 10*3/uL 146 - 337 K/uL [facility] RBC (Bld) [#/Vol] 4.65 10*6/uL [facility] WBC (Bld) [#/Vol] 6.52 10*3/uL 3.73 - 10. 10 K/uL [facility] CHEM 7 (LYTES,BUN,CREA,GLUC) on 09-10-2023 Anion gap [Moles/Vol] 13 mmol/L Normal 7-17 [facility] Comment on above: Performed By: #### T ACRO #### [facility] (DEFAULT) [address] [address] Chloride [Moles/Vol] 111 mmol/L High 98-108 [facility] Comment on above: Performed By: #### T ACRO #### [facility] (DEFAULT) [address] [address] CO2 [Moles/Vol] 20 mmol/L Low 21-31 [facility] Comment on above: Performed By: #### T ACRO #### [facility] (DEFAULT) [address] [address] Creatinine [Mass/Vol] 1.27 mg/dL Normal 0.70-1.30 [facility] Comment on above: Performed By: #### T ACRO #### [facility] (DEFAULT) [address] [address] GFR/1.73 sq M.predicted among non-blacks MDRD (S/P/Bld) [Vol rate/Area] 68 mL/min/{1.73_m2} Normal >=60 [facility] Comment on above: Result Comment: Repo rted eGFR is based on the CKD-EPI 2020 equation using creatinine, age, and sex. Performed By: #### T ACRO #### [facility] (DEFAULT) [address] [place] [address] Glucose [Mass/Vol] 100 mg/dL High 70-99 [facility] Comment on above: Performed By: #### T ACRO #### [facility] (DEFAULT) [address] [place] [address] Osmolality [Osmolality] 293 mosm/kg Normal 278-305 [facility] Comment on above: Performed By: #### T ACRO #### [facility] (DEFAULT) [address] [place] [address] Potassium [Moles/Vol] 4.4 mmol/L Normal 3.5-5.0 [facility] Comment on above: Performed By: #### T ACRO #### [facility] (DEFAULT) [address] [place] [address] Sodium [Moles/Vol] 140 mmol/L Normal 135-145 [facility] Comment on above: Performed By: #### T ACRO #### [facility] (DEFAULT) [address] [place] [address] Urea nitrogen [Mass/Vol] 12 mg/dL Normal 7-25 [facility] Comment on above: Performed By: #### T ACRO #### [facility] (DEFAULT) [address] [place] [address] Urea nitrogen/Creatinine [Mass ratio] 9 mg/mg Normal [facility] Comment on above: Performed By: #### T ACRO #### [facility] (DEFAULT) [address] [place] [address] Anion gap [Moles/Vol] 13 mmol/L 7 - 17 mmol/L [facility] Chloride [Moles/Vol] 111 mmol/L High 98 - 10 8 mmol/L [facility] CO2 [Moles/Vol] 20 mmol/L Low 21 - 31 mmol/L [facility] Creatinine [Mass/Vol] 1.27 mg/dL 0.70 - 1.30 mg/dL [facility] eGFR, CKD-EPI, Male 69 - PINF [facility] Glucose [Mass/Vol] 100 mg/dL High 70 - 99 mg/dL [facility] Osmolality Calc [Osmolality] 293 [facility] Potassium [Moles/Vol] 4.4 mmol/L 3.5 - 5.0 mmol/L [facility] Sodium [Moles/Vol] 140 mmol/L 135 - 145 mmol/L [facility] Urea nitrogen [Mass/Vol] 12 mg/dL 7 - 25 mg/dL [facility] Urea nitrogen/Creatinine [Mass ratio] 9 mg/mg [facility] HEPATIC FUNCTION PANELon Albumin [Mass/Vol] 3.3 g/dL Low 3.5-5.0 [facility] Comment on above: Performed By: #### T ACRO #### [facility] (DEFAULT) [address] [place] [address] ALP [Catalytic activity/Vol] 143 U/L High 32-126 [facility] Comment on above: Performed By: #### T ACRO #### [facility] (DEFAULT) [address] [place] [address] ALT [Catalytic activity/Vol] 28 U/L Normal 10-52 [facility] Comment on above: Performed By: #### T ACRO #### [facility] (DEFAULT) [address] [place] [address] AST [Catalytic activity/Vol] 29 U/L Normal 10-39 [facility] Comment on above: Performed By: #### T ACRO #### [facility] (DEFAULT) [address] [place] [address] Bilirubin [Mass/Vol] 0.9 mg/dL Normal <1.5 [facility] Comment on above: Performed By: #### T ACRO #### [facility] (DEFAULT) [address] [place] [address] Bilirubin.indirect [Mass/Vol] 0.2 mg/dL Normal <0.3 [facility] Comment on above: Performed By: #### T ACRO #### [facility] (DEFAULT) [address] [place] [address] Protein [Mass/Vol] 6.8 g/dL Normal 6.4-8.3 [facility] Comment on above: Performed By: #### T ACRO #### [facility] (DEFAULT) [address] [place] [address] Albumin [Mass/Vol] 3.3 g/dL Low 3.5 - 5.0 g/dL [facility] ALP [Catalytic activity/Vol] 143 U/L High 32 - 126 U/L [facility] ALT [Catalytic activity/Vol] 28 U/L 10 - 52 U/L [facility] AST [Catalytic activity/Vol] 29 U/L 10 - 39 U/L [facility] Bilirubin [Mass/Vol] 0.9 mg/dL [facility] - 1.5 mg/dL [facility] Bilirubin.direct [Mass/Vol] 0.2 mg/dL NINF - 0.3 mg/dL [facility] Protein [Mass/Vol] 6.8 g/dL 6.4 - 8.3 g/dL [facility] MAGNESIUMon 09-10-2023 Magnesium [Mass/Vol] 1.9 mg/dL Normal 1.6-2.6 [facility] Comment on above: Performed By: #### T ACRO #### [facility] (DEFAULT) [address] [place] [address] Interpretation and review of laboratory results Normal [facility] Magnesium [Mass/Vol] 1.9 mg/dL 1.6 - 2 .6 mg/dL [facility] No Panel Informationon 09-10 Interpretation and review of laboratory results Abnormal [facility] TACROLIMUS LEVEL, TROUGH (HI E DRUG LEVEL)Ordered By: Jimy Castillo on 09-10-2023 Interpretation and review of laboratory results Normal [facility] Tacrolimus (Bld) [Mass/Vol] 11.8 ng/mL [facility] TACROLIMUS LEVEL, TROUGH (HI E DRUG LEVEL)on 09-10-2023 Tacrolimus, Trough 11.8 ng/mL Normal Bone Susana ow Transplant: 4.0-12.0, Therapeutic: 5.0-15.0 [facility] Comment on above: Order Comment: Pleas e draw at specified interval PRIOR to dose. Do not hold dose to wait for level. Specimens batched twice per day, (M-F) and once per day weekends Method performed is a chemiluminescent microparticle immunoasssay on the SOAK (Smart Operational Agricultural toolKit) Fishery Biologist i2000. The range is based on experience at [facility] and users should be aware that target concentrations vary widely depending on concomitant therapy, time post-transplant, and desired degree of immunosuppression. Performed By: #### T ACRO #### [facility] (DEFAULT) [address] [place] [address] CHEM 7 (LYTES,BUN,CREA,GLUC) on 09-09-2023 Anion gap [Moles/Vol] 14 mmol/L Normal 7-17 [facility] Comment on above: Performed By: #### C HM7, IPB, MGO ####[facility] (DEFAULT)[address] [place] [address] Chloride [Moles/Vol] 113 mmol/L High 98-108 [facility] Comment on above: Performed By: #### C HM7, IPB, MGO ####[facility] (DEFAULT)[address] [place] [address] CO2 [Moles/Vol] 18 mmol/L Low 21-31 [facility] Comment on above: Performed By: #### C HM7, IPB, MGO ####[facility] (DEFAULT)[address] [place] [address] Creatinine [Mass/Vol] 1.03 mg/dL Normal 0.70-1.30 [facility] Comment on above: Performed By: #### JO ANN GONG MGO ####[facility] (DEFAULT)[address] [place] [address] GFR/1.73 sq M.predicted among non-blacks MDRD (S/P/Bld) [Vol rate/Area] 87 mL/min/{1.73_m2} Normal >=60 [facility] Comment on above: Result Comment: Repo rted eGFR is based on the CKD-EPI 2020 equation using creatinine, age, and sex. Performed By: #### JO ANN GONG, MGO ####[facility] (DEFAULT)[address] [place] [address] Glucose [Mass/Vol] 106 mg/dL High 70-99 [facility] Comment on above: Performed By: #### JO ANN GONG, MGO ####[facility] (DEFAULT)[address] [place] [address] Osmolality [Osmolality] 294 mosm/kg Normal 278-305 [facility] Comment on above: Performed By: #### JO ANN GONG, MGO ####[facility] (DEFAULT)[address] [place] [address] Potassium [Moles/Vol] 4.0 mmol/L Normal 3.5-5.0 [facility] Comment on above: Performed By: #### JO ANN GONG, MGO ####[facility] (DEFAULT)[address] [place] [address] Sodium [Moles/Vol] 141 mmol/L Normal 135-145 [facility] Comment on above: Performed By: #### JO ANN GONG, MGO ####[facility] (DEFAULT)[address] [place] [address] Urea nitrogen [Mass/Vol] 10 mg/dL Normal 7-25 [facility] Comment on above: Performed By: #### JO ANN GONG MGO ####[facility] (DEFAULT)[address] [place] [address] Urea nitrogen/Creatinine [Mass ratio] 10 mg/mg Normal [facility] Comment on above: Performed By: #### JO ANN GONG MGO ####[facility] (DEFAULT)[address] [place] [address] Anion gap [Moles/Vol] 14 mmol/L 7 - 17 mmol/L [facility] Chloride [Moles/Vol] 113 mmol/L High 98 - 10 8 mmol/L [facility] CO2 [Moles/Vol] 18 mmol/L Low 21 - 31 mmol/L [facility] Creatinine [Mass/Vol] 1.03 mg/dL 0.70 - 1.30 mg/dL [facility] eGFR, CKD-EPI, Male 87 - PINF [facility] Glucose [Mass/Vol] 106 mg/dL High 70 - 99 mg/dL [facility] Interpretation and review of laboratory results Abnormal [facility] Osmolality Calc [Osmolality] 294 [facility] Potassium [Moles/Vol] 4.0 mmol/L 3.5 - 5.0 mmol/L [facility] Sodium [Moles/Vol] 141 mmol/L 135 - 145 mmol/L [facility] Urea nitrogen [Mass/Vol] 10 mg/dL 7 - 25 mg/dL [facility] Urea nitrogen/Creatinine [Mass ratio] 10 mg/mg [facility] MAGNESIUMon 09-09-2023 Magnesium [Mass/Vol] 1.6 mg/dL Normal 1.6-2.6 [facility] Comment on above: Performed By: #### JO ANN GONG, MGO ####[facility] (DEFAULT)[address] [place] [address] Magnesium [Mass/Vol] 1.6 mg/dL 1.6 - 2 .6 mg/dL [facility] No Panel Informationon 09-09 Interpretation and review of laboratory results Normal [facility] PHOSPHATE, INORGANICon 09-09 Phosphorous 3.8 mg/dL Normal 2.2-4.6 [facility] Comment on above: Performed By: #### C HM7, IPB, MGO ####[facility] (DEFAULT)[address] [place] [address] Phosphate [Mass/Vol] 3.8 mg/dL 2.2 - 4 .6 mg/dL [facility] TACROLIMUS LEVEL, TROUGH (HI E DRUG LEVEL)on 09-09-2023 Interpretation and review of laboratory results Normal [facility] Tacrolimus (Bld) [Mass/Vol] 9.2 ng/mL [facility] Tacrolimus, Trough 9.2 ng/mL Normal [facility] Susana ow Transplant: 4.0-12.0, Therapeutic: 5.0-15.0 [facility] Comment on above: Order Comment: Pleas e draw at specified interval PRIOR to dose. Do not hold dose to wait for level. Specimens batched twice per day, (M-F) and once per day weekendsMethod performed is a chemiluminescent microparticle immunoasssay on the [employer] i2000.The range is based on experience at [facility] and users should be aware that target concentrations vary widely depending on concomitant therapy, time post-transplant, and desired degree of immunosuppression. Performed By: #### H EMO #### [facility] (DEFAULT) [address] [place] [address] CBC,PLATELETSon 09-08-2023 Hematocrit (Bld) [Volume fraction] 36.1 % Low 39.6-48.8 [facility] Comment on above: Performed By: #### T ACRO #### [facility] (DEFAULT) [address] [place] [address] Hemoglobin (Bld) [Mass/Vol] 11.6 g/dL Low 13.4-16.8 [facility] Comment on above: Performed By: #### T ACRO #### [facility] (DEFAULT) [address] [place] [address] MCV (RBC) [Entitic vol] 85.1 fL Normal 79.0-94.5 [facility] Comment on above: Performed By: #### T ACRO #### [facility] (DEFAULT) [address] [place] [address] Mean Cell Hgb 27.4 pg Normal 26.1-33.3 [facility] Comment on above: Performed By: #### T ACRO #### [facility] (DEFAULT) [address] [address] Mean Cell Hgb Conc 32.1 g/dL Normal 31.9-36.5 [facility] Comment on above: Performed By: #### T ACRO #### [facility] (DEFAULT) [address] [address] Platelet mean volume (Bld) [Entitic vol] 9.5 fL Normal 8.7-12.3 [facility] Comment on above: Performed By: #### T ACRO #### [facility] (DEFAULT) [address] [address] Platelets (Bld) [#/Vol] 182 10*3/uL Normal 146-337 [facility] Comment on above: Performed By: #### T ACRO #### [facility] (DEFAULT) [address] [place] [address] RBC (Bld) [#/Vol] 4.24 10*6/uL Low 4.38-5.83 [facility] Comment on above: Performed By: #### T ACRO #### [facility] (DEFAULT) [address] [address] RBC Distribution 13.6 % Normal 10.9-14.3 [facility] Comment on above: Performed By: #### T ACRO #### [facility] (DEFAULT) [address] [place] [address] WBC (Bld) [#/Vol] 4.59 10*3/uL Normal 3.73-10.10 [facility] Comment on above: Performed By: #### T ACRO #### [facility] (DEFAULT) [address] [place] [address] Erythrocyte distribution width (RBC) [Ratio] 13.6 % 10.9 - 14.3 % [facility] Hematocrit (Bld) [Volume fraction] 36.1 % Low 39.6 - 48.8 % [facility] Hemoglobin (Bld) [Mass/Vol] 11.6 g/dL Low 13.4 - 16.8 g/dL [facility] Interpretation and review of laboratory results Abnormal [facility] MCH (RBC) [Entitic mass] 27.4 pg 26.1 - 33.3 pg [facility] MCHC (RBC) [Mass/Vol] 32.1 g/dL 31.9 - 36.5 g/dL [facility] MCV (RBC) [Entitic vol] 85.1 fL 79.0 - 94.5 fL [facility] Platelet mean volume (Bld) [Entitic vol] 9.5 fL 8.7 - 12.3 fL [facility] Platelets (Bld) [#/Vol] 182 10*3/uL 146 - 337 K/uL [facility] RBC (Bld) [#/Vol] 4.24 10*6/uL [facility] WBC (Bld) [#/Vol] 4.59 10*3/uL 3.73 - 10. 10 K/uL [facility] CHEM 7 (LYTES,BUN,CREA,GLUC) on 09-08-2023 Anion gap [Moles/Vol] 12 mmol/L Normal 7-17 [facility] Comment on above: Performed By: #### H EMOGC #### [facility] (DEFAULT) [address] [place] [address] Chloride [Moles/Vol] 113 mmol/L High 98-108 [facility] Comment on above: Performed By: #### H EMO #### [facility] (DEFAULT) [address] [address] CO2 [Moles/Vol] 21 mmol/L Normal 21-31 [facility] Comment on above: Performed By: #### H EMO #### [facility] (DEFAULT) [address] [address] Creatinine [Mass/Vol] 1.14 mg/dL Normal 0.70-1.30 [facility] Comment on above: Performed By: #### H EMO #### [facility] (DEFAULT) [address] [address] GFR/1.73 sq M.predicted among non-blacks MDRD (S/P/Bld) [Vol rate/Area] 77 mL/min/{1.73_m2} Normal >=60 [facility] Comment on above: Result Comment: Repo rted eGFR is based on the CKD-EPI 2020 equation using creatinine, age, and sex. Performed By: #### H EMO #### [facility] (DEFAULT) [address] [address] Glucose [Mass/Vol] 107 mg/dL High 70-99 [facility] Comment on above: Performed By: #### H EMO #### [facility] (DEFAULT) [address] [address] Osmolality [Osmolality] 296 mosm/kg Normal 278-305 [facility] Comment on above: Performed By: #### H EMOGC #### [facility] (DEFAULT) [address] [address] Potassium [Moles/Vol] 3.9 mmol/L Normal 3.5-5.0 [facility] Comment on above: Performed By: #### H EMOGC #### [facility] (DEFAULT) [address] [place] [address] Sodium [Moles/Vol] 142 mmol/L Normal 135-145 [facility] Comment on above: Performed By: #### [facility] #### [facility] (DEFAULT) [address] [place] [address] Urea nitrogen [Mass/Vol] 11 mg/dL Normal 7-25 [facility] Comment on above: Performed By: #### H [facility] #### [facility] (DEFAULT) [address] [place] [address] Urea nitrogen/Creatinine [Mass ratio] 10 mg/mg Normal [facility] Comment on above: Performed By: #### H [facility] #### [facility] (DEFAULT) [address] [place] [address] Anion gap [Moles/Vol] 12 mmol/L 7 - 17 mmol/L [facility] Chloride [Moles/Vol] 113 mmol/L High 98 - 10 8 mmol/L [facility] CO2 [Moles/Vol] 21 mmol/L 21 - 31 mmol/L [facility] Creatinine [Mass/Vol] 1.14 mg/dL 0.70 - 1.30 mg/dL [facility] eGFR, CKD-EPI, Male 77 - PINF [facility] Glucose [Mass/Vol] 107 mg/dL High 70 - 99 mg/dL [facility] Osmolality Calc [Osmolality] 296 [facility] Potassium [Moles/Vol] 3.9 mmol/L 3.5 - 5.0 mmol/L [facility] Sodium [Moles/Vol] 142 mmol/L 135 - 145 mmol/L [facility] Urea nitrogen [Mass/Vol] 11 mg/dL 7 - 25 mg/dL [facility] Urea nitrogen/Creatinine [Mass ratio] 10 mg/mg [facility] HEPATIC FUNCTION PANELon Albumin [Mass/Vol] 2.9 g/dL Low 3.5-5.0 [facility] Comment on above: Performed By: #### H [facility] #### [facility] (DEFAULT) [address] [place] [address] ALP [Catalytic activity/Vol] 133 U/L High 32-126 [facility] Comment on above: Performed By: #### H EMO #### [facility] (DEFAULT) [address] [place] [address] ALT [Catalytic activity/Vol] 23 U/L Normal 10-52 [facility] Comment on above: Performed By: #### H EMO #### [facility] (DEFAULT) [address] [place] [address] AST [Catalytic activity/Vol] 23 U/L Normal 10-39 [facility] Comment on above: Performed By: #### H EMO #### [facility] (DEFAULT) [address] [place] [address] Bilirubin [Mass/Vol] 0.8 mg/dL Normal <1.5 [facility] Comment on above: Performed By: #### H EMO #### [facility] (DEFAULT) [address] [place] [address] Bilirubin.indirect [Mass/Vol] 0.2 mg/dL Normal <0.3 [facility] Comment on above: Performed By: #### H EMO #### [facility] (DEFAULT) [address] [place] [address] Protein [Mass/Vol] 5.9 g/dL Low 6.4-8.3 [facility] Comment on above: Performed By: #### H EMO #### [facility] (DEFAULT) [address] [place] [address] Albumin [Mass/Vol] 2.9 g/dL Low 3.5 - 5.0 g/dL [facility] ALP [Catalytic activity/Vol] 133 U/L High 32 - 126 U/L [facility] ALT [Catalytic activity/Vol] 23 U/L 10 - 52 U/L [facility] AST [Catalytic activity/Vol] 23 U/L 10 - 39 U/L [facility] Bilirubin [Mass/Vol] 0.8 mg/dL NINF - 1.5 mg/dL [facility] Bilirubin.direct [Mass/Vol] 0.2 mg/dL NINF - 0.3 mg/dL [facility] Protein [Mass/Vol] 5.9 g/dL Low 6.4 - 8.3 g/dL [facility] MAGNESIUMon 09-08-2023 Magnesium [Mass/Vol] 1.8 mg/dL Normal 1.6-2.6 [facility] Comment on above: Performed By: #### H [facility] #### [facility] (DEFAULT) [address] [place] [address] Interpretation and review of laboratory results Normal [facility] Magnesium [Mass/Vol] 1.8 mg/dL 1.6 - 2 .6 mg/dL [facility] No Panel Informationon 09-08 Interpretation and review of laboratory results Abnormal [facility] PHOSPHATE, INORGANICon 09-08 Interpretation and review of laboratory results Normal [facility] Phosphate [Mass/Vol] 4.1 mg/dL 2.2 - 4 .6 mg/dL [facility] Phosphorous 4.1 mg/dL Normal 2.2-4.6 [facility] Comment on above: Performed By: #### H [facility] #### [facility] (DEFAULT) [address] [place] [address] TACROLIMUS LEVEL, TROUGH (HI E DRUG LEVEL)on 09-08-2023 Interpretation and review of laboratory results Normal [facility] Tacrolimus (Bld) [Mass/Vol] 8.5 ng/mL [facility] Tacrolimus, Trough 8.5 ng/mL Normal Bone Susana ow Transplant: 4.0-12.0, Therapeutic: 5.0-15.0 [facility] Comment on above: Order Comment: Pleas e draw at specified interval PRIOR to dose. Do not hold dose to wait for level. Specimens batched twice per day, (M-F) and once per day weekendsMethod performed is a chemiluminescent microparticle immunoasssay on the [employer] i2000.The range is based on experience at [facility] and users should be aware that target concentrations vary widely depending on concomitant therapy, time post-transplant, and desired degree of immunosuppression. Performed By: #### N ONGNNONFNA #### [facility] (DEFAULT) [address] [address] CBC,PLATELETSon 09-07-2023 Hematocrit (Bld) [Volume fraction] 37.1 % Low 39.6-48.8 [facility] Comment on above: Performed By: #### Vale UNDERWOOD #### [facility] (DEFAULT) [address] [address] Hemoglobin (Bld) [Mass/Vol] 11.9 g/dL Low 13.4-16.8 [facility] Comment on above: Performed By: #### Vale UNDERWOOD #### [facility] (DEFAULT) [address] [address] MCV (RBC) [Entitic vol] 86.5 fL Normal 79.0-94.5 [facility] Comment on above: Performed By: #### Vale UNDERWOOD #### [facility] (DEFAULT) [address] [address] Mean Cell Hgb 27.7 pg Normal 26.1-33.3 [facility] Comment on above: Performed By: #### Vale UNDERWOOD #### [facility] (DEFAULT) [address] [address] Mean Cell Hgb Conc 32.1 g/dL Normal 31.9-36.5 [facility] Comment on above: Performed By: #### Vale UNDERWOOD #### [facility] (DEFAULT) [address] [address] Platelet mean volume (Bld) [Entitic vol] 9.6 fL Normal 8.7-12.3 [facility] Comment on above: Performed By: #### G YASMINE #### [facility] (DEFAULT) [address] [place] [address] Platelets (Bld) [#/Vol] 176 10*3/uL Normal 146-337 [facility] Comment on above: Performed By: #### Vale UNDERWOOD #### [facility] (DEFAULT) [address] [place] [address] RBC (Bld) [#/Vol] 4.29 10*6/uL Low 4.38-5.83 [facility] Comment on above: Performed By: #### Vale UNDERWOOD #### [facility] (DEFAULT) [address] [place] [address] RBC Distribution 13.5 % Normal 10.9-14.3 [facility] Comment on above: Performed By: #### Vale UNDERWOOD #### [facility] (DEFAULT) [address] [place] [address] WBC (Bld) [#/Vol] 4.10 10*3/uL Normal 3.73-10.10 [facility] Comment on above: Performed By: #### Vale UNDERWOOD #### [facility] (DEFAULT) [address] [place] [address] Erythrocyte distribution width (RBC) [Ratio] 13.5 % 10.9 - 14.3 % [facility] Hematocrit (Bld) [Volume fraction] 37.1 % Low 39.6 - 48.8 % [facility] Hemoglobin (Bld) [Mass/Vol] 11.9 g/dL Low 13.4 - 16.8 g/dL [facility] Interpretation and review of laboratory results Abnormal [facility] MCH (RBC) [Entitic mass] 27.7 pg 26.1 - 33.3 pg [facility] MCHC (RBC) [Mass/Vol] 32.1 g/dL 31.9 - 36.5 g/dL [facility] MCV (RBC) [Entitic vol] 86.5 fL 79.0 - 94.5 fL [facility] Platelet mean volume (Bld) [Entitic vol] 9.6 fL 8.7 - 12.3 fL [facility] Platelets (Bld) [#/Vol] 176 10*3/uL 146 - 337 K/uL [facility] RBC (Bld) [#/Vol] 4.29 10*6/uL [facility] WBC (Bld) [#/Vol] 4.10 10*3/uL 3.73 - 10. 10 K/uL [facility] CHEM 7 (LYTES,BUN,CREA,GLUC) on 09-07-2023 Anion gap [Moles/Vol] 13 mmol/L Normal 7-17 [facility] Comment on above: Performed By: #### Y PNRP #### [facility] (DEFAULT) [address] [place] [address] Chloride [Moles/Vol] 113 mmol/L High 98-108 [facility] Comment on above: Performed By: #### Y PNRP #### [facility] (DEFAULT) [address] [place] [address] CO2 [Moles/Vol] 19 mmol/L Low 21-31 [facility] Comment on above: Performed By: #### Y PNRP #### [facility] (DEFAULT) [address] [place] [address] Creatinine [Mass/Vol] 1.22 mg/dL Normal 0.70-1.30 [facility] Comment on above: Performed By: #### Y PNRP #### [facility] (DEFAULT) [address] [place] [address] GFR/1.73 sq M.predicted among non-blacks MDRD (S/P/Bld) [Vol rate/Area] 71 mL/min/{1.73_m2} Normal >=60 [facility] Comment on above: Result Comment: Repo rted eGFR is based on the CKD-EPI 2020 equation using creatinine, age, and sex. Performed By: #### Y PNRP #### [facility] (DEFAULT) [address] [place] [address] Glucose [Mass/Vol] 107 mg/dL High 70-99 [facility] Comment on above: Performed By: #### Y PNRP #### [facility] (DEFAULT) [address] [place] [address] Osmolality [Osmolality] 295 mosm/kg Normal 278-305 [facility] Comment on above: Performed By: #### Y PNRP #### [facility] (DEFAULT) [address] [place] [address] Potassium [Moles/Vol] 3.9 mmol/L Normal 3.5-5.0 [facility] Comment on above: Performed By: #### Y PNRP #### [facility] (DEFAULT) [address] [place] [address] Sodium [Moles/Vol] 141 mmol/L Normal 135-145 [facility] Comment on above: Performed By: #### Y PNRP #### [facility] (DEFAULT) [address] [place] [address] Urea nitrogen [Mass/Vol] 13 mg/dL Normal 7-25 [facility] Comment on above: Performed By: #### Y PNRP #### [facility] (DEFAULT) [address] [place] [address] Urea nitrogen/Creatinine [Mass ratio] 11 mg/mg Normal [facility] Comment on above: Performed By: #### Y PNRP #### [facility] (DEFAULT) [address] [place] [address] Anion gap [Moles/Vol] 13 mmol/L 7 - 17 mmol/L [facility] Chloride [Moles/Vol] 113 mmol/L High 98 - 10 8 mmol/L [facility] CO2 [Moles/Vol] 19 mmol/L Low 21 - 31 mmol/L [facility] Creatinine [Mass/Vol] 1.22 mg/dL 0.70 - 1.30 mg/dL [facility] eGFR, CKD-EPI, Male 71 - PINF [facility] Glucose [Mass/Vol] 107 mg/dL High 70 - 99 mg/dL [facility] Osmolality Calc [Osmolality] 295 [facility] Potassium [Moles/Vol] 3.9 mmol/L 3.5 - 5.0 mmol/L [facility] Sodium [Moles/Vol] 141 mmol/L 135 - 145 mmol/L [facility] Urea nitrogen [Mass/Vol] 13 mg/dL 7 - 25 mg/dL [facility] Urea nitrogen/Creatinine [Mass ratio] 11 mg/mg [facility] HEPATIC FUNCTION PANELon Albumin [Mass/Vol] 2.9 g/dL Low 3.5-5.0 [facility] Comment on above: Performed By: #### Y PNRP #### [facility] (DEFAULT) [address] [address] ALP [Catalytic activity/Vol] 111 U/L Normal 32-126 [facility] Comment on above: Performed By: #### Y PNRP #### [facility] (DEFAULT) [address] [address] ALT [Catalytic activity/Vol] 18 U/L Normal 10-52 [facility] Comment on above: Performed By: #### Y PNRP #### [facility] (DEFAULT) [address] [place] [address] AST [Catalytic activity/Vol] 23 U/L Normal 10-39 [facility] Comment on above: Performed By: #### Y PNRP #### [facility] (DEFAULT) [address] [place] [address] Bilirubin [Mass/Vol] 0.8 mg/dL Normal <1.5 [facility] Comment on above: Performed By: #### Y PNRP #### [facility] (DEFAULT) [address] [place] [address] Bilirubin.indirect [Mass/Vol] 0.3 mg/dL High <0.3 [facility] Comment on above: Performed By: #### Y PNRP #### [facility] (DEFAULT) [address] [place] [address] Protein [Mass/Vol] 6.0 g/dL Low 6.4-8.3 [facility] Comment on above: Performed By: #### Y PNRP #### [facility] (DEFAULT) [address] [place] [address] Albumin [Mass/Vol] 2.9 g/dL Low 3.5 - 5.0 g/dL [facility] ALP [Catalytic activity/Vol] 111 U/L 32 - 126 U/L [facility] ALT [Catalytic activity/Vol] 18 U/L 10 - 52 U/L [facility] AST [Catalytic activity/Vol] 23 U/L 10 - 39 U/L [facility] Bilirubin [Mass/Vol] 0.8 mg/dL NINF - 1.5 mg/dL [facility] Bilirubin.direct [Mass/Vol] 0.3 mg/dL High NINF - 0.3 mg/dL [facility] Protein [Mass/Vol] 6.0 g/dL Low 6.4 - 8.3 g/dL [facility] MAGNESIUMon 09-07-2023 Magnesium [Mass/Vol] 1.7 mg/dL Normal 1.6-2.6 [facility] Comment on above: Performed By: #### Y PNRP #### [facility] (DEFAULT) [address] [place] [address] Interpretation and review of laboratory results Normal [facility] Magnesium [Mass/Vol] 1.7 mg/dL 1.6 - 2 .6 mg/dL [facility] No Panel Informationon 09-07 Interpretation and review of laboratory results Abnormal [facility] PHOSPHATE, INORGANICon 09-07 Phosphorous 4.4 mg/dL Normal 2.2-4.6 [facility] Comment on above: Performed By: #### Y PNRP #### [facility] (DEFAULT) [address] [address] Interpretation and review of laboratory results Normal [facility] Phosphate [Mass/Vol] 4.4 mg/dL 2.2 - 4 .6 mg/dL [facility] TACROLIMUS LEVEL, TROUGH (HI E DRUG LEVEL)Ordered By: Elizabeth Maldonado on 09-07-2023 Interpretation and review of laboratory results Normal [facility] Tacrolimus (Bld) [Mass/Vol] 7.8 ng/mL [facility] TACROLIMUS LEVEL, TROUGH (HI E DRUG LEVEL)on 09-07-2023 Tacrolimus, Trough 7.8 ng/mL Normal Bone Susana ow Transplant: 4.0-12.0, Therapeutic: 5.0-15.0 [facility] Comment on above: Order Comment: Pleas e draw at specified interval PRIOR to dose. Do not hold dose to wait for level. Specimens batched twice per day, (M-F) and once per day weekends Method performed is a chemiluminescent microparticle immunoasssay on the [employer] i2000. The range is based on experience at [facility] and users should be aware that target concentrations vary widely depending on concomitant therapy, time post-transplant, and desired degree of immunosuppression. Performed By: #### T ACRO #### [facility] (DEFAULT) [address] [place] [address] CBC,PLATELETSon 09-06-2023 Hematocrit (Bld) [Volume fraction] 38.4 % Low 39.6-48.8 [facility] Comment on above: Performed By: #### Y PNRP #### [facility] (DEFAULT) [address] [address] Hemoglobin (Bld) [Mass/Vol] 11.9 g/dL Low 13.4-16.8 [facility] Comment on above: Performed By: #### Y PNRP #### [facility] (DEFAULT) [address] [address] MCV (RBC) [Entitic vol] 85.9 fL Normal 79.0-94.5 [facility] Comment on above: Performed By: #### Y PNRP #### [facility] (DEFAULT) [address] [place] [address] Mean Cell Hgb 26.6 pg Normal 26.1-33.3 [facility] [facility] Comment on above: Performed By: #### Y PNRP #### [facility] (DEFAULT) [address] [place] [address] 15810 Mean Cell Hgb Conc 31.0 g/dL Low 31.9-36.5 [facility] Comment on above: Performed By: #### Y PNRP #### [facility] (DEFAULT) [address] [place] [address] 91181 Platelet mean volume (Bld) [Entitic vol] 9.7 fL Normal 8.7-12.3 [facility] Comment on above: Performed By: #### Y PNRP #### [facility] (DEFAULT) [address] [place] [address] 75087 Platelets (Bld) [#/Vol] 181 10*3/uL Normal 146-337 [facility] Comment on above: Performed By: #### Y PNRP #### [facility] (DEFAULT) [address] [place] [address] 00589 RBC (Bld) [#/Vol] 4.47 10*6/uL Normal 4.38-5.83 [facility] Comment on above: Performed By: #### Y PNRP #### [facility] (DEFAULT) [address] [place] [address] 65422 RBC Distribution 13.4 % Normal 10.9-14.3 [facility] Comment on above: Performed By: #### Y PNRP #### [facility] (DEFAULT) [address] [place] [address] 18619 WBC (Bld) [#/Vol] 4.41 10*3/uL Normal 3.73-10.10 [facility] Comment on above: Performed By: #### Y PNRP #### [facility] (DEFAULT) [address] [place] [address] Erythrocyte distribution width (RBC) [Ratio] 13.4 % 10.9 - 14.3 % [facility] Hematocrit (Bld) [Volume fraction] 38.4 % Low 39.6 - 48.8 % [facility] Hemoglobin (Bld) [Mass/Vol] 11.9 g/dL Low 13.4 - 16.8 g/dL [facility] Interpretation and review of laboratory results Abnormal [facility] MCH (RBC) [Entitic mass] 26.6 pg 26.1 - 33.3 pg [facility] MCHC (RBC) [Mass/Vol] 31.0 g/dL Low 31.9 - 36.5 g/dL [facility] MCV (RBC) [Entitic vol] 85.9 fL 79.0 - 94.5 fL [facility] Platelet mean volume (Bld) [Entitic vol] 9.7 fL 8.7 - 12.3 fL [facility] Platelets (Bld) [#/Vol] 181 10*3/uL 146 - 337 K/uL [facility] RBC (Bld) [#/Vol] 4.47 10*6/uL [facility] WBC (Bld) [#/Vol] 4.41 10*3/uL 3.73 - 10. 10 K/uL [facility] CHEM 7 (LYTES,BUN,CREA,GLUC) on 09-06-2023 Anion gap [Moles/Vol] 14 mmol/L 7 - 17 mmol/L [facility] Chloride [Moles/Vol] 109 mmol/L High 98 - 10 8 mmol/L [facility] CO2 [Moles/Vol] 19 mmol/L Low 21 - 31 mmol/L [facility] Creatinine [Mass/Vol] 1.26 mg/dL 0.70 - 1.30 mg/dL [facility] eGFR, CKD-EPI, Male 69 - PINF [facility] Glucose [Mass/Vol] 114 mg/dL High 70 - 99 mg/dL [facility] Osmolality Calc [Osmolality] 291 [facility] Potassium [Moles/Vol] 4.1 mmol/L 3.5 - 5.0 mmol/L [facility] Sodium [Moles/Vol] 138 mmol/L 135 - 145 mmol/L [facility] Urea nitrogen [Mass/Vol] 16 mg/dL 7 - 25 mg/dL [facility] Urea nitrogen/Creatinine [Mass ratio] 13 mg/mg [facility] Anion gap [Moles/Vol] 14 mmol/L Normal 7-17 [facility] Comment on above: Performed By: #### L EGN #### [facility] (DEFAULT) [address] [place] [address] Chloride [Moles/Vol] 109 mmol/L High 98-108 [facility] Comment on above: Performed By: #### L EGN #### [facility] (DEFAULT) [address] [place] [address] CO2 [Moles/Vol] 19 mmol/L Low 21-31 [facility] Comment on above: Performed By: #### L EGN #### [facility] (DEFAULT) [address] [place] [address] Creatinine [Mass/Vol] 1.26 mg/dL Normal 0.70-1.30 [facility] Comment on above: Performed By: #### L EGN #### [facility] (DEFAULT) [address] [place] [address] 25201 GFR/1.73 sq M.predicted among non-blacks MDRD (S/P/Bld) [Vol rate/Area] 69 mL/min/{1.73_m2} Normal >=60 [facility] Comment on above: Result Comment: Repo rted eGFR is based on the CKD-EPI 2020 equation using creatinine, age, and sex. Performed By: #### L EGN #### [facility] (DEFAULT) [address] [place] [address] 05923 Glucose [Mass/Vol] 114 mg/dL High 70-99 [facility] Comment on above: Performed By: #### L EGN #### [facility] (DEFAULT) [address] [place] [address] Osmolality [Osmolality] 291 mosm/kg Normal 278-305 [facility] Comment on above: Performed By: #### L EGN #### [facility] (DEFAULT) [address] [place] [address] 94653 Potassium [Moles/Vol] 4.1 mmol/L Normal 3.5-5.0 [facility] Comment on above: Performed By: #### L EGN #### [facility] (DEFAULT) [address] [place] [address] 86905 Sodium [Moles/Vol] 138 mmol/L Normal 135-145 [facility] Comment on above: Performed By: #### L EGN #### [facility] (DEFAULT) [address] [place] [address] 61324 Urea nitrogen [Mass/Vol] 16 mg/dL Normal 7-25 [facility] Comment on above: Performed By: #### L EGN #### [facility] (DEFAULT) [address] [place] [address] 66140 Urea nitrogen/Creatinine [Mass ratio] 13 mg/mg Normal [facility] Comment on above: Performed By: #### L EGN #### [facility] (DEFAULT) [address] [place] [address] 70837 HEPATIC FUNCTION PANELon Albumin [Mass/Vol] 3.0 g/dL Low 3.5 - 5.0 g/dL [facility] ALP [Catalytic activity/Vol] 115 U/L 32 - 126 U/L [facility] ALT [Catalytic activity/Vol] 25 U/L 10 - 52 U/L [facility] AST [Catalytic activity/Vol] 31 U/L 10 - 39 U/L [facility] Bilirubin [Mass/Vol] 1.0 mg/dL NINF - 1.5 mg/dL [facility] Bilirubin.direct [Mass/Vol] 0.3 mg/dL High NINF - 0.3 mg/dL [facility] Protein [Mass/Vol] 6.3 g/dL Low 6.4 - 8.3 g/dL [facility] Albumin [Mass/Vol] 3.0 g/dL Low 3.5-5.0 [facility] Comment on above: Performed By: #### L EGN #### [facility] (DEFAULT) [address] [place] [address] 40551 ALP [Catalytic activity/Vol] 115 U/L Normal 32-126 [facility] Comment on above: Performed By: #### L EGN #### [facility] (DEFAULT) [address] [place] [address] 93930 ALT [Catalytic activity/Vol] 25 U/L Normal 10-52 [facility] Comment on above: Performed By: #### L EGN #### [facility] (DEFAULT) [address] [place] [address] 72363 AST [Catalytic activity/Vol] 31 U/L Normal 10-39 [facility] Comment on above: Performed By: #### L EGN #### [facility] (DEFAULT) [address] [place] [address] 07238 Bilirubin [Mass/Vol] 1.0 mg/dL Normal <1.5 [facility] Comment on above: Performed By: #### L EGN #### [facility] (DEFAULT) [address] [place] [address] 99979 Bilirubin.indirect [Mass/Vol] 0.3 mg/dL High <0.3 [facility] Comment on above: Performed By: #### L EGN #### [facility] (DEFAULT) [address] [place] [address] 01278 Protein [Mass/Vol] 6.3 g/dL Low 6.4-8.3 [facility] Comment on above: Performed By: #### L EGN #### [facility] (DEFAULT) [address] [place] [address] 74749 MAGNESIUMon 09-06-2023 Interpretation and review of laboratory results Normal [facility] Magnesium [Mass/Vol] 2.0 mg/dL 1.6 - 2 .6 mg/dL [facility] Magnesium [Mass/Vol] 2.0 mg/dL Normal 1.6-2.6 [facility] Comment on above: Performed By: #### L EGN #### [facility] (DEFAULT) [address] [place] [address] 97085 No Panel Informationon 09-06 Interpretation and review of laboratory results Abnormal [facility] TACROLIMUS LEVEL, TROUGH (HI E DRUG LEVEL)on 09-06-2023 Interpretation and review of laboratory results Normal [facility] Tacrolimus (Bld) [Mass/Vol] 6.7 ng/mL [facility] Tacrolimus, Trough 6.7 ng/mL Normal Bone Susana ow Transplant: 4.0-12.0, Therapeutic: 5.0-15.0 [facility] Comment on above: Order Comment: Pleas e draw at specified interval PRIOR to dose. Do not hold dose to wait for level. Specimens batched twice per day, (M-) and once per day weekends Method performed is a chemiluminescent microparticle immunoasssay on the [employer] i2000. The range is based on experience at [facility] and users should be aware that target concentrations vary widely depending on concomitant therapy, time post-transplant, and desired degree of immunosuppression. Performed By: #### T ACRO #### [facility] (DEFAULT) [address] [place] [address] 55897 CBC,PLATELETSon 09-05-2023 Hematocrit (Bld) [Volume fraction] 35.6 % Low 39.6-48.8 [facility] Comment on above: Performed By: #### T ACRO #### [facility] (DEFAULT) [address] [place] [address] 31558 Hemoglobin (Bld) [Mass/Vol] 11.4 g/dL Low 13.4-16.8 [facility] Comment on above: Performed By: #### T ACRO #### [facility] (DEFAULT) [address] [place] [address] 50656 MCV (RBC) [Entitic vol] 86.0 fL Normal 79.0-94.5 [facility] Comment on above: Performed By: #### T ACRO #### [facility] (DEFAULT) [address] [place] [address] 18511 Mean Cell Hgb 27.5 pg Normal 26.1-33.3 [facility] Comment on above: Performed By: #### T ACRO #### [facility] (DEFAULT) [address] [place] [address] 16340 Mean Cell Hgb Conc 32.0 g/dL Normal 31.9-36.5 [facility] Comment on above: Performed By: #### T ACRO #### [facility] (DEFAULT) [address] [place] [address] 77217 Platelet mean volume (Bld) [Entitic vol] 10.0 fL Normal 8.7-12.3 [facility] Comment on above: Performed By: #### T ACRO #### [facility] (DEFAULT) [address] [place] [address] 25784 Platelets (Bld) [#/Vol] 170 10*3/uL Normal 146-337 [facility] Comment on above: Performed By: #### T ACRO #### [facility] (DEFAULT) [address] [address] RBC (Bld) [#/Vol] 4.14 10*6/uL Low 4.38-5.83 [facility] Comment on above: Performed By: #### T ACRO #### [facility] (DEFAULT) [address] [place] [address] 80914 RBC Distribution 13.5 % Normal 10.9-14.3 [facility] Comment on above: Performed By: #### T ACRO #### [facility] (DEFAULT) [address] [place] [address] WBC (Bld) [#/Vol] 4.24 10*3/uL Normal 3.73-10.10 [facility] Comment on above: Performed By: #### T ACRO #### [facility] (DEFAULT) [address] [place] [address] Erythrocyte distribution width (RBC) [Ratio] 13.5 % 10.9 - 14.3 % [facility] Hematocrit (Bld) [Volume fraction] 35.6 % Low 39.6 - 48.8 % [facility] Hemoglobin (Bld) [Mass/Vol] 11.4 g/dL Low 13.4 - 16.8 g/dL [facility] Interpretation and review of laboratory results Abnormal [facility] MCH (RBC) [Entitic mass] 27.5 pg 26.1 - 33.3 pg [facility] MCHC (RBC) [Mass/Vol] 32.0 g/dL 31.9 - 36.5 g/dL [facility] MCV (RBC) [Entitic vol] 86.0 fL 79.0 - 94.5 fL [facility] Platelet mean volume (Bld) [Entitic vol] 10.0 fL 8.7 - 12.3 fL [facility] Platelets (Bld) [#/Vol] 170 10*3/uL 146 - 337 K/uL [facility] RBC (Bld) [#/Vol] 4.14 10*6/uL [facility] WBC (Bld) [#/Vol] 4.24 10*3/uL 3.73 - 10. 10 K/uL [facility] CHEM 7 (LYTES,BUN,CREA,GLUC) on 09-05-2023 Anion gap [Moles/Vol] 12 mmol/L Normal 7-17 [facility] Comment on above: Performed By: #### L EGN #### [facility] (DEFAULT) [address] [place] [address] 04191 Chloride [Moles/Vol] 107 mmol/L Normal 98-108 [facility] Comment on above: Performed By: #### L EGN #### [facility] (DEFAULT) [address] [place] [address] 03651 CO2 [Moles/Vol] 20 mmol/L Low 21-31 [facility] Comment on above: Performed By: #### L EGN #### [facility] (DEFAULT) [address] [place] [address] 95568 Creatinine [Mass/Vol] 1.43 mg/dL High 0.70-1.30 [facility] Comment on above: Performed By: #### L EGN #### [facility] (DEFAULT) [address] [place] [address] 78912 GFR/1.73 sq M.predicted among non-blacks MDRD (S/P/Bld) [Vol rate/Area] 59 mL/min/{1.73_m2} Low >=60 [facility] Comment on above: Result Comment: Repo rted eGFR is based on the CKD-EPI 2020 equation using creatinine, age, and sex. Performed By: #### L EGN #### [facility] (DEFAULT) [address] [place] [address] 76468 Glucose [Mass/Vol] 111 mg/dL High 70-99 [facility] Comment on above: Performed By: #### L EGN #### [facility] (DEFAULT) [address] [place] [address] 10593 Osmolality [Osmolality] 286 mosm/kg Normal 278-305 [facility] Comment on above: Performed By: #### L EGN #### [facility] (DEFAULT) [address] [place] [address] 21147 Potassium [Moles/Vol] 4.2 mmol/L Normal 3.5-5.0 [facility] Comment on above: Performed By: #### L EGN #### [facility] (DEFAULT) [address] [place] [address] Sodium [Moles/Vol] 135 mmol/L Normal 135-145 [facility] Comment on above: Performed By: #### L EGN #### [facility] (DEFAULT) [address] [place] [address] Urea nitrogen [Mass/Vol] 18 mg/dL Normal 7-25 [facility] Comment on above: Performed By: #### L EGN #### [facility] (DEFAULT) [address] [place] [address] Urea nitrogen/Creatinine [Mass ratio] 13 mg/mg Normal [facility] Comment on above: Performed By: #### L EGN #### [facility] (DEFAULT) [address] [place] [address] 81771 Anion gap [Moles/Vol] 12 mmol/L 7 - 17 mmol/L [facility] Chloride [Moles/Vol] 107 mmol/L 98 - 10 8 mmol/L [facility] CO2 [Moles/Vol] 20 mmol/L Low 21 - 31 mmol/L [facility] Creatinine [Mass/Vol] 1.43 mg/dL High 0.70 - 1.30 mg/dL [facility] eGFR, CKD-EPI, Male 60 Low - PINF [facility] Glucose [Mass/Vol] 111 mg/dL High 70 - 99 mg/dL [facility] Osmolality Calc [Osmolality] 286 [facility] Potassium [Moles/Vol] 4.2 mmol/L 3.5 - 5.0 mmol/L [facility] Sodium [Moles/Vol] 135 mmol/L 135 - 145 mmol/L [facility] Urea nitrogen [Mass/Vol] 18 mg/dL 7 - 25 [facility] Urea [facility]/Creatinine [Mass ratio] 13 mg[facility] CONTINUOUS CARDIAC MONITORIN G STRIPon 10-07-2023 [facility] HEPATIC FUNCTION PANELon Albumin [Mass/Vol] 2.8 g/dL Low 3.5-5.0 [facility] Comment on above: Performed By: #### L EGN #### [facility] (DEFAULT) [address] [place] [address] ALP [Catalytic activity/Vol] 103 U/L Normal 32-126 [facility] Comment on above: Performed By: #### L EGN #### [facility] (DEFAULT) [address] [place] [address] ALT [Catalytic activity/Vol] 26 U/L Normal 10-52 [facility] Comment on above: Performed By: #### L EGN #### [facility] (DEFAULT) [address] [place] [address] AST [Catalytic activity/Vol] 38 U/L Normal 10-39 [facility] Comment on above: Performed By: #### L EGN #### [facility] (DEFAULT) [address] [place] [address] Bilirubin [Mass/Vol] 0.9 mg/dL Normal <1.5 [facility] Comment on above: Performed By: #### L EGN #### [facility] (DEFAULT) [address] [place] [address] Bilirubin.indirect [Mass/Vol] 0.1 mg/dL Normal <0.3 [facility] Comment on above: Performed By: #### L EGN #### [facility] (DEFAULT) [address] [place] [address] Protein [Mass/Vol] 6.1 g/dL Low 6.4-8.3 [facility] Comment on above: Performed By: #### L EGN #### [facility] (DEFAULT) [address] [place] [address] Albumin [Mass/Vol] 2.8 g/dL Low 3.5 - 5.0 g/dL [facility] ALP [Catalytic activity/Vol] 103 U/L 32 - 126 U/L [facility] ALT [Catalytic activity/Vol] 26 U/L 10 - 52 U/L [facility] AST [Catalytic activity/Vol] 38 U/L 10 - 39 U/L [facility] Bilirubin [Mass/Vol] 0.9 mg/dL NINF - 1.5 mg/dL [facility] Bilirubin.direct [Mass/Vol] 0.1 mg/dL NINF - 0.3 mg/dL [facility] Protein [Mass/Vol] 6.1 g/dL Low 6.4 - 8.3 g/dL [facility] HISTOPLASMA ANTIGEN, FLUIDon 09-05-2023 FH SOURCE BAL RML [facility] Histo FLD interpretation Negative [facility] Histoplasma Antigen, FLUID Not detected ng/mL [facility] HISTOPLASMA CAPSULATUM/BLAST OMYCES SPECIES,PCR FLUIDon 09-05-2023 HISTO/BLASTO RESULT Negative Not Applicable [facility] Specimen source Nom (Unsp spec) BAL RML [facility] IMMUNOPHENOTYPING, TISSUE/FL UIDon 09-05-2023 BKR DX CODE Use Ordering [facility] Flow Interpretation See Comment [facility] Flow Interpreted by: Yossi Perla MD, PhD [facility] MAGNESIUMon 09-05-2023 Magnesium [Mass/Vol] 1.7 mg/dL Normal 1.6-2.6 [facility] Comment on above: Performed By: #### L EGN #### [facility] (DEFAULT) [address] [place] [address] Interpretation and review of laboratory results Normal [facility] Magnesium [Mass/Vol] 1.7 mg/dL 1.6 - 2 .6 mg/dL [facility] No Panel Informationon 09-05 Interpretation and review of laboratory results Abnormal [facility] TACROLIMUS LEVEL, TROUGH (HI E DRUG LEVEL)Ordered By: Raymundo Mehta on 09-05-2023 Interpretation and review of laboratory results Normal [facility] Tacrolimus (Bld) [Mass/Vol] 5.3 ng/mL [facility] TACROLIMUS LEVEL, TROUGH (HI E DRUG LEVEL)on 09-05-2023 Tacrolimus, Trough 5.3 ng/mL Normal Bone Susana ow Transplant: 4.0-12.0, Therapeutic: 5.0-15.0 [facility] Comment on above: Order Comment: Pleas e draw at specified interval PRIOR to dose. Do not hold dose to wait for level. Specimens batched twice per day, (M-F) and once per day weekendsMethod performed is a chemiluminescent microparticle immunoasssay on the [employer] i2000.The range is based on experience at [facility] and users should be aware that target concentrations vary widely depending on concomitant therapy, time post-transplant, and desired degree of immunosuppression. Performed By: #### Y PNRP #### [facility] (DEFAULT) [address] [place] [address] 84133 ARTERIAL BLOOD GAS (FULL PUENTE EL)on 09-04-2023 Base Excess -1.2 mmol/L Normal -3.0-3.0 [facility] Comment on above: Performed By: #### G YASMINE #### [facility] (DEFAULT) [address] [place] [address] 50835 Carboxyhemoglobin 0.7 % Normal <=1.5 [facility] Comment on above: Performed By: #### G YASMINE #### [facility] (DEFAULT) [address] [address] Glucose [Mass/Vol] 159 mg/dL High 70-99 [facility] Comment on above: Performed By: #### G YASMINE #### [facility] (DEFAULT) [address] [place] [address] 21597 HCO3 (Bld) [Moles/Vol] 22 mmol/L Normal 22-28 [facility] Comment on above: Performed By: #### Vale UNDERWOOD #### [facility] (DEFAULT) [address] [place] [address] 53382 Hematocrit (Bld) [Volume fraction] 38.0 % Low 40.2-50.4 [facility] Comment on above: Performed By: #### Vale UNDERWOOD #### [facility] (DEFAULT) [address] [place] [address] 35123 Hemoglobin (Bld) [Mass/Vol] 12.6 g/dL Low 13.4-16.8 [facility] Comment on above: Performed By: #### Vale UNDERWOOD #### [facility] (DEFAULT) [address] [place] [address] 94720 Ionized Calcium, Whole Blood 4.79 mg/dL Normal 4.60-5.30 [facility] Comment on above: Performed By: ###Walter UNDERWOOD #### [facility] (DEFAULT) [address] [place] [address] 61655 Lactate, Whole Blood 2.0 mmol/L High 0.5-1.6 [facility] Comment on above: Performed By: ###Walter UNDERWOOD #### [facility] (DEFAULT) [address] [place] [address] 13388 Methemoglobin 0.0 % Normal <=1.5 [facility] Comment on above: Performed By: ###Walter UNDERWOOD #### [facility] (DEFAULT) [address] [place] [address] 51147 Oxyhemoglobin 91 % Low 94-98 [facility] Comment on above: Performed By: #### Vale UNDERWOOD #### [facility] (DEFAULT) [address] [place] [address] 27257 pCO2 30 mm Hg Low 32-48 [facility] Comment on above: Performed By: #### Vale UNDERWOOD #### [facility] (DEFAULT) [address] [place] [address] 85390 pH (Bld) 7.48 [pH] High 7.35-7.45 [facility] Comment on above: Performed By: #### Vale UNDERWOOD #### [facility] (DEFAULT) [address] [place] [address] 65775 pO2 62 mm Hg Low 83-108 [facility] Comment on above: Performed By: #### Vale UNDERWOOD #### [facility] (DEFAULT) [address] [place] [address] 35735 Potassium [Moles/Vol] 4.2 mmol/L Normal 3.5-5.0 [facility] Comment on above: Performed By: #### Vale UNDERWOOD #### [facility] (DEFAULT) [address] [place] [address] 01926 sO2 92 % Low 94-98 [facility] Comment on above: Performed By: #### Vlae UNDERWOOD #### [facility] (DEFAULT) [address] [place] [address] 16424 Sodium [Moles/Vol] 130 mmol/L Low 135-145 [facility] Comment on above: Performed By: #### Vale UNDERWOOD #### [facility] (DEFAULT) [address] [place] [address] 85566 Specimen type Nom (Spec) Arterial Normal [facility] Comment on above: Performed By: ###Walter UNDERWOOD #### [facility] (DEFAULT) [address] [place] [address] 35354 Base excess Calc (Bld) [Moles/Vol] -1.2000 mmol/L -3.0 - 3.0 mmol/L [facility] Calcium.ionized (Bld) [Mass/Vol] 4.79 mg/dL 4.60 - 5.30 mg/dL [facility] Carboxyhemoglobin (Bld) [Mass fraction] 0.7 % NINF - 1.5 % [facility] CO2 (Bld) [Partial pressure] 30 mm[Hg] Low [facility] Glucose [Mass/Vol] 159 mg/dL High 70 - 99 mg/dL [facility] HCO3 (Bld) [Moles/Vol] 22 mmol/L 22 - 28 mmol/L [facility] Hematocrit (Bld) [Volume fraction] 38.0 % Low 40.2 - 50.4 % [facility] Hemoglobin (Bld) [Mass/Vol] 12.6 g/dL Low 13.4 - 16.8 g/dL [facility] Interpretation and review of laboratory results Abnormal [facility] Lactate [Moles/Vol] 2.0 mmol/L High 0.5 - 1. 6 mmol/L [facility] Methemoglobin (Bld) [Mass fraction] 0.0 % NINF - 1.5 % [facility] Oxygen (Bld) [Partial pressure] 62 mm[Hg] Low [facility] Oxygen saturation in Blood 92 % Low 94 - 98 % [facility] Oxyhemoglobin 91 % Low 94 - 98 % [facility] pH (Bld) 7.48 [pH] High 7.35 - 7.45 [facility] Potassium [Moles/Vol] 4.2 mmol/L 3.5 - 5.0 mmol/L [facility] Sodium [Moles/Vol] 130 mmol/L Low 135 - 145 mmol/L [facility] Specimen source Nom (Unsp spec) Arterial [facility] Bacteria identified Respirat ory culture Nom (Unsp spec)on 09-04-2023 Bacteria identified Cx Nom (Unsp spec) NO GROWTH DAY 2 OF 2 [facility] Microscopic observation Other stain Nom (Unsp spec) Cytocentrifuge preparation [facility] Microscopic observation Other stain Nom (Unsp spec) Neutrophils, Rare [facility] Microscopic observation Other stain Nom (Unsp spec) Red Blood Cells Present [facility] Microscopic observation Other stain Nom (Unsp spec) No organisms seen [facility] Bacteria identified Respirat ory culture Nom (Unsp spec)Ordered By: Jose Salgado on 09-04-2023 Bacteria identified Cx Nom (Unsp spec) NO GROWTH DAY 2 OF 2 [facility] Microscopic observation Other stain Nom (Unsp spec) Cytocentrifuge preparation [facility] Microscopic observation Other stain Nom (Unsp spec) Neutrophils, Moderate [facility] Microscopic [facility] Other stain Nom (Unsp spec) Red Blood Cells Present [facility] Microscopic observation Other stain Nom (Unsp spec) No organisms seen [facility] CBC,PLATELETSon 09-04-2023 Hematocrit (Bld) [Volume fraction] 38.7 % Low 39.6-48.8 [facility] Comment on above: Performed By: #### N ONGNNONFNA #### [facility] (DEFAULT) [address] [address] Hemoglobin (Bld) [Mass/Vol] 12.3 g/dL Low 13.4-16.8 [facility] Comment on above: Performed By: #### N ONGNNONFNA #### [facility] (DEFAULT) [address] [address] MCV (RBC) [Entitic vol] 87.8 fL Normal 79.0-94.5 [facility] Comment on above: Performed By: #### N ONGNNONFNA #### [facility] (DEFAULT) [address] [address] Mean Cell Hgb 27.9 pg Normal 26.1-33.3 [facility] Comment on above: Performed By: #### N ONGNNONFNA #### [facility] (DEFAULT) [address] [place] [address] Mean Cell Hgb Conc 31.8 g/dL Low 31.9-36.5 [facility] Comment on above: Performed By: #### N ONGNNONFNA #### [facility] (DEFAULT) [address] [address] Platelet mean volume (Bld) [Entitic vol] 9.8 fL Normal 8.7-12.3 [facility] Comment on above: Performed By: #### N ONGNNONFNA #### [facility] (DEFAULT) [address] [place] [address] Platelets (Bld) [#/Vol] 173 10*3/uL Normal 146-337 [facility] Comment on above: Performed By: #### N ONGNNONFNA #### [facility] (DEFAULT) [address] [place] [address] RBC (Bld) [#/Vol] 4.41 10*6/uL Normal 4.38-5.83 [facility] Comment on above: Performed By: #### N ONGNNONFNA #### [facility] (DEFAULT) [address] [place] [address] RBC Distribution 13.2 % Normal 10.9-14.3 [facility] Comment on above: Performed By: #### N ONGNNONFNA #### [facility] (DEFAULT) [address] [place] [address] WBC (Bld) [#/Vol] 4.57 10*3/uL Normal 3.73-10.10 [facility] Comment on above: Performed By: #### N ONGNNONFNA #### [facility] (DEFAULT) [address] [place] [address] Erythrocyte distribution width (RBC) [Ratio] 13.2 % 10.9 - 14.3 % [facility] Hematocrit (Bld) [Volume fraction] 38.7 % Low 39.6 - 48.8 % [facility] Hemoglobin (Bld) [Mass/Vol] 12.3 g/dL Low 13.4 - 16.8 g/dL [facility] Interpretation and review of laboratory results Abnormal [facility] MCH (RBC) [Entitic mass] 27.9 pg 26.1 - 33.3 pg [facility] MCHC (RBC) [Mass/Vol] 31.8 g/dL Low 31.9 - 36.5 g/dL [facility] MCV (RBC) [Entitic vol] 87.8 fL 79.0 - 94.5 fL [facility] Platelet mean volume (Bld) [Entitic vol] 9.8 fL 8.7 - 12.3 fL [facility] Platelets (Bld) [#/Vol] 173 10*3/uL 146 - 337 K/uL [facility] RBC (Bld) [#/Vol] 4.41 10*6/uL [facility] WBC (Bld) [#/Vol] 4.57 10*3/uL 3.73 - 10. 10 K/uL [facility] CHEM 7 (LYTES,BUN,CREA,GLUC) on 09-04-2023 Anion gap [Moles/Vol] 16 mmol/L Normal 7-17 [facility] Comment on above: Performed By: #### N ONGNAURELIANONA #### [facility] (DEFAULT) [address] [address] Chloride [Moles/Vol] 104 mmol/L Normal 98-108 [facility] Comment on above: Performed By: #### N ONGNAURELIANONA #### [facility] (DEFAULT) [address] [address] CO2 [Moles/Vol] 18 mmol/L Low 21-31 [facility] Comment on above: Performed By: #### N ONGNGRAEMEFNA #### [facility] (DEFAULT) [address] [address] Creatinine [Mass/Vol] 1.22 mg/dL Normal 0.70-1.30 [facility] Comment on above: Performed By: #### N ONGNNONFNA #### [facility] (DEFAULT) [address] [address] GFR/1.73 sq M.predicted among non-blacks MDRD (S/P/Bld) [Vol rate/Area] 71 mL/min/{1.73_m2} Normal >=60 [facility] Comment on above: Result Comment: Repo rted eGFR is based on the CKD-EPI 2020 equation using creatinine, age, and sex. Performed By: #### N ONGNGRAEMEFNA #### [facility] (DEFAULT) [address] [place] [address] Glucose [Mass/Vol] 124 mg/dL High 70-99 [facility] Comment on above: Performed By: #### N ONGNNONFNA #### [facility] (DEFAULT) [address] [place] [address] Osmolality [Osmolality] 284 mosm/kg Normal 278-305 [facility] Comment on above: Performed By: #### N ONGNGRAEMEFNA #### [facility] (DEFAULT) [address] [place] [address] Potassium [Moles/Vol] 3.9 mmol/L Normal 3.5-5.0 [facility] Comment on above: Performed By: #### N ONGNNONFNA #### [facility] (DEFAULT) [address] [place] [address] Sodium [Moles/Vol] 134 mmol/L Low 135-145 [facility] Comment on above: Performed By: #### N ONGNNONFNA #### [facility] (DEFAULT) [address] [place] [address] Urea nitrogen [Mass/Vol] 15 mg/dL Normal 7-25 [facility] Comment on above: Performed By: #### N ONGNNONFNA #### [facility] (DEFAULT) [address] [place] [address] Urea nitrogen/Creatinine [Mass ratio] 12 mg/mg Normal [facility] Comment on above: Performed By: #### N ONGNNONFNA #### [facility] (DEFAULT) [address] [place] [address] Anion gap [Moles/Vol] 16 mmol/L 7 - 17 mmol/L [facility] Chloride [Moles/Vol] 104 mmol/L 98 - 10 8 mmol/L [facility] CO2 [Moles/Vol] 18 mmol/L Low 21 - 31 mmol/L [facility] Creatinine [Mass/Vol] 1.22 mg/dL 0.70 - 1.30 mg/dL [facility] eGFR, CKD-EPI, Male 71 - PINF [facility] Glucose [Mass/Vol] 124 mg/dL High 70 - 99 mg/dL [facility] Osmolality Calc [[facility]smolality] 284 [facility] Potassium [Moles/Vol] 3.9 mmol/L 3.5 - 5.0 mmol/L [facility] Sodium [Moles/Vol] 134 mmol/L Low 135 - 145 mmol/L [facility] Urea nitrogen [Mass/Vol] 15 mg/dL 7 - 25 mg/dL [facility] Urea nitrogen/Creatinine [Mass ratio] 12 mg/mg [facility] CMV PCR,FLUIDS,URINE,EYE ETC on 09-04-2023 Specimen source Nom (Unsp spec) BAL LLL [facility] Specimen source Nom (Unsp spec) BAL RML [facility] HEPATIC FUNCTION PANELon Albumin [Mass/Vol] 3.0 g/dL Low 3.5-5.0 [facility] Comment on above: Performed By: #### N ONGNNONFNA #### [facility] (DEFAULT) [address] [place] [address] ALP [Catalytic activity/Vol] 112 U/L Normal 32-126 [facility] Comment on above: Performed By: #### N ONGNNONFNA #### [facility] (DEFAULT) [address] [place] [address] ALT [Catalytic activity/Vol] 22 U/L Normal 10-52 [facility] Comment on above: Performed By: #### N ONGNNONFNA #### [facility] (DEFAULT) [address] [place] [address] AST [Catalytic activity/Vol] 30 U/L Normal 10-39 [facility] Comment on above: Performed By: #### N ONGNNONFNA #### [facility] (DEFAULT) [address] [place] [address] Bilirubin [Mass/Vol] 1.2 mg/dL Normal <1.5 [facility] Comment on above: Performed By: #### N ONGNNONFNA #### [facility] (DEFAULT) [address] [place] [address] Bilirubin.indirect [Mass/Vol] 0.4 mg/dL High <0.3 [facility] Comment on above: Performed By: #### N ONGNNONFNA #### [facility] (DEFAULT) [address] [place] [address] Protein [Mass/Vol] 6.4 g/dL Normal 6.4-8.3 [facility] Comment on above: Performed By: #### N ONGNNONFNA #### [facility] (DEFAULT) [address] [place] [address] Albumin [Mass/Vol] 3.0 g/dL Low 3.5 - 5.0 g/dL [facility] ALP [Catalytic activity/Vol] 112 U/L 32 - 126 U/L [facility] ALT [Catalytic activity/Vol] 22 U/L 10 - 52 U/L [facility] AST [Catalytic activity/Vol] 30 U/L 10 - 39 U/L [facility] Bilirubin [Mass/Vol] 1.2 mg/dL NINF - 1.5 mg/dL [facility] Bilirubin.direct [Mass/Vol] 0.4 mg/dL High NINF - 0.3 mg/dL [facility] Protein [Mass/Vol] 6.4 g/dL 6.4 - 8.3 g/dL [facility] LEGIONELLA PCRon 09-04-2023 Legionella sp rRNA Probe Ql (Unsp spec) Negative Not Applicable [facility] Specimen source Nom (Unsp spec) BAL [facility] Antimicrobial susceptibilityon 09-04-2023 CMV DNA ESTELITA+probe Ql (Unsp spec) Negative Negative [facility] MAGNESIUMon 09-04-2023 Magnesium [Mass/Vol] 1.4 mg/dL Low 1.6-2.6 [facility] Comment on above: Performed By: #### N ONGNNONFNA #### [facility] (DEFAULT) [address] [place] [address] Magnesium [Mass/Vol] 1.4 mg/dL Low 1.6 - 2 .6 mg/dL [facility] No Panel Informationon 09-04 Annotation comment [Interpretation] Narrative DNR [facility] PN Report Status DNR [facility] Pneumocystis jiroveci,PCR result Negative Not Applicable [facility] Interpretation and review of laboratory results Abnormal [facility] PNEUMOCYSTIS JIROVECI,PCRon 09-04-2023 Specimen source Nom (Unsp spec) BAL LLL [facility] Specimen source Nom (Unsp spec) BAL RML [facility] Portable XR Chest Viewson RADIOLOGY RADIOLOGY [facility] Radiology Study observation (narrative) [facility] Portable XR Chest ViewsOrder ed By: Joanie Nugent on 09-04-2023 [facility] Work Phone: TACROLIMUS LEVEL, TROUGH (HI E DRUG LEVEL)on 09-04-2023 Interpretation and review of laboratory results Abnormal [facility] Tacrolimus (Bld) [Mass/Vol] 3.6 ng/mL Low [facility] Tacrolimus, Trough 3.6 ng/mL Low Bone Susana ow Transplant: 4.0-12.0, Therapeutic: 5.0-15.0 [facility] Comment on above: Order Comment: Pleas e draw at specified interval PRIOR to dose. Do not hold dose to wait for level. Specimens batched twice per day, (M-F) and once per day weekends Method performed is a chemiluminescent microparticle immunoasssay on the [employer] i2000. The range is based on experience at [facility] and users should be aware that target concentrations vary widely depending on concomitant therapy, time post-transplant, and desired degree of immunosuppression. Performed By: #### T ACRO #### [facility] (DEFAULT) [address] [place], [place] [id number] XR CHEST PORTABLEon 09-04-20 XR CHEST PORTABLE [...] the left lung likely infectious/inflammatory process. Normal [facility] ASPERGILLUS ANTIGEN, BALon 1 Galactomannan Ag IA Qn (Unsp spec) <0.500 [facility] Galactomannan Ag IA Qn (Unsp spec) <0.[address] [facility] [address] BAL CONSULTOrdered By: Noa Peralta on 09-03-2023 ALVEOLAR MACROPHAGES 32 % [facility] Work Phone: Bal comments Correlation with microbiology stains and cultures is recommended. [facility] Work Phone: Bal Diff Quik Stain Quality Check Acceptable [facility] Work Phone: BKR BAL INTERPRETATION Cellular specimen comprised of alveolar macrophages and small lymphocytes. No definitive microorganisms are observed. Moderate degenerative changes. [facility] Work Phone: BKR DX CODE Use Ordering [facility] Work Phone: Eosinophils Patterson stain Ql (Unsp spec) 0 % [facility] Work Phone: Lymphocytes/100 WBC (Bld) 57 % [facility] Work Phone: Neutrophils/100 WBC Manual cnt (Bronch spec) 11 % [facility] Work Phone: Pathologist review Jame (Unsp spec) [Interp] Leonardo Peralta MD [facility] Work Phone: [facility] Work Phone: BAL CONSULTon 09-03-2023 ALVEOLAR MACROPHAGES 33 % [facility] Bal comments Correlation with microbiology stains and cultures is recommended. Correlation with viral studies is recommended. [facility] Bal Diff Quik Stain Quality Check Acceptable [facility] BKR BAL INTERPRETATION Cellular specimen comprised of alveolar macrophages and small lymphocytes. No definitive microorganisms are observed. Rare degenerating cells with changes suggestive of viral cytopathic effect are noted. Moderate degenerative changes. [facility] BKR DX CODE Use Ordering [facility] Eosinophils Patterson stain Ql (Unsp spec) 0 % [facility] Lymphocytes/100 WBC (Bld) 49 % [facility] Neutrophils/100 WBC Manual cnt (Bronch spec) 18 % [facility] Pathologist review Jame (Unsp spec) [Interp] Leonardo Peralta MD [facility] BRONCHOSCOPYon 09-03-2023 LAB, [facility] CBC,PLATELETSon 09-03-2023 Hematocrit (Bld) [Volume fraction] 39.6 % Normal 39.6-48.8 [facility] Comment on above: Performed By: #### T ACRO #### [facility] (DEFAULT) [address] [address] Hemoglobin (Bld) [Mass/Vol] 12.8 g/dL Low 13.4-16.8 [facility] Comment on above: Performed By: #### T ACRO #### [facility] (DEFAULT) [address] [place] [address] MCV (RBC) [Entitic vol] 85.9 fL Normal 79.0-94.5 [facility] Comment on above: Performed By: #### T ACRO #### [facility] (DEFAULT) [address] [place] [address] Mean Cell Hgb 27.8 pg Normal 26.1-33.3 [facility] Comment on above: Performed By: #### T ACRO #### [facility] (DEFAULT) [address] [address] Mean Cell Hgb Conc 32.3 g/dL Normal 31.9-36.5 [facility] Comment on above: Performed By: #### T ACRO #### [facility] (DEFAULT) [address] [place] [address] Platelet mean volume (Bld) [Entitic vol] 9.4 fL Normal 8.7-12.3 [facility] Comment on above: Performed By: #### T ACRO #### [facility] (DEFAULT) [address] [address] Platelets (Bld) [#/Vol] 222 10*3/uL Normal 146-337 [facility] Comment on above: Performed By: #### T ACRO #### [facility] (DEFAULT) [address] [place] [address] RBC (Bld) [#/Vol] 4.61 10*6/uL Normal 4.38-5.83 [facility] Comment on above: Performed By: #### T ACRO #### [facility] (DEFAULT) [address] [address] RBC Distribution 13.4 % Normal 10.9-14.3 [facility] Comment on above: Performed By: #### T ACRO #### [facility] (DEFAULT) [address] [place] [address] WBC (Bld) [#/Vol] 4.36 10*3/uL Normal 3.73-10.10 [facility] Comment on above: Performed By: #### T ACRO #### [facility] (DEFAULT) [address] [place] [address] Erythrocyte distribution width (RBC) [Ratio] 13.4 % 10.9 - 14.3 % [facility] Hematocrit (Bld) [Volume fraction] 39.6 % 39.6 - 48.8 % [facility] Hemoglobin (Bld) [Mass/Vol] 12.8 g/dL Low 13.4 - 16.8 g/dL [facility] Interpretation and review of laboratory results Abnormal [facility] MCH (RBC) [Entitic mass] 27.8 pg 26.1 - 33.3 pg [facility] MCHC (RBC) [Mass/Vol] 32.3 g/dL 31.9 - 36.5 g/dL [facility] MCV (RBC) [Entitic vol] 85.9 fL 79.0 - 94.5 fL [facility] Platelet mean volume (Bld) [Entitic vol] 9.4 fL 8.7 - 12.3 fL [facility] Platelets (Bld) [#/Vol] 222 10*3/uL 146 - 337 K/uL [facility] RBC (Bld) [#/Vol] 4.61 10*6/uL [facility] WBC (Bld) [#/Vol] 4.36 10*3/uL 3.73 - 10. 10 K/uL [facility] CHEM 7 (LYTES,BUN,CREA,GLUC) on 09-03-2023 Anion gap [Moles/Vol] 12 mmol/L Normal 7-17 [facility] Comment on above: Performed By: #### L EGN #### [facility] (DEFAULT) [address] [place] [address] Chloride [Moles/Vol] 104 mmol/L Normal 98-108 [facility] Comment on above: Performed By: #### L EGN #### [facility] (DEFAULT) [address] [place] [address] CO2 [Moles/Vol] 24 mmol/L Normal 21-31 [facility] Comment on above: Performed By: #### L EGN #### [facility] (DEFAULT) [address] [place] [address] Creatinine [Mass/Vol] 1.20 mg/dL Normal 0.70-1.30 [facility] Comment on above: Performed By: #### L EGN #### [facility] (DEFAULT) [address] [address] GFR/1.73 sq M.predicted among non-blacks MDRD (S/P/Bld) [Vol rate/Area] 73 mL/min/{1.73_m2} Normal >=60 [facility] Comment on above: Result Comment: Repo rted eGFR is based on the CKD-EPI 2020 equation using creatinine, age, and sex. Performed By: #### L EGN #### [facility] (DEFAULT) [address] [address] Glucose [Mass/Vol] 112 mg/dL High 70-99 [facility] Comment on above: Performed By: #### L EGN #### [facility] (DEFAULT) [address] [address] Osmolality [Osmolality] 288 mosm/kg Normal 278-305 [facility] Comment on above: Performed By: #### L EGN #### [facility] (DEFAULT) [address] [address] Potassium [Moles/Vol] 4.1 mmol/L Normal 3.5-5.0 [facility] Comment on above: Performed By: #### L EGN #### [facility] (DEFAULT) [address] [place] [address] Sodium [Moles/Vol] 136 mmol/L Normal 135-145 [facility] Comment on above: Performed By: #### L EGN #### [facility] (DEFAULT) [address] [place] [address] Urea nitrogen [Mass/Vol] 17 mg/dL Normal 7-25 [facility] Comment on above: Performed By: #### L EGN #### [facility] (DEFAULT) [address] [place] [address] Urea nitrogen/Creatinine [Mass ratio] 14 mg/mg Normal [facility] Comment on above: Performed By: #### L EGN #### [facility] (DEFAULT) [address] [place] [address] Anion gap [Moles/Vol] 12 mmol/L 7 - 17 mmol/L [facility] Chloride [Moles/Vol] 104 mmol/L 98 - 10 8 mmol/L [facility] CO2 [Moles/Vol] 24 mmol/L 21 - 31 mmol/L [facility] Creatinine [Mass/Vol] 1.20 mg/dL 0.70 - 1.30 mg/dL [facility] eGFR, CKD-EPI, Male 73 - PINF [facility] Glucose [Mass/Vol] 112 mg/dL High 70 - 99 mg/dL [facility] Osmolality Calc [Osmolality] 288 [facility] Potassium [Moles/Vol] 4.1 mmol/L 3.5 - 5.0 mmol/L [facility] Sodium [Moles/Vol] 136 mmol/L 135 - 145 mmol/L [facility] Urea nitrogen [Mass/Vol] 17 mg/dL 7 - 25 [facility] Urea nitrogen/Creatinine [Mass ratio] 14 mg/mg [facility] CYTOLOGY, NON-GYNOrdered By: Sherice Jimenez on 09-03-2023 CYTOLOGIC DIAGNOSIS i2vpbJLaOHGjbSGmLCCaG7w jxyPnHSJugMHiQ3GipjmmLN nnVD2lLZ4nyMuavMUodCJgU NXcHnWvz5qjf685rRYxc7yj JHSYfaukjRz7s9jiEKDJlM3 hx7u9cM57NDWpbO5rwDWdHS vkuwHyQFxtmgLrrkXfNum1D XT2hUseIxvejTO0sXHtkYK9 AIglv5UhnWrbvBpyNHL4DYG qFbhuDLnbyWA2gXNtgKxcaH RdHD4ej3iwmKZ5trMePPS0f JunxDW1uRuxzrimf9erpLP7 mRC6GNidpWM7HMynBkHaZ7t gAADakS3tI90hG3ydKIBfiY xkFSywQJWvtVV4CDL6UMVsv 1xsZXZlbHRleHRcJzAxXCdi Smx4j6ahGSZwwO56yFQznhV 0lEsnITpyjVT7MC33PVpmw5 UjKKXcqZtsCYEzuZ8zOuPaO GxldmVsbmZjbjIzXGxldmVs dxKqCOxjmcMcr9QtouStaUI 6WXokddDrjME9bBzfEUSvK1 V7S834FVipkaOaejUaJgRzm gc8GPAfrTxtmTtglJrgleSb NVxjaxYjrhFmYcEtsCU6NYo bXiVsDtJrkQG4TLshFcTdfF A3EFqucYQikGC6IRhtqDV3W Uc9TEi3RHvcERfrUiy0eTem oXA8ZAhreW9sVLBdL80mArL 7j5wwySE6nPD1QLuiiVU9EO ziRhGfE9nbBMLgvB3bM08yW 4hzDXUpkAjoKInwRYRjkVI1 FKS0MBBmz5qdPDKkgLKltBU oKwHaKZolOcv2n2ykJZEdjZ 49dVUarsH5xCfwBC96OErdo 9NdBTKfjGdhGXZgpC4lEdCy XGxldmVsbmZjbjIzXGxldmV ieiIyPLelueCwg6RrkcYrlD E4PWfeuyLoiRC6tLgwHNXkL 5E4Q491IEdlkbSvklCzEpAu eek6HRXhaCpkiYdirAivfrL fBFkeyfRwfwZbDeIyuGU0JO tsLiRhJfKtzRJ1JKixXwKvn VA8NTfidBRheOL3EKaalHF2 JTo8VKr3VEddGOfhYke4wFi duVT6EOownN5kQQKfO61vBq F4y1owcIL7lQK0CHwavTC9W KfjMrBkS1kkCSJbcT6oU60c O1pxSGYdvVeuGHzsVKWugLT 0FQV8CCZpt5lwGNMzjMJkrB AaKkMlEIhoKgt9w9ncNSXrc N83eTNlztG4iKrfPE46FGih i0DbHHLcbEbuPQUirU4dPdP zXGxldmVsbmZjbjIzXGxldm GsxmGgGTrfvyThp0VbqhDnw IP0XNbvctSqfGI5aExaGIBu C1B1X841WJcpywOyydPwIgM fawn5KMKoaNtxgTygxLquls OdJYdjotScalQsEpHznUR7L UzdAaPkBlQqcBF7DWkzFdRh kCE7PQwelKJmiQM9RLjiuUE 7ZHq4RTd6MOvgORrjAqp1hZ lgbSU9IRotwT2tVMDnW01iW xC6bC96JTobrQjicQ60VJOa jMExsJPzwBW8WYqjzVzteU2 0XLUsoHUhTEuce0KyJBMhCh B6FZJ2MTRfeTwhbC49HUEve CWvU156ebOfBOnnWJ48FIQy cGVydzEyMjQwXHBhcGVyaDE 0HGDbMU9zjbniXBmcIOjsIG LtirG8KHUvnKBeB4YmRKAmB O7koqutXLR3ITsmEQZfWFQ2 IqGdTLBfy6Cnsru7OvYamBx 8g6agPQCgZUZfdVlmj2ilEN H4ORObiRDkU6zzcN4lAKTiG W4apzzse6ybQWqhRRsrGEAh yCT2zlQ9LQYezWUyN1XpyI4 lCYPhXIBjysFtjWjdtO7qXl qnueHyBXEzCHNDWmIVZq3FB 6kRNXxMDJ6KYORlZTUGSXeO DHVKQWODDGnSM9ENFDzEJoJ dNFJvGJPoN5kGD4hTI0zcPz cdDqVvKGtgFQOrDfGnC3SqD QWqhapmHTAnRQJHEU7KOOGD BBSQDt4FBBB1AEWebngyiEB 8GUjzhzPvcLv7bVMduDmuxQ 5cYlxmczIyXGNmMSBObyBNY YyxS42dpjGkF0QddMCfECEz EIjyEJ28yHEwTJVdcFBoTYy 3wW3yGEicfZnosmYVnAUdfN 1lblxiMFxjZjBccGFyXGxpM FxsczBccGFyfQ== [facility] Work Phone: Case Report [facility] Work Phone: Clinical History v2gwkJRqAPHjzXYpGOKp M1x rcgEqLWPndYLxF0QcschpSX fcYD5tJR7sjZbfaQJrsRSkC FCaQyZfy2fdy948tBSoi2pp GYVNaukdlNz9jWbtL02gp7F 1VvzgC8igKJMtAWuzTVSmPU zicUDaYAv8KFHebAOaahGbQ yUkNMHdpQFqjPQ5HWFcRA1p kfgvQMdiWAlkOOJykqI9IVR azGYrV3ZxAFIpHG0tqipdCC H6ELfzIMDiPAW4TvAuUSPdo 2Kshtm9PnGciSu7k2kyKPNf OLPzvTrwv0geCEO0BURhgPN vF0abdZ6pCHInTG8pfxzrf8 apDAiuJYnmTVXzbYY9fkR8D TZnaGDuI7SxeZ4pRBYkLUFa ggLedRcmfV0bIzNjIUwbGeY gUmVuYWwgdHJhbnNwbGFudC 0qJRYhrp5= [facility] Work Phone: For Immediate Release to Patient's [facility]? Yes Yes [facility] Work Phone: Gross Description x6uyxTKvEOHkqCEyIRHk M1x nypRgCIVjhSKcO1ZuzhuoCU enVR4pDO4gjEdetLMpgDSzW NKxDuDir8iyd092pOLkf0jl GVVBekigpDs9zZajR71xx1O 5SexbI48ukQDfTEW2NKSzKU UowMZhMSZcLCM5DFLikXShL 9muLAXoCJ5ccdxxXHrgUCfn CRMpzWE6HBJetNOsB3MsRMN bYPwqLHLepor6HkKrDj8xtZ VyeTcyMFxwYXJkXHBsYWluX GZzMjAgTExMIEJBTFxwYXIg TANbsYQiZOt5VUPpdT5nmHP gytWyyWHtrE1klCuwKMsbNQ IgMSBUUCBzbGlkZSBQYXAgc 4AahA0lhKQfZRXujiBdbQKn XHBhcn0= [facility] Work Phone: [facility] Work Phone: HEPATIC FUNCTION PANELon Albumin [Mass/Vol] 3.2 g/dL Low 3.5-5.0 [facility] Comment on above: Performed By: #### L EGN #### [facility] (DEFAULT) [address] [place] [address] ALP [Catalytic activity/Vol] 118 U/L Normal 32-126 [facility] Comment on above: Performed By: #### L EGN #### [facility] (DEFAULT) [address] [place] [address] ALT [Catalytic activity/Vol] 25 U/L Normal 10-52 [facility] Comment on above: Performed By: #### L EGN #### [facility] (DEFAULT) [address] [place] [address] AST [Catalytic activity/Vol] 32 U/L Normal 10-39 [facility] Comment on above: Performed By: #### L EGN #### [facility] (DEFAULT) [address] [place] [address] Bilirubin [Mass/Vol] 1.0 mg/dL Normal <1.5 [facility] Comment on above: Performed By: #### L EGN #### [facility] (DEFAULT) [address] [place] [address] Bilirubin.indirect [Mass/Vol] 0.3 mg/dL High <0.3 [facility] Comment on above: Performed By: #### L EGN #### [facility] (DEFAULT) [address] [place] [address] Protein [Mass/Vol] 6.5 g/dL Normal 6.4-8.3 [facility] Comment on above: Performed By: #### L EGN #### [facility] (DEFAULT) [address] [place] [address] Albumin [Mass/Vol] 3.2 g/dL Low 3.5 - 5.0 g/dL [facility] ALP [Catalytic activity/Vol] 118 U/L 32 - 126 U/L [facility] ALT [Catalytic activity/Vol] 25 U/L 10 - 52 U/L [facility] AST [Catalytic activity/Vol] 32 U/L 10 - 39 U/L [facility] Bilirubin [Mass/Vol] 1.0 mg/dL NINF - 1.5 mg/dL [facility] Bilirubin.direct [Mass/Vol] 0.3 mg/dL High NINF - 0.3 mg/dL [facility] Protein [Mass/Vol] 6.5 g/dL 6.4 - 8.3 g/dL [facility] HISTOPLASMA AND BLASTOMYCES ANTIGEN, ENZYME IMMUNOASSAY, SERMon 09-03-2023 Histoplasma/Blastomyc es Ag Result Detected Critically abnormal Not Detected [facility] Histoplasma/Blastomyc es Ag Value 5.3 ng/mL [facility] Interpretation and review of laboratory results Abnormal [facility] IMMUNOPHENOTYPING, TISSUE/FL UIDon 09-03-2023 BKR DX CODE Use Ordering Normal [facility] Comment on above: Order Comment: Pleas e draw at specified interval PRIOR to dose. Do not hold dose to wait for level. Specimens batched twice per day, (M-F) and once per day weekends Method performed is a chemiluminescent microparticle immunoasssay on the [employer] i2000. The range is based on experience at [facility] and users should be aware that target concentrations vary widely depending on concomitant therapy, time post-transplant, and desired degree of immunosuppression. Performed By: #### T ACRO #### [facility] (DEFAULT) [address] [place] [address] Flow Interpretation See Comment Normal [facility] Comment on above: Order Comment: Pleas e draw at specified interval PRIOR to dose. Do not hold dose to wait for level. Specimens batched twice per day, (M-F) and once per day weekends Method performed is a chemiluminescent microparticle immunoasssay on the [employer] i2000. The range is based on experience at [facility] and users should be aware that target concentrations vary widely depending on concomitant therapy, time post-transplant, and desired degree of immunosuppression. Performed By: #### T ACRO #### [facility] (DEFAULT) [address] [place] [address] Flow Interpreted by: Yossi Perla MD, PhD Normal [facility] Comment on above: Order Comment: Pleas e draw at specified interval PRIOR to dose. Do not hold dose to wait for level. Specimens batched twice per day, (M-F) and once per day weekends Method performed is a chemiluminescent microparticle immunoasssay on the [employer] Biologist i2000. The range is based on experience at [facility] and users should be aware that target concentrations vary widely depending on concomitant therapy, time post-transplant, and desired degree of immunosuppression. Performed By: #### T ACRO #### [facility] (DEFAULT) [address] [place] [address] MAGNESIUMon 09-03-2023 Magnesium [Mass/Vol] 1.6 mg/dL Normal 1.6-2.6 [facility] Comment on above: Performed By: #### T ACRO #### [facility] (DEFAULT) [address] [place] [address] Interpretation and review of laboratory results Normal [facility] Magnesium [Mass/Vol] 1.6 mg/dL 1.6 - 2 .6 mg/dL [facility] No Panel Informationon 09-03 Interpretation and review of laboratory results Abnormal [facility] PARVOVIRUS (B19) DNA, PCR, B LOODon 09-03-2023 PARVOVIRUS B19 BY RAPID PCR Not detected Not Detected [facility] HI SPEC SOURCE Whole Blood [facility] Portable XR Chest Viewson RADIOLOGY RADIOLOGY [facility] Radiology Study observation (narrative) [facility] Portable XR Chest ViewsOrder ed By: Lester Grove on 09-03-2023 [facility] Work Phone: XR CHEST PORTABLEon 09-03-20 [...] have reviewed and approved this report. Normal [facility] ACID FAST CULTUREon 09-02-20 23 Bacteria identified Cx Nom (Unsp spec) NO GROWTH DAY 42 OF 42 Normal [facility] Comment on above: Performed By: #### H EMOGC #### [facility] (DEFAULT) [address] [address] Fluorochrome Stain No acid Fast Bacillu s Seen Normal [facility] Comment on above: Performed By: #### H EMOGC #### [facility] (DEFAULT) [address] [address] Bacteria identified Cx Nom (Unsp spec) NO GROWTH DAY 42 OF 42 Normal [facility] Comment on above: Order Comment: Pleas e draw at specified interval PRIOR to dose. Do not hold dose to wait for level. Specimens batched twice per day, (M-F) and once per day weekends Method performed is a chemiluminescent microparticle immunoasssay on the [employer] i2000. The range is based on experience at [facility] and users should be aware that target concentrations vary widely depending on concomitant therapy, time post-transplant, and desired degree of immunosuppression. Performed By: #### T ACRO #### [facility] (DEFAULT) [address] [address] Fluorochrome Stain No acid Fast Bacillu s Seen Normal [facility] Comment on above: Order Comment: Pleas e draw at specified interval PRIOR to dose. Do not hold dose to wait for level. Specimens batched twice per day, (M-F) and once per day weekends Method performed is a chemiluminescent microparticle immunoasssay on the [employer] i2000. The range is based on experience at [facility] and users should be aware that target concentrations vary widely depending on concomitant therapy, time post-transplant, and desired degree of immunosuppression. Performed By: #### T ACRO #### [facility] (DEFAULT) [address] [place] [address] ASPERGILLUS (GALACTOMANNAN), ANTIGENon 09-02-2023 Galactomannan Ag IA Qn <0.500 NINF [facility] ASPERGILLUS ANTIGEN, BALon 1 Aspergillus Galactomannan Antigen, BAL <0.500 Normal <0.5 [facility] Comment on above: Result Comment: ADDITIONAL INFORMATION This is a qualitative test and the resulted index value is not indicative of disease severity. Serial testing is recommended for patients at high risk for invasive aspergillosis. This assay was performed using the FDA-cleared [employer] Platelia Aspergillus Galactomannan EIA. Test Performed by: [place] [address] Data Compiler: Rosendo Bose M.D. Ph.D.; CLIA# [id number] Performed By: #### T ACRO #### [facility] (DEFAULT) [address] [place] [address] Aspergillus Galactomannan Antigen, BAL <0.500 Normal <0.5 [facility] Comment on above: Order Comment: Pleas e draw at specified interval PRIOR to dose. Do not hold dose to wait for level. Specimens batched twice per day, (M-F) and once per day weekends Method performed is a chemiluminescent microparticle immunoasssay on the [employer] i2000. The range is based on experience [...] This assay was performed using the FDA-cleared [employer] Platelia Aspergillus Galactomannan EIA. Test Performed by: [facility] [address] [place] [address] Data Compiler: Rosendo Bose M.D. Ph.D.; CLIA# [id number] Performed By: #### T ACRO #### [facility] (DEFAULT) [address] [place] [address] ATYPICAL BACTERIAL PNEUMONIA ,PCROrdered By: Shari Contreras on 09-02-2023 B. parapertussis DNA ESTELITA+probe Ql (Unsp spec) Not detected Not Detected [facility] B. pertussis DNA ESTELITA+probe Ql (Unsp spec) Not detected Not Detected [facility] C. pneumoniae DNA ESTELITA+probe Ql (Unsp spec) Not detected Not Detected [facility] Interpretation and review of laboratory results Normal [facility] M. pneumoniae DNA ESTELITA+probe Ql (Unsp spec) Not detected Not Detected [facility] ATYPICAL BACTERIAL PNEUMONIA ,PCRon 09-02-2023 Bordetella Parapertussis Not detected Normal Not Detected [facility] Comment on above: Order Comment: Viral [...] by The [facility]. It has not been cleared or approved by the FDA. The laboratory is required under CLIA as qualified to perform high-complexity testing. This test is used for clinical purposes. It should not be regarded as investigational or for research. Performed By: #### [facility] #### [facility] (DEFAULT) [address] [address] Bordetella Pertussis Not detected Normal Not Detected [facility] Comment on above: Order Comment: Viral [...] by The [facility]. It has not been cleared or approved by the FDA. The laboratory is required under CLIA as qualified to perform high-complexity testing. This test is used for clinical purposes. It should not be regarded as investigational or for research. Performed By: #### [facility] #### [facility] (DEFAULT) [address] [address] Chlamydia Pneumoniae Not detected Normal Not Detected [facility] Comment on above: Order Comment: Viral [...] by [facility]. It has not been cleared or approved by the FDA. The laboratory is required under CLIA as qualified to perform high-complexity testing. This test is used for clinical purposes. It should not be regarded as investigational or for research. Performed By: #### [facility] #### [facility] (DEFAULT) [address] [address] Mycoplasma Pneumoniae Not detected Normal Not Detected [facility] Comment on above: Order Comment: Viral [...] by [facility]. It has not been cleared or approved by the FDA. The laboratory is required under CLIA as qualified to perform high-complexity testing. This test is used for clinical purposes. It should not be regarded as investigational or for research. Performed By: #### H EMOGC #### [facility] (DEFAULT) [address] [address] BAL CONSULTon 09-02-2023 ALVEOLAR MACROPHAGES 33 % Normal [facility] Comment on above: Order Comment: BAL c onsultIf > 15% lymphocytes - please send for flow. Performed By: #### H EMOGC #### [facility] (DEFAULT) [address] [address] Bal comments Correlation with microbiology stains and cultures is recommended. Correlation with viral studies is recommended. Normal [facility] Comment on above: Order Comment: BAL c onsultIf > 15% lymphocytes - please send for flow. Performed By: #### H EMOGC #### [facility] (DEFAULT) [address] [address] Bal Diff Quik Stain Quality Check Acceptable Normal [facility] Comment on above: Order Comment: BAL c onsultIf > 15% lymphocytes - please send for flow. Performed By: #### H EMOGC #### [facility] (DEFAULT) [address] [address] Bal Reviewed By: Leonardo Peralta MD [facility] Comment on above: Order Comment: BAL c onsultIf > 15% lymphocytes - please send for flow. Performed By: #### H EMOGC #### [facility] (DEFAULT) [address] [address] BKR BAL INTERPRETATION Cellular specimen comprised of alveolar macrophages and small lymphocytes. No definitive microorganisms are observed. Rare degenerating cells with changes suggestive of viral cytopathic effect are noted. Moderate degenerative changes. Normal [facility] Comment on above: Order Comment: BAL c onsultIf > 15% lymphocytes - please send for flow. Performed By: #### H EMOGC #### [facility] (DEFAULT) [address] [place] [address] BKR DX CODE Use Ordering Normal [facility] Comment on above: Order Comment: BAL c onsultIf > 15% lymphocytes - please send for flow. Performed By: #### H EMOGC #### [facility] (DEFAULT) [address] [place] [address] Eosinophils/100 WBC (Bld) 0 % Normal [facility] Comment on above: Order Comment: BAL c onsultIf > 15% lymphocytes - please send for flow. Performed By: #### H EMOGC #### [facility] (DEFAULT) [address] [place] [address] Lymphocytes/100 WBC (Bld) 49 % Normal [facility] Comment on above: Order Comment: BAL c onsultIf > 15% lymphocytes - please send for flow. Performed By: #### H EMOGC #### [facility] (DEFAULT) [address] [place] [address] Neutrophils/100 WBC (Bld) 18 % Normal [facility] Comment on above: Order Comment: BAL c onsultIf > 15% lymphocytes - please send for flow. Performed By: #### H EMOGC #### [facility] (DEFAULT) [address] [place] [address] ALVEOLAR MACROPHAGES 32 % Normal [facility] Comment on above: Order Comment: BAL c onsult for cell differential and pathologist review. Please do flow cytometry if > 12% lymphocytes Performed By: #### H EMOGC #### [facility] (DEFAULT) [address] [place] [address] Bal comments Correlation with microbiology stains and cultures is recommended. Normal [facility] Comment on above: Order Comment: BAL c onsult for cell differential and pathologist review. Please do flow cytometry if > 12% lymphocytes Performed By: #### H EMOGC #### [facility] (DEFAULT) [address] [address] Bal Diff Quik Stain Quality Check Acceptable [facility] Comment on above: Order Comment: BAL c onsult for cell differential and pathologist review. Please do flow cytometry if > 12% lymphocytes Performed By: #### H EMOGC #### [facility] [address] [address] Bal Reviewed By: Leonardo Peralta MD [facility] Comment on above: Order Comment: BAL c onsult for cell differential and pathologist review. Please do flow cytometry if > 12% lymphocytes Performed By: #### H EMOGC #### [facility] (DEFAULT) [address] [address] BKR BAL INTERPRETATION Cellular specimen comprised of alveolar macrophages and small lymphocytes. No definitive microorganisms are observed. Moderate degenerative changes. [facility] Comment on above: Order Comment: BAL c onsult for cell differential and pathologist review. Please do flow cytometry if > 12% lymphocytes Performed By: #### H EMOGC #### [facility] (DEFAULT) [address] [address] BKR DX CODE Use Ordering Normal [facility] Comment on above: Order Comment: BAL c onsult for cell differential and pathologist review. Please do flow cytometry if > 12% lymphocytes Performed By: #### H EMOGC #### [facility] (DEFAULT) [address] [address] Eosinophils/100 WBC (Bld) 0 % Normal [facility] Comment on above: Order Comment: BAL c onsult for cell differential and pathologist review. Please do flow cytometry if > 12% lymphocytes Performed By: #### H EMOGC #### [facility] (DEFAULT) [address] [address] Lymphocytes/100 WBC (Bld) 57 % Normal [facility] Comment on above: Order Comment: BAL c onsult for cell differential and pathologist review. Please do flow cytometry if > 12% lymphocytes Performed By: #### H EMOGC #### [facility] (DEFAULT) [address] [place] [address] Neutrophils/100 WBC (Bld) 11 % Normal [facility] Comment on above: Order Comment: CARRIE ro for cell differential and pathologist review. Please do flow cytometry if > 12% lymphocytes Performed By: #### H EMOGC #### [facility] (DEFAULT) [address] [place] [address] BRONCHOSCOPYon 09-02-2023 Radiology Study observation (narrative) [facility] Bacteria identified Cx Nom ( Bld)on 09-02-2023 Bacteria identified Cx Nom (Unsp spec) NO GROWTH DAY 5 OF 5 [facility] CBC,PLATELETSon 09-02-2023 Hematocrit (Bld) [Volume fraction] 39.9 % Normal 39.6-48.8 [facility] Comment on above: Performed By: #### H EMOGC #### [facility] (DEFAULT) [address] [place] [address] Hemoglobin (Bld) [Mass/Vol] 12.9 g/dL Low 13.4-16.8 [facility] Comment on above: Performed By: #### H EMOGC #### [facility] (DEFAULT) [address] [place] [address] MCV (RBC) [Entitic vol] 86.4 fL Normal 79.0-94.5 [facility] Comment on above: Performed By: #### H EMOGC #### [facility] (DEFAULT) [address] [place] [address] Mean Cell Hgb 27.9 pg Normal 26.1-33.3 [facility] Comment on above: Performed By: #### H EMOGC #### [facility] (DEFAULT) [address] [place] [address] Mean Cell Hgb Conc 32.3 g/dL Normal 31.9-36.5 [facility] Comment on above: Performed By: #### H EMOGC #### [facility] (DEFAULT) [address] [place] [address] Platelet mean volume (Bld) [Entitic vol] 9.5 fL Normal 8.7-12.3 [facility] Comment on above: Performed By: #### H EMO #### [facility] (DEFAULT) [address] [place] [address] Platelets (Bld) [#/Vol] 210 10*3/uL Normal 146-337 [facility] Comment on above: Performed By: #### H EMOGC #### [facility] (DEFAULT) [address] [place] [address] RBC (Bld) [#/Vol] 4.62 10*6/uL Normal 4.38-5.83 [facility] Comment on above: Performed By: #### H EMO #### [facility] (DEFAULT) [address] [place] [address] RBC Distribution 13.2 % Normal 10.9-14.3 [facility] Comment on above: Performed By: #### H EMO #### [facility] (DEFAULT) [address] [place] [address] WBC (Bld) [#/Vol] 4.12 10*3/uL Normal 3.73-10.10 [facility] Comment on above: Performed By: #### H EMOGC #### [facility] (DEFAULT) [address] [place] [address] Erythrocyte distribution width (RBC) [Ratio] 13.2 % 10.9 - 14.3 % [facility] Hematocrit (Bld) [Volume fraction] 39.9 % 39.6 - 48.8 % [facility] Hemoglobin (Bld) [Mass/Vol] 12.9 g/dL Low 13.4 - 16.8 g/dL [facility] Interpretation and review of laboratory results Abnormal [facility] MCH (RBC) [Entitic mass] 27.9 pg 26.1 - 33.3 pg [facility] MCHC (RBC) [Mass/Vol] 32.3 g/dL 31.9 - 36.5 g/dL [facility] MCV (RBC) [Entitic vol] 86.4 fL 79.0 - 94.5 fL [facility] Platelet mean volume (Bld) [Entitic vol] 9.5 fL 8.7 - 12.3 fL [facility] Platelets (Bld) [#/Vol] 210 10*3/uL 146 - 337 K/uL [facility] RBC (Bld) [#/Vol] 4.62 10*6/uL [facility] WBC (Bld) [#/Vol] 4.12 10*3/uL 3.73 - 10. 10 K/uL [facility] CHEM 7 (LYTES,BUN,CREA,GLUC) on 09-02-2023 Anion gap [Moles/Vol] 13 mmol/L Normal 7-17 [facility] Comment on above: Performed By: #### Y PNRP #### [facility] (DEFAULT) [address] [address] Chloride [Moles/Vol] 105 mmol/L Normal 98-108 [facility] Comment on above: Performed By: #### Y PNRP #### [facility] (DEFAULT) [address] [address] CO2 [Moles/Vol] 22 mmol/L Normal 21-31 [facility] Comment on above: Performed By: #### Y PNRP #### [facility] (DEFAULT) [address] [address] Creatinine [Mass/Vol] 1.25 mg/dL Normal 0.70-1.30 [facility] Comment on above: Performed By: #### Y PNRP #### [facility] (DEFAULT) [address] [address] GFR/1.73 sq M.predicted among non-blacks MDRD (S/P/Bld) [Vol rate/Area] 69 mL/min/{1.73_m2} Normal >=60 [facility] Comment on above: Result Comment: Repo rted eGFR is based on the CKD-EPI 2020 equation using creatinine, age, and sex. Performed By: #### Y PNRP #### [facility] (DEFAULT) [address] [place] [address] Glucose [Mass/Vol] 105 mg/dL High 70-99 [facility] Comment on above: Performed By: #### Y PNRP #### [facility] (DEFAULT) [address] [place] [address] Osmolality [Osmolality] 287 mosm/kg Normal 278-305 [facility] Comment on above: Performed By: #### Y PNRP #### [facility] (DEFAULT) [address] [place] [address] Potassium [Moles/Vol] 4.3 mmol/L Normal 3.5-5.0 [facility] Comment on above: Performed By: #### Y PNRP #### [facility] (DEFAULT) [address] [place] [address] Sodium [Moles/Vol] 136 mmol/L Normal 135-145 [facility] Comment on above: Performed By: #### Y PNRP #### [facility] (DEFAULT) [address] [place] [address] Urea nitrogen [Mass/Vol] 16 mg/dL Normal 7-25 [facility] Comment on above: Performed By: #### Y PNRP #### [facility] (DEFAULT) [address] [place] [address] 31957 Urea nitrogen/Creatinine [Mass ratio] 13 mg/mg Normal [facility] Comment on above: Performed By: #### Y PNRP #### [facility] (DEFAULT) [address] [place] [address] Anion gap [Moles/Vol] 13 mmol/L 7 - 17 mmol/L [facility] Chloride [Moles/Vol] 105 mmol/L 98 - 10 8 mmol/L [facility] CO2 [Moles/Vol] 22 mmol/L 21 - 31 mmol/L [facility] Creatinine [Mass/Vol] 1.25 mg/dL 0.70 - 1.30 mg/dL [facility] eGFR, CKD-EPI, Male 69 - [facility] Glucose [Mass/Vol] 105 mg/dL High 70 - 99 mg/dL [facility] Osmolality Calc [Osmolality] 287 [facility] Potassium [Moles/Vol] 4.3 mmol/L 3.5 - 5.0 mmol/L [facility] Sodium [Moles/Vol] 136 mmol/L 135 - 145 mmol/L [facility] Urea nitrogen [Mass/Vol] 16 mg/dL 7 - 25 mg/dL [facility] Urea nitrogen/Creatinine [Mass ratio] 13 mg/mg [facility] CMV PCR,FLUIDS,URINE,EYE ETC on 09-02-2023 CMV by PCR Result Negative Normal Negative [facility] Comment on above: Result Comment: ADDITIONAL INFORMATION This test was developed and its performance characteristics determined by [facility] in a manner consistent with CLIA requirements. This test has not been cleared or approved by the U.S. Food and Drug Administration. Test Performed by: [facility] - [address] [address] Data Compiler: Rosendo Bose M.D. Ph.D.; CLIA# [id number] Performed By: #### T ACRO #### [facility] (DEFAULT) [address] [place] [address] CMV BY PCR SOURCE BAL RML Normal [facility] Comment on above: Performed By: #### T ACRO #### [facility] (DEFAULT) [address] [place] [address] CMV by PCR Result Negative Normal Negative [facility] Comment on above: Result Comment: ADDITIONAL INFORMATION This test was developed and its performance characteristics determined by [facility] in a manner consistent with CLIA requirements. This test has not been cleared or approved by the U.S. Food and Drug Administration. Test Performed by: [facility] - [address] [address] Data Compiler: Rosendo Bose M.D. Ph.D.; CLIA# [id number] Performed By: #### T ACRO #### [facility] (DEFAULT) [address] [address] CMV BY PCR SOURCE BAL LLL Normal [facility] Comment on above: Performed By: #### T ACRO #### [facility] (DEFAULT) [address] [place] [address] CYTOLOGY, NON-GYNon 09-02-20 CYTOLOGIC DIAGNOSIS [facility] Comment on above: Result Comment: A. B RONCHOALVEOLAR LAVAGE, LEFT LOWER LOBE (CYTOLOGY): FINAL DIAGNOSIS: No Malignant Cells Are Identified Hypocellular Specimen Performed By: #### N ONGNGRAEMEFROBERTA #### [facility] (DEFAULT) [address] [place] [address] Case Report [facility] Comment on above: Result Comment: [facility] Cytology Report Case: [id number] Authorizing Provider: Crow Diaz MD Collected: 09/02/2023 08:38 AM Ordering Location: [facility] Received: 09/02/2023 10:44 AM Pathologist: Sherice Jimenez MD Specimen: BRONCHOALVEOLAR LAVAGE, LLL BAL Performed By: #### N LITZY #### [facility] (DEFAULT) [address] [place] [address] Clinical History Renal transplant. Normal [facility] Comment on above: Performed By: #### N LITZY #### [facility] (DEFAULT) [address] [address] Gross Description Normal [facility] Comment on above: Result Comment: LLL BAL 1 ml hazy colorless fld unfixed 1 TP slide Pap stain For Immediate Release to Patient's MyChart? Yes Performed By: #### N ONGNNONFNA #### [facility] (DEFAULT) [address] [address] FUNGUS CULTUREon 09-02-2023 Bacteria identified Cx Nom (Unsp spec) Normal [facility] Comment on above: Order Comment: Ident ification was performed on the MALDI-TOF mass spectrometer [employer]. This test was developed by [facility]. It has not been cleared or approved by the FDA. The laboratory is regulated under CLIA as qualified to perform high-complexity testing. This test is used for clinical purposes. It should not be regarded as investigational or for research. Result Comment: [facility] [place] Histoplasma capsulatum Performed By: #### H EMOGC #### [facility] (DEFAULT) [address] [address] Bacteria identified Cx Nom (Unsp spec) NO GROWTH DAY 28 OF 28 Normal [facility] Comment on above: Order Comment: Pleas e draw at specified interval PRIOR to dose. Do not hold dose to wait for level. Specimens batched twice per day, (M-) and once per day weekends Method performed is a chemiluminescent microparticle immunoasssay on the [employer] i2000. The range is based on experience at [facility] and users should be aware that target concentrations vary widely depending on concomitant therapy, time post-transplant, and desired degree of immunosuppression. Performed By: #### T ACRO #### [facility] (DEFAULT) [address] [address] HEPATIC FUNCTION PANELon Albumin [Mass/Vol] 3.2 g/dL Low 3.5-5.0 [facility] Comment on above: Performed By: #### Y PNRP #### [facility] (DEFAULT) [address] [place] [address] ALP [Catalytic activity/Vol] 107 U/L Normal 32-126 [facility] Comment on above: Performed By: #### Y PNRP #### [facility] (DEFAULT) [address] [place] [address]447 ALT [Catalytic activity/Vol] 20 U/L Normal 10-52 [facility] Comment on above: Performed By: #### Y PNRP #### [facility] (DEFAULT) [address] [place] [address] 55865 AST [Catalytic activity/Vol] 31 U/L Normal 10-39 [facility] Comment on above: Performed By: #### Y PNRP #### [facility] (DEFAULT) [address] [place] [address] Bilirubin [Mass/Vol] 1.0 mg/dL Normal <1.5 [facility] Comment on above: Performed By: #### Y PNRP #### [facility] (DEFAULT) [address] [place] [address] Bilirubin.indirect [Mass/Vol] 0.3 mg/dL High <0.3 [facility] Comment on above: Performed By: #### Y PNRP #### [facility] (DEFAULT) [address] [place] [address] Protein [Mass/Vol] 6.6 g/dL Normal 6.4-8.3 [facility] Comment on above: Performed By: #### Y PNRP #### [facility] (DEFAULT) [address] [place] [address] Albumin [Mass/Vol] 3.2 g/dL Low 3.5 - 5.0 g/dL [facility] ALP [Catalytic activity/Vol] 107 U/L 32 - 126 U/L [facility] ALT [Catalytic activity/Vol] 20 U/L 10 - 52 U/L [facility] AST [Catalytic activity/Vol] 31 U/L 10 - 39 U/L [facility] Bilirubin [Mass/Vol] 1.0 mg/dL NINF - 1.5 mg/dL [facility] Bilirubin.direct [Mass/Vol] 0.3 mg/dL High NINF - 0.3 mg/dL [facility] Protein [Mass/Vol] 6.6 g/dL 6.4 - 8.3 g/dL [facility] HISTOPLASMA ANTIGEN, FLUIDon 09-02-2023 FH SOURCE BAL RML Normal [facility] Comment on above: Performed By: #### T ACRO #### [facility] (DEFAULT) [address] [address] Histo FLD interpretation Negative Normal [facility] Comment on above: Result Comment: ADDITIONAL INFORMATION Reference interval: None Detected Reportable Range: Positive Results reported in ng/mL from 0.20 ng/mL to 20.00 ng/mL Positive Results above 20.00 ng/mL are reported as 'Above the Limit of Quantification' Cross-reactions occur with Blastomyces spp., Coccidioides spp., and Paracoccidioides brasiliensis. This test was developed and its performance characteristics determined by [facility]. It has not been cleared or approved by the FDA; however, FDA clearance or approval is not currently required for clinical use. The results are not intended to be used as the sole means for clinical diagnosis or patient management decisions. Test Performed by: [facility] [address] [facility] [place] [address] Performed By: #### T ACRO #### [facility] (DEFAULT) [address] [address] Histoplasma Antigen, FLUID Not detected Normal [facility] Comment on above: Performed By: #### T ACRO #### [facility] (DEFAULT) [address] [place] [address] HISTOPLASMA ANTIGEN,URINEon 09-02-2023 H. capsulatum Ag (U) [Mass/Vol] Not detected ng/mL [facility] H. capsulatum Ag IA Ql (U) Not detected Not Detected [facility] HISTOPLASMA CAPSULATUM/BLAST OMYCES SPECIES,PCR FLUIDon 09-02-2023 HISTO/BLASTO RESULT Negative Normal Not Applicable [facility] Comment on above: Result Comment: A Ne gative result from BAL fluid does not rule out the presence of Histoplasma capsulatum because the sensitivity from this source is suboptimal. ADDITIONAL INFORMATION This test was developed and its performance characteristics determined by [facility] in a manner consistent with CLIA requirements. This test has not been cleared or approved by the U.S. Food and Drug Administration. Test Performed by: [place] [address] Data Compiler: Rosendo Bose M.D. Ph.D.; CLIA# [id number] Performed By: #### T ACRO #### [facility] (DEFAULT) [address] [address] Source BAL RML Normal [facility] Comment on above: Performed By: #### T ACRO #### [facility] (DEFAULT) [address] [address] HIV 1 AND 2 ANTIBODIES/P24 A NTIGENOrdered By: Wilma Luque on 09-02-2023 HIV 1+2 Ab+HIV1 p24 Ag IA Ql Non-Reactive Non Reactive [facility] Interpretation and review of laboratory results Normal [facility] HIV 1 AND 2 ANTIBODIES/P24 A NTIGENon 09-02-2023 HIV-1/HIV-2 Ab With p24 Antigen Non-Reactive Normal Non Reactive [facility] Comment on above: Performed By: #### L [id number] ####[facility] (DEFAULT)[address] [address] LEGIONELLA CULTUREon 023 Bacteria identified Cx Nom (Unsp spec) NO GROWTH DAY 7 OF 7 Normal [facility] Comment on above: Performed By: #### H EMO #### [facility] (DEFAULT) [address] [place] [address] Bacteria identified Cx Nom (Unsp spec) NO GROWTH DAY 7 OF 7 Normal [facility] Comment on above: Order Comment: BAL l egionella culture Performed By: #### L EGN #### [facility] (DEFAULT) [address] [place] [address] LEGIONELLA PCRon 09-02-2023 Legionella species, Culture BAL RML Normal [facility] Comment on above: Performed By: #### T ACRO #### [facility] (DEFAULT) [address] [address] Legionella, pcr result Negative Normal Not Applicable [facility] Comment on above: Result Comment: ADDITIONAL INFORMATION This test was developed and its performance characteristics determined by [facility] in a manner consistent with CLIA requirements. This test has not been cleared or approved by the U.S. Food and Drug Administration. Test Performed by: [facility] - [address] [address] Data Compiler: Rosendo Bose M.D. Ph.D.; CLIA# [id number] Performed By: #### T ACRO #### [facility] (DEFAULT) [address] [place] [address] LOWER RESPIRATORY CULTURE, B ACTERIALon 09-02-2023 Bacteria identified Cx Nom (Unsp spec) NO GROWTH DAY 2 OF 2 Normal [facility] Comment on above: Performed By: #### T ACRO #### [facility] (DEFAULT) [address] [address] Microscopic observation Gram stain Nom (Unsp spec) Normal [facility] Comment on above: Result Comment: Cyto centrifuge preparation Neutrophils, Rare Red Blood Cells Present No organisms seen Performed By: #### T ACRO #### [facility] (DEFAULT) [address] [place] [address] Bacteria identified Cx Nom (Unsp spec) NO GROWTH DAY 2 OF 2 Normal [facility] Comment on above: Order Comment: BAL b acterial respiratory culture Performed By: #### H EMOQUINTIN #### [facility] (DEFAULT) [address] [place] [address] Microscopic observation Gram stain Nom (Unsp spec) Normal [facility] Comment on above: Order Comment: BAL b acterial respiratory culture Result Comment: Cyto centrifuge preparation Neutrophils, Moderate Red Blood Cells Present No organisms seen Performed By: #### H ADELE #### [facility] (DEFAULT) [address] [place] [address] MAGNESIUMon 09-02-2023 Magnesium [Mass/Vol] 1.7 mg/dL Normal 1.6-2.6 [facility] Comment on above: Performed By: #### L EGN #### [facility] (DEFAULT) [address] [place] [address] Interpretation and review of laboratory results Normal [facility] Magnesium [Mass/Vol] 1.7 mg/dL 1.6 - 2 .6 mg/dL [facility] No Panel Informationon 09-02 Interpretation and review of laboratory results Abnormal [facility] PNEUMOCYSTIS JIROVECI,PCRon 09-02-2023 PN Report Status DNR Normal [facility] Comment on above: Performed By: #### T ACRO #### [facility] (DEFAULT) [address] [place] [address] PN Specimen Source BAL RML Normal [facility] Comment on above: Performed By: #### T ACRO #### [facility] (DEFAULT) [address] [place] [address] Pneum jiroveci comment DNR Normal [facility] Comment on above: Performed By: #### T ACRO #### [facility] (DEFAULT) [address] [address] Pneumocystis jiroveci,PCR result Negative Normal Not Applicable [facility] Comment on above: Result Comment: ADDITIONAL INFORMATION This test was developed and its performance characteristics determined by [facility] in a manner consistent with CLIA requirements. This test has not been cleared or approved by the U.S. Food and Drug Administration. Test Performed by: [facility] [place] [address] Data Compiler: Rosendo Bose M.D. Ph.D.; IA# [id number] Performed By: #### T ACRO #### [facility] (DEFAULT) [address] [address] PN Report Status DNR Normal [facility] Comment on above: Performed By: #### Y PNRP #### [facility] (DEFAULT) [address] [address] PN Specimen Source BAL LLL Normal [facility] Comment on above: Performed By: #### Y PNRP #### [facility] (DEFAULT) [address] [address] Pneum jiroveci comment DNR Normal [facility] Comment on above: Performed By: #### Y PNRP #### [facility] (DEFAULT) [address] [address] Pneumocystis jiroveci,PCR result Negative Normal Not Applicable [facility] Comment on above: Result Comment: ADDITIONAL INFORMATION This test was developed and its performance characteristics determined by [facility] in a manner consistent with CLIA requirements. This test has not been cleared or approved by the U.S. Food and Drug Administration. Test Performed by: [place] [address] Data Compiler: Rosendo Bose M.D. Ph.D.; [facility]# [id number] Performed By: #### Y [facility] #### [facility] (DEFAULT) [address] [address] TACROLIMUS LEVEL, TROUGH (HI E DRUG LEVEL)on 09-02-2023 Interpretation and review of laboratory results Normal [facility] Tacrolimus (Bld) [Mass/Vol] 4.2 ng/mL [facility] Tacrolimus, Trough 4.2 ng/mL Normal [facility] Transplant: 4.0-12.0, Therapeutic: 5.0-15.0 [facility] Comment on above: Order Comment: Pleas e draw at specified interval PRIOR to dose. Do not hold dose to wait for level. Specimens batched twice per day, (M-) and once per day weekends Method performed is a chemiluminescent microparticle immunoasssay on the [employer] Biologist i2000. The range is based on experience at [facility] and users should be aware that target concentrations vary widely depending on concomitant therapy, time post-transplant, and desired degree of immunosuppression. Performed By: #### T ACRO #### [facility] (DEFAULT) [address] [address] CBC,PLATELETSon 09-01-2023 Hematocrit (Bld) [Volume fraction] 38.9 % Low 39.6-48.8 [facility] Comment on above: Performed By: #### H [facility] #### [facility] (DEFAULT) [address] [address] Hemoglobin (Bld) [Mass/Vol] 12.7 g/dL Low 13.4-16.8 [facility] Comment on above: Performed By: #### H EMO #### [facility] (DEFAULT) [address] [address] MCV (RBC) [Entitic vol] 84.6 fL Normal 79.0-94.5 [facility] Comment on above: Performed By: #### H EMOGC #### [facility] (DEFAULT) [address] [place] [address] Mean Cell Hgb 27.6 pg Normal 26.1-33.3 [facility] Comment on above: Performed By: #### H EMOGC #### [facility] (DEFAULT) [address] [address] Mean Cell Hgb Conc 32.6 g/dL Normal 31.9-36.5 [facility] Comment on above: Performed By: #### H EMOGC #### [facility] (DEFAULT) [address] [address] Platelet mean volume (Bld) [Entitic vol] 9.4 fL Normal 8.7-12.3 [facility] Comment on above: Performed By: #### H EMOGC #### [facility] (DEFAULT) [address] [address] Platelets (Bld) [#/Vol] 209 10*3/uL Normal 146-337 [facility] Comment on above: Performed By: #### H EMOGC #### [facility] (DEFAULT) [address] [address] RBC (Bld) [#/Vol] 4.60 10*6/uL Normal 4.38-5.83 [facility] Comment on above: Performed By: #### H EMOGC #### [facility] (DEFAULT) [address] [address] RBC Distribution 13.4 % Normal 10.9-14.3 [facility] Comment on above: Performed By: #### H EMOGC #### [facility] (DEFAULT) [address] [address] WBC (Bld) [#/Vol] 4.41 10*3/uL Normal 3.73-10.10 [facility] Comment on above: Performed By: #### H EMOGC #### [facility] (DEFAULT) [address] [place] [address] Erythrocyte distribution width (RBC) [Ratio] 13.4 % 10.9 - 14.3 % [facility] Hematocrit (Bld) [Volume fraction] 38.9 % Low 39.6 - 48.8 % [facility] Hemoglobin (Bld) [Mass/Vol] 12.7 g/dL Low 13.4 - 16.8 g/dL [facility] Interpretation and review of laboratory results Abnormal [facility] MCH (RBC) [Entitic mass] 27.6 pg 26.1 - 33.3 pg [facility] MCHC (RBC) [Mass/Vol] 32.6 g/dL 31.9 - 36.5 g/dL [facility] MCV (RBC) [Entitic vol] 84.6 fL 79.0 - 94.5 fL [facility] Platelet mean volume (Bld) [Entitic vol] 9.4 fL 8.7 - 12.3 fL [facility] Platelets (Bld) [#/Vol] 209 10*3/uL 146 - 337 K/uL [facility] RBC (Bld) [#/Vol] 4.60 10*6/uL [facility] WBC (Bld) [#/Vol] 4.41 10*3/uL 3.73 - 10. 10 K/uL [facility] CHEM 7 (LYTES,BUN,CREA,GLUC) on 09-01-2023 Anion gap [Moles/Vol] 14 mmol/L Normal 7-17 [facility] Comment on above: Performed By: ###Walter UNDERWOOD #### [facility] (DEFAULT) [address] [place] [address] Chloride [Moles/Vol] 103 mmol/L Normal 98-108 [facility] Comment on above: Performed By: ###Walter UNDERWOOD #### [facility] (DEFAULT) [address] [place] [address] CO2 [Moles/Vol] 21 mmol/L Normal 21-31 [facility] Comment on above: Performed By: ###Walter UNDERWOOD #### [facility] (DEFAULT) [address] [place] [address] Creatinine [Mass/Vol] 1.16 mg/dL Normal 0.70-1.30 [facility] Comment on above: Performed By: #### Vale UNDERWOOD #### [facility] (DEFAULT) [address] [place] [address] GFR/1.73 sq M.predicted among non-blacks MDRD (S/P/Bld) [Vol rate/Area] 76 mL/min/{1.73_m2} Normal >=60 [facility] Comment on above: Result Comment: Repo rted eGFR is based on the CKD-EPI 2020 equation using creatinine, age, and sex. Performed By: ###Walter UNDERWOOD #### [facility] (DEFAULT) [address] [place] [address] Glucose [Mass/Vol] 117 mg/dL High 70-99 [facility] Comment on above: Performed By: ###Walter UNDERWOOD #### [facility] (DEFAULT) [address] [place] [address] Osmolality [Osmolality] 285 mosm/kg Normal 278-305 [facility] Comment on above: Performed By: ###Walter UNDERWOOD #### [facility] (DEFAULT) [address] [place] [address] Potassium [Moles/Vol] 4.2 mmol/L Normal 3.5-5.0 [facility] Comment on above: Performed By: #### Vale UNDERWOOD #### [facility] (DEFAULT) [address] [place] [address] Sodium [Moles/Vol] 134 mmol/L Low 135-145 [facility] Comment on above: Performed By: #### Vale UNDERWOOD #### [facility] (DEFAULT) [address] [place] [address] Urea nitrogen [Mass/Vol] 18 mg/dL Normal 7-25 [facility] Comment on above: Performed By: #### G YASMINE #### [facility] (DEFAULT) [address] [place] [address] Urea nitrogen/Creatinine [Mass ratio] 16 mg/mg Normal [facility] Comment on above: Performed By: #### G YASMINE #### [facility] (DEFAULT) [address] [place] [address] Anion gap [Moles/Vol] 14 mmol/L 7 - 17 mmol/L [facility] Chloride [Moles/Vol] 103 mmol/L 98 - 10 8 mmol/L [facility] CO2 [Moles/Vol] 21 mmol/L 21 - 31 mmol/L [facility] Creatinine [Mass/Vol] 1.16 mg/dL 0.70 - 1.30 mg/dL [facility] eGFR, CKD-EPI, Male 77 - PINF [facility] Glucose [Mass/Vol] 117 mg/dL High 70 - 99 mg/dL [facility] Osmolality Calc [Osmolality] 285 [facility] Potassium [Moles/Vol] 4.2 mmol/L 3.5 - 5.0 mmol/L [facility] Sodium [Moles/Vol] 134 mmol/L Low 135 - 145 mmol/L [facility] Urea nitrogen [Mass/Vol] 18 mg/dL 7 - 25 mg/dL [facility] Urea nitrogen/Creatinine [Mass ratio] 16 mg/mg [facility] CRYPTOCOCCAL ANTIGENon 09-01 Cryptococcus Antigen,Serum Negative Normal Negative [facility] Comment on above: Performed By: #### H EMO #### [facility] (DEFAULT) [address] [place] [address] Cryptococcus sp Ag Ql (S) Negative Negative [facility] Interpretation and review of laboratory results Normal [facility] HEPATIC FUNCTION PANELon Albumin [Mass/Vol] 3.3 g/dL Low 3.5-5.0 [facility] Comment on above: Performed By: #### C HM7, MGO, HFP ####[facility] (DEFAULT)[address] [place] [address] ALP [Catalytic activity/Vol] 112 U/L Normal 32-126 [facility] Comment on above: Performed By: #### C HM7, MGO, HFP ####[facility] (DEFAULT)[address] [place] [address] ALT [Catalytic activity/Vol] 21 U/L Normal 10-52 [facility] Comment on above: Performed By: #### C HM7, MGO, HFP ####[facility] (DEFAULT)[address] [place] [address] AST [Catalytic activity/Vol] 29 U/L Normal 10-39 [facility] Comment on above: Performed By: #### C HM7, MGO, HFP ####[facility] (DEFAULT)[address] [place] [address] Bilirubin [Mass/Vol] 1.0 mg/dL Normal <1.5 [facility] Comment on above: Performed By: #### C HM7, MGO, HFP ####[facility] (DEFAULT)[address] [place] [address] Bilirubin.indirect [Mass/Vol] 0.2 mg/dL Normal <0.3 [facility] Comment on above: Performed By: #### C HM7, MGO, HFP ####[facility] (DEFAULT)[address] [place] [address] Protein [Mass/Vol] 6.8 g/dL Normal 6.4-8.3 [facility] Comment on above: Performed By: #### C HM7, MGO, HFP ####[facility] (DEFAULT)[address] [place] [address] Albumin [Mass/Vol] 3.3 g/dL Low 3.5 - 5.0 g/dL [facility] ALP [Catalytic activity/Vol] 112 U/L 32 - 126 U/L [facility] ALT [Catalytic activity/Vol] 21 U/L 10 - 52 U/L [facility] AST [Catalytic activity/Vol] 29 U/L 10 - 39 U/L [facility] Bilirubin [Mass/Vol] 1.0 mg/dL NINF - 1.5 mg/dL [facility] Bilirubin.direct [Mass/Vol] 0.2 mg/dL NINF - 0.3 mg/dL [facility] Protein [Mass/Vol] 6.8 g/dL 6.4 - 8.3 g/dL [facility] L. pneumophila 1 Ag IA Ql (U )Ordered By: Carolin Miles on 09-01-2023 Interpretation and review of laboratory results Normal [facility] LEGIONELLA URINARY AGOrdered By: Carolin Miles on 09-01-2023 L. pneumophila 1 Ag IA Ql (U) Negative Negative [facility] MAGNESIUMon 09-01-2023 Magnesium [Mass/Vol] 1.6 mg/dL Normal 1.6-2.6 [facility] Comment on above: Performed By: #### G YASMINE #### [facility] (DEFAULT) [address] [place] [address] Interpretation and review of laboratory results Normal [facility] Magnesium [Mass/Vol] 1.6 mg/dL 1.6 - 2 .6 mg/dL [facility] No Panel Informationon 09-01 Interpretation and review of laboratory results Abnormal [facility] PARVOVIRUS (B19) DNA, PCR, B LOODon 09-01-2023 PARVOVIRUS B19 BY RAPID PCR Not detected Normal Not Detected [facility] Comment on above: Result Comment: The [...] analytical performance characteristics have been determined by [facility] [place] [place]. It has not been cleared or approved by the FDA. This assay has been validated pursuant to the CLIA regulations and is used for clinical purposes. Test Performed at: [facility] [address] [place], [place] Ramon Benavides M.D., Ph.D.,Director of Laboratories Performed By: #### Vale UNDERWOOD #### [facility] (DEFAULT) [address] [place] [address] HI SPEC SOURCE Whole Blood Normal [facility] Comment on above: Performed By: #### Vale UNDERWOOD #### [facility] (DEFAULT) [address] [place] [address] ASPERGILLUS (GALACTOMANNAN), ANTIGENon 08-31-2023 Aspergillus Antigen <0.500 Normal <0.5 [facility] Comment on above: Result Comment: ADDITIONAL INFORMATION This is a qualitative test and the resulted index value is not indicative of disease severity. Serial testing is recommended for patients at high risk for invasive aspergillosis. This assay was performed using the FDA-cleared [employer] Platelia Aspergillus Galactomannan EIA. Test Performed by: [place] [id number] Data Compiler: Rosendo Bose M.D. Ph.D.; CLIA# [id number] Performed By: #### Y PNRP #### [facility] (DEFAULT) [address] [place] [address] CBC,PLATELETSon 08-31-2023 Hematocrit (Bld) [Volume fraction] 39.4 % Low 39.6-48.8 [facility] Comment on above: Performed By: #### T ACRO #### [facility] (DEFAULT) [address] [place] [address] Hemoglobin (Bld) [Mass/Vol] 12.8 g/dL Low 13.4-16.8 [facility] Comment on above: Performed By: #### T ACRO #### [facility] (DEFAULT) [address] [place] [address] MCV (RBC) [Entitic vol] 85.1 fL Normal 79.0-94.5 [facility] Comment on above: Performed By: #### T ACRO #### [facility] (DEFAULT) [address] [place] [address]013 Mean Cell Hgb 27.6 pg Normal 26.1-33.3 [facility] Comment on above: Performed By: #### T ACRO #### [facility] (DEFAULT) [address] [place] [address] 91823 Mean Cell Hgb Conc 32.5 g/dL Normal 31.9-36.5 [facility] Comment on above: Performed By: #### T ACRO #### [facility] (DEFAULT) [address] [place] [address] Platelet mean volume (Bld) [Entitic vol] 9.6 fL Normal 8.7-12.3 [facility] Comment on above: Performed By: #### T ACRO #### [facility] (DEFAULT) [address] [address] Platelets (Bld) [#/Vol] 228 10*3/uL Normal 146-337 [facility] Comment on above: Performed By: #### T ACRO #### [facility] (DEFAULT) [address] [place] [address]997 RBC (Bld) [#/Vol] 4.63 10*6/uL Normal 4.38-5.83 [facility] Comment on above: Performed By: #### T ACRO #### [facility] (DEFAULT) [address] [place] [address] RBC Distribution 13.3 % Normal 10.9-14.3 [facility] Comment on above: Performed By: #### T ACRO #### [facility] (DEFAULT) [address] [place] [address] WBC (Bld) [#/Vol] 4.77 10*3/uL Normal 3.73-10.10 [facility] Comment on above: Performed By: #### T ACRO #### [facility] (DEFAULT) [address] [place] [address] Erythrocyte distribution width (RBC) [Ratio] 13.3 % 10.9 - 14.3 % [facility] Hematocrit (Bld) [Volume fraction] 39.4 % Low 39.6 - 48.8 % [facility] Hemoglobin (Bld) [Mass/Vol] 12.8 g/dL Low 13.4 - 16.8 g/dL [facility] Interpretation and review of laboratory results Abnormal [facility] MCH (RBC) [Entitic mass] 27.6 pg 26.1 - 33.3 pg [facility] MCHC (RBC) [Mass/Vol] 32.5 g/dL 31.9 - 36.5 g/dL [facility] MCV (RBC) [Entitic vol] 85.1 fL 79.0 - 94.5 fL [facility] Platelet mean volume (Bld) [Entitic vol] 9.6 fL 8.7 - 12.3 fL [facility] Platelets (Bld) [#/Vol] 228 10*3/uL 146 - 337 K/uL [facility] RBC (Bld) [#/Vol] 4.63 10*6/uL [facility] WBC (Bld) [#/Vol] 4.77 10*3/uL 3.73 - 10. 10 K/uL [facility] CHEM 7 (LYTES,BUN,CREA,GLUC) on 08-31-2023 Anion gap [Moles/Vol] 13 mmol/L Normal 7-17 [facility] Comment on above: Performed By: #### T ACRO #### [facility] (DEFAULT) [address] [place] [address] Chloride [Moles/Vol] 102 mmol/L Normal 98-108 [facility] Comment on above: Performed By: #### T ACRO #### [facility] (DEFAULT) [address] [place] [address] 22612 CO2 [Moles/Vol] 23 mmol/L Normal 21-31 [facility] Comment on above: Performed By: #### T ACRO #### [facility] (DEFAULT) [address] [place] [address] Creatinine [Mass/Vol] 1.37 mg/dL High 0.70-1.30 [facility] Comment on above: Performed By: #### T ACRO #### [facility] (DEFAULT) [address] [place] [address]61 GFR/1.73 sq M.predicted among non-blacks MDRD (S/P/Bld) [Vol rate/Area] 62 mL/min/{1.73_m2} Normal >=60 [facility] Comment on above: Result Comment: Repo rted eGFR is based on the CKD-EPI 2020 equation using creatinine, age, and sex. Performed By: #### T ACRO #### [facility] (DEFAULT) [address] [place] [address] Glucose [Mass/Vol] 112 mg/dL High 70-99 [facility] Comment on above: Performed By: #### T ACRO #### [facility] (DEFAULT) [address] [place] [address] Osmolality [Osmolality] 284 mosm/kg Normal 278-305 [facility] Comment on above: Performed By: #### T ACRO #### [facility] (DEFAULT) [address] [place] [address] 35829 Potassium [Moles/Vol] 4.4 mmol/L Normal 3.5-5.0 [facility] Comment on above: Performed By: #### T ACRO #### [facility] (DEFAULT) [address] [place] [address] Sodium [Moles/Vol] 134 mmol/L Low 135-145 [facility] Comment on above: Performed By: #### T ACRO #### [facility] (DEFAULT) [address] [place] [address] Urea nitrogen [Mass/Vol] 16 mg/dL Normal 7-25 [facility] Comment on above: Performed By: #### T ACRO #### [facility] (DEFAULT) [address] [place] [address] Urea nitrogen/Creatinine [Mass ratio] 12 mg/mg Normal [facility] Comment on above: Performed By: #### T ACRO #### [facility] (DEFAULT) [address] [place] [address] Anion gap [Moles/Vol] 13 mmol/L 7 - 17 mmol/L [facility] Chloride [Moles/Vol] 102 mmol/L 98 - 10 8 mmol/L [facility] CO2 [Moles/Vol] 23 mmol/L 21 - 31 mmol/L [facility] Creatinine [Mass/Vol] 1.37 mg/dL High 0.70 - 1.30 mg/dL [facility] eGFR, CKD-EPI, Male 62 - PINF [facility] Glucose [Mass/Vol] 112 mg/dL High 70 - 99 mg/dL [facility] Osmolality Calc [Osmolality] 284 [facility] Potassium [Moles/Vol] 4.4 mmol/L 3.5 - 5.0 mmol/L [facility] Sodium [Moles/Vol] 134 mmol/L Low 135 - 145 mmol/L [facility] Urea nitrogen [Mass/Vol] 16 mg/dL 7 - 25 mg/[facility] Urea nitrogen/Creatinine [Mass ratio] 12 [facility] ABDOMEN/PELVIS WITHOUT CO NTRASTon [...] Adrenals: Adrenal glands are unremarkable. Kidneys: The [place] kidneys are atrophic. No stones or hydronephrosis. No focal lesions noted within the [place] kidneys on this noncontrast study. Renovascular calcifications [...] have reviewed and approved this report. Normal [facility] CT Abdomen and Pelvis WO con traston 08-31-2023 RADIOLOGY RADIOLOGY [facility] Radiology Study [facility] (narrative[facility] Pelvis WO con trastOrdered By: Chavez Larkin on 08-31-2023 [facility] Work Phone: CT CHEST WITHOUT CONTRASTon [...] likely reactive. 4. Coronary artery disease. Normal [facility] CT Chest WO contraston 08-31 RADIOLOGY RADIOLOGY [facility] Radiology Study observation (narrative) [facility] CT Chest WO contrastOrdered By: Daisha Patterson on 08-31-2023 [facility] Work Phone: FERRITINon 08-31-2023 Ferritin [Mass/Vol] 409.0 ng/mL High 10.5 - 3 07.3 ng/mL [facility] Interpretation and review of laboratory results Abnormal [facility] Ferritin [Mass/Vol] 409.0 ng/mL High 10.5-307.3 [facility] Comment on above: Performed By: #### T ACRO #### [facility] (DEFAULT) [address] [place] [address] HEPATIC FUNCTION PANELon Albumin [Mass/Vol] 3.3 g/dL Low 3.5-5.0 [facility] Comment on above: Performed By: #### T ACRO #### [facility] (DEFAULT) [address] [place] [address] ALP [Catalytic activity/Vol] 113 U/L Normal 32-126 [facility] Comment on above: Performed By: #### T ACRO #### [facility] (DEFAULT) [address] [place] [address] ALT [Catalytic activity/Vol] 25 U/L Normal 10-52 [facility] Comment on above: Performed By: #### T ACRO #### [facility] (DEFAULT) [address] [place] [address]509 AST [Catalytic activity/Vol] 31 U/L Normal 10-39 [facility] Comment on above: Performed By: #### T ACRO #### [facility] (DEFAULT) [address] [place] [address]9721 Bilirubin [Mass/Vol] 1.1 mg/dL Normal <1.5 [facility] Comment on above: Performed By: #### T ACRO #### [facility] (DEFAULT) [address] [place] [address] Bilirubin.indirect [Mass/Vol] 0.3 mg/dL High <0.3 [facility] Comment on above: Performed By: #### T ACRO #### [facility] (DEFAULT) [address] [place] [address]79 Protein [Mass/Vol] 7.0 g/dL Normal 6.4-8.3 [facility] Comment on above: Performed By: #### T ACRO #### [facility] (DEFAULT) [address] [place] [address]79 Albumin [Mass/Vol] 3.3 g/dL Low 3.5 - 5.0 g/dL [facility] ALP [Catalytic activity/Vol] 113 U/L 32 - 126 U/L [facility] ALT [Catalytic activity/Vol] 25 U/L 10 - 52 U/L [facility] AST [Catalytic activity/Vol] 31 U/L 10 - 39 U/L [facility] Bilirubin [Mass/Vol] 1.1 mg/dL NINF - 1.5 mg/dL [facility] Bilirubin.direct [Mass/Vol] 0.3 mg/dL High NINF - 0.3 mg/dL [facility] Protein [Mass/Vol] 7.0 g/dL 6.4 - 8.3 g/dL [facility] LEGIONELLA URINARY AGon - Legionella Urinary Antigen Negative Normal Negative [facility] Comment on above: Performed By: #### T ACRO #### [facility] (DEFAULT) [address] [place] [address] MAGNESIUMon 08-31-2023 Magnesium [Mass/Vol] 1.7 mg/dL Normal 1.6-2.6 [facility] Comment on above: Performed By: #### T ACRO #### [facility] (DEFAULT) [address] [place] [address] Interpretation and review of laboratory results Normal [facility] Magnesium [Mass/Vol] 1.7 mg/dL 1.6 - 2 .6 mg/dL [facility] No Panel Informationon 08-31 Interpretation and review of laboratory results Abnormal [facility] PROCALCITONINon 08-31-2023 Interpretation and review of laboratory results Normal [facility] Procalcitonin [Mass/Vol] 0.23 ng/mL NINF - 0.50 ng/mL [facility] Procalcitonin 0.23 ng/mL Normal <0.50 [facility] Comment on above: Result Comment: Proc [...] and trend procalcitonin in various clinical settings. [email or web address] Two common cutoffs associated with bacterial infections are as follows. Respiratory tract infections: >0.25 ng/mL Sepsis/septic shock: >0.5 ng/mL Procalcitonin should not be used alone as a diagnostic tool, however. All procalcitonin results should be interpreted in association with the patients clinical condition and all laboratory findings. Performed By: #### T ACRO #### [facility] (DEFAULT) [address] [place] [address] TACROLIMUS LEVEL, TROUGH (HI E DRUG LEVEL)Ordered By: Yanira Marcum on 08-31-2023 Interpretation and review of laboratory results Normal [facility] Tacrolimus (Bld) [Mass/Vol] 5.9 ng/mL [facility] TACROLIMUS LEVEL, TROUGH (HI E DRUG LEVEL)on 08-31-2023 Tacrolimus, Trough 5.9 ng/mL Normal [facility] Sus[facility] ow Transplant: 4.0-12.0, Therapeutic: 5.0-15.0 [facility] Comment on above: Order Comment: Pleas e draw at specified interval PRIOR to dose. Do not hold dose to wait for level. Specimens batched twice per day, (M-F) and once per day weekendsMethod performed is a chemiluminescent microparticle immunoasssay on the [employer] i2000.The range is based on experience at [facility] and users should be aware that target concentrations vary widely depending on concomitant therapy, time post-transplant, and desired degree of immunosuppression. Performed By: #### T ACRO ####[facility] (DEFAULT)[address] [place] [phone] URINE CULTUREOrdered By: Jorge crowe Held on 08-31-2023 Bacteria identified Cx Nom (Unsp spec) No Growth [facility] DARYL AURIS SCREEN BY PCRO rdered By: Mynor Alejandro on 08-30-2023 Daryl auris Screen by PCR Not detected Not Detected [facility] Interpretation and review of laboratory results Normal [facility] CBC,PLATELETSon 08-30-2023 Hematocrit (Bld) [Volume fraction] 41.3 % Normal 39.6-48.8 [facility] Comment on above: Performed By: #### G YASMINE #### [facility] (DEFAULT) [address] [place] [address]8 Hemoglobin (Bld) [Mass/Vol] 13.2 g/dL Low 13.4-16.8 [facility] Comment on above: Performed By: #### Vale UNDERWOOD #### [facility] (DEFAULT) [address] [place] [address] 23063 MCV (RBC) [Entitic vol] 85.5 fL Normal 79.0-94.5 [facility] Comment on above: Performed By: #### Vale UNDERWOOD #### [facility] (DEFAULT) [address] [place] [address] 90961 Mean Cell Hgb 27.3 pg Normal 26.1-33.3 [facility] Comment on above: Performed By: #### G ASAASHISH #### [facility] (DEFAULT) [address] [place] [address] 78578 Mean Cell Hgb Conc 32.0 g/dL Normal 31.9-36.5 [facility] Comment on above: Performed By: #### Vale UNDERWOOD #### [facility] (DEFAULT) [address] [place] [address] 88079 Platelet mean volume (Bld) [Entitic vol] 9.2 fL Normal 8.7-12.3 [facility] Comment on above: Performed By: #### Vale UNDERWOOD #### [facility] (DEFAULT) [address] [place] [address]853 Platelets (Bld) [#/Vol] 235 10*3/uL Normal 146-337 [facility] Comment on above: Performed By: #### Vale UNDERWOOD #### [facility] (DEFAULT) [address] [address] RBC (Bld) [#/Vol] 4.83 10*6/uL Normal 4.38-5.83 [facility] Comment on above: Performed By: ###Walter UNDERWOOD #### [facility] (DEFAULT) [address] [place] [address] 39957 RBC Distribution 13.3 % Normal 10.9-14.3 [facility] Comment on above: Performed By: ###Walter UNDERWOOD #### [facility] (DEFAULT) [address] [place] [address]505 WBC (Bld) [#/Vol] 4.96 10*3/uL Normal 3.73-10.10 [facility] Comment on above: Performed By: ###Walter UNDERWOOD #### [facility] (DEFAULT) [address] [address] Erythrocyte distribution width (RBC) [Ratio] 13.3 % 10.9 - 14.3 % [facility] Hematocrit (Bld) [Volume fraction] 41.3 % 39.6 - 48.8 % [facility] Hemoglobin (Bld) [Mass/Vol] 13.2 g/dL Low 13.4 - 16.8 g/dL [facility] Interpretation and review of laboratory results Abnormal [facility] MCH (RBC) [Entitic mass] 27.3 pg 26.1 - 33.3 pg [facility] MCHC (RBC) [Mass/Vol] 32.0 g/dL 31.9 - 36.5 g/dL [facility] MCV (RBC) [Entitic vol] 85.5 fL 79.0 - 94.5 fL [facility] Platelet mean volume (Bld) [Entitic vol] 9.2 fL 8.7 - 12.3 fL [facility] Platelets (Bld) [#/Vol] 235 10*3/uL 146 - 337 K/uL [facility] RBC (Bld) [#/Vol] 4.83 10*6/uL [facility] WBC (Bld) [#/Vol] 4.96 10*3/uL 3.73 - 10. 10 K/uL [facility] CHEM 7 (LYTES,BUN,CREA,GLUC) on 08-30-2023 Anion gap [Moles/Vol] 14 mmol/L Normal 7-17 [facility] Comment on above: Performed By: #### T ACRO #### [facility] (DEFAULT) [address] [place] [address] Chloride [Moles/Vol] 102 mmol/L Normal 98-108 [facility] Comment on above: Performed By: #### T ACRO #### [facility] (DEFAULT) [address] [place] [address] 83198 CO2 [Moles/Vol] 20 mmol/L Low 21-31 [facility] Comment on above: Performed By: #### T ACRO #### [facility] (DEFAULT) [address] [place] [address] 24571 Creatinine [Mass/Vol] 1.56 mg/dL High 0.70-1.30 [facility] Comment on above: Performed By: #### T ACRO #### [facility] (DEFAULT) [address] [place] [address] 81947 GFR/1.73 sq M.predicted among non-blacks MDRD (S/P/Bld) [Vol rate/Area] 53 mL/min/{1.73_m2} Low >=60 [facility] Comment on above: Result Comment: Repo rted eGFR is based on the CKD-EPI 2020 equation using creatinine, age, and sex. Performed By: #### T ACRO #### [facility] (DEFAULT) [address] [place] [address] Glucose [Mass/Vol] 123 mg/dL High 70-99 [facility] Comment on above: Performed By: #### T ACRO #### [facility] (DEFAULT) [address] [place] [address] 83904 Osmolality [Osmolality] 281 mosm/kg Normal 278-305 [facility] Comment on above: Performed By: #### T ACRO #### [facility] (DEFAULT) [address] [place] [address] 83984 Potassium [Moles/Vol] 4.3 mmol/L Normal 3.5-5.0 [facility] Comment on above: Performed By: #### T ACRO #### [facility] (DEFAULT) [address] [place] [address] 17590 Sodium [Moles/Vol] 132 mmol/L Low 135-145 [facility] Comment on above: Performed By: #### T ACRO #### [facility] (DEFAULT) [address] [place] [address] 04091 Urea nitrogen [Mass/Vol] 16 mg/dL Normal 7-25 [facility] Comment on above: Performed By: #### T ACRO #### [facility] (DEFAULT) [address] [place] [address] 48220 Urea nitrogen/Creatinine [Mass ratio] 10 mg/mg Normal [facility] Comment on above: Performed By: #### T ACRO #### [facility] (DEFAULT) [address] [place] [address] Anion gap [Moles/Vol] 14 mmol/L 7 - 17 mmol/L [facility] Chloride [Moles/Vol] 102 mmol/L 98 - 10 8 mmol/L [facility] CO2 [Moles/Vol] 20 mmol/L Low 21 - 31 mmol/L [facility] Creatinine [Mass/Vol] 1.56 mg/dL High 0.70 - 1.30 mg/dL [facility] eGFR, CKD-EPI, Male 53 Low - PINF [facility] Glucose [Mass/Vol] 123 mg/dL High 70 - 99 mg/dL [facility] Osmolality Calc [Osmolality] 281 [facility] Potassium [Moles/Vol] 4.3 mmol/L 3.5 - 5.0 mmol/L [facility] Sodium [Moles/Vol] 132 mmol/L Low 135 - 145 mmol/L [facility] Urea nitrogen [Mass/Vol] 16 mg/dL 7 - 25 mg/dL [facility] Urea nitrogen/Creatinine [Mass ratio] 10 mg/mg [facility] EXTRA MICROon 08-30-2023 [facility] HEPATIC FUNCTION PANELon Albumin [Mass/Vol] 3.7 g/dL Normal 3.5-5.0 [facility] Comment on above: Performed By: #### T ACRO #### [facility] (DEFAULT) [address] [place] [address] ALP [Catalytic activity/Vol] 115 U/L Normal 32-126 [facility] Comment on above: Performed By: #### T ACRO #### [facility] (DEFAULT) [address] [place] [address] ALT [Catalytic activity/Vol] 22 U/L Normal 10-52 [facility] Comment on above: Performed By: #### T ACRO #### [facility] (DEFAULT) [address] [place] [address] AST [Catalytic activity/Vol] 34 U/L Normal 10-39 [facility] Comment on above: Performed By: #### T ACRO #### [facility] (DEFAULT) [address] [place] [address]659 Bilirubin [Mass/Vol] 1.2 mg/dL Normal <1.5 [facility] Comment on above: Performed By: #### T ACRO #### [facility] (DEFAULT) [address] [place] [address] 38620 Bilirubin.indirect [Mass/Vol] 0.3 mg/dL High <0.3 [facility] Comment on above: Performed By: #### T ACRO #### [facility] (DEFAULT) [address] [place] [address] 23148 Protein [Mass/Vol] 7.7 g/dL Normal 6.4-8.3 [facility] Comment on above: Performed By: #### T ACRO #### [facility] (DEFAULT) [address] [place] [address]1815 Albumin [Mass/Vol] 3.7 g/dL 3.5 - 5.0 g/dL [facility] ALP [Catalytic activity/Vol] 115 U/L 32 - 126 U/L [facility] ALT [Catalytic activity/Vol] 22 U/L 10 - 52 U/L [facility] AST [Catalytic activity/Vol] 34 U/L 10 - 39 U/L [facility] Bilirubin [Mass/Vol] 1.2 mg/dL [facility] - 1.5 mg/dL [facility] Bilirubin.direct [Mass/Vol] 0.3 mg/dL High NINF - 0.3 mg/dL [facility] Protein [Mass/Vol] 7.7 g/dL 6.4 - 8.3 g/dL [facility] MAGNESIUMon 08-30-2023 Magnesium [Mass/Vol] 1.8 mg/dL Normal 1.6-2.6 [facility] Comment on above: Performed By: #### T ACRO #### [facility] (DEFAULT) [address] [place] [address] Interpretation and review of laboratory results Normal [facility] Magnesium [Mass/Vol] 1.8 mg/dL 1.6 - 2 .6 mg/dL [facility] No Panel Informationon 08-30 Interpretation and review of laboratory results Abnormal [facility] CBC,PLATELETSon 08-29-2023 Hematocrit (Bld) [Volume fraction] 37.6 % Low 39.6-48.8 [facility] Comment on above: Performed By: #### H EMOGC #### [facility] (DEFAULT) [address] [place] [address]00 Hemoglobin (Bld) [Mass/Vol] 12.2 g/dL Low 13.4-16.8 [facility] Comment on above: Performed By: #### H EMOGC #### [facility] (DEFAULT) [address] [place] [address] 18163 MCV (RBC) [Entitic vol] 85.1 fL Normal 79.0-94.5 [facility] Comment on above: Performed By: #### H EMOGC #### [facility] (DEFAULT) [address] [place] [address] 00423 Mean Cell Hgb 27.6 pg Normal 26.1-33.3 [facility] Comment on above: Performed By: #### H EMOGC #### [facility] (DEFAULT) [address] [place] [address] 20125 Mean Cell Hgb Conc 32.4 g/dL Normal 31.9-36.5 [facility] Comment on above: Performed By: #### H EMOGC #### [facility] (DEFAULT) [address] [place] [address] 71874 Platelet mean volume (Bld) [Entitic vol] 9.4 fL Normal 8.7-12.3 [facility] Comment on above: Performed By: #### H EMOGC #### [facility] (DEFAULT) [address] [place] [address] 58527 Platelets (Bld) [#/Vol] 233 10*3/uL Normal 146-337 [facility] Comment on above: Performed By: #### H EMO #### [facility] (DEFAULT) [address] [place] [address] 97499 RBC (Bld) [#/Vol] 4.42 10*6/uL Normal 4.38-5.83 [facility] Comment on above: Performed By: #### H EMO #### [facility] (DEFAULT) [address] [place] [address] 79300 RBC Distribution 13.4 % Normal 10.9-14.3 [facility] Comment on above: Performed By: #### H EMO #### [facility] (DEFAULT) [address] [place] [address] 27812 WBC (Bld) [#/Vol] 4.92 10*3/uL Normal 3.73-10.10 [facility] Comment on above: Performed By: #### H [facility] #### [facility] (DEFAULT) [address] [place] [address] 18715 Erythrocyte distribution width (RBC) [Ratio] 13.4 % 10.9 - 14.3 % [facility] Hematocrit (Bld) [Volume fraction] 37.6 % Low 39.6 - 48.8 % [facility] Hemoglobin (Bld) [Mass/Vol] 12.2 g/dL Low 13.4 - 16.8 g/dL [facility] Interpretation and review of laboratory results Abnormal [facility] MCH (RBC) [Entitic mass] 27.6 pg 26.1 - 33.3 pg [facility] MCHC (RBC) [Mass/Vol] 32.4 g/dL 31.9 - 36.5 g/dL [facility] MCV (RBC) [Entitic vol] 85.1 fL 79.0 - 94.5 fL [facility] Platelet mean volume (Bld) [Entitic vol] 9.4 fL 8.7 - 12.3 fL [facility] Platelets (Bld) [#/Vol] 233 10*3/uL 146 - 337 K/uL [facility] RBC (Bld) [#/Vol] 4.42 10*6/uL [facility] WBC (Bld) [#/Vol] 4.92 10*3/uL 3.73 - 10. 10 K/uL [facility] CHEM 7 (LYTES,BUN,CREA,GLUC) on 08-29-2023 Anion gap [Moles/Vol] 13 mmol/L Normal 7-17 [facility] Comment on above: Performed By: #### Vale UNDERWOOD #### [facility] (DEFAULT) [address] [place] [address] 28867 Chloride [Moles/Vol] 105 mmol/L Normal 98-108 [facility] Comment on above: Performed By: #### Vale UNDERWOOD #### [facility] (DEFAULT) [address] [place] [address] 75987 CO2 [Moles/Vol] 20 mmol/L Low 21-31 [facility] Comment on above: Performed By: #### Vale UNDERWOOD #### [facility] (DEFAULT) [address] [place] [address] 74457 Creatinine [Mass/Vol] 1.55 mg/dL High 0.70-1.30 [facility] Comment on above: Performed By: #### G YASMINE #### [facility] (DEFAULT) [address] [place] [address] 12383 GFR/1.73 sq M.predicted among non-blacks MDRD (S/P/Bld) [Vol rate/Area] 54 mL/min/{1.73_m2} Low >=60 [facility] Comment on above: Result Comment: Repo rted eGFR is based on the CKD-EPI 2020 equation using creatinine, age, and sex. Performed By: #### G YASMINE #### [facility] (DEFAULT) [address] [place] [address] 21414 Glucose [Mass/Vol] 108 mg/dL High 70-99 [facility] Comment on above: Performed By: #### Vale UNDERWOOD #### [facility] (DEFAULT) [address] [place] [address] 04236 Osmolality [Osmolality] 283 mosm/kg Normal 278-305 [facility] Comment on above: Performed By: #### Vale UNDERWOOD #### [facility] (DEFAULT) [address] [place] [address] 50699 Potassium [Moles/Vol] 4.5 mmol/L Normal 3.5-5.0 [facility] Comment on above: Performed By: #### Vale UNDERWOOD #### [facility] (DEFAULT) [address] [place] [address] 44972 Sodium [Moles/Vol] 133 mmol/L Low 135-145 [facility] Comment on above: Performed By: #### Vale UNDERWOOD #### [facility] (DEFAULT) [address] [place] [address] 70710 Urea nitrogen [Mass/Vol] 19 mg/dL Normal 7-25 [facility] Comment on above: Performed By: #### Vale UNDERWOOD #### [facility] (DEFAULT) [address] [place] [address] 25484 Urea nitrogen/Creatinine [Mass ratio] 12 mg/mg Normal [facility] Comment on above: Performed By: #### Vale UNDERWOOD #### [facility] (DEFAULT) [address] [place] [address] 98914 Anion gap [Moles/Vol] 13 mmol/L 7 - 17 mmol/L [facility] Chloride [Moles/Vol] 105 mmol/L 98 - 10 8 mmol/L [facility] CO2 [Moles/Vol] 20 mmol/L Low 21 - 31 mmol/L [facility] Creatinine [Mass/Vol] 1.55 mg/dL High 0.70 - 1.30 mg/dL [facility] eGFR, CKD-EPI, Male 55 Low - [facility]F [facility] Glucose [Mass/Vol] 108 mg/dL High 70 - 99 mg/dL [facility] Osmolality Calc [Osmolality] 283 [facility] Potassium [Moles/Vol] 4.5 mmol/L 3.5 - 5.0 mmol/L [facility] Sodium [Moles/Vol] 133 mmol/L Low 135 - 145 mmol/L [facility] Urea nitrogen [Mass/Vol] 19 mg/dL 7 - 25 mg/dL [facility] Urea nitrogen/Creatinine [Mass ratio] 12 mg/mg [facility] GGTon 08-29-2023 Gamma glutamyl transferase [Catalytic activity/Vol] 64 U/L 8 - 64 U/L [facility] Interpretation and review of laboratory results Normal [facility] Gamma glutamyl transferase [Catalytic activity/Vol] 64 U/L Normal 8-64 [facility] Comment on above: Performed By: #### Vale UNDERWOOD #### [facility] (DEFAULT) [address] [place] [address] 20268 HEPATIC FUNCTION PANELon Albumin [Mass/Vol] 3.3 g/dL Low 3.5-5.0 [facility] Comment on above: Performed By: #### Vale UNDERWOOD #### [facility] (DEFAULT) [address] [place] [address] 76758 ALP [Catalytic activity/Vol] 103 U/L Normal 32-126 [facility] Comment on above: Performed By: #### Vale UNDERWOOD #### [facility] (DEFAULT) [address] [place] [address] 70851 ALT [Catalytic activity/Vol] 18 U/L Normal 10-52 [facility] Comment on above: Performed By: #### Vale UNDERWOOD #### [facility] (DEFAULT) [address] [place] [address] 92774 AST [Catalytic activity/Vol] 27 U/L Normal 10-39 [facility] Comment on above: Performed By: #### Vale UNDERWOOD #### [facility] (DEFAULT) [address] [place] [address] 73744 Bilirubin [Mass/Vol] 1.1 mg/dL Normal <1.5 [facility] Comment on above: Performed By: #### G YASMINE #### [facility] (DEFAULT) [address] [place] [address] 17930 Bilirubin.indirect [Mass/Vol] 0.3 mg/dL High <0.3 [facility] Comment on above: Performed By: #### G YASMINE #### [facility] (DEFAULT) [address] [place] [address] 00690 Protein [Mass/Vol] 6.8 g/dL Normal 6.4-8.3 [facility] Comment on above: Performed By: #### Vale UNDERWOOD #### [facility] (DEFAULT) [address] [place] [address] 96155 Albumin [Mass/Vol] 3.3 g/dL Low 3.5 - 5.0 g/dL [facility] ALP [Catalytic activity/Vol] 103 U/L 32 - 126 U/L [facility] ALT [Catalytic activity/Vol] 18 U/L 10 - 52 U/L [facility] AST [Catalytic activity/Vol] 27 U/L 10 - 39 U/L [facility] Bilirubin [Mass/Vol] 1.1 mg/dL [facility] - 1.5 mg/dL [facility] Bilirubin.direct [Mass/Vol] 0.3 mg/dL High NINF - 0.3 mg/dL [facility] Protein [Mass/Vol] 6.8 g/dL 6.4 - 8.3 g/dL [facility] HISTOPLASMA AND BLASTOMYCES ANTIGEN, ENZYME IMMUNOASSAY, SERMon 08-29-2023 Histoplasma/Blastomyc es Ag Result Detected Invalid Interpretation Code Not Detected [facility] Comment on above: Result Comment: Anti gen from Histoplasma or Blastomyces (unable to differentiate) detected. Result should be correlated with clinical presentation, exposure history, and other diagnostic procedures, including culture, serology, histopathology, and/or radiographic findings, to aid in the differentiation between histoplasmosis and blastomycosis. CRITICAL RESULT Performed By: #### Y PNRP #### [facility] (DEFAULT) [address] [address] Histoplasma/Blastomyc es Ag Value 5.3 ng/mL Normal [facility] Comment on above: Result Comment: ADDITIONAL INFORMATION This test was developed and its performance characteristics determined by [facility] in a manner consistent with CLIA requirements. This test has not been cleared or approved by the U.S. Food and Drug Administration. Test Performed by: [facility] [place] [address] Data Compiler: Rosendo Bose M.D. Ph.D.; CLIA# [id number] Performed By: #### Y PNRP #### [facility] (DEFAULT) [address] [place] [address]106 HISTOPLASMA ANTIGEN,URINEon 08-29-2023 HISTOPLASM AG, URINE Not detected Normal Not Detected [facility] Comment on above: Result Comment: No H istoplasma antigen detected. False negative results may occur. Repeat testing on a new specimen should be considered if clinically indicated. Performed By: #### T ACRO #### [facility] (DEFAULT) [address] [place] [address] 49863 Histoplasma Ag Value Not detected Normal [facility] Comment on above: Result Comment: ADDITIONAL INFORMATION This test has been modified from the vp scientific affairs's instructions. Its performance characteristics were determined by [facility] in a manner consistent with CLIA requirements. This test has not been cleared or approved by the U.S. Food and Drug Administration. Test Performed by: [facility] [place] [address] Data Compiler: Rosendo Bose M.D. Ph.D.; CLIA# [id number] Performed By: #### T ACRO #### [facility] (DEFAULT) [address] [place] [address] 48359 MAGNESIUMon 08-29-2023 Magnesium [Mass/Vol] 1.7 mg/dL Normal 1.6-2.6 [facility] Comment on above: Performed By: #### G YASMINE #### [facility] (DEFAULT) [address] [place] [address] 87906 Interpretation and review of laboratory results Normal [facility] Magnesium [Mass/Vol] 1.7 mg/dL 1.6 - 2 .6 mg/dL [facility] No Panel Informationon 08-29 Interpretation and review of laboratory results Abnormal [facility] PT,INR,PTTon 08-29-2023 aPTT Coag (Bld) [Time] 29.3 s Normal 24.0-34.3 [facility] Comment on above: Performed By: #### L EGN #### [facility] (DEFAULT) [address] [place] [address] 15568 INR Coag (PPP) [Relative time] 1.1 {INR} Normal 0.9-1.1 [facility] Comment on above: Performed By: #### L EGN #### [facility] (DEFAULT) [address] [place] [address] 62925 PT Coag (PPP) [Time] 13.8 s Normal 11.9-14.2 [facility] Comment on above: Performed By: #### L EGN #### [facility] (DEFAULT) [address] [place] [address] 05448 aPTT Coag (PPP) [Time] 29.3 s [facility] INR Coag (Bld) [Relative time] 1.1 {INR} 0.9 - 1.1 [facility] Interpretation and review of laboratory results Normal [facility] PT Coag (PPP) [Time] 13.8 s [facility] Portable XR Chest Viewson RADIOLOGY RADIOLOGY [facility] Portable XR Chest ViewsOrder ed By: Gerald Baer on 08-29-2023 [facility] Work Phone: TACROLIMUS LEVEL, TROUGH (HI E DRUG LEVEL)on 08-29-2023 Interpretation and review of laboratory results Normal [facility] Tacrolimus (Bld) [Mass/Vol] 8.9 ng/mL [facility] Tacrolimus, Trough 8.9 ng/mL Normal [facility] Transplant: 4.0-12.0, Therapeutic: 5.0-15.0 [facility] Comment on above: Order Comment: Pleas e draw at specified interval PRIOR to dose. Do not hold dose to wait for level. Specimens batched twice per day, (M-F) and once per day weekendsMethod performed is a chemiluminescent microparticle immunoasssay on the [employer] i2000.The range is based on experience at [facility] and users should be aware that target concentrations vary widely depending on concomitant therapy, time post-transplant, and desired degree of immunosuppression. Performed By: #### H EMO #### [facility] (DEFAULT) [address] [address] Tacrolimus, Trough 8.7 ng/mL Normal [facility] Transplant: 4.0-12.0, Therapeutic: 5.0-15.0 [facility] Comment on above: Order Comment: Pleas e draw at specified interval PRIOR to dose. Do not hold dose to wait for level. Specimens batched twice per day, (M-F) and once per day weekends Method performed is a chemiluminescent microparticle immunoasssay on the [employer] i2000. The range is based on experience at [facility] and users should be aware that target concentrations vary widely depending on concomitant therapy, time post-transplant, and desired degree of immunosuppression. Performed By: #### T ACRO #### [facility] (DEFAULT) [address] [address] TACROLIMUS LEVEL, TROUGH (HI E DRUG LEVEL)Ordered By: Roxanne Louie on 08-29-2023 Interpretation and review of laboratory results Normal [facility] Tacrolimus (Bld) [Mass/Vol] 8.7 ng/mL [facility] URINALYSIS REFLEX TO CULTURE PERFORMABLEon 08-29-2023 Appearance (U) Clear Normal Clear [facility] Comment on above: Order Comment: Pleas e draw at specified interval PRIOR to dose. Do not hold dose to wait for level. Specimens batched twice per day, (M-F) and once per day weekends Method performed is a chemiluminescent microparticle immunoasssay on the [employer] i2000. The range is based on experience at [facility] and users should be aware that target concentrations vary widely depending on concomitant therapy, time post-transplant, and desired degree of immunosuppression. Performed By: #### T ACRO #### [facility] (DEFAULT) [address] [address] Bacteria ABSENT Normal ABSENT [facility] Comment on above: Order Comment: Pleas e draw at specified interval PRIOR to dose. Do not hold dose to wait for level. Specimens batched twice per day, (M-F) and once per day weekends Method performed is a chemiluminescent microparticle immunoasssay on the [employer] i2000. The range is based on experience at [facility] and users should be aware that target concentrations vary widely depending on concomitant therapy, time post-transplant, and desired degree of immunosuppression. Performed By: #### T ACRO #### [facility] (DEFAULT) [address] [address] Blood Urine Trace Abnormal Negative [facility] Comment on above: Order Comment: Pleas e draw at specified interval PRIOR to dose. Do not hold dose to wait for level. Specimens batched twice per day, (M-F) and once per day weekends Method performed is a chemiluminescent microparticle immunoasssay on the [employer] i2000. The range is based on experience at [facility] and users should be aware that target concentrations vary widely depending on concomitant therapy, time post-transplant, and desired degree of immunosuppression. Performed By: #### T ACRO #### [facility] (DEFAULT) [address] [address] Calcium Oxalate Crystals PRESENT Normal [facility] Comment on above: Order Comment: Pleas e draw at specified interval PRIOR to dose. Do not hold dose to wait for level. Specimens batched twice per day, (M-F) and once per day weekends Method performed is a chemiluminescent microparticle immunoasssay on the [employer] i2000. The range is based on experience at [facility] and users should be aware that target concentrations vary widely depending on concomitant therapy, time post-transplant, and desired degree of immunosuppression. Performed By: #### T ACRO #### [facility] [address] [address] Color (U) Yellow Normal Yellow [facility] Comment on above: Order Comment: Pleas e draw at specified interval PRIOR to dose. Do not hold dose to wait for level. Specimens batched twice per day, (M-F) and once per day weekends Method performed is a chemiluminescent microparticle immunoasssay on the [employer] i2000. The range is based on experience at [facility] and users should be aware that target concentrations vary widely depending on concomitant therapy, time post-transplant, and desired degree of immunosuppression. Performed By: #### T ACRO #### [facility] (DEFAULT) [address] [address] Glucose Ql (U) Negative Normal Negative [facility] Comment on above: Order Comment: Pleas e draw at specified interval PRIOR to dose. Do not hold dose to wait for level. Specimens batched twice per day, (M-F) and once per day weekends Method performed is a chemiluminescent microparticle immunoasssay on the [employer] i2000. The range is based on experience at [facility] and users should be aware that target concentrations vary widely depending on concomitant therapy, time post-transplant, and desired degree of immunosuppression. Performed By: #### T ACRO #### [facility] (DEFAULT) [address] [place] [address] 08431 Ketones Ql (U) Negative Normal Negative [facility] Comment on above: Order Comment: Pleas e draw at specified interval PRIOR to dose. Do not hold dose to wait for level. Specimens batched twice per day, (M-F) and once per day weekends Method performed is a chemiluminescent microparticle immunoasssay on the [employer] i2000. The range is based on experience at [facility] and users should be aware that target concentrations vary widely depending on concomitant therapy, time post-transplant, and desired degree of immunosuppression. Performed By: #### T ACRO #### [facility] [address] [place] [address] 12669 Leukocyte esterase Test strip Ql (U) Negative Normal Negative [facility] Comment on above: Order Comment: Pleas e draw at specified interval PRIOR to dose. Do not hold dose to wait for level. Specimens batched twice per day, (M-F) and once per day weekends Method performed is a chemiluminescent microparticle immunoasssay on the [employer] i2000. The range is based on experience at [facility] and users should be aware that target concentrations vary widely depending on concomitant therapy, time post-transplant, and desired degree of immunosuppression. Performed By: #### T ACRO #### [facility] [address] [place] [address] 19473 Nitrites Urine Negative Normal Negative [facility] Comment on above: Order Comment: Pleas e draw at specified interval PRIOR to dose. Do not hold dose to wait for level. Specimens batched twice per day, (M-F) and once per day weekends Method performed is a chemiluminescent microparticle immunoasssay on the [employer] i2000. The range is based on experience at [facility] and users should be aware that target concentrations vary widely depending on concomitant therapy, time post-transplant, and desired degree of immunosuppression. Performed By: #### T ACRO #### [facility] [address] [place] [address] pH (U) 6.0 [pH] Normal 5.0-7.0 [facility] Comment on above: Order Comment: Pleas e draw at specified interval PRIOR to dose. Do not hold dose to wait for level. Specimens batched twice per day, (M-F) and once per day weekends Method performed is a chemiluminescent microparticle immunoasssay on the [employer] i2000. The range is based on experience at [facility] and users should be aware that target concentrations vary widely depending on concomitant therapy, time post-transplant, and desired degree of immunosuppression. Performed By: #### T ACRO #### [facility] (DEFAULT) [address] [place] [address] Protein Urine Negative Normal Negative [facility] Comment on above: Order Comment: Pleas e draw at specified interval PRIOR to dose. Do not hold dose to wait for level. Specimens batched twice per day, (M-F) and once per day weekends Method performed is a chemiluminescent microparticle immunoasssay on the [employer] i2000. The range is based on experience at [facility] and users should be aware that target concentrations vary widely depending on concomitant therapy, time post-transplant, and desired degree of immunosuppression. Performed By: #### T ACRO #### [facility] (DEFAULT) [address] [place] [address] RBC Urine 3-5 Abnormal 0-2 [facility] Comment on above: Order Comment: Pleas e draw at specified interval PRIOR to dose. Do not hold dose to wait for level. Specimens batched twice per day, (M-F) and once per day weekends Method performed is a chemiluminescent microparticle immunoasssay on the [employer] i2000. The range is based on experience at [facility] and users should be aware that target concentrations vary widely depending on concomitant therapy, time post-transplant, and desired degree of immunosuppression. Performed By: #### T ACRO #### [facility] (DEFAULT) [address] [place] [address] Specific Rickreall Urine 1.015 Normal 1.001-1.035 [facility] Comment on above: Order Comment: Pleas e draw at specified interval PRIOR to dose. Do not hold dose to wait for level. Specimens batched twice per day, (M-F) and once per day weekends Method performed is a chemiluminescent microparticle immunoasssay on the [employer] i2000. The range is based on experience at [facility] and users should be aware that target concentrations vary widely depending on concomitant therapy, time post-transplant, and desired degree of immunosuppression. Performed By: #### T ACRO #### [facility] (DEFAULT) [address] [place] [address] Squamous/Epithelial Cells 0-2/hpf Normal 0-2/hpf, 3-5/hpf = 1+ [facility] Comment on above: Order Comment: Pleas e draw at specified interval PRIOR to dose. Do not hold dose to wait for level. Specimens batched twice per day, (M-F) and once per day weekends Method performed is a chemiluminescent microparticle immunoasssay on the [employer] i2000. The range is based on experience at [facility] and users should be aware that target concentrations vary widely depending on concomitant therapy, time post-transplant, and desired degree of immunosuppression. Performed By: #### T ACRO #### [facility] ([facility] [address] [address] Urobilinogen Urine 1.0 E.U./dL Normal 0.2 E.U/d L, 1.0 E.U/dL [facility] Comment on above: Order Comment: Pleas e draw at specified interval PRIOR to dose. Do not hold dose to wait for level. Specimens batched twice per day, (M-F) and once per day weekends Method performed is a chemiluminescent microparticle immunoasssay on the [employer] i2000. The range is based on experience at [facility] and users should be aware that target concentrations vary widely depending on concomitant therapy, time post-transplant, and desired degree of immunosuppression. Performed By: #### T ACRO #### [facility] (DEFAULT) [address] [place] [address] WBC Urine 0 - 5 Normal 0 - 5 [facility] Comment on above: Order Comment: Pleas e draw at specified interval PRIOR to dose. Do not hold dose to wait for level. Specimens batched twice per day, (M-F) and once per day weekends Method performed is a chemiluminescent microparticle immunoasssay on the [employer] i2000. The range is based on experience at [facility] and users should be aware that target concentrations vary widely depending on concomitant therapy, time post-transplant, and desired degree of immunosuppression. Performed By: #### T ACRO #### [facility] (DEFAULT) [address] [address] URINALYSIS REFLEX TO CULTURE PERFORMABLEOrdered By: Shaji Kelly on 08-29-2023 Appearance (U) Clear Clear [facility] Bacteria LM Ql (Urine sed) ABSENT ABSENT [facility] Calcium Oxalate Crystals PRESENT [facility] Color (U) Yellow Yellow [facility] Epithelial cells.squamous LM Ql (Urine sed) 0-2/hpf 0-2/hpf, 3-5/hpf = 1+ [facility] Glucose Test strip (U) [Mass/Vol] Negative Negative [facility] Interpretation and review of laboratory results Abnormal [facility] Ketones (U) [Mass/Vol] Negative Negative [facility] Leukocyte esterase Test strip Ql (U) Negative Negative [facility] Nitrite Ql (U) Negative Negative [facility] pH (U) 6.0 [pH] 5.0 - 7.0 [facility] Protein (U) [Mass/Vol] Negative Negative [facility] RBC (U) [#/Vol] Trace Abnormal Negative [facility] RBC LM.HPF (Urine sed) [#/Area] 3-5 Abnormal [facility] Specific gravity (U) [Rel density] 1.015 1.001 - 1.035 [facility] Urobilinogen (U) [Mass/Vol] 1.0 E.U./dL 0.2 E.U/dL, 1.0 E.U/dL [facility] WBC LM.HPF (Urine sed) [#/Area] 0 - 5 [facility] URINE CULTUREon 08-29-2023 Bacteria identified Cx Nom (U) No Growth Normal [facility] Comment on above: Order Comment: For i ndwelling catheters, specimen collection is acceptable on catheter day 1 and 2 only. Sung top vacutainer. Urine must be to the fill line to process (4mls). If minimum volume, send urine in a yellow top vacutainer tube. Performed By: #### [facility] #### [facility] (DEFAULT) [address] [place] [address] [place] RENAL TRANSPLANT SCANon 0 08-29-2023 US [...] have reviewed and approved this report. Normal [facility] US for transplanted kidney l imitedon 08-29-2023 RADIOLOGY RADIOLOGY [facility] Radiology Study observation (narrative) [facility] US for transplanted kidney l imitedOrdered By: Romana Myers on 08-29-2023 [facility] Work Phone: XR CHEST PORTABLEon 08-29-20 XR CHEST PORTABLE EXAM: XR CHEST PORTABLE, 08/28/2023 21:46 PM CLINICAL INDICATIONS: Fevers, cough RELEVANT CLINICAL HISTORY: COMPARISON: May 17, 2022 FINDINGS: Clear lungs. Prominent heart, unchanged. No pulmonary edema. Normal bones. IMPRESSION: Prominent heart without pulmonary edema. Clear lungs. Normal [facility] BLOOD CULTUREon 08-28-2023 Bacteria identified Cx Nom (Unsp spec) NO GROWTH DAY 5 OF 5 Normal [facility] Comment on above: Order Comment: 2 Bot tles (1 Set - consists of 1 Aerobic bottle and 1 Anaerobic bottle) -1st Peripheral DrawFor syringe method draw:If able to obtain adequate sample (20 ml) inoculate anaerobic bottle firstIf inadequate sample obtained (less than 20 ml) inoculate aerobic bottle firstFor vacutainer method draw: Fill aerobic bottle first, then anaerobic Performed By: #### [facility] #### [facility] (DEFAULT) [address] [place] [address] Bacteria identified Cx Nom (Unsp spec) NO GROWTH DAY 5 OF 5 Normal [facility] Comment on above: Order Comment: 2 Bot tles (1 Set - consists of 1 Aerobic bottle and 1 Anaerobic bottle) -1st Peripheral DrawFor syringe method draw:If able to obtain adequate sample (20 ml) inoculate anaerobic bottle firstIf inadequate sample obtained (less than 20 ml) inoculate aerobic bottle firstFor vacutainer method draw: Fill aerobic bottle first, then anaerobic Performed By: #### [facility] #### [facility] (DEFAULT) [address] [place] [address] DARYL AURIS SCREEN BY PCRo n 08-28-2023 Daryl auris Screen by PCR Not detected Normal Not Detected [facility] Comment on above: Order Comment: This test was performed using a real-time PCR assay. This test was developed, and its performance characteristics determined by [facility] at [facility]. It has not been cleared or approved by the FDA. The laboratory is regulated under CLIA as qualified to perform high-complexity testing. This test is used for clinical purposes. It should not be regarded as investigational or for research. Performed By: #### [facility] #### [facility] (DEFAULT) [address] [address] CBC AND ELECTRONIC DIFFon Abs Baso Auto < Normal 0.00-0.09 [facility] Comment on above: Performed By: #### Vale UNDERWOOD #### [facility] (DEFAULT) [address] [address] Basophils/100 WBC (Bld) 0.6 % Normal [facility] Comment on above: Performed By: #### Vale UNDERWOOD #### [facility] (DEFAULT) [address] [address] DIFF STATUS Electronic Differential Normal [facility] Comment on above: Performed By: #### Vale UNDERWOOD #### [facility] (DEFAULT) [address] [address] Eosinophils (Bld) [#/Vol] 0.10 10*3/uL Normal 0.00-0.48 [facility] Comment on above: Performed By: ###Walter UNDERWOOD #### [facility] (DEFAULT) [address] [address] Eosinophils/100 WBC (Bld) 2.1 % Normal [facility] Comment on above: Performed By: ###Walter UNDERWOOD #### [facility] (DEFAULT) [address] [address] Hematocrit (Bld) [Volume fraction] 37.9 % Low 39.6-48.8 [facility] Comment on above: Performed By: #### Vale UNDERWOOD #### [facility] (DEFAULT) [address] [address] Hemoglobin (Bld) [Mass/Vol] 12.4 g/dL Low 13.4-16.8 [facility] Comment on above: Performed By: #### Vale UNDERWOOD #### [facility] (DEFAULT) [address] [address] Immature Grans % 0.6 % Normal [facility] Comment on above: Performed By: #### Vale UNDERWOOD #### [facility] (DEFAULT) [address] [place] [address] Immature Grans Absolute < Normal <=0.07 [facility] Comment on above: Performed By: #### Vale UNDERWOOD #### [facility] (DEFAULT) [address] [place] [address] Lymphocytes (Bld) [#/Vol] 1.76 10*3/uL Normal 0.83-3.57 [facility] Comment on above: Performed By: #### G YASMINE #### [facility] (DEFAULT) [address] [address] Lymphocytes/100 WBC (Bld) 37.1 % Normal [facility] Comment on above: Performed By: #### Vale UNDERWOOD #### [facility] (DEFAULT) [address] [address] MCV (RBC) [Entitic vol] 85.0 fL Normal 79.0-94.5 [facility] Comment on above: Performed By: #### Vale UNDERWOOD #### [facility] (DEFAULT) [address] [address] Mean Cell Hgb 27.8 pg Normal 26.1-33.3 [facility] Comment on above: Performed By: #### Vale UNDERWOOD #### [facility] (DEFAULT) [address] [address] Mean Cell Hgb Conc 32.7 g/dL Normal 31.9-36.5 [facility] Comment on above: Performed By: #### Vale UNDERWOOD #### [facility] (DEFAULT) [address] [place] [address] Monocytes (Bld) [#/Vol] 0.66 10*3/uL Normal 0.24-0.93 [facility] Comment on above: Performed By: #### Vale UNDERWOOD #### [facility] (DEFAULT) [address] [place] [address] Monocytes/100 WBC (Bld) 13.9 % Normal [facility] Comment on above: Performed By: #### Vale UNDERWOOD #### [facility] (DEFAULT) [address] [address] Nucleated RBC 0.0 /100 WBC Normal <=0.2 [facility] Comment on above: Performed By: #### Vale UNDERWOOD #### [facility] (DEFAULT) [address] [address] Platelet mean volume (Bld) [Entitic vol] 9.3 fL Normal 8.7-12.3 [facility] Comment on above: Performed By: #### Vale UNDERWOOD #### [facility] (DEFAULT) [address] [address] Platelets (Bld) [#/Vol] 262 10*3/uL Normal 146-337 [facility] Comment on above: Performed By: #### Vale UNDERWOOD #### [facility] (DEFAULT) [address] [address] RBC (Bld) [#/Vol] 4.46 10*6/uL Normal 4.38-5.83 [facility] Comment on above: Performed By: ###Walter UNDERWOOD #### [facility] (DEFAULT) [address] [address] RBC Distribution 13.4 % Normal 10.9-14.3 [facility] Comment on above: Performed By: #### Vale UNDERWOOD #### [facility] (DEFAULT) [address] [address] Segs + Bands Auto 45.7 % Normal [facility] Comment on above: Performed By: #### Vale UNDERWOOD #### [facility] (DEFAULT) [address] [address] Segs + Bands,Absolute Auto 2.16 K/uL Normal 1.57-6.19 [facility] Comment on above: Performed By: #### Vale UNDERWOOD #### [facility] (DEFAULT) [address] [place] [address] WBC (Bld) [#/Vol] 4.74 10*3/uL Normal 3.73-10.10 [facility] Comment on above: Performed By: #### G YASMINE #### [facility] (DEFAULT) [address] [place] [address] Basophils (Bld) [#/Vol] K/uL 0.00 - 0.09 K/uL [facility] Basophils/100 WBC (Bld) 0.6 % [facility] Differential cell count method Nom (Bld) Electronic Differential [facility] Eosinophils (Bld) [#/Vol] 0.10 10*3/uL 0.00 - 0.48 K/uL [facility] Eosinophils/100 WBC (Bld) 2.1 % [facility] Erythrocyte distribution width (RBC) [Ratio] 13.4 % 10.9 - 14.3 % [facility] Hematocrit (Bld) [Volume fraction] 37.9 % Low 39.6 - 48.8 % [facility] Hemoglobin (Bld) [Mass/Vol] 12.4 g/dL Low 13.4 - 16.8 g/dL [facility] Immature granulocytes (Bld) [#/Vol] K/uL NINF - 0.07 K/uL [facility] Immature granulocytes/100 WBC (Bld) 0.6 % [facility] Interpretation and review of laboratory results Abnormal [facility] Lymphocytes (Bld) [#/Vol] 1.76 10*3/uL 0.83 - 3.57 K/uL [facility] Lymphocytes/100 WBC (Bld) 37.1 % [facility] MCH (RBC) [Entitic mass] 27.8 pg 26.1 - 33.3 pg [facility] MCHC (RBC) [Mass/Vol] 32.7 g/dL 31.9 - 36.5 g/dL [facility] MCV (RBC) [Entitic vol] 85.0 fL 79.0 - 94.5 fL [facility] Monocytes (Bld) [#/Vol] 0.66 10*3/uL 0.24 - 0.93 K/uL [facility] Monocytes/100 WBC (Bld) 13.9 % [facility] Neutrophils (Bld) [#/Vol] 2.16 10*3/uL 1.57 - 6.19 K/uL [facility] Nucleated RBC/100 WBC (Bld) [Ratio] 0.0 % NINF [facility] Platelet mean volume (Bld) [Entitic vol] 9.3 fL 8.7 - 12.3 fL [facility] Platelets (Bld) [#/Vol] 262 10*3/uL 146 - 337 K/uL [facility] RBC (Bld) [#/Vol] 4.46 10*6/uL [facility] Segmented neutrophils/100 WBC (Bld) 45.7 % [facility] WBC (Bld) [#/Vol] 4.74 10*3/uL 3.73 - 10. 10 K/uL [facility] CHEM 6 (LYTES, BUN CREA)on 0 08-28-2023 Anion gap [Moles/Vol] 13 mmol/L Normal 7-17 [facility] Comment on above: Performed By: #### C HM6 #### [facility] (DEFAULT) [address] [place] [address] Chloride [Moles/Vol] 103 mmol/L Normal 98-108 [facility] Comment on above: Performed By: #### C HM6 #### [facility] (DEFAULT) [address] [place] [address] CO2 [Moles/Vol] 22 mmol/L Normal 21-31 [facility] Comment on above: Performed By: #### C HM6 #### [facility] (DEFAULT) [address] [place] [address] Creatinine [Mass/Vol] 1.62 mg/dL High 0.70-1.30 [facility] Comment on above: Performed By: #### C HM6 #### [facility] (DEFAULT) [address] [place] [address] GFR/1.73 sq M.predicted among non-blacks MDRD (S/P/Bld) [Vol rate/Area] 51 mL/min/{1.73_m2} Low >=60 [facility] Comment on above: Result Comment: Repo rted eGFR is based on the CKD-EPI 2020 equation using creatinine, age, and sex. Performed By: #### C HM6 #### [facility] (DEFAULT) [address] [place] [address] Potassium [Moles/Vol] 4.3 mmol/L Normal 3.5-5.0 [facility] Comment on above: Performed By: #### C HM6 #### [facility] (DEFAULT) [address] [place] [address] Sodium [Moles/Vol] 134 mmol/L Low 135-145 [facility] Comment on above: Performed By: #### C HM6 #### [facility] (DEFAULT) [address] [place] [address] Urea nitrogen [Mass/Vol] 22 mg/dL Normal 7-25 [facility] Comment on above: Performed By: #### C HM6 #### [facility] (DEFAULT) [address] [place] [address] Urea nitrogen/Creatinine [Mass ratio] 14 mg/mg Normal [facility] Comment on above: Performed By: #### C HM6 #### [facility] (DEFAULT) [address] [place] [address] Anion gap [Moles/Vol] 13 mmol/L 7 - 17 mmol/L [facility] Chloride [Moles/Vol] 103 mmol/L 98 - 10 8 mmol/L [facility] CO2 [Moles/Vol] 22 mmol/L 21 - 31 mmol/L [facility] Creatinine [Mass/Vol] 1.62 mg/dL High 0.70 - 1.30 mg/dL [facility] eGFR, CKD-EPI, Male 51 Low - PINF [facility] Interpretation and review of laboratory results Abnormal [facility] Potassium [Moles/Vol] 4.3 mmol/L 3.5 - 5.0 mmol/L [facility] Sodium [Moles/Vol] 134 mmol/L Low 135 - 145 mmol/L [facility] Urea nitrogen [Mass/Vol] 22 mg/dL 7 - 25 mg/dL [facility] Urea nitrogen/Creatinine [Mass ratio] 14 mg/mg [facility]ED RESPIRATOR Y PANELon 08-28-2023 Adenovirus - Pcr Not detected Normal Not Detected [facility] Comment on above: Order Comment: Viral [...] nucleic acid assay. Performed By: #### [facility] #### [facility] (DEFAULT) [address] [address] Bordetella Parapertussis Not detected Normal Not Detected [facility] Comment on above: Order Comment: Viral [...] nucleic acid assay. Performed By: #### [facility] #### [facility] (DEFAULT) [address] [address] Bordetella Pertussis Not detected Normal Not Detected [facility] Comment on above: Order Comment: Viral [...] nucleic acid assay. Performed By: #### [facility] #### [facility] (DEFAULT) [address] [address] Chlamydia Pneumoniae Not detected Normal Not Detected [facility] Comment on above: Order Comment: Viral [...] assay. Performed By: #### H EMO #### [facility] (DEFAULT) [address] [address] Coronavirus 229E Not detected Normal Not Detected [facility] Comment on above: Order Comment: Viral [...] assay. Performed By: #### H EMO #### [facility] (DEFAULT) [address] [address] Coronavirus Hku1 Not detected Normal Not Detected [facility] Comment on above: Order Comment: Viral [...] nucleic acid assay. Performed By: #### [facility] #### [facility] (DEFAULT) [address] [address] Coronavirus Nl63 Not detected Normal Not Detected [facility] Comment on above: Order Comment: Viral [...] Performed By: #### H EMO #### [facility] (DEFAULT) [address] [address] Coronavirus Oc43 Not detected Normal Not Detected [facility] Comment on above: Order Comment: Viral [...] assay. Performed By: #### H EMO #### [facility] (DEFAULT) [address] [address] Influenza A - Pcr Not detected Normal Not Detected [facility] Comment on above: Order Comment: [...] nucleic acid assay. Performed By: #### [facility] #### [facility] (DEFAULT) [address] [place] [address] Influenza B - Pcr Not detected Normal Not Detected [facility] Comment on above: Order Comment: [...] nucleic acid assay. Performed By: #### [facility] #### [facility] (DEFAULT) [address] [place] [address] Metapneumovirus - Pcr Not detected Normal Not Detected [facility] Comment on above: Order Comment: Viral [...] assay. Performed By: #### H EMO #### [facility] [address] [address] Mycoplasma Pneumoniae Not detected Normal Not Detected [facility] Comment on above: Order Comment: Viral [...] assay. Performed By: #### H EMO #### [facility] [address] [address] Parainfluenza 1 - Pcr Not detected Normal Not Detected [facility] Comment on above: Order Comment: Viral [...] #### H EMO #### [facility] (DEFAULT) [address] [address] Parainfluenza 2 - Pcr Not detected Normal Not Detected [facility] Comment on above: Order Comment: Viral [...] assay. Performed By: #### H EMO #### [facility] [address] [address] Parainfluenza 3 - Pcr Not detected Normal Not Detected [facility] Comment on above: Order Comment: Viral [...] nucleic acid assay. Performed By: #### [facility] #### [facility] (DEFAULT) [address] [address] Parainfluenza 4 - Pcr Not detected Normal Not Detected [facility] Comment on above: Order Comment: Viral [...] assay. Performed By: #### H EMO #### [facility] (DEFAULT) [address] [address] Rhinovirus/Enteroviru s - PCR Not detected Normal Not Detected [facility] Comment on above: Order Comment: Viral [...] assay. Performed By: #### H EMO #### [facility] (DEFAULT) [address] [address] Rsv - Pcr Not detected Normal Not Detected [facility] Comment on above: Order Comment: Viral [...] nucleic acid assay. Performed By: #### [facility] #### [facility] (DEFAULT) [address] [place] [address] SARS-CoV-2 (COVID-19) RNA ESTELITA+probe Ql (Unsp spec) Not detected Normal NOT DETECTED [facility] Comment on above: Order Comment: Viral [...] nucleic acid assay. Performed By: #### [facility] #### [facility] (DEFAULT) [address] [place] [id number] Portable XR Chest Viewson Radiology Study observation (narrative) [facility] Respiratory virus DNA+RNA NA A+probe Nom (Unsp spec)Ordered By: Dayami Harris on 08-28-2023 Adenovirus DNA ESTELITA+probe Nom (Unsp spec) Not detected Not Detected [facility] B. parapertussis DNA ESTELITA+probe Ql (Unsp spec) Not detected Not Detected [facility] B. pertussis DNA ESTELITA+probe Ql (Unsp spec) Not detected Not Detected [facility] C. pneumoniae DNA ESTELITA+probe Ql (Unsp spec) Not detected Not Detected [facility] FLUAV RNA ESTELITA+probe Ql (Unsp spec) Not detected Not Detected [facility] FLUBV RNA ESTELITA+probe Ql (Unsp spec) Not detected [facility] HCoV 229E RNA ESTELITA+non-probe Ql (Nph) Not detected Not Detected [facility] HCoV HKU1 RNA ESTELITA+non-probe Ql (Nph) Not detected Not Detected [facility] HCoV NL63 RNA ESTELITA+non-probe Ql (Nph) Not detected Not Detected [facility] HCoV OC43 RNA ESTELITA+non-probe Ql (Nph) Not detected Not Detected [facility] hMPV A RNA ESTELITA+probe Ql (Unsp spec) Not detected Not Detected [facility] Interpretation and review of laboratory results Normal [facility] M. pneumoniae DNA ESTELITA+probe Ql (Unsp spec) Not detected [facility] Parainfluenza virus 1 RNA ESTELITA+probe Ql (Unsp spec) Not detected Not Detected [facility] Parainfluenza virus 2 RNA ESTELITA+probe Ql (Unsp spec) Not detected Not Detected [facility] Parainfluenza virus 3 RNA ESTELITA+probe Ql (Unsp spec) Not detected Not Detected [facility] Parainfluenza virus 4 RNA ESTELITA+probe Ql (Unsp spec) Not detected Not Detected [facility] Rhinovirus+Enteroviru s RNA ESTELITA+probe Ql (Unsp spec) Not detected Not Detected [facility] RSV RNA ESTELITA+probe Ql (Unsp spec) Not detected Not Detected [facility] SARS-CoV-2 (COVID-19) RNA ESTELITA+probe Ql (Unsp spec) Not detected NOT [facility]ED [facility] ALB[facility] 04-28-2023 Albumin [Mass/Vol] 4.0 g/dL Normal 3.4-5.0 [facility] Comment on above: Performed By: #### C MP #### [facility] [address] [place] [address] Dr. Dwight Waters ALKALINE PHOSPHAon 05-30-202 3 ALP [Catalytic activity/Vol] 106 U/L Normal 46-116 [facility] Comment on above: Performed By: #### F [id number] #### [facility] [address] [place] [address] Dr. Dwight Waters BILIRUBIN CONJUGATED (DIRECT )on 04-28-2023 BILI, CONJUGATED 0.3 mg/dL Critically high 0.0-0.2 [facility] Comment on above: Performed By: #### C MP #### [facility] [address] [place] [address] Dr. Dwight Waters BILIRUBIN TOTALon 04-28-2023 Bilirubin [Mass/Vol] 1.4 mg/dL Critically high 0.2-1.0 [facility] Comment on above: Performed By: #### C MP #### [facility] [address] [place] [address] Dr. Dwight Waters BUNon 04-28-2023 Urea nitrogen [Mass/Vol] 12.0 mg/dL Normal 7.0-18.0 [facility] Comment on above: Performed By: #### U RTPCR #### [facility] [address] [place] [address] Dr. Dwight Waters CALCIUMon 04-28-2023 Calcium [Mass/Vol] 9.3 mg/dL Normal 8.5-10.1 [facility] Comment on above: Performed By: #### U RTPCR #### [facility] [address] [place] [address] Dr. Dwight Waters CBC AUTO DIFFon 04-28-2023 BASO # 0.1 103/ul Normal 0.0-0.1 [facility] Comment on above: Performed By: #### C BC #### [facility] [address] [place] [address] Dr. Dwight Waters Basophils/100 WBC (Bld) 0.9 % Normal 0.2-2.0 [facility] Comment on above: Performed By: #### C BC #### [facility] [address] [place] [address] Dr. Dwight Waters EO # 0.2 103/ul Normal 0.0-0.7 [facility] Comment on above: Performed By: #### C BC #### [facility] [address] [place] [address] Dr. Dwight Waters Eosinophils/100 WBC (Bld) 3.8 % Normal 0.9-7.0 [facility] Comment on above: Performed By: #### C BC #### [facility] [address] [place] [address] Dr. Dwight Waters Erythrocyte distribution width (RBC) [Ratio] 12.5 % Normal 11.0-15.0 [facility] Comment on above: Performed By: #### C BC #### [facility] [address] [place] [address] Dr. Dwight Waters Hematocrit (Bld) [Volume fraction] 49.8 % Normal 42.0-54.0 [facility] Comment on above: Performed By: #### C BC #### [facility] [address] [place] [address] Dr. Dwight Waters Hemoglobin (Bld) [Mass/Vol] 16.4 g/dL Normal 14.0-18.0 [facility] Comment on above: Performed By: #### C BC #### [facility] [address] [place] [address] Dr. Dwight Waters IG # 0.01 10e3/ul Normal 0.00-0.03 [facility] Comment on above: Performed By: #### C BC #### [facility] [address] [place] [address] Dr. Dwight Waters IG % 0.2 % Normal 0.0-0.[address] [facility] Comment on above: Performed By: #### C BC #### [facility] [address] [place] [address] Dr. Dwight Waters LYMPH # 2.1 103/ul Normal 1.2-3.[address] [facility] Comment on above: Performed By: #### C BC #### [facility] [address] [place] [address] Dr. Dwight Waters Lymphocytes/100 WBC (Bld) 39.1 % Normal 20.5-60.0 [facility] Comment on above: Performed By: #### C BC #### [facility] [address] [place] [address] Dr. Dwight Waters MANUAL DIFF REQ NO Normal [facility] Comment on above: Performed By: #### C BC #### [facility] [address] [place] [address] Dr. Dwight Wtaers MCH (RBC) [Entitic mass] 28.6 pg Normal 25.9-34.0 [facility] Comment on above: Performed By: #### C BC #### [facility] [address] [place] [address] Dr. Dwight Waters MCHC (RBC) [Mass/Vol] 32.9 g/dL Normal 29.9-35.2 [facility] Comment on above: Performed By: #### C BC #### [facility] [address] [place] [address] Dr. Dwight Waters MCV (RBC) [Entitic vol] 86.9 fL Normal 80.0-94.0 [facility] Comment on above: Performed By: #### C BC #### [facility] [address] [place] [address] Dr. Dwight Waters MONO # 0.6 103/ul Normal 0.3-0.8 [facility] Comment on above: Performed By: #### C BC #### [facility] [address] [place] [address] Dr. Dwight Waters Monocytes/100 WBC (Bld) 10.6 % Normal 1.7-12.0 [facility] Comment on above: Performed By: #### C BC #### [facility] [address] [place] [address] Dr. Dwight Waters NEUT # 2.5 103/ul Normal 1.4-6.[address] [facility] Comment on above: Performed By: #### C BC #### [facility] [address] [place] [address] Dr. Dwight Waters Neutrophils/100 WBC (Bld) 45.4 % Normal 43.0-75.[address] [facility] Comment on above: Performed By: #### C BC #### [facility] [address] [place] [address] Dr. Dwight Waters Platelet mean volume (Bld) [Entitic vol] 9.3 fL Critically low 9.5-13.5 [facility] Comment on above: Performed By: #### C BC #### [facility] [address] [place] [address] Dr. Dwight Waters PLT 248 103/ul Normal 150-[address] [facility] Comment on above: Performed By: #### C BC #### [facility] [address] [place] [address] Dr. Dwight Waters RBC 5.73 106/ul Normal 4.70-6.[address] [facility] Comment on above: Performed By: #### C BC #### [facility] [address] [place] [address] Dr. Dwight Waters WBC 5.5 103/ul Normal 4.0-11.[address] [facility] Comment on above: Performed By: #### C BC #### [facility] [address] [place] [address] Dr. Dwight Waters CHLORIDEon 04-28-2023 Chloride [Moles/Vol] 107 mmol/L Normal 98-[address] [facility] Comment on above: Performed By: #### U RTPCR #### [facility] [address] [place] [address] Dr. Dwight Waters CO2on 04-28-2023 CO2 [Moles/Vol] 28.9 mmol/L Normal 21.0-32.0 [facility] Comment on above: Performed By: #### U RTPCR #### [facility] [address] [place] [address] Dr. Dwight Waters CREATININEon 04-28-2023 Creatinine [Mass/Vol] 1.17 mg/dL Normal 0.70-1.[address] [facility] Comment on above: Performed By: #### U RTPCR #### [facility] [address] [place] [address] Dr. Dwight Waters EGFR-AF RWANDAN >60 Normal >=60 [facility] Comment on above: Performed By: #### U RTPCR #### [facility] [address] [place] [address] Dr. Dwight Waters EGFR-NON AF RWANDAN >60 Normal >=60 [facility] Comment on above: Performed By: #### U RTPCR #### [facility] [address] [place] [address] Dr. Dwight Waters GGTon 04-28-2023 Gamma glutamyl transferase [Catalytic activity/Vol] 27 U/L Normal 15-85 [facility] Comment on above: Performed By: #### U RTPCR #### [facility] [address] [place] [address] Dr. Dwight Waters GLUCOSE BLOODon 04-28-2023 Glucose [Mass/Vol] 110 mg/dL Critically high 74-106 [facility] Comment on above: Performed By: #### U RTPCR #### [facility] [address] [place] [address] Dr. Dwight Waters MAGNESIUMon 04-28-2023 Magnesium [Mass/Vol] 1.7 mg/dL Critically low 1.8-2.4 [facility] Comment on above: Performed By: #### U RTPCR #### [facility] [address] [place] [address] Dr. Dwight Waters NAon 04-28-2023 Sodium [Moles/Vol] 144 mmol/L Normal 136-145 [facility] Comment on above: Performed By: #### U RTPCR #### [facility] [address] [place] [address] Dr. Dwight Waters PHOSPHORUSon 04-28-2023 Phosphate [Mass/Vol] 3.2 mg/dL Normal 2.6-4.7 [facility] Comment on above: Performed By: #### U RTPCR #### [facility] [address] [place] [address] Dr. Dwight Waters POTASSIUMon 04-28-2023 Potassium [Moles/Vol] 4.0 mmol/L Normal 3.5-5.1 [facility] Comment on above: Performed By: #### U RTPCR #### [facility] [address] [place] [address] Dr. Dwight Waters SGOTon 04-28-2023 AST [Catalytic activity/Vol] 25 U/L Normal 15-37 [facility] Comment on above: Performed By: #### C MP #### [facility] [address] [place] [address] Dr. Dwight Waters SGPTon 04-28-2023 ALT [Catalytic activity/Vol] 40 U/L Normal 16-63 [facility] Comment on above: Performed By: #### C MP #### [facility] [address] [place] [address] Dr. Dwight Waters URINE T PROTEIN CREAT RATIOo n 04-28-2023 Protein (U) [Mass/Vol] 10.1 mg/dL Normal <=12.0 [facility] Comment on above: Performed By: #### U RTPCR #### [facility] [address] [place] [address] Dr. Dwight Waters UR PROT CREAT RAT 0.14 Normal [facility] Comment on above: Performed By: #### U RTPCR #### [facility] [address] [place] [address] Dr. Dwight Waters URINE CREAT 74.40 mg/dL Normal 20.00-300.00 [facility] Comment on above: Performed By: #### U RTPCR #### [facility] [address] [place] [address] Dr. Dwight Waters Office Visiton 04-13-2023 Follow-up visit [id number] George Styles 1970 M Date Provider Department Center 04/13/2023 MIGUEL PARADA [facility] Family History Problem Relation Age of Onset Coronary artery disease Mother Coronary artery disease Father Family Status - Relation Status Age at Mother Father Level of Service:65945 HI OFFICE/OUTPATIENT ESTABLISHED LOW MDM 20-29 MIN Reason for Visit and Comments: Hypertension [409796] Hyperlipidemia [182] Normal [facility] BK VIRUS PCR QUANTon 023 BKV DNA QUANT PCR PLASMA Negative Normal Negative [facility] Comment on above: Result Comment: No B K DNA detected. . The linear range of the assay is 22 - 100,000,000 IU/mL. Performed By: #### B KVIRUS #### [facility] [address] [place] [address] Dr. Dwight Waters Log10 BKV DNA Plasma Normal [facility] Comment on above: Performed By: #### B KVIRUS #### [facility] [address] [place] [address] Dr. Dwight Waters FK506 (TACROLIMUS) WHOLE BLO ODon 03-04-2023 Tacrolimus (FK506), Blood 5.9 ng/mL Normal 2.0-20.0 [facility] Comment on above: Result Comment: Trou gh (immediately following transplant) 15.0 . Trough (steady state, 2 weeks or more after transplant): 3.0 - 8.0 . Performed by LC-MS/MS technology. Performed By: #### C MP #### [facility] [address] [place] [address] Dr. Dwight Waters ALBUMINon 03-02-2023 Albumin [Mass/Vol] 3.9 g/dL Normal 3.4-5.0 [facility] Comment on above: Performed By: #### U RTPCR #### [facility] [address] [place] [address] Dr. Dwight Waters ALKALINE PHOSPHAon ALP [Catalytic activity/Vol] 105 U/L Normal 46-116 [facility] Comment on above: Performed By: #### U RTPCR #### [facility] [address] [place] [address] Dr. Dwight Waters BILIRUBIN CONJUGATED (DIRECT )on 03-02-2023 BILI, CONJUGATED 0.2 mg/dL Normal 0.0-0.2 [facility] Comment on above: Performed By: #### U RTPCR #### [facility] [address] [place] [address] Dr. Dwight Waters BILIRUBIN TOTALon 03-02-2023 Bilirubin [Mass/Vol] 0.9 mg/dL Normal 0.2-1.0 [facility] Comment on above: Performed By: #### U RTPCR #### [facility] [address] [place] [address] Dr. Dwight Waters CBC AUTO DIFFon 03-02-2023 BASO # 0.1 103/ul Normal 0.0-0.1 [facility] Comment on above: Performed By: #### C BC #### [facility] [address] [place] [address] Dr. Dwight Waters Basophils/100 WBC (Bld) 0.9 % Normal 0.2-2.[address] [facility] Comment on above: Performed By: #### C BC #### [facility] [address] [place] [address] Dr. Dwight Waters EO # 0.2 103/ul Normal 0.0-0.[address] [facility] Comment on above: Performed By: #### C BC #### [facility] [address] [place] [address] Dr. Dwight Waters Eosinophils/100 WBC (Bld) 3.5 % Normal 0.9-7.[address] [facility] Comment on above: Performed By: #### C BC #### [facility] [address] [place] [address] Dr. Dwight Waters Erythrocyte distribution width (RBC) [Ratio] 12.7 % Normal 11.0-15.0 [facility] Comment on above: Performed By: #### C BC #### [facility] [address] [place] [address] Dr. Dwight Waters Hematocrit (Bld) [Volume fraction] 48.2 % Normal 42.0-54.0 [facility] Comment on above: Performed By: #### C BC #### [facility] [address] [place] [address] Dr. Dwight Waters Hemoglobin (Bld) [Mass/Vol] 15.9 g/dL Normal 14.0-18.[address] [facility] Comment on above: Performed By: #### C BC #### [facility] [address] [place] [address] Dr. Dwight Waters IG # 0.01 10e3/ul Normal 0.00-0.[address] [facility] Comment on above: Performed By: #### C BC #### [facility] [address] [place] [address] Dr. Dwight Waters IG % 0.2 % Normal 0.0-0.5 [facility] Comment on above: Performed By: #### C BC #### [facility] [address] [place] [address] Dr. Dwight Waters LYMPH # 2.1 103/ul Normal 1.2-3.8 [facility] Comment on above: Performed By: #### C BC #### [facility] [address] [place] [address] Dr. Dwight Waters Lymphocytes/100 WBC (Bld) 37.4 % Normal 20.5-60.0 [facility] Comment on above: Performed By: #### C BC #### [facility] [address] [place] [address] Dr. Dwight Waters MANUAL DIFF REQ NO Normal [facility] Comment on above: Performed By: #### C BC #### [facility] [address] [place] [address] Dr. Dwight Waters MCH (RBC) [Entitic mass] 28.3 pg Normal 25.9-34.0 [facility] Comment on above: Performed By: #### C BC #### [facility] [address] [place] [address] Dr. Dwight Waters MCHC (RBC) [Mass/Vol] 33.0 g/dL Normal 29.9-35.[address] [facility] Comment on above: Performed By: #### C BC #### [facility] [address] [place] [address] Dr. Dwight Waters MCV (RBC) [Entitic vol] 85.8 fL Normal 80.0-94.[address] [facility] Comment on above: Performed By: #### C BC #### [facility] [address] [place] [address] Dr. Dwight Waters MONO # 0.6 103/ul Normal 0.3-0.8 [facility] Comment on above: Performed By: #### C BC #### [facility] [address] [place] [address] Dr. Dwight Waters Monocytes/100 WBC (Bld) 10.2 % Normal 1.7-12.[address] [facility] Comment on above: Performed By: #### C BC #### [facility] [address] [place] [address] Dr. Dwight Waters NEUT # 2.7 103/ul Normal 1.4-6.5 [facility] Comment on above: Performed By: #### C BC #### [facility] [address] [place] [address] Dr. Dwight Waters Neutrophils/100 WBC (Bld) 47.8 % Normal 43.0-75.0 [facility] Comment on above: Performed By: #### C BC #### [facility] [address] [place] [address] Dr. Dwight Waters Platelet mean volume (Bld) [Entitic vol] 9.3 fL Critically low 9.5-13.[address] [facility] Comment on above: Performed By: #### C BC #### [facility] [address] [place] [address] Dr. Dwight Waters PLT 241 103/ul Normal 150-[address] [facility] Comment on above: Performed By: #### C BC #### [facility] [address] [place] [address] Dr. Dwight Waters RBC 5.62 106/ul Normal 4.70-6.[address] [facility] Comment on above: Performed By: #### C BC #### [facility] [address] [place] [address] Dr. Dwight Waters WBC 5.7 103/ul Normal 4.0-11.[address] [facility] Comment on above: Performed By: #### C BC #### [facility] [address] [place] [address] Dr. Dwight Waters GGTon 03-02-2023 Gamma glutamyl transferase [Catalytic activity/Vol] 25 U/L Normal 15-[address] [facility] Comment on above: Performed By: #### U RTPCR #### [facility] [address] [place] [address] Dr. Dwight Waters MAGNESIUMon 03-02-2023 Magnesium [Mass/Vol] 1.6 mg/dL Critically low 1.8-2.4 [facility] Comment on above: Performed By: #### U RTPCR #### [facility] [address] [place] [address] Dr. Dwight Waters PHOSPHORUSon 03-02-2023 Phosphate [Mass/Vol] 3.6 mg/dL Normal 2.6-4.7 [facility] Comment on above: Performed By: #### U RTPCR #### [facility] [address] [place] [address] Dr. Dwight Waters PROF CHEM 8 (BAS METB)on Anion gap [Moles/Vol] 9.4 mmol/L Normal [facility] Comment on above: Performed By: #### U RTPCR #### [facility] [address] [place] [address] Dr. Dwight Waters Calcium [Mass/Vol] 9.3 mg/dL Normal 8.5-10.1 [facility] Comment on above: Performed By: #### U RTPCR #### [facility] [address] [place] [address] Dr. Dwight Waters Chloride [Moles/Vol] 108 mmol/L Critically high 98-107 [facility] Comment on above: Performed By: #### U RTPCR #### [facility] [address] [place] [address] Dr. Dwight Waters CO2 [Moles/Vol] 27.2 mmol/L Normal 21.0-32.0 [facility] Comment on above: Performed By: #### U RTPCR #### [facility] [address] [place] [address] Dr. Dwight Waters Creatinine [Mass/Vol] 1.12 mg/dL Normal 0.70-1.30 [facility] Comment on above: Performed By: #### U RTPCR #### [facility] [address] [place] [address] Dr. Dwight Waters EGFR-AF RWANDAN >60 Normal >=60 [facility] Comment on above: Performed By: #### U RTPCR #### [facility] [address] [place] [address] Dr. Dwight Waters EGFR-NON AF RWANDAN >60 Normal >=60 [facility] Comment on above: Performed By: #### U RTPCR #### [facility] [address] [place] [address] Dr. Dwight Waters Glucose [Mass/Vol] 113 mg/dL Critically high 74-106 [facility] Comment on above: Performed By: #### U RTPCR #### [facility] [address] [address] [address] Dwight Waters Potassium [Moles/Vol] 3.6 mmol/L Normal 3.5-5.1 [facility] Comment on above: Performed By: #### U RTPCR #### [facility] [address] [place] [address] Dr. Dwight Waters Sodium [Moles/Vol] 141 mmol/L Normal 136-145 [facility] Comment on above: Performed By: #### U RTPCR #### [facility] [address] [place] [address] Dr. Dwight Waters Urea nitrogen [Mass/Vol] 14.0 mg/dL Normal 7.0-18.0 [facility] Comment on above: Performed By: #### U RTPCR #### [facility] [address] [place] [address] Dr. Dwight Waters Urea nitrogen/Creatinine [Mass ratio] 12.5 mg/mg Normal [facility] Comment on above: Performed By: #### U RTPCR #### [facility] [address] [place] [address] Dr. Dwight Waters SGOTon 03-02-2023 AST [Catalytic activity/Vol] 20 U/L Normal 15-37 [facility] Comment on above: Performed By: #### U RTPCR #### [facility] [address] [place] [address] Dr. Dwight Waters SGPTon 03-02-2023 ALT [Catalytic activity/Vol] 30 U/L Normal 16-63 [facility] Comment on above: Performed By: #### U RTPCR #### [facility] [address] [place] [address] Dr. Dwight Waters URINE T PROTEIN CREAT RATIOo n 03-02-2023 Protein (U) [Mass/Vol] 10.3 mg/dL Normal <=12.0 [facility] Comment on above: Performed By: #### U RTPCR #### [facility] [address] [place] [address] Dr. Dwight Waters UR PROT CREAT RAT 0.15 Normal [facility] Comment on above: Performed By: #### U RTPCR #### [facility] [address] [place] [address] Dr. Dwight Waters URINE CREAT 68.96 mg/dL Normal 20.00-300.00 [facility] Comment on above: Performed By: #### U RTPCR #### [facility] [address] [place] [address] Dr. Dwight Waters BK VIRUS PCR QUANTon 023 BKV DNA QUANT PCR PLASMA Negative Normal Negative [facility] Comment on above: Result Comment: No B K DNA detected. . The linear range of the assay is 22 - 100,000,000 IU/mL. Performed By: #### C MP #### [facility] [address] [place] [address] Dr. Dwight Waters Log10 BKV DNA Plasma Normal [facility] Comment on above: Performed By: #### C MP #### [facility] [address] [place] [address] Dr. Dwight Waters FK506 (TACROLIMUS) WHOLE BLO ODon 12-31-2022 Tacrolimus (FK506), Blood 5.6 ng/mL Normal 2.0-20.0 [facility] Comment on above: Result Comment: Trou gh (immediately following transplant) 15.0 . Trough (steady state, 2 weeks or more after transplant): 3.0 - 8.0 . Performed by LC-MS/MS technology. Performed By: #### C MP #### [facility] [address] [place] [address] Dr. Dwight Waters ALKALINE PHOSPHAon ALP [Catalytic activity/Vol] 96 U/L Normal 46-116 [facility] Comment on above: Performed By: #### C BC #### [facility] [address] [place] [address] Dr. Dwight Waters BILIRUBIN CONJUGATED (DIRECT )on 12-29-2022 BILI, CONJUGATED 0.3 mg/dL Critically high 0.0-0.2 [facility] Comment on above: Performed By: #### C BC #### [facility] [address] [place] [address] Dr. Dwihgt Waters BILIRUBIN TOTALon 12-29-2022 Bilirubin [Mass/Vol] 1.1 mg/dL Critically high 0.2-1.0 [facility] Comment on above: Performed By: #### C BC #### [facility] [address] [place] [address] Dr. Dwight Waters CBC AUTO DIFFon 12-29-2022 BASO # 0.1 103/ul Normal 0.0-0.1 [facility] Comment on above: Performed By: #### C MP #### [facility] [address] [place] [address] Dr. Dwight Waters Basophils/100 WBC (Bld) 0.8 % Normal 0.2-2.0 [facility] Comment on above: Performed By: #### C MP #### [facility] [address] [place] [address] Dr. Dwight Waters EO # 0.2 103/ul Normal 0.0-0.7 [facility] Comment on above: Performed By: #### C MP #### [facility] [address] [place] [address] Dr. Dwight Waters Eosinophils/100 WBC (Bld) 3.0 % Normal 0.9-7.[address] [facility] Comment on above: Performed By: #### C MP #### [facility] [address] [place] [address] Dr. Dwight Waters Erythrocyte distribution width (RBC) [Ratio] 12.9 % Normal 11.0-15.0 [facility] Comment on above: Performed By: #### C MP #### [facility] [address] [place] [address] Dr. Dwight Waters Hematocrit (Bld) [Volume fraction] 46.9 % Normal 42.0-54.0 [facility] Comment on above: Performed By: #### C MP #### [facility] [address] [place] [address] Dr. Dwight Watres Hemoglobin (Bld) [Mass/Vol] 16.1 g/dL Normal 14.0-18.0 [facility] Comment on above: Performed By: #### C MP #### [facility] [address] [place] [address] Dr. Dwight Waters IG # 0.01 10e3/ul Normal 0.00-0.03 [facility] Comment on above: Performed By: #### C MP #### [facility] [address] [place] [address] Dr. Dwight Waters IG % 0.2 % Normal 0.0-0.5 [facility] Comment on above: Performed By: #### C MP #### [facility] [address] [place] [address] Dr. Dwight Waters LYMPH # 1.8 103/ul Normal 1.2-3.8 [facility] Comment on above: Performed By: #### C MP #### [facility] [address] [place] [address] Dr. Dwight Waters Lymphocytes/100 WBC (Bld) 27.9 % Normal 20.5-60.0 [facility] Comment on above: Performed By: #### C MP #### [facility] [address] [place] [address] Dr. Dwight Waters MANUAL DIFF REQ NO Normal [facility] Comment on above: Performed By: #### C MP #### [facility] [address] [place] [address] Dr. Dwight Waters MCH (RBC) [Entitic mass] 28.5 pg Normal 25.9-34.0 [facility] Comment on above: Performed By: #### C MP #### [facility] [address] [place] [address] Dr. Dwight Waters MCHC (RBC) [Mass/Vol] 34.3 g/dL Normal 29.9-35.2 [facility] Comment on above: Performed By: #### C MP #### [facility] [address] [place] [address] Dr. Dwight Waters MCV (RBC) [Entitic vol] 83.2 fL Normal 80.0-94.0 [facility] Comment on above: Performed By: #### C MP #### [facility] [address] [place] [address] Dr. Dwight Waters MONO # 0.5 103/ul Normal 0.3-0.8 [facility] Comment on above: Performed By: #### C MP #### [facility] [address] [place] [address] Dr. Dwight Waters Monocytes/100 WBC (Bld) 8.1 % Normal 1.7-12.0 [facility] Comment on above: Performed By: #### C MP #### [facility] [address] [place] [address] Dr. Dwight Waters NEUT # 3.8 103/ul Normal 1.4-6.5 [facility] Comment on above: Performed By: #### C MP #### [facility] [address] [place] [address] Dr. Dwight Waters Neutrophils/100 WBC (Bld) 60.0 % Normal 43.0-75.0 [facility] Comment on above: Performed By: #### C MP #### [facility] [address] [place] [address] Dr. Dwight Waters Platelet mean volume (Bld) [Entitic vol] 9.2 fL Critically low 9.5-13.5 [facility] Comment on above: Performed By: #### C MP #### [facility] [address] [place] [address] Dr. Dwight Waters PLT 225 103/ul Normal 150-[address] [facility] Comment on above: Performed By: #### C MP #### [facility] [address] [place] [address] Dr. Dwight Waters RBC 5.64 106/ul Normal 4.70-6.[address] [facility] Comment on above: Performed By: #### C MP #### [facility] [address] [address] [address] Dwight Waters WBC 6.3 103/ul Normal 4.0-11.0 [facility] Comment on above: Performed By: #### C MP #### [facility] [address] [address] [address] Dwight Waters GGTon 12-29-2022 Gamma glutamyl transferase [Catalytic activity/Vol] 24 U/L Normal 15-85 [facility] Comment on above: Performed By: #### C MP #### [facility] [address] [address] [address] Dwight Waters LIPID PROFILEon 12-29-2022 CHOL-HDL RATIO NORM SEE BELOW Normal [facility] Comment on above: Result Comment: 3.3 - 4.4 LOW RISK 4.4 - 7.1 AVERAGE RISK 7.1 - 11.0 MODERATE RISK >11.0 HIGH RISK Performed By: #### U RTPCR #### [facility] [address] [place] [address] Dr. Dwight Waters Cholesterol [Mass/Vol] 87 mg/dL Normal <=200 [facility] Comment on above: Performed By: #### U RTPCR #### [facility] [address] [place] [address] Dr. Dwight Waters Cholesterol in HDL [Mass/Vol] 44 mg/dL Normal 40-60 [facility] Comment on above: Performed By: #### U RTPCR #### [facility] [address] [address] [address] Dwight Waters Cholesterol in LDL [Mass/Vol] 33.0 mg/dL Normal [facility] Comment on above: Performed By: #### U RTPCR #### [facility] [address] [address] [address] Dwight Waters Cholesterol.total/Cho lesterol in HDL [Mass ratio] 2.0 {ratio} Normal [facility] Comment on above: Performed By: #### U RTPCR #### [facility] [address] [address] [address] Dwight Waters HDL NORMAL > or = 60 mg/dl - LO W CARDIOVASCULAR RISK <40 mg/dl - HIGH CARDIOVASCULAR RISK Normal [facility] Comment on above: Performed By: #### U RTPCR #### [facility] [address] [address] [address] Dwight Waters LDL CALC NORMAL SEE BELOW Normal [facility] Comment on above: Result Comment: <100 mg/dl OPTIMAL 100 - 129 mg/dl NEAR OR ABOVE OPTIMAL 130 - 159 mg/dl BORDERLINE HIGH 160 - 189 mg/dl HIGH >190 mg/dl VERY HIGH Performed By: #### U RTPCR #### [facility] [address] [address] [address] Dwight Waters Triglyceride [Mass/Vol] 50 mg/dL Normal <=150 [facility] Comment on above: Performed By: #### U RTPCR #### [facility] [address] [address] [address] Dwight Waters VLDL CALC 10.0 mg/dL Normal [facility] Comment on above: Performed By: #### U RTPCR #### [facility] [address] [address] [address] Dwight Waters MAGNESIUMon 12-29-2022 Magnesium [Mass/Vol] 1.6 mg/dL Critically low 1.8-2.4 [facility] Comment on above: Performed By: #### C BC #### [facility] [address] [address] [address] Dwight Waters RENAL FUNCTION PANELon 12-29 Albumin [Mass/Vol] 3.9 g/dL Normal 3.4-5.0 [facility] Comment on above: Performed By: #### C BC #### [facility] [address] [address] [address] Dwight Waters Calcium [Mass/Vol] 9.2 mg/dL Normal 8.5-10.1 [facility] Comment on above: Performed By: #### C BC #### [facility] [address] [address] [address] Dwight Waters Chloride [Moles/Vol] 109 mmol/L Critically high 98-107 [facility] Comment on above: Performed By: #### C BC #### [facility] [address] [address] [address] Dwight Waters CO2 [Moles/Vol] 27.0 mmol/L Normal 21.0-32.0 [facility] Comment on above: Performed By: #### C BC #### [facility] [address] [address] [address] Dwight Waters Creatinine [Mass/Vol] 1.02 mg/dL Normal 0.70-1.30 [facility] Comment on above: Performed By: #### C BC #### [facility] [address] [address] [address] Dwight Waters EGFR-AF RWANDAN >60 Normal >=60 [facility] Comment on above: Performed By: #### C BC #### [facility] [address] [place] [address] Dr. Dwight Waters EGFR-NON AF RWANDAN >60 Normal >=60 [facility] Comment on above: Performed By: #### C BC #### [facility] [address] [address] [address] Dwight Waters Glucose [Mass/Vol] 117 mg/dL Critically high 74-106 [facility] Comment on above: Performed By: #### C BC #### [facility] [address] [address] [address] Dwight Waters Phosphate [Mass/Vol] 3.2 mg/dL Normal 2.6-4.7 [facility] Comment on above: Performed By: #### C BC #### [facility] [address] [address] [address] Dwight Waters Potassium [Moles/Vol] 4.1 mmol/L Normal 3.5-5.1 [facility] Comment on above: Performed By: #### C BC #### [facility] [address] [address] [address] Dwight Waters Sodium [Moles/Vol] 144 mmol/L Normal 136-145 [facility] Comment on above: Performed By: #### C BC #### [facility] [address] [place] [address] Dr. Dwight Waters Urea nitrogen [Mass/Vol] 13.0 mg/dL Normal 7.0-18.0 [facility] Comment on above: Performed By: #### C BC #### [facility] [address] [place] [address] Dr. Dwight Waters SGOTon 12-29-2022 AST [Catalytic activity/Vol] 21 U/L Normal 15-37 [facility] Comment on above: Performed By: #### C BC #### [facility] [address] [place] [address] Dr. Dwight Waters SGPTon 12-29-2022 ALT [Catalytic activity/Vol] 32 U/L Normal 16-63 [facility] Comment on above: Performed By: #### C BC #### [facility] [address] [place] [address] Dr. Dwight Waters URINE T PROTEIN CREAT RATIOo n 12-29-2022 Protein (U) [Mass/Vol] 14.3 mg/dL Critically high <=12.0 [facility] Comment on above: Performed By: #### U RTPCR #### [facility] [address] [place] [address] Dr. Dwight Waters UR PROT CREAT RAT 0.17 Normal [facility] Comment on above: Performed By: #### U RTPCR #### [facility] [address] [place] [address] Dr. Dwight Waters URINE CREAT 86.58 mg/dL Normal 20.00-300.00 [facility] Comment on above: Performed By: #### U RTPCR #### [facility] [address] [place] [address] Dr. Dwight Waters FK506 (TACROLIMUS) WHOLE BLO ODon 11-06-2022 Tacrolimus (FK506), Blood 4.9 ng/mL Normal 2.0-20.0 [facility] Comment on above: Result Comment: Trou gh (immediately following transplant) 15.0 . Trough (steady state, 2 weeks or more after transplant): 3.0 - 8.0 . Performed by LC-MS/MS technology. Performed By: #### U RTPCR #### [facility] [address] [place] [address] Dr. Dwight Waters ALKALINE PHOSPHAon ALP [Catalytic activity/Vol] 86 U/L Normal 46-116 [facility] Comment on above: Performed By: #### U RTPCR #### [facility] [address] [place] [address] Dr. Dwight Waters BILIRUBIN CONJUGATED (DIRECT )on 11-04-2022 BILI, CONJUGATED 0.2 mg/dL Normal 0.0-0.2 [facility] Comment on above: Performed By: #### U RTPCR #### [facility] [address] [place] [address] Dr. Dwight Waters BILIRUBIN TOTALon 11-04-2022 Bilirubin [Mass/Vol] 0.8 mg/dL Normal 0.2-1.0 [facility] Comment on above: Performed By: #### U RTPCR #### [facility] [address] [place] [address] Dr. Dwight Waters CBC AUTO DIFFon 11-04-2022 BASO # 0.1 103/ul Normal 0.0-0.1 [facility] Comment on above: Performed By: #### U RTPCR #### [facility] [address] [place] [address] Dr. Dwight Waters Basophils/100 WBC (Bld) 0.9 % Normal 0.2-2.[address] [facility] Comment on above: Performed By: #### U RTPCR #### [facility] [address] [place] [address] Dr. Dwight Waters EO # 0.2 103/ul Normal 0.0-0.[address] [facility] Comment on above: Performed By: #### U RTPCR #### [facility] [address] [place] [address] Dr. Dwight Waters Eosinophils/100 WBC (Bld) 3.7 % Normal 0.9-7.[address] [facility] Comment on above: Performed By: #### U RTPCR #### [facility] [address] [place] [address] Dr. Dwight Waters Erythrocyte distribution width (RBC) [Ratio] 12.9 % Normal 11.0-15.0 [facility] Comment on above: Performed By: #### U RTPCR #### [facility] [address] [place] [address] Dr. Dwight Waters Hematocrit (Bld) [Volume fraction] 48.3 % Normal 42.0-54.0 [facility] Comment on above: Performed By: #### U RTPCR #### [facility] [address] [place] [address] Dr. Dwight Waters Hemoglobin (Bld) [Mass/Vol] 15.6 g/dL Normal 14.0-18.0 [facility] Comment on above: Performed By: #### U RTPCR #### [facility] [address] [place] [address] Dr. Dwight Waters IG # 0.01 10e3/ul Normal 0.00-0.03 [facility] Comment on above: Performed By: #### U RTPCR #### [facility] [address] [place] [address] Dr. Dwight Waters IG % 0.2 % Normal 0.0-0.5 [facility] Comment on above: Performed By: #### U RTPCR #### [facility] [address] [place] [address] Dr. Dwight Waters LYMPH # 1.9 103/ul Normal 1.2-3.[address] [facility] Comment on above: Performed By: #### U RTPCR #### [facility] [address] [place] [address] Dr. Dwight Waters Lymphocytes/100 WBC (Bld) 33.0 % Normal 20.5-60.[address] [facility] Comment on above: Performed By: #### U RTPCR #### [facility] [address] [place] [address] Dr. Dwight Waters MANUAL DIFF REQ NO Normal [facility] Comment on above: Performed By: #### U RTPCR #### [facility] [address] [place] [address] Dr. Dwight Waters MCH (RBC) [Entitic mass] 27.6 pg Normal 25.9-34.[address] [facility] Comment on above: Performed By: #### U RTPCR #### [facility] [address] [place] [address] Dr. Dwight Waters MCHC (RBC) [Mass/Vol] 32.3 g/dL Normal 29.9-35.[address] [facility] Comment on above: Performed By: #### U RTPCR #### [facility] [address] [place] [address] Dr. Dwight Waters MCV (RBC) [Entitic vol] 85.5 fL Normal 80.0-94.[address] [facility] Comment on above: Performed By: #### U RTPCR #### [facility] [address] [place] [address] Dr. Dwight Waters MONO # 0.5 103/ul Normal 0.3-0.[address] [facility] Comment on above: Performed By: #### U RTPCR #### [facility] [address] [place] [address] Dr. Dwight Waters Monocytes/100 WBC (Bld) 8.8 % Normal 1.7-12.[address] [facility] Comment on above: Performed By: #### U RTPCR #### [facility] [address] [place] [address] Dr. Dwight Waters NEUT # 3.1 103/ul Normal 1.4-6.[address] [facility] Comment on above: Performed By: #### U RTPCR #### [facility] [address] [place] [address] Dr. Dwight Waters Neutrophils/100 WBC (Bld) 53.4 % Normal 43.0-75.[address] [facility] Comment on above: Performed By: #### U RTPCR #### [facility] [address] [place] [address] Dr. Dwight Waters Platelet mean volume (Bld) [Entitic vol] 9.2 fL Critically low 9.5-13.[address] [facility] Comment on above: Performed By: #### U RTPCR #### [facility] [address] [address] [address] Dwight Waters PLT 255 103/ul Normal 150-[address] [facility] Comment on above: Performed By: #### U RTPCR #### [facility] [address] [place] [address] Dr. Dwight Waters RBC 5.65 106/ul Normal 4.70-6.[address] [facility] Comment on above: Performed By: #### U RTPCR #### [facility] [address] [address] [address] Dwight Waters WBC 5.7 103/ul Normal 4.0-11.[address] [facility] Comment on above: Performed By: #### U RTPCR #### [facility] [address] [place] [address] Dr. Dwight Waters GGTon 11-04-2022 Gamma glutamyl transferase [Catalytic activity/Vol] 22 U/L Normal 15-85 [facility] Comment on above: Performed By: #### U RTPCR #### [facility] [address] [place] [address] Dr. Dwight Waters MAGNESIUMon 11-04-2022 Magnesium [Mass/Vol] 1.8 mg/dL Normal 1.8-2.[address] [facility] Comment on above: Performed By: #### U RTPCR #### [facility] [address] [place] [address] Dr. Dwight Waters RENAL FUNCTION PANELon 11-04 Albumin [Mass/Vol] 3.8 g/dL Normal 3.4-5.0 [facility] Comment on above: Performed By: #### U RTPCR #### [facility] [address] [place] [address] Dr. Dwight Waters Calcium [Mass/Vol] 9.3 mg/dL Normal 8.5-10.1 [facility] Comment on above: Performed By: #### U RTPCR #### [facility] [address] [place] [address] Dr. Dwight Waters Chloride [Moles/Vol] 107 mmol/L Normal 98-[address] [facility] Comment on above: Performed By: #### U RTPCR #### [facility] [address] [address] [address] Dwight Waters CO2 [Moles/Vol] 29.2 mmol/L Normal 21.0-32.0 [facility] Comment on above: Performed By: #### U RTPCR #### [facility] [address] [place] [address] Dr. Dwight Waters Creatinine [Mass/Vol] 1.07 mg/dL Normal 0.70-1.[address] [facility] Comment on above: Performed By: #### U RTPCR #### [facility] [address] [place] [address] Dr. Dwight Waters EGFR-AF RWANDAN >60 Normal >=60 [facility] Comment on above: Performed By: #### U RTPCR #### [facility] [address] [place] [address] Dr. Dwight Waters EGFR-NON AF RWANDAN >60 Normal >=[address] [facility] Comment on above: Performed By: #### U RTPCR #### [facility] [address] [place] [address] Dr. Dwight Waters Glucose [Mass/Vol] 106 mg/dL Normal 74-106 [facility] Comment on above: Performed By: #### U RTPCR #### [facility] [address] [place] [address] Dr. Dwight Waters Phosphate [Mass/Vol] 2.8 mg/dL Normal 2.6-4.[address] [facility] Comment on above: Performed By: #### U RTPCR #### [facility] [address] [place] [address] Dr. Dwight Waters Potassium [Moles/Vol] 4.1 mmol/L Normal 3.5-5.[address] [facility] Comment on above: Performed By: #### U RTPCR #### [facility] [address] [place] [address] Dr. Dwight Waters Sodium [Moles/Vol] 143 mmol/L Normal 136-145 [facility] Comment on above: Performed By: #### U RTPCR #### [facility] [address] [place] [address] Dr. Dwight Waters Urea nitrogen [Mass/Vol] 12.0 mg/dL Normal 7.0-18.0 [facility] Comment on above: Performed By: #### U RTPCR #### [facility] [address] [place] [address] Dr. Dwight Waters SGOTon 11-04-2022 AST [Catalytic activity/Vol] 19 U/L Normal 15-[address] [facility] Comment on above: Performed By: #### U RTPCR #### [facility] [address] [place] [address] Dr. Dwight Waters SGPTon 11-04-2022 ALT [Catalytic activity/Vol] 28 U/L Normal 16-63 [facility] Comment on above: Performed By: #### U RTPCR #### [facility] [address] [place] [address] Dr. Dwight Waters URINE T PROTEIN CREAT RATIOo n 11-04-2022 Protein (U) [Mass/Vol] 10.7 mg/dL Normal <=12.0 [facility] Comment on above: Performed By: #### U RTPCR #### [facility] [address] [place] [address] Dr. Dwight Waters UR PROT CREAT RAT 0.13 Normal [facility] Comment on above: Performed By: #### U RTPCR #### [facility] [address] [place] [address] Dr. Dwight Waters URINE CREAT 84.50 mg/dL Normal 20.00-300.00 [facility] Comment on above: Performed By: #### U RTPCR #### [facility] [address] [place] [address] Dr. Dwight Waters FK506 (TACROLIMUS) WHOLE BLO ODon 09-18-2022 Tacrolimus (FK506), Blood 4.6 ng/mL Normal 2.0-20.0 [facility] Comment on above: Result Comment: Trou gh (immediately following transplant) 15.0 . Trough (steady state, 2 weeks or more after transplant): 3.0 - 8.0 . Performed by LC-MS/MS technology. Performed By: #### U RTPCR #### [facility] [address] [place] [address] Dr. Dwight Waters BK VIRUS PCR QUANTon 022 BKV DNA QUANT PCR PLASMA Negative Normal Negative [facility] Comment on above: Result Comment: No B K DNA detected. . The linear range of the assay is 22 - 100,000,000 IU/mL. Performed By: #### U RTPCR #### [facility] [address] [place] [address] Dr. Dwight Waters Log10 BKV DNA Plasma Normal [facility] Comment on above: Performed By: #### U RTPCR #### [facility] [address] [place] [address] Dr. Dwight Waters ALKALINE PHOSPHAon ALP [Catalytic activity/Vol] 92 U/L Normal 46-116 [facility] Comment on above: Performed By: #### U RTPCR #### [facility] [address] [place] [address] Dr. Dwight Waters BILIRUBIN CONJUGATED (DIRECT )on 09-15-2022 BILI, CONJUGATED 0.3 mg/dL Critically high 0.0-0.2 [facility] Comment on above: Performed By: #### U RTPCR #### [facility] [address] [place] [address] Dr. Dwight Waters BILIRUBIN TOTALon 09-15-2022 Bilirubin [Mass/Vol] 1.1 mg/dL Critically high 0.2-1.0 [facility] Comment on above: Performed By: #### U RTPCR #### [facility] [address] [place] [address] Dr. Dwight Waters CBC AUTO DIFFon 09-15-2022 BASO # 0.1 103/ul Normal 0.0-0.1 [facility] Comment on above: Performed By: #### C BC #### [facility] [address] [place] [address] Dr. Dwight Waters Basophils/100 WBC (Bld) 0.8 % Normal 0.2-2.0 [facility] Comment on above: Performed By: #### C BC #### [facility] [address] [place] [address] Dr. Dwight Waters EO # 0.2 103/ul Normal 0.0-0.[address] [facility] Comment on above: Performed By: #### C BC #### [facility] [address] [place] [address] Dr. Dwight Waters Eosinophils/100 WBC (Bld) 3.5 % Normal 0.9-7.[address] [facility] Comment on above: Performed By: #### C BC #### [facility] [address] [place] [address] Dr. Dwight Waters Erythrocyte distribution width (RBC) [Ratio] 13.0 % Normal 11.0-15.0 [facility] Comment on above: Performed By: #### C BC #### [facility] [address] [place] [address] Dr. Dwight Waters Hematocrit (Bld) [Volume fraction] 50.0 % Normal 42.0-54.0 [facility] Comment on above: Performed By: #### C BC #### [facility] [address] [place] [address] Dr. Dwight Waters Hemoglobin (Bld) [Mass/Vol] 16.0 g/dL Normal 14.0-18.0 [facility] Comment on above: Performed By: #### C BC #### [facility] [address] [place] [address] Dr. Dwight Waters IG # 0.02 10e3/ul Normal 0.00-0.[address] [facility] Comment on above: Performed By: #### C BC #### [facility] [address] [place] [address] Dr. Dwight Waters IG % 0.3 % Normal 0.0-0.[address] [facility] Comment on above: Performed By: #### C BC #### [facility] [address] [place] [address] Dr. Dwight Waters LYMPH # 1.8 103/ul Normal 1.2-3.[address] [facility] Comment on above: Performed By: #### C BC #### [facility] [address] [place] [address] Dr. Dwight Waters Lymphocytes/100 WBC (Bld) 26.5 % Normal 20.5-60.[address] [facility] Comment on above: Performed By: #### C BC #### [facility] [address] [place] [address] Dr. Dwight Waters MANUAL DIFF REQ NO Normal [facility] Comment on above: Performed By: #### C BC #### [facility] [address] [place] [address] Dr. Dwight Waters MCH (RBC) [Entitic mass] 28.1 pg Normal 25.9-34.[address] [facility] Comment on above: Performed By: #### C BC #### [facility] [address] [place] [address] Dr. Dwight Waters MCHC (RBC) [Mass/Vol] 32.0 g/dL Normal 29.9-35.[address] [facility] Comment on above: Performed By: #### C BC #### [facility] [address] [place] [address] Dr. Diwght Waters MCV (RBC) [Entitic vol] 87.9 fL Normal 80.0-94.[address] [facility] Comment on above: Performed By: #### C BC #### [facility] [address] [place] [address] Dr. Dwight Waters MONO # 0.5 103/ul Normal 0.3-0.[address] [facility] Comment on above: Performed By: #### C BC #### [facility] [address] [place] [address] Dr. Dwight Waters Monocytes/100 WBC (Bld) 8.1 % Normal 1.7-12.[address] [facility] Comment on above: Performed By: #### C BC #### [facility] [address] [place] [address] Dr. Dwight Waters NEUT # 4.0 103/ul Normal 1.4-6.[address] [facility] Comment on above: Performed By: #### C BC #### [facility] [address] [place] [address] Dr. Dwight Waters Neutrophils/100 WBC (Bld) 60.8 % Normal 43.0-75.0 [facility] Comment on above: Performed By: #### C BC #### [facility] [address] [place] [address] Dr. Dwight Waters Platelet mean volume (Bld) [Entitic vol] 9.4 fL Critically low 9.5-13.5 [facility] Comment on above: Performed By: #### C BC #### [facility] [address] [place] [address] Dr. Dwight Waters PLT 265 103/ul Normal 150-450 [facility] Comment on above: Performed By: #### C BC #### [facility] [address] [place] [address] Dr. Dwight Waters RBC 5.69 106/ul Normal 4.70-6.10 [facility] Comment on above: Performed By: #### C BC #### [facility] [address] [place] [address] Dr. Dwight Waters WBC 6.6 103/ul Normal 4.0-11.0 [facility] Comment on above: Performed By: #### C BC #### [facility] [address] [place] [address] Dr. Dwight Waters GGTon 09-15-2022 Gamma glutamyl transferase [Catalytic activity/Vol] 23 U/L Normal 15-85 [facility] Comment on above: Performed By: #### U RTPCR #### [facility] [address] [place] [address] Dr. Dwight Waters MAGNESIUMon 09-15-2022 Magnesium [Mass/Vol] 1.8 mg/dL Normal 1.8-2.4 [facility] Comment on above: Performed By: #### U RTPCR #### [facility] [address] [place] [address] Dr. Dwight Waters RENAL FUNCTION PANELon 09-15 Albumin [Mass/Vol] 4.1 g/dL Normal 3.4-5.0 [facility] Comment on above: Performed By: #### C BC #### [facility] [address] [address] [address] Dwight Waters Calcium [Mass/Vol] 9.3 mg/dL Normal 8.5-10.1 [facility] Comment on above: Performed By: #### C BC #### [facility] [address] [address] [address] Dwight Waters Chloride [Moles/Vol] 107 mmol/L Normal 98-107 [facility] Comment on above: Performed By: #### C BC #### [facility] [address] [place] [address] Dr. Dwight Waters CO2 [Moles/Vol] 25.6 mmol/L Normal 21.0-32.0 [facility] Comment on above: Performed By: #### C BC #### [facility] [address] [place] [address] Dr. Dwight Waters Creatinine [Mass/Vol] 1.01 mg/dL Normal 0.70-1.30 [facility] Comment on above: Performed By: #### C BC #### [facility] [address] [place] [address] Dr. Dwight Waters EGFR-AF RWANDAN >60 Normal >=60 [facility] Comment on above: Performed By: #### C BC #### [facility] [address] [place] [address] Dr. Dwight Waters EGFR-NON AF RWANDAN >60 Normal >=60 [facility] Comment on above: Performed By: #### C BC #### [facility] [address] [address] [address] Dwight Waters Glucose [Mass/Vol] 119 mg/dL Critically high 74-106 [facility] Comment on above: Performed By: #### C BC #### [facility] [address] [place] [address] Dr. Dwight Waters Phosphate [Mass/Vol] 2.8 mg/dL Normal 2.6-4.7 [facility] Comment on above: Performed By: #### C BC #### [facility] [address] [place] [address] Dr. Dwight Waters Potassium [Moles/Vol] 4.0 mmol/L Normal 3.5-5.1 [facility] Comment on above: Performed By: #### C BC #### [facility] [address] [place] [address] Dr. Dwight Waters Sodium [Moles/Vol] 141 mmol/L Normal 136-145 [facility] Comment on above: Performed By: #### C BC #### [facility] [address] [place] [address] Dr. Dwight Waters Urea nitrogen [Mass/Vol] 15.0 mg/dL Normal 7.0-18.0 [facility] Comment on above: Performed By: #### C BC #### [facility] [address] [place] [address] Dr. Dwight Waters SGOTon 09-15-2022 AST [Catalytic activity/Vol] 18 U/L Normal 15-37 [facility] Comment on above: Performed By: #### U RTPCR #### [facility] [address] [place] [address] Dr. Dwight Waters SGPTon 09-15-2022 ALT [Catalytic activity/Vol] 32 U/L Normal 16-63 [facility] Comment on above: Performed By: #### C BC #### [facility] [address] [place] [address] Dr. Dwight Waters URINE T PROTEIN CREAT RATIOo n 09-15-2022 Protein (U) [Mass/Vol] 14.1 mg/dL Critically high <=12.0 [facility] Comment on above: Performed By: #### U RTPCR #### [facility] [address] [place] [address] Dr. Dwight Waters UR PROT CREAT RAT 0.14 Normal [facility] Comment on above: Performed By: #### U RTPCR #### [facility] [address] [place] [address] Dr. Dwight Waters URINE CREAT 98.89 mg/dL Normal 20.00-300.00 [facility] Comment on above: Performed By: #### U RTPCR #### [facility] [address] [address] [address] Dwight Waters US CAROTID ART BILon [...] MÓNICA JIMENEZ Date: 2022-08-28 13:20 [address] [facility] FK506 (TACROLIMUS) WHOLE BLO ODon 08-17-2022 Tacrolimus (FK506), Blood 9.9 ng/mL Normal 2.0-20.0 [facility] Comment on above: Result Comment: Trou gh (immediately following transplant) 15.0 . Trough (steady state, 2 weeks or more after transplant): 3.0 - 8.0 . Performed by LC-MS/MS technology. Performed By: #### F [id number] #### [facility] [address] [place] [address] Dr. Dwight Waters BK VIRUS PCR QUANTon 022 BKV DNA QUANT PCR PLASMA Negative Normal Negative [facility] Comment on above: Result Comment: No B K DNA detected. . The linear range of the assay is 22 - 100,000,000 IU/mL. Performed By: #### U RTPCR #### [facility] [address] [place] [address] Dr. Dwight Waters Log10 BKV DNA Plasma Normal [facility] Comment on above: Performed By: #### U RTPCR #### [facility] [address] [place] [address] Dr. Dwight Waters ALBUMINon 08-14-2022 Albumin [Mass/Vol] 4.2 g/dL Normal 3.4-5.0 [facility] Comment on above: Performed By: #### F [id number] #### [facility] [address] [place] [address] Dr. Dwight Waters ALKALINE PHOSPHAon 2 ALP [Catalytic activity/Vol] 92 U/L Normal 46-116 [facility] Comment on above: Performed By: #### C BC #### [facility] [address] [place] [address] Dr. Dwight Waters BILIRUBIN CONJUGATED (DIRECT )on 08-14-2022 BILI, CONJUGATED 0.3 mg/dL Critically high 0.0-0.2 [facility] Comment on above: Performed By: #### F [id number] #### [facility] [address] [place] [address] Dr. Dwight Waters BILIRUBIN TOTALon 08-14-2022 Bilirubin [Mass/Vol] 1.5 mg/dL Critically high 0.2-1.0 [facility] Comment on above: Performed By: #### F [id number] #### [facility] [address] [place] [address] Dr. Dwight Waters BUNon 08-14-2022 Urea nitrogen [Mass/Vol] 11.0 mg/dL Normal 7.0-18.0 [facility] Comment on above: Performed By: #### C BC #### [facility] [address] [place] [address] Dr. Dwight Waters CALCIUMon 08-14-2022 Calcium [Mass/Vol] 9.4 mg/dL Normal 8.5-10.1 [facility] Comment on above: Performed By: #### F [id number] #### [facility] [address] [place] [address] Dr. Dwight Waters CBC AUTO DIFFon 08-14-2022 BASO # 0.0 103/ul Normal 0.0-0.1 [facility] Comment on above: Performed By: #### C MP #### [facility] [address] [place] [address] Dr. Dwight Waters Basophils/100 WBC (Bld) 0.5 % Normal 0.2-2.0 [facility] Comment on above: Performed By: #### C MP #### [facility] [address] [place] [address] Dr. Dwight Waters EO # 0.2 103/ul Normal 0.0-0.7 [facility] Comment on above: Performed By: #### C MP #### [facility] [address] [place] [address] Dr. Dwight Waters Eosinophils/100 WBC (Bld) 2.6 % Normal 0.9-7.0 [facility] Comment on above: Performed By: #### C MP #### [facility] [address] [place] [address] Dr. Dwight Waters Erythrocyte distribution width (RBC) [Ratio] 13.1 % Normal 11.0-15.0 [facility] Comment on above: Performed By: #### C MP #### [facility] [address] [place] [address] Dr. Dwight Waters Hematocrit (Bld) [Volume fraction] 47.0 % Normal 42.0-54.0 [facility] Comment on above: Performed By: #### C MP #### [facility] [address] [place] [address] Dr. Dwight Waters Hemoglobin (Bld) [Mass/Vol] 15.3 g/dL Normal 14.0-18.0 [facility] Comment on above: Performed By: #### C MP #### [facility] [facility] [address] [place] [address] Dr. Dwight Waters IG # 0.01 10e3/ul Normal 0.00-0.03 [facility] Comment on above: Performed By: #### C MP #### [facility] [address] [place] [address] Dr. Dwight Waters IG % 0.1 % Normal 0.0-0.5 [facility] Comment on above: Performed By: #### C MP #### [facility] [address] [place] [address] Dr. Dwight Waters LYMPH # 2.3 103/ul Normal 1.2-3.[address] [facility] Comment on above: Performed By: #### C MP #### [facility] [address] [place] [address] Dr. Dwight Waters Lymphocytes/100 WBC (Bld) 29.8 % Normal 20.5-60.[address] [facility] Comment on above: Performed By: #### C MP #### [facility] [address] [place] [address] Dr. Dwight Waters MANUAL DIFF REQ NO Normal [facility] Comment on above: Performed By: #### C MP #### [facility] [address] [place] [address] Dr. Dwight Waters MCH (RBC) [Entitic mass] 28.2 pg Normal 25.9-34.0 [facility] Comment on above: Performed By: #### C MP #### [facility] [address] [place] [address] Dr. Dwight Waters MCHC (RBC) [Mass/Vol] 32.6 g/dL Normal 29.9-35.2 [facility] Comment on above: Performed By: #### C MP #### [facility] [address] [place] [address] Dr. Dwight Waters MCV (RBC) [Entitic vol] 86.7 fL Normal 80.0-94.0 [facility] Comment on above: Performed By: #### C MP #### [facility] [address] [place] [address] Dr. Dwight Waters MONO # 0.7 103/ul Normal 0.3-0.8 [facility] Comment on above: Performed By: #### C MP #### [facility] [address] [place] [address] Dr. Dwight Waters Monocytes/100 WBC (Bld) 8.5 % Normal 1.7-12.0 [facility] Comment on above: Performed By: #### C MP #### [facility] [address] [place] [address] Dr. Dwight Waters NEUT # 4.5 103/ul Normal 1.4-6.5 [facility] Comment on above: Performed By: #### C MP #### [facility] [address] [place] [address] Dr. Dwight Waters Neutrophils/100 WBC (Bld) 58.5 % Normal 43.0-75.0 [facility] Comment on above: Performed By: #### C MP #### [facility] [address] [place] [address] Dr. Dwight Waters Platelet mean volume (Bld) [Entitic vol] 9.7 fL Normal 9.5-13.5 [facility] Comment on above: Performed By: #### C MP #### [facility] [address] [place] [address] Dr. Dwight Waters PLT 266 103/ul Normal 150-[address] [facility] Comment on above: Performed By: #### C MP #### [facility] [address] [place] [address] Dr. Dwight Waters RBC 5.42 106/ul Normal 4.70-6.[address] [facility] Comment on above: Performed By: #### C MP #### [facility] [address] [place] [address] Dr. Dwight Waters WBC 7.6 103/ul Normal 4.0-11.[address] [facility] Comment on above: Performed By: #### C MP #### [facility] [address] [place] [address] Dr. Dwight Waters CHLORIDEon 08-14-2022 Chloride [Moles/Vol] 104 mmol/L Normal 98-[address] [facility] Comment on above: Performed By: #### C BC #### [facility] [address] [place] [address] Dr. Dwight Waters CO2on 08-14-2022 CO2 [Moles/Vol] 27.9 mmol/L Normal 21.0-32.0 [facility] Comment on above: Performed By: #### C BC #### [facility] [address] [place] [address] Dr. Dwight Waters CREATININEon 08-14-2022 Creatinine [Mass/Vol] 1.08 mg/dL Normal 0.70-1.[address] [facility] Comment on above: Performed By: #### C BC #### [facility] [address] [place] [address] Dr. Dwight Waters EGFR-AF RWANDAN >60 Normal >=60 [facility] Comment on above: Performed By: #### C BC #### [facility] [address] [place] [address] Dr. Dwight Waters EGFR-NON AF RWANDAN >60 Normal >=60 [facility] Comment on above: Performed By: #### C BC #### [facility] [address] [place] [address] Dr. Dwight Waters GGTon 08-14-2022 Gamma glutamyl transferase [Catalytic activity/Vol] 24 U/L Normal 15-85 [facility] Comment on above: Performed By: #### F [id number] #### [facility] [address] [place] [address] Dr. Dwight Waters GLUCOSE BLOODon 08-14-2022 Glucose [Mass/Vol] 111 mg/dL Critically high 74-106 [facility] Comment on above: Performed By: #### C BC #### [facility] [address] [place] [address] Dr. Dwight Waters MAGNESIUMon 08-14-2022 Magnesium [Mass/Vol] 1.4 mg/dL Critically low 1.8-2.4 [facility] Comment on above: Performed By: #### C BC #### [facility] [address] [place] [address] Dr. Dwight Waters NAon 08-14-2022 Sodium [Moles/Vol] 140 mmol/L Normal 136-145 [facility] Comment on above: Performed By: #### F [id number] #### [facility] [address] [place] [address] Dr. Dwight Waters PHOSPHORUSon 08-14-2022 Phosphate [Mass/Vol] 3.1 mg/dL Normal 2.6-4.7 [facility] Comment on above: Performed By: #### C BC #### [facility] [address] [place] [address] Dr. Dwight Waters POTASSIUMon 08-14-2022 Potassium [Moles/Vol] 3.5 mmol/L Normal 3.5-5.1 [facility] Comment on above: Performed By: #### C BC #### [facility] [address] [place] [address] Dr. Dwight Waters SGOTon 08-14-2022 AST [Catalytic activity/Vol] 17 U/L Normal 15-37 [facility] Comment on above: Performed By: #### F [id number] #### [facility] [address] [place] [address] Dr. Dwight Waters SGPTon 08-14-2022 ALT [Catalytic activity/Vol] 22 U/L Normal 16-[address] [facility] Comment on above: Performed By: #### F [id number] #### [facility] [address] [place] [address] Dr. Dwight Waters URINE T PROTEIN CREAT RATIOo n 08-14-2022 Protein (U) [Mass/Vol] 10.7 mg/dL Normal <=12.0 [facility] Comment on above: Performed By: #### F [id number] #### [facility] [address] [place] [address] Dr. Dwight Waters UR PROT CREAT RAT 0.10 Normal [facility] Comment on above: Performed By: #### F [id number] #### [facility] [address] [place] [address] Dr. Dwight Waters URINE CREAT 104.28 mg/dL Normal 20.00-300.00 [facility] Comment on above: Performed By: #### F [id number] #### [facility] [address] [place] [address] Dr. Dwight Waters NEPHROSTOMY TUBE REMOVALon 0 [...] Assisting physician present for entire procedure: yes [facility] Radiology Study observation (narrative) [facility] FK506 (TACROLIMUS) WHOLE BLO ODon 07-06-2022 Tacrolimus (FK506), Blood 9.5 ng/mL Normal 2.0-20.0 [facility] Comment on above: Result Comment: Trou gh (immediately following transplant) 15.0 . Trough (steady state, 2 weeks or more after transplant): 3.0 - 8.0 . Performed by LC-MS/MS technology. Performed By: #### C MP #### [facility] [address] [place] [address] Dr. Dwight Waters ALBUMINon 07-03-2022 Albumin [Mass/Vol] 3.7 g/dL Normal 3.4-5.0 [facility] Comment on above: Performed By: #### U RTPCR #### [facility] [address] [place] [address] Dr. Dwight Waters ALKALINE PHOSPHAon ALP [Catalytic activity/Vol] 76 U/L Normal 46-116 [facility] Comment on above: Performed By: #### U RTPCR #### [facility] [address] [place] [address] Dr. Dwight Waters BILIRUBIN CONJUGATED (DIRECT )on 07-03-2022 BILI, CONJUGATED 0.3 mg/dL Critically high 0.0-0.2 [facility] Comment on above: Performed By: #### C BC #### [facility] [address] [place] [address] Dr. Dwight Waters BILIRUBIN TOTALon 07-03-2022 Bilirubin [Mass/Vol] 1.4 mg/dL Critically high 0.2-1.0 [facility] Comment on above: Performed By: #### C BC #### [facility] [address] [place] [address] Dr. Dwight Waters BUNon 07-03-2022 Urea nitrogen [Mass/Vol] 15.0 mg/dL Normal 7.0-18.0 [facility] Comment on above: Performed By: #### C BC #### [facility] [address] [place] [address] Dr. Dwight Waters CALCIUMon 07-03-2022 Calcium [Mass/Vol] 9.4 mg/dL Normal 8.5-10.1 [facility] Comment on above: Performed By: #### U RTPCR #### [facility] [address] [place] [address] Dr. Dwight Waters CBC AUTO DIFFon 07-03-2022 BASO # 0.0 103/ul Normal 0.0-0.1 [facility] Comment on above: Performed By: #### U RTPCR #### [facility] [address] [place] [address] Dr. Dwight Waters Basophils/100 WBC (Bld) 0.6 % Normal 0.2-2.0 [facility] Comment on above: Performed By: #### U RTPCR #### [facility] [address] [place] [address] Dr. Dwight Waters EO # 0.2 103/ul Normal 0.0-0.7 [facility] Comment on above: Performed By: #### U RTPCR #### [facility] [address] [place] [address] Dr. Dwight Waters Eosinophils/100 WBC (Bld) 3.5 % Normal 0.9-7.0 [facility] Comment on above: Performed By: #### U RTPCR #### [facility] [address] [place] [address] Dr. Dwight Waters Erythrocyte distribution width (RBC) [Ratio] 12.9 % Normal 11.0-15.0 [facility] Comment on above: Performed By: #### U RTPCR #### [facility] [address] [place] [address] Dr. Dwight Waters Hematocrit (Bld) [Volume fraction] 44.2 % Normal 42.0-54.0 [facility] Comment on above: Performed By: #### U RTPCR #### [facility] [address] [place] [address] Dr. Dwight Waters Hemoglobin (Bld) [Mass/Vol] 14.6 g/dL Normal 14.0-18.0 [facility] Comment on above: Performed By: #### U RTPCR #### [facility] [address] [place] [address] Dr. Dwight Waters IG # 0.02 10e3/ul Normal 0.00-0.03 [facility] Comment on above: Performed By: #### U RTPCR #### [facility] [address] [place] [address] Dr. Dwight Waters IG % 0.3 % Normal 0.0-0.5 [facility] Comment on above: Performed By: #### U RTPCR #### [facility] [address] [place] [address] Dr. Dwight Waters LYMPH # 2.0 103/ul Normal 1.2-3.8 [facility] Comment on above: Performed By: #### U RTPCR #### [facility] [address] [place] [address] Dr. Dwight Waters Lymphocytes/100 WBC (Bld) 28.4 % Normal 20.5-60.0 [facility] Comment on above: Performed By: #### U RTPCR #### [facility] [address] [place] [address] Dr. Dwight Waters MANUAL DIFF REQ NO Normal [facility] Comment on above: Performed By: #### U RTPCR #### [facility] [address] [place] [address] Dr. Dwight Waters MCH (RBC) [Entitic mass] 28.6 pg Normal 25.9-34.0 [facility] Comment on above: Performed By: #### U RTPCR #### [facility] [address] [address] [address] Dwight Waters MCHC (RBC) [Mass/Vol] 33.0 g/dL Normal 29.9-35.2 [facility] Comment on above: Performed By: #### U RTPCR #### [facility] [address] [address] [address] Dwight Waters MCV (RBC) [Entitic vol] 86.7 fL Normal 80.0-94.0 [facility] Comment on above: Performed By: #### U RTPCR #### [facility] [address] [place] [address] Dr. Dwight Waters MONO # 0.6 103/ul Normal 0.3-0.8 [facility] Comment on above: Performed By: #### U RTPCR #### [facility] [address] [place] [address] Dr. Dwight Waters Monocytes/100 WBC (Bld) 9.1 % Normal 1.7-12.0 [facility] Comment on above: Performed By: #### U RTPCR #### [facility] [address] [place] [address] Dr. Dwight Waters NEUT # 4.0 103/ul Normal 1.4-6.5 [facility] Comment on above: Performed By: #### U RTPCR #### [facility] [address] [place] [address] Dr. Dwight Waters Neutrophils/100 WBC (Bld) 58.1 % Normal 43.0-75.0 [facility] Comment on above: Performed By: #### U RTPCR #### [facility] [address] [place] [address] Dr. Dwight Waters Platelet mean volume (Bld) [Entitic vol] 9.5 fL Normal 9.5-13.5 [facility] Comment on above: Performed By: #### U RTPCR #### [facility] [address] [place] [address] Dr. Dwight Waters PLT 292 103/ul Normal 150-[address] [facility] Comment on above: Performed By: #### U RTPCR #### [facility] [address] [place] [address] Dr. Dwight Waters RBC 5.10 106/ul Normal 4.70-6.[address] [facility] Comment on above: Performed By: #### U RTPCR #### [facility] [address] [place] [address] Dr. Dwight Waters WBC 6.9 103/ul Normal 4.0-11.[address] [facility] Comment on above: Performed By: #### U RTPCR #### [facility] [address] [place] [address] Dr. Dwight Waters CHLORIDEon 07-03-2022 Chloride [Moles/Vol] 108 mmol/L Critically high 98-[address] [facility] Comment on above: Performed By: #### C BC #### [facility] [address] [place] [address] Dr. Dwight Waters CO2on 07-03-2022 CO2 [Moles/Vol] 25.2 mmol/L Normal 21.0-32.0 [facility] Comment on above: Performed By: #### C BC #### [facility] [address] [place] [address] Dr. Dwight Waters CREATININEon 07-03-2022 Creatinine [Mass/Vol] 1.03 mg/dL Normal 0.70-1.[address] [facility] Comment on above: Performed By: #### U RTPCR #### [facility] [address] [place] [address] Dr. Dwight Waters EGFR-AF RWANDAN >60 Normal >=60 [facility] Comment on above: Performed By: #### U RTPCR #### [facility] [address] [place] [address] Dr. Dwight Waters EGFR-NON AF RWANDAN >60 Normal >=[address] [facility] Comment on above: Performed By: #### U RTPCR #### [facility] [address] [place] [address] Dr. Dwight Waters GGTon 07-03-2022 Gamma glutamyl transferase [Catalytic activity/Vol] 31 U/L Normal 15-85 [facility] Comment on above: Performed By: #### U RTPCR #### [facility] [address] [place] [address] Dr. Dwight Waters GLUCOSE BLOODon 07-03-2022 Glucose [Mass/Vol] 119 mg/dL Critically high 74-106 [facility] Comment on above: Performed By: #### U RTPCR #### [facility] [address] [place] [address] Dr. Dwight Waters MAGNESIUMon 07-03-2022 Magnesium [Mass/Vol] 1.4 mg/dL Critically low 1.8-2.4 [facility] Comment on above: Performed By: #### C BC #### [facility] [address] [place] [address] Dr. Dwight Waters NAon 07-03-2022 Sodium [Moles/Vol] 142 mmol/L Normal 136-145 [facility] Comment on above: Performed By: #### C MP #### [facility] [address] [place] [address] Dr. Dwight Waters PHOSPHORUSon 07-03-2022 Phosphate [Mass/Vol] 3.4 mg/dL Normal 2.6-4.7 [facility] Comment on above: Performed By: #### C BC #### [facility] [address] [place] [address] Dr. Dwight Waters POTASSIUMon 07-03-2022 Potassium [Moles/Vol] 4.1 mmol/L Normal 3.5-5.1 [facility] Comment on above: Performed By: #### C BC #### [facility] [address] [place] [address] Dr. Dwight Waters SGOTon 07-03-2022 AST [Catalytic activity/Vol] 14 U/L Critically low 15-37 [facility] Comment on above: Performed By: #### C BC #### [facility] [address] [place] [address] Dr. Dwight Waters SGPTon 07-03-2022 ALT [Catalytic activity/Vol] 25 U/L Normal 16-63 [facility] Comment on above: Performed By: #### C #### [facility] [address] [address] [address] Dwight Waters US KIDNEYSon 07-03-2022 US KIDNEYS Ultrasound kidneys, bilateral HISTORY: Transplant of kidney , pain in the right lower quadrant COMPARISON: None. TECHNIQUE: Transabdominal ultrasound imaging of both kidneys was performed. FINDINGS: The [place] kidneys are diffusely echogenic and atrophic with cortical thinning. The right kidney measures 8.3 x 3.5 x 4.07 m and the left measures 9.9 x 3.8 x 3.6 cm. No hydronephrosis of the [place] kidneys. There is a renal transplant in [...] stone involving the renal transplant. 2. Atrophic [place] kidneys. 3. Normal bladder. Electronically authenticated by: ARCELIA PIZARRO Date: 2022-07-03 17:22 [address] [facility] CT Abdomen and Pelvis WO con traston 06-27-2022 IMPRESSION: 1. Both [place] kidneys are atrophic with improvement in right-sided [...] Adrenals: Adrenal glands are unremarkable. Kidneys: Both [place] kidneys are atrophic. Interval improvement in right [place] kidney hydronephrosis since May 15, 2022. Status [...] Adrenals: Adrenal glands are unremarkable. Kidneys: Both [place] kidneys are atrophic. Interval improvement in right [place] kidney hydronephrosis since May 15, 2022. Status [...] aggressive osseous lesions. IMPRESSION IMPRESSION: 1. Both [place] kidneys are atrophic with improvement in right-sided hydronephrosis since May 15, 2022. 2. 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 No hydronephrosis. No discrete perinephric collection. 3. Partially imaged postsurgical changes related to prior liver transplant. 4. The bladder is decompressed, limiting evaluation. [facility] Radiology Study observation (narrative) [facility] CT Abdomen and Pelvis WO con trastOrdered By: Gera Lu on 06-27-2022 [facility] Work Phone: CBC AUTO DIFFon 06-18-2022 BASO # 0.0 103/ul Normal 0.0-0.1 [facility] Comment on above: Performed By: #### U RTPCR #### [facility] [address] [place] [address] Dr. Dwight Waters Basophils/100 WBC (Bld) 0.5 % Normal 0.2-2.0 [facility] Comment on above: Performed By: #### U RTPCR #### [facility] [address] [place] [address] Dr. Dwight Waters EO # 0.2 103/ul Normal 0.0-0.7 [facility] Comment on above: Performed By: #### U RTPCR #### [facility] [address] [place] [address] Dr. Dwight Waters Eosinophils/100 WBC (Bld) 2.3 % Normal 0.9-7.0 [facility] Comment on above: Performed By: #### U RTPCR #### [facility] [address] [place] [address] Dr. Dwight Waters Erythrocyte distribution width (RBC) [Ratio] 12.9 % Normal 11.0-15.0 [facility] Comment on above: Performed By: #### U RTPCR #### [facility] [address] [place] [address] Dr. Dwight Waters Hematocrit (Bld) [Volume fraction] 41.2 % Critically low 42.0-54.0 [facility] Comment on above: Performed By: #### U RTPCR #### [facility] [address] [place] [address] Dr. Dwight Waters Hemoglobin (Bld) [Mass/Vol] 13.3 g/dL Critically low 14.0-18.0 [facility] Comment on above: Performed By: #### U RTPCR #### [facility] [address] [place] [address] Dr. Dwight Waters IG # 0.04 10e3/ul Critically high 0.00-0.03 [facility] Comment on above: Performed By: #### U RTPCR #### [facility] [address] [place] [address] Dr. Dwight Waters IG % 0.5 % Normal 0.0-0.5 [facility] Comment on above: Performed By: #### U RTPCR #### [facility] [address] [place] [address] Dr. Dwight Waters LYMPH # 2.0 103/ul Normal 1.2-3.8 [facility] Comment on above: Performed By: #### U RTPCR #### [facility] [address] [place] [address] Dr. Dwight Waters Lymphocytes/100 WBC (Bld) 22.9 % Normal 20.5-60.0 [facility] Comment on above: Performed By: #### U RTPCR #### [facility] [address] [place] [address] Dr. Dwight Waters MANUAL DIFF REQ NO Normal [facility] Comment on above: Performed By: #### U RTPCR #### [facility] [address] [place] [address] Dr. Dwight Waters MCH (RBC) [Entitic mass] 28.7 pg Normal 25.9-34.0 [facility] Comment on above: Performed By: #### U RTPCR #### [facility] [address] [place] [address] Dr. Dwight Waters MCHC (RBC) [Mass/Vol] 32.3 g/dL Normal 29.9-35.2 [facility] Comment on above: Performed By: #### U RTPCR #### [facility] [address] [place] [address] Dr. Dwight Waters MCV (RBC) [Entitic vol] 88.8 fL Normal 80.0-94.0 [facility] Comment on above: Performed By: #### U RTPCR #### [facility] [address] [place] [address] Dr. Dwight Waters MONO # 0.8 103/ul Normal 0.3-0.8 [facility] Comment on above: Performed By: #### U RTPCR #### [facility] [address] [place] [address] Dr. Dwight Waters Monocytes/100 WBC (Bld) 9.7 % Normal 1.7-12.[address] [facility] Comment on above: Performed By: #### U RTPCR #### [facility] [address] [place] [address] Dr. Dwight Waters NEUT # 5.6 103/ul Normal 1.4-6.[address] [facility] Comment on above: Performed By: #### U RTPCR #### [facility] [address] [place] [address] Dr. Dwight Waters Neutrophils/100 WBC (Bld) 64.1 % Normal 43.0-75.0 [facility] Comment on above: Performed By: #### U RTPCR #### [facility] [address] [place] [address] Dr. Dwight Waters Platelet mean volume (Bld) [Entitic vol] 10.0 fL Normal 9.5-13.5 [facility] Comment on above: Performed By: #### U RTPCR #### [facility] [address] [place]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 Interpretation and review of laboratory results Abnormal [facility] MCH (RBC) [Entitic mass] 28.6 pg 26.1 - 33.3 pg [facility] MCHC (RBC) [Mass/Vol] 31.6 g/dL Low 31.9 - 36.5 g/dL [facility] MCV (RBC) [Entitic vol] 90.5 fL 79.0 - 94.5 fL [facility] Platelet mean volume (Bld) [Entitic vol] 9.7 fL 8.7 - 12.3 fL [facility] Platelets (Bld) [#/Vol] 199 10*3/uL 146 - 337 K/uL [facility] RBC (Bld) [#/Vol] 4.20 10*6/uL [facility]Bld[facility] [#/Vol] 6.81 10*3/uL 3.73 - 10. 10 K/uL [facility] CHEM 7 (LYTES,BUN,CREA,GLUC) on 05-19-2022 Anion gap [Moles/Vol] 13 mmol/L 7 - 17 mmol/L [facility] Chloride [Moles/Vol] 105 mmol/L 98 - 10 8 mmol/L [facility] CO2 [Moles/Vol] 30 mmol/L 21 - 31 mmol/L [facility] Creatinine [Mass/Vol] 1.39 mg/dL High 0.70 - 1.30 mg/dL [facility] GFR/1.73 sq M.predicted CKD-EPI (S/P/Bld) [Vol rate/Area] 61 >=60 mL/min/1.73m2 [facility] Comment on above: Reported eGFR is bas ed on the CKD-EPI 2020 equation using creatinine, age, and sex. Glucose [Mass/Vol] 121 mg/dL High 70 - 99 mg/dL [facility] Interpretation and review of laboratory results Abnormal [facility] Osmolality Calc [Osmolality] 303 [facility] Potassium [Moles/Vol] 3.8 mmol/L 3.5 - 5.0 mmol/L [facility] Sodium [Moles/Vol] 144 mmol/L 135 - 145 mmol/L [facility] Urea nitrogen [Mass/Vol] 18 mg/dL 7 - 25 mg/dL [facility] Urea nitrogen/Creatinine [Mass ratio] 13 mg/mg [facility] Anion gap [Moles/Vol] 15 mmol/L 7 - 17 mmol/L [facility] Chloride [Moles/Vol] 106 mmol/L 98 - 10 8 mmol/L [facility] CO2 [Moles/Vol] 24 mmol/L 21 - 31 mmol/L [facility] Creatinine [Mass/Vol] 1.46 mg/dL High 0.70 - 1.30 mg/dL [facility] GFR/1.73 sq M.predicted CKD-EPI (S/P/Bld) [Vol rate/Area] 58 Low >=60 mL/min/1.73m2 [facility] Comment on above: Reported eGFR is bas ed on the CKD-EPI 2020 equation using creatinine, age, and sex. Glucose [Mass/Vol] 103 mg/dL High 70 - 99 mg/dL [facility] Interpretation and review of laboratory results Abnormal [facility] Osmolality Calc [Osmolality] 298 [facility] Potassium [Moles/Vol] 3.9 mmol/L 3.5 - 5.0 mmol/L [facility] Sodium [Moles/Vol] 141 mmol/L 135 - 145 mmol/L [facility] Urea nitrogen [Mass/Vol] 21 mg/dL 7 - 25 mg/dL [facility] Urea nitrogen/Creatinine [Mass ratio] 14 mg/mg [facility] MAGNESIUMon 05-19-2022 Magnesium [Mass/Vol] 2.0 mg/dL 1.6 - 2 .6 mg/dL [facility] Magnesium [Mass/Vol] 1.7 mg/dL 1.6 - 2 .6 mg/dL [facility] No Panel Informationon 05-19 Interpretation and review of laboratory results Normal [facility] Interpretation and review of laboratory results Normal [facility] PHOSPHATE, INORGANICon 05-19 Phosphate [Mass/Vol] 3.0 mg/dL 2.2 - 4 .6 mg/dL [facility] Phosphate [Mass/Vol] 2.7 mg/dL 2.2 - 4 .6 mg/dL [facility] CALCIUMon 05-18-2022 Calcium [Mass/Vol] 9.1 mg/dL 8.6 - 10. 5 mg/dL [facility] CBC,PLATELETSon 05-18-2022 Erythrocyte distribution width (RBC) [Ratio] 12.5 % 10.9 - 14.3 % [facility] Hematocrit (Bld) [Volume fraction] 37.3 % Low 39.6 - 48.8 % [facility] Hemoglobin (Bld) [Mass/Vol] 11.9 g/dL Low 13.4 - 16.8 g/dL [facility] Interpretation and review of laboratory results Abnormal [facility] MCH (RBC) [Entitic mass] 28.9 pg 26.1 - 33.3 pg [facility] MCHC (RBC) [Mass/Vol] 31.9 g/dL 31.9 - 36.5 g/dL [facility] MCV (RBC) [Entitic vol] 90.5 fL 79.0 - 94.5 fL [facility] Platelet mean volume (Bld) [Entitic vol] 10.1 fL 8.7 - 12.3 fL [facility] Platelets (Bld) [#/Vol] 189 10*3/uL 146 - 337 K/uL [facility] RBC (Bld) [#/Vol] 4.12 10*6/uL [facility] WBC (Bld) [#/Vol] 10.19 10*3/uL High 3.73 - 10 .10 K/uL [facility] CHEM 7 (LYTES,BUN,CREA,GLUC) on 05-18-2022 Anion gap [Moles/Vol] 13 mmol/L 7 - 17 mmol/L [facility] Chloride [Moles/Vol] 102 mmol/L 98 - 10 8 mmol/L [facility] CO2 [Moles/Vol] 26 mmol/L 21 - 31 mmol/L [facility] Creatinine [Mass/Vol] 1.91 mg/dL High 0.70 - 1.30 mg/dL [facility] GFR/1.73 sq M.predicted CKD-EPI (S/P/Bld) [Vol rate/Area] 42 Low >=60 mL/min/1.73m2 [facility] Comment on above: Reported eGFR is bas ed on the CKD-EPI 2020 equation using creatinine, age, and sex. Glucose [Mass/Vol] 158 mg/dL High 70 - 99 mg/dL [facility]ality Calc [facility]olality] [facility] Potassium [Moles/Vol] 4.0 mmol/L 3.5 - 5.0 mmol/L [facility] Sodium [Moles/Vol] 137 mmol/L 135 - 145 mmol/L [facility] Urea nitrogen [Mass/Vol] 30 mg/dL High 7 - 25 mg/dL [facility] Urea nitrogen/Creatinine [Mass ratio] 16 mg/mg [facility] CHEM 7 (LYTES,BUN,CREA,GLUC) Ordered By: Tamiko Thapa on 05-18-2022 Anion gap [Moles/Vol] 13 mmol/L 7 - 17 mmol/L [facility] Chloride [Moles/Vol] 104 mmol/L 98 - 10 8 mmol/L [facility] CO2 [Moles/Vol] 26 mmol/L 21 - 31 mmol/L [facility] Creatinine [Mass/Vol] 2.96 mg/dL High 0.70 - 1.30 mg/dL [facility] GFR/1.73 sq M.predicted CKD-EPI (S/P/Bld) [Vol rate/Area] 25 Low >=60 mL/min/1.73m2 [facility] Comment on above: Reported eGFR is bas ed on the CKD-EPI 2020 equation using creatinine, age, and sex. Glucose [Mass/Vol] 136 mg/dL High 70 - 99 mg/dL [facility] Interpretation and review of laboratory results Abnormal [facility] Osmolality Calc [Osmolality] 304 [facility] Potassium [Moles/Vol] 4.2 mmol/L 3.5 - 5.0 mmol/L [facility] Sodium [Moles/Vol] 139 mmol/L 135 - 145 mmol/L [facility] Urea nitrogen [Mass/Vol] 41 mg/dL High 7 - 25 mg/dL [facility] Urea nitrogen/Creatinine [Mass ratio] 14 mg/mg [facility] MAGNESIUMon 05-18-2022 Magnesium [Mass/Vol] 2.2 mg/dL 1.6 - 2 .6 mg/dL [facility] Interpretation and review of laboratory results Normal [facility] Magnesium [Mass/Vol] 1.7 mg/dL 1.6 - 2 .6 mg/dL [facility] No Panel Informationon 05-18 Interpretation and review of laboratory results Abnormal [facility] Interpretation and review of laboratory results Normal [facility] PHOSPHATE, INORGANICon 05-18 Phosphate [Mass/Vol] 2.0 mg/dL Low 2.2 - 4 .6 mg/dL [facility] Interpretation and review of laboratory results Normal [facility] Phosphate [Mass/Vol] 2.8 mg/dL 2.2 - 4 .6 mg/dL [facility] PT,INR,PTTon 05-18-2022 aPTT Coag (PPP) [Time] 31.0 s [facility] INR Coag (Bld) [Relative time] 1.1 {INR} [facility] Interpretation and review of laboratory results Abnormal [facility] PT Coag (PPP) [Time] 14.4 s High [facility] URINE CULTUREOrdered By: Sylvia Campos on 05-18-2022 Bacteria identified Cx Nom (Unsp spec) No Growth [facility] CBC,PLATELETSon 05-17-2022 Erythrocyte distribution width (RBC) [Ratio] 12.8 % 10.9 - 14.3 % [facility] Hematocrit (Bld) [Volume fraction] 42.8 % 39.6 - 48.8 % [facility] Hemoglobin (Bld) [Mass/Vol] 13.3 g/dL Low 13.4 - 16.8 g/dL [facility] Interpretation and review of laboratory results Abnormal [facility] MCH (RBC) [Entitic mass] 28.9 pg 26.1 - 33.3 pg [facility] MCHC (RBC) [Mass/Vol] 31.1 g/dL Low 31.9 - 36.5 g/dL [facility] MCV (RBC) [Entitic vol] 92.8 fL 79.0 - 94.5 fL [facility] Platelet mean volume (Bld) [Entitic vol] 10.3 fL 8.7 - 12.3 fL [facility] Platelets (Bld) [#/Vol] 188 10*3/uL 146 - 337 K/uL [facility] RBC (Bld) [#/Vol] 4.61 10*6/uL [facility] WBC (Bld) [#/Vol] 16.61 10*3/uL High 3.73 - 10 .10 K/uL [facility] CHEM 7 (LYTES,BUN,CREA,GLUC) Ordered By: Kaylah Mc on 05-17-2022 Anion gap [Moles/Vol] 15 mmol/L 7 - 17 mmol/L [facility] Chloride [Moles/Vol] 103 mmol/L 98 - 10 8 mmol/L [facility] CO2 [Moles/Vol] 23 mmol/L 21 - 31 mmol/L [facility] Creatinine [Mass/Vol] 5.95 mg/dL High 0.70 - 1.30 mg/dL [facility] GFR/1.73 sq M.predicted CKD-EPI (S/P/Bld) [Vol rate/Area] 11 Low >=60 mL/min/1.73m2 [facility] Comment on above: Reported eGFR is bas ed on the CKD-EPI 2020 equation using creatinine, age, and sex. Glucose [Mass/Vol] 165 mg/dL High 70 - 99 mg/dL [facility] Interpretation and review of laboratory results Abnormal [facility] Osmolality Calc [Osmolality] 305 [facility] Potassium [Moles/Vol] 4.6 mmol/L 3.5 - 5.0 mmol/L [facility] Sodium [Moles/Vol] 136 mmol/L 135 - 145 mmol/L [facility] Urea nitrogen [Mass/Vol] 52 mg/dL High 7 - 25 mg/dL [facility] Urea nitrogen/Creatinine [Mass ratio] 9 mg/mg [facility] CHEM 7 (LYTES,BUN,CREA,GLUC) Ordered By: Kehinde Olsen on 05-17-2022 Anion gap [Moles/Vol] 24 mmol/L High 7 - 17 mmol/L [facility] Chloride [Moles/Vol] 100 mmol/L 98 - 10 8 mmol/L [facility] CO2 [Moles/Vol] 16 mmol/L Low 21 - 31 mmol/L [facility] Creatinine [Mass/Vol] 8.08 mg/dL High 0.70 - 1.30 mg/dL [facility] GFR/1.73 sq M.predicted CKD-EPI (S/P/Bld) [Vol rate/Area] 7 Low >=60 mL/min/1.73m2 [facility] Comment on above: Reported eGFR is bas ed on the CKD-EPI 2020 equation using creatinine, age, and sex. Glucose [Mass/Vol] 164 mg/dL High 70 - 99 mg/dL [facility] Interpretation and review of laboratory results Abnormal [facility] Osmolality Calc [Osmolality] 305 [facility] Potassium [Moles/Vol] 5.0 mmol/L 3.5 - 5.0 mmol/L [facility] Sodium [Moles/Vol] 135 mmol/L 135 - 145 mmol/L [facility] Urea nitrogen [Mass/Vol] 56 mg/dL High 7 - 25 mg/dL [facility] Urea nitrogen/Creatinine [Mass ratio] 7 mg/mg [facility] LAVENDER TOP TUBEon 05-17-20 [facility] MAGNESIUMon 05-17-2022 Interpretation and review of laboratory results Normal [facility] Magnesium [Mass/Vol] 1.8 mg/dL 1.6 - 2 .6 mg/dL [facility] Interpretation and review of laboratory results Normal [facility] Magnesium [Mass/Vol] 1.6 mg/dL 1.6 - 2 .6 mg/dL [facility] No Panel Informationon 05-17 [facility] PHOSPHATE, INORGANICon 05-17 Interpretation and review of laboratory results Abnormal [facility] Phosphate [Mass/Vol] 4.9 mg/dL High 2.2 - 4 .6 mg/dL [facility] PT,INR,PTTon 05-17-2022 aPTT Coag (PPP) [Time] 33.0 s [facility] INR Coag (Bld) [Relative time] 1.3 {INR} High [facility] Interpretation and review of laboratory results Abnormal [facility] PT Coag (PPP) [Time] 15.7 s High [facility] Port[facility] Viewson IMPRESSION: [...] Stable cardiomegaly. IMPRESSION IMPRESSION: No acute findings. [facility] Radiology Study observation (narrative) [facility] Portable XR Chest ViewsOrder ed By: David Sanz on 05-17-2022 [facility] Work Phone: URINALYSISOrdered By: Michael patel Ma on 05-17-2022 Appearance (U) Cloudy Abnormal Clear [facility] Comment on above: Results may be inacc urate due to color interference. Clinical correlation recommended. Bacteria LM Ql (Urine sed) ABSENT ABSENT [facility] Color (U) Red Abnormal Yellow [facility] Comment on above: Results may be inacc urate due to color interference. Clinical correlation recommended. Epithelial cells.squamous LM Ql (Urine sed) ABSENT 1/hpf = 1+, 2-5/hpf = 2+, 0/hpf = 0+, ABSENT [facility] Glucose Test strip (U) [Mass/Vol] Negative Negative [facility] Comment on above: Results may be inacc urate due to color interference. Clinical correlation recommended. Interpretation and review of laboratory results Abnormal [facility] Ketones (U) [Mass/Vol] Trace Abnormal Negative [facility] Comment on above: Results may be inacc urate due to color interference. Clinical correlation recommended. Leukocyte esterase Test strip Ql (U) Large Abnormal Negative [facility] Comment on above: Results may be inacc urate due to color interference. Clinical correlation recommended. Nitrite Ql (U) Negative Negative [facility] Comment on above: Results may be inacc urate due to color interference. Clinical correlation recommended. pH (U) 5.0 [pH] 5.0 - 7.0 [facility] Comment on above: Results may be inacc urate due to color interference. Clinical correlation recommended. Protein (U) [Mass/Vol] mg/dL Abnormal Negative [facility] Comment on above: Results may be inacc urate due to color interference. Clinical correlation recommended. RBC (U) [#/Vol] Large Abnormal Negative [facility] Comment on above: Results may be inacc urate due to color interference. Clinical correlation recommended. RBC LM.HPF (Urine sed) [#/Area] /[HPF] Abnormal 0 - 2 /HPF [facility] Specific gravity (U) [Rel density] 1.016 [facility] Comment on above: Results may be inacc urate due to color interference. Clinical correlation recommended. Urobilinogen (U) [Mass/Vol] 0.2 E.U./dL 0.2 E.U/dL, 1.0 E.U/dL [facility] Comment on above: Results may be inacc urate due to color interference. Clinical correlation recommended. WBC LM.HPF (Urine sed) [#/Area] /[HPF] Abnormal 0 - 5 /HPF [facility] URINE CULTUREOrdered By: Tyler Tiwari on 05-17-2022 Bacteria identified Cx Nom (Unsp spec) No Growth [facility] CBC,PLATELETSon 05-16-2022 Erythrocyte distribution width (RBC) [Ratio] 12.9 % 10.9 - 14.3 % [facility] Hematocrit (Bld) [Volume fraction] 46.5 % 39.6 - 48.8 % [facility] Hemoglobin (Bld) [Mass/Vol] 14.7 g/dL 13.4 - 16.8 g/dL [facility] Interpretation and review of laboratory results Abnormal [facility] MCH (RBC) [Entitic mass] 28.3 pg 26.1 - 33.3 pg [facility] MCHC (RBC) [Mass/Vol] 31.6 g/dL Low 31.9 - 36.5 g/dL [facility] MCV (RBC) [Entitic vol] 89.6 fL 79.0 - 94.5 fL [facility] Platelet mean volume (Bld) [Entitic vol] 10.3 fL 8.7 - 12.3 fL [facility] Platelets (Bld) [#/Vol] 188 10*3/uL 146 - 337 K/uL [facility] RBC (Bld) [#/Vol] 5.19 10*6/uL [facility] WBC (Bld) [#/Vol] 12.55 10*3/uL High 3.73 - 10 .10 K/uL [facility] CHEM 7 (LYTES,BUN,CREA,GLUC) Ordered By: Alma Pena on 05-16-2022 Anion gap [Moles/Vol] 14 mmol/L 7 - 17 mmol/L [facility] Chloride [Moles/Vol] 103 mmol/L 98 - 10 8 mmol/L [facility] CO2 [Moles/Vol] 22 mmol/L 21 - 31 mmol/L [facility] Creatinine [Mass/Vol] 6.09 mg/dL High 0.70 - 1.30 mg/dL [facility] GFR/1.73 sq M.predicted CKD-EPI (S/P/Bld) [Vol rate/Area] 10 Low >=60 mL/min/1.73m2 [facility] Comment on above: Reported eGFR is bas ed on the CKD-EPI 2020 equation using creatinine, age, and sex. Glucose [Mass/Vol] 134 mg/dL High 70 - 99 mg/dL [facility] Interpretation and review of laboratory results Abnormal [facility] Osmolality Calc [Osmolality] 298 [facility] Potassium [Moles/Vol] 4.9 mmol/L 3.5 - 5.0 mmol/L [facility] Sodium [Moles/Vol] 134 mmol/L Low 135 - 145 mmol/L [facility] Comment on above: Results inconsistent with previous results Urea nitrogen [Mass/Vol] 49 mg/dL High 7 - 25 mg/dL [facility] Urea nitrogen/Creatinine [Mass ratio] 8 mg/mg [facility] CHEM 7 (LYTES,BUN,CREA,GLUC) on 05-16-2022 Anion gap [Moles/Vol] 17 mmol/L 7 - 17 mmol/L [facility] Chloride [Moles/Vol] 106 mmol/L 98 - 10 8 mmol/L [facility] CO2 [Moles/Vol] 22 mmol/L 21 - 31 mmol/L [facility] Creatinine [Mass/Vol] 5.23 mg/dL High 0.70 - 1.30 mg/dL [facility] GFR/1.73 sq M.predicted CKD-EPI (S/P/Bld) [Vol rate/Area] 13 Low >=60 mL/min/1.73m2 [facility] Comment on above: Reported eGFR is bas ed on the CKD-EPI 2020 equation using creatinine, age, and sex. Glucose [Mass/Vol] 116 mg/dL High 70 - 99 mg/dL [facility] Interpretation and review of laboratory results Abnormal [facility] Osmolality Calc [Osmolality] 305 [facility] Potassium [Moles/Vol] 4.6 mmol/L 3.5 - 5.0 mmol/L [facility] Sodium [Moles/Vol] 140 mmol/L 135 - 145 mmol/L [facility] Urea nitrogen [Mass/Vol] 42 mg/dL High 7 - 25 mg/dL [facility] Urea nitrogen/Creatinine [Mass ratio] 8 mg/mg [facility] EXTRA MICROon 05-16-2022 [facility] LT BLUE TOP TUBEon 2 [facility] LYTES (NA, K, CL) - URINE - RANDOMon 05-16-2022 Chloride (24H U) [Moles/Vol] 68 mmol/L [facility] Potassium (24H U) [Moles/Vol] 36.7 mmol/L [facility] Sodium (24H U) [Moles/Vol] 55 mmol/L [facility] The reference range has not been established for random urine specimens. The test result should be integrated into the clinical context for interpretation. [facility] MAGNESIUMon 05-16-2022 Interpretation and review of laboratory results Normal [facility] Magnesium [Mass/Vol] 1.7 mg/dL 1.6 - 2 .6 mg/dL [facility] NOVEL CORONAVIRUS PCROrdered By: Edson Candelario on 05-16-2022 SARS-CoV-2 (COVID-19) RNA ESTELITA+probe Ql (Unsp spec) Not detected NOT DETECTED [facility] Comment on above: [facility] Negative results do not [...] use authorization for use by authorized laboratories. [facility] No Panel Informationon 05-16 [facility] OSMOLALITY, URINEon 05-16-20 Interpretation and review of laboratory results Normal [facility] Osmolality (U) [Osmolality] 320 mosm/kg [facility] The reference range has not been established for random urine specimens. The test result should be integrated into the clinical context for interpretation. [facility] PROCALCITONINon 05-16-2022 Interpretation and review of laboratory results Normal [facility] Procalcitonin [Mass/Vol] 0.18 ng/mL <0.50 [facility] Comment on above: Procalcitonin is an [...] and trend procalcitonin in various clinical settings. [email or web address]?[email or web address]&action=[email or web address] Two common cutoffs associated with bacterial infections are as follows. Respiratory tract infections: >0.25 ng/mL Sepsis/septic shock: >0.5 ng/mL Procalcitonin should not be used alone as a diagnostic tool, however. All procalcitonin results should be interpreted in association with the patients clinical condition and all laboratory findings. [facility] PT,INR,PTTon 05-16-2022 aPTT Coag (PPP) [Time] 30.3 s [facility] INR Coag (Bld) [Relative time] 1.1 {INR} [facility] Interpretation and review of laboratory results Normal [facility] PT Coag (PPP) [Time] 14.1 s [facility] SARS-CoV-2 (COVID-19) RNA NA A+probe Ql (Unsp spec)Ordered By: Edson Candelario on 05-16-2022 Interpretation and review of laboratory results Normal [facility] TACROLIMUS LEVEL, TROUGH (HI E DRUG LEVEL)Ordered By: Mariama Nick on 05-16-2022 Interpretation and review of laboratory results Normal [facility] Tacrolimus (Bld) [Mass/Vol] 4.1 ng/mL Bone Marrow Transplant: 4.0-12.0, Therapeutic: 5.0-15.0 [facility] Method performed is a chemiluminescent microparticle immunoasssay on the [employer] i2000. The range is based on experience at [facility] and users should be aware that target concentrations vary widely depending on concomitant therapy, time post-transplant, and desired degree of immunosuppression. [facility] URINE PROTEIN/CREA RATIO, RA Smiley 05-16-2022 Creatinine (24H U) [Mass/Vol] 59.82 mg/dL [facility] Protein Unsp time (U) [Mass/Vol] 111 mg/dL [facility] Protein/Creatinine (U) [Mass ratio] 1.856 mg/g [facility] US for transplanted kidney l imitedon [...] Bladder: The bladder is decompressed with a Myres catheter. Abdomen: No ascites in the visualized [...] appearing vascular flow in the transplant kidney. [facility] Radiology Study observation (narrative) [facility] US for transplanted kidney l imitedOrdered By: Rosendo Matute on 05-16-2022 [facility] Work Phone: CBC AND ELECTRONIC DIFFon Basophils (Bld) [#/Vol] 10*3/uL 0.00 - 0.09 K/uL [facility] Basophils/100 WBC (Bld) 0.2 % [facility] Differential cell count method Nom (Bld) Electronic Differential [facility] Eosinophils (Bld) [#/Vol] 10*3/uL 0.00 - 0.48 K/uL [facility] Eosinophils/100 WBC (Bld) 0.0 % [facility] Erythrocyte distribution width (RBC) [Ratio] 12.8 % 10.9 - 14.3 % [facility] Hematocrit (Bld) [Volume fraction] 46.0 % 39.6 - 48.8 % [facility] Hemoglobin (Bld) [Mass/Vol] 14.6 g/dL 13.4 - 16.8 g/dL [facility] Immature granulocytes (Bld) [#/Vol] 0.07 10*3/uL <=0.08 [facility] Immature granulocytes/100 WBC (Bld) 0.4 % [facility] Interpretation and review of laboratory results Abnormal [facility] Lymphocytes (Bld) [#/Vol] 1.49 10*3/uL 0.83 - 3.57 K/uL [facility] Lymphocytes/100 WBC (Bld) 9.4 % [facility] MCH (RBC) [Entitic mass] 28.2 pg 26.1 - 33.3 pg [facility] MCHC (RBC) [Mass/Vol] 31.7 g/dL Low 31.9 - 36.5 g/dL [facility] MCV (RBC) [Entitic vol] 89.0 fL 79.0 - 94.5 fL [facility] Monocytes (Bld) [#/Vol] 1.45 10*3/uL High 0.24 - 0.93 K/uL [facility] Monocytes/100 WBC (Bld) 9.2 % [facility] Neutrophils (Bld) [#/Vol] 12.77 10*3/uL High 1.57 - 6.19 K/uL [facility] Nucleated RBC/100 WBC (Bld) [Ratio] 0.0 % <=0.2 /100 WBC [facility] Platelet mean volume (Bld) [Entitic vol] 9.9 fL 8.7 - 12.3 fL [facility] Platelets (Bld) [#/Vol] 250 10*3/uL 146 - 337 K/uL [facility] RBC (Bld) [#/Vol] 5.17 10*6/uL [facility] Segmented neutrophils/100 WBC (Bld) 80.8 % [facility] WBC (Bld) [#/Vol] 15.81 10*3/uL High 3.73 - 10 .10 K/uL [facility] CBC AUTO DIFFon 05-15-2022 BASO # 0.0 103/ul Normal 0.0-0.1 [facility] Comment on above: Performed By: #### C BC #### [facility] [address] [address] [address] Dwight Waters Basophils/100 WBC (Bld) 0.3 % Normal 0.2-2.0 [facility] Comment on above: Performed By: #### C BC #### [facility] [address] [address] [address] Dwight Waters EO # 0.1 103/ul Normal 0.0-0.7 [facility] Comment on above: Performed By: #### C BC #### [facility] [address] [address] [address] Dwight Waters Eosinophils/100 WBC (Bld) 0.8 % Critically low 0.9-7.0 [facility] Comment on above: Performed By: #### C BC #### [facility] [address] [address] [address] Dwight Waters Erythrocyte distribution width (RBC) [Ratio] 12.7 % Normal 11.0-15.0 [facility] Comment on above: Performed By: #### C BC #### [facility] [address] [address] [address] Dwight Waters Hematocrit (Bld) [Volume fraction] 43.5 % Normal 42.0-54.0 [facility] Comment on above: Performed By: #### C BC #### [facility] [address] [address] [address] Dwight Waters Hemoglobin (Bld) [Mass/Vol] 14.4 g/dL Normal 14.0-18.0 [facility] Comment on above: Performed By: #### C BC #### [facility] [address] [address] [address] Dwight Waters IG # 0.02 10e3/ul Normal 0.00-0.03 [facility] Comment on above: Performed By: #### C BC #### [facility] [address] [place] [address] Dr. Dwight Waters IG % 0.2 % Normal 0.0-0.5 [facility] Comment on above: Performed By: #### C BC #### [facility] [address] [place] [address] Dr. Dwight Waters LYMPH # 1.5 103/ul Normal 1.2-3.8 [facility] Comment on above: Performed By: #### C BC #### [facility] [address] [place] [address] Dr. Dwight Waters Lymphocytes/100 WBC (Bld) 12.5 % Critically low 20.5-60.0 [facility] Comment on above: Performed By: #### C BC #### [facility] [address] [place] [address] Dr. Dwight Waters MANUAL DIFF REQ NO Normal [facility] Comment on above: Performed By: #### C BC #### [facility] [address] [place] [address] Dr. Dwight Waters MCH (RBC) [Entitic mass] 28.6 pg Normal 25.9-34.0 [facility] Comment on above: Performed By: #### C BC #### [facility] [address] [place] [address] Dr. Dwight Waters MCHC (RBC) [Mass/Vol] 33.1 g/dL Normal 29.9-35.2 [facility] Comment on above: Performed By: #### C BC #### [facility] [address] [place] [address] Dr. Dwight Waters MCV (RBC) [Entitic vol] 86.3 fL Normal 80.0-94.[address] [facility] Comment on above: Performed By: #### C BC #### [facility] [address] [place] [address] Dr. Dwight Waters MONO # 1.0 103/ul Critically high 0.3-0.8 [facility] Comment on above: Performed By: #### C BC #### [facility] [address] [address] [address] Dwight Waters Monocytes/100 WBC (Bld) 8.2 % Normal 1.7-12.0 [facility] Comment on above: Performed By: #### C BC #### [facility] [address] [address] [address] Dwight Waters NEUT # 9.1 103/ul Critically high 1.4-6.5 [facility] Comment on above: Performed By: #### C BC #### [facility] [address] [address] [address] Dwight Waters Neutrophils/100 WBC (Bld) 78.0 % Critically high 43.0-75.0 [facility] Comment on above: Performed By: #### C BC #### [facility] [address] [place] [address] Dr. Dwight Waters Platelet mean volume (Bld) [Entitic vol] 9.8 fL Normal 9.5-13.5 [facility] Comment on above: Performed By: #### C BC #### [facility] [address] [address] [address] Dwight Waters PLT 251 103/ul Normal 150-[address] [facility] Comment on above: Performed By: #### C BC #### [facility] [address] [place] [address] Dr. Dwight Waters RBC 5.04 106/ul Normal 4.70-6.[address] [facility] Comment on above: Performed By: #### C BC #### [facility] [address] [place] [address] Dr. Dwight Waters WBC 11.6 103/ul Critically high 4.0-11.0 [facility] Comment on above: Performed By: #### C BC #### [facility] [address] [place] [address] Dr. Dwight Waters CHEM 6 (LYTES, BUN CREA)on 0 05-15-2022 Anion gap [Moles/Vol] 12 mmol/L 7 - 17 mmol/L [facility] Chloride [Moles/Vol] 105 mmol/L 98 - 10 8 mmol/L [facility] CO2 [Moles/Vol] 26 mmol/L 21 - 31 mmol/L [facility] Creatinine [Mass/Vol] 2.85 mg/dL High 0.70 - 1.30 mg/[facility] GFR/1.73 sq M.predicted CKD-EPI (S/P/Bld) [Vol rate/Area] 26 Low >=60 mL/min/1.73m2 [facility] Comment on above: Reported eGFR is bas ed on the CKD-EPI 2020 equation using creatinine, age, and sex. Potassium [Moles/Vol] 4.6 mmol/L 3.5 - 5.0 mmol/L [facility] Sodium [Moles/Vol] 138 mmol/L 135 - 145 mmol/L [facility] Urea nitrogen [Mass/Vol] 32 mg/dL High 7 - 25 mg/dL [facility] Urea nitrogen/Creatinine [Mass ratio] 11 mg[facility] ABD/PELVIS WO CONon 05-15 [...] transplanted kidney with moderate right-sided hydronephrosis. Atrophic [place] kidneys with moderate right-sided hydronephrosis. Multiple nonobstructive [...] transplanted kidney with moderate right-sided hydronephrosis. Atrophic [place] kidneys with moderate right-sided hydronephrosis. Multiple nonobstructive right renal calculi measuring up to 8 mm. FOLLOW-UP: Follow-up as clinically indicated. Electronically authenticated by: LYNDSAY JEAN Date: 2022-05-15 05:04 Normal [facility] SARS-CoV-2 (COVID-19) RNA ESTELITA+probe Ql (Unsp spec) Not detected Normal NOT DETECTED [facility] Comment on above: Result Comment: When [...] for this test is supported by the Form Setter of Health and Human Service's declaration that [...] used). Performed By: #### U RTPCR #### [facility] [address] [address] [address] Dwight Waters GLUCOSEon 05-15-2022 Glucose [Mass/Vol] 141 mg/dL High 70 - 99 mg/dL [facility] GOLD TOP TUBEon 05-15-2022 [facility] HEPATIC FUNCTION PANELon Albumin [Mass/Vol] 4.3 g/dL 3.5 - 5.0 g/dL [facility] ALP [Catalytic activity/Vol] 85 U/L 32 - 126 U/L [facility] ALT [Catalytic activity/Vol] 13 U/L 10 - 52 U/L [facility] AST [Catalytic activity/Vol] 15 U/L 10 - 39 U/L [facility] Bilirubin [Mass/Vol] 0.8 mg/dL <1.5 [facility] Bilirubin.direct [Mass/Vol] 0.2 mg/dL <0.3 [facility] Interpretation and review of laboratory results Normal [facility] Protein [Mass/Vol] 7.3 g/dL 6.4 - 8.3 g/dL [facility] LIPASEon 05-15-2022 Lipase [Catalytic activity/Vol] 8 U/L Low 11 - 82 U/L [facility] No Panel Informationon 05-15 Interpretation and review of laboratory results Abnormal [facility] PROF 14(COMP METB)on 022 Albumin [Mass/Vol] 3.8 g/dL Normal 3.4-5.0 [facility] Comment on above: Performed By: #### U RTPCR #### [facility] [address] [place] [address] Dr. Dwight Waters Albumin/Globulin [Mass ratio] 1.1 {ratio} Normal [facility] Comment on above: Performed By: #### U RTPCR #### [facility] [address] [place] [address] Dr. Dwight Waters ALP [Catalytic activity/Vol] 92 U/L Normal 46-116 [facility] Comment on above: Performed By: #### U RTPCR #### [facility] [address] [place] [address] Dr. Dwight Waters ALT [Catalytic activity/Vol] 25 U/L Normal 16-63 [facility] Comment on above: Performed By: #### U RTPCR #### [facility] [address] [place] [address] Dr. Dwight Waters Anion gap [Moles/Vol] 14.6 mmol/L Normal [facility] Comment on above: Performed By: #### U RTPCR #### [facility] [address] [address] [address] Dwight Waters AST [Catalytic activity/Vol] 17 U/L Normal 15-37 [facility] Comment on above: Performed By: #### U RTPCR #### [facility] [address] [address] [address] Dwight Waters Bilirubin [Mass/Vol] 0.6 mg/dL Normal 0.2-1.0 [facility] Comment on above: Performed By: #### U RTPCR #### [facility] [address] [address] [address] Dwight Waters Calcium [Mass/Vol] 9.9 mg/dL Normal 8.5-10.1 [facility] Comment on above: Performed By: #### U RTPCR #### [facility] [address] [place] [address] Dr. Dwight Waters Chloride [Moles/Vol] 106 mmol/L Normal 98-107 [facility] Comment on above: Performed By: #### U RTPCR #### [facility] [address] [address] [address] Dwight Waters CO2 [Moles/Vol] 24.2 mmol/L Normal 21.0-32.0 [facility] Comment on above: Performed By: #### U RTPCR #### [facility] [address] [address] [address] Dwight Waters Creatinine [Mass/Vol] 1.58 mg/dL Critically high 0.70-1.30 [facility] Comment on above: Performed By: #### U RTPCR #### [facility] [address] [address] [address] Dwight Waters EGFR-AF RWANDAN 56 mL/min/1.73m2 Critically low >=[address] [facility] Comment on above: Performed By: #### U RTPCR #### [facility] [address] [address] [address] Dwight Waters EGFR-NON AF RWANDAN 46 mL/min/1.73m2 Critically low >=[address] [facility] Comment on above: Performed By: #### U RTPCR #### [facility] [address] [address] [address] Dwight Waters Globulin (S) [Mass/Vol] 3.5 g/dL Normal [facility] Comment on above: Performed By: #### U RTPCR #### [facility] [address] [address] [address] Dwight Waters Glucose [Mass/Vol] 162 mg/dL Critically high 74-106 [facility] Comment on above: Performed By: #### U RTPCR #### [facility] [address] [address] [address] Dwight Waters Potassium [Moles/Vol] 3.8 mmol/L Normal 3.5-5.1 [facility] Comment on above: Performed By: #### U RTPCR #### [facility] [address] [address] [address] Dwight Waters Protein [Mass/Vol] 7.3 g/dL Normal 6.4-8.2 [facility] Comment on above: Performed By: #### U RTPCR #### [facility] [address] [address] [address] Dwight Waters Sodium [Moles/Vol] 141 mmol/L Normal 136-145 [facility] Comment on above: Performed By: #### U RTPCR #### [facility] [address] [address] [address] Dwight Waters Urea nitrogen [Mass/Vol] 22.0 mg/dL Critically high 7.0-18.0 [facility] Comment on above: Performed By: #### U RTPCR #### [facility] [address] [place] [address] Dr. Dwight Waters Urea nitrogen/Creatinine [Mass ratio] 13.9 mg/mg Normal [facility] Comment on above: Performed By: #### U RTPCR #### [facility] [address] [place] [address] Dr. Dwight Waters Portable XR Chest Viewson [...] chest. IMPRESSION IMPRESSION: No acute cardiopulmonary disease [facility] Radiology Study observation (narrative) [facility] Portable XR Chest ViewsOrder ed By: Vladislav Omer on 05-15-2022 [facility] URINE DIPSTICK; REFLEX MICRO SCOPY; REFLEX CULTURE PERFORMABLEon 05-15-2022 Appearance (U) Clear Clear [facility] Color (U) Yellow Yellow [facility] Glucose Test strip (U) [Mass/Vol] 100 mg/dL Abnormal Negative [facility] Interpretation and review of laboratory results Abnormal [facility] Ketones (U) [Mass/Vol] Negative Negative [facility] Leukocyte esterase Test strip Ql (U) Large Abnormal Negative [facility] Nitrite Ql (U) Negative Negative [facility] pH (U) 6.0 [pH] 5.0 - [facility] Protein (U) [Mass/Vol] 100 mg/dL Abnormal Negative [facility] RBC (U) [#/Vol] Large Abnormal Negative [facility] Specific gravity (U) [Rel density] 1.010 [facility] Urobilinogen (U) [Mass/Vol] 0.2 E.U./dL 0.2 E.U/dL, 1.0 E.U/dL [facility] URINE MICROSCOPIC WITH REFLE X TO CULTUREOrdered By: Rey Bro on 05-15-2022 Bacteria LM Ql (Urine sed) ABSENT ABSENT [facility] Epithelial cells.squamous LM Ql (Urine sed) ABSENT 1/hpf = 1+, 2-5/hpf = 2+, 0/hpf = 0+, ABSENT [facility] Interpretation and review of laboratory results Abnormal [facility] RBC LM.HPF (Urine sed) [#/Area] /[HPF] Abnormal 0 - 2 /HPF [facility] WBC LM.HPF (Urine sed) [#/Area] 10-20 Abnormal 0 - 5 /HPF [facility] CT ABD/PELVIS WO CONon 05-12 CT ABD/PELVIS WO CON Begin Addendum #[address] Lund 3:25 PM EST 05/11/2022. Begin Addendum #2 IMPRESSION below should also contain the followin. 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 The ek[place] kidneys are progressively atrophic bilaterally compared to [...] of 06/14/2020 are no longer present. The [place] distal right ureter is decompressed beyond this [...] with surgical history for renal graft and ek[place] right urinary drainage, as a discrete ureteroneocystostomy is not identified, and the graft may be draining via a ureteroureterostomy. Urology consultation recommended. 3. The ek[place] kidneys are bilaterally atrophic, with right renal sinus calcifications consistent with nonobstructing right ek[place] renal calculi up to 6 mm. Normal [facility] CBC AUTO DIFFon 05-11-2022 BASO # 0.1 103/ul Normal 0.0-0.[address] [facility] Comment on above: Performed By: #### U RTPCR #### [facility] [address] [place] [address] [address] Dwight Waters Basophils/100 WBC (Bld) 0.8 % Normal 0.2-2.0 [facility] Comment on above: Performed By: #### U RTPCR #### [facility] [address] [place] [address] [address] Dwight Waters EO # 0.2 103/ul Normal 0.0-0.[address] [facility] Comment on above: Performed By: #### U RTPCR #### [facility] [address] [place] [address] Dr. Dwight Waters Eosinophils/100 WBC (Bld) 2.5 % Normal 0.9-7.0 [facility] Comment on above: Performed By: #### U RTPCR #### [facility] [address] [place] [address] Dr. Dwight Waters Erythrocyte distribution width (RBC) [Ratio] 12.5 % Normal 11.0-15.0 [facility] Comment on above: Performed By: #### U RTPCR #### [facility] [address] [place] [address] Dr. Dwight Waters Hematocrit (Bld) [Volume fraction] 48.3 % Normal 42.0-54.0 [facility] Comment on above: Performed By: #### U RTPCR #### [facility] [address] [place] [address] Dr. Dwight Waters Hemoglobin (Bld) [Mass/Vol] 15.3 g/dL Normal 14.0-18.[address] [facility] Comment on above: Performed By: #### U RTPCR #### [facility] [address] [place] [address] Dr. Dwight Waters IG # 0.01 10e3/ul Normal 0.00-0.[address] [facility] Comment on above: Performed By: #### U RTPCR #### [facility] [address] [place] [address] Dr. Dwight Waters IG % 0.2 % Normal 0.0-0.[address] [facility] Comment on above: Performed By: #### U RTPCR #### [facility] [address] [place] [address] [address] Dwight Waters LYMPH # 1.9 103/ul Normal 1.2-3.[address] [facility] Comment on above: Performed By: #### U RTPCR #### [facility] [address] [place] [address] [address] Dwight Waters Lymphocytes/100 WBC (Bld) 29.8 % Normal 20.5-60.[address] [facility] Comment on above: Performed By: #### U RTPCR #### [facility] [address] [place] [address] [address] Dwight Waters MANUAL DIFF REQ NO Normal [facility] Comment on above: Performed By: #### U RTPCR #### [facility] [address] [place] [address] Dr. Dwight Waters MCH (RBC) [Entitic mass] 28.2 pg Normal 25.9-34.0 [facility] Comment on above: Performed By: #### U RTPCR #### [facility] [address] [place] [address] [address] Dwight Waters MCHC (RBC) [Mass/Vol] 31.7 g/dL Normal 29.9-35.[address] [facility] Comment on above: Performed By: #### U RTPCR #### [facility] [address] [place] [address] [address] Dwight Waters MCV (RBC) [Entitic vol] 89.1 fL Normal 80.0-94.[address] [facility] Comment on above: Performed By: #### U RTPCR #### [facility] [address] [place] [address] [address] Dwight Waters MONO # 0.6 103/ul Normal 0.3-0.[address] [facility] Comment on above: Performed By: #### U RTPCR #### [facility] [address] [place] [address] [address] Dwight Waters Monocytes/100 WBC (Bld) 9.0 % Normal 1.7-12.[address] [facility] Comment on above: Performed By: #### U RTPCR #### [facility] [address] [place] [address] Dr. Dwight Waters NEUT # 3.6 103/ul Normal 1.4-6.[address] [facility] Comment on above: Performed By: #### U RTPCR #### [facility] [address] [place] [address] Dr. Dwight Waters Neutrophils/100 WBC (Bld) 57.7 % Normal 43.0-75.[address] [facility] Comment on above: Performed By: #### U RTPCR #### [facility] [address] [place] [address] Dr. Dwight Waters Platelet mean volume (Bld) [Entitic vol] 9.9 fL Normal 9.5-13.[address] [facility] Comment on above: Performed By: #### U RTPCR #### [facility] [address] [place] [address] Dr. Dwight Waters PLT 249 103/ul Normal 150-[address] [facility] Comment on above: Performed By: #### U RTPCR #### [facility] [address] [place] [address] Dr. Dwight Waters RBC 5.42 106/ul Normal 4.70-6.[address] [facility] Comment on above: Performed By: #### U RTPCR #### [facility] [address] [place] [address] Dr. Dwight Waters WBC 6.3 103/ul Normal 4.0-11.[address] [facility] Comment on above: Performed By: #### U RTPCR #### [facility] [address] [place] [address] Dr. Dwight Waters ER URINE PROFILEon 2 Bilirubin Ql (U) Unable to perform testing due to color interference. Abnormal NEGATIVE [facility] Comment on above: Performed By: #### U RTPCR #### [facility] [address] [place] [address] Dr. Dwight Waters Clarity (U) TURBID Abnormal CLEAR [facility] Comment on above: Performed By: #### U RTPCR #### [facility] [address] [place] [address] Dr. Dwight Waters Color (U) RED Abnormal YELLOW [facility] Comment on above: Performed By: #### U RTPCR #### [facility] [address] [place] [address] Dr. Dwight Waters ERUAHJenna A micrscopic examination will be performed if indicated. Normal [facility] Comment on above: Performed By: #### U RTPCR #### [facility] [address] [place] [address] Dr. Dwight Waters Glucose Ql (U) Unable to perform testing due to color interference. Abnormal NEGATIVE [facility] Comment on above: Performed By: #### U RTPCR #### [facility] [address] [place] [address] Dr. Dwight Waters Hemoglobin Ql (U) Unable to perform testing due to color interference. Abnormal NEGATIVE [facility] Comment on above: Performed By: #### U RTPCR #### [facility] [address] [place] [address] Dr. Dwight Waters Ketones Ql (U) Unable to perform testing due to color interference. Abnormal NEGATIVE [facility] Comment on above: Performed By: #### U RTPCR #### [facility] [address] [place] [address] Dr. Dwight Waters LEUKOCYTES Unable to perform testing due to color interference. Abnormal NEGATIVE [facility] Comment on above: Performed By: #### U RTPCR #### [facility] [address] [place] [address] Dr. Dwight Waters Nitrite Ql (U) Unable to perform testing due to color interference. Abnormal NEGATIVE [facility] Comment on above: Performed By: #### U RTPCR #### [facility] [address] [place] [address] Dr. Dwight Waters pH (U) 6.5 [pH] Normal 5-[address] [facility] Comment on above: Performed By: #### U RTPCR #### [facility] [address] [place] [address] Dr. Dwight Waters SPEC GRAVITY 1.020 Normal 1.005-<=1.025 [facility] Comment on above: Performed By: #### U RTPCR #### [facility] [address] [place] [address] Dr. Dwight Waters UA PROTEIN Unable to perform testing due to color interference. Normal NEGATIVE/ TRACE [facility] Comment on above: Performed By: #### U RTPCR #### [facility] [address] [place] [address] Dr. Dwight Waters UR MICRO IND INDICATED Normal [facility] Comment on above: Performed By: #### U RTPCR #### [facility] [address] [place] [address] Dr. Dwigth Waters UROBILINOGEN Unable to perform testing due to color interference. Normal 0.2 - 1.0 [facility] Comment on above: Performed By: #### U RTPCR #### [facility] [address] [place] [address] Dr. Dwight Waters PROF 14(COMP METB)on 022 Albumin [Mass/Vol] 3.8 g/dL Normal 3.4-5.0 [facility] Comment on above: Performed By: #### C MP #### [facility] [address] [place] [address] Dr. Dwight Waters Albumin/Globulin [Mass ratio] 1.1 {ratio} Normal [facility] Comment on above: Performed By: #### C MP #### [facility] [address] [place] [address] Dr. Dwight Waters ALP [Catalytic activity/Vol] 106 U/L Normal 46-116 [facility] Comment on above: Performed By: #### C MP #### [facility] [address] [place] [address] Dr. Dwight Waters ALT [Catalytic activity/Vol] 30 U/L Normal 16-63 [facility] Comment on above: Performed By: #### C MP #### [facility] [address] [place] [address] Dr. Dwight Waters Anion gap [Moles/Vol] 11.7 mmol/L Normal [facility] Comment on above: Performed By: #### C MP #### [facility] [address] [place] [address] [address] Dwight Waters AST [Catalytic activity/Vol] 16 U/L Normal 15-37 [facility] Comment on above: Performed By: #### C MP #### [facility] [address] [place] [address] Dr. Dwight Waters Bilirubin [Mass/Vol] 0.6 mg/dL Normal 0.2-1.0 [facility] Comment on above: Performed By: #### C MP #### [facility] [address] [place] [address] Dr. Dwight Waters Calcium [Mass/Vol] 9.1 mg/dL Normal 8.5-10.1 [facility] Comment on above: Performed By: #### C MP #### [facility] [address] [place] [address] Dr. Dwight Waters CO2 [Moles/Vol] 27.4 mmol/L Normal 21.0-32.0 [facility] Comment on above: Performed By: #### C MP #### [facility] [address] [place] [address] Dr. Dwight Waters Creatinine [Mass/Vol] 1.18 mg/dL Normal 0.70-1.[address] [facility] Comment on above: Performed By: #### C MP #### [facility] [address] [place] [address] Dr. Dwight Waters EGFR-AF RWANDAN >60 Normal >=60 [facility] Comment on above: Performed By: #### C MP #### [facility] [address] [place] [address] Dr. Dwight Waters EGFR-NON AF RWANDAN >60 Normal >=[address] [facility] Comment on above: Performed By: #### C MP #### [facility] [address] [place] [address] Dr. Dwight Waters Globulin (S) [Mass/Vol] 3.6 g/dL Normal [facility] Comment on above: Performed By: #### C MP #### [facility] [address] [place] [address] Dr. Dwight Waters Glucose [Mass/Vol] 192 mg/dL Critically high 74-106 [facility] Comment on above: Performed By: #### C MP #### [facility] [address] [place] [address] Dr. Dwight Waters Potassium [Moles/Vol] 4.1 mmol/L Normal 3.5-5.1 [facility] Comment on above: Performed By: #### C MP #### [facility] [address] [place] [address] Dr. Dwight Waters Protein [Mass/Vol] 7.4 g/dL Normal 6.4-8.2 [facility] Comment on above: Performed By: #### C MP #### [facility] [address] [place] [address] Dr. Dwight Waters Sodium [Moles/Vol] 142 mmol/L Normal 136-145 [facility] Comment on above: Performed By: #### C MP #### [facility] [address] [place] [address] Dr. Dwight Waters Urea nitrogen [Mass/Vol] 17.0 mg/dL Normal 7.0-18.0 [facility] Comment on above: Performed By: #### C MP #### [facility] [address] [place] [address] Dr. Dwight Waters Urea nitrogen/Creatinine [Mass ratio] 14.4 mg/mg Normal [facility] Comment on above: Performed By: #### C MP #### [facility] [address] [place] [address] Dr. Dwight Waters URINE MICROSCOPIC ONLYon BACTERIA NONE SEEN Normal NONE SEEN [facility] Comment on above: Performed By: #### U RTPCR #### [facility] [address] [place] [address] Dr. Dwight Waters Bacteria identified Cx Nom (U) NOT INDICATED Normal [facility] Comment on above: Performed By: #### U RTPCR #### [facility] [address] [place] [address] Dr. Dwight Waters CAST NONE SEEN Normal NONE SEEN [facility] Comment on above: Performed By: #### U RTPCR #### [facility] [address] [place] [address] [address] Dwight Waters Crystals LM Nom (Urine sed) NONE SEEN Normal NONE SEEN [facility] Comment on above: Performed By: #### U RTPCR #### [facility] [address] [place] [address] Dr. Dwight Waters Epithelial cells LM Ql (Urine sed) RARE Normal NONE SEEN /RARE [facility] Comment on above: Performed By: #### U RTPCR #### [facility] [address] [place] [address] Dr. Dwight Waters MUCOUS NONE SEEN Normal NONE SEEN [facility] Comment on above: Performed By: #### U RTPCR #### [facility] [address] [place] [address] Dr. Dwight Waters RBC (U) [#/Vol] /uL Abnormal 0-2 [facility] Comment on above: Performed By: #### U RTPCR #### [facility] [address] [place] [address] Dr. Dwight Waters WBC NONE SEEN Normal NONE SEEN [facility] Comment on above: Performed By: #### U RTPCR #### [facility] [address] [place] [address] Dr. Dwight Waters K (Potassium)on 01-06-2020 Potassium [Moles/Vol] 4.4 mmol/L Normal 3.7-5.3 [facility] Comment on above: Performed By: #### K #### [facility] [address] [place] [address] Data Compiler: Kehinde Woodward MD Potassiumon 01-06-2020 Potassium [Moles/Vol] 4.4 mmol/L 3.7 - 5.3 mmol/L [facility] Work Phone: Hemoglobin and Hematocrit, B bridget 10-24-2019 Hematocrit (Bld) [Volume fraction] 23.6 % Low 40.7 - 50.3 % [facility], [place] Hemoglobin (Bld) [Mass/Vol] 7.3 g/dL Low 13 - 17 g/dL [facility], [place] Interpretation and review of laboratory results Abnormal [place], [place] Hgb/Hcton 10-24-2019 Hematocrit (Bld) [Volume fraction] 23.6 % Low 40.7-50.3 [facility] Comment on above: Performed By: #### H H #### [facility] [address] [place] [address] Data Compiler: Kehinde Woodward MD Hemoglobin (Bld) [Mass/Vol] 7.3 g/dL Low 13.0-17.0 [facility] Comment on above: Performed By: #### H H #### [facility] [address] [place] [address] Data Compiler: Kehinde Woodward MD Hemoglobinon 08-27-2019 Hemoglobin (Bld) [Mass/Vol] 7.5 g/dL Low 13.0-17.0 [facility] Comment on above: Performed By: #### H GB #### [facility] [address] [place], [place] [id number] Data Compiler: Kehinde Woodward MD Hemoglobin (Bld) [Mass/Vol] 7.5 g/dL Low 13 - 17 g/dL [place], [place] Interpretation and review of laboratory results Abnormal [place] Hemoglobinon 08-08-2019 Hemoglobin (Bld) [Mass/Vol] 8.3 g/dL Low 13.0-17.0 [facility] Comment on above: Performed By: #### H GB #### [address] [place] [place] [address] Data Compiler: Kehinde Woodward MD Hemoglobin (Bld) [Mass/Vol] 8.3 g/dL Low 13 - 17 g/dL [place], [place] Interpretation and review of laboratory results Abnormal [place] Hemoglobinon 08-04-2019 Hemoglobin (Bld) [Mass/Vol] 8.0 g/dL Low 13.0-17.0 [facility] Comment on above: Performed By: #### H GB #### [facility] [address] [place] [address] Data Compiler: Kehinde Woodward MD Hemoglobin A1Con 08-03-2019 HbA1c (Bld) [Mass fraction] % Low 4.8-5.9 [facility] Comment on above: Result Comment: The ADA and AACC recommend providing the estimated average glucose result to permit better patient understanding of their HBA1c result. Performed By: #### G LYHGB #### [facility] [address] [place] [address] Data Compiler: Kehinde Woodward MD Glucose [Mass/Vol] mg/dL mg/dL [place], [place] Comment on above: The ADA and AACC rec ommend providing the estimated average glucose result to permit better patient understanding of their HBA1c result. HbA1c (Bld) [Mass fraction] % Low 4.8 - 5.9 % [place], [place] Interpretation and review of laboratory results Abnormal [place] Hemoglobinon 08-01-2019 Hemoglobin (Bld) [Mass/Vol] 8.1 g/dL Low 13.0-17.0 [facility] Comment on above: Performed By: #### H GB #### [facility] [address] [place] [address] Data Compiler: Kehinde Woodward MD Hemoglobin (Bld) [Mass/Vol] 8.1 g/dL Low 13 - 17 g/dL [place], [place] Interpretation and review of laboratory results Abnormal [place] Hgb/Hcton 06-10-2019 Hematocrit (Bld) [Volume fraction] 24.3 % Low 40.7-50.3 [facility] Comment on above: Performed By: #### H H #### [facility] [address] [place] [address] Data Compiler: Kehinde Woodward MD Hemoglobin (Bld) [Mass/Vol] 7.4 g/dL Low 13.0-17.0 [facility] Comment on above: Performed By: #### H H #### [facility] [address] [place] [address] Data Compiler: Kehinde Woodward MD Hemoglobinon 06-01-2019 Hemoglobin (Bld) [Mass/Vol] 7.2 g/dL Low 13.0-17.0 [facility] Comment on above: Performed By: #### H GB #### [facility] [address] [place], [place] [id number] Data Compiler: Kehinde Woodward MD K (Potassium)on 01-14-2019 Potassium [Moles/Vol] 3.6 mmol/L Low 3.7-5.3 [facility] Comment on above: Performed By: #### K #### [facility] [address] [place], [place] [id number] Data Compiler: Kehinde Woodward MD Otheron 10-19-2018 IMPRESSION: 1. [...] characteristics determined by Toxicology Laboratory at [facility]. It has not been cleared or [...] Amitriptyline(50), Amphetamine(250), Atenolol(500), Barbiturates(1000), Benzoylecgonine(50), Buprenorphine(50), Bupropion(25), Caffeine(35187), Chlordiazepoxide(50), Chlorpheniramine(100), Chlorpromazine(50), Citalopram(100), Clonazepam(200), Cocaine(25), Codeine(200), [...] characteristics determined by Toxicology Laboratory at [facility]. It has not been cleared or [...] Amitriptyline(50), Amphetamine(250), Atenolol(500), Barbiturates(200), Benzoylecgonine(50), Buprenorphine(500), Bupropion(25), Caffeine(98769), Cannabinoids(THC)(50), Chlordiazepoxide(50), Chlorpheniramine(100), Chlorpromazine(50), Citalopram(100), Clonazepam(200), Cocaine(25), [...] 97.81 [degF] Steve Farrari MBBS Work Phone: [facility] 09-11-2023 10:31-0400 Diastolic blood pressure 66 mm[Hg] Stevemassiel Farrari MBBS Work Phone: [facility] 09-11-2023 10:31-0400 Heart rate 70 /min Steve Farrari MBBS Work Phone: [facility] 09-11-2023 10:31-0400 Respiratory rate 20 /min Steve Farrari MBBS Work Phone: [facility] 09-11-2023 10:31-0400 SaO2% (BldA) [Mass fraction] 91 % Steve Farrari MBBS Work Phone: [facility] 09-11-2023 10:31-0400 Systolic blood pressure 129 mm[Hg] Stevemassiel Farrari MBBS Work Phone: [facility] 09-10-2023 15:50-0400 Body mass index (BMI) [Ratio] 31.99 kg/m2 Stevemassiel Farrari MBBS Work Phone: [facility] 09-10-2023 15:50-0400 Body weight 92.67 kg Steve Yeison MBBS Work Phone: [facility] 09-02-2023 07:32-0400 Body height 170.2 cm Steve Yeison MBBS Work Phone: [facility] 08-28-2023 13:33-0400 Body height 170.2 cm Steve Yeison MBBS Work Phone: [facility] 08-28-2023 13:33-0400 Body mass index (BMI) [Ratio] 32.12 kg/m2 Steve Yeison MBBS Work Phone: [facility] 08-28-2023 13:33-0400 Body temperature 97.3 [degF] Steve Yeison MBBS Work Phone: [facility] 08-28-2023 13:33-0400 Body weight 93.03 kg Steve Yeison MBBS Work Phone: [facility] 08-28-2023 13:33-0400 Diastolic blood pressure 41 mm[Hg] Steve Yeison MBBS Work Phone: [facility] 08-28-2023 13:33-0400 Heart rate 116 /min Steve Yeison MBBS Work Phone: [facility] 08-28-2023 13:33-0400 Systolic blood pressure 106 mm[Hg] Steve Yeison MBBS Work Phone: [facility] 06-12-2023 14:50-0400 Body mass index (BMI) [Ratio] 33.8 kg/m2 Rebeca Olsen RETAIL DIRECTOR-CAD TECHNICIAN Work Phone: [facility] 06-12-2023 14:50-0400 Body temperature 97.3 [degF] Rebeca Olsen RETAIL DIRECTOR-CAD TECHNICIAN Work Phone: [facility] 06-12-2023 14:50-0400 Body weight 97.89 kg Rebeca Olsen RETAIL DIRECTOR-CAD TECHNICIAN Work Phone: [facility] 06-12-2023 14:50-0400 Diastolic blood pressure 77 mm[Hg] Rebeca Olsen RETAIL DIRECTOR-CAD TECHNICIAN Work Phone: [facility] 06-12-2023 14:50-0400 Heart rate 76 /min Rebeca Olsen RETAIL DIRECTOR-CAD TECHNICIAN Work Phone: [facility] 06-12-2023 14:50-0400 Systolic blood pressure 146 mm[Hg] Rebeca Olsen RETAIL DIRECTOR-CAD TECHNICIAN Work Phone: [facility] 01-16-2023 08:57-0500 Body height 170.2 cm [facility] Work Phone: [facility] 01-16-2023 08:57-0500 Body mass index (BMI) [Ratio] 33.66 kg/m2 [facility] Work Phone: [facility] 01-16-2023 08:57-0500 Body temperature 97.3 [degF] [facility] Work Phone: [facility] 01-16-2023 08:57-0500 Body weight 97.48 kg [facility] Work Phone: [facility] 01-16-2023 08:57-0500 Diastolic blood pressure 75 mm[Hg] [facility] Work Phone: [facility] 01-16-2023 08:57-0500 Heart rate 76 /min [facility] Work Phone: [facility] 01-16-2023 08:57-0500 Systolic blood pressure 142 mm[Hg] [facility] Work Phone: [facility] 09-10-2022 09:38-0400 Body height 170.2 cm Ryan Yepez MD Work Phone: [facility] 09-10-2022 09:38-0400 Body mass index (BMI) [Ratio] 33.67 kg/m2 Ryan Yepez MD Work Phone: [facility] 09-10-2022 09:38-0400 Body weight 97.52 kg Ryan Yepez MD Work Phone: [facility] 09-10-2022 09:38-0400 Diastolic blood pressure 83 mm[Hg] Ryan Yepez MD Work Phone: [facility] 09-10-2022 09:38-0400 Heart rate 64 /min Ryan Yepez MD Work Phone: [facility] 09-10-2022 09:38-0400 SaO2% (BldA) [Mass fraction] 96 % Ryan Yepez MD Work Phone: [facility] 09-10-2022 09:38-0400 Systolic blood pressure 129 mm[Hg] Ryan Yepez MD Work Phone: [facility] 07-07-2022 13:48-0400 Diastolic blood pressure 76 mm[Hg] Ryan Yepez MD Work Phone: [facility] 07-07-2022 13:48-0400 Heart rate 82 /min Ryan Yepez MD Work Phone: [facility] 07-07-2022 13:48-0400 SaO2% (BldA) [Mass fraction] 96 % Ryan Yepez MD Work Phone: [facility] 07-07-2022 13:48-0400 Systolic blood pressure 141 mm[Hg] Ryan Yepez MD Work Phone: [facility] 06-27-2022 13:32-0400 Body height 170.2 cm Ryan Yepez MD Work Phone: [facility] 06-27-2022 13:32-0400 Body mass index (BMI) [Ratio] 34.24 kg/m2 Ryan Yepez MD Work Phone: [facility] 06-27-2022 13:32-0400 Body temperature 98.6 [degF] Ryan Yepez MD Work Phone: [facility] 06-27-2022 13:32-0400 Body weight 99.16 kg Ryan Yepez MD Work Phone: [facility] 06-27-2022 13:32-0400 Diastolic blood pressure 78 mm[Hg] Ryan Yepez MD Work Phone: [facility] 06-27-2022 13:32-0400 Heart rate 77 /min Ryan Yepez MD Work Phone: [facility] 06-27-2022 13:32-0400 SaO2% (BldA) [Mass fraction] 95 % Ryan Yepez MD Work Phone: [facility] 06-27-2022 13:32-0400 Systolic blood pressure 121 mm[Hg] Ryan Yepez MD Work Phone: [facility] 06-27-2022 10:52-0400 Body height 170.2 cm Rena Brewster RN [facility] 06-27-2022 10:52-0400 Body mass index (BMI) [Ratio] 34.46 kg/m2 Rena Brewster RN [facility] 06-27-2022 10:52-0400 Body temperature 98.2 [degF] Rena Brewster RN [facility] 06-27-2022 10:52-0400 Body weight 99.79 kg Rena Brewster RN [facility] 06-27-2022 10:52-0400 Diastolic blood pressure 73 mm[Hg] Rena Brewster RN [facility] 06-27-2022 10:52-0400 Heart rate 78 /min Rena Brewster RN [facility] 06-27-2022 10:52-0400 Respiratory rate 20 /min Rena Brewster RN [facility] 06-27-2022 10:52-0400 SaO2% (BldA) [Mass fraction] 97 % Rena Brewster RN [facility] 06-27-2022 10:52-0400 Systolic blood pressure 135 mm[Hg] Rena Brewster RN [facility] 06-12-2022 14:23-0400 Body mass index (BMI) [Ratio] 34.59 kg/m2 Steve Yeison MBBS Work Phone: [facility] 06-12-2022 14:23-0400 Body temperature 97 [degF] Steve Yeison MBBS Work Phone: [facility] 06-12-2022 14:23-0400 Body weight 100.2 kg Steve Yeison MBBS Work Phone: [facility] 06-12-2022 14:23-0400 Diastolic blood pressure 66 mm[Hg] Steve Yeison MBBS Work Phone: [facility] 06-12-2022 14:23-0400 Heart rate 63 /min Steve Yeison MBBS Work Phone: [facility] 06-12-2022 14:23-0400 Systolic blood pressure 133 mm[Hg] Steve Yeison MBBS Work Phone: [facility] 05-20-2022 15:21-0400 Body temperature 97.9 [degF] Gian Villatoro MD Work Phone: [facility] 05-20-2022 15:21-0400 Diastolic blood pressure 64 mm[Hg] Gian Villatoro MD Work Phone: 1(463)672-443191 [address] 05-20-2022 15:21-0400 Heart rate 55 /min Gian Villatoro MD Work Phone: 3(683)113-793891 [address] 05-20-2022 15:21-0400 Respiratory rate 15 /min Gian Villatoro MD Work Phone: 8(510)043-654777 [place] [address] 05-20-2022 15:21-0400 SaO2% (BldA) [Mass fraction] 95 % Gian Villatoro MD Work Phone: 2(736)[phone] [place] [address] 05-20-2022 15:21-0400 Systolic blood pressure 145 mm[Hg] Gian Villatoro MD Work Phone: 6(505)840-383277 [place] [address] 05-19-2022 12:15-0400 Body mass index (BMI) [Ratio] 35.87 kg/m2 Gian Villatoro MD Work Phone: 1(992)784-922677 [place] [address] 05-19-2022 12:15-0400 Body weight 103.92 kg Gian Villatoro MD Work Phone: 9(591)369-205077 [place] [address] Comment on above: standing scale 05-16-2022 16:19-0400 Body height 170.2 cm Gian Villatoro MD Work Phone: 3(444)[phone] [place] [address] 10-19-2018 08:44-0500 BMI (Body Mass Index) 26.58 kg/m2 [facility] Work Phone: 10-19-2018 08:44-0500 BP Diastolic 76 mm[Hg] [facility] Work Phone: 10-19-2018 08:44-0500 BP Systolic 144 mm[Hg] [facility] Work Phone: 10-19-2018 08:44-0500 Height 172.7 cm [facility] Work Phone: 10-19-2018 08:44-0500 Pulse (Heart Rate) 92 /min [facility] Work Phone: 10-19-2018 08:44-0500 Pulse Oximetry 99 % [facility] Work Phone: 10-19-2018 08:44-0500 Respiratory Rate 16 /min [facility] Work Phone: 10-19-2018 08:44-0500 Weight 79.29 kg [facility] Work Phone: 10-12-2018 09:50-0500 BMI (Body Mass Index) 27.24 kg/m2 [facility] Work Phone: 10-12-2018 09:50-0500 Body Temperature 98.6 [degF] [facility] Work Phone: 10-12-2018 09:50-0500 BP Diastolic 80 mm[Hg] [facility] Work Phone: 10-12-2018 09:50-0500 BP Systolic 157 mm[Hg] [facility] Work Phone: 10-12-2018 09:50-0500 Height 169.5 cm [facility] Work Phone: 10-12-2018 09:50-0500 Pulse (Heart Rate) 94 /min [facility] Work Phone: 10-12-2018 09:50-0500 Weight 78.29 kg Alfredito Restrepo [facility] Work Phone: Encounters Encounter Date Encounter Type Care Provider Facility Start: 11-03-2023 End: 11-03-2023 ambulatory ZULY TANNERLATISHAOmer Not Available Start: 10-06-2023 ambulatory Angel Carpio [facility],PharmD Pharmacy Outpatient [facility] [place] Start: 10-06-2023 Patient encounter procedure Angel Carpio [facility],PharmD Pharmacy Outpatient [facility] [place] Start: 09-29-2023 [facility] Start: 09-24-2023 [facility] Start: 09-23-2023 [facility] Start: 09-15-2023 [facility] Start: 08-28-2023 End: 09-11-2023 Evaluation and management of inpatient STEVE S YEISON Facility:[facility] Start: 08-28-2023 End: 09-11-2023 Evaluation and management of inpatient Steve S Yeison MBBS Work Phone: [id number] Start: 08-28-2023 ambulatory STEVE S YEISON Facility:[facility] Start: 08-28-2023 End: 08-28-2023 Office outpatient visit 25 minutes Steve S Yeison MBBS Work Phone: [facility] Comment on above: Immunosuppressed sta tus (Primary Dx); Kidney replaced by transplant; Aftercare following organ transplant; High risk medication use; Other general symptoms and signs; Abnormal blood chemistry; Hypertension secondary to other renal disorders Start: 08-19-2023 ambulatory Meka rueda [facility] Pharm[facility] Outpatient [facility] [place] Start: 08-19-2023 Patient encounter procedure Meka Munoz [facility] Outpatient [facility] [place] Start: 06-12-2023 ambulatory REBECA Fisher ty:[facility] Start: 06-12-2023 End: 06-12-2023 Office outpatient visit 25 minutes Steve S Yeison MBBS Work Phone: [facility] Comment on above: 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) Start: 06-10-2023 ambulatory Maren Bar RPh,PharmD Pharmacy Outpatient [facility] [place] Start: 06-10-2023 Patient encounter procedure Maren Bar RPh,PharmD Pharmacy Outpatient [facility] [place] Start: 05-26-2023 [facility] Start: 04-28-2023 End: 04-29-[address] DOCTOR EVANS Facility:[facility] Start: 04-13-2023 End: 04-13-2023 ambulatory [facility] Start: 03-12-2023 ambulatory Angel Fete RPh,PharmD Pharmacy Outpatient RX [place] Start: 03-12-2023 Patient encounter procedure Angel Fete RPh,PharmD Pharmacy Outpatient [facility] [place] Start: 03-10-2023 ambulatory Angel Fete RPh,PharmD Pharmacy Outpatient [facility] [place] Start: 03-10-2023 Patient encounter procedure Angel Fete RPh,PharmD Pharmacy Outpatient [facility] [place] Start: 03-02-2023 End: 03-03-[address] DOCTOR EVANS Facility:[facility] Start: 01-16-2023 [facility] Start: 01-16-2023 End: 01-16-2023 Office outpatient visit 25 minutes Daisha Max DO Work Phone: [facility] Comment on above: Abnormal blood chemi stry [...] MD Work Phone: [facility] Comment on above: BPH with obstruction /lower urinary tract symptoms (Primary Dx); Encounter for screening for malignant neoplasm of prostate Start: 08-28-2022 End: 08-29-2022 ambulatory ROB BRUNO Facility:[facility] Start: 08-14-2022 End: 08-15-[address] DOCTOR EVANS Facility:[facility] Start: 07-07-2022 End: 07-07-2022 Patient encounter procedure Ryan Yepez MD Work Phone: [facility] Comment on above: Other hydronephrosis (Primary Dx); [...] MD Work Phone: [facility] Comment on above: Other hydronephrosis (Primary Dx) [...] 05-20-2022 Evaluation and management of inpatient Gian Villatoor MD Work Phone: [id number] Comment on above: FAYE (acute kidney in jury) Start: 05-15-2022 End: 05-15-[address] GEORGE ALEXANDER Facility:[facility] Start: 05-11-2022 End: 05-11-[address] GEORGE ALEXANDER Facility:[facility] Start: 03-14-2022 ambulatory Comfort Rivera [facility] Work Phone: Pharmacy Outpatient RX [place] Start: 03-14-2022 Patient encounter procedure Comfort Chinedu Rivera [facility] Work Phone: Pharmacy Outpatient [facility] [place] Start: 06-14-2021 End: 06-14-2021 ambulatory Comfort Chinedu Rivera [facility] Work Phone: [facility] Start: 06-14-2021 Patient encounter procedure Comfort Chinedu Rivera [facility] Work Phone: [facility] Start: 01-20-2020 End: 01-27-2020 Patient encounter procedure PEPE CASE Facility:[facility] Start: 01-06-2020 End: 01-07-2020 Patient encounter procedure [facility] Start: 01-06-2020 End: 01-06-2020 Subsequent hospital visit by physician [facility] Start: 10-24-2019 End: 10-25-2019 [facility] Start: 10-24-2019 End: 10-24-2019 Subsequent hospital visit by physician [facility] Start: 08-27-2019 End: 08-28-2019 Patient encounter procedure [facility] Start: 08-27-2019 End: 08-27-2019 Subsequent hospital visit by physician [facility] Start: 08-08-2019 End: 08-09-2019 Patient encounter procedure ROB PATINO [facility] Start: 08-08-2019 End: 08-08-2019 Subsequent hospital visit by physician [facility] Start: 08-03-2019 End: 08-04-2019 [facility] Start: 08-03-2019 End: 08-03-2019 Subsequent hospital visit by physician [facility] Start: 08-01-2019 End: 08-02-2019 [facility] Start: 08-01-2019 End: 08-01-2019 Subsequent hospital visit by physician [facility] Start: 06-10-2019 End: 06-11-2019 Patient encounter procedure RENA GUDINO [facility] Start: 06-01-2019 End: 06-02-2019 [facility] Start: 01-14-2019 End: 01-15-2019 Patient encounter procedure RENA GUDINO [facility] Start: 11-17-2018 End: 11-17-2018 Patient encounter procedure Melania Pantojaman [facility] Comment on above: Social [...] Start: 10-13-2018 End: 10-13-2018 Patient encounter procedure [facility] Comment on above: Reschedule Outside Medical Allan rds Request Start: 10-12-2018 End: 10-12-2018 Patient encounter procedure Sophie Raeann [facility] Comment on above: Alcoholic [...] Start: 10-05-2018 Patient encounter status Comfort Rivera [facility] Work Phone: [facility] Procedures Date Procedure Procedure Detail Performing [...] Other Other Start: 09-04-2023 Calcium ionized Nikunj Saeg MD Work Phone: Start: 09-04-2023 Radiologic exam [...] blood Crow Diaz MD Work Phone: Start: 5 End: 09-02-2023 Cytp slctv cell enhancement interpj [...] AURIS SCREEN BY PCR Carol Ann Capps RETAIL DIRECTOR-JOINER HELPER Work Phone: Start: 08-28-2023 CBC AND ELECTRONIC [...] above: Performed By: #### C MP #### [facility] [address] [place] [address] Dr. Dwight Waters Start: 07-07-2022 Rmvl nfros [...] Work Phone: Start: 05-17-2022 Assay of magnesium Milotn Bennett MD Work Phone: Start: 05-16-2022 Us [...] recipient S/P liver trans plant Comfort Rivera [facility] Work Phone: Start: 04-08-2020 H/O: liver recipient Liver tra nsplant recipient Comfort Rivera [facility] Work Phone: Start: 01-06-2020 Potassium [...] renal transplant -donor kidney transplant recipient [facility]fort [facility] Work Phone: Start: 06-10-2019 HEMOGLOBIN AND HEMAT OCRIT, BLOOD ROB KASMANI Start: 06-01-2019 Blood count hemoglobin ROB KASMANI Start: 03-22-2019 Lipid 1996 panel - S fabricio or Plasma Comfort Rivera [facility] Work Phone: Start: 01-14-2019 Potassium serum plasma/whole blood ROB KASMANI Start: 10-19-2018 End: 10-19-2018 Ultrasonography of abdomen Yovnai Orr Work Phone: Start: 10-12-2018 End: 10-12-2018 [...] End: 10-12-2018 Antibody cytomegalovirus cmv Yovani Mejias [facility] Work Phone: Start: 10-12-2018 End: 10-12-2018 Antibody dann-montes eb virus viral capsid vca Yovani Mejias [employer] Work Phone: Start: 10-12-2018 End: 10-12-2018 Antibody herpes smplx type 1 Yovani Orr Work Phone: Start: 10-12-2018 End: 10-12-2018 Antibody rubeola Yovani Mejias [facility] Work Phone: Start: 10-12-2018 End: 10-12-2018 Antibody varicella-zoster Yovani Mejias [facility] Work Phone: Start: 10-12-2018 End: 10-12-2018 Assay of ethanol Yovani Mejias [employer] Work Phone: Start: 10-12-2018 End: 10-12-2018 Assay of ferritin Yovani Orr Work Phone: Start: 10-12-2018 End: 10-12-2018 Assay of iron Yovani Mejias [employer] Work Phone: Start: 10-12-2018 End: 10-12-2018 Assay of parathormone Yovani Mejias [employer] Work Phone: Start: 10-12-2018 End: 10-12-2018 Assay of phosphatase alkaline Yovani Mejias [employer] Work Phone: Start: 10-12-2018 End: 10-12-2018 Bilirubin total Yovani Orr Work Phone: Start: 10-12-2018 End: 10-12-2018 Calcium total Yovani Mejias [employer] Work Phone: Start: 10-12-2018 End: 10-12-2018 CBC, EDIF, PLATELET [employer] [employer] Work Phone: Start: 10-12-2018 End: 10-12-2018 Creatinine blood Yovani Orr Work Phone: Start: 10-12-2018 End: 10-12-2018 Drug screening cannabinoids natural Yovani Mejias [facility] Work Phone: Start: 10-12-2018 End: 10-12-2018 Hepatitis a antibody haab Yovani Mejias [facility] Work Phone: Start: 10-12-2018 End: 10-12-2018 Hepatitis b core antibody hbcab total Yovani Mejias [facility] Work Phone: Start: 10-12-2018 End: 10-12-2018 Hepatitis b surf antibody hbsab Yovani Mejias [facility] Work Phone: Start: 10-12-2018 End: 10-12-2018 Hepatitis c antibody Yovani Mejias [facility] Work Phone: Start: 10-12-2018 End: 10-12-2018 Iaad ia hepatitis b surface antigen Yovani Mejias [facility] Work Phone: Start: 10-12-2018 End: 10-12-2018 Iaad ia hiv-1 ag w/hiv-1 & hiv-2 antbdy single [employer] Work Phone: Start: 10-12-2018 End: 10-12-2018 PSA screening Yovani Mejias [facility] Work Phone: Start: 10-12-2018 End: 10-12-2018 Thromboplastin time partial plasma/whole blood Yovani Orr Work Phone: Start: 10-12-2018 End: 10-12-2018 Assay of ethanol Yovani Mejias [facility] Work Phone: Start: 10-12-2018 End: 10-12-2018 Drug/substance definitive qual/quant nos 7/more [employer] [employer] Work Phone: Start: 10-12-2018 End: 10-12-2018 Protein [...] 08-31-2024 Screening for malignant neoplasm of lung [facility] Start: 06-17-2024 End: 06-17-2024 ambulatory [facility] Start: 06-17-2024 End: 06-17-2024 Patient encounter procedure [facility] Start: 03-22-2024 Fasting lipid profile LIPID SCREENING [facility] Start: 03-22-2024 Lipid panel [facility] Start: 01-15-2024 End: 01-15-2024 ambulatory [facility] Start: 01-15-2024 End: 01-15-2024 Patient encounter procedure [facility] Start: 12-08-2023 End: 09-07-2024 CT Chest WO contrast [facility] Work Phone: Start: 09-23-2023 End: 09-23-2023 ambulatory Infectious Diseases Care [facility] Start: 09-23-2023 End: 09-23-2023 Telemedicine consultation with patient 09/23/2023 4:00 PM EDT Telemedicine Infectious Diseases [facility] [address] [place] [address] Hakeem Alamo MD [address] [place] [address] Infectious Diseases Care [facility] Start: 09-15-2023 End: 09-10-2024 ITRACONAZOLE LEVEL [facility] Start: 08-25-2023 End: 08-25-2024 ALLOSCREEN RECIPIENT (POST TX PRA) ALLOSCREEN RECIPIENT (POST TX PRA) Lab Routine Kidney replaced by transplant Aftercare following organ transplant Immunosuppressed status High risk medication use Other general symptoms and signs Abnormal blood chemistry Expected: 08/25/2023, Expires: 08/25/2024 [facility] Comment on above: Expected: 08/25/2023, Expires: Start: 07-31-2023 Influenza vaccination [facility] Start: 06-12-2023 End: 06-12-2023 Patient encounter procedure 06/12/2023 Office Visit Transplant Surgery Steve Latham MBBS [address] [place] [address] [facility] Start: 03-11-2023 End: 03-11-2023 Telemedicine consultation with patient 03/11/2023 Telemedicine Urology Ryan Yepez MD [address] [facility] [address] [place] [address] [facility] Start: 01-16-2023 End: 01-16-2023 Patient encounter procedure 01/16/2023 Office Visit Transplant Surgery [facility] Start: 10-31-2022 End: 10-31-2022 Patient encounter procedure 10/31/2022 Office Visit Transplant Surgery Steve Latham MBBS [address] [place] [address] [facility] Start: 09-10-2022 End: 09-10-2023 PSA screening PSA, SCREENING Lab Routine BPH with obstruction/lower urinary tract symptoms Encounter for screening for malignant neoplasm of prostate Expected: 09/10/2022 (Approximate), Expires: 09/10/2023 [facility] Comment on above: Expected: 09/10/2022 (Approximate), Expi res: 09/10/2023 Start: 08-11-2022 End: 08-11-2022 Patient encounter procedure 08/11/2022 Office Visit UrologRyan Batista MD [address] [place] [address] [address] [place] [id number] [facility] Start: 07-31-2022 Influenza vaccination [facility] Start: 07-07-2022 End: 07-07-2022 Patient encounter procedure 07/07/2022 Office Visit Ryan Webster MD [address] [place] [address] [address] [place] [address] Urolog [facility] [place] Start: 07-07-2022 End: 07-07-2023 FLUORO IMAGING FOR UROLOGY [facility] Comment on above: Expected: 07/07/2022, Expires: 3 1 Occurrences starti ng 07/07/2022 until 07/07/2022 Start: 06-27-2022 End: 06-27-2022 Patient encounter procedure 06/27/2022 Office Visit Ryan Webster MD [address] [place] [address] [address] [place] [id number] [facility] Start: 06-27-2022 End: 06-27-2023 Basic metabolic 2000 panel - Serum or Plasma BASIC METABOLIC PANEL Lab Routine Other hydronephrosis Expected: 06/27/2022, Expires: 06/27/2023 [facility] Comment on above: Expected: 06/27/2022, Expires: 3 Start: 06-27-2022 End: 06-27-2022 Patient encounter procedure 06/27/2022 Appointment Computerized Tomography Scan Ryan Yepez MD [address] [facility] [address] [place] [address] Department of Radiology Start: 06-15-2022 End: 05-16-2023 CT Abdomen and Pelvis WO contrast CT ABDOMEN/PELVIS WITHOUT CONTRAST Imaging Routine FAYE (acute kidney injury) Expected: 06/15/2022 (Approximate), Expires: 05/16/2023 [facility] Work Phone: Comment on above: Expected: 06/15/2022 (Approximate), Expi res: 05/16/2023 Start: 06-12-2022 End: 06-12-2022 Patient encounter procedure 06/12/2022 Office Visit Transplant Surgery Steve Latham MBBS [address] [place] [address] [facility] Start: 06-11-2022 End: 06-11-2023 BK VIRUS DNA QN, PCR, PLASMA BK VIRUS DNA QN, PCR, PLASMA Lab Routine Kidney replaced by transplant Liver replaced by transplant Abnormal blood chemistry Expected: 06/11/2022, Expires: 06/11/2023 [facility] Comment on above: Expected: 06/11/2022, Expires: Start: 06-04-2022 End: 06-04-2022 Patient encounter procedure 06/04/2022 Office Visit Interventional Radiology [facility] Start: 10-18-2021 End: 10-18-2021 Patient encounter procedure 10/18/2021 Office Visit Transplant Surgery Steve Latham MBBS [address] [place] [address] [facility] Start: 07-31-2021 Influenza vaccination INFLUENZA VACCINE (#1) [facility] Start: 07-26-2021 End: 07-26-2021 Patient encounter procedure 07/26/2021 Office Visit Transplant Surgery [facility] Start: 2021 Prostate specific antigen measurement [facility] Start: 2021 Screening for malignant neoplasm of lung LUNG CANCER SCREENING [facility] Start: 2021 Zoster vaccine hzv live for subcutaneous use ZOSTER (SHINGLES) VACCINE (1 of 2) [facility] Start: 09-20-2020 Colonoscopy COLORECTAL CANCER SCREENING DISCUSSION [facility] Start: 09-20-2020 Screening for malignant neoplasm of colon [facility] Start: 07-31-2019 Influenza vaccination Flu vaccine (#1) [place] Start: 05-22-2019 Annual Wellness Visit (AWV) Annual Wellness Visit (AWV) [place] Start: 04-18-2019 End: 10-19-2019 Ultrasonography of abdomen US ABDOMEN RUQ/LIVER/GB Routine Cirrhosis of liver without ascites, unspecified hepatic cirrhosis type Expected: 04/18/2019 (Approximate), Expires: 10/19/2019 [facility] Work Phone: Comment on above: Expected: 04/18/2019 (Approximate), Expi res: 10/19/2019 Start: 01-25-2019 End: 01-25-2019 Ambulatory 01/25/2019 Office Visit Gastroenterology Christin Elizabeth, RETAIL DIRECTOR-CAD TECHNICIAN [address] [place] [address] Division of Gastroenterology and Hepatology Gavin Start: 11-19-2018 End: 11-19-2018 Ambulatory 11/19/2018 Appointment Pulmonary Diagnostics [facility] Start: 11-19-2018 End: 11-19-2018 [facility] Start: 10-19-2018 End: 10-19-2018 Ambulatory Ultrasound Jakob Start: 10-12-2018 End: 10-12-2019 Hemoglobin A1c/Hemoglobin.total mass fraction (Bld) HEMOGLOBIN A1C Routine Alcoholic cirrhosis, unspecified whether ascites present Pre-transplant evaluation for liver transplant Expected: 10/12/2018, Expires: 10/12/2019 [facility] Work Phone: Comment on above: Expected: 10/12/2018, Expires: 9 Start: 10-12-2018 End: 10-12-2019 TYPE AND SCREEN - NOT FOR TRANSFUSION TYPE AND SCREEN - NOT FOR TRANSFUSION Routine Alcoholic cirrhosis, unspecified whether ascites present Pre-transplant evaluation for liver transplant Expected: 10/12/2018, Expires: 10/12/2019 [facility] Work Phone: Comment on above: Expected: 10/12/2018, Expires: 9 Start: 07-31-2018 Influenza vaccination INFLUENZA VACCINE (#1) [facility] Work Phone: Start: 2011 Fasting lipid profile LIPID SCREENING [facility] Work Phone: Start: 2011 Lipid screen Lipid screen [place] Start: 1990 DTaP/Tdap/Td vaccine (1 - Tdap) DTaP/Tdap/Td vaccine (1 - Tdap) [place] Start: 1990 Hepatitis B Vaccine (1 of 3 - Risk Recombivax 3-dose series) Hepatitis B Vaccine (1 of 3 - Risk Recombivax 3-dose series) [place] Start: 1990 Third diphtheria, tetanus and acellular pertussis (DTaP) vaccination [facility] Start: 1990 Zoster vaccine hzv live for subcutaneous use ZOSTER (SHINGLES) VACCINE (1 of 2) [facility] Start: 1990 [facility] Start: 1989 Tetanus vaccination TETANUS [facility] Start: 1986 HIV screen HIV screen [place] Start: 02-17-1984 HIV screening HIV SCREENING DISCUSSION [facility] Work Phone: Start: 1983 COVID-19 VACCINE (1) COVID-19 VACCINE (1) [facility] Start: 1982 DTaP/Tdap/Td vaccine (1 - Tdap) DTaP/Tdap/Td vaccine (1 - Tdap) [place] Start: 1977 Pneumococcal 0-64 years Vaccine (1 of 3 - PCV13) Pneumococcal 0-64 years Vaccine (1 of 3 - PCV13) [place] Start: 1977 PNEUMOCOCCAL VACCINE SERIES (1 - PCV) PNEUMOCOCCAL VACCINE SERIES (1 - PCV) [facility] Start: 1977 [facility] Start: 02-17-1976 COVID-19 VACCINE (#1) COVID-19 VACCINE (#1) [facility] Start: 02-17-1976 [facility] Start: 1971 COVID-19 VACCINE (#1) COVID-19 VACCINE (#1) [facility] Start: 1971 Hepatitis B vaccination HEP B VACCINE (1 of 3 - 3-dose series) [facility] Start: 1971 Tetanus vaccination [facility] BK VIRUS DNA QN, PCR , PLASMA BK VIRUS DNA QN, PCR, PLASMA Lab Routine Kidney replaced by transplant Liver replaced by transplant Abnormal blood chemistry 06/12/2022 3:38 PM EDT [facility] CALCULI, URINARY (KIDNEY STONE) CALCULI, URINARY (KIDNEY STONE) Fluids Routine 05/19/2022 8:16 AM EDT [facility] Work Phone: CANNABINOIDS, QUANT (URINE)THC CONFIRMATION CANNABINOIDS, QUANT (URINE)THC CONFIRMATION Routine Alcoholic cirrhosis, unspecified whether ascites present ESRD (end stage renal disease) on dialysis Pre-transplant evaluation for liver transplant 10/12/2018 12:57 PM EST [facility] Work Phone: End: 09-10-2024 CHEM 6 (LYTES, BUN CREA) [facility] EBV VCA IGG AB EBV VCA IGG AB R outine Alcoholic cirrhosis, unspecified whether ascites present ESRD (end stage renal disease) on dialysis Pre-transplant evaluation for liver transplant 10/12/2018 12:57 PM [facility] Work Phone: Fungus identified in Unspecified specimen by Culture [facility] HLA TYPING (SOLID ORGAN) HLA TYPING (SOLID ORGAN) Routine Alcoholic cirrhosis, unspecified whether ascites present ESRD (end stage renal disease) on dialysis Pre-transplant evaluation for liver transplant 10/12/2018 12:57 PM [facility] Work Phone: HSV 1 AND 2 IGG ANTIBODY HSV 1 AND 2 IGG ANTIBODY Routine Alcoholic cirrhosis, unspecified whether ascites present ESRD (end stage renal disease) on dialysis Pre-transplant evaluation for liver transplant 10/12/2018 12:57 PM [facility] Work Phone: 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 specific culture [facility] PLACEMENT NEPHROSTOM Y CATHETER PERCUTANEOUS W/ IMAGE GUIDANCE PLACEMENT NEPHROSTOMY CATHETER PERCUTANEOUS W/ IMAGE GUIDANCE Imaging Routine Hydronephrosis due to obstruction of ureteral orifice FAYE (acute kidney injury) 05/17/2022 11:08 AM EDT [facility] HI POST VOID RESIDUAL HI POST VO ID RESIDUAL HI - OFFICE PERFORMED Routine BPH with obstruction/lower urinary tract symptoms Ordered: 09/10/2022 [facility] Comment on above: Ordered: 09/10/2022 PTH INTACT PTH INTACT Routi ne Alcoholic cirrhosis, unspecified whether ascites present ESRD (end stage renal disease) on dialysis Pre-transplant evaluation for liver transplant 10/12/2018 12:57 PM [facility] Work Phone: RUBEOLA IGG AB (IMMU NE STATUS) RUBEOLA IGG AB (IMMUNE STATUS) Routine Alcoholic cirrhosis, unspecified whether ascites present ESRD (end stage renal disease) on dialysis Pre-transplant evaluation for liver transplant 10/12/2018 12:57 PM [facility] Work Phone: End: 09-10-2024 TACROLIMUS LEVEL, TROUGH (PRE DRUG LEVEL) [facility] VARICELLA IGG AB (IM M STATUS) VARICELLA IGG AB (IMM STATUS) Routine Alcoholic cirrhosis, unspecified whether ascites present ESRD (end stage renal disease) on dialysis Pre-transplant evaluation for liver transplant 10/12/2018 12:57 PM EST [facility] Work Phone: Payers Date Payer Category Payer Unknown [id number] 2019 Unknown [facility] [id number] 2019-Present [id number] 2018 Medicaid MEDICAID [facility] DEPT OF JOB xxxxxxxxxxxx 2018-Present [phone] [address] [place] [address] xxxxxxxxxxxx [id number] 2018 Medicaid MEDICAID MEDICAI D [id number] 2018-Present [address] [place] [address] [id number] .[id number] 2018 Medicaid [id number] .[id number] 2018 Medicare MEDICARE MEDICAR E PART A AND B xxxxxxxxxxx 2018-Present [phone] [address] [address] [place] [address] xxxxxxxxxxx [id number] .[id number] 2018 Medicare [id number] 2018 Medicare MEDICARE MEDICAR E A AND B [id number] 2018-Present [address] [place] [address] [id number] .[id number] 2018 Medicare [id number]. 1.13.172.2.7.3 .874703.315 1971 Unknown [id number] 2.16.840.1.129684.3.579.2.173 1971 Unknown [id number] 2.16.840.1.441314.3.579.2.173 1971 Unknown [id number] 2.16.840.1.302925.3.579.2.173 1971 Unknown [id number] 2.16.840.1.799877.3.579.2.173 1971 Unknown [id number] 2.16.840.1.432832.3.579.2.173 1971 Unknown [id number] 2.16.840.1.662292.3.579.2.173 1971 Unknown [id number] 2.16.840.1.431408.3.579.2.173 1971 Unknown [id number] 2.16.840.1.423185.3.579.2.173 1971 Unknown [id number] 2.16.840.1.993979.3.579.2.647 1971 Unknown [id number] 2.16.840.1.153452.3.579.2.593 1971 Unknown [id number] 2.16.840.1.380339.3.579.2.593 1971 Unknown [id number] 2.16.840.1.866631.3.579.2.593 1971 Unknown [id number] 2.16.840.1.431104.3.579.2.593 1971 Unknown [id number] 2.16.840.1.232936.3.579.2.593 1971 Unknown [id number] 2.16.840.1.959097.3.579.2.593 1971 Unknown [id number] 2.16.840.1.569793.3.579.2.593 1971 Unknown [id number] 2.16.840.1.625058.3.579.2.593 1971 Unknown [id number] 2.16.840.1.358668.3.579.2.593 1971 Unknown [id number] 2.16.840.1.808523.3.579.2.593 1971 Unknown [id number] 2.16.840.1.740655.3.579.2.593 1971 Unknown [id number] 2.16.840.1.882416.3.579.2.593 1971 Unknown [id number] 2.16.840.1.501366.3.579.2.593 1971 Unknown [id number] 2.16.840.1.826023.3.579.2.593 1971 Unknown [id number] 2.16.840.1.103196.3.579.2.593 1971 Unknown [id number] 2.16.840.1.603646.3.579.2.594 1971 Unknown [id number] 2.16.840.1.499756.3.579.2.594 1971 Unknown [id number] 2.16.840.1.727830.3.579.2.594 1971 Unknown [id number] 2.16.840.1.900508.3.579.2.594 1971 Unknown [id number] 2.16.840.1.738727.3.579.2.594 1971 Unknown [id number] 2.16.840.1.035284.3.579.2.594 1971 Unknown [id number] 2.16.840.1.088290.3.579.2.594 1971 Unknown [id number] 2.16.840.1.639725.3.579.2.594 1971 Unknown [id number] 2.16.840.1.187329.3.579.2.594 1971 Unknown [id number] 2.16.840.1.785510.3.579.2.125 9 1959 Medicaid [id number] 1958 Medicare [id number] Social History Date Type Detail Facility Start: 07-19-2018 End: 10-19-2018 Tobacco smoking status NHIS Former smoker [facility] Start: 07-19-1988 End: 05-14-2018 History of tobacco use Current smoker [facility] Work Phone: Start: 07-19-1988 End: 05-14-2018 History of tobacco use Cigarette Smoker [facility] Work Phone: Start: 10-19-2018 End: 09-26-2023 Cigarettes smoked current (pack per day) - Reported [facility] Work Phone: End: 07-19-1994 History of tobacco use Chews Tobacco [facility] Work Phone: Start: 1970 Sex Assigned At Not on file [facility] Work Phone: Start: 11-03-2018 Alcohol intake 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-dr 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 of alcohol (finding) [place] Start: 06-22-2018 Alcohol Comment Hx of alcoholism [place], [place] Start: 11-03-2018 End: 09-26-2023 Alcohol intake No [place] Start: 07-19-2018 Tobacco use and exposure Former user [facility] Start: 09-06-2020 End: 09-26-2023 Alcohol intake Ex-drinker (finding) [facility] Start: 07-19-2018 Alcohol Comment stopped 05/14/2018 [facility] Start: 05-05-2022 End: 01-16-2023 Exposure to SARS-CoV-2 (event) Not sure [facility] Start: 07-07-2018 Gender identity Identifies as male gender (finding) [facility] Start: 01-16-2022 Sexual orientation Heterosexual (scooby kc) [facility] Medical Equipment Procedure Code Equipment Code Equipment Original Text Equipment Identifier Dates [id number] Start: 05-23-2020 [id number] Start: 04-12-2020 [id number], [id number] FDA Start: 05-17-2022 Comment on above: Description: Implant time-out completed by intra-procedural staff including this RN, valve technician, and performing physician. The following was [...] ; Prograf 0.2 MG Contact Info: Specialty ([place]) [phone] [facility] [phone] [facility] [phone] [facility] [phone] Bedside Delivery ([facility]) [phone] [facility] RX OUTREACH ADVANCED: Call Information: Date and Time of Contact: 10/23/2023 2:00 PM Method of Contact: By Phone Contact Type: Prescriptions Contactor: [facility] Contactee: Patient Contact Outcome: Left message and Call back later Shipping/Pickup: Medication Name: Mycophenolate 360mg and Prograf 0.2mg Contact Info: Specialty ([place]) [phone] [facility] [phone] [facility] [phone] [facility] [phone] Bedside Delivery ([facility]) [phone] documented in this encounter [facility] Miscellaneous Notes Pt discharged [...] oxygen during the night. pt will pick up worker his oxygen from [employer] [facility], 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 This [...] Patient seen ambulating in the velazquez with TOLL GATE TENDER. Patient was mildly short of breath on [...] & HR 114. Messaged Mainor Loomis, via [employer] secure chat, Temp 100.8. His tylenol order [...] short period of time. 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 Episode of [...] Critical Care Medicine Message Mainor Loomis, via [employer] secure chat, Good evening, just an FYI, [...] Stay: 5 days Impression & Recommendations: George Styels is a 53 y.o. male with a [...] short period of time. 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 This morning, [...] [address] Loera here also (hand launderer) Dr. Diaz aware of pt's increased oxygen [...] Medicine-Pediatrics, PGY-2 Mr. Styles was admitted to [address] [place] [address]. On admission to [facility], from home a [...] station when available. documented in this encounter [facility] 09-11-2023 History of Present illness Narrative Provided follow-up emotional and spiritual support. Patient shared about rosemary of discharge and looking forward to seeing family Inspector Rough Castings provided: - Supportive presence - Active listening - Validation of feelings/emotions Patient encouraged to request a wire stockkeeper as needed. Chaplains are available in-house 24 hours a day and 7 days a week. For urgent matters in [facility], please page [phone]. If the request is not urgent, please enter a consult. Consults are responded to within 24 hours. Senior Staff Inspector Rough Castings Angie Singh Mdiv, [facility] Kirk [phone] [email or web address] 22/06 On-call Kirk: [phone] 22/06 Pager ,[facility], and Brock Maciel Pager [phone] 09/11/23 2424 Clinical Encounter Type Visited With Patient Visit Type Follow-up Pastoral Time Spent 15 min Referral Other (See Comment) (rounding) Spiritual Assessment Spiritual Observation Spirituality helpful Emotional Observation Coping well Hope Observation Specific hope focus Support Observation By Family Interventions Provided Active listening;Supportive presence Facilitated Verbalization of feelings Explored Expectations Material Handling Warehouse Supervisor Education Material Handling Warehouse Supervisor Service Available Yes Educated Patient Plan of Care Continue Visiting PRN Images from the original note were not included. [facility] Note: Non-Verbal Med Rec [facility] received the following discharge prescription(s): Total cost is $0. I have reviewed the Discharge Rx Reconciliation Report. The discharge prescription(s) will be delivered to the patient on 09/11/2023. Dimitrios Gurrola RPh,PharmD Specialty ([place]) [phone] [facility] [phone] [facility] Bedside Delivery [phone] [facility] [phone] [facility] Bedside Delivery [phone] [place] [phone] [facility] Bedside Delivery [phone] [place] [phone] [place] [phone] Internal Medicine Daily Progress Note Patient: George Styles, 1970, [id number] Physician: Evan Kelly MD, PGY-1, TM1 service Subjective/Interval History: Patient continues to require oxygen overnight for desaturations. With insurance limitations, only accepting agency to provide home oxygen backed out. 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 - continue home aspirin 81mg daily, [...] 5.05 (H) 11/19/2018 Kevin Sage MD, SERA Plastic Surgery Assistant of Clinical Medicine [facility] Images from the original note were not included. Final Discharge Planning and Transportation Final Discharge Planning Discharge Disposition: Home Services at Discharge: Outpatient clinical services (ie: lab draws, transfusions, injectables) (Home Oxygen by [facility]) Selected Continued Care - Admitted Since 08/28/2023 Durable Medical Equipment Coordination complete. 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 Addendum [phone] [facility] notified this CM they are out of patient's insurance area and will not be able to service this patient at time of discharge. Provider notified. Addendum [phone] Dr Kelly called [facility] spoke to Lynn and she said they are willing to accept patient if the patient would drive to the [place] office and pick up worker the supplies. Patient is [...] Lora Colón RN, MSN, CCM, CMCN Clinical Piano Bench Assembler- [facility] Transplant #[phone] Department of Pharmacy Transplant Note Patient: George [...] dose adjustment Name: Matt Kramer RPh,Frankie Phone: [phone] Date/Time: 09/10/2023 11:33 AM This CM sent referral via [employer] for O2 concentrator to [facility] Start date today Timer set for [employer] [facility] Addendum [phone] One accepting company reserved in [address] [place] [address] Lora Colón RN, MSN, CCM, CMCN Clinical Piano Bench Assembler- [facility] Transplant #[phone] NUTRITION FOLLOW-UP Nutrition Plan of Care: 1. Continue current diet order. 2. No oral supplements warranted at this time. 3. Monitor for significant weight changes. Monitor GI, skin integrity. 4. Monitor and encourage po intakes with goal of average po being 75-100%. 5. technical data analyst to follow. ___ Met with patient today [...] time. Will continue to monitor. RHIANNON BirminghamR Pager:[phone] Transplant Infectious Disease (Team 3) Progress Note [...] sign off. Please Epic message or page [phone] with questions. 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 - continue home aspirin 81mg daily, [...] to follow. Please Epic message or page [phone] with questions. 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 - continue home aspirin 81mg daily, holding atorvastatin 20mg daily Gout: continue home allopurinol 200mg daily BPH: continue home flomax 0.4mg daily DVT PPX: SQH Code Status: Full Code Disposition: Pending clinical course. Anticipate eventual discharge home. Discussed with team and attending, Kevin Sage MD, on rounds. 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 - continue home aspirin 81mg daily, [...] 5.05 (H) 11/19/2018 Kevin Sage MD, SERA Plastic Surgery Assistant of Clinical Medicine [facility] Transplant Infectious Disease [...] to follow. Please Epic message or page [phone] with questions. Ann Marie Haskins MD PGY-4, [...] he continues to improve. Please message via [employer] secure chat or page with any questions or concerns. Evan White DO Plastic Surgery Assistant Division of Infectious Disease Transplant Infectious Disease [...] to follow. Please Epic message or page [phone] with questions. Evan White DO Transplant Infectious Diseases Images from the original note were not included. Pulmonary/Critical Care Medicine Daily Progress Note Reason for Consultation: bronch for infectious workup Requesting Physician: Dr. Sage CURRENT HOSPITALIZATION: Admit Date: [facility]20[facility] 9 days Impression 1. Acute [...] and interpreted reviewed the radiographic data in [facility]. 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 - continue home aspirin 81mg daily, [...] 5.05 (H) 11/19/2018 Kevin Sage MD, MADISONN Plastic Surgery Assistant of Clinical Medicine [facility] Images from the original note were not included. Pulmonary/Critical Care Medicine Daily Progress Note Reason for Consultation: bronch for infectious workup Requesting Physician: Dr. Sage CURRENT HOSPITALIZATION: Admit Date: 08/28/2023 [facility] Hospital LOS: 8 days Impression 1. [...] and interpreted reviewed the radiographic data in [facility] Acute Occupational Therapy Evaluation Prior to [...] Assessment: Transfer Assessment: Sit to Stand Transfer [place] Level: Sit->Stand: independent Skilled Intervention/Details: Sit->Stand: x1 from EOB, x1 from toilet Stand to Sit Transfer [place] Level: Stand->Sit: independent Skilled Intervention/Details: Stand->Sit: x1 to toilet, x1 to EOB Functional Mobility: Functional Mobility [place] Level: Functional Mobility/Gait: independent Ambulation Distance (Feet): 20 Skilled Intervention/Details - Functional Mobility/Gait: pt performed functional mobility to/from RR w/ no overt LOB Outcome Score(s): CURRENT [facility] Daily Activity Inpatient Short Form Putting on/Taking Off Lower Body Clothin - A Little Assistance Bathin - A Little Assistance Toiletin - A Little Assistance Putting on/Taking Off Upper Body Clothin - No Assistance Groomin - No Assistance Eatin - No Assistance CURRENT [facility] Activity Raw Score: 21 CURRENT [facility] Activity Functional Limitation/Modifier: 32.79% Currently Impaired in [...] Acute Physical Therapy Evaluation Prior to Admission [facility] score(s): PRIOR LEVEL AM-PAC Mobility Raw [...] Intact Mobility Assessment: Supine to Sit Mobility [place] Level: Supine->Sit: modified independence Bed Features/Set-up: Supine->Sit: Head of bed elevated Sit to Supine Mobility [place] Level: Sit->Supine: not tested Balance: Sitting Balance [...] environment. Transfer Assessment: Sit to Stand Transfer [place] Level: Sit->Stand: independent Skilled Intervention/Details: Sit->Stand: From EOB x 2 without difficulty. Stand to Sit Transfer [place] Level: Stand->Sit: independent Assistive Device: Stand->Sit: armed chair Skilled Rationale: Verbal cues, Positioning Gait/Functional Mobility: Gait Assessment [place] Level: Gait: stand-by assist Assistive Device: Gait: rollator Ambulation Distance (Feet): 400 Gait Deviations Identified: decreased grace, decreased gait speed Gait Skilled Rationale: verbal, upright posture, increase step length, increase foot clearance Skilled Intervention/Details - Gait: Reasonable foot clearnce without loss of balance but endorsing dyspnea as 6-7/10. Stairs: Stairs Assessment 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 - continue home aspirin 81mg daily, [...] 5.05 (H) 11/19/2018 Kevin Sage MD, SERA Plastic Surgery Assistant of Clinical Medicine [facility] Transplant Infectious Disease [...] to follow. Please Epic message or page [phone] with questions. Evan White DO Transplant Infectious Diseases Images from the original note were not included. 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 - continue home aspirin 81mg daily, [...] P 450 system Kevin Sage MD, SERA Plastic Surgery Assistant of Clinical Medicine [facility] ERT Note: [...] [facility] Brief plan of [...] [facility] Transplant Infectious Disease [...] to follow. Please Epic message or page [phone] with questions. 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 - continue home aspirin 81mg daily, [...] 5.05 (H) 11/19/2018 Kevin Sage MD, SERA Plastic Surgery Assistant of Clinical Medicine [facility] [employer] [facility] Comprehensive [facility]plant [...] Lora Colón RN, MSN, CCM, CMCN Clinical Piano Bench Assembler- R10 Transplant #[phone] Made introductory visit with patient. Provided emotional and spiritual support. Patient shared about: - Source of Rosemary: Camping/Fishing/Family - Spirituality/Mormon Affiliation: raised Caodaism - Family Support/history - Experience with illness/hospital course - Hopes for healing/future Inspector Rough Castings provided: - Supportive presence - Active listening - Validation of feelings/emotions - Pledged prayer Patient encouraged to request a wire stockkeeper as needed. Chaplains are available in-house 24 hours a day and 7 days a week. For urgent matters in [facility], please page [phone]. If the request is not urgent, please enter a consult. Consults are responded to within 24 hours. Senior Staff Inspector Rough Castings Angie Singh Mdiv, [facility] Kirk [phone] [email or web address] 22/06 On-call [place]: [phone] 22/06 Pager ,BS, and Brock Maciel Pager [phone] 09/02/23 1117 Clinical Encounter Type Visited With Patient Visit Type Introduction Pastoral Time Spent 15 min Referral Other (See Comment) (rounding) Spiritual Assessment Spiritual Observation Spirituality helpful Emotional Observation Coping well Hope Observation Specific hope focus Support Observation By Family Interventions Provided Active listening;Supportive presence Facilitated Verbalization of feelings Explored Expectations Material Handling Warehouse Supervisor Education Material Handling Warehouse Supervisor Service Available Yes Educated Patient Outcomes Patient Outcomes Reduced distress Plan of Care Continue Visiting PRN NUTRITION RISK SCREENING NOTE Nutrition Plan of Care: 1. Continue current diet order. 2. No oral supplements warranted at this time. 3. Monitor for significant weight changes. Monitor GI and skin integrity. 4. Monitor and encourage po intakes with goal of average po being 100%. 5. technical data analyst to follow. George Styles is a 53 y.o. 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 His post-transplant course was noteworthy for nephrostomy tube (05/17/2022-09/10/2022) due to concern for ureteral stone. He presents as a direct admission for fever, cough, for infectious workup. Pt unavailable and information obtained via chart review Back Line Cook Screening Pt's appetite is good. Pt with [...] with meds Food Allergies reviewed:Shellfish Cultural or Mormon Restrictions/Preferences: None GI: Last Bowel Movement: 09/01/23 [...] time. Will continue to monitor. 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 - continue home aspirin 81mg daily, [...] as outlined above. Kevin Sage MD Pager [phone] Summary: Pharmacy Med Rec Department of Pharmacy [...] 0 Provider: Zuly Bruno NP [place] [facility] [place] Other Comments: Patient reported his Last Home Dose of mycophenolate & tacrolimus was on 08/28/23 at 0900. Patient reported he was taking Bactrim and benzonatate for fevers and a cough he was having. Please feel free to contact me with any further questions. Name: Heidy Chatman Phone #: [phone] Date/Time: 09/01/2023 2:01 PM Time Spent: 15 minutes Associated attestation - Matt Kramer RPh,PharmD - 09/01/2023 2:28 PM EDT Department of Pharmacy Admission Medication Reconciliation Note Patient: George Styles Room/Bed: 1062/A I have reviewed the home medication list with the Machine Puller Over. All changes to the home medication list have been updated in [facility]. Updated BECK TENDER Med List: Prior to Admission Medications Prescriptions [...] questions. Name: Matt Kramer RPh,PharmD Phone #: [phone] Date/Time: 09/01/2023 2:28 PM Transplant Infectious Disease [...] crypto antigen, EBV PCR -follow pending histo, [id number] labs These recommendations were discussed with the primary team. Transplant ID (Team 3) will continue to follow. Please Epic message or page [phone] with questions. 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 - continue home aspirin 81mg daily, [...] 5.05 (H) 11/19/2018 Kevin Sage MD, SERA Plastic Surgery Assistant of Clinical Medicine [facility] Discharge Planning Patient [...] Yes Name and Contact information: Gian Styles ([phone]) Reviewed and Updated in Demographics? : Yes [...] patient on Anticoagulation? : No [id number] [place] [address] - [address] [facility] [address] [phone] Piano Assembler Does the patient or advertising sales representative express financial concerns? : No Employed?: Disabled Coping/Stress Concerns about patient s coping and stress?: No Concerns about patient s caregiver s coping and stress?: No Values and Beliefs Cultural or christian practices that may impact discharge planning and/or [...] Plan 1. Identified self and role as Piano Bench Assembler. 2. Confirmed and updated demographics and treatment team. 3. Piano Bench Assembler will continue to follow with medical team/pt for any other additional discharge needs. Kasandra DON RN [facility] [phone] *Please note I am float and work Thursday and Thursday every other week. Please call [phone] for assist in my absence. 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 - continue home aspirin 81mg daily, atorvastatin 20mg daily Gout: continue home allopurinol 200mg daily BPH: continue home flomax 0.4mg daily DVT PPX: SQH Code Status: Full Code Disposition: Pending clinical course. Anticipate eventual discharge home. Discussed with team and attending, Kevin Sage MD, on rounds. Signed, Laurel Serrano MD, PhD documented in this encounter [facility] 09-10-2023 Hospital Discharge instructions Laurel Serrano [...] sleep doctor. You will need to pick up worker the oxygen concentrator when [...] on healthy foods. documented in this encounter [facility] 09-01-2023 Consult note Associated Order (s): IP CONSULT TO PULMONOLOGY Pulmonary Medicine Inpatient Consultation Reason for Consultation: bronch for infectious workup Requesting Physician: Dr. Sage Pulmonary Attending Physician: Dr. Diaz CURRENT HOSPITALIZATION: Admit Date: 08/28/2023 [facility] Hospital LOS: 4 days Impression/Recommendations: George [...] Recommendations: - Plan to bronch tomorrow morning. NPO@IL, order placed - would repeat HIV, last [...] short period of time. 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 Other histories as documented in the [...] had any ill contacts. He traveled to [place] to [facility] [facility] May. REVIEW OF SYSTEMS A complete [...] Surgeon: Enzo Heart DO; Location: [facility] INTERVENTIONAL RADIOLOGY (VIR) LIVER TRANSPLANT, ORTHOTOPIC N/A 04/12/2020 Laterality: N/A; Surgeon: LU Palma; Location: [facility] SAME DAY SURGERY MAIN OR KIDNEY TRANSPLANT W/O ALLAKAKET NEPHRECTOMY N/A 04/12/2020 Laterality: N/A; Surgeon: LU Palma; Location: [facility] SAME DAY SURGERY MAIN OR OTHER SURGICAL [...] Alamo MD I can be reached via [employer] secure message (preferred) or Pager #[phone] documented in this encounter [facility] 08-28-2023 History and physical note Images from the original note were not included. Internal Medicine Admission History & Physical Patient: George Styles, 1970, [id number] Physician: Aric Turner MD, PGY1, Pager #[phone], PR service Date of face to face patient [...] So he went to see the transplant prop and effects designer. He was found elevated Cr and asked [...] Appetite is ok now. Urine is about 8832-3280 ml every day. 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 - continue aspirin 81mg daily, atorvastatin [...] Pierson, Luisa Steven, Renee Rivera, Daisha Max Plate Finisher: José Miguel Garnica All Txt: 04/13/2020 (Kidney), [...] results found for: CYCLOSPORIN , CYCLOSPORIN2 , [id number] , CYCLORAND No results found for: SIROLIMUS [...] Rest as above. Kevin Sage MD Pager [phone] documented in this encounter [facility] 08-28-2023 History of Present illness Narrative Images from the original note were not included. 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 Plate Finisher: Anayeli Burt Date of Liver Transplant: 04/13/2020 (Kidney), 04/13/2020 (Liver) 3 years 4 months post Liver/Kidney Transplant Primary Disease: Hypertensive Nephrosclerosis Transplant Design Printer Balloon: Erma Roe/ Daisha Max Primary Care physician: [...] and faMOTIdine === None Specified Preferred Lab: [facility] Change in lab frequency / new [...] every 12 hours. ADDITIONAL INFORMATION: None Specified, [id number] [place] [address] - [address] [facility] [address] [address] [facility] [address] [facility] [address] [facility][id number] [place] [address] [address] [facility] [address] [facility] [address] [facility] Jakob [facility]gett, [facility] [address] [address] ROS and SCREEN: Chest Pain: negative Cough: [...] PHYSICIAN: I saw George Styles at the [facility] on 08/28/2023. Patient is a 53 y.o. 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 Steve Latham MD air cargo ground crew supervisor Division of Nephrology [facility] documented in this encounter [facility] 08-28-2023 Instructions Mainor Busby RN - 08/28/2023 2:15 PM EDT - Admission for fevers, cough, and night sweats documented in this encounter [facility] 08-19-2023 History of Present illness Narrative [facility]REACH [facility]ANC[facility]: Call Information: Date and Time of Contact: 08/19/2023 2:52 PM Method of Contact: By Phone Contact Type: Prescriptions Contactor: [facility] OP Contactee: Patient Shipping/Pickup: Medicare B Refill?: No Medication Name: Tacro 0.5mg Delivery Method: Air Delivery Location: Home Signature Required: No Mailing/Pickup Date: 08/25/2023 Shipping Address: [address] [place] [address] Contact Info: Specialty ([place]) [phone] [facility] [phone] [facility] [phone] [facility] [phone] Bedside Delivery ([facility]) [phone] documented in this encounter [facility] 06-12-2023 History of Present illness Narrative Images from the original note were not included. George Styles is a 53 y.o. 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 No longer follows with a local prop and effects designer. History of Present Illness: Since George was [...] and lab results. Rebeca Olsen MSN, RN, RETAIL DIRECTOR-BC, CCTN Certified Nurse Practitioner Comprehensive Transplant Center [facility] [address] [facility] [address] documented in this encounter [facility] 06-12-2023 Instructions JEANNA Hess - 06/12/2023 3:00 PM EDT No change in immunosuppression. documented in this encounter [facility] 06-10-2023 History of Present illness Narrative [facility]REACH [facility]: Call Information: Method of Contact: By Phone Contact Type: Prescriptions Contactor: [facility] OP Contactee: Patient Contact Outcome: Left message Shipping/Pickup: Medication Name: Mycophenolate sod 180 mg Contact Info: Specialty ([place]) [phone] Jakob [phone] [facility] [phone] David [phone] Bedside Delivery ([facility]) [phone] [facility]REACH [facility]: Call Information: Date and Time of Contact: 06/12/2023 9:43 AM Method of Contact: By Phone Contact Type: Prescriptions Contactor: [facility] OP Contactee: Patient Contact Outcome: Left message and Follow-up Shipping/Pickup: Medicare B Refill?: No Medication Name: Myco 180 Contact Info: Specialty ([place]) [phone] [facility] [phone] [facility] [phone] David [phone] Bedside Delivery ([facility]) [phone] [facility] RX OUTREACH ADVANCED: Call Information: Date and Time of Contact: 06/12/2023 10:08 AM Method of Contact: By Phone Contact Type: Prescriptions Contactor: [facility] OP Contactee: Patient Shipping/Pickup: Medicare B Refill?: No Medication Name: Mycophenolate 180mg DR Delivery Method: Air Delivery Location: Home Signature Required: No Mailing/Pickup Date: 06/17/2023 Shipping Address: [address] [place] [address] Contact Info: Specialty ([place]) [phone] Jakob [phone] [facility] [phone] David [phone] Bedside Delivery ([facility]) [phone] documented in this encounter [facility] 04-13-2023 Note [place] Cardiology - [facility] Subjective George Styles is a 53 [...] Required: No Mailing/Pickup Date: 03/16/2023 Shipping Address: [address] [place] [address] Contact Info: Specialty ([place]) [phone] Jakob [phone] [facility] [phone] David [phone] Bedside Delivery ([facility]) [phone] [facility] RX OUTREACH ADVANCED: Call Information: [...] Required: No Mailing/Pickup Date: 03/19/2023 Shipping Address: [address] [place] [address] [address] Contact Info: Specialty ([place]) [phone] [facility] [phone] [facility] [phone] David [phone] Bedside Delivery ([facility]) [phone] documented in this encounter [facility] 03-10-2023 History of Present illness Narrative [facility] OUTREACH ADVANCED: Call Information: Date and Time of Contact: 03/10/2023 12:00 PM Method of Contact: By Phone Contact Type: Prescriptions Contactor: [facility] OP Contactee: Patient Contact Outcome: Left message and Call back later Shipping/Pickup: Medication Name: Mycophenolate ; Tacrolimus Contact Info: Specialty ([place]) [phone] [facility] [phone] [facility] [phone] David [phone] Bedside Delivery ([facility]) [phone] documented in this encounter [facility] 03-10-2023 History of Present illness Narrative [facility] RX OUTREACH ADVANCED: Call Information: Date and Time of Contact: 03/10/2023 12:00 PM Method of Contact: By Phone Contact Type: Prescriptions Contactor: [facility] OP Contactee: Patient Contact Outcome: Left message and Call back later Shipping/Pickup: Medication Name: Mycophenolate ; Tacrolimus Contact Info: Specialty ([place]) [phone] [facility] [phone] [facility] [phone] David [phone] Bedside Delivery ([facility]) [phone] [facility] RX OUTREACH ADVANCED: Call Information: Date and Time of Contact: 03/12/2023 10:32 AM Method of Contact: By Phone Contact Type: Prescriptions Contactor: [facility] OP Contactee: Patient Contact Outcome: Left message Shipping/Pickup: Medication Name: Mycophenolate sodium (MYFORTIC) 180 MG Tab tacrolimus 0.5 mg Contact Info: Specialty ([place]) [phone] Jakob [phone] [facility] [phone] David [phone] Bedside Delivery ([facility]) [phone] [facility] History of Present illness Narrative -Referring Provider for today's consult: Daisha Max DO -Primary Care Provider: Zuly Bruno History of Present Illness George Styles is a 52 y.o. male who presents to the [facility] Transplant Hepatology Clinic today for follow-up of [...] Surgeon: Enzo Heart DO; Location: [facility] INTERVENTIONAL RADIOLOGY (VIR) LIVER TRANSPLANT, ORTHOTOPIC N/A 04/12/2020 Laterality: N/A; Surgeon: LU Palma; Location: [facility] SAME DAY SURGERY MAIN OR KIDNEY TRANSPLANT W/O ALLAKAKET NEPHRECTOMY N/A 04/12/2020 Laterality: N/A; Surgeon: LU Palma; Location: [facility] SAME DAY SURGERY MAIN OR OTHER SURGICAL [...] 0.3 12/29/2022 Explant Pathology Pathologic Diagnosis A. [place] liver, orthotopic liver transplant resection (1458 gram): [...] A/P with IV contrast (06/27/2022): 1. Both ekuk kidneys are atrophic with improvement in right-sided [...] frequent nighttime urination, etc). Daisha Max DO Plastic Surgery Assistant Gastroenterology, Hepatology and Nutrition [facility] Pager: [phone] Images from the original note were not included. 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 Plate Finisher: Anayeli Burt Date of Liver Transplant: 04/13/2020 (Kidney), 04/13/2020 (Liver) 2 years, 8 months post Liver/Kidney Transplant Primary Disease: Hypertensive Nephrosclerosis Transplant Design Printer Balloon: Steve Latham Primary Care physician: Zluy Bruno combined liver/kidney transplant from a Donation [...] levels: No results found for: CYCLOSPORIN, CYCLOSPORIN2, [id number], CYCLORAND No components found for: CYCLOSPORINE, 2HR [...] hours. ADDITIONAL INFORMATION: None Specified [id number] [place] [address] - [address] [facility] [address] [address] [facility] [address], [address] [facility] [address] [id number] [place] [address] [address] [facility] [address] [facility] [address] [facility] Jakob [address], [place] [address] [facility] [address] ROS and SCREEN: Chest Pain: negative Cough: [...] ADDRESS WITH PHYSICIAN: documented in this encounter [facility] 01-16-2023 Instructions José Miguel Garnica RN - 01/16/2023 9:40 AM EST - Labs Every 2 months - Discuss night time urination with your PCP - Schedule Colonoscopy through PCP - Follow up in 1 year documented in this encounter [facility] 09-10-2022 History of Present illness Narrative [...] and no hydronephrosis. Some reflux up the ekuk right ureter but good drainage of both transplant and ekuk ureter to the bladder. Nephrostomy tube was [...] transplant, orthotopic (N/A, 04/12/2020); kidney transplant w/o ekuk nephrectomy (N/A, 04/12/2020); and placement nephrostomy catheter [...] Negative for , diarrhea, constipation Genitourinary: See MOAPA Neurological: Negative for headaches. Lymph/Heme: Negative for [...] x 4, Normal strength. No edema. Skin: [place], warm, and dry. There are no rashes [...] and no hydronephrosis. Some reflux up the ekuk right ureter but good drainage of both transplant and ekuk ureter to the bladder. Nephrostomy tube was [...] documented in this encounter [facility] 07-07-2022 History of Present illness Narrative Patient [...] assisted off the table and escorted to redevelopment manager where they made a follow up. Associated [...] to have transplant ureter with anastomosis to ekuk right ureter. Nephrostogram without filling defects and no hydronephrosis. Some reflux up the ekuk right ureter but good drainage of both transplant and ekuk ureter to the bladder. Nephrostomy tube was [...] documented in this encounter [facility] 06-27-2022 History of Present illness Narrative UROLOGY [...] transplant, orthotopic (N/A, 04/12/2020); kidney transplant w/o ekuk nephrectomy (N/A, 04/12/2020); and placement nephrostomy catheter [...] Negative for , diarrhea, constipation Genitourinary: See MOAPA Neurological: Negative for headaches. Lymph/Heme: Negative for [...] x 4, Normal strength. No edema. Skin: [place], warm, and dry. There are no rashes [...] yo male with a DDRT to the [facility] in 2019. Nephrostomy tube placed 05/17 [...] bag if needed. documented in this encounter [facility] 06-27-2022 History and physical note Patient was evaluated in clinic as a nurse visit. Please refer to Rena Brewster's note. [facility] Work Phone: 06-27-2022 History and physical note Patient was evaluated in clinic as a nurse visit. Please refer to Rena Brewster's note. documented in this encounter [facility] 06-27-2022 History of Present illness Narrative TEACHING REGARDING TX NEPH COMPLETED-NEPH TUBE SITE DRY AND INTACT-CLEAR YELLOW URINE IN THE BAG-INSTRUCTED ABOUT FLUSHING, BAG CHANGING ETC. NUMEROUS QUESTIONS ASKED AND ANSWERED-VERBALIZED UNDERSTANDING documented in this encounter [facility] 06-18-2022 Note EXAMINATION: CT ABD/ PELVIS [...] mass or enlargement. KIDNEYS: Marked atrophy of ekuk kidneys. Transplant right pelvic kidney with percutaneous [...] authenticated by: MÓNICA JIMENEZ Date: 2022-06-18 13:53 [facility] 06-12-2022 Instructions Anayeli Christianson RN - 06/12/2022 3:21 PM EDT Do not take apart/disrupt nephrostomy tube system. Call Interventional Radiology and/or on-call transplant nurse [phone] for instruction if need to flush (clot or decreased flow). Take cipro 500mg, one tablet, twice per day for 14 days documented in this encounter [facility] 06-12-2022 History of Present illness Narrative Images from the original note were not included. 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 Plate Finisher: Anayeli Burt Date of Liver Transplant: 04/13/2020 (Kidney), 04/13/2020 (Liver) 2 year, 1 months post Liver/Kidney Transplant Primary Disease: Hypertensive Nephrosclerosis Transplant Design Printer Balloon: Steve Latham Primary Care physician: Zuly Bruno [...] kidney stone in renal graft at [facility]. Percutaneous Neph Tube placed Images from the original note were not included. Nursing Assessment In Clinic (see Clinic Prep Sheet for additional information) Patient is accompanied to clinic today by: self Did patient require a wheelchair or medical transport for appointment: no Did front desk admin confirm current address and insurance information is [...] AND PHARMACY: None Specified [id number] [place] [id number] - [address] [facility] [address] [address] [facility] [address] [facility] [address] [id number] [place] [address] [address] [facility] [address] [facility] [address] [facility]ob [address], [place] [address] [facility] [address] ROS and SCREEN: Chest Pain: negative Cough: negative SOB: negative Abd Pain: negative Nausea: positive Vomiting: negative Diarrhea: negative Constipation: negative Dysuria: positive Edema: negative Tremors: negative Headaches: negative Wound issues: negative Pt has neph tube w clear yellow urine. States he had a small clot that he dislodged QUESTIONS OR CONCERNS TO ADDRESS WITH PHYSICIAN: I saw George Styles at the [facility] on 06/12/2022. Patient is a 52 y.o. 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 Steve Latham MD air cargo ground crew supervisor Division of Nephrology [facility] documented in this encounter [facility] 06-04-2022 Instructions TATI GROVE - 06/04/2022 11:04 AM EDT Thank you for joining us for your neph tube follow up. We recommend routine exchange every 8-10 weeks. Please reach out at [phone] when it is time to set your next routine exchange. Thank you IR clinic documented in this encounter [facility] 06-04-2022 History of Present illness Narrative [...] exchange. Verbalized understanding. documented in this encounter [facility] 05-20-2022 Note Formatting of this n [...] time of his discharge. Leon Cook RN [facility] 05-20-2022 Miscellaneous Notes Patient discharged. AVS [...] provide teaching before his discharge Leon RN #[id number] Leon Cook RN Afternoon assessment completed at [...] Interdisciplinary Rounds/Family Conf Outcome: Ongoing Discussed with [facility] re: possible urine culture performed at [...] with questions. Evan Byrd MD Urology, PGY-2 #[id number] I certify that this patient requires inpatient [...] Kallie Lorenzana RN documented in this encounter [facility] 05-20-2022 Note Formatting of this n [...] discharge/transition of care. Outcome: Adequate for Discharge [facility] 05-20-2022 Note Formatting of this n ote might be different from the original. Anne Dillard MD R10 Rm 1006 Jensen George Please let's have a clear order on how the nephrostomy site dressing need to be changed when the patient goes home so we provide teaching before his discharge Leon RN #[id number] Leon Cook RN [facility] 05-20-2022 History of Present illness Narrative Images from the original note were not included. [facility] Note: [facility] the following discharge prescription(s): Medication reconciliation was completed with comparison to discharge reconciliation report. The prescription(s) will be delivered to the patient's bedside on 05/20/22. Total cost is $0. Yanira Her RPh,PharmD Specialty ([place]) [phone] Jakob [phone] [facility] [phone] David [phone] [place] [phone] Bedside Delivery ([facility]) [phone] Attending I saw George Styles at the [facility] on 05/19/2022. I saw and [...] Evan Bennett MD 650 mg at 05/18/22 1634 allopurinol (ZYLOPRIM) tablet 100 mg 100 mg [...] Daily Progress Note Patient: George Styles, 1970, [id number] Physician: Liam Julian MD, PGY-3, Pager #[phone], [id number] Subjective/Interval History: No acute events overnight. Passed [...] Saldana MD Division of Hospital Medicine Pager [phone] Attending I saw George Styles at the [facility] on 05/18/2022. 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 Daya Saldana MD (Peggy) Division of Hospital Medicine Pager [phone] Internal Medicine Daily Progress Note Patient: George Styles, 1970, [id number] Physician: Nishant Gamez MD, PGY2, Pager #[phone], [id number] Subjective/Interval History: Worsening creatinine this morning with [...] MD (Peggy) Division of Hospital Medicine Pager [phone] Attending I saw George Styles at the [facility] on 05/17/2022. I saw and [...] of chart and discussion with treatment team, Piano Bench Assembler has not identified needs at this time. [...] follow. Introduced self and role of the wire stockkeeper to patient. Provided emotional and spiritual support and the patient responded by sharing their experience and discussed the following: - Spirituality/Mormon Affiliation: As a kid attended [employer] but not a strong identity now - Family support - pt's brothers live close by Inspector Rough Castings provided: - Supportive presence - Active listening - Validation of feelings/emotions Patient encouraged to request a wire stockkeeper as needed. Chaplains are available in-house 24 hours a day and 7 days a week. For urgent matters in [facility], please page [phone]. If the request is not urgent, please enter a consult. Consults are responded to within 24 hours. Angie Singh Mdiv, [facility] Trans[facility] [place] [address] Inspector Rough Castings [facility] Inspector Rough Castings Kirk [phone] [email or web address] 22/06 [facility] Pager [phone] 22/06 Pager ,[facility], and Brock 1500 22/06 David Pager [phone] 05/16/22 1129 Clinical Encounter Type Visited With Patient Visit Type Introduction Pastoral Time Spent 15 min Referral Other (See Comment) (Rounding) Spiritual Assessment Spiritual Observation Spirituality helpful;Identifies as (see comment) (Sabianist) Emotional Observation Coping well Hope Observation Hopeful and accepting Support Observation By Family Interventions Provided Active listening;Supportive presence Facilitated Verbalization of feelings;Sharing of life story;Identifying support system Explored Expectations Material Handling Warehouse Supervisor Education Material Handling Warehouse Supervisor Service Available Yes Educated Patient Outcomes Patient Outcomes Articulated purpose/meaning Plan of Care Continue Visiting PRN Internal Medicine Daily Progress Note Patient: George Styles, 1970, [id number] Physician: Nishant Gamez MD, PGY2, Pager #[phone], [email or web address] Subjective/Interval History: Overall feeling okay this morning. 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 [...] Supervision Transfer Assessment: Sit to Stand Transfer [place] Level: Sit->Stand: independent Skilled Intervention/Details: Sit->Stand: x1 from EOB Stand to Sit Transfer [place] Level: Stand->Sit: supervision Assistive Device: Stand->Sit: armed chair Skilled Rationale: Controlled descent for sitting, Verbal cues Gait/Functional Mobility: Gait Assessment [place] Level: Gait: supervision Assistive Device: Gait: gait belt Gait Distance (feet): 200 Gait Deviations Identified: decreased grace, decreased step length, decreased stride length Gait Skilled Rationale: verbal, upright posture Skilled Intervention/Details - Gait: Pt with steady gait without LOB or complaints of SOB. Stairs: Stairs Assessment [place] Level: Stair Negotiation: stand-by assist Assistive Device: Stair Negotiation: gait belt, left rail (ascending) Number of stairs: 9 Stairs Skilled Rationale: reciprocal pattern Outcome Score(s): CURRENT [facility] Basic Mobility Inpatient Short Form Turning over in bed: 4 - No Assistance Sitting/standing from chair: 4 - No Assistance Moving from lying on back to sittin - No Assistance Moving to and from bed to chair: 4 - No Assistance Walk in hospital room: 3 - A Little Assistance Climbing 3-5 steps with a railin - A Little Assistance CURRENT [facility] Mobility Raw Score: 22 CURRENT [facility] Mobility Functional Limitation/Modifier: 20.91% Currently Impaired in [...] reported no concerns with discharging home with [facility] support. 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 IADL History IADLs: independent Primary Language: Emir[place] Home Management Skills: independent Meal Prep Responsibility: [...] Assessment: Transfer Assessment: Sit to Stand Transfer [place] Level: Sit->Stand: independent Skilled Rationale: Cues for increased safety Skilled Intervention/Details: Sit->Stand: x1 EOB Stand to Sit Transfer [place] Level: Stand->Sit: supervision Assistive Device: Stand->Sit: gait belt, armed chair Skilled Rationale: Verbal cues, Controlled descent for sitting, Cues for increased safety Skilled Intervention/Details: Stand->Sit: cues for hand placement and controlled descent Functional Mobility: Functional Mobility [place] Level: Functional Mobility/Gait: stand-by assist Assistive Device: Functional Mobility/Gait: gait belt Functional Mobility Distance: Distance needed for limited community mobility Functional Mobility Deficits: Activity tolerance, Balance, Decreased step length, Generalized weakness Functional Mobility Skilled Rationale: Verbal cues, Facilitate postural control Skilled Intervention/Details - Functional Mobility/Gait: cues for upright posture Outcome Score(s): CURRENT [facility] Daily Activity Inpatient Short Form Putting on/Taking Off Lower Body Clothin - A Little Assistance Bathin - A Little Assistance Toiletin - A Little Assistance Putting on/Taking Off Upper Body Clothin - No Assistance Groomin - No Assistance Eatin - No Assistance CURRENT [facility] Activity Raw Score: 21 CURRENT [facility] Activity Functional Limitation/Modifier: 32.79% Currently Impaired in [...] N/A; Surgeon: LU Palma; Location: [facility] SAME DAY SURGERY MAIN OR KIDNEY TRANSPLANT W/O ALLAKAKET NEPHRECTOMY N/A 04/12/2020 Laterality: N/A; Surgeon: LU [...] by: Mel Norman OT, OTR/L License #: [id number] pager # [phone] 05/20/2022 Upon discontinuation of Acute Care Occupational Therapy Services or patient discharge from the hospital this note represents the current Occupational Therapy Discharge Summary. documented in this encounter [facility] 05-20-2022 Hospital course Narrative Discharge Summary Name: [...] had the opportunity to care for George Stylse during his recent hospital stay at [facility]. As you may know, George Styles, [...] Saldana MD Division of Hospital Medicine p: [phone] f: [phone] CONSULTS DURING ADMISSION: IP CONSULT TO SURGERY - UROLOGY IP CONSULT TO NEPHROLOGY - TRANSPLANT (MEDICINE) IP CONSULT TO INTERVENTIONAL RADIOLOGY IP CONSULT TO PHYSICAL THERAPY IP CONSULT TO OCCUPATIONAL THERAPY IP CONSULT TO PHARMACY BEDSIDE DISCHARGE MED DELIVERY IMAGING / PROCEDURES / RESULTS: Should you require further information or copies of results or reports please contact Medical Information Management @ [phone] LABS AT TIME OF DISCHARGE: Lab Results [...] Bruno [address] / [place] [address] MEDICATIONS: Discharge Orders CT ABDOMEN/PELVIS WITHOUT CONTRAST [...] CAPS Generic drug: docusate Follow-up: Zuly Bruno, CAD TECHNICIAN [address] [facility] [phone] Schedule an appointment as soon as possible for a visit Follow-up appointment with your, primary care physician within 7-10 days, after discharge. [address] [facility] [phone] Follow up The department of urology will call you with a follow up appointment. LU Ovalle [address] [facility] [address] Follow up Please make a follow up appointment with Dr. Latham's office. Upcoming Appointments (up to five)-Some appointments for Medical Center outpatient clinics or diagnostic testing locations are not displayed below Provider Department Dept Phone 06/04/2022 10:40 AM IR [facility] Interventional Radiology Clinic [phone] 06/27/2022 1:[address] [facility] Department of Radiology Arrive at: Arrive to First Floor Registration Desk [phone] 06/27/2022 2:40 PM Ryan Yepez [facility] [place] Arrive at: Arrive to 2nd Floor, Registration [address] 10/31/2022 1:00 PM Steve Latham [facility] Transplant [facility] [phone] 01/16/2023 9:40 AM TRANSPLANT HEPATOLOGY , [facility] Transplant [facility] [phone] Associated attestation - Daya Saldana MD - [...] MD (Peggy) Division of Hospital Medicine Pager [phone] documented in this encounter [facility] 05-20-2022 Hospital Discharge instructions Giulia Cavazos RN [...] be changed by Interventional Radiology. Please call [phone] to schedule this appointment and with any questions or concerns you may have regarding the nephrostomy tube. If you have questions or concerns, please call Interventional Radiology at SOMEONE FROM INTERVENTIONAL RADIOLOGY WILL CALL YOU FOR A FOLLOW UP IN THE IR CLINIC Giulia Cavazos RN Nurse Coordinator Interventional Radiology Interventional Radiology Outpatient scheduling documented in this encounter [facility] 05-19-2022 Note Formatting of this n [...] Ongoing Goal: Interdisciplinary Rounds/Family Conf Outcome: Ongoing [facility] 05-19-2022 Note Formatting of this n ote might be different from the original. Discussed with [facility] re: possible urine culture performed at their facility. However, based on urinalysis completed at that time, which was only notable for hematuria, culture was not performed and sample no longer feasible for culture. Liam Julian MD Internal Medicine/Pediatrics, PGY-3 [facility] 05-18-2022 Note Formatting of this n ote might be different from the original. 2002: IHIS message sent to Dr Justyn Wen, regarding patient passing a small kidney stone, about the size of pea. MD notified. Stone left in strainer in pt bathroom. 0500: IHIS message sent to Dr Justyn Wen, regarding pt BP 174/77. [facility] 05-18-2022 Note Formatting of this n [...] outcomes by discharge/transition of care. Outcome: Ongoing [facility] 05-18-2022 Note Formatting of this n [...] becomes hyponatremic, NS should instead be used. [facility] Work Phone: 05-18-2022 Note Formatting of this n ote might be different from the original. IHIS chat sent to Dr Tray Quintana, regarding pt BP 190/86. Pt complaining of pain at site of neph tube. PRN pain medication given per order parameters. Pt denies any other symptoms at this time. MD notified and aware. [facility] 05-17-2022 Note Formatting of this n ote might be different from the original. At 0900, I rounded with Dr. Gamez and Dr. Saldana. At that time I checked Mr. Styles's vital signs. His pulse oximeter was low and he was tachypneic. Verbal order at bedside to put nasal cannula on starting at 2liters oxygen and to provide incentive spirometer. [facility] 05-17-2022 Note Formatting of this n ote might be different from the original. Interventional Radiology procedure completed with IR Attending Dr. Heart / Dr. Le of percutaneous right nephrostomy tube placement transplant kidney 10.2 Fr Griffin acosta Pt tolerated procedure with moderate sedation local numbing agent . Transported to inpatient after phase I recovery. Post procedure orders in place. [facility] 05-16-2022 Note Formatting of this n ote might be different from the original. At 1530, I text chavad Kaitlynn Gomez MD that patient has only had 25ml urine output in myers this afternoon. [facility] 05-16-2022 Note Formatting of this n [...] with questions. Evan Byrd MD Urology, PGY-2 #[id number] [facility] Work Phone: 05-16-2022 Note Formatting of [...] be discharge to home. [facility] 05-16-2022 Consult note Associated Order (s): IP CONSULT TO NEPHROLOGY - TRANSPLANT (MEDICINE) I saw George Styles at the [facility] on 05/16/2022. Reason for Consultation: [...] he was given flomax and sent home. [place] better but noticed more pain and decreased [...] best assessment and recommendations. Maxi Pringle MD [facility] Work Phone: 05-16-2022 Consult note Associated Order (s): IP CONSULT TO NEPHROLOGY - TRANSPLANT (MEDICINE) I saw George Styles at the [facility] on 05/16/2022. Reason for Consultation: [...] he was given flomax and sent home. [place] better but noticed more pain and decreased [...] states he went to his local ED [place] and he was put on Flomax and he did improve. Pt states last night he was unable to void with severe right sided abd pain. Pt states nausea and no vomiting or fevers. Pt states he went back to [facility] ED at 0100 and they placed a [...] orthotopic (N/A, 04/12/2020); and kidney transplant w/o ekuk nephrectomy (N/A, 04/12/2020). 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 The ekuk kidneys are progressively atrophic bilaterally compared to [...] of 06/14/2020 are no longer present. The ekuk distal right ureter is decompressed beyond this [...] with surgical history for renal graft and ekuk right urinary drainage, as a discrete ureteroneocystostomy is not identified, and the graft may be draining via a ureteroureterostomy. Urology consultation recommended. 3. The ekuk kidneys are bilaterally atrophic, with right renal sinus calcifications consistent with nonobstructing right ekuk renal calculi up to 6 mm. Normal Assessment Mr. Sytles is a 52 y.o. male who presents [...] PGY-3, Department of Urologic Surgery Pager #: [phone] Associated attestation - Ryan Yepez MD - [...] documented in this encounter [facility] 05-16-2022 Note Formatting of this n ote [...] supported Trust Relationship/Rapport: care explained choices provided [facility] 05-16-2022 Note Formatting of this n ote might be different from the original. On admission to R10, a dual RN initial assessment of skin condition was performed by Kallie Lorenzana RN and Sheri Arguelles RN. Skin Assessment: WDL Jose Score: 20 LDA Added:N Kallie Lorenzana RN [facility] 05-15-2022 Emergency department Note Report given to Kallie RN at 10 [facility] 05-15-2022 Emergency department Note Report given [...] DAY SURGERY MAIN OR KIDNEY TRANSPLANT W/O ALLAKAKET NEPHRECTOMY N/A 04/12/2020 Laterality: N/A; Surgeon: LU [...] Schneider MD Resident 05/15/222030 Pt arrives from [facility] with kidney stones. Pt states he had right lower abd pain and right flank pain with blood in his urine since Thursday. Pt states he went to his local ED [place] and he was put on Flomax and he did improve. Pt states last night he was unable to void with severe right sided abd pain. Pt states nausea and no vomiting or fevers. Pt states he went back to [facility] ED at 0100 and they placed a myers and CT scan completed and multiple kidney stones noted. [facility] as he had liver and kidney transplant in 03/2020. documented in this encounter [facility] 05-15-2022 History and physical note Internal Medicine Admission History & Physical Patient: George Styles, 1970, [id number] Physician: Evan Bennett MD, PGY1, Pager #[phone], GM 4 service Date of face to [...] DAY SURGERY MAIN OR KIDNEY TRANSPLANT W/O ALLAKAKET NEPHRECTOMY N/A 04/12/2020 Laterality: N/A; Surgeon: LU [...] erythema: Skin: No jaundice or rash Neuro: deputy sheriff lieutenant 3-7, 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 Strength grossly [...] dilation of the calyces may represent narrowing/partial [id number] ofthe ureter and mild hydronephrosis or sequela [...] MD Division of Hospital Medicine [phone] [facility] Work Phone: 05-15-2022 History and physical note Internal Medicine Admission History & Physical Patient: George Styles, 1970, [id number] Physician: Evan Bennett MD, PGY1, Pager #[phone], 4 service Date of face to face [...] DAY SURGERY MAIN OR KIDNEY TRANSPLANT W/O ALLAKAKET NEPHRECTOMY N/A 04/12/2020 Laterality: N/A; Surgeon: LU [...] erythema: Skin: No jaundice or rash Neuro: deputy sheriff lieutenant 3-7, 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 Strength grossly [...] dilation of the calyces may represent narrowing/partial [id number] ofthe ureter and mild hydronephrosis or sequela [...] documented in this encounter [facility] 05-15-2022 Emergency department Note Bladder scan with Dr Villatoro at bedside, 14ml noted [facility] 05-15-2022 Consult note Associated Order (s): IP [...] states he went to his local ED [place] and he was put on Flomax and he did improve. Pt states last night he was unable to void with severe right sided abd pain. Pt states nausea and no vomiting or fevers. Pt states he went back to [facility] ED at 0100 and they placed a [...] orthotopic (N/A, 04/12/2020); and kidney transplant w/o ekuk nephrectomy (N/A, 04/12/2020). 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 The ekuk kidneys are progressively atrophic bilaterally compared to [...] of 06/14/2020 are no longer present. The ekuk distal right ureter is decompressed beyond this [...] with surgical history for renal graft and ekuk right urinary drainage, as a discrete ureteroneocystostomy is not identified, and the graft may be draining via a ureteroureterostomy. Urology consultation recommended. 3. The ekuk kidneys are bilaterally atrophic, with right renal sinus calcifications consistent with nonobstructing right ekuk renal calculi up to 6 mm. Normal [...] PGY-3, Department of Urologic Surgery Pager #: [phone] Associated attestation - Ryan Yepez MD - [...] intervention --may continue flomax [facility] Work Phone: 05-15-2022 Emergency department Note Advised Dr Schneider concerning no urine output via myers catheter. [facility] 05-15-2022 Physician Emergency department Note ED Attending [...] plan of care. Gian Villatoro MD 05/15/222003 [facility] Work Phone: 05-15-[address] Schneider made aware of only 30 ml urine via myers since arrival to room. [facility] 05-15-2022 Physician Emergency department Note dEPARTMENT [...] DAY SURGERY MAIN OR KIDNEY TRANSPLANT W/O ALLAKAKET NEPHRECTOMY N/A 04/12/2020 Laterality: N/A; Surgeon: LU [...] Schneider MD Resident 05/15/222030 [facility] Work Phone: 05-15-2022 Emergency department Note Pt arrives from [facility] with kidney stones. Pt states he had right lower abd pain and right flank pain with blood in his urine since Thursday. Pt states he went to his local ED [place] and he was put on Flomax and he did improve. Pt states last night he was unable to void with severe right sided abd pain. Pt states nausea and no vomiting or fevers. Pt states he went back to [facility] ED at 0100 and they placed a myers and CT scan completed and multiple kidney stones noted. Pt [facility] as he had liver and kidney transplant in 03/2020. [facility] 03-14-2022 History of Present illness Narrative [...] Required: No Mailing/Pickup Date: 03/17/2022 Shipping Address: [address] [place] [address] [address] Contact Info: Specialty ([place]) [phone] [facility] [phone] [facility] [phone] David [phone] Bedside Delivery ([facility]) [phone] documented in this encounter [facility] 06-14-2021 History of Present illness Narrative [...] Goal Progress: Satisfactory Contact Info: Specialty ([place]) [phone] Jakob [phone] [facility] [phone] [facility] [phone] Bedside Delivery ([facility]) [phone] [facility]: Call Information: Date [...] Location: Home Signature Required: Yes Shipping Address: [address] [place] [address] Contact Info: Specialty ([place]) [phone] [facility] [phone] [facility] [phone] [facility] [phone] Bedside Delivery ([facility]) [phone] documented in this encounter [facility] Evaluation note Diagnosis FAYE (acute kidney injury)- Primary Acute kidney failure, unspecified Hydronephrosis due to obstruction of ureteral orifice Hydronephrosis due to obstruction of ureteral orifice FAYE (acute kidney injury) Acute kidney failure, unspecified [facility] Diagnosis Follow-up exam- Primary Unspecified follow-up examination [facility] Diagnosis Immunosuppressed status- Primary Unspecified disorder of immune mechanism Kidney replaced by transplant Liver replaced by transplant Abnormal blood chemistry Other abnormal blood chemistry High risk medication use Encounter for long-term (current) use of other medications Aftercare following organ transplant Liver transplant recipient [facility] Diagnosis Attention to nephrostomy- Primary [facility] Diagnosis Other hydronephrosis- Primary [facility] Diagnosis FAYE (acute kidney injury) Acute kidney failure, unspecified [facility] Diagnosis Other hydronephrosis- Primary -donor kidney transplant recipient Kidney replaced by transplant [facility] Diagnosis Other hydronephrosis [facility] Diagnosis 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) Encounter for screening for malignant neoplasm of prostate Special screening for malignant neoplasm of prostate [facility] Diagnosis Abnormal blood chemistry- Primary Other abnormal blood chemistry Liver transplant recipient Kidney replaced by transplant Immunosuppressed status Unspecified disorder of immune mechanism Aftercare following organ transplant [facility] Diagnosis Kidney replaced by transplant- Primary [facility] Diagnosis Immunosuppressed status- Primary Unspecified disorder of immune mechanism Kidney replaced by transplant Aftercare following organ transplant High risk medication use Encounter for long-term (current) use of other medications Other general symptoms and signs Abnormal blood chemistry Other abnormal blood chemistry Hypertension secondary to other renal disorders [facility] Diagnosis Histoplasmosis- Primary Histoplasmosis, unspecified without [...] [facility] Consultation (Routine) - New Request Specialty Diagnoses / Procedures Referred By Deni edwards Referred To Contact Interventional Radiology Diagnoses Hydronephrosis due to obstruction of ureteral orifice Daya Saldana MD [address] [place] [address] Referral ID Status Reason Start Date Expiration Date V isits Requested Visits Authorized [id number] New Request 05/18/2022 06/12/2023 1 1 * Radiology (Emergency) - New Request Specialty Diagnoses / Procedures Referred By Deni edwards Referred To Contact Procedures US RENAL TRANSPLANT SCAN Daya Saldana MD [address] [place] [address] Referral ID Status Reason Start Date Expiration Date V isits Requested Visits Authorized [id number] New Request 05/16/2022 06/10/2023 1 1 * Consultation (Routine) - New Request Specialty Diagnoses / Procedures Referred By Deni edwards Referred To Contact Urology Diagnoses FAYE (acute kidney injury) Ryan Yepez MD [address] [facility] [address] [place] [address] Referral ID Status Reason Start Date Expiration Date V isits Requested Visits Authorized [id number] New Request 05/16/2022 06/10/2023 1 1 * MRI/CAT Scan (Routine) - New Request Specialty Diagnoses / Procedures Referred By Contac t Referred To Contact Diagnoses FAYE (acute kidney injury) Procedures CT ABDOMEN/PELVIS WITHOUT CONTRAST CHG CT SCAN,ABDOMENT AND PELVIS,W/O CONTRAST Ryan Yepez MD [address] [place] [address] Referral ID Status Reason Start Date Expiration Date V isits Requested Visits Authorized [id number] New Request 05/16/2022 06/10/2023 1 1 * (Routine) - Pending Review Specialty Diagnoses / Procedures Referred By Contac t Referred To Contact Procedures PLATELET MONITORING PER PROTOCOL Daya Saldana MD [address] [place] [address] Referral ID Status Reason Start Date Expiration Date V isits Requested Visits Authorized [id number] Pending Review 05/15/2022 06/09/2023 1 1 * (Routine) - Pending Review Specialty Diagnoses / Procedures Referred By Contac t Referred To Contact Procedures DVT/VTE RISK ASSESSMENT Daya Saldana MD [address] [place] [address] Referral ID Status Reason Start Date Expiration Date V isits Requested Visits Authorized [id number] Pending Review 05/15/2022 06/09/2023 1 1 * (Routine) Specialty Diagnoses / Procedures Referred By Contac t Referred To Contact Evan Bennett MD [address] [place] [address] Referral ID Status Reason Start Date Expiration Date Visits Re quested Visits Authorized * (Routine) Specialty Diagnoses / Procedures Referred By Deni t Referred To Contact Evan Bennett MD [address] [place] [address] Referral ID Status Reason Start Date Expiration Date Visits Re quested Visits Authorized [facility] for referral (narrative)* Consultation (Routine) - New Request Specialty Diagnoses / Procedures Referred By Deni t Referred To Contact Sleep Medicine Diagnoses Hypoxia Kevin Sage MD [address], [place] [address] Referral ID Status Reason Start Date Expiration Date V isits Requested Visits Authorized [id number] New Request 09/10/2023 10/04/2024 1 1 * MRI/CAT Scan (Routine) - New Request Specialty Diagnoses / Procedures Referred By Deni t Referred To Contact Diagnoses Histoplasmosis Procedures CT CHEST WITHOUT CONTRAST CHG DIAGNOSTIC COMPUTED TOMOGRAPHY THORAX W/O ROBERTT Kevin Sage MD [address] [place] [address] Referral ID Status Reason Start Date Expiration Date V isits Requested Visits Authorized [id number] New Request 09/10/2023 10/04/2024 1 1 * Radiology (Routine) - New Request Specialty Diagnoses / Procedures Referred By Deni t Referred To Contact Procedures US RENAL TRANSPLANT SCAN Steve Latham MBBS [address] [place] [address] Referral ID Status Reason Start Date Expiration Date V isits Requested Visits Authorized [id number] New Request 08/29/2023 09/22/2024 1 1 * (Routine) - New Request Specialty Diagnoses / Procedures Referred By Contac t Referred To Contact Procedures PLATELET MONITORING PER PROTOCOL Steve Latham MBBS [address] [place] [phone] Referral ID Status Reason Start Date Expiration Date V isits Requested Visits Authorized [id number] New Request 08/28/2023 09/21/2024 1 1 * (Routine) - New Request Specialty Diagnoses / Procedures Referred By Contac t Referred To Contact Procedures DVT/VTE RISK ASSESSMENT Steve Latham MBBS [address] [place] [phone] Referral ID Status Reason Start Date Expiration Date V isits Requested Visits Authorized [id number] New Request 08/28/2023 09/21/2024 1 1 [facility] Instructions * Patient Instructions - Christin Elizabeth APRN-ROB - 10/19/2018 9:21 AM EST You should take an extra dose of the lactulose as needed so that you are having 3-4 bowel movementsdaily. You should start the chemical dependency counseling as soon as possible. If you have questions, call the transplant long term care social worker Melania Pierson. in this encounter* Patient Instructions - Sophie Cary RN - 10/12/2018 11:09 AM EST You have been seen in the pre-transplant evaluation clinic by Dr. Restrepo and Sophie Cary. Sophie Cary is your pre-assisted living coordinator she can be reached at [phone] at any time for questions during the pre-transplant process. Your evaluation is complete pendin. Abdominal ultrasound. 2. 6 minute walk test. 3. Cardiology evaluation. Additionally, your magnetic testing technician will recommend testing to screen for coronary artery disease. This will be scheduled for you after your cardiology visit. 4. Your coordinator will be requesting record from your last dental visit, colonoscopy and EGD. 5. Please work to complete social work recommendations. Your long term care social worker will be contacting you to follow up on your progress. 6. You have also been referred for a kidney transplant. An appointment will be scheduled for you sari evaluated in the kidney transplant clinic after you have satisfied requirements dictated by [employer]. Once your testing is complete, we [...] ___ Other Name MRN * Christin Elizabeth, RETAIL DIRECTOR-CAD TECHNICIAN - 10/19/2018 9:00 AM EST Formatting of this note may be different from the original. History of Present Illness: Chief Complaint Patient presents with Follow-up Cirrhosis George Styles is a 48 y.o. male who presents to the [facility] today regarding his diagnosis/chief complaint(s) of Cirrhosis secondary to ETOH, with ESRD follows with Dr. Orr. Currently undergoing evaluation for liver/kidney transplant. Has been seen in transplant clinic for eval. Still undergoing pre testing. Diagnosed in April 2018. Last drink was immediately prior to hospital admission in [place] for ACLF. Hospital course notable for ARF [...] (human immunodeficiency virus infection); Hyperlipidemia; Hyperthyroidism; Hypothyroidism; DC (myocardial infarction); Migraine; DARLENE (obstructive sleep apnea); [...] kidney transplant evaluation. Pt was AOx3. Transplant Jointer Operator role/function was explained and reviewed. The patient was informed that the results of this assessment will be shared with the referring provider and the transplant team. The patient verbalized understanding of this information. The [facility] psychosocial assessment consent form has been explained to patient and has been signed. Pt is completing this evaluation with brother (David) in the Outpatient setting. NANCYK educated pt on the benefits of completing/filing advanced directives and resources were offered. Pt identifies with CAODAISM orthodoxy. Pt confirms being a [place] Citizen. Pt.'s primary language is Emirati. Pt confirms the ability to read,write, and understand [place]. Pt denies potential donors. Donor cards and [...] has valid license, does not regularly drive ([facility] recommends that he not to drive). [...] related disease etoh cirrohosis April dx in [facility] for thirty days. Pt reports [...] as well as referred him to pre assisted living coordinator. Pt and support demonstrated moderate understanding [...] Patient's brother David is a self employed outbound sales agent. Additional support includes his other brother Tyshawn and his Mary live fifteen minutes away. Of note Mary is a circle edger for a [employer] is available to assist parts runner. He confirms being comfortable asking for help. [...] in 2010, he was employed by the [employer]. He has access to SSDI payment (SSDI starts in November) in regards to financial means pre/ post-transplant. Pt confirms (meeting bills currently, ) being able to meet daily needs. Patient's brother asking for additional information on community resources, food stamps and [place]. [facility] Hereports access to Medicaid. Pt. denies [...] court ordered treatment after a DUI charge Replaced By [facility] in [place], court ordered treatment in 2001 and in [...] by patient from his primary medical provider- CAD TECHNICIAN patient was noted as attending an alcohol [...] He was provided with local AOD resources, [facility] AOD informational packet. Pt was referred for [...] new visit Date of service: 10/12/2018 -Referring sane rn for today's consult: -Primary Care Provider: Zuyl Bruno CC: Chief Complaint Patient presents with Liver Recipient Evaluation History of Present Illness George Styles is a 48 y.o. male who presents to the [facility] liver transplant surgery clinic today for evaluation [...] processes progressing rapidly Unknown * Elisa Tiwari, TOLL GATE TENDER - 10/12/2018 10:00 AM EST Timed up and go 9.9 seconds Pretzel Twister Left 52.8 pounds Right 44.9 pounds Waist circ 38.5 inches * Sophie Cary, RN - 10/12/2018 10:00 AM EST Formatting of this note may be different from the original. Patient George Styles ([id number]), accompanied by his brother, was seen on [...] any further questions. Sophie DON, RN Liver Plate Finisher Etiology: ETOH HCC: No ETOH: Yes Last [...] Yovani Orr MD [address] [address] Status Reason Specialty Diagnoses / Procedures Referred By Contact Referred To Contact New Request Diagnoses Cirrhosis of liver with ascites, unspecified hepatic cirrhosis type Procedures US ABDOMEN RUQ/LIVER/GB Yovani Orr MD [address] [address] Specialty Diagnoses / Procedures Referred By Contac t Referred To Contact Diagnoses FAYE (acute kidney injury) Procedures CT ABDOMEN/PELVIS WITHOUT CONTRAST CHG CT SCAN,ABDOMENT AND PELVIS,W/O CONTRAST Central Scheduling [address] [place] [phone] Referral ID Status Reason Start Date Expiration Date V isits Requested Visits Authorized [id number] Pending Review 05/16/2022 06/10/2023 1 1 Specialty Diagnoses / Procedures Referred By Contac t Referred To Contact Diagnoses Other hydronephrosis Procedures [facility] Ryan Yepez MD [address] [facility] [address] [place] [address] Referral ID Status Reason Start Date Expiration Date V isits Requested Visits Authorized [id number] New Request 07/07/2022 08/01/2023 1 1 Specialty Diagnoses / Procedures Referred By Contac t Referred To Contact Procedures DIRECT ADMIT REQUEST Steve Latham MBBS [address] [place] [address] Referral ID Status Reason Start Date Expiration Date V isits Requested Visits Authorized [id number] New Request 08/28/2023 09/21/2024 1 1 Advance Directives No Advanced Directives Records FoundDocuments on File Type Date Recorded Patient Parcel Post Clerk Expl anation Advance Directives and Living Will Power of Roof Painter Latest Code Status on File Code Status [...] Yovani Orr MD [address] [address] Status Reason Specialty Diagnoses / Procedures Referre d By Contact Referred To Contact Denied Diagnoses Alcoholic cirrhosis, unspecified whether ascites present Pre-transplant evaluation for liver transplant Procedures MRI ABDOMEN WITH CONTRAST HI MRI, ABDOMEN W/CONTRAST Yovani Orr MD [address] [address] Reason Comments Liver Recipient Evaluation Status Reason Specialty Diagnoses / Procedures Referred By Contact Referred To Contact New Request Transplant / Transplant Surgery Procedures PRE NEW PATIENT Yovani Orr MD [address] [address] Alfredito Restrepo MD [address] [place] [address] Reason Comments Reschedule Reason Comments Outside Medical Records Request Reason Comments Social Work Follow-up Reason Comments Kidney Stone Specialty Diagnoses / Procedures Referred By Contac t Referred To Contact Diagnoses Obstructing kidney stone, s/p kidney transplant 2019 Daya Saldana MD [address] [place], [place] [address] [facility] [address] [place] [address] Referral ID Status Reason Start Date Expiration Date Visits Re quested Visits Authorized [id number] 1 1 Reason Comments Follow-up Reason Comments Kidney Recipient Follow-up Liver Recipient Follow-up Reason Comments Consult Reason Comments New Patient Hospital follow up Specialty Diagnoses / Procedures Referred By Contac t Referred To Contact Urology Diagnoses hosp fu with [address] prior Procedures NEW TO DOC/RET PATIENT Zuly Bruno CNP [address] [place] [address] Ryan Yepez MD [facility] [address] [place] [address] Referral ID Status Reason Start Date Expiration Date Visits Re quested Visits Authorized [id number] Closed 06/27/2022 07/22/2023 1 1 Specialty Diagnoses / Procedures Referred By Socorroac t Referred To Contact Diagnoses FAYE (acute kidney injury) Procedures CT ABDOMEN/PELVIS WITHOUT CONTRAST CHG CT SCAN,ABDOMENT AND PELVIS,W/O CONTRAST Central Scheduling [address] [place] [phone] Referral ID Status Reason Start Date Expiration Date V isits Requested Visits Authorized [id number] Pending Review 05/16/2022 06/10/2023 1 1 Reason Comments Follow-up Specialty Diagnoses / Procedures Referred By Contac t Referred To Contact Urology Diagnoses 1 week fu post NT clamp Procedures RETURN PATIENT Zuly Bruno CNP [address] [place] [address] Ryan Yepez MD [address] [facility] [address] [place] [address] Referral ID Status Reason Start Date Expiration Date Visits Requested Visits Authorized [id number] Authorized - 07/07/2022 08/01/2023 2 2 Specialty Diagnoses / Procedures Referred By Deni edwards Referred To Contact Diagnoses Other hydronephrosis Procedures [facility] Ryan Yepez MD [address] [facility] [address] [place] [address] Referral ID Status Reason Start Date Expiration Date V isits Requested Visits Authorized [id number] New Request 07/07/2022 08/01/2023 1 1 Specialty Diagnoses / Procedures Referred By Deni edwards Referred To Contact Urology Diagnoses 1 week fu post NT clamp Procedures RETURN PATIENT Zuly Bruno, CAD TECHNICIAN [address] [place] [address] Ryan Yepez MD [address] [facility] [address] [place] [address] Referral ID Status Reason Start Date Expiration Date Visits Re quested Visits Authorized [id number] Closed 07/07/2022 08/01/2023 2 2 Reason Comments Liver Recipient Follow-up Reason Comments Kidney Recipient Follow-up Reason Comments Kidney Recipient Follow-up Specialty Diagnoses / Procedures Referred By Deni edwards Referred To Contact Diagnoses Kidney replaced by transplant Steve Latham MBBS [address] [place] [address] [facility] [address] [place] [address] Referral ID Status Reason Start Date Expiration Date Visits Re quested Visits Authorized [id number] 1 1 (unrecognized sect ion and content) No Status Records FoundNo Status Records FoundNo Status Records FoundNo Status Records FoundNo Status Records FoundNo Status Records Found INFORMATION SOURCE (unrecogn ized section and content) DATE CREATED AUTHOR 01/07/2020 Karlie ariza DATE CREATED AUTHOR AUTHOR'S ORGANIZ ATION 01/27/2021 [facility] DATE CREATED AUTHOR AUTHOR'S ORGANIZ ATION 04/13/2023 [facility] DATE CREATED AUTHOR AUTHOR'S ORGANIZ ATION 05/11/2023 [facility] DATE CREATED AUTHOR AUTHOR'S ORGANIZ ATION 10/26/2023 [facility] DATE CREATED AUTHOR AUTHOR'S ORGANIZ ATION 11/05/2023 [facility] dictn Specialists EP[employer] Care Teams (unrecognized sec tion and content) [employer] Crewmember Relationship Specialty Start Date End Date Zuly Bruno CNP PCP - General 07/19/18 Comfort Rivera [facility] [address] [facility] [address] [place] [address] Pharmacist Pharmacist 05/16/20 Angel Carpio [facility],PharmD Pharmacist Pharmacist 05/16/20 Te Leigh [facility],PharmD Pharmacist Pharmacist 01/09/21 [employer] Relationship Specialty Start Date End Date Zuly Bruno CNP PCP - General 07/19/18 Comfort Rivera [facility] [address] [facility] [address] [place] [address] Pharmacist Pharmacist 05/16/20 Angel Carpio [facility],PharmD Pharmacist Pharmacist 05/16/20 Te Leigh [facility],PharmD Pharmacist Pharmacist 01/09/21 [employer] Crew[employer] Relationship Specialty Start Date End Date Zuly Bruno CNP PCP - General 07/19/18 [employer] Crewmember Relationship Specialty Start Date End Date Zuly Bruno CNP PCP - General 07/19/18 [employer] Crewmember Relationship Specialty Start Date End Date Zuly Bruno CNP PCP - General 07/19/18 [employer] Crewmember Relationship Specialty Start Date End Date Zuly Bruno CNP PCP - General 07/19/18 [employer] Crewmember Relationship Specialty Start Date End Date Zuly Bruno CNP PCP - General 07/19/18 [employer] Crewmember Relationship Specialty Start Date End Date Zuly Bruno CNP PCP - General 07/19/18 [employer] Crewmember Relationship Specialty Start Date End Date Zuly Bruno CNP PCP - General 07/19/18 [employer] Crewmember Relationship Specialty Start Date End Date Zuly Bruno CNP PCP - General 07/19/18 [employer] Crewmember Relationship Specialty Start Date End Date Zuly Bruno CNP PCP - General 07/19/18 [employer] Crewmember Relationship Specialty Start Date End Date Zuly Bruno CNP PCP - General 07/19/18 [employer] Crewmember Relationship Specialty Start Date End Date Zuly Bruno CNP PCP - General 07/19/18 [employer] Crewmember Relationship Specialty Start Date End Date Zuly Bruno CNP PCP - General 07/19/18 [employer] Crewmember Relationship Specialty Start Date End Date LexiesylvesterlatishaZuly tipton CNP PCP - General 07/19/18 [employer] Crewmember Relationship Specialty Start Date End Date Lexiesylvesterjose eZuly ROB PCP - General 07/19/18 [employer] Crewmember Relationship Specialty Start Date End Date Zuly Bruno CNP PCP - General 07/19/18 Evan White DO [address] [place], [place] [id number] Infectious Disease Infectious Disease 09/09/23 [employer] Crewmember Relationship Specialty Start Date End Date Zuly Bruno CNP PCP - General 07/19/18 Evan White DO [address] [place], [place] [id number] Infectious Disease Infectious Disease 09/09/23 [employer] Crewmember Relationship Specialty Start Date End Date Zuly BrunoROB PCP - General 07/19/18 Evan White DO [address] [place], [place] [id number] Infectious Disease Infectious Disease 09/09/23 Scheduled Active [...] Discontinued 0900 (Automatically Held - Provider: Fred Prnice MD)1700 (Automatically Held - Provider: Fred Prince [...] BE BASED ON THE PRIMARY CLINICAL RECORDS. [facility]. provides no warranty or guarantee of the accuracy or completeness of information in this document.
[2024-01-01 07:08] LABS: Basophils Percent Auto 0.5 % (0.2-2.0); Eosinophils Absolute Auto 0.1 10^3/uL (0.0-0.7); Eosinophils Percent Auto 2.6 % (0.9-7.0); Hematocrit 43.8 % (42.0-54.0); Lymphocytes Absolute Auto 1.8 10^3/uL (1.2-3.8); Lymphocytes Percent Auto 45.2 % (20.5-60.0); Mean Corpuscular Hemoglobin 27.9 pg (25.9-34.0); Mean Corpuscular Volume 87.4 fL (80.0-94.0); Mean Platelet Volume 9.8 fL (9.5-13.5); Monocytes Absolute Auto 0.4 10^3/uL (0.3-0.8); Monocytes Percent Auto 9.6 % (1.7-12.0); Neutrophils Absolute Auto 1.6 10^3/uL (1.4-6.5); Neutrophils Percent Auto 42.1 % (43.0-75.0); Platelet Count 180 10^3/uL (150-450); Red Blood Count 5.01 10^6/uL (4.70-6.10); Red Cell Distribution Width 13.5 % (11.0-15.0); White Blood Count 3.9 10^3/uL (4.0-11.0)
[2024-01-01 07:38] LABS: Creatinine Urine Random 76.46 mg/dL (20.00-300.00); Protein Creatinine Ratio Urine 0.16; Total Protein Urine Random 12.5 mg/dL (<=11.9)
[2024-01-01 07:49] LABS: Alanine Aminotransferase 23 U/L (16-63); Albumin Level 3.9 g/dL (3.4-5.0); Alkaline Phosphatase 93 U/L (46-116); Anion Gap 13.6; Aspartate Amino Transferase 25 U/L (15-37); BUN Creatinine Ratio 10.9; Bilirubin Direct 0.3 mg/dL (0.0-0.2); Bilirubin Total 2.4 mg/dL (0.2-1.0); Carbon Dioxide 27.2 mmol/L (21.0-32.0); Chloride 105 mmol/L (98-107); Estimated GFR (African America >60 (>=60); Estimated GFR (Non-African Ame >60 (>=60); Gamma Glutamyl Transpeptidase 15 U/L (15-85); Glucose 102 mg/dL (74-106); Magnesium 1.7 mg/dL (1.8-2.4); Phosphorus 3.5 mg/dL (2.6-4.7); Potassium 3.8 mmol/L (3.5-5.1); Sodium 142 mmol/L (136-145)
[2024-01-05 18:12] LABS: Tacrolimus (FK506), Blood 5.2 ng/mL (2.0-20.0)
== END 2024-01-01 06:40 | disposition home or self-care (01) ==
LOC: LAB 06:41
PROVIDERS: PCP Nurse Practitioner
DX: R79.9 Abnormal finding of blood chemistry, unspecified (principal); Z94.0 Kidney transplant status; Z48.298 Encounter for aftercare following other organ transplant; D84.9 Immunodeficiency, unspecified; Z94.4 Liver transplant status; B39.9 Histoplasmosis, unspecified
CPT/HCPCS: 36415; 80048; 80189; 80197; 82042; 82247; 82248; 82570; 82977; 83735; 84075; 84100; 84156; 84450; 84460; 85025

== ENCOUNTER 2024-01-08 06:31 | Outpatient (OUT) | payer MEDICARE, MEDICAID, SELFPAY ==
--- OUTSIDE RECORDS SUMMARY | 2024-01-08 06:38 | XMS_ITS | CCD ---
Author Name Unknown Address [id number] [place] [address] Organization [facility] Care Team Providers Care Administration Clerk Name Role Phone Zuly Bruno Unavailable Unavailable Primary Care Provider Unavailabl colt PATINO ROB Referring Unavailable KASMANI, ROB Referring Unavailable KASMANI, RBO Referring Unavailable RIST, RENA Referring Unavailable TANA ABEL Referring Unavailable RIST, RENA Referring Unavailable RIST, RENA Referring Unavailable RIST, RENA Referring Unavailable RIST, RENA Referring Unavailable PEPE CASE Attending Unavailable PEPE CASE Admitting Unavailable KIANA ZULY Referring Unavailable JAZLYN BRUNOA Primary Care Unavailable Aichholz [facility], Zuly Primary Care Provider Miguel [facility] [phone] Shirin RP,PharmD, Angel Unavailable Unavailab makayla Leigh [facility],PharmD, Te Unavailable Unavai lable Aiclydiaholz [facility] Primary Care Provider [phone] MIGUEL CARDONA Attending Unavailable MISC, DR BURCH Admitting Unavailable MISC, DR BURCH Consulting Unavailable AICHHOLOmer, ROB ZULY Primary Care Unavailable MISC, DR BURCH Attending Unavailable MISC, DR BURCH Admitting Unavailable MISC, DR BURCH Consulting Unavailable AICHHOLZ, [employer]GICAL GARMENT ASSEMBLER ZULY Primary Care Unavailable MISC, DR BURCH Attending Unavailable ARCELIA PIZARRO Consulting Unavailable KE BURNHAM Attending Unavailable KE BURNHAM Admitting Unavailable DR MÓNICA JIMENEZ Consulting Unavailable AICHHOLOmer, SURGICAL GARMENT ASSEMBLER [facility] Primary Care Unavailable NAUN ., KE Consulting Unavailable MISC, DR DOCTOR Consulting Unavailable MISC, DR DOCTOR [facility]ending [facility] Primary Care Unavailable MISC, DR DOCTOR Admitting Unavailable MISC, DR DOCTOR Consulting Unavailable MISC, DR DOCTOR Attending Unavailable AICHOL, [facility] Primary Care Unavailable MISC, DR DOCTOR Admitting Unavailable MISC, DR DOCTOR Consulting Unavailable AICHOL, [facility] Primary Care Unavailable MISC, DR DOCTOR Admitting Unavailable MISC, DR DOCTOR Attending Unavailable MELINDA, DR GEORGE Munoz Consulting Unavailable MELINDA, DR GEORGE Munoz Attending Unavailable AICHOL, [facility] Primary Care Unavailable MELINDA, DR GEORGE Munoz Admitting Unavailable NAUN ., KE Consulting Unavailable MIRANDA, LYNDSAY Consulting Unavailable MELINDA, DR GEORGE Munoz Consulting Unavailable NAUN ., KE Attending Unavailable NAUN ., KE Admitting Unavailable AICHHOL, [facility] Primary Care Unavailable NAUN ., KE Consulting Unavailable GIAN HERRING Consulting Unavailable [facility] ZULY Consulting Unavailable [facility], [facility] ZULY Attending Unavailable [facility] ZULY Admitting Unavailable [facility] Primary Care Unavailable MISC, DR DOCTOR Consulting Unavailable MISC, DR BURCH Admitting Unavailable MISC, DR DOCTOR Attending Unavailable AICHOL, [facility] Primary Care Unavailable MISC, DR DOCTOR Consulting Unavailable MISC, DR DOCTOR Attending Unavailable MISC, DR DOCTOR Admitting Unavailable AICHHOL, [facility] Primary Care Unavailable MISC, DOCTOR Admitting Unavailable MISC, DR BURCH Consulting Unavailable MISC, DR DOCTOR Attending Unavailable [facility], [facility] Primary Care Unavailable MISC, DR DOCTOR Admitting Unavailable MISC, DR DOCTOR Consulting Unavailable [facility] Primary Care Unavailable MISC, DR DOCTOR Attending Unavailable MISC, DR DOCTOR Admitting Unavailable MISC, DR DOCTOR Consulting Unavailable AICHHOL, [facility] Primary Care Unavailable MISC, DR DOCTOR Attending Unavailable [facility], [facility] ZULY Consulting Unavailable [facility], [facility] ZULY Attending Unavailable [facility], [facility] ZULY Admitting Unavailable [facility], [facility] Primary Care Unavailable DR MÓNICA JIMENEZ Consulting Unavailable [facility] Primary Care Provider Evan White DO Aichholz [employer]BL[employer], Zuly Primary Care Provider Evan White DO Unavailable [phone] AICHHOLZ, ZULY Primary Care Unavailable AICHHOLZ, ZULY Primary Care Unavailable AICHHOLZ, ZULY Primary Care Unavailable STEVE LATHAM Attending Unavailable AICHHOLZ, ZULY Primary Care Unavailable YEISONSTEVE S Referring Unavailable AICHHOLZ, ZULY Primary Care Unavailable EVAN WHITE Referring UnavailHAKEEM Ponce Attending Unavailable AICHHOLZ, ZULY Primary Care Unavailable DAISHA MAX Referring Unavailable DAISHA MAX Attending Unavailable REBECA OLSEN Attending Unavailable SELF, SELF Referring Unavailable AICHHOLZ, ZULY Primary Care Unavailable AICHHOLZ, ZULY Primary Care Unavailable STEVE LATHAM S Admitting Unavailable CONSULT, INFECTIOUS DISEASE Consulting Unav ailable AICHHOLZ, ZULY Primary Care Unavailable KEVIN SAGE Attending Unavailable STEVE LATHAM Referring Unavailable Momo Verdugo MD Primary Care Provider AICHOLZ, ZULY Attending Unavailable AICHHOLZ, ZULY Attending Unavailable Allergies Allergy Classification Reported Allergen(s) Allergy Type Date of Onset Reaction(s) Facility (1 source) Shellfish; 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: [SHELLFISH DERIVED] Propensity to adverse reactions (disorder) 8 [facility] Repository (20 sources) Shellfish-Derive d Products Propensity to adverse reactions to drug 9 [facility] (1 source) Shellfish Drug allergy (disorder) [facility] Repository Medications Current Medications Medication Drug Class(es) [...] 1 capsule by mouth once daily b hhmxdlk-M-shiss acid (NEPHROCAPS) 1 MG capsule Take 1 [...] itraconazole Fax results to: Dr. White - [phone] Transplant Neph - [phone] Each 0 09/10/2023 Active Drug or medicament (substance) (1 source) Start: 09-10-2023 folic acid 1 mg oral tablet (6 sources) take 1 tablet by mouth once daily folic acid (FOLVITE) 1 MG tablet Take 1 mg by mouth daily 0 Active gabapentin 400 mg oral capsule (20 sources) Anti-epileptic Agent Start: 12-25-2023 End: 03-24-2024 take 1 capsule by mouth at bedtime gabapentin (Neurontin) 400 MG capsule Indications: Other polyneuropathy Take 1 capsule (400 mg) by mouth at bedtime 90 capsule 1 12/25/2023 03/24/2024 Active Start: 06-07-2023 End: 09-11-2023 take 1 capsule [...] and ankle pain. 0 06/12/2020 06/12/2023 Discontinued itraconazole 10 mg/ml oral solution (6 sources) Azole Antifungal Start: 09-10-2023 End: 10-08-2023 take 20 mL by mouth in the morning itraconazole (Sporanox) 10 MG/ML solution Take 20 mL by mouth in the morning and 20 mL before bedtime. 0 09/10/2023 Active Start: 09-06-2023 End: 09-11-2023 take 200 mg by mouth every twelve hours Start: 09-03-2023 End: 09-06-2023 200 mg, Oral, EVERY 8 HOURS, 9 doses, First dose on Marta 09/03/23 at 1700, Last dose on 09/06/23 at 0600 Administer on an empty stomach. Hold tube feeds for 1 hour before and 2 hours after administration. lactulose 39483 mg powder for oral solution (19 sources) [...] 20 tablet 0 05/20/2022 01/16/2023 Discontinued take 2 tablets by mo [facility] in the morning magnesium oxide (Mag-Ox) 400 MG tablet Take 2 tablets by mouth in the morning. 0 Active take 1 tablet by magy th once daily magnesium oxide (MAG-OX) 400 MG tablet Take 400 mg by mouth daily 0 Active midodrine hydrochloride 10 mg oral tablet (20 sources) alpha-Adrenergic Agonist Start: 06-09-2018 Midod rine HCl 10 MG Tab tablet Take 1 tablet by mouth as needed. 0 06/09/2018 Active take 2 tablets by mo ut three times daily as needed midodrine (PROAMATINE) [...] tablet (20 sources) Antimetabolite Immunosuppressant Star t: 1105-19 take 1 tablet by mouth every twelve hours Mycophenolate sodium (MYFORTIC) [address] tablet DR Take 1 tablet by mouth every 12 hours. 60 tablet 5 10/05/2023 Active Start: 09-10-2023 take 1 tablet by magy th every twelve hours mycophenolate (Myfortic) 360 MG EC tablet Take 1 tablet by mouth every 12 (twelve) hours 0 09/10/2023 Active Start: 09-03-2023 End: 09-11-2023 take 360 mg by mouth every twelve hours Start: 05-15-2022 End: 05-20-2022 take 1 tablet by mouth every twelve hours 360 mg, Oral, EVERY 12 HOURS NON-STANDARD, First dose on Marta 05/15/22 at 2245, Until Discontinued Give on an empty stomach. Swallow tablet whole; do not split, crush, or chew. Start: 03-15-2021 End: 09-10-2023 rifAXIMin 550 mg oral tablet (12 sources) [...] 07/17/2018 Active take 2 tablets by mo uth three times daily at mealtime sevelamer (RENVELA) [...] Calcineurin Inhibitor Immunosuppressant Start: 09-10-2023 End: 01-09-2024 Prograf 0.2 MG pack Start: 09-04-2023 End: 09-08-2023 take 0.5 mg by mouth once daily 0.5 mg, Oral, DAILY, F irst dose (after last modification) on Thu09/04/23 at 0900, Until Discontinued Do not split, break, crush, or open doses of this medication. Contact pharmacy if altered dose or route needed. Start: 03-10-2023 take 0.2 mg by mouth once daily, then take 1 capsule by mouth two times weekly tacrolimus (Prograf) 0.5 MG capsule Take 0.2 mg by mouth 1 (one) time each day Twice a week (Thursday & Thursday) 0 03/10/2023 Active Start: 03-10-2023 End: 09-10-2023 take 0.5 mg by mouth every twelve hours 0.5 mg, Oral, EVERY 12 HOURS, First dose on Thu08/28/23 at 2100, Until Discontinued Do not split, break, crush, or open doses of this medication. Contact pharmacy if altered dose or route needed. Start: 08-20-2022 take 1 capsule by mo uth every twelve hours Tacrolimus (PROGRAF) 0.5 MG [...] needed. Start: 03-14-2022 take 1 capsule by mo uth every twelve hours tacrolimus (PROGRAF) 0.5 MG capsule Indications: -donor kidney transplant recipient , Liver transplant recipient Take 2 capsules by mouth every 12 hours. 360 capsule 1 03/14/2022 Active Start: 01-11-2021 take 1 capsule by mo uth twice daily tacrolimus (generic) 0.5 MG capsule Indications: Liver transplant recipient , -donor kidney transplant recipient Take 3 capsules by mouth 2 times daily. 180 capsule 5 01/11/2021 Active tamsulosin hydrochloride 0.4 mg oral capsule (20 sources) alpha-Adrenergic Ibrahima Start: 11-03-2023 End: 02-01-2024 take 1 capsule by mouth every twenty-four hours in the morning tamsulosin (Flomax) 0.4 MG 24 hr capsule Indications: Kidney stones Take 1 capsule (0.4 mg) by mouth in the morning. 90 capsule 1 11/03/2023 02/01/2024 Active Start: 06-16-2023 End: 09-11-2023 take 1 capsule by mouth once daily Tamsulosin HCl 0.4 MG capsule take 1 capsule by mouth once daily 90 capsule 3 06/16/2023 Active Start: 06-08-2023 take 1 capsule by mo uth once daily Tamsulosin HCl 0.4 MG capsule take 1 capsule by mouth once daily 30 capsule 11 06/08/2023 Active Start: 06-19-2022 take 1 capsule by mo uth once daily Tamsulosin HCl 0.4 MG capsule Take 1 capsule by mouth daily. 30 capsule 11 06/19/2022 Active Start: 05-23-2022 take 1 capsule by mo uth once daily Tamsulosin HCl 0.4 MG capsule [...] 4 HOURS NEEDED, Starting on Thu08/29/23 at 2325, Until Thu08/31/23 at 0732, Oral temp > 100.4 F, [...] 200 mg, Oral, DAILY, First dose on Thu08/29/23 at 0900, Until Discontinued Start: 01-15-2023 take 2 tablets by [facility] in the morning allopurinol (Zyloprim) 100 MG tablet Take 2 tablets by mouth in the morning. 0 01/15/2023 Active Start: 05-17-2022 End: 05-20-2022 allopurinol (ZYLOPRIM) table t 100 mg Start: 05-16-2022 End: 05-16-2022 take 200 mg by mouth once daily 200 mg, Oral, DAILY, F irst dose on Thu05/16/22 at 0900, Until Discontinued Start: 12-30-2021 take 2 tablets by [facility] once daily allopurinol 100 MG tablet Indications: Abnormal blood chemistry take 2 tablets by mouth once daily 180 tablet 3 12/30/2021 Active Start: 01-28-2021 take 2 tablets by mo [facility] once daily allopurinol 100 MG tablet Indications: Abnormal blood chemistry Take 2 tablets by mouth daily. 180 tablet 3 01/28/2021 Active amLODIPine 5 mg oral tablet (20 sources) Dihydropyridine Calcium Channel Ibrahima Start: 12-13-2022 End: 09-02-2023 take 5 mg by mouth once daily 5 mg, Oral, DAILY, First dose on Sat 23 at 0900, Until Discontinued Start: 12-13-2022 End: 09-11-2023 take 5 mg by mouth every twenty-four hours 5 mg, Oral, EVERY 24 HOURS, First dose on Thu09/03/23 at 2100, Until Discontinued Start: 05-16-2022 End: 05-20-2022 take 5 mg by mouth once daily 5 mg, Oral, DAILY, First dose on Thu05/16/22 at 0900, Until Discontinued aspirin 81 mg chewable tablet (20 sources) Platelet Aggregation Inhibitor, Nonsteroidal Anti-inflammatory Drug Start: 10-08-2020 End: 09-11-2023 take 81 mg by mouth once daily 81 mg, Oral, DAILY, First dose on Thu08/29/23 at 0900, Until Discontinued atorvastatin 20 mg oral tablet (20 sources) [...] (VISIPAQUE) injection 320 mg/mL for [facility] IR 10 ml lidocaine hydrochloride 10 mg/ml injection [...] mouth twice a day 60 tablet 11 01/05/2023 Active Start: 01-06-2022 End: 05-20-2022 take [...] Start: 09-06-2020 take 1 tablet by magy once daily multivitamin w/ minerals tablet Take [...] magy th every eight hours as needed for nausea and vomiting ondansetron (Zofran) 4 MG tablet Take 1 tablet by mouth every 8 (eight) hours if needed for nausea or vomiting 0 Active ondansetron 4mg/2ml (ZOFRAN) injection 4 [...] (ROXICODONE) tablet 10 mg polyethylene glycol 3350 87566 mg powder for oral solution (20 sources) [...] 20 mEq, Oral, ONCE, 1 dose, On 09/04/23 at 1245 Swallow tablets whole; do not [...] ( K-PHOS NEUTRAL) tablet 1,000 mg sennosides, snf 8.6 mg oral tablet (1 source) Start: [...] spray, Right Nostril, N EEDED, Starting on Thu08/31/23 at 2142, Until Thu09/11/23 [...] over 2 Hours, ONCE, 1 dose, On Marta 09/03/23 at 1630 Amphotericin B liposomal is NOT [...] Active Problems Problem Classification Problem Date Documented Da te Episodic/Chronic Abdominal pain (2 sources) Generalized abdominal pain; 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: [Generalized abdominal pain] Onset: 3 11-03-2023 Episodic Acute and unspecified renal failure (20 sources) Acute injury of kidney; 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: [Acute kidney failure, unspecified] Onset: 2 Episodic Alcohol-related disorders (20 sources) Alcoholic cirrhosis; 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: [Alcoholic cirrhosis of liver without ascites] Onset: 8 10-05-2018 Chronic Anxiety disorders (4 sources) Generalized anxiety disorder; 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: [Generalized anxiety disorder] Onset: 3 11-03-2023 Chronic Calculus of urinary tract (3 sources) Calculus of ureter; 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: [Kidney stone] Onset: 2 11-03-2023 Episodic Chronic kidney disease (20 sources) End stage renal failure on dialysis; 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: [End-stage renal disease] Onset: 8 06-22-2018 Chronic Complication of device; implant or graft (2 sources) Complication of dialysis; 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: [Unspecified complication of cardiac and vascular prosthetic device, implant and graft, initial encounter] Onset: 3 11-03-2023 Episodic Coronary atherosclerosis and other heart disease (20 sources) Coronary arteriosclerosis; 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: [Atherosclerotic heart disease of [place] coronary artery without angina pectoris] Onset: 3 04-22-2020 Chronic Deficiency and other anemia (2 sources) Anemia; 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: [Anemia, unspecified] Onset: 3 11-03-2023 Episodic Diabetes mellitus without complication (2 sources) Hyperglycemia; 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: [Hyperglycemia, unspecified] Onset: 3 11-03-2023 Episodic Disorders of lipid metabolism (6 sources) Mixed hyperlipidemia; 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: [Hyperlipidemia, unspecified] Onset: 3 Chronic Esophageal disorders (2 sources) Gastroesophageal reflux disease; 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: [Gastro-esophageal reflux disease without esophagitis] Onset: 3 11-03-2023 Chronic Essential hypertension (20 sources) Benign essential hypertension; 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: [Essential (primary) hypertension] Onset: 2 04-22-2020 Chronic Gastrointestinal hemorrhage (2 sources) Gastrointestinal hemorrhage; 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: [Gastrointestinal hemorrhage, unspecified] Onset: 3 11-03-2023 Episodic Genitourinary symptoms and ill-defined conditions (1 source) Finding of urological device; 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: [Encounter for attention to other artificial openings of urinary tract] Chronic Headache; including migraine (1 source) Headache; including migraine; 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: [HEADACHE UNSPECIFIED] Onset: 2 Hyperplasia of prostate (5 sources) Benign prostatic hypertrophy with outflow obstruction; 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: [Benign prostatic hyperplasia with lower urinary tract symptoms] Onset: 2 Chronic Hypertension with complications and secondary hypertension (3 sources) Renal hypertension; 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: [Hypertension secondary to other renal disorders] Onset: 3 08-28-2023 Chronic Immunity disorders (15 sources) Immunosuppression; 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: [Immunodeficiency, unspecified] Onset: 2 Chronic Nausea and vomiting (20 sources) Nausea and vomiting; 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: [Nausea with vomiting, unspecified] Onset: 0 05-10-2020 Episodic Other aftercare (3 sources) Transplant follow-up; 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: [Encounter for aftercare following other organ transplant] Chronic Other aftercare (3 sources) Encounter for aftercare following other organ transplant; 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: [ENC AFTERCARE FLW OTH ORGN TRANSPL] Onset: 3 Chronic Other aftercare (1 source) Follow-up status; 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: [Encounter for follow-up examination after completed treatment for conditions other than malignant neoplasm] Episodic Other aftercare (2 sources) Taking high risk medication; 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: [Other nursing home (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] Episodic Other aftercare (3 sources) Other nursing home (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; 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: [OTH NURSING HOME 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 THERAPY] Onset: 2 Episodic Other and ill-defined heart disease (2 sources) Dysfunction of papillary muscle; 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: [Other ill-defined heart diseases] Onset: 3 11-03-2023 Chronic Other diseases of kidney and ureters (2 sources) Other specified disorders of kidney and ureter; 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: [Other specified disorders of kidney and ureter] Onset: 3 Chronic Other diseases of kidney and ureters (4 sources) Hydronephrosis; 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: [Hydronephrosis with ureteral stricture, not elsewhere classified] Episodic Other liver diseases (2 sources) Cirrhosis of liver Chronic Other liver diseases (1 source) Cirrhosis and chronic liver disease; 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: [Unspecified cirrhosis of liver] Onset: 0 04-12-2020 Chronic Other liver diseases (20 sources) Chronic liver disease; 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: [Unspecified cirrhosis of liver] Onset: 0 04-12-2020 Chronic Other liver diseases (5 sources) Liver transplant status; 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: [Liver transplant status] Onset: 0 Chronic Other lower respiratory disease (1 source) Hypoxia; 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: [Hypoxemia] 09-10-2023 Episodic Other lower respiratory disease (2 sources) Hypoxemia; 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: [Hypoxemia] Onset: 3 Episodic Other lower respiratory disease (2 sources) Dyspnea; 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: [Shortness of breath] Onset: 4 01-06-2024 Episodic Other nervous system disorders (2 sources) Peripheral nerve disease ; 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: [Polyneuropathy, unspecified] Onset: 4 12-03-2023 Chronic Other nervous system disorders (3 sources) Tremor; 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: [Tremor, unspecified] Onset: 3 11-03-2023 Episodic Other nutritional; endocrine; and metabolic disorders (20 sources) Obese class I; 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: [Obesity, unspecified] Onset: 0 04-09-2020 Chronic Other nutritional; endocrine; and metabolic disorders (1 source) Obesity; 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: [Obesity, unspecified] Onset: 3 11-03-2023 Chronic Other nutritional; endocrine; and metabolic disorders (2 sources) Body mass index 30+ - obesity; 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: [Obesity, unspecified] Onset: 3 01-06-2024 Chronic Other screening for suspected conditions (not mental disorders or infectious disease) (3 sources) CT of chest abnormal; 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: [Abnormal findings on diagnostic imaging of other specified body structures] Onset: 3 09-02-2023 Chronic Other screening for suspected conditions (not mental disorders or infectious disease) (18 sources) Abnormal quantity of physiologic substance; 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: [Blood chemistry abnormal] Onset: 8 06-22-2018 Episodic Peripheral and visceral atherosclerosis (1 source) Atherosclerosis of aorta; 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: [Atherosclerosis of aorta] 01-06-2024 Chronic Residual codes; unclassified (20 sources) Awaiting transplantation of liver; 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: [Awaiting organ transplant status] Onset: 9 04-12-2020 Chronic Residual codes; unclassified (3 sources) Obstructive sleep apnea syndrome; 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: [Obstructive sleep apnea (adult) (pediatric)] Onset: 3 11-21-2023 Chronic Residual codes; unclassified (3 sources) Other general symptoms and signs; 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: [Other general symptoms] Onset: 3 08-25-2023 Episodic Residual codes; unclassified (2 sources) Bilateral lower limb edema; 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: [Localized edema] Onset: 4 01-06-2024 Episodic Residual codes; unclassified (1 source) Insomnia; 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: [Insomnia, unspecified] Onset: 4 01-06-2024 Episodic Respiratory failure; insufficiency; arrest (adult) (3 sources) Acute respiratory failure; 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: [Acute respiratory failure with hypoxia] Onset: 3 09-02-2023 Episodic Unclassified (17 sources) Awaiting transplantation of liver; 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: [Pre-transplant evaluation for liver transplant] Onset: 8 10-05-2018 Unclassified (1 source) CONTACT W/AND (SUSP) EXPOS COVID-19; 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: [CONTACT W/AND (SUSP) EXPOS COVID-19] Onset: 2 Unclassified (7 sources) New Patient Onset: 3 03-26-2023 Unclassified (7 sources) Access to Medication(s) Onset: 3 03-26-2023 Unclassified (7 sources) Safety: Avoid toxicity that would cause discontinuation Onset: 3 03-26-2023 Unclassified (7 sources) Identify and eliminate barriers to patient adherence Onset: 3 03-26-2023 Unclassified (7 sources) Ensure that patient is receiving therapeutic benefit Onset: 3 03-26-2023 Past or Other Problems Problem Classification Problem Date Documented Date Episodic/Chronic Complications of surgical procedures or medical care [...] unspecified; 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: [Hematuria, unspecified] Onset: 05-11-2022 Episodic Mycoses (8 sources) Histoplasmosis; 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: [Histoplasmosis, unspecified] Onset: 08-28-2023 09-10-2023 Episodic Other aftercare (1 source) 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; 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: [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 KEEPER CURRENT USE OF ASPIRIN] Onset: 06-20-2022 Episodic [...] Test Name Value Interpretation Reference Range Facility ALL CBC WITH AUTO DIFFon BASOPHILS ABSOLUTE AUTO 0.0 [facility] Basophils/100 WBC (Bld) 0.5 % 0.2 - 2.0 % [facility] Eosinophils/100 WBC (Bld) 2.6 % 0.9 - 7.0 % [facility] Erythrocyte distribution width (RBC) [Ratio] 13.5 % 11.0 - 15.0 % [facility] Hematocrit (Bld) [Volume fraction] 43.8 % 42.0 - 54.0 % [facility] Hemoglobin (Bld) [Mass/Vol] 14.0 g/dL 14.0 - 18.0 g/dL [facility] IMMATURE GRANULOCYTES ABS AUTO 0.00 [facility] Immature granulocytes/100 WBC (Bld) 0.0 % 0.0 - 0.5 % [facility] Interpretation and review of laboratory results Abnormal [facility] LYMPHOCYTES ABSOLUTE AUTO 1.8 [facility] Lymphocytes/100 WBC (Bld) 45.2 % 20.5 - 60.0 % [facility] MCH (RBC) [Entitic mass] 27.9 pg 25.9 - 34.0 pg [facility] MCHC (RBC) [Mass/Vol] 32.0 g/dL 29.9 - 35.2 g/dL [facility] MCV (RBC) [Entitic vol] 87.4 fL 80.0 - 94.0 fL [facility] MONOCYTES ABSOLUTE AUTO 0.4 [facility] Monocytes/100 WBC (Bld) 9.6 % 1.7 - 12.0 % [facility] NEUTROPHILS ABSOLUTE AUTO 1.6 [facility] Neutrophils/100 WBC (Bld) 42.1 % Low 43.0 - 75.0 % [facility] Platelet mean volume (Bld) [Entitic vol] 9.8 fL 9.5 - 13.5 fL [facility] TBH EO # 0.1 [facility] TBH PLT 180 [facility] TB RBC 5.01 [facility] TB WBC 3.9 Low [facility] CHEM 7 (LYTES,BUN,CREA,GLUC) on 09-11-2023 Anion gap [Moles/Vol] 13 mmol/L Normal 7-17 [facility] Comment on above: Performed By: #### C HM7, MGO ####[facility] (DEFAULT)[address] [place] [address] Chloride [Moles/Vol] 111 mmol/L High 98-108 [facility] Comment on above: Performed By: #### C HM7, MGO ####[facility] (DEFAULT)[address] [place] [address] CO2 [Moles/Vol] 20 mmol/L Low 21-31 [facility] Comment on above: Performed By: #### C HM7, MGO ####[facility] (DEFAULT)[address] [place] [address] Creatinine [Mass/Vol] 1.13 mg/dL Normal 0.70-1.30 [facility] Comment on above: Performed By: #### C HM7, MGO ####[facility] (DEFAULT)[address] [facility] [place] [address] GFR/1.73 sq M.predicted among non-blacks MDRD (S/P/Bld) [Vol rate/Area] 78 mL/min/{1.73_m2} Normal >=60 [facility] Comment on above: Result Comment: Repo rted eGFR is based on the CKD-EPI 2020 equation using creatinine, age, and sex. Performed By: #### C HM7, MGO ####[facility] (DEFAULT)[address] [facility] [place] [address] Glucose [Mass/Vol] 109 mg/dL High 70-99 [facility] Comment on above: Performed By: #### C HM7, MGO ####[facility] (DEFAULT)[address] [facility] [place] [address] Osmolality [Osmolality] 295 mosm/kg Normal 278-305 [facility] Comment on above: Performed By: #### C HM7, MGO ####[facility] (DEFAULT)[address] [facility] [place] [address] Potassium [Moles/Vol] 4.3 mmol/L Normal 3.5-5.0 [facility] Comment on above: Performed By: #### C HM7, MGO ####[facility] (DEFAULT)[address] [place] [address] Sodium [Moles/Vol] 140 mmol/L Normal 135-145 [facility] Comment on above: Performed By: #### C HM7, MGO ####[facility] (DEFAULT)[address] [place] [address] Urea nitrogen [Mass/Vol] 16 mg/dL Normal 7-25 [facility] Comment on above: Performed By: #### C HM7, MGO ####[facility] (DEFAULT)[address] [place] [address] Urea nitrogen/Creatinine [Mass ratio] 14 mg/mg Normal [facility] Comment on above: Performed By: #### C HM7, MGO ####[facility] (DEFAULT)[address] [place] [address] Anion gap [Moles/Vol] 13 mmol/L 7 - 17 mmol/L [facility] Chloride [Moles/Vol] 111 mmol/L High 98 - 10 8 mmol/L [facility] CO2 [Moles/Vol] 20 mmol/L Low 21 - 31 mmol/L [facility] Creatinine [Mass/Vol] 1.13 mg/dL 0.70 - 1.30 mg/dL [facility] eGFR, CKD-EPI, Male 78 - [facility]F [facility] Glucose [Mass/Vol] 109 mg/dL High 70 - 99 mg/dL [facility] Interpretation and review of laboratory results Abnormal [facility] Osmolality Calc [Osmolality] 295 [facility] Potassium [Moles/Vol] 4.3 mmol/L 3.5 - 5.0 mmol/L [facility] Sodium [Moles/Vol] 140 mmol/L 135 - 145 mmol/L [facility] Urea nitrogen [Mass/Vol] 16 mg/dL 7 - 25 mg/dL [facility] Urea nitrogen/Creatinine [Mass ratio] 14 mg/mg [facility] GLUCOSE POCon 09-11-2023 Glucose [Mass/Vol] 108 mg/dL High 70 - 99 mg/dL [facility] Interpretation and review of laboratory results Abnormal [facility] POC Sample Type CAPBL [facility] Legionella sp identified Org specific cx Nom (Unsp spec)on 09-11-2023 Bacteria identified Cx Nom (Unsp spec) NO GROWTH DAY 7 OF 7 [facility] MAGNESIUMon 09-11-2023 Magnesium [Mass/Vol] 1.6 mg/dL Normal 1.6-2.6 [facility] Comment on above: Performed By: #### C HM7, MGO ####[facility] (DEFAULT)[address] [place] [address] Interpretation and review of laboratory results Normal [facility] Magnesium [Mass/Vol] 1.6 mg/dL 1.6 - 2 .6 mg/dL [facility] No Panel Informationon 09-11 [facility] TACROLIMUS LEVEL, TROUGH (ID E DRUG LEVEL)on 09-11-2023 Interpretation and review of laboratory results Normal [facility] Tacrolimus (Bld) [Mass/Vol] 11.5 ng/mL [facility] [place] [facility] Tacrolimus, Trough 11.5 ng/mL Normal Bone Susana ow Transplant: 4.0-12.0, Therapeutic: 5.0-15.0 [facility] Comment on above: Order Comment: Pleas e draw at specified interval PRIOR to dose. Do not hold dose to wait for level. Specimens batched twice per day, (M-F) and once per day weekendsMethod performed is a chemiluminescent microparticle immunoasssay on the [employer] i2000.The range is based on experience at [facility] and users should be aware that target concentrations vary widely depending on concomitant therapy, time post-transplant, and desired degree of immunosuppression. Performed By: #### T ACRO ####[facility] (DEFAULT)[address] [place] [address] CBC,PLATELETSon 09-10-2023 Hematocrit (Bld) [Volume fraction] 40.0 % Normal 39.6-48.8 [facility] Comment on above: Performed By: #### H EMO ####[facility] (DEFAULT)[address] [place] [address] Hemoglobin (Bld) [Mass/Vol] 12.7 g/dL Low 13.4-16.8 [facility] Comment on above: Performed By: #### H EMOGC ####[facility] (DEFAULT)[address] [place] [address] MCV (RBC) [Entitic vol] 86.0 fL Normal 79.0-94.5 [facility] Comment on above: Performed By: #### H EMOGC ####[facility] (DEFAULT)[address] [facility] [place] [address] Mean Cell Hgb 27.3 pg Normal 26.1-33.3 [facility] Comment on above: Performed By: #### H EMOGC ####[facility] (DEFAULT)[address] [facility] [place] [address] Mean Cell Hgb Conc 31.8 g/dL Low 31.9-36.5 [facility] Comment on above: Performed By: #### H EMOGC ####[facility] (DEFAULT)[address] [facility] [place] [address] Platelet mean volume (Bld) [Entitic vol] 9.5 fL Normal 8.7-12.3 [facility] Comment on above: Performed By: #### H EMOGC ####[facility] (DEFAULT)[address] [place] [address] Platelets (Bld) [#/Vol] 225 10*3/uL Normal 146-337 [facility] Comment on above: Performed By: #### H EMOGC ####[facility] (DEFAULT)[address] [facility] [place] [address] RBC (Bld) [#/Vol] 4.65 10*6/uL Normal 4.38-5.83 [facility] Comment on above: Performed By: #### H EMOGC ####[facility] (DEFAULT)[address] [facility] [place] [address] RBC Distribution 13.9 % Normal 10.9-14.3 [facility] Comment on above: Performed By: #### H [facility] ####[facility] (DEFAULT)[address] [place] [address] WBC (Bld) [#/Vol] 6.52 10*3/uL Normal 3.73-10.10 [facility] Comment on above: Performed By: #### H [facility] ####[facility] (DEFAULT)[address] [place] [address] Erythrocyte distribution width (RBC) [Ratio] 13.9 % 10.9 - 14.3 % [facility] Hematocrit (Bld) [Volume fraction] 40.0 % 39.6 - 48.8 % [facility] Hemoglobin (Bld) [Mass/Vol] 12.7 g/dL Low 13.4 - 16.8 g/dL [facility] Interpretation and review of laboratory results Abnormal [facility] MCH (RBC) [Entitic mass] 27.3 pg 26.1 - 33.3 pg [facility] MCHC (RBC) [Mass/Vol] 31.8 g/dL Low 31.9 - 36.5 g/dL [facility] MCV (RBC) [Entitic vol] 86.0 fL 79.0 - 94.5 fL [facility] Platelet mean volume (Bld) [Entitic vol] 9.5 fL 8.7 - 12.3 fL [facility] Platelets (Bld) [#/Vol] 225 10*3/uL 146 - 337 K/uL [facility] RBC (Bld) [#/Vol] 4.65 10*6/uL [facility] WBC (Bld) [#/Vol] 6.52 10*3/uL 3.73 - 10. 10 K/uL [facility] CHEM 7 (LYTES,BUN,CREA,GLUC) on 09-10-2023 Anion gap [Moles/Vol] 13 mmol/L Normal 7-17 [facility] Comment on above: Performed By: #### T ACRO #### [facility] (DEFAULT) [address] [place] [address] Chloride [Moles/Vol] 111 mmol/L High 98-108 [facility] Comment on above: Performed By: #### T ACRO #### [facility] (DEFAULT) [address] [place] [address] CO2 [Moles/Vol] 20 mmol/L Low 21-31 [facility] Comment on above: Performed By: #### T ACRO #### [facility] (DEFAULT) [address] [place] [address] Creatinine [Mass/Vol] 1.27 mg/dL Normal 0.70-1.30 [facility] Comment on above: Performed By: #### T ACRO #### [facility] (DEFAULT) [address] [place] [address] GFR/1.73 sq M.predicted among non-blacks MDRD (S/P/Bld) [Vol rate/Area] 68 mL/min/{1.73_m2} Normal >=60 [facility] Comment on above: Result Comment: Repo rted eGFR is based on the CKD-EPI 2020 equation using creatinine, age, and sex. Performed By: #### T ACRO #### [facility] (DEFAULT) [address] [place] [address] Glucose [Mass/Vol] 100 mg/dL High 70-99 [facility] Comment on above: Performed By: #### T ACRO #### [facility] (DEFAULT) [address] [place] [address] Osmolality [Osmolality] 293 mosm/kg Normal 278-305 [facility] Comment on above: Performed By: #### T ACRO #### [facility] (DEFAULT) [address] [place] [address] Potassium [Moles/Vol] 4.4 mmol/L Normal 3.5-5.0 [facility] Comment on above: Performed By: #### T ACRO #### [facility] (DEFAULT) [address] [place] [address] Sodium [Moles/Vol] 140 mmol/L Normal 135-145 [facility] Comment on above: Performed By: #### T ACRO #### [facility] (DEFAULT) [address] [place] [address] Urea nitrogen [Mass/Vol] 12 mg/dL Normal 7-25 [facility] Comment on above: Performed By: #### T ACRO #### [facility] (DEFAULT) [address] [place] [address] Urea nitrogen/Creatinine [Mass ratio] 9 mg/mg Normal [facility] Comment on above: Performed By: #### T ACRO #### [facility] (DEFAULT) [address] [place] [address] Anion gap [Moles/Vol] 13 mmol/L 7 - 17 mmol/L [facility] Chloride [Moles/Vol] 111 mmol/L High 98 - 10 8 mmol/L [facility] CO2 [Moles/Vol] 20 mmol/L Low 21 - 31 mmol/L [facility] Creatinine [Mass/Vol] 1.27 mg/dL 0.70 - 1.30 mg/dL [facility] eGFR, CKD-EPI, Male 68 - PINF [facility] Glucose [Mass/Vol] 100 mg/dL High 70 - 99 mg/dL [facility] Osmolality Calc [Osmolality] 293 [facility] Potassium [Moles/Vol] 4.4 mmol/L 3.5 - 5.0 mmol/L [facility] Sodium [Moles/Vol] 140 mmol/L 135 - 145 mmol/L [facility] Urea nitrogen [Mass/Vol] 12 mg/dL 7 - 25 mg/dL [facility] Urea nitrogen/Creatinine [Mass ratio] 9 mg/mg [facility] HEPATIC FUNCTION PANELon Albumin [Mass/Vol] 3.3 g/dL Low 3.5-5.0 [facility] Comment on above: Performed By: #### T ACRO #### [facility] (DEFAULT) [address] [place] [address] ALP [Catalytic activity/Vol] 143 U/L High 32-126 [facility] Comment on above: Performed By: #### T ACRO #### [facility] (DEFAULT) [address] [place] [address] ALT [Catalytic activity/Vol] 28 U/L Normal 10-52 [facility] Comment on above: Performed By: #### T ACRO #### [facility] (DEFAULT) [address] [place] [address] AST [Catalytic activity/Vol] 29 U/L Normal 10-39 [facility] Comment on above: Performed By: #### T ACRO #### [facility] (DEFAULT) [address] [place] [address] Bilirubin [Mass/Vol] 0.9 mg/dL Normal <1.5 [facility] Comment on above: Performed By: #### T ACRO #### [facility] (DEFAULT) [address] [place] [address] Bilirubin.indirect [Mass/Vol] 0.2 mg/dL Normal <0.3 [facility] Comment on above: Performed By: #### T ACRO #### [facility] (DEFAULT) [address] [place] [address] Protein [Mass/Vol] 6.8 g/dL Normal 6.4-8.3 [facility] Comment on above: Performed By: #### T ACRO #### [facility] (DEFAULT) [address] [place] [address] Albumin [Mass/Vol] 3.3 g/dL Low 3.5 - 5.0 g/dL [facility] ALP [Catalytic activity/Vol] 143 U/L High 32 - 126 U/L [facility] ALT [Catalytic activity/Vol] 28 U/L 10 - 52 U/L [facility] AST [Catalytic activity/Vol] 29 U/L 10 - 39 U/L [facility] Bilirubin [Mass/Vol] 0.9 mg/dL NINF - 1.5 mg/dL [facility] Bilirubin.direct [Mass/Vol] 0.2 mg/dL NINF - 0.3 mg/dL [facility] Protein [Mass/Vol] 6.8 g/dL 6.4 - 8.3 g/dL [facility] MAGNESIUMon 09-10-2023 Magnesium [Mass/Vol] 1.9 mg/dL Normal 1.6-2.6 [facility] Comment on above: Performed By: #### T ACRO #### [facility] (DEFAULT) [address] [place] [address] Interpretation and review of laboratory results Normal [facility] Magnesium [Mass/Vol] 1.9 mg/dL 1.6 - 2 .6 mg/dL [facility] No Panel Informationon 09-10 Interpretation and review of laboratory results Abnormal [facility] TACROLIMUS LEVEL, TROUGH (ID E DRUG LEVEL)Ordered By: Jimy Castillo on 09-10-2023 Interpretation and review of laboratory results Normal [facility] Tacrolimus (Bld) [Mass/Vol] 11.8 ng/mL [facility] [place] TACROLIMUS LEVEL, TROUGH (ID E DRUG LEVEL)on 09-10-2023 Tacrolimus, Trough 11.8 ng/mL Normal Bone Susana ow Transplant: 4.0-12.0, Therapeutic: 5.0-15.0 [facility] Comment on above: Order Comment: Pleas e draw at specified interval PRIOR to dose. Do not hold dose to wait for level. Specimens batched twice per day, (M-F) and once per day weekends Method performed is a chemiluminescent microparticle immunoasssay on the [employer] i2000. The range is based on experience at [facility] and users should be aware that target concentrations vary widely depending on concomitant therapy, time post-transplant, and desired degree of immunosuppression. Performed By: #### T ACRO #### [facility] (DEFAULT) [address] [place] [address] CHEM 7 (LYTES,BUN,CREA,GLUC) on 09-09-2023 Anion gap [Moles/Vol] 14 mmol/L Normal 7-17 [facility] Comment on above: Performed By: #### C HM7, IPB, MGO ####[facility] (DEFAULT)[address] [place] [address] Chloride [Moles/Vol] 113 mmol/L High 98-108 [facility] Comment on above: Performed By: #### C HM7, IPB, MGO ####[facility] (DEFAULT)[address] [place] [address] CO2 [Moles/Vol] 18 mmol/L Low 21-31 [facility] Comment on above: Performed By: #### C HM7, IPB, MGO ####[facility] (DEFAULT)[address] [place] [address] Creatinine [Mass/Vol] 1.03 mg/dL Normal 0.70-1.30 [facility] Comment on above: Performed By: #### C HM7, IPB, MGO ####[facility] (DEFAULT)[address] [place] [address] GFR/1.73 sq M.predicted among non-blacks MDRD (S/P/Bld) [Vol rate/Area] 87 mL/min/{1.73_m2} Normal >=60 [facility] Comment on above: Result Comment: Repo rted eGFR is based on the CKD-EPI 2020 equation using creatinine, age, and sex. Performed By: #### C HM7, IPB, MGO ####[facility] (DEFAULT)[address] [place] [address] Glucose [Mass/Vol] 106 mg/dL High 70-99 [facility] Comment on above: Performed By: #### Chinedu HM7, IPB, MGO ####[facility] (DEFAULT)[address] [place] [address] Osmolality [Osmolality] 294 mosm/kg Normal 278-305 [facility] Comment on above: Performed By: #### Chinedu HM7, IPB, MGO ####[facility] (DEFAULT)[address] [place] [address] Potassium [Moles/Vol] 4.0 mmol/L Normal 3.5-[facility].0 [facility]: Performed By: #### Chinedu MEDLYE, IPB, MGO ####[facility] (DEFAULT)[address] [place] [address] Sodium [Moles/Vol] 141 mmol/L Normal 135-145 [facility] Comment on above: Performed By: #### Chineud MEDLEY, IPB, MGO ####[facility] (DEFAULT)[address] [place] [address] Urea nitrogen [Mass/Vol] 10 mg/dL Normal 7-25 [facility] Comment on above: Performed By: #### Chinedu WORTH[place]7, IPB, MGO ####[facility] (DEFAULT)[address] [place] [address] Urea nitrogen/Creatinine [Mass ratio] 10 mg/mg Normal [facility] Comment on above: Performed By: #### Chinedu HMJessica, IPB, MGO ####[facility] (DEFAULT)[address] [place] [address] Anion gap [Moles/Vol] 14 mmol/L 7 - 17 mmol/L [facility] Chloride [Moles/Vol] 113 mmol/L High 98 - 10 8 mmol/L [facility] CO2 [Moles/Vol] 18 mmol/L Low 21 - 31 mmol/L [facility] Creatinine [Mass/Vol] 1.03 mg/dL 0.70 - 1.30 mg/dL [facility] eGFR, CKD-EPI, Male 87 - PINF [facility] Glucose [Mass/Vol] 106 mg/dL High 70 - 99 mg/dL [facility] Interpretation and review of laboratory results Abnormal [facility] Osmolality Calc [Osmolality] 294 [facility] Potassium [Moles/Vol] 4.0 mmol/L 3.5 - 5.0 mmol/L [facility] Sodium [Moles/Vol] 141 mmol/L 135 - 145 mmol/L [facility] Urea nitrogen [Mass/Vol] 10 mg/dL 7 - 25 mg/dL [facility] Urea nitrogen/Creatinine [Mass ratio] 10 mg/mg [facility] MAGNESIUMon 09-09-2023 Magnesium [Mass/Vol] 1.6 mg/dL Normal 1.6-2.6 [facility] Comment on above: Performed By: #### C JO ANN MEDLEY, MGO ####[facility] (DEFAULT)[address] [place] [address] Magnesium [Mass/Vol] 1.6 mg/dL 1.6 - 2 .6 mg/dL [facility] No Panel Informationon 09-09 Interpretation and review of laboratory results Normal [facility] PHOSPHATE, INORGANICon 09-09 Phosphorous 3.8 mg/dL Normal 2.2-4.6 [facility] Comment on above: Performed By: #### C JO ANN MEDLEY, MGO ####[facility] (DEFAULT)[address] [place] [address] Phosphate [Mass/Vol] 3.8 mg/dL 2.2 - 4 .6 mg/dL [facility] TACROLIMUS LEVEL, TROUGH (ID E DRUG LEVEL)on 09-09-2023 Interpretation and review of laboratory results Normal [facility] Tacrolimus (Bld) [Mass/Vol] 9.2 ng/mL [facility] [place] Tacrolimus, Trough 9.2 ng/mL Normal Bone Susana ow Transplant: 4.0-12.0, Therapeutic: 5.0-15.0 [facility] Comment on above: Order Comment: Dilan gregory draw at specified interval PRIOR to dose. Do not hold dose to wait for level. Specimens batched twice per day, (M-F) and once per day weekendsMethod performed is a chemiluminescent microparticle immunoasssay on the [employer] i2000.The range is based on experience at [facility] and users should be aware that target concentrations vary widely depending on concomitant therapy, time post-transplant, and desired degree of immunosuppression. Performed By: #### [facility] #### [facility] (DEFAULT) [address] [address] CBC,PLATELETSon 09-08-2023 Hematocrit (Bld) [Volume fraction] 36.1 % Low 39.6-48.8 [facility] Comment on above: Performed By: #### T ACRO #### [facility] (DEFAULT) [address] [address] Hemoglobin (Bld) [Mass/Vol] 11.6 g/dL Low 13.4-16.8 [facility] Comment on above: Performed By: #### T ACRO #### [facility] (DEFAULT) [address] [address] MCV (RBC) [Entitic vol] 85.1 fL Normal 79.0-94.5 [facility] Comment on above: Performed By: #### T ACRO #### [facility] (DEFAULT) [address] [address] Mean Cell Hgb 27.4 pg Normal 26.1-33.3 [facility] Comment on above: Performed By: #### T ACRO #### [facility] (DEFAULT) [address] [address] Mean Cell Hgb Conc 32.1 g/dL Normal 31.9-36.5 [facility] Comment on above: Performed By: #### T ACRO #### [facility] (DEFAULT) [address] [place] [address] Platelet mean volume (Bld) [Entitic vol] 9.5 fL Normal 8.7-12.3 [facility] Comment on above: Performed By: #### T ACRO #### [facility] (DEFAULT) [address] [place] [address]11 Platelets (Bld) [#/Vol] 182 10*3/uL Normal 146-337 [facility] Comment on above: Performed By: #### T ACRO #### [facility] (DEFAULT) [address] [place] [address] 12808 RBC (Bld) [#/Vol] 4.24 10*6/uL Low 4.38-5.83 [facility] Comment on above: Performed By: #### T ACRO #### [facility] (DEFAULT) [address] [place] [address]37 RBC Distribution 13.6 % Normal 10.9-14.3 [facility] Comment on above: Performed By: #### T ACRO #### [facility] (DEFAULT) [address] [place] [address]92 WBC (Bld) [#/Vol] 4.59 10*3/uL Normal 3.73-10.10 [facility] Comment on above: Performed By: #### T ACRO #### [facility] (DEFAULT) [address] [place] [address] Erythrocyte distribution width (RBC) [Ratio] 13.6 % 10.9 - 14.3 % [facility] Hematocrit (Bld) [Volume fraction] 36.1 % Low 39.6 - 48.8 % [facility] Hemoglobin (Bld) [Mass/Vol] 11.6 g/dL Low 13.4 - 16.8 g/dL [facility] Interpretation and review of laboratory results Abnormal [facility] MCH (RBC) [Entitic mass] 27.4 pg 26.1 - 33.3 pg [facility] MCHC (RBC) [Mass/Vol] 32.1 g/dL 31.9 - 36.5 g/dL [facility] MCV (RBC) [Entitic vol] 85.1 fL 79.0 - 94.5 fL [facility] [facility] Platelet mean volume (Bld) [Entitic vol] 9.5 fL 8.7 - 12.3 fL [facility] Platelets (Bld) [#/Vol] 182 10*3/uL 146 - 337 K/uL [facility] RBC (Bld) [#/Vol] 4.24 10*6/uL Low [facility] WBC (Bld) [#/Vol] 4.59 10*3/uL 3.73 - 10. 10 K/uL [facility] CHEM 7 (LYTES,BUN,CREA,GLUC) on 09-08-2023 Anion gap [Moles/Vol] 12 mmol/L Normal 7-17 [facility] Comment on above: Performed By: #### [facility] #### [facility] (DEFAULT) [address] [address] Chloride [Moles/Vol] 113 mmol/L High 98-108 [facility] Comment on above: Performed By: #### [facility] #### [facility] (DEFAULT) [address] [place] [address] CO2 [Moles/Vol] 21 mmol/L Normal 21-31 [facility] Comment on above: Performed By: #### [facility] #### [facility] (DEFAULT) [address] [place] [address] Creatinine [Mass/Vol] 1.14 mg/dL Normal 0.70-1.30 [facility] Comment on above: Performed By: #### H EMO #### [facility] (DEFAULT) [address] [place] [address] GFR/1.73 sq M.predicted among non-blacks MDRD (S/P/Bld) [Vol rate/Area] 77 mL/min/{1.73_m2} Normal >=60 [facility] Comment on above: Result Comment: Repo rted eGFR is based on the CKD-EPI 2020 equation using creatinine, age, and sex. Performed By: #### H EMOGC #### [facility] (DEFAULT) [address] [place] [address] Glucose [Mass/Vol] 107 mg/dL High 70-99 [facility] Comment on above: Performed By: #### H EMOGC #### [facility] (DEFAULT) [address] [place] [address] Osmolality [Osmolality] 296 mosm/kg Normal 278-305 [facility] Comment on above: Performed By: #### H EMOGC #### [facility] (DEFAULT) [address] [place] [address] Potassium [Moles/Vol] 3.9 mmol/L Normal 3.5-5.0 [facility] Comment on above: Performed By: #### H EMOGC #### [facility] (DEFAULT) [address] [place] [address] Sodium [Moles/Vol] 142 mmol/L Normal 135-145 [facility] Comment on above: Performed By: #### H EMO #### [facility] (DEFAULT) [address] [place] [address]16 Urea nitrogen [Mass/Vol] 11 mg/dL Normal 7-25 [facility] Comment on above: Performed By: #### H EMOGC #### [facility] (DEFAULT) [address] [place] [address] Urea nitrogen/Creatinine [Mass ratio] 10 mg/mg Normal [facility] Comment on above: Performed By: #### H EMOGC #### [facility] (DEFAULT) [address] [place] [address] Anion gap [Moles/Vol] 12 mmol/L 7 - 17 mmol/L [facility] Chloride [Moles/Vol] 113 mmol/L High 98 - 10 8 mmol/L [facility] CO2 [Moles/Vol] 21 mmol/L 21 - 31 mmol/L [facility] Creatinine [Mass/Vol] 1.14 mg/dL 0.70 - 1.30 mg/dL [facility] eGFR, CKD-EPI, Male 77 - PINF [facility] Glucose [Mass/Vol] 107 mg/dL High 70 - 99 mg/dL [facility] Osmolality Calc [Osmolality] 296 [facility] Potassium [Moles/Vol] 3.9 mmol/L 3.5 - 5.0 mmol/L [facility] Sodium [Moles/Vol] 142 mmol/L 135 - 145 mmol/L [facility] Urea nitrogen [Mass/Vol] 11 mg/dL 7 - 25 mg/dL [facility] Urea nitrogen/Creatinine [Mass ratio] 10 mg/mg [facility] HEPATIC FUNCTION PANELon Albumin [Mass/Vol] 2.9 g/dL Low 3.5-5.0 [facility] Comment on above: Performed By: #### [facility] #### [facility] (DEFAULT) [address] [place] [address] ALP [Catalytic activity/Vol] 133 U/L High 32-126 [facility] Comment on above: Performed By: #### [facility] #### [facility] (DEFAULT) [address] [place] [address] ALT [Catalytic activity/Vol] 23 U/L Normal 10-52 [facility] Comment on above: Performed By: #### [facility] #### [facility] (DEFAULT) [address] [place] [address] AST [Catalytic activity/Vol] 23 U/L Normal 10-39 [facility] Comment on above: Performed By: #### [facility] #### [facility] (DEFAULT) [address] [place] [address] Bilirubin [Mass/Vol] 0.8 mg/dL Normal <1.5 [facility] Comment on above: Performed By: #### H EMO #### [facility] (DEFAULT) [address] [place] [address] Bilirubin.indirect [Mass/Vol] 0.2 mg/dL Normal <0.3 [facility] Comment on above: Performed By: #### H EMO #### [facility] (DEFAULT) [address] [place] [address]7 Protein [Mass/Vol] 5.9 g/dL Low 6.4-8.3 [facility] Comment on above: Performed By: #### [facility] #### [facility] (DEFAULT) [address] [place] [address] Albumin [Mass/Vol] 2.9 g/dL Low 3.5 - 5.0 g/dL [facility] ALP [Catalytic activity/Vol] 133 U/L High 32 - 126 U/L [facility] ALT [Catalytic activity/Vol] 23 U/L 10 - 52 U/L [facility] AST [Catalytic activity/Vol] 23 U/L 10 - 39 U/L [facility] Bilirubin [Mass/Vol] 0.8 mg/dL [facility] mg/dL [facility] Bilirubin.direct [Mass/Vol] 0.2 mg/dL NINF - 0.3 mg/dL [facility] Protein [Mass/Vol] 5.9 g/dL Low 6.4 - 8.3 g/dL [facility] MAGNESIUMon 09-08-2023 Magnesium [Mass/Vol] 1.8 mg/dL Normal 1.6-2.6 [facility] Comment on above: Performed By: #### H EMO #### [facility] (DEFAULT) [address] [place] [address] Interpretation and review of laboratory results Normal [facility] Magnesium [Mass/Vol] 1.8 mg/dL 1.6 - 2 .6 mg/dL [facility] No Panel Informationon 09-08 Interpretation and review of laboratory results Abnormal [facility] PHOSPHATE, INORGANICon 09-08 Interpretation and review of laboratory results Normal [facility] Phosphate [Mass/Vol] 4.1 mg/dL 2.2 - 4 .6 mg/dL [facility] Phosphorous 4.1 mg/dL Normal 2.2-4.6 [facility] Comment on above: Performed By: #### [facility] #### [facility] (DEFAULT) [address] [address] TACROLIMUS LEVEL, TROUGH (ID E DRUG LEVEL)on 09-08-2023 Interpretation and review of laboratory results Normal [facility] Tacrolimus (Bld) [Mass/Vol] 8.5 ng/mL [facility] Tacrolimus, Trough 8.5 ng/mL Normal Bone Susana ow Transplant: 4.0-12.0, Therapeutic: 5.0-15.0 [facility] Comment on above: Order Comment: Pleas e draw at specified interval PRIOR to dose. Do not hold dose to wait for level. Specimens batched twice per day, (M-) and once per day weekendsMethod performed is a chemiluminescent microparticle immunoasssay on the [employer] i2000.The range is based on experience at [facility] and users should be aware that target concentrations vary widely depending on concomitant therapy, time post-transplant, and desired degree of immunosuppression. Performed By: #### N ONGNNONFNA #### [facility] (DEFAULT) [address] [place] [address] CBC,PLATELETSon 09-07-2023 Hematocrit (Bld) [Volume fraction] 37.1 % Low 39.6-48.8 [facility] Comment on above: Performed By: #### G ASALL #### [facility] (DEFAULT) [address] [place] [address] Hemoglobin (Bld) [Mass/Vol] 11.9 g/dL Low 13.4-16.8 [facility] Comment on above: Performed By: ###Walter UNDERWOOD #### [facility] (DEFAULT) [address] [address] MCV (RBC) [Entitic vol] 86.5 fL Normal 79.0-94.5 [facility] Comment on above: Performed By: #### Vale UNDERWOOD #### [facility] (DEFAULT) [address] [address] Mean Cell Hgb 27.7 pg Normal 26.1-33.3 [facility] Comment on above: Performed By: #### Vale UNDERWOOD #### [facility] (DEFAULT) [address] [address] Mean Cell Hgb Conc 32.1 g/dL Normal 31.9-36.5 [facility] Comment on above: Performed By: #### Vale UNDERWOOD #### [facility] (DEFAULT) [address] [address] Platelet mean volume (Bld) [Entitic vol] 9.6 fL Normal 8.7-12.3 [facility] Comment on above: Performed By: ###Walter UNDERWOOD #### [facility] (DEFAULT) [address] [address] Platelets (Bld) [#/Vol] 176 10*3/uL Normal 146-337 [facility] Comment on above: Performed By: ###Walter UNDERWOOD #### [facility] (DEFAULT) [address] [address] RBC (Bld) [#/Vol] 4.29 10*6/uL Low 4.38-5.83 [facility] Comment on above: Performed By: ###Walter UNDERWOOD #### [facility] (DEFAULT) [address] [address] RBC Distribution 13.5 % Normal 10.9-14.3 [facility] Comment on above: Performed By: ###Walter UNDERWOOD #### [facility] (DEFAULT) [address] [place] [address] WBC (Bld) [#/Vol] 4.10 10*3/uL Normal 3.73-10.10 [facility] Comment on above: Performed By: #### G ASAASHISH #### [facility] (DEFAULT) [address] [place] [address] Erythrocyte distribution width (RBC) [Ratio] 13.5 % 10.9 - 14.3 % [facility] Hematocrit (Bld) [Volume fraction] 37.1 % Low 39.6 - 48.8 % [facility] Hemoglobin (Bld) [Mass/Vol] 11.9 g/dL Low 13.4 - 16.8 g/dL [facility] Interpretation and review of laboratory results Abnormal [facility] MCH (RBC) [Entitic mass] 27.7 pg 26.1 - 33.3 pg [facility] MCHC (RBC) [Mass/Vol] 32.1 g/dL 31.9 - 36.5 g/dL [facility] MCV (RBC) [Entitic vol] 86.5 fL 79.0 - 94.5 fL [facility] Platelet mean volume (Bld) [Entitic vol] 9.6 fL 8.7 - 12.3 fL [facility] Platelets (Bld) [#/Vol] 176 10*3/uL 146 - 337 K/uL [facility] RBC (Bld) [#/Vol] 4.29 10*6/uL Low [facility] WBC (Bld) [#/Vol] 4.10 10*3/uL 3.73 - 10. 10 K/uL [facility] CHEM 7 (LYTES,BUN,CREA,GLUC) on 09-07-2023 Anion gap [Moles/Vol] 13 mmol/L Normal 7-17 [facility] Comment on above: Performed By: #### Y PNRP #### [facility] (DEFAULT) [address] [place] [address] Chloride [Moles/Vol] 113 mmol/L High 98-108 [facility] Comment on above: Performed By: #### Y PNRP #### [facility] (DEFAULT) [address] [address] CO2 [Moles/Vol] 19 mmol/L Low 21-31 [facility] Comment on above: Performed By: #### Y PNRP #### [facility] (DEFAULT) [address] [address] Creatinine [Mass/Vol] 1.22 mg/dL Normal 0.70-1.30 [facility] Comment on above: Performed By: #### Y PNRP #### [facility] (DEFAULT) [address] [address] GFR/1.73 sq M.predicted among non-blacks MDRD (S/P/Bld) [Vol rate/Area] 71 mL/min/{1.73_m2} Normal >=60 [facility] Comment on above: Result Comment: Repo rted eGFR is based on the CKD-EPI 2020 equation using creatinine, age, and sex. Performed By: #### Y PNRP #### [facility] (DEFAULT) [address] [address] Glucose [Mass/Vol] 107 mg/dL High 70-99 [facility] Comment on above: Performed By: #### Y PNRP #### [facility] (DEFAULT) [address] [address] Osmolality [Osmolality] 295 mosm/kg Normal 278-305 [facility] Comment on above: Performed By: #### Y PNRP #### [facility] (DEFAULT) [address] [address] Potassium [Moles/Vol] 3.9 mmol/L Normal 3.5-5.0 [facility] Comment on above: Performed By: #### Y PNRP #### [facility] (DEFAULT) [address] [address] Sodium [Moles/Vol] 141 mmol/L Normal 135-145 [facility] Comment on above: Performed By: #### Y PNRP #### [facility] (DEFAULT) [address] [place] [address] Urea nitrogen [Mass/Vol] 13 mg/dL Normal 7-25 [facility] Comment on above: Performed By: #### Y PNRP #### [facility] (DEFAULT) [address] [place] [address] Urea nitrogen/Creatinine [Mass ratio] 11 mg/mg Normal [facility] Comment on above: Performed By: #### Y PNRP #### [facility] (DEFAULT) [address] [place] [address] Anion gap [Moles/Vol] 13 mmol/L 7 - 17 mmol/L [facility] Chloride [Moles/Vol] 113 mmol/L High 98 - 10 8 mmol/L [facility] CO2 [Moles/Vol] 19 mmol/L Low 21 - 31 mmol/L [facility] Creatinine [Mass/Vol] 1.22 mg/dL 0.70 - 1.30 mg/dL [facility] eGFR, CKD-EPI, Male 71 - PINF [facility] Glucose [Mass/Vol] 107 mg/dL High 70 - 99 mg/dL [facility] Osmolality Calc [Osmolality] 295 [facility] Potassium [Moles/Vol] 3.9 mmol/L 3.5 - 5.0 mmol/L [facility] Sodium [Moles/Vol] 141 mmol/L 135 - 145 mmol/L [facility] Urea nitrogen [Mass/Vol] 13 mg/dL 7 - 25 mg/dL [facility] Urea nitrogen/Creatinine [Mass ratio] 11 mg/mg [facility] HEPATIC FUNCTION PANELon Albumin [Mass/Vol] 2.9 g/dL Low 3.5-5.0 [facility] Comment on above: Performed By: #### Y PNRP #### [facility] (DEFAULT) [address] [place] [address] ALP [Catalytic activity/Vol] 111 U/L Normal 32-126 [facility] Comment on above: Performed By: #### Y PNRP #### [facility] (DEFAULT) [address] [place] [address] ALT [Catalytic activity/Vol] 18 U/L Normal 10-52 [facility] Comment on above: Performed By: #### Y PNRP #### [facility] (DEFAULT) [address] [place] [address] AST [Catalytic activity/Vol] 23 U/L Normal 10-39 [facility] Comment on above: Performed By: #### Y PNRP #### [facility] (DEFAULT) [address] [place] [address] Bilirubin [Mass/Vol] 0.8 mg/dL Normal <1.5 [facility] Comment on above: Performed By: #### Y PNRP #### [facility] (DEFAULT) [address] [place] [address] Bilirubin.indirect [Mass/Vol] 0.3 mg/dL High <0.3 [facility] Comment on above: Performed By: #### Y PNRP #### [facility] (DEFAULT) [address] [place] [address] Protein [Mass/Vol] 6.0 g/dL Low 6.4-8.3 [facility] Comment on above: Performed By: #### Y PNRP #### [facility] (DEFAULT) [address] [place] [address] Albumin [Mass/Vol] 2.9 g/dL Low 3.5 - 5.0 g/dL [facility] ALP [Catalytic activity/Vol] 111 U/L 32 - 126 U/L [facility] ALT [Catalytic activity/Vol] 18 U/L 10 - 52 U/L [facility] AST [Catalytic activity/Vol] 23 U/L 10 - 39 U/L [facility] Bilirubin [Mass/Vol] 0.8 mg/dL NINF - 1.5 mg/dL [facility] Bilirubin.direct [Mass/Vol] 0.3 mg/dL High NINF - 0.3 mg/dL [facility] Protein [Mass/Vol] 6.0 g/dL Low 6.4 - 8.3 g/dL [facility] MAGNESIUMon 09-07-2023 Magnesium [Mass/Vol] 1.7 mg/dL Normal 1.6-2.6 [facility] Comment on above: Performed By: #### Y PNRP #### [facility] (DEFAULT) [address] [place] [address] Interpretation and review of laboratory results Normal [facility] Magnesium [Mass/Vol] 1.7 mg/dL 1.6 - 2 .6 mg/dL [facility] No Panel Informationon 09-07 Interpretation and review of laboratory results Abnormal [facility] PHOSPHATE, INORGANICon 09-07 Phosphorous 4.4 mg/dL Normal 2.2-4.6 [facility] Comment on above: Performed By: #### Y PNRP #### [facility] (DEFAULT) [address] [place] [address] Interpretation and review of laboratory results Normal [facility] Phosphate [Mass/Vol] 4.4 mg/dL 2.2 - 4 .6 mg/dL [facility] TACROLIMUS LEVEL, TROUGH (ID E DRUG LEVEL)Ordered By: Elizabeth Maldonado on 09-07-2023 Interpretation and review of laboratory results Normal [facility] Tacrolimus (Bld) [Mass/Vol] 7.8 ng/mL [facility] [place] [facility] TACROLIMUS LEVEL, TROUGH (ID E DRUG LEVEL)on 09-07-2023 Tacrolimus, Trough 7.8 ng/mL Normal Bone Susana ow Transplant: 4.0-12.0, Therapeutic: 5.0-15.0 [facility] Comment on above: Order Comment: Plejoan e draw at specified interval PRIOR to dose. Do not hold dose to wait for level. Specimens batched twice per day, (M-F) and once per day weekends Method performed is a chemiluminescent microparticle immunoasssay on the [employer] i2000. The range is based on experience at [facility] and users should be aware that target concentrations vary widely depending on concomitant therapy, time post-transplant, and desired degree of immunosuppression. Performed By: #### T ACRO #### [facility] (DEFAULT) [address] [address] CBC,PLATELETSon 09-06-2023 Hematocrit (Bld) [Volume fraction] 38.4 % Low 39.6-48.8 [facility] Comment on above: Performed By: #### Y PNRP #### [facility] (DEFAULT) [address] [address] Hemoglobin (Bld) [Mass/Vol] 11.9 g/dL Low 13.4-16.8 [facility] Comment on above: Performed By: #### Y PNRP #### [facility] (DEFAULT) [address] [address] MCV (RBC) [Entitic vol] 85.9 fL Normal 79.0-94.5 [facility] Comment on above: Performed By: #### Y PNRP #### [facility] (DEFAULT) [address] [address] Mean Cell Hgb 26.6 pg Normal 26.1-33.3 [facility] Comment on above: Performed By: #### Y PNRP #### [facility] (DEFAULT) [address] [address] Mean Cell Hgb Conc 31.0 g/dL Low 31.9-36.5 [facility] Comment on above: Performed By: #### Y PNRP #### [facility] (DEFAULT) [address] [address] Platelet mean volume (Bld) [Entitic vol] 9.7 fL Normal 8.7-12.3 [facility] Comment on above: Performed By: #### Y PNRP #### [facility] (DEFAULT) [address] [place] [address] Platelets (Bld) [#/Vol] 181 10*3/uL Normal 146-337 [facility] Comment on above: Performed By: #### Y PNRP #### [facility] (DEFAULT) [address] [place] [address] RBC (Bld) [#/Vol] 4.47 10*6/uL Normal 4.38-5.83 [facility] Comment on above: Performed By: #### Y PNRP #### [facility] (DEFAULT) [address] [place] [address] RBC Distribution 13.4 % Normal 10.9-14.3 [facility] Comment on above: Performed By: #### Y PNRP #### [facility] (DEFAULT) [address] [place] [address] WBC (Bld) [#/Vol] 4.41 10*3/uL Normal 3.73-10.10 [facility] Comment on above: Performed By: #### Y PNRP #### [facility] (DEFAULT) [address] [place] [address] Erythrocyte distribution width (RBC) [Ratio] 13.4 % 10.9 - 14.3 % [facility] Hematocrit (Bld) [Volume fraction] 38.4 % Low 39.6 - 48.8 % [facility] Hemoglobin (Bld) [Mass/Vol] 11.9 g/dL Low 13.4 - 16.8 g/dL [facility] Interpretation and review of laboratory results Abnormal [facility] MCH (RBC) [Entitic mass] 26.6 pg 26.1 - 33.3 pg [facility] MCHC (RBC) [Mass/Vol] 31.0 g/dL Low 31.9 - 36.5 g/dL [facility] MCV (RBC) [Entitic vol] 85.9 fL 79.0 - 94.5 fL [facility] Platelet mean volume (Bld) [Entitic vol] 9.7 fL 8.7 - 12.3 fL [facility] Platelets (Bld) [#/Vol] 181 10*3/uL 146 - 337 K/uL [facility] RBC (Bld) [#/Vol] 4.47 10*6/uL [facility] WBC (Bld) [#/Vol] 4.41 10*3/uL 3.73 - 10. 10 K/uL [facility] CHEM 7 (LYTES,BUN,CREA,GLUC) on 09-06-2023 Anion gap [Moles/Vol] 14 mmol/L 7 - 17 mmol/L [facility] Chloride [Moles/Vol] 109 mmol/L High 98 - 10 8 mmol/L [facility] CO2 [Moles/Vol] 19 mmol/L Low 21 - 31 mmol/L [facility] Creatinine [Mass/Vol] 1.26 mg/dL 0.70 - 1.30 mg/dL [facility] eGFR, CKD-EPI, Male 69 - PINF [facility] Glucose [Mass/Vol] 114 mg/dL High 70 - 99 mg/dL [facility] Osmolality Calc [Osmolality] 291 [facility] Potassium [Moles/Vol] 4.1 mmol/L 3.5 - 5.0 mmol/L [facility] Sodium [Moles/Vol] 138 mmol/L 135 - 145 mmol/L [facility] Urea nitrogen [Mass/Vol] 16 mg/dL 7 - 25 mg/dL [facility] Urea nitrogen/Creatinine [Mass ratio] 13 mg/mg [facility] Anion gap [Moles/Vol] 14 mmol/L Normal 7-[address] [facility] Comment on above: Performed By: #### L EGN #### [facility] (DEFAULT) [address] [place] [address] Chloride [Moles/Vol] 109 mmol/L High 98-108 [facility] Comment on above: Performed By: #### L EGN #### [facility] (DEFAULT) [address] [place] [address] CO2 [Moles/Vol] 19 mmol/L Low 21-31 [facility] Comment on above: Performed By: #### L EGN #### [facility] (DEFAULT) [address] [place] [address] Creatinine [Mass/Vol] 1.26 mg/dL Normal 0.70-1.30 [facility] Comment on above: Performed By: #### L EGN #### [facility] (DEFAULT) [address] [place] [address] GFR/1.73 sq M.predicted among non-blacks MDRD (S/P/Bld) [Vol rate/Area] 69 mL/min/{1.73_m2} Normal >=60 [facility] Comment on above: Result Comment: Repo rted eGFR is based on the CKD-EPI 2020 equation using creatinine, age, and sex. Performed By: #### L EGN #### [facility] (DEFAULT) [address] [place] [address] Glucose [Mass/Vol] 114 mg/dL High 70-99 [facility] Comment on above: Performed By: #### L EGN #### [facility] (DEFAULT) [address] [place] [address] Osmolality [Osmolality] 291 mosm/kg Normal 278-305 [facility] Comment on above: Performed By: #### L EGN #### [facility] (DEFAULT) [address] [place] [address] Potassium [Moles/Vol] 4.1 mmol/L Normal 3.5-5.0 [facility] Comment on above: Performed By: #### L EGN #### [facility] (DEFAULT) [address] [place] [address] Sodium [Moles/Vol] 138 mmol/L Normal 135-145 [facility] Comment on above: Performed By: #### L EGN #### [facility] (DEFAULT) [address] [place] [address] Urea nitrogen [Mass/Vol] 16 mg/dL Normal 7-25 [facility] Comment on above: Performed By: #### L EGN #### [facility] (DEFAULT) [address] [place] [address] Urea nitrogen/Creatinine [Mass ratio] 13 mg/mg Normal [facility] Comment on above: Performed By: #### L EGN #### [facility] (DEFAULT) [address] [place] [address] HEPATIC FUNCTION PANELon Albumin [Mass/Vol] 3.0 g/dL Low 3.5 - 5.0 g/dL [facility] ALP [Catalytic activity/Vol] 115 U/L 32 - 126 U/L [facility] ALT [Catalytic activity/Vol] 25 U/L 10 - 52 U/L [facility] AST [Catalytic activity/Vol] 31 U/L 10 - 39 U/L [facility] Bilirubin [Mass/Vol] 1.0 mg/dL [facility] 1.[facility] mg/dL [facility] Bilirubin.direct [Mass/Vol] 0.3 mg/dL High NINF - 0.3 mg/dL [facility] Protein [Mass/Vol] 6.3 g/dL Low 6.4 - 8.3 g/dL [facility] Albumin [Mass/Vol] 3.0 g/dL Low 3.5-5.0 [facility] Comment on above: Performed By: #### L EGN #### [facility] (DEFAULT) [address] [place] [address] ALP [Catalytic activity/Vol] 115 U/L Normal 32-126 [facility] Comment on above: Performed By: #### L EGN #### [facility] (DEFAULT) [address] [place] [address] 02826 ALT [Catalytic activity/Vol] 25 U/L Normal 10-52 [facility] Comment on above: Performed By: #### L EGN #### [facility] (DEFAULT) [address] [place] [address] AST [Catalytic activity/Vol] 31 U/L Normal 10-39 [facility] Comment on above: Performed By: #### L EGN #### [facility] (DEFAULT) [address] [place] [address] Bilirubin [Mass/Vol] 1.0 mg/dL Normal <1.5 [facility] Comment on above: Performed By: #### L EGN #### [facility] (DEFAULT) [address] [place] [address]28 Bilirubin.indirect [Mass/Vol] 0.3 mg/dL High <0.3 [facility] Comment on above: Performed By: #### L EGN #### [facility] (DEFAULT) [address] [place] [address] 02761 Protein [Mass/Vol] 6.3 g/dL Low 6.4-8.3 [facility] Comment on above: Performed By: #### L EGN #### [facility] (DEFAULT) [address] [place] [address] MAGNESIUMon 09-06-2023 Interpretation and review of laboratory results Normal [facility] Magnesium [Mass/Vol] 2.0 mg/dL 1.6 - 2 .6 mg/dL [facility] Magnesium [Mass/Vol] 2.0 mg/dL Normal 1.6-2.6 [facility] Comment on above: Performed By: #### L EGN #### [facility] (DEFAULT) [address] [place] [address] No Panel Informationon 09-06 Interpretation and review of laboratory results Abnormal [facility] TACROLIMUS LEVEL, TROUGH (ID E DRUG LEVEL)on 09-06-2023 Interpretation and review of laboratory results Normal [facility] Tacrolimus (Bld) [Mass/Vol] 6.7 ng/mL [facility] [place] Tacrolimus, Trough 6.7 ng/mL Normal Bone Susana ow Transplant: 4.0-12.0, Therapeutic: 5.0-15.0 [facility] Comment on above: Order Comment: Pleas e draw at specified interval PRIOR to dose. Do not hold dose to wait for level. Specimens batched twice per day, (M-F) and once per day weekends Method performed is a chemiluminescent microparticle immunoasssay on the [employer] i2000. The range is based on experience at [facility] and users should be aware that target concentrations vary widely depending on concomitant therapy, time post-transplant, and desired degree of immunosuppression. Performed By: #### T ACRO #### [facility] (DEFAULT) [address] [address] CBC,PLATELETSon 09-05-2023 Hematocrit (Bld) [Volume fraction] 35.6 % Low 39.6-48.8 [facility] Comment on above: Performed By: #### T ACRO #### [facility] (DEFAULT) [address] [address] Hemoglobin (Bld) [Mass/Vol] 11.4 g/dL Low 13.4-16.8 [facility] Comment on above: Performed By: #### T ACRO #### [facility] (DEFAULT) [address] [address] MCV (RBC) [Entitic vol] 86.0 fL Normal 79.0-94.5 [facility] Comment on above: Performed By: #### T ACRO #### [facility] (DEFAULT) [address] [address] Mean Cell Hgb 27.5 pg Normal 26.1-33.3 [facility] Comment on above: Performed By: #### T ACRO #### [facility] (DEFAULT) [address] [address] Mean Cell Hgb Conc 32.0 g/dL Normal 31.9-36.5 [facility] Comment on above: Performed By: #### T ACRO #### [facility] (DEFAULT) [address] [address] Platelet mean volume (Bld) [Entitic vol] 10.0 fL Normal 8.7-12.3 [facility] Comment on above: Performed By: #### T ACRO #### [facility] (DEFAULT) [address] [address] Platelets (Bld) [#/Vol] 170 10*3/uL Normal 146-337 [facility] Comment on above: Performed By: #### T ACRO #### [facility] (DEFAULT) [address] [address] RBC (Bld) [#/Vol] 4.14 10*6/uL Low 4.38-5.83 [facility] Comment on above: Performed By: #### T ACRO #### [facility] (DEFAULT) [address] [address] RBC Distribution 13.5 % Normal 10.9-14.3 [facility] Comment on above: Performed By: #### T ACRO #### [facility] (DEFAULT) [address] [address] WBC (Bld) [#/Vol] 4.24 10*3/uL Normal 3.73-10.10 [facility] Comment on above: Performed By: #### T ACRO #### [facility] (DEFAULT) [address] [address] Erythrocyte distribution width (RBC) [Ratio] 13.5 % 10.9 - 14.3 % [facility] Hematocrit (Bld) [Volume fraction] 35.6 % Low 39.6 - 48.8 % [facility] Hemoglobin (Bld) [Mass/Vol] 11.4 g/dL Low 13.4 - 16.8 g/dL [facility] Interpretation and review of laboratory results Abnormal [facility] MCH (RBC) [Entitic mass] 27.5 pg 26.1 - 33.3 pg [facility] MCHC (RBC) [Mass/Vol] 32.0 g/dL 31.9 - 36.5 g/dL [facility] MCV (RBC) [Entitic vol] 86.0 fL 79.0 - 94.5 fL [facility] Platelet mean volume (Bld) [Entitic vol] 10.0 fL 8.7 - 12.3 fL [facility] Platelets (Bld) [#/Vol] 170 10*3/uL 146 - 337 K/uL [facility] RBC (Bld) [#/Vol] 4.14 10*6/uL Low [facility] WBC (Bld) [#/Vol] 4.24 10*3/uL 3.73 - 10. 10 K/uL [facility] CHEM 7 (LYTES,BUN,CREA,GLUC) on 09-05-2023 Anion gap [Moles/Vol] 12 mmol/L Normal 7-17 [facility] Comment on above: Performed By: #### L EGN #### [facility] (DEFAULT) [address] [place] [address] Chloride [Moles/Vol] 107 mmol/L Normal 98-108 [facility] Comment on above: Performed By: #### L EGN #### [facility] (DEFAULT) [address] [place] [address] 24836 CO2 [Moles/Vol] 20 mmol/L Low 21-31 [facility] Comment on above: Performed By: #### L EGN #### [facility] (DEFAULT) [address] [place] [address] Creatinine [Mass/Vol] 1.43 mg/dL High 0.70-1.30 [facility] Comment on above: Performed By: #### L EGN #### [facility] (DEFAULT) [address] [place] [address] GFR/1.73 sq M.predicted among non-blacks MDRD (S/P/Bld) [Vol rate/Area] 59 mL/min/{1.73_m2} Low >=60 [facility] Comment on above: Result Comment: Repo rted eGFR is based on the CKD-EPI 2020 equation using creatinine, age, and sex. Performed By: #### L EGN #### [facility] (DEFAULT) [address] [place] [address] Glucose [Mass/Vol] 111 mg/dL High 70-99 [facility] Comment on above: Performed By: #### L EGN #### [facility] (DEFAULT) [address] [place] [address] Osmolality [Osmolality] 286 mosm/kg Normal 278-305 [facility] Comment on above: Performed By: #### L EGN #### [facility] (DEFAULT) [address] [place] [address] Potassium [Moles/Vol] 4.2 mmol/L Normal 3.5-5.0 [facility] Comment on above: Performed By: #### L EGN #### [facility] (DEFAULT) [address] [place] [address] 86095 Sodium [Moles/Vol] 135 mmol/L Normal 135-145 [facility] Comment on above: Performed By: #### L EGN #### [facility] (DEFAULT) [address] [place] [address] Urea nitrogen [Mass/Vol] 18 mg/dL Normal 7-25 [facility] Comment on above: Performed By: #### L EGN #### [facility] (DEFAULT) [address] [place] [address] Urea nitrogen/Creatinine [Mass ratio] 13 mg/mg Normal [facility] Comment on above: Performed By: #### L EGN #### [facility] (DEFAULT) [address] [place] [address] Anion gap [Moles/Vol] 12 mmol/L 7 - 17 mmol/L [facility] Chloride [Moles/Vol] 107 mmol/L 98 - 10 8 mmol/L [facility] CO2 [Moles/Vol] 20 mmol/L Low 21 - 31 mmol/L [facility] Creatinine [Mass/Vol] 1.43 mg/dL High 0.70 - 1.30 mg/dL [facility] eGFR, CKD-EPI, Male 59 Low - [facility] Glucose [Mass/Vol] 111 mg/dL High 70 - 99 mg/dL [facility] Osmolality Calc [Osmolality] 286 [facility] Potassium [Moles/Vol] 4.2 mmol/L 3.5 - 5.0 mmol/L [facility] Sodium [Moles/Vol] 135 mmol/L 135 - 145 mmol/L [facility] Urea nitrogen [Mass/Vol] 18 mg/dL 7 - 25 mg/dL [facility] Urea nitrogen/Creatinine [Mass ratio] 13 mg/mg [facility] CONTINUOUS CARDIAC MONITORIN G STRIPon 09-05-2023 [facility] HEPATIC FUNCTION PANELon Albumin [Mass/Vol] 2.8 g/dL Low 3.5-5.0 [facility] Comment on above: Performed By: #### L EGN #### [facility] (DEFAULT) [address] [place] [address]23 ALP [Catalytic activity/Vol] 103 U/L Normal 32-126 [facility] Comment on above: Performed By: #### L EGN #### [facility] (DEFAULT) [address] [place] [address] 41661 ALT [Catalytic activity/Vol] 26 U/L Normal 10-52 [facility] Comment on above: Performed By: #### L EGN #### [facility] (DEFAULT) [address] [place] [address]99 AST [Catalytic activity/Vol] 38 U/L Normal 10-39 [facility] Comment on above: Performed By: #### L EGN #### [facility] (DEFAULT) [address] [place] [address] Bilirubin [Mass/Vol] 0.9 mg/dL Normal <1.5 [facility] Comment on above: Performed By: #### L EGN #### [facility] (DEFAULT) [address] [place] [address] Bilirubin.indirect [Mass/Vol] 0.1 mg/dL Normal <0.3 [facility] Comment on above: Performed By: #### L EGN #### [facility] (DEFAULT) [address] [place] [address] Protein [Mass/Vol] 6.1 g/dL Low 6.4-8.3 [facility] Comment on above: Performed By: #### L EGN #### [facility] (DEFAULT) [address] [place] [address]80 Albumin [Mass/Vol] 2.8 g/dL Low 3.5 - 5.0 g/dL [facility] ALP [Catalytic activity/Vol] 103 U/L 32 - 126 U/L [facility] ALT [Catalytic activity/Vol] 26 U/L 10 - 52 U/L [facility] AST [Catalytic activity/Vol] 38 U/L 10 - 39 U/L [facility] Bilirubin [Mass/Vol] 0.9 mg/dL NINF - 1.5 mg/dL [facility] Bilirubin.direct [Mass/Vol] 0.1 mg/dL NINF - 0.3 mg/dL [facility] Protein [Mass/Vol] 6.1 g/dL Low 6.4 - 8.3 g/dL [facility] HISTOPLASMA ANTIGEN, FLUIDon 09-05-2023 FH SOURCE BAL RML [facility] Histo FLD interpretation Negative [facility] Histoplasma Antigen, FLUID Not detected ng/mL [facility] HISTOPLASMA CAPSULATUM/BLAST OMYCES SPECIES,PCR FLUIDon 09-05-2023 HISTO/BLASTO RESULT Negative Not Applicable [facility] Specimen source Nom (Unsp spec) BAL RML [facility] IMMUNOPHENOTYPING, TISSUE/FL UIDon 09-05-2023 BKR DX CODE Use Ordering [facility] Flow Interpretation See Comment [facility] Flow Interpreted by: Yossi Perla MD, PhD [facility] [place] MAGNESIUMon 09-05-2023 Magnesium [Mass/Vol] 1.7 mg/dL Normal 1.6-2.6 [facility] Comment on above: Performed By: #### L EGN #### [facility] (DEFAULT) [address] [place] [address] Interpretation and review of laboratory results Normal [facility] Magnesium [Mass/Vol] 1.7 mg/dL 1.6 - 2 .6 mg/dL [facility] No Panel Informationon 09-05 Interpretation and review of laboratory results Abnormal [facility] [place] TACROLIMUS LEVEL, TROUGH (ID E DRUG LEVEL)Ordered By: Raymundo Mehta on 09-05-2023 Interpretation and review of laboratory results Normal [facility] Tacrolimus (Bld) [Mass/Vol] 5.3 ng/mL [facility] [place] TACROLIMUS LEVEL, TROUGH (ID E DRUG LEVEL)on 09-05-2023 Tacrolimus, Trough 5.3 ng/mL Normal Bone Susana ow Transplant: 4.0-12.0, Therapeutic: 5.0-15.0 [facility] Comment on above: Order Comment: Pleas e draw at specified interval PRIOR to dose. Do not hold dose to wait for level. Specimens batched twice per day, (M-F) and once per day weekendsMethod performed is a chemiluminescent microparticle immunoasssay on the [employer] i2000.The range is based on experience at [facility] and users should be aware that target concentrations vary widely depending on concomitant therapy, time post-transplant, and desired degree of immunosuppression. Performed By: #### Y PNRP #### [facility] (DEFAULT) [address] [place] [address] ARTERIAL BLOOD GAS (FULL PUENTE EL)on 09-04-2023 Base Excess -1.2 mmol/L Normal -3.0-3.0 [facility] Comment on above: Performed By: #### G YASMINE #### [facility] (DEFAULT) [address] [place] [address] Carboxyhemoglobin 0.7 % Normal <=1.5 [facility] Comment on above: Performed By: #### Vale UNDERWOOD #### [facility] (DEFAULT) [address] [address] Glucose [Mass/Vol] 159 mg/dL High 70-99 [facility] Comment on above: Performed By: #### Vale UNDERWOOD #### [facility] (DEFAULT) [address] [place] [address] HCO3 (Bld) [Moles/Vol] 22 mmol/L Normal 22-28 [facility] Comment on above: Performed By: #### Vale UNDERWOOD #### [facility] (DEFAULT) [address] [place] [address] Hematocrit (Bld) [Volume fraction] 38.0 % Low 40.2-50.4 [facility] Comment on above: Performed By: #### Vale ASALL #### [facility] (DEFAULT) [address] [address] Hemoglobin (Bld) [Mass/Vol] 12.6 g/dL Low 13.4-16.8 [facility] Comment on above: Performed By: #### Vale ASALL #### [facility] (DEFAULT) [address] [address] Ionized Calcium, Whole Blood 4.79 mg/dL Normal 4.60-5.30 [facility] Comment on above: Performed By: #### Vale UNDERWOOD #### [facility] (DEFAULT) [address] [place] [address] Lactate, Whole Blood 2.0 mmol/L High 0.5-1.6 [facility] Comment on above: Performed By: #### Vale UNDERWOOD #### [facility] (DEFAULT) [address] [place] [address] Methemoglobin 0.0 % Normal <=1.5 [facility] Comment on above: Performed By: #### Vale UNDERWOOD #### [facility] (DEFAULT) [address] [place] [address] Oxyhemoglobin 91 % Low 94-98 [facility] Comment on above: Performed By: #### Vale UNDERWOOD #### [facility] (DEFAULT) [address] [place] [address] pCO2 30 mm Hg Low 32-48 [facility] Comment on above: Performed By: #### Vale UNDERWOOD #### [facility] (DEFAULT) [address] [place] [address]49 pH (Bld) 7.48 [pH] High 7.35-7.45 [facility] Comment on above: Performed By: #### Vale UNDERWOOD #### [facility] (DEFAULT) [address] [place] [address] 6[address]65 pO2 62 mm Hg Low 83-108 [facility] Comment on above: Performed By: #### Vale UNDERWOOD #### [facility] (DEFAULT) [address] [place] [address] Potassium [Moles/Vol] 4.2 mmol/L Normal 3.5-5.0 [facility] Comment on above: Performed By: #### Vale UNDERWOOD #### [facility] (DEFAULT) [address] [place] [address] 39669 sO2 92 % Low 94-98 [facility] Comment on above: Performed By: #### Vale UNDERWOOD #### [facility] (DEFAULT) [address] [place] [address] Sodium [Moles/Vol] 130 mmol/L Low 135-145 [facility] Comment on above: Performed By: #### Vale UNDERWOOD #### [facility] (DEFAULT) [address] [place] [address] Specimen type Nom (Spec) Arterial Normal [facility] Comment on above: Performed By: #### Vale UNDERWOOD #### [facility] (DEFAULT) [address] [place] [address] Base excess Calc (Bld) [Moles/Vol] -1.2000 mmol/L -3.0 - 3.0 mmol/L [facility] Calcium.ionized (Bld) [Mass/Vol] 4.79 mg/dL 4.60 - 5.30 mg/dL [facility] Carboxyhemoglobin (Bld) [Mass fraction] 0.7 % NINF - 1.5 % [facility] CO2 (Bld) [Partial pressure] 30 mm[Hg] Low [facility] Glucose [Mass/Vol] 159 mg/dL High 70 - 99 mg/dL [facility] HCO3 (Bld) [Moles/Vol] 22 mmol/L 22 - 28 mmol/L [facility] Hematocrit (Bld) [Volume fraction] 38.0 % Low 40.2 - 50.4 % [facility] Hemoglobin (Bld) [Mass/Vol] 12.6 g/dL Low 13.4 - 16.8 g/dL [facility] Interpretation and review of laboratory results Abnormal [facility] Lactate [Moles/Vol] 2.0 mmol/L High 0.5 - 1. 6 mmol/L [facility] Methemoglobin (Bld) [Mass fraction] 0.0 % NINF - 1.5 % [facility] Oxygen (Bld) [Partial pressure] 62 mm[Hg] Low [facility] Oxygen saturation in Blood 92 % Low 94 - 98 % [facility] Oxyhemoglobin 91 % Low 94 - 98 % [facility] pH (Bld) 7.48 [pH] High 7.35 - 7.45 [facility] Potassium [Moles/Vol] 4.2 mmol/L 3.5 - 5.0 mmol/L [facility] Sodium [Moles/Vol] 130 mmol/L Low 135 - 145 mmol/L [facility] Specimen source Nom (Unsp spec) [facility]terial [facility] Bacteria identified Respirat ory culture Nom (Unsp spec)on 09-04-2023 Bacteria identified Cx Nom (Unsp spec) NO GROWTH DAY 2 OF 2 [facility] Microscopic observation Other stain Nom (Unsp spec) Cytocentrifuge preparation [facility] Microscopic observation Other stain Nom (Unsp spec) [facility]rophils, [facility] Other stain Nom (Unsp spec) Red Blood Cells Present [facility] Microscopic observation Other stain Nom (Unsp spec) [facility] Bacteria identified Respirat ory culture Nom (Unsp spec)Ordered By: Jose Salgado on 09-04-2023 Bacteria identified Cx Nom (Unsp spec) NO GROWTH DAY 2 OF 2 [facility] Microscopic observation Other stain Nom (Unsp spec) Cytocentrifuge preparation [facility] Microscopic observation Other stain Nom (Unsp spec) Neutrophils, Moderate [facility] Microscopic observation Other stain Nom (Unsp spec) Red Blood Cells Present [facility] Microscopic observation Other stain Nom (Unsp spec) No organisms [facility] CBC,PLATELETSon 09-04-2023 Hematocrit (Bld) [Volume fraction] 38.7 % Low 39.6-48.8 [facility] Comment on above: Performed By: #### N RONYGNAURELIANONA #### [facility] (DEFAULT) [address] [address] Hemoglobin (Bld) [Mass/Vol] 12.3 g/dL Low 13.4-16.8 [facility] Comment on above: Performed By: #### N ONGNNONFNA #### [facility] (DEFAULT) [address] [address] MCV (RBC) [Entitic vol] 87.8 fL Normal 79.0-94.5 [facility] Comment on above: Performed By: #### N ONGNNONFNA #### [facility] (DEFAULT) [address] [address] Mean Cell Hgb 27.9 pg Normal 26.1-33.3 [facility] Comment on above: Performed By: #### N ONGNNONFNA #### [facility] (DEFAULT) [address] [address] Mean Cell Hgb Conc 31.8 g/dL Low 31.9-36.5 [facility] Comment on above: Performed By: #### N ONGNNONFNA #### [facility] (DEFAULT) [address] [address] Platelet mean volume (Bld) [Entitic vol] 9.8 fL Normal 8.7-12.3 [facility] Comment on above: Performed By: #### N ONGNNONFNA #### [facility] (DEFAULT) [address] [address] Platelets (Bld) [#/Vol] 173 10*3/uL Normal 146-337 [facility] Comment on above: Performed By: #### N ONGNNONFNA #### [facility] (DEFAULT) [address] [address] RBC (Bld) [#/Vol] 4.41 10*6/uL Normal 4.38-5.83 [facility] Comment on above: Performed By: #### N ONGNNONFNA #### [facility] (DEFAULT) [address] [address] RBC Distribution 13.2 % Normal 10.9-14.3 [facility] Comment on above: Performed By: #### N ONGNCHANG #### [facility] (DEFAULT) [address] [place] [address] WBC (Bld) [#/Vol] 4.57 10*3/uL Normal 3.73-10.10 [facility] Comment on above: Performed By: #### N ONJONH #### [facility] (DEFAULT) [address] [place] [address] Erythrocyte distribution width (RBC) [Ratio] 13.2 % 10.9 - 14.3 % [facility] Hematocrit (Bld) [Volume fraction] 38.7 % Low 39.6 - 48.8 % [facility] Hemoglobin (Bld) [Mass/Vol] 12.3 g/dL Low 13.4 - 16.8 g/dL [facility] Interpretation and review of laboratory results Abnormal [facility] MCH (RBC) [Entitic mass] 27.9 pg 26.1 - 33.3 pg [facility] MCHC (RBC) [Mass/Vol] 31.8 g/dL Low 31.9 - 36.5 g/dL [facility] MCV (RBC) [Entitic vol] 87.8 fL 79.0 - 94.5 fL [facility] Platelet mean volume (Bld) [Entitic vol] 9.8 fL 8.7 - 12.3 fL [facility] Platelets (Bld) [#/Vol] 173 10*3/uL 146 - 337 K/uL [facility] RBC (Bld) [#/Vol] 4.41 10*6/uL [facility] WBC (Bld) [#/Vol] 4.57 10*3/uL 3.73 - 10. 10 K/uL [facility] CHEM 7 (LYTES,BUN,CREA,GLUC) on 09-04-2023 Anion gap [Moles/Vol] 16 mmol/L Normal 7-17 [facility] Comment on above: Performed By: #### N ONJOHNNA #### [facility] (DEFAULT) [address] [place] [address] 20120 Chloride [Moles/Vol] 104 mmol/L Normal 98-108 [facility] Comment on above: Performed By: #### N ONGNNONFNA #### [facility] (DEFAULT) [address] [place] [address] 61145 CO2 [Moles/Vol] 18 mmol/L Low 21-31 [facility] Comment on above: Performed By: #### N ONGNNONFNA #### [facility] (DEFAULT) [address] [place] [address] 31779 Creatinine [Mass/Vol] 1.22 mg/dL Normal 0.70-1.30 [facility] Comment on above: Performed By: #### N ONGNNONFNA #### [facility] (DEFAULT) [address] [place] [address] 84206 GFR/1.73 sq M.predicted among non-blacks MDRD (S/P/Bld) [Vol rate/Area] 71 mL/min/{1.73_m2} Normal >=60 [facility] Comment on above: Result Comment: Repo rted eGFR is based on the CKD-EPI 2020 equation using creatinine, age, and sex. Performed By: #### N ONGNNONFNA #### [facility] (DEFAULT) [address] [place] [address] 74589 Glucose [Mass/Vol] 124 mg/dL High 70-99 [facility] Comment on above: Performed By: #### N ONGNNONFNA #### [facility] (DEFAULT) [address] [place] [address] 06407 Osmolality [Osmolality] 284 mosm/kg Normal 278-305 [facility] Comment on above: Performed By: #### N ONGNNONFNA #### [facility] (DEFAULT) [address] [place] [address] 24577 Potassium [Moles/Vol] 3.9 mmol/L Normal 3.5-5.0 [facility] Comment on above: Performed By: #### N ONGNNONFNA #### [facility] (DEFAULT) [address] [place] [address] Sodium [Moles/Vol] 134 mmol/L Low 135-145 [facility] Comment on above: Performed By: #### N ONGNNONFNA #### [facility] (DEFAULT) [address] [place] [address] Urea nitrogen [Mass/Vol] 15 mg/dL Normal 7-25 [facility] Comment on above: Performed By: #### N ONGNNONFNA #### [facility] (DEFAULT) [address] [place] [address] 24191 Urea nitrogen/Creatinine [Mass ratio] 12 mg/mg Normal [facility] Comment on above: Performed By: #### N ONGNNONFNA #### [facility] (DEFAULT) [address] [place] [address] 19722 Anion gap [Moles/Vol] 16 mmol/L 7 - 17 mmol/L [facility] Chloride [Moles/Vol] 104 mmol/L 98 - 10 8 mmol/L [facility] CO2 [Moles/Vol] 18 mmol/L Low 21 - 31 mmol/L [facility] Creatinine [Mass/Vol] 1.22 mg/dL 0.70 - 1.30 mg/dL [facility] eGFR, CKD-EPI, Male 71 - PINF [facility] Glucose [Mass/Vol] 124 mg/dL High 70 - 99 mg/dL [facility] Osmolality Calc [Osmolality] 284 [facility] Potassium [Moles/Vol] 3.9 mmol/L 3.5 - 5.0 mmol/L [facility] Sodium [Moles/Vol] 134 mmol/L Low 135 - 145 mmol/L [facility] Urea nitrogen [Mass/Vol] 15 mg/dL 7 - 25 mg/dL [facility] Urea nitrogen/Creatinine [Mass ratio] 12 mg/[facility],FLUIDS,URINE,EYE ETC on 09-04-2023 Specimen source Nom (Unsp spec) BAL LLL [facility] Specimen source Nom (Unsp spec) BAL RML [facility] HEPATIC FUNCTION PANELon Albumin [Mass/Vol] 3.0 g/dL Low 3.5-5.0 [facility] Comment on above: Performed By: #### N ONGNNONFNA #### [facility] (DEFAULT) [address] [place] [address] 77473 ALP [Catalytic activity/Vol] 112 U/L Normal 32-126 [facility] Comment on above: Performed By: #### N ONGNNONFNA #### [facility] (DEFAULT) [address] [place] [address] 25484 ALT [Catalytic activity/Vol] 22 U/L Normal 10-52 [facility] Comment on above: Performed By: #### N ONGNNONFNA #### [facility] (DEFAULT) [address] [place] [address] 20610 AST [Catalytic activity/Vol] 30 U/L Normal 10-39 [facility] Comment on above: Performed By: #### N ONGNNONFNA #### [facility] (DEFAULT) [address] [place] [address] 47112 Bilirubin [Mass/Vol] 1.2 mg/dL Normal <1.5 [facility] Comment on above: Performed By: #### N ONGNNONFNA #### [facility] (DEFAULT) [address] [place] [address] 95518 Bilirubin.indirect [Mass/Vol] 0.4 mg/dL High <0.3 [facility] Comment on above: Performed By: #### N ONGNNONFNA #### [facility] (DEFAULT) [address] [place] [address] 78678 Protein [Mass/Vol] 6.4 g/dL Normal 6.4-8.3 [facility] Comment on above: Performed By: #### N ONGNGRAEMEFNA #### [facility] (DEFAULT) [address] [place] [address] Albumin [Mass/Vol] 3.0 g/dL Low 3.5 - 5.0 g/dL [facility] ALP [Catalytic activity/Vol] 112 U/L 32 - 126 U/L [facility] ALT [Catalytic activity/Vol] 22 U/L 10 - 52 [facility] AST [Catalytic activity/Vol] 30 U/L 10 - 39 U/L [facility] Bilirubin [Mass/Vol] 1.2 mg/dL NINF - 1.5 mg/dL [facility] Bilirubin.direct [Mass/Vol] 0.4 mg/dL High NINF - 0.3 mg/dL [facility] Protein [Mass/Vol] 6.4 g/dL 6.4 - 8.3 g/dL [facility] LEGIONELLA PCRon 09-04-2023 Legionella sp rRNA Probe Ql (Unsp spec) Negative Not Applicable [facility] Specimen source Nom (Unsp spec) BAL RML [facility] - Microbiology an d Antimicrobial susceptibilityon 09-04-2023 CMV DNA ESTELITA+probe Ql (Unsp spec) Negative Negative [facility] MAGNESIUMon 09-04-2023 Magnesium [Mass/Vol] 1.4 mg/dL Low 1.6-2.6 [facility] Comment on above: Performed By: #### N RONYGNAURELIANONA #### [facility] (DEFAULT) [address] [place] [address] Magnesium [Mass/Vol] 1.4 mg/dL Low 1.6 - 2 .6 mg/dL [facility] No Panel Informationon 09-04 Annotation comment [Interpretation] Narrative DNR [facility] PN Report Status DNR [facility] Pneumocystis jiroveci,PCR result Negative Not Applicable [facility] [place] Interpretation and review of laboratory results Abnormal [facility] PNEUMOCYSTIS JIROVECI,PCRon 09-04-2023 Specimen source Nom (Unsp spec) BAL LLL [facility] Specimen source Nom (Unsp spec) BAL RML [facility] Portable XR Chest Viewson RADIOLOGY RADIOLOGY [facility] Radiology Study observation (narrative) [facility] Portable XR Chest ViewsOrder ed By: Joanie Nugent on 09-04-2023 [facility] Work Phone: TACROLIMUS LEVEL, TROUGH (ID E DRUG LEVEL)on 09-04-2023 Interpretation and review of laboratory results Abnormal [facility] Tacrolimus (Bld) [Mass/Vol] 3.6 ng/mL Low [facility] [place] Tacrolimus, Trough 3.6 ng/mL Low Bone Susana ow Transplant: 4.0-12.0, Therapeutic: 5.0-15.0 [facility] Comment on above: Order Comment: Pleas e draw at specified interval PRIOR to dose. Do not hold dose to wait for level. Specimens batched twice per day, (M-) and once per day weekends Method performed is a chemiluminescent microparticle immunoasssay on the [employer] i2000. The range is based on experience at [facility] and users should be aware that target concentrations vary widely depending on concomitant therapy, time post-transplant, and desired degree of immunosuppression. Performed By: #### T ACRO #### [facility] (DEFAULT) [address] [id number] XR CHEST PORTABLEon 09-04-20 XR CHEST PORTABLE [...] the left lung likely infectious/inflammatory process. Normal [facility] ASPERGILLUS ANTIGEN, BALon 1 Galactomannan Ag IA Qn (Unsp spec) <0.500 NINF [facility] Galactomannan Ag IA Qn (Unsp spec) <0.500 NINF [facility] BAL CONSULTOrdered By: Noa Peralta on 09-03-2023 ALVEOLAR MACROPHAGES 32 % [facility] Work Phone: Bal comments Correlation with microbiology stains and cultures is recommended. [facility] Work Phone: Bal Diff Quik Stain Quality Check Acceptable [facility] Work Phone: BKR BAL INTERPRETATION Cellular specimen comprised of alveolar macrophages and small lymphocytes. No definitive microorganisms are observed. Moderate degenerative changes. [facility] Work Phone: BKR DX CODE Use Ordering [facility] Work Phone: Eosinophils Patterson stain Ql (Unsp spec) 0 % [facility] Work Phone: Lymphocytes/100 WBC (Bld) 57 % [facility] Work Phone: Neutrophils/100 WBC Manual cnt (Bronch spec) 11 % [facility] Work Phone: Pathologist review Jame (Unsp spec) [Interp] Leonardo Peralta MD [facility] Work Phone: [facility] Work Phone: BAL CONSULTon 09-03-2023 ALVEOLAR MACROPHAGES 33 % [facility] Bal comments Correlation with microbiology stains and cultures is recommended. Correlation with viral studies is recommended. [facility] Bal Diff Quik Stain Quality Check Acceptable [facility] BKR BAL INTERPRETATION Cellular specimen comprised of alveolar macrophages and small lymphocytes. No definitive microorganisms are observed. Rare degenerating cells with changes suggestive of viral cytopathic effect are noted. Moderate degenerative changes. [facility] BKR DX CODE Use Ordering [facility] Eosinophils Patterson stain Ql (Unsp spec) 0 % [facility] Lymphocytes/100 WBC (Bld) 49 % [facility] Neutrophils/100 WBC Manual cnt (Bronch spec) 18 % [facility] Pathologist review Jame (Unsp spec) [Interp] Leonardo Peralta MD [facility] BRONCHOSCOPYon 09-03-2023 LAB, [facility] CBC,PLATELETSon 09-03-2023 Hematocrit (Bld) [Volume fraction] 39.6 % Normal 39.6-48.8 [facility] Comment on above: Performed By: #### T ACRO #### [facility] (DEFAULT) [address] [address] Hemoglobin (Bld) [Mass/Vol] 12.8 g/dL Low 13.4-16.8 [facility] Comment on above: Performed By: #### T ACRO #### [facility] (DEFAULT) [address] [place] [address] 62093 MCV (RBC) [Entitic vol] 85.9 fL Normal 79.0-94.5 [facility] Comment on above: Performed By: #### T ACRO #### [facility] (DEFAULT) [address] [place] [address] 36066 Mean Cell Hgb 27.8 pg Normal 26.1-33.3 [facility] Comment on above: Performed By: #### T ACRO #### [facility] (DEFAULT) [address] [place] [address] 41214 Mean Cell Hgb Conc 32.3 g/dL Normal 31.9-36.5 [facility] Comment on above: Performed By: #### T ACRO #### [facility] (DEFAULT) [address] [place] [address] 16319 Platelet mean volume (Bld) [Entitic vol] 9.4 fL Normal 8.7-12.3 [facility] Comment on above: Performed By: #### T ACRO #### [facility] (DEFAULT) [address] [place] [address] 41506 Platelets (Bld) [#/Vol] 222 10*3/uL Normal 146-337 [facility] Comment on above: Performed By: #### T ACRO #### [facility] (DEFAULT) [address] [place] [address] 67872 RBC (Bld) [#/Vol] 4.61 10*6/uL Normal 4.38-5.83 [facility] Comment on above: Performed By: #### T ACRO #### [facility] (DEFAULT) [address] [place] [address] 93094 RBC Distribution 13.4 % Normal 10.9-14.3 [facility] Comment on above: Performed By: #### T ACRO #### [facility] (DEFAULT) [address] [place] [address] 41588 WBC (Bld) [#/Vol] 4.36 10*3/uL Normal 3.73-10.10 [facility] Comment on above: Performed By: #### T ACRO #### [facility] (DEFAULT) [address] [place] [address] 77174 Erythrocyte distribution width (RBC) [Ratio] 13.4 % 10.9 - 14.3 % [facility] Hematocrit (Bld) [Volume fraction] 39.6 % 39.6 - 48.8 % [facility] Hemoglobin (Bld) [Mass/Vol] 12.8 g/dL Low 13.4 - 16.8 g/dL [facility] Interpretation and review of laboratory results Abnormal [facility] MCH (RBC) [Entitic mass] 27.8 pg 26.1 - 33.3 pg [facility] MCHC (RBC) [Mass/Vol] 32.3 g/dL 31.9 - 36.5 g/dL [facility] MCV (RBC) [Entitic vol] 85.9 fL 79.0 - 94.5 fL [facility] Platelet mean volume (Bld) [Entitic vol] 9.4 fL 8.7 - 12.3 fL [facility] Platelets (Bld) [#/Vol] 222 10*3/uL 146 - 337 K/uL [facility] RBC (Bld) [#/Vol] 4.61 10*6/uL [facility] WBC (Bld) [#/Vol] 4.36 10*3/uL 3.73 - 10. 10 K/uL [facility] CHEM 7 (LYTES,BUN,CREA,GLUC) on 09-03-2023 Anion gap [Moles/Vol] 12 mmol/L Normal 7-17 [facility] Comment on above: Performed By: #### L EGN #### [facility] (DEFAULT) [address] [place] [address] 59298 Chloride [Moles/Vol] 104 mmol/L Normal 98-108 [facility] Comment on above: Performed By: #### L EGN #### [facility] (DEFAULT) [address] [place] [address] 38853 CO2 [Moles/Vol] 24 mmol/L Normal 21-31 [facility] Comment on above: Performed By: #### L EGN #### [facility] (DEFAULT) [address] [place] [address] 26530 Creatinine [Mass/Vol] 1.20 mg/dL Normal 0.70-1.30 [facility] Comment on above: Performed By: #### L EGN #### [facility] (DEFAULT) [address] [place] [address] 23732 GFR/1.73 sq M.predicted among non-blacks MDRD (S/P/Bld) [Vol rate/Area] 73 mL/min/{1.73_m2} Normal >=60 [facility] Comment on above: Result Comment: Repo rted eGFR is based on the CKD-EPI 2020 equation using creatinine, age, and sex. Performed By: #### L EGN #### [facility] (DEFAULT) [address] [place] [address] 20616 Glucose [Mass/Vol] 112 mg/dL High 70-99 [facility] Comment on above: Performed By: #### L EGN #### [facility] (DEFAULT) [address] [place] [address] 36503 Osmolality [Osmolality] 288 mosm/kg Normal 278-305 [facility] Comment on above: Performed By: #### L EGN #### [facility] (DEFAULT) [address] [place] [address] 11753 Potassium [Moles/Vol] 4.1 mmol/L Normal 3.5-5.0 [facility] Comment on above: Performed By: #### L EGN #### [facility] (DEFAULT) [address] [place] [address] 90390 Sodium [Moles/Vol] 136 mmol/L Normal 135-145 [facility] Comment on above: Performed By: #### L EGN #### [facility] (DEFAULT) [address] [place] [address] 89391 Urea nitrogen [Mass/Vol] 17 mg/dL Normal 7-25 [facility] Comment on above: Performed By: #### L EGN #### [facility] (DEFAULT) [address] [place] [address] 05759 Urea nitrogen/Creatinine [Mass ratio] 14 mg/mg Normal [facility] Comment on above: Performed By: #### L EGN #### [facility] (DEFAULT) [address] [place] [address] 18363 Anion gap [Moles/Vol] 12 mmol/L 7 - 17 mmol/L [facility] Chloride [Moles/Vol] 104 mmol/L 98 - 10 8 mmol/L [facility] CO2 [Moles/Vol] 24 mmol/L 21 - 31 mmol/L [facility] Creatinine [Mass/Vol] 1.20 mg/dL 0.70 - 1.30 mg/dL [facility] eGFR, CKD-EPI, Male 73 - PINF [facility] Glucose [Mass/Vol] 112 mg/dL High 70 - 99 mg/dL [facility] Osmolality Calc [Osmolality] 288 [facility] Potassium [Moles/Vol] 4.1 mmol/L 3.5 - 5.0 mmol/L [facility] Sodium [Moles/Vol] 136 mmol/L 135 - 145 [facility] Urea nitrogen [Mass/Vol] 17 mg/dL 7 - 25 mg/dL [facility] Urea nitrogen/Creatinine [Mass ratio] 14 mg/mg [facility] CYTOLOGY, NON-GYNOrdered By: Sherice Jimenez on 09-03-2023 CYTOLOGIC DIAGNOSIS k3lmmQJeXPQmyUZzXXQcU8h homMlEJRdhTIhV6OdmkibCW ulQO9fNA0sxXwckTVdiYYzB WEvMnPwi0qes577mNSmy2sz GEWOyaampIv8b6ugVTPQzQ3 bu0l5fV30HLDorM9mgXXsAL giqdLbQWnaotIqibFfLpa3L QF7vUxqPsiuiGC5mQKieKY0 AQlvg3LpoEjgiOcqDCV0JLH rDnfwKQrtxVT9bDDjhNjitB TyXF8ge1wefCJ7llZoAAR1j IwtiZJ8cVvujenha3zncKB7 jSI0ULkugKI1LKihIqZiI1p yAPZixY4iZ12kQ8bfPSMulQ ksBVzlIIGlfMP7RDA7XEZod 1xsZXZlbHRleHRcJzAxXCdi Pyg0t4myWUCglZ75uUHeycJ 5eLeuQApwsIS7QO88OAdbx0 LjCOZsgOpkUFEdoZ7iOnSeQ GxldmVsbmZjbjIzXGxldmVs uwLpZHyrdyIzt1VcmhDdzBT 8FWllvkBdaOZ3jTvdALGsI7 Y6Y233JEzpsgVdjqFhZxWow mo3DOLflVculZqrnMsfktJn DRgjhiQahwCeBnLiaTL6DCi vNdBbPnHkeAY6IYvgTiGgjK G9BXmncOMyrAN3WSxyaSH2B Cy2BJo5YRovXFctYfm8mGkw iYU8QTbfcM5lFJIjN31vIuN 4r5nayFN6wTX9XPizeQP1LH gtQpWuJ7jvNDCjgJ3tG11oS 1ftNYUsnPyzAMvyJNBcxAN3 ITO3SFWxt1zgOZIjzDQmzWC aWoSzRDjzSbd5o0anICWmsH 51hUYnymB3bJcgZH96WToqa 8AhRXYwmKxlUIZgbD5oAlXc XGxldmVsbmZjbjIzXGxldmV mggZyZJevimVcr2UklhBtvD C3VOgmdtTjoMD0tQuqJKZhO 5R5S217LYuvgcIlqhOpWbAs kdo4WZIrrWmdjYvlrJtbmvB qILsfegRcqcNuVqJveRU8XN lyLuSnAuVbsLV4CEcaAhUew ZF1NRpnoWDjuUI2AUnuqMZ5 GZt7XSn6WSssRFubIhe1cNy rgPL2ZBoetY9tDKWxU33xKd F7f0ppxZQ4ePV5IGvojCN4H IecYxQcA2drRVIxnR1sL37u E0pjSUSxlQxkSKlvYJPqdDB 0ZQI1AFNdt9pnZDMqzUQyiA QlXrGkRWbaThw5e3rhVYKzp L42qDCyjxO4aNaoVC44XHpv j0HbIBJdqMjmIKGbtK7lOpD zXGxldmVsbmZjbjIzXGxldm FucuKqMIkewkYfp0ZofdMnf GL0BXjkzhUocEC3hAagSDEf U4G2W836PCsmgqMjvcBbLdP wzmc0LLVlfTtmqUwzcSaglz DpODlemfJnfbTpLzApxJN0M PorSwIhDePmiNY1JZymCzJo jUO6MHuixYMegTA9HOimxOC 5BGw1ZRx7FXpsLWclCfp5uM izqKS4CFwqyJ6kLNCeN95nN jX8tQ25FGgxtJamqF57VQRg jLPzpQSfcDD2GMxdnWfdrM0 2BKCgsPFqTQzls7WpRUAvGw N1SWJ4HJIddPjixA15OXMdu XCfM144edMxITtvLM08KWSl cGVydzEyMjQwXHBhcGVyaDE 0FFAaGM0migfrYKkmUPpwVV LsunF3TMSajKMiR3TbRCUzH V4lqukxKNK5NCkuVXNgDUW4 IzFbKVSth8Xecfc7PsVjeKh 8p3ulDJNzZFHwkXlfy3mgQK X3WIGtzAKjZ2viiZ2sVIZhJ O4yeilad8pmSKzlVCkvMPOo nXD3cfF4HYYigPFgG5MihH6 sRAEuRBNqtaHrfFcqvR9tDl vqdtMqYKRhZPPNLiOGCi7CX 0kICDeNQS4RHKKtYWSPNLjJ LITNBQYYQIgZZ9BLVKlDBsN nBWDcCGPaP6tIF9fAN8yrIw xkKqIaZApdDQTeByEeP4AqA VSsajjgVFLmPSJRLK4YMWUL BCCNZf6BDQO2RFZiipqiaZL 7JAipzsQhiNr3kRIdfBeqcW 5cYlxmczIyXGNmMSBObyBNY EkjK37huyTrZ3PhwJMrWWRf IHbmVX15sIInPUNgmBHoHYk 1vG6vZHqjrRejnuQKyNSrqU 1lblxiMFxjZjBccGFyXGxpM FxsczBccGFyfQ== [facility] Work Phone: Case Report [facility] Work Phone: Clinical History i5lseCZpUSUcwCFdFUWr M1x eznZmEDLzoFQtW8LoqxacAS plAO5cVQ9tzTckpYHtnSCjR DUqTvXsj1ycs804dGOuo7eo MHEUhejleZz1xLsdW58bo9K 8KljzB1kiOJBcFTymRKBoNF ymtEDoPIk0MVGbpENeryRsX zHuDKFstKNwpXG6PUUbDQ8u fjyaEQdlCDyoCETgikO8SDD xpBMdH9IxXAEtIX8zmkpsDX L5BLqcDOXjSWM5UiFqULOnd 3Euhah4KsShsPr1u8iwJVHh CXHxdJkhs1knGPP5IEYdcNF vG0tbeP4iEWAwZX2vlndtp4 soRRyuCOneOXFomQP3nqT8A VIbvWUvJ0DjtR0zCXWeLJAa lhEsoInqrD4gGkRnWEyhTfN gUmVuYWwgdHJhbnNwbGFudC 1wDUSstm4= [facility] Work Phone: For Immediate Release to Patient's MyChart? Yes Yes [facility] Work Phone: Gross Description i7ndbRNqWJUteNCyGJKf M1x vjtBhFEOunJUaN4DkucobEQ lxBU7lGJ1vpYeruFSfyYMwR VWoEdJqs4vgd915vYNut3vt VBBInkqjwIb1mCqyC43ho5L 6AkgqQ98lfIIfPHJ9OWQsDF QvwYSeAMVzIMR8DZOhfHMkH 6nbHZBxZA0xlanjREzhVPkq SXLogCR1JWNucSOqN5UoUAZ iXTnoRBJoroi4OjDzMu7lyK VyeTcyMFxwYXJkXHBsYWluX GZzMjAgTExMIEJBTFxwYXIg ZBYyiTAsYUm9EPKwrM8emLM yfrNuxVKcvL2jkTycHVjoLZ IgMSBUUCBzbGlkZSBQYXAgc 4YmmI8ysVIbNFXpafArrLGw XHBhcn0= [facility] Work Phone: [facility] Work Phone: HEPATIC FUNCTION PANELon Albumin [Mass/Vol] 3.2 g/dL Low 3.5-5.0 [facility] Comment on above: Performed By: #### L EGN #### [facility] (DEFAULT) [address] [place] [address] 71491 ALP [Catalytic activity/Vol] 118 U/L Normal 32-126 [facility] Comment on above: Performed By: #### L EGN #### [facility] (DEFAULT) [address] [place] [address] 90097 ALT [Catalytic activity/Vol] 25 U/L Normal 10-52 [facility] Comment on above: Performed By: #### L EGN #### [facility] (DEFAULT) [address] [place] [address] 87808 AST [Catalytic activity/Vol] 32 U/L Normal 10-39 [facility] Comment on above: Performed By: #### L EGN #### [facility] (DEFAULT) [address] [place] [address] 34643 Bilirubin [Mass/Vol] 1.0 mg/dL Normal <1.5 [facility] Comment on above: Performed By: #### L EGN #### [facility] (DEFAULT) [address] [place] [address] 36392 Bilirubin.indirect [Mass/Vol] 0.3 mg/dL High <0.3 [facility] Comment on above: Performed By: #### L EGN #### [facility] (DEFAULT) [address] [place] [address] 63975 Protein [Mass/Vol] 6.5 g/dL Normal 6.4-8.3 [facility] Comment on above: Performed By: #### L EGN #### [facility] (DEFAULT) [address] [place] [address] 25365 Albumin [Mass/Vol] 3.2 g/dL Low 3.5 - 5.0 g/dL [facility] ALP [Catalytic activity/Vol] 118 U/L 32 - 126 U/L [facility] ALT [Catalytic activity/Vol] 25 U/L 10 - 52 U/L [facility] AST [Catalytic activity/Vol] 32 U/L 10 - 39 U/L [facility] Bilirubin [Mass/Vol] 1.0 mg/dL NINF - 1.5 mg/dL [facility] Bilirubin.direct [Mass/Vol] 0.3 mg/dL High NINF - 0.3 mg/dL [facility] Protein [Mass/Vol] 6.5 g/dL 6.4 - 8.3 g/dL [facility] HISTOPLASMA AND BLASTOMYCES ANTIGEN, ENZYME IMMUNOASSAY, SERMon 09-03-2023 Histoplasma/Blastomyc es Ag Result Detected Critically abnormal Not Detected [facility] Histoplasma/Blastomyc es Ag Value 5.3 ng/mL [facility] Interpretation and review of laboratory results Abnormal [facility] IMMUNOPHENOTYPING, TISSUE/FL UIDon 09-03-2023 BKR DX CODE Use Ordering Normal [facility] Comment on above: Order Comment: Pleas e draw at specified interval PRIOR to dose. Do not hold dose to wait for level. Specimens batched twice per day, (M-F) and once per day weekends Method performed is a chemiluminescent microparticle immunoasssay on the [employer] i2000. The range is based on experience at [facility] and users should be aware that target concentrations vary widely depending on concomitant therapy, time post-transplant, and desired degree of immunosuppression. Performed By: #### T ACRO #### [facility] (DEFAULT) [address] [place] [address] Flow Interpretation See Comment Normal [facility] Comment on above: Order Comment: Pleas e draw at specified interval PRIOR to dose. Do not hold dose to wait for level. Specimens batched twice per day, (M-F) and once per day weekends Method performed is a chemiluminescent microparticle immunoasssay on the [employer] i2000. The range is based on experience at [facility] and users should be aware that target concentrations vary widely depending on concomitant therapy, time post-transplant, and desired degree of immunosuppression. Performed By: #### T ACRO #### [facility] (DEFAULT) [address] [place] [id number] Flow Interpreted by: Yossi Perla MD, PhD [facility] Comment on above: Order Comment: Pleas e draw at specified interval PRIOR to dose. Do not hold dose to wait for level. Specimens batched twice per day, (M-F) and once per day weekends Method performed is a chemiluminescent microparticle immunoasssay on the [employer] i2000. The range is based on experience at [facility] and users should be aware that target concentrations vary widely depending on concomitant therapy, time post-transplant, and desired degree of immunosuppression. Performed By: #### T ACRO #### [facility] (DEFAULT) [address] [place] [address] MAGNESIUMon 09-03-2023 Magnesium [Mass/Vol] 1.6 mg/dL Normal 1.6-2.6 [facility] Comment on above: Performed By: #### T ACRO #### [facility] (DEFAULT) [address] [place], [place] [id number] Interpretation and review of laboratory results Normal [facility] Magnesium [Mass/Vol] 1.6 mg/dL 1.6 - 2 .6 mg/dL [facility] No Panel Informationon 09-03 Interpretation and review of laboratory results Abnormal [facility] PARVOVIRUS (B19) DNA, PCR, B LOODon 09-03-2023 PARVOVIRUS B19 BY RAPID PCR Not detected Not Detected [facility] ID SPEC SOURCE Whole Blood [facility] Portable XR Chest Viewson RADIOLOGY RADIOLOGY [facility] Radiology Study observation (narrative) [facility] Portable XR Chest ViewsOrder ed By: Lester Grove on 09-03-2023 [facility] Work Phone: XR CHEST PORTABLEon 09-03-20 [...] have reviewed and approved this report. Normal [facility] ACID FAST CULTUREon 09-02-20 Bacteria identified Cx Nom (Unsp spec) NO GROWTH DAY 42 OF Normal [facility] Comment on above: Performed By: #### H EMOGC #### [facility] (DEFAULT) [address] [address] Fluorochrome Stain No acid Fast Bacillu s Seen Normal [facility] Comment on above: Performed By: #### H EMOGC #### [facility] (DEFAULT) [address] [place] [address] 40293 Bacteria identified Cx Nom (Unsp spec) NO GROWTH DAY 42 OF 42 Normal [facility] Comment on above: Order Comment: Pleas e draw at specified interval PRIOR to dose. Do not hold dose to wait for level. Specimens batched twice per day, (M-F) and once per day weekends Method performed is a chemiluminescent microparticle immunoasssay on the [employer] i2000. The range is based on experience at [facility] and users should be aware that target concentrations vary widely depending on concomitant therapy, time post-transplant, and desired degree of immunosuppression. Performed By: #### T ACRO #### [facility] (DEFAULT) [address] [address] Fluorochrome Stain No acid Fast Bacillu s Seen Normal [facility] Comment on above: Order Comment: Pleas e draw at specified interval PRIOR to dose. Do not hold dose to wait for level. Specimens batched twice per day, (M-F) and once per day weekends Method performed is a chemiluminescent microparticle immunoasssay on the [employer] i2000. The range is based on experience at [facility] and users should be aware that target concentrations vary widely depending on concomitant therapy, time post-transplant, and desired degree of immunosuppression. Performed By: #### T ACRO #### [facility] (DEFAULT) [address] [place] [address] ASPERGILLUS (GALACTOMANNAN), ANTIGENon 09-02-2023 Galactomannan Ag IA Qn <0.500 NINF [facility] ASPERGILLUS ANTIGEN, BALon 1 Aspergillus Galactomannan Antigen, BAL <0.500 Normal <0.5 [facility] Comment on above: Result Comment: ADDITIONAL INFORMATION This is a qualitative test and the resulted index value is not indicative of disease severity. Serial testing is recommended for patients at high risk for invasive aspergillosis. This assay was performed using the FDA-cleared [employer] Aspergillus Galactomannan EIA. Test Performed by: [place] [address] Hydrogen Plant Operator: Rosendo Bose M.D. Ph.D.; CLIA# [id number] Performed By: #### T ACRO #### [facility] (DEFAULT) [address] [place] [address] Aspergillus Galactomannan Antigen, BAL <0.500 Normal <0.5 [facility] Comment on above: Order Comment: Pleas e draw at specified interval PRIOR to dose. Do not hold dose to wait for level. Specimens batched twice per day, (M-) and once per day weekends Method performed is a chemiluminescent microparticle immunoasssay on the [employer] i2000. The range is based on experience at [facility] and users should be aware that target concentrations vary widely depending on concomitant therapy, time post-transplant, and desired degree of immunosuppression. Result Comment: ADDITIONAL INFORMATION This is a qualitative test and the resulted index value is not indicative of disease severity. Serial testing is recommended for patients at high risk for invasive aspergillosis. This assay was performed using the FDA-cleared [employer]Rad Platelia Aspergillus Galactomannan EIA. Test Performed by: [place] [address] [employer] Plant Operator: Rosendo Bose M.D. Ph.D.; CLIA# [id number] Performed By: #### T ACRO #### [facility] (DEFAULT) [address] [place] [address] ATYPICAL BACTERIAL PNEUMONIA ,PCROrdered By: Shari Contreras on 09-02-2023 B. parapertussis DNA ESTELITA+probe Ql (Unsp spec) Not detected Not Detected [facility] B. pertussis DNA ESTELITA+probe Ql (Unsp spec) Not detected Not Detected [facility] C. pneumoniae DNA ESTELITA+probe Ql (Unsp spec) Not detected Not Detected [facility] Interpretation and review of laboratory results Normal [facility] M. pneumoniae DNA ESTELITA+probe Ql (Unsp spec) Not detected Not Detected [facility] ATYPICAL BACTERIAL PNEUMONIA ,PCRon 09-02-2023 Bordetella Parapertussis Not detected Normal Not Detected [facility] Comment on above: Order Comment: Viral transport [...] by [facility]. It has not been cleared or approved by the FDA. The laboratory is required under CLIA as qualified to perform high-complexity testing. This test is used for clinical purposes. It should not be regarded as investigational or for research. Performed By: #### [facility] #### [facility] (DEFAULT) [address] [place] [address] Bordetella Pertussis Not detected Normal Not Detected [facility] Comment on above: Order Comment: Viral transport [...] by [facility]. It has not been cleared or approved by the FDA. The laboratory is required under CLIA as qualified to perform high-complexity testing. This test is used for clinical purposes. It should not be regarded as investigational or for research. Performed By: #### [facility] #### [facility] (DEFAULT) [address] [address] Chlamydia Pneumoniae Not detected Normal Not Detected [facility] Comment on above: Order Comment: Viral transport [...] by [facility]. It has not been cleared or approved by the FDA. The laboratory is required under CLIA as qualified to perform high-complexity testing. This test is used for clinical purposes. It should not be regarded as investigational or for research. Performed By: #### [facility] #### [facility] (DEFAULT) [address] [place] [address] Mycoplasma Pneumoniae Not detected Normal Not Detected [facility] Comment on above: Order Comment: Viral transport [...] by [facility]. It has not been cleared or approved by the FDA. The laboratory is required under CLIA as qualified to perform high-complexity testing. This test is used for clinical purposes. It should not be regarded as investigational or for research. Performed By: #### [facility] #### [facility] (DEFAULT) [address] [place] [address] BAL CONSULTon 09-02-2023 ALVEOLAR MACROPHAGES 33 % Normal [facility] Comment on above: Order Comment: BAL c onsultIf > 15% lymphocytes - please send for flow. Performed By: #### [facility] #### [facility] (DEFAULT) [address] [address] Bal comments Correlation with microbiology stains and cultures is recommended. Correlation with viral studies is recommended. [facility] Comment on above: Order Comment: BAL c onsultIf > 15% lymphocytes - please send for flow. Performed By: #### H EMOGC #### [facility] (DEFAULT) [address] [address] Bal Diff Quik Stain Quality Check Acceptable Normal [facility] Comment on above: Order Comment: BAL c onsultIf > 15% lymphocytes - please send for flow. Performed By: #### H EMOGC #### [facility] (DEFAULT) [address] [address] Bal Reviewed By: Leonardo Peralta MD [facility] Comment on above: Order Comment: BAL c onsultIf > 15% lymphocytes - please send for flow. Performed By: #### H EMOGC #### [facility] (DEFAULT) [address] [address] BKR BAL INTERPRETATION Cellular specimen comprised of alveolar macrophages and small lymphocytes. No definitive microorganisms are observed. Rare degenerating cells with changes suggestive of viral cytopathic effect are noted. Moderate degenerative changes. Normal [facility] Comment on above: Order Comment: BAL c onsultIf > 15% lymphocytes - please send for flow. Performed By: #### H EMOGC #### [facility] (DEFAULT) [address] [address] BKR DX CODE Use Ordering Normal [facility] Comment on above: Order Comment: BAL c onsultIf > 15% lymphocytes - please send for flow. Performed By: #### H EMOGC #### [facility] (DEFAULT) [address] [address] Eosinophils/100 WBC (Bld) 0 % [facility] Comment on above: Order Comment: BAL c onsultIf > 15% lymphocytes - please send for flow. Performed By: #### H EMOGC #### [facility] (DEFAULT) [address] [address] Lymphocytes/100 WBC (Bld) 49 % Normal [facility] Comment on above: Order Comment: BAL c onsultIf > 15% lymphocytes - please send for flow. Performed By: #### H EMOGC #### [facility] (DEFAULT) [address] [place] [address] Neutrophils/100 WBC (Bld) 18 % Normal [facility] Comment on above: Order Comment: BAL c onsultIf > 15% lymphocytes - please send for flow. Performed By: #### H EMOGC #### [facility] (DEFAULT) [address] [place] [address] ALVEOLAR MACROPHAGES 32 % Normal [facility] Comment on above: Order Comment: BAL c onsult for cell differential and pathologist review. Please do flow cytometry if > 12% lymphocytes Performed By: #### H EMOGC #### [facility] (DEFAULT) [address] [place] [address] Bal comments Correlation with microbiology stains and cultures is recommended. Normal [facility] Comment on above: Order Comment: BAL c onsult for cell differential and pathologist review. Please do flow cytometry if > 12% lymphocytes Performed By: #### H EMOGC #### [facility] (DEFAULT) [address] [place] [address] Bal Diff Quik Stain Quality Check Acceptable Normal [facility] Comment on above: Order Comment: BAL c onsult for cell differential and pathologist review. Please do flow cytometry if > 12% lymphocytes Performed By: #### H EMOGC #### [facility] (DEFAULT) [address] [place] [address] Bal Reviewed By: Leonardo Peralta MD [facility] Comment on above: Order Comment: BAL c onsult for cell differential and pathologist review. Please do flow cytometry if > 12% lymphocytes Performed By: #### H EMOGC #### [facility] (DEFAULT) [address] [place] [address] BKR BAL INTERPRETATION Cellular specimen comprised of alveolar macrophages and small lymphocytes. No definitive microorganisms are observed. Moderate degenerative changes. Normal [facility] Comment on above: Order Comment: BAL c onsult for cell differential and pathologist review. Please do flow cytometry if > 12% lymphocytes Performed By: #### H EMOGC #### [facility] (DEFAULT) [address] [place] [address] BKR DX CODE Use Ordering Normal [facility] Comment on above: Order Comment: BAL c onsult for cell differential and pathologist review. Please do flow cytometry if > 12% lymphocytes Performed By: #### H EMOGC #### [facility] (DEFAULT) [address] [place] [address] Eosinophils/100 WBC (Bld) 0 % Normal [facility] Comment on above: Order Comment: BAL c onsult for cell differential and pathologist review. Please do flow cytometry if > 12% lymphocytes Performed By: #### H EMOGC #### [facility] (DEFAULT) [address] [place] [address] Lymphocytes/100 WBC (Bld) 57 % Normal [facility] Comment on above: Order Comment: BAL c onsult for cell differential and pathologist review. Please do flow cytometry if > 12% lymphocytes Performed By: #### H EMOGC #### [facility] (DEFAULT) [address] [place] [address] Neutrophils/100 WBC (Bld) 11 % Normal [facility] Comment on above: Order Comment: BAL c onsult for cell differential and pathologist review. Please do flow cytometry if > 12% lymphocytes Performed By: #### H EMOGC #### [facility] (DEFAULT) [address] [address] BRONCHOSCOPYon 09-02-2023 Radiology Study observation (narrative) [facility] Bacteria identified Cx Nom ( Bld)on 09-02-2023 Bacteria identified Cx Nom (Unsp spec) NO GROWTH DAY 5 OF 5 [facility] CBC,PLATELETSon 09-02-2023 Hematocrit (Bld) [Volume fraction] 39.9 % Normal 39.6-48.8 [facility] Comment on above: Performed By: #### H EMOGC #### [facility] (DEFAULT) [address] [place] [address] Hemoglobin (Bld) [Mass/Vol] 12.9 g/dL Low 13.4-16.8 [facility] Comment on above: Performed By: #### H EMOGC #### [facility] (DEFAULT) [address] [place] [address] MCV (RBC) [Entitic vol] 86.4 fL Normal 79.0-94.5 [facility] Comment on above: Performed By: #### H EMOGC #### [facility] (DEFAULT) [address] [address] Mean Cell Hgb 27.9 pg Normal 26.1-33.3 [facility] Comment on above: Performed By: #### H EMOGC #### [facility] (DEFAULT) [address] [address] Mean Cell Hgb Conc 32.3 g/dL Normal 31.9-36.5 [facility] Comment on above: Performed By: #### H EMOGC #### [facility] (DEFAULT) [address] [address] Platelet mean volume (Bld) [Entitic vol] 9.5 fL Normal 8.7-12.3 [facility] Comment on above: Performed By: #### H EMOGC #### [facility] (DEFAULT) [address] [address] Platelets (Bld) [#/Vol] 210 10*3/uL Normal 146-337 [facility] Comment on above: Performed By: #### H EMOGC #### [facility] (DEFAULT) [address] [address] RBC (Bld) [#/Vol] 4.62 10*6/uL Normal 4.38-5.83 [facility] Comment on above: Performed By: #### H EMOGC #### [facility] (DEFAULT) [address] [place] [address] RBC Distribution 13.2 % Normal 10.9-14.3 [facility] Comment on above: Performed By: #### [facility] #### [facility] (DEFAULT) [address] [place] [address] WBC (Bld) [#/Vol] 4.12 10*3/uL Normal 3.73-10.10 [facility] Comment on above: Performed By: #### [facility] #### [facility] (DEFAULT) [address] [place] [address] Erythrocyte distribution width (RBC) [Ratio] 13.2 % 10.9 - 14.3 % [facility] Hematocrit (Bld) [Volume fraction] 39.9 % 39.6 - 48.8 % [facility] Hemoglobin (Bld) [Mass/Vol] 12.9 g/dL Low 13.4 - 16.8 g/dL [facility] Interpretation and review of laboratory results Abnormal [facility] MCH (RBC) [Entitic mass] 27.9 pg 26.1 - 33.3 pg [facility] MCHC (RBC) [Mass/Vol] 32.3 g/dL 31.9 - 36.5 g/dL [facility] MCV (RBC) [Entitic vol] 86.4 fL 79.0 - 94.5 fL [facility] Platelet mean volume (Bld) [Entitic vol] 9.5 fL 8.7 - 12.3 fL [facility] Platelets (Bld) [#/Vol] 210 10*3/uL 146 - 337 K/uL [facility] RBC (Bld) [#/Vol] 4.62 10*6/uL [facility] WBC (Bld) [#/Vol] 4.12 10*3/uL 3.73 - 10. 10 K/uL [facility] CHEM 7 (LYTES,BUN,CREA,GLUC) on 09-02-2023 Anion gap [Moles/Vol] 13 mmol/L Normal 7-17 [facility] Comment on above: Performed By: #### Y PNRP #### [facility] (DEFAULT) [address] [place] [address] Chloride [Moles/Vol] 105 mmol/L Normal 98-108 [facility] Comment on above: Performed By: #### Y PNRP #### [facility] (DEFAULT) [address] [place] [address] CO2 [Moles/Vol] 22 mmol/L Normal 21-31 [facility] Comment on above: Performed By: #### Y PNRP #### [facility] (DEFAULT) [address] [place] [address] Creatinine [Mass/Vol] 1.25 mg/dL Normal 0.70-1.30 [facility] Comment on above: Performed By: #### Y PNRP #### [facility] (DEFAULT) [address] [place] [address] GFR/1.73 sq M.predicted among non-blacks MDRD (S/P/Bld) [Vol rate/Area] 69 mL/min/{1.73_m2} Normal >=60 [facility] Comment on above: Result Comment: Repo rted eGFR is based on the CKD-EPI 2020 equation using creatinine, age, and sex. Performed By: #### Y PNRP #### [facility] (DEFAULT) [address] [place] [address] Glucose [Mass/Vol] 105 mg/dL High 70-99 [facility] Comment on above: Performed By: #### Y PNRP #### [facility] (DEFAULT) [address] [place] [address] Osmolality [Osmolality] 287 mosm/kg Normal 278-305 [facility] Comment on above: Performed By: #### Y PNRP #### [facility] (DEFAULT) [address] [place] [address] Potassium [Moles/Vol] 4.3 mmol/L Normal 3.5-5.0 [facility] Comment on above: Performed By: #### Y PNRP #### [facility] (DEFAULT) [address] [place] [address] Sodium [Moles/Vol] 136 mmol/L Normal 135-145 [facility] Comment on above: Performed By: #### Y PNRP #### [facility] (DEFAULT) [address] [place] [address] Urea nitrogen [Mass/Vol] 16 mg/dL Normal 7-25 [facility] Comment on above: Performed By: #### Y PNRP #### [facility] (DEFAULT) [address] [place] [address] Urea nitrogen/Creatinine [Mass ratio] 13 mg/mg Normal [facility] Comment on above: Performed By: #### Y PNRP #### [facility] (DEFAULT) [address] [place] [address] Anion gap [Moles/Vol] 13 mmol/L 7 - 17 mmol/L [facility] Chloride [Moles/Vol] 105 mmol/L 98 - 10 8 mmol/L [facility] CO2 [Moles/Vol] 22 mmol/L 21 - 31 mmol/L [facility] Creatinine [Mass/Vol] 1.25 mg/dL 0.70 - 1.30 mg/dL [facility] eGFR, CKD-EPI, Male 69 - [facility]F [facility] Glucose [Mass/Vol] 105 mg/dL High 70 - 99 mg/dL [facility] Osmolality Calc [Osmolality] 287 [facility] Potassium [Moles/Vol] 4.3 mmol/L 3.5 - 5.0 mmol/L [facility] Sodium [Moles/Vol] 136 mmol/L 135 - 145 mmol/L [facility] Urea nitrogen [Mass/Vol] 16 mg/dL 7 - 25 mg/[facility] Urea nitrogen/Creatinine [Mass ratio] 13 mg/mg [facility] CMV PCR,FLUIDS,URINE,EYE ETC on 09-02-2023 CMV by PCR Result Negative Normal Negative [facility] Comment on above: Result Comment: ADDITIONAL INFORMATION This test was developed and its performance characteristics determined by [facility] in a manner consistent with CLIA requirements. This test has not been cleared or approved by the U.S. Food and Drug Administration. Test Performed by: [facility] [address] [employer]gen Plant Operator: Rosendo Bose M.D. Ph.D.; CLIA# [id number] Performed By: #### T ACRO #### [facility] (DEFAULT) [address] [place] [address] CMV BY PCR SOURCE [facility] Comment on above: Performed By: #### T ACRO #### [facility] (DEFAULT) [address] [place] [address] CMV by PCR Result Negative Normal Negative [facility] Comment on above: Result Comment: ADDITIONAL INFORMATION This test was developed and its performance characteristics determined by [facility] in a manner consistent with CLIA requirements. This test has not been cleared or approved by the U.S. Food and Drug Administration. Test Performed by: [facility] [address] [employer] Plant Operator: Rosendo Bose M.D. Ph.D.; CLIA# [id number] Performed By: #### T ACRO #### [facility] (DEFAULT) [address] [place] [address] CMV BY PCR SOURCE BAL [facility] Normal [facility] Comment on above: Performed By: #### T ACRO #### [facility] (DEFAULT) [address] [place] [address] CYTOLOGY, NON-GYNon 09-02-20 CYTOLOGIC DIAGNOSIS Normal [facility] Comment on above: Result Comment: A. B RONCHOALVEOLAR LAVAGE, LEFT LOWER LOBE (CYTOLOGY): FINAL DIAGNOSIS: No Malignant Cells Are Identified Hypocellular Specimen Performed By: #### N ONJOHNNA #### [facility] (DEFAULT) [address] [place] [address] Case Report Normal [facility] Comment on above: Result Comment: [facility] Cytology Report Case: [id number] Authorizing Provider: Crow Diaz MD Collected: 09/02/2023 08:38 AM Ordering Location: [facility] Received: 09/02/2023 10:44 AM Pathologist: Sherice Jimenez MD Specimen: BRONCHOALVEOLAR LAVAGE, LLL BAL Performed By: #### N ONJONH #### [facility] (DEFAULT) [address] [place] [address] Clinical History Renal transplant. Normal [facility] Comment on above: Performed By: #### N ONJONH #### [facility] (DEFAULT) [address] [place] [address] Gross Description Normal [facility] Comment on above: Result Comment: LLL BAL 1 ml hazy colorless fld unfixed 1 TP slide Pap stain For Immediate Release to Patient's MyChart? Yes Performed By: #### N ONGNNONFNA #### [facility] (DEFAULT) [address] [place] [address] FUNGUS CULTUREon 09-02-2023 Bacteria identified Cx Nom (Unsp spec) Normal [facility] Comment on above: Order Comment: Ident ification was performed on the MALDI-TOF mass spectrometer Extrapriseyper. This test was developed by [facility]. It has not been cleared or approved by the FDA. The laboratory is regulated under CLIA as qualified to perform high-complexity testing. This test is used for clinical purposes. It should not be regarded as investigational or for research. Result Comment: [employer] Histoplasma capsulatum Performed By: #### H EMOGC #### [facility] (DEFAULT) [address] [address] Bacteria identified Cx Nom (Unsp spec) NO GROWTH DAY 28 OF 28 Normal [facility] Comment on above: Order Comment: Pleas e draw at specified interval PRIOR to dose. Do not hold dose to wait for level. Specimens batched twice per day, (M-F) and once per day weekends Method performed is a chemiluminescent microparticle immunoasssay on the [employer] i2000. The range is based on experience at [facility] and users should be aware that target concentrations vary widely depending on concomitant therapy, time post-transplant, and desired degree of immunosuppression. Performed By: #### T ACRO #### [facility] (DEFAULT) [address] [place] [address] HEPATIC FUNCTION PANELon Albumin [Mass/Vol] 3.2 g/dL Low 3.5-5.0 [facility] Comment on above: Performed By: #### Y PNRP #### [facility] (DEFAULT) [address] [address] ALP [Catalytic activity/Vol] 107 U/L Normal 32-126 [facility] Comment on above: Performed By: #### Y PNRP #### [facility] (DEFAULT) [address] [address] ALT [Catalytic activity/Vol] 20 U/L Normal 10-52 [facility] Comment on above: Performed By: #### Y PNRP #### [facility] (DEFAULT) [address] [place] [address] AST [Catalytic activity/Vol] 31 U/L Normal 10-39 [facility] Comment on above: Performed By: #### Y PNRP #### [facility] (DEFAULT) [address] [place] [address] Bilirubin [Mass/Vol] 1.0 mg/dL Normal <1.5 [facility] Comment on above: Performed By: #### Y PNRP #### [facility] (DEFAULT) [address] [address] Bilirubin.indirect [Mass/Vol] 0.3 mg/dL High <0.3 [facility] Comment on above: Performed By: #### Y PNRP #### [facility] (DEFAULT) [address] [address] Protein [Mass/Vol] 6.6 g/dL Normal 6.4-8.3 [facility] Comment on above: Performed By: #### Y PNRP #### [facility] (DEFAULT) [address] [address] Albumin [Mass/Vol] 3.2 g/dL Low 3.5 - 5.0 g/dL [facility] ALP [Catalytic activity/Vol] 107 U/L 32 - 126 U/L [facility] ALT [Catalytic activity/Vol] 20 U/L 10 - 52 U/L [facility] AST [Catalytic activity/Vol] 31 U/L 10 - 39 U/L [facility] Bilirubin [Mass/Vol] 1.0 mg/dL NINF - 1.5 mg/dL [facility] Bilirubin.direct [Mass/Vol] 0.3 mg/dL High NINF - 0.3 mg/dL [facility] Protein [Mass/Vol] 6.6 g/dL 6.4 - 8.3 g/dL [facility] HISTOPLASMA ANTIGEN, FLUIDon 09-02-2023 FH SOURCE BAL RML Normal [facility] Comment on above: Performed By: #### T ACRO #### [facility] (DEFAULT) [address] [address] Histo FLD interpretation Negative Normal [facility] Comment on above: Result Comment: ADDITIONAL INFORMATION Reference interval: None Detected Reportable Range: Positive Results reported in ng/mL from 0.20 ng/mL to 20.00 ng/mL Positive Results above 20.00 ng/mL are reported as 'Above the Limit of Quantification' Cross-reactions occur with Blastomyces spp., Coccidioides spp., and Paracoccidioides brasiliensis. This test was developed and its performance characteristics determined by [employer] [employer]. It has not been cleared or approved by the FDA; however, FDA clearance or approval is not currently required for clinical use. The results are not intended to be used as the sole means for clinical diagnosis or patient management decisions. Test Performed by: [facility] [address] [place] [address] Performed By: #### T ACRO #### [facility] (DEFAULT) [address] [place] [address] Histoplasma Antigen, FLUID Not detected Normal [facility] Comment on above: Performed By: #### T ACRO #### [facility] (DEFAULT) [address] [place] [address] HISTOPLASMA ANTIGEN,URINEon 09-02-2023 H. capsulatum Ag (U) [Mass/Vol] Not detected ng/mL [facility] H. capsulatum Ag IA Ql (U) Not detected Not Detected [facility] HISTOPLASMA CAPSULATUM/BLAST OMYCES SPECIES,PCR FLUIDon 09-02-2023 HISTO/BLASTO RESULT Negative Normal Not Applicable [facility] Comment on above: Result Comment: A Ne gative result from BAL fluid does not rule out the presence of Histoplasma capsulatum because the sensitivity from this source is suboptimal. ADDITIONAL INFORMATION This test was developed and its performance characteristics determined by [facility] in a manner consistent with CLIA requirements. This test has not been cleared or approved by the U.S. Food and Drug Administration. Test Performed by: [address] [address] [employer]gen Plant Operator: Rosendo Bose M.D. Ph.D.; IA# [id number] Performed By: #### T ACRO #### [facility] (DEFAULT) [address] [place] [address] Source BAL RML Normal [facility] Comment on above: Performed By: #### T ACRO #### [facility] (DEFAULT) [address] [place] [address] HIV 1 AND 2 ANTIBODIES/P24 A NTIGENOrdered By: Wilma Luque on 09-02-2023 HIV 1+2 Ab+HIV1 p24 Ag IA Ql Non-Reactive Non Reactive [facility] Interpretation and review of laboratory results Normal [facility] HIV 1 AND 2 ANTIBODIES/P24 A NTIGENon 09-02-2023 HIV-1/HIV-2 Ab With p24 Antigen Non-Reactive Normal Non Reactive [facility] Comment on above: Performed By: #### L [id number] ####[facility] (DEFAULT)[address] [place] [address] LEGIONELLA CULTUREon 023 Bacteria identified Cx Nom (Unsp spec) NO GROWTH DAY 7 OF 7 Normal [facility] Comment on above: Performed By: #### H EMOGC #### [facility] (DEFAULT) [address] [place] [address] Bacteria identified Cx Nom (Unsp spec) NO GROWTH DAY 7 OF 7 Normal [facility] Comment on above: Order Comment: BAL l egionella culture Performed By: #### L EGN #### [facility] (DEFAULT) [address] [place] [address] LEGIONELLA PCRon 09-02-2023 Legionella species, Culture BAL RML Normal [facility] Comment on above: Performed By: #### T ACRO #### [facility] (DEFAULT) [address] [place] [address] Legionella, pcr result Negative Normal Not Applicable [facility] Comment on above: Result Comment: ADDITIONAL INFORMATION This test was developed and its performance characteristics determined by [facility] in a manner consistent with CLIA requirements. This test has not been cleared or approved by the U.S. Food and Drug Administration. Test Performed by: [facility] [address] [employer] Operator: Rosendo Bose M.D. Ph.D.; CLIA# [id number] Performed By: #### T ACRO #### [facility] (DEFAULT) [address] [place] [address] LOWER RESPIRATORY CULTURE, B ACTERIALon 09-02-2023 Bacteria identified Cx Nom (Unsp spec) NO GROWTH DAY 2 OF 2 Normal [facility] Comment on above: Performed By: #### T ACRO #### [facility] (DEFAULT) [address] [place] [address] Microscopic observation Gram stain Nom (Unsp spec) Normal [facility] Comment on above: Result Comment: Cyto centrifuge preparation Neutrophils, Rare Red Blood Cells Present No organisms seen Performed By: #### T ACRO #### [facility] (DEFAULT) [address] [place] [address] Bacteria identified Cx Nom (Unsp spec) NO GROWTH DAY 2 OF 2 Normal [facility] Comment on above: Order Comment: BAL b acterial respiratory culture Performed By: #### H EMOGC #### [facility] (DEFAULT) [address] [place] [address] Microscopic observation Gram stain Nom (Unsp spec) Normal [facility] Comment on above: Order Comment: BAL b acterial respiratory culture Result Comment: Cyto centrifuge preparation Neutrophils, Moderate Red Blood Cells Present No organisms seen Performed By: #### H EMOGC #### [facility] (DEFAULT) [address] [place] [address] MAGNESIUMon 09-02-2023 Magnesium [Mass/Vol] 1.7 mg/dL Normal 1.6-2.6 [facility] Comment on above: Performed By: #### L EGN #### [facility] (DEFAULT) [address] [address] Interpretation and review of laboratory results Normal [facility] Magnesium [Mass/Vol] 1.7 mg/dL 1.6 - 2 .6 mg/dL [facility] No Panel Informationon 09-02 Interpretation and review of laboratory results Abnormal [facility] PNEUMOCYSTIS JIROVECI,PCRon 09-02-2023 PN Report Status DNR Normal [facility] Comment on above: Performed By: #### T ACRO #### [facility] (DEFAULT) [address] [address] PN Specimen Source BAL RML Normal [facility] Comment on above: Performed By: #### T ACRO #### [facility] (DEFAULT) [address] [address] Pneum jiroveci comment DNR Normal [facility] Comment on above: Performed By: #### T ACRO #### [facility] (DEFAULT) [address] [address] Pneumocystis jiroveci,PCR result Negative Normal Not Applicable [facility] Comment on above: Result Comment: ADDITIONAL INFORMATION This test was developed and its performance characteristics determined by [facility] in a manner consistent with CLIA requirements. This test has not been cleared or approved by the U.S. Food and Drug Administration. Test Performed by: [facility] - [address] [address] [employer] Plant Operator: Rosendo oBse M.D. Ph.D.; CLIA# [id number] Performed By: #### T ACRO #### [facility] (DEFAULT) [address] [address] PN Report Status DNR Normal [facility] Comment on above: Performed By: #### Y PNRP #### [facility] (DEFAULT) [address] [place] [address] PN Specimen Source BAL LLL Normal [facility] Comment on above: Performed By: #### Y PNRP #### [facility] (DEFAULT) [address] [place] [address] Pneum jiroveci comment DNR Normal [facility] Comment on above: Performed By: #### Y PNRP #### [facility] (DEFAULT) [address] [place] [address] Pneumocystis jiroveci,PCR result Negative Normal Not Applicable [facility] Comment on above: Result Comment: ADDITIONAL INFORMATION This test was developed and its performance characteristics determined by [facility] in a manner consistent with CLIA requirements. This test has not been cleared or approved by the U.S. Food and Drug Administration. Test Performed by: [facility] [address] [employer] Operator: Rosendo Bose M.D. Ph.D.; CLIA# [id number] Performed By: #### Y PNRP #### [facility] (DEFAULT) [address] [address] TACROLIMUS LEVEL, TROUGH (ID E DRUG LEVEL)on 09-02-2023 Interpretation and review of laboratory results Normal [facility] Tacrolimus (Bld) [Mass/Vol] 4.2 ng/mL [facility] Tacrolimus, Trough 4.2 ng/mL Normal [facility] ow Transplant: 4.0-12.0, Therapeutic: 5.0-15.0 [facility] Comment on above: Order Comment: Pleas e draw at specified interval PRIOR to dose. Do not hold dose to wait for level. Specimens batched twice per day, (M-) and once per day weekends Method performed is a chemiluminescent microparticle immunoasssay on the [employer] i2000. The range is based on experience at [facility] and users should be aware that target concentrations vary widely depending on concomitant therapy, time post-transplant, and desired degree of immunosuppression. Performed By: #### T ACRO #### [facility] (DEFAULT) [address] [place] [address] CBC,PLATELETSon 09-01-2023 Hematocrit (Bld) [Volume fraction] 38.9 % Low 39.6-48.8 [facility] Comment on above: Performed By: #### H EMOGC #### [facility] (DEFAULT) [address] [address] Hemoglobin (Bld) [Mass/Vol] 12.7 g/dL Low 13.4-16.8 [facility] Comment on above: Performed By: #### H EMOGC #### [facility] (DEFAULT) [address] [place] [address] MCV (RBC) [Entitic vol] 84.6 fL Normal 79.0-94.5 [facility] Comment on above: Performed By: #### H EMOGC #### [facility] (DEFAULT) [address] [address] Mean Cell Hgb 27.6 pg Normal 26.1-33.3 [facility] Comment on above: Performed By: #### H EMOGC #### [facility] (DEFAULT) [address] [place] [address] Mean Cell Hgb Conc 32.6 g/dL Normal 31.9-36.5 [facility] Comment on above: Performed By: #### H EMOGC #### [facility] (DEFAULT) [address] [address] Platelet mean volume (Bld) [Entitic vol] 9.4 fL Normal 8.7-12.3 [facility] Comment on above: Performed By: #### H EMOGC #### [facility] (DEFAULT) [address] [place] [address] Platelets (Bld) [#/Vol] 209 10*3/uL Normal 146-337 [facility] Comment on above: Performed By: #### H EMO #### [facility] (DEFAULT) [address] [place] [address] RBC (Bld) [#/Vol] 4.60 10*6/uL Normal 4.38-5.83 [facility] Comment on above: Performed By: #### H EMO #### [facility] (DEFAULT) [address] [place] [address] RBC Distribution 13.4 % Normal 10.9-14.3 [facility] Comment on above: Performed By: #### H EMO #### [facility] (DEFAULT) [address] [place] [address] WBC (Bld) [#/Vol] 4.41 10*3/uL Normal 3.73-10.10 [facility] Comment on above: Performed By: #### H EMO #### [facility] (DEFAULT) [address] [place] [address] Erythrocyte distribution width (RBC) [Ratio] 13.4 % 10.9 - 14.3 % [facility] Hematocrit (Bld) [Volume fraction] 38.9 % Low 39.6 - 48.8 % [facility] Hemoglobin (Bld) [Mass/Vol] 12.7 g/dL Low 13.4 - 16.8 g/dL [facility] Interpretation and review of laboratory results Abnormal [facility] MCH (RBC) [Entitic mass] 27.6 pg 26.1 - 33.3 pg [facility] MCHC (RBC) [Mass/Vol] 32.6 g/dL 31.9 - 36.5 g/dL [facility] MCV (RBC) [Entitic vol] 84.6 fL 79.0 - 94.5 fL [facility] Platelet mean volume (Bld) [Entitic vol] 9.4 fL 8.7 - 12.3 fL [facility] Platelets (Bld) [#/Vol] 209 10*3/uL 146 - 337 K/uL [facility] RBC (Bld) [#/Vol] 4.60 10*6/uL [facility] WBC (Bld) [#/Vol] 4.41 10*3/uL 3.73 - 10. 10 K/uL [facility] CHEM 7 (LYTES,BUN,CREA,GLUC) on 09-01-2023 Anion gap [Moles/Vol] 14 mmol/L Normal 7-17 [facility] Comment on above: Performed By: #### Vale UNDERWOOD #### [facility] (DEFAULT) [address] [address] Chloride [Moles/Vol] 103 mmol/L Normal 98-108 [facility] Comment on above: Performed By: ###Walter UNDERWOOD #### [facility] (DEFAULT) [address] [address] CO2 [Moles/Vol] 21 mmol/L Normal 21-31 [facility] Comment on above: Performed By: ###Walter UNDERWOOD #### [facility] (DEFAULT) [address] [address] Creatinine [Mass/Vol] 1.16 mg/dL Normal 0.70-1.30 [facility] Comment on above: Performed By: ###Walter UNDERWOOD #### [facility] (DEFAULT) [address] [address] GFR/1.73 sq M.predicted among non-blacks MDRD (S/P/Bld) [Vol rate/Area] 76 mL/min/{1.73_m2} Normal >=60 [facility] Comment on above: Result Comment: Repo rted eGFR is based on the CKD-EPI 2020 equation using creatinine, age, and sex. Performed By: #### Vale UNDERWOOD #### [facility] (DEFAULT) [address] [place] [address] Glucose [Mass/Vol] 117 mg/dL High 70-99 [facility] Comment on above: Performed By: #### Vale UNDERWOOD #### [facility] (DEFAULT) [address] [place] [address] Osmolality [Osmolality] 285 mosm/kg Normal 278-305 [facility] Comment on above: Performed By: #### Vale UNDERWOOD #### [facility] (DEFAULT) [address] [place] [address] Potassium [Moles/Vol] 4.2 mmol/L Normal 3.5-5.0 [facility] Comment on above: Performed By: #### Vale UNDERWOOD #### [facility] (DEFAULT) [address] [place] [address] Sodium [Moles/Vol] 134 mmol/L Low 135-145 [facility] Comment on above: Performed By: ###Walter UNDERWOOD #### [facility] (DEFAULT) [address] [place] [address] Urea nitrogen [Mass/Vol] 18 mg/dL Normal 7-25 [facility] Comment on above: Performed By: ###Walter UNDERWOOD #### [facility] (DEFAULT) [address] [place] [address] Urea nitrogen/Creatinine [Mass ratio] 16 mg/mg Normal [facility] Comment on above: Performed By: ###Walter UNDERWOOD #### [facility] (DEFAULT) [address] [place] [address] Anion gap [Moles/Vol] 14 mmol/L 7 - 17 mmol/L [facility] Chloride [Moles/Vol] 103 mmol/L 98 - 10 8 mmol/L [facility] CO2 [Moles/Vol] 21 mmol/L 21 - 31 mmol/L [facility] Creatinine [Mass/Vol] 1.16 mg/dL 0.70 - 1.30 mg/dL [facility] eGFR, CKD-EPI, Male 76 [facility] Glucose [Mass/Vol] 117 mg/dL High 70 - 99 mg/dL [facility] Osmolality Calc [Osmolality] 285 [facility] Potassium [Moles/Vol] 4.2 mmol/L 3.5 - 5.0 mmol/L [facility] Sodium [Moles/Vol] 134 mmol/L Low 135 - 145 mmol/L [facility] Urea nitrogen [Mass/Vol] 18 mg/dL 7 - 25 mg/dL [facility] Urea nitrogen/Creatinine [Mass ratio] 16 mg/mg [facility] CRYPTOCOCCAL ANTIGENon 09-01 Cryptococcus Antigen,Serum Negative Normal Negative [facility] Comment on above: Performed By: #### H [facility] #### [facility] (DEFAULT) [address] [place] [address] Cryptococcus sp Ag Ql (S) Negative Negative [facility] Interpretation and review of laboratory results Normal [facility] HEPATIC FUNCTION PANELon Albumin [Mass/Vol] 3.3 g/dL Low 3.5-5.0 [facility] Comment on above: Performed By: #### C DOMENICA MEDLEY, HFP ####[facility] (DEFAULT)[address] [place] [address] ALP [Catalytic activity/Vol] 112 U/L Normal 32-126 [facility] Comment on above: Performed By: #### C DOMENICA MEDLEY, HFP ####[facility] (DEFAULT)[address] [place] [address] ALT [Catalytic activity/Vol] 21 U/L Normal 10-52 [facility] Comment on above: Performed By: #### C DOMENICA MEDLEY, HFP ####[facility] (DEFAULT)[address] [place] [address] AST [Catalytic activity/Vol] 29 U/L Normal 10-39 [facility] Comment on above: Performed By: #### C HM7, MGO, HFP ####[facility] (DEFAULT)[address] [place] [address] Bilirubin [Mass/Vol] 1.0 mg/dL Normal <1.5 [facility] Comment on above: Performed By: #### C HM7, MGO, HFP ####[facility] (DEFAULT)[address] [place] [address] Bilirubin.indirect [Mass/Vol] 0.2 mg/dL Normal <0.3 [facility] Comment on above: Performed By: #### C HM7, MGO, HFP ####[facility] (DEFAULT)[address] [place] [place] [address] Protein [Mass/Vol] 6.8 g/dL Normal 6.4-8.3 [facility] Comment on above: Performed By: #### C HM7, MGO, HFP ####[facility] (DEFAULT)[address] [place] [place] [address] Albumin [Mass/Vol] 3.3 g/dL Low 3.5 - 5.0 g/dL [facility] ALP [Catalytic activity/Vol] 112 U/L 32 - 126 U/L [facility] ALT [Catalytic activity/Vol] 21 U/L 10 - 52 U/L [facility] AST [Catalytic activity/Vol] 29 U/L 10 - 39 U/L [facility] Bilirubin [Mass/Vol] 1.0 mg/dL NINF - 1.5 mg/dL [facility] Bilirubin.direct [Mass/Vol] 0.2 mg/dL NINF - 0.3 mg/dL [facility] Protein [Mass/Vol] 6.8 g/dL 6.4 - 8.3 g/dL [facility] L. pneumophila 1 Ag IA Ql (U )Ordered By: Carolin Miles on 09-01-2023 Interpretation and review of laboratory results Normal [facility] LEGIONELLA URINARY AGOrdered By: Carolin Miles on 09-01-2023 L. pneumophila 1 Ag IA Ql (U) Negative Negative [facility] MAGNESIUMon 09-01-2023 Magnesium [Mass/Vol] 1.6 mg/dL Normal 1.6-2.6 [facility] Comment on above: Performed By: #### Vale UNDERWOOD #### [facility] (DEFAULT) [address] [address] Interpretation and review of laboratory results Normal [facility] Magnesium [Mass/Vol] 1.6 mg/dL 1.6 - 2 .6 mg/dL [facility] No Panel Informationon 09-01 Interpretation and review of laboratory results Abnormal [facility] PARVOVIRUS (B19) DNA, PCR, B LOODon 09-01-2023 PARVOVIRUS B19 BY RAPID PCR Not detected Normal Not Detected [facility] Comment on above: Result Comment: The primers/probe used in this assay will detect parvovirus B19 and V9 (genotypes 1 # 3) but may not detect parvovirus genotype 2. The majority of circulating Parvovirus B19 strains in the [place] are genotype 1. Genotype 2 is not believed to circulate widely in the [place], but has been associated with similar clinical features as genotype 1. Genotype 3 is most prevalent in some countries. This test was developed and its analytical performance characteristics have been determined by [facility], [place], [place]. It has not been cleared or approved by the FDA. This assay has been validated pursuant to the CLIA regulations and is used for clinical purposes. Test Performed at: [facility] [address] [place] [id number] Ramon Benavides M.D., Ph.D.,Director of Laboratories Performed By: #### Vale UNDERWOOD #### [facility] (DEFAULT) [address] [address] [address] ID SPEC SOURCE Whole Blood Normal [facility] Comment on above: Performed By: #### G YASMINE #### [facility] (DEFAULT) [address] [place] [address] ASPERGILLUS (GALACTOMANNAN), ANTIGENon 08-31-2023 Aspergillus Antigen <0.500 Normal <0.5 [facility] Comment on above: Result Comment: ADDITIONAL INFORMATION This is a qualitative test and the resulted index value is not indicative of disease severity. Serial testing is recommended for patients at high risk for invasive aspergillosis. This assay was performed using the FDA-cleared [employer] Aspergillus Galactomannan EIA. Test Performed by: [facility] [address] [place] [address] [employer]gen Plant Operator: Rosendo Bose M.D. Ph.D.; CLIA# [id number] Performed By: #### Y PNRP #### [facility] (DEFAULT) [address] [address] CBC,PLATELETSon 08-31-2023 Hematocrit (Bld) [Volume fraction] 39.4 % Low 39.6-48.8 [facility] Comment on above: Performed By: #### T ACRO #### [facility] (DEFAULT) [address] [address] Hemoglobin (Bld) [Mass/Vol] 12.8 g/dL Low 13.4-16.8 [facility] Comment on above: Performed By: #### T ACRO #### [facility] (DEFAULT) [address] [address] MCV (RBC) [Entitic vol] 85.1 fL Normal 79.0-94.5 [facility] Comment on above: Performed By: #### T ACRO #### [facility] (DEFAULT) [address] [address] Mean Cell Hgb 27.6 pg Normal 26.1-33.3 [facility] Comment on above: Performed By: #### T ACRO #### [facility] (DEFAULT) [address] [address] Mean Cell Hgb Conc 32.5 g/dL Normal 31.9-36.5 [facility] Comment on above: Performed By: #### T ACRO #### [facility] (DEFAULT) [address] [place] [address] Platelet mean volume (Bld) [Entitic vol] 9.6 fL Normal 8.7-12.3 [facility] Comment on above: Performed By: #### T ACRO #### [facility] (DEFAULT) [address] [place] [address] Platelets (Bld) [#/Vol] 228 10*3/uL Normal 146-337 [facility] Comment on above: Performed By: #### T ACRO #### [facility] (DEFAULT) [address] [place] [address] RBC (Bld) [#/Vol] 4.63 10*6/uL Normal 4.38-5.83 [facility] Comment on above: Performed By: #### T ACRO #### [facility] (DEFAULT) [address] [place] [address] RBC Distribution 13.3 % Normal 10.9-14.3 [facility] Comment on above: Performed By: #### T ACRO #### [facility] (DEFAULT) [address] [place] [address] WBC (Bld) [#/Vol] 4.77 10*3/uL Normal 3.73-10.10 [facility] Comment on above: Performed By: #### T ACRO #### [facility] (DEFAULT) [address] [place] [address] Erythrocyte distribution width (RBC) [Ratio] 13.3 % 10.9 - 14.3 % [facility] Hematocrit (Bld) [Volume fraction] 39.4 % Low 39.6 - 48.8 % [facility] Hemoglobin (Bld) [Mass/Vol] 12.8 g/dL Low 13.4 - 16.8 g/dL [facility] Interpretation and review of laboratory results Abnormal [facility] MCH (RBC) [Entitic mass] 27.6 pg 26.1 - 33.3 pg [facility] MCHC (RBC) [Mass/Vol] 32.5 g/dL 31.9 - 36.5 g/dL [facility] MCV (RBC) [Entitic vol] 85.1 fL 79.0 - 94.5 fL [facility] Platelet mean volume (Bld) [Entitic vol] 9.6 fL 8.7 - 12.3 fL [facility] Platelets (Bld) [#/Vol] 228 10*3/uL 146 - 337 K/uL [facility] RBC (Bld) [#/Vol] 4.63 10*6/uL [facility] WBC (Bld) [#/Vol] 4.77 10*3/uL 3.73 - 10. 10 K/uL [facility] CHEM 7 (LYTES,BUN,CREA,GLUC) on 08-31-2023 Anion gap [Moles/Vol] 13 mmol/L Normal 7-17 [facility] Comment on above: Performed By: #### T ACRO #### [facility] (DEFAULT) [address] [address] Chloride [Moles/Vol] 102 mmol/L Normal 98-108 [facility] Comment on above: Performed By: #### T ACRO #### [facility] (DEFAULT) [address] [address] CO2 [Moles/Vol] 23 mmol/L Normal 21-31 [facility] Comment on above: Performed By: #### T ACRO #### [facility] (DEFAULT) [address] [address] Creatinine [Mass/Vol] 1.37 mg/dL High 0.70-1.30 [facility] Comment on above: Performed By: #### T ACRO #### [facility] (DEFAULT) [address] [address] GFR/1.73 sq M.predicted among non-blacks MDRD (S/P/Bld) [Vol rate/Area] 62 mL/min/{1.73_m2} Normal >=60 [facility] Comment on above: Result Comment: Repo rted eGFR is based on the CKD-EPI 2020 equation using creatinine, age, and sex. Performed By: #### T ACRO #### [facility] (DEFAULT) [address] [place] [address] Glucose [Mass/Vol] 112 mg/dL High 70-99 [facility] Comment on above: Performed By: #### T ACRO #### [facility] (DEFAULT) [address] [place] [address] Osmolality [Osmolality] 284 mosm/kg Normal 278-305 [facility] Comment on above: Performed By: #### T ACRO #### [facility] (DEFAULT) [address] [place] [address] Potassium [Moles/Vol] 4.4 mmol/L Normal 3.5-5.0 [facility] Comment on above: Performed By: #### T ACRO #### [facility] (DEFAULT) [address] [place] [address] Sodium [Moles/Vol] 134 mmol/L Low 135-145 [facility] Comment on above: Performed By: #### T ACRO #### [facility] (DEFAULT) [address] [place] [address] Urea nitrogen [Mass/Vol] 16 mg/dL Normal 7-25 [facility] Comment on above: Performed By: #### T ACRO #### [facility] (DEFAULT) [address] [place] [address] Urea nitrogen/Creatinine [Mass ratio] 12 mg/mg Normal [facility] Comment on above: Performed By: #### T ACRO #### [facility] (DEFAULT) [address] [place] [address] Anion gap [Moles/Vol] 13 mmol/L 7 - 17 mmol/L [facility] Chloride [Moles/Vol] 102 mmol/L 98 - 10 8 mmol/L [facility] CO2 [Moles/Vol] 23 mmol/L 21 - 31 mmol/L [facility] Creatinine [Mass/Vol] 1.37 mg/dL High 0.70 - 1.30 mg/dL [facility] eGFR, CKD-EPI, Male 62 - PINF [facility] Glucose [Mass/Vol] 112 mg/dL High 70 - 99 mg/dL [facility] Osmolality Calc [Osmolality] 284 [facility] Potassium [Moles/Vol] 4.4 mmol/L 3.5 - 5.0 mmol/L [facility] Sodium [Moles/Vol] 134 mmol/L Low 135 - 145 [facility] Urea nitrogen [Mass/Vol] 16 mg/dL 7 - 25 mg/dL [facility] Urea nitrogen/Creatinine [Mass ratio] 12 mg[facility] ABDOMEN/PELVIS WITHOUT CO [...] Adrenals: Adrenal glands are unremarkable. Kidneys: The [place] kidneys are atrophic. No stones or hydronephrosis. No focal lesions noted within the [place] kidneys on this noncontrast study. Renovascular calcifications [...] have reviewed and approved this report. Normal [facility] CT Abdomen and Pelvis WO con traston 08-31-2023 RADIOLOGY RADIOLOGY [facility] Radiology Study observation (narrative) [facility] CT Abdomen and Pelvis WO con trastOrdered By: Chavez Larkin on 08-31-2023 [facility] Work Phone: CT CHEST WITHOUT CONTRASTon [...] likely reactive. 4. Coronary artery disease. Normal [facility] CT Chest WO contraston 08-31 RADIOLOGY RADIOLOGY [facility] Radiology Study observation (narrative) [facility] CT Chest WO contrastOrdered By: Daisha Patterson on 08-31-2023 [facility] Work Phone: FERRITINon 08-31-2023 Ferritin [Mass/Vol] 409.0 ng/mL High 10.5 - 3 07.3 ng/mL [facility] Interpretation and review of laboratory results Abnormal [facility] Ferritin [Mass/Vol] 409.0 ng/mL High 10.5-307.3 [facility] Comment on above: Performed By: #### T ACRO #### [facility] (DEFAULT) [address] [address] HEPATIC FUNCTION PANELon Albumin [Mass/Vol] 3.3 g/dL Low 3.5-5.0 [facility] Comment on above: Performed By: #### T ACRO #### [facility] (DEFAULT) [address] [address] ALP [Catalytic activity/Vol] 113 U/L Normal 32-126 [facility] Comment on above: Performed By: #### T ACRO #### [facility] (DEFAULT) [address] [place] [address] ALT [Catalytic activity/Vol] 25 U/L Normal 10-52 [facility] Comment on above: Performed By: #### T ACRO #### [facility] (DEFAULT) [address] [place] [address] AST [Catalytic activity/Vol] 31 U/L Normal 10-39 [facility] Comment on above: Performed By: #### T ACRO #### [facility] (DEFAULT) [address] [place] [address] Bilirubin [Mass/Vol] 1.1 mg/dL Normal <1.5 [facility] Comment on above: Performed By: #### T ACRO #### [facility] (DEFAULT) [address] [place] [address] Bilirubin.indirect [Mass/Vol] 0.3 mg/dL High <0.3 [facility] Comment on above: Performed By: #### T ACRO #### [facility] (DEFAULT) [address] [place] [address] Protein [Mass/Vol] 7.0 g/dL Normal 6.4-8.3 [facility] Comment on above: Performed By: #### T ACRO #### [facility] (DEFAULT) [address] [place] [address] Albumin [Mass/Vol] 3.3 g/dL Low 3.5 - 5.0 g/dL [facility] ALP [Catalytic activity/Vol] 113 U/L 32 - 126 U/L [facility] ALT [Catalytic activity/Vol] 25 U/L 10 - 52 U/L [facility] AST [Catalytic activity/Vol] 31 U/L 10 - 39 U/L [facility] Bilirubin [Mass/Vol] 1.1 mg/dL NINF - 1.5 mg/dL [facility] Bilirubin.direct [Mass/Vol] 0.3 mg/dL High NINF - 0.3 mg/dL [facility] Protein [Mass/Vol] 7.0 g/dL 6.4 - 8.3 g/dL [facility] LEGIONELLA URINARY AGon 10-0 Legionella Urinary Antigen Negative Normal Negative [facility] Comment on above: Performed By: #### T ACRO #### [facility] (DEFAULT) [address] [address] MAGNESIUMon 08-31-2023 Magnesium [Mass/Vol] 1.7 mg/dL Normal 1.6-2.6 [facility] Comment on above: Performed By: #### T ACRO #### [facility] (DEFAULT) [address] [address] Interpretation and review of laboratory results Normal [facility] Magnesium [Mass/Vol] 1.7 mg/dL 1.6 - 2 .6 mg/dL [facility] No Panel Informationon 08-31 Interpretation and review of laboratory results Abnormal [facility] PROCALCITONINon 08-31-2023 Interpretation and review of laboratory results Normal [facility] Procalcitonin [Mass/Vol] 0.23 ng/mL NINF - 0.50 ng/mL [facility] Procalcitonin 0.23 ng/mL Normal <0.50 [facility] Comment on above: Result Comment: Proc alcitonin [...] and trend procalcitonin in various clinical settings. [email or web address].[email or web address]/departments/Pharmacy/_[email or web address]/Wop iFrame.aspx?sourcedoc=/departments/Pharmacy/Documents/GDLProcalc itonin.docx&action=default&DefaultItemOpen=1 Two common cutoffs associated with bacterial infections are as follows. Respiratory tract infections: >0.25 ng/mL Sepsis/septic shock: >0.5 ng/mL Procalcitonin should not be used alone as a diagnostic tool, however. All procalcitonin results should be interpreted in association with the patients clinical condition and all laboratory findings. Performed By: #### T ACRO #### [facility] (DEFAULT) [address] [place] [address] TACROLIMUS LEVEL, TROUGH (ID E DRUG LEVEL)Ordered By: Yanira Marcum on 08-31-2023 Interpretation and review of laboratory results Normal [facility] Tacrolimus (Bld) [Mass/Vol] 5.9 ng/mL [facility] [place] TACROLIMUS LEVEL, TROUGH (ID E DRUG LEVEL)on 08-31-2023 Tacrolimus, Trough 5.9 ng/mL Normal Bone Susana ow Transplant: 4.0-12.0, Therapeutic: 5.0-15.0 [facility] Comment on above: Order Comment: Pleas e draw at specified interval PRIOR to dose. Do not hold dose to wait for level. Specimens batched twice per day, (M-F) and once per day weekendsMethod performed is a chemiluminescent microparticle immunoasssay on the [employer] i2000.The range is based on experience at [facility] and users should be aware that target concentrations vary widely depending on concomitant therapy, time post-transplant, and desired degree of immunosuppression. Performed By: #### T ACRO ####[facility] (DEFAULT)[address] [place] [address] URINE CULTUREOrdered By: Jorge Lozano on 08-31-2023 Bacteria identified Cx Nom (Unsp spec) No Growth [facility] DARYL AURIS SCREEN BY PCRO rdered By: Mynor Alejandro on 08-30-2023 Daryl auris Screen by PCR Not detected Not Detected [facility] Interpretation and review of laboratory results Normal [facility] [place] CBC,PLATELETSon 08-30-2023 Hematocrit (Bld) [Volume fraction] 41.3 % Normal 39.6-48.8 [facility] Comment on above: Performed By: #### Vale UNDERWOOD #### [facility] (DEFAULT) [address] [address] Hemoglobin (Bld) [Mass/Vol] 13.2 g/dL Low 13.4-16.8 [facility] Comment on above: Performed By: #### Vale UNDERWOOD #### [facility] (DEFAULT) [address] [place] [address] MCV (RBC) [Entitic vol] 85.5 fL Normal 79.0-94.5 [facility] Comment on above: Performed By: #### Vale UNDERWOOD #### [facility] (DEFAULT) [address] [place] [address] Mean Cell Hgb 27.3 pg Normal 26.1-33.3 [facility] Comment on above: Performed By: #### Vale UNDERWOOD #### [facility] (DEFAULT) [address] [place] [address] Mean Cell Hgb Conc 32.0 g/dL Normal 31.9-36.5 [facility] Comment on above: Performed By: #### Vale UNDERWOOD #### [facility] (DEFAULT) [address] [place] [address] Platelet mean volume (Bld) [Entitic vol] 9.2 fL Normal 8.7-12.3 [facility] Comment on above: Performed By: #### Vale UNDERWOOD #### [facility] (DEFAULT) [address] [place] [address] Platelets (Bld) [#/Vol] 235 10*3/uL Normal 146-337 [facility] Comment on above: Performed By: ###Walter UNDERWOOD #### [facility] (DEFAULT) [address] [place] [address] RBC (Bld) [#/Vol] 4.83 10*6/uL Normal 4.38-5.83 [facility] Comment on above: Performed By: #### G YASMINE #### [facility] (DEFAULT) [address] [place] [address] RBC Distribution 13.3 % Normal 10.9-14.3 [facility] Comment on above: Performed By: #### G YASMINE #### [facility] (DEFAULT) [address] [place] [address] WBC (Bld) [#/Vol] 4.96 10*3/uL Normal 3.73-10.10 [facility] Comment on above: Performed By: #### G YASMINE #### [facility] (DEFAULT) [address] [place] [address] Erythrocyte distribution width (RBC) [Ratio] 13.3 % 10.9 - 14.3 % [facility] Hematocrit (Bld) [Volume fraction] 41.3 % 39.6 - 48.8 % [facility] Hemoglobin (Bld) [Mass/Vol] 13.2 g/dL Low 13.4 - 16.8 g/dL [facility] Interpretation and review of laboratory results Abnormal [facility] MCH (RBC) [Entitic mass] 27.3 pg 26.1 - 33.3 pg [facility] MCHC (RBC) [Mass/Vol] 32.0 g/dL 31.9 - 36.5 g/dL [facility] MCV (RBC) [Entitic vol] 85.5 fL 79.0 - 94.5 fL [facility] Platelet mean volume (Bld) [Entitic vol] 9.2 fL 8.7 - 12.3 fL [facility] Platelets (Bld) [#/Vol] 235 10*3/uL 146 - 337 K/uL [facility] RBC (Bld) [#/Vol] 4.83 10*6/uL [facility] WBC (Bld) [#/Vol] 4.96 10*3/uL 3.73 - 10. 10 K/uL [facility] CHEM 7 (LYTES,BUN,CREA,GLUC) on 08-30-2023 Anion gap [Moles/Vol] 14 mmol/L Normal 7-17 [facility] Comment on above: Performed By: #### T ACRO #### [facility] (DEFAULT) [address] [place] [address] Chloride [Moles/Vol] 102 mmol/L Normal 98-108 [facility] Comment on above: Performed By: #### T ACRO #### [facility] (DEFAULT) [address] [place] [address] CO2 [Moles/Vol] 20 mmol/L Low 21-31 [facility] Comment on above: Performed By: #### T ACRO #### [facility] (DEFAULT) [address] [place] [address] Creatinine [Mass/Vol] 1.56 mg/dL High 0.70-1.30 [facility] Comment on above: Performed By: #### T ACRO #### [facility] (DEFAULT) [address] [place] [address] GFR/1.73 sq M.predicted among non-blacks MDRD (S/P/Bld) [Vol rate/Area] 53 mL/min/{1.73_m2} Low >=60 [facility] Comment on above: Result Comment: Repo rted eGFR is based on the CKD-EPI 2020 equation using creatinine, age, and sex. Performed By: #### T ACRO #### [facility] (DEFAULT) [address] [place] [address] Glucose [Mass/Vol] 123 mg/dL High 70-99 [facility] Comment on above: Performed By: #### T ACRO #### [facility] (DEFAULT) [address] [place] [address] Osmolality [Osmolality] 281 mosm/kg Normal 278-305 [facility] Comment on above: Performed By: #### T ACRO #### [facility] (DEFAULT) [address] [place] [address] Potassium [Moles/Vol] 4.3 mmol/L Normal 3.5-5.0 [facility] Comment on above: Performed By: #### T ACRO #### [facility] (DEFAULT) [address] [place] [address] Sodium [Moles/Vol] 132 mmol/L Low 135-145 [facility] Comment on above: Performed By: #### T ACRO #### [facility] (DEFAULT) [address] [place] [address] Urea nitrogen [Mass/Vol] 16 mg/dL Normal 7-25 [facility] Comment on above: Performed By: #### T ACRO #### [facility] (DEFAULT) [address] [place] [address] Urea nitrogen/Creatinine [Mass ratio] 10 mg/mg Normal [facility] Comment on above: Performed By: #### T ACRO #### [facility] (DEFAULT) [address] [place] [address] Anion gap [Moles/Vol] 14 mmol/L 7 - 17 mmol/L [facility] Chloride [Moles/Vol] 102 mmol/L 98 - 10 8 mmol/L [facility] CO2 [Moles/Vol] 20 mmol/L Low 21 - 31 mmol/L [facility] Creatinine [Mass/Vol] 1.56 mg/dL High 0.70 - 1.30 mg/dL [facility] eGFR, CKD-EPI, Male 53 Low - PINF [facility] Glucose [Mass/Vol] 123 mg/dL High 70 - 99 mg/dL [facility] Osmolality Calc [Osmolality] 281 [facility] Potassium [Moles/Vol] 4.3 mmol/L 3.5 - 5.0 mmol/L [facility] Sodium [Moles/Vol] 132 mmol/L Low 135 - 145 mmol/L [facility] Urea nitrogen [Mass/Vol] 16 mg/dL 7 - 25 mg/dL [facility] Urea nitrogen/Creatinine [Mass ratio] 10 mg/mg [facility] EXTRA MICROon 08-30-2023 [facility] HEPATIC FUNCTION PANELon Albumin [Mass/Vol] 3.7 g/dL Normal 3.5-5.0 [facility] Comment on above: Performed By: #### T ACRO #### [facility] (DEFAULT) [address] [place] [address] ALP [Catalytic activity/Vol] 115 U/L Normal 32-126 [facility] Comment on above: Performed By: #### T ACRO #### [facility] (DEFAULT) [address] [place] [address] ALT [Catalytic activity/Vol] 22 U/L Normal 10-52 [facility] Comment on above: Performed By: #### T ACRO #### [facility] (DEFAULT) [address] [place] [address] AST [Catalytic activity/Vol] 34 U/L Normal 10-39 [facility] Comment on above: Performed By: #### T ACRO #### [facility] (DEFAULT) [address] [place] [address] Bilirubin [Mass/Vol] 1.2 mg/dL Normal <1.5 [facility] Comment on above: Performed By: #### T ACRO #### [facility] (DEFAULT) [address] [place] [address] Bilirubin.indirect [Mass/Vol] 0.3 mg/dL High <0.3 [facility] Comment on above: Performed By: #### T ACRO #### [facility] (DEFAULT) [address] [place] [address] Protein [Mass/Vol] 7.7 g/dL Normal 6.4-8.3 [facility] Comment on above: Performed By: #### T ACRO #### [facility] (DEFAULT) [address] [place] [address] Albumin [Mass/Vol] 3.7 g/dL 3.5 - 5.0 g/dL [facility] ALP [Catalytic activity/Vol] 115 U/L 32 - 126 U/L [facility] ALT [Catalytic activity/Vol] 22 U/L 10 - 52 U/L [facility] AST [Catalytic activity/Vol] 34 U/L 10 - 39 U/L [facility] Bilirubin [Mass/Vol] 1.2 mg/dL NINF - 1.5 mg/dL [facility] Bilirubin.direct [Mass/Vol] 0.3 mg/dL High NINF - 0.3 mg/dL [facility] Protein [Mass/Vol] 7.7 g/dL 6.4 - 8.3 g/dL [facility] MAGNESIUMon 08-30-2023 Magnesium [Mass/Vol] 1.8 mg/dL Normal 1.6-2.6 [facility] Comment on above: Performed By: #### T ACRO #### [facility] (DEFAULT) [address] [place] [address] Interpretation and review of laboratory results Normal [facility] Magnesium [Mass/Vol] 1.8 mg/dL 1.6 - 2 .6 mg/dL [facility] No Panel Informationon 08-30 Interpretation and review of laboratory results Abnormal [facility] CBC,PLATELETSon 08-29-2023 Hematocrit (Bld) [Volume fraction] 37.6 % Low 39.6-48.8 [facility] Comment on above: Performed By: #### H EMOGC #### [facility] (DEFAULT) [address] [place] [address] Hemoglobin (Bld) [Mass/Vol] 12.2 g/dL Low 13.4-16.8 [facility] Comment on above: Performed By: #### H EMOGC #### [facility] (DEFAULT) [address] [place] [address] MCV (RBC) [Entitic vol] 85.1 fL Normal 79.0-94.5 [facility] Comment on above: Performed By: #### H EMOGC #### [facility] (DEFAULT) [address] [address] Mean Cell Hgb 27.6 pg Normal 26.1-33.3 [facility] Comment on above: Performed By: #### H EMOGC #### [facility] (DEFAULT) [address] [address] Mean Cell Hgb Conc 32.4 g/dL Normal 31.9-36.5 [facility] Comment on above: Performed By: #### H EMOGC #### [facility] (DEFAULT) [address] [address] Platelet mean volume (Bld) [Entitic vol] 9.4 fL Normal 8.7-12.3 [facility] Comment on above: Performed By: #### H EMOGC #### [facility] [facility] ([facility] [address] [address] Platelets (Bld) [#/Vol] 233 10*3/uL Normal 146-337 [facility] Comment on above: Performed By: #### H EMOGC #### [facility] (DEFAULT) [address] [address] RBC (Bld) [#/Vol] 4.42 10*6/uL Normal 4.38-5.83 [facility] Comment on above: Performed By: #### H EMOGC #### [facility] (DEFAULT) [address] [address] RBC Distribution 13.4 % Normal 10.9-14.3 [facility] Comment on above: Performed By: #### H EMOGC #### [facility] (DEFAULT) [address] [address] WBC (Bld) [#/Vol] 4.92 10*3/uL Normal 3.73-10.10 [facility] Comment on above: Performed By: ###Walter Freeman [facility] #### [facility] (DEFAULT) [address] [place] [address] Erythrocyte distribution width (RBC) [Ratio] 13.4 % 10.9 - 14.3 % [facility] Hematocrit (Bld) [Volume fraction] 37.6 % Low 39.6 - 48.8 % [facility] Hemoglobin (Bld) [Mass/Vol] 12.2 g/dL Low 13.4 - 16.8 g/dL [facility] Interpretation and review of laboratory results Abnormal [facility] MCH (RBC) [Entitic mass] 27.6 pg 26.1 - 33.3 pg [facility] MCHC (RBC) [Mass/Vol] 32.4 g/dL 31.9 - 36.5 g/dL [facility] MCV (RBC) [Entitic vol] 85.1 fL 79.0 - 94.5 fL [facility] Platelet mean volume (Bld) [Entitic vol] 9.4 fL 8.7 - 12.3 fL [facility] Platelets (Bld) [#/Vol] 233 10*3/uL 146 - 337 K/uL [facility] RBC (Bld) [#/Vol] 4.42 10*6/uL [facility] WBC (Bld) [#/Vol] 4.92 10*3/uL 3.73 - 10. 10 K/uL [facility] CHEM 7 (LYTES,BUN,CREA,GLUC) on 08-29-2023 Anion gap [Moles/Vol] 13 mmol/L Normal 7-17 [facility] Comment on above: Performed By: ###Walter UNDERWOOD #### [facility] (DEFAULT) [address] [place] [address] Chloride [Moles/Vol] 105 mmol/L Normal 98-108 [facility] Comment on above: Performed By: ###Walter UNDERWOOD #### [facility] (DEFAULT) [address] [place] [address] CO2 [Moles/Vol] 20 mmol/L Low 21-31 [facility] Comment on above: Performed By: ###Walter UNDERWOOD #### [facility] (DEFAULT) [address] [place] [address] Creatinine [Mass/Vol] 1.55 mg/dL High 0.70-1.30 [facility] Comment on above: Performed By: #### Vale UNDERWOOD #### [facility] (DEFAULT) [address] [place] [address] GFR/1.73 sq M.predicted among non-blacks MDRD (S/P/Bld) [Vol rate/Area] 54 mL/min/{1.73_m2} Low >=60 [facility] Comment on above: Result Comment: Repo rted eGFR is based on the CKD-EPI 2020 equation using creatinine, age, and sex. Performed By: ###Walter UNDERWOOD #### [facility] (DEFAULT) [address] [place] [address] Glucose [Mass/Vol] 108 mg/dL High 70-99 [facility] Comment on above: Performed By: ###Walter UNDERWOOD #### [facility] (DEFAULT) [address] [place] [address] Osmolality [Osmolality] 283 mosm/kg Normal 278-305 [facility] Comment on above: Performed By: ###Walter UNDERWOOD #### [facility] (DEFAULT) [address] [place] [address] Potassium [Moles/Vol] 4.5 mmol/L Normal 3.5-5.0 [facility] Comment on above: Performed By: ###Walter UNDERWOOD #### [facility] (DEFAULT) [address] [place] [address] Sodium [Moles/Vol] 133 mmol/L Low 135-145 [facility] Comment on above: Performed By: ###Walter UNDERWOOD #### [facility] (DEFAULT) [address] [place] [address] Urea nitrogen [Mass/Vol] 19 mg/dL Normal 7-25 [facility] Comment on above: Performed By: ###Walter UNDERWOOD #### [facility] (DEFAULT) [address] [place] [address] Urea nitrogen/Creatinine [Mass ratio] 12 mg/mg Normal [facility] Comment on above: Performed By: ###Walter UNDERWOOD #### [facility] (DEFAULT) [address] [place] [address] Anion gap [Moles/Vol] 13 mmol/L 7 - 17 mmol/L [facility] Chloride [Moles/Vol] 105 mmol/L 98 - 10 8 mmol/L [facility] CO2 [Moles/Vol] 20 mmol/L Low 21 - 31 mmol/L [facility] Creatinine [Mass/Vol] 1.55 mg/dL High 0.70 - 1.30 mg/dL [facility] eGFR, CKD-EPI, Male 55 Low - PINF [facility] Glucose [Mass/Vol] 108 mg/dL High 70 - 99 mg/dL [facility] Osmolality Calc [Osmolality] 283 [facility] Potassium [Moles/Vol] 4.5 mmol/L 3.5 - 5.0 mmol/L [facility] Sodium [Moles/Vol] 133 mmol/L Low 135 - 145 mmol/L [facility] Urea nitrogen [Mass/Vol] 19 mg/dL 7 - 25 mg/dL [facility] Urea nitrogen/Creatinine [Mass ratio] 12 mg/mg [facility] GGTon 08-29-2023 Gamma glutamyl transferase [Catalytic activity/Vol] 64 U/L 8 - 64 U/L [facility] Interpretation and review of laboratory results Normal [facility] Gamma glutamyl transferase [Catalytic activity/Vol] 64 U/L Normal 8-64 [facility] Comment on above: Performed By: ###Walter UNDERWOOD #### [facility] (DEFAULT) [address] [place] [address] HEPATIC FUNCTION PANELon Albumin [Mass/Vol] 3.3 g/dL Low 3.5-5.0 [facility] Comment on above: Performed By: #### Vale UNDERWOOD #### [facility] (DEFAULT) [address] [place] [address] ALP [Catalytic activity/Vol] 103 U/L Normal 32-126 [facility] Comment on above: Performed By: #### Vale UNDERWOOD #### [facility] (DEFAULT) [address] [place] [address] ALT [Catalytic activity/Vol] 18 U/L Normal 10-52 [facility] Comment on above: Performed By: #### Vale UNDERWOOD #### [facility] (DEFAULT) [address] [place] [address] AST [Catalytic activity/Vol] 27 U/L Normal 10-39 [facility] Comment on above: Performed By: #### Vale UNDERWOOD #### [facility] (DEFAULT) [address] [place] [address] Bilirubin [Mass/Vol] 1.1 mg/dL Normal <1.5 [facility] Comment on above: Performed By: #### Vale UNDERWOOD #### [facility] (DEFAULT) [address] [place] [address] Bilirubin.indirect [Mass/Vol] 0.3 mg/dL High <0.3 [facility] Comment on above: Performed By: #### Vale UNDERWOOD #### [facility] (DEFAULT) [address] [place] [address] Protein [Mass/Vol] 6.8 g/dL Normal 6.4-8.3 [facility] Comment on above: Performed By: #### Vale ASAASHISH #### [facility] (DEFAULT) [address] [place] [address] Albumin [Mass/Vol] 3.3 g/dL Low 3.5 - 5.0 g/dL [facility] ALP [Catalytic activity/Vol] 103 U/L 32 - 126 U/L [facility] ALT [Catalytic activity/Vol] 18 U/L 10 - 52 U/L [facility] AST [Catalytic activity/Vol] 27 U/L 10 - 39 U/L [facility] Bilirubin [Mass/Vol] 1.1 mg/dL [facility] 1.[facility] mg/dL [facility] Bilirubin.direct [Mass/Vol] 0.3 mg/dL High NINF - 0.3 mg/dL [facility] Protein [Mass/Vol] 6.8 g/dL 6.4 - 8.3 g/dL [facility] HISTOPLASMA AND BLASTOMYCES ANTIGEN, ENZYME IMMUNOASSAY, SERMon 08-29-2023 Histoplasma/Blastomyc es Ag Result Detected Invalid Interpretation Code Not Detected [facility] Comment on above: Result Comment: Anti gen from Histoplasma or Blastomyces (unable to differentiate) detected. Result should be correlated with clinical presentation, exposure history, and other diagnostic procedures, including culture, serology, histopathology, and/or radiographic findings, to aid in the differentiation between histoplasmosis and blastomycosis. CRITICAL RESULT Performed By: #### Y PNRP #### [facility] (DEFAULT) [address] [place] [address] Histoplasma/Blastomyc es Ag Value 5.3 ng/mL Normal [facility] Comment on above: Result Comment: ADDITIONAL INFORMATION This test was developed and its performance characteristics determined by [facility] in a manner consistent with CLIA requirements. This test has not been cleared or approved by the U.S. Food and Drug Administration. Test Performed by: [facility] - [address] [address] Hydrogen Plant Operator: Rosendo Bose M.D. Ph.D.; CLIA# [id number] Performed By: #### Y PNRP #### [facility] (DEFAULT) [address] [place] [address] HISTOPLASMA ANTIGEN,URINEon 08-29-2023 HISTOPLASM AG, URINE Not detected Normal Not Detected [facility] Comment on above: Result Comment: No H istoplasma antigen detected. False negative results may occur. Repeat testing on a new specimen should be considered if clinically indicated. Performed By: #### T ACRO #### [facility] (DEFAULT) [address] [address] Histoplasma Ag Value Not detected Normal [facility] Comment on above: Result Comment: ADDITIONAL INFORMATION This test has been modified from the agile java developer's instructions. Its performance characteristics were determined by [facility] in a manner consistent with CLIA requirements. This test has not been cleared or approved by the U.S. Food and Drug Administration. Test Performed by: [place] [address] Hydrogen Plant Operator: Rosendo Bose M.D. Ph.D.; CLIA# [id number] Performed By: #### T ACRO #### [facility] (DEFAULT) [address] [address] MAGNESIUMon 08-29-2023 Magnesium [Mass/Vol] 1.7 mg/dL Normal 1.6-2.6 [facility] Comment on above: Performed By: #### G YASMINE #### [facility] (DEFAULT) [address] [address] Interpretation and review of laboratory results Normal [facility] Magnesium [Mass/Vol] 1.7 mg/dL 1.6 - 2 .6 mg/dL [facility] No Panel Informationon 08-29 Interpretation and review of laboratory results Abnormal [facility] PT,INR,PTTon 08-29-2023 aPTT Coag (Bld) [Time] 29.3 s Normal 24.0-34.3 [facility] Comment on above: Performed By: #### L EGN #### [facility] (DEFAULT) [address] [place] [address] INR Coag (PPP) [Relative time] 1.1 {INR} Normal 0.9-1.1 [facility] Comment on above: Performed By: #### L EGN #### [facility] (DEFAULT) [address] [place] [address] PT Coag (PPP) [Time] 13.8 s Normal 11.9-14.2 [facility] Comment on above: Performed By: #### L EGN #### [facility] (DEFAULT) [address] [place] [address] aPTT Coag (PPP) [Time] 29.3 s [facility] INR Coag (Bld) [Relative time] 1.1 {INR} 0.9 - 1.1 [facility] Interpretation and review of laboratory results Normal [facility] PT Coag (PPP) [Time] 13.8 s [facility] Portable XR Chest Viewson RADIOLOGY RADIOLOGY [facility] Portable XR Chest ViewsOrder ed By: Gerald Baer on 08-29-2023 [facility] Work Phone: TACROLIMUS LEVEL, TROUGH (ID E DRUG LEVEL)on 08-29-2023 Interpretation and review of laboratory results Normal [facility] Tacrolimus (Bld) [Mass/Vol] 8.9 ng/mL [facility] [place] Tacrolimus, Trough 8.9 ng/mL Normal Bone Susana ow Transplant: 4.0-12.0, Therapeutic: 5.0-15.0 [facility] Comment on above: Order Comment: Pleas e draw at specified interval PRIOR to dose. Do not hold dose to wait for level. Specimens batched twice per day, (M-F) and once per day weekendsMethod performed is a chemiluminescent microparticle immunoasssay on the [employer] i2000.The range is based on experience at [facility] and users should be aware that target concentrations vary widely depending on concomitant therapy, time post-transplant, and desired degree of immunosuppression. Performed By: #### H [facility] #### [facility] (DEFAULT) [address] [place] [address] Tacrolimus, Trough 8.7 ng/mL Normal [facility] Susana ow Transplant: 4.0-12.0, Therapeutic: 5.0-15.0 [facility] Comment on above: Order Comment: Pleas e draw at specified interval PRIOR to dose. Do not hold dose to wait for level. Specimens batched twice per day, (M-F) and once per day weekends Method performed is a chemiluminescent microparticle immunoasssay on the [employer] i2000. The range is based on experience at [facility] and users should be aware that target concentrations vary widely depending on concomitant therapy, time post-transplant, and desired degree of immunosuppression. Performed By: #### T ACRO #### [facility] (DEFAULT) [address] [place] [address] TACROLIMUS LEVEL, TROUGH (ID E DRUG LEVEL)Ordered By: Roxanne Louie on 08-29-2023 Interpretation and review of laboratory results Normal [facility] Tacrolimus (Bld) [Mass/Vol] 8.7 ng/mL [facility] [place] URINALYSIS REFLEX TO CULTURE PERFORMABLEon 08-29-2023 Appearance (U) Clear Normal Clear [facility] Comment on above: Order Comment: Pleas e draw at specified interval PRIOR to dose. Do not hold dose to wait for level. Specimens batched twice per day, (M-F) and once per day weekends Method performed is a chemiluminescent microparticle immunoasssay on the [employer] i2000. The range is based on experience at [facility] and users should be aware that target concentrations vary widely depending on concomitant therapy, time post-transplant, and desired degree of immunosuppression. Performed By: #### T ACRO #### [facility] (DEFAULT) [address] [place] [address] Bacteria ABSENT Normal ABSENT [facility] Comment on above: Order Comment: Pleas e draw at specified interval PRIOR to dose. Do not hold dose to wait for level. Specimens batched twice per day, (M-F) and once per day weekends Method performed is a chemiluminescent microparticle immunoasssay on the [employer] i2000. The range is based on experience at [facility] and users should be aware that target concentrations vary widely depending on concomitant therapy, time post-transplant, and desired degree of immunosuppression. Performed By: #### T ACRO #### [facility] (DEFAULT) [address] [place] [address] Blood Urine Trace Abnormal Negative [facility] Comment on above: Order Comment: Pleas e draw at specified interval PRIOR to dose. Do not hold dose to wait for level. Specimens batched twice per day, (M-F) and once per day weekends Method performed is a chemiluminescent microparticle immunoasssay on the [employer] i2000. The range is based on experience at [facility] and users should be aware that target concentrations vary widely depending on concomitant therapy, time post-transplant, and desired degree of immunosuppression. Performed By: #### T ACRO #### [facility] (DEFAULT) [address] [place] [address] Calcium Oxalate Crystals PRESENT Normal [facility] Comment on above: Order Comment: Pleas e draw at specified interval PRIOR to dose. Do not hold dose to wait for level. Specimens batched twice per day, (M-F) and once per day weekends Method performed is a chemiluminescent microparticle immunoasssay on the [employer] i2000. The range is based on experience at [facility] and users should be aware that target concentrations vary widely depending on concomitant therapy, time post-transplant, and desired degree of immunosuppression. Performed By: #### T ACRO #### [facility] (DEFAULT) [address] [place] [address] Color (U) Yellow Normal Yellow [facility] Comment on above: Order Comment: Pleas e draw at specified interval PRIOR to dose. Do not hold dose to wait for level. Specimens batched twice per day, (M-F) and once per day weekends Method performed is a chemiluminescent microparticle immunoasssay on the [employer] i2000. The range is based on experience at [facility] and users should be aware that target concentrations vary widely depending on concomitant therapy, time post-transplant, and desired degree of immunosuppression. Performed By: #### T ACRO #### [facility] [address] [address] Glucose Ql (U) Negative Normal Negative [facility] Comment on above: Order Comment: Pleas e draw at specified interval PRIOR to dose. Do not hold dose to wait for level. Specimens batched twice per day, (M-F) and once per day weekends Method performed is a chemiluminescent microparticle immunoasssay on the [employer] i2000. The range is based on experience at [facility] and users should be aware that target concentrations vary widely depending on concomitant therapy, time post-transplant, and desired degree of immunosuppression. Performed By: #### T ACRO #### [facility] [address] [place] [address] Ketones Ql (U) Negative Normal Negative [facility] Comment on above: Order Comment: Pleas e draw at specified interval PRIOR to dose. Do not hold dose to wait for level. Specimens batched twice per day, (M-F) and once per day weekends Method performed is a chemiluminescent microparticle immunoasssay on the [employer] i2000. The range is based on experience at [facility] and users should be aware that target concentrations vary widely depending on concomitant therapy, time post-transplant, and desired degree of immunosuppression. Performed By: #### T ACRO #### [facility] [address] [place] [address] Leukocyte esterase Test strip Ql (U) Negative Normal Negative [facility] Comment on above: Order Comment: Pleas e draw at specified interval PRIOR to dose. Do not hold dose to wait for level. Specimens batched twice per day, (M-F) and once per day weekends Method performed is a chemiluminescent microparticle immunoasssay on the [employer] i2000. The range is based on experience at [facility] and users should be aware that target concentrations vary widely depending on concomitant therapy, time post-transplant, and desired degree of immunosuppression. Performed By: #### T ACRO #### [facility] (DEFAULT) [address] [place] [address] Nitrites Urine Negative Normal Negative [facility] Comment on above: Order Comment: Pleas e draw at specified interval PRIOR to dose. Do not hold dose to wait for level. Specimens batched twice per day, (M-F) and once per day weekends Method performed is a chemiluminescent microparticle immunoasssay on the [employer] i2000. The range is based on experience at [facility] and users should be aware that target concentrations vary widely depending on concomitant therapy, time post-transplant, and desired degree of immunosuppression. Performed By: #### T ACRO #### [facility] (DEFAULT) [address] [address] pH (U) 6.0 [pH] Normal 5.0-7.0 [facility] Comment on above: Order Comment: Pleas e draw at specified interval PRIOR to dose. Do not hold dose to wait for level. Specimens batched twice per day, (M-F) and once per day weekends Method performed is a chemiluminescent microparticle immunoasssay on the [employer] i2000. The range is based on experience at [facility] and users should be aware that target concentrations vary widely depending on concomitant therapy, time post-transplant, and desired degree of immunosuppression. Performed By: #### T ACRO #### [facility] (DEFAULT) [address] [address] Protein Urine Negative Normal Negative [facility] Comment on above: Order Comment: Pleas e draw at specified interval PRIOR to dose. Do not hold dose to wait for level. Specimens batched twice per day, (M-F) and once per day weekends Method performed is a chemiluminescent microparticle immunoasssay on the [employer] i2000. The range is based on experience at [facility] and users should be aware that target concentrations vary widely depending on concomitant therapy, time post-transplant, and desired degree of immunosuppression. Performed By: #### T ACRO #### [facility] (DEFAULT) [address] [address] RBC Urine 3-5 Abnormal 0-2 [facility] Comment on above: Order Comment: Pleas e draw at specified interval PRIOR to dose. Do not hold dose to wait for level. Specimens batched twice per day, (M-F) and once per day weekends Method performed is a chemiluminescent microparticle immunoasssay on the [employer] i2000. The range is based on experience at [facility] and users should be aware that target concentrations vary widely depending on concomitant therapy, time post-transplant, and desired degree of immunosuppression. Performed By: #### T ACRO #### [facility] [address] [address] Specific [place] Urine 1.015 Normal 1.001-1.035 [facility] Comment on above: Order Comment: Pleas e draw at specified interval PRIOR to dose. Do not hold dose to wait for level. Specimens batched twice per day, (M-F) and once per day weekends Method performed is a chemiluminescent microparticle immunoasssay on the [employer] i2000. The range is based on experience at [facility] and users should be aware that target concentrations vary widely depending on concomitant therapy, time post-transplant, and desired degree of immunosuppression. Performed By: #### T ACRO #### [facility] (DEFAULT) [address] [address] Squamous/Epithelial Cells 0-2/hpf Normal 0-2/hpf, 3-5/hpf = 1+ [facility] Comment on above: Order Comment: Pleas e draw at specified interval PRIOR to dose. Do not hold dose to wait for level. Specimens batched twice per day, (M-F) and once per day weekends Method performed is a chemiluminescent microparticle immunoasssay on the [employer] i2000. The range is based on experience at [facility] and users should be aware that target concentrations vary widely depending on concomitant therapy, time post-transplant, and desired degree of immunosuppression. Performed By: #### T ACRO #### [facility] (DEFAULT) [address] [address] Urobilinogen Urine 1.0 E.U./dL Normal 0.2 E.U/d L, 1.0 E.U/dL [facility] Comment on above: Order Comment: Pleas e draw at specified interval PRIOR to dose. Do not hold dose to wait for level. Specimens batched twice per day, (M-F) and once per day weekends Method performed is a chemiluminescent microparticle immunoasssay on the [employer] i2000. The range is based on experience at [facility] and users should be aware that target concentrations vary widely depending on concomitant therapy, time post-transplant, and desired degree of immunosuppression. Performed By: #### T ACRO #### [facility] (DEFAULT) [address] [place] [address] WBC Urine 0 - 5 Normal 0 - 5 [facility] Comment on above: Order Comment: Pleas e draw at specified interval PRIOR to dose. Do not hold dose to wait for level. Specimens batched twice per day, (M-F) and once per day weekends Method performed is a chemiluminescent microparticle immunoasssay on the [employer] i2000. The range is based on experience at [facility] and users should be aware that target concentrations vary widely depending on concomitant therapy, time post-transplant, and desired degree of immunosuppression. Performed By: #### T ACRO #### [facility] (DEFAULT) [address] [place] [address] URINALYSIS REFLEX TO CULTURE PERFORMABLEOrdered By: Shaji Kelly on 08-29-2023 Appearance (U) Clear Clear [facility] Bacteria LM Ql (Urine sed) ABSENT ABSENT [facility] Calcium Oxalate Crystals PRESENT [facility] Color (U) Yellow Yellow [facility] Epithelial cells.squamous LM Ql (Urine sed) 0-2/hpf 0-2/hpf, 3-5/hpf = 1+ [facility] Glucose Test strip (U) [Mass/Vol] Negative Negative [facility] Interpretation and review of laboratory results Abnormal [facility] Ketones (U) [Mass/Vol] Negative Negative [facility] Leukocyte esterase Test strip Ql (U) Negative Negative [facility] Nitrite Ql (U) Negative Negative [facility] pH (U) 6.0 [pH] 5.0 - 7.0 [facility] Protein (U) [Mass/Vol] Negative Negative [facility] RBC (U) [#/Vol] Trace Abnormal Negative [facility] RBC LM.HPF (Urine sed) [#/Area] 3-5 Abnormal [facility] Specific gravity (U) [Rel density] 1.015 1.001 - 1.035 [facility] Urobilinogen (U) [Mass/Vol] 1.0 E.U./dL 0.2 E.U/dL, 1.0 E.U/dL [facility] WBC LM.HPF (Urine sed) [#/Area] 0 - 5 [facility] URINE CULTUREon 08-29-2023 Bacteria identified Cx Nom (U) No Growth Normal [facility] Comment on above: Order Comment: For i ndwelling catheters, specimen collection is acceptable on catheter day 1 and 2 only. Sung top vacutainer. Urine must be to the fill line to process (4mls). If minimum volume, send urine in a yellow top vacutainer tube. Performed By: #### [facility] #### [facility] (DEFAULT) [address] [place] [address] [place] RENAL TRANSPLANT SCANon 0 08-29-2023 US [...] have reviewed and approved this report. Normal [facility] US for transplanted kidney l imitedon 08-29-2023 RADIOLOGY RADIOLOGY [facility] Radiology Study observation (narrative) [facility] US for transplanted kidney l imitedOrdered By: Romana Myers on 08-29-2023 [facility] Work Phone: XR CHEST PORTABLEon 08-29-20 23 XR CHEST PORTABLE EXAM: XR CHEST PORTABLE, 08/28/2023 21:46 PM CLINICAL INDICATIONS: Fevers, cough RELEVANT CLINICAL HISTORY: COMPARISON: May 17, 2022 FINDINGS: Clear lungs. Prominent heart, unchanged. No pulmonary edema. Normal bones. IMPRESSION: Prominent heart without pulmonary edema. Clear lungs. Normal [facility] BLOOD CULTUREon 08-28-2023 Bacteria identified Cx Nom (Unsp spec) NO GROWTH DAY 5 OF 5 Normal [facility] Comment on above: Order Comment: 2 [...] [facility] #### [facility] (DEFAULT) [address] [place] [address] Bacteria identified Cx Nom (Unsp spec) NO GROWTH DAY 5 OF 5 Normal [facility] Comment on above: Order Comment: 2 Bot tles (1 Set - consists of 1 Aerobic bottle and 1 Anaerobic bottle) -1st Peripheral DrawFor syringe method draw:If able to obtain adequate sample (20 ml) inoculate anaerobic bottle firstIf inadequate sample obtained (less than 20 ml) inoculate aerobic bottle firstFor vacutainer method draw: Fill aerobic bottle first, then anaerobic Performed By: #### Lydia [facility] #### [facility] (DEFAULT) [address] [address] DARYL AURIS SCREEN BY PCRo n 08-28-2023 Daryl auris Screen by PCR Not detected Normal Not Detected [facility] Comment on above: Order Comment: This test was performed using a real-time PCR assay. This test was developed, and its performance characteristics determined by [facility]. It has not been cleared or approved by the FDA. The laboratory is regulated under CLIA as qualified to perform high-complexity testing. This test is used for clinical purposes. It should not be regarded as investigational or for research. Performed By: #### Lydia ANGULO #### [facility] (DEFAULT) [address] [address] CBC AND ELECTRONIC DIFFon Abs Baso Auto < Normal 0.00-0.09 [facility] Comment on above: Performed By: ###Walter UNDERWOOD #### [facility] (DEFAULT) [address] [address] Basophils/100 WBC (Bld) 0.6 % Normal [facility] Comment on above: Performed By: ###Walter UNDERWOOD #### [facility] (DEFAULT) [address] [address] DIFF STATUS Electronic Differential Normal [facility] Comment on above: Performed By: ###Walter UNDERWOOD #### [facility] (DEFAULT) [address] [address] Eosinophils (Bld) [#/Vol] 0.10 10*3/uL Normal 0.00-0.48 [facility] Comment on above: Performed By: #### Vale UNDERWOOD #### [facility] (DEFAULT) [address] [address] Eosinophils/100 WBC (Bld) 2.1 % Normal [facility] Comment on above: Performed By: #### Vale UNDERWOOD #### [facility] (DEFAULT) [address] [address] Hematocrit (Bld) [Volume fraction] 37.9 % Low 39.6-48.8 [facility] Comment on above: Performed By: #### Vale UNDERWOOD #### [facility] (DEFAULT) [address] [address] Hemoglobin (Bld) [Mass/Vol] 12.4 g/dL Low 13.4-16.8 [facility] Comment on above: Performed By: #### Vale UNDERWOOD #### [facility] (DEFAULT) [address] [address] Immature Grans % 0.6 % Normal [facility] Comment on above: Performed By: #### Vale UNDERWOOD #### [facility] (DEFAULT) [address] [address] Immature Grans Absolute < Normal <=0.07 [facility] Comment on above: Performed By: #### Vale UNDERWOOD #### [facility] (DEFAULT) [address] [address] Lymphocytes (Bld) [#/Vol] 1.76 10*3/uL Normal 0.83-3.57 [facility] Comment on above: Performed By: #### Vale UNDERWOOD #### [facility] (DEFAULT) [address] [address] Lymphocytes/100 WBC (Bld) 37.1 % Normal [facility] Comment on above: Performed By: #### Vale UNDERWOOD #### [facility] (DEFAULT) [address] [address] MCV (RBC) [Entitic vol] 85.0 fL Normal 79.0-94.5 [facility] Comment on above: Performed By: ###Walter UNDERWOOD #### [facility] (DEFAULT) [address] [address] Mean Cell Hgb 27.8 pg Normal 26.1-33.3 [facility] Comment on above: Performed By: #### Vale UNDERWOOD #### [facility] (DEFAULT) [address] [place] [address] Mean Cell Hgb Conc 32.7 g/dL Normal 31.9-36.5 [facility] Comment on above: Performed By: ###Walter UNDERWOOD #### [facility] (DEFAULT) [address] [address] Monocytes (Bld) [#/Vol] 0.66 10*3/uL Normal 0.24-0.93 [facility] Comment on above: Performed By: ###Walter UNDERWOOD #### [facility] (DEFAULT) [address] [address] Monocytes/100 WBC (Bld) 13.9 % Normal [facility] Comment on above: Performed By: ###Walter UNDERWOOD #### [facility] (DEFAULT) [address] [address] Nucleated RBC 0.0 /100 WBC Normal <=0.2 [facility] Comment on above: Performed By: ###Walter UNDERWOOD #### [facility] (DEFAULT) [address] [address] Platelet mean volume (Bld) [Entitic vol] 9.3 fL Normal 8.7-12.3 [facility] Comment on above: Performed By: ###Walter UNDERWOOD #### [facility] (DEFAULT) [address] [address] Platelets (Bld) [#/Vol] 262 10*3/uL Normal 146-337 [facility] Comment on above: Performed By: #### Vale UNDERWOOD #### [facility] (DEFAULT) [address] [place] [address] RBC (Bld) [#/Vol] 4.46 10*6/uL Normal 4.38-5.83 [facility] Comment on above: Performed By: #### Vale UNDERWOOD #### [facility] (DEFAULT) [address] [place] [address] RBC Distribution 13.4 % Normal 10.9-14.3 [facility] Comment on above: Performed By: #### Vale UNDERWOOD #### [facility] (DEFAULT) [address] [place] [address] Segs + Bands Auto 45.7 % Normal [facility] Comment on above: Performed By: ###Walter UNDERWOOD #### [facility] (DEFAULT) [address] [place] [address] Segs + Bands,Absolute Auto 2.16 K/uL Normal 1.57-6.19 [facility] Comment on above: Performed By: #### Vale UNDERWOOD #### [facility] (DEFAULT) [address] [place] [address] WBC (Bld) [#/Vol] 4.74 10*3/uL Normal 3.73-10.10 [facility] Comment on above: Performed By: ###Walter UNDERWOOD #### [facility] (DEFAULT) [address] [place] [address] Basophils (Bld) [#/Vol] K/uL 0.00 - 0.09 K/uL [facility] Basophils/100 WBC (Bld) 0.6 % [facility] Differential cell count method Nom (Bld) Electronic Differential [facility] Eosinophils (Bld) [#/Vol] 0.10 10*3/uL 0.00 - 0.48 K/uL [facility] Eosinophils/100 WBC (Bld) 2.1 % [facility] Erythrocyte distribution width (RBC) [Ratio] 13.4 % 10.9 - 14.3 % [facility] Hematocrit (Bld) [Volume fraction] 37.9 % Low 39.6 - 48.8 % [facility] Hemoglobin (Bld) [Mass/Vol] 12.4 g/dL Low 13.4 - 16.8 g/dL [facility] Immature granulocytes (Bld) [#/Vol] K/uL NINF - 0.07 K/uL [facility] Immature granulocytes/100 WBC (Bld) 0.6 % [facility] Interpretation and review of laboratory results Abnormal [facility] Lymphocytes (Bld) [#/Vol] 1.76 10*3/uL 0.83 - 3.57 K/uL [facility] Lymphocytes/100 WBC (Bld) 37.1 % [facility] MCH (RBC) [Entitic mass] 27.8 pg 26.1 - 33.3 pg [facility] MCHC (RBC) [Mass/Vol] 32.7 g/dL 31.9 - 36.5 g/dL [facility] MCV (RBC) [Entitic vol] 85.0 fL 79.0 - 94.5 fL [facility] Monocytes (Bld) [#/Vol] 0.66 10*3/uL 0.24 - 0.93 K/uL [facility] Monocytes/100 WBC (Bld) 13.9 % [facility] Neutrophils (Bld) [#/Vol] 2.16 10*3/uL 1.57 - 6.19 K/uL [facility] Nucleated RBC/100 WBC (Bld) [Ratio] 0.0 % [facility] Platelet mean volume (Bld) [Entitic vol] 9.3 fL 8.7 - 12.3 fL [facility] Platelets (Bld) [#/Vol] 262 10*3/uL 146 - 337 K/uL [facility] RBC (Bld) [#/Vol] 4.46 10*6/uL [facility] Segmented neutrophils/100 WBC (Bld) 45.7 % [facility] WBC (Bld) [#/Vol] 4.74 10*3/uL 3.73 - 10. 10 K/uL [facility] CHEM 6 (LYTES, BUN CREA)on 0 08-28-2023 Anion gap [Moles/Vol] 13 mmol/L Normal 7-17 [facility] Comment on above: Performed By: #### C HM6 #### [facility] (DEFAULT) [address] [place] [address] Chloride [Moles/Vol] 103 mmol/L Normal 98-108 [facility] Comment on above: Performed By: #### C HM6 #### [facility] (DEFAULT) [address] [address] CO2 [Moles/Vol] 22 mmol/L Normal 21-31 [facility] Comment on above: Performed By: #### C HM6 #### [facility] (DEFAULT) [address] [place] [address] Creatinine [Mass/Vol] 1.62 mg/dL High 0.70-1.30 [facility] Comment on above: Performed By: #### C HM6 #### [facility] (DEFAULT) [address] [address] GFR/1.73 sq M.predicted among non-blacks MDRD (S/P/Bld) [Vol rate/Area] 51 mL/min/{1.73_m2} Low >=60 [facility] Comment on above: Result Comment: Repo rted eGFR is based on the CKD-EPI 2020 equation using creatinine, age, and sex. Performed By: #### C HM6 #### [facility] (DEFAULT) [address] [address] Potassium [Moles/Vol] 4.3 mmol/L Normal 3.5-5.0 [facility] Comment on above: Performed By: #### C HM6 #### [facility] (DEFAULT) [address] [place] [address] Sodium [Moles/Vol] 134 mmol/L Low 135-145 [facility] Comment on above: Performed By: #### C HM6 #### [facility] (DEFAULT) [address] [place] [address] Urea nitrogen [Mass/Vol] 22 mg/dL Normal 7-25 [facility] Comment on above: Performed By: #### C HM6 #### [facility] (DEFAULT) [address] [place] [address] Urea nitrogen/Creatinine [Mass ratio] 14 mg/mg Normal [facility] Comment on above: Performed By: #### C HM6 #### [facility] (DEFAULT) [address] [place] [address] Anion gap [Moles/Vol] 13 mmol/L 7 - 17 mmol/L [facility] Chloride [Moles/Vol] 103 mmol/L 98 - 10 8 mmol/L [facility] CO2 [Moles/Vol] 22 mmol/L 21 - 31 mmol/L [facility] Creatinine [Mass/Vol] 1.62 mg/dL High 0.70 - 1.30 mg/dL [facility] eGFR, CKD-EPI, Male 51 Low - PINF [facility] Interpretation and review of laboratory results Abnormal [facility] Potassium [Moles/Vol] 4.3 mmol/L 3.5 - 5.0 mmol/L [facility] Sodium [Moles/Vol] 134 mmol/L Low 135 - 145 mmol/L [facility] Urea nitrogen [Mass/Vol] 22 mg/dL 7 - 25 mg/dL [facility] Urea nitrogen/Creatinine [Mass ratio] 14 mg[facility]MM[facility]OCOMPROMISED RESPIRATOR Y PANELon 08-28-2023 Adenovirus - Pcr Not detected Normal Not Detected [facility] Comment on above: Order Comment: Viral transport [...] Performed By: #### H EMO #### [facility] (DEFAULT) [address] [address] Bordetella Parapertussis Not detected Normal Not Detected [facility] Comment on above: Order Comment: Viral transport [...] assay. Performed By: #### H EMO #### [facility] [address] [address] Bordetella Pertussis Not detected Normal Not Detected [facility] Comment on above: Order Comment: Viral transport [...] Performed By: #### H EMO #### [facility] (DEFAULT) [address] [address] Chlamydia Pneumoniae Not detected Normal Not Detected [facility] Comment on above: Order Comment: Viral transport [...] assay. Performed By: #### H EMO #### [facility] [address] [address] Coronavirus 229E Not detected Normal Not Detected [facility] Comment on above: Order Comment: Viral transport [...] assay. Performed By: #### H EMO #### [facility] (DEFAULT) [address] [place] [address] Coronavirus Hku1 Not detected Normal Not Detected [facility] Comment on above: Order Comment: Viral transport [...] assay. Performed By: #### H EMO #### [facility] (DEFAULT) [address] [place] [address] Coronavirus Nl63 Not detected Normal Not Detected [facility] Comment on above: Order Comment: Viral transport [...] assay. Performed By: #### H EMO #### [facility] (DEFAULT) [address] [address] Coronavirus Oc43 Not detected Normal Not Detected [facility] Comment on above: Order Comment: Viral transport [...] assay. Performed By: #### H EMO #### [facility] (DEFAULT) [address] [address] Influenza A - Pcr Not detected Normal Not Detected [facility] Comment on above: Order Comment: Viral [...] [facility] #### [facility] (DEFAULT) [address] [place] [address] Influenza B - Pcr Not detected Normal Not Detected [facility] Comment on above: Order Comment: Viral [...] Performed By: #### H EMO #### [facility] (DEFAULT) [address] [address] Metapneumovirus - Pcr Not detected Normal Not Detected [facility] Comment on above: Order Comment: Viral transport [...] Performed By: #### H EMO #### [facility] (DEFAULT) [address] [place] [address] Mycoplasma Pneumoniae Not detected Normal Not Detected [facility] Comment on above: Order Comment: Viral transport [...] [facility] #### [facility] (DEFAULT) [address] [place] [address] Parainfluenza 1 - Pcr Not detected Normal Not Detected [facility] Comment on above: Order Comment: Viral transport [...] Performed By: #### H EMO #### [facility] (DEFAULT) [address] [address] Parainfluenza 2 - Pcr Not detected Normal Not Detected [facility] Comment on above: Order Comment: Viral transport [...] [facility] #### [facility] [address] [place] [address] Parainfluenza 3 - Pcr Not detected Normal Not Detected [facility] Comment on above: Order Comment: Viral transport [...] [facility] #### [facility] (DEFAULT) [address] [place] [address] Parainfluenza 4 - Pcr Not detected Normal Not Detected [facility] Comment on above: Order Comment: Viral transport [...] [facility] #### [facility] [address] [address] Rhinovirus/Enteroviru s - PCR Not detected Normal Not Detected [facility] Comment on above: Order Comment: Viral transport [...] [facility] #### [facility] (DEFAULT) [address] [address] Rsv - Pcr Not detected Normal Not Detected [facility] Comment on above: Order Comment: Viral transport [...] [facility] #### [facility] (DEFAULT) [address] [address] SARS-CoV-2 (COVID-19) RNA ESTELITA+probe Ql (Unsp spec) Not detected Normal NOT DETECTED [facility] Comment on above: Order Comment: Viral transport [...] [facility] #### [facility] (DEFAULT) [address] [place] [address] Portable XR Chest [facility]son Radiology Study observation (narrative) [facility] Respiratory virus DNA+RNA NA A+probe Nom (Unsp spec)Ordered By: Dayami Harris on 08-28-2023 Adenovirus DNA ESTELITA+probe Nom (Unsp spec) Not detected Not Detected [facility] B. parapertussis DNA ESTELITA+probe Ql (Unsp spec) Not detected Not Detected [facility] B. pertussis DNA ESTELITA+probe Ql (Unsp spec) Not detected Not Detected [facility] C. pneumoniae DNA ESTELITA+probe Ql (Unsp spec) Not detected Not Detected [facility] FLUAV RNA ESTELITA+probe Ql (Unsp spec) Not detected Not Detected [facility] FLUBV RNA ESTELITA+probe Ql (Unsp spec) Not detected Not Detected [facility] HCoV 229E RNA ESTELITA+non-probe Ql (Nph) Not detected Not Detected [facility] HCoV HKU1 RNA ESTELITA+non-probe Ql (Nph) Not detected Not Detected [facility] HCoV NL63 RNA ESTELITA+non-probe Ql (Nph) Not detected Not Detected [facility] HCoV OC43 RNA ESTELITA+non-probe Ql (Nph) Not detected Not Detected [facility] hMPV A RNA ESTELITA+probe Ql (Unsp spec) Not detected Not Detected [facility] Interpretation and review of laboratory results Normal [facility] M. pneumoniae DNA ESTELITA+probe Ql (Unsp spec) Not detected Not Detected [facility] Parainfluenza virus 1 RNA ESTELITA+probe Ql (Unsp spec) Not detected Not Detected [facility] Parainfluenza virus 2 RNA ESTELITA+probe Ql (Unsp spec) Not detected Not Detected [facility] Parainfluenza virus 3 RNA ESTELITA+probe Ql (Unsp spec) Not detected Not Detected [facility] Parainfluenza virus 4 RNA ESTELITA+probe Ql (Unsp spec) Not detected Not Detected [facility] Rhinovirus+Enteroviru s RNA ESTELITA+probe Ql (Unsp spec) Not detected Not Detected [facility] RSV RNA ESTELITA+probe Ql (Unsp spec) Not detected Not Detected [facility] SARS-CoV-2 (COVID-19) RNA ESTELITA+probe Ql (Unsp spec) Not detected NOT DETECTED [facility] ALBUMINon 04-28-2023 Albumin [Mass/Vol] 4.0 g/dL Normal 3.4-5.0 [facility] Comment on above: Performed By: #### C MP #### [facility] [address] [place] [address] Dr. Dwight Waters ALKALINE PHOSPHAon ALP [Catalytic activity/Vol] 106 U/L Normal 46-116 [facility] Comment on above: Performed By: #### F [id number] #### [facility] [address] [place] [address] Dr. Dwight Waters BILIRUBIN CONJUGATED (DIRECT )on 04-28-2023 BILI, CONJUGATED 0.3 mg/dL Critically high 0.0-0.2 [facility] Comment on above: Performed By: #### C MP #### [facility] [address] [place] [address] Dr. Dwight Waters BILIRUBIN TOTALon 04-28-2023 Bilirubin [Mass/Vol] 1.4 mg/dL Critically high 0.2-1.0 [facility] Comment on above: Performed By: #### C MP #### [facility] [address] [place] [address] Dr. Dwight Waters BUNon 04-28-2023 Urea nitrogen [Mass/Vol] 12.0 mg/dL Normal 7.0-18.0 [facility] Comment on above: Performed By: #### U RTPCR #### [facility] [address] [place] [address] Dr. Dwight Waters CALCIUMon 04-28-2023 Calcium [Mass/Vol] 9.3 mg/dL Normal 8.5-10.1 [facility] Comment on above: Performed By: #### U RTPCR #### [facility] [address] [place] [address] Dr. Dwight Waters CBC AUTO DIFFon 04-28-2023 BASO # 0.1 103/ul Normal 0.0-0.1 [facility] Comment on above: Performed By: #### C BC #### [facility] [address] [place] [address] Dr. Dwight Waters Basophils/100 WBC (Bld) 0.9 % Normal 0.2-2.0 [facility] Comment on above: Performed By: #### C BC #### [facility] [address] [place] [address] Dr. Dwight Waters EO # 0.2 103/ul Normal 0.0-0.7 [facility] Comment on above: Performed By: #### C BC #### [facility] [address] [place] [address] Dr. Dwight Waters Eosinophils/100 WBC (Bld) 3.8 % Normal 0.9-7.0 [facility] Comment on above: Performed By: #### C BC #### [facility] [address] [place] [address] Dr. Dwight Waters Erythrocyte distribution width (RBC) [Ratio] 12.5 % Normal 11.0-15.0 [facility] Comment on above: Performed By: #### C BC #### [facility] [address] [place] [address] Dr. Dwight Waters Hematocrit (Bld) [Volume fraction] 49.8 % Normal 42.0-54.0 [facility] Comment on above: Performed By: #### C BC #### [facility] [address] [place] [address] Dr. Dwight Waters Hemoglobin (Bld) [Mass/Vol] 16.4 g/dL Normal 14.0-18.0 [facility] Comment on above: Performed By: #### C BC #### [facility] [address] [place] [address] Dr. Dwight Waters IG # 0.01 10e3/ul Normal 0.00-0.03 [facility] Comment on above: Performed By: #### C BC #### [facility] [address] [place] [address] Dr. Dwight Waters IG % 0.2 % Normal 0.0-0.5 [facility] Comment on above: Performed By: #### C BC #### [facility] [address] [place] [address] Dr. Dwight Waters LYMPH # 2.1 103/ul Normal 1.2-3.8 [facility] Comment on above: Performed By: #### C BC #### [facility] [address] [place] [address] Dr. Dwight Waters Lymphocytes/100 WBC (Bld) 39.1 % Normal 20.5-60.0 [facility] Comment on above: Performed By: #### C BC #### [facility] [address] [place] [address] Dr. Dwight Waters MANUAL DIFF REQ NO Normal [facility] Comment on above: Performed By: #### C BC #### [facility] [address] [place] [address] Dr. Dwight Waters MCH (RBC) [Entitic mass] 28.6 pg Normal 25.9-34.0 [facility] Comment on above: Performed By: #### C BC #### [facility] [address] [place] [address] Dr. Dwight Waters MCHC (RBC) [Mass/Vol] 32.9 g/dL Normal 29.9-35.2 [facility] Comment on above: Performed By: #### C BC #### [facility] [address] [place] [address] Dr. Dwight Waters MCV (RBC) [Entitic vol] 86.9 fL Normal 80.0-94.0 [facility] Comment on above: Performed By: #### C BC #### [facility] [address] [place] [address] Dr. Dwight Waters MONO # 0.6 103/ul Normal 0.3-0.8 [facility] Comment on above: Performed By: #### C BC #### [facility] [address] [place] [address] Dr. Dwight Waters Monocytes/100 WBC (Bld) 10.6 % Normal 1.7-12.0 [facility] Comment on above: Performed By: #### C BC #### [facility] [address] [place] [address] Dr. Dwight Waters NEUT # 2.5 103/ul Normal 1.4-6.5 [facility] Comment on above: Performed By: #### C BC #### [facility] [address] [place] [address] Dr. Dwight Waters Neutrophils/100 WBC (Bld) 45.4 % Normal 43.0-75.0 [facility] Comment on above: Performed By: #### C BC #### [facility] [address] [place] [address] Dr. Dwight Waters Platelet mean volume (Bld) [Entitic vol] 9.3 fL Critically low 9.5-13.5 [facility] Comment on above: Performed By: #### C BC #### [facility] [address] [place] [address] Dr. Dwight Waters PLT 248 103/ul Normal 150-450 [facility] Comment on above: Performed By: #### C BC #### [facility] [address] [place] [address] Dr. Dwight Waters RBC 5.73 106/ul Normal 4.70-6.10 [facility] Comment on above: Performed By: #### C BC #### [facility] [address] [place] [address] Dr. Dwight Waters WBC 5.5 103/ul Normal 4.0-11.0 [facility] Comment on above: Performed By: #### C BC #### [facility] [address] [place] [address] Dr. Dwight Waters CHLORIDEon 04-28-2023 Chloride [Moles/Vol] 107 mmol/L Normal 98-107 [facility] Comment on above: Performed By: #### U RTPCR #### [facility] [address] [place] [address] Dr. Dwight Waters CO2on 04-28-2023 CO2 [Moles/Vol] 28.9 mmol/L Normal 21.0-32.[address] [facility] Comment on above: Performed By: #### U RTPCR #### [facility] [address] [place] [address] Dr. Dwight Waters CREATININEon 04-28-2023 Creatinine [Mass/Vol] 1.17 mg/dL Normal 0.70-1.30 [facility] Comment on above: Performed By: #### U RTPCR #### [facility] [address] [place] [address] Dr. Dwight Waters EGFR-AF INDIAN >60 Normal >=[address] [facility] Comment on above: Performed By: #### U RTPCR #### [facility] [address] [place] [address] Dr. Dwight Waters EGFR-NON AF INDIAN >60 Normal >=60 [facility] Comment on above: Performed By: #### U RTPCR #### [facility] [address] [place] [address] Dr. Dwight Waters GGTon 04-28-2023 Gamma glutamyl transferase [Catalytic activity/Vol] 27 U/L Normal 15-85 [facility] Comment on above: Performed By: #### U RTPCR #### [facility] [address] [place] [address] Dr. Dwight Waters GLUCOSE BLOODon 04-28-2023 Glucose [Mass/Vol] 110 mg/dL Critically high 74-106 [facility] Comment on above: Performed By: #### U RTPCR #### [facility] [address] [place] [address] Dr. Dwight Waters MAGNESIUMon 04-28-2023 Magnesium [Mass/Vol] 1.7 mg/dL Critically low 1.8-2.4 [facility] Comment on above: Performed By: #### U RTPCR #### [facility] [address] [place] [address] Dr. Dwight Waters NAon 04-28-2023 Sodium [Moles/Vol] 144 mmol/L Normal 136-145 [facility] Comment on above: Performed By: #### U RTPCR #### [facility] [address] [place] [address] Dr. Dwight Waters PHOSPHORUSon 04-28-2023 Phosphate [Mass/Vol] 3.2 mg/dL Normal 2.6-4.7 [facility] Comment on above: Performed By: #### U RTPCR #### [facility] [address] [place] [address] Dr. Dwight Waters POTASSIUMon 04-28-2023 Potassium [Moles/Vol] 4.0 mmol/L Normal 3.5-5.1 [facility] Comment on above: Performed By: #### U RTPCR #### [facility] [address] [place] [address] Dr. Dwight Waters SGOTon 04-28-2023 AST [Catalytic activity/Vol] 25 U/L Normal 15-37 [facility] Comment on above: Performed By: #### C MP #### [facility] [address] [place] [address] Dr. Dwight Waters SGPTon 04-28-2023 ALT [Catalytic activity/Vol] 40 U/L Normal 16-63 [facility] Comment on above: Performed By: #### C MP #### [facility] [address] [place] [address] Dr. Dwight Waters URINE T PROTEIN CREAT RATIOo n 04-28-2023 Protein (U) [Mass/Vol] 10.1 mg/dL Normal <=12.0 [facility] Comment on above: Performed By: #### U RTPCR #### [facility] [address] [place] [address] Dr. Dwight Waters UR PROT CREAT RAT 0.14 Normal [facility] Comment on above: Performed By: #### U RTPCR #### [facility] [address] [place] [address] Dr. Dwight Waters URINE CREAT 74.40 mg/dL Normal 20.00-300.00 [facility] Comment on above: Performed By: #### U RTPCR #### [facility] [address] [place] [address] Dr. Dwight Waters Office Visiton 04-13-2023 Follow-up visit [id number] George Styles Tray 1970 M Date Provider Department Center 04/13/2023 MIGUEL PARADA [facility] Family History Problem Relation Age of Onset Coronary artery disease Mother Coronary artery disease Father Family Status - Relation Status Age at Mother Father Level of Service:[id number] ID OFFICE/OUTPATIENT ESTABLISHED LOW MDM 20-29 MIN Reason for Visit and Comments: Hypertension [475005] Hyperlipidemia [182] Normal [facility] BK VIRUS PCR QUANTon 023 BKV DNA QUANT PCR PLASMA Negative Normal Negative [facility] Comment on above: Result Comment: No B K DNA detected. . The linear range of the assay is 22 - 100,000,000 IU/mL. Performed By: #### B KVIRUS #### [facility] [address] [place] [address] Dr. Dwight Waters Log10 BKV DNA Plasma Normal [facility] Comment on above: Performed By: #### B KVIRUS #### [facility] [address] [place] [address] Dr. Dwight Waters FK506 (TACROLIMUS) WHOLE BLO ODon 03-04-2023 Tacrolimus (FK506), Blood 5.9 ng/mL Normal 2.0-20.0 [facility] Comment on above: Result Comment: Trou gh (immediately following transplant) 15.0 . Trough (steady state, 2 weeks or more after transplant): 3.0 - 8.0 . Performed by LC-MS/MS technology. Performed By: #### C MP #### [facility] [address] [place] [address] Dr. Dwight Waters ALBUMINon 03-02-2023 Albumin [Mass/Vol] 3.9 g/dL Normal 3.4-5.0 [facility] Comment on above: Performed By: #### U RTPCR #### [facility] [address] [place] [address] Dr. Diwght Waters ALKALINE PHOSPHAon ALP [Catalytic activity/Vol] 105 U/L Normal 46-116 [facility] Comment on above: Performed By: #### U RTPCR #### [facility] [address] [place] [address] Dr. Dwight Waters BILIRUBIN CONJUGATED (DIRECT )on 03-02-2023 BILI, CONJUGATED 0.2 mg/dL Normal 0.0-0.[address] [facility] Comment on above: Performed By: #### U RTPCR #### [facility] [address] [place] [address] Dr. Dwigth Waters BILIRUBIN TOTALon 03-02-2023 Bilirubin [Mass/Vol] 0.9 mg/dL Normal 0.2-1.0 [facility] Comment on above: Performed By: #### U RTPCR #### [facility] [address] [place] [address] Dr. Dwight Waters CBC AUTO DIFFon 03-02-2023 BASO # 0.1 103/ul Normal 0.0-0.1 [facility] Comment on above: Performed By: #### C BC #### [facility] [address] [place] [address] Dr. Dwight Waters Basophils/100 WBC (Bld) 0.9 % Normal 0.2-2.0 [facility] Comment on above: Performed By: #### C BC #### [facility] [address] [place] [address] Dr. Dwight Waters EO # 0.2 103/ul Normal 0.0-0.7 [facility] Comment on above: Performed By: #### C BC #### [facility] [address] [place] [address] Dr. Dwight Waters Eosinophils/100 WBC (Bld) 3.5 % Normal 0.9-7.0 [facility] Comment on above: Performed By: #### C BC #### [facility] [address] [place] [address] Dr. Dwight Waters Erythrocyte distribution width (RBC) [Ratio] 12.7 % Normal 11.0-15.0 [facility] Comment on above: Performed By: #### C BC #### [facility] [address] [place] [address] Dr. Dwight Waters Hematocrit (Bld) [Volume fraction] 48.2 % Normal 42.0-54.0 [facility] Comment on above: Performed By: #### C BC #### [facility] [address] [place] [address] Dr. Dwight Waters Hemoglobin (Bld) [Mass/Vol] 15.9 g/dL Normal 14.0-18.0 [facility] Comment on above: Performed By: #### C BC #### [facility] [address] [place] [address] Dr. Dwight Waters IG # 0.01 10e3/ul Normal 0.00-0.03 [facility] Comment on above: Performed By: #### C BC #### [facility] [address] [place] [address] Dr. Dwight Waters IG % 0.2 % Normal 0.0-0.5 [facility] Comment on above: Performed By: #### C BC #### [facility] [address] [place] [address] Dr. Dwight Waters LYMPH # 2.1 103/ul Normal 1.2-3.8 [facility] Comment on above: Performed By: #### C BC #### [facility] [address] [place] [address] Dr. Dwight Waters Lymphocytes/100 WBC (Bld) 37.4 % Normal 20.5-60.0 [facility] Comment on above: Performed By: #### C BC #### [facility] [address] [place] [address] Dr. Dwight Waters MANUAL DIFF REQ NO Normal [facility] Comment on above: Performed By: #### C BC #### [facility] [address] [place] [address] Dr. Dwight Waters MCH (RBC) [Entitic mass] 28.3 pg Normal 25.9-34.0 [facility] Comment on above: Performed By: #### C BC #### [facility] [address] [place] [address] Dr. Dwight Waters MCHC (RBC) [Mass/Vol] 33.0 g/dL Normal 29.9-35.2 [facility] Comment on above: Performed By: #### C BC #### [facility] [address] [place] [address] Dr. Dwight Waters MCV (RBC) [Entitic vol] 85.8 fL Normal 80.0-94.0 [facility] Comment on above: Performed By: #### C BC #### [facility] [address] [place] [address] Dr. Dwight Waters MONO # 0.6 103/ul Normal 0.3-0.8 [facility] Comment on above: Performed By: #### C BC #### [facility] [address] [place] [address] Dr. Dwight Waters Monocytes/100 WBC (Bld) 10.2 % Normal 1.7-12.0 [facility] Comment on above: Performed By: #### C BC #### [facility] [address] [place] [address] Dr. Dwight Waters NEUT # 2.7 103/ul Normal 1.4-6.5 [facility] Comment on above: Performed By: #### C BC #### [facility] [address] [place] [address] Dr. Dwight Waters Neutrophils/100 WBC (Bld) 47.8 % Normal 43.0-75.0 [facility] Comment on above: Performed By: #### C BC #### [facility] [address] [place] [address] Dr. Dwight Waters Platelet mean volume (Bld) [Entitic vol] 9.3 fL Critically low 9.5-13.5 [facility] Comment on above: Performed By: #### C BC #### [facility] [address] [place] [address] Dr. Dwight Waters PLT 241 103/ul Normal 150-450 [facility] Comment on above: Performed By: #### C BC #### [facility] [address] [place] [address] Dr. Dwight Waters RBC 5.62 106/ul Normal 4.70-6.10 [facility] Comment on above: Performed By: #### C BC #### [facility] [address] [place] [address] Dr. Dwight Waters WBC 5.7 103/ul Normal 4.0-11.0 [facility] Comment on above: Performed By: #### C BC #### [facility] [address] [place] [address] Dr. Diwght Waters GGTon 03-02-2023 Gamma glutamyl transferase [Catalytic activity/Vol] 25 U/L Normal 15-85 [facility] Comment on above: Performed By: #### U RTPCR #### [facility] [address] [place] [address] Dr. Dwight Waters MAGNESIUMon 03-02-2023 Magnesium [Mass/Vol] 1.6 mg/dL Critically low 1.8-2.4 [facility] Comment on above: Performed By: #### U RTPCR #### [facility] [address] [place] [address] Dr. Dwight Waters PHOSPHORUSon 03-02-2023 Phosphate [Mass/Vol] 3.6 mg/dL Normal 2.6-4.7 [facility] Comment on above: Performed By: #### U RTPCR #### [facility] [address] [place] [address] Dr. Dwight Waters PROF CHEM 8 (BAS METB)on Anion gap [Moles/Vol] 9.4 mmol/L Normal [facility] Comment on above: Performed By: #### U RTPCR #### [facility] [address] [place] [address] Dr. Dwight Waters Calcium [Mass/Vol] 9.3 mg/dL Normal 8.5-10.1 [facility] Comment on above: Performed By: #### U RTPCR #### [facility] [address] [address] [address] Dwight Waters Chloride [Moles/Vol] 108 mmol/L Critically high 98-107 [facility] Comment on above: Performed By: #### U RTPCR #### [facility] [address] [address] [address] Dwight Waters CO2 [Moles/Vol] 27.2 mmol/L Normal 21.0-32.[address] [facility] Comment on above: Performed By: #### U RTPCR #### [facility] [address] [place] [address] Dr. Dwight Waters Creatinine [Mass/Vol] 1.12 mg/dL Normal 0.70-1.30 [facility] Comment on above: Performed By: #### U RTPCR #### [facility] [address] [place] [address] Dr. Dwight Waters EGFR-AF INDIAN >60 Normal >=[address] [facility] Comment on above: Performed By: #### U RTPCR #### [facility] [address] [place] [address] Dr. Dwight Waters EGFR-NON AF INDIAN >60 Normal >=60 [facility] Comment on above: Performed By: #### U RTPCR #### [facility] [address] [place] [address] Dr. Dwight Waters Glucose [Mass/Vol] 113 mg/dL Critically high 74-106 [facility] Comment on above: Performed By: #### U RTPCR #### [facility] [address] [place] [address] Dr. Dwight Waters Potassium [Moles/Vol] 3.6 mmol/L Normal 3.5-5.1 [facility] Comment on above: Performed By: #### U RTPCR #### [facility] [address] [place] [address] Dr. Dwight Waters Sodium [Moles/Vol] 141 mmol/L Normal 136-145 [facility] Comment on above: Performed By: #### U RTPCR #### [facility] [address] [place] [address] Dr. Dwight Waters Urea nitrogen [Mass/Vol] 14.0 mg/dL Normal 7.0-18.0 [facility] Comment on above: Performed By: #### U RTPCR #### [facility] [address] [place] [address] Dr. Dwight Waters Urea nitrogen/Creatinine [Mass ratio] 12.5 mg/mg Normal [facility] Comment on above: Performed By: #### U RTPCR #### [facility] [address] [place] [address] Dr. Dwight OLVERAOTon 03-02-2023 AST [Catalytic activity/Vol] 20 U/L Normal 15-37 [facility] Comment on above: Performed By: #### U RTPCR #### [facility] [address] [place] [address] Dr. Dwight OLVERAPTon 03-02-2023 ALT [Catalytic activity/Vol] 30 U/L Normal 16-63 [facility] Comment on above: Performed By: #### U RTPCR #### [facility] [address] [place] [address] Dr. Dwight Waters URINE T PROTEIN CREAT RATIOo n 03-02-2023 Protein (U) [Mass/Vol] 10.3 mg/dL Normal <=12.0 [facility] Comment on above: Performed By: #### U RTPCR #### [facility] [address] [place] [address] Dr. Dwight Waters UR PROT CREAT RAT 0.15 Normal [facility] Comment on above: Performed By: #### U RTPCR #### [facility] [address] [place] [address] Dr. Dwight Waters URINE CREAT 68.96 mg/dL Normal 20.00-300.00 [facility] Comment on above: Performed By: #### U RTPCR #### [facility] [address] [place] [address] Dr. Dwight Waters BK VIRUS PCR QUANTon 023 BKV DNA QUANT PCR PLASMA Negative Normal Negative [facility] Comment on above: Result Comment: No B K DNA detected. . The linear range of the assay is 22 - 100,000,000 IU/mL. Performed By: #### C MP #### [facility] [address] [place] [address] Dr. Dwigth Waters Log10 BKV DNA Plasma Normal [facility] Comment on above: Performed By: #### C MP #### [facility] [address] [place] [address] Dr. Dwight Waters FK506 (TACROLIMUS) WHOLE BLO ODon 12-31-2022 Tacrolimus (FK506), Blood 5.6 ng/mL Normal 2.0-20.0 [facility] Comment on above: Result Comment: Trou gh (immediately following transplant) 15.0 . Trough (steady state, 2 weeks or more after transplant): 3.0 - 8.0 . Performed by LC-MS/MS technology. Performed By: #### C MP #### [facility] [address] [place] [address] Dr. Dwight Waters ALKALINE PHOSPHAon ALP [Catalytic activity/Vol] 96 U/L Normal 46-116 [facility] Comment on above: Performed By: #### C BC #### [facility] [address] [place] [address] Dr. Dwight Waters BILIRUBIN CONJUGATED (DIRECT )on 12-29-2022 BILI, CONJUGATED 0.3 mg/dL Critically high 0.0-0.2 [facility] Comment on above: Performed By: #### C BC #### [facility] [address] [place] [address] Dr. Dwight Waters BILIRUBIN TOTALon 12-29-2022 Bilirubin [Mass/Vol] 1.1 mg/dL Critically high 0.2-1.0 [facility] Comment on above: Performed By: #### C BC #### [facility] [address] [place] [address] Dr. Dwight Waters CBC AUTO DIFFon 12-29-2022 BASO # 0.1 103/ul Normal 0.0-0.1 [facility] Comment on above: Performed By: #### C MP #### [facility] [address] [address] [address] Dwight Waters Basophils/100 WBC (Bld) 0.8 % Normal 0.2-2.0 [facility] Comment on above: Performed By: #### C MP #### [facility] [address] [address] [address] Dwight Waters EO # 0.2 103/ul Normal 0.0-0.7 [facility] Comment on above: Performed By: #### C MP #### [facility] [address] [place] [address] Dr. Dwight Waters Eosinophils/100 WBC (Bld) 3.0 % Normal 0.9-7.0 [facility] Comment on above: Performed By: #### C MP #### [facility] [address] [place] [address] Dr. Dwight Waters Erythrocyte distribution width (RBC) [Ratio] 12.9 % Normal 11.0-15.0 [facility] Comment on above: Performed By: #### C MP #### [facility] [address] [place] [address] Dr. Dwight Waters Hematocrit (Bld) [Volume fraction] 46.9 % Normal 42.0-54.0 [facility] Comment on above: Performed By: #### C MP #### [facility] [address] [place] [address] Dr. Dwight Waters Hemoglobin (Bld) [Mass/Vol] 16.1 g/dL Normal 14.0-18.0 [facility] Comment on above: Performed By: #### C MP #### [facility] [address] [place] [address] Dr. Dwight Waters IG # 0.01 10e3/ul Normal 0.00-0.03 [facility] Comment on above: Performed By: #### C MP #### [facility] [address] [place] [address] Dr. Dwight Waters IG % 0.2 % Normal 0.0-0.5 [facility] [place] Comment on above: Performed By: #### C MP #### [facility] [address] [place] [address] Dr. Dwight Waters LYMPH # 1.8 103/ul Normal 1.2-3.8 [facility] Comment on above: Performed By: #### C MP #### [facility] [address] [place] [address] Dr. Dwight Waters Lymphocytes/100 WBC (Bld) 27.9 % Normal 20.5-60.0 [facility] Comment on above: Performed By: #### C MP #### [facility] [place] [facility] [address] [place] [address] Dr. Dwight Waters MANUAL DIFF REQ NO Normal [facility] Comment on above: Performed By: #### C MP #### [facility] [place] [facility] [address] [place] [address] Dr. Dwight Waters MCH (RBC) [Entitic mass] 28.5 pg Normal 25.9-34.0 [facility] Comment on above: Performed By: #### C MP #### [facility] [place] [facility] [address] [place] [address] Dr. Dwight Waters MCHC (RBC) [Mass/Vol] 34.3 g/dL Normal 29.9-35.2 [facility] Comment on above: Performed By: #### C MP #### [facility] [place] [facility] [address] [place] [address] Dr. Dwight Waters MCV (RBC) [Entitic vol] 83.2 fL Normal 80.0-94.0 [facility] Comment on above: Performed By: #### C MP #### [facility] [place] [facility] [address] [place] [address] Dr. Dwight Waters MONO # 0.5 103/ul Normal 0.3-0.8 [facility] [place] Comment on above: Performed By: #### C MP #### [facility] [place] [facility] [address] [place] [address] Dr. Dwight Waters Monocytes/100 WBC (Bld) 8.1 % Normal 1.7-12.0 [facility] Comment on above: Performed By: #### C MP #### [facility] [place] [facility] [address] [address] [address] Dwight Waters NEUT # 3.8 103/ul Normal 1.4-6.5 [facility] [place] Comment on above: Performed By: #### C MP #### [facility] [place] [facility] [address] [address] [address] Dwight Waters Neutrophils/100 WBC (Bld) 60.0 % Normal 43.0-75.0 [facility] Comment on above: Performed By: #### C MP #### [facility] [place] [facility] [address] [address] [address] Dwight Waters Platelet mean volume (Bld) [Entitic vol] 9.2 fL Critically low 9.5-13.5 [facility] [place] Comment on above: Performed By: #### C MP #### [facility] [place] [facility] [address] [place] [address] Dr. Dwight Waters PLT 225 103/ul Normal 150-450 [facility] [place] Comment on above: Performed By: #### C MP #### [facility] [place] [facility] [address] [place] [address] Dr. Dwight Waters RBC 5.64 106/ul Normal 4.70-6.10 [facility] Comment on above: Performed By: #### C MP #### [facility] [place] [facility] [address] [place] [address] Dr. Dwight Waters WBC 6.3 103/ul Normal 4.0-11.0 [facility] Comment on above: Performed By: #### C MP #### [facility] [place] [facility] [address] [place] [address] Dr. Dwight Waters GGTon 12-29-2022 Gamma glutamyl transferase [Catalytic activity/Vol] 24 U/L Normal 15-85 [facility] Comment on above: Performed By: #### C MP #### [facility] [place] [facility] [address] [place] [address] Dr. Dwight Waters LIPID PROFILEon 12-29-2022 CHOL-HDL RATIO NORM SEE BELOW Normal [facility] Comment on above: Result Comment: 3.3 - 4.4 LOW RISK 4.4 - 7.1 AVERAGE RISK 7.1 - 11.0 MODERATE RISK >11.0 HIGH RISK Performed By: #### U RTPCR #### [facility] [place] [facility] [address] [address] [address] Dwight Waters Cholesterol [Mass/Vol] 87 mg/dL Normal <=200 [facility] Comment on above: Performed By: #### U RTPCR #### [facility] [place] [facility] [address] [address] [address] Dwight Waters Cholesterol in HDL [Mass/Vol] 44 mg/dL Normal 40-60 [facility] Comment on above: Performed By: #### U RTPCR #### [facility] [place] [facility] [address] [address] [address] Dwight Waters Cholesterol in LDL [Mass/Vol] 33.0 mg/dL Normal [facility] Comment on above: Performed By: #### U RTPCR #### [facility] [place] [facility] [address] [address] [address] Dwight Waters Cholesterol.total/Cho lesterol in HDL [Mass ratio] 2.0 {ratio} Normal [facility] Comment on above: Performed By: #### U RTPCR #### [facility] [place] [facility] [address] [address] [address] Dwight Waters HDL NORMAL > or = 60 mg/dl - LO W CARDIOVASCULAR RISK <40 mg/dl - HIGH CARDIOVASCULAR RISK Normal [facility] Comment on above: Performed By: #### U RTPCR #### [facility] [place] [facility] [address] [address] [address] Dwight Waters LDL CALC NORMAL SEE BELOW Normal [facility] Comment on above: Result Comment: <100 mg/dl OPTIMAL 100 - 129 mg/dl NEAR OR ABOVE OPTIMAL 130 - 159 mg/dl BORDERLINE HIGH 160 - 189 mg/dl HIGH >190 mg/dl VERY HIGH Performed By: #### U RTPCR #### [facility] [place] [facility] [address] [address] [address] Dwight Waters Triglyceride [Mass/Vol] 50 mg/dL Normal <=150 [facility] Comment on above: Performed By: #### U RTPCR #### [facility] [place] [facility] [address] [address] [address] Dwight Waters VLDL CALC 10.0 mg/dL Normal [facility] Comment on above: Performed By: #### U RTPCR #### [facility] [place] [facility] [address] [place] [address] Dr. Dwight Waters MAGNESIUMon 12-29-2022 Magnesium [Mass/Vol] 1.6 mg/dL Critically low 1.8-2.4 [facility] Comment on above: Performed By: #### C BC #### [facility] [place] [facility] [address] [place] [address] Dr. Dwight Waters RENAL FUNCTION PANELon 12-29 Albumin [Mass/Vol] 3.9 g/dL Normal 3.4-5.0 [facility] Comment on above: Performed By: #### C BC #### [facility] [place] [facility] [address] [place] [address] Dr. Dwight Waters Calcium [Mass/Vol] 9.2 mg/dL Normal 8.5-10.1 [facility] Comment on above: Performed By: #### C BC #### [facility] [place] [facility] [address] [place] [address] Dr. Dwight Waters Chloride [Moles/Vol] 109 mmol/L Critically high 98-107 [facility] [place] Comment on above: Performed By: #### C BC #### [facility] [place] [facility] [address] [place] [address] Dr. Dwight Waters CO2 [Moles/Vol] 27.0 mmol/L Normal 21.0-32.0 [facility] Comment on above: Performed By: #### C BC #### [facility] [place] [facility] [address] [place] [address] Dr. Dwight Waters Creatinine [Mass/Vol] 1.02 mg/dL Normal 0.70-1.30 [facility] [place] Comment on above: Performed By: #### C BC #### [facility] [place] [facility] [address] [place] [address] Dr. Dwight Waters EGFR-AF INDIAN >60 Normal >=60 [facility] Comment on above: Performed By: #### C BC #### [facility] [place] [facility] [address] [place] [address] Dr. Dwight Waters EGFR-NON AF INDIAN >60 Normal >=60 [facility] Comment on above: Performed By: #### C BC #### [facility] [place] [facility] [address] [place] [address] Dr. Dwight Waters Glucose [Mass/Vol] 117 mg/dL Critically high 74-106 [facility] Comment on above: Performed By: #### C BC #### [facility] [place] [facility] [address] [address] [address] Dwight Waters Phosphate [Mass/Vol] 3.2 mg/dL Normal 2.6-4.7 [facility] Comment on above: Performed By: #### C BC #### [facility] [place] [facility] [address] [place] [address] Dr. Dwight Waters Potassium [Moles/Vol] 4.1 mmol/L Normal 3.5-5.1 [facility] Comment on above: Performed By: #### C BC #### [facility] [place] [facility] [address] [place] [address] Dr. Dwight Waters Sodium [Moles/Vol] 144 mmol/L Normal 136-145 [facility] Comment on above: Performed By: #### C BC #### [facility] [place] [facility] [address] [place] [address] Dr. Dwight Waters Urea nitrogen [Mass/Vol] 13.0 mg/dL Normal 7.0-18.0 [facility] Comment on above: Performed By: #### C BC #### [facility] [place] [facility] [address] [place] [address] Dr. Dwight Albert 12-29-2022 AST [Catalytic activity/Vol] 21 U/L Normal 15-37 [facility] Comment on above: Performed By: #### C BC #### [facility] [place] [facility] [address] [place] [address] Dr. Dwight Osei 12-29-2022 ALT [Catalytic activity/Vol] 32 U/L Normal 16-63 [facility] Comment on above: Performed By: #### C BC #### [facility] [place] [facility] [address] [place] [address] Dr. Dwight Waters URINE T PROTEIN CREAT RATIOo n 12-29-2022 Protein (U) [Mass/Vol] 14.3 mg/dL Critically high <=12.0 [facility] Comment on above: Performed By: #### U RTPCR #### [facility] [place] [facility] [address] [address] [address] Dwight Waters UR PROT CREAT RAT 0.17 Normal [facility] Comment on above: Performed By: #### U RTPCR #### [facility] [place] [facility] [address] [address] [address] Dwight Waters URINE CREAT 86.58 mg/dL Normal 20.00-300.00 [facility] Comment on above: Performed By: #### U RTPCR #### [facility] [place] [facility] [address] [address] [address] Dwight Waters FK506 (TACROLIMUS) WHOLE BLO ODon 11-06-2022 Tacrolimus (FK506), Blood 4.9 ng/mL Normal 2.0-20.0 [facility] Comment on above: Result Comment: Trou gh (immediately following transplant) 15.0 . Trough (steady state, 2 weeks or more after transplant): 3.0 - 8.0 . Performed by LC-MS/MS technology. Performed By: #### U RTPCR #### [facility] [place] [facility] [address] [place] [address] Dr. Dwight Waters ALKALINE PHOSPHAon ALP [Catalytic activity/Vol] 86 U/L Normal 46-116 [facility] [place] Comment on above: Performed By: #### U RTPCR #### [facility] [place] [facility] [address] [address] [address] Dwight Waters BILIRUBIN CONJUGATED (DIRECT )on 11-04-2022 BILI, CONJUGATED 0.2 mg/dL Normal 0.0-0.2 [facility] Comment on above: Performed By: #### U RTPCR #### [facility] [address] [place] [address] Dr. Dwight Waters BILIRUBIN TOTALon 11-04-2022 Bilirubin [Mass/Vol] 0.8 mg/dL Normal 0.2-1.0 [facility] Comment on above: Performed By: #### U RTPCR #### [facility] [place] [facility] [address] [address] [address] Dwight Waters CBC AUTO DIFFon 11-04-2022 BASO # 0.1 103/ul Normal 0.0-0.1 [facility] Comment on above: Performed By: #### U RTPCR #### [facility] [place] [facility] [address] [place] [address] Dr. Dwight Waters Basophils/100 WBC (Bld) 0.9 % Normal 0.2-2.0 [facility] Comment on above: Performed By: #### U RTPCR #### [facility] [address] [place] [address] Dr. Dwight Waters EO # 0.2 103/ul Normal 0.0-0.7 [facility] Comment on above: Performed By: #### U RTPCR #### [facility] [place] [facility] [address] [place] [address] Dr. Dwight Waters Eosinophils/100 WBC (Bld) 3.7 % Normal 0.9-7.0 [facility] Comment on above: Performed By: #### U RTPCR #### [facility] [place] [facility] [address] [place] [address] Dr. Dwight Waters Erythrocyte distribution width (RBC) [Ratio] 12.9 % Normal 11.0-15.0 [facility] Comment on above: Performed By: #### U RTPCR #### [facility] [address] [place] [address] Dr. Dwight Waters Hematocrit (Bld) [Volume fraction] 48.3 % Normal 42.0-54.0 [facility] Comment on above: Performed By: #### U RTPCR #### [facility] [place] [facility] [address] [place] [address] Dr. Dwight Waters Hemoglobin (Bld) [Mass/Vol] 15.6 g/dL Normal 14.0-18.0 [facility] Comment on above: Performed By: #### U RTPCR #### [facility] [address] [place] [address] Dr. Dwight Waters IG # 0.01 10e3/ul Normal 0.00-0.03 [facility] Comment on above: Performed By: #### U RTPCR #### [facility] [address] [place] [address] Dr. Dwight Waters IG % 0.2 % Normal 0.0-0.5 [facility] Comment on above: Performed By: #### U RTPCR #### [facility] [address] [place] [address] Dr. Dwight Waters LYMPH # 1.9 103/ul Normal 1.2-3.8 [facility] Comment on above: Performed By: #### U RTPCR #### [facility] [place] [facility] [address] [place] [address] Dr. Dwight Waters Lymphocytes/100 WBC (Bld) 33.0 % Normal 20.5-60.0 [facility] Comment on above: Performed By: #### U RTPCR #### [facility] [address] [place] [address] Dr. Dwight Waters MANUAL DIFF REQ NO Normal [facility] Comment on above: Performed By: #### U RTPCR #### [facility] [address] [place] [address] Dr. Dwight Waters MCH (RBC) [Entitic mass] 27.6 pg Normal 25.9-34.0 [facility] Comment on above: Performed By: #### U RTPCR #### [facility] [place] [facility] [address] [place] [address] Dr. Dwight Waters MCHC (RBC) [Mass/Vol] 32.3 g/dL Normal 29.9-35.2 [facility] Comment on above: Performed By: #### U RTPCR #### [facility] [place] [facility] [address] [place] [address] Dr. Dwight Waters MCV (RBC) [Entitic vol] 85.5 fL Normal 80.0-94.0 [facility] Comment on above: Performed By: #### U RTPCR #### [facility] [place] [facility] [address] [place] [address] Dr. Dwight Waters MONO # 0.5 103/ul Normal 0.3-0.8 [facility] Comment on above: Performed By: #### U RTPCR #### [facility] [place] [facility] [address] [address] [address] Dwight Waters Monocytes/100 WBC (Bld) 8.8 % Normal 1.7-12.0 [facility] Comment on above: Performed By: #### U RTPCR #### [facility] [place] [facility] [address] [address] [address] Dwight Waters NEUT # 3.1 103/ul Normal 1.4-6.5 [facility] Comment on above: Performed By: #### U RTPCR #### [facility] [place] [facility] [address] [address] [address] Dwight Waters Neutrophils/100 WBC (Bld) 53.4 % Normal 43.0-75.0 [facility] Comment on above: Performed By: #### U RTPCR #### [facility] [place] [facility] [address] [place] [address] Dr. Dwight Waters Platelet mean volume (Bld) [Entitic vol] 9.2 fL Critically low 9.5-13.5 [facility] Comment on above: Performed By: #### U RTPCR #### [facility] [place] [facility] [address] [place] [address] Dr. Dwight Waters PLT 255 103/ul Normal 150-450 [facility] Comment on above: Performed By: #### U RTPCR #### [facility] [place] [facility] [address] [place] [address] Dr. Dwight Waters RBC 5.65 106/ul Normal 4.70-6.10 [facility] [place] Comment on above: Performed By: #### U RTPCR #### [facility] [place] [facility] [address] [place] [address] Dr. Dwight Waters WBC 5.7 103/ul Normal 4.0-11.0 [facility] Comment on above: Performed By: #### U RTPCR #### [facility] [place] [facility] [address] [place] [address] Dr. Dwight Waters GGTon 11-04-2022 Gamma glutamyl transferase [Catalytic activity/Vol] 22 U/L Normal 15-85 [facility] Comment on above: Performed By: #### U RTPCR #### [facility] [place] [facility] [address] [address] [address] Dwight Waters MAGNESIUMon 11-04-2022 Magnesium [Mass/Vol] 1.8 mg/dL Normal 1.8-2.4 [facility] Comment on above: Performed By: #### U RTPCR #### [facility] [address] [place] [address] Dr. Dwight Waters RENAL FUNCTION PANELon 11-04 Albumin [Mass/Vol] 3.8 g/dL Normal 3.4-5.0 [facility] Comment on above: Performed By: #### U RTPCR #### [facility] [place] [facility] [address] [place] [address] Dr. Dwight Waters Calcium [Mass/Vol] 9.3 mg/dL Normal 8.5-10.1 [facility] Comment on above: Performed By: #### U RTPCR #### [facility] [address] [place] [address] Dr. Dwight Waters Chloride [Moles/Vol] 107 mmol/L Normal 98-107 [facility] Comment on above: Performed By: #### U RTPCR #### [facility] [address] [place] [address] Dr. Dwight Waters CO2 [Moles/Vol] 29.2 mmol/L Normal 21.0-32.0 [facility] Comment on above: Performed By: #### U RTPCR #### [facility] [place] [facility] [address] [place] [address] Dr. Dwight Waters Creatinine [Mass/Vol] 1.07 mg/dL Normal 0.70-1.30 [facility] [place] Comment on above: Performed By: #### U RTPCR #### [facility] [place] [facility] [address] [place] [address] Dr. Dwight Waters EGFR-AF INDIAN >60 Normal >=60 [facility] Comment on above: Performed By: #### U RTPCR #### [facility] [address] [place] [address] Dr. Dwight Waters EGFR-NON AF INDIAN >60 Normal >=60 [facility] Comment on above: Performed By: #### U RTPCR #### [facility] [place] [facility] [address] [place] [address] Dr. Dwight Waters Glucose [Mass/Vol] 106 mg/dL Normal 74-106 [facility] Comment on above: Performed By: #### U RTPCR #### [facility] [address] [place] [address] Dr. Dwight Waters Phosphate [Mass/Vol] 2.8 mg/dL Normal 2.6-4.7 [facility] Comment on above: Performed By: #### U RTPCR #### [facility] [place] [facility] [address] [place] [address] Dr. Dwight Waters Potassium [Moles/Vol] 4.1 mmol/L Normal 3.5-5.1 [facility] Comment on above: Performed By: #### U RTPCR #### [facility] [place] [facility] [address] [place] [address] Dr. Dwight Waters Sodium [Moles/Vol] 143 mmol/L Normal 136-145 [facility] Comment on above: Performed By: #### U RTPCR #### [facility] [place] [facility] [address] [place] [address] Dr. Dwight Waters Urea nitrogen [Mass/Vol] 12.0 mg/dL Normal 7.0-18.0 [facility] Comment on above: Performed By: #### U RTPCR #### [facility] [address] [place] [address] Dr. Dwight Albert 11-04-2022 AST [Catalytic activity/Vol] 19 U/L Normal 15-37 [facility] Comment on above: Performed By: #### U RTPCR #### [facility] [place] [facility] [address] [place] [address] Dr. Dwight Osei 11-04-2022 ALT [Catalytic activity/Vol] 28 U/L Normal 16-63 [facility] Comment on above: Performed By: #### U RTPCR #### [facility] [address] [place] [address] Dr. Dwight Waters URINE T PROTEIN CREAT RATIOo n 11-04-2022 Protein (U) [Mass/Vol] 10.7 mg/dL Normal <=12.0 [facility] Comment on above: Performed By: #### U RTPCR #### [facility] [address] [place] [address] Dr. Dwight Waters UR PROT CREAT RAT 0.13 Normal [facility] Comment on above: Performed By: #### U RTPCR #### [facility] [address] [address] [address] Dwight Waters URINE CREAT 84.50 mg/dL Normal 20.00-300.00 [facility] Comment on above: Performed By: #### U RTPCR #### [facility] [address] [place] [address] Dr. Dwight Waters FK506 (TACROLIMUS) WHOLE BLO ODon 09-18-2022 Tacrolimus (FK506), Blood 4.6 ng/mL Normal 2.0-20.0 [facility] Comment on above: Result Comment: Trou gh (immediately following transplant) 15.0 . Trough (steady state, 2 weeks or more after transplant): 3.0 - 8.0 . Performed by LC-MS/MS technology. Performed By: #### U RTPCR #### [facility] [address] [place] [address] Dr. Dwight Waters BK VIRUS PCR QUANTon 022 BKV DNA QUANT PCR PLASMA Negative Normal Negative [facility] Comment on above: Result Comment: No B K DNA detected. . The linear range of the assay is 22 - 100,000,000 IU/mL. Performed By: #### U RTPCR #### [facility] [address] [place] [address] Dr. Dwight Waters Log10 BKV DNA Plasma Normal [facility] Comment on above: Performed By: #### U RTPCR #### [facility] [address] [place] [address] Dr. Dwight Waters ALKALINE PHOSPHAon 2 ALP [Catalytic activity/Vol] 92 U/L Normal 46-116 [facility] Comment on above: Performed By: #### U RTPCR #### [facility] [address] [place] [address] Dr. Dwight Waters BILIRUBIN CONJUGATED (DIRECT )on 09-15-2022 BILI, CONJUGATED 0.3 mg/dL Critically high 0.0-0.2 [facility] Comment on above: Performed By: #### U RTPCR #### [facility] [address] [place] [address] Dr. Dwight Waters BILIRUBIN TOTALon 09-15-2022 Bilirubin [Mass/Vol] 1.1 mg/dL Critically high 0.2-1.0 [facility] Comment on above: Performed By: #### U RTPCR #### [facility] [address] [place] [address] Dr. Dwight Waters CBC AUTO DIFFon 09-15-2022 BASO # 0.1 103/ul Normal 0.0-0.1 [facility] Comment on above: Performed By: #### C BC #### [facility] [address] [place] [address] Dr. Dwight Waters Basophils/100 WBC (Bld) 0.8 % Normal 0.2-2.0 [facility] Comment on above: Performed By: #### C BC #### [facility] [address] [place] [address] Dr. Dwight Waters EO # 0.2 103/ul Normal 0.0-0.7 [facility] Comment on above: Performed By: #### C BC #### [facility] [address] [place] [address] Dr. Dwight Waters Eosinophils/100 WBC (Bld) 3.5 % Normal 0.9-7.0 [facility] Comment on above: Performed By: #### C BC #### [facility] [address] [place] [address] Dr. Dwight Waters Erythrocyte distribution width (RBC) [Ratio] 13.0 % Normal 11.0-15.0 [facility] Comment on above: Performed By: #### C BC #### [facility] [address] [place] [address] Dr. Dwight Waters Hematocrit (Bld) [Volume fraction] 50.0 % Normal 42.0-54.0 [facility] Comment on above: Performed By: #### C BC #### [facility] [address] [place] [address] Dr. Dwight Waters Hemoglobin (Bld) [Mass/Vol] 16.0 g/dL Normal 14.0-18.0 [facility] Comment on above: Performed By: #### C BC #### [facility] [address] [place] [address] Dr. Dwight Waters IG # 0.02 10e3/ul Normal 0.00-0.03 [facility] [facility] Comment on above: Performed By: #### C BC #### [facility] [address] [place] [address] Dr. Dwight Waters IG % 0.3 % Normal 0.0-0.5 [facility] Comment on above: Performed By: #### C BC #### [facility] [address] [place] [address] Dr. Dwight Waters LYMPH # 1.8 103/ul Normal 1.2-3.8 [facility] Comment on above: Performed By: #### C BC #### [facility] [address] [place] [address] Dr. Dwight Waters Lymphocytes/100 WBC (Bld) 26.5 % Normal 20.5-60.0 [facility] Comment on above: Performed By: #### C BC #### [facility] [address] [place] [address] Dr. Dwight Waters MANUAL DIFF REQ NO Normal [facility] Comment on above: Performed By: #### C BC #### [facility] [address] [place] [address] Dr. Dwight Waters MCH (RBC) [Entitic mass] 28.1 pg Normal 25.9-34.0 [facility] Comment on above: Performed By: #### C BC #### [facility] [address] [place] [address] Dr. Dwight Wtaers MCHC (RBC) [Mass/Vol] 32.0 g/dL Normal 29.9-35.2 [facility] Comment on above: Performed By: #### C BC #### [facility] [address] [address] [address] Dwight Waters MCV (RBC) [Entitic vol] 87.9 fL Normal 80.0-94.0 [facility] Comment on above: Performed By: #### C BC #### [facility] [address] [address] [address] Dwight Waters MONO # 0.5 103/ul Normal 0.3-0.8 [facility] Comment on above: Performed By: #### C BC #### [facility] [address] [address] [address] Dwight Waters Monocytes/100 WBC (Bld) 8.1 % Normal 1.7-12.0 [facility] Comment on above: Performed By: #### C BC #### [facility] [address] [address] [address] Dwight Waters NEUT # 4.0 103/ul Normal 1.4-6.5 [facility] Comment on above: Performed By: #### C BC #### [facility] [address] [address] [address] Dwight Waters Neutrophils/100 WBC (Bld) 60.8 % Normal 43.0-75.0 [facility] Comment on above: Performed By: #### C BC #### [facility] [address] [address] [address] Dwight Waters Platelet mean volume (Bld) [Entitic vol] 9.4 fL Critically low 9.5-13.5 [facility] Comment on above: Performed By: #### C BC #### [facility] [address] [address] [address] Dwight Waters PLT 265 103/ul Normal 150-450 [facility] Comment on above: Performed By: #### C BC #### [facility] [address] [address] [address] Dwight Waters RBC 5.69 106/ul Normal 4.70-6.10 [facility] Comment on above: Performed By: #### C BC #### [facility] [address] [place] [address] Dr. Dwight Waters WBC 6.6 103/ul Normal 4.0-11.0 [facility] Comment on above: Performed By: #### C BC #### [facility] [address] [place] [address] Dr. Dwight Waters GGTon 09-15-2022 Gamma glutamyl transferase [Catalytic activity/Vol] 23 U/L Normal 15-85 [facility] Comment on above: Performed By: #### U RTPCR #### [facility] [address] [place] [address] Dr. Dwight Waters MAGNESIUMon 09-15-2022 Magnesium [Mass/Vol] 1.8 mg/dL Normal 1.8-2.4 [facility] Comment on above: Performed By: #### U RTPCR #### [facility] [address] [place] [address] Dr. Dwight Waters RENAL FUNCTION PANELon 09-15 Albumin [Mass/Vol] 4.1 g/dL Normal 3.4-5.0 [facility] Comment on above: Performed By: #### C BC #### [facility] [address] [place] [address] Dr. Dwight Waters Calcium [Mass/Vol] 9.3 mg/dL Normal 8.5-10.1 [facility] Comment on above: Performed By: #### C BC #### [facility] [address] [place] [address] Dr. Dwight Waters Chloride [Moles/Vol] 107 mmol/L Normal 98-107 [facility] Comment on above: Performed By: #### C BC #### [facility] [address] [place] [address] Dr. Dwight Waters CO2 [Moles/Vol] 25.6 mmol/L Normal 21.0-32.0 [facility] Comment on above: Performed By: #### C BC #### [facility] [address] [place] [address] Dr. Dwight Waters Creatinine [Mass/Vol] 1.01 mg/dL Normal 0.70-1.30 [facility] Comment on above: Performed By: #### C BC #### [facility] [address] [place] [address] Dr. Dwight Waters EGFR-AF INDIAN >60 Normal >=[address] [facility] Comment on above: Performed By: #### C BC #### [facility] [address] [address] [address] Dwight Waters EGFR-NON AF INDIAN >60 Normal >=60 [facility] Comment on above: Performed By: #### C BC #### [facility] [address] [address] [address] Dwight Waters Glucose [Mass/Vol] 119 mg/dL Critically high 74-106 [facility] Comment on above: Performed By: #### C BC #### [facility] [address] [place] [address] Dr. Dwight Waters Phosphate [Mass/Vol] 2.8 mg/dL Normal 2.6-4.7 [facility] Comment on above: Performed By: #### C BC #### [facility] [address] [place] [address] Dr. Dwight Waters Potassium [Moles/Vol] 4.0 mmol/L Normal 3.5-5.1 [facility] Comment on above: Performed By: #### C BC #### [facility] [address] [place] [address] Dr. Dwight Waters Sodium [Moles/Vol] 141 mmol/L Normal 136-145 [facility] Comment on above: Performed By: #### C BC #### [facility] [address] [place] [address] Dr. Dwight Waters Urea nitrogen [Mass/Vol] 15.0 mg/dL Normal 7.0-18.0 [facility] Comment on above: Performed By: #### C BC #### [facility] [address] [place] [address] Dr. Dwight Waters SGOTon 09-15-2022 AST [Catalytic activity/Vol] 18 U/L Normal 15-37 [facility] Comment on above: Performed By: #### U RTPCR #### [facility] [address] [address] [address] Dwight Waters SGPTon 09-15-2022 ALT [Catalytic activity/Vol] 32 U/L Normal 16-63 [facility] Comment on above: Performed By: #### C BC #### [facility] [address] [place] [address] Dr. Dwight Waters URINE T PROTEIN CREAT RATIOo n 09-15-2022 Protein (U) [Mass/Vol] 14.1 mg/dL Critically high <=12.0 [facility] Comment on above: Performed By: #### U RTPCR #### [facility] [address] [place] [address] Dr. Dwight Waters UR PROT CREAT RAT 0.14 Normal [facility] Comment on above: Performed By: #### U RTPCR #### [facility] [address] [place] [address] Dr. Dwight Waters URINE CREAT 98.89 mg/dL Normal 20.00-300.00 [facility] Comment on above: Performed By: #### U RTPCR #### [facility] [address] [place] [address] Dr. Dwight Waters US CAROTID ART BILon 022 US CAROTID ART ROSALINDA EXAMINATION: US [...] Date: 2022-08-28 13:20 Normal [facility] FK506 (TACROLIMUS) WHOLE BLO ODon 08-17-2022 Tacrolimus (FK506), Blood 9.9 ng/mL Normal 2.0-20.0 [facility] Comment on above: Result Comment: Trou gh (immediately following transplant) 15.0 . Trough (steady state, 2 weeks or more after transplant): 3.0 - 8.0 . Performed by LC-MS/MS technology. Performed By: #### F [id number] #### [facility] [address] [place] [address] Dr. Dwight Waters BK VIRUS PCR QUANTon 022 BKV DNA QUANT PCR PLASMA Negative Normal Negative [facility] Comment on above: Result Comment: No B K DNA detected. . The linear range of the assay is 22 - 100,000,000 IU/mL. Performed By: #### U RTPCR #### [facility] [address] [place] [address] Dr. Dwight Waters Log10 BKV DNA Plasma Normal [facility] Comment on above: Performed By: #### U RTPCR #### [facility] [address] [place] [address] Dr. Dwight Waters ALBUMINon 08-14-2022 Albumin [Mass/Vol] 4.2 g/dL Normal 3.4-5.0 [facility] Comment on above: Performed By: #### F [id number] #### [facility] [address] [place] [address] Dr. Dwight Waters ALKALINE PHOSPHAon ALP [Catalytic activity/Vol] 92 U/L Normal 46-116 [facility] Comment on above: Performed By: #### C BC #### [facility] [address] [place] [address] Dr. Dwight Waters BILIRUBIN CONJUGATED (DIRECT )on 08-14-2022 BILI, CONJUGATED 0.3 mg/dL Critically high 0.0-0.2 [facility] Comment on above: Performed By: #### F [id number] #### [facility] [address] [place] [address] Dr. Dwight Waters BILIRUBIN TOTALon 08-14-2022 Bilirubin [Mass/Vol] 1.5 mg/dL Critically high 0.2-1.0 [facility] Comment on above: Performed By: #### F [id number] #### [facility] [address] [place] [address] Dr. Dwight Waters BUNon 08-14-2022 Urea nitrogen [Mass/Vol] 11.0 mg/dL Normal 7.0-18.0 [facility] Comment on above: Performed By: #### C BC #### [facility] [address] [place] [address] Dr. Dwight Waters CALCIUMon 08-14-2022 Calcium [Mass/Vol] 9.4 mg/dL Normal 8.5-10.1 [facility] Comment on above: Performed By: #### F [id number] #### [facility] [address] [place] [address] Dr. Dwight Waters CBC AUTO DIFFon 08-14-2022 BASO # 0.0 103/ul Normal 0.0-0.1 [facility] Comment on above: Performed By: #### C MP #### [facility] [address] [place] [address] Dr. Dwight Waters Basophils/100 WBC (Bld) 0.5 % Normal 0.2-2.0 [facility] Comment on above: Performed By: #### C MP #### [facility] [address] [place] [address] Dr. Dwight Waters EO # 0.2 103/ul Normal 0.0-0.7 [facility] Comment on above: Performed By: #### C MP #### [facility] [address] [place] [address] Dr. Dwight Waters Eosinophils/100 WBC (Bld) 2.6 % Normal 0.9-7.0 [facility] Comment on above: Performed By: #### C MP #### [facility] [address] [place] [address] Dr. Dwight Waters Erythrocyte distribution width (RBC) [Ratio] 13.1 % Normal 11.0-15.0 [facility] Comment on above: Performed By: #### C MP #### [facility] [address] [place] [address] Dr. Dwight Waters Hematocrit (Bld) [Volume fraction] 47.0 % Normal 42.0-54.0 [facility] Comment on above: Performed By: #### C MP #### [facility] [address] [place] [address] Dr. Dwight Waters Hemoglobin (Bld) [Mass/Vol] 15.3 g/dL Normal 14.0-18.0 [facility] Comment on above: Performed By: #### C MP #### [facility] [address] [place] [address] Dr. Dwight Waters IG # 0.01 10e3/ul Normal 0.00-0.03 [facility] Comment on above: Performed By: #### C MP #### [facility] [address] [place] [address] Dr. Dwight Waters IG % 0.1 % Normal 0.0-0.5 [facility] Comment on above: Performed By: #### C MP #### [facility] [address] [place] [address] Dr. Dwight Waters LYMPH # 2.3 103/ul Normal 1.2-3.8 [facility] Comment on above: Performed By: #### C MP #### [facility] [address] [place] [address] Dr. Dwight Waters Lymphocytes/100 WBC (Bld) 29.8 % Normal 20.5-60.0 [facility] Comment on above: Performed By: #### C MP #### [facility] [address] [place] [address] Dr. Dwight Waters MANUAL DIFF REQ NO Normal [facility] Comment on above: Performed By: #### C MP #### [facility] [address] [place] [address] Dr. Dwight Waters MCH (RBC) [Entitic mass] 28.2 pg Normal 25.9-34.0 [facility] Comment on above: Performed By: #### C MP #### [facility] [address] [place] [address] Dr. Dwight Waters MCHC (RBC) [Mass/Vol] 32.6 g/dL Normal 29.9-35.2 [facility] Comment on above: Performed By: #### C MP #### [facility] [address] [place] [address] Dr. Dwight Waters MCV (RBC) [Entitic vol] 86.7 fL Normal 80.0-94.0 [facility] Comment on above: Performed By: #### C MP #### [facility] [address] [place] [address] Dr. Dwight Waters MONO # 0.7 103/ul Normal 0.3-0.8 [facility] Comment on above: Performed By: #### C MP #### [facility] [address] [place] [address] Dr. Dwight Waters Monocytes/100 WBC (Bld) 8.5 % Normal 1.7-12.0 [facility] Comment on above: Performed By: #### C MP #### [facility] [address] [place] [address] Dr. Dwight Waters NEUT # 4.5 103/ul Normal 1.4-6.5 [facility] Comment on above: Performed By: #### C MP #### [facility] [address] [place] [address] Dr. Dwight Waters Neutrophils/100 WBC (Bld) 58.5 % Normal 43.0-75.0 [facility] Comment on above: Performed By: #### C MP #### [facility] [address] [place] [address] Dr. Dwight Waters Platelet mean volume (Bld) [Entitic vol] 9.7 fL Normal 9.5-13.5 [facility] Comment on above: Performed By: #### C MP #### [facility] [address] [place] [address] Dr. Dwight Waters PLT 266 103/ul Normal 150-450 [facility] Comment on above: Performed By: #### C MP #### [facility] [address] [place] [address] Dr. Dwight Waters RBC 5.42 106/ul Normal 4.70-6.10 [facility] Comment on above: Performed By: #### C MP #### [facility] [address] [place] [address] Dr. Dwight Waters WBC 7.6 103/ul Normal 4.0-11.0 [facility] Comment on above: Performed By: #### C MP #### [facility] [address] [place] [address] Dr. Dwight Waters CHLORIDEon 08-14-2022 Chloride [Moles/Vol] 104 mmol/L Normal 98-107 [facility] Comment on above: Performed By: #### C BC #### [facility] [address] [place] [address] Dr. Dwight Waters CO2on 08-14-2022 CO2 [Moles/Vol] 27.9 mmol/L Normal 21.0-32.[address] [facility] Comment on above: Performed By: #### C BC #### [facility] [address] [place] [address] Dr. Dwight Waters CREATININEon 08-14-2022 Creatinine [Mass/Vol] 1.08 mg/dL Normal 0.70-1.30 [facility] Comment on above: Performed By: #### C BC #### [facility] [address] [place] [address] Dr. Dwight Waters EGFR-AF INDIAN >60 Normal >=[address] [facility] Comment on above: Performed By: #### C BC #### [facility] [address] [place] [address] Dr. Dwight Waters EGFR-NON AF INDIAN >60 Normal >=60 [facility] Comment on above: Performed By: #### C BC #### [facility] [address] [place] [address] Dr. Dwight Waters GGTon 08-14-2022 Gamma glutamyl transferase [Catalytic activity/Vol] 24 U/L Normal 15-85 [facility] Comment on above: Performed By: #### F [id number] #### [facility] [address] [place] [address] Dr. Dwigth Waters GLUCOSE BLOODon 08-14-2022 Glucose [Mass/Vol] 111 mg/dL Critically high 74-106 [facility] Comment on above: Performed By: #### C BC #### [facility] [address] [place] [address] Dr. Dwight Waters MAGNESIUMon 08-14-2022 Magnesium [Mass/Vol] 1.4 mg/dL Critically low 1.8-2.4 [facility] Comment on above: Performed By: #### C BC #### [facility] [address] [place] [address] Dr. Dwight Waters NAon 08-14-2022 Sodium [Moles/Vol] 140 mmol/L Normal 136-145 [facility] Comment on above: Performed By: #### F [id number] #### [facility] [address] [place] [address] Dr. Dwight Waters PHOSPHORUSon 08-14-2022 Phosphate [Mass/Vol] 3.1 mg/dL Normal 2.6-4.7 [facility] Comment on above: Performed By: #### C BC #### [facility] [address] [place] [address] Dr. Dwight Waters POTASSIUMon 08-14-2022 Potassium [Moles/Vol] 3.5 mmol/L Normal 3.5-5.1 [facility] Comment on above: Performed By: #### C BC #### [facility] [address] [place] [address] Dr. Dwight Albert 08-14-2022 AST [Catalytic activity/Vol] 17 U/L Normal 15-37 [facility] Comment on above: Performed By: #### F [id number] #### [facility] [address] [place] [address] Dr. Dwight Waters SGPTon 08-14-2022 ALT [Catalytic activity/Vol] 22 U/L Normal 16-63 [facility] Comment on above: Performed By: #### F [id number] #### [facility] [address] [place] [address] Dr. Dwight Waters URINE T PROTEIN CREAT RATIOo n 08-14-2022 Protein (U) [Mass/Vol] 10.7 mg/dL Normal <=12.0 [facility] Comment on above: Performed By: #### F [id number] #### [facility] [address] [place] [address] Dr. Dwight Waters UR PROT CREAT RAT 0.10 Normal [facility] Comment on above: Performed By: #### F [id number] #### [facility] [address] [address] [address] Dwight Waters URINE CREAT 104.28 mg/dL Normal 20.00-300.00 [facility] Comment on above: Performed By: #### F [id number] #### [facility] [address] [id number] [address] Dwight Waters NEPHROSTOMY TUBE REMOVALon 0 [...] Assisting physician present for entire procedure: yes [facility] Radiology Study observation (narrative) [facility] FK506 (TACROLIMUS) WHOLE BLO ODon 07-06-2022 Tacrolimus (FK506), Blood 9.5 ng/mL Normal 2.0-20.0 [facility] Comment on above: Result Comment: Trou gh (immediately following transplant) 15.0 . Trough (steady state, 2 weeks or more after transplant): 3.0 - 8.0 . Performed by LC-MS/MS technology. Performed By: #### C MP #### [facility] [address] [place] [address] Dr. Dwight Waters ALBUMINon 07-03-2022 Albumin [Mass/Vol] 3.7 g/dL Normal 3.4-5.0 [facility] Comment on above: Performed By: #### U RTPCR #### [facility] [address] [place] [address] Dr. Dwight Waters ALKALINE PHOSPHAon ALP [Catalytic activity/Vol] 76 U/L Normal 46-116 [facility] Comment on above: Performed By: #### U RTPCR #### [facility] [address] [place] [address] Dr. Dwight Waters BILIRUBIN CONJUGATED (DIRECT )on 07-03-2022 BILI, CONJUGATED 0.3 mg/dL Critically high 0.0-0.2 [facility] Comment on above: Performed By: #### C BC #### [facility] [address] [place] [address] Dr. Dwight Waters BILIRUBIN TOTALon 07-03-2022 Bilirubin [Mass/Vol] 1.4 mg/dL Critically high 0.2-1.0 [facility] Comment on above: Performed By: #### C BC #### [facility] [address] [place] [address] Dr. Dwight Waters BUNon 07-03-2022 Urea nitrogen [Mass/Vol] 15.0 mg/dL Normal 7.0-18.0 [facility] Comment on above: Performed By: #### C BC #### [facility] [address] [place] [address] Dr. Dwight Waters CALCIUMon 07-03-2022 Calcium [Mass/Vol] 9.4 mg/dL Normal 8.5-10.1 [facility] Comment on above: Performed By: #### U RTPCR #### [facility] [address] [place] [address] Dr. Dwight Waters CBC AUTO DIFFon 07-03-2022 BASO # 0.0 103/ul Normal 0.0-0.1 [facility] Comment on above: Performed By: #### U RTPCR #### [facility] [address] [place] [address] Dr. Dwight Waters Basophils/100 WBC (Bld) 0.6 % Normal 0.2-2.0 [facility] Comment on above: Performed By: #### U RTPCR #### [facility] [address] [place] [address] Dr. wDight Waters EO # 0.2 103/ul Normal 0.0-0.7 [facility] Comment on above: Performed By: #### U RTPCR #### [facility] [address] [place] [address] Dr. Dwight Waters Eosinophils/100 WBC (Bld) 3.5 % Normal 0.9-7.0 [facility] Comment on above: Performed By: #### U RTPCR #### [facility] [address] [place] [address] Dr. Dwight Waters Erythrocyte distribution width (RBC) [Ratio] 12.9 % Normal 11.0-15.0 [facility] Comment on above: Performed By: #### U RTPCR #### [facility] [address] [place] [address] Dr. Dwight Waters Hematocrit (Bld) [Volume fraction] 44.2 % Normal 42.0-54.0 [facility] Comment on above: Performed By: #### U RTPCR #### [facility] [address] [place] [address] Dr. Dwight Waters Hemoglobin (Bld) [Mass/Vol] 14.6 g/dL Normal 14.0-18.0 [facility] Comment on above: Performed By: #### U RTPCR #### [facility] [address] [place] [address] Dr. Dwight Waters IG # 0.02 10e3/ul Normal 0.00-0.03 [facility] Comment on above: Performed By: #### U RTPCR #### [facility] [address] [place] [address] Dr. Dwight Waters IG % 0.3 % Normal 0.0-0.5 [facility] Comment on above: Performed By: #### U RTPCR #### [facility] [address] [place] [address] Dr. Dwight Waters LYMPH # 2.0 103/ul Normal 1.2-3.8 [facility] Comment on above: Performed By: #### U RTPCR #### [facility] [address] [place] [address] Dr. Dwight Waters Lymphocytes/100 WBC (Bld) 28.4 % Normal 20.5-60.0 [facility] Comment on above: Performed By: #### U RTPCR #### [facility] [address] [place] [address] Dr. Dwight Waters MANUAL DIFF REQ NO Normal [facility] [facility] Comment on above: Performed By: #### U RTPCR #### [facility] [address] [place] [address] Dr. Dwight Waters MCH (RBC) [Entitic mass] 28.6 pg Normal 25.9-34.0 [facility] Comment on above: Performed By: #### U RTPCR #### [facility] [address] [place] [address] Dr. Dwight Waters MCHC (RBC) [Mass/Vol] 33.0 g/dL Normal 29.9-35.2 [facility] Comment on above: Performed By: #### U RTPCR #### [facility] [address] [place] [address] Dr. Dwight Waters MCV (RBC) [Entitic vol] 86.7 fL Normal 80.0-94.0 [facility] Comment on above: Performed By: #### U RTPCR #### [facility] [address] [place] [address] Dr. Dwight Waters MONO # 0.6 103/ul Normal 0.3-0.8 [facility] Comment on above: Performed By: #### U RTPCR #### [facility] [address] [place] [address] Dr. Dwight Waters Monocytes/100 WBC (Bld) 9.1 % Normal 1.7-12.0 [facility] Comment on above: Performed By: #### U RTPCR #### [facility] [address] [place] [address] Dr. Dwight Waters NEUT # 4.0 103/ul Normal 1.4-6.5 [facility] Comment on above: Performed By: #### U RTPCR #### [facility] [address] [place] [address] Dr. Dwight Waters Neutrophils/100 WBC (Bld) 58.1 % Normal 43.0-75.0 [facility] Comment on above: Performed By: #### U RTPCR #### [facility] [address] [place] [address] Dr. Dwight Waters Platelet mean volume (Bld) [Entitic vol] 9.5 fL Normal 9.5-13.5 [facility] Comment on above: Performed By: #### U RTPCR #### [facility] [address] [place] [address] Dr. Dwight Waters PLT 292 103/ul Normal 150-450 [facility] Comment on above: Performed By: #### U RTPCR #### [facility] [address] [place] [address] Dr. Dwight Waters RBC 5.10 106/ul Normal 4.70-6.10 [facility] Comment on above: Performed By: #### U RTPCR #### [facility] [address] [place] [address] Dr. Dwight Waters WBC 6.9 103/ul Normal 4.0-11.0 [facility] Comment on above: Performed By: #### U RTPCR #### [facility] [address] [place] [address] Dr. Dwight Waters CHLORIDEon 07-03-2022 Chloride [Moles/Vol] 108 mmol/L Critically high 98-107 [facility] Comment on above: Performed By: #### C BC #### [facility] [address] [place] [address] Dr. Dwight Waters CO2on 07-03-2022 CO2 [Moles/Vol] 25.2 mmol/L Normal 21.0-32.[address] [facility] Comment on above: Performed By: #### C BC #### [facility] [address] [address] [address] Dwight Waters CREATININEon 07-03-2022 Creatinine [Mass/Vol] 1.03 mg/dL Normal 0.70-1.30 [facility] Comment on above: Performed By: #### U RTPCR #### [facility] [address] [address] [address] Dwight Waters EGFR-AF INDIAN >60 Normal >=[address] [facility] Comment on above: Performed By: #### U RTPCR #### [facility] [address] [place] [address] Dr. Dwight Waters EGFR-NON AF INDIAN >60 Normal >=60 [facility] Comment on above: Performed By: #### U RTPCR #### [facility] [address] [place] [address] Dr. Dwight Waters GGTon 07-03-2022 Gamma glutamyl transferase [Catalytic activity/Vol] 31 U/L Normal 15-85 [facility] Comment on above: Performed By: #### U RTPCR #### [facility] [address] [place] [address] Dr. Dwight Waters GLUCOSE BLOODon 07-03-2022 Glucose [Mass/Vol] 119 mg/dL Critically high 74-106 [facility] Comment on above: Performed By: #### U RTPCR #### [facility] [address] [address] [address] Dwight Waters MAGNESIUMon 07-03-2022 Magnesium [Mass/Vol] 1.4 mg/dL Critically low 1.8-2.4 [facility] Comment on above: Performed By: #### C BC #### [facility] [address] [place] [address] Dr. Dwight Waters NAon 07-03-2022 Sodium [Moles/Vol] 142 mmol/L Normal 136-145 [facility] Comment on above: Performed By: #### C MP #### [facility] [address] [place] [address] Dr. Dwight Waters PHOSPHORUSon 07-03-2022 Phosphate [Mass/Vol] 3.4 mg/dL Normal 2.6-4.7 [facility] Comment on above: Performed By: #### C BC #### [facility] [address] [place] [address] Dr. Dwight Waters POTASSIUMon 07-03-2022 Potassium [Moles/Vol] 4.1 mmol/L Normal 3.5-5.1 [facility] Comment on above: Performed By: #### C BC #### [facility] [address] [place] [address] Dr. Dwight Waters SGOTon 07-03-2022 AST [Catalytic activity/Vol] 14 U/L Critically low 15-37 [facility] Comment on above: Performed By: #### C BC #### [facility] [address] [place] [address] Dr. Dwight Waters SGPTon 07-03-2022 ALT [Catalytic activity/Vol] 25 U/L Normal 16-63 [facility] Comment on above: Performed By: #### C BC #### [facility] [address] [place] [address] Dr. Dwight Waters US KIDNEYSon 07-03-2022 US KIDNEYS Ultrasound kidneys, bilateral HISTORY: Transplant of kidney , pain in the right lower quadrant COMPARISON: None. TECHNIQUE: Transabdominal ultrasound imaging of both kidneys was performed. FINDINGS: The [place] kidneys are diffusely echogenic and atrophic with cortical thinning. The right kidney measures 8.3 x 3.5 x 4.07 m and the left measures 9.9 x 3.8 x 3.6 cm. No hydronephrosis of the [place] kidneys. There is a renal transplant in [...] stone involving the renal transplant. 2. Atrophic [place] kidneys. 3. Normal bladder. Electronically authenticated by: ARCELIA PIZARRO Date: 2022-07-03 17:22 Normal [facility] CT Abdomen and Pelvis WO geoff sosa 06-27-2022 IMPRESSION: 1. Both [place] kidneys are atrophic with improvement in right-sided [...] Adrenals: Adrenal glands are unremarkable. Kidneys: Both [place] kidneys are atrophic. Interval improvement in right [place] kidney hydronephrosis since May 15, 2022. Status [...] Adrenals: Adrenal glands are unremarkable. Kidneys: Both [place] kidneys are atrophic. Interval improvement in right [place] kidney hydronephrosis since May 15, 2022. Status [...] aggressive osseous lesions. IMPRESSION IMPRESSION: 1. Both [place] kidneys are atrophic with improvement in right-sided hydronephrosis since May 15, 2022. 2. 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 No hydronephrosis. No discrete perinephric collection. 3. Partially imaged postsurgical changes related to prior liver transplant. 4. The bladder is decompressed, limiting evaluation. [facility] Radiology Study observation (narrative) [facility] CT Abdomen and Pelvis WO con trastOrdered By: Gera Lu on 06-27-2022 [facility] Work Phone: CBC AUTO DIFFon 06-18-2022 BASO # 0.0 103/ul Normal 0.0-0.1 [facility] Comment on above: Performed By: #### U RTPCR #### [facility] [address] [place] [address] Dr. Dwight Waters Basophils/100 WBC (Bld) 0.5 % Normal 0.2-2.0 [facility] Comment on above: Performed By: #### U RTPCR #### [facility] [address] [place] [address] Dr. Dwight Waters EO # 0.2 103/ul Normal 0.0-0.7 [facility] Comment on above: Performed By: #### U RTPCR #### [facility] [address] [place] [address] Dr. Dwight Waters Eosinophils/100 WBC (Bld) 2.3 % Normal 0.9-7.0 [facility] Comment on above: Performed By: #### U RTPCR #### [facility] [address] [address] [address] Dwight Waters Erythrocyte distribution width (RBC) [Ratio] 12.9 % Normal 11.0-15.0 [facility] Comment on above: Performed By: #### U RTPCR #### [facility] [address] [place] [address] Dr. Dwight Waters Hematocrit (Bld) [Volume fraction] 41.2 % Critically low 42.0-54.0 [facility] Comment on above: Performed By: #### U RTPCR #### [facility] [address] [address] [address] Dwight Waters Hemoglobin (Bld) [Mass/Vol] 13.3 g/dL Critically low 14.0-18.0 [facility] Comment on above: Performed By: #### U RTPCR #### [facility] [address] [address] [address] Dwight Waters IG # 0.04 10e3/ul Critically high 0.00-0.03 [facility] Comment on above: Performed By: #### U RTPCR #### [facility] [address] [address] [address] Dwight Waters IG % 0.5 % Normal 0.0-0.5 [facility] Comment on above: Performed By: #### U RTPCR #### [facility] [address] [address] [address] Dwight Waters LYMPH # 2.0 103/ul Normal 1.2-3.8 [facility] Comment on above: Performed By: #### U RTPCR #### [facility] [address] [address] [address] Dwight Waters Lymphocytes/100 WBC (Bld) 22.9 % Normal 20.5-60.0 [facility] Comment on above: Performed By: #### U RTPCR #### [facility] [address] [address] [address] Dwight Waters MANUAL DIFF REQ NO Normal [facility] Comment on above: Performed By: #### U RTPCR #### [facility] [address] [address] [address] Dwight Waters MCH (RBC) [Entitic mass] 28.7 pg Normal 25.9-34.0 [facility] Comment on above: Performed By: #### U RTPCR #### [facility] [address] [address] [address] Dwight Waters MCHC (RBC) [Mass/Vol] 32.3 g/dL Normal 29.9-35.2 [facility] Comment on above: Performed By: #### U RTPCR #### [facility] [address] [address] [address] Dwight Waters MCV (RBC) [Entitic vol] 88.8 fL Normal 80.0-94.0 [facility] Comment on above: Performed By: #### U RTPCR #### [facility] [address] [address] [address] Dwigth Waters MONO # 0.8 103/ul Normal 0.3-0.8 [facility] Comment on above: Performed By: #### U RTPCR #### [facility] [address] [place] [address] Dr. Dwight Waters Monocytes/100 WBC (Bld) 9.7 % Normal 1.7-12.0 [facility] Comment on above: Performed By: #### U RTPCR #### [facility] [address] [place] [address] Dr. Dwight Waters NEUT # 5.6 103/ul Normal 1.4-6.5 [facility] Comment on above: Performed By: #### U RTPCR #### [facility] [address] [place] [address] Dr. Dwight Waters Neutrophils/100 WBC (Bld) 64.1 % Normal 43.0-75.0 [facility] Comment on above: Performed By: #### U RTPCR #### [facility] [address] [place] [address] Dr. Dwight Waters Platelet mean volume (Bld) [Entitic vol] 10.0 fL Normal 9.5-13.5 [facility] Comment on above: Performed By: #### U RTPCR #### [facility] [address] [place] [address] Dr. Dwight Waters PLT 270 103/ul Normal 150-450 [facility] Comment on above: Performed By: #### U RTPCR #### [facility] [address] [address] [address] Dwight Waters RBC 4.64 106/ul Critically low 4.70-6.10 [facility] Comment on above: Performed By: #### U RTPCR #### [facility] [address] [place] [address] Dr. Dwight Waters WBC 8.7 103/ul Normal 4.0-11.0 [facility] Comment on above: Performed By: #### U RTPCR #### [facility] [address] [address] [address] Dwight Waters CULTURE URINEon 06-18-2022 CULTURE URINE Culture Observations : NO GROWTH. Normal [facility] Comment on above: Performed By: #### U RTPCR #### [facility] [address] [place] [address] Dr. Dwight Waters [facility] SARS-CoV-2 (COVID-19) RNA ESTELITA+probe Ql (Unsp spec) Not detected Normal NOT DETECTED [facility] Comment on above: Result Comment: When diagnostic [...] for this test is supported by the [employer] Worker of Health and Human Service's declaration that [...] By: #### C BC #### [facility] [address] [place] [address] Dr. Dwight Waters ER URINE PROFILEon 2 Bilirubin Ql (U) Negative Normal NEGATIVE [facility] Comment on above: Performed By: #### U RTPCR #### [facility] [address] [place] [address] Dr. Dwight Waters Clarity (U) CLEAR Normal CLEAR [facility] Comment on above: Performed By: #### U RTPCR #### [facility] [address] [address] [address] Dwight Waters Color (U) YELLOW Normal YELLOW [facility] Comment on above: Performed By: #### U RTPCR #### [facility] [address] [place] [address] Dr. Dwight SHARMA A micrscopic examination will be performed if indicated. Normal [facility] Comment on above: Performed By: #### U RTPCR #### [facility] [address] [address] [address] Dwight Waters Glucose Ql (U) Negative Normal NEGATIVE [facility] Comment on above: Performed By: #### U RTPCR #### [facility] [address] [place] [address] Dr. Dwight Waters Hemoglobin Ql (U) LARGE Abnormal NEGATIVE [facility] Comment on above: Performed By: #### U RTPCR #### [facility] [address] [place] [address] Dr. Dwight Waters Ketones Ql (U) Negative Normal NEGATIVE [facility] Comment on above: Performed By: #### U RTPCR #### [facility] [address] [place] [address] Dr. Dwight Waters LEUKOCYTES TRACE Abnormal NEGATIVE [facility] Comment on above: Performed By: #### U RTPCR #### [facility] [address] [place] [address] Dr. Dwight Waters Nitrite Ql (U) Negative Normal NEGATIVE [facility] Comment on above: Performed By: #### U RTPCR #### [facility] [address] [place] [address] Dr. Dwight Waters pH (U) 6.0 [pH] Normal 5-9 [facility] Comment on above: Performed By: #### U RTPCR #### [facility] [address] [place] [address] Dr. Dwight Waters Protein (U) [Mass/Vol] 30 mg/dL Abnormal NEGATIVE/ TRACE [facility] Comment on above: Performed By: #### U RTPCR #### [facility] [address] [place] [address] Dr. Dwight Waters SPEC GRAVITY >=1.030 Abnormal 1.005-<=1.025 [facility] Comment on above: Performed By: #### U RTPCR #### [facility] [address] [place] [address] Dr. Dwight Waters UR MICRO IND INDICATED Normal [facility] Comment on above: Performed By: #### U RTPCR #### [facility] [address] [place] [address] Dr. Dwight Waters Urobilinogen Qn (U) 0.2 {Alyssa'U}/dL Normal 0.2 - 1. 0 [facility] Comment on above: Performed By: #### U RTPCR #### [facility] [address] [place] [address] Dr. Dwight Waters PROF 14(COMP METB)on 022 Albumin [Mass/Vol] 3.7 g/dL Normal 3.4-5.0 [facility] Comment on above: Performed By: #### C MP #### [facility] [address] [place] [address] Dr. Dwight Waters Albumin/Globulin [Mass ratio] 0.9 {ratio} Normal [facility] Comment on above: Performed By: #### C MP #### [facility] [address] [place] [address] Dr. Dwight Waters ALP [Catalytic activity/Vol] 80 U/L Normal 46-116 [facility] Comment on above: Performed By: #### C MP #### [facility] [address] [place] [address] Dr. Dwight Waters ALT [Catalytic activity/Vol] 24 U/L Normal 16-63 [facility] Comment on above: Performed By: #### C MP #### [facility] [address] [place] [address] Dr. Dwight Waters Anion gap [Moles/Vol] 12.9 mmol/L Normal [facility] Comment on above: Performed By: #### C MP #### [facility] [address] [address] [address] Dwight Waters AST [Catalytic activity/Vol] 17 U/L Normal 15-37 [facility] Comment on above: Performed By: #### C MP #### [facility] [address] [address] [address] Dwight Waters Bilirubin [Mass/Vol] 0.8 mg/dL Normal 0.2-1.0 [facility] Comment on above: Performed By: #### C MP #### [facility] [address] [address] [address] Dwight Waters Calcium [Mass/Vol] 9.4 mg/dL Normal 8.5-10.1 [facility] Comment on above: Performed By: #### C MP #### [facility] [address] [address] [address] Dwight Waters Chloride [Moles/Vol] 106 mmol/L Normal 98-107 [facility] Comment on above: Performed By: #### C MP #### [facility] [address] [address] [address] Dwight Waters CO2 [Moles/Vol] 25.3 mmol/L Normal 21.0-32.[address] [facility] Comment on above: Performed By: #### C MP #### [facility] [address] [address] [address] Dwight Waters Creatinine [Mass/Vol] 1.29 mg/dL Normal 0.70-1.30 [facility] Comment on above: Performed By: #### C MP #### [facility] [address] [address] [address] Dwight Waters EGFR-AF INDIAN >60 Normal >=[address] [facility] Comment on above: Performed By: #### C MP #### [facility] [address] [address] [address] Dwight Watres EGFR-NON AF INDIAN 59 mL/min/1.73m2 Critically low >=60 [facility] Comment on above: Performed By: #### C MP #### [facility] [address] [address] [address] Dwight Waters Globulin (S) [Mass/Vol] 4.2 g/dL Normal [facility] Comment on above: Performed By: #### C MP #### [facility] [address] [address] [address] Dwight Waters Glucose [Mass/Vol] 106 mg/dL Normal 74-106 [facility] Comment on above: Performed By: #### C MP #### [facility] [address] [address] [address] Dwight Waters Potassium [Moles/Vol] 4.2 mmol/L Normal 3.5-5.1 [facility] Comment on above: Performed By: #### C MP #### [facility] [address] [place] [address] Dr. Dwight Waters Protein [Mass/Vol] 7.9 g/dL Normal 6.4-8.2 [facility] Comment on above: Performed By: #### C MP #### [facility] [address] [address] [address] Dwight Waters Sodium [Moles/Vol] 140 mmol/L Normal 136-145 [facility] Comment on above: Performed By: #### C MP #### [facility] [address] [address] [address] Dwight Waters Urea nitrogen [Mass/Vol] 22.0 mg/dL Critically high 7.0-18.0 [facility] Comment on above: Performed By: #### C MP #### [facility] [address] [address] [address] Dwight Waters Urea nitrogen/Creatinine [Mass ratio] 17.1 mg/mg Normal [facility] Comment on above: Performed By: #### C MP #### [facility] [address] [place] [address] Dr. Dwight Waters URINE MICROSCOPIC ONLYon BACTERIA TRACE Abnormal NONE SEEN [facility] Comment on above: Performed By: #### U RTPCR #### [facility] [address] [place] [address] Dr. Dwight Waters Bacteria identified Cx Nom (U) INDICATED Normal [facility] Comment on above: Performed By: #### U RTPCR #### [facility] [address] [place] [address] Dr. Dwight Waters CAST NONE SEEN Normal NONE SEEN [facility] Comment on above: Performed By: #### U RTPCR #### [facility] [address] [place] [address] Dr. Dwight Waters Crystals LM Nom (Urine sed) NONE SEEN Normal NONE SEEN [facility] Comment on above: Performed By: #### U RTPCR #### [facility] [address] [place] [address] Dr. Dwight Waters Epithelial cells LM Ql (Urine sed) NONE SEEN Normal NONE SEEN /RARE [facility] Comment on above: Performed By: #### U RTPCR #### [facility] [address] [place] [address] Dr. Dwight Waters MUCOUS NONE SEEN Normal NONE SEEN [facility] Comment on above: Performed By: #### U RTPCR #### [facility] [address] [place] [address] Dr. Dwight Waters RBC 5-10 Abnormal 0-2 [facility] Comment on above: Performed By: #### U RTPCR #### [facility] [address] [place] [address] Dr. Dwight Waters WBC 10-20 Abnormal NONE SEEN [facility] Comment on above: Performed By: #### U RTPCR #### [facility] [address] [place] [address] Dr. Dwight Waters ALLOSCREEN RECIPIENT (POST T X PRA)on 06-13-2022 AB SPECIFICITY CLASS COMMENT Antibody Specificity testing performed by [employer]. cPRA calculation based on identification of HLA antibody specificities at MFI >2000 and/or presence of CREG antibodies. [facility] Comment on above: Some of the reagents used for testing in the Clinical Histocompatibility Laboratory have yet to be approved by the FDA. Our certification by CLIA to perform high complexity tests allows us to use these reagents in the context of a stringent QC program, and obviates the need for FDA approval.Testing performed by the [facility] Clinical Histocompatibility Laboratory. [facility] number: [id number]. [facility] number: [id number], Director: Carlito Merchant, PhD, D([facility]). ANTIBODY SPECIFICITY INTERPRETATION Detected [facility] CLASS I SPECIFICITIES Not detected [facility] CLASS II SPECIFICITIES Not detected [facility] HLA Ab (S) 0 % 0 [facility] EXTRA MICROon 06-13-2022 [facility] URINE CULTUREOrdered By: Jah Upton on 06-13-2022 Bacteria identified Cx Nom (Unsp spec) Growth [facility] Bacteria identified Cx Nom (Unsp spec) 10,000-50,000 CFU/mL Mixed skin shimon [facility] [facility] Comment on above: Multiple bacterial m orphotypes present. Suggest appropriate recollection if clinically indicated. [facility] CBC,PLATELETSon 06-12-2022 Erythrocyte distribution width (RBC) [Ratio] 13.0 % 10.9 - 14.3 % [facility] Hematocrit (Bld) [Volume fraction] 43.2 % 39.6 - 48.8 % [facility] Hemoglobin (Bld) [Mass/Vol] 13.9 g/dL 13.4 - 16.8 g/dL [facility] Interpretation and review of laboratory results Normal [facility] MCH (RBC) [Entitic mass] 28.7 pg 26.1 - 33.3 pg [facility] MCHC (RBC) [Mass/Vol] 32.2 g/dL 31.9 - 36.5 g/dL [facility] MCV (RBC) [Entitic vol] 89.1 fL 79.0 - 94.5 fL [facility] Platelet mean volume (Bld) [Entitic vol] 10.5 fL 8.7 - 12.3 fL [facility] Platelets (Bld) [#/Vol] 269 10*3/uL 146 - 337 K/uL [facility] RBC (Bld) [#/Vol] 4.85 10*6/uL [facility] WBC (Bld) [#/Vol] 7.68 10*3/uL 3.73 - 10. 10 K/uL [facility] CHEM 7 (LYTES,BUN,CREA,GLUC) on 06-12-2022 Anion gap [Moles/Vol] 14 mmol/L 7 - 17 mmol/L [facility] Chloride [Moles/Vol] 106 mmol/L 98 - 10 8 mmol/L [facility] CO2 [Moles/Vol] 25 mmol/L 21 - 31 mmol/L [facility] Creatinine [Mass/Vol] 1.26 mg/dL 0.70 - 1.30 mg/dL [facility] GFR/1.73 sq M.predicted CKD-EPI (S/P/Bld) [Vol rate/Area] 69 >=60 mL/min/1.73m2 [facility] Comment on above: Reported eGFR is bas ed on the CKD-EPI 2020 equation using creatinine, age, and sex. Glucose [Mass/Vol] 83 mg/dL 70 - 99 mg/dL [facility] Osmolality Calc [Osmolality] 295 [facility] Potassium [Moles/Vol] 3.8 mmol/L 3.5 - 5.0 mmol/L [facility] Sodium [Moles/Vol] 141 mmol/L 135 - 145 mmol/L [facility] Urea nitrogen [Mass/Vol] 18 mg/dL 7 - 25 mg/dL [facility] Urea nitrogen/Creatinine [Mass ratio] 14 mg/mg [facility] GGTon 06-12-2022 Gamma glutamyl transferase [Catalytic activity/Vol] 20 U/L 8 - 64 U/L [facility] HEMOGLOBIN [id number] By: Link Roche on 06-12-2022 Average glucose Estimated from glycated hemoglobin (Bld) [Mass/Vol] 126 mg/dL [facility] HbA1c (Bld) [Mass fraction] 6.0 % High 4.7 - 5.6 % [facility] Interpretation and review of laboratory results Abnormal [facility] HEPATIC FUNCTION PANELon 07- 14-2022 Albumin [Mass/Vol] 4.3 g/dL 3.5 - 5.0 g/dL [facility] ALP [Catalytic activity/Vol] 78 U/L 32 - 126 U/L [facility] ALT [Catalytic activity/Vol] 12 U/L 10 - 52 U/L [facility] AST [Catalytic activity/Vol] 16 U/L 10 - 39 U/L [facility] Bilirubin [Mass/Vol] 1.0 mg/dL <1.5 [facility] Bilirubin.direct [Mass/Vol] 0.2 mg/dL <0.3 [facility] Protein [Mass/Vol] 7.5 g/dL 6.4 - 8.3 g/dL [facility] No Panel Informationon 06-12 Interpretation and review of laboratory results Normal [facility] PTH INTACTOrdered By: Marli Lizarraga on 06-12-2022 Interpretation and review of laboratory results Abnormal [facility] Parathyrin.intact [Mass/Vol] 79.7 pg/mL High 14.0 - 72.0 pg/mL [facility] URINALYSIS REFLEX TO CULTURE PERFORMABLEon 06-12-2022 Appearance (U) Clear Clear [facility] Bacteria LM Ql (Urine sed) ABSENT ABSENT [facility] Color (U) Yellow Yellow [facility] Epithelial cells.squamous LM Ql (Urine sed) 1/hpf = 1+ 1/hpf = 1+, 2-5/hpf = 2+, 0/hpf = 0+, ABSENT [facility] Glucose Test strip (U) [Mass/Vol] Negative Negative [facility] Interpretation and review of laboratory results Abnormal [facility] Ketones (U) [Mass/Vol] Trace Abnormal Negative [facility] Leukocyte esterase Test strip Ql (U) Small Abnormal Negative [facility] Nitrite Ql (U) Negative Negative [facility] pH (U) 5.5 [pH] 5.0 - 7.0 [facility] Protein (U) [Mass/Vol] 30 mg/dL Abnormal Negative [facility] RBC (U) [#/Vol] Trace Abnormal Negative [facility] RBC LM.HPF (Urine sed) [#/Area] 0-2 0 - 2 /HPF [facility] Specific gravity (U) [Rel density] 1.026 [facility] Urobilinogen (U) [Mass/Vol] 0.2 E.U./dL 0.2 E.U/dL, 1.0 E.U/dL [facility] WBC LM.HPF (Urine sed) [#/Area] 10-20 Abnormal 0 - 5 /HPF [facility]INE PROTEIN/CREA RATIO, RA NDOMon 06-12-2022 Creatinine (24H U) [Mass/Vol] 231.68 mg/dL [facility] Protein Unsp time (U) [Mass/Vol] 49 mg/dL [facility] Protein/Creatinine (U) [Mass ratio] 0.211 mg/g [facility] FK506 (TACROLIMUS) WHOLE BLO ODon 06-09-2022 Tacrolimus (FK506), Blood 9.8 ng/mL Normal 2.0-20.0 [facility] Comment on above: Result Comment: Trou gh (immediately following transplant) 15.0 . Trough (steady state, 2 weeks or more after transplant): 3.0 - 8.0 . Performed by LC-MS/MS technology. Performed By: #### U RTPCR #### [facility] [address] [place] [address] Dr. Dwight Waters ALBUMINon 06-06-2022 Albumin [Mass/Vol] 3.8 g/dL Normal 3.4-5.0 [facility] Comment on above: Performed By: #### C MP #### [facility] [address] [place] [address] Dr. Dwight Waters ALKALINE PHOSPHAon ALP [Catalytic activity/Vol] 82 U/L Normal 46-116 [facility] Comment on above: Performed By: #### C MP #### [facility] [address] [place] [address] Dr. Dwight Waters BILIRUBIN CONJUGATED (DIRECT )on 06-06-2022 BILI, CONJUGATED 0.2 mg/dL Normal 0.0-0.[address] [facility] Comment on above: Performed By: #### C BC #### [facility] [address] [place] [address] Dr. Dwight Waters BILIRUBIN TOTALon 06-06-2022 Bilirubin [Mass/Vol] 1.0 mg/dL Normal 0.2-1.0 [facility] Comment on above: Performed By: #### C BC #### [facility] [address] [place] [address] Dr. Dwight Waters BUNon 06-06-2022 Urea nitrogen [Mass/Vol] 18.0 mg/dL Normal 7.0-18.0 [facility] Comment on above: Performed By: #### C BC #### [facility] [address] [place] [address] Dr. Dwight Waters CALCIUMon 06-06-2022 Calcium [Mass/Vol] 9.4 mg/dL Normal 8.5-10.1 [facility] Comment on above: Performed By: #### C MP #### [facility] [address] [place] [address] Dr. Dwight Waters CBC AUTO DIFFon 06-06-2022 BASO # 0.1 103/ul Normal 0.0-0.1 [facility] Comment on above: Performed By: #### U RTPCR #### [facility] [address] [place] [address] Dr. Dwight Waters Basophils/100 WBC (Bld) 0.8 % Normal 0.2-2.0 [facility] Comment on above: Performed By: #### U RTPCR #### [facility] [address] [place] [address] Dr. Dwight Waters EO # 0.3 103/ul Normal 0.0-0.7 [facility] Comment on above: Performed By: #### U RTPCR #### [facility] [address] [place] [address] Dr. Dwight Waters Eosinophils/100 WBC (Bld) 3.3 % Normal 0.9-7.0 [facility] Comment on above: Performed By: #### U RTPCR #### [facility] [address] [place] [address] Dr. Dwight Waters Erythrocyte distribution width (RBC) [Ratio] 12.4 % Normal 11.0-15.0 [facility] Comment on above: Performed By: #### U RTPCR #### [facility] [address] [place] [address] Dr. Dwight Waters Hematocrit (Bld) [Volume fraction] 45.1 % Normal 42.0-54.0 [facility] Comment on above: Performed By: #### U RTPCR #### [facility] [address] [place] [address] Dr. Dwight Waters Hemoglobin (Bld) [Mass/Vol] 14.4 g/dL Normal 14.0-18.0 [facility] Comment on above: Performed By: #### U RTPCR #### [facility] [address] [place] [address] Dr. Dwight Watres IG # 0.01 10e3/ul Normal 0.00-0.03 [facility] Comment on above: Performed By: #### U RTPCR #### [facility] [address] [place] [address] Dr. Dwight Waters IG % 0.1 % Normal 0.0-0.5 [facility] Comment on above: Performed By: #### U RTPCR #### [facility] [address] [place] [address] Dr. Dwight Waters LYMPH # 2.2 103/ul Normal 1.2-3.8 [facility] Comment on above: Performed By: #### U RTPCR #### [facility] [address] [place] [address] Dr. Dwight Waters Lymphocytes/100 WBC (Bld) 30.0 % Normal 20.5-60.0 [facility] Comment on above: Performed By: #### U RTPCR #### [facility] [address] [place] [address] Dr. Dwight Waters MANUAL DIFF REQ NO Normal [facility] Comment on above: Performed By: #### U RTPCR #### [facility] [address] [place] [address] Dr. Dwight Waters MCH (RBC) [Entitic mass] 28.2 pg Normal 25.9-34.0 [facility] Comment on above: Performed By: #### U RTPCR #### [facility] [address] [place] [address] Dr. Dwight Waters MCHC (RBC) [Mass/Vol] 31.9 g/dL Normal 29.9-35.2 [facility] Comment on above: Performed By: #### U RTPCR #### [facility] [address] [place] [address] Dr. Dwight Waters MCV (RBC) [Entitic vol] 88.3 fL Normal 80.0-94.0 [facility] Comment on above: Performed By: #### U RTPCR #### [facility] [address] [place] [address] Dr. Dwight Waters MONO # 0.6 103/ul Normal 0.3-0.8 [facility] Comment on above: Performed By: #### U RTPCR #### [facility] [address] [place] [address] Dr. Dwight Waters Monocytes/100 WBC (Bld) 8.2 % Normal 1.7-12.0 [facility] Comment on above: Performed By: #### U RTPCR #### [facility] [address] [place] [address] Dr. Dwight Waters NEUT # 4.3 103/ul Normal 1.4-6.5 [facility] Comment on above: Performed By: #### U RTPCR #### [facility] [address] [place] [address] Dr. Dwight Waters Neutrophils/100 WBC (Bld) 57.6 % Normal 43.0-75.0 [facility] Comment on above: Performed By: #### U RTPCR #### [facility] [address] [place] [address] Dr. Dwight Waters Platelet mean volume (Bld) [Entitic vol] 9.7 fL Normal 9.5-13.5 [facility] Comment on above: Performed By: #### U RTPCR #### [facility] [address] [place] [address] Dr. Dwight Waters PLT 297 103/ul Normal 150-450 [facility] Comment on above: Performed By: #### U RTPCR #### [facility] [address] [place] [address] Dr. Dwight Waters RBC 5.11 106/ul Normal 4.70-6.10 [facility] Comment on above: Performed By: #### U RTPCR #### [facility] [address] [place] [address] Dr. Dwight Waters WBC 7.5 103/ul Normal 4.0-11.0 [facility] Comment on above: Performed By: #### U RTPCR #### [facility] [address] [place] [address] Dr. Dwight Waters CHLORIDEon 06-06-2022 Chloride [Moles/Vol] 107 mmol/L Normal 98-107 [facility] Comment on above: Performed By: #### C BC #### [facility] [address] [place] [address] Dr. Dwight Waters CO2on 06-06-2022 CO2 [Moles/Vol] 27.4 mmol/L Normal 21.0-32.0 [facility] Comment on above: Performed By: #### C BC #### [facility] [address] [place] [address] Dr. Dwight Waters CREATININEon 06-06-2022 Creatinine [Mass/Vol] 1.20 mg/dL Normal 0.70-1.30 [facility] Comment on above: Performed By: #### C BC #### [facility] [address] [place] [address] Dr. Dwight Waters EGFR-AF INDIAN >60 Normal >=60 [facility] Comment on above: Performed By: #### C BC #### [facility] [address] [place] [address] Dr. Dwight Waters EGFR-NON AF INDIAN >60 Normal >=60 [facility] Comment on above: Performed By: #### C BC #### [facility] [address] [place] [address] Dr. Dwight Waters GGTon 06-06-2022 Gamma glutamyl transferase [Catalytic activity/Vol] 29 U/L Normal 15-85 [facility] Comment on above: Performed By: #### C BC #### [facility] [address] [place] [address] Dr. Dwight Waters GLUCOSE BLOODon 06-06-2022 Glucose [Mass/Vol] 112 mg/dL Critically high 74-106 [facility] Comment on above: Performed By: #### C BC #### [facility] [address] [place] [address] Dr. Dwight Waters MAGNESIUMon 06-06-2022 Magnesium [Mass/Vol] 1.3 mg/dL Critically low 1.8-2.4 [facility] Comment on above: Performed By: #### C MP #### [facility] [address] [place] [address] Dr. Dwight Waters NAon 06-06-2022 Sodium [Moles/Vol] 141 mmol/L Normal 136-145 [facility] Comment on above: Performed By: #### C MP #### [facility] [address] [place] [address] Dr. Dwight Waters PHOSPHORUSon 06-06-2022 Phosphate [Mass/Vol] 3.1 mg/dL Normal 2.6-4.7 [facility] Comment on above: Performed By: #### C MP #### [facility] [address] [place] [address] Dr. Dwight Waters POTASSIUMon 06-06-2022 Potassium [Moles/Vol] 4.3 mmol/L Normal 3.5-5.1 [facility] Comment on above: Performed By: #### C BC #### [facility] [address] [place] [address] Dr. Dwight Waters SGOTon 06-06-2022 AST [Catalytic activity/Vol] 16 U/L Normal 15-37 [facility] Comment on above: Performed By: #### C BC #### [facility] [address] [place], [place] [address] Dr[address] [facility] ALT [Catalytic activity/Vol] 50 U/L Normal 16-63 [facility] Comment on above: Performed By: #### C BC #### [facility] [address] [place], [place] [address] Dr. Dwight Waters Bacteria identified Cx Nom ( Bld)on 05-21-2022 Bacteria identified Cx Nom (Unsp spec) NO GROWTH DAY 5 OF 5 [facility] Results may be compromised due to volume of BACT\ALERT bottle exceeding 10mLs . The optimal blood volume is 8-10 mls per aerobic/anaerobic blood culture bottle. [facility] CALCIUMon 05-20-2022 Calcium [Mass/Vol] 9.1 mg/dL 8.6 - 10. 5 mg/dL [facility] CBC,PLATELETSon 05-20-2022 Erythrocyte distribution width (RBC) [Ratio] 12.5 % 10.9 - 14.3 % [facility] Hematocrit (Bld) [Volume fraction] 37.1 % Low 39.6 - 48.8 % [facility] Hemoglobin (Bld) [Mass/Vol] 12.3 g/dL Low 13.4 - 16.8 g/dL [facility] Interpretation and review of laboratory results Abnormal [facility] MCH (RBC) [Entitic mass] 28.9 pg 26.1 - 33.3 pg [facility] MCHC (RBC) [Mass/Vol] 33.2 g/dL 31.9 - 36.5 g/dL [facility] MCV (RBC) [Entitic vol] 87.3 fL 79.0 - 94.5 fL [facility] Platelet mean volume (Bld) [Entitic vol] 9.9 fL 8.7 - 12.3 fL [facility] Platelets (Bld) [#/Vol] 234 10*3/uL 146 - 337 K/uL [facility] RBC (Bld) [#/Vol] 4.25 10*6/uL Low [facility] WBC (Bld) [#/Vol] 6.31 10*3/uL 3.73 - 10. 10 K/uL [facility] CHEM 7 (LYTES,BUN,CREA,GLUC) on 05-20-2022 Anion gap [Moles/Vol] 15 mmol/L 7 - 17 mmol/L [facility] Chloride [Moles/Vol] 111 mmol/L High 98 - 10 8 mmol/L [facility] CO2 [Moles/Vol] 22 mmol/L 21 - 31 mmol/L [facility] Creatinine [Mass/Vol] 1.10 mg/dL 0.70 - 1.30 mg/dL [facility] GFR/1.73 sq M.predicted CKD-EPI (S/P/Bld) [Vol rate/Area] 81 >=60 mL/min/1.73m2 [facility] Comment on above: Reported eGFR is bas ed on the CKD-EPI 2020 equation using creatinine, age, and sex. Glucose [Mass/Vol] 92 mg/dL 70 - 99 mg/dL [facility] Interpretation and review of laboratory results Abnormal [facility] Osmolality Calc [Osmolality] 302 [facility] Potassium [Moles/Vol] 4.4 mmol/L 3.5 - 5.0 mmol/L [facility] Sodium [Moles/Vol] 144 mmol/L 135 - 145 mmol/L [facility] Urea nitrogen [Mass/Vol] 18 mg/dL 7 - 25 mg/dL [facility] Urea nitrogen/Creatinine [Mass ratio] 16 mg/mg [facility] MAGNESIUMon 05-20-2022 Interpretation and review of laboratory results Abnormal [facility] Magnesium [Mass/Vol] 1.5 mg/dL Low 1.6 - 2 .6 mg/dL [facility] No Panel Informationon 05-20 Interpretation and review of laboratory results Normal [facility] PHOSPHATE, INORGANICon 05-20 Phosphate [Mass/Vol] 3.3 mg/dL 2.2 - 4 .6 mg/dL [facility] RF Unspecified body region V [...] projections of kidneys, ureters, and bladder. FINDINGS: Hydraulic Miner images: Hydraulic Miner radiographs of the abdomen reveal a nonobstructive [...] Contrast refluxes up the ureter to the [place] right kidney that is grossly normal appearing. [...] projections of kidneys, ureters, and bladder. FINDINGS: Hydraulic Miner images: Hydraulic Miner radiographs of the abdomen reveal a nonobstructive [...] Contrast refluxes up the ureter to the [place] right kidney that is grossly normal appearing. [...] I have reviewed and approved this report. [facility] Radiology Study observation (narrative) [facility] Unspecified body region V iews during surgeryOrdered By: Lizz Campos on 05-20-2022 [facility] Work Phone: CALCIUMon 05-19-2022 Calcium [Mass/Vol] 9.2 mg/dL 8.6 - 10. 5 mg/dL [facility] Calcium [Mass/Vol] 8.6 mg/dL 8.6 - 10. 5 mg/dL [facility] CBC,PLATELETSon 05-19-2022 Erythrocyte distribution width (RBC) [Ratio] 12.4 % 10.9 - 14.3 % [facility] Hematocrit (Bld) [Volume fraction] 38.0 % Low 39.6 - 48.8 % [facility] Hemoglobin (Bld) [Mass/Vol] 12.0 g/dL Low 13.4 - 16.8 g/dL [facility] Interpretation and review of laboratory results Abnormal [facility] MCH (RBC) [Entitic mass] 28.6 pg 26.1 - 33.3 pg [facility] MCHC (RBC) [Mass/Vol] 31.6 g/dL Low 31.9 - 36.5 g/dL [facility] MCV (RBC) [Entitic vol] 90.5 fL 79.0 - 94.5 fL [facility] Platelet mean volume (Bld) [Entitic vol] 9.7 fL 8.7 - 12.3 fL [facility] Platelets (Bld) [#/Vol] 199 10*3/uL 146 - 337 K/uL [facility] RBC (Bld) [#/Vol] 4.20 10*6/uL Low [facility] WBC (Bld) [#/Vol] 6.81 10*3/uL 3.73 - 10. 10 K/uL [facility] CHEM 7 (LYTES,BUN,CREA,GLUC) on 05-19-2022 Anion gap [Moles/Vol] 13 mmol/L 7 - 17 mmol/L [facility] Chloride [Moles/Vol] 105 mmol/L 98 - 10 8 mmol/L [facility] CO2 [Moles/Vol] 30 mmol/L 21 - 31 mmol/L [facility] Creatinine [Mass/Vol] 1.39 mg/dL High 0.70 - 1.30 mg/dL [facility] GFR/1.73 sq M.predicted CKD-EPI (S/P/Bld) [Vol rate/Area] 61 >=60 mL/min/1.73m2 [facility] Comment on above: Reported eGFR is bas ed on the CKD-EPI 2020 equation using creatinine, age, and sex. Glucose [Mass/Vol] 121 mg/dL High 70 - 99 mg/dL [facility] Interpretation and review of laboratory results Abnormal [facility] Osmolality Calc [Osmolality] 303 [facility] Potassium [Moles/Vol] 3.8 mmol/L 3.5 - 5.0 mmol/L [facility] Sodium [Moles/Vol] 144 mmol/L 135 - 145 mmol/L [facility] Urea nitrogen [Mass/Vol] 18 mg/dL 7 - 25 mg/dL [facility] Urea nitrogen/Creatinine [Mass ratio] 13 mg/mg [facility] Anion gap [Moles/Vol] 15 mmol/L 7 - 17 mmol/L [facility] Chloride [Moles/Vol] 106 mmol/L 98 - 10 8 mmol/L [facility] CO2 [Moles/Vol] 24 mmol/L 21 - 31 mmol/L [facility] Creatinine [Mass/Vol] 1.46 mg/dL High 0.70 - 1.30 mg/dL [facility] GFR/1.73 sq M.predicted CKD-EPI (S/P/Bld) [Vol rate/Area] 58 Low >=60 mL/min/1.73m2 [facility] Comment on above: Reported eGFR is bas ed on the CKD-EPI 2020 equation using creatinine, age, and sex. Glucose [Mass/Vol] 103 mg/dL High 70 - 99 mg/dL [facility] Interpretation and review of laboratory results Abnormal [facility] Osmolality Calc [Osmolality] 298 [facility] Potassium [Moles/Vol] 3.9 mmol/L 3.5 - 5.0 mmol/L [facility] Sodium [Moles/Vol] 141 mmol/L 135 - 145 mmol/L [facility] Urea nitrogen [Mass/Vol] 21 mg/dL 7 - 25 mg/dL [facility] Urea nitrogen/Creatinine [Mass ratio] 14 mg/mg [facility] MAGNESIUMon 05-19-2022 Magnesium [Mass/Vol] 2.0 mg/dL 1.6 - 2 .6 mg/dL [facility] Magnesium [Mass/Vol] 1.7 mg/dL 1.6 - 2 .6 mg/dL [facility] No Panel Informationon 05-19 Interpretation and review of laboratory results Normal [facility] Interpretation and review of laboratory results Normal [facility] PHOSPHATE, INORGANICon 05-19 Phosphate [Mass/Vol] 3.0 mg/dL 2.2 - 4 .6 mg/dL [facility] Phosphate [Mass/Vol] 2.7 mg/dL 2.2 - 4 .6 mg/dL [facility] CALCIUMon 05-18-2022 Calcium [Mass/Vol] 9.1 mg/dL 8.6 - 10. 5 mg/dL [facility] CBC,PLATELETSon 05-18-2022 Erythrocyte distribution width (RBC) [Ratio] 12.5 % 10.9 - 14.3 % [facility] Hematocrit (Bld) [Volume fraction] 37.3 % Low 39.6 - 48.8 % [facility] Hemoglobin (Bld) [Mass/Vol] 11.9 g/dL Low 13.4 - 16.8 g/dL [facility] Interpretation and review of laboratory results Abnormal [facility] MCH (RBC) [Entitic mass] 28.9 pg 26.1 - 33.3 pg [facility] MCHC (RBC) [Mass/Vol] 31.9 g/dL 31.9 - 36.5 g/dL [facility] MCV (RBC) [Entitic vol] 90.5 fL 79.0 - 94.5 fL [facility] Platelet mean volume (Bld) [Entitic vol] 10.1 fL 8.7 - 12.3 fL [facility] Platelets (Bld) [#/Vol] 189 10*3/uL 146 - 337 K/uL [facility] RBC (Bld) [#/Vol] 4.12 10*6/uL [facility] WBC (Bld) [#/Vol] 10.19 10*3/uL High 3.73 - 10 .10 K[facility]L [facility] CHEM 7 (LYTES,BUN,CREA,GLUC) on 05-18-2022 Anion gap [Moles/Vol] 13 mmol/L 7 - 17 mmol/L [facility] Chloride [Moles/Vol] 102 mmol/L 98 - 10 8 mmol/L [facility] CO2 [Moles/Vol] 26 mmol/L 21 - 31 mmol/L [facility] Creatinine [Mass/Vol] 1.91 mg/dL High 0.70 - 1.30 mg/dL [facility] GFR/1.73 sq M.predicted CKD-EPI (S/P/Bld) [Vol rate/Area] 42 Low >=60 mL/min/1.73m2 [facility] Comment on above: Reported eGFR is bas ed on the CKD-EPI 2020 equation using creatinine, age, and sex. Glucose [Mass/Vol] 158 mg/dL High 70 - 99 mg/dL [facility] Osmolality Calc [Osmolality] 297 [facility] Potassium [Moles/Vol] 4.0 mmol/L 3.5 - 5.0 mmol/L [facility] Sodium [Moles/Vol] 137 mmol/L 135 - 145 mmol/L [facility] Urea nitrogen [Mass/Vol] 30 mg/dL High 7 - 25 mg/dL [facility] Urea nitrogen/Creatinine [Mass ratio] 16 mg/mg [facility] CHEM 7 (LYTES,BUN,CREA,GLUC) Ordered By: Tamiko Thapa on 05-18-2022 Anion gap [Moles/Vol] 13 mmol/L 7 - 17 mmol/L [facility] Chloride [Moles/Vol] 104 mmol/L 98 - 10 8 mmol/L [facility] CO2 [Moles/Vol] 26 mmol/L 21 - 31 mmol/L [facility] Creatinine [Mass/Vol] 2.96 mg/dL High 0.70 - 1.30 mg/dL [facility] GFR/1.73 sq M.predicted CKD-EPI (S/P/Bld) [Vol rate/Area] 25 Low >=60 mL/min/1.73m2 [facility] Comment on above: Reported eGFR is bas ed on the CKD-EPI 2020 equation using creatinine, age, and sex. Glucose [Mass/Vol] 136 mg/dL High 70 - 99 mg/dL [facility] Interpretation and review of laboratory results Abnormal [facility] Osmolality Calc [Osmolality] 304 [facility] Potassium [Moles/Vol] 4.2 mmol/L 3.5 - 5.0 mmol/L [facility] Sodium [Moles/Vol] 139 mmol/L 135 - 145 mmol/L [facility] Urea nitrogen [Mass/Vol] 41 mg/dL High 7 - 25 mg/dL [facility] Urea nitrogen/Creatinine [Mass ratio] 14 mg/mg [facility] MAGNESIUMon 05-18-2022 Magnesium [Mass/Vol] 2.2 mg/dL 1.6 - 2 .6 mg/dL [facility] Interpretation and review of laboratory results Normal [facility] Magnesium [Mass/Vol] 1.7 mg/dL 1.6 - 2 .6 mg/dL [facility] No Panel Informationon 05-18 Interpretation and review of laboratory results Abnormal [facility] Interpretation and review of laboratory results Normal [facility] [place] PHOSPHATE, INORGANICon 05-18 Phosphate [Mass/Vol] 2.0 mg/dL Low 2.2 - 4 .6 mg/dL [facility] Interpretation and review of laboratory results Normal [facility] Phosphate [Mass/Vol] 2.8 mg/dL 2.2 - 4 .6 mg/dL [facility] PT,INR,PTTon 05-18-2022 aPTT Coag (PPP) [Time] 31.0 s [facility] INR Coag (Bld) [Relative time] 1.1 {INR} [facility] Interpretation and review of laboratory results Abnormal [facility] PT Coag (PPP) [Time] 14.4 s High [facility] URINE CULTUREOrdered By: Sylvia tripyesi Campos on 05-18-2022 Bacteria identified Cx Nom (Unsp spec) No Growth [facility] CBC,PLATELETSon 05-17-2022 Erythrocyte distribution width (RBC) [Ratio] 12.8 % 10.9 - 14.3 % [facility] Hematocrit (Bld) [Volume fraction] 42.8 % 39.6 - 48.8 % [facility] Hemoglobin (Bld) [Mass/Vol] 13.3 g/dL Low 13.4 - 16.8 g/dL [facility] Interpretation and review of laboratory results Abnormal [facility] MCH (RBC) [Entitic mass] 28.9 pg 26.1 - 33.3 pg [facility] MCHC (RBC) [Mass/Vol] 31.1 g/dL Low 31.9 - 36.5 g/dL [facility] MCV (RBC) [Entitic vol] 92.8 fL 79.0 - 94.5 fL [facility] Platelet mean volume (Bld) [Entitic vol] 10.3 fL 8.7 - 12.3 fL [facility] Platelets (Bld) [#/Vol] 188 10*3/uL 146 - 337 K/uL [facility] RBC (Bld) [#/Vol] 4.61 10*6/uL [facility] WBC (Bld) [#/Vol] 16.61 10*3/uL High 3.73 - 10 .10 K/uL [facility] CHEM 7 (LYTES,BUN,CREA,GLUC) Ordered By: Kaylah Mc on 05-17-2022 Anion gap [Moles/Vol] 15 mmol/L 7 - 17 mmol/L [facility] Chloride [Moles/Vol] 103 mmol/L 98 - 10 8 mmol/L [facility] CO2 [Moles/Vol] 23 mmol/L 21 - 31 mmol/L [facility] Creatinine [Mass/Vol] 5.95 mg/dL High 0.70 - 1.30 mg/dL [facility] GFR/1.73 sq M.predicted CKD-EPI (S/P/Bld) [Vol rate/Area] 11 Low >=60 mL/min/1.73m2 [facility] Comment on above: Reported eGFR is bas ed on the CKD-EPI 2020 equation using creatinine, age, and sex. Glucose [Mass/Vol] 165 mg/dL High 70 - 99 mg/dL [facility] Interpretation and review of laboratory results Abnormal [facility] Osmolality Calc [Osmolality] 305 [facility] Potassium [Moles/Vol] 4.6 mmol/L 3.5 - 5.0 mmol/L [facility] Sodium [Moles/Vol] 136 mmol/L 135 - 145 mmol/L [facility] Urea nitrogen [Mass/Vol] 52 mg/dL High 7 - 25 mg/dL [facility] Urea nitrogen/Creatinine [Mass ratio] 9 mg/mg [facility] CHEM 7 (LYTES,BUN,CREA,GLUC) Ordered By: Kehinde Olsen on 05-17-2022 Anion gap [Moles/Vol] 24 mmol/L High 7 - 17 mmol/L [facility] Chloride [Moles/Vol] 100 mmol/L 98 - 10 8 mmol/L [facility] CO2 [Moles/Vol] 16 mmol/L Low 21 - 31 mmol/L [facility] Creatinine [Mass/Vol] 8.08 mg/dL High 0.70 - 1.30 mg/dL [facility] GFR/1.73 sq M.predicted CKD-EPI (S/P/Bld) [Vol rate/Area] 7 Low >=60 mL/min/1.73m2 [facility] Comment on above: Reported eGFR is bas ed on the CKD-EPI 2020 equation using creatinine, age, and sex. Glucose [Mass/Vol] 164 mg/dL High 70 - 99 mg/dL [facility] Interpretation and review of laboratory results Abnormal [facility] Osmolality Calc [Osmolality] 305 [facility] Potassium [Moles/Vol] 5.0 mmol/L 3.5 - 5.0 mmol/L [facility] Sodium [Moles/Vol] 135 mmol/L 135 - 145 mmol/L [facility] Urea nitrogen [Mass/Vol] 56 mg/dL High 7 - 25 mg/dL [facility] Urea nitrogen/Creatinine [Mass ratio] 7 mg/mg [facility] LAVENDER TOP TUBEon 05-17-20 [facility] MAGNESIUMon 05-17-2022 Interpretation and review of laboratory results Normal [facility] Magnesium [Mass/Vol] 1.8 mg/dL 1.6 - 2 .6 mg/dL [facility] Interpretation and review of laboratory results Normal [facility] Magnesium [Mass/Vol] 1.6 mg/dL 1.6 - 2 .6 mg/dL [facility] No Panel Informationon 05-17 [facility] PHOSPHATE, INORGANICon 05-17 Interpretation and review of laboratory results Abnormal [facility] Phosphate [Mass/Vol] 4.9 mg/dL High 2.2 - 4 .6 mg/dL [facility] PT,INR,PTTon 05-17-2022 aPTT Coag (PPP) [Time] 33.0 s [facility] INR Coag (Bld) [Relative time] 1.3 {INR} High [facility] Interpretation and review of laboratory results Abnormal [facility] PT Coag (PPP) [Time] 15.7 s High [facility] Portable XR Chest Viewson IMPRESSION: No acute findings. OLOGY EXAM: XR CHEST PORTABLE, 05/17/2022 14:39 PM COMPARISON: May 15, 2022 CLINICAL INDICATIONS: hypoxia RELEVANT CLINICAL HISTORY: FINDINGS: (Adequate technique) Implanted Devices: None Thorax: Lungs are clear. No pneumothorax or effusion. Stable cardiomegaly. RADIOLOGY David Sanz, - 05/17/2022 EXAM: XR CHEST PORTABLE, 05/17/2022 14:39 PM COMPARISON: May 15, 2022 CLINICAL INDICATIONS: hypoxia RELEVANT CLINICAL HISTORY: FINDINGS: (Adequate technique) Implanted Devices: None Thorax: Lungs are clear. No pneumothorax or effusion. Stable cardiomegaly. IMPRESSION IMPRESSION: No acute findings. [facility] Radiology Study observation (narrative) [facility] Portable XR Chest ViewsOrder ed By: David Sanz on 05-17-2022 [facility] Work Phone: URINALYSISOrdered By: Michael patel Ma on 05-17-2022 Appearance (U) Cloudy Abnormal Clear U [facility] Comment on above: Results may be inacc urate due to color interference. Clinical correlation recommended. Bacteria LM Ql (Urine sed) ABSENT ABSENT [facility] Color (U) Red Abnormal Yellow [facility] Comment on above: Results may be inacc urate due to color interference. Clinical correlation recommended. Epithelial cells.squamous LM Ql (Urine sed) ABSENT 1/hpf = 1+, 2-5/hpf = 2+, 0/hpf = 0+, ABSENT [facility] Glucose Test strip (U) [Mass/Vol] Negative Negative [facility] Comment on above: Results may be inacc urate due to color interference. Clinical correlation recommended. Interpretation and review of laboratory results Abnormal [facility] Ketones (U) [Mass/Vol] Trace Abnormal Negative [facility] Comment on above: Results may be inacc urate due to color interference. Clinical correlation recommended. Leukocyte esterase Test strip Ql (U) Large Abnormal Negative [facility] Comment on above: Results may be inacc urate due to color interference. Clinical correlation recommended. Nitrite Ql (U) Negative Negative [facility] Comment on above: Results may be inacc urate due to color interference. Clinical correlation recommended. pH (U) 5.0 [pH] 5.0 - 7.0 [facility] Comment on above: Results may be inacc urate due to color interference. Clinical correlation recommended. Protein (U) [Mass/Vol] mg/dL Abnormal Negative [facility] Comment on above: Results may be inacc urate due to color interference. Clinical correlation recommended. RBC (U) [#/Vol] Large Abnormal Negative [facility] Comment on above: Results may be inacc urate due to color interference. Clinical correlation recommended. RBC LM.HPF (Urine sed) [#/Area] /[HPF] Abnormal 0 - 2 /HPF [facility] Specific gravity (U) [Rel density] 1.016 [facility] Comment on above: Results may be inacc urate due to color interference. Clinical correlation recommended. Urobilinogen (U) [Mass/Vol] 0.2 E.U./dL 0.2 E.U/dL, 1.0 E.U/dL [facility] Comment on above: Results may be inacc urate due to color interference. Clinical correlation recommended. WBC LM.HPF (Urine sed) [#/Area] /[HPF] Abnormal 0 - 5 /HPF [facility] URINE CULTUREOrdered By: Tyler Tiwari on 05-17-2022 Bacteria identified Cx Nom (Unsp spec) No Growth [facility] CBC,PLATELETSon 05-16-2022 Erythrocyte distribution width (RBC) [Ratio] 12.9 % 10.9 - 14.3 % [facility] Hematocrit (Bld) [Volume fraction] 46.5 % 39.6 - 48.8 % [facility] Hemoglobin (Bld) [Mass/Vol] 14.7 g/dL 13.4 - 16.8 g/dL [facility] Interpretation and review of laboratory results Abnormal [facility] MCH (RBC) [Entitic mass] 28.3 pg 26.1 - 33.3 pg [facility] MCHC (RBC) [Mass/Vol] 31.6 g/dL Low 31.9 - 36.5 g/dL [facility] MCV (RBC) [Entitic vol] 89.6 fL 79.0 - 94.5 fL [facility] Platelet mean volume (Bld) [Entitic vol] 10.3 fL 8.7 - 12.3 fL [facility] Platelets (Bld) [#/Vol] 188 10*3/uL 146 - 337 K/uL [facility] RBC (Bld) [#/Vol] 5.19 10*6/uL [facility] WBC (Bld) [#/Vol] 12.55 10*3/uL High 3.73 - 10 .10 K/uL [facility] CHEM 7 (LYTES,BUN,CREA,GLUC) Ordered By: Alma Pena on 05-16-2022 Anion gap [Moles/Vol] 14 mmol/L 7 - 17 mmol/L [facility] Chloride [Moles/Vol] 103 mmol/L 98 - 10 8 mmol/L [facility] CO2 [Moles/Vol] 22 mmol/L 21 - 31 mmol/L [facility] Creatinine [Mass/Vol] 6.09 mg/dL High 0.70 - 1.30 mg/dL [facility] GFR/1.73 sq M.predicted CKD-EPI (S/P/Bld) [Vol rate/Area] 10 Low >=60 mL/min/1.73m2 [facility] Comment on above: Reported eGFR is bas ed on the CKD-EPI 2020 equation using creatinine, age, and sex. Glucose [Mass/Vol] 134 mg/dL High 70 - 99 mg/dL [facility] Interpretation and review of laboratory results Abnormal [facility] Osmolality Calc [Osmolality] 298 [facility] Potassium [Moles/Vol] 4.9 mmol/L 3.5 - 5.0 mmol/L [facility] Sodium [Moles/Vol] 134 mmol/L Low 135 - 145 mmol/L [facility] Comment on above: Results inconsistent with previous results Urea nitrogen [Mass/Vol] 49 mg/dL High 7 - 25 mg/dL [facility] Urea nitrogen/Creatinine [Mass ratio] 8 mg/mg [facility] CHEM 7 (LYTES,BUN,CREA,GLUC) on 05-16-2022 Anion gap [Moles/Vol] 17 mmol/L 7 - 17 mmol/L [facility] Chloride [Moles/Vol] 106 mmol/L 98 - 10 8 mmol/L [facility] CO2 [Moles/Vol] 22 mmol/L 21 - 31 mmol/L [facility] Creatinine [Mass/Vol] 5.23 mg/dL High 0.70 - 1.30 mg/dL [facility] GFR/1.73 sq M.predicted CKD-EPI (S/P/Bld) [Vol rate/Area] 13 Low >=60 mL/min/1.73m2 [facility] Comment on above: Reported eGFR is bas ed on the CKD-EPI 2020 equation using creatinine, age, and sex. Glucose [Mass/Vol] 116 mg/dL High 70 - 99 mg/dL [facility] Interpretation and review of laboratory results Abnormal [facility] Osmolality Calc [Osmolality] 305 [facility] Potassium [Moles/Vol] 4.6 mmol/L 3.5 - 5.0 mmol/L [facility] Sodium [Moles/Vol] 140 mmol/L 135 - 145 mmol/L [facility] Urea nitrogen [Mass/Vol] 42 mg/dL High 7 - 25 mg/dL [facility] Urea nitrogen/Creatinine [Mass ratio] 8 mg/mg [facility] EXTRA MICROon 05-16-2022 [facility] LT BLUE TOP TUBEon 2 [facility] LYTES (NA, K, CL) - URINE - RANDOMon 05-16-2022 Chloride (24H U) [Moles/Vol] 68 mmol/L [facility] Potassium (24H U) [Moles/Vol] 36.7 mmol/L [facility] Sodium (24H U) [Moles/Vol] 55 mmol/L [facility] The reference range has not been established for random urine specimens. The test result should be integrated into the clinical context for interpretation. [facility] MAGNESIUMon 05-16-2022 Interpretation and review of laboratory results Normal [facility] Magnesium [Mass/Vol] 1.7 mg/dL 1.6 - 2 .6 mg/dL [facility] NOVEL CORONAVIRUS PCROrdered By: Edson Candelario on 05-16-2022 SARS-CoV-2 (COVID-19) RNA ESTELITA+probe Ql (Unsp spec) Not detected NOT DETECTED [facility] Comment on above: [facility] Negative results do [...] use authorization for use by authorized laboratories. [facility] No Panel Informationon 05-16 [facility] OSMOLALITY, URINEon 05-16-20 Interpretation and review of laboratory results Normal [facility] Osmolality (U) [Osmolality] 320 mosm/kg [facility] The reference range has not been established for random urine specimens. The test result should be integrated into the clinical context for interpretation. [facility] PROCALCITONINon 05-16-2022 Interpretation and review of laboratory results Normal [facility] Procalcitonin [Mass/Vol] 0.18 ng/mL <0.50 [facility] Comment on above: Procalcitonin is an [...] and trend procalcitonin in various clinical settings. [email or web address]/departments/[email or web address]?[email or web address]=/departments/Pharmacy/Documents/[email or web address]&action=[email or web address] Two common cutoffs associated with bacterial infections are as follows. Respiratory tract infections: >0.25 ng/mL Sepsis/septic shock: >0.5 ng/mL Procalcitonin should not be used alone as a diagnostic tool, however. All procalcitonin results should be interpreted in association with the patients clinical condition and all laboratory findings. [facility] PT,INR,PTTon 05-16-2022 aPTT Coag (PPP) [Time] 30.3 s [facility] INR Coag (Bld) [Relative time] 1.1 {INR} [facility] Interpretation and review of laboratory results Normal [facility] PT Coag (PPP) [Time] 14.1 s [facility] SARS-CoV-2 (COVID-19) RNA NA A+probe Ql (Unsp spec)Ordered By: Edson Candelario on 05-16-2022 Interpretation and review of laboratory results Normal [facility] TACROLIMUS LEVEL, TROUGH (ID E DRUG LEVEL)Ordered By: Mariama Nick on 05-16-2022 Interpretation and review of laboratory results Normal [facility] Tacrolimus (Bld) [Mass/Vol] 4.1 ng/mL Bone Marrow Transplant: 4.0-12.0, Therapeutic: 5.0-15.0 [facility] Method performed is a chemiluminescent microparticle immunoasssay on the [employer] i2000. The range is based on experience at [facility] and users should be aware that target concentrations vary widely depending on concomitant therapy, time post-transplant, and desired degree of immunosuppression. [facility] URINE PROTEIN/CREA RATIO, RA Smiley 05-16-2022 Creatinine (24H U) [Mass/Vol] 59.82 mg/dL [facility] Protein Unsp time (U) [Mass/Vol] 111 mg/dL [facility] Protein/Creatinine (U) [Mass ratio] 1.856 mg/g [facility] US for transplanted kidney dina sánchez 05-16-2022 IMPRESSION: 1. Pelvocaliectasis/mild hydronephrosis in the [...] appearing vascular flow in the transplant kidney. [facility] Radiology Study observation (narrative) [facility] US for transplanted kidney l imitedOrdered By: Rosendo Matute on 05-16-2022 [facility] Work Phone: CBC AND ELECTRONIC DIFFon Basophils (Bld) [#/Vol] 10*3/uL 0.00 - 0.09 K/uL [facility] Basophils/100 WBC (Bld) 0.2 % [facility] Differential cell count method Nom (Bld) Electronic Differential [facility] Eosinophils (Bld) [#/Vol] 10*3/uL 0.00 - 0.48 K/uL [facility] Eosinophils/100 WBC (Bld) 0.0 % [facility] Erythrocyte distribution width (RBC) [Ratio] 12.8 % 10.9 - 14.3 % [facility] Hematocrit (Bld) [Volume fraction] 46.0 % 39.6 - 48.8 % [facility] Hemoglobin (Bld) [Mass/Vol] 14.6 g/dL 13.4 - 16.8 g/dL [facility] Immature granulocytes (Bld) [#/Vol] 0.07 10*3/uL <=0.08 [facility] Immature granulocytes/100 WBC (Bld) 0.4 % [facility] Interpretation and review of laboratory results Abnormal [facility] Lymphocytes (Bld) [#/Vol] 1.49 10*3/uL 0.83 - 3.57 K/uL [facility] Lymphocytes/100 WBC (Bld) 9.4 % [facility] MCH (RBC) [Entitic mass] 28.2 pg 26.1 - 33.3 pg [facility] MCHC (RBC) [Mass/Vol] 31.7 g/dL Low 31.9 - 36.5 g/dL [facility] MCV (RBC) [Entitic vol] 89.0 fL 79.0 - 94.5 fL [facility] Monocytes (Bld) [#/Vol] 1.45 10*3/uL High 0.24 - 0.93 K/uL [facility] Monocytes/100 WBC (Bld) 9.2 % [facility] Neutrophils (Bld) [#/Vol] 12.77 10*3/uL High 1.57 - 6.19 K/uL [facility] Nucleated RBC/100 WBC (Bld) [Ratio] 0.0 % <=0.2 /100 WBC [facility] Platelet mean volume (Bld) [Entitic vol] 9.9 fL 8.7 - 12.3 fL [facility] Platelets (Bld) [#/Vol] 250 10*3/uL 146 - 337 K/uL [facility] RBC (Bld) [#/Vol] 5.17 10*6/uL [facility] Segmented neutrophils/100 WBC (Bld) 80.8 % [facility] WBC (Bld) [#/Vol] 15.81 10*3/uL High 3.73 - 10 .10 K/uL [facility] CBC AUTO DIFFon 05-15-2022 BASO # 0.0 103/ul Normal 0.0-0.1 [facility] Comment on above: Performed By: #### C BC #### [facility] [address] [place] [address] Dr. Dwight Waters Basophils/100 WBC (Bld) 0.3 % Normal 0.2-2.0 [facility] Comment on above: Performed By: #### C BC #### [facility] [address] [place] [address] Dr. Dwight Waters EO # 0.1 103/ul Normal 0.0-0.7 [facility] Comment on above: Performed By: #### C BC #### [facility] [address] [place] [address] Dr. Dwight Waters Eosinophils/100 WBC (Bld) 0.8 % Critically low 0.9-7.0 [facility] Comment on above: Performed By: #### C BC #### [facility] [address] [place] [address] Dr. Dwight Waters Erythrocyte distribution width (RBC) [Ratio] 12.7 % Normal 11.0-15.0 [facility] Comment on above: Performed By: #### C BC #### [facility] [address] [place] [address] Dr. Dwight Waters Hematocrit (Bld) [Volume fraction] 43.5 % Normal 42.0-54.0 [facility] Comment on above: Performed By: #### C BC #### [facility] [address] [place] [address] Dr. Dwight Waters Hemoglobin (Bld) [Mass/Vol] 14.4 g/dL Normal 14.0-18.0 [facility] Comment on above: Performed By: #### C BC #### [facility] [address] [place] [address] Dr. Dwight Waters IG # 0.02 10e3/ul Normal 0.00-0.03 [facility] Comment on above: Performed By: #### C BC #### [facility] [address] [place] [address] Dr. Dwight Waters IG % 0.2 % Normal 0.0-0.5 [facility] Comment on above: Performed By: #### C BC #### [facility] [address] [place] [address] Dr. Dwight Waters LYMPH # 1.5 103/ul Normal 1.2-3.8 [facility] Comment on above: Performed By: #### C BC #### [facility] [address] [place] [address] Dr. wDight Waters Lymphocytes/100 WBC (Bld) 12.5 % Critically low 20.5-60.0 [facility] Comment on above: Performed By: #### C BC #### [facility] [address] [place] [address] Dr. Dwight Waters MANUAL DIFF REQ NO Normal [facility] Comment on above: Performed By: #### C BC #### [facility] [address] [place] [address] Dr. Dwight Waters MCH (RBC) [Entitic mass] 28.6 pg Normal 25.9-34.0 [facility] Comment on above: Performed By: #### C BC #### [facility] [address] [place] [address] Dr. Dwight Waters MCHC (RBC) [Mass/Vol] 33.1 g/dL Normal 29.9-35.2 [facility] Comment on above: Performed By: #### C BC #### [facility] [address] [place] [address] Dr. Dwight Waters MCV (RBC) [Entitic vol] 86.3 fL Normal 80.0-94.0 [facility] Comment on above: Performed By: #### C BC #### [facility] [address] [place] [address] Dr. Dwight Waters MONO # 1.0 103/ul Critically high 0.3-0.8 [facility] Comment on above: Performed By: #### C BC #### [facility] [address] [place] [address] Dr. Dwight Waters Monocytes/100 WBC (Bld) 8.2 % Normal 1.7-12.0 [facility] Comment on above: Performed By: #### C BC #### [facility] [address] [place] [address] Dr. Dwight Watres NEUT # 9.1 103/ul Critically high 1.4-6.5 [facility] Comment on above: Performed By: #### C BC #### [facility] [address] [place] [address] Dr. Dwight Waters Neutrophils/100 WBC (Bld) 78.0 % Critically high 43.0-75.0 [facility] Comment on above: Performed By: #### C BC #### [facility] [address] [place] [address] Dr. Dwight Waters Platelet mean volume (Bld) [Entitic vol] 9.8 fL Normal 9.5-13.5 [facility] Comment on above: Performed By: #### C BC #### [facility] [address] [address] [address] Dwight Waters PLT 251 103/ul Normal 150-450 [facility] Comment on above: Performed By: #### C BC #### [facility] [address] [address] [address] Dwight Waters RBC 5.04 106/ul Normal 4.70-6.10 [facility] Comment on above: Performed By: #### C BC #### [facility] [address] [address] [address] Dwight Waters WBC 11.6 103/ul Critically high 4.0-11.[address] [facility] Comment on above: Performed By: #### C BC #### [facility] [address] [address] [address] Dwight Waters CHEM 6 (LYTES, BUN CREA)on 0 05-15-2022 Anion gap [Moles/Vol] 12 mmol/L 7 - 17 mmol/L [facility] Chloride [Moles/Vol] 105 mmol/L 98 - 10 8 mmol/L [facility] CO2 [Moles/Vol] 26 mmol/L 21 - 31 mmol/L [facility] Creatinine [Mass/Vol] 2.85 mg/dL High 0.70 - 1.30 mg/dL [facility] GFR/1.73 sq M.predicted CKD-EPI (S/P/Bld) [Vol rate/Area] 26 Low >=60 mL/min/1.73m2 [facility] Comment on above: Reported eGFR is bas ed on the CKD-EPI 2020 equation using creatinine, age, and sex. Potassium [Moles/Vol] 4.6 mmol/L 3.5 - 5.0 mmol/L [facility] Sodium [Moles/Vol] 138 mmol/L 135 - 145 mmol/L [facility] Urea nitrogen [Mass/Vol] 32 mg/dL High 7 - 25 mg/dL [facility] Urea nitrogen/Creatinine [Mass ratio] 11 mg/mg [facility] CT ABD/PELVIS WO CONon 05-15 [...] transplanted kidney with moderate right-sided hydronephrosis. Atrophic [place] kidneys with moderate right-sided hydronephrosis. Multiple nonobstructive [...] transplanted kidney with moderate right-sided hydronephrosis. Atrophic [place] kidneys with moderate right-sided hydronephrosis. Multiple nonobstructive right renal calculi measuring up to 8 mm. FOLLOW-UP: Follow-up as clinically indicated. Electronically authenticated by: LYNDSAY SAID Date: 2022-05-15 05:04 Normal [facility] Covid-19 PCR (CVDTB)on 04-30 SARS-CoV-2 (COVID-19) RNA ESTELITA+probe Ql (Unsp spec) Not detected Normal NOT DETECTED [facility] Comment on above: Result Comment: When diagnostic [...] for this test is supported by the [place] of [employer] and Human Service's declaration that [...] By: #### U RTPCR #### [facility] [address] [place] [address] Dr. Dwight Waters GLUCOSEon 05-15-2022 Glucose [Mass/Vol] 141 mg/dL High 70 - 99 mg/dL [facility] GOLD TOP TUBEon 05-15-2022 [facility] HEPATIC FUNCTION PANELon Albumin [Mass/Vol] 4.3 g/dL 3.5 - 5.0 g/dL [facility] ALP [Catalytic activity/Vol] 85 U/L 32 - 126 U/L [facility] ALT [Catalytic activity/Vol] 13 U/L 10 - 52 U/L [facility] AST [Catalytic activity/Vol] 15 U/L 10 - 39 U/L [facility] Bilirubin [Mass/Vol] 0.8 mg/dL <1.5 [facility] Bilirubin.direct [Mass/Vol] 0.2 mg/dL <0.3 [facility] Interpretation and review of laboratory results Normal [facility] Protein [Mass/Vol] 7.3 g/dL 6.4 - 8.3 g/dL [facility] LIPASEon 05-15-2022 Lipase [Catalytic activity/Vol] 8 U/L Low 11 - 82 U/L [facility] No Panel Informationon 05-15 Interpretation and review of laboratory results Abnormal [facility] PROF 14(COMP METB)on 06-16-2 022 Albumin [Mass/Vol] 3.8 g/dL Normal 3.4-5.0 [facility] Comment on above: Performed By: #### U RTPCR #### [facility] [address] [place] [address] Dr. Dwight Waters Albumin/Globulin [Mass ratio] 1.1 {ratio} Normal [facility] Comment on above: Performed By: #### U RTPCR #### [facility] [address] [place] [address] Dr. Dwight Waters ALP [Catalytic activity/Vol] 92 U/L Normal 46-116 [facility] Comment on above: Performed By: #### U RTPCR #### [facility] [address] [place] [address] Dr. Dwight Waters ALT [Catalytic activity/Vol] 25 U/L Normal 16-63 [facility] Comment on above: Performed By: #### U RTPCR #### [facility] [address] [place] [address] Dr. Dwight Waters Anion gap [Moles/Vol] 14.6 mmol/L Normal [facility] Comment on above: Performed By: #### U RTPCR #### [facility] [address] [place] [address] Dr. Dwight Waters AST [Catalytic activity/Vol] 17 U/L Normal 15-37 [facility] Comment on above: Performed By: #### U RTPCR #### [facility] [address] [place] [address] Dr. Dwight Waters Bilirubin [Mass/Vol] 0.6 mg/dL Normal 0.2-1.0 [facility] Comment on above: Performed By: #### U RTPCR #### [facility] [address] [place] [address] Dr. Dwight Waters Calcium [Mass/Vol] 9.9 mg/dL Normal 8.5-10.1 [facility] Comment on above: Performed By: #### U RTPCR #### [facility] [address] [place] [address] Dr. Dwight Waters Chloride [Moles/Vol] 106 mmol/L Normal 98-107 [facility] Comment on above: Performed By: #### U RTPCR #### [facility] [address] [address] [address] Dwight Waters CO2 [Moles/Vol] 24.2 mmol/L Normal 21.0-32.[address] [facility] Comment on above: Performed By: #### U RTPCR #### [facility] [address] [address] [address] Dwight Waters Creatinine [Mass/Vol] 1.58 mg/dL Critically high 0.70-1.30 [facility] Comment on above: Performed By: #### U RTPCR #### [facility] [address] [address] [address] Dwight Waters EGFR-AF INDIAN 56 mL/min/1.73m2 Critically low >=60 [facility] Comment on above: Performed By: #### U RTPCR #### [facility] [address] [place] [address] Dr. Dwight Waters EGFR-NON AF INDIAN 46 mL/min/1.73m2 Critically low >=60 [facility] Comment on above: Performed By: #### U RTPCR #### [facility] [address] [place] [address] Dr. Dwight Waters Globulin (S) [Mass/Vol] 3.5 g/dL Normal [facility] Comment on above: Performed By: #### U RTPCR #### [facility] [address] [address] [address] Dwight Waters Glucose [Mass/Vol] 162 mg/dL Critically high 74-106 [facility] Comment on above: Performed By: #### U RTPCR #### [facility] [address] [address] [address] Dwight Waters Potassium [Moles/Vol] 3.8 mmol/L Normal 3.5-5.1 [facility] Comment on above: Performed By: #### U RTPCR #### [facility] [address] [place] [address] Dr. Dwight Waters Protein [Mass/Vol] 7.3 g/dL Normal 6.4-8.2 [facility] Comment on above: Performed By: #### U RTPCR #### [facility] [address] [address] [address] Dwight Waters Sodium [Moles/Vol] 141 mmol/L Normal 136-145 [facility] Comment on above: Performed By: #### U RTPCR #### [facility] [address] [address] [address] Dwight Waters Urea nitrogen [Mass/Vol] 22.0 mg/dL Critically high 7.0-18.0 [facility] Comment on above: Performed By: #### U RTPCR #### [facility] [address] [address] [address] Dwight Waters Urea nitrogen/Creatinine [Mass ratio] 13.9 mg/mg Normal [facility] Comment on above: Performed By: #### U RTPCR #### [facility] [address] [address] [address] Dwight Waters Portable XR Chest Viewson [...] chest. IMPRESSION IMPRESSION: No acute cardiopulmonary disease [facility] Radiology Study observation (narrative) [facility] Portable XR Chest ViewsOrder ed By: Vladislav Omer on 05-15-2022 [facility] URINE DIPSTICK; REFLEX MICRO SCOPY; REFLEX CULTURE PERFORMABLEon 05-15-2022 Appearance (U) Clear Clear [facility] Color (U) Yellow Yellow [facility] Glucose Test strip (U) [Mass/Vol] 100 mg/dL Abnormal Negative [facility] Interpretation and review of laboratory results Abnormal [facility] Ketones (U) [Mass/Vol] Negative Negative [facility] Leukocyte esterase Test strip Ql (U) Large Abnormal Negative [facility] Nitrite Ql (U) Negative Negative [facility] pH (U) 6.0 [pH] 5.0 - 7.0 [facility] Protein (U) [Mass/Vol] 100 mg/dL Abnormal Negative [facility] RBC (U) [#/Vol] Large Abnormal Negative [facility] Specific gravity (U) [Rel density] 1.010 [facility] Urobilinogen (U) [Mass/Vol] 0.2 E.U./dL 0.2 E.U/dL, 1.0 E.U/dL [facility] URINE MICROSCOPIC WITH REFLE X TO CULTUREOrdered By: Rey Bro on 05-15-2022 Bacteria LM Ql (Urine sed) ABSENT ABSENT [facility] Epithelial cells.squamous LM Ql (Urine sed) ABSENT 1/hpf = 1+, 2-5/hpf = 2+, 0/hpf = 0+, ABSENT [facility] Interpretation and review of laboratory results Abnormal [facility] RBC LM.HPF (Urine sed) [#/Area] /[HPF] Abnormal 0 - 2 /HPF [facility] WBC LM.HPF (Urine sed) [#/Area] 10-20 Abnormal 0 - 5 /HPF [facility] CT ABD/PELVIS WO CONon 05-12 CT ABD/PELVIS WO CON Begin Addendum #[address] Lund 3:25 PM EST 05/11/2022. Begin Addendum #2 IMPRESSION below should also contain the followin. 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 The [place] kidneys are progressively atrophic bilaterally compared to [...] of 06/14/2020 are no longer present. The [place] distal right ureter is decompressed beyond this [...] with surgical history for renal graft and [place] right urinary drainage, as a discrete ureteroneocystostomy is not identified, and the graft may be draining via a ureteroureterostomy. Urology consultation recommended. 3. The [place] kidneys are bilaterally atrophic, with right renal sinus calcifications consistent with nonobstructing right [place] renal calculi up to 6 mm. Normal [facility] CBC AUTO DIFFon 05-11-2022 BASO # 0.1 103/ul Normal 0.0-0.1 [facility] Comment on above: Performed By: #### U RTPCR #### [facility] [address] [place] [address] Dr. Dwight Waters Basophils/100 WBC (Bld) 0.8 % Normal 0.2-2.0 [facility] Comment on above: Performed By: #### U RTPCR #### [facility] [address] [place] [address] Dr. Dwight Waters EO # 0.2 103/ul Normal 0.0-0.7 [facility] Comment on above: Performed By: #### U RTPCR #### [facility] [address] [place] [address] Dr. Dwight Waters Eosinophils/100 WBC (Bld) 2.5 % Normal 0.9-7.0 [facility] Comment on above: Performed By: #### U RTPCR #### [facility] [address] [place] [address] Dr. Dwight Waters Erythrocyte distribution width (RBC) [Ratio] 12.5 % Normal 11.0-15.0 [facility] Comment on above: Performed By: #### U RTPCR #### [facility] [address] [place] [address] Dr. Dwight Waters Hematocrit (Bld) [Volume fraction] 48.3 % Normal 42.0-54.0 [facility] Comment on above: Performed By: #### U RTPCR #### [facility] [address] [place] [address] Dr. Dwight Waters Hemoglobin (Bld) [Mass/Vol] 15.3 g/dL Normal 14.0-18.0 [facility] Comment on above: Performed By: #### U RTPCR #### [facility] [address] [place] [address] Dr. Dwight Waters IG # 0.01 10e3/ul Normal 0.00-0.03 [facility] Comment on above: Performed By: #### U RTPCR #### [facility] [address] [place] [address] Dr. Dwight Waters IG % 0.2 % Normal 0.0-0.5 [facility] Comment on above: Performed By: #### U RTPCR #### [facility] [address] [place] [address] Dr. Dwight Waters LYMPH # 1.9 103/ul Normal 1.2-3.8 [facility] Comment on above: Performed By: #### U RTPCR #### [facility] [address] [place] [address] Dr. Dwight Waters Lymphocytes/100 WBC (Bld) 29.8 % Normal 20.5-60.0 [facility] Comment on above: Performed By: #### U RTPCR #### [facility] [address] [place] [address] Dr. Dwight Waters MANUAL DIFF REQ NO Normal [facility] Comment on above: Performed By: #### U RTPCR #### [facility] [address] [place] [address] Dr. Dwight Waters MCH (RBC) [Entitic mass] 28.2 pg Normal 25.9-34.0 [facility] Comment on above: Performed By: #### U RTPCR #### [facility] [address] [address] [address] Dwight Waters MCHC (RBC) [Mass/Vol] 31.7 g/dL Normal 29.9-35.2 [facility] Comment on above: Performed By: #### U RTPCR #### [facility] [address] [place] [address] Dr. Dwight Waters MCV (RBC) [Entitic vol] 89.1 fL Normal 80.0-94.0 [facility] Comment on above: Performed By: #### U RTPCR #### [facility] [address] [place] [address] Dr. Dwight Waters MONO # 0.6 103/ul Normal 0.3-0.8 [facility] Comment on above: Performed By: #### U RTPCR #### [facility] [address] [place] [address] Dr. Dwight Waters Monocytes/100 WBC (Bld) 9.0 % Normal 1.7-12.0 [facility] Comment on above: Performed By: #### U RTPCR #### [facility] [address] [place] [address] Dr. Dwight Waters NEUT # 3.6 103/ul Normal 1.4-6.5 [facility] Comment on above: Performed By: #### U RTPCR #### [facility] [address] [place] [address] Dr. Dwight Waters Neutrophils/100 WBC (Bld) 57.7 % Normal 43.0-75.0 [facility] Comment on above: Performed By: #### U RTPCR #### [facility] [address] [place] [address] Dr. Dwight Waters Platelet mean volume (Bld) [Entitic vol] 9.9 fL Normal 9.5-13.5 [facility] Comment on above: Performed By: #### U RTPCR #### [facility] [address] [place] [address] Dr. Dwight Waters PLT 249 103/ul Normal 150-450 [facility] Comment on above: Performed By: #### U RTPCR #### [facility] [address] [place] [address] Dr. Dwight Waters RBC 5.42 106/ul Normal 4.70-6.10 [facility] Comment on above: Performed By: #### U RTPCR #### [facility] [address] [place] [address] Dr. Dwight Waters WBC 6.3 103/ul Normal 4.0-11.0 [facility] Comment on above: Performed By: #### U RTPCR #### [facility] [address] [place] [address] Dr. Dwight Waters ER URINE PROFILEon 2 Bilirubin Ql (U) Unable to perform testing due to color interference. Abnormal NEGATIVE [facility] Comment on above: Performed By: #### U RTPCR #### [facility] [address] [place] [address] Dr. Dwight Waters Clarity (U) TURBID Abnormal CLEAR [facility] Comment on above: Performed By: #### U RTPCR #### [facility] [address] [place] [address] Dr. Dwight Waters Color (U) RED Abnormal YELLOW [facility] Comment on above: Performed By: #### U RTPCR #### [facility] [address] [place] [address] Dr. Dwight Waters ERUD A micrscopic examination will be performed if indicated. Normal [facility] Comment on above: Performed By: #### U RTPCR #### [facility] [address] [place] [address] Dr. Dwight Waters Glucose Ql (U) Unable to perform testing due to color interference. Abnormal NEGATIVE [facility] Comment on above: Performed By: #### U RTPCR #### [facility] [address] [place] [address] Dr. Dwight Waters Hemoglobin Ql (U) Unable to perform testing due to color interference. Abnormal NEGATIVE [facility] Comment on above: Performed By: #### U RTPCR #### [facility] [address] [place] [address] Dr. Dwight Waters Ketones Ql (U) Unable to perform testing due to color interference. Abnormal NEGATIVE [facility] Comment on above: Performed By: #### U RTPCR #### [facility] [address] [place] [address] Dr. Dwight Waters LEUKOCYTES Unable to perform testing due to color interference. Abnormal NEGATIVE [facility] Comment on above: Performed By: #### U RTPCR #### [facility] [address] [place] [address] Dr. Dwight Waters Nitrite Ql (U) Unable to perform testing due to color interference. Abnormal NEGATIVE [facility] Comment on above: Performed By: #### U RTPCR #### [facility] [address] [place] [address] Dr. Dwight Waters pH (U) 6.5 [pH] Normal 5-9 [facility] Comment on above: Performed By: #### U RTPCR #### [facility] [address] [place] [address] Dr. Dwight Waters SPEC GRAVITY 1.020 Normal 1.005-<=1.025 [facility] Comment on above: Performed By: #### U RTPCR #### [facility] [address] [place] [address] Dr. Dwight Waters UA PROTEIN Unable to perform testing due to color interference. Normal NEGATIVE/ TRACE [facility] Comment on above: Performed By: #### U RTPCR #### [facility] [address] [place] [address] Dr. Dwight Waters UR MICRO IND INDICATED Normal [facility] Comment on above: Performed By: #### U RTPCR #### [facility] [address] [place] [address] Dr. Dwight Waters UROBILINOGEN Unable to perform testing due to color interference. Normal 0.2 - 1.0 [facility] Comment on above: Performed By: #### U RTPCR #### [facility] [address] [place] [address] Dr. Dwight Waters PROF 14(COMP METB)on 06-12-2 022 Albumin [Mass/Vol] 3.8 g/dL Normal 3.4-5.0 [facility] Comment on above: Performed By: #### C MP #### [facility] [address] [place] [address] Dr. Dwight Waters Albumin/Globulin [Mass ratio] 1.1 {ratio} Normal [facility] Comment on above: Performed By: #### C MP #### [facility] [address] [address] [address] Dwight Waters ALP [Catalytic activity/Vol] 106 U/L Normal 46-116 [facility] Comment on above: Performed By: #### C MP #### [facility] [address] [place] [address] Dr. Dwight Waters ALT [Catalytic activity/Vol] 30 U/L Normal 16-63 [facility] Comment on above: Performed By: #### C MP #### [facility] [address] [place] [address] Dr. Dwight Waters Anion gap [Moles/Vol] 11.7 mmol/L Normal [facility] Comment on above: Performed By: #### C MP #### [facility] [address] [place] [address] Dr. Dwight Waters AST [Catalytic activity/Vol] 16 U/L Normal 15-37 [facility] Comment on above: Performed By: #### C MP #### [facility] [address] [place] [address] Dr. Dwight Waters Bilirubin [Mass/Vol] 0.6 mg/dL Normal 0.2-1.0 [facility] Comment on above: Performed By: #### C MP #### [facility] [address] [place] [address] Dr. Dwight Waters Calcium [Mass/Vol] 9.1 mg/dL Normal 8.5-10.1 [facility] Comment on above: Performed By: #### C MP #### [facility] [address] [place] [address] Dr. Dwight Waters CO2 [Moles/Vol] 27.4 mmol/L Normal 21.0-32.[address] [facility] Comment on above: Performed By: #### C MP #### [facility] [address] [address] [address] Dwight Waters Creatinine [Mass/Vol] 1.18 mg/dL Normal 0.70-1.30 [facility] Comment on above: Performed By: #### C MP #### [facility] [address] [address] [address] Dwight Waters EGFR-AF INDIAN >60 Normal >=[address] [facility] Comment on above: Performed By: #### C MP #### [facility] [address] [address] [address] Dwight Waters EGFR-NON AF INDIAN >60 Normal >=60 [facility] Comment on above: Performed By: #### C MP #### [facility] [address] [place] [address] Dr. Dwight Waters Globulin (S) [Mass/Vol] 3.6 g/dL Normal [facility] Comment on above: Performed By: #### C MP #### [facility] [address] [place] [address] Dr. Dwight Waters Glucose [Mass/Vol] 192 mg/dL Critically high 74-106 [facility] Comment on above: Performed By: #### C MP #### [facility] [address] [place] [address] Dr. Dwight Waters Potassium [Moles/Vol] 4.1 mmol/L Normal 3.5-5.1 [facility] Comment on above: Performed By: #### C MP #### [facility] [address] [address] [address] Dwight Waters Protein [Mass/Vol] 7.4 g/dL Normal 6.4-8.2 [facility] Comment on above: Performed By: #### C MP #### [facility] [address] [place] [address] Dr. Dwight Waters Sodium [Moles/Vol] 142 mmol/L Normal 136-145 [facility] Comment on above: Performed By: #### C MP #### [facility] [address] [place] [address] Dr. Dwight Waters Urea nitrogen [Mass/Vol] 17.0 mg/dL Normal 7.0-18.0 [facility] Comment on above: Performed By: #### C MP #### [facility] [address] [place] [address] Dr. Dwight Waters Urea nitrogen/Creatinine [Mass ratio] 14.4 mg/mg Normal [facility] Comment on above: Performed By: #### C MP #### [facility] [address] [place] [address] Dr. Dwight Waters URINE MICROSCOPIC ONLYon BACTERIA NONE SEEN Normal NONE SEEN [facility] Comment on above: Performed By: #### U RTPCR #### [facility] [address] [place] [address] Dr. Dwight Waters Bacteria identified Cx Nom (U) NOT INDICATED Normal [facility] Comment on above: Performed By: #### U RTPCR #### [facility] [address] [place] [address] Dr. Dwight Waters CAST NONE SEEN Normal NONE SEEN [facility] Comment on above: Performed By: #### U RTPCR #### [facility] [address] [place] [address] Dr. Dwight Waters Crystals LM Nom (Urine sed) NONE SEEN Normal NONE SEEN [facility] Comment on above: Performed By: #### U RTPCR #### [facility] [address] [place] [address] Dr. Dwight Waters Epithelial cells LM Ql (Urine sed) RARE Normal NONE SEEN /RARE [facility] Comment on above: Performed By: #### U RTPCR #### [facility] [address] [place] [address] Dr. Dwight Waters MUCOUS NONE SEEN Normal NONE SEEN [facility] Comment on above: Performed By: #### U RTPCR #### [facility] [address] [place] [address] Dr. Dwight Waters RBC (U) [#/Vol] /uL Abnormal 0-2 [facility] Comment on above: Performed By: #### U RTPCR #### [facility] [address] [address] [address] Dwight Waters WBC NONE SEEN Normal NONE SEEN [facility] Comment on above: Performed By: #### U RTPCR #### [facility] [id number] Dwight Waters K (Potassium)on 01-06-2020 Potassium [Moles/Vol] 4.4 mmol/L Normal 3.7-5.3 [facility] Comment on above: Performed By: #### K #### [facility] [address] [place], [place] [id number] [employer] Plant Operator: Kehinde Woodward MD Potassiumon 01-06-2020 Potassium [Moles/Vol] 4.4 mmol/L 3.7 - 5.3 mmol/L [facility] Work Phone: Hemoglobin and Hematocrit, B loodon 10-24-2019 Hematocrit (Bld) [Volume fraction] 23.6 % Low 40.7 - 50.3 % [place] Hemoglobin (Bld) [Mass/Vol] 7.3 g/dL Low 13 - 17 g/dL [place] Interpretation and review of laboratory results Abnormal [place] Hgb/Hcton 10-24-2019 Hematocrit (Bld) [Volume fraction] 23.6 % Low 40.7-50.3 [facility] Comment on above: Performed By: #### H H #### [facility] [address] [place], [place] [id number] [employer] Operator: Kehinde Woodward MD Hemoglobin (Bld) [Mass/Vol] 7.3 g/dL Low 13.0-17.0 [facility] Comment on above: Performed By: #### H H #### [facility] [address] [place] [address] [employer] Plant Operator: Kehinde Woodward MD Hemoglobinon 08-27-2019 Hemoglobin (Bld) [Mass/Vol] 7.5 g/dL Low 13.0-17.0 [facility] Comment on above: Performed By: #### H GB #### [facility] [address] [place] [address] [employer] Plant Operator: Kehinde Woodward MD Hemoglobin (Bld) [Mass/Vol] 7.5 g/dL Low 13 - 17 g/dL [place] Interpretation and review of laboratory results Abnormal [place] Hemoglobinon 08-08-2019 Hemoglobin (Bld) [Mass/Vol] 8.3 g/dL Low 13.0-17.0 [facility] Comment on above: Performed By: #### H GB #### [facility] [address] [place] [address] [employer] Plant Operator: Kehinde Woodward MD Hemoglobin (Bld) [Mass/Vol] 8.3 g/dL Low 13 - 17 g/dL [place] Interpretation and review of laboratory results Abnormal [place] Hemoglobinon 08-04-2019 Hemoglobin (Bld) [Mass/Vol] 8.0 g/dL Low 13.0-17.0 [facility] Comment on above: Performed By: #### H GB #### [facility] [address] [place] [address] [employer] Operator: Kehinde Woodward MD Hemoglobin A1Con 08-03-2019 HbA1c (Bld) [Mass fraction] % Low 4.8-5.9 [facility] Comment on above: Result Comment: The ADA and AACC recommend providing the estimated average glucose result to permit better patient understanding of their HBA1c result. Performed By: #### G LYHGB #### [facility] [address] [place] [address] [employer] Plant Operator: Kehinde Woodward MD Glucose [Mass/Vol] mg/dL mg/dL [place] Comment on above: The ADA and AACC rec ommend providing the estimated average glucose result to permit better patient understanding of their HBA1c result. HbA1c (Bld) [Mass fraction] % Low 4.8 - 5.9 % [place] Interpretation and review of laboratory results Abnormal [place] Hemoglobinon 08-01-2019 Hemoglobin (Bld) [Mass/Vol] 8.1 g/dL Low 13.0-17.0 [facility] Comment on above: Performed By: #### H GB #### [facility] [address] [place], [place] [id number] [employer] Operator: Kehinde Woodward MD Hemoglobin (Bld) [Mass/Vol] 8.1 g/dL Low 13 - 17 g/dL [place] Interpretation and review of laboratory results Abnormal [place] Hgb/Hcton 06-10-2019 Hematocrit (Bld) [Volume fraction] 24.3 % Low 40.7-50.3 [facility] Comment on above: Performed By: #### H H #### [facility] [address] [place] [id number] [employer] Plant Operator: Kehinde Woodward MD Hemoglobin (Bld) [Mass/Vol] 7.4 g/dL Low 13.0-17.0 [facility] Comment on above: Performed By: #### H H #### [facility] [address] [place] [address] [place] [address] [employer] Plant Operator: Kehinde Woodward MD Hemoglobinon 06-01-2019 Hemoglobin (Bld) [Mass/Vol] 7.2 g/dL Low 13.0-17.0 [facility] Comment on above: Performed By: #### H GB #### [facility] [address] [place] [id number] [employer] Plant Operator: Kehinde Woodward MD K (Potassium)on 01-14-2019 Potassium [Moles/Vol] 3.6 mmol/L Low 3.7-5.3 [facility] Comment on above: Performed By: #### K #### [facility] [address] [place] [address] [place] [address] [employer] Plant Operator: Kehinde Woodward MD Otheron 10-19-2018 IMPRESSION: 1. [...] characteristics determined by Toxicology Laboratory at [facility]. It has not been cleared or approved [...] Amitriptyline(50), Amphetamine(250), Atenolol(500), Barbiturates(1000), Benzoylecgonine(50), Buprenorphine(50), Bupropion(25), Caffeine(33901), Chlordiazepoxide(50), Chlorpheniramine(100), Chlorpromazine(50), Citalopram(100), Clonazepam(200), Cocaine(25), Codeine(200), [...] Code LAB, [facility] TOXICOLOGY SCREEN URINE - [facility] 10-12-2018 Drugs identified Screen Nom (U) For Medical Purposes Only, Non-forensic, screen results are presumptive. No confirmatory testing will follow. Invalid Interpretation Code LAB, [facility] Comment on above: This Liquid Chromato graphy Mass Spectrometry (LC/MS/MS) test was developed and its performance characteristics determined by Toxicology Laboratory at [facility]. It has not been cleared or approved [...] Amitriptyline(50), Amphetamine(250), Atenolol(500), Barbiturates(200), Benzoylecgonine(50), Buprenorphine(500), Bupropion(25), Caffeine(82115), Cannabinoids(THC)(50), Chlordiazepoxide(50), Chlorpheniramine(100), Chlorpromazine(50), Citalopram(100), Clonazepam(200), Cocaine(25), [...] Time Vital Sign Value Performing Clinician Facility 01-06-2024 09:04-0500 Body height 170.2 cm Zuly Bruno NP Work Phone: [facility] 01-06-2024 09:04-0500 Body mass index (BMI) [Ratio] 32.42 kg/m2 Zuly Owenlydiaholz DIABETOLOGIST Work Phone: [facility] 01-06-2024 09:04-0500 Body temperature 97.81 [degF] Zuly Torresholz DIABETOLOGIST Work Phone: [facility] 01-06-2024 09:04-0500 Body weight 93.89 kg Zuly Owenlydiaholz DIABETOLOGIST Work Phone: [facility] 01-06-2024 09:04-0500 Diastolic blood pressure 70 mm[Hg] Zuly Kristopherhholz DIABETOLOGIST Work Phone: [facility] 01-06-2024 09:04-0500 Heart rate 95 /min Zuly Torresholz DIABETOLOGIST Work Phone: [facility] 01-06-2024 09:04-0500 Respiratory rate 17 /min Zulytray Torresholz DIABETOLOGIST Work Phone: [facility] 01-06-2024 09:04-0500 SaO2% (BldA) [Mass fraction] 99 % Zuly Kristopherhholz DIABETOLOGIST Work Phone: [facility] 01-06-2024 09:04-0500 Systolic blood pressure 138 mm[Hg] Zuly Brianholz DIABETOLOGIST Work Phone: [facility] 09-11-2023 10:31-0400 Body temperature 97.81 [degF] Steve Yeison MBBS Work Phone: [facility] 09-11-2023 10:31-0400 Diastolic blood pressure 66 mm[Hg] Steve Yeison MBBS Work Phone: [facility] 09-11-2023 10:31-0400 Heart rate 70 /min Steve Yeison MBBS Work Phone: [facility] 09-11-2023 10:31-0400 Respiratory rate 20 /min Steve Yeison MBBS Work Phone: [facility] 09-11-2023 10:31-0400 SaO2% (BldA) [Mass fraction] 91 % Steve Yeison MBBS Work Phone: [facility] 09-11-2023 10:31-0400 Systolic blood pressure 129 mm[Hg] Steve Yeison MBBS Work Phone: [facility] 09-10-2023 15:50-0400 Body mass index (BMI) [Ratio] 31.99 kg/m2 Steve Yeison MBBS Work Phone: [facility] 09-10-2023 15:50-0400 Body weight 92.67 kg Steve Yeison MBBS Work Phone: [facility] 09-02-2023 07:32-0400 Body height 170.2 cm Steve Yeison MBBS Work Phone: [facility] 08-28-2023 13:33-0400 Body height 170.2 cm Steve Yeison MBBS Work Phone: [facility] 08-28-2023 13:33-0400 Body mass index (BMI) [Ratio] 32.12 kg/m2 Steve Yeison MBBS Work Phone: [facility] 08-28-2023 13:33-0400 Body temperature 97.3 [degF] Steve Yeison MBBS Work Phone: [facility] 08-28-2023 13:33-0400 Body weight 93.03 kg Steve Yeison MBBS Work Phone: [facility] 08-28-2023 13:33-0400 Diastolic blood pressure 41 mm[Hg] Steve Yeison MBBS Work Phone: [facility] 08-28-2023 13:33-0400 Heart rate 116 /min Steve Yeison MBBS Work Phone: [facility] 08-28-2023 13:33-0400 Systolic blood pressure 106 mm[Hg] Steve Latham JOSHBS Work Phone: [facility] 06-12-2023 14:50-0400 Body mass index (BMI) [Ratio] 33.8 kg/m2 Rebeca Olsen HEAT ENGINEERING TEACHER-SURGICAL GARMENT ASSEMBLER Work Phone: [facility] 06-12-2023 14:50-0400 Body temperature 97.3 [degF] Rebeca Olsen HEAT ENGINEERING TEACHER-SURGICAL GARMENT ASSEMBLER Work Phone: [facility] 06-12-2023 14:50-0400 Body weight 97.89 kg Rebeca Olsen HEAT ENGINEERING TEACHER-SURGICAL GARMENT ASSEMBLER Work Phone: [facility] 06-12-2023 14:50-0400 Diastolic blood pressure 77 mm[Hg] Rebeca Olsen HEAT ENGINEERING TEACHER-SURGICAL GARMENT ASSEMBLER Work Phone: [facility] 06-12-2023 14:50-0400 Heart rate 76 /min Rebeca Olsen HEAT ENGINEERING TEACHER-SURGICAL GARMENT ASSEMBLER Work Phone: [facility] 06-12-2023 14:50-0400 Systolic blood pressure 146 mm[Hg] Rebeca Olsen HEAT ENGINEERING TEACHER-SURGICAL GARMENT ASSEMBLER Work Phone: [facility] 01-16-2023 08:57-0500 Body height 170.2 cm [facility] 3 Work Phone: [facility] 01-16-2023 08:57-0500 Body mass index (BMI) [Ratio] 33.66 kg/m2 [facility] 3 Work Phone: [facility] 01-16-2023 08:57-0500 Body temperature 97.3 [degF] [facility] 3 Work Phone: [facility] 01-16-2023 08:57-0500 Body weight 97.48 kg [facility] Hep[facility]ology 3 Work Phone: [facility] 01-16-2023 08:57-0500 Diastolic blood pressure 75 mm[Hg] [facility] Hep[facility] 3 Work Phone: [facility] 01-16-2023 08:57-0500 Heart rate 76 /min [facility] Hep[facility]ology 3 Work Phone: [facility] 01-16-2023 08:57-0500 Systolic blood pressure 142 mm[Hg] [facility] 3 Work Phone: [facility] 09-10-2022 09:38-0400 Body height 170.2 cm Ryan Yepez MD Work Phone: [facility] 09-10-2022 09:38-0400 Body mass index (BMI) [Ratio] 33.67 kg/m2 Ryan Yepez MD Work Phone: [facility] 09-10-2022 09:38-0400 Body weight 97.52 kg Ryan Yepez MD Work Phone: [facility] 09-10-2022 09:38-0400 Diastolic blood pressure 83 mm[Hg] Ryan Yepez MD Work Phone: [facility] 09-10-2022 09:38-0400 Heart rate 64 /min Ryan Yepez MD Work Phone: [facility] 09-10-2022 09:38-0400 SaO2% (BldA) [Mass fraction] 96 % Ryan Yepez MD Work Phone: [facility] 09-10-2022 09:38-0400 Systolic blood pressure 129 mm[Hg] Ryan Yepez MD Work Phone: [facility] 07-07-2022 13:48-0400 Diastolic blood pressure 76 mm[Hg] Ryan Yepez MD Work Phone: [facility] 07-07-2022 13:48-0400 Heart rate 82 /min Ryan Yepez MD Work Phone: [facility] 07-07-2022 13:48-0400 SaO2% (BldA) [Mass fraction] 96 % Ryan Yepez MD Work Phone: [facility] 07-07-2022 13:48-0400 Systolic blood pressure 141 mm[Hg] Ryan Yepez MD Work Phone: [facility] 06-27-2022 13:32-0400 Body height 170.2 cm Ryan Yepez MD Work Phone: 7(644)589-106792 [address] 06-27-2022 13:32-0400 Body mass index (BMI) [Ratio] 34.24 kg/m2 Ryan Yepez MD Work Phone: [facility] 06-27-2022 13:32-0400 Body temperature 98.6 [degF] Ryan Yepez MD Work Phone: [facility] 06-27-2022 13:32-0400 Body weight 99.16 kg Ryan Yepez MD Work Phone: [facility] 06-27-2022 13:32-0400 Diastolic blood pressure 78 mm[Hg] Ryan Yepez MD Work Phone: [facility] 06-27-2022 13:32-0400 Heart rate 77 /min Ryan Yepez MD Work Phone: [facility] 06-27-2022 13:32-0400 SaO2% (BldA) [Mass fraction] 95 % Ryan Yepez MD Work Phone: [facility] 06-27-2022 13:32-0400 Systolic blood pressure 121 mm[Hg] Ryan Yepez MD Work Phone: [facility] 06-27-2022 10:52-0400 Body height 170.2 cm Rena Brewster RN [facility] 06-27-2022 10:52-0400 Body mass index (BMI) [Ratio] 34.46 kg/m2 Rena Brewster RN [facility] 06-27-2022 10:52-0400 Body temperature 98.2 [degF] Rena Brewster RN [facility] 06-27-2022 10:52-0400 Body weight 99.79 kg Rena Brewster RN [facility] 06-27-2022 10:52-0400 Diastolic blood pressure 73 mm[Hg] Rena Brewster RN [facility] 06-27-2022 10:52-0400 Heart rate 78 /min Rena Brewster RN [facility] 06-27-2022 10:52-0400 Respiratory rate 20 /min Rena Brewster RN [facility] 06-27-2022 10:52-0400 SaO2% (BldA) [Mass fraction] 97 % Rena Brewster RN [facility] 06-27-2022 10:52-0400 Systolic blood pressure 135 mm[Hg] Rena Brewster RN [facility] 06-12-2022 14:23-0400 Body mass index (BMI) [Ratio] 34.59 kg/m2 Steve LEIGH Work Phone: [facility] 06-12-2022 14:23-0400 Body temperature 97 [degF] Steve LEIGH Work Phone: [facility] 06-12-2022 14:23-0400 Body weight 100.2 kg Steve LEIGH Work Phone: [facility] 06-12-2022 14:23-0400 Diastolic blood pressure 66 mm[Hg] Steve Latham MBBS Work Phone: [facility] 06-12-2022 14:23-0400 Heart rate 63 /min Steve Latham MBBS Work Phone: [facility] 06-12-2022 14:23-0400 Systolic blood pressure 133 mm[Hg] Steve Latham MBBS Work Phone: [facility] 05-20-2022 15:21-0400 Body temperature 97.9 [degF] Gian Villatoro MD Work Phone: 9(504)364-993312 [place] [address] 05-20-2022 15:21-0400 Diastolic blood pressure 64 mm[Hg] Gian Villatoro MD Work Phone: 2(222)820-919012 [place] [address] 05-20-2022 15:21-0400 Heart rate 55 /min Gian Villatoro MD Work Phone: 6(358)923-242112 [place] [address] 05-20-2022 15:21-0400 Respiratory rate 15 /min Gian Villatoro MD Work Phone: 8(762)735-861412 [place] [address] 05-20-2022 15:21-0400 SaO2% (BldA) [Mass fraction] 95 % Gian Villatoro MD Work Phone: 8(911)472-748812 [place] [address] 05-20-2022 15:21-0400 Systolic blood pressure 145 mm[Hg] Gian Villatoro MD Work Phone: [phone])[phone] [place] [address] 05-19-2022 12:15-0400 Body mass index (BMI) [Ratio] 35.87 kg/m2 Gian Villatoro MD Work Phone: 0(333)187-561412 [place] [address] 05-19-2022 12:15-0400 Body weight 103.92 kg Gian Villatoro MD Work Phone: 4(896)[phone] [place] [address] Comment on above: standing scale 05-16-2022 16:19-0400 Body height 170.2 cm Gian Villatoro MD Work Phone: [facility] 10-19-2018 08:44-0500 BMI (Body Mass Index) 26.58 kg/m2 [facility] Work Phone: 10-19-2018 08:44-0500 BP Diastolic 76 mm[Hg] [facility] Work Phone: 10-19-2018 08:44-0500 BP Systolic 144 mm[Hg] [facility] Work Phone: 10-19-2018 08:44-0500 Height 172.7 cm [facility] Work Phone: 10-19-2018 08:44-0500 Pulse (Heart Rate) 92 /min [facility] Work Phone: 10-19-2018 08:44-0500 Pulse Oximetry 99 % [facility] Work Phone: 10-19-2018 08:44-0500 Respiratory Rate 16 /min [facility] Work Phone: 10-19-2018 08:44-0500 Weight 79.29 kg [facility] Work Phone: 10-12-2018 09:50-0500 BMI (Body Mass Index) 27.24 kg/m2 [facility] Work Phone: 10-12-2018 09:50-0500 Body Temperature 98.6 [degF] [facility] Work Phone: 10-12-2018 09:50-0500 BP Diastolic 80 mm[Hg] Elmahdi [facility] Work Phone: 10-12-2018 09:50-0500 BP Systolic 157 mm[Hg] [facility] Work Phone: 10-12-2018 09:50-0500 Height 169.5 cm [facility] Work Phone: 10-12-2018 09:50-0500 Pulse (Heart Rate) 94 /min [facility] Work Phone: 10-12-2018 09:50-0500 Weight 78.29 kg [facility] Work Phone: Encounters Encounter Date Encounter Type Care Provider Facility Start: 01-06-2024 End: 01-06-2024 ambulatory ZULY MARISSAZ Not Available Start: 01-06-2024 End: 01-06-2024 Office outpatient visit 25 minutes Zuly Bruno DIABETOLOGIST Work Phone: [facility] Comment on above: Bilateral lower extr emity edema (Primary Dx); 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); Atherosclerosis 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); Obesity (BMI 30-39.9); DALRENE (obstructive sleep apnea); Tremor; Immunocompromised ([facility] Primary hypertension ([facility]); Shortness of breath Start: 01-01-2024 Clinisync Result Encounter Generic External Data Provider [facility] External Department Unsolicited Start: 01-01-2024 Clinisync Result Encounter Generic External Data Provider [facility] External Department Unsolicited Start: 11-03-2023 End: 11-03-2023 ambulatory ZULY KRISTOPHERHHOLZ Not Available Start: 10-06-2023 ambulatory Angel Fete RPh,PharmD [facility] [place] Start: 10-06-2023 Patient encounter procedure Angel Fete RPh,PharmD [facility] [place] Start: 09-29-2023 [facility] Start: 09-24-2023 [facility] Start: 09-23-2023 ambulatory ZULY [facility] Facility: [facility] Start: 09-15-2023 [facility]ulatory [facility] Start: 08-28-2023 End: 09-11-2023 Evaluation and management of inpatient STEVE CASTILLOI Facility:[facility] Start: 08-28-2023 End: 09-11-2023 Evaluation and management of inpatient Steve Latham MBBS Work Phone: [id number] Start: 08-28-2023 ambulatory STEVE S YEISON Facility:[facility] Start: 08-28-2023 End: 08-28-2023 Office outpatient visit 25 minutes Steve Latham MBBS Work Phone: [facility] Comment on above: Immunosuppressed sta tus (Primary Dx); Kidney replaced by transplant; Aftercare following organ transplant; High risk medication use; Other general symptoms and signs; Abnormal blood chemistry; Hypertension secondary to other renal disorders Start: 08-19-2023 ambulatory Meka rueda [facility] [place] Start: 08-19-2023 Patient encounter procedure Meka Munoz [facility] [place] Start: 06-12-2023 ambulatory REBECA M PRETTY Fisher ty:[facility] Start: 06-12-2023 End: 06-12-2023 Office outpatient visit 25 minutes Steve Latham MBBS Work Phone: [facility] Comment on above: 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) Start: 06-10-2023 ambulatory Maren Bar RPh,PharmD [facility] [place] Start: 06-10-2023 Patient encounter procedure Maren Bar RPlydia,PharmD [facility] [place] Start: 05-26-2023 ambulatory ZULY BRUNO Facility: [facility] Start: 04-28-2023 End: 04-29-[address] DOCTOR EVANS Facility: Start: 04-13-2023 End: 04-13-2023 ambulatory [facility] Start: 03-12-2023 ambulatory Angel Fete RPh,PharmD [facility] [place] Start: 03-12-2023 Patient encounter procedure Angel Fete RPh,PharmD [facility] [place] Start: 03-10-2023 ambulatory Angel Fete RPh,PharmD [facility] [place] Start: 03-10-2023 Patient encounter procedure Angel Calee RPh,PharmD Pharmacy [facility]patient [facility] [place] Start: 03-02-2023 End: 03-03-[address] DOCTOR EVANS Facility:[facility]1 Start: 01-16-2023 ambulatory ZULY BRUNO Facility: [facility] Start: 01-16-2023 End: 01-16-2023 Office outpatient visit 25 minutes Daisha Max DO Work Phone: [facility] Comment on above: Abnormal blood chemi stry [...] MD Work Phone: [facility] [place] Comment on above: BPH with obstruction /lower urinary tract symptoms (Primary Dx); Encounter for screening for malignant neoplasm of prostate Start: 08-28-2022 End: 08-29-2022 ambulatory ROB BRUNO Facility:[facility]1 Start: 08-14-2022 End: 08-15-[address] DOCTOR EVANS Facility:[facility] Start: 07-07-2022 End: 07-07-2022 Patient encounter procedure Ryan Yepez MD Work Phone: [facility] [place] Comment on above: Other hydronephrosis (Primary Dx); [...] MD Work Phone: [facility] [place] Comment on above: Other hydronephrosis (Primary Dx) [...] Phone: [facility] Comment on above: Immunosuppressed sta tus (Primary [...] of inpatient Gian Villatoro MD Work Phone: [phone] Comment on above: FAYE (acute kidney in jury) Start: 05-15-2022 End: 05-15-[address] GEORGE ALEXANDER Facility:[facility] Start: 05-11-2022 End: 05-11-[address] GEORGE ALEXANDER Facility: Start: 03-14-2022 ambulatory Comfort Rivera [facility] Work Phone: Pharm[facility]patient [facility] [place] Start: 03-14-2022 Patient encounter procedure Comfort Rivera [facility] Work Phone: [facility] [place] Start: 06-14-2021 End: 06-14-2021 ambulatory Comfort Rivera [facility] Work Phone: [facility] Start: 06-14-2021 Patient encounter procedure Comfort Rivera [facility] Work Phone: [facility] Start: 01-20-2020 End: 01-27-2020 Patient encounter procedure PEPE CASE Facility:[facility] Start: 01-06-2020 End: 01-07-2020 Patient encounter procedure [facility] Start: 01-06-2020 End: 01-06-2020 Subsequent hospital visit by physician [facility] Start: 10-24-2019 End: 10-25-2019 Patient encounter procedure TANA Colón [facility] Start: 10-24-2019 End: 10-24-2019 Subsequent hospital visit by physician [facility] Start: 08-27-2019 End: 08-28-2019 Patient encounter procedure [facility] Start: 08-27-2019 End: 08-27-2019 Subsequent hospital visit by physician [facility] Start: 08-08-2019 End: 08-09-2019 Patient encounter procedure [facility] Start: 08-08-2019 End: 08-08-2019 Subsequent hospital visit by physician [facility] Start: 08-03-2019 End: 08-04-2019 Patient encounter procedure [facility] Start: 08-03-2019 End: 08-03-2019 Subsequent hospital visit by physician [facility] Start: 08-01-2019 End: 08-02-2019 Patient encounter procedure [facility] Start: 08-01-2019 End: 08-01-2019 Subsequent hospital visit by physician FRANZ [facility] Start: 06-10-2019 End: 06-11-2019 Patient encounter procedure [facility] Start: 06-01-2019 End: 06-02-2019 Patient encounter procedure [facility] Start: 01-14-2019 End: 01-15-2019 Patient encounter procedure [facility] Start: 11-17-2018 End: 11-17-2018 Patient encounter procedure Melania Dangelo [facility] Pre Transplant Office Comment on above: Social Work Follow-u p Start: 10-19-2018 End: 10-19-2018 Patient encounter Autumn [facility] Pre Transplant Office Comment on above: Cirrhosis of liver w ithout ascites, unspecified hepatic cirrhosis type (Primary Dx) Start: 10-19-2018 End: 10-19-2018 Office outpatient visit 25 minutes Christin Elizabeth Work Phone: Division of Gastroenterology and Hepatology [place] Comment on above: Alcoholic cirrhosis of liver without ascites (Primary Dx); Pre-transplant evaluation for liver transplant; Hepatic encephalopathy Start: 10-13-2018 End: 10-13-2018 Patient encounter procedure Autumn [facility] Pre Transplant Office Comment on above: Reschedule Outside Medical Allan rds Request Start: 10-12-2018 End: 10-12-2018 Patient encounter procedure Sophie Singerhaja [facility] Pre Transplant Office Comment on above: Alcoholic cirrhosis, unspecified whether ascites present (Primary Dx); Pre-transplant evaluation for liver transplant Start: 10-12-2018 End: 10-12-2018 Office outpatient new 60 minutes Alfredito Restrepo Work Phone: [facility] Pre Transplant Office Comment on above: Alcoholic cirrhosis, unspecified whether ascites present; ESRD (end stage renal disease) on dialysis; Pre-transplant evaluation for liver transplant Start: 10-06-2018 End: 10-06-2018 Patient encounter procedure Yovani Orr Work Phone: Department of Radiology Comment on above: Canceled (Insurance Company Redirected Pt) Start: 10-05-2018 Patient encounter status Comfort Rivera [facility] Work Phone: [facility] Procedures Date Procedure Procedure Detail Performing Clinician Start: 01-01-2024 ALL CBC WITH AUTO DIFF Generic External Data Provider Start: 09-23-2023 Follow-up visit Follow-up YOBANI ALAMO Start: 09-11-2023 Glucose measurement, blood Kevin [...] blood Crow Diaz MD Work Phone: Start: 09-02-2023 End: 09-02-2023 Cytp slctv cell enhancement interpj [...] Phone: Start: 08-29-2023 Assay of magnesium Milton gris Kelly MD Work Phone: Start: 08-29-2023 Hepatic [...] AURIS SCREEN BY PCR Carol Ann Capps HEAT ENGINEERING TEACHER-EDUCATION PROGRAM SPECIALIST Work Phone: Start: 08-28-2023 CBC AND ELECTRONIC [...] By: #### C MP #### [facility] [address] [place] [address] Dr. Dwight Waters Start: 07-07-2022 Rmvl nfros tube req fluoro guidance Ryan Yepez MD Work Phone: Start: 06-27-2022 Ct abdomen & pelvis w/o contrast material Evan Byrd MD Work Phone: Start: 06-12-2022 Culture bct isol&prs mptv id isolate ea urine Steve S Yeison MBBS Work Phone: Start: 06-12-2022 EXTRA MICRO Steve S Nor i MBBS Work Phone: Start: 06-12-2022 Hemoglobin glycosyla rukhsana a1c Steve S Yeison MBBS Work Phone: Start: 06-12-2022 Hepatic function panel Yovani Orr MD Work Phone: Start: 06-12-2022 URINALYSIS REFLEX TO CULTURE Steve S Yeison MBBS Work Phone: Start: 05-20-2022 Urography antegrade rs&i Evan Byrd MD Work Phone: Start: 05-20-2022 Assay of magnesium Milton Bennett MD Work Phone: Start: 05-19-2022 Assay [...] MICRO Vladislav sanches MD Work Phone: Start: 06-16-2022 Urnls dip stick/tabl et rgnt auto w/o [...] recipient S/P liver trans plant Comfort Rivera [facility] Work Phone: Start: 04-08-2020 H/O: liver recipient Liver tra nsplant recipient Comfort Rivera [facility] Work Phone: Start: 01-06-2020 Potassium serum plasma/whole blood ROB CAREY Start: 01-06-2020 Potassium serum plasma/whole blood Rena Ross Work Phone: Start: 10-24-2019 HEMOGLOBIN AND HEMAT OCRIT, BLOOD ROB CAREY Start: 10-24-2019 Blood count hemoglobin Tana Katarzyna Abel Work Phone: Start: 09-20-2019 Colonoscopy Generic Pr ovider Start: 08-27-2019 Blood count hemoglobin Rena Rist Work Phone: Start: 08-08-2019 Blood count hemoglobin ROB KASMANI Start: 08-08-2019 Blood count hemoglobin Rob Kasmani Work Phone: Start: 08-03-2019 Hemoglobin glycosyla rukhsnaa a1c ROB KASMANI Start: 08-03-2019 Hemoglobin glycosyla rukhsana a1c Rob Kasmani Work Phone: Start: 08-01-2019 Blood count hemoglobin Rob Kasmani Work Phone: Start: 07-25-2019 History of renal transplant -donor kidney transplant recipient Comfort Rivera [facility] Work Phone: Start: 06-10-2019 HEMOGLOBIN AND HEMAT OCRIT, BLOOD ROB KASMANI Start: 06-01-2019 Blood count hemoglobin ROB KASMANI Start: 03-22-2019 Lipid 1996 panel - S fabricio or Plasma Comfort Rivera [facility] Work Phone: Start: 01-14-2019 Potassium serum plasma/whole blood ROB NIELSMANI Start: 10-19-2018 End: 10-19-2018 Ultrasonography of abdomen Yovani Magalie Orr Work Phone: Start: 10-12-2018 End: 10-12-2018 Blood typing serologic abo Yovani Orr Work Phone: Start: 10-12-2018 End: 10-12-2018 Hemoglobin glycosylated a1c Yovani Magalie Orr Work Phone: Start: 10-12-2018 End: 10-12-2018 25 hydroxy includes fractions if performed Yovani Mejias Dominga Work Phone: Start: 10-12-2018 End: 10-12-2018 Albumin serum plasma/whole blood Yovani Mejias Dominga Work Phone: Start: 10-12-2018 End: 10-12-2018 Alpha-fetoprotein serum Yovani Magalie Dominga Work Phone: Start: 10-12-2018 End: 10-12-2018 Antibody cytomegalovirus cmv Yovani Mejias Dominga Work Phone: Start: 10-12-2018 End: 10-12-2018 Antibody dann-montes eb virus viral capsid vca Yovani Orr Work Phone: Start: 10-12-2018 End: 10-12-2018 Antibody herpes smplx type 1 Yovani Orr Work Phone: Start: 10-12-2018 End: 10-12-2018 Antibody rubeola Yovani Mejias APS Work Phone: Start: 10-12-2018 End: 10-12-2018 Antibody varicella-zoster Yovani Mejias APS Work Phone: Start: 10-12-2018 End: 10-12-2018 Assay of ethanol Yovani Mejias APS Work Phone: Start: 10-12-2018 End: 10-12-2018 Assay of ferritin Yovani Mejias APS Work Phone: Start: 10-12-2018 End: 10-12-2018 Assay of iron Yovani Meijas APS Work Phone: Start: 10-12-2018 End: 10-12-2018 Assay of parathormone Yovani Mejias APS Work Phone: Start: 10-12-2018 End: 10-12-2018 Assay of phosphatase alkaline Yovani Orr Work Phone: Start: 10-12-2018 End: 10-12-2018 Bilirubin total Yovani Mejias [employer] Work Phone: Start: 10-12-2018 End: 10-12-2018 Calcium total Yovani Mejias APS Work Phone: Start: 10-12-2018 End: 10-12-2018 CBC, EDIF, PLATELET Yovani Orr Work Phone: Start: 10-12-2018 End: 10-12-2018 Creatinine blood Yovani Orr Work Phone: Start: 10-12-2018 End: 10-12-2018 Drug screening cannabinoids natural Yovani Orr Work Phone: Start: 10-12-2018 End: 10-12-2018 Hepatitis a antibody haab Yovani Orr Work Phone: Start: 10-12-2018 End: 10-12-2018 Hepatitis b core antibody hbcab total Yovani Orr Work Phone: Start: 10-12-2018 End: 10-12-2018 Hepatitis b surf antibody hbsab Yovani Orr Work Phone: Start: 10-12-2018 End: 10-12-2018 Hepatitis c antibody Yovani Orr Work Phone: Start: 10-12-2018 End: 10-12-2018 Iaad ia hepatitis b surface antigen Yovani Orr Work Phone: Start: 10-12-2018 End: 10-12-2018 Iaad ia hiv-1 ag w/hiv-1 & hiv-2 antbdy single Yovani Orr Work Phone: Start: 10-12-2018 End: 10-12-2018 PSA screening Yovani Orr Work Phone: Start: 10-12-2018 End: 10-12-2018 Thromboplastin time partial plasma/whole blood Yovani Orr Work Phone: Start: 10-12-2018 End: 10-12-2018 Assay of ethanol Yovani Orr Work Phone: Start: 10-12-2018 End: 10-12-2018 Drug/substance definitive qual/quant nos 7/more Yovani Orr Work Phone: Start: 10-12-2018 End: 10-12-2018 Protein total xcpt refractometry urine Yovani Orr Work Phone: Start: 10-12-2018 End: 10-12-2018 VOLUME MEASURED Yovani Orr Work Phone: H/O: liver recipient Liver repla vida by transplant Steve Latham MBAPOORVA Work Phone: H/O: liver recipient Liver trans plant recipient Daisha Max DO Work Phone: H/O: liver recipient S/P liver transplant Generic Provider History of renal transplant Kidney replaced by transplant Steve Colón Yeison MORENOBS Work Phone: History of renal transplant -donor kidney transplant recipient Ryan Yepez MD Work Phone: History of renal transplant Kidney replaced by transplant Daisha Max DO Work Phone: History of renal transplant Kidney replaced by transplant Steve S Yeison MBBS Work Phone: History of renal transplant Kidney replaced by transplant Steve Colón Yeison MBBS Work Phone: History of renal transplant -donor kidney transplant recipient Steve Colón Yeison MORENOBS Work Phone: Plan of Treatment Date Care Activity Detail Author Start: 09-20-2029 Screening for malignant neoplasm of colon [facility] Start: 08-31-2024 Screening for malignant neoplasm of lung [facility] Start: 06-17-2024 End: 06-17-2024 [facility] Start: 06-17-2024 End: 06-17-2024 Patient encounter procedure [facility] Start: 03-22-2024 Fasting lipid profile LIPID SCREENING [facility] Start: 03-22-2024 Lipid panel [facility] Start: 02-11-2024 End: 02-11-2024 Patient encounter procedure 02/11/2024 10:30 AM EDT Office Visit [facility] [address] [place] [address] Zuly Bruno NP [address] [place] [address] [facility] Start: 01-15-2024 End: 01-15-2024 [facility] Start: 01-15-2024 End: 01-15-2024 Patient encounter procedure [facility] Start: 01-06-2024 End: 01-06-2026 Echocardiogram 2D complete Echocardiogram 2D complete Echocardiography Routine DARLENE (obstructive sleep apnea) Primary hypertension (CMS/HCC) Bilateral lower extremity edema Shortness of breath Expected: 01/06/2024 (Approximate), Expires: 01/06/2026 [facility] Work Phone: Comment on above: Expected: 01/06/2024 (Approximate), Expi res: 01/06/2026 Start: 01-06-2024 End: 01-06-2024 Patient encounter procedure 01/06/2024 9:00 AM EST [facility] [address] [place] [phone] Zuly Bruno, DIABETOLOGIST [address] [place] [phone] [facility] Start: 12-08-2023 End: 09-07-2024 CT Chest WO contrast [facility] Work Phone: Start: 09-23-2023 End: 09-23-2023 ambulatory [facility] Start: 09-23-2023 End: 09-23-2023 Telemedicine consultation with patient 09/23/2023 4:00 PM EDT Telemedicine [facility] [address] [phone] Hakeem Alamo MD [address] [address] [facility] Start: 09-15-2023 End: 09-10-2024 ITRACONAZOLE LEVEL [facility] Start: 08-25-2023 End: 08-25-2024 ALLOSCREEN RECIPIENT (POST TX PRA) ALLOSCREEN RECIPIENT (POST TX PRA) Lab Routine Kidney replaced by transplant Aftercare following organ transplant Immunosuppressed status High risk medication use Other general symptoms and signs Abnormal blood chemistry Expected: 08/25/2023, Expires: 08/25/2024 [facility] Comment on above: Expected: 08/25/2023, Expires: Start: 07-31-2023 Influenza vaccination [facility] Start: 06-12-2023 End: 06-12-2023 Patient encounter procedure 06/12/2023 Office Visit Transplant Surgery Steve Latham MBBS [address] [place] [address] [facility] Transplant [facility] Start: 03-11-2023 End: 03-11-2023 Telemedicine consultation with patient 03/11/2023 Telemedicine Urology Ryan Yepez MD [address] [facility] [address] [place] [address] [facility] [place] Start: 01-16-2023 End: 01-16-2023 Patient encounter procedure 01/16/2023 Office Visit Transplant Surgery [facility] Transplant [facility] Start: 10-31-2022 End: 10-31-2022 Patient encounter procedure 10/31/2022 Office Visit Transplant Surgery Steve Latham MBBS [address] [place] [address] [facility] Transplant [facility] Start: 09-10-2022 End: 09-10-2023 PSA screening PSA, SCREENING Lab Routine BPH with obstruction/lower urinary tract symptoms Encounter for screening for malignant neoplasm of prostate Expected: 09/10/2022 (Approximate), Expires: 09/10/2023 [facility] Comment on above: Expected: 09/10/2022 (Approximate), Expi res: 09/10/2023 Start: 08-11-2022 End: 08-11-2022 Patient encounter procedure 08/11/2022 Office Visit Urology Ryan Yepez MD [address] [facility] [address] [place] [address] [facility] [place] Start: 07-31-2022 Influenza vaccination [facility] Start: 07-07-2022 End: 07-07-2022 Patient encounter procedure 07/07/2022 Office Visit Urology Ryan Yepez MD [address] [facility] [address] [place] [id number] [facility] [place] Start: 07-07-2022 End: 07-07-2023 FLUORO IMAGING FOR UROLOGY [facility] Comment on above: Expected: 07/07/2022, Expires: 3 1 Occurrences starti ng 07/07/2022 until 07/07/2022 Start: 06-27-2022 End: 06-27-2022 Patient encounter procedure 06/27/2022 Office Visit Urology Ryan Yepez MD [address] [facility] [address] [place] [id number] [facility] Start: 06-27-2022 End: 06-27-2023 Basic metabolic 2000 panel - Serum or Plasma BASIC METABOLIC PANEL Lab Routine Other hydronephrosis Expected: 06/27/2022, Expires: 06/27/2023 [facility] Comment on above: Expected: 06/27/2022, Expires: Start: 06-27-2022 End: 06-27-2022 Patient encounter procedure 06/27/2022 Appointment Computerized Tomography Scan Ryan Yepez MD [address] [facility] [address] [place] [id number] Department of Radiology Start: 06-15-2022 End: 05-16-2023 CT Abdomen and Pelvis WO contrast CT ABDOMEN/PELVIS WITHOUT CONTRAST Imaging Routine FAYE (acute kidney injury) Expected: 06/15/2022 (Approximate), Expires: 05/16/2023 [facility] Work Phone: Comment on above: Expected: 06/15/2022 (Approximate), Expi res: 05/16/2023 Start: 06-12-2022 End: 06-12-2022 Patient encounter procedure 06/12/2022 Office Visit Transplant Surgery Steve Latham MBBS [address] [place] [phone] [facility] Transplant [facility] Start: 06-11-2022 End: 06-11-2023 BK VIRUS DNA QN, PCR, PLASMA BK VIRUS DNA QN, PCR, PLASMA Lab Routine Kidney replaced by transplant Liver replaced by transplant Abnormal blood chemistry Expected: 06/11/2022, Expires: 06/11/2023 [facility] Comment on above: Expected: 06/11/2022, Expires: Start: 06-04-2022 End: 06-04-2022 Patient encounter procedure 06/04/2022 Office Visit [facility] Start: 10-18-2021 End: 10-18-2021 Patient encounter procedure 10/18/2021 Office Visit Transplant Surgery Steve Latham MBBS [address] [place] [phone] [facility] Transplant [facility] Start: 07-31-2021 Influenza vaccination INFLUENZA VACCINE (#1) [facility] Start: 07-26-2021 End: 07-26-2021 Patient encounter procedure 07/26/2021 Office Visit Transplant Surgery [facility] Start: 2021 Prostate specific antigen measurement [facility] Start: 2021 Screening for malignant neoplasm of lung LUNG CANCER SCREENING [facility] Start: 2021 Zoster vaccine hzv live for subcutaneous use ZOSTER (SHINGLES) VACCINE (1 of 2) [facility] Start: 09-20-2020 Colonoscopy COLORECTAL CANCER SCREENING DISCUSSION [facility] Start: 09-20-2020 Screening for malignant neoplasm of colon [facility] Start: 07-31-2019 Influenza vaccination Flu vaccine (#1) [place] Start: 05-22-2019 Annual Wellness Visit (AWV) Annual Wellness Visit (AWV) [place] Start: 04-18-2019 End: 10-19-2019 Ultrasonography of abdomen US ABDOMEN RUQ/LIVER/GB Routine Cirrhosis of liver without ascites, unspecified hepatic cirrhosis type Expected: 04/18/2019 (Approximate), Expires: 10/19/2019 [facility] Work Phone: Comment on above: Expected: 04/18/2019 (Approximate), Expi res: 10/19/2019 Start: 01-25-2019 End: 01-25-2019 Ambulatory 01/25/2019 Office Visit Gastroenterology Christin Elizabeth, HEAT ENGINEERING TEACHER-SURGICAL GARMENT ASSEMBLER [address] [place] [address] Division of Gastroenterology and Hepatology [place] Start: 11-19-2018 End: 11-19-2018 Ambulatory 11/19/2018 Appointment [facility] Start: 11-19-2018 End: 11-19-2018 Ambulatory [facility] Start: 10-19-2018 End: 10-19-2018 Ambulatory Ultrasound Jakob Start: 10-12-2018 End: 10-12-2019 Hemoglobin A1c/Hemoglobin.total mass fraction (Bld) HEMOGLOBIN A1C Routine Alcoholic cirrhosis, unspecified whether ascites present Pre-transplant evaluation for liver transplant Expected: 10/12/2018, Expires: 10/12/2019 [facility] Work Phone: Comment on above: Expected: 10/12/2018, Expires: Start: 10-12-2018 End: 10-12-2019 TYPE AND SCREEN - NOT FOR TRANSFUSION TYPE AND SCREEN - NOT FOR TRANSFUSION Routine Alcoholic cirrhosis, unspecified whether ascites present Pre-transplant evaluation for liver transplant Expected: 10/12/2018, Expires: 10/12/2019 [facility] Work Phone: Comment on above: Expected: 10/12/2018, Expires: 9 Start: 07-31-2018 Influenza vaccination INFLUENZA VACCINE (#1) [facility] Work Phone: Start: 2011 Fasting lipid profile LIPID SCREENING [facility] Work Phone: Start: 2011 Lipid screen Lipid screen [place], [place] Start: 1990 DTaP/Tdap/Td vaccine (1 - Tdap) DTaP/Tdap/Td vaccine (1 - Tdap) [place] Start: 1990 Hepatitis B Vaccine (1 of 3 - Risk Recombivax 3-dose series) Hepatitis B Vaccine (1 of 3 - Risk Recombivax 3-dose series) [place] Start: 1990 Third diphtheria, tetanus and acellular pertussis (DTaP) vaccination [facility] Start: 1990 Zoster vaccine hzv live for subcutaneous use ZOSTER (SHINGLES) VACCINE (1 of 2) [facility] Start: 1990 [facility] Start: 1989 Tetanus vaccination TETANUS [facility] Start: 1986 HIV screen HIV screen [place], [place] Start: 02-17-1984 HIV screening HIV SCREENING DISCUSSION [facility] Work Phone: Start: 1983 COVID-19 VACCINE (1) COVID-19 VACCINE (1) [facility] Start: 1982 DTaP/Tdap/Td vaccine (1 - Tdap) DTaP/Tdap/Td vaccine (1 - Tdap) [place] Start: 1977 Pneumococcal 0-64 years Vaccine (1 of 3 - PCV13) Pneumococcal 0-64 years Vaccine (1 of 3 - PCV13) [place] Start: 1977 PNEUMOCOCCAL VACCINE SERIES (1 - PCV) PNEUMOCOCCAL VACCINE SERIES (1 - PCV) [facility] Start: 1977 [facility] Start: 02-17-1976 COVID-19 VACCINE (#1) COVID-19 VACCINE (#1) [facility] Start: 02-17-1976 [facility] Start: 1971 COVID-19 VACCINE (#1) COVID-19 VACCINE (#1) [facility] Start: 1971 Hepatitis B vaccination HEP B VACCINE (1 of 3 - 3-dose series) [facility] Start: 1971 Medicare Annual Wellness (AWV) Medicare Annual Wellness (AWV) [facility] Start: 1971 Screening for malignant neoplasm of colon [facility] Start: 1971 Tetanus vaccination [facility] BK VIRUS DNA QN, PCR , PLASMA BK VIRUS DNA QN, PCR, PLASMA Lab Routine Kidney replaced by transplant Liver replaced by transplant Abnormal blood chemistry 06/12/2022 3:38 PM EDT [facility] CALCULI, URINARY (KIDNEY STONE) CALCULI, URINARY (KIDNEY STONE) Fluids Routine 05/19/2022 8:16 AM EDT [facility] Work Phone: CANNABINOIDS, QUANT (URINE)THC CONFIRMATION CANNABINOIDS, QUANT (URINE)THC CONFIRMATION Routine Alcoholic cirrhosis, unspecified whether ascites present ESRD (end stage renal disease) on dialysis Pre-transplant evaluation for liver transplant 10/12/2018 12:57 PM [facility] Work Phone: End: 09-10-2024 CHEM 6 (LYTES, BUN CREA) [facility] EBV VCA IGG AB EBV VCA IGG AB R outine Alcoholic cirrhosis, unspecified whether ascites present ESRD (end stage renal disease) on dialysis Pre-transplant evaluation for liver transplant 10/12/2018 12:57 PM [facility] Work Phone: Fungus identified in Unspecified specimen by Culture [facility] HLA TYPING (SOLID ORGAN) HLA TYPING (SOLID ORGAN) Routine Alcoholic cirrhosis, unspecified whether ascites present ESRD (end stage renal disease) on dialysis Pre-transplant evaluation for liver transplant 10/12/2018 12:57 PM [facility] Work Phone: HSV 1 AND 2 IGG ANTIBODY HSV 1 AND 2 IGG ANTIBODY Routine Alcoholic cirrhosis, unspecified whether ascites present ESRD (end stage renal disease) on dialysis Pre-transplant evaluation for liver transplant 10/12/2018 12:57 PM [facility] Work Phone: 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 specific culture [facility] PLACEMENT NEPHROSTOM Y CATHETER PERCUTANEOUS W/ IMAGE GUIDANCE PLACEMENT NEPHROSTOMY CATHETER PERCUTANEOUS W/ IMAGE GUIDANCE Imaging Routine Hydronephrosis due to obstruction of ureteral orifice FAYE (acute kidney injury) 05/17/2022 11:08 AM EDT [facility] ID POST VOID RESIDUAL ID POST VO ID RESIDUAL ID - OFFICE PERFORMED Routine BPH with obstruction/lower urinary tract symptoms Ordered: 09/10/2022 [facility] Comment on above: Ordered: 09/10/2022 PTH INTACT PTH INTACT Routi ne Alcoholic cirrhosis, unspecified whether ascites present ESRD (end stage renal disease) on dialysis Pre-transplant evaluation for liver transplant 10/12/2018 12:57 PM [facility] Work Phone: RUBEOLA IGG AB (IMMU NE STATUS) RUBEOLA IGG AB (IMMUNE STATUS) Routine Alcoholic cirrhosis, unspecified whether ascites present ESRD (end stage renal disease) on dialysis Pre-transplant evaluation for liver transplant 10/12/2018 12:57 PM [facility] Work Phone: End: 09-10-2024 TACROLIMUS LEVEL, TROUGH (PRE DRUG LEVEL) [facility] VARICELLA IGG AB (IM M STATUS) VARICELLA IGG AB (IMM STATUS) Routine Alcoholic cirrhosis, unspecified whether ascites present ESRD (end stage renal disease) on dialysis Pre-transplant evaluation for liver transplant 10/12/2018 12:57 PM [facility] Work Phone: Immunizations Immunization Date Immunization Notes Care Provider Fa jimmyty 11-03-2023 influenza virus vacc ine, unspecified formulation Generic Provider [facility] 11-03-2023 Moderna SARS-CoV-2 50mcg/0.5mL Booster Generic Provider [facility] Payers Date Payer Category Payer Unknown [id number] 2019 Unknown [facility] [id number] 2019-Present [id number] 2018 Medicaid [place]ID [place] [facility] DEPT OF JOB xxxxxxxxxxxx 2018-Present [phone] [address] [place] [address] xxxxxxxxxxxx [id number] [id number] 2018 Medicaid MEDICAID MEDICAI [id number] 2018-Present [address] [place] [address] [id number] .[id number] 2018 Medicaid [id number] [id number] .[id number] 2018 Medicare MEDICARE MEDICAR E PART A AND B xxxxxxxxxxx 2018-Present [phone] [address] [address] [place] [address] xxxxxxxxxxx [id number] .[id number] 2018 Medicare [id number] 2018 Medicare MEDICARE MEDICAR E A AND B [id number] 2018-Present [address] [place] [address] [id number] .[id number] 2018 Medicare [id number]. 1.13.172.2.7.3 .554439.315 1971 Unknown [id number] 2.16.840.1.416458.3.579.2.173 1971 Unknown [id number] 2.16.840.1.938475.3.579.2.173 1971 Unknown [id number] 2.16.840.1.614572.3.579.2.173 1971 Unknown [id number] 2.16.840.1.791771.3.579.2.173 1971 Unknown [id number] 2.16.840.1.310666.3.579.2.173 1971 Unknown [id number] 2.16.840.1.205471.3.579.2.173 1971 Unknown [id number] 2.16.840.1.551048.3.579.2.173 1971 Unknown [id number] 2.16.840.1.956579.3.579.2.173 1971 Unknown [id number] 2.16.840.1.834129.3.579.2.647 1971 Unknown [id number] 2.16.840.1.736860.3.579.2.593 1971 Unknown [id number] 2.16.840.1.506571.3.579.2.593 1971 Unknown [id number] 2.16.840.1.145570.3.579.2.593 1971 Unknown [id number] 2.16.840.1.840970.3.579.2.593 1971 Unknown [id number] 2.16.840.1.397589.3.579.2.593 1971 Unknown [id number] 2.16.840.1.286363.3.579.2.593 1971 Unknown [id number] 2.16.840.1.542353.3.579.2.593 1971 Unknown [id number] 2.16.840.1.345500.3.579.2.593 1971 Unknown [id number] 2.16.840.1.716016.3.579.2.593 1971 Unknown [id number] 2.16.840.1.993974.3.579.2.593 1971 Unknown [id number] 2.16.840.1.613287.3.579.2.593 1971 Unknown [id number] 2.16.840.1.203191.3.579.2.593 1971 Unknown [id number] 2.16.840.1.926051.3.579.2.593 1971 Unknown [id number] 2.16.840.1.373531.3.579.2.593 1971 Unknown [id number] 2.16.840.1.044570.3.579.2.593 1971 Unknown [id number] 2.16.840.1.871301.3.579.2.594 1971 Unknown [id number] 2.16.840.1.926113.3.579.2.594 1971 Unknown [id number] 2.16.840.1.295767.3.579.2.594 1971 Unknown [id number] 2.16.840.1.737557.3.579.2.594 1971 Unknown [id number] 2.16.840.1.958016.3.579.2.594 1971 Unknown [id number] 2.16.840.1.685476.3.579.2.594 1971 Unknown [id number] 2.16.840.1.348683.3.579.2.594 1971 Unknown [id number] 2.16.840.1.006195.3.579.2.594 1971 Unknown [id number] 2.16.840.1.999968.3.579.2.594 1971 Unknown [id number] 2.16.840.1.512913.3.579.2.125 9 1971 Unknown [id number] 2.16.840.1.256260.3.579.2.125 9 1958 Medicaid [id number] 1958 Medicare [id number] Social History Date Type Detail Facility Start: 10-19-2018 End: 11-03-2023 Tobacco smoking status NHIS Former smoker [facility] Start: 07-19-1988 End: 05-14-2018 History of tobacco use Current smoker [facility] Work Phone: Start: 07-19-1988 End: 05-14-2018 History of tobacco use Cigarette Smoker [facility] Work Phone: Start: 10-19-2018 End: 10-27-2023 Cigarettes smoked current (pack per day) - Reported [facility] End: 07-19-1994 History of tobacco use Chews Tobacco [facility] Work Phone: Start: 1970 Sex Assigned At Not on file [facility] Work Phone: Start: 11-03-2018 Alcohol intake Current non-drinker of alcohol (finding) [place], [place] Start: 06-22-2018 Alcohol Comment Hx of alcoholism [place] Start: 11-03-2018 End: 10-27-2023 Alcohol intake No [facility] Start: 07-19-2018 Tobacco use and exposure Former user [facility] Start: 09-06-2020 End: 01-06-2024 Alcohol intake Ex-drinker (finding) [facility] Start: 07-19-2018 Alcohol Comment stopped 05/14/2018 [facility] Start: 05-05-2022 End: 01-16-2023 Exposure to SARS-CoV-2 (event) Not sure [facility] Start: 07-07-2018 Gender identity Identifies as male gender (finding) [facility] Start: 01-16-2022 Sexual orientation Heterosexual (finding) [facility] Start: 11-03-2023 Tobacco use and exposure Smokeless tobacco non-user [facility] Within the last year , have you been afraid of your partner or ex-partner? No [facility] Are you now , , , , never or living with a partner? Refused [facility] How often to you hav e a drink containing alcohol? Never [facility] How many standard drinks containing alcohol do you have on a typical day? Patient does not drink [facility] Do you feel stress - tense, restless, nervous, or anxious, or unable to sleep at night because your mind is troubled all the time - these days [OSQ] To some extent [facility] (I/We) worried wheth er (my/our) food would run out before (I/we) got money to buy more. Never true [facility] Start: 11-02-2023 Alcohol Comment Former [facility] Medical Equipment Procedure Code Equipment Code Equipment Original Text Equipment Identifier Dates [id number] Start: 05-23-2020 [id number] Start: 04-12-2020 ([id number] FDA Start: 05-17-2022 Comment on above: Description: Implant time-out completed by intra-procedural staff including this RN, network control technician, and performing physician. The following was completed. RN reads out loud implant type/size/ expiration date, and verbalizes location. Holds package up to tech to visually verify implant details. Tech reads back package details MD verifies verbally correct implant Time-out was completed for each coil during embolization, if applicable. Goals Date Patient Goal Desired Activity /State Personal health goal Clinical Notes 06-14-2021 to 01-06-2024 Zuly Bruno NP - 01/06/2024 9:47 AM Ren Bruno NP - 01/06/2024 9:46 AM Ren Bruno, BA - 01/06/2024 9:46 AM Ren Bruno, BA - 01/06/2024 9:45 AM ESTDischarge Instructions Note Date & Type Note Facility 01-06-2024 History of Present illness Narrative Associated Problem(s): Shortness of breath Check ECHO Associated Problem(s): Hypertension (CMS/HCC) No change in meds Check echo Associated Problem(s): Tremor I have advised pt to contact insurance company to see if they can provide a PA for pt to see neurologist in [facility] Associated Problem(s): DARLENE (obstructive sleep apnea) Continue with sleep med provider Still getting tremors SOB been on cpap in the last month and using oxygen Asking for a sleeping pill melatonin not helping Swelling in both ankles and bloated Seen neurologist on Thursday he said xray was fine any drugs he would proscribe would interfer with his trich Talked about a stimulator put in the brain The neurologist wanted to send him to [facility] neurology but it is out of network Images from the original note were not included. George Styles is a 53 y.o. male presents with chief complaint of No chief complaint on file. HPI: Here for a recheck, since last visit has seen neurology, they want to send him to Neurology at [facility] d/t tremors and potential med interactions with immunosuppresants, but neurologist not in network Has also noted increase over the last 1-2 months of shortness of breath and swelling bilat legs Feels voiding ok, wears PAP 5 hours daily, no acute chest pain, abd feels bloated at times SUBJECTIVE: MEDICATIONS: Current Outpatient Medications Medication Instructions allopurinol (Zyloprim) 100 MG tablet 2 tablets, Oral, Daily RT amLODIPine (Norvasc) 5 MG tablet 1 tablet, Oral, Daily aspirin 81 MG chewable tablet 1 tablet, Oral, Daily famotidine (Pepcid) 20 MG tablet 1 tablet, Oral, 2 times daily gabapentin (NEURONTIN) 400 mg, Oral, Nightly itraconazole (Sporanox) 10 MG/ML solution 20 mL, Oral, 2 times daily magnesium oxide (Mag-Ox) 400 MG tablet 2 tablets, Oral, Daily melatonin 3 MG tablet 1 tablet, Oral, Nightly mycophenolate (Myfortic) 360 MG EC tablet 1 tablet, Oral, Every 12 hours ondansetron (Zofran) 4 MG tablet 1 tablet, Oral, Every 8 hours PRN polyethylene glycol (PEG) 3350 (GLYCOLAX) 17 g, Oral, Daily RT Prograf 0.2 MG pack tacrolimus (PROGRAF) 0.2 mg, Oral, Daily, Twice a week (Thursday & Thursday) tamsulosin (FLOMAX) 0.4 mg, Oral, Daily ALLERGIES: Allergies Allergen Reactions Shellfish-Derived Products Swelling Patient with lip and tongue swelling. REVIEW OF SYMPTOMS: Review of Systems Constitutional: Negative for activity change, appetite change and unexpected weight change. HENT: Negative for ear pain, nosebleeds, sneezing, trouble swallowing and voice change. Eyes: Negative for pain, discharge and visual disturbance. Respiratory: Positive for shortness of breath. Negative for apnea, chest tightness and wheezing. Cardiovascular: Positive for leg swelling. Gastrointestinal: Positive for abdominal distention. Negative for blood in stool, constipation and diarrhea. Genitourinary: Negative for decreased urine volume, difficulty urinating, dysuria and hematuria. Skin: Negative for color change. Neurological: Positive for tremors. Negative for dizziness and seizures. Psychiatric/Behavioral: Negative for agitation, decreased concentration, hallucinations, self-injury and suicidal ideas. The patient is not nervous/anxious. Hematological: Negative for adenopathy. Does not bruise/bleed easily. Endocrine: Negative for cold intolerance, heat intolerance, polydipsia and polyuria. Allergic/Immunologic: Negative for environmental allergies and food allergies. PAST MEDICAL HISTORY Past Medical History: Diagnosis Date Abdominal pain, generalized Acute kidney failure (CMS/HCC) Alcoholic cirrhosis of liver with ascites (CMS/HCC) Anxiety At moderate risk for fall Chronic renal failure Cirrhosis of liver (CMS/HCC) CKD (chronic kidney disease) Complication of AV dialysis fistula Constipation in male Depression screen Diastolic dysfunction Elevated serum creatinine Elevated serum glucose Fever and chills Generalized anxiety disorder with panic attacks (CMS/HCC) GERD (gastroesophageal reflux disease) GI bleeding Hyperlipidemia (CMS/HCC) Hypertension (CMS/HCC) Incisional hernia of anterior abdominal wall without obstruction or gangrene Small umbilical hernia - non tender. Noticed first 6 months ago. Increasing in size and now with intermittent pain. Multiple surgical scars in midline - vertical and horizontal from Liver and renal transplant. Swelling/hernia -small in epigastric region -painful to touch, soft to touch. no overlying skin changes. Influenza vaccination declined Insomnia Kidney stones 11/03/2023 Left carotid bruit Obesity (BMI 30-39.9) Organ transplant 11/03/2023 Kidney and liver DARLENE (obstructive sleep apnea) 11/03/2023 Pancreatitis Peripheral neuropathy 12/03/2023 Portal hypertension (CMS/HCC) Pre-transplant evaluation for liver transplant Right nephrolithiasis S/P liver transplant (CMS/HCC) Screening for prostate cancer Takes dietary supplements Tremor 11/03/2023 Umbilical hernia Past Surgical History: Procedure Laterality Date AV FISTULA PLACEMENT Left 06/2018 LUE FL GUIDED ABDOMINAL PARACENTESIS 05/16/2018 FL GUIDED ABDOMINAL PARACENTESIS FL GUIDED ABDOMINAL PARACENTESIS 05/18/2018 FL GUIDED ABDOMINAL PARACENTESIS KIDNEY SURGERY Right 04/13/2020 LIVER TRANSPLANTATION 04/13/2020 MR ANGIOGRAM HEAD WO IV CONTRAST 05/17/2018 MR ANGIOGRAM HEAD WO IV CONTRAST ORIF ANKLE FRACTURE Right family history includes Diabetes in his brother, father, mother, and another family member; Heart disease in an other family member; Hyperlipidemia in an other family member; Hypertension in an other family member; Stroke in his father, mother, and another family member. OBJECTIVE: Visit Vitals BP 138/70 (BP Location: Right arm, Patient Position: Sitting, BP Cuff Size: Adult long) Pulse 95 Temp 97.8 F (Temporal) Resp 17 Ht 5' 7 Wt 207 lb SpO2 99% BMI 32.42 kg/m Smoking Status Former BSA 2.11 m Physical Exam Vitals reviewed. Constitutional: Appearance: Normal appearance. HENT: Head: Normocephalic. Right Ear: External ear normal. Left Ear: External ear normal. Nose: Nose normal. Mouth/Throat: Mouth: Mucous membranes are moist. Pharynx: Oropharynx is clear. Eyes: Extraocular Movements: Extraocular movements intact. Conjunctiva/sclera: Conjunctivae normal. Neck: Vascular: No carotid bruit. Cardiovascular: Rate and Rhythm: Normal rate and regular rhythm. Pulses: Normal pulses. Heart sounds: Normal heart sounds. Comments: AV fistula with +thrill and bruit Pulmonary: Effort: Pulmonary effort is normal. Breath sounds: Normal breath sounds. Abdominal: General: Bowel sounds are normal. There is no distension. Palpations: Abdomen is soft. There is no mass. Tenderness: There is no abdominal tenderness. There is no guarding or rebound. Musculoskeletal: Cervical back: Neck supple. Right lower leg: Edema (1+) present. Left lower leg: Edema (1+) present. Skin: General: Skin is warm and dry. Capillary Refill: Capillary refill takes 2 to 3 seconds. Coloration: Skin is not jaundiced. Findings: No rash. Neurological: Mental Status: He is alert. Comments: tremors Psychiatric: Mood and Affect: Mood normal. Behavior: Behavior normal. Thought Content: Thought content normal. Judgment: Judgment normal. ASSESSMENT AND PLAN: No follow-ups on file. Problem List Items Addressed This Visit Obesity (BMI 30-39.9) DARLENE (obstructive sleep apnea) - Primary Continue with sleep med provider Relevant Orders Echocardiogram 2D complete Tremor I have advised pt to contact insurance [employer] to see if they can provide a PA for pt to see neurologist in [facility] Immunocompromised (CMS/HCC) Hypertension (CMS/HCC) No change in meds Check echo Relevant Orders Echocardiogram 2D complete Bilateral lower extremity edema Relevant Orders Echocardiogram 2D complete Shortness of breath Check ECHO Relevant Orders Echocardiogram 2D complete Other Visit Diagnoses 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) Atherosclerosis 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) documented in this encounter [facility] 10-06-2023 History of Present illness Narrative [facility] [...] ; Prograf 0.2 MG Contact Info: Specialty ([place]) [phone] [facility] [phone] [facility] [phone] David [phone] Bedside Delivery ([facility]) [phone] [facility] RX OUTREACH ADVANCED: Call Information: Date and Time of Contact: 10/23/2023 2:00 PM Method of Contact: By Phone Contact Type: Prescriptions Contactor: [facility] Contactee: Patient Contact Outcome: Left message and Call back later Shipping/Pickup: Medication Name: Mycophenolate 360mg and Prograf 0.2mg Contact Info: Specialty ([place]) [phone] Jakob [phone] [facility] [phone] David [phone] Bedside Delivery ([facility]) [phone] documented in this encounter [facility] 09-11-2023 Miscellaneous Notes Pt discharged home [...] the oxygen during the night. pt will knot picker cloth his oxygen from [employer] [facility], 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 This [...] Practice Guideline (CPG) Outcome: Ongoing Flowsheets (Taken 09/07/2023422 by Wilma Hay RN) Related Risk Factors [...] Patient seen ambulating in the velaz[place] with CONSTRUCTION CONTRACTOR. Patient was mildly short of breath on [...] & HR 114. Messaged Mainor Loomis, via AllergEase secure chat, Temp 100.8. His tylenol order [...] short period of time. 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 Episode [...] Critical Care Medicine Message Mainor Loomis, via AllergEase secure chat, Good evening, just an FYI, [...] short period of time. 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 This [...] participated in the medical decision making. Mr. Stylse is a 53 y.o. male w/ PMH [...] [address] Loera here also (county library director) Dr. Diaz aware of pt's increased oxygen [...] Guideline (CPG) Outcome: Ongoing Flowsheets (Taken 08/29/2023 1046) Related Risk Factors (Breathing Pattern Ineffective): underlying condition Signs and Symptoms (Breathing Pattern Ineffective): activity intolerance breathing pattern altered Goal: Effective Oxygenation/Ventilation Description: Patient will demonstrate the desired outcomes by discharge/transition of care. Outcome: Ongoing Flowsheets (Taken 08/29/2023 1046) Effective Oxygenation/Ventilation: making progress toward outcome Problem: Breathing Pattern Ineffective (Adult) Goal: Anxiety/Fear Reduction Description: Patient will demonstrate the desired outcomes by discharge/transition of care. Outcome: Progressing Toward Goal Flowsheets (Taken 08/29/2023 1046) Anxiety/Fear Reduction: making progress toward outcome I [...] Medicine-Pediatrics, PGY-2 Mr. Styles was admitted to [address] [place] [address]. On admission to R[facility], from home a dual RN initial assessment of skin condition was performed by Erica Houston RN and Wilma Hay RN. Skin Assessment: Skin within defined limits:Yes [...] station when available. documented in this encounter [facility] 09-11-2023 History of Present illness Narrative Provided follow-up emotional and spiritual support. Patient shared about rosemary of discharge and looking forward to seeing family Mat Machine Operator provided: - Supportive presence - Active listening - Validation of feelings/emotions Patient encouraged to request a bill peddler as needed. Chaplains are available in-house 24 hours a day and 7 days a week. For urgent matters in [facility], please page [phone]. If the request is not urgent, please enter a consult. Consults are responded to within 24 hours. Senior Staff Mat Machine Operator Angie Singh Mdiv, [facility] Kirk [phone] [email or web address] 22/06 On-call [place]: [phone] 22/06 Pager APOORVA, and Brock Hernandez Pager [phone] 09/11/23 143 Clinical Encounter Type Visited With Patient Visit Type Follow-up Pastoral Time Spent 15 min Referral Other (See Comment) (rounding) Spiritual Assessment Spiritual Observation Spirituality helpful Emotional Observation Coping well Hope Observation Specific hope focus Support Observation By Family Interventions Provided Active listening;Supportive presence Facilitated Verbalization of feelings Explored Expectations Lock Stitch Channeler Education Lock Stitch Channeler Service Available Yes Educated Patient Plan of Care Continue Visiting PRN Images from the original note were not included. [facility] ([facility]) Note: Non-Verbal Med Rec [facility] received the following discharge prescription(s): Total cost is $0. I have reviewed the Discharge Rx Reconciliation Report. The discharge prescription(s) will be delivered to the patient on 09/11/2023. Dimitrios Gurrola RPh,PharmD Specialty ([place]) [phone] Jakob [phone] Jakob Bedside Delivery [phone] [facility] [phone] [facility] Bedside Delivery [phone] David [phone] David Bedside Delivery [phone] [place] [phone] [place] [phone] Internal Medicine Daily Progress Note Patient: George Styles, 1970, [id number] Physician: Evan Kelly MD, PGY-1, TM1 service Subjective/Interval History: Patient continues to require oxygen overnight for desaturations. With insurance limitations, only accepting agency to provide home oxygen backed out. After calling them to discuss, Lynn stated she would be willing to have patient drive to their facility to knot picker cloth supplies, however they close at 5pm. 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 His [place] kidney disease was noted to be presumed [...] losartan 50mg BID CAD: non-obstructive CAD on [facility] 2018. - continue home aspirin 81mg [...] 5.05 (H) 11/19/2018 Kevin Sage MD, SERA Tank Truck Loader of Clinical Medicine [facility] Images from the original note were not included. Final Discharge Planning and Transportation Final Discharge Planning Discharge Disposition: Home Services at Discharge: Outpatient clinical services (ie: lab draws, transfusions, injectables) (Home Oxygen by [facility]) Selected Continued Care - Admitted Since 08/28/2023 Durable Medical Equipment Coordination complete. Service Provider Selected Services Address Phone Fax Patient Preferred [employer] [facility] Durable Medical Equipment [address] [facility] [phone] Internal Comment last updated by Lora Alexander RN 09/10/2023 1334 Correct contact information: [employer] [address] [place] [address] [place] [address] engineering programmer- you do not need to call at discharge, I already notified the company. Addendum [phone] [facility] they are out of patient's insurance area and will not be able to service this patient at time of discharge. Provider notified. Addendum [phone] Dr Kelly called [facility] spoke to Lynn and she said they are willing to accept patient if the patient would drive to the [place] office and knot picker cloth the supplies. Patient is willing to do [...] Lora Colón RN, MSN, CCM, CMCN Clinical [facility]- [facility] Transplant #[phone] Department of Pharmacy Transplant Note Patient: George [...] needed, a dose adjustment Name: Matt Kramer RPh,PharmD Phone: [phone] Date/Time: 09/10/2023 11:33 AM This CM sent referral via [employer] for O2 concentrator to 4 agencies Start date today Timer set for 9069 [employer] [facility] [employer] Addendum 6522 One accepting company reserved in [place] [address] [place] [address] [place] [address] Lora Colón RN, MSN, CCM, CMCN Clinical Bumboater- R10 Transplant #[phone] NUTRITION FOLLOW-UP Nutrition Plan of Care: 1. Continue current diet order. 2. No oral supplements warranted at this time. 3. Monitor for significant weight changes. Monitor GI, skin integrity. 4. Monitor and encourage po intakes with goal of average po being 75-100%. 5. blending technician to follow. ___ Met with patient today at bedside wearing mask. Current Diet Orders Procedures DIET REGULAR Standing Status: Standing Number of Occurrences: 1 Appetite: good Per doc flow sheet: Date Breakfast Lunch Dinner 09/08 -% 75% -% 09/07 100% 75% 100% 09/06 100% 100% 100% 09/05 100% 100% -% 10 -% -% -% Po average over past [...] at this time. Will continue to monitor. Cecilia Mattson, DTR Pager:[phone] Transplant Infectious Disease (Team 3) Progress Note [...] sign off. Please Epic message or page [phone] with questions. Evan White DO Transplant Infectious Diseases Internal Medicine Daily Progress Note Patient: George Styles, 1970, [id number] Physician: Evan Kelly MD, PGY-1, TM1 service Subjective/Interval History: No acute events overnight. Patient continues to saturate appropriately on room air. He was also able to walk for 6min yesterday without supplemental oxygen. He reports feeling overall improved and all questions answered by the team. 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 His [place] kidney disease was noted to be presumed [...] losartan 50mg BID CAD: non-obstructive CAD on [facility] 2018. - continue home aspirin 81mg [...] to follow. Please Epic message or page [phone] with questions. 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 His [place] kidney disease was noted to be presumed [...] losartan 50mg BID CAD: non-obstructive CAD on [facility] 2018. - continue home aspirin 81mg daily, holding atorvastatin 20mg daily Gout: continue home allopurinol 200mg daily BPH: continue home flomax 0.4mg daily DVT PPX: SQH Code Status: Full Code Disposition: Pending clinical course. Anticipate eventual discharge home. Discussed with team and attending, Kevin Sage MD, on rounds. Signed, Laurel Serrano MD, PhD Internal Medicine Daily Progress Note Patient: George Styles, 1970, [id number] Physician: Evan Kelly MD, PGY-1, TM1 service [...] 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 His [place] kidney disease was noted to be presumed [...] losartan 50mg BID CAD: non-obstructive CAD on [facility] 2018. - continue home aspirin 81mg [...] 5.05 (H) 11/19/2018 Kevin Sage MD, SERA Tank Truck Loader of Clinical Medicine [facility] Transplant Infectious Disease [...] to follow. Please Epic message or page [phone] with questions. Ann Marie Haskins MD PGY-4, [...] he continues to improve. Please message via AllergEase secure chat or page with any questions or concerns. Evan White DO Tank Truck Loader Division of Infectious Disease Transplant Infectious Disease [...] to follow. Please Epic message or page [phone] with questions. Evan White DO Transplant Infectious Diseases Images from the original note were not included. Pulmonary/Critical Care Medicine Daily Progress Note Reason for Consultation: bronch for infectious workup Requesting Physician: Dr. Sage CURRENT HOSPITALIZATION: Admit Date: 08/28/2023 [facility] Hospital LOS: 9 days Impression [...] outpt pulmonary clinic We will sign off Corw Diaz MD Pulmonary and Critical Care Medicine [...] and interpreted reviewed the radiographic data in IHIS/[email or web address]. Internal Medicine Daily Progress Note Patient: George Styles, 1970, [id number] Physician: Evan Kelly MD, PGY-1, TM1 service Subjective/Interval History: No acute events overnight. Patient saturating appropriately on room air. He states he has been able to clear phlegm which may be contributing to his decreased oxygen requirements. His renal function imporved s/p bolus. He denies shortness of breath. All questions answered by the team. Objective: Vitals: 09/06/2345 BP: 139/69 Pulse: 72 Resp: 20 Temp: 98 F (36.7 C) SpO2: 91% O2 Device: room air (09/06/23744) Flow (L/min): 1 (09/06/23 033) Gen: Alert, Awake, NAD, tired-appearing Eyes: EOMI, [...] 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 His [place] kidney disease was noted to be presumed [...] losartan 50mg BID CAD: non-obstructive CAD on [facility] 2018. - continue home aspirin 81mg [...] 5.05 (H) 11/19/2018 Kevin Sage MD, SERA Tank Truck Loader of Clinical Medicine [facility] Images from the original note were not included. Pulmonary/Critical Care Medicine Daily Progress Note Reason for Consultation: bronch for infectious workup Requesting Physician: Dr. Sage CURRENT HOSPITALIZATION: Admit Date: 08/28/2023 [facility] Hospital LOS: 8 days Impression [...] and interpreted reviewed the radiographic data in IHIS/[email or web address]/[email or web address]. Acute Occupational Therapy Evaluation Prior to Admission [...] EOB, preparing his lines to go to RR. Expresses he has had UE tremors for [...] Assessment: Transfer Assessment: Sit to Stand Transfer Lamb Level: Sit->Stand: independent Skilled Intervention/Details: Sit->Stand: x1 from EOB, x1 from toilet Stand to Sit Transfer Lamb Level: Stand->Sit: independent Skilled Intervention/Details: Stand->Sit: x1 to toilet, x1 to EOB Functional Mobility: Functional Mobility Lamb Level: Functional Mobility/Gait: independent Ambulation Distance (Feet): 20 Skilled Intervention/Details - Functional Mobility/Gait: pt performed functional mobility to/from RR w/ no overt LOB Outcome Score(s): CURRENT [facility] Daily Activity Inpatient Short Form Putting on/Taking Off Lower Body Clothin - A Little Assistance Bathin - A Little Assistance Toiletin - A Little Assistance Putting on/Taking Off Upper Body Clothin - No Assistance Groomin - No Assistance Eatin - No Assistance CURRENT [facility] Activity Raw Score: 21 CURRENT [facility] Activity Functional Limitation/Modifier: 32.79% Currently [...] Acute Physical Therapy Evaluation Prior to Admission [facility] score(s): PRIOR LEVEL AM-PAC Mobility Raw [...] Intact Mobility Assessment: Supine to Sit Mobility Lamb Level: Supine->Sit: modified independence Bed Features/Set-up: Supine->Sit: Head of bed elevated Sit to Supine Mobility Lamb Level: Sit->Supine: not tested Balance: Sitting Balance [...] environment. Transfer Assessment: Sit to Stand Transfer Lamb Level: Sit->Stand: independent Skilled Intervention/Details: Sit->Stand: From EOB x 2 without difficulty. Stand to Sit Transfer Lamb Level: Stand->Sit: independent Assistive Device: Stand->Sit: armed chair Skilled Rationale: Verbal cues, Positioning Gait/Functional Mobility: Gait Assessment Lamb Level: Gait: stand-by assist Assistive Device: Gait: rollator Ambulation Distance (Feet): 400 Gait Deviations Identified: decreased grace, decreased gait speed Gait Skilled Rationale: verbal, upright posture, increase step length, increase foot clearance Skilled Intervention/Details - Gait: Reasonable foot clearnce without loss of balance but endorsing dyspnea as 6-7/10. Stairs: Stairs Assessment Lamb Level: Stair Negotiation: not tested Outcome Score(s): CURRENT [facility] Basic Mobility Inpatient Short Form [...] a railin - A Little Assistance CURRENT [facility] Mobility Raw Score: 21 CURRENT [facility] Mobility Functional Limitation/Modifier: 28.97% Currently [...] (Low) Clinical Decision Making: Low Time In: 924 Time Out: 1000 Total Visit Time: 35 [...] Daily Progress Note Patient: George Styles, 1970, [id number] Physician: Evan Kelly MD, PGY-1, TM1 service [...] 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 His [place] kidney disease was noted to be presumed [...] losartan 50mg BID CAD: non-obstructive CAD on [facility] 2018. - continue home aspirin 81mg [...] 5.05 (H) 11/19/2018 Kevin Sage MD, SERA Tank Truck Loader of Clinical Medicine [facility] Transplant Infectious Disease (Team [...] to follow. Please Epic message or page [phone] with questions. Evan White DO Transplant Infectious Diseases Images from the original note were not included. Internal Medicine Daily Progress Note Patient: George Styles, 1970, [id number] Physician: Evan Kelly MD, PGY-1, TM1 service [...] 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 His [place] kidney disease was noted to be presumed [...] losartan 50mg BID CAD: non-obstructive CAD on [facility] 2018. - continue home aspirin 81mg [...] with P 450 system Kevin Sage MD, MADISONN Tank Truck Loader of Clinical Medicine [facility] ERT Note: ERT [...] Internal Medicine and Pediatrics PGY-3 [facility] Brief plan of care update: Called to [...] Internal Medicine and Pediatrics PGY-3 [facility] Transplant Infectious Disease (Team 3) Progress Note [...] to follow. Please Epic message or page [phone] with questions. Evan White DO Transplant Infectious Diseases Internal Medicine Daily Progress Note Patient: George Styles, 1970, [id number] Physician: Evan Kelly MD, PGY-1, TM1 service [...] 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 His [place] kidney disease was noted to be presumed [...] 2/2 renal function CAD: non-obstructive CAD on [facility] 2018. - continue home aspirin 81mg [...] completed shifts: In: 2089 [P.O.:2089] Out: 1674 [Urine:167] No intake/output data recorded. LABS Lab Results [...] 5.05 (H) 11/19/2018 Kevin Sage MD, SERA Tank Truck Loader of Clinical Medicine [facility] Internal Medicine Daily Progress Note Patient: George Styles, 1970, [id number] Physician: Evan Kelly MD, PGY-1, TM1 service Subjective/Interval History: No acute events overnight. Patient with increasing oxygen requirements during bronchoscopy today. Returned to 4L NC post procedure. Patient denies any current shortness of breath. All questions answered by the team on rounds. Objective: Vitals: 09/02/23 1521 BP: Pulse: 77 Resp: 23 Temp: SpO2: [...] 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 His [place] kidney disease was noted to be presumed [...] 2/2 renal function CAD: non-obstructive CAD on [facility] 2018. - continue home aspirin 81mg [...] 5.05 (H) 11/19/2018 Kevin Sage MD, SERA Tank Truck Loader of Clinical Medicine [facility] Progression of Care Note [...] Lora Colón RN, MSN, CCM, CMCN Clinical Bumboater- R10 Transplant #[phone] Made introductory visit with patient. Provided emotional and spiritual support. Patient shared about: - Source of Rose[place]: Camping/Fishing/Family - Spirituality/Sikh Affiliation: raised Rest[place] - Family Support/history - Experience with illness/hospital course - Hopes for healing/future Mat Machine Operator provided: - Supportive presence - Active listening - Validation of feelings/emotions - Pledged prayer Patient encouraged to request a bill peddler as needed. Chaplains are available in-house 24 hours a day and 7 days a week. For urgent matters in [facility], please page [phone]. If the request is not urgent, please enter a consult. Consults are responded to within 24 hours. Senior Staff Mat Machine Operator Angie Singh Mdiv, [facility] [place] [phone] [email or web address] 22/06 On-call Kirk: [phone] 22/06 Pager ,BS, and Brock Hernandez Pager [phone] 09/02/23 1119 Clinical Encounter Type Visited With Patient Visit Type Introduction Pastoral Time Spent 15 min Referral Other (See Comment) (rounding) Spiritual Assessment Spiritual Observation Spirituality helpful Emotional Observation Coping well Hope Observation Specific hope focus Support Observation By Family Interventions Provided Active listening;Supportive presence Facilitated Verbalization of feelings Explored Expectations Lock Stitch Channeler Education Lock Stitch Channeler Service Available Yes Educated Patient Outcomes Patient Outcomes Reduced distress Plan of Care Continue Visiting PRN NUTRITION RISK SCREENING NOTE Nutrition Plan of Care: 1. Continue current diet order. 2. No oral supplements warranted at this time. 3. Monitor for significant weight changes. Monitor GI and skin integrity. 4. Monitor and encourage po intakes with goal of average po being 100%. 5. blending technician to follow. George Styles is a 53 y.o. 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 His [place] kidney disease was noted to be presumed hepatorenal syndrome. His post-transplant course was noteworthy for nephrostomy tube (05/17/2022-09/10/2022) due to concern for ureteral stone. He presents as a direct admission for fever, cough, for infectious workup. Pt unavailable and information obtained via chart review Insurance Account Assistant Screening Pt's appetite is good. Pt with [...] time. Will continue to monitor. RHIANNON BirminghamR Pager:[phone] Internal Medicine Daily Progress Note Patient: George Styles, 1970, [id number] Physician: Evan Kelly MD, PGY-1, TM1 service [...] C) SpO2: 92% O2 Device: room air (09/01/23908) Flow (L/min): 4 (09/01/23908) Gen: Alert, Awake, [...] 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 His [place] kidney disease was noted to be presumed [...] 2/2 renal function CAD: non-obstructive CAD on [facility] 2018. - continue home aspirin 81mg [...] as outlined above. Kevin Sage MD Pager [phone] Summary: Pharmacy Med Rec Department of Pharmacy [...] further questions. Name: Heidy Chatman Phone #: [phone] Date/Time: 09/01/2023 2:01 PM Time Spent: 15 minutes Associated attestation - Matt Kramer RPh,PharmD - 09/01/2023 2:28 PM EDT Department of Pharmacy Admission Medication Reconciliation Note Patient: George Styles Room/Bed: 1062/A I have reviewed the home medication list with the Swat Team Member. All changes to the home medication list have been updated in IHIS. Updated TRAINING AND DEVELOPMENT PROJECT LEADER Med List: Prior to Admission Medications Prescriptions [...] questions. Name: Matt Kramer RPh,PharmD Phone #: [phone] Date/Time: 09/01/2023 2:28 PM Transplant Infectious Disease [...] crypto antigen, EBV PCR -follow pending histo, [id number] labs These recommendations were discussed with the primary team. Transplant ID (Team 3) will continue to follow. Please Epic message or page [phone] with questions. Evan White DO Transplant Infectious Diseases Internal Medicine Daily Progress Note Patient: George Styles, 1970, [id number] Physician: Evan Kelly MD, PGY-1, TM1 service [...] Na/K+/Phos/Mg/Ca: 134/4.4/--/1.7/-- (08/31 451) Bun/Creat/Cl/CO2/Glucose: 16/1.37/102/23/112 (08/31 045) Lab Results Component Value Date SPGRVTYUR 1.015 [...] 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 His [place] kidney disease was noted to be presumed [...] 2/2 renal function CAD: non-obstructive CAD on [facility] 2018. - continue home aspirin 81mg [...] 5.05 (H) 11/19/2018 Kevin Sage MD, MADISONN Tank Truck Loader of Clinical Medicine [facility] Discharge Planning Patient [...] Yes Name and Contact information: Gian Styles ([phone]) Reviewed and Updated in Demographics? : Yes Outpatient Providers Does patient have a primary care physician? : Yes When was the patient's last PCP visit?: > 30 days Does the patient follow any specialists?: No Reviewed and updated Care Team?: Yes Patient Care Team: Zuly Bruno CNP as PCP - General Environment/Caregivers Is the patient from a facility or senior living?: No Patient lives with: Alone Living Environment: [...] patient on Anticoagulation? : No [id number] [place] [address] - [address] [facility] [address] Corrosion Technician Does the patient or sales representative express financial concerns? : No Employed?: Disabled Coping/Stress Concerns about patient s coping and stress?: No Concerns about patient s caregiver s coping and stress?: No Values and Beliefs Cultural or rastafarian practices that may impact discharge planning and/or [...] Plan 1. Identified self and role as Bumboater. 2. Confirmed and updated demographics and treatment team. 3. Bumboater will continue to follow with medical team/pt for any other additional discharge needs. Kasandra DON RN [facility] [phone] *Please note I am float and work Thursday and Thursday every other week. Please call [phone] for assist in my absence. Internal Medicine Daily Progress Note Patient: George Styles, 1970, [id number] Physician: Evan Kelly MD, PGY-1, TM1 service Subjective/Interval History: Patient febrile to 100.4 overnight. This morning, patient continues to endorse intermittent cough. He required 3L O2, denies history of DARLENE. Recommended patient proceed with sleep study if persistently requires oxygen overnight. All questions answered by the team on rounds. Objective: Vitals: 08/30/23 0728 BP: 117/65 Pulse: 69 Resp: 16 Temp: [...] Bun/Creat/Cl/CO2/Glucose: 16/1.56/102/20/123 (08/30 236) Ptt/Pt/Inr: 29.3/13.8/1.1 (08/29 123) Lab Results Component Value Date SPGRVTYUR 1.015 [...] 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 His [place] kidney disease was noted to be presumed [...] 2/2 renal function CAD: non-obstructive CAD on [facility] 2018. - continue home aspirin 81mg [...] 5.05 (H) 11/19/2018 Kevin Sage MD, SERA Tank Truck Loader of Clinical Medicine [facility] Internal Medicine Daily Progress Note Patient: George Styles, 1970, [id number] Physician: Laurel Serrano MD, PhD, PGY-3, TM1 [...] Na/K+/Phos/Mg/Ca: 133/4.5/--/1.7/-- (08/29 544) Bun/Creat/Cl/CO2/Glucose: 19/1.55/105/20/108 (08/29 544) Lab Results Component Value Date SPGRVTYUR 1.015 [...] 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 His [place] kidney disease was noted to be presumed [...] losartan 50mg BID CAD: non-obstructive CAD on [facility] 2018. - continue home aspirin 81mg daily, atorvastatin 20mg daily Gout: continue home allopurinol 200mg daily BPH: continue home flomax 0.4mg daily DVT PPX: SQH Code Status: Full Code Disposition: Pending clinical course. Anticipate eventual discharge home. Discussed with team and attending, Kevin Sage MD, on rounds. Signed, Laurel Serrano MD, PhD documented in this encounter [facility] 09-10-2023 Hospital Discharge instructions Laurel [...] a sleep doctor. You will need to knot picker cloth the oxygen concentrator when you leave the [...] You should get your fist check on September 14! Laurel Serrano MD, PhD - 09/10/2023 12:23 PM EDT Resume previous activity as tolerated. You will be wake after the hospitalization, but is important to continue to try to move every day. Laurel Srerano MD, PhD - 09/10/2023 12:23 PM EDT Resume your previous diet. Try to eat a good variety of foods and focus on healthy foods. documented in this encounter [facility] 09-01-2023 Consult note Associated Order (s): IP CONSULT TO PULMONOLOGY Pulmonary Medicine Inpatient Consultation Reason for Consultation: bronch for infectious workup Requesting Physician: Dr. Sage Pulmonary Attending Physician: Dr. Diaz CURRENT HOSPITALIZATION: Admit Date: 08/28/2023 [facility] Hospital LOS: 4 days Impression/Recommendations: [...] Recommendations: - Plan to bronch tomorrow morning. NPO@MS, order placed - would repeat HIV, last test March Thank you for the consult. We will continue to follow. Izzy Loera MD Pulmonary and Critical Care Fellow [phone] History of Presenting Illness: Mr Styles confirms history as documented in the chart. 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 Other histories as documented in [...] had any ill contacts. He traveled to [place] to [facility] in May. REVIEW OF SYSTEMS A complete [...] GUIDANCE 05/17/2022 Surgeon: Enzo Heart DO; Location: [facility] INTERVENTIONAL RADIOLOGY (VIR) LIVER TRANSPLANT, ORTHOTOPIC N/A 04/12/2020 Laterality: N/A; Surgeon: LU Palma; Location: [facility] SAME DAY SURGERY MAIN OR KIDNEY TRANSPLANT W/O [place] NEPHRECTOMY N/A 04/12/2020 Laterality: N/A; Surgeon: LU Palma; Location: [facility] SAME DAY SURGERY MAIN OR OTHER [...] Alamo MD I can be reached via AllergEase secure message (preferred) or Pager #[phone] documented in this encounter [facility] 08-28-2023 History and physical note Images from the original note were not included. Internal Medicine Admission History & Physical Patient: George Styles, 1970, [id number] Physician: Aric Turner MD, PGY1, Pager #[phone], ES service Date of face to face patient [...] So he went to see the transplant supervisor scenic arts. He was found elevated Cr and asked [...] Appetite is ok now. Urine is about 3447-9261 ml every day. Stool every day, no [...] GUIDANCE 05/17/2022 Surgeon: Enzo Heart DO; Location: [facility] INTERVENTIONAL RADIOLOGY (VIR) LIVER TRANSPLANT, ORTHOTOPIC N/A 04/12/2020 Laterality: N/A; Surgeon: LU Palma; Location: [facility] SAME DAY SURGERY MAIN OR KIDNEY TRANSPLANT W/O [place] NEPHRECTOMY N/A 04/12/2020 Laterality: N/A; Surgeon: LU Palma; Location: [facility] SAME DAY SURGERY MAIN OR OTHER [...] 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 His [place] kidney disease was noted to be presumed [...] Urinary histoplasmosis - PJP, candid PCR - Upholstery Cleaner transplant ID Acute Kidney Injury with Kidney [...] losartan 50mg BID CAD: non-obstructive CAD on [facility] 2018. - continue aspirin 81mg daily, [...] replaced by transplant with FUO. Transplant Physician: Morgan Harris, Erma Roe, Melania Pierson, Luisa Steven, Renee Rivera, Daisha Max Satellite Instruction Facilitator: José Miguel Garnica All Txt: 04/13/2020 (Kidney), [...] results found for: CYCLOSPORIN , CYCLOSPORIN2 , [id number] , CYCLORAND No results found for: SIROLIMUS [...] Rest as above. Kevin Sage MD Pager [phone] documented in this encounter [facility] 08-28-2023 History of Present illness Narrative Images from the original note were not included. 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 Satellite Instruction Facilitator: Anayeli Burt Date of Liver Transplant: 04/13/2020 (Kidney), 04/13/2020 (Liver) 3 years 4 months post Liver/Kidney Transplant Primary Disease: Hypertensive Nephrosclerosis Transplant Flexo Operator: Erma Roe/ Daisha Max Primary Care [...] === None Specified Preferred Lab: [facility] Change in lab frequency / new order [...] hours. ADDITIONAL INFORMATION: None Specified, [id number] [place] [address] - [address] [facility] [address] [facility] Outpatient Pharmacy [address] [facility], [address] [facility] [address] [id number] [place] [address] [address] [facility] OF [facility] 201 [facility] [address] [facility]ob [address], [place] [address] [facility] [address] ROS and SCREEN: Chest Pain: negative Cough: [...] PHYSICIAN: I saw George Styles at the [facility] on 08/28/2023. Patient is a 53 y.o. 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 His kasigl[place] kidney disease was noted to be presumed [...] GUIDANCE 05/17/2022 Surgeon: Enzo Heart DO; Location: [facility] INTERVENTIONAL RADIOLOGY (VIR) LIVER TRANSPLANT, ORTHOTOPIC N/A 04/12/2020 Laterality: N/A; Surgeon: LU Palma; Location: [facility] SAME DAY SURGERY MAIN OR KIDNEY TRANSPLANT W/O [place] NEPHRECTOMY N/A 04/12/2020 Laterality: N/A; Surgeon: LU Palma; Location: [facility] SAME DAY SURGERY MAIN OR OTHER [...] you have any questions. Steve Latham MD arabic teacher Division of Nephrology [facility] documented in this encounter [facility] 08-28-2023 Instructions Mainor Busby RN - 08/28/2023 2:15 PM EDT - Admission for fevers, cough, and night sweats documented in this encounter [facility] 08-19-2023 History of Present illness Narrative [facility] OUTREACH ADVANCED: Call Information: Date and Time of Contact: 08/19/2023 2:52 PM Method of Contact: By Phone Contact Type: Prescriptions Contactor: [facility] Contactee: Patient Shipping/Pickup: Medicare B Refill?: No Medication Name: Tacro 0.5mg Delivery Method: Air Delivery Location: Home Signature Required: No Mailing/Pickup Date: 08/25/2023 Shipping Address: [address] [place] [address] 179 Contact Info: Specialty ([place]) [phone] [facility] [phone] [facility] [phone] [facility] [phone] Bedside Delivery ([facility]) [phone] documented in this encounter [facility] 06-12-2023 History of Present illness Narrative Images from the original note were not included. George Styles is a 53 y.o. 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 History of Present Illness: Since George was [...] and lab results. Rebeca Olsen MSN, RN, HEAT ENGINEERING TEACHER-BC, CCTN Certified Nurse Practitioner [facility] [address] [facility] [address] documented in this encounter [facility] 06-12-2023 Instructions JEANNA Hess - 06/12/2023 3:00 PM EDT No change in immunosuppression. documented in this encounter [facility] 06-10-2023 History of Present illness Narrative [facility] OUTREACH ADVANCED: Call Information: Method of Contact: By Phone Contact Type: Prescriptions Contactor: [facility] Contactee: Patient Contact Outcome: Left message Shipping/Pickup: Medication Name: Mycophenolate sod 180 mg Contact Info: Specialty ([place]) [phone] [facility] [phone] [facility] [phone] [place] [phone] Bedside Delivery ([facility]) [phone] [facility] OUTREACH ADVANCED: Call Information: Date and Time of Contact: 06/12/2023 9:43 AM Method of Contact: By Phone Contact Type: Prescriptions Contactor: [facility] Contactee: Patient Contact Outcome: Left message and Follow-up Shipping/Pickup: Medicare B Refill?: No Medication Name: Myco 180 Contact Info: Specialty ([place]) [phone] Jakob [phone] [facility] [phone] [place] [phone] Bedside Delivery ([facility]) [phone] [facility] OUTREACH ADVANCED: Call Information: Date and Time of Contact: 06/12/2023 10:08 AM Method of Contact: By Phone Contact Type: Prescriptions Contactor: [facility] Contactee: Patient Shipping/Pickup: Medicare B Refill?: No Medication Name: Mycophenolate 180mg DR Delivery Method: Air Delivery Location: Home Signature Required: No Mailing/Pickup Date: 06/17/2023 Shipping Address: [address] [place] [address] Contact Info: Specialty ([place]) [phone] [facility] [phone] [facility] [phone] [place] [phone] Bedside Delivery ([facility]) [phone] documented in this encounter [facility] 04-13-2023 Note [place] [facility] - [facility] Subjective George Styles is a 53 y.o. [...] Legacy Encounter on (more content not included)... [facility] 03-12-2023 History of Present illness Narrative [facility] OUTREACH ADVANCED: Call Information: Date and Time of Contact: 03/12/2023 10:34 AM Method of Contact: By Phone Contact Type: Prescriptions Contactor: [facility] Contactee: Patient Shipping/Pickup: Medicare B Refill?: No Medication Name: Mycophenoloate sod 360 mg prednisone 5mg Delivery Method: Air Delivery Location: Home Signature Required: No Mailing/Pickup Date: 03/16/2023 Shipping Address: [address] [place] [address] Contact Info: Specialty ([place]) [phone] Jak[place] [phone] [facility] [phone] [place] [phone] Bedside Delivery ([facility]) [phone] [facility] OUTREACH ADVANCED: Call Information: [...] Required: No Mailing/Pickup Date: 03/19/2023 Shipping Address: [address] [facility] 179 Contact Info: Specialty ([place]) [phone] [facility] [phone] [facility] [phone] [facility] [phone] Bedside Delivery ([facility]) [phone] documented in this encounter [facility] 03-10-2023 History of Present illness Narrative [facility] OUTREACH ADVANCED: Call Information: Date and Time of Contact: 03/10/2023 12:00 PM Method of Contact: By Phone Contact Type: Prescriptions Contactor: [facility] Contactee: Patient Contact Outcome: Left message and Call back later Shipping/Pickup: Medication Name: Mycophenolate ; Tacrolimus Contact Info: Specialty ([place]) [phone] [facility] [phone] [facility] [phone] [facility] [phone] Bedside Delivery ([facility]) [phone] documented in this encounter [facility] 03-10-2023 History of Present illness Narrative [facility] OUTREACH ADVANCED: Call Information: Date and Time of Contact: 03/10/2023 12:00 PM Method of Contact: By Phone Contact Type: Prescriptions Contactor: [facility] Contactee: Patient Contact Outcome: Left message and Call back later Shipping/Pickup: Medication Name: Mycophenolate ; Tacrolimus Contact Info: Specialty ([place]) [phone] [facility] [phone] [facility] [phone] [facility] [phone] Bedside Delivery ([facility]) [phone] [facility] OUTREACH ADVANCED: Call Information: Date and Time of Contact: 03/12/2023 10:32 AM Method of Contact: By Phone Contact Type: Prescriptions Contactor: [facility] Contactee: Patient Contact Outcome: Left message Shipping/Pickup: Medication Name: Mycophenolate sodium (MYFORTIC) 180 MG Tab tacrolimus 0.5 mg Contact Info: Specialty ([place]) [phone] Jakob [phone] [facility] [phone] David [phone] Bedside Delivery ([facility]) [phone] documented in this encounter [facility] 01-16-2023 History of Present illness Narrative -Referring Provider for today's consult: Daisha Max DO -Primary Care Provider: Zuly Bruno History of Present Illness George Styles is a 52 y.o. male who presents [facility] the [facility] Transplant Hepatology Clinic today for follow-up [...] GUIDANCE 05/17/2022 Surgeon: Enzo Heart DO; Location: [facility] INTERVENTIONAL RADIOLOGY (VIR) LIVER TRANSPLANT, ORTHOTOPIC N/A 04/12/2020 Laterality: N/A; Surgeon: LU Palma; Location: [facility] SAME DAY SURGERY MAIN OR KIDNEY TRANSPLANT W/O [place] NEPHRECTOMY N/A 04/12/2020 Laterality: N/A; Surgeon: LU Palma; Location: [facility] SAME DAY SURGERY MAIN OR OTHER [...] 0.3 12/29/2022 Explant Pathology Pathologic Diagnosis A. Cachil Dehe liver, orthotopic liver transplant resection (1458 gram): [...] A/P with IV contrast (06/27/2022): 1. Both [place] kidneys are atrophic with improvement in right-sided [...] frequent nighttime urination, etc). Daisha Max DO Tank Truck Loader Gastroenterology, Hepatology and Nutrition [facility] Pager: [phone] Images from the original note were not included. 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 Satellite Instruction Facilitator: Anayeli Burt Date of Liver Transplant: 04/13/2020 (Kidney), 04/13/2020 (Liver) 2 years, 8 months post Liver/Kidney Transplant Primary Disease: Hypertensive Nephrosclerosis Transplant Flexo Operator: Steve Latham Primary Care physician: Zuly [...] levels: No results found for: CYCLOSPORIN, CYCLOSPORIN2, [id number], CYCLORAND No components found for: CYCLOSPORINE, 2HR [...] hours. ADDITIONAL INFORMATION: None Specified [id number] [place] [address] - [address] [facility] 710 [facility] [address] [facility] [place] [facility] [address] [facility] [address] [facility] [address] [facility][id number] [place] [address] [address] [facility] [address] [facility] [address] [facility] [address], [facility] 111 [facility] [address] ROS and SCREEN: Chest Pain: negative Cough: [...] ADDRESS WITH PHYSICIAN: documented in this encounter [facility] 01-16-2023 Instructions José Miguel Garnica RN - 01/16/2023 9:40 AM EST - Labs Every 2 months - Discuss night time urination with your PCP - Schedule Colonoscopy through PCP - Follow up in 1 year documented in this encounter [facility] 09-10-2022 History of Present illness Narrative UROLOGY CLINIC NOTE Reason for Appointment: BPH with LUTS HPI: Patient is a 52 yo male with a DDRT to the [facility] in 2019. Nephrostomy tube placed 05/17/22 due [...] and no hydronephrosis. Some reflux up the [place] right ureter but good drainage of both transplant and [place] ureter to the bladder. Nephrostomy tube was [...] transplant, orthotopic (N/A, 04/12/2020); kidney transplant w/o [place] nephrectomy (N/A, 04/12/2020); and placement nephrostomy catheter [...] Negative for , diarrhea, constipation Genitourinary: See [place] Neurological: Negative for headaches. Lymph/Heme: Negative for [...] x 4, Normal strength. No edema. Skin: [place], warm, and dry. There are no rashes [...] and no hydronephrosis. Some reflux up the [place] right ureter but good drainage of both transplant and [place] ureter to the bladder. Nephrostomy tube was [...] Yepez MD 09/10/22 documented in this encounter [facility] 07-07-2022 History of [...] assisted off the table and escorted to concierge receptionist where they made a follow up. Associated Order(s): NEPHROSTOMY TUBE REMOVAL Post-Procedure Diagnose(s): Other hydronephrosis NEPHROSTOMY TUBE REMOVAL Date/Time: 07/07/2022 2:10 PM Performed by: Ryan Yepez MD Authorized by: yRan Yepez MD Nephrostomy tube removal: Right Pre-procedure [...] yo male with a DDRT to the [facility] in 2019. Nephrostomy tube placed 05/17/22 due [...] to have transplant ureter with anastomosis to [place] right ureter. Nephrostogram without filling defects and no hydronephrosis. Some reflux up the [place] right ureter but good drainage of both transplant and [place] ureter to the bladder. Nephrostomy tube was removed without issue. Patient does have some sensation of incomplete bladder emptying and occasional sensation in his right flank. PVR today was 33cc. Will re-evaluate urinary symptoms at next appointment. --continue Flomax --RTC in one month flow flow/PVR/IPSS Patient to call with any additional questions or concerns. Ryan Yepez MD 07/07/22 documented in this encounter [facility] 06-27-2022 History of Present [...] transplant, orthotopic (N/A, 04/12/2020); kidney transplant w/o [place] nephrectomy (N/A, 04/12/2020); and placement nephrostomy catheter [...] Negative for , diarrhea, constipation Genitourinary: See [place] Neurological: Negative for headaches. Lymph/Heme: Negative for [...] x 4, Normal strength. No edema. Skin: [place], warm, and dry. There are no rashes [...] yo male with a DDRT to the [facility] in 2019. Nephrostomy tube placed [...] bag if needed. documented in this encounter [facility] 06-27-2022 History and physical note Patient was evaluated in clinic as a nurse visit. Please refer to Rena Brewster's note. [facility] Work Phone: 06-27-2022 History and physical note Patient was evaluated in clinic as a nurse visit. Please refer to Rena Brewster's note. documented in this encounter [facility] 06-27-2022 History of Present illness Narrative TEACHING REGARDING TX NEPH COMPLETED-NEPH TUBE SITE DRY AND INTACT-CLEAR YELLOW URINE IN THE BAG-INSTRUCTED ABOUT FLUSHING, BAG CHANGING ETC. NUMEROUS QUESTIONS ASKED AND ANSWERED-VERBALIZED UNDERSTANDING documented in this encounter [facility] 06-18-2022 Note EXAMINATION: CT ABD/ PELVIS [...] mass or enlargement. KIDNEYS: Marked atrophy of [place] kidneys. Transplant right pelvic kidney with percutaneous [...] compared to prior study. Electronically authenticated by: MNÓICA JIMENEZ Date: 2022-06-18 13:53 [facility] 06-12-2022 Instructions Anayeli Christianson RN - 06/12/2022 3:21 PM EDT Do not take apart/disrupt nephrostomy tube system. Call Interventional Radiology and/or on-call transplant nurse [phone] for instruction if need to flush (clot or decreased flow). Take cipro 500mg, one tablet, twice per day for 14 days documented in this encounter [facility] 06-12-2022 History of Present illness Narrative Images from the original note were not included. 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 Satellite Instruction Facilitator: Anayeli Burt Date of Liver Transplant: 04/13/2020 (Kidney), 04/13/2020 (Liver) 2 year, 1 months post Liver/Kidney Transplant Primary Disease: Hypertensive Nephrosclerosis Transplant Flexo Operator: Steve Latham Primary Care physician: Zuly [...] or medical transport for appointment: no Did assistant front end manager confirm current address and insurance information is [...] PREFERRED LAB AND PHARMACY: None Specified [facility] [place] [id number] - [address] [address] [facility] [place] [facility] [address], [address] [facility] [address] [id number] [place] [address] [address] [facility] [address] [facility] [address] [facility] [address], [place] 111 [facility] [address] ROS and SCREEN: Chest Pain: negative Cough: negative SOB: negative Abd Pain: negative Nausea: positive Vomiting: negative Diarrhea: negative Constipation: negative Dysuria: positive Edema: negative Tremors: negative Headaches: negative Wound issues: negative Pt has neph tube w clear yellow urine. States he had a small clot that he dislodged QUESTIONS OR CONCERNS TO ADDRESS WITH PHYSICIAN: I saw George Styles at the [facility] on 06/12/2022. Patient is a 52 y.o. 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 His [place] kidney disease was noted to be presumed [...] GUIDANCE 05/17/2022 Surgeon: Enzo Heart DO; Location: [facility] INTERVENTIONAL RADIOLOGY (VIR) LIVER TRANSPLANT, ORTHOTOPIC N/A 04/12/2020 Laterality: N/A; Surgeon: LU Palma; Location: [facility] SAME DAY SURGERY MAIN OR KIDNEY TRANSPLANT W/O [place] [facility] [place] NEPHRECTOMY N/A 04/12/2020 Laterality: N/A; Surgeon: LU Palma; Location: [facility] SAME DAY SURGERY MAIN OR OTHER [...] you have any questions. Steve Latham MD arabic teacher Division of Nephrology [facility] documented in this encounter [facility] 06-04-2022 Instructions TATI GROVE - 06/04/2022 11:04 AM EDT Thank you for joining us for your neph tube follow up. We recommend routine exchange every 8-10 weeks. Please reach out at [phone] when it is time to set your next routine exchange. Thank you IR clinic documented in this encounter [facility] 06-04-2022 History of Present illness Narrative [...] exchange. Verbalized understanding. documented in this encounter [facility] 05-20-2022 Note Formatting of this n [...] time of his discharge. Leon Cook RN [facility] 05-20-2022 Miscellaneous Notes Patient discharged. AVS [...] provide teaching before his discharge Leon RN #[id number] Leon Cook RN Afternoon assessment completed at [...] Conf Outcome: Ongoing Discussed with [facility] re: possible urine culture performed at their [...] Stone left in strainer in pt bathroom. 499: IHIS message sent to Dr Justyn Wen, [...] with questions. Evan Byrd MD Urology, PGY-2 #[id number] I certify that this patient requires inpatient [...] Kallie Lorenzana RN documented in this encounter [facility] 05-20-2022 Note Formatting of this n [...] discharge/transition of care. Outcome: Adequate for Discharge [facility] 05-20-2022 Note Formatting of this n ote might be different from the original. Anne Dillard MD R10 Rm 1006 Jensen George Please let's have a clear order on how the nephrostomy site dressing need to be changed when the patient goes home so we provide teaching before his discharge Leon RN #[id number] Leon Cook RN [facility] 05-20-2022 History of Present illness Narrative Images from the original note were not included. [facility] ([facility]) Note: [facility] received the following discharge prescription(s): Medication reconciliation was completed with comparison to discharge reconciliation report. The prescription(s) will be delivered to the patient's bedside on 05/20/22. Total cost is $0. Yanira Her RPh,PharmD Specialty ([place]) [phone] [facility] [phone] [facility] [phone] [place] [phone] [place] [phone] [facility] [phone] Attending I saw George Styles at the [facility] on 05/19/2022. I saw and [...] Evan Bennett MD 650 mg at 05/18/22 1739 allopurinol (ZYLOPRIM) tablet 100 mg 100 mg [...] Daily Progress Note Patient: George Styles, 1970, [id number] Physician: Liam Julian MD, PGY-3, Pager #[phone], [email or web address] Subjective/Interval History: No acute events overnight. Passed stone this morning, will send to lab for analysis. Overall reporting improvement in abdominal pain. Objective: Vitals: 05/19/22 0400 BP: 174/77 Pulse: 62 Resp: 16 Temp: 97.8 F (36.6 C) O2 Device: room air (05/19/22 0400) Flow (L/min): 3 (05/17/22 171) Gen: NAD, [...] agree with neph tube placement - Discontinued ymers History of liver and kidney transplant: Patient [...] if transplant nephrology still thinks appropriate. Daya (Aggie Saldana MD Division of Hospital Medicine Pager [phone] Attending I saw George Feliz Jensen at the [facility] on 05/18/2022. I saw and [...] Intravenous Q24H Nishant Gamez MD Stopped at 05/17/22 181 faMOTIdine (PEPCID) tablet 20 mg 20 mg Oral Daily Evan Bennett MD 20 mg at 05/17/22 0947 gabapentin (NEURONTIN) capsule 400 mg 400 mg Oral QHS Evan Bennett MD 400 mg at 05/17/222038 guaiFENesin (ROBITUSSIN) oral solution 400 mg 400 mg Oral Q6H PRN Evan Bennett MD heparin injection 5,000 Units 5,000 Units Subcutaneous Q8H Nishant Gamez MD 5,000 Units at 05/16/222051 iodixanol (VISIPAQUE) injection 320 mg/mL for IR [...] PRN Nishant Gamez MD 5 mg at 05/17/22 182 polyethylene glycol (MIRALAX) packet 17 g 17 g Oral Q12H Nishant Gamez MD 17 g at 05/17/222037 senna (SENOKOT) tablet 8.6 mg 8.6 mg Oral Daily Nishant Gamez MD 8.6 mg at 05/17/22946 sodium chloride 0.9% IV solution 250 mL [...] oxalate to prevent future stones Can remove myers Maxi Pringle MD Internal Medicine Daily Progress Note Patient: George Styles, 1970, [id number] Physician: Nishant Gamez MD, PGY2, Pager #[phone], [email or web address] Subjective/Interval History: Nephrostomy tube placed yesterday with a lot of urine output and significant improvement in creatinine. Objective: Vitals: 05/18/22409 BP: 190/86 Pulse: 83 Resp: 18 Temp: 98.4 F (36.9 C) O2 Device: room air (05/18/22409) Flow (L/min): 3 (05/17/221718) Gen: NAD, well-appearing HENT: NCAT, EOMI, MMM [...] to have stablized for this to be sales representative. Daya (Nunu) Jeff Saldana MD Division of Hospital Medicine Pager [phone] Internal Medicine Daily Progress Note Patient: George Styles, 1970, [id number] Physician: Nishant Gamez MD, PGY2, Pager #[phone], [email or web address] Subjective/Interval History: Worsening creatinine this morning with [...] stone, agree with neph tube placement - Myesr placed before transfer History of liver and [...] is still working to his knowledge. Daya (Aggie Saldana MD Division of Hospital Medicine Pager [phone] Attending I saw George Styles at the [facility] on 05/17/2022. I saw and [...] QHS Evan Bennett MD 20 mg at 05/16/228 benzocaine-menthol (CEPACOL) 15-3.6 MG per lozenge 1 [...] QHS Evan Bennett MD 400 mg at 05/16/222047 guaiFENesin (ROBITUSSIN) oral solution 400 mg 400 [...] Nishant Gamez MD 5 mg at 05/16/22 1543 polyethylene glycol (MIRALAX) packet 17 g 17 [...] of chart and discussion with treatment team, Bumboater has not identified needs at this time. [...] follow. Introduced self and role of the bill peddler to patient. Provided emotional and spiritual support and the patient responded by sharing their experience and discussed the following: - Spirituality/Sikh Affiliation: As a kid attended [employer] but not a strong identity now - Family support - pt's brothers live close by Mat Machine Operator provided: - Supportive presence - Active listening - Validation of feelings/emotions Patient encouraged to request a bill peddler as needed. Chaplains are available in-house 24 hours a day and 7 days a week. For urgent matters in [facility], please page [phone]. If the request is not urgent, please enter a consult. Consults are responded to within 24 hours. Angie Singh Mdiv, [facility] Burn Unit and Transplant [place] [address] Mat Machine Operator [facility] Mat Machine Operator Kirk [phone] [email or web address] 22/06 [facility] Pager [phone] 22/06 Pager ,[facility], and [place] 1500 22/06 [place] Pager [phone] 05/16/22 9422 Clinical Encounter Type Visited With Patient Visit Type Introduction Pastoral Time Spent 15 min Referral Other (See Comment) (Rounding) Spiritual Assessment Spiritual Observation Spirituality helpful;Identifies as (see comment) (Baptism) Emotional Observation Coping well Hope Observation Hopeful and accepting Support Observation By Family Interventions Provided Active listening;Supportive presence Facilitated Verbalization of feelings;Sharing of life story;Identifying support system Explored Expectations Lock Stitch Channeler Education Lock Stitch Channeler Service Available Yes Educated Patient Outcomes Patient Outcomes Articulated purpose/meaning Plan of Care Continue Visiting PRN Internal Medicine Daily Progress Note Patient: George Styles, 1970, [id number] Physician: Nishant Gamez MD, PGY2, Pager #[phone], [id number] Subjective/Interval History: Overall feeling okay this morning. 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 [...] Supervision Transfer Assessment: Sit to Stand Transfer Lamb Level: Sit->Stand: independent Skilled Intervention/Details: Sit->Stand: x1 from EOB Stand to Sit Transfer Lamb Level: Stand->Sit: supervision Assistive Device: Stand->Sit: armed chair Skilled Rationale: Controlled descent for sitting, Verbal cues Gait/Functional Mobility: Gait Assessment Lamb Level: Gait: supervision Assistive Device: Gait: gait belt Gait Distance (feet): 200 Gait Deviations Identified: decreased grace, decreased step length, decreased stride length Gait Skilled Rationale: verbal, upright posture Skilled Intervention/Details - Gait: Pt with steady gait without LOB or complaints of SOB. Stairs: Stairs Assessment Lamb Level: Stair Negotiation: stand-by assist Assistive Device: Stair Negotiation: gait belt, left rail (ascending) Number of stairs: 9 Stairs Skilled Rationale: reciprocal pattern Outcome Score(s): CURRENT [facility] Basic Mobility Inpatient Short Form Turning over in bed: 4 - No Assistance Sitting/standing from chair: 4 - No Assistance Moving from lying on back to sittin - No Assistance Moving to and from bed to chair: 4 - No Assistance Walk in hospital room: 3 - A Little Assistance Climbing 3-5 steps with a railin - A Little Assistance CURRENT [facility] Mobility Raw Score: 22 CURRENT [facility] Mobility Functional Limitation/Modifier: 20.91% Currently [...] reported no concerns with discharging home with sandgap support. 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 IADL History IADLs: independent Primary Language: Georgian Home Management Skills: independent Meal Prep Responsibility: [...] Assessment: Transfer Assessment: Sit to Stand Transfer Lamb Level: Sit->Stand: independent Skilled Rationale: Cues for increased safety Skilled Intervention/Details: Sit->Stand: x1 EOB Stand to Sit Transfer Lamb Level: Stand->Sit: supervision Assistive Device: Stand->Sit: gait belt, armed chair Skilled Rationale: Verbal cues, Controlled descent for sitting, Cues for increased safety Skilled Intervention/Details: Stand->Sit: cues for hand placement and controlled descent Functional Mobility: Functional Mobility Lamb Level: Functional Mobility/Gait: stand-by assist Assistive Device: Functional Mobility/Gait: gait belt Functional Mobility Distance: Distance needed for limited community mobility Functional Mobility Deficits: Activity tolerance, Balance, Decreased step length, Generalized weakness Functional Mobility Skilled Rationale: Verbal cues, Facilitate postural control Skilled Intervention/Details - Functional Mobility/Gait: cues for upright posture Outcome Score(s): CURRENT [facility] Daily Activity Inpatient Short Form Putting on/Taking Off Lower Body Clothin - A Little Assistance Bathin - A Little Assistance Toiletin - A Little Assistance Putting on/Taking Off Upper Body Clothin - No Assistance Groomin - No Assistance Eatin - No Assistance CURRENT [facility] Activity Raw Score: 21 CURRENT [facility] Activity Functional Limitation/Modifier: 32.79% Currently [...] DAY SURGERY MAIN OR KIDNEY TRANSPLANT W/O [facility] [facility] NEPHRECTOMY N/A 04/12/2020 Laterality: N/A; Surgeon: LU [...] by: Mel Norman OT, OTR/L License #: [id number] pager # [phone] 05/20/2022 Upon discontinuation of Acute Care Occupational Therapy Services or patient discharge from the hospital this note represents the current Occupational Therapy Discharge Summary. documented in this encounter [facility] 05-20-2022 Hospital course Narrative [...] during his recent hospital stay at [facility]. As you may know, George Styles, is [...] Saldana MD Division of Hospital Medicine p: [phone] f: [phone] CONSULTS DURING ADMISSION: IP CONSULT TO SURGERY - UROLOGY IP CONSULT TO NEPHROLOGY - TRANSPLANT (MEDICINE) IP CONSULT TO INTERVENTIONAL RADIOLOGY IP CONSULT TO PHYSICAL THERAPY IP CONSULT TO OCCUPATIONAL THERAPY IP CONSULT TO PHARMACY BEDSIDE DISCHARGE MED DELIVERY IMAGING / PROCEDURES / RESULTS: Should you require further information or copies of results or reports please contact Medical Information Management @ [phone] LABS AT TIME OF DISCHARGE: Lab Results [...] HOME AT DISCHARGE: Zuly Bruno [address] [facility] / [place] [address] MEDICATIONS: Discharge Orders CT ABDOMEN/PELVIS WITHOUT CONTRAST [...] CAPS Generic drug: docusate Follow-up: Zuly Bruno, SURGICAL GARMENT ASSEMBLER [address] [facility] [phone] Schedule an appointment as soon as possible for a visit Follow-up appointment with your, primary care physician within 7-10 days, after discharge. [address] [facility] [phone] Follow up The department of urology will call you with a follow up appointment. LU Ovalle [address] [facility] [phone] Follow up Please make a follow up appointment with Dr. Latham's office. Upcoming Appointments (up to five)-Some appointments for Medical Center outpatient clinics or diagnostic testing locations are not displayed below Provider Department Dept Phone 06/04/2022 10:40 AM [facility] Interventional Radiology Clinic [phone] 06/27/2022 1:30 PM [facility] Department of Radiology Arrive at: Arrive to First Floor Registration Desk [phone] 06/27/2022 2:40 PM Ryan Yepez [facility] Arrive at: Arrive to 2nd Floor, Registration [address] 10/31/2022 1:00 PM Steve Latham [facility] Transplant [facility] [phone] 01/16/2023 9:40 AM TRANSPLANT HEPATOLOGY 3, [facility] Transplant [facility] [phone] Associated attestation - Daya Saldana MD - [...] MD (Peggy) Division of Hospital Medicine Pager [phone] documented in this encounter [facility] 05-20-2022 Hospital Discharge instructions [...] be changed by Interventional Radiology. Please call [phone] to schedule this appointment and with any questions or concerns you may have regarding the nephrostomy tube. If you have questions or concerns, please call Interventional Radiology at SOMEONE FROM INTERVENTIONAL RADIOLOGY WILL CALL YOU FOR A FOLLOW UP IN THE IR CLINIC Giulia Cavazos RN Nurse Coordinator Interventional Radiology Interventional Radiology Outpatient scheduling documented in this encounter [facility] 05-19-2022 Note Formatting of this n [...] Ongoing Goal: Interdisciplinary Rounds/Family Conf Outcome: Ongoing [facility] 05-19-2022 Note Formatting of this n ote might be different from the original. Discussed with [facility] re: possible urine culture performed at their facility. However, based on urinalysis completed at that time, which was only notable for hematuria, culture was not performed and sample no longer feasible for culture. Liam Julian MD Internal Medicine/Pediatrics, PGY-3 [facility] 05-18-2022 Note Formatting of this n ote might be different from the original. 2002: IHIS message sent to Dr Justyn Wen, regarding patient passing a small kidney stone, about the size of pea. MD notified. Stone left in strainer in pt bathroom. 0500: IHIS message sent to Dr Justyn Wen, regarding pt BP 174/77. [facility] 05-18-2022 Note Formatting of this n [...] outcomes by discharge/transition of care. Outcome: Ongoing [facility] 05-18-2022 Note Formatting of this n [...] becomes hyponatremic, NS should instead be used. [facility] Work Phone: 05-18-2022 Note Formatting of this n ote might be different from the original. IHIS chat sent to Dr Tray Quintana, regarding pt BP 190/86. Pt complaining of pain at site of neph tube. PRN pain medication given per order parameters. Pt denies any other symptoms at this time. MD notified and aware. [facility] 05-17-2022 Note Formatting of this n ote might be different from the original. At 0900, I rounded with Dr. Gamez and Dr. Saldana. At that time I checked Mr. Styles's vital signs. His pulse oximeter was low and he was tachypneic. Verbal order at bedside to put nasal cannula on starting at 2liters oxygen and to provide incentive spirometer. [facility] 05-17-2022 Note Formatting of this n ote might be different from the original. Interventional Radiology procedure completed with IR Attending Dr. Heart / Dr. Le of percutaneous right nephrostomy tube placement transplant kidney 10.2 Fr Griffin acosta Pt tolerated procedure with moderate sedation local numbing agent . Transported to inpatient after phase I recovery. Post procedure orders in place. [facility] 05-16-2022 Note Formatting of this n ote might be different from the original. At 1530, I text chavad Kaitlynn Gomez MD that patient has only had 25ml urine output in myers this afternoon. [facility] 05-16-2022 Note Formatting [...] with questions. Evan Byrd MD Urology, PGY-2 #[id number] [facility] Work Phone: 05-16-2022 Note Formatting of this n ote might be different from the original. I certify that this patient requires inpatient services at this time. I anticipate the expected length of stay will include at least two midnights. Inpatient services are due to the following medical concerns Obstructive kidney stone. Plans for post hospitalization care will be discharge to home. [facility] 05-16-2022 Consult note Associated Order (s): IP CONSULT TO NEPHROLOGY - TRANSPLANT (MEDICINE) I saw George Styles at the [facility] on 05/16/2022. Reason for Consultation: [...] he was given flomax and sent home. [place] better but noticed more pain and decreased [...] best assessment and recommendations. Maxi Pringle MD [facility] Work Phone: 05-16-2022 Consult note Associated Order (s): IP CONSULT TO NEPHROLOGY - TRANSPLANT (MEDICINE) I saw George Styles at the [facility] on 05/16/2022. Reason for Consultation: [...] he was given flomax and sent home. [place] better but noticed more pain and decreased [...] kidney, does he need intervention? HPI Mr. Stylse is a 52 y.o. 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 Pt states he went to his local ED [place] and he was put on Flomax and he did improve. Pt states last night he was unable to void with severe right sided abd pain. Pt states nausea and no vomiting or fevers. Pt states he went back to [place] ED at 0100 and they placed a [...] orthotopic (N/A, 04/12/2020); and kidney transplant w/o kas[place] nephrectomy (N/A, 04/12/2020). 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 The kas[place] kidneys are progressively atrophic bilaterally compared to [...] of 06/14/2020 are no longer present. The [place] distal right ureter is decompressed beyond this [...] with surgical history for renal graft and kas[place] right urinary drainage, as a discrete ureteroneocystostomy is not identified, and the graft may be draining via a ureteroureterostomy. Urology consultation recommended. 3. The kas[place] kidneys are bilaterally atrophic, with right renal sinus calcifications consistent with nonobstructing right kas[place] renal calculi up to 6 mm. Normal [...] PGY-3, Department of Urologic Surgery Pager #: [phone] Associated attestation - Ryan Yepez MD - [...] continue flomax documented in this encounter [facility] 05-16-2022 Note Formatting of [...] supported Trust Relationship/Rapport: care explained choices provided [facility] 05-16-2022 Note Formatting of this n ote might be different from the original. On admission to R10, a dual RN initial assessment of skin condition was performed by Kallie Lorenzana RN and Sheri Arguelles RN. Skin Assessment: WDL Jose Score: 20 LDA Added:N Kallie Lorenzana RN [facility] 05-15-2022 Emergency department Note Report given to Kallie RN at 10 [facility] 05-15-2022 Emergency department Note Report given to Kallie RN at [address] Villatoro at bedside, 14ml noted Advised Dr Schneider concerning no urine output via myers catheter. ED Attending George Feliz Jensen has a past medical history of Acute renal failure, CAD (coronary artery disease), Cirrhosis, Dialysis patient, End stage renal disease (06/01/2018), Essential hypertension, benign, Hepatic encephalopathy, History of blood transfusion, and Liver cirrhosis. Presents with a chief complaint of kidney stone and diagnosed Thursday and was sent home with [facility]. He went back to that ED and [...] 04/12/2020 Laterality: N/A; Surgeon: LU Palma; Location: [facility] SAME DAY SURGERY MAIN OR KIDNEY TRANSPLANT W/O [facility] [place] NEPHRECTOMY N/A 04/12/2020 Laterality: N/A; Surgeon: LU Palma; Location: [facility] SAME DAY SURGERY MAIN OR OTHER [...] Resident 05/15/222030 Pt arrives from [facility] with kidney stones. Pt states he had right lower abd pain and right flank pain with blood in his urine since Thursday. Pt states he went to his local ED [place] and he was put on Flomax and he did improve. Pt states last night he was unable to void with severe right sided abd pain. Pt states nausea and no vomiting or fevers. Pt states he went back to [place] ED at 0100 and they placed a myers and CT scan completed and multiple kidney stones noted. [facility] as he had liver and kidney transplant in 03/2020. documented in this encounter [facility] 05-15-2022 History and physical note Internal Medicine Admission History & Physical Patient: George Styles, 1970, [id number] Physician: Evan Bennett MD, PGY1, Pager #[phone], GM 4 service Date of face to [...] DAY SURGERY MAIN OR KIDNEY TRANSPLANT W/O [facility] NEPHRECTOMY N/A 04/12/2020 Laterality: N/A; Surgeon: LU [...] erythema: Skin: No jaundice or rash Neuro: industrial economics professor 3-7, 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 Strength grossly [...] dilation of the calyces may represent narrowing/partial [id number] ofthe ureter and mild hydronephrosis or sequela [...] MD Division of Hospital Medicine [phone] [facility] Work Phone: 05-15-2022 History and physical note Internal Medicine Admission History & Physical Patient: George Styles, 1970, [id number] Physician: Evan Bennett MD, PGY1, Pager #[phone], GM 4 service Date of face to [...] DAY SURGERY MAIN OR KIDNEY TRANSPLANT W/O [place] NEPHRECTOMY N/A 04/12/2020 Laterality: N/A; Surgeon: LU [...] erythema: Skin: No jaundice or rash Neuro: industrial economics professor 3-7, 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 Strength grossly [...] dilation of the calyces may represent narrowing/partial [id number] ofthe ureter and mild hydronephrosis or sequela [...] Medicine [id number] documented in this encounter [facility] 05-15-2022 Emergency department Note Bladder scan with Dr Villatoro at bedside, 14ml noted [facility] 05-15-2022 Consult note Associated [...] states he went to his local ED [place] and he was put on Flomax and he did improve. Pt states last night he was unable to void with severe right sided abd pain. Pt states nausea and no vomiting or fevers. Pt states he went back to [place] ED at 0100 and they placed a [...] orthotopic (N/A, 04/12/2020); and kidney transplant w/o kasigl[place] nephrectomy (N/A, 04/12/2020). 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 The [place] kidneys are progressively atrophic bilaterally compared to [...] of 06/14/2020 are no longer present. The kas[place] distal right ureter is decompressed beyond this [...] with surgical history for renal graft and kas[place] right urinary drainage, as a discrete ureteroneocystostomy is not identified, and the graft may be draining via a ureteroureterostomy. Urology consultation recommended. 3. The kas[place] kidneys are bilaterally atrophic, with right renal sinus calcifications consistent with nonobstructing right kas[place] renal calculi up to 6 mm. Normal [...] PGY-3, Department of Urologic Surgery Pager #: [phone] Associated attestation - Ryan Yepez MD - [...] future before surgical intervention --may continue flomax [facility] Work Phone: 05-15-2022 Emergency department Note Advised Dr Schneider concerning no urine output via myers catheter. [facility] 05-15-2022 Physician Emergency department [...] plan of care. Gian Villatoro MD 05/15/222003 [facility] Work Phone: 05-15-[address] Schneider made aware of only 30 ml urine via myers since arrival to room. [facility] 05-15-2022 Physician Emergency department Note dEPARTMENT [...] DAY SURGERY MAIN OR KIDNEY TRANSPLANT W/O [facility] NEPHRECTOMY N/A 04/12/2020 Laterality: N/A; Surgeon: LU Palma; Location: [facility] SAME DAY SURGERY MAIN OR OTHER [...] incorrections. Matt Schneider MD Resident 05/15/222030 [facility] Work Phone: 05-15-2022 Emergency department Note Pt arrives from [facility] with kidney stones. Pt states he had right lower abd pain and right flank pain with blood in his urine since Thursday. Pt states he went to his local ED [place] and he was put on Flomax and he did improve. Pt states last night he was unable to void with severe right sided abd pain. Pt states nausea and no vomiting or fevers. Pt states he went back to [place] ED at 0100 and they placed a myers and CT scan completed and multiple kidney stones noted. Pt sent to [facility] ED as he had liver and kidney transplant in 03/2020. [facility] 03-14-2022 History of Present illness Narrative [...] Required: No Mailing/Pickup Date: 03/17/2022 Shipping Address: [address] [place] [address] [address] Contact Info: Specialty ([place]) [phone] [facility] [phone] [facility] [phone] David [phone] Bedside Delivery ([facility]) [phone] documented in this encounter [facility] 06-14-2021 History of Present illness Narrative [...] Goal Progress: Satisfactory Contact Info: Specialty ([place]) [phone] Jakob [phone] [facility] [phone] David [phone] Bedside Delivery ([facility]) [phone] [facility]RE[facility]: Call Information: Date [...] Location: Home Signature Required: Yes Shipping Address: [address] [place] [id number] Contact Info: Specialty ([place]) [phone] Jakob [phone] [facility] [phone] David [phone] Bedside Delivery ([facility]) [phone] [facility] Diagnosis FAYE (acute kidney injury)- Primary Acute kidney failure, unspecified Hydronephrosis due to obstruction of ureteral orifice Hydronephrosis due to obstruction of ureteral orifice FAYE (acute kidney injury) Acute kidney failure, unspecified [facility] Diagnosis Follow-up exam- Primary Unspecified follow-up examination [facility] Diagnosis Immunosuppressed status- Primary Unspecified disorder of immune mechanism Kidney replaced by transplant Liver replaced by transplant Abnormal blood chemistry Other abnormal blood chemistry High risk medication use Encounter for long-term (current) use of other medications Aftercare following organ transplant Liver transplant recipient [facility] Diagnosis Attention to nephrostomy- Primary [facility] Diagnosis Other hydronephrosis- Primary [facility] Diagnosis FAYE (acute kidney injury) Acute kidney failure, unspecified [facility] Diagnosis Other hydronephrosis- Primary -donor kidney transplant recipient Kidney replaced by transplant [facility] Diagnosis Other hydronephrosis [facility] Diagnosis 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) Encounter for screening for malignant neoplasm of prostate Special screening for malignant neoplasm of prostate [facility] Diagnosis Abnormal blood chemistry- Primary Other abnormal blood chemistry Liver transplant recipient Kidney replaced by transplant Immunosuppressed status Unspecified disorder of immune mechanism Aftercare following organ transplant [facility] Diagnosis Kidney replaced by transplant- Primary [facility] Diagnosis Immunosuppressed status- Primary Unspecified disorder of immune mechanism Kidney replaced by transplant Aftercare following organ transplant High risk medication use Encounter for long-term (current) use of other medications Other general symptoms and signs Abnormal blood chemistry Other abnormal blood chemistry Hypertension secondary to other renal disorders [facility] Histoplasmosis- Primary [...] Fever, unspecified [facility] Diagnosis Bilateral lower extremity edema- Primary 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) Atherosclerosis 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) Atherosclerosis of aorta Obesity (BMI 30-39.9) DARLENE (obstructive sleep apnea) Obstructive sleep apnea (adult) (pediatric) Tremor Abnormal involuntary movements Immunocompromised (CMS/HCC) Unspecified immunity deficiency Primary hypertension (CMS/HCC) Unspecified essential hypertension Shortness of breath documented in this encounter [facility] (narrative)* Consultation (Routine) - New Request Specialty Diagnoses / Procedures Referred By Deni edwards Referred To Contact Interventional Radiology Diagnoses Hydronephrosis due to obstruction of ureteral orifice Daya Saldana MD [address] [place] [address] Referral ID Status Reason Start Date Expiration Date V isits Requested Visits Authorized [id number] New Request 05/18/2022 06/12/2023 1 1 * Radiology (Emergency) - New Request Specialty Diagnoses / Procedures Referred By Deni edwards Referred To Contact Procedures US RENAL TRANSPLANT SCAN Daya Saldana MD [address] [place] [address] Referral ID Status Reason Start Date Expiration Date V isits Requested Visits Authorized [id number] New Request 05/16/2022 06/10/2023 1 1 * Consultation (Routine) - New Request Specialty Diagnoses / Procedures Referred By Deni edwards Referred To Contact Urology Diagnoses FAYE (acute kidney injury) Ryan Yepez MD [address] [facility] [address] [place] [address] Referral ID Status Reason Start Date Expiration Date V isits Requested Visits Authorized [id number] New Request 05/16/2022 06/10/2023 1 1 * MRI/CAT Scan (Routine) - New Request Specialty Diagnoses / Procedures Referred By Contac t Referred To Contact Diagnoses FAYE (acute kidney injury) Procedures CT ABDOMEN/PELVIS WITHOUT CONTRAST CHG CT SCAN,ABDOMENT AND PELVIS,W/O CONTRAST Ryan Yepez MD [address] [facility] [address] [place] [address] Referral ID Status Reason Start Date Expiration Date V isits Requested Visits Authorized [id number] New Request 05/16/2022 06/10/2023 1 1 * (Routine) - Pending Review Specialty Diagnoses / Procedures Referred By Contac t Referred To Contact Procedures PLATELET MONITORING PER PROTOCOL Daya Saldana MD [address] [place] [address] Referral ID Status Reason Start Date Expiration Date V isits Requested Visits Authorized [id number] Pending Review 05/15/2022 06/09/2023 1 1 * (Routine) - Pending Review Specialty Diagnoses / Procedures Referred By Contac t Referred To Contact Procedures DVT/VTE RISK ASSESSMENT Daya Saldana MD [address] [place] [address] Referral ID Status Reason Start Date Expiration Date V isits Requested Visits Authorized [id number] Pending Review 05/15/2022 06/09/2023 1 1 * (Routine) Specialty Diagnoses / Procedures Referred By Contac t Referred To Contact Evan Bennett MD [address] [place] [id number] Referral ID Status Reason Start Date Expiration Date Visits Re quested Visits Authorized * (Routine) Specialty Diagnoses / Procedures Referred By Contac t Referred To Contact Evan Bennett MD [address] [place] [address] Referral ID Status Reason Start Date Expiration Date Visits Re quested Visits Authorized [facility] for referral (narrative)* Consultation (Routine) - New Request Specialty Diagnoses / Procedures Referred By Contac t Referred To Contact Sleep Medicine Diagnoses Hypoxia Kevin Sage MD [address] [place] [phone] Referral ID Status Reason Start Date Expiration Date V isits Requested Visits Authorized [id number] New Request 09/10/2023 10/04/2024 1 1 * MRI/CAT Scan (Routine) - New Request Specialty Diagnoses / Procedures Referred By Contac t Referred To Contact Diagnoses Histoplasmosis Procedures CT CHEST WITHOUT CONTRAST CHG DIAGNOSTIC COMPUTED TOMOGRAPHY THORAX W/O Kevin Zarate MD [address] [place] [address] Referral ID Status Reason Start Date Expiration Date V isits Requested Visits Authorized [id number] New Request 09/10/2023 10/04/2024 1 1 * Radiology (Routine) - New Request Specialty Diagnoses / Procedures Referred By Contac t Referred To Contact Procedures US RENAL TRANSPLANT SCAN Steve Latham MBBS [address] [place] [address] Referral ID Status Reason Start Date Expiration Date V isits Requested Visits Authorized [id number] New Request 08/29/2023 09/22/2024 1 1 * (Routine) - New Request Specialty Diagnoses / Procedures Referred By Contac t Referred To Contact Procedures PLATELET MONITORING PER PROTOCOL Steve Latham MBBS [address] [place] [address] Referral ID Status Reason Start Date Expiration Date V isits Requested Visits Authorized [id number] New Request 08/28/2023 09/21/2024 1 1 * (Routine) - New Request Specialty Diagnoses / Procedures Referred By Contac t Referred To Contact Procedures DVT/VTE RISK ASSESSMENT Steve Latham MBBS [address] [place] [address] Referral ID Status Reason Start Date Expiration Date V isits Requested Visits Authorized [id number] New Request 08/28/2023 09/21/2024 1 1 [facility] Instructions * Patient Instructions - Christin Elizabeth APRN-ROB - 10/19/2018 9:21 AM EST You should take an extra dose of the lactulose as needed so that you are having 3-4 bowel movementsdaily. You should start the chemical dependency counseling as soon as possible. If you have questions, call the transplant social work lecturer Melania Pierson. in this encounter* Patient Instructions - Sophie Cary RN - 10/12/2018 11:09 AM EST You have been seen in the pre-transplant evaluation clinic by Dr. Restrepo and Sophie Cary. Sophie Cary is your pre-irb compliance coordinator she can be reached at [phone] at any time for questions during the pre-transplant process. Your evaluation is complete pendin. Abdominal ultrasound. 2. 6 minute walk test. 3. Cardiology evaluation. Additionally, your freezer machine operator will recommend testing to screen for coronary artery disease. This will be scheduled for you after your cardiology visit. 4. Your coordinator will be requesting record from your last dental visit, colonoscopy and EGD. 5. Please work to complete social work recommendations. Your social work lecturer will be contacting you to follow up on your progress. 6. You have also been referred for a kidney transplant. An appointment will be scheduled for you sari evaluated in the kidney transplant clinic after you have satisfied requirements dictated by [employer]. Once your testing is complete, we [...] ___ Other Name MRN * Christin Elizabeth, DEEP-SURGICAL GARMENT ASSEMBLER - 10/19/2018 9:00 AM EST Formatting of this note may be different from the original. History of Present Illness: Chief Complaint Patient presents with Follow-up Cirrhosis George Styles is a 48 y.o. male who presents to the [facility] Gastroenterology Clinic today regarding his diagnosis/chief complaint(s) of Cirrhosis secondary to ETOH, with ESRD follows with Dr. Orr. Currently undergoing evaluation for liver/kidney transplant. Has been seen in transplant clinic for eval. Still undergoing pre testing. Diagnosed in April 2018. Last drink was immediately prior to hospital admission in [place] for ACLF. Hospital course notable for ARF [...] kidney transplant evaluation. Pt was AOx3. Transplant Host/Hostess role/function was explained and reviewed. The patient was informed that the results of this assessment will be shared with the referring provider and the transplant team. The patient verbalized understanding of this information. The [facility] psychosocial assessment consent form has been explained to patient and has been signed. Pt is completing this evaluation with brother (David) in the Outpatient setting. NANCYK educated pt on the benefits of completing/filing advanced directives and resources were offered. Pt identifies with CATHOLIC gnosticism. Pt confirms being a [place] Citizen. Pt.'s primary language is Georgian. Pt confirms the ability to read,write, and understand Georgian. Pt denies potential donors. Donor cards and [...] has valid license, does not regularly drive (SURGICAL GARMENT ASSEMBLER recommends that he not to drive). He [...] related disease etoh cirrohosis April dx in [facility] for thirty days. Pt reports learning that [...] as well as referred him to pre irb compliance coordinator. Pt and support demonstrated moderate [...] Patient's brother David is a self employed sewer contractor. Additional support includes his other brother Tyshawn and his Mary live fifteen minutes away. Of note Mary is a clinical sales consultant for a [employer] is available to assist auto parts handler. He confirms being comfortable asking for help. [...] in 2010, he was employed by the [employer]. He has access to SSDI payment (SSDI starts in November) in regards to financial means pre/ post-transplant. Pt confirms (meeting bills currently, ) being able to meet daily needs. Patient's brother asking for additional information on community resources, food stamps and [place]. Refer him to pt.'s dialysis center and the [facility]. Hereports access to Medicaid. Pt. denies [...] court ordered treatment after a DUI charge [facility] in [place], court ordered treatment in 2001 and in [...] by patient from his primary medical provider- [facility] patient was noted as attending an alcohol [...] He was provided with local AOD resources, [facility] AOD informational packet. Pt was referred for [...] Form Ming et al, 2008; Ming et denny, [employer]os[employer] 2012. * Alfredito Restrepo MD - 10/12/2018 10:00 AM EST Formatting of this note may be different from the original. Pretransplant new visit Date of service: 10/12/2018 -Referring assembly lead person for today's consult: -Primary Care Provider: Zuly Bruno CC: Chief Complaint Patient presents with Liver Recipient Evaluation History of Present Illness George Styles is a 48 y.o. male who presents to the [facility] liver transplant surgery clinic today for [...] processes progressing rapidly Unknown * Elisa Tiwari, CONSTRUCTION CONTRACTOR - 10/12/2018 10:00 AM EST Timed up and go 9.9 seconds Customer Service Engineer Left 52.8 pounds Right 44.9 pounds Waist circ 38.5 inches * Sophie Cary, RN - 10/12/2018 10:00 AM EST Formatting of this note may be different from the original. Patient George Styles ([id number]), accompanied by his brother, was seen on [...] any further questions. Sophie DON, RN Liver Satellite Instruction Facilitator Etiology: ETOH HCC: No ETOH: Yes Last [...] Yovani Orr MD [address] [address] Status Reason Specialty Diagnoses / Procedures Referred By Contact Referred To Contact New Request Diagnoses Cirrhosis of liver with ascites, unspecified hepatic cirrhosis type Procedures US ABDOMEN RUQ/LIVER/GB Yovani Orr MD [address] [address] Specialty Diagnoses / Procedures Referred By Contac t Referred To Contact Diagnoses FAYE (acute kidney injury) Procedures CT ABDOMEN/PELVIS WITHOUT CONTRAST CHG CT SCAN,ABDOMENT AND PELVIS,W/O CONTRAST Central Scheduling [address] [place] [phone] Referral ID Status Reason Start Date Expiration Date V isits Requested Visits Authorized [id number] Pending Review 05/16/2022 06/10/2023 1 1 Specialty Diagnoses / Procedures Referred By Contac t Referred To Contact Diagnoses Other hydronephrosis Procedures FLUORO IMAGING FOR UROLOGY Ryan Yepez MD [address] [facility] [address] [place] [address] Referral ID Status Reason Start Date Expiration Date V isits Requested Visits Authorized [id number] New Request 07/07/2022 08/01/2023 1 1 Specialty Diagnoses / Procedures Referred By Contac t Referred To Contact Procedures DIRECT ADMIT REQUEST YeisonSteve MBBS [address] [place] [address] Referral ID Status Reason Start Date Expiration Date V isits Requested Visits Authorized [id number] New Request 08/28/2023 09/21/2024 1 1 Specialty Diagnoses / Procedures Referred By Contac t Referred To Contact Radiology Diagnoses DARLENE (obstructive sleep apnea) Primary hypertension (CMS/HCC) Bilateral lower extremity edema Shortness of breath Procedures Echocardiogram 2D complete Zuly Bruno, BA [address] [place] [address] Referral ID Status Reason Start Date Expiration Date Visits Requested Visits Authorized [id number] Incomplete Perform Procedure 01/06/2024 07/04/2024 1 1 Advance Directives Documents on File Type Date Recorded Patient Security Chief Museum Expl anation Advance Directives and Living Will Power of Historian [employer] Latest Code Status on File Code Status [...] Yovani Orr MD [address] [address] Status Reason Specialty Diagnoses / Procedures Referre d By Contact Referred To Contact Denied Diagnoses Alcoholic cirrhosis, unspecified whether ascites present Pre-transplant evaluation for liver transplant Procedures MRI ABDOMEN WITH CONTRAST ID MRI, ABDOMEN W/CONTRAST Yovani Orr MD [address] [address] Reason Comments Liver Recipient Evaluation Status Reason Specialty Diagnoses / Procedures Referred By Contact Referred To Contact New Request Transplant / Transplant Surgery Procedures PRE NEW PATIENT Yovani Orr MD [address] [place] [address] Alfredito Restrepo MD [address] [place] [address] Reason Comments Reschedule Reason Comments Outside Medical Records Request Reason Comments Social Work Follow-up Reason Comments Kidney Stone Specialty Diagnoses / Procedures Referred By Contdaniel t Referred To Contact Diagnoses Obstructing kidney stone, s/p kidney transplant 2019 Daya Saldana MD [address] [place] [address] [facility] [address] [place] [address] Referral ID Status Reason Start Date Expiration Date Visits Re quested Visits Authorized [id number] 1 1 Reason Comments Follow-up Reason Comments Kidney Recipient Follow-up Liver Recipient Follow-up Reason Comments Consult Reason Comments New Patient Hospital follow up Specialty Diagnoses / Procedures Referred By Deni t Referred To Contact Urology Diagnoses hosp fu with [address] prior Procedures NEW TO DOC/RET PATIENT Zuly Bruno, SURGICAL GARMENT ASSEMBLER [address] [place] [address] Ryan Yepez MD [address] [facility] [address] [place] [address] Referral ID Status Reason Start Date Expiration Date Visits Re quested Visits Authorized [id number] Closed 06/27/2022 07/22/2023 1 1 Specialty Diagnoses / Procedures Referred By Contac t Referred To Contact Diagnoses FAYE (acute kidney injury) Procedures CT ABDOMEN/PELVIS WITHOUT CONTRAST CHG CT SCAN,ABDOMENT AND PELVIS,W/O CONTRAST Central Scheduling [address] [place] [phone] Referral ID Status Reason Start Date Expiration Date V isits Requested Visits Authorized [id number] Pending Review 05/16/2022 06/10/2023 1 1 Reason Comments Follow-up Specialty Diagnoses / Procedures Referred By Contac t Referred To Contact Urology Diagnoses 1 week fu post NT clamp Procedures RETURN PATIENT Zuly Bruno, ROB [address] [place] [address] Ryan Yepez MD [address] [place] [address] [address] [place] [address] Referral ID Status Reason Start Date Expiration Date Visits Requested Visits Authorized [id number] Authorized - 07/07/2022 08/01/2023 2 2 Specialty Diagnoses / Procedures Referred By Contac t Referred To Contact Diagnoses Other hydronephrosis Procedures FLUORO IMAGING FOR UROLOGY Ryan Yepez MD [address] [facility] [address] [place] [address] Referral ID Status Reason Start Date Expiration Date V isits Requested Visits Authorized [id number] New Request 07/07/2022 08/01/2023 1 1 Specialty Diagnoses / Procedures Referred By Contac t Referred To Contact Urology Diagnoses 1 week fu post NT clamp Procedures RETURN PATIENT Zuly Bruno, ROB [address] [place] [address] Ryan Yepez MD [address] [facility] [address] [place] [address] Referral ID Status Reason Start Date Expiration Date Visits Re quested Visits Authorized [id number] Closed 07/07/2022 08/01/2023 2 2 Reason Comments Liver Recipient Follow-up Reason Comments Kidney Recipient Follow-up Reason Comments Kidney Recipient Follow-up Specialty Diagnoses / Procedures Referred By Contac t Referred To Contact Diagnoses Kidney replaced by transplant Steve Latham MBBS [address] [place] [address] [facility] [address] [place] [address] Referral ID Status Reason Start Date Expiration Date Visits Re quested Visits Authorized [id number] 1 1 (unrecognized sect ion and content) No Status Records FoundNo Status Records FoundNo Status Records FoundNo Status Records FoundNo Status Records FoundNo Status Records Found INFORMATION SOURCE (unrecogn ized section and content) DATE CREATED AUTHOR 01/07/2020 [facility] DATE CREATED AUTHOR AUTHOR'S ORGANIZ ATION 01/27/[address] [facility] DATE CREATED AUTHOR AUTHOR'S ORGANIZ ATION 04/13/2023 [facility] DATE CREATED AUTHOR AUTHOR'S ORGANIZ ATION 05/11/2023 [facility] DATE CREATED AUTHOR AUTHOR'S ORGANIZ ATION 10/26/2023 [facility] DATE CREATED AUTHOR AUTHOR'S ORGANIZ ATION 01/07/2024 [facility] Specialists EPIC Care Teams (unrecognized sec tion and content) Administration Clerk Relationship Specialty Start Date End Date Zuly Bruno CNP PCP - General 07/19/18 Comfort Rivera, [facility] [address] [place] [address] Pharmacist Pharmacist 05/16/20 Angel Carpio RPh,PharmD Pharmacist Pharmacist 05/16/20 Te Leigh RP,PharmD Pharmacist Pharmacist 01/09/21 Administration Clerk Relationship Specialty Start Date End Date Zuly Bruno CNP PCP - General 07/19/18 Comfort Rivera [facility] [address] [place] [address] Pharmacist Pharmacist 05/16/20 Angel Carpio RPh,PharmD Pharmacist Pharmacist 05/16/20 Te Leigh [facility],PharmD Pharmacist Pharmacist 01/09/21 Administration Clerk Relationship Specialty Start Date End Date BrianlatishaZuly tipton CNP PCP - General 07/19/18 Administration Clerk Relationship Specialty Start Date End Date BrianlatishaZuly tipton CNP PCP - General 07/19/18 Administration Clerk Relationship Specialty Start Date End Date KristopherlydialatishaZuly tipton CNP PCP - General 07/19/18 Administration Clerk Relationship Specialty Start Date End Date KianaZulyROB PCP - General 07/19/18 Administration Clerk Relationship Specialty Start Date End Date KianaZuly SURGICAL GARMENT ASSEMBLER PCP - General 07/19/18 Administration Clerk Relationship Specialty Start Date End Date KristopherlydialatishaZuly tipton CNP PCP - General 07/19/18 Administration Clerk Relationship Specialty Start Date End Date MarissaZuly tipton SURGICAL GARMENT ASSEMBLER PCP - General 07/19/18 Administration Clerk Relationship Specialty Start Date End Date KianaZuly SURGICAL GARMENT ASSEMBLER PCP - General 07/19/18 Administration Clerk Relationship Specialty Start Date End Date KianaZulyROB PCP - General 07/19/18 Administration Clerk Relationship Specialty Start Date End Date MarissaZuly tiptonROB PCP - General 07/19/18 Administration Clerk Relationship Specialty Start Date End Date Zuly Bruno CNP PCP - General 07/19/18 Administration Clerk Relationship Specialty Start Date End Date Zuly Bruno CNP PCP - General 07/19/18 Administration Clerk Relationship Specialty Start Date End Date Zuly Bruno CNP PCP - General 07/19/18 Administration Clerk Relationship Specialty Start Date End Date Zuly Bruno CNP PCP - General 07/19/18 Administration Clerk Relationship Specialty Start Date End Date Zuly Bruno CNP PCP - General 07/19/18 Evan White DO [facility] [place] [address] Infectious Disease Infectious Disease 09/09/23 Administration Clerk Relationship Specialty Start Date End Date Zuly Bruno CNP PCP - General 07/19/18 Evan White DO [facility] [place] [address] Infectious Disease Infectious Disease 09/09/23 Administration Clerk Relationship Specialty Start Date End Date KristopherlydialatishaZuly tipton ROB PCP - General 07/19/18 Evan White [place] [facility] [place] [address] Infectious Disease Infectious Disease 09/09/23 Administration Clerk Relationship Specialty Start Date End Date Momo Verdugo MD PCP - General Family Medicine 05/21/23 Administration Clerk Relationship Specialty Start Date End Date Momo Verdugo MD PCP - General Family Medicine 05/21/23 Scheduled Active and Recently Administ ered Medications (unrecognized section and content) Medication Order 05/18/2022 05/19/2022 05/20/2022 allopurinol (ZYLOPRIM) tablet 100 mg 100 mg, Oral, DAILY, First dose (after last modification) on 05/17/22 at 0900, Until Discontinued 08 (Given - Provider: Mel Hampton RN) 08 (Given - Provider: Josey Braun RN) 09 (Given - Provider: Leon Cook, RN) amLODIPine (NORVASC) tablet 5 mg 5 mg, Oral, DAILY, First dose on 05/16/22 at 0900, Until Discontinued 08 (Given - Provider: Mel Hampton RN) 08 (Given - Provider: Josey Braun, SAMI) 0932 (Given - Provider: Leon Cook, RN) aspirin chewable tablet 81 mg 81 mg, Oral, DAILY, First dose on 05/16/22 at 0900, Until Discontinued 806 (Given - Provider: Mel Hampton RN) 08 (Given - Provider: Josey Braun, SAMI) 0930 (Given - Provider: Leon Cook, RN) atorvastatin (LIPITOR) tablet 20 mg 20 mg, Oral, DAILY AT BEDTIME, First dose on Marta 05/15/22 at 2215, Until Discontinued 1999 (Given - Provider: Carolyn Isaac RN) 2058 (Given - Provider: Carolyn Isaac RN) 2099 (Canceled Entry - Provider: System Discharge - [...] RN) 1723 ($$New Bag$$ - Provider: Leon Cook, SAMI)1747 (Rate/Dose Verify - Provider: Leon Cook RN) [...] 08 (Given - Provider: Josey Braun RN) 0932 [...] modification) on Thu05/16/22 at 1600, Until Discontinued 06 (Unheld by provider - Provider: Nishant Gamez MD)0806 (Given - Provider: Mel Hampton RN)1558 (Given - Provider: Mel Hampton RN)2131 (Given - Provider: Carolyn Isaac RN) 0804 (Given - Provider: Josey Braun RN)1754 (Given - Provider: Josey Braun RN)2059 (Given - Provider: Carolyn Isaac RN) 0742 [...] whole; do not split, crush, or chew. 08 (Given - Provider: Mel Hampton RN)1999 (Given - Provider: Carolyn Isaac RN) 08 (Given - Provider: Josey Braun RN)2058 (Given - Provider: Carolyn Isaac, RN) 0742 (Given - Provider: Leon Cook RN)1999 (Canceled Entry - Provider: System Discharge - Comment: Automatically canceled at discontinue of medication order) polyethylene glycol (MIRALAX) packet 17 g 17 g, Oral, EVERY 12 HOURS, First dose (after last modification) on Thu05/16/22 at 0900, Until Discontinued 0810 (Not Given - Provider: Mel Hampton RN - Reason: Patient with symptoms)1958 (Given - Provider: Carolyn Isaac RN) 113 (Not Given - Provider: Josey Braun RN - Reason: Patient/family refused)2099 (Not Given - Provider: Carolyn Isaac RN - Reason: Patient/family refused - Comment: pt had multiple BM today) 0931 (Given - Provider: Leon Cook, SAMI)2099 (Canceled Entry - Provider: System Discharge - Comment: Automatically canceled at discontinue of medication order) potassium chloride (K-DUR) tablet ER 20 mEq (COMPLETED) 20 mEq, Oral, ONCE, 1 dose, On Thu05/18/22 at 1715, Swallow tablets whole; do not [...] 08 (Given - Provider: Josey Braun RN) 0932 (Given - Provider: Leon Cook RN) sodium-potassium phosphate (K-PHOS NEUTRAL) tablet 1,000 mg (COMPLETED) 1,000 mg, Oral, ONCE, 1 dose, On Thu05/18/22 at 1715 1735 (Given - Provider: Mel Hampton RN) sodium-potassium phosphate (K-PHOS NEUTRAL) tablet 1,000 mg (COMPLETED) 1,000 mg, Oral, ONCE, 1 dose, On 05/19/22 at 0900 0805 (Given - Provider: Josey [...] Isaac RN) 0931 (Given - Provider: Leon Cook RN)2100 [...] Braun RN) 0933 (Given - Provider: Leon Cook, SAMI) Continuous Medication Order 05/18/2022 05/19/2022 05/20/2022 lactated [...] Hampton RN) 1501 (Given - Provider: Leon Cook, SAMI) benzocaine-menthol (CEPACOL) 15-3.6 MG per lozenge 1 lozenge 1 lozenge, Oral, EVERY 2 HOURS NEEDED, Starting on Marta 05/15/22 at 2209, Until e 05/20/22 at 2110, Sore Throat, Max 8 lozenges/day Patient may self-administer. guaiFENesin (ROBITUSSIN) oral solution 400 mg 400 mg, Oral, EVERY 6 HOURS NEEDED, Starting on Marta 05/15/22 at 2209, Until 05/20/22 at 2110, Cough, Congestion iodixanol (VISIPAQUE) injection 320 mg/mL for [facility] IR NEEDED, Starting on 05/17/22 at 1101, Until Tue 21/22 at 2110, CT Procedure melatonin tablet 3 mg 3 mg, Oral, DAILY AT BEDTIME NEEDED, Starting on Thu05/15/22 at 2206, Until Thu05/20/22 at 0, Insomnia ondansetron (ZOFRAN) tablet 4 mg(Linked Group 1) 4 mg, Oral, EVERY 6 HOURS NEEDED, Starting on Thu05/15/22 at 2206, Until Thu05/20/22 at 0, Nausea / Vomiting, 1st line for Nausea/Vomiting ondansetron 4mg/2ml (ZOFRAN) injection 4 mg(Linked Group 1) 4 mg, Intravenous, EVERY 6 HOURS NEEDED, Starting on Thu05/15/22 at 2206, Until Thu05/20/22 at 2109, Nausea / Vomiting, 1st line for Nausea/Vomiting oxyCODONE (ROXICODONE) tablet 5 mg(Linked Group 2) 5 mg, Oral, EVERY 4 HOURS NEEDED, Starting on Thu05/16/22 at 0614, Until Thu05/20/22 at 2109, Severe Pain, Moderate Pain 0338 (See Alternative - Provider: Carolyn Isaac RN)0806 (See Alternative - Provider: Mel Hampton, SAMI) 0825 (Given - Provider: Josey Braun, SAMI)2104 (Given - Provider: Carolyn Isaac RN) oxyCODONE HCl (ROXICODONE) tablet 10 mg(Linked Group 2) 10 mg, Oral, EVERY 4 HOURS NEEDED, Starting on Thu05/16/22 at 0614, Until Thu05/20/22 at 2109, Severe Pain 0338 (Given - Provider: Carolyn Isaac RN)0806 (Given - Provider: Mel Hampton RN) 0825 (See Alternative - Provider: Josey Braun, SAMI)2104 (See Alternative - Provider: Carolyn Isaac RN) sodium chloride 0.9% IV solution 250 mL Intravenous, at 20 mL/hr, NEEDED, Starting on Thu05/15/22 at 2206, Until Thu05/20/22 at 2109, Carrier Fluid - See Admin. Inst, 250mL [...] Intravenous, EVERY 6 HOURS NEEDED, Starting on Thu05/15/22 at 2206, Until Thu05/20/22 at 2110, Nausea / Vomiting, 1st line for Nausea/Vomiting Or ondansetron (ZOFRAN) tablet 4 mgJump to med 4 mg, Oral, EVERY 6 HOURS NEEDED, Starting on Thu05/15/22 at 2206, Until Thu05/20/22 at 2110, Nausea [...] dose on 08/29/23 at 0900, Until Discontinued 0753 (Given - Provider: Aixa Holden RN) 0829 (Given - Provider: Terra Heart RN) 0957 (Given - Provider: Cheyanne Mcdonough, SAMI) amLODIPine (NORVASC) tablet 5 mg 5 mg, Oral, EVERY 24 HOURS, First dose on Thu09/03/23 at 2100, Until Discontinued 2035 (Given - Provider: Girish Nunez RN) 2024 (Given - Provider: Carolyn Plasencia, SAMI) aspirin chewable tablet 81 mg 81 mg, Oral, DAILY, First dose on Thu08/29/23 at 0900, Until Discontinued 075 (Given - Provider: Aixa Holden RN) 08 (Given - Provider: Terra Heart RN) 0957 (Given - Provider: Cheyanne Mcdonough, SAMI) Atorvastatin (LIPITOR) tablet 20 mg 20 mg, Oral, DAILY AT BEDTIME, First dose on Thu08/28/23 at 2100, Until Discontinued 2099 (Hold - Provider: Girish Nunez RN - Reason: Other) 2100 (Automatically Held) 164 (Unheld by provider - Provider: System Discharge) faMOTIdine (PEPCID) tablet 20 mg (CANCELED) 20 mg, Oral, 2 TIMES DAILY, First dose on Thu08/28/23 at 1800, Until Discontinued 752 (Given - Provider: Aixa Holden RN) Gabapentin (NEURONTIN) capsule 400 mg 400 mg, Oral, DAILY AT BEDTIME, First dose on Thu08/28/23 at 2100, Until Discontinued 2035 (Given - Provider: Girish Nunez RN) 2024 (Given - Provider: Carolyn Plasencia RN) Heparin injection 5,000 Units 5,000 Units, Subcutaneous, EVERY 8 HOURS (0800/1600/2200), First dose on Thu08/28/23 at 1745, Until Discontinued 08 (Not Given - Provider: Aixa Holden RN - Reason: Patient/family refused)145 (Not Given - Provider: Aixa Holden RN - Reason: Patient/family refused)2035 (Not Given - Provider: Girish Nunez RN [...] Heart RN) 0610 (Given - Provider: Carolyn Plasencia RN) magnesium oxide (MAG-OX) tablet 800 mg 800 [...] needed. 0753 (Given - Provider: Aixa Holden RN)203 (Given - Provider: Girish Nunez RN) 0829 (Given - Provider: Terra Heart RN)2024 (Given - Provider: Carolyn Plasencia RN) 0958 (Given - Provider: Cheyanne Mcdonough RN) Potassium chloride (K-DUR) tablet ER 20 [...] half swallowed separately. 08 (Given - Provider: Terra Heart RN) 0958 (Given - Provider: Cheaynne Mcdonough RN) Sulfamethoxazole-trime thoprim (BACTRIM DS) 800-160 MG per tablet 1 tablet 1 tablet, Oral, THREE TIMES WEEKLY (Once per day on Thu), First dose (after last modification) on Thu09/04/23 at 0900, Until Discontinued 0956 (Given - Provider: Aixa Holden RN) 1000 (Given - Provider: Cheyanne Mcdonough RN) tacrolimus (PROGRAF) susp 0.25 mg (CANCELED) 0.25 [...] Heart, SAMI) 0957 (Given - Provider: Cheyanne Mcdonough RN) PRN Medication Order 09/09/2023 09/10/2023 09/11/2023 Acetaminophen [...] 1645, Insomnia 2221 (Given - Provider: Girish Nunez RN) 2205 (Given - Provider: Carolyn Plasencia RN) Ondansetron (ZOFRAN) tablet 4 mg(Linked Group 1) [...] BE BASED ON THE PRIMARY CLINICAL RECORDS. [facility] [employer] [facility]. provides no warranty or guarantee of the accuracy or completeness of information in this document.
[2024-01-08 07:28] LABS: Basophils Percent Auto 0.5 % (0.2-2.0); Eosinophils Absolute Auto 0.1 10^3/uL (0.0-0.7); Eosinophils Percent Auto 2.8 % (0.9-7.0); Hematocrit 43.7 % (42.0-54.0); Immature Granulocytes Abs Auto 0.01 10^3/uL (0.00-0.03); Immature Granulocytes Pct Auto 0.3 % (0.0-0.5); Lymphocytes Absolute Auto 1.5 10^3/uL (1.2-3.8); Lymphocytes Percent Auto 37.5 % (20.5-60.0); Mean Corpuscular Hemoglobin 28.4 pg (25.9-34.0); Mean Corpuscular Volume 88.6 fL (80.0-94.0); Mean Platelet Volume 10.3 fL (9.5-13.5); Monocytes Absolute Auto 0.5 10^3/uL (0.3-0.8); Monocytes Percent Auto 11.9 % (1.7-12.0); Neutrophils Absolute Auto 1.9 10^3/uL (1.4-6.5); Platelet Count 180 10^3/uL (150-450); Red Blood Count 4.93 10^6/uL (4.70-6.10); Red Cell Distribution Width 13.8 % (11.0-15.0)
[2024-01-08 07:55] LABS: Creatinine Urine Random 131.98 mg/dL (20.00-300.00); Protein Creatinine Ratio Urine 0.16; Total Protein Urine Random 20.8 mg/dL (<=11.9)
[2024-01-08 07:57] LABS: Alanine Aminotransferase 22 U/L (16-63); Albumin Level 3.7 g/dL (3.4-5.0); Alkaline Phosphatase 94 U/L (46-116); Anion Gap 11.8; Aspartate Amino Transferase 25 U/L (15-37); BUN Creatinine Ratio 11.5; Bilirubin Direct 0.3 mg/dL (0.0-0.2); Bilirubin Total 2.3 mg/dL (0.2-1.0); Calcium 8.9 mg/dL (8.5-10.1); Carbon Dioxide 28.1 mmol/L (21.0-32.0); Chloride 106 mmol/L (98-107); Estimated GFR (African America >60 (>=60); Estimated GFR (Non-African Ame 58 (>=60); Gamma Glutamyl Transpeptidase 16 U/L (15-85); Glucose 105 mg/dL (74-106); Magnesium 1.7 mg/dL (1.8-2.4); Phosphorus 3.4 mg/dL (2.6-4.7); Potassium 3.9 mmol/L (3.5-5.1); Sodium 142 mmol/L (136-145)
[2024-01-12 06:12] LABS: Tacrolimus (FK506), Blood 5.2 ng/mL (2.0-20.0)
== END 2024-01-08 06:32 | disposition home or self-care (01) ==
LOC: LAB 06:33
PROVIDERS: PCP Nurse Practitioner
DX: R79.9 Abnormal finding of blood chemistry, unspecified (principal); Z94.0 Kidney transplant status; Z48.298 Encounter for aftercare following other organ transplant; D84.9 Immunodeficiency, unspecified; Z94.4 Liver transplant status; B39.9 Histoplasmosis, unspecified
CPT/HCPCS: 36415; 80048; 80197; 82042; 82247; 82248; 82570; 82977; 83735; 84075; 84100; 84156; 84450; 84460; 85025

== ENCOUNTER 2024-01-15 15:59 | Emergency (ER) | payer MEDICARE, MEDICAID, SELFPAY ==
[2024-01-15] VITALS (38 sets, daily range): BP systolic 132–147; BP diastolic 62–76; PULSE 54–95; RESP 10–32; TEMP 36.6–36.9; O2SAT 87–99; BMI 32.5
--- NOTE | 2024-01-15 16:33 | ECG_ITS ---
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
--- NOTE | 2024-01-15 16:34 | XR_ITS ---
[place] [id number] Patient Name: GEORGE MCCARTNEY MRN: [id number] date: 1970 Sex: M Assigned Patient Location: ER Current Patient Location: Accession/Order Number: [id number] Exam Date: 01/15/2024 16:45 Report Date: 01/15/2024 17:38 At the request of: DYLLAN DE LEON Procedure: XR chest 1V ONE-VIEW CHEST RADIOGRAPH, 01/15/2024 4:45 PM EST COMPARISON: Chest, 08/20/2023. CLINICAL HISTORY: short of breath. Findings and impression: 1. Moderate-sized right pleural effusion with partial consolidation of the right lower lobe and right middle lobe concerning for atelectasis or pneumonia. 2. Pulmonary venous hypertension/pulmonary vascular congestion. 3. Mild cardiomegaly. 4. No acute osseous abnormality. Electronically authenticated by: Bozena VICENTE Date: 01/15/2024 17:38
[2024-01-15 16:49] LABS: Basophils Percent Auto 0.5 % (0.2-2.0); Eosinophils Absolute Auto 0.1 10^3/uL (0.0-0.7); Eosinophils Percent Auto 1.9 % (0.9-7.0); Hematocrit 39.5 % (42.0-54.0); Hemoglobin 12.5 g/dL (14.0-18.0); Immature Granulocytes Abs Auto 0.01 10^3/uL (0.00-0.03); Immature Granulocytes Pct Auto 0.3 % (0.0-0.5); Lymphocytes Absolute Auto 1.3 10^3/uL (1.2-3.8); Lymphocytes Percent Auto 33.5 % (20.5-60.0); Mean Corpuscular HGB Conc 31.6 g/dL (29.9-35.2); Mean Corpuscular Hemoglobin 28.4 pg (25.9-34.0); Mean Corpuscular Volume 89.8 fL (80.0-94.0); Mean Platelet Volume 10.3 fL (9.5-13.5); Monocytes Absolute Auto 0.4 10^3/uL (0.3-0.8); Monocytes Percent Auto 11.4 % (1.7-12.0); Neutrophils Percent Auto 52.4 % (43.0-75.0); Platelet Count 173 10^3/uL (150-450); Red Cell Distribution Width 13.8 % (11.0-15.0); White Blood Count 3.8 10^3/uL (4.0-11.0)
[2024-01-15 16:53] LABS: Adenovirus NOT DETECTED (NOT DETECTE); Bordetella parapertussis NOT DETECTED (NOT DETECTE); Coronavirus 229E NOT DETECTED (NOT DETECTE); Coronavirus HKU1 NOT DETECTED (NOT DETECTE); Coronavirus NL63 NOT DETECTED (NOT DETECTE); Coronavirus OC43 NOT DETECTED (NOT DETECTE); Human Metapneumovirus NOT DETECTED (NOT DETECTE); Human Rhinovirus/Enterovirus NOT DETECTED (NOT DETECTE); Influenza A NOT DETECTED (NOT DETECTE); Influenza B NOT DETECTED (NOT DETECTE); Mycoplasma pneumoniae NOT DETECTED (NOT DETECTE); Parainfluenza Virus 1 NOT DETECTED (NOT DETECTE); Parainfluenza Virus 2 NOT DETECTED (NOT DETECTE); Parainfluenza Virus 3 NOT DETECTED (NOT DETECTE); Parainfluenza Virus 4 NOT DETECTED (NOT DETECTE); Respiratory Syncytial Virus NOT DETECTED (NOT DETECTE); SARS-CoV-2 NOT DETECTED (NOT DETECTE)
[2024-01-15 16:57] LABS: Partial Thromboplastin Time 28.2 sec (22.3-36.2); Prothrombin Time 11.6 sec (9.0-11.6)
[2024-01-15] MEDS: IPRATROPIUM/ALBUTEROL SULFATE 3 ML AMPUL.NEB IH (16:58)
[2024-01-15 17:08] LABS: Alanine Aminotransferase 19 U/L (16-63); Albumin Level 3.4 g/dL (3.4-5.0); Alkaline Phosphatase 93 U/L (46-116); Anion Gap 11.5; Aspartate Amino Transferase 24 U/L (15-37); BUN Creatinine Ratio 16.5; Bilirubin Total 1.9 mg/dL (0.2-1.0); Calcium 8.9 mg/dL (8.5-10.1); Carbon Dioxide 25.1 mmol/L (21.0-32.0); Chloride 106 mmol/L (98-107); Estimated GFR (African America >60 (>=60); Estimated GFR (Non-African Ame 56 (>=60); Globulin 3.4 g/dL; Glucose 142 mg/dL (74-106); Potassium 3.6 mmol/L (3.5-5.1); Sodium 139 mmol/L (136-145); Total Protein 6.8 g/dL (6.4-8.2); Troponin I High Sensitivity 28.6 pg/mL (4.0-76.1)
--- NOTE | 2024-01-15 17:54 | ED.GENADUL1 ---
Documented by User: Charlotte De Leon 01/15/24 19:50 HPI - General Adult General Chief complaint: Shortness of Breath/Dyspnea Stated complaint: complaining sob-liver/kidney transplant Time Seen by Provider: 01/15/24 16:32 Source: patient Mode of arrival: law enforcement History of Present Illness HPI narrative: 53-year-old male presents to the emergency room chief complaint of shortness of breath. Patient states he had a history of pneumonia in the past the symptoms are similar. Patient has a history of liver and kidney transplant in April 2020 at [facility]. Patient states he saw his primary care physician Mihaela Romeo earlier this week and she had ordered an echo and a ultrasound of the liver which has not yet been completed. Upon arrival to the emergency room patient was hypoxic at 88% on room air. Patient does not appear toxic. He is not febrile. He states he had fungal pneumonia 1 year ago and they have been decreasing his fungal medication over the last 2 weeks. Related Data Home Medications Medication Instructions Recorded Confirmed allopurinol 100 mg tablet 200 mg PO DAILY 08/20/23 08/20/23 amlodipine 5 mg tablet 5 mg PO DAILY 08/20/23 08/20/23 atorvastatin 20 mg tablet 20 mg PO DAILY 08/20/23 08/20/23 famotidine 20 mg tablet 20 mg PO Q12H 08/20/23 08/20/23 gabapentin 400 mg capsule 400 mg PO DAILY 08/20/23 08/20/23 losartan 50 mg tablet 50 mg PO BID 08/20/23 08/20/23 mycophenolate sodium 180 mg 360 mg PO Q12H 08/20/23 08/20/23 tablet,delayed release tacrolimus 0.5 mg capsule, 0.5 mg PO Q12H 08/20/23 08/20/23 immediate-release tamsulosin 0.4 mg capsule 0.4 mg PO Q24H 08/20/23 08/20/23 triamcinolone acetonide 0.1 % 1 applic topical BID 08/20/23 08/20/23 topical cream Previous Rx's Medication Instructions Recorded benzonatate 100 mg capsule 100 mg PO TID PRN cough #20 caps 08/20/23 Allergies Allergy/AdvReac Type Severity Reaction Status Date / Time No Known Drug Allergies Allergy Verified 08/20/23 16:08 PFSH PFSH Social History Smoking status: Former smoker Exam Constitutional Vital Signs, click to edit/add: Last Vital Signs Temp 97.8 F 01/15/24 19:44 Pulse 56 L 01/15/24 18:10 Resp 32 H 01/15/24 18:10 BP 147/76 H 01/15/24 16:09 Pulse Ox 95 01/15/24 18:10 O2 Del Method Room Air 01/15/24 17:00 O2 Flow Rate 2 01/15/24 16:58 Course Vital Signs Vital signs: Vital Signs Temperature 98.4 F 01/15/24 16:06 Pulse Rate 66 01/15/24 16:06 Respiratory Rate 22 01/15/24 16:06 Blood Pressure 147/76 H 01/15/24 16:06 Pulse Oximetry 89 L 01/15/24 16:06 Oxygen Delivery Method Room Air 01/15/24 16:06 Temperature 97.8 F 01/15/24 19:44 Pulse Rate 56 L 01/15/24 18:10 Respiratory Rate 32 H 01/15/24 18:10 Blood Pressure 147/76 H 01/15/24 16:09 Pulse Oximetry 95 01/15/24 18:10 Oxygen Delivery Method Room Air 01/15/24 17:00 Oxygen Delivery Flow Rate 2 01/15/24 16:58 Medical Decision Making MDM Narrative Medical decision making narrative: 53-year-old male presents to the emergency room chief complaint of shortness of breath. Patient states he had a history of pneumonia in the past the symptoms are similar. Patient has a history of liver and kidney transplant in April 2020 at [facility]. Patient states he saw his primary care physician Mihaela Romeo earlier this week and she had ordered an echo and a ultrasound of the liver which has not yet been completed. Upon arrival to the emergency room patient was hypoxic at 88% on room air. Patient does not appear toxic. He is not febrile. He states he had fungal pneumonia 1 year ago and they have been decreasing his fungal medication over the last 2 weeks. Upon arrival To emergency room IV was established, Chest x-ray shows right lower lobe pleural effusion with consolidation in the middle and lower lobe. Patient vital signs have been stable he is 96 to 97% on 2 L of oxygen. 1830Restart our hospitalist Dr. Rivera who wishes patient needs to be transferred to a tertiary facility. 1835Transfer at [facility] were contacted. transplants were performed in April [address]. Dr. Perrin agrees to admit the patient. Juan IV. Patient is made aware of transfer agrees with plan of care. Patient is stable this time. We are awaiting a callback from [facility] for a bed. 1945 [facility], Awaiting transfer Differential Diagnosis Differential Diagnosis: pneumonia covid Medical Records Medical records reviewed: Yes I reviewed the patient's medical records Lab Data Lab results reviewed: Yes I reviewed the patient's lab results Labs: Lab Results 01/15/24 01/15/24 Range/Units 16:15 16:45 WBC 3.8 L (4.0-11.0) 10^3/uL RBC 4.40 L (4.70-6.10) 10^6/uL Hgb 12.5 L (14.0-18.0) g/dL Hct 39.5 L (42.0-54.0) % MCV 89.8 (80.0-94.0) fL MCH 28.4 (25.9-34.0) pg MCHC 31.6 (29.9-35.2) g/dL RDW 13.8 (11.0-15.0) % Plt Count 173 (150-450) 10^3/uL MPV 10.3 (9.5-13.5) fL Neut % (Auto) 52.4 (43.0-75.0) % Lymph % (Auto) 33.5 (20.5-60.0) % Iroquois % (Auto) 11.4 (1.7-12.0) % Eos % (Auto) 1.9 (0.9-7.0) % Baso % (Auto) 0.5 (0.2-2.0) % Neut # (Auto) 2.0 (1.4-6.5) 10^3/uL Lymph # (Auto) 1.3 (1.2-3.8) 10^3/uL [place]ois # (Auto) 0.4 (0.3-0.8) 10^3/uL Eos # (Auto) 0.1 (0.0-0.7) 10^3/uL Baso # (Auto) 0.0 (0.0-0.1) 10^3/uL Abs Immat Gran (auto) 0.01 (0.00-0.03) 10^3/uL Imm/Tot Granulo (auto) 0.3 (0.0-0.5) % PT 11.6 (9.0-11.6) sec INR 1.10 APTT 28.2 (22.3-36.2) sec Sodium 139 (136-145) mmol/L Potassium 3.6 (3.5-5.1) mmol/L Chloride 106 (98-107) mmol/L Carbon Dioxide 25.1 (21.0-32.0) mmol/L Anion Gap 11.5 BUN 22.0 H (7.0-18.0) mg/dL Creatinine 1.33 H (0.70-1.30) mg/dL Est GFR ( Amer) >60 (>=60) Est GFR (Non-Af Amer) 56 L (>=60) BUN/Creatinine Ratio 16.5 Glucose 142 H (74-106) mg/dL Calcium 8.9 (8.5-10.1) mg/dL Total Bilirubin 1.9 H (0.2-1.0) mg/dL AST 24 (15-37) U/L ALT 19 (16-63) U/L Alkaline Phosphatase 93 (46-116) U/L Troponin I High Sens 28.6 (4.0-76.1) pg/mL NT-Pro-B Natriuret Pep 929.0 H (<=900.0) pg/mL Total Protein 6.8 (6.4-8.2) g/dL Albumin 3.4 (3.4-5.0) g/dL Globulin 3.4 g/dL Albumin/Globulin Ratio 1.0 Adenovirus (PCR) Not detected (NOT DETECTE) C. pneumoniae DNA (PCR) Not detected (NOT DETECTE) Coronavirus Type OC43 Not detected (NOT DETECTE) Coronavirus Type HKU1 Not detected (NOT DETECTE) Coronavirus Type 229E Not detected (NOT DETECTE) Coronavirus Type NL63 Not detected (NOT DETECTE) Human Metapneumovir PCR Not detected (NOT DETECTE) M. pneumoniae (PCR) Not detected (NOT DETECTE) Parainfluenza PCR Not detected (NOT DETECTE) Parainfluenza 2 (PCR) Not detected (NOT DETECTE) Parainfluenza 3 (PCR) Not detected (NOT DETECTE) Parainfluenza 4 (PCR) Not detected (NOT DETECTE) RSV (RT-PCR) Not detected (NOT DETECTE) Entero/Rhino (PCR) Not detected (NOT DETECTE) SARS-CoV-2 (PCR) Not detected (NOT DETECTE) Bordetella pertussis (PCR) Not detected (NOT DETECTE) B parapertussis DNA PCR Not detected (NOT DETECTE) Influenza Type A (PCR) Not detected (NOT DETECTE) Influenza Type B (PCR) Not detected (NOT DETECTE) Imaging Data Chest x-ray: Attestation: I have reviewed the pertinent imaging results. Radiologist's impression: CHARLOTTE DE LEON Procedure: XR chest 1V ONE-VIEW CHEST RADIOGRAPH, 01/15/2024 4:45 PM EST COMPARISON: Chest, 08/20/2023. CLINICAL HISTORY: short of breath. Findings and impression: 1. Moderate-sized right pleural effusion with partial consolidation of the right lower lobe and right middle lobe concerning for atelectasis or pneumonia. 2. Pulmonary venous hypertension/pulmonary vascular congestion. 3. Mild cardiomegaly. 4. No acute osseous abnormality. Electronically authenticated by: Bozena VICENTE Date: 01/15/2024 17:38 ECG Data Interpretation: 1612 Sinus rhythm with a rate of 60 bpm MO interval 186 ms QRS duration 92 ms no STEMI Discharge Plan Discharge Chief Complaint: Shortness of Breath/Dyspnea Clinical Impression: Hypoxia, Pneumonia Patient Disposition: [facility] Time of Disposition Decision: 19:51 Condition: Good Mode of Transportation: EMS Documented by User: Eduardo Samano MD 01/15/24 20:31 HPI - General Adult General Chief complaint: Shortness of Breath/Dyspnea Stated complaint: complaining sob-liver/kidney transplant Time Seen by Provider: 01/15/24 16:32 Related Data Home Medications Medication Instructions Recorded Confirmed allopurinol 100 mg tablet 200 mg PO DAILY 08/20/23 08/20/23 amlodipine 5 mg tablet 5 mg PO DAILY 08/20/23 08/20/23 atorvastatin 20 mg tablet 20 mg PO DAILY 08/20/23 08/20/23 famotidine 20 mg tablet 20 mg PO Q12H 08/20/23 08/20/23 gabapentin 400 mg capsule 400 mg PO DAILY 08/20/23 08/20/23 losartan 50 mg tablet 50 mg PO BID 08/20/23 08/20/23 mycophenolate sodium 180 mg 360 mg PO Q12H 08/20/23 08/20/23 tablet,delayed release tacrolimus 0.5 mg capsule, 0.5 mg PO Q12H 08/20/23 08/20/23 immediate-release tamsulosin 0.4 mg capsule 0.4 mg PO Q24H 08/20/23 08/20/23 triamcinolone acetonide 0.1 % 1 applic topical BID 08/20/23 08/20/23 topical cream Previous Rx's Medication Instructions Recorded benzonatate 100 mg capsule 100 mg PO TID PRN cough #20 caps 08/20/23 Allergies Allergy/AdvReac Type Severity Reaction Status Date / Time No Known Drug Allergies Allergy Verified 08/20/23 16:08 [facility] Social History Smoking status: Former smoker Exam Constitutional Vital Signs, click to edit/add: Last Vital Signs Temp 97.8 F 01/15/24 19:44 Pulse 56 L 01/15/24 18:10 Resp 32 H 01/15/24 18:10 BP 147/76 H 01/15/24 16:09 Pulse Ox 95 01/15/24 18:10 O2 Del Method Room Air 01/15/24 17:00 O2 Flow Rate 2 01/15/24 16:58 Course Vital Signs Vital signs: Vital Signs Temperature 98.4 F 01/15/24 16:06 Pulse Rate 66 01/15/24 16:06 Respiratory Rate 22 01/15/24 16:06 Blood Pressure 147/76 H 01/15/24 16:06 Pulse Oximetry 89 L 01/15/24 16:06 Oxygen Delivery Method Room Air 01/15/24 16:06 Temperature 97.8 F 01/15/24 19:44 Pulse Rate 56 L 01/15/24 18:10 Respiratory Rate 32 H 01/15/24 18:10 Blood Pressure 147/76 H 01/15/24 16:09 Pulse Oximetry 95 01/15/24 18:10 Oxygen Delivery Method Room Air 01/15/24 17:00 Oxygen Delivery Flow Rate 2 01/15/24 16:58 Medical Decision Making MDM Narrative Medical decision making narrative: 53-year-old male presents to the emergency room chief complaint of shortness of breath. Patient states he had a history of pneumonia in the past the symptoms are similar. Patient has a history of liver and kidney transplant in April 2020 at [facility]. Patient states he saw his primary care physician Mihaela Romeo earlier this week and she had ordered an echo and a ultrasound of the liver which has not yet been completed. Upon arrival to the emergency room patient was hypoxic at 88% on room air. Patient does not appear toxic. He is not febrile. He states he had fungal pneumonia 1 year ago and they have been decreasing his fungal medication over the last 2 weeks. Upon arrival To emergency room IV was established, Chest x-ray shows right lower lobe pleural effusion with consolidation in the middle and lower lobe. Patient vital signs have been stable he is 96 to 97% on 2 L of oxygen. [address] Rivera who wishes patient needs to be transferred to a tertiary facility. 1835Transfer at [facility] were contacted. transplants were performed in April [address]. [address]. Perrin agrees to admit the patient. Zosyn IV. Patient is made aware of transfer agrees with plan of care. Patient is stable this time. We are awaiting a callback from [facility] for a bed. 194 pt [facility] bed at [facility], Awaiting transfer I, Dr Samano, have reviewed the above progress note and course of action in the ER; agree with the above. I have personally seen and evaluated this patient, gone over history and physical, and discussed disposition and treatment plan with the patient. Critical care time 35 minutes exclusive from separate billable procedures that were performed. The following was considered in the determination of critical care but not limited to the level of medical decision making, intensive cardiac and/or respiratory monitoring, frequent vital sign monitoring, evaluation of laboratory studies, evaluation of radiographic studies, oxygen monitoring, and constant monitoring and speaking to family at bedside Lab Data Labs: Lab Results 01/15/24 01/15/24 Range/Units 16:15 16:45 WBC 3.8 L (4.0-11.0) 10^3/uL RBC 4.40 L (4.70-6.10) 10^6/uL Hgb 12.5 L (14.0-18.0) g/dL Hct 39.5 L (42.0-54.0) % MCV 89.8 (80.0-94.0) fL MCH 28.4 (25.9-34.0) pg MCHC 31.6 (29.9-35.2) g/dL RDW 13.8 (11.0-15.0) % Plt Count 173 (150-450) 10^3/uL MPV 10.3 (9.5-13.5) fL Neut % (Auto) 52.4 (43.0-75.0) % Lymph % (Auto) 33.5 (20.5-60.0) % [place]ois % (Auto) 11.4 (1.7-12.0) % Eos % (Auto) 1.9 (0.9-7.0) % Baso % (Auto) 0.5 (0.2-2.0) % Neut # (Auto) 2.0 (1.4-6.5) 10^3/uL Lymph # (Auto) 1.3 (1.2-3.8) 10^3/uL [place] # (Auto) 0.4 (0.3-0.8) 10^3/uL Eos # (Auto) 0.1 (0.0-0.7) 10^3/uL Baso # (Auto) 0.0 (0.0-0.1) 10^3/uL Abs Immat Gran (auto) 0.01 (0.00-0.03) 10^3/uL Imm/Tot Granulo (auto) 0.3 (0.0-0.5) % PT 11.6 (9.0-11.6) sec INR 1.10 APTT 28.2 (22.3-36.2) sec Sodium 139 (136-145) mmol/L Potassium 3.6 (3.5-5.1) mmol/L Chloride 106 (98-107) mmol/L Carbon Dioxide 25.1 (21.0-32.0) mmol/L Anion Gap 11.5 BUN 22.0 H (7.0-18.0) mg/dL Creatinine 1.33 H (0.70-1.30) mg/dL Est GFR ( Amer) >60 (>=60) Est GFR (Non-Af Amer) 56 L (>=60) BUN/Creatinine Ratio 16.5 Glucose 142 H (74-106) mg/dL Calcium 8.9 (8.5-10.1) mg/dL Total Bilirubin 1.9 H (0.2-1.0) mg/dL AST 24 (15-37) U/L ALT 19 (16-63) U/L Alkaline Phosphatase 93 (46-116) U/L Troponin I High Sens 28.6 (4.0-76.1) pg/mL NT-Pro-B Natriuret Pep 929.0 H (<=900.0) pg/mL Total Protein 6.8 (6.4-8.2) g/dL Albumin 3.4 (3.4-5.0) g/dL Globulin 3.4 g/dL Albumin/Globulin Ratio 1.0 Adenovirus (PCR) Not detected (NOT DETECTE) C. pneumoniae DNA (PCR) Not detected (NOT DETECTE) Coronavirus Type OC43 Not detected (NOT DETECTE) Coronavirus Type HKU1 Not detected (NOT DETECTE) Coronavirus Type 229E Not detected (NOT DETECTE) Coronavirus Type NL63 Not detected (NOT DETECTE) Human Metapneumovir PCR Not detected (NOT DETECTE) M. pneumoniae (PCR) Not detected (NOT DETECTE) Parainfluenza PCR Not detected (NOT DETECTE) Parainfluenza 2 (PCR) Not detected (NOT DETECTE) Parainfluenza 3 (PCR) Not detected (NOT DETECTE) Parainfluenza 4 (PCR) Not detected (NOT DETECTE) RSV (RT-PCR) Not detected (NOT DETECTE) Entero/Rhino (PCR) Not detected (NOT DETECTE) SARS-CoV-2 (PCR) Not detected (NOT DETECTE) Bordetella pertussis (PCR) Not detected (NOT DETECTE) B parapertussis DNA PCR Not detected (NOT DETECTE) Influenza Type A (PCR) Not detected (NOT DETECTE) Influenza Type B (PCR) Not detected (NOT DETECTE) Discharge Plan Discharge Chief Complaint: Shortness of Breath/Dyspnea Clinical Impression: Hypoxia, Pneumonia Patient Disposition: [facility] Time of Disposition Decision: 19:51 Condition: Good Mode of Transportation: EMS
[2024-01-15] MEDS: PIPERACILLIN SODIUM/TAZOBACTAM 3.375 GM in 0.9 % SODIUM CHLORIDE 50 ML IV (19:08)
== END 2024-01-15 21:55 | disposition short-term general hospital (02) ==
PROVIDERS: Physician Assistant; Emergency Provider Emergency Medicine; PCP Nurse Practitioner
DX: J18.9 Pneumonia, unspecified organism (principal); R09.02 Hypoxemia; Z94.4 Liver transplant status; Z94.0 Kidney transplant status; Z79.899 Other long term (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; Z87.891 Personal history of nicotine dependence; Z87.01 Personal history of pneumonia (recurrent); Z20.822 Contact with and (suspected) exposure to COVID-19
CPT/HCPCS: 0202U; 36415; 71045; 80053; 83880; 84484; 85025; 85610; 85730; 87040; 87070; 93005; 94640; 96365; 99285; J2543

== ENCOUNTER 2024-02-05 07:24 | Outpatient (OUT) | payer MEDICARE, MEDICAID, SELFPAY ==
--- OUTSIDE RECORDS SUMMARY | 2024-02-05 07:34 | XMS_ITS | CCD ---
Author Name Unknown Address [id number] [place] [address] Organization [facility] Care Team Providers Care Mathematical Statistician Name Role Phone Zuly Bruno Unavailable Unavailable Primary Care Provider Unavailabl e CAREY ROB Referring Unavailable KASMANI, ROB Referring Unavailable KASMANI, ROB Referring Unavailable RIST, RENA Referring Unavailable TANA CAMPA Referring Unavailable RIST, RENA Referring Unavailable RIST, RENA Referring Unavailable RIST, RENA Referring Unavailable RIST, RENA Referring Unavailable PEPE CASE Attending Unavailable PEPE CASE Admitting Unavailable JAZLYN BRUNOA Referring Unavailable JAZLYN BRUNOA Primary Care Unavailable Aichholz [facility], Zuly Primary Care Provider [phone] [facility] Shirin [facility],PharmD, Angel Unavailable Unavailab makayla Leigh [facility],PharmD, Te Unavailable Unavai lable Aicjose e [facility] Primary Care Provider MIGUEL CARDONA Attending Unavailable MISC, DR BURCH Admitting Unavailable MISC, DR BURCH Consulting Unavailable AICHHOLOmer, ROB ZULY Primary Care Unavailable MISC, DR BURCH Attending Unavailable MISC, DR BURCH Admitting Unavailable MISC, DR BURCH Consulting Unavailable AICHHOLZ, SLASHER MACHINE OPERATOR ZULY Primary Care Unavailable MISC, DR BURCH Attending Unavailable ARCELIA PIZARRO Consulting Unavailable KE BURNHAM Attending Unavailable KE BURNHAM Admitting Unavailable DR MÓNICA JIMENEZ Consulting Unavailable AICHHOLZ, SLASHER MACHINE OPERATOR ZULY Primary Care Unavailable NAUN ., KE Consulting Unavailable MISC, DR DOCTOR Consulting Unavailable MISC, DR DOCTOR Attending [facility]available [facility] Primary Care Unavailable MISC, DR DOCTOR Admitting Unavailable MISC, DR DOCTOR Consulting Unavailable MISC, DR DOCTOR Attending Unavailable [facility] Primary Care Unavailable MISC, DR DOCTOR Admitting Unavailable MISC, DR DOCTOR Consulting Unavailable AICHOL, [facility] Primary Care Unavailable MISC, DOCTOR Admitting Unavailable MISC, DR DOCTOR Attending Unavailable MELINDA, DR GEORGE Munoz Consulting Unavailable MELINDA, DR GEORGE Munoz Attending Unavailable AICHOL, [facility] Primary Care Unavailable MELINDA, DR GEORGE Munoz Admitting Unavailable NAUN ., KE Consulting Unavailable MIRANDA, LYNDSAY Consulting Unavailable MELINDA, DR GEORGE Munoz Consulting Unavailable NAUN ., KE Attending Unavailable NAUN ., KE Admitting Unavailable AICHOL, [facility] Primary Care Unavailable NAUN ., KE Consulting Unavailable GIAN HERRING Unavailable [facility], [facility] ZULY Consulting Unavailable [facility], [facility] ZULY Attending Unavailable [facility], [facility] ZULY Admitting Unavailable [facility], [facility] Primary Care Unavailable MISC, DR DOCTOR Consulting Unavailable MISC, DR BURCH Admitting Unavailable MISC, DOCTOR Attending [facility] Primary Care Unavailable MISC, DR Consulting Unavailable MISC, DR DOCTOR Attending Unavailable MISC, DR DOCTOR Admitting Unavailable AICHOL, [facility] Primary Care Unavailable MISC, DOCTOR Admitting Unavailable MISC, DR BURCH Consulting Unavailable MISC, DR DOCTOR Attending Unavailable [facility], [facility] Primary Care Unavailable MISC, DR DOCTOR Admitting Unavailable MISC, DR DOCTOR Consulting Unavailable [facility], [facility] Primary Care Unavailable MISC, DR DOCTOR Attending Unavailable MISC, DR DOCTOR Admitting Unavailable MISC, DR DOCTOR Consulting Unavailable AICHOL, [facility] Primary Care Unavailable MISC, DR DOCTOR Attending Unavailable [facility], [facility] ZULY Consulting Unavailable [facility], [facility] ZULY Attending Unavailable [facility], [facility] ZULY Admitting Unavailable [facility], [facility] Primary Care Unavailable DR MÓNICA JIMENEZ Consulting Unavailable [facility] Primary Care Provider Evan White DO Unavailable [phone] Aichholz SLASHER MACHINE OPERATOR, Zuly Primary Care Provider Evan White DO Unavailable Momo Verdugo MD Primary Care Provider AICHHOLZ, ZULY Attending Unavailable AICHHOLZ, ZULY Attending Unavailable YEISON, STEVE S Admitting Unavailable CONSULT, INFECTIOUS DISEASE Consulting Unav ailable AICHHOLZ, ZULY Primary Care Unavailable NIKI, KEVIN Attending Unavailable YEISON, STEVE S Referring Unavailable SYSTEM, PROVIDER NOT IN Referring Unavaila ble CONSULT, HEPATOBILIARY Consulting Unavailab le AICHHOLZ, ZULY Primary Care Unavailable NIKI, KEVIN Admitting Unavailable KELVIN PACHECO Attending Unavailable AICHHOLZ, ZULY Primary Care Unavailable AICHHOLZ, ZULY Primary Care Unavailable EVAN WHITE Referring Unavailabl e HAKEEM ALAMO Attending Unavailable REBECA OLSEN Attending Unavailable SELF, SELF Referring Unavailable AICHHOLZ, ZULY Primary Care Unavailable YEISON, STEVE S Attending Unavailable AICHHOLZ, ZULY Primary Care Unavailable YEISON, STEEV S Referring Unavailable AICHHOLZ, ZULY Primary Care Unavailable AICHHOLZ, ZULY Primary Care Unavailable AICHHOLZ, ZULY Primary Care Unavailable Allergies Allergy Classification Reported Allergen(s) Allergy Type Date of Onset Reaction(s) Facility (1 source) Shellfish; 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: [SHELLFISH DERIVED] Propensity to adverse reactions (disorder) 8 [facility] Repository (20 sources) Shellfish-Derive d Products Propensity to adverse reactions to drug 9 [facility] (1 source) Shellfish Drug allergy (disorder) The [facility] Repository Medications Current Medications Medication Drug [...] 1 capsule by mouth once daily b ygzmmqb-[id number]-pfchm acid (NEPHROCAPS) 1 MG capsule Take 1 capsule by mouth daily 0 Active aspirin 81 mg chewable tablet (20 sources) Platelet Aggregation Inhibitor, Nonsteroidal Anti-inflammatory Drug Start: 10-08-2020 End: 01-23-2024 aspirin 81 MG Chew Tab chewable tablet Chew 1 tablet daily. Last refill from our office. Medication can be purchased over the counter going forward. 30 tablet 10/08/2020 Active cholecalciferol 1000 unt oral tablet (1 [...] days. 28 tablet 0 06/12/2022 06/26/2022 Active Drug or medicament (substance) (1 source) Start: 09-10-2023 folic acid 1 mg oral tablet (6 sources) take 1 tablet by mouth once daily folic acid (FOLVITE) 1 MG tablet Take 1 mg by mouth daily 0 Active gabapentin 400 mg oral capsule (20 sources) Anti-epileptic Agent Start: 06-07-2023 End: 03-24-2024 take 1 capsule by mouth at bedtime Gabapentin 400 MG capsule Take 1 capsule by mouth at bedtime. 06/07/2023 Active Start: 05-15-2022 End: 05-20-2022 take [...] ankle pain. 0 06/12/2020 06/12/2023 Discontinued lactulose 30975 mg powder for oral solution (19 sources) [...] 01/16/2023 Discontinued take 2 tablets by mo [facility] in the morning magnesium oxide (Mag-Ox) 400 MG tablet Take 2 tablets by mouth in the morning. 0 Active take 1 tablet by [facility] once daily magnesium oxide (MAG-OX) 400 MG tablet Take 400 mg by mouth daily 0 Active midodrine hydrochloride 10 mg oral tablet (20 sources) alpha-Adrenergic Agonist Start: 06-09-2018 Midod rine HCl 10 MG Tab tablet Take 1 tablet by mouth as needed. 0 06/09/2018 Active take 2 tablets by mo [facility] three times daily as needed midodrine (PROAMATINE) 5 MG tablet Take 10 mg by mouth 3 times daily Prn with dialysis 0 Active take 2 tablets by mo [facility] once daily as needed midodrine 5 MG Tab tablet Take 10 mg by mouth daily as needed. Iv durning Dialysis Active Multiple Vitamins-Minerals (THERAPEUTIC MULTIVITAMIN-MINERALS) tablet (6 sources) take 1 tablet by mouth once daily Multiple Vitamins-Minerals (THERAPEUTIC MULTIVITAMIN-MINERALS) tablet Take 1 tablet by mouth daily 0 Active oxyCODONE hydrochloride 5 mg oral tablet (19 sources) Opioid Agonist Start: 2023 End: 2023 take 1 tablet by mouth every six hours as needed for pain oxyCODONE 5 MG tablet Indications: End stage renal disease Take 1 tablet by mouth every 6 hours as needed for Severe Pain for up to 3 days. 12 tablet 01/23/2024 01/26/2024 Active Start: 01-22-2024 End: 01-23-2024 take 1 tablet by mouth every four hours as needed 5 mg, Oral, EVERY 4 HOURS NEEDED, Starting on 01/22/24 at 1322, Until 01/23/24 at 1752, Moderate Pain, Severe Pain Start: 05-20-2022 End: 06-12-2023 oxyCODONE 5 MG tablet Indica tions: Hydronephrosis due to obstruction of ureteral orifice Take 1 tablet by mouth every 4 hours as needed for Severe Pain or Moderate Pain for up to 5 doses. 5 tablet 0 05/20/2022 06/12/2023 Discontinued Start: 05-16-2022 End: 05-20-2022 take 1 tablet by mouth every four hours as needed oxyCODONE HCl (ROXICODONE) tablet 10 mg rifAXIMin 550 mg oral tablet (12 sources) [...] 0 07/17/2018 Active take 2 tablets by [facility] three times daily at mealtime sevelamer (RENVELA) 800 MG tablet Take 2 tablets by mouth 3 times daily (with meals) 0 Active tamsulosin hydrochloride 0.4 mg oral capsule (20 sources) alpha-Adrenergic Ibrahima Start: 11-03-2023 End: 01-23-2024 take 1 capsule by mouth once daily Tamsulosin HCl 0.4 MG capsule Take 1 capsule by mouth daily. 90 capsule 3 11/03/2023 Active Start: 11-03-2023 End: 02-01-2024 take 1 capsule [...] release product. Do not chew or crush torsemide 20 mg oral tablet (3 sources) Loop Diuretic Start: 01-22-2024 End: 01-23-2024 take 1 tablet by mouth once daily Torsemide 20 MG tablet Take 1 tablet by mouth daily. 90 tablet 01/22/2024 Active Start: 01-20-2024 End: 01-21-2024 take 20 mg by mouth twice daily before mealtime 20 mg, Oral, 2 TIMES DAILY BEFORE MEALS, First dose on Thu01/20/24 at 1600, Until Discontinued, Max: 200 mg/day vitamin d 1000 unt oral tablet (5 sources) take 1 tablet by magy th once daily vitamin D (CHOLECALCIFEROL) 1000 UNIT TABS tablet Take 1,000 Units by mouth daily 0 Active Completed/Discontinued Medications Medication Drug Class(es) Dates Sig (Normalized) Sig (Original) acetaminophen 325 mg oral tablet (7 sources) Start: 01-16-2024 End: 01-23-2024 take 1 tablet by mouth every six hours as needed 650 mg, Oral, EVERY 6 HOURS NEEDED, Starting on 01/16/24 at 0202, Until 01/23/24 at 1752, Mild Pain, Moderate Pain, Severe Pain, Oral temp > 101.5 F, 1st line for Pain, Maximum dose of acetaminophen is 4000 mg from all sources in 24 hours. Start: 09-04-2023 End: 09-11-2023 take 650 mg [...] tablet (20 sources) Xanthine Oxidase Inhibitor Start: 01-16-2024 End: 01-23-2024 take 200 mg by mouth once daily 200 mg, Oral, DAILY, First dose on 01/16/24 at 0900, Until Discontinued Start: 08-29-2023 End: 09-11-2023 take 200 mg by mouth once daily 200 mg, Oral, DAILY, F irst dose on 08/29/23 at 0900, Until Discontinued Start: 01-15-2023 End: 01-23-2024 take 2 tablets by mouth once daily Allopurinol 100 MG tablet Indications: Abnormal blood chemistry Take 2 tablets by mouth daily. 180 tablet 3 01/15/2023 01/23/2024 Discontinued Start: 05-17-2022 End: 05-20-2022 allopurinol (ZYLOPRIM) table t 100 mg Start: 05-16-2022 End: 05-16-2022 take 200 mg by mouth once daily 200 mg, Oral, DAILY, F irst dose on Thu05/16/22 at 0900, Until Discontinued Start: 12-30-2021 take 2 tablets by mo ut once daily allopurinol 100 MG tablet Indications: Abnormal blood chemistry take 2 tablets by mouth once daily 180 tablet 3 12/30/2021 Active Start: 01-28-2021 take 2 tablets by mo uth once daily allopurinol 100 MG tablet Indications: Abnormal blood chemistry Take 2 tablets by mouth daily. 180 tablet 3 01/28/2021 Active aluminum hydroxide 40 mg/ml / magnesium hydroxide 40 mg/ml / simethicone 4 mg/ml oral suspension (1 source) Start: 01-16-2024 End: 01-23-2024 take 30 mL by mouth every six hours as needed 30 mL, Oral, EVERY 6 HOURS NEEDED, Starting on 01/16/24 at 0202, Until 01/23/24 at 1752, Indigestion, Per 5 mL is equivalent to: (Alum-Mag Hydroxide 200-225 mg and Simethicone 20 mg) and (Alum-Mag Hydroxide 200-200 mg and Simethicone 20 mg) amLODIPine 5 mg oral tablet (20 sources) Dihydropyridine Calcium Channel Ibrahima Start: 01-16-2024 End: 01-23-2024 take 5 mg by mouth once daily 5 mg, Oral, DAILY, First dose on 01/16/24 at 0900, Until Discontinued, On hold since Thu01/18/2024 at 1009 until manually unheld Start: 12-13-2022 End: 09-02-2023 take 1 tablet by mouth in the morning amLODIPine (Norvasc) 5 MG tablet Take 1 tablet by mouth in the morning. 0 12/13/2022 Active Start: 12-13-2022 End: 09-11-2023 take 5 mg by mouth every twenty-four hours 5 mg, Oral, EVERY 24 HOURS, First dose on Thu09/03/23 at 2100, Until Discontinued Start: 05-16-2022 End: 05-20-2022 take 5 mg by mouth once daily 5 mg, Oral, DAILY, First dose on Thu05/16/22 at 0900, Until Discontinued atorvastatin 20 mg [...] 500 mL, Intravenous, ONCE, 1 dose, On Thu09/05/23 at 0800 Fluid Bolus Start: 05-18-2022 End: [...] 2 g in dextrose 50mL premix IVPB CUSTOM MEDICATION (5 sources) Start: 09-10-2023 End: 01-19-2024 CUSTOM MEDICATION Labs to be obtained: 1- Tacrolimus level, trough - collect twice weekly until 09/24/23, then weekly until 10/08/23, them once every two weeks there after. 2- Itraconazole level - obtain once between 09/14-09/18. 3- Chem 6 - Obtain weekly while on itraconazole Fax results to: Dr. White - [phone] Transplant Neph - [phone] Each 09/10/2023 01/19/2024 Discontinued (Medication Reconciliation (suppress cancel msg)) Start: 09-10-2023 CUSTOM MEDICAT ION Labs to be obtained: 1- Tacrolimus level, trough - collect twice weekly until 09/24/23, then weekly until 10/08/23, them once every two weeks there after. 2- Itraconazole level - obtain once between 09/14-09/18. 3- Chem 6 - Obtain weekly while on itraconazole Fax results to: Dr. Cindy Moran [phone] Transplant Ne[facility] - [phone] Each 0 09/10/2023 Active Diatrizoate (1 source) Start: 05-20-2022 End: 05-20-2022 diatrizoate Meglumine (Cystografin) 30 % UR solution 80 mL diphenhydrAMINE hydrochloride 25 mg oral tablet (1 source) Histamine-1 Receptor Antagonist Start: 09-03-2023 End: 09-11-2023 take 25 mg by mouth every twenty-four hours 25 mg, Oral, EVERY 24 HOURS, First dose on [facility] 09/03/23 at 1600, Until Discontinued Give 30 [...] 05/23/2020 05/20/2022 Discontinued (Stop Taking at Discharge) 0.4 ml enoxaparin sodium 100 mg/ml prefilled syringe (2 sources) Low Molecular Weight Heparin Start: 01-16-2024 End: 01-23-2024 40 mg, Subcutaneous, EVERY 24 HOURS, 6 doses, First dose (after last reorder) on Thu01/22/24 at 1430, Last dose on Thu01/27/24 at 1430, Indications: DVT/PE prophylaxis famotidine 20 mg oral tablet (20 sources) Histamine-2 Receptor Antagonist Start: 01-16-2024 End: 01-23-2024 take 20 mg by mouth twice daily 20 mg, Oral, 2 TIMES DAILY, First dose on Thu01/16/24 at 0900, Until Discontinued Start: 08-28-2023 End: 09-09-2023 take 20 mg [...] 0 05/20/2022 Discontinued (Stop Taking at Discharge) furosemide 40 mg oral tablet (6 sources) Loop Diuretic Start: 01-20-2024 End: 01-20-2024 take 40 mg by mouth once daily 40 mg, Oral, DAILY, First dose on Thu01/20/24 at 0900, Until Discontinued Start: 01-19-2024 End: 01-19-2024 40 mg, Intravenous, 2 TIMES DAILY BEFORE MEALS, 2 doses, First dose (after last reorder) on Thu01/19/24 at 0900, Last dose on Thu01/19/24 at 1600, Administer by slow IV push at a rate not exceeding 40mg/min Start: 01-18-2024 End: 01-18-2024 40 mg, Intravenous, 2 TIMES DAILY BEFORE MEALS, 2 doses, First dose (after last reorder) on Thu01/18/24 at 1015, Last dose on Thu01/18/24 at 1600, Administer by slow IV push at a rate not exceeding 40mg/min Start: 01-17-2024 End: 01-17-2024 40 mg, Intravenous, ONCE, 1 dose, On Thu01/17/24 at 1615, Administer by slow IV push at a rate not exceeding 40mg/min Start: 01-16-2024 End: 01-17-2024 20 mg, Intravenous, ONCE, 1 dose, On Thu01/17/24 at 0945, Administer by slow IV push at a rate not exceeding 40mg/min 250 ml glucose 50 mg/ml injection (1 source) Start: 09-03-2023 End: 09-09-2023 50 mL, Intravenous, NEEDED, Starting on Marta 09/03/23 at 1519, Until Thu09/09/23 at 1457, See admin instructions Use sufficient volume to flush entire line BEFORE and AFTER amphotericin B liposomal administration. guaiFENesin 20 mg/ml oral solution (3 sources) Start: 01-16-2024 End: 01-23-2024 take 400 mg by mouth every six hours as needed 400 mg, Oral, EVERY 6 HOURS NEEDED, Starting on 01/16/24 at 0202, Until 01/23/24 at 1752, Cough, Congestion Start: 08-29-2023 End: 09-11-2023 take 200 mg [...] End: 05-20-2022 heparin injection 5,000 Unit s 1 ml HYDROmorphone hydrochloride 1 mg/ml cartridge (1 source) Opioid Agonist Start: 01-22-2024 End: 01-23-2024 take 0.2 mg intravenously every three hours as needed 0.2 mg, Intravenous, EVERY 3 HOURS NEEDED, Starting on Thu01/22/24 at 1323, Until 01/23/24 at 0821, Severe Pain iodixanol (VISIPAQUE) injection 320 mg/mL for [facility] (1 source) Start: 05-17-2022 End: 05-20-2022 iodixanol (VISIPAQUE) injection 320 mg/mL for [facility] itraconazole 10 mg/ml oral solution (12 sources) Azole Antifungal Start: 01-16-2024 End: 01-23-2024 take 100 mg by mouth every twelve hours 100 mg, Oral, EVERY 12 HOURS, First dose on 01/16/24 at 0900, Until Discontinued, Administer on an empty stomach. Hold tube feeds for 1 hour before and 2 hours after administration. Start: 01-07-2024 take 100 mg by mouth every twelve hours Itraconazole 10 MG/ML Solution Take 10 mL by mouth every 12 hours. 1200 mL 3 01/07/2024 Active Start: 09-10-2023 End: 10-08-2023 take 20 mL [...] Marta 09/03/23 at 1700, Last dose on Thu09/06/23 at [...] mouth twice a day 60 tablet 11 01/06/2022 Active Start: 12-24-2020 End: 12-19-2021 take 1 tablet by mouth twice daily losartan 50 MG tablet Take 1 tablet by mouth 2 times daily. 60 tablet 12/24/2020 12/19/2021 Active 50 ml magnesium sulfate 80 mg/ml injection (8 sources) Start: 01-21-2024 End: 01-21-2024 4 g, Intravenous, Administer over 4 Hours, ONCE, 1 dose, On Marta 01/21/24 at 0815 Start: 01-18-2024 End: 01-18-2024 4 g, Intravenous, Administer over 4 Hours, ONCE, 1 dose, On 01/18/24 at 0730 Start: 09-09-2023 End: 09-09-2023 4 g, Intravenous, [...] 3 mg oral tablet (20 sources) Start: 01-19-2024 End: 01-23-2024 take 6 mg by mouth once daily at bedtime as needed 6 mg, Oral, DAILY AT BEDTIME NEEDED, Starting on Thu01/19/24 at 0016, Until 01/23/24 at 1752, Insomnia Start: 01-16-2024 End: 01-19-2024 take 3 mg by mouth once daily at bedtime as needed 3 mg, Oral, DAILY AT BEDTIME NEEDED, Starting on Thu01/16/24 at 0141, Until Thu01/19/24 at 0016, Insomnia Start: 08-28-2023 End: 09-11-2023 take 6 mg [...] if alternate route or dose is needed. mycophenolic acid 360 mg delayed release oral tablet (20 sources) Antimetabolite Immunosuppressant Start: 01-16-2024 End: 01-23-2024 take 1 tablet by mouth twice daily 360 mg, Oral, 2 TIMES DAILY (Solid Organ Transplant), First dose on Thu01/16/24 at 0800, Until Discontinued, Give on an empty stomach. Swallow tablet whole; do not crush, split or chew. Contact pharmacy if alternate route or dose is needed. Start: 10-05-2023 take 1 tablet by magy th every twelve hours Mycophenolate sodium (MYFORTIC) 360 [...] crush, or chew. Start: 03-15-2021 End: 09-10-2023 ondansetron 4 mg disintegrating oral tablet (20 sources) Serotonin-3 Receptor Antagonist Start: 06-14-2020 End: 06-12-2023 ondansetron (Zofran ODT) 4 MG Tab Dispersible tablet Dissolve 1 tablet on tongue every 6 hours as needed for nausea or vomiting. 20 tablet 0 06/14/2020 06/12/2023 Discontinued take 1 tablet by magy every eight hours as needed ondansetron 4 MG tablet Take 1 tablet by mouth every 8 hours as needed for Nausea / Vomiting. Active ondansetron 4mg/2ml (ZOFRAN) injection 4 mg (1 source) Start: 05-15-2022 End: 05-20-2022 take 4 mg intravenously every six hours as needed ondansetron 4mg/2ml (ZOFRAN) injection 4 mg Ondansetron 4mg/2ml (ZOFRAN) injection 4 mg (1 source) Start: 01-16-2024 End: 01-23-2024 take 4 mg intravenously every six hours as needed Ondansetron 4mg/2ml (ZOFRAN) injection 4 mg polyethylene glycol 3350 [id number] mg powder for oral solution (20 sources) Osmotic Laxative Start: 01-16-2024 End: 01-23-2024 17 g, Oral, DAILY NEEDED, Starting on 01/16/24 at 0202, Until 01/23/24 at 1752, Constipation 1st Line Start: 08-28-2023 End: 09-11-2023 17 g, Oral, [...] phosphate ( K-PHOS NEUTRAL) tablet 1,000 mg prochlorperazine 5 mg/ml injectable solution (1 source) Phenothiazine Start: 01-17-2024 End: 01-23-2024 take 10 mg intravenously every six hours as needed 10 mg, Intravenous, EVERY 6 HOURS NEEDED, Starting on 01/17/24 at 1538, Until 01/23/24 at 1752, Nausea / Vomiting, Refractory Nausea Vomiting, For IV route: dilute dose with 10mL normal saline and give by slow IV push at a rate of 5mg/min. Maximum of 40mg/day. sennosides, chcf 8.6 mg oral tablet (1 source) Start: 05-16-2022 End: 05-20-2022 senna (SENOKOT) tablet 8.6 mg 1000 ml sodium chloride 9 mg/ml injection (7 sources) Start: 01-16-2024 End: 01-23-2024 Intravenous, at 20 mL/hr, NEEDED, Starting on 01/16/24 at 0202, Until 01/23/24 at 1752, Carrier Fluid - See Admin. Inst, 250mL [...] the intermittent or piggy back medication. Start: 09-04-2023 End: 09-11-2023 4 mL, Nebulization, NEEDE D, Starting on Thu09/04/23 at 0926, Until Thu09/11/23 at 1645, Other, c/f mucus plugging Start: 09-03-2023 End: 09-09-2023 take 500 mL intravenously every twenty-four hours 500 mL, Intravenous, EVERY 24 HOURS, First dose on Amrta 09/03/23 at 1930, Until Discontinued Give 500 mL [...] chloride 0.9% IV solu tion 250 mL sulfamethoxazole 800 mg / trimethoprim 160 mg oral tablet (13 sources) Dihydrofolate Reductase Inhibitor Antibacterial, Sulfonamide Antimicrobial Start: 09-23-2023 End: 09-22-2024 take 1 tablet by mouth three times weekly Sulfamethoxazole-trimethoprim 800-160 MG per tablet Indications: Need for prophylactic measure Take 1 tablet by mouth three times a week. 12 tablet 11 09/23/2023 01/19/2024 Discontinued (Medication Reconciliation (suppress cancel msg)) Start: 09-04-2023 End: 09-11-2023 take 1 tablet [...] DS) 800-160 MG per tablet 1 tablet Tacrolimus (20 sources) Calcineurin Inhibitor Immunosuppressant Start: 01-16-2024 End: 01-23-2024 0.2 mg, Oral, CUSTOM FREQUENCY (Once per day on Thursday), First dose on Thu01/16/24 at 0900, Until Discontinued, Caution check route of administration. For sublingual administration, place liquid under tongue and allow absorption. Start: 01-14-2024 take 1 dose by mouth once Tacr olimus 0.2 MG Pack Mix 1 packet (0.2 mg) and take by mouth every Thursday, , Thursday. 10 Each 5 01/14/2024 Active Start: 09-10-2023 End: 01-09-2024 Prograf 0.2 MG [...] needed. Start: 08-20-2022 take 1 capsule by [facility] every twelve hours Tacrolimus (PROGRAF) 0.5 [...] Active Start: 01-11-2021 take 1 capsule by [facility] twice daily tacrolimus (generic) 0.5 MG capsule Indications: Liver transplant recipient , -donor kidney transplant recipient Take 3 capsules by mouth 2 times daily. 180 capsule 5 01/11/2021 Active (2 sources) Start: 09-12-2023 End: 09-11-2023 0.25 [...] Date Documented Da te Episodic/Chronic Abdominal pain (3 sources) Generalized abdominal pain; 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: [Generalized abdominal pain] Onset: 3 11-03-2023 Episodic Alcohol-related disorders (20 sources) Alcoholic cirrhosis; 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: [Alcoholic cirrhosis of liver without ascites] Onset: 8 10-05-2018 Chronic Anxiety disorders (6 sources) Generalized anxiety disorder; 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: [Generalized anxiety disorder] Onset: 3 11-03-2023 Chronic Calculus of urinary tract (4 sources) Calculus of ureter; 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: [Kidney stone] Onset: 2 11-03-2023 Episodic Chronic kidney disease (20 sources) End stage renal failure on dialysis; 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: [End-stage renal disease] Onset: 8 06-22-2018 Chronic Complication of device; implant or graft (3 sources) Complication of dialysis; 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: [Unspecified complication of cardiac and vascular prosthetic device, implant and graft, initial encounter] Onset: 3 11-03-2023 Episodic Congestive heart failure; nonhypertensive (8 sources) Acute diastolic heart failure; 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: [Acute diastolic (congestive) heart failure] Onset: 4 01-20-2024 Chronic Coronary atherosclerosis and other heart disease (20 sources) Coronary arteriosclerosis; 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: [Atherosclerotic heart disease of [place] coronary artery without angina pectoris] Onset: 3 04-22-2020 Chronic Deficiency and other anemia (3 sources) Anemia; 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: [Anemia, unspecified] Onset: 3 11-03-2023 Episodic Diabetes mellitus without complication (3 sources) Hyperglycemia; 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: [Hyperglycemia, unspecified] Onset: 3 11-03-2023 Episodic Disorders of lipid metabolism (6 sources) Mixed hyperlipidemia; 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: [Hyperlipidemia, unspecified] Onset: 3 Chronic Esophageal disorders (3 sources) Gastroesophageal reflux disease; 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: [Gastro-esophageal reflux disease without esophagitis] Onset: 3 11-03-2023 Chronic Essential hypertension (20 sources) Benign essential hypertension; 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: [Essential (primary) hypertension] Onset: 2 04-22-2020 Chronic Gastrointestinal hemorrhage (3 sources) Gastrointestinal hemorrhage; 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: [Gastrointestinal hemorrhage, unspecified] [...] Chronic Hypertension with complications and secondary hypertension (2 sources) Renal hypertension; 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: [Hypertension secondary to other renal disorders] Onset: 3 08-28-2023 Chronic Immunity disorders (16 sources) Immunosuppression; 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: [Immunodeficiency, unspecified] Onset: 2 Chronic Other aftercare (3 sources) Transplant follow-up; 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: [Encounter for aftercare following other organ transplant] Chronic Other aftercare (2 sources) Encounter for aftercare following other organ transplant; 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: [[facility] OT ORGN TRANSPL] Onset: 3 Chronic Other aftercare (1 source) Follow-up status; 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: [Encounter for follow-up examination after completed treatment for conditions other than malignant neoplasm] Episodic Other aftercare (2 sources) Taking high risk medication; 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: [Other oysterman (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] Episodic Other and ill-defined heart disease (3 sources) Dysfunction of papillary muscle; 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: [Other ill-defined heart diseases] Onset: 3 11-03-2023 Chronic Other diseases of kidney and ureters (1 source) Other specified disorders of kidney and ureter; [...] Onset: 0 04-12-2020 Chronic Other liver diseases (3 sources) Liver transplant status; 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: [Liver transplant status] Onset: 3 Chronic Other lower respiratory disease (1 source) Hypoxia; 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: [Hypoxemia] 09-10-2023 Episodic Other lower respiratory disease (5 sources) Dyspnea; 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: [Shortness of breath] Onset: 4 01-06-2024 Episodic Other lower respiratory disease (1 source) Shortness of breath; 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: [Shortness of breath] Onset: 4 Episodic Other nervous system disorders (3 sources) Peripheral nerve disease ; 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: [Polyneuropathy, unspecified] Onset: 4 12-03-2023 Chronic Other nervous system disorders (4 sources) Tremor; 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: [Tremor, unspecified] Onset: 3 11-03-2023 Episodic Other nutritional; endocrine; and metabolic disorders (20 sources) Obese class I; 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: [Obesity, unspecified] Onset: 0 04-09-2020 Chronic Other nutritional; endocrine; and metabolic disorders (1 source) Obesity; 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: [Obesity, unspecified] Onset: 3 11-03-2023 Chronic Other nutritional; endocrine; and metabolic disorders (3 sources) Body mass index 30+ - obesity; 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: [Obesity, unspecified] Onset: 3 01-06-2024 Chronic Other screening for suspected conditions (not mental disorders or infectious disease) (2 sources) CT of chest abnormal; 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: [Abnormal findings on diagnostic imaging of other specified body structures] Onset: 3 09-02-2023 Chronic Other screening for suspected conditions (not mental disorders or infectious disease) (20 sources) Abnormal quantity of physiologic substance; 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: [Blood chemistry abnormal] Onset: 8 06-22-2018 Episodic Peripheral and visceral atherosclerosis (1 source) Atherosclerosis of aorta; 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: [Atherosclerosis of aorta] 01-06-2024 Chronic Pleurisy; pneumothorax; pulmonary collapse (5 sources) Pleural effusion; 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: [Pleural effusion, not elsewhere classified] Onset: 4 01-16-2024 Episodic Residual codes; unclassified (20 sources) Awaiting transplantation of liver; 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: [Awaiting organ transplant status] Onset: 9 04-12-2020 Chronic Residual codes; unclassified (4 sources) Obstructive sleep apnea syndrome; 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: [Obstructive sleep apnea (adult) (pediatric)] Onset: 3 11-21-2023 Chronic Residual codes; unclassified (3 sources) Bilateral lower limb edema; 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: [Localized edema] Onset: 4 01-06-2024 Episodic Residual codes; unclassified (2 sources) Insomnia; 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: [Insomnia, unspecified] Onset: 4 01-06-2024 Episodic Unclassified (17 sources) Awaiting transplantation of liver; 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: [Pre-transplant evaluation for liver transplant] Onset: 8 10-05-2018 Unclassified (1 source) CONTACT W/AND (SUSP) EXPOS COVID-19; 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: [CONTACT W/AND (SUSP) EXPOS COVID-19] Onset: 2 Unclassified (11 sources) New Patient Onset: 3 03-26-2023 Unclassified (11 sources) Access to Medication(s) Onset: 3 03-26-2023 Unclassified (11 sources) Safety: Avoid toxicity that would cause discontinuation Onset: 3 03-26-2023 Unclassified (11 sources) Identify and eliminate barriers to patient adherence Onset: 3 03-26-2023 Unclassified (11 sources) Ensure that patient is receiving therapeutic benefit Onset: 3 03-26-2023 Past or Other Problems Problem Classification Problem Date Documented Date Episodic/Chronic Acute and unspecified renal failure (20 sources) Acute injury of kidney; 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: [Acute kidney failure, unspecified] Onset: 05-15-2022 Episodic Complications of surgical procedures or medical care (4 sources) Malfunction of incontinent external stoma of urinary tract; 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: [MALFUNC INCONT EXT STOMA URIN TRACT] Onset: 06-18-2022 Episodic Deficiency and other anemia (1 source) Anemia, unspecified; 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: [ANEMIA UNSPECIFIED] Onset: 11-08-2022 Episodic Fever of unknown origin (9 sources) Fever; 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: [Fever, unspecified] Onset: 08-28-2023 Resolved: 09-10-2023 08-28-2023 Episodic Genitourinary symptoms and ill-defined conditions (7 sources) Retention of urine, unspecified; 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: [Hematuria, unspecified] Onset: 05-11-2022 Episodic Mycoses (13 sources) Histoplasmosis; 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: [Histoplasmosis, unspecified] Onset: 08-28-2023 09-10-2023 Episodic Nausea and vomiting (20 sources) Nausea and vomiting; 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: [Nausea with vomiting, unspecified] Onset: 05-10-2020 05-10-2020 Episodic Other aftercare (2 sources) Other [place] [facility] (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; 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: [OTH POOL FINISHER 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 THERAPY] Onset: 07-06-2022 Episodic Other aftercare (1 source) 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; 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: [POOL FINISHER CURRENT USE OF ASPIRIN] Onset: 06-20-2022 Episodic [...] URETRL CALCUL OBST] Onset: 05-19-2022 Episodic Other diseases of kidney and ureters (1 source) Other specified disorders of kidney and ureter; 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: [Other specified disorders of kidney and ureter] Onset: 08-28-2023 Episodic Other liver diseases (20 sources) Hepatic encephalopathy; 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: [Hepatic failure, unspecified without coma] Onset: 10-19-2018 10-19-2018 Episodic Other liver diseases (20 sources) Hepatic failure; 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: [Hepatic failure, unspecified without coma] Onset: 04-09-2020 04-09-2020 Episodic Other lower respiratory disease (1 source) Hypoxemia; 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: [Hypoxemia] Onset: 08-28-2023 Episodic Other lower respiratory disease (1 source) Hypoxemia; 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: [Hypoxemia] Onset: 08-28-2023 Episodic Residual codes; unclassified (1 source) Ill-defined and unknown cause of mortality; 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: [ILL-DEFINED UNKNOWN CAUSE MORTALITY] Onset: 06-10-2022 Episodic Residual codes; unclassified (3 sources) Other general symptoms and signs; 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: [Other general symptoms] Onset: 08-28-2023 08-25-2023 Episodic Respiratory failure; insufficiency; arrest (adult) (2 sources) Acute respiratory failure; 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: [Acute respiratory failure with hypoxia] Onset: 08-28-2023 09-02-2023 Episodic Respiratory failure; insufficiency; arrest (adult) (1 source) Respiratory failure; insufficiency; arrest (adult); 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: [Acute respiratory failure with hypoxia] Onset: 08-28-2023 Screening and history of mental health and substance abuse codes (1 source) Personal history of nicotine dependence; 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: [PERSONAL HISTORY OF NICOTINE DEPEND] Onset: 05-19-2022 Episodic Unclassified (1 source) Encounter for other preprocedural examination; 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: [Encounter for other preprocedural examination] Onset: 01-16-2024 Unclassified (1 source) Encounter for aftercare following other organ transplant; 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: [Encounter for aftercare following other organ transplant] Onset: 08-28-2023 Unclassified (1 source) Other [place] [facility] (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; 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: [Other [place] [facility] (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] Onset: 08-28-2023 Unclassified (1 source) Hypertension secondary to other renal disorders; 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: [Hypertension secondary to other renal disorders] Onset: 08-28-2023 Results Test Name Value Interpretation Reference Range Facility CBC,PLATELETSon 01-23-2024 Hematocrit (Bld) [Volume fraction] 37.0 % Low 39.6-48.8 [facility] Comment on above: Performed By: #### H EMOGC ####[facility] (DEFAULT)[address] [facility] [place] [address] Hemoglobin (Bld) [Mass/Vol] 12.0 g/dL Low 13.4-16.8 [facility] Comment on above: Performed By: #### H EMOGC ####[facility] (DEFAULT)[address] [facility] [place] [address] MCV (RBC) [Entitic vol] 88.1 fL Normal 79.0-94.5 [facility] Comment on above: Performed By: #### H EMOGC ####[facility] (DEFAULT)[address] [facility] [place] [address] Mean Cell Hgb 28.6 pg Normal 26.1-33.3 [facility] Comment on above: Performed By: #### H EMOGC ####[facility] (DEFAULT)[address] [facility] [place] [address] Mean Cell Hgb Conc 32.4 g/dL Normal 31.9-36.5 [facility] Comment on above: Performed By: #### H EMOGC ####[facility] (DEFAULT)[address] [facility] [place] [address] Platelet mean volume (Bld) [Entitic vol] 10.4 fL Normal 8.7-12.3 [facility] Comment on above: Performed By: #### H EMOGC ####[facility] (DEFAULT)[address] [facility] [place] [address] Platelets (Bld) [#/Vol] 170 10*3/uL Normal 146-337 [facility] Comment on above: Performed By: #### H EMOGC ####[facility] (DEFAULT)[address] [facility] [place] [address] RBC (Bld) [#/Vol] 4.20 10*6/uL Low 4.38-5.83 [facility] Comment on above: Performed By: #### H [facility] ####[facility] (DEFAULT)[address] [facility] [place] [address] RBC Distribution 14.2 % Normal 10.9-14.3 [facility] Comment on above: Performed By: #### H [facility] ####[facility] (DEFAULT)[address] [facility] [place] [address] WBC (Bld) [#/Vol] 3.70 10*3/uL Low 3.73-10.10 [facility] Comment on above: Performed By: #### H [facility] ####[facility] (DEFAULT)[address] [facility] [place] [address] Erythrocyte distribution width (RBC) [Ratio] 14.2 % 10.9 - 14.3 % [facility] Hematocrit (Bld) [Volume fraction] 37.0 % Low 39.6 - 48.8 % [facility] Hemoglobin (Bld) [Mass/Vol] 12.0 g/dL Low 13.4 - 16.8 g/dL [facility] Interpretation and review of laboratory results Abnormal [facility] MCH (RBC) [Entitic mass] 28.6 pg 26.1 - 33.3 pg [facility] MCHC (RBC) [Mass/Vol] 32.4 g/dL 31.9 - 36.5 g/dL [facility] MCV (RBC) [Entitic vol] 88.1 fL 79.0 - 94.5 fL [facility] Platelet mean volume (Bld) [Entitic vol] 10.4 fL 8.7 - 12.3 fL [facility] Platelets (Bld) [#/Vol] 170 10*3/uL 146 - 337 K/uL [facility] RBC (Bld) [#/Vol] 4.20 10*6/uL Low [facility] WBC (Bld) [#/Vol] 3.70 10*3/uL Low 3.73 - 10. 10 K/uL [facility] CHEM 7 (LYTES,BUN,CREA,GLUC) on 01-23-2024 Anion gap [Moles/Vol] 14 mmol/L Normal 7-17 [facility] Comment on above: Performed By: #### NATHANIEL RAMÍREZ, HFP ####[facility] (DEFAULT)[address] [facility] [place] [address] Chloride [Moles/Vol] 105 mmol/L Normal 98-108 [facility] Comment on above: Performed By: #### NATHANIEL RAMÍREZ, HFP ####[facility] (DEFAULT)[address] [facility] [place] [address] CO2 [Moles/Vol] 25 mmol/L Normal 21-31 [facility] Comment on above: Performed By: #### NATHANIEL RAMÍREZ, HFP ####[facility] (DEFAULT)[address] [facility] [place] [address] Creatinine [Mass/Vol] 1.32 mg/dL High 0.70-1.30 [facility] Comment on above: Performed By: #### NATHANIEL RAMÍREZ, HFP ####[facility] (DEFAULT)[address] [facility] [place] [address] GFR/1.73 sq M.predicted among non-blacks MDRD (S/P/Bld) [Vol rate/Area] 65 mL/min/{1.73_m2} Normal >=60 [facility] Comment on above: Result Comment: Repo rted eGFR is based on the CKD-EPI 2020 equation using creatinine, age, and sex. Performed By: #### NATHANIEL RAMÍREZ, HFP ####[facility] (DEFAULT)[address] [facility] [place] [address] Glucose [Mass/Vol] 94 mg/dL Normal 70-99 [facility] Comment on above: Performed By: #### NATHANIEL RAMÍREZ, HFP ####[facility] (DEFAULT)[address] [place] [address] Osmolality [Osmolality] 296 mosm/kg Normal 278-305 [facility] Comment on above: Performed By: #### NATHANIEL RAMÍREZ, HFP ####[facility] (DEFAULT)[address] [place] [address] Potassium [Moles/Vol] 3.8 mmol/L Normal 3.5-5.0 [facility] Comment on above: Performed By: #### NATHANIEL RAMÍREZ, HFP ####[facility] (DEFAULT)[address] [place] [address] Sodium [Moles/Vol] 140 mmol/L Normal 135-145 [facility] Comment on above: Performed By: #### NATHANIEL RAMÍREZ, HFP ####[facility] (DEFAULT)[address] [place] [address] Urea nitrogen [Mass/Vol] 23 mg/dL Normal 7-25 [facility] Comment on above: Performed By: #### NATHANIEL RAMÍREZ, HFP ####[facility] (DEFAULT)[address] [place] [address] Urea nitrogen/Creatinine [Mass ratio] 17 mg/mg Normal [facility] Comment on above: Performed By: #### NATHANIEL RAMÍREZ, HFP ####[facility] (DEFAULT)[address] [place] [address] Anion gap [Moles/Vol] 14 mmol/L 7 - 17 mmol/L [facility] Chloride [Moles/Vol] 105 mmol/L 98 - 10 8 mmol/L [facility] CO2 [Moles/Vol] 25 mmol/L 21 - 31 mmol/L [facility] Creatinine [Mass/Vol] 1.32 mg/dL High 0.70 - 1.30 mg/dL [facility] eGFR, CKD-EPI, Male 66 - PINF [facility] Comment on above: Reported eGFR is bas ed on the CKD-EPI 2020 equation using creatinine, age, and sex. Glucose [Mass/Vol] 94 mg/dL 70 - 99 mg/dL [facility] Osmolality Calc [Osmolality] 296 [facility] Potassium [Moles/Vol] 3.8 mmol/L 3.5 - 5.0 mmol/L [facility] Sodium [Moles/Vol] 140 mmol/L 135 - 145 mmol/L [facility] Urea nitrogen [Mass/Vol] 23 mg/dL 7 - 25 mg/dL [facility] Urea nitrogen/Creatinine [Mass ratio] 17 mg/mg [facility] GLUCOSE POCon 01-23-2024 Glucose [Mass/Vol] 88 mg/dL 70 - 99 mg/dL [facility] POC Sample Type CAPBL [facility] Test performed at ad dress of the patient encounter. [facility] Glucose [Mass/Vol] 191 mg/dL High 70 - 99 mg/dL [facility] Interpretation and review of laboratory results Abnormal [facility] POC Sample Type CAPBL [facility] Test performed at ad dress of the patient encounter. [facility] HEPATIC FUNCTION PANELon Albumin [Mass/Vol] 3.9 g/dL Normal 3.5-5.0 [facility] Comment on above: Performed By: #### NATHANIEL RAMÍREZ, HFP ####[facility] (DEFAULT)[address] [place] [address] ALP [Catalytic activity/Vol] 83 U/L Normal 32-126 [facility] Comment on above: Performed By: #### NATHANIEL RAMÍREZ, HFP ####[facility] (DEFAULT)[address] [place] [address] ALT [Catalytic activity/Vol] 9 U/L Low 10-52 [facility] Comment on above: Performed By: #### NATHANIEL RAMÍREZ, HFP ####[facility] (DEFAULT)[address] [place] [address] AST [Catalytic activity/Vol] 17 U/L Normal 10-39 [facility] Comment on above: Performed By: #### M TJ BLOOM7, HFP ####[facility] (DEFAULT)[address] [place] [address] Bilirubin [Mass/Vol] 1.6 mg/dL High <1.5 [facility] Comment on above: Performed By: #### Rod BLOOM CHM7, HFP ####[facility] (DEFAULT)[address] [place] [address] Bilirubin.indirect [Mass/Vol] 0.4 mg/dL High <0.3 [facility] Comment on above: Performed By: #### TJ RAMÍREZ7, HFP ####[facility] (DEFAULT)[address] [place] [address] Protein [Mass/Vol] 6.6 g/dL Normal 6.4-8.3 [facility] Comment on above: Performed By: #### NATHANIEL RAMÍREZ, HFP ####[facility] (DEFAULT)[address] [place] [address] Albumin [Mass/Vol] 3.9 g/dL 3.5 - 5.0 g/dL [facility] ALP [Catalytic activity/Vol] 83 U/L 32 - 126 U/L [facility] ALT [Catalytic activity/Vol] 9 U/L Low 10 - 52 U/L [facility] AST [Catalytic activity/Vol] 17 U/L 10 - 39 U/L [facility] Bilirubin [Mass/Vol] 1.6 mg/dL High NINF - 1.5 mg/dL [facility] Bilirubin.direct [Mass/Vol] 0.4 mg/dL High NINF - 0.3 mg/dL [facility] Protein [Mass/Vol] 6.6 g/dL 6.4 - 8.3 g/dL [facility] ITRACONAZOLE LEVELon 02-24-2 024 Hydroxyitraconazole [Mass/Vol] 7.6 mcg/mL [facility] Comment on above: REFERENCE VALUE No therapeutic range established; activity and serum concentration are similar to parent drug. ADDITIONAL INFORMATION This test was developed and its performance characteristics determined by [facility] in a manner consistent with CLIA requirements. This test has not been cleared or approved by the U.S. Food and Drug Administration. Test Performed by: [facility] [address] [place] [address] Mold Preparer: Rosendo Bose M.D. Ph.D.; CLIA# [id number] Itraconazole [Mass/Vol] 6.0 mcg/mL [facility] Comment on above: REFERENCE VALUE >0.5 (localized infection), >1.0 (systemic infection) [facility] MAGNESIUMon 01-23-2024 Magnesium [Mass/Vol] 1.8 mg/dL Normal 1.6-2.6 [facility] Comment on above: Performed By: #### M MERLE, [facility], [facility] ####[facility] (DEFAULT)[address] [place] [address] Interpretation and review of laboratory results Normal [facility] Magnesium [Mass/Vol] 1.8 mg/dL 1.6 - 2 .6 mg/dL [facility] No Panel Informationon 01-23 Interpretation and review of laboratory results Abnormal [facility] TACROLIMUS LEVEL, TROUGH (DC E DRUG LEVEL)on 01-23-2024 Interpretation and review of laboratory results Normal [facility] Tacrolimus (Bld) [Mass/Vol] 7.0 ng/mL Bone Marrow Transplant: 4.0-12.0, Therapeutic: 5.0-15.0 [facility] Method performed is a chemiluminescent microparticle immunoasssay on the [employer] i2000. The range is based on experience at [facility] and users should be aware that target concentrations vary widely depending on concomitant therapy, time post-transplant, and desired degree of immunosuppression. [facility] Tacrolimus, Trough 7.0 ng/mL Normal Bone [place] ow Transplant: 4.0-12.0, Therapeutic: 5.0-15.0 [facility] Comment on above: Order Comment: Pleas e draw at specified interval PRIOR to dose. Do not hold dose to wait for level. Specimens batched twice per day, (M-F) and once per day weekendsMethod performed is a chemiluminescent microparticle immunoasssay on the [employer] i2000.The range is based on experience at [facility] and users should be aware that target concentrations vary widely depending on concomitant therapy, time post-transplant, and desired degree of immunosuppression. Performed By: #### T ACRO ####[facility] (DEFAULT)[address] [place] [address] CARDIAC RHYTHM (SCANNED)on 0 01-22-2024 [facility] CBC,PLATELETSon 01-22-2024 Hematocrit (Bld) [Volume fraction] 41.5 % Normal 39.6-48.8 [facility] Comment on above: Performed By: #### H [facility] ####[facility] (DEFAULT)[address] [place] [address] Hemoglobin (Bld) [Mass/Vol] 13.3 g/dL Low 13.4-16.8 [facility] Comment on above: Performed By: #### H [facility] ####[facility] (DEFAULT)[address] [place] [address] MCV (RBC) [Entitic vol] 86.8 fL Normal 79.0-94.5 [facility] Comment on above: Performed By: #### H EMOGC ####[facility] (DEFAULT)[address] [place] [address] Mean Cell Hgb 27.8 pg Normal 26.1-33.3 [facility] Comment on above: Performed By: #### H EMOGC ####[facility] (DEFAULT)[address] [place] [address] Mean Cell Hgb Conc 32.0 g/dL Normal 31.9-36.5 [facility] Comment on above: Performed By: #### H EMOGC ####[facility] (DEFAULT)[address] [facility] [place] [address] Platelet mean volume (Bld) [Entitic vol] 10.5 fL Normal 8.7-12.3 [facility] Comment on above: Performed By: #### H EMOGC ####[facility] (DEFAULT)[address] [facility] [place] [address] Platelets (Bld) [#/Vol] 186 10*3/uL Normal 146-337 [facility] Comment on above: Performed By: #### H EMOGC ####[facility] (DEFAULT)[address] [place] [address] RBC (Bld) [#/Vol] 4.78 10*6/uL Normal 4.38-5.83 [facility] Comment on above: Performed By: #### H EMOGC ####[facility] (DEFAULT)[address] [facility] [place] [address] RBC Distribution 14.1 % Normal 10.9-14.3 [facility] Comment on above: Performed By: #### H EMOGC ####[facility] (DEFAULT)[address] [place] [address] WBC (Bld) [#/Vol] 3.74 10*3/uL Normal 3.73-10.10 [facility] Comment on above: Performed By: #### H EMOGC ####[facility] (DEFAULT)[address] [place] [address] Erythrocyte distribution width (RBC) [Ratio] 14.1 % 10.9 - 14.3 % [facility] Hematocrit (Bld) [Volume fraction] 41.5 % 39.6 - 48.8 % [facility] Hemoglobin (Bld) [Mass/Vol] 13.3 g/dL Low 13.4 - 16.8 g/dL [facility] Interpretation and review of laboratory results Abnormal [facility] MCH (RBC) [Entitic mass] 27.8 pg 26.1 - 33.3 pg [facility] MCHC (RBC) [Mass/Vol] 32.0 g/dL 31.9 - 36.5 g/dL [facility] MCV (RBC) [Entitic vol] 86.8 fL 79.0 - 94.5 fL [facility] Platelet mean volume (Bld) [Entitic vol] 10.5 fL 8.7 - 12.3 fL [facility] Platelets (Bld) [#/Vol] 186 10*3/uL 146 - 337 K/uL [facility] RBC (Bld) [#/Vol] 4.78 10*6/uL [facility] WBC (Bld) [#/Vol] 3.74 10*3/uL 3.73 - 10. 10 K/uL [facility] CHEM 7 (LYTES,BUN,CREA,GLUC) on 01-22-2024 Anion gap [Moles/Vol] 13 mmol/L Normal 7-17 [facility] Comment on above: Performed By: #### NATHANIEL RAMÍREZ ####[facility] (DEFAULT)[address] [place] [address] Chloride [Moles/Vol] 109 mmol/L High 98-108 [facility] Comment on above: Performed By: #### NATHANIEL RAMÍREZ ####[facility] (DEFAULT)[address] [place] [address] CO2 [Moles/Vol] 23 mmol/L Normal 21-31 [facility] Comment on above: Performed By: #### NATHANIEL RAMÍREZ ####[facility] (DEFAULT)[address] [place] [address] Creatinine [Mass/Vol] 1.10 mg/dL Normal 0.70-1.30 [facility] Comment on above: Performed By: #### TJ RAMÍREZ7 ####[facility] (DEFAULT)[address] [facility] [place] [address] GFR/1.73 sq M.predicted among non-blacks MDRD (S/P/Bld) [Vol rate/Area] 81 mL/min/{1.73_m2} Normal >=60 [facility] Comment on above: Result Comment: Repo rted eGFR is based on the CKD-EPI 2020 equation using creatinine, age, and sex. Performed By: #### NATHANIEL RAMÍREZ ####[facility] (DEFAULT)[address] [facility] [place] [address] Glucose [Mass/Vol] 84 mg/dL Normal 70-99 [facility] Comment on above: Performed By: #### NATHANIEL RAMÍREZ ####[facility] (DEFAULT)[address] [facility] [place] [address] Osmolality [Osmolality] 295 mosm/kg Normal 278-305 [facility] Comment on above: Performed By: #### NATHANIEL RAMÍREZ ####[facility] (DEFAULT)[address] [facility] [place] [place] [address] Potassium [Moles/Vol] 4.0 mmol/L Normal 3.5-5.0 [facility] Comment on above: Performed By: #### NATHANIEL RAMÍREZ ####[facility] (DEFAULT)[address] [facility] [place] [place] [address] Sodium [Moles/Vol] 141 mmol/L Normal 135-145 [facility] Comment on above: Performed By: #### M MERLE CHM7 ####[facility] (DEFAULT)[address] [facility] [place] [address] Urea nitrogen [Mass/Vol] 16 mg/dL Normal 7-25 [facility] Comment on above: Performed By: #### M MERLE CHM7 ####[facility] (DEFAULT)[address] [facility] [place] [address] Urea nitrogen/Creatinine [Mass ratio] 15 mg/mg Normal [facility] Comment on above: Performed By: #### M MERLE CHM7 ####[facility] (DEFAULT)[address] [place] [address] Anion gap [Moles/Vol] 13 mmol/L 7 - 17 mmol/L [facility] Chloride [Moles/Vol] 109 mmol/L High 98 - 10 8 mmol/L [facility] CO2 [Moles/Vol] 23 mmol/L 21 - 31 mmol/L [facility] Creatinine [Mass/Vol] 1.10 mg/dL 0.70 - 1.30 mg/dL [facility] eGFR, CKD-EPI, Male 81 - PINF [facility] Comment on above: Reported eGFR is bas ed on the CKD-EPI 2020 equation using creatinine, age, and sex. Glucose [Mass/Vol] 84 mg/dL 70 - 99 mg/dL [facility] Interpretation and review of laboratory results Abnormal [facility] Osmolality Calc [Osmolality] 295 [facility] Potassium [Moles/Vol] 4.0 mmol/L 3.5 - 5.0 mmol/L [facility] Sodium [Moles/Vol] 141 mmol/L 135 - 145 mmol/L [facility] Urea nitrogen [Mass/Vol] 16 mg/dL 7 - 25 mg/dL [facility] Urea nitrogen/Creatinine [Mass ratio] 15 mg/mg [facility] MAGNESIUMon 01-22-2024 Magnesium [Mass/Vol] 2.0 mg/dL Normal 1.6-2.6 [facility] Comment on above: Performed By: #### M , CHM7 ####[facility] (DEFAULT)[address] [place] [address] Interpretation and review of laboratory results Normal [facility] Magnesium [Mass/Vol] 2.0 mg/dL 1.6 - 2 .6 mg/dL [facility] No Panel Informationon 01-22 [facility] PT,INR,PTTon 01-22-2024 aPTT Coag (Bld) [Time] 29.2 s Normal 24.0-34.3 [facility] Comment on above: Performed By: #### P TPTT ####[facility] (DEFAULT)[address] [place] [address], [place] [address] INR Coag (PPP) [Relative time] 1.1 {INR} Normal 0.9-1.1 [facility] Comment on above: Performed By: #### P TPTT ####[facility] (DEFAULT)[address] [place] [address], [place] [address] PT Coag (PPP) [Time] 14.3 s High 11.9-14.2 [facility] Comment on above: Performed By: #### P TPTT ####[facility] (DEFAULT)[address] [place] [address], [place] [address] aPTT Coag (PPP) [Time] 29.2 s [facility] INR Coag (Bld) [Relative time] 1.1 {INR} 0.9 - 1.1 [facility] Interpretation and review of laboratory results Abnormal [facility] PT Coag (PPP) [Time] 14.3 s High [facility] TACROLIMUS LEVEL, TROUGH (DC E DRUG LEVEL)Ordered By: Sheree Jensen on 01-22-2024 Interpretation and review of laboratory results Normal [facility] Tacrolimus (Bld) [Mass/Vol] 7.9 ng/mL Bone Marrow Transplant: 4.0-12.0, Therapeutic: 5.0-15.0 [facility] Method performed is a chemiluminescent microparticle immunoasssay on the [employer] i2000. The range is based on experience at [employer] and users should be aware that target concentrations vary widely depending on concomitant therapy, time post-transplant, and desired degree of immunosuppression. [facility] TACROLIMUS LEVEL, TROUGH (DC E DRUG LEVEL)on 01-22-2024 Tacrolimus, Trough 7.9 ng/mL Normal Bone Susana ow Transplant: 4.0-12.0, Therapeutic: 5.0-15.0 [facility] Comment on above: Order Comment: Pleas e draw at specified interval PRIOR to dose. Do not hold dose to wait for level. Specimens batched twice per day, (M-) and once per day weekendsMethod performed is a chemiluminescent microparticle immunoasssay on the [employer] i2000.The range is based on experience at [employer] and users should be aware that target concentrations vary widely depending on concomitant therapy, time post-transplant, and desired degree of immunosuppression. Performed By: #### T ACRO ####[facility] (DEFAULT)[address] [place] [address] TYPE AND SCREENon 01-22-2024 ABO/RH(D) TYPE Positive [facility] ABO/RH(D) TYPE Positive Normal [facility] Comment on above: Performed By: #### X M ####[facility] (DEFAULT)[address] [place] [address] [place] Unspecified body regionOr dered By: Unassigned Pacs on 01-22-2024 [facility] Work Phone: [place] Unspecified body regionon 01-22-2024 Radiology Study observation (narrative) [facility] CBC,PLATELETSon 01-21-2024 Hematocrit (Bld) [Volume fraction] 39.4 % Low 39.6-48.8 [facility] Comment on above: Performed By: #### H EMOGC ####[facility] (DEFAULT)[address] [place] [address] Hemoglobin (Bld) [Mass/Vol] 12.7 g/dL Low 13.4-16.8 [facility] Comment on above: Performed By: #### H EMOGC ####[facility] (DEFAULT)[address] [facility] [place] [address] MCV (RBC) [Entitic vol] 87.0 fL Normal 79.0-94.5 [facility] Comment on above: Performed By: #### H EMOGC ####[facility] (DEFAULT)[address] [facility] [place] [address] Mean Cell Hgb 28.0 pg Normal 26.1-33.3 [facility] Comment on above: Performed By: #### H EMOGC ####[facility] (DEFAULT)[address] [facility] [place] [place] [address] Mean Cell Hgb Conc 32.2 g/dL Normal 31.9-36.5 [facility] Comment on above: Performed By: #### H EMOGC ####[facility] (DEFAULT)[address] [facility] [place] [address] Platelet mean volume (Bld) [Entitic vol] 10.2 fL Normal 8.7-12.3 [facility] Comment on above: Performed By: #### H EMOGC ####[facility] (DEFAULT)[address] [facility] [place] [address] Platelets (Bld) [#/Vol] 157 10*3/uL Normal 146-337 [facility] Comment on above: Performed By: #### H EMOGC ####[facility] (DEFAULT)[address] [facility] [place] [address] RBC (Bld) [#/Vol] 4.53 10*6/uL Normal 4.38-5.83 [facility] Comment on above: Performed By: #### H EMOGC ####[facility] (DEFAULT)[address] [facility] [place] [address] RBC Distribution 14.0 % Normal 10.9-14.3 [facility] Comment on above: Performed By: #### H [facility] ####[facility] (DEFAULT)[address] [place] [address] WBC (Bld) [#/Vol] 3.42 10*3/uL Low 3.73-10.10 [facility] Comment on above: Performed By: #### H [facility] ####[facility] (DEFAULT)[address] [place] [address] Erythrocyte distribution width (RBC) [Ratio] 14.0 % 10.9 - 14.3 % [facility] Hematocrit (Bld) [Volume fraction] 39.4 % Low 39.6 - 48.8 % [facility] Hemoglobin (Bld) [Mass/Vol] 12.7 g/dL Low 13.4 - 16.8 g/dL [facility] Interpretation and review of laboratory results Abnormal [facility] MCH (RBC) [Entitic mass] 28.0 pg 26.1 - 33.3 pg [facility] MCHC (RBC) [Mass/Vol] 32.2 g/dL 31.9 - 36.5 g/dL [facility] MCV (RBC) [Entitic vol] 87.0 fL 79.0 - 94.5 fL [facility] Platelet mean volume (Bld) [Entitic vol] 10.2 fL 8.7 - 12.3 fL [facility] Platelets (Bld) [#/Vol] 157 10*3/uL 146 - 337 K/uL [facility] RBC (Bld) [#/Vol] 4.53 10*6/uL [facility] WBC (Bld) [#/Vol] 3.42 10*3/uL Low 3.73 - 10. 10 K/uL [facility] CHEM 7 (LYTES,BUN,CREA,GLUC) on 01-21-2024 Anion gap [Moles/Vol] 12 mmol/L Normal 7-17 [facility] Comment on above: Performed By: #### TJ RAMÍREZ7 ####[facility] (DEFAULT)[address] [place], [place] [address], [place] [address] Chloride [Moles/Vol] 107 mmol/L Normal 98-108 [facility] Comment on above: Performed By: #### TJ RAMÍREZ7 ####[facility] (DEFAULT)[address] [place] [address], [place] [address] CO2 [Moles/Vol] 26 mmol/L Normal 21-31 [facility] Comment on above: Performed By: #### TJ RAMÍREZ7 ####[facility] (DEFAULT)[address] [place] [address], [place] [address] Creatinine [Mass/Vol] 1.11 mg/dL Normal 0.70-1.30 [facility] Comment on above: Performed By: #### TJ RAMÍREZ7 ####[facility] (DEFAULT)[address] [place] [address] GFR/1.73 sq M.predicted among non-blacks MDRD (S/P/Bld) [Vol rate/Area] 80 mL/min/{1.73_m2} Normal >=60 [facility] Comment on above: Result Comment: Repo rted eGFR is based on the CKD-EPI 2020 equation using creatinine, age, and sex. Performed By: #### TJ RAMÍREZ7 ####[facility] (DEFAULT)[address] [place] [address], [place] [address] Glucose [Mass/Vol] 93 mg/dL Normal 70-99 [facility] Comment on above: Performed By: #### TJ RAMÍREZ7 ####[facility] (DEFAULT)[address] [place] [address], [place] [address] Osmolality [Osmolality] 295 mosm/kg Normal 278-305 [facility] Comment on above: Performed By: #### TJ RAMÍREZ7 ####[facility] (DEFAULT)[address] [facility] [place] [address] Potassium [Moles/Vol] 3.9 mmol/L Normal 3.5-5.0 [facility] Comment on above: Performed By: #### Rod BLOOM CHM7 ####[facility] (DEFAULT)[address] [facility] [place] [address] Sodium [Moles/Vol] 141 mmol/L Normal 135-145 [facility] Comment on above: Performed By: #### Rod BLOOM CHM7 ####[facility] (DEFAULT)[address] [facility] [place] [address] Urea nitrogen [Mass/Vol] 15 mg/dL Normal 7-25 [facility] Comment on above: Performed By: #### Rod BLOOM CHM7 ####[facility] (DEFAULT)[address] [facility] [place] [address] Urea nitrogen/Creatinine [Mass ratio] 14 mg/mg Normal [facility] Comment on above: Performed By: #### Rod BLOOM CHM7 ####[facility] (DEFAULT)[address] [facility] [place] [address] Anion gap [Moles/Vol] 12 mmol/L 7 - 17 mmol/L [facility] Chloride [Moles/Vol] 107 mmol/L 98 - 10 8 mmol/L [facility] CO2 [Moles/Vol] 26 mmol/L 21 - 31 mmol/L [facility] Creatinine [Mass/Vol] 1.11 mg/dL 0.70 - 1.30 mg/dL [facility] eGFR, CKD-EPI, Male 80 - PINF [facility] Comment on above: Reported eGFR is bas ed on the CKD-EPI 2020 equation using creatinine, age, and sex. Glucose [Mass/Vol] 93 mg/dL 70 - 99 mg/dL [facility] Osmolality Calc [Osmolality] 295 [facility] Potassium [Moles/Vol] 3.9 mmol/L 3.5 - 5.0 mmol/L [facility] Sodium [Moles/Vol] 141 mmol/L 135 - 145 mmol/L [facility] Urea nitrogen [Mass/Vol] 15 mg/dL 7 - 25 mg/dL [facility] Urea nitrogen/Creatinine [Mass ratio] 14 mg/mg [facility] Cardiac catheterization stud yOrdered By: Kelvin Donohue on 01-21-2024 Body surface area Derived from formula 2.08 m2 [facility] Work Phone: [facility] Work Phone: Cardiac catheterization stud yon 01-21-2024 Table formatting fro m the original result was not included. Hemodynamic Summary: Baseline Hemodynamics Systemic BP 132/63/90 mmHg mRAP 12 mmHg PA 49/25/35 mmHg PA oxygen saturation 68.8% PCWP 22 mmHg John CO 7.39 L/min John CI 3.64 L/min/m2 TPG 13 mmHg PVR John 1.76 Wood units With 0.4 mg sublingual nitroglycerine PA 43/21/32 mmHg PCWP 20 mmHg Fistula occluded with BP cuff pressure at 170 mmHg Systemic BP 132/60/86 mmHg PA 41/20/29 mmHg PA oxygen saturation 69 % PCWP 20 mmHg John CO 7.1 L/min John CI 3.5 L/min/m2 TPG 9 mmHg PVR John 1.27 Wood units Impression: 1.) Elevated filling pressures 2.) Near normal PA pressures 3.) Marginal improvement in PA pressures with nitroglycerin 4.) 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 Section of Advanced Heart Failure and Transplantation Division of Cardiovascular Diseases [facility] [email or web address] INVASIVE CARDIOVASCULAR PROC EDUREon 01-21-2024 INVASIVE CARDIOVASCULAR PROCEDURE Normal [facility] MAGNESIUMon 01-21-2024 Magnesium [Mass/Vol] 1.5 mg/dL Low 1.6-2.6 [facility] Comment on above: Performed By: #### M HELEN BLOOM ####[facility] (DEFAULT)[address] [place] [address] Interpretation and review of laboratory results Abnormal [facility] Magnesium [Mass/Vol] 1.5 mg/dL Low 1.6 - 2 .6 mg/dL [facility] No Panel Informationon 01-21 [facility] TACROLIMUS LEVEL, TROUGH (DC E DRUG LEVEL)on 01-21-2024 Interpretation and review of laboratory results Normal [facility] Tacrolimus (Bld) [Mass/Vol] 7.2 ng/mL Bone Marrow Transplant: 4.0-12.0, Therapeutic: 5.0-15.0 [facility] Method performed is a chemiluminescent microparticle immunoasssay on the [employer] i2000. The range is based on experience at [employer] and users should be aware that target concentrations vary widely depending on concomitant therapy, time post-transplant, and desired degree of immunosuppression. [facility] Tacrolimus, Trough 7.2 ng/mL Normal Bone Susana ow Transplant: 4.0-12.0, Therapeutic: 5.0-15.0 [facility] Comment on above: Order Comment: Pleas e draw at specified interval PRIOR to dose. Do not hold dose to wait for level. Specimens batched twice per day, (M-F) and once per day weekendsMethod performed is a chemiluminescent microparticle immunoasssay on the [employer] i2000.The range is based on experience at [employer] and users should be aware that target concentrations vary widely depending on concomitant therapy, time post-transplant, and desired degree of immunosuppression. Performed By: #### T ACRO ####[facility] (DEFAULT)[address] [place] [address] CBC,PLATELETSon 01-20-2024 Hematocrit (Bld) [Volume fraction] 38.9 % Low 39.6-48.8 [facility] Comment on above: Performed By: #### H [facility] ####[facility] (DEFAULT)[address] [place] [address] Hemoglobin (Bld) [Mass/Vol] 12.5 g/dL Low 13.4-16.8 [facility] Comment on above: Performed By: #### H EMOGC ####[facility] (DEFAULT)[address] [facility] [place] [address] MCV (RBC) [Entitic vol] 87.2 fL Normal 79.0-94.5 [facility] Comment on above: Performed By: #### H EMOGC ####[facility] (DEFAULT)[address] [facility] [place] [address] Mean Cell Hgb 28.0 pg Normal 26.1-33.3 [facility] Comment on above: Performed By: #### H EMOGC ####[facility] (DEFAULT)[address] [facility] [place] [address] Mean Cell Hgb Conc 32.1 g/dL Normal 31.9-36.5 [facility] Comment on above: Performed By: #### H EMOGC ####[facility] (DEFAULT)[address] [facility] [place] [address] Platelet mean volume (Bld) [Entitic vol] 10.2 fL Normal 8.7-12.3 [facility] Comment on above: Performed By: #### H EMOGC ####[facility] (DEFAULT)[address] [facility] [place] [address] Platelets (Bld) [#/Vol] 166 10*3/uL Normal 146-337 [facility] Comment on above: Performed By: #### H EMOGC ####[facility] (DEFAULT)[address] [facility] [place] [address] RBC (Bld) [#/Vol] 4.46 10*6/uL Normal 4.38-5.83 [facility] Comment on above: Performed By: #### H EMOGC ####[facility] (DEFAULT)[address] [facility] [place] [address] RBC Distribution 13.8 % Normal 10.9-14.3 [facility] Comment on above: Performed By: #### H EMOGC ####[facility] (DEFAULT)[address] [place] [address] WBC (Bld) [#/Vol] 3.79 10*3/uL Normal 3.73-10.10 [facility] Comment on above: Performed By: #### H [facility] ####[facility] [facility] (DEFAULT)[address] [place] [address] Erythrocyte distribution width (RBC) [Ratio] 13.8 % 10.9 - 14.3 % [facility] Hematocrit (Bld) [Volume fraction] 38.9 % Low 39.6 - 48.8 % [facility] Hemoglobin (Bld) [Mass/Vol] 12.5 g/dL Low 13.4 - 16.8 g/dL [facility] Interpretation and review of laboratory results Abnormal [facility] MCH (RBC) [Entitic mass] 28.0 pg 26.1 - 33.3 pg [facility] MCHC (RBC) [Mass/Vol] 32.1 g/dL 31.9 - 36.5 g/dL [facility] MCV (RBC) [Entitic vol] 87.2 fL 79.0 - 94.5 fL [facility] Platelet mean volume (Bld) [Entitic vol] 10.2 fL 8.7 - 12.3 fL [facility] Platelets (Bld) [#/Vol] 166 10*3/uL 146 - 337 K/uL [facility] RBC (Bld) [#/Vol] 4.46 10*6/uL [facility] WBC (Bld) [#/Vol] 3.79 10*3/uL 3.73 - 10. 10 K/uL [facility] CHEM 7 (LYTES,BUN,CREA,GLUC) on 01-20-2024 Anion gap [Moles/Vol] 12 mmol/L Normal 7-17 [facility] Comment on above: Performed By: #### M GO, HFP, CHM7 ####[facility] (DEFAULT)[address] [place] [address] Chloride [Moles/Vol] 105 mmol/L Normal 98-108 [facility] Comment on above: Performed By: #### TAVO RAMÍREZ, CHM7 ####[facility] (DEFAULT)[address] [place] [address] CO2 [Moles/Vol] 28 mmol/L Normal 21-31 [facility] Comment on above: Performed By: #### TAVO RAMÍREZ, CHM7 ####[facility] (DEFAULT)[address] [place] [address] Creatinine [Mass/Vol] 1.12 mg/dL Normal 0.70-1.30 [facility] Comment on above: Performed By: #### TAVO RAMÍREZ, CHM7 ####[facility] (DEFAULT)[address] [facility] [place] [address] GFR/1.73 sq M.predicted among non-blacks MDRD (S/P/Bld) [Vol rate/Area] 79 mL/min/{1.73_m2} Normal >=60 [facility] Comment on above: Result Comment: Repo rted eGFR is based on the CKD-EPI 2020 equation using creatinine, age, and sex. Performed By: #### TAVO RAMÍREZ, CHM7 ####[facility] (DEFAULT)[address] [facility] [place] [address] Glucose [Mass/Vol] 88 mg/dL Normal 70-99 [facility] Comment on above: Performed By: #### TAVO RAMÍREZ, CHM7 ####[facility] (DEFAULT)[address] [place] [address] Osmolality [Osmolality] 294 mosm/kg Normal 278-305 [facility] Comment on above: Performed By: #### TAVO RAMÍREZ, CHM7 ####[facility] (DEFAULT)[address] [place] [address] Potassium [Moles/Vol] 3.8 mmol/L Normal 3.5-5.0 [facility] Comment on above: Performed By: #### TAVO RAMÍREZ CHM7 ####[facility] (DEFAULT)[address] [facility] [place] [address] Sodium [Moles/Vol] 141 mmol/L Normal 135-145 [facility] Comment on above: Performed By: #### TAVO RAMÍREZ, CHM7 ####[facility] (DEFAULT)[address] [facility] [place] [address] Urea nitrogen [Mass/Vol] 15 mg/dL Normal 7-25 [facility] Comment on above: Performed By: #### TAVO RAMÍREZ, CHM7 ####[facility] (DEFAULT)[address] [facility] [place] [address] Urea nitrogen/Creatinine [Mass ratio] 13 mg/mg Normal [facility] Comment on above: Performed By: #### TAVO RAMÍREZ, CHM7 ####[facility] (DEFAULT)[address] [facility] [place] [address] Anion gap [Moles/Vol] 12 mmol/L 7 - 17 mmol/L [facility] Chloride [Moles/Vol] 105 mmol/L 98 - 10 8 mmol/L [facility] CO2 [Moles/Vol] 28 mmol/L 21 - 31 mmol/L [facility] Creatinine [Mass/Vol] 1.12 mg/dL 0.70 - 1.30 mg/dL [facility] eGFR, CKD-EPI, Male 80 - PINF [facility] Comment on above: Reported eGFR is bas ed on the CKD-EPI 2020 equation using creatinine, age, and sex. Glucose [Mass/Vol] 88 mg/dL 70 - 99 mg/dL [facility] Osmolality Calc [Osmolality] 294 [facility] Potassium [Moles/Vol] 3.8 mmol/L 3.5 - 5.0 mmol/L [facility] Sodium [Moles/Vol] 141 mmol/L 135 - 145 mmol/L [facility] Urea nitrogen [Mass/Vol] 15 mg/dL 7 - 25 mg/dL [facility] Urea nitrogen/Creatinine [Mass ratio] 13 mg/mg [facility] Cardiac catheterization stud yon 01-20-2024 [facility] Radiology Study observation (narrative) [facility] Radiology Study observation (narrative) [facility] EBV BY PCR, QUANTITATIVE,BLO ODOrdered By: Charlotte Jensen on 01-20-2024 EBV DNA ESTELITA+probe (Unsp spec) [#/Vol] NINF [facility] Interpretation and review of laboratory results Normal [facility] This test was perfor med using a real time PCR assay. The dynamic range for this assay is 1000-5,000,000 IU/mL. A result <1000 IU/mL does not rule out the presence of EBV DNA in quantities below the sensitivity of this assay. This test was developed and its performance characteristics determined by [facility] at [facility]. It has not been cleared or approved by the FDA. The laboratory is regulated under CLIA as qualified to perform high-complexity testing. This test is used for clinical purposes. It should not be regarded as investigational or for research. [facility] HEPATIC FUNCTION PANELon Albumin [Mass/Vol] 3.7 g/dL Normal 3.5-5.0 [facility] Comment on above: Performed By: #### M TAVO BLOOM CHM7 ####[facility] (DEFAULT)[address] [place] [address] ALP [Catalytic activity/Vol] 73 U/L Normal 32-126 [facility] Comment on above: Performed By: #### TAVO RAMÍREZ CHM7 ####[facility] (DEFAULT)[address] [place] [address] ALT [Catalytic activity/Vol] 12 U/L Normal 10-52 [facility] Comment on above: Performed By: #### TAVO RAMÍREZ, CHM7 ####[facility] (DEFAULT)[address] [place] [address] AST [Catalytic activity/Vol] 19 U/L Normal 10-39 [facility] Comment on above: Performed By: #### M TAVO BLOOM, CHM7 ####[facility] (DEFAULT)[address] [place] [address] Bilirubin [Mass/Vol] 2.1 mg/dL High <1.5 [facility] Comment on above: Performed By: #### TAVO RAMÍREZ, CHM7 ####[facility] (DEFAULT)[address] [place] [address] Bilirubin.indirect [Mass/Vol] 0.5 mg/dL High <0.3 [facility] Comment on above: Performed By: #### TAVO RAMÍREZ, CHM7 ####[facility] (DEFAULT)[address] [place] [address] Protein [Mass/Vol] 6.1 g/dL Low 6.4-8.3 [facility] Comment on above: Performed By: #### TAVO RAMÍREZ, CHM7 ####[facility] (DEFAULT)[address] [place] [address] Albumin [Mass/Vol] 3.7 g/dL 3.5 - 5.0 g/dL [facility] ALP [Catalytic activity/Vol] 73 U/L 32 - 126 U/L [facility] ALT [Catalytic activity/Vol] 12 U/L 10 - 52 U/L [facility] AST [Catalytic activity/Vol] 19 U/L 10 - 39 U/L [facility] Bilirubin [Mass/Vol] 2.1 mg/dL High NINF - 1.5 mg/dL [facility] Bilirubin.direct [Mass/Vol] 0.5 mg/dL High NINF - 0.3 mg/dL [facility] Interpretation and review of laboratory results Abnormal [facility] Protein [Mass/Vol] 6.1 g/dL Low 6.4 - 8.3 g/dL [facility] ITRACONAZOLE LEVELon 024 Hydroxyitraconazole 7.6 mcg/mL Normal [facility] Comment on above: Order Comment: Pleas e draw level at specified interval PRIOR to dose. Result Comment: ---- REFERENCE VALUE No therapeutic range established; activity and serumconcentration are similar to parent drug. ADDITIONAL INFORMATION This test was developed and its performance characteristicsdetermined by [facility] in a manner consistent with CLIArequirements. This test has not been cleared or approved bythe U.S. Food and Drug Administration.Test Performed by:[address] Director: Rosendo Bose M.D. Ph.D.; CLIA# [id number] Performed By: #### Noah ITCON ####[facility] (DEFAULT)[address] [place] [address] Itraconazole 6.0 mcg/mL Normal [facility] Comment on above: Order Comment: Pleas e draw level at specified interval PRIOR to dose. Result Comment: ---- REFERENCE VALUE-------------------------->0.5 (localized infection), >1.0 (systemic infection) Performed By: #### Y ITCON ####[facility] (DEFAULT)[address] [place] [address] MAGNESIUMon 01-20-2024 Magnesium [Mass/Vol] 1.6 mg/dL Normal 1.6-2.6 [facility] Comment on above: Performed By: ###TAVO HERNANDEZ, CHM7 ####[facility] (DEFAULT)[address] [place] [address] Interpretation and review of laboratory results Normal [facility] Magnesium [Mass/Vol] 1.6 mg/dL 1.6 - 2 .6 mg/dL [facility] No Panel Informationon 01-20 [facility] POCT CO-OXIMETRYon Hemoglobin (Bld) [Mass/Vol] 12.8 g/dL Low 13.4 - 16.8 g/dL [facility] Interpretation and review of laboratory results Abnormal [facility] Oxyhemoglobin 69 % Low 94 - 98 % [facility] Ordering physician notified. Test performed at address of the patient encounter. [facility] Hemoglobin (Bld) [Mass/Vol] 13.3 g/dL Low 13.4 - 16.8 g/dL [facility] Interpretation and review of laboratory results Abnormal [facility] Oxyhemoglobin 69 % Low 94 - 98 % [facility] Ordering physician notified. Test performed at address of the patient encounter. [facility] PT,INR,PTTon 01-20-2024 aPTT Coag (Bld) [Time] 30.6 s Normal 24.0-34.3 [facility] Comment on above: Performed By: #### P TPTT ####[facility] (DEFAULT)[address] [place] [address] INR Coag (PPP) [Relative time] 1.2 {INR} High 0.9-1.1 [facility] Comment on above: Performed By: #### P TPTT ####[facility] (DEFAULT)[address] [place] [address] PT Coag (PPP) [Time] 15.5 s High 11.9-14.2 [facility] Comment on above: Performed By: #### P TPTT ####[facility] (DEFAULT)[address] [place] [address] aPTT Coag (PPP) [Time] 30.6 s [facility] INR Coag (Bld) [Relative time] 1.2 {INR} High 0.9 - 1.1 [facility] Interpretation and review of laboratory results Abnormal [facility] PT Coag (PPP) [Time] 15.5 s High [facility] TACROLIMUS LEVEL, TROUGH (DC E DRUG LEVEL)Ordered By: Yanira Marcum on 01-20-2024 Interpretation and review of laboratory results Normal [facility] Tacrolimus (Bld) [Mass/Vol] 7.7 ng/mL Bone Marrow Transplant: 4.0-12.0, Therapeutic: 5.0-15.0 [facility] Method performed is a chemiluminescent microparticle immunoasssay on the [employer] i2000. The range is based on experience at [employer] and users should be aware that target concentrations vary widely depending on concomitant therapy, time post-transplant, and desired degree of immunosuppression. [facility] TACROLIMUS LEVEL, TROUGH (DC E DRUG LEVEL)on 01-20-2024 Tacrolimus, Trough 7.7 ng/mL Normal Bone [place] ow Transplant: 4.0-12.0, Therapeutic: 5.0-15.0 [facility] Comment on above: Order Comment: Pleas e draw at specified interval PRIOR to dose. Do not hold dose to wait for level. Specimens batched twice per day, (M-F) and once per day weekendsMethod performed is a chemiluminescent microparticle immunoasssay on the [employer] i2000.The range is based on experience at [employer] and users should be aware that target concentrations vary widely depending on concomitant therapy, time post-transplant, and desired degree of immunosuppression. Performed By: #### T ACRO ####[facility] (DEFAULT)[address] [place], [place] [address] CBC,PLATELETSon 01-19-2024 Hematocrit (Bld) [Volume fraction] 37.5 % Low 39.6-48.8 [facility] Comment on above: Performed By: #### H EMOGC ####[facility] (DEFAULT)[address] [facility] [place] [address] Hemoglobin (Bld) [Mass/Vol] 12.1 g/dL Low 13.4-16.8 [facility] Comment on above: Performed By: #### H EMOGC ####[facility] (DEFAULT)[address] [place] [address] MCV (RBC) [Entitic vol] 87.8 fL Normal 79.0-94.5 [facility] Comment on above: Performed By: #### H EMOGC ####[facility] (DEFAULT)[address] [facility] [place] [address] Mean Cell Hgb 28.3 pg Normal 26.1-33.3 [facility] Comment on above: Performed By: #### H EMOGC ####[facility] (DEFAULT)[address] [facility] [place] [address] Mean Cell Hgb Conc 32.3 g/dL Normal 31.9-36.5 [facility] Comment on above: Performed By: #### H EMOGC ####[facility] (DEFAULT)[address] [facility] [place] [address] Platelet mean volume (Bld) [Entitic vol] 10.4 fL Normal 8.7-12.3 [facility] Comment on above: Performed By: #### H EMOGC ####[facility] (DEFAULT)[address] [facility] [place] [address] Platelets (Bld) [#/Vol] 163 10*3/uL Normal 146-337 [facility] Comment on above: Performed By: #### H EMOGC ####[facility] (DEFAULT)[address] [place] [address] RBC (Bld) [#/Vol] 4.27 10*6/uL Low 4.38-5.83 [facility] Comment on above: Performed By: #### H EMOGC ####[facility] (DEFAULT)[address] [place] [address] RBC Distribution 13.9 % Normal 10.9-14.3 [facility] Comment on above: Performed By: #### H [facility] ####[facility] (DEFAULT)[address] [facility] [place] [address] WBC (Bld) [#/Vol] 3.69 10*3/uL Low 3.73-10.10 [facility] Comment on above: Performed By: #### H [facility] ####[facility] (DEFAULT)[address] [facility] [place] [address] Erythrocyte distribution width (RBC) [Ratio] 13.9 % 10.9 - 14.3 % [facility] Hematocrit (Bld) [Volume fraction] 37.5 % Low 39.6 - 48.8 % [facility] Hemoglobin (Bld) [Mass/Vol] 12.1 g/dL Low 13.4 - 16.8 g/dL [facility] Interpretation and review of laboratory results Abnormal [facility] MCH (RBC) [Entitic mass] 28.3 pg 26.1 - 33.3 pg [facility] MCHC (RBC) [Mass/Vol] 32.3 g/dL 31.9 - 36.5 g/dL [facility] MCV (RBC) [Entitic vol] 87.8 fL 79.0 - 94.5 fL [facility] Platelet mean volume (Bld) [Entitic vol] 10.4 fL 8.7 - 12.3 fL [facility] Platelets (Bld) [#/Vol] 163 10*3/uL 146 - 337 K/uL [facility] RBC (Bld) [#/Vol] 4.27 10*6/uL Low [facility] WBC (Bld) [#/Vol] 3.69 10*3/uL Low 3.73 - 10. 10 K/uL [facility] CHEM 7 (LYTES,BUN,CREA,GLUC) on 01-19-2024 Anion gap [Moles/Vol] 14 mmol/L Normal 7-17 [facility] Comment on above: Performed By: #### TJ RAMÍREZ7 ####[facility] (DEFAULT)[address] [facility] [place] [address] Chloride [Moles/Vol] 106 mmol/L Normal 98-108 [facility] Comment on above: Performed By: #### TJ RAMÍREZ7 ####[facility] (DEFAULT)[address] [facility] [place] [place] [address] CO2 [Moles/Vol] 24 mmol/L Normal 21-31 [facility] Comment on above: Performed By: #### TJ RAMÍREZ7 ####[facility] (DEFAULT)[address] [facility] [place] [place] [address] Creatinine [Mass/Vol] 1.13 mg/dL Normal 0.70-1.30 [facility] Comment on above: Performed By: #### TJ RAMÍREZ7 ####[facility] (DEFAULT)[address] [facility] [place] [address] GFR/1.73 sq M.predicted among non-blacks MDRD (S/P/Bld) [Vol rate/Area] 78 mL/min/{1.73_m2} Normal >=60 [facility] Comment on above: Result Comment: Repo rted eGFR is based on the CKD-EPI 2020 equation using creatinine, age, and sex. Performed By: #### TJ RAMÍREZ7 ####[facility] (DEFAULT)[address] [facility] [place] [place] [address] Glucose [Mass/Vol] 86 mg/dL Normal 70-99 [facility] Comment on above: Performed By: #### TJ RAMÍREZ7 ####[facility] (DEFAULT)[address] [facility] [place] [place] [address] Osmolality [Osmolality] 293 mosm/kg Normal 278-305 [facility] Comment on above: Performed By: #### TJ RAMÍREZ7 ####[facility] (DEFAULT)[address] [place] [address] Potassium [Moles/Vol] 3.8 mmol/L Normal 3.5-5.0 [facility] Comment on above: Performed By: #### Rod BLOOM CHM7 ####[facility] (DEFAULT)[address] [facility] [place] [address] Sodium [Moles/Vol] 140 mmol/L Normal 135-145 [facility] Comment on above: Performed By: #### Rod BLOOM CHM7 ####[facility] (DEFAULT)[address] [facility] [place] [place] [address] Urea nitrogen [Mass/Vol] 16 mg/dL Normal 7-25 [facility] Comment on above: Performed By: #### Rod BLOOM CHM7 ####[facility] (DEFAULT)[address] [facility] [place] [place] [address] Urea nitrogen/Creatinine [Mass ratio] 14 mg/mg Normal [facility] Comment on above: Performed By: #### Rod BLOOM CHM7 ####[facility] (DEFAULT)[address] [facility] [place] [address] Anion gap [Moles/Vol] 14 mmol/L 7 - 17 mmol/L [facility] Chloride [Moles/Vol] 106 mmol/L 98 - 10 8 mmol/L [facility] CO2 [Moles/Vol] 24 mmol/L 21 - 31 mmol/L [facility] Creatinine [Mass/Vol] 1.13 mg/dL 0.70 - 1.30 mg/dL [facility] eGFR, CKD-EPI, Male 78 - PINF [facility] Comment on above: Reported eGFR is bas ed on the CKD-EPI 2020 equation using creatinine, age, and sex. Glucose [Mass/Vol] 86 mg/dL 70 - 99 mg/dL [facility] Osmolality Calc [Osmolality] 293 [facility] Potassium [Moles/Vol] 3.8 mmol/L 3.5 - 5.0 mmol/L [facility] Sodium [Moles/Vol] 140 mmol/L 135 - 145 mmol/L [facility] Urea nitrogen [Mass/Vol] 16 mg/dL 7 - 25 mg/dL [facility] Urea nitrogen/Creatinine [Mass ratio] 14 mg/mg [facility] EBV BY PCR, QUANTITATIVE,BLO ODon 01-19-2024 Ebv By Pcr, Quant, Blood <1000 Normal <1000 [facility] Comment on above: Order Comment: This test was performed using a real time PCR assay. The dynamic range for this assay is 1000-5,000,000 IU/mL. A result <1000 IU/mL does not rule out the presence of EBV DNA in quantities below the sensitivity of this assay. This test was developed and its performance characteristics determined by [facility] at [facility]. It has not been cleared or approved by the FDA. The laboratory is regulated under CLIA as qualified to perform high-complexity testing. This test is used for clinical purposes. It should not be regarded as investigational or for research. Performed By: #### E BVPCR ####[facility] (DEFAULT)[address] [place] [address] HISTOPLASMA AND BLASTOMYCES ANTIGEN, ENZYME IMMUNOASSAY, SERMon 01-19-2024 Histoplasma/Blastomy antonia Ag Result Not detected Not Detected [facility] Comment on above: No antigen from Hist oplasma or Blastomyces detected. False negative results may occur depending on extent of disease, and/or site of infection. Repeat testing on a new specimen if clinically indicated. Histoplasma/Blastomy antonia Ag Value Not detected ng/mL [facility] Comment on above: ADDITIONAL INFORMATION This test was developed and its performance characteristics determined by [facility] in a manner consistent with CLIA requirements. This test has not been cleared or approved by the U.S. Food and Drug Administration. Test Performed by: [facility] [address] [place] [address] Mold Preparer: Rosendo Bose M.D. Ph.D.; CLIA# [id number] [facility] MAGNESIUMon 01-19-2024 Magnesium [Mass/Vol] 1.8 mg/dL Normal 1.6-2.6 [facility] Comment on above: Performed By: #### M MERLE, CHM7 ####[facility] (DEFAULT)[address] [place] [address] Interpretation and review of laboratory results Normal [facility] Magnesium [Mass/Vol] 1.8 mg/dL 1.6 - 2 .6 mg/dL [facility] No Panel Informationon 01-19 [facility] TACROLIMUS LEVEL, TROUGH (DC E DRUG LEVEL)Ordered By: Raymundo Mehta on 01-19-2024 Interpretation and review of laboratory results Normal [facility] Tacrolimus (Bld) [Mass/Vol] 6.8 ng/mL Bone Marrow Transplant: 4.0-12.0, Therapeutic: 5.0-15.0 [facility] Method performed is a chemiluminescent microparticle immunoasssay on the [employer] i2000. The range is based on experience at [facility] and users should be aware that target concentrations vary widely depending on concomitant therapy, time post-transplant, and desired degree of immunosuppression. [facility] TACROLIMUS LEVEL, TROUGH (DC E DRUG LEVEL)on 01-19-2024 Tacrolimus, Trough 6.8 ng/mL Normal Bone [place] ow Transplant: 4.0-12.0, Therapeutic: 5.0-15.0 [facility] Comment on above: Order Comment: Pleas e draw at specified interval PRIOR to dose. Do not hold dose to wait for level. Specimens batched twice per day, (M-F) and once per day weekendsMethod performed is a chemiluminescent microparticle immunoasssay on the [employer] i2000.The range is based on experience at [facility] and users should be aware that target concentrations vary widely depending on concomitant therapy, time post-transplant, and desired degree of immunosuppression. Performed By: #### T ACRO ####[facility] (DEFAULT)[address] [place] [address] US AV fistulaOrdered By: Diana Reyes on 01-19-2024 [facility] Work Phone: US AV fistulaon 01-19-2024 Radiology Study observation (narrative) [facility] AFP TUMOR MARKEROrdered By: Francisca Alaniz on 01-18-2024 AFP.tumor marker [Mass/Vol] ng/mL NINF - 8.1 ng/mL [facility] Comment on above: This test was perfor med on the [employer] Immunoassay platform by Generate which is a two-site sandwich chemiluminescent immunoassay. It is important to note that assays using different manufacturers and/or methods may not be comparable. Interpretation and review of laboratory results Normal [facility] CBC,PLATELETSon 01-18-2024 Hematocrit (Bld) [Volume fraction] 38.4 % Low 39.6-48.8 [facility] Comment on above: Performed By: #### H [facility] ####[facility] (DEFAULT)[address] [place] [address], [place] [address] Hemoglobin (Bld) [Mass/Vol] 12.1 g/dL Low 13.4-16.8 [facility] Comment on above: Performed By: #### H [facility] ####[facility] (DEFAULT)[address] [facility] [place] [address] MCV (RBC) [Entitic vol] 88.3 fL Normal 79.0-94.5 [facility] Comment on above: Performed By: #### H [facility] ####[facility] (DEFAULT)[address] [place] [address], [place] [address] Mean Cell Hgb 27.8 pg Normal 26.1-33.3 [facility] Comment on above: Performed By: #### H EMO ####[facility] (DEFAULT)[address] [facility] [place] [address] Mean Cell Hgb Conc 31.5 g/dL Low 31.9-36.5 [facility] Comment on above: Performed By: #### H EMO ####[facility] (DEFAULT)[address] [facility] [place] [address] Platelet mean volume (Bld) [Entitic vol] 10.4 fL Normal 8.7-12.3 [facility] Comment on above: Performed By: #### H EMO ####[facility] (DEFAULT)[address] [facility] [place] [address] Platelets (Bld) [#/Vol] 183 10*3/uL Normal 146-337 [facility] Comment on above: Performed By: #### H EMO ####[facility] (DEFAULT)[address] [facility] [place] [address] RBC (Bld) [#/Vol] 4.35 10*6/uL Low 4.38-5.83 [facility] Comment on above: Performed By: #### H EMO ####[facility] (DEFAULT)[address] [facility] [place] [address] RBC Distribution 13.9 % Normal 10.9-14.3 [facility] Comment on above: Performed By: #### H EMO ####[facility] (DEFAULT)[address] [facility] [place] [address] WBC (Bld) [#/Vol] 3.66 10*3/uL Low 3.73-10.10 [facility] Comment on above: Performed By: #### H EMO ####[facility] (DEFAULT)[address] [facility] [place] [address] Erythrocyte distribution width (RBC) [Ratio] 13.9 % 10.9 - 14.3 % [facility] Hematocrit (Bld) [Volume fraction] 38.4 % Low 39.6 - 48.8 % [facility] Hemoglobin (Bld) [Mass/Vol] 12.1 g/dL Low 13.4 - 16.8 g/dL [facility] Interpretation and review of laboratory results Abnormal [facility] MCH (RBC) [Entitic mass] 27.8 pg 26.1 - 33.3 pg [facility] MCHC (RBC) [Mass/Vol] 31.5 g/dL Low 31.9 - 36.5 g/dL [facility] MCV (RBC) [Entitic vol] 88.3 fL 79.0 - 94.5 fL [facility] Platelet mean volume (Bld) [Entitic vol] 10.4 fL 8.7 - 12.3 fL [facility] Platelets (Bld) [#/Vol] 183 10*3/uL 146 - 337 K/uL [facility] RBC (Bld) [#/Vol] 4.35 10*6/uL Low [facility] WBC (Bld) [#/Vol] 3.66 10*3/uL Low 3.73 - 10. 10 K/uL [facility] CHEM 7 (LYTES,BUN,CREA,GLUC) on 01-18-2024 Anion gap [Moles/Vol] 11 mmol/L Normal 7-17 [facility] Comment on above: Performed By: #### C HM7, HFP, MGO, TSHQR ####[facility] (DEFAULT)[address] [place] [address] Chloride [Moles/Vol] 108 mmol/L Normal 98-108 [facility] Comment on above: Performed By: #### C HM7, HFP, MGO, TSHQR ####[facility] (DEFAULT)[address] [facility] [place] [address] CO2 [Moles/Vol] 26 mmol/L Normal 21-31 [facility] Comment on above: Performed By: #### C HM7, HFP, MGO, TSHQR ####[facility] (DEFAULT)[address] [place] [address] Creatinine [Mass/Vol] 1.00 mg/dL Normal 0.70-1.30 [facility] Comment on above: Performed By: #### C HM7, HFP, MGO, TSHQR ####[facility] (DEFAULT)[address] [place] [address] eGFR, CKD-EPI, Male > Normal >=60 [facility] Comment on above: Result Comment: Repo rted eGFR is based on the CKD-EPI 2020 equation using creatinine, age, and sex. Performed By: #### C HM7, HFP, MGO, TSHQR ####[facility] (DEFAULT)[address] [place] [address] Glucose [Mass/Vol] 89 mg/dL Normal 70-99 [facility] Comment on above: Performed By: #### C HM7, HFP, MGO, TSHQR ####[facility] (DEFAULT)[address] [place] [address] Osmolality [Osmolality] 295 mosm/kg Normal 278-305 [facility] Comment on above: Performed By: #### C HM7, HFP, MGO, TSHQR ####[facility] (DEFAULT)[address] [place] [address] Potassium [Moles/Vol] 3.9 mmol/L Normal 3.5-5.0 [facility] Comment on above: Performed By: #### C HM7, HFP, MGO, TSHQR ####[facility] (DEFAULT)[address] [place] [address] Sodium [Moles/Vol] 141 mmol/L Normal 135-145 [facility] Comment on above: Performed By: #### C HM7, HFP, MGO, TSHQR ####[facility] (DEFAULT)[address] [place] [address] Urea nitrogen [Mass/Vol] 16 mg/dL Normal 7-25 [facility] Comment on above: Performed By: #### C HM7, HFP, MGO, TSHQR ####[facility] (DEFAULT)[address] [place] [address] Urea nitrogen/Creatinine [Mass ratio] 16 mg/mg Normal [facility] Comment on above: Performed By: #### C HM7, HFP, MGO, TSHQR ####[facility] (DEFAULT)[address] [place] [address] Anion gap [Moles/Vol] 11 mmol/L 7 - 17 mmol/L [facility] Chloride [Moles/Vol] 108 mmol/L 98 - 10 8 mmol/L [facility] CO2 [Moles/Vol] 26 mmol/L 21 - 31 mmol/L [facility] Creatinine [Mass/Vol] 1.00 mg/dL 0.70 - 1.30 mg/dL [facility] eGFR, CKD-EPI, Male - PINF [facility] Comment on above: Reported eGFR is bas ed on the CKD-EPI 2020 equation using creatinine, age, and sex. Glucose [Mass/Vol] 89 mg/dL 70 - 99 mg/dL [facility] Osmolality Calc [Osmolality] 295 [facility] Potassium [Moles/Vol] 3.9 mmol/L 3.5 - 5.0 mmol/L [facility] Sodium [Moles/Vol] 141 mmol/L 135 - 145 mmol/L [facility] Urea nitrogen [Mass/Vol] 16 mg/dL 7 - 25 mg/dL [facility] Urea nitrogen/Creatinine [Mass ratio] 16 mg/mg [facility] Cardiac echo study Procedure Ordered By: Gian Carlos on 01-18-2024 Ao ASC index 1.63 cm/m2 [facility] Work Phone: Ao peak meliton 1.46 m/s [facility] Work Phone: Ao SOV index 1.56 cm/m2 [facility] Work Phone: Ao STJ index 1.25 cm/m2 [facility] Work Phone: Ao VTI 35.74 cm [facility] Work Phone: Ascending [facility].[address] Work Phone: AV LVOT peak gradient 4 mmHg [facility] Work Phone: AV mean gradient 5 mmHg [facility] Work Phone: [phone] AV peak gradient 9 mmHG [facility] Work Phone: AV valve area 3.09 cm2 [facility] Work Phone: AV Velocity Ratio 0.73 [facility] Work Phone: VEGA (continuity Vmax) 3.01 cm2 [facility] Work Phone: VEGA (continuity VTI) 3.09 cm2 [facility] Work Phone: VEGA index (continuity Vmax) 1.45 m/s [facility] Work Phone: VEGA index (continuity VTI) 1.49 cm2/m2 [facility] Work Phone: Avg e' pk meliton 0.07 m/s [facility] Work Phone: Avg E/e' ratio 19.45 [facility] Work Phone: Body surface area Derived from formula 2.08 m2 [facility] Work Phone: BP EF 62 % [facility] Work Phone: DI (Vmax) 0.73 [facility] Work Phone: DI (VTI) 0.74 m/2 [facility] Work Phone: E wave decelartion time 180.38 msec [facility] Work Phone: e' lateral pk meliton 0.0789 m/s [facility] Work Phone: e' lateral pk meliton 0.08 m/s [facility] Work Phone: e' septal pk meliton 0.0653 m/s [facility] Work Phone: e' septal pk meliton 0.07 m/s [facility] Work Phone: E/A ratio 2.67 [facility] Work Phone: E/e' lateral ratio 17.62 [facility] Work Phone: E/e' septal [facility].29 [facility] Work Phone: EF SP 2CH 66 [facility] Work Phone: EF SP 4CH 58 [facility] Work Phone: FS 28 % 28 - 44 % [facility] Work Phone: IVC ostium 2.30 cm [facility] Work Phone: IVS 1.11 cm [facility] Work Phone: LA AREA 2CH 24.36 cm2 [facility] Work Phone: LA area 4CH 20.36 cm2 [facility] Work Phone: LA ESV BP (MOD) 64 mL [facility] Work Phone: LA ESV BP (MOD) index 31 mL/m2 [facility] Work Phone: LA ESV SP 2CH (MOD) 76 mL [facility] Work Phone: LA ESV SP 4CH (MOD) 53 mL [facility] Work Phone: [phone] LV EDV BP 180 mL [facility] Work Phone: LV EDV SP 2CH 190 mL [facility] Work Phone: [phone] LV EDV SP 4CH 166 mL [facility] Work Phone: [phone] LV ESV BP 69 mL [facility] Work Phone: [phone] LV ESV SP 2CH 65 mL [facility] Work Phone: [phone] LV ESV SP 4CH 70 mL [facility] Work Phone: [phone] LV mass 254.73 g [facility] Work Phone: LV Mass Index 122.5 g/m2 [facility] Work Phone: [phone] LV RWT 0.42 [facility] Work Phone: [phone] LV stroke volume BP (ml) 111 mL [facility] Work Phone: LV stroke volume index BP 53.37 mL/m2 [facility] Work Phone: [phone] LVIDD 5.53 cm [facility] Work Phone: LVIDS 3.97 cm [facility] Work Phone: [phone] LVOT area 4.15 cm2 [facility] Work Phone: LVOT diameter 2.30 cm [facility] Work Phone: [phone] LVOT peak meliton 1.06 m/s [facility] Work Phone: LVOT peak VTI 26.61 cm [facility] Work Phone: LVOT stroke volume [address] [facility] Work Phone: LVOT stroke volume index 53.13 ml/m2 [facility] Work Phone: Mr max meliton 4.21 m/s [facility] Work Phone: MR VTI 134.50 cm [facility] Work Phone: [facility] gradient [facility]: [facility] peak gradient 11 [facility] Work Phone: MV pk A meliton 0.52 m/s [facility] Work Phone: MV pk E meliton 1.39 m/s [facility] Work Phone: MV stenosis pressure 1/2 time 58.56 ms [facility] Work Phone: MV valve area by continuity eq 2.93 cm2 [facility] Work Phone: MV valve area p 1/2 method 3.76 cm2 [facility] Work Phone: MV VTI 37.70 cm [facility] Work Phone: MVA (continuity VTI) 2.92 cm [facility] Work Phone: [facility] AV VTI RATIO PRE STRESS 0.74 [facility] Work Phone: [facility] ECHO LV BIPLANE SYSTOLIC VOLUME INDEX 33.17 mL/m2 [facility] Work Phone: [facility] ECHO LV BP DIASTOLIC VOLUME INDEX 86.54 mL/m2 [facility] Work Phone: [facility] ECHO MR PEAK GRADIENT 70.94 mmHg [facility] Work Phone: PW 1.16 cm [facility] Work Phone: RA area 4CH (MOD) 14.50 cm2 [facility] Work Phone: RA vol index 4CH (MOD) 18.27 mL/m2 [facility] Work Phone: Right atrium volume 4 chamber method of disks 38 mL [facility] Work Phone: RV Area diastolic 33.20 cm2 [facility] Work Phone: RV Area systolic 21.30 cm2 [facility] Work Phone: RV basal diam 4.52 cm [facility] Work Phone: RV Fractional area change 35.8 % [facility] Work Phone: RV long diam 8.96 cm [facility] Work Phone: RV mid diam 3.70 cm [facility] Work Phone: RV S' 22.01 cm/s [facility] Work Phone: RVOT peak gradient [address] [facility] Work Phone: RVOT peak meliton 0.96 m/s [facility] Work Phone: RVOT peak VTI 20.86 cm [facility] Work Phone: Sinus 3.24 cm [facility] Work Phone: STJ 2.61 cm [facility] Work Phone: Stroke Volume 111 cm/mL [facility] Work Phone: Stroke volume index 53 [facility] Work Phone: TAPSE 2.19 cm [facility] Work Phone: [facility] Work Phone: Cardiac echo study Procedure on 01-18-2024 Left Ventricle: Jhon dandy size is normal. Increased wall thickness. Concentric hypertrophy. Normal global systolic function. Regional wall motion is normal. Ejection fraction is normal (55 - 60%). Right Ventricle: Chamber size is normal. Systolic function is low normal. No hemodynamically significnat valve disease. Moderate pericardial effusion. There is no evidence of tamponade. Left Ventricle Chamber size is normal. Increased wall thickness. Concentric hypertrophy. Normal global systolic function. Regional wall motion is normal. Ejection fraction is normal (55 - 60%). Diastolic function is normal. Right Ventricle Chamber size is normal. Systolic function is low normal. Left Atrium Chamber size is normal. Right Atrium Chamber size is normal. IVC/SVC The inferior vena cava is enlarged. Mitral Valve Normal appearing leaflets. Leaflet mobility is normal. Trace regurgitation. No valve stenosis. Tricuspid Valve Normal leaflets. Leaflet mobility is normal. No regurgitation. No stenosis. Pulmonary artery systolic pressure (PASP) is unable to be estimated. Aortic Valve Trileaflet valve. Cusp sclerosis visualized. Leaflet mobility is normal. Trace regurgitation. No stenosis. Pulmonic Valve Normal structure. Trace regurgitation. No stenosis. Pericardium Moderate pericardial effusion. There is no evidence of tamponade. Septum The atrial septum is normal. Pulmonary Artery The pulmonary artery is normal. Aorta No dilation to extent seen. Study Details A complete echocardiography study was performed. Imaging system used: [employer]. Indications Indications for study: shortness of breath. [facility] Radiology Study observation (narrative) [facility] HEPATIC FUNCTION PANELon Albumin [Mass/Vol] 3.5 g/dL Normal 3.5-5.0 [facility] Comment on above: Performed By: #### C HM7, HFP, MGO, TSHQR ####[facility] (DEFAULT)[address] [place] [address] ALP [Catalytic activity/Vol] 70 U/L Normal 32-126 [facility] Comment on above: Performed By: #### C HM7, HFP, MGO, TSHQR ####[facility] (DEFAULT)[address] [place] [address] ALT [Catalytic activity/Vol] 8 U/L Low 10-52 [facility] Comment on above: Performed By: #### C HM7, HFP, MGO, TSHQR ####[facility] (DEFAULT)[address] [place] [address] AST [Catalytic activity/Vol] 20 U/L Normal 10-39 [facility] Comment on above: Performed By: #### C HM7, HFP, MGO, TSHQR ####[facility] (DEFAULT)[address] [place] [address] Bilirubin [Mass/Vol] 1.7 mg/dL High <1.5 [facility] Comment on above: Performed By: #### C HM7, HFP, MGO, TSHQR ####[facility] (DEFAULT)[address] [place] [address] Bilirubin.indirect [Mass/Vol] 0.4 mg/dL High <0.3 [facility] Comment on above: Performed By: #### C HM7, HFP, MGO, TSHQR ####[facility] (DEFAULT)[address] [place] [address] Protein [Mass/Vol] 6.0 g/dL Low 6.4-8.3 [facility] Comment on above: Performed By: #### C HM7, HFP, MGO, TSHQR ####[facility] (DEFAULT)[address] [place] [address] Albumin [Mass/Vol] 3.5 g/dL 3.5 - 5.0 g/dL [facility] ALP [Catalytic activity/Vol] 70 U/L 32 - 126 U/L [facility] ALT [Catalytic activity/Vol] 8 U/L Low 10 - 52 U/L [facility] AST [Catalytic activity/Vol] 20 U/L 10 - 39 U/L [facility] Bilirubin [Mass/Vol] 1.7 mg/dL High NINF - 1.5 mg/dL [facility] Bilirubin.direct [Mass/Vol] 0.4 mg/dL High NINF - 0.3 mg/dL [facility] Protein [Mass/Vol] 6.0 g/dL Low 6.4 - 8.3 g/dL [facility] MAGNESIUMon 01-18-2024 Magnesium [Mass/Vol] 1.5 mg/dL Low 1.6-2.6 [facility] Comment on above: Performed By: #### C HM7, HFP, MGO, TSHQR ####[facility] (DEFAULT)[address] [facility] [place] [address] Magnesium [Mass/Vol] 1.5 mg/dL Low 1.6 - 2 .6 mg/dL [facility] No Panel Informationon 01-18 Interpretation and review of laboratory results Abnormal [facility] PT,INR,PTTon 01-18-2024 aPTT Coag (Bld) [Time] 30.0 s Normal 24.0-34.3 [facility] Comment on above: Performed By: #### P TPTT ####[facility] (DEFAULT)[address] [facility] [place] [address] INR Coag (PPP) [Relative time] 1.1 {INR} Normal 0.9-1.1 [facility] Comment on above: Performed By: #### P TPTT ####[facility] (DEFAULT)[address] [facility] [place] [address] PT Coag (PPP) [Time] 14.5 s High 11.9-14.2 [facility] Comment on above: Performed By: #### P TPTT ####[facility] (DEFAULT)[address] [facility] [place] [address] aPTT Coag (PPP) [Time] 30.0 s [facility] INR Coag (Bld) [Relative time] 1.1 {INR} 0.9 - 1.1 [facility] Interpretation and review of laboratory results Abnormal [facility] PT Coag (PPP) [Time] 14.5 s High [facility] TSH W/FT4 REFLEXon 4 Interpretation and review of laboratory results Normal [facility] TSH Qn 2.660 m[IU]/L [facility] TSH 2.660 uIU/mL Normal 0.550-4.780 [facility] Comment on above: Performed By: #### C HM7, HFP, MGO, TSHQR ####[facility] (DEFAULT)[address] [place] [address] AFP TUMOR MARKERon 4 AFP Tumor Marker <2.2 Normal <8.1 [facility] Comment on above: Result Comment: This test was performed on the [employer] Immunoassay platform by [employer] which is a two-site sandwich chemiluminescent immunoassay. It is important to note that assays using different manufacturers and/or methods may not be comparable. Performed By: #### A FPTMR ####[facility] (DEFAULT)[address] [place] [address] DARYL AURIS SCREEN BY PCRO rdered By: Mynor Alejandro on 01-17-2024 Daryl auris Screen by PCR Not detected Not Detected [facility] Interpretation and review of laboratory results Normal [facility] This test was perfor med using a real-time PCR assay. This test was developed, and its performance characteristics determined by [facility] at [facility]. It has not been cleared or approved by the FDA. The laboratory is regulated under CLIA as qualified to perform high-complexity testing. This test is used for clinical purposes. It should not be regarded as investigational or for research. [facility] CBC,PLATELETSon 01-17-2024 Hematocrit (Bld) [Volume fraction] 37.2 % Low 39.6-48.8 [facility] Comment on above: Performed By: #### H EMOGC ####[facility] (DEFAULT)[address] [place] [address] Hemoglobin (Bld) [Mass/Vol] 12.0 g/dL Low 13.4-16.8 [facility] Comment on above: Performed By: #### H EMOGC ####[facility] (DEFAULT)[address] [facility] [place] [address] MCV (RBC) [Entitic vol] 86.5 fL Normal 79.0-94.5 [facility] Comment on above: Performed By: #### H EMOGC ####[facility] (DEFAULT)[address] [place] [address] Mean Cell Hgb 27.9 pg Normal 26.1-33.3 [facility] Comment on above: Performed By: #### H EMOGC ####[facility] (DEFAULT)[address] [facility] [place] [address] Mean Cell Hgb Conc 32.3 g/dL Normal 31.9-36.5 [facility] Comment on above: Performed By: #### H EMOGC ####[facility] (DEFAULT)[address] [place] [address] Platelet mean volume (Bld) [Entitic vol] 10.5 fL Normal 8.7-12.3 [facility] Comment on above: Performed By: #### H EMOGC ####[facility] (DEFAULT)[address] [place] [address] Platelets (Bld) [#/Vol] 159 10*3/uL Normal 146-337 [facility] Comment on above: Performed By: #### H EMOGC ####[facility] (DEFAULT)[address] [place] [address] RBC (Bld) [#/Vol] 4.30 10*6/uL Low 4.38-5.83 [facility] Comment on above: Performed By: #### H [facility] ####[facility] (DEFAULT)[address] [facility] [place] [address] RBC Distribution 14.0 % Normal 10.9-14.3 [facility] Comment on above: Performed By: #### H [facility] ####[facility] (DEFAULT)[address] [place] [address] WBC (Bld) [#/Vol] 3.69 10*3/uL Low 3.73-10.10 [facility] Comment on above: Performed By: #### H [facility] ####[facility] (DEFAULT)[address] [place] [address] Erythrocyte distribution width (RBC) [Ratio] 14.0 % 10.9 - 14.3 % [facility] Hematocrit (Bld) [Volume fraction] 37.2 % Low 39.6 - 48.8 % [facility] Hemoglobin (Bld) [Mass/Vol] 12.0 g/dL Low 13.4 - 16.8 g/dL [facility] Interpretation and review of laboratory results Abnormal [facility] MCH (RBC) [Entitic mass] 27.9 pg 26.1 - 33.3 pg [facility] MCHC (RBC) [Mass/Vol] 32.3 g/dL 31.9 - 36.5 g/dL [facility] MCV (RBC) [Entitic vol] 86.5 fL 79.0 - 94.5 fL [facility] Platelet mean volume (Bld) [Entitic vol] 10.5 fL 8.7 - 12.3 fL [facility] Platelets (Bld) [#/Vol] 159 10*3/uL 146 - 337 K/uL [facility] RBC (Bld) [#/Vol] 4.30 10*6/uL Low [facility] WBC (Bld) [#/Vol] 3.69 10*3/uL Low 3.73 - 10. 10 K/uL [facility] CHEM 7 (LYTES,BUN,CREA,GLUC) on 01-17-2024 Anion gap [Moles/Vol] 13 mmol/L Normal 7-17 [facility] Comment on above: Performed By: #### C HM7, HFP, MGO ####[facility] (DEFAULT)[address] [facility] [place] [address] Chloride [Moles/Vol] 109 mmol/L High 98-108 [facility] Comment on above: Performed By: #### C HM7, HFP, MGO ####[facility] (DEFAULT)[address] [facility] [place] [address] CO2 [Moles/Vol] 21 mmol/L Normal 21-31 [facility] Comment on above: Performed By: #### C HM7, HFP, MGO ####[facility] (DEFAULT)[address] [facility] [place] [address] Creatinine [Mass/Vol] 1.04 mg/dL Normal 0.70-1.30 [facility] Comment on above: Performed By: #### C HM7, HFP, MGO ####[facility] (DEFAULT)[address] [facility] [place] [address] GFR/1.73 sq M.predicted among non-blacks MDRD (S/P/Bld) [Vol rate/Area] 86 mL/min/{1.73_m2} Normal >=60 [facility] Comment on above: Result Comment: Repo rted eGFR is based on the CKD-EPI 2020 equation using creatinine, age, and sex. Performed By: #### C HM7, HFP, MGO ####[facility] (DEFAULT)[address] [facility] [place] [address] Glucose [Mass/Vol] 82 mg/dL Normal 70-99 [facility] Comment on above: Performed By: #### C HM7, HFP, MGO ####[facility] (DEFAULT)[address] [facility] [place] [address] Osmolality [Osmolality] 292 mosm/kg Normal 278-305 [facility] Comment on above: Performed By: #### C HM7, HFP, MGO ####[facility] (DEFAULT)[address] [place] [address] Potassium [Moles/Vol] 4.4 mmol/L Normal 3.5-5.0 [facility] Comment on above: Performed By: #### C HM7, HFP, MGO ####[facility] (DEFAULT)[address] [facility] [place] [place] [address] Sodium [Moles/Vol] 139 mmol/L Normal 135-145 [facility] Comment on above: Performed By: #### C HM7, HFP, MGO ####[facility] (DEFAULT)[address] [facility] [place] [place] [address] Urea nitrogen [Mass/Vol] 17 mg/dL Normal 7-25 [facility] Comment on above: Performed By: #### C HM7, HFP, MGO ####[facility] (DEFAULT)[address] [facility] [place] [place] [address] Urea nitrogen/Creatinine [Mass ratio] 16 mg/mg Normal [facility] Comment on above: Performed By: #### C HM7, HFP, MGO ####[facility] (DEFAULT)[address] [facility] [place] [address] Anion gap [Moles/Vol] 13 mmol/L 7 - 17 mmol/L [facility] Chloride [Moles/Vol] 109 mmol/L High 98 - 10 8 mmol/L [facility] CO2 [Moles/Vol] 21 mmol/L 21 - 31 mmol/L [facility] Creatinine [Mass/Vol] 1.04 mg/dL 0.70 - 1.30 mg/dL [facility] eGFR, CKD-EPI, Male 86 - PINF [facility] Comment on above: Reported eGFR is bas ed on the CKD-EPI 2020 equation using creatinine, age, and sex. Glucose [Mass/Vol] 82 mg/dL 70 - 99 mg/dL [facility] Osmolality Calc [Osmolality] 292 [facility] Potassium [Moles/Vol] 4.4 mmol/L 3.5 - 5.0 mmol/L [facility] Sodium [Moles/Vol] 139 mmol/L 135 - 145 mmol/L [facility] Urea nitrogen [Mass/Vol] 17 mg/dL 7 - 25 mg/dL [facility] Urea nitrogen/Creatinine [Mass ratio] 16 mg/mg [facility] CT ABDOMEN/PELVIS WITHOUT CO NTRASTon 01-17-2024 CT ABDOMEN/PELVIS WITHOUT CONTRAST Normal [facility] CT Abdomen and Pelvis WO con traston 01-17-2024 IMPRESSION: 1. Since 08/31/2023, resolution of previously seen abdominal lymphadenopathy. 2. New mild to moderate pericardial effusion. 3. Moderate to large right pleural effusion with complete atelectasis of the visualized right lower lobe and most of the middle lobe. Trace left pleural effusion. OLOGY EXAM: CT ABDOMEN/PEL VIS WITHOUT CONTRAST, 01/17/2024 10:07 AM COMPARISON: CT abdomen pelvis dated August 31, 2023 CLINICAL INDICATIONS: reevaluate LAD; TECHNIQUE: CT scanning of the abdomen and pelvis was performed without the administration of intravenous contrast. PROTOCOL: Standard. CONTRAST: FINDINGS: Lung Bases: Large right pleural effusion with complete atelectasis of the visualized right lower lobe and most of the right middle lobe. Trace left pleural effusion with atelectasis. New mild to moderate pericardial effusion. Multivessel coronary artery calcifications. ABDOMEN Suboptimal assessment of the abdominal viscera vasculature due to lack of IV contrast. Liver: Liver transplant. The lesions question on ultrasound are not visualized on this noncontrast exam. Biliary/Gallbladder: Cholecystectomy The biliary tree is nondilated. Spleen: Spleen is normal in size and CT density. Pancreas: Normal noncontrast appearance the pancreas. Adrenals: Adrenal glands are unremarkable. Kidneys: Severe atrophy of the bilateral anvik kidney is without hydronephrosis. Right lower quadrant renal transplant without hydronephrosis. 2 mm nonobstructive renal transplant stone. Retroperitoneal/Vasculature : Previously described abdominal lymph nodes have decreased in size and are no longer enlarged. No new lymphadenopathy. Previously measured lymph nodes as below: *Gastrohepatic lymph node measures 1.0 x 0.7 cm on (series 3 image 44), previously 1.2 x 1.1 cm. *Precaval lymph node, posterior to the duodenum, measures 1.3 x 0.6 cm (series 3 image 71), previously 1.8 x 1.1 cm. *Periportal lymph node measures 1.9 x 0.9 cm (series 3 image 36), previously 1.8 x 1.2 cm. *Aortocaval lymph node measures 1.1 x 0.7 cm (series 2 image 34), previously 1.7 x 1.1 cm. Aorta is normal in caliber. Moderate calcified atherosclerotic disease. Prominent portosystemic collateral veins are again seen in the left upper left retroperitoneum and gastrohepatic region. Gastrointestinal/Mesentery: The bowel loops are non-dilated without wall thickening. No ascites or fluid collections.. PELVIS Bladder: The bladder is normal. Genital: The prostate and seminal vesicles are unremarkable. Other: Small fat-containing umbilical hernia. Bony Structures: Multilevel degenerative changes of the spine. Stable mild T12 superior endplate compression deformity with a Schmorl's node. Grade 1 retrolisthesis of L5 on S1.. RADIOLOGY Iona Duran MD - 01/17/2024 EXAM: CT ABDOMEN/PELVIS WITHOUT CONTRAST, 01/17/2024 10:07 AM COMPARISON: CT abdomen pelvis dated August 31, 2023 CLINICAL INDICATIONS: reevaluate LAD; TECHNIQUE: CT scanning of the abdomen and pelvis was performed without the administration of intravenous contrast. PROTOCOL: Standard. CONTRAST: FINDINGS: Lung Bases: Large right pleural effusion with complete atelectasis of the visualized right lower lobe and most of the right middle lobe. Trace left pleural effusion with atelectasis. New mild to moderate pericardial effusion. Multivessel coronary artery calcifications. ABDOMEN Suboptimal assessment of the abdominal viscera vasculature due to lack of IV contrast. Liver: Liver transplant. The lesions question on ultrasound are not visualized on this noncontrast exam. Biliary/Gallbladder: Cholecystectomy The biliary tree is nondilated. Spleen: Spleen is normal in size and CT density. Pancreas: Normal noncontrast appearance the pancreas. Adrenals: Adrenal glands are unremarkable. Kidneys: Severe atrophy of the bilateral anvik kidney is without hydronephrosis. Right lower quadrant renal transplant without hydronephrosis. 2 mm nonobstructive renal transplant stone. Retroperitoneal/Vasculature : Previously described abdominal lymph nodes have decreased in size and are no longer enlarged. No new lymphadenopathy. Previously measured lymph nodes as below: *Gastrohepatic lymph node measures 1.0 x 0.7 cm on (series 3 image 44), previously 1.2 x 1.1 cm. *Precaval lymph node, posterior to the duodenum, measures 1.3 x 0.6 cm (series 3 image 71), previously 1.8 x 1.1 cm. *Periportal lymph node measures 1.9 x 0.9 cm (series 3 image 36), previously 1.8 x 1.2 cm. *Aortocaval lymph node measures 1.1 x 0.7 cm (series 2 image 34), previously 1.7 x 1.1 cm. Aorta is normal in caliber. Moderate calcified atherosclerotic disease. Prominent portosystemic collateral veins are again seen in the left upper left retroperitoneum and gastrohepatic region. Gastrointestinal/Mesentery: The bowel loops are non-dilated without wall thickening. No ascites or fluid collections.. PELVIS Bladder: The bladder is normal. Genital: The prostate and seminal vesicles are unremarkable. Other: Small fat-containing umbilical hernia. Bony Structures: Multilevel degenerative changes of the spine. Stable mild T12 superior endplate compression deformity with a Schmorl's node. Grade 1 retrolisthesis of L5 on S1.. IMPRESSION IMPRESSION: 1. Since 08/31/2023, resolution of previously seen abdominal lymphadenopathy. 2. New mild to moderate pericardial effusion. 3. Moderate to large right pleural effusion with complete atelectasis of the visualized right lower lobe and most of the middle lobe. Trace left pleural effusion. [facility] Radiology Study observation (narrative) [facility] HEPATIC FUNCTION PANELon Albumin [Mass/Vol] 3.5 g/dL Normal 3.5-5.0 [facility] Comment on above: Performed By: #### C HM7, HFP, MGO ####[facility] (DEFAULT)[address] [place] [address] ALP [Catalytic activity/Vol] 73 U/L Normal 32-126 [facility] Comment on above: Performed By: #### C HM7, HFP, MGO ####[facility] (DEFAULT)[address] [place] [address] ALT [Catalytic activity/Vol] 7 U/L Low 10-52 [facility] Comment on above: Performed By: #### C HM7, HFP, MGO ####[facility] (DEFAULT)[address] [place] [address] AST [Catalytic activity/Vol] 25 U/L Normal 10-39 [facility] Comment on above: Performed By: #### C HM7, HFP, MGO ####[facility] (DEFAULT)[address] [place] [address] Bilirubin [Mass/Vol] 1.8 mg/dL High <1.5 [facility] Comment on above: Performed By: #### C HM7, HFP, MGO ####[facility] (DEFAULT)[address] [place] [address] Bilirubin.indirect [Mass/Vol] 0.3 mg/dL High <0.3 [facility] Comment on above: Performed By: #### C HM7, HFP, MGO ####[facility] (DEFAULT)[address] [place] [address] Protein [Mass/Vol] 6.0 g/dL Low 6.4-8.3 [facility] Comment on above: Performed By: #### C HM7, HFP, MGO ####[facility] (DEFAULT)[address] [place] [address] Albumin [Mass/Vol] 3.5 g/dL 3.5 - 5.0 g/dL [facility] ALP [Catalytic activity/Vol] 73 U/L 32 - 126 U/L [facility] ALT [Catalytic activity/Vol] 7 U/L Low 10 - 52 U/L [facility] AST [Catalytic activity/Vol] 25 U/L 10 - 39 U/L [facility] Bilirubin [Mass/Vol] 1.8 mg/dL High NINF - 1.5 mg/dL [facility] Bilirubin.direct [Mass/Vol] 0.3 mg/dL High NINF - 0.3 mg/dL [facility] Protein [Mass/Vol] 6.0 g/dL Low 6.4 - 8.3 g/dL [facility] HISTOPLASMA AND BLASTOMYCES ANTIGEN, ENZYME IMMUNOASSAY, SERMon 01-17-2024 Histoplasma/Blastomy [place]tonia Ag Result Not detected Normal Not Detected [facility] Comment on above: Result Comment: No a ntigen from Histoplasma or Blastomyces detected. Falsenegative results may occur depending on extent of disease,and/or site of infection. Repeat testing on a new specimenif clinically indicated. Performed By: #### H CORAL ####[facility] (DEFAULT)[address] [address] Histoplasma/Blastomy antonia Ag Value Not detected Normal [facility] Comment on above: Result Comment: ---- ADDITIONAL INFORMATION This test was developed and its performance characteristicsdetermined by [facility] in a manner consistent with CLIArequirements. This test has not been cleared or approved bythe U.S. Food and Drug Administration.Test Performed by:[place] [id number] Director: Rosendo Bose M.D. Ph.D.; CLIA# [id number] Performed By: #### H CORAL ####[facility] (DEFAULT)[address] [place] [address] MAGNESIUMon 01-17-2024 Magnesium [Mass/Vol] 1.7 mg/dL Normal 1.6-2.6 [facility] Comment on above: Performed By: #### C HM7, HFP, MGO ####[facility] (DEFAULT)[address] [place] [address] Interpretation and review of laboratory results Normal [facility] Magnesium [Mass/Vol] 1.7 mg/dL 1.6 - 2 .6 mg/dL [facility] No Panel Informationon 01-17 Interpretation and review of laboratory results Abnormal [facility] PT,INR,PTTon 01-17-2024 aPTT Coag (PPP) [Time] 29.9 s [facility] INR Coag (Bld) [Relative time] 1.1 {INR} 0.9 - 1.1 [facility] Interpretation and review of laboratory results Abnormal [facility] PT Coag (PPP) [Time] 14.5 s High [facility] aPTT Coag (Bld) [Time] 29.9 s Normal 24.0-34.3 [facility] Comment on above: Performed By: #### P TPTT ####[facility] (DEFAULT)[address] [place] [address] INR Coag (PPP) [Relative time] 1.1 {INR} Normal 0.9-1.1 [facility] Comment on above: Performed By: #### P TPTT ####[facility] (DEFAULT)[address] [place] [address] PT Coag (PPP) [Time] 14.5 s High 11.9-14.2 [facility] Comment on above: Performed By: #### P TPTT ####[facility] (DEFAULT)[address] [place] [address] B-TYPE NATRIURETIC PEPTIDE ( BRAIN)on 01-16-2024 Interpretation and review of laboratory results Abnormal [facility] Natriuretic peptide B (Bld) [Mass/Vol] 212 pg/mL High 0 - 100 pg/mL [facility] Natriuretic peptide B (Bld) [Mass/Vol] 212 pg/mL High 0-100 [facility] Comment on above: Performed By: #### B SYNTHETIC FILAMENT SPINNER ####[facility] (DEFAULT)[address] [place] [address] CALCIUMon 01-16-2024 Calcium [Mass/Vol] 8.5 mg/dL Low 8.6-10.5 [facility] Comment on above: Performed By: #### C A, CHM7, IPB, MGO, HFP ####[facility] (DEFAULT)[address] [place] [address] Calcium [Mass/Vol] 8.5 mg/dL Low 8.6 - 10. 5 mg/dL [facility] DARYL AURIS SCREEN BY PCRo n 01-16-2024 Daryl auris Screen by PCR Not detected Normal Not Detected [facility] Comment on above: Order Comment: This test was performed using a real-time PCR assay. This test was developed, and its performance characteristics determined by [facility]. It has not been cleared or approved by the FDA. The laboratory is regulated under CLIA as qualified to perform high-complexity testing. This test is used for clinical purposes. It should not be regarded as investigational or for research. Performed By: #### C ANDIDA AURIS SCREEN BY PCR ####[facility] (DEFAULT)[address] [place] [address] CBC AND ELECTRONIC DIFFon Abs Baso Auto < Normal 0.00-0.09 [facility] Comment on above: Performed By: #### L [id number] ####[facility] (DEFAULT)[address] [place] [address] Basophils/100 WBC (Bld) 0.6 % Normal [facility] Comment on above: Performed By: #### L [id number] ####[facility] (DEFAULT)[address] [facility] [place] [address] DIFF STATUS Electronic Differential Normal [facility] Comment on above: Performed By: #### L [id number] ####[facility] (DEFAULT)[address] [facility] [place] [address] Eosinophils (Bld) [#/Vol] 0.09 10*3/uL Normal 0.00-0.48 [facility] Comment on above: Performed By: #### L AB980 ####[facility] (DEFAULT)[address] [facility] [place] [address] Eosinophils/100 WBC (Bld) 2.5 % Normal [facility] Comment on above: Performed By: #### L AB980 ####[facility] (DEFAULT)[address] [facility] [place] [address] Hematocrit (Bld) [Volume fraction] 37.4 % Low 39.6-48.8 [facility] Comment on above: Performed By: #### L [id number] ####[facility] (DEFAULT)[address] [facility] [place] [address] Hemoglobin (Bld) [Mass/Vol] 12.1 g/dL Low 13.4-16.8 [facility] Comment on above: Performed By: #### L AB980 ####[facility] (DEFAULT)[address] [facility] [place] [address] Immature Grans % 0.3 % Normal [facility] Comment on above: Performed By: #### L [id number] ####[facility] (DEFAULT)[address] [place], [place] [address], [place] [address] Immature Grans Absolute < Normal <=0.07 [facility] Comment on above: Performed By: #### L [id number] ####[facility] (DEFAULT)[address] [facility] [place] [place] [address] Lymphocytes (Bld) [#/Vol] 1.16 10*3/uL Normal 0.83-3.57 [facility] Comment on above: Performed By: #### L AB980 ####[facility] (DEFAULT)[address] [facility] [place] [place] [address] Lymphocytes/100 WBC (Bld) 32.0 % Normal [facility] Comment on above: Performed By: #### L [id number] ####[facility] (DEFAULT)[address] [facility] [place] [place] [address] MCV (RBC) [Entitic vol] 87.8 fL Normal 79.0-94.5 [facility] Comment on above: Performed By: #### L AB980 ####[facility] (DEFAULT)[address] [facility] [place] [address] Mean Cell Hgb 28.4 pg Normal 26.1-33.3 [facility] Comment on above: Performed By: #### L AB980 ####[facility] (DEFAULT)[address] [facility] [place] [address] Mean Cell Hgb Conc 32.4 g/dL Normal 31.9-36.5 [facility] Comment on above: Performed By: #### L [id number] ####[facility] (DEFAULT)[address] [facility] [place] [address] Monocytes (Bld) [#/Vol] 0.43 10*3/uL Normal 0.24-0.93 [facility] Comment on above: Performed By: #### L [id number] ####[facility] (DEFAULT)[address] [facility] [place] [address] Monocytes/100 WBC (Bld) 11.9 % Normal [facility] Comment on above: Performed By: #### L [id number] ####[facility] (DEFAULT)[address] [facility] [place] [address] Nucleated RBC 0.0 /100 WBC Normal <=0.2 [facility] Comment on above: Performed By: #### L [id number] ####[facility] (DEFAULT)[address] [place] [address] Platelet mean volume (Bld) [Entitic vol] 10.1 fL Normal 8.7-12.3 [facility] Comment on above: Performed By: #### L [id number] ####[facility] (DEFAULT)[address] [place] [address] Platelets (Bld) [#/Vol] 155 10*3/uL Normal 146-337 [facility] Comment on above: Performed By: #### L [id number] ####[facility] (DEFAULT)[address] [facility] [place] [address] RBC (Bld) [#/Vol] 4.26 10*6/uL Low 4.38-5.83 [facility] Comment on above: Performed By: #### L [id number] ####[facility] (DEFAULT)[address] [facility] [place] [place] [address] RBC Distribution 14.0 % Normal 10.9-14.3 [facility] Comment on above: Performed By: #### L [id number] ####[facility] (DEFAULT)[address] [facility] [place] [place] [address] Segs + Bands Auto 52.7 % Normal [facility] Comment on above: Performed By: #### L [id number] ####[facility] (DEFAULT)[address] [facility] [place] [place] [address] Segs + Bands,Absolute Auto 1.91 K/uL Normal 1.57-6.19 [facility] Comment on above: Performed By: #### L [id number] ####[facility] (DEFAULT)[address] [facility] [place] [place] [address] WBC (Bld) [#/Vol] 3.62 10*3/uL Low 3.73-10.10 [facility] Comment on above: Performed By: #### L [id number] ####[facility] (DEFAULT)[address] [facility] [place] [place] [address] Basophils (Bld) [#/Vol] K/uL 0.00 - 0.09 K/uL [facility] Basophils/100 WBC (Bld) 0.6 % [facility] Differential cell count method Nom (Bld) Electronic Differential [facility] Eosinophils (Bld) [#/Vol] 0.09 10*3/uL 0.00 - 0.48 K/uL [facility] Eosinophils/100 WBC (Bld) 2.5 % [facility] Erythrocyte distribution width (RBC) [Ratio] 14.0 % 10.9 - 14.3 % [facility] Hematocrit (Bld) [Volume fraction] 37.4 % Low 39.6 - 48.8 % [facility] Hemoglobin (Bld) [Mass/Vol] 12.1 g/dL Low 13.4 - 16.8 g/dL [facility] Immature granulocytes (Bld) [#/Vol] K/uL NINF - 0.07 K/uL [facility] Immature granulocytes/100 WBC (Bld) 0.3 % [facility] Interpretation and review of laboratory results Abnormal [facility] Lymphocytes (Bld) [#/Vol] 1.16 10*3/uL 0.83 - 3.57 K/uL [facility] Lymphocytes/100 WBC (Bld) 32.0 % [facility] MCH (RBC) [Entitic mass] 28.4 pg 26.1 - 33.3 pg [facility] MCHC (RBC) [Mass/Vol] 32.4 g/dL 31.9 - 36.5 g/dL [facility] MCV (RBC) [Entitic vol] 87.8 fL 79.0 - 94.5 fL [facility] Monocytes (Bld) [#/Vol] 0.43 10*3/uL 0.24 - 0.93 K/uL [facility] Monocytes/100 WBC (Bld) 11.9 % [facility] Neutrophils (Bld) [#/Vol] 1.91 10*3/uL 1.57 - 6.19 K/uL [facility] Nucleated RBC/100 WBC (Bld) [Ratio] 0.0 % NINF [facility] Platelet mean volume (Bld) [Entitic vol] 10.1 fL 8.7 - 12.3 fL [facility] Platelets (Bld) [#/Vol] 155 10*3/uL 146 - 337 K/uL [facility] RBC (Bld) [#/Vol] 4.26 10*6/uL Low [facility] Segmented neutrophils/100 WBC (Bld) 52.7 % [facility] WBC (Bld) [#/Vol] 3.62 10*3/uL Low 3.73 - 10. 10 K/uL [facility] CHEM 7 (LYTES,BUN,CREA,GLUC) on 01-16-2024 Anion gap [Moles/Vol] 11 mmol/L Normal 7-17 [facility] Comment on above: Performed By: #### C A, CHM7, IPB, MGO, HFP ####[facility] (DEFAULT)[address] [facility] [place] [address] Chloride [Moles/Vol] 108 mmol/L Normal 98-108 [facility] Comment on above: Performed By: #### C A, CHM7, IPB, MGO, HFP ####[facility] (DEFAULT)[address] [facility] [place] [address] CO2 [Moles/Vol] 24 mmol/L Normal 21-31 [facility] Comment on above: Performed By: #### C A, CHM7, IPB, MGO, HFP ####[facility] (DEFAULT)[address] [facility] [place] [address] Creatinine [Mass/Vol] 1.04 mg/dL Normal 0.70-1.30 [facility] Comment on above: Performed By: #### C A, CHM7, IPB, MGO, HFP ####[facility] (DEFAULT)[address] [place] [address] GFR/1.73 sq M.predicted among non-blacks MDRD (S/P/Bld) [Vol rate/Area] 86 mL/min/{1.73_m2} Normal >=60 [facility] Comment on above: Result Comment: Repo rted eGFR is based on the CKD-EPI 2020 equation using creatinine, age, and sex. Performed By: #### C Tray, CHM7, IPB, MGO, HFP ####[facility] (DEFAULT)[address] [facility] [place] [address] Glucose [Mass/Vol] 95 mg/dL Normal 70-99 [facility] Comment on above: Performed By: #### Chinedu Feliz, CHM7, IPB, MGO, HFP ####[facility] (DEFAULT)[address] [address] Osmolality [Osmolality] 293 mosm/kg Normal 278-305 [facility] Comment on above: Performed By: #### Chinedu Feliz, CHM7, IPB, MGO, HFP ####[facility] (DEFAULT)[address] [place] [address] Potassium [Moles/Vol] 4.0 mmol/L Normal 3.5-5.0 [facility] Comment on above: Performed By: #### C Tray, CHM7, IPB, MGO, HFP ####[facility] (DEFAULT)[address] [address] Sodium [Moles/Vol] 139 mmol/L Normal 135-145 [facility] Comment on above: Performed By: #### C Tray, CHM7, IPB, MGO, HFP ####[facility] (DEFAULT)[address] [place] [address] Urea nitrogen [Mass/Vol] 19 mg/dL Normal 7-25 [facility] Comment on above: Performed By: #### C A, CHM7, IPB, MGO, HFP ####[facility] (DEFAULT)[address] [facility] [place] [address] Urea nitrogen/Creatinine [Mass ratio] 18 mg/mg Normal [facility] Comment on above: Performed By: #### C A, CHM7, IPB, MGO, HFP ####[facility] (DEFAULT)[address] [facility] [place] [address] Anion gap [Moles/Vol] 11 mmol/L 7 - 17 mmol/L [facility] Chloride [Moles/Vol] 108 mmol/L 98 - 10 8 mmol/L [facility] CO2 [Moles/Vol] 24 mmol/L 21 - 31 mmol/L [facility] Creatinine [Mass/Vol] 1.04 mg/dL 0.70 - 1.30 mg/dL [facility] eGFR, CKD-EPI, Male 86 - PINF [facility] Comment on above: Reported eGFR is bas ed on the CKD-EPI 2020 equation using creatinine, age, and sex. Glucose [Mass/Vol] 95 mg/dL 70 - 99 mg/dL [facility] Osmolality Calc [Osmolality] 293 [facility] Potassium [Moles/Vol] 4.0 mmol/L 3.5 - 5.0 mmol/L [facility] Sodium [Moles/Vol] 139 mmol/L 135 - 145 mmol/L [facility] Urea nitrogen [Mass/Vol] 19 mg/dL 7 - 25 mg/dL [facility] Urea nitrogen/Creatinine [Mass ratio] 18 mg/mg [facility] D-DIMER,QUANTITATIVEon 01-16 D-Dimer, High Sensitivity 0.67 mcg/mL FEU High <0.50 [facility] Comment on above: Result Comment: The D-Dimer assay is intended for use in conjuction with a clinical pretest probability (PTP) assessment model to exclude pulmonary embolism (PE) and as an aid in the diagnosis of Deep Vein Thrombosis (DVT) in outpatients suspected of PE or DVT. For the assay in use at [facility] ([facility]), a cutoff of <0.50 mcg/mL has a Negative Predictive Value of 99.7% for exclusion of DVT in low and moderate PTP patients. Performed By: #### P TPTT, HSDDI ####[facility] (DEFAULT)[address] [facility] [place] [address] D-DIMER,QUANTITATIVEOrdered By: Shaji Kelly on 01-16-2024 Fibrin D-dimer FEU (PPP) [Mass/Vol] 0.67 High [facility] Comment on above: The D-Dimer assay is intended for use in conjuction with a clinical pretest probability (PTP) assessment model to exclude pulmonary embolism (PE) and as an aid in the diagnosis of Deep Vein Thrombosis (DVT) in outpatients suspected of PE or DVT. For the assay in use at [facility] ([facility]), a cutoff of <0.50 mcg/mL has a Negative Predictive Value of 99.7% for exclusion of DVT in low and moderate PTP patients. Interpretation and review of laboratory results Abnormal [facility] HEPATIC FUNCTION PANELon Albumin [Mass/Vol] 3.7 g/dL Normal 3.5-5.0 [facility] Comment on above: Performed By: #### C Tray, CHM7, IPB, MGO, HFP ####[facility] (DEFAULT)[address] [place] [address] ALP [Catalytic activity/Vol] 70 U/L Normal 32-126 [facility] Comment on above: Performed By: #### C Tray, CHM7, IPB, MGO, HFP ####[facility] (DEFAULT)[address] [facility] [place] [address] ALT [Catalytic activity/Vol] 8 U/L Low 10-52 [facility] Comment on above: Performed By: #### C A, CHM7, IPB, MGO, HFP ####[facility] (DEFAULT)[address] [facility] [place] [address] AST [Catalytic activity/Vol] 21 U/L Normal 10-39 [facility] Comment on above: Performed By: #### C A, CHM7, IPB, MGO, HFP ####[facility] (DEFAULT)[address] [place] [address] Bilirubin [Mass/Vol] 1.9 mg/dL High <1.5 [facility] Comment on above: Performed By: #### C A, CHM7, IPB, MGO, HFP ####[facility] (DEFAULT)[address] [place] [address] Bilirubin.indirect [Mass/Vol] 0.4 mg/dL High <0.3 [facility] Comment on above: Performed By: #### C Tray, CHM7, IPB, MGO, HFP ####[facility] (DEFAULT)[address] [place] [address] Protein [Mass/Vol] 6.1 g/dL Low 6.4-8.3 [facility] Comment on above: Performed By: #### C A, CHM7, IPB, MGO, HFP ####[facility] (DEFAULT)[address] [place] [address] Albumin [Mass/Vol] 3.7 g/dL 3.5 - 5.0 g/dL [facility] ALP [Catalytic activity/Vol] 70 U/L 32 - 126 U/L [facility] ALT [Catalytic activity/Vol] 8 U/L Low 10 - 52 U/L [facility] AST [Catalytic activity/Vol] 21 U/L 10 - 39 U/L [facility] Bilirubin [Mass/Vol] 1.9 mg/dL High NINF - 1.5 mg/dL [facility] Bilirubin.direct [Mass/Vol] 0.4 mg/dL High NINF - 0.3 mg/dL [facility] Protein [Mass/Vol] 6.1 g/dL Low 6.4 - 8.3 g/dL [facility] MAGNESIUMon 01-16-2024 Magnesium [Mass/Vol] 1.7 mg/dL Normal 1.6-2.6 [facility] Comment on above: Performed By: #### C A, CHM7, IPB, MGO, HFP ####[facility] (DEFAULT)[address] [place] [address] Magnesium [Mass/Vol] 1.7 mg/dL 1.6 - 2 .6 mg/dL [facility] No Panel Informationon 01-16 Interpretation and review of laboratory results Abnormal [facility] Interpretation and review of laboratory results Normal [facility] PHOSPHATE, INORGANICon 01-16 Phosphorous 4.1 mg/dL Normal 2.2-4.6 [facility] Comment on above: Performed By: #### C Tray, CHM7, IPB, MGO, HFP ####[facility] (DEFAULT)[address] [facility] [place] [address] Phosphate [Mass/Vol] 4.1 mg/dL 2.2 - 4 .6 mg/dL [facility] PT,INR,PTTon 01-16-2024 aPTT Coag (Bld) [Time] 29.6 s Normal 24.0-34.3 [facility] Comment on above: Performed By: #### P TPTT, HSDDI ####[facility] (DEFAULT)[address] [facility] [place] [address] INR Coag (PPP) [Relative time] 1.2 {INR} High 0.9-1.1 [facility] Comment on above: Performed By: #### P TPTT, HSDDI ####[facility] (DEFAULT)[address] [place] [address] PT Coag (PPP) [Time] 14.9 s High 11.9-14.2 [facility] Comment on above: Performed By: #### P TPTT, HSDDI ####[facility] (DEFAULT)[address] [place] [address] aPTT Coag (PPP) [Time] 29.6 s [facility] INR Coag (Bld) [Relative time] 1.2 {INR} High 0.9 - 1.1 [facility] Interpretation and review of laboratory results Abnormal [facility] PT Coag (PPP) [Time] 14.9 s High [facility] TACROLIMUS LEVEL, TROUGH (DC E DRUG LEVEL)Ordered By: Jimy Castillo on 01-16-2024 Interpretation and review of laboratory results Normal [facility] Tacrolimus (Bld) [Mass/Vol] 5.7 ng/mL Bone Marrow Transplant: 4.0-12.0, Therapeutic: 5.0-15.0 [facility] Method performed is a chemiluminescent microparticle immunoasssay on the [employer] i2000. The range is based on experience at [facility] and users should be aware that target concentrations vary widely depending on concomitant therapy, time post-transplant, and desired degree of immunosuppression. [facility] TACROLIMUS LEVEL, TROUGH (DC E DRUG LEVEL)on 01-16-2024 Tacrolimus, Trough 5.7 ng/mL Normal Bone Susana ow Transplant: 4.0-12.0, Therapeutic: 5.0-15.0 [facility] Comment on above: Order Comment: Pleas e draw at specified interval PRIOR to dose. Do not hold dose to wait for level. Specimens batched twice per day, (M-F) and once per day weekendsMethod performed is a chemiluminescent microparticle immunoasssay on the [employer] i2000.The range is based on experience at [facility] and users should be aware that target concentrations vary widely depending on concomitant therapy, time post-transplant, and desired degree of immunosuppression. Performed By: #### T ACRO ####[facility] (DEFAULT)[address] [place] [address] US ABDOMEN LIVER DOPPLERon 0 01-16-2024 US ABDOMEN LIVER DOPPLER Normal [facility] US.doppler Abdominal vessels on 01-16-2024 IMPRESSION: 1. Patent liver transplant vasculature. 2. Liver transplant is mildly heterogeneous in echotexture with surface nodularity, correlate clinically for any evidence of cirrhosis. Indeterminate left lobe subcapsular hyperechoic foci. If clinically indicated, these could be further evaluated with a liver protocol MRI. 3. At least moderate right pleural effusion. Trace right upper quadrant ascites. OLOGY EXAM: US ABDOMEN SILVIA ER DOPPLER, 01/16/2024 07:12 AM CLINICAL INDICATIONS: live transplant eval with new LE edema and SOB, r/o portal HTN COMPARISON: CT abdomen pelvis dated August 31, 2023 TECHNIQUE: Multiple longitudinal and transverse real-time heaton scale survey images of the liver were obtained. The portal veins, hepatic arteries, hepatic veins, splenic vein, and inferior vena cava were evaluated using color flow Doppler and spectral waveform analysis. FINDINGS: Portal Vein: Main, left and right portal veins have normal spectral waveforms and flow direction. Flow velocity is 27 cm/sec, which is normal. Hepatic Arteries: Main, left and right hepatic arteries show normal spectral waveforms. Hepatic Veins: Right, middle and left hepatic veins have normal spectral waveforms and flow direction. Inferior Vena Cava: The inferior vena cava is unremarkable. Splenic Vein: Not well-visualized. Liver: Liver transplant parenchyma is slightly heterogeneous. There is surface nodularity. There are are multiple subcapsular hyperechoic ovoid foci in the left lobe, for example measuring 1.7 x 0.9 x 1.5 cm. Other: At least moderate right pleural effusion. Trace right upper quadrant ascites. RADIOLOGY Iona Duran MD - 01/16/2024 EXAM: US ABDOMEN LIVER DOPPLER, 01/16/2024 07:12 AM CLINICAL INDICATIONS: live transplant eval with new LE edema and SOB, r/o portal HTN COMPARISON: CT abdomen pelvis dated August 31, 2023 TECHNIQUE: Multiple longitudinal and transverse real-time heaton scale survey images of the liver were obtained. The portal veins, hepatic arteries, hepatic veins, splenic vein, and inferior vena cava were evaluated using color flow Doppler and spectral waveform analysis. FINDINGS: Portal Vein: Main, left and right portal veins have normal spectral waveforms and flow direction. Flow velocity is 27 cm/sec, which is normal. Hepatic Arteries: Main, left and right hepatic arteries show normal spectral waveforms. Hepatic Veins: Right, middle and left hepatic veins have normal spectral waveforms and flow direction. Inferior Vena Cava: The inferior vena cava is unremarkable. Splenic Vein: Not well-visualized. Liver: Liver transplant parenchyma is slightly heterogeneous. There is surface nodularity. There are are multiple subcapsular hyperechoic ovoid foci in the left lobe, for example measuring 1.7 x 0.9 x 1.5 cm. Other: At least moderate right pleural effusion. Trace right upper quadrant ascites. IMPRESSION IMPRESSION: 1. Patent liver transplant vasculature. 2. Liver transplant is mildly heterogeneous in echotexture with surface nodularity, correlate clinically for any evidence of cirrhosis. Indeterminate left lobe subcapsular hyperechoic foci. If clinically indicated, these could be further evaluated with a liver protocol MRI. 3. At least moderate right pleural effusion. Trace right upper quadrant ascites. [facility] Radiology Study observation (narrative) [facility] Ab[facility] vessels Ordered By: Iona Duran on 01-16-2024 [facility] Work Phone: XR CHEST PA AND LATERAL 2 EWSon 01-16-2024 XR CHEST PA AND LATERAL 2 VIEWS Normal [facility] XR Chest PA and Lateralon IMPRESSION: Moderate right pleural effusion. OLOGY EXAM: XR CHEST PA AN D LATERAL 2 VIEWS, 01/16/2024 12:34 PM COMPARISON: September 04, 2023 CLINICAL INDICATIONS: evaluate R pleural effusion and opacity RELEVANT CLINICAL HISTORY: FINDINGS: (Adequate technique) Implanted Devices: None Lungs: Clear, without mass, interstitial disease, or consolidation. Pleural Spaces: Moderate right effusion. No pneumothorax. Mediastinum and Susan: Normal Cardiac silhouette and great vessels: Cardiomegaly. Unremarkable aorta. Chest Wall: Normal RADIOLOGY Daisha Patterson M D - 01/16/2024 EXAM: XR CHEST PA AND LATERAL 2 VIEWS, 01/16/2024 12:34 PM COMPARISON: September 04, 2023 CLINICAL INDICATIONS: evaluate R pleural effusion and opacity RELEVANT CLINICAL HISTORY: FINDINGS: (Adequate technique) Implanted Devices: None Lungs: Clear, without mass, interstitial disease, or consolidation. Pleural Spaces: Moderate right effusion. No pneumothorax. Mediastinum and Susan: Normal Cardiac silhouette and great vessels: Cardiomegaly. Unremarkable aorta. Chest Wall: Normal IMPRESSION IMPRESSION: Moderate right pleural effusion. [facility] Radiology Study observation (narrative) [facility] XR Chest PA and LateralOrder ed By: Daisha Patterson on 01-16-2024 [facility] Work Phone: ALL CBC WITH AUTO DIFFon BASOPHILS ABSOLUTE AUTO 0.0 [facility] Basophils/100 WBC (Bld) 0.5 % 0.2 - 2.0 % [facility] Eosinophils/100 WBC (Bld) 2.8 % 0.9 - 7.0 % [facility] Erythrocyte distribution width (RBC) [Ratio] 13.8 % 11.0 - 15.0 % [facility] Hematocrit (Bld) [Volume fraction] 43.7 % 42.0 - 54.0 % [facility] Hemoglobin (Bld) [Mass/Vol] 14.0 g/dL 14.0 - 18.0 g/dL [facility] IMMATURE GRANULOCYTES ABS AUTO 0.01 [facility] Immature granulocytes/100 WBC (Bld) 0.3 % 0.0 - 0.5 % [facility] LYMPHOCYTES ABSOLUTE AUTO 1.5 [facility] Lymphocytes/100 WBC (Bld) 37.5 % 20.5 - 60.0 % [facility] MCH (RBC) [Entitic mass] 28.4 pg 25.9 - 34.0 pg [facility] MCHC (RBC) [Mass/Vol] 32.0 g/dL 29.9 - 35.2 g/dL [facility] MCV (RBC) [Entitic vol] 88.6 fL 80.0 - 94.0 fL [facility] MONOCYTES ABSOLUTE [facility]O [facility] Monocytes/100 WBC (Bld) 11.9 % 1.7 - 12.0 % [facility] NEUTROPHILS ABSOLUTE AUTO 1.9 [facility] Neutrophils/100 WBC (Bld) 47.0 % 43.0 - 75.0 % [facility] Platelet mean volume (Bld) [Entitic vol] 10.3 fL 9.5 - 13.5 fL [facility] TBH EO # 0.1 [facility] PLT 180 [facility] TB RBC 4.93 [facility] WBC 4.0 [facility]INISYNC [facility] ALL CBC WITH AUTO DIFFon BASOPHILS ABSOLUTE AUTO 0.0 [facility] Basophils/100 WBC (Bld) 0.5 % 0.2 - 2.0 % [facility] Eosinophils/100 WBC (Bld) 2.6 % 0.9 - 7.0 % [facility] Erythrocyte distribution width (RBC) [Ratio] 13.5 % 11.0 - 15.0 % [facility] Hematocrit (Bld) [Volume fraction] 43.8 % 42.0 - 54.0 % [facility] Hemoglobin (Bld) [Mass/Vol] 14.0 g/dL 14.0 - 18.0 g/dL [facility] IMMATURE GRANULOCYTES ABS AUTO 0.00 [facility] Immature granulocytes/100 WBC (Bld) 0.0 % 0.0 - 0.5 % [facility] Interpretation and review of laboratory results Abnormal [facility] LYMPHOCYTES ABSOLUTE AUTO 1.8 [facility] Lymphocytes/100 WBC (Bld) 45.2 % 20.5 - 60.0 % [facility] MCH (RBC) [Entitic mass] 27.9 pg 25.9 - 34.0 pg [facility] MCHC (RBC) [Mass/Vol] 32.0 g/dL 29.9 - 35.2 g/dL [facility] MCV (RBC) [Entitic vol] 87.4 fL 80.0 - 94.0 fL [facility] MONOCYTES ABSOLUTE AUTO 0.4 [facility] Monocytes/100 WBC (Bld) 9.6 % 1.7 - 12.0 % [facility] NEUTROPHILS ABSOLUTE AUTO 1.6 [facility] Neutrophils/100 WBC (Bld) 42.1 % Low 43.0 - 75.0 % [facility] Platelet mean volume (Bld) [Entitic vol] 9.8 fL 9.5 - 13.5 fL [facility].1 [facility] [address]T [address] [facility] RBC 5.01 [facility] WBC 3.9 Low [facility] CHEM 7 (LYTES,BUN,CREA,GLUC) on 09-11-2023 Anion gap [Moles/Vol] 13 mmol/L Normal 7-17 [facility] Comment on above: Performed By: #### TJ RAMÍREZ7 ####[facility] (DEFAULT)[address] [place] [address] Chloride [Moles/Vol] 111 mmol/L High 98-108 [facility] Comment on above: Performed By: #### TJ RAMÍREZ7 ####[facility] (DEFAULT)[address] [facility] [place] [address] CO2 [Moles/Vol] 20 mmol/L Low 21-31 [facility] [facility] Comment on above: Performed By: #### TJ RAMÍREZ7 ####[facility] (DEFAULT)[address] [facility] [place] [place] [address] Creatinine [Mass/Vol] 1.13 mg/dL Normal 0.70-1.30 [facility] Comment on above: Performed By: #### TJ RAMÍREZ7 ####[facility] (DEFAULT)[address] [facility] [place] [address] GFR/1.73 sq M.predicted among non-blacks MDRD (S/P/Bld) [Vol rate/Area] 78 mL/min/{1.73_m2} Normal >=60 [facility] Comment on above: Result Comment: Repo rted eGFR is based on the CKD-EPI 2020 equation using creatinine, age, and sex. Performed By: #### NATHANIEL RAMÍREZ ####[facility] (DEFAULT)[address] [facility] [place] [place] [address] Glucose [Mass/Vol] 109 mg/dL High 70-99 [facility] Comment on above: Performed By: #### TJ RAMÍREZ7 ####[facility] (DEFAULT)[address] [facility] [place] [address] Osmolality [Osmolality] 295 mosm/kg Normal 278-305 [facility] Comment on above: Performed By: #### TJ RAMÍREZ7 ####[facility] (DEFAULT)[address] [place] [address] Potassium [Moles/Vol] 4.3 mmol/L Normal 3.5-5.0 [facility] Comment on above: Performed By: #### Rod BLOOM CHM7 ####[facility] (DEFAULT)[address] [place] [address] Sodium [Moles/Vol] 140 mmol/L Normal 135-145 [facility] Comment on above: Performed By: #### Rod BLOOM CHM7 ####[facility] (DEFAULT)[address] [facility] [place] [address] Urea nitrogen [Mass/Vol] 16 mg/dL Normal 7-25 [facility] Comment on above: Performed By: #### Rod BLOOM CHM7 ####[facility] (DEFAULT)[address] [facility] [place] [address] Urea nitrogen/Creatinine [Mass ratio] 14 mg/mg Normal [facility] Comment on above: Performed By: #### Rod BLOOM CHM7 ####[facility] (DEFAULT)[address] [facility] [place] [address] Anion gap [Moles/Vol] 13 mmol/L 7 - 17 mmol/L [facility] Chloride [Moles/Vol] 111 mmol/L High 98 - 10 8 mmol/L [facility] CO2 [Moles/Vol] 20 mmol/L Low 21 - 31 mmol/L [facility] Creatinine [Mass/Vol] 1.13 mg/dL 0.70 - 1.30 mg/dL [facility] eGFR, CKD-EPI, Male 79 - PINF [facility] Glucose [Mass/Vol] 109 mg/dL High 70 - 99 mg/dL [facility] Interpretation and review of laboratory results Abnormal [facility] Osmolality Calc [Osmolality] 295 [facility] Potassium [Moles/Vol] 4.3 mmol/L 3.5 - 5.0 mmol/L [facility] Sodium [Moles/Vol] 140 mmol/L 135 - 145 mmol/L [facility] Urea nitrogen [Mass/Vol] 16 mg/dL 7 - 25 mg/dL [facility] Urea nitrogen/Creatinine [Mass ratio] 14 mg/mg [facility] GLUCOSE POCon 09-11-2023 Glucose [Mass/Vol] 108 mg/dL High 70 - 99 mg/dL [facility] Interpretation and review of laboratory results Abnormal [facility] POC Sample Type CAPBL [facility] Legionella sp identified Org specific cx Nom (Unsp spec)on 09-11-2023 Bacteria identified Cx Nom (Unsp spec) NO GROWTH DAY 7 OF 7 [facility] MAGNESIUMon 09-11-2023 Magnesium [Mass/Vol] 1.6 mg/dL Normal 1.6-2.6 [facility] Comment on above: Performed By: #### M MERLE [facility] ####[facility] (DEFAULT)[address] [place] [address] Interpretation and review of laboratory results Normal [facility] Magnesium [Mass/Vol] 1.6 mg/dL 1.6 - 2 .6 mg/dL [facility] No Panel Informationon 09-11 [facility] TACROLIMUS LEVEL, TROUGH (DC E DRUG LEVEL)on 09-11-2023 Interpretation and review of laboratory results Normal [facility] Tacrolimus (Bld) [Mass/Vol] 11.5 ng/mL [facility] Tacrolimus, Trough 11.5 ng/mL Normal [facility] ow Transplant: 4.0-12.0, Therapeutic: 5.0-15.0 [facility] Comment on above: Order Comment: Pleas e draw at specified interval PRIOR to dose. Do not hold dose to wait for level. Specimens batched twice per day, (M-F) and once per day weekendsMethod performed is a chemiluminescent microparticle immunoasssay on the [employer] i2000.The range is based on experience at [facility] and users should be aware that target concentrations vary widely depending on concomitant therapy, time post-transplant, and desired degree of immunosuppression. Performed By: #### T ACRO ####[facility] (DEFAULT)[address] [place] [address] CBC,PLATELETSon 09-10-2023 Hematocrit (Bld) [Volume fraction] 40.0 % Normal 39.6-48.8 [facility] Comment on above: Performed By: #### H EMOGC ####[facility] (DEFAULT)[address] [facility] [place] [place] [address] Hemoglobin (Bld) [Mass/Vol] 12.7 g/dL Low 13.4-16.8 [facility] Comment on above: Performed By: #### H EMOGC ####[facility] (DEFAULT)[address] [facility] [place] [place] [address] MCV (RBC) [Entitic vol] 86.0 fL Normal 79.0-94.5 [facility] Comment on above: Performed By: #### H EMOGC ####[facility] (DEFAULT)[address] [facility] [place] [address] Mean Cell Hgb 27.3 pg Normal 26.1-33.3 [facility] Comment on above: Performed By: #### H EMOGC ####[facility] (DEFAULT)[address] [facility] [place] [place] [address] Mean Cell Hgb Conc 31.8 g/dL Low 31.9-36.5 [facility] Comment on above: Performed By: #### H EMOGC ####[facility] (DEFAULT)[address] [facility] [place] [address] Platelet mean volume (Bld) [Entitic vol] 9.5 fL Normal 8.7-12.3 [facility] Comment on above: Performed By: #### H EMOGC ####[facility] (DEFAULT)[address] [facility] [place] [place] [address] Platelets (Bld) [#/Vol] 225 10*3/uL Normal 146-337 [facility] Comment on above: Performed By: #### H EMO ####[facility] (DEFAULT)[address] [facility] [place] [place] [address] RBC (Bld) [#/Vol] 4.65 10*6/uL Normal 4.38-5.83 [facility] Comment on above: Performed By: #### H EMO ####[facility] (DEFAULT)[address] [facility] [place] [address] RBC Distribution 13.9 % Normal 10.9-14.3 [facility] Comment on above: Performed By: #### H EMO ####[facility] (DEFAULT)[address] [facility] [place] [address] WBC (Bld) [#/Vol] 6.52 10*3/uL Normal 3.73-10.10 [facility] Comment on above: Performed By: #### H [facility] ####[facility] (DEFAULT)[address] [facility] [place] [address] Erythrocyte distribution width (RBC) [Ratio] 13.9 % 10.9 - 14.3 % [facility] Hematocrit (Bld) [Volume fraction] 40.0 % 39.6 - 48.8 % [facility] Hemoglobin (Bld) [Mass/Vol] 12.7 g/dL Low 13.4 - 16.8 g/dL [facility] Interpretation and review of laboratory results Abnormal [facility] MCH (RBC) [Entitic mass] 27.3 pg 26.1 - 33.3 pg [facility] MCHC (RBC) [Mass/Vol] 31.8 g/dL Low 31.9 - 36.5 g/dL [facility] MCV (RBC) [Entitic vol] 86.0 fL 79.0 - 94.5 fL [facility] Platelet mean volume (Bld) [Entitic vol] 9.5 fL 8.7 - 12.3 fL [facility] Platelets (Bld) [#/Vol] 225 10*3/uL 146 - 337 K/uL [facility] RBC (Bld) [#/Vol] 4.65 10*6/uL [facility] WBC (Bld) [#/Vol] 6.52 10*3/uL 3.73 - 10. 10 K/uL [facility] CHEM 7 (LYTES,BUN,CREA,GLUC) on 09-10-2023 Anion gap [Moles/Vol] 13 mmol/L Normal 7-17 [facility] Comment on above: Performed By: #### NATHANIEL RAMÍREZ, HFP ####[facility] (DEFAULT)[address] [facility] [place] [address] Chloride [Moles/Vol] 111 mmol/L High 98-108 [facility] Comment on above: Performed By: #### NATHANIEL RAMÍREZ, HFP ####[facility] (DEFAULT)[address] [facility] [place] [address] CO2 [Moles/Vol] 20 mmol/L Low 21-31 [facility] Comment on above: Performed By: #### TJ RAMÍREZ7, HFP ####[facility] (DEFAULT)[address] [facility] [place] [address] Creatinine [Mass/Vol] 1.27 mg/dL Normal 0.70-1.30 [facility] Comment on above: Performed By: #### TJ RAMÍREZ7, HFP ####[facility] (DEFAULT)[address] [place] [address] GFR/1.73 sq M.predicted among non-blacks MDRD (S/P/Bld) [Vol rate/Area] 68 mL/min/{1.73_m2} Normal >=60 [facility] Comment on above: Result Comment: Repo rted eGFR is based on the CKD-EPI 2020 equation using creatinine, age, and sex. Performed By: #### NATHANIEL RAMÍREZ, HFP ####[facility] (DEFAULT)[address] [place] [address] Glucose [Mass/Vol] 100 mg/dL High 70-99 [facility] Comment on above: Performed By: #### NATHANIEL RAMÍREZ, HFP ####[facility] (DEFAULT)[address] [place] [address] Osmolality [Osmolality] 293 mosm/kg Normal 278-305 [facility] Comment on above: Performed By: #### NATHANIEL RAMÍREZ, HFP ####[facility] (DEFAULT)[address] [place] [address] Potassium [Moles/Vol] 4.4 mmol/L Normal 3.5-5.0 [facility] Comment on above: Performed By: #### NATHANIEL RAMÍREZ, HFP ####[facility] (DEFAULT)[address] [place] [address] Sodium [Moles/Vol] 140 mmol/L Normal 135-145 [facility] Comment on above: Performed By: #### NATHANIEL RAMÍREZ, HFP ####[facility] (DEFAULT)[address] [place] [address] Urea nitrogen [Mass/Vol] 12 mg/dL Normal 7-25 [facility] Comment on above: Performed By: #### NATHANIEL RAMÍREZ, HFP ####[facility] (DEFAULT)[address] [place] [address] Urea nitrogen/Creatinine [Mass ratio] 9 mg/mg Normal [facility] Comment on above: Performed By: #### NATHANIEL RAMÍREZ, HFP ####[facility] (DEFAULT)[address] [place] [address] Anion gap [Moles/Vol] 13 mmol/L 7 - 17 mmol/L [facility] Chloride [Moles/Vol] 111 mmol/L High 98 - 10 8 mmol/L [facility] CO2 [Moles/Vol] 20 mmol/L Low 21 - 31 mmol/L [facility] Creatinine [Mass/Vol] 1.27 mg/dL 0.70 - 1.30 mg/dL [facility] eGFR, CKD-EPI, Male 69 - PINF [facility] Glucose [Mass/Vol] 100 mg/dL High 70 - 99 mg/dL [facility] Osmolality Calc [Osmolality] 293 [facility] Potassium [Moles/Vol] 4.4 mmol/L 3.5 - 5.0 mmol/L [facility] Sodium [Moles/Vol] 140 mmol/L 135 - 145 mmol/L [facility] Urea nitrogen [Mass/Vol] 12 mg/dL 7 - 25 mg/dL [facility] Urea nitrogen/Creatinine [Mass ratio] 9 mg/mg [facility] HEPATIC FUNCTION PANELon Albumin [Mass/Vol] 3.3 g/dL Low 3.5-5.0 [facility] Comment on above: Performed By: #### NATHANIEL RAMÍREZ, HFP ####[facility] (DEFAULT)[address] [place] [address] ALP [Catalytic activity/Vol] 143 U/L High 32-126 [facility] Comment on above: Performed By: #### NATHANIEL RAMÍREZ, HFP ####[facility] (DEFAULT)[address] [place] [address] ALT [Catalytic activity/Vol] 28 U/L Normal 10-52 [facility] Comment on above: Performed By: #### NATHANIEL RAMÍREZ, HFP ####[facility] (DEFAULT)[address] [place] [address] AST [Catalytic activity/Vol] 29 U/L Normal 10-39 [facility] Comment on above: Performed By: #### NATHANIEL RAMÍREZ, HFP ####[facility] (DEFAULT)[address] [place] [address] Bilirubin [Mass/Vol] 0.9 mg/dL Normal <1.5 [facility] Comment on above: Performed By: #### M NATHANIEL BLOOM, HFP ####[facility] (DEFAULT)[address] [place] [address] Bilirubin.indirect [Mass/Vol] 0.2 mg/dL Normal <0.3 [facility] Comment on above: Performed By: #### M NATHANIEL BLOOM, HFP ####[facility] (DEFAULT)[address] [facility] [place] [address] Protein [Mass/Vol] 6.8 g/dL Normal 6.4-8.3 [facility] Comment on above: Performed By: #### NATHANIEL RAMÍREZ, HFP ####[facility] (DEFAULT)[address] [facility] [place] [address] Albumin [Mass/Vol] 3.3 g/dL Low 3.5 - 5.0 g/dL [facility] ALP [Catalytic activity/Vol] 143 U/L High 32 - 126 U/L [facility] ALT [Catalytic activity/Vol] 28 U/L 10 - 52 U/L [facility] AST [Catalytic activity/Vol] 29 U/L 10 - 39 U/L [facility] Bilirubin [Mass/Vol] 0.9 mg/dL NINF - 1.5 mg/dL [facility] Bilirubin.direct [Mass/Vol] 0.2 mg/dL NINF - 0.3 mg/dL [facility] Protein [Mass/Vol] 6.8 g/dL 6.4 - 8.3 g/dL [facility] MAGNESIUMon 09-10-2023 Magnesium [Mass/Vol] 1.9 mg/dL Normal 1.6-2.6 [facility] Comment on above: Performed By: #### M NATHANIEL BLOOM, HFP ####[facility] (DEFAULT)[address] [place] [address] Interpretation and review of laboratory results Normal [facility] Magnesium [Mass/Vol] 1.9 mg/dL 1.6 - 2 .6 mg/dL [facility] No Panel Informationon 09-10 Interpretation and review of laboratory results Abnormal [facility] TACROLIMUS LEVEL, TROUGH (DC E DRUG LEVEL)Ordered By: Jimy Castillo on 09-10-2023 Interpretation and review of laboratory results Normal [facility] Tacrolimus (Bld) [Mass/Vol] 11.8 ng/mL [facility] TACROLIMUS LEVEL, TROUGH (DC E DRUG LEVEL)on 09-10-2023 Tacrolimus, Trough 11.8 ng/mL Normal [facility] Transplant: 4.0-12.0, Therapeutic: 5.0-15.0 [facility] Comment on above: Order Comment: Pleas e draw at specified interval PRIOR to dose. Do not hold dose to wait for level. Specimens batched twice per day, (M-F) and once per day weekendsMethod performed is a chemiluminescent microparticle immunoasssay on the [employer] i2000.The range is based on experience at [facility] and users should be aware that target concentrations vary widely depending on concomitant therapy, time post-transplant, and desired degree of immunosuppression. Performed By: #### T ACRO ####[facility] (DEFAULT)[address] [place] [id number] CHEM 7 (LYTES,BUN,CREA,GLUC) on 09-09-2023 Anion gap [Moles/Vol] 14 mmol/L Normal 7-17 [facility] Comment on above: Performed By: #### M JO ANN BLOOM CHM7 ####[facility] (DEFAULT)[address] [place] [address] Chloride [Moles/Vol] 113 mmol/L High 98-108 [facility] Comment on above: Performed By: #### M JO ANN BLOOM CHM7 ####[facility] (DEFAULT)[address] [facility] [place] [place] [address] CO2 [Moles/Vol] 18 mmol/L Low 21-31 [facility] Comment on above: Performed By: #### JO ANN RAMÍREZ CHM7 ####[facility] (DEFAULT)[address] [place] [address] Creatinine [Mass/Vol] 1.03 mg/dL Normal 0.70-1.30 [facility] Comment on above: Performed By: #### JO ANN RAMÍREZ CHM7 ####[facility] (DEFAULT)[address] [facility] [place] [place] [address] GFR/1.73 sq M.predicted among non-blacks MDRD (S/P/Bld) [Vol rate/Area] 87 mL/min/{1.73_m2} Normal >=60 [facility] Comment on above: Result Comment: Repo rted eGFR is based on the CKD-EPI 2020 equation using creatinine, age, and sex. Performed By: #### JO ANN RAMÍREZ CHM7 ####[facility] (DEFAULT)[address] [facility] [place] [place] [address] Glucose [Mass/Vol] 106 mg/dL High 70-99 [facility] Comment on above: Performed By: #### JO ANN RAMÍREZ CHM7 ####[facility] (DEFAULT)[address] [facility] [place] [address] Osmolality [Osmolality] 294 mosm/kg Normal 278-305 [facility] Comment on above: Performed By: #### JO ANN RAMÍREZ CHM7 ####[facility] (DEFAULT)[address] [facility] [place] [place] [address] Potassium [Moles/Vol] 4.0 mmol/L Normal 3.5-5.0 [facility] Comment on above: Performed By: #### JO ANN RAMÍREZ, CHM7 ####[facility] (DEFAULT)[address] [facility] [place] [place] [address] Sodium [Moles/Vol] 141 mmol/L Normal 135-145 [facility] Comment on above: Performed By: #### M JO ANN BLOOM CHM7 ####[facility] (DEFAULT)[address] [facility] [place] [address] Urea nitrogen [Mass/Vol] 10 mg/dL Normal 7-25 [facility] Comment on above: Performed By: #### JO ANN RAMÍREZ CHM7 ####[facility] (DEFAULT)[address] [facility] [place] [address] Urea nitrogen/Creatinine [Mass ratio] 10 mg/mg Normal [facility] Comment on above: Performed By: #### JO ANN RAMÍREZ CHM7 ####[facility] (DEFAULT)[address] [facility] [place] [address] Anion gap [Moles/Vol] 14 mmol/L 7 - 17 mmol/L [facility] Chloride [Moles/Vol] 113 mmol/L High 98 - 10 8 mmol/L [facility] CO2 [Moles/Vol] 18 mmol/L Low 21 - 31 mmol/L [facility] Creatinine [Mass/Vol] 1.03 mg/dL 0.70 - 1.30 mg/dL [facility] eGFR, CKD-EPI, Male 87 - PINF [facility] Glucose [Mass/Vol] 106 mg/dL High 70 - 99 mg/dL [facility] Interpretation and review of laboratory results Abnormal [facility] Osmolality Calc [Osmolality] 294 [facility] Potassium [Moles/Vol] 4.0 mmol/L 3.5 - 5.0 mmol/L [facility] Sodium [Moles/Vol] 141 mmol/L 135 - 145 mmol/L [facility] Urea nitrogen [Mass/Vol] 10 mg/dL 7 - 25 mg/dL [facility] Urea nitrogen/Creatinine [Mass ratio] 10 mg/mg [facility] MAGNESIUMon 09-09-2023 Magnesium [Mass/Vol] 1.6 mg/dL Normal 1.6-2.6 [facility] Comment on above: Performed By: #### M JO ANN BLOOM CHM7 ####[facility] (DEFAULT)[address] [facility] [place] [address] Magnesium [Mass/Vol] 1.6 mg/dL 1.6 - 2 .6 mg/dL [facility] No Panel Informationon 09-09 Interpretation and review of laboratory results Normal [facility] PHOSPHATE, INORGANICon 09-09 Phosphorous 3.8 mg/dL Normal 2.2-4.6 [facility] Comment on above: Performed By: #### M JO ANN BLOMO CHM7 ####[facility] (DEFAULT)[address] [facility] [place] [address] Phosphate [Mass/Vol] 3.8 mg/dL 2.2 - 4 .6 mg/dL [facility] TACROLIMUS LEVEL, TROUGH (DC E DRUG LEVEL)on 09-09-2023 Interpretation and review of laboratory results Normal [facility] Tacrolimus (Bld) [Mass/Vol] 9.2 ng/mL [facility] Tacrolimus, Trough 9.2 ng/mL Normal [facility] ow Transplant: 4.0-12.0, Therapeutic: 5.0-15.0 [facility] Comment on above: Order Comment: Pleas e draw at specified interval PRIOR to dose. Do not hold dose to wait for level. Specimens batched twice per day, (M-F) and once per day weekendsMethod performed is a chemiluminescent microparticle immunoasssay on the [employer] i2000.The range is based on experience at [facility] and users should be aware that target concentrations vary widely depending on concomitant therapy, time post-transplant, and desired degree of immunosuppression. Performed By: #### T ACRO ####[facility] (DEFAULT)[address] [facility] [place] [address] CBC,PLATELETSon 09-08-2023 Hematocrit (Bld) [Volume fraction] 36.1 % Low 39.6-48.8 [facility] Comment on above: Performed By: #### H EMOGC ####[facility] (DEFAULT)[address] [facility] [place] [place] [address] Hemoglobin (Bld) [Mass/Vol] 11.6 g/dL Low 13.4-16.8 [facility] Comment on above: Performed By: #### H EMOGC ####[facility] (DEFAULT)[address] [facility] [place] [place] [address] MCV (RBC) [Entitic vol] 85.1 fL Normal 79.0-94.5 [facility] Comment on above: Performed By: #### H EMOGC ####[facility] (DEFAULT)[address] [facility] [place] [place] [address] Mean Cell Hgb 27.4 pg Normal 26.1-33.3 [facility] Comment on above: Performed By: #### H EMOGC ####[facility] (DEFAULT)[address] [facility] [place] [place] [address] Mean Cell Hgb Conc 32.1 g/dL Normal 31.9-36.5 [facility] Comment on above: Performed By: #### H EMOGC ####[facility] (DEFAULT)[address] [facility] [place] [address] Platelet mean volume (Bld) [Entitic vol] 9.5 fL Normal 8.7-12.3 [facility] Comment on above: Performed By: #### H EMOGC ####[facility] (DEFAULT)[address] [facility] [place] [address] Platelets (Bld) [#/Vol] 182 10*3/uL Normal 146-337 [facility] Comment on above: Performed By: #### H EMOGC ####[facility] (DEFAULT)[address] [facility] [place] [address] RBC (Bld) [#/Vol] 4.24 10*6/uL Low 4.38-5.83 [facility] Comment on above: Performed By: #### H [facility] ####[facility] (DEFAULT)[address] [place] [address] RBC Distribution 13.6 % Normal 10.9-14.3 [facility] Comment on above: Performed By: #### H [facility] ####[facility] (DEFAULT)[address] [place] [address] WBC (Bld) [#/Vol] 4.59 10*3/uL Normal 3.73-10.10 [facility] Comment on above: Performed By: #### H [facility] ####[facility] (DEFAULT)[address] [place] [address] Erythrocyte distribution width (RBC) [Ratio] 13.6 % 10.9 - 14.3 % [facility] Hematocrit (Bld) [Volume fraction] 36.1 % Low 39.6 - 48.8 % [facility] Hemoglobin (Bld) [Mass/Vol] 11.6 g/dL Low 13.4 - 16.8 g/dL [facility] Interpretation and review of laboratory results Abnormal [facility] MCH (RBC) [Entitic mass] 27.4 pg 26.1 - 33.3 pg [facility] MCHC (RBC) [Mass/Vol] 32.1 g/dL 31.9 - 36.5 g/dL [facility] MCV (RBC) [Entitic vol] 85.1 fL 79.0 - 94.5 fL [facility] Platelet mean volume (Bld) [Entitic vol] 9.5 fL 8.7 - 12.3 fL [facility] Platelets (Bld) [#/Vol] 182 10*3/uL 146 - 337 K/uL [facility] RBC (Bld) [#/Vol] 4.24 10*6/uL Low [facility] WBC (Bld) [#/Vol] 4.59 10*3/uL 3.73 - 10. 10 K/uL [facility] CHEM 7 (LYTES,BUN,CREA,GLUC) on 09-08-2023 Anion gap [Moles/Vol] 12 mmol/L Normal 7-17 [facility] Comment on above: Performed By: #### M GO, IPB, HFP, CHM7 ####[facility] (DEFAULT)[address] [facility] [place] [address] Chloride [Moles/Vol] 113 mmol/L High 98-108 [facility] Comment on above: Performed By: #### M GO, IPB, HFP, CHM7 ####[facility] (DEFAULT)[address] [facility] [place] [address] CO2 [Moles/Vol] 21 mmol/L Normal 21-31 [facility] Comment on above: Performed By: #### M GO, IPB, HFP, CHM7 ####[facility] (DEFAULT)[address] [facility] [place] [address] Creatinine [Mass/Vol] 1.14 mg/dL Normal 0.70-1.30 [facility] Comment on above: Performed By: #### M GO, IPB, HFP, CHM7 ####[facility] (DEFAULT)[address] [facility] [place] [address] GFR/1.73 sq M.predicted among non-blacks MDRD (S/P/Bld) [Vol rate/Area] 77 mL/min/{1.73_m2} Normal >=60 [facility] Comment on above: Result Comment: Repo rted eGFR is based on the CKD-EPI 2020 equation using creatinine, age, and sex. Performed By: #### M GO, IPB, HFP, CHM7 ####[facility] (DEFAULT)[address] [facility] [place] [address] Glucose [Mass/Vol] 107 mg/dL High 70-99 [facility] Comment on above: Performed By: #### M GO, IPB, HFP, CHM7 ####[facility] (DEFAULT)[address] [place] [address] Osmolality [Osmolality] 296 mosm/kg Normal 278-305 [facility] Comment on above: Performed By: #### M MERLE, IPB, HFP, CHM7 ####[facility] (DEFAULT)[address] [place] [address] Potassium [Moles/Vol] 3.9 mmol/L Normal 3.5-5.0 [facility] Comment on above: Performed By: #### M MERLE, IPB, HFP, CHM7 ####[facility] (DEFAULT)[address] [place] [address] Sodium [Moles/Vol] 142 mmol/L Normal 135-145 [facility] Comment on above: Performed By: #### Rod BLOOM IPB, HFP, CHM7 ####[facility] (DEFAULT)[address] [place] [address] Urea nitrogen [Mass/Vol] 11 mg/dL Normal 7-25 [facility] Comment on above: Performed By: #### Rod BLOOM IPB, HFP, CHM7 ####[facility] (DEFAULT)[address] [place] [address] Urea nitrogen/Creatinine [Mass ratio] 10 mg/mg Normal [facility] Comment on above: Performed By: #### M MERLE IPB, HFP, CHM7 ####[facility] (DEFAULT)[address] [place] [address] Anion gap [Moles/Vol] 12 mmol/L 7 - 17 mmol/L [facility] Chloride [Moles/Vol] 113 mmol/L High 98 - 10 8 mmol/L [facility] CO2 [Moles/Vol] 21 mmol/L 21 - 31 mmol/L [facility] Creatinine [Mass/Vol] 1.14 mg/dL 0.70 - 1.30 mg/dL [facility] eGFR, CKD-EPI, Male 77 - PINF [facility] Glucose [Mass/Vol] 107 mg/dL High 70 - 99 mg/dL [facility] Osmolality Calc [Osmolality] 296 [facility] Potassium [Moles/Vol] 3.9 mmol/L 3.5 - 5.0 mmol/L [facility] Sodium [Moles/Vol] 142 mmol/L 135 - 145 mmol/L [facility] Urea nitrogen [Mass/Vol] 11 mg/dL 7 - 25 mg/dL [facility] Urea nitrogen/Creatinine [Mass ratio] 10 mg/mg [facility] HEPATIC FUNCTION PANELon Albumin [Mass/Vol] 2.9 g/dL Low 3.5-5.0 [facility] Comment on above: Performed By: #### M MERLE, IPB, HFP, CHM7 ####[facility] (DEFAULT)[address] [facility] [place] [address] ALP [Catalytic activity/Vol] 133 U/L High 32-126 [facility] Comment on above: Performed By: #### M GO, IPB, HFP, CHM7 ####[facility] (DEFAULT)[address] [facility] [place] [address] ALT [Catalytic activity/Vol] 23 U/L Normal 10-52 [facility] Comment on above: Performed By: #### M GO, IPB, HFP, CHM7 ####[facility] (DEFAULT)[address] [facility] [place] [address] AST [Catalytic activity/Vol] 23 U/L Normal 10-39 [facility] Comment on above: Performed By: #### M GO, IPB, HFP, CHM7 ####[facility] (DEFAULT)[address] [facility] [place] [address] Bilirubin [Mass/Vol] 0.8 mg/dL Normal <1.5 [facility] Comment on above: Performed By: #### M GO, IPB, HFP, CHM7 ####[facility] (DEFAULT)[address] [facility] [place] [address] Bilirubin.indirect [Mass/Vol] 0.2 mg/dL Normal <0.3 [facility] Comment on above: Performed By: #### M JO ANN BLOOM, HFP, CHM7 ####[facility] (DEFAULT)[address] [facility] [place] [address] Protein [Mass/Vol] 5.9 g/dL Low 6.4-8.3 [facility] Comment on above: Performed By: #### M JO ANN BLOOM, HFP, CHM7 ####[facility] (DEFAULT)[address] [facility] [place] [address] Albumin [Mass/Vol] 2.9 g/dL Low 3.5 - 5.0 g/dL [facility] ALP [Catalytic activity/Vol] 133 U/L High 32 - 126 U/L [facility] ALT [Catalytic activity/Vol] 23 U/L 10 - 52 U/L [facility] AST [Catalytic activity/Vol] 23 U/L 10 - 39 U/L [facility] Bilirubin [Mass/Vol] 0.8 mg/dL NINF - 1.5 mg/dL [facility] Bilirubin.direct [Mass/Vol] 0.2 mg/dL NINF - 0.3 mg/dL [facility] Protein [Mass/Vol] 5.9 g/dL Low 6.4 - 8.3 g/dL [facility] MAGNESIUMon 09-08-2023 Magnesium [Mass/Vol] 1.8 mg/dL Normal 1.6-2.6 [facility] Comment on above: Performed By: #### M JO ANN BLOOM, HFP, CHM7 ####[facility] (DEFAULT)[address] [facility] [place] [address] Interpretation and review of laboratory results Normal [facility] Magnesium [Mass/Vol] 1.8 mg/dL 1.6 - 2 .6 mg/dL [facility] No Panel Informationon 09-08 Interpretation and review of laboratory results Abnormal [facility] PHOSPHATE, INORGANICon 09-08 Interpretation and review of laboratory results Normal [facility] Phosphate [Mass/Vol] 4.1 mg/dL 2.2 - 4 .6 mg/dL [facility] Phosphorous 4.1 mg/dL Normal 2.2-4.6 [facility] Comment on above: Performed By: #### M GO, IPB, HFP, CHM7 ####[facility] (DEFAULT)[address] [place] [address] TACROLIMUS LEVEL, TROUGH (DC E DRUG LEVEL)on 09-08-2023 Interpretation and review of laboratory results Normal [facility] Tacrolimus (Bld) [Mass/Vol] 8.5 ng/mL [facility] Tacrolimus, Trough 8.5 ng/mL Normal Bone [place] ow Transplant: 4.0-12.0, Therapeutic: 5.0-15.0 [facility] Comment on above: Order Comment: Pleas e draw at specified interval PRIOR to dose. Do not hold dose to wait for level. Specimens batched twice per day, (M-F) and once per day weekendsMethod performed is a chemiluminescent microparticle immunoasssay on the [employer] i2000.The range is based on experience at [facility] and users should be aware that target concentrations vary widely depending on concomitant therapy, time post-transplant, and desired degree of immunosuppression. Performed By: #### T ACRO ####[facility] (DEFAULT)[address] [place] [address] CBC,PLATELETSon 09-07-2023 Hematocrit (Bld) [Volume fraction] 37.1 % Low 39.6-48.8 [facility] Comment on above: Performed By: #### H EMOGC ####[facility] (DEFAULT)[address] [facility] [place] [address] Hemoglobin (Bld) [Mass/Vol] 11.9 g/dL Low 13.4-16.8 [facility] Comment on above: Performed By: #### H EMOGC ####[facility] (DEFAULT)[address] [place] [address] MCV (RBC) [Entitic vol] 86.5 fL Normal 79.0-94.5 [facility] Comment on above: Performed By: #### H EMOGC ####[facility] (DEFAULT)[address] [facility] [place] [address] Mean Cell Hgb 27.7 pg Normal 26.1-33.3 [facility] Comment on above: Performed By: #### H EMOGC ####[facility] (DEFAULT)[address] [facility] [place] [address] Mean Cell Hgb Conc 32.1 g/dL Normal 31.9-36.5 [facility] Comment on above: Performed By: #### H EMOGC ####[facility] (DEFAULT)[address] [facility] [place] [address] Platelet mean volume (Bld) [Entitic vol] 9.6 fL Normal 8.7-12.3 [facility] Comment on above: Performed By: #### H EMOGC ####[facility] (DEFAULT)[address] [place] [address] Platelets (Bld) [#/Vol] 176 10*3/uL Normal 146-337 [facility] Comment on above: Performed By: #### H EMOGC ####[facility] (DEFAULT)[address] [place] [address] RBC (Bld) [#/Vol] 4.29 10*6/uL Low 4.38-5.83 [facility] Comment on above: Performed By: #### H EMOGC ####[facility] (DEFAULT)[address] [facility] [place] [address] RBC Distribution 13.5 % Normal 10.9-14.3 [facility] Comment on above: Performed By: #### H [facility] ####[facility] (DEFAULT)[address] [place] [address] WBC (Bld) [#/Vol] 4.10 10*3/uL Normal 3.73-10.10 [facility] Comment on above: Performed By: #### H [facility] ####[facility] (DEFAULT)[address] [place] [address] Erythrocyte distribution width (RBC) [Ratio] 13.5 % 10.9 - 14.3 % [facility] Hematocrit (Bld) [Volume fraction] 37.1 % Low 39.6 - 48.8 % [facility] Hemoglobin (Bld) [Mass/Vol] 11.9 g/dL Low 13.4 - 16.8 g/dL [facility] Interpretation and review of laboratory results Abnormal [facility] MCH (RBC) [Entitic mass] 27.7 pg 26.1 - 33.3 pg [facility] MCHC (RBC) [Mass/Vol] 32.1 g/dL 31.9 - 36.5 g/dL [facility] MCV (RBC) [Entitic vol] 86.5 fL 79.0 - 94.5 fL [facility] Platelet mean volume (Bld) [Entitic vol] 9.6 fL 8.7 - 12.3 fL [facility] Platelets (Bld) [#/Vol] 176 10*3/uL 146 - 337 K/uL [facility] RBC (Bld) [#/Vol] 4.29 10*6/uL Low [facility] WBC (Bld) [#/Vol] 4.10 10*3/uL 3.73 - 10. 10 K/uL [facility] CHEM 7 (LYTES,BUN,CREA,GLUC) on 09-07-2023 Anion gap [Moles/Vol] 13 mmol/L Normal 7-17 [facility] Comment on above: Performed By: #### C HM7, IPB, MGO, HFP ####[facility] (DEFAULT)[address] [place] [address] Chloride [Moles/Vol] 113 mmol/L High 98-108 [facility] Comment on above: Performed By: #### C HM7, IPB, MGO, HFP ####[facility] (DEFAULT)[address] [place] [address] CO2 [Moles/Vol] 19 mmol/L Low 21-31 [facility] Comment on above: Performed By: #### C HM7, IPB, MGO, HFP ####[facility] (DEFAULT)[address] [facility] [place] [place] [address] Creatinine [Mass/Vol] 1.22 mg/dL Normal 0.70-1.30 [facility] Comment on above: Performed By: #### C HM7, IPB, MGO, HFP ####[facility] (DEFAULT)[address] [facility] [place] [address] GFR/1.73 sq M.predicted among non-blacks MDRD (S/P/Bld) [Vol rate/Area] 71 mL/min/{1.73_m2} Normal >=60 [facility] Comment on above: Result Comment: Repo rted eGFR is based on the CKD-EPI 2020 equation using creatinine, age, and sex. Performed By: #### C HM7, IPB, MGO, HFP ####[facility] (DEFAULT)[address] [facility] [place] [address] Glucose [Mass/Vol] 107 mg/dL High 70-99 [facility] Comment on above: Performed By: #### C HM7, IPB, MGO, HFP ####[facility] (DEFAULT)[address] [facility] [place] [place] [address] Osmolality [Osmolality] 295 mosm/kg Normal 278-305 [facility] Comment on above: Performed By: #### C HM7, IPB, MGO, HFP ####[facility] (DEFAULT)[address] [place] [address] Potassium [Moles/Vol] 3.9 mmol/L Normal 3.5-5.0 [facility] Comment on above: Performed By: #### C HM7, IPB, MGO, HFP ####[facility] (DEFAULT)[address] [place] [address] Sodium [Moles/Vol] 141 mmol/L Normal 135-145 [facility] Comment on above: Performed By: #### C HM7, IPB, MGO, HFP ####[facility] (DEFAULT)[address] [place] [address] Urea nitrogen [Mass/Vol] 13 mg/dL Normal 7-25 [facility] Comment on above: Performed By: #### C HM7, IPB, MGO, HFP ####[facility] (DEFAULT)[address] [facility] [place] [place] [address] Urea nitrogen/Creatinine [Mass ratio] 11 mg/mg Normal [facility] Comment on above: Performed By: #### C HM7, IPB, MGO, HFP ####[facility] (DEFAULT)[address] [facility] [place] [address] Anion gap [Moles/Vol] 13 mmol/L 7 - 17 mmol/L [facility] Chloride [Moles/Vol] 113 mmol/L High 98 - 10 8 mmol/L [facility] CO2 [Moles/Vol] 19 mmol/L Low 21 - 31 mmol/L [facility] Creatinine [Mass/Vol] 1.22 mg/dL 0.70 - 1.30 mg/dL [facility] eGFR, CKD-EPI, Male 72 - PINF [facility] Glucose [Mass/Vol] 107 mg/dL High 70 - 99 mg/dL [facility] Osmolality Calc [Osmolality] [facility] Potassium [Moles/Vol] 3.9 mmol/L 3.5 - 5.0 mmol/L [facility] Sodium [Moles/Vol] 141 mmol/L 135 - 145 mmol/L [facility] Urea nitrogen [Mass/Vol] 13 mg/dL 7 - 25 mg/dL [facility] Urea nitrogen/Creatinine [Mass ratio] 11 mg/mg [facility] HEPATIC FUNCTION PANELon Albumin [Mass/Vol] 2.9 g/dL Low 3.5-5.0 [facility] Comment on above: Performed By: #### C HM7, IPB, MGO, HFP ####[facility] (DEFAULT)[address] [place] [address] ALP [Catalytic activity/Vol] 111 U/L Normal 32-126 [facility] Comment on above: Performed By: #### C HM7, IPB, MGO, HFP ####[facility] (DEFAULT)[address] [place] [address] ALT [Catalytic activity/Vol] 18 U/L Normal 10-52 [facility] Comment on above: Performed By: #### C HM7, IPB, MGO, HFP ####[facility] (DEFAULT)[address] [place] [address] AST [Catalytic activity/Vol] 23 U/L Normal 10-39 [facility] Comment on above: Performed By: #### C HM7, IPB, MGO, HFP ####[facility] (DEFAULT)[address] [place] [address] Bilirubin [Mass/Vol] 0.8 mg/dL Normal <1.5 [facility] Comment on above: Performed By: #### C HM7, IPB, MGO, HFP ####[facility] (DEFAULT)[address] [place] [address] Bilirubin.indirect [Mass/Vol] 0.3 mg/dL High <0.3 [facility] Comment on above: Performed By: #### C HM7, IPB, MGO, HFP ####[facility] (DEFAULT)[address] [facility] [place] [address] Protein [Mass/Vol] 6.0 g/dL Low 6.4-8.3 [facility] Comment on above: Performed By: #### C HM7, IPB, MGO, HFP ####[facility] (DEFAULT)[address] [facility] [place] [address] Albumin [Mass/Vol] 2.9 g/dL Low 3.5 - 5.0 g/dL [facility] ALP [Catalytic activity/Vol] 111 U/L 32 - 126 U/L [facility] ALT [Catalytic activity/Vol] 18 U/L 10 - 52 U/L [facility] AST [Catalytic activity/Vol] 23 U/L 10 - 39 U/L [facility] Bilirubin [Mass/Vol] 0.8 mg/dL NINF - 1.5 mg/dL [facility] Bilirubin.direct [Mass/Vol] 0.3 mg/dL High NINF - 0.3 mg/dL [facility] Protein [Mass/Vol] 6.0 g/dL Low 6.4 - 8.3 g/dL [facility] MAGNESIUMon 09-07-2023 Magnesium [Mass/Vol] 1.7 mg/dL Normal 1.6-2.6 [facility] Comment on above: Performed By: #### C HM7, IPB, MGO, HFP ####[facility] (DEFAULT)[address] [place] [address] Interpretation and review of laboratory results Normal [facility] Magnesium [Mass/Vol] 1.7 mg/dL 1.6 - 2 .6 mg/dL [facility] No Panel Informationon 09-07 Interpretation and review of laboratory results Abnormal [facility] PHOSPHATE, INORGANICon 09-07 Phosphorous 4.4 mg/dL Normal 2.2-4.6 [facility] Comment on above: Performed By: #### C HM7, IPB, MGO, HFP ####[facility] (DEFAULT)[address] [place] [address] Interpretation and review of laboratory results Normal [facility] Phosphate [Mass/Vol] 4.4 mg/dL 2.2 - 4 .6 mg/dL [facility] TACROLIMUS LEVEL, TROUGH (DC E DRUG LEVEL)Ordered By: Elizabeth Maldonado on 09-07-2023 Interpretation and review of laboratory results Normal [facility] Tacrolimus (Bld) [Mass/Vol] 7.8 ng/mL [facility] TACROLIMUS LEVEL, TROUGH (DC E DRUG LEVEL)on 09-07-2023 Tacrolimus, Trough 7.8 ng/mL Normal Bone [place] ow Transplant: 4.0-12.0, Therapeutic: 5.0-15.0 [facility] Comment on above: Order Comment: Pleas e draw at specified interval PRIOR to dose. Do not hold dose to wait for level. Specimens batched twice per day, (M-F) and once per day weekendsMethod performed is a chemiluminescent microparticle immunoasssay on the [employer] i2000.The range is based on experience at [facility] and users should be aware that target concentrations vary widely depending on concomitant therapy, time post-transplant, and desired degree of immunosuppression. Performed By: #### T ACRO ####[facility] (DEFAULT)[address] [place] [address] CBC,PLATELETSon 09-06-2023 Hematocrit (Bld) [Volume fraction] 38.4 % Low 39.6-48.8 [facility] Comment on above: Performed By: #### H [facility] ####[facility] (DEFAULT)[address] [place] [address] Hemoglobin (Bld) [Mass/Vol] 11.9 g/dL Low 13.4-16.8 [facility] Comment on above: Performed By: #### H [facility] ####[facility] (DEFAULT)[address] [facility] [place] [address] MCV (RBC) [Entitic vol] 85.9 fL Normal 79.0-94.5 [facility] Comment on above: Performed By: #### H EMOGC ####[facility] (DEFAULT)[address] [facility] [place] [address] Mean Cell Hgb 26.6 pg Normal 26.1-33.3 [facility] Comment on above: Performed By: #### H EMOGC ####[facility] (DEFAULT)[address] [facility] [place] [address] Mean Cell Hgb Conc 31.0 g/dL Low 31.9-36.5 [facility] Comment on above: Performed By: #### H EMOGC ####[facility] (DEFAULT)[address] [facility] [place] [address] Platelet mean volume (Bld) [Entitic vol] 9.7 fL Normal 8.7-12.3 [facility] Comment on above: Performed By: #### H EMOGC ####[facility] (DEFAULT)[address] [facility] [place] [place] [address] Platelets (Bld) [#/Vol] 181 10*3/uL Normal 146-337 [facility] Comment on above: Performed By: #### H EMOGC ####[facility] (DEFAULT)[address] [facility] [place] [address] RBC (Bld) [#/Vol] 4.47 10*6/uL Normal 4.38-5.83 [facility] Comment on above: Performed By: #### H EMOGC ####[facility] (DEFAULT)[address] [facility] [place] [place] [address] RBC Distribution 13.4 % Normal 10.9-14.3 [facility] Comment on above: Performed By: #### H EMOGC ####[facility] (DEFAULT)[address] [place] [address] WBC (Bld) [#/Vol] 4.41 10*3/uL Normal 3.73-10.10 [facility] Comment on above: Performed By: #### H [facility] ####[facility] (DEFAULT)[address] [place] [address] Erythrocyte distribution width (RBC) [Ratio] 13.4 % 10.9 - 14.3 % [facility] Hematocrit (Bld) [Volume fraction] 38.4 % Low 39.6 - 48.8 % [facility] Hemoglobin (Bld) [Mass/Vol] 11.9 g/dL Low 13.4 - 16.8 g/dL [facility] Interpretation and review of laboratory results Abnormal [facility] MCH (RBC) [Entitic mass] 26.6 pg 26.1 - 33.3 pg [facility] MCHC (RBC) [Mass/Vol] 31.0 g/dL Low 31.9 - 36.5 g/dL [facility] MCV (RBC) [Entitic vol] 85.9 fL 79.0 - 94.5 fL [facility] Platelet mean volume (Bld) [Entitic vol] 9.7 fL 8.7 - 12.3 fL [facility] Platelets (Bld) [#/Vol] 181 10*3/uL 146 - 337 K/uL [facility] RBC (Bld) [#/Vol] 4.47 10*6/uL [facility] WBC (Bld) [#/Vol] 4.41 10*3/uL 3.73 - 10. 10 K/uL [facility] CHEM 7 (LYTES,BUN,CREA,GLUC) on 09-06-2023 Anion gap [Moles/Vol] 14 mmol/L 7 - 17 mmol/L [facility] Chloride [Moles/Vol] 109 mmol/L High 98 - 10 8 mmol/L [facility] CO2 [Moles/Vol] 19 mmol/L Low 21 - 31 mmol/L [facility] Creatinine [Mass/Vol] 1.26 mg/dL 0.70 - 1.30 mg/dL [facility] eGFR, CKD-EPI, Male 70 - PINF [facility] Glucose [Mass/Vol] 114 mg/dL High 70 - 99 mg/dL [facility] Osmolality Calc [Osmolality] [facility] Potassium [Moles/Vol] 4.1 mmol/L 3.5 - 5.0 mmol/L [facility] Sodium [Moles/Vol] 138 mmol/L 135 - 145 mmol/L [facility] Urea nitrogen [Mass/Vol] 16 mg/dL 7 - 25 mg/dL [facility] Urea nitrogen/Creatinine [Mass ratio] 13 mg/mg [facility] Anion gap [Moles/Vol] 14 mmol/L Normal 7-17 [facility] Comment on above: Performed By: #### NATHANIEL RAMÍREZ, HFP ####[facility] (DEFAULT)[address] [place] [address] Chloride [Moles/Vol] 109 mmol/L High 98-108 [facility] Comment on above: Performed By: #### NATHANIEL RAMÍREZ, HFP ####[facility] (DEFAULT)[address] [place] [address] CO2 [Moles/Vol] 19 mmol/L Low 21-31 [facility] Comment on above: Performed By: #### NATHANIEL RAMÍREZ, HFP ####[facility] (DEFAULT)[address] [facility] [place] [address] Creatinine [Mass/Vol] 1.26 mg/dL Normal 0.70-1.30 [facility] Comment on above: Performed By: #### NATHANIEL RAMÍREZ, HFP ####[facility] (DEFAULT)[address] [facility] [place] [address] GFR/1.73 sq M.predicted among non-blacks MDRD (S/P/Bld) [Vol rate/Area] 69 mL/min/{1.73_m2} Normal >=60 [facility] Comment on above: Result Comment: Repo rted eGFR is based on the CKD-EPI 2020 equation using creatinine, age, and sex. Performed By: #### NATHANIEL RAMÍREZ, HFP ####[facility] (DEFAULT)[address] [place] [address] Glucose [Mass/Vol] 114 mg/dL High 70-99 [facility] Comment on above: Performed By: #### NATHANIEL RAMÍREZ, HFP ####[facility] (DEFAULT)[address] [place] [address] Osmolality [Osmolality] 291 mosm/kg Normal 278-305 [facility] Comment on above: Performed By: #### NATHANIEL RAMÍREZ, HFP ####[facility] (DEFAULT)[address] [place] [address] Potassium [Moles/Vol] 4.1 mmol/L Normal 3.5-5.0 [facility] Comment on above: Performed By: #### NATHANIEL RAMÍREZ, HFP ####[facility] (DEFAULT)[address] [place] [address] Sodium [Moles/Vol] 138 mmol/L Normal 135-145 [facility] Comment on above: Performed By: #### NATHANIEL RAMÍREZ, HFP ####[facility] (DEFAULT)[address] [place] [address] Urea nitrogen [Mass/Vol] 16 mg/dL Normal 7-25 [facility] Comment on above: Performed By: #### NATHANIEL RAMÍREZ, HFP ####[facility] (DEFAULT)[address] [place] [address] Urea nitrogen/Creatinine [Mass ratio] 13 mg/mg Normal [facility] Comment on above: Performed By: #### NATHANIEL RAMÍREZ, HFP ####[facility] (DEFAULT)[address] [facility] [place] [address] HEPATIC FUNCTION PANELon Albumin [Mass/Vol] 3.0 g/dL Low 3.5 - 5.0 g/dL [facility] ALP [Catalytic activity/Vol] 115 U/L 32 - 126 U/L [facility] ALT [Catalytic activity/Vol] 25 U/L 10 - 52 U/L [facility] AST [Catalytic activity/Vol] 31 U/L 10 - 39 U/L [facility] Bilirubin [Mass/Vol] 1.0 mg/dL NINF - 1.5 mg/dL [facility] Bilirubin.direct [Mass/Vol] 0.3 mg/dL High NINF - 0.3 mg/dL [facility] Protein [Mass/Vol] 6.3 g/dL Low 6.4 - 8.3 g/dL [facility] Albumin [Mass/Vol] 3.0 g/dL Low 3.5-5.0 [facility] Comment on above: Performed By: #### M MERLE CHM7, HFP ####[facility] (DEFAULT)[address] [facility] [place] [place] [address] ALP [Catalytic activity/Vol] 115 U/L Normal 32-126 [facility] Comment on above: Performed By: #### M MERLE CHM7, HFP ####[facility] (DEFAULT)[address] [place] [address] ALT [Catalytic activity/Vol] 25 U/L Normal 10-52 [facility] Comment on above: Performed By: #### M GO, CHM7, HFP ####[facility] (DEFAULT)[address] [place] [address] AST [Catalytic activity/Vol] 31 U/L Normal 10-39 [facility] Comment on above: Performed By: #### M GO, CHM7, HFP ####[facility] (DEFAULT)[address] [place] [address] Bilirubin [Mass/Vol] 1.0 mg/dL Normal <1.5 [facility] Comment on above: Performed By: #### NATHANIEL RAMÍREZ, HFP ####[facility] (DEFAULT)[address] [facility] [place] [address] Bilirubin.indirect [Mass/Vol] 0.3 mg/dL High <0.3 [facility] Comment on above: Performed By: #### NATHANIEL RAMÍREZ, HFP ####[facility] (DEFAULT)[address] [facility] [place] [address] Protein [Mass/Vol] 6.3 g/dL Low 6.4-8.3 [facility] Comment on above: Performed By: #### NATHANIEL RAMÍREZ, HFP ####[facility] (DEFAULT)[address] [facility] [place] [address] MAGNESIUMon 09-06-2023 Interpretation and review of laboratory results Normal [facility] Magnesium [Mass/Vol] 2.0 mg/dL 1.6 - 2 .6 mg/dL [facility] Magnesium [Mass/Vol] 2.0 mg/dL Normal 1.6-2.6 [facility] Comment on above: Performed By: #### NATHANIEL RAMÍREZ, HFP ####[facility] (DEFAULT)[address] [facility] [place] [address] No Panel Informationon 09-06 Interpretation and review of laboratory results Abnormal [facility] TACROLIMUS LEVEL, TROUGH (DC E DRUG LEVEL)on 09-06-2023 Interpretation and review of laboratory results Normal [facility] Tacrolimus (Bld) [Mass/Vol] 6.7 ng/mL [facility] Tacrolimus, Trough 6.7 ng/mL Normal Bone Susana ow Transplant: 4.0-12.0, Therapeutic: 5.0-15.0 [facility] Comment on above: Order Comment: Pleas e draw at specified interval PRIOR to dose. Do not hold dose to wait for level. Specimens batched twice per day, (M-F) and once per day weekendsMethod performed is a chemiluminescent microparticle immunoasssay on the [employer] i2000.The range is based on experience at [facility] and users should be aware that target concentrations vary widely depending on concomitant therapy, time post-transplant, and desired degree of immunosuppression. Performed By: #### T ACRO ####[facility] (DEFAULT)[address] [facility] [place] [address] CBC,PLATELETSon 09-05-2023 Hematocrit (Bld) [Volume fraction] 35.6 % Low 39.6-48.8 [facility] Comment on above: Performed By: #### H EMOGC ####[facility] (DEFAULT)[address] [facility] [place] [address] Hemoglobin (Bld) [Mass/Vol] 11.4 g/dL Low 13.4-16.8 [facility] Comment on above: Performed By: #### H EMOGC ####[facility] (DEFAULT)[address] [facility] [place] [address] MCV (RBC) [Entitic vol] 86.0 fL Normal 79.0-94.5 [facility] Comment on above: Performed By: #### H EMOGC ####[facility] (DEFAULT)[address] [facility] [place] [address] Mean Cell Hgb 27.5 pg Normal 26.1-33.3 [facility] Comment on above: Performed By: #### H EMOGC ####[facility] (DEFAULT)[address] [facility] [place] [address] Mean Cell Hgb Conc 32.0 g/dL Normal 31.9-36.5 [facility] Comment on above: Performed By: #### H EMOGC ####[facility] (DEFAULT)[address] [facility] [place] [address] Platelet mean volume (Bld) [Entitic vol] 10.0 fL Normal 8.7-12.3 [facility] Comment on above: Performed By: #### H EMO ####[facility] (DEFAULT)[address] [facility] [place] [address] Platelets (Bld) [#/Vol] 170 10*3/uL Normal 146-337 [facility] Comment on above: Performed By: #### H EMO ####[facility] (DEFAULT)[address] [place] [address] RBC (Bld) [#/Vol] 4.14 10*6/uL Low 4.38-5.83 [facility] Comment on above: Performed By: #### H EMO ####[facility] (DEFAULT)[address] [facility] [place] [address] RBC Distribution 13.5 % Normal 10.9-14.3 [facility] Comment on above: Performed By: #### H EMOGC ####[facility] (DEFAULT)[address] [facility] [place] [address] WBC (Bld) [#/Vol] 4.24 10*3/uL Normal 3.73-10.10 [facility] Comment on above: Performed By: #### H EMO ####[facility] (DEFAULT)[address] [place] [address] Erythrocyte distribution width (RBC) [Ratio] 13.5 % 10.9 - 14.3 % [facility] Hematocrit (Bld) [Volume fraction] 35.6 % Low 39.6 - 48.8 % [facility] Hemoglobin (Bld) [Mass/Vol] 11.4 g/dL Low 13.4 - 16.8 g/dL [facility] Interpretation and review of laboratory results Abnormal [facility] MCH (RBC) [Entitic mass] 27.5 pg 26.1 - 33.3 pg [facility] MCHC (RBC) [Mass/Vol] 32.0 g/dL 31.9 - 36.5 g/dL [facility] MCV (RBC) [Entitic vol] 86.0 fL 79.0 - 94.5 fL [facility] Platelet mean volume (Bld) [Entitic vol] 10.0 fL 8.7 - 12.3 fL [facility] Platelets (Bld) [#/Vol] 170 10*3/uL 146 - 337 K/uL [facility] RBC (Bld) [#/Vol] 4.14 10*6/uL Low [facility] WBC (Bld) [#/Vol] 4.24 10*3/uL 3.73 - 10. 10 K/uL [facility] CHEM 7 (LYTES,BUN,CREA,GLUC) on 09-05-2023 Anion gap [Moles/Vol] 12 mmol/L Normal 7-17 [facility] Comment on above: Performed By: #### H FP, CHM7, MGO ####[facility] (DEFAULT)[address] [place] [address] Chloride [Moles/Vol] 107 mmol/L Normal 98-108 [facility] Comment on above: Performed By: #### H FP, CHM7, MGO ####[facility] (DEFAULT)[address] [place] [address] CO2 [Moles/Vol] 20 mmol/L Low 21-31 [facility] Comment on above: Performed By: #### H FP, CHM7, MGO ####[facility] (DEFAULT)[address] [place] [address] Creatinine [Mass/Vol] 1.43 mg/dL High 0.70-1.30 [facility] Comment on above: Performed By: #### H FP, CHM7, MGO ####[facility] (DEFAULT)[address] [place] [address] GFR/1.73 sq M.predicted among non-blacks MDRD (S/P/Bld) [Vol rate/Area] 59 mL/min/{1.73_m2} Low >=60 [facility] Comment on above: Result Comment: Repo rted eGFR is based on the CKD-EPI 2020 equation using creatinine, age, and sex. Performed By: #### H ANTWAN CHM7, MGO ####[facility] (DEFAULT)[address] [place] [address] Glucose [Mass/Vol] 111 mg/dL High 70-99 [facility] Comment on above: Performed By: #### H ANTWAN CHM7, MGO ####[facility] (DEFAULT)[address] [place] [address] Osmolality [Osmolality] 286 mosm/kg Normal 278-305 [facility] Comment on above: Performed By: #### H FP, CHM7, MGO ####[facility] (DEFAULT)[address] [place] [address] Potassium [Moles/Vol] 4.2 mmol/L Normal 3.5-5.0 [facility] Comment on above: Performed By: #### H ANTWAN, CHM7, MGO ####[facility] (DEFAULT)[address] [place] [address] Sodium [Moles/Vol] 135 mmol/L Normal 135-145 [facility] Comment on above: Performed By: #### H FP, CHM7, MGO ####[facility] (DEFAULT)[address] [place] [address] Urea nitrogen [Mass/Vol] 18 mg/dL Normal 7-25 [facility] Comment on above: Performed By: #### H FP, CHM7, MGO ####[facility] (DEFAULT)[address] [place] [address] Urea nitrogen/Creatinine [Mass ratio] 13 mg/mg Normal [facility] Comment on above: Performed By: #### H FP, CHM7, MGO ####[facility] (DEFAULT)[address] [place] [address] Anion gap [Moles/Vol] 12 mmol/L 7 - 17 mmol/L [facility] Chloride [Moles/Vol] 107 mmol/L 98 - 10 8 mmol/L [facility] CO2 [Moles/Vol] 20 mmol/L Low 21 - 31 mmol/L [facility] Creatinine [Mass/Vol] 1.43 mg/dL High 0.70 - 1.30 mg/dL [facility] eGFR, CKD-EPI, Male 60 Low - PINF [facility] Glucose [Mass/Vol] 111 mg/dL High 70 - 99 mg/dL [facility] Osmolality Calc [Osmolality] [facility] Potassium [Moles/Vol] 4.2 mmol/L 3.5 - 5.0 mmol/L [facility] Sodium [Moles/Vol] 135 mmol/L 135 - 145 mmol/L [facility] Urea nitrogen [Mass/Vol] 18 mg/dL 7 - 25 mg/dL [facility] Urea nitrogen/Creatinine [Mass ratio] 13 mg/mg [facility] CONTINUOUS CARDIAC MONITORIN G STRIPon 09-05-2023 [facility] HEPATIC FUNCTION PANELon Albumin [Mass/Vol] 2.8 g/dL Low 3.5-5.0 [facility] Comment on above: Performed By: #### H NATHANIEL MONCADA, MGO ####[facility] (DEFAULT)[address] [place] [address] ALP [Catalytic activity/Vol] 103 U/L Normal 32-126 [facility] Comment on above: Performed By: #### H NATHANIEL MONCADA, MGO ####[facility] (DEFAULT)[address] [place] [address] ALT [Catalytic activity/Vol] 26 U/L Normal 10-52 [facility] Comment on above: Performed By: #### H ANTWAN CHM7, MGO ####[facility] (DEFAULT)[address] [place] [address] AST [Catalytic activity/Vol] 38 U/L Normal 10-39 [facility] Comment on above: Performed By: #### H FP, CHM7, MGO ####[facility] (DEFAULT)[address] [place] [address] Bilirubin [Mass/Vol] 0.9 mg/dL Normal <1.5 [facility] Comment on above: Performed By: #### H FP, CHM7, MGO ####[facility] (DEFAULT)[address] [place] [address] Bilirubin.indirect [Mass/Vol] 0.1 mg/dL Normal <0.3 [facility] Comment on above: Performed By: #### H FP, CHM7, MGO ####[facility] (DEFAULT)[address] [place] [address] Protein [Mass/Vol] 6.1 g/dL Low 6.4-8.3 [facility] Comment on above: Performed By: #### H FP, CHM7, MGO ####[facility] (DEFAULT)[address] [place] [address] Albumin [Mass/Vol] 2.8 g/dL Low 3.5 - 5.0 g/dL [facility] ALP [Catalytic activity/Vol] 103 U/L 32 - 126 U/L [facility] ALT [Catalytic activity/Vol] 26 U/L 10 - 52 U/L [facility] AST [Catalytic activity/Vol] 38 U/L 10 - 39 U/L [facility] Bilirubin [Mass/Vol] 0.9 mg/dL NINF - 1.5 mg/dL [facility] Bilirubin.direct [Mass/Vol] 0.1 mg/dL NINF - 0.3 mg/dL [facility] Protein [Mass/Vol] 6.1 g/dL Low 6.4 - 8.3 g/dL [facility] HISTOPLASMA ANTIGEN, FLUIDon 09-05-2023 FH SOURCE BAL RML [facility] Histo FLD interpretation Negative [facility] Histoplasma Antigen, FLUID Not detected ng/mL [facility] HISTOPLASMA CAPSULATUM/BLAST OMYCES SPECIES,PCR FLUIDon 09-05-2023 HISTO/BLASTO RESULT Negative Not Applicable [facility] Specimen source Nom (Unsp spec) BAL RML [facility] IMMUNOPHENOTYPING, TISSUE/FL UIDon 09-05-2023 BKR DX CODE Use Ordering [facility] Flow Interpretation See Comment [facility] Flow Interpreted by: Yossi Perla MD, PhD [facility] MAGNESIUMon 09-05-2023 Magnesium [Mass/Vol] 1.7 mg/dL Normal 1.6-2.6 [facility] Comment on above: Performed By: #### H FP, CHM7, MGO ####[facility] (DEFAULT)[address] [place] [address] Interpretation and review of laboratory results Normal [facility] Magnesium [Mass/Vol] 1.7 mg/dL 1.6 - 2 .6 mg/dL [facility] No Panel Informationon 09-05 Interpretation and review of laboratory results Abnormal [facility] TACROLIMUS LEVEL, TROUGH (DC E DRUG LEVEL)Ordered By: Raymundo Mehta on 09-05-2023 Interpretation and review of laboratory results Normal [facility] Tacrolimus (Bld) [Mass/Vol] 5.3 ng/mL [facility] TACROLIMUS LEVEL, TROUGH (DC E DRUG LEVEL)on 09-05-2023 Tacrolimus, Trough 5.3 ng/mL Normal Bone [place] ow Transplant: 4.0-12.0, Therapeutic: 5.0-15.0 [facility] Comment on above: Order Comment: Pleas e draw at specified interval PRIOR to dose. Do not hold dose to wait for level. Specimens batched twice per day, (M-F) and once per day weekendsMethod performed is a chemiluminescent microparticle immunoasssay on the [employer] i2000.The range is based on experience at [facility] and users should be aware that target concentrations vary widely depending on concomitant therapy, time post-transplant, and desired degree of immunosuppression. Performed By: #### T ACRO ####[facility] (DEFAULT)[address] [place] [address], [place] [address] ARTERIAL BLOOD GAS (FULL PUENTE EL)on 09-04-2023 Base Excess -1.2 mmol/L Normal -3.0-3.0 [facility] Comment on above: Performed By: #### G YASMINE ####[facility] (DEFAULT)[address] [facility] [place] [address] Carboxyhemoglobin 0.7 % Normal <=1.5 [facility] Comment on above: Performed By: #### Vale UNDERWOOD ####[facility] (DEFAULT)[address] [facility] [place] [address] Glucose [Mass/Vol] 159 mg/dL High 70-99 [facility] Comment on above: Performed By: #### G YASMINE ####[facility] (DEFAULT)[address] [facility] [place] [place] [address] HCO3 (Bld) [Moles/Vol] 22 mmol/L Normal 22-28 [facility] Comment on above: Performed By: #### Vale UNDERWOOD ####[facility] (DEFAULT)[address] [facility] [place] [address] Hematocrit (Bld) [Volume fraction] 38.0 % Low 40.2-50.4 [facility] Comment on above: Performed By: #### Vale UNDERWOOD ####[facility] (DEFAULT)[address] [facility] [place] [address] Hemoglobin (Bld) [Mass/Vol] 12.6 g/dL Low 13.4-16.8 [facility] Comment on above: Performed By: #### G ASALL ####[facility] (DEFAULT)[address] [place] [address] Ionized Calcium, Whole Blood 4.79 mg/dL Normal 4.60-5.30 [facility] Comment on above: Performed By: #### G ASALL ####[facility] (DEFAULT)[address] [facility] [place] [address] Lactate, Whole Blood 2.0 mmol/L High 0.5-1.6 [facility] Comment on above: Performed By: #### G ASAASHISH ####[facility] (DEFAULT)[address] [facility] [place] [address] Methemoglobin 0.0 % Normal <=1.5 [facility] Comment on above: Performed By: #### G ASAASHISH ####[facility] (DEFAULT)[address] [place], [place] [address], [place] [address] Oxyhemoglobin 91 % Low 94-98 [facility] Comment on above: Performed By: #### G YASMINE ####[facility] (DEFAULT)[address] [place], [place] [address], [place] [address] pCO2 30 mm Hg Low 32-48 [facility] Comment on above: Performed By: #### G ASALL ####[facility] (DEFAULT)[address] [facility] [place] [place] [address] pH (Bld) 7.48 [pH] High 7.35-7.45 [facility] Comment on above: Performed By: #### G ASALL ####[facility] (DEFAULT)[address] [place], [place] [address], [place] [address] pO2 62 mm Hg Low 83-108 [facility] Comment on above: Performed By: #### G ASAASHISH ####[facility] (DEFAULT)[address] [facility] [place] [place] [address] Potassium [Moles/Vol] 4.2 mmol/L Normal 3.5-5.0 [facility] Comment on above: Performed By: #### G YASMINE ####[facility] (DEFAULT)[address] [place] [address] sO2 92 % Low 94-98 [facility] Comment on above: Performed By: #### G YASMINE ####[facility] (DEFAULT)[address] [place] [address] Sodium [Moles/Vol] 130 mmol/L Low 135-145 [facility] Comment on above: Performed By: #### G YASMINE ####[facility] (DEFAULT)[address] [place] [address] Specimen type Nom (Spec) Arterial Normal [facility] Comment on above: Performed By: #### G YASMINE ####[facility] (DEFAULT)[address] [place] [address] Base excess Calc (Bld) [Moles/Vol] -1.2000 mmol/L -3.0 - 3.0 mmol/L [facility] Calcium.ionized (Bld) [Mass/Vol] 4.79 mg/dL 4.60 - 5.30 mg/dL [facility] Carboxyhemoglobin (Bld) [Mass fraction] 0.7 % NINF - 1.5 % [facility] CO2 (Bld) [Partial pressure] 30 mm[Hg] Low [facility] Glucose [Mass/Vol] 159 mg/dL High 70 - 99 mg/dL [facility] HCO3 (Bld) [Moles/Vol] 22 mmol/L 22 - 28 mmol/L [facility] Hematocrit (Bld) [Volume fraction] 38.0 % Low 40.2 - 50.4 % [facility] Hemoglobin (Bld) [Mass/Vol] 12.6 g/dL Low 13.4 - 16.8 g/dL [facility] Interpretation and review of laboratory results Abnormal [facility] Lactate [Moles/Vol] 2.0 mmol/L High 0.5 - 1. 6 mmol/L [facility] Methemoglobin (Bld) [Mass fraction] 0.0 % NINF - 1.5 % [facility] Oxygen (Bld) [Partial pressure] 62 mm[Hg] Low [facility] Oxygen saturation in Blood 92 % Low 94 - 98 % [facility] Oxyhemoglobin 91 % Low 94 - 98 % [facility] pH (Bld) 7.48 [pH] High 7.35 - 7.45 [facility] Potassium [Moles/Vol] 4.2 mmol/L 3.5 - 5.0 mmol/L [facility] Sodium [Moles/Vol] 130 mmol/L Low 135 - 145 mmol/L [facility] Specimen source Nom (Unsp spec) Arterial [facility] Bacteria identified Respirat ory culture Nom (Unsp spec)on 09-04-2023 Bacteria identified Cx Nom (Unsp spec) NO GROWTH DAY 2 OF 2 [facility] Microscopic observation Other stain Nom (Unsp spec) Cytocentrifuge preparation [facility] Microscopic observation Other stain Nom (Unsp spec) Neutrophils, Rare [facility] Microscopic observation Other stain Nom (Unsp spec) Red Blood Cells Present [facility] Microscopic observation Other stain Nom (Unsp spec) No organisms seen [facility] Bacteria identified Respirat ory culture Nom (Unsp spec)Ordered By: Jose Salgado on 09-04-2023 Bacteria identified Cx Nom (Unsp spec) NO GROWTH DAY 2 OF 2 [facility] Microscopic observation Other stain Nom (Unsp spec) Cytocentrifuge preparation [facility] Microscopic observation Other stain Nom (Unsp spec) Neutrophils, Moderate [facility] Microscopic observation Other stain Nom (Unsp spec) Red Blood Cells Present [facility] Microscopic observation Other stain Nom (Unsp spec) No organisms seen [facility] CBC,PLATELETSon 09-04-2023 Hematocrit (Bld) [Volume fraction] 38.7 % Low 39.6-48.8 [facility] Comment on above: Performed By: #### H EMOGC ####[facility] (DEFAULT)[address] [facility] [place] [address] Hemoglobin (Bld) [Mass/Vol] 12.3 g/dL Low 13.4-16.8 [facility] Comment on above: Performed By: #### H EMOGC ####[facility] (DEFAULT)[address] [facility] [place] [place] [address] MCV (RBC) [Entitic vol] 87.8 fL Normal 79.0-94.5 [facility] Comment on above: Performed By: #### H EMOGC ####[facility] (DEFAULT)[address] [facility] [place] [place] [address] Mean Cell Hgb 27.9 pg Normal 26.1-33.3 [facility] Comment on above: Performed By: #### H EMOGC ####[facility] (DEFAULT)[address] [facility] [place] [place] [address] Mean Cell Hgb Conc 31.8 g/dL Low 31.9-36.5 [facility] Comment on above: Performed By: #### H EMOGC ####[facility] (DEFAULT)[address] [facility] [place] [address] Platelet mean volume (Bld) [Entitic vol] 9.8 fL Normal 8.7-12.3 [facility] Comment on above: Performed By: #### H EMOGC ####[facility] (DEFAULT)[address] [facility] [place] [address] Platelets (Bld) [#/Vol] 173 10*3/uL Normal 146-337 [facility] Comment on above: Performed By: #### H EMOGC ####[facility] (DEFAULT)[address] [facility] [place] [address] RBC (Bld) [#/Vol] 4.41 10*6/uL Normal 4.38-5.83 [facility] Comment on above: Performed By: #### H [facility] ####[facility] (DEFAULT)[address] [facility] [place] [address] RBC Distribution 13.2 % Normal 10.9-14.3 [facility] Comment on above: Performed By: #### H [facility] ####[facility] (DEFAULT)[address] [place] [address] WBC (Bld) [#/Vol] 4.57 10*3/uL Normal 3.73-10.10 [facility] Comment on above: Performed By: #### H [facility] ####[facility] (DEFAULT)[address] [place] [address] Erythrocyte distribution width (RBC) [Ratio] 13.2 % 10.9 - 14.3 % [facility] Hematocrit (Bld) [Volume fraction] 38.7 % Low 39.6 - 48.8 % [facility] Hemoglobin (Bld) [Mass/Vol] 12.3 g/dL Low 13.4 - 16.8 g/dL [facility] Interpretation and review of laboratory results Abnormal [facility] MCH (RBC) [Entitic mass] 27.9 pg 26.1 - 33.3 pg [facility] MCHC (RBC) [Mass/Vol] 31.8 g/dL Low 31.9 - 36.5 g/dL [facility] MCV (RBC) [Entitic vol] 87.8 fL 79.0 - 94.5 fL [facility] Platelet mean volume (Bld) [Entitic vol] 9.8 fL 8.7 - 12.3 fL [facility] Platelets (Bld) [#/Vol] 173 10*3/uL 146 - 337 K/uL [facility] RBC (Bld) [#/Vol] 4.41 10*6/uL [facility] WBC (Bld) [#/Vol] 4.57 10*3/uL 3.73 - 10. 10 K/uL [facility] CHEM 7 (LYTES,BUN,CREA,GLUC) on 09-04-2023 Anion gap [Moles/Vol] 16 mmol/L Normal 7-17 [facility] Comment on above: Performed By: #### NATHANIEL RAMÍREZ, HFP ####[facility] (DEFAULT)[address] [facility] [place] [address] Chloride [Moles/Vol] 104 mmol/L Normal 98-108 [facility] Comment on above: Performed By: #### NATHANIEL RAMÍREZ, HFP ####[facility] (DEFAULT)[address] [facility] [place] [place] [address] CO2 [Moles/Vol] 18 mmol/L Low 21-31 [facility] Comment on above: Performed By: #### NATHANIEL RAMÍREZ, HFP ####[facility] (DEFAULT)[address] [facility] [place] [place] [address] Creatinine [Mass/Vol] 1.22 mg/dL Normal 0.70-1.30 [facility] Comment on above: Performed By: #### NATHANIEL RAMÍREZ, HFP ####[facility] (DEFAULT)[address] [facility] [place] [address] GFR/1.73 sq M.predicted among non-blacks MDRD (S/P/Bld) [Vol rate/Area] 71 mL/min/{1.73_m2} Normal >=60 [facility] Comment on above: Result Comment: Repo rted eGFR is based on the CKD-EPI 2020 equation using creatinine, age, and sex. Performed By: #### NATHANIEL RAMÍREZ, HFP ####[facility] (DEFAULT)[address] [facility] [place] [place] [address] Glucose [Mass/Vol] 124 mg/dL High 70-99 [facility] Comment on above: Performed By: #### NATHANIEL RAMÍREZ, HFP ####[facility] (DEFAULT)[address] [facility] [place] [place] [address] Osmolality [Osmolality] 284 mosm/kg Normal 278-305 [facility] Comment on above: Performed By: #### NATHANIEL RAMÍREZ, HFP ####[facility] (DEFAULT)[address] [place] [address] Potassium [Moles/Vol] 3.9 mmol/L Normal 3.5-5.0 [facility] Comment on above: Performed By: #### NATHANIEL RAMÍREZ, HFP ####[facility] (DEFAULT)[address] [facility] [place] [place] [address] Sodium [Moles/Vol] 134 mmol/L Low 135-145 [facility] Comment on above: Performed By: #### NATHANIEL RAMÍREZ, HFP ####[facility] (DEFAULT)[address] [facility] [place] [address] Urea nitrogen [Mass/Vol] 15 mg/dL Normal 7-25 [facility] Comment on above: Performed By: #### NATHANIEL RAMÍREZ, HFP ####[facility] (DEFAULT)[address] [facility] [place] [place] [address] Urea nitrogen/Creatinine [Mass ratio] 12 mg/mg Normal [facility] Comment on above: Performed By: #### NATHANIEL RAMÍREZ, HFP ####[facility] (DEFAULT)[address] [facility] [place] [place] [address] Anion gap [Moles/Vol] 16 mmol/L 7 - 17 mmol/L [facility] Chloride [Moles/Vol] 104 mmol/L 98 - 10 8 mmol/L [facility] CO2 [Moles/Vol] 18 mmol/L Low 21 - 31 mmol/L [facility] Creatinine [Mass/Vol] 1.22 mg/dL 0.70 - 1.30 mg/dL [facility] eGFR, CKD-EPI, Male 71 - [facility] Glucose [Mass/Vol] 124 mg/dL High 70 - 99 mg/dL [facility] Osmolality Calc [Osmolality] 284 [facility] Potassium [Moles/Vol] 3.9 mmol/L 3.5 - 5.0 mmol/L [facility] Sodium [Moles/Vol] 134 mmol/L Low 135 - 145 mmol/L [facility] Urea nitrogen [Mass/Vol] 15 mg/dL 7 - 25 mg/dL [facility] Urea nitrogen/Creatinine [Mass ratio] 12 mg/mg [facility] CMV PCR,FLUIDS,URINE,EYE ETC on 09-04-2023 Specimen source Nom (Unsp spec) BAL LLL [facility] Specimen source Nom (Unsp spec) BAL RML [facility] HEPATIC FUNCTION PANELon Albumin [Mass/Vol] 3.0 g/dL Low 3.5-5.0 [facility] Comment on above: Performed By: #### NATHANIEL RAMÍREZ, HFP ####[facility] (DEFAULT)[address] [facility] [place] [address] ALP [Catalytic activity/Vol] 112 U/L Normal 32-126 [facility] Comment on above: Performed By: #### NATHANIEL RAMÍREZ, HFP ####[facility] (DEFAULT)[address] [facility] [place] [address] ALT [Catalytic activity/Vol] 22 U/L Normal 10-52 [facility] Comment on above: Performed By: #### NATHANIEL RAMÍREZ, HFP ####[facility] (DEFAULT)[address] [facility] [place] [address] AST [Catalytic activity/Vol] 30 U/L Normal 10-39 [facility] Comment on above: Performed By: #### NATHANIEL RAMÍREZ, HFP ####[facility] (DEFAULT)[address] [facility] [place] [address] Bilirubin [Mass/Vol] 1.2 mg/dL Normal <1.5 [facility] Comment on above: Performed By: #### M GO, CHM7, HFP ####[facility] (DEFAULT)[address] [place] [address] Bilirubin.indirect [Mass/Vol] 0.4 mg/dL High <0.3 [facility] Comment on above: Performed By: #### M HELEN BLOOMM7, HFP ####[facility] (DEFAULT)[address] [facility] [place] [address] Protein [Mass/Vol] 6.4 g/dL Normal 6.4-8.3 [facility] Comment on above: Performed By: #### M NATHANIEL BLOOM, HFP ####[facility] (DEFAULT)[address] [facility] [place] [address] Albumin [Mass/Vol] 3.0 g/dL Low 3.5 - 5.0 g/dL [facility] ALP [Catalytic activity/Vol] 112 U/L 32 - 126 U/L [facility] ALT [Catalytic activity/Vol] 22 U/L 10 - 52 U/L [facility] AST [Catalytic activity/Vol] 30 U/L 10 - 39 U/L [facility] Bilirubin [Mass/Vol] 1.2 mg/dL NINF - 1.5 mg/dL [facility] Bilirubin.direct [Mass/Vol] 0.4 mg/dL High NINF - 0.3 mg/dL [facility] Protein [Mass/Vol] 6.4 g/dL 6.4 - 8.3 g/dL [facility] LEGIONELLA PCRon 09-04-2023 Legionella sp rRNA Probe Ql (Unsp spec) Negative Not Applicable [facility] Specimen source Nom (Unsp spec) BAL RML [facility] Laboratory - Microbiology an d Antimicrobial susceptibilityon 09-04-2023 CMV DNA ESTELITA+probe Ql (Unsp spec) Negative Negative [facility] MAGNESIUMon 09-04-2023 Magnesium [Mass/Vol] 1.4 mg/dL Low 1.6-2.6 [facility] Comment on above: Performed By: #### M , CHM7, HFP ####[facility] (DEFAULT)[address] [place] [address] Magnesium [Mass/Vol] 1.4 mg/dL Low 1.6 - 2 .6 mg/dL [facility] No Panel Informationon 09-04 Annotation comment [Interpretation] Narrative DNR [facility] PN Report Status DNR [facility] Pneumocystis jiroveci,PCR result Negative Not Applicable [facility] Interpretation and review of laboratory results Abnormal [facility] PNEUMOCYSTIS JIROVECI,PCRon 09-04-2023 Specimen source Nom (Unsp spec) BAL LLL [facility] Specimen source Nom (Unsp spec) BAL RML [facility] Portable XR Chest Viewson RADIOLOGY RADIOLOGY [facility] Radiology Study observation (narrative) [facility] Portable XR Chest ViewsOrder ed By: Joanie Nugent on 09-04-2023 [facility] Work Phone: TACROLIMUS LEVEL, TROUGH (DC E DRUG LEVEL)on 09-04-2023 Interpretation and review of laboratory results Abnormal [facility] Tacrolimus (Bld) [Mass/Vol] 3.6 ng/mL Low [facility] Tacrolimus, Trough 3.6 ng/mL Low [facility] [place] ow Transplant: 4.0-12.0, Therapeutic: 5.0-15.0 [facility] Comment on above: Order Comment: Pleas e draw at specified interval PRIOR to dose. Do not hold dose to wait for level. Specimens batched twice per day, (M-F) and once per day weekendsMethod performed is a chemiluminescent microparticle immunoasssay on the [employer] i2000.The range is based on experience at [employer] and users should be aware that target concentrations vary widely depending on concomitant therapy, time post-transplant, and desired degree of immunosuppression. Performed By: #### T ACRO ####[facility] (DEFAULT)[address] [place] [address] XR CHEST PORTABLEon 09-04-20 23 XR CHEST PORTABLE Normal [facility] ASPERGILLUS ANTIGEN, BALon 1 Galactomannan Ag IA Qn (Unsp spec) <0.500 NINF [facility] Galactomannan Ag IA Qn (Unsp spec) <0.500 NINF [facility] BAL CONSULTOrdered By: Noa Peralta on 09-03-2023 ALVEOLAR MACROPHAGES 32 % [facility] Work Phone: Bal comments Correlation with microbiology stains and cultures is recommended. [facility] Work Phone: Bal Diff Quik Stain Quality Check Acceptable [facility] Work Phone: BKR BAL INTERPRETATION Cellular specimen comprised of alveolar macrophages and small lymphocytes. No definitive microorganisms are observed. Moderate degenerative changes. [facility] Work Phone: BKR DX CODE Use Ordering [facility] Work Phone: Eosinophils Patterson stain Ql (Unsp spec) 0 % [facility] Work Phone: Lymphocytes/100 WBC (Bld) 57 % [facility] Work Phone: Neutrophils/100 WBC Manual cnt (Bronch spec) 11 % [facility] Work Phone: Pathologist review Jame (Unsp spec) [Interp] Leonardo Peralta MD [facility] Work Phone: [facility] Work Phone: BAL CONSULTon 09-03-2023 ALVEOLAR MACROPHAGES 33 % [facility] Bal comments Correlation with microbiology stains and cultures is recommended. Correlation with viral studies is recommended. [facility] Bal Diff Quik Stain Quality Check Acceptable [facility] BKR BAL INTERPRETATION Cellular specimen comprised of alveolar macrophages and small lymphocytes. No definitive microorganisms are observed. Rare degenerating cells with changes suggestive of viral cytopathic effect are noted. Moderate degenerative changes. [facility] BKR DX CODE Use Ordering [facility] Eosinophils Patterson stain Ql (Unsp spec) 0 % [facility] Lymphocytes/100 WBC (Bld) 49 % [facility] Neutrophils/100 WBC Manual cnt (Bronch spec) 18 % [facility] Pathologist review Jame (Unsp spec) [Interp] Leonardo Peralta MD [facility] BRONCHOSCOPYon 09-03-2023 LAB, [facility] CBC,PLATELETSon 09-03-2023 Hematocrit (Bld) [Volume fraction] 39.6 % Normal 39.6-48.8 [facility] Comment on above: Performed By: #### H [facility] ####[facility] (DEFAULT)[address] [place] [address] Hemoglobin (Bld) [Mass/Vol] 12.8 g/dL Low 13.4-16.8 [facility] Comment on above: Performed By: #### H [facility] ####[facility] (DEFAULT)[address] [facility] [place] [address] MCV (RBC) [Entitic vol] 85.9 fL Normal 79.0-94.5 [facility] Comment on above: Performed By: #### H [facility] ####[facility] (DEFAULT)[address] [place] [address] Mean Cell Hgb 27.8 pg Normal 26.1-33.3 [facility] Comment on above: Performed By: #### H [facility] ####[facility] (DEFAULT)[address] [facility] [place] [address] Mean Cell Hgb Conc 32.3 g/dL Normal 31.9-36.5 [facility] Comment on above: Performed By: #### H [facility] ####[facility] (DEFAULT)[address] [facility] [place] [address] Platelet mean volume (Bld) [Entitic vol] 9.4 fL Normal 8.7-12.3 [facility] Comment on above: Performed By: #### H EMO ####[facility] (DEFAULT)[address] [facility] [place] [address] Platelets (Bld) [#/Vol] 222 10*3/uL Normal 146-337 [facility] Comment on above: Performed By: #### H EMO ####[facility] (DEFAULT)[address] [facility] [place] [address] RBC (Bld) [#/Vol] 4.61 10*6/uL Normal 4.38-5.83 [facility] Comment on above: Performed By: #### H EMO ####[facility] (DEFAULT)[address] [facility] [place] [address] RBC Distribution 13.4 % Normal 10.9-14.3 [facility] Comment on above: Performed By: #### H EMO ####[facility] (DEFAULT)[address] [facility] [place] [address] WBC (Bld) [#/Vol] 4.36 10*3/uL Normal 3.73-10.10 [facility] Comment on above: Performed By: #### H EMO ####[facility] (DEFAULT)[address] [facility] [place] [address] Erythrocyte distribution width (RBC) [Ratio] 13.4 % 10.9 - 14.3 % [facility] Hematocrit (Bld) [Volume fraction] 39.6 % 39.6 - 48.8 % [facility] Hemoglobin (Bld) [Mass/Vol] 12.8 g/dL Low 13.4 - 16.8 g/dL [facility] Interpretation and review of laboratory results Abnormal [facility] MCH (RBC) [Entitic mass] 27.8 pg 26.1 - 33.3 pg [facility] MCHC (RBC) [Mass/Vol] 32.3 g/dL 31.9 - 36.5 g/dL [facility] MCV (RBC) [Entitic vol] 85.9 fL 79.0 - 94.5 fL [facility] Platelet mean volume (Bld) [Entitic vol] 9.4 fL 8.7 - 12.3 fL [facility] Platelets (Bld) [#/Vol] 222 10*3/uL 146 - 337 K/uL [facility] RBC (Bld) [#/Vol] 4.61 10*6/uL [facility] WBC (Bld) [#/Vol] 4.36 10*3/uL 3.73 - 10. 10 K/uL [facility] CHEM 7 (LYTES,BUN,CREA,GLUC) on 09-03-2023 Anion gap [Moles/Vol] 12 mmol/L Normal 7-17 [facility] Comment on above: Performed By: #### NATHANIEL RAMÍREZ, HFP ####[facility] (DEFAULT)[address] [facility] [place] [address] Chloride [Moles/Vol] 104 mmol/L Normal 98-108 [facility] Comment on above: Performed By: #### NATHANIEL RAMÍREZ, HFP ####[facility] (DEFAULT)[address] [facility] [place] [address] CO2 [Moles/Vol] 24 mmol/L Normal 21-31 [facility] Comment on above: Performed By: #### NATHANIEL RAMÍREZ, HFP ####[facility] (DEFAULT)[address] [place] [address] Creatinine [Mass/Vol] 1.20 mg/dL Normal 0.70-1.30 [facility] Comment on above: Performed By: #### NATHANIEL RAMÍREZ, HFP ####[facility] (DEFAULT)[address] [facility] [place] [address] GFR/1.73 sq M.predicted among non-blacks MDRD (S/P/Bld) [Vol rate/Area] 73 mL/min/{1.73_m2} Normal >=60 [facility] Comment on above: Result Comment: Repo rted eGFR is based on the CKD-EPI 2020 equation using creatinine, age, and sex. Performed By: #### NATHANIEL RAMÍREZ, HFP ####[facility] (DEFAULT)[address] [place] [address] Glucose [Mass/Vol] 112 mg/dL High 70-99 [facility] Comment on above: Performed By: #### NATAHNIEL RAMÍREZ, HFP ####[facility] (DEFAULT)[address] [facility] [place] [address] Osmolality [Osmolality] 288 mosm/kg Normal 278-305 [facility] Comment on above: Performed By: #### NATHANIEL RAMÍREZ, HFP ####[facility] (DEFAULT)[address] [place] [address] Potassium [Moles/Vol] 4.1 mmol/L Normal 3.5-5.0 [facility] Comment on above: Performed By: #### NATHANIEL RAMÍREZ, HFP ####[facility] (DEFAULT)[address] [place] [address] Sodium [Moles/Vol] 136 mmol/L Normal 135-145 [facility] Comment on above: Performed By: #### NATHANIEL RAMÍREZ, HFP ####[facility] (DEFAULT)[address] [facility] [address] Urea nitrogen [Mass/Vol] 17 mg/dL Normal 7-25 [facility] Comment on above: Performed By: #### NATHANIEL RAMÍREZ, HFP ####[facility] (DEFAULT)[address] [place] [address] Urea nitrogen/Creatinine [Mass ratio] 14 mg/mg Normal [facility] Comment on above: Performed By: #### M , [facility], [facility] ####[facility] (DEFAULT)[address] [place] [address] Anion gap [Moles/Vol] 12 mmol/L 7 - 17 mmol/L [facility] Chloride [Moles/Vol] 104 mmol/L 98 - 10 8 mmol/L [facility] CO2 [Moles/Vol] 24 mmol/L 21 - 31 mmol/L [facility] Creatinine [Mass/Vol] 1.20 mg/dL 0.70 - 1.30 mg/dL [facility] eGFR, CKD-EPI, Male 73 [facility] Glucose [Mass/Vol] 112 mg/dL High 70 - 99 mg/dL [facility] Osmolality Calc [Osmolality] 288 [facility] Potassium [Moles/Vol] 4.1 mmol/L 3.5 - 5.0 mmol/L [facility] Sodium [Moles/Vol] 136 mmol/L 135 - 145 mmol/L [facility] Urea nitrogen [Mass/Vol] 17 mg/dL 7 - 25 mg/dL [facility] Urea nitrogen/Creatinine [Mass ratio] 14 mg/mg [facility] CYTOLOGY, NON-GYNOrdered By: Sherice Jimenez on 09-03-2023 CYTOLOGIC DIAGNOSIS u3undQIxXFRcxCFhDGZuL3aeuzN gURDzrJIwQ4LcxnwxODlkIO7zAN 3bfHimcZDyvSAdCNRtOnWwp9jlq 455nCNcd6hbQSWZazjqjXh7n9ll JGLGiX8fp1l5zX57KBZucG8ykHJ aARtwchHvACkhidVaehAwGax8EX T5tSinSslhoJX2mRIiuZT2YPpsz 0DafHyyfGqxPBM6AKDdNltsCIhd qMB9qYZibIpboSOwOS2wn5njnEE 7ccGgNTD8wOsppML8bEhkqiylc2 nacTY0gBP8HCugqNI8XXfcMcIxT 8czQHSleM8cL34xX7nvIPQwwKuy AMzbANDcwMJ1MNI2CVZoq1laIZM ghTOjcLFuAqUrBAmpTrk2n4ooVW UgcA06sNNrabE4jVjxHLbyrUX8T L79YAasb9YmTCGchThmHAHhfK7z YzIzXGxldmVsbmZjbjIzXGxldmV ddoOuIAabblBcs1VdrpZvfMW5XB ybekBuhPS6tOnyYLHjS6W7C969W VxxgyXfbvWxTuFgzii2JRBdcGco bGlzdGxldmVsXGxldmVsbmZjMjN uzUS5PRhyXcLgUwPdtKI5ZXzuCu YedJH6JXtgzLRdtPZ2COtdtSO4B Rf9JQh4HWrmLOryOqc1dJbkpTB8 ZJczdK5jKDCmX47uEzH7d8lcxCJ 4pCY7QZkpdKS8KCgwUrDkL0wrLO SakV5nJ99gW2lnKSZeuLpxMPieB PNcgXF5YYT8SRJfj8yhRZYalVJk vHNsJgDuSKqbQmm5r2rmDEWgeM7 8dLIqgwJ1zGsxEO24IHlcs8ApAG EhuMyoREUkvD1vEbGiVZscurYmj mZjbjIzXGxldmVsamMwXGxldmVs d1KzqxDomVT0MHludwFvcLE3uQo eMYAeG5Y0Z682RLzeorSsstRkDe Lrxft9ZZUdvAsnrJdpkZquhyFuH OiskrEdmcLmVyQbkIP5IXcwFeJl KpBoxKA4KKszQoGeiXY5LHscnJQ tzLF6TLzwgKH3NKf8GWf2YZloJQ xzFrp4hSjxkQY3TGncfZ3aPCHaS 99dAfX7i3waxTZ5bDH2UJawoQV1 SYctKhJwT4xoQCGsqY4zF50eF8w vZFNwtLdmFGwwYPNtoQT6CQL5UX Twh2mbZSKoaRQviJNpGrWoJPdaS xt6w1ctZYZpwH84lMPlucL6mXej LF46ZYqgh3MfMRDasFwmAHQhqD4 mYzIzXGxldmVsbmZjbjIzXGxldm LqleEoKPkfrsIha4VexfVboNB3M JgbjgGddNJ6wKvjHNQkW2A0F058 MGndvnEdmiBjKwSojbm7ILDuzIn cbGlzdGxldmVsXGxldmVsbmZjMj ArmOE4EToeCfLtVmBtqDY5VJukZ oAfkYC5CMzikICwjZF6KFvycES1 CYl8SQr0OOfpLIzkBsp8tUtfuFB 2EPxqoJ5pFPSiN89iWmC3vH61EY qrdNzmkV66XAFveAFttFEijXE7C IvlsBzzgS40PEBqvKTzMKegt4Ep IDOeXrY0YYU6BCZjsYbhqX77FDZ zuQZhK146scTrEYkbJW35CUPupO UpmwNnCnEvKURmdCDcnXC1GPDvX S6moejhPJiuPVtiTTTfdhL4QRZs mDMxV1SaWVHjMQ5nrdtlIGJ6NKg oBSMdJXB5MpNyEPPwt3Ezgob3Fa HkpQh8i4obFUBiEEKgxLbpw3hoV ZF8TMCytMEaV2tzcC7fCUGsFQ2x oamst8ipEFrjIDewYZFygCT4qtE 6EBHgiVNjD0QbsC6mCOOyXDEmwp FkkTpduB2cSuejnzKzMIDiLWZTF jQIXc3PD6cTAJnKTP2GQXDpOLVV UNbLUYDPTPPXXEmEV6NOMOrACcJ cFQWrJTMmZ3zJM1kQS5irZtdeTf YiAYpjAXKvBsUtI7GcDPMiqcfpM RCvBTIWUU6JXMHUEKQIRr8KOLB3 UMQeththcYW4GZigxlVqkVh5nHD isJinwC7uWxjzeiZtSYIrWEGGip TZGZmcE92aboHjV5EzmAToRZAnL PloRK93cGNgYIMhzASgWYp4lO3l ZLxtxDtvwgIAsSScvJ2jpmnkIKe jZjBccGFyXGxpMFxsczBccGFyfQ == [facility] Work Phone: Case Report [facility] Work Phone: Clinical History j5kgiLDvOTMppOQuVSZm K1iuxbL nDJBcxSYoH9DdmwvpXIqfWV4kFO 4fiXmgxBWopVBtITJwRwWuv6dhc 568yJFlp1ecFDKUsafyuMt3iSza O57qk5U9PdqyV4arPAAeFWbcSNY nRUtrbYUvIAu7PNPmiTQdhyUvYi HcGWEsuXRjrOR6SCQpWT8rngexY PskIFcgSTIrkiD1CGVlwKEjG2Mi BXDnAB3yfdkfVPE0XFrrBOKdWQZ 0JoLfIBPrk1Xpqmd1RxOqyYq8k6 ljXOYeHSOdxMjtw0rkROI8NFDhe TLgE6elmQ1iMJWmIF0hcdcom5uo LEpyVFvkDXZpnXB7quL8HAMfxFD pK4EvlE0qGEWrOCGyafMihWcyzM 5cZnMyMFxjZjEgUmVuYWwgdHJhb xQvmTNktT5rTKVyla6= [facility] Work Phone: For Immediate Release to Patient's MyChart? Yes Yes [facility] Work Phone: Gross Description m1cijIHmLHHmrATgGQEr U1knpiK rBAXlwRArW2IeebppHQgjLJ1xRI 6mvQcmsWAulLFuENVvBwEbk0zcw 755jNZki4ruTPUGzxnjeYe0dNuu I61zk2N9BuoaL98rlGHoCLC1AYX pRNZltMFfOZVuNQR4RWXlbONrQ9 kzSLZrSP0cszplZBohIPktGORxy LF9KHQnoVJkP4SnKYMsUQjwMUMf bth5CvZjSo2ekCJwuPjyKByqVSJ kXHBsYWluXGZzMjAgTExMIEJBTF skHWKrMGWwkPPtDQy3SYGujJ5xt WBtimYlrWItzD5koUadVBtiURAs GLWOVUOtjOigNONMASQjg9GpiA5 ccGFyXHBhcmRccGFyXHBhcn0= [facility] Work Phone: [facility] Work Phone: HEPATIC FUNCTION PANELon Albumin [Mass/Vol] 3.2 g/dL Low 3.5-5.0 [facility] Comment on above: Performed By: #### M MERLE CHM7, HFP ####[facility] (DEFAULT)[address] [place] [address] ALP [Catalytic activity/Vol] 118 U/L Normal 32-126 [facility] Comment on above: Performed By: #### M HELEN BLOOMM7, HFP ####[facility] (DEFAULT)[address] [place] [address] ALT [Catalytic activity/Vol] 25 U/L Normal 10-52 [facility] Comment on above: Performed By: #### M HELEN BLOOMM7, HFP ####[facility] (DEFAULT)[address] [place] [address] AST [Catalytic activity/Vol] 32 U/L Normal 10-39 [facility] Comment on above: Performed By: #### M HELEN BLOOMM7, HFP ####[facility] (DEFAULT)[address] [place] [address] Bilirubin [Mass/Vol] 1.0 mg/dL Normal <1.5 [facility] Comment on above: Performed By: #### NATHANIEL RAMÍREZ, HFP ####[facility] (DEFAULT)[address] [place] [address] Bilirubin.indirect [Mass/Vol] 0.3 mg/dL High <0.3 [facility] Comment on above: Performed By: #### NATHANIEL RAMÍREZ, HFP ####[facility] (DEFAULT)[address] [place] [address] Protein [Mass/Vol] 6.5 g/dL Normal 6.4-8.3 [facility] Comment on above: Performed By: #### M HELEN BLOOMM7, HFP ####[facility] (DEFAULT)[address] [place] [address] Albumin [Mass/Vol] 3.2 g/dL Low 3.5 - 5.0 g/dL [facility] ALP [Catalytic activity/Vol] 118 U/L 32 - 126 U/L [facility] ALT [Catalytic activity/Vol] 25 U/L 10 - 52 U/L [facility] AST [Catalytic activity/Vol] 32 U/L 10 - 39 U/L [facility] Bilirubin [Mass/Vol] 1.0 mg/dL NINF - 1.5 mg/dL [facility] Bilirubin.direct [Mass/Vol] 0.3 mg/dL High NINF - 0.3 mg/dL [facility] Protein [Mass/Vol] 6.5 g/dL 6.4 - 8.3 g/dL [facility] HISTOPLASMA AND BLASTOMYCES ANTIGEN, ENZYME IMMUNOASSAY, SERMon 09-03-2023 Histoplasma/Blastomy antonia Ag Result Detected Critically abnormal Not Detected [facility] Histoplasma/Blastomy antonia Ag Value 5.3 ng/mL [facility] Interpretation and review of laboratory results Abnormal [facility] IMMUNOPHENOTYPING, TISSUE/FL UIDon 09-03-2023 BKR DX CODE Use Ordering Normal [facility] Comment on above: Order Comment: Pleas e lab add on to specimen collected yesterdayIMMUNOPHENOTYPING DIAGNOSISPATIENT NAME: GEORGE SLATER: 1970MRN: [id number]#: [id number] BY: Yossi Perla M.D,, Ph.D. [id number] TYPE: Bronchial Alveolar LavageLABORATORY INTERPRETATION:There is no immunophenotypic evidence of an abnormal populationof T lymphocytes. Too few B-cells for immunophenotypiccharacterization in this specimen. Correlation with tissuemorphology is recommended.PHENOTYPIC DESCRIPTION:Flow cytometric analysis of a bronchial alveolar lavage wasperformed using a ten color technique with a gating strategy basedon CD45 staining and light side scatter characteristics. Theconcentrated specimen is suboptimal based on a viability of 79.0%as assessed by 7AAD dye exclusion. Lymphocytes represent 66.9% of the total events analyzed. Of the lymphocytes: 0.1 % are Bcells (CD19+) , 96.8 % are T cells (CD3+) with a CD4:CD8 ratio of1.2 and 2.3 % are NK cells (positive for CD56 and/or CD16 andnegative for CD3). MARKER DESCRIPTION LYM REG % ======CD19+ B CELL 0.1CD19+/CD20+ B CELL 0.1SIG SURFACE IG 0K/L KAPPA/LAMBDA 0:0CD2+ TCELL 98.2CD3+ T CELL 96.8CD4+/CD3- T CELL 0.2CD4+/CD3+ T HELPER 48.3CD8+/CD3- T CELL 0.89CD8+/CD3+ T SUPPRESSOR 41.28HSRA CD4/CD8 1.2CD5+/CD19- T CELL 94.9CD5+/CD19+ 0.3CD23+ B CELL SUBSET 0.1CD19+/CD10+ 0.0CD10+ BOZENA 0.1CD7+/CD2- T CELL 1.6CD7+/CD2+ T CELL 75.2CD13+/HLA DR- MONO/GRAN 0.5HLA DR+/CD13+ 1.7HLADR+/CD13- 27.4CD14+CD13- 0.03CD13+/CD14+ 0.1CD56/16+/CD3- NATURAL KILLER 2.3 ========MARKERS TESTED: CD10, CD13, CD14, CD19, CD2, CD20,CD23, CD3, CD4, CD5, CD56/16, CD7, CD8, HLA DR, KAPPA,LAMBDAMARKERS BILLED: 16This test was developed and its performance characteristicsdetermined The Flow Cytometry Laboratory at [facility]. It has notbeen cleared or approved by the FDA. This laboratory is certifiedunder the Clinical Laboratory Improvement Amendments (CLIA)as qualified to perform high complexity clinical laboratorytesting. This test is used for clinical purposes. It should notbe regarded as investigational or for research.The [facility] Flow Cytometry Laboratory lower limitof CLL MRD detection is 0.1% of the gated lymphocytes. Performed By: #### G IPP ####[facility] (DEFAULT)[address] [place] [address] Flow Interpretation See Comment Normal [facility] Comment on above: Order Comment: Dilan gregory lab add on to specimen collected yesterdayIMMUNOPHENOTYPING DIAGNOSISPATIENT NAME: GEORGE SLATER: 1970MRN: [id number]#: [id number] BY: Yossi Perla M.D,, Ph.D. [id number] TYPE: Bronchial Alveolar LavageLABORATORY INTERPRETATION:There is no immunophenotypic evidence of an abnormal populationof T lymphocytes. Too few B-cells for immunophenotypiccharacterization in this specimen. Correlation with tissuemorphology is recommended.PHENOTYPIC DESCRIPTION:Flow cytometric analysis of a bronchial alveolar lavage wasperformed using a ten color technique with a gating strategy basedon CD45 staining and light side scatter characteristics. Theconcentrated specimen is suboptimal based on a viability of 79.0%as assessed by 7AAD dye exclusion. Lymphocytes represent 66.9% of the total events analyzed. Of the lymphocytes: 0.1 % are Bcells (CD19+) , 96.8 % are T cells (CD3+) with a CD4:CD8 ratio of1.2 and 2.3 % are NK cells (positive for CD56 and/or CD16 andnegative for CD3). MARKER DESCRIPTION LYM REG % ======CD19+ B CELL 0.1CD19+/CD20+ B CELL 0.1SIG SURFACE IG 0K/L KAPPA/LAMBDA 0:0CD2+ TCELL 98.2CD3+ T CELL 96.8CD4+/CD3- T CELL 0.2CD4+/CD3+ T HELPER 48.3CD8+/CD3- T CELL 0.89CD8+/CD3+ T SUPPRESSOR 41.28HSRA CD4/CD8 1.2CD5+/CD19- T CELL 94.9CD5+/CD19+ 0.3CD23+ B CELL SUBSET 0.1CD19+/CD10+ 0.0CD10+ BOZENA 0.1CD7+/CD2- T CELL 1.6CD7+/CD2+ T CELL 75.2CD13+/HLA DR- MONO/GRAN 0.5HLA DR+/CD13+ 1.7HLADR+/CD13- 27.4CD14+CD13- 0.03CD13+/CD14+ 0.1CD56/16+/CD3- NATURAL KILLER 2.3 ========MARKERS TESTED: CD10, CD13, CD14, CD19, CD2, CD20,CD23, CD3, CD4, CD5, CD56/16, CD7, CD8, HLA DR, KAPPA,LAMBDAMARKERS BILLED: 16This test was developed and its performance characteristicsdetermined The Flow Cytometry Laboratory at [facility]. It has notbeen cleared or approved by the FDA. This laboratory is certifiedunder the Clinical Laboratory Improvement Amendments (CLIA)as qualified to perform high complexity clinical laboratorytesting. This test is used for clinical purposes. It should notbe regarded as investigational or for research.The [facility] Flow Cytometry Laboratory lower limitof CLL MRD detection is 0.1% of the gated lymphocytes. Performed By: #### G IPP ####[facility] ([facility])[address] [place] [address] Flow Interpreted by: Yossi Perla MD, PhD Normal [facility] Comment on above: Order Comment: Pleas e lab add on to specimen collected yesterdayIMMUNOPHENOTYPING DIAGNOSISPATIENT NAME: GEORGE SLATER: 1970MRN: [id number]#: [id number] BY: Yossi Perla M.D,, Ph.D. [id number] TYPE: Bronchial Alveolar LavageLABORATORY INTERPRETATION:There is no immunophenotypic evidence of an abnormal populationof T lymphocytes. Too few B-cells for immunophenotypiccharacterization in this specimen. Correlation with tissuemorphology is recommended.PHENOTYPIC DESCRIPTION:Flow cytometric analysis of a bronchial alveolar lavage wasperformed using a ten color technique with a gating strategy basedon CD45 staining and light side scatter characteristics. Theconcentrated specimen is suboptimal based on a viability of 79.0%as assessed by 7AAD dye exclusion. Lymphocytes represent 66.9% of the total events analyzed. Of the lymphocytes: 0.1 % are Bcells (CD19+) , 96.8 % are T cells (CD3+) with a CD4:CD8 ratio of1.2 and 2.3 % are NK cells (positive for CD56 and/or CD16 andnegative for CD3). MARKER DESCRIPTION LYM REG % ======CD19+ B CELL 0.1CD19+/CD20+ B CELL 0.1SIG SURFACE IG 0K/L KAPPA/LAMBDA 0:0CD2+ TCELL 98.2CD3+ T CELL 96.8CD4+/CD3- T CELL 0.2CD4+/CD3+ T HELPER 48.3CD8+/CD3- T CELL 0.89CD8+/CD3+ T SUPPRESSOR 41.28HSRA CD4/CD8 1.2CD5+/CD19- T CELL 94.9CD5+/CD19+ 0.3CD23+ B CELL SUBSET 0.1CD19+/CD10+ 0.0CD10+ BOZENA 0.1CD7+/CD2- T CELL 1.6CD7+/CD2+ T CELL 75.2CD13+/HLA DR- MONO/GRAN 0.5HLA DR+/CD13+ 1.7HLADR+/CD13- 27.4CD14+CD13- 0.03CD13+/CD14+ 0.1CD56/16+/CD3- NATURAL KILLER 2.3 ========MARKERS TESTED: CD10, CD13, CD14, CD19, CD2, CD20,CD23, CD3, CD4, CD5, CD56/16, CD7, CD8, HLA DR, KAPPA,LAMBDAMARKERS BILLED: 16This test was developed and its performance characteristicsdetermined The Flow Cytometry Laboratory at [facility]. It has notbeen cleared or approved by the FDA. This laboratory is certifiedunder the Clinical Laboratory Improvement Amendments (CLIA)as qualified to perform high complexity clinical laboratorytesting. This test is used for clinical purposes. It should notbe regarded as investigational or for research.The [facility] Flow Cytometry Laboratory lower limitof CLL MRD detection is 0.1% of the gated lymphocytes. Performed By: #### G IPP ####[facility] (DEFAULT)[address] [place] [address] MAGNESIUMon 09-03-2023 Magnesium [Mass/Vol] 1.6 mg/dL Normal 1.6-2.6 [facility] Comment on above: Performed By: #### M GO, CHM7, [facility] ####[facility] (DEFAULT)[address] [place] [address] Interpretation and review of laboratory results Normal [facility] Magnesium [Mass/Vol] 1.6 mg/dL 1.6 - 2 .6 mg/dL [facility] No Panel Informationon 09-03 Interpretation and review of laboratory results Abnormal [facility] PARVOVIRUS (B19) DNA, PCR, B LOODon 09-03-2023 PARVOVIRUS B19 BY RAPID PCR Not detected Not Detected [facility] DC SPEC SOURCE Whole Blood [facility] Portable XR Chest Viewson RADIOLOGY RADIOLOGY [facility] Radiology Study observation (narrative) [facility] Portable XR Chest ViewsOrder ed By: [place] on 09-03-2023 [facility] Work Phone: XR CHEST PORTABLEon 09-03-20 23 XR CHEST PORTABLE Normal [facility] ACID FAST CULTUREon 09-02-20 23 Bacteria identified Cx Nom (Unsp spec) NO GROWTH DAY 42 OF 42 Normal [facility] Comment on above: Performed By: #### A FB ####[facility] (DEFAULT)[address] [facility] [place] [address] Fluorochrome Stain No acid Fast Bacillus Seen Normal [facility] Comment on above: Performed By: #### A FB ####[facility] (DEFAULT)[address] [facility] [place] [address] Bacteria identified Cx Nom (Unsp spec) NO GROWTH DAY 42 OF 42 Normal [facility] Comment on above: Order Comment: BAL A FB culture. Clinical suspicion for non-tuberculous mycobacteria Performed By: #### A FB ####[facility] (DEFAULT)[address] [facility] [place] [address] Fluorochrome Stain No acid Fast Bacillus Seen Normal [facility] Comment on above: Order Comment: BAL A FB culture. Clinical suspicion for non-tuberculous mycobacteria Performed By: #### A FB ####[facility] (DEFAULT)[address] [facility] [place] [address] ASPERGILLUS (GALACTOMANNAN), ANTIGENon 09-02-2023 Galactomannan Ag IA Qn <0.500 NINF [facility] ASPERGILLUS ANTIGEN, BALon 1 Aspergillus Galactomannan Antigen, BAL <0.500 Normal <0.5 [facility] Comment on above: Result Comment: ---- ADDITIONAL INFORMATION This is a qualitative test and the resulted index value isnot indicative of disease severity. Serial testing isrecommended for patients at high risk for invasiveaspergillosis.This assay was performed using the FDA-cleared Bio-Rad[employer]at[employer] Aspergillus Galactomannan EIA.Test Performed by:[address] Director: Rosendo Bose M.D. Ph.D.; CLIA# [id number] Performed By: #### X ASGFL ####[facility] (DEFAULT)[address] [place] [address] Aspergillus Galactomannan Antigen, BAL <0.500 Normal <0.5 [facility] Comment on above: Order Comment: BAL a spirgillus antigen Result Comment: ---- ADDITIONAL INFORMATION This is a qualitative test and the resulted index value isnot indicative of disease severity. Serial testing isrecommended for patients at high risk for invasiveaspergillosis.This assay was performed using the FDA-cleared [employer] Aspergillus Galactomannan EIA.Test Performed by:[address] Director: Rosendo Bose M.D. Ph.D.; CLIA# [id number] Performed By: #### X ASGFL ####[facility] (DEFAULT)[address] [place] [address] ATYPICAL BACTERIAL PNEUMONIA ,PCROrdered By: Shari Contreras on 09-02-2023 B. parapertussis DNA ESTELITA+probe Ql (Unsp spec) Not detected Not Detected [facility] B. pertussis DNA ESTELITA+probe Ql (Unsp spec) Not detected Not Detected [facility] C. pneumoniae DNA ESTELITA+probe Ql (Unsp spec) Not detected Not Detected [facility] Interpretation and review of laboratory results Normal [facility] M. pneumoniae DNA ESTELITA+probe Ql (Unsp spec) Not detected Not Detected [facility] ATYPICAL BACTERIAL PNEUMONIA ,PCRon 09-02-2023 Bordetella Parapertussis Not detected Normal Not Detected [facility] Comment on above: Order Comment: [...] by The Clinical Microbiology Laboratory at [facility]. It has not been cleared or approved by the FDA. The laboratory is required under CLIA as qualified to perform high-complexity testing. This test is used for clinical purposes. It should not be regarded as investigational or for research. Performed By: #### A TYPNE ####[facility] (DEFAULT)[address] [place] [address] Bordetella Pertussis Not detected Normal Not Detected [facility] Comment on above: Order Comment: [...] by The Clinical Microbiology Laboratory at [facility]. It has not been cleared or approved by the FDA. The laboratory is required under CLIA as qualified to perform high-complexity testing. This test is used for clinical purposes. It should not be regarded as investigational or for research. Performed By: #### A TYPNE ####[facility] (DEFAULT)[address] [address] Chlamydia Pneumoniae Not detected Normal Not Detected [facility] Comment on above: Order Comment: [...] by The Clinical Microbiology Laboratory at [facility]. It has not been cleared or approved by the FDA. The laboratory is required under CLIA as qualified to perform high-complexity testing. This test is used for clinical purposes. It should not be regarded as investigational or for research. Performed By: #### A TYPNE ####[facility] (DEFAULT)[address] [address] Mycoplasma Pneumoniae Not detected Normal Not Detected [facility] [facility] Comment on above: Order Comment: [...] by The Clinical Microbiology Laboratory at [facility]. It has not been cleared or approved by the FDA. The laboratory is required under CLIA as qualified to perform high-complexity testing. This test is used for clinical purposes. It should not be regarded as investigational or for research. Performed By: #### A TYPNE ####[facility] (DEFAULT)[address] [place] [address] BAL CONSULTon 09-02-2023 ALVEOLAR MACROPHAGES 33 % Normal [facility] Comment on above: Order Comment: BAL c onsultIf > 15% lymphocytes - please send for flow. Performed By: #### B ALC ####[facility] (DEFAULT)[address] [place] [address], [place] [address] Bal comments Correlation with microbiology stains and cultures is recommended. Correlation with viral studies is recommended. Normal [facility] Comment on above: Order Comment: BAL c onsultIf > 15% lymphocytes - please send for flow. Performed By: #### B ALC ####[facility] (DEFAULT)[address] [place] [address], [place] [address] Bal Diff Quik Stain Quality Check Acceptable Normal [facility] Comment on above: Order Comment: BAL c onsultIf > 15% lymphocytes - please send for flow. Performed By: #### B ALC ####[facility] (DEFAULT)[address] [place] [address], [place] [address] Bal Reviewed By: Leonardo Peralta MD [facility] Comment on above: Order Comment: BAL c onsultIf > 15% lymphocytes - please send for flow. Performed By: #### B ALC ####[facility] (DEFAULT)[address] [place] [address] BKR BAL INTERPRETATION Cellular specimen comprised of alveolar macrophages and small lymphocytes. No definitive microorganisms are observed. Rare degenerating cells with changes suggestive of viral cytopathic effect are noted. Moderate degenerative changes. Normal [facility] Comment on above: Order Comment: BAL c onsultIf > 15% lymphocytes - please send for flow. Performed By: #### B ALC ####[facility] (DEFAULT)[address] [place] [address], [place] [address] BKR DX CODE Use Ordering Normal [facility] Comment on above: Order Comment: BAL c onsultIf > 15% lymphocytes - please send for flow. Performed By: #### B ALC ####[facility] (DEFAULT)[address] [place] [address] Eosinophils/100 WBC (Bld) 0 % Normal [facility] Comment on above: Order Comment: BAL c onsultIf > 15% lymphocytes - please send for flow. Performed By: #### B ALC ####[facility] (DEFAULT)[address] [facility] [place] [address] Lymphocytes/100 WBC (Bld) 49 % Normal [facility] Comment on above: Order Comment: BAL c onsultIf > 15% lymphocytes - please send for flow. Performed By: #### B ALC ####[facility] (DEFAULT)[address] [facility] [place] [place] [address] Neutrophils/100 WBC (Bld) 18 % Normal [facility] Comment on above: Order Comment: BAL c onsultIf > 15% lymphocytes - please send for flow. Performed By: #### B ALC ####[facility] (DEFAULT)[address] [facility] [place] [place] [address] ALVEOLAR MACROPHAGES 32 % Normal [facility] Comment on above: Order Comment: BAL c onsult for cell differential and pathologist review. Please do flow cytometry if > 12% lymphocytes Performed By: #### B ALC ####[facility] (DEFAULT)[address] [facility] [place] [place] [address] Bal comments Correlation with microbiology stains and cultures is recommended. Normal [facility] Comment on above: Order Comment: BAL c onsult for cell differential and pathologist review. Please do flow cytometry if > 12% lymphocytes Performed By: #### B ALC ####[facility] (DEFAULT)[address] [facility] [place] [address] Bal Diff Quik Stain Quality Check Acceptable Normal [facility] Comment on above: Order Comment: BAL c onsult for cell differential and pathologist review. Please do flow cytometry if > 12% lymphocytes Performed By: #### B ALC ####[facility] (DEFAULT)[address] [facility] [place] [address] Bal Reviewed By: Leonardo Peralta MD [facility] Comment on above: Order Comment: BAL c onsult for cell differential and pathologist review. Please do flow cytometry if > 12% lymphocytes Performed By: #### B ALC ####[facility] (DEFAULT)[address] [facility] [place] [address] BKR BAL INTERPRETATION Cellular specimen comprised of alveolar macrophages and small lymphocytes. No definitive microorganisms are observed. Moderate degenerative changes. Normal [facility] Comment on above: Order Comment: BAL c onsult for cell differential and pathologist review. Please do flow cytometry if > 12% lymphocytes Performed By: #### B ALC ####[facility] (DEFAULT)[address] [facility] [place] [place] [address] BKR DX CODE Use Ordering Normal [facility] Comment on above: Order Comment: BAL c onsult for cell differential and pathologist review. Please do flow cytometry if > 12% lymphocytes Performed By: #### B ALC ####[facility] (DEFAULT)[address] [facility] [place] [address] Eosinophils/100 WBC (Bld) 0 % Normal [facility] Comment on above: Order Comment: BAL c onsult for cell differential and pathologist review. Please do flow cytometry if > 12% lymphocytes Performed By: #### B ALC ####[facility] (DEFAULT)[address] [facility] [place] [address] Lymphocytes/100 WBC (Bld) 57 % Normal [facility] Comment on above: Order Comment: BAL c onsult for cell differential and pathologist review. Please do flow cytometry if > 12% lymphocytes Performed By: #### B ALC ####[facility] (DEFAULT)[address] [facility] [place] [address] Neutrophils/100 WBC (Bld) 11 % Normal [facility] Comment on above: Order Comment: BAL c onsult for cell differential and pathologist review. Please do flow cytometry if > 12% lymphocytes Performed By: #### B ALC ####[facility] (DEFAULT)[address] [facility] [place] [address] BRONCHOSCOPYon 09-02-2023 Radiology Study observation (narrative) [facility] Bacteria identified Cx Nom ( Bld)on 09-02-2023 Bacteria identified Cx Nom (Unsp spec) NO GROWTH DAY 5 OF 5 [facility] CBC,PLATELETSon 09-02-2023 Hematocrit (Bld) [Volume fraction] 39.9 % Normal 39.6-48.8 [facility] Comment on above: Performed By: #### H EMOGC ####[facility] (DEFAULT)[address] [facility] [place] [address] Hemoglobin (Bld) [Mass/Vol] 12.9 g/dL Low 13.4-16.8 [facility] Comment on above: Performed By: #### H EMOGC ####[facility] (DEFAULT)[address] [facility] [place] [place] [address] MCV (RBC) [Entitic vol] 86.4 fL Normal 79.0-94.5 [facility] Comment on above: Performed By: #### H EMOGC ####[facility] (DEFAULT)[address] [facility] [place] [place] [address] Mean Cell Hgb 27.9 pg Normal 26.1-33.3 [facility] Comment on above: Performed By: #### H EMOGC ####[facility] (DEFAULT)[address] [facility] [place] [place] [address] Mean Cell Hgb Conc 32.3 g/dL Normal 31.9-36.5 [facility] Comment on above: Performed By: #### H EMOGC ####[facility] (DEFAULT)[address] [facility] [place] [place] [address] Platelet mean volume (Bld) [Entitic vol] 9.5 fL Normal 8.7-12.3 [facility] Comment on above: Performed By: #### H EMOGC ####[facility] (DEFAULT)[address] [facility] [place] [place] [address] Platelets (Bld) [#/Vol] 210 10*3/uL Normal 146-337 [facility] Comment on above: Performed By: #### H EMOGC ####[facility] (DEFAULT)[address] [facility] [place] [place] [address] RBC (Bld) [#/Vol] 4.62 10*6/uL Normal 4.38-5.83 [facility] Comment on above: Performed By: #### H [facility] ####[facility] (DEFAULT)[address] [facility] [place] [address] RBC Distribution 13.2 % Normal 10.9-14.3 [facility] Comment on above: Performed By: #### H [facility] ####[facility] (DEFAULT)[address] [facility] [place] [address] WBC (Bld) [#/Vol] 4.12 10*3/uL Normal 3.73-10.10 [facility] Comment on above: Performed By: #### H [facility] ####[facility] (DEFAULT)[address] [facility] [place] [address] Erythrocyte distribution width (RBC) [Ratio] 13.2 % 10.9 - 14.3 % [facility] Hematocrit (Bld) [Volume fraction] 39.9 % 39.6 - 48.8 % [facility] Hemoglobin (Bld) [Mass/Vol] 12.9 g/dL Low 13.4 - 16.8 g/dL [facility] Interpretation and review of laboratory results Abnormal [facility] MCH (RBC) [Entitic mass] 27.9 pg 26.1 - 33.3 pg [facility] MCHC (RBC) [Mass/Vol] 32.3 g/dL 31.9 - 36.5 g/dL [facility] MCV (RBC) [Entitic vol] 86.4 fL 79.0 - 94.5 fL [facility] Platelet mean volume (Bld) [Entitic vol] 9.5 fL 8.7 - 12.3 fL [facility] Platelets (Bld) [#/Vol] 210 10*3/uL 146 - 337 K/uL [facility] RBC (Bld) [#/Vol] 4.62 10*6/uL [facility] WBC (Bld) [#/Vol] 4.12 10*3/uL 3.73 - 10. 10 K/uL [facility] CHEM 7 (LYTES,BUN,CREA,GLUC) on 09-02-2023 Anion gap [Moles/Vol] 13 mmol/L Normal 7-17 [facility] Comment on above: Performed By: #### H ANTWAN MGO CHM7 ####[facility] (DEFAULT)[address] [facility] [place] [address] Chloride [Moles/Vol] 105 mmol/L Normal 98-108 [facility] Comment on above: Performed By: #### H ANTWAN MGO CHM7 ####[facility] (DEFAULT)[address] [facility] [place] [address] CO2 [Moles/Vol] 22 mmol/L Normal 21-31 [facility] Comment on above: Performed By: #### H FP MGOHELENM7 ####[facility] (DEFAULT)[address] [facility] [place] [address] Creatinine [Mass/Vol] 1.25 mg/dL Normal 0.70-1.30 [facility] Comment on above: Performed By: #### H FP MGO CHM7 ####[facility] (DEFAULT)[address] [place] [address] GFR/1.73 sq M.predicted among non-blacks MDRD (S/P/Bld) [Vol rate/Area] 69 mL/min/{1.73_m2} Normal >=60 [facility] Comment on above: Result Comment: Repo rted eGFR is based on the CKD-EPI 2020 equation using creatinine, age, and sex. Performed By: #### H FP MGO, CHM7 ####[facility] (DEFAULT)[address] [facility] [place] [address] Glucose [Mass/Vol] 105 mg/dL High 70-99 [facility] Comment on above: Performed By: #### H FP MGO, CHM7 ####[facility] (DEFAULT)[address] [place] [address] Osmolality [Osmolality] 287 mosm/kg Normal 278-305 [facility] Comment on above: Performed By: #### H ANTWAN MGO CHM7 ####[facility] (DEFAULT)[address] [place] [address] Potassium [Moles/Vol] 4.3 mmol/L Normal 3.5-5.0 [facility] Comment on above: Performed By: #### H ANTWAN MGRogelio CHM7 ####[facility] (DEFAULT)[address] [place] [address] Sodium [Moles/Vol] 136 mmol/L Normal 135-145 [facility] Comment on above: Performed By: #### DOMENICA MCKINNON CHM7 ####[facility] (DEFAULT)[address] [place] [address] Urea nitrogen [Mass/Vol] 16 mg/dL Normal 7-25 [facility] Comment on above: Performed By: #### Lydia MONCADA MGRogelio CHM7 ####[facility] (DEFAULT)[address] [place] [address] Urea nitrogen/Creatinine [Mass ratio] 13 mg/mg Normal [facility] Comment on above: Performed By: #### Lydia MONCADA MGO CHM7 ####[facility] (DEFAULT)[address] [place] [address] Anion gap [Moles/Vol] 13 mmol/L 7 - 17 mmol/L [facility] Chloride [Moles/Vol] 105 mmol/L 98 - 10 8 mmol/L [facility] CO2 [Moles/Vol] 22 mmol/L 21 - 31 mmol/L [facility] Creatinine [Mass/Vol] 1.25 mg/dL 0.70 - 1.30 mg/dL [facility] eGFR, CKD-EPI, Male 69 - [facility] Glucose [Mass/Vol] 105 mg/dL High 70 - 99 mg/dL [facility] Osmolality Calc [Osmolality] 287 [facility] Potassium [Moles/Vol] 4.3 mmol/L 3.5 - 5.0 mmol/L [facility] Sodium [Moles/Vol] 136 mmol/L 135 - 145 mmol/L [facility] Urea nitrogen [Mass/Vol] 16 mg/dL 7 - 25 mg/dL [facility] Urea nitrogen/Creatinine [Mass ratio] 13 mg/mg [facility] CMV PCR,FLUIDS,URINE,EYE ETC on 09-02-2023 CMV by PCR Result Negative Normal Negative [facility] Comment on above: Result Comment: ---- ADDITIONAL INFORMATION This test was developed and its performance characteristicsdetermined by [facility] in a manner consistent with CLBlood cell Storageirements. This test has not been cleared or approved [facility] U.S. Food and Drug Administration.Test Performed by:[address] Director: Rosendo Bose M.D. Ph.D.; CLIA# [id number] Performed By: #### Y CMV ####[facility] (DEFAULT)[address] [place] [address] CMV BY PCR SOURCE BAL RML Normal [facility] Comment on above: Performed By: #### Y CMV ####[facility] (DEFAULT)[address] [place] [address] CMV by PCR Result Negative Normal Negative [facility] Comment on above: Result Comment: ---- ADDITIONAL INFORMATION This test was developed and its performance characteristicsdetermined by [facility] in a manner consistent with CLIArDiamond CommunicationsireSk[employer]ix. This test has not been cleared or approved bythe U.S. Food and Drug Administration.Test Performed by:[address], [place], [place] [address]Xfv Director: Rosendo Bose M.D. Ph.D.; CLIA# [id number] Performed By: #### Y CMV ####[facility] (DEFAULT)[address] [place] [address] CMV BY PCR SOURCE BAL LLL Normal [facility] Comment on above: Performed By: #### Y CMV ####[facility] (DEFAULT)[address] [place] [address] CYTOLOGY, NON-GYNon 09-02-20 CYTOLOGIC DIAGNOSIS [facility] Comment on above: Result Comment: A. B RONCHOALVEOLAR LAVAGE, LEFT LOWER LOBE (CYTOLOGY):FINAL DIAGNOSIS:No Malignant Cells Are IdentifiedHypocellular Specimen Performed By: #### N ONGNGRAEMEFNA ####[facility] (DEFAULT)[address] [place] [address] Case Report [facility] Comment on above: Result Comment: Medi abhishek Cytology Report Case: [id number] Provider: Crow Diaz MD Collected: 09/02/2023 08:38 AMOrdering Location: [facility] Received: 09/02/2023 10:44 AMPathologist: KENTON Caglepecimen: BRONCHOALVEOLAR LAVAGE, LLL BAL Performed By: #### N ONGNNONFNA ####[facility] (DEFAULT)[address] [place] [address] Clinical History Renal transplant. Normal [facility] Comment on above: Performed By: #### N ONGNNONFNA ####[facility] (DEFAULT)[address] [place] [address] Gross Description Normal [facility] Comment on above: Result Comment: LLL BAL1 ml hazy colorless fld unfixed1 TP slide Pap stainFor Immediate Release to Patient's MyChart? Yes Performed By: #### N ONGNNONFNA ####[facility] (DEFAULT)[address] [place] [address] FUNGUS CULTUREon 09-02-2023 Bacteria identified Cx Nom (Unsp spec) Normal [facility] Comment on above: Order Comment: Ident ification was performed on the MALDI-TOF mass spectrometer Infolinksyper. This test was developed by The Clinical Microbiology Laboratory at [facility]. It has not been cleared or approved by the FDA. The laboratory is regulated under CLIA as qualified to perform high-complexity testing. This test is used for clinical purposes. It should not be regarded as investigational or for research. Result Comment: Grow [id number] [place] Histoplasma capsulatum Performed By: #### F UN ####[facility] (DEFAULT)[address] [place] [address] Bacteria identified Cx Nom (Unsp spec) NO GROWTH DAY 28 OF 28 Normal [facility] Comment on above: Order Comment: BAL f ungal culture Performed By: #### F UN ####[facility] (DEFAULT)[address] [place] [address] HEPATIC FUNCTION PANELon Albumin [Mass/Vol] 3.2 g/dL Low 3.5-5.0 [facility] Comment on above: Performed By: #### H FP MGRogelio, CHM7 ####[facility] (DEFAULT)[address] [place] [address] ALP [Catalytic activity/Vol] 107 U/L Normal 32-126 [facility] Comment on above: Performed By: #### H FP, MGO, CHM7 ####[facility] (DEFAULT)[address] [place] [address] ALT [Catalytic activity/Vol] 20 U/L Normal 10-52 [facility] Comment on above: Performed By: #### H FP, MGRogelio CHM7 ####[facility] (DEFAULT)[address] [place] [address] AST [Catalytic activity/Vol] 31 U/L Normal 10-39 [facility] Comment on above: Performed By: #### H ANTWAN MGO CHM7 ####[facility] (DEFAULT)[address] [place] [address] Bilirubin [Mass/Vol] 1.0 mg/dL Normal <1.5 [facility] Comment on above: Performed By: #### H ANTWAN MGHELEN MercadoM7 ####[facility] (DEFAULT)[address] [place] [address] Bilirubin.indirect [Mass/Vol] 0.3 mg/dL High <0.3 [facility] Comment on above: Performed By: #### H ANTWAN MGHELEN MercadoM7 ####[facility] (DEFAULT)[address] [place] [address] Protein [Mass/Vol] 6.6 g/dL Normal 6.4-8.3 [facility] Comment on above: Performed By: #### H ANTWAN MGRogelio CHM7 ####[facility] (DEFAULT)[address] [place] [address] Albumin [Mass/Vol] 3.2 g/dL Low 3.5 - 5.0 g/dL [facility] ALP [Catalytic activity/Vol] 107 U/L 32 - 126 U/L [facility] ALT [Catalytic activity/Vol] 20 U/L 10 - 52 U/L [facility] AST [Catalytic activity/Vol] 31 U/L 10 - 39 U/L [facility] Bilirubin [Mass/Vol] 1.0 mg/dL NINF - 1.5 mg/dL [facility] Bilirubin.direct [Mass/Vol] 0.3 mg/dL High NINF - 0.3 mg/dL [facility] Protein [Mass/Vol] 6.6 g/dL 6.4 - 8.3 g/dL [facility] HISTOPLASMA ANTIGEN, FLUIDon 09-02-2023 FH SOURCE BAL RML Normal [facility] Comment on above: Performed By: #### Y FHST ####[facility] (DEFAULT)[address] [facility] [place] [address] Histo FLD interpretation Negative Normal [facility] Comment on above: Result Comment: ---- ADDITIONAL INFORMATION Reference interval: None DetectedReportable Range: Positive Results reported in ng/mL from0.20 ng/mL to 20.00 ng/mLPositive Results above 20.00 ng/mL are reported as 'Abovethe Limit of Quantification'Cross-reactions occur with Blastomyces spp., Coccidioidesspp., and Paracoccidioides brasiliensis.This test was developed and its performance characteristicsdetermined by [facility]. It has not beencleared or approved by the FDA; however, FDA clearance orapproval is not currently required for clinical use. Theresults are not intended to be used as the sole means forclinical diagnosis or patient management decisions.Test Performed by:[facility] [place] [address] [place] [address] Performed By: #### Y FHST ####[facility] (DEFAULT)[address] [facility] [place] [address] Histoplasma Antigen, FLUID Not detected Normal [facility] Comment on above: Performed By: #### Y FHST ####[facility] (DEFAULT)[address] [facility] [place] [address] HISTOPLASMA ANTIGEN,URINEon 09-02-2023 H. capsulatum Ag (U) [Mass/Vol] Not detected ng/mL [facility] H. capsulatum Ag IA Ql (U) Not detected Not Detected [facility] HISTOPLASMA CAPSULATUM/BLAST OMYCES SPECIES,PCR FLUIDon 10-04-2023 HISTO/BLASTO RESULT Negative Normal Not Applicable [facility] Comment on above: Result Comment: A Ne gative result from BAL fluid does not rule out thepresence of Histoplasma capsulatum because the sensitivity from this source is suboptimal. ADDITIONAL INFORMATION This test was developed and its performance characteristicsdetermined by [facility] in a manner consistent with CLIArequirements. This test has not been cleared or approved bythe U.S. Food and Drug Administration.Test Performed by:[address] Director: Rosendo Bose M.D. Ph.D.; CLIA# [id number] Performed By: #### Y HBRP ####[facility] (DEFAULT)[address] [place] [address] Source BAL RML Normal [facility] Comment on above: Performed By: #### Y HBRP ####[facility] (DEFAULT)[address] [place] [address] HIV 1 AND 2 ANTIBODIES/P24 A NTIGENOrdered By: Wilma Luque on 09-02-2023 HIV 1+2 Ab+HIV1 p24 Ag IA Ql Non-Reactive Non Reactive [facility] Interpretation and review of laboratory results Normal [facility] HIV 1 AND 2 ANTIBODIES/P24 A NTIGENon 09-02-2023 HIV-1/HIV-2 Ab With p24 Antigen Non-Reactive Normal Non Reactive [facility] Comment on above: Performed By: #### L [id number] ####[facility] (DEFAULT)[address] [place] [address] LEGIONELLA CULTUREon 023 Bacteria identified Cx Nom (Unsp spec) NO GROWTH DAY 7 OF 7 Normal [facility] Comment on above: Performed By: #### L EGN ####[facility] (DEFAULT)[address] [place] [address] Bacteria identified Cx Nom (Unsp spec) NO GROWTH DAY 7 OF 7 Normal [facility] Comment on above: Order Comment: BAL l egionella culture Performed By: #### L EGN ####[facility] (DEFAULT)[address] [place] [address] LEGIONELLA PCRon 09-02-2023 Legionella species, Culture BAL RML Normal [facility] Comment on above: Performed By: #### Y LEGRP ####[facility] (DEFAULT)[address] [facility] [place] [address] Legionella, pcr result Negative Normal Not Applicable [facility] Comment on above: Result Comment: ---- ADDITIONAL INFORMATION This test was developed and its performance characteristicsdetermined by [facility] in a manner consistent with CLIArequirements. This test has not been cleared or approved bythe U.S. Food and Drug Administration.Test Performed by:[address] Director: Rosendo Bose M.D. Ph.D.; CLIA# [id number] Performed By: #### Y LEGRP ####[facility] (DEFAULT)[address] [facility] [place] [address] LOWER RESPIRATORY CULTURE, B ACTERIALon 09-02-2023 Bacteria identified Cx Nom (Unsp spec) NO GROWTH DAY 2 OF 2 Normal [facility] Comment on above: Performed By: #### R ES ####[facility] (DEFAULT)[address] [facility] [place] [place] [address] Microscopic observation Gram stain Nom (Unsp spec) Normal [facility] Comment on above: Result Comment: Cyto centrifuge preparationNeutrophils, RareRed Blood Cells PresentNo organisms seen Performed By: #### R ES ####[facility] (DEFAULT)[address] [facility] [place] [address] Bacteria identified Cx Nom (Unsp spec) NO GROWTH DAY 2 OF 2 Normal [facility] Comment on above: Order Comment: BAL b acterial respiratory culture Performed By: #### R ES ####[facility] (DEFAULT)[address] [facility] [place] [address] Microscopic observation Gram stain Nom (Unsp spec) Normal [facility] Comment on above: Order Comment: BAL b acterial respiratory culture Result Comment: Cyto centrifuge preparationNeutrophils, ModerateRed Blood Cells PresentNo organisms seen Performed By: #### R ES ####[facility] (DEFAULT)[address] [place] [address] MAGNESIUMon 09-02-2023 Magnesium [Mass/Vol] 1.7 mg/dL Normal 1.6-2.6 [facility] Comment on above: Performed By: #### H FP, MGO, CHM7 ####[facility] (DEFAULT)[address] [facility] [place] [address] Interpretation and review of laboratory results Normal [facility] Magnesium [Mass/Vol] 1.7 mg/dL 1.6 - 2 .6 mg/dL [facility] No Panel Informationon 09-02 Interpretation and review of laboratory results Abnormal [facility] PNEUMOCYSTIS JIROVECI,PCRon 09-02-2023 PN Report Status DNR Normal [facility] Comment on above: Performed By: #### Y PNRP ####[facility] (DEFAULT)[address] [place] [address] PN Specimen Source BAL RML Normal [facility] Comment on above: Performed By: #### Y PNRP ####[facility] (DEFAULT)[address] [facility] [place] [address] Pneum jiroveci comment DNR Normal [facility] Comment on above: Performed By: #### Y PNRP ####[facility] (DEFAULT)[address] [place] [address] Pneumocystis jiroveci,PCR result Negative Normal Not Applicable [facility] Comment on above: Result Comment: ---- ADDITIONAL INFORMATION This test was developed and its performance characteristicsdetermined by [facility] in a manner consistent with CLIArequirements. This test has not been cleared or approved bythe U.S. Food and Drug Administration.Test Performed by:[facility] [place], [place] [address]Shz Director: Rosendo Bose M.D. Ph.D.; CLIA# [id number] Performed By: #### Y PNRP ####[facility] (DEFAULT)[address] [place] [address] PN Report Status DNR Normal [facility] Comment on above: Performed By: #### Y PNRP ####[facility] (DEFAULT)[address] [place] [address] PN Specimen Source BAL LLL Normal [facility] Comment on above: Performed By: #### Y PNRP ####[facility] (DEFAULT)[address] [place] [address] Pneum jiroveci comment DNR Normal [facility] Comment on above: Performed By: #### Y PNRP ####[facility] (DEFAULT)[address] [place] [address] Pneumocystis jiroveci,PCR result Negative Normal Not Applicable [facility] Comment on above: Result Comment: ---- ADDITIONAL INFORMATION This test was developed and its performance characteristicsdetermined by [facility] in a manner consistent with CLIArequirements. This test has not been cleared or approved bythe U.S. Food and Drug Administration.Test Performed by:[address] [address]Mzz Director: Rosendo Bose M.D. Ph.D.; CLIA# [id number] Performed By: #### Y PN ####[facility] (DEFAULT)[address] [place] [address] TACROLIMUS LEVEL, TROUGH (DC E DRUG LEVEL)on 09-02-2023 Interpretation and review of laboratory results Normal [facility] Tacrolimus (Bld) [Mass/Vol] 4.2 ng/mL [facility] Tacrolimus, Trough 4.2 ng/mL Normal [facility] ow Transplant: 4.0-12.0, Therapeutic: 5.0-15.0 [facility] Comment on above: Order Comment: Pleas e draw at specified interval PRIOR to dose. Do not hold dose to wait for level. Specimens batched twice per day, (M-) and once per day weekendsMethod performed is a chemiluminescent microparticle immunoasssay on the [employer] i2000.The range is based on experience at [facility] and users should be aware that target concentrations vary widely depending on concomitant therapy, time post-transplant, and desired degree of immunosuppression. Performed By: #### T ACRO ####[facility] (DEFAULT)[address] [place] [address] CBC,PLATELETSon 09-01-2023 Hematocrit (Bld) [Volume fraction] 38.9 % Low 39.6-48.8 [facility] Comment on above: Performed By: #### H [facility] ####[facility] (DEFAULT)[address] [place] [address] Hemoglobin (Bld) [Mass/Vol] 12.7 g/dL Low 13.4-16.8 [facility] Comment on above: Performed By: #### H EMO ####[facility] (DEFAULT)[address] [place] [address] MCV (RBC) [Entitic vol] 84.6 fL Normal 79.0-94.5 [facility] Comment on above: Performed By: #### H EMOGC ####[facility] (DEFAULT)[address] [place] [address] Mean Cell Hgb 27.6 pg Normal 26.1-33.3 [facility] Comment on above: Performed By: #### H EMOGC ####[facility] (DEFAULT)[address] [place] [address] Mean Cell Hgb Conc 32.6 g/dL Normal 31.9-36.5 [facility] Comment on above: Performed By: #### H EMOGC ####[facility] (DEFAULT)[address] [facility] [place] [address] Platelet mean volume (Bld) [Entitic vol] 9.4 fL Normal 8.7-12.3 [facility] Comment on above: Performed By: #### H EMOGC ####[facility] (DEFAULT)[address] [facility] [place] [address] Platelets (Bld) [#/Vol] 209 10*3/uL Normal 146-337 [facility] Comment on above: Performed By: #### H EMOGC ####[facility] (DEFAULT)[address] [place] [address] RBC (Bld) [#/Vol] 4.60 10*6/uL Normal 4.38-5.83 [facility] Comment on above: Performed By: #### H EMOGC ####[facility] (DEFAULT)[address] [facility] [place] [address] RBC Distribution 13.4 % Normal 10.9-14.3 [facility] Comment on above: Performed By: #### H EMOGC ####[facility] (DEFAULT)[address] [place] [address] WBC (Bld) [#/Vol] 4.41 10*3/uL Normal 3.73-10.10 [facility] Comment on above: Performed By: #### H EMOGC ####[facility] (DEFAULT)[address] [place] [address] Erythrocyte distribution width (RBC) [Ratio] 13.4 % 10.9 - 14.3 % [facility] Hematocrit (Bld) [Volume fraction] 38.9 % Low 39.6 - 48.8 % [facility] Hemoglobin (Bld) [Mass/Vol] 12.7 g/dL Low 13.4 - 16.8 g/dL [facility] Interpretation and review of laboratory results Abnormal [facility] MCH (RBC) [Entitic mass] 27.6 pg 26.1 - 33.3 pg [facility] MCHC (RBC) [Mass/Vol] 32.6 g/dL 31.9 - 36.5 g/dL [facility] MCV (RBC) [Entitic vol] 84.6 fL 79.0 - 94.5 fL [facility] Platelet mean volume (Bld) [Entitic vol] 9.4 fL 8.7 - 12.3 fL [facility] Platelets (Bld) [#/Vol] 209 10*3/uL 146 - 337 K/uL [facility] RBC (Bld) [#/Vol] 4.60 10*6/uL [facility] WBC (Bld) [#/Vol] 4.41 10*3/uL 3.73 - 10. 10 K/uL [facility] CHEM 7 (LYTES,BUN,CREA,GLUC) on 09-01-2023 Anion gap [Moles/Vol] 14 mmol/L Normal 7-17 [facility] Comment on above: Performed By: #### H DOMENICA MONCADA CHM7 ####[facility] (DEFAULT)[address] [place] [address] Chloride [Moles/Vol] 103 mmol/L Normal 98-108 [facility] Comment on above: Performed By: #### H ANTWAN MGOTJ7 ####[facility] (DEFAULT)[address] [facility] [place] [address] CO2 [Moles/Vol] 21 mmol/L Normal 21-31 [facility] Comment on above: Performed By: #### H ANTWAN MGO CHM7 ####[facility] (DEFAULT)[address] [place] [address] Creatinine [Mass/Vol] 1.16 mg/dL Normal 0.70-1.30 [facility] Comment on above: Performed By: #### H ANTWAN MGO CHM7 ####[facility] (DEFAULT)[address] [facility] [place] [address] GFR/1.73 sq M.predicted among non-blacks MDRD (S/P/Bld) [Vol rate/Area] 76 mL/min/{1.73_m2} Normal >=60 [facility] Comment on above: Result Comment: Repo rted eGFR is based on the CKD-EPI 2020 equation using creatinine, age, and sex. Performed By: #### H ANTWAN MGO CHM7 ####[facility] (DEFAULT)[address] [facility] [place] [address] Glucose [Mass/Vol] 117 mg/dL High 70-99 [facility] Comment on above: Performed By: #### H FP MGO, CHM7 ####[facility] (DEFAULT)[address] [facility] [place] [place] [address] Osmolality [Osmolality] 285 mosm/kg Normal 278-305 [facility] Comment on above: Performed By: #### H FP MGO, CHM7 ####[facility] (DEFAULT)[address] [facility] [place] [place] [address] Potassium [Moles/Vol] 4.2 mmol/L Normal 3.5-5.0 [facility] Comment on above: Performed By: #### H FP, MGO, CHM7 ####[facility] (DEFAULT)[address] [facility] [place] [place] [address] Sodium [Moles/Vol] 134 mmol/L Low 135-145 [facility] Comment on above: Performed By: #### H DOMENICA MONCADA CHM7 ####[facility] (DEFAULT)[address] [facility] [place] [address] Urea nitrogen [Mass/Vol] 18 mg/dL Normal 7-25 [facility] Comment on above: Performed By: #### H DOMENICA MONCADA CHM7 ####[facility] (DEFAULT)[address] [facility] [place] [address] Urea nitrogen/Creatinine [Mass ratio] 16 mg/mg Normal [facility] Comment on above: Performed By: #### H DOMENICA MONCADA CHM7 ####[facility] (DEFAULT)[address] [facility] [place] [address] Anion gap [Moles/Vol] 14 mmol/L 7 - 17 mmol/L [facility] Chloride [Moles/Vol] 103 mmol/L 98 - 10 8 mmol/L [facility] CO2 [Moles/Vol] 21 mmol/L 21 - 31 mmol/L [facility] Creatinine [Mass/Vol] 1.16 mg/dL 0.70 - 1.30 mg/dL [facility] eGFR, CKD-EPI, Male 76 [facility] Glucose [Mass/Vol] 117 mg/dL High 70 - 99 mg/dL [facility] Osmolality Calc [Osmolality] 285 [facility] Potassium [Moles/Vol] 4.2 mmol/L 3.5 - 5.0 mmol/L [facility] Sodium [Moles/Vol] 134 mmol/L Low 135 - 145 mmol/L [facility] Urea nitrogen [Mass/Vol] 18 mg/dL 7 - 25 mg/dL [facility] Urea nitrogen/Creatinine [Mass ratio] 16 mg/mg [facility] CRYPTOCOCCAL ANTIGENon 09-01 Cryptococcus Antigen,Serum Negative Normal Negative [facility] Comment on above: Performed By: #### C RAG ####[facility] (DEFAULT)[address] [place] [address] Cryptococcus sp Ag Ql (S) Negative Negative [facility] Interpretation and review of laboratory results Normal [facility] HEPATIC FUNCTION PANELon Albumin [Mass/Vol] 3.3 g/dL Low 3.5-5.0 [facility] Comment on above: Performed By: #### H FP, MGO, CHM7 ####[facility] (DEFAULT)[address] [place] [address] ALP [Catalytic activity/Vol] 112 U/L Normal 32-126 [facility] Comment on above: Performed By: #### H FP, MGO, CHM7 ####[facility] (DEFAULT)[address] [place] [address] ALT [Catalytic activity/Vol] 21 U/L Normal 10-52 [facility] Comment on above: Performed By: #### H FP, MGO, CHM7 ####[facility] (DEFAULT)[address] [place] [address] AST [Catalytic activity/Vol] 29 U/L Normal 10-39 [facility] Comment on above: Performed By: #### H FP, MGO, CHM7 ####[facility] (DEFAULT)[address] [place] [address] Bilirubin [Mass/Vol] 1.0 mg/dL Normal <1.5 [facility] Comment on above: Performed By: #### H FP, MGO, CHM7 ####[facility] (DEFAULT)[address] [place] [address] Bilirubin.indirect [Mass/Vol] 0.2 mg/dL Normal <0.3 [facility] Comment on above: Performed By: #### H FP, MGO, CHM7 ####[facility] (DEFAULT)[address] [place] [address] Protein [Mass/Vol] 6.8 g/dL Normal 6.4-8.3 [facility] Comment on above: Performed By: #### H DOMENICA MONCADA CHM7 ####[facility] (DEFAULT)[address] [facility] [place] [address] Albumin [Mass/Vol] 3.3 g/dL Low 3.5 - 5.0 g/dL [facility] ALP [Catalytic activity/Vol] 112 U/L 32 - 126 U/L [facility] ALT [Catalytic activity/Vol] 21 U/L 10 - 52 U/L [facility] AST [Catalytic activity/Vol] 29 U/L 10 - 39 U/L [facility] Bilirubin [Mass/Vol] 1.0 mg/dL NINF - 1.5 mg/dL [facility] Bilirubin.direct [Mass/Vol] 0.2 mg/dL NINF - 0.3 mg/dL [facility] Protein [Mass/Vol] 6.8 g/dL 6.4 - 8.3 g/dL [facility] L. pneumophila 1 Ag IA Ql (U )Ordered By: Carolin Miles on 09-01-2023 Interpretation and review of laboratory results Normal [facility] LEGIONELLA URINARY AGOrdered By: Carolin Miles on 09-01-2023 L. pneumophila 1 Ag IA Ql (U) Negative Negative [facility] MAGNESIUMon 09-01-2023 Magnesium [Mass/Vol] 1.6 mg/dL Normal 1.6-2.6 [facility] Comment on above: Performed By: #### H DOMENICA MONCADA CHM7 ####[facility] (DEFAULT)[address] [facility] [place] [address] Interpretation and review of laboratory results Normal [facility] Magnesium [Mass/Vol] 1.6 mg/dL 1.6 - 2 .6 mg/dL [facility] No Panel Informationon 09-01 Interpretation and review of laboratory results Abnormal [facility] PARVOVIRUS (B19) DNA, PCR, B LOODon 09-01-2023 PARVOVIRUS B19 BY RAPID PCR Not detected Normal Not Detected [facility] Comment on above: Result Comment: The primers/probe used in this assay will detectparvovirus B19 and V9 (genotypes 1 # 3) but maynot detect parvovirus genotype 2. The majority ofcirculating Parvovirus B19 strains in the [facility] are genotype 1. Genotype 2 is not believed tocirculate widely in the [facility], but has beenassociated with similar clinical features as genotype1. Genotype 3 is most prevalent in some [place]ancopl[place] regional medical center[place].This test was developed and its analyticalperformance characteristics have been determinedby [place], [place].It has not been cleared or approved by the FDA. Thisassay has been validated pursuant to the CLIAregulations and is used for clinical purposes.Test Performed at:[facility] [place] [id number] Benavides M.D., Ph.D.,Director of Laboratories Performed By: #### Y PRVP ####[facility] (DEFAULT)[address] [place] [address] DC SPEC SOURCE Whole Blood Normal [facility] Comment on above: Performed By: #### Y PRVP ####[facility] (DEFAULT)[address] [address] ASPERGILLUS (GALACTOMANNAN), ANTIGENon 08-31-2023 Aspergillus Antigen <0.500 Normal <0.5 [facility] Comment on above: Result Comment: ---- ADDITIONAL INFORMATION This is a qualitative test and the resulted index value isnot indicative of disease severity. Serial testing isrecommended for patients at high risk for invasiveaspergillosis.This assay was performed using the FDA-cleared [employer] Aspergillus Galactomannan EIA.Test Performed by:[facility] [place], [place] [address]Hyy Director: Rosendo Bose M.D. Ph.D.; CLIA# [id number] Performed By: #### Y ASPR ####[facility] (DEFAULT)[address] [place] [address] CBC,PLATELETSon 08-31-2023 Hematocrit (Bld) [Volume fraction] 39.4 % Low 39.6-48.8 [facility] Comment on above: Performed By: #### H EMOGC ####[facility] (DEFAULT)[address] [facility] [place] [address] Hemoglobin (Bld) [Mass/Vol] 12.8 g/dL Low 13.4-16.8 [facility] Comment on above: Performed By: #### H EMOGC ####[facility] (DEFAULT)[address] [facility] [place] [place] [address] MCV (RBC) [Entitic vol] 85.1 fL Normal 79.0-94.5 [facility] Comment on above: Performed By: #### H EMOGC ####[facility] (DEFAULT)[address] [facility] [place] [address] Mean Cell Hgb 27.6 pg Normal 26.1-33.3 [facility] Comment on above: Performed By: #### H EMOGC ####[facility] (DEFAULT)[address] [facility] [place] [address] Mean Cell Hgb Conc 32.5 g/dL Normal 31.9-36.5 [facility] Comment on above: Performed By: #### H EMOGC ####[facility] (DEFAULT)[address] [facility] [place] [address] Platelet mean volume (Bld) [Entitic vol] 9.6 fL Normal 8.7-12.3 [facility] Comment on above: Performed By: #### H EMOGC ####[facility] (DEFAULT)[address] [facility] [place] [address] Platelets (Bld) [#/Vol] 228 10*3/uL Normal 146-337 [facility] Comment on above: Performed By: #### H EMO ####[facility] (DEFAULT)[address] [facility] [place] [address] RBC (Bld) [#/Vol] 4.63 10*6/uL Normal 4.38-5.83 [facility] Comment on above: Performed By: #### H EMO ####[facility] (DEFAULT)[address] [facility] [place] [address] RBC Distribution 13.3 % Normal 10.9-14.3 [facility] Comment on above: Performed By: #### H EMO ####[facility] (DEFAULT)[address] [facility] [place] [address] WBC (Bld) [#/Vol] 4.77 10*3/uL Normal 3.73-10.10 [facility] Comment on above: Performed By: #### H [facility] ####[facility] (DEFAULT)[address] [facility] [place] [address] Erythrocyte distribution width (RBC) [Ratio] 13.3 % 10.9 - 14.3 % [facility] Hematocrit (Bld) [Volume fraction] 39.4 % Low 39.6 - 48.8 % [facility] Hemoglobin (Bld) [Mass/Vol] 12.8 g/dL Low 13.4 - 16.8 g/dL [facility] Interpretation and review of laboratory results Abnormal [facility] MCH (RBC) [Entitic mass] 27.6 pg 26.1 - 33.3 pg [facility] MCHC (RBC) [Mass/Vol] 32.5 g/dL 31.9 - 36.5 g/dL [facility] MCV (RBC) [Entitic vol] 85.1 fL 79.0 - 94.5 fL [facility] Platelet mean volume (Bld) [Entitic vol] 9.6 fL 8.7 - 12.3 fL [facility] Platelets (Bld) [#/Vol] 228 10*3/uL 146 - 337 K/uL [facility] RBC (Bld) [#/Vol] 4.63 10*6/uL [facility] WBC (Bld) [#/Vol] 4.77 10*3/uL 3.73 - 10. 10 K/uL [facility] CHEM 7 (LYTES,BUN,CREA,GLUC) on 08-31-2023 Anion gap [Moles/Vol] 13 mmol/L Normal 7-17 [facility] Comment on above: Performed By: #### M GO, HFP, CHM7, FERIB, PROCAL ####[facility] (DEFAULT)[address] [facility] [place] [address] Chloride [Moles/Vol] 102 mmol/L Normal 98-108 [facility] Comment on above: Performed By: #### M GO, HFP, CHM7, FERIB, PROCAL ####[facility] (DEFAULT)[address] [facility] [place] [address] CO2 [Moles/Vol] 23 mmol/L Normal 21-31 [facility] Comment on above: Performed By: #### M GO, HFP, CHM7, FERIB, PROCAL ####[facility] (DEFAULT)[address] [facility] [place] [address] Creatinine [Mass/Vol] 1.37 mg/dL High 0.70-1.30 [facility] Comment on above: Performed By: #### M GO, HFP, CHM7, FERIB, PROCAL ####[facility] (DEFAULT)[address] [place] [address] GFR/1.73 sq M.predicted among non-blacks MDRD (S/P/Bld) [Vol rate/Area] 62 mL/min/{1.73_m2} Normal >=60 [facility] Comment on above: Result Comment: Repo rted eGFR is based on the CKD-EPI 2020 equation using creatinine, age, and sex. Performed By: #### M TAVO BLOOM, CHM7, FERIB, PROCAL ####[facility] (DEFAULT)[address] [place] [address] Glucose [Mass/Vol] 112 mg/dL High 70-99 [facility] Comment on above: Performed By: #### M MERLE HFP, CHM7, FERIB, PROCAL ####[facility] (DEFAULT)[address] [place] [address] Osmolality [Osmolality] 284 mosm/kg Normal 278-305 [facility] Comment on above: Performed By: #### Rod BLOOM HFP, CHM7, FERIB, PROCAL ####[facility] (DEFAULT)[address] [place] [address] Potassium [Moles/Vol] 4.4 mmol/L Normal 3.5-5.0 [facility] Comment on above: Performed By: #### Rod BLOOM HFP, CHM7, FERIB, PROCAL ####[facility] (DEFAULT)[address] [place] [address] Sodium [Moles/Vol] 134 mmol/L Low 135-145 [facility] Comment on above: Performed By: #### Rod BLOOM HFP, CHM7, FERIB, PROCAL ####[facility] (DEFAULT)[address] [place] [address] Urea nitrogen [Mass/Vol] 16 mg/dL Normal 7-25 [facility] Comment on above: Performed By: #### Rod BLOOM HFP, CHM7, FERIB, PROCAL ####[facility] (DEFAULT)[address] [facility] [place] [address] Urea nitrogen/Creatinine [Mass ratio] 12 mg/mg Normal [facility] Comment on above: Performed By: #### Rod BLOOM HFP, CHM7, FERIB, PROCAL ####[facility] (DEFAULT)[address] [place] [address] Anion gap [Moles/Vol] 13 mmol/L 7 - 17 mmol/L [facility] Chloride [Moles/Vol] 102 mmol/L 98 - 10 8 mmol/L [facility] CO2 [Moles/Vol] 23 mmol/L 21 - 31 mmol/L [facility] Creatinine [Mass/Vol] 1.37 mg/dL High 0.70 - 1.30 mg/dL [facility] eGFR, CKD-EPI, Male 62 [facility] Glucose [Mass/Vol] 112 mg/dL High 70 - 99 mg/dL [facility] Osmolality Calc [Osmolality] 284 [facility] Potassium [Moles/Vol] 4.4 mmol/L 3.5 - 5.0 mmol/L [facility] Sodium [Moles/Vol] 134 mmol/L Low 135 - 145 mmol/L [facility] Urea nitrogen [Mass/Vol] 16 mg/dL 7 - 25 mg/dL [facility] Urea nitrogen/Creatinine [Mass ratio] 12 mg/mg [facility]BDOMEN/PELVIS WITHOUT CO NTRASTon 08-31-2023 CT ABDOMEN/PELVIS WITHOUT CONTRAST Normal [facility] CT Abdomen and Pelvis WO con traston 08-31-2023 RADIOLOGY RADIOLOGY [facility] Radiology Study observation (narrative) [facility] CT Abdomen and Pelvis WO con trastOrdered By: Chavez Larkin on 08-31-2023 [facility] Work Phone: CT CHEST WITHOUT CONTRASTon 08-31-2023 CT CHEST WITHOUT CONTRAST Normal [facility] CT Chest WO contraston 08-31 RADIOLOGY RADIOLOGY [facility] Radiology Study observation (narrative) [facility] CT Chest WO contrastOrdered By: Daisha Patterson on 08-31-2023 [facility] Work Phone: FERRITINon 08-31-2023 Ferritin [Mass/Vol] 409.0 ng/mL High 10.5 - 3 07.3 ng/mL [facility] Interpretation and review of laboratory results Abnormal [facility] Ferritin [Mass/Vol] 409.0 ng/mL High 10.5-307.3 [facility] Comment on above: Performed By: #### M GO, HFP, CHM7, FERIB, PROCAL ####[facility] (DEFAULT)[address] [facility] [place] [address] HEPATIC FUNCTION PANELon Albumin [Mass/Vol] 3.3 g/dL Low 3.5-5.0 [facility] Comment on above: Performed By: #### M GO, HFP, CHM7, FERIB, PROCAL ####[facility] (DEFAULT)[address] [facility] [place] [place] [address] ALP [Catalytic activity/Vol] 113 U/L Normal 32-126 [facility] Comment on above: Performed By: #### M GO, HFP, CHM7, FERIB, PROCAL ####[facility] (DEFAULT)[address] [facility] [place] [place] [address] ALT [Catalytic activity/Vol] 25 U/L Normal 10-52 [facility] Comment on above: Performed By: #### M GO, HFP, CHM7, FERIB, PROCAL ####[facility] (DEFAULT)[address] [facility] [place] [place] [address] AST [Catalytic activity/Vol] 31 U/L Normal 10-39 [facility] Comment on above: Performed By: #### M GO, HFP, CHM7, FERIB, PROCAL ####[facility] (DEFAULT)[address] [facility] [place] [address] Bilirubin [Mass/Vol] 1.1 mg/dL Normal <1.5 [facility] Comment on above: Performed By: #### M GO, HFP, CHM7, FERIB, PROCAL ####[facility] (DEFAULT)[address] [facility] [place] [place] [address] Bilirubin.indirect [Mass/Vol] 0.3 mg/dL High <0.3 [facility] Comment on above: Performed By: #### M MERLE, HFP, CHM7, FERIB, PROCAL ####[facility] (DEFAULT)[address] [facility] [place] [place] [address] Protein [Mass/Vol] 7.0 g/dL Normal 6.4-8.3 [facility] Comment on above: Performed By: #### M TAVO BLOOM, CHM7, FERIB, PROCAL ####[facility] (DEFAULT)[address] [facility] [place] [address] Albumin [Mass/Vol] 3.3 g/dL Low 3.5 - 5.0 g/dL [facility] ALP [Catalytic activity/Vol] 113 U/L 32 - 126 U/L [facility] ALT [Catalytic activity/Vol] 25 U/L 10 - 52 U/L [facility] AST [Catalytic activity/Vol] 31 U/L 10 - 39 U/L [facility] Bilirubin [Mass/Vol] 1.1 mg/dL NINF - 1.5 mg/dL [facility] Bilirubin.direct [Mass/Vol] 0.3 mg/dL High NINF - 0.3 mg/dL [facility] Protein [Mass/Vol] 7.0 g/dL 6.4 - 8.3 g/dL [facility] LEGIONELLA URINARY AGon Legionella Urinary Antigen Negative Normal Negative [facility] Comment on above: Performed By: #### L EGION ####[facility] (DEFAULT)[address] [facility] [place] [address] MAGNESIUMon 08-31-2023 Magnesium [Mass/Vol] 1.7 mg/dL Normal 1.6-2.6 [facility] Comment on above: Performed By: #### M GO, HFP, CHM7, FERIB, PROCAL ####[facility] (DEFAULT)[address] [place] [address] Interpretation and review of laboratory results Normal [facility] Magnesium [Mass/Vol] 1.7 mg/dL 1.6 - 2 .6 mg/dL [facility] No Panel Informationon 08-31 Interpretation and review of laboratory results Abnormal [facility] PROCALCITONINon 08-31-2023 Interpretation and review of laboratory results Normal [facility] Procalcitonin [Mass/Vol] 0.23 ng/mL NINF - 0.50 ng/mL [facility] Procalcitonin 0.23 ng/mL Normal <0.50 [facility] Comment on above: Result Comment: [...] and trend procalcitonin in various clinical settings. [email or web address] [email or web address] common cutoffs associated with bacterial infections are as follows.Respiratory tract infections: >0.25 ng/mLSepsis/septic shock: >0.5 ng/mLProcalcitonin should not be used alone as a diagnostic tool, however. All procalcitonin results should be interpreted in association with the patients clinical condition and all laboratory findings. Performed By: #### M MERLE, TAVO, CHM7, ANG DOMINIQUE ####[facility] (DEFAULT)[address] [place] [address] TACROLIMUS LEVEL, TROUGH (DC E DRUG LEVEL)Ordered By: Yanira Marcum on 08-31-2023 Interpretation and review of laboratory results Normal [facility] Tacrolimus (Bld) [Mass/Vol] 5.9 ng/mL [facility] TACROLIMUS LEVEL, TROUGH (DC E DRUG LEVEL)on 08-31-2023 Tacrolimus, Trough 5.9 ng/mL Normal [facility] [place] ow Transplant: 4.0-12.0, Therapeutic: 5.0-15.0 [facility] Comment on above: Order Comment: Pleas e draw at specified interval PRIOR to dose. Do not hold dose to wait for level. Specimens batched twice per day, (M-F) and once per day weekendsMethod performed is a chemiluminescent microparticle immunoasssay on the [employer] i2000.The range is based on experience at [facility] and users should be aware that target concentrations vary widely depending on concomitant therapy, time post-transplant, and desired degree of immunosuppression. Performed By: #### T ACRO ####[facility] (DEFAULT)[address] [place] [address] URINE CULTUREOrdered By: Jorge crowe Held on 08-31-2023 Bacteria identified Cx Nom (Unsp spec) No Growth [facility] DARYL AURIS SCREEN BY PCRO rdered By: Mynor Alejandro on 08-30-2023 Daryl auris Screen by PCR Not detected Not Detected [facility] Interpretation and review of laboratory results Normal [facility] CBC,PLATELETSon 08-30-2023 Hematocrit (Bld) [Volume fraction] 41.3 % Normal 39.6-48.8 [facility] Comment on above: Performed By: #### H [facility] ####[facility] (DEFAULT)[address] [place] [address] Hemoglobin (Bld) [Mass/Vol] 13.2 g/dL Low 13.4-16.8 [facility] Comment on above: Performed By: #### H EMOGC ####[facility] (DEFAULT)[address] [place] [address] MCV (RBC) [Entitic vol] 85.5 fL Normal 79.0-94.5 [facility] Comment on above: Performed By: #### H EMOGC ####[facility] (DEFAULT)[address] [place] [address] Mean Cell Hgb 27.3 pg Normal 26.1-33.3 [facility] Comment on above: Performed By: #### H EMOGC ####[facility] (DEFAULT)[address] [facility] [place] [address] Mean Cell Hgb Conc 32.0 g/dL Normal 31.9-36.5 [facility] Comment on above: Performed By: #### H EMOGC ####[facility] (DEFAULT)[address] [facility] [place] [place] [address] Platelet mean volume (Bld) [Entitic vol] 9.2 fL Normal 8.7-12.3 [facility] Comment on above: Performed By: #### H EMOGC ####[facility] (DEFAULT)[address] [facility] [place] [place] [address] Platelets (Bld) [#/Vol] 235 10*3/uL Normal 146-337 [facility] Comment on above: Performed By: #### H EMOGC ####[facility] (DEFAULT)[address] [facility] [place] [address] RBC (Bld) [#/Vol] 4.83 10*6/uL Normal 4.38-5.83 [facility] Comment on above: Performed By: #### H EMOGC ####[facility] (DEFAULT)[address] [facility] [place] [address] RBC Distribution 13.3 % Normal 10.9-14.3 [facility] Comment on above: Performed By: #### H EMOGC ####[facility] (DEFAULT)[address] [facility] [place] [place] [address] WBC (Bld) [#/Vol] 4.96 10*3/uL Normal 3.73-10.10 [facility] Comment on above: Performed By: #### H [facility] ####[facility] (DEFAULT)[address] [place] [address] Erythrocyte distribution width (RBC) [Ratio] 13.3 % 10.9 - 14.3 % [facility] Hematocrit (Bld) [Volume fraction] 41.3 % 39.6 - 48.8 % [facility] Hemoglobin (Bld) [Mass/Vol] 13.2 g/dL Low 13.4 - 16.8 g/dL [facility] Interpretation and review of laboratory results Abnormal [facility] MCH (RBC) [Entitic mass] 27.3 pg 26.1 - 33.3 pg [facility] MCHC (RBC) [Mass/Vol] 32.0 g/dL 31.9 - 36.5 g/dL [facility] MCV (RBC) [Entitic vol] 85.5 fL 79.0 - 94.5 fL [facility] Platelet mean volume (Bld) [Entitic vol] 9.2 fL 8.7 - 12.3 fL [facility] Platelets (Bld) [#/Vol] 235 10*3/uL 146 - 337 K/uL [facility] RBC (Bld) [#/Vol] 4.83 10*6/uL [facility] WBC (Bld) [#/Vol] 4.96 10*3/uL 3.73 - 10. 10 K/uL [facility] CHEM 7 (LYTES,BUN,CREA,GLUC) on 08-30-2023 Anion gap [Moles/Vol] 14 mmol/L Normal 7-17 [facility] Comment on above: Performed By: #### TJ RAMÍREZ7, [facility] ####[facility] (DEFAULT)[address] [place] [address] Chloride [Moles/Vol] 102 mmol/L Normal 98-108 [facility] Comment on above: Performed By: #### NATHANIEL RAMÍREZ, HFP ####[facility] (DEFAULT)[address] [place] [address] CO2 [Moles/Vol] 20 mmol/L Low 21-31 [facility] Comment on above: Performed By: #### NATHANIEL RAMÍREZ, HFP ####[facility] (DEFAULT)[address] [place] [address] Creatinine [Mass/Vol] 1.56 mg/dL High 0.70-1.30 [facility] Comment on above: Performed By: #### NATHANIEL RAMÍREZ, HFP ####[facility] (DEFAULT)[address] [facility] [place] [address] GFR/1.73 sq M.predicted among non-blacks MDRD (S/P/Bld) [Vol rate/Area] 53 mL/min/{1.73_m2} Low >=60 [facility] Comment on above: Result Comment: Repo rted eGFR is based on the CKD-EPI 2020 equation using creatinine, age, and sex. Performed By: #### NATHANIEL RAMÍREZ, HFP ####[facility] (DEFAULT)[address] [facility] [place] [place] [address] Glucose [Mass/Vol] 123 mg/dL High 70-99 [facility] Comment on above: Performed By: #### NATHANIEL RAMÍREZ, HFP ####[facility] (DEFAULT)[address] [facility] [place] [place] [address] Osmolality [Osmolality] 281 mosm/kg Normal 278-305 [facility] Comment on above: Performed By: #### NATHANIEL RAMÍREZ, HFP ####[facility] (DEFAULT)[address] [facility] [place] [place] [address] Potassium [Moles/Vol] 4.3 mmol/L Normal 3.5-5.0 [facility] Comment on above: Performed By: #### NATHANIEL RAMÍREZ, HFP ####[facility] (DEFAULT)[address] [place] [address] Sodium [Moles/Vol] 132 mmol/L Low 135-145 [facility] Comment on above: Performed By: #### M NATHANIEL BLOOM, HFP ####[facility] (DEFAULT)[address] [place] [address] Urea nitrogen [Mass/Vol] 16 mg/dL Normal 7-25 [facility] Comment on above: Performed By: #### M NATHANIEL BLOOM, HFP ####[facility] (DEFAULT)[address] [facility] [place] [place] [address] Urea nitrogen/Creatinine [Mass ratio] 10 mg/mg Normal [facility] Comment on above: Performed By: #### NATHANIEL RAMÍREZ, HFP ####[facility] (DEFAULT)[address] [facility] [place] [address] Anion gap [Moles/Vol] 14 mmol/L 7 - 17 mmol/L [facility] Chloride [Moles/Vol] 102 mmol/L 98 - 10 8 mmol/L [facility] CO2 [Moles/Vol] 20 mmol/L Low 21 - 31 mmol/L [facility] Creatinine [Mass/Vol] 1.56 mg/dL High 0.70 - 1.30 mg/dL [facility] eGFR, CKD-EPI, Male 54 Low - [facility] Glucose [Mass/Vol] 123 mg/dL High 70 - 99 mg/dL [facility] Osmolality Calc [Osmolality] 281 [facility] Potassium [Moles/Vol] 4.3 mmol/L 3.5 - 5.0 mmol/L [facility] Sodium [Moles/Vol] 132 mmol/L Low 135 - 145 mmol/L [facility] Urea nitrogen [Mass/Vol] 16 mg/dL 7 - 25 mg/dL [facility] Urea nitrogen/Creatinine [Mass ratio] 10 mg/mg [facility] EXTRA MICROon 08-30-2023 [facility] HEPATIC FUNCTION PANELon Albumin [Mass/Vol] 3.7 g/dL Normal 3.5-5.0 [facility] Comment on above: Performed By: #### M MERLE CHM7, HFP ####[facility] (DEFAULT)[address] [place] [address] ALP [Catalytic activity/Vol] 115 U/L Normal 32-126 [facility] Comment on above: Performed By: #### M GO CHM7, HFP ####[facility] (DEFAULT)[address] [place] [address] ALT [Catalytic activity/Vol] 22 U/L Normal 10-52 [facility] Comment on above: Performed By: #### M GO CHM7, HFP ####[facility] (DEFAULT)[address] [place] [address] AST [Catalytic activity/Vol] 34 U/L Normal 10-39 [facility] Comment on above: Performed By: #### M GO CHM7, HFP ####[facility] (DEFAULT)[address] [place] [address] Bilirubin [Mass/Vol] 1.2 mg/dL Normal <1.5 [facility] Comment on above: Performed By: #### M GO CHM7, HFP ####[facility] (DEFAULT)[address] [place] [address] Bilirubin.indirect [Mass/Vol] 0.3 mg/dL High <0.3 [facility] Comment on above: Performed By: #### M GO CHM7, HFP ####[facility] (DEFAULT)[address] [place] [address] Protein [Mass/Vol] 7.7 g/dL Normal 6.4-8.3 [facility] Comment on above: Performed By: #### M GO, CHM7, HFP ####[facility] (DEFAULT)[address] [place] [address] Albumin [Mass/Vol] 3.7 g/dL 3.5 - 5.0 g/dL [facility] ALP [Catalytic activity/Vol] 115 U/L 32 - 126 U/L [facility] ALT [Catalytic activity/Vol] 22 U/L 10 - 52 U/L [facility] AST [Catalytic activity/Vol] 34 U/L 10 - 39 U/L [facility] Bilirubin [Mass/Vol] 1.2 mg/dL NINF - 1.5 mg/dL [facility] Bilirubin.direct [Mass/Vol] 0.3 mg/dL High NINF - 0.3 mg/dL [facility] Protein [Mass/Vol] 7.7 g/dL 6.4 - 8.3 g/dL [facility] MAGNESIUMon 08-30-2023 Magnesium [Mass/Vol] 1.8 mg/dL Normal 1.6-2.6 [facility] Comment on above: Performed By: #### M GO, CHM7, [facility] ####[facility] (DEFAULT)[address] [place] [address] Interpretation and review of laboratory results Normal [facility] Magnesium [Mass/Vol] 1.8 mg/dL 1.6 - 2 .6 mg/dL [facility] No Panel Informationon 08-30 Interpretation and review of laboratory results Abnormal [facility] CBC,PLATELETSon 08-29-2023 Hematocrit (Bld) [Volume fraction] 37.6 % Low 39.6-48.8 [facility] Comment on above: Performed By: #### H EMO ####[facility] (DEFAULT)[address] [place] [address] Hemoglobin (Bld) [Mass/Vol] 12.2 g/dL Low 13.4-16.8 [facility] Comment on above: Performed By: #### H EMO ####[facility] (DEFAULT)[address] [place] [address] MCV (RBC) [Entitic vol] 85.1 fL Normal 79.0-94.5 [facility] Comment on above: Performed By: #### H EMOGC ####[facility] (DEFAULT)[address] [facility] [place] [address] Mean Cell Hgb 27.6 pg Normal 26.1-33.3 [facility] Comment on above: Performed By: #### H EMOGC ####[facility] (DEFAULT)[address] [facility] [place] [address] Mean Cell Hgb Conc 32.4 g/dL Normal 31.9-36.5 [facility] Comment on above: Performed By: #### H EMOGC ####[facility] (DEFAULT)[address] [facility] [place] [place] [address] Platelet mean volume (Bld) [Entitic vol] 9.4 fL Normal 8.7-12.3 [facility] Comment on above: Performed By: #### H EMOGC ####[facility] (DEFAULT)[address] [facility] [place] [place] [address] Platelets (Bld) [#/Vol] 233 10*3/uL Normal 146-337 [facility] Comment on above: Performed By: #### H EMOGC ####[facility] (DEFAULT)[address] [facility] [place] [place] [address] RBC (Bld) [#/Vol] 4.42 10*6/uL Normal 4.38-5.83 [facility] Comment on above: Performed By: #### H EMOGC ####[facility] (DEFAULT)[address] [facility] [place] [address] RBC Distribution 13.4 % Normal 10.9-14.3 [facility] Comment on above: Performed By: #### H EMOGC ####[facility] (DEFAULT)[address] [facility] [place] [address] WBC (Bld) [#/Vol] 4.92 10*3/uL Normal 3.73-10.10 [facility] Comment on above: Performed By: #### H [facility] ####[facility] (DEFAULT)[address] [place] [address] Erythrocyte distribution width (RBC) [Ratio] 13.4 % 10.9 - 14.3 % [facility] Hematocrit (Bld) [Volume fraction] 37.6 % Low 39.6 - 48.8 % [facility] Hemoglobin (Bld) [Mass/Vol] 12.2 g/dL Low 13.4 - 16.8 g/dL [facility] Interpretation and review of laboratory results Abnormal [facility] MCH (RBC) [Entitic mass] 27.6 pg 26.1 - 33.3 pg [facility] MCHC (RBC) [Mass/Vol] 32.4 g/dL 31.9 - 36.5 g/dL [facility] MCV (RBC) [Entitic vol] 85.1 fL 79.0 - 94.5 fL [facility] Platelet mean volume (Bld) [Entitic vol] 9.4 fL 8.7 - 12.3 fL [facility] Platelets (Bld) [#/Vol] 233 10*3/uL 146 - 337 K/uL [facility] RBC (Bld) [#/Vol] 4.42 10*6/uL [facility] WBC (Bld) [#/Vol] 4.92 10*3/uL 3.73 - 10. 10 K/uL [facility] CHEM 7 (LYTES,BUN,CREA,GLUC) on 08-29-2023 Anion gap [Moles/Vol] 13 mmol/L Normal 7-17 [facility] Comment on above: Performed By: #### M GO, CHM7, GGTB, HFP ####U [facility] (DEFAULT)[address] [place] [address] Chloride [Moles/Vol] 105 mmol/L Normal 98-108 [facility] Comment on above: Performed By: #### M GO, CHM7, GGTB, HFP ####U [facility] (DEFAULT)[address] [place] [address] CO2 [Moles/Vol] 20 mmol/L Low 21-31 [facility] Comment on above: Performed By: #### M GO, CHM7, GGTB, HFP ####U [facility] (DEFAULT)[address] [place] [address] Creatinine [Mass/Vol] 1.55 mg/dL High 0.70-1.30 [facility] Comment on above: Performed By: #### M GO, CHM7, GGTB, HFP ####U [facility] (DEFAULT)[address] [place] [address] GFR/1.73 sq M.predicted among non-blacks MDRD (S/P/Bld) [Vol rate/Area] 54 mL/min/{1.73_m2} Low >=60 [facility] Comment on above: Result Comment: Repo rted eGFR is based on the CKD-EPI 2020 equation using creatinine, age, and sex. Performed By: #### M GO, CHM7, GGTB, HFP ####U [facility] (DEFAULT)[address] [place] [address] Glucose [Mass/Vol] 108 mg/dL High 70-99 [facility] Comment on above: Performed By: #### M GO, CHM7, GGTB, HFP ####U [facility] (DEFAULT)[address] [place] [address] Osmolality [Osmolality] 283 mosm/kg Normal 278-305 [facility] Comment on above: Performed By: #### M GO, CHM7, GGTB, HFP ####U [facility] (DEFAULT)[address] [place] [address] Potassium [Moles/Vol] 4.5 mmol/L Normal 3.5-5.0 [facility] Comment on above: Performed By: #### M GO, CHM7, GGTB, HFP ####[facility] (DEFAULT)[address] [facility] [place] [address] Sodium [Moles/Vol] 133 mmol/L Low 135-145 [facility] Comment on above: Performed By: #### M GO, CHM7, GGTB, HFP ####[facility] (DEFAULT)[address] [facility] [place] [place] [address] Urea nitrogen [Mass/Vol] 19 mg/dL Normal 7-25 [facility] Comment on above: Performed By: #### M GO, CHM7, GGTB, HFP ####[facility] (DEFAULT)[address] [facility] [place] [address] Urea nitrogen/Creatinine [Mass ratio] 12 mg/mg Normal [facility] Comment on above: Performed By: #### M GO, CHM7, GGTB, HFP ####[facility] (DEFAULT)[address] [facility] [place] [address] Anion gap [Moles/Vol] 13 mmol/L 7 - 17 mmol/L [facility] Chloride [Moles/Vol] 105 mmol/L 98 - 10 8 mmol/L [facility] CO2 [Moles/Vol] 20 mmol/L Low 21 - 31 mmol/L [facility] Creatinine [Mass/Vol] 1.55 mg/dL High 0.70 - 1.30 mg/dL [facility] eGFR, CKD-EPI, Male 55 Low - [facility] Glucose [Mass/Vol] 108 mg/dL High 70 - 99 mg/dL [facility] Osmolality Calc [Osmolality] [facility] Potassium [Moles/Vol] 4.5 mmol/L 3.5 - 5.0 mmol/L [facility] Sodium [Moles/Vol] 133 mmol/L Low 135 - 145 mmol/L [facility] Urea nitrogen [Mass/Vol] 19 mg/dL 7 - 25 mg/dL [facility] Urea nitrogen/Creatinine [Mass ratio] 12 mg/mg [facility] GGTon 08-29-2023 Gamma glutamyl transferase [Catalytic activity/Vol] 64 U/L 8 - 64 U/L [facility] Interpretation and review of laboratory results Normal [facility] Gamma glutamyl transferase [Catalytic activity/Vol] 64 U/L Normal 8-64 [facility] Comment on above: Performed By: #### M GO, CHM7, GGTB, HFP ####[facility] (DEFAULT)[address] [facility] [place] [address] HEPATIC FUNCTION PANELon Albumin [Mass/Vol] 3.3 g/dL Low 3.5-5.0 [facility] Comment on above: Performed By: #### M GO, CHM7, GGTB, HFP ####[facility] (DEFAULT)[address] [place] [address] ALP [Catalytic activity/Vol] 103 U/L Normal 32-126 [facility] Comment on above: Performed By: #### M GO, CHM7, GGTB, HFP ####[facility] (DEFAULT)[address] [place] [address] ALT [Catalytic activity/Vol] 18 U/L Normal 10-52 [facility] Comment on above: Performed By: #### M GO, CHM7, GGTB, HFP ####[facility] (DEFAULT)[address] [place] [address] AST [Catalytic activity/Vol] 27 U/L Normal 10-39 [facility] Comment on above: Performed By: #### M GO, CHM7, GGTB, HFP ####[facility] (DEFAULT)[address] [place] [address] Bilirubin [Mass/Vol] 1.1 mg/dL Normal <1.5 [facility] Comment on above: Performed By: #### M GO, CHM7, GGTB, HFP ####U [facility] (DEFAULT)[address] [facility] [place] [address] Bilirubin.indirect [Mass/Vol] 0.3 mg/dL High <0.3 [facility] Comment on above: Performed By: #### M GO, CHM7, GGTB, HFP ####U [facility] (DEFAULT)[address] [facility] [place] [address] Protein [Mass/Vol] 6.8 g/dL Normal 6.4-8.3 [facility] Comment on above: Performed By: #### M GO, CHM7, GGTB, HFP ####U [facility] (DEFAULT)[address] [facility] [place] [address] Albumin [Mass/Vol] 3.3 g/dL Low 3.5 - 5.0 g/dL [facility] ALP [Catalytic activity/Vol] 103 U/L 32 - 126 U/L [facility] ALT [Catalytic activity/Vol] 18 U/L 10 - 52 U/L [facility] AST [Catalytic activity/Vol] 27 U/L 10 - 39 U/L [facility] Bilirubin [Mass/Vol] 1.1 mg/dL [facility] - 1.5 mg/dL [facility] Bilirubin.direct [Mass/Vol] 0.3 mg/dL High NINF - 0.3 mg/dL [facility] Protein [Mass/Vol] 6.8 g/dL 6.4 - 8.3 g/dL [facility] HISTOPLASMA AND BLASTOMYCES ANTIGEN, ENZYME IMMUNOASSAY, SERMon 08-29-2023 Histoplasma/Blastomy antonia Ag Result Detected Invalid Interpretation Code Not Detected [facility] Comment on above: Result Comment: Anti gen from Histoplasma or Blastomyces (unable todifferentiate) detected. Result should be correlated withclinical presentation, exposure history, and otherdiagnostic procedures, including culture, serology,histopathology, and/or radiographic findings, to aid in thedifferentiation between histoplasmosis and blastomycosis.CRITICAL RESULT Performed By: #### H IBAG ####[facility] (DEFAULT)[address] [facility] [place] [address] Histoplasma/Blastomy antonia Ag Value 5.3 ng/mL Normal [facility] Comment on above: Result Comment: ---- ADDITIONAL INFORMATION This test was developed and its performance characteristicsdetermined by [facility] in a manner consistent with CLIArequirements. This test has not been cleared or approved bythe U.S. Food and Drug Administration.Test Performed by:[address] Director: Rosendo Bose M.D. Ph.D.; CLIA# [id number] Performed By: #### H IBAG ####[facility] (DEFAULT)[address] [facility] [place] [address] HISTOPLASMA ANTIGEN,URINEon 08-29-2023 HISTOPLASM AG, URINE Not detected Normal Not Detected [facility] Comment on above: Result Comment: No H istoplasma antigen detected.False negative results may occur. Repeat testing on anew specimen should be considered if clinically indicated. Performed By: #### Y HISTG ####[facility] (DEFAULT)[address] [facility] [place] [address] Histoplasma Ag Value Not detected Normal [facility] Comment on above: Result Comment: ---- ADDITIONAL INFORMATION This test has been modified from the inspector receiving'sinstructions. Its performance characteristics weredetermined by [facility] in a manner consistent withCLIA requirements. This test has not been cleared orapproved by the U.S. Food and Drug Administration.Test Performed by:[facility] [address] [address] Director: Rosendo Bose M.D. Ph.D.; CLIA# [id number] Performed By: #### Y HISTG ####[facility] (DEFAULT)[address] [place] [address] MAGNESIUMon 08-29-2023 Magnesium [Mass/Vol] 1.7 mg/dL Normal 1.6-2.6 [facility] Comment on above: Performed By: #### M GO, CHM7, GGTB, HFP ####[facility] (DEFAULT)[address] [place] [address] Interpretation and review of laboratory results Normal [facility] Magnesium [Mass/Vol] 1.7 mg/dL 1.6 - 2 .6 mg/dL [facility] No Panel Informationon 08-29 Interpretation and review of laboratory results Abnormal [facility] PT,INR,PTTon 08-29-2023 aPTT Coag (Bld) [Time] 29.3 s Normal 24.0-34.3 [facility] Comment on above: Performed By: #### P TPTT ####[facility] (DEFAULT)[address] [place] [address] INR Coag (PPP) [Relative time] 1.1 {INR} Normal 0.9-1.1 [facility] Comment on above: Performed By: #### P TPTT ####[facility] (DEFAULT)[address] [place] [address] PT Coag (PPP) [Time] 13.8 s Normal 11.9-14.2 [facility] Comment on above: Performed By: #### P TPTT ####[facility] (DEFAULT)[address] [place] [address] aPTT Coag (PPP) [Time] 29.3 s [facility] INR Coag (Bld) [Relative time] 1.1 {INR} 0.9 - 1.1 [facility] Interpretation and review of laboratory results Normal [facility] PT Coag (PPP) [Time] 13.8 s [facility] Portable XR Chest Viewson RADIOLOGY RADIOLOGY [facility] Portable XR Chest ViewsOrder ed By: Gerald Baer on 08-29-2023 [facility] Work Phone: TACROLIMUS LEVEL, TROUGH (DC E DRUG LEVEL)on 08-29-2023 Interpretation and review of laboratory results Normal [facility] Tacrolimus (Bld) [Mass/Vol] 8.9 ng/mL [facility] Tacrolimus, Trough 8.9 ng/mL Normal [facility] [place] Transplant: 4.0-12.0, Therapeutic: 5.0-15.0 [facility] Comment on above: Order Comment: Pleas e draw at specified interval PRIOR to dose. Do not hold dose to wait for level. Specimens batched twice per day, (M-F) and once per day weekendsMethod performed is a chemiluminescent microparticle immunoasssay on the [employer] i2000.The range is based on experience at [facility] and users should be aware that target concentrations vary widely depending on concomitant therapy, time post-transplant, and desired degree of immunosuppression. Performed By: #### T ACRO ####[facility] (DEFAULT)[address] [place] [address] Tacrolimus, Trough 8.7 ng/mL Normal [facility] [place] Transplant: 4.0-12.0, Therapeutic: 5.0-15.0 [facility] Comment on above: Order Comment: Pleas e draw at specified interval PRIOR to dose. Do not hold dose to wait for level. Specimens batched twice per day, (M-F) and once per day weekendsMethod performed is a chemiluminescent microparticle immunoasssay on the [employer] i2000.The range is based on experience at [facility] and users should be aware that target concentrations vary widely depending on concomitant therapy, time post-transplant, and desired degree of immunosuppression. Performed By: #### T ACRO ####[facility] (DEFAULT)[address] [place] [address] TACROLIMUS LEVEL, TROUGH (DC E DRUG LEVEL)Ordered By: Roxanne Louie on 08-29-2023 Interpretation and review of laboratory results Normal [facility] Tacrolimus (Bld) [Mass/Vol] 8.7 ng/mL [facility] URINALYSIS REFLEX TO CULTURE PERFORMABLEon 08-29-2023 Appearance (U) Clear Normal Clear [facility] Comment on above: Order Comment: For i ndwelling catheters, specimen collection is acceptable on catheter day 1 and 2 only. ? Performed By: #### U [id number] ####[facility] (DEFAULT)[address] [place], [place] [address], [place] [address] Bacteria ABSENT Normal ABSENT [facility] Comment on above: Order Comment: For i ndwelling catheters, specimen collection is acceptable on catheter day 1 and 2 only. ? Performed By: #### U [id number] ####[facility] (DEFAULT)[address] [facility] [place] [address] Blood Urine Trace Abnormal Negative [facility] Comment on above: Order Comment: For i ndwelling catheters, specimen collection is acceptable on catheter day 1 and 2 only. ? Performed By: #### U [id number] ####[facility] (DEFAULT)[address] [facility] [place] [address] Calcium Oxalate Crystals PRESENT Normal [facility] Comment on above: Order Comment: For i ndwelling catheters, specimen collection is acceptable on catheter day 1 and 2 only. ? Performed By: #### U [id number] ####[facility] (DEFAULT)[address] [facility] [place] [place] [address] Color (U) Yellow Normal Yellow [facility] Comment on above: Order Comment: For i ndwelling catheters, specimen collection is acceptable on catheter day 1 and 2 only. ? Performed By: #### U [id number] ####[facility] (DEFAULT)[address] [facility] [place] [place] [address] Glucose Ql (U) Negative Normal Negative [facility] Comment on above: Order Comment: For i ndwelling catheters, specimen collection is acceptable on catheter day 1 and 2 only. ? Performed By: #### U [id number] ####[facility] (DEFAULT)[address] [place] [address] Ketones Ql (U) Negative Normal Negative [facility] Comment on above: Order Comment: For i ndwelling catheters, specimen collection is acceptable on catheter day 1 and 2 only. ? Performed By: #### U [id number] ####[facility] (DEFAULT)[address] [facility] [place] [address] Leukocyte esterase Test strip Ql (U) Negative Normal Negative [facility] Comment on above: Order Comment: For i ndwelling catheters, specimen collection is acceptable on catheter day 1 and 2 only. ? Performed By: #### U [id number] ####[facility] (DEFAULT)[address] [facility] [place] [place] [address] Nitrites Urine Negative Normal Negative [facility] Comment on above: Order Comment: For i ndwelling catheters, specimen collection is acceptable on catheter day 1 and 2 only. ? Performed By: #### U [id number] ####[facility] (DEFAULT)[address] [facility] [place] [address] pH (U) 6.0 [pH] Normal 5.0-7.0 [facility] Comment on above: Order Comment: For i ndwelling catheters, specimen collection is acceptable on catheter day 1 and 2 only. ? Performed By: #### U [id number] ####[facility] (DEFAULT)[address] [facility] [place] [address] Protein Urine Negative Normal Negative [facility] Comment on above: Order Comment: For i ndwelling catheters, specimen collection is acceptable on catheter day 1 and 2 only. ? Performed By: #### U [id number] ####[facility] (DEFAULT)[address] [facility] [place] [address] RBC Urine 3-5 Abnormal 0-2 [facility] Comment on above: Order Comment: For i ndwelling catheters, specimen collection is acceptable on catheter day 1 and 2 only. ? Performed By: #### U [id number] ####[facility] (DEFAULT)[address] [facility] [place] [address] Specific [place] Urine 1.015 Normal 1.001-1.035 [facility] Comment on above: Order Comment: For i ndwelling catheters, specimen collection is acceptable on catheter day 1 and 2 only. ? Performed By: #### U [id number] ####[facility] (DEFAULT)[address] [place] [address], [place] [address] Squamous/Epithelial Cells 0-2/hpf Normal 0-2/hpf, 3-5/hpf = 1+ [facility] Comment on above: Order Comment: For i ndwelling catheters, specimen collection is acceptable on catheter day 1 and 2 only. ? Performed By: #### U [id number] ####[facility] (DEFAULT)[address] [place] [address], [place] [address] Urobilinogen Urine 1.0 E.U./dL Normal 0.2 E.U/d L, 1.0 E.U/dL [facility] Comment on above: Order Comment: For i ndwelling catheters, specimen collection is acceptable on catheter day 1 and 2 only. ? Performed By: #### U [id number] ####[facility] (DEFAULT)[address] [place] [address], [place] [address] WBC Urine 0 - 5 Normal 0 - 5 [facility] Comment on above: Order Comment: For i ndwelling catheters, specimen collection is acceptable on catheter day 1 and 2 only. ? Performed By: #### U [id number] ####[facility] (DEFAULT)[address] [facility] [place] [address] URINALYSIS REFLEX TO CULTURE PERFORMABLEOrdered By: Shaji Kelly on 08-29-2023 Appearance (U) Clear Clear [facility] Bacteria LM Ql (Urine sed) ABSENT ABSENT [facility] Calcium Oxalate Crystals PRESENT [facility] Color (U) Yellow Yellow [facility] Epithelial cells.squamous LM Ql (Urine sed) 0-2/hpf 0-2/hpf, 3-5/hpf = 1+ [facility] Glucose Test strip (U) [Mass/Vol] Negative Negative [facility] Interpretation and review of laboratory results Abnormal [facility] Ketones (U) [Mass/Vol] Negative Negative [facility] Leukocyte esterase Test strip Ql (U) Negative Negative [facility] Nitrite Ql (U) Negative Negative [facility] pH (U) 6.0 [pH] 5.0 - 7.0 [facility] Protein (U) [Mass/Vol] Negative Negative [facility] RBC (U) [#/Vol] Trace Abnormal Negative [facility] RBC LM.HPF (Urine sed) [#/Area] 3-5 Abnormal [facility] Specific gravity (U) [Rel density] 1.015 1.001 - 1.035 [facility] Urobilinogen (U) [Mass/Vol] 1.0 E.U./dL 0.2 E.U/dL, 1.0 E.U/dL [facility] WBC LM.HPF (Urine sed) [#/Area] 0 - 5 [facility] URINE CULTUREon 08-29-2023 Bacteria identified Cx Nom (U) No Growth Normal [facility] Comment on above: Order Comment: For i ndwelling catheters, specimen collection is acceptable on catheter day 1 and 2 only. Sung top vacutainer. Urine must be to the fill line to process (4mls). If minimum volume, send urine in a yellow top vacutainer tube. Performed By: #### U R ####[facility] (DEFAULT)[address] [place] [address] US RENAL TRANSPLANT SCANon 0 08-29-2023 US RENAL TRANSPLANT SCAN Normal [facility] US for transplanted kidney l imitedon 08-29-2023 RADIOLOGY RADIOLOGY [facility] Radiology Study observation (narrative) [facility] US for transplanted kidney l imitedOrdered By: Romana Myers on 08-29-2023 [facility] Work Phone: XR CHEST PORTABLEon 08-29-20 23 XR CHEST PORTABLE Normal [facility] BLOOD CULTUREon 08-28-2023 Bacteria identified Cx Nom (Unsp spec) NO GROWTH DAY 5 OF 5 Normal [facility] Comment on above: Order Comment: 2 Bot tles (1 Set - consists of 1 Aerobic bottle and 1 Anaerobic bottle) -1st Peripheral DrawFor syringe method draw:If able to obtain adequate sample (20 ml) inoculate anaerobic bottle firstIf inadequate sample obtained (less than 20 ml) inoculate aerobic bottle firstFor vacutainer method draw: Fill aerobic bottle first, then anaerobic Performed By: #### B LDCULT ####[facility] (DEFAULT)[address] [place] [address] Bacteria identified Cx Nom (Unsp spec) NO GROWTH DAY 5 OF 5 Normal [facility] Comment on above: Order Comment: 2 Bot tles (1 Set - consists of 1 Aerobic bottle and 1 Anaerobic bottle) -1st Peripheral DrawFor syringe method draw:If able to obtain adequate sample (20 ml) inoculate anaerobic bottle firstIf inadequate sample obtained (less than 20 ml) inoculate aerobic bottle firstFor vacutainer method draw: Fill aerobic bottle first, then anaerobic Performed By: #### B LDCULT ####[facility] (DEFAULT)[address] [place] [address] DARYL AURIS SCREEN BY PCRo n 08-28-2023 Daryl auris Screen by PCR Not detected Normal Not Detected [facility] Comment on above: Order Comment: This test was performed using a real-time PCR assay. This test was developed, and its performance characteristics determined by [facility] at [facility]. It has not been cleared or approved by the FDA. The laboratory is regulated under CLIA as qualified to perform high-complexity testing. This test is used for clinical purposes. It should not be regarded as investigational or for research. Performed By: #### C ANDIDA AURIS SCREEN BY PCR ####[facility] (DEFAULT)[address] [place] [address] CBC AND ELECTRONIC DIFFon Abs Baso Auto < Normal 0.00-0.09 [facility] Comment on above: Performed By: #### L [id number] ####[facility] (DEFAULT)[address] [facility] [place] [address] Basophils/100 WBC (Bld) 0.6 % Normal [facility] Comment on above: Performed By: #### L [id number] ####[facility] (DEFAULT)[address] [facility] [place] [place] [address] DIFF STATUS Electronic Differential Normal [facility] Comment on above: Performed By: #### L [id number] ####[facility] (DEFAULT)[address] [facility] [place] [address] Eosinophils (Bld) [#/Vol] 0.10 10*3/uL Normal 0.00-0.48 [facility] Comment on above: Performed By: #### L [id number] ####[facility] (DEFAULT)[address] [facility] [place] [address] Eosinophils/100 WBC (Bld) 2.1 % Normal [facility] Comment on above: Performed By: #### L [id number] ####[facility] (DEFAULT)[address] [facility] [place] [address] Hematocrit (Bld) [Volume fraction] 37.9 % Low 39.6-48.8 [facility] Comment on above: Performed By: #### L [id number] ####[facility] (DEFAULT)[address] [place] [address], [place] [address] Hemoglobin (Bld) [Mass/Vol] 12.4 g/dL Low 13.4-16.8 [facility] Comment on above: Performed By: #### L [id number] ####[facility] (DEFAULT)[address] [facility] [place] [place] [address] Immature Grans % 0.6 % Normal [facility] Comment on above: Performed By: #### L [id number] ####[facility] (DEFAULT)[address] [facility] [place] [place] [address] Immature Grans Absolute < Normal <=0.07 [facility] Comment on above: Performed By: #### L [id number] ####[facility] (DEFAULT)[address] [facility] [place] [address] Lymphocytes (Bld) [#/Vol] 1.76 10*3/uL Normal 0.83-3.57 [facility] Comment on above: Performed By: #### L [id number] ####[facility] (DEFAULT)[address] [facility] [place] [address] Lymphocytes/100 WBC (Bld) 37.1 % Normal [facility] Comment on above: Performed By: #### L [id number] ####[facility] (DEFAULT)[address] [facility] [place] [address] MCV (RBC) [Entitic vol] 85.0 fL Normal 79.0-94.5 [facility] Comment on above: Performed By: #### L [id number] ####[facility] (DEFAULT)[address] [facility] [place] [address] Mean Cell Hgb 27.8 pg Normal 26.1-33.3 [facility] Comment on above: Performed By: #### L [id number] ####[facility] (DEFAULT)[address] [facility] [place] [address] Mean Cell Hgb Conc 32.7 g/dL Normal 31.9-36.5 [facility] Comment on above: Performed By: #### L [id number] ####[facility] (DEFAULT)[address] [facility] [place] [address] Monocytes (Bld) [#/Vol] 0.66 10*3/uL Normal 0.24-0.93 [facility] Comment on above: Performed By: #### L [id number] ####[facility] (DEFAULT)[address] [place] [address] Monocytes/100 WBC (Bld) 13.9 % Normal [facility] Comment on above: Performed By: #### L [id number] ####[facility] (DEFAULT)[address] [place] [address] Nucleated RBC 0.0 /100 WBC Normal <=0.2 [facility] Comment on above: Performed By: #### L [id number] ####[facility] (DEFAULT)[address] [facility] [place] [address] Platelet mean volume (Bld) [Entitic vol] 9.3 fL Normal 8.7-12.3 [facility] Comment on above: Performed By: #### L [id number] ####[facility] (DEFAULT)[address] [facility] [place] [address] Platelets (Bld) [#/Vol] 262 10*3/uL Normal 146-337 [facility] Comment on above: Performed By: #### L [id number] ####[facility] (DEFAULT)[address] [facility] [place] [place] [address] RBC (Bld) [#/Vol] 4.46 10*6/uL Normal 4.38-5.83 [facility] Comment on above: Performed By: #### L [id number] ####[facility] (DEFAULT)[address] [facility] [place] [address] RBC Distribution 13.4 % Normal 10.9-14.3 [facility] Comment on above: Performed By: #### L [id number] ####[facility] (DEFAULT)[address] [facility] [place] [place] [address] Segs + Bands Auto 45.7 % Normal [facility] Comment on above: Performed By: #### L [id number] ####[facility] (DEFAULT)[address] [facility] [place] [address] Segs + Bands,Absolute Auto 2.16 K/uL Normal 1.57-6.19 [facility] Comment on above: Performed By: #### L [id number] ####[facility] (DEFAULT)[address] [place] [address] WBC (Bld) [#/Vol] 4.74 10*3/uL Normal 3.73-10.10 [facility] Comment on above: Performed By: #### L [id number] ####[facility] (DEFAULT)[address] [place] [address] Basophils (Bld) [#/Vol] K/uL 0.00 - 0.09 K/uL [facility] Basophils/100 WBC (Bld) 0.6 % [facility] Differential cell count method Nom (Bld) Electronic Differential [facility] Eosinophils (Bld) [#/Vol] 0.10 10*3/uL 0.00 - 0.48 K/uL [facility] Eosinophils/100 WBC (Bld) 2.1 % [facility] Erythrocyte distribution width (RBC) [Ratio] 13.4 % 10.9 - 14.3 % [facility] Hematocrit (Bld) [Volume fraction] 37.9 % Low 39.6 - 48.8 % [facility] Hemoglobin (Bld) [Mass/Vol] 12.4 g/dL Low 13.4 - 16.8 g/dL [facility] Immature granulocytes (Bld) [#/Vol] K/uL NINF - 0.07 K/uL [facility] Immature granulocytes/100 WBC (Bld) 0.6 % [facility] Interpretation and review of laboratory results Abnormal [facility] Lymphocytes (Bld) [#/Vol] 1.76 10*3/uL 0.83 - 3.57 K/uL [facility] Lymphocytes/100 WBC (Bld) 37.1 % [facility] MCH (RBC) [Entitic mass] 27.8 pg 26.1 - 33.3 pg [facility] MCHC (RBC) [Mass/Vol] 32.7 g/dL 31.9 - 36.5 g/dL [facility] MCV (RBC) [Entitic vol] 85.0 fL 79.0 - 94.5 fL [facility] Monocytes (Bld) [#/Vol] 0.66 10*3/uL 0.24 - 0.93 K/uL [facility] Monocytes/100 WBC (Bld) 13.9 % [facility] Neutrophils (Bld) [#/Vol] 2.16 10*3/uL 1.57 - 6.19 K/uL [facility] Nucleated RBC/100 WBC (Bld) [Ratio] 0.0 % [facility] Platelet mean volume (Bld) [Entitic vol] 9.3 fL 8.7 - 12.3 fL [facility] Platelets (Bld) [#/Vol] 262 10*3/uL 146 - 337 K/uL [facility] RBC (Bld) [#/Vol] 4.46 10*6/uL [facility] Segmented neutrophils/100 WBC (Bld) 45.7 % [facility] WBC (Bld) [#/Vol] 4.74 10*3/uL 3.73 - 10. 10 K/uL [facility] CHEM 6 (LYTES, BUN CREA)on 0 08-28-2023 Anion gap [Moles/Vol] 13 mmol/L Normal 7-17 [facility] Comment on above: Performed By: #### C HM6 ####[facility] (DEFAULT)[address] [place] [address] Chloride [Moles/Vol] 103 mmol/L Normal 98-108 [facility] Comment on above: Performed By: #### C HM6 ####[facility] (DEFAULT)[address] [facility] [place] [address] CO2 [Moles/Vol] 22 mmol/L Normal 21-31 [facility] Comment on above: Performed By: #### C HM6 ####[facility] (DEFAULT)[address] [facility] [place] [address] Creatinine [Mass/Vol] 1.62 mg/dL High 0.70-1.30 [facility] Comment on above: Performed By: #### C HM6 ####[facility] (DEFAULT)[address] [place] [address] GFR/1.73 sq M.predicted among non-blacks MDRD (S/P/Bld) [Vol rate/Area] 51 mL/min/{1.73_m2} Low >=60 [facility] Comment on above: Result Comment: Repo rted eGFR is based on the CKD-EPI 2020 equation using creatinine, age, and sex. Performed By: #### C HM6 ####[facility] (DEFAULT)[address] [facility] [place] [address] Potassium [Moles/Vol] 4.3 mmol/L Normal 3.5-5.0 [facility] Comment on above: Performed By: #### C HM6 ####[facility] (DEFAULT)[address] [facility] [place] [address] Sodium [Moles/Vol] 134 mmol/L Low 135-145 [facility] Comment on above: Performed By: #### C HM6 ####[facility] (DEFAULT)[address] [facility] [place] [place] [address] Urea nitrogen [Mass/Vol] 22 mg/dL Normal 7-25 [facility] Comment on above: Performed By: #### C HM6 ####[facility] (DEFAULT)[address] [facility] [place] [address] Urea nitrogen/Creatinine [Mass ratio] 14 mg/mg Normal [facility] Comment on above: Performed By: #### C HM6 ####[facility] (DEFAULT)[address] [facility] [place] [address] Anion gap [Moles/Vol] 13 mmol/L 7 - 17 mmol/L [facility] Chloride [Moles/Vol] 103 mmol/L 98 - 10 8 mmol/L [facility] CO2 [Moles/Vol] 22 mmol/L 21 - 31 mmol/L [facility] Creatinine [Mass/Vol] 1.62 mg/dL High 0.70 - 1.30 mg/dL [facility] eGFR, CKD-EPI, Male 52 Low - PINF [facility] Interpretation and review of laboratory results Abnormal [facility] Potassium [Moles/Vol] 4.3 mmol/L 3.5 - 5.0 mmol/L [facility] Sodium [Moles/Vol] 134 mmol/L Low 135 - 145 mmol/L [facility] Urea nitrogen [Mass/Vol] 22 mg/dL 7 - 25 mg/dL [facility] Urea nitrogen/Creatinine [Mass ratio] 14 mg[facility]MMUNOCOMPROMISED RESPIRATOR Y PANELon 08-28-2023 Adenovirus - Pcr Not detected Normal Not Detected [facility] Comment on above: Order Comment: [...] multiplex nucleic acid assay. Performed By: #### I CRESP ####[facility] (DEFAULT)[address] [place] [address] Bordetella Parapertussis Not detected Normal Not Detected [facility] Comment on above: Order Comment: [...] multiplex nucleic acid assay. Performed By: #### I CRESP ####[facility] (DEFAULT)[address] [place] [address], [place] [address] Bordetella Pertussis Not detected Normal Not Detected [facility] Comment on above: Order Comment: [...] multiplex nucleic acid assay. Performed By: #### I CRESP ####[facility] (DEFAULT)[address] [place] [address], [place] [address] Chlamydia Pneumoniae Not detected Normal Not Detected [facility] Comment on above: Order Comment: [...] multiplex nucleic acid assay. Performed By: #### I CRESP ####[facility] (DEFAULT)[address] [place] [address], [place] [address] Coronavirus 229E Not detected Normal Not Detected [facility] Comment on above: Order Comment: [...] multiplex nucleic acid assay. Performed By: #### I CRESP ####[facility] (DEFAULT)[address] [place] [address], [place] [address] Coronavirus Hku1 Not detected Normal Not Detected [facility] Comment on above: Order Comment: [...] multiplex nucleic acid assay. Performed By: #### I CRESP ####[facility] (DEFAULT)[address] [place] [address], [place] [address] Coronavirus Nl63 Not detected Normal Not Detected [facility] Comment on above: Order Comment: [...] multiplex nucleic acid assay. Performed By: #### I CRESP ####[facility] (DEFAULT)[address] [place] [address], [place] [address] Coronavirus Oc43 Not detected Normal Not Detected [facility] Comment on above: Order Comment: [...] multiplex nucleic acid assay. Performed By: #### I CRESP ####[facility] (DEFAULT)[address] [place] [address], [place] [address] Influenza A - Pcr Not detected Normal Not Detected [facility] Comment on above: Order Comment: [...] multiplex nucleic acid assay. Performed By: #### I CRESP ####[facility] (DEFAULT)[address] [place] [address], [place] [address] Influenza B - Pcr Not detected Normal Not Detected [facility] Comment on above: Order Comment: [...] multiplex nucleic acid assay. Performed By: #### I CRESP ####[facility] (DEFAULT)[address] [place] [address], [place] [address] Metapneumovirus - Pcr Not detected Normal Not Detected [facility] Comment on above: Order Comment: [...] multiplex nucleic acid assay. Performed By: #### I CRESP ####[facility] (DEFAULT)[address] [place] [address], [place] [address] Mycoplasma Pneumoniae Not detected Normal Not Detected [facility] Comment on above: Order Comment: [...] multiplex nucleic acid assay. Performed By: #### I CRESP ####[facility] (DEFAULT)[address] [place] [address], [place] [address] Parainfluenza 1 - Pcr Not detected Normal Not Detected [facility] Comment on above: Order Comment: [...] multiplex nucleic acid assay. Performed By: #### I CRESP ####[facility] (DEFAULT)[address] [place] [address], [place] [address] Parainfluenza 2 - Pcr Not detected Normal Not Detected [facility] Comment on above: Order Comment: [...] multiplex nucleic acid assay. Performed By: #### I CRESP ####[facility] (DEFAULT)[address] [place] [address], [place] [address] Parainfluenza 3 - Pcr Not detected Normal Not Detected [facility] Comment on above: Order Comment: [...] multiplex nucleic acid assay. Performed By: #### I CRESP ####[facility] (DEFAULT)[address] [place] [address], [place] [address] Parainfluenza 4 - Pcr Not detected Normal Not Detected [facility] Comment on above: Order Comment: [...] multiplex nucleic acid assay. Performed By: #### I CRESP ####[facility] (DEFAULT)[address] [facility] [place] [address] Rhinovirus/Enterovir us - PCR Not detected Normal Not Detected [facility] Comment on above: Order Comment: [...] multiplex nucleic acid assay. Performed By: #### I CRESP ####[facility] (DEFAULT)[address] [place] [address] Rsv - Pcr Not detected Normal Not Detected [facility] Comment on above: Order Comment: [...] multiplex nucleic acid assay. Performed By: #### I CRESP ####[facility] (DEFAULT)[address] [place] [address] SARS-CoV-2 (COVID-19) RNA ESTELITA+probe Ql (Unsp spec) Not detected Normal NOT DETECTED [facility] Comment on above: Order Comment: [...] multiplex nucleic acid assay. Performed By: #### I CRESP ####[facility] (DEFAULT)[address] [place] [address] Portable XR Chest Viewson Radiology Study observation (narrative) [facility] Respiratory virus DNA+RNA NA A+probe Nom (Unsp spec)Ordered By: Dayami Harris on 08-28-2023 Adenovirus DNA ESTELITA+probe Nom (Unsp spec) Not detected Not Detected [facility] B. parapertussis DNA ESTELITA+probe Ql (Unsp spec) Not detected Not Detected [facility] B. pertussis DNA ESTELITA+probe Ql (Unsp spec) Not detected Not Detected [facility] C. pneumoniae DNA ESTELITA+probe Ql (Unsp spec) Not detected Not Detected [facility] FLUAV RNA ESTELITA+probe Ql (Unsp spec) Not detected Not Detected [facility] FLUBV RNA ESTELITA+probe Ql (Unsp spec) Not detected Not Detected [facility] HCoV 229E RNA ESTELITA+non-probe Ql (Nph) Not detected Not Detected [facility] HCoV HKU1 RNA ESTELITA+non-probe Ql (Nph) Not detected Not Detected [facility] HCoV NL63 RNA ESTELITA+non-probe Ql (Nph) Not detected Not Detected [facility] HCoV OC43 RNA ESTELITA+non-probe Ql (Nph) Not detected Not Detected [facility] hMPV A RNA ESTELITA+probe Ql (Unsp spec) Not detected Not Detected [facility] Interpretation and review of laboratory results Normal [facility] M. pneumoniae DNA ESTELITA+probe Ql (Unsp spec) Not detected Not Detected [facility] Parainfluenza virus 1 RNA ESTELITA+probe Ql (Unsp spec) Not detected Not Detected [facility] Parainfluenza virus 2 RNA ESTELITA+probe Ql (Unsp spec) Not detected Not Detected [facility] Parainfluenza virus 3 RNA ESTELITA+probe Ql (Unsp spec) Not detected Not Detected [facility] Parainfluenza virus 4 RNA ESTELITA+probe Ql (Unsp spec) Not detected Not Detected [facility] Rhinovirus+Enterovir us RNA ESTELITA+probe Ql (Unsp spec) Not detected Not Detected [facility] RSV RNA ESTELITA+probe Ql (Unsp spec) Not detected Not Detected [facility] SARS-CoV-2 (COVID-19) RNA ESTELITA+probe Ql (Unsp spec) Not detected NOT DETECTED [facility] ALBUMINon 04-28-2023 Albumin [Mass/Vol] 4.0 g/dL Normal 3.4-5.0 [facility] Comment on above: Performed By: #### C MP #### [facility] [address] [place] [address] Dr. Dwight Waters ALKALINE PHOSPHAon ALP [Catalytic activity/Vol] 106 U/L Normal 46-[address] [facility] Comment on above: Performed By: #### F [id number] #### [facility] [address] [place] [address] Dr. Dwight Waters BILIRUBIN CONJUGATED (DIRECT )on 04-28-2023 BILI, CONJUGATED 0.3 mg/dL Critically high 0.0-0.2 [facility] Comment on above: Performed By: #### C MP #### [facility] [address] [place] [address] Dr. Dwight Waters BILIRUBIN TOTALon 04-28-2023 Bilirubin [Mass/Vol] 1.4 mg/dL Critically high 0.2-1.0 [facility] Comment on above: Performed By: #### C MP #### [facility] [address] [place] [address] Dr. Dwight Waters BUNon 04-28-2023 Urea nitrogen [Mass/Vol] 12.0 mg/dL Normal 7.0-18.0 [facility] Comment on above: Performed By: #### U RTPCR #### [facility] [address] [place] [address] Dr. Dwight Waters CALCIUMon 04-28-2023 Calcium [Mass/Vol] 9.3 mg/dL Normal 8.5-10.1 [facility] Comment on above: Performed By: #### U RTPCR #### [facility] [address] [place] [address] Dr. Dwight Waters CBC AUTO DIFFon 04-28-2023 BASO # 0.1 103/ul Normal 0.0-0.1 [facility] Comment on above: Performed By: #### C BC #### [facility] [address] [place] [address] Dr. Dwight Waters Basophils/100 WBC (Bld) 0.9 % Normal 0.2-2.0 [facility] Comment on above: Performed By: #### C BC #### [facility] [address] [place] [address] Dr. Dwight Waters EO # 0.2 103/ul Normal 0.0-0.7 [facility] Comment on above: Performed By: #### C BC #### [facility] [address] [place] [address] Dr. Dwight Waters Eosinophils/100 WBC (Bld) 3.8 % Normal 0.9-7.0 [facility] Comment on above: Performed By: #### C BC #### [facility] [address] [place] [address] Dr. Dwight Waters Erythrocyte distribution width (RBC) [Ratio] 12.5 % Normal 11.0-15.0 [facility] Comment on above: Performed By: #### C BC #### [facility] [address] [place] [address] Dr. Dwight Waters Hematocrit (Bld) [Volume fraction] 49.8 % Normal 42.0-54.0 [facility] Comment on above: Performed By: #### C BC #### [facility] [address] [place] [address] Dr. Dwight Waters Hemoglobin (Bld) [Mass/Vol] 16.4 g/dL Normal 14.0-18.0 [facility] Comment on above: Performed By: #### C BC #### [facility] [address] [place] [address] Dr. Dwight Waters IG # 0.01 10e3/ul Normal 0.00-0.[address] [facility] Comment on above: Performed By: #### C BC #### [facility] [address] [place] [address] Dr. Dwight Waters IG % 0.2 % Normal 0.0-0.[address] [facility] Comment on above: Performed By: #### C BC #### [facility] [address] [place] [address] Dr. Dwight Waters LYMPH # 2.1 103/ul Normal 1.2-3.8 [facility] Comment on above: Performed By: #### C BC #### [facility] [address] [place] [address] Dr. Dwight Waters Lymphocytes/100 WBC (Bld) 39.1 % Normal 20.5-60.0 [facility] Comment on above: Performed By: #### C BC #### [facility] [address] [place] [address] Dr. Dwight Waters MANUAL DIFF REQ NO Normal [facility] Comment on above: Performed By: #### C BC #### [facility] [address] [place] [address] Dr. Dwight Waters MCH (RBC) [Entitic mass] 28.6 pg Normal 25.9-34.0 [facility] Comment on above: Performed By: #### C BC #### [facility] [address] [place] [address] Dr. Dwight Waters MCHC (RBC) [Mass/Vol] 32.9 g/dL Normal 29.9-35.2 [facility] Comment on above: Performed By: #### C BC #### [facility] [address] [place] [address] Dr. Dwight Waters MCV (RBC) [Entitic vol] 86.9 fL Normal 80.0-94.0 [facility] Comment on above: Performed By: #### C BC #### [facility] [address] [place] [address] Dr. Dwight Waters MONO # 0.6 103/ul Normal 0.3-0.8 [facility] Comment on above: Performed By: #### C BC #### [facility] [address] [place] [address] Dr. Dwight Waters Monocytes/100 WBC (Bld) 10.6 % Normal 1.7-12.0 [facility] Comment on above: Performed By: #### C BC #### [facility] [address] [place] [address] Dr. Dwight Waters NEUT # 2.5 103/ul Normal 1.4-6.5 [facility] Comment on above: Performed By: #### C BC #### [facility] [address] [address] [address] Dwight Waters Neutrophils/100 WBC (Bld) 45.4 % Normal 43.0-75.0 [facility] Comment on above: Performed By: #### C BC #### [facility] [address] [place] [address] Dr. Dwight Waters Platelet mean volume (Bld) [Entitic vol] 9.3 fL Critically low 9.5-13.5 [facility] Comment on above: Performed By: #### C BC #### [facility] [address] [place] [address] Dr. Dwight Waters PLT 248 103/ul Normal 150-[address] [facility] Comment on above: Performed By: #### C BC #### [facility] [address] [place] [address] Dr. Dwight Waters RBC 5.73 106/ul Normal 4.70-6.[address] [facility] Comment on above: Performed By: #### C BC #### [facility] [address] [place] [address] Dr. Dwight Waters WBC 5.5 103/ul Normal 4.0-11.[address] [facility] Comment on above: Performed By: #### C BC #### [facility] [address] [place] [address] Dr. Dwight Waters CHLORIDEon 04-28-2023 Chloride [Moles/Vol] 107 mmol/L Normal 98-[address] [facility] Comment on above: Performed By: #### U RTPCR #### [facility] [address] [place] [address] Dr. Dwight Waters CO2on 04-28-2023 CO2 [Moles/Vol] 28.9 mmol/L Normal 21.0-32.[address] [facility] Comment on above: Performed By: #### U RTPCR #### [facility] [address] [place] [address] Dr. Dwight Waters CREATININEon 04-28-2023 Creatinine [Mass/Vol] 1.17 mg/dL Normal 0.70-1.30 [facility] Comment on above: Performed By: #### U RTPCR #### [facility] [address] [place] [address] Dr. Dwight Waters EGFR-AF SPANISH >60 Normal >=60 [facility] Comment on above: Performed By: #### U RTPCR #### [facility] [address] [place] [address] Dr. Dwight Waters EGFR-NON AF SPANISH >60 Normal >=60 [facility] Comment on above: Performed By: #### U RTPCR #### [facility] [address] [place] [address] Dr. Dwight Waters GGTon 04-28-2023 Gamma glutamyl transferase [Catalytic activity/Vol] 27 U/L Normal 15-85 [facility] Comment on above: Performed By: #### U RTPCR #### [facility] [address] [place] [address] Dr. Dwight Waters GLUCOSE BLOODon 04-28-2023 Glucose [Mass/Vol] 110 mg/dL Critically high 74-106 [facility] Comment on above: Performed By: #### U RTPCR #### [facility] [address] [place] [address] Dr. Dwight Waters MAGNESIUMon 04-28-2023 Magnesium [Mass/Vol] 1.7 mg/dL Critically low 1.8-2.4 [facility] Comment on above: Performed By: #### U RTPCR #### [facility] [address] [place] [address] Dr. Dwight Waters NAon 04-28-2023 Sodium [Moles/Vol] 144 mmol/L Normal 136-145 [facility] Comment on above: Performed By: #### U RTPCR #### [facility] [address] [place] [address] Dr. Dwight Waters PHOSPHORUSon 04-28-2023 Phosphate [Mass/Vol] 3.2 mg/dL Normal 2.6-4.7 [facility] Comment on above: Performed By: #### U RTPCR #### [facility] [address] [place] [address] Dr. Dwight Waters POTASSIUMon 04-28-2023 Potassium [Moles/Vol] 4.0 mmol/L Normal 3.5-5.1 [facility] Comment on above: Performed By: #### U RTPCR #### [facility] [address] [place] [address] Dr. Dwight Waters SGOTon 04-28-2023 AST [Catalytic activity/Vol] 25 U/L Normal 15-37 [facility] Comment on above: Performed By: #### C MP #### [facility] [address] [place] [address] Dr. Dwight Waters SGPTon 04-28-2023 ALT [Catalytic activity/Vol] 40 U/L Normal 16-63 [facility] Comment on above: Performed By: #### C MP #### [facility] [address] [place] [address] Dr. Dwight Waters URINE T PROTEIN CREAT RATIOo n 04-28-2023 Protein (U) [Mass/Vol] 10.1 mg/dL Normal <=12.0 [facility] Comment on above: Performed By: #### U RTPCR #### [facility] [address] [place] [address] Dr. Dwight Waters UR PROT CREAT RAT 0.14 Normal [facility] Comment on above: Performed By: #### U RTPCR #### [facility] [address] [place] [address] Dr. Dwight Waters URINE CREAT 74.40 mg/dL Normal 20.00-300.00 [facility] Comment on above: Performed By: #### U RTPCR #### [facility] [address] [place] [address] Dr. Dwight Waters Office Visiton 04-13-2023 Follow-up visit [id number] George Styles 1970 M Date Provider Department Center 04/13/[address] [facility] Family History Problem Relation Age of Onset Coronary artery disease Mother Coronary artery disease Father Family Status - Relation Status Age at Mother Father Level of Service:06927 DC OFFICE/OUTPATIENT ESTABLISHED LOW MDM 20-29 MIN Reason for Visit and Comments: Hypertension [667210] Hyperlipidemia [182] Normal [facility] BK VIRUS PCR QUANTon 023 BKV DNA QUANT PCR PLASMA Negative Normal Negative [facility] Comment on above: Result Comment: No B K DNA detected. . The linear range of the assay is 22 - 100,000,000 IU/mL. Performed By: #### B KVIRUS #### [facility] [address] [place] [address] Dr. Dwight Waters Log10 BKV DNA Plasma Normal [facility] Comment on above: Performed By: #### B KVIRUS #### [facility] [address] [place] [address] Dr. Dwight Waters FK506 (TACROLIMUS) WHOLE BLO ODon 03-04-2023 Tacrolimus (FK506), Blood 5.9 ng/mL Normal 2.0-20.0 [facility] Comment on above: Result Comment: Trou gh (immediately following transplant) 15.0 . Trough (steady state, 2 weeks or more after transplant): 3.0 - 8.0 . Performed by LC-MS/MS technology. Performed By: #### C MP #### [facility] [address] [place] [address] Dr. Dwight Waters ALBUMINon 03-02-2023 Albumin [Mass/Vol] 3.9 g/dL Normal 3.4-5.0 [facility] Comment on above: Performed By: #### U RTPCR #### [facility] [address] [place] [address] Dr. Dwight Waters ALKALINE PHOSPHAon ALP [Catalytic activity/Vol] 105 U/L Normal 46-116 [facility] Comment on above: Performed By: #### U RTPCR #### [facility] [address] [place] [address] Dr. Dwight Waters BILIRUBIN CONJUGATED (DIRECT )on 03-02-2023 BILI, CONJUGATED 0.2 mg/dL Normal 0.0-0.2 [facility] Comment on above: Performed By: #### U RTPCR #### [facility] [address] [place] [address] Dr. Dwight Waters BILIRUBIN TOTALon 03-02-2023 Bilirubin [Mass/Vol] 0.9 mg/dL Normal 0.2-1.0 [facility] Comment on above: Performed By: #### U RTPCR #### [facility] [address] [place] [address] Dr. Dwight Waters CBC AUTO DIFFon 03-02-2023 BASO # 0.1 103/ul Normal 0.0-0.1 [facility] Comment on above: Performed By: #### C BC #### [facility] [address] [place] [address] Dr. Dwight Waters Basophils/100 WBC (Bld) 0.9 % Normal 0.2-2.0 [facility] Comment on above: Performed By: #### C BC #### [facility] [address] [place] [address] Dr. Dwight Waters EO # 0.2 103/ul Normal 0.0-0.[address] [facility] Comment on above: Performed By: #### C BC #### [facility] [address] [place] [address] Dr. Dwight Waters Eosinophils/100 WBC (Bld) 3.5 % Normal 0.9-7.0 [facility] Comment on above: Performed By: #### C BC #### [facility] [address] [place] [address] Dr. Dwight Waters Erythrocyte distribution width (RBC) [Ratio] 12.7 % Normal 11.0-15.[address] [facility] Comment on above: Performed By: #### C BC #### [facility] [address] [place] [address] Dr. Dwight Waters Hematocrit (Bld) [Volume fraction] 48.2 % Normal 42.0-54.[address] [facility] Comment on above: Performed By: #### C BC #### [facility] [address] [place] [address] Dr. Dwight Waters Hemoglobin (Bld) [Mass/Vol] 15.9 g/dL Normal 14.0-18.[address] [facility] Comment on above: Performed By: #### C BC #### [facility] [address] [place] [address] Dr. Dwight Waters IG # 0.01 10e3/ul Normal 0.00-0.03 [facility] Comment on above: Performed By: #### C BC #### [facility] [address] [place] [address] Dr. Dwight Waters IG % 0.2 % Normal 0.0-0.5 [facility] Comment on above: Performed By: #### C BC #### [facility] [address] [place] [address] Dr. Dwight Waters LYMPH # 2.1 103/ul Normal 1.2-3.8 [facility] Comment on above: Performed By: #### C BC #### [facility] [address] [place] [address] Dr. Dwight Waters Lymphocytes/100 WBC (Bld) 37.4 % Normal 20.5-60.0 [facility] Comment on above: Performed By: #### C BC #### [facility] [address] [place] [address] Dr. Dwight Waters MANUAL DIFF REQ NO Normal [facility] Comment on above: Performed By: #### C BC #### [facility] [address] [place] [address] Dr. Dwight Waters MCH (RBC) [Entitic mass] 28.3 pg Normal 25.9-34.0 [facility] Comment on above: Performed By: #### C BC #### [facility] [address] [place] [address] Dr. Dwight Waters MCHC (RBC) [Mass/Vol] 33.0 g/dL Normal 29.9-35.2 [facility] Comment on above: Performed By: #### C BC #### [facility] [address] [place] [address] Dr. Dwight Waters MCV (RBC) [Entitic vol] 85.8 fL Normal 80.0-94.0 [facility] Comment on above: Performed By: #### C BC #### [facility] [address] [address] [address] Dwight Waters MONO # 0.6 103/ul Normal 0.3-0.[address] [facility] Comment on above: Performed By: #### C BC #### [facility] [address] [place] [address] Dr. Dwight Waters Monocytes/100 WBC (Bld) 10.2 % Normal 1.7-12.[address] [facility] Comment on above: Performed By: #### C BC #### [facility] [address] [place] [address] Dr. Dwight Waters NEUT # 2.7 103/ul Normal 1.4-6.[address] [facility] Comment on above: Performed By: #### C BC #### [facility] [address] [place] [address] Dr. Dwight Waters Neutrophils/100 WBC (Bld) 47.8 % Normal 43.0-75.[address] [facility] Comment on above: Performed By: #### C BC #### [facility] [address] [place] [address] Dr. Dwight Waters Platelet mean volume (Bld) [Entitic vol] 9.3 fL Critically low 9.5-13.[address] [facility] Comment on above: Performed By: #### C BC #### [facility] [address] [place] [address] Dr. Dwight Waters PLT 241 103/ul Normal 150-[address] [facility] Comment on above: Performed By: #### C BC #### [facility] [address] [place] [address] Dr. Dwight Waters RBC 5.62 106/ul Normal 4.70-6.[address] [facility] Comment on above: Performed By: #### C BC #### [facility] [address] [place] [address] Dr. Dwight Waters WBC 5.7 103/ul Normal 4.0-11.[address] [facility] Comment on above: Performed By: #### C BC #### [facility] [address] [place] [address] Dr. Dwight Waters GGTon 03-02-2023 Gamma glutamyl transferase [Catalytic activity/Vol] 25 U/L Normal 15-[address] [facility] Comment on above: Performed By: #### U RTPCR #### [facility] [address] [place] [address] Dr. Dwight Waters MAGNESIUMon 03-02-2023 Magnesium [Mass/Vol] 1.6 mg/dL Critically low 1.8-2.[address] [facility] Comment on above: Performed By: #### U RTPCR #### [facility] [address] [place] [address] Dr. Dwight Waters PHOSPHORUSon 03-02-2023 Phosphate [Mass/Vol] 3.6 mg/dL Normal 2.6-4.[address] [facility] Comment on above: Performed By: #### U RTPCR #### [facility] [address] [place] [address] Dr. Dwight Waters PROF CHEM 8 (BAS METB)on Anion gap [Moles/Vol] 9.4 mmol/L Normal [facility] Comment on above: Performed By: #### U RTPCR #### [facility] [address] [place] [address] Dr. Dwight Waters Calcium [Mass/Vol] 9.3 mg/dL Normal 8.5-10.[address] [facility] Comment on above: Performed By: #### U RTPCR #### [facility] [address] [place] [address] Dr. Dwight Waters Chloride [Moles/Vol] 108 mmol/L Critically high 98-[address] [facility] Comment on above: Performed By: #### U RTPCR #### [facility] [address] [place] [address] Dr. Dwight Waters CO2 [Moles/Vol] 27.2 mmol/L Normal 21.0-32.[address] [facility] Comment on above: Performed By: #### U RTPCR #### [facility] [address] [place] [address] Dr. Dwight Waters Creatinine [Mass/Vol] 1.12 mg/dL Normal 0.70-1.[address] [facility] Comment on above: Performed By: #### U RTPCR #### [facility] [address] [address] [address] Dwight Waters EGFR-AF SPANISH >60 Normal >=60 [facility] Comment on above: Performed By: #### U RTPCR #### [facility] [address] [address] [address] Dwight Waters EGFR-NON AF SPANISH >60 Normal >=60 [facility] Comment on above: Performed By: #### U RTPCR #### [facility] [address] [address] [address] Dwight Waters Glucose [Mass/Vol] 113 mg/dL Critically high 74-106 [facility] Comment on above: Performed By: #### U RTPCR #### [facility] [address] [address] [address] Dwight Waters Potassium [Moles/Vol] 3.6 mmol/L Normal 3.5-5.1 [facility] Comment on above: Performed By: #### U RTPCR #### [facility] [address] [address] [address] Dwight Waters Sodium [Moles/Vol] 141 mmol/L Normal 136-145 [facility] Comment on above: Performed By: #### U RTPCR #### [facility] [address] [address] [address] Dwight Waters Urea nitrogen [Mass/Vol] 14.0 mg/dL Normal 7.0-18.0 [facility] Comment on above: Performed By: #### U RTPCR #### [facility] [address] [address] [address] Dwight Waters Urea nitrogen/Creatinine [Mass ratio] 12.5 mg/mg Normal [facility] Comment on above: Performed By: #### U RTPCR #### [facility] [address] [address] [address] Dwight Waters SGOTon 03-02-2023 AST [Catalytic activity/Vol] 20 U/L Normal 15-37 [facility] Comment on above: Performed By: #### U RTPCR #### [facility] [address] [place] [address] Dr. Dwight Waters SGPTon 03-02-2023 ALT [Catalytic activity/Vol] 30 U/L Normal 16-63 [facility] Comment on above: Performed By: #### U RTPCR #### [facility] [address] [place] [address] Dr. Dwight Waters URINE T PROTEIN CREAT RATIOo n 03-02-2023 Protein (U) [Mass/Vol] 10.3 mg/dL Normal <=12.0 [facility] Comment on above: Performed By: #### U RTPCR #### [facility] [address] [place] [address] Dr. Dwight Waters UR PROT CREAT RAT 0.15 Normal [facility] Comment on above: Performed By: #### U RTPCR #### [facility] [address] [place] [address] Dr. Dwight Waters URINE CREAT 68.96 mg/dL Normal 20.00-300.00 [facility] Comment on above: Performed By: #### U RTPCR #### [facility] [address] [place] [address] Dr. Dwight Waters BK VIRUS PCR QUANTon 023 BKV DNA QUANT PCR PLASMA Negative Normal Negative [facility] Comment on above: Result Comment: No B K DNA detected. . The linear range of the assay is 22 - 100,000,000 IU/mL. Performed By: #### C MP #### [facility] [address] [place] [address] Dr. Dwight Waters Log10 BKV DNA Plasma Normal [facility] Comment on above: Performed By: #### C MP #### [facility] [address] [place] [address] Dr. Dwight Waters FK506 (TACROLIMUS) WHOLE BLO ODon 12-31-2022 Tacrolimus (FK506), Blood 5.6 ng/mL Normal 2.0-20.0 [facility] Comment on above: Result Comment: Trou gh (immediately following transplant) 15.0 . Trough (steady state, 2 weeks or more after transplant): 3.0 - 8.0 . Performed by LC-MS/MS technology. Performed By: #### C MP #### [facility] [address] [place] [address] Dr. Dwight Waters ALKALINE PHOSPHAon ALP [Catalytic activity/Vol] 96 U/L Normal 46-116 [facility] Comment on above: Performed By: #### C BC #### [facility] [address] [place] [address] Dr. Dwight Waters BILIRUBIN CONJUGATED (DIRECT )on 12-29-2022 BILI, CONJUGATED 0.3 mg/dL Critically high 0.0-0.2 [facility] Comment on above: Performed By: #### C BC #### [facility] [address] [place] [address] Dr. Dwight Waters BILIRUBIN TOTALon 12-29-2022 Bilirubin [Mass/Vol] 1.1 mg/dL Critically high 0.2-1.0 [facility] Comment on above: Performed By: #### C BC #### [facility] [address] [place] [address] Dr. Dwight Waters CBC AUTO DIFFon 12-29-2022 BASO # 0.1 103/ul Normal 0.0-0.1 [facility] Comment on above: Performed By: #### C MP #### [facility] [address] [place] [address] Dr. Dwight Waters Basophils/100 WBC (Bld) 0.8 % Normal 0.2-2.0 [facility] Comment on above: Performed By: #### C MP #### [facility] [address] [place] [address] Dr. Dwight Waters EO # 0.2 103/ul Normal 0.0-0.7 [facility] Comment on above: Performed By: #### C MP #### [facility] [address] [place] [address] Dr. Dwight Waters Eosinophils/100 WBC (Bld) 3.0 % Normal 0.9-7.0 [facility] Comment on above: Performed By: #### C MP #### [facility] [address] [place] [address] Dr. Dwight Waters Erythrocyte distribution width (RBC) [Ratio] 12.9 % Normal 11.0-15.0 [facility] Comment on above: Performed By: #### C MP #### [facility] [address] [place] [address] Dr. Dwight Waters Hematocrit (Bld) [Volume fraction] 46.9 % Normal 42.0-54.0 [facility] Comment on above: Performed By: #### C MP #### [facility] [address] [place] [address] Dr. Dwight Waters Hemoglobin (Bld) [Mass/Vol] 16.1 g/dL Normal 14.0-18.[address] [facility] Comment on above: Performed By: #### C MP #### [facility] [address] [place] [address] Dr. Dwight Waters IG # 0.01 10e3/ul Normal 0.00-0.03 [facility] Comment on above: Performed By: #### C MP #### [facility] [address] [place] [address] Dr. Dwight Waters IG % 0.2 % Normal 0.0-0.5 [facility] Comment on above: Performed By: #### C MP #### [facility] [address] [place] [address] Dr. Dwight Waters LYMPH # 1.8 103/ul Normal 1.2-3.[address] [facility] Comment on above: Performed By: #### C MP #### [facility] [address] [place] [address] Dr. Dwight Waters Lymphocytes/100 WBC (Bld) 27.9 % Normal 20.5-60.0 [facility] Comment on above: Performed By: #### C MP #### [facility] [address] [place] [address] Dr. Dwight Waters MANUAL DIFF REQ NO Normal [facility] Comment on above: Performed By: #### C MP #### [facility] [address] [place] [address] Dr. Dwight aWters MCH (RBC) [Entitic mass] 28.5 pg Normal 25.9-34.0 [facility] Comment on above: Performed By: #### C MP #### [facility] [address] [place] [address] Dr. Dwight Waters MCHC (RBC) [Mass/Vol] 34.3 g/dL Normal 29.9-35.2 [facility] Comment on above: Performed By: #### C MP #### [facility] [address] [place] [address] Dr. Dwight Waters MCV (RBC) [Entitic vol] 83.2 fL Normal 80.0-94.[address] [facility] Comment on above: Performed By: #### C MP #### [facility] [address] [place] [address] Dr. Dwight Waters MONO # 0.5 103/ul Normal 0.3-0.[address] [facility] Comment on above: Performed By: #### C MP #### [facility] [address] [place] [address] Dr. Dwight Waters Monocytes/100 WBC (Bld) 8.1 % Normal 1.7-12.0 [facility] Comment on above: Performed By: #### C MP #### [facility] [address] [place] [address] Dr. Dwight Waters NEUT # 3.8 103/ul Normal 1.4-6.[address] [facility] Comment on above: Performed By: #### C MP #### [facility] [address] [place] [address] Dr. Dwight Waters Neutrophils/100 WBC (Bld) 60.0 % Normal 43.0-75.[address] [facility] Comment on above: Performed By: #### C MP #### [facility] [address] [place] [address] Dr. Dwight Waters Platelet mean volume (Bld) [Entitic vol] 9.2 fL Critically low 9.5-13.5 [facility] Comment on above: Performed By: #### C MP #### [facility] [address] [place] [address] Dr. Dwgiht Waters PLT 225 103/ul Normal 150-[address] [facility] Comment on above: Performed By: #### C MP #### [facility] [address] [place] [address] Dr. Dwight Waters RBC 5.64 106/ul Normal 4.70-6.[address] [facility] Comment on above: Performed By: #### C MP #### [facility] [address] [place] [address] Dr. Dwight Waters WBC 6.3 103/ul Normal 4.0-11.[address] [facility] Comment on above: Performed By: #### C MP #### [facility] [address] [place] [address] Dr. Dwight Waters GGTon 12-29-2022 Gamma glutamyl transferase [Catalytic activity/Vol] 24 U/L Normal 15-85 [facility] Comment on above: Performed By: #### C MP #### [facility] [address] [place] [address] Dr. Dwight Waters LIPID PROFILEon 12-29-2022 CHOL-HDL RATIO NORM SEE BELOW Normal [facility] Comment on above: Result Comment: 3.3 - 4.4 LOW RISK 4.4 - 7.1 AVERAGE RISK 7.1 - 11.0 MODERATE RISK >11.0 HIGH RISK Performed By: #### U RTPCR #### [facility] [address] [place] [address] Dr. Dwight Waters Cholesterol [Mass/Vol] 87 mg/dL Normal <=[address] [facility] Comment on above: Performed By: #### U RTPCR #### [facility] [address] [place] [address] Dr. Dwight Waters Cholesterol in HDL [Mass/Vol] 44 mg/dL Normal 40-[address] [facility] Comment on above: Performed By: #### U RTPCR #### [facility] [address] [place] [address] Dr. Dwight Waters Cholesterol in LDL [Mass/Vol] 33.0 mg/dL Normal [facility] Comment on above: Performed By: #### U RTPCR #### [facility] [address] [place], [place] [id number] Dr. Dwight Waters Cholesterol.total/Ch olesterol in HDL [Mass ratio] 2.0 {ratio} Normal [facility] Comment on above: Performed By: #### U RTPCR #### [facility] [address] [place] [address] Dr. Dwight Waters HDL NORMAL > or = 60 mg/dl - LO W CARDIOVASCULAR RISK <40 mg/dl - HIGH CARDIOVASCULAR RISK Normal [facility] Comment on above: Performed By: #### U RTPCR #### [facility] [address] [place] [address] Dr. Dwight Waters LDL CALC NORMAL SEE BELOW Normal [facility] Comment on above: Result Comment: <100 mg/dl OPTIMAL 100 - 129 mg/dl NEAR OR ABOVE OPTIMAL 130 - 159 mg/dl BORDERLINE HIGH 160 - 189 mg/dl HIGH >190 mg/dl VERY HIGH Performed By: #### U RTPCR #### [facility] [address] [place] [address] Dr. Dwight Waters Triglyceride [Mass/Vol] 50 mg/dL Normal <=150 [facility] Comment on above: Performed By: #### U RTPCR #### [facility] [address] [place] [address] Dr. Dwight Waters VLDL CALC 10.0 mg/dL Normal [facility] Comment on above: Performed By: #### U RTPCR #### [facility] [address] [place] [address] Dr. Dwight Waters MAGNESIUMon 12-29-2022 Magnesium [Mass/Vol] 1.6 mg/dL Critically low 1.8-2.4 [facility] Comment on above: Performed By: #### C BC #### [facility] [address] [place] [address] Dr. Dwight Waters RENAL FUNCTION PANELon 12-29 Albumin [Mass/Vol] 3.9 g/dL Normal 3.4-5.0 [facility] Comment on above: Performed By: #### C BC #### [facility] [address] [place] [address] Dr. Dwight Waters Calcium [Mass/Vol] 9.2 mg/dL Normal 8.5-10.1 [facility] Comment on above: Performed By: #### C BC #### [facility] [address] [place] [address] Dr. Dwight Waters Chloride [Moles/Vol] 109 mmol/L Critically high 98-107 [facility] Comment on above: Performed By: #### C BC #### [facility] [address] [place] [address] Dr. Dwight Waters CO2 [Moles/Vol] 27.0 mmol/L Normal 21.0-32.0 [facility] Comment on above: Performed By: #### C BC #### [facility] [address] [place] [address] Dr. Dwight Waters Creatinine [Mass/Vol] 1.02 mg/dL Normal 0.70-1.30 [facility] Comment on above: Performed By: #### C BC #### [facility] [address] [place] [address] Dr. Dwight Waters EGFR-AF SPANISH >60 Normal >=60 [facility] Comment on above: Performed By: #### C BC #### [facility] [address] [place] [address] Dr. Dwight Waters EGFR-NON AF SPANISH >60 Normal >=60 [facility] Comment on above: Performed By: #### C BC #### [facility] [address] [place] [address] Dr. Dwight Waters Glucose [Mass/Vol] 117 mg/dL Critically high 74-106 [facility] Comment on above: Performed By: #### C BC #### [facility] [address] [place] [address] Dr. Dwight Waters Phosphate [Mass/Vol] 3.2 mg/dL Normal 2.6-4.7 [facility] Comment on above: Performed By: #### C BC #### [facility] [address] [place] [address] Dr. Dwight Waters Potassium [Moles/Vol] 4.1 mmol/L Normal 3.5-5.1 [facility] Comment on above: Performed By: #### C BC #### [facility] [address] [place] [address] Dr. Dwight Waters Sodium [Moles/Vol] 144 mmol/L Normal 136-145 [facility] Comment on above: Performed By: #### C BC #### [facility] [address] [place] [address] Dr. Dwight Waters Urea nitrogen [Mass/Vol] 13.0 mg/dL Normal 7.0-18.0 [facility] Comment on above: Performed By: #### C BC #### [facility] [address] [place] [address] Dr. Dwight Waters SGOTon 12-29-2022 AST [Catalytic activity/Vol] 21 U/L Normal 15-37 [facility] Comment on above: Performed By: #### C BC #### [facility] [address] [place] [address] Dr. Dwight Waters SGPTon 12-29-2022 ALT [Catalytic activity/Vol] 32 U/L Normal 16-63 [facility] Comment on above: Performed By: #### C BC #### [facility] [address] [place] [address] Dr. Dwight Waters URINE T PROTEIN CREAT RATIOo n 12-29-2022 Protein (U) [Mass/Vol] 14.3 mg/dL Critically high <=12.0 [facility] Comment on above: Performed By: #### U RTPCR #### [facility] [address] [place] [address] Dr. Dwight Waters UR PROT CREAT RAT 0.17 Normal [facility] Comment on above: Performed By: #### U RTPCR #### [facility] [address] [place] [address] Dr. Dwight Waters URINE CREAT 86.58 mg/dL Normal 20.00-300.00 [facility] Comment on above: Performed By: #### U RTPCR #### [facility] [address] [place] [address] Dr. Dwight Waters FK506 (TACROLIMUS) WHOLE BLO ODon 11-06-2022 Tacrolimus (FK506), Blood 4.9 ng/mL Normal 2.0-20.[address] [facility] Comment on above: Result Comment: Trou gh (immediately following transplant) 15.0 . Trough (steady state, 2 weeks or more after transplant): 3.0 - 8.0 . Performed by LC-MS/MS technology. Performed By: #### U RTPCR #### [facility] [address] [place] [address] Dr. Dwight Waters ALKALINE PHOSPHAon ALP [Catalytic activity/Vol] 86 U/L Normal 46-[address] [facility] Comment on above: Performed By: #### U RTPCR #### [facility] [address] [place] [address] Dr. Dwight Waters BILIRUBIN CONJUGATED (DIRECT )on 11-04-2022 BILI, CONJUGATED 0.2 mg/dL Normal 0.0-0.[address] [facility] Comment on above: Performed By: #### U RTPCR #### [facility] [address] [place] [address] Dr. Dwight Waters BILIRUBIN TOTALon 11-04-2022 Bilirubin [Mass/Vol] 0.8 mg/dL Normal 0.2-1.[address] [facility] Comment on above: Performed By: #### U RTPCR #### [facility] [address] [place] [address] Dr. Dwight Waters CBC AUTO DIFFon 11-04-2022 BASO # 0.1 103/ul Normal 0.0-0.[address] [facility] Comment on above: Performed By: #### U RTPCR #### [facility] [address] [place] [address] Dr. Dwight Waters Basophils/100 WBC (Bld) 0.9 % Normal 0.2-2.[address] [facility] Comment on above: Performed By: #### U RTPCR #### [facility] [address] [place] [address] Dr. Dwight Waters EO # 0.2 103/ul Normal 0.0-0.[address] [facility] Comment on above: Performed By: #### U RTPCR #### [facility] [address] [place] [address] Dr. Dwight Waters Eosinophils/100 WBC (Bld) 3.7 % Normal 0.9-7.[address] [facility] Comment on above: Performed By: #### U RTPCR #### [facility] [address] [place] [address] Dr. Dwight Waters Erythrocyte distribution width (RBC) [Ratio] 12.9 % Normal 11.0-15.0 [facility] Comment on above: Performed By: #### U RTPCR #### [facility] [address] [place] [address] Dr. Dwight Waters Hematocrit (Bld) [Volume fraction] 48.3 % Normal 42.0-54.[address] [facility] Comment on above: Performed By: #### U RTPCR #### [facility] [address] [place] [address] Dr. Dwight Waters Hemoglobin (Bld) [Mass/Vol] 15.6 g/dL Normal 14.0-18.0 [facility] Comment on above: Performed By: #### U RTPCR #### [facility] [address] [place] [address] Dr. Dwight Waters IG # 0.01 10e3/ul Normal 0.00-0.03 [facility] Comment on above: Performed By: #### U RTPCR #### [facility] [address] [place] [address] Dr. Dwight Waters IG % 0.2 % Normal 0.0-0.[address] [facility] Comment on above: Performed By: #### U RTPCR #### [facility] [address] [place] [address] Dr. Dwight Waters LYMPH # 1.9 103/ul Normal 1.2-3.[address] [facility] Comment on above: Performed By: #### U RTPCR #### [facility] [address] [place] [address] Dr. Dwight Waters Lymphocytes/100 WBC (Bld) 33.0 % Normal 20.5-60.[address] [facility] Comment on above: Performed By: #### U RTPCR #### [facility] [address] [place] [address] Dr. Dwight Waters MANUAL DIFF REQ NO Normal [facility] Comment on above: Performed By: #### U RTPCR #### [facility] [address] [place] [address] Dr. Dwight Waters MCH (RBC) [Entitic mass] 27.6 pg Normal 25.9-34.[address] [facility] Comment on above: Performed By: #### U RTPCR #### [facility] [address] [place] [address] Dr. Dwight Waters MCHC (RBC) [Mass/Vol] 32.3 g/dL Normal 29.9-35.[address] [facility] Comment on above: Performed By: #### U RTPCR #### [facility] [address] [place] [address] Dr. Dwight Waters MCV (RBC) [Entitic vol] 85.5 fL Normal 80.0-94.[address] [facility] Comment on above: Performed By: #### U RTPCR #### [facility] [address] [place] [address] Dr. Dwight Waters MONO # 0.5 103/ul Normal 0.3-0.[address] [facility] Comment on above: Performed By: #### U RTPCR #### [facility] [address] [place] [address] Dr. Dwight Waters Monocytes/100 WBC (Bld) 8.8 % Normal 1.7-12.[address] [facility] Comment on above: Performed By: #### U RTPCR #### [facility] [address] [place] [address] Dr. Dwight Waters NEUT # 3.1 103/ul Normal 1.4-6.[address] [facility] Comment on above: Performed By: #### U RTPCR #### [facility] [address] [place] [address] Dr. Dwight Waters Neutrophils/100 WBC (Bld) 53.4 % Normal 43.0-75.[address] [facility] Comment on above: Performed By: #### U RTPCR #### [facility] [address] [address] [address] Dwight Waters Platelet mean volume (Bld) [Entitic vol] 9.2 fL Critically low 9.5-13.[address] [facility] Comment on above: Performed By: #### U RTPCR #### [facility] [address] [place] [address] Dr. Dwight Waters PLT 255 103/ul Normal 150-[address] [facility] Comment on above: Performed By: #### U RTPCR #### [facility] [address] [place] [address] Dr. Dwight Waters RBC 5.65 106/ul Normal 4.70-6.[address] [facility] Comment on above: Performed By: #### U RTPCR #### [facility] [address] [place] [address] Dr. Dwight Waters WBC 5.7 103/ul Normal 4.0-11.[address] [facility] Comment on above: Performed By: #### U RTPCR #### [facility] [address] [place] [address] Dr. Dwight Waters GGTon 11-04-2022 Gamma glutamyl transferase [Catalytic activity/Vol] 22 U/L Normal 15-[address] [facility] Comment on above: Performed By: #### U RTPCR #### [facility] [address] [place] [address] Dr. Dwight Waters MAGNESIUMon 11-04-2022 Magnesium [Mass/Vol] 1.8 mg/dL Normal 1.8-2.[address] [facility] Comment on above: Performed By: #### U RTPCR #### [facility] [address] [place] [address] Dr. Dwight Waters RENAL FUNCTION PANELon 11-04 Albumin [Mass/Vol] 3.8 g/dL Normal 3.4-5.[address] [facility] Comment on above: Performed By: #### U RTPCR #### [facility] [address] [place] [address] Dr. Dwight Waters Calcium [Mass/Vol] 9.3 mg/dL Normal 8.5-10.[address] [facility] Comment on above: Performed By: #### U RTPCR #### [facility] [address] [address] [address] Dwight Waters Chloride [Moles/Vol] 107 mmol/L Normal 98-[address] [facility] Comment on above: Performed By: #### U RTPCR #### [facility] [address] [address] [address] Dwight Waters CO2 [Moles/Vol] 29.2 mmol/L Normal 21.0-32.0 [facility] Comment on above: Performed By: #### U RTPCR #### [facility] [address] [address] [address] Dwight Waters Creatinine [Mass/Vol] 1.07 mg/dL Normal 0.70-1.30 [facility] Comment on above: Performed By: #### U RTPCR #### [facility] [address] [place] [address] Dr. Dwight Waters EGFR-AF SPANISH >60 Normal >=[address] [facility] Comment on above: Performed By: #### U RTPCR #### [facility] [address] [place] [address] Dr. Dwight Waters EGFR-NON AF SPANISH >60 Normal >=60 [facility] Comment on above: Performed By: #### U RTPCR #### [facility] [address] [address] [address] Dwight Waters Glucose [Mass/Vol] 106 mg/dL Normal 74-[address] [facility] Comment on above: Performed By: #### U RTPCR #### [facility] [address] [place] [address] Dr. Dwight Waters Phosphate [Mass/Vol] 2.8 mg/dL Normal 2.6-4.[address] [facility] Comment on above: Performed By: #### U RTPCR #### [facility] [address] [place] [address] Dr. Dwight Waters Potassium [Moles/Vol] 4.1 mmol/L Normal 3.5-5.[address] [facility] Comment on above: Performed By: #### U RTPCR #### [facility] [address] [place] [address] Dr. Dwight Waters Sodium [Moles/Vol] 143 mmol/L Normal 136-[address] [facility] Comment on above: Performed By: #### U RTPCR #### [facility] [address] [place] [address] Dr. Dwight Waters Urea nitrogen [Mass/Vol] 12.0 mg/dL Normal 7.0-18.0 [facility] Comment on above: Performed By: #### U RTPCR #### [facility] [address] [place] [address] Dr. Dwight Waters SGOTon 11-04-2022 AST [Catalytic activity/Vol] 19 U/L Normal 15-[address] [facility] Comment on above: Performed By: #### U RTPCR #### [facility] [address] [place] [address] Dr. Dwight Waters SGPTon 11-04-2022 ALT [Catalytic activity/Vol] 28 U/L Normal 16-63 [facility] Comment on above: Performed By: #### U RTPCR #### [facility] [address] [place] [address] Dr. Dwight Waters URINE T PROTEIN CREAT RATIOo n 11-04-2022 Protein (U) [Mass/Vol] 10.7 mg/dL Normal <=12.0 [facility] Comment on above: Performed By: #### U RTPCR #### [facility] [address] [place] [address] Dr. Dwight Waters UR PROT CREAT RAT 0.13 Normal [address] [facility] Comment on above: Performed By: #### U RTPCR #### [facility] [address] [place] [address] Dr. Dwight Waters URINE CREAT 84.50 mg/dL Normal 20.00-300.00 [facility] Comment on above: Performed By: #### U RTPCR #### [facility] [address] [place] [address] Dr. Dwight Waters FK506 (TACROLIMUS) WHOLE BLO ODon 09-18-2022 Tacrolimus (FK506), Blood 4.6 ng/mL Normal 2.0-20.0 [facility] Comment on above: Result Comment: Trou gh (immediately following transplant) 15.0 . Trough (steady state, 2 weeks or more after transplant): 3.0 - 8.0 . Performed by LC-MS/MS technology. Performed By: #### U RTPCR #### [facility] [address] [place] [address] Dr. Dwight Waters BK VIRUS PCR QUANTon 022 BKV DNA QUANT PCR PLASMA Negative Normal Negative [facility] Comment on above: Result Comment: No B K DNA detected. . The linear range of the assay is 22 - 100,000,000 IU/mL. Performed By: #### U RTPCR #### [facility] [address] [place] [address] Dr. Dwight Waters Log10 BKV DNA Plasma Normal [facility] Comment on above: Performed By: #### U RTPCR #### [facility] [address] [place] [address] Dr. Dwight Waters ALKALINE PHOSPHAon ALP [Catalytic activity/Vol] 92 U/L Normal 46-[address] [facility] Comment on above: Performed By: #### U RTPCR #### [facility] [address] [place] [address] Dr. Dwight Waters BILIRUBIN CONJUGATED (DIRECT )on 09-15-2022 BILI, CONJUGATED 0.3 mg/dL Critically high 0.0-0.2 [facility] Comment on above: Performed By: #### U RTPCR #### [facility] [address] [place] [address] Dr. Dwight Waters BILIRUBIN TOTALon 09-15-2022 Bilirubin [Mass/Vol] 1.1 mg/dL Critically high 0.2-1.[address] [facility] Comment on above: Performed By: #### U RTPCR #### [facility] [address] [place] [address] Dr. Dwight Waters CBC AUTO DIFFon 09-15-2022 BASO # 0.1 103/ul Normal 0.0-0.1 [facility] Comment on above: Performed By: #### C BC #### [facility] [address] [place] [address] Dr. Dwight Waters Basophils/100 WBC (Bld) 0.8 % Normal 0.2-2.0 [facility] Comment on above: Performed By: #### C BC #### [facility] [address] [place] [address] Dr. Dwight Waters EO # 0.2 103/ul Normal 0.0-0.[address] [facility] Comment on above: Performed By: #### C BC #### [facility] [address] [place] [address] Dr. Dwight Waters Eosinophils/100 WBC (Bld) 3.5 % Normal 0.9-7.[address] [facility] Comment on above: Performed By: #### C BC #### [facility] [address] [place] [address] Dr. Dwight Waters Erythrocyte distribution width (RBC) [Ratio] 13.0 % Normal 11.0-15.0 [facility] Comment on above: Performed By: #### C BC #### [facility] [address] [place] [address] Dr. Dwight Waters Hematocrit (Bld) [Volume fraction] 50.0 % Normal 42.0-54.0 [facility] Comment on above: Performed By: #### C BC #### [facility] [address] [place] [address] Dr. Dwight Waters Hemoglobin (Bld) [Mass/Vol] 16.0 g/dL Normal 14.0-18.0 [facility] Comment on above: Performed By: #### C BC #### [facility] [address] [place] [address] Dr. Dwight Waters IG # 0.02 10e3/ul Normal 0.00-0.[address] [facility] Comment on above: Performed By: #### C BC #### [facility] [address] [place] [address] Dr. Dwight Waters IG % 0.3 % Normal 0.0-0.[address] [facility] Comment on above: Performed By: #### C BC #### [facility] [address] [place] [address] Dr. Dwight Waters LYMPH # 1.8 103/ul Normal 1.2-3.[address] [facility] Comment on above: Performed By: #### C BC #### [facility] [address] [place] [address] Dr. Dwight Waters Lymphocytes/100 WBC (Bld) 26.5 % Normal 20.5-60.0 [facility] Comment on above: Performed By: #### C BC #### [facility] [address] [place] [address] Dr. Dwight Waters MANUAL DIFF REQ NO Normal [facility] Comment on above: Performed By: #### C BC #### [facility] [address] [place] [address] Dr. Dwight Waters MCH (RBC) [Entitic mass] 28.1 pg Normal 25.9-34.0 [facility] Comment on above: Performed By: #### C BC #### [facility] [address] [place] [address] Dr. Dwight Waters MCHC (RBC) [Mass/Vol] 32.0 g/dL Normal 29.9-35.[address] [facility] Comment on above: Performed By: #### C BC #### [facility] [address] [place] [address] Dr. Dwight Waters MCV (RBC) [Entitic vol] 87.9 fL Normal 80.0-94.[address] [facility] Comment on above: Performed By: #### C BC #### [facility] [address] [place] [address] Dr. Dwight Waters MONO # 0.5 103/ul Normal 0.3-0.[address] [facility] Comment on above: Performed By: #### C BC #### [facility] [address] [place] [address] Dr. Dwight Waters Monocytes/100 WBC (Bld) 8.1 % Normal 1.7-12.0 [facility] Comment on above: Performed By: #### C BC #### [facility] [address] [place] [address] Dr. Dwight Waters NEUT # 4.0 103/ul Normal 1.4-6.[address] [facility] Comment on above: Performed By: #### C BC #### [facility] [address] [place] [address] Dr. Dwight Waters Neutrophils/100 WBC (Bld) 60.8 % Normal 43.0-75.0 [facility] Comment on above: Performed By: #### C BC #### [facility] [address] [place] [address] Dr. Dwight Waters Platelet mean volume (Bld) [Entitic vol] 9.4 fL Critically low 9.5-13.[address] [facility] Comment on above: Performed By: #### C BC #### [facility] [address] [place] [address] Dr. Dwight Waters PLT 265 103/ul Normal 150-[address] [facility] Comment on above: Performed By: #### C BC #### [facility] [address] [place] [address] Dr. Dwight Waters RBC 5.69 106/ul Normal 4.70-6.[address] [facility] Comment on above: Performed By: #### C BC #### [facility] [address] [place] [address] Dr. Dwight Waters WBC 6.6 103/ul Normal 4.0-11.[address] [facility] Comment on above: Performed By: #### C BC #### [facility] [address] [place] [address] Dr. Dwight Waters GGTon 09-15-2022 Gamma glutamyl transferase [Catalytic activity/Vol] 23 U/L Normal 15-[address] [facility] Comment on above: Performed By: #### U RTPCR #### [facility] [address] [place] [address] Dr. Dwight Waters MAGNESIUMon 09-15-2022 Magnesium [Mass/Vol] 1.8 mg/dL Normal 1.8-2.[address] [facility] Comment on above: Performed By: #### U RTPCR #### [facility] [address] [place] [address] Dr. Dwight Waters RENAL FUNCTION PANELon 09-15 Albumin [Mass/Vol] 4.1 g/dL Normal 3.4-5.0 [facility] Comment on above: Performed By: #### C BC #### [facility] [address] [address] [address] Dwight Waters Calcium [Mass/Vol] 9.3 mg/dL Normal 8.5-10.1 [facility] Comment on above: Performed By: #### C BC #### [facility] [address] [address] [address] Dwight Waters Chloride [Moles/Vol] 107 mmol/L Normal 98-107 [facility] Comment on above: Performed By: #### C BC #### [facility] [address] [place] [address] Dr. Dwight Waters CO2 [Moles/Vol] 25.6 mmol/L Normal 21.0-32.0 [facility] Comment on above: Performed By: #### C BC #### [facility] [address] [place] [address] Dr. Dwight Waters Creatinine [Mass/Vol] 1.01 mg/dL Normal 0.70-1.30 [facility] Comment on above: Performed By: #### C BC #### [facility] [address] [place] [address] Dr. Dwight Waters EGFR-AF SPANISH >60 Normal >=60 [facility] Comment on above: Performed By: #### C BC #### [facility] [address] [place] [address] Dr. Dwight Waters EGFR-NON AF SPANISH >60 Normal >=60 [facility] Comment on above: Performed By: #### C BC #### [facility] [address] [place] [address] Dr. Dwight Waters Glucose [Mass/Vol] 119 mg/dL Critically high 74-106 [facility] Comment on above: Performed By: #### C BC #### [facility] [address] [place] [address] Dr. Dwight Waters Phosphate [Mass/Vol] 2.8 mg/dL Normal 2.6-4.7 [facility] Comment on above: Performed By: #### C BC #### [facility] [address] [place] [address] Dr. Dwight Waters Potassium [Moles/Vol] 4.0 mmol/L Normal 3.5-5.1 [facility] Comment on above: Performed By: #### C BC #### [facility] [address] [place] [address] Dr. Dwight Waters Sodium [Moles/Vol] 141 mmol/L Normal 136-[address] [facility] Comment on above: Performed By: #### C BC #### [facility] [address] [place] [address] Dr. Dwight Waters Urea nitrogen [Mass/Vol] 15.0 mg/dL Normal 7.0-18.0 [facility] Comment on above: Performed By: #### C BC #### [facility] [address] [place] [address] Dr. Dwight Watesr SGOTon 09-15-2022 AST [Catalytic activity/Vol] 18 U/L Normal 15-[address] [facility] Comment on above: Performed By: #### U RTPCR #### [facility] [address] [place] [address] Dr. Dwight Waters SGPTon 09-15-2022 ALT [Catalytic activity/Vol] 32 U/L Normal 16-[address] [facility] Comment on above: Performed By: #### C BC #### [facility] [address] [place] [address] Dr. Dwight Waters URINE T PROTEIN CREAT RATIOo n 09-15-2022 Protein (U) [Mass/Vol] 14.1 mg/dL Critically high <=12.[address] [facility] Comment on above: Performed By: #### U RTPCR #### [facility] [address] [place] [address] Dr. Dwight Waters UR PROT CREAT RAT 0.14 Normal [facility] Comment on above: Performed By: #### U RTPCR #### [facility] [address] [place], [place] [id number] Dr. wDight Waters URINE CREAT 98.89 mg/dL Normal 20.00-300.[address] [facility] Comment on above: Performed By: #### U RTPCR #### [facility] [address] [place] [address] Dr. Dwight Waters US CAROTID ART BILon [...] 2022-08-28 13:20 Normal [address] [facility] FK506 (TACROLIMUS) WHOLE BLO ODon 08-17-2022 Tacrolimus (FK506), Blood 9.9 ng/mL Normal 2.0-20.0 [facility] Comment on above: Result Comment: Trou gh (immediately following transplant) 15.0 . Trough (steady state, 2 weeks or more after transplant): 3.0 - 8.0 . Performed by LC-MS/MS technology. Performed By: #### F [id number] #### [facility] [address] [place] [address] Dr. Dwight Waters BK VIRUS PCR QUANTon 022 BKV DNA QUANT PCR PLASMA Negative Normal Negative [facility] Comment on above: Result Comment: No B K DNA detected. . The linear range of the assay is 22 - 100,000,000 IU/mL. Performed By: #### U RTPCR #### [facility] [address] [address] [address] Dwight Waters Log10 BKV DNA Plasma Normal [facility] Comment on above: Performed By: #### U RTPCR #### [facility] [address] [place] [address] Dr. Dwight Waters ALBUMINon 08-14-2022 Albumin [Mass/Vol] 4.2 g/dL Normal 3.4-5.0 [facility] Comment on above: Performed By: #### F [id number] #### [facility] [address] [place] [address] Dr. Dwight Waters ALKALINE PHOSPHAon ALP [Catalytic activity/Vol] 92 U/L Normal 46-[address] [facility] Comment on above: Performed By: #### C BC #### [facility] [address] [place] [address] Dr. Dwight Waters BILIRUBIN CONJUGATED (DIRECT )on 08-14-2022 BILI, CONJUGATED 0.3 mg/dL Critically high 0.0-0.[address] [facility] Comment on above: Performed By: #### F [id number] #### [facility] [address] [place] [address] Dr. Dwight Waters BILIRUBIN TOTALon 08-14-2022 Bilirubin [Mass/Vol] 1.5 mg/dL Critically high 0.2-1.[address] [facility] Comment on above: Performed By: #### F [id number] #### [facility] [address] [place] [address] Dr. Dwight Waters BUNon 08-14-2022 Urea nitrogen [Mass/Vol] 11.0 mg/dL Normal 7.0-18.[address] [facility] Comment on above: Performed By: #### C BC #### [facility] [address] [place] [address] Dr. Dwight Waters CALCIUMon 08-14-2022 Calcium [Mass/Vol] 9.4 mg/dL Normal 8.5-10.[address] [facility] Comment on above: Performed By: #### F [id number] #### [facility] [address] [place] [address] Dr. Dwight Waters CBC AUTO DIFFon 08-14-2022 BASO # 0.0 103/ul Normal 0.0-0.[address] [facility] Comment on above: Performed By: #### C MP #### [facility] [address] [place] [address] Dr. Dwight Waters Basophils/100 WBC (Bld) 0.5 % Normal 0.2-2.[address] [facility] Comment on above: Performed By: #### C MP #### [facility] [address] [address] [address] Dwight Waters EO # 0.2 103/ul Normal 0.0-0.7 [facility] Comment on above: Performed By: #### C MP #### [facility] [address] [address] [address] Dwight Waters Eosinophils/100 WBC (Bld) 2.6 % Normal 0.9-7.0 [facility] Comment on above: Performed By: #### C MP #### [facility] [address] [place] [address] Dr. Dwight Waters Erythrocyte distribution width (RBC) [Ratio] 13.1 % Normal 11.0-15.0 [facility] Comment on above: Performed By: #### C MP #### [facility] [address] [place] [address] Dr. Dwight Waters Hematocrit (Bld) [Volume fraction] 47.0 % Normal 42.0-54.0 [facility] Comment on above: Performed By: #### C MP #### [facility] [address] [place] [address] Dr. Dwight Waters Hemoglobin (Bld) [Mass/Vol] 15.3 g/dL Normal 14.0-18.0 [facility] Comment on above: Performed By: #### C MP #### [facility] [address] [place] [address] Dr. Dwight Waters IG # 0.01 10e3/ul Normal 0.00-0.03 [facility] Comment on above: Performed By: #### C MP #### [facility] [address] [address] [address] Dwight Waters IG % 0.1 % Normal 0.0-0.[address] [facility] Comment on above: Performed By: #### C MP #### [facility] [address] [place] [address] Dr. Dwight Waters LYMPH # 2.3 103/ul Normal 1.2-3.8 [facility] Comment on above: Performed By: #### C MP #### [facility] [address] [place] [address] Dr. Dwight Waters Lymphocytes/100 WBC (Bld) 29.8 % Normal 20.5-60.0 [facility] Comment on above: Performed By: #### C MP #### [facility] [address] [place] [address] Dr. Dwight Waters MANUAL DIFF REQ NO Normal [facility] Comment on above: Performed By: #### C MP #### [facility] [address] [place] [address] Dr. Dwight Waters MCH (RBC) [Entitic mass] 28.2 pg Normal 25.9-34.0 [facility] Comment on above: Performed By: #### C MP #### [facility] [address] [place] [address] Dr. Dwight Waters MCHC (RBC) [Mass/Vol] 32.6 g/dL Normal 29.9-35.2 [facility] Comment on above: Performed By: #### C MP #### [facility] [address] [place] [address] Dr. Dwight Waters MCV (RBC) [Entitic vol] 86.7 fL Normal 80.0-94.0 [facility] Comment on above: Performed By: #### C MP #### [facility] [address] [place] [address] Dr. Dwight Waters MONO # 0.7 103/ul Normal 0.3-0.[address] [facility] Comment on above: Performed By: #### C MP #### [facility] [address] [place] [address] Dr. Dwight Waters Monocytes/100 WBC (Bld) 8.5 % Normal 1.7-12.[address] [facility] Comment on above: Performed By: #### C MP #### [facility] [address] [place] [address] Dr. Dwight Waters NEUT # 4.5 103/ul Normal 1.4-6.[address] [facility] Comment on above: Performed By: #### C MP #### [facility] [address] [place] [address] Dr. Dwight Waters Neutrophils/100 WBC (Bld) 58.5 % Normal 43.0-75.[address] [facility] Comment on above: Performed By: #### C MP #### [facility] [address] [place] [address] Dr. Dwight Waters Platelet mean volume (Bld) [Entitic vol] 9.7 fL Normal 9.5-13.[address] [facility] Comment on above: Performed By: #### C MP #### [facility] [address] [place] [address] Dr. Dwight Waters PLT 266 103/ul Normal 150-[address] [facility] Comment on above: Performed By: #### C MP #### [facility] [address] [place] [address] Dr. Dwight Waters RBC 5.42 106/ul Normal 4.70-6.[address] [facility] Comment on above: Performed By: #### C MP #### [facility] [address] [place] [address] Dr. Dwight Waters WBC 7.6 103/ul Normal 4.0-11.[address] [facility] Comment on above: Performed By: #### C MP #### [facility] [address] [place] [address] Dr. Dwight Waters CHLORIDEon 08-14-2022 Chloride [Moles/Vol] 104 mmol/L Normal 98-[address] [facility] Comment on above: Performed By: #### C BC #### [facility] [address] [place] [address] Dr. Dwight Waters CO2on 08-14-2022 CO2 [Moles/Vol] 27.9 mmol/L Normal 21.0-32.[address] [facility] Comment on above: Performed By: #### C BC #### [facility] [address] [place] [address] Dr. Dwight Waters CREATININEon 08-14-2022 Creatinine [Mass/Vol] 1.08 mg/dL Normal 0.70-1.[address] [facility] Comment on above: Performed By: #### C BC #### [facility] [address] [address] [address] Dwight Waters EGFR-AF SPANISH >60 Normal >=60 [facility] Comment on above: Performed By: #### C BC #### [facility] [address] [address] [address] Dwight Waters EGFR-NON AF SPANISH >60 Normal >=60 [facility] Comment on above: Performed By: #### C BC #### [facility] [address] [address] [address] Dwight Waters GGTon 08-14-2022 Gamma glutamyl transferase [Catalytic activity/Vol] 24 U/L Normal 15-85 [facility] Comment on above: Performed By: #### F [id number] #### [facility] [address] [place] [address] Dr. Dwight Waters GLUCOSE BLOODon 08-14-2022 Glucose [Mass/Vol] 111 mg/dL Critically high 74-106 [facility] Comment on above: Performed By: #### C BC #### [facility] [address] [place] [address] Dr. Dwight Waters MAGNESIUMon 08-14-2022 Magnesium [Mass/Vol] 1.4 mg/dL Critically low 1.8-2.4 [facility] Comment on above: Performed By: #### C BC #### [facility] [address] [place] [address] Dr. Dwight Waters NAon 08-14-2022 Sodium [Moles/Vol] 140 mmol/L Normal 136-145 [facility] Comment on above: Performed By: #### F [id number] #### [facility] [address] [address] [address] Dwight Waters PHOSPHORUSon 08-14-2022 Phosphate [Mass/Vol] 3.1 mg/dL Normal 2.6-4.7 [facility] Comment on above: Performed By: #### C BC #### [facility] [address] [place] [address] Dr. Dwight Waters POTASSIUMon 08-14-2022 Potassium [Moles/Vol] 3.5 mmol/L Normal 3.5-5.1 [facility] Comment on above: Performed By: #### C BC #### [facility] [address] [place] [address] Dr. Dwight Waters SGOTon 08-14-2022 AST [Catalytic activity/Vol] 17 U/L Normal 15-37 [facility] Comment on above: Performed By: #### F [id number] #### [facility] [address] [place] [address] Dr. Dwight Waters SGPTon 08-14-2022 ALT [Catalytic activity/Vol] 22 U/L Normal 16-63 [facility] Comment on above: Performed By: #### F [id number] #### [facility] [address] [place] [address] Dr. Dwight Waters URINE T PROTEIN CREAT RATIOo n 08-14-2022 Protein (U) [Mass/Vol] 10.7 mg/dL Normal <=12.0 [facility] Comment on above: Performed By: #### F [id number] #### [facility] [address] [place] [address] Dr. Dwight Waters UR PROT CREAT RAT 0.10 Normal [facility] Comment on above: Performed By: #### F [id number] #### [facility] [address] [place] [address] Dr. Dwight Waters URINE CREAT 104.28 mg/dL Normal 20.00-300.00 [facility] Comment on above: Performed By: #### F [id number] #### [facility] [address] [place] [address] Dr. Dwight Waters NEPHROSTOMY TUBE REMOVALon 0 [...] Assisting physician present for entire procedure: yes [facility] Radiology Study observation (narrative) [facility] FK506 (TACROLIMUS) WHOLE BLO ODon 07-06-2022 Tacrolimus (FK506), Blood 9.5 ng/mL Normal 2.0-20.0 [facility] Comment on above: Result Comment: Trou gh (immediately following transplant) 15.0 . Trough (steady state, 2 weeks or more after transplant): 3.0 - 8.0 . Performed by LC-MS/MS technology. Performed By: #### C MP #### [facility] [address] [place] [address] Dr. Dwight Waters ALBUMINon 07-03-2022 Albumin [Mass/Vol] 3.7 g/dL Normal 3.4-5.0 [facility] Comment on above: Performed By: #### U RTPCR #### [facility] [address] [address] [address] Dwight Waters ALKALINE PHOSPHAon ALP [Catalytic activity/Vol] 76 U/L Normal 46-116 [facility] Comment on above: Performed By: #### U RTPCR #### [facility] [address] [place] [address] Dr. Dwight Waters BILIRUBIN CONJUGATED (DIRECT )on 07-03-2022 BILI, CONJUGATED 0.3 mg/dL Critically high 0.0-0.2 [facility] Comment on above: Performed By: #### C BC #### [facility] [address] [place] [address] Dr. Dwight Waters BILIRUBIN TOTALon 07-03-2022 Bilirubin [Mass/Vol] 1.4 mg/dL Critically high 0.2-1.[address] [facility] Comment on above: Performed By: #### C BC #### [facility] [address] [place] [address] Dr. Dwight Waters BUNon 07-03-2022 Urea nitrogen [Mass/Vol] 15.0 mg/dL Normal 7.0-18.[address] [facility] Comment on above: Performed By: #### C BC #### [facility] [address] [place] [address] Dr. Dwight Waters CALCIUMon 07-03-2022 Calcium [Mass/Vol] 9.4 mg/dL Normal 8.5-10.[address] [facility] Comment on above: Performed By: #### U RTPCR #### [facility] [address] [place] [address] Dr. Dwight Waters CBC AUTO DIFFon 07-03-2022 BASO # 0.0 103/ul Normal 0.0-0.1 [facility] Comment on above: Performed By: #### U RTPCR #### [facility] [address] [place] [address] Dr. Dwight Waters Basophils/100 WBC (Bld) 0.6 % Normal 0.2-2.[address] [facility] Comment on above: Performed By: #### U RTPCR #### [facility] [address] [place] [address] Dr. Dwight Waters EO # 0.2 103/ul Normal 0.0-0.[address] [facility] Comment on above: Performed By: #### U RTPCR #### [facility] [address] [place] [address] Dr. Dwight Waters Eosinophils/100 WBC (Bld) 3.5 % Normal 0.9-7.[address] [facility] Comment on above: Performed By: #### U RTPCR #### [facility] [address] [place] [address] Dr. Dwight Waters Erythrocyte distribution width (RBC) [Ratio] 12.9 % Normal 11.0-15.0 [facility] Comment on above: Performed By: #### U RTPCR #### [facility] [address] [place] [address] Dr. Dwight Waters Hematocrit (Bld) [Volume fraction] 44.2 % Normal 42.0-54.0 [facility] Comment on above: Performed By: #### U RTPCR #### [facility] [address] [place] [address] Dr. Dwight Waters Hemoglobin (Bld) [Mass/Vol] 14.6 g/dL Normal 14.0-18.0 [facility] Comment on above: Performed By: #### U RTPCR #### [facility] [address] [place] [address] Dr. Dwight Waters IG # 0.02 10e3/ul Normal 0.00-0.03 [facility] Comment on above: Performed By: #### U RTPCR #### [facility] [address] [place] [address] Dr. Dwight Waters IG % 0.3 % Normal 0.0-0.5 [facility] Comment on above: Performed By: #### U RTPCR #### [facility] [address] [place] [address] Dr. Dwight Waters LYMPH # 2.0 103/ul Normal 1.2-3.[address] [facility] Comment on above: Performed By: #### U RTPCR #### [facility] [address] [place] [address] Dr. Dwight Waters Lymphocytes/100 WBC (Bld) 28.4 % Normal 20.5-60.0 [facility] Comment on above: Performed By: #### U RTPCR #### [facility] [address] [place] [address] Dr. Dwight Waters MANUAL DIFF REQ NO Normal [facility] Comment on above: Performed By: #### U RTPCR #### [facility] [address] [place] [address] Dr. Dwight Waters MCH (RBC) [Entitic mass] 28.6 pg Normal 25.9-34.[address] [facility] Comment on above: Performed By: #### U RTPCR #### [facility] [address] [place] [address] Dr. Dwight Waters MCHC (RBC) [Mass/Vol] 33.0 g/dL Normal 29.9-35.[address] [facility] Comment on above: Performed By: #### U RTPCR #### [facility] [address] [place] [address] Dr. Dwight Waters MCV (RBC) [Entitic vol] 86.7 fL Normal 80.0-94.0 [facility] Comment on above: Performed By: #### U RTPCR #### [facility] [address] [place] [address] Dr. Dwight Waters MONO # 0.6 103/ul Normal 0.3-0.8 [facility] Comment on above: Performed By: #### U RTPCR #### [facility] [address] [place] [address] Dr. Dwight Waters Monocytes/100 WBC (Bld) 9.1 % Normal 1.7-12.0 [facility] Comment on above: Performed By: #### U RTPCR #### [facility] [address] [place] [address] Dr. Dwight Waters NEUT # 4.0 103/ul Normal 1.4-6.[address] [facility] Comment on above: Performed By: #### U RTPCR #### [facility] [address] [place] [address] Dr. Dwight Waters Neutrophils/100 WBC (Bld) 58.1 % Normal 43.0-75.[address] [facility] Comment on above: Performed By: #### U RTPCR #### [facility] [address] [place] [address] Dr. Dwight Waters Platelet mean volume (Bld) [Entitic vol] 9.5 fL Normal 9.5-13.[address] [facility] Comment on above: Performed By: #### U RTPCR #### [facility] [address] [address] [address] Dwight Waters PLT 292 103/ul Normal 150-[address] [facility] Comment on above: Performed By: #### U RTPCR #### [facility] [address] [place] [address] Dr. Dwight Waters RBC 5.10 106/ul Normal 4.70-6.[address] [facility] Comment on above: Performed By: #### U RTPCR #### [facility] [address] [place] [address] Dr. Dwight Waters WBC 6.9 103/ul Normal 4.0-11.0 [facility] Comment on above: Performed By: #### U RTPCR #### [facility] [address] [place] [address] Dr. Dwight Waters CHLORIDEon 07-03-2022 Chloride [Moles/Vol] 108 mmol/L Critically high 98-107 [facility] Comment on above: Performed By: #### C BC #### [facility] [address] [place] [address] Dr. Dwight Waters CO2on 07-03-2022 CO2 [Moles/Vol] 25.2 mmol/L Normal 21.0-32.0 [facility] Comment on above: Performed By: #### C BC #### [facility] [address] [place] [address] Dr. Dwight Waters CREATININEon 07-03-2022 Creatinine [Mass/Vol] 1.03 mg/dL Normal 0.70-1.30 [facility] Comment on above: Performed By: #### U RTPCR #### [facility] [address] [place] [address] Dr. Dwight Waters EGFR-AF SPANISH >60 Normal >=[address] [facility] Comment on above: Performed By: #### U RTPCR #### [facility] [address] [place] [address] Dr. Dwight Waters EGFR-NON AF SPANISH >60 Normal >=60 [facility] Comment on above: Performed By: #### U RTPCR #### [facility] [address] [place] [address] Dr. Dwight Waters GGTon 07-03-2022 Gamma glutamyl transferase [Catalytic activity/Vol] 31 U/L Normal 15-85 [facility] Comment on above: Performed By: #### U RTPCR #### [facility] [address] [place] [address] Dr. Dwight Waters GLUCOSE BLOODon 07-03-2022 Glucose [Mass/Vol] 119 mg/dL Critically high 74-106 [facility] Comment on above: Performed By: #### U RTPCR #### [facility] [address] [place] [address] Dr. Dwight Waters MAGNESIUMon 07-03-2022 Magnesium [Mass/Vol] 1.4 mg/dL Critically low 1.8-2.4 [facility] Comment on above: Performed By: #### C BC #### [facility] [address] [place] [address] Dr. Dwight Waters NAon 07-03-2022 Sodium [Moles/Vol] 142 mmol/L Normal 136-145 [facility] Comment on above: Performed By: #### C MP #### [facility] [address] [place] [address] Dr. Dwight Waters PHOSPHORUSon 07-03-2022 Phosphate [Mass/Vol] 3.4 mg/dL Normal 2.6-4.7 [facility] Comment on above: Performed By: #### C BC #### [facility] [address] [place] [address] Dr. Dwight Waters POTASSIUMon 07-03-2022 Potassium [Moles/Vol] 4.1 mmol/L Normal 3.5-5.1 [facility] Comment on above: Performed By: #### C BC #### [facility] [address] [place] [address] Dr. Dwight Waters SGOTon 07-03-2022 AST [Catalytic activity/Vol] 14 U/L Critically low 15-37 [facility] Comment on above: Performed By: #### C BC #### [facility] [address] [address] [address] [facility] ALT [Catalytic activity/Vol] 25 U/L Normal 16-63 [facility] Comment on above: Performed By: #### C #### [facility] [address] [address] [address] Dwight Waters US KIDNEYSon 07-03-2022 US KIDNEYS Ultrasound kidneys, bilateral HISTORY: Transplant of kidney , pain in the right lower quadrant COMPARISON: None. TECHNIQUE: Transabdominal ultrasound imaging of both kidneys was performed. FINDINGS: The anvik kidneys are diffusely echogenic and atrophic with cortical thinning. The right kidney measures 8.3 x 3.5 x 4.07 m and the left measures 9.9 x 3.8 x 3.6 cm. No hydronephrosis of the anvik kidneys. There is a renal transplant in [...] stone involving the renal transplant. 2. Atrophic anvik kidneys. 3. Normal bladder. Electronically authenticated by: ARCELIA PIZARRO Date: 2022-07-03 17:22 [address] [facility] CT Abdomen and Pelvis WO con traston 06-27-2022 IMPRESSION: 1. Both anvik kidneys are atrophic with improvement in right-sided [...] Adrenals: Adrenal glands are unremarkable. Kidneys: Both anvik kidneys are atrophic. Interval improvement in right anvik kidney hydronephrosis since May 15, 2022. Status post right iliac fossa transplant kidney. Percutaneous nephrostomy tube in place. No hydronephrosis.. Retroperitoneal/Vasculature : No retroperitoneal adenopathy is identified. Atherosclerotic disease of the abdominal aorta and its branches. Gastrointestinal/Mesentery: The bowel loops are non-dilated without wall [...] Adrenals: Adrenal glands are unremarkable. Kidneys: Both anvik kidneys are atrophic. Interval improvement in right anvik kidney hydronephrosis since May 15, 2022. Status post right iliac fossa transplant kidney. Percutaneous nephrostomy tube in place. No hydronephrosis.. Retroperitoneal/Vasculature : No retroperitoneal adenopathy is identified. Atherosclerotic disease of the abdominal aorta and its branches. Gastrointestinal/Mesentery: The bowel loops are non-dilated without wall thickening or mass. The appendix is normal. Scattered sigmoid colon diverticulosis without evidence of acute diverticulitis. PELVIS Bladder: The bladder is decompressed, limiting evaluation. Genital: The prostate and seminal vesicles are unremarkable. Other: Small bilateral fat-containing inguinal hernias. Bony Structures: Multilevel degenerative changes of the spine. No aggressive osseous lesions. IMPRESSION IMPRESSION: 1. Both anvik kidneys are atrophic with improvement in right-sided hydronephrosis since May 15, 2022. 2. 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 No hydronephrosis. No discrete perinephric collection. 3. Partially imaged postsurgical changes related to prior liver transplant. 4. The bladder is decompressed, limiting evaluation. [facility] Radiology Study observation (narrative) [facility] CT Abdomen and Pelvis WO con trastOrdered By: Gera Lu on 06-27-2022 [facility] Work Phone: CBC AUTO DIFFon 06-18-2022 BASO # 0.0 103/ul Normal 0.0-0.1 [facility] Comment on above: Performed By: #### U RTPCR #### [facility] [address] [address] [address] Dwight Waters Basophils/100 WBC (Bld) 0.5 % Normal 0.2-2.0 [facility] Comment on above: Performed By: #### U RTPCR #### [facility] [address] [address] [address] Dwight Waters EO # 0.2 103/ul Normal 0.0-0.7 [facility] Comment on above: Performed By: #### U RTPCR #### [facility] [address] [place] [address] Dr. Dwight Waters Eosinophils/100 WBC (Bld) 2.3 % Normal 0.9-7.0 [facility] Comment on above: Performed By: #### U RTPCR #### [facility] [address] [place] [address] Dr. Dwight Waters Erythrocyte distribution width (RBC) [Ratio] 12.9 % Normal 11.0-15.0 [facility] Comment on above: Performed By: #### U RTPCR #### [facility] [address] [place] [address] Dr. Dwight Waters Hematocrit (Bld) [Volume fraction] 41.2 % Critically low 42.0-54.0 [facility] Comment on above: Performed By: #### U RTPCR #### [facility] [address] [place] [address] Dr. Dwight Waters Hemoglobin (Bld) [Mass/Vol] 13.3 g/dL Critically low 14.0-18.0 [facility] Comment on above: Performed By: #### U RTPCR #### [facility] [address] [place] [address] Dr. Dwight Waters IG # 0.04 10e3/ul Critically high 0.00-0.03 [facility] Comment on above: Performed By: #### U RTPCR #### [facility] [address] [place] [address] Dr. Dwight Waters IG % 0.5 % Normal 0.0-0.5 [facility] Comment on above: Performed By: #### U RTPCR #### [facility] [address] [place] [address] Dr. Dwight Waters LYMPH # 2.0 103/ul Normal 1.2-3.[address] [facility] Comment on above: Performed By: #### U RTPCR #### [facility] [address] [place] [address] Dr. Dwight Waters Lymphocytes/100 WBC (Bld) 22.9 % Normal 20.5-60.0 [facility] Comment on above: Performed By: #### U RTPCR #### [facility] [address] [place] [address] Dr. Dwight Waters MANUAL DIFF REQ NO Normal [facility] Comment on above: Performed By: #### U RTPCR #### [facility] [address] [place] [address] Dr. Dwight Waters MCH (RBC) [Entitic mass] 28.7 pg Normal 25.9-34.0 [facility] Comment on above: Performed By: #### U RTPCR #### [facility] [address] [place] [address] Dr. Dwight Waters MCHC (RBC) [Mass/Vol] 32.3 g/dL Normal 29.9-35.2 [facility] Comment on above: Performed By: #### U RTPCR #### [facility] [address] [place] [address] Dr. Dwight Waters MCV (RBC) [Entitic vol] 88.8 fL Normal 80.0-94.0 [facility] Comment on above: Performed By: #### U RTPCR #### [facility] [address] [place] [address] Dr. Dwight Waters MONO # 0.8 103/ul Normal 0.3-0.8 [facility] Comment on above: Performed By: #### U RTPCR #### [facility] [address] [place] [address] Dr. Dwight Waters Monocytes/100 WBC (Bld) 9.7 % Normal 1.7-12.0 [facility] Comment on above: Performed By: #### U RTPCR #### [facility] [address] [place] [address] Dr. Dwight Waters NEUT # 5.6 103/ul Normal 1.4-6.5 [facility] Comment on above: Performed By: #### U RTPCR #### [facility] [address] [address] [address] Dwight Waters Neutrophils/100 WBC (Bld) 64.1 % Normal 43.0-75.0 [facility] Comment on above: Performed By: #### U RTPCR #### [facility] [address] [address] [address] Dwight Waters Platelet mean volume (Bld) [Entitic vol] 10.0 fL Normal 9.5-13.[address] [facility] Comment on above: Performed By: #### U RTPCR #### [facility] [address] [place] [address] Dr. Dwight Waters PLT 270 103/ul Normal 150-[address] [facility] Comment on above: Performed By: #### U RTPCR #### [facility] [address] [place] [address] Dr. Dwight Waters RBC 4.64 106/ul Critically low 4.70-6.[address] [facility] Comment on above: Performed By: #### U RTPCR #### [facility] [address] [place] [address] Dr. Dwight Waters WBC 8.7 103/ul Normal 4.0-11.[address] [facility] Comment on above: Performed By: #### U RTPCR #### [facility] [address] [place] [address] Dr. Dwight Waters CULTURE URINEon 06-18-2022 CULTURE URINE Culture Observations : NO GROWTH. Normal [facility] Comment on above: Performed By: #### U RTPCR #### [facility] [address] [place] [address] Dr. Dwight Waters Covid-19 PCR (CVDTB)on 05-31 SARS-CoV-2 (COVID-19) RNA ESTELITA+probe Ql (Unsp spec) Not detected Normal NOT DETECTED [facility] Comment on above: Result Comment: When [...] for this test is supported by the [place] of Health and Human Service's declaration that [...] #### C BC #### [facility] [address] [place] [address] Dr. Dwight Waters ER URINE PROFILEon 2 Bilirubin Ql (U) Negative Normal NEGATIVE [facility] Comment on above: Performed By: #### U RTPCR #### [facility] [address] [place] [address] Dr. Dwight Waters Clarity (U) CLEAR Normal CLEAR [facility] Comment on above: Performed By: #### U RTPCR #### [facility] [address] [place] [address] Dr. Dwight Waters Color (U) YELLOW Normal YELLOW [facility] Comment on above: Performed By: #### U RTPCR #### [facility] [address] [place] [address] Dr. Dwight Waters ERUAHD A micrscopic examina tion will be performed if indicated. Normal [facility] Comment on above: Performed By: #### U RTPCR #### [facility] [address] [place] [address] Dr. Dwight Waters Glucose Ql (U) Negative Normal NEGATIVE [facility] Comment on above: Performed By: #### U RTPCR #### [facility] [address] [place] [address] Dr. Dwight Waters Hemoglobin Ql (U) LARGE Abnormal NEGATIVE [facility] Comment on above: Performed By: #### U RTPCR #### [facility] [address] [place] [address] Dr. Dwight Waters Ketones Ql (U) Negative Normal NEGATIVE [facility] Comment on above: Performed By: #### U RTPCR #### [facility] [address] [place] [address] Dr. Dwight Waters LEUKOCYTES TRACE Abnormal NEGATIVE [facility] Comment on above: Performed By: #### U RTPCR #### [facility] [address] [place] [address] Dr. Dwight Waters Nitrite Ql (U) Negative Normal NEGATIVE [facility] Comment on above: Performed By: #### U RTPCR #### [facility] [address] [place] [address] Dr. Dwight Waters pH (U) 6.0 [pH] Normal 5-9 [facility] Comment on above: Performed By: #### U RTPCR #### [facility] [address] [place] [address] Dr. Dwight Waters Protein (U) [Mass/Vol] 30 mg/dL Abnormal NEGATIVE/ TRACE [facility] Comment on above: Performed By: #### U RTPCR #### [facility] [address] [place] [address] Dr. Dwight Waters SPEC GRAVITY >=1.030 Abnormal 1.005-<=1.02 5 [facility] Comment on above: Performed By: #### U RTPCR #### [facility] [address] [place] [address] Dr. Dwight Waters UR MICRO IND INDICATED Normal [facility] Comment on above: Performed By: #### U RTPCR #### [facility] [address] [place] [address] Dr. Dwight Waters Urobilinogen Qn (U) 0.2 {Alyssa'U}/dL Normal 0.2 - 1. 0 [facility] Comment on above: Performed By: #### U RTPCR #### [facility] [address] [place] [address] Dr. Dwight Waters PROF 14(COMP METB)on 022 Albumin [Mass/Vol] 3.7 g/dL Normal 3.4-5.0 [facility] Comment on above: Performed By: #### C MP #### [facility] [address] [place] [address] Dr. Dwight Waters Albumin/Globulin [Mass ratio] 0.9 {ratio} Normal [facility] Comment on above: Performed By: #### C MP #### [facility] [address] [place] [address] Dr. Dwight Waters ALP [Catalytic activity/Vol] 80 U/L Normal 46-[address] [facility] Comment on above: Performed By: #### C MP #### [facility] [address] [place] [address] Dr. Dwight Waters ALT [Catalytic activity/Vol] 24 U/L Normal 16-63 [facility] Comment on above: Performed By: #### C MP #### [facility] [address] [place] [address] Dr. Dwight Waters Anion gap [Moles/Vol] 12.9 mmol/L Normal [facility] Comment on above: Performed By: #### C MP #### [facility] [address] [place] [address] Dr. Dwight Waters AST [Catalytic activity/Vol] 17 U/L Normal 15-37 [facility] Comment on above: Performed By: #### C MP #### [facility] [address] [place] [address] Dr. Dwight Waters Bilirubin [Mass/Vol] 0.8 mg/dL Normal 0.2-1.[address] [facility] Comment on above: Performed By: #### C MP #### [facility] [address] [place] [address] Dr. Dwight Waters Calcium [Mass/Vol] 9.4 mg/dL Normal 8.5-10.[address] [facility] Comment on above: Performed By: #### C MP #### [facility] [address] [place] [address] Dr. Dwight Waters Chloride [Moles/Vol] 106 mmol/L Normal 98-[address] [facility] Comment on above: Performed By: #### C MP #### [facility] [address] [address] [address] Dwight Waters CO2 [Moles/Vol] 25.3 mmol/L Normal 21.0-32.[address] [facility] Comment on above: Performed By: #### C MP #### [facility] [address] [address] [address] Dwight Waters Creatinine [Mass/Vol] 1.29 mg/dL Normal 0.70-1.[address] [facility] Comment on above: Performed By: #### C MP #### [facility] [address] [address] [address] Dwight Waters EGFR-AF SPANISH >60 Normal >=[address] [facility] Comment on above: Performed By: #### C MP #### [facility] [address] [place] [address] Dr. Dwight Waters EGFR-NON AF SPANISH 59 mL/min/1.73m2 Critically low >=[address] [facility] Comment on above: Performed By: #### C MP #### [facility] [address] [place] [address] Dr. Dwight Waters Globulin (S) [Mass/Vol] 4.2 g/dL Normal [facility] Comment on above: Performed By: #### C MP #### [facility] [address] [place] [address] Dr. Dwight Waters Glucose [Mass/Vol] 106 mg/dL Normal 74-[address] [facility] Comment on above: Performed By: #### C MP #### [facility] [address] [address] [address] Dwight Waters Potassium [Moles/Vol] 4.2 mmol/L Normal 3.5-5.[address] [facility] Comment on above: Performed By: #### C MP #### [facility] [address] [place] [address] Dr. Dwight Waters Protein [Mass/Vol] 7.9 g/dL Normal 6.4-8.[address] [facility] Comment on above: Performed By: #### C MP #### [facility] [address] [place] [address] Dr. Dwight Waters Sodium [Moles/Vol] 140 mmol/L Normal 136-[address] [facility] Comment on above: Performed By: #### C MP #### [facility] [address] [place] [address] Dr. Dwight Waters Urea nitrogen [Mass/Vol] 22.0 mg/dL Critically high 7.0-18.0 [facility] Comment on above: Performed By: #### C MP #### [facility] [address] [place] [address] Dr. Dwight Waters Urea nitrogen/Creatinine [Mass ratio] 17.1 mg/mg Normal [facility] Comment on above: Performed By: #### C MP #### [facility] [address] [place] [address] Dr. Dwight Waters URINE MICROSCOPIC ONLYon BACTERIA TRACE Abnormal NONE SEEN [facility] Comment on above: Performed By: #### U RTPCR #### [facility] [address] [place] [address] Dr. Dwight Waters Bacteria identified Cx Nom (U) INDICATED Normal [facility] Comment on above: Performed By: #### U RTPCR #### [facility] [address] [place] [address] Dr. Dwight Waters CAST NONE SEEN Normal NONE SEEN [facility] Comment on above: Performed By: #### U RTPCR #### [facility] [address] [place] [address] Dr. Dwight Waters Crystals LM Nom (Urine sed) NONE SEEN Normal NONE SEEN [facility] Comment on above: Performed By: #### U RTPCR #### [facility] [address] [place] [address] Dr. Dwight Waters Epithelial cells LM Ql (Urine sed) NONE SEEN Normal NONE SEEN /RARE [facility] Comment on above: Performed By: #### U RTPCR #### [facility] [address] [place] [address] Dr. Dwight Waters MUCOUS NONE SEEN Normal NONE SEEN [facility] Comment on above: Performed By: #### U RTPCR #### [facility] [address] [place] [address] Dr. Dwight Waters RBC 5-10 Abnormal 0-[address] [facility] Comment on above: Performed By: #### U RTPCR #### [facility] [address] [place] [address] Dr. Dwight Waters WBC 10-20 Abnormal NONE SEEN [facility] Comment on above: Performed By: #### U RTPCR #### [facility] [address] [place] [address] Dr. Dwight Waters ALLOSCREEN RECIPIENT (POST T X PRA)on 06-13-2022 AB SPECIFICITY CLASS COMMENT Antibody Specificity testing performed by [employer]. cPRA calculation based on identification of HLA antibody specificities at MFI >2000 and/or presence of CREG antibodies. [facility] Comment on above: Some of the reagents used for testing in the Clinical Histocompatibility Laboratory have yet to be approved by the FDA. Our certification by CLIA to perform high complexity tests allows us to use these reagents in the context of a stringent QC program, and obviates the need for FDA approval.Testing performed by the [facility] Clinical Histocompatibility Laboratory. [facility] number: [id number]. CLIA number: [id number], Director: Carlito Merchant, PhD, D([facility]). ANTIBODY SPECIFICITY INTERPRETATION Detected [facility] CLASS I SPECIFICITIES Not detected [facility] CLASS II SPECIFICITIES Not detected [facility] HLA Ab (S) 0 % 0 [facility] EXTRA MICROon 06-13-2022 [facility] URINE CULTUREOrdered By: Jah Upton on 06-13-2022 Bacteria identified Cx Nom (Unsp spec) Growth [facility] Bacteria identified Cx Nom (Unsp spec) 10,000-50,000 CFU/mL Mixed skin shimon [facility] Comment on above: Multiple bacterial m orphotypes present. Suggest appropriate recollection if clinically indicated. [facility] CBC,PLATELETSon 06-12-2022 Erythrocyte distribution width (RBC) [Ratio] 13.0 % 10.9 - 14.3 % [facility] Hematocrit (Bld) [Volume fraction] 43.2 % 39.6 - 48.8 % [facility] Hemoglobin (Bld) [Mass/Vol] 13.9 g/dL 13.4 - 16.8 g/dL [facility] Interpretation and review of laboratory results Normal [facility] MCH (RBC) [Entitic mass] 28.7 pg 26.1 - 33.3 pg [facility] MCHC (RBC) [Mass/Vol] 32.2 g/dL 31.9 - 36.5 g/dL [facility] MCV (RBC) [Entitic vol] 89.1 fL 79.0 - 94.5 fL [facility] Platelet mean volume (Bld) [Entitic vol] 10.5 fL 8.7 - 12.3 fL [facility] Platelets (Bld) [#/Vol] 269 10*3/uL 146 - 337 K/uL [facility] RBC (Bld) [#/Vol] 4.85 10*6/uL [facility] WBC (Bld) [#/Vol] 7.68 10*3/uL 3.73 - 10. 10 K/uL [facility] CHEM 7 (LYTES,BUN,CREA,GLUC) on 06-12-2022 Anion gap [Moles/Vol] 14 mmol/L 7 - 17 mmol/L [facility] Chloride [Moles/Vol] 106 mmol/L 98 - 10 8 mmol/L [facility] [facility] CO2 [Moles/Vol] 25 mmol/L 21 - 31 mmol/L [facility] Creatinine [Mass/Vol] 1.26 mg/dL 0.70 - 1.30 mg/dL [facility] GFR/1.73 sq M.predicted CKD-EPI (S/P/Bld) [Vol rate/Area] 69 >=60 mL/min/1.73m 2 [facility] Comment on above: Reported eGFR is bas ed on the CKD-EPI 2020 equation using creatinine, age, and sex. Glucose [Mass/Vol] 83 mg/dL 70 - 99 mg/dL [facility] Osmolality Calc [Osmolality] 295 [facility] Potassium [Moles/Vol] 3.8 mmol/L 3.5 - 5.0 mmol/L [facility] Sodium [Moles/Vol] 141 mmol/L 135 - 145 mmol/L [facility] Urea nitrogen [Mass/Vol] 18 mg/dL 7 - 25 mg/dL [facility] Urea nitrogen/Creatinine [Mass ratio] 14 mg/mg [facility] GGTon 06-12-2022 Gamma glutamyl transferase [Catalytic activity/Vol] 20 U/L 8 - 64 U/L [facility] HEMOGLOBIN [id number] By: Link Roche on 06-12-2022 Average glucose Estimated from glycated hemoglobin (Bld) [Mass/Vol] 126 mg/dL [facility] HbA1c (Bld) [Mass fraction] 6.0 % High 4.7 - 5.6 % [facility] Interpretation and review of laboratory results Abnormal [facility] HEPATIC FUNCTION PANELon Albumin [Mass/Vol] 4.3 g/dL 3.5 - 5.0 g/dL [facility] ALP [Catalytic activity/Vol] 78 U/L 32 - 126 U/L [facility] ALT [Catalytic activity/Vol] 12 U/L 10 - 52 U/L [facility] AST [Catalytic activity/Vol] 16 U/L 10 - 39 U/L [facility] Bilirubin [Mass/Vol] 1.0 mg/dL <1.5 [facility] Bilirubin.direct [Mass/Vol] 0.2 mg/dL <0.3 [facility] Protein [Mass/Vol] 7.5 g/dL 6.4 - 8.3 g/dL [facility] No Panel Informationon 06-12 Interpretation and review of laboratory results Normal [facility] PTH INTACTOrdered By: Marli Lizarraga on 06-12-2022 Interpretation and review of laboratory results Abnormal [facility] Parathyrin.intact [Mass/Vol] 79.7 pg/mL High 14.0 - 72.0 pg/mL [facility] TO CULTURE PERFORMABLEon 06-12-2022 Appearance (U) Clear Clear [facility] Bacteria LM Ql (Urine sed) ABSENT ABSENT [facility] Color (U) Yellow Yellow [facility] Epithelial cells.squamous LM Ql (Urine sed) 1/hpf = 1+ 1/hpf = 1+, 2-5/hpf = 2+, 0/hpf = 0+, ABSENT [facility] Glucose Test strip (U) [Mass/Vol] Negative Negative [facility] Interpretation and review of laboratory results Abnormal [facility] Ketones (U) [Mass/Vol] Trace Abnormal Negative [facility] Leukocyte esterase Test strip Ql (U) Small Abnormal Negative [facility] Nitrite Ql (U) Negative Negative [facility] pH (U) 5.5 [pH] 5.0 - 7.0 [facility] Protein (U) [Mass/Vol] 30 mg/dL Abnormal Negative [facility] RBC (U) [#/Vol] Trace Abnormal Negative [facility] RBC LM.HPF (Urine sed) [#/Area] 0-2 0 - 2 /HPF [facility] Specific gravity (U) [Rel density] 1.026 [facility] Urobilinogen (U) [Mass/Vol] 0.2 E.U./dL 0.2 E.U/dL, 1.0 E.U/dL [facility] WBC LM.HPF (Urine sed) [#/Area] 10-20 Abnormal 0 - 5 /HPF [facility] URINE PROTEIN/CREA RATIO, Baljit 06-12-2022 Creatinine (24H U) [Mass/Vol] 231.68 mg/dL [facility] Protein Unsp time (U) [Mass/Vol] 49 mg/dL [facility] Protein/Creatinine (U) [Mass ratio] 0.211 [facility] WHOLE BLO ODon 06-09-2022 Tacrolimus (FK506), Blood 9.8 ng/mL Normal 2.0-20.[address] [facility] Comment on above: Result Comment: Trou gh (immediately following transplant) 15.0 . Trough (steady state, 2 weeks or more after transplant): 3.0 - 8.0 . Performed by LC-MS/MS technology. Performed By: #### U RTPCR #### [facility] [address] [place] [address] Dr. Dwight Waters ALBUMINon 06-06-2022 Albumin [Mass/Vol] 3.8 g/dL Normal 3.4-5.0 [facility] Comment on above: Performed By: #### C MP #### [facility] [address] [place] [address] Dr. Dwight Waters ALKALINE PHOSPHAon ALP [Catalytic activity/Vol] 82 U/L Normal 46-[address] [facility] Comment on above: Performed By: #### C MP #### [facility] [address] [place] [address] Dr. Dwight Waters BILIRUBIN CONJUGATED (DIRECT )on 06-06-2022 BILI, CONJUGATED 0.2 mg/dL Normal 0.0-0.2 [facility] Comment on above: Performed By: #### C BC #### [facility] [address] [place] [address] Dr. Dwight Waters BILIRUBIN TOTALon 06-06-2022 Bilirubin [Mass/Vol] 1.0 mg/dL Normal 0.2-1.0 [facility] Comment on above: Performed By: #### C BC #### [facility] [address] [place] [address] Dr. Dwight Waters BUNon 06-06-2022 Urea nitrogen [Mass/Vol] 18.0 mg/dL Normal 7.0-18.0 [facility] Comment on above: Performed By: #### C BC #### [facility] [address] [place] [address] Dr. Dwight Waters CALCIUMon 06-06-2022 Calcium [Mass/Vol] 9.4 mg/dL Normal 8.5-10.1 [facility] Comment on above: Performed By: #### C MP #### [facility] [address] [place] [address] Dr. Dwight Waters CBC AUTO DIFFon 06-06-2022 BASO # 0.1 103/ul Normal 0.0-0.1 [facility] Comment on above: Performed By: #### U RTPCR #### [facility] [address] [place] [address] Dr. Dwight Waters Basophils/100 WBC (Bld) 0.8 % Normal 0.2-2.0 [facility] Comment on above: Performed By: #### U RTPCR #### [facility] [address] [place] [address] Dr. Dwight Waters EO # 0.3 103/ul Normal 0.0-0.7 [facility] Comment on above: Performed By: #### U RTPCR #### [facility] [address] [place] [address] Dr. Dwight Waters Eosinophils/100 WBC (Bld) 3.3 % Normal 0.9-7.0 [facility] Comment on above: Performed By: #### U RTPCR #### [facility] [address] [place] [address] Dr. Dwight Waters Erythrocyte distribution width (RBC) [Ratio] 12.4 % Normal 11.0-15.0 [facility] Comment on above: Performed By: #### U RTPCR #### [facility] [address] [place] [address] Dr. Dwight Waters Hematocrit (Bld) [Volume fraction] 45.1 % Normal 42.0-54.0 [facility] Comment on above: Performed By: #### U RTPCR #### [facility] [address] [place] [address] Dr. Dwight Waters Hemoglobin (Bld) [Mass/Vol] 14.4 g/dL Normal 14.0-18.0 [facility] Comment on above: Performed By: #### U RTPCR #### [facility] [address] [place] [address] Dr. Dwight Waters IG # 0.01 10e3/ul Normal 0.00-0.03 [facility] Comment on above: Performed By: #### U RTPCR #### [facility] [address] [place] [address] Dr. Dwight Waters IG % 0.1 % Normal 0.0-0.5 [facility] Comment on above: Performed By: #### U RTPCR #### [facility] [address] [place] [address] Dr. Dwight Waters LYMPH # 2.2 103/ul Normal 1.2-3.8 [facility] Comment on above: Performed By: #### U RTPCR #### [facility] [address] [place] [address] Dr. Dwight Waters Lymphocytes/100 WBC (Bld) 30.0 % Normal 20.5-60.0 [facility] Comment on above: Performed By: #### U RTPCR #### [facility] [address] [place] [address] Dr. Dwight Waters MANUAL DIFF REQ NO Normal [facility] Comment on above: Performed By: #### U RTPCR #### [facility] [address] [place] [address] Dr. Dwight Waters MCH (RBC) [Entitic mass] 28.2 pg Normal 25.9-34.0 [facility] Comment on above: Performed By: #### U RTPCR #### [facility] [address] [place] [address] Dr. Dwight Waters MCHC (RBC) [Mass/Vol] 31.9 g/dL Normal 29.9-35.2 [facility] Comment on above: Performed By: #### U RTPCR #### [facility] [address] [place] [address] Dr. Dwight Waters MCV (RBC) [Entitic vol] 88.3 fL Normal 80.0-94.0 [facility] Comment on above: Performed By: #### U RTPCR #### [facility] [address] [place] [address] Dr. Dwight Waters MONO # 0.6 103/ul Normal 0.3-0.8 [facility] Comment on above: Performed By: #### U RTPCR #### [facility] [address] [place] [address] Dr. Dwight Waters Monocytes/100 WBC (Bld) 8.2 % Normal 1.7-12.0 [facility] Comment on above: Performed By: #### U RTPCR #### [facility] [address] [place] [address] Dr. Dwight Waters NEUT # 4.3 103/ul Normal 1.4-6.[address] [facility] Comment on above: Performed By: #### U RTPCR #### [facility] [address] [place] [address] Dr. Dwight Waters Neutrophils/100 WBC (Bld) 57.6 % Normal 43.0-75.0 [facility] Comment on above: Performed By: #### U RTPCR #### [facility] [address] [place] [address] Dr. Dwight Waters Platelet mean volume (Bld) [Entitic vol] 9.7 fL Normal 9.5-13.[address] [facility] Comment on above: Performed By: #### U RTPCR #### [facility] [address] [place] [address] Dr. Dwight Waters PLT 297 103/ul Normal 150-[address] [facility] Comment on above: Performed By: #### U RTPCR #### [facility] [address] [place] [address] Dr. Dwight Waters RBC 5.11 106/ul Normal 4.70-6.[address] [facility] Comment on above: Performed By: #### U RTPCR #### [facility] [address] [place] [address] Dr. Dwight Waters WBC 7.5 103/ul Normal 4.0-11.[address] [facility] Comment on above: Performed By: #### U RTPCR #### [facility] [address] [place] [address] Dr. Dwight Waters CHLORIDEon 07-08-2022 Chloride [Moles/Vol] 107 mmol/L Normal 98-107 [facility] Comment on above: Performed By: #### C BC #### [facility] [address] [place] [address] Dr. Dwight Waters CO2on 06-06-2022 CO2 [Moles/Vol] 27.4 mmol/L Normal 21.0-32.0 [facility] Comment on above: Performed By: #### C BC #### [facility] [address] [place] [address] Dr. Dwight Waters CREATININEon 06-06-2022 Creatinine [Mass/Vol] 1.20 mg/dL Normal 0.70-1.30 [facility] Comment on above: Performed By: #### C BC #### [facility] [address] [place] [address] Dr. Dwight Waters EGFR-AF SPANISH >60 Normal >=60 [facility] Comment on above: Performed By: #### C BC #### [facility] [address] [place] [address] Dr. Dwight Waters EGFR-NON AF SPANISH >60 Normal >=60 [facility] Comment on above: Performed By: #### C BC #### [facility] [address] [place] [address] Dr. Dwight Waters GGTon 06-06-2022 Gamma glutamyl transferase [Catalytic activity/Vol] 29 U/L Normal 15-85 [facility] Comment on above: Performed By: #### C BC #### [facility] [address] [place] [address] Dr. Dwight Waters GLUCOSE BLOODon 06-06-2022 Glucose [Mass/Vol] 112 mg/dL Critically high 74-106 [facility] Comment on above: Performed By: #### C BC #### [facility] [address] [place] [address] Dr. Dwight Waters MAGNESIUMon 06-06-2022 Magnesium [Mass/Vol] 1.3 mg/dL Critically low 1.8-2.4 [facility] Comment on above: Performed By: #### C MP #### [facility] [address] [address] [address] Dwight Waters NAon 06-06-2022 Sodium [Moles/Vol] 141 mmol/L Normal 136-145 [facility] Comment on above: Performed By: #### C MP #### [facility] [address] [place] [address] Dr. Dwight Waters PHOSPHORUSon 06-06-2022 Phosphate [Mass/Vol] 3.1 mg/dL Normal 2.6-4.7 [facility] Comment on above: Performed By: #### C MP #### [facility] [address] [place] [address] Dr. Dwight Waters POTASSIUMon 06-06-2022 Potassium [Moles/Vol] 4.3 mmol/L Normal 3.5-5.1 [facility] Comment on above: Performed By: #### C BC #### [facility] [address] [place] [address] Dr. Dwight Albert 06-06-2022 AST [Catalytic activity/Vol] 16 U/L Normal 15-[address] [facility] Comment on above: Performed By: #### C BC #### [facility] [address] [place] [address] Dr. Dwight OLVERAPTon 06-06-2022 ALT [Catalytic activity/Vol] 50 U/L Normal 16-63 [facility] Comment on above: Performed By: #### C BC #### [facility] [address] [place] [address] Dr. Dwight Waters Bacteria identified Cx Nom ( Bld)on 05-21-2022 Bacteria identified Cx Nom (Unsp spec) NO GROWTH DAY 5 OF 5 [facility] Results may be compr omised due to volume of BACT\ALERT bottle exceeding 10mLs . The optimal blood volume is 8-10 mls per aerobic/anaerobic blood culture bottle. [facility] CALCIUMon 05-20-2022 Calcium [Mass/Vol] 9.1 mg/dL 8.6 - 10. 5 mg/dL [facility] CBC,PLATELETSon 05-20-2022 Erythrocyte distribution width (RBC) [Ratio] 12.5 % 10.9 - 14.3 % [facility] Hematocrit (Bld) [Volume fraction] 37.1 % Low 39.6 - 48.8 % [facility] Hemoglobin (Bld) [Mass/Vol] 12.3 g/dL Low 13.4 - 16.8 g/dL [facility] Interpretation and review of laboratory results Abnormal [facility] MCH (RBC) [Entitic mass] 28.9 pg 26.1 - 33.3 pg [facility] MCHC (RBC) [Mass/Vol] 33.2 g/dL 31.9 - 36.5 g/dL [facility] MCV (RBC) [Entitic vol] 87.3 fL 79.0 - 94.5 fL [facility] Platelet mean volume (Bld) [Entitic vol] 9.9 fL 8.7 - 12.3 fL [facility] Platelets (Bld) [#/Vol] 234 10*3/uL 146 - 337 K/uL [facility] RBC (Bld) [#/Vol] 4.25 10*6/uL Low [facility] WBC (Bld) [#/Vol] 6.31 10*3/uL 3.73 - 10. 10 K/uL [facility] CHEM 7 (LYTES,BUN,CREA,GLUC) on 05-20-2022 Anion gap [Moles/Vol] 15 mmol/L 7 - 17 mmol/L [facility] Chloride [Moles/Vol] 111 mmol/L High 98 - 10 8 mmol/L [facility] CO2 [Moles/Vol] 22 mmol/L 21 - 31 mmol/L [facility] Creatinine [Mass/Vol] 1.10 mg/dL 0.70 - 1.30 mg/dL [facility] GFR/1.73 sq M.predicted CKD-EPI (S/P/Bld) [Vol rate/Area] 81 >=60 mL/min/1.73m 2 [facility] Comment on above: Reported eGFR is bas ed on the CKD-EPI 2020 equation using creatinine, age, and sex. Glucose [Mass/Vol] 92 mg/dL 70 - 99 mg/dL [facility] Interpretation and review of laboratory results Abnormal [facility] Osmolality Calc [Osmolality] 302 [facility] Potassium [Moles/Vol] 4.4 mmol/L 3.5 - 5.0 mmol/L [facility] Sodium [Moles/Vol] 144 mmol/L 135 - 145 mmol/L [facility] Urea nitrogen [Mass/Vol] 18 mg/dL 7 - 25 mg/dL [facility] Urea nitrogen/Creatinine [Mass ratio] 16 mg/mg [facility] MAGNESIUMon 05-20-2022 Interpretation and review of laboratory results Abnormal [facility] Magnesium [Mass/Vol] 1.5 mg/dL Low 1.6 - 2 .6 mg/dL [facility] No Panel Informationon 05-20 Interpretation and review of laboratory results Normal [facility] PHOSPHATE, INORGANICon 05-20 Phosphate [Mass/Vol] 3.3 mg/dL 2.2 - 4 .6 mg/dL [facility] RF Unspecified body region V iews [...] projections of kidneys, ureters, and bladder. 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 [...] projections of kidneys, ureters, and bladder. 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 [...] I have reviewed and approved this report. [facility] Radiology Study observation (narrative) [facility] RF Unspecified body region V iews during surgeryOrdered By: Lizz Campos on 05-20-2022 [facility] Work Phone: CALCIUMon 05-19-2022 Calcium [Mass/Vol] 9.2 mg/dL 8.6 - 10. 5 mg/dL [facility] Calcium [Mass/Vol] 8.6 mg/dL 8.6 - 10. 5 mg/dL [facility] CBC,PLATELETSon 05-19-2022 Erythrocyte distribution width (RBC) [Ratio] 12.4 % 10.9 - 14.3 % [facility] Hematocrit (Bld) [Volume fraction] 38.0 % Low 39.6 - 48.8 % [facility] Hemoglobin (Bld) [Mass/Vol] 12.0 g/dL Low 13.4 - 16.8 g/dL [facility] Interpretation and review of laboratory results Abnormal [facility] MCH (RBC) [Entitic mass] 28.6 pg 26.1 - 33.3 pg [facility] MCHC (RBC) [Mass/Vol] 31.6 g/dL Low 31.9 - 36.5 g/dL [facility] MCV (RBC) [Entitic vol] 90.5 fL 79.0 - 94.5 fL [facility] Platelet mean volume (Bld) [Entitic vol] 9.7 fL 8.7 - 12.3 fL [facility] Platelets (Bld) [#/Vol] 199 10*3/uL 146 - 337 K/uL [facility] RBC (Bld) [#/Vol] 4.20 10*6/uL Low [facility] WBC (Bld) [#/Vol] 6.81 10*3/uL 3.73 - 10. 10 K/uL [facility] CHEM 7 (LYTES,BUN,CREA,GLUC) on 05-19-2022 Anion gap [Moles/Vol] 13 mmol/L 7 - 17 mmol/L [facility] Chloride [Moles/Vol] 105 mmol/L 98 - 10 8 mmol/L [facility] CO2 [Moles/Vol] 30 mmol/L 21 - 31 mmol/L [facility] Creatinine [Mass/Vol] 1.39 mg/dL High 0.70 - 1.30 mg/dL [facility] GFR/1.73 sq M.predicted CKD-EPI (S/P/Bld) [Vol rate/Area] 61 >=60 mL/min/1.73m 2 [facility] Comment on above: Reported eGFR is bas ed on the CKD-EPI 2020 equation using creatinine, age, and sex. Glucose [Mass/Vol] 121 mg/dL High 70 - 99 mg/dL [facility] Interpretation and review of laboratory results Abnormal [facility] Osmolality Calc [Osmolality] 303 [facility] Potassium [Moles/Vol] 3.8 mmol/L 3.5 - 5.0 mmol/L [facility] Sodium [Moles/Vol] 144 mmol/L 135 - 145 mmol/L [facility] Urea nitrogen [Mass/Vol] 18 mg/dL 7 - 25 mg/dL [facility] Urea nitrogen/Creatinine [Mass ratio] 13 mg/mg [facility] Anion gap [Moles/Vol] 15 mmol/L 7 - 17 mmol/L [facility] Chloride [Moles/Vol] 106 mmol/L 98 - 10 8 mmol/L [facility] CO2 [Moles/Vol] 24 mmol/L 21 - 31 mmol/L [facility] Creatinine [Mass/Vol] 1.46 mg/dL High 0.70 - 1.30 mg/dL [facility] GFR/1.73 sq M.predicted CKD-EPI (S/P/Bld) [Vol rate/Area] 58 Low >=60 mL/min/1.73m 2 [facility] Comment on above: Reported eGFR is bas ed on the CKD-EPI 2020 equation using creatinine, age, and sex. Glucose [Mass/Vol] 103 mg/dL High 70 - 99 mg/dL [facility] Interpretation and review of laboratory results Abnormal [facility] Osmolality Calc [Osmolality] 298 [facility] Potassium [Moles/Vol] 3.9 mmol/L 3.5 - 5.0 mmol/L [facility] Sodium [Moles/Vol] 141 mmol/L 135 - 145 mmol/L [facility] Urea nitrogen [Mass/Vol] 21 mg/dL 7 - 25 mg/dL [facility] Urea nitrogen/Creatinine [Mass ratio] 14 mg/mg [facility] MAGNESIUMon 05-19-2022 Magnesium [Mass/Vol] 2.0 mg/dL 1.6 - 2 .6 mg/dL [facility] Magnesium [Mass/Vol] 1.7 mg/dL 1.6 - 2 .6 mg/dL [facility] No Panel Informationon 05-19 Interpretation and review of laboratory results Normal [facility] Interpretation and review of laboratory results Normal [facility] PHOSPHATE, INORGANICon 05-19 Phosphate [Mass/Vol] 3.0 mg/dL 2.2 - 4 .6 mg/dL [facility] Phosphate [Mass/Vol] 2.7 mg/dL 2.2 - 4 .6 mg/dL [facility] CALCIUMon 05-18-2022 Calcium [Mass/Vol] 9.1 mg/dL 8.6 - 10. 5 mg/dL [facility] CBC,PLATELETSon 05-18-2022 Erythrocyte distribution width (RBC) [Ratio] 12.5 % 10.9 - 14.3 % [facility] Hematocrit (Bld) [Volume fraction] 37.3 % Low 39.6 - 48.8 % [facility] Hemoglobin (Bld) [Mass/Vol] 11.9 g/dL Low 13.4 - 16.8 g/dL [facility] Interpretation and review of laboratory results Abnormal [facility] MCH (RBC) [Entitic mass] 28.9 pg 26.1 - 33.3 pg [facility] MCHC (RBC) [Mass/Vol] 31.9 g/dL 31.9 - 36.5 g/dL [facility] MCV (RBC) [Entitic vol] 90.5 fL 79.0 - 94.5 fL [facility] Platelet mean volume (Bld) [Entitic vol] 10.1 fL 8.7 - 12.3 fL [facility] Platelets (Bld) [#/Vol] 189 10*3/uL 146 - 337 K/uL [facility] RBC (Bld) [#/Vol] 4.12 10*6/uL Low [facility] WBC (Bld) [#/Vol] 10.19 10*3/uL High 3.73 - 10 .10 K/uL [facility] CHEM 7 (LYTES,BUN,CREA,GLUC) on 05-18-2022 Anion gap [Moles/Vol] 13 mmol/L 7 - 17 mmol/L [facility] Chloride [Moles/Vol] 102 mmol/L 98 - 10 8 mmol/L [facility] CO2 [Moles/Vol] 26 mmol/L 21 - 31 mmol/L [facility] Creatinine [Mass/Vol] 1.91 mg/dL High 0.70 - 1.30 mg/dL [facility] GFR/1.73 sq M.predicted CKD-EPI (S/P/Bld) [Vol rate/Area] 42 Low >=60 mL/min/1.73m 2 [facility] Comment on above: Reported eGFR is bas ed on the CKD-EPI 2020 equation using creatinine, age, and sex. Glucose [Mass/Vol] 158 mg/dL High 70 - 99 mg/dL [facility] Osmolality Calc [Osmolality] 297 [facility] Potassium [Moles/Vol] 4.0 mmol/L 3.5 - 5.0 mmol/L [facility] Sodium [Moles/Vol] 137 mmol/L 135 - 145 mmol/L [facility] Urea nitrogen [Mass/Vol] 30 mg/dL High 7 - 25 mg/dL [facility] Urea nitrogen/Creatinine [Mass ratio] 16 mg/mg [facility] CHEM 7 (LYTES,BUN,CREA,GLUC) Ordered By: Tamiko Thapa on 05-18-2022 Anion gap [Moles/Vol] 13 mmol/L 7 - 17 mmol/L [facility] Chloride [Moles/Vol] 104 mmol/L 98 - 10 8 mmol/L [facility] CO2 [Moles/Vol] 26 mmol/L 21 - 31 mmol/L [facility] Creatinine [Mass/Vol] 2.96 mg/dL High 0.70 - 1.30 mg/dL [facility] GFR/1.73 sq M.predicted CKD-EPI (S/P/Bld) [Vol rate/Area] 25 Low >=60 mL/min/1.73m 2 [facility] Comment on above: Reported eGFR is bas ed on the CKD-EPI 2020 equation using creatinine, age, and sex. Glucose [Mass/Vol] 136 mg/dL High 70 - 99 mg/dL [facility] Interpretation and review of laboratory results Abnormal [facility] Osmolality Calc [Osmolality] 304 [facility] Potassium [Moles/Vol] 4.2 mmol/L 3.5 - 5.0 mmol/L [facility] Sodium [Moles/Vol] 139 mmol/L 135 - 145 mmol/L [facility] Urea nitrogen [Mass/Vol] 41 mg/dL High 7 - 25 mg/dL [facility] Urea nitrogen/Creatinine [Mass ratio] 14 mg/mg [facility] MAGNESIUMon 05-18-2022 Magnesium [Mass/Vol] 2.2 mg/dL 1.6 - 2 .6 mg/dL [facility] Interpretation and review of laboratory results Normal [facility] Magnesium [Mass/Vol] 1.7 mg/dL 1.6 - 2 .6 mg/dL [facility] No Panel Informationon 05-18 Interpretation and review of laboratory results Abnormal [facility] Interpretation and review of laboratory results Normal [facility] PHOSPHATE, INORGANICon 05-18 Phosphate [Mass/Vol] 2.0 mg/dL Low 2.2 - 4 .6 mg/dL [facility] Interpretation and review of laboratory results Normal [facility] Phosphate [Mass/Vol] 2.8 mg/dL 2.2 - 4 .6 mg/dL [facility] PT,INR,PTTon 05-18-2022 aPTT Coag (PPP) [Time] 31.0 s [facility] INR Coag (Bld) [Relative time] 1.1 {INR} [facility] Interpretation and review of laboratory results Abnormal [facility] PT Coag (PPP) [Time] 14.4 s High [facility] URINE CULTUREOrdered By: Sylvia Campos on 05-18-2022 Bacteria identified Cx Nom (Unsp spec) No Growth [facility] CBC,PLATELETSon 05-17-2022 Erythrocyte distribution width (RBC) [Ratio] 12.8 % 10.9 - 14.3 % [facility] Hematocrit (Bld) [Volume fraction] 42.8 % 39.6 - 48.8 % [facility] Hemoglobin (Bld) [Mass/Vol] 13.3 g/dL Low 13.4 - 16.8 g/dL [facility] Interpretation and review of laboratory results Abnormal [facility] MCH (RBC) [Entitic mass] 28.9 pg 26.1 - 33.3 pg [facility] MCHC (RBC) [Mass/Vol] 31.1 g/dL Low 31.9 - 36.5 g/dL [facility] MCV (RBC) [Entitic vol] 92.8 fL 79.0 - 94.5 fL [facility] Platelet mean volume (Bld) [Entitic vol] 10.3 fL 8.7 - 12.3 fL [facility] Platelets (Bld) [#/Vol] 188 10*3/uL 146 - 337 K/uL [facility] RBC (Bld) [#/Vol] 4.61 10*6/uL [facility] WBC (Bld) [#/Vol] 16.61 10*3/uL High 3.73 - 10 .10 K/uL [facility] CHEM 7 (LYTES,BUN,CREA,GLUC) Ordered By: Kaylah Mc on 05-17-2022 Anion gap [Moles/Vol] 15 mmol/L 7 - 17 mmol/L [facility] Chloride [Moles/Vol] 103 mmol/L 98 - 10 8 mmol/L [facility] CO2 [Moles/Vol] 23 mmol/L 21 - 31 mmol/L [facility] Creatinine [Mass/Vol] 5.95 mg/dL High 0.70 - 1.30 mg/dL [facility] GFR/1.73 sq M.predicted CKD-EPI (S/P/Bld) [Vol rate/Area] 11 Low >=60 mL/min/1.73m 2 [facility] Comment on above: Reported eGFR is bas ed on the CKD-EPI 2020 equation using creatinine, age, and sex. Glucose [Mass/Vol] 165 mg/dL High 70 - 99 mg/dL [facility] Interpretation and review of laboratory results Abnormal [facility] Osmolality Calc [Osmolality] 305 [facility] Potassium [Moles/Vol] 4.6 mmol/L 3.5 - 5.0 mmol/L [facility] Sodium [Moles/Vol] 136 mmol/L 135 - 145 mmol/L [facility] Urea nitrogen [Mass/Vol] 52 mg/dL High 7 - 25 mg/dL [facility] Urea nitrogen/Creatinine [Mass ratio] 9 mg/mg [facility] CHEM 7 (LYTES,BUN,CREA,GLUC) Ordered By: Kehinde Olsen on 05-17-2022 Anion gap [Moles/Vol] 24 mmol/L High 7 - 17 mmol/L [facility] Chloride [Moles/Vol] 100 mmol/L 98 - 10 8 mmol/L [facility] CO2 [Moles/Vol] 16 mmol/L Low 21 - 31 mmol/L [facility] Creatinine [Mass/Vol] 8.08 mg/dL High 0.70 - 1.30 mg/dL [facility] GFR/1.73 sq M.predicted CKD-EPI (S/P/Bld) [Vol rate/Area] 7 Low >=60 mL/min/1.73m 2 [facility] Comment on above: Reported eGFR is bas ed on the CKD-EPI 2020 equation using creatinine, age, and sex. Glucose [Mass/Vol] 164 mg/dL High 70 - 99 mg/dL [facility] Interpretation and review of laboratory results Abnormal [facility] Osmolality Calc [Osmolality] 305 [facility] Potassium [Moles/Vol] 5.0 mmol/L 3.5 - 5.0 mmol/L [facility] Sodium [Moles/Vol] 135 mmol/L 135 - 145 mmol/L [facility] Urea nitrogen [Mass/Vol] 56 mg/dL High 7 - 25 mg/dL [facility] Urea nitrogen/Creatinine [Mass ratio] 7 mg/mg [facility] LAVENDER TOP TUBEon 05-17-20 [facility] MAGNESIUMon 05-17-2022 Interpretation and review of laboratory results Normal [facility] Magnesium [Mass/Vol] 1.8 mg/dL 1.6 - 2 .6 mg/dL [facility] Interpretation and review of laboratory results Normal [facility] Magnesium [Mass/Vol] 1.6 mg/dL 1.6 - 2 .6 mg/dL [facility] No Panel Informationon 05-17 [facility] PHOSPHATE, INORGANICon 05-17 Interpretation and review of laboratory results Abnormal [facility] Phosphate [Mass/Vol] 4.9 mg/dL High 2.2 - 4 .6 mg/dL [facility] PT,INR,PTTon 05-17-2022 aPTT Coag (PPP) [Time] 33.0 s [facility] INR Coag (Bld) [Relative time] 1.3 {INR} High [facility] Interpretation and review of laboratory results Abnormal [facility] PT Coag (PPP) [Time] 15.7 s High [facility] Portable XR Chest Viewson IMPRESSION: No acute findings. OLOGY EXAM: XR CHEST KIERAN BLE, 05/17/2022 14:39 PM COMPARISON: May 15, 2022 CLINICAL INDICATIONS: hypoxia RELEVANT CLINICAL HISTORY: FINDINGS: (Adequate technique) Implanted Devices: None Thorax: Lungs are clear. No pneumothorax or effusion. Stable cardiomegaly. RADIOLOGY Raheem Sanz, - 05/17/2022 EXAM: XR CHEST PORTABLE, 05/17/2022 14:39 PM COMPARISON: May 15, 2022 CLINICAL INDICATIONS: hypoxia RELEVANT CLINICAL HISTORY: FINDINGS: (Adequate technique) Implanted Devices: None Thorax: Lungs are clear. No pneumothorax or effusion. Stable cardiomegaly. IMPRESSION IMPRESSION: No acute findings. [facility] Radiology Study observation (narrative) [facility] Portable XR Chest ViewsOrder ed By: Raheem Sanz on 05-17-2022 [facility] Work Phone: URINALYSISOrdered By: Michael patel Ma on 05-17-2022 Appearance (U) Cloudy Abnormal Clear [facility] Comment on above: Results may be inacc urate due to color interference. Clinical correlation recommended. Bacteria LM Ql (Urine sed) ABSENT ABSENT [facility] Color (U) Red Abnormal Yellow [facility] Comment on above: Results may be inacc urate due to color interference. Clinical correlation recommended. Epithelial cells.squamous LM Ql (Urine sed) ABSENT 1/hpf = 1+, 2-5/hpf = 2+, 0/hpf = 0+, ABSENT [facility] Glucose Test strip (U) [Mass/Vol] Negative Negative [facility] Comment on above: Results may be inacc urate due to color interference. Clinical correlation recommended. Interpretation and review of laboratory results Abnormal [facility] Ketones (U) [Mass/Vol] Trace Abnormal Negative [facility] Comment on above: Results may be inacc urate due to color interference. Clinical correlation recommended. Leukocyte esterase Test strip Ql (U) Large Abnormal Negative [facility] Comment on above: Results may be inacc urate due to color interference. Clinical correlation recommended. Nitrite Ql (U) Negative Negative [facility] Comment on above: Results may be inacc urate due to color interference. Clinical correlation recommended. pH (U) 5.0 [pH] 5.0 - 7.0 [facility] Comment on above: Results may be inacc urate due to color interference. Clinical correlation recommended. Protein (U) [Mass/Vol] mg/dL Abnormal Negative [facility] Comment on above: Results may be inacc urate due to color interference. Clinical correlation recommended. RBC (U) [#/Vol] Large Abnormal Negative [facility] Comment on above: Results may be inacc urate due to color interference. Clinical correlation recommended. RBC LM.HPF (Urine sed) [#/Area] /[HPF] Abnormal 0 - 2 /HPF [facility] Specific gravity (U) [Rel density] 1.016 [facility] Comment on above: Results may be inacc urate due to color interference. Clinical correlation recommended. Urobilinogen (U) [Mass/Vol] 0.2 E.U./dL 0.2 E.U/dL, 1.0 E.U/dL [facility] Comment on above: Results may be inacc urate due to color interference. Clinical correlation recommended. WBC LM.HPF (Urine sed) [#/Area] /[HPF] Abnormal 0 - 5 /HPF [facility] URINE CULTUREOrdered By: Tyler Tiwari on 05-17-2022 Bacteria identified Cx Nom (Unsp spec) No Growth [facility] CBC,PLATELETSon 05-16-2022 Erythrocyte distribution width (RBC) [Ratio] 12.9 % 10.9 - 14.3 % [facility] Hematocrit (Bld) [Volume fraction] 46.5 % 39.6 - 48.8 % [facility] Hemoglobin (Bld) [Mass/Vol] 14.7 g/dL 13.4 - 16.8 g/dL [facility] Interpretation and review of laboratory results Abnormal [facility] MCH (RBC) [Entitic mass] 28.3 pg 26.1 - 33.3 pg [facility] MCHC (RBC) [Mass/Vol] 31.6 g/dL Low 31.9 - 36.5 g/dL [facility] MCV (RBC) [Entitic vol] 89.6 fL 79.0 - 94.5 fL [facility] Platelet mean volume (Bld) [Entitic vol] 10.3 fL 8.7 - 12.3 fL [facility] Platelets (Bld) [#/Vol] 188 10*3/uL 146 - 337 K/uL [facility] RBC (Bld) [#/Vol] 5.19 10*6/uL [facility] WBC (Bld) [#/Vol] 12.55 10*3/uL High 3.73 - 10 .10 K/uL [facility] CHEM 7 (LYTES,BUN,CREA,GLUC) Ordered By: Alma Pena on 05-16-2022 Anion gap [Moles/Vol] 14 mmol/L 7 - 17 mmol/L [facility] Chloride [Moles/Vol] 103 mmol/L 98 - 10 8 mmol/L [facility] CO2 [Moles/Vol] 22 mmol/L 21 - 31 mmol/L [facility] Creatinine [Mass/Vol] 6.09 mg/dL High 0.70 - 1.30 mg/dL [facility] GFR/1.73 sq M.predicted CKD-EPI (S/P/Bld) [Vol rate/Area] 10 Low >=60 mL/min/1.73m 2 [facility] Comment on above: Reported eGFR is bas ed on the CKD-EPI 2020 equation using creatinine, age, and sex. Glucose [Mass/Vol] 134 mg/dL High 70 - 99 mg/dL [facility] Interpretation and review of laboratory results Abnormal [facility] Osmolality Calc [Osmolality] 298 [facility] Potassium [Moles/Vol] 4.9 mmol/L 3.5 - 5.0 mmol/L [facility] Sodium [Moles/Vol] 134 mmol/L Low 135 - 145 mmol/L [facility] Comment on above: Results inconsistent with previous results Urea nitrogen [Mass/Vol] 49 mg/dL High 7 - 25 mg/dL [facility] Urea nitrogen/Creatinine [Mass ratio] 8 mg/mg [facility] CHEM 7 (LYTES,BUN,CREA,GLUC) on 05-16-2022 Anion gap [Moles/Vol] 17 mmol/L 7 - 17 mmol/L [facility] Chloride [Moles/Vol] 106 mmol/L 98 - 10 8 mmol/L [facility] CO2 [Moles/Vol] 22 mmol/L 21 - 31 mmol/L [facility] Creatinine [Mass/Vol] 5.23 mg/dL High 0.70 - 1.30 mg/dL [facility] GFR/1.73 sq M.predicted CKD-EPI (S/P/Bld) [Vol rate/Area] 13 Low >=60 mL/min/1.73m 2 [facility] Comment on above: Reported eGFR is bas ed on the CKD-EPI 2020 equation using creatinine, age, and sex. Glucose [Mass/Vol] 116 mg/dL High 70 - 99 mg/dL [facility] Interpretation and review of laboratory results Abnormal [facility] Osmolality Calc [Osmolality] 305 [facility] Potassium [Moles/Vol] 4.6 mmol/L 3.5 - 5.0 mmol/L [facility] Sodium [Moles/Vol] 140 mmol/L 135 - 145 mmol/L [facility] Urea nitrogen [Mass/Vol] 42 mg/dL High 7 - 25 mg/dL [facility] Urea nitrogen/Creatinine [Mass ratio] 8 mg/mg [facility] EXTRA MICROon 05-16-2022 [facility] LT BLUE TOP TUBEon 2 [facility] LYTES (NA, K, CL) - URINE - RANDOMon 05-16-2022 Chloride (24H U) [Moles/Vol] 68 mmol/L [facility] Potassium (24H U) [Moles/Vol] 36.7 mmol/L [facility] Sodium (24H U) [Moles/Vol] 55 mmol/L [facility] The reference range has not been established for random urine specimens. The test result should be integrated into the clinical context for interpretation. [facility] MAGNESIUMon 05-16-2022 Interpretation and review of laboratory results Normal [facility] Magnesium [Mass/Vol] 1.7 mg/dL 1.6 - 2 .6 mg/dL [facility] NOVEL CORONAVIRUS PCROrdered By: Edson Candelario on 05-16-2022 SARS-CoV-2 (COVID-19) RNA ESTELITA+probe Ql (Unsp spec) Not detected NOT DETECTED [facility] Comment on above: [facility] Negative results do [...] use authorization for use by authorized laboratories. [facility] No Panel Informationon 05-16 [facility] OSMOLALITY, URINEon 05-16-20 Interpretation and review of laboratory results Normal [facility] Osmolality (U) [Osmolality] 320 mosm/kg [facility] The reference range has not been established for random urine specimens. The test result should be integrated into the clinical context for interpretation. [facility] PROCALCITONINon 05-16-2022 Interpretation and review of laboratory results Normal [facility] Procalcitonin [Mass/Vol] 0.18 ng/mL <0.50 [facility] Comment on above: Procalcitonin is an [...] trend procalcitonin in various clinical settings. [email or web address] Two common cutoffs associated with bacterial infections are as follows. Respiratory tract infections: >0.25 ng/mL Sepsis/septic shock: >0.5 ng/mL Procalcitonin should not be used alone as a diagnostic tool, however. All procalcitonin results should be interpreted in association with the patients clinical condition and all laboratory findings. [facility] PT,INR,PTTon 05-16-2022 aPTT Coag (PPP) [Time] 30.3 s [facility] INR Coag (Bld) [Relative time] 1.1 {INR} [facility] Interpretation and review of laboratory results Normal [facility] PT [facility]ag (PPP) [facility] ([facility] RNA NA A+probe Ql (Unsp spec)Ordered By: Edson Candelario on 05-16-2022 Interpretation and review of laboratory results Normal [facility] TACROLIMUS LEVEL, TROUGH (DC E DRUG LEVEL)Ordered By: Mariama Nick on 05-16-2022 Interpretation and review of laboratory results Normal [facility] Tacrolimus (Bld) [Mass/Vol] 4.1 ng/mL Bone Marrow Transplant: 4.0-12.0, Therapeutic: 5.0-15.0 [facility] Method performed is a chemiluminescent microparticle immunoasssay on the [employer] i2000. The range is based on experience at [facility] and users should be aware that target concentrations vary widely depending on concomitant therapy, time post-transplant, and desired degree of immunosuppression. [facility] URINE PROTEIN/CREA RATIO, RA NDOMon 05-16-2022 Creatinine (24H U) [Mass/Vol] 59.82 mg/dL [facility] Protein Unsp time (U) [Mass/Vol] 111 mg/dL [facility] Protein/Creatinine (U) [Mass ratio] 1.856 mg/g [facility] US for transplanted kidney l imitedon [...] the transplant kidney. OLOGY EXAM: US RENAL TRANS PLANT SCAN, 05/16/2022 15:19 PM CLINICAL INDICATIONS: Concern [...] appearing vascular flow in the transplant kidney. [facility] Radiology Study observation (narrative) [facility] US for transplanted kidney l imitedOrdered By: Rosendo Matute on 05-16-2022 [facility] Work Phone: CBC AND ELECTRONIC DIFFon Basophils (Bld) [#/Vol] 10*3/uL 0.00 - 0.09 K/uL [facility] Basophils/100 WBC (Bld) 0.2 % [facility] Differential cell count method Nom (Bld) Electronic Differential [facility] Eosinophils (Bld) [#/Vol] 10*3/uL 0.00 - 0.48 K/uL [facility] Eosinophils/100 WBC (Bld) 0.0 % [facility] Erythrocyte distribution width (RBC) [Ratio] 12.8 % 10.9 - 14.3 % [facility] Hematocrit (Bld) [Volume fraction] 46.0 % 39.6 - 48.8 % [facility] Hemoglobin (Bld) [Mass/Vol] 14.6 g/dL 13.4 - 16.8 g/dL [facility] Immature granulocytes (Bld) [#/Vol] 0.07 10*3/uL <=0.08 [facility] Immature granulocytes/100 WBC (Bld) 0.4 % [facility] Interpretation and review of laboratory results Abnormal [facility] Lymphocytes (Bld) [#/Vol] 1.49 10*3/uL 0.83 - 3.57 K/uL [facility] Lymphocytes/100 WBC (Bld) 9.4 % [facility] MCH (RBC) [Entitic mass] 28.2 pg 26.1 - 33.3 pg [facility] MCHC (RBC) [Mass/Vol] 31.7 g/dL Low 31.9 - 36.5 g/dL [facility] MCV (RBC) [Entitic vol] 89.0 fL 79.0 - 94.5 fL [facility] Monocytes (Bld) [#/Vol] 1.45 10*3/uL High 0.24 - 0.93 K/uL [facility] Monocytes/100 WBC (Bld) 9.2 % [facility] Neutrophils (Bld) [#/Vol] 12.77 10*3/uL High 1.57 - 6.19 K/uL [facility] Nucleated RBC/100 WBC (Bld) [Ratio] 0.0 % <=0.2 /100 WBC [facility] Platelet mean volume (Bld) [Entitic vol] 9.9 fL 8.7 - 12.3 fL [facility] Platelets (Bld) [#/Vol] 250 10*3/uL 146 - 337 K/uL [facility] RBC (Bld) [#/Vol] 5.17 10*6/uL [facility] Segmented neutrophils/100 WBC (Bld) 80.8 % [facility] WBC (Bld) [#/Vol] 15.81 10*3/uL High 3.73 - 10 .10 K/uL [facility] CBC AUTO DIFFon 05-15-2022 BASO # 0.0 103/ul Normal 0.0-0.1 [facility] Comment on above: Performed By: #### C BC #### [facility] [address] [place] [address] Dr. Dwight Waters Basophils/100 WBC (Bld) 0.3 % Normal 0.2-2.0 [facility] Comment on above: Performed By: #### C BC #### [facility] [address] [place] [address] Dr. Dwight Waters EO # 0.1 103/ul Normal 0.0-0.7 [facility] Comment on above: Performed By: #### C BC #### [facility] [address] [place] [address] Dr. Dwight Waters Eosinophils/100 WBC (Bld) 0.8 % Critically low 0.9-7.0 [facility] Comment on above: Performed By: #### C BC #### [facility] [address] [place] [address] Dr. Dwight Waters Erythrocyte distribution width (RBC) [Ratio] 12.7 % Normal 11.0-15.0 [facility] Comment on above: Performed By: #### C BC #### [facility] [address] [place] [address] Dr. Dwight Waters Hematocrit (Bld) [Volume fraction] 43.5 % Normal 42.0-54.0 [facility] Comment on above: Performed By: #### C BC #### [facility] [address] [place] [address] Dr. Dwight Waters Hemoglobin (Bld) [Mass/Vol] 14.4 g/dL Normal 14.0-18.0 [facility] Comment on above: Performed By: #### C BC #### [facility] [address] [place] [address] Dr. Dwight Waters IG # 0.02 10e3/ul Normal 0.00-0.03 [facility] Comment on above: Performed By: #### C BC #### [facility] [address] [place] [address] Dr. Dwight Waters IG % 0.2 % Normal 0.0-0.5 [facility] Comment on above: Performed By: #### C BC #### [facility] [address] [place] [address] Dr. Dwight Waters LYMPH # 1.5 103/ul Normal 1.2-3.[address] [facility] Comment on above: Performed By: #### C BC #### [facility] [address] [place] [address] Dr. Dwight Waters Lymphocytes/100 WBC (Bld) 12.5 % Critically low 20.5-60.0 [facility] Comment on above: Performed By: #### C BC #### [facility] [address] [place] [address] Dr. Dwight Waters MANUAL DIFF REQ NO Normal [facility] Comment on above: Performed By: #### C BC #### [facility] [address] [place] [address] Dr. Dwight Waters MCH (RBC) [Entitic mass] 28.6 pg Normal 25.9-34.0 [facility] Comment on above: Performed By: #### C BC #### [facility] [address] [place] [address] Dr. Dwight Waters MCHC (RBC) [Mass/Vol] 33.1 g/dL Normal 29.9-35.2 [facility] Comment on above: Performed By: #### C BC #### [facility] [address] [place] [place] [address] Dr. Dwight Waters MCV (RBC) [Entitic vol] 86.3 fL Normal 80.0-94.0 [facility] Comment on above: Performed By: #### C BC #### [facility] [address] [place], [place] [id number] Dr. Dwight Waters MONO # 1.0 103/ul Critically high 0.3-0.8 [facility] Comment on above: Performed By: #### C BC #### [facility] [address] [place] [address] Dr. Dwight Waters Monocytes/100 WBC (Bld) 8.2 % Normal 1.7-12.0 [facility] Comment on above: Performed By: #### C BC #### [facility] [address] [place] [address] Dr. Dwight Waters NEUT # 9.1 103/ul Critically high 1.4-6.5 [facility] Comment on above: Performed By: #### C BC #### [facility] [address] [place] [address] Dr. Dwight Waters Neutrophils/100 WBC (Bld) 78.0 % Critically high 43.0-75.0 [facility] Comment on above: Performed By: #### C BC #### [facility] [address] [place] [address] Dr. Dwight Waters Platelet mean volume (Bld) [Entitic vol] 9.8 fL Normal 9.5-13.[address] [facility] Comment on above: Performed By: #### C BC #### [facility] [address] [place] [address] Dr. Dwight Waters PLT 251 103/ul Normal 150-[address] [facility] Comment on above: Performed By: #### C BC #### [facility] [address] [place] [address] Dr. Dwight Waters RBC 5.04 106/ul Normal 4.70-6.[address] [facility] Comment on above: Performed By: #### C BC #### [facility] [address] [place] [address] Dr. Dwight Watres WBC 11.6 103/ul Critically high 4.0-11.[address] [facility] Comment on above: Performed By: #### C BC #### [facility] [address] [place] [address] Dr. Dwight Waters CHEM 6 (LYTES, BUN CREA)on 0 05-15-2022 Anion gap [Moles/Vol] 12 mmol/L 7 - 17 mmol/L [facility] Chloride [Moles/Vol] 105 mmol/L 98 - 10 8 mmol/L [facility] CO2 [Moles/Vol] 26 mmol/L 21 - 31 mmol/L [facility] Creatinine [Mass/Vol] 2.85 mg/dL High 0.70 - 1.30 mg/dL [facility] GFR/1.73 sq M.predicted CKD-EPI (S/P/Bld) [Vol rate/Area] 26 Low >=60 mL/min/1.73m 2 [facility] Comment on above: Reported eGFR is bas ed on the CKD-EPI 2020 equation using creatinine, age, and sex. Potassium [Moles/Vol] 4.6 mmol/L 3.5 - 5.0 mmol/L [facility] Sodium [Moles/Vol] 138 mmol/L 135 - 145 mmol/L [facility] Urea nitrogen [Mass/Vol] 32 mg/dL High 7 - 25 mg/dL [facility] Urea nitrogen/Creatinine [Mass ratio] 11 mg/mg [facility] CT ABD/PELVIS WO CONon 05-15 CT [...] transplanted kidney with moderate right-sided hydronephrosis. Atrophic anvik kidneys with moderate right-sided hydronephrosis. Multiple nonobstructive [...] transplanted kidney with moderate right-sided hydronephrosis. Atrophic anvik kidneys with moderate right-sided hydronephrosis. Multiple nonobstructive right renal calculi measuring up to 8 mm. FOLLOW-UP: Follow-up as clinically indicated. Electronically authenticated by: LYNDSAY JEAN Date: 2022-05-15 05:04 Normal [facility] Covid-19 PCR (CVDTB)on 04-30 SARS-CoV-2 (COVID-19) RNA ESTELITA+probe Ql (Unsp spec) Not detected Normal NOT DETECTED [facility] Comment on above: Result Comment: When [...] for this test is supported by the [place] of [employer] and Human Service's declaration that [...] #### U RTPCR #### [facility] [address] [place] [address] Dr. Dwight Waters GLUCOSEon 05-15-2022 Glucose [Mass/Vol] 141 mg/dL High 70 - 99 mg/dL [facility] GOLD TOP TUBEon 05-15-2022 [facility] HEPATIC FUNCTION PANELon Albumin [Mass/Vol] 4.3 g/dL 3.5 - 5.0 g/dL [facility] ALP [Catalytic activity/Vol] 85 U/L 32 - 126 U/L [facility] ALT [Catalytic activity/Vol] 13 U/L 10 - 52 U/L [facility] AST [Catalytic activity/Vol] 15 U/L 10 - 39 U/L [facility] Bilirubin [Mass/Vol] 0.8 mg/dL <1.5 [facility] Bilirubin.direct [Mass/Vol] 0.2 mg/dL <0.3 [facility] Interpretation and review of laboratory results Normal [facility] Protein [Mass/Vol] 7.3 g/dL 6.4 - 8.3 g/dL [facility] LIPASEon 05-15-2022 Lipase [Catalytic activity/Vol] 8 U/L Low 11 - 82 U/L [facility] No Panel Informationon 05-15 Interpretation and review of laboratory results Abnormal [facility] PROF 14(COMP METB)on 022 Albumin [Mass/Vol] 3.8 g/dL Normal 3.4-5.0 [facility] Comment on above: Performed By: #### U RTPCR #### [facility] [address] [place] [address] Dr. Dwight Waters Albumin/Globulin [Mass ratio] 1.1 {ratio} Normal [facility] Comment on above: Performed By: #### U RTPCR #### [facility] [address] [place] [address] Dr. Dwight Waters ALP [Catalytic activity/Vol] 92 U/L Normal 46-[address] [facility] Comment on above: Performed By: #### U RTPCR #### [facility] [address] [place] [address] Dr. Dwight Waters ALT [Catalytic activity/Vol] 25 U/L Normal 16-[address] [facility] Comment on above: Performed By: #### U RTPCR #### [facility] [address] [place] [address] Dr. Dwight Waters Anion gap [Moles/Vol] 14.6 mmol/L Normal [facility] Comment on above: Performed By: #### U RTPCR #### [facility] [address] [place] [address] Dr. Dwight Watesr AST [Catalytic activity/Vol] 17 U/L Normal 15-37 [facility] Comment on above: Performed By: #### U RTPCR #### [facility] [address] [place] [address] Dr. Dwight Waters Bilirubin [Mass/Vol] 0.6 mg/dL Normal 0.2-1.0 [facility] Comment on above: Performed By: #### U RTPCR #### [facility] [address] [place] [address] Dr. Dwight Waters Calcium [Mass/Vol] 9.9 mg/dL Normal 8.5-10.1 [facility] Comment on above: Performed By: #### U RTPCR #### [facility] [address] [place] [address] Dr. Dwight Waters Chloride [Moles/Vol] 106 mmol/L Normal 98-107 [facility] Comment on above: Performed By: #### U RTPCR #### [facility] [address] [place] [address] Dr. Dwight Waters CO2 [Moles/Vol] 24.2 mmol/L Normal 21.0-32.0 [facility] Comment on above: Performed By: #### U RTPCR #### [facility] [address] [place] [address] Dr. Dwight Waters Creatinine [Mass/Vol] 1.58 mg/dL Critically high 0.70-1.30 [facility] Comment on above: Performed By: #### U RTPCR #### [facility] [address] [place] [address] Dr. Dwight Waters EGFR-AF SPANISH 56 mL/min/1.73m2 Critically low >=[address] [facility] Comment on above: Performed By: #### U RTPCR #### [facility] [address] [place] [address] Dr. Dwight Waters EGFR-NON AF SPANISH 46 mL/min/1.73m2 Critically low >=60 [facility] Comment on above: Performed By: #### U RTPCR #### [facility] [address] [place] [address] Dr. Dwight Waters Globulin (S) [Mass/Vol] 3.5 g/dL Normal [facility] Comment on above: Performed By: #### U RTPCR #### [facility] [address] [place] [address] Dr. Dwight Waters Glucose [Mass/Vol] 162 mg/dL Critically high 74-106 [facility] Comment on above: Performed By: #### U RTPCR #### [facility] [address] [place] [address] Dr. Dwight Waters Potassium [Moles/Vol] 3.8 mmol/L Normal 3.5-5.1 [facility] Comment on above: Performed By: #### U RTPCR #### [facility] [address] [place] [address] Dr. Dwight Waters Protein [Mass/Vol] 7.3 g/dL Normal 6.4-8.2 [facility] Comment on above: Performed By: #### U RTPCR #### [facility] [address] [place] [address] Dr. Dwight Waters Sodium [Moles/Vol] 141 mmol/L Normal 136-145 [facility] Comment on above: Performed By: #### U RTPCR #### [facility] [address] [place] [address] Dr. Dwight Waters Urea nitrogen [Mass/Vol] 22.0 mg/dL Critically high 7.0-18.0 [facility] Comment on above: Performed By: #### U RTPCR #### [facility] [address] [place] [address] Dr. Dwight Waters Urea nitrogen/Creatinine [Mass ratio] 13.9 mg/mg Normal [facility] Comment on above: Performed By: #### U RTPCR #### [facility] [address] [place] [address] Dr. Dwight Waters Portable XR Chest Viewson IMPRESSION: No acute cardiopulmonary disease OLOGY EXAM: XR CHEST KIERAN BLE, 05/15/2022 22:52 PM COMPARISON: May 09, 2020 [...] chest. IMPRESSION IMPRESSION: No acute cardiopulmonary disease [facility] Radiology Study observation (narrative) [facility] Portable XR Chest ViewsOrder ed By: Vladislav Omer on 05-15-2022 [facility] URINE DIPSTICK; REFLEX MICRO SCOPY; REFLEX CULTURE PERFORMABLEon 05-15-2022 Appearance (U) Clear Clear [facility] Color (U) Yellow Yellow [facility] Glucose Test strip (U) [Mass/Vol] 100 mg/dL Abnormal Negative [facility] Interpretation and review of laboratory results Abnormal [facility] Ketones (U) [Mass/Vol] Negative Negative [facility] Leukocyte esterase Test strip Ql (U) Large Abnormal Negative [facility] Nitrite Ql (U) Negative Negative [facility] pH (U) 6.0 [pH] 5.0 - 7.0 [facility] Protein (U) [Mass/Vol] 100 mg/dL Abnormal Negative [facility] RBC (U) [#/Vol] Large Abnormal Negative [facility] Specific gravity (U) [Rel density] 1.010 [facility] Urobilinogen (U) [Mass/Vol] 0.2 E.U./dL 0.2 E.U/dL, 1.0 E.U/dL [facility] URINE MICROSCOPIC WITH REFLE X TO CULTUREOrdered By: Rey Bro on 05-15-2022 Bacteria LM Ql (Urine sed) ABSENT ABSENT [facility] Epithelial cells.squamous LM Ql (Urine sed) ABSENT 1/hpf = 1+, 2-5/hpf = 2+, 0/hpf = 0+, ABSENT [facility] Interpretation and review of laboratory results Abnormal [facility] RBC LM.HPF (Urine sed) [#/Area] /[HPF] Abnormal 0 - 2 /HPF [facility] WBC LM.HPF (Urine sed) [#/Area] 10-20 Abnormal 0 - 5 /HPF [facility] CT ABD/PELVIS WO CONon 05-12 CT ABD/PELVIS WO CON Begin Addendum #[address] Lund 3:25 PM EST 05/11/2022. Begin Addendum #2 IMPRESSION below should also contain the followin. 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 The anvik kidneys are progressively atrophic bilaterally compared to [...] of 06/14/2020 are no longer present. The anvik distal right ureter is decompressed beyond this [...] with surgical history for renal graft and anvik right urinary drainage, as a discrete ureteroneocystostomy is not identified, and the graft may be draining via a ureteroureterostomy. Urology consultation recommended. 3. The anvik kidneys are bilaterally atrophic, with right renal sinus calcifications consistent with nonobstructing right anvik renal calculi up to 6 mm. Normal [facility] CBC AUTO DIFFon 05-11-2022 BASO # 0.1 103/ul Normal 0.0-0.1 [facility] Comment on above: Performed By: #### U RTPCR #### [facility] [address] [place] [address] Dr. Dwight Waters Basophils/100 WBC (Bld) 0.8 % Normal 0.2-2.0 [facility] Comment on above: Performed By: #### U RTPCR #### [facility] [address] [place] [address] Dr. Dwight Waters EO # 0.2 103/ul Normal 0.0-0.[address] [facility] Comment on above: Performed By: #### U RTPCR #### [facility] [address] [place] [address] Dr. Dwight Waters Eosinophils/100 WBC (Bld) 2.5 % Normal 0.9-7.0 [facility] Comment on above: Performed By: #### U RTPCR #### [facility] [address] [place] [address] Dr. Dwight Waters Erythrocyte distribution width (RBC) [Ratio] 12.5 % Normal 11.0-15.0 [facility] Comment on above: Performed By: #### U RTPCR #### [facility] [address] [place] [address] Dr. Dwight Waters Hematocrit (Bld) [Volume fraction] 48.3 % Normal 42.0-54.0 [facility] Comment on above: Performed By: #### U RTPCR #### [facility] [address] [place] [address] Dr. Dwight Waters Hemoglobin (Bld) [Mass/Vol] 15.3 g/dL Normal 14.0-18.[address] [facility] Comment on above: Performed By: #### U RTPCR #### [facility] [address] [place] [address] Dr. Dwight Waters IG # 0.01 10e3/ul Normal 0.00-0.03 [facility] Comment on above: Performed By: #### U RTPCR #### [facility] [address] [place] [address] Dr. Dwight Waters IG % 0.2 % Normal 0.0-0.5 [facility] Comment on above: Performed By: #### U RTPCR #### [facility] [address] [place] [address] Dr. Dwight Waters LYMPH # 1.9 103/ul Normal 1.2-3.8 [facility] Comment on above: Performed By: #### U RTPCR #### [facility] [address] [place] [address] Dr. Dwight Waters Lymphocytes/100 WBC (Bld) 29.8 % Normal 20.5-60.0 [facility] Comment on above: Performed By: #### U RTPCR #### [facility] [address] [place] [address] Dr. Dwight Waters MANUAL DIFF REQ NO Normal [facility] Comment on above: Performed By: #### U RTPCR #### [facility] [address] [place] [address] Dr. Dwight Waters MCH (RBC) [Entitic mass] 28.2 pg Normal 25.9-34.0 [facility] Comment on above: Performed By: #### U RTPCR #### [facility] [address] [place] [address] Dr. Dwight Waters MCHC (RBC) [Mass/Vol] 31.7 g/dL Normal 29.9-35.2 [facility] Comment on above: Performed By: #### U RTPCR #### [facility] [address] [place] [address] Dr. Dwight Waters MCV (RBC) [Entitic vol] 89.1 fL Normal 80.0-94.0 [facility] Comment on above: Performed By: #### U RTPCR #### [facility] [address] [place] [address] Dr. Dwight Waters MONO # 0.6 103/ul Normal 0.3-0.8 [facility] Comment on above: Performed By: #### U RTPCR #### [facility] [address] [place] [address] Dr. Dwight Waters Monocytes/100 WBC (Bld) 9.0 % Normal 1.7-12.[address] [facility] Comment on above: Performed By: #### U RTPCR #### [facility] [address] [place] [address] Dr. Dwight Waters NEUT # 3.6 103/ul Normal 1.4-6.[address] [facility] Comment on above: Performed By: #### U RTPCR #### [facility] [address] [place] [address] Dr. Dwight Waters Neutrophils/100 WBC (Bld) 57.7 % Normal 43.0-75.[address] [facility] Comment on above: Performed By: #### U RTPCR #### [facility] [address] [place] [address] Dr. Dwight Waters Platelet mean volume (Bld) [Entitic vol] 9.9 fL Normal 9.5-13.[address] [facility] Comment on above: Performed By: #### U RTPCR #### [facility] [address] [place] [address] Dr. Dwight Waters PLT 249 103/ul Normal 150-[address] [facility] Comment on above: Performed By: #### U RTPCR #### [facility] [address] [place] [address] Dr. Dwight Waters RBC 5.42 106/ul Normal 4.70-6.[address] [facility] Comment on above: Performed By: #### U RTPCR #### [facility] [address] [place] [address] Dr. Dwight Waters WBC 6.3 103/ul Normal 4.0-11.[address] [facility] Comment on above: Performed By: #### U RTPCR #### [facility] [address] [place] [address] Dr. Dwight Waters ER URINE PROFILEon 2 Bilirubin Ql (U) Unable to perform te sting due to color interference. Abnormal NEGATIVE [facility] Comment on above: Performed By: #### U RTPCR #### [facility] [address] [place] [address] Dr. Dwight Waters Clarity (U) TURBID Abnormal CLEAR [facility] Comment on above: Performed By: #### U RTPCR #### [facility] [address] [place] [address] Dr. Dwight Waters Color (U) RED Abnormal YELLOW [facility] Comment on above: Performed By: #### U RTPCR #### [facility] [address] [place] [address] Dr. Dwight Waters ERUAHD A micrscopic examina tion will be performed if indicated. Normal [facility] Comment on above: Performed By: #### U RTPCR #### [facility] [address] [place] [address] Dr. Dwight Waters Glucose Ql (U) Unable to perform te sting due to color interference. Abnormal NEGATIVE [facility] Comment on above: Performed By: #### U RTPCR #### [facility] [address] [place] [address] Dr. Dwight Waters Hemoglobin Ql (U) Unable to perform te sting due to color interference. Abnormal NEGATIVE [facility] Comment on above: Performed By: #### U RTPCR #### [facility] [address] [place] [address] Dr. Dwight Waters Ketones Ql (U) Unable to perform te sting due to color interference. Abnormal NEGATIVE [facility] Comment on above: Performed By: #### U RTPCR #### [facility] [address] [place] [address] Dr. Dwight Waters LEUKOCYTES Unable to perform te sting due to color interference. Abnormal NEGATIVE [facility] Comment on above: Performed By: #### U RTPCR #### [facility] [address] [place] [address] Dr. Dwight Waters Nitrite Ql (U) Unable to perform te sting due to color interference. Abnormal NEGATIVE [facility] Comment on above: Performed By: #### U RTPCR #### [facility] [address] [place] [address] Dr. Dwight Waters pH (U) 6.5 [pH] Normal 5-[address] [facility] Comment on above: Performed By: #### U RTPCR #### [facility] [address] [place] [address] Dr. Dwight Waters SPEC GRAVITY 1.020 Normal 1.005-<=1.02 [address] [facility] Comment on above: Performed By: #### U RTPCR #### [facility] [address] [place] [address] Dr. Dwight Waters UA PROTEIN Unable to perform te sting due to color interference. Normal NEGATIVE/ TRACE [facility] Comment on above: Performed By: #### U RTPCR #### [facility] [address] [place] [address] Dr. Dwight Waters UR MICRO IND INDICATED Normal [facility] Comment on above: Performed By: #### U RTPCR #### [facility] [address] [place] [address] Dr. Dwight Waters UROBILINOGEN Unable to perform te sting due to color interference. Normal 0.2 - 1.[address] [facility] Comment on above: Performed By: #### U RTPCR #### [facility] [address] [place] [address] Dr. Dwight Waters PROF 14(COMP METB)on 022 Albumin [Mass/Vol] 3.8 g/dL Normal 3.4-5.[address] [facility] Comment on above: Performed By: #### C MP #### [facility] [address] [place] [address] Dr. Dwight Waters Albumin/Globulin [Mass ratio] 1.1 {ratio} Normal [facility] Comment on above: Performed By: #### C MP #### [facility] [address] [place] [address] Dr. Dwight Waters ALP [Catalytic activity/Vol] 106 U/L Normal 46-[address] [facility] Comment on above: Performed By: #### C MP #### [facility] [address] [place] [address] Dr. Dwight Waters ALT [Catalytic activity/Vol] 30 U/L Normal 16-[address] [facility] Comment on above: Performed By: #### C MP #### [facility] [address] [place] [address] Dr. Dwight Waters Anion gap [Moles/Vol] 11.7 mmol/L Normal [facility] Comment on above: Performed By: #### C MP #### [facility] [address] [place] [address] Dr. Dwight Waters AST [Catalytic activity/Vol] 16 U/L Normal 15-37 [facility] Comment on above: Performed By: #### C MP #### [facility] [address] [place] [address] Dr. Dwight Waters Bilirubin [Mass/Vol] 0.6 mg/dL Normal 0.2-1.0 [facility] Comment on above: Performed By: #### C MP #### [facility] [address] [place] [address] Dr. Dwight Waters Calcium [Mass/Vol] 9.1 mg/dL Normal 8.5-10.1 [facility] Comment on above: Performed By: #### C MP #### [facility] [address] [place] [address] Dr. Dwight Waters CO2 [Moles/Vol] 27.4 mmol/L Normal 21.0-32.0 [facility] Comment on above: Performed By: #### C MP #### [facility] [address] [place] [address] Dr. Dwight Waters Creatinine [Mass/Vol] 1.18 mg/dL Normal 0.70-1.30 [facility] Comment on above: Performed By: #### C MP #### [facility] [address] [place] [address] Dr. Dwight Waters EGFR-AF SPANISH >60 Normal >=[address] [facility] Comment on above: Performed By: #### C MP #### [facility] [address] [place] [address] Dr. Dwight Waters EGFR-NON AF SPANISH >60 Normal >=60 [facility] Comment on above: Performed By: #### C MP #### [facility] [address] [place] [address] Dr. Dwight Waters Globulin (S) [Mass/Vol] 3.6 g/dL Normal [facility] Comment on above: Performed By: #### C MP #### [facility] [address] [address] [address] Dwight Waters Glucose [Mass/Vol] 192 mg/dL Critically high 74-106 [facility] Comment on above: Performed By: #### C MP #### [facility] [address] [address] [address] Dwight Waters Potassium [Moles/Vol] 4.1 mmol/L Normal 3.5-5.1 [facility] Comment on above: Performed By: #### C MP #### [facility] [address] [address] [address] Dwight Waters Protein [Mass/Vol] 7.4 g/dL Normal 6.4-8.2 [facility] Comment on above: Performed By: #### C MP #### [facility] [address] [address] [address] Dwight Waters Sodium [Moles/Vol] 142 mmol/L Normal 136-145 [facility] Comment on above: Performed By: #### C MP #### [facility] [address] [address] [address] Dwight Waters Urea nitrogen [Mass/Vol] 17.0 mg/dL Normal 7.0-18.0 [facility] Comment on above: Performed By: #### C MP #### [facility] [address] [address] [address] Dwight Waters Urea nitrogen/Creatinine [Mass ratio] 14.4 mg/mg Normal [facility] Comment on above: Performed By: #### C MP #### [facility] [address] [address] [address] Dwight Waters URINE MICROSCOPIC ONLYon BACTERIA NONE SEEN Normal NONE SEEN [facility] Comment on above: Performed By: #### U RTPCR #### [facility] [address] [address] [address] Dwight Waters Bacteria identified Cx Nom (U) NOT INDICATED Normal [facility] Comment on above: Performed By: #### U RTPCR #### [facility] [address] [place] [address] Dr. Dwight Waters CAST NONE SEEN Normal NONE SEEN [facility] Comment on above: Performed By: #### U RTPCR #### [facility] [address] [place] [address] Dr. Dwight Waters Crystals LM Nom (Urine sed) NONE SEEN Normal NONE SEEN [facility] Comment on above: Performed By: #### U RTPCR #### [facility] [address] [place] [address] Dr. Dwight Waters Epithelial cells LM Ql (Urine sed) RARE Normal NONE SEEN /RARE [facility] Comment on above: Performed By: #### U RTPCR #### [facility] [address] [place] [address] Dr. Dwight Waters MUCOUS NONE SEEN Normal NONE SEEN [facility] Comment on above: Performed By: #### U RTPCR #### [facility] [address] [place] [address] Dr. Dwight Waters RBC (U) [#/Vol] /uL Abnormal 0-[address] [facility] Comment on above: Performed By: #### U RTPCR #### [facility] [address] [place] [address] Dr. Dwight Waters WBC NONE SEEN Normal NONE SEEN [facility] Comment on above: Performed By: #### U RTPCR #### [facility] [address] [place] [address] Dr. Dwight Waters K (Potassium)on 01-06-2020 Potassium [Moles/Vol] 4.4 mmol/L Normal 3.7-5.3 [facility] Comment on above: Performed By: #### K #### [facility] [address] [place], [place] [id number] Mold Preparer: Kehinde Woodward MD Potassiumon 01-06-2020 Potassium [Moles/Vol] 4.4 mmol/L 3.7 - 5.3 mmol/L [facility] Work Phone: Hemoglobin and Hematocrit, B loodon 10-24-2019 Hematocrit (Bld) [Volume fraction] 23.6 % Low 40.7 - 50.3 % [place], [place] Hemoglobin (Bld) [Mass/Vol] 7.3 g/dL Low 13 - 17 g/dL [place] Interpretation and review of laboratory results Abnormal [place] Hgb/Hcton 10-24-2019 Hematocrit (Bld) [Volume fraction] 23.6 % Low 40.7-50.3 [facility] Comment on above: Performed By: #### H H #### [facility] [address] [place], [place] [id number] Mold Preparer: Kehinde Woodward MD Hemoglobin (Bld) [Mass/Vol] 7.3 g/dL Low 13.0-17.0 [facility] Comment on above: Performed By: #### H H #### [facility] [address] [place] [address] [place] [address] Mold Preparer: Kehinde Woodward MD Hemoglobinon 08-27-2019 Hemoglobin (Bld) [Mass/Vol] 7.5 g/dL Low 13.0-17.0 [facility] Comment on above: Performed By: #### H GB #### [address] [place] [address] Mold Preparer: Kehinde Woodward MD Hemoglobin (Bld) [Mass/Vol] 7.5 g/dL Low 13 - 17 g/dL [place] Interpretation and review of laboratory results Abnormal [place] Hemoglobinon 08-08-2019 Hemoglobin (Bld) [Mass/Vol] 8.3 g/dL Low 13.0-17.0 [facility] Comment on above: Performed By: #### H GB #### [facility] [address] [place] [address] Mold Preparer: Kehinde Woodward MD Hemoglobin (Bld) [Mass/Vol] 8.3 g/dL Low 13 - 17 g/dL [place] Interpretation and review of laboratory results Abnormal [place] Hemoglobinon 08-04-2019 Hemoglobin (Bld) [Mass/Vol] 8.0 g/dL Low 13.0-17.0 [facility] Comment on above: Performed By: #### H GB #### [facility] [address] [place] [address] Mold Preparer: Kehinde Woodward MD Hemoglobin A1Con 08-03-2019 HbA1c (Bld) [Mass fraction] % Low 4.8-5.9 [facility] Comment on above: Result Comment: The ADA and AACC recommend providing the estimated average glucose result to permit better patient understanding of their HBA1c result. Performed By: #### G LYHGB #### [facility] [address] [place] [address] Mold Preparer: Kehinde Woodward MD Glucose [Mass/Vol] mg/dL mg/dL [place] Comment on above: The ADA and AACC rec ommend providing the estimated average glucose result to permit better patient understanding of their HBA1c result. HbA1c (Bld) [Mass fraction] % Low 4.8 - 5.9 % [place] Interpretation and review of laboratory results Abnormal [place] Hemoglobinon 08-01-2019 Hemoglobin (Bld) [Mass/Vol] 8.1 g/dL Low 13.0-17.0 [facility] Comment on above: Performed By: #### H GB #### [facility] [address] [place] [address] Mold Preparer: Kehinde Woodward MD Hemoglobin (Bld) [Mass/Vol] 8.1 g/dL Low 13 - 17 g/dL [place] Interpretation and review of laboratory results Abnormal [place] Hgb/Hcton 06-10-2019 Hematocrit (Bld) [Volume fraction] 24.3 % Low 40.7-50.3 [facility] Comment on above: Performed By: #### H H #### [facility] [address] [place] [address] Mold Preparer: Kehinde Woodward MD Hemoglobin (Bld) [Mass/Vol] 7.4 g/dL Low 13.0-17.0 [facility] Comment on above: Performed By: #### H H #### [facility] [address] [place] [address] Mold Preparer: Kehinde Woodward MD Hemoglobinon 06-01-2019 Hemoglobin (Bld) [Mass/Vol] 7.2 g/dL Low 13.0-17.0 [facility] Comment on above: Performed By: #### H GB #### [facility] [address] [place] [address] Mold Preparer: Kehinde Woodward MD K (Potassium)on 01-14-2019 Potassium [Moles/Vol] 3.6 mmol/L Low 3.7-5.3 [facility] Comment on above: Performed By: #### K #### [facility] [address] [place] [id number] Mold Preparer: Kehinde Woodward MD Otheron 10-19-2018 IMPRESSION: 1. Cirrh otic morphology of the liver. No focal lesion [...] MDRD vol rate/area 12 mL/min/{1.73_m2} Low >60 mL/min/1.73s qM LAB, [facility] GFR/1.73 sq M.predicted MDRD vol rate/area 14 mL/min/{1.73_m2} Low >60 mL/min/1.73s qM LAB, [facility] Glucose mass conc 177 mg/dL [...] characteristics determined by Toxicology Laboratory at [facility]. It has not been cleared [...] Amitriptyline(50), Amphetamine(250), Atenolol(500), Barbiturates(1000), Benzoylecgonine(50), Buprenorphine(50), Bupropion(25), Caffeine(16911), Chlordiazepoxide(50), Chlorpheniramine(100), Chlorpromazine(50), Citalopram(100), Clonazepam(200), Cocaine(25), Codeine(200), [...] Code LAB, [facility] TOXICOLOGY SCREEN URINE - [facility] 10-12-2018 Drugs identified Screen Nom (U) For Medical Purposes Only, Non-forensic, screen results are presumptive. No confirmatory testing will follow. Invalid Interpretation Code LAB, [facility] Comment on above: This Liquid Chromato graphy Mass Spectrometry (LC/MS/MS) test was developed and its performance characteristics determined by Toxicology Laboratory at [facility]. It has not been cleared [...] Amitriptyline(50), Amphetamine(250), Atenolol(500), Barbiturates(200), Benzoylecgonine(50), Buprenorphine(500), Bupropion(25), Caffeine(68546), Cannabinoids(THC)(50), Chlordiazepoxide(50), Chlorpheniramine(100), Chlorpromazine(50), Citalopram(100), Clonazepam(200), Cocaine(25), [...] Time Vital Sign Value Performing Clinician Facility 01-23-2024 15:04-0500 Body temperature 97.9 [degF] Kevin Sage MD Work Phone: [facility] 01-23-2024 15:04-0500 Diastolic blood pressure 67 mm[Hg] Kevin Sage MD Work Phone: [facility] 01-23-2024 15:04-0500 Heart rate 51 /min Kevin Sage MD Work Phone: [facility] 01-23-2024 15:04-0500 Respiratory rate 16 /min Kevin Sage MD Work Phone: [facility] 01-23-2024 15:04-0500 SaO2% (BldA) [Mass fraction] 94 % Kevin Sage MD Work Phone: [facility] 01-23-2024 15:04-0500 Systolic blood pressure 151 mm[Hg] Kevin Sage MD Work Phone: [facility] 02-24-2024 10:46-0500 Body mass index (BMI) [Ratio] 30.94 kg/m2 Kevin Sage MD Work Phone: [facility] 01-23-2024 10:46-0500 Body weight 89.6 kg Kevin Sage MD Work Phone: [facility] 01-18-2024 11:21-0500 Body height 170.2 cm Kevin Sage MD Work Phone: [facility] 01-06-2024 09:04-0500 Body height 170.2 cm Uzly Kiana SYNTHETIC FILAMENT SPINNER Work Phone: [facility] 01-06-2024 09:04-0500 Body mass index (BMI) [Ratio] 32.42 kg/m2 Zuly Aichholz SYNTHETIC FILAMENT SPINNER Work Phone: [facility] 01-06-2024 09:04-0500 Body temperature 97.81 [degF] Zuly Lexiehlatishaz SYNTHETIC FILAMENT SPINNER Work Phone: [facility] 01-06-2024 09:04-0500 Body weight 93.89 kg Zuly Aichholz SYNTHETIC FILAMENT SPINNER Work Phone: [facility] 01-06-2024 09:04-0500 Diastolic blood pressure 70 mm[Hg] Zuly Lexiehlatishaz SYNTHETIC FILAMENT SPINNER Work Phone: [facility] 01-06-2024 09:04-0500 Heart rate 95 /min Zuly Aichholz SYNTHETIC FILAMENT SPINNER Work Phone: [facility] 01-06-2024 09:04-0500 Respiratory rate 17 /min Zuly Aichholz SYNTHETIC FILAMENT SPINNER Work Phone: [facility] 01-06-2024 09:04-0500 SaO2% (BldA) [Mass fraction] 99 % Zuly Lexiehholz SYNTHETIC FILAMENT SPINNER Work Phone: [facility] 01-06-2024 09:04-0500 Systolic blood pressure 138 mm[Hg] Zuly Lexiehholz SYNTHETIC FILAMENT SPINNER Work Phone: [facility] 09-11-2023 10:31-0400 Body temperature 97.81 [degF] Steve Yeison MBBS Work Phone: [facility] 09-11-2023 10:31-0400 Diastolic blood pressure 66 mm[Hg] Steve Yeison MBBS Work Phone: [facility] 09-11-2023 10:31-0400 Heart rate 70 /min Steve Yeison MBBS Work Phone: [facility] 09-11-2023 10:31-0400 Respiratory rate 20 /min Steve Yeison MBBS Work Phone: [facility] 09-11-2023 10:31-0400 SaO2% (BldA) [Mass fraction] 91 % Steve Yeison MBBS Work Phone: [facility] 09-11-2023 10:31-0400 Systolic blood pressure 129 mm[Hg] Steve Yeison MBBS Work Phone: [facility] 09-10-2023 15:50-0400 Body mass index (BMI) [Ratio] 31.99 kg/m2 Steve Yeison MBBS Work Phone: [facility] 09-10-2023 15:50-0400 Body weight 92.67 kg Steve Yeison MBBS Work Phone: [facility] 09-02-2023 07:32-0400 Body height 170.2 cm Steve Yeison MBBS Work Phone: [facility] 08-28-2023 13:33-0400 Body height 170.2 cm Steve Yeison MBBS Work Phone: [facility] 08-28-2023 13:33-0400 Body mass index (BMI) [Ratio] 32.12 kg/m2 Steve Yeison MBBS Work Phone: [facility] 08-28-2023 13:33-0400 Body temperature 97.3 [degF] Stevemassiel Farrari MBBS Work Phone: [facility] 08-28-2023 13:33-0400 Body weight 93.03 kg Stevemassiel Farrari MBBS Work Phone: [facility] 08-28-2023 13:33-0400 Diastolic blood pressure 41 mm[Hg] Steve Yeison MBBS Work Phone: [facility] 08-28-2023 13:33-0400 Heart rate 116 /min Stevemassiel Farrari MBBS Work Phone: [facility] 08-28-2023 13:33-0400 Systolic blood pressure 106 mm[Hg] Steve Yeison MBBS Work Phone: [facility] 06-12-2023 14:50-0400 Body mass index (BMI) [Ratio] 33.8 kg/m2 Rebeca Olsen MAINTENANCE SHOP WELDER-SLASHER MACHINE OPERATOR Work Phone: [facility] 06-12-2023 14:50-0400 Body temperature 97.3 [degF] Rebeca Olsen MAINTENANCE SHOP WELDER-SLASHER MACHINE OPERATOR Work Phone: [facility] 06-12-2023 14:50-0400 Body weight 97.89 kg Rebeca Olsen MAINTENANCE SHOP WELDER-SLASHER MACHINE OPERATOR Work Phone: [facility] 06-12-2023 14:50-0400 Diastolic blood pressure 77 mm[Hg] Rebeca Olsen MAINTENANCE SHOP WELDER-SLASHER MACHINE OPERATOR Work Phone: [facility] 06-12-2023 14:50-0400 Heart rate 76 /min Rebeca Olsen MAINTENANCE SHOP WELDER-SLASHER MACHINE OPERATOR Work Phone: [facility] 06-12-2023 14:50-0400 Systolic blood pressure 146 mm[Hg] Rebeca Olsen MAINTENANCE SHOP WELDER-SLASHER MACHINE OPERATOR Work Phone: [facility] 01-16-2023 08:57-0500 Body height 170.2 cm [facility] Work Phone: [facility] 01-16-2023 08:57-0500 Body mass index (BMI) [Ratio] 33.66 kg/m2 [facility] Work Phone: [facility] 01-16-2023 08:57-0500 Body temperature 97.3 [degF] [facility] Work Phone: [facility] 01-16-2023 08:57-0500 Body weight 97.48 kg [facility] Work Phone: [facility] 01-16-2023 08:57-0500 Diastolic blood pressure 75 mm[Hg] [facility] Work Phone: [facility] 01-16-2023 08:57-0500 Heart rate 76 /min [facility] Work Phone: [facility] 01-16-2023 08:57-0500 Systolic blood pressure 142 mm[Hg] [facility] Work Phone: [facility] 09-10-2022 09:38-0400 Body height 170.2 cm Ryan Yepez MD Work Phone: [facility] 09-10-2022 09:38-0400 Body mass index (BMI) [Ratio] 33.67 kg/m2 Ryan Yepez MD Work Phone: [facility] 09-10-2022 09:38-0400 Body weight 97.52 kg Ryan Yepez MD Work Phone: [facility] 09-10-2022 09:38-0400 Diastolic blood pressure 83 mm[Hg] Ryan Yepez MD Work Phone: 1(315)435-237182 [place] [address] 09-10-2022 09:38-0400 Heart rate 64 /min Ryan Yepez MD Work Phone: 9(358)727-997882 [place] [address] 09-10-2022 09:38-0400 SaO2% (BldA) [Mass fraction] 96 % Ryan Yepez MD Work Phone: 3(329)387-493682 [place] [address] 09-10-2022 09:38-0400 Systolic blood pressure 129 mm[Hg] Ryan Yepez MD Work Phone: 2(451)452-679382 [place] [address] 07-07-2022 13:48-0400 Diastolic blood pressure 76 mm[Hg] Ryan Yepez MD Work Phone: 9(782)535-447982 [place] [address] 07-07-2022 13:48-0400 Heart rate 82 /min Ryan Yepez MD Work Phone: 7(000)285-438182 [place] [address] 07-07-2022 13:48-0400 SaO2% (BldA) [Mass fraction] 96 % Ryan Yepez MD Work Phone: 0(705)929-388982 [place] [address] 07-07-2022 13:48-0400 Systolic blood pressure 141 mm[Hg] Ryan Yepez MD Work Phone: 0(763)900-329282 [place] [address] 06-27-2022 13:32-0400 Body height 170.2 cm Ryan Yepez MD Work Phone: 6(418)409-127982 [place] [address] 06-27-2022 13:32-0400 Body mass index (BMI) [Ratio] 34.24 kg/m2 Ryan Yepez MD Work Phone: 3(692)329-636682 [place] [address] 06-27-2022 13:32-0400 Body temperature 98.6 [degF] Ryan Yepez MD Work Phone: 1(952)966-718482 [place] [address] 06-27-2022 13:32-0400 Body weight 99.16 kg Ryan Yepez MD Work Phone: [facility] 06-27-2022 13:32-0400 Diastolic blood pressure 78 mm[Hg] Ryan Yepez MD Work Phone: [facility] 06-27-2022 13:32-0400 Heart rate 77 /min Ryan Yepez MD Work Phone: [facility] 06-27-2022 13:32-0400 SaO2% (BldA) [Mass fraction] 95 % Ryan Yepez MD Work Phone: [facility] 06-27-2022 13:32-0400 Systolic blood pressure 121 mm[Hg] Ryan Yepez MD Work Phone: [facility] 06-27-2022 10:52-0400 Body height 170.2 cm Rena Brewster RN [facility] 06-27-2022 10:52-0400 Body mass index (BMI) [Ratio] 34.46 kg/m2 Rena Brewster RN [facility] 06-27-2022 10:52-0400 Body temperature 98.2 [degF] Rena Brewster RN [facility] 06-27-2022 10:52-0400 Body weight 99.79 kg Rena Brewster RN [facility] 06-27-2022 10:52-0400 Diastolic blood pressure 73 mm[Hg] Rena Brewster RN [facility] 06-27-2022 10:52-0400 Heart rate 78 /min Rena Brewster RN [facility] 06-27-2022 10:52-0400 Respiratory rate 20 /min Rena Brewster RN [facility] 06-27-2022 10:52-0400 SaO2% (BldA) [Mass fraction] 97 % Rena Brewster RN [facility] 06-27-2022 10:52-0400 Systolic blood pressure 135 mm[Hg] Rena Brewster RN [facility] 06-12-2022 14:23-0400 Body mass index (BMI) [Ratio] 34.59 kg/m2 Steve Yeison MBBS Work Phone: [facility] 06-12-2022 14:23-0400 Body temperature 97 [degF] Steve Yeison MBBS Work Phone: [facility] 06-12-2022 14:23-0400 Body weight 100.2 kg Steve Yeison MBBS Work Phone: [facility] 06-12-2022 14:23-0400 Diastolic blood pressure 66 mm[Hg] Steve Yeison MBBS Work Phone: [facility] 06-12-2022 14:23-0400 Heart rate 63 /min Steve Yeison MBBS Work Phone: [facility] 06-12-2022 14:23-0400 Systolic blood pressure 133 mm[Hg] Steve Yeison MBBS Work Phone: [facility] 05-20-2022 15:21-0400 Body temperature 97.9 [degF] Gian Villatoro MD Work Phone: [facility] 05-20-2022 15:21-0400 Diastolic blood pressure 64 mm[Hg] Gian Villatoro MD Work Phone: [facility] 05-20-2022 15:21-0400 Heart rate 55 /min Gian Villatoro MD Work Phone: [facility] 05-20-2022 15:21-0400 Respiratory rate 15 /min Gian Villatoro MD Work Phone: [facility] 05-20-2022 15:21-0400 SaO2% (BldA) [Mass fraction] 95 % Gian Villatoro MD Work Phone: [facility] 05-20-2022 15:21-0400 Systolic blood pressure 145 mm[Hg] Gian Villatoro MD Work Phone: [facility] 05-19-2022 12:15-0400 Body mass index (BMI) [Ratio] 35.87 kg/m2 Gian Villatoro MD Work Phone: [facility] 05-19-2022 12:15-0400 Body weight 103.92 kg Gian Villatoro MD Work Phone: [facility] Comment on above: standing scale 05-16-2022 16:19-0400 Body height 170.2 cm Gian Villatoro MD Work Phone: [facility] 10-19-2018 08:44-0500 BMI (Body Mass Index) 26.58 kg/m2 [facility] Work Phone: 10-19-2018 08:44-0500 BP Diastolic 76 mm[Hg] [facility] Work Phone: 10-19-2018 08:44-0500 BP Systolic 144 mm[Hg] [facility] Work Phone: 10-19-2018 08:44-0500 Height 172.7 cm [facility] Work Phone: 10-19-2018 08:44-0500 Pulse (Heart Rate) 92 /min [facility] Work Phone: 10-19-2018 08:44-0500 Pulse Oximetry 99 % [facility] Work Phone: 10-19-2018 08:44-0500 Respiratory Rate 16 /min [facility] Work Phone: 10-19-2018 08:44-0500 Weight 79.29 kg Christin Elizabeth [facility] Work Phone: 10-12-2018 09:50-0500 BMI (Body Mass Index) 27.24 kg/m2 [facility] Work Phone: 10-12-2018 09:50-0500 Body Temperature 98.6 [degF] [facility] Work Phone: 10-12-2018 09:50-0500 BP Diastolic 80 mm[Hg] [facility] Work Phone: 10-12-2018 09:50-0500 BP Systolic 157 mm[Hg] [facility] Work Phone: 10-12-2018 09:50-0500 Height 169.5 cm [facility] Work Phone: 10-12-2018 09:50-0500 Pulse (Heart Rate) 94 /min [facility] Work Phone: 10-12-2018 09:50-0500 Weight 78.29 kg [facility] Work Phone: Encounters Encounter Date Encounter Type Care Provider Facility Start: 01-16-2024 Encounter for other preprocedural examination KELVIN PACHECO [facility] Start: 01-16-2024 End: 01-23-2024 Evaluation and management of inpatient PROVIDER NOT IN SYSTEM Facility:[facility] Start: 01-16-2024 End: 01-23-2024 Evaluation and management of inpatient Kevin Sage MD Work Phone: [id number] Comment on above: Pleural effusion on right Start: 01-16-2024 End: 01-23-2024 Patient encounter status Kevin Sage MD Work Phone: [facility] Work Phone: Start: 01-12-2024 End: 01-12-2024 ambulatory Angel Fete RPh,PharmD [facility] Start: 01-12-2024 End: 01-12-2024 Patient encounter procedure Angel Fete RPh,PharmD [facility] Start: 01-08-2024 Clinisync Result Encounter Generic External Data Provider [facility] External Department Unsolicited Start: 01-08-2024 Clinisync Result Encounter Generic External Data Provider [facility] External Department Unsolicited Start: 01-06-2024 End: 01-06-2024 ambulatory ZULY AICHHOLZ Not Available Start: 01-06-2024 End: 01-06-2024 Office outpatient visit 25 minutes Zuly Marissaz SYNTHETIC FILAMENT SPINNER Work Phone: [facility] Comment on above: Bilateral lower extr emity edema (Primary Dx); 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); Atherosclerosis 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); Obesity (BMI 30-39.9); DARLENE (obstructive sleep apnea); Tremor; Immunocompromised ([facility]); Primary hypertension ([facility]); Shortness of breath Start: 01-01-2024 Clinisync Result Encounter Generic External Data Provider [facility] External Department Unsolicited Start: 01-01-2024 Clinisync Result Encounter Generic External Data Provider [facility] External Department Unsolicited Start: 11-03-2023 End: 11-03-2023 ambulatory ZULY AICHHOLZ Not Available Start: 10-06-2023 ambulatory Angel Fete RPh,PharmD [facility] Start: 10-06-2023 Patient encounter procedure Angel Fete RPh,PharmD [facility] Start: 09-29-2023 ambulatory ZULY AICHHOLZ Facility: [facility] Start: 09-24-2023 ambulatory ZULY AICHHOLZ Facility: [facility] Start: 09-23-2023 ambulatory ZULY AICHHOLZ Facility: [facility] Start: 09-15-2023 ambulatory ZULYTray BRUNO Facility: [facility] Start: 08-28-2023 End: 09-11-2023 Evaluation and management of inpatient STEVE LATHAM Facility:[facility] Start: 08-28-2023 End: 09-11-2023 Evaluation and management of inpatient Steve Latham MBBS Work Phone: [id number] Start: 08-28-2023 ambulatory STEVE LATHAM Facility:[facility] Start: 08-28-2023 End: 08-28-2023 Office outpatient visit 25 minutes Steve Latham MBBS Work Phone: [facility] Comment on above: Immunosuppressed sta tus (Primary Dx); Kidney replaced by transplant; Aftercare following organ transplant; High risk medication use; Other general symptoms and signs; Abnormal blood chemistry; Hypertension secondary to other renal disorders Start: 08-19-2023 ambulatory Meka rueda [facility] Outpatient RX Yanci Start: 08-19-2023 Patient encounter procedure Meka Munoz [facility] Out[facility] Yanci Start: 06-12-2023 ambulatory REBECA M PRETTY Joyner ty:[facility] Start: 06-12-2023 End: 06-12-2023 Office outpatient visit 25 minutes Steve Latham MBBS Work Phone: [facility] Comment on above: 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) Start: 06-10-2023 ambulatory Maren Bar RPh,PharmD Pharmacy Outpatient RX [facility] Start: 06-10-2023 Patient encounter procedure Maren Bar RPh,PharmD Pharmacy Outpatient RX [facility] Start: 05-26-2023 ambulatory ZULY BRUNO Facility: [facility] Start: 04-28-2023 End: 04-29-[address] DOCTOR EVANS Facility: Start: 04-13-2023 End: 04-13-2023 ambulatory [facility] Start: 03-12-2023 ambulatory Angel Carpio RPlydia,PharmD Pharmacy Outpatient RX [facility] Start: 03-12-2023 Patient encounter procedure Angel Fete RPh,PharmD Pharmacy Outpatient [facility] Start: 03-10-2023 ambulatory Angel Carpio RPh,PharmD [facility] Outpatient [facility] Start: 03-10-2023 Patient encounter procedure Angel Carpio RPh,PharmD Pharmacy Outpatient [facility] Start: 03-02-2023 End: 03-03-[address] DOCTOR EVANS Facility:[facility] Start: 01-16-2023 End: 01-16-2023 Office outpatient visit 25 minutes Daisha Max DO Work Phone: [facility] Comment on above: Abnormal blood chemi [...] MD Work Phone: [facility] Comment on above: BPH with obstruction /lower urinary tract symptoms (Primary Dx); Encounter for screening for malignant neoplasm of prostate Start: 08-28-2022 End: 08-29-2022 ambulatory ROB BRUNO Facility:[facility] Start: 08-14-2022 End: 08-15-[address] DOCTOR EVANS Facility:[facility] Start: 07-07-2022 End: 07-07-2022 Patient encounter procedure Ryan Yepez MD Work Phone: [facility] Comment on above: Other hydronephrosis (Primary Dx); [...] MD Work Phone: [facility] Comment on above: Other hydronephrosis (Primary Dx) [...] Phone: [facility] Comment on above: Immunosuppressed sta tus [...] ALEXANDER Facility:[facility] Start: 03-14-2022 ambulatory Comfort Rivera [facility] Work Phone: Pharmacy Outpatient RX Yanci Start: 03-14-2022 Patient encounter procedure Comfort Rivera [facility] Work Phone: Pharmacy Outpatient RX Y[facility]i Start: 06-14-2021 End: 06-14-2021 ambulatory Comfort Rivera [facility] Work Phone: [facility] Start: 06-14-2021 Patient encounter procedure Comfort Rivera [facility] Work Phone: [facility] Start: 01-20-2020 End: 01-27-2020 Patient encounter procedure PEPE CASE Facility:[facility] Start: 01-06-2020 End: 01-07-2020 [facility] Start: 01-06-2020 End: 01-06-2020 Subsequent hospital visit by physician [facility] Start: 10-24-2019 End: 10-25-2019 Patient encounter procedure TANA Colón [facility] Start: 10-24-2019 End: 10-24-2019 Subsequent hospital visit by physician [facility] Start: 08-27-2019 End: 08-28-2019 Patient encounter procedure RENA GUDINO [facility] Start: 08-27-2019 End: 08-27-2019 Subsequent hospital visit by physician [facility] Start: 08-08-2019 End: 08-09-2019 Patient encounter procedure [facility] Start: 08-08-2019 End: 08-08-2019 Subsequent hospital visit by physician [facility] Start: 08-03-2019 End: 08-04-2019 Patient encounter procedure [facility] Start: 08-03-2019 End: 08-03-2019 Subsequent hospital visit by physician [facility] Start: 08-01-2019 End: 08-02-2019 Patient encounter procedure [facility] Start: 08-01-2019 End: 08-01-2019 Subsequent hospital visit by physician [facility] Start: 06-10-2019 End: 06-11-2019 Patient encounter procedure [facility] Start: 06-01-2019 End: 06-02-2019 Patient encounter procedure [facility] Start: 01-14-2019 End: 01-15-2019 Patient encounter procedure [facility] Start: 11-17-2018 End: 11-17-2018 Patient encounter procedure Melania Pierson [facility] Pre Transplant Office Comment on above: Social Work Follow-u p Start: 10-19-2018 End: 10-19-2018 Patient encounter Autumn [facility] Pre Transplant Office Comment on [...] 10-13-2018 End: 10-13-2018 Patient encounter procedure Autumn [facility] Pre Transplant Office Comment on above: Reschedule Outside Medical Allan rds Request Start: 10-12-2018 End: 10-12-2018 Patient encounter procedure Sophie Singerhaja [facility] Pre Transplant Office Comment on above: Alcoholic cirrhosis, unspecified whether ascites present (Primary Dx); Pre-transplant evaluation for liver transplant Start: 10-12-2018 End: 10-12-2018 Office outpatient new 60 minutes Alfredito Restrepo Work Phone: [facility] Pre Transplant Office Comment on above: Alcoholic cirrhosis, unspecified whether ascites present; ESRD (end stage renal disease) on dialysis; Pre-transplant evaluation for liver transplant Start: 10-06-2018 End: 10-06-2018 Patient encounter procedure Yovani Maglaie Orr Work Phone: Department of Radiology Comment on above: Canceled (Insurance Company Redirected Pt) Start: 10-05-2018 Patient encounter status Comfort Rivera [facility] Work Phone: [facility] Procedures Date Procedure Procedure Detail Performing Clinician Start: 01-23-2024 Glucose measurement, blood Kelvin Pacheco MD, MBBS Work Phone: Start: 01-23-2024 Glucose measurement, blood LU Jain MD Work Phone: Start: 01-23-2024 Assay of magnesium Just in Jake LUZ Work Phone: Start: 01-23-2024 Hepatic function panel Arelis Mera MD Work Phone: Start: 01-23-2024 Oscillating positive expiratory pressure (flutter) physiotherapy Arelis Mera MD Work Phone: Start: 01-22-2024 CARDIAC RHYTHM Other Ot her Start: 01-22-2024 US Unspecified body region Mini Khan MD Work Phone: Start: 01-22-2024 End: 01-22-2024 Antibody screen Kevin Sage MD Work Phone: Comment on above: Performed By: #### X M ####[facility] (DEFAULT)[address] [place] [address] Start: 01-22-2024 Assay of magnesium Just in Jake LUZ Work Phone: Start: 01-22-2024 Drug screen quantita tive tacrolimus Arelis Mera MD Work Phone: Start: 01-21-2024 Assay of magnesium Just in Jake LUZ Work Phone: Start: 01-21-2024 Drug screen quantita tive tacrolimus Arelis Mera MD Work Phone: Start: 01-20-2024 Right heart cath o2 saturation & cardiac output LU Jain MD Work Phone: Start: 01-20-2024 End: 01-20-2024 Blood count hemoglobin LU Jain MD Work Phone: Start: 01-20-2024 Cardiac catheterization LU Jain MD Work Phone: Start: 01-20-2024 Assay of magnesium Just in Jake LUZ Work Phone: Start: 01-20-2024 Hepatic function panel Arelis Mera MD Work Phone: Start: 01-20-2024 ITRACONAZOLE LEVEL Jennifer norbert Caldwellowan [facility] Work Phone: Start: 01-20-2024 Oscillating positive expiratory pressure (flutter) physiotherapy Arelis Mera MD Work Phone: Start: 01-19-2024 Duplex scan hemodial ysis access Arelis Mera MD Work Phone: Start: 01-19-2024 Oscillating positive expiratory pressure (flutter) physiotherapy Arelis Mera MD Work Phone: Start: 01-19-2024 Assay of magnesium Just in Jake LUZ Work Phone: Start: 01-19-2024 Drug screen quantita tive tacrolimus Arelis Mera MD Work Phone: Start: 01-19-2024 Iadna nos quantifica tion each organism Melania Ortiz Alarcon [facility] Work Phone: Start: 01-18-2024 Echocardiography STEVE N LAURENCE Start: 01-18-2024 Echo tthrc r-t 2d w/wom-mode compl spec&colr d Arelis Mera MD Work Phone: Start: 01-18-2024 Assay of magnesium Just in Jake LUZ Work Phone: Start: 01-18-2024 Hepatic function panel Arelis Mera MD Work Phone: Start: 01-17-2024 Ct abdomen & pelvis w/o contrast material Arelis Mera MD Work Phone: Start: 01-17-2024 Assay of magnesium Just in Jake LUZ Work Phone: Start: 01-17-2024 Hepatic function panel Arelis Mera MD Work Phone: Start: 01-17-2024 Iaad ia mult step me thod nos each organism Arelis Mera MD Work Phone: Start: 01-16-2024 Radiologic exam ches t 2 views Arelis Mera MD Work Phone: Start: 01-16-2024 Dup-scan artl angela abdl/pel/scrot&/rpr orgn com Timothy Joseph MD Work Phone: Start: 01-16-2024 Drug screen quantita tive tacrolimus Timothy Joseph MD Work Phone: Start: 01-16-2024 Bilirubin direct Timothy Joseph MD Work Phone: Start: 01-16-2024 CBC AND ELECTRONIC DIFF Timothy Joseph MD Work Phone: Start: 01-16-2024 Complete blood count with white cell differential, automated Timothy Joseph MD Work Phone: Start: 01-16-2024 DARYL AURIS SCREEN BY PCR Carol Ann Capps MAINTENANCE SHOP WELDER-RIVETER 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 [address] [place] [address] Dr. Dwight Waters Start: 07-07-2022 Rmvl nfros tube req fluoro guidance Ryan Yepez MD Work Phone: Start: 06-27-2022 Ct abdomen & pelvis w/o contrast material Evan Byrd MD Work Phone: Start: 06-12-2022 Culture bct isol&prs mptv id isolate ea urine Steve S Yeison MBBS Work Phone: Start: 06-12-2022 EXTRA MICRO Steve S Nor i MBBS Work Phone: Start: 06-12-2022 Hemoglobin glycosylated a1c Steve S Yeison MBBS Work Phone: Start: 06-12-2022 Hepatic function panel Yovani Orr MD Work Phone: Start: 06-12-2022 URINALYSIS REFLEX TO CULTURE Steve LEIGH Work Phone: Start: 05-20-2022 Urography antegrade rs&i [...] 05-16-2022 Drug screen quantita tive tacrolimus Evan B Donald MD Work Phone: Start: 05-16-2022 Chloride urine [...] recipient S/P liver trans plant Comfort Rivera [facility] Work Phone: Start: 04-08-2020 H/O: liver recipient Liver tra nsplant recipient Comfort Rivera [facility] Work Phone: Start: 01-06-2020 Potassium serum plasma/whole blood ROB KASMANI Start: 01-06-2020 Potassium serum plasma/whole blood Rena Rist Work Phone: Start: 10-24-2019 HEMOGLOBIN AND HEMAT OCRIT, BLOOD ROB KASMANI Start: 10-24-2019 Blood count hemoglobin Tana S Johar Work Phone: Start: 09-20-2019 Colonoscopy Generic Pr ovider Start: 08-27-2019 Blood count hemoglobin Rena Rist Work Phone: Start: 08-08-2019 Blood count hemoglobin ROB KASMANI Start: 08-08-2019 Blood count hemoglobin Rob Kasmani Work Phone: Start: 08-03-2019 Hemoglobin glycosylated a1c ROB KASMANI Start: 08-03-2019 Hemoglobin glycosylated a1c Rob Kasmani Work Phone: Start: 08-01-2019 Blood count hemoglobin Rob Kasmani Work Phone: Start: 07-25-2019 History of renal transplant De ceased-donor kidney transplant recipient Comfort Rivera [facility] Work Phone: Start: 06-10-2019 HEMOGLOBIN AND HEMAT OCRIT, BLOOD ROB KASMANI Start: 06-01-2019 Blood count hemoglobin ROB KASMANI Start: 03-22-2019 Lipid 1996 panel - S fabricio or Plasma Comfort Rivera [facility] Work Phone: Start: 01-14-2019 Potassium serum plasma/whole blood ROB PATINO Start: 10-19-2018 End: 10-19-2018 Ultrasonography of abdomen [...] Start: 10-12-2018 End: 10-12-2018 Antibody rubeola Yovani Orr Work Phone: Start: 10-12-2018 End: 10-12-2018 Antibody varicella-zoster Yovani Orr Work Phone: Start: 10-12-2018 End: 10-12-2018 Assay of ethanol Yovani Orr Work Phone: Start: 10-12-2018 End: 10-12-2018 Assay of ferritin Yovani Orr Work Phone: Start: 10-12-2018 End: 10-12-2018 Assay of iron Yovani Orr Work Phone: Start: 10-12-2018 End: 10-12-2018 Assay of parathormone Yovani Mejias [employer] Work Phone: Start: 10-12-2018 End: 10-12-2018 Assay of phosphatase alkaline [facility]ani [employer] Work Phone: Start: 10-12-2018 End: 10-12-2018 Bilirubin total Yovani Mejias [employer] Work Phone: Start: 10-12-2018 End: 10-12-2018 Calcium total Yovani Mejias [employer] Work Phone: Start: 10-12-2018 End: 10-12-2018 CBC, EDIF, PLATELET Yovani Mejias [employer] Work Phone: Start: 10-12-2018 End: 10-12-2018 Creatinine blood Yovani Mejias [employer] Work Phone: Start: 10-12-2018 End: 10-12-2018 Drug screening cannabinoids natural Yovani Mejias [employer] Work Phone: Start: 10-12-2018 End: 10-12-2018 Hepatitis a antibody haab Yovani Mejias [employer] Work Phone: Start: 10-12-2018 End: 10-12-2018 Hepatitis b core antibody hbcab total [facility]ovani [employer] Work Phone: Start: 10-12-2018 End: 10-12-2018 Hepatitis b surf antibody hbsab Yovani Mejias [employer] Phone: Start: 10-12-2018 End: 10-12-2018 Hepatitis c antibody Yovani Mejias [employer] Work Phone: Start: 10-12-2018 End: 10-12-2018 Iaad ia hepatitis b surface antigen Yovani Mejias [employer] Work Phone: Start: 10-12-2018 End: 10-12-2018 Iaad ia hiv-1 ag w/hiv-1 & hiv-2 antbdy single Yovani Mejias [employer] Phone: Start: 10-12-2018 End: 10-12-2018 PSA screening Yovani Mejias [employer] Work Phone: Start: 10-12-2018 End: 10-12-2018 Thromboplastin [...] recipient Liver repla vida by transplant Steve LEIGH Work Phone: H/O: liver recipient Liver trans plant recipient Daisha A Sobotka DO Work Phone: H/O: liver recipient S/P liver transplant Generic Provider History of renal transplant Kidn ey replaced by transplant Steve S Yeison MORENOBS Work Phone: History of renal transplant Dece ased-donor kidney transplant recipient Ryan Yepez MD Work Phone: History of renal transplant Kidn ey replaced by transplant Daisha A Sobotka DO Work Phone: History of renal transplant Kidn ey replaced by transplant Steve MORENOBS Work Phone: History of renal transplant Kidn ey replaced by transplant Steve S Yeison MBBS Work Phone: History of renal transplant Dece ased-donor kidney transplant recipient Steve MORENOBS Work Phone: Plan of Treatment Date Care Activity Detail Author Start: 09-20-2029 Screening for malignant neoplasm of colon [facility] Start: 01-23-2025 Potassium [Moles/volume] in Serum or Plasma POTASSIUM [facility] Start: 08-31-2024 Screening for malignant neoplasm of lung [facility] Start: 06-17-2024 End: 06-17-2024 ambulatory [facility] Start: 06-17-2024 End: 06-17-2024 Patient encounter procedure [facility] Start: 03-22-2024 Fasting lipid profile LIPID SCREENING [facility] Start: 03-22-2024 Lipid panel [facility] Start: 02-26-2024 End: 02-26-2024 Patient encounter procedure 02/26/2024 9:30 AM EDT Office Visit [facility] [address] [place] [phone] Candie Almaguer MD [address] [place] [phone] [facility] Start: 02-11-2024 End: 02-11-2024 Patient encounter procedure 02/11/2024 10:30 AM EDT Office Visit [facility] [address] [place] [address] Zuly Bruno, BA [address] [place] [phone] [facility] Start: 02-09-2024 End: 02-09-2024 Telemedicine consultation with patient 02/09/2024 3:30 PM EDT Telemedicine Infectious Diseases Care [facility] [address] [place] [phone] Hakeem Alamo MD [address] [place] [address] Infectious Diseases Care [facility] Start: 01-15-2024 End: 01-15-2024 ambulatory [facility] Start: 01-15-2024 End: 01-15-2024 Patient encounter procedure [facility] Start: 01-06-2024 End: 01-06-2026 Echocardiogram 2D complete Echocardiogram 2D complete Echocardiography Routine DARLENE (obstructive sleep apnea) Primary hypertension (CMS/HCC) Bilateral lower extremity edema Shortness of breath Expected: 01/06/2024 (Approximate), Expires: 01/06/2026 [facility] Work Phone: Comment on above: Expected: 01/06/2024 (Approximate), Expi res: 01/06/2026 Start: 01-06-2024 End: 01-06-2024 Patient encounter procedure 01/06/2024 9:00 AM EST Office Visit [facility] [address] [place] [phone] Zuly Bruno NP [address] [place] [phone] [facility] Start: 12-08-2023 End: 09-07-2024 CT Chest WO contrast [facility] Work Phone: Start: 12-01-2023 COVID-19 VACCINE (2 - Moderna risk series) COVID-19 VACCINE (2 - Moderna risk series) [facility] Start: 09-23-2023 End: 09-23-2023 ambulatory [facility] Start: 09-23-2023 End: 09-23-2023 Telemedicine consultation with patient 09/23/2023 4:00 PM EDT Telemedicine Infectious Diseases Care [facility] [address] [place] [address] Hakeem Alamo MD [address] [place] [phone] [facility] Start: 09-15-2023 End: 09-10-2024 ITRACONAZOLE LEVEL [facility] Start: 08-25-2023 End: 08-25-2024 ALLOSCREEN RECIPIENT (POST TX PRA) ALLOSCREEN RECIPIENT (POST TX PRA) Lab Routine Kidney replaced by transplant Aftercare following organ transplant Immunosuppressed status High risk medication use Other general symptoms and signs Abnormal blood chemistry Expected: 08/25/2023, Expires: 08/25/2024 [facility] Comment on above: Expected: 08/25/2023, Expires: Start: 07-31-2023 Influenza vaccination [facility] Start: 06-12-2023 End: 06-12-2023 Patient encounter procedure 06/12/2023 Office Visit Transplant Surgery Steve Latham MBBS [address] [place] [address] [facility] Start: 03-11-2023 End: 03-11-2023 Telemedicine consultation with patient 03/11/2023 Telemedicine Urology Ryan Yepez MD [address] [place] [address] [facility] Start: 01-16-2023 End: 01-16-2023 Patient encounter procedure 01/16/2023 Office Visit Transplant Surgery [facility] Start: 10-31-2022 End: 10-31-2022 Patient encounter procedure 10/31/2022 Office Visit Transplant Surgery Steve Latham MBBS [address] [place] [phone] [facility] Start: 09-10-2022 End: 09-10-2023 PSA screening PSA, SCREENING Lab Routine BPH with obstruction/lower urinary tract symptoms Encounter for screening for malignant neoplasm of prostate Expected: 09/10/2022 (Approximate), Expires: 09/10/2023 [facility] Comment on above: Expected: 09/10/2022 (Approximate), Expi res: 09/10/2023 Start: 08-11-2022 End: 08-11-2022 Patient encounter procedure 08/11/2022 Office Visit Urology Ryan Yepez MD [address] [place] [address] Urolog [facility] Start: 07-31-2022 Influenza vaccination [facility] Start: 07-07-2022 End: 07-07-2022 Patient encounter procedure 07/07/2022 Office Visit Urology Ryan Yepez MD [address] [facility] [address] [place] [address] Urolog [facility] Start: 07-07-2022 End: 07-07-2023 FLUORO IMAGING FOR UROLOGY [facility] Comment on above: Expected: 07/07/2022, Expires: 3 1 Occurrences starti ng 07/07/2022 until 07/07/2022 Start: 06-27-2022 End: 06-27-2022 Patient encounter procedure 06/27/2022 Office Visit Urology Ryan Yepez MD [address] [facility] [address] [place] [address] [facility] Start: 06-27-2022 End: 06-27-2023 Basic metabolic 2000 panel - Serum or Plasma BASIC METABOLIC PANEL Lab Routine Other hydronephrosis Expected: 06/27/2022, Expires: 06/27/2023 [facility] Comment on above: Expected: 06/27/2022, Expires: 3 Start: 06-27-2022 End: 06-27-2022 Patient encounter procedure 06/27/2022 Appointment Computerized Tomography Scan Ryan Yepez MD [address] [facility] [address] [place] [address] Department of Radiology Start: 06-15-2022 End: 05-16-2023 CT Abdomen and Pelvis WO contrast CT ABDOMEN/PELVIS WITHOUT CONTRAST Imaging Routine FAYE (acute kidney injury) Expected: 06/15/2022 (Approximate), Expires: 05/16/2023 [facility] Work Phone: Comment on above: Expected: 06/15/2022 (Approximate), Expi res: 05/16/2023 Start: 06-12-2022 End: 06-12-2022 Patient encounter procedure 06/12/2022 Office Visit Transplant Surgery Steve Latham MBBS [address] [place] [address] [facility] Start: 06-11-2022 End: 06-11-2023 BK VIRUS DNA QN, PCR, PLASMA BK VIRUS DNA QN, PCR, PLASMA Lab Routine Kidney replaced by transplant Liver replaced by transplant Abnormal blood chemistry Expected: 06/11/2022, Expires: 06/11/2023 [facility] Comment on above: Expected: 06/11/2022, Expires: Start: 06-04-2022 End: 06-04-2022 Patient encounter procedure 06/04/2022 Office Visit [facility] Start: 10-18-2021 End: 10-18-2021 Patient encounter procedure 10/18/2021 Office Visit Transplant Surgery Steve Latham MBBS [address] [place] [address] [facility] Start: 07-31-2021 Influenza vaccination INFLUENZA VACCINE (#1) [facility] Start: 07-26-2021 End: 07-26-2021 Patient encounter procedure 07/26/2021 Office Visit Transplant Surgery [facility] Start: 2021 Prostate specific antigen measurement [facility] Start: 2021 Screening for malignant neoplasm of lung LUNG CANCER SCREENING [facility] Start: 2021 Zoster vaccine hzv live for subcutaneous use ZOSTER (SHINGLES) VACCINE (1 of 2) [facility] Start: 09-20-2020 Colonoscopy COLORECTAL CANCER SCREENING DISCUSSION [facility] Start: 09-20-2020 Screening for malignant neoplasm of colon [facility] Start: 07-31-2019 [facility] Start: 05-22-2019 Annual Wellness Visit (AWV) [facility] Start: 04-18-2019 End: 10-19-2019 Ultrasonography of abdomen US ABDOMEN RUQ/LIVER/GB Routine Cirrhosis of liver without ascites, unspecified hepatic cirrhosis type Expected: 04/18/2019 (Approximate), Expires: 10/19/2019 [facility] Work Phone: Comment on above: Expected: 04/18/2019 (Approximate), Expi res: 10/19/2019 Start: 01-25-2019 End: 01-25-2019 Ambulatory 01/25/2019 Office Visit Gastroenterology Christin Elizabeth, MAINTENANCE SHOP WELDER-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 MACHINE OPERATOR [address] [place] [address] Division of Gastroenterology and Hepatology Gavin Start: 11-19-2018 End: 11-19-2018 Ambulatory 11/19/2018 Appointment [facility] Start: 11-19-2018 End: 11-19-2018 Ambulatory [facility] Start: 10-19-2018 End: 10-19-2018 Ambulatory Ultrasound Jakob Start: 10-12-2018 End: 10-12-2019 Hemoglobin A1c/Hemoglobin.total mass fraction (Bld) HEMOGLOBIN A1C Routine Alcoholic cirrhosis, unspecified whether ascites present Pre-transplant evaluation for liver transplant Expected: 10/12/2018, Expires: 10/12/2019 [facility] Work Phone: Comment on above: Expected: 10/12/2018, Expires: 9 Start: 10-12-2018 End: 10-12-2019 TYPE AND SCREEN - NOT FOR TRANSFUSION TYPE AND SCREEN - NOT FOR TRANSFUSION Routine Alcoholic cirrhosis, unspecified whether ascites present Pre-transplant evaluation for liver transplant Expected: 10/12/2018, Expires: 10/12/2019 [facility] Work Phone: Comment on above: Expected: 10/12/2018, Expires: 9 Start: 07-31-2018 Influenza vaccination INFLUENZA VACCINE (#1) [facility] Work Phone: Start: 2011 Fasting lipid profile LIPID SCREENING [facility] Work Phone: Start: 2011 Lipid screen Lipid screen [place], [place] Start: 1990 DTaP/Tdap/Td vaccine (1 - Tdap) DTaP/Tdap/Td vaccine (1 - Tdap) [place] Start: 1990 Hepatitis B vaccination HEP B VACCINE (1 of 3 - 19+ 3-dose series) [facility] Start: 1990 Hepatitis B Vaccine (1 of 3 - Risk Recombivax 3-dose series) Hepatitis B Vaccine (1 of 3 - Risk Recombivax 3-dose series) [place] Start: 1990 Third diphtheria, tetanus and acellular pertussis (DTaP) vaccination [facility] Start: 1990 Zoster vaccine hzv live for subcutaneous use ZOSTER (SHINGLES) VACCINE (1 of 2) [facility] Start: 1990 [facility] Start: 1989 Tetanus vaccination TETANUS [facility] Start: 1986 HIV screen HIV screen [place] Start: 02-17-1984 HIV screening HIV SCREENING DISCUSSION [facility] Work Phone: Start: 1983 COVID-19 VACCINE (1) COVID-19 VACCINE (1) [facility] Start: 1982 DTaP/Tdap/Td vaccine (1 - Tdap) DTaP/Tdap/Td vaccine (1 - Tdap) [place] Start: 1977 Pneumococcal 0-64 years Vaccine (1 of 3 - PCV13) Pneumococcal 0-64 years Vaccine (1 of 3 - PCV13) [place] Start: 1977 PNEUMOCOCCAL VACCINE SERIES (1 - PCV) PNEUMOCOCCAL VACCINE SERIES (1 - PCV) [facility] Start: 1977 PNEUMOCOCCAL VACCINE SERIES (1 of 2 - PCV) PNEUMOCOCCAL VACCINE SERIES (1 of 2 - PCV) [facility] Start: 1977 [facility] Start: 02-17-1976 COVID-19 VACCINE (#1) COVID-19 VACCINE (#1) [facility] Start: 02-17-1976 [facility] Start: 1971 COVID-19 VACCINE (#1) COVID-19 VACCINE (#1) [facility] Start: 1971 Hepatitis B vaccination HEP B VACCINE (1 of 3 - 3-dose series) [facility] Start: 1971 Medicare Annual Wellness (AWV) Medicare Annual Wellness (AWV) [facility] Start: 1971 Screening for malignant neoplasm of colon [facility] Start: 1971 Tetanus vaccination [facility] BK VIRUS DNA QN, PCR , PLASMA BK VIRUS DNA QN, PCR, PLASMA Lab Routine Kidney replaced by transplant Liver replaced by transplant Abnormal blood chemistry 06/12/2022 3:38 PM EDT [facility] CALCULI, URINARY (KIDNEY STONE) CALCULI, URINARY (KIDNEY STONE) Fluids Routine 05/19/2022 8:16 AM EDT [facility] Work Phone: CANNABINOIDS, QUANT (URINE)THC CONFIRMATION CANNABINOIDS, QUANT (URINE)THC CONFIRMATION Routine Alcoholic cirrhosis, unspecified whether ascites present ESRD (end stage renal disease) on dialysis Pre-transplant evaluation for liver transplant 10/12/2018 12:57 PM [facility] Work Phone: End: 09-10-2024 CHEM 6 (LYTES, BUN CREA) [facility] EBV VCA IGG AB EBV VCA IGG AB R outine Alcoholic cirrhosis, unspecified whether ascites present ESRD (end stage renal disease) on dialysis Pre-transplant evaluation for liver transplant 10/12/2018 12:57 PM [facility] Work Phone: Fungus identified in Unspecified specimen by Culture [facility] HLA TYPING (SOLID ORGAN) HLA TYPING (SOLID ORGAN) Routine Alcoholic cirrhosis, unspecified whether ascites present ESRD (end stage renal disease) on dialysis Pre-transplant evaluation for liver transplant 10/12/2018 12:57 PM [facility] Work Phone: HSV 1 AND 2 IGG ANTIBODY HSV 1 AND 2 IGG ANTIBODY Routine Alcoholic cirrhosis, unspecified whether ascites present ESRD (end stage renal disease) on dialysis Pre-transplant evaluation for liver transplant 10/12/2018 12:57 PM [facility] Work Phone: 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 specific culture [facility] PLACEMENT NEPHROSTOM Y CATHETER PERCUTANEOUS W/ IMAGE GUIDANCE PLACEMENT NEPHROSTOMY CATHETER PERCUTANEOUS W/ IMAGE GUIDANCE Imaging Routine Hydronephrosis due to obstruction of ureteral orifice FAYE (acute kidney injury) 05/17/2022 11:08 AM EDT [facility] DC POST VOID RESIDUAL DC POST VO ID RESIDUAL DC - OFFICE PERFORMED Routine BPH with obstruction/lower urinary tract symptoms Ordered: 09/10/2022 [facility] Comment on above: Ordered: 09/10/2022 PTH INTACT PTH INTACT Routi ne Alcoholic cirrhosis, unspecified whether ascites present ESRD (end stage renal disease) on dialysis Pre-transplant evaluation for liver transplant 10/12/2018 12:57 PM [facility] Work Phone: RUBEOLA IGG AB (IMMU NE STATUS) RUBEOLA IGG AB (IMMUNE STATUS) Routine Alcoholic cirrhosis, unspecified whether ascites present ESRD (end stage renal disease) on dialysis Pre-transplant evaluation for liver transplant 10/12/2018 12:57 PM [facility] Work Phone: End: 01-16-2024 Standard ECG ECG ECG Routine One Time for 1 Occurrences starting 01/16/2024 until 01/16/2024 [facility] Comment on above: One Time for 1 Occurrences starting 12/31 until 01/16/2024 End: 09-10-2024 TACROLIMUS LEVEL, TROUGH (PRE DRUG LEVEL) [facility] VARICELLA IGG AB (IM M STATUS) VARICELLA IGG AB (IMM STATUS) Routine Alcoholic cirrhosis, unspecified whether ascites present ESRD (end stage renal disease) on dialysis Pre-transplant evaluation for liver transplant 10/12/2018 12:57 PM EST [facility] Work Phone: Immunizations Immunization Date Immunization Notes Care Provider Fa cility 11-03-2023 influenza virus vacc ine, unspecified formulation Generic Provider [facility] 11-03-2023 Moderna SARS-CoV-2 50mcg/0.5mL Booster Generic Provider [facility] Payers Date Payer Category Payer Unknown [id number] [address] [facility] [id number] 2019-Present [id number] 2018 Medicaid MEDICAID [facility] DEPT OF JOB xxxxxxxxxxxx 2018-Present [phone] [address] [place] [address] xxxxxxxxxxxx [id number] 2018 Medicaid MEDICAID MEDICAI D [id number] 2018-Present [address] [place] [address] [id number] .[id number] 2018 Medicaid [id number] .[id number] 2018 Medicare MEDICARE MEDICAR E PART A AND B xxxxxxxxxxx 2018-Present [phone] [place] [address] xxxxxxxxxxx [id number] .[id number] 2018 Medicare [id number] 2018 Medicare MEDICARE MEDICAR E A AND B [id number] 2018-Present [address] [place] [address] [id number] .[id number] 2018 Medicare [id number] 1.13.172.2.7.3 .[id number] 1971 Unknown [id number] 2.16.840.1.590356.3.579.2.173 1971 Unknown [id number] 2.16.840.1.339544.3.579.2.173 1971 Unknown [id number] 2.16.840.1.763122.3.579.2.173 1971 Unknown [id number] 2.16.840.1.083320.3.579.2.173 1971 Unknown [id number] 2.16.840.1.882195.3.579.2.173 1971 Unknown [id number] 2.16.840.1.313465.3.579.2.173 1971 Unknown [id number] 2.16.840.1.062997.3.579.2.173 1971 Unknown [id number] 2.16.840.1.745976.3.579.2.173 1971 Unknown [id number] 2.16.840.1.856509.3.579.2.647 1971 Unknown [id number] 2.16.840.1.227881.3.579.2.593 1971 Unknown [id number] 2.16.840.1.483138.3.579.2.593 1971 Unknown [id number] 2.16.840.1.191672.3.579.2.593 1971 Unknown [id number] 2.16.840.1.110352.3.579.2.593 1971 Unknown [id number] 2.16.840.1.757178.3.579.2.593 1971 Unknown [id number] 2.16.840.1.838927.3.579.2.593 1971 Unknown [id number] 2.16.840.1.442039.3.579.2.593 1971 Unknown [id number] 2.16.840.1.390083.3.579.2.593 1971 Unknown [id number] 2.16.840.1.387170.3.579.2.593 1971 Unknown [id number] 2.16.840.1.550982.3.579.2.593 1971 Unknown [id number] 2.16.840.1.568704.3.579.2.593 1971 Unknown [id number] 2.16.840.1.856069.3.579.2.593 1971 Unknown [id number] 2.16.840.1.853366.3.579.2.593 1971 Unknown [id number] 2.16.840.1.783246.3.579.2.593 1971 Unknown [id number] 2.16.840.1.087812.3.579.2.593 1971 Unknown [id number] 2.16.840.1.671578.3.579.2.125 9 1971 Unknown [id number] 2.16.840.1.347705.3.579.2.125 9 1971 Unknown [id number] 2.16.840.1.085649.3.579.2.594 1971 Unknown [id number] 2.16.840.1.748005.3.579.2.594 1971 Unknown [id number] 2.16.840.1.410785.3.579.2.594 1971 Unknown [id number] 2.16.840.1.941536.3.579.2.594 1971 Unknown [id number] 2.16.840.1.587683.3.579.2.594 1971 Unknown [id number] 2.16.840.1.086196.3.579.2.594 1971 Unknown [id number] 2.16.840.1.248686.3.579.2.594 1971 Unknown [id number] 2.16.840.1.307612.3.579.2.594 1971 Unknown [id number] 2.16.840.1.221395.3.579.2.594 1958 Medicaid [id number] 1958 Medicare [id number] Social History Date Type Detail Facility Start: 07-19-2018 End: 10-19-2018 Tobacco smoking status CTIS Former smoker [facility] Start: 07-19-1988 End: 05-14-2018 History of tobacco use Current smoker [facility] Work Phone: Start: 07-19-1988 End: 05-14-2018 History of tobacco use Cigarette Smoker [facility] Work Phone: Start: 10-19-2018 End: 09-26-2023 Cigarettes smoked current (pack per day) - Reported [facility] End: 07-19-1994 History of tobacco use Chews Tobacco [facility] Work Phone: Start: 1970 Sex Assigned At Not on file [facility] Work Phone: Start: 11-03-2018 Alcohol intake Current non-drinker of alcohol (finding) [place] Start: 06-22-2018 Alcohol Comment Hx of alcoholism [place] Start: 11-03-2018 End: 10-28-2023 Alcohol intake No [facility] Start: 07-19-2018 Tobacco use and exposure Former user [facility] Start: 09-06-2020 End: 09-26-2023 Alcohol intake Ex-drinker (finding) [facility] Start: 07-19-2018 Alcohol Comment stopped 05/14/2018 [facility] Start: 05-05-2022 End: 01-16-2023 Exposure to SARS-CoV-2 (event) Not sure [facility] Start: 07-07-2018 Gender identity Identifies as male gender (finding) [facility] Start: 01-16-2022 Sexual orientation Heterosexual (finding) [facility] Start: 11-03-2023 Tobacco use and exposure [...] Dates [id number] Start: 05-23-2020 [id number] Start: 04-12-2020 [id number], [id number] [facility] Start: 05-17-2022 Comment on above: Description: Implant time-out completed by intra-procedural staff including this RN, kennel technician, and performing physician. The following was completed. RN reads out loud implant type/size/ expiration date, and verbalizes location. Holds package up to tech to visually verify implant details. Tech reads back package details MD verifies verbally correct implant Time-out was completed for each coil during embolization, if applicable. Goals Date Patient Goal Desired Activity /State Personal health goal Clinical Notes 06-14-2021 to 01-23-2024 Nursing Notes - Terra Heart RN - 01/23/2024 3:49 PM ESTNursing Notes - Terra [facility] RN - 01/23/2024 3:49 PM ESTNursing Notes - Terra [facility] RN - 01/23/2024 2:16 PM ESTDischarge Instructions Note Date & Type Note Facility 01-23-2024 Nurse Note Jakob wrap & kerlix removed to LUE per surgical team instructions/note. Incisional site dressing to left inner bicep area remains CDI at this time. Circ checks to LUE are WNL at time of discharge. After-care information reviewed, including daily incisional care starting tomorrow (01/24), monitoring for s/s infection, dressing supplies provided as well for incisional care. IV access removed, dressing CDI at time of discharge. Patient has received all discharge instructions and voices understanding on picking up needed prescriptions at [facility] pharmacy as listed on discharge summary. Patient denies any unanswered questions at this time. Patient has been discharged with all of their belongings, transported via wheelchair on oxygen to front entrance for brother to transport home on home oxygen supply. [facility] 01-23-2024 Miscellaneous Notes Jakob wrap & kerlix removed to LUE per surgical team instructions/note. Incisional site dressing to left inner bicep area remains CDI at this time. Circ checks to LUE are WNL at time of discharge. After-care information reviewed, including daily incisional care starting tomorrow (01/24), monitoring for s/s infection, dressing supplies provided as well for incisional care. IV access removed, dressing CDI at time of discharge. Patient has received all discharge instructions and voices understanding on picking up needed prescriptions at [facility] pharmacy as listed on discharge summary. Patient denies any unanswered questions at this time. Patient has been discharged with all of their belongings, transported via wheelchair on oxygen to front entrance for brother to transport home on home oxygen supply. Home Oxygen Qualification Patient: George Styles The patient is agreeable to the test and reports feeling shortness of breath & weakness without complaints. Patient oxygen saturation at rest on room air is: 92% (2 minutes at rest, add oxygen if saturations go below 89% at rest) Placed on 2L oxygen via nasal cannula on patient at rest, oxygen saturation improved to: 95% Patient Oxygen saturation with exertion on room air is: 85% Placed on 2L oxygen via nasal cannula on patient during exertion. Oxygen saturation improved to: 93% (add oxygen if saturations go below 89%) It is recommended that patient requires 2L of oxygen to maintain oxygen saturations at and above 88% with exertion. (if the patient requires 6L of oxygen or above to maintain oxygen saturations at or above 88%, documentation of the SPO2 when tested at 4L of oxygen is also required.) Patient has had ongoing pain and nausea this shift which improved with prn medications. He was able to get some sleep and continues to use his CPAP when sleeping. He denies numbness in his left hand and is able to move his fingers and pulses are palpable. Patient has call light in reach and bed is in a low and locked position. Problem: Pain, Acute (Adult) Goal: Identify Related Risk Factors and Signs and Symptoms Description: Related risk factors and signs and symptoms are identified upon initiation of Human Response Clinical Practice Guideline (CPG) Outcome: Progressing Flowsheets (Taken 01/23/2024 0653) Related Risk Factors (Acute Pain): surgery Signs and Symptoms (Acute Pain): verbalization of pain descriptors George Styles ([id number]) PRE OPERATIVE DIAGNOSIS High output congestive heart failure [I50.83] POST OPERATIVE DIAGNOSIS Post-Op Diagnosis Codes: * High output congestive heart failure [I50.83] PROCEDURE PERFORMED Procedure(s) (LRB): LIGATION ANGIOACCESS AVF (Left) Resection of large aneurysmic vein PRIMARY CLOSURE Yes INTRAOPERATIVE FINDINGS No significant abnormalities SURGEON Surgeons and Role: * Jyoti Bryant MD, PhD - Primary ANESTHESIOLOGIST Anesthesiologist: Celena Tiwari MD; Kehinde Gutierrez MD FIELD HAULER: Raheem Jasso APRN-FIELD HAULER Crystallography Teacher Assisting: Mini Khan MD SURGICAL STAFF Salesperson Hearing Aids: Zoila Alexander RN Relief Salesperson Hearing Aids: Marimar Saravia RN Relief Scrub: Briseyda Self Scrub Person: Cinda Mai RN Resident Assisting: Leonel Harris DO Fellow: Miki Mcgowan MD, MBBS COMPLICATIONS None ESTIMATED BLOOD LOSS Minimal SPECIMENS No specimen sent * No specimens in log * Jyoti Bryant MD, PhD January 22, 2024 1:34 PM Arrived to PACU assisted by anesthesiology. Connected to monitors. Turned side to side, OR linens removed, repositioned. Airway patent, patient breathing easily. Report received from manager surgical and report received from anesthesiology. Pt arrived awake. VSS. Sats slightly low. Pulm rehab used. Sats currently 3lpm @ 93%. Pt states he uses CPAP nocturnally. A&Ox4. Nerve block left arm, elevated. Operative Report DATE PERFORMED: 01/22/2024 PREOPERATIVE DIAGNOSIS: Large left upper arm arteriovenous fistula status post basilic vein transposition status post successful kidney transplantation. POSTOPERATIVE DIAGNOSIS: Large left upper arm arteriovenous fistula status post basilic vein transposition status post successful kidney transplantation. PROCEDURE: 1. Ligation of left upper arm arteriovenous fistula. 2. Resection of almost 2 inches of large aneurysmal vein. ANESTHESIA: Axillary block. SURGEON(S): Jyoti Bryant MD, PHD MACHINE DYER: Mynor Fall MD ESTIMATED BLOOD LOSS: Minimal. COMPLICATIONS: None. DRAINS: None. DISPOSITION: Recovery room in stable condition. MEDICAL NECESSITY: Mr. Styles is a 53-year-old male with end-stage renal disease status post successful kidney transplantation. In fact, his kidney is working very well. He had a left upper arm basilic vein transposition which is very large and aneurysmal dilatation of the vein. He underwent cardiac workup which revealed a very high cardiac output, therefore, Nephrology consult for ligation of the fistula. I met the patient and I explained to him all risks of the procedure. Formal consent was obtained. DESCRIPTION OF PROCEDURE: The patient was taken to the operating room, placed supine on the operating table. A left axillary block was administered successfully. Left upper extremity was prepared and draped in the usual sterile fashion. A small incision was made in the medial aspect of his left upper arm in the scar of his previous incision. Dissection was carried down. The large fistula was identified. The vein is very large, almost 1 inch in diameter. We carefully dissected the vein until we were able to put a vessel loop around it for control. Then we started dissecting distally toward the arteriovenous anastomosis until we were close to the brachial artery. At this time, the fistula was crossclamped there. We checked the pulse at the wrist, and there was good palpable pulse in the radial artery. Therefore, the fistula was transected and the stump of the fistula was suture ligated using running 4-0 Prolene. At this time, the clamp was removed, and no bleeding was noted. We started dissecting the fistula itself to resect the aneurysmal part for almost 2 inches. This was done. After that the remainder of the vein was suture-ligated. Hemostasis was adequate. Count was correct x2. Incision was closed in 2 layers. Dressing was placed. The patient tolerated the procedure well, transferred to the recovery room in stable condition. I was present for the entire procedure. Dictated By: Jyoti Bryant MD, PHD Jyoti Bryant MD, PHD ATTENDING SHANNON/Constanza JOB: [id number] DOC: [id number] Patient has been asleep this shift. He continues to deny pain and has been NPO since midnight in preparation of this ligation today. He has his call light in reach and his bed remains low and locked. Problem: Patient Care Overview Goal: Plan of Care Review Outcome: Progressing Flowsheets Taken 01/22/2024 0655 Progress: improving Taken 01/21/2024 1940 Plan Of Care Reviewed With: patient 01/19/24 0900 Vitals ICU/PCU Pulse (Heart Rate) 55 Oxygen Therapy O2 Sat (%) 97 % (SpO2 probe changed and now with good wave form, 96-99% on 2L/NC) O2 Device nasal cannula Flow (L/min) 2 SpO2 noted to have poor waveform. Probe changed and skin prep applied prior to applying probe. Three star wave form showing 100% 4L/NC. Pt decreased to 2L/NC and remains 97-99% at rest, 95-96% when talking/moving. Paulette Cordon RN Paged overnight coverage, Jasper Gastelum MD, via pager #[phone] Pt- George Styles. Sarah [phone]. TM1. Was wondering if he can have his Melatonin order increased to 6mg. Per pt, he usually takes 8mg at home. -SAMI Duffy #[phone] Tati Charles RN Internal Medicine Daily Progress Note Patient: George Styles, 1970, [id number] Physician: Arelis Mera MD, PGY3, Pager #[phone], TM1 service Assessment/Plan: George Styles is a 53 y.o. 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 Acute Hypoxic Respiratory Insufficiency GARCIA, Bilateral JENSEN, R Pleural Effusion c/f Acute Heart Failure Patient previously required 3-4L NC only during sleep last admission and now wears CPAP qhs. Was not on home oxygen during the day. Reports 1w GARCIA, 1 month progressive JENSEN and abd distension. Differential includes fluid overload secondary to portal hypertension in the setting liver transplant vs new onset heart failure. Low suspicion for PE. Less likely repeat of prior histo infection given patient has been on itraconazole at home, denies fevers night sweats weight loss. CXR ordered, TTE pending EKG without evidence of ischemia and no active chest pain, if TTE showing RWMA consider ischemic evaluation Given more suspicion for progressive volume overload as etiology, discontinue CTPE and JENSEN duplex IV lasix for goal net neg 1L Holding off on antibiotics given no systemic signs of infection Titrate oxygen as needed to maintain saturations >92% Pulmonary toilet Subacute Isolated Hyperbilirubinemia Noted to have elevated Tbili without transaminitis since October (Tbili 2.5), wnl previously in August. 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 Was due to have a repeat CT chest that looks like was never completed. 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 CMV serum PCR negative, BK serum negative, EBV negative previously. Denies any alcohol use, reports compliance with all IS meds. Current immunosuppression: tacrolimus 0.2 mg every Thursday, , Thursday and mycophenolate 360mg BID Tac trough pending Not on Bactrim per patient, however supposed to be on ppx - will resume MWF ppx Chronic Tremor - High freq, low amp, not appearing to be asterixis likely essential. Monitor Essential Hypertension- continue home amlodipine 5mg CAD: non-obstructive CAD on 2018. - continue home aspirin 81mg daily, statin to be resumed following itraconazole completion Gout: continue home allopurinol 200mg daily BPH: continue home flomax 0.4mg daily Complexity. Hypocalcemia - Continue to monitor and replete. Obesity Body mass index is 32.8 kg/m . - Follow with PCP for dietary and lifestyle modifications. DVT prophylaxis with lovenox Diet DIET LIVER - VERY LOW SODIUM Disposition: home pending clinical improvement and evaluation Code status is Full Code Discussed with team and attending, Dr Kevin Sage MD, on rounds. Signed, Arelis Mera MD Mr. Styles was admitted to [address] [place] [address]. On admission to 0, from outside facility a dual RN initial assessment of skin condition was performed by Izzy Gutierrez RN and Leroy Singleton RN. 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 documented in this encounter [facility] 01-23-2024 Nurse Note Home Oxygen Qualification Patient: George Styles The patient is agreeable to the test and reports feeling shortness of breath & weakness without complaints. Patient oxygen saturation at rest on room air is: 92% (2 minutes at rest, add oxygen if saturations go below 89% at rest) Placed on 2L oxygen via nasal cannula on patient at rest, oxygen saturation improved to: 95% Patient Oxygen saturation with exertion on room air is: 85% Placed on 2L oxygen via nasal cannula on patient during exertion. Oxygen saturation improved to: 93% (add oxygen if saturations go below 89%) It is recommended that patient requires 2L of oxygen to maintain oxygen saturations at and above 88% with exertion. (if the patient requires 6L of oxygen or above to maintain oxygen saturations at or above 88%, documentation of the SPO2 when tested at 4L of oxygen is also required.) [facility] 01-23-2024 History of Present illness Narrative BRIEF TRANSPLANT SURGERY PROGRESS UPDATE: As noted in post op check yesterday he is okay for discharge from a post op standpoint. Arm wrap can come down today, incisional dressing should stay in place at least 1 more day. Patient aware that he can follow up with the surgery clinic as needed. Leonel Harris DO PGY-3 Surgery Resident Patient seen and examined at bedside today during multidisciplinary rounds with medicine residents and pharmacy, charts reviewed, laboratory parameters reviewed. Agree with plan of care as mentioned in resident note. Renal graft function: stable Immunosuppression: TAC+MMF, TAC trough goal 5-7 Congestive heart failure due to high flow AV fistula: Status post right heart cath and AV fistula ligation Decision is based on current list of medicine Allopurinol 200 mg Oral Daily [Held by provider] amLODIPine 5 mg Oral Daily [Held by provider] aspirin 81 mg Oral Daily enoxaparin 40 mg Subcutaneous Q24H faMOTIdine 20 mg Oral BID Gabapentin 400 mg Oral QHS Itraconazole 100 mg Oral Q12H Mycophenolate sodium 360 mg Oral bid Sulfamethoxazole-trimethoprim 1 tablet Oral Once per day on Thursday tacrolimus 0.2 mg Oral Once per day on Thursday Tamsulosin HCl 0.4 mg Oral Daily Torsemide 20 mg Oral Daily Kelvin Pacheco MD, MBBS professor of english Transplant nephrology Surgery Post-Op Check Note George Styles is a 53 y.o. yr old male, who is now POD#0 s/p Procedure(s) (LRB): LIGATION ANGIOACCESS AVF (Left). There were no complications to the procedure, and the patient tolerated it well. Arrived to the floor in stable condition. Subjective: Patient resting comfortably in bed. Patient participatory in clinical exam. Nausea is currently controlled with prn medications. Pain is controlled on current regimen with no complaints. Patient is breathing comfortably on 2L NC oxygen and denied any SOB or chest pain. Objective: BP 148/68 (BP Location: Right arm, BP Position: Sitting) Pulse 50 Temp 97.5 F (36.4 C) (Oral) Resp 21 Ht 1.702 m (5' 7 ) Wt 90.9 kg (200 lb 6.4 oz) SpO2 90% BMI 31.39 kg/m Smoking Status Former Exam: GEN: NAD, laying comfortably in bed CV: RRR, HDS Pulm: No respiratory distress Abd: Soft, appropriately tender, mildly-distended. Ext: No LE swelling/edema, distal pulses 2+ L radial, wrap in place Neuro: No focal deficits Assessment: 53 y.o. yr old male now POD 0 s/p Procedure(s) (LRB): LIGATION ANGIOACCESS AVF (Left). Currently stable on the floor. Plan: - DIET HEART HEALTHY - 4 GM SODIUM - Pain control: multimodal - Okay for DC when deemed appropriate by medical team - Patient advised to call with any concerns - Will continue to monitor Leonel Harris DO General Surgery Pager [phone] CM went to bedside to talk with patient. Patient states he has home oxygen through [employer]. He uses 2.5 LNC around the clock. Patient states his brother will bring a tank for discharge. Anticipate patient will discharge tomorrow AM. Brother updated. Girish Oro RN, BSN Clinical Jump Roll Operator Please note that I am a float pillowcase cutter and may not cover the same service every day. Please call the main Case Management office at [phone] for up-to-date coverage. Verified patients identity using date of . Appropriate PPE utilized. TRANSPLANT SURGERY IMMUNOSUPPRESSION/ PROGRESS NOTE: Date of Service: 01/22/2024 Admit Date: 01/16/2024 Date of last transplant: 04/13/20 OR today for: LIGATION OF ANGIOACCESS AV FISTULA (LEFT) SUBJECTIVE: Seen and examined at bedside. No acute events overnight. Remains NPO for planned procedure today. OBJECTIVE: BP 137/67 (BP Location: Right arm, BP Position: Lying) Pulse 54 Temp 97.5 F (36.4 C) (Oral) Resp 14 Ht 1.702 m (5' 7 ) Wt 90.9 kg (200 lb 6.4 oz) SpO2 99% BMI 31.39 kg/m Smoking Status Former Intake/Output Summary (Last 24 hours) at 01/22/2024 0656 Last data filed at 01/22/2024 0535 Gross per 24 hour Intake 1257.76 ml Output 1800 ml Net -542.24 ml Physical Exam: General: No acute distress Neuro: alert and oriented x 3 Cardiovascular: regular rate and rhythm, no murmurs, rubs, gallops Pulmonary: CTAB Abdomen: soft, mildly distended, incision-clean, dry, intact with amber Extremities: warm and well perfused, 2+dp/pt pulses. LUE AVF with noted venous dilation Skin: no lesions PMH/PSH/ROS: Refer to H&P Medications: Refer to MAR Labs: Lab Results Component Value Date WBC 3.74 01/22/2024 HGB 13.3 (L) 01/22/2024 HCT 41.5 01/22/2024 PLATELET 186 01/22/2024 MCV 86.8 01/22/2024 Lab Results Component Value Date SODIUM 141 01/21/2024 POTASSIUM 3.9 01/21/2024 CHLORIDE 107 01/21/2024 CO2 26 01/21/2024 BUN 15 01/21/2024 CREATSERUM 1.11 01/21/2024 GLUCOSE 93 01/21/2024 Lab Results Component Value Date ALT 12 01/20/2024 AST 19 01/20/2024 GGT 16 01/08/2024 ALKPHOS 73 01/20/2024 BILITOTAL 2.1 (H) 01/20/2024 BILIDIRECT 0.5 (H) 01/20/2024 Lab Results Component Value Date TACROLIMUS 7.2 01/21/2024 TACROLIMUS 7.7 01/20/2024 TACROLIMUS 6.8 01/19/2024 ] ASSESSMENT/PLAN Plan today for: OR today for: LIGATION OF ANGIOACCESS AV FISTULA (LEFT) - NPO - Consent in chart - Risks/benefits/alternatives discussed with patient at length, all questions answered to his satisfaction Leonel Harris DO Associated attestation - Jyoti Bryant MD, PhD - 01/22/2024 10:54 AM EST I. Jyoti Bryant MD, PhD, have independently seen and examined the patient, reviewed the labs, discussed the patient with the fellow/resident and agree with the note. Images from the original note were not included. Internal Medicine Daily Progress Note Patient: George Styles, 1970, [id number] Physician: Yury Ozuna MD, PGY1, Pager #[phone], TM1 service Assessment/Plan: George Styles is a 53 y.o. 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 Acute Hypoxic Respiratory Insufficiency - resolved High Output Cardiac Failure 2/ Fistula Patient previously required 3-4L NC only during sleep last admission and now wears CPAP qhs. Was not on home oxygen during the day. Reports 1w GARCIA, 1 month progressive JENSEN and abd distension. Differential includes fluid overload secondary to portal hypertension in the setting liver transplant vs new onset heart failure. Low suspicion for PE. Less likely repeat of prior histo infection given patient has been on itraconazole at home, denies fevers night sweats weight loss. CXR: moderate right pleural effusion TTE (01/18): EF 55-60%, concentric hypertrophy, no wall motion abnormalities. Normal RV size, low-normal RV systolic function. No valvular disease. Moderate pericardial effusion. EKG without evidence of ischemia and no active chest pain Pulmonary toilet Duplex US LUE AVF complete (results below in data review) Discontinued IV diuresis 01/20, transitioned to torsemide 20 mg BID S/p right heart cath 01/20 (results below in data review) Planned for fistula ligation by transplant surgery on 01/22 (NPO at mo, updated type & screen) S/p Liver-Kidney Transplant 03/2020 Baseline creatinine appears to be 1.1-1.4, though variable. CMV serum PCR negative, BK serum negative, EBV negative previously. Denies any alcohol use, reports compliance with all IS meds. 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 Was due to have a repeat CT chest that looks like was never completed. 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 Liver doppler demonstrating nodularity and hyperechoic foci AFP <2.2 CT AP (01/17): new mild to moderate pericardial effusion, moderate to large right pleural effusion with complete atelectasis of visualized RLL and most of RML. Trace left pleural effusion Continue trending daily LFTs Chronic Tremor - High freq, low amp, not appearing to be asterixis likely essential. Monitor Essential Hypertension- holding home amlodipine 5mg CAD: non-obstructive CAD on 2018. - continue home aspirin 81mg daily, statin to be resumed following itraconazole completion Gout: continue home allopurinol 200mg daily BPH: continue home flomax 0.4mg daily Complexity. Hypomagnesemia - continue to monitor and replete prn Hypocalcemia - Continue to monitor and replete. Obesity Body mass index is 32.8 kg/m . - Follow with PCP for dietary and lifestyle modifications. The patient has Malnutrition Severity: none. I reviewed and agreed with the Nutrition plan outlined in the Sonographer s note. DVT prophylaxis with lovenox Diet DIET HEART HEALTHY - 4 GM SODIUM Disposition: home pending clinical improvement and evaluation Code status is Full Code Discussed with team and attending, Kelvin Pacheco MD, LU , on rounds. Signed, Yury Ozuna MD PGY-1 Subjective/Interval History: No acute events overnight. Breathing remains improved this morning, no shortness of breath or respiratory distress on room air. Nausea remains improved, tolerating PO. Planned for fistula takedown 01/22, followed by discharge home. Objective: Vitals: 01/21/24 1038 BP: 118/58 Pulse: 54 Resp: 12 Temp: 96.9 F (36.1 C) SpO2: 94% O2 Device: room air (01/21/24 1038) Flow (L/min): 2 (01/19/24 0900) Gen: NAD HENT: NCAT, EOMI, MMM Cardio: RRR, normal S1/S2, no murmur. Trace pitting edema in LE. Resp: CTAB, no wheezing. No increased work of breathing GI: soft, mildly distended, NT, normal BS MSK: no joint swelling or erythema Ext: warm and well-perfused Neuro: awake, alert, moving all four extremities Data Review: WBC/Hgb/Hct/Plts: 3.42/12.7/39.4/157 (01/21 633) Na/K+/Phos/Mg/Ca: 141/3.9/--/1.5/-- (01/21 633) Bun/Creat/Cl/CO2/Glucose: 15/1.11/107/26/93 (01/21 633) Doppler US LUE AVF: Associated attestation - Sarah, Kelvin Ortiz MD, MBBS - 01/21/2024 4:20 PM EST Patient seen and examined at bedside today during multidisciplinary rounds with medicine residents and pharmacy, charts reviewed, laboratory parameters reviewed. Agree with plan of care as mentioned in resident note. Kelvin Pacheco MD, MBBS professor of english Transplant nephrology Patient seen and examined at bedside today during multidisciplinary rounds with medicine residents and pharmacy, charts reviewed, laboratory parameters reviewed. Agree with plan of care as mentioned in resident note. Renal graft function: stable Immunosuppression: TAC+MMF, TAC trough goal 5-7 CHF- s/p RHC today, has high wedge pressure and high flow AVF, continue diuresis and will need AVF takedown Decision is based on current list of medicine Allopurinol 200 mg Oral Daily [Held by provider] amLODIPine 5 mg Oral Daily aspirin 81 mg Oral Daily enoxaparin 40 mg Subcutaneous Q24H faMOTIdine 20 mg Oral BID Gabapentin 400 mg Oral QHS Itraconazole 100 mg Oral Q12H Mycophenolate sodium 360 mg Oral bid Sulfamethoxazole-trimethoprim 1 tablet Oral Once per day on Thursday tacrolimus 0.2 mg Oral Once per day on Thursday Tamsulosin HCl 0.4 mg Oral Daily Torsemide 20 mg Oral BID AC Kelvin Pacheco MD, MBBS professor of english Transplant nephrology Images from the original note were not included. Internal Medicine Daily Progress Note Patient: George Styles, 1970, [id number] Physician: Yury Ozuna MD, PGY1, Pager #[phone], ZL1 service Assessment/Plan: George Styles is a 53 y.o. 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 Acute Hypoxic Respiratory Insufficiency - resolved GARCIA, Bilateral JENSEN, R Pleural Effusion c/f Acute Heart Failure Patient previously required 3-4L NC only during sleep last admission and now wears CPAP qhs. Was not on home oxygen during the day. Reports 1w GARCIA, 1 month progressive JENSEN and abd distension. Differential includes fluid overload secondary to portal hypertension in the setting liver transplant vs new onset heart failure. Low suspicion for PE. Less likely repeat of prior histo infection given patient has been on itraconazole at home, denies fevers night sweats weight loss. CXR: moderate right pleural effusion TTE (01/18): EF 55-60%, concentric hypertrophy, no wall motion abnormalities. Normal RV size, low-normal RV systolic function. No valvular disease. Moderate pericardial effusion. EKG without evidence of ischemia and no active chest pain Titrate oxygen as needed to maintain saturations >92% Pulmonary toilet Duplex US LUE AVF complete (results below in data review) Discontinued IV diuresis 01/20, transitioned to torsemide 20 mg BID S/p right heart cath 01/20 (results below in data review) Transplant surgery consulted to evaluate for fistulectomy S/p Liver-Kidney Transplant 03/2020 Baseline creatinine appears to be 1.1-1.4, though variable. CMV serum PCR negative, BK serum negative, EBV negative previously. Denies any alcohol use, reports compliance with all IS meds. 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 Was due to have a repeat CT chest that looks like was never completed. Continuing itraconazole 100 mg BID, per last ID televisit (08/2023) aiming for at least 1 year of treatment (manage as disseminated given the retroperitoneal LAD likely 2/[address]) [address] AP (01/17): interval resolution of abdominal LAD (compared to 08/31/23) Itraconazole level pending Histo ag negative Subacute Isolated Hyperbilirubinemia Noted to have elevated Tbili without transaminitis since October (Tbili 2.5), wnl previously in August. Liver doppler demonstrating nodularity and hyperechoic foci AFP <2.2 CT AP (01/17): new mild to moderate pericardial effusion, moderate to large right pleural effusion with complete atelectasis of visualized RLL and most of RML. Trace left pleural effusion Continue trending daily LFTs Chronic Tremor - High freq, low amp, not appearing to be asterixis likely essential. Monitor Essential Hypertension- holding home amlodipine 5mg CAD: non-obstructive CAD on [facility] 2018. - continue home aspirin 81mg daily, statin to be resumed following itraconazole completion Gout: continue home allopurinol 200mg daily BPH: continue home flomax 0.4mg daily Complexity. Hypomagnesemia - continue to monitor and replete prn Hypocalcemia - Continue to monitor and replete. Obesity Body mass index is 32.8 kg/m . - Follow with PCP for dietary and lifestyle modifications. The patient has Malnutrition Severity: none. I reviewed and agreed with the Nutrition plan outlined in the Sonographer s note. DVT prophylaxis with lovenox Diet DIET HEART HEALTHY - 4 GM SODIUM Disposition: home pending clinical improvement and evaluation Code status is Full Code Discussed with team and attending, Kelvin Pacheco MD, MBBS , on rounds. Signed, Yury Ozuna MD PGY-1 Subjective/Interval History: No acute events overnight. Weaned from supplemental oxygen to room air yesterday. Tolerated well, reports breathing improved this morning and near baseline. Denies fever, chills, n/v, chest pain, sob, abdominal pain. No new concerns this morning. Objective: Vitals: 01/20/24 0806 BP: 140/66 Pulse: 54 Resp: 14 Temp: 97.6 F (36.4 C) SpO2: 94% O2 Device: room air (01/20/24 0806) Flow (L/min): 2 (01/19/24 0900) Gen: NAD HENT: NCAT, EOMI, MMM Cardio: RRR, normal S1/S2, no murmur. Trace pitting edema in LE. Resp: CTAB, no wheezing. No increased work of breathing GI: soft, mildly distended, NT, normal BS MSK: no joint swelling or erythema Ext: warm and well-perfused Neuro: awake, alert, moving all four extremities Data Review: WBC/Hgb/Hct/Plts: 3.79/12.5/38.9/166 (01/20 611) Na/K+/Phos/Mg/Ca: 141/3.8/--/1.6/-- (01/20 611) Bun/Creat/Cl/CO2/Glucose: 15/1.12/105/28/88 (01/20 611) Ptt/Pt/Inr: 30.6/15.5/1.2 (01/20 611) Doppler AMIE LESLEYF: Associated attestation - Kelvin Pacheco MD, MBBS - 01/21/2024 1:50 PM EST Please see my note from today for additional detail Summary: Pharmacy Med Rec Department of Pharmacy Admission Medication Reconciliation Note Patient: George Styles Room/Bed: 1082/A The patient's allergies have been reviewed with Patient. I also have reviewed the patient's home medication list with the following sources Patient recall with prompting, Dispense Report, OARRs, and [facility] Review. I have also reviewed this list with the pharmacist. I am recommending the following changes to the home medication list. These recommendations are considered preliminary until attestation of this note by a pharmacist. Deleted from Home Medications: sulfamethoxazole-trimethoprim 800-160 mg. OARRs Report: Has been reviewed. gabapentin 400 mg Filled: 12/25/23 Amount: # 90 Day Supply: 90 Refills: 0 Provider: Zuly Bruno NP Pharmacy: [place] Other Comments: Patient reported his Last Home Dose of mycophenolate and tacrolimus was on 01/15/24 at 0700. Medications that need removed from Outside Medication Reconciliation list: Please remove all medications. Please feel free to contact me with any further questions. Name: Heidy Chatman Phone #: [phone] Date/Time: 01/19/2024 12:08 PM Time Spent: 15 minutes Associated attestation - Melania Alarcon RPH - 01/19/2024 12:41 PM EST Department of Pharmacy Admission Medication Reconciliation Note Patient: George Styles Room/Bed: 1082/A I have reviewed the home medication list with the Intrusion Analyst. The home medication list status is: complete. All changes to the home medication list have been updated in IHIS. Updated X RAY TECHNOLOGIST Med List: Prior to Admission Medications Prescriptions Allopurinol 100 MG tablet Sig: Take 2 tablets by mouth daily. Gabapentin 400 MG capsule Sig: Take 1 capsule by mouth at bedtime. Itraconazole 10 MG/ML Solution Sig: Take 10 mL by mouth every 12 hours. Mycophenolate sodium (MYFORTIC) [address] tablet DR Sig: Take 1 tablet by mouth every 12 hours. Tacrolimus 0.2 MG Pack Sig: Mix 1 packet (0.2 mg) and take by mouth every Thursday, , Thursday. Tamsulosin HCl 0.4 MG capsule Sig: Take 1 capsule by mouth daily. amLODIPine 5 MG tablet Sig: Take 1 tablet by mouth daily. aspirin 81 MG Chew Tab chewable tablet Sig: Chew 1 tablet daily. Last refill from our office. Medication can be purchased over the counter going forward. faMOTIdine 20 MG tablet Sig: Take 1 tablet by mouth 2 times daily. magnesium oxide 400 (240 Mg) MG Sig: Take 2 tablets by mouth daily. melatonin 3 MG tablet Sig: Take 1 tablet by mouth at bedtime as needed for Insomnia. ondansetron 4 MG tablet Sig: Take 1 tablet by mouth every 8 hours as needed for Nausea / Vomiting. polyethylene glycol 17 g Pack packet Sig: Take 1 packet by mouth daily. Facility-Administered Medications: None Please feel free to contact me with any further questions. Name: Melania Alarcon [facility] Phone #: [phone] Date/Time: 01/19/2024 12:41 PM Internal Medicine Daily Progress Note Patient: George Styles, 1970, [id number] Physician: Yury Ozuna MD, PGY1, Pager #[phone], WR9 service Assessment/Plan: Acute Hypoxic Respiratory Insufficiency GARCIA, Bilateral JENSEN, R Pleural Effusion c/f Acute Heart Failure Patient previously required 3-4L NC only during sleep last admission and now wears CPAP qhs. Was not on home oxygen during the day. Reports 1w GARCIA, 1 month progressive JENSEN and abd distension. Differential includes fluid overload secondary to portal hypertension in the setting liver transplant vs new onset heart failure. Low suspicion for PE. Less likely repeat of prior histo infection given patient has been on itraconazole at home, denies fevers night sweats weight loss. CXR: moderate right pleural effusion TTE (01/18): EF 55-60%, concentric hypertrophy, no wall motion abnormalities. Normal RV size, low-normal RV systolic function. No valvular disease. Moderate pericardial effusion. EKG without evidence of ischemia and no active chest pain Titrate oxygen as needed to maintain saturations >92% Pulmonary toilet Duplex US LUE AVF ordered to evaluate fistula as etiology/contributor to new heart failure Continue diuresis with IV lasix BID, goal net negative 1-1.5L S/p Liver-Kidney Transplant 03/2020 Baseline creatinine appears to be 1.1-1.4, though variable. CMV serum PCR negative, BK serum negative, EBV negative previously. Denies any alcohol use, reports compliance with all IS meds. 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 Was due to have a repeat CT chest that looks like was never completed. Continuing itraconazole 100 mg BID, per last ID televisit (08/2023) aiming for at least 1 year of treatment (manage as disseminated given the retroperitoneal LAD likely 2/2 [address]) CT AP (01/17): interval resolution of abdominal LAD (compared to 08/31/23) Itraconazole level pending Histo ag pending Subacute Isolated Hyperbilirubinemia Noted to have elevated Tbili without transaminitis since October (Tbili 2.5), wnl previously in August. Liver doppler demonstrating nodularity and hyperechoic foci AFP <2.2 CT AP (01/17): new mild to moderate pericardial effusion, moderate to large right pleural effusion with complete atelectasis of visualized RLL and most of RML. Trace left pleural effusion Continue trending daily LFTs Chronic Tremor - High freq, low amp, not appearing to be asterixis likely essential. Monitor Essential Hypertension- holding home amlodipine 5mg CAD: non-obstructive CAD on [facility] 2018. - continue home aspirin 81mg daily, statin to be resumed following itraconazole completion Gout: continue home allopurinol 200mg daily BPH: continue home flomax 0.4mg daily Complexity. Hypomagnesemia - continue to monitor and replete prn Hypocalcemia - Continue to monitor and replete. Obesity Body mass index is 32.8 kg/m . - Follow with PCP for dietary and lifestyle modifications. The patient has Malnutrition Severity: none. I reviewed and agreed with the Nutrition plan outlined in the Sonographer s note. DVT prophylaxis with lovenox Diet DIET HEART HEALTHY - 4 GM SODIUM Disposition: home pending clinical improvement and evaluation Code status is Full Code Discussed with team and attending, Kelvin Pacheco MD, MBBS , on rounds. Signed, Yury Ozuna MD PGY-1 Subjective/Interval History: No acute events overnight. Reports breathing improved with continued diuresis. Able to tolerate eating breakfast off of supplemental oxygen and maintained O2 sats >90 without supplemental oxygen for 5-10 minutes this morning. No new concerns. Plan to continue diuresis today, obtain fistula duplex US. Objective: Vitals: 01/19/2400 BP: Pulse: 55 Resp: Temp: SpO2: 97% O2 Device: nasal cannula (01/19/24899) Flow (L/min): 2 (01/19/24899) Gen: NAD HENT: NCAT, EOMI, MMM Cardio: RRR, normal S1/S2, no murmur. Trace pitting edema b/l Resp: Slight crackles in b/l lung bases. No wheezing. No significant increased work of breathing GI: soft, mildly distended, NT, normal BS MSK: no joint swelling or erythema Ext: warm and well-perfused Neuro: awake, alert, moving all four extremities Data Review: WBC/Hgb/Hct/Plts: 3.69/12.1/37.5/163 (01/19 616) Na/K+/Phos/Mg/Ca: 140/3.8/--/1.8/-- (01/19 616) Bun/Creat/Cl/CO2/Glucose: 16/1.13/106/24/86 (01/19 0616) Associated attestation - Kelvin Pacheco MD, LU - 01/19/2024 12:31 PM EST Patient seen and examined at bedside today during multidisciplinary rounds with medicine residents and pharmacy, charts reviewed, laboratory parameters reviewed. Agree with plan of care as mentioned in resident note. Renal graft function: stable Immunosuppression: per liver transplant team CHF- continue diuresis, pending AVF flow assessment, he might have RV dysfunction due to long standing AVF +/- DARLENE, if flow via AVF is high- will need RHC. Decision is based on current list of medicine Allopurinol 200 mg Oral Daily [Held by provider] amLODIPine 5 mg Oral Daily aspirin 81 mg Oral Daily enoxaparin 40 mg Subcutaneous Q24H faMOTIdine 20 mg Oral BID furosemide 40 mg Intravenous BID AC Gabapentin 400 mg Oral QHS Itraconazole 100 mg Oral Q12H Mycophenolate sodium 360 mg Oral bid Sulfamethoxazole-trimethoprim 1 tablet Oral Once per day on Thursday tacrolimus 0.2 mg Oral Once per day on Thursday Tamsulosin HCl 0.4 mg Oral Daily Kelvin Pacheco MD, MBBS professor of english Transplant nephrology Internal Medicine Daily Progress Note Patient: George Styles, 1970, [id number] Physician: Yury Ozuna MD, PGY1, Pager #[phone], TM1 service Assessment/Plan: Updates: - continued diuresis with IV Lasix, goal net negative 1.5L nc - TTE planned for today 01/18 - Hepatobiliary consulted for assistance with immunosuppression regimen - ordered duplex US LUE AVF in evaluation of new heart failure - amlodipine held Acute Hypoxic Respiratory Insufficiency GARCIA, Bilateral JENSEN, R Pleural Effusion c/f Acute Heart Failure Patient previously required 3-4L NC only during sleep last admission and now wears CPAP qhs. Was not on home oxygen during the day. Reports 1w GARCIA, 1 month progressive JENSEN and abd distension. Differential includes fluid overload secondary to portal hypertension in the setting liver transplant vs new onset heart failure. Low suspicion for PE. Less likely repeat of prior histo infection given patient has been on itraconazole at home, denies fevers night sweats weight loss. CXR: moderate right pleural effusion TTE pending EKG without evidence of ischemia and no active chest pain, if TTE showing RWMA consider ischemic evaluation Given more suspicion for progressive volume overload as etiology, discontinue CTPE and JENSEN duplex Holding off on antibiotics given no systemic signs of infection Titrate oxygen as needed to maintain saturations >92% Pulmonary toilet Continue diuresis with IV lasix, goal net negative 1L Duplex US LUE AVF ordered to evaluate fistula as etiology/contributor to new heart failure Subacute Isolated Hyperbilirubinemia Noted to have elevated Tbili without transaminitis since October (Tbili 2.5), wnl previously in August. Liver doppler demonstrating nodularity and hyperechoic foci AFP <2.2 CT AP (01/17): new mild to moderate pericardial effusion, moderate to large right pleural effusion with complete atelectasis of visualized RLL and most of RML. 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 Was due to have a repeat CT chest that looks like was never completed. Continuing itraconazole 100 mg BID, per last ID televisit (08/2023) aiming for at least 1 year of treatment (manage as disseminated given the retroperitoneal LAD likely 2/2 hist[address]) CT AP (01/17): interval resolution of abdominal LAD (compared to 08/31/23) Itraconazole level pending Histo ag pending S/p Liver-Kidney Transplant 03/2020 Baseline creatinine appears to be 1.1-1.4, though variable. CMV serum PCR negative, BK serum negative, EBV negative previously. Denies any alcohol use, reports compliance with all IS meds. Current immunosuppression: tacrolimus 0.2 mg every Thursday, , Thursday and mycophenolate 360mg BID Tac trough pending Not on Bactrim per patient, however supposed to be on ppx - will resume MWF ppx Hepatobiliary consulted for assistance with immunosuppression regimen, appreciate recs Chronic Tremor - High freq, low amp, not appearing to be asterixis likely essential. Monitor Essential Hypertension- holding home amlodipine 5mg CAD: non-obstructive CAD on [facility] 2019. - continue home aspirin 81mg daily, statin to be resumed following itraconazole completion Gout: continue home allopurinol 200mg daily BPH: continue home flomax 0.4mg daily Complexity. Hypomagnesemia - continue to monitor and replete prn Hypocalcemia - Continue to monitor and replete. Obesity Body mass index is 32.8 kg/m . - Follow with PCP for dietary and lifestyle modifications. The patient has Malnutrition Severity: none. I reviewed and agreed with the Nutrition plan outlined in the Sonographer s note. DVT prophylaxis with lovenox Diet DIET HEART HEALTHY - 4 GM SODIUM Disposition: home pending clinical improvement and evaluation Code status is Full Code Discussed with team and attending, Kelvin Pacheco MD, MBBS , on rounds. Signed, Yury Ozuna MD PGY-1 Subjective/Interval History: No acute events overnight. Diuresed yesterday with IV lasix x 2, for 4.4L urine output. Reports breathing slightly improved compared to yesterday, legs less swollen. Continues to have orthopnea, shortness of breath. Nausea feels improved this morning. Denies fever, chills, abdominal pain, diarrhea. Objective: Vitals: 01/18/24 1121 BP: 130/67 Pulse: 52 Resp: 16 Temp: 97.5 F (36.4 C) SpO2: 92% O2 Device: nasal cannula (01/18/24924) Flow (L/min): 4 (01/18/24924) Gen: NAD HENT: NCAT, EOMI, MMM Cardio: RRR, normal S1/S2, no murmur. 1+ pitting edema bilaterally Resp: Diminished breath sounds at the right lung base, crackles in LLL. No wheezing. No significant increased work of breathing GI: soft, mildly distended, NT, normal BS MSK: no joint swelling or erythema Ext: warm and well-perfused Neuro: awake, alert, moving all four extremities Data Review: WBC/Hgb/Hct/Plts: 3.66/12.1/38.4/183 (01/18 315) Na/K+/Phos/Mg/Ca: 141/3.9/--/1.5/-- (01/18 315) Bun/Creat/Cl/CO2/Glucose: 16/1.00/108/26/89 (01/18 315) Ptt/Pt/Inr: 30.0/14.5/1.1 (01/18 315) Associated attestation - Sarah, Kelvin Ortiz MD, MBBS - 01/18/2024 4:20 PM EST Patient seen and examined at bedside today during multidisciplinary rounds with medicine residents and pharmacy, charts reviewed, laboratory parameters reviewed. Agree with plan of care as mentioned in resident note. Kelvin Pacheco MD, LU professor of english Transplant nephrology Pt known to journeyman millwright from previous admissions. Provided emotional and spiritual support. Patient shared about: family support, medical course Molding Associate provided: - Supportive presence - Active listening - Validation of feelings/emotions Patient encouraged to request a journeyman millwright as needed. Chaplains are available in-house 24 hours a day and 7 days a week. For urgent matters in [facility], please page [phone]. If the request is not urgent, please enter a consult. Consults are responded to within 24 hours. Senior Staff Molding Associatewilmer Singh Mdiv, [facility] Kirk [phone] [email or web address] On-call : call worker person Raheem: 22/06 Pager ,[facility], and [place] [phone] Raheem Pager [phone] 01/18/24 1342 Clinical Encounter Type Visited With Patient Visit Type Introduction Pastoral Time Spent 15 min Referral Other (See Comment) (rounding) Spiritual Assessment Emotional Observation Coping well;Anxiety Hope Observation Specific hope focus Support Observation By Family Interventions Provided Active listening;Supportive presence Facilitated Verbalization of feelings;Identifying support system;Identifying Sources of spiritual well-being Explored Expectations;Treatment decisions Basin Cleaner Education Basin Cleaner Service Available Yes Educated Patient Outcomes Patient Outcomes Articulated purpose/meaning Plan of Care Continue Visiting PRN Department of Pharmacy Transplant Note Patient: George Styles Room/Bed: 1082/A Transplant pharmacy is following George Styles during hospital admission and will perform the following activities related to transplant pharmacotherapy: 1. Ensure appropriate management and titration of immunosuppressive, prophylactic, and other supportive care medications; 2. Monitor for any adverse drug effects; 3. Review the patient's medication profile for any potential drug interaction. Name: Melania Alarcon RPH Phone #: [phone] Date/Time: 01/18/2024 9:56 AM Discharge Planning Patient Assessment Admission Assessment Patient Assessment Completed: Initial Anticipated discharge disposition: Home Reason for Admission: sob Is the patient able to participate in the assessment?: Yes Information source: Patient Information Source Name/Contact: George Styles Demographics Verified and Updated: Yes Has the patient been admitted to any hospital in the last 30 days?: No Advanced Care Planning Has the patient completed Advance Directives?: Completed, Not Available in Medical Record (Has completed Living will/ did not want HCPOA) Copy of Advance Directives was requested?: Yes Advance Directives Requested From: patient Legal Next of Kin Does the patient have a Guardian?: No Spouse: No Adult Child(brandon), List All Adult Children: No Adult Sibling(s), List All Adult Siblings: Yes Name and Contact information: Gian Styles ([phone]) Would you like to add additional adult siblings?: No Referral to Social Work to Identify Legal Next of Kin?: No Reviewed and Updated in Demographics? : Yes Outpatient Providers Does patient have a primary care physician? : Yes When was the patient's last PCP visit?: > 30 days Does the patient follow any specialists?: Yes Reviewed and updated Care Team?: Yes Patient Care Team: Zuly Bruno CNP as PCP - General Evan White, DO as Infectious Disease (Infectious Disease) Dr Perrin transplant Dr [place]-Infectious disease Environment/Caregivers Is the patient from a facility or fpc?: No Patient lives with: Alone Living Environment: House How many steps does the patient have to navigate to enter or inside the home? : 4 Does the patient have a first floor set-up with bed and bathroom?: Yes Patient Caregiving Responsibilities: Self Patient-identified caregiver/support network: Family Who does the patient identify as a teachable caregiver(s)?: Sibling(s) USES CPAP Services Does the patient use a home health or hospice agency?: No Current with dialysis?: No Does the patient use any community programs or services?: No Does patient use DME? : none Does the patient use oxygen?: Yes Oxygen Provider and Contact : [employer] Liter-Flow?: Order for oxygen use?: unknown at this time (just starting using again recently) Portable tank?: Yes Who will bring tank for discharge?: unsure if brother can bring (pt hoping won't need as improves) Does patient use medical supplies? : none [...] Is the patient on Anticoagulation? : No [id number] - [place] [address] - [address] [place] [phone] [employer] Does the patient or banking representative express financial concerns? : No Employed?: Disabled Coping/Stress Concerns about patient s coping and stress?: No Concerns about patient s caregiver s coping and stress?: No Values and Beliefs Cultural or zoroastrianism practices that may impact discharge planning and/or medical care?: No Initial Discharge Planning Anticipated discharge disposition: Home Transportation Available for Discharge: Family or Friend Anticipated DME: none Anticipated Services at Discharge: Outpatient follow up Patient Assessment Completed: Initial Expected Discharge Date: 01/21 Discharge Planning Summary 1. Plan at this time is discharge home 2. Patient assessment completed. Case Management Plan 1. Identified self and role as Jump Roll Operator. 2. Confirmed and updated demographics and treatment team. 3. Jump Roll Operator will continue to follow with medical team for any other additional discharge needs. Kasandra DON RN *Please note I am float CM and work Thursday and Thursday every other week. Please call [phone] for assist in my absence. Internal Medicine Daily Progress Note Patient: George Styles, 1970, [id number] Physician: Yury Ozuna MD, PGY1, Pager #[phone], TM1 service Assessment/Plan: Updates: - continue diuresis with IV lasix, goal net negative 1L - CT AP with resolution of abdominal lymphadenopathy, demonstrates mild-mod pericardial effusion, mod-large right pleural effusion with adjacent atelectasis Acute Hypoxic Respiratory Insufficiency GARCIA, Bilateral JENSEN, R Pleural Effusion c/f Acute Heart Failure Patient previously required 3-4L NC only during sleep last admission and now wears CPAP qhs. Was not on home oxygen during the day. Reports 1w GARCIA, 1 month progressive JENSEN and abd distension. Differential includes fluid overload secondary to portal hypertension in the setting liver transplant vs new onset heart failure. Low suspicion for PE. Less likely repeat of prior histo infection given patient has been on itraconazole at home, denies fevers night sweats weight loss. CXR: moderate right pleural effusion TTE pending EKG without evidence of ischemia and no active chest pain, if TTE showing RWMA consider ischemic evaluation Given more suspicion for progressive volume overload as etiology, discontinue CTPE and JENSEN duplex Holding off on antibiotics given no systemic signs of infection Titrate oxygen as needed to maintain saturations >92% Pulmonary toilet Continue diuresis with IV lasix, goal net negative 1L Subacute Isolated Hyperbilirubinemia Noted to have elevated Tbili without transaminitis since October (Tbili 2.5), wnl previously in August. Liver doppler demonstrating nodularity and hyperechoic foci AFP pending CT AP (01/17): new mild to moderate pericardial effusion, moderate to large right pleural effusion with complete atelectasis of visualized RLL and most of RML. 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 Was due to have a repeat CT chest that looks like was never completed. Continuing itraconazole 100 mg BID, per last ID televisit (08/2023) aiming for at least 1 year of treatment (manage as disseminated given the retroperitoneal LAD likely 2/2 histoplasm[address]) CT AP (01/17): interval resolution of abdominal LAD (compared to 08/31/23) Itraconazole level pending Histo ag pending S/p Liver-Kidney Transplant 03/2020 Baseline creatinine appears to be 1.1-1.4, though variable. CMV serum PCR negative, BK serum negative, EBV negative previously. Denies any alcohol use, reports compliance with all IS meds. Current immunosuppression: tacrolimus 0.2 mg every Thursday, , Thursday and mycophenolate 360mg BID Tac trough pending Not on Bactrim per patient, however supposed to be on ppx - will resume MWF ppx Chronic Tremor - High freq, low amp, not appearing to be asterixis likely essential. Monitor Essential Hypertension- continue home amlodipine 5mg CAD: non-obstructive CAD on [facility] 2018. - continue home aspirin 81mg daily, statin to be resumed following itraconazole completion Gout: continue home allopurinol 200mg daily BPH: continue home flomax 0.4mg daily Complexity. Hypocalcemia - Continue to monitor and replete. Obesity Body mass index is 32.8 kg/m . - Follow with PCP for dietary and lifestyle modifications. DVT prophylaxis with lovenox Diet DIET HEART HEALTHY - 4 GM SODIUM Disposition: home pending clinical improvement and evaluation Code status is Full Code Discussed with team and attending, Kevin Sage MD , on rounds. Signed, Yury Ozuna MD PGY-1 Subjective/Interval History: No acute events overnight. Continues to feel short of breath compared to baseline, reports orthopnea overnight and dyspnea on minimal exertion walking to bathroom. Tolerated CPAP well overnight. Denies fever, chills, n/v, abdominal pain, flank pain, diarrhea. Objective: Vitals: 01/17/24 1042 BP: 121/58 Pulse: 60 Resp: 16 Temp: 97.9 F (36.6 C) SpO2: 92% O2 Device: nasal cannula (01/17/24 1042) Flow (L/min): 2 (01/17/24 0833) Gen: NAD, well-appearing, sitting up HENT: NCAT, EOMI, MMM Cardio: RRR, normal S1/S2, no murmur. 1+ pitting edema bilaterally to mid-calf. Resp: Diminished breath sounds at bilateral bases, crackles present bilaterally. GI: soft, mildly distended, NT, normal BS MSK: no joint swelling or erythema Ext: warm and well-perfused Neuro: awake, alert, moving all four extremities Data Review: WBC/Hgb/Hct/Plts: 3.69/12.0/37.2/159 (01/17 312) Na/K+/Phos/Mg/Ca: 139/4.4/--/1.7/-- (01/17 312) Bun/Creat/Cl/CO2/Glucose: 17/1.04/109/21/82 (01/17 312) Ptt/Pt/Inr: 29.9/14.5/1.1 (01/17 312) Attending Physician Addendum I saw and personally examined Mr. Styles with the renal team. I discussed the findings and plan of the case. I agree with the history, physical examination, and medical decisions as outlined above. VS Temp: [90.3 F (32.4 C)-98.9 F (37.2 C)] 98.2 F (36.8 C) Pulse (Heart Rate): [45-64] 53 Resp Rate: [16-18] 16 BP: (114-133)/(58-63) 126/60 O2 Sat (%): [90 %-97 %] 90 % Weight: [97.3 kg (214 lb 9.6 oz)] 97.3 kg (214 lb 9.6 oz) I/O last 3 completed shifts: In: 1210 [P.O.:1210] Out: 1999 [Urine:1999] I/O this shift: In: 540 [P.O.:540] Out: 950 [Urine:950] LABS Lab Results Component Value Date WBC 3.69 (L) 01/17/2024 HGB 12.0 (L) 01/17/2024 PLATELET 159 01/17/2024 Lab Results Component Value Date SODIUM 139 01/17/2024 POTASSIUM 4.4 01/17/2024 CHLORIDE 109 (H) 01/17/2024 CO2 21 01/17/2024 BUN 17 01/17/2024 CREATSERUM 1.04 01/17/2024 GLUCOSE 82 01/17/2024 Lab Results Component Value Date CALCIUM 8.5 (L) 01/16/2024 PHOSPHORUS 4.1 01/16/2024 Lab Results Component Value Date CREATSERUM 1.04 01/17/2024 CREATSERUM 1.04 01/16/2024 CREATSERUM 1.3 01/08/2024 CREATSERUM 1.19 01/01/2024 CREATSERUM 1.3 12/25/2023 CREATSERUM 5.05 (H) 11/19/2018 Renal function stable. Shortness of breath slightly improving with diuresis. Aiming for 1.5 L net negative daily. Additionally, obtaining CT scan per Infectious Disease recommendations. Finally, ordered 2D echo. Kevin Sage MD, FASN Acquisition Consultant of Clinical Medicine [facility] documented in this encounter [facility] 01-23-2024 Plan of care note Patient has had ongoing pain and nausea this shift which improved with prn medications. He was able to get some sleep and continues to use his CPAP when sleeping. He denies numbness in his left hand and is able to move his fingers and pulses are palpable. Patient has call light in reach and bed is in a low and locked position. Problem: Pain, Acute (Adult) Goal: Identify Related Risk Factors and Signs and Symptoms Description: Related risk factors and signs and symptoms are identified upon initiation of Human Response Clinical Practice Guideline (CPG) Outcome: Progressing Flowsheets (Taken 01/23/2024 0653) Related Risk Factors (Acute Pain): surgery Signs and Symptoms (Acute Pain): verbalization of pain descriptors [facility] 01-22-2024 Hospital Discharge instructions Arelis Mera MD - 01/22/2024 2:58 PM EST Read through the attached pamphlets regarding heart failure. Please schedule a follow up appointment with your primary care provider/doctor. Tell them you were just discharged from the hospital and need to be seen in 1-2 weeks. Weight yourself everyday and if you gain more than 5lbs in 2 days, take an extra dose of torsemide 20mg in the afternoon. Then call your doctor for further instructions. Please call [phone], Option 1 or [phone] to schedule your appointment with the Heart Failure Clinic. Arelis Mera MD - 01/22/2024 3:08 PM EST You can change your dressing 48 hours from the procedure The following attachments cannot be sent through Care Everywhere.Heart Failure: Avoiding Triggers (Russian)Heart Failure: Limiting Sodium (Russian)Pain and Pain Control ([facility]) (Russian)documented in this encounter [facility] 01-22-2024 Surgery Postoperative evaluation and management note George Feliz Jensen ([id number]) PRE OPERATIVE DIAGNOSIS High output congestive heart failure [I50.83] POST OPERATIVE DIAGNOSIS Post-Op Diagnosis Codes: * High output congestive heart failure [I50.83] PROCEDURE PERFORMED Procedure(s) (LRB): LIGATION ANGIOACCESS AVF (Left) Resection of large aneurysmic vein PRIMARY CLOSURE Yes INTRAOPERATIVE FINDINGS No significant abnormalities SURGEON Surgeons and Role: * Jyoti Bryant MD, PhD - Primary ANESTHESIOLOGIST Anesthesiologist: Celena Tiwari MD; Kehinde Gutierrez MD FIELD HAULER: Raheem Jasso APRN-FIELD HAULER Crystallography Teacher Assisting: Mini Khan MD SURGICAL STAFF Salesperson Hearing Aids: Zoila Alexander RN Relief Salesperson Hearing Aids: Marimar Saravia RN Relief Scrub: Briseyda Self Scrub Person: Cinda Mai RN Resident Assisting: Leonel Harris DO Fellow: Miki Mcgowan MD, MBBS COMPLICATIONS None ESTIMATED BLOOD LOSS Minimal SPECIMENS No specimen sent * No specimens in log * Jyoti Bryant MD, PhD January 22, 2024 1:34 PM [facility] Work Phone: 01-22-2024 Nurse Note Arrived to PACU assisted by anesthesiology. Connected to monitors. Turned side to side, OR linens removed, repositioned. Airway patent, patient breathing easily. Report received from manager surgical and report received from anesthesiology. Pt arrived awake. VSS. Sats slightly low. Pulm rehab used. Sats currently 3lpm @ 93%. Pt states he uses CPAP nocturnally. A&Ox4. Nerve block left arm, elevated. [facility] 01-22-2024 Surgery Postoperative evaluation and management note Operative Report DATE PERFORMED: 01/22/2024 PREOPERATIVE DIAGNOSIS: Large left upper arm arteriovenous fistula status post basilic vein transposition status post successful kidney transplantation. POSTOPERATIVE DIAGNOSIS: Large left upper arm arteriovenous fistula status post basilic vein transposition status post successful kidney transplantation. PROCEDURE: 1. Ligation of left upper arm arteriovenous fistula. 2. Resection of almost 2 inches of large aneurysmal vein. ANESTHESIA: Axillary block. SURGEON(S): Jyoti Bryant MD, PHD MACHINE DYER: Mynor Fall MD ESTIMATED BLOOD LOSS: Minimal. COMPLICATIONS: None. DRAINS: None. DISPOSITION: Recovery room in stable condition. MEDICAL NECESSITY: Mr. Styles is a 53-year-old male with end-stage renal disease status post successful kidney transplantation. In fact, his kidney is working very well. He had a left upper arm basilic vein transposition which is very large and aneurysmal dilatation of the vein. He underwent cardiac workup which revealed a very high cardiac output, therefore, Nephrology consult for ligation of the fistula. I met the patient and I explained to him all risks of the procedure. Formal consent was obtained. DESCRIPTION OF PROCEDURE: The patient was taken to the operating room, placed supine on the operating table. A left axillary block was administered successfully. Left upper extremity was prepared and draped in the usual sterile fashion. A small incision was made in the medial aspect of his left upper arm in the scar of his previous incision. Dissection was carried down. The large fistula was identified. The vein is very large, almost 1 inch in diameter. We carefully dissected the vein until we were able to put a vessel loop around it for control. Then we started dissecting distally toward the arteriovenous anastomosis until we were close to the brachial artery. At this time, the fistula was crossclamped there. We checked the pulse at the wrist, and there was good palpable pulse in the radial artery. Therefore, the fistula was transected and the stump of the fistula was suture ligated using running 4-0 Prolene. At this time, the clamp was removed, and no bleeding was noted. We started dissecting the fistula itself to resect the aneurysmal part for almost 2 inches. This was done. After that the remainder of the vein was suture-ligated. Hemostasis was adequate. Count was correct x2. Incision was closed in 2 layers. Dressing was placed. The patient tolerated the procedure well, transferred to the recovery room in stable condition. I was present for the entire procedure. Dictated By: Jyoti Bryant MD, PHD Jyoti Bryant MD, PHD ATTENDING AR/MedQ JOB: [id number] DOC: [id number] [facility] 01-22-2024 Plan of care note Patient has been asleep this shift. He continues to deny pain and has been NPO since midnight in preparation of this ligation today. He has his call light in reach and his bed remains low and locked. Problem: Patient Care Overview Goal: Plan of Care Review Outcome: Progressing Flowsheets Taken 01/22/2024 0655 Progress: improving Taken 01/21/2024 1940 Plan Of Care Reviewed With: patient [facility] 01-20-2024 Consult note Associated Order (s): IP CONSULT TO SURGERY - TRANSPLANT (RENAL) Images from the original note were not included. TRANSPLANT SURGERY CONSULT NOTE: Consult: 01/20/2024, 4:03 PM Hotel Maintenance Worker: Starla Morris MD Reason for Consult: Requesting Dr Carson Bryant for AVF revision/closure given new onset high output heart failure George Styles is a 53 y.o. male CURRENT HOSPITALIZATION LOS: Admit Date: 01/16/2024 [facility] Hospital LOS: 4 days George Styles is a 53 y.o. 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 New onset heart fistula US showing high volumes, echo otherwise normal. He no longer received dialysis. He feels better since arrival. Medicine team has been diuresing patient to attempt euvolemia. States he has dyspnea on exertion and even when sleeping. Legs get swollen at sometimes with repetitive activity his left arm gets painful. Denies n/v/d, no fever or chills Immunosuppression: TAC+MMF, TAC trough goal 5-7 Right Heart Cath: high wedge pressure and high flow AVF PROBLEM LIST: Principal Problem: Pleural effusion on right Active Problems: Heart failure, diastolic, acute MEDICAL HISTORY: Past Medical History: Diagnosis Date Acute renal failure CAD (coronary artery disease) Cirrhosis Dialysis patient T, Th, Sa- Started 06/01/2018 End stage renal disease 06/01/2018 Essential hypertension, benign Hepatic encephalopathy History of blood transfusion Liver cirrhosis SURGICAL HISTORY: Past Surgical History: Procedure Laterality Date PLACEMENT NEPHROSTOMY CATHETER PERCUTANEOUS W/ IMAGE GUIDANCE 05/17/2022 Surgeon: Enzo Heart DO; Location: [facility] INTERVENTIONAL RADIOLOGY (VIR) LIVER TRANSPLANT, ORTHOTOPIC N/A 04/12/2020 Laterality: N/A; Surgeon: LU Palma; Location: [facility] SAME DAY SURGERY MAIN OR KIDNEY TRANSPLANT W/O SENECA-CAYUGA NEPHRECTOMY N/A 04/12/2020 Laterality: N/A; Surgeon: LU Palma; Location: [facility] SAME DAY SURGERY MAIN OR OTHER SURGICAL 04/2018 Right chest dialysis cather- ANGIOPLASTY OF BRACHIOCEPHALIC TRUNK OR BRANCH WITH TRANSLUMINAL BALLOON PERCUTANEOUS FOR AVF OR GRA ANKLE SURGERY Right plate in ankle EXTRACTION TOOTH ALLERGIES: Allergies Allergen Reactions Shellfish-Derived Products Swelling Patient with lip and tongue swelling. PRIOR TO ARRIVAL MEDS: Current Facility-Administered Medications Medication Dose Route Frequency Provider Last Rate Last Admin Acetaminophen (TYLENOL) tablet 650 mg 650 mg Oral Q6H PRN Timothy Joseph MD Allopurinol (ZYLOPRIM) tablet 200 mg 200 mg Oral Daily Timothy Joseph MD 200 mg at 01/20/2418 alum/mag hydrox.-simethicone oral suspension 30 mL 30 mL Oral Q6H PRN Timothy Joseph MD [Held by provider] amLODIPine (NORVASC) tablet 5 mg 5 mg Oral Daily Timothy Joseph MD 5 mg at 01/17/24 0857 aspirin chewable tablet 81 mg 81 mg Oral Daily Timothy Joseph MD 81 mg at 01/20/24917 Enoxaparin Sodium (LOVENOX) injection 40 mg 40 mg Subcutaneous Q24H Timothy Joseph MD 40 mg at 01/20/24917 faMOTIdine (PEPCID) tablet 20 mg 20 mg Oral BID Timothy Joseph MD 20 mg at 01/20/24917 Gabapentin (NEURONTIN) capsule 400 mg 400 mg Oral QHS Timothy Joseph MD 400 mg at 01/19/242043 guaiFENesin (ROBITUSSIN) oral solution 400 mg 400 mg Oral Q6H PRN Timothy Joseph MD Itraconazole (SPORANOX) oral solution 100 mg 100 mg Oral Q12H Timothy Joseph MD 100 mg at 01/20/24918 Melatonin tablet 6 mg 6 mg Oral QHS PRN Jasper Groves MD 6 mg at 01/19/242043 Mycophenolate sodium (MYFORTIC) tablet DR 360 mg 360 mg Oral bid Timothy Joseph MD 360 mg at 01/20/24917 Ondansetron 4mg/2ml (ZOFRAN) injection 4 mg 4 mg Intravenous Q6H PRN Timothy Joseph MD 4 mg at 01/16/24 1609 Or Ondansetron (ZOFRAN) tablet 4 mg 4 mg Oral Q6H PRN Timothy Joseph MD 4 mg at 01/17/24 1058 Polyethylene glycol (MIRALAX) packet 17 g 17 g Oral Daily PRN Timothy Joseph MD Prochlorperazine (COMPAZINE) injection 10 mg 10 mg Intravenous Q6H PRN Yury Ozuna MD 10 mg at 01/17/24 2345 Sodium chloride 0.9% IV solution 250 mL 250 mL Intravenous PRN Timothy Joseph MD Sulfamethoxazole-trimethoprim (BACTRIM DS) 800-160 MG per tablet 1 tablet 1 tablet Oral Once per day on Thursday Arelis Mera MD 1 tablet at 01/20/24 0928 tacrolimus (PROGRAF) susp 0.2 mg 0.2 mg Oral Once per day on Thursday Timothy Joseph MD 0.2 mg at 01/19/24 0858 Tamsulosin HCl (FLOMAX) capsule 0.4 mg 0.4 mg Oral Daily Timothy Joseph MD 0.4 mg at 01/20/24 0918 Torsemide (DEMADEX) tablet 20 mg 20 mg Oral BID AC Arelis Mera MD FAMILY HISTORY: SOCIAL HISTORY: REVIEW OF SYSTEMS: As Per HPI CURRENT MEDS: Scheduled Meds: Allopurinol 200 mg Oral Daily [Held by provider] amLODIPine 5 mg Oral Daily aspirin 81 mg Oral Daily enoxaparin 40 mg Subcutaneous Q24H faMOTIdine 20 mg Oral BID Gabapentin 400 mg Oral QHS Itraconazole 100 mg Oral Q12H Mycophenolate sodium 360 mg Oral bid Sulfamethoxazole-trimethoprim 1 tablet Oral Once per day on Thursday tacrolimus 0.2 mg Oral Once per day on Thursday Tamsulosin HCl 0.4 mg Oral Daily Torsemide 20 mg Oral BID AC Continuous Infusions: PRN Meds:Acetaminophen, alum/mag hydrox.-simethicone, guaiFENesin, Melatonin, Ondansetron 4mg/2ml OR Ondansetron, Polyethylene glycol, Prochlorperazine, Sodium chloride 0.9% OBJECTIVE FINDINGS: Vital Signs (24hrs): Temp: [97.6 F (36.4 C)-98 F (36.7 C)] 97.6 F (36.4 C) Pulse (Heart Rate): [45-116] 56 Resp Rate: [14-44] 24 BP: (119-143)/(56-67) 134/61 O2 Sat (%): [89 %-99 %] 93 % Hemodynamic/Invasive Device Data (24 hrs): Pulmonary/Cardiac Hemodynamics Pulse (Heart Rate): 56 Neuro ICP/CPP Monitoring MAP (mmHg): 95 mmHg Neuro ICP/CPP Monitoring 2 MAP (mmHg): 95 mmHg Lines/Drains/Airways/Wounds: Patient Lines/Drains/Airways Status Active Lines, Drains, Airways, & Wound Overview Name Placement date Placement time Site Days Peripheral IV Line - Single Lumen 01/15/24 median cubital vein (antecubital fossa), right 20 gauge 01/15/24 -- -- 5 Peripheral IV Line - Single Lumen 01/18/24 1015 forearm, anterior, right 22 gauge 01/18/24 1015 -- 2 Hemodialysis Peripheral AV Access 04/09/20 0139 HEMODIALYSIS USE ONLY;Hemodialysis 04/09/20 0139 -- 1381 Fluid Management (24hrs): Intake/Output last 3 shifts: I/O last 3 completed shifts: In: 1250 [P.O.:1250] Out: 2230 [Urine:2230] Intake/Output this shift: No intake/output data recorded. PHYSICAL EXAM: Current vitals: BP 134/61 Pulse 56 Temp 97.6 F (36.4 C) (Oral) Resp 24 Ht 1.702 m (5' 7 ) Wt 91.6 kg (201 lb 14.4 oz) SpO2 93% BMI 31.62 kg/m Smoking Status Former Physical Exam: General: No acute distress Neuro: alert and oriented x 3 Cardiovascular: regular rate and rhythm, no murmurs, rubs, gallops Pulmonary: CTAB Abdomen: soft, mildly distended, incision-clean, dry, intact with amber Extremities: left arm fistula with thrill palpable pulses Genitalia: appropriate Skin: no lesions DIAGNOSTIC RESULTS/PROCEDURES: Consults/Procedures: Imaging/Radiological Studies: Labs-CBC: WBC/Hgb/Hct/Plts: 3.79/12.5/38.9/166 (01/20 611) Labs-Chem 7([facility]): Bun/Creat/Cl/CO2/Glucose: 15/1.12/105/28/88 (01/20 611) Na/K+/Phos/Mg/Ca: 141/3.8/--/1.6/-- (01/20 611) Labs-Coags: Ptt/Pt/Inr: 30.6/15.5/1.2 (01/20 611) ASSESSMENT/PLAN: George Styles is a 53 y.o. 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 On workup Right heart cath and US of LUE fistula concerning for high output cardiac failure. - Plan for ligation of fistula on Monday 01/22 - NPO @ midnight prior to surgery - please make sure type and screen is up to day - rest of medical optimization and care per primary team Patient seen and staffed with Dr. Mcgowan fellow railroad crossing protection maintainer Thank you, Starla Morris MD Associated attestation - Jyoti Bryant MD, PhD - 01/22/2024 10:54 AM EST IRomaine Bryant MD, PhD, have independently seen and examined the patient, reviewed the labs, discussed the patient with the fellow/resident and agree with the note. [facility] Work Phone: 01-20-2024 Consult note Associated Order (s): IP CONSULT TO SURGERY - TRANSPLANT (RENAL) Images from the original note were not included. TRANSPLANT SURGERY CONSULT NOTE: Consult: 01/20/2024, 4:03 PM Hotel Maintenance Worker: Starla Morris MD Reason for Consult: Requesting Dr Carson Bryant for AVF revision/closure given new onset high output heart failure George Styles is a 53 y.o. male CURRENT HOSPITALIZATION LOS: Admit Date: 01/16/2024 [facility] Hospital LOS: 4 days George Styles is a 53 y.o. 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 New onset heart fistula US showing high volumes, echo otherwise normal. He no longer received dialysis. He feels better since arrival. Medicine team has been diuresing patient to attempt euvolemia. States he has dyspnea on exertion and even when sleeping. Legs get swollen at sometimes with repetitive activity his left arm gets painful. Denies n/v/d, no fever or chills Immunosuppression: TAC+MMF, TAC trough goal 5-7 Right Heart Cath: high wedge pressure and high flow AVF PROBLEM LIST: Principal Problem: Pleural effusion on right Active Problems: Heart failure, diastolic, acute MEDICAL HISTORY: Past Medical History: Diagnosis Date Acute renal failure CAD (coronary artery disease) Cirrhosis Dialysis patient T, Th, Sa- Started 06/01/2018 End stage renal disease 06/01/2018 Essential hypertension, benign Hepatic encephalopathy History of blood transfusion Liver cirrhosis SURGICAL HISTORY: Past Surgical History: Procedure Laterality Date PLACEMENT NEPHROSTOMY CATHETER PERCUTANEOUS W/ IMAGE GUIDANCE 05/17/2022 Surgeon: Enzo Heart DO; Location: [facility] INTERVENTIONAL RADIOLOGY (VIR) LIVER TRANSPLANT, ORTHOTOPIC N/A 04/12/2020 Laterality: N/A; Surgeon: LU Palma; [facility] SAME DAY SURGERY MAIN OR KIDNEY TRANSPLANT W/O SENECA-CAYUGA NEPHRECTOMY N/A 04/12/2020 Laterality: N/A; Surgeon: LU Palma; [facility] SAME DAY [facility]ERY MAIN OR OTHER SURGICAL 04/2018 Right chest dialysis cather- ANGIOPLASTY OF BRACHIOCEPHALIC TRUNK OR BRANCH WITH TRANSLUMINAL BALLOON PERCUTANEOUS FOR AVF OR GRA ANKLE SURGERY Right plate in ankle EXTRACTION TOOTH ALLERGIES: Allergies Allergen Reactions Shellfish-Derived Products Swelling Patient with lip and tongue swelling. PRIOR TO ARRIVAL MEDS: Current Facility-Administered Medications Medication Dose Route Frequency Provider Last Rate Last Admin Acetaminophen (TYLENOL) tablet 650 mg 650 mg Oral Q6H PRN Timothy Joseph MD Allopurinol (ZYLOPRIM) tablet 200 mg 200 mg Oral Daily Timothy Joseph MD 200 mg at 01/20/24 0918 alum/mag hydrox.-simethicone oral suspension 30 mL 30 mL Oral Q6H PRN Timothy Joseph MD [Held by provider] amLODIPine (NORVASC) tablet 5 mg 5 mg Oral Daily Timothy Joseph MD 5 mg at 01/17/24 0857 aspirin chewable tablet 81 mg 81 mg Oral Daily Timothy Joseph MD 81 mg at 01/20/24 09 Enoxaparin Sodium (LOVENOX) injection 40 mg 40 mg Subcutaneous Q24H Timothy Joseph MD 40 mg at 01/20/24 09 faMOTIdine (PEPCID) tablet 20 mg 20 mg Oral BID Timothy Joseph MD 20 mg at 01/20/24917 Gabapentin (NEURONTIN) capsule 400 mg 400 mg Oral QHS Timothy Joseph MD 400 mg at 01/19/242043 guaiFENesin (ROBITUSSIN) oral solution 400 mg 400 mg Oral Q6H PRN Timothy Joseph MD Itraconazole (SPORANOX) oral solution 100 mg 100 mg Oral Q12H Timothy Joseph MD 100 mg at 01/20/24918 Melatonin tablet 6 mg 6 mg Oral QHS PRN Jasper Groves MD 6 mg at 01/19/242043 Mycophenolate sodium (MYFORTIC) tablet DR 360 mg 360 mg Oral bid Timothy Joseph MD 360 mg at 01/20/24917 Ondansetron 4mg/2ml (ZOFRAN) injection 4 mg 4 mg Intravenous Q6H PRN Timothy Joseph MD 4 mg at 01/16/24 1609 Or Ondansetron (ZOFRAN) tablet 4 mg 4 mg Oral Q6H PRN Timothy Joseph MD 4 mg at 01/17/24 1058 Polyethylene glycol (MIRALAX) packet 17 g 17 g Oral Daily PRN Timothy Joseph MD Prochlorperazine (COMPAZINE) injection 10 mg 10 mg Intravenous Q6H PRN Yury Ozuna MD 10 mg at 01/17/24 2345 Sodium chloride 0.9% IV solution 250 mL 250 mL Intravenous PRN Timothy Joseph MD Sulfamethoxazole-trimethoprim (BACTRIM DS) 800-160 MG per tablet 1 tablet 1 tablet Oral Once per day on Thursday Arelis Mera MD 1 tablet at 01/20/24 0928 tacrolimus (PROGRAF) susp 0.2 mg 0.2 mg Oral Once per day on Thursday Timothy Joseph MD 0.2 mg at 01/19/24 0858 Tamsulosin HCl (FLOMAX) capsule 0.4 mg 0.4 mg Oral Daily Timothy Joseph MD 0.4 mg at 01/20/24 0918 Torsemide (DEMADEX) tablet 20 mg 20 mg Oral BID AC Arelis Mera MD FAMILY HISTORY: SOCIAL HISTORY: REVIEW OF SYSTEMS: As Per HPI CURRENT MEDS: Scheduled Meds: Allopurinol 200 mg Oral Daily [Held by provider] amLODIPine 5 mg Oral Daily aspirin 81 mg Oral Daily enoxaparin 40 mg Subcutaneous Q24H faMOTIdine 20 mg Oral BID Gabapentin 400 mg Oral QHS Itraconazole 100 mg Oral Q12H Mycophenolate sodium 360 mg Oral bid Sulfamethoxazole-trimethoprim 1 tablet Oral Once per day on Thursday tacrolimus 0.2 mg Oral Once per day on Thursday Tamsulosin HCl 0.4 mg Oral Daily Torsemide 20 mg Oral BID AC Continuous Infusions: PRN Meds:Acetaminophen, alum/mag hydrox.-simethicone, guaiFENesin, Melatonin, Ondansetron 4mg/2ml OR Ondansetron, Polyethylene glycol, Prochlorperazine, Sodium chloride 0.9% OBJECTIVE FINDINGS: Vital Signs (24hrs): Temp: [97.6 F (36.4 C)-98 F (36.7 C)] 97.6 F (36.4 C) Pulse (Heart Rate): [45-116] 56 Resp Rate: [14-44] 24 BP: (119-143)/(56-67) 134/61 O2 Sat (%): [89 %-99 %] 93 % Hemodynamic/Invasive Device Data (24 hrs): Pulmonary/Cardiac Hemodynamics Pulse (Heart Rate): 56 Neuro ICP/CPP Monitoring MAP (mmHg): 95 mmHg Neuro ICP/CPP Monitoring 2 MAP (mmHg): 95 mmHg Lines/Drains/Airways/Wounds: Patient Lines/Drains/Airways Status Active Lines, Drains, Airways, & Wound Overview Name Placement date Placement time Site Days Peripheral IV Line - Single Lumen 01/15/24 median cubital vein (antecubital fossa), right 20 gauge 01/15/24 -- -- 5 Peripheral IV Line - Single Lumen 01/18/24 1015 forearm, anterior, right 22 gauge 01/18/24 1015 -- 2 Hemodialysis Peripheral AV Access 04/09/20 0139 HEMODIALYSIS USE ONLY;Hemodialysis 04/09/20 0139 -- 1381 Fluid Management (24hrs): Intake/Output last 3 shifts: I/O last 3 completed shifts: In: 1250 [P.O.:1250] Out: 2230 [Urine:2230] Intake/Output this shift: No intake/output data recorded. PHYSICAL EXAM: Current vitals: BP 134/61 Pulse 56 Temp 97.6 F (36.4 C) (Oral) Resp 24 Ht 1.702 m (5' 7 ) Wt 91.6 kg (201 lb 14.4 oz) SpO2 93% BMI 31.62 kg/m Smoking Status Former Physical Exam: General: No acute distress Neuro: alert and oriented x 3 Cardiovascular: regular rate and rhythm, no murmurs, rubs, gallops Pulmonary: CTAB Abdomen: soft, mildly distended, incision-clean, dry, intact with amber Extremities: left arm fistula with thrill palpable pulses Genitalia: appropriate Skin: no lesions DIAGNOSTIC RESULTS/PROCEDURES: Consults/Procedures: Imaging/Radiological Studies: Labs-CBC: WBC/Hgb/Hct/Plts: 3.79/12.5/38.9/166 (01/20 611) Labs-Chem 7([facility]): Bun/Creat/Cl/CO2/Glucose: 15/1.12/105/28/88 (01/20 611) Na/K+/Phos/Mg/Ca: 141/3.8/--/1.6/-- (01/20 611) Labs-Coags: Ptt/Pt/Inr: 30.6/15.5/1.2 (01/20 611) ASSESSMENT/PLAN: George Styles is a 53 y.o. 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 On workup Right heart cath and US of LUE fistula concerning for high output cardiac failure. - Plan for ligation of fistula on Monday 01/22 - NPO @ midnight prior to surgery - please make sure type and screen is up to day - rest of medical optimization and care per primary team Patient seen and staffed with Dr. Mcgowan fellow railroad crossing protection maintainer Thank you, Starla Morris MD Associated attestation - Jyoti Bryant MD, PhD - 01/22/2024 10:54 AM EST I. Jyoti Bryant MD, PhD, have independently seen and examined the patient, reviewed the labs, discussed the patient with the fellow/resident and agree with the note. Associated Order(s): IP CONSULT TO HEPATOBILIARY N [facility] Hepatology Consult [facility] --> IM Consult Serv [facility] --> [facility] Hepatology consult service Fellow HEPATOLOGY INPATIENT CONSULT Referring Provider: Kelvin Pacheco MD, MBBS Admit Date: 01/16/2024 Reason for Consultation: hx liver-kidney transplant in 2019 c/b histo/blasto on itraconazole, presenting with new heart failure. Please assist with immunosuppression meds HISTORY OF PRESENT ILLNESS: George Styles is a 53 y.o. male, PMH of alcoholic cirrhosis and hypertensive nephrosclerosis s/p DCD SLK (03/2020), Hx of C diff colitis, who presents with heart failure. We are consulted for immunosuppression titration. 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 His immunosuppression was tacro 0.5 mg BID and Mycophenolate [address] He followed up with transplant ID on 09/23/2023. For this presentation, patient states that around a week ago he started develop increasing dyspnea on exertion and increased fatigue. Additionally, prior to last week, patient has been doing well at home off any supplemental oxygen (3-4L). He also had started developing cough with occasional spots of blood. He has had some generalized chest pain associated with exertion and relieved with rest that he describes as dull pain/pressure. Additionally, patient has had 2 weeks of increasing bilateral lower extremity edema with some calf tightness. He has had some abdominal distention. He denied having any history of blood clots in the past. He has also had 1-2 week history of headaches but denied having any myalgia or arthralgias. He denied having any sick contacts and has been afebrile at home. He states he has been more thirsty than usual recently has been drinking a lot of water. On arrival (01/16), vitals were 97.8, 56, 137/65, 15 satting 95% on 3L. Labs showed Na 139, K 4.0, Bicarb 24, BUN 19, Cr 1.04, AST 21, ALT 8, T-bili 1.9, AlkP 70, INR 1.2, WBC 3.6, Hgb 12.1, Plts 155. SARAI with Dr. Max on 01/16/2023. IS at the time was Tacrolimus 0.5 mg BID and Mycophenolate 360 mg BID. - US doppler (01/16/2024): Patent liver transplant vasculature. Liver transplant is mildly heterogeneous in echotexture with surface nodularity, correlate clinically for any evidence of cirrhosis. Indeterminate left lobe subcapsular hyperechoic foci. If clinically indicated, these could be further evaluated with a liver protocol MRI. - CT A/P without contrast (08/31/2023): Transplant liver is stable in size and morphology. No focal lesions. NO ascites or peritransplant fluid collections. PAST MEDICAL HISTORY: PAST MEDICAL HISTORY Past Medical History: Diagnosis Date Acute renal failure CAD (coronary artery disease) Cirrhosis Dialysis patient T, Th, Sa- Started 06/01/2018 End stage renal disease 06/01/2018 Essential hypertension, benign Hepatic encephalopathy History of blood transfusion Liver cirrhosis PAST SURGICAL HISTORY Past Surgical History: Procedure Laterality Date PLACEMENT NEPHROSTOMY CATHETER PERCUTANEOUS W/ IMAGE GUIDANCE 05/17/2022 Surgeon: Enzo Heart DO; [facility] INTER[facility]AL [facility] (VIR) LIVER TRANSPLANT, ORTHOTOPIC N/A 04/12/2020 Laterality: N/A; Surgeon: LU Palma; Location: [facility] SAME DAY SURGERY MAIN OR KIDNEY TRANSPLANT W/O SENECA-CAYUGA NEPHRECTOMY N/A 04/12/2020 Laterality: N/A; Surgeon: LU Palma; Location: [facility] SAME DAY SURGERY MAIN OR OTHER SURGICAL 04/2018 Right chest dialysis cather- ANGIOPLASTY OF BRACHIOCEPHALIC TRUNK OR BRANCH WITH TRANSLUMINAL BALLOON PERCUTANEOUS FOR AVF OR GRA ANKLE SURGERY Right plate in ankle EXTRACTION TOOTH CURRENT MEDICATIONS Allopurinol 200 mg Oral Daily [Held by provider] amLODIPine 5 mg Oral Daily aspirin 81 mg Oral Daily enoxaparin 40 mg Subcutaneous Q24H faMOTIdine 20 mg Oral BID furosemide 40 mg Intravenous BID AC Gabapentin 400 mg Oral QHS Itraconazole 100 mg Oral Q12H Mycophenolate sodium 360 mg Oral bid Sulfamethoxazole-trimethoprim 1 tablet Oral Once per day on Thursday tacrolimus 0.2 mg Oral Once per day on Thursday Tamsulosin HCl 0.4 mg Oral Daily ALLERGIES Allergies Allergen Reactions Shellfish-Derived Products Swelling Patient with lip and tongue swelling. SOCIAL HISTORY He reports that he quit smoking about 5 years ago. His smoking use included cigarettes. He started smoking about 35 years ago. He has a 29.8 pack-year smoking history. He quit smokeless tobacco use about 29 years ago. His smokeless tobacco use included chew. He reports that he does not currently use alcohol after a past usage of about 2.0 standard drinks of alcohol per week. He reports that he does not use drugs. FAMILY HISTORY Family History Problem Relation Age [...] Grandfather Heart Disease - Other Paternal Grandmother PHYSICAL EXAM: Temp: [97.5 F (36.4 C)-98.5 F (36.9 C)] 97.5 F (36.4 C) Pulse (Heart Rate): [52-54] 52 Resp Rate: [16-18] 16 BP: (114-130)/(56-67) 130/67 O2 Sat (%): [90 %-94 %] 92 % Weight: [97.3 kg (214 lb 9.6 oz)] 97.3 kg (214 lb 9.6 oz) Wt Readings from Last 3 Encounters: 01/17/24 97.3 kg (214 lb 9.6 oz) 09/21/23 93 kg (205 lb) 09/10/23 92.7 kg (204 lb 4.8 oz) General: No acute distress. Comfortable. HEENT: PERRL. Normal extraocular muscle movements. Normal oral mucosa. Neurological: Alert and oriented to person, place, and time. No gross motor deficit. No asterixis. Neck: Neck supple without lymphadenopathy. Trachea midline. Respiratory: Diminished lung sounds on posterior bases. Cardiovascular: Normal S1, S2; RRR. No murmurs, rubs, or gallops. Abdominal: Non-tender, non-distended. No guarding, no rebound. Normoactive bowel sounds. Extremities: Well-perfused. Minimal edema. Skin: No rash. LABS: CBC: Lab Results Component Value Date WBC 3.66 (L) 01/18/2024 WBC 4.0 01/08/2024 HGB 12.1 (L) 01/18/2024 HGB 14.0 01/08/2024 PLATELET 183 01/18/2024 PLATELET 180 01/08/2024 MCV 88.3 01/18/2024 MCV 93.7 05/17/2019 Chemistry: Lab Results Component Value Date SODIUM 141 01/18/2024 POTASSIUM 3.9 01/18/2024 CHLORIDE 108 01/18/2024 CO2 26 01/18/2024 BUN 16 01/18/2024 CREATSERUM 1.00 01/18/2024 GLUCOSE 89 01/18/2024 MAGNESIUM 1.5 (L) 01/18/2024 Liver Function Tests: Lab Results Component Value Date ALT 8 (L) 01/18/2024 ALT 22 01/08/2024 AST 20 01/18/2024 AST 25 01/08/2024 ALKPHOS 70 01/18/2024 ALKPHOS 94 01/08/2024 BILITOTAL 1.7 (H) 01/18/2024 BILITOTAL 2.3 01/08/2024 BILIDIRECT 0.4 (H) 01/18/2024 BILIDIRECT 0.3 01/08/2024 INR 1.1 01/18/2024 INR 1.1 05/03/2020 IMAGING/STUDIES: All relevant imaging and procedures were reviewed. ASSESSMENT AND PLAN: George Styles is a 53 y.o. male, PMH of alcoholic cirrhosis and hypertensive nephrosclerosis s/p DCD SLK (03/2020), Hx of C diff colitis, who presents with heart failure. We are consulted for immunosuppression titration. The patient presents with heart failure. This could be possibly related to pericardial effusion/percarditis in the setting of recent fungal infection. There is also some concern for recurrence of cirrhosis in the transplanted liver, but this is unlikely given the timing and does not usually present so acutely. In terms of his immunosuppression, tacro goal is 4-6 and he should continue Mycophenolate given his K-L transplant. IMPRESSION 1. S/p DCD SLK (03/2020) 2. Acute heart failure ASSESSMENT/RECOMMENDATIONS: - Check TSH - Follow-up Echocardiogram - Continue Tacro 0.2 mg TTS, mycophenolate 360 mg BID - Check daily tacro troughs - Fibroscan (order for outpatient) Please SecureChat or Call ([phone]) for any questions. Await attending attestation for final recommendations. Hank Noel MD Division of Gastroenterology, Hepatology, and Nutrition Clinical Fellow, PGY-5 Pager: [phone] For urgent/stat calls or consults 5pm to 7am, please page the on-call GI fellow on [employer]. [facility]--> Internal Medicine--> Gastroenterology, Hepatology, & Nutrition--> 1st Call Janae Hatfield For urgent/stat calls or consults 7am to 5pm during the weekend, please page the on-call GI fellow on [employer]. [facility]--> Internal Medicine--> Gastroenterology, Hepatology, & Nutrition--> All Hep & [place] Cons Fel Day For follow up questions regarding this patient 7am to 5pm during the weekday, contact the Hepatology consults fellow or CARLOS A on [employer]. [facility]--> Internal Medicine--> Gastroenterology, Hepatology, & Nutrition--> All Hep Consult Fel Day OR Transplant Hep Consults CARLOS A Day Associated attestation - Michael Estrada MD, LU - 01/19/2024 8:32 AM EST ATTENDING STATEMENT: I have personally seen and examined this patient independently. All pertinent data has been reviewed. I agree with the resident/fellow dictated impression and plan. George Styles is a 53 y.o. male, post SLKT for alcoholic cirrhosis in 03/2020. He also has hypertensive nephrosclerosis, Hx of C diff colitis. Admitted with SOB 2/2 heart failure. We are consulted for immunosuppression titration. CXR and Echo showed pericardial effusion/percarditis in the setting of recent fungal infection. In terms of his immunosuppression, tacro goal is 4-6 and he should continue Mycophenolate given his K-L transplant. Today, he is doing well from liver standpoint. He is breathless and using O2 inhalation. - Stable from LT standpoint - Check TSH - Follow-up Echocardiogram - Continue Tacro 0.2 mg TTS, mycophenolate 360 mg BID - Check daily tacro troughs - Fibroscan (order for outpatient) Michael Estrada MD, MSc documented in this encounter [facility] 01-19-2024 Nurse Note 01/19/24 0900 Vitals ICU/PCU Pulse (Heart Rate) 55 Oxygen Therapy O2 Sat (%) 97 % (SpO2 probe changed and now with good wave form, 96-99% on 2L/NC) O2 Device nasal cannula Flow (L/min) 2 SpO2 noted to have poor waveform. Probe changed and skin prep applied prior to applying probe. Three star wave form showing 100% 4L/NC. Pt decreased to 2L/NC and remains 97-99% at rest, 95-96% when talking/moving. Paulette Cordon RN [facility] 01-19-2024 Nurse Note Paged overnight coverage, Jasper Gastelum MD, via pager #[phone] Pt- George Styles. Sarah [phone]. TM1. Was wondering if he can have his Melatonin order increased to 6mg. Per pt, he usually takes 8mg at home. 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 Please assist with immunosuppression meds HISTORY OF PRESENT ILLNESS: George Styles is a 53 y.o. male, PMH of alcoholic cirrhosis and hypertensive nephrosclerosis s/p DCD SLK (03/2020), Hx of C diff colitis, who presents with heart failure. We are consulted for immunosuppression titration. 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 His immunosuppression was tacro 0.5 mg BID and Mycophenolate [address] He followed up with transplant ID on 09/23/2023. For this presentation, patient states that around a week ago he started develop increasing dyspnea on exertion and increased fatigue. Additionally, prior to last week, patient has been doing well at home off any supplemental oxygen (3-4L). He also had started developing cough with occasional spots of blood. He has had some generalized chest pain associated with exertion and relieved with rest that he describes as dull pain/pressure. Additionally, patient has had 2 weeks of increasing bilateral lower extremity edema with some calf tightness. He has had some abdominal distention. He denied having any history of blood clots in the past. He has also had 1-2 week history of headaches but denied having any myalgia or arthralgias. He denied having any sick contacts and has been afebrile at home. He states he has been more thirsty than usual recently has been drinking a lot of water. On arrival (01/16), vitals were 97.8, 56, 137/65, 15 satting 95% on 3L. Labs showed Na 139, K 4.0, Bicarb 24, BUN 19, Cr 1.04, AST 21, ALT 8, T-bili 1.9, AlkP 70, INR 1.2, WBC 3.6, Hgb 12.1, Plts 155. SARAI with Dr. Max on 01/16/2023. IS at the time was Tacrolimus 0.5 mg BID and Mycophenolate 360 mg BID. - US doppler (01/16/2024): Patent liver transplant vasculature. Liver transplant is mildly heterogeneous in echotexture with surface nodularity, correlate clinically for any evidence of cirrhosis. Indeterminate left lobe subcapsular hyperechoic foci. If clinically indicated, these could be further evaluated with a liver protocol MRI. - CT A/P without contrast (08/31/2023): Transplant liver is stable in size and morphology. No focal lesions. NO ascites or peritransplant fluid collections. PAST MEDICAL HISTORY: PAST MEDICAL HISTORY Past Medical History: Diagnosis Date Acute renal failure CAD (coronary artery disease) Cirrhosis Dialysis patient T, Th, Sa- Started 06/01/2018 End stage renal disease 06/01/2018 Essential hypertension, benign Hepatic encephalopathy History of blood transfusion Liver cirrhosis PAST SURGICAL HISTORY Past Surgical History: Procedure Laterality Date PLACEMENT NEPHROSTOMY CATHETER PERCUTANEOUS W/ IMAGE GUIDANCE 05/17/2022 Surgeon: Enzo Heart DO; Location: [facility] INTERVENTIONAL RADIOLOGY (VIR) LIVER TRANSPLANT, ORTHOTOPIC N/A 04/12/2020 Laterality: N/A; Surgeon: LU Palma; Location: [facility] SAME DAY SURGERY MAIN OR KIDNEY TRANSPLANT W/O SENECA-CAYUGA NEPHRECTOMY N/A 04/12/2020 Laterality: N/A; Surgeon: LU Palma; Location: [facility] SAME DAY SURGERY MAIN OR OTHER SURGICAL 04/2018 Right chest dialysis cather- ANGIOPLASTY OF BRACHIOCEPHALIC TRUNK OR BRANCH WITH TRANSLUMINAL BALLOON PERCUTANEOUS FOR AVF OR GRA ANKLE SURGERY Right plate in ankle EXTRACTION TOOTH CURRENT MEDICATIONS Allopurinol 200 mg Oral Daily [Held by provider] amLODIPine 5 mg Oral Daily aspirin 81 mg Oral Daily enoxaparin 40 mg Subcutaneous Q24H faMOTIdine 20 mg Oral BID furosemide 40 mg Intravenous BID AC Gabapentin 400 mg Oral QHS Itraconazole 100 mg Oral Q12H Mycophenolate sodium 360 mg Oral bid Sulfamethoxazole-trimethoprim 1 tablet Oral Once per day on Thursday tacrolimus 0.2 mg Oral Once per day on Thursday Tamsulosin HCl 0.4 mg Oral Daily ALLERGIES Allergies Allergen Reactions Shellfish-Derived Products Swelling Patient with lip and tongue swelling. SOCIAL HISTORY He reports that he quit smoking about 5 years ago. His smoking use included cigarettes. He started smoking about 35 years ago. He has a 29.8 pack-year smoking history. He quit smokeless tobacco use about 29 years ago. His smokeless tobacco use included chew. He reports that he does not currently use alcohol after a past usage of about 2.0 standard drinks of alcohol per week. He reports that he does not use drugs. FAMILY HISTORY Family History Problem Relation Age [...] Grandfather Heart Disease - Other Paternal Grandmother PHYSICAL EXAM: Temp: [97.5 F (36.4 C)-98.5 F (36.9 C)] 97.5 F (36.4 C) Pulse (Heart Rate): [52-54] 52 Resp Rate: [16-18] 16 BP: (114-130)/(56-67) 130/67 O2 Sat (%): [90 %-94 %] 92 % Weight: [97.3 kg (214 lb 9.6 oz)] 97.3 kg (214 lb 9.6 oz) Wt Readings from Last 3 Encounters: 01/17/24 97.3 kg (214 lb 9.6 oz) 09/21/23 93 kg (205 lb) 09/10/23 92.7 kg (204 lb 4.8 oz) General: No acute distress. Comfortable. HEENT: PERRL. Normal extraocular muscle movements. Normal oral mucosa. Neurological: Alert and oriented to person, place, and time. No gross motor deficit. No asterixis. Neck: Neck supple without lymphadenopathy. Trachea midline. Respiratory: Diminished lung sounds on posterior bases. Cardiovascular: Normal S1, S2; RRR. No murmurs, rubs, or gallops. Abdominal: Non-tender, non-distended. No guarding, no rebound. Normoactive bowel sounds. Extremities: Well-perfused. Minimal edema. Skin: No rash. LABS: CBC: Lab Results Component Value Date WBC 3.66 (L) 01/18/2024 WBC 4.0 01/08/2024 HGB 12.1 (L) 01/18/2024 HGB 14.0 01/08/2024 PLATELET 183 01/18/2024 PLATELET 180 01/08/2024 MCV 88.3 01/18/2024 MCV 93.7 05/17/2019 Chemistry: Lab Results Component Value Date SODIUM 141 01/18/2024 POTASSIUM 3.9 01/18/2024 CHLORIDE 108 01/18/2024 CO2 26 01/18/2024 BUN 16 01/18/2024 CREATSERUM 1.00 01/18/2024 GLUCOSE 89 01/18/2024 MAGNESIUM 1.5 (L) 01/18/2024 Liver Function Tests: Lab Results Component Value Date ALT 8 (L) 01/18/2024 ALT 22 01/08/2024 AST 20 01/18/2024 AST 25 01/08/2024 ALKPHOS 70 01/18/2024 ALKPHOS 94 01/08/2024 BILITOTAL 1.7 (H) 01/18/2024 BILITOTAL 2.3 01/08/2024 BILIDIRECT 0.4 (H) 01/18/2024 BILIDIRECT 0.3 01/08/2024 INR 1.1 01/18/2024 INR 1.1 05/03/2020 IMAGING/STUDIES: All relevant imaging and procedures were reviewed. ASSESSMENT AND PLAN: George Styles is a 53 y.o. male, PMH of alcoholic cirrhosis and hypertensive nephrosclerosis s/p DCD SLK (03/2020), Hx of C diff colitis, who presents with heart failure. We are consulted for immunosuppression titration. The patient presents with heart failure. This could be possibly related to pericardial effusion/percarditis in the setting of recent fungal infection. There is also some concern for recurrence of cirrhosis in the transplanted liver, but this is unlikely given the timing and does not usually present so acutely. In terms of his immunosuppression, tacro goal is 4-6 and he should continue Mycophenolate given his K-L transplant. IMPRESSION 1. S/p DCD SLK (03/2020) 2. Acute heart failure ASSESSMENT/RECOMMENDATIONS: - Check TSH - Follow-up Echocardiogram - Continue Tacro 0.2 mg TTS, mycophenolate 360 mg BID - Check daily tacro troughs - Fibroscan (order for outpatient) Please SecureChat or Call ([phone]) for any questions. Await attending attestation for final recommendations. Hank Noel MD Division of Gastroenterology, Hepatology, and Nutrition Clinical Fellow, PGY-5 Pager: [phone] For urgent/stat calls or consults 5pm to 7am, please page the on-call GI fellow on [employer]. [facility]--> Internal Medicine--> Gastroenterology, Hepatology, & Nutrition--> 1st Call Fel Alysia For urgent/stat calls or consults 7am to 5pm during the weekend, please page the on-call GI fellow on [employer]. [facility]--> Internal Medicine--> Gastroenterology, Hepatology, & Nutrition--> All Hep & [place] Cons Fel Day For follow up questions regarding this patient 7am to 5pm during the weekday, contact the Hepatology consults fellow or CARLOS A on [employer]. [facility]--> Internal Medicine--> Gastroenterology, Hepatology, & Nutrition--> All Hep Consult Fel Day OR Transplant Hep Consults CARLOS A Day Associated attestation - Michael Estrada MD, LU - 01/19/2024 8:32 AM EST ATTENDING STATEMENT: I have personally seen and examined this patient independently. All pertinent data has been reviewed. I agree with the resident/fellow dictated impression and plan. George Styles is a 53 y.o. male, post SLKT for alcoholic cirrhosis in 03/2020. He also has hypertensive nephrosclerosis, Hx of C diff colitis. Admitted with SOB 2/2 heart failure. We are consulted for immunosuppression titration. CXR and Echo showed pericardial effusion/percarditis in the setting of recent fungal infection. In terms of his immunosuppression, tacro goal is 4-6 and he should continue Mycophenolate given his K-L transplant. Today, he is doing well from liver standpoint. He is breathless and using O2 inhalation. - Stable from LT standpoint - Check TSH - Follow-up Echocardiogram - Continue Tacro 0.2 mg TTS, mycophenolate 360 mg BID - Check daily tacro troughs - Fibroscan (order for outpatient) Michael Estrada MD, MSc [facility] Work Phone: 01-16-2024 Plan of care note Internal Medicine Daily Progress Note Patient: eGorge Styles, 1970, [id number] Physician: Arelis Mera MD, PGY3, Pager #[phone], TM1 service Assessment/Plan: George Styles is a 53 y.o. 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 Acute Hypoxic Respiratory Insufficiency GARCIA, Bilateral JENSEN, R Pleural Effusion c/f Acute Heart Failure Patient previously required 3-4L NC only during sleep last admission and now wears CPAP qhs. Was not on home oxygen during the day. Reports 1w GARCIA, 1 month progressive JENSEN and abd distension. Differential includes fluid overload secondary to portal hypertension in the setting liver transplant vs new onset heart failure. Low suspicion for PE. Less likely repeat of prior histo infection given patient has been on itraconazole at home, denies fevers night sweats weight loss. CXR ordered, TTE pending EKG without evidence of ischemia and no active chest pain, if TTE showing RWMA consider ischemic evaluation Given more suspicion for progressive volume overload as etiology, discontinue CTPE and JENSEN duplex IV lasix for goal net neg 1L Holding off on antibiotics given no systemic signs of infection Titrate oxygen as needed to maintain saturations >92% Pulmonary toilet Subacute Isolated Hyperbilirubinemia Noted to have elevated Tbili without transaminitis since October (Tbili 2.5), wnl previously in August. 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 Was due to have a repeat CT chest that looks like was never completed. 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 CMV serum PCR negative, BK serum negative, EBV negative previously. Denies any alcohol use, reports compliance with all IS meds. Current immunosuppression: tacrolimus 0.2 mg every Thursday, , Thursday and mycophenolate 360mg BID Tac trough pending Not on Bactrim per patient, however supposed to be on ppx - will resume MWF ppx Chronic Tremor - High freq, low amp, not appearing to be asterixis likely essential. Monitor Essential Hypertension- continue home amlodipine 5mg CAD: non-obstructive CAD on [facility] 2018. - continue home aspirin 81mg daily, statin to be resumed following itraconazole completion Gout: continue home allopurinol 200mg daily BPH: continue home flomax 0.4mg daily Complexity. Hypocalcemia - Continue to monitor and replete. Obesity Body mass index is 32.8 kg/m . - Follow with PCP for dietary and lifestyle modifications. DVT prophylaxis with lovenox Diet DIET LIVER - VERY LOW SODIUM Disposition: home pending clinical improvement and evaluation Code status is Full Code Discussed with team and attending, Dr Kevin Sage MD, on rounds. Signed, Arelis Mera MD [facility] 01-16-2024 Nurse Note Mr. Styles was admitted to [address] [place] [address]. On admission to [facility], from outside facility a dual RN initial assessment of skin condition was performed by Izzy Gutierrez RN and Leroy Singleton RN. 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 [facility] 01-16-2024 History and physical note Images from the original note were not included. Internal Medicine Admission History & Physical Patient: George Styles, 1970, [id number] Physician: Timothy Joseph MD, PGY1, Pager #[phone], TM 1 service Date of face to face patient encounter: 01/16/24 . Chief Complaint: Lower extremity edema and shortness of breath History Of Present Illness: George Styles is a 53 y.o. male with a history of PMH of HTN, CAD, EtOH cirrhosis, hepatorenal syndrome s/p combined Liver-kidney transplant on 04/13/20, histo/blasto infection presenting with SOB and JESNEN. Patient states that around a week ago he started develop increasing dyspnea on exertion and increased fatigue. Additionally, prior to last week, patient has been doing well at home off any supplemental oxygen (3-4L). He also had started developing cough with occasional spots of blood. He has had some generalized chest pain associated with exertion and relieved with rest that he describes as dull pain/pressure. Additionally, patient has had 2 weeks of increasing bilateral lower extremity edema with some calf tightness. He has had some abdominal distention. He denied having any history of blood clots in the past. He has also had 1-2 week history of headaches but denied having any myalgia or arthralgias. He denied having any sick contacts and has been afebrile at home. He states he has been more thirsty than usual recently has been drinking a lot of water. Patient states that he was chronic nausea has been stable, usually requiring Zofran once a day. He denied having any vomiting, diarrhea. Denied having any dysuria. No new skin rashes. Denied any missed dosages of his IS. Patient initially presented to OSH on 01/15/2024 with one-week history of shortness of breath with worsening swelling in bilateral lower legs and ankles. At OSH, Chem 7 with creatinine at 1.33. RVP negative. Blood cultures drawn. Chest x-ray showing moderate size right pleural effusion with partial consolidation of right lower lobe and right middle lobe concerning for atelectasis versus pneumonia. He received a dosage of ceftriaxone and Zosyn prior to transfer. Last echo was in 03/2020 with MAILE showing preserved EF at 60%. On admission, patient is afebrile, hemodynamically stable, satting mid 90s on 4 L nasal cannula. Chem 7 was WNL with creatinine at 1.04. CBC with WBC s at 3.62, hemoglobin 12.1, platelets 155. Mag, phos WNL. Calcium at 8.5. LFTs with increased T bili at 1.9 with direct 0.4. INR 1.2. D-Dimer elevated at 0.67. Medical/Surgical History: Past Medical History: Diagnosis Date Acute renal failure CAD (coronary artery disease) Cirrhosis Dialysis patient T, Th, Sa- Started 06/01/2018 End stage renal disease 06/01/2018 Essential hypertension, benign Hepatic encephalopathy History of blood transfusion Liver cirrhosis Past Surgical History: Procedure Laterality Date PLACEMENT NEPHROSTOMY CATHETER PERCUTANEOUS W/ IMAGE GUIDANCE 05/17/2022 Surgeon: Enzo Heart DO; Location: [facility] INTERVENTIONAL RADIOLOGY (VIR) LIVER TRANSPLANT, ORTHOTOPIC N/A 04/12/2020 Laterality: N/A; Surgeon: LU Palma; Location: [facility] SAME DAY SURGERY MAIN OR KIDNEY TRANSPLANT W/O SENECA-CAYUGA NEPHRECTOMY N/A 04/12/2020 Laterality: N/A; Surgeon: LU Palma; Location: [facility] SAME DAY SURGERY MAIN OR OTHER SURGICAL 04/2018 Right chest dialysis cather- ANGIOPLASTY OF BRACHIOCEPHALIC TRUNK OR BRANCH WITH TRANSLUMINAL BALLOON PERCUTANEOUS FOR AVF OR GRA ANKLE SURGERY Right plate in ankle EXTRACTION TOOTH Social History: he reports that he quit smoking about 5 years ago. His smoking use included cigarettes. He started smoking about 35 years ago. He has a 29.8 pack-year smoking history. He quit smokeless tobacco [...] Sig: Take 2 tablets by mouth daily. CUSTOM MEDICATION Sig: Labs to be obtained: 1- Tacrolimus level, trough - collect twice weekly until 09/24/23, then weekly until 10/08/23, them once every two weeks there after. 2- Itraconazole level - obtain once between 09/14-09/18. 3- Chem 6 - Obtain weekly while on itraconazole Fax results to: Dr. White - [phone] Transplant Neph - [phone] Gabapentin 400 MG capsule Sig: Take 1 capsule by mouth at bedtime. Itraconazole 10 MG/ML Solution Sig: Take 10 mL by mouth every 12 hours. Mycophenolate sodium (MYFORTIC) [address] tablet Sig: Take 1 tablet by mouth every 12 hours. Sulfamethoxazole-trimethoprim 800-160 MG per tablet Sig: Take 1 tablet by mouth three times a week. Tacrolimus 0.2 MG Pack Sig: Mix 1 packet (0.2 mg) and take by mouth every Thursday, , Thursday. Tamsulosin HCl 0.4 MG capsule Sig: Take 1 capsule by mouth daily. amLODIPine 5 MG tablet Sig: Take 1 tablet by mouth daily. aspirin 81 MG Chew Tab chewable tablet Sig: Chew 1 tablet daily. Last refill from our office. Medication can be purchased over the counter going forward. faMOTIdine 20 MG tablet Sig: Take 1 tablet by mouth 2 times daily. magnesium oxide 400 (240 Mg) MG Sig: Take 2 tablets by mouth daily. melatonin 3 MG tablet Sig: Take [...] lip and tongue swelling. Review of Systems: As noted in the HPI. Physical Exam: Vitals: 01/16/24 0056 BP: 145/70 Resp: 17 Temp: 97.7 F (36.5 C) SpO2: 96% O2 Device: nasal cannula (01/16/2455) Flow (L/min): 4 (01/16/2455) Gen: Alert, Awake, NAD Eyes: PERRLA, EOMI, no icterus ENT: MMM, trachea midline Resp: + diminished lung sound on RLL, normal respiratory effort Cardio: RRR, normal S1, S2, no M/R/G. + 1 JENSEN through midcalf. GI: Mildly distended, + hepatomegaly, BS present MSK: No joint effusions or erythema: Skin: No jaundice or rash Neuro: public health professor 3-7, 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 Strength grossly equal in muscle groups of the bilateral UEs and LEs. Psych: Ox3, appropriate affect and cognition Data Review: Additional Labs: Imaging: ECG Impression/Plan: George Styles is a 53 y.o. 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 Acute Hypoxic Respiratory Insufficiency Bilateral JENSEN R Pleural Effusion Patient requiring 3-4L NC last admission but was able to be weaned off O2 at home. Differential includes fluid overload secondary to portal hypertension in the setting liver transplant, new onset heart failure, pneumonia, PE. Less likely repeat of prior histo infection given patient has been on itraconazole at home. Originally planned to get a TTE and liver ultrasound outpatient. 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 Was due to have a repeat CT chest that looks like was never completed. Continuing home itraconazole 100 mg b.i.d. Hx of Kidney Transplant: Patient is s/p combined liver/kidney transplant in 04/13/20. Prior to presentation, patient takes tacrolimus 0.2 mg Thursday, , Thursday and mycophenolate 360mg BID for immunosuppression. Baseline creatinine appears to be 1.1-1.4, though variable. CMV serum PCR negative, BK serum negative, EBV negative previously Current immunosuppression: tacrolimus 0.2 mg every Thursday, , Thursday and mycophenolate 360mg BID Tac trough pending Not on Bactrim per patient Hyperbilirubinemia, elevated INR in the setting of Liver Transplant Liver doppler as above IS as above Chronic Medical Conditions Essential Hypertension- controlled - continue home amlodipine 5mg CAD: non-obstructive CAD on [facility] 2018. - continue home aspirin 81mg daily Gout: continue home allopurinol 200mg daily BPH: continue home flomax 0.4mg daily Complexity. Obesity Body mass index is 32.8 kg/m . - Follow with PCP for dietary and lifestyle modifications. Any conditions listed below are present on admission unless otherwise specified. . DVT prophylaxis with lovenox Disposition: admitted to [facility] Code status is Full Staffed with Dr. Niki Valle, Timothy Joseph MD Internal Medicine PGY1 Attending Physician Addendum I saw and personally [...] was initially admitted to the hospital on 01/16/2024 for an initial diagnosis of Pleural effusion on right [J90]. Transplant Physician: Erma Canas, Melania Pierson, Luisa Steven, Renee Rivera, Daisha Max Framing Mill Operator: José Miguel Garnica All Txt: 04/13/2020 (Kidney), 04/13/2020 (Liver) Current I/S Meds: Current Immunosuppressive Medication(s) Immunosuppressive Agents Mycophenolate sodium (MYFORTIC) tablet DR 360 mg 360 mg, Oral, 2 TIMES DAILY (Solid Organ Transplant), Give on an empty stomach. Swallow tablet whole; do not crush, split or chew. Contact pharmacy if alternate route or dose is needed. tacrolimus (PROGRAF) susp 0.2 mg 0.2 mg, Oral, CUSTOM FREQUENCY, Caution check route of administration. For sublingual administration, place liquid under tongue and allow absorption. LABS Lab Results Component Value Date WBC 3.62 (L) 01/16/2024 HGB 12.1 (L) 01/16/2024 PLATELET 155 01/16/2024 Lab Results Component Value Date SODIUM 139 01/16/2024 POTASSIUM 4.0 01/16/2024 CHLORIDE 108 01/16/2024 CO2 24 01/16/2024 BUN 19 01/16/2024 CREATSERUM 1.04 01/16/2024 GLUCOSE 95 01/16/2024 Lab Results Component Value Date CALCIUM 8.5 (L) 01/16/2024 PHOSPHORUS 4.1 01/16/2024 Lab Results Component Value Date CREATSERUM 1.04 01/16/2024 CREATSERUM 1.3 01/08/2024 CREATSERUM 1.19 01/01/2024 CREATSERUM 1.3 12/25/2023 CREATSERUM 5.05 (H) 11/19/2018 I/S levels: No results found for: CYCLOSPORIN , CYCLOSPORIN2 , [id number] , CYCLORAND No results found for: SIROLIMUS , RAPAMUNE , RAPAMYCIN No results found for: EVEROLIMUS , EVRLMSTRGH , EVERTRGHMANE , EVRLMSRND Lab Results Component Value Date TACROLIMUS 5.7 01/16/2024 TACROTRGHMAN 5.2 01/08/2024 Initially, when received call from outside hospital impression was that of pneumonia given shortness of breath in the setting of immunosuppressed state. On my examination and after discussion with the patient, it appears patient has been having insidious worsening of shortness of breath which is worse on exertion. Patient describes orthopnea and PND. My examination patient has lower extremity edema which he states has been getting worse over the last few weeks. Based on these data, initial impression is that of possibly congestive heart failure as opposed to PE. Patient states that this shortness of breath has been slowly increasing over time as opposed to abruptly. Based on these data will workup congestive heart failure. Additionally obtaining imaging per Infectious Disease request in chart. Kevin Sage MD Pager [phone] [facility] 01-16-2024 History and physical note Images from the original note were not included. Internal Medicine Admission History & Physical Patient: George Styles 1970, [id number] Physician: Timothy Joseph MD, PGY1, Pager #[phone], TM 1 service Date of face to face patient encounter: 01/16/24 . Chief Complaint: Lower extremity edema and shortness of breath History Of Present Illness: George Styles is a 53 y.o. 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 Patient states that around a week ago he started develop increasing dyspnea on exertion and increased fatigue. Additionally, prior to last week, patient has been doing well at home off any supplemental oxygen (3-4L). He also had started developing cough with occasional spots of blood. He has had some generalized chest pain associated with exertion and relieved with rest that he describes as dull pain/pressure. Additionally, patient has had 2 weeks of increasing bilateral lower extremity edema with some calf tightness. He has had some abdominal distention. He denied having any history of blood clots in the past. He has also had 1-2 week history of headaches but denied having any myalgia or arthralgias. He denied having any sick contacts and has been afebrile at home. He states he has been more thirsty than usual recently has been drinking a lot of water. Patient states that he was chronic nausea has been stable, usually requiring Zofran once a day. He denied having any vomiting, diarrhea. Denied having any dysuria. No new skin rashes. Denied any missed dosages of his IS. Patient initially presented to OSH on 01/15/2024 with one-week history of shortness of breath with worsening swelling in bilateral lower legs and ankles. At OSH, Chem 7 with creatinine at 1.33. RVP negative. Blood cultures drawn. Chest x-ray showing moderate size right pleural effusion with partial consolidation of right lower lobe and right middle lobe concerning for atelectasis versus pneumonia. He received a dosage of ceftriaxone and Zosyn prior to transfer. Last echo was in 03/2020 with MAILE showing preserved EF at 60%. On admission, patient is afebrile, hemodynamically stable, satting mid 90s on 4 L nasal cannula. Chem 7 was WNL with creatinine at 1.04. CBC with WBC s at 3.62, hemoglobin 12.1, platelets 155. Mag, phos WNL. Calcium at 8.5. LFTs with increased T bili at 1.9 with direct 0.4. INR 1.2. D-Dimer elevated at 0.67. Medical/Surgical History: Past Medical History: Diagnosis Date Acute renal failure CAD (coronary artery disease) Cirrhosis Dialysis patient T, Th, Sa- Started 06/01/2018 End stage renal disease 06/01/2018 Essential hypertension, benign Hepatic encephalopathy History of blood transfusion Liver cirrhosis Past Surgical History: Procedure Laterality Date PLACEMENT NEPHROSTOMY CATHETER PERCUTANEOUS W/ IMAGE GUIDANCE 05/17/2022 Surgeon: Enzo Heart DO; Location: [facility] INTERVENTIONAL RADIOLOGY (VIR) LIVER TRANSPLANT, ORTHOTOPIC N/A 04/12/2020 Laterality: N/A; Surgeon: LU Palma; Location: [facility] SAME DAY SURGERY MAIN OR KIDNEY TRANSPLANT W/O SENECA-CAYUGA NEPHRECTOMY N/A 04/12/2020 Laterality: N/A; Surgeon: LU Palma; Location: [facility] SAME DAY SURGERY MAIN OR OTHER SURGICAL 04/2018 Right chest dialysis cather- ANGIOPLASTY OF BRACHIOCEPHALIC TRUNK OR BRANCH WITH TRANSLUMINAL BALLOON PERCUTANEOUS FOR AVF OR GRA ANKLE SURGERY Right plate in ankle EXTRACTION TOOTH Social History: he reports that he quit smoking about 5 years ago. His smoking use included cigarettes. He started smoking about 35 years ago. He has a 29.8 pack-year smoking history. He quit smokeless tobacco [...] Sig: Take 2 tablets by mouth daily. CUSTOM MEDICATION Sig: Labs to be obtained: 1- Tacrolimus level, trough - collect twice weekly until 09/24/23, then weekly until 10/08/23, them once every two weeks there after. 2- Itraconazole level - obtain once between 09/14-09/18. 3- Chem 6 - Obtain weekly while on itraconazole Fax results to: Dr. White - [phone] Transplant Neph - [phone] Gabapentin 400 MG capsule Sig: Take 1 capsule by mouth at bedtime. Itraconazole 10 MG/ML Solution Sig: Take 10 mL by mouth every 12 hours. Mycophenolate sodium (MYFORTIC) [address] tablet Sig: Take 1 tablet by mouth every 12 hours. Sulfamethoxazole-trimethoprim 800-160 MG per tablet Sig: Take 1 tablet by mouth three times a week. Tacrolimus 0.2 MG Pack Sig: Mix 1 packet (0.2 mg) and take by mouth every Thursday, , Thursday. Tamsulosin HCl 0.4 MG capsule Sig: Take 1 capsule by mouth daily. amLODIPine 5 MG tablet Sig: Take 1 tablet by mouth daily. aspirin 81 MG Chew Tab chewable tablet Sig: Chew 1 tablet daily. Last refill from our office. Medication can be purchased over the counter going forward. faMOTIdine 20 MG tablet Sig: Take 1 tablet by mouth 2 times daily. magnesium oxide 400 (240 Mg) MG Sig: Take 2 tablets by mouth daily. melatonin 3 MG tablet Sig: Take [...] lip and tongue swelling. Review of Systems: As noted in the HPI. Physical Exam: Vitals: 01/16/2455 BP: 145/70 Resp: Temp: 97.7 F (36.5 C) SpO2: 96% O2 Device: nasal cannula (01/16/2455) Flow (L/min): 4 (01/16/2455) Gen: Alert, Awake, NAD Eyes: PERRLA, EOMI, no icterus ENT: MMM, trachea midline Resp: + diminished lung sound on RLL, normal respiratory effort Cardio: RRR, normal S1, S2, no M/R/G. + 1 JENSEN through midcalf. GI: Mildly distended, + hepatomegaly, BS present MSK: No joint effusions or erythema: Skin: No jaundice or rash Neuro: public health professor 3-7, 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 Strength grossly equal in muscle groups of the bilateral UEs and LEs. Psych: Ox3, appropriate affect and cognition Data Review: Additional Labs: Imaging: ECG Impression/Plan: George Styles is a 53 y.o. 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 Acute Hypoxic Respiratory Insufficiency Bilateral JENSEN R Pleural Effusion Patient requiring 3-4L NC last admission but was able to be weaned off O2 at home. Differential includes fluid overload secondary to portal hypertension in the setting liver transplant, new onset heart failure, pneumonia, PE. Less likely repeat of prior histo infection given patient has been on itraconazole at home. Originally planned to get a TTE and liver ultrasound outpatient. 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 Was due to have a repeat CT chest that looks like was never completed. Continuing home itraconazole 100 mg b.i.d. Hx of Kidney Transplant: Patient is s/p combined liver/kidney transplant in 04/13/20. Prior to presentation, patient takes tacrolimus 0.2 mg Thursday, , Thursday and mycophenolate 360mg BID for immunosuppression. Baseline creatinine appears to be 1.1-1.4, though variable. CMV serum PCR negative, BK serum negative, EBV negative previously Current immunosuppression: tacrolimus 0.2 mg every Thursday, , Thursday and mycophenolate 360mg BID Tac trough pending Not on Bactrim per patient Hyperbilirubinemia, elevated INR in the setting of Liver Transplant Liver doppler as above IS as above Chronic Medical Conditions Essential Hypertension- controlled - continue home amlodipine 5mg CAD: non-obstructive CAD on [facility] 2018. - continue home aspirin 81mg daily Gout: continue home allopurinol 200mg daily BPH: continue home flomax 0.4mg daily Complexity. Obesity Body mass index is 32.8 kg/m . - Follow with PCP for dietary and lifestyle modifications. Any conditions listed below are present on admission unless otherwise specified. . DVT prophylaxis with lovenox Disposition: admitted to [facility] Code status is Full Staffed with Timothy Fu MD Internal Medicine PGY1 Attending Physician Addendum I saw and personally [...] was initially admitted to the hospital on 01/16/2024 for an initial diagnosis of Pleural effusion on right [J90]. Transplant Physician: Morgan Harris, Erma Roe, Melania Pierson, Luisa Steven, Renee Rivera, Daisha Max Framing Mill Operator: José Miguel Garnica All Txt: 04/13/2020 (Kidney), 04/13/2020 (Liver) Current I/S Meds: Current Immunosuppressive Medication(s) Immunosuppressive Agents Mycophenolate sodium (MYFORTIC) tablet DR 360 mg 360 mg, Oral, 2 TIMES DAILY (Solid Organ Transplant), Give on an empty stomach. Swallow tablet whole; do not crush, split or chew. Contact pharmacy if alternate route or dose is needed. tacrolimus (PROGRAF) susp 0.2 mg 0.2 mg, Oral, CUSTOM FREQUENCY, Caution check route of administration. For sublingual administration, place liquid under tongue and allow absorption. LABS Lab Results Component Value Date WBC 3.62 (L) 01/16/2024 HGB 12.1 (L) 01/16/2024 PLATELET 155 01/16/2024 Lab Results Component Value Date SODIUM 139 01/16/2024 POTASSIUM 4.0 01/16/2024 CHLORIDE 108 01/16/2024 CO2 24 01/16/2024 BUN 19 01/16/2024 CREATSERUM 1.04 01/16/2024 GLUCOSE 95 01/16/2024 Lab Results Component Value Date CALCIUM 8.5 (L) 01/16/2024 PHOSPHORUS 4.1 01/16/2024 Lab Results Component Value Date CREATSERUM 1.04 01/16/2024 CREATSERUM 1.3 01/08/2024 CREATSERUM 1.19 01/01/2024 CREATSERUM 1.3 12/25/2023 CREATSERUM 5.05 (H) 11/19/2018 I/S levels: No results found for: CYCLOSPORIN , CYCLOSPORIN2 , [id number] , CYCLORAND No results found for: SIROLIMUS , RAPAMUNE , RAPAMYCIN No results found for: EVEROLIMUS , EVRLMSTRGH , EVERTRGHMANE , EVRLMSRND Lab Results Component Value Date TACROLIMUS 5.7 01/16/2024 TACROTRGHMAN 5.2 01/08/2024 Initially, when received call from outside hospital impression was that of pneumonia given shortness of breath in the setting of immunosuppressed state. On my examination and after discussion with the patient, it appears patient has been having insidious worsening of shortness of breath which is worse on exertion. Patient describes orthopnea and PND. My examination patient has lower extremity edema which he states has been getting worse over the last few weeks. Based on these data, initial impression is that of possibly congestive heart failure as opposed to PE. Patient states that this shortness of breath has been slowly increasing over time as opposed to abruptly. Based on these data will workup congestive heart failure. Additionally obtaining imaging per Infectious Disease request in chart. Kevin Sage MD Pager [phone] documented in this encounter [facility] 01-12-2024 History of Present illness Narrative [facility] RX OUTREACH ADVANCED: Call Information: Date and Time of Contact: 01/12/2024 3:12 PM Method of Contact: By Phone Contact Type: Prescriptions Contactor: [facility] Contactee: Patient Contact Outcome: Call back later and Follow-up (pt said he still has over 14d/s on hand ; pt okay with a call back in 2 weeks ; pt knows to call back if meds are needed before then) Shipping/Pickup: Medication Name: Prograf 0.2 MG Contact Info: Specialty ([place]) [phone] [facility] [phone] [facility] [phone] Raheem [phone] Bedside Delivery ([facility]) [phone] [facility] RX OUTREACH ADVANCED: Call Information: Date and Time of Contact: 01/25/2024 10:23 AM Method of Contact: By Phone Contact Type: Prescriptions Contactor: [facility] Contactee: Patient Contact Outcome: Left message (prograf myco) Contact Info: Specialty ([place]) [phone] [facility] [phone] [facility] [phone] Raheem [phone] Bedside Delivery ([facility]) [phone] documented in this encounter [facility] 01-12-2024 History of Present illness Narrative [facility] RX OUTREACH ADVANCED: Call Information: Date and Time of Contact: 01/12/2024 3:12 PM Method of Contact: By Phone Contact Type: Prescriptions Contactor: [facility] Contactee: Patient Contact Outcome: Call back later and Follow-up (pt said he still has over 14d/s on hand ; pt okay with a call back in 2 weeks ; pt knows to call back if meds are needed before then) Shipping/Pickup: Medication Name: Prograf 0.2 MG Contact Info: Specialty ([place]) [phone] [facility] [phone] [facility] [phone] Ra[facility]em [phone] Bedside Delivery ([facility]) [phone] [facility] RX OUTREACH ADVANCED: Call Information: Date and Time of Contact: 01/25/2024 10:23 AM Method of Contact: By Phone Contact Type: Prescriptions Contactor: [facility] Contactee: Patient Contact Outcome: Left message (prograf myco) Contact Info: Specialty ([place]) [phone] [facility] [phone] [facility] [phone] Raheem [phone] Bedside Delivery ([facility]) [phone] [facility] RX OUTREACH ADVANCED: Call Information: Date and Time of Contact: 01/27/2024 10:19 AM Method of Contact: By Phone Contact Type: Prescriptions Contactor: [facility] Contactee: Patient Contact Outcome: Left message (myco prograf) Contact Info: Specialty ([place]) [phone] [facility] [phone] [facility] [phone] Ra[facility]em [phone] Bedside Delivery ([facility]) [phone] documented in this encounter [facility] 01-12-2024 History of Present illness Narrative [facility] RX OUTREACH ADVANCED: Call Information: Date and Time of Contact: 01/12/2024 3:12 PM Method of Contact: By Phone Contact Type: Prescriptions Contactor: [facility] Contactee: Patient Contact Outcome: Call back later and Follow-up (pt said he still has over 14d/s on hand ; pt okay with a call back in 2 weeks ; pt knows to call back if meds are needed before then) Shipping/Pickup: Medication Name: Prograf 0.2 MG Contact Info: Specialty ([place]) [phone] [facility] [phone] [facility] [phone] Ra[place]em [phone] Bedside Delivery ([facility]) [phone] [facility] RX OUTREACH ADVANCED: Call Information: Date and Time of Contact: 01/25/2024 10:23 AM Method of Contact: By Phone Contact Type: Prescriptions Contactor: [facility] Contactee: Patient Contact Outcome: Left message (prograf myco) Contact Info: Specialty ([place]) [phone] [facility] [phone] [facility] [phone] Ra[place]em [phone] Bedside Delivery ([facility]) [phone] [facility] RX OUTREACH ADVANCED: Call Information: Date and Time of Contact: 01/27/2024 10:19 AM Method of Contact: By Phone Contact Type: Prescriptions Contactor: [facility] Contactee: Patient Contact Outcome: Left message (myco prograf) Contact Info: Specialty ([place]) [phone] [facility] [phone] [facility] [phone] Ra[place]em [phone] Bedside Delivery ([facility]) [phone] [facility] RX OUTREACH ADVANCED: Call Information: Date and Time of Contact: 02/01/2024 3:22 PM Contact Type: Prescriptions Contactor: [facility] Contactee: Patient Contact Outcome: Left message Shipping/Pickup: Medication Name: Mycophenolate 360mg and Prograf 0.2mg Pack Contact Info: Specialty ([place]) [phone] [facility] [phone] [facility] [phone] Raheem [phone] Bedside Delivery ([facility]) [phone] documented in this encounter [facility] 01-06-2024 History of Present illness Narrative Associated [...] The neurologist wanted to send him to [facility] neurology but it is out of [...] 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) documented in this encounter [facility] 10-06-2023 History of Present illness Narrative [...] ; Prograf 0.2 MG Contact Info: Specialty ([place]) [phone] [facility] [phone] [facility] [phone] Ra[facility]em [phone] Bedside Delivery ([facility]) [phone] [facility] RX OUTREACH ADVANCED: Call Information: Date and Time of Contact: 10/23/2023 2:00 PM Method of Contact: By Phone Contact Type: Prescriptions Contactor: [facility] Contactee: Patient Contact Outcome: Left message and Call back later Shipping/Pickup: Medication Name: Mycophenolate 360mg and Prograf 0.2mg Contact Info: Specialty ([place]) [phone] [facility] [phone] [facility] [phone] [facility] [phone] Bedside Delivery ([facility]) [phone] documented in this encounter [facility] 09[facility]11-2023 Miscellaneous Notes Pt discharged home [...] the oxygen during the night. pt will sisal picker his oxygen from [facility], 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 This RN [...] Patient seen ambulating in the velazquez with BOW MAKER GIFT WRAPPING. Patient was mildly short of breath on [...] 130/4.2/--/1.4/-- (09/04 615-09/04 957) Bun/Creat/Cl/CO2/Glucose: 15/1.22/104/18/159 (09/04 0615-09/04 0957) ABG shows respiratory alkalosis in setting of hypoxemia. (7.48/30//22) Relevant Microbiologic Data: CMV, EBV, BK, RVP, [...] & HR 114. Messaged Mainor Loomis, via [employer] secure chat, Temp 100.8. His tylenol order [...] O2 supplement overnight to 5 L, but 10/5 CXR does not show any acute findings. [...] short period of time. 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 Episode of [...] gross motor deficit. Lab Data: WBC/Hgb/Hct/Plts: 4.36/12.8/39.6/222 (10/05 0402) Na/K+/Phos/Mg/Ca: 136/4.1/--/1.6/-- (09/03 402) Bun/Creat/Cl/CO2/Glucose: 17/1.20/104/24/112 (09/03 [...] Critical Care Medicine Message [employer]or Loomis, via [employer] secure chat, Good evening, just an FYI, [...] short period of time. 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 This morning, [...] [address] Loera here also (case technician) Dr. Diaz aware of pt's increased [...] Medicine-Pediatrics, PGY-2 Mr. Styles was admitted to [address] [place] [address]. On admission to [facility], from home a [...] when available. documented in this encounter [facility] 09-11-2023 History of Present illness Narrative Provided follow-up emotional and spiritual support. Patient shared about rosemary of discharge and looking forward to seeing family Molding Associate provided: - Supportive presence - Active listening - Validation of feelings/emotions Patient encouraged to request a journeyman millwright as needed. Chaplains are available in-house 24 hours a day and 7 days a week. For urgent matters in [facility], please page [phone]. If the request is not urgent, please enter a consult. Consults are responded to within 24 hours. Senior Staff Molding Associate Angie Singh Mdiv, [facility] Kirk [phone] [email or web address] 22/06 On-call [place]: [phone] 22/06 Pager [facility], and Brock Hernandez Pager [phone] 09/11/23 1430 Clinical Encounter Type Visited With Patient Visit Type Follow-up Pastoral Time Spent 15 min Referral Other (See Comment) (rounding) Spiritual Assessment Spiritual Observation Spirituality helpful Emotional Observation Coping well Hope Observation Specific hope focus Support Observation By Family Interventions Provided Active listening;Supportive presence Facilitated Verbalization of feelings Explored Expectations Basin Cleaner Education Basin Cleaner Service Available Yes Educated Patient Plan of Care Continue Visiting PRN Images from the original note were not included. [facility] Note: Non-Verbal Med Rec [facility] received the following discharge prescription(s): Total cost is $0. I have reviewed the Discharge Rx Reconciliation Report. The discharge prescription(s) will be delivered to the patient on 09/11/2023. Dimitrios Gurrola RPh,PharmD Specialty ([place]) [phone] Jakob [phone] Jakob Bedside Delivery [phone] [facility] [phone] [facility] Bedside Delivery [phone] Raheem [phone] Raheem Bedside Delivery [phone] [place] [phone] [place] [phone] Internal Medicine Daily Progress Note Patient: George Styles, 1970, [id number] Physician: Evan Kelly MD, PGY-1, TM1 service Subjective/Interval History: Patient continues to require oxygen overnight for desaturations. With insurance limitations, only accepting agency to provide home oxygen backed out. After calling them to discuss, Lynn stated she would be willing to have patient drive to their facility to sisal picker supplies, however they close at 5pm. 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 - continue home aspirin [...] 5.05 (H) 11/19/2018 Kevin Sage MD, SERA Acquisition Consultant of Clinical Medicine [facility] Images from the original note were not included. Final Discharge Planning and Transportation Final Discharge Planning Discharge Disposition: Home Services at Discharge: Outpatient clinical services (ie: lab draws, transfusions, injectables) ([facility]xygen by [facility]) Selected Continued Care - Admitted Since 08/28/2023 Durable Medical Equipment Coordination complete. Service Provider Selected Services Address Phone Fax Patient Preferred [facility] Durable Medical Equipment [address] [facility] [place] [address] Internal Comment last updated by Lora Alexander RN 09/10/2023 2745 Correct contact information: [employer] [address] [place] [address] [place] [address] heel cementer machine- you do not need to call at discharge, I already notified the company. Addendum [phone] [facility] notified this CM they are out of patient's insurance area and will not be able to service this patient at time of discharge. Provider notified. Addendum [phone] Dr Kelly called [facility] spoke to Lynn and she said they are willing to accept patient if the patient would drive to the [place] office and sisal picker the supplies. Patient is willing to [...] CM was not contacted related to barriers Loar Colón RN, MSN, CCM, CMCN Clinical Jump Roll Operator- R10 Transplant #[phone] Department of Pharmacy Transplant Note Patient: George [...] dose adjustment Name: Matt Kramer RPh,PharmD Phone: [phone] Date/Time: 09/10/2023 11:33 AM This CM sent referral via mPATH for O2 concentrator to 4 agencies Start date today [facility] [employer] Addendum [phone] One accepting company reserved in [place] [address] [facility] [address] [place] [phone] Lora Colón RN, MSN, CCM, [facility] Clinical Jump Roll Operator- R10 Transplant #[phone] NUTRITION FOLLOW-UP Nutrition Plan of Care: 1. Continue current diet order. 2. No oral supplements warranted at this time. 3. Monitor for significant weight changes. Monitor GI, skin integrity. 4. Monitor and encourage po intakes with goal of average po being 75-100%. 5. eyewear manufacturing tech to follow. ___ Met with patient today [...] time. Will continue to monitor. RHIANNON [place]R Pager:[phone] Transplant Infectious Disease (Team 3) Progress Note [...] sign off. Please Epic message or page [phone] with questions. Evan White DO Transplant Infectious Diseases Internal Medicine Daily Progress Note Patient: George Styles, 1970, [id number] Physician: Evan Kelly MD, PGY-1, TM1 service [...] 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 - continue home aspirin [...] to follow. Please Epic message or page [phone] with questions. Evan White DO Transplant Infectious Diseases Internal Medicine Daily Progress Note Patient: George Styles, 1970, [id number] Physician: Laurel Serrano MD, PhD, PGY-3, TM1 [...] Device: room air (09/08/231951) Flow (L/min): 1 (10/10/23 1008) Gen: Alert, Awake, laying flat in [...] 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 His anvik kidney disease was noted to be presumed [...] 50mg BID CAD: non-obstructive CAD on [facility] 2019. - continue home aspirin [...] Daily Progress Note Patient: George Styles, 1970, [id number] Physician: Evan Kelly MD, PGY-1, TM1 service [...] 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 His anvik kidney disease was noted to be presumed [...] -PO itraconazole liquid 200mg BID Q8H until 10/8, then BID -trough in 10-14d (may be [...] 50mg BID CAD: non-obstructive CAD on [facility] 2018. - continue home aspirin [...] 5.05 (H) 11/19/2018 Kevin Sage MD, SERA Acquisition Consultant of Clinical Medicine [facility] Transplant Infectious Disease [...] to follow. Please Epic message or page [phone] with questions. Ann Marie Haskins MD PGY-4, [...] he continues to improve. Please message via [employer] secure chat or page with any questions or concerns. Evan White DO Acquisition Consultant Division of Infectious Disease Transplant Infectious Disease [...] to follow. Please Epic message or page [phone] with questions. Evan White DO Transplant Infectious Diseases Images from the original note were not included. Pulmonary/Critical Care Medicine Daily Progress Note Reason for Consultation: bronch for infectious workup Requesting Physician: Dr. Sage CURRENT HOSPITALIZATION: Admit Date: 08/28/2023 [facility] Hospital LOS: 9 days Impression [...] and interpreted reviewed the radiographic data in [employer] It. 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 - continue home aspirin [...] CREATSERUM 5.05 (H) 11/19/2018 Kevin Sage MD, FASN Acquisition Consultant of Clinical Medicine [facility] Images from the original note were not included. Pulmonary/Critical Care Medicine Daily Progress Note Reason for Consultation: bronch for infectious workup Requesting Physician: Dr. Sage CURRENT HOSPITALIZATION: Admit Date: 08/28/2023 [facility] Hospital LOS: 8 days Impression [...] and interpreted reviewed the radiographic data in IHIS/[employer] It. Acute Occupational Therapy Evaluation Prior to Admission [...] Assessment: Transfer Assessment: Sit to Stand Transfer [place] Level: Sit->Stand: independent Skilled Intervention/Details: Sit->Stand: x1 from EOB, x1 from toilet Stand to Sit Transfer [place] Level: Stand->Sit: independent Skilled Intervention/Details: Stand->Sit: x1 to toilet, x1 to EOB Functional Mobility: Functional Mobility [place] Level: Functional Mobility/Gait: independent Ambulation Distance (Feet): 20 Skilled Intervention/Details - Functional Mobility/Gait: pt performed functional mobility to/from RR w/ no overt LOB Outcome Score(s): CURRENT [facility] Daily Activity Inpatient Short Form Putting on/Taking Off Lower Body Clothin - A Little Assistance Bathin - A Little Assistance Toiletin - A Little Assistance Putting on/Taking Off Upper Body Clothin - No Assistance Groomin - No Assistance Eatin - No Assistance CURRENT [facility] Activity Raw Score: 21 CURRENT -[facility] Activity Functional Limitation/Modifier: 32.79% Currently [...] Acute Physical Therapy Evaluation Prior to Admission [facility] score(s): PRIOR LEVEL AM-PAC Mobility Raw [...] Intact Mobility Assessment: Supine to Sit Mobility [place] Level: Supine->Sit: modified independence Bed Features/Set-up: Supine->Sit: Head of bed elevated Sit to Supine Mobility [place] Level: Sit->Supine: not tested Balance: Sitting Balance [...] environment. Transfer Assessment: Sit to Stand Transfer [place] Level: Sit->Stand: independent Skilled Intervention/Details: Sit->Stand: From EOB x 2 without difficulty. Stand to Sit Transfer [place] Level: Stand->Sit: independent Assistive Device: Stand->Sit: armed chair Skilled Rationale: Verbal cues, Positioning Gait/Functional Mobility: Gait Assessment [place] Level: Gait: stand-by assist Assistive Device: Gait: rollator Ambulation Distance (Feet): 400 Gait Deviations Identified: decreased grace, decreased gait speed Gait Skilled Rationale: verbal, upright posture, increase step length, increase foot clearance Skilled Intervention/Details - Gait: Reasonable foot clearnce without loss of balance but endorsing dyspnea as 6-7/10. Stairs: Stairs Assessment [place] Level: Stair Negotiation: not tested Outcome Score(s): CURRENT -[facility] Basic Mobility Inpatient Short Form [...] a railin - A Little Assistance CURRENT [facility] Mobility Raw Score: 21 CURRENT [facility] Mobility Functional Limitation/Modifier: 28.97% Currently Impaired in [...] Acute PT Goals Plan of Care by Raheem Sutherland PT at 09/05/2023 9:25 AM Version [...] Evaluation (Low) Time Entry: 28 Evaluating Therapist: Raheem Sutherland PT Additional Details: PT Co-Eval/Treatment Information [...] Daily Progress Note Patient: George Styles, 1970, [id number] Physician: Evan Kelly MD, PGY-1, TM1 service [...] 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 - continue home aspirin [...] 5.05 (H) 11/19/2018 Kevin Sage MD, SERA Acquisition Consultant of Clinical Medicine [facility] Transplant Infectious Disease [...] to follow. Please Epic message or page [phone] with questions. Evan White DO Transplant Infectious Diseases Images from the original note were not included. 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 - continue home aspirin [...] P 450 system Kevin Sage MD, MADISONN Acquisition Consultant of Clinical Medicine [facility] ERT Note: ERT called [...] MD, PhD Internal Medicine and Pediatrics PGY-3 [facility] Brief plan of care update: Called [...] MD, PhD Internal Medicine and Pediatrics PGY-3 [facility] Transplant Infectious Disease (Team 3) Progress [...] to follow. Please Epic message or page [phone] with questions. Evan White DO Transplant Infectious Diseases Internal Medicine Daily Progress Note Patient: George Styles, 1970, [id number] Physician: Evan Kelly MD, PGY-1, TM1 service [...] 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 - continue home aspirin [...] 5.05 (H) 11/19/2018 Kevin Sage MD, SERA Acquisition Consultant of Clinical Medicine [facility] Internal Medicine Daily Progress Note Patient: George Styles, 1970, [id number] Physician: Evan Kelly MD, PGY-1, TM1 service [...] 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 - continue home aspirin [...] 5.05 (H) 11/19/2018 Kevin Sage MD, MADISONN Acquisition Consultant of Clinical Medicine [facility] Progression of Care [...] Lora Colón RN, MSN, CCM, CMCN Clinical Jump Roll Operator- R10 Transplant #[phone] Made introductory visit with patient. Provided emotional and spiritual support. Patient shared about: - Source of Rose[place]: Camping/Fishing/Family - Spirituality/Orthodoxy Affiliation: raised Moravian - Family Support/history - Experience with illness/hospital course - Hopes for healing/future Molding Associate provided: - Supportive presence - Active listening - Validation of feelings/emotions - Pledged prayer Patient encouraged to request a journeyman millwright as needed. Chaplains are available in-house 24 hours a day and 7 days a week. For urgent matters in [facility], please page [phone]. If the request is not urgent, please enter a consult. Consults are responded to within 24 hours. Senior Staff Molding Associate Angie Singh Mdiv, [facility] Kirk [phone] [email or web address] 22/06 On-call [place]: [phone] 22/06 Pager ,KIKE, and Brock Hernandez Pager [phone] 09/02/23 1116 Clinical Encounter Type Visited With Patient Visit Type Introduction Pastoral Time Spent 15 min Referral Other (See Comment) (rounding) Spiritual Assessment Spiritual Observation Spirituality helpful Emotional Observation Coping well Hope Observation Specific hope focus Support Observation By Family Interventions Provided Active listening;Supportive presence Facilitated Verbalization of feelings Explored Expectations Basin Cleaner Education Basin Cleaner Service Available Yes Educated Patient Outcomes Patient Outcomes Reduced distress Plan of Care Continue Visiting PRN NUTRITION RISK SCREENING NOTE Nutrition Plan of Care: 1. Continue current diet order. 2. No oral supplements warranted at this time. 3. Monitor for significant weight changes. Monitor GI and skin integrity. 4. Monitor and encourage po intakes with goal of average po being 100%. 5. eyewear manufacturing tech to follow. George Styles is a 53 y.o. 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 His post-transplant course was noteworthy for nephrostomy tube (05/17/2022-09/10/2022) due to concern for ureteral stone. He presents as a direct admission for fever, cough, for infectious workup. Pt unavailable and information obtained via chart review Shirring Machine Operator Screening Pt's appetite is good. Pt with [...] with meds Food Allergies reviewed:Shellfish Cultural or Orthodoxy Restrictions/Preferences: None GI: Last Bowel Movement: 09/01/23 [...] time. Will continue to monitor. RHIANNON [place]R Pager:[phone] Internal Medicine Daily Progress Note Patient: George Styles, 1970, [id number] Physician: Evan Kelly MD, PGY-1, TM1 service [...] 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 - continue home aspirin [...] as outlined above. Kevin Sage MD Pager [phone] Summary: Pharmacy Med Rec Department of Pharmacy [...] Refills: 0 Provider: Zuly Bruno NP Pharmacy: [facility] [place] Other Comments: Patient reported his Last Home Dose of mycophenolate & tacrolimus was on 08/28/23 at 0900. Patient reported he was taking Bactrim and benzonatate for fevers and a cough he was having. Please feel free to contact me with any further questions. Name: Heidy Chatman Phone #: [phone] Date/Time: 09/01/2023 2:01 PM Time Spent: 15 minutes Associated attestation - Matt Kramer RPh,PharmD - 09/01/2023 2:28 PM EDT Department of Pharmacy Admission Medication Reconciliation Note Patient: George Styles Room/Bed: 1062/A I have reviewed the home medication list with the Intrusion Analyst. All changes to the home medication list have been updated in IHIS. Updated X RAY TECHNOLOGIST Med List: Prior to Admission Medications Prescriptions [...] questions. Name: Matt Kramer RPh,PharmD Phone #: [phone] Date/Time: 09/01/2023 2:28 PM Transplant Infectious Disease [...] to follow. Please Epic message or page [phone] with questions. Evan White DO Transplant Infectious Diseases Internal Medicine Daily Progress Note Patient: George Styles, 1970, [id number] Physician: Evan Kelly MD, PGY-1, TM1 service [...] 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 - continue home aspirin [...] 5.05 (H) 11/19/2018 Kevin Sage MD, SERA Acquisition Consultant of Clinical Medicine [facility] Discharge Planning Patient Assessment [...] Yes Name and Contact information: Gian Styles ([phone]) Reviewed and Updated in Demographics? : Yes Outpatient Providers Does patient have a primary care physician? : Yes When was the patient's last PCP visit?: > 30 days Does the patient follow any specialists?: No Reviewed and updated Care Team?: Yes Patient Care Team: Zuly Bruno CNP as PCP - General Environment/Caregivers Is the patient from a facility or fpc?: No Patient lives with: Alone Living Environment: [...] patient on Anticoagulation? : No [id number] [place] [address] - [address] [facility] [address] [id number] [employer] Does the patient or banking representative express financial concerns? : No Employed?: Disabled Coping/Stress Concerns about patient s coping and stress?: No Concerns about patient s caregiver s coping and stress?: No Values and Beliefs Cultural or zoroastrianism practices that may impact discharge planning and/or [...] Plan 1. Identified self and role as Jump Roll Operator. 2. Confirmed and updated demographics and treatment team. 3. Jump Roll Operator will continue to follow with medical team/pt for any other additional discharge needs. Kasandra DON RN [facility] [phone] *Please note I am float and work Thursday and Thursday every other week. Please call [phone] for assist in my absence. Internal Medicine Daily Progress Note Patient: George Styles, 1970, [id number] Physician: Evan Kelly MD, PGY-1, TM1 service [...] 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 - continue home aspirin [...] 5.05 (H) 11/19/2018 Kevin Sage MD, SERA Acquisition Consultant of Clinical Medicine [facility] Internal Medicine Daily Progress Note Patient: George Styles, 1970, [id number] Physician: Laurel Serrano MD, PhD, PGY-3, TM1 [...] 544) Na/K+/Phos/Mg/Ca: 133/4.5/--/1.7/-- (08/29 544) Bun/Creat/Cl/CO2/Glucose: 19/1.55/105/20/108 (09/30 0544) Lab Results Component Value Date SPGRVTYUR [...] 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 - continue home aspirin 81mg daily, atorvastatin 20mg daily Gout: continue home allopurinol 200mg daily BPH: continue home flomax 0.4mg daily DVT PPX: SQH Code Status: Full Code Disposition: Pending clinical course. Anticipate eventual discharge home. Discussed with team and attending, Kevin Sage MD, on rounds. Signed, Laurel Serrano MD, PhD documented in this encounter [facility] 09-10-2023 Hospital Discharge instructions [...] a sleep doctor. You will need to sisal picker the oxygen concentrator when you leave [...] healthy foods. documented in this encounter [facility] 09-01-2023 Consult note Associated Order (s): IP CONSULT TO PULMONOLOGY Pulmonary Medicine Inpatient Consultation Reason for Consultation: bronch for infectious workup Requesting Physician: Dr. Sage Pulmonary Attending Physician: Dr. Diaz CURRENT HOSPITALIZATION: Admit Date: 08/28/2023 [facility] Hospital LOS: 4 days Impression/Recommendations: [...] short period of time. 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 Other histories as documented in the [...] contacts. He traveled to [place] to family reunion in May. REVIEW OF SYSTEMS A complete [...] Surgeon: Enzo Heart DO; Location: [facility] INTERVENTIONAL RADIOLOGY (VIR) LIVER TRANSPLANT, ORTHOTOPIC N/A 04/12/2020 Laterality: N/A; Surgeon: LU Palma; Location: [facility] SAME DAY SURGERY MAIN OR KIDNEY TRANSPLANT W/O SENECA-CAYUGA NEPHRECTOMY N/A 04/12/2020 Laterality: N/A; Surgeon: LU Palma; Location: [facility] SAME DAY SURGERY MAIN OR OTHER [...] Alamo MD I can be reached via [employer] secure message (preferred) or Pager #[phone] documented in this encounter [facility] 08-28-2023 History and physical note Images from the original note were not included. Internal Medicine Admission History & Physical Patient: George Styles, 1970, [id number] Physician: Aric Turner MD, PGY1, Pager #[phone], [facility] service Date of face to face patient [...] So he went to see the transplant blow machine tender starch spraying. He was found elevated Cr and asked [...] Appetite is ok now. Urine is about 7179-2989 ml every day. Stool every day, no diarrhea or watery stool. Noperson around has similar symptom. No travel history. Medical/Surgical History: Past Medical History: Diagnosis Date Acute renal failure CAD (coronary artery disease) Cirrhosis Dialysis patient T, Th, - Started 06/01/2018 End stage renal disease 06/01/2018 Essential hypertension, benign Hepatic encephalopathy History of blood transfusion Liver cirrhosis Past Surgical History: Procedure Laterality Date PLACEMENT NEPHROSTOMY CATHETER PERCUTANEOUS W/ IMAGE GUIDANCE 05/17/2022 Surgeon: Enzo Heart DO; Location: [facility] INTERVENTIONAL RADIOLOGY (VIR) LIVER TRANSPLANT, ORTHOTOPIC N/A 04/12/2020 Laterality: N/A; Surgeon: LU Palma; Location: [facility] SAME DAY SURGERY MAIN OR KIDNEY TRANSPLANT W/O SENECA-CAYUGA NEPHRECTOMY N/A 04/12/2020 Laterality: N/A; Surgeon: LU Palma; Location: [facility] SAME DAY SURGERY MAIN OR OTHER [...] 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 - continue aspirin 81mg [...] Erma Roe, Melania Pierson, Luisa Steven, Renee Daisha Leone Framing Mill Operator: José Miguel Garnica All Txt: 04/13/2020 [...] results found for: CYCLOSPORIN , CYCLOSPORIN2 , [id number] , CYCLORAND No results found for: SIROLIMUS [...] Rest as above. Kevin Sage MD Pager [phone] documented in this encounter [facility] 08-28-2023 History of Present illness Narrative Images from the original note were not included. 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 Framing Mill Operator: Anayeli Burt Date of Liver Transplant: 04/13/2020 (Kidney), 04/13/2020 (Liver) 3 years 4 months post Liver/Kidney Transplant Primary Disease: Hypertensive Nephrosclerosis Transplant Route Sales Associate: Erma Roe/ Daisha Max Primary Care physician: [...] None Specified Preferred Lab: [facility] Change in lab frequency / new [...] ADDITIONAL INFORMATION: None Specified, [id number] [place] [address] - [address] [facility] [address] [facility] [address] [facility] [address] [facility] [address] [id number] [place] [address] [address] [facility] [address] [facility] [address] [facility] Jakob [address], [address] [place] [address] ROS and SCREEN: Chest Pain: negative Cough: [...] PHYSICIAN: I saw George Styles at the [facility] on 08/28/2023. Patient is a 53 y.o. 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 Steve Latham MD communications consultant Division of Nephrology [facility] documented in this encounter [facility] 08-28-2023 Instructions Mainor Busby RN - 08/28/2023 2:15 PM EDT - Admission for fevers, cough, and night sweats documented in this encounter [facility] 08-19-2023 History of Present illness Narrative [facility] RX OUTREACH ADVANCED: Call Information: Date and Time of Contact: 08/19/2023 2:52 PM Method of Contact: By Phone Contact Type: Prescriptions Contactor: [facility] Contactee: Patient Shipping/Pickup: Medicare B Refill?: No Medication Name: Tacro 0.5mg Delivery Method: Air Delivery Location: Home Signature Required: No Mailing/Pickup Date: 08/25/2023 Shipping Address: [address] [place] [address] 179 Contact Info: Specialty ([facility]) [phone] [facility] [phone] [facility] [phone] [facility] [phone] Bedside Delivery ([facility]) [phone] documented in this encounter [facility] 06-12-2023 History of Present illness Narrative Images from the original note were not included. George Styles is a 53 y.o. 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 No longer follows with a local blow machine tender starch spraying. History of Present Illness: Since George was [...] and lab results. Rebeca Olsen MSN, RN, MAINTENANCE SHOP WELDER-BC, CCTN Certified Nurse Practitioner [facility] [address] [facility] [address] documented in this encounter [facility] 06-12-2023 Instructions JEANNA Hess - 06/12/2023 3:00 PM EDT No change in immunosuppression. documented in this encounter [facility] 06-10-2023 History of Present illness Narrative [facility] OUTREACH ADVANCED: Call Information: Method of Contact: By Phone Contact Type: Prescriptions Contactor: [facility] Contactee: Patient Contact Outcome: Left message Shipping/Pickup: Medication Name: Mycophenolate sod 180 mg Contact Info: Specialty ([facility]) [phone] Jakob [phone] [facility] [phone] Raheem [phone] Bedside Delivery ([facility]) [phone] [facility] RX OUTREACH ADVANCED: Call Information: Date and Time of Contact: 06/12/2023 9:43 AM Method of Contact: By Phone Contact Type: Prescriptions Contactor: [facility] Contactee: Patient Contact Outcome: Left message and Follow-up Shipping/Pickup: Medicare B Refill?: No Medication Name: Myco 180 Contact Info: Specialty ([facility]) [phone] Jakob [phone] [facility] [phone] Raheem [phone] Bedside Delivery ([facility]) [phone] [facility] RX OUTREACH ADVANCED: Call Information: Date and Time of Contact: 06/12/2023 10:08 AM Method of Contact: By Phone Contact Type: Prescriptions Contactor: [facility] Contactee: Patient Shipping/Pickup: Medicare B Refill?: No Medication Name: Mycophenolate 180mg DR Delivery Method: Air Delivery Location: Home Signature Required: No Mailing/Pickup Date: 06/17/2023 Shipping Address: [address] [place] [address] Contact Info: Specialty ([facility]) [phone] Jakob [phone] [facility] [phone] Raheem [phone] Bedside Delivery ([facility]) [phone] documented in this encounter [facility] 04-13-2023 Note [facility] Subjective George Styles is a 53 [...] Legacy Encounter on (more content not included)... [facility] 03-12-2023 History of Present illness Narrative [facility] OUTREACH ADVANCED: Call Information: Date and Time of Contact: 03/12/2023 10:34 AM Method of Contact: By Phone Contact Type: Prescriptions Contactor: [facility] Contactee: Patient Shipping/Pickup: Medicare B Refill?: No Medication Name: Mycophenoloate sod 360 mg prednisone 5mg Delivery Method: Air Delivery Location: Home Signature Required: No Mailing/Pickup Date: 03/16/2023 Shipping Address: [address] [place] [address] Contact Info: Specialty ([facility]) [phone] [facility] [phone] [facility] [phone] Raheem [phone] Bedside Delivery ([facility]) [phone] [facility] RX OUTREACH ADVANCED: Call Information: [...] Required: No Mailing/Pickup Date: 03/19/2023 Shipping Address: [address] [place] [address] [address] Contact Info: Specialty ([facility]) [phone] [facility] [phone] [facility] [phone] [facility] [phone] Bedside Delivery ([facility]) [phone] documented in this encounter [facility] 03-10-2023 History of Present illness Narrative [facility] OUTREACH ADVANCED: Call Information: Date and Time of Contact: 03/10/2023 12:00 PM Method of Contact: By Phone Contact Type: Prescriptions Contactor: [facility] Contactee: Patient Contact Outcome: Left message and Call back later Shipping/Pickup: Medication Name: Mycophenolate ; Tacrolimus Contact Info: Specialty ([place]) [phone] [facility] [phone] [facility] [phone] Raheem [phone] Bedside Delivery ([facility]) [phone] documented in this encounter [facility] 03-10-2023 History of Present illness Narrative [facility] OUTREACH ADVANCED: Call Information: Date and Time of Contact: 03/10/2023 12:00 PM Method of Contact: By Phone Contact Type: Prescriptions Contactor: [facility] Contactee: Patient Contact Outcome: Left message and Call back later Shipping/Pickup: Medication Name: Mycophenolate ; Tacrolimus Contact Info: Specialty ([facility]) [phone] [facility] [phone] [facility] [phone] Raheem [phone] Bedside Delivery ([facility]) [phone] [facility] RX OUTREACH ADVANCED: Call Information: Date and Time of Contact: 03/12/2023 10:32 AM Method of Contact: By Phone Contact Type: Prescriptions Contactor: [facility] Contactee: Patient Contact Outcome: Left message Shipping/Pickup: Medication Name: Mycophenolate sodium (MYFORTIC) 180 MG Tab tacrolimus 0.5 mg Contact Info: Specialty ([place]) [phone] Jakob [phone] [facility] [phone] Raheem [phone] Bedside Delivery ([facility]) [phone] documented in this encounter [facility] 01-16-2023 History of Present illness Narrative -Referring Provider for today's consult: Daisha Max DO -Primary Care Provider: Zuly Bruno History of Present Illness George Styles is a 52 y.o. male who presents to the [facility] Transplant Hepatology Clinic today for [...] Surgeon: Enzo Heart DO; Location: [facility] INTERVENTIONAL RADIOLOGY (VIR) LIVER TRANSPLANT, ORTHOTOPIC N/A 04/12/2020 Laterality: N/A; Surgeon: LU Palma; Location: [facility] SAME DAY SURGERY MAIN OR KIDNEY TRANSPLANT W/O SENECA-CAYUGA NEPHRECTOMY N/A 04/12/2020 Laterality: N/A; Surgeon: LU Palma; Location: [facility] SAME DAY SURGERY MAIN OR OTHER [...] 0.3 12/29/2022 Explant Pathology Pathologic Diagnosis A. [place] liver, orthotopic liver transplant resection (1458 gram): [...] A/P with IV contrast (06/27/2022): 1. Both anvik kidneys are atrophic with improvement in right-sided [...] frequent nighttime urination, etc). Daisha Max DO Acquisition Consultant Gastroenterology, Hepatology and Nutrition [facility] Pager: [phone] Images from the original note were not included. 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 ADDITIONAL INFORMATION: None Specified [id number] [place] [address] - [address] [facility] [address] [facility] [facility] [address] [facility] [address] [facility] [place] [address] [id number] [place] [address] [address] [facility] [address] [facility] [address] [facility] [address], [address] [facility] [address] ROS and SCREEN: Chest Pain: negative Cough: [...] ADDRESS WITH PHYSICIAN: documented in this encounter [facility] 01-16-2023 Instructions José Miguel Garnica RN - 01/16/2023 9:40 AM EST - Labs Every 2 months - Discuss night time urination with your PCP - Schedule Colonoscopy through PCP - Follow up in 1 year documented in this encounter [facility] 09-10-2022 History of Present illness Narrative UROLOGY CLINIC NOTE Reason for Appointment: BPH with LUTS HPI: Patient is a 52 yo male with a DDRT to the [facility] in 2019. Nephrostomy tube placed 05/17/22 due [...] and no hydronephrosis. Some reflux up the anvik right ureter but good drainage of both transplant and anvik ureter to the bladder. Nephrostomy tube was [...] transplant, orthotopic (N/A, 04/12/2020); kidney transplant w/o anvik nephrectomy (N/A, 04/12/2020); and placement nephrostomy catheter [...] Negative for , diarrhea, constipation Genitourinary: See [place] Neurological: Negative for headaches. Lymph/Heme: Negative for [...] x 4, Normal strength. No edema. Skin: [place], warm, and dry. There are no rashes [...] and no hydronephrosis. Some reflux up the anvik right ureter but good drainage of both transplant and anvik ureter to the bladder. Nephrostomy tube was [...] MD 09/10/22 documented in this encounter [facility] 07-07-2022 History of Present illness Narrative [...] assisted off the table and escorted to receptionist telephone operator where they made a follow up. Associated Order(s): NEPHROSTOMY TUBE REMOVAL Post-Procedure Diagnose(s): Other hydronephrosis NEPHROSTOMY TUBE REMOVAL Date/Time: 07/07/2022 2:10 PM Performed by: Ryan Yepez MD Authorized by: Ryan Yepze MD Nephrostomy tube removal: Right Pre-procedure details: [...] to have transplant ureter with anastomosis to anvik right ureter. Nephrostogram without filling defects and no hydronephrosis. Some reflux up the anvik right ureter but good drainage of both transplant and anvik ureter to the bladder. Nephrostomy tube was removed without issue. Patient does have some sensation of incomplete bladder emptying and occasional sensation in his right flank. PVR today was 33cc. Will re-evaluate urinary symptoms at next appointment. --continue Flomax --RTC in one month flow flow/PVR/IPSS Patient to call with any additional questions or concerns. Ryan Yepez MD 07/07/22 documented in this encounter [facility] 06-27-2022 History of Present [...] transplant, orthotopic (N/A, 04/12/2020); kidney transplant w/o anvik nephrectomy (N/A, 04/12/2020); and placement nephrostomy catheter [...] Negative for , diarrhea, constipation Genitourinary: See [place] Neurological: Negative for headaches. Lymph/Heme: Negative for [...] x 4, Normal strength. No edema. Skin: [place], warm, and dry. There are no rashes [...] yo male with a DDRT to the [facility] in 2019. Nephrostomy tube placed [...] bag if needed. documented in this encounter [facility] 06-27-2022 History and physical note Patient was evaluated in clinic as a nurse visit. Please refer to Rena Brewster's note. [facility] Work Phone: 06-27-2022 History and physical note Patient was evaluated in clinic as a nurse visit. Please refer to Rena Brewster's note. documented in this encounter [facility] 06-27-2022 History of Present illness Narrative TEACHING REGARDING TX NEPH COMPLETED-NEPH TUBE SITE DRY AND INTACT-CLEAR YELLOW URINE IN THE BAG-INSTRUCTED ABOUT FLUSHING, BAG CHANGING ETC. NUMEROUS QUESTIONS ASKED AND ANSWERED-VERBALIZED UNDERSTANDING documented in this encounter [facility] 06-18-2022 Note EXAMINATION: CT ABD/ PELVIS [...] mass or enlargement. KIDNEYS: Marked atrophy of anvik kidneys. Transplant right pelvic kidney with percutaneous [...] authenticated by: MÓNICA JIMENEZ Date: 2022-06-18 13:[address] [facility] 06-12-2022 Instructions Anayeli Christianson RN - 06/12/2022 3:21 PM EDT Do not take apart/disrupt nephrostomy tube system. Call Interventional Radiology and/or on-call transplant nurse [phone] for instruction if need to flush (clot or decreased flow). Take cipro 500mg, one tablet, twice per day for 14 days documented in this encounter [facility] 06-12-2022 History of Present illness Narrative Images from the original note were not included. 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 Framing Mill Operator: Anayeli Burt Date of Liver Transplant: 04/13/2020 (Kidney), 04/13/2020 (Liver) 2 year, 1 months post Liver/Kidney Transplant Primary Disease: Hypertensive Nephrosclerosis Transplant Route Sales Associate: Steve Latham Primary Care physician: Zuly Bruno [...] kidney stone in renal graft at [facility]. Percutaneous Neph Tube placed Images from the original note were not included. Nursing Assessment In Clinic (see Clinic Prep Sheet for additional information) Patient is accompanied to clinic today by: self Did patient require a wheelchair or medical transport for appointment: no Did front elevator operator confirm current address and insurance information is [...] PREFERRED LAB AND PHARMACY: None Specified [facility] [address] - [address] [address] [facility] [address] [facility] [address] [id number] [place] [address] [address] [facility] [address] [facility] [address] [facility] [address], [address] [facility] [address] ROS and SCREEN: Chest Pain: negative Cough: negative SOB: negative Abd Pain: negative Nausea: positive Vomiting: negative Diarrhea: negative Constipation: negative Dysuria: positive Edema: negative Tremors: negative Headaches: negative Wound issues: negative Pt has neph tube w clear yellow urine. States he had a small clot that he dislodged QUESTIONS OR CONCERNS TO ADDRESS WITH PHYSICIAN: I saw George Styles at the [facility] on 06/12/2022. Patient is a 52 y.o. 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 Steve Latham MD communications consultant Division of Nephrology [facility] documented in this encounter [facility] 06-04-2022 Instructions TATI GROVE - 06/04/2022 11:04 AM EDT Thank you for joining us for your neph tube follow up. We recommend routine exchange every 8-10 weeks. Please reach out at [phone] when it is time to set your next routine exchange. Thank you IR clinic documented in this encounter [facility] 06-04-2022 History of Present illness Narrative [...] exchange. Verbalized understanding. documented in this encounter [facility] 05-20-2022 Note Formatting of this n [...] time of his discharge. Leon Cook RN [facility] 05-20-2022 Miscellaneous Notes Patient discharged. AVS [...] provide teaching before his discharge Leon RN #[id number] Leon Cook RN Afternoon assessment completed at [...] Outcome: Ongoing Discussed with [facility] re: possible urine culture performed at [...] Stone left in strainer in pt bathroom. 0: IHIS message sent to Dr Justyn Wen, [...] with questions. Evan Byrd MD Urology, PGY-2 #[id number] I certify that this patient requires inpatient [...] Kallie Lorenzana RN documented in this encounter [facility] 05-20-2022 Note Formatting of this n [...] discharge/transition of care. Outcome: Adequate for Discharge [facility] 05-20-2022 Note Formatting of this n ote might be different from the original. Anne Dillard MD R10 [address]m [address] George Please let's have a clear order on how the nephrostomy site dressing need to be changed when the patient goes home so we provide teaching before his discharge Leon GALLARDO #[id number] Leon Cook RN [facility] 05-20-2022 History of Present illness Narrative Images from the original note were not included. [facility] Note: [facility] received the following discharge prescription(s): Medication reconciliation was completed with comparison to discharge reconciliation report. The prescription(s) will be delivered to the patient's bedside on 05/20/22. Total cost is $0. Yanira Her RPh,PharmD Specialty ([facility]) [phone] Jakob [phone] [facility] [phone] Raheem [phone] [place] [phone] Bedside Delivery ([facility]) [phone] Attending [facility]. I saw and independently [...] Evan Bennett MD 20 mg at 05/19/22 0806 gabapentin (NEURONTIN) capsule 400 mg 400 mg [...] Daily Progress Note Patient: George Styles, 1970, [id number] Physician: Liam Julian MD, PGY-3, Pager #[phone], [id number] Subjective/Interval History: No acute events overnight. Passed stone this morning, will send to lab for analysis. Overall reporting improvement in abdominal pain. Objective: Vitals: 05/19/220 BP: 174/77 Pulse: 62 Resp: 16 Temp: 97.8 F (36.6 C) O2 Device: room air (05/19/22399) Flow (L/min): 3 (05/17/221718) Gen: NAD, well-appearing [...] Saldana MD Division of Hospital Medicine Pager [phone] Attending I saw [facility]. I saw and independently [...] Daily Evan Bennett MD 20 mg at 05/17/22946 gabapentin (NEURONTIN) capsule 400 mg 400 mg [...] Daily Progress Note Patient: George Styles, 1970, [id number] Physician: Nishant Gamez MD, PGY2, Pager #[phone], [id number] Subjective/Interval History: Nephrostomy tube placed yesterday with [...] to have stablized for this to be banking representative. Daya (Nunu) Jeff Saldana MD Division of Hospital Medicine Pager [phone] Internal Medicine Daily Progress Note Patient: George Styles, 1970, [id number] Physician: Nishant Gamez MD, PGY2, Pager #[phone], [id number] Subjective/Interval History: Worsening creatinine this morning with [...] Saldana MD Division of Hospital Medicine Pager [phone] Attending I saw [facility]. I saw and independently [...] Evan Bennett MD 650 mg at 05/16/22 171 allopurinol (ZYLOPRIM) tablet 100 mg 100 mg Oral Daily Nishant Gamez MD amLODIPine (NORVASC) tablet 5 mg 5 mg Oral Daily Evan Bennett MD 5 mg at 05/16/22 1018 aspirin chewable tablet 81 mg 81 mg Oral Daily Evan Bennett MD 81 mg at 05/16/22 1018 atorvastatin (LIPITOR) tablet 20 mg 20 mg Oral QHS Evan Bennett MD 20 mg at 05/16/222047 benzocaine-menthol (CEPACOL) 15-3.6 MG per lozenge 1 [...] of chart and discussion with treatment team, Jump Roll Operator has not identified needs at this [...] follow. Introduced self and role of the journeyman millwright to patient. Provided emotional and spiritual support and the patient responded by sharing their experience and discussed the following: - Spirituality/Orthodoxy Affiliation: As a kid attended [employer] but not a strong identity now - Family support - pt's brothers live close by Molding Associate provided: - Supportive presence - Active listening - Validation of feelings/emotions Patient encouraged to request a journeyman millwright as needed. Chaplains are available in-house 24 hours a day and 7 days a week. For urgent matters in [facility], please page [phone]. If the request is not urgent, please enter a consult. Consults are responded to within 24 hours. Angie Singh Mdiv, [facility] Transplant [place] [address] Molding Associate [facility] Molding Associate Kirk [phone] [email or web address] 22/06 [facility] Pager [phone] 22/06 Pager ,[facility], and [place] 1500 22/06 [place] Pager [phone] 05/16/22 1129 Clinical Encounter Type Visited With Patient Visit Type Introduction Pastoral Time Spent 15 min Referral Other (See Comment) (Rounding) Spiritual Assessment Spiritual Observation Spirituality helpful;Identifies as (see comment) (Cheondoism) Emotional Observation Coping well Hope Observation Hopeful and accepting Support Observation By Family Interventions Provided Active listening;Supportive presence Facilitated Verbalization of feelings;Sharing of life story;Identifying support system Explored Expectations Basin Cleaner Education Basin Cleaner Service Available Yes Educated Patient Outcomes Patient Outcomes Articulated purpose/meaning Plan of Care Continue Visiting PRN Internal Medicine Daily Progress Note Patient: George Styles, 1970, [id number] Physician: Nishant Gamez MD, PGY2, Pager #[phone], [id number] Subjective/Interval History: Overall feeling okay this morning. 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 [...] Supervision Transfer Assessment: Sit to Stand Transfer [place] Level: Sit->Stand: independent Skilled Intervention/Details: Sit->Stand: x1 from EOB Stand to Sit Transfer [place] Level: Stand->Sit: supervision Assistive Device: Stand->Sit: armed chair Skilled Rationale: Controlled descent for sitting, Verbal cues Gait/Functional Mobility: Gait Assessment [place] Level: Gait: supervision Assistive Device: Gait: gait belt Gait Distance (feet): 200 Gait Deviations Identified: decreased grace, decreased step length, decreased stride length Gait Skilled Rationale: verbal, upright posture Skilled Intervention/Details - Gait: Pt with steady gait without LOB or complaints of SOB. Stairs: Stairs Assessment [place] Level: Stair Negotiation: stand-by assist Assistive Device: Stair Negotiation: gait belt, left rail (ascending) Number of stairs: 9 Stairs Skilled Rationale: reciprocal pattern Outcome Score(s): CURRENT [facility] Basic Mobility Inpatient Short Form Turning over in bed: 4 - No Assistance Sitting/standing from chair: 4 - No Assistance Moving from lying on back to sittin - No Assistance Moving to and from bed to chair: 4 - No Assistance Walk in hospital room: 3 - A Little Assistance Climbing 3-5 steps with a railin - A Little Assistance CURRENT [facility] Mobility Raw Score: 22 CURRENT [facility] Mobility Functional Limitation/Modifier: 20.91% Currently Impaired in [...] reported no concerns with discharging home with poway support. 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 IADL History IADLs: independent Primary Language: Russian Home Management Skills: independent Meal Prep Responsibility: [...] Assessment: Transfer Assessment: Sit to Stand Transfer [place] Level: Sit->Stand: independent Skilled Rationale: Cues for increased safety Skilled Intervention/Details: Sit->Stand: x1 EOB Stand to Sit Transfer [place] Level: Stand->Sit: supervision Assistive Device: Stand->Sit: gait belt, armed chair Skilled Rationale: Verbal cues, Controlled descent for sitting, Cues for increased safety Skilled Intervention/Details: Stand->Sit: cues for hand placement and controlled descent Functional Mobility: Functional Mobility [place] Level: Functional Mobility/Gait: stand-by assist Assistive Device: Functional Mobility/Gait: gait belt Functional Mobility Distance: Distance needed for limited community mobility Functional Mobility Deficits: Activity tolerance, Balance, Decreased step length, Generalized weakness Functional Mobility Skilled Rationale: Verbal cues, Facilitate postural control Skilled Intervention/Details - Functional Mobility/Gait: cues for upright posture Outcome Score(s): CURRENT [facility] Daily Activity Inpatient Short Form Putting on/Taking Off Lower Body Clothin - A Little Assistance Bathin - A Little Assistance Toiletin - A Little Assistance Putting on/Taking Off Upper Body Clothin - No Assistance Groomin - No Assistance Eatin - No Assistance CURRENT [facility] Activity Raw Score: 21 CURRENT [facility] Activity Functional Limitation/Modifier: 32.79% Currently Impaired in [...] DAY SURGERY MAIN OR KIDNEY TRANSPLANT W/O SENECA-CAYUGA NEPHRECTOMY N/A 04/12/2020 Laterality: N/A; Surgeon: LU [...] by: Mel Norman OT, OTR/L License #: [id number] pager # [phone] 05/20/2022 Upon discontinuation of Acute Care Occupational Therapy Services or patient discharge from the hospital this note represents the current Occupational Therapy Discharge Summary. documented in this encounter [facility] 05-20-2022 Hospital course Narrative Discharge Summary [...] during his recent hospital stay at [facility]. As you may know, George [...] Saldana MD Division of Hospital Medicine p: [phone] f: [phone] CONSULTS DURING ADMISSION: IP CONSULT TO SURGERY - UROLOGY IP CONSULT TO NEPHROLOGY - TRANSPLANT (MEDICINE) IP CONSULT TO INTERVENTIONAL RADIOLOGY IP CONSULT TO PHYSICAL THERAPY IP CONSULT TO OCCUPATIONAL THERAPY IP CONSULT TO PHARMACY BEDSIDE DISCHARGE MED DELIVERY IMAGING / PROCEDURES / RESULTS: Should you require further information or copies of results or reports please contact Medical Information Management @ [phone] LABS AT TIME OF DISCHARGE: Lab Results [...] AT DISCHARGE: Zuly Bruno [address] / [place] [address] MEDICATIONS: Discharge Orders CT ABDOMEN/PELVIS WITHOUT CONTRAST [...] CAPS Generic drug: docusate Follow-up: Zuly Bruno, SLASHER MACHINE OPERATOR [address] [facility] [phone] Schedule an appointment as soon as possible for a visit Follow-up appointment with your, primary care physician within 7-10 days, after discharge. [address] [facility] [address] Follow up The department of urology will call you with a follow up appointment. LU Ovalle [address] [facility] [address] Follow up Please make a follow up appointment with Dr. Latham's office. Upcoming Appointments (up to five)-Some appointments for Medical Center outpatient clinics or diagnostic testing locations are not displayed below Provider Department Dept Phone 06/04/2022 10:40 AM [facility] Inter[facility] Radiology Clinic [phone] 06/27/2022 1:[address] [facility] Department of Radiology Arrive at: Arrive to First Floor Registration Desk [phone] 06/27/2022 2:40 PM Ryan Yepez [facility] Arrive at: Arrive to 2nd Floor, Registration [address] 10/31/2022 1:00 PM Steve Latham [facility] Transplant [facility] [phone] 01/16/2023 9:40 AM TRANSPLANT HEPATOLOGY 3, [facility] Transplant [facility] [phone] Associated attestation - Daya Saldana MD - [...] MD (Peggy) Division of Hospital Medicine Pager [phone] documented in this encounter [facility] 05-20-2022 Hospital Discharge instructions Giulia Cavazos [...] be changed by Interventional Radiology. Please call [phone] to schedule this appointment and with any questions or concerns you may have regarding the nephrostomy tube. If you have questions or concerns, please call Interventional Radiology at SOMEONE FROM INTERVENTIONAL RADIOLOGY WILL CALL YOU FOR A FOLLOW UP IN THE IR CLINIC Giulia Cavazos RN Nurse Coordinator Interventional Radiology Interventional Radiology Outpatient scheduling documented in this encounter [facility] 05-19-2022 Note Formatting of this n [...] Ongoing Goal: Interdisciplinary Rounds/Family Conf Outcome: Ongoing [facility] 05-19-2022 Note Formatting of this n ote might be different from the original. Discussed with [facility] re: possible urine culture performed at their facility. However, based on urinalysis completed at that time, which was only notable for hematuria, culture was not performed and sample no longer feasible for culture. Liam Julian MD Internal Medicine/Pediatrics, PGY-3 [facility] 05-18-2022 Note Formatting of this n ote might be different from the original. 2003: IHIS message sent to Dr Justyn Wen, regarding patient passing a small kidney stone, about the size of pea. MD notified. Stone left in strainer in pt bathroom. 0500: IHIS message sent to Dr Justyn Wen, regarding pt BP 174/77. [facility] 05-18-2022 Note Formatting of this n [...] outcomes by discharge/transition of care. Outcome: Ongoing [facility] 05-18-2022 Note Formatting of this n [...] becomes hyponatremic, NS should instead be used. [facility] Work Phone: 05-18-2022 Note Formatting of this n ote might be different from the original. IHIS chat sent to Dr Tray Quintana, regarding pt BP 190/86. Pt complaining of pain at site of neph tube. PRN pain medication given per order parameters. Pt denies any other symptoms at this time. notified and aware. [facility] 05-17-2022 Note Formatting of this n ote might be different from the original. At 0900, I rounded with Dr. Gamez and Dr. Saldana. At that time I checked Mr. Styles's vital signs. His pulse oximeter was low and he was tachypneic. Verbal order at bedside to put nasal cannula on starting at 2liters oxygen and to provide incentive spirometer. T [facility] 05-17-2022 Note Formatting of this n ote might be different from the original. Interventional Radiology procedure completed with IR Attending Dr. Heart / Dr. Le of percutaneous right nephrostomy tube placement transplant kidney 10.2 Fr Griffin acosta Pt tolerated procedure with moderate sedation local numbing agent . Transported to inpatient after phase I recovery. Post procedure orders in place. [facility] 05-16-2022 Note Formatting of this n ote might be different from the original. At 1530, I text chavad Kaitlynn Gomez MD that patient has only had 25ml urine output in myers this afternoon. [facility] 05-16-2022 Note Formatting of this n [...] with questions. Evan Byrd MD Urology, PGY-2 #[id number] [facility] Work Phone: 05-16-2022 Note Formatting of this n ote might be different from the original. I certify that this patient requires inpatient services at this time. I anticipate the expected length of stay will include at least two midnights. Inpatient services are due to the following medical concerns Obstructive kidney stone. Plans for post hospitalization care will be discharge to home. [facility] 05-16-2022 Consult note Associated Order (s): IP CONSULT TO NEPHROLOGY - TRANSPLANT (MEDICINE) [facility]. Reason for Consultation: kidney [...] he was given flomax and sent home. [place] better but noticed more pain and decreased [...] best assessment and recommendations. Maxi Pringle MD [facility] Work Phone: 05-16-2022 Consult note Associated Order (s): IP CONSULT TO NEPHROLOGY - TRANSPLANT (MEDICINE) I [facility]. Reason for Consultation: kidney [...] he was given flomax and sent home. [place] better but noticed more pain and decreased [...] states he went to his local ED [facility] and he was put on Flomax and he did improve. Pt states last night he was unable to void with severe right sided abd pain. Pt states nausea and no vomiting or fevers. Pt states he went back to [facility] ED at 0100 and they placed a [...] orthotopic (N/A, 04/12/2020); and kidney transplant w/o anvik nephrectomy (N/A, 04/12/2020). 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 The anvik kidneys are progressively atrophic bilaterally compared to [...] of 06/14/2020 are no longer present. The anvik distal right ureter is decompressed beyond this [...] with surgical history for renal graft and anvik right urinary drainage, as a discrete ureteroneocystostomy is not identified, and the graft may be draining via a ureteroureterostomy. Urology consultation recommended. 3. The anvik kidneys are bilaterally atrophic, with right renal sinus calcifications consistent with nonobstructing right anvik renal calculi up to 6 mm. Normal [...] PGY-3, Department of Urologic Surgery Pager #: [phone] Associated attestation - Ryan Yepez MD - [...] continue flomax documented in this encounter [facility] 05-16-2022 Note Formatting of [...] supported Trust Relationship/Rapport: care explained choices provided [facility] 05-16-2022 Note Formatting of this n ote might be different from the original. On admission to R10, a dual RN initial assessment of skin condition was performed by Kallie Lorenzana RN and Sheri Arguelles RN. Skin Assessment: WDL Jose Score: 20 LDA Added:N Kallie Lorenzana RN [facility] 05-15-2022 Emergency department Note Report given to Kallie RN at 10 [facility] 05-15-2022 Emergency department Note Report given [...] diagnosed Thursday and was sent home with [facility]. He went back to that ED [...] N/A; Surgeon: LU Palma; Location: [facility] SAME DAY SURGERY MAIN OR KIDNEY TRANSPLANT W/O SENECA-CAYUGA NEPHRECTOMY N/A 04/12/2020 Laterality: N/A; Surgeon: LU Palma; Location: [facility] SAME DAY SURGERY MAIN OR OTHER [...] 05/15/222030 Pt arrives from [facility] with kidney stones. Pt states he had right lower abd pain and right flank pain with blood in his urine since Thursday. Pt states he went to his local ED [facility] and he was put on Flomax and he did improve. Pt states last night he was unable to void with severe right sided abd pain. Pt states nausea and no vomiting or fevers. Pt states he went back to [facility] ED at 0100 and they placed a myers and CT scan completed and multiple kidney stones noted. [facility] as he had liver and kidney transplant in 03/2020. documented in this encounter [facility] 05-15-2022 History and physical note Internal Medicine Admission History & Physical Patient: George Styles, 1970, [id number] Physician: Evan Bennett MD, PGY1, Pager #[phone], GM 4 service Date of face to [...] DAY SURGERY MAIN OR KIDNEY TRANSPLANT W/O SENECA-CAYUGA NEPHRECTOMY N/A 04/12/2020 Laterality: N/A; Surgeon: LU Palma; Location: [facility] SAME DAY SURGERY MAIN OR OTHER [...] erythema: Skin: No jaundice or rash Neuro: public health professor 3-7, 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 Strength grossly equal in muscle groups of the bilateral UEs and LEs. Psych: Ox3, appropriate affect and cognition Data Review: WBC/Hgb/Hct/Plts: 15.81/14.6/46.0/250 (05/15 1436) Na/K+/Phos/Mg/Ca: 138/4.6/--/--/-- (06/16 1436) Bun/Creat/Cl/CO2/Glucose: 32/2.85/105/26/141 (05/15 1436) Imaging: O[facility] CT 05/16/22 IMPRESSION: 1. Findings surrounding the liver and involymg the portal vein, branches, and collateral vessels within the upper abdomen are suspected be poststirgical chauges consistent with recent liver transplant. Increasing hypertension cannot be excluded. 2. Mild edema within the transplant renal hilum and mild dilation of the calyces may represent narrowing/partial [id number] ofthe ureter and mild hydronephrosis or sequela [...] MD Division of Hospital Medicine [phone] [facility] Work Phone: 05-15-2022 History and physical note Internal Medicine Admission History & Physical Patient: George Styles, 1970, [id number] Physician: Evan Bennett MD, PGY1, Pager #[phone], GM 4 service Date of face to [...] DAY SURGERY MAIN OR KIDNEY TRANSPLANT W/O SENECA-CAYUGA NEPHRECTOMY N/A 04/12/2020 Laterality: N/A; Surgeon: LU [...] erythema: Skin: No jaundice or rash Neuro: public health professor 3-7, 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 Strength [...] dilation of the calyces may represent narrowing/partial [id number] ofthe ureter and mild hydronephrosis or sequela [...] Medicine [id number] documented in this encounter [facility] 05-15-2022 Emergency department Note Bladder scan with Dr Villatoro at bedside, 14ml noted [facility] 05-15-2022 Consult note Associated Order (s): [...] states he went to his local ED [facility] and he was put on Flomax and he did improve. Pt states last night he was unable to void with severe right sided abd pain. Pt states nausea and no vomiting or fevers. Pt states he went back to [facility] ED at 0100 and they placed a [...] orthotopic (N/A, 04/12/2020); and kidney transplant w/o anvik nephrectomy (N/A, 04/12/2020). 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 The anvik kidneys are progressively atrophic bilaterally compared to [...] of 06/14/2020 are no longer present. The anvik distal right ureter is decompressed beyond this [...] with surgical history for renal graft and anvik right urinary drainage, as a discrete ureteroneocystostomy is not identified, and the graft may be draining via a ureteroureterostomy. Urology consultation recommended. 3. The anvik kidneys are bilaterally atrophic, with right renal sinus calcifications consistent with nonobstructing right anvik renal calculi up to 6 mm. Normal [...] into transplant kidney at that time Stephanie A. Tomas, MD PGY-3, Department of Urologic Surgery Pager #: [phone] Associated attestation - Ryan Yepez MD - [...] before surgical intervention --may continue flomax [facility] Work Phone: 05-15-2022 Emergency department Note Advised Dr Schneider concerning no urine output via myers catheter. [facility] 05-15-2022 Physician Emergency department Note ED [...] plan of care. Gian Villatoro MD 05/15/222003 [facility] Work Phone: 05-15-[address] Schneider made aware of only 30 ml urine via myers since arrival to room. [facility] 05-15-2022 Physician Emergency department Note dEPARTMENT [...] DAY SURGERY MAIN OR KIDNEY TRANSPLANT W/O SENECA-CAYUGA NEPHRECTOMY N/A 04/12/2020 Laterality: N/A; Surgeon: LU Palma; Location: [facility] SAME DAY SURGERY MAIN OR OTHER [...] Laboratory evaluation is remarkable for UTI and FAEY with an elevated white count. He was given ceftriaxone. Patient was discussed with Urology as above. Impression: UTI, FAYE Dispo: Admit to medicine This note was dictated with M-Modal. Every effort was made to correct grammatical mistakes but please excuse any incorrections. Matt Schneider MD Resident 05/15/222030 [facility] Work Phone: 05-15-2022 Emergency department Note Pt arrives from [facility] with kidney stones. Pt states he had right lower abd pain and right flank pain with blood in his urine since Thursday. Pt states he went to his local ED [facility] and he was put on Flomax and he did improve. Pt states last night he was unable to void with severe right sided abd pain. Pt states nausea and no vomiting or fevers. Pt states he went back to [facility] ED at 0100 and they placed a myers and CT scan completed and multiple kidney stones noted. Pt [facility] as he had liver and kidney transplant in 03/2020. [facility] 03-14-2022 History of Present illness Narrative [...] Required: No Mailing/Pickup Date: 03/17/2022 Shipping Address: [address] [place] [address] [address] Contact Info: Specialty ([place]) [phone] Jakob [phone] [facility] [phone] Raheem [phone] Bedside Delivery ([facility]) [phone] documented in this encounter [facility] 06-14-2021 History of Present illness Narrative [...] Goal Progress: Satisfactory Contact Info: Specialty ([place]) [phone] Jakob [phone] [facility] [phone] Raheem [phone] Bedside Delivery ([facility]) [phone] [facility]: Call Information: Date [...] Location: Home Signature Required: Yes Shipping Address: [address] [place] [address] [address] [facility] [address] Contact Info: Specialty ([place]) [phone] Jakob [phone] [facility] [phone] Raheem [phone] Bedside Delivery ([facility]) [phone] documented in this encounter [facility] Evaluation note Diagnosis FAYE (acute kidney injury)- Primary Acute kidney failure, unspecified Hydronephrosis due to obstruction of ureteral orifice Hydronephrosis due to obstruction of ureteral orifice FAYE (acute kidney injury) Acute kidney failure, unspecified [facility] Diagnosis Follow-up exam- Primary Unspecified follow-up examination [facility] Diagnosis Immunosuppressed status- Primary Unspecified disorder of immune mechanism Kidney replaced by transplant Liver replaced by transplant Abnormal blood chemistry Other abnormal blood chemistry High risk medication use Encounter for long-term (current) use of other medications Aftercare following organ transplant Liver transplant recipient [facility] Diagnosis Attention to nephrostomy- Primary [facility] Diagnosis Other hydronephrosis- Primary [facility] Diagnosis FAYE (acute kidney injury) Acute kidney failure, unspecified [facility] Diagnosis Other hydronephrosis- Primary -donor kidney transplant recipient Kidney replaced by transplant [facility] Diagnosis Other hydronephrosis [facility] Diagnosis 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) Encounter for screening for malignant neoplasm of prostate Special screening for malignant neoplasm of prostate [facility] Diagnosis Abnormal blood chemistry- Primary Other abnormal blood chemistry Liver transplant recipient Kidney replaced by transplant Immunosuppressed status Unspecified disorder of immune mechanism Aftercare following organ transplant [facility]- [facility] Diagnosis Immunosuppressed status- Primary Unspecified disorder of immune mechanism Kidney replaced by transplant Aftercare following organ transplant High risk medication use Encounter for long-term (current) use of other medications Other general symptoms and signs Abnormal blood chemistry Other abnormal blood chemistry Hypertension secondary to other renal disorders [facility] Diagnosis Histoplasmosis- Primary Histoplasmosis, unspecified [...] Fever, unspecified [facility] Diagnosis Bilateral lower extremity edema- Primary 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) Atherosclerosis 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) Atherosclerosis of aorta Obesity (BMI 30-39.9) DARLENE (obstructive sleep apnea) Obstructive sleep apnea (adult) (pediatric) Tremor Abnormal involuntary movements Immunocompromised (CMS/HCC) Unspecified immunity deficiency Primary hypertension (CMS/HCC) Unspecified essential hypertension Shortness of breath documented in this encounter [facility]* Diagnosis Pleural effusion on right- Primary Unspecified pleural effusion SOB (shortness of breath) Shortness of breath Pre-transplant evaluation for chronic liver disease Other specified pre-operative examination Heart failure, diastolic, acute Acute diastolic heart failure Abnormal blood chemistry Other abnormal blood chemistry End stage renal disease Heart failure, diastolic, acute Acute diastolic heart failure Pre-transplant evaluation for chronic liver disease Other specified pre-operative examination documented in this [facility] Consultation (Routine) - New Request Specialty Diagnoses / Procedures Referred By Deni edwards Referred To Contact Interventional Radiology Diagnoses Hydronephrosis due to obstruction of ureteral orifice Daya Saldana MD [address] [place] [address] Referral ID Status Reason Start Date Expiration Date V isits Requested Visits Authorized [id number] New Request 05/18/2022 06/12/2023 1 1 * Radiology (Emergency) - New Request Specialty Diagnoses / Procedures Referred By Deni edwards Referred To Contact Procedures US RENAL TRANSPLANT SCAN Daya Saldana MD [address] [place] [address] Referral ID Status Reason Start Date Expiration Date V isits Requested Visits Authorized [id number] New Request 05/16/2022 06/10/2023 1 1 * Consultation (Routine) - New Request Specialty Diagnoses / Procedures Referred By Contac t Referred To Contact Urology Diagnoses FAYE (acute kidney injury) Ryan Yepez MD [address] [place] [address] [address] [place] [address] Referral ID Status Reason Start Date Expiration Date V isits Requested Visits Authorized [id number] New Request 05/16/2022 06/10/2023 1 1 * MRI/CAT Scan (Routine) - New Request Specialty Diagnoses / Procedures Referred By Contac t Referred To Contact Diagnoses FAYE (acute kidney injury) Procedures CT ABDOMEN/PELVIS WITHOUT CONTRAST CHG CT SCAN,ABDOMENT AND PELVIS,W/O CONTRAST Ryan Yepez MD [address] [place] [address] [address] [place] [address] Referral ID Status Reason Start Date Expiration Date V isits Requested Visits Authorized [id number] New Request 05/16/2022 06/10/2023 1 1 * (Routine) - Pending Review Specialty Diagnoses / Procedures Referred By Contac t Referred To Contact Procedures PLATELET MONITORING PER PROTOCOL Daya Saldana MD [address] [place] [address] Referral ID Status Reason Start Date Expiration Date V isits Requested Visits Authorized [id number] Pending Review 05/15/2022 06/09/2023 1 1 * (Routine) - Pending Review Specialty Diagnoses / Procedures Referred By Contac t Referred To Contact Procedures DVT/VTE RISK ASSESSMENT Daya Saldana MD [address] [place] [address] Referral ID Status Reason Start Date Expiration Date V isits Requested Visits Authorized [id number] Pending Review 05/15/2022 06/09/2023 1 1 * (Routine) Specialty Diagnoses / Procedures Referred By Contac t Referred To Contact Evan Bennett MD [address] [place] [address] Referral ID Status Reason Start Date Expiration Date Visits Re quested Visits Authorized * (Routine) Specialty Diagnoses / Procedures Referred By Contac t Referred To Contact Eavn Bennett MD [address] [place] [address] Referral ID Status Reason Start Date Expiration Date Visits Re quested Visits Authorized [facility] for referral (narrative)* Consultation (Routine) - New Request Specialty Diagnoses / Procedures Referred By Contac t Referred To Contact Sleep Medicine Diagnoses Hypoxia Kevin Sage MD [address] [place] [address] Referral ID Status Reason Start Date Expiration Date V isits Requested Visits Authorized [id number] New Request 09/10/2023 10/04/2024 1 1 * MRI/CAT Scan (Routine) - New Request Specialty Diagnoses / Procedures Referred By Contac t Referred To Contact Diagnoses Histoplasmosis Procedures CT CHEST WITHOUT CONTRAST CHG DIAGNOSTIC COMPUTED TOMOGRAPHY THORAX W/O CNTRST Kevin Sage MD [address] [place] [address] Referral ID Status Reason Start Date Expiration Date V isits Requested Visits Authorized [id number] New Request 09/10/2023 10/04/2024 1 1 * Radiology (Routine) - New Request Specialty Diagnoses / Procedures Referred By Contac t Referred To Contact Procedures US RENAL TRANSPLANT SCAN Steve Latham MBBS [address] [place] [address] Referral ID Status Reason Start Date Expiration Date V isits Requested Visits Authorized [id number] New Request 08/29/2023 09/22/2024 1 1 * (Routine) - New Request Specialty Diagnoses / Procedures Referred By Contac t Referred To Contact Procedures PLATELET MONITORING PER PROTOCOL Steve Latham MBBS [address] [place] [address] Referral ID Status Reason Start Date Expiration Date V isits Requested Visits Authorized [id number] New Request 08/28/2023 09/21/2024 1 1 * (Routine) - New Request Specialty Diagnoses / Procedures Referred By Contac t Referred To Contact Procedures DVT/VTE RISK ASSESSMENT Steve Latham MBBS [address] [place] [address] Referral ID Status Reason Start Date Expiration Date V isits Requested Visits Authorized [id number] New Request 08/28/2023 09/21/2024 1 1 [facility] Instructions * Patient Instructions - Christin Elizabeth APRN-SLASHER MACHINE OPERATOR - 10/19/2018 9:21 AM EST You should take an extra dose of the lactulose as needed so that you are having 3-4 bowel movementsdaily. You should start the chemical dependency counseling as soon as possible. If you have questions, call the transplant 7th grade social studies teacher Melania Pierson. in this encounter* Patient Instructions - Sophie Cary RN - 10/12/2018 11:09 AM EST You have been seen in the pre-transplant evaluation clinic by Dr. Restrepo and Sophie Cary. Sophie Cary is your pre-membership coordinator she can be reached at [phone] at any time for questions during the pre-transplant process. Your evaluation is complete pendin. Abdominal ultrasound. 2. 6 minute walk test. 3. Cardiology evaluation. Additionally, your earth science professor will recommend testing to screen for coronary artery disease. This will be scheduled for you after your cardiology visit. 4. Your coordinator will be requesting record from your last dental visit, colonoscopy and EGD. 5. Please work to complete social work recommendations. Your 7th grade social studies teacher will be contacting you to follow up on your progress. 6. You have also been referred for a kidney transplant. An appointment will be scheduled for you sari evaluated in the kidney transplant clinic after you have satisfied requirements dictated by [employer] company. Once your testing is complete, we [...] ___ Other Name MRN * Christin Elizabeth, MAINTENANCE [facility] - 10/19/2018 9:00 AM EST Formatting of this note may be different from the original. History of Present Illness: Chief Complaint Patient presents with Follow-up Cirrhosis George Styles is a 48 y.o. male who presents to the [facility] today regarding his diagnosis/chief complaint(s) of Cirrhosis secondary to ETOH, with ESRD follows with Dr. Orr. Currently undergoing evaluation for liver/kidney transplant. Has been seen in transplant clinic for eval. Still undergoing pre testing. Diagnosed in April 2018. Last drink was immediately prior to hospital admission in [place] for ACLF. Hospital course notable for ARF [...] (human immunodeficiency virus infection); Hyperlipidemia; Hyperthyroidism; Hypothyroidism; NC (myocardial infarction); Migraine; DARLENE (obstructive sleep apnea); [...] kidney transplant evaluation. Pt was AOx3. Transplant Wool Hat Sanding Machine Operator role/function was explained and reviewed. The patient was informed that the results of this assessment will be shared with the referring provider and the transplant team. The patient verbalized understanding of this information. The [facility] psychosocial assessment consent form has been explained to patient and has been signed. Pt is completing this evaluation with brother (David) in the Outpatient setting. AMRITK educated pt on the benefits of completing/filing advanced directives and resources were offered. Pt identifies with EPISCOPAL oriental orthodox. Pt confirms being a [place] Citizen. Pt.'s primary language is Russian. Pt confirms the ability to read,write, and understand Russian. Pt denies potential donors. Donor cards and [...] has valid license, does not regularly drive (SLASHER MACHINE OPERATOR recommends that he not to drive). He [...] related disease etoh cirrohosis April dx in [facility] for thirty days. Pt reports learning that [...] as well as referred him to pre membership coordinator. Pt and support demonstrated moderate understanding [...] Patient's brother David is a self employed gym attendant. Additional support includes his other brother Tyshawn and his Mary live fifteen minutes away. Of note Mary is a rotor plate washer for a [employer] is available to assist department coordinator. He confirms being comfortable asking for help. [...] in 2010, he was employed by the [employer]. He has access to SSDI payment (SSDI starts in November) in regards to financial means pre/ post-transplant. Pt confirms (meeting bills currently, ) being able to meet daily needs. Patient's brother asking for additional information on community resources, food stamps and [place]. Refer him to pt.'s dialysis center and the [facility]. Hereports access to Medicaid. Pt. denies history. Amritk encouraged patient to identify a post-transplant financial [...] court ordered treatment after a DUI charge [facility] in [place], court ordered treatment in 2001 and in [...] by patient from his primary medical provider- SLASHER MACHINE OPERATOR patient was noted as attending an [...] clinical tools and a modified version of the[place]ford Integrated Psychosocial Assessment for Transplant (SIPAT) and the SIPAT-General TXP Long Form Ming et al, 2008; Ming et al, Psychosomatics 2012. * Alfredito Restrepo MD - 10/12/2018 10:00 AM EST Formatting of this note may be different from the original. Pretransplant new visit Date of service: 10/12/2018 -Referring bobbin painter for today's consult: -Primary Care Provider: Zuly Bruno CC: Chief Complaint Patient presents with Liver Recipient Evaluation History of Present Illness George Styles is a 48 y.o. male who presents to the [facility] liver transplant surgery clinic today [...] processes progressing rapidly Unknown * Elisa Tiwari, SONU - 10/12/2018 10:00 AM EST Timed up and go 9.9 seconds Infant Childcare Provider Left 52.8 pounds Right 44.9 pounds Waist circ 38.5 inches * Sophie Cary, SAMI - 10/12/2018 10:00 AM EST Formatting of this note may be different from the original. Patient George Styles ([id number]), accompanied by his brother, was seen on [...] if there are any further questions. Sophie GUERINN, RN Liver Framing Mill Operator Etiology: ETOH HCC: No ETOH: Yes [...] Yovani Orr MD [address] [address] Status Reason Specialty Diagnoses / Procedures Referred By Contact Referred To Contact New Request Diagnoses Cirrhosis of liver with ascites, unspecified hepatic cirrhosis type Procedures US ABDOMEN RUQ/LIVER/GB Yovani Orr MD [address] [address] Specialty Diagnoses / Procedures Referred By Contac t Referred To Contact Diagnoses FAYE (acute kidney injury) Procedures CT ABDOMEN/PELVIS WITHOUT CONTRAST CHG CT SCAN,ABDOMENT AND PELVIS,W/O CONTRAST Central Scheduling [address] [place] [address] Referral ID Status Reason Start Date Expiration Date V isits Requested Visits Authorized [id number] Pending Review 05/16/2022 06/10/2023 1 1 Specialty Diagnoses / Procedures Referred By Contac t Referred To Contact Diagnoses Other hydronephrosis Procedures FLUORO IMAGING FOR UROLOGY Ryan Yepez MD [address] [facility] [address] [place] [address] Referral ID Status Reason Start Date Expiration Date V isits Requested Visits Authorized [id number] New Request 07/07/2022 08/01/2023 1 1 Specialty Diagnoses / Procedures Referred By Contac t Referred To Contact Procedures DIRECT ADMIT REQUEST Steve Latham MBBS [address] [place] [address] Referral ID Status Reason Start Date Expiration Date V isits Requested Visits Authorized [id number] New Request 08/28/2023 09/21/2024 1 1 Specialty Diagnoses / Procedures Referred By Contac t Referred To Contact Radiology Diagnoses DARLENE (obstructive sleep apnea) Primary hypertension (CMS/HCC) Bilateral lower extremity edema Shortness of breath Procedures Echocardiogram 2D complete Zuly Bruno NP [address] [place] [address] Referral ID Status Reason Start Date Expiration Date Visits Requested Visits Authorized [id number] Incomplete Perform Procedure 01/06/2024 07/04/2024 1 1 Specialty Diagnoses / Procedures Referred By Contac t Referred To Contact Procedures US IMAGING REGIONAL ANESTHESIA Kehinde Gutierrez MD [address] [place] [address] Referral ID Status Reason Start Date Expiration Date V isits Requested Visits Authorized [id number] New Request 01/22/2024 02/15/2025 1 1 Specialty Diagnoses / Procedures Referred By Contac t Referred To Contact Cardiovascular Medicine Diagnoses Heart failure, diastolic, acute Kelvin Pacheco MD, MBBS [address] [place] [address] Referral ID Status Reason Start Date Expiration Date V isits Requested Visits Authorized [id number] New Request 01/20/2024 02/13/2025 1 1 Specialty Diagnoses / Procedures Referred By Contac t Referred To Contact Procedures US ABDOMEN LIVER DOPPLER US ABDOMEN LIVER TRANSPLANT DOPPLER Timothy Joseph MD [address] [facility] [address] [place] [address] Referral ID Status Reason Start Date Expiration Date V isits Requested Visits Authorized [id number] New Request 01/16/2024 02/09/2025 1 1 Specialty Diagnoses / Procedures Referred By Contac t Referred To Contact Procedures DVT/VTE RISK ASSESSMENT Kelvin Pacheco MD, MBBS [address] [place] [address] Referral ID Status Reason Start Date Expiration Date V isits Requested Visits Authorized [id number] New Request 01/16/2024 02/09/2025 1 1 Specialty Diagnoses / Procedures Referred By Contac t Referred To Contact Procedures PLATELET MONITORING PER PROTOCOL Kelvin Pacheco MD, MBBS [address] [place] [address] Referral ID Status Reason Start Date Expiration Date V isits Requested Visits Authorized [id number] New Request 01/16/2024 02/09/2025 1 1 Referral ID Status Reason Start Date Expiration Date V isits Requested Visits Authorized [id number] New Request 01/16/2024 02/09/2025 1 1 Specialty Diagnoses / Procedures Referred By Contac t Referred To Contact Procedures ECG Kelvin Pacheco MD, MBBS [address] [place] [address] Referral ID Status Reason Start Date Expiration Date V isits Requested Visits Authorized [id number] New Request 01/16/2024 02/09/2025 1 1 Advance Directives Documents on File Type Date Recorded Patient Regional Transportation Manager Expl anation Advance Directives and Living Will Power of Bearing Inspector Latest Code Status on File Code Status [...] Date Activated Date Inactivated Comments Full Code 01/20/2024 11:06 AM Code Status History Code Status Date Activated Date Inactivated Comments Full Code 01/16/2024 1:48 AM 01/20/2024 11:06 AM Full Code 08/28/2023 8:47 PM 01/16/2024 1:48 AM Full Code 05/15/2022 10:11 PM 08/28/2023 8:47 PM Full Code 05/10/2020 4:17 AM 05/15/2022 10:11 PM Latest Code Status on File Code Status Date Activated Date Inactivated Comments Full Code 01/20/2024 11:06 AM Code Status History Code Status Date Activated Date Inactivated Comments Full Code 01/16/2024 1:48 AM 01/20/2024 11:06 AM Full Code 08/28/2023 8:47 PM 01/16/2024 1:48 AM Full Code 05/15/2022 10:11 PM 08/28/2023 8:47 PM Full Code 05/10/2020 4:17 AM 05/15/2022 10:11 PM Summary Purpose Family History No Family History [...] Yovani Orr MD [address] [address] Status Reason Specialty Diagnoses / Procedures Referre d By Contact Referred To Contact Denied Diagnoses Alcoholic cirrhosis, unspecified whether ascites present Pre-transplant evaluation for liver transplant Procedures MRI ABDOMEN WITH CONTRAST DC MRI, ABDOMEN W/CONTRAST Yovani Orr MD [address] [address] Reason Comments Liver Recipient Evaluation Status Reason Specialty Diagnoses / Procedures Referred By Contact Referred To Contact New Request Transplant / Transplant Surgery Procedures PRE NEW PATIENT Yovani Orr MD [address] [place] [address] Alfredito Restrepo MD [address] [place] [address] Reason Comments Reschedule Reason Comments Outside Medical Records Request Reason Comments Social Work Follow-up Reason Comments Kidney Stone Specialty Diagnoses / Procedures Referred By Contdaniel t Referred To Contact Diagnoses Obstructing kidney stone, s/p kidney transplant 2019 Daya Saldana MD [address] [place] [address] [facility] [address] [place] [address] Referral ID Status Reason Start Date Expiration Date Visits Re quested Visits Authorized [id number] 1 1 Reason Comments Follow-up Reason Comments Kidney Recipient Follow-up Liver Recipient Follow-up Reason Comments Consult Reason Comments New Patient Hospital follow up Specialty Diagnoses / Procedures Referred By Deni t Referred To Contact Urology Diagnoses hosp fu with [address] prior Procedures NEW TO DOC/RET PATIENT Zuly Bruno, SLASHER MACHINE OPERATOR [address] [place] [address] Ryan Yepez MD [address] [facility] [address] [place] [address] Referral ID Status Reason Start Date Expiration Date Visits Re quested Visits Authorized [id number] Closed 06/27/2022 07/22/2023 1 1 Specialty Diagnoses / Procedures Referred By Contac t Referred To Contact Diagnoses FAYE (acute kidney injury) Procedures CT ABDOMEN/PELVIS WITHOUT CONTRAST CHG CT SCAN,ABDOMENT AND PELVIS,W/O CONTRAST Central Scheduling [address] [place] [address] Referral ID Status Reason Start Date Expiration Date V isits Requested Visits Authorized [id number] Pending Review 05/16/2022 06/10/2023 1 1 Reason Comments Follow-up Specialty Diagnoses / Procedures Referred By Contac t Referred To Contact Urology Diagnoses 1 week fu post NT clamp Procedures RETURN PATIENT Zuly Bruno, ROB [address] [place] [address] Ryan Yepez MD [address] [place] [address] [address] [place] [address] Referral ID Status Reason Start Date Expiration Date Visits Requested Visits Authorized [id number] Authorized - 07/07/2022 08/01/2023 2 2 Specialty Diagnoses / Procedures Referred By Contac t Referred To Contact Diagnoses Other hydronephrosis Procedures FLUORO IMAGING FOR UROLOGY Ryan Yepez MD [address] [place] [address] [address] [place] [address] Referral ID Status Reason Start Date Expiration Date V isits Requested Visits Authorized [id number] New Request 07/07/2022 08/01/2023 1 1 Specialty Diagnoses / Procedures Referred By Contac t Referred To Contact Urology Diagnoses 1 week fu post NT clamp Procedures RETURN PATIENT Zuly Bruno, ROB [address] [place] [address] Ryan Yepez MD [address] [place] [address] [address] [place] [address] Referral ID Status Reason Start Date Expiration Date Visits Re quested Visits Authorized [id number] Closed 07/07/2022 08/01/2023 2 2 Reason Comments Liver Recipient Follow-up Reason Comments Kidney Recipient Follow-up Reason Comments Kidney Recipient Follow-up Specialty Diagnoses / Procedures Referred By Contac t Referred To Contact Diagnoses Kidney replaced by transplant Steve Latham, LU [address] [place] [address] [facility] [address] [place] [address] Referral ID Status Reason Start Date Expiration Date Visits Re quested Visits Authorized [id number] 1 1 Specialty Diagnoses / Procedures Referred By Contac t Referred To Contact Diagnoses Pleural effusion on right PNEUMONIA- HX LIVER AND KIDNEY TRANSPLANT Kevin Sage MD [address] [place] [address] [facility] [address] [place] [address] Referral ID Status Reason Start Date Expiration Date Visits Re quested Visits Authorized [id number] 1 1 (unrecognized sect ion and content) No Status Records FoundNo Status Records FoundNo Status Records FoundNo Status Records FoundNo Status Records FoundNo Status Records Found INFORMATION SOURCE (unrecogn ized section and content) DATE CREATED AUTHOR 01/07/2020 [facility] DATE CREATED AUTHOR AUTHOR'S ORGANIZ ATION 01/27/2021 [facility] DATE CREATED AUTHOR AUTHOR'S ORGANIZ ATION 04/13/2023 [facility] DATE CREATED AUTHOR AUTHOR'S ORGANIZ ATION 05/11/2023 [facility] DATE CREATED AUTHOR AUTHOR'S ORGANIZ ATION 01/07/2024 [facility] EPIC DATE CREATED AUTHOR AUTHOR'S ORGANIZ ATION 01/31/2024 [facility] Care Teams (unrecognized sec tion and content) Mathematical Statistician Relationship Specialty Start Date End Date Zuly Bruno CNP PCP - General 07/19/18 Comfort Rivera [facility] [address] [place] [address] Pharmacist Pharmacist 05/16/20 Angel Carpio, LIVIA,PharmD Pharmacist Pharmacist 05/16/20 Te Leigh RP,PharmD Pharmacist Pharmacist 01/09/21 Mathematical Statistician Relationship Specialty Start Date End Date Zuly Bruno CNP PCP - General 07/19/18 Comfort Rviera, [facility] [address] [facility] [address] [place] [address] Pharmacist Pharmacist 05/16/20 Angel Carpio, [facility],PharmD Pharmacist Pharmacist 05/16/20 Te Leigh [facility],PharmD Pharmacist Pharmacist 01/09/21 Mathematical Statistician Relationship Specialty Start Date End Date Zuly Bruno CNP PCP - General 07/19/18 Mathematical Statistician Relationship Specialty Start Date End Date Zuly Bruno CNP PCP - General 07/19/18 Mathematical Statistician Relationship Specialty Start Date End Date Zuly Bruno CNP PCP - General 07/19/18 Mathematical Statistician Relationship Specialty Start Date End Date Zuly Bruno CNP PCP - General 07/19/18 Mathematical Statistician Relationship Specialty Start Date End Date Zuly Bruno CNP PCP - General 07/19/18 Mathematical Statistician Relationship Specialty Start Date End Date Zuly Bruno CNP PCP - General 07/19/18 Mathematical Statistician Relationship Specialty Start Date End Date Zuly Bruno SLASHER MACHINE OPERATOR PCP - General 07/19/18 Mathematical Statistician Relationship Specialty Start Date End Date Zuly Bruno SLASHER MACHINE OPERATOR PCP - General 07/19/18 Mathematical Statistician Relationship Specialty Start Date End Date Zuly Bruno CNP PCP - General 07/19/18 Mathematical Statistician Relationship Specialty Start Date End Date Zuly Bruno CNP PCP - General 07/19/18 Mathematical Statistician Relationship Specialty Start Date End Date Zuly Bruno CNP PCP - General 07/19/18 Mathematical Statistician Relationship Specialty Start Date End Date Zuly Bruno CNP PCP - General 07/19/18 Mathematical Statistician Relationship Specialty Start Date End Date Zuly Bruno CNP PCP - General 07/19/18 Mathematical Statistician Relationship Specialty Start Date End Date Zuly Bruno CNP PCP - General 07/19/18 Mathematical Statistician Relationship Specialty Start Date End Date Zuly Bruno CNP PCP - General 07/19/18 Evan White DO [facility] [place] [address] Infectious Disease Infectious Disease 09/09/23 Mathematical Statistician Relationship Specialty Start Date End Date Zuly Bruno CNP PCP - General 07/19/18 Evan White DO [facility] [employer] [place] [address] Infectious Disease Infectious Disease 09/09/23 Mathematical Statistician Relationship Specialty Start Date End Date Zuly Bruno CNP PCP - General 07/19/18 Evan White DO [facility] [place] [id number] Infectious Disease Infectious Disease 09/09/23 Mathematical Statistician Relationship Specialty Start Date End Date Momo Verdugo MD PCP - General Family Medicine 05/21/23 Mathematical Statistician Relationship Specialty Start Date End Date Momo Verdugo MD PCP - General Family Medicine 05/21/23 Mathematical Statistician Relationship Specialty Start Date End Date Momo Verdugo MD PCP - General Family Medicine 05/21/23 Mathematical Statistician Relationship Specialty Start Date End Date Zuly Bruno CNP PCP - General 07/19/18 Evan White DO [facility] [place] [address] Infectious Disease Infectious Disease 09/09/23 Mathematical Statistician Relationship Specialty Start Date End Date Zuly Bruno CNP PCP - General 07/19/18 Evan White DO [facility] [place] [address] Infectious Disease Infectious Disease 09/09/23 Mathematical Statistician Relationship Specialty Start Date End Date Zuly Bruno CNP PCP - General 07/19/18 [place] [address] [place] [id number] Infectious Disease Infectious Disease 09/09/23 Mathematical Statistician Relationship Specialty Start Date End Date Zuly Bruno CNP PCP - General 07/19/18 Evan White DO [address] [id number] Infectious Disease Infectious Disease 09/09/23 Scheduled Active and Recently Administ ered Medications (unrecognized section and content) Medication Order 05/18/2022 05/19/2022 05/20/2022 allopurinol (ZYLOPRIM) tablet 100 mg 100 mg, Oral, DAILY, First dose (after last modification) on Thu05/17/22 at 0900, Until Discontinued 08 (Given - Provider: Mel Hampton RN) 08 (Given - Provider: Josey Braun, SAMI) 0931 (Given - Provider: Leon Cook, RN) amLODIPine (NORVASC) tablet 5 mg 5 mg, Oral, DAILY, First dose on Thu05/16/22 at 0900, Until Discontinued 0807 (Given - Provider: Mel Hampton RN) 08 (Given - Provider: Josey Braun, RN) 0932 (Given - Provider: Leon Cook, RN) aspirin chewable tablet 81 mg 81 mg, Oral, DAILY, First dose on Thu05/16/22 at 0900, Until Discontinued 0807 (Given - Provider: Mel Hampton RN) 08 (Given - Provider: Josey Braun, RN) 0930 (Given - Provider: Leon Cook, SAMI) atorvastatin (LIPITOR) tablet 20 mg 20 mg, [...] Isaac RN) 0742 (Given - Provider: Leon Cook, SAMI)1502 (Given - Provider: Leon Cook RN) losartan (COZAAR) tablet 50 mg 50 mg, Oral, 2 TIMES DAILY, First dose on Thu05/16/22 at 0900, Until Discontinued 0900 (Automatically Held - Provider: Fred Prince MD)1700 (Automatically Held - Provider: Fred Prnice MD) 0900 (Automatically Held - Provider: Fred [...] over 4 Hours, ONCE, 1 dose, On Tu05/20/22 at 0700 0742 ($$New Bag$$ - Provider: [...] Mel Hampton RN)1999 (Given - Provider: Carolyn Isaac, SAMI) 0805 (Given - Provider: Josey Braun RN)2058 (Given - Provider: Carolyn Isaac RN) 0742 [...] in half and each half swallowed separately. 1735 (Given - Provider: Mel Hampton RN) potassium chloride (K-DUR) tablet ER 40 mEq (COMPLETED) 40 mEq, Oral, ONCE, 1 dose, On 05/19/22 at 0900, Swallow tablets whole; do not crush, chew, or suck on tablet. Tablet may also be broken in half and each half swallowed separately. 0805 (Given - Provider: Josey Braun RN) potassium chloride (K-DUR) tablet ER 40 mEq (COMPLETED) 40 mEq, Oral, ONCE, 1 dose, On 05/19/22 at 1745, Swallow tablets whole; do not [...] 0932 (Given - Provider: Leon Cook, SAMI) sodium-potassium phosphate (K-PHOS NEUTRAL) tablet 1,000 mg [...] 0807 (Given - Provider: Mel Hampton RN) 0805 (Given - Provider: Josey Braun RN) 0933 (Given - Provider: Leon Cook RN) Continuous Medication Order 05/18/2022 05/19/2022 05/20/2022 lactated ringers IV solution (CANCELED) Intravenous, at 100 mL/hr, CONTINUOUS, Starting on Thu05/18/22 at 1230, Until Thu05/18/22 at 1645 1557 ($$New Bag$$ - Provider: Mel Hampton RN)1558 (Rate/Dose Verify - Provider: Carolyn Isaac RN)1737 (Paused - Provider: Carolyn Isaac RN)1807 (Restarted - Provider: Carolyn Isaac RN)1822 (Paused - Provider: Carolyn Isaac RN)1823 (Restarted - Provider: Carolyn Isaac RN)1925 (Rate/Dose Verify - Provider: Carolyn Isaac RN) 2059 (Stopped - Provider: Carolyn Isaac RN) PRN Medication Order 05/18/2022 05/19/2022 05/20/2022 acetaminophen (TYLENOL) tablet 650 mg 650 mg, Oral, EVERY 6 HOURS NEEDED, Starting on Thu05/15/22 at 2311, Until Thu05/20/22 at 2110, Mild [...] 6 HOURS NEEDED, Starting on Thu05/15/22 at 2209, Until Thu05/20/22 at 2110, Cough, Congestion iodixanol (VISIPAQUE) injection 320 mg/mL for [facility] IR NEEDED, Starting on 05/17/22 at 1101, Until Thu05/20/22 at 2110, CT Procedure melatonin tablet 3 mg 3 mg, Oral, DAILY AT BEDTIME NEEDED, Starting on Thu05/15/22 at 2206, Until Thu05/20/22 at 2110, Insomnia [...] Thu05/20/22 at 2110, Severe Pain, Moderate Pain 0338 (See Alternative - Provider: Carolyn Isaac RN)0806 (See Alternative - Provider: Mel Hampton RN) 0825 (Given - Provider: Josey Braun RN)2104 (Given - Provider: Carolyn Isaac RN) oxyCODONE HCl (ROXICODONE) tablet 10 mg(Linked Group 2) 10 mg, Oral, EVERY 4 HOURS NEEDED, Starting on Thu05/16/22 at 0614, Until Thu05/20/22 at 2110, Severe Pain 0338 (Given - Provider: Carolyn Isaac RN)0806 (Given - Provider: Mel Hampton RN) 0825 (See Alternative - Provider: Josey Braun RN)2104 (See Alternative - Provider: Carolyn Isaac RN) sodium chloride 0.9% IV solution 250 mL Intravenous, at 20 mL/hr, NEEDED, Starting on Thu05/15/22 at 2206, Until Thu05/20/22 at 2110, Carrier [...] Provider: Aixa Holden RN - Reason: Patient/family refused)2036 (Not Given - Provider: Girish Nunez RN [...] Aixa Holden RN)2035 (Given - Provider: Girish Nunez RN) 08 (Given - Provider: Terra Heart RN)2024 (Given [...] Heart RN) 0958 (Given - Provider: Cheyanne Mcdonough RN) Sulfamethoxazole-trime thoprim (BACTRIM DS) 800-160 [...] 0829 (Given - Provider: Terra Heart, SAMI) tacrolimus (PROGRAF) susp 0.25 mg 0.25 mg, Oral, EVERY 48 HOURS, First dose (after last modification) on Thu09/12/23 at 0900, Until Discontinued, Caution check route of administration. For sublingual administration, place liquid under tongue and allow absorption. Tamsulosin HCl (FLOMAX) capsule 0.4 mg 0.4 mg, Oral, DAILY, First dose on Thu08/29/23 at 0900, Until Discontinued, Slow release product. [...] Nausea / Vomiting, 1st line for Nausea/Vomiting Scheduled Medication Order 01/21/2024 01/22/2024 01/23/2024 Allopurinol (ZYLOPRIM) tablet 200 mg 200 mg, Oral, DAILY, First dose on 01/16/24 at 0900, Until Discontinued 0842 (Given - Provider: Erica Gudino RN) 0841 (Given - Provider: Terra Heart RN)1053 (JAN Hold - Provider: Automatic Transfer - Reason: Transfer to a Procedural area)1414 (MAR Unhold - Provider: Automatic Transfer) 0920 (Given - Provider: Terra Heart RN) amLODIPine (NORVASC) tablet 5 mg 5 mg, Oral, DAILY, First dose on 01/16/24 at 0900, Until Discontinued, On hold since Thu01/18/2024 at 1009 until manually unheld 0900 (Automatically Held - Provider: Arelis Mera MD) 0900 (Automatically Held - Provider: Arelis Mera MD) 0900 (Automatically Held - Provider: Arelis Mera MD)1752 (Unheld by provider - Provider: System Discharge) aspirin chewable tablet 81 mg 81 mg, Oral, DAILY, First dose on 01/16/24 at 0900, Until Discontinued, On hold since Marta 01/21/2024 at 0802 until manually unheld 0802 (Held by provider - Provider: Arelis Mera MD - Reason: Other)0900 (Automatically Held - Provider: Arelis Mera MD) 0900 (Automatically Held - Provider: Arelis Mera MD) 0900 (Automatically Held - Provider: Arelis Mera MD)1752 (Unheld by provider - Provider: System Discharge) Enoxaparin Sodium (LOVENOX) injection 40 mg 40 mg, Subcutaneous, EVERY 24 HOURS, 6 doses, First dose (after last reorder) on Thu01/22/24 at 1430, Last dose on Thu01/27/24 at 1430, Indications: DVT/PE prophylaxis 1700 (Given - Provider: Terra Heart RN) 1530 (Given - Provider: Terra Heart RN) faMOTIdine (PEPCID) tablet 20 mg 20 mg, Oral, 2 TIMES DAILY, First dose on 01/16/24 at 0900, Until Discontinued 0842 (Given - Provider: Erica Gudino RN)1619 (Given - Provider: Dillon Lyman RN) 0841 (Given - Provider: Terra Heart RN)1053 (MAR Hold - Provider: Automatic Transfer - Reason: Transfer to a Procedural area)141 (MAR Unhold - Provider: Automatic Transfer)180 (Given - Provider: Terra Heart RN) 0920 (Given - Provider: Terra Heart RN)1700 (Canceled Entry - Provider: System Discharge - Comment: Automatically canceled at discontinue of medication order) Gabapentin (NEURONTIN) capsule 400 mg 400 mg, Oral, DAILY AT BEDTIME, First dose on 01/16/24 at 0200, Until Discontinued 2033 (Given - Provider: Tati Ahmadi RN) 1053 (MAR Hold - Provider: Automatic Transfer - Reason: Transfer to a Procedural area)141 (MAR Unhold - Provider: Automatic Transfer)2008 (Given - Provider: Tati Ahmadi RN) Itraconazole (SPORANOX) oral solution 100 mg 100 mg, Oral, EVERY 12 HOURS, First dose on 01/16/24 at 0900, Until Discontinued, Administer on an empty stomach. Hold tube feeds for 1 hour before and 2 hours after administration. 0843 (Given - Provider: Erica Gudino RN)2034 (Given - Provider: Tati Ahmadi RN) 0842 (Given - Provider: Terra Heart RN)1053 (MAR Hold - Provider: Automatic Transfer - Reason: Transfer to a Procedural area)1414 (MAR Unhold - Provider: Automatic Transfer)2008 (Given - Provider: Tati Ahmadi RN) 0923 (Given - Provider: Terra Heart RN) Magnesium sulfate 4 g in sterile water 50 ml premix IVPB (COMPLETED) 4 g, Intravenous, Administer over 4 Hours, ONCE, 1 dose, On Marta 01/21/24 at 0815 0848 ($$New Bag$$ - Provider: Erica Gudino RN)1218 (Stopped - Provider: Dillon Lyman RN) Mycophenolate sodium (MYFORTIC) tablet DR 360 mg 360 mg, Oral, 2 TIMES DAILY (Solid Organ Transplant), First dose on 01/16/24 at 0800, Until Discontinued, Give on an empty stomach. Swallow tablet whole; do not crush, split or chew. Contact pharmacy if alternate route or dose is needed. 0842 (Given - Provider: Erica Gudino RN)2033 (Given - Provider: Tati Ahmadi RN) 08 (Given - Provider: Terra Heart RN)105 ([facility] Hold - Provider: Automatic Transfer - Reason: Transfer to a Procedural area)141 ([facility] Unhold - Provider: Automatic Transfer)2008 (Given - Provider: Tati Ahmadi RN) 919 (Given - Provider: Terra Heart RN) Sulfamethoxazole-trime thoprim (BACTRIM DS) 800-160 MG per tablet 1 tablet 1 tablet, Oral, THREE TIMES WEEKLY (Once per day on Thursday), First dose on Thu01/18/24 at 0900, Until Discontinued 08 (Given - Provider: Terra Heart RN)105 ([facility] Hold - Provider: Automatic Transfer - Reason: Transfer to a Procedural area)141 ([facility] Unhold - Provider: Automatic Transfer) tacrolimus (PROGRAF) susp 0.2 mg 0.2 mg, Oral, CUSTOM FREQUENCY (Once per day on Thursday), First dose on Thu01/16/24 at 0900, Until Discontinued, Caution check route of administration. For sublingual administration, place liquid under tongue and allow absorption. 08 (Given - Provider: Erica Gudino RN) 1052 ([facility] Hold - Provider: Automatic Transfer - Reason: Transfer to a Procedural area)141 ([facility] Unhold - Provider: Automatic Transfer) 922 (Given - Provider: Terra Heart RN) Tamsulosin HCl (FLOMAX) capsule 0.4 mg 0.4 mg, Oral, DAILY, First dose on 01/16/24 at 0900, Until Discontinued, Slow release product. Do not chew or crush 0842 (Given - Provider: Erica Gudino RN) 08 (Given - Provider: Terra Heart RN)105 ([facility] Hold - Provider: Automatic Transfer - Reason: Transfer to a Procedural area)1414 ([facility] Unhold - Provider: Automatic Transfer) 0920 (Given - Provider: Terra Heart RN) Torsemide (DEMADEX) tablet 20 mg (CANCELED) 20 mg, Oral, 2 TIMES DAILY BEFORE MEALS, First dose on Thu01/20/24 at 1600, Until Discontinued, Max: 200 mg/day 0842 (Given - Provider: Erica Gudino RN) Torsemide (DEMADEX) tablet 20 mg 20 mg, Oral, DAILY, First dose (after last modification) on Thu01/22/24 at 0900, Until Discontinued, Max: 200 mg/day 0841 (Given - Provider: Terra Heart RN)1053 ([facility] Hold - Provider: Automatic Transfer - Reason: Transfer to a Procedural area)1414 ([facility] Unhold - Provider: Automatic Transfer) 0920 (Given - Provider: Terra Heart RN) PRN Medication Order 01/21/2024 01/22/2024 01/23/2024 Acetaminophen (TYLENOL) tablet 650 mg 650 mg, Oral, EVERY 6 HOURS NEEDED, Starting on 01/16/24 at 0202, Until 01/23/24 at 1752, Mild Pain, Moderate Pain, Severe Pain, Oral temp > 101.5 F, 1st line for Pain, Maximum dose of acetaminophen is 4000 mg from all sources in 24 hours. 1053 ([facility] Hold - Provider: Automatic Transfer - Reason: Transfer to a Procedural area)1414 ([facility] Unhold - Provider: Automatic Transfer)1806 (Given - Provider: Terra Heart RN)2353 (Given - Provider: Tati Ahmadi RN) alum/mag hydrox.-simethicone oral suspension 30 mL 30 mL, Oral, EVERY 6 HOURS NEEDED, Starting on 01/16/24 at 0202, Until 01/23/24 at 1752, Indigestion, Per 5 mL is equivalent to: (Alum-Mag Hydroxide 200-225 mg and Simethicone 20 mg) and (Alum-Mag Hydroxide 200-200 mg and Simethicone 20 mg) 1053 ([facility] Hold - Provider: Automatic Transfer - Reason: Transfer to a Procedural area)1414 ([facility] Unhold - Provider: Automatic Transfer) guaiFENesin (ROBITUSSIN) oral solution 400 mg 400 mg, Oral, EVERY 6 HOURS NEEDED, Starting on 01/16/24 at 0202, Until 01/23/24 at 1752, Cough, Congestion 1053 ([facility] Hold - Provider: Automatic Transfer - Reason: Transfer to a Procedural area)1414 ([facility] Unhold - Provider: Automatic Transfer) HYDROmorphone (DILAUDID) injection 0.2 mg (CANCELED) 0.2 mg, Intravenous, EVERY 3 HOURS NEEDED, Starting on Thu01/22/24 at 1323, Until 01/23/24 at 0821, Severe Pain 2103 (Given - Provider: Tati Ahmadi, SAMI) Lidocaine (XYLOCAINE) 10 mg/mL injection (CANCELED) NEEDED, Starting on Thu01/22/24 at 1248, Until Thu01/22/24 at 1306, Intra-op/Intra-Proc 1248 (Given - Provider: Jyoti Bryant MD, PhD) Melatonin tablet 6 mg 6 mg, Oral, DAILY AT BEDTIME NEEDED, Starting on Tu01/19/24 at 0016, Until 01/23/24 at 1752, Insomnia 1053 ([facility] Hold - Provider: Automatic Transfer - Reason: Transfer to a Procedural area)1414 ([facility] Unhold - Provider: Automatic Transfer)2355 (Given - Provider: Tati Ahmadi, SAMI) Ondansetron (ZOFRAN) tablet 4 mg(Linked Group 1) 4 mg, Oral, EVERY 6 HOURS NEEDED, Starting on 01/16/24 at 0202, Until 01/23/24 at 1752, Nausea / Vomiting, 1st line for Nausea/Vomiting 1053 ([facility] Hold - Provider: Automatic Transfer - Reason: Transfer to a Procedural area)1414 ([facility] Unhold - Provider: Automatic Transfer)1809 (See Alternative - Provider: Terra Heart, SAMI) 0430 (See Alternative - Provider: Tati Ahmadi, SAMI)1415 (Given - Provider: Terra Heart, SAMI) Ondansetron 4mg/2ml (ZOFRAN) injection 4 mg(Linked Group 1) 4 mg, Intravenous, EVERY 6 HOURS NEEDED, Starting on 01/16/24 at 0202, Until 01/23/24 at 1752, Nausea / Vomiting, 1st line for Nausea/Vomiting 1053 ([facility] Hold - Provider: Automatic Transfer - Reason: Transfer to a Procedural area)1414 ([facility] Unhold - Provider: Automatic Transfer)1809 (Given - Provider: Terra Heart RN) 0430 (Given - Provider: Tati Ahmadi RN)1415 (See Alternative - Provider: Terra Heart RN) oxyCODONE (ROXICODONE) tablet 5 mg 5 mg, Oral, EVERY 4 HOURS NEEDED, Starting on 01/22/24 at 1322, Until 01/23/24 at 1752, Moderate Pain, Severe Pain 1441 (Given - Provider: Terra Heart RN)1926 (Given - Provider: Terra Heart, SAMI) 0427 (Given - Provider: Tati Ahmadi RN)0917 (Given - Provider: Terra Heart RN)1312 (Given - Provider: Terra Heart RN) Polyethylene glycol (MIRALAX) packet 17 g 17 g, Oral, DAILY NEEDED, Starting on 01/16/24 at 0202, Until 01/23/24 at 1752, Constipation 1st Line 1053 ([facility] Hold - Provider: Automatic Transfer - Reason: Transfer to a Procedural area)1414 ([facility] Unhold - Provider: Automatic Transfer) Prochlorperazine (COMPAZINE) injection 10 mg 10 mg, Intravenous, EVERY 6 HOURS NEEDED, Starting on 01/17/24 at 1538, Until 01/23/24 at 1752, Nausea / Vomiting, Refractory Nausea Vomiting, For IV route: dilute dose with 10mL normal saline and give by slow IV push at a rate of 5mg/min. Maximum of 40mg/day. 1053 ([facility] Hold - Provider: Automatic Transfer - Reason: Transfer to a Procedural area)1414 ([facility] Unhold - Provider: Automatic Transfer)2349 (Given - Provider: Tati Ahmadi RN) 0916 (Given - Provider: Terra Heart RN) Sodium chloride 0.9% IV solution 250 mL Intravenous, at 20 mL/hr, NEEDED, Starting on 01/16/24 at 0202, Until 01/23/24 at 1752, Carrier Fluid - See Admin. Inst, 250mL [...] of the intermittent or piggy back medication. 1053 (JAN Hold - Provider: Automatic Transfer - Reason: Transfer to a Procedural area)1414 (JAN Unhold - Provider: Automatic Transfer) No Frequency Medication Order 01/21/2024 01/22/2024 01/23/2024 Lidocaine (XYLOCAINE) 10 mg/mL injection 1 dose, Starting on 01/23/24 at 1846, Until 01/24/24 at 1900, Created by cabinet override 1900 (Due) Linked Groups Order Group 1: Ondansetron 4mg/2ml (ZOFRAN) injection 4 mgJump to med 4 mg, Intravenous, EVERY 6 HOURS NEEDED, Starting on 01/16/24 at 0202, Until 01/23/24 at 1752, Nausea / Vomiting, 1st line for Nausea/Vomiting Or Ondansetron (ZOFRAN) tablet 4 mgJump to med 4 mg, Oral, EVERY 6 HOURS NEEDED, Starting on 01/16/24 at 0202, Until 01/23/24 at 1752, Nausea / Vomiting, 1st line for Nausea/Vomiting [...] BE BASED ON THE PRIMARY CLINICAL RECORDS. [employer] [facility] provides no warranty or guarantee of the accuracy or completeness of information in this document.
[2024-02-05 07:53] LABS: Creatinine Urine Random 102.54 mg/dL (20.00-300.00); Protein Creatinine Ratio Urine 0.24; Total Protein Urine Random 24.3 mg/dL (<=11.9)
[2024-02-05 07:59] LABS: Basophils Percent Auto 0.4 % (0.2-2.0); Eosinophils Percent Auto 1.8 % (0.9-7.0); Hematocrit 46.3 % (42.0-54.0); Hemoglobin 14.7 g/dL (14.0-18.0); Lymphocytes Absolute Auto 1.4 10^3/uL (1.2-3.8); Lymphocytes Percent Auto 61.7 % (20.5-60.0); Mean Corpuscular HGB Conc 31.7 g/dL (29.9-35.2); Mean Corpuscular Hemoglobin 27.9 pg (25.9-34.0); Monocytes Absolute Auto 0.3 10^3/uL (0.3-0.8); Monocytes Percent Auto 11.5 % (1.7-12.0); Neutrophils Absolute Auto 0.6 10^3/uL (1.4-6.5); Neutrophils Percent Auto 24.6 % (43.0-75.0); Platelet Count 215 10^3/uL (150-450); Red Blood Count 5.26 10^6/uL (4.70-6.10); Red Cell Distribution Width 14.2 % (11.0-15.0); White Blood Count 2.3 10^3/uL (4.0-11.0)
[2024-02-05 08:33] LABS: Alanine Aminotransferase 30 U/L (16-63); Albumin Level 3.8 g/dL (3.4-5.0); Alkaline Phosphatase 133 U/L (46-116); Aspartate Amino Transferase 37 U/L (15-37); BUN Creatinine Ratio 9.9; Bilirubin Direct 0.3 mg/dL (0.0-0.2); Bilirubin Total 1.5 mg/dL (0.2-1.0); Calcium 9.2 mg/dL (8.5-10.1); Carbon Dioxide 27.4 mmol/L (21.0-32.0); Chloride 103 mmol/L (98-107); Estimated GFR (African America >60 (>=60); Estimated GFR (Non-African Ame 57 (>=60); Gamma Glutamyl Transpeptidase 21 U/L (15-85); Glucose 106 mg/dL (74-106); Magnesium 1.7 mg/dL (1.8-2.4); Phosphorus 3.5 mg/dL (2.6-4.7); Potassium 3.4 mmol/L (3.5-5.1); Sodium 142 mmol/L (136-145)
[2024-02-08 13:07] LABS: Tacrolimus (FK506), Blood 7.6 ng/mL (2.0-20.0)
== END 2024-02-05 07:25 | disposition home or self-care (01) ==
LOC: LAB 07:25
PROVIDERS: PCP Nurse Practitioner
DX: R79.9 Abnormal finding of blood chemistry, unspecified (principal); Z94.0 Kidney transplant status; Z48.298 Encounter for aftercare following other organ transplant; D84.9 Immunodeficiency, unspecified; Z94.4 Liver transplant status; B39.9 Histoplasmosis, unspecified
CPT/HCPCS: 36415; 80048; 80189; 80197; 82042; 82247; 82248; 82570; 82977; 83735; 84075; 84100; 84156; 84450; 84460; 85025

== ENCOUNTER 2024-02-12 06:33 | Outpatient (OUT) | payer MEDICARE, MEDICAID, SELFPAY ==
--- OUTSIDE RECORDS SUMMARY | 2024-02-12 06:43 | XMS_ITS | CCD ---
Author Name Unknown Address [address] [place] [address] Organization [facility] Care Team Providers Care Otorhinolaryngologist Name Role Phone Zuly Bruno Unavailable Unavailable [...] Unavailable JAZLYN BRUNOA Primary Care Unavailable Aichholz [facility], Zuly Primary Care Provider [phone] Miguel [facility] Shirin [facility],PharmD, Angel Unavailable Unavailab makayla Leigh [facility],PharmD, Te Unavailable Unavai lable Aicjose e [facility] Primary Care Provider MIGUEL CARDONA Attending Unavailable MISC, DR BURCH Admitting Unavailable MISC, DR BURCH Consulting Unavailable AICHHOLOmer, ROB ZULY Primary Care Unavailable MISC, DR BURCH Attending Unavailable MISC, DR BURCH Admitting Unavailable MISC, DR BURCH Consulting Unavailable AICHHOLZ, WATER HYDRANT INSTALLER ZULY Primary Care Unavailable MISC, DR BURCH Attending Unavailable ARCELIA PIZARRO Consulting Unavailable KE BURNHAM Attending Unavailable KE BURNHAM Admitting Unavailable DR MÓNICA JIMENEZ Consulting Unavailable AICHHOLZ, WATER HYDRANT INSTALLER ZULY Primary Care Unavailable NAUN ., KE Consulting Unavailable MISC, DR DOCTOR Consulting Unavailable MISC, DR DOCTOR Attending Unavailable [facility] Primary Care Unavailable MISC, DR DOCTOR Admitting Unavailable MISC, DR DOCTOR Consulting Unavailable MISC, DR DOCTOR Attending Unavailable [facility] Primary Care Unavailable MISC, DR DOCTOR Admitting Unavailable MISC, DR DOCTOR Consulting Unavailable AICHOL, [facility] Primary Care Unavailable MISC, DOCTOR Admitting Unavailable MISC, DR DOCTOR Attending Unavailable MELINDA, DR GEORGE Munoz Consulting Unavailable MELINDA, DR GEORGE Munoz Attending Unavailable AICHOL, [facility] Primary Care Unavailable MELINDA, DR GEORGE Munoz Admitting Unavailable NAUN ., KE Consulting Unavailable MIRANDA, LYNDSAY Consulting Unavailable MELINDA, DR GEORGE Munoz Consulting Unavailable NAUN ., KE Attending Unavailable NAUN ., KE Admitting Unavailable AICHOL, [facility] Primary Care Unavailable NAUN ., KE Consulting Unavailable GIAN HERRING Unavailable [facility], [facility] ZULY Consulting Unavailable [facility], [facility] ZULY Attending Unavailable [facility], [facility] ZULY Admitting Unavailable [facility], [facility] Primary Care Unavailable MISC, DR DOCTOR Consulting Unavailable MISC, DR BURCH Admitting Unavailable MISC, DOCTOR Attending Unavailable [facility] Primary Care Unavailable MISC, DR Consulting Unavailable MISC, DR DOCTOR Attending Unavailable MISC, DR DOCTOR Admitting Unavailable AICHOL, [facility] Primary Care Unavailable MISC, DOCTOR Admitting Unavailable MISC, DR BURCH Consulting Unavailable MISC, DR DOCTOR Attending Unavailable [facility], [facility] Primary Care Unavailable MISC, DR DOCTOR Admitting Unavailable MISC, DR DOCTOR Consulting Unavailable [facility], [facility] Primary Care Unavailable MISC, DR DOCTOR Attending Unavailable MISC, DR DOCTOR Admitting Unavailable MISC, DR DOCTOR Consulting Unavailable AICHOL, [facility] Primary Care Unavailable MISC, DR DOCTOR Attending Unavailable [facility], [facility] ZULY Consulting Unavailable [facility], [facility] ZULY Attending Unavailable [facility], [facility] ZLUY Admitting Unavailable [facility], [facility] Primary Care Unavailable DR MÓNICA JIMENEZ Consulting Unavailable [facility] Primary Care Provider Evan White DO Unavailable Aichholz WATER HYDRANT INSTALLER, Zuly Primary Care Provider Evan White DO Unavailable Momo Verdugo MD Primary Care Provider [phone] AICHHOLZ, ZULY Attending Unavailable AICHHOLZ, ZULY Attending [...] ZULY Primary Care Unavailable YEISON, STEVE S Referring Unavailable AICHHOLZ, ZULY Primary Care Unavailable AICHHOLZ, ZULY Primary Care Unavailable AICHHOLZ, ZULY Primary Care Unavailable Allergies Allergy Classification Reported Allergen(s) Allergy Type Date of Onset Reaction(s) Facility (1 source) Shellfish; 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: [SHELLFISH DERIVED] Propensity to adverse reactions (disorder) 8 [facility] (20 sources) Shellfish-Derive d Products Propensity to adverse reactions to drug 9 [facility] (1 source) Shellfish Drug allergy (disorder) [facility] Medications Current Medications Medication Drug [...] 1 capsule by mouth once daily b oeaireq-J-subdq acid (NEPHROCAPS) 1 MG capsule Take 1 [...] ankle pain. 0 06/12/2020 06/12/2023 Discontinued lactulose 49143 mg powder for oral solution (19 sources) [...] 01/16/2023 Discontinued take 2 tablets by mo [facility] in the morning magnesium oxide (Mag-Ox) 400 MG tablet Take 2 tablets by mouth in the morning. 0 Active take 1 tablet by [facility] once daily magnesium oxide (MAG-OX) 400 MG tablet Take 400 mg by mouth daily 0 Active midodrine hydrochloride 10 mg oral tablet (20 sources) alpha-Adrenergic Agonist Start: 06-09-2018 Midod rine HCl 10 MG Tab tablet Take 1 tablet by mouth as needed. 0 06/09/2018 Active take 2 tablets by mo [facility] three times daily as needed midodrine (PROAMATINE) 5 MG tablet Take 10 mg by mouth 3 times daily Prn with dialysis 0 Active take 2 tablets by mo [facility] once daily as needed midodrine 5 MG [...] 0 07/17/2018 Active take [address] 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 White - [phone] Transplant Neph - [phone] Each 09/10/2023 01/19/2024 Discontinued (Medication Reconciliation (suppress cancel msg)) Start: 09-10-2023 CUSTOM MEDICAT ION Labs to be obtained: 1- Tacrolimus level, trough - collect twice weekly until 09/24/23, then weekly until 10/08/23, them once every two weeks there after. 2- Itraconazole level - obtain once between 09/14-09/18. 3- Chem 6 - Obtain weekly while on itraconazole Fax results to: Dr. Cindy Moran [phone] Transplant Neph - [phone] Each 0 09/10/2023 Active Diatrizoate (1 source) Start: 05-20-2022 End: 05-20-2022 diatrizoate Meglumine (Cystografin) 30 % UR solution 80 mL diphenhydrAMINE hydrochloride 25 mg oral tablet (1 source) Histamine-1 Receptor Antagonist Start: 09-03-2023 End: 09-11-2023 take 25 mg by mouth every twenty-four hours 25 mg, Oral, EVERY 24 HOURS, First dose on [facility] 09/03/23 at 1600, Until Discontinued Give 30 [...] (ZOFRAN) injection 4 mg polyethylene glycol 3350 11565 mg powder for oral solution (20 sources) [...] rate of 5mg/min. Maximum of 40mg/day. sennosides, long term 8.6 mg oral tablet (1 source) Start: [...] Intravenous, EVERY 24 HOURS, First dose on [place] 09/03/23 at 1930, Until Discontinued Give 500 [...] Start: 08-20-[address] [facility] every twelve hours Tacrolimus (PROGRAF) [...] Active Start: 01-11-2021 take [address] [facility] twice daily tacrolimus (generic) 0.5 MG [...] Coronary arteriosclerosis; 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: [Atherosclerotic heart disease of [place] coronary artery without angina pectoris] Onset: 3 [...] following other organ transplant; 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: [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; 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: [SOLE SKIVER CURRENT USE OF ASPIRIN] Onset: 06-20-2022 Episodic [...] transplant] Onset: 08-28-2023 Unclassified (1 source) Other long chain quiller tender (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; 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: [Other long chain quiller tender (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] Onset: 08-28-2023 Unclassified (1 source) Hypertension secondary to other renal disorders; 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: [Hypertension secondary to other renal disorders] Onset: 08-28-2023 Results Test Name Value Interpretation Reference Range Facility CBC,PLATELETSon 01-23-2024 Hematocrit (Bld) [Volume fraction] 37.0 % Low 39.6-48.8 [facility] Comment on above: Performed By: #### H EMOGC ####[facility] (DEFAULT)[address] [facility] [place] [address] Hemoglobin (Bld) [Mass/Vol] 12.0 g/dL Low 13.4-16.8 [facility] Comment on above: Performed By: #### H EMOGC ####[facility] (DEFAULT)[address] [facility] [place] [address] MCV (RBC) [Entitic vol] 88.1 fL Normal 79.0-94.5 [facility] Comment on above: Performed By: #### H EMOGC ####[facility] (DEFAULT)[address] [facility] [place] [address] Mean Cell Hgb 28.6 pg Normal 26.1-33.3 [facility] Comment on above: Performed By: #### H EMOGC ####[facility] (DEFAULT)[address] [facility] [place] [address] Mean Cell Hgb Conc 32.4 g/dL Normal 31.9-36.5 [facility] Comment on above: Performed By: #### H EMOGC ####[facility] (DEFAULT)[address] [facility] [place] [address] Platelet mean volume (Bld) [Entitic vol] 10.4 fL Normal 8.7-12.3 [facility] Comment on above: Performed By: #### H EMOGC ####[facility] (DEFAULT)[address] [facility] [place] [address] Platelets (Bld) [#/Vol] 170 10*3/uL Normal 146-337 [facility] Comment on above: Performed By: #### H EMOGC ####[facility] (DEFAULT)[address] [facility] [place] [address] RBC (Bld) [#/Vol] 4.20 10*6/uL Low 4.38-5.83 [facility] Comment on above: Performed By: #### [facility] ####[facility] (DEFAULT)[address] [place] [address] RBC Distribution 14.2 % Normal 10.9-14.3 [facility] Comment on above: Performed By: #### H [facility] ####[facility] (DEFAULT)[address] [place] [address] WBC (Bld) [#/Vol] 3.70 10*3/uL Low 3.73-10.10 [facility] Comment on above: Performed By: #### [facility] ####[facility] (DEFAULT)[address] [place] [address] Erythrocyte distribution width (RBC) [Ratio] 14.2 % 10.9 - 14.3 % [facility] Hematocrit (Bld) [Volume fraction] 37.0 % Low 39.6 - 48.8 % [facility] Hemoglobin (Bld) [Mass/Vol] 12.0 g/dL Low 13.4 - 16.8 g/dL [facility] Interpretation and review of laboratory results Abnormal [facility] MCH (RBC) [Entitic mass] 28.6 pg 26.1 - 33.3 pg [facility] MCHC (RBC) [Mass/Vol] 32.4 g/dL 31.9 - 36.5 g/dL [facility] MCV (RBC) [Entitic vol] 88.1 fL 79.0 - 94.5 fL [facility] Platelet mean volume (Bld) [Entitic vol] 10.4 fL 8.7 - 12.3 fL [facility] Platelets (Bld) [#/Vol] 170 10*3/uL 146 - 337 K/uL [facility] RBC (Bld) [#/Vol] 4.20 10*6/uL Low [facility] WBC (Bld) [#/Vol] 3.70 10*3/uL Low 3.73 - 10. 10 K/uL [facility] CHEM 7 (LYTES,BUN,CREA,GLUC) on 01-23-2024 Anion gap [Moles/Vol] 14 mmol/L Normal 7-17 [facility] Comment on above: Performed By: #### NATHANIEL RAMÍREZ, HFP ####[facility] (DEFAULT)[address] [place] [address] Chloride [Moles/Vol] 105 mmol/L Normal 98-108 [facility] Comment on above: Performed By: #### NATHANIEL RAMÍREZ, HFP ####[facility] (DEFAULT)[address] [place] [address] CO2 [Moles/Vol] 25 mmol/L Normal 21-31 [facility] Comment on above: Performed By: #### NATHANIEL RAMÍREZ, HFP ####[facility] (DEFAULT)[address] [place] [address] Creatinine [Mass/Vol] 1.32 mg/dL High 0.70-1.30 [facility] Comment on above: Performed By: #### NATHANIEL RAMÍREZ, HFP ####[facility] (DEFAULT)[address] [place] [address] GFR/1.73 sq M.predicted among non-blacks MDRD (S/P/Bld) [Vol rate/Area] 65 mL/min/{1.73_m2} Normal >=60 [facility] Comment on above: Result Comment: Repo rted eGFR is based on the CKD-EPI 2020 equation using creatinine, age, and sex. Performed By: #### NATHANIEL RAMÍREZ, HFP ####[facility] (DEFAULT)[address] [place] [address] Glucose [Mass/Vol] 94 mg/dL Normal 70-99 [facility] Comment on above: Performed By: #### NATHANIEL RAMÍREZ, HFP ####[facility] (DEFAULT)[address] [place] [address] Osmolality [Osmolality] 296 mosm/kg Normal 278-305 [facility] Comment on above: Performed By: #### NATHANIEL RAMÍREZ, HFP ####[facility] (DEFAULT)[address] [place] [address] Potassium [Moles/Vol] 3.8 mmol/L Normal 3.5-5.0 [facility] Comment on above: Performed By: #### NATHANIEL RAMÍREZ, HFP ####[facility] (DEFAULT)[address] [place] [address] Sodium [Moles/Vol] 140 mmol/L Normal 135-145 [facility] Comment on above: Performed By: #### NATHANIEL RAMÍREZ, HFP ####[facility] (DEFAULT)[address] [place] [address] Urea nitrogen [Mass/Vol] 23 mg/dL Normal 7-25 [facility] Comment on above: Performed By: #### NATHANIEL RAMÍREZ, HFP ####[facility] (DEFAULT)[address] [place] [address] Urea nitrogen/Creatinine [Mass ratio] 17 mg/mg Normal [facility] Comment on above: Performed By: #### NATHANIEL RAMÍREZ, HFP ####[facility] (DEFAULT)[address] [place] [address] Anion gap [Moles/Vol] 14 mmol/L 7 - 17 mmol/L [facility] Chloride [Moles/Vol] 105 mmol/L 98 - 10 8 mmol/L [facility] CO2 [Moles/Vol] 25 mmol/L 21 - 31 mmol/L [facility] Creatinine [Mass/Vol] 1.32 mg/dL High 0.70 - 1.30 mg/dL [facility] eGFR, CKD-EPI, Male 65 - PINF [facility] Comment on above: Reported eGFR is bas ed on the CKD-EPI 2020 equation using creatinine, age, and sex. Glucose [Mass/Vol] 94 mg/dL 70 - 99 mg/dL [facility] Osmolality Calc [Osmolality] 296 [facility] Potassium [Moles/Vol] 3.8 mmol/L 3.5 - 5.0 mmol/L [facility] Sodium [Moles/Vol] 140 mmol/L 135 - 145 mmol/L [facility] Urea nitrogen [Mass/Vol] 23 mg/dL 7 - 25 mg/dL [facility] Urea nitrogen/Creatinine [Mass ratio] 17 mg/mg [facility] GLUCOSE POCon 01-23-2024 Glucose [Mass/Vol] 88 mg/dL 70 - 99 mg/dL [facility] POC Sample Type CAPBL [facility] Test performed at ad dress of the patient encounter. [facility] Glucose [Mass/Vol] 191 mg/dL High 70 - 99 mg/dL [facility] Interpretation and review of laboratory results Abnormal [facility] POC Sample Type CAPBL [facility] Test performed at ad dress of the patient encounter. [facility] HEPATIC FUNCTION PANELon Albumin [Mass/Vol] 3.9 g/dL Normal 3.5-5.0 [facility] Comment on above: Performed By: #### NATHANIEL RAMÍREZ, HFP ####[facility] (DEFAULT)[address] [place] [address] ALP [Catalytic activity/Vol] 83 U/L Normal 32-126 [facility] Comment on above: Performed By: #### NATHANIEL RAMÍREZ, HFP ####[facility] (DEFAULT)[address] [place] [address] ALT [Catalytic activity/Vol] 9 U/L Low 10-52 [facility] Comment on above: Performed By: #### NATHANIEL RAMÍREZ, HFP ####[facility] (DEFAULT)[address] [place] [address] AST [Catalytic activity/Vol] 17 U/L Normal 10-39 [facility] Comment on above: Performed By: #### M TJ BLOOM7, HFP ####[facility] (DEFAULT)[address] [place] [address] Bilirubin [Mass/Vol] 1.6 mg/dL High <1.5 [facility] Comment on above: Performed By: #### Rod BLOOM CHM7, HFP ####[facility] (DEFAULT)[address] [place] [address] Bilirubin.indirect [Mass/Vol] 0.4 mg/dL High <0.3 [facility] Comment on above: Performed By: #### TJ RAMÍREZ7, HFP ####[facility] (DEFAULT)[address] [place] [address] Protein [Mass/Vol] 6.6 g/dL Normal 6.4-8.3 [facility] Comment on above: Performed By: #### NATHANIEL RAMÍREZ, HFP ####[facility] (DEFAULT)[address] [place] [address] Albumin [Mass/Vol] 3.9 g/dL 3.5 - 5.0 g/dL [facility] ALP [Catalytic activity/Vol] 83 U/L 32 - 126 U/L [facility] ALT [Catalytic activity/Vol] 9 U/L Low 10 - 52 U/L [facility] AST [Catalytic activity/Vol] 17 U/L 10 - 39 U/L [facility] Bilirubin [Mass/Vol] 1.6 mg/dL High NINF - 1.5 mg/dL [facility] Bilirubin.direct [Mass/Vol] 0.4 mg/dL High NINF - 0.3 mg/dL [facility] Protein [Mass/Vol] 6.6 g/dL 6.4 - 8.3 g/dL [facility] ITRACONAZOLE LEVELon 02-24-2 024 Hydroxyitraconazole [Mass/Vol] 7.6 mcg/mL [facility] Comment on above: REFERENCE VALUE No therapeutic range established; activity and serum concentration are similar to parent drug. ADDITIONAL INFORMATION This test was developed and its performance characteristics determined by [facility] in a manner consistent with CLIA requirements. This test has not been cleared or approved by the U.S. Food and Drug Administration. Test Performed by: [facility] [address] [place] [address] Cat Sitter: Rosendo Bose M.D. Ph.D.; CLIA# [id number] Itraconazole [Mass/Vol] 6.0 mcg/mL [facility] Comment on above: REFERENCE VALUE >0.5 (localized infection), >1.0 (systemic infection) [facility] MAGNESIUMon 01-23-2024 Magnesium [Mass/Vol] 1.8 mg/dL Normal 1.6-2.6 [facility] Comment on above: Performed By: #### M MERLE, [facility], [facility] ####[facility] (DEFAULT)[address] [place] [address] Interpretation and review of laboratory results Normal [facility] Magnesium [Mass/Vol] 1.8 mg/dL 1.6 - 2 .6 mg/dL [facility] No Panel Informationon 01-23 Interpretation and review of laboratory results Abnormal [facility] TACROLIMUS LEVEL, TROUGH ([place] E DRUG LEVEL)on 01-23-2024 Interpretation and review of laboratory results Normal [facility] Tacrolimus (Bld) [Mass/Vol] 7.0 ng/mL Bone Marrow Transplant: 4.0-12.0, Therapeutic: 5.0-15.0 [facility] Method performed is a chemiluminescent microparticle immunoasssay on the [employer] Dyer i2000. The range is based on experience at [facility] and users should be aware that target concentrations vary widely depending on concomitant therapy, time post-transplant, and desired degree of immunosuppression. [facility] Tacrolimus, Trough 7.0 ng/mL Normal Bone Susana ow Transplant: 4.0-12.0, Therapeutic: 5.0-15.0 [facility] Comment on above: Order Comment: Pleas e draw at specified interval PRIOR to dose. Do not hold dose to wait for level. Specimens batched twice per day, (M-F) and once per day weekendsMethod performed is a chemiluminescent microparticle immunoasssay on the [employer] Dyer i2000.The range is based on experience at [facility] and users should be aware that target concentrations vary widely depending on concomitant therapy, time post-transplant, and desired degree of immunosuppression. Performed By: #### T ACRO ####[facility] (DEFAULT)[address] [place] [address] CARDIAC RHYTHM (SCANNED)on 0 01-22-2024 [facility] CBC,PLATELETSon 01-22-2024 Hematocrit (Bld) [Volume fraction] 41.5 % Normal 39.6-48.8 [facility] Comment on above: Performed By: #### [facility] ####[facility] (DEFAULT)[address] [place] [address] Hemoglobin (Bld) [Mass/Vol] 13.3 g/dL Low 13.4-16.8 [facility] Comment on above: Performed By: #### H [facility] ####[facility] (DEFAULT)[address] [place] [address] MCV (RBC) [Entitic vol] 86.8 fL Normal 79.0-94.5 [facility] Comment on above: Performed By: #### H EMOGC ####[facility] (DEFAULT)[address] [place] [address] Mean Cell Hgb 27.8 pg Normal 26.1-33.3 [facility] Comment on above: Performed By: #### H EMOGC ####[facility] (DEFAULT)[address] [place] [address] Mean Cell Hgb Conc 32.0 g/dL Normal 31.9-36.5 [facility] Comment on above: Performed By: #### H EMOGC ####[facility] (DEFAULT)[address] [place] [address] Platelet mean volume (Bld) [Entitic vol] 10.5 fL Normal 8.7-12.3 [facility] Comment on above: Performed By: #### H EMOGC ####[facility] (DEFAULT)[address] [place] [address] Platelets (Bld) [#/Vol] 186 10*3/uL Normal 146-337 [facility] Comment on above: Performed By: #### H EMOGC ####[facility] (DEFAULT)[address] [place] [address] RBC (Bld) [#/Vol] 4.78 10*6/uL Normal 4.38-5.83 [facility] Comment on above: Performed By: #### H EMOGC ####[facility] (DEFAULT)[address] [place] [address] RBC Distribution 14.1 % Normal 10.9-14.3 [facility] Comment on above: Performed By: #### H EMOGC ####[facility] (DEFAULT)[address] [place] [address] WBC (Bld) [#/Vol] 3.74 10*3/uL Normal 3.73-10.10 [facility] Comment on above: Performed By: #### H EMOGC ####[facility] (DEFAULT)[address] [place] [address] Erythrocyte distribution width (RBC) [Ratio] 14.1 % 10.9 - 14.3 % [facility] Hematocrit (Bld) [Volume fraction] 41.5 % 39.6 - 48.8 % [facility] Hemoglobin (Bld) [Mass/Vol] 13.3 g/dL Low 13.4 - 16.8 g/dL [facility] Interpretation and review of laboratory results Abnormal [facility] MCH (RBC) [Entitic mass] 27.8 pg 26.1 - 33.3 pg [facility] MCHC (RBC) [Mass/Vol] 32.0 g/dL 31.9 - 36.5 g/dL [facility] MCV (RBC) [Entitic vol] 86.8 fL 79.0 - 94.5 fL [facility] Platelet mean volume (Bld) [Entitic vol] 10.5 fL 8.7 - 12.3 fL [facility] Platelets (Bld) [#/Vol] 186 10*3/uL 146 - 337 K/uL [facility] RBC (Bld) [#/Vol] 4.78 10*6/uL [facility] WBC (Bld) [#/Vol] 3.74 10*3/uL 3.73 - 10. 10 K/uL [facility] CHEM 7 (LYTES,BUN,CREA,GLUC) on 01-22-2024 Anion gap [Moles/Vol] 13 mmol/L Normal 7-17 [facility] Comment on above: Performed By: #### NATHANIEL RAMÍREZ ####[facility] (DEFAULT)[address] [place] [address] Chloride [Moles/Vol] 109 mmol/L High 98-108 [facility] Comment on above: Performed By: #### NATHANIEL RAMÍREZ ####[facility] (DEFAULT)[address] [place] [address] CO2 [Moles/Vol] 23 mmol/L Normal 21-31 [facility] Comment on above: Performed By: #### NATHANIEL RAMÍREZ ####[facility] (DEFAULT)[address] [place] [address] Creatinine [Mass/Vol] 1.10 mg/dL Normal 0.70-1.30 [facility] Comment on above: Performed By: #### TJ RAMÍREZ7 ####[facility] (DEFAULT)[address] [place] [address] GFR/1.73 sq M.predicted among non-blacks MDRD (S/P/Bld) [Vol rate/Area] 81 mL/min/{1.73_m2} Normal >=60 [facility] Comment on above: Result Comment: Repo rted eGFR is based on the CKD-EPI 2020 equation using creatinine, age, and sex. Performed By: #### NATHANIEL RAMÍREZ ####[facility] (DEFAULT)[address] [place] [address] Glucose [Mass/Vol] 84 mg/dL Normal 70-99 [facility] Comment on above: Performed By: #### NATHANIEL RAMÍREZ ####[facility] (DEFAULT)[address] [facility] [place] [address] Osmolality [Osmolality] 295 mosm/kg Normal 278-305 [facility] Comment on above: Performed By: #### NATHANIEL RAMÍREZ ####[facility] (DEFAULT)[address] [facility] [place] [address] Potassium [Moles/Vol] 4.0 mmol/L Normal 3.5-5.0 [facility] Comment on above: Performed By: #### NATHANIEL RAMÍREZ ####[facility] (DEFAULT)[address] [facility] [place] [address] Sodium [Moles/Vol] 141 mmol/L Normal 135-145 [facility] Comment on above: Performed By: #### M MERLE CHM7 ####[facility] (DEFAULT)[address] [place] [address] Urea nitrogen [Mass/Vol] 16 mg/dL Normal 7-25 [facility] Comment on above: Performed By: #### M MERLE CHM7 ####[facility] (DEFAULT)[address] [place] [address] Urea nitrogen/Creatinine [Mass ratio] 15 mg/mg Normal [facility] Comment on above: Performed By: #### M MERLE CHM7 ####[facility] (DEFAULT)[address] [place] [address] Anion gap [Moles/Vol] 13 mmol/L 7 - 17 mmol/L [facility] Chloride [Moles/Vol] 109 mmol/L High 98 - 10 8 mmol/L [facility] CO2 [Moles/Vol] 23 mmol/L 21 - 31 mmol/L [facility] Creatinine [Mass/Vol] 1.10 mg/dL 0.70 - 1.30 mg/dL [facility] eGFR, CKD-EPI, Male 81 - PINF [facility] Comment on above: Reported eGFR is bas ed on the CKD-EPI 2020 equation using creatinine, age, and sex. Glucose [Mass/Vol] 84 mg/dL 70 - 99 mg/dL [facility] Interpretation and review of laboratory results Abnormal [facility] Osmolality Calc [Osmolality] 295 [facility] Potassium [Moles/Vol] 4.0 mmol/L 3.5 - 5.0 mmol/L [facility] Sodium [Moles/Vol] 141 mmol/L 135 - 145 mmol/L [facility] Urea nitrogen [Mass/Vol] 16 mg/dL 7 - 25 mg/dL [facility] Urea nitrogen/Creatinine [Mass ratio] 15 mg/mg [facility] MAGNESIUMon 01-22-2024 Magnesium [Mass/Vol] 2.0 mg/dL Normal 1.6-2.6 [facility] Comment on above: Performed By: #### M , CHM7 ####[facility] (DEFAULT)[address] [place] [address] Interpretation and review of laboratory results Normal [facility] Magnesium [Mass/Vol] 2.0 mg/dL 1.6 - 2 .6 mg/dL [facility] No Panel Informationon 01-22 [facility] PT,INR,PTTon 01-22-2024 aPTT Coag (Bld) [Time] 29.2 s Normal 24.0-34.3 [facility] Comment on above: Performed By: #### P TPTT ####[facility] (DEFAULT)[address] [place] [address], [place] [address] INR Coag (PPP) [Relative time] 1.1 {INR} Normal 0.9-1.1 [facility] Comment on above: Performed By: #### P TPTT ####[facility] (DEFAULT)[address] [place] [address], [place] [address] PT Coag (PPP) [Time] 14.3 s High 11.9-14.2 [facility] Comment on above: Performed By: #### P TPTT ####[facility] (DEFAULT)[address] [place] [address], [place] [address] aPTT Coag (PPP) [Time] 29.2 s [facility] INR Coag (Bld) [Relative time] 1.1 {INR} 0.9 - 1.1 [facility] Interpretation and review of laboratory results Abnormal [facility] PT Coag (PPP) [Time] 14.3 s High [facility] TACROLIMUS LEVEL, TROUGH ([place] E DRUG LEVEL)Ordered By: Sheree Jensen on 01-22-2024 Interpretation and review of laboratory results Normal [facility] Tacrolimus (Bld) [Mass/Vol] 7.9 ng/mL Bone Marrow Transplant: 4.0-12.0, Therapeutic: 5.0-15.0 [facility] Method performed is a chemiluminescent microparticle immunoasssay on the [employer] Dyer i2000. The range is based on experience at [facility] and users should be aware that target concentrations vary widely depending on concomitant therapy, time post-transplant, and desired degree of immunosuppression. [facility] TACROLIMUS LEVEL, TROUGH ([place] E DRUG LEVEL)on 01-22-2024 Tacrolimus, Trough 7.9 ng/mL Normal Bone Susana ow Transplant: 4.0-12.0, Therapeutic: 5.0-15.0 [facility] Comment on above: Order Comment: Pleas e draw at specified interval PRIOR to dose. Do not hold dose to wait for level. Specimens batched twice per day, (M-) and once per day weekendsMethod performed is a chemiluminescent microparticle immunoasssay on the [employer] Dyer i2000.The range is based on experience at [facility] and users should be aware that target concentrations vary widely depending on concomitant therapy, time post-transplant, and desired degree of immunosuppression. Performed By: #### T ACRO ####[facility] (DEFAULT)[address] [place] [address] TYPE AND SCREENon 01-22-2024 ABO/RH(D) TYPE Positive [facility] ABO/RH(D) TYPE Positive Normal [facility] Comment on above: Performed By: #### X M ####[facility] (DEFAULT)[address] [place] [address] [place] Unspecified body regionOr dered By: Unassigned Pacs on 01-22-2024 [facility] Work Phone: [place] Unspecified body regionon 01-22-2024 Radiology Study observation (narrative) [facility] CBC,PLATELETSon 01-21-2024 Hematocrit (Bld) [Volume fraction] 39.4 % Low 39.6-48.8 [facility] Comment on above: Performed By: #### H EMOGC ####[facility] (DEFAULT)[address] [place] [address] Hemoglobin (Bld) [Mass/Vol] 12.7 g/dL Low 13.4-16.8 [facility] Comment on above: Performed By: #### H EMOGC ####[facility] (DEFAULT)[address] [place] [address] MCV (RBC) [Entitic vol] 87.0 fL Normal 79.0-94.5 [facility] Comment on above: Performed By: #### H EMOGC ####[facility] (DEFAULT)[address] [facility] [place] [address] Mean Cell Hgb 28.0 pg Normal 26.1-33.3 [facility] Comment on above: Performed By: #### H EMOGC ####[facility] (DEFAULT)[address] [facility] [place] [address] Mean Cell Hgb Conc 32.2 g/dL Normal 31.9-36.5 [facility] Comment on above: Performed By: #### H EMOGC ####[facility] (DEFAULT)[address] [facility] [place] [address] Platelet mean volume (Bld) [Entitic vol] 10.2 fL Normal 8.7-12.3 [facility] Comment on above: Performed By: #### H EMOGC ####[facility] (DEFAULT)[address] [facility] [place] [address] Platelets (Bld) [#/Vol] 157 10*3/uL Normal 146-337 [facility] Comment on above: Performed By: #### H EMOGC ####[facility] (DEFAULT)[address] [facility] [place] [address] RBC (Bld) [#/Vol] 4.53 10*6/uL Normal 4.38-5.83 [facility] Comment on above: Performed By: #### H EMOGC ####[facility] (DEFAULT)[address] [facility] [place] [address] RBC Distribution 14.0 % Normal 10.9-14.3 [facility] Comment on above: Performed By: #### [facility] ####[facility] (DEFAULT)[address] [place] [address] WBC (Bld) [#/Vol] 3.42 10*3/uL Low 3.73-10.10 [facility] Comment on above: Performed By: #### [facility] ####[facility] (DEFAULT)[address] [place] [address] Erythrocyte distribution width (RBC) [Ratio] 14.0 % 10.9 - 14.3 % [facility] Hematocrit (Bld) [Volume fraction] 39.4 % Low 39.6 - 48.8 % [facility] Hemoglobin (Bld) [Mass/Vol] 12.7 g/dL Low 13.4 - 16.8 g/dL [facility] Interpretation and review of laboratory results Abnormal [facility] MCH (RBC) [Entitic mass] 28.0 pg 26.1 - 33.3 pg [facility] MCHC (RBC) [Mass/Vol] 32.2 g/dL 31.9 - 36.5 g/dL [facility] MCV (RBC) [Entitic vol] 87.0 fL 79.0 - 94.5 fL [facility] Platelet mean volume (Bld) [Entitic vol] 10.2 fL 8.7 - 12.3 fL [facility] Platelets (Bld) [#/Vol] 157 10*3/uL 146 - 337 K/uL [facility] RBC (Bld) [#/Vol] 4.53 10*6/uL [facility] WBC (Bld) [#/Vol] 3.42 10*3/uL Low 3.73 - 10. 10 K/uL [facility] CHEM 7 (LYTES,BUN,CREA,GLUC) on 01-21-2024 Anion gap [Moles/Vol] 12 mmol/L Normal 7-17 [facility] Comment on above: Performed By: #### TJ RAMÍREZ7 ####[facility] (DEFAULT)[address] [place], [place] [address], [place] [address] Chloride [Moles/Vol] 107 mmol/L Normal 98-108 [facility] Comment on above: Performed By: #### TJ RAMÍREZ7 ####[facility] (DEFAULT)[address] [place] [address], [place] [address] CO2 [Moles/Vol] 26 mmol/L Normal 21-31 [facility] Comment on above: Performed By: #### TJ RAMÍREZ7 ####[facility] (DEFAULT)[address] [place] [address], [place] [address] Creatinine [Mass/Vol] 1.11 mg/dL Normal 0.70-1.30 [facility] Comment on above: Performed By: #### TJ RAMÍREZ7 ####[facility] (DEFAULT)[address] [place] [address] GFR/1.73 sq M.predicted among non-blacks MDRD (S/P/Bld) [Vol rate/Area] 80 mL/min/{1.73_m2} Normal >=60 [facility] Comment on above: Result Comment: Repo rted eGFR is based on the CKD-EPI 2020 equation using creatinine, age, and sex. Performed By: #### TJ RAMÍREZ7 ####[facility] (DEFAULT)[address] [place] [address], [place] [address] Glucose [Mass/Vol] 93 mg/dL Normal 70-99 [facility] Comment on above: Performed By: #### TJ RAMÍREZ7 ####[facility] (DEFAULT)[address] [place] [address], [place] [address] Osmolality [Osmolality] 295 mosm/kg Normal 278-305 [facility] Comment on above: Performed By: #### TJ RAMÍREZ7 ####[facility] (DEFAULT)[address] [place] [address] Potassium [Moles/Vol] 3.9 mmol/L Normal 3.5-5.0 [facility] Comment on above: Performed By: #### Rod BLOOM CHM7 ####[facility] (DEFAULT)[address] [facility] [place] [address] Sodium [Moles/Vol] 141 mmol/L Normal 135-145 [facility] Comment on above: Performed By: #### Rod BLOOM CHM7 ####[facility] (DEFAULT)[address] [place] [address] Urea nitrogen [Mass/Vol] 15 mg/dL Normal 7-25 [facility] Comment on above: Performed By: #### Rod BLOOM CHM7 ####[facility] (DEFAULT)[address] [place] [address] Urea nitrogen/Creatinine [Mass ratio] 14 mg/mg Normal [facility] Comment on above: Performed By: #### Rod BLOOM CHM7 ####[facility] (DEFAULT)[address] [facility] [place] [address] Anion gap [Moles/Vol] 12 mmol/L 7 - 17 mmol/L [facility] Chloride [Moles/Vol] 107 mmol/L 98 - 10 8 mmol/L [facility] CO2 [Moles/Vol] 26 mmol/L 21 - 31 mmol/L [facility] Creatinine [Mass/Vol] 1.11 mg/dL 0.70 - 1.30 mg/dL [facility] eGFR, CKD-EPI, Male 80 - PINF [facility] Comment on above: Reported eGFR is bas ed on the CKD-EPI 2020 equation using creatinine, age, and sex. Glucose [Mass/Vol] 93 mg/dL 70 - 99 mg/dL [facility] Osmolality Calc [Osmolality] 295 [facility] Potassium [Moles/Vol] 3.9 mmol/L 3.5 - 5.0 mmol/L [facility] Sodium [Moles/Vol] 141 mmol/L 135 - 145 mmol/L [facility] Urea nitrogen [Mass/Vol] 15 mg/dL 7 - 25 mg/dL [facility] Urea nitrogen/Creatinine [Mass ratio] 14 mg/mg [facility] Cardiac catheterization stud yOrdered By: Kelvin Donohue on 01-21-2024 Body surface area Derived from formula 2.08 m2 [facility] Work Phone: [facility] Work Phone: Cardiac catheterization stud yon [...] with fistula occlusion Kelvin Donohue MD, MPH Healthcare Consultant of Internal Medicine. Section of Advanced Heart Failure and Transplantation Division of Cardiovascular Diseases [email or web address] [email or web address] INVASIVE CARDIOVASCULAR PROC EDUREon 01-21-2024 INVASIVE CARDIOVASCULAR PROCEDURE Normal [facility] MAGNESIUMon 01-21-2024 Magnesium [Mass/Vol] 1.5 mg/dL Low 1.6-2.6 [facility] Comment on above: Performed By: #### M HELEN BLOOM ####[facility] (DEFAULT)[address] [place] [address] Interpretation and review of laboratory results Abnormal [facility] Magnesium [Mass/Vol] 1.5 mg/dL Low 1.6 - 2 .6 mg/dL [facility] No Panel Informationon 01-21 [facility] TACROLIMUS LEVEL, TROUGH ([place] E DRUG LEVEL)on 01-21-2024 Interpretation and review of laboratory results Normal [facility] Tacrolimus (Bld) [Mass/Vol] 7.2 ng/mL Bone Marrow Transplant: 4.0-12.0, Therapeutic: 5.0-15.0 [facility] Method performed is a chemiluminescent microparticle immunoasssay on the [employer] i2000. The range is based on experience at [facility] and users should be aware that target concentrations vary widely depending on concomitant therapy, time post-transplant, and desired degree of immunosuppression. [facility] Tacrolimus, Trough 7.2 ng/mL Normal Bone Susana ow Transplant: 4.0-12.0, Therapeutic: 5.0-15.0 [facility] Comment on above: Order Comment: Pleas e draw at specified interval PRIOR to dose. Do not hold dose to wait for level. Specimens batched twice per day, (M-F) and once per day weekendsMethod performed is a chemiluminescent microparticle immunoasssay on the [employer] i2000.The range is based on experience at [facility] and users should be aware that target concentrations vary widely depending on concomitant therapy, time post-transplant, and desired degree of immunosuppression. Performed By: #### T ACRO ####[facility] (DEFAULT)[address] [place] [address] CBC,PLATELETSon 01-20-2024 Hematocrit (Bld) [Volume fraction] 38.9 % Low 39.6-48.8 [facility] Comment on above: Performed By: #### [facility] ####[facility] (DEFAULT)[address] [place] [address] Hemoglobin (Bld) [Mass/Vol] 12.5 g/dL Low 13.4-16.8 [facility] Comment on above: Performed By: #### H EMOGC ####[facility] (DEFAULT)[address] [place] [address] MCV (RBC) [Entitic vol] 87.2 fL Normal 79.0-94.5 [facility] Comment on above: Performed By: #### H EMOGC ####[facility] (DEFAULT)[address] [place] [address] Mean Cell Hgb 28.0 pg Normal 26.1-33.3 [facility] Comment on above: Performed By: #### H EMOGC ####[facility] (DEFAULT)[address] [facility] [place] [address] Mean Cell Hgb Conc 32.1 g/dL Normal 31.9-36.5 [facility] Comment on above: Performed By: #### H EMOGC ####[facility] (DEFAULT)[address] [facility] [place] [address] Platelet mean volume (Bld) [Entitic vol] 10.2 fL Normal 8.7-12.3 [facility] Comment on above: Performed By: #### H EMOGC ####[facility] (DEFAULT)[address] [place] [address] Platelets (Bld) [#/Vol] 166 10*3/uL Normal 146-337 [facility] Comment on above: Performed By: #### H EMOGC ####[facility] (DEFAULT)[address] [facility] [place] [address] RBC (Bld) [#/Vol] 4.46 10*6/uL Normal 4.38-5.83 [facility] Comment on above: Performed By: #### H EMOGC ####[facility] (DEFAULT)[address] [place] [address] RBC Distribution 13.8 % Normal 10.9-14.3 [facility] Comment on above: Performed By: #### H EMOGC ####[facility] (DEFAULT)[address] [place] [address] WBC (Bld) [#/Vol] 3.79 10*3/uL Normal 3.73-10.10 [facility] Comment on above: Performed By: #### [facility] ####[facility] (DEFAULT)[address] [place] [address] Erythrocyte distribution width (RBC) [Ratio] 13.8 % 10.9 - 14.3 % [facility] Hematocrit (Bld) [Volume fraction] 38.9 % Low 39.6 - 48.8 % [facility] Hemoglobin (Bld) [Mass/Vol] 12.5 g/dL Low 13.4 - 16.8 g/dL [facility] Interpretation and review of laboratory results Abnormal [facility] MCH (RBC) [Entitic mass] 28.0 pg 26.1 - 33.3 pg [facility] MCHC (RBC) [Mass/Vol] 32.1 g/dL 31.9 - 36.5 g/dL [facility] MCV (RBC) [Entitic vol] 87.2 fL 79.0 - 94.5 fL [facility] Platelet mean volume (Bld) [Entitic vol] 10.2 fL 8.7 - 12.3 fL [facility] Platelets (Bld) [#/Vol] 166 10*3/uL 146 - 337 K/uL [facility] RBC (Bld) [#/Vol] 4.46 10*6/uL [facility] WBC (Bld) [#/Vol] 3.79 10*3/uL 3.73 - 10. 10 K/uL [facility] CHEM 7 (LYTES,BUN,CREA,GLUC) on 01-20-2024 Anion gap [Moles/Vol] 12 mmol/L Normal 7-17 [facility] Comment on above: Performed By: #### M GO, HFP, CHM7 ####[facility] (DEFAULT)[address] [place] [address] Chloride [Moles/Vol] 105 mmol/L Normal 98-108 [facility] Comment on above: Performed By: #### TAVO RAMÍREZ, CHM7 ####[facility] (DEFAULT)[address] [place] [address] CO2 [Moles/Vol] 28 mmol/L Normal 21-31 [facility] Comment on above: Performed By: #### TAVO RAMÍREZ, CHM7 ####[facility] (DEFAULT)[address] [place] [address] Creatinine [Mass/Vol] 1.12 mg/dL Normal 0.70-1.30 [facility] Comment on above: Performed By: #### TAVO RAMÍREZ, CHM7 ####[facility] (DEFAULT)[address] [facility] [place] [address] GFR/1.73 sq M.predicted among non-blacks MDRD (S/P/Bld) [Vol rate/Area] 79 mL/min/{1.73_m2} Normal >=60 [facility] Comment on above: Result Comment: Repo rted eGFR is based on the CKD-EPI 2020 equation using creatinine, age, and sex. Performed By: #### TAVO RAMÍREZ, CHM7 ####[facility] (DEFAULT)[address] [place] [address] Glucose [Mass/Vol] 88 mg/dL Normal 70-99 [facility] Comment on above: Performed By: #### TAVO RAMÍREZ, CHM7 ####[facility] (DEFAULT)[address] [place] [address] Osmolality [Osmolality] 294 mosm/kg Normal 278-305 [facility] Comment on above: Performed By: #### TAVO RAMÍREZ, CHM7 ####[facility] (DEFAULT)[address] [place] [address] Potassium [Moles/Vol] 3.8 mmol/L Normal 3.5-5.0 [facility] Comment on above: Performed By: #### TAVO RAMÍREZ CHM7 ####[facility] (DEFAULT)[address] [place] [address] Sodium [Moles/Vol] 141 mmol/L Normal 135-145 [facility] Comment on above: Performed By: #### TAVO RAMÍREZ, CHM7 ####[facility] (DEFAULT)[address] [facility] [place] [address] Urea nitrogen [Mass/Vol] 15 mg/dL Normal 7-25 [facility] Comment on above: Performed By: #### TAVO RAMÍREZ, CHM7 ####[facility] (DEFAULT)[address] [facility] [place] [address] Urea nitrogen/Creatinine [Mass ratio] 13 mg/mg Normal [facility] Comment on above: Performed By: #### TAVO RAMÍREZ, CHM7 ####[facility] (DEFAULT)[address] [place] [address] Anion gap [Moles/Vol] 12 mmol/L 7 - 17 mmol/L [facility] Chloride [Moles/Vol] 105 mmol/L 98 - 10 8 mmol/L [facility] CO2 [Moles/Vol] 28 mmol/L 21 - 31 mmol/L [facility] Creatinine [Mass/Vol] 1.12 mg/dL 0.70 - 1.30 mg/dL [facility] eGFR, CKD-EPI, Male 80 - PINF [facility] Comment on above: Reported eGFR is bas ed on the CKD-EPI 2020 equation using creatinine, age, and sex. Glucose [Mass/Vol] 88 mg/dL 70 - 99 mg/dL [facility] Osmolality Calc [Osmolality] 294 [facility] Potassium [Moles/Vol] 3.8 mmol/L 3.5 - 5.0 mmol/L [facility] Sodium [Moles/Vol] 141 mmol/L 135 - 145 mmol/L [facility] Urea nitrogen [Mass/Vol] 15 mg/dL 7 - 25 mg/dL [facility] Urea nitrogen/Creatinine [Mass ratio] 13 mg/mg [facility] Cardiac catheterization stud yon 01-20-2024 [facility] Radiology Study observation (narrative) [facility] Radiology Study observation (narrative) [facility] EBV BY PCR, QUANTITATIVE,BLO ODOrdered By: Charlotte Jensen on 01-20-2024 EBV DNA ESTELITA+probe (Unsp spec) [#/Vol] NINF [facility] Interpretation and review of laboratory results Normal [facility] This test was perfor med using a real time PCR assay. The dynamic range for this assay is 1000-5,000,000 IU/mL. A result <1000 IU/mL does not rule out the presence of EBV DNA in quantities below the sensitivity of this assay. This test was developed and its performance characteristics determined by The [facility] at The [facility]. It has not been cleared or approved by the FDA. The laboratory is regulated under CLIA as qualified to perform high-complexity testing. This test is used for clinical purposes. It should not be regarded as investigational or for research. [facility] HEPATIC FUNCTION PANELon Albumin [Mass/Vol] 3.7 g/dL Normal 3.5-5.0 [facility] Comment on above: Performed By: #### M TAVO BLOOM CHM7 ####[facility] (DEFAULT)[address] [place] [address] ALP [Catalytic activity/Vol] 73 U/L Normal 32-126 [facility] Comment on above: Performed By: #### TAVO RAMÍREZ CHM7 ####[facility] (DEFAULT)[address] [place] [address] ALT [Catalytic activity/Vol] 12 U/L Normal 10-52 [facility] Comment on above: Performed By: #### TAVO RAMÍREZ, CHM7 ####[facility] (DEFAULT)[address] [place] [address] AST [Catalytic activity/Vol] 19 U/L Normal 10-39 [facility] Comment on above: Performed By: #### M TAVO BLOOM, CHM7 ####[facility] (DEFAULT)[address] [place] [address] Bilirubin [Mass/Vol] 2.1 mg/dL High <1.5 [facility] Comment on above: Performed By: #### TAVO RAMÍREZ, CHM7 ####[facility] (DEFAULT)[address] [place] [address] Bilirubin.indirect [Mass/Vol] 0.5 mg/dL High <0.3 [facility] Comment on above: Performed By: #### TAVO RAMÍREZ, CHM7 ####[facility] (DEFAULT)[address] [place] [address] Protein [Mass/Vol] 6.1 g/dL Low 6.4-8.3 [facility] Comment on above: Performed By: #### TAVO RAMÍREZ, CHM7 ####[facility] (DEFAULT)[address] [place] [address] Albumin [Mass/Vol] 3.7 g/dL 3.5 - 5.0 g/dL [facility] ALP [Catalytic activity/Vol] 73 U/L 32 - 126 U/L [facility] ALT [Catalytic activity/Vol] 12 U/L 10 - 52 U/L [facility] AST [Catalytic activity/Vol] 19 U/L 10 - 39 U/L [facility] Bilirubin [Mass/Vol] 2.1 mg/dL High NINF - 1.5 mg/dL [facility] Bilirubin.direct [Mass/Vol] 0.5 mg/dL High NINF - 0.3 mg/dL [facility] Interpretation and review of laboratory results Abnormal [facility] Protein [Mass/Vol] 6.1 g/dL Low 6.4 - 8.3 g/dL [facility] ITRACONAZOLE LEVELon 024 Hydroxyitraconazole 7.6 mcg/mL Normal [facility] Comment on above: Order Comment: Pleas e draw level at specified interval PRIOR to dose. Result Comment: ---- REFERENCE VALUE No therapeutic range established; activity and serumconcentration are similar to parent drug. ADDITIONAL INFORMATION This test was developed and its performance characteristicsdetermined by [facility] in a manner consistent with CLIArequirements. This test has not been cleared or approved bythe U.S. Food and Drug Administration.Test Performed by:[address] Director: Rosendo Bose M.D. Ph.D.; CLIA# [id number] Performed By: #### Noah ITCON ####[facility] (DEFAULT)[address] [place] [address] Itraconazole 6.0 mcg/mL Normal [facility] Comment on above: Order Comment: Pleas e draw level at specified interval PRIOR to dose. Result Comment: ---- REFERENCE VALUE-------------------------->0.5 (localized infection), >1.0 (systemic infection) Performed By: #### Y ITCON ####[facility] (DEFAULT)[address] [place] [address] MAGNESIUMon 01-20-2024 Magnesium [Mass/Vol] 1.6 mg/dL Normal 1.6-2.6 [facility] Comment on above: Performed By: ###TAVO HERNANDEZ, CHM7 ####[facility] (DEFAULT)[address] [place] [address] Interpretation and review of laboratory results Normal [facility] Magnesium [Mass/Vol] 1.6 mg/dL 1.6 - 2 .6 mg/dL [facility] No Panel Informationon 01-20 [facility] POCT CO-OXIMETRYon Hemoglobin (Bld) [Mass/Vol] 12.8 g/dL Low 13.4 - 16.8 g/dL [facility] Interpretation and review of laboratory results Abnormal [facility] Oxyhemoglobin 69 % Low 94 - 98 % [facility] Ordering physician notified. Test performed at address of the patient encounter. [facility] Hemoglobin (Bld) [Mass/Vol] 13.3 g/dL Low 13.4 - 16.8 g/dL [facility] Interpretation and review of laboratory results Abnormal [facility] Oxyhemoglobin 69 % Low 94 - 98 % [facility] Ordering physician notified. Test performed at address of the patient encounter. [facility] PT,INR,PTTon 01-20-2024 aPTT Coag (Bld) [Time] 30.6 s Normal 24.0-34.3 [facility] Comment on above: Performed By: #### P TPTT ####[facility] (DEFAULT)[address] [place] [address] INR Coag (PPP) [Relative time] 1.2 {INR} High 0.9-1.1 [facility] Comment on above: Performed By: #### P TPTT ####[facility] (DEFAULT)[address] [place] [address] PT Coag (PPP) [Time] 15.5 s High 11.9-14.2 [facility] Comment on above: Performed By: #### P TPTT ####[facility] (DEFAULT)[address] [place] [address] aPTT Coag (PPP) [Time] 30.6 s [facility] INR Coag (Bld) [Relative time] 1.2 {INR} High 0.9 - 1.1 [facility] Interpretation and review of laboratory results Abnormal [facility] PT Coag (PPP) [Time] 15.5 s High [facility] TACROLIMUS LEVEL, TROUGH ([place] E DRUG LEVEL)Ordered By: Yanira Marcum on 01-20-2024 Interpretation and review of laboratory results Normal [facility] Tacrolimus (Bld) [Mass/Vol] 7.7 ng/mL Bone Marrow Transplant: 4.0-12.0, Therapeutic: 5.0-15.0 [facility] Method performed is a chemiluminescent microparticle immunoasssay on the [employer] i2000. The range is based on experience at [facility] and users should be aware that target concentrations vary widely depending on concomitant therapy, time post-transplant, and desired degree of immunosuppression. [facility] TACROLIMUS LEVEL, TROUGH ([place] E DRUG LEVEL)on 01-20-2024 Tacrolimus, Trough 7.7 ng/mL Normal Bone Susana ow Transplant: 4.0-12.0, Therapeutic: 5.0-15.0 [facility] Comment on above: Order Comment: Pleas e draw at specified interval PRIOR to dose. Do not hold dose to wait for level. Specimens batched twice per day, (M-F) and once per day weekendsMethod performed is a chemiluminescent microparticle immunoasssay on the [employer] Dyer i2000.The range is based on experience at [facility] and users should be aware that target concentrations vary widely depending on concomitant therapy, time post-transplant, and desired degree of immunosuppression. Performed By: #### T ACRO ####[facility] (DEFAULT)[address] [place], [place] [id number] CBC,PLATELETSon 01-19-2024 Hematocrit (Bld) [Volume fraction] 37.5 % Low 39.6-48.8 [facility] Comment on above: Performed By: #### H EMOGC ####[facility] (DEFAULT)[address] [place] [address] Hemoglobin (Bld) [Mass/Vol] 12.1 g/dL Low 13.4-16.8 [facility] Comment on above: Performed By: #### H EMOGC ####[facility] (DEFAULT)[address] [place] [address] MCV (RBC) [Entitic vol] 87.8 fL Normal 79.0-94.5 [facility] Comment on above: Performed By: #### H EMOGC ####[facility] (DEFAULT)[address] [facility] [place] [address] Mean Cell Hgb 28.3 pg Normal 26.1-33.3 [facility] Comment on above: Performed By: #### H EMOGC ####[facility] (DEFAULT)[address] [facility] [place] [address] Mean Cell Hgb Conc 32.3 g/dL Normal 31.9-36.5 [facility] Comment on above: Performed By: #### H EMOGC ####[facility] (DEFAULT)[address] [place] [address] Platelet mean volume (Bld) [Entitic vol] 10.4 fL Normal 8.7-12.3 [facility] Comment on above: Performed By: #### H EMOGC ####[facility] (DEFAULT)[address] [place] [address] Platelets (Bld) [#/Vol] 163 10*3/uL Normal 146-337 [facility] Comment on above: Performed By: #### H EMOGC ####[facility] (DEFAULT)[address] [place] [address] RBC (Bld) [#/Vol] 4.27 10*6/uL Low 4.38-5.83 [facility] Comment on above: Performed By: #### H EMOGC ####[facility] (DEFAULT)[address] [place] [address] RBC Distribution 13.9 % Normal 10.9-14.3 [facility] Comment on above: Performed By: #### [facility] ####[facility] (DEFAULT)[address] [place] [address] WBC (Bld) [#/Vol] 3.69 10*3/uL Low 3.73-10.10 [facility] Comment on above: Performed By: #### [facility] ####[facility] (DEFAULT)[address] [place] [address] Erythrocyte distribution width (RBC) [Ratio] 13.9 % 10.9 - 14.3 % [facility] Hematocrit (Bld) [Volume fraction] 37.5 % Low 39.6 - 48.8 % [facility] Hemoglobin (Bld) [Mass/Vol] 12.1 g/dL Low 13.4 - 16.8 g/dL [facility] Interpretation and review of laboratory results Abnormal [facility] MCH (RBC) [Entitic mass] 28.3 pg 26.1 - 33.3 pg [facility] MCHC (RBC) [Mass/Vol] 32.3 g/dL 31.9 - 36.5 g/dL [facility] MCV (RBC) [Entitic vol] 87.8 fL 79.0 - 94.5 fL [facility] Platelet mean volume (Bld) [Entitic vol] 10.4 fL 8.7 - 12.3 fL [facility] Platelets (Bld) [#/Vol] 163 10*3/uL 146 - 337 K/uL [facility] RBC (Bld) [#/Vol] 4.27 10*6/uL Low [facility] WBC (Bld) [#/Vol] 3.69 10*3/uL Low 3.73 - 10. 10 K/uL [facility] CHEM 7 (LYTES,BUN,CREA,GLUC) on 01-19-2024 Anion gap [Moles/Vol] 14 mmol/L Normal 7-17 [facility] Comment on above: Performed By: #### TJ RAMÍREZ7 ####[facility] (DEFAULT)[address] [facility] [place] [address] Chloride [Moles/Vol] 106 mmol/L Normal 98-108 [facility] Comment on above: Performed By: #### TJ RAMÍREZ7 ####[facility] (DEFAULT)[address] [facility] [place] [address] CO2 [Moles/Vol] 24 mmol/L Normal 21-31 [facility] Comment on above: Performed By: #### TJ RAMÍREZ7 ####[facility] (DEFAULT)[address] [facility] [place] [address] Creatinine [Mass/Vol] 1.13 mg/dL Normal 0.70-1.30 [facility] Comment on above: Performed By: #### TJ RAMÍREZ7 ####[facility] (DEFAULT)[address] [place] [address] GFR/1.73 sq M.predicted among non-blacks MDRD (S/P/Bld) [Vol rate/Area] 78 mL/min/{1.73_m2} Normal >=60 [facility] Comment on above: Result Comment: Repo rted eGFR is based on the CKD-EPI 2020 equation using creatinine, age, and sex. Performed By: #### TJ RAMÍREZ7 ####[facility] (DEFAULT)[address] [facility] [place] [address] Glucose [Mass/Vol] 86 mg/dL Normal 70-99 [facility] Comment on above: Performed By: #### TJ RAMÍREZ7 ####[facility] (DEFAULT)[address] [facility] [place] [address] Osmolality [Osmolality] 293 mosm/kg Normal 278-305 [facility] Comment on above: Performed By: #### TJ RAMÍREZ7 ####[facility] (DEFAULT)[address] [place] [address] Potassium [Moles/Vol] 3.8 mmol/L Normal 3.5-5.0 [facility] Comment on above: Performed By: #### Rod BLOOM CHM7 ####[facility] (DEFAULT)[address] [facility] [place] [place] [address] Sodium [Moles/Vol] 140 mmol/L Normal 135-145 [facility] Comment on above: Performed By: #### Rod BLOOM CHM7 ####[facility] (DEFAULT)[address] [facility] [place] [address] Urea nitrogen [Mass/Vol] 16 mg/dL Normal 7-25 [facility] Comment on above: Performed By: #### Rod BLOOM CHM7 ####[facility] (DEFAULT)[address] [facility] [place] [address] Urea nitrogen/Creatinine [Mass ratio] 14 mg/mg Normal [facility] Comment on above: Performed By: #### Rod BLOOM CHM7 ####[facility] (DEFAULT)[address] [place] [address] Anion gap [Moles/Vol] 14 mmol/L 7 - 17 mmol/L [facility] Chloride [Moles/Vol] 106 mmol/L 98 - 10 8 mmol/L [facility] CO2 [Moles/Vol] 24 mmol/L 21 - 31 mmol/L [facility] Creatinine [Mass/Vol] 1.13 mg/dL 0.70 - 1.30 mg/dL [facility] eGFR, CKD-EPI, Male 79 - PINF [facility] Comment on above: Reported eGFR is bas ed on the CKD-EPI 2020 equation using creatinine, age, and sex. Glucose [Mass/Vol] 86 mg/dL 70 - 99 mg/dL [facility] Osmolality Calc [Osmolality] 293 [facility] Potassium [Moles/Vol] 3.8 mmol/L 3.5 - 5.0 mmol/L [facility] Sodium [Moles/Vol] 140 mmol/L 135 - 145 mmol/L [facility] Urea nitrogen [Mass/Vol] 16 mg/dL 7 - 25 mg/dL [facility] Urea nitrogen/Creatinine [Mass ratio] 14 mg/mg [facility] EBV BY PCR, QUANTITATIVE,BLO ODon 01-19-2024 Ebv By Pcr, Quant, Blood <1000 Normal <1000 [facility] Comment on above: Order Comment: This test was performed using a real time PCR assay. The dynamic range for this assay is 1000-5,000,000 IU/mL. A result <1000 IU/mL does not rule out the presence of EBV DNA in quantities below the sensitivity of this assay. This test was developed and its performance characteristics determined by The [facility] at [facility] [place]. It has not been cleared or approved by the FDA. The laboratory is regulated under CLIA as qualified to perform high-complexity testing. This test is used for clinical purposes. It should not be regarded as investigational or for research. Performed By: #### E BVPCR ####[facility] (DEFAULT)[address] [place] [address] HISTOPLASMA AND BLASTOMYCES ANTIGEN, ENZYME IMMUNOASSAY, SERMon 01-19-2024 Histoplasma/Blastomy antonia Ag Result Not detected Not Detected [facility] Comment on above: No antigen from Hist oplasma or Blastomyces detected. False negative results may occur depending on extent of disease, and/or site of infection. Repeat testing on a new specimen if clinically indicated. Histoplasma/Blastomy antonia Ag Value Not detected ng/mL [facility] Comment on above: ADDITIONAL INFORMATION This test was developed and its performance characteristics determined by [facility] in a manner consistent with CLIA requirements. This test has not been cleared or approved by the U.S. Food and Drug Administration. Test Performed by: [facility] [id number] [place] [address] Cat Sitter: Rosendo Bose M.D. Ph.D.; CLIA# [id number] [facility] MAGNESIUMon 01-19-2024 Magnesium [Mass/Vol] 1.8 mg/dL Normal 1.6-2.6 [facility] Comment on above: Performed By: #### M MERLE, CHM7 ####[facility] (DEFAULT)[address] [place] [address] Interpretation and review of laboratory results Normal [facility] Magnesium [Mass/Vol] 1.8 mg/dL 1.6 - 2 .6 mg/dL [facility] No Panel Informationon 01-19 [facility] TACROLIMUS LEVEL, TROUGH ([place] E DRUG LEVEL)Ordered By: Raymundo Mehta on 01-19-2024 Interpretation and review of laboratory results Normal [facility] Tacrolimus (Bld) [Mass/Vol] 6.8 ng/mL Bone Marrow Transplant: 4.0-12.0, Therapeutic: 5.0-15.0 [facility] Method performed is a chemiluminescent microparticle immunoasssay on the [employer] i2000. The range is based on experience at [facility] and users should be aware that target concentrations vary widely depending on concomitant therapy, time post-transplant, and desired degree of immunosuppression. [facility] TACROLIMUS LEVEL, TROUGH ([place] E DRUG LEVEL)on 01-19-2024 Tacrolimus, Trough 6.8 ng/mL Normal Bone Susana ow Transplant: 4.0-12.0, Therapeutic: 5.0-15.0 [facility] Comment on above: Order Comment: Pleas e draw at specified interval PRIOR to dose. Do not hold dose to wait for level. Specimens batched twice per day, (M-F) and once per day weekendsMethod performed is a chemiluminescent microparticle immunoasssay on the [employer] Dyer i2000.The range is based on experience at [facility] and users should be aware that target concentrations vary widely depending on concomitant therapy, time post-transplant, and desired degree of immunosuppression. Performed By: #### T ACRO ####[facility] (DEFAULT)[address] [place] [address] US AV fistulaOrdered By: Diana Reyes on 01-19-2024 [facility] Work Phone: US AV fistulaon 01-19-2024 Radiology Study observation (narrative) [facility] AFP TUMOR MARKEROrdered By: Francisca Alaniz on 01-18-2024 AFP.tumor marker [Mass/Vol] ng/mL NINF - 8.1 ng/mL [facility] Comment on above: This test was perfor med on the g2One Immunoassay platform by [employer] which is a two-site sandwich chemiluminescent immunoassay. It is important to note that assays using different manufacturers and/or methods may not be comparable. Interpretation and review of laboratory results Normal [facility] CBC,PLATELETSon 01-18-2024 Hematocrit (Bld) [Volume fraction] 38.4 % Low 39.6-48.8 [facility] Comment on above: Performed By: #### [facility] ####[facility] (DEFAULT)[address] [place] [address], [place] [address] Hemoglobin (Bld) [Mass/Vol] 12.1 g/dL Low 13.4-16.8 [facility] Comment on above: Performed By: #### [facility] ####[facility] (DEFAULT)[address] [place] [address] MCV (RBC) [Entitic vol] 88.3 fL Normal 79.0-94.5 [facility] Comment on above: Performed By: #### [facility] ####[facility] (DEFAULT)[address] [place] [address], [place] [address] Mean Cell Hgb 27.8 pg Normal 26.1-33.3 [facility] Comment on above: Performed By: #### H EMO ####[facility] (DEFAULT)[address] [facility] [place] [address] Mean Cell Hgb Conc 31.5 g/dL Low 31.9-36.5 [facility] Comment on above: Performed By: #### H EMO ####[facility] (DEFAULT)[address] [place] [address] Platelet mean volume (Bld) [Entitic vol] 10.4 fL Normal 8.7-12.3 [facility] Comment on above: Performed By: #### H EMO ####[facility] (DEFAULT)[address] [place] [address] Platelets (Bld) [#/Vol] 183 10*3/uL Normal 146-337 [facility] Comment on above: Performed By: #### H EMO ####[facility] (DEFAULT)[address] [place] [address] RBC (Bld) [#/Vol] 4.35 10*6/uL Low 4.38-5.83 [facility] Comment on above: Performed By: #### H EMO ####[facility] (DEFAULT)[address] [place] [address] RBC Distribution 13.9 % Normal 10.9-14.3 [facility] Comment on above: Performed By: #### H EMO ####[facility] (DEFAULT)[address] [place] [address] WBC (Bld) [#/Vol] 3.66 10*3/uL Low 3.73-10.10 [facility] Comment on above: Performed By: #### H EMO ####[facility] (DEFAULT)[address] [place] [address] Erythrocyte distribution width (RBC) [Ratio] 13.9 % 10.9 - 14.3 % [facility] Hematocrit (Bld) [Volume fraction] 38.4 % Low 39.6 - 48.8 % [facility] Hemoglobin (Bld) [Mass/Vol] 12.1 g/dL Low 13.4 - 16.8 g/dL [facility] Interpretation and review of laboratory results Abnormal [facility] MCH (RBC) [Entitic mass] 27.8 pg 26.1 - 33.3 pg [facility] MCHC (RBC) [Mass/Vol] 31.5 g/dL Low 31.9 - 36.5 g/dL [facility] MCV (RBC) [Entitic vol] 88.3 fL 79.0 - 94.5 fL [facility] Platelet mean volume (Bld) [Entitic vol] 10.4 fL 8.7 - 12.3 fL [facility] Platelets (Bld) [#/Vol] 183 10*3/uL 146 - 337 K/uL [facility] RBC (Bld) [#/Vol] 4.35 10*6/uL Low [facility] WBC (Bld) [#/Vol] 3.66 10*3/uL Low 3.73 - 10. 10 K/uL [facility] CHEM 7 (LYTES,BUN,CREA,GLUC) on 01-18-2024 Anion gap [Moles/Vol] 11 mmol/L Normal 7-17 [facility] Comment on above: Performed By: #### C HM7, HFP, MGO, TSHQR ####[facility] (DEFAULT)[address] [place] [address] Chloride [Moles/Vol] 108 mmol/L Normal 98-108 [facility] Comment on above: Performed By: #### C HM7, HFP, MGO, TSHQR ####[facility] [facility] (DEFAULT)[address] [facility] [place] [address] CO2 [Moles/Vol] 26 mmol/L Normal 21-31 [facility] Comment on above: Performed By: #### C HM7, HFP, MGO, TSHQR ####[facility] (DEFAULT)[address] [place] [address] Creatinine [Mass/Vol] 1.00 mg/dL Normal 0.70-1.30 [facility] Comment on above: Performed By: #### C HM7, HFP, MGO, TSHQR ####[facility] (DEFAULT)[address] [place] [address] eGFR, CKD-EPI, Male > Normal >=60 [facility] Comment on above: Result Comment: Repo rted eGFR is based on the CKD-EPI 2020 equation using creatinine, age, and sex. Performed By: #### C HM7, HFP, MGO, TSHQR ####[facility] (DEFAULT)[address] [place] [address] Glucose [Mass/Vol] 89 mg/dL Normal 70-99 [facility] Comment on above: Performed By: #### C HM7, HFP, MGO, TSHQR ####[facility] (DEFAULT)[address] [place] [address] Osmolality [Osmolality] 295 mosm/kg Normal 278-305 [facility] Comment on above: Performed By: #### C HM7, HFP, MGO, TSHQR ####[facility] (DEFAULT)[address] [place] [address] Potassium [Moles/Vol] 3.9 mmol/L Normal 3.5-5.0 [facility] Comment on above: Performed By: #### C HM7, HFP, MGO, TSHQR ####[facility] (DEFAULT)[address] [place] [address] Sodium [Moles/Vol] 141 mmol/L Normal 135-145 [facility] Comment on above: Performed By: #### C HM7, HFP, MGO, TSHQR ####[facility] (DEFAULT)[address] [place] [address] Urea nitrogen [Mass/Vol] 16 mg/dL Normal 7-25 [facility] Comment on above: Performed By: #### C HM7, HFP, MGO, TSHQR ####[facility] (DEFAULT)[address] [place] [address] Urea nitrogen/Creatinine [Mass ratio] 16 mg/mg Normal [facility] Comment on above: Performed By: #### C HM7, HFP, MGO, TSHQR ####[facility] (DEFAULT)[address] [place] [address] Anion gap [Moles/Vol] 11 mmol/L 7 - 17 mmol/L [facility] Chloride [Moles/Vol] 108 mmol/L 98 - 10 8 mmol/L [facility] CO2 [Moles/Vol] 26 mmol/L 21 - 31 mmol/L [facility] Creatinine [Mass/Vol] 1.00 mg/dL 0.70 - 1.30 mg/dL [facility] eGFR, CKD-EPI, Male - PINF [facility] Comment on above: Reported eGFR is bas ed on the CKD-EPI 2020 equation using creatinine, age, and sex. Glucose [Mass/Vol] 89 mg/dL 70 - 99 mg/dL [facility] Osmolality Calc [Osmolality] 295 [facility] Potassium [Moles/Vol] 3.9 mmol/L 3.5 - 5.0 mmol/L [facility] Sodium [Moles/Vol] 141 mmol/L 135 - 145 mmol/L [facility] Urea nitrogen [Mass/Vol] 16 mg/dL 7 - 25 mg/dL [facility] Urea nitrogen/Creatinine [Mass ratio] 16 mg/mg [facility] Cardiac echo study Procedure Ordered By: Gian Carlos on 01-18-2024 Ao ASC index 1.63 cm/m2 [facility] Work Phone: Ao peak meliton 1.46 m/s [facility] Work Phone: Ao SOV index 1.56 cm/m2 [facility] Work Phone: Ao STJ index 1.25 cm/m2 [facility] Work Phone: Ao VTI 35.74 cm [facility] Work Phone: [facility] AV LVOT peak gradient 4 mmHg [facility] Work Phone: AV mean gradient 5 mmHg [facility] Work Phone: AV peak gradient 9 mmHG [facility] Work Phone: AV valve area 3.09 cm2 [facility] Work Phone: AV Velocity Ratio 0.73 [facility] Work Phone: VEGA (continuity Vmax) 3.01 cm2 [facility] Work Phone: VEGA (continuity VTI) 3.09 cm2 [facility] Work Phone: VEGA index (continuity Vmax) 1.45 m/s [facility] Work Phone: VEGA index (continuity VTI) 1.49 cm2/m2 [facility] Work Phone: Avg e' pk meliton 0.07 m/s [facility] Work Phone: Avg E/e' ratio 19.45 [facility] Work Phone: Body surface area Derived from formula 2.08 m2 [facility] Work Phone: BP EF 62 % [facility] Work Phone: DI (Vmax) 0.73 [facility] Work Phone: DI (VTI) 0.74 m/2 [facility] Work Phone: E wave decelartion time 180.38 msec [facility] Work Phone: e' lateral pk meliton 0.0789 m/s [facility] Work Phone: e' lateral pk meliton 0.08 m/s [facility] Work Phone: e' septal pk meliton 0.0653 m/s [facility] Work Phone: e' septal pk meliton 0.07 m/s [facility] Work Phone: E/A ratio 2.67 [facility] Work Phone: E/e' lateral ratio 17.62 [facility] Work Phone: [facility]: EF SP 2CH 66 [facility] Work Phone: EF SP 4CH 58 [facility] Work Phone: FS 28 % 28 - 44 % [facility] Work Phone: IVC ostium 2.[address] [facility] Work Phone: IVS 1.11 cm [facility] Work Phone: LA AREA 2CH 24.36 cm2 [facility] Work Phone: LA area 4CH 20.[address] [facility] Work Phone: LA ESV BP (MOD) 64 mL [facility] Work Phone: LA ESV BP (MOD) index 31 mL/m2 [facility] Work Phone: LA ESV SP 2CH (MOD) 76 mL [facility] Work Phone: LA ESV SP 4CH (MOD) 53 mL [facility] Work Phone: [phone] LV EDV BP [address] [facility] Work Phone: LV EDV SP 2CH [address] Work Phone: [phone] LV EDV SP 4CH [address] Work Phone: [phone] LV ESV BP [address] Work Phone: [phone] LV ESV SP 2CH [address] [facility] Work Phone: [phone] LV ESV SP 4CH 70 mL [facility] Work Phone: LV mass 254.73 g [facility] Work Phone: [phone] LV Mass Index 122.5 g/m2 [facility] Work Phone: [phone] LV RWT 0.42 [facility] Work Phone: [phone] LV stroke volume BP (ml) 111 mL [facility] Work Phone: LV stroke volume index BP 53.37 mL/m2 [facility] Work Phone: [phone] LVIDD 5.53 cm [facility] Work Phone: LVIDS 3.97 cm [facility] Work Phone: LVOT area 4.15 cm2 [facility] Work Phone: LVOT diameter 2.30 cm [facility] Work Phone: LVOT peak meliton 1.06 m/s [facility] Work Phone: LVOT peak VTI 26.61 cm [facility] Work Phone: LVOT stroke volume [address] [facility] Work Phone: LVOT stroke volume index 53.13 ml/m2 [facility] Work Phone: Mr max meliton 4.21 m/s [facility] Work Phone: MR VTI 134.[address] [facility] Work Phone: [phone] MV mean gradient 3 mmHg [facility] Work Phone: MV peak gradient 11 mmHg [facility] Work Phone: MV pk A meliton 0.52 m/s [facility] Work Phone: MV pk E meliton 1.39 m/s [facility] Work Phone: MV stenosis pressure 1/2 time 58.56 ms [facility] Work Phone: MV valve area by continuity eq 2.93 cm2 [facility] Work Phone: MV valve area p 1/2 method 3.76 cm2 [facility] Work Phone: MV VTI 37.70 cm [facility] Work Phone: MVA (continuity VTI) 2.92 cm [facility] Work Phone: [facility] AV VTI RATIO PRE STRESS 0.74 [facility] Work Phone: [facility] ECHO LV BIPLANE SYSTOLIC VOLUME INDEX 33.17 mL/m2 [facility] Work Phone: OSU ECHO LV BP DIASTOLIC VOLUME INDEX 86.54 mL/m2 [facility] Work Phone: [facility] ECHO MR PEAK GRADIENT 70.94 mmHg [facility] Work Phone: PW 1.[address] [facility] Work Phone: RA area 4CH (MOD) 14.50 [facility]2 [facility]: RA vol index 4CH (MOD) 18.27 mL/m2 [facility] Work Phone: Right atrium volume 4 chamber method of disks [address] [facility] Work Phone: RV Area diastolic 33.20 cm2 [facility] Work [facility]: RV Area systolic 21.30 cm2 [facility] Work Phone: RV basal diam 4.52 cm [facility] Work Phone: RV Fractional area change 35.8 % [facility] Work Phone: RV long diam 8.96 cm [facility] Work Phone: RV mid diam 3.70 cm [facility] Work Phone: RV S' 22.01 cm/s [facility] Work Phone: RVOT peak gradient [address] [facility] Work Phone: RVOT peak meliton 0.96 m/s [facility] Work Phone: RVOT peak VTI 20.86 cm [facility] Work Phone: Sinus 3.24 cm [facility] Work Phone: STJ 2.61 cm [facility] Work Phone: Stroke Volume 111 cm/mL [facility] Work Phone: Stroke volume index 53 [facility] Work Phone: TAPSE 2.19 cm [facility] Work Phone: [facility] Work Phone: Cardiac echo study Procedure on 01-18-2024 Left Ventricle: John dandy size is normal. Increased wall thickness. [...] echocardiography study was performed. Imaging system used: [employer]. Indications Indications for study: shortness of breath. [facility] Radiology Study observation (narrative) [facility] HEPATIC FUNCTION PANELon Albumin [Mass/Vol] 3.5 g/dL Normal 3.5-5.0 [facility] Comment on above: Performed By: #### C HM7, HFP, MGO, TSHQR ####[facility] (DEFAULT)[address] [place] [address] ALP [Catalytic activity/Vol] 70 U/L Normal 32-126 [facility] Comment on above: Performed By: #### C HM7, HFP, MGO, TSHQR ####[facility] (DEFAULT)[address] [place] [address] ALT [Catalytic activity/Vol] 8 U/L Low 10-52 [facility] Comment on above: Performed By: #### C HM7, HFP, MGO, TSHQR ####[facility] (DEFAULT)[address] [place] [address] AST [Catalytic activity/Vol] 20 U/L Normal 10-39 [facility] Comment on above: Performed By: #### C HM7, HFP, MGO, TSHQR ####[facility] (DEFAULT)[address] [place] [address] Bilirubin [Mass/Vol] 1.7 mg/dL High <1.5 [facility] Comment on above: Performed By: #### C HM7, HFP, MGO, TSHQR ####[facility] (DEFAULT)[address] [place] [address] Bilirubin.indirect [Mass/Vol] 0.4 mg/dL High <0.3 [facility] Comment on above: Performed By: #### C HM7, HFP, MGO, TSHQR ####[facility] (DEFAULT)[address] [place] [address] Protein [Mass/Vol] 6.0 g/dL Low 6.4-8.3 [facility] Comment on above: Performed By: #### C HM7, HFP, MGO, TSHQR ####[facility] (DEFAULT)[address] [place] [address] Albumin [Mass/Vol] 3.5 g/dL 3.5 - 5.0 g/dL [facility] ALP [Catalytic activity/Vol] 70 U/L 32 - 126 U/L [facility] ALT [Catalytic activity/Vol] 8 U/L Low 10 - 52 U/L [facility] AST [Catalytic activity/Vol] 20 U/L 10 - 39 U/L [facility] Bilirubin [Mass/Vol] 1.7 mg/dL High NINF - 1.5 mg/dL [facility] Bilirubin.direct [Mass/Vol] 0.4 mg/dL High NINF - 0.3 mg/dL [facility] Protein [Mass/Vol] 6.0 g/dL Low 6.4 - 8.3 g/dL [facility] MAGNESIUMon 01-18-2024 Magnesium [Mass/Vol] 1.5 mg/dL Low 1.6-2.6 [facility] Comment on above: Performed By: #### C HM7, HFP, MGO, TSHQR ####[facility] (DEFAULT)[address] [place] [address] Magnesium [Mass/Vol] 1.5 mg/dL Low 1.6 - 2 .6 mg/dL [facility] No Panel Informationon 01-18 Interpretation and review of laboratory results Abnormal [facility] PT,INR,PTTon 01-18-2024 aPTT Coag (Bld) [Time] 30.0 s Normal 24.0-34.3 [facility] Comment on above: Performed By: #### P TPTT ####[facility] (DEFAULT)[address] [place] [address] INR Coag (PPP) [Relative time] 1.1 {INR} Normal 0.9-1.1 [facility] Comment on above: Performed By: #### P TPTT ####[facility] (DEFAULT)[address] [place] [address] PT Coag (PPP) [Time] 14.5 s High 11.9-14.2 [facility] Comment on above: Performed By: #### P TPTT ####[facility] (DEFAULT)[address] [place] [address] aPTT Coag (PPP) [Time] 30.0 s [facility] INR Coag (Bld) [Relative time] 1.1 {INR} 0.9 - 1.1 [facility] Interpretation and review of laboratory results Abnormal [facility] PT Coag (PPP) [Time] 14.5 s High [facility] TSH W/FT4 REFLEXon 4 Interpretation and review of laboratory results Normal [facility] TSH Qn 2.660 m[IU]/L [facility] TSH 2.660 uIU/mL Normal 0.550-4.780 [facility] Comment on above: Performed By: #### C HM7, HFP, MGO, TSHQR ####[facility] (DEFAULT)[address] [place] [address] AFP TUMOR MARKERon 4 AFP Tumor Marker <2.2 Normal <8.1 [facility] Comment on above: Result Comment: This test was performed on the g2One Immunoassay platform by [employer] which is a two-site sandwich chemiluminescent immunoassay. It is important to note that assays using different manufacturers and/or methods may not be comparable. Performed By: #### A FPTMR ####[facility] (DEFAULT)[address] [place] [address] DARYL AURIS SCREEN BY PCRO rdered By: Mynor Alejandro on 01-17-2024 Daryl auris Screen by PCR Not detected Not Detected [facility] Interpretation and review of laboratory results Normal [facility] This test was perfor med using a real-time PCR assay. This test was developed, and its performance characteristics determined by [facility] at [facility]. It has not been cleared or approved by the FDA. The laboratory is regulated under CLIA as qualified to perform high-complexity testing. This test is used for clinical purposes. It should not be regarded as investigational or for research. [facility] CBC,PLATELETSon 01-17-2024 Hematocrit (Bld) [Volume fraction] 37.2 % Low 39.6-48.8 [facility] Comment on above: Performed By: #### H EMOGC ####[facility] (DEFAULT)[address] [place] [address] Hemoglobin (Bld) [Mass/Vol] 12.0 g/dL Low 13.4-16.8 [facility] Comment on above: Performed By: #### H EMOGC ####[facility] (DEFAULT)[address] [place] [address] MCV (RBC) [Entitic vol] 86.5 fL Normal 79.0-94.5 [facility] Comment on above: Performed By: #### H EMOGC ####[facility] (DEFAULT)[address] [place] [address] Mean Cell Hgb 27.9 pg Normal 26.1-33.3 [facility] Comment on above: Performed By: #### H EMOGC ####[facility] (DEFAULT)[address] [place] [address] Mean Cell Hgb Conc 32.3 g/dL Normal 31.9-36.5 [facility] Comment on above: Performed By: #### H EMOGC ####[facility] (DEFAULT)[address] [place] [address] Platelet mean volume (Bld) [Entitic vol] 10.5 fL Normal 8.7-12.3 [facility] Comment on above: Performed By: #### H EMOGC ####[facility] (DEFAULT)[address] [place] [address] Platelets (Bld) [#/Vol] 159 10*3/uL Normal 146-337 [facility] Comment on above: Performed By: #### H EMOGC ####[facility] (DEFAULT)[address] [place] [address] RBC (Bld) [#/Vol] 4.30 10*6/uL Low 4.38-5.83 [facility] Comment on above: Performed By: #### [facility] ####[facility] (DEFAULT)[address] [place] [address] RBC Distribution 14.0 % Normal 10.9-14.3 [facility] Comment on above: Performed By: #### H [facility] ####[facility] (DEFAULT)[address] [place] [address] WBC (Bld) [#/Vol] 3.69 10*3/uL Low 3.73-10.10 [facility] Comment on above: Performed By: #### [facility] ####[facility] (DEFAULT)[address] [place] [address] Erythrocyte distribution width (RBC) [Ratio] 14.0 % 10.9 - 14.3 % [facility] Hematocrit (Bld) [Volume fraction] 37.2 % Low 39.6 - 48.8 % [facility] Hemoglobin (Bld) [Mass/Vol] 12.0 g/dL Low 13.4 - 16.8 g/dL [facility] Interpretation and review of laboratory results Abnormal [facility] MCH (RBC) [Entitic mass] 27.9 pg 26.1 - 33.3 pg [facility] MCHC (RBC) [Mass/Vol] 32.3 g/dL 31.9 - 36.5 g/dL [facility] MCV (RBC) [Entitic vol] 86.5 fL 79.0 - 94.5 fL [facility] Platelet mean volume (Bld) [Entitic vol] 10.5 fL 8.7 - 12.3 fL [facility] Platelets (Bld) [#/Vol] 159 10*3/uL 146 - 337 K/uL [facility] RBC (Bld) [#/Vol] 4.30 10*6/uL Low [facility] WBC (Bld) [#/Vol] 3.69 10*3/uL Low 3.73 - 10. 10 K/uL [facility] CHEM 7 (LYTES,BUN,CREA,GLUC) on 01-17-2024 Anion gap [Moles/Vol] 13 mmol/L Normal 7-17 [facility] Comment on above: Performed By: #### C HM7, HFP, MGO ####[facility] (DEFAULT)[address] [place] [address] Chloride [Moles/Vol] 109 mmol/L High 98-108 [facility] Comment on above: Performed By: #### C HM7, HFP, MGO ####[facility] (DEFAULT)[address] [place] [address] CO2 [Moles/Vol] 21 mmol/L Normal 21-31 [facility] Comment on above: Performed By: #### C HM7, HFP, MGO ####[facility] (DEFAULT)[address] [place] [address] Creatinine [Mass/Vol] 1.04 mg/dL Normal 0.70-1.30 [facility] Comment on above: Performed By: #### C HM7, HFP, MGO ####[facility] (DEFAULT)[address] [place] [address] GFR/1.73 sq M.predicted among non-blacks MDRD (S/P/Bld) [Vol rate/Area] 86 mL/min/{1.73_m2} Normal >=60 [facility] Comment on above: Result Comment: Repo rted eGFR is based on the CKD-EPI 2020 equation using creatinine, age, and sex. Performed By: #### C HM7, HFP, MGO ####[facility] (DEFAULT)[address] [facility] [place] [address] Glucose [Mass/Vol] 82 mg/dL Normal 70-99 [facility] Comment on above: Performed By: #### C HM7, HFP, MGO ####[facility] (DEFAULT)[address] [place] [address] Osmolality [Osmolality] 292 mosm/kg Normal 278-305 [facility] Comment on above: Performed By: #### C HM7, HFP, MGO ####[facility] (DEFAULT)[address] [place] [address] Potassium [Moles/Vol] 4.4 mmol/L Normal 3.5-5.0 [facility] Comment on above: Performed By: #### C HM7, HFP, MGO ####[facility] (DEFAULT)[address] [facility] [place] [address] Sodium [Moles/Vol] 139 mmol/L Normal 135-145 [facility] Comment on above: Performed By: #### C HM7, HFP, MGO ####[facility] (DEFAULT)[address] [facility] [place] [address] Urea nitrogen [Mass/Vol] 17 mg/dL Normal 7-25 [facility] Comment on above: Performed By: #### C HM7, HFP, MGO ####[facility] (DEFAULT)[address] [facility] [place] [address] Urea nitrogen/Creatinine [Mass ratio] 16 mg/mg Normal [facility] Comment on above: Performed By: #### C HM7, HFP, MGO ####[facility] (DEFAULT)[address] [facility] [place] [address] Anion gap [Moles/Vol] 13 mmol/L 7 - 17 mmol/L [facility] Chloride [Moles/Vol] 109 mmol/L High 98 - 10 8 mmol/L [facility] CO2 [Moles/Vol] 21 mmol/L 21 - 31 mmol/L [facility] Creatinine [Mass/Vol] 1.04 mg/dL 0.70 - 1.30 mg/dL [facility] eGFR, CKD-EPI, Male 86 - PINF [facility] Comment on above: Reported eGFR is bas ed on the CKD-EPI 2020 equation using creatinine, age, and sex. Glucose [Mass/Vol] 82 mg/dL 70 - 99 mg/dL [facility] Osmolality Calc [Osmolality] 292 [facility] Potassium [Moles/Vol] 4.4 mmol/L 3.5 - 5.0 mmol/L [facility] Sodium [Moles/Vol] 139 mmol/L 135 - 145 mmol/L [facility] Urea nitrogen [Mass/Vol] 17 mg/dL 7 - 25 mg/dL [facility] Urea nitrogen/Creatinine [Mass ratio] 16 mg/mg [facility] CT ABDOMEN/PELVIS WITHOUT CO NTRASTon 01-17-2024 CT ABDOMEN/PELVIS WITHOUT CONTRAST Normal [facility] CT Abdomen and Pelvis WO con traston [...] unremarkable. Kidneys: Severe atrophy of the bilateral [place] kidney is without hydronephrosis. Right lower quadrant [...] unremarkable. Kidneys: Severe atrophy of the bilateral [place] kidney is without hydronephrosis. Right lower quadrant [...] the middle lobe. Trace left pleural effusion. [facility] Radiology Study observation (narrative) [facility] HEPATIC FUNCTION PANELon Albumin [Mass/Vol] 3.5 g/dL Normal 3.5-5.0 [facility] Comment on above: Performed By: #### C HM7, HFP, MGO ####[facility] (DEFAULT)[address] [place] [address] ALP [Catalytic activity/Vol] 73 U/L Normal 32-126 [facility] Comment on above: Performed By: #### C HM7, HFP, MGO ####[facility] (DEFAULT)[address] [place] [address] ALT [Catalytic activity/Vol] 7 U/L Low 10-52 [facility] Comment on above: Performed By: #### C HM7, HFP, MGO ####[facility] (DEFAULT)[address] [place] [address] AST [Catalytic activity/Vol] 25 U/L Normal 10-39 [facility] Comment on above: Performed By: #### C HM7, HFP, MGO ####[facility] (DEFAULT)[address] [place] [address] Bilirubin [Mass/Vol] 1.8 mg/dL High <1.5 [facility] Comment on above: Performed By: #### C HM7, HFP, MGO ####[facility] (DEFAULT)[address] [place] [address] Bilirubin.indirect [Mass/Vol] 0.3 mg/dL High <0.3 [facility] Comment on above: Performed By: #### C HM7, HFP, MGO ####[facility] (DEFAULT)[address] [place] [address] Protein [Mass/Vol] 6.0 g/dL Low 6.4-8.3 [facility] Comment on above: Performed By: #### C HM7, HFP, MGO ####[facility] [facility] (DEFAULT)[address] [place] [address] Albumin [Mass/Vol] 3.5 g/dL 3.5 - 5.0 g/dL [facility] ALP [Catalytic activity/Vol] 73 U/L 32 - 126 U/L [facility] ALT [Catalytic activity/Vol] 7 U/L Low 10 - 52 U/L [facility] AST [Catalytic activity/Vol] 25 U/L 10 - 39 U/L [facility] Bilirubin [Mass/Vol] 1.8 mg/dL High NINF - 1.5 mg/dL [facility] Bilirubin.direct [Mass/Vol] 0.3 mg/dL High NINF - 0.3 mg/dL [facility] Protein [Mass/Vol] 6.0 g/dL Low 6.4 - 8.3 g/dL [facility] HISTOPLASMA AND BLASTOMYCES ANTIGEN, ENZYME IMMUNOASSAY, SERMon 01-17-2024 Histoplasma/Blastomy antonia Ag Result Not detected Normal Not Detected [facility] Comment on above: Result Comment: No a ntigen from Histoplasma or Blastomyces detected. Falsenegative results may occur depending on extent of disease,and/or site of infection. Repeat testing on a new specimenif clinically indicated. Performed By: #### H CORAL ####[facility] (DEFAULT)[address] [address] Histoplasma/Blastomy antonia Ag Value Not detected Normal [facility] Comment on above: Result Comment: ---- ADDITIONAL INFORMATION This test was developed and its performance characteristicsdetermined by [facility] in a manner consistent with CLIArequirements. This test has not been cleared or approved bythe U.S. Food and Drug Administration.Test Performed by:[place] [id number] Director: Rosendo Bose M.D. Ph.D.; CLIA# [id number] Performed By: #### H CORAL ####[facility] (DEFAULT)[address] [place] [address] MAGNESIUMon 01-17-2024 Magnesium [Mass/Vol] 1.7 mg/dL Normal 1.6-2.6 [facility] Comment on above: Performed By: #### C HM7, HFP, MGO ####[facility] (DEFAULT)[address] [place] [address] Interpretation and review of laboratory results Normal [facility] Magnesium [Mass/Vol] 1.7 mg/dL 1.6 - 2 .6 mg/dL [facility] No Panel Informationon 01-17 Interpretation and review of laboratory results Abnormal [facility] PT,INR,PTTon 01-17-2024 aPTT Coag (PPP) [Time] 29.9 s [facility] INR Coag (Bld) [Relative time] 1.1 {INR} 0.9 - 1.1 [facility] Interpretation and review of laboratory results Abnormal [facility] PT Coag (PPP) [Time] 14.5 s High [facility] aPTT Coag (Bld) [Time] 29.9 s Normal 24.0-34.3 [facility] Comment on above: Performed By: #### P TPTT ####[facility] (DEFAULT)[address] [place] [address] INR Coag (PPP) [Relative time] 1.1 {INR} Normal 0.9-1.1 [facility] Comment on above: Performed By: #### P TPTT ####[facility] (DEFAULT)[address] [place] [address] PT Coag (PPP) [Time] 14.5 s High 11.9-14.2 [facility] Comment on above: Performed By: #### P TPTT ####[facility] (DEFAULT)[address] [place] [address] B-TYPE NATRIURETIC PEPTIDE ( BRAIN)on 01-16-2024 Interpretation and review of laboratory results Abnormal [facility] Natriuretic peptide B (Bld) [Mass/Vol] 212 pg/mL High 0 - 100 pg/mL [facility] Natriuretic peptide B (Bld) [Mass/Vol] 212 pg/mL High 0-100 [facility] Comment on above: Performed By: #### B MAILROOM ASSISTANT ####[facility] (DEFAULT)[address] [place] [address] CALCIUMon 01-16-2024 Calcium [Mass/Vol] 8.5 mg/dL Low 8.6-10.5 [facility] Comment on above: Performed By: #### C A, CHM7, IPB, MGO, HFP ####[facility] (DEFAULT)[address] [place] [address] Calcium [Mass/Vol] 8.5 mg/dL Low 8.6 - 10. 5 mg/dL [facility] DARYL AURIS SCREEN BY PCRo n 01-16-2024 Daryl auris Screen by PCR Not detected Normal Not Detected [facility] Comment on above: Order Comment: This test was performed using a real-time PCR assay. This test was developed, and its performance characteristics determined by The [facility] at [facility]. It has not been cleared or approved by the FDA. The laboratory is regulated under CLIA as qualified to perform high-complexity testing. This test is used for clinical purposes. It should not be regarded as investigational or for research. Performed By: #### C ANDIDA AURIS SCREEN BY PCR ####[facility] (DEFAULT)[address] [place] [address] CBC AND ELECTRONIC DIFFon Abs Baso Auto < Normal 0.00-0.09 [facility] Comment on above: Performed By: #### L [id number] ####[facility] (DEFAULT)[address] [place] [address] Basophils/100 WBC (Bld) 0.6 % Normal [facility] Comment on above: Performed By: #### L [id number] ####[facility] (DEFAULT)[address] [place] [address] DIFF STATUS Electronic Differential Normal [facility] Comment on above: Performed By: #### L [id number] ####[facility] (DEFAULT)[address] [facility] [place] [address] Eosinophils (Bld) [#/Vol] 0.09 10*3/uL Normal 0.00-0.48 [facility] Comment on above: Performed By: #### L [id number] ####[facility] (DEFAULT)[address] [place] [address] Eosinophils/100 WBC (Bld) 2.5 % Normal [facility] Comment on above: Performed By: #### L [id number] ####[facility] (DEFAULT)[address] [place] [address] Hematocrit (Bld) [Volume fraction] 37.4 % Low 39.6-48.8 [facility] Comment on above: Performed By: #### L [id number] ####[facility] (DEFAULT)[address] [place] [address] Hemoglobin (Bld) [Mass/Vol] 12.1 g/dL Low 13.4-16.8 [facility] Comment on above: Performed By: #### L [id number] ####[facility] (DEFAULT)[address] [facility] [place] [address] Immature Grans % 0.3 % Normal [facility] Comment on above: Performed By: #### L [id number] ####[facility] (DEFAULT)[address] [place], [place] [address], [place] [address] Immature Grans Absolute < Normal <=0.07 [facility] Comment on above: Performed By: #### L [id number] ####[facility] (DEFAULT)[address] [facility] [place] [address] Lymphocytes (Bld) [#/Vol] 1.16 10*3/uL Normal 0.83-3.57 [facility] Comment on above: Performed By: #### L [id number] ####[facility] (DEFAULT)[address] [facility] [place] [address] Lymphocytes/100 WBC (Bld) 32.0 % Normal [facility] Comment on above: Performed By: #### L [id number] ####[facility] (DEFAULT)[address] [facility] [place] [address] MCV (RBC) [Entitic vol] 87.8 fL Normal 79.0-94.5 [facility] Comment on above: Performed By: #### L [id number] ####[facility] (DEFAULT)[address] [facility] [place] [address] Mean Cell Hgb 28.4 pg Normal 26.1-33.3 [facility] Comment on above: Performed By: #### L AB980 ####[facility] (DEFAULT)[address] [place] [facility] [address] Mean Cell Hgb Conc 32.4 g/dL Normal 31.9-36.5 [facility] Comment on above: Performed By: #### L [id number] ####[facility] (DEFAULT)[address] [place] [address] Monocytes (Bld) [#/Vol] 0.43 10*3/uL Normal 0.24-0.93 [facility] Comment on above: Performed By: #### L AB980 ####[facility] (DEFAULT)[address] [facility] [place] [address] Monocytes/100 WBC (Bld) 11.9 % Normal [facility] Comment on above: Performed By: #### L [id number] ####[facility] (DEFAULT)[address] [facility] [place] [address] Nucleated RBC 0.0 /100 WBC Normal <=0.2 [facility] Comment on above: Performed By: #### L [id number] ####[facility] (DEFAULT)[address] [place] [address] Platelet mean volume (Bld) [Entitic vol] 10.1 fL Normal 8.7-12.3 [facility] Comment on above: Performed By: #### L [id number] ####[facility] (DEFAULT)[address] [place] [address] Platelets (Bld) [#/Vol] 155 10*3/uL Normal 146-337 [facility] Comment on above: Performed By: #### L [id number] ####[facility] (DEFAULT)[address] [facility] [place] [address] RBC (Bld) [#/Vol] 4.26 10*6/uL Low 4.38-5.83 [facility] Comment on above: Performed By: #### L [id number] ####[facility] (DEFAULT)[address] [facility] [place] [address] RBC Distribution 14.0 % Normal 10.9-14.3 [facility] Comment on above: Performed By: #### L [id number] ####[facility] (DEFAULT)[address] [facility] [place] [address] Segs + Bands Auto 52.7 % Normal [facility] Comment on above: Performed By: #### L [id number] ####[facility] (DEFAULT)[address] [facility] [place] [address] Segs + Bands,Absolute Auto 1.91 K/uL Normal 1.57-6.19 [facility] Comment on above: Performed By: #### L [id number] ####[facility] (DEFAULT)[address] [facility] [place] [address] WBC (Bld) [#/Vol] 3.62 10*3/uL Low 3.73-10.10 [facility] Comment on above: Performed By: #### L [id number] ####[facility] (DEFAULT)[address] [facility] [place] [address] Basophils (Bld) [#/Vol] K/uL 0.00 - 0.09 K/uL [facility] Basophils/100 WBC (Bld) 0.6 % [facility] Differential cell count method Nom (Bld) Electronic Differential [facility] Eosinophils (Bld) [#/Vol] 0.09 10*3/uL 0.00 - 0.48 K/uL [facility] Eosinophils/100 WBC (Bld) 2.5 % [facility] Erythrocyte distribution width (RBC) [Ratio] 14.0 % 10.9 - 14.3 % [facility] Hematocrit (Bld) [Volume fraction] 37.4 % Low 39.6 - 48.8 % [facility] Hemoglobin (Bld) [Mass/Vol] 12.1 g/dL Low 13.4 - 16.8 g/dL [facility] Immature granulocytes (Bld) [#/Vol] K/uL NINF - 0.07 K/uL [facility] Immature granulocytes/100 WBC (Bld) 0.3 % [facility] Interpretation and review of laboratory results Abnormal [facility] Lymphocytes (Bld) [#/Vol] 1.16 10*3/uL 0.83 - 3.57 K/uL [facility] Lymphocytes/100 WBC (Bld) 32.0 % [facility] MCH (RBC) [Entitic mass] 28.4 pg 26.1 - 33.3 pg [facility] MCHC (RBC) [Mass/Vol] 32.4 g/dL 31.9 - 36.5 g/dL [facility] MCV (RBC) [Entitic vol] 87.8 fL 79.0 - 94.5 fL [facility] Monocytes (Bld) [#/Vol] 0.43 10*3/uL 0.24 - 0.93 K/uL [facility] Monocytes/100 WBC (Bld) 11.9 % [facility] Neutrophils (Bld) [#/Vol] 1.91 10*3/uL 1.57 - 6.19 K/uL [facility] Nucleated RBC/100 WBC (Bld) [Ratio] 0.0 % NINF [facility] Platelet mean volume (Bld) [Entitic vol] 10.1 fL 8.7 - 12.3 fL [facility] Platelets (Bld) [#/Vol] 155 10*3/uL 146 - 337 K/uL [facility] RBC (Bld) [#/Vol] 4.26 10*6/uL Low [facility] Segmented neutrophils/100 WBC (Bld) 52.7 % [facility] WBC (Bld) [#/Vol] 3.62 10*3/uL Low 3.73 - 10. 10 K/uL [facility] CHEM 7 (LYTES,BUN,CREA,GLUC) on 01-16-2024 Anion gap [Moles/Vol] 11 mmol/L Normal 7-17 [facility] Comment on above: Performed By: #### C A, CHM7, IPB, MGO, HFP ####[facility] (DEFAULT)[address] [place] [address] Chloride [Moles/Vol] 108 mmol/L Normal 98-108 [facility] Comment on above: Performed By: #### C A, CHM7, IPB, MGO, HFP ####[facility] (DEFAULT)[address] [facility] [place] [address] CO2 [Moles/Vol] 24 mmol/L Normal 21-31 [facility] Comment on above: Performed By: #### C A, CHM7, IPB, MGO, HFP ####[facility] (DEFAULT)[address] [place] [address] Creatinine [Mass/Vol] 1.04 mg/dL Normal 0.70-1.30 [facility] Comment on above: Performed By: #### C A, CHM7, IPB, MGO, HFP ####[facility] (DEFAULT)[address] [place] [address] GFR/1.73 sq M.predicted among non-blacks MDRD (S/P/Bld) [Vol rate/Area] 86 mL/min/{1.73_m2} Normal >=60 [facility] Comment on above: Result Comment: Repo rted eGFR is based on the CKD-EPI 2020 equation using creatinine, age, and sex. Performed By: #### C Tray, CHM7, IPB, MGO, HFP ####[facility] (DEFAULT)[address] [place] [address] Glucose [Mass/Vol] 95 mg/dL Normal 70-99 [facility] Comment on above: Performed By: #### Chinedu Feliz, CHM7, IPB, MGO, HFP ####[facility] (DEFAULT)[address] [place] [address] Osmolality [Osmolality] 293 mosm/kg Normal 278-305 [facility] Comment on above: Performed By: #### Chinedu Feliz, CHM7, IPB, MGO, HFP ####[facility] (DEFAULT)[address] [place] [address] Potassium [Moles/Vol] 4.0 mmol/L Normal 3.5-5.0 [facility] Comment on above: Performed By: #### C Tray, CHM7, IPB, MGO, HFP ####[facility] (DEFAULT)[address] [place] [address] Sodium [Moles/Vol] 139 mmol/L Normal 135-145 [facility] Comment on above: Performed By: #### C Tray, CHM7, IPB, MGO, HFP ####[facility] (DEFAULT)[address] [place] [address] Urea nitrogen [Mass/Vol] 19 mg/dL Normal 7-25 [facility] Comment on above: Performed By: #### C A, CHM7, IPB, MGO, HFP ####[facility] (DEFAULT)[address] [place] [address] Urea nitrogen/Creatinine [Mass ratio] 18 mg/mg Normal [facility] Comment on above: Performed By: #### C A, CHM7, IPB, MGO, HFP ####[facility] (DEFAULT)[address] [place] [address] Anion gap [Moles/Vol] 11 mmol/L 7 - 17 mmol/L [facility] Chloride [Moles/Vol] 108 mmol/L 98 - 10 8 mmol/L [facility] CO2 [Moles/Vol] 24 mmol/L 21 - 31 mmol/L [facility] Creatinine [Mass/Vol] 1.04 mg/dL 0.70 - 1.30 mg/dL [facility] eGFR, CKD-EPI, Male 86 - PINF [facility] Comment on above: Reported eGFR is bas ed on the CKD-EPI 2020 equation using creatinine, age, and sex. Glucose [Mass/Vol] 95 mg/dL 70 - 99 mg/dL [facility] Osmolality Calc [Osmolality] 293 [facility] Potassium [Moles/Vol] 4.0 mmol/L 3.5 - 5.0 mmol/L [facility] Sodium [Moles/Vol] 139 mmol/L 135 - 145 mmol/L [facility] Urea nitrogen [Mass/Vol] 19 mg/dL 7 - 25 mg/dL [facility] Urea nitrogen/Creatinine [Mass ratio] 18 mg/mg [facility] D-DIMER,QUANTITATIVEon 01-16 D-Dimer, High Sensitivity 0.67 mcg/mL FEU High <0.50 [facility] Comment on above: Result Comment: The D-Dimer assay is intended for use in conjuction with a clinical pretest probability (PTP) assessment model to exclude pulmonary embolism (PE) and as an aid in the diagnosis of Deep Vein Thrombosis (DVT) in outpatients suspected of PE or DVT. For the assay in use at [facility] ([facility]), a cutoff of <0.50 mcg/mL has a Negative Predictive Value of 99.7% for exclusion of DVT in low and moderate PTP patients. Performed By: #### P TPTT, HSDDI ####[facility] (DEFAULT)[address] [place] [address] D-DIMER,QUANTITATIVEOrdered By: Shaji Kelly on 01-16-2024 Fibrin D-dimer FEU (PPP) [Mass/Vol] 0.67 High [facility] Comment on above: The D-Dimer assay is intended for use in conjuction with a clinical pretest probability (PTP) assessment model to exclude pulmonary embolism (PE) and as an aid in the diagnosis of Deep Vein Thrombosis (DVT) in outpatients suspected of PE or DVT. For the assay in use at [facility] ([facility]), a cutoff of <0.50 mcg/mL has a Negative Predictive Value of 99.7% for exclusion of DVT in low and moderate PTP patients. Interpretation and review of laboratory results Abnormal [facility] HEPATIC FUNCTION PANELon Albumin [Mass/Vol] 3.7 g/dL Normal 3.5-5.0 [facility] Comment on above: Performed By: #### C Tray, CHM7, IPB, MGO, HFP ####[facility] (DEFAULT)[address] [place] [address] ALP [Catalytic activity/Vol] 70 U/L Normal 32-126 [facility] Comment on above: Performed By: #### C Tray, CHM7, IPB, MGO, HFP ####[facility] (DEFAULT)[address] [place] [address] ALT [Catalytic activity/Vol] 8 U/L Low 10-52 [facility] Comment on above: Performed By: #### C A, CHM7, IPB, MGO, HFP ####[facility] (DEFAULT)[address] [place] [address] AST [Catalytic activity/Vol] 21 U/L Normal 10-39 [facility] Comment on above: Performed By: #### C A, CHM7, IPB, MGO, HFP ####[facility] (DEFAULT)[address] [place] [address] Bilirubin [Mass/Vol] 1.9 mg/dL High <1.5 [facility] Comment on above: Performed By: #### C A, CHM7, IPB, MGO, HFP ####[facility] (DEFAULT)[address] [place] [address] Bilirubin.indirect [Mass/Vol] 0.4 mg/dL High <0.3 [facility] Comment on above: Performed By: #### C Tray, CHM7, IPB, MGO, HFP ####[facility] (DEFAULT)[address] [place] [address] Protein [Mass/Vol] 6.1 g/dL Low 6.4-8.3 [facility] Comment on above: Performed By: #### C A, CHM7, IPB, MGO, HFP ####[facility] (DEFAULT)[address] [place] [address] Albumin [Mass/Vol] 3.7 g/dL 3.5 - 5.0 g/dL [facility] ALP [Catalytic activity/Vol] 70 U/L 32 - 126 U/L [facility] ALT [Catalytic activity/Vol] 8 U/L Low 10 - 52 U/L [facility] AST [Catalytic activity/Vol] 21 U/L 10 - 39 U/L [facility] Bilirubin [Mass/Vol] 1.9 mg/dL High NINF - 1.5 mg/dL [facility] Bilirubin.direct [Mass/Vol] 0.4 mg/dL High NINF - 0.3 mg/dL [facility] Protein [Mass/Vol] 6.1 g/dL Low 6.4 - 8.3 g/dL [facility] MAGNESIUMon 01-16-2024 Magnesium [Mass/Vol] 1.7 mg/dL Normal 1.6-2.6 [facility] Comment on above: Performed By: #### C A, CHM7, IPB, MGO, HFP ####[facility] (DEFAULT)[address] [place] [address] Magnesium [Mass/Vol] 1.7 mg/dL 1.6 - 2 .6 mg/dL [facility] No Panel Informationon 01-16 Interpretation and review of laboratory results Abnormal [facility] Interpretation and review of laboratory results Normal [facility] PHOSPHATE, INORGANICon 01-16 Phosphorous 4.1 mg/dL Normal 2.2-4.6 [facility] Comment on above: Performed By: #### C Tray, CHM7, IPB, MGO, HFP ####[facility] (DEFAULT)[address] [facility] [place] [address] Phosphate [Mass/Vol] 4.1 mg/dL 2.2 - 4 .6 mg/dL [facility] PT,INR,PTTon 01-16-2024 aPTT Coag (Bld) [Time] 29.6 s Normal 24.0-34.3 [facility] Comment on above: Performed By: #### P TPTT, HSDDI ####[facility] (DEFAULT)[address] [place] [address] INR Coag (PPP) [Relative time] 1.2 {INR} High 0.9-1.1 [facility] Comment on above: Performed By: #### P TPTT, HSDDI ####[facility] (DEFAULT)[address] [place] [address] PT Coag (PPP) [Time] 14.9 s High 11.9-14.2 [facility] Comment on above: Performed By: #### P TPTT, HSDDI ####[facility] (DEFAULT)[address] [place] [address] aPTT Coag (PPP) [Time] 29.6 s [facility] INR Coag (Bld) [Relative time] 1.2 {INR} High 0.9 - 1.1 [facility] Interpretation and review of laboratory results Abnormal [facility] PT Coag (PPP) [Time] 14.9 s High [facility] TACROLIMUS LEVEL, TROUGH ([place] E DRUG LEVEL)Ordered By: Jimy Castillo on 01-16-2024 Interpretation and review of laboratory results Normal [facility] Tacrolimus (Bld) [Mass/Vol] 5.7 ng/mL Bone Marrow Transplant: 4.0-12.0, Therapeutic: 5.0-15.0 [facility] Method performed is a chemiluminescent microparticle immunoasssay on the [employer] Dyer i2000. The range is based on experience at [facility] and users should be aware that target concentrations vary widely depending on concomitant therapy, time post-transplant, and desired degree of immunosuppression. [facility] TACROLIMUS LEVEL, TROUGH ([place] E DRUG LEVEL)on 01-16-2024 Tacrolimus, Trough 5.7 ng/mL Normal Bone Susana ow Transplant: 4.0-12.0, Therapeutic: 5.0-15.0 [facility] Comment on above: Order Comment: Pleas e draw at specified interval PRIOR to dose. Do not hold dose to wait for level. Specimens batched twice per day, (M-F) and once per day weekendsMethod performed is a chemiluminescent microparticle immunoasssay on the [employer] Dyer i2000.The range is based on experience at [facility] and users should be aware that target concentrations vary widely depending on concomitant therapy, time post-transplant, and desired degree of immunosuppression. Performed By: #### T ACRO ####[facility] (DEFAULT)[address] [place] [address] US ABDOMEN LIVER DOPPLERon 0 01-16-2024 US ABDOMEN LIVER DOPPLER Normal [facility] US.doppler Abdominal vessels on 01-16-2024 IMPRESSION: 1. [...] pleural effusion. Trace right upper quadrant ascites. [facility] Radiology Study observation (narrative) [facility] US.doppler Ab[facility] vessels Ordered By: Iona Duran on 01-16-2024 [facility] Work Phone: XR CHEST PA AND LATERAL 2 EWSon 01-16-2024 XR CHEST PA AND LATERAL 2 VIEWS Normal [facility] [place] XR Chest PA and Lateralon IMPRESSION: Moderate [...] Normal IMPRESSION IMPRESSION: Moderate right pleural effusion. [facility] Radiology Study observation (narrative) [facility] XR Chest PA and LateralOrder ed By: Daisha Patterson on 01-16-2024 [facility] Work Phone: ALL CBC WITH AUTO DIFFon BASOPHILS ABSOLUTE AUTO 0.0 [facility] Basophils/100 WBC (Bld) 0.5 % 0.2 - 2.0 % [facility] Eosinophils/100 WBC (Bld) 2.8 % 0.9 - 7.0 % [facility] Erythrocyte distribution width (RBC) [Ratio] 13.8 % 11.0 - 15.0 % [facility] Hematocrit (Bld) [Volume fraction] 43.7 % 42.0 - 54.0 % [facility] Hemoglobin (Bld) [Mass/Vol] 14.0 g/dL 14.0 - 18.0 g/dL [facility] IMMATURE GRANULOCYTES ABS AUTO 0.01 [facility] Immature granulocytes/100 WBC (Bld) 0.3 % 0.0 - 0.5 % [facility] LYMPHOCYTES ABSOLUTE AUTO 1.5 [facility] Lymphocytes/100 WBC (Bld) 37.5 % 20.5 - 60.0 % [facility] MCH (RBC) [Entitic mass] 28.4 pg 25.9 - 34.0 pg [facility] MCHC (RBC) [Mass/Vol] 32.0 g/dL 29.9 - 35.2 g/dL [facility] MCV (RBC) [Entitic vol] 88.6 fL 80.0 - 94.0 fL [facility] MONOCYTES ABSOLUTE AUTO 0.5 [facility] Monocytes/100 WBC (Bld) 11.9 % 1.7 - 12.0 % [facility] NEUTROPHILS ABSOLUTE AUTO 1.9 [facility] Neutrophils/100 WBC (Bld) 47.0 % 43.0 - 75.0 % [facility] Platelet mean volume (Bld) [Entitic vol] 10.3 fL 9.5 - 13.5 fL [facility] TBH EO # 0.1 [facility] PLT 180 [facility] TB RBC 4.93 [facility] WBC 4.0 [facility] ALL CBC WITH AUTO DIFFon BASOPHILS ABSOLUTE AUTO 0.0 [facility] Basophils/100 WBC (Bld) 0.5 % 0.2 - 2.0 % [facility] Eosinophils/100 WBC (Bld) 2.6 % 0.9 - 7.0 % [facility] Erythrocyte distribution width (RBC) [Ratio] 13.5 % 11.0 - 15.0 % [facility] Hematocrit (Bld) [Volume fraction] 43.8 % 42.0 - 54.0 % [facility] Hemoglobin (Bld) [Mass/Vol] 14.0 g/dL 14.0 - 18.0 g/dL [facility] IMMATURE GRANULOCYTES ABS AUTO 0.00 [facility] Immature granulocytes/100 WBC (Bld) 0.0 % 0.0 - 0.5 % [facility] Interpretation and review of laboratory results Abnormal [facility] LYMPHOCYTES ABSOLUTE AUTO 1.8 [facility] Lymphocytes/100 WBC (Bld) 45.2 % 20.5 - 60.0 % [facility] MCH (RBC) [Entitic mass] 27.9 pg 25.9 - 34.0 pg [facility] MCHC (RBC) [Mass/Vol] 32.0 g/dL 29.9 - 35.2 g/dL [facility] MCV (RBC) [Entitic vol] 87.4 fL 80.0 - 94.0 fL [facility] MONOCYTES ABSOLUTE AUTO 0.4 [facility] Monocytes/100 WBC (Bld) 9.6 % 1.7 - 12.0 % [facility] NEUTROPHILS ABSOLUTE AUTO 1.6 [facility] Neutrophils/100 WBC (Bld) 42.1 % Low 43.0 - 75.0 % [facility] Platelet mean volume (Bld) [Entitic vol] 9.8 fL 9.5 - 13.5 fL [facility] EO # 0.1 [facility] PLT 180 [facility] RBC 5.01 [facility] WBC 3.9 Low [facility] CHEM 7 (LYTES,BUN,CREA,GLUC) on 09-11-2023 Anion gap [Moles/Vol] 13 mmol/L Normal 7-17 [facility] Comment on above: Performed By: #### TJ RAMÍREZ7 ####[facility] (DEFAULT)[address] [place] [address] Chloride [Moles/Vol] 111 mmol/L High 98-108 [facility] [place] Comment on above: Performed By: #### TJ RAMÍREZ7 ####[facility] (DEFAULT)[address] [facility] [place] [address] CO2 [Moles/Vol] 20 mmol/L Low 21-31 [facility] Comment on above: Performed By: #### TJ RAMÍREZ7 ####[facility] (DEFAULT)[address] [facility] [place] [address] Creatinine [Mass/Vol] 1.13 mg/dL Normal 0.70-1.30 [facility] [place] Comment on above: Performed By: #### TJ RAMÍREZ7 ####[facility] (DEFAULT)[address] [facility] [place] [address] GFR/1.73 sq M.predicted among non-blacks MDRD (S/P/Bld) [Vol rate/Area] 78 mL/min/{1.73_m2} Normal >=60 [facility] Comment on above: Result Comment: Repo rted eGFR is based on the CKD-EPI 2020 equation using creatinine, age, and sex. Performed By: #### NATHANIEL RAMÍREZ ####[facility] (DEFAULT)[address] [facility] [place] [address] Glucose [Mass/Vol] 109 mg/dL High 70-99 [facility] Comment on above: Performed By: #### TJ RAMÍREZ7 ####[facility] (DEFAULT)[address] [facility] [place] [address] Osmolality [Osmolality] 295 mosm/kg Normal 278-305 [facility] [place] Comment on above: Performed By: #### TJ RAMÍREZ7 ####[facility] (DEFAULT)[address] [place] [address] Potassium [Moles/Vol] 4.3 mmol/L Normal 3.5-5.0 [facility] [place] Comment on above: Performed By: #### Rod BLOOM CHM7 ####[facility] (DEFAULT)[address] [place] [address] Sodium [Moles/Vol] 140 mmol/L Normal 135-145 [facility] Comment on above: Performed By: #### Rod BLOOM CHM7 ####[facility] (DEFAULT)[address] [place] [address] Urea nitrogen [Mass/Vol] 16 mg/dL Normal 7-25 [facility] [place] Comment on above: Performed By: #### Rod BLOOM CHM7 ####[facility] (DEFAULT)[address] [facility] [place] [address] Urea nitrogen/Creatinine [Mass ratio] 14 mg/mg Normal [facility] [place] Comment on above: Performed By: #### Rod BLOOM CHM7 ####[facility] (DEFAULT)[address] [place] [address] Anion gap [Moles/Vol] 13 mmol/L 7 - 17 mmol/L [facility] Chloride [Moles/Vol] 111 mmol/L High 98 - 10 8 mmol/L [facility] CO2 [Moles/Vol] 20 mmol/L Low 21 - 31 mmol/L [facility] Creatinine [Mass/Vol] 1.13 mg/dL 0.70 - 1.30 mg/dL [facility] eGFR, CKD-EPI, Male 78 - PINF [facility] Glucose [Mass/Vol] 109 mg/dL High 70 - 99 mg/dL [facility] Interpretation and review of laboratory results Abnormal [facility] Osmolality Calc [Osmolality] 295 [facility] Potassium [Moles/Vol] 4.3 mmol/L 3.5 - 5.0 mmol/L [facility] Sodium [Moles/Vol] 140 mmol/L 135 - 145 mmol/L [facility] Urea nitrogen [Mass/Vol] 16 mg/dL 7 - 25 mg/dL [facility] Urea nitrogen/Creatinine [Mass ratio] 14 mg/mg [facility] GLUCOSE POCon 09-11-2023 Glucose [Mass/Vol] 108 mg/dL High 70 - 99 mg/dL [facility] Interpretation and review of laboratory results Abnormal [facility] POC Sample Type CAPBL [facility] Legionella sp identified Org specific cx Nom (Unsp spec)on 09-11-2023 Bacteria identified Cx Nom (Unsp spec) NO GROWTH DAY 7 OF 7 [facility] MAGNESIUMon 09-11-2023 Magnesium [Mass/Vol] 1.6 mg/dL Normal 1.6-2.6 [facility] [place] Comment on above: Performed By: #### M [facility] ####[facility] (DEFAULT)[address] [place] [address] Interpretation and review of laboratory results Normal [facility] Magnesium [Mass/Vol] 1.6 mg/dL 1.6 - 2 .6 mg/dL [facility] No Panel Informationon 09-11 [facility] TACROLIMUS LEVEL, TROUGH ([place] DRUG LEVEL)on 09-11-2023 Interpretation and review of laboratory results Normal [facility] Tacrolimus (Bld) [Mass/Vol] 11.5 ng/mL [facility] Tacrolimus, Trough 11.5 ng/mL Normal Bone Susana ow Transplant: 4.0-12.0, Therapeutic: 5.0-15.0 [facility] Comment on above: Order Comment: Pleas e draw at specified interval PRIOR to dose. Do not hold dose to wait for level. Specimens batched twice per day, (M-F) and once per day weekendsMethod performed is a chemiluminescent microparticle immunoasssay on the [employer] Dyer i2000.The range is based on experience at [facility] and users should be aware that target concentrations vary widely depending on concomitant therapy, time post-transplant, and desired degree of immunosuppression. Performed By: #### T ACRO ####[facility] (DEFAULT)[address] [place] [address] CBC,PLATELETSon 09-10-2023 Hematocrit (Bld) [Volume fraction] 40.0 % Normal 39.6-48.8 [facility] [place] Comment on above: Performed By: #### H EMOGC ####[facility] (DEFAULT)[address] [facility] [place] [address] Hemoglobin (Bld) [Mass/Vol] 12.7 g/dL Low 13.4-16.8 [facility] [place] Comment on above: Performed By: #### H EMOGC ####[facility] (DEFAULT)[address] [facility] [place] [address] MCV (RBC) [Entitic vol] 86.0 fL Normal 79.0-94.5 [facility] [place] Comment on above: Performed By: #### H EMOGC ####[facility] (DEFAULT)[address] [facility] [place] [address] Mean Cell Hgb 27.3 pg Normal 26.1-33.3 [facility] [place] Comment on above: Performed By: #### H EMOGC ####[facility] (DEFAULT)[address] [facility] [place] [address] Mean Cell Hgb Conc 31.8 g/dL Low 31.9-36.5 [facility] Comment on above: Performed By: #### H EMOGC ####[facility] (DEFAULT)[address] [place] [address] Platelet mean volume (Bld) [Entitic vol] 9.5 fL Normal 8.7-12.3 [facility] [place] Comment on above: Performed By: #### H EMOGC ####[facility] (DEFAULT)[address] [facility] [place] [address] Platelets (Bld) [#/Vol] 225 10*3/uL Normal 146-337 [facility] [place] Comment on above: Performed By: #### H EMO ####[facility] (DEFAULT)[address] [facility] [place] [address] RBC (Bld) [#/Vol] 4.65 10*6/uL Normal 4.38-5.83 [facility] [place] Comment on above: Performed By: #### H EMO ####[facility] (DEFAULT)[address] [place] [address] RBC Distribution 13.9 % Normal 10.9-14.3 [facility] Comment on above: Performed By: #### H EMO ####[facility] (DEFAULT)[address] [place] [address] WBC (Bld) [#/Vol] 6.52 10*3/uL Normal 3.73-10.10 [facility] [place] Comment on above: Performed By: #### H [facility] ####[facility] (DEFAULT)[address] [place] [address] Erythrocyte distribution width (RBC) [Ratio] 13.9 % 10.9 - 14.3 % [facility] Hematocrit (Bld) [Volume fraction] 40.0 % 39.6 - 48.8 % [facility] Hemoglobin (Bld) [Mass/Vol] 12.7 g/dL Low 13.4 - 16.8 g/dL [facility] Interpretation and review of laboratory results Abnormal [facility] MCH (RBC) [Entitic mass] 27.3 pg 26.1 - 33.3 pg [facility] MCHC (RBC) [Mass/Vol] 31.8 g/dL Low 31.9 - 36.5 g/dL [facility] MCV (RBC) [Entitic vol] 86.0 fL 79.0 - 94.5 fL [facility] Platelet mean volume (Bld) [Entitic vol] 9.5 fL 8.7 - 12.3 fL [facility] Platelets (Bld) [#/Vol] 225 10*3/uL 146 - 337 K/uL [facility] RBC (Bld) [#/Vol] 4.65 10*6/uL [facility] WBC (Bld) [#/Vol] 6.52 10*3/uL 3.73 - 10. 10 K/uL [facility] CHEM 7 (LYTES,BUN,CREA,GLUC) on 09-10-2023 Anion gap [Moles/Vol] 13 mmol/L Normal 7-17 [facility] [place] Comment on above: Performed By: #### NATHANIEL RAMÍREZ, HFP ####[facility] (DEFAULT)[address] [place] [address] Chloride [Moles/Vol] 111 mmol/L High 98-108 [facility] [place] Comment on above: Performed By: #### NATHANIEL RAMÍREZ, HFP ####[facility] (DEFAULT)[address] [place] [address] CO2 [Moles/Vol] 20 mmol/L Low 21-31 [facility] Comment on above: Performed By: #### TJ RAMÍREZ7, HFP ####[facility] (DEFAULT)[address] [place] [address] Creatinine [Mass/Vol] 1.27 mg/dL Normal 0.70-1.30 [facility] [place] Comment on above: Performed By: #### TJ RAMÍREZ7, HFP ####[facility] (DEFAULT)[address] [place] [address] GFR/1.73 sq M.predicted among non-blacks MDRD (S/P/Bld) [Vol rate/Area] 68 mL/min/{1.73_m2} Normal >=60 [facility] [place] Comment on above: Result Comment: Repo rted eGFR is based on the CKD-EPI 2020 equation using creatinine, age, and sex. Performed By: #### NATHANIEL RAMÍREZ, HFP ####[facility] (DEFAULT)[address] [place] [address] Glucose [Mass/Vol] 100 mg/dL High 70-99 [facility] Comment on above: Performed By: #### NATHANIEL RAMÍREZ, HFP ####[facility] (DEFAULT)[address] [place] [address] Osmolality [Osmolality] 293 mosm/kg Normal 278-305 [facility] [place] Comment on above: Performed By: #### NATHANIEL RAMÍREZ, HFP ####[facility] (DEFAULT)[address] [place] [address] Potassium [Moles/Vol] 4.4 mmol/L Normal 3.5-5.0 [facility] [place] Comment on above: Performed By: #### NATHANIEL RAMÍREZ, HFP ####[facility] (DEFAULT)[address] [place] [address] Sodium [Moles/Vol] 140 mmol/L Normal 135-145 [facility] Comment on above: Performed By: #### NATHANIEL RAMÍREZ, HFP ####[facility] (DEFAULT)[address] [place] [address] Urea nitrogen [Mass/Vol] 12 mg/dL Normal 7-25 [facility] [place] Comment on above: Performed By: #### NATHANIEL RAMÍREZ, HFP ####[facility] (DEFAULT)[address] [place] [address] Urea nitrogen/Creatinine [Mass ratio] 9 mg/mg Normal [facility] [place] Comment on above: Performed By: #### NATHANIEL RAMÍREZ, HFP ####[facility] (DEFAULT)[address] [place] [address] Anion gap [Moles/Vol] 13 mmol/L 7 - 17 mmol/L [facility] Chloride [Moles/Vol] 111 mmol/L High 98 - 10 8 mmol/L [facility] CO2 [Moles/Vol] 20 mmol/L Low 21 - 31 mmol/L [facility] Creatinine [Mass/Vol] 1.27 mg/dL 0.70 - 1.30 mg/dL [facility] eGFR, CKD-EPI, Male 69 - PINF [facility] Glucose [Mass/Vol] 100 mg/dL High 70 - 99 mg/dL [facility] Osmolality Calc [Osmolality] 293 [facility] Potassium [Moles/Vol] 4.4 mmol/L 3.5 - 5.0 mmol/L [facility] Sodium [Moles/Vol] 140 mmol/L 135 - 145 mmol/L [facility] Urea nitrogen [Mass/Vol] 12 mg/dL 7 - 25 mg/dL [facility] Urea nitrogen/Creatinine [Mass ratio] 9 mg/mg [facility] HEPATIC FUNCTION PANELon Albumin [Mass/Vol] 3.3 g/dL Low 3.5-5.0 [facility] Comment on above: Performed By: #### NATHANIEL RAMÍREZ, HFP ####[facility] (DEFAULT)[address] [place] [address] ALP [Catalytic activity/Vol] 143 U/L High 32-126 [facility] Comment on above: Performed By: #### NATHANIEL RAMÍREZ, HFP ####[facility] (DEFAULT)[address] [place] [address] ALT [Catalytic activity/Vol] 28 U/L Normal 10-52 [facility] Comment on above: Performed By: #### NATHANIEL RAMÍREZ, HFP ####[facility] (DEFAULT)[address] [place] [address] AST [Catalytic activity/Vol] 29 U/L Normal 10-39 [facility] [place] Comment on above: Performed By: #### NATHANIEL RAMÍREZ, HFP ####[facility] (DEFAULT)[address] [place] [address] Bilirubin [Mass/Vol] 0.9 mg/dL Normal <1.5 [facility] [place] Comment on above: Performed By: #### M NATHANIEL BLOOM, HFP ####[facility] (DEFAULT)[address] [place] [address] Bilirubin.indirect [Mass/Vol] 0.2 mg/dL Normal <0.3 [facility] [place] Comment on above: Performed By: #### M NATHANIEL BLOOM, HFP ####[facility] (DEFAULT)[address] [place] [address] Protein [Mass/Vol] 6.8 g/dL Normal 6.4-8.3 [facility] Comment on above: Performed By: #### NATHANIEL RAMÍREZ, HFP ####[facility] (DEFAULT)[address] [place] [address] Albumin [Mass/Vol] 3.3 g/dL Low 3.5 - 5.0 g/dL [facility] ALP [Catalytic activity/Vol] 143 U/L High 32 - 126 U/L [facility] ALT [Catalytic activity/Vol] 28 U/L 10 - 52 U/L [facility] AST [Catalytic activity/Vol] 29 U/L 10 - 39 U/L [facility] Bilirubin [Mass/Vol] 0.9 mg/dL NINF - 1.5 mg/dL [facility] Bilirubin.direct [Mass/Vol] 0.2 mg/dL NINF - 0.3 mg/dL [facility] Protein [Mass/Vol] 6.8 g/dL 6.4 - 8.3 g/dL [facility] MAGNESIUMon 09-10-2023 Magnesium [Mass/Vol] 1.9 mg/dL Normal 1.6-2.6 [facility] Comment on above: Performed By: #### M NATHANIEL BLOOM, HFP ####[facility] (DEFAULT)[address] [place] [address] Interpretation and review of laboratory results Normal [facility] Magnesium [Mass/Vol] 1.9 mg/dL 1.6 - 2 .6 mg/dL [facility] No Panel Informationon 09-10 Interpretation and review of laboratory results Abnormal [facility] TACROLIMUS LEVEL, TROUGH ([place] E DRUG LEVEL)Ordered By: Jimy Castillo on 09-10-2023 Interpretation and review of laboratory results Normal [facility] Tacrolimus (Bld) [Mass/Vol] 11.8 ng/mL [facility] TACROLIMUS LEVEL, TROUGH ([place] E DRUG LEVEL)on 09-10-2023 Tacrolimus, Trough 11.8 ng/mL Normal Bone Susana ow Transplant: 4.0-12.0, Therapeutic: 5.0-15.0 [facility] Comment on above: Order Comment: Pleas e draw at specified interval PRIOR to dose. Do not hold dose to wait for level. Specimens batched twice per day, (M-F) and once per day weekendsMethod performed is a chemiluminescent microparticle immunoasssay on the [employer] Dyer i2000.The range is based on experience at [facility] and users should be aware that target concentrations vary widely depending on concomitant therapy, time post-transplant, and desired degree of immunosuppression. Performed By: #### T ACRO ####[facility] (DEFAULT)[address] [place] [address] CHEM 7 (LYTES,BUN,CREA,GLUC) on 09-09-2023 Anion gap [Moles/Vol] 14 mmol/L Normal 7-17 [facility] Comment on above: Performed By: #### M JO ANN BLOOM CHM7 ####[facility] (DEFAULT)[address] [place] [address] Chloride [Moles/Vol] 113 mmol/L High 98-108 [facility] Comment on above: Performed By: #### M JO ANN BLOOM CHM7 ####[facility] (DEFAULT)[address] [facility] [place] [address] CO2 [Moles/Vol] 18 mmol/L Low 21-31 [facility] Comment on above: Performed By: #### JO ANN RAMÍREZ CHM7 ####[facility] (DEFAULT)[address] [place] [address] Creatinine [Mass/Vol] 1.03 mg/dL Normal 0.70-1.30 [facility] [place] Comment on above: Performed By: #### JO ANN RAMÍREZ CHM7 ####[facility] (DEFAULT)[address] [facility] [place] [address] GFR/1.73 sq M.predicted among non-blacks MDRD (S/P/Bld) [Vol rate/Area] 87 mL/min/{1.73_m2} Normal >=60 [facility] Comment on above: Result Comment: Repo rted eGFR is based on the CKD-EPI 2020 equation using creatinine, age, and sex. Performed By: #### JO ANN RAMÍREZ CHM7 ####[facility] (DEFAULT)[address] [facility] [place] [address] Glucose [Mass/Vol] 106 mg/dL High 70-99 [facility] Comment on above: Performed By: #### JO ANN RAMÍREZ CHM7 ####[facility] (DEFAULT)[address] [facility] [place] [address] Osmolality [Osmolality] 294 mosm/kg Normal 278-305 [facility] [place] Comment on above: Performed By: #### JO ANN RAMÍREZ CHM7 ####[facility] (DEFAULT)[address] [facility] [place] [address] Potassium [Moles/Vol] 4.0 mmol/L Normal 3.5-5.0 [facility] Comment on above: Performed By: #### JO ANN RAMÍREZ, CHM7 ####[facility] (DEFAULT)[address] [facility] [place] [address] Sodium [Moles/Vol] 141 mmol/L Normal 135-145 [facility] Comment on above: Performed By: #### M JO ANN BLOOM CHM7 ####[facility] (DEFAULT)[address] [place] [address] Urea nitrogen [Mass/Vol] 10 mg/dL Normal 7-25 [facility] Comment on above: Performed By: #### JO ANN RAMÍREZ CHM7 ####[facility] (DEFAULT)[address] [place] [address] Urea nitrogen/Creatinine [Mass ratio] 10 mg/mg Normal [facility] Comment on above: Performed By: #### JO ANN RAMÍREZ CHM7 ####[facility] (DEFAULT)[address] [place] [address] Anion gap [Moles/Vol] 14 mmol/L 7 - 17 mmol/L [facility] Chloride [Moles/Vol] 113 mmol/L High 98 - 10 8 mmol/L [facility] CO2 [Moles/Vol] 18 mmol/L Low 21 - 31 mmol/L [facility] Creatinine [Mass/Vol] 1.03 mg/dL 0.70 - 1.30 mg/dL [facility] eGFR, CKD-EPI, Male 87 - PINF [facility] Glucose [Mass/Vol] 106 mg/dL High 70 - 99 mg/dL [facility] Interpretation and review of laboratory results Abnormal [facility] Osmolality Calc [Osmolality] 294 [facility] Potassium [Moles/Vol] 4.0 mmol/L 3.5 - 5.0 mmol/L [facility] Sodium [Moles/Vol] 141 mmol/L 135 - 145 mmol/L [facility] Urea nitrogen [Mass/Vol] 10 mg/dL 7 - 25 mg/dL [facility] Urea nitrogen/Creatinine [Mass ratio] 10 mg/mg [facility] MAGNESIUMon 09-09-2023 Magnesium [Mass/Vol] 1.6 mg/dL Normal 1.6-2.6 [facility] Comment on above: Performed By: #### M JO ANN BLOOM CHM7 ####[facility] (DEFAULT)[address] [place] [address] Magnesium [Mass/Vol] 1.6 mg/dL 1.6 - 2 .6 mg/dL [facility] No Panel Informationon 09-09 Interpretation and review of laboratory results Normal [facility] PHOSPHATE, INORGANICon 09-09 Phosphorous 3.8 mg/dL Normal 2.2-4.6 [facility] Comment on above: Performed By: #### M JO ANN BLOOM CHM7 ####[facility] (DEFAULT)[address] [place] [address] Phosphate [Mass/Vol] 3.8 mg/dL 2.2 - 4 .6 mg/dL [facility] TACROLIMUS LEVEL, TROUGH ([place] E DRUG LEVEL)on 09-09-2023 Interpretation and review of laboratory results Normal [facility] Tacrolimus (Bld) [Mass/Vol] 9.2 ng/mL [facility] Tacrolimus, Trough 9.2 ng/mL Normal Bone Susana ow Transplant: 4.0-12.0, Therapeutic: 5.0-15.0 [facility] [place] Comment on above: Order Comment: Pleas e draw at specified interval PRIOR to dose. Do not hold dose to wait for level. Specimens batched twice per day, (M-F) and once per day weekendsMethod performed is a chemiluminescent microparticle immunoasssay on the [employer] Dyer i2000.The range is based on experience at [facility] and users should be aware that target concentrations vary widely depending on concomitant therapy, time post-transplant, and desired degree of immunosuppression. Performed By: #### T ACRO ####[facility] (DEFAULT)[address] [facility] [place] [address] CBC,PLATELETSon 09-08-2023 Hematocrit (Bld) [Volume fraction] 36.1 % Low 39.6-48.8 [facility] [place] Comment on above: Performed By: #### H EMOGC ####[facility] (DEFAULT)[address] [facility] [place] [address] Hemoglobin (Bld) [Mass/Vol] 11.6 g/dL Low 13.4-16.8 [facility] [place] Comment on above: Performed By: #### H EMOGC ####[facility] (DEFAULT)[address] [facility] [place] [address] MCV (RBC) [Entitic vol] 85.1 fL Normal 79.0-94.5 [facility] [place] Comment on above: Performed By: #### H EMOGC ####[facility] (DEFAULT)[address] [facility] [place] [address] Mean Cell Hgb 27.4 pg Normal 26.1-33.3 [facility] [place] Comment on above: Performed By: #### H EMOGC ####[facility] (DEFAULT)[address] [facility] [place] [address] Mean Cell Hgb Conc 32.1 g/dL Normal 31.9-36.5 [facility] Comment on above: Performed By: #### H EMOGC ####[facility] (DEFAULT)[address] [place] [address] Platelet mean volume (Bld) [Entitic vol] 9.5 fL Normal 8.7-12.3 [facility] [place] Comment on above: Performed By: #### H EMOGC ####[facility] (DEFAULT)[address] [facility] [place] [address] Platelets (Bld) [#/Vol] 182 10*3/uL Normal 146-337 [facility] [place] Comment on above: Performed By: #### H EMOGC ####[facility] (DEFAULT)[address] [place] [address] RBC (Bld) [#/Vol] 4.24 10*6/uL Low 4.38-5.83 [facility] [place] Comment on above: Performed By: #### [facility] ####[facility] (DEFAULT)[address] [place] [address] RBC Distribution 13.6 % Normal 10.9-14.3 [facility] Comment on above: Performed By: #### [facility] ####[facility] (DEFAULT)[address] [place] [address] WBC (Bld) [#/Vol] 4.59 10*3/uL Normal 3.73-10.10 [facility] [place] Comment on above: Performed By: #### [facility] ####[facility] (DEFAULT)[address] [place] [address] Erythrocyte distribution width (RBC) [Ratio] 13.6 % 10.9 - 14.3 % [facility] Hematocrit (Bld) [Volume fraction] 36.1 % Low 39.6 - 48.8 % [facility] Hemoglobin (Bld) [Mass/Vol] 11.6 g/dL Low 13.4 - 16.8 g/dL [facility] Interpretation and review of laboratory results Abnormal [facility] MCH (RBC) [Entitic mass] 27.4 pg 26.1 - 33.3 pg [facility] MCHC (RBC) [Mass/Vol] 32.1 g/dL 31.9 - 36.5 g/dL [facility] MCV (RBC) [Entitic vol] 85.1 fL 79.0 - 94.5 fL [facility] Platelet mean volume (Bld) [Entitic vol] 9.5 fL 8.7 - 12.3 fL [facility] Platelets (Bld) [#/Vol] 182 10*3/uL 146 - 337 K/uL [facility] RBC (Bld) [#/Vol] 4.24 10*6/uL Low [facility] WBC (Bld) [#/Vol] 4.59 10*3/uL 3.73 - 10. 10 K/uL [facility] CHEM 7 (LYTES,BUN,CREA,GLUC) on 09-08-2023 Anion gap [Moles/Vol] 12 mmol/L Normal 7-17 [facility] [place] Comment on above: Performed By: #### M GO, IPB, HFP, CHM7 ####[facility] (DEFAULT)[address] [place] [address] Chloride [Moles/Vol] 113 mmol/L High 98-108 [facility] [place] Comment on above: Performed By: #### M GO, IPB, HFP, CHM7 ####[facility] (DEFAULT)[address] [place] [address] CO2 [Moles/Vol] 21 mmol/L Normal 21-31 [facility] Comment on above: Performed By: #### M GO, IPB, HFP, CHM7 ####[facility] (DEFAULT)[address] [place] [address] Creatinine [Mass/Vol] 1.14 mg/dL Normal 0.70-1.30 [facility] [place] Comment on above: Performed By: #### M GO, IPB, HFP, CHM7 ####[facility] (DEFAULT)[address] [place] [address] GFR/1.73 sq M.predicted among non-blacks MDRD (S/P/Bld) [Vol rate/Area] 77 mL/min/{1.73_m2} Normal >=60 [facility] [place] Comment on above: Result Comment: Repo rted eGFR is based on the CKD-EPI 2020 equation using creatinine, age, and sex. Performed By: #### M GO, IPB, HFP, CHM7 ####[facility] (DEFAULT)[address] [place] [address] Glucose [Mass/Vol] 107 mg/dL High 70-99 [facility] Comment on above: Performed By: #### M GO, IPB, HFP, CHM7 ####[facility] (DEFAULT)[address] [place] [address] Osmolality [Osmolality] 296 mosm/kg Normal 278-305 [facility] [place] Comment on above: Performed By: #### M MERLE, IPB, HFP, CHM7 ####[facility] (DEFAULT)[address] [place] [address] Potassium [Moles/Vol] 3.9 mmol/L Normal 3.5-5.0 [facility] [place] Comment on above: Performed By: #### M MERLE, IPB, HFP, CHM7 ####[facility] (DEFAULT)[address] [place] [address] Sodium [Moles/Vol] 142 mmol/L Normal 135-145 [facility] Comment on above: Performed By: #### Rod BLOOM IPB, HFP, CHM7 ####[facility] (DEFAULT)[address] [place] [address] Urea nitrogen [Mass/Vol] 11 mg/dL Normal 7-25 [facility] [place] Comment on above: Performed By: #### Rod BLOOM IPB, HFP, CHM7 ####[facility] (DEFAULT)[address] [place] [address] Urea nitrogen/Creatinine [Mass ratio] 10 mg/mg Normal [facility] [place] Comment on above: Performed By: #### M MERLE IPB, HFP, CHM7 ####[facility] (DEFAULT)[address] [place] [address] Anion gap [Moles/Vol] 12 mmol/L 7 - 17 mmol/L [facility] Chloride [Moles/Vol] 113 mmol/L High 98 - 10 8 mmol/L [facility] CO2 [Moles/Vol] 21 mmol/L 21 - 31 mmol/L [facility] Creatinine [Mass/Vol] 1.14 mg/dL 0.70 - 1.30 mg/dL [facility] eGFR, CKD-EPI, Male 77 - PINF [facility] Glucose [Mass/Vol] 107 mg/dL High 70 - 99 mg/dL [facility] Osmolality Calc [Osmolality] 296 [facility] Potassium [Moles/Vol] 3.9 mmol/L 3.5 - 5.0 mmol/L [facility] Sodium [Moles/Vol] 142 mmol/L 135 - 145 mmol/L [facility] Urea nitrogen [Mass/Vol] 11 mg/dL 7 - 25 mg/dL [facility] Urea nitrogen/Creatinine [Mass ratio] 10 mg/mg [facility] HEPATIC FUNCTION PANELon Albumin [Mass/Vol] 2.9 g/dL Low 3.5-5.0 [facility] Comment on above: Performed By: #### M MERLE, IPB, HFP, CHM7 ####[facility] (DEFAULT)[address] [place] [address] ALP [Catalytic activity/Vol] 133 U/L High 32-126 [facility] [place] Comment on above: Performed By: #### M GO, IPB, HFP, CHM7 ####[facility] (DEFAULT)[address] [place] [address] ALT [Catalytic activity/Vol] 23 U/L Normal 10-52 [facility] [place] Comment on above: Performed By: #### M GO, IPB, HFP, CHM7 ####[facility] (DEFAULT)[address] [place] [address] AST [Catalytic activity/Vol] 23 U/L Normal 10-39 [facility] [place] Comment on above: Performed By: #### M GO, IPB, HFP, CHM7 ####[facility] (DEFAULT)[address] [place] [address] Bilirubin [Mass/Vol] 0.8 mg/dL Normal <1.5 [facility] [place] Comment on above: Performed By: #### M GO, IPB, HFP, CHM7 ####[facility] (DEFAULT)[address] [place] [address] Bilirubin.indirect [Mass/Vol] 0.2 mg/dL Normal <0.3 [facility] [place] Comment on above: Performed By: #### M JO ANN BLOOM, HFP, CHM7 ####[facility] (DEFAULT)[address] [place] [address] Protein [Mass/Vol] 5.9 g/dL Low 6.4-8.3 [facility] Comment on above: Performed By: #### M JO ANN BLOOM, HFP, CHM7 ####[facility] (DEFAULT)[address] [place] [address] Albumin [Mass/Vol] 2.9 g/dL Low 3.5 - 5.0 g/dL [facility] ALP [Catalytic activity/Vol] 133 U/L High 32 - 126 U/L [facility] ALT [Catalytic activity/Vol] 23 U/L 10 - 52 U/L [facility] AST [Catalytic activity/Vol] 23 U/L 10 - 39 U/L [facility] Bilirubin [Mass/Vol] 0.8 mg/dL NINF - 1.5 mg/dL [facility] Bilirubin.direct [Mass/Vol] 0.2 mg/dL NINF - 0.3 mg/dL [facility] Protein [Mass/Vol] 5.9 g/dL Low 6.4 - 8.3 g/dL [facility] MAGNESIUMon 09-08-2023 Magnesium [Mass/Vol] 1.8 mg/dL Normal 1.6-2.6 [facility] [place] Comment on above: Performed By: #### M JO ANN BLOOM, HFP, CHM7 ####[facility] (DEFAULT)[address] [place] [address] Interpretation and review of laboratory results Normal [facility] Magnesium [Mass/Vol] 1.8 mg/dL 1.6 - 2 .6 mg/dL [facility] No Panel Informationon 09-08 Interpretation and review of laboratory results Abnormal [facility] PHOSPHATE, INORGANICon 09-08 Interpretation and review of laboratory results Normal [facility] Phosphate [Mass/Vol] 4.1 mg/dL 2.2 - 4 .6 mg/dL [facility] Phosphorous 4.1 mg/dL Normal 2.2-4.6 [facility] [place] Comment on above: Performed By: #### M GO, IPB, HFP, CHM7 ####[facility] (DEFAULT)[address] [place] [address] TACROLIMUS LEVEL, TROUGH ([place] E DRUG LEVEL)on 09-08-2023 Interpretation and review of laboratory results Normal [facility] Tacrolimus (Bld) [Mass/Vol] 8.5 ng/mL [facility] Tacrolimus, Trough 8.5 ng/mL Normal Bone Susana ow Transplant: 4.0-12.0, Therapeutic: 5.0-15.0 [facility] [place] Comment on above: Order Comment: Pleas e draw at specified interval PRIOR to dose. Do not hold dose to wait for level. Specimens batched twice per day, (M-F) and once per day weekendsMethod performed is a chemiluminescent microparticle immunoasssay on the [employer] Dyer i2000.The range is based on experience at [facility] and users should be aware that target concentrations vary widely depending on concomitant therapy, time post-transplant, and desired degree of immunosuppression. Performed By: #### T ACRO ####[facility] (DEFAULT)[address] [place] [address] CBC,PLATELETSon 09-07-2023 Hematocrit (Bld) [Volume fraction] 37.1 % Low 39.6-48.8 [facility] [place] Comment on above: Performed By: #### H EMOGC ####[facility] (DEFAULT)[address] [place] [address] Hemoglobin (Bld) [Mass/Vol] 11.9 g/dL Low 13.4-16.8 [facility] [place] Comment on above: Performed By: #### H EMOGC ####[facility] (DEFAULT)[address] [place] [address] MCV (RBC) [Entitic vol] 86.5 fL Normal 79.0-94.5 [facility] [place] Comment on above: Performed By: #### H EMOGC ####[facility] (DEFAULT)[address] [place] [address] Mean Cell Hgb 27.7 pg Normal 26.1-33.3 [facility] [place] Comment on above: Performed By: #### H EMOGC ####[facility] (DEFAULT)[address] [place] [address] Mean Cell Hgb Conc 32.1 g/dL Normal 31.9-36.5 [facility] Comment on above: Performed By: #### H EMOGC ####[facility] (DEFAULT)[address] [place] [address] Platelet mean volume (Bld) [Entitic vol] 9.6 fL Normal 8.7-12.3 [facility] [place] Comment on above: Performed By: #### H EMOGC ####[facility] (DEFAULT)[address] [place] [address] Platelets (Bld) [#/Vol] 176 10*3/uL Normal 146-337 [facility] [place] Comment on above: Performed By: #### H EMOGC ####[facility] (DEFAULT)[address] [place] [address] RBC (Bld) [#/Vol] 4.29 10*6/uL Low 4.38-5.83 [facility] [place] Comment on above: Performed By: #### H EMOGC ####[facility] (DEFAULT)[address] [place] [address] RBC Distribution 13.5 % Normal 10.9-14.3 [facility] Comment on above: Performed By: #### [facility] ####[facility] (DEFAULT)[address] [place] [address] WBC (Bld) [#/Vol] 4.10 10*3/uL Normal 3.73-10.10 [facility] [place] Comment on above: Performed By: #### [facility] ####[facility] (DEFAULT)[address] [place] [address] Erythrocyte distribution width (RBC) [Ratio] 13.5 % 10.9 - 14.3 % [facility] Hematocrit (Bld) [Volume fraction] 37.1 % Low 39.6 - 48.8 % [facility] Hemoglobin (Bld) [Mass/Vol] 11.9 g/dL Low 13.4 - 16.8 g/dL [facility] Interpretation and review of laboratory results Abnormal [facility] MCH (RBC) [Entitic mass] 27.7 pg 26.1 - 33.3 pg [facility] MCHC (RBC) [Mass/Vol] 32.1 g/dL 31.9 - 36.5 g/dL [facility] MCV (RBC) [Entitic vol] 86.5 fL 79.0 - 94.5 fL [facility] Platelet mean volume (Bld) [Entitic vol] 9.6 fL 8.7 - 12.3 fL [facility] Platelets (Bld) [#/Vol] 176 10*3/uL 146 - 337 K/uL [facility] RBC (Bld) [#/Vol] 4.29 10*6/uL Low [facility] WBC (Bld) [#/Vol] 4.10 10*3/uL 3.73 - 10. 10 K/uL [facility] CHEM 7 (LYTES,BUN,CREA,GLUC) on 09-07-2023 Anion gap [Moles/Vol] 13 mmol/L Normal 7-17 [facility] [place] Comment on above: Performed By: #### C HM7, IPB, MGO, HFP ####[facility] (DEFAULT)[address] [place] [address] Chloride [Moles/Vol] 113 mmol/L High 98-108 [facility] [place] Comment on above: Performed By: #### C HM7, IPB, MGO, HFP ####[facility] (DEFAULT)[address] [place] [address] CO2 [Moles/Vol] 19 mmol/L Low 21-31 [facility] Comment on above: Performed By: #### C HM7, IPB, MGO, HFP ####[facility] (DEFAULT)[address] [facility] [place] [address] Creatinine [Mass/Vol] 1.22 mg/dL Normal 0.70-1.30 [facility] [place] Comment on above: Performed By: #### C HM7, IPB, MGO, HFP ####[facility] (DEFAULT)[address] [place] [address] GFR/1.73 sq M.predicted among non-blacks MDRD (S/P/Bld) [Vol rate/Area] 71 mL/min/{1.73_m2} Normal >=60 [facility] [place] Comment on above: Result Comment: Repo rted eGFR is based on the CKD-EPI 2020 equation using creatinine, age, and sex. Performed By: #### C HM7, IPB, MGO, HFP ####[facility] (DEFAULT)[address] [facility] [place] [address] Glucose [Mass/Vol] 107 mg/dL High 70-99 [facility] Comment on above: Performed By: #### C HM7, IPB, MGO, HFP ####[facility] (DEFAULT)[address] [facility] [place] [address] Osmolality [Osmolality] 295 mosm/kg Normal 278-305 [facility] [place] Comment on above: Performed By: #### C HM7, IPB, MGO, HFP ####[facility] (DEFAULT)[address] [place] [address] Potassium [Moles/Vol] 3.9 mmol/L Normal 3.5-5.0 [facility] [place] Comment on above: Performed By: #### C HM7, IPB, MGO, HFP ####[facility] (DEFAULT)[address] [place] [address] Sodium [Moles/Vol] 141 mmol/L Normal 135-145 [facility] Comment on above: Performed By: #### C HM7, IPB, MGO, HFP ####[facility] (DEFAULT)[address] [place] [address] Urea nitrogen [Mass/Vol] 13 mg/dL Normal 7-25 [facility] [place] Comment on above: Performed By: #### C HM7, IPB, MGO, HFP ####[facility] (DEFAULT)[address] [facility] [place] [address] Urea nitrogen/Creatinine [Mass ratio] 11 mg/mg Normal [facility] [place] Comment on above: Performed By: #### C HM7, IPB, MGO, HFP ####[facility] (DEFAULT)[address] [place] [address] Anion gap [Moles/Vol] 13 mmol/L 7 - 17 mmol/L [facility] Chloride [Moles/Vol] 113 mmol/L High 98 - 10 8 mmol/L [facility] CO2 [Moles/Vol] 19 mmol/L Low 21 - 31 mmol/L [facility] Creatinine [Mass/Vol] 1.22 mg/dL 0.70 - 1.30 mg/dL [facility] eGFR, CKD-EPI, Male 72 - PINF [facility] Glucose [Mass/Vol] 107 mg/dL High 70 - 99 mg/dL [facility] Osmolality Calc [Osmolality] [address] Potassium [Moles/Vol] 3.9 mmol/L 3.5 - 5.0 mmol/L [facility] Sodium [Moles/Vol] 141 mmol/L 135 - 145 mmol/L [facility] Urea nitrogen [Mass/Vol] 13 mg/dL 7 - 25 mg/dL [facility] Urea nitrogen/Creatinine [Mass ratio] 11 mg/mg [facility] HEPATIC FUNCTION PANELon Albumin [Mass/Vol] 2.9 g/dL Low 3.5-5.0 [facility] Comment on above: Performed By: #### C HM7, IPB, MGO, HFP ####[facility] (DEFAULT)[address] [place] [address] ALP [Catalytic activity/Vol] 111 U/L Normal 32-126 [facility] [place] Comment on above: Performed By: #### C HM7, IPB, MGO, HFP ####[facility] (DEFAULT)[address] [place] [address] ALT [Catalytic activity/Vol] 18 U/L Normal 10-52 [facility] [place] Comment on above: Performed By: #### C HM7, IPB, MGO, HFP ####[facility] (DEFAULT)[address] [place] [address] AST [Catalytic activity/Vol] 23 U/L Normal 10-39 [facility] [place] Comment on above: Performed By: #### C HM7, IPB, MGO, HFP ####[facility] (DEFAULT)[address] [place] [address] Bilirubin [Mass/Vol] 0.8 mg/dL Normal <1.5 [facility] [place] Comment on above: Performed By: #### C HM7, IPB, MGO, HFP ####[facility] (DEFAULT)[address] [place] [address] Bilirubin.indirect [Mass/Vol] 0.3 mg/dL High <0.3 [facility] [place] Comment on above: Performed By: #### C HM7, IPB, MGO, HFP ####[facility] (DEFAULT)[address] [place] [address] Protein [Mass/Vol] 6.0 g/dL Low 6.4-8.3 [facility] Comment on above: Performed By: #### C HM7, IPB, MGO, HFP ####[facility] (DEFAULT)[address] [place] [address] Albumin [Mass/Vol] 2.9 g/dL Low 3.5 - 5.0 g/dL [facility] ALP [Catalytic activity/Vol] 111 U/L 32 - 126 U/L [facility] ALT [Catalytic activity/Vol] 18 U/L 10 - 52 U/L [facility] AST [Catalytic activity/Vol] 23 U/L 10 - 39 U/L [facility] Bilirubin [Mass/Vol] 0.8 mg/dL NINF - 1.5 mg/dL [facility] Bilirubin.direct [Mass/Vol] 0.3 mg/dL High NINF - 0.3 mg/dL [facility] Protein [Mass/Vol] 6.0 g/dL Low 6.4 - 8.3 g/dL [facility] MAGNESIUMon 09-07-2023 Magnesium [Mass/Vol] 1.7 mg/dL Normal 1.6-2.6 [facility] [place] Comment on above: Performed By: #### C HM7, IPB, MGO, HFP ####[facility] (DEFAULT)[address] [place] [address] Interpretation and review of laboratory results Normal [facility] Magnesium [Mass/Vol] 1.7 mg/dL 1.6 - 2 .6 mg/dL [facility] No Panel Informationon 09-07 Interpretation and review of laboratory results Abnormal [facility] PHOSPHATE, INORGANICon 09-07 Phosphorous 4.4 mg/dL Normal 2.2-4.6 [facility] [place] Comment on above: Performed By: #### C HM7, IPB, MGO, HFP ####[facility] (DEFAULT)[address] [place] [address] Interpretation and review of laboratory results Normal [facility] Phosphate [Mass/Vol] 4.4 mg/dL 2.2 - 4 .6 mg/dL [facility] TACROLIMUS LEVEL, TROUGH ([place] E DRUG LEVEL)Ordered By: Elizabeth Maldonado on 09-07-2023 Interpretation and review of laboratory results Normal [facility] Tacrolimus (Bld) [Mass/Vol] 7.8 ng/mL [facility] TACROLIMUS LEVEL, TROUGH ([place] E DRUG LEVEL)on 09-07-2023 Tacrolimus, Trough 7.8 ng/mL Normal Bone Susana ow Transplant: 4.0-12.0, Therapeutic: 5.0-15.0 [facility] [place] Comment on above: Order Comment: Pleas e draw at specified interval PRIOR to dose. Do not hold dose to wait for level. Specimens batched twice per day, (M-F) and once per day weekendsMethod performed is a chemiluminescent microparticle immunoasssay on the [employer] Dyer i2000.The range is based on experience at [facility] and users should be aware that target concentrations vary widely depending on concomitant therapy, time post-transplant, and desired degree of immunosuppression. Performed By: #### T ACRO ####[facility] (DEFAULT)[address] [place] [address] CBC,PLATELETSon 09-06-2023 Hematocrit (Bld) [Volume fraction] 38.4 % Low 39.6-48.8 [facility] Comment on above: Performed By: #### [facility] ####[facility] (DEFAULT)[address] [place] [address] Hemoglobin (Bld) [Mass/Vol] 11.9 g/dL Low 13.4-16.8 [facility] Comment on above: Performed By: #### [facility] ####[facility] (DEFAULT)[address] [place] [address] MCV (RBC) [Entitic vol] 85.9 fL Normal 79.0-94.5 [facility] Comment on above: Performed By: #### H EMOGC ####[facility] (DEFAULT)[address] [place] [address] Mean Cell Hgb 26.6 pg Normal 26.1-33.3 [facility] Comment on above: Performed By: #### H EMOGC ####[facility] (DEFAULT)[address] [facility] [place] [address] Mean Cell Hgb Conc 31.0 g/dL Low 31.9-36.5 [facility] Comment on above: Performed By: #### H EMOGC ####[facility] (DEFAULT)[address] [facility] [place] [address] Platelet mean volume (Bld) [Entitic vol] 9.7 fL Normal 8.7-12.3 [facility] [place] Comment on above: Performed By: #### H EMOGC ####[facility] (DEFAULT)[address] [facility] [place] [address] Platelets (Bld) [#/Vol] 181 10*3/uL Normal 146-337 [facility] [place] Comment on above: Performed By: #### H EMOGC ####[facility] (DEFAULT)[address] [place] [address] RBC (Bld) [#/Vol] 4.47 10*6/uL Normal 4.38-5.83 [facility] [place] Comment on above: Performed By: #### H EMOGC ####[facility] (DEFAULT)[address] [facility] [place] [address] RBC Distribution 13.4 % Normal 10.9-14.3 [facility] Comment on above: Performed By: #### H EMOGC ####[facility] (DEFAULT)[address] [place] [address] WBC (Bld) [#/Vol] 4.41 10*3/uL Normal 3.73-10.10 [facility] [place] Comment on above: Performed By: #### H [facility] ####[facility] (DEFAULT)[address] [place] [address] Erythrocyte distribution width (RBC) [Ratio] 13.4 % 10.9 - 14.3 % [facility] Hematocrit (Bld) [Volume fraction] 38.4 % Low 39.6 - 48.8 % [facility] Hemoglobin (Bld) [Mass/Vol] 11.9 g/dL Low 13.4 - 16.8 g/dL [facility] Interpretation and review of laboratory results Abnormal [facility] MCH (RBC) [Entitic mass] 26.6 pg 26.1 - 33.3 pg [facility] MCHC (RBC) [Mass/Vol] 31.0 g/dL Low 31.9 - 36.5 g/dL [facility] MCV (RBC) [Entitic vol] 85.9 fL 79.0 - 94.5 fL [facility] Platelet mean volume (Bld) [Entitic vol] 9.7 fL 8.7 - 12.3 fL [facility] Platelets (Bld) [#/Vol] 181 10*3/uL 146 - 337 K/uL [facility] RBC (Bld) [#/Vol] 4.47 10*6/uL [facility] WBC (Bld) [#/Vol] 4.41 10*3/uL 3.73 - 10. 10 K/uL [facility] CHEM 7 (LYTES,BUN,CREA,GLUC) on 09-06-2023 Anion gap [Moles/Vol] 14 mmol/L 7 - 17 mmol/L [facility] Chloride [Moles/Vol] 109 mmol/L High 98 - 10 8 mmol/L [facility] CO2 [Moles/Vol] 19 mmol/L Low 21 - 31 mmol/L [facility] Creatinine [Mass/Vol] 1.26 mg/dL 0.70 - 1.30 mg/dL [facility] eGFR, CKD-EPI, Male 69 - PINF [facility] Glucose [Mass/Vol] 114 mg/dL High 70 - 99 mg/dL [facility] Osmolality Calc [Osmolality] [address] [facility] Potassium [Moles/Vol] 4.1 mmol/L 3.5 - 5.0 mmol/L [facility] Sodium [Moles/Vol] 138 mmol/L 135 - 145 mmol/L [facility] Urea nitrogen [Mass/Vol] 16 mg/dL 7 - 25 mg/dL [facility] Urea nitrogen/Creatinine [Mass ratio] 13 mg/mg [facility] Anion gap [Moles/Vol] 14 mmol/L Normal 7-17 [facility] [place] Comment on above: Performed By: #### NATHANIEL RAMÍREZ, HFP ####[facility] (DEFAULT)[address] [place] [address] Chloride [Moles/Vol] 109 mmol/L High 98-108 [facility] [place] Comment on above: Performed By: #### NATHANIEL RAMÍREZ, HFP ####[facility] (DEFAULT)[address] [place] [address] CO2 [Moles/Vol] 19 mmol/L Low 21-31 [facility] Comment on above: Performed By: #### NATHANIEL RAMÍREZ, HFP ####[facility] (DEFAULT)[address] [facility] [place] [address] Creatinine [Mass/Vol] 1.26 mg/dL Normal 0.70-1.30 [facility] [place] Comment on above: Performed By: #### NATHANIEL RAMÍREZ, HFP ####[facility] (DEFAULT)[address] [facility] [place] [address] GFR/1.73 sq M.predicted among non-blacks MDRD (S/P/Bld) [Vol rate/Area] 69 mL/min/{1.73_m2} Normal >=60 [facility] Comment on above: Result Comment: Repo rted eGFR is based on the CKD-EPI 2020 equation using creatinine, age, and sex. Performed By: #### NATHANIEL RAMÍREZ, HFP ####[facility] (DEFAULT)[address] [place] [address] Glucose [Mass/Vol] 114 mg/dL High 70-99 [facility] Comment on above: Performed By: #### NATHANIEL RAMÍREZ, HFP ####[facility] (DEFAULT)[address] [place] [address] Osmolality [Osmolality] 291 mosm/kg Normal 278-305 [facility] [place] Comment on above: Performed By: #### NATHANIEL RAMÍREZ, HFP ####[facility] (DEFAULT)[address] [place] [address] Potassium [Moles/Vol] 4.1 mmol/L Normal 3.5-5.0 [facility] [place] Comment on above: Performed By: #### NATHANIEL RAMÍREZ, HFP ####[facility] (DEFAULT)[address] [place] [address] Sodium [Moles/Vol] 138 mmol/L Normal 135-145 [facility] Comment on above: Performed By: #### NATHANIEL RAMÍREZ, HFP ####[facility] (DEFAULT)[address] [place] [address] Urea nitrogen [Mass/Vol] 16 mg/dL Normal 7-25 [facility] [place] Comment on above: Performed By: #### NATHANIEL RAMÍREZ, HFP ####[facility] (DEFAULT)[address] [place] [address] Urea nitrogen/Creatinine [Mass ratio] 13 mg/mg Normal [facility] [place] Comment on above: Performed By: #### NATHANIEL RAMÍREZ, HFP ####[facility] (DEFAULT)[address] [place] [address] HEPATIC FUNCTION PANELon Albumin [Mass/Vol] 3.0 g/dL Low 3.5 - 5.0 g/dL [facility] ALP [Catalytic activity/Vol] 115 U/L 32 - 126 U/L [facility] ALT [Catalytic activity/Vol] 25 U/L 10 - 52 U/L [facility] AST [Catalytic activity/Vol] 31 U/L 10 - 39 U/L [facility] Bilirubin [Mass/Vol] 1.0 mg/dL NINF - 1.5 mg/dL [facility] Bilirubin.direct [Mass/Vol] 0.3 mg/dL High NINF - 0.3 mg/dL [facility] Protein [Mass/Vol] 6.3 g/dL Low 6.4 - 8.3 g/dL [facility] Albumin [Mass/Vol] 3.0 g/dL Low 3.5-5.0 [facility] Comment on above: Performed By: #### M MERLE CHM7, HFP ####[facility] (DEFAULT)[address] [facility] [place] [address] ALP [Catalytic activity/Vol] 115 U/L Normal 32-126 [facility] [place] Comment on above: Performed By: #### M MERLE CHM7, HFP ####[facility] (DEFAULT)[address] [facility] [address] ALT [Catalytic activity/Vol] 25 U/L Normal 10-52 [facility] [place] Comment on above: Performed By: #### M GO, CHM7, HFP ####[facility] (DEFAULT)[address] [facility] [address] AST [Catalytic activity/Vol] 31 U/L Normal 10-39 [facility] [place] Comment on above: Performed By: #### M GO, CHM7, HFP ####[facility] (DEFAULT)[address] [place] [address] Bilirubin [Mass/Vol] 1.0 mg/dL Normal <1.5 [facility] [place] Comment on above: Performed By: #### NATHANIEL RAMÍREZ, HFP ####[facility] (DEFAULT)[address] [facility] [place] [address] Bilirubin.indirect [Mass/Vol] 0.3 mg/dL High <0.3 [facility] [place] Comment on above: Performed By: #### NATHANIEL RAMÍREZ, HFP ####[facility] (DEFAULT)[address] [place] [address] Protein [Mass/Vol] 6.3 g/dL Low 6.4-8.3 [facility] Comment on above: Performed By: #### NATHANIEL RAMÍREZ, HFP ####[facility] (DEFAULT)[address] [place] [address] MAGNESIUMon 09-06-2023 Interpretation and review of laboratory results Normal [facility] Magnesium [Mass/Vol] 2.0 mg/dL 1.6 - 2 .6 mg/dL [facility] Magnesium [Mass/Vol] 2.0 mg/dL Normal 1.6-2.6 [facility] [place] Comment on above: Performed By: #### NATHANIEL RAMÍREZ, HFP ####[facility] (DEFAULT)[address] [place] [address] No Panel Informationon 09-06 Interpretation and review of laboratory results Abnormal [facility] TACROLIMUS LEVEL, TROUGH ([place] E DRUG LEVEL)on 09-06-2023 Interpretation and review of laboratory results Normal [facility] Tacrolimus (Bld) [Mass/Vol] 6.7 ng/mL [facility] Tacrolimus, Trough 6.7 ng/mL Normal Bone Susana ow Transplant: 4.0-12.0, Therapeutic: 5.0-15.0 [facility] [place] Comment on above: Order Comment: Pleas e draw at specified interval PRIOR to dose. Do not hold dose to wait for level. Specimens batched twice per day, (M-F) and once per day weekendsMethod performed is a chemiluminescent microparticle immunoasssay on the [employer] Dyer i2000.The range is based on experience at [facility] and users should be aware that target concentrations vary widely depending on concomitant therapy, time post-transplant, and desired degree of immunosuppression. Performed By: #### T ACRO ####[facility] (DEFAULT)[address] [facility] [place] [address] CBC,PLATELETSon 09-05-2023 Hematocrit (Bld) [Volume fraction] 35.6 % Low 39.6-48.8 [facility] [place] Comment on above: Performed By: #### H EMOGC ####[facility] (DEFAULT)[address] [place] [address] Hemoglobin (Bld) [Mass/Vol] 11.4 g/dL Low 13.4-16.8 [facility] [place] Comment on above: Performed By: #### H EMOGC ####[facility] (DEFAULT)[address] [place] [address] MCV (RBC) [Entitic vol] 86.0 fL Normal 79.0-94.5 [facility] [place] Comment on above: Performed By: #### H EMOGC ####[facility] (DEFAULT)[address] [place] [address] Mean Cell Hgb 27.5 pg Normal 26.1-33.3 [facility] [place] Comment on above: Performed By: #### H EMOGC ####[facility] (DEFAULT)[address] [place] [address] Mean Cell Hgb Conc 32.0 g/dL Normal 31.9-36.5 [facility] Comment on above: Performed By: #### H EMOGC ####[facility] (DEFAULT)[address] [facility] [place] [address] Platelet mean volume (Bld) [Entitic vol] 10.0 fL Normal 8.7-12.3 [facility] [place] Comment on above: Performed By: #### H EMO ####[facility] (DEFAULT)[address] [place] [address] Platelets (Bld) [#/Vol] 170 10*3/uL Normal 146-337 [facility] [place] Comment on above: Performed By: #### H EMO ####[facility] (DEFAULT)[address] [place] [address] RBC (Bld) [#/Vol] 4.14 10*6/uL Low 4.38-5.83 [facility] [place] Comment on above: Performed By: #### H EMO ####[facility] (DEFAULT)[address] [place] [address] RBC Distribution 13.5 % Normal 10.9-14.3 [facility] Comment on above: Performed By: #### H EMOGC ####[facility] (DEFAULT)[address] [place] [address] WBC (Bld) [#/Vol] 4.24 10*3/uL Normal 3.73-10.10 [facility] [place] Comment on above: Performed By: #### H EMO ####[facility] (DEFAULT)[address] [place] [address] Erythrocyte distribution width (RBC) [Ratio] 13.5 % 10.9 - 14.3 % [facility] Hematocrit (Bld) [Volume fraction] 35.6 % Low 39.6 - 48.8 % [facility] Hemoglobin (Bld) [Mass/Vol] 11.4 g/dL Low 13.4 - 16.8 g/dL [facility] Interpretation and review of laboratory results Abnormal [facility] MCH (RBC) [Entitic mass] 27.5 pg 26.1 - 33.3 pg [facility] MCHC (RBC) [Mass/Vol] 32.0 g/dL 31.9 - 36.5 g/dL [facility] MCV (RBC) [Entitic vol] 86.0 fL 79.0 - 94.5 fL [facility] Platelet mean volume (Bld) [Entitic vol] 10.0 fL 8.7 - 12.3 fL [facility] Platelets (Bld) [#/Vol] 170 10*3/uL 146 - 337 K/uL [facility] RBC (Bld) [#/Vol] 4.14 10*6/uL Low [facility] WBC (Bld) [#/Vol] 4.24 10*3/uL 3.73 - 10. 10 K/uL [facility] CHEM 7 (LYTES,BUN,CREA,GLUC) on 09-05-2023 Anion gap [Moles/Vol] 12 mmol/L Normal 7-17 [facility] [place] Comment on above: Performed By: #### H FP, CHM7, MGO ####[facility] (DEFAULT)[address] [place] [address] Chloride [Moles/Vol] 107 mmol/L Normal 98-108 [facility] [place] Comment on above: Performed By: #### H FP, CHM7, MGO ####[facility] (DEFAULT)[address] [place] [address] CO2 [Moles/Vol] 20 mmol/L Low 21-31 [facility] Comment on above: Performed By: #### H FP, CHM7, MGO ####[facility] (DEFAULT)[address] [place] [address] Creatinine [Mass/Vol] 1.43 mg/dL High 0.70-1.30 [facility] [place] Comment on above: Performed By: #### H FP, CHM7, MGO ####[facility] (DEFAULT)[address] [place] [address] GFR/1.73 sq M.predicted among non-blacks MDRD (S/P/Bld) [Vol rate/Area] 59 mL/min/{1.73_m2} Low >=60 [facility] [place] Comment on above: Result Comment: Repo rted eGFR is based on the CKD-EPI 2020 equation using creatinine, age, and sex. Performed By: #### H ANTWAN CHM7, MGO ####[facility] (DEFAULT)[address] [place] [address] Glucose [Mass/Vol] 111 mg/dL High 70-99 [facility] Comment on above: Performed By: #### H ANWTAN CHM7, MGO ####[facility] (DEFAULT)[address] [place] [address] Osmolality [Osmolality] 286 mosm/kg Normal 278-305 [facility] [place] Comment on above: Performed By: #### H FP, CHM7, MGO ####[facility] (DEFAULT)[address] [place] [address] Potassium [Moles/Vol] 4.2 mmol/L Normal 3.5-5.0 [facility] [place] Comment on above: Performed By: #### H ANTWAN, CHM7, MGO ####[facility] (DEFAULT)[address] [place] [address] Sodium [Moles/Vol] 135 mmol/L Normal 135-145 [facility] Comment on above: Performed By: #### H FP, CHM7, MGO ####[facility] (DEFAULT)[address] [place] [address] Urea nitrogen [Mass/Vol] 18 mg/dL Normal 7-25 [facility] [place] Comment on above: Performed By: #### H FP, CHM7, MGO ####[facility] (DEFAULT)[address] [place] [address] Urea nitrogen/Creatinine [Mass ratio] 13 mg/mg Normal [facility] [place] Comment on above: Performed By: #### H FP, CHM7, MGO ####[facility] (DEFAULT)[address] [place] [address] Anion gap [Moles/Vol] 12 mmol/L 7 - 17 mmol/L [facility] Chloride [Moles/Vol] 107 mmol/L 98 - 10 8 mmol/L [facility] CO2 [Moles/Vol] 20 mmol/L Low 21 - 31 mmol/L [facility] Creatinine [Mass/Vol] 1.43 mg/dL High 0.70 - 1.30 mg/dL [facility] eGFR, CKD-EPI, Male 60 Low - PINF [facility] Glucose [Mass/Vol] 111 mg/dL High 70 - 99 mg/dL [facility] Osmolality Calc [Osmolality] [address] [facility] Potassium [Moles/Vol] 4.2 mmol/L 3.5 - 5.0 mmol/L [facility] Sodium [Moles/Vol] 135 mmol/L 135 - 145 mmol/L [facility] Urea nitrogen [Mass/Vol] 18 mg/dL 7 - 25 mg/dL [facility] Urea nitrogen/Creatinine [Mass ratio] 13 mg/mg [facility] CONTINUOUS CARDIAC MONITORIN G STRIPon 09-05-2023 [facility] HEPATIC FUNCTION PANELon Albumin [Mass/Vol] 2.8 g/dL Low 3.5-5.0 [facility] Comment on above: Performed By: #### H NATHANIEL MONCADA, MGO ####[facility] (DEFAULT)[address] [place] [address] ALP [Catalytic activity/Vol] 103 U/L Normal 32-126 [facility] [place] Comment on above: Performed By: #### H NATHANIEL MONCADA, MGO ####[facility] (DEFAULT)[address] [place] [address] ALT [Catalytic activity/Vol] 26 U/L Normal 10-52 [facility] Comment on above: Performed By: #### H ANTWAN CHM7, MGO ####[facility] (DEFAULT)[address] [place] [address] AST [Catalytic activity/Vol] 38 U/L Normal 10-39 [facility] Comment on above: Performed By: #### H FP, CHM7, MGO ####[facility] (DEFAULT)[address] [place] [address] Bilirubin [Mass/Vol] 0.9 mg/dL Normal <1.5 [facility] Comment on above: Performed By: #### H FP, CHM7, MGO ####[facility] (DEFAULT)[address] [place] [address] Bilirubin.indirect [Mass/Vol] 0.1 mg/dL Normal <0.3 [facility] Comment on above: Performed By: #### H FP, CHM7, MGO ####[facility] (DEFAULT)[address] [facility] [address] Protein [Mass/Vol] 6.1 g/dL Low 6.4-8.3 [facility] Comment on above: Performed By: #### H FP, CHM7, MGO ####[facility] (DEFAULT)[address] [place] [address] Albumin [Mass/Vol] 2.8 g/dL Low 3.5 - 5.0 g/dL [facility] ALP [Catalytic activity/Vol] 103 U/L 32 - 126 U/L [facility] ALT [Catalytic activity/Vol] 26 U/L 10 - 52 U/L [facility] AST [Catalytic activity/Vol] 38 U/L 10 - 39 U/L [facility] Bilirubin [Mass/Vol] 0.9 mg/dL NINF - 1.5 mg/dL [facility] Bilirubin.direct [Mass/Vol] 0.1 mg/dL NINF - 0.3 mg/dL [facility] Protein [Mass/Vol] 6.1 g/dL Low 6.4 - 8.3 g/dL [facility] HISTOPLASMA ANTIGEN, FLUIDon 09-05-2023 FH SOURCE BAL RML [facility] Histo FLD interpretation Negative [facility] Histoplasma Antigen, FLUID Not detected ng/mL [facility] HISTOPLASMA CAPSULATUM/BLAST OMYCES SPECIES,PCR FLUIDon 09-05-2023 HISTO/BLASTO RESULT Negative Not Applicable [facility] Specimen source Nom (Unsp spec) BAL RML [facility] IMMUNOPHENOTYPING, TISSUE/FL UIDon 09-05-2023 BKR DX CODE Use Ordering [facility] Flow Interpretation See Comment [facility] Flow Interpreted by: Yossi Perla MD, PhD [facility] MAGNESIUMon 09-05-2023 Magnesium [Mass/Vol] 1.7 mg/dL Normal 1.6-2.6 [facility] Comment on above: Performed By: #### H FP, CHM7, MGO ####[facility] (DEFAULT)[address] [place] [address] Interpretation and review of laboratory results Normal [facility] Magnesium [Mass/Vol] 1.7 mg/dL 1.6 - 2 .6 mg/dL [facility] No Panel Informationon 09-05 Interpretation and review of laboratory results Abnormal [facility] TACROLIMUS LEVEL, TROUGH ([place] E DRUG LEVEL)Ordered By: Raymundo Mehta on 09-05-2023 Interpretation and review of laboratory results Normal [facility] Tacrolimus (Bld) [Mass/Vol] 5.3 ng/mL [facility] TACROLIMUS LEVEL, TROUGH ([place] E DRUG LEVEL)on 09-05-2023 Tacrolimus, Trough 5.3 ng/mL Normal Bone Susana ow Transplant: 4.0-12.0, Therapeutic: 5.0-15.0 [facility] Comment on above: Order Comment: Pleas e draw at specified interval PRIOR to dose. Do not hold dose to wait for level. Specimens batched twice per day, (M-F) and once per day weekendsMethod performed is a chemiluminescent microparticle immunoasssay on the [employer] Dyer i2000.The range is based on experience at [facility] and users should be aware that target concentrations vary widely depending on concomitant therapy, time post-transplant, and desired degree of immunosuppression. Performed By: #### T ACRO ####[facility] (DEFAULT)[address] [place] [address], [place] [address] ARTERIAL BLOOD GAS (FULL PUENTE EL)on 09-04-2023 Base Excess -1.2 mmol/L Normal -3.0-3.0 [facility] Comment on above: Performed By: #### G YASMINE ####[facility] (DEFAULT)[address] [facility] [place] [address] Carboxyhemoglobin 0.7 % Normal <=1.5 [facility] Comment on above: Performed By: #### Vale UNDERWOOD ####[facility] (DEFAULT)[address] [place] [address] Glucose [Mass/Vol] 159 mg/dL High 70-99 [facility] Comment on above: Performed By: #### G YASMINE ####[facility] (DEFAULT)[address] [facility] [place] [address] HCO3 (Bld) [Moles/Vol] 22 mmol/L Normal 22-28 [facility] Comment on above: Performed By: #### Vale UNDERWOOD ####[facility] (DEFAULT)[address] [place] [address] Hematocrit (Bld) [Volume fraction] 38.0 % Low 40.2-50.4 [facility] Comment on above: Performed By: #### Vale UNDERWOOD ####[facility] (DEFAULT)[address] [facility] [place] [address] Hemoglobin (Bld) [Mass/Vol] 12.6 g/dL Low 13.4-16.8 [facility] Comment on above: Performed By: #### G ASALL ####[facility] (DEFAULT)[address] [place] [address] Ionized Calcium, Whole Blood 4.79 mg/dL Normal 4.60-5.30 [facility] [place] Comment on above: Performed By: #### G ASALL ####[facility] (DEFAULT)[address] [facility] [place] [address] Lactate, Whole Blood 2.0 mmol/L High 0.5-1.6 [facility] Comment on above: Performed By: #### G ASAASHISH ####[facility] (DEFAULT)[address] [facility] [place] [address] Methemoglobin 0.0 % Normal <=1.5 [facility] Comment on above: Performed By: #### G ASAASHISH ####[facility] (DEFAULT)[address] [place], [place] [address], [place] [address] Oxyhemoglobin 91 % Low 94-98 [facility] Comment on above: Performed By: #### G YSAMINE ####[facility] (DEFAULT)[address] [place], [place] [address], [place] [address] pCO2 30 mm Hg Low 32-48 [facility] Comment on above: Performed By: #### G ASALL ####[facility] (DEFAULT)[address] [facility] [place] [address] pH (Bld) 7.48 [pH] High 7.35-7.45 [facility] Comment on above: Performed By: #### G ASALL ####[facility] (DEFAULT)[address] [address] [place], [place] [address], [place] [address] pO2 62 mm Hg Low 83-108 [facility] Comment on above: Performed By: #### G ASAASHISH ####[facility] (DEFAULT)[address] [facility] [place] [address] Potassium [Moles/Vol] 4.2 mmol/L Normal 3.5-5.0 [facility] Comment on above: Performed By: #### G YASMINE ####[facility] (DEFAULT)[address] [place] [address] sO2 92 % Low 94-98 [facility] [place] Comment on above: Performed By: #### G YASMINE ####[facility] (DEFAULT)[address] [place] [address] Sodium [Moles/Vol] 130 mmol/L Low 135-145 [facility] Comment on above: Performed By: #### G YASMINE ####[facility] (DEFAULT)[address] [place] [address] Specimen type Nom (Spec) Arterial Normal [facility] Comment on above: Performed By: #### G YASMINE ####[facility] (DEFAULT)[address] [place] [address] Base excess Calc (Bld) [Moles/Vol] -1.2000 mmol/L -3.0 - 3.0 mmol/L [facility] Calcium.ionized (Bld) [Mass/Vol] 4.79 mg/dL 4.60 - 5.30 mg/dL [facility] Carboxyhemoglobin (Bld) [Mass fraction] 0.7 % NINF - 1.5 % [facility] CO2 (Bld) [Partial pressure] 30 mm[Hg] Low [facility] Glucose [Mass/Vol] 159 mg/dL High 70 - 99 mg/dL [facility] HCO3 (Bld) [Moles/Vol] 22 mmol/L 22 - 28 mmol/L [facility] Hematocrit (Bld) [Volume fraction] 38.0 % Low 40.2 - 50.4 % [facility] Hemoglobin (Bld) [Mass/Vol] 12.6 g/dL Low 13.4 - 16.8 g/dL [facility] Interpretation and review of laboratory results Abnormal [facility] Lactate [Moles/Vol] 2.0 mmol/L High 0.5 - 1. 6 mmol/L [facility] Methemoglobin (Bld) [Mass fraction] 0.0 % NINF - 1.5 % [facility] Oxygen (Bld) [Partial pressure] 62 mm[Hg] Low [facility] Oxygen saturation in Blood 92 % Low 94 - 98 % [facility] Oxyhemoglobin 91 % Low 94 - 98 % [facility] pH (Bld) 7.48 [pH] High 7.35 - 7.45 [facility] Potassium [Moles/Vol] 4.2 mmol/L 3.5 - 5.0 mmol/L [facility] Sodium [Moles/Vol] 130 mmol/L Low 135 - 145 mmol/L [facility] Specimen source Nom (Unsp spec) Arterial [facility] Bacteria identified Respirat ory culture Nom (Unsp spec)on 09-04-2023 Bacteria identified Cx Nom (Unsp spec) NO GROWTH DAY 2 OF 2 [facility] Microscopic observation Other stain Nom (Unsp spec) Cytocentrifuge preparation [facility] Microscopic observation Other stain Nom (Unsp spec) Neutrophils, Rare [facility] Microscopic observation Other stain Nom (Unsp spec) Red Blood Cells Present [facility] Microscopic observation Other stain Nom (Unsp spec) No organisms seen [facility] Bacteria identified Respirat ory culture Nom (Unsp spec)Ordered By: Jose Salgado on 09-04-2023 Bacteria identified Cx Nom (Unsp spec) NO GROWTH DAY 2 OF 2 [facility] Microscopic observation Other stain Nom (Unsp spec) Cytocentrifuge preparation [facility] Microscopic observation Other stain Nom (Unsp spec) Neutrophils, Moderate [facility] Microscopic observation Other stain Nom (Unsp spec) Red Blood Cells Present [facility] Microscopic observation Other stain Nom (Unsp spec) No organisms seen [facility] CBC,PLATELETSon 09-04-2023 Hematocrit (Bld) [Volume fraction] 38.7 % Low 39.6-48.8 [facility] Comment on above: Performed By: #### H EMOGC ####[facility] (DEFAULT)[address] [place] [address] Hemoglobin (Bld) [Mass/Vol] 12.3 g/dL Low 13.4-16.8 [facility] Comment on above: Performed By: #### H EMOGC ####[facility] (DEFAULT)[address] [facility] [place] [address] MCV (RBC) [Entitic vol] 87.8 fL Normal 79.0-94.5 [facility] Comment on above: Performed By: #### H EMOGC ####[facility] (DEFAULT)[address] [facility] [place] [address] Mean Cell Hgb 27.9 pg Normal 26.1-33.3 [facility] Comment on above: Performed By: #### H EMOGC ####[facility] (DEFAULT)[address] [facility] [place] [address] Mean Cell Hgb Conc 31.8 g/dL Low 31.9-36.5 [facility] Comment on above: Performed By: #### H EMOGC ####[facility] (DEFAULT)[address] [place] [address] Platelet mean volume (Bld) [Entitic vol] 9.8 fL Normal 8.7-12.3 [facility] Comment on above: Performed By: #### H EMOGC ####[facility] (DEFAULT)[address] [place] [address] Platelets (Bld) [#/Vol] 173 10*3/uL Normal 146-337 [facility] Comment on above: Performed By: #### H EMOGC ####[facility] (DEFAULT)[address] [place] [address] RBC (Bld) [#/Vol] 4.41 10*6/uL Normal 4.38-5.83 [facility] Comment on above: Performed By: #### [facility] ####[facility] (DEFAULT)[address] [facility] [place] [address] RBC Distribution 13.2 % Normal 10.9-14.3 [facility] Comment on above: Performed By: #### [facility] ####[facility] (DEFAULT)[address] [place] [address] WBC (Bld) [#/Vol] 4.57 10*3/uL Normal 3.73-10.10 [facility] [place] Comment on above: Performed By: #### [facility] ####[facility] (DEFAULT)[address] [place] [address] Erythrocyte distribution width (RBC) [Ratio] 13.2 % 10.9 - 14.3 % [facility] Hematocrit (Bld) [Volume fraction] 38.7 % Low 39.6 - 48.8 % [facility] Hemoglobin (Bld) [Mass/Vol] 12.3 g/dL Low 13.4 - 16.8 g/dL [facility] Interpretation and review of laboratory results Abnormal [facility] MCH (RBC) [Entitic mass] 27.9 pg 26.1 - 33.3 pg [facility] MCHC (RBC) [Mass/Vol] 31.8 g/dL Low 31.9 - 36.5 g/dL [facility] MCV (RBC) [Entitic vol] 87.8 fL 79.0 - 94.5 fL [facility] Platelet mean volume (Bld) [Entitic vol] 9.8 fL 8.7 - 12.3 fL [facility] Platelets (Bld) [#/Vol] 173 10*3/uL 146 - 337 K/uL [facility] RBC (Bld) [#/Vol] 4.41 10*6/uL [facility] WBC (Bld) [#/Vol] 4.57 10*3/uL 3.73 - 10. 10 K/uL [facility] CHEM 7 (LYTES,BUN,CREA,GLUC) on 09-04-2023 Anion gap [Moles/Vol] 16 mmol/L Normal 7-17 [facility] Comment on above: Performed By: #### NATHANIEL RAMÍREZ, HFP ####[facility] (DEFAULT)[address] [facility] [place] [address] Chloride [Moles/Vol] 104 mmol/L Normal 98-108 [facility] Comment on above: Performed By: #### NATHANIEL RAMÍREZ, HFP ####[facility] (DEFAULT)[address] [facility] [place] [address] CO2 [Moles/Vol] 18 mmol/L Low 21-31 [facility] Comment on above: Performed By: #### NATHANIEL RAMÍREZ, HFP ####[facility] (DEFAULT)[address] [facility] [place] [address] Creatinine [Mass/Vol] 1.22 mg/dL Normal 0.70-1.30 [facility] Comment on above: Performed By: #### NATHANIEL RAMÍREZ, HFP ####[facility] (DEFAULT)[address] [place] [address] GFR/1.73 sq M.predicted among non-blacks MDRD (S/P/Bld) [Vol rate/Area] 71 mL/min/{1.73_m2} Normal >=60 [facility] Comment on above: Result Comment: Repo rted eGFR is based on the CKD-EPI 2020 equation using creatinine, age, and sex. Performed By: #### NATHANIEL RAMÍREZ, HFP ####[facility] (DEFAULT)[address] [facility] [place] [address] Glucose [Mass/Vol] 124 mg/dL High 70-99 [facility] Comment on above: Performed By: #### NATHANIEL RAMÍREZ, HFP ####[facility] (DEFAULT)[address] [facility] [place] [address] Osmolality [Osmolality] 284 mosm/kg Normal 278-305 [facility] [place] Comment on above: Performed By: #### NATHANIEL RAMÍREZ, HFP ####[facility] (DEFAULT)[address] [place] [address] Potassium [Moles/Vol] 3.9 mmol/L Normal 3.5-5.0 [facility] [place] Comment on above: Performed By: #### NATHANIEL RAMÍREZ, HFP ####[facility] (DEFAULT)[address] [facility] [place] [address] Sodium [Moles/Vol] 134 mmol/L Low 135-145 [facility] Comment on above: Performed By: #### NATHANIEL RAMÍREZ, HFP ####[facility] (DEFAULT)[address] [facility] [place] [address] Urea nitrogen [Mass/Vol] 15 mg/dL Normal 7-25 [facility] [place] Comment on above: Performed By: #### NATHANIEL RAMÍREZ, HFP ####[facility] (DEFAULT)[address] [facility] [place] [address] Urea nitrogen/Creatinine [Mass ratio] 12 mg/mg Normal [facility] [place] Comment on above: Performed By: #### NATHANIEL RAMÍREZ, HFP ####[facility] (DEFAULT)[address] [facility] [place] [address] Anion gap [Moles/Vol] 16 mmol/L 7 - 17 mmol/L [facility] Chloride [Moles/Vol] 104 mmol/L 98 - 10 8 mmol/L [facility] CO2 [Moles/Vol] 18 mmol/L Low 21 - 31 mmol/L [facility] Creatinine [Mass/Vol] 1.22 mg/dL 0.70 - 1.30 mg/dL [facility] eGFR, CKD-EPI, Male 71 [facility] Glucose [Mass/Vol] 124 mg/dL High 70 - 99 mg/dL [facility] Osmolality Calc [Osmolality] 284 [facility] Potassium [Moles/Vol] 3.9 mmol/L 3.5 - 5.0 mmol/L [facility] Sodium [Moles/Vol] 134 mmol/L Low 135 - 145 mmol/L [facility] Urea nitrogen [Mass/Vol] 15 mg/dL 7 - 25 mg/dL [facility] Urea nitrogen/Creatinine [Mass ratio] 12 mg/mg [facility] CMV PCR,FLUIDS,URINE,EYE ETC on 09-04-2023 Specimen source Nom (Unsp spec) BAL LLL [facility] Specimen source Nom (Unsp spec) BAL RML [facility] HEPATIC FUNCTION PANELon Albumin [Mass/Vol] 3.0 g/dL Low 3.5-5.0 [facility] Comment on above: Performed By: #### NATHANIEL RAMÍREZ, HFP ####[facility] (DEFAULT)[address] [place] [address] ALP [Catalytic activity/Vol] 112 U/L Normal 32-126 [facility] Comment on above: Performed By: #### NATHANIEL RAMÍREZ, HFP ####[facility] (DEFAULT)[address] [place] [address] ALT [Catalytic activity/Vol] 22 U/L Normal 10-52 [facility] Comment on above: Performed By: #### NATHANIEL RAMÍREZ, HFP ####[facility] (DEFAULT)[address] [place] [address] AST [Catalytic activity/Vol] 30 U/L Normal 10-39 [facility] [place] Comment on above: Performed By: #### NATHANIEL RAMÍREZ, HFP ####[facility] (DEFAULT)[address] [place] [address] Bilirubin [Mass/Vol] 1.2 mg/dL Normal <1.5 [facility] Comment on above: Performed By: #### M GO, CHM7, HFP ####[facility] (DEFAULT)[address] [place] [address] Bilirubin.indirect [Mass/Vol] 0.4 mg/dL High <0.3 [facility] Comment on above: Performed By: #### M HELEN BLOOMM7, HFP ####[facility] (DEFAULT)[address] [facility] [place] [address] Protein [Mass/Vol] 6.4 g/dL Normal 6.4-8.3 [facility] Comment on above: Performed By: #### M NATHANIEL BLOOM, HFP ####[facility] (DEFAULT)[address] [place] [address] Albumin [Mass/Vol] 3.0 g/dL Low 3.5 - 5.0 g/dL [facility] ALP [Catalytic activity/Vol] 112 U/L 32 - 126 U/L [facility] ALT [Catalytic activity/Vol] 22 U/L 10 - 52 U/L [facility] AST [Catalytic activity/Vol] 30 U/L 10 - 39 U/L [facility] Bilirubin [Mass/Vol] 1.2 mg/dL NINF - 1.5 mg/dL [facility] Bilirubin.direct [Mass/Vol] 0.4 mg/dL High NINF - 0.3 mg/dL [facility] Protein [Mass/Vol] 6.4 g/dL 6.4 - 8.3 g/dL [facility] LEGIONELLA PCRon 09-04-2023 Legionella sp rRNA Probe Ql (Unsp spec) Negative Not Applicable [facility] Specimen source Nom (Unsp spec) BAL RML [facility] - Microbiology an d Antimicrobial susceptibilityon 09-04-2023 CMV DNA ESTELITA+probe Ql (Unsp spec) Negative Negative [facility] MAGNESIUMon 09-04-2023 Magnesium [Mass/Vol] 1.4 mg/dL Low 1.6-2.6 [facility] Comment on above: Performed By: #### M , CHM7, HFP ####[facility] (DEFAULT)[address] [place] [address] Magnesium [Mass/Vol] 1.4 mg/dL Low 1.6 - 2 .6 mg/dL [facility] No Panel Informationon 09-04 Annotation comment [Interpretation] Narrative DNR [facility] PN Report Status DNR [facility] Pneumocystis jiroveci,PCR result Negative Not Applicable [facility] Interpretation and review of laboratory results Abnormal [facility] PNEUMOCYSTIS JIROVECI,PCRon 09-04-2023 Specimen source Nom (Unsp spec) BAL LLL [facility] Specimen source Nom (Unsp spec) BAL RML [facility] Portable XR Chest Viewson RADIOLOGY RADIOLOGY [facility] Radiology Study observation (narrative) [facility] Portable XR Chest ViewsOrder ed By: Joanie Nugent on 09-04-2023 [facility] Work Phone: TACROLIMUS LEVEL, TROUGH ([place] E DRUG LEVEL)on 09-04-2023 Interpretation and review of laboratory results Abnormal [facility] Tacrolimus (Bld) [Mass/Vol] 3.6 ng/mL Low [facility] Tacrolimus, Trough 3.6 ng/mL Low [facility] Transplant: 4.0-12.0, Therapeutic: 5.0-15.0 [facility] Comment on above: Order Comment: Pleas e draw at specified interval PRIOR to dose. Do not hold dose to wait for level. Specimens batched twice per day, (M-F) and once per day weekendsMethod performed is a chemiluminescent microparticle immunoasssay on the [employer] Dyer i2000.The range is based on experience at [facility] and users should be aware that target concentrations vary widely depending on concomitant therapy, time post-transplant, and desired degree of immunosuppression. Performed By: #### T ACRO ####[facility] (DEFAULT)[address] [place] [address] XR CHEST PORTABLEon 09-04-20 23 XR CHEST PORTABLE Normal [facility] ASPERGILLUS ANTIGEN, BALon 1 Galactomannan Ag IA Qn (Unsp spec) <0.500 NINF [facility] Galactomannan Ag IA Qn (Unsp spec) <0.500 NINF [facility] BAL CONSULTOrdered By: Noa Peralta on 09-03-2023 ALVEOLAR MACROPHAGES 32 % [facility] Work Phone: Bal comments Correlation with microbiology stains and cultures is recommended. [facility] Work Phone: Bal Diff Quik Stain Quality Check Acceptable [facility] Work Phone: BKR BAL INTERPRETATION Cellular specimen comprised of alveolar macrophages and small lymphocytes. No definitive microorganisms are observed. Moderate degenerative changes. [facility] Work Phone: BKR DX CODE Use Ordering [facility] Work Phone: Eosinophils Patterson stain Ql (Unsp spec) 0 % [facility] Work Phone: Lymphocytes/100 WBC (Bld) 57 % [facility] Work Phone: Neutrophils/100 WBC Manual cnt (Bronch spec) 11 % [facility] Work Phone: Pathologist review Jame (Unsp spec) [Interp] Leonardo Peralta MD [facility] Work Phone: [facility] Work Phone: BAL CONSULTon 09-03-2023 ALVEOLAR MACROPHAGES 33 % [facility] Bal comments Correlation with microbiology stains and cultures is recommended. Correlation with viral studies is recommended. [facility] Bal Diff Quik Stain Quality Check Acceptable [facility] BKR BAL INTERPRETATION Cellular specimen comprised of alveolar macrophages and small lymphocytes. No definitive microorganisms are observed. Rare degenerating cells with changes suggestive of viral cytopathic effect are noted. Moderate degenerative changes. [facility] BKR DX CODE Use Ordering [facility] Eosinophils Patterson stain Ql (Unsp spec) 0 % [facility] Lymphocytes/100 WBC (Bld) 49 % [facility] Neutrophils/100 WBC Manual cnt (Bronch spec) 18 % [facility] Pathologist review Jame (Unsp spec) [Interp] Leonardo Peralta MD [facility] BRONCHOSCOPYon 09-03-2023 LAB, [facility] CBC,PLATELETSon 09-03-2023 Hematocrit (Bld) [Volume fraction] 39.6 % Normal 39.6-48.8 [facility] Comment on above: Performed By: #### [facility] ####[facility] (DEFAULT)[address] [place] [address] Hemoglobin (Bld) [Mass/Vol] 12.8 g/dL Low 13.4-16.8 [facility] Comment on above: Performed By: #### [facility] ####[facility] (DEFAULT)[address] [place] [address] MCV (RBC) [Entitic vol] 85.9 fL Normal 79.0-94.5 [facility] Comment on above: Performed By: #### [facility] ####[facility] (DEFAULT)[address] [place] [address] Mean Cell Hgb 27.8 pg Normal 26.1-33.3 [facility] Comment on above: Performed By: #### H [facility] ####[facility] (DEFAULT)[address] [place] [address] Mean Cell Hgb Conc 32.3 g/dL Normal 31.9-36.5 [facility] Comment on above: Performed By: #### H [place] ####[facility] (DEFAULT)[address] [place] [address] Platelet mean volume (Bld) [Entitic vol] 9.4 fL Normal 8.7-12.3 [facility] Comment on above: Performed By: #### H EMO ####[facility] (DEFAULT)[address] [place] [address] Platelets (Bld) [#/Vol] 222 10*3/uL Normal 146-337 [facility] Comment on above: Performed By: #### H EMO ####[facility] (DEFAULT)[address] [place] [address] RBC (Bld) [#/Vol] 4.61 10*6/uL Normal 4.38-5.83 [facility] Comment on above: Performed By: #### H EMO ####[facility] (DEFAULT)[address] [place] [address] RBC Distribution 13.4 % Normal 10.9-14.3 [facility] Comment on above: Performed By: #### H EMO ####[facility] (DEFAULT)[address] [place] [address] WBC (Bld) [#/Vol] 4.36 10*3/uL Normal 3.73-10.10 [facility] Comment on above: Performed By: #### H EMO ####[facility] (DEFAULT)[address] [place] [address] Erythrocyte distribution width (RBC) [Ratio] 13.4 % 10.9 - 14.3 % [facility] Hematocrit (Bld) [Volume fraction] 39.6 % 39.6 - 48.8 % [facility] Hemoglobin (Bld) [Mass/Vol] 12.8 g/dL Low 13.4 - 16.8 g/dL [facility] Interpretation and review of laboratory results Abnormal [facility] MCH (RBC) [Entitic mass] 27.8 pg 26.1 - 33.3 pg [facility] MCHC (RBC) [Mass/Vol] 32.3 g/dL 31.9 - 36.5 g/dL [facility] MCV (RBC) [Entitic vol] 85.9 fL 79.0 - 94.5 fL [facility] Platelet mean volume (Bld) [Entitic vol] 9.4 fL 8.7 - 12.3 fL [facility] Platelets (Bld) [#/Vol] 222 10*3/uL 146 - 337 K/uL [facility] RBC (Bld) [#/Vol] 4.61 10*6/uL [facility] WBC (Bld) [#/Vol] 4.36 10*3/uL 3.73 - 10. 10 K/uL [facility] CHEM 7 (LYTES,BUN,CREA,GLUC) on 09-03-2023 Anion gap [Moles/Vol] 12 mmol/L Normal 7-17 [facility] Comment on above: Performed By: #### NATHANIEL RAMÍREZ, HFP ####[facility] (DEFAULT)[address] [place] [address] Chloride [Moles/Vol] 104 mmol/L Normal 98-108 [facility] Comment on above: Performed By: #### NATHANIEL RAMÍREZ, HFP ####[facility] (DEFAULT)[address] [place] [address] CO2 [Moles/Vol] 24 mmol/L Normal 21-31 [facility] Comment on above: Performed By: #### NATHANIEL RAMÍREZ, HFP ####[facility] (DEFAULT)[address] [place] [address] Creatinine [Mass/Vol] 1.20 mg/dL Normal 0.70-1.30 [facility] Comment on above: Performed By: #### NATHANIEL RAMÍREZ, HFP ####[facility] (DEFAULT)[address] [facility] [place] [address] GFR/1.73 sq M.predicted among non-blacks MDRD (S/P/Bld) [Vol rate/Area] 73 mL/min/{1.73_m2} Normal >=60 [facility] Comment on above: Result Comment: Repo rted eGFR is based on the CKD-EPI 2020 equation using creatinine, age, and sex. Performed By: #### NATHANIEL RAMÍREZ, HFP ####[facility] (DEFAULT)[address] [place] [address] Glucose [Mass/Vol] 112 mg/dL High 70-99 [facility] Comment on above: Performed By: #### NATHANIEL RAMÍREZ, HFP ####[facility] (DEFAULT)[address] [place] [address] Osmolality [Osmolality] 288 mosm/kg Normal 278-305 [facility] Comment on above: Performed By: #### NATHANIEL RAMÍREZ, HFP ####[facility] (DEFAULT)[address] [place] [address] Potassium [Moles/Vol] 4.1 mmol/L Normal 3.5-5.0 [facility] Comment on above: Performed By: #### NATHAINEL RAMÍREZ, HFP ####[facility] (DEFAULT)[address] [place] [address] Sodium [Moles/Vol] 136 mmol/L Normal 135-145 [facility] Comment on above: Performed By: #### NATHANIEL RAMÍREZ, HFP ####[facility] (DEFAULT)[address] [facility] [place] [address] Urea nitrogen [Mass/Vol] 17 mg/dL Normal 7-25 [facility] Comment on above: Performed By: #### NATHANIEL RAMÍREZ, HFP ####[facility] (DEFAULT)[address] [place] [address] Urea nitrogen/Creatinine [Mass ratio] 14 mg/mg Normal [facility] Comment on above: Performed By: #### M , [facility], [facility] ####[facility] (DEFAULT)[address] [address] [place] [address] Anion gap [Moles/Vol] 12 mmol/L 7 - 17 mmol/L [facility] Chloride [Moles/Vol] 104 mmol/L 98 - 10 8 mmol/L [facility] CO2 [Moles/Vol] 24 mmol/L 21 - 31 mmol/L [facility] Creatinine [Mass/Vol] 1.20 mg/dL 0.70 - 1.30 mg/dL [facility] eGFR, CKD-EPI, Male 73 - [facility] Glucose [Mass/Vol] 112 mg/dL High 70 - 99 mg/dL [facility] Osmolality Calc [Osmolality] [address] [facility] Potassium [Moles/Vol] 4.1 mmol/L 3.5 - 5.0 mmol/L [facility] Sodium [Moles/Vol] 136 mmol/L 135 - 145 mmol/L [facility] Urea nitrogen [Mass/Vol] 17 mg/dL 7 - 25 mg/dL [facility] Urea nitrogen/Creatinine [Mass ratio] 14 mg/mg [facility] CYTOLOGY, NON-GYNOrdered By: Sherice Jimenez on 09-03-2023 CYTOLOGIC DIAGNOSIS p7zqcTHtHOIazATtIXEgQ3dkdfI sZGOqqVSrK5XpewjyBFtpAP7tAZ 3ewYlvmDXrlBHhTOIxBkTxg1psq 375jDHau9jyJBOVksflpAw8z9iw TAHNrO7zk3r4lK16IAGmjI7vmMF pVTfwazPtEHmpysEwuzLaPwa3NV U2fNhrZhzjkOF7pLRkvRW8LJmet 2QlfVlhgWzyUJY1ETXqCeatGDxk cBS4lBNdjMkibUSoFQ8gp7znkST 3klNpSDC9jTmfmLY5dTgdgbbut2 yaaUE2gGN7SBqocJR3XXpfJyWdX 0lyHRFddU7tW01bP4shGHLofCvo RZocCFSlzHF4LCT2KTSia4ytTGQ hoKOizRXmQfCnFYqiOjg7m4pwBJ UatT43zFHafeD0hBogQWncqAC6W K86QJekf3KtMKTdaSxbMCSosE4a YzIzXGxldmVsbmZjbjIzXGxldmV beaIjTJwxhnKhj9EbvvXusEL6OP adopHghGG7uSngVVDrV5F2O852L BofceRvdrUcXgZqkpu2QNJswGrp bGlzdGxldmVsXGxldmVsbmZjMjN rpFC4UAzzJlYbPfRhwTW6SRraDz AkzCB3UOunrHWkrES0JTwoaVA8H Rn7DEy4SRnvDArqSsf0sYomhHF1 FVhffA9bULFfT73hRkK9e7vwnMA 0eDC0EMbnxCX7DPueNxFgU1kzDU BycN8tT12tJ0ntDNIllSxvNKdiO CNgqAH7PMB7STNqg9brJIXosMEr eXQlYrMiWAcyXow3e0xaVBElnI1 9lVAtnvH9dLyiSN60VXbyc1UgTA UiyRjeKVTwiV8jQtHuREwftdAja mZjbjIzXGxldmVsamMwXGxldmVs s6QrdcCbfGY3FWoaxcQnaBA0hTd cDFGyR7U0T403ZQqiorSnqtIaJe Gexat4CAHisNgbuKwerPgtzjVcN JlsapQbqcNsIqFpuCB1ULczDwNj OjLtkVQ8NXgbJuRguGA6XGdiuEV rnPL5WLunvXY1UOn1RLm0ONqnWF gcYul4iYmnqTF2XZqnmH1qGZVqQ 88eVzA5s6oqrRF0bDG8XOjwdSP7 SZacMtVxP5odVOSizR8mD55tA9x oFWUhhHilWPjhAVSpgIC2XLW0EK Src5kxKAHqqPVreIIcJlQwXHohB es3f0nrTFSbpF68yRAzuyA9qAgv BC86SLggn7HuKUExnCcaHADylA8 mYzIzXGxldmVsbmZjbjIzXGxldm FhajYyQWkqskMux7QjyeRqmPD1J RzqucAznGE3yExkHUOyU1O3M894 FBoueiQgntPbCgYpjqe2JIJwfBe cbGlzdGxldmVsXGxldmVsbmZjMj BwhQF8JUcmWgHbHzDbgMF0QAczX nDqmCG0KSvpbZWaxNV0RTmfqUQ0 CRt3APp1OJbrASquTem6jJaeaRW 6CUpdcA0cDEEyA16zVyW7xQ80KU khlDbirT36UTXcvZCssIAhpOU4F LqxtZbjcC46GPUepMLnIAsek5Hy SIOuVlP9PDZ9WRHazTtmeV83AUH qkOLrZ808oyGgSRvnMO24VBOedJ WlyyMtGzEqBSZlkQJsdSI8ZNUgH C2jpjmjPZeyZNxhRKXogoL6TIPo xBLfW6LvJDVaDY9fltdzECZ9IQp yYQMfMCK6NrHkQQKzh6Ovqoa2Nl KwkPp8x4bqTMJfPTZycPuie7giO JJ2YVLbdNOyK7vyjU0jZVGpHD5t ufrdy0qoDNbcGPbmKHRnfWY6zyJ 4INUooFOqX8UakG2aZTZzBEFnru YmtYyexB3nKmiurbQdQGJvDCJHE dDPDr3DT5sIZQpXMM8UYJKdJTBE JZeGVMKEALOGNUpNW2FKXTdZTgJ xTXUoCLKkW3mZJ2bUR5lwSrzeEi LqVHivOZRlKbRlL3PrVXVmgvszW PIbCOUGDJ7LYLHMHTTHDr9VFKS0 QPWyjhbfvGA0GHlzitSecDe9kGA wxAehtJ7sCrffgbRxSFPsUAYXfx RDFMswK69rgaEcA6RpwJXcBLJiL AalMS49qLTwUFSlgGHgLYa6pU9m DTgdyPytyrBAzLYgdY4ekrbgMPs jZjBccGFyXGxpMFxsczBccGFyfQ == [facility] Work Phone: Case Report [facility] Work Phone: Clinical History h4iycUWcGLZnzNPoEDPa V1cbfgB dDRYnwCIxV8ScrjcqZAxaYY1rUO 7jmMsrjZOciHKiEPRnRbDyv2zeu 785fXHud0xkHWLRfurztYf2tUep A85mw2L7LtmfT4lqSWHlDDytOFI jHWqqcWRpAIr8ABAmoHQfyzFpEq OcXKZgyMLoyQM5JKZgMX0vdyueY RouRIpuOPFvydY8HPFjfHJjQ7Xs LWPyUK6ewjizANY5JTbfEZHnOAV 4UgPtHDZkg6Moauw3FhLfpAz7c8 xhSVDmAHLsoYukq5byNWQ2UHYmy KWoI6jqzC9vGUZwHO4dajidp4dx UOwpAUvoSWFvvUK2jfP7ZADyjNN hU3CjbE5yAZXyVQCyrsPdwPtpxU 5cZnMyMFxjZjEgUmVuYWwgdHJhb rKiaXGiuH4aWUPxlg8= [facility] Work Phone: For Immediate Release to Patient's MyChart? Yes Yes [facility] Work Phone: Gross Description k1ccmGZiXKUdmBXrEVXh N8rdvtG tKFYnrXYmP4ZogfheBFctKJ2hHP 0syAmsrKLmcWNrRZNhKiFkc2fqf 864jUEqn3knJDWGlteliLs5yNkh D88cg3P8AiaqX90qqFGpVNO8CKQ cEUWnsZPtQVLiGBH6AXVtkLBuY9 byZEFbAY4ikbdjCBzgUHvaWGFit HT6LGMyaMKbL1JhXELoJNxwXQVh bws1RfBiJa4mcEVqnBhdGJpcXOG kXHBsYWluXGZzMjAgTExMIEJBTF iyTKCqRKVplEPlTTm3XPOvyY9ly ZAevlUywDDkhR6mmBcqQGwkBCWw CILWYHNgcWlzEHGHEIAtr5QbhJ2 ccGFyXHBhcmRccGFyXHBhcn0= [facility] Work Phone: [facility] Work Phone: HEPATIC FUNCTION PANELon Albumin [Mass/Vol] 3.2 g/dL Low 3.5-5.0 [facility] Comment on above: Performed By: #### M MERLE CHM7, HFP ####[facility] (DEFAULT)[address] [place] [address] ALP [Catalytic activity/Vol] 118 U/L Normal 32-126 [facility] Comment on above: Performed By: #### M HELEN BLOOMM7, HFP ####[facility] (DEFAULT)[address] [place] [address] ALT [Catalytic activity/Vol] 25 U/L Normal 10-52 [facility] Comment on above: Performed By: #### M HELEN BLOOMM7, HFP ####[facility] (DEFAULT)[address] [place] [address] AST [Catalytic activity/Vol] 32 U/L Normal 10-39 [facility] Comment on above: Performed By: #### M HELEN BLOOMM7, HFP ####[facility] (DEFAULT)[address] [place] [address] Bilirubin [Mass/Vol] 1.0 mg/dL Normal <1.5 [facility] Comment on above: Performed By: #### NATHANIEL RAMÍREZ, HFP ####[facility] (DEFAULT)[address] [place] [address] Bilirubin.indirect [Mass/Vol] 0.3 mg/dL High <0.3 [facility] Comment on above: Performed By: #### NATHANIEL RAMÍREZ, HFP ####[facility] (DEFAULT)[address] [place] [address] Protein [Mass/Vol] 6.5 g/dL Normal 6.4-8.3 [facility] Comment on above: Performed By: #### M HELEN BLOOMM7, HFP ####[facility] (DEFAULT)[address] [place] [address] Albumin [Mass/Vol] 3.2 g/dL Low 3.5 - 5.0 g/dL [facility] ALP [Catalytic activity/Vol] 118 U/L 32 - 126 U/L [facility] ALT [Catalytic activity/Vol] 25 U/L 10 - 52 U/L [facility] AST [Catalytic activity/Vol] 32 U/L 10 - 39 U/L [facility] Bilirubin [Mass/Vol] 1.0 mg/dL NINF - 1.5 mg/dL [facility] Bilirubin.direct [Mass/Vol] 0.3 mg/dL High NINF - 0.3 mg/dL [facility] Protein [Mass/Vol] 6.5 g/dL 6.4 - 8.3 g/dL [facility] HISTOPLASMA AND BLASTOMYCES ANTIGEN, ENZYME IMMUNOASSAY, SERMon 09-03-2023 Histoplasma/Blastomy antonia Ag Result Detected Critically abnormal Not Detected [facility] Histoplasma/Blastomy antonia Ag Value 5.3 ng/mL [facility] Interpretation and review of laboratory results Abnormal [facility] IMMUNOPHENOTYPING, TISSUE/FL UIDon 09-03-2023 BKR DX CODE Use Ordering Normal [facility] Comment on above: Order Comment: Pleas e lab add on to specimen collected yesterdayIMMUNOPHENOTYPING DIAGNOSISPATIENT NAME: GEORGE SLATER: 1970MRN: [id number]#: [id number] BY: Yossi Perla M.D,, Ph.D. [id number] TYPE: Bronchial Alveolar LavageLABORATORY INTERPRETATION:There is no [...] performance characteristicsdetermined The Flow Cytometry Laboratory at [facility]. It has notbeen cleared or approved by the FDA. This laboratory is certifiedunder the Clinical Laboratory Improvement Amendments (CLIA)as qualified to perform high complexity clinical laboratorytesting. This test is used for clinical purposes. It should notbe regarded as investigational or for research.The [facility] Flow Cytometry Laboratory lower limitof CLL MRD detection is 0.1% of the gated lymphocytes. Performed By: #### G IPP ####[facility] (DEFAULT)[address] [place] [address] Flow Interpretation See Comment Normal [facility] Comment on above: Order Comment: Dilan gregory lab add on to specimen collected yesterdayIMMUNOPHENOTYPING DIAGNOSISPATIENT NAME: GEORGE SLATER: 1970MRN: [id number]#: [id number] BY: Yossi Perla M.D,, Ph.D. [id number] TYPE: Bronchial Alveolar LavageLABORATORY INTERPRETATION:There is no [...] performance characteristicsdetermined The Flow Cytometry Laboratory at [facility]. It has notbeen cleared or approved by the FDA. This laboratory is certifiedunder the Clinical Laboratory Improvement Amendments (CLIA)as qualified to perform high complexity clinical laboratorytesting. This test is used for clinical purposes. It should notbe regarded as investigational or for research.The [facility] Flow Cytometry Laboratory lower limitof CLL MRD detection is 0.1% of the gated lymphocytes. Performed By: #### G IPP ####[facility] ([facility])[address] [place] [address] Flow Interpreted by: Yossi Perla MD, PhD Normal [facility] Comment on above: Order Comment: Pleas e lab add on to specimen collected yesterdayIMMUNOPHENOTYPING DIAGNOSISPATIENT NAME: GEORGE SLATER: 1970MRN: [id number]#: [id number] BY: Yossi Perla M.D,, Ph.D. [id number] TYPE: Bronchial Alveolar LavageLABORATORY INTERPRETATION:There is no [...] performance characteristicsdetermined The Flow Cytometry Laboratory at [facility]. It has notbeen cleared or approved by the FDA. This laboratory is certifiedunder the Clinical Laboratory Improvement Amendments (CLIA)as qualified to perform high complexity clinical laboratorytesting. This test is used for clinical purposes. It should notbe regarded as investigational or for research.The [facility] Flow Cytometry Laboratory lower limitof CLL MRD detection is 0.1% of the gated lymphocytes. Performed By: #### G IPP ####[facility] (DEFAULT)[address] [place] [address] MAGNESIUMon 09-03-2023 Magnesium [Mass/Vol] 1.6 mg/dL Normal 1.6-2.6 [facility] Comment on above: Performed By: #### M GO, CHM7, [facility] ####[facility] (DEFAULT)[address] [place] [address] Interpretation and review of laboratory results Normal [facility] Magnesium [Mass/Vol] 1.6 mg/dL 1.6 - 2 .6 mg/dL [facility] No Panel Informationon 09-03 Interpretation and review of laboratory results Abnormal [facility] PARVOVIRUS (B19) DNA, PCR, B LOODon 09-03-2023 PARVOVIRUS B19 BY RAPID PCR Not detected Not Detected [facility] [place] SPEC SOURCE Whole Blood [facility] Portable XR Chest Viewson RADIOLOGY RADIOLOGY [facility] Radiology Study observation (narrative) [facility] Portable XR Chest ViewsOrder ed By: [place] on 09-03-2023 [facility] Work Phone: XR CHEST PORTABLEon 09-03-20 23 XR CHEST PORTABLE Normal [facility] ACID FAST CULTUREon 09-02-20 23 Bacteria identified Cx Nom (Unsp spec) NO GROWTH DAY 42 OF 42 Normal [facility] Comment on above: Performed By: #### A FB ####[facility] (DEFAULT)[address] [place] [facility] [place] [address] Fluorochrome Stain No acid Fast Bacillus Seen Normal [facility] Comment on above: Performed By: #### A FB ####[facility] (DEFAULT)[address] [facility] [place] [address] Bacteria identified Cx Nom (Unsp spec) NO GROWTH DAY 42 OF 42 Normal [facility] Comment on above: Order Comment: BAL A FB culture. Clinical suspicion for non-tuberculous mycobacteria Performed By: #### A FB ####[facility] (DEFAULT)[address] [place] [facility] [place] [address] Fluorochrome Stain No acid Fast Bacillus Seen Normal [facility] Comment on above: Order Comment: BAL A FB culture. Clinical suspicion for non-tuberculous mycobacteria Performed By: #### A FB ####[facility] (DEFAULT)[address] [place] [address] ASPERGILLUS (GALACTOMANNAN), ANTIGENon 09-02-2023 Galactomannan Ag IA Qn <0.500 NINF [facility] ASPERGILLUS ANTIGEN, BALon 1 Aspergillus Galactomannan Antigen, BAL <0.500 Normal <0.5 [facility] Comment on above: Result Comment: ---- ADDITIONAL INFORMATION This is a qualitative test and the resulted index value isnot indicative of disease severity. Serial testing isrecommended for patients at high risk for invasiveaspergillosis.This assay was performed using the FDA-cleared [employer] Aspergillus Galactomannan EIA.Test Performed by:[address] Director: Rosendo Bose M.D. Ph.D.; CLIA# [id number] Performed By: #### X ASGFL ####[facility] (DEFAULT)[address] [place] [address] Aspergillus Galactomannan Antigen, BAL <0.500 Normal <0.5 [facility] Comment on above: Order Comment: BAL a spirgillus antigen Result Comment: ---- ADDITIONAL INFORMATION This is a qualitative test and the resulted index value isnot indicative of disease severity. Serial testing isrecommended for patients at high risk for invasiveaspergillosis.This assay was performed using the FDA-cleared [employer] Aspergillus Galactomannan EIA.Test Performed by:[address] Director: Rosendo Bose M.D. Ph.D.; CLIA# [id number] Performed By: #### X ASGFL ####[facility] (DEFAULT)[address] [place] [address] ATYPICAL BACTERIAL PNEUMONIA ,PCROrdered By: Shari Contreras on 09-02-2023 B. parapertussis DNA ESTELITA+probe Ql (Unsp spec) Not detected Not Detected [facility] B. pertussis DNA ESTELITA+probe Ql (Unsp spec) Not detected Not Detected [facility] C. pneumoniae DNA ESTELITA+probe Ql (Unsp spec) Not detected Not Detected [facility] Interpretation and review of laboratory results Normal [facility] M. pneumoniae DNA ESTELITA+probe Ql (Unsp spec) Not detected Not Detected [facility] ATYPICAL BACTERIAL PNEUMONIA ,PCRon 09-02-2023 Bordetella Parapertussis Not detected Normal Not Detected [facility] Comment on above: Order Comment: Viral transport [...] by The Clinical Microbiology Laboratory at The [facility]. It has not been cleared or approved by the FDA. The laboratory is required under CLIA as qualified to perform high-complexity testing. This test is used for clinical purposes. It should not be regarded as investigational or for research. Performed By: #### A TYPNE ####[facility] (DEFAULT)[address] [place] [address] Bordetella Pertussis Not detected Normal Not Detected [facility] Comment on above: Order Comment: Viral transport [...] by The Clinical Microbiology Laboratory at The [facility]. It has not been cleared or approved by the FDA. The laboratory is required under CLIA as qualified to perform high-complexity testing. This test is used for clinical purposes. It should not be regarded as investigational or for research. Performed By: #### A TYPNE ####[facility] (DEFAULT)[address] [address] Chlamydia Pneumoniae Not detected Normal Not Detected [facility] Comment on above: Order Comment: Viral transport [...] by The Clinical Microbiology Laboratory at The [facility]. It has not been cleared or approved by the FDA. The laboratory is required under CLIA as qualified to perform high-complexity testing. This test is used for clinical purposes. It should not be regarded as investigational or for research. Performed By: #### A TYPNE ####[facility] (DEFAULT)[address] [address] Mycoplasma Pneumoniae Not detected Normal Not Detected [facility] Comment on above: Order Comment: Viral transport [...] by The Clinical Microbiology Laboratory at The [facility]. It has not been cleared or approved by the FDA. The laboratory is required under CLIA as qualified to perform high-complexity testing. This test is used for clinical purposes. It should not be regarded as investigational or for research. Performed By: #### A TYPNE ####[facility] (DEFAULT)[address] [place] [address] BAL CONSULTon 09-02-2023 ALVEOLAR MACROPHAGES 33 % Normal [facility] Comment on above: Order Comment: BAL c onsultIf > 15% lymphocytes - please send for flow. Performed By: #### B ALC ####[facility] (DEFAULT)[address] [place] [address], [place] [address] Bal comments Correlation with microbiology stains and cultures is recommended. Correlation with viral studies is recommended. Normal [facility] Comment on above: Order Comment: BAL c onsultIf > 15% lymphocytes - please send for flow. Performed By: #### B ALC ####[facility] (DEFAULT)[address] [place] [address], [place] [address] Bal Diff Quik Stain Quality Check Acceptable Normal [facility] Comment on above: Order Comment: BAL c onsultIf > 15% lymphocytes - please send for flow. Performed By: #### B ALC ####[facility] (DEFAULT)[address] [place] [address], [place] [address] Bal Reviewed By: Leonardo Peralta MD [facility] Comment on above: Order Comment: BAL c onsultIf > 15% lymphocytes - please send for flow. Performed By: #### B ALC ####[facility] (DEFAULT)[address] [place] [address] BKR BAL INTERPRETATION Cellular specimen comprised of alveolar macrophages and small lymphocytes. No definitive microorganisms are observed. Rare degenerating cells with changes suggestive of viral cytopathic effect are noted. Moderate degenerative changes. Normal [facility] Comment on above: Order Comment: BAL c onsultIf > 15% lymphocytes - please send for flow. Performed By: #### B ALC ####[facility] (DEFAULT)[address] [place] [address], [place] [address] BKR DX CODE Use Ordering Normal [facility] Comment on above: Order Comment: BAL c onsultIf > 15% lymphocytes - please send for flow. Performed By: #### B ALC ####[facility] (DEFAULT)[address] [place] [address] Eosinophils/100 WBC (Bld) 0 % Normal [facility] Comment on above: Order Comment: BAL c onsultIf > 15% lymphocytes - please send for flow. Performed By: #### B ALC ####[facility] (DEFAULT)[address] [facility] [place] [address] Lymphocytes/100 WBC (Bld) 49 % Normal [facility] Comment on above: Order Comment: BAL c onsultIf > 15% lymphocytes - please send for flow. Performed By: #### B ALC ####[facility] (DEFAULT)[address] [facility] [place] [address] Neutrophils/100 WBC (Bld) 18 % Normal [facility] Comment on above: Order Comment: BAL c onsultIf > 15% lymphocytes - please send for flow. Performed By: #### B ALC ####[facility] (DEFAULT)[address] [facility] [place] [address] ALVEOLAR MACROPHAGES 32 % Normal [facility] Comment on above: Order Comment: BAL c onsult for cell differential and pathologist review. Please do flow cytometry if > 12% lymphocytes Performed By: #### B ALC ####[facility] (DEFAULT)[address] [facility] [place] [address] Bal comments Correlation with microbiology stains and cultures is recommended. Normal [facility] Comment on above: Order Comment: BAL c onsult for cell differential and pathologist review. Please do flow cytometry if > 12% lymphocytes Performed By: #### B ALC ####[facility] (DEFAULT)[address] [place] [facility] [place] [address] Bal Diff Quik Stain Quality Check Acceptable Normal [facility] Comment on above: Order Comment: BAL c onsult for cell differential and pathologist review. Please do flow cytometry if > 12% lymphocytes Performed By: #### B ALC ####[facility] (DEFAULT)[address] [place] [facility] [address] Bal Reviewed By: Leonardo Peralta MD [facility] Comment on above: Order Comment: BAL c onsult for cell differential and pathologist review. Please do flow cytometry if > 12% lymphocytes Performed By: #### B ALC ####[facility] (DEFAULT)[address] [place] [address] BKR BAL INTERPRETATION Cellular specimen comprised of alveolar macrophages and small lymphocytes. No definitive microorganisms are observed. Moderate degenerative changes. Normal [facility] Comment on above: Order Comment: BAL c onsult for cell differential and pathologist review. Please do flow cytometry if > 12% lymphocytes Performed By: #### B ALC ####[facility] (DEFAULT)[address] [facility] [place] [address] BKR DX CODE Use Ordering Normal [facility] Comment on above: Order Comment: BAL c onsult for cell differential and pathologist review. Please do flow cytometry if > 12% lymphocytes Performed By: #### B ALC ####[facility] (DEFAULT)[address] [place] [address] Eosinophils/100 WBC (Bld) 0 % Normal [facility] Comment on above: Order Comment: BAL c onsult for cell differential and pathologist review. Please do flow cytometry if > 12% lymphocytes Performed By: #### B ALC ####[facility] (DEFAULT)[address] [place] [address] Lymphocytes/100 WBC (Bld) 57 % Normal [facility] Comment on above: Order Comment: BAL c onsult for cell differential and pathologist review. Please do flow cytometry if > 12% lymphocytes Performed By: #### B ALC ####[facility] (DEFAULT)[address] [place] [address] Neutrophils/100 WBC (Bld) 11 % Normal [facility] Comment on above: Order Comment: BAL c onsult for cell differential and pathologist review. Please do flow cytometry if > 12% lymphocytes Performed By: #### B ALC ####[facility] (DEFAULT)[address] [place] [address] BRONCHOSCOPYon 09-02-2023 Radiology Study observation (narrative) [facility] Bacteria identified Cx Nom ( Bld)on 09-02-2023 Bacteria identified Cx Nom (Unsp spec) NO GROWTH DAY 5 OF 5 [facility] CBC,PLATELETSon 09-02-2023 Hematocrit (Bld) [Volume fraction] 39.9 % Normal 39.6-48.8 [facility] Comment on above: Performed By: #### H EMOGC ####[facility] (DEFAULT)[address] [place] [address] Hemoglobin (Bld) [Mass/Vol] 12.9 g/dL Low 13.4-16.8 [facility] Comment on above: Performed By: #### H EMOGC ####[facility] (DEFAULT)[address] [facility] [place] [address] MCV (RBC) [Entitic vol] 86.4 fL Normal 79.0-94.5 [facility] Comment on above: Performed By: #### H EMOGC ####[facility] (DEFAULT)[address] [facility] [place] [address] Mean Cell Hgb 27.9 pg Normal 26.1-33.3 [facility] Comment on above: Performed By: #### H EMOGC ####[facility] (DEFAULT)[address] [facility] [place] [address] Mean Cell Hgb Conc 32.3 g/dL Normal 31.9-36.5 [facility] Comment on above: Performed By: #### H EMOGC ####[facility] (DEFAULT)[address] [facility] [place] [address] Platelet mean volume (Bld) [Entitic vol] 9.5 fL Normal 8.7-12.3 [facility] Comment on above: Performed By: #### H EMOGC ####[facility] (DEFAULT)[address] [facility] [place] [address] Platelets (Bld) [#/Vol] 210 10*3/uL Normal 146-337 [facility] Comment on above: Performed By: #### H EMOGC ####[facility] (DEFAULT)[address] [facility] [place] [address] RBC (Bld) [#/Vol] 4.62 10*6/uL Normal 4.38-5.83 [facility] Comment on above: Performed By: #### [facility] ####[facility] (DEFAULT)[address] [place] [place] [address] RBC Distribution 13.2 % Normal 10.9-14.3 [facility] Comment on above: Performed By: #### [facility] ####[facility] (DEFAULT)[address] [place] [place] [address] WBC (Bld) [#/Vol] 4.12 10*3/uL Normal 3.73-10.10 [facility] Comment on above: Performed By: #### H [facility] ####[facility] (DEFAULT)[address] [place] [address] Erythrocyte distribution width (RBC) [Ratio] 13.2 % 10.9 - 14.3 % [facility] Hematocrit (Bld) [Volume fraction] 39.9 % 39.6 - 48.8 % [facility] Hemoglobin (Bld) [Mass/Vol] 12.9 g/dL Low 13.4 - 16.8 g/dL [facility] Interpretation and review of laboratory results Abnormal [facility] MCH (RBC) [Entitic mass] 27.9 pg 26.1 - 33.3 pg [facility] MCHC (RBC) [Mass/Vol] 32.3 g/dL 31.9 - 36.5 g/dL [facility] MCV (RBC) [Entitic vol] 86.4 fL 79.0 - 94.5 fL [facility] Platelet mean volume (Bld) [Entitic vol] 9.5 fL 8.7 - 12.3 fL [facility] Platelets (Bld) [#/Vol] 210 10*3/uL 146 - 337 K/uL [facility] RBC (Bld) [#/Vol] 4.62 10*6/uL [facility] WBC (Bld) [#/Vol] 4.12 10*3/uL 3.73 - 10. 10 K/uL [facility] CHEM 7 (LYTES,BUN,CREA,GLUC) on 09-02-2023 Anion gap [Moles/Vol] 13 mmol/L Normal 7-17 [facility] Comment on above: Performed By: #### H ANTWAN MGO CHM7 ####[facility] (DEFAULT)[address] [place] [address] Chloride [Moles/Vol] 105 mmol/L Normal 98-108 [facility] Comment on above: Performed By: #### H ANTWAN MGO CHM7 ####[facility] (DEFAULT)[address] [place] [address] CO2 [Moles/Vol] 22 mmol/L Normal 21-31 [facility] Comment on above: Performed By: #### H FP MGOHELENM7 ####[facility] (DEFAULT)[address] [place] [address] Creatinine [Mass/Vol] 1.25 mg/dL Normal 0.70-1.30 [facility] Comment on above: Performed By: #### H FP MGO CHM7 ####[facility] (DEFAULT)[address] [place] [address] GFR/1.73 sq M.predicted among non-blacks MDRD (S/P/Bld) [Vol rate/Area] 69 mL/min/{1.73_m2} Normal >=60 [facility] Comment on above: Result Comment: Repo rted eGFR is based on the CKD-EPI 2020 equation using creatinine, age, and sex. Performed By: #### H FP MGO, CHM7 ####[facility] (DEFAULT)[address] [facility] [place] [address] Glucose [Mass/Vol] 105 mg/dL High 70-99 [facility] Comment on above: Performed By: #### H FP MGO, CHM7 ####[facility] (DEFAULT)[address] [place] [address] Osmolality [Osmolality] 287 mosm/kg Normal 278-305 [facility] Comment on above: Performed By: #### H ANTWAN MGO CHM7 ####[facility] (DEFAULT)[address] [place] [address] Potassium [Moles/Vol] 4.3 mmol/L Normal 3.5-5.0 [facility] Comment on above: Performed By: #### H ANTWAN MGRogelio CHM7 ####[facility] (DEFAULT)[address] [place] [address] Sodium [Moles/Vol] 136 mmol/L Normal 135-145 [facility] Comment on above: Performed By: #### DOMENICA MCKINNON CHM7 ####[facility] (DEFAULT)[address] [place] [address] Urea nitrogen [Mass/Vol] 16 mg/dL Normal 7-25 [facility] Comment on above: Performed By: #### Lydia MONCADA MGRogelio CHM7 ####[facility] (DEFAULT)[address] [place] [address] Urea nitrogen/Creatinine [Mass ratio] 13 mg/mg Normal [facility] Comment on above: Performed By: #### Lydia MONCADA MGO CHM7 ####[facility] (DEFAULT)[address] [place] [address] Anion gap [Moles/Vol] 13 mmol/L 7 - 17 mmol/L [facility] Chloride [Moles/Vol] 105 mmol/L 98 - 10 8 mmol/L [facility] CO2 [Moles/Vol] 22 mmol/L 21 - 31 mmol/L [facility] Creatinine [Mass/Vol] 1.25 mg/dL 0.70 - 1.30 mg/dL [facility] eGFR, CKD-EPI, Male 69 - [facility] Glucose [Mass/Vol] 105 mg/dL High 70 - 99 mg/dL [facility] Osmolality Calc [Osmolality] [address] [facility] Potassium [Moles/Vol] 4.3 mmol/L 3.5 - 5.0 mmol/L [facility] Sodium [Moles/Vol] 136 mmol/L 135 - 145 mmol/L [facility] Urea nitrogen [Mass/Vol] 16 mg/dL 7 - 25 mg/dL [facility] Urea nitrogen/Creatinine [Mass ratio] 13 mg/mg [facility] CMV PCR,FLUIDS,URINE,EYE ETC on 09-02-2023 CMV by PCR Result Negative Normal Negative [facility] Comment on above: Result Comment: ---- ADDITIONAL INFORMATION This test was developed and its performance characteristicsdetermined by [facility] in a manner consistent with [employer]. This test has not been cleared or approved by[facility] U.S. Food and Drug Administration.Test Performed by:[address] Director: Rosendo Bose M.D. Ph.D.; CLIA# [id number] Performed By: #### Y CMV ####[facility] (DEFAULT)[address] [place] [address] CMV BY PCR SOURCE BAL RML Normal [facility] Comment on above: Performed By: #### Y CMV ####[facility] (DEFAULT)[address] [place] [address] CMV by PCR Result Negative Normal Negative [facility] Comment on above: Result Comment: ---- ADDITIONAL INFORMATION This test was developed and its performance characteristicsdetermined by [facility] in a manner consistent with [facility]. This test has not been cleared or approved bythe U.S. Food and Drug Administration.Test Performed by:[address], [place], [place] [address]Eam Director: Rosendo Bose M.D. Ph.D.; CLIA# [id number] Performed By: #### Y CMV ####[facility] (DEFAULT)[address] [place] [address] CMV BY PCR SOURCE BAL LLL Normal [facility] Comment on above: Performed By: #### Y CMV ####[facility] (DEFAULT)[address] [place] [address] CYTOLOGY, NON-GYNon 09-02-20 CYTOLOGIC DIAGNOSIS [facility] Comment on above: Result Comment: A. B RONCHOALVEOLAR LAVAGE, LEFT LOWER LOBE (CYTOLOGY):FINAL DIAGNOSIS:No Malignant Cells Are IdentifiedHypocellular Specimen Performed By: #### N ONGNGRAEMEFNA ####[facility] (DEFAULT)[address] [place] [address] Case Report [facility] Comment on above: Result Comment: Medi abhishek Cytology Report Case: [id number] Provider: Crow Diaz MD Collected: 09/02/2023 08:38 AMOrdering [facility] Received: 09/02/2023 10:44 AMPathologist: KENTON Caglepecimen: BRONCHOALVEOLAR LAVAGE, LLL BAL Performed By: #### N ONGNNONFNA ####[facility] (DEFAULT)[address] [place] [address] Clinical History Renal transplant. Normal [facility] Comment on above: Performed By: #### N ONGNNONFNA ####[facility] (DEFAULT)[address] [place] [address] Gross Description Normal [facility] Comment on above: Result Comment: LLL BAL1 ml hazy colorless fld unfixed1 TP slide Pap stainFor Immediate Release to Patient's MyChart? Yes Performed By: #### N ONGNNONFNA ####[facility] (DEFAULT)[address] [place] [address] FUNGUS CULTUREon 09-02-2023 Bacteria identified Cx Nom (Unsp spec) Normal [facility] Comment on above: Order Comment: Ident ification was performed on the MALDI-TOF mass spectrometer [employer]. This test was developed by [facility] at [facility]. It has not been cleared or approved by the FDA. The laboratory is regulated under CLIA as qualified to perform high-complexity testing. This test is used for clinical purposes. It should not be regarded as investigational or for research. Result Comment: Grow [id number] Spring Histoplasma capsulatum Performed By: #### F UN ####[facility] (DEFAULT)[address] [place] [address] Bacteria identified Cx Nom (Unsp spec) NO GROWTH DAY 28 OF 28 Normal [facility] Comment on above: Order Comment: BAL f ungal culture Performed By: #### F UN ####[facility] (DEFAULT)[address] [place] [address] HEPATIC FUNCTION PANELon Albumin [Mass/Vol] 3.2 g/dL Low 3.5-5.0 [facility] Comment on above: Performed By: #### H FP MGRogelio, CHM7 ####[facility] (DEFAULT)[address] [place] [address] ALP [Catalytic activity/Vol] 107 U/L Normal 32-126 [facility] Comment on above: Performed By: #### H FP, MGO, CHM7 ####[facility] (DEFAULT)[address] [place] [address] ALT [Catalytic activity/Vol] 20 U/L Normal 10-52 [facility] Comment on above: Performed By: #### H FP, MGRogelio CHM7 ####[facility] (DEFAULT)[address] [place] [address] AST [Catalytic activity/Vol] 31 U/L Normal 10-39 [facility] Comment on above: Performed By: #### H ANTWAN MGO CHM7 ####[facility] (DEFAULT)[address] [place] [address] Bilirubin [Mass/Vol] 1.0 mg/dL Normal <1.5 [facility] Comment on above: Performed By: #### H ANTWAN MGHELEN MercadoM7 ####[facility] (DEFAULT)[address] [place] [address] Bilirubin.indirect [Mass/Vol] 0.3 mg/dL High <0.3 [facility] Comment on above: Performed By: #### H ANTWAN MGHELEN MercadoM7 ####[facility] (DEFAULT)[address] [place] [address] Protein [Mass/Vol] 6.6 g/dL Normal 6.4-8.3 [facility] Comment on above: Performed By: #### H ANTWAN MGRogelio CHM7 ####[facility] (DEFAULT)[address] [place] [address] Albumin [Mass/Vol] 3.2 g/dL Low 3.5 - 5.0 g/dL [facility] ALP [Catalytic activity/Vol] 107 U/L 32 - 126 U/L [facility] ALT [Catalytic activity/Vol] 20 U/L 10 - 52 U/L [facility] AST [Catalytic activity/Vol] 31 U/L 10 - 39 U/L [facility] Bilirubin [Mass/Vol] 1.0 mg/dL NINF - 1.5 mg/dL [facility] Bilirubin.direct [Mass/Vol] 0.3 mg/dL High NINF - 0.3 mg/dL [facility] Protein [Mass/Vol] 6.6 g/dL 6.4 - 8.3 g/dL [facility] HISTOPLASMA ANTIGEN, FLUIDon 09-02-2023 FH SOURCE BAL RML Normal [facility] Comment on above: Performed By: #### Y FHST ####[facility] (DEFAULT)[address] [place] [address] Histo FLD interpretation Negative Normal [facility] Comment on above: Result Comment: ---- ADDITIONAL INFORMATION Reference interval: None DetectedReportable Range: Positive Results reported in ng/mL from0.20 ng/mL to 20.00 ng/mLPositive Results above 20.00 ng/mL are reported as 'Abovethe Limit of Quantification'Cross-reactions occur with Blastomyces spp., Coccidioidesspp., and Paracoccidioides brasiliensis.This test was developed and its performance characteristicsdetermined by [employer]. It has not beencleared or approved by the FDA; however, FDA clearance orapproval is not currently required for clinical use. Theresults are not intended to be used as the sole means forclinical diagnosis or patient management decisions.Test Performed by:[facility] [place] [address] [place] [address] Performed By: #### Y FHST ####[facility] (DEFAULT)[address] [place] [address] Histoplasma Antigen, FLUID Not detected Normal [facility] Comment on above: Performed By: #### Y FHST ####[facility] (DEFAULT)[address] [place] [address] HISTOPLASMA ANTIGEN,URINEon 09-02-2023 H. capsulatum Ag (U) [Mass/Vol] Not detected ng/mL [facility] H. capsulatum Ag IA Ql (U) Not detected Not Detected [facility] HISTOPLASMA CAPSULATUM/BLAST OMYCES SPECIES,PCR FLUIDon 10-04-2023 HISTO/BLASTO RESULT Negative Normal Not Applicable [facility] Comment on above: Result Comment: A Ne gative result from BAL fluid does not rule out thepresence of Histoplasma capsulatum because the sensitivity from this source is suboptimal. ADDITIONAL INFORMATION This test was developed and its performance characteristicsdetermined by [facility] in a manner consistent with CLIArequirements. This test has not been cleared or approved bythe U.S. Food and Drug Administration.Test Performed by:[address] Director: Rosendo Bose M.D. Ph.D.; CLIA# [id number] Performed By: #### Y HBRP ####[facility] (DEFAULT)[address] [place] [address] Source BAL RML Normal [facility] Comment on above: Performed By: #### Y HBRP ####[facility] (DEFAULT)[address] [place] [address] HIV 1 AND 2 ANTIBODIES/P24 A NTIGENOrdered By: Wilma Luque on 09-02-2023 HIV 1+2 Ab+HIV1 p24 Ag IA Ql Non-Reactive Non Reactive [facility] Interpretation and review of laboratory results Normal [facility] HIV 1 AND 2 ANTIBODIES/P24 A NTIGENon 09-02-2023 HIV-1/HIV-2 Ab With p24 Antigen Non-Reactive Normal Non Reactive [facility] Comment on above: Performed By: #### L [id number] ####[facility] (DEFAULT)[address] [place] [address] LEGIONELLA CULTUREon 023 Bacteria identified Cx Nom (Unsp spec) NO GROWTH DAY 7 OF 7 Normal [facility] Comment on above: Performed By: #### L EGN ####[facility] (DEFAULT)[address] [place] [address] Bacteria identified Cx Nom (Unsp spec) NO GROWTH DAY 7 OF 7 Normal [facility] Comment on above: Order Comment: BAL l egionella culture Performed By: #### L EGN ####[facility] (DEFAULT)[address] [place] [address] LEGIONELLA PCRon 09-02-2023 Legionella species, Culture BAL RML Normal [facility] Comment on above: Performed By: #### Y LEGRP ####[facility] (DEFAULT)[address] [facility] [place] [address] Legionella, pcr result Negative Normal Not Applicable [facility] Comment on above: Result Comment: ---- ADDITIONAL INFORMATION This test was developed and its performance characteristicsdetermined by [facility] in a manner consistent with CLIArequirements. This test has not been cleared or approved bythe U.S. Food and Drug Administration.Test Performed by:[address] Director: Rosendo Bose M.D. Ph.D.; CLIA# [id number] Performed By: #### Y LEGRP ####[facility] (DEFAULT)[address] [facility] [place] [address] LOWER RESPIRATORY CULTURE, B ACTERIALon 09-02-2023 Bacteria identified Cx Nom (Unsp spec) NO GROWTH DAY 2 OF 2 Normal [facility] Comment on above: Performed By: #### R ES ####[facility] (DEFAULT)[address] [facility] [place] [address] Microscopic observation Gram stain Nom (Unsp spec) Normal [facility] Comment on above: Result Comment: Cyto centrifuge preparationNeutrophils, RareRed Blood Cells PresentNo organisms seen Performed By: #### R ES ####[facility] (DEFAULT)[address] [facility] [place] [address] Bacteria identified Cx Nom (Unsp spec) NO GROWTH DAY 2 OF 2 Normal [facility] Comment on above: Order Comment: BAL b acterial respiratory culture Performed By: #### R ES ####[facility] (DEFAULT)[address] [place] [address] Microscopic observation Gram stain Nom (Unsp spec) Normal [facility] Comment on above: Order Comment: BAL b acterial respiratory culture Result Comment: Cyto centrifuge preparationNeutrophils, ModerateRed Blood Cells PresentNo organisms seen Performed By: #### R ES ####[facility] (DEFAULT)[address] [place] [address] MAGNESIUMon 09-02-2023 Magnesium [Mass/Vol] 1.7 mg/dL Normal 1.6-2.6 [facility] Comment on above: Performed By: #### H FP, MGO, CHM7 ####[facility] (DEFAULT)[address] [place] [address] Interpretation and review of laboratory results Normal [facility] Magnesium [Mass/Vol] 1.7 mg/dL 1.6 - 2 .6 mg/dL [facility] No Panel Informationon 09-02 Interpretation and review of laboratory results Abnormal [facility] PNEUMOCYSTIS JIROVECI,PCRon 09-02-2023 PN Report Status DNR Normal [facility] Comment on above: Performed By: #### Y PNRP ####[facility] (DEFAULT)[address] [place] [address] PN Specimen Source BAL RML Normal [facility] Comment on above: Performed By: #### Y PNRP ####[facility] (DEFAULT)[address] [place] [address] Pneum jiroveci comment DNR Normal [facility] Comment on above: Performed By: #### Y PNRP ####[facility] (DEFAULT)[address] [place] [address] Pneumocystis jiroveci,PCR result Negative Normal Not Applicable [facility] Comment on above: Result Comment: ---- ADDITIONAL INFORMATION This test was developed and its performance characteristicsdetermined by [facility] in a manner consistent with CLIArequirements. This test has not been cleared or approved bythe U.S. Food and Drug Administration.Test Performed by:[facility] [place], [place] [address]Lsz Director: Rosendo Bose M.D. Ph.D.; CLIA# [id number] Performed By: #### Y PNRP ####[facility] (DEFAULT)[address] [place] [address] PN Report Status DNR Normal [facility] Comment on above: Performed By: #### Y PNRP ####[facility] (DEFAULT)[address] [place] [address] PN Specimen Source BAL LLL Normal [facility] Comment on above: Performed By: #### Y PNRP ####[facility] (DEFAULT)[address] [place] [address] Pneum jiroveci comment DNR Normal [facility] Comment on above: Performed By: #### Y PNRP ####[facility] (DEFAULT)[address] [place] [address] Pneumocystis jiroveci,PCR result Negative Normal Not Applicable [facility] Comment on above: Result Comment: ---- ADDITIONAL INFORMATION This test was developed and its performance characteristicsdetermined by [facility] in a manner consistent with CLIArequirements. This test has not been cleared or approved bythe U.S. Food and Drug Administration.Test Performed by:[address] [address]Oxn Director: Rosendo Bose M.D. Ph.D.; CLIA# [id number] Performed By: #### Y PN ####[facility] (DEFAULT)[address] [place] [address] TACROLIMUS LEVEL, TROUGH ([place] E DRUG LEVEL)on 09-02-2023 Interpretation and review of laboratory results Normal [facility] Tacrolimus (Bld) [Mass/Vol] 4.2 ng/mL [facility] Tacrolimus, Trough 4.2 ng/mL Normal [facility] Susana ow Transplant: 4.0-12.0, Therapeutic: 5.0-15.0 [facility] Comment on above: Order Comment: Pleas e draw at specified interval PRIOR to dose. Do not hold dose to wait for level. Specimens batched twice per day, (M-) and once per day weekendsMethod performed is a chemiluminescent microparticle immunoasssay on the [employer] Dyer i2000.The range is based on experience at [facility] and users should be aware that target concentrations vary widely depending on concomitant therapy, time post-transplant, and desired degree of immunosuppression. Performed By: #### T ACRO ####[facility] (DEFAULT)[address] [place] [address] CBC,PLATELETSon 09-01-2023 Hematocrit (Bld) [Volume fraction] 38.9 % Low 39.6-48.8 [facility] Comment on above: Performed By: #### H [facility] ####[facility] (DEFAULT)[address] [place] [address] Hemoglobin (Bld) [Mass/Vol] 12.7 g/dL Low 13.4-16.8 [facility] Comment on above: Performed By: #### H EMO ####[facility] (DEFAULT)[address] [place] [address] MCV (RBC) [Entitic vol] 84.6 fL Normal 79.0-94.5 [facility] Comment on above: Performed By: #### H EMOGC ####[facility] (DEFAULT)[address] [place] [address] Mean Cell Hgb 27.6 pg Normal 26.1-33.3 [facility] Comment on above: Performed By: #### H EMOGC ####[facility] (DEFAULT)[address] [place] [address] Mean Cell Hgb Conc 32.6 g/dL Normal 31.9-36.5 [facility] Comment on above: Performed By: #### H EMOGC ####[facility] (DEFAULT)[address] [facility] [place] [address] Platelet mean volume (Bld) [Entitic vol] 9.4 fL Normal 8.7-12.3 [facility] Comment on above: Performed By: #### H EMOGC ####[facility] (DEFAULT)[address] [place] [address] Platelets (Bld) [#/Vol] 209 10*3/uL Normal 146-337 [facility] Comment on above: Performed By: #### H EMOGC ####[facility] (DEFAULT)[address] [place] [address] RBC (Bld) [#/Vol] 4.60 10*6/uL Normal 4.38-5.83 [facility] Comment on above: Performed By: #### H EMOGC ####[facility] (DEFAULT)[address] [place] [address] RBC Distribution 13.4 % Normal 10.9-14.3 [facility] Comment on above: Performed By: #### H EMOGC ####[facility] (DEFAULT)[address] [place] [address] WBC (Bld) [#/Vol] 4.41 10*3/uL Normal 3.73-10.10 [facility] Comment on above: Performed By: #### H EMOGC ####[facility] (DEFAULT)[address] [place] [address] Erythrocyte distribution width (RBC) [Ratio] 13.4 % 10.9 - 14.3 % [facility] Hematocrit (Bld) [Volume fraction] 38.9 % Low 39.6 - 48.8 % [facility] Hemoglobin (Bld) [Mass/Vol] 12.7 g/dL Low 13.4 - 16.8 g/dL [facility] Interpretation and review of laboratory results Abnormal [facility] MCH (RBC) [Entitic mass] 27.6 pg 26.1 - 33.3 pg [facility] MCHC (RBC) [Mass/Vol] 32.6 g/dL 31.9 - 36.5 g/dL [facility] MCV (RBC) [Entitic vol] 84.6 fL 79.0 - 94.5 fL [facility] Platelet mean volume (Bld) [Entitic vol] 9.4 fL 8.7 - 12.3 fL [facility] Platelets (Bld) [#/Vol] 209 10*3/uL 146 - 337 K/uL [facility] RBC (Bld) [#/Vol] 4.60 10*6/uL [facility] WBC (Bld) [#/Vol] 4.41 10*3/uL 3.73 - 10. 10 K/uL [facility] CHEM 7 (LYTES,BUN,CREA,GLUC) on 09-01-2023 Anion gap [Moles/Vol] 14 mmol/L Normal 7-17 [facility] Comment on above: Performed By: #### H DOMENICA MONCADA CHM7 ####[facility] (DEFAULT)[address] [place] [address] Chloride [Moles/Vol] 103 mmol/L Normal 98-108 [facility] Comment on above: Performed By: #### H ANTWAN MGOTJ7 ####[facility] (DEFAULT)[address] [place] [address] CO2 [Moles/Vol] 21 mmol/L Normal 21-31 [facility] Comment on above: Performed By: #### H ANTWAN MGO CHM7 ####[facility] (DEFAULT)[address] [place] [address] Creatinine [Mass/Vol] 1.16 mg/dL Normal 0.70-1.30 [facility] [place] Comment on above: Performed By: #### H ANTWAN MGO CHM7 ####[facility] (DEFAULT)[address] [place] [address] GFR/1.73 sq M.predicted among non-blacks MDRD (S/P/Bld) [Vol rate/Area] 76 mL/min/{1.73_m2} Normal >=60 [facility] Comment on above: Result Comment: Repo rted eGFR is based on the CKD-EPI 2020 equation using creatinine, age, and sex. Performed By: #### H ANTWAN MGO CHM7 ####[facility] (DEFAULT)[address] [facility] [place] [address] Glucose [Mass/Vol] 117 mg/dL High 70-99 [facility] Comment on above: Performed By: #### H FP MGO, CHM7 ####[facility] (DEFAULT)[address] [facility] [place] [address] Osmolality [Osmolality] 285 mosm/kg Normal 278-305 [facility] Comment on above: Performed By: #### H FP MGO, CHM7 ####[facility] (DEFAULT)[address] [facility] [place] [address] Potassium [Moles/Vol] 4.2 mmol/L Normal 3.5-5.0 [facility] Comment on above: Performed By: #### H FP, MGO, CHM7 ####[facility] (DEFAULT)[address] [facility] [place] [address] Sodium [Moles/Vol] 134 mmol/L Low 135-145 [facility] Comment on above: Performed By: #### H DOMENICA MONCADA CHM7 ####[facility] (DEFAULT)[address] [facility] [place] [address] Urea nitrogen [Mass/Vol] 18 mg/dL Normal 7-25 [facility] Comment on above: Performed By: #### H DOMENICA MONCADA CHM7 ####[facility] (DEFAULT)[address] [facility] [place] [address] Urea nitrogen/Creatinine [Mass ratio] 16 mg/mg Normal [facility] Comment on above: Performed By: #### H DOMENICA MONCADA CHM7 ####[facility] (DEFAULT)[address] [place] [place] [address] Anion gap [Moles/Vol] 14 mmol/L 7 - 17 mmol/L [facility] Chloride [Moles/Vol] 103 mmol/L 98 - 10 8 mmol/L [facility] CO2 [Moles/Vol] 21 mmol/L 21 - 31 mmol/L [facility] Creatinine [Mass/Vol] 1.16 mg/dL 0.70 - 1.30 mg/dL [facility] eGFR, CKD-EPI, Male 76 - [facility] Glucose [Mass/Vol] 117 mg/dL High 70 - 99 mg/dL [facility] Osmolality Calc [Osmolality] [address] [facility] Potassium [Moles/Vol] 4.2 mmol/L 3.5 - 5.0 mmol/L [facility] Sodium [Moles/Vol] 134 mmol/L Low 135 - 145 mmol/L [facility] Urea nitrogen [Mass/Vol] 18 mg/dL 7 - 25 mg/dL [facility] Urea nitrogen/Creatinine [Mass ratio] 16 mg/mg [facility] CRYPTOCOCCAL ANTIGENon 09-01 Cryptococcus Antigen,Serum Negative Normal Negative [facility] Comment on above: Performed By: #### C RAG ####[facility] (DEFAULT)[address] [place] [address] Cryptococcus sp Ag Ql (S) Negative Negative [facility] Interpretation and review of laboratory results Normal [facility] HEPATIC FUNCTION PANELon Albumin [Mass/Vol] 3.3 g/dL Low 3.5-5.0 [facility] Comment on above: Performed By: #### H FP, MGO, CHM7 ####[facility] (DEFAULT)[address] [place] [address] ALP [Catalytic activity/Vol] 112 U/L Normal 32-126 [facility] Comment on above: Performed By: #### H FP, MGO, CHM7 ####[facility] (DEFAULT)[address] [place] [address] ALT [Catalytic activity/Vol] 21 U/L Normal 10-52 [facility] Comment on above: Performed By: #### H FP, MGO, CHM7 ####[facility] (DEFAULT)[address] [place] [address] AST [Catalytic activity/Vol] 29 U/L Normal 10-39 [facility] Comment on above: Performed By: #### H FP, MGO, CHM7 ####[facility] (DEFAULT)[address] [place] [address] Bilirubin [Mass/Vol] 1.0 mg/dL Normal <1.5 [facility] Comment on above: Performed By: #### H FP, MGO, CHM7 ####[facility] (DEFAULT)[address] [place] [address] Bilirubin.indirect [Mass/Vol] 0.2 mg/dL Normal <0.3 [facility] Comment on above: Performed By: #### H FP, MGO, CHM7 ####[facility] (DEFAULT)[address] [place] [address] Protein [Mass/Vol] 6.8 g/dL Normal 6.4-8.3 [facility] Comment on above: Performed By: #### H DOMENICA MONCADA CHM7 ####[facility] (DEFAULT)[address] [facility] [place] [place] [address] Albumin [Mass/Vol] 3.3 g/dL Low 3.5 - 5.0 g/dL [facility] ALP [Catalytic activity/Vol] 112 U/L 32 - 126 U/L [facility] ALT [Catalytic activity/Vol] 21 U/L 10 - 52 U/L [facility] AST [Catalytic activity/Vol] 29 U/L 10 - 39 U/L [facility] Bilirubin [Mass/Vol] 1.0 mg/dL NINF - 1.5 mg/dL [facility] Bilirubin.direct [Mass/Vol] 0.2 mg/dL NINF - 0.3 mg/dL [facility] Protein [Mass/Vol] 6.8 g/dL 6.4 - 8.3 g/dL [facility] L. pneumophila 1 Ag IA Ql (U )Ordered By: Carolin Miles on 09-01-2023 Interpretation and review of laboratory results Normal [facility] LEGIONELLA URINARY AGOrdered By: Carolin Miles on 09-01-2023 L. pneumophila 1 Ag IA Ql (U) Negative Negative [facility] MAGNESIUMon 09-01-2023 Magnesium [Mass/Vol] 1.6 mg/dL Normal 1.6-2.6 [facility] Comment on above: Performed By: #### H DOMENICA MONCADA CHM7 ####[facility] (DEFAULT)[address] [place] [address] Interpretation and review of laboratory results Normal [facility] Magnesium [Mass/Vol] 1.6 mg/dL 1.6 - 2 .6 mg/dL [facility] No Panel Informationon 09-01 Interpretation and review of laboratory results Abnormal [facility] PARVOVIRUS (B19) DNA, PCR, B LOODon 09-01-2023 PARVOVIRUS B19 BY RAPID PCR Not detected Normal Not Detected [facility] Comment on above: Result Comment: The primers/probe used in this assay will detectparvovirus B19 and V9 (genotypes 1 # 3) but maynot detect parvovirus genotype 2. The majority ofcirculating Parvovirus B19 strains in the [facility] are genotype 1. Genotype 2 is not believed tocirculate widely in the [facility], but has beenassociated with similar clinical features as genotype1. Genotype 3 is most prevalent in some [place].This test was developed and its analyticalperformance characteristics have been determinedby Laboratory [place], [place].It has not been cleared or approved by the FDA. Thisassay has been validated pursuant to the CLIAregulations and is used for clinical purposes.Test Performed at:[employer] [facility] [place] [id number] Benavides M.D., Ph.D.,Director of Laboratories Performed By: #### Y PRVP ####[facility] (DEFAULT)[address] [place] [address] [place] SPEC SOURCE Whole Blood Normal [facility] Comment on above: Performed By: #### Y PRVP ####[facility] (DEFAULT)[address] [address] ASPERGILLUS (GALACTOMANNAN), ANTIGENon 08-31-2023 Aspergillus Antigen <0.500 Normal <0.5 [facility] Comment on above: Result Comment: ---- ADDITIONAL INFORMATION This is a qualitative test and the resulted index value isnot indicative of disease severity. Serial testing isrecommended for patients at high risk for invasiveaspergillosis.This assay was performed using the FDA-cleared icix-Sound[employer] Aspergillus Galactomannan EIA.Test Performed by:[facility] [place], [place] [address]Eyc Director: Rosendo Bose M.D. Ph.D.; CLIA# [id number] Performed By: #### Y ASPR ####[facility] (DEFAULT)[address] [place] [address] CBC,PLATELETSon 08-31-2023 Hematocrit (Bld) [Volume fraction] 39.4 % Low 39.6-48.8 [facility] Comment on above: Performed By: #### H EMOGC ####[facility] (DEFAULT)[address] [facility] [place] [address] Hemoglobin (Bld) [Mass/Vol] 12.8 g/dL Low 13.4-16.8 [facility] Comment on above: Performed By: #### H EMOGC ####[facility] (DEFAULT)[address] [facility] [place] [address] MCV (RBC) [Entitic vol] 85.1 fL Normal 79.0-94.5 [facility] Comment on above: Performed By: #### H EMOGC ####[facility] (DEFAULT)[address] [facility] [place] [address] Mean Cell Hgb 27.6 pg Normal 26.1-33.3 [facility] Comment on above: Performed By: #### H EMOGC ####[facility] (DEFAULT)[address] [place] [address] Mean Cell Hgb Conc 32.5 g/dL Normal 31.9-36.5 [facility] Comment on above: Performed By: #### H EMOGC ####[facility] (DEFAULT)[address] [facility] [place] [address] Platelet mean volume (Bld) [Entitic vol] 9.6 fL Normal 8.7-12.3 [facility] Comment on above: Performed By: #### H EMOGC ####[facility] (DEFAULT)[address] [place] [address] Platelets (Bld) [#/Vol] 228 10*3/uL Normal 146-337 [facility] Comment on above: Performed By: #### H EMO ####[facility] (DEFAULT)[address] [place] [address] RBC (Bld) [#/Vol] 4.63 10*6/uL Normal 4.38-5.83 [facility] Comment on above: Performed By: #### H EMO ####[facility] (DEFAULT)[address] [place] [address] RBC Distribution 13.3 % Normal 10.9-14.3 [facility] Comment on above: Performed By: #### H EMO ####[facility] (DEFAULT)[address] [place] [address] WBC (Bld) [#/Vol] 4.77 10*3/uL Normal 3.73-10.10 [facility] Comment on above: Performed By: #### H [facility] ####[facility] (DEFAULT)[address] [place] [address] Erythrocyte distribution width (RBC) [Ratio] 13.3 % 10.9 - 14.3 % [facility] Hematocrit (Bld) [Volume fraction] 39.4 % Low 39.6 - 48.8 % [facility] Hemoglobin (Bld) [Mass/Vol] 12.8 g/dL Low 13.4 - 16.8 g/dL [facility] Interpretation and review of laboratory results Abnormal [facility] MCH (RBC) [Entitic mass] 27.6 pg 26.1 - 33.3 pg [facility] MCHC (RBC) [Mass/Vol] 32.5 g/dL 31.9 - 36.5 g/dL [facility] MCV (RBC) [Entitic vol] 85.1 fL 79.0 - 94.5 fL [facility] Platelet mean volume (Bld) [Entitic vol] 9.6 fL 8.7 - 12.3 fL [facility] Platelets (Bld) [#/Vol] 228 10*3/uL 146 - 337 K/uL [facility] RBC (Bld) [#/Vol] 4.63 10*6/uL [facility] WBC (Bld) [#/Vol] 4.77 10*3/uL 3.73 - 10. 10 K/uL [facility] CHEM 7 (LYTES,BUN,CREA,GLUC) on 08-31-2023 Anion gap [Moles/Vol] 13 mmol/L Normal 7-17 [facility] Comment on above: Performed By: #### M GO, HFP, CHM7, FERIB, PROCAL ####[facility] (DEFAULT)[address] [facility] [place] [address] Chloride [Moles/Vol] 102 mmol/L Normal 98-108 [facility] Comment on above: Performed By: #### M GO, HFP, CHM7, FERIB, PROCAL ####[facility] (DEFAULT)[address] [place] [address] CO2 [Moles/Vol] 23 mmol/L Normal 21-31 [facility] Comment on above: Performed By: #### M GO, HFP, CHM7, FERIB, PROCAL ####[facility] (DEFAULT)[address] [place] [address] Creatinine [Mass/Vol] 1.37 mg/dL High 0.70-1.30 [facility] Comment on above: Performed By: #### M GO, HFP, CHM7, FERIB, PROCAL ####[facility] (DEFAULT)[address] [place] [address] GFR/1.73 sq M.predicted among non-blacks MDRD (S/P/Bld) [Vol rate/Area] 62 mL/min/{1.73_m2} Normal >=60 [facility] Comment on above: Result Comment: Repo rted eGFR is based on the CKD-EPI 2020 equation using creatinine, age, and sex. Performed By: #### M TAVO BLOOM, CHM7, FERIB, PROCAL ####[facility] (DEFAULT)[address] [place] [address] Glucose [Mass/Vol] 112 mg/dL High 70-99 [facility] Comment on above: Performed By: #### M MERLE HFP, CHM7, FERIB, PROCAL ####[facility] (DEFAULT)[address] [place] [address] Osmolality [Osmolality] 284 mosm/kg Normal 278-305 [facility] Comment on above: Performed By: #### Rod BLOOM HFP, CHM7, FERIB, PROCAL ####[facility] (DEFAULT)[address] [place] [address] Potassium [Moles/Vol] 4.4 mmol/L Normal 3.5-5.0 [facility] Comment on above: Performed By: #### Rod BLOOM HFP, CHM7, FERIB, PROCAL ####[facility] (DEFAULT)[address] [place] [address] Sodium [Moles/Vol] 134 mmol/L Low 135-145 [facility] Comment on above: Performed By: #### Rod BLOOM HFP, CHM7, FERIB, PROCAL ####[facility] (DEFAULT)[address] [place] [address] Urea nitrogen [Mass/Vol] 16 mg/dL Normal 7-25 [facility] Comment on above: Performed By: #### Rod BLOOM HFP, CHM7, FERIB, PROCAL ####[facility] (DEFAULT)[address] [place] [address] Urea nitrogen/Creatinine [Mass ratio] 12 mg/mg Normal [facility] Comment on above: Performed By: #### Rod BLOOM HFP, CHM7, FERIB, PROCAL ####[facility] (DEFAULT)[address] [place] [address] Anion gap [Moles/Vol] 13 mmol/L 7 - 17 mmol/L [facility] Chloride [Moles/Vol] 102 mmol/L 98 - 10 8 mmol/L [facility] CO2 [Moles/Vol] 23 mmol/L 21 - 31 mmol/L [facility] Creatinine [Mass/Vol] 1.37 mg/dL High 0.70 - 1.30 mg/dL [facility] eGFR, CKD-EPI, Male 62 - [facility]F [facility] Glucose [Mass/Vol] 112 mg/dL High 70 - 99 mg/dL [facility] Osmolality Calc [Osmolality] [address] [facility] Potassium [Moles/Vol] 4.4 mmol/L 3.5 - 5.0 mmol/L [facility] Sodium [Moles/Vol] 134 mmol/L Low 135 - 145 mmol/L [facility] Urea nitrogen [Mass/Vol] 16 mg/dL 7 - 25 mg/dL [facility] Urea nitrogen/Creatinine [Mass ratio] 12 mg/mg [facility] ABDOMEN/PELVIS WITHOUT CO NTRASTon 08-31-2023 CT ABDOMEN/PELVIS WITHOUT CONTRAST Normal [facility] CT Abdomen and Pelvis WO con traston 08-31-2023 RADIOLOGY RADIOLOGY [facility] Radiology Study observation (narrative) [facility] CT Abdomen and Pelvis WO con trastOrdered By: Chavez Larkin on 08-31-2023 [facility] Work Phone: CT CHEST WITHOUT CONTRASTon 08-31-2023 CT CHEST WITHOUT CONTRAST Normal [facility] CT Chest WO contraston 08-31 RADIOLOGY RADIOLOGY [facility] Radiology Study observation (narrative) [facility] CT Chest WO contrastOrdered By: Daisha Patterson on 08-31-2023 [facility] Work Phone: FERRITINon 08-31-2023 Ferritin [Mass/Vol] 409.0 ng/mL High 10.5 - 3 07.3 ng/mL [facility] Interpretation and review of laboratory results Abnormal [facility] Ferritin [Mass/Vol] 409.0 ng/mL High 10.5-307.3 [facility] Comment on above: Performed By: #### M GO, HFP, CHM7, FERIB, PROCAL ####[facility] (DEFAULT)[address] [place] [address] HEPATIC FUNCTION PANELon Albumin [Mass/Vol] 3.3 g/dL Low 3.5-5.0 [facility] Comment on above: Performed By: #### M GO, HFP, CHM7, FERIB, PROCAL ####[facility] (DEFAULT)[address] [facility] [place] [address] ALP [Catalytic activity/Vol] 113 U/L Normal 32-126 [facility] Comment on above: Performed By: #### M GO, HFP, CHM7, FERIB, PROCAL ####[facility] (DEFAULT)[address] [facility] [place] [address] ALT [Catalytic activity/Vol] 25 U/L Normal 10-52 [facility] Comment on above: Performed By: #### M GO, HFP, CHM7, FERIB, PROCAL ####[facility] (DEFAULT)[address] [facility] [place] [address] AST [Catalytic activity/Vol] 31 U/L Normal 10-39 [facility] Comment on above: Performed By: #### M GO, HFP, CHM7, FERIB, PROCAL ####[facility] (DEFAULT)[address] [facility] [place] [address] Bilirubin [Mass/Vol] 1.1 mg/dL Normal <1.5 [facility] Comment on above: Performed By: #### M GO, HFP, CHM7, FERIB, PROCAL ####[facility] (DEFAULT)[address] [facility] [place] [address] Bilirubin.indirect [Mass/Vol] 0.3 mg/dL High <0.3 [facility] Comment on above: Performed By: #### M MERLE, HFP, CHM7, FERIB, PROCAL ####[facility] (DEFAULT)[address] [facility] [place] [address] Protein [Mass/Vol] 7.0 g/dL Normal 6.4-8.3 [facility] Comment on above: Performed By: #### M TAVO BLOOM, CHM7, FERIB, PROCAL ####[facility] (DEFAULT)[address] [place] [address] Albumin [Mass/Vol] 3.3 g/dL Low 3.5 - 5.0 g/dL [facility] ALP [Catalytic activity/Vol] 113 U/L 32 - 126 U/L [facility] ALT [Catalytic activity/Vol] 25 U/L 10 - 52 U/L [facility] AST [Catalytic activity/Vol] 31 U/L 10 - 39 U/L [facility] Bilirubin [Mass/Vol] 1.1 mg/dL NINF - 1.5 mg/dL [facility] Bilirubin.direct [Mass/Vol] 0.3 mg/dL High NINF - 0.3 mg/dL [facility] Protein [Mass/Vol] 7.0 g/dL 6.4 - 8.3 g/dL [facility] LEGIONELLA URINARY AGon Legionella Urinary Antigen Negative Normal Negative [facility] Comment on above: Performed By: #### L EGION ####[facility] (DEFAULT)[address] [place] [address] MAGNESIUMon 08-31-2023 Magnesium [Mass/Vol] 1.7 mg/dL Normal 1.6-2.6 [facility] Comment on above: Performed By: #### M GO, HFP, CHM7, FERIB, PROCAL ####[facility] (DEFAULT)[address] [place] [address] Interpretation and review of laboratory results Normal [facility] Magnesium [Mass/Vol] 1.7 mg/dL 1.6 - 2 .6 mg/dL [facility] No Panel Informationon 08-31 Interpretation and review of laboratory results Abnormal [facility] PROCALCITONINon 08-31-2023 Interpretation and review of laboratory results Normal [facility] Procalcitonin [Mass/Vol] 0.23 ng/mL NINF - 0.50 ng/mL [facility] Procalcitonin 0.23 ng/mL Normal <0.50 [facility] Comment on above: Result Comment: Proc alcitonin [...] and trend procalcitonin in various clinical settings. [email or web address]&action=[email or web address] common cutoffs associated with bacterial infections are as follows.Respiratory tract infections: >0.25 ng/mLSepsis/septic shock: >0.5 ng/mLProcalcitonin should not be used alone as a diagnostic tool, however. All procalcitonin results should be interpreted in association with the patients clinical condition and all laboratory findings. Performed By: #### M MERLE, TAVO, CHM7, ANG DOMINIQUE ####[facility] (DEFAULT)[address] [place] [address] TACROLIMUS LEVEL, TROUGH ([place] E DRUG LEVEL)Ordered By: Yanira Marcum on 08-31-2023 Interpretation and review of laboratory results Normal [facility] Tacrolimus (Bld) [Mass/Vol] 5.9 ng/mL [facility] TACROLIMUS LEVEL, TROUGH ([place] E DRUG LEVEL)on 08-31-2023 Tacrolimus, Trough 5.9 ng/mL Normal [facility] Transplant: 4.0-12.0, Therapeutic: 5.0-15.0 [facility] [place] Comment on above: Order Comment: Pleas e draw at specified interval PRIOR to dose. Do not hold dose to wait for level. Specimens batched twice per day, (M-F) and once per day weekendsMethod performed is a chemiluminescent microparticle immunoasssay on the [employer] Dyer i2000.The range is based on experience at [facility] and users should be aware that target concentrations vary widely depending on concomitant therapy, time post-transplant, and desired degree of immunosuppression. Performed By: #### T ACRO ####[facility] (DEFAULT)[address] [place] [address] URINE CULTUREOrdered By: Jorge crowe Held on 08-31-2023 Bacteria identified Cx Nom (Unsp spec) No Growth [facility] DARYL AURIS SCREEN BY PCRO rdered By: Mynor Alejandro on 08-30-2023 Daryl auris Screen by PCR Not detected Not Detected [facility] Interpretation and review of laboratory results Normal [facility] CBC,PLATELETSon 08-30-2023 Hematocrit (Bld) [Volume fraction] 41.3 % Normal 39.6-48.8 [facility] [place] Comment on above: Performed By: #### [facility] ####[facility] (DEFAULT)[address] [place] [address] Hemoglobin (Bld) [Mass/Vol] 13.2 g/dL Low 13.4-16.8 [facility] [place] Comment on above: Performed By: #### H EMOGC ####[facility] (DEFAULT)[address] [place] [address] MCV (RBC) [Entitic vol] 85.5 fL Normal 79.0-94.5 [facility] [place] Comment on above: Performed By: #### H EMOGC ####[facility] (DEFAULT)[address] [place] [address] Mean Cell Hgb 27.3 pg Normal 26.1-33.3 [facility] [place] Comment on above: Performed By: #### H EMOGC ####[facility] (DEFAULT)[address] [facility] [place] [address] Mean Cell Hgb Conc 32.0 g/dL Normal 31.9-36.5 [facility] Comment on above: Performed By: #### H EMOGC ####[facility] (DEFAULT)[address] [facility] [place] [address] Platelet mean volume (Bld) [Entitic vol] 9.2 fL Normal 8.7-12.3 [facility] [place] Comment on above: Performed By: #### H EMOGC ####[facility] (DEFAULT)[address] [facility] [place] [address] Platelets (Bld) [#/Vol] 235 10*3/uL Normal 146-337 [facility] [place] Comment on above: Performed By: #### H EMOGC ####[facility] (DEFAULT)[address] [place] [address] RBC (Bld) [#/Vol] 4.83 10*6/uL Normal 4.38-5.83 [facility] [place] Comment on above: Performed By: #### H EMOGC ####[facility] (DEFAULT)[address] [facility] [place] [address] RBC Distribution 13.3 % Normal 10.9-14.3 [facility] Comment on above: Performed By: #### H EMOGC ####[facility] (DEFAULT)[address] [facility] [place] [address] WBC (Bld) [#/Vol] 4.96 10*3/uL Normal 3.73-10.10 [facility] [place] Comment on above: Performed By: #### [facility] ####[facility] (DEFAULT)[address] [place] [address] Erythrocyte distribution width (RBC) [Ratio] 13.3 % 10.9 - 14.3 % [facility] Hematocrit (Bld) [Volume fraction] 41.3 % 39.6 - 48.8 % [facility] Hemoglobin (Bld) [Mass/Vol] 13.2 g/dL Low 13.4 - 16.8 g/dL [facility] Interpretation and review of laboratory results Abnormal [facility] MCH (RBC) [Entitic mass] 27.3 pg 26.1 - 33.3 pg [facility] MCHC (RBC) [Mass/Vol] 32.0 g/dL 31.9 - 36.5 g/dL [facility] MCV (RBC) [Entitic vol] 85.5 fL 79.0 - 94.5 fL [facility] Platelet mean volume (Bld) [Entitic vol] 9.2 fL 8.7 - 12.3 fL [facility] Platelets (Bld) [#/Vol] 235 10*3/uL 146 - 337 K/uL [facility] RBC (Bld) [#/Vol] 4.83 10*6/uL [facility] WBC (Bld) [#/Vol] 4.96 10*3/uL 3.73 - 10. 10 K/uL [facility] CHEM 7 (LYTES,BUN,CREA,GLUC) on 08-30-2023 Anion gap [Moles/Vol] 14 mmol/L Normal 7-17 [facility] [place] Comment on above: Performed By: #### TJ RAMÍREZ7, [facility] ####[facility] (DEFAULT)[address] [place] [address] Chloride [Moles/Vol] 102 mmol/L Normal 98-108 [facility] [place] Comment on above: Performed By: #### NATHANIEL RAMÍREZ, HFP ####[facility] (DEFAULT)[address] [place] [address] CO2 [Moles/Vol] 20 mmol/L Low 21-31 [facility] Comment on above: Performed By: #### NATHANIEL RAMÍREZ, HFP ####[facility] (DEFAULT)[address] [facility] [address] Creatinine [Mass/Vol] 1.56 mg/dL High 0.70-1.30 [facility] [place] Comment on above: Performed By: #### NATHANIEL RAMÍREZ, HFP ####[facility] (DEFAULT)[address] [facility] [place] [address] GFR/1.73 sq M.predicted among non-blacks MDRD (S/P/Bld) [Vol rate/Area] 53 mL/min/{1.73_m2} Low >=60 [facility] [place] Comment on above: Result Comment: Repo rted eGFR is based on the CKD-EPI 2020 equation using creatinine, age, and sex. Performed By: #### NATHANIEL RAMÍREZ, HFP ####[facility] (DEFAULT)[address] [facility] [place] [address] Glucose [Mass/Vol] 123 mg/dL High 70-99 [facility] Comment on above: Performed By: #### NATHANIEL RAMÍREZ, HFP ####[facility] (DEFAULT)[address] [facility] [place] [address] Osmolality [Osmolality] 281 mosm/kg Normal 278-305 [facility] [place] Comment on above: Performed By: #### NATHANIEL RAMÍREZ, HFP ####[facility] (DEFAULT)[address] [facility] [place] [address] Potassium [Moles/Vol] 4.3 mmol/L Normal 3.5-5.0 [facility] [place] Comment on above: Performed By: #### NATHANIEL RAMÍREZ, HFP ####[facility] (DEFAULT)[address] [place] [address] Sodium [Moles/Vol] 132 mmol/L Low 135-145 [facility] Comment on above: Performed By: #### M NATHANIEL BLOOM, HFP ####[facility] (DEFAULT)[address] [place] [address] Urea nitrogen [Mass/Vol] 16 mg/dL Normal 7-25 [facility] [place] Comment on above: Performed By: #### M NATHANIEL BLOOM, HFP ####[facility] (DEFAULT)[address] [facility] [place] [address] Urea nitrogen/Creatinine [Mass ratio] 10 mg/mg Normal [facility] [place] Comment on above: Performed By: #### NATHANIEL RAMÍREZ, HFP ####[facility] (DEFAULT)[address] [facility] [place] [place] [address] Anion gap [Moles/Vol] 14 mmol/L 7 - 17 mmol/L [facility] Chloride [Moles/Vol] 102 mmol/L 98 - 10 8 mmol/L [facility] CO2 [Moles/Vol] 20 mmol/L Low 21 - 31 mmol/L [facility] Creatinine [Mass/Vol] 1.56 mg/dL High 0.70 - 1.30 mg/dL [facility] eGFR, CKD-EPI, Male 53 Low - [facility] Glucose [Mass/Vol] 123 mg/dL High 70 - 99 mg/dL [facility] Osmolality Calc [Osmolality] [address] Potassium [Moles/Vol] 4.3 mmol/L 3.5 - 5.0 mmol/L [facility] Sodium [Moles/Vol] 132 mmol/L Low 135 - 145 mmol/L [facility] Urea nitrogen [Mass/Vol] 16 mg/dL 7 - 25 mg/dL [facility] Urea nitrogen/Creatinine [Mass ratio] 10 mg/mg [facility] EXTRA MICROon 08-30-2023 [facility] HEPATIC FUNCTION PANELon Albumin [Mass/Vol] 3.7 g/dL Normal 3.5-5.0 [facility] Comment on above: Performed By: #### M MERLE CHM7, HFP ####[facility] (DEFAULT)[address] [place] [address] ALP [Catalytic activity/Vol] 115 U/L Normal 32-126 [facility] [place] Comment on above: Performed By: #### M GO CHM7, HFP ####[facility] (DEFAULT)[address] [place] [address] ALT [Catalytic activity/Vol] 22 U/L Normal 10-52 [facility] [place] Comment on above: Performed By: #### M GO CHM7, HFP ####[facility] (DEFAULT)[address] [place] [address] AST [Catalytic activity/Vol] 34 U/L Normal 10-39 [facility] [place] Comment on above: Performed By: #### M GO CHM7, HFP ####[facility] (DEFAULT)[address] [place] [address] Bilirubin [Mass/Vol] 1.2 mg/dL Normal <1.5 [facility] [place] Comment on above: Performed By: #### M GO CHM7, HFP ####[facility] (DEFAULT)[address] [place] [address] Bilirubin.indirect [Mass/Vol] 0.3 mg/dL High <0.3 [facility] [place] Comment on above: Performed By: #### M GO CHM7, HFP ####[facility] (DEFAULT)[address] [place] [address] Protein [Mass/Vol] 7.7 g/dL Normal 6.4-8.3 [facility] Comment on above: Performed By: #### M GO, CHM7, HFP ####[facility] (DEFAULT)[address] [place] [address] Albumin [Mass/Vol] 3.7 g/dL 3.5 - 5.0 g/dL [facility] ALP [Catalytic activity/Vol] 115 U/L 32 - 126 U/L [facility] ALT [Catalytic activity/Vol] 22 U/L 10 - 52 U/L [facility] AST [Catalytic activity/Vol] 34 U/L 10 - 39 U/L [facility] Bilirubin [Mass/Vol] 1.2 mg/dL NINF - 1.5 mg/dL [facility] Bilirubin.direct [Mass/Vol] 0.3 mg/dL High NINF - 0.3 mg/dL [facility] Protein [Mass/Vol] 7.7 g/dL 6.4 - 8.3 g/dL [facility] MAGNESIUMon 08-30-2023 Magnesium [Mass/Vol] 1.8 mg/dL Normal 1.6-2.6 [facility] [place] Comment on above: Performed By: #### M GO, CHM7, [facility] ####[facility] (DEFAULT)[address] [place] [address] Interpretation and review of laboratory results Normal [facility] Magnesium [Mass/Vol] 1.8 mg/dL 1.6 - 2 .6 mg/dL [facility] No Panel Informationon 08-30 Interpretation and review of laboratory results Abnormal [facility] CBC,PLATELETSon 08-29-2023 Hematocrit (Bld) [Volume fraction] 37.6 % Low 39.6-48.8 [facility] [place] Comment on above: Performed By: #### H EMO ####[facility] (DEFAULT)[address] [place] [address] Hemoglobin (Bld) [Mass/Vol] 12.2 g/dL Low 13.4-16.8 [facility] [place] Comment on above: Performed By: #### H EMO ####[facility] (DEFAULT)[address] [place] [address] MCV (RBC) [Entitic vol] 85.1 fL Normal 79.0-94.5 [facility] [place] Comment on above: Performed By: #### H EMOGC ####[facility] (DEFAULT)[address] [place] [address] Mean Cell Hgb 27.6 pg Normal 26.1-33.3 [facility] [place] Comment on above: Performed By: #### H EMOGC ####[facility] (DEFAULT)[address] [facility] [place] [address] Mean Cell Hgb Conc 32.4 g/dL Normal 31.9-36.5 [facility] Comment on above: Performed By: #### H EMOGC ####[facility] (DEFAULT)[address] [facility] [place] [address] Platelet mean volume (Bld) [Entitic vol] 9.4 fL Normal 8.7-12.3 [facility] [place] Comment on above: Performed By: #### H EMOGC ####[facility] (DEFAULT)[address] [facility] [place] [address] Platelets (Bld) [#/Vol] 233 10*3/uL Normal 146-337 [facility] [place] Comment on above: Performed By: #### H EMOGC ####[facility] (DEFAULT)[address] [facility] [place] [address] RBC (Bld) [#/Vol] 4.42 10*6/uL Normal 4.38-5.83 [facility] [place] Comment on above: Performed By: #### H EMOGC ####[facility] (DEFAULT)[address] [facility] [place] [address] RBC Distribution 13.4 % Normal 10.9-14.3 [facility] Comment on above: Performed By: #### H EMOGC ####[facility] (DEFAULT)[address] [facility] [place] [address] WBC (Bld) [#/Vol] 4.92 10*3/uL Normal 3.73-10.10 [facility] [place] Comment on above: Performed By: #### H [facility] ####[facility] (DEFAULT)[address] [place] [address] Erythrocyte distribution width (RBC) [Ratio] 13.4 % 10.9 - 14.3 % [facility] Hematocrit (Bld) [Volume fraction] 37.6 % Low 39.6 - 48.8 % [facility] Hemoglobin (Bld) [Mass/Vol] 12.2 g/dL Low 13.4 - 16.8 g/dL [facility] Interpretation and review of laboratory results Abnormal [facility] MCH (RBC) [Entitic mass] 27.6 pg 26.1 - 33.3 pg [facility] MCHC (RBC) [Mass/Vol] 32.4 g/dL 31.9 - 36.5 g/dL [facility] MCV (RBC) [Entitic vol] 85.1 fL 79.0 - 94.5 fL [facility] Platelet mean volume (Bld) [Entitic vol] 9.4 fL 8.7 - 12.3 fL [facility] Platelets (Bld) [#/Vol] 233 10*3/uL 146 - 337 K/uL [facility] RBC (Bld) [#/Vol] 4.42 10*6/uL [facility] WBC (Bld) [#/Vol] 4.92 10*3/uL 3.73 - 10. 10 K/uL [facility] CHEM 7 (LYTES,BUN,CREA,GLUC) on 08-29-2023 Anion gap [Moles/Vol] 13 mmol/L Normal 7-17 [facility] [place] Comment on above: Performed By: #### M GO, CHM7, GGTB, HFP ####[facility] (DEFAULT)[address] [place] [address] Chloride [Moles/Vol] 105 mmol/L Normal 98-108 [facility] [place] Comment on above: Performed By: #### M GO, CHM7, GGTB, HFP ####[facility] (DEFAULT)[address] [place] [address] CO2 [Moles/Vol] 20 mmol/L Low 21-31 [facility] Comment on above: Performed By: #### M GO, CHM7, GGTB, HFP ####[facility] (DEFAULT)[address] [place] [address] Creatinine [Mass/Vol] 1.55 mg/dL High 0.70-1.30 [facility] [place] Comment on above: Performed By: #### M GO, CHM7, GGTB, HFP ####[facility] (DEFAULT)[address] [place] [address] GFR/1.73 sq M.predicted among non-blacks MDRD (S/P/Bld) [Vol rate/Area] 54 mL/min/{1.73_m2} Low >=60 [facility] [place] Comment on above: Result Comment: Repo rted eGFR is based on the CKD-EPI 2020 equation using creatinine, age, and sex. Performed By: #### M GO, CHM7, GGTB, HFP ####[facility] (DEFAULT)[address] [place] [address] Glucose [Mass/Vol] 108 mg/dL High 70-99 [facility] Comment on above: Performed By: #### M GO, CHM7, GGTB, HFP ####[facility] (DEFAULT)[address] [place] [address] Osmolality [Osmolality] 283 mosm/kg Normal 278-305 [facility] [place] Comment on above: Performed By: #### M GO, CHM7, GGTB, HFP ####[facility] (DEFAULT)[address] [place] [address] Potassium [Moles/Vol] 4.5 mmol/L Normal 3.5-5.0 [facility] [place] Comment on above: Performed By: #### M GO, CHM7, GGTB, HFP ####[facility] (DEFAULT)[address] [place] [address] Sodium [Moles/Vol] 133 mmol/L Low 135-145 [facility] Comment on above: Performed By: #### M GO, CHM7, GGTB, HFP ####[facility] (DEFAULT)[address] [facility] [place] [address] Urea nitrogen [Mass/Vol] 19 mg/dL Normal 7-25 [facility] [place] Comment on above: Performed By: #### M GO, CHM7, GGTB, HFP ####[facility] (DEFAULT)[address] [facility] [place] [place] [address] Urea nitrogen/Creatinine [Mass ratio] 12 mg/mg Normal [facility] [place] Comment on above: Performed By: #### M GO, CHM7, GGTB, HFP ####[facility] (DEFAULT)[address] [place] [address] Anion gap [Moles/Vol] 13 mmol/L 7 - 17 mmol/L [facility] Chloride [Moles/Vol] 105 mmol/L 98 - 10 8 mmol/L [facility] CO2 [Moles/Vol] 20 mmol/L Low 21 - 31 mmol/L [facility] Creatinine [Mass/Vol] 1.55 mg/dL High 0.70 - 1.30 mg/dL [facility] eGFR, CKD-EPI, Male 55 Low - [facility] Glucose [Mass/Vol] 108 mg/dL High 70 - 99 mg/dL [facility] Osmolality Calc [Osmolality] [address] Potassium [Moles/Vol] 4.5 mmol/L 3.5 - 5.0 mmol/L [facility] Sodium [Moles/Vol] 133 mmol/L Low 135 - 145 mmol/L [facility] Urea nitrogen [Mass/Vol] 19 mg/dL 7 - 25 mg/dL [facility] Urea nitrogen/Creatinine [Mass ratio] 12 mg/mg [facility] GGTon 08-29-2023 Gamma glutamyl transferase [Catalytic activity/Vol] 64 U/L 8 - 64 U/L [facility] Interpretation and review of laboratory results Normal [facility] Gamma glutamyl transferase [Catalytic activity/Vol] 64 U/L Normal 8-64 [facility] Comment on above: Performed By: #### M GO, CHM7, GGTB, HFP ####[facility] (DEFAULT)[address] [place] [address] HEPATIC FUNCTION PANELon Albumin [Mass/Vol] 3.3 g/dL Low 3.5-5.0 [facility] Comment on above: Performed By: #### M GO, CHM7, GGTB, HFP ####[facility] (DEFAULT)[address] [place] [address] ALP [Catalytic activity/Vol] 103 U/L Normal 32-126 [facility] [place] Comment on above: Performed By: #### M GO, CHM7, GGTB, HFP ####[facility] (DEFAULT)[address] [place] [address] ALT [Catalytic activity/Vol] 18 U/L Normal 10-52 [facility] [place] Comment on above: Performed By: #### M GO, CHM7, GGTB, HFP ####[facility] (DEFAULT)[address] [place] [address] AST [Catalytic activity/Vol] 27 U/L Normal 10-39 [facility] [place] Comment on above: Performed By: #### M GO, CHM7, GGTB, HFP ####[facility] (DEFAULT)[address] [place] [address] Bilirubin [Mass/Vol] 1.1 mg/dL Normal <1.5 [facility] [place] Comment on above: Performed By: #### M GO, CHM7, GGTB, HFP ####[facility] (DEFAULT)[address] [facility] [place] [address] Bilirubin.indirect [Mass/Vol] 0.3 mg/dL High <0.3 [facility] [place] Comment on above: Performed By: #### M GO, CHM7, GGTB, HFP ####[facility] (DEFAULT)[address] [place] [address] Protein [Mass/Vol] 6.8 g/dL Normal 6.4-8.3 [facility] Comment on above: Performed By: #### M GO, CHM7, GGTB, HFP ####[facility] (DEFAULT)[address] [place] [address] Albumin [Mass/Vol] 3.3 g/dL Low 3.5 - 5.0 g/dL [facility] ALP [Catalytic activity/Vol] 103 U/L 32 - 126 U/L [facility] ALT [Catalytic activity/Vol] 18 U/L 10 - 52 U/L [facility] AST [Catalytic activity/Vol] 27 U/L 10 - 39 U/L [facility] Bilirubin [Mass/Vol] 1.1 mg/dL [facility] mg/dL [facility] Bilirubin.direct [Mass/Vol] 0.3 mg/dL High NINF - 0.3 mg/dL [facility] Protein [Mass/Vol] 6.8 g/dL 6.4 - 8.3 g/dL [facility] HISTOPLASMA AND BLASTOMYCES ANTIGEN, ENZYME IMMUNOASSAY, SERMon 08-29-2023 Histoplasma/Blastomy antonia Ag Result Detected Invalid Interpretation Code Not Detected [facility] Comment on above: Result Comment: Anti gen from Histoplasma or Blastomyces (unable todifferentiate) detected. Result should be correlated withclinical presentation, exposure history, and otherdiagnostic procedures, including culture, serology,histopathology, and/or radiographic findings, to aid in thedifferentiation between histoplasmosis and blastomycosis.CRITICAL RESULT Performed By: #### H IBAG ####[facility] (DEFAULT)[address] [place] [address] Histoplasma/Blastomy antonia Ag Value 5.3 ng/mL Normal [facility] Comment on above: Result Comment: ---- ADDITIONAL INFORMATION This test was developed and its performance characteristicsdetermined by [facility] in a manner consistent with CLIArequirements. This test has not been cleared or approved bythe U.S. Food and Drug Administration.Test Performed by:[address] Director: Rosendo Bose M.D. Ph.D.; CLIA# [id number] Performed By: #### H IBAG ####[facility] (DEFAULT)[address] [facility] [place] [address] HISTOPLASMA ANTIGEN,URINEon 08-29-2023 HISTOPLASM AG, URINE Not detected Normal Not Detected [facility] [place] Comment on above: Result Comment: No H istoplasma antigen detected.False negative results may occur. Repeat testing on anew specimen should be considered if clinically indicated. Performed By: #### Y HISTG ####[facility] (DEFAULT)[address] [facility] [place] [address] Histoplasma Ag Value Not detected Normal [facility] Comment on above: Result Comment: ---- ADDITIONAL INFORMATION This test has been modified from the music engineer'sinstructions. Its performance characteristics weredetermined by [facility] in a manner consistent withCLIA requirements. This test has not been cleared orapproved by the U.S. Food and Drug Administration.Test Performed by:[facility] - [address] [address] Director: Rosendo Bose M.D. Ph.D.; CLIA# [id number] Performed By: #### Y HISTG ####[facility] (DEFAULT)[address] [place] [address] MAGNESIUMon 08-29-2023 Magnesium [Mass/Vol] 1.7 mg/dL Normal 1.6-2.6 [facility] [place] Comment on above: Performed By: #### M GO, CHM7, GGTB, HFP ####[facility] (DEFAULT)[address] [place] [address] Interpretation and review of laboratory results Normal [facility] Magnesium [Mass/Vol] 1.7 mg/dL 1.6 - 2 .6 mg/dL [facility] No Panel Informationon 08-29 Interpretation and review of laboratory results Abnormal [facility] PT,INR,PTTon 08-29-2023 aPTT Coag (Bld) [Time] 29.3 s Normal 24.0-34.3 [facility] Comment on above: Performed By: #### P TPTT ####[facility] (DEFAULT)[address] [place] [address] INR Coag (PPP) [Relative time] 1.1 {INR} Normal 0.9-1.1 [facility] Comment on above: Performed By: #### P TPTT ####[facility] (DEFAULT)[address] [place] [place] [address] PT Coag (PPP) [Time] 13.8 s Normal 11.9-14.2 [facility] Comment on above: Performed By: #### P TPTT ####[facility] (DEFAULT)[address] [place] [address] aPTT Coag (PPP) [Time] 29.3 s [facility] INR Coag (Bld) [Relative time] 1.1 {INR} 0.9 - 1.1 [facility] Interpretation and review of laboratory results Normal [facility] PT Coag (PPP) [Time] 13.8 s [facility] Portable XR Chest Viewson RADIOLOGY RADIOLOGY [facility] Portable XR Chest ViewsOrder ed By: Gerald Baer on 08-29-2023 [facility] Work Phone: TACROLIMUS LEVEL, TROUGH ([place] E DRUG LEVEL)on 08-29-2023 Interpretation and review of laboratory results Normal [facility] Tacrolimus (Bld) [Mass/Vol] 8.9 ng/mL [facility] Tacrolimus, Trough 8.9 ng/mL Normal Bone Susana ow Transplant: 4.0-12.0, Therapeutic: 5.0-15.0 [facility] Comment on above: Order Comment: Pleas e draw at specified interval PRIOR to dose. Do not hold dose to wait for level. Specimens batched twice per day, (M-F) and once per day weekendsMethod performed is a chemiluminescent microparticle immunoasssay on the [employer] Dyer i2000.The range is based on experience at [facility] and users should be aware that target concentrations vary widely depending on concomitant therapy, time post-transplant, and desired degree of immunosuppression. Performed By: #### T ACRO ####[facility] (DEFAULT)[address] [place] [address] Tacrolimus, Trough 8.7 ng/mL Normal [facility] Susana ow Transplant: 4.0-12.0, Therapeutic: 5.0-15.0 [facility] Comment on above: Order Comment: Pleas e draw at specified interval PRIOR to dose. Do not hold dose to wait for level. Specimens batched twice per day, (M-F) and once per day weekendsMethod performed is a chemiluminescent microparticle immunoasssay on the [employer] Dyer i2000.The range is based on experience at [facility] and users should be aware that target concentrations vary widely depending on concomitant therapy, time post-transplant, and desired degree of immunosuppression. Performed By: #### T ACRO ####[facility] (DEFAULT)[address] [place] [address] TACROLIMUS LEVEL, TROUGH ([place] E DRUG LEVEL)Ordered By: Roxanne Louie on 08-29-2023 Interpretation and review of laboratory results Normal [facility] Tacrolimus (Bld) [Mass/Vol] 8.7 ng/mL [facility] URINALYSIS REFLEX TO CULTURE PERFORMABLEon 08-29-2023 Appearance (U) Clear Normal Clear [facility] Comment on above: Order Comment: For i ndwelling catheters, specimen collection is acceptable on catheter day 1 and 2 only. ? Performed By: #### U [id number] ####[facility] (DEFAULT)[address] [place], [place] [address], [place] [address] Bacteria ABSENT Normal ABSENT [facility] Comment on above: Order Comment: For i ndwelling catheters, specimen collection is acceptable on catheter day 1 and 2 only. ? Performed By: #### U [id number] ####[facility] (DEFAULT)[address] [facility] [place] [address] Blood Urine Trace Abnormal Negative [facility] Comment on above: Order Comment: For i ndwelling catheters, specimen collection is acceptable on catheter day 1 and 2 only. ? Performed By: #### U [id number] ####[facility] (DEFAULT)[address] [place] [address] Calcium Oxalate Crystals PRESENT Normal [facility] Comment on above: Order Comment: For i ndwelling catheters, specimen collection is acceptable on catheter day 1 and 2 only. ? Performed By: #### U [id number] ####[facility] (DEFAULT)[address] [facility] [place] [address] Color (U) Yellow Normal Yellow [facility] Comment on above: Order Comment: For i ndwelling catheters, specimen collection is acceptable on catheter day 1 and 2 only. ? Performed By: #### U [id number] ####[facility] (DEFAULT)[address] [facility] [place] [address] Glucose Ql (U) Negative Normal Negative [facility] Comment on above: Order Comment: For i ndwelling catheters, specimen collection is acceptable on catheter day 1 and 2 only. ? Performed By: #### U [id number] ####[facility] (DEFAULT)[address] [place] [address] Ketones Ql (U) Negative Normal Negative [facility] Comment on above: Order Comment: For i ndwelling catheters, specimen collection is acceptable on catheter day 1 and 2 only. ? Performed By: #### U [id number] ####[facility] (DEFAULT)[address] [place] [address] Leukocyte esterase Test strip Ql (U) Negative Normal Negative [facility] Comment on above: Order Comment: For i ndwelling catheters, specimen collection is acceptable on catheter day 1 and 2 only. ? Performed By: #### U [id number] ####[facility] (DEFAULT)[address] [facility] [place] [address] Nitrites Urine Negative Normal Negative [facility] Comment on above: Order Comment: For i ndwelling catheters, specimen collection is acceptable on catheter day 1 and 2 only. ? Performed By: #### U [id number] ####[facility] (DEFAULT)[address] [place] [address] pH (U) 6.0 [pH] Normal 5.0-7.0 [facility] Comment on above: Order Comment: For i ndwelling catheters, specimen collection is acceptable on catheter day 1 and 2 only. ? Performed By: #### U [id number] ####[facility] (DEFAULT)[address] [place] [address] Protein Urine Negative Normal Negative [facility] Comment on above: Order Comment: For i ndwelling catheters, specimen collection is acceptable on catheter day 1 and 2 only. ? Performed By: #### U [id number] ####[facility] (DEFAULT)[address] [facility] [place] [address] RBC Urine 3-5 Abnormal 0-2 [facility] Comment on above: Order Comment: For i ndwelling catheters, specimen collection is acceptable on catheter day 1 and 2 only. ? Performed By: #### U [id number] ####[facility] (DEFAULT)[address] [place] [address] Specific [place] Urine 1.015 Normal 1.001-1.035 [facility] Comment on above: Order Comment: For i ndwelling catheters, specimen collection is acceptable on catheter day 1 and 2 only. ? Performed By: #### U [id number] ####[facility] (DEFAULT)[address] [place] [address], [place] [address] Squamous/Epithelial Cells 0-2/hpf Normal 0-2/hpf, 3-5/hpf = 1+ [facility] Comment on above: Order Comment: For i ndwelling catheters, specimen collection is acceptable on catheter day 1 and 2 only. ? Performed By: #### U [id number] ####[facility] (DEFAULT)[address] [place] [address], [place] [address] Urobilinogen Urine 1.0 E.U./dL Normal 0.2 E.U/d L, 1.0 E.U/dL [facility] [place] Comment on above: Order Comment: For i ndwelling catheters, specimen collection is acceptable on catheter day 1 and 2 only. ? Performed By: #### U [id number] ####[facility] (DEFAULT)[address] [place] [address], [place] [address] WBC Urine 0 - 5 Normal 0 - 5 [facility] Comment on above: Order Comment: For i ndwelling catheters, specimen collection is acceptable on catheter day 1 and 2 only. ? Performed By: #### U [id number] ####[facility] (DEFAULT)[address] [place] [address] URINALYSIS REFLEX TO CULTURE PERFORMABLEOrdered By: Shaji Kelly on 08-29-2023 Appearance (U) Clear Clear [facility] Bacteria LM Ql (Urine sed) ABSENT ABSENT [facility] Calcium Oxalate Crystals PRESENT [facility] Color (U) Yellow Yellow [facility] Epithelial cells.squamous LM Ql (Urine sed) 0-2/hpf 0-2/hpf, 3-5/hpf = 1+ [facility] Glucose Test strip (U) [Mass/Vol] Negative Negative [facility] Interpretation and review of laboratory results Abnormal [facility] Ketones (U) [Mass/Vol] Negative Negative [facility] Leukocyte esterase Test strip Ql (U) Negative Negative [facility] Nitrite Ql (U) Negative Negative [facility] pH (U) 6.0 [pH] 5.0 - 7.0 [facility] Protein (U) [Mass/Vol] Negative Negative [facility] RBC (U) [#/Vol] Trace Abnormal Negative [facility] RBC LM.HPF (Urine sed) [#/Area] 3-5 Abnormal [facility] Specific gravity (U) [Rel density] 1.015 1.001 - 1.035 [facility] Urobilinogen (U) [Mass/Vol] 1.0 E.U./dL 0.2 E.U/dL, 1.0 E.U/dL [facility] WBC LM.HPF (Urine sed) [#/Area] 0 - 5 [facility] URINE CULTUREon 08-29-2023 Bacteria identified Cx Nom (U) No Growth Normal [facility] Comment on above: Order Comment: For i ndwelling catheters, specimen collection is acceptable on catheter day 1 and 2 only. Sung top vacutainer. Urine must be to the fill line to process (4mls). If minimum volume, send urine in a yellow top vacutainer tube. Performed By: #### U R ####[facility] (DEFAULT)[address] [place] [address] US RENAL TRANSPLANT SCANon 0 08-29-2023 US RENAL TRANSPLANT SCAN Normal [facility] US for transplanted kidney l imitedon 08-29-2023 RADIOLOGY RADIOLOGY [facility] Radiology Study observation (narrative) [facility] US for transplanted kidney l imitedOrdered By: Romana Myers on 08-29-2023 [facility] Work Phone: XR CHEST PORTABLEon 08-29-20 23 XR CHEST PORTABLE Normal [facility] BLOOD CULTUREon 08-28-2023 Bacteria identified Cx Nom (Unsp spec) NO GROWTH DAY 5 OF 5 Normal [facility] Comment on above: Order Comment: 2 Bot tles (1 Set - consists of 1 Aerobic bottle and 1 Anaerobic bottle) -1st Peripheral DrawFor syringe method draw:If able to obtain adequate sample (20 ml) inoculate anaerobic bottle firstIf inadequate sample obtained (less than 20 ml) inoculate aerobic bottle firstFor vacutainer method draw: Fill aerobic bottle first, then anaerobic Performed By: #### B LDCULT ####[facility] (DEFAULT)[address] [place] [address] Bacteria identified Cx Nom (Unsp spec) NO GROWTH DAY 5 OF 5 Normal [facility] Comment on above: Order Comment: 2 Bot tles (1 Set - consists of 1 Aerobic bottle and 1 Anaerobic bottle) -1st Peripheral DrawFor syringe method draw:If able to obtain adequate sample (20 ml) inoculate anaerobic bottle firstIf inadequate sample obtained (less than 20 ml) inoculate aerobic bottle firstFor vacutainer method draw: Fill aerobic bottle first, then anaerobic Performed By: #### B LDCULT ####[facility] (DEFAULT)[address] [place] [address] DARYL AURIS SCREEN BY PCRo n 08-28-2023 Daryl auris Screen by PCR Not detected Normal Not Detected [facility] Comment on above: Order Comment: This test was performed using a real-time PCR assay. This test was developed, and its performance characteristics determined by [facility] at [facility]. It has not been cleared or approved by the FDA. The laboratory is regulated under CLIA as qualified to perform high-complexity testing. This test is used for clinical purposes. It should not be regarded as investigational or for research. Performed By: #### C ANDIDA AURIS SCREEN BY PCR ####[facility] (DEFAULT)[address] [place] [address] CBC AND ELECTRONIC DIFFon Abs Baso Auto < Normal 0.00-0.09 [facility] Comment on above: Performed By: #### L [id number] ####[facility] (DEFAULT)[address] [facility] [place] [address] Basophils/100 WBC (Bld) 0.6 % Normal [facility] Comment on above: Performed By: #### L [id number] ####[facility] (DEFAULT)[address] [facility] [place] [address] DIFF STATUS Electronic Differential Normal [facility] Comment on above: Performed By: #### L [id number] ####[facility] (DEFAULT)[address] [place] [address] Eosinophils (Bld) [#/Vol] 0.10 10*3/uL Normal 0.00-0.48 [facility] Comment on above: Performed By: #### L [id number] ####[facility] (DEFAULT)[address] [place] [address] Eosinophils/100 WBC (Bld) 2.1 % Normal [facility] Comment on above: Performed By: #### L [id number] ####[facility] (DEFAULT)[address] [place] [address] Hematocrit (Bld) [Volume fraction] 37.9 % Low 39.6-48.8 [facility] Comment on above: Performed By: #### L [id number] ####[facility] (DEFAULT)[address] [place] [address], [place] [address] Hemoglobin (Bld) [Mass/Vol] 12.4 g/dL Low 13.4-16.8 [facility] Comment on above: Performed By: #### L [id number] ####[facility] (DEFAULT)[address] [facility] [place] [address] Immature Grans % 0.6 % Normal [facility] Comment on above: Performed By: #### L [id number] ####[facility] (DEFAULT)[address] [facility] [place] [address] Immature Grans Absolute < Normal <=0.07 [facility] Comment on above: Performed By: #### L [id number] ####[facility] (DEFAULT)[address] [facility] [place] [address] Lymphocytes (Bld) [#/Vol] 1.76 10*3/uL Normal 0.83-3.57 [facility] Comment on above: Performed By: #### L [id number] ####[facility] (DEFAULT)[address] [place] [address] Lymphocytes/100 WBC (Bld) 37.1 % Normal [facility] Comment on above: Performed By: #### L [id number] ####[facility] (DEFAULT)[address] [place] [address] MCV (RBC) [Entitic vol] 85.0 fL Normal 79.0-94.5 [facility] Comment on above: Performed By: #### L [id number] ####[facility] (DEFAULT)[address] [place] [address] Mean Cell Hgb 27.8 pg Normal 26.1-33.3 [facility] Comment on above: Performed By: #### L [id number] ####[facility] (DEFAULT)[address] [place] [address] Mean Cell Hgb Conc 32.7 g/dL Normal 31.9-36.5 [facility] Comment on above: Performed By: #### L [id number] ####[facility] (DEFAULT)[address] [place] [address] Monocytes (Bld) [#/Vol] 0.66 10*3/uL Normal 0.24-0.93 [facility] Comment on above: Performed By: #### L [id number] ####[facility] (DEFAULT)[address] [place] [address] Monocytes/100 WBC (Bld) 13.9 % Normal [facility] Comment on above: Performed By: #### L [id number] ####[facility] (DEFAULT)[address] [place] [address] Nucleated RBC 0.0 /100 WBC Normal <=0.2 [facility] Comment on above: Performed By: #### L [id number] ####[facility] (DEFAULT)[address] [place] [address] Platelet mean volume (Bld) [Entitic vol] 9.3 fL Normal 8.7-12.3 [facility] Comment on above: Performed By: #### L [id number] ####[facility] (DEFAULT)[address] [place] [address] Platelets (Bld) [#/Vol] 262 10*3/uL Normal 146-337 [facility] Comment on above: Performed By: #### L [id number] ####[facility] (DEFAULT)[address] [facility] [place] [address] RBC (Bld) [#/Vol] 4.46 10*6/uL Normal 4.38-5.83 [facility] Comment on above: Performed By: #### L [id number] ####[facility] (DEFAULT)[address] [facility] [place] [address] RBC Distribution 13.4 % Normal 10.9-14.3 [facility] Comment on above: Performed By: #### L [id number] ####[facility] (DEFAULT)[address] [facility] [place] [address] Segs + Bands Auto 45.7 % Normal [facility] Comment on above: Performed By: #### L [id number] ####[facility] (DEFAULT)[address] [place] [address] Segs + Bands,Absolute Auto 2.16 K/uL Normal 1.57-6.19 [facility] Comment on above: Performed By: #### L [id number] ####[facility] (DEFAULT)[address] [place] [address] WBC (Bld) [#/Vol] 4.74 10*3/uL Normal 3.73-10.10 [facility] Comment on above: Performed By: #### L [id number] ####[facility] (DEFAULT)[address] [place] [address] Basophils (Bld) [#/Vol] K/uL 0.00 - 0.09 K/uL [facility] Basophils/100 WBC (Bld) 0.6 % [facility] Differential cell count method Nom (Bld) Electronic Differential [facility] Eosinophils (Bld) [#/Vol] 0.10 10*3/uL 0.00 - 0.48 K/uL [facility] Eosinophils/100 WBC (Bld) 2.1 % [facility] Erythrocyte distribution width (RBC) [Ratio] 13.4 % 10.9 - 14.3 % [facility] Hematocrit (Bld) [Volume fraction] 37.9 % Low 39.6 - 48.8 % [facility] Hemoglobin (Bld) [Mass/Vol] 12.4 g/dL Low 13.4 - 16.8 g/dL [facility] Immature granulocytes (Bld) [#/Vol] K/uL NINF - 0.07 K/uL [facility] Immature granulocytes/100 WBC (Bld) 0.6 % [facility] Interpretation and review of laboratory results Abnormal [facility] Lymphocytes (Bld) [#/Vol] 1.76 10*3/uL 0.83 - 3.57 K/uL [facility] Lymphocytes/100 WBC (Bld) 37.1 % [facility] MCH (RBC) [Entitic mass] 27.8 pg 26.1 - 33.3 pg [facility] MCHC (RBC) [Mass/Vol] 32.7 g/dL 31.9 - 36.5 g/dL [facility] MCV (RBC) [Entitic vol] 85.0 fL 79.0 - 94.5 fL [facility] Monocytes (Bld) [#/Vol] 0.66 10*3/uL 0.24 - 0.93 K/uL [facility] Monocytes/100 WBC (Bld) 13.9 % [facility] Neutrophils (Bld) [#/Vol] 2.16 10*3/uL 1.57 - 6.19 K/uL [facility] Nucleated RBC/100 WBC (Bld) [Ratio] 0.0 % [facility] Platelet mean volume (Bld) [Entitic vol] 9.3 fL 8.7 - 12.3 fL [facility] Platelets (Bld) [#/Vol] 262 10*3/uL 146 - 337 K/uL [facility] RBC (Bld) [#/Vol] 4.46 10*6/uL [facility] Segmented neutrophils/100 WBC (Bld) 45.7 % [facility] WBC (Bld) [#/Vol] 4.74 10*3/uL 3.73 - 10. 10 K/uL [facility] CHEM 6 (LYTES, BUN CREA)on 0 08-28-2023 Anion gap [Moles/Vol] 13 mmol/L Normal 7-17 [facility] Comment on above: Performed By: #### C HM6 ####[facility] (DEFAULT)[address] [place] [address] Chloride [Moles/Vol] 103 mmol/L Normal 98-108 [facility] Comment on above: Performed By: #### C HM6 ####[facility] (DEFAULT)[address] [place] [address] CO2 [Moles/Vol] 22 mmol/L Normal 21-31 [facility] Comment on above: Performed By: #### C HM6 ####[facility] (DEFAULT)[address] [place] [address] Creatinine [Mass/Vol] 1.62 mg/dL High 0.70-1.30 [facility] Comment on above: Performed By: #### C HM6 ####[facility] (DEFAULT)[address] [place] [address] GFR/1.73 sq M.predicted among non-blacks MDRD (S/P/Bld) [Vol rate/Area] 51 mL/min/{1.73_m2} Low >=60 [facility] Comment on above: Result Comment: Repo rted eGFR is based on the CKD-EPI 2020 equation using creatinine, age, and sex. Performed By: #### C HM6 ####[facility] (DEFAULT)[address] [facility] [place] [address] Potassium [Moles/Vol] 4.3 mmol/L Normal 3.5-5.0 [facility] Comment on above: Performed By: #### C HM6 ####[facility] (DEFAULT)[address] [facility] [place] [address] Sodium [Moles/Vol] 134 mmol/L Low 135-145 [facility] Comment on above: Performed By: #### C HM6 ####[facility] (DEFAULT)[address] [facility] [place] [address] Urea nitrogen [Mass/Vol] 22 mg/dL Normal 7-25 [facility] Comment on above: Performed By: #### C HM6 ####[facility] (DEFAULT)[address] [facility] [place] [address] Urea nitrogen/Creatinine [Mass ratio] 14 mg/mg Normal [facility] Comment on above: Performed By: #### C HM6 ####[facility] (DEFAULT)[address] [place] [address] Anion gap [Moles/Vol] 13 mmol/L 7 - 17 mmol/L [facility] Chloride [Moles/Vol] 103 mmol/L 98 - 10 8 mmol/L [facility] CO2 [Moles/Vol] 22 mmol/L 21 - 31 mmol/L [facility] Creatinine [Mass/Vol] 1.62 mg/dL High 0.70 - 1.30 mg/dL [facility] eGFR, CKD-EPI, Male 51 Low - PINF [facility] Interpretation and review of laboratory results Abnormal [facility] Potassium [Moles/Vol] 4.3 mmol/L 3.5 - 5.0 mmol/L [facility] Sodium [Moles/Vol] 134 mmol/L Low 135 - 145 mmol/L [facility] Urea nitrogen [Mass/Vol] 22 mg/dL 7 - 25 mg/dL [facility] Urea nitrogen/Creatinine [Mass ratio] 14 mg[facility] IMMUNOCOMPROMISED RESPIRATOR Y PANELon 08-28-2023 Adenovirus - Pcr Not detected Normal Not Detected [facility] Comment on above: Order Comment: Viral transport [...] acid assay. Performed By: #### I CRESP ####[facility] (DEFAULT)[address] [place] [address] Bordetella Parapertussis Not detected Normal Not Detected [facility] Comment on above: Order Comment: Viral transport [...] acid assay. Performed By: #### I CRESP ####[facility] (DEFAULT)[address] [place] [address], [place] [address] Bordetella Pertussis Not detected Normal Not Detected [facility] Comment on above: Order Comment: Viral transport [...] acid assay. Performed By: #### I CRESP ####[facility] [facility] (DEFAULT)[address] [place] [address], [place] [address] Chlamydia Pneumoniae Not detected Normal Not Detected [facility] Comment on above: Order Comment: Viral transport [...] acid assay. Performed By: #### I CRESP ####[facility] (DEFAULT)[address] [place] [address], [place] [address] Coronavirus 229E Not detected Normal Not Detected [facility] Comment on above: Order Comment: Viral transport [...] acid assay. Performed By: #### I CRESP ####[facility] (DEFAULT)[address] [place] [address], [place] [address] Coronavirus Hku1 Not detected Normal Not Detected [facility] Comment on above: Order Comment: Viral transport [...] acid assay. Performed By: #### I CRESP ####[facility] (DEFAULT)[address] [place] [address], [place] [address] Coronavirus Nl63 Not detected Normal Not Detected [facility] Comment on above: Order Comment: Viral transport [...] acid assay. Performed By: #### I CRESP ####[facility] (DEFAULT)[address] [place] [address], [place] [address] Coronavirus Oc43 Not detected Normal Not Detected [facility] Comment on above: Order Comment: Viral transport [...] acid assay. Performed By: #### I CRESP ####[facility] (DEFAULT)[address] [place] [address], [place] [address] Influenza A - Pcr Not detected Normal Not Detected [facility] Comment on above: Order Comment: Viral transport [...] acid assay. Performed By: #### I CRESP ####[facility] (DEFAULT)[address] [place] [address], [place] [address] Influenza B - Pcr Not detected Normal Not Detected [facility] Comment on above: Order Comment: Viral transport [...] acid assay. Performed By: #### I CRESP ####[facility] (DEFAULT)[address] [place] [address], [place] [address] Metapneumovirus - Pcr Not detected Normal Not Detected [facility] Comment on above: Order Comment: Viral transport [...] acid assay. Performed By: #### I CRESP ####[facility] (DEFAULT)[address] [place] [address], [place] [address] Mycoplasma Pneumoniae Not detected Normal Not Detected [facility] Comment on above: Order Comment: Viral transport [...] acid assay. Performed By: #### I CRESP ####[facility] (DEFAULT)[address] [place] [address], [place] [address] Parainfluenza 1 - Pcr Not detected Normal Not Detected [facility] Comment on above: Order Comment: Viral transport [...] acid assay. Performed By: #### I CRESP ####[facility] (DEFAULT)[address] [place] [address], [place] [address] Parainfluenza 2 - Pcr Not detected Normal Not Detected [facility] Comment on above: Order Comment: Viral transport [...] acid assay. Performed By: #### I CRESP ####[facility] (DEFAULT)[address] [place] [address], [place] [address] Parainfluenza 3 - Pcr Not detected Normal Not Detected [facility] Comment on above: Order Comment: Viral transport [...] acid assay. Performed By: #### I CRESP ####[facility] (DEFAULT)[address] [place] [address], [place] [address] Parainfluenza 4 - Pcr Not detected Normal Not Detected [facility] Comment on above: Order Comment: Viral transport [...] acid assay. Performed By: #### I CRESP ####[facility] (DEFAULT)[address] [facility] [place] [place] [address] Rhinovirus/Enterovir us - PCR Not detected Normal Not Detected [facility] Comment on above: Order Comment: Viral transport [...] acid assay. Performed By: #### I CRESP ####[facility] (DEFAULT)[address] [place] [address] Rsv - Pcr Not detected Normal Not Detected [facility] Comment on above: Order Comment: Viral transport [...] acid assay. Performed By: #### I CRESP ####[facility] (DEFAULT)[address] [place] [address] SARS-CoV-2 (COVID-19) RNA ESTELITA+probe Ql (Unsp spec) Not detected Normal NOT DETECTED [facility] Comment on above: Order Comment: Viral transport [...] acid assay. Performed By: #### I CRESP ####[facility] (DEFAULT)[address] [place] [address] Portable XR Chest Viewson Radiology Study observation (narrative) [facility] Respiratory virus DNA+RNA NA A+probe Nom (Unsp spec)Ordered By: Dayami Harris on 08-28-2023 Adenovirus DNA ESTELITA+probe Nom (Unsp spec) Not detected Not Detected [facility] B. parapertussis DNA ESTELITA+probe Ql (Unsp spec) Not detected Not Detected [facility] B. pertussis DNA ESTELITA+probe Ql (Unsp spec) Not detected Not Detected [facility] C. pneumoniae DNA ESTELITA+probe Ql (Unsp spec) Not detected Not Detected [facility] FLUAV RNA ESTELITA+probe Ql (Unsp spec) Not detected Not Detected [facility] FLUBV RNA ESTELITA+probe Ql (Unsp spec) Not detected Not Detected [facility] HCoV 229E RNA ESTELITA+non-probe Ql (Nph) Not detected Not Detected [facility] HCoV HKU1 RNA ESTELITA+non-probe Ql (Nph) Not detected Not Detected [facility] HCoV NL63 RNA ESTELITA+non-probe Ql (Nph) Not detected Not Detected [facility] HCoV OC43 RNA ESTELITA+non-probe Ql (Nph) Not detected Not Detected [facility] hMPV A RNA ESTELITA+probe Ql (Unsp spec) Not detected Not Detected [facility] Interpretation and review of laboratory results Normal [facility] M. pneumoniae DNA ESTELITA+probe Ql (Unsp spec) Not detected Not Detected [facility] Parainfluenza virus 1 RNA ESTELITA+probe Ql (Unsp spec) Not detected Not Detected [facility] Parainfluenza virus 2 RNA ESTELITA+probe Ql (Unsp spec) Not detected Not Detected [facility] Parainfluenza virus 3 RNA ESTELITA+probe Ql (Unsp spec) Not detected Not Detected [facility] Parainfluenza virus 4 RNA ESTELITA+probe Ql (Unsp spec) Not detected Not Detected [facility] Rhinovirus+Enterovir us RNA ESTELITA+probe Ql (Unsp spec) Not detected Not Detected [facility] RSV RNA ESTELITA+probe Ql (Unsp spec) Not detected Not Detected [facility] SARS-CoV-2 (COVID-19) RNA ESTELITA+probe Ql (Unsp spec) Not detected NOT DETECTED [facility] ALBUMINon 04-28-2023 Albumin [Mass/Vol] 4.0 g/dL Normal 3.4-5.0 [facility] Comment on above: Performed By: #### C MP #### [facility] [address] [place] [address] Dr. Dwight Waters ALKALINE PHOSPHAon ALP [Catalytic activity/Vol] 106 U/L Normal 46-[address] [facility] Comment on above: Performed By: #### F [id number] #### [facility] [address] [place] [address] Dr. Dwight Waters BILIRUBIN CONJUGATED (DIRECT )on 04-28-2023 BILI, CONJUGATED 0.3 mg/dL Critically high 0.0-0.2 [facility] Comment on above: Performed By: #### C MP #### [facility] [address] [place] [address] Dr. Dwight Waters BILIRUBIN TOTALon 04-28-2023 Bilirubin [Mass/Vol] 1.4 mg/dL Critically high 0.2-1.0 [facility] Comment on above: Performed By: #### C MP #### [facility] [address] [place] [address] Dr. Dwight Waters BUNon 04-28-2023 Urea nitrogen [Mass/Vol] 12.0 mg/dL Normal 7.0-18.0 [facility] Comment on above: Performed By: #### U RTPCR #### [facility] [address] [place] [address] Dr. Dwight Waters CALCIUMon 04-28-2023 Calcium [Mass/Vol] 9.3 mg/dL Normal 8.5-10.1 [facility] Comment on above: Performed By: #### U RTPCR #### [facility] [address] [place] [address] Dr. Dwight Waters CBC AUTO DIFFon 04-28-2023 BASO # 0.1 103/ul Normal 0.0-0.1 [facility] Comment on above: Performed By: #### C BC #### [facility] [address] [place] [address] Dr. Dwight Waters Basophils/100 WBC (Bld) 0.9 % Normal 0.2-2.0 [facility] Comment on above: Performed By: #### C BC #### [facility] [address] [place] [address] Dr. Dwight Waters EO # 0.2 103/ul Normal 0.0-0.7 [facility] Comment on above: Performed By: #### C BC #### [facility] [address] [place] [address] Dr. Dwight Waters Eosinophils/100 WBC (Bld) 3.8 % Normal 0.9-7.0 [facility] Comment on above: Performed By: #### C BC #### [facility] [address] [place] [address] Dr. Dwight Waters Erythrocyte distribution width (RBC) [Ratio] 12.5 % Normal 11.0-15.0 [facility] Comment on above: Performed By: #### C BC #### [facility] [address] [place] [address] Dr. Dwight Waters Hematocrit (Bld) [Volume fraction] 49.8 % Normal 42.0-54.0 [facility] Comment on above: Performed By: #### C BC #### [facility] [address] [place] [address] Dr. Dwight Waters Hemoglobin (Bld) [Mass/Vol] 16.4 g/dL Normal 14.0-18.0 [facility] Comment on above: Performed By: #### C BC #### [facility] [address] [place] [address] Dr. Dwight Waters IG # 0.01 10e3/ul Normal 0.00-0.[address] [facility] Comment on above: Performed By: #### C BC #### [facility] [address] [place] [address] Dr. Dwight Waters IG % 0.2 % Normal 0.0-0.[address] [facility] Comment on above: Performed By: #### C BC #### [facility] [address] [place] [address] Dr. Dwight Waters LYMPH # 2.1 103/ul Normal 1.2-3.8 [facility] Comment on above: Performed By: #### C BC #### [facility] [address] [place] [address] Dr. Dwight Waters Lymphocytes/100 WBC (Bld) 39.1 % Normal 20.5-60.0 [facility] Comment on above: Performed By: #### C BC #### [facility] [address] [place] [address] Dr. Dwight Waters MANUAL DIFF REQ NO Normal [facility] Comment on above: Performed By: #### C BC #### [facility] [address] [place] [address] Dr. Dwight Waters MCH (RBC) [Entitic mass] 28.6 pg Normal 25.9-34.0 [facility] Comment on above: Performed By: #### C BC #### [facility] [address] [place] [address] Dr. Dwight Waters MCHC (RBC) [Mass/Vol] 32.9 g/dL Normal 29.9-35.2 [facility] Comment on above: Performed By: #### C BC #### [facility] [address] [place] [address] Dr. Dwight Waters MCV (RBC) [Entitic vol] 86.9 fL Normal 80.0-94.0 [facility] Comment on above: Performed By: #### C BC #### [facility] [address] [place] [address] Dr. Dwight Waters MONO # 0.6 103/ul Normal 0.3-0.8 [facility] Comment on above: Performed By: #### C BC #### [facility] [address] [place] [address] Dr. Dwight Waters Monocytes/100 WBC (Bld) 10.6 % Normal 1.7-12.0 [facility] Comment on above: Performed By: #### C BC #### [facility] [address] [place] [address] Dr. Dwight Waters NEUT # 2.5 103/ul Normal 1.4-6.5 [facility] Comment on above: Performed By: #### C BC #### [facility] [address] [address] [address] Dwight Waters Neutrophils/100 WBC (Bld) 45.4 % Normal 43.0-75.0 [facility] Comment on above: Performed By: #### C BC #### [facility] [address] [place] [address] Dr. Dwight Waters Platelet mean volume (Bld) [Entitic vol] 9.3 fL Critically low 9.5-13.5 [facility] Comment on above: Performed By: #### C BC #### [facility] [address] [place] [address] Dr. Dwight Waters PLT 248 103/ul Normal 150-[address] [facility] Comment on above: Performed By: #### C BC #### [facility] [address] [place] [address] Dr. Dwight Waters RBC 5.73 106/ul Normal 4.70-6.[address] [facility] Comment on above: Performed By: #### C BC #### [facility] [address] [place] [address] Dr. Dwight Waters WBC 5.5 103/ul Normal 4.0-11.[address] [facility] Comment on above: Performed By: #### C BC #### [facility] [address] [place] [address] Dr. Dwight Waters CHLORIDEon 04-28-2023 Chloride [Moles/Vol] 107 mmol/L Normal 98-[address] [facility] Comment on above: Performed By: #### U RTPCR #### [facility] [address] [place] [address] Dr. Dwight Waters CO2on 04-28-2023 CO2 [Moles/Vol] 28.9 mmol/L Normal 21.0-32.[address] [facility] Comment on above: Performed By: #### U RTPCR #### [facility] [address] [place] [address] Dr. Dwight Waters CREATININEon 04-28-2023 Creatinine [Mass/Vol] 1.17 mg/dL Normal 0.70-1.30 [facility] Comment on above: Performed By: #### U RTPCR #### [facility] [address] [place] [address] Dr. Dwight Waters EGFR-AF MONEGASQUE >60 Normal >=60 [facility] Comment on above: Performed By: #### U RTPCR #### [facility] [address] [place] [address] Dr. Dwight Waters EGFR-NON AF MONEGASQUE >60 Normal >=60 [facility] Comment on above: Performed By: #### U RTPCR #### [facility] [address] [place] [address] Dr. Dwight Waters GGTon 04-28-2023 Gamma glutamyl transferase [Catalytic activity/Vol] 27 U/L Normal 15-85 [facility] Comment on above: Performed By: #### U RTPCR #### [facility] [address] [place] [address] Dr. Dwight Waters GLUCOSE BLOODon 04-28-2023 Glucose [Mass/Vol] 110 mg/dL Critically high 74-106 [facility] Comment on above: Performed By: #### U RTPCR #### [facility] [address] [place] [address] Dr. Dwight Waters MAGNESIUMon 04-28-2023 Magnesium [Mass/Vol] 1.7 mg/dL Critically low 1.8-2.4 [facility] Comment on above: Performed By: #### U RTPCR #### [facility] [address] [place] [address] Dr. Dwight Waters NAon 04-28-2023 Sodium [Moles/Vol] 144 mmol/L Normal 136-145 [facility] Comment on above: Performed By: #### U RTPCR #### [facility] [address] [place] [address] Dr. Dwight Waters PHOSPHORUSon 04-28-2023 Phosphate [Mass/Vol] 3.2 mg/dL Normal 2.6-4.7 [facility] Comment on above: Performed By: #### U RTPCR #### [facility] [address] [place] [address] Dr. Dwight Waters POTASSIUMon 04-28-2023 Potassium [Moles/Vol] 4.0 mmol/L Normal 3.5-5.1 [facility] Comment on above: Performed By: #### U RTPCR #### [facility] [address] [place] [address] Dr. Dwight Waters SGOTon 04-28-2023 AST [Catalytic activity/Vol] 25 U/L Normal 15-37 [facility] Comment on above: Performed By: #### C MP #### [facility] [address] [place] [address] Dr. Dwight Waters SGPTon 04-28-2023 ALT [Catalytic activity/Vol] 40 U/L Normal 16-63 [facility] Comment on above: Performed By: #### C MP #### [facility] [address] [place] [address] Dr. Dwight Waters URINE T PROTEIN CREAT RATIOo n 04-28-2023 Protein (U) [Mass/Vol] 10.1 mg/dL Normal <=12.0 [facility] Comment on above: Performed By: #### U RTPCR #### [facility] [address] [place] [address] Dr. Dwight Waters UR PROT CREAT RAT 0.[address] [facility] Comment on above: Performed By: #### U RTPCR #### [facility] [address] [place] [address] Dr. Dwight Waters URINE CREAT 74.40 mg/dL Normal 20.00-300.00 [facility] Comment on above: Performed By: #### U RTPCR #### [facility] [address] [place] [address] Dr. Dwight Waters Office Visiton 04-13-2023 Follow-up visit [id number] George Styles 1970 M Date Provider Department Center 04/13/2023 MIGUEL PARADA [facility] Family History Problem Relation Age of Onset Coronary artery disease Mother Coronary artery disease Father Family Status - Relation Status Age at Mother Father Level of Service:95142 [place] OFFICE/OUTPATIENT ESTABLISHED LOW MDM 20-29 MIN Reason for Visit and Comments: Hypertension [594427] Hyperlipidemia [182] Normal [facility] BK VIRUS PCR QUANTon 023 BKV DNA QUANT PCR PLASMA Negative Normal Negative [facility] Comment on above: Result Comment: No B K DNA detected. . The linear range of the assay is 22 - 100,000,000 IU/mL. Performed By: #### B KVIRUS #### [facility] [address] [place] [address] Dr. Dwight Waters Log10 BKV DNA Plasma Normal [facility] Comment on above: Performed By: #### B KVIRUS #### [facility] [address] [place] [address] Dr. Dwight Waters FK506 (TACROLIMUS) WHOLE BLO ODon 03-04-2023 Tacrolimus (FK506), Blood 5.9 ng/mL Normal 2.0-20.0 [facility] Comment on above: Result Comment: Trou gh (immediately following transplant) 15.0 . Trough (steady state, 2 weeks or more after transplant): 3.0 - 8.0 . Performed by LC-MS/MS technology. Performed By: #### C MP #### [facility] [address] [place] [address] Dr. Dwight Waters ALBUMINon 03-02-2023 Albumin [Mass/Vol] 3.9 g/dL Normal 3.4-5.0 [facility] Comment on above: Performed By: #### U RTPCR #### [facility] [address] [place] [address] Dr. Dwight Waters ALKALINE PHOSPHAon ALP [Catalytic activity/Vol] 105 U/L Normal 46-116 [facility] Comment on above: Performed By: #### U RTPCR #### [facility] [address] [place] [address] Dr. Dwight Waters BILIRUBIN CONJUGATED (DIRECT )on 03-02-2023 BILI, CONJUGATED 0.2 mg/dL Normal 0.0-0.2 [facility] Comment on above: Performed By: #### U RTPCR #### [facility] [address] [place] [address] Dr. Dwight Waters BILIRUBIN TOTALon 03-02-2023 Bilirubin [Mass/Vol] 0.9 mg/dL Normal 0.2-1.0 [facility] Comment on above: Performed By: #### U RTPCR #### [facility] [address] [place] [address] Dr. Dwight Waters CBC AUTO DIFFon 03-02-2023 BASO # 0.1 103/ul Normal 0.0-0.1 [facility] Comment on above: Performed By: #### C BC #### [facility] [address] [place] [address] Dr. Dwight Waters Basophils/100 WBC (Bld) 0.9 % Normal 0.2-2.0 [facility] Comment on above: Performed By: #### C BC #### [facility] [address] [place] [address] Dr. Dwight Waters EO # 0.2 103/ul Normal 0.0-0.[address] [facility] Comment on above: Performed By: #### C BC #### [facility] [address] [place] [address] Dr. Dwight Waters Eosinophils/100 WBC (Bld) 3.5 % Normal 0.9-7.0 [facility] Comment on above: Performed By: #### C BC #### [facility] [address] [place] [address] Dr. Dwight Waters Erythrocyte distribution width (RBC) [Ratio] 12.7 % Normal 11.0-15.[address] [facility] Comment on above: Performed By: #### C BC #### [facility] [address] [place] [address] Dr. Dwight Waters Hematocrit (Bld) [Volume fraction] 48.2 % Normal 42.0-54.[address] [facility] Comment on above: Performed By: #### C BC #### [facility] [address] [place] [address] Dr. Dwight Waters Hemoglobin (Bld) [Mass/Vol] 15.9 g/dL Normal 14.0-18.[address] [facility] Comment on above: Performed By: #### C BC #### [facility] [address] [place] [address] Dr. Dwight Waters IG # 0.01 10e3/ul Normal 0.00-0.03 [facility] Comment on above: Performed By: #### C BC #### [facility] [address] [place] [address] Dr. Dwight Waters IG % 0.2 % Normal 0.0-0.5 [facility] Comment on above: Performed By: #### C BC #### [facility] [address] [place] [address] Dr. Dwight Waters LYMPH # 2.1 103/ul Normal 1.2-3.8 [facility] Comment on above: Performed By: #### C BC #### [facility] [address] [place] [address] Dr. Dwight Waters Lymphocytes/100 WBC (Bld) 37.4 % Normal 20.5-60.0 [facility] Comment on above: Performed By: #### C BC #### [facility] [address] [place] [address] Dr. Dwight Waters MANUAL DIFF REQ NO Normal [facility] Comment on above: Performed By: #### C BC #### [facility] [address] [place] [address] Dr. Dwight Waters MCH (RBC) [Entitic mass] 28.3 pg Normal 25.9-34.0 [facility] Comment on above: Performed By: #### C BC #### [facility] [address] [place] [address] Dr. Dwight Waters MCHC (RBC) [Mass/Vol] 33.0 g/dL Normal 29.9-35.2 [facility] Comment on above: Performed By: #### C BC #### [facility] [address] [place] [address] Dr. Dwight Waters MCV (RBC) [Entitic vol] 85.8 fL Normal 80.0-94.0 [facility] Comment on above: Performed By: #### C BC #### [facility] [address] [address] [address] Dwight Waters MONO # 0.6 103/ul Normal 0.3-0.[address] [facility] Comment on above: Performed By: #### C BC #### [facility] [address] [place] [address] Dr. Dwight Waters Monocytes/100 WBC (Bld) 10.2 % Normal 1.7-12.[address] [facility] Comment on above: Performed By: #### C BC #### [facility] [address] [place] [address] Dr. Dwight Waters NEUT # 2.7 103/ul Normal 1.4-6.[address] [facility] Comment on above: Performed By: #### C BC #### [facility] [address] [place] [address] Dr. Dwight Waters Neutrophils/100 WBC (Bld) 47.8 % Normal 43.0-75.[address] [facility] Comment on above: Performed By: #### C BC #### [facility] [address] [place] [address] Dr. Dwight Waters Platelet mean volume (Bld) [Entitic vol] 9.3 fL Critically low 9.5-13.[address] [facility] Comment on above: Performed By: #### C BC #### [facility] [address] [place] [address] Dr. Dwight Waters PLT 241 103/ul Normal 150-[address] [facility] Comment on above: Performed By: #### C BC #### [facility] [address] [place] [address] Dr. Dwight Waters RBC 5.62 106/ul Normal 4.70-6.[address] [facility] Comment on above: Performed By: #### C BC #### [facility] [address] [place] [address] Dr. Dwight Waters WBC 5.7 103/ul Normal 4.0-11.[address] [facility] Comment on above: Performed By: #### C BC #### [facility] [address] [place] [address] Dr. Dwight Waters GGTon 03-02-2023 Gamma glutamyl transferase [Catalytic activity/Vol] 25 U/L Normal 15-85 [facility] [facility] Comment on above: Performed By: #### U RTPCR #### [facility] [address] [place] [address] Dr. Dwight Waters MAGNESIUMon 03-02-2023 Magnesium [Mass/Vol] 1.6 mg/dL Critically low 1.8-2.[address] [facility] Comment on above: Performed By: #### U RTPCR #### [facility] [address] [place] [address] Dr. Dwight Waters PHOSPHORUSon 03-02-2023 Phosphate [Mass/Vol] 3.6 mg/dL Normal 2.6-4.[address] [facility] Comment on above: Performed By: #### U RTPCR #### [facility] [address] [place] [address] Dr. Dwight Waters PROF CHEM 8 (BAS METB)on Anion gap [Moles/Vol] 9.4 mmol/L Normal [facility] Comment on above: Performed By: #### U RTPCR #### [facility] [address] [place] [address] Dr. Dwight Waters Calcium [Mass/Vol] 9.3 mg/dL Normal 8.5-10.[address] [facility] Comment on above: Performed By: #### U RTPCR #### [facility] [address] [place] [address] Dr. Dwight Waters Chloride [Moles/Vol] 108 mmol/L Critically high 98-[address] [facility] Comment on above: Performed By: #### U RTPCR #### [facility] [address] [place] [address] Dr. Dwight Waters CO2 [Moles/Vol] 27.2 mmol/L Normal 21.0-32.[address] [facility] Comment on above: Performed By: #### U RTPCR #### [facility] [address] [place] [address] Dr. Dwight Watres Creatinine [Mass/Vol] 1.12 mg/dL Normal 0.70-1.[address] [facility] Comment on above: Performed By: #### U RTPCR #### [facility] [address] [address] [address] Dwight Waters EGFR-AF MONEGASQUE >60 Normal >=60 [facility] Comment on above: Performed By: #### U RTPCR #### [facility] [address] [address] [address] Dwight Waters EGFR-NON AF MONEGASQUE >60 Normal >=60 [facility] Comment on above: Performed By: #### U RTPCR #### [facility] [address] [address] [address] Dwight Waters Glucose [Mass/Vol] 113 mg/dL Critically high 74-106 [facility] Comment on above: Performed By: #### U RTPCR #### [facility] [address] [address] [address] Dwight Waters Potassium [Moles/Vol] 3.6 mmol/L Normal 3.5-5.1 [facility] Comment on above: Performed By: #### U RTPCR #### [facility] [address] [address] [address] Dwight Waters Sodium [Moles/Vol] 141 mmol/L Normal 136-145 [facility] Comment on above: Performed By: #### U RTPCR #### [facility] [address] [address] [address] Dwight Waters Urea nitrogen [Mass/Vol] 14.0 mg/dL Normal 7.0-18.0 [facility] Comment on above: Performed By: #### U RTPCR #### [facility] [address] [address] [address] Dwight Waters Urea nitrogen/Creatinine [Mass ratio] 12.5 mg/mg Normal [facility] Comment on above: Performed By: #### U RTPCR #### [facility] [address] [address] [address] Dwight Waetrs SGOTon 03-02-2023 AST [Catalytic activity/Vol] 20 U/L Normal 15-37 [facility] Comment on above: Performed By: #### U RTPCR #### [facility] [address] [place] [address] Dr. Dwight Waters SGPTon 03-02-2023 ALT [Catalytic activity/Vol] 30 U/L Normal 16-63 [facility] Comment on above: Performed By: #### U RTPCR #### [facility] [address] [place] [address] Dr. Dwight Waters URINE T PROTEIN CREAT RATIOo n 03-02-2023 Protein (U) [Mass/Vol] 10.3 mg/dL Normal <=12.0 [facility] Comment on above: Performed By: #### U RTPCR #### [facility] [address] [place] [address] Dr. Dwight Waters UR PROT CREAT RAT 0.[address] [facility] Comment on above: Performed By: #### U RTPCR #### [facility] [address] [place] [address] Dr. Dwight Waters URINE CREAT 68.96 mg/dL Normal 20.00-300.00 [facility] Comment on above: Performed By: #### U RTPCR #### [facility] [address] [place] [address] Dr. Dwight Waters BK VIRUS PCR QUANTon 023 BKV DNA QUANT PCR PLASMA Negative Normal Negative [facility] Comment on above: Result Comment: No B K DNA detected. . The linear range of the assay is 22 - 100,000,000 IU/mL. Performed By: #### C MP #### [facility] [address] [place] [address] Dr. Dwight Waters Log10 BKV DNA Plasma Normal [facility] Comment on above: Performed By: #### C MP #### [facility] [address] [place] [address] Dr. Dwight Waters FK506 (TACROLIMUS) WHOLE BLO ODon 12-31-2022 Tacrolimus (FK506), Blood 5.6 ng/mL Normal 2.0-20.0 [facility] Comment on above: Result Comment: Trou gh (immediately following transplant) 15.0 . Trough (steady state, 2 weeks or more after transplant): 3.0 - 8.0 . Performed by LC-MS/MS technology. Performed By: #### C MP #### [facility] [address] [place] [address] Dr. Dwight Waters ALKALINE PHOSPHAon ALP [Catalytic activity/Vol] 96 U/L Normal 46-116 [facility] Comment on above: Performed By: #### C BC #### [facility] [address] [place] [address] Dr. Dwight Waters BILIRUBIN CONJUGATED (DIRECT )on 12-29-2022 BILI, CONJUGATED 0.3 mg/dL Critically high 0.0-0.2 [facility] Comment on above: Performed By: #### C BC #### [facility] [address] [place] [address] Dr. Dwight Waters BILIRUBIN TOTALon 12-29-2022 Bilirubin [Mass/Vol] 1.1 mg/dL Critically high 0.2-1.0 [facility] Comment on above: Performed By: #### C BC #### [facility] [address] [place] [address] Dr. Dwight Waters CBC AUTO DIFFon 12-29-2022 BASO # 0.1 103/ul Normal 0.0-0.1 [facility] Comment on above: Performed By: #### C MP #### [facility] [address] [place] [address] Dr. Dwight Waters Basophils/100 WBC (Bld) 0.8 % Normal 0.2-2.0 [facility] Comment on above: Performed By: #### C MP #### [facility] [address] [place] [address] Dr. Dwight Waters EO # 0.2 103/ul Normal 0.0-0.7 [facility] Comment on above: Performed By: #### C MP #### [facility] [address] [place] [address] Dr. Dwight Waters Eosinophils/100 WBC (Bld) 3.0 % Normal 0.9-7.0 [facility] Comment on above: Performed By: #### C MP #### [facility] [address] [place] [address] Dr. Dwight Waters Erythrocyte distribution width (RBC) [Ratio] 12.9 % Normal 11.0-15.0 [facility] Comment on above: Performed By: #### C MP #### [facility] [address] [place] [address] Dr. Dwight Waters Hematocrit (Bld) [Volume fraction] 46.9 % Normal 42.0-54.0 [facility] Comment on above: Performed By: #### C MP #### [facility] [address] [place] [address] Dr. Dwight Waters Hemoglobin (Bld) [Mass/Vol] 16.1 g/dL Normal 14.0-18.[address] [facility] Comment on above: Performed By: #### C MP #### [facility] [address] [place] [address] Dr. Dwight Waters IG # 0.01 10e3/ul Normal 0.00-0.03 [facility] Comment on above: Performed By: #### C MP #### [facility] [address] [place] [address] Dr. Dwight Waters IG % 0.2 % Normal 0.0-0.5 [facility] Comment on above: Performed By: #### C MP #### [facility] [address] [place] [address] Dr. Dwight Waters LYMPH # 1.8 103/ul Normal 1.2-3.[address] [facility] Comment on above: Performed By: #### C MP #### [facility] [address] [place] [address] Dr. Dwight Waters Lymphocytes/100 WBC (Bld) 27.9 % Normal 20.5-60.0 [facility] Comment on above: Performed By: #### C MP #### [facility] [address] [place] [address] Dr. Dwight Waters MANUAL DIFF REQ NO Normal [facility] Comment on above: Performed By: #### C MP #### [facility] [address] [place] [address] Dr. Dwight Waters MCH (RBC) [Entitic mass] 28.5 pg Normal 25.9-34.0 [facility] Comment on above: Performed By: #### C MP #### [facility] [address] [place] [address] Dr. Dwight Waters MCHC (RBC) [Mass/Vol] 34.3 g/dL Normal 29.9-35.2 [facility] Comment on above: Performed By: #### C MP #### [facility] [address] [place] [address] Dr. Dwight Waters MCV (RBC) [Entitic vol] 83.2 fL Normal 80.0-94.[address] [facility] Comment on above: Performed By: #### C MP #### [facility] [address] [place] [address] Dr. Dwight Waters MONO # 0.5 103/ul Normal 0.3-0.[address] [facility] Comment on above: Performed By: #### C MP #### [facility] [address] [place] [address] Dr. Dwight Waters Monocytes/100 WBC (Bld) 8.1 % Normal 1.7-12.0 [facility] Comment on above: Performed By: #### C MP #### [facility] [address] [place] [address] Dr. Dwight Waters NEUT # 3.8 103/ul Normal 1.4-6.[address] [facility] Comment on above: Performed By: #### C MP #### [facility] [address] [place] [address] Dr. Dwight Waters Neutrophils/100 WBC (Bld) 60.0 % Normal 43.0-75.[address] [facility] Comment on above: Performed By: #### C MP #### [facility] [address] [place] [address] Dr. Dwight Waters Platelet mean volume (Bld) [Entitic vol] 9.2 fL Critically low 9.5-13.5 [facility] Comment on above: Performed By: #### C MP #### [facility] [address] [place] [address] Dr. Dwight Waters PLT 225 103/ul Normal 150-[address] [facility] Comment on above: Performed By: #### C MP #### [facility] [address] [place] [address] Dr. Dwight Waters RBC 5.64 106/ul Normal 4.70-6.[address] [facility] Comment on above: Performed By: #### C MP #### [facility] [address] [place] [address] Dr. Dwight Waters WBC 6.3 103/ul Normal 4.0-11.[address] [facility] Comment on above: Performed By: #### C MP #### [facility] [address] [place] [address] Dr. Dwight Waters GGTon 12-29-2022 Gamma glutamyl transferase [Catalytic activity/Vol] 24 U/L Normal 15-85 [facility] Comment on above: Performed By: #### C MP #### [facility] [address] [place] [address] Dr. Dwight Waters LIPID PROFILEon 12-29-2022 CHOL-HDL RATIO NORM SEE BELOW Normal [facility] Comment on above: Result Comment: 3.3 - 4.4 LOW RISK 4.4 - 7.1 AVERAGE RISK 7.1 - 11.0 MODERATE RISK >11.0 HIGH RISK Performed By: #### U RTPCR #### [facility] [address] [place] [address] Dr. Dwight Waters Cholesterol [Mass/Vol] 87 mg/dL Normal <=[address] [facility] Comment on above: Performed By: #### U RTPCR #### [facility] [address] [place] [address] Dr. Dwight Waters Cholesterol in HDL [Mass/Vol] 44 mg/dL Normal 40-[address] [facility] Comment on above: Performed By: #### U RTPCR #### [facility] [address] [place] [address] Dr. Dwight Waters Cholesterol in LDL [Mass/Vol] 33.0 mg/dL Normal [facility] Comment on above: Performed By: #### U RTPCR #### [facility] [address] [place], [place] [id number] Dr. Dwight Waters Cholesterol.total/Ch olesterol in HDL [Mass ratio] 2.0 {ratio} Normal [facility] Comment on above: Performed By: #### U RTPCR #### [facility] [address] [place] [address] Dr. Dwight Waters HDL NORMAL > or = 60 mg/dl - LO W CARDIOVASCULAR RISK <40 mg/dl - HIGH CARDIOVASCULAR RISK Normal [facility] Comment on above: Performed By: #### U RTPCR #### [facility] [address] [place] [address] Dr. Dwight Waters LDL CALC NORMAL SEE BELOW Normal [facility] Comment on above: Result Comment: <100 mg/dl OPTIMAL 100 - 129 mg/dl NEAR OR ABOVE OPTIMAL 130 - 159 mg/dl BORDERLINE HIGH 160 - 189 mg/dl HIGH >190 mg/dl VERY HIGH Performed By: #### U RTPCR #### [facility] [address] [place] [address] Dr. Dwight Waters Triglyceride [Mass/Vol] 50 mg/dL Normal <=150 [facility] Comment on above: Performed By: #### U RTPCR #### [facility] [address] [place] [address] Dr. Dwight Waters VLDL CALC 10.0 mg/dL Normal [facility] Comment on above: Performed By: #### U RTPCR #### [facility] [address] [place] [address] Dr. Dwight Waters MAGNESIUMon 12-29-2022 Magnesium [Mass/Vol] 1.6 mg/dL Critically low 1.8-2.4 [facility] Comment on above: Performed By: #### C BC #### [facility] [address] [place] [address] Dr. Dwight Waters RENAL FUNCTION PANELon 12-29 Albumin [Mass/Vol] 3.9 g/dL Normal 3.4-5.0 [facility] Comment on above: Performed By: #### C BC #### [facility] [address] [place] [address] Dr. Dwight Waters Calcium [Mass/Vol] 9.2 mg/dL Normal 8.5-10.1 [facility] Comment on above: Performed By: #### C BC #### [facility] [address] [place] [address] Dr. Dwight Waters Chloride [Moles/Vol] 109 mmol/L Critically high 98-107 [facility] Comment on above: Performed By: #### C BC #### [facility] [address] [place] [address] Dr. Dwight Waters CO2 [Moles/Vol] 27.0 mmol/L Normal 21.0-32.0 [facility] Comment on above: Performed By: #### C BC #### [facility] [address] [place] [address] Dr. Dwight Waters Creatinine [Mass/Vol] 1.02 mg/dL Normal 0.70-1.30 [facility] Comment on above: Performed By: #### C BC #### [facility] [address] [place] [address] Dr. Dwight Waters EGFR-AF MONEGASQUE >60 Normal >=60 [facility] Comment on above: Performed By: #### C BC #### [facility] [address] [place] [address] Dr. Dwight Waters EGFR-NON AF MONEGASQUE >60 Normal >=60 [facility] Comment on above: Performed By: #### C BC #### [facility] [address] [place] [address] Dr. Dwight Waters Glucose [Mass/Vol] 117 mg/dL Critically high 74-106 [facility] Comment on above: Performed By: #### C BC #### [facility] [address] [place] [address] Dr. Dwight Waters Phosphate [Mass/Vol] 3.2 mg/dL Normal 2.6-4.7 [facility] Comment on above: Performed By: #### C BC #### [facility] [address] [place] [address] Dr. Dwight Waters Potassium [Moles/Vol] 4.1 mmol/L Normal 3.5-5.1 [facility] Comment on above: Performed By: #### C BC #### [facility] [address] [place] [address] Dr. Dwight Waters Sodium [Moles/Vol] 144 mmol/L Normal 136-145 [facility] Comment on above: Performed By: #### C BC #### [facility] [address] [place] [address] Dr. Dwight Waters Urea nitrogen [Mass/Vol] 13.0 mg/dL Normal 7.0-18.0 [facility] Comment on above: Performed By: #### C BC #### [facility] [address] [place] [address] Dr. Dwight Waters SGOTon 12-29-2022 AST [Catalytic activity/Vol] 21 U/L Normal 15-37 [facility] Comment on above: Performed By: #### C BC #### [facility] [address] [place] [address] Dr. Dwight Waters SGPTon 12-29-2022 ALT [Catalytic activity/Vol] 32 U/L Normal 16-63 [facility] Comment on above: Performed By: #### C BC #### [facility] [address] [place] [address] Dr. Dwight Waters URINE T PROTEIN CREAT RATIOo n 12-29-2022 Protein (U) [Mass/Vol] 14.3 mg/dL Critically high <=12.0 [facility] Comment on above: Performed By: #### U RTPCR #### [facility] [address] [place] [address] Dr. Dwight Waters UR PROT CREAT RAT 0.[address] [facility] Comment on above: Performed By: #### U RTPCR #### [facility] [address] [place] [address] Dr. Dwight Waters URINE CREAT 86.58 mg/dL Normal 20.00-300.00 [facility] Comment on above: Performed By: #### U RTPCR #### [facility] [address] [place] [address] Dr. Dwight Waters FK506 (TACROLIMUS) WHOLE BLO ODon 11-06-2022 Tacrolimus (FK506), Blood 4.9 ng/mL Normal 2.0-20.[address] [facility] Comment on above: Result Comment: Trou gh (immediately following transplant) 15.0 . Trough (steady state, 2 weeks or more after transplant): 3.0 - 8.0 . Performed by LC-MS/MS technology. Performed By: #### U RTPCR #### [facility] [address] [place] [address] Dr. Dwight Waters ALKALINE PHOSPHAon ALP [Catalytic activity/Vol] 86 U/L Normal 46-[address] [facility] Comment on above: Performed By: #### U RTPCR #### [facility] [address] [place] [address] Dr. Dwight Waters BILIRUBIN CONJUGATED (DIRECT )on 11-04-2022 BILI, CONJUGATED 0.2 mg/dL Normal 0.0-0.[address] [facility] Comment on above: Performed By: #### U RTPCR #### [facility] [address] [place] [address] Dr. Dwight Waters BILIRUBIN TOTALon 11-04-2022 Bilirubin [Mass/Vol] 0.8 mg/dL Normal 0.2-1.[address] [facility] Comment on above: Performed By: #### U RTPCR #### [facility] [address] [place] [address] Dr. Dwight Waters CBC AUTO DIFFon 11-04-2022 BASO # 0.1 103/ul Normal 0.0-0.[address] [facility] Comment on above: Performed By: #### U RTPCR #### [facility] [address] [place] [address] Dr. Dwight Waters Basophils/100 WBC (Bld) 0.9 % Normal 0.2-2.[address] [facility] Comment on above: Performed By: #### U RTPCR #### [facility] [address] [place] [address] Dr. Dwight Waters EO # 0.2 103/ul Normal 0.0-0.[address] [facility] Comment on above: Performed By: #### U RTPCR #### [facility] [address] [place] [address] Dr. Dwight Waters Eosinophils/100 WBC (Bld) 3.7 % Normal 0.9-7.[address] [facility] Comment on above: Performed By: #### U RTPCR #### [facility] [address] [place] [address] Dr. Dwight Waters Erythrocyte distribution width (RBC) [Ratio] 12.9 % Normal 11.0-15.0 [facility] Comment on above: Performed By: #### U RTPCR #### [facility] [address] [place] [address] Dr. Dwight Waters Hematocrit (Bld) [Volume fraction] 48.3 % Normal 42.0-54.[address] [facility] Comment on above: Performed By: #### U RTPCR #### [facility] [address] [place] [address] Dr. Dwight Waters Hemoglobin (Bld) [Mass/Vol] 15.6 g/dL Normal 14.0-18.0 [facility] Comment on above: Performed By: #### U RTPCR #### [facility] [address] [place] [address] Dr. Dwight Waters IG # 0.01 10e3/ul Normal 0.00-0.03 [facility] Comment on above: Performed By: #### U RTPCR #### [facility] [address] [place] [address] Dr. Dwight Waters IG % 0.2 % Normal 0.0-0.[address] [facility] Comment on above: Performed By: #### U RTPCR #### [facility] [address] [place] [address] Dr. Dwight Waters LYMPH # 1.9 103/ul Normal 1.2-3.[address] [facility] Comment on above: Performed By: #### U RTPCR #### [facility] [address] [place] [address] Dr. Dwight Waters Lymphocytes/100 WBC (Bld) 33.0 % Normal 20.5-60.[address] [facility] Comment on above: Performed By: #### U RTPCR #### [facility] [address] [place] [address] Dr. Dwight Waters MANUAL DIFF REQ NO Normal [facility] Comment on above: Performed By: #### U RTPCR #### [facility] [address] [place] [address] Dr. Dwight Waters MCH (RBC) [Entitic mass] 27.6 pg Normal 25.9-34.[address] [facility] Comment on above: Performed By: #### U RTPCR #### [facility] [address] [place] [address] Dr. Dwight Waters MCHC (RBC) [Mass/Vol] 32.3 g/dL Normal 29.9-35.[address] [facility] Comment on above: Performed By: #### U RTPCR #### [facility] [address] [place] [address] Dr. Dwight Waters MCV (RBC) [Entitic vol] 85.5 fL Normal 80.0-94.[address] [facility] Comment on above: Performed By: #### U RTPCR #### [facility] [address] [place] [address] Dr. Dwight Waters MONO # 0.5 103/ul Normal 0.3-0.[address] [facility] Comment on above: Performed By: #### U RTPCR #### [facility] [address] [place] [address] Dr. Dwight Waters Monocytes/100 WBC (Bld) 8.8 % Normal 1.7-12.[address] [facility] Comment on above: Performed By: #### U RTPCR #### [facility] [address] [place] [address] Dr. Dwight Waters NEUT # 3.1 103/ul Normal 1.4-6.[address] [facility] Comment on above: Performed By: #### U RTPCR #### [facility] [address] [place] [address] Dr. Dwight Waters Neutrophils/100 WBC (Bld) 53.4 % Normal 43.0-75.[address] [facility] Comment on above: Performed By: #### U RTPCR #### [facility] [address] [address] [address] Dwight Waters Platelet mean volume (Bld) [Entitic vol] 9.2 fL Critically low 9.5-13.[address] [facility] Comment on above: Performed By: #### U RTPCR #### [facility] [address] [place] [address] Dr. Dwight Waters PLT 255 103/ul Normal 150-[address] [facility] Comment on above: Performed By: #### U RTPCR #### [facility] [address] [place] [address] Dr. Dwight Waters RBC 5.65 106/ul Normal 4.70-6.[address] [facility] Comment on above: Performed By: #### U RTPCR #### [facility] [address] [place] [address] Dr. Dwight Waters WBC 5.7 103/ul Normal 4.0-11.[address] [facility] Comment on above: Performed By: #### U RTPCR #### [facility] [address] [place] [address] Dr. Dwight Waters GGTon 11-04-2022 Gamma glutamyl transferase [Catalytic activity/Vol] 22 U/L Normal 15-[address] [facility] Comment on above: Performed By: #### U RTPCR #### [facility] [address] [place] [address] Dr. Dwight Waters MAGNESIUMon 11-04-2022 Magnesium [Mass/Vol] 1.8 mg/dL Normal 1.8-2.[address] [facility] Comment on above: Performed By: #### U RTPCR #### [facility] [address] [place] [address] Dr. Dwight Waters RENAL FUNCTION PANELon 11-04 Albumin [Mass/Vol] 3.8 g/dL Normal 3.4-5.[address] [facility] Comment on above: Performed By: #### U RTPCR #### [facility] [address] [place] [address] Dr. Dwight Waters Calcium [Mass/Vol] 9.3 mg/dL Normal 8.5-10.[address] [facility] Comment on above: Performed By: #### U RTPCR #### [facility] [address] [address] [address] Dwight Waters Chloride [Moles/Vol] 107 mmol/L Normal 98-[address] [facility] Comment on above: Performed By: #### U RTPCR #### [facility] [address] [address] [address] Dwight Waters CO2 [Moles/Vol] 29.2 mmol/L Normal 21.0-32.0 [facility] Comment on above: Performed By: #### U RTPCR #### [facility] [address] [address] [address] Dwight Waters Creatinine [Mass/Vol] 1.07 mg/dL Normal 0.70-1.30 [facility] Comment on above: Performed By: #### U RTPCR #### [facility] [address] [place] [address] Dr. Dwight Waters EGFR-AF MONEGASQUE >60 Normal >=[address] [facility] Comment on above: Performed By: #### U RTPCR #### [facility] [address] [place] [address] Dr. Dwight Waters EGFR-NON AF MONEGASQUE >60 Normal >=60 [facility] Comment on above: Performed By: #### U RTPCR #### [facility] [address] [address] [address] Dwight Waters Glucose [Mass/Vol] 106 mg/dL Normal 74-[address] [facility] Comment on above: Performed By: #### U RTPCR #### [facility] [address] [place] [address] Dr. Dwight Waters Phosphate [Mass/Vol] 2.8 mg/dL Normal 2.6-4.[address] [facility] Comment on above: Performed By: #### U RTPCR #### [facility] [address] [place] [address] Dr. Dwight Waters Potassium [Moles/Vol] 4.1 mmol/L Normal 3.5-5.[address] [facility] Comment on above: Performed By: #### U RTPCR #### [facility] [address] [place] [address] Dr. Dwight Waters Sodium [Moles/Vol] 143 mmol/L Normal 136-[address] [facility] Comment on above: Performed By: #### U RTPCR #### [facility] [address] [place] [address] Dr. Dwight Waters Urea nitrogen [Mass/Vol] 12.0 mg/dL Normal 7.0-18.0 [facility] Comment on above: Performed By: #### U RTPCR #### [facility] [address] [place] [address] Dr. Dwight Waters SGOTon 11-04-2022 AST [Catalytic activity/Vol] 19 U/L Normal 15-[address] [facility] Comment on above: Performed By: #### U RTPCR #### [facility] [address] [place] [address] Dr. Dwight Waters SGPTon 11-04-2022 ALT [Catalytic activity/Vol] 28 U/L Normal 16-63 [facility] Comment on above: Performed By: #### U RTPCR #### [facility] [address] [place] [address] Dr. Dwight Waters URINE T PROTEIN CREAT RATIOo n 11-04-2022 Protein (U) [Mass/Vol] 10.7 mg/dL Normal <=12.0 [facility] Comment on above: Performed By: #### U RTPCR #### [facility] [address] [place] [address] Dr. Dwight Waters UR PROT CREAT RAT 0.[address] [facility] Comment on above: Performed By: #### U RTPCR #### [facility] [address] [place] [address] Dr. Dwight Waters URINE CREAT 84.50 mg/dL Normal 20.00-300.00 [facility] Comment on above: Performed By: #### U RTPCR #### [facility] [address] [place] [address] Dr. Dwight Waters FK506 (TACROLIMUS) WHOLE BLO ODon 09-18-2022 Tacrolimus (FK506), Blood 4.6 ng/mL Normal 2.0-20.0 [facility] Comment on above: Result Comment: Trou gh (immediately following transplant) 15.0 . Trough (steady state, 2 weeks or more after transplant): 3.0 - 8.0 . Performed by LC-MS/MS technology. Performed By: #### U RTPCR #### [facility] [address] [place] [address] Dr. Dwight Waters BK VIRUS PCR QUANTon 022 BKV DNA QUANT PCR PLASMA Negative Normal Negative [facility] Comment on above: Result Comment: No B K DNA detected. . The linear range of the assay is 22 - 100,000,000 IU/mL. Performed By: #### U RTPCR #### [facility] [address] [place] [address] Dr. Dwight Waters Log10 BKV DNA Plasma Normal [facility] Comment on above: Performed By: #### U RTPCR #### [facility] [address] [place] [address] Dr. Dwight Waters ALKALINE PHOSPHAon ALP [Catalytic activity/Vol] 92 U/L Normal 46-[address] [facility] Comment on above: Performed By: #### U RTPCR #### [facility] [address] [place] [address] Dr. Dwight Waters BILIRUBIN CONJUGATED (DIRECT )on 09-15-2022 BILI, CONJUGATED 0.3 mg/dL Critically high 0.0-0.2 [facility] Comment on above: Performed By: #### U RTPCR #### [facility] [address] [place] [address] Dr. Dwight Waters BILIRUBIN TOTALon 09-15-2022 Bilirubin [Mass/Vol] 1.1 mg/dL Critically high 0.2-1.[address] [facility] Comment on above: Performed By: #### U RTPCR #### [facility] [address] [place] [address] Dr. Dwight Waters CBC AUTO DIFFon 09-15-2022 BASO # 0.1 103/ul Normal 0.0-0.1 [facility] Comment on above: Performed By: #### C BC #### [facility] [address] [place] [address] Dr. Dwight Waters Basophils/100 WBC (Bld) 0.8 % Normal 0.2-2.0 [facility] Comment on above: Performed By: #### C BC #### [facility] [address] [place] [address] Dr. Dwight Waters EO # 0.2 103/ul Normal 0.0-0.[address] [facility] Comment on above: Performed By: #### C BC #### [facility] [address] [place] [address] Dr. Dwight Waters Eosinophils/100 WBC (Bld) 3.5 % Normal 0.9-7.[address] [facility] Comment on above: Performed By: #### C BC #### [facility] [address] [place] [address] Dr. Dwight Waters Erythrocyte distribution width (RBC) [Ratio] 13.0 % Normal 11.0-15.0 [facility] Comment on above: Performed By: #### C BC #### [facility] [address] [place] [address] Dr. Dwight Waters Hematocrit (Bld) [Volume fraction] 50.0 % Normal 42.0-54.0 [facility] Comment on above: Performed By: #### C BC #### [facility] [address] [place] [address] Dr. Dwight Waters Hemoglobin (Bld) [Mass/Vol] 16.0 g/dL Normal 14.0-18.0 [facility] Comment on above: Performed By: #### C BC #### [facility] [address] [place] [address] Dr. Dwight Waters IG # 0.02 10e3/ul Normal 0.00-0.[address] [facility] Comment on above: Performed By: #### C BC #### [facility] [address] [place] [address] Dr. Dwight Waters IG % 0.3 % Normal 0.0-0.[address] [facility] Comment on above: Performed By: #### C BC #### [facility] [address] [place] [address] Dr. Dwight Waters LYMPH # 1.8 103/ul Normal 1.2-3.[address] [facility] Comment on above: Performed By: #### C BC #### [facility] [address] [place] [address] Dr. Dwight Waters Lymphocytes/100 WBC (Bld) 26.5 % Normal 20.5-60.0 [facility] Comment on above: Performed By: #### C BC #### [facility] [address] [place] [address] Dr. Dwight Waters MANUAL DIFF REQ NO Normal [facility] Comment on above: Performed By: #### C BC #### [facility] [address] [place] [address] Dr. Dwight Waters MCH (RBC) [Entitic mass] 28.1 pg Normal 25.9-34.0 [facility] Comment on above: Performed By: #### C BC #### [facility] [address] [place] [address] Dr. Dwight Waters MCHC (RBC) [Mass/Vol] 32.0 g/dL Normal 29.9-35.[address] [facility] Comment on above: Performed By: #### C BC #### [facility] [address] [place] [address] Dr. Dwight Waters MCV (RBC) [Entitic vol] 87.9 fL Normal 80.0-94.[address] [facility] Comment on above: Performed By: #### C BC #### [facility] [address] [place] [address] Dr. Dwight Waters MONO # 0.5 103/ul Normal 0.3-0.[address] [facility] Comment on above: Performed By: #### C BC #### [facility] [address] [place] [address] Dr. Dwight Waters Monocytes/100 WBC (Bld) 8.1 % Normal 1.7-12.0 [facility] Comment on above: Performed By: #### C BC #### [facility] [address] [place] [address] Dr. Dwight Waters NEUT # 4.0 103/ul Normal 1.4-6.[address] [facility] Comment on above: Performed By: #### C BC #### [facility] [address] [place] [address] Dr. Dwight Waters Neutrophils/100 WBC (Bld) 60.8 % Normal 43.0-75.0 [facility] Comment on above: Performed By: #### C BC #### [facility] [address] [place] [address] Dr. Dwight Waters Platelet mean volume (Bld) [Entitic vol] 9.4 fL Critically low 9.5-13.[address] [facility] Comment on above: Performed By: #### C BC #### [facility] [address] [place] [address] Dr. Dwight Waters PLT 265 103/ul Normal 150-[address] [facility] Comment on above: Performed By: #### C BC #### [facility] [address] [place] [address] Dr. Dwight Waters RBC 5.69 106/ul Normal 4.70-6.[address] [facility] Comment on above: Performed By: #### C BC #### [facility] [address] [place] [address] Dr. Dwight Waters WBC 6.6 103/ul Normal 4.0-11.[address] [facility] Comment on above: Performed By: #### C BC #### [facility] [address] [place] [address] Dr. Dwight Waters GGTon 09-15-2022 Gamma glutamyl transferase [Catalytic activity/Vol] 23 U/L Normal 15-[address] [facility] Comment on above: Performed By: #### U RTPCR #### [facility] [address] [place] [address] Dr. Dwight Waters MAGNESIUMon 09-15-2022 Magnesium [Mass/Vol] 1.8 mg/dL Normal 1.8-2.[address] [facility] Comment on above: Performed By: #### U RTPCR #### [facility] [address] [place] [address] Dr. Dwight Waters RENAL FUNCTION PANELon 09-15 Albumin [Mass/Vol] 4.1 g/dL Normal 3.4-5.0 [facility] Comment on above: Performed By: #### C BC #### [facility] [address] [address] [address] Dwight Waters Calcium [Mass/Vol] 9.3 mg/dL Normal 8.5-10.1 [facility] Comment on above: Performed By: #### C BC #### [facility] [address] [address] [address] Dwight Waters Chloride [Moles/Vol] 107 mmol/L Normal 98-107 [facility] Comment on above: Performed By: #### C BC #### [facility] [address] [place] [address] Dr. Dwight Waters CO2 [Moles/Vol] 25.6 mmol/L Normal 21.0-32.0 [facility] Comment on above: Performed By: #### C BC #### [facility] [address] [place] [address] Dr. Dwight Waters Creatinine [Mass/Vol] 1.01 mg/dL Normal 0.70-1.30 [facility] Comment on above: Performed By: #### C BC #### [facility] [address] [place] [address] Dr. Dwight Waters EGFR-AF MONEGASQUE >60 Normal >=60 [facility] Comment on above: Performed By: #### C BC #### [facility] [address] [place] [address] Dr. Dwight Waters EGFR-NON AF MONEGASQUE >60 Normal >=60 [facility] Comment on above: Performed By: #### C BC #### [facility] [address] [place] [address] Dr. Dwight Waters Glucose [Mass/Vol] 119 mg/dL Critically high 74-106 [facility] Comment on above: Performed By: #### C BC #### [facility] [address] [place] [address] Dr. Dwight Waters Phosphate [Mass/Vol] 2.8 mg/dL Normal 2.6-4.7 [facility] Comment on above: Performed By: #### C BC #### [facility] [address] [place] [address] Dr. Dwight Waters Potassium [Moles/Vol] 4.0 mmol/L Normal 3.5-5.1 [facility] Comment on above: Performed By: #### C BC #### [facility] [address] [place] [address] Dr. Dwight Waters Sodium [Moles/Vol] 141 mmol/L Normal 136-[address] [facility] Comment on above: Performed By: #### C BC #### [facility] [address] [place] [address] Dr. Dwight Waters Urea nitrogen [Mass/Vol] 15.0 mg/dL Normal 7.0-18.0 [facility] Comment on above: Performed By: #### C BC #### [facility] [address] [place] [address] Dr. Dwight Waters SGOTon 09-15-2022 AST [Catalytic activity/Vol] 18 U/L Normal 15-[address] [facility] Comment on above: Performed By: #### U RTPCR #### [facility] [address] [place] [address] Dr. Dwight Waters SGPTon 09-15-2022 ALT [Catalytic activity/Vol] 32 U/L Normal 16-[address] [facility] Comment on above: Performed By: #### C BC #### [facility] [address] [place] [address] Dr. Dwight Waters URINE T PROTEIN CREAT RATIOo n 09-15-2022 Protein (U) [Mass/Vol] 14.1 mg/dL Critically high <=12.[address] [facility] Comment on above: Performed By: #### U RTPCR #### [facility] [address] [place] [address] Dr. Dwight Waters UR PROT CREAT RAT 0.[address] [facility] Comment on above: Performed By: #### U RTPCR #### [facility] [address] [place], [place] [id number] Dr. Dwight Waters URINE CREAT 98.89 mg/dL Normal 20.00-300.[address] [facility] Comment on above: Performed By: #### U RTPCR #### [facility] [address] [place] [address] Dr. Dwight Waters US CAROTID ART BILon [...] MÓNICA JIMENEZ Date: 2022-08-28 13:[address] [facility] FK506 (TACROLIMUS) WHOLE BLO ODon 08-17-2022 Tacrolimus (FK506), Blood 9.9 ng/mL Normal 2.0-20.0 [facility] Comment on above: Result Comment: Trou gh (immediately following transplant) 15.0 . Trough (steady state, 2 weeks or more after transplant): 3.0 - 8.0 . Performed by LC-MS/MS technology. Performed By: #### F [id number] #### [facility] [address] [place] [address] Dr. Dwight Waters BK VIRUS PCR QUANTon 022 BKV DNA QUANT PCR PLASMA Negative Normal Negative [facility] Comment on above: Result Comment: No B K DNA detected. . The linear range of the assay is 22 - 100,000,000 IU/mL. Performed By: #### U RTPCR #### [facility] [address] [address] [address] Dwight Waters Log10 BKV DNA Plasma Normal [facility] Comment on above: Performed By: #### U RTPCR #### [facility] [address] [place] [address] Dr. Dwight Waters ALBUMINon 08-14-2022 Albumin [Mass/Vol] 4.2 g/dL Normal 3.4-5.0 [facility] Comment on above: Performed By: #### F [id number] #### [facility] [address] [place] [address] Dr. Dwight Waters ALKALINE PHOSPHAon ALP [Catalytic activity/Vol] 92 U/L Normal 46-[address] [facility] Comment on above: Performed By: #### C BC #### [facility] [address] [place] [address] Dr. Dwight Waters BILIRUBIN CONJUGATED (DIRECT )on 08-14-2022 BILI, CONJUGATED 0.3 mg/dL Critically high 0.0-0.[address] [facility] Comment on above: Performed By: #### F [id number] #### [facility] [address] [place] [address] Dr. Dwight Waters BILIRUBIN TOTALon 08-14-2022 Bilirubin [Mass/Vol] 1.5 mg/dL Critically high 0.2-1.[address] [facility] Comment on above: Performed By: #### F [id number] #### [facility] [address] [place] [address] Dr. Dwight Waters BUNon 08-14-2022 Urea nitrogen [Mass/Vol] 11.0 mg/dL Normal 7.0-18.[address] [facility] Comment on above: Performed By: #### C BC #### [facility] [address] [place] [address] Dr. Dwight Waters CALCIUMon 08-14-2022 Calcium [Mass/Vol] 9.4 mg/dL Normal 8.5-10.[address] [facility] Comment on above: Performed By: #### F [id number] #### [facility] [address] [place] [address] Dr. Dwight Waters CBC AUTO DIFFon 08-14-2022 BASO # 0.0 103/ul Normal 0.0-0.[address] [facility] Comment on above: Performed By: #### C MP #### [facility] [address] [place] [address] Dr. Dwight Waters Basophils/100 WBC (Bld) 0.5 % Normal 0.2-2.[address] [facility] Comment on above: Performed By: #### C MP #### [facility] [address] [address] [address] Dwight Waters EO # 0.2 103/ul Normal 0.0-0.7 [facility] Comment on above: Performed By: #### C MP #### [facility] [address] [address] [address] Dwight Waters Eosinophils/100 WBC (Bld) 2.6 % Normal 0.9-7.0 [facility] Comment on above: Performed By: #### C MP #### [facility] [address] [place] [address] Dr. Dwight Waters Erythrocyte distribution width (RBC) [Ratio] 13.1 % Normal 11.0-15.0 [facility] Comment on above: Performed By: #### C MP #### [facility] [address] [place] [address] Dr. Dwight Waters Hematocrit (Bld) [Volume fraction] 47.0 % Normal 42.0-54.0 [facility] Comment on above: Performed By: #### C MP #### [facility] [address] [place] [address] Dr. Dwight Waters Hemoglobin (Bld) [Mass/Vol] 15.3 g/dL Normal 14.0-18.0 [facility] Comment on above: Performed By: #### C MP #### [facility] [address] [place] [address] Dr. Dwight Waters IG # 0.01 10e3/ul Normal 0.00-0.03 [facility] Comment on above: Performed By: #### C MP #### [facility] [address] [address] [address] Dwight Waters IG % 0.1 % Normal 0.0-0.[address] [facility] Comment on above: Performed By: #### C MP #### [facility] [address] [place] [address] Dr. Dwight Waters LYMPH # 2.3 103/ul Normal 1.2-3.8 [facility] Comment on above: Performed By: #### C MP #### [facility] [address] [place] [address] Dr. Dwight Waters Lymphocytes/100 WBC (Bld) 29.8 % Normal 20.5-60.0 [facility] Comment on above: Performed By: #### C MP #### [facility] [address] [place] [address] Dr. Dwight Waters MANUAL DIFF REQ NO Normal [facility] Comment on above: Performed By: #### C MP #### [facility] [address] [place] [address] Dr. Dwight Waters MCH (RBC) [Entitic mass] 28.2 pg Normal 25.9-34.0 [facility] Comment on above: Performed By: #### C MP #### [facility] [address] [place] [address] Dr. Dwight Waters MCHC (RBC) [Mass/Vol] 32.6 g/dL Normal 29.9-35.2 [facility] Comment on above: Performed By: #### C MP #### [facility] [address] [place] [address] Dr. Dwight Waters MCV (RBC) [Entitic vol] 86.7 fL Normal 80.0-94.0 [facility] Comment on above: Performed By: #### C MP #### [facility] [address] [place] [address] Dr. Dwight Waters MONO # 0.7 103/ul Normal 0.3-0.[address] [facility] Comment on above: Performed By: #### C MP #### [facility] [address] [place] [address] Dr. Dwight Waters Monocytes/100 WBC (Bld) 8.5 % Normal 1.7-12.[address] [facility] Comment on above: Performed By: #### C MP #### [facility] [address] [place] [address] Dr. Dwight Waters NEUT # 4.5 103/ul Normal 1.4-6.[address] [facility] Comment on above: Performed By: #### C MP #### [facility] [address] [place] [address] Dr. Dwight Waters Neutrophils/100 WBC (Bld) 58.5 % Normal 43.0-75.[address] [facility] Comment on above: Performed By: #### C MP #### [facility] [address] [place] [address] Dr. Dwight Waters Platelet mean volume (Bld) [Entitic vol] 9.7 fL Normal 9.5-13.[address] [facility] Comment on above: Performed By: #### C MP #### [facility] [address] [place] [address] Dr. Dwight Waters PLT 266 103/ul Normal 150-[address] [facility] Comment on above: Performed By: #### C MP #### [facility] [address] [place] [address] Dr. Dwight Waters RBC 5.42 106/ul Normal 4.70-6.[address] [facility] Comment on above: Performed By: #### C MP #### [facility] [address] [place] [address] Dr. Dwight Waters WBC 7.6 103/ul Normal 4.0-11.[address] [facility] Comment on above: Performed By: #### C MP #### [facility] [address] [place] [address] Dr. Dwight Waters CHLORIDEon 08-14-2022 Chloride [Moles/Vol] 104 mmol/L Normal 98-[address] [facility] Comment on above: Performed By: #### C BC #### [facility] [address] [place] [address] Dr. Dwight Waters CO2on 08-14-2022 CO2 [Moles/Vol] 27.9 mmol/L Normal 21.0-32.[address] [facility] Comment on above: Performed By: #### C BC #### [facility] [address] [place] [address] Dr. Dwight Waters CREATININEon 08-14-2022 Creatinine [Mass/Vol] 1.08 mg/dL Normal 0.70-1.[address] [facility] Comment on above: Performed By: #### C BC #### [facility] [address] [address] [address] Dwight Waters EGFR-AF MONEGASQUE >60 Normal >=60 [facility] Comment on above: Performed By: #### C BC #### [facility] [address] [address] [address] Dwight Waters EGFR-NON AF MONEGASQUE >60 Normal >=60 [facility] Comment on above: Performed By: #### C BC #### [facility] [address] [address] [address] Dwight Waters GGTon 08-14-2022 Gamma glutamyl transferase [Catalytic activity/Vol] 24 U/L Normal 15-85 [facility] Comment on above: Performed By: #### F [id number] #### [facility] [address] [place] [address] Dr. Dwight Waters GLUCOSE BLOODon 08-14-2022 Glucose [Mass/Vol] 111 mg/dL Critically high 74-106 [facility] Comment on above: Performed By: #### C BC #### [facility] [address] [place] [address] Dr. Dwight Waters MAGNESIUMon 08-14-2022 Magnesium [Mass/Vol] 1.4 mg/dL Critically low 1.8-2.4 [facility] Comment on above: Performed By: #### C BC #### [facility] [address] [place] [address] Dr. Dwight Waters NAon 08-14-2022 Sodium [Moles/Vol] 140 mmol/L Normal 136-145 [facility] Comment on above: Performed By: #### F [id number] #### [facility] [address] [address] [address] Dwight Waters PHOSPHORUSon 08-14-2022 Phosphate [Mass/Vol] 3.1 mg/dL Normal 2.6-4.7 [facility] Comment on above: Performed By: #### C BC #### [facility] [address] [place] [address] Dr. Dwight Waters POTASSIUMon 08-14-2022 Potassium [Moles/Vol] 3.5 mmol/L Normal 3.5-5.1 [facility] Comment on above: Performed By: #### C BC #### [facility] [address] [place] [address] Dr. Dwight Waters SGOTon 08-14-2022 AST [Catalytic activity/Vol] 17 U/L Normal 15-37 [facility] Comment on above: Performed By: #### F [id number] #### [facility] [address] [place] [address] Dr. Dwight Waters SGPTon 08-14-2022 ALT [Catalytic activity/Vol] 22 U/L Normal 16-63 [facility] Comment on above: Performed By: #### F [id number] #### [facility] [address] [place] [address] Dr. Dwight Waters URINE T PROTEIN CREAT RATIOo n 08-14-2022 Protein (U) [Mass/Vol] 10.7 mg/dL Normal <=12.0 [facility] Comment on above: Performed By: #### F [id number] #### [facility] [facility] [address] [place] [address] Dr. Dwight Waters UR PROT CREAT RAT 0.[address] [facility] Comment on above: Performed By: #### F [id number] #### [facility] [address] [place] [address] Dr. Dwight Waters URINE CREAT 104.28 mg/dL Normal 20.00-300.00 [facility] Comment on above: Performed By: #### F [id number] #### [facility] [address] [place] [address] Dr. Dwight Waters NEPHROSTOMY TUBE REMOVALon 0 [...] [facility] Radiology Study observation (narrative) [facility] FK506 (TACROLIMUS) WHOLE BLO ODon 07-06-2022 Tacrolimus (FK506), Blood 9.5 ng/mL Normal 2.0-20.0 [facility] Comment on above: Result Comment: Trou gh (immediately following transplant) 15.0 . Trough (steady state, 2 weeks or more after transplant): 3.0 - 8.0 . Performed by LC-MS/MS technology. Performed By: #### C MP #### [facility] [address] [place] [address] Dr. Dwight Waters ALBUMINon 07-03-2022 Albumin [Mass/Vol] 3.7 g/dL Normal 3.4-5.0 [facility] Comment on above: Performed By: #### U RTPCR #### [facility] [address] [address] [address] Dwight Waters ALKALINE PHOSPHAon ALP [Catalytic activity/Vol] 76 U/L Normal 46-116 [facility] Comment on above: Performed By: #### U RTPCR #### [facility] [address] [place] [address] Dr. Dwight Waters BILIRUBIN CONJUGATED (DIRECT )on 07-03-2022 BILI, CONJUGATED 0.3 mg/dL Critically high 0.0-0.2 [facility] Comment on above: Performed By: #### C BC #### [facility] [address] [place] [address] Dr. Dwight Waters BILIRUBIN TOTALon 07-03-2022 Bilirubin [Mass/Vol] 1.4 mg/dL Critically high 0.2-1.[address] [facility] Comment on above: Performed By: #### C BC #### [facility] [address] [place] [address] Dr. Dwight Waters BUNon 07-03-2022 Urea nitrogen [Mass/Vol] 15.0 mg/dL Normal 7.0-18.[address] [facility] Comment on above: Performed By: #### C BC #### [facility] [address] [place] [address] Dr. Dwight Waters CALCIUMon 07-03-2022 Calcium [Mass/Vol] 9.4 mg/dL Normal 8.5-10.[address] [facility] Comment on above: Performed By: #### U RTPCR #### [facility] [address] [place] [address] Dr. Dwight Waters CBC AUTO DIFFon 07-03-2022 BASO # 0.0 103/ul Normal 0.0-0.1 [facility] Comment on above: Performed By: #### U RTPCR #### [facility] [address] [place] [address] Dr. Dwight Waters Basophils/100 WBC (Bld) 0.6 % Normal 0.2-2.[address] [facility] Comment on above: Performed By: #### U RTPCR #### [facility] [address] [place] [address] Dr. Dwight Waters EO # 0.2 103/ul Normal 0.0-0.[address] [facility] Comment on above: Performed By: #### U RTPCR #### [facility] [address] [place] [address] Dr. Dwight Waters Eosinophils/100 WBC (Bld) 3.5 % Normal 0.9-7.[address] [facility] Comment on above: Performed By: #### U RTPCR #### [facility] [address] [place] [address] Dr. Dwight Waters Erythrocyte distribution width (RBC) [Ratio] 12.9 % Normal 11.0-15.0 [facility] Comment on above: Performed By: #### U RTPCR #### [facility] [address] [place] [address] Dr. Dwight Waters Hematocrit (Bld) [Volume fraction] 44.2 % Normal 42.0-54.0 [facility] Comment on above: Performed By: #### U RTPCR #### [facility] [address] [place] [address] Dr. Dwight Waters Hemoglobin (Bld) [Mass/Vol] 14.6 g/dL Normal 14.0-18.0 [facility] Comment on above: Performed By: #### U RTPCR #### [facility] [address] [place] [address] Dr. Dwight Waters IG # 0.02 10e3/ul Normal 0.00-0.03 [facility] Comment on above: Performed By: #### U RTPCR #### [facility] [address] [place] [address] Dr. Dwight Waters IG % 0.3 % Normal 0.0-0.5 [facility] Comment on above: Performed By: #### U RTPCR #### [facility] [address] [place] [address] Dr. Dwight Waters LYMPH # 2.0 103/ul Normal 1.2-3.[address] [facility] Comment on above: Performed By: #### U RTPCR #### [facility] [address] [place] [address] Dr. Dwight Waters Lymphocytes/100 WBC (Bld) 28.4 % Normal 20.5-60.0 [facility] Comment on above: Performed By: #### U RTPCR #### [facility] [address] [place] [address] Dr. Dwight Waters MANUAL DIFF REQ NO Normal [facility] Comment on above: Performed By: #### U RTPCR #### [facility] [address] [place] [address] Dr. Dwight Waters MCH (RBC) [Entitic mass] 28.6 pg Normal 25.9-34.[address] [facility] Comment on above: Performed By: #### U RTPCR #### [facility] [address] [place] [address] Dr. Dwight Waters MCHC (RBC) [Mass/Vol] 33.0 g/dL Normal 29.9-35.[address] [facility] Comment on above: Performed By: #### U RTPCR #### [facility] [address] [place] [address] Dr. Dwight Waters MCV (RBC) [Entitic vol] 86.7 fL Normal 80.0-94.0 [facility] Comment on above: Performed By: #### U RTPCR #### [facility] [address] [place] [address] Dr. Dwight Waters MONO # 0.6 103/ul Normal 0.3-0.8 [facility] Comment on above: Performed By: #### U RTPCR #### [facility] [address] [place] [address] Dr. Dwight Waters Monocytes/100 WBC (Bld) 9.1 % Normal 1.7-12.0 [facility] Comment on above: Performed By: #### U RTPCR #### [facility] [address] [place] [address] Dr. Dwight Waters NEUT # 4.0 103/ul Normal 1.4-6.[address] [facility] Comment on above: Performed By: #### U RTPCR #### [facility] [address] [place] [address] Dr. Dwight Waters Neutrophils/100 WBC (Bld) 58.1 % Normal 43.0-75.[address] [facility] Comment on above: Performed By: #### U RTPCR #### [facility] [address] [place] [address] Dr. Dwight Waters Platelet mean volume (Bld) [Entitic vol] 9.5 fL Normal 9.5-13.[address] [facility] Comment on above: Performed By: #### U RTPCR #### [facility] [address] [address] [address] Dwight Waters PLT 292 103/ul Normal 150-[address] [facility] Comment on above: Performed By: #### U RTPCR #### [facility] [address] [place] [address] Dr. Dwight Waters RBC 5.10 106/ul Normal 4.70-6.[address] [facility] Comment on above: Performed By: #### U RTPCR #### [facility] [address] [place] [address] Dr. Dwight Waters WBC 6.9 103/ul Normal 4.0-11.0 [facility] Comment on above: Performed By: #### U RTPCR #### [facility] [address] [place] [address] Dr. Dwight Waters CHLORIDEon 07-03-2022 Chloride [Moles/Vol] 108 mmol/L Critically high 98-107 [facility] Comment on above: Performed By: #### C BC #### [facility] [address] [place] [address] Dr. Dwight Waters CO2on 07-03-2022 CO2 [Moles/Vol] 25.2 mmol/L Normal 21.0-32.0 [facility] Comment on above: Performed By: #### C BC #### [facility] [address] [place] [address] Dr. Dwight Waters CREATININEon 07-03-2022 Creatinine [Mass/Vol] 1.03 mg/dL Normal 0.70-1.30 [facility] Comment on above: Performed By: #### U RTPCR #### [facility] [address] [place] [address] Dr. Dwight Waters EGFR-AF MONEGASQUE >60 Normal >=[address] [facility] Comment on above: Performed By: #### U RTPCR #### [facility] [address] [place] [address] Dr. Dwight Waters EGFR-NON AF MONEGASQUE >60 Normal >=60 [facility] Comment on above: Performed By: #### U RTPCR #### [facility] [address] [place] [address] Dr. Dwight Waters GGTon 07-03-2022 Gamma glutamyl transferase [Catalytic activity/Vol] 31 U/L Normal 15-85 [facility] Comment on above: Performed By: #### U RTPCR #### [facility] [address] [place] [address] Dr. Dwight Waters GLUCOSE BLOODon 07-03-2022 Glucose [Mass/Vol] 119 mg/dL Critically high 74-106 [facility] Comment on above: Performed By: #### U RTPCR #### [facility] [address] [place] [address] Dr. Dwight Waters MAGNESIUMon 07-03-2022 Magnesium [Mass/Vol] 1.4 mg/dL Critically low 1.8-2.4 [facility] Comment on above: Performed By: #### C BC #### [facility] [address] [place] [address] Dr. Dwight Waters NAon 07-03-2022 Sodium [Moles/Vol] 142 mmol/L Normal 136-145 [facility] Comment on above: Performed By: #### C MP #### [facility] [address] [place] [address] Dr. Dwight Waters PHOSPHORUSon 07-03-2022 Phosphate [Mass/Vol] 3.4 mg/dL Normal 2.6-4.7 [facility] Comment on above: Performed By: #### C BC #### [facility] [address] [place] [address] Dr. Dwight Waters POTASSIUMon 07-03-2022 Potassium [Moles/Vol] 4.1 mmol/L Normal 3.5-5.1 [facility] Comment on above: Performed By: #### C BC #### [facility] [address] [place] [address] Dr. Dwight Waters SGOTon 07-03-2022 AST [Catalytic activity/Vol] 14 U/L Critically low 15-37 [facility] Comment on above: Performed By: #### C BC #### [facility] [address] [address] [address] [facility] ALT [Catalytic activity/Vol] 25 U/L Normal 16-63 [facility] Comment on above: Performed By: #### C #### [facility] [address] [address] [address] Dwight Waters US KIDNEYSon 07-03-2022 US KIDNEYS Ultrasound kidneys, bilateral HISTORY: Transplant of kidney , pain in the right lower quadrant COMPARISON: None. TECHNIQUE: Transabdominal ultrasound imaging of both kidneys was performed. FINDINGS: The [place] kidneys are diffusely echogenic and atrophic with cortical thinning. The right kidney measures 8.3 x 3.5 x 4.07 m and the left measures 9.9 x 3.8 x 3.6 cm. No hydronephrosis of the [place] kidneys. There is a renal transplant in [...] stone involving the renal transplant. 2. Atrophic [place] kidneys. 3. Normal bladder. Electronically authenticated by: ARCELIA PIZARRO Date: 2022-07-03 17:[address] [facility] CT Abdomen and Pelvis WO con traston 06-27-2022 IMPRESSION: 1. Both [place] kidneys are atrophic with improvement in right-sided [...] Adrenals: Adrenal glands are unremarkable. Kidneys: Both [place] kidneys are atrophic. Interval improvement in right [place] kidney hydronephrosis since May 15, 2022. Status [...] Adrenals: Adrenal glands are unremarkable. Kidneys: Both [place] kidneys are atrophic. Interval improvement in right [place] kidney hydronephrosis since May 15, 2022. Status [...] aggressive osseous lesions. IMPRESSION IMPRESSION: 1. Both [place] kidneys are atrophic with improvement in right-sided hydronephrosis since May 15, 2022. 2. 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 No hydronephrosis. No discrete perinephric collection. 3. Partially imaged postsurgical changes related to prior liver transplant. 4. The bladder is decompressed, limiting evaluation. [facility] Radiology Study observation (narrative) [facility] CT Abdomen and Pelvis WO con trastOrdered By: Gera Lu on 06-27-2022 [facility] Work Phone: CBC AUTO DIFFon 06-18-2022 BASO # 0.0 103/ul Normal 0.0-0.1 [facility] Comment on above: Performed By: #### U RTPCR #### [facility] [address] [address] [address] Dwight Waters Basophils/100 WBC (Bld) 0.5 % Normal 0.2-2.0 [facility] Comment on above: Performed By: #### U RTPCR #### [facility] [address] [address] [address] Dwight Waters EO # 0.2 103/ul Normal 0.0-0.7 [facility] Comment on above: Performed By: #### U RTPCR #### [facility] [address] [place] [address] Dr. Dwight Waters Eosinophils/100 WBC (Bld) 2.3 % Normal 0.9-7.0 [facility] Comment on above: Performed By: #### U RTPCR #### [facility] [address] [place] [address] Dr. Dwight Waters Erythrocyte distribution width (RBC) [Ratio] 12.9 % Normal 11.0-15.0 [facility] Comment on above: Performed By: #### U RTPCR #### [facility] [address] [place] [address] Dr. Dwight Waters Hematocrit (Bld) [Volume fraction] 41.2 % Critically low 42.0-54.0 [facility] Comment on above: Performed By: #### U RTPCR #### [facility] [address] [place] [address] Dr. Dwight Waters Hemoglobin (Bld) [Mass/Vol] 13.3 g/dL Critically low 14.0-18.0 [facility] Comment on above: Performed By: #### U RTPCR #### [facility] [address] [place] [address] Dr. Dwight Waters IG # 0.04 10e3/ul Critically high 0.00-0.03 [facility] Comment on above: Performed By: #### U RTPCR #### [facility] [address] [place] [address] Dr. Dwight Waters IG % 0.5 % Normal 0.0-0.5 [facility] Comment on above: Performed By: #### U RTPCR #### [facility] [address] [place] [address] Dr. Dwight Waters LYMPH # 2.0 103/ul Normal 1.2-3.[address] [facility] Comment on above: Performed By: #### U RTPCR #### [facility] [address] [place] [address] Dr. Dwight Waters Lymphocytes/100 WBC (Bld) 22.9 % Normal 20.5-60.0 [facility] Comment on above: Performed By: #### U RTPCR #### [facility] [address] [place] [address] Dr. Dwight Waters MANUAL DIFF REQ NO Normal [facility] Comment on above: Performed By: #### U RTPCR #### [facility] [address] [place] [address] Dr. Dwight Waters MCH (RBC) [Entitic mass] 28.7 pg Normal 25.9-34.0 [facility] Comment on above: Performed By: #### U RTPCR #### [facility] [address] [place] [address] Dr. Dwight Waters MCHC (RBC) [Mass/Vol] 32.3 g/dL Normal 29.9-35.2 [facility] Comment on above: Performed By: #### U RTPCR #### [facility] [address] [place] [address] Dr. Dwight Waters MCV (RBC) [Entitic vol] 88.8 fL Normal 80.0-94.0 [facility] Comment on above: Performed By: #### U RTPCR #### [facility] [address] [place] [address] Dr. Dwight Waters MONO # 0.8 103/ul Normal 0.3-0.8 [facility] Comment on above: Performed By: #### U RTPCR #### [facility] [address] [place] [address] Dr. Dwight Waters Monocytes/100 WBC (Bld) 9.7 % Normal 1.7-12.0 [facility] Comment on above: Performed By: #### U RTPCR #### [facility] [address] [place] [address] Dr. Dwight Waters NEUT # 5.6 103/ul Normal 1.4-6.5 [facility] Comment on above: Performed By: #### U RTPCR #### [facility] [address] [address] [address] Dwight Waters Neutrophils/100 WBC (Bld) 64.1 % Normal 43.0-75.0 [facility] Comment on above: Performed By: #### U RTPCR #### [facility] [address] [address] [address] Dwight Waters Platelet mean volume (Bld) [Entitic vol] 10.0 fL Normal 9.5-13.[address] [facility] Comment on above: Performed By: #### U RTPCR #### [facility] [address] [place] [address] Dr. Dwight Waters PLT 270 103/ul Normal 150-[address] [facility] Comment on above: Performed By: #### U RTPCR #### [facility] [address] [place] [address] Dr. Dwight Waters RBC 4.64 106/ul Critically low 4.70-6.[address] [facility] Comment on above: Performed By: #### U RTPCR #### [facility] [address] [place] [address] Dr. Dwight Waters WBC 8.7 103/ul Normal 4.0-11.[address] [facility] Comment on above: Performed By: #### U RTPCR #### [facility] [address] [place] [address] Dr. Dwight Waters CULTURE URINEon 06-18-2022 CULTURE URINE Culture Observations : NO GROWTH. Normal [facility] Comment on above: Performed By: #### U RTPCR #### [facility] [address] [place] [address] Dr. Dwight Waters Covid-19 PCR (CVDTB)on 05-31 SARS-CoV-2 (COVID-19) RNA ESTELITA+probe Ql (Unsp spec) Not detected Normal NOT DETECTED [facility] Comment on above: Result Comment: When [...] for this test is supported by the [employer] and [employer] Service's declaration that [...] used). Performed By: #### C BC #### [facility] [address] [place] [address] Dr. Dwight Waters ER URINE PROFILEon 2 Bilirubin Ql (U) Negative Normal NEGATIVE [facility] Comment on above: Performed By: #### U RTPCR #### [facility] [address] [place] [address] Dr. Dwight Waters Clarity (U) CLEAR Normal CLEAR [facility] Comment on above: Performed By: #### U RTPCR #### [facility] [address] [place] [address] Dr. Dwight Waters Color (U) YELLOW Normal YELLOW [facility] Comment on above: Performed By: #### U RTPCR #### [facility] [address] [place] [address] Dr. Dwight Waters ERUAHD A micrscopic examina tion will be performed if indicated. Normal [facility] Comment on above: Performed By: #### U RTPCR #### [facility] [address] [place] [address] Dr. Dwight Waters Glucose Ql (U) Negative Normal NEGATIVE [facility] Comment on above: Performed By: #### U RTPCR #### [facility] [address] [place] [address] Dr. Dwight Waters Hemoglobin Ql (U) LARGE Abnormal NEGATIVE [facility] Comment on above: Performed By: #### U RTPCR #### [facility] [address] [place] [address] Dr. Dwight Waters Ketones Ql (U) Negative Normal NEGATIVE [facility] Comment on above: Performed By: #### U RTPCR #### [facility] [address] [place] [address] Dr. Dwight Waters LEUKOCYTES TRACE Abnormal NEGATIVE [facility] Comment on above: Performed By: #### U RTPCR #### [facility] [address] [place] [address] Dr. Dwight Waters Nitrite Ql (U) Negative Normal NEGATIVE [facility] Comment on above: Performed By: #### U RTPCR #### [facility] [address] [place] [address] Dr. Dwight Waters pH (U) 6.0 [pH] Normal 5-9 [facility] Comment on above: Performed By: #### U RTPCR #### [facility] [address] [place] [address] Dr. Dwight Waters Protein (U) [Mass/Vol] 30 mg/dL Abnormal NEGATIVE/ TRACE [facility] Comment on above: Performed By: #### U RTPCR #### [facility] [address] [place] [address] Dr. Dwight Waters SPEC GRAVITY >=1.030 Abnormal 1.005-<=1.[address] [facility] Comment on above: Performed By: #### U RTPCR #### [facility] [address] [place] [address] Dr. Dwight Waters UR MICRO IND INDICATED Normal [facility] Comment on above: Performed By: #### U RTPCR #### [facility] [address] [place] [address] Dr. Dwight Waters Urobilinogen Qn (U) 0.2 {Alyssa'U}/dL Normal 0.2 - 1. 0 [facility] Comment on above: Performed By: #### U RTPCR #### [facility] [address] [place] [address] Dr. Dwight Waters PROF 14(COMP METB)on 022 Albumin [Mass/Vol] 3.7 g/dL Normal 3.4-5.0 [facility] Comment on above: Performed By: #### C MP #### [facility] [address] [place] [address] Dr. Dwight Waters Albumin/Globulin [Mass ratio] 0.9 {ratio} Normal [facility] Comment on above: Performed By: #### C MP #### [facility] [address] [place] [address] Dr. Dwight Waters ALP [Catalytic activity/Vol] 80 U/L Normal 46-[address] [facility] Comment on above: Performed By: #### C MP #### [facility] [address] [place] [address] Dr. Dwight Waters ALT [Catalytic activity/Vol] 24 U/L Normal 16-63 [facility] Comment on above: Performed By: #### C MP #### [facility] [address] [place] [address] Dr. Dwight Waters Anion gap [Moles/Vol] 12.9 mmol/L Normal [facility] Comment on above: Performed By: #### C MP #### [facility] [address] [place] [address] Dr. Dwight Waters AST [Catalytic activity/Vol] 17 U/L Normal 15-37 [facility] Comment on above: Performed By: #### C MP #### [facility] [address] [place] [address] Dr. Dwight Waters Bilirubin [Mass/Vol] 0.8 mg/dL Normal 0.2-1.[address] [facility] Comment on above: Performed By: #### C MP #### [facility] [address] [place] [address] Dr. Dwight Waters Calcium [Mass/Vol] 9.4 mg/dL Normal 8.5-10.[address] [facility] Comment on above: Performed By: #### C MP #### [facility] [address] [place] [address] Dr. Dwight Waters Chloride [Moles/Vol] 106 mmol/L Normal 98-[address] [facility] Comment on above: Performed By: #### C MP #### [facility] [address] [address] [address] Dwight Waters CO2 [Moles/Vol] 25.3 mmol/L Normal 21.0-32.[address] [facility] Comment on above: Performed By: #### C MP #### [facility] [address] [address] [address] Dwight Waters Creatinine [Mass/Vol] 1.29 mg/dL Normal 0.70-1.[address] [facility] Comment on above: Performed By: #### C MP #### [facility] [address] [address] [address] Dwight Waters EGFR-AF MONEGASQUE >60 Normal >=[address] [facility] Comment on above: Performed By: #### C MP #### [facility] [address] [place] [address] Dr. Dwight Waters EGFR-NON AF MONEGASQUE 59 mL/min/1.73m2 Critically low >=[address] [facility] Comment on above: Performed By: #### C MP #### [facility] [address] [place] [address] Dr. Dwight Waters Globulin (S) [Mass/Vol] 4.2 g/dL Normal [facility] Comment on above: Performed By: #### C MP #### [facility] [address] [place] [address] Dr. Dwight Waters Glucose [Mass/Vol] 106 mg/dL Normal 74-[address] [facility] Comment on above: Performed By: #### C MP #### [facility] [address] [address] [address] Dwight Waters Potassium [Moles/Vol] 4.2 mmol/L Normal 3.5-5.[address] [facility] Comment on above: Performed By: #### C MP #### [facility] [address] [place] [address] Dr. Dwight Waters Protein [Mass/Vol] 7.9 g/dL Normal 6.4-8.[address] [facility] Comment on above: Performed By: #### C MP #### [facility] [address] [place] [address] Dr. Dwight Waters Sodium [Moles/Vol] 140 mmol/L Normal 136-[address] [facility] Comment on above: Performed By: #### C MP #### [facility] [address] [place] [address] Dr. Dwight Waters Urea nitrogen [Mass/Vol] 22.0 mg/dL Critically high 7.0-18.0 [facility] Comment on above: Performed By: #### C MP #### [facility] [address] [place] [address] Dr. Dwight Waters Urea nitrogen/Creatinine [Mass ratio] 17.1 mg/mg Normal [facility] Comment on above: Performed By: #### C MP #### [facility] [address] [place] [address] Dr. Dwight Waters URINE MICROSCOPIC ONLYon BACTERIA TRACE Abnormal NONE SEEN [facility] Comment on above: Performed By: #### U RTPCR #### [facility] [address] [place] [address] Dr. Dwight Waters Bacteria identified Cx Nom (U) INDICATED Normal [facility] Comment on above: Performed By: #### U RTPCR #### [facility] [address] [place] [address] Dr. Dwight Waters CAST NONE SEEN Normal NONE SEEN [facility] Comment on above: Performed By: #### U RTPCR #### [facility] [address] [place] [address] Dr. Dwight Waters Crystals LM Nom (Urine sed) NONE SEEN Normal NONE SEEN [facility] Comment on above: Performed By: #### U RTPCR #### [facility] [address] [place] [address] Dr. Dwight Waters Epithelial cells LM Ql (Urine sed) NONE SEEN Normal NONE SEEN /RARE [facility] Comment on above: Performed By: #### U RTPCR #### [facility] [address] [place] [address] Dr. Dwight Waters MUCOUS NONE SEEN Normal NONE SEEN [facility] Comment on above: Performed By: #### U RTPCR #### [facility] [address] [place] [address] Dr. Dwight Waters RBC 5-10 Abnormal 0-[address] [facility] Comment on above: Performed By: #### U RTPCR #### [facility] [address] [place] [address] Dr. Dwight Waters WBC 10-20 Abnormal NONE SEEN [facility] Comment on above: Performed By: #### U RTPCR #### [facility] [address] [place] [address] Dr. Dwight Waters ALLOSCREEN RECIPIENT (POST T X PRA)on 06-13-2022 AB SPECIFICITY CLASS COMMENT Antibody Specificity testing performed by [employer]. cPRA calculation based on identification of HLA antibody specificities at MFI >2000 and/or presence of CREG antibodies. [facility] Comment on above: Some of the reagents used for testing in the Clinical Histocompatibility Laboratory have yet to be approved by the FDA. Our certification by CLIA to perform high complexity tests allows us to use these reagents in the context of a stringent QC program, and obviates the need for FDA approval.Testing performed by the [facility] Clinical Histocompatibility Laboratory. [facility] number: [id number]. CLIA number: [id number], Director: Carlito Merchant, PhD, D([facility]). ANTIBODY SPECIFICITY INTERPRETATION Detected [facility] CLASS I SPECIFICITIES Not detected [facility] CLASS II SPECIFICITIES Not detected [facility] HLA Ab (S) 0 % 0 [facility] EXTRA MICROon 06-13-2022 [facility] URINE CULTUREOrdered By: Jah Upton on 06-13-2022 Bacteria identified Cx Nom (Unsp spec) Growth [facility] Bacteria identified Cx Nom (Unsp spec) 10,000-50,000 CFU/mL Mixed skin shimon [facility] Comment on above: Multiple bacterial m orphotypes present. Suggest appropriate recollection if clinically indicated. [facility] CBC,PLATELETSon 06-12-2022 Erythrocyte distribution width (RBC) [Ratio] 13.0 % 10.9 - 14.3 % [facility] Hematocrit (Bld) [Volume fraction] 43.2 % 39.6 - 48.8 % [facility] Hemoglobin (Bld) [Mass/Vol] 13.9 g/dL 13.4 - 16.8 g/dL [facility] Interpretation and review of laboratory results Normal [facility] MCH (RBC) [Entitic mass] 28.7 pg 26.1 - 33.3 pg [facility] MCHC (RBC) [Mass/Vol] 32.2 g/dL 31.9 - 36.5 g/dL [facility] MCV (RBC) [Entitic vol] 89.1 fL 79.0 - 94.5 fL [facility] Platelet mean volume (Bld) [Entitic vol] 10.5 fL 8.7 - 12.3 fL [facility] Platelets (Bld) [#/Vol] 269 10*3/uL 146 - 337 K/uL [facility] RBC (Bld) [#/Vol] 4.85 10*6/uL [facility] WBC (Bld) [#/Vol] 7.68 10*3/uL 3.73 - 10. 10 K/uL [facility] CHEM 7 (LYTES,BUN,CREA,GLUC) on 06-12-2022 Anion gap [Moles/Vol] 14 mmol/L 7 - 17 mmol/L [facility] Chloride [Moles/Vol] 106 mmol/L 98 - 10 8 mmol/L [facility] CO2 [Moles/Vol] 25 mmol/L 21 - 31 mmol/L [facility] Creatinine [Mass/Vol] 1.26 mg/dL 0.70 - 1.30 mg/dL [facility] GFR/1.73 sq M.predicted CKD-EPI (S/P/Bld) [Vol rate/Area] 69 >=60 mL/min/1.73m 2 [facility] Comment on above: Reported eGFR is bas ed on the CKD-EPI 2020 equation using creatinine, age, and sex. Glucose [Mass/Vol] 83 mg/dL 70 - 99 mg/dL [facility] Osmolality Calc [Osmolality] 295 [facility] Potassium [Moles/Vol] 3.8 mmol/L 3.5 - 5.0 mmol/L [facility] Sodium [Moles/Vol] 141 mmol/L 135 - 145 mmol/L [facility] Urea nitrogen [Mass/Vol] 18 mg/dL 7 - 25 mg/dL [facility] Urea nitrogen/Creatinine [Mass ratio] 14 mg/mg [facility] GGTon 06-12-2022 Gamma glutamyl transferase [Catalytic activity/Vol] 20 U/L 8 - 64 U/L [facility] HEMOGLOBIN [id number] By: Link Roche on 06-12-2022 Average glucose Estimated from glycated hemoglobin (Bld) [Mass/Vol] 126 mg/dL [facility] HbA1c (Bld) [Mass fraction] 6.0 % High 4.7 - 5.6 % [facility] Interpretation and review of laboratory results Abnormal [facility] HEPATIC FUNCTION PANELon Albumin [Mass/Vol] 4.3 g/dL 3.5 - 5.0 g/dL [facility] ALP [Catalytic activity/Vol] 78 U/L 32 - 126 U/L [facility] ALT [Catalytic activity/Vol] 12 U/L 10 - 52 U/L [facility] AST [Catalytic activity/Vol] 16 U/L 10 - 39 U/L [facility] Bilirubin [Mass/Vol] 1.0 mg/dL <1.5 [facility] Bilirubin.direct [Mass/Vol] 0.2 mg/dL <0.3 [facility] Protein [Mass/Vol] 7.5 g/dL 6.4 - 8.3 g/dL [facility] No Panel Informationon 06-12 Interpretation and review of laboratory results Normal [facility] PTH INTACTOrdered By: Marli Lizarraga on 06-12-2022 Interpretation and review of laboratory results Abnormal [facility] Parathyrin.intact [Mass/Vol] 79.7 pg/mL High 14.0 - 72.0 pg/mL [facility] TO CULTURE PERFORMABLEon 06-12-2022 Appearance (U) Clear Clear [facility] Bacteria LM Ql (Urine sed) ABSENT ABSENT [facility] Color (U) Yellow Yellow [facility] Epithelial cells.squamous LM Ql (Urine sed) 1/hpf = 1+ 1/hpf = 1+, 2-5/hpf = 2+, 0/hpf = 0+, ABSENT [facility] Glucose Test strip (U) [Mass/Vol] Negative Negative [facility] Interpretation and review of laboratory results Abnormal [facility] Ketones (U) [Mass/Vol] Trace Abnormal Negative [facility] Leukocyte esterase Test strip Ql (U) Small Abnormal Negative [facility] Nitrite Ql (U) Negative Negative [facility] pH (U) 5.5 [pH] 5.0 - 7.[address] [facility] Protein (U) [Mass/Vol] 30 mg/dL Abnormal Negative [facility] RBC (U) [#/Vol] Trace Abnormal Negative [facility] RBC LM.HPF (Urine sed) [#/Area] 0-2 0 - 2 /HPF [facility] Specific gravity (U) [Rel density] 1.026 [facility] Urobilinogen (U) [Mass/Vol] 0.2 E.U./dL 0.2 E.U/dL, 1.0 E.U/dL [facility] WBC LM.HPF (Urine sed) [#/Area] 10-20 Abnormal 0 - 5 /HPF [facility] URINE PROTEIN/CREA RATIO, Baljit 06-12-2022 Creatinine (24H U) [Mass/Vol] 231.68 mg/dL [facility] Protein Unsp time (U) [Mass/Vol] 49 mg/dL [facility] Protein/Creatinine (U) [Mass ratio] 0.211 [facility] ([facility]IM[facility]) WHOLE BLO ODon 06-09-2022 Tacrolimus (FK506), Blood 9.8 ng/mL Normal 2.0-20.[address] [facility] Comment on above: Result Comment: Trou gh (immediately following transplant) 15.0 . Trough (steady state, 2 weeks or more after transplant): 3.0 - 8.0 . Performed by LC-MS/MS technology. Performed By: #### U RTPCR #### [facility] [address] [place] [address] Dr. Dwight Waters ALBUMINon 06-06-2022 Albumin [Mass/Vol] 3.8 g/dL Normal 3.4-5.0 [facility] Comment on above: Performed By: #### C MP #### [facility] [address] [place] [address] Dr. Dwight Waters ALKALINE PHOSPHAon ALP [Catalytic activity/Vol] 82 U/L Normal 46-[address] [facility] Comment on above: Performed By: #### C MP #### [facility] [address] [place] [address] Dr. Dwight Waters BILIRUBIN CONJUGATED (DIRECT )on 06-06-2022 BILI, CONJUGATED 0.2 mg/dL Normal 0.0-0.2 [facility] Comment on above: Performed By: #### C BC #### [facility] [address] [place] [address] Dr. Dwight Waters BILIRUBIN TOTALon 06-06-2022 Bilirubin [Mass/Vol] 1.0 mg/dL Normal 0.2-1.0 [facility] Comment on above: Performed By: #### C BC #### [facility] [address] [place] [address] Dr. Dwight Waters BUNon 06-06-2022 Urea nitrogen [Mass/Vol] 18.0 mg/dL Normal 7.0-18.0 [facility] Comment on above: Performed By: #### C BC #### [facility] [address] [place] [address] Dr. Dwight Waters CALCIUMon 06-06-2022 Calcium [Mass/Vol] 9.4 mg/dL Normal 8.5-10.1 [facility] Comment on above: Performed By: #### C MP #### [facility] [address] [place] [address] Dr. Dwight Waters CBC AUTO DIFFon 06-06-2022 BASO # 0.1 103/ul Normal 0.0-0.1 [facility] Comment on above: Performed By: #### U RTPCR #### [facility] [address] [place] [address] Dr. Dwight Waters Basophils/100 WBC (Bld) 0.8 % Normal 0.2-2.0 [facility] Comment on above: Performed By: #### U RTPCR #### [facility] [address] [place] [address] Dr. Dwight Waters EO # 0.3 103/ul Normal 0.0-0.7 [facility] Comment on above: Performed By: #### U RTPCR #### [facility] [address] [place] [address] Dr. Dwight Waters Eosinophils/100 WBC (Bld) 3.3 % Normal 0.9-7.0 [facility] Comment on above: Performed By: #### U RTPCR #### [facility] [address] [place] [address] Dr. Dwight Waters Erythrocyte distribution width (RBC) [Ratio] 12.4 % Normal 11.0-15.0 [facility] Comment on above: Performed By: #### U RTPCR #### [facility] [address] [place] [address] Dr. Dwight Waters Hematocrit (Bld) [Volume fraction] 45.1 % Normal 42.0-54.0 [facility] Comment on above: Performed By: #### U RTPCR #### [facility] [address] [place] [address] Dr. Dwight Waters Hemoglobin (Bld) [Mass/Vol] 14.4 g/dL Normal 14.0-18.0 [facility] Comment on above: Performed By: #### U RTPCR #### [facility] [address] [place] [address] Dr. Dwight Waters IG # 0.01 10e3/ul Normal 0.00-0.03 [facility] Comment on above: Performed By: #### U RTPCR #### [facility] [address] [place] [address] Dr. Dwight Waters IG % 0.1 % Normal 0.0-0.5 [facility] Comment on above: Performed By: #### U RTPCR #### [facility] [address] [place] [address] Dr. Dwight Waters LYMPH # 2.2 103/ul Normal 1.2-3.8 [facility] Comment on above: Performed By: #### U RTPCR #### [facility] [address] [place] [address] Dr. Dwight Waters Lymphocytes/100 WBC (Bld) 30.0 % Normal 20.5-60.0 [facility] Comment on above: Performed By: #### U RTPCR #### [facility] [address] [place] [address] Dr. Dwight Waters MANUAL DIFF REQ NO Normal [facility] Comment on above: Performed By: #### U RTPCR #### [facility] [address] [place] [address] Dr. Dwight Waters MCH (RBC) [Entitic mass] 28.2 pg Normal 25.9-34.0 [facility] Comment on above: Performed By: #### U RTPCR #### [facility] [address] [place] [address] Dr. Dwight Waters MCHC (RBC) [Mass/Vol] 31.9 g/dL Normal 29.9-35.2 [facility] Comment on above: Performed By: #### U RTPCR #### [facility] [address] [place] [address] Dr. Dwight Waters MCV (RBC) [Entitic vol] 88.3 fL Normal 80.0-94.0 [facility] Comment on above: Performed By: #### U RTPCR #### [facility] [address] [place] [address] Dr. Dwight Waters MONO # 0.6 103/ul Normal 0.3-0.8 [facility] Comment on above: Performed By: #### U RTPCR #### [facility] [address] [place] [address] Dr. Dwight Waters Monocytes/100 WBC (Bld) 8.2 % Normal 1.7-12.0 [facility] Comment on above: Performed By: #### U RTPCR #### [facility] [address] [place] [address] Dr. Dwight Waters NEUT # 4.3 103/ul Normal 1.4-6.[address] [facility] Comment on above: Performed By: #### U RTPCR #### [facility] [address] [place] [address] Dr. Dwight Waters Neutrophils/100 WBC (Bld) 57.6 % Normal 43.0-75.0 [facility] Comment on above: Performed By: #### U RTPCR #### [facility] [address] [place] [address] Dr. Dwight Waters Platelet mean volume (Bld) [Entitic vol] 9.7 fL Normal 9.5-13.[address] [facility] Comment on above: Performed By: #### U RTPCR #### [facility] [address] [place] [address] Dr. Dwight Waters PLT 297 103/ul Normal 150-[address] [facility] Comment on above: Performed By: #### U RTPCR #### [facility] [address] [place] [address] Dr. Dwight Waters RBC 5.11 106/ul Normal 4.70-6.[address] [facility] Comment on above: Performed By: #### U RTPCR #### [facility] [address] [place] [address] Dr. Dwight Waters WBC 7.5 103/ul Normal 4.0-11.[address] [facility] Comment on above: Performed By: #### U RTPCR #### [facility] [address] [place] [address] Dr. Dwight Waters CHLORIDEon 07-08-2022 Chloride [Moles/Vol] 107 mmol/L Normal 98-107 [facility] Comment on above: Performed By: #### C BC #### [facility] [address] [place] [address] Dr. Dwight Waters CO2on 06-06-2022 CO2 [Moles/Vol] 27.4 mmol/L Normal 21.0-32.0 [facility] Comment on above: Performed By: #### C BC #### [facility] [address] [place] [address] Dr. Dwight Waters CREATININEon 06-06-2022 Creatinine [Mass/Vol] 1.20 mg/dL Normal 0.70-1.30 [facility] Comment on above: Performed By: #### C BC #### [facility] [address] [place] [address] Dr. Dwight Waters EGFR-AF MONEGASQUE >60 Normal >=60 [facility] Comment on above: Performed By: #### C BC #### [facility] [address] [place] [address] Dr. Dwight Waters EGFR-NON AF MONEGASQUE >60 Normal >=60 [facility] Comment on above: Performed By: #### C BC #### [facility] [address] [place] [address] Dr. Dwight Waters GGTon 06-06-2022 Gamma glutamyl transferase [Catalytic activity/Vol] 29 U/L Normal 15-85 [facility] Comment on above: Performed By: #### C BC #### [facility] [address] [place] [address] Dr. Dwight Waters GLUCOSE BLOODon 06-06-2022 Glucose [Mass/Vol] 112 mg/dL Critically high 74-106 [facility] Comment on above: Performed By: #### C BC #### [facility] [address] [place] [address] Dr. Dwight Waters MAGNESIUMon 06-06-2022 Magnesium [Mass/Vol] 1.3 mg/dL Critically low 1.8-2.4 [facility] Comment on above: Performed By: #### C MP #### [facility] [address] [address] [address] Dwight Waters NAon 06-06-2022 Sodium [Moles/Vol] 141 mmol/L Normal 136-145 [facility] Comment on above: Performed By: #### C MP #### [facility] [address] [place] [address] Dr. Dwight Waters PHOSPHORUSon 06-06-2022 Phosphate [Mass/Vol] 3.1 mg/dL Normal 2.6-4.7 [facility] Comment on above: Performed By: #### C MP #### [facility] [address] [place] [address] Dr. Dwight Waters POTASSIUMon 06-06-2022 Potassium [Moles/Vol] 4.3 mmol/L Normal 3.5-5.1 [facility] Comment on above: Performed By: #### C BC #### [facility] [address] [place] [address] Dr. Dwight Albert 06-06-2022 AST [Catalytic activity/Vol] 16 U/L Normal 15-[address] [facility] Comment on above: Performed By: #### C BC #### [facility] [address] [place] [address] Dr. Dwight OLVERAPTon 06-06-2022 ALT [Catalytic activity/Vol] 50 U/L Normal 16-63 [facility] Comment on above: Performed By: #### C BC #### [facility] [address] [place] [address] Dr. Dwight Waters Bacteria identified Cx Nom ( Bld)on 05-21-2022 Bacteria identified Cx Nom (Unsp spec) NO GROWTH DAY 5 OF 5 [facility] Results may be compr omised due to volume of BACT\ALERT bottle exceeding 10mLs . The optimal blood volume is 8-10 mls per aerobic/anaerobic blood culture bottle. [facility] CALCIUMon 05-20-2022 Calcium [Mass/Vol] 9.1 mg/dL 8.6 - 10. 5 mg/dL [facility] CBC,PLATELETSon 05-20-2022 Erythrocyte distribution width (RBC) [Ratio] 12.5 % 10.9 - 14.3 % [facility] Hematocrit (Bld) [Volume fraction] 37.1 % Low 39.6 - 48.8 % [facility] Hemoglobin (Bld) [Mass/Vol] 12.3 g/dL Low 13.4 - 16.8 g/dL [facility] Interpretation and review of laboratory results Abnormal [facility] MCH (RBC) [Entitic mass] 28.9 pg 26.1 - 33.3 pg [facility] MCHC (RBC) [Mass/Vol] 33.2 g/dL 31.9 - 36.5 g/dL [facility] MCV (RBC) [Entitic vol] 87.3 fL 79.0 - 94.5 fL [facility] Platelet mean volume (Bld) [Entitic vol] 9.9 fL 8.7 - 12.3 fL [facility] Platelets (Bld) [#/Vol] 234 10*3/uL 146 - 337 K/uL [facility] RBC (Bld) [#/Vol] 4.25 10*6/uL Low [facility] WBC (Bld) [#/Vol] 6.31 10*3/uL 3.73 - 10. 10 K/uL [facility] CHEM 7 (LYTES,BUN,CREA,GLUC) on 05-20-2022 Anion gap [Moles/Vol] 15 mmol/L 7 - 17 mmol/L [facility] Chloride [Moles/Vol] 111 mmol/L High 98 - 10 8 mmol/L [facility] CO2 [Moles/Vol] 22 mmol/L 21 - 31 mmol/L [facility] Creatinine [Mass/Vol] 1.10 mg/dL 0.70 - 1.30 mg/dL [facility] GFR/1.73 sq M.predicted CKD-EPI (S/P/Bld) [Vol rate/Area] 81 >=60 mL/min/1.73m 2 [facility] Comment on above: Reported eGFR is bas ed on the CKD-EPI 2020 equation using creatinine, age, and sex. Glucose [Mass/Vol] 92 mg/dL 70 - 99 mg/dL [facility] Interpretation and review of laboratory results Abnormal [facility] Osmolality Calc [Osmolality] 302 [facility] Potassium [Moles/Vol] 4.4 mmol/L 3.5 - 5.0 mmol/L [facility] Sodium [Moles/Vol] 144 mmol/L 135 - 145 mmol/L [facility] Urea nitrogen [Mass/Vol] 18 mg/dL 7 - 25 mg/dL [facility] Urea nitrogen/Creatinine [Mass ratio] 16 mg/mg [facility] MAGNESIUMon 05-20-2022 Interpretation and review of laboratory results Abnormal [facility] Magnesium [Mass/Vol] 1.5 mg/dL Low 1.6 - 2 .6 mg/dL [facility] No Panel Informationon 05-20 Interpretation and review of laboratory results Normal [facility] PHOSPHATE, INORGANICon 05-20 Phosphate [Mass/Vol] 3.3 mg/dL 2.2 - 4 .6 mg/dL [facility] RF Unspecified body region V iews [...] projections of kidneys, ureters, and bladder. FINDINGS: Maintenance Analyst images: Maintenance Analyst radiographs of the abdomen reveal a nonobstructive [...] Contrast refluxes up the ureter to the [place] right kidney that is grossly normal appearing. [...] projections of kidneys, ureters, and bladder. FINDINGS: Maintenance Analyst images: Maintenance Analyst radiographs of the abdomen reveal a nonobstructive [...] Contrast refluxes up the ureter to the [place] right kidney that is grossly normal appearing. [...] I have reviewed and approved this report. [facility] Radiology Study observation (narrative) [facility] RF Unspecified body region V iews during surgeryOrdered By: Lizz Campos on 05-20-2022 [facility] Work Phone: CALCIUMon 05-19-2022 Calcium [Mass/Vol] 9.2 mg/dL 8.6 - 10. 5 mg/dL [facility] Calcium [Mass/Vol] 8.6 mg/dL 8.6 - 10. 5 mg/dL [facility] CBC,PLATELETSon 05-19-2022 Erythrocyte distribution width (RBC) [Ratio] 12.4 % 10.9 - 14.3 % [facility] Hematocrit (Bld) [Volume fraction] 38.0 % Low 39.6 - 48.8 % [facility] Hemoglobin (Bld) [Mass/Vol] 12.0 g/dL Low 13.4 - 16.8 g/dL [facility] Interpretation and review of laboratory results Abnormal [facility] MCH (RBC) [Entitic mass] 28.6 pg 26.1 - 33.3 pg [facility] MCHC (RBC) [Mass/Vol] 31.6 g/dL Low 31.9 - 36.5 g/dL [facility] MCV (RBC) [Entitic vol] 90.5 fL 79.0 - 94.5 fL [facility] Platelet mean volume (Bld) [Entitic vol] 9.7 fL 8.7 - 12.3 fL [facility] Platelets (Bld) [#/Vol] 199 10*3/uL 146 - 337 K/uL [facility] RBC (Bld) [#/Vol] 4.20 10*6/uL Low [facility] WBC (Bld) [#/Vol] 6.81 10*3/uL 3.73 - 10. 10 K/uL [facility] CHEM 7 (LYTES,BUN,CREA,GLUC) on 05-19-2022 Anion gap [Moles/Vol] 13 mmol/L 7 - 17 mmol/L [facility] Chloride [Moles/Vol] 105 mmol/L 98 - 10 8 mmol/L [facility] CO2 [Moles/Vol] 30 mmol/L 21 - 31 mmol/L [facility] Creatinine [Mass/Vol] 1.39 mg/dL High 0.70 - 1.30 mg/dL [facility] GFR/1.73 sq M.predicted CKD-EPI (S/P/Bld) [Vol rate/Area] 61 >=60 mL/min/1.73m 2 [facility] Comment on above: Reported eGFR is bas ed on the CKD-EPI 2020 equation using creatinine, age, and sex. Glucose [Mass/Vol] 121 mg/dL High 70 - 99 mg/dL [facility] Interpretation and review of laboratory results Abnormal [facility] Osmolality Calc [Osmolality] 303 [facility] Potassium [Moles/Vol] 3.8 mmol/L 3.5 - 5.0 mmol/L [facility] Sodium [Moles/Vol] 144 mmol/L 135 - 145 mmol/L [facility] Urea nitrogen [Mass/Vol] 18 mg/dL 7 - 25 mg/dL [facility] Urea nitrogen/Creatinine [Mass ratio] 13 mg/mg [facility] Anion gap [Moles/Vol] 15 mmol/L 7 - 17 mmol/L [facility] Chloride [Moles/Vol] 106 mmol/L 98 - 10 8 mmol/L [facility] CO2 [Moles/Vol] 24 mmol/L 21 - 31 mmol/L [facility] Creatinine [Mass/Vol] 1.46 mg/dL High 0.70 - 1.30 mg/dL [facility] GFR/1.73 sq M.predicted CKD-EPI (S/P/Bld) [Vol rate/Area] 58 Low >=60 mL/min/1.73m 2 [facility] Comment on above: Reported eGFR is bas ed on the CKD-EPI 2020 equation using creatinine, age, and sex. Glucose [Mass/Vol] 103 mg/dL High 70 - 99 mg/dL [facility] Interpretation and review of laboratory results Abnormal [facility] Osmolality Calc [Osmolality] 298 [facility] Potassium [Moles/Vol] 3.9 mmol/L 3.5 - 5.0 mmol/L [facility] Sodium [Moles/Vol] 141 mmol/L 135 - 145 mmol/L [facility] Urea nitrogen [Mass/Vol] 21 mg/dL 7 - 25 mg/dL [facility] Urea nitrogen/Creatinine [Mass ratio] 14 mg/mg [facility] MAGNESIUMon 05-19-2022 Magnesium [Mass/Vol] 2.0 mg/dL 1.6 - 2 .6 mg/dL [facility] Magnesium [Mass/Vol] 1.7 mg/dL 1.6 - 2 .6 mg/dL [facility] No Panel Informationon 05-19 Interpretation and review of laboratory results Normal [facility] Interpretation and review of laboratory results Normal [facility] PHOSPHATE, INORGANICon 05-19 Phosphate [Mass/Vol] 3.0 mg/dL 2.2 - 4 .6 mg/dL [facility] Phosphate [Mass/Vol] 2.7 mg/dL 2.2 - 4 .6 mg/dL [facility] CALCIUMon 05-18-2022 Calcium [Mass/Vol] 9.1 mg/dL 8.6 - 10. 5 mg/dL [facility] CBC,PLATELETSon 05-18-2022 Erythrocyte distribution width (RBC) [Ratio] 12.5 % 10.9 - 14.3 % [facility] Hematocrit (Bld) [Volume fraction] 37.3 % Low 39.6 - 48.8 % [facility] Hemoglobin (Bld) [Mass/Vol] 11.9 g/dL Low 13.4 - 16.8 g/dL [facility] Interpretation and review of laboratory results Abnormal [facility] MCH (RBC) [Entitic mass] 28.9 pg 26.1 - 33.3 pg [facility] MCHC (RBC) [Mass/Vol] 31.9 g/dL 31.9 - 36.5 g/dL [facility] MCV (RBC) [Entitic vol] 90.5 fL 79.0 - 94.5 fL [facility] Platelet mean volume (Bld) [Entitic vol] 10.1 fL 8.7 - 12.3 fL [facility] Platelets (Bld) [#/Vol] 189 10*3/uL 146 - 337 K/uL [facility] RBC (Bld) [#/Vol] 4.12 10*6/uL Low [facility] WBC (Bld) [#/Vol] 10.19 10*3/uL High 3.73 - 10 .10 K/uL [facility] CHEM 7 (LYTES,BUN,CREA,GLUC) on 05-18-2022 Anion gap [Moles/Vol] 13 mmol/L 7 - 17 mmol/L [facility] Chloride [Moles/Vol] 102 mmol/L 98 - 10 8 mmol/L [facility] CO2 [Moles/Vol] 26 mmol/L 21 - 31 mmol/L [facility] Creatinine [Mass/Vol] 1.91 mg/dL High 0.70 - 1.30 mg/dL [facility] GFR/1.73 sq M.predicted CKD-EPI (S/P/Bld) [Vol rate/Area] 42 Low >=60 mL/min/1.73m 2 [facility] Comment on above: Reported eGFR is bas ed on the CKD-EPI 2020 equation using creatinine, age, and sex. Glucose [Mass/Vol] 158 mg/dL High 70 - 99 mg/dL [facility] Osmolality Calc [Osmolality] 297 [facility] Potassium [Moles/Vol] 4.0 mmol/L 3.5 - 5.0 mmol/L [facility] Sodium [Moles/Vol] 137 mmol/L 135 - 145 mmol/L [facility] Urea nitrogen [Mass/Vol] 30 mg/dL High 7 - 25 mg/dL [facility] Urea nitrogen/Creatinine [Mass ratio] 16 mg/mg [facility] CHEM 7 (LYTES,BUN,CREA,GLUC) Ordered By: Tamiko Thapa on 05-18-2022 Anion gap [Moles/Vol] 13 mmol/L 7 - 17 mmol/L [facility] Chloride [Moles/Vol] 104 mmol/L 98 - 10 8 mmol/L [facility] CO2 [Moles/Vol] 26 mmol/L 21 - 31 mmol/L [facility] Creatinine [Mass/Vol] 2.96 mg/dL High 0.70 - 1.30 mg/dL [facility] GFR/1.73 sq M.predicted CKD-EPI (S/P/Bld) [Vol rate/Area] 25 Low >=60 mL/min/1.73m 2 [facility] Comment on above: Reported eGFR is bas ed on the CKD-EPI 2020 equation using creatinine, age, and sex. Glucose [Mass/Vol] 136 mg/dL High 70 - 99 mg/dL [facility] Interpretation and review of laboratory results Abnormal [facility] Osmolality Calc [Osmolality] 304 [facility] Potassium [Moles/Vol] 4.2 mmol/L 3.5 - 5.0 mmol/L [facility] Sodium [Moles/Vol] 139 mmol/L 135 - 145 mmol/L [facility] Urea nitrogen [Mass/Vol] 41 mg/dL High 7 - 25 mg/dL [facility] Urea nitrogen/Creatinine [Mass ratio] 14 mg/mg [facility] MAGNESIUMon 05-18-2022 Magnesium [Mass/Vol] 2.2 mg/dL 1.6 - 2 .6 mg/dL [facility] Interpretation and review of laboratory results Normal [facility] Magnesium [Mass/Vol] 1.7 mg/dL 1.6 - 2 .6 mg/dL [facility] No Panel Informationon 05-18 Interpretation and review of laboratory results Abnormal [facility] Interpretation and review of laboratory results Normal [facility] PHOSPHATE, INORGANICon 05-18 Phosphate [Mass/Vol] 2.0 mg/dL Low 2.2 - 4 .6 mg/dL [facility] Interpretation and review of laboratory results Normal [facility] Phosphate [Mass/Vol] 2.8 mg/dL 2.2 - 4 .6 mg/dL [facility] PT,INR,PTTon 05-18-2022 aPTT Coag (PPP) [Time] 31.0 s [facility] INR Coag (Bld) [Relative time] 1.1 {INR} [facility] Interpretation and review of laboratory results Abnormal [facility] PT Coag (PPP) [Time] 14.4 s High [facility] URINE CULTUREOrdered By: Sylvia Campos on 05-18-2022 Bacteria identified Cx Nom (Unsp spec) No Growth [facility] CBC,PLATELETSon 05-17-2022 Erythrocyte distribution width (RBC) [Ratio] 12.8 % 10.9 - 14.3 % [facility] Hematocrit (Bld) [Volume fraction] 42.8 % 39.6 - 48.8 % [facility] Hemoglobin (Bld) [Mass/Vol] 13.3 g/dL Low 13.4 - 16.8 g/dL [facility] Interpretation and review of laboratory results Abnormal [facility] MCH (RBC) [Entitic mass] 28.9 pg 26.1 - 33.3 pg [facility] MCHC (RBC) [Mass/Vol] 31.1 g/dL Low 31.9 - 36.5 g/dL [facility] MCV (RBC) [Entitic vol] 92.8 fL 79.0 - 94.5 fL [facility] Platelet mean volume (Bld) [Entitic vol] 10.3 fL 8.7 - 12.3 fL [facility] Platelets (Bld) [#/Vol] 188 10*3/uL 146 - 337 K/uL [facility] RBC (Bld) [#/Vol] 4.61 10*6/uL [facility] WBC (Bld) [#/Vol] 16.61 10*3/uL High 3.73 - 10 .10 K/uL [facility] CHEM 7 (LYTES,BUN,CREA,GLUC) Ordered By: Kaylah Mc on 05-17-2022 Anion gap [Moles/Vol] 15 mmol/L 7 - 17 mmol/L [facility] Chloride [Moles/Vol] 103 mmol/L 98 - 10 8 mmol/L [facility] CO2 [Moles/Vol] 23 mmol/L 21 - 31 mmol/L [facility] Creatinine [Mass/Vol] 5.95 mg/dL High 0.70 - 1.30 mg/dL [facility] GFR/1.73 sq M.predicted CKD-EPI (S/P/Bld) [Vol rate/Area] 11 Low >=60 mL/min/1.73m 2 [facility] Comment on above: Reported eGFR is bas ed on the CKD-EPI 2020 equation using creatinine, age, and sex. Glucose [Mass/Vol] 165 mg/dL High 70 - 99 mg/dL [facility] Interpretation and review of laboratory results Abnormal [facility] Osmolality Calc [Osmolality] 305 [facility] Potassium [Moles/Vol] 4.6 mmol/L 3.5 - 5.0 mmol/L [facility] Sodium [Moles/Vol] 136 mmol/L 135 - 145 mmol/L [facility] Urea nitrogen [Mass/Vol] 52 mg/dL High 7 - 25 mg/dL [facility] Urea nitrogen/Creatinine [Mass ratio] 9 mg/mg [facility] CHEM 7 (LYTES,BUN,CREA,GLUC) Ordered By: Kehinde Olsen on 05-17-2022 Anion gap [Moles/Vol] 24 mmol/L High 7 - 17 mmol/L [facility] Chloride [Moles/Vol] 100 mmol/L 98 - 10 8 mmol/L [facility] CO2 [Moles/Vol] 16 mmol/L Low 21 - 31 mmol/L [facility] Creatinine [Mass/Vol] 8.08 mg/dL High 0.70 - 1.30 mg/dL [facility] GFR/1.73 sq M.predicted CKD-EPI (S/P/Bld) [Vol rate/Area] 7 Low >=60 mL/min/1.73m 2 [facility] Comment on above: Reported eGFR is bas ed on the CKD-EPI 2020 equation using creatinine, age, and sex. Glucose [Mass/Vol] 164 mg/dL High 70 - 99 mg/dL [facility] Interpretation and review of laboratory results Abnormal [facility] Osmolality Calc [Osmolality] 305 [facility] Potassium [Moles/Vol] 5.0 mmol/L 3.5 - 5.0 mmol/L [facility] Sodium [Moles/Vol] 135 mmol/L 135 - 145 mmol/L [facility] Urea nitrogen [Mass/Vol] 56 mg/dL High 7 - 25 mg/dL [facility] Urea nitrogen/Creatinine [Mass ratio] 7 mg/mg [facility] LAVENDER TOP TUBEon 05-17-20 [facility] MAGNESIUMon 05-17-2022 Interpretation and review of laboratory results Normal [facility] Magnesium [Mass/Vol] 1.8 mg/dL 1.6 - 2 .6 mg/dL [facility] Interpretation and review of laboratory results Normal [facility] Magnesium [Mass/Vol] 1.6 mg/dL 1.6 - 2 .6 mg/dL [facility] No Panel Informationon 05-17 [facility] PHOSPHATE, INORGANICon 05-17 Interpretation and review of laboratory results Abnormal [facility] Phosphate [Mass/Vol] 4.9 mg/dL High 2.2 - 4 .6 mg/dL [facility] PT,INR,PTTon 05-17-2022 aPTT Coag (PPP) [Time] 33.0 s [facility] INR Coag (Bld) [Relative time] 1.3 {INR} High [facility] Interpretation and review of laboratory results Abnormal [facility] PT Coag (PPP) [Time] 15.7 s [...] Stable cardiomegaly. IMPRESSION IMPRESSION: No acute findings. [facility] Radiology Study observation (narrative) [facility] Portable XR Chest ViewsOrder ed By: Raheem Sanz on 05-17-2022 [facility] Work Phone: URINALYSISOrdered By: Michael patel Ma on 05-17-2022 Appearance (U) Cloudy Abnormal Clear [facility] Comment on above: Results may be inacc urate due to color interference. Clinical correlation recommended. Bacteria LM Ql (Urine sed) ABSENT ABSENT [facility] Color (U) Red Abnormal Yellow [facility] Comment on above: Results may be inacc urate due to color interference. Clinical correlation recommended. Epithelial cells.squamous LM Ql (Urine sed) ABSENT 1/hpf = 1+, 2-5/hpf = 2+, 0/hpf = 0+, ABSENT [facility] Glucose Test strip (U) [Mass/Vol] Negative Negative [facility] Comment on above: Results may be inacc urate due to color interference. Clinical correlation recommended. Interpretation and review of laboratory results Abnormal [facility] Ketones (U) [Mass/Vol] Trace Abnormal Negative [facility] Comment on above: Results may be inacc urate due to color interference. Clinical correlation recommended. Leukocyte esterase Test strip Ql (U) Large Abnormal Negative [facility] Comment on above: Results may be inacc urate due to color interference. Clinical correlation recommended. Nitrite Ql (U) Negative Negative [facility] Comment on above: Results may be inacc urate due to color interference. Clinical correlation recommended. pH (U) 5.0 [pH] 5.0 - 7.0 [facility] Comment on above: Results may be inacc urate due to color interference. Clinical correlation recommended. Protein (U) [Mass/Vol] mg/dL Abnormal Negative [facility] Comment on above: Results may be inacc urate due to color interference. Clinical correlation recommended. RBC (U) [#/Vol] Large Abnormal Negative [facility] Comment on above: Results may be inacc urate due to color interference. Clinical correlation recommended. RBC LM.HPF (Urine sed) [#/Area] /[HPF] Abnormal 0 - 2 /HPF [facility] Specific gravity (U) [Rel density] 1.016 [facility] Comment on above: Results may be inacc urate due to color interference. Clinical correlation recommended. Urobilinogen (U) [Mass/Vol] 0.2 E.U./dL 0.2 E.U/dL, 1.0 E.U/dL [facility] Comment on above: Results may be inacc urate due to color interference. Clinical correlation recommended. WBC LM.HPF (Urine sed) [#/Area] /[HPF] Abnormal 0 - 5 /HPF [facility] URINE CULTUREOrdered By: Tyler Tiwari on 05-17-2022 Bacteria identified Cx Nom (Unsp spec) No Growth [facility] CBC,PLATELETSon 05-16-2022 Erythrocyte distribution width (RBC) [Ratio] 12.9 % 10.9 - 14.3 % [facility] Hematocrit (Bld) [Volume fraction] 46.5 % 39.6 - 48.8 % [facility] Hemoglobin (Bld) [Mass/Vol] 14.7 g/dL 13.4 - 16.8 g/dL [facility] Interpretation and review of laboratory results Abnormal [facility] MCH (RBC) [Entitic mass] 28.3 pg 26.1 - 33.3 pg [facility] MCHC (RBC) [Mass/Vol] 31.6 g/dL Low 31.9 - 36.5 g/dL [facility] MCV (RBC) [Entitic vol] 89.6 fL 79.0 - 94.5 fL [facility] Platelet mean volume (Bld) [Entitic vol] 10.3 fL 8.7 - 12.3 fL [facility] Platelets (Bld) [#/Vol] 188 10*3/uL 146 - 337 K/uL [facility] RBC (Bld) [#/Vol] 5.19 10*6/uL [facility] WBC (Bld) [#/Vol] 12.55 10*3/uL High 3.73 - 10 .10 K/uL [facility] CHEM 7 (LYTES,BUN,CREA,GLUC) Ordered By: Alma Pena on 05-16-2022 Anion gap [Moles/Vol] 14 mmol/L 7 - 17 mmol/L [facility] Chloride [Moles/Vol] 103 mmol/L 98 - 10 8 mmol/L [facility] CO2 [Moles/Vol] 22 mmol/L 21 - 31 mmol/L [facility] Creatinine [Mass/Vol] 6.09 mg/dL High 0.70 - 1.30 mg/dL [facility] GFR/1.73 sq M.predicted CKD-EPI (S/P/Bld) [Vol rate/Area] 10 Low >=60 mL/min/1.73m 2 [facility] Comment on above: Reported eGFR is bas ed on the CKD-EPI 2020 equation using creatinine, age, and sex. Glucose [Mass/Vol] 134 mg/dL High 70 - 99 mg/dL [facility] Interpretation and review of laboratory results Abnormal [facility] Osmolality Calc [Osmolality] 298 [facility] Potassium [Moles/Vol] 4.9 mmol/L 3.5 - 5.0 mmol/L [facility] Sodium [Moles/Vol] 134 mmol/L Low 135 - 145 mmol/L [facility] Comment on above: Results inconsistent with previous results Urea nitrogen [Mass/Vol] 49 mg/dL High 7 - 25 mg/dL [facility] Urea nitrogen/Creatinine [Mass ratio] 8 mg/mg [facility] CHEM 7 (LYTES,BUN,CREA,GLUC) on 05-16-2022 Anion gap [Moles/Vol] 17 mmol/L 7 - 17 mmol/L [facility] Chloride [Moles/Vol] 106 mmol/L 98 - 10 8 mmol/L [facility] CO2 [Moles/Vol] 22 mmol/L 21 - 31 mmol/L [facility] Creatinine [Mass/Vol] 5.23 mg/dL High 0.70 - 1.30 mg/dL [facility] GFR/1.73 sq M.predicted CKD-EPI (S/P/Bld) [Vol rate/Area] 13 Low >=60 mL/min/1.73m 2 [facility] Comment on above: Reported eGFR is bas ed on the CKD-EPI 2020 equation using creatinine, age, and sex. Glucose [Mass/Vol] 116 mg/dL High 70 - 99 mg/dL [facility] Interpretation and review of laboratory results Abnormal [facility] Osmolality Calc [Osmolality] 305 [facility] Potassium [Moles/Vol] 4.6 mmol/L 3.5 - 5.0 mmol/L [facility] Sodium [Moles/Vol] 140 mmol/L 135 - 145 mmol/L [facility] Urea nitrogen [Mass/Vol] 42 mg/dL High 7 - 25 mg/dL [facility] Urea nitrogen/Creatinine [Mass ratio] 8 mg/mg [facility] EXTRA MICROon 05-16-2022 [facility] LT BLUE TOP TUBEon 2 [facility] LYTES (NA, K, CL) - URINE - RANDOMon 05-16-2022 Chloride (24H U) [Moles/Vol] 68 mmol/L [facility] Potassium (24H U) [Moles/Vol] 36.7 mmol/L [facility] Sodium (24H U) [Moles/Vol] 55 mmol/L [facility] The reference range has not been established for random urine specimens. The test result should be integrated into the clinical context for interpretation. [facility] MAGNESIUMon 05-16-2022 Interpretation and review of laboratory results Normal [facility] Magnesium [Mass/Vol] 1.7 mg/dL 1.6 - 2 .6 mg/dL [facility] NOVEL CORONAVIRUS PCROrdered By: Edson Candelario on 05-16-2022 SARS-CoV-2 (COVID-19) RNA ESTELITA+probe Ql (Unsp spec) Not detected NOT DETECTED [facility] Comment on above: [facility] Negative results do [...] use authorization for use by authorized laboratories. [facility] No Panel Informationon 05-16 [facility] OSMOLALITY, URINEon 05-16-20 Interpretation and review of laboratory results Normal [facility] Osmolality (U) [Osmolality] 320 mosm/kg [facility] The reference range has not been established for random urine specimens. The test result should be integrated into the clinical context for interpretation. [facility] PROCALCITONINon 05-16-2022 Interpretation and review of laboratory results Normal [facility] Procalcitonin [Mass/Vol] 0.18 ng/mL <0.50 [facility] Comment on above: Procalcitonin is an [...] and trend procalcitonin in various clinical settings. [email or web address] Two common cutoffs associated with bacterial infections are as follows. Respiratory tract infections: >0.25 ng/mL Sepsis/septic shock: >0.5 ng/mL Procalcitonin should not be used alone as a diagnostic tool, however. All procalcitonin results should be interpreted in association with the patients clinical condition and all laboratory findings. [facility] PT,INR,PTTon 05-16-2022 aPTT Coag (PPP) [Time] 30.3 s [facility] INR Coag (Bld) [Relative time] 1.1 {INR} [facility] Interpretation and review of laboratory results Normal [facility] PT Coag (PPP) [[facility]] [facility] SARS-CoV-2 (C[facility]-19) RNA NA A+probe Ql (Unsp spec)Ordered By: Edson Candelario on 05-16-2022 Interpretation and review of laboratory results Normal [facility] TACROLIMUS LEVEL, TROUGH ([place] E DRUG LEVEL)Ordered By: Mariama Nick on 05-16-2022 Interpretation and review of laboratory results Normal [facility] Tacrolimus (Bld) [Mass/Vol] 4.1 ng/mL Bone Marrow Transplant: 4.0-12.0, Therapeutic: 5.0-15.0 [facility] Method performed is a chemiluminescent microparticle immunoasssay on the [employer]yer i2000. The range is based on experience at [facility] and users should be aware that target concentrations vary widely depending on concomitant therapy, time post-transplant, and desired degree of immunosuppression. [facility] URINE PROTEIN/CREA RATIO, RA NDOMon 05-16-2022 Creatinine (24H U) [Mass/Vol] 59.82 mg/dL [facility] Protein Unsp time (U) [Mass/Vol] 111 mg/dL [facility] Protein/Creatinine (U) [Mass ratio] 1.856 mg/g [facility] US for transplanted kidney l [...] appearing vascular flow in the transplant kidney. [facility] Radiology Study observation (narrative) [facility] US for transplanted kidney l imitedOrdered By: Rosendo Matute on 05-16-2022 [facility] Work Phone: CBC AND ELECTRONIC DIFFon Basophils (Bld) [#/Vol] 10*3/uL 0.00 - 0.09 K/uL [facility] Basophils/100 WBC (Bld) 0.2 % [facility] Differential cell count method Nom (Bld) Electronic Differential [facility] Eosinophils (Bld) [#/Vol] 10*3/uL 0.00 - 0.48 K/uL [facility] Eosinophils/100 WBC (Bld) 0.0 % [facility] Erythrocyte distribution width (RBC) [Ratio] 12.8 % 10.9 - 14.3 % [facility] Hematocrit (Bld) [Volume fraction] 46.0 % 39.6 - 48.8 % [facility] Hemoglobin (Bld) [Mass/Vol] 14.6 g/dL 13.4 - 16.8 g/dL [facility] Immature granulocytes (Bld) [#/Vol] 0.07 10*3/uL <=0.08 [facility] Immature granulocytes/100 WBC (Bld) 0.4 % [facility] Interpretation and review of laboratory results Abnormal [facility] Lymphocytes (Bld) [#/Vol] 1.49 10*3/uL 0.83 - 3.57 K/uL [facility] Lymphocytes/100 WBC (Bld) 9.4 % [facility] MCH (RBC) [Entitic mass] 28.2 pg 26.1 - 33.3 pg [facility] MCHC (RBC) [Mass/Vol] 31.7 g/dL Low 31.9 - 36.5 g/dL [facility] MCV (RBC) [Entitic vol] 89.0 fL 79.0 - 94.5 fL [facility] Monocytes (Bld) [#/Vol] 1.45 10*3/uL High 0.24 - 0.93 K/uL [facility] Monocytes/100 WBC (Bld) 9.2 % [facility] Neutrophils (Bld) [#/Vol] 12.77 10*3/uL High 1.57 - 6.19 K/uL [facility] Nucleated RBC/100 WBC (Bld) [Ratio] 0.0 % <=0.2 /100 WBC [facility] Platelet mean volume (Bld) [Entitic vol] 9.9 fL 8.7 - 12.3 fL [facility] Platelets (Bld) [#/Vol] 250 10*3/uL 146 - 337 K/uL [facility] RBC (Bld) [#/Vol] 5.17 10*6/uL [facility] Segmented neutrophils/100 WBC (Bld) 80.8 % [facility] WBC (Bld) [#/Vol] 15.81 10*3/uL High 3.73 - 10 .10 K/uL [facility] CBC AUTO DIFFon 05-15-2022 BASO # 0.0 103/ul Normal 0.0-0.1 [facility] Comment on above: Performed By: #### C BC #### [facility] [address] [place] [address] Dr. Dwight Waters Basophils/100 WBC (Bld) 0.3 % Normal 0.2-2.0 [facility] Comment on above: Performed By: #### C BC #### [facility] [address] [place] [address] Dr. Dwight Waters EO # 0.1 103/ul Normal 0.0-0.7 [facility] Comment on above: Performed By: #### C BC #### [facility] [address] [place] [address] Dr. Dwight Waters Eosinophils/100 WBC (Bld) 0.8 % Critically low 0.9-7.0 [facility] Comment on above: Performed By: #### C BC #### [facility] [address] [place] [address] Dr. Dwight Waters Erythrocyte distribution width (RBC) [Ratio] 12.7 % Normal 11.0-15.0 [facility] Comment on above: Performed By: #### C BC #### [facility] [address] [place] [address] Dr. Dwight Waters Hematocrit (Bld) [Volume fraction] 43.5 % Normal 42.0-54.0 [facility] Comment on above: Performed By: #### C BC #### [facility] [address] [place] [address] Dr. Dwight Waters Hemoglobin (Bld) [Mass/Vol] 14.4 g/dL Normal 14.0-18.0 [facility] Comment on above: Performed By: #### C BC #### [facility] [address] [place] [address] Dr. Dwight Waters IG # 0.02 10e3/ul Normal 0.00-0.03 [facility] Comment on above: Performed By: #### C BC #### [facility] [address] [place] [address] Dr. Dwight Waters IG % 0.2 % Normal 0.0-0.5 [facility] Comment on above: Performed By: #### C BC #### [facility] [address] [place] [address] Dr. Dwight Waters LYMPH # 1.5 103/ul Normal 1.2-3.[address] [facility] Comment on above: Performed By: #### C BC #### [facility] [address] [place] [address] Dr. Dwight Waters Lymphocytes/100 WBC (Bld) 12.5 % Critically low 20.5-60.0 [facility] Comment on above: Performed By: #### C BC #### [facility] [address] [place] [address] Dr. Dwight Waters MANUAL DIFF REQ NO Normal [facility] Comment on above: Performed By: #### C BC #### [facility] [address] [place] [address] Dr. Dwight Waters MCH (RBC) [Entitic mass] 28.6 pg Normal 25.9-34.0 [facility] Comment on above: Performed By: #### C BC #### [facility] [address] [place] [address] Dr. Dwight Waters MCHC (RBC) [Mass/Vol] 33.1 g/dL Normal 29.9-35.2 [facility] Comment on above: Performed By: #### C BC #### [facility] [address] [place] [address] Dr. Dwight Waters MCV (RBC) [Entitic vol] 86.3 fL Normal 80.0-94.0 [facility] Comment on above: Performed By: #### C BC #### [facility] [address] [place], [place] [id number] Dr. Dwight Waters MONO # 1.0 103/ul Critically high 0.3-0.8 [facility] Comment on above: Performed By: #### C BC #### [facility] [address] [place] [address] Dr. Dwight Waters Monocytes/100 WBC (Bld) 8.2 % Normal 1.7-12.0 [facility] Comment on above: Performed By: #### C BC #### [facility] [address] [place] [address] Dr. Dwight Waters NEUT # 9.1 103/ul Critically high 1.4-6.5 [facility] Comment on above: Performed By: #### C BC #### [facility] [address] [place] [address] Dr. Dwight Waters Neutrophils/100 WBC (Bld) 78.0 % Critically high 43.0-75.0 [facility] Comment on above: Performed By: #### C BC #### [facility] [address] [place] [address] Dr. Dwight Waters Platelet mean volume (Bld) [Entitic vol] 9.8 fL Normal 9.5-13.[address] [facility] Comment on above: Performed By: #### C BC #### [facility] [address] [place] [address] Dr. Dwight Waters PLT 251 103/ul Normal 150-[address] [facility] Comment on above: Performed By: #### C BC #### [facility] [address] [place] [address] Dr. Dwight Waters RBC 5.04 106/ul Normal 4.70-6.[address] [facility] Comment on above: Performed By: #### C BC #### [facility] [address] [place] [address] Dr. Dwight Waters WBC 11.6 103/ul Critically high 4.0-11.[address] [facility] Comment on above: Performed By: #### C BC #### [facility] [address] [place] [address] Dr. Dwight Waters CHEM 6 (LYTES, BUN CREA)on 0 05-15-2022 Anion gap [Moles/Vol] 12 mmol/L 7 - 17 mmol/L [facility] Chloride [Moles/Vol] 105 mmol/L 98 - 10 8 mmol/L [facility] CO2 [Moles/Vol] 26 mmol/L 21 - 31 mmol/L [facility] Creatinine [Mass/Vol] 2.85 mg/dL High 0.70 - 1.30 mg/dL [facility] GFR/1.73 sq M.predicted CKD-EPI (S/P/Bld) [Vol rate/Area] 26 Low >=60 mL/min/1.73m 2 [facility] Comment on above: Reported eGFR is bas ed on the CKD-EPI 2020 equation using creatinine, age, and sex. Potassium [Moles/Vol] 4.6 mmol/L 3.5 - 5.0 mmol/L [facility] Sodium [Moles/Vol] 138 mmol/L 135 - 145 mmol/L [facility] Urea nitrogen [Mass/Vol] 32 mg/dL High 7 - 25 mg/dL [facility] Urea nitrogen/Creatinine [Mass ratio] 11 mg/mg [facility] CT ABD/PELVIS WO CONon 05-15 CT ABD/PELVIS [...] transplanted kidney with moderate right-sided hydronephrosis. Atrophic [place] kidneys with moderate right-sided hydronephrosis. Multiple nonobstructive [...] transplanted kidney with moderate right-sided hydronephrosis. Atrophic [place] kidneys with moderate right-sided hydronephrosis. Multiple nonobstructive right renal calculi measuring up to 8 mm. FOLLOW-UP: Follow-up as clinically indicated. Electronically authenticated by: LYNDSAY JEAN Date: 2022-05-15 05:[address] [facility] Covid-19 PCR (CVDTB)on 04-30 SARS-CoV-2 (COVID-19) RNA ESTELITA+probe Ql (Unsp spec) Not detected Normal NOT DETECTED [facility] Comment on above: Result Comment: When [...] for this test is supported by the [employer] and Human Service's declaration that [...] used). Performed By: #### U RTPCR #### [facility] [address] [place] [address] Dr. Dwight Waters GLUCOSEon 05-15-2022 Glucose [Mass/Vol] 141 mg/dL High 70 - 99 mg/dL [facility] GOLD TOP TUBEon 05-15-2022 [facility] HEPATIC FUNCTION PANELon Albumin [Mass/Vol] 4.3 g/dL 3.5 - 5.0 g/dL [facility] ALP [Catalytic activity/Vol] 85 U/L 32 - 126 U/L [facility] ALT [Catalytic activity/Vol] 13 U/L 10 - 52 U/L [facility] AST [Catalytic activity/Vol] 15 U/L 10 - 39 U/L [facility] Bilirubin [Mass/Vol] 0.8 mg/dL <1.5 [facility] Bilirubin.direct [Mass/Vol] 0.2 mg/dL <0.3 [facility] Interpretation and review of laboratory results Normal [facility] Protein [Mass/Vol] 7.3 g/dL 6.4 - 8.3 g/dL [facility] LIPASEon 05-15-2022 Lipase [Catalytic activity/Vol] 8 U/L Low 11 - 82 U/L [facility] No Panel Informationon 05-15 Interpretation and review of laboratory results Abnormal [facility] PROF 14(COMP METB)on 022 Albumin [Mass/Vol] 3.8 g/dL Normal 3.4-5.0 [facility] Comment on above: Performed By: #### U RTPCR #### [facility] [address] [place] [address] Dr. Dwight Waters Albumin/Globulin [Mass ratio] 1.1 {ratio} Normal [facility] Comment on above: Performed By: #### U RTPCR #### [facility] [address] [place] [address] Dr. Dwight Waters ALP [Catalytic activity/Vol] 92 U/L Normal 46-[address] [facility] Comment on above: Performed By: #### U RTPCR #### [facility] [address] [place] [address] Dr. Dwight Waters ALT [Catalytic activity/Vol] 25 U/L Normal 16-[address] [facility] Comment on above: Performed By: #### U RTPCR #### [facility] [address] [place] [address] Dr. Dwight Waters Anion gap [Moles/Vol] 14.6 mmol/L Normal [facility] Comment on above: Performed By: #### U RTPCR #### [facility] [address] [place] [address] Dr. Dwight Waters AST [Catalytic activity/Vol] 17 U/L Normal 15-37 [facility] Comment on above: Performed By: #### U RTPCR #### [facility] [address] [place] [address] Dr. Dwight Waters Bilirubin [Mass/Vol] 0.6 mg/dL Normal 0.2-1.0 [facility] Comment on above: Performed By: #### U RTPCR #### [facility] [address] [place] [address] Dr. Dwight Waters Calcium [Mass/Vol] 9.9 mg/dL Normal 8.5-10.1 [facility] Comment on above: Performed By: #### U RTPCR #### [facility] [address] [place] [address] Dr. Dwight Waters Chloride [Moles/Vol] 106 mmol/L Normal 98-107 [facility] Comment on above: Performed By: #### U RTPCR #### [facility] [address] [place] [address] Dr. Dwigth Waters CO2 [Moles/Vol] 24.2 mmol/L Normal 21.0-32.0 [facility] Comment on above: Performed By: #### U RTPCR #### [facility] [address] [place] [address] Dr. Dwight Waters Creatinine [Mass/Vol] 1.58 mg/dL Critically high 0.70-1.30 [facility] Comment on above: Performed By: #### U RTPCR #### [facility] [address] [place] [address] Dr. Dwight Waters EGFR-AF MONEGASQUE 56 mL/min/1.73m2 Critically low >=[address] [facility] Comment on above: Performed By: #### U RTPCR #### [facility] [address] [place] [address] Dr. Dwight Waters EGFR-NON AF MONEGASQUE 46 mL/min/1.73m2 Critically low >=60 [facility] Comment on above: Performed By: #### U RTPCR #### [facility] [address] [place] [address] Dr. Dwight Waters Globulin (S) [Mass/Vol] 3.5 g/dL Normal [facility] Comment on above: Performed By: #### U RTPCR #### [facility] [address] [place] [address] Dr. Dwight Waters Glucose [Mass/Vol] 162 mg/dL Critically high 74-106 [facility] Comment on above: Performed By: #### U RTPCR #### [facility] [address] [place] [address] Dr. Dwight Waters Potassium [Moles/Vol] 3.8 mmol/L Normal 3.5-5.1 [facility] Comment on above: Performed By: #### U RTPCR #### [facility] [address] [place] [address] Dr. Dwight Waters Protein [Mass/Vol] 7.3 g/dL Normal 6.4-8.2 [facility] Comment on above: Performed By: #### U RTPCR #### [facility] [address] [place] [address] Dr. Dwight Waters Sodium [Moles/Vol] 141 mmol/L Normal 136-145 [facility] Comment on above: Performed By: #### U RTPCR #### [facility] [address] [place] [address] Dr. Dwight Waters Urea nitrogen [Mass/Vol] 22.0 mg/dL Critically high 7.0-18.0 [facility] Comment on above: Performed By: #### U RTPCR #### [facility] [address] [place] [address] Dr. Dwight Waters Urea nitrogen/Creatinine [Mass ratio] 13.9 mg/mg Normal [facility] Comment on above: Performed By: #### U RTPCR #### [facility] [address] [place] [address] Dr. Dwight Waters Portable XR Chest Viewson [...] chest. IMPRESSION IMPRESSION: No acute cardiopulmonary disease [facility] Radiology Study observation (narrative) [facility] Portable XR Chest ViewsOrder ed By: Vladislav Omer on 05-15-2022 [facility] URINE DIPSTICK; REFLEX MICRO SCOPY; REFLEX CULTURE PERFORMABLEon 05-15-2022 Appearance (U) Clear Clear [facility] Color (U) Yellow Yellow [facility] Glucose Test strip (U) [Mass/Vol] 100 mg/dL Abnormal Negative [facility] Interpretation and review of laboratory results Abnormal [facility] Ketones (U) [Mass/Vol] Negative Negative [facility] Leukocyte esterase Test strip Ql (U) Large Abnormal Negative [facility] Nitrite Ql (U) Negative Negative [facility] pH (U) 6.0 [pH] 5.0 - 7.0 [facility] Protein (U) [Mass/Vol] 100 mg/dL Abnormal Negative [facility] RBC (U) [#/Vol] Large Abnormal Negative [facility] Specific gravity (U) [Rel density] 1.010 [facility] Urobilinogen (U) [Mass/Vol] 0.2 E.U./dL 0.2 E.U/dL, 1.0 E.U/dL [facility] URINE MICROSCOPIC WITH REFLE X TO CULTUREOrdered By: Rey Bro on 05-15-2022 Bacteria LM Ql (Urine sed) ABSENT ABSENT [facility] Epithelial cells.squamous LM Ql (Urine sed) ABSENT 1/hpf = 1+, 2-5/hpf = 2+, 0/hpf = 0+, ABSENT [facility] Interpretation and review of laboratory results Abnormal [facility] RBC LM.HPF (Urine sed) [#/Area] /[HPF] Abnormal 0 - 2 /HPF [facility] WBC LM.HPF (Urine sed) [#/Area] 10-20 [...] 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 The [place] kidneys are progressively atrophic bilaterally compared to [...] of 06/14/2020 are no longer present. The [place] distal right ureter is decompressed beyond this [...] with surgical history for renal graft and [place] right urinary drainage, as a discrete ureteroneocystostomy is not identified, and the graft may be draining via a ureteroureterostomy. Urology consultation recommended. 3. The [place] kidneys are bilaterally atrophic, with right renal sinus calcifications consistent with nonobstructing right [place] renal calculi up to [address] [facility] CBC AUTO DIFFon 05-11-2022 BASO # 0.1 103/ul Normal 0.0-0.1 [facility] Comment on above: Performed By: #### U RTPCR #### [facility] [address] [place] [address] Dr. Dwight Waters Basophils/100 WBC (Bld) 0.8 % Normal 0.2-2.0 [facility] Comment on above: Performed By: #### U RTPCR #### [facility] [address] [place] [address] Dr. Dwight Waters EO # 0.2 103/ul Normal 0.0-0.[address] [facility] Comment on above: Performed By: #### U RTPCR #### [facility] [address] [place] [address] Dr. Dwight Waters Eosinophils/100 WBC (Bld) 2.5 % Normal 0.9-7.0 [facility] Comment on above: Performed By: #### U RTPCR #### [facility] [address] [place] [address] Dr. Dwight Waters Erythrocyte distribution width (RBC) [Ratio] 12.5 % Normal 11.0-15.0 [facility] Comment on above: Performed By: #### U RTPCR #### [facility] [address] [place] [address] Dr. Dwight Waters Hematocrit (Bld) [Volume fraction] 48.3 % Normal 42.0-54.0 [facility] Comment on above: Performed By: #### U RTPCR #### [facility] [address] [place] [address] Dr. Dwight Waters Hemoglobin (Bld) [Mass/Vol] 15.3 g/dL Normal 14.0-18.[address] [facility] Comment on above: Performed By: #### U RTPCR #### [facility] [address] [place] [address] Dr. Dwight Waters IG # 0.01 10e3/ul Normal 0.00-0.03 [facility] Comment on above: Performed By: #### U RTPCR #### [facility] [address] [place] [address] Dr. Dwight Waters IG % 0.2 % Normal 0.0-0.5 [facility] Comment on above: Performed By: #### U RTPCR #### [facility] [address] [place] [address] Dr. Dwight Waters LYMPH # 1.9 103/ul Normal 1.2-3.8 [facility] Comment on above: Performed By: #### U RTPCR #### [facility] [address] [place] [address] Dr. Dwight Waters Lymphocytes/100 WBC (Bld) 29.8 % Normal 20.5-60.0 [facility] Comment on above: Performed By: #### U RTPCR #### [facility] [address] [place] [address] Dr. Dwight Waters MANUAL DIFF REQ NO Normal [facility] Comment on above: Performed By: #### U RTPCR #### [facility] [address] [place] [address] Dr. Dwight Waters MCH (RBC) [Entitic mass] 28.2 pg Normal 25.9-34.0 [facility] Comment on above: Performed By: #### U RTPCR #### [facility] [address] [place] [address] Dr. Dwight Waters MCHC (RBC) [Mass/Vol] 31.7 g/dL Normal 29.9-35.2 [facility] Comment on above: Performed By: #### U RTPCR #### [facility] [address] [place] [address] Dr. Dwight Waters MCV (RBC) [Entitic vol] 89.1 fL Normal 80.0-94.0 [facility] Comment on above: Performed By: #### U RTPCR #### [facility] [address] [place] [address] Dr. Dwight Waters MONO # 0.6 103/ul Normal 0.3-0.8 [facility] Comment on above: Performed By: #### U RTPCR #### [facility] [address] [place] [address] Dr. Dwight Waters Monocytes/100 WBC (Bld) 9.0 % Normal 1.7-12.[address] [facility] Comment on above: Performed By: #### U RTPCR #### [facility] [address] [place] [address] Dr. Dwight Waters NEUT # 3.6 103/ul Normal 1.4-6.[address] [facility] Comment on above: Performed By: #### U RTPCR #### [facility] [address] [place] [address] Dr. Dwight Waters Neutrophils/100 WBC (Bld) 57.7 % Normal 43.0-75.[address] [facility] Comment on above: Performed By: #### U RTPCR #### [facility] [address] [place] [address] Dr. Dwight Waters Platelet mean volume (Bld) [Entitic vol] 9.9 fL Normal 9.5-13.[address] [facility] Comment on above: Performed By: #### U RTPCR #### [facility] [address] [place] [address] Dr. Dwight Waters PLT 249 103/ul Normal 150-[address] [facility] Comment on above: Performed By: #### U RTPCR #### [facility] [address] [place] [address] Dr. Dwight Waters RBC 5.42 106/ul Normal 4.70-6.[address] [facility] Comment on above: Performed By: #### U RTPCR #### [facility] [address] [place] [address] Dr. Dwight Waters WBC 6.3 103/ul Normal 4.0-11.[address] [facility] Comment on above: Performed By: #### U RTPCR #### [facility] [address] [place] [address] Dr. Dwight Waters ER URINE PROFILEon 2 Bilirubin Ql (U) Unable to perform te sting due to color interference. Abnormal NEGATIVE [facility] Comment on above: Performed By: #### U RTPCR #### [facility] [address] [place] [address] Dr. Dwight Waters Clarity (U) TURBID Abnormal CLEAR [facility] Comment on above: Performed By: #### U RTPCR #### [facility] [address] [place] [address] Dr. Dwight Waters Color (U) RED Abnormal YELLOW [facility] Comment on above: Performed By: #### U RTPCR #### [facility] [address] [place] [address] Dr. Dwight Waters ERUAHD A micrscopic examina tion will be performed if indicated. Normal [facility] Comment on above: Performed By: #### U RTPCR #### [facility] [address] [place] [address] Dr. Dwight Waters Glucose Ql (U) Unable to perform te sting due to color interference. Abnormal NEGATIVE [facility] Comment on above: Performed By: #### U RTPCR #### [facility] [address] [place] [address] Dr. Dwight Waters Hemoglobin Ql (U) Unable to perform te sting due to color interference. Abnormal NEGATIVE [facility] Comment on above: Performed By: #### U RTPCR #### [facility] [address] [place] [address] Dr. Dwight Waters Ketones Ql (U) Unable to perform te sting due to color interference. Abnormal NEGATIVE [facility] Comment on above: Performed By: #### U RTPCR #### [facility] [address] [place] [address] Dr. Dwight Waters LEUKOCYTES Unable to perform te sting due to color interference. Abnormal NEGATIVE [facility] Comment on above: Performed By: #### U RTPCR #### [facility] [address] [place] [address] Dr. Dwight Waters Nitrite Ql (U) Unable to perform te sting due to color interference. Abnormal NEGATIVE [facility] Comment on above: Performed By: #### U RTPCR #### [facility] [address] [place] [address] Dr. Dwight Waters pH (U) 6.5 [pH] Normal 5-[address] [facility] Comment on above: Performed By: #### U RTPCR #### [facility] [address] [place] [address] Dr. Dwight Waters SPEC GRAVITY 1.020 Normal 1.005-<=1.[address] [facility] Comment on above: Performed By: #### U RTPCR #### [facility] [address] [place] [address] Dr. Dwight Waters UA PROTEIN Unable to perform te sting due to color interference. Normal NEGATIVE/ TRACE [facility] Comment on above: Performed By: #### U RTPCR #### [facility] [address] [place] [address] Dr. Dwight Waters UR MICRO IND INDICATED Normal [facility] Comment on above: Performed By: #### U RTPCR #### [facility] [address] [place] [address] Dr. Dwight Waters UROBILINOGEN Unable to perform te sting due to color interference. Normal 0.2 - 1.[address] [facility] Comment on above: Performed By: #### U RTPCR #### [facility] [address] [place] [address] Dr. Dwight Waters PROF 14(COMP METB)on 022 Albumin [Mass/Vol] 3.8 g/dL Normal 3.4-5.[address] [facility] Comment on above: Performed By: #### C MP #### [facility] [address] [place] [address] Dr. Dwight Waters Albumin/Globulin [Mass ratio] 1.1 {ratio} Normal [facility] Comment on above: Performed By: #### C MP #### [facility] [address] [place] [address] Dr. Dwight Waters ALP [Catalytic activity/Vol] 106 U/L Normal 46-[address] [facility] Comment on above: Performed By: #### C MP #### [facility] [address] [place] [address] Dr. Dwight Waters ALT [Catalytic activity/Vol] 30 U/L Normal 16-[address] [facility] Comment on above: Performed By: #### C MP #### [facility] [address] [place] [address] Dr. Dwight Waters Anion gap [Moles/Vol] 11.7 mmol/L Normal [facility] Comment on above: Performed By: #### C MP #### [facility] [address] [place] [address] Dr. Dwight Waters AST [Catalytic activity/Vol] 16 U/L Normal 15-37 [facility] Comment on above: Performed By: #### C MP #### [facility] [address] [place] [address] Dr. Dwight Waters Bilirubin [Mass/Vol] 0.6 mg/dL Normal 0.2-1.0 [facility] Comment on above: Performed By: #### C MP #### [facility] [address] [place] [address] Dr. Dwight Waters Calcium [Mass/Vol] 9.1 mg/dL Normal 8.5-10.1 [facility] Comment on above: Performed By: #### C MP #### [facility] [address] [place] [address] Dr. Dwight Waters CO2 [Moles/Vol] 27.4 mmol/L Normal 21.0-32.0 [facility] Comment on above: Performed By: #### C MP #### [facility] [address] [place] [address] Dr. Dwight Waters Creatinine [Mass/Vol] 1.18 mg/dL Normal 0.70-1.30 [facility] Comment on above: Performed By: #### C MP #### [facility] [address] [place] [address] Dr. Dwight Waters EGFR-AF MONEGASQUE >60 Normal >=[address] [facility] Comment on above: Performed By: #### C MP #### [facility] [address] [place] [address] Dr. Dwight Waters EGFR-NON AF MONEGASQUE >60 Normal >=60 [facility] Comment on above: Performed By: #### C MP #### [facility] [address] [place] [address] Dr. Dwight Waters Globulin (S) [Mass/Vol] 3.6 g/dL Normal [facility] Comment on above: Performed By: #### C MP #### [facility] [address] [address] [address] Dwight Waters Glucose [Mass/Vol] 192 mg/dL Critically high 74-106 [facility] Comment on above: Performed By: #### C MP #### [facility] [address] [address] [address] Dwight Waters Potassium [Moles/Vol] 4.1 mmol/L Normal 3.5-5.1 [facility] Comment on above: Performed By: #### C MP #### [facility] [address] [address] [address] Dwight Waters Protein [Mass/Vol] 7.4 g/dL Normal 6.4-8.2 [facility] Comment on above: Performed By: #### C MP #### [facility] [address] [address] [address] Dwight Waters Sodium [Moles/Vol] 142 mmol/L Normal 136-145 [facility] Comment on above: Performed By: #### C MP #### [facility] [address] [address] [address] Dwight Waters Urea nitrogen [Mass/Vol] 17.0 mg/dL Normal 7.0-18.0 [facility] Comment on above: Performed By: #### C MP #### [facility] [address] [address] [address] Dwight Waters Urea nitrogen/Creatinine [Mass ratio] 14.4 mg/mg Normal [facility] Comment on above: Performed By: #### C MP #### [facility] [address] [address] [address] Dwight Waters URINE MICROSCOPIC ONLYon BACTERIA NONE SEEN Normal NONE SEEN [facility] Comment on above: Performed By: #### U RTPCR #### [facility] [address] [address] [address] Dwight Waters Bacteria identified Cx Nom (U) NOT INDICATED Normal [facility] Comment on above: Performed By: #### U RTPCR #### [facility] [address] [place] [address] Dr. Dwight Waters CAST NONE SEEN Normal NONE SEEN [facility] Comment on above: Performed By: #### U RTPCR #### [facility] Laboratory [address] [place] [address] Dr. Dwight Waters Crystals LM Nom (Urine sed) NONE SEEN Normal NONE SEEN [facility] Comment on above: Performed By: #### U RTPCR #### [facility] [address] [place] [address] Dr. Dwight Waters Epithelial cells LM Ql (Urine sed) RARE Normal NONE SEEN /RARE [facility] Comment on above: Performed By: #### U RTPCR #### [facility] [address] [place] [address] Dr. Dwight Waters MUCOUS NONE SEEN Normal NONE SEEN [facility] Comment on above: Performed By: #### U RTPCR #### [facility] [address] [place] [address] Dr. Dwight Waters RBC (U) [#/Vol] /uL Abnormal 0-[address] [facility] Comment on above: Performed By: #### U RTPCR #### [facility] [address] [place] [address] Dr. Dwight Waters WBC NONE SEEN Normal NONE SEEN [facility] Comment on above: Performed By: #### U RTPCR #### [facility] [address] [place] [address] Dr. Dwight Waters K (Potassium)on 01-06-2020 Potassium [Moles/Vol] 4.4 mmol/L Normal 3.7-5.3 [facility] Comment on above: Performed By: #### K #### [facility] [address] [place], [place] [id number] Cat Sitter: Kehinde Woodward MD Potassiumon 01-06-2020 Potassium [Moles/Vol] 4.4 mmol/L 3.7 - 5.3 mmol/L [facility] Work Phone: Hemoglobin and Hematocrit, B loodon 10-24-2019 Hematocrit (Bld) [Volume fraction] 23.6 % Low 40.7 - 50.3 % [place], [place] Hemoglobin (Bld) [Mass/Vol] 7.3 g/dL Low 13 - 17 g/dL [place], [place] Interpretation and review of laboratory results Abnormal [place] Hgb/Hcton 10-24-2019 Hematocrit (Bld) [Volume fraction] 23.6 % Low 40.7-50.3 [facility] Comment on above: Performed By: #### H H #### [facility] [address] [place], [place] [id number] Cat Sitter: Kehinde Woodward MD Hemoglobin (Bld) [Mass/Vol] 7.3 g/dL Low 13.0-17.0 [facility] Comment on above: Performed By: #### H H #### [facility] [address] [place] [address] [place] [address] Cat Sitter: Kehinde Woodward MD Hemoglobinon 08-27-2019 Hemoglobin (Bld) [Mass/Vol] 7.5 g/dL Low 13.0-17.0 [facility] Comment on above: Performed By: #### H GB #### [address] [place] [address] Cat Sitter: Kehinde Woodward MD Hemoglobin (Bld) [Mass/Vol] 7.5 g/dL Low 13 - 17 g/dL [place], [place] Interpretation and review of laboratory results Abnormal [place] Hemoglobinon 08-08-2019 Hemoglobin (Bld) [Mass/Vol] 8.3 g/dL Low 13.0-17.0 [facility] Comment on above: Performed By: #### H GB #### [facility] [address] [place] [address] Cat Sitter: Kehinde Woodward MD Hemoglobin (Bld) [Mass/Vol] 8.3 g/dL Low 13 - 17 g/dL [place] Interpretation and review of laboratory results Abnormal [place] Hemoglobinon 08-04-2019 Hemoglobin (Bld) [Mass/Vol] 8.0 g/dL Low 13.0-17.0 [facility] Comment on above: Performed By: #### H GB #### [facility] [address] [place] [address] Cat Sitter: Kehinde Woodward MD Hemoglobin A1Con 08-03-2019 HbA1c (Bld) [Mass fraction] % Low 4.8-5.9 [facility] Comment on above: Result Comment: The ADA and AACC recommend providing the estimated average glucose result to permit better patient understanding of their HBA1c result. Performed By: #### G LYHGB #### [facility] [address] [place] [address] Cat Sitter: Kehinde Woodward MD Glucose [Mass/Vol] mg/dL mg/dL [place], [place] Comment on above: The ADA and AACC rec ommend providing the estimated average glucose result to permit better patient understanding of their HBA1c result. HbA1c (Bld) [Mass fraction] % Low 4.8 - 5.9 % [place], [place] Interpretation and review of laboratory results Abnormal [place] Hemoglobinon 08-01-2019 Hemoglobin (Bld) [Mass/Vol] 8.1 g/dL Low 13.0-17.0 [facility] Comment on above: Performed By: #### H GB #### [facility] [address] [place] [address] Cat Sitter: Kehinde Woodward MD Hemoglobin (Bld) [Mass/Vol] 8.1 g/dL Low 13 - 17 g/dL [place] Interpretation and review of laboratory results Abnormal [place] Hgb/Hcton 06-10-2019 Hematocrit (Bld) [Volume fraction] 24.3 % Low 40.7-50.3 [facility] Comment on above: Performed By: #### H H #### [facility] [address] [place] [address] Cat Sitter: Kehinde Woodward MD Hemoglobin (Bld) [Mass/Vol] 7.4 g/dL Low 13.0-17.0 [facility] Comment on above: Performed By: #### H H #### [facility] [address] [place] [address] Cat Sitter: Kehinde Woodward MD Hemoglobinon 06-01-2019 Hemoglobin (Bld) [Mass/Vol] 7.2 g/dL Low 13.0-17.0 [facility] Comment on above: Performed By: #### H GB #### [facility] [address] [place] [address] Cat Sitter: Kehinde Woodward MD K (Potassium)on 01-14-2019 Potassium [Moles/Vol] 3.6 mmol/L Low 3.7-5.3 [facility] Comment on above: Performed By: #### K #### [facility] [address] [place] [id number] Cat Sitter: Kehinde Woodward MD Otheron 10-19-2018 IMPRESSION: 1. [...] characteristics determined by Toxicology Laboratory at [facility]. It has not been cleared or approved [...] Amitriptyline(50), Amphetamine(250), Atenolol(500), Barbiturates(1000), Benzoylecgonine(50), Buprenorphine(50), Bupropion(25), Caffeine(26100), Chlordiazepoxide(50), Chlorpheniramine(100), Chlorpromazine(50), Citalopram(100), Clonazepam(200), Cocaine(25), Codeine(200), [...] Code LAB, [facility] TOXICOLOGY SCREEN URINE - [facility] 10-12-2018 Drugs identified Screen Nom (U) For Medical Purposes Only, Non-forensic, screen results are presumptive. No confirmatory testing will follow. Invalid Interpretation Code LAB, [facility] Comment on above: This Liquid Chromato graphy Mass Spectrometry (LC/MS/MS) test was developed and its performance characteristics determined by Toxicology Laboratory at [facility]. It has not been cleared or approved [...] Amitriptyline(50), Amphetamine(250), Atenolol(500), Barbiturates(200), Benzoylecgonine(50), Buprenorphine(500), Bupropion(25), Caffeine(31353), Cannabinoids(THC)(50), Chlordiazepoxide(50), Chlorpheniramine(100), Chlorpromazine(50), Citalopram(100), Clonazepam(200), Cocaine(25), [...] 97.9 [degF] Kevin Sage MD Work Phone: [facility] 01-23-2024 15:04-0500 Diastolic blood pressure 67 mm[Hg] Kevin Sage MD Work Phone: [facility] 01-23-2024 15:04-0500 Heart rate 51 /min Kevin Sage MD Work Phone: [facility] 01-23-2024 15:04-0500 Respiratory rate 16 /min Kevin Sage MD Work Phone: [facility] 01-23-2024 15:04-0500 SaO2% (BldA) [Mass fraction] 94 % Kevin Sage MD Work Phone: [facility] 01-23-2024 15:04-0500 Systolic blood pressure 151 mm[Hg] Kevin Sage MD Work Phone: [facility] 02-24-2024 10:46-0500 Body mass index (BMI) [Ratio] 30.94 kg/m2 Kevin Sage MD Work Phone: [facility] 01-23-2024 10:46-0500 Body weight 89.6 kg Kevin Sage MD Work Phone: [facility] 01-18-2024 11:21-0500 Body height 170.2 cm Kevin Sage MD Work Phone: [facility] 01-06-2024 09:04-0500 Body height 170.2 cm Zuly Kiana MAILROOM ASSISTANT Work Phone: [facility] 01-06-2024 09:04-0500 Body mass index (BMI) [Ratio] 32.42 kg/m2 Zuly Aichholz MAILROOM ASSISTANT Work Phone: [facility] 01-06-2024 09:04-0500 Body temperature 97.81 [degF] Zuly Lexiehlatishaz MAILROOM ASSISTANT Work Phone: [facility] 01-06-2024 09:04-0500 Body weight 93.89 kg Uzly Aichholz MAILROOM ASSISTANT Work Phone: [facility] 01-06-2024 09:04-0500 Diastolic blood pressure 70 mm[Hg] Zuly Lexiehlatishaz MAILROOM ASSISTANT Work Phone: [facility] 01-06-2024 09:04-0500 Heart rate 95 /min Zuly Aichholz MAILROOM ASSISTANT Work Phone: [facility] 01-06-2024 09:04-0500 Respiratory rate 17 /min Zuly Aichholz MAILROOM ASSISTANT Work Phone: [facility] 01-06-2024 09:04-0500 SaO2% (BldA) [Mass fraction] 99 % Zuly Lexiehholz MAILROOM ASSISTANT Work Phone: [facility] 01-06-2024 09:04-0500 Systolic blood pressure 138 mm[Hg] Zuly Lexiehholz MAILROOM ASSISTANT Work Phone: [facility] 09-11-2023 10:31-0400 Body temperature 97.81 [degF] Steve Yeison MBBS Work Phone: [facility] 09-11-2023 10:31-0400 Diastolic blood pressure 66 mm[Hg] Steve Yeison MBBS Work Phone: [facility] 09-11-2023 10:31-0400 Heart rate 70 /min Steve Yeison MBBS Work Phone: [facility] 09-11-2023 10:31-0400 Respiratory rate 20 /min Steve Yeison MBBS Work Phone: [facility] 09-11-2023 10:31-0400 SaO2% (BldA) [Mass fraction] 91 % Steve Yeison MBBS Work Phone: [facility] 09-11-2023 10:31-0400 Systolic blood pressure 129 mm[Hg] Steve Yeison MBBS Work Phone: [facility] 09-10-2023 15:50-0400 Body mass index (BMI) [Ratio] 31.99 kg/m2 Steve Yeison MBBS Work Phone: [facility] 09-10-2023 15:50-0400 Body weight 92.67 kg Steve Yeison MBBS Work Phone: [facility] 09-02-2023 07:32-0400 Body height 170.2 cm Steve Yeison MBBS Work Phone: [facility] 08-28-2023 13:33-0400 Body height 170.2 cm Steve Yeison MBBS Work Phone: [facility] 08-28-2023 13:33-0400 Body mass index (BMI) [Ratio] 32.12 kg/m2 Steve Yeison MBBS Work Phone: [facility] 08-28-2023 13:33-0400 Body temperature 97.3 [degF] Stevemassiel Farrari MBBS Work Phone: [facility] 08-28-2023 13:33-0400 Body weight 93.03 kg Stevemassiel Farrari MBBS Work Phone: [facility] 08-28-2023 13:33-0400 Diastolic blood pressure 41 mm[Hg] Steve Yeison MBBS Work Phone: [facility] 08-28-2023 13:33-0400 Heart rate 116 /min Stevemassiel Farrari MBBS Work Phone: [facility] 08-28-2023 13:33-0400 Systolic blood pressure 106 mm[Hg] Steve Yeison MBBS Work Phone: [facility] 06-12-2023 14:50-0400 Body mass index (BMI) [Ratio] 33.8 kg/m2 Rebeca Olsen SEALER OPERATOR-WATER HYDRANT INSTALLER Work Phone: [facility] 06-12-2023 14:50-0400 Body temperature 97.3 [degF] Rebeca Olsen SEALER OPERATOR-WATER HYDRANT INSTALLER Work Phone: [facility] 06-12-2023 14:50-0400 Body weight 97.89 kg Rebeca Olsen SEALER OPERATOR-WATER HYDRANT INSTALLER Work Phone: [facility] 06-12-2023 14:50-0400 Diastolic blood pressure 77 mm[Hg] Rebeca Olsen SEALER OPERATOR-WATER HYDRANT INSTALLER Work Phone: [facility] 06-12-2023 14:50-0400 Heart rate 76 /min Rebeca Olsen SEALER OPERATOR-WATER HYDRANT INSTALLER Work Phone: [facility] 06-12-2023 14:50-0400 Systolic blood pressure 146 mm[Hg] Rebeca Olsen SEALER OPERATOR-WATER HYDRANT INSTALLER Work Phone: [facility] 01-16-2023 08:57-0500 Body height 170.2 cm [facility] 3 Work Phone: [facility] 01-16-2023 08:57-0500 Body mass index (BMI) [Ratio] 33.66 kg/m2 [facility] Work Phone: [facility] 01-16-2023 08:57-0500 Body temperature 97.3 [degF] [facility] Work Phone: [facility] 01-16-2023 08:57-0500 Body weight 97.48 kg [facility] 3 Work Phone: [facility] 01-16-2023 08:57-0500 Diastolic blood pressure 75 mm[Hg] [facility] Work Phone: [facility] 01-16-2023 08:57-0500 Heart rate 76 /min [facility] 3 Work Phone: [facility] 01-16-2023 08:57-0500 Systolic blood pressure 142 mm[Hg] [facility] Work Phone: [facility] 09-10-2022 09:38-0400 Body height 170.2 cm Ryan Yepez MD Work Phone: [facility] 09-10-2022 09:38-0400 Body mass index (BMI) [Ratio] 33.67 kg/m2 Ryan Yepez MD Work Phone: [facility] 09-10-2022 09:38-0400 Body weight 97.52 kg Ryan Yepez MD Work Phone: [facility] 09-10-2022 09:38-0400 Diastolic blood pressure 83 mm[Hg] Ryan Yepez MD Work Phone: 8(316)243-160416 [place] [address] 09-10-2022 09:38-0400 Heart rate 64 /min Ryan Yepez MD Work Phone: 2(000)923-723116 [place] [address] 09-10-2022 09:38-0400 SaO2% (BldA) [Mass fraction] 96 % Ryan Yepez MD Work Phone: 6(264)052-306416 [place] [address] 09-10-2022 09:38-0400 Systolic blood pressure 129 mm[Hg] Ryan Yepez MD Work Phone: 3(694)742-141216 [place] [address] 07-07-2022 13:48-0400 Diastolic blood pressure 76 mm[Hg] Ryan Yepez MD Work Phone: 5(728)039-430016 [place] [address] 07-07-2022 13:48-0400 Heart rate 82 /min Ryan Yepez MD Work Phone: 4(191)192-733616 [place] [address] 07-07-2022 13:48-0400 SaO2% (BldA) [Mass fraction] 96 % Ryan Yepez MD Work Phone: 1(832)156-778816 [place] [address] 07-07-2022 13:48-0400 Systolic blood pressure 141 mm[Hg] Ryan Yepez MD Work Phone: 6(771)607-533516 [place] [address] 06-27-2022 13:32-0400 Body height 170.2 cm Ryan Yepez MD Work Phone: 1(862)252-900016 [place] [address] 06-27-2022 13:32-0400 Body mass index (BMI) [Ratio] 34.24 kg/m2 Ryan Yepez MD Work Phone: 8(924)705-147816 [place] [address] 06-27-2022 13:32-0400 Body temperature 98.6 [degF] Ryan Yepez MD Work Phone: 5(557)113-125416 [place] [address] 06-27-2022 13:32-0400 Body weight 99.16 kg Ryan Yepez MD Work Phone: [facility] 06-27-2022 13:32-0400 Diastolic blood pressure 78 mm[Hg] Ryan Yepez MD Work Phone: [facility] 06-27-2022 13:32-0400 Heart rate 77 /min Ryan Yepez MD Work Phone: [facility] 06-27-2022 13:32-0400 SaO2% (BldA) [Mass fraction] 95 % Ryan Yepez MD Work Phone: [facility] 06-27-2022 13:32-0400 Systolic blood pressure 121 mm[Hg] Ryan Yepez MD Work Phone: [facility] 06-27-2022 10:52-0400 Body height 170.2 cm Rena Brewster RN [facility] 06-27-2022 10:52-0400 Body mass index (BMI) [Ratio] 34.46 kg/m2 Rena Brewster RN [facility] 06-27-2022 10:52-0400 Body temperature 98.2 [degF] Rena Brewster RN [facility] 06-27-2022 10:52-0400 Body weight 99.79 kg Rena Brewster RN [facility] 06-27-2022 10:52-0400 Diastolic blood pressure 73 mm[Hg] Rena Brewster RN [facility] 06-27-2022 10:52-0400 Heart rate 78 /min Rena Brewster RN [facility] 06-27-2022 10:52-0400 Respiratory rate 20 /min Rena Brewster RN [facility] 06-27-2022 10:52-0400 SaO2% (BldA) [Mass fraction] 97 % Rena Brewster RN [facility] 06-27-2022 10:52-0400 Systolic blood pressure 135 mm[Hg] Rena Brewster RN [facility] 06-12-2022 14:23-0400 Body mass index (BMI) [Ratio] 34.59 kg/m2 Steve Yeison MBBS Work Phone: [facility] 06-12-2022 14:23-0400 Body temperature 97 [degF] Steve Yeison MBBS Work Phone: [facility] 06-12-2022 14:23-0400 Body weight 100.2 kg Steve Yeison MBBS Work Phone: [facility] 06-12-2022 14:23-0400 Diastolic blood pressure 66 mm[Hg] Steve Yeison MBBS Work Phone: [facility] 06-12-2022 14:23-0400 Heart rate 63 /min Steve Yeison MBBS Work Phone: [facility] 06-12-2022 14:23-0400 Systolic blood pressure 133 mm[Hg] Steve Yeison MBBS Work Phone: [facility] 05-20-2022 15:21-0400 Body temperature 97.9 [degF] Gian Villatoro MD Work Phone: [facility] 05-20-2022 15:21-0400 Diastolic blood pressure 64 mm[Hg] Gian Villatoro MD Work Phone: [facility] 05-20-2022 15:21-0400 Heart rate 55 /min Gian Villatoro MD Work Phone: [facility] 05-20-2022 15:21-0400 Respiratory rate 15 /min Gian Villatoro MD Work Phone: [facility] 05-20-2022 15:21-0400 SaO2% (BldA) [Mass fraction] 95 % Gian Villatoro MD Work Phone: [facility] 05-20-2022 15:21-0400 Systolic blood pressure 145 mm[Hg] Gian Villatoro MD Work Phone: [facility] 05-19-2022 12:15-0400 Body mass index (BMI) [Ratio] 35.87 kg/m2 Gian Villatoro MD Work Phone: [facility] 05-19-2022 12:15-0400 Body weight 103.92 kg Gian Villatoro MD Work Phone: [facility] Comment on above: standing scale 05-16-2022 16:19-0400 Body height 170.2 cm Gian Villatoro MD Work Phone: [facility] 10-19-2018 08:44-0500 BMI (Body Mass Index) 26.58 kg/m2 [facility] Work Phone: 10-19-2018 08:44-0500 BP Diastolic 76 mm[Hg] [facility] Work Phone: 10-19-2018 08:44-0500 BP Systolic 144 mm[Hg] [facility] Work Phone: 10-19-2018 08:44-0500 Height 172.7 cm [facility] Work Phone: 10-19-2018 08:44-0500 Pulse (Heart Rate) 92 /min [facility] Work Phone: 10-19-2018 08:44-0500 Pulse Oximetry 99 % [facility] Work Phone: 10-19-2018 08:44-0500 Respiratory Rate 16 /min [facility] Work Phone: 10-19-2018 08:44-0500 Weight 79.29 kg [facility]in [facility] Work Phone: 10-12-2018 09:50-0500 BMI (Body Mass Index) 27.24 kg/m2 [facility] Work Phone: 10-12-2018 09:50-0500 Body Temperature 98.6 [degF] [facility] Work Phone: 10-12-2018 09:50-0500 BP Diastolic 80 mm[Hg] [facility] Work Phone: 10-12-2018 09:50-0500 BP Systolic 157 mm[Hg] [facility] Work Phone: 10-12-2018 09:50-0500 Height 169.5 cm [facility] Work Phone: 10-12-2018 09:50-0500 Pulse (Heart Rate) 94 /min [facility] Work Phone: 10-12-2018 09:50-0500 Weight 78.29 kg [facility] Work Phone: Encounters Encounter Date Encounter Type Care Provider Facility Start: 01-16-2024 Encounter for other preprocedural examination KELVIN PACHECO [facility] Start: 01-16-2024 End: 01-23-2024 Evaluation and management of inpatient PROVIDER NOT IN SYSTEM Facility:[facility] Start: 01-16-2024 End: 01-23-2024 Evaluation and management of inpatient Kevin Sage MD Work Phone: [id number] Comment on above: Pleural effusion on right Start: 01-16-2024 End: 01-23-2024 Patient encounter status Kevin Sage MD Work Phone: [facility] Work Phone: Start: 01-12-2024 End: 01-12-2024 ambulatory Angel Fete RPh,PharmD [facility] [place] Start: 01-12-2024 End: 01-12-2024 Patient encounter procedure Angel Fete RPh,PharmD [facility] Start: 01-08-2024 Clinisync Result Encounter Generic External Data Provider [facility] External Department Unsolicited Start: 01-08-2024 Clinisync Result Encounter Generic External Data Provider [facility] External Department Unsolicited Start: 01-06-2024 End: 01-06-2024 ambulatory ZULY AICHHOLZ Not Available Start: 01-06-2024 End: 01-06-2024 Office outpatient visit 25 minutes Zuly Marissaz MAILROOM ASSISTANT Work Phone: [facility] Comment on above: Bilateral lower extr emity edema (Primary Dx); 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); Atherosclerosis 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); Obesity (BMI 30-39.9); DARLENE (obstructive sleep apnea); Tremor; Immunocompromised ([facility]); Primary hypertension ([facility]); Shortness of breath Start: 01-01-2024 Clinisync Result Encounter Generic External Data Provider [facility] External Department Unsolicited Start: 01-01-2024 Clinisync Result Encounter Generic External Data Provider [facility] External Department Unsolicited Start: 11-03-2023 End: 11-03-2023 ambulatory ZULY AICHHOLZ Not Available Start: 10-06-2023 ambulatory Angel Fete RPh,PharmD [facility] Start: 10-06-2023 Patient encounter procedure Angel Fete RPh,PharmD [facility] [place] Start: 09-29-2023 ambulatory ZULY AICHHOLZ Facility: [facility] Start: 09-24-2023 ambulatory ZULY AICHHOLZ Facility: [facility] Start: 09-23-2023 ambulatory ZULY AICHHOLZ Facility: [facility] Start: 09-15-2023 ambulatory ZULYTray BRUNO Facility: [facility] Start: 08-28-2023 End: 09-11-2023 Evaluation and management of inpatient STEVE LATHAM Facility:[facility] Start: 08-28-2023 End: 09-11-2023 Evaluation and management of inpatient Steve Latham MBBS Work Phone: [id number] Start: 08-28-2023 ambulatory STEVE LATHAM Facility:[facility] Start: 08-28-2023 End: 08-28-2023 Office outpatient visit 25 minutes Steve Latham MBBS Work Phone: [facility] Comment on above: Immunosuppressed sta tus (Primary Dx); Kidney replaced by transplant; Aftercare following organ transplant; High risk medication use; Other general symptoms and signs; Abnormal blood chemistry; Hypertension secondary to other renal disorders Start: 08-19-2023 ambulatory Meka rueda [facility] [place] Start: 08-19-2023 Patient encounter procedure Meka Munoz [facility] [place] Start: 06-12-2023 ambulatory REBECA M PRETTY Joyner ty:[facility] Start: 06-12-2023 End: 06-12-2023 Office outpatient visit 25 minutes Steve Latham MBBS Work Phone: [facility] Comment on above: 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) Start: 06-10-2023 ambulatory Maren Bar RPh,PharmD [facility] [place] Start: 06-10-2023 Patient encounter procedure Maren Bar RPh,PharmD [facility]patient [facility] [place] Start: 05-26-2023 ambulatory ZULY BRUNO Facility: [facility] Start: 04-28-2023 End: 04-29-[address] DOCTOR EVANS Facility: Start: 04-13-2023 End: 04-13-2023 ambulatory [facility] Start: 03-12-2023 ambulatory Angel Carpio RPlydia,PharmD Pharmacy Outpatient [facility] [place] Start: 03-12-2023 Patient encounter procedure Angel Fete RPh,PharmD Pharmacy Outpatient [facility] [place] Start: 03-10-2023 ambulatory Angel Carpio RPh,PharmD [facility] [place] Start: 03-10-2023 Patient encounter procedure Angel Carpio RPh,PharmD [facility] [place] Start: 03-02-2023 End: 03-03-[address] DOCTOR EVANS Facility:[facility] Start: 01-16-2023 End: 01-16-2023 Office outpatient visit 25 minutes Daisha Max DO Work Phone: [facility] Comment on above: Abnormal blood chemi [...] MD Work Phone: [facility] Comment on above: BPH with obstruction /lower urinary tract symptoms (Primary Dx); Encounter for screening for malignant neoplasm of prostate Start: 08-28-2022 End: 08-29-2022 ambulatory ROB BRUNO Facility:[facility] Start: 08-14-2022 End: 08-15-[address] DOCTOR EVANS Facility:[facility] Start: 07-07-2022 End: 07-07-2022 Patient encounter procedure Ryan Yepez MD Work Phone: [facility] Comment on above: Other hydronephrosis (Primary Dx); [...] MD Work Phone: [facility] Comment on above: Other hydronephrosis (Primary Dx) [...] ALEXANDER Facility:[facility] Start: 03-14-2022 ambulatory Comfort Rivera [facility] Work Phone: [facility] [place] Start: 03-14-2022 Patient encounter procedure Comfort Rivera [facility] Work Phone: [facility]patient [facility] [place] Start: 06-14-2021 End: 06-14-2021 ambulatory [facility] Work Phone: [facility] Start: 06-14-2021 Patient encounter procedure [facility] Work Phone: [facility] Start: 01-20-2020 End: 01-27-2020 Patient encounter procedure PEPE CASE Facility:[facility] Start: 01-06-2020 End: 01-07-2020 [facility] Start: 01-06-2020 End: 01-06-2020 Subsequent hospital visit by physician [facility] Start: 10-24-2019 End: 10-25-2019 Patient encounter procedure TANA Colón [facility] Start: 10-24-2019 End: 10-24-2019 Subsequent hospital visit by physician [facility] Start: 08-27-2019 End: 08-28-2019 Patient encounter procedure RENA GUDINO [facility] Start: 08-27-2019 End: 08-27-2019 Subsequent hospital visit by physician [facility] Start: 08-08-2019 End: 08-09-2019 Patient encounter procedure [facility] Start: 08-08-2019 End: 08-08-2019 Subsequent hospital visit by physician [facility] Start: 08-03-2019 End: 08-04-2019 Patient encounter procedure [facility] Start: 08-03-2019 End: 08-03-2019 Subsequent hospital visit by physician [facility] Start: 08-01-2019 End: 08-02-2019 Patient encounter procedure [facility] Start: 08-01-2019 End: 08-01-2019 Subsequent hospital visit by physician [facility] Start: 06-10-2019 End: 06-11-2019 Patient encounter procedure [facility] Start: 06-01-2019 End: 06-02-2019 Patient encounter procedure [facility] Start: 01-14-2019 End: 01-15-2019 Patient encounter procedure [facility] Start: 11-17-2018 End: 11-17-2018 Patient encounter procedure Melania Pierson [facility] Pre Transplant Office Comment on above: Social Work Follow-u p Start: 10-19-2018 End: 10-19-2018 Patient encounter Autumn [facility] Pre Transplant Office Comment on [...] 10-13-2018 End: 10-13-2018 Patient encounter procedure Autumn [facility] Pre Transplant Office Comment on above: Reschedule Outside Medical Allan rds Request Start: 10-12-2018 End: 10-12-2018 Patient encounter procedure Sophie Singerhaja [facility] Pre Transplant Office Comment on above: Alcoholic cirrhosis, unspecified whether ascites present (Primary Dx); Pre-transplant evaluation for liver transplant Start: 10-12-2018 End: 10-12-2018 Office outpatient new 60 minutes Alfredito Restrepo Work Phone: [facility] Pre Transplant Office Comment on above: Alcoholic cirrhosis, unspecified whether ascites present; ESRD (end stage renal disease) on dialysis; Pre-transplant evaluation for liver transplant Start: 10-06-2018 End: 10-06-2018 Patient encounter procedure Yovani Magalie Orr Work Phone: Department of Radiology Comment on above: Canceled (Insurance Company Redirected Pt) Start: 10-05-2018 Patient encounter status [facility] Work Phone: [facility] Procedures Date Procedure Procedure Detail Performing [...] above: Performed By: #### X M ####[facility] (DEFAULT)[address] [place] [address] Start: 01-22-2024 Assay of magnesium Just in Jake LUZ Work Phone: Start: 01-22-2024 Drug screen quantita tive tacrolimus Arelis Mera MD Work Phone: Start: 01-21-2024 Assay of magnesium Just in aJke LUZ Work Phone: Start: 01-21-2024 Drug screen [...] Start: 01-20-2024 ITRACONAZOLE LEVEL Jennifer norbert Caldwellowan [facility] Work Phone: Start: 01-20-2024 Oscillating [...] quantifica tion each organism Melania Ortiz Alarcon [facility] Work Phone: Start: 01-18-2024 Echocardiography [...] AURIS SCREEN BY PCR Carol Ann Capps SEALER OPERATOR[employer]TREE CHIPPER Work Phone: Start: 01-08-2024 ALL CBC WITH [...] AURIS SCREEN BY PCR Carol Ann Capps SEALER OPERATOR-TREE [employer]IP[employer] Work Phone: Start: 08-28-2023 CBC AND ELECTRONIC [...] above: Performed By: #### C MP #### [facility] [address] [place] [address] Dr. Dwight Waters Start: 07-07-2022 Rmvl nfros [...] recipient S/P liver trans plant [facility] Work Phone: Start: 04-08-2020 H/O: liver recipient Liver tra nsplant recipient [facility] Work Phone: Start: 01-06-2020 Potassium [...] De ceased-donor kidney transplant recipient [facility] Work Phone: Start: 06-10-2019 HEMOGLOBIN AND HEMAT OCRIT, BLOOD ROB KASMANI Start: 06-01-2019 Blood count hemoglobin ROB KASMANI Start: 03-22-2019 Lipid 1996 panel - S fabricio or Plasma [facility] Work Phone: Start: 01-14-2019 Potassium [...] End: 10-12-2018 Assay of parathormone Yovani Mejias [employer] Work Phone: Start: 10-12-2018 End: 10-12-2018 Assay of phosphatase alkaline Yovani [employer] Work Phone: Start: 10-12-2018 End: 10-12-2018 Bilirubin total Yovani Mejias [employer] Work Phone: Start: 10-12-2018 End: 10-12-2018 Calcium total Yovani Mejias [employer] Work Phone: Start: 10-12-2018 End: 10-12-2018 CBC, EDIF, PLATELET Yovani Mejias [employer] Work Phone: Start: 10-12-2018 End: 10-12-2018 Creatinine blood Yovani Mejias [employer] Work Phone: Start: 10-12-2018 End: 10-12-2018 Drug screening cannabinoids natural Yovani Mejias [employer] Work Phone: Start: 10-12-2018 End: 10-12-2018 Hepatitis a antibody haab Yovani Mejias [employer] Work Phone: Start: 10-12-2018 End: 10-12-2018 Hepatitis b core antibody hbcab total Yovani [employer] Work Phone: Start: 10-12-2018 End: 10-12-2018 Hepatitis b surf antibody hbsab Yovani Mejias [employer] Phone: Start: 10-12-2018 End: 10-12-2018 Hepatitis c antibody Yovani Mejias [employer] Work Phone: Start: 10-12-2018 End: 10-12-2018 Iaad ia hepatitis b surface antigen Yovani Mejias [employer] Work Phone: Start: 10-12-2018 End: 10-12-2018 Iaad ia hiv-1 ag w/hiv-1 & hiv-2 antbdy single Yovani Mejias [employer] Phone: Start: 10-12-2018 End: 10-12-2018 PSA screening Yovani Mejias [employer] Work Phone: Start: 10-12-2018 End: 10-12-2018 Thromboplastin [...] 09-20-2029 Screening for malignant neoplasm of colon [facility] Start: 01-23-2025 Potassium [Moles/volume] in Serum or Plasma POTASSIUM [facility] Start: 08-31-2024 Screening for malignant neoplasm of lung [facility] Start: 06-17-2024 End: 06-17-2024 ambulatory [facility] Transplant [facility] Start: 06-17-2024 End: 06-17-2024 Patient encounter procedure [facility] Start: 03-22-2024 Fasting lipid profile LIPID SCREENING [facility] Start: 03-22-2024 Lipid panel [facility] Start: 02-26-2024 End: 02-26-2024 Patient encounter procedure 02/26/2024 9:30 AM EDT Office Visit [facility] [address] [place] [phone] Candie Almaguer MD [address] [place] [phone] [facility] Start: 02-11-2024 End: 02-11-2024 Patient encounter procedure 02/11/2024 10:30 AM EDT Office Visit [facility] [address] [place] [address] Zuly Bruno, BA [address] [place] [phone] [facility] Start: 02-09-2024 End: 02-09-2024 Telemedicine consultation with patient 02/09/2024 3:30 PM EDT Telemedicine Infectious Diseases Care [facility] [address] [place] [phone] Hakeem Alamo MD [address] [place] [address] Infectious Diseases Care [facility] Start: 01-15-2024 End: 01-15-2024 ambulatory [facility] Transplant [facility] Start: 01-15-2024 End: 01-15-2024 Patient encounter procedure [facility] Start: 01-06-2024 End: 01-06-2026 Echocardiogram 2D complete Echocardiogram 2D complete Echocardiography Routine DARLENE (obstructive sleep apnea) Primary hypertension (CMS/HCC) Bilateral lower extremity edema Shortness of breath Expected: 01/06/2024 (Approximate), Expires: 01/06/2026 [facility] Work Phone: Comment on above: Expected: 01/06/2024 (Approximate), Expi res: 01/06/2026 Start: 01-06-2024 End: 01-06-2024 Patient encounter procedure 01/06/2024 9:00 AM EST Office Visit [facility] [address] [place] [phone] Zuly Bruno NP [address] [place] [phone] [facility] Start: 12-08-2023 End: 09-07-2024 CT Chest WO contrast [facility] Work Phone: Start: 12-01-2023 COVID-19 VACCINE (2 - Moderna risk series) COVID-19 VACCINE (2 - Moderna risk series) [facility] Start: 09-23-2023 End: 09-23-2023 ambulatory [facility] Start: 09-23-2023 End: 09-23-2023 Telemedicine consultation with patient 09/23/2023 4:00 PM EDT Telemedicine Infectious Diseases Care [facility] [address] [place] [address] Hakeem Alamo MD [address] [place] [phone] Infectious Diseases Care [facility] Start: 09-15-2023 End: 09-10-2024 ITRACONAZOLE LEVEL [facility] Start: 08-25-2023 End: 08-25-2024 ALLOSCREEN RECIPIENT (POST TX PRA) ALLOSCREEN RECIPIENT (POST TX PRA) Lab Routine Kidney replaced by transplant Aftercare following organ transplant Immunosuppressed status High risk medication use Other general symptoms and signs Abnormal blood chemistry Expected: 08/25/2023, Expires: 08/25/2024 [facility] Comment on above: Expected: 08/25/2023, Expires: Start: 07-31-2023 Influenza vaccination [facility] Start: 06-12-2023 End: 06-12-2023 Patient encounter procedure 06/12/2023 Office Visit Transplant Surgery Steve Latham MBBS [address] [place] [address] [facility] Transplant [facility] Start: 03-11-2023 End: 03-11-2023 Telemedicine consultation with patient 03/11/2023 Telemedicine Urology Ryan Yepez MD [address] [place] [address] [facility] Start: 01-16-2023 End: 01-16-2023 Patient encounter procedure 01/16/2023 Office Visit Transplant Surgery [facility] Transplant [facility] Start: 10-31-2022 End: 10-31-2022 Patient encounter procedure 10/31/2022 Office Visit Transplant Surgery Steve Latham MBBS [address] [place] [phone] [facility] Transplant [facility] Start: 09-10-2022 End: 09-10-2023 PSA screening PSA, SCREENING Lab Routine BPH with obstruction/lower urinary tract symptoms Encounter for screening for malignant neoplasm of prostate Expected: 09/10/2022 (Approximate), Expires: 09/10/2023 [facility] Comment on above: Expected: 09/10/2022 (Approximate), Expi res: 09/10/2023 Start: 08-11-2022 End: 08-11-2022 Patient encounter procedure 08/11/2022 Office Visit Urology Ryan Yepez MD [address] [place] [address] Urolog [facility] Start: 07-31-2022 Influenza vaccination [facility] Start: 07-07-2022 End: 07-07-2022 Patient encounter procedure 07/07/2022 Office Visit Urology Ryan Yepez MD [address] [facility] [address] [place] [address] Urolog [facility] Start: 07-07-2022 End: 07-07-2023 FLUORO IMAGING FOR UROLOGY [facility] Comment on above: Expected: 07/07/2022, Expires: 3 1 Occurrences starti ng 07/07/2022 until 07/07/2022 Start: 06-27-2022 End: 06-27-2022 Patient encounter procedure 06/27/2022 Office Visit Urology Ryan Yepez MD [address] [facility] [address] [place] [address] [facility] Start: 06-27-2022 End: 06-27-2023 Basic metabolic 2000 panel - Serum or Plasma BASIC METABOLIC PANEL Lab Routine Other hydronephrosis Expected: 06/27/2022, Expires: 06/27/2023 [facility] Comment on above: Expected: 06/27/2022, Expires: 3 Start: 06-27-2022 End: 06-27-2022 Patient encounter procedure 06/27/2022 Appointment Computerized Tomography Scan Ryan Yepez MD [address] [facility] [address] [place] [address] Department of Radiology Start: 06-15-2022 End: 05-16-2023 CT Abdomen and Pelvis WO contrast CT ABDOMEN/PELVIS WITHOUT CONTRAST Imaging Routine FAYE (acute kidney injury) Expected: 06/15/2022 (Approximate), Expires: 05/16/2023 [facility] Work Phone: Comment on above: Expected: 06/15/2022 (Approximate), Expi res: 05/16/2023 Start: 06-12-2022 End: 06-12-2022 Patient encounter procedure 06/12/2022 Office Visit Transplant Surgery Steve Latham MBBS [address] [place] [address] [facility] Start: 06-11-2022 End: 06-11-2023 BK VIRUS DNA QN, PCR, PLASMA BK VIRUS DNA QN, PCR, PLASMA Lab Routine Kidney replaced by transplant Liver replaced by transplant Abnormal blood chemistry Expected: 06/11/2022, Expires: 06/11/2023 [facility] Comment on above: Expected: 06/11/2022, Expires: Start: 06-04-2022 End: 06-04-2022 Patient encounter procedure 06/04/2022 Office Visit [facility] Start: 10-18-2021 End: 10-18-2021 Patient encounter procedure 10/18/2021 Office Visit Transplant Surgery Steve Latham MBBS [address] [place] [address] [facility] Start: 07-31-2021 Influenza vaccination INFLUENZA VACCINE (#1) [facility] Start: 07-26-2021 End: 07-26-2021 Patient encounter procedure 07/26/2021 Office Visit Transplant Surgery [facility] Start: 2021 Prostate specific antigen measurement [facility] Start: 2021 Screening for malignant neoplasm of lung LUNG CANCER SCREENING [facility] Start: 2021 Zoster vaccine hzv live for subcutaneous use ZOSTER (SHINGLES) VACCINE (1 of 2) [facility] Start: 09-20-2020 Colonoscopy COLORECTAL CANCER SCREENING DISCUSSION [facility] Start: 09-20-2020 Screening for malignant neoplasm of colon [facility] Start: 07-31-2019 [facility] Start: 05-22-2019 Annual Wellness Visit (AWV) Annual Wellness Visit (AWV) [facility] Start: 04-18-2019 End: 10-19-2019 Ultrasonography of abdomen US ABDOMEN RUQ/LIVER/GB Routine Cirrhosis of liver without ascites, unspecified hepatic cirrhosis type Expected: 04/18/2019 (Approximate), Expires: 10/19/2019 [facility] Work Phone: Comment on above: Expected: 04/18/2019 (Approximate), Expi res: 10/19/2019 Start: 01-25-2019 End: 01-25-2019 Ambulatory 01/25/2019 Office Visit Gastroenterology Christin Elizabeth, SEALER OPERATOR-WATER HYDRANT INSTALLER [address] [place] [address] Division of Gastroenterology and Hepatology Gavin Start: 11-19-2018 End: 11-19-2018 Ambulatory 11/19/2018 Appointment [facility] Start: 11-19-2018 End: 11-19-2018 Ambulatory [facility] Start: 10-19-2018 End: 10-19-2018 Ambulatory Ultrasound Jakob Start: 10-12-2018 End: 10-12-2019 Hemoglobin A1c/Hemoglobin.total mass fraction (Bld) HEMOGLOBIN A1C Routine Alcoholic cirrhosis, unspecified whether ascites present Pre-transplant evaluation for liver transplant Expected: 10/12/2018, Expires: 10/12/2019 [facility] Work Phone: Comment on above: Expected: 10/12/2018, Expires: 9 Start: 10-12-2018 End: 10-12-2019 TYPE AND SCREEN - NOT FOR TRANSFUSION TYPE AND SCREEN - NOT FOR TRANSFUSION Routine Alcoholic cirrhosis, unspecified whether ascites present Pre-transplant evaluation for liver transplant Expected: 10/12/2018, Expires: 10/12/2019 [facility] Work Phone: Comment on above: Expected: 10/12/2018, Expires: 9 Start: 07-31-2018 Influenza vaccination INFLUENZA VACCINE (#1) [facility] Work Phone: Start: 2011 Fasting lipid profile LIPID SCREENING [facility] Work Phone: Start: 2011 Lipid screen Lipid screen [place], [place] Start: 1990 DTaP/Tdap/Td vaccine (1 - Tdap) DTaP/Tdap/Td vaccine (1 - Tdap) [place], [place] Start: 1990 Hepatitis B vaccination HEP B VACCINE (1 of 3 - 19+ 3-dose series) [facility] Start: 1990 Hepatitis B Vaccine (1 of 3 - Risk Recombivax 3-dose series) Hepatitis B Vaccine (1 of 3 - Risk Recombivax 3-dose series) [place], [place] Start: 1990 Third diphtheria, tetanus and acellular pertussis (DTaP) vaccination [facility] Start: 1990 Zoster vaccine hzv live for subcutaneous use ZOSTER (SHINGLES) VACCINE (1 of 2) [facility] Start: 1990 [facility] Start: 1989 Tetanus vaccination TETANUS [facility] Start: 1986 HIV screen HIV screen [place], [place] Start: 02-17-1984 HIV screening HIV SCREENING DISCUSSION [facility] Work Phone: Start: 1983 COVID-19 VACCINE (1) COVID-19 VACCINE (1) [facility] Start: 1982 DTaP/Tdap/Td vaccine (1 - Tdap) DTaP/Tdap/Td vaccine (1 - Tdap) [place], [place] Start: 1977 Pneumococcal 0-64 years Vaccine (1 of 3 - PCV13) Pneumococcal 0-64 years Vaccine (1 of 3 - PCV13) [place], [place] Start: 1977 PNEUMOCOCCAL VACCINE SERIES (1 - PCV) PNEUMOCOCCAL VACCINE SERIES (1 - PCV) [facility] Start: 1977 PNEUMOCOCCAL VACCINE SERIES (1 of 2 - PCV) PNEUMOCOCCAL VACCINE SERIES (1 of 2 - PCV) [facility] Start: 1977 [facility] Start: 02-17-1976 COVID-19 VACCINE (#1) COVID-19 VACCINE (#1) [facility] Start: 02-17-1976 [facility] Start: 1971 COVID-19 VACCINE (#1) COVID-19 VACCINE (#1) [facility] Start: 1971 Hepatitis B vaccination HEP B VACCINE (1 of 3 - 3-dose series) [facility] Start: 1971 Medicare Annual Wellness (AWV) Medicare Annual Wellness (AWV) [facility] Start: 1971 Screening for malignant neoplasm of colon [facility] Start: 1971 Tetanus vaccination [facility] BK VIRUS DNA QN, PCR , PLASMA BK VIRUS DNA QN, PCR, PLASMA Lab Routine Kidney replaced by transplant Liver replaced by transplant Abnormal blood chemistry 06/12/2022 3:38 PM EDT [facility] CALCULI, URINARY (KIDNEY STONE) CALCULI, URINARY (KIDNEY STONE) Fluids Routine 05/19/2022 8:16 AM EDT [facility] Work Phone: CANNABINOIDS, QUANT (URINE)THC CONFIRMATION CANNABINOIDS, QUANT (URINE)THC CONFIRMATION Routine Alcoholic cirrhosis, unspecified whether ascites present ESRD (end stage renal disease) on dialysis Pre-transplant evaluation for liver transplant 10/12/2018 12:57 PM [facility] Work Phone: End: 09-10-2024 CHEM 6 (LYTES, BUN CREA) [facility] EBV VCA IGG AB EBV VCA IGG AB R outine Alcoholic cirrhosis, unspecified whether ascites present ESRD (end stage renal disease) on dialysis Pre-transplant evaluation for liver transplant 10/12/2018 12:57 PM [facility] Work Phone: Fungus identified in Unspecified specimen by Culture [facility] HLA TYPING (SOLID ORGAN) HLA TYPING (SOLID ORGAN) Routine Alcoholic cirrhosis, unspecified whether ascites present ESRD (end stage renal disease) on dialysis Pre-transplant evaluation for liver transplant 10/12/2018 12:57 PM [facility] Work Phone: HSV 1 AND 2 IGG ANTIBODY HSV 1 AND 2 IGG ANTIBODY Routine Alcoholic cirrhosis, unspecified whether ascites present ESRD (end stage renal disease) on dialysis Pre-transplant evaluation for liver transplant 10/12/2018 12:57 PM [facility] Work Phone: 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 specific culture [facility] PLACEMENT NEPHROSTOM Y CATHETER PERCUTANEOUS W/ IMAGE GUIDANCE PLACEMENT NEPHROSTOMY CATHETER PERCUTANEOUS W/ IMAGE GUIDANCE Imaging Routine Hydronephrosis due to obstruction of ureteral orifice FAYE (acute kidney injury) 05/17/2022 11:08 AM EDT [facility] [place] POST VOID RESIDUAL [place] POST VO ID RESIDUAL [place] - OFFICE PERFORMED Routine BPH with obstruction/lower urinary tract symptoms Ordered: 09/10/2022 [facility] Comment on above: Ordered: 09/10/2022 PTH INTACT PTH INTACT Routi ne Alcoholic cirrhosis, unspecified whether ascites present ESRD (end stage renal disease) on dialysis Pre-transplant evaluation for liver transplant 10/12/2018 12:57 PM [facility] Work Phone: RUBEOLA IGG AB (IMMU NE STATUS) RUBEOLA IGG AB (IMMUNE STATUS) Routine Alcoholic cirrhosis, unspecified whether ascites present ESRD (end stage renal disease) on dialysis Pre-transplant evaluation for liver transplant 10/12/2018 12:57 PM [facility] Work Phone: End: 01-16-2024 Standard ECG ECG ECG Routine One Time for 1 Occurrences starting 01/16/2024 until 01/16/2024 [facility] Comment on above: One Time for 1 Occurrences starting 12/31 until 01/16/2024 End: 09-10-2024 TACROLIMUS LEVEL, TROUGH (PRE DRUG LEVEL) [facility] VARICELLA IGG AB (IM M STATUS) VARICELLA IGG AB (IMM STATUS) Routine Alcoholic cirrhosis, unspecified whether ascites present ESRD (end stage renal disease) on dialysis Pre-transplant evaluation for liver transplant 10/12/2018 12:57 PM EST [facility] Work Phone: Immunizations Immunization Date Immunization Notes Care Provider Fa cility 11-03-2023 influenza virus vacc ine, unspecified formulation Generic Provider [facility] 11-03-2023 Moderna SARS-CoV-2 50mcg/0.5mL Booster Generic Provider [facility] Payers Date Payer Category Payer Unknown [id number] 2019 Unknown [facility] [id number] 2019-Present [id number] 2018 Medicaid MEDICAID [facility]PT [facility] JOB xxxxxxxxxxxx 2018-Present [phone] [address] [place] [address] xxxxxxxxxxxx [id number] 2018 Medicaid MEDICAID MEDICAI D [id number] 2018-Present [address] [place] [address] [id number] 2018 Medicaid [id number] 2018 Medicare MEDICARE MEDICAR E PART A AND B xxxxxxxxxxx 2018-Present [phone] [place] [address] xxxxxxxxxxx [id number] 2018 Medicare [id number] 2018 Medicare MEDICARE MEDICAR E A AND B [id number] 2018-Present [address] [place] [address] [id number] [id number] 2018 Medicare [id number] .[id number] 1971 Unknown [id number] 2.16.840.1.315757.3.579.2.173 1971 Unknown [id number] 2.16.840.1.674569.3.579.2.173 1971 Unknown [id number] 2.16.840.1.603149.3.579.2.173 1971 Unknown [id number] 2.16.840.1.619969.3.579.2.173 1971 Unknown [id number] 2.16.840.1.963579.3.579.2.173 1971 Unknown [id number] 2.16.840.1.791258.3.579.2.173 1971 Unknown [id number] 2.16.840.1.850468.3.579.2.173 1971 Unknown [id number] 2.16.840.1.931379.3.579.2.173 1971 Unknown [id number] 2.16.840.1.071449.3.579.2.647 1971 Unknown [id number] 2.16.840.1.808149.3.579.2.593 1971 Unknown [id number] 2.16.840.1.956001.3.579.2.593 1971 Unknown [id number] 2.16.840.1.481622.3.579.2.593 1971 Unknown [id number] 2.16.840.1.057984.3.579.2.593 1971 Unknown [id number] 2.16.840.1.925951.3.579.2.593 1971 Unknown [id number] 2.16.840.1.672901.3.579.2.593 1971 Unknown [id number] 2.16.840.1.713189.3.579.2.593 1971 Unknown [id number] 2.16.840.1.320811.3.579.2.593 1971 Unknown [id number] 2.16.840.1.421662.3.579.2.593 1971 Unknown [id number] 2.16.840.1.246067.3.579.2.593 1971 Unknown [id number] 2.16.840.1.345245.3.579.2.593 1971 Unknown [id number] 2.16.840.1.198491.3.579.2.593 1971 Unknown [id number] 2.16.840.1.036715.3.579.2.593 1971 Unknown [id number] 2.16.840.1.092068.3.579.2.593 1971 Unknown [id number] 2.16.840.1.780255.3.579.2.593 1971 Unknown [id number] 2.16.840.1.643401.3.579.2.125 9 1971 Unknown [id number] 2.16.840.1.882400.3.579.2.125 9 1971 Unknown [id number] 2.16.840.1.415615.3.579.2.594 1971 Unknown [id number] 1970 Unknown [id number] 1970 Unknown [id number] 1970 Unknown [id number] 1970 Unknown [id number] 1970 Unknown [id number] 1970 Unknown [id number] 1970 Unknown [id number] 1958 Medicaid [id number] 1958 Medicare [id number] Social History Date Type Detail Facility Start: 07-19-2018 End: 10-19-2018 Tobacco smoking status INIS Former smoker [facility] Start: 07-19-1988 End: 05-14-2018 History of tobacco use Current smoker [facility] Work Phone: Start: 07-19-1988 End: 05-14-2018 History of tobacco use Cigarette Smoker [facility] Work Phone: Start: 10-19-2018 End: 09-26-2023 Cigarettes smoked current (pack per day) - Reported [facility] End: 07-19-1994 History of tobacco use Chews Tobacco [facility] Work Phone: Start: 1970 Sex Assigned At Not on file [facility] Work Phone: Start: 11-03-2018 Alcohol intake Current non-drinker of alcohol (finding) [place], [place] Start: 06-22-2018 Alcohol Comment Hx of alcoholism [place] Start: 11-03-2018 End: 10-28-2023 Alcohol intake No [facility] Start: 07-19-2018 Tobacco use and exposure Former user [facility] Start: 09-06-2020 End: 09-26-2023 Alcohol intake Ex-drinker (finding) [facility] Start: 07-19-2018 Alcohol Comment stopped 05/14/2018 [facility] Start: 05-05-2022 End: 01-16-2023 Exposure to SARS-CoV-2 (event) Not sure [facility] Start: 07-07-2018 Gender identity Identifies as male gender (finding) [facility] Start: 01-16-2022 Sexual orientation Heterosexual (finding) [facility] Start: 11-03-2023 Tobacco use and exposure Smokeless [...] Dates [id number] Start: 05-23-2020 [id number] Start: 04-12-2020 [id number] [facility] Start: 05-17-2022 Comment on above: Description: Implant time-out completed by intra-procedural staff including this RN, medical delivery technician, and performing physician. The following was [...] to transport home on home oxygen supply. [facility] 01-23-2024 Miscellaneous Notes Jakob wrap & [...] Pain): verbalization of pain descriptors George Styles ([id number]) PRE OPERATIVE DIAGNOSIS High output congestive heart failure [I50.83] POST OPERATIVE DIAGNOSIS Post-Op Diagnosis Codes: * High output congestive heart failure [I50.83] PROCEDURE PERFORMED Procedure(s) (LRB): LIGATION ANGIOACCESS AVF (Left) Resection of large aneurysmic vein PRIMARY CLOSURE Yes INTRAOPERATIVE FINDINGS No significant abnormalities SURGEON Surgeons and Role: * Jyoti Bryant MD, PhD - Primary ANESTHESIOLOGIST Anesthesiologist: Celena Tiwari MD; Kehinde Gutierrez MD ABLE BODIED SEAMAN: Raheem Jasso APRN-ABLE BODIED SEAMAN Merchandising Lead Assisting: Mini Khan MD SURGICAL STAFF Childcare Worker: Zoila Alexander RN Relief Childcare Worker: Marimar Saravia RN Relief Scrub: Briseyda Self [...] patent, patient breathing easily. Report received from surgical services coordinator and report received from anesthesiology. Pt arrived [...] Axillary block. SURGEON(S): Jyoti Bryant MD, PHD EMPLOYMENT INSTRUCTIONAL ASSOCIATE: Mynor Fall MD ESTIMATED BLOOD LOSS: Minimal. [...] Jyoti Bryant MD, PHD ATTENDING SHANNON/Constanza JOB: [id number] DOC: [id number] Patient has been asleep this shift. He [...] overnight coverage, Jasper Gastelum MD, via pager #[phone] Pt- George Styles. Sarah 1082. TM1. Was wondering if he can have his Melatonin order increased to 6mg. Per pt, he usually takes 8mg at home. -SAMI Duffy #[phone] Tati Charles RN Internal Medicine Daily Progress Note Patient: George Styles, 1970, [id number] Physician: Arelis Mera MD, PGY3, Pager #[phone], TM1 service Assessment/Plan: George Styles is a [...] Mera MD Mr. Styles was admitted to [address] [place] [address]. On admission to 0, from outside facility a dual RN initial assessment of skin condition was performed by Izzy Gutierrez RN and Leroy Singleton RN. Skin Assessment: Skin within defined limits:Yes Jose Score: 20 Wound Vision Maintenance Analyst images obtained: No LDA Added: No Based [...] station when available. documented in this encounter [facility] 01-23-2024 Nurse Note Home Oxygen Qualification [...] at 4L of oxygen is also required.) [facility] 01-23-2024 History of Present illness Narrative [...] mg Oral Daily Kelvin Pacheco MD, MBBS kinesiology professor Transplant nephrology Surgery Post-Op Check Note George [...] monitor Leonel Harris DO General Surgery Pager [phone] CM went to bedside to talk with patient. Patient states he has home oxygen through [employer]. He uses 2.5 LNC around the clock. Patient states his brother will bring a tank for discharge. Anticipate patient will discharge tomorrow AM. Brother updated. Girish Oro RN, BSN Clinical Contact Centre Supervisor Please note that I am a float case management coordinator and may not cover the same service every day. Please call the main Case Management office at [phone] for up-to-date coverage. Verified patients identity using [...] Daily Progress Note Patient: George Styles, 1970, [id number] Physician: Yury Ozuna MD, PGY1, Pager #[phone], TM1 service Assessment/Plan: George Styles is a [...] by transplant surgery on 01/22 (NPO at [place], updated type & screen) S/p Liver-Kidney Transplant [...] with the Nutrition plan outlined in the [facility]uler s note. DVT prophylaxis with lovenox Diet [...] in resident note. Kelvin Pacheco MD, MBBS kinesiology professor Transplant nephrology Patient seen and examined at [...] Oral BID AC Kelvin Pacheco MD, MBBS kinesiology professor Transplant nephrology Images from the original note were not included. Internal Medicine Daily Progress Note Patient: George Styles, 1970, [id number] Physician: Yury Ozuna MD, PGY1, Pager #[phone], YX7 service Assessment/Plan: George Styles is a 53 [...] with the Nutrition plan outlined in the [facility] s note. DVT prophylaxis with lovenox Diet [...] Refills: 0 Provider: Zuly Bruno NP Pharmacy: [place], [place] Other Comments: Patient reported his Last Home Dose of mycophenolate and tacrolimus was on 01/15/24 at 0700. Medications that need removed from Outside Medication Reconciliation list: Please remove all medications. Please feel free to contact me with any further questions. Name: Heidy Chatman Phone #: [phone] Date/Time: 01/19/2024 12:08 PM Time Spent: 15 minutes Associated attestation - Melania Alarcon RPH - 01/19/2024 12:41 PM EST Department of Pharmacy Admission Medication Reconciliation Note Patient: George Styles Room/Bed: 1082/A I have reviewed the home medication list with the Environmental Protection Economist. The home medication list status is: complete. All changes to the home medication list have been updated in [facility]. Updated MOLECULAR BIOLOGY DIRECTOR Med List: Prior to Admission Medications Prescriptions [...] with any further questions. Name: Melania Alarcon [facility] Phone #: [phone] Date/Time: 01/19/2024 12:41 PM Internal Medicine Daily Progress Note Patient: George Styles, 1970, [id number] Physician: Yury Ozuna MD, PGY1, Pager #[phone], YS3 service Assessment/Plan: Acute Hypoxic Respiratory Insufficiency GARCIA, [...] home amlodipine 5mg CAD: non-obstructive CAD on [facility] 2018. - continue home aspirin 81mg [...] with the Nutrition plan outlined in the [facility] s note. DVT prophylaxis with lovenox Diet [...] mg Oral Daily Kelvin Pacheco MD, MBBS kinesiology professor Transplant nephrology Internal Medicine Daily Progress Note Patient: George Styles, 1970, [id number] Physician: Yury Ozuna MD, PGY1, Pager #[phone], TM1 service Assessment/Plan: Updates: - continued diuresis [...] home amlodipine 5mg CAD: non-obstructive CAD on [facility] 2019. - continue home aspirin 81mg [...] with the Nutrition plan outlined in the [facility] s note. DVT prophylaxis with lovenox Diet [...] in resident note. Kelvin Pacheco MD, LU kinesiology professor Transplant nephrology Pt known to career and transition teacher from previous admissions. Provided emotional and spiritual support. Patient shared about: family support, medical course Production Floater provided: - Supportive presence - Active listening - Validation of feelings/emotions Patient encouraged to request a career and transition teacher as needed. Chaplains are available in-house 24 hours a day and 7 days a week. For urgent matters in [facility], please page [phone]. If the request is not urgent, please enter a consult. Consults are responded to within 24 hours. Senior Staff Production Floaterwilmer Singh Mdiv, [facility] [place] [phone] [email or web address] On-call : call center nurse Raheem: 22/06 Pager ,[facility], and [place] [phone] Raheem Pager [phone] 01/18/24 1342 Clinical Encounter Type Visited With Patient Visit Type Introduction Pastoral Time Spent 15 min Referral Other (See Comment) (rounding) Spiritual Assessment Emotional Observation Coping well;Anxiety Hope Observation Specific hope focus Support Observation By Family Interventions Provided Active listening;Supportive presence Facilitated Verbalization of feelings;Identifying support system;Identifying Sources of spiritual well-being Explored Expectations;Treatment decisions Breaker Layer Education Breaker Layer Service Available Yes Educated Patient Outcomes Patient [...] interaction. Name: Melania Alarcon RPH Phone #: [phone] Date/Time: 01/18/2024 9:56 AM Discharge Planning Patient [...] Yes Name and Contact information: Gian Styles ([phone]) Would you like to add additional adult [...] oxygen?: Yes Oxygen Provider and Contact : [place] Liter-Flow?: Order for oxygen use?: unknown at [...] patient on Anticoagulation? : No [id number] - [place] [address] - [address] [place] [phone] Completions Manager Does the patient or surgical device sales representative express financial concerns? : No Employed?: Disabled Coping/Stress Concerns about patient s coping and stress?: No Concerns about patient s caregiver s coping and stress?: No Values and Beliefs Cultural or adventist practices that may impact discharge planning and/or [...] Plan 1. Identified self and role as Contact Centre Supervisor. 2. Confirmed and updated demographics and treatment team. 3. Contact Centre Supervisor will continue to follow with medical team for any other additional discharge needs. Kasandra DON RN *Please note I am float CM and work Thursday and Thursday every other week. Please call [phone] for assist in my absence. Internal Medicine Daily Progress Note Patient: George Styles, 1970, [id number] Physician: Yury Ozuna MD, PGY1, Pager #[phone], TM1 service Assessment/Plan: Updates: - continue diuresis [...] home amlodipine 5mg CAD: non-obstructive CAD on [facility] 2018. - continue home aspirin 81mg [...] ordered 2D echo. Kevin Sage MD, FASN Healthcare Consultant of Clinical Medicine [facility] documented in this encounter [facility] 01-23-2024 Plan of care note Patient [...] Symptoms (Acute Pain): verbalization of pain descriptors [facility] 01-22-2024 Hospital Discharge instructions Arelis Mera [...] your doctor for further instructions. Please call [phone], Option 1 or [phone] to schedule your appointment with the Heart Failure Clinic. Arelis Mera MD - 01/22/2024 3:08 PM EST You can change your dressing 48 hours from the procedure The following attachments cannot be sent through Care Everywhere.Heart Failure: Avoiding Triggers (Vincentian)Heart Failure: Limiting Sodium (Vincentian)Pain and Pain Control ([facility]) (Vincentian)documented in this encounter [facility] 01-22-2024 Surgery Postoperative evaluation and management note George Feliz Jensen ([id number]) PRE OPERATIVE DIAGNOSIS High output congestive heart failure [I50.83] POST OPERATIVE DIAGNOSIS Post-Op Diagnosis Codes: * High output congestive heart failure [I50.83] PROCEDURE PERFORMED Procedure(s) (LRB): LIGATION ANGIOACCESS AVF (Left) Resection of large aneurysmic vein PRIMARY CLOSURE Yes INTRAOPERATIVE FINDINGS No significant abnormalities SURGEON Surgeons and Role: * Jyoti Bryant MD, PhD - Primary ANESTHESIOLOGIST Anesthesiologist: Celena Tiwari MD; Kehinde Gutierrez MD ABLE BODIED SEAMAN: Raheem Jasso APRN-ABLE BODIED SEAMAN Merchandising Lead Assisting: Mini Khan MD SURGICAL STAFF Childcare Worker: Zoila Alexander RN Relief Childcare Worker: Marimar Saravia RN Relief Scrub: Briseyda Self Scrub Person: Cinda Mai RN Resident Assisting: Leonel Harris DO Fellow: Miki Mcgowan MD, MBBS COMPLICATIONS None ESTIMATED BLOOD LOSS Minimal SPECIMENS No specimen sent * No specimens in log * Jyoti Bryant MD, PhD January 22, 2024 1:34 PM [facility] Work Phone: 01-22-2024 Nurse Note Arrived to PACU assisted by anesthesiology. Connected to monitors. Turned side to side, OR linens removed, repositioned. Airway patent, patient breathing easily. Report received from surgical services coordinator and report received from anesthesiology. Pt arrived awake. VSS. Sats slightly low. Pulm rehab used. Sats currently 3lpm @ 93%. Pt states he uses CPAP nocturnally. A&Ox4. Nerve block left arm, elevated. [facility] 01-22-2024 Surgery Postoperative evaluation and management [...] Axillary block. SURGEON(S): Jyoti Bryant MD, PHD EMPLOYMENT INSTRUCTIONAL ASSOCIATE: Mynor Fall MD ESTIMATED BLOOD LOSS: Minimal. [...] Jyoti Bryant MD, PHD ATTENDING AR/MedQ JOB: [id number] DOC: [id number] [facility] 01-22-2024 Plan of care note Patient [...] 1939 Plan Of Care Reviewed With: patient [facility] 01-20-2024 Consult note Associated Order (s): IP CONSULT TO SURGERY - TRANSPLANT (RENAL) Images from the original note were not included. TRANSPLANT SURGERY CONSULT NOTE: Consult: 01/20/2024, 4:03 PM Director Of Safety: Starla Morris MD Reason for Consult: Requesting Dr Carson Bryant for AVF revision/closure given new onset high output heart failure George Styles is a 53 y.o. male CURRENT HOSPITALIZATION LOS: Admit Date: 01/16/2024 [facility] Hospital LOS: 4 days George [...] GUIDANCE 05/17/2022 Surgeon: Enzo Heart DO; Location: [facility] INTERVENTIONAL RADIOLOGY (VIR) LIVER TRANSPLANT, ORTHOTOPIC N/A 04/12/2020 Laterality: N/A; Surgeon: LU Palma; Location: [facility] SAME DAY SURGERY MAIN OR KIDNEY TRANSPLANT W/O DEERING NEPHRECTOMY N/A 04/12/2020 Laterality: N/A; Surgeon: LU Palma; Location: [facility] SAME DAY SURGERY MAIN OR OTHER [...] Studies: Labs-CBC: WBC/Hgb/Hct/Plts: 3.79/12.5/38.9/166 (01/20 611) Labs-Chem 7([facility]): Bun/Creat/Cl/CO2/Glucose: 15/1.12/105/28/88 (01/20 611) Na/K+/Phos/Mg/Ca: [...] seen and staffed with Dr. Mcgowan fellow industrial education instructor Thank you, Starla Morris MD Associated attestation - Jyoti Bryant MD, PhD - 01/22/2024 10:54 AM EST IRomaine Bryant MD, PhD, have independently seen and examined the patient, reviewed the labs, discussed the patient with the fellow/resident and agree with the note. [facility] Work Phone: 01-20-2024 Consult note Associated Order (s): IP CONSULT TO SURGERY - TRANSPLANT (RENAL) Images from the original note were not included. TRANSPLANT SURGERY CONSULT NOTE: Consult: 01/20/2024, 4:03 PM Director Of Safety: Starla Morris MD Reason for Consult: Requesting Dr Carson Bryant for AVF revision/closure given new onset high output heart failure George Styles is a 53 y.o. male CURRENT HOSPITALIZATION LOS: Admit Date: 01/16/2024 [facility] Hospital LOS: 4 days George [...] DAY SURGERY MAIN OR KIDNEY TRANSPLANT W/O DEERING NEPHRECTOMY N/A 04/12/2020 Laterality: N/A; Surgeon: LU [...] Studies: Labs-CBC: WBC/Hgb/Hct/Plts: 3.79/12.5/38.9/166 (01/20 611) Labs-Chem 7([facility]): Bun/Creat/Cl/CO2/Glucose: 15/1.12/105/28/88 (01/20 611) Na/K+/Phos/Mg/Ca: [...] seen and staffed with Dr. Mcgowan fellow industrial education instructor Thank you, Starla Morris MD Associated attestation [...] 1.2, WBC 3.6, Hgb 12.1, Plts 155. ASRAI with Dr. Max on 01/16/2023. IS at [...] 04/12/2020 Laterality: N/A; Surgeon: LU Palma; Location: [facility] SAME DAY SURGERY MAIN OR KIDNEY TRANSPLANT W/O DEERING NEPHRECTOMY N/A 04/12/2020 Laterality: N/A; Surgeon: LU Palma; Location: [facility] SAME DAY SURGERY MAIN OR OTHER [...] (order for outpatient) Please SecureChat or Call ([phone]) for any questions. Await attending attestation for final recommendations. Hank Noel MD Division of Gastroenterology, Hepatology, and Nutrition Clinical Fellow, PGY-5 Pager: [phone] For urgent/stat calls or consults 5pm to 7am, please page the on-call GI fellow on Sirna[employer]. [facility]--> Internal Medicine--> Gastroenterology, Hepatology, & Nutrition--> 1st Call Janae Hatfield For urgent/stat calls or consults 7am to 5pm during the weekend, please page the on-call GI fellow on [employer]na[employer]. [facility]--> Internal Medicine--> Gastroenterology, Hepatology, & Nutrition--> All Hep & East Wknd Cons Fel Day For follow up questions regarding this patient 7am to 5pm during the weekday, contact the Hepatology consults fellow or CARLOS A on eWise. [facility]--> Internal Medicine--> Gastroenterology, Hepatology, & Nutrition--> All [...] Estrada MD, MSc documented in this encounter [facility] 01-19-2024 Nurse Note 01/19/24 0900 Vitals [...] rest, 95-96% when talking/moving. Paulette Cordon RN [facility] 01-19-2024 Nurse Note Paged overnight coverage, Jasper Gastelum MD, via pager #[phone] Pt- George Styles. Sarah 1082. TM1. Was wondering if he can have his Melatonin order increased to 6mg. Per pt, he usually takes 8mg at home. -SAMI Duffy #[phone] Tati Charles RN [facility] 01-18-2024 Consult note Associated Order (s): [...] GUIDANCE 05/17/2022 Surgeon: Enzo Heart DO; Location: [facility] INTERVENTIONAL RADIOLOGY (VIR) LIVER TRANSPLANT, ORTHOTOPIC N/A 04/12/2020 Laterality: N/A; Surgeon: LU Palma; Location: [facility] SAME DAY SURGERY MAIN OR KIDNEY TRANSPLANT W/O DEERING NEPHRECTOMY N/A 04/12/2020 Laterality: N/A; Surgeon: LU Palma; Location: [facility] SAME DAY SURGERY MAIN OR OTHER [...] (order for outpatient) Please SecureChat or Call ([phone]) for any questions. Await attending attestation for final recommendations. Hank Noel MD Division of Gastroenterology, Hepatology, and Nutrition Clinical Fellow, PGY-5 Pager: [phone] For urgent/stat calls or consults 5pm to 7am, please page the on-call GI fellow on [employer]Genda. [facility]--> Internal Medicine--> Gastroenterology, Hepatology, & Nutrition--> 1st Call Fel Alysia For urgent/stat calls or consults 7am to 5pm during the weekend, please page the on-call GI fellow on [employer]Genda. [facility]--> Internal Medicine--> Gastroenterology, Hepatology, & Nutrition--> All Hep & East Wknd Cons Fel Day For follow up questions regarding this patient 7am to 5pm during the weekday, contact the Hepatology consults fellow or CARLO SA on QGenda. [facility]--> Internal Medicine--> Gastroenterology, Hepatology, & Nutrition--> All [...] (order for outpatient) Michael Estrada MD, MSc [facility] Work Phone: 01-16-2024 Plan of care note Internal Medicine Daily Progress Note Patient: George Styles, 1970, [id number] Physician: Arelis Mera MD, PGY3, Pager #[phone], TM1 service Assessment/Plan: George Styles is a [...] home amlodipine 5mg CAD: non-obstructive CAD on [facility] 2018. - continue home aspirin 81mg [...] MD, on rounds. Signed, Arelis Mera MD [facility] 01-16-2024 Nurse Note Mr. Styles was admitted to [address] [place] [address]. On admission to [facility], from outside facility a dual RN initial assessment of skin condition was performed by Izzy Gutierrez RN and Leroy Singleton RN. Skin Assessment: Skin within defined limits:Yes Jose Score: 20 Wound Vision Maintenance Analyst images obtained: No LDA Added: No Based [...] room closest to nurses station when available. [facility] 01-16-2024 History and physical note Images from the original note were not included. 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 Strength [...] home amlodipine 5mg CAD: non-obstructive CAD on [facility] 2018. - continue home aspirin 81mg daily Gout: continue home allopurinol 200mg daily BPH: continue home flomax 0.4mg daily Complexity. Obesity Body mass index is 32.8 kg/m . - Follow with PCP for dietary and lifestyle modifications. Any conditions listed below are present on admission unless otherwise specified. . DVT prophylaxis with lovenox Disposition: admitted to [facility] Code status is Full Staffed with [...] Pierson, Luisa Steven, Renee Rivera, Daisha Max Numerical Tool Programmer: José Miguel Garnica All Txt: 04/13/2020 (Kidney), [...] results found for: CYCLOSPORIN , CYCLOSPORIN2 , [id number] , CYCLORAND No results found for: SIROLIMUS [...] request in chart. Kevin Sage MD Pager [phone] [facility] 01-16-2024 History and physical note Images from the original note were not included. Internal Medicine Admission History & Physical Patient: George Styles 1970, [id number] Physician: Timothy Joseph MD, PGY1, Pager #[phone], TM 1 service Date of face to [...] GUIDANCE 05/17/2022 Surgeon: Enzo Heart DO; Location: [facility] INTERVENTIONAL RADIOLOGY (VIR) LIVER TRANSPLANT, ORTHOTOPIC N/A 04/12/2020 Laterality: N/A; Surgeon: LU Palma; Location: [facility] SAME DAY SURGERY MAIN OR KIDNEY TRANSPLANT W/O DEERING NEPHRECTOMY N/A 04/12/2020 Laterality: N/A; Surgeon: LU Palma; Location: [facility] SAME DAY SURGERY MAIN OR OTHER [...] itraconazole Fax results to: Dr. 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 Strength [...] home amlodipine 5mg CAD: non-obstructive CAD on [facility] 2018. - continue home aspirin 81mg daily Gout: continue home allopurinol 200mg daily BPH: continue home flomax 0.4mg daily Complexity. Obesity Body mass index is 32.8 kg/m . - Follow with PCP for dietary and lifestyle modifications. Any conditions listed below are present on admission unless otherwise specified. . DVT prophylaxis with lovenox Disposition: admitted to [facility] Code status is Full Staffed with [...] Pierson, Luisa Steven, Renee Rivera, Daisha Max Numerical Tool Programmer: José Miguel Garnica All Txt: 04/13/2020 (Kidney), [...] results found for: CYCLOSPORIN , CYCLOSPORIN2 , [id number] , CYCLORAND No results found for: SIROLIMUS [...] request in chart. Kevin Sage MD Pager [phone] documented in this encounter [facility] 01-12-2024 History of Present illness Narrative [...] Name: Prograf 0.2 MG Contact Info: Specialty ([place]) [phone] [facility] [phone] [facility] [phone] Raheem [phone] Bedside Delivery ([facility]) [phone] [facility] RX OUTREACH ADVANCED: Call Information: Date and Time of Contact: 01/25/2024 10:23 AM Method of Contact: By Phone Contact Type: Prescriptions Contactor: [facility] Contactee: Patient Contact Outcome: Left message (prograf myco) Contact Info: Specialty ([place]) [phone] [facility] [phone] [facility] [phone] Raheem [phone] Bedside Delivery ([facility]) [phone] documented in this encounter [facility] 01-12-2024 History of Present illness Narrative [...] Name: Prograf 0.2 MG Contact Info: Specialty ([place]) [phone] [facility] [phone] [facility] [phone] Raheem [phone] Bedside Delivery ([facility]) [phone] [facility] RX OUTREACH ADVANCED: Call Information: Date and Time of Contact: 01/25/2024 10:23 AM Method of Contact: By Phone Contact Type: Prescriptions Contactor: [facility] Contactee: Patient Contact Outcome: Left message (prograf myco) Contact Info: Specialty ([place]) [phone] [facility] [phone] [facility] [phone] Raheem [phone] Bedside Delivery ([facility]) [phone] [facility] RX OUTREACH ADVANCED: Call Information: Date and Time of Contact: 01/27/2024 10:19 AM Method of Contact: By Phone Contact Type: Prescriptions Contactor: [facility] Contactee: Patient Contact Outcome: Left message (myco prograf) Contact Info: Specialty ([place]) [phone] [facility] [phone] [facility] [phone] Raheem [phone] Bedside Delivery ([facility]) [phone] documented in this encounter [facility] 01-12-2024 History of Present illness Narrative [...] Name: Prograf 0.2 MG Contact Info: Specialty ([place]) [phone] [facility] [phone] [facility] [phone] Raheem [phone] Bedside Delivery ([facility]) [phone] [facility] RX OUTREACH ADVANCED: Call Information: Date and Time of Contact: 01/25/2024 10:23 AM Method of Contact: By Phone Contact Type: Prescriptions Contactor: [facility] Contactee: Patient Contact Outcome: Left message (prograf myco) Contact Info: Specialty ([place]) [phone] [facility] [phone] [facility] [phone] Raheem [phone] Bedside Delivery ([facility]) [phone] [facility] RX OUTREACH ADVANCED: Call Information: Date and Time of Contact: 01/27/2024 10:19 AM Method of Contact: By Phone Contact Type: Prescriptions Contactor: [facility] Contactee: Patient Contact Outcome: Left message (myco prograf) Contact Info: Specialty ([place]) [phone] [facility] [phone] [facility] [phone] Raheem [phone] Bedside Delivery ([facility]) [phone] [facility] OUTREACH ADVANCED: Call Information: Date and Time of Contact: 02/01/2024 3:22 PM Contact Type: Prescriptions Contactor: [facility] Contactee: Patient Contact Outcome: Left message Shipping/Pickup: Medication Name: Mycophenolate 360mg and Prograf 0.2mg Pack Contact Info: Specialty ([place]) [phone] [facility] [phone] [facility] [phone] Ra[place]em [phone] Bedside Delivery ([facility]) [phone] documented in this encounter [facility] 01-06-2024 History of Present illness Narrative [...] The neurologist wanted to send him to [facility] neurology but it is out of network [...] 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) documented in this encounter [facility] 10-06-2023 History of Present illness Narrative [...] ; Prograf 0.2 MG Contact Info: Specialty ([place]) [phone] [facility] [phone] [facility] [phone] Raheem [phone] Bedside Delivery ([facility]) [phone] [facility] OUTREACH ADVANCED: Call Information: Date and Time of Contact: 10/23/2023 2:00 PM Method of Contact: By Phone Contact Type: Prescriptions Contactor: [facility] Contactee: Patient Contact Outcome: Left message and Call back later Shipping/Pickup: Medication Name: Mycophenolate 360mg and Prograf 0.2mg Contact Info: Specialty ([place]) [phone] [facility] [phone] [facility] [phone] [facility] [phone] Bedside Delivery ([facility]) [phone] documented in this encounter [facility] 09-11-2023 Miscellaneous Notes Pt discharged home [...] will knot picker cloth his oxygen from [employer] supply, 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 This RN [...] Patient seen ambulating in the velazquez with DIRECTOR MARKETING. Patient was mildly short of breath on [...] & HR 114. Messaged Mainor Loomis, via [employer] secure chat, Temp 100.8. His tylenol order [...] short period of time. 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 Episode of [...] Critical Care Medicine Message Mainor Loomis, via [employer] secure chat, Good evening, just an FYI, [...] short period of time. 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 This morning, [...] [address] Loera here also (lsw) Dr. Diaz aware of pt's increased oxygen [...] Medicine-Pediatrics, PGY-2 Mr. Styles was admitted to [address] [place] [address]. On admission to R[facility], from home a dual RN initial assessment of skin condition was performed by Ercia Houston RN and Wilma Hay RN. Skin [...] when available. documented in this encounter [facility] 09-11-2023 History of Present illness Narrative Provided follow-up emotional and spiritual support. Patient shared about rosemary of discharge and looking forward to seeing family Production Floater provided: - Supportive presence - Active listening - Validation of feelings/emotions Patient encouraged to request a career and transition teacher as needed. Chaplains are available in-house 24 hours a day and 7 days a week. For urgent matters in [facility], please page [phone]. If the request is not urgent, please enter a consult. Consults are responded to within 24 hours. Senior Staff Production Floater Angie Singh Mdiv, [facility] [place] [phone] [email or web address] 22/06 On-call [place]: [phone] 22/06 Pager [facility], and Brock Hernandez Pager [phone] 09/11/23 1430 Clinical Encounter Type Visited With Patient Visit Type Follow-up Pastoral Time Spent 15 min Referral Other (See Comment) (rounding) Spiritual Assessment Spiritual Observation Spirituality helpful Emotional Observation Coping well Hope Observation Specific hope focus Support Observation By Family Interventions Provided Active listening;Supportive presence Facilitated Verbalization of feelings Explored Expectations Breaker Layer Education Breaker Layer Service Available Yes Educated Patient Plan of Care Continue Visiting PRN Images from the original note were not included. [facility] ([facility] Note: Non-Verbal Med Rec [facility] received the following discharge prescription(s): Total cost is $0. I have reviewed the Discharge Rx Reconciliation Report. The discharge prescription(s) will be delivered to the patient on 09/11/2023. 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 His [place] kidney disease was noted to be presumed [...] losartan 50mg BID CAD: non-obstructive CAD on [facility] 2018. - continue home aspirin 81mg [...] 5.05 (H) 11/19/2018 Kevin Sage MD, SERA Healthcare Consultant of Clinical Medicine [facility] Images from the original note were not included. Final Discharge Planning and Transportation Final Discharge Planning Discharge Disposition: Home Services at Discharge: Outpatient clinical services (ie: lab draws, transfusions, injectables) ([facility]) Selected Continued Care - Admitted Since 08/28/2023 Durable Medical Equipment Coordination complete. Service Provider Selected Services Address Phone Fax Patient Preferred [facility] D[facility] Medical Equipment [address] [facility] [id number] Internal Comment last updated by Lora Alexander RN 09/10/[phone] Correct contact information: [employer] [address] [place] [address] [place] [address] dining car hop- you do not need to call at discharge, I already notified the company. Addendum 1521 [facility] notified this CM they are out of patient's insurance area and will not be able to service this patient at time of discharge. Provider notified. Addendum 1496 Dr Kelly called [facility] spoke to Lynn and she said they are willing to accept patient if the patient would drive to the [place] office and knot picker cloth the supplies. [...] Lora Colón RN, MSN, CCM, CMCN Clinical Contact Centre Supervisor- [facility] Transplant #[phone] Department of Pharmacy Transplant Note Patient: George [...] dose adjustment Name: Matt Kramer RPh,PharmD Phone: [phone] Date/Time: 09/10/2023 11:33 AM This CM sent referral via [employer] for O2 concentrator to 4 agencies Start date today Timer set for [facility] [employer] Addendum 1332 One accepting company reserved in [facility] [address] [place] [phone] Lora Colón RN, MSN, CCM, [facility] Clinical Contact Centre Supervisor- [facility] Transplant #[phone] NUTRITION FOLLOW-UP Nutrition Plan of Care: 1. Continue current diet order. 2. No oral supplements warranted at this time. 3. Monitor for significant weight changes. Monitor GI, skin integrity. 4. Monitor and encourage po intakes with goal of average po being 75-100%. 5. solid waste landfill technician to follow. ___ Met with patient [...] time. Will continue to monitor. RHIANNON [place]R Pager:[phone] Transplant Infectious Disease (Team 3) Progress Note [...] sign off. Please Epic message or page [phone] with questions. 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 His [place] kidney disease was noted to be presumed [...] losartan 50mg BID CAD: non-obstructive CAD on [facility] 2018. - continue home aspirin 81mg [...] to follow. Please Epic message or page [phone] with questions. 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 His [place] kidney disease was noted to be presumed [...] losartan 50mg BID CAD: non-obstructive CAD on [facility] 2019. - continue home aspirin 81mg daily, holding atorvastatin 20mg daily Gout: continue home allopurinol 200mg daily BPH: continue home flomax 0.4mg daily DVT PPX: SQH Code Status: Full Code Disposition: Pending clinical course. Anticipate eventual discharge home. Discussed with team and attending, Kevin Sage MD, on rounds. 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 His [place] kidney disease was noted to be presumed [...] losartan 50mg BID CAD: non-obstructive CAD on [facility] 2018. - continue home aspirin 81mg [...] 5.05 (H) 11/19/2018 Kevin Sage MD, SERA Healthcare Consultant of Clinical Medicine [facility] Transplant Infectious Disease [...] to follow. Please Epic message or page [phone] with questions. Ann Marie Haskins MD PGY-4, [...] he continues to improve. Please message via [employer] secure chat or page with any questions or concerns. Evan White DO Healthcare Consultant Division of Infectious Disease Transplant Infectious [...] Epic message or page [phone] with questions. Evan White DO Transplant Infectious Diseases Images from the original note were not included. Pulmonary/Critical Care Medicine Daily Progress Note Reason for Consultation: bronch for infectious workup Requesting Physician: Dr. Sage CURRENT HOSPITALIZATION: Admit Date: 08/28/2023 [facility] Hospital LOS: 9 days Impression [...] and interpreted reviewed the radiographic data in [employer]PANOSOL. 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 His [place] kidney disease was noted to be presumed [...] losartan 50mg BID CAD: non-obstructive CAD on [facility] 2018. - continue home aspirin 81mg [...] 5.05 (H) 11/19/2018 Kevin Sage MD, FASN Healthcare Consultant of Clinical Medicine [facility] Images from the original note were not included. Pulmonary/Critical Care Medicine Daily Progress Note Reason for Consultation: bronch for infectious workup Requesting Physician: Dr. Sage CURRENT HOSPITALIZATION: Admit Date: 08/28/2023 [facility] Hospital LOS: 8 days Impression [...] and interpreted reviewed the radiographic data in [facility]/[employer]/PANOSOL. Acute Occupational Therapy Evaluation Prior to Admission [...] Assessment: Transfer Assessment: Sit to Stand Transfer [employer] Level: Sit->Stand: independent Skilled Intervention/Details: Sit->Stand: x1 from EOB, x1 from toilet Stand to Sit Transfer [employer] Level: Stand->Sit: independent Skilled Intervention/Details: Stand->Sit: x1 to toilet, x1 to EOB Functional Mobility: Functional Mobility [employer] Level: Functional Mobility/Gait: independent Ambulation Distance (Feet): 20 Skilled Intervention/Details - Functional Mobility/Gait: pt performed functional mobility to/from RR w/ no overt LOB Outcome Score(s): CURRENT [facility] Daily Activity Inpatient Short Form Putting on/Taking Off Lower Body Clothin - A Little Assistance Bathin - A Little Assistance Toiletin - A Little Assistance Putting on/Taking Off Upper Body Clothin - No Assistance Groomin - No Assistance Eatin - No Assistance CURRENT [facility] Activity Raw Score: 21 CURRENT [facility] Activity Functional Limitation/Modifier: 32.79% Currently Impaired [...] Prior to Admission [facility] score(s): PRIOR LEVEL AM-PAC Mobility Raw Score: [...] Intact Mobility Assessment: Supine to Sit Mobility [employer] Level: Supine->Sit: modified independence Bed Features/Set-up: Supine->Sit: Head of bed elevated Sit to Supine Mobility [employer] Level: Sit->Supine: not tested Balance: Sitting Balance [...] environment. Transfer Assessment: Sit to Stand Transfer [employer] Level: Sit->Stand: independent Skilled Intervention/Details: Sit->Stand: From EOB x 2 without difficulty. Stand to Sit Transfer [employer] Level: Stand->Sit: independent Assistive Device: Stand->Sit: armed chair Skilled Rationale: Verbal cues, Positioning Gait/Functional Mobility: Gait Assessment [employer] Level: Gait: stand-by assist Assistive Device: Gait: rollator Ambulation Distance (Feet): 400 Gait Deviations Identified: decreased grace, decreased gait speed Gait Skilled Rationale: verbal, upright posture, increase step length, increase foot clearance Skilled Intervention/Details - Gait: Reasonable foot clearnce without loss of balance but endorsing dyspnea as 6-7/10. 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 His [place] kidney disease was noted to be presumed [...] losartan 50mg BID CAD: non-obstructive CAD on [facility] 2018. - continue home aspirin 81mg [...] 5.05 (H) 11/19/2018 Kevin Sage MD, SERA Healthcare Consultant of Clinical Medicine [facility] Transplant Infectious Disease [...] to follow. Please Epic message or page [phone] with questions. Evan White DO Transplant Infectious Diseases Images from the original note were not included. 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 His [place] kidney disease was noted to be presumed [...] losartan 50mg BID CAD: non-obstructive CAD on [facility] 2018. - continue home aspirin 81mg [...] P 450 system Kevin Sage MD, MADISONN Healthcare Consultant of Clinical Medicine [facility] ERT Note: ERT called [...] MD, PhD Internal Medicine and Pediatrics PGY-3 [facility] Brief plan [...] MD, PhD Internal Medicine and Pediatrics PGY-3 [facility] Transplant Infectious [...] to follow. Please Epic message or page [phone] with questions. 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 His [place] kidney disease was noted to be presumed [...] /2 renal function CAD: non-obstructive CAD on [facility] 2018. 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 His [place] kidney disease was noted to be presumed [...] 2/2 renal function CAD: non-obstructive CAD on [facility] 2018. - continue home aspirin 81mg [...] 5.05 (H) 11/19/2018 Kevin Sage MD, MADISONN Healthcare Consultant of Clinical Medicine [facility] Progression of Care [...] Lora Colón RN, MSN, CCM, CMCN Clinical Contact Centre Supervisor- [facility] Transplant #[phone] Made introductory visit with patient. Provided emotional and spiritual support. Patient shared about: - Source of Rosemary: Camping/Fishing/Family - Spirituality/Adventist Affiliation: raised Adventist - Family Support/history - Experience with illness/hospital course - Hopes for healing/future Production Floater provided: - Supportive presence - Active listening - Validation of feelings/emotions - Pledged prayer Patient encouraged to request a career and transition teacher as needed. Chaplains are available in-house 24 hours a day and 7 days a week. For urgent matters in [facility], please page [phone]. If the request is not urgent, please enter a consult. Consults are responded to within 24 hours. Senior Staff Production Floater Angie Singh Mdiv, [facility] [place] [phone] [email or web address] 22/06 On-call [place]: [phone] 22/06 Pager ,KIKE, and Brock Hernandez Pager [phone] 09/02/23 1114 Clinical Encounter Type Visited With Patient Visit Type Introduction Pastoral Time Spent 15 min Referral Other (See Comment) (rounding) Spiritual Assessment Spiritual Observation Spirituality helpful Emotional Observation Coping well Hope Observation Specific hope focus Support Observation By Family Interventions Provided Active listening;Supportive presence Facilitated Verbalization of feelings Explored Expectations Breaker Layer Education Breaker Layer Service Available Yes Educated Patient Outcomes Patient Outcomes Reduced distress Plan of Care Continue Visiting PRN NUTRITION RISK SCREENING NOTE Nutrition Plan of Care: 1. Continue current diet order. 2. No oral supplements warranted at this time. 3. Monitor for significant weight changes. Monitor GI and skin integrity. 4. Monitor and encourage po intakes with goal of average po being 100%. 5. solid waste landfill technician to follow. George Styles is a 53 y.o. 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 His [place] kidney disease was noted to be presumed hepatorenal syndrome. His post-transplant course was noteworthy for nephrostomy tube (05/17/2022-09/10/2022) due to concern for ureteral stone. He presents as a direct admission for fever, cough, for infectious workup. Pt unavailable and information obtained via chart review Upper Doubler Screening Pt's appetite is good. Pt with [...] with meds Food Allergies reviewed:Shellfish Cultural or Adventist Restrictions/Preferences: None GI: Last Bowel Movement: 09/01/23 [...] time. Will continue to monitor. 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 His [place] kidney disease was noted to be presumed [...] 2/2 renal function CAD: non-obstructive CAD on [facility] 2018. - continue home aspirin 81mg [...] Provider: Zuly Bruno NP [facility] [place] Other Comments: Patient reported his Last Home Dose of mycophenolate & tacrolimus was on 08/28/23 at 0900. Patient reported he was taking Bactrim and benzonatate for fevers and a cough he was having. Please feel free to contact me with any further questions. Name: Heidy Chatman Phone #: [phone] Date/Time: 09/01/2023 2:01 PM Time Spent: 15 minutes Associated attestation - Matt Kramer RPh,PharmD - 09/01/2023 2:28 PM EDT Department of Pharmacy Admission Medication Reconciliation Note Patient: George Styles Room/Bed: 1062/A I have reviewed the home medication list with the Environmental Protection Economist. All changes to the home medication list have been updated in IHIS. Updated MOLECULAR BIOLOGY DIRECTOR Med List: Prior to Admission Medications Prescriptions [...] questions. Name: Matt Kramer RPh,PharmD Phone #: [phone] Date/Time: 09/01/2023 2:28 PM Transplant Infectious Disease [...] crypto antigen, EBV PCR -follow pending histo, [id number] labs These recommendations were discussed with the primary team. Transplant ID (Team 3) will continue to follow. Please Epic message or page [phone] with questions. 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 His [place] kidney disease was noted to be presumed [...] 2/2 renal function CAD: non-obstructive CAD on [facility] 2018. - continue home aspirin 81mg [...] 5.05 (H) 11/19/2018 Kevin Sage MD, SERA Healthcare Consultant of Clinical Medicine [employer] Comprehensive Transplant [...] Yes Name and Contact information: Gian Styles ([phone]) Reviewed and Updated in Demographics? : Yes [...] patient on Anticoagulation? : No [id number] [place] [address] - [address] [facility] [address] [facility] [address] Completions Manager Does the patient or surgical device sales representative express financial concerns? : No Employed?: Disabled Coping/Stress Concerns about patient s coping and stress?: No Concerns about patient s caregiver s coping and stress?: No Values and Beliefs Cultural or adventist practices that may impact discharge planning and/or [...] Plan 1. Identified self and role as Contact Centre Supervisor. 2. Confirmed and updated demographics and treatment team. 3. Contact Centre Supervisor will continue to follow with medical team/pt for any other additional discharge needs. Kasandra DON RN [facility] [phone] *Please note I am float and work Thursday and Thursday every other week. Please call [phone] for assist in my absence. 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 His [place] kidney disease was noted to be presumed [...] 2/2 renal function CAD: non-obstructive CAD on [facility] 2018. 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 His [place] kidney disease was noted to be presumed [...] losartan 50mg BID CAD: non-obstructive CAD on [facility] 2018. - continue home aspirin 81mg daily, atorvastatin 20mg daily Gout: continue home allopurinol 200mg daily BPH: continue home flomax 0.4mg daily DVT PPX: SQH Code Status: Full Code Disposition: Pending clinical course. Anticipate eventual discharge home. Discussed with team and attending, Kevin Sage MD, on rounds. Signed, Laurel Serrano MD, PhD documented in this encounter [facility] 09-10-2023 Hospital Discharge instructions Laurel Serrano MD, [...] healthy foods. documented in this encounter [facility] 09-01-2023 Consult note Associated Order (s): IP CONSULT TO PULMONOLOGY Pulmonary Medicine Inpatient Consultation Reason for Consultation: bronch for infectious workup Requesting Physician: Dr. Sage Pulmonary Attending Physician: Dr. Diaz CURRENT HOSPITALIZATION: Admit Date: 08/28/2023 [facility] Hospital LOS: 4 days Impression/Recommendations: [...] short period of time. 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 Other histories as documented in the [...] INFORMATION PATIENT: George Styles REFERRING PROVIDER: LU Oavlle ADMIT DATE: 08/28/2023 TODAY'S DATE: 08/29/2023 CHIEF [...] had any ill contacts. He traveled to [place] to family reunion in May. REVIEW OF [...] GUIDANCE 05/17/2022 Surgeon: Enzo Heart DO; Location: [facility] INTERVENTIONAL RADIOLOGY (VIR) LIVER TRANSPLANT, ORTHOTOPIC N/A 04/12/2020 Laterality: N/A; Surgeon: LU Palma; Location: [facility] SAME DAY SURGERY MAIN OR KIDNEY TRANSPLANT W/O DEERING NEPHRECTOMY N/A 04/12/2020 Laterality: N/A; Surgeon: LU Palma; Location: [facility] SAME DAY SURGERY MAIN OR OTHER [...] Alamo MD I can be reached via [employer] secure message (preferred) or Pager #[phone] documented in this encounter [facility] 08-28-2023 History and physical note Images from the original note were not included. Internal Medicine Admission History & Physical Patient: George Styles, 1970, [id number] Physician: Aric Turner MD, PGY1, Pager #[phone], IZ service Date of face to face patient [...] So he went to see the transplant cab driver. He was found elevated Cr and asked [...] Appetite is ok now. Urine is about 5280-8539 ml every day. 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 His [place] kidney disease was noted to be presumed [...] Urinary histoplasmosis - PJP, candid PCR - Director Of Safety transplant ID Acute Kidney Injury with Kidney [...] losartan 50mg BID CAD: non-obstructive CAD on [facility] 2018. - continue aspirin 81mg daily, [...] Melania Pierson, Luisa Steven, Renee Daisha Leone Numerical Tool Programmer: José Miguel Garnica All Txt: 04/13/2020 (Kidney), [...] results found for: CYCLOSPORIN , CYCLOSPORIN2 , [id number] , CYCLORAND No results found for: SIROLIMUS [...] Rest as above. Kevin Sage MD Pager [phone] documented in this encounter [facility] 08-28-2023 History of Present illness Narrative Images from the original note were not included. 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 Numerical Tool Programmer: Anayeli Burt Date of Liver Transplant: 04/13/2020 (Kidney), 04/13/2020 (Liver) 3 years 4 months post Liver/Kidney Transplant Primary Disease: Hypertensive Nephrosclerosis Transplant Disk Sharpener: Erma Roe/ Daisha Max Primary Care physician: [...] and faMOTIdine === None Specified Preferred Lab: [facility] Change in lab frequency / new [...] every 12 hours. ADDITIONAL INFORMATION: None Specified, [id number] [place] [address] - [address] 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 His [place] kidney disease was noted to be presumed [...] GUIDANCE 05/17/2022 Surgeon: Enzo Heart DO; Location: [facility] INTERVENTIONAL RADIOLOGY (VIR) LIVER TRANSPLANT, ORTHOTOPIC N/A 04/12/2020 Laterality: N/A; Surgeon: LU Palma; Location: [facility] SAME DAY SURGERY MAIN OR KIDNEY TRANSPLANT W/O DEERING NEPHRECTOMY N/A 04/12/2020 Laterality: N/A; Surgeon: LU Palma; Location: [facility] SAME DAY SURGERY MAIN OR OTHER [...] you have any questions. Steve Latham MD maintenance planning clerk Division of Nephrology [facility] documented in this encounter [facility] 08-28-2023 Instructions Mainor Busby RN - 08/28/2023 2:15 PM EDT - Admission for fevers, cough, and night sweats documented in this encounter [facility] 08-19-2023 History of Present illness Narrative [facility] OUTREACH ADVANCED: Call Information: Date and Time of Contact: 08/19/2023 2:52 PM Method of Contact: By Phone Contact Type: Prescriptions Contactor: [facility] Contactee: Patient Shipping/Pickup: Medicare B Refill?: No Medication Name: Tacro 0.5mg Delivery Method: Air Delivery Location: Home Signature Required: No Mailing/Pickup Date: 08/25/2023 Shipping Address: [address] [place] [address] Contact Info: Specialty ([place]) [phone] [facility] [phone] [facility] [phone] [facility] [phone] Bedside Delivery ([facility]) [phone] documented in this encounter [facility] 06-12-2023 History of Present illness Narrative Images from the original note were not included. George Styles is a 53 y.o. 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 No longer follows with a local cab driver. History of Present Illness: Since George was [...] and lab results. Rebeca Olsen MSN, RN, SEALER OPERATOR-BC, CCTN Certified Nurse Practitioner Comprehensive Transplant Center [facility] [address] [facility] [address] documented in this encounter [facility] 06-12-2023 Instructions JEANNA Hess - 06/12/2023 3:00 PM EDT No change in immunosuppression. documented in this encounter [facility] 06-10-2023 History of Present illness Narrative [facility]: Call Information: Method of Contact: By Phone Contact Type: Prescriptions Contactor: [facility] Contactee: Patient Contact Outcome: Left message Shipping/Pickup: Medication Name: Mycophenolate sod 180 mg Contact Info: Specialty ([place]) [phone] Jakob [phone] [facility] [phone] Ra[place]em [phone] Bedside Delivery ([facility]) [phone] [facility]RE[facility] ADVANCED: Call Information: Date and Time of Contact: 06/12/2023 9:43 AM Method of Contact: By Phone Contact Type: Prescriptions Contactor: [facility] Contactee: Patient Contact Outcome: Left message and Follow-up Shipping/Pickup: Medicare B Refill?: No Medication Name: Myco 180 Contact Info: Specialty ([place]) [phone] Jak[place] [phone] [facility] [phone] [place] [phone] Bedside Delivery ([facility]) [phone] [facility] OUTREACH ADVANCED: Call Information: Date and Time of Contact: 06/12/2023 10:08 AM Method of Contact: By Phone Contact Type: Prescriptions Contactor: [facility] Contactee: Patient Shipping/Pickup: Medicare B Refill?: No Medication Name: Mycophenolate 180mg DR Delivery Method: Air Delivery Location: Home Signature Required: No Mailing/Pickup Date: 06/17/2023 Shipping Address: [address] [place] [address] Contact Info: Specialty ([place]) [phone] Jak[place] [phone] [facility] [phone] [place] [phone] Bedside Delivery ([facility]) [phone] documented in this encounter [facility] 04-13-2023 Note [facility] Subjective George Styles is a [...] Encounter on (more content not included)... [facility] 03-12-2023 History of Present illness Narrative [facility] OUTREACH ADVANCED: Call Information: Date and Time of Contact: 03/12/2023 10:34 AM Method of Contact: By Phone Contact Type: Prescriptions Contactor: [facility] Contactee: Patient Shipping/Pickup: Medicare B Refill?: No Medication Name: Mycophenoloate sod 360 mg prednisone 5mg Delivery Method: Air Delivery Location: Home Signature Required: No Mailing/Pickup Date: 03/16/2023 Shipping Address: [address] [place] [address] Contact Info: Specialty ([place]) [phone] [facility] [phone] [facility] [phone] [place] [phone] Bedside Delivery ([facility]) [phone] [facility] OUTREACH ADVANCED: Call Information: [...] Required: No Mailing/Pickup Date: 03/19/2023 Shipping Address: [address] [place] [address] [address] Contact Info: Specialty ([place]) [phone] [facility] [phone] [facility] [phone] [facility] [phone] Bedside Delivery ([facility]) [phone] documented in this encounter [facility] 03-10-2023 History of Present illness Narrative [facility] OUTREACH ADVANCED: Call Information: Date and Time of Contact: 03/10/2023 12:00 PM Method of Contact: By Phone Contact Type: Prescriptions Contactor: [facility] Contactee: Patient Contact Outcome: Left message and Call back later Shipping/Pickup: Medication Name: Mycophenolate ; Tacrolimus Contact Info: Specialty ([place]) [phone] [facility] [phone] [facility] [phone] [place] [phone] Bedside Delivery ([facility]) [phone] documented in this encounter [facility] 03-10-2023 History of Present illness Narrative [facility] OUTREACH ADVANCED: Call Information: Date and Time of Contact: 03/10/2023 12:00 PM Method of Contact: By Phone Contact Type: Prescriptions Contactor: [facility] Contactee: Patient Contact Outcome: Left message and Call back later Shipping/Pickup: Medication Name: Mycophenolate ; Tacrolimus Contact Info: Specialty ([place]) [phone] [facility] [phone] [facility] [phone] [place]em [phone] Bedside Delivery ([facility]) [phone] [facility] OUTREACH ADVANCED: Call Information: Date and Time of Contact: 03/12/2023 10:32 AM Method of Contact: By Phone Contact Type: Prescriptions Contactor: [facility] Contactee: Patient Contact Outcome: Left message Shipping/Pickup: Medication Name: Mycophenolate sodium (MYFORTIC) 180 MG Tab tacrolimus 0.5 mg Contact Info: Specialty ([place]) [phone] Jakob [phone] [facility] [phone] Ra[place]em [phone] Bedside Delivery ([facility]) [phone] documented in this encounter [facility] 01-16-2023 History of Present illness Narrative -Referring Provider for today's consult: Daisha Max DO -Primary Care Provider: Zuly Bruno History of Present Illness George Styles is a 52 y.o. male who presents to the [facility] Trans[facility] Hepatology Clinic today for follow-up [...] GUIDANCE 05/17/2022 Surgeon: Enzo Heart DO; Location: [facility] INTERVENTIONAL RADIOLOGY (VIR) LIVER TRANSPLANT, ORTHOTOPIC N/A 04/12/2020 Laterality: N/A; Surgeon: LU Palma; Location: [facility] SAME DAY SURGERY MAIN OR KIDNEY TRANSPLANT W/O DEERING NEPHRECTOMY N/A 04/12/2020 Laterality: N/A; Surgeon: LU Palma; Location: [facility] SAME DAY SURGERY MAIN OR OTHER [...] 0.3 12/29/2022 Explant Pathology Pathologic Diagnosis A. [place] liver, orthotopic liver transplant resection (1458 gram): [...] A/P with IV contrast (06/27/2022): 1. Both [place] kidneys are atrophic with improvement in right-sided [...] frequent nighttime urination, etc). Daisha Max DO Healthcare Consultant Gastroenterology, Hepatology and Nutrition [facility] Pager: [phone] Images from the original note were not included. 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 Numerical Tool Programmer: Anayeli Burt Date of Liver Transplant: 04/13/2020 (Kidney), 04/13/2020 (Liver) 2 years, 8 months post Liver/Kidney Transplant Primary Disease: Hypertensive Nephrosclerosis Transplant Disk Sharpener: Steve Latham Primary Care physician: Zuly Bruno [...] levels: No results found for: CYCLOSPORIN, CYCLOSPORIN2, [id number], CYCLORAND No components found for: CYCLOSPORINE, 2HR [...] hours. ADDITIONAL INFORMATION: None Specified [id number] [place] [address] - [address] [facility] [address] [facility] [address] [facility] [address] [facility] [place] [address] [id number] [place] [address] [address] [facility] [address] [facility] [address] [facility] [address], [address] [facility] [address] ROS and SCREEN: Chest Pain: negative Cough: [...] ADDRESS WITH PHYSICIAN: documented in this encounter [facility] 01-16-2023 Instructions José Miguel Garnica RN - 01/16/2023 9:40 AM EST - Labs Every 2 months - Discuss night time urination with your PCP - Schedule Colonoscopy through PCP - Follow up in 1 year documented in this encounter [facility] 09-10-2022 History of Present illness Narrative UROLOGY CLINIC NOTE Reason for Appointment: BPH with LUTS HPI: Patient is a 52 yo male with a DDRT to the [facility] in 2019. Nephrostomy tube placed 05/17/22 [...] and no hydronephrosis. Some reflux up the [place] right ureter but good drainage of both transplant and [place] ureter to the bladder. Nephrostomy tube was [...] transplant, orthotopic (N/A, 04/12/2020); kidney transplant w/o [place] nephrectomy (N/A, 04/12/2020); and placement nephrostomy catheter [...] Negative for , diarrhea, constipation Genitourinary: See [place] Neurological: Negative for headaches. Lymph/Heme: Negative for [...] x 4, Normal strength. No edema. Skin: [place], warm, and dry. There are no rashes [...] and no hydronephrosis. Some reflux up the [place] right ureter but good drainage of both transplant and [place] ureter to the bladder. Nephrostomy tube was [...] MD 09/10/22 documented in this encounter [facility] 07-07-2022 History of Present illness Narrative Patient [...] assisted off the table and escorted to medical receptionist assistant where they made a follow up. Associated [...] to have transplant ureter with anastomosis to [place] right ureter. Nephrostogram without filling defects and no hydronephrosis. Some reflux up the [place] right ureter but good drainage of both transplant and [place] ureter to the bladder. Nephrostomy tube was removed without issue. Patient does have some sensation of incomplete bladder emptying and occasional sensation in his right flank. PVR today was 33cc. Will re-evaluate urinary symptoms at next appointment. --continue Flomax --RTC in one month flow flow/PVR/IPSS Patient to call with any additional questions or concerns. Ryan Yepez MD 07/07/22 documented in this encounter [facility] 06-27-2022 History of Present illness Narrative UROLOGY [...] transplant, orthotopic (N/A, 04/12/2020); kidney transplant w/o [place] nephrectomy (N/A, 04/12/2020); and placement nephrostomy catheter [...] Negative for , diarrhea, constipation Genitourinary: See [place] Neurological: Negative for headaches. Lymph/Heme: Negative for [...] x 4, Normal strength. No edema. Skin: [place], warm, and dry. There are no rashes [...] yo male with a DDRT to the [facility] in 2019. Nephrostomy tube placed 05/17 [...] bag if needed. documented in this encounter [facility] 06-27-2022 History and physical note Patient was evaluated in clinic as a nurse visit. Please refer to eRna Brewster's note. [facility] Work Phone: 06-27-2022 History and physical note Patient was evaluated in clinic as a nurse visit. Please refer to Rena Brewster's note. documented in this encounter [facility] 06-27-2022 History of Present illness Narrative TEACHING REGARDING TX NEPH COMPLETED-NEPH TUBE SITE DRY AND INTACT-CLEAR YELLOW URINE IN THE BAG-INSTRUCTED ABOUT FLUSHING, BAG CHANGING ETC. NUMEROUS QUESTIONS ASKED AND ANSWERED-VERBALIZED UNDERSTANDING documented in this encounter [facility] 06-18-2022 Note EXAMINATION: CT ABD/ PELVIS [...] mass or enlargement. KIDNEYS: Marked atrophy of [place] kidneys. Transplant right pelvic kidney with percutaneous [...] by: MÓNICA JIMENEZ Date: 2022-06-18 13:[address] [facility] 06-12-2022 Instructions Anayeli Christianson RN - 06/12/2022 3:21 PM EDT Do not take apart/disrupt nephrostomy tube system. Call Interventional Radiology and/or on-call transplant nurse [phone] for instruction if need to flush (clot or decreased flow). Take cipro 500mg, one tablet, twice per day for 14 days documented in this encounter [facility] 06-12-2022 History of Present illness Narrative Images from the original note were not included. 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 Numerical Tool Programmer: Anayeli Burt Date of Liver Transplant: 04/13/2020 (Kidney), 04/13/2020 (Liver) 2 year, 1 months post Liver/Kidney Transplant Primary Disease: Hypertensive Nephrosclerosis Transplant Disk Sharpener: Steve Latham Primary Care physician: Zuly Bruno [...] kidney stone in renal graft at [facility]. Percutaneous Neph Tube placed Images from the original note were not included. Nursing Assessment In Clinic (see Clinic Prep Sheet for additional information) Patient is accompanied to clinic today by: self Did patient require a wheelchair or medical transport for appointment: no Did front office director confirm current address and insurance information is [...] PREFERRED LAB AND PHARMACY: None Specified [facility] [address] [address] - [address] [address] [facility] [address] [facility] [address] [id number] [place] [address] [address] [facility] [address] [facility] [address] [facility] [address], [address] [facility] [address] ROS and SCREEN: Chest Pain: negative Cough: [...] 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 His [place] kidney disease was noted to be presumed [...] 04/12/2020 Laterality: N/A; Surgeon: LU Palma; Location: [facility] SAME DAY SURGERY MAIN OR KIDNEY TRANSPLANT W/O DEERING NEPHRECTOMY N/A 04/12/2020 Laterality: N/A; Surgeon: LU Palma; Location: [facility] SAME DAY SURGERY MAIN OR OTHER [...] you have any questions. Steve Latham MD maintenance planning clerk Division of Nephrology [facility] documented in this encounter [facility] 06-04-2022 Instructions TATI GROVE - 06/04/2022 11:04 AM EDT Thank you for joining us for your neph tube follow up. We recommend routine exchange every 8-10 weeks. Please reach out at [phone] when it is time to set your next routine exchange. Thank you IR clinic documented in this encounter [facility] 06-04-2022 History of Present illness Narrative [...] exchange. Verbalized understanding. documented in this encounter [facility] 05-20-2022 Note Formatting of this n [...] time of his discharge. Leon Cook RN [facility] 05-20-2022 Miscellaneous Notes Patient discharged. AVS [...] provide teaching before his discharge Leon RN #[id number] Leon Cook RN Afternoon assessment completed at [...] Interdisciplinary Rounds/Family Conf Outcome: Ongoing Discussed with [facility] re: possible urine culture performed at [...] with questions. Evan Byrd MD Urology, PGY-2 #[id number] I certify that this patient requires inpatient [...] Kallie Lorenzana RN documented in this encounter [facility] 05-20-2022 Note Formatting of this n [...] discharge/transition of care. Outcome: Adequate for Discharge [facility] 05-20-2022 Note Formatting of this n ote might be different from the original. Anne Dillard MD R10 [address] George Please let's have a clear order on how the nephrostomy site dressing need to be changed when the patient goes home so we provide teaching before his discharge Leon GALLARDO #[id number] Leon Cook RN [facility] 05-20-2022 History of Present illness Narrative Images from the original note were not included. [facility] Note: [facility] received the following discharge prescription(s): Medication reconciliation was completed with comparison to discharge reconciliation report. The prescription(s) will be delivered to the patient's bedside on 05/20/22. Total cost is $0. Yanira Her RPh,PharmD Specialty ([place]) [phone] Jakob [phone] [facility] [phone] Raheem [phone] [place] [phone] Bedside Delivery ([facility]) [phone] Attending I saw George Styles at the [facility] on 05/19/2022. I saw and independently [...] Daily Progress Note Patient: George Styles, 1970, [id number] Physician: Liam Julian MD, PGY-3, Pager #[phone], [id number] Subjective/Interval History: No acute events overnight. Passed [...] if transplant nephrology still thinks appropriate. Daya (uNnu) Jeff Saldana MD Division of Hospital Medicine Pager [phone] Attending I saw George Styles at the [facility] on 05/18/2022. I saw and independently [...] Daily Progress Note Patient: George Styles, 1970, [id number] Physician: Nishant Gamez MD, PGY2, Pager #[phone], [id number] Subjective/Interval History: Nephrostomy tube placed yesterday with [...] to have stablized for this to be surgical device sales representative. Daya ([place]un[place]) Jeff Saldana MD Division of Hospital Medicine Pager [phone] Internal Medicine Daily Progress Note Patient: George Styles, 1970, [id number] Physician: Nishant Gamez MD, PGY2, Pager #[phone], [id number] Subjective/Interval History: Worsening creatinine this morning with [...] Saldana MD Division of Hospital Medicine Pager [phone] Attending I saw George Styles at the [facility] on 05/17/2022. I saw and independently [...] of chart and discussion with treatment team, Contact Centre Supervisor has not identified needs at this [...] follow. Introduced self and role of the career and transition teacher to patient. Provided emotional and spiritual support and the patient responded by sharing their experience and discussed the following: - Spirituality/Adventist Affiliation: As a kid attended [employer] hoahaoism but not a strong identity now - Family support - pt's brothers live close by Production Floater provided: - Supportive presence - Active listening - Validation of feelings/emotions Patient encouraged to request a career and transition teacher as needed. Chaplains are available in-house 24 hours a day and 7 days a week. For urgent matters in [facility], please page [phone]. If the request is not urgent, please enter a consult. Consults are responded to within 24 hours. Angie Singh Mdiv, [facility] Burn Unit and Transplant [place] [phone] Production Floater [facility] Production Floater Kirk [phone] [email or web address] 22/06 [facility] Pager [phone] 22/06 Pager ,[facility], and [place] 1500 22/06 Raheem Pager [phone] 05/16/22 1129 Clinical Encounter Type Visited With Patient Visit Type Introduction Pastoral Time Spent 15 min Referral Other (See Comment) (Rounding) Spiritual Assessment Spiritual Observation Spirituality helpful;Identifies as (see comment) (Nondenominational) Emotional Observation Coping well Hope Observation Hopeful and accepting Support Observation By Family Interventions Provided Active listening;Supportive presence Facilitated Verbalization of feelings;Sharing of life story;Identifying support system Explored Expectations Breaker Layer Education Breaker Layer Service Available Yes Educated Patient Outcomes Patient Outcomes Articulated purpose/meaning Plan of Care Continue Visiting PRN Internal Medicine Daily Progress Note Patient: George Styles, 1970, [id number] Physician: Nishant Gamez MD, PGY2, Pager #[phone], [email or web address] Subjective/Interval History: Overall feeling okay this morning. 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 [...] Supervision Transfer Assessment: Sit to Stand Transfer [employer] Level: Sit->Stand: independent Skilled Intervention/Details: Sit->Stand: x1 from EOB Stand to Sit Transfer [employer] Level: Stand->Sit: supervision Assistive Device: Stand->Sit: armed chair Skilled Rationale: Controlled descent for sitting, Verbal cues Gait/Functional Mobility: Gait Assessment [employer] Level: Gait: supervision Assistive Device: Gait: gait belt Gait Distance (feet): 200 Gait Deviations Identified: decreased grace, decreased step length, decreased stride length Gait Skilled Rationale: verbal, upright posture Skilled Intervention/Details - Gait: Pt with steady gait without LOB or complaints of SOB. Stairs: Stairs Assessment [employer] Level: Stair Negotiation: stand-by assist Assistive Device: Stair Negotiation: gait belt, left rail (ascending) Number of stairs: 9 Stairs Skilled Rationale: reciprocal pattern Outcome Score(s): CURRENT [facility] Basic Mobility Inpatient Short Form Turning over in bed: 4 - No Assistance Sitting/standing from chair: 4 - No Assistance Moving from lying on back to sittin - No Assistance Moving to and from bed to chair: 4 - No Assistance Walk in hospital room: 3 - A Little Assistance Climbing 3-5 steps with a railin - A Little Assistance CURRENT [facility] Mobility Raw Score: 22 CURRENT [facility] Mobility Functional Limitation/Modifier: 20.91% Currently Impaired in [...] reported no concerns with discharging home with [place] support. 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 IADL History IADLs: independent Primary Language: Vincentian Home Management Skills: independent Meal Prep Responsibility: [...] Assessment: Transfer Assessment: Sit to Stand Transfer [employer] Level: Sit->Stand: independent Skilled Rationale: Cues for increased safety Skilled Intervention/Details: Sit->Stand: x1 EOB Stand to Sit Transfer [employer] Level: Stand->Sit: supervision Assistive Device: Stand->Sit: gait belt, armed chair Skilled Rationale: Verbal cues, Controlled descent for sitting, Cues for increased safety Skilled Intervention/Details: Stand->Sit: cues for hand placement and controlled descent Functional Mobility: Functional Mobility [employer] Level: Functional Mobility/Gait: stand-by assist Assistive Device: Functional Mobility/Gait: gait belt Functional Mobility Distance: Distance needed for limited community mobility Functional Mobility Deficits: Activity tolerance, Balance, Decreased step length, Generalized weakness Functional Mobility Skilled Rationale: Verbal cues, Facilitate postural control Skilled Intervention/Details - Functional Mobility/Gait: cues for upright posture Outcome Score(s): CURRENT [facility] Daily Activity Inpatient Short Form Putting on/Taking Off Lower Body Clothin - A Little Assistance Bathin - A Little Assistance Toiletin - A Little Assistance Putting on/Taking Off Upper Body Clothin - No Assistance Groomin - No Assistance Eatin - No Assistance CURRENT [facility] Activity Raw Score: 21 CURRENT [facility] Activity Functional Limitation/Modifier: 32.79% Currently Impaired in [...] DAY SURGERY MAIN OR KIDNEY TRANSPLANT W/O DEERING NEPHRECTOMY N/A 04/12/2020 Laterality: N/A; Surgeon: LU [...] by: Mel Norman OT, OTR/L License #: [id number] pager # [phone] 05/20/2022 Upon discontinuation of Acute Care Occupational Therapy Services or patient discharge from the hospital this note represents the current Occupational Therapy Discharge Summary. documented in this encounter [facility] 05-20-2022 Hospital course Narrative Discharge Summary Name: [...] during his recent hospital stay at [facility]. As you may know, George Styles, is [...] Saldana MD Division of Hospital Medicine p: [phone] f: [phone] CONSULTS DURING ADMISSION: IP CONSULT TO SURGERY - UROLOGY IP CONSULT TO NEPHROLOGY - TRANSPLANT (MEDICINE) IP CONSULT TO INTERVENTIONAL RADIOLOGY IP CONSULT TO PHYSICAL THERAPY IP CONSULT TO OCCUPATIONAL THERAPY IP CONSULT TO PHARMACY BEDSIDE DISCHARGE MED DELIVERY IMAGING / PROCEDURES / RESULTS: Should you require further information or copies of results or reports please contact Medical Information Management @ [phone] LABS AT TIME OF DISCHARGE: Lab Results [...] Bruno [address] / [place] [address] MEDICATIONS: Discharge Orders CT ABDOMEN/PELVIS WITHOUT CONTRAST [...] CAPS Generic drug: docusate Follow-up: Zuly Bruno, WATER HYDRANT INSTALLER [address] [facility] [phone] Schedule an appointment as soon as possible for a visit Follow-up appointment with your, primary care physician within 7-10 days, after discharge. [address] [facility] [address] Follow up The department of urology will call you with a follow up appointment. LU Ovalle [address] 11th Floor [facility] [address] Follow up Please make a follow up appointment with Dr. Latham's office. Upcoming Appointments (up to five)-Some appointments for Medical Center outpatient clinics or diagnostic testing locations are not displayed below Provider Department Dept Phone 06/04/2022 10:40 AM [facility] Interventional Radiology Clinic [phone] 06/27/2022 1:30 PM [facility] Department of Radiology Arrive at: Arrive to First Floor Registration Desk [phone] 06/27/2022 2:40 PM Ryan Yepez [facility] Arrive at: Arrive to 2nd Floor, Registration [address] 10/31/2022 1:00 PM Steve Latham [facility] Transplant [facility] [phone] 01/16/2023 9:40 AM TRANSPLANT HEPATOLOGY 3, [facility] Transplant [facility] [phone] Associated attestation - Daya Saldana MD - [...] MD (Peggy) Division of Hospital Medicine Pager [phone] documented in this encounter [facility] 05-20-2022 Hospital Discharge instructions Giulia Cavazos RN [...] be changed by Interventional Radiology. Please call [phone] to schedule this appointment and with any questions or concerns you may have regarding the nephrostomy tube. If you have questions or concerns, please call Interventional Radiology at SOMEONE FROM INTERVENTIONAL RADIOLOGY WILL CALL YOU FOR A FOLLOW UP IN THE IR CLINIC Giulia Cavazos RN Nurse Coordinator Interventional Radiology Interventional Radiology Outpatient scheduling documented in this encounter [facility] 05-19-2022 Note Formatting of this n [...] Ongoing Goal: Interdisciplinary Rounds/Family Conf Outcome: Ongoing [facility] 05-19-2022 Note Formatting of this n ote might be different from the original. Discussed with [facility] re: possible urine culture performed at their facility. However, based on urinalysis completed at that time, which was only notable for hematuria, culture was not performed and sample no longer feasible for culture. Liam Julian MD Internal Medicine/Pediatrics, PGY-3 [facility] 05-18-2022 Note Formatting of this n ote might be different from the original. 2003: IHIS message sent to Dr Justyn Wen, regarding patient passing a small kidney stone, about the size of pea. MD notified. Stone left in strainer in pt bathroom. 0500: IHIS message sent to Dr Justyn Wen, regarding pt BP 174/77. [facility] 05-18-2022 Note Formatting of this n [...] outcomes by discharge/transition of care. Outcome: Ongoing [facility] 05-18-2022 Note Formatting of this n [...] becomes hyponatremic, NS should instead be used. [facility] Work Phone: 05-18-2022 Note Formatting of this n ote might be different from the original. IHIS chat sent to Dr Tray Quintana, regarding pt BP 190/86. Pt complaining of pain at site of neph tube. PRN pain medication given per order parameters. Pt denies any other symptoms at this time. notified and aware. [facility] 05-17-2022 Note Formatting of this n ote might be different from the original. At 0900, I rounded with Dr. Gamez and Dr. Saldana. At that time I checked Mr. Styles's vital signs. His pulse oximeter was low and he was tachypneic. Verbal order at bedside to put nasal cannula on starting at 2liters oxygen and to provide incentive spirometer. T [facility] 05-17-2022 Note Formatting of this n ote might be different from the original. Interventional Radiology procedure completed with IR Attending Dr. Heart / Dr. Le of percutaneous right nephrostomy tube placement transplant kidney 10.2 Fr Griffin acosta Pt tolerated procedure with moderate sedation local numbing agent . Transported to inpatient after phase I recovery. Post procedure orders in place. [facility] 05-16-2022 Note Formatting of this n ote might be different from the original. At 1530, I text chavad Kaitlynn Gomez MD that patient has only had 25ml urine output in myers this afternoon. [facility] 05-16-2022 Note Formatting of this n [...] with questions. Evan Byrd MD Urology, PGY-2 #[id number] [facility] Work Phone: 05-16-2022 Note Formatting of this n ote might be different from the original. I certify that this patient requires inpatient services at this time. I anticipate the expected length of stay will include at least two midnights. Inpatient services are due to the following medical concerns Obstructive kidney stone. Plans for post hospitalization care will be discharge to home. [facility] 05-16-2022 Consult note Associated Order (s): IP CONSULT TO NEPHROLOGY - TRANSPLANT (MEDICINE) I saw George Styles at the [facility] on 05/16/2022. Reason for Consultation: kidney [...] he was given flomax and sent home. Jackson better but noticed more pain and decreased [...] best assessment and recommendations. Maxi Pringle MD [facility] Work Phone: 05-16-2022 Consult note Associated Order (s): IP CONSULT TO NEPHROLOGY - TRANSPLANT (MEDICINE) I saw George Styles at the [facility] on 05/16/2022. Reason for Consultation: kidney [...] he was given flomax and sent home. [place] better but noticed more pain and decreased [...] states he went to his local ED [place] and he was put on Flomax and he did improve. Pt states last night he was unable to void with severe right sided abd pain. Pt states nausea and no vomiting or fevers. Pt states he went back to [place] ED at 0100 and they placed a [...] orthotopic (N/A, 04/12/2020); and kidney transplant w/o [place] nephrectomy (N/A, 04/12/2020). 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 The [place] kidneys are progressively atrophic bilaterally compared to [...] of 06/14/2020 are no longer present. The [place] distal right ureter is decompressed beyond this [...] with surgical history for renal graft and [place] right urinary drainage, as a discrete ureteroneocystostomy is not identified, and the graft may be draining via a ureteroureterostomy. Urology consultation recommended. 3. The [place] kidneys are bilaterally atrophic, with right renal sinus calcifications consistent with nonobstructing right [place] renal calculi up to 6 mm. Normal [...] PGY-3, Department of Urologic Surgery Pager #: [phone] Associated attestation - Ryan Yepez MD - [...] continue flomax documented in this encounter [facility] 05-16-2022 Note Formatting of this n [...] supported Trust Relationship/Rapport: care explained choices provided [facility] 05-16-2022 Note Formatting of this n ote might be different from the original. On admission to R10, a dual RN initial assessment of skin condition was performed by Kallie Lorenzana RN and Sheri Arguelles RN. Skin Assessment: WDL Jose Score: 20 LDA Added:N Kallie Lorenzana RN [facility] 05-15-2022 Emergency department Note Report given to Kallie RN at 10 [facility] 05-15-2022 Emergency department Note Report given [...] diagnosed Thursday and was sent home with [facility]. He went back to that ED [...] 04/12/2020 Laterality: N/A; Surgeon: LU Palma; Location: [facility] SAME DAY SURGERY MAIN OR KIDNEY TRANSPLANT W/O DEERING NEPHRECTOMY N/A 04/12/2020 Laterality: N/A; Surgeon: LU Palma; Location: [facility] SAME DAY SURGERY MAIN OR OTHER [...] Schneider MD Resident 05/15/222030 Pt arrives from [facility] with kidney stones. Pt states he had right lower abd pain and right flank pain with blood in his urine since Thursday. Pt states he went to his local ED [place] and he was put on Flomax and he did improve. Pt states last night he was unable to void with severe right sided abd pain. Pt states nausea and no vomiting or fevers. Pt states he went back to [place] ED at 0100 and they placed a myers and CT scan completed and multiple kidney stones noted. [facility] had liver and kidney transplant in 03/2020. 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 Strength [...] dilation of the calyces may represent narrowing/partial [id number] ofthe ureter and mild hydronephrosis or sequela [...] for himself) Staffed with Dr Prince Signed, vEan Bennett MD Associated attestation - Fred Prince [...] Medicine [id number] documented in this encounter [facility] 05-15-2022 Emergency department Note Bladder scan with Dr Villatoro at bedside, 14ml noted [facility] 05-15-2022 Consult note Associated Order (s): IP [...] states he went to his local ED [place] and he was put on Flomax and he did improve. Pt states last night he was unable to void with severe right sided abd pain. Pt states nausea and no vomiting or fevers. Pt states he went back to [place] ED at 0100 and they placed a [...] orthotopic (N/A, 04/12/2020); and kidney transplant w/o [place] nephrectomy (N/A, 04/12/2020). 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 The [place] kidneys are progressively atrophic bilaterally compared to [...] of 06/14/2020 are no longer present. The [place] distal right ureter is decompressed beyond this [...] with surgical history for renal graft and [place] right urinary drainage, as a discrete ureteroneocystostomy is not identified, and the graft may be draining via a ureteroureterostomy. Urology consultation recommended. 3. The [place] kidneys are bilaterally atrophic, with right renal sinus calcifications consistent with nonobstructing right [place] renal calculi up to 6 mm. Normal [...] PGY-3, Department of Urologic Surgery Pager #: [phone] Associated attestation - Ryan Yepez MD - [...] before surgical intervention --may continue flomax [facility] Work Phone: 05-15-2022 Emergency department Note Advised Dr Schneider concerning no urine output via myers catheter. [facility] 05-15-2022 Physician Emergency department Note ED Attending [...] plan of care. Gian Villatoro MD 05/15/222003 [facility] Work Phone: 05-15-[address] Schneider made aware of only 30 ml urine via myers since arrival to room. [facility] 05-15-2022 Physician Emergency department Note dEPARTMENT [...] DAY SURGERY MAIN OR KIDNEY TRANSPLANT W/O DEERING NEPHRECTOMY N/A 04/12/2020 Laterality: N/A; Surgeon: LU Palma; Location: [facility] SAME DAY SURGERY MAIN OR OTHER [...] incorrections. Matt Schneider MD Resident 05/15/222030 [facility] Work Phone: 05-15-2022 Emergency department Note Pt arrives from [facility] with kidney stones. Pt states he had right lower abd pain and right flank pain with blood in his urine since Thursday. Pt states he went to his local ED [place] and he was put on Flomax and he did improve. Pt states last night he was unable to void with severe right sided abd pain. Pt states nausea and no vomiting or fevers. Pt states he went back to [place] ED at 0100 and they placed a myers and CT scan completed and multiple kidney stones noted. [facility] as he had liver and kidney transplant in 03/2020. [facility] 03-14-2022 History of Present illness Narrative [...] No Mailing/Pickup Date: 03/17/2022 Shipping Address: [address] [place] [address] [address] Contact Info: Specialty ([place]) [phone] Jakob [phone] [facility] [phone] Raheem [phone] Bedside Delivery ([facility]) [phone] documented in this encounter [facility] 06-14-2021 History of Present illness Narrative [...] Goal Progress: Satisfactory Contact Info: Specialty ([place]) [phone] Jakob [phone] [facility] [phone] Raheem [phone] Bedside Delivery ([facility]) [phone] [facility]REACH: Call Information: Date [...] Location: Home Signature Required: Yes Shipping Address: [address] [place] [address] [address] [facility] [address] Contact Info: Specialty ([place]) [phone] Jakob [phone] [facility] [phone] Raheem [phone] Bedside Delivery ([facility]) [phone] documented in this encounter [facility] Evaluation note Diagnosis FAYE (acute kidney injury)- Primary Acute kidney failure, unspecified Hydronephrosis due to obstruction of ureteral orifice Hydronephrosis due to obstruction of ureteral orifice FAYE (acute kidney injury) Acute kidney failure, unspecified [facility] Follow-up exam- Primary Unspecified follow-up examination [facility] Diagnosis Immunosuppressed status- Primary Unspecified disorder of immune mechanism Kidney replaced by transplant Liver replaced by transplant Abnormal blood chemistry Other abnormal blood chemistry High risk medication use Encounter for long-term (current) use of other medications Aftercare following organ transplant Liver transplant recipient [facility] Attention to nephrostomy- Primary [facility] Diagnosis Other hydronephrosis- Primary [facility] FAYE (acute kidney injury) Acute kidney failure, unspecified [facility] Diagnosis Other hydronephrosis- Primary -donor kidney transplant recipient Kidney replaced by transplant [facility] Diagnosis Other hydronephrosis [facility] Diagnosis 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) Encounter for screening for malignant neoplasm of prostate Special screening for malignant neoplasm of prostate [facility] Diagnosis Abnormal blood chemistry- Primary Other abnormal blood chemistry Liver transplant recipient Kidney replaced by transplant Immunosuppressed status Unspecified disorder of immune mechanism Aftercare following organ transplant [facility] Diagnosis Kidney replaced by transplant- [facility] Immunosuppressed status- Primary Unspecified disorder of immune mechanism Kidney replaced by transplant Aftercare following organ transplant High risk medication use Encounter for long-term (current) use of other medications Other general symptoms and signs Abnormal blood chemistry Other abnormal blood chemistry Hypertension secondary to other renal disorders [facility] Diagnosis Histoplasmosis- Primary Histoplasmosis, unspecified without [...] Fever, unspecified [facility] Diagnosis Bilateral lower extremity edema- Primary 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) Atherosclerosis 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) Atherosclerosis of aorta Obesity (BMI 30-39.9) DARLENE (obstructive sleep apnea) Obstructive sleep apnea (adult) (pediatric) Tremor Abnormal involuntary movements Immunocompromised (CMS/HCC) Unspecified immunity deficiency Primary hypertension (CMS/HCC) Unspecified essential hypertension Shortness of breath documented in this encounter [facility] Diagnosis Pleural effusion on right- [...] pre-operative examination [facility] Consultation (Routine) - New Request Specialty Diagnoses / Procedures Referred By Deni edwards Referred To Contact Interventional Radiology Diagnoses Hydronephrosis due to obstruction of ureteral orifice Daya Saldana MD [address] [place] [address] Referral ID Status Reason Start Date Expiration Date V isits Requested Visits Authorized [id number] New Request 05/18/2022 06/12/2023 1 1 * Radiology (Emergency) - New Request Specialty Diagnoses / Procedures Referred By Deni edwards Referred To Contact Procedures US RENAL TRANSPLANT SCAN Daya Saldana MD [address] [place] [address] Referral ID Status Reason Start Date Expiration Date V isits Requested Visits Authorized [id number] New Request 05/16/2022 06/10/2023 1 1 * Consultation (Routine) - New Request Specialty Diagnoses / Procedures Referred By Contac t Referred To Contact Urology Diagnoses FAYE (acute kidney injury) Ryan Yepez MD [address] [place] [address] [address] [place] [address] Referral ID Status Reason Start Date Expiration Date V isits Requested Visits Authorized [id number] New Request 05/16/2022 06/10/2023 1 1 * MRI/CAT Scan (Routine) - New Request Specialty Diagnoses / Procedures Referred By Contac t Referred To Contact Diagnoses FAYE (acute kidney injury) Procedures CT ABDOMEN/PELVIS WITHOUT CONTRAST CHG CT SCAN,ABDOMENT AND PELVIS,W/O CONTRAST Ryan Yepez MD [address] [place] [address] [address] [place] [address] Referral ID Status Reason Start Date Expiration Date V isits Requested Visits Authorized [id number] New Request 05/16/2022 06/10/2023 1 1 * (Routine) - Pending Review Specialty Diagnoses / Procedures Referred By Contac t Referred To Contact Procedures PLATELET MONITORING PER PROTOCOL Daya Saldana MD [address] [place] [address] Referral ID Status Reason Start Date Expiration Date V isits Requested Visits Authorized [id number] Pending Review 05/15/2022 06/09/2023 1 1 * (Routine) - Pending Review Specialty Diagnoses / Procedures Referred By Contac t Referred To Contact Procedures DVT/VTE RISK ASSESSMENT Daya Saldana MD [address] [place] [address] Referral ID Status Reason Start Date Expiration Date V isits Requested Visits Authorized [id number] Pending Review 05/15/2022 06/09/2023 1 1 * (Routine) Specialty Diagnoses / Procedures Referred By Contac t Referred To Contact Evan Bennett MD [address] [place] [address] Referral ID Status Reason Start Date Expiration Date Visits Re quested Visits Authorized * (Routine) Specialty Diagnoses / Procedures Referred By Contac t Referred To Contact Evan Bennett MD [address] [place] [address] Referral ID Status Reason Start Date Expiration Date Visits Re quested Visits Authorized [facility] for referral (narrative)* Consultation (Routine) - New Request Specialty Diagnoses / Procedures Referred By Contac t Referred To Contact Sleep Medicine Diagnoses Hypoxia Kevin Sage MD [address] [place] [address] Referral ID Status Reason Start Date Expiration Date V isits Requested Visits Authorized [id number] New Request 09/10/2023 10/04/2024 1 1 * MRI/CAT Scan (Routine) - New Request Specialty Diagnoses / Procedures Referred By Contac t Referred To Contact Diagnoses Histoplasmosis Procedures CT CHEST WITHOUT CONTRAST CHG DIAGNOSTIC COMPUTED TOMOGRAPHY THORAX W/O CNTRST Kevin Sage MD [address] [place] [address] Referral ID Status Reason Start Date Expiration Date V isits Requested Visits Authorized [id number] New Request 09/10/2023 10/04/2024 1 1 * Radiology (Routine) - New Request Specialty Diagnoses / Procedures Referred By Contac t Referred To Contact Procedures US RENAL TRANSPLANT SCAN Steve Latham MBBS [address] [place] [address] Referral ID Status Reason Start Date Expiration Date V isits Requested Visits Authorized [id number] New Request 08/29/2023 09/22/2024 1 1 * (Routine) - New Request Specialty Diagnoses / Procedures Referred By Contac t Referred To Contact Procedures PLATELET MONITORING PER PROTOCOL Steve Latham MBBS [address] [place] [address] Referral ID Status Reason Start Date Expiration Date V isits Requested Visits Authorized [id number] New Request 08/28/2023 09/21/2024 1 1 * (Routine) - New Request Specialty Diagnoses / Procedures Referred By Contac t Referred To Contact Procedures DVT/VTE RISK ASSESSMENT Steve Latham MBBS [address] [place] [address] Referral ID Status Reason Start Date Expiration Date V isits Requested Visits Authorized [id number] New Request 08/28/2023 09/21/2024 1 1 [facility] Instructions * Patient Instructions - Christin Elizabeth APRN-WATER HYDRANT INSTALLER - 10/19/2018 9:21 AM EST You should [...] and Sophie Cary. Sophie Cary is your pre-fieldwork coordinator she can be reached at [phone] at any time for questions during the pre-transplant process. Your evaluation is complete pendin. Abdominal ultrasound. 2. 6 minute walk test. 3. Cardiology evaluation. Additionally, your accident examiner will recommend testing to screen for coronary [...] after you have satisfied requirements dictated by [employer] company. Once your testing is complete, we [...] ___ Other Name MRN * Christin Elizabeth, SEALER OPERATOR-[facility] - 10/19/2018 9:00 AM EST Formatting of this note may be different from the original. History of Present Illness: Chief Complaint Patient presents with Follow-up Cirrhosis George Styles is a 48 y.o. male who presents to the [facility] G[facility] today regarding his diagnosis/chief complaint(s) of Cirrhosis secondary to ETOH, with ESRD follows with Dr. Orr. Currently undergoing evaluation for liver/kidney transplant. Has been seen in transplant clinic for eval. Still undergoing pre testing. Diagnosed in April 2018. Last drink was immediately prior to hospital admission in [place] for ACLF. Hospital course notable for ARF [...] (human immunodeficiency virus infection); Hyperlipidemia; Hyperthyroidism; Hypothyroidism; MT (myocardial infarction); Migraine; DARLENE (obstructive sleep apnea); [...] kidney transplant evaluation. Pt was AOx3. Transplant Facilities Engineering Manager role/function was explained and reviewed. The patient was informed that the results of this assessment will be shared with the referring provider and the transplant team. The patient verbalized understanding of this information. The [facility] psychosocial assessment consent form has been explained to patient and has been signed. Pt is completing this evaluation with brother (David) in the Outpatient setting. AMRITK educated pt on the benefits of completing/filing advanced directives and resources were offered. Pt identifies with [employer] scientology. Pt confirms being a [place] Citizen. Pt.'s primary language is Vincentian. Pt confirms the ability to read,write, and understand Vincentian. Pt denies potential donors. Donor cards and [...] has valid license, does not regularly drive (WATER HYDRANT INSTALLER recommends that he not to drive). He [...] related disease etoh cirrohosis April dx in [place] for thirty days. Pt reports learning that [...] as well as referred him to pre fieldwork coordinator. Pt and support demonstrated moderate understanding [...] Patient's brother David is a self employed deep well contractor. Additional support includes his other brother Tyshawn and his Mary live fifteen minutes away. Of note Mary is a manager terminal for a [employer] is available to assist automotive parts clerk. He confirms being comfortable asking for help. [...] in 2010, he was employed by the [employer]. He has access to SSDI payment (SSDI starts in November) in regards to financial means pre/ post-transplant. Pt confirms (meeting bills currently, ) being able to meet daily needs. Patient's brother asking for additional information on community resources, food stamps and [place]. Refer him to pt.'s dialysis center and the [facility]. Hereports access to Medicaid. Pt. denies [...] court ordered treatment after a DUI charge [facility] in [place], court ordered treatment in 2001 and in [...] by patient from his primary medical provider- WATER HYDRANT INSTALLER patient was noted as attending an alcohol [...] new visit Date of service: 10/12/2018 -Referring preprint analyst for today's consult: -Primary Care Provider: Zuly Bruno CC: Chief Complaint Patient presents with Liver Recipient Evaluation History of Present Illness George Styles is a 48 y.o. male who presents to the [facility] liver transplant surgery clinic today for [...] EST Timed up and go 9.9 seconds Cigar Making Machine Supervisor Left 52.8 pounds Right 44.9 pounds Waist circ 38.5 inches * Sophie Cary, SAMI - 10/12/2018 10:00 AM EST Formatting of this note may be different from the original. Patient George Styles ([id number]), accompanied by his brother, was seen on [...] any further questions. Sophie GUERINN, RN Liver Numerical Tool Programmer Etiology: ETOH HCC: No ETOH: Yes Last [...] Orr MD [address] [address] Status Reason Specialty Diagnoses / Procedures Referred By Contact Referred To Contact New Request Diagnoses Cirrhosis of liver with ascites, unspecified hepatic cirrhosis type Procedures US ABDOMEN RUQ/LIVER/GB Yovani Orr MD [address] [address] Specialty Diagnoses / Procedures Referred By Contac t Referred To Contact Diagnoses FAYE (acute kidney injury) Procedures CT ABDOMEN/PELVIS WITHOUT CONTRAST CHG CT SCAN,ABDOMENT AND PELVIS,W/O CONTRAST Central Scheduling [address] [place] [address] Referral ID Status Reason Start Date Expiration Date V isits Requested Visits Authorized [id number] Pending Review 05/16/2022 06/10/2023 1 1 Specialty Diagnoses / Procedures Referred By Contac t Referred To Contact Diagnoses Other hydronephrosis Procedures FLUORO IMAGING FOR UROLOGY Ryan Yepez MD [address] [facility] [address] [place] [address] Referral ID Status Reason Start Date Expiration Date V isits Requested Visits Authorized [id number] New Request 07/07/2022 08/01/2023 1 1 Specialty Diagnoses / Procedures Referred By Contac t Referred To Contact Procedures DIRECT ADMIT REQUEST Steve Latham MBBS [address] [place] [address] Referral ID Status Reason Start Date Expiration Date V isits Requested Visits Authorized [id number] New Request 08/28/2023 09/21/2024 1 1 Specialty Diagnoses / Procedures Referred By Contac t Referred To Contact Radiology Diagnoses DARLENE (obstructive sleep apnea) Primary hypertension (CMS/HCC) Bilateral lower extremity edema Shortness of breath Procedures Echocardiogram 2D complete Zuly Bruno NP [address] [place] [address] Referral ID Status Reason Start Date Expiration Date Visits Requested Visits Authorized [id number] Incomplete Perform Procedure 01/06/2024 07/04/2024 1 1 Specialty Diagnoses / Procedures Referred By Contac t Referred To Contact Procedures US IMAGING REGIONAL ANESTHESIA Kehinde Gutierrez MD [address] [place] [address] Referral ID Status Reason Start Date Expiration Date V isits Requested Visits Authorized [id number] New Request 01/22/2024 02/15/2025 1 1 Specialty Diagnoses / Procedures Referred By Contac t Referred To Contact Cardiovascular Medicine Diagnoses Heart failure, diastolic, acute Kelvin Pacheco MD, MBBS [address] [place] [address] Referral ID Status Reason Start Date Expiration Date V isits Requested Visits Authorized [id number] New Request 01/20/2024 02/13/2025 1 1 Specialty Diagnoses / Procedures Referred By Contac t Referred To Contact Procedures US ABDOMEN LIVER DOPPLER US ABDOMEN LIVER TRANSPLANT DOPPLER Timothy Joseph MD [address] [facility] [address] [place] [address] Referral ID Status Reason Start Date Expiration Date V isits Requested Visits Authorized [id number] New Request 01/16/2024 02/09/2025 1 1 Specialty Diagnoses / Procedures Referred By Contac t Referred To Contact Procedures DVT/VTE RISK ASSESSMENT Kelvin Pacheco MD, MBBS [address] [place] [address] Referral ID Status Reason Start Date Expiration Date V isits Requested Visits Authorized [id number] New Request 01/16/2024 02/09/2025 1 1 Specialty Diagnoses / Procedures Referred By Contac t Referred To Contact Procedures PLATELET MONITORING PER PROTOCOL Kelvin Pacheco MD, MBBS [address] [place] [address] Referral ID Status Reason Start Date Expiration Date V isits Requested Visits Authorized [id number] New Request 01/16/2024 02/09/2025 1 1 Referral ID Status Reason Start Date Expiration Date V isits Requested Visits Authorized [id number] New Request 01/16/2024 02/09/2025 1 1 Specialty Diagnoses / Procedures Referred By Contac t Referred To Contact Procedures ECG Kelvin Pacheco MD, MBBS [address] [place] [address] Referral ID Status Reason Start Date Expiration Date V isits Requested Visits Authorized [id number] New Request 01/16/2024 02/09/2025 1 1 Advance Directives Documents on File Type Date Recorded Patient National Business Director Expl anation Advance Directives and Living Will Power of Tool Shaper Set Up Operator Latest Code Status on File Code Status [...] Orr MD [address] [address] Status Reason Specialty Diagnoses / Procedures Referre d By Contact Referred To Contact Denied Diagnoses Alcoholic cirrhosis, unspecified whether ascites present Pre-transplant evaluation for liver transplant Procedures MRI ABDOMEN WITH CONTRAST [place] MRI, ABDOMEN W/CONTRAST Yovani Orr MD [address] [address] Reason Comments Liver Recipient Evaluation Status Reason Specialty Diagnoses / Procedures Referred By Contact Referred To Contact New Request Transplant / Transplant Surgery Procedures PRE NEW PATIENT Yovani Orr MD [address] [place] [address] Alfredito Restrepo MD [address] [place] [address] Reason Comments Reschedule Reason Comments Outside Medical Records Request Reason Comments Social Work Follow-up Reason Comments Kidney Stone Specialty Diagnoses / Procedures Referred By Contdaniel t Referred To Contact Diagnoses Obstructing kidney stone, s/p kidney transplant 2019 Daya Saldana MD [address] [place] [address] [facility] [address] [place] [address] Referral ID Status Reason Start Date Expiration Date Visits Re quested Visits Authorized [id number] 1 1 Reason Comments Follow-up Reason Comments Kidney Recipient Follow-up Liver Recipient Follow-up Reason Comments Consult Reason Comments New Patient Hospital follow up Specialty Diagnoses / Procedures Referred By Deni t Referred To Contact Urology Diagnoses hosp fu with [address] prior Procedures NEW TO DOC/RET PATIENT Zuly Bruno, WATER HYDRANT INSTALLER [address] [place] [address] Ryan Yepez MD [address] [facility] [address] [place] [address] Referral ID Status Reason Start Date Expiration Date Visits Re quested Visits Authorized [id number] Closed 06/27/2022 07/22/2023 1 1 Specialty Diagnoses / Procedures Referred By Contac t Referred To Contact Diagnoses FAYE (acute kidney injury) Procedures CT ABDOMEN/PELVIS WITHOUT CONTRAST CHG CT SCAN,ABDOMENT AND PELVIS,W/O CONTRAST Central Scheduling [address] [place] [address] Referral ID Status Reason Start Date Expiration Date V isits Requested Visits Authorized [id number] Pending Review 05/16/2022 06/10/2023 1 1 Reason Comments Follow-up Specialty Diagnoses / Procedures Referred By Contac t Referred To Contact Urology Diagnoses 1 week fu post NT clamp Procedures RETURN PATIENT Zuly Bruno, ROB [address] [place] [address] Ryan Yepez MD [address] [place] [address] [address] [place] [address] Referral ID Status Reason Start Date Expiration Date Visits Requested Visits Authorized [id number] Authorized - 07/07/2022 08/01/2023 2 2 Specialty Diagnoses / Procedures Referred By Contac t Referred To Contact Diagnoses Other hydronephrosis Procedures FLUORO IMAGING FOR UROLOGY Ryan Yepez MD [address] [place] [address] [address] [place] [address] Referral ID Status Reason Start Date Expiration Date V isits Requested Visits Authorized [id number] New Request 07/07/2022 08/01/2023 1 1 Specialty Diagnoses / Procedures Referred By Contac t Referred To Contact Urology Diagnoses 1 week fu post NT clamp Procedures RETURN PATIENT Zuly Bruno, ROB [address] [place] [address] Ryan Yepez MD [address] [place] [address] [address] [place] [address] Referral ID Status Reason Start Date Expiration Date Visits Re quested Visits Authorized [id number] Closed 07/07/2022 08/01/2023 2 2 Reason Comments Liver Recipient Follow-up Reason Comments Kidney Recipient Follow-up Reason Comments Kidney Recipient Follow-up Specialty Diagnoses / Procedures Referred By Contac t Referred To Contact Diagnoses Kidney replaced by transplant Steve Latham, LU [address] [place] [address] [facility] [address] [place] [address] Referral ID Status Reason Start Date Expiration Date Visits Re quested Visits Authorized [id number] 1 1 Specialty Diagnoses / Procedures Referred By Contac t Referred To Contact Diagnoses Pleural effusion on right PNEUMONIA- HX LIVER AND KIDNEY TRANSPLANT Kevin Sage MD [address] [place] [address] [facility] [address] [place] [address] Referral ID Status Reason Start Date Expiration Date Visits Re quested Visits Authorized [id number] 1 1 (unrecognized sect ion and content) No Status Records FoundNo Status Records FoundNo Status Records FoundNo Status Records FoundNo Status Records FoundNo Status Records Found INFORMATION SOURCE (unrecogn ized section and content) DATE CREATED AUTHOR 01/07/2020 [facility] DATE CREATED AUTHOR AUTHOR'S ORGANIZ ATION 01/27/2021 [facility] DATE CREATED AUTHOR AUTHOR'S ORGANIZ ATION 04/13/2023 [facility] DATE CREATED AUTHOR AUTHOR'S ORGANIZ ATION 05/11/2023 [facility] DATE CREATED AUTHOR AUTHOR'S ORGANIZ ATION 01/07/2024 [facility] EPIC DATE CREATED AUTHOR AUTHOR'S ORGANIZ ATION 01/31/2024 [facility] Care Teams (unrecognized sec tion and content) Otorhinolaryngologist Relationship Specialty Start Date End Date Zuly Bruno CNP PCP - General 07/19/18 Comfort Rivera [facility] [address] [place] [address] Pharmacist Pharmacist 05/16/20 Angel Carpio, LIVIA,PharmD Pharmacist Pharmacist 05/16/20 Te Leigh RP,PharmD Pharmacist Pharmacist 01/09/21 Otorhinolaryngologist Relationship Specialty Start Date End Date Zuly Bruno CNP PCP - General 07/19/18 Comfort Rivera, [facility] [address] [facility] [address] [place] [address] Pharmacist Pharmacist 05/16/20 Angel Carpio, [facility],PharmD Pharmacist Pharmacist 05/16/20 Te Leigh [facility],PharmD Pharmacist Pharmacist 01/09/21 Otorhinolaryngologist Relationship Specialty Start Date End Date Zuly Bruno CNP PCP - General 07/19/18 Otorhinolaryngologist Relationship Specialty Start Date End Date Zuly Bruno CNP PCP - General 07/19/18 Otorhinolaryngologist Relationship Specialty Start Date End Date Zuly Bruno CNP PCP - General 07/19/18 Otorhinolaryngologist Relationship Specialty Start Date End Date Zuly Bruno CNP PCP - General 07/19/18 Otorhinolaryngologist Relationship Specialty Start Date End Date Zuly Bruno CNP PCP - General 07/19/18 Otorhinolaryngologist Relationship Specialty Start Date End Date Zuly Bruno CNP PCP - General 07/19/18 Otorhinolaryngologist Relationship Specialty Start Date End Date Zuly Bruno WATER HYDRANT INSTALLER PCP - General 07/19/18 Otorhinolaryngologist Relationship Specialty Start Date End Date Zuly Bruno WATER HYDRANT INSTALLER PCP - General 07/19/18 Otorhinolaryngologist Relationship Specialty Start Date End Date Zuly Bruno CNP PCP - General 07/19/18 Otorhinolaryngologist Relationship Specialty Start Date End Date Zuly Bruno CNP PCP - General 07/19/18 Otorhinolaryngologist Relationship Specialty Start Date End Date Zuly Bruno CNP PCP - General 07/19/18 Otorhinolaryngologist Relationship Specialty Start Date End Date Zuly Bruno CNP PCP - General 07/19/18 Otorhinolaryngologist Relationship Specialty Start Date End Date Zuly Bruno CNP PCP - General 07/19/18 Otorhinolaryngologist Relationship Specialty Start Date End Date Zuly Bruno CNP PCP - General 07/19/18 Otorhinolaryngologist Relationship Specialty Start Date End Date Zuly Bruno CNP PCP - General 07/19/18 Evan White DO [facility] [place] [address] Infectious Disease Infectious Disease 09/09/23 Otorhinolaryngologist Relationship Specialty Start Date End Date Zuly Bruno CNP PCP - General 07/19/18 Evan White DO [facility] [place] [address] Infectious Disease Infectious Disease 09/09/23 Otorhinolaryngologist Relationship Specialty Start Date End Date Zuly Bruno CNP PCP - General 07/19/18 Evan White DO [facility] [address] [place] [id number] Infectious Disease Infectious Disease 09/09/23 Otorhinolaryngologist Relationship Specialty Start Date End Date Momo Verdugo MD PCP - General Family Medicine 05/21/23 Otorhinolaryngologist Relationship Specialty Start Date End Date Momo Verdugo MD PCP - General Family Medicine 05/21/23 Otorhinolaryngologist Relationship Specialty Start Date End Date Momo Verdugo MD PCP - General Family Medicine 05/21/23 Otorhinolaryngologist Relationship Specialty Start Date End Date Zuly Bruno CNP PCP - General 07/19/18 Evan White DO [facility] [place] [address] Infectious Disease Infectious Disease 09/09/23 Otorhinolaryngologist Relationship Specialty Start Date End Date Zuly Bruno CNP PCP - General 07/19/18 Evan White DO [facility] [place] [address] Infectious Disease Infectious Disease 09/09/23 Otorhinolaryngologist Relationship Specialty Start Date End Date Zuly Bruno CNP PCP - General 07/19/18 [place] [address] [place] [id number] Infectious Disease Infectious Disease 09/09/23 Otorhinolaryngologist Relationship Specialty Start Date End Date Zuly Bruno CNP PCP - General 07/19/18 Evan White DO [address] [place] [id number] Infectious Disease Infectious Disease 09/09/23 Scheduled Active [...] Discontinued 1737 ($$New Bag$$ - Provider: Mel Hamptno RN)1807 (Stopped - Provider: Carolyn Isaac RN) [...] 08 (Given - Provider: Terra Heart RN)105 ([facility] Hold - Provider: Automatic Transfer - Reason: Transfer to a Procedural area)141 ([facility] Unhold - Provider: Automatic Transfer)2008 (Given - Provider: Tati Ahmdai RN) 919 (Given - Provider: Terra Heart RN) Sulfamethoxazole-trime thoprim (BACTRIM DS) 800-160 MG per tablet 1 tablet 1 tablet, Oral, THREE TIMES WEEKLY (Once per day on Thursday), First dose on Thu01/18/24 at 0900, Until Discontinued 08 (Given - Provider: Terra Heart RN)105 ([facility] Hold - Provider: Automatic Transfer - Reason: Transfer to a Procedural area)141 ([facility] Unhold - Provider: Automatic Transfer) tacrolimus (PROGRAF) susp 0.2 mg 0.2 mg, Oral, CUSTOM FREQUENCY (Once per day on Thursday), First dose on Thu01/16/24 at 0900, Until Discontinued, Caution check route of administration. For sublingual administration, place liquid under tongue and allow absorption. 08 (Given - Provider: Erica Gudino RN) 1052 ([facility] Hold - Provider: Automatic Transfer - Reason: Transfer to a Procedural area)141 ([facility] Unhold - Provider: Automatic Transfer) 922 (Given - Provider: Terra Heart RN) Tamsulosin HCl (FLOMAX) capsule 0.4 mg 0.4 mg, Oral, DAILY, First dose on 01/16/24 at 0900, Until Discontinued, Slow release product. Do not chew or crush 0842 (Given - Provider: Erica Gudino RN) 08 (Given - Provider: Terra Heart RN)105 ([facility] Hold - Provider: Automatic Transfer - Reason: Transfer to a Procedural area)1414 ([facility] Unhold - Provider: Automatic Transfer) [...] 0841 (Given - Provider: Terra Heart RN)1053 ([facility] Hold - Provider: Automatic Transfer - Reason: Transfer to a Procedural area)1414 ([facility] Unhold - Provider: Automatic Transfer) [...] from all sources in 24 hours. 1053 ([facility] Hold - Provider: Automatic Transfer - Reason: Transfer to a Procedural area)1414 ([facility] Unhold - Provider: Automatic Transfer)1806 [...] 200-200 mg and Simethicone 20 mg) 1053 ([facility] Hold - Provider: Automatic Transfer - Reason: Transfer to a Procedural area)1414 ([facility] Unhold - Provider: Automatic Transfer) guaiFENesin (ROBITUSSIN) oral solution 400 mg 400 mg, Oral, EVERY 6 HOURS NEEDED, Starting on 01/16/24 at 0202, Until 01/23/24 at 1752, Cough, Congestion 1053 ([facility] Hold - Provider: Automatic Transfer - Reason: Transfer to a Procedural area)1414 ([facility] Unhold - Provider: Automatic Transfer) [...] 0016, Until 01/23/24 at 1752, Insomnia 1053 ([facility] Hold - Provider: Automatic Transfer - Reason: Transfer to a Procedural area)1414 ([facility] Unhold - Provider: Automatic Transfer)2355 (Given - Provider: Tati Ahmadi, SAMI) Ondansetron (ZOFRAN) tablet 4 mg(Linked Group 1) 4 mg, Oral, EVERY 6 HOURS NEEDED, Starting on 01/16/24 at 0202, Until 01/23/24 at 1752, Nausea / Vomiting, 1st line for Nausea/Vomiting 1053 ([facility] Hold - Provider: Automatic Transfer - Reason: Transfer to a Procedural area)1414 ([facility] Unhold - Provider: Automatic Transfer)1809 (See Alternative - Provider: Terra Heart, SAMI) 0430 (See Alternative - Provider: Tati Ahmadi, SAMI)1415 (Given - Provider: Terra Heart, SAMI) Ondansetron 4mg/2ml (ZOFRAN) injection 4 mg(Linked Group 1) 4 mg, Intravenous, EVERY 6 HOURS NEEDED, Starting on 01/16/24 at 0202, Until 01/23/24 at 1752, Nausea / Vomiting, 1st line for Nausea/Vomiting 1053 ([facility] Hold - Provider: Automatic Transfer - Reason: Transfer to a Procedural area)1414 ([facility] Unhold - Provider: Automatic Transfer)1809 [...] 01/23/24 at 1752, Constipation 1st Line 1053 ([facility] Hold - Provider: Automatic Transfer - Reason: Transfer to a Procedural area)1414 ([facility] Unhold - Provider: Automatic Transfer) Prochlorperazine (COMPAZINE) injection 10 mg 10 mg, Intravenous, EVERY 6 HOURS NEEDED, Starting on 01/17/24 at 1538, Until 01/23/24 at 1752, Nausea / Vomiting, Refractory Nausea Vomiting, For IV route: dilute dose with 10mL normal saline and give by slow IV push at a rate of 5mg/min. Maximum of 40mg/day. 1053 ([facility] Hold - Provider: Automatic Transfer - Reason: Transfer to a Procedural area)1414 ([facility] Unhold - Provider: Automatic Transfer)2349 [...] BE BASED ON THE PRIMARY CLINICAL RECORDS. [facility]. provides no warranty or guarantee of the accuracy or completeness of information in this document.
[2024-02-12 07:32] LABS: Eosinophils Absolute Auto 0.1 10^3/uL (0.0-0.7); Eosinophils Percent Auto 1.9 % (0.9-7.0); Hematocrit 44.4 % (42.0-54.0); Hemoglobin 14.2 g/dL (14.0-18.0); Lymphocytes Absolute Auto 1.3 10^3/uL (1.2-3.8); Lymphocytes Percent Auto 47.9 % (20.5-60.0); Mean Corpuscular Hemoglobin 27.8 pg (25.9-34.0); Mean Corpuscular Volume 86.9 fL (80.0-94.0); Mean Platelet Volume 10.4 fL (9.5-13.5); Monocytes Absolute Auto 0.4 10^3/uL (0.3-0.8); Monocytes Percent Auto 13.9 % (1.7-12.0); Neutrophils Percent Auto 36.3 % (43.0-75.0); Platelet Count 242 10^3/uL (150-450); Red Blood Count 5.11 10^6/uL (4.70-6.10); Red Cell Distribution Width 13.7 % (11.0-15.0); White Blood Count 2.7 10^3/uL (4.0-11.0)
[2024-02-12 07:56] LABS: Protein Creatinine Ratio Urine 0.17; Total Protein Urine Random 18.2 mg/dL (<=11.9)
[2024-02-12 07:59] LABS: Alanine Aminotransferase 65 U/L (16-63); Albumin Level 3.8 g/dL (3.4-5.0); Alkaline Phosphatase 130 U/L (46-116); Anion Gap 14.3; Aspartate Amino Transferase 58 U/L (15-37); BUN Creatinine Ratio 10.8; Bilirubin Direct 0.3 mg/dL (0.0-0.2); Bilirubin Total 1.8 mg/dL (0.2-1.0); Calcium 9.5 mg/dL (8.5-10.1); Carbon Dioxide 26.9 mmol/L (21.0-32.0); Chloride 105 mmol/L (98-107); Chol HDL Ratio 2.6; Cholesterol 87 mg/dL (<=200); Estimated GFR (African America >60 (>=60); Estimated GFR (Non-African Ame 58 (>=60); Gamma Glutamyl Transpeptidase 26 U/L (15-85); Glucose 102 mg/dL (74-106); HDL Cholesterol 33 mg/dL (40-60); Magnesium 1.7 mg/dL (1.8-2.4); Phosphorus 2.8 mg/dL (2.6-4.7); Potassium 3.2 mmol/L (3.5-5.1); Sodium 143 mmol/L (136-145); Triglycerides 104 mg/dL (<=150); VLDL CHOLESTEROL 20.8 mg/dL
[2024-02-15 11:08] LABS: Tacrolimus (FK506), Blood 7.8 ng/mL (2.0-20.0)
== END 2024-02-12 06:34 | disposition home or self-care (01) ==
LOC: LAB 06:35
PROVIDERS: PCP Nurse Practitioner
DX: R79.9 Abnormal finding of blood chemistry, unspecified (principal); Z94.0 Kidney transplant status; Z48.298 Encounter for aftercare following other organ transplant; D84.9 Immunodeficiency, unspecified; Z94.4 Liver transplant status; B39.9 Histoplasmosis, unspecified
CPT/HCPCS: 36415; 80048; 80061; 80189; 80197; 82042; 82247; 82248; 82570; 82977; 83735; 84075; 84100; 84156; 84450; 84460; 85025

== ENCOUNTER 2024-02-22 06:39 | Outpatient (OUT) | payer MEDICARE, MEDICAID, SELFPAY ==
--- OUTSIDE RECORDS SUMMARY | 2024-02-22 06:50 | XMS_ITS | CCD ---
Author Organization [facility] Care Team Providers Care Glass Etcher Name Role Phone Aictamekaz, Zuly Unavailable Unavailable Primary Care Provider Unavailabl e CAREY ROB Referring Unavailable KASMANI, ROB Referring Unavailable KASMANI, ROB Referring Unavailable RIST, RENA Referring Unavailable JOHARTANA S Referring Unavailable RIST, RENA Referring Unavailable RIST, RENA Referring Unavailable RIST, RENA Referring Unavailable RIST, RENA Referring Unavailable PEPE CASE Attending Unavailable PEPE CASE Admitting Unavailable AICHHOLZ, ZULY Referring Unavailable AICHHOLZ, ZULY Primary Care Unavailable Aichholz [facility], Zuly Primary Care Provider [facility] [phone] Shirin [facility],PharmD, Angel Unavailable Unavailab makayla Leigh [facility],PharmD, Te Unavailable Unavai lable Aichholz [facility] Primary Care Provider MIGUEL CARDONA Attending Unavailable MISC, DR BURCH Admitting Unavailable MISC, DR BURCH Consulting Unavailable AICHHOLZ, [employer] SCREENER OPERATOR ZULY Primary Care Unavailable MISC, DR BURCH Attending Unavailable MISC, DR BURCH Admitting Unavailable MISC, DR BURCH Consulting Unavailable AICHHOLZ, SAND SCREENER OPERATOR ZULY Primary Care Unavailable MISC, DR BURCH Attending Unavailable ARCELIA PIZARRO Consulting Unavailable KE BURNHAM Attending Unavailable KE BURNHAM Admitting Unavailable BARBARA, DR MÓNICA Munoz Consulting Unavailable AICHHOLZ, SAND SCREENER OPERATOR ZULY Primary Care Unavailable KE BURNHAM Consulting Unavailable MISC, DR BURCH Consulting Unavailable MISC, DR BURCH Attending Unavailable AICHHOLZ, SAND SCREENER OPERATOR ZULY Primary Care Unavailable MISC, DOCTOR Admitting Unavailable MISC, DR DOCTOR Consulting Unavailable MISC, DR DOCTOR Attending Unavailable AICHOL, [facility] Primary Care Unavailable MISC, DOCTOR Admitting Unavailable MISC, DR DOCTOR Consulting Unavailable AICHOL, [facility] Primary Care Unavailable MISC, DOCTOR Admitting Unavailable MISC, DR DOCTOR Attending Unavailable MELINDA, DR GEORGE Munoz Consulting Unavailable MELINDA, DR GEORGE Munoz Attending Unavailable AICHOL, [facility] Primary Care Unavailable MELINDA, DR GEORGE Munoz Admitting Unavailable NAUN ., KE Consulting Unavailable MIRANDA, LYNDSAY Consulting Unavailable MELINDA, DR GEORGE Munoz Consulting Unavailable NAUN ., KE Attending Unavailable NAUN ., KE Admitting Unavailable AICHHOLZ, [facility] Primary Care Unavailable NAUN ., KE Consulting Unavailable GIAN HERRING Consulting Unavailable AICHHOL, [facility] ZULY Consulting Unavailable [facility] Attending Unavailable AICHOL, [facility] ZULY Admitting Unavailable [facility] Primary Care Unavailable MISC, DR BURCH Consulting Unavailable MISC, DR BURCH Admitting Unavailable MISC, DOCTOR Attending Unavailable [facility], [facility] Primary Care Unavailable MISC, DR Consulting Unavailable MISC, DR DOCTOR Attending Unavailable MISC, DOCTOR Admitting Unavailable AICHHOL, [facility] Primary Care Unavailable MISC, DR BURCH Admitting Unavailable MISC, DR BURCH Consulting Unavailable MISC, DR DOCTOR Attending Unavailable AICHOL, [facility] Primary Care Unavailable MISC, DOCTOR Admitting Unavailable MISC, DR DOCTOR Consulting Unavailable [facility], [facility] Primary Care Unavailable MISC, DR DOCTOR Attending Unavailable MISC, DOCTOR Admitting Unavailable MISC, DR DOCTOR Consulting Unavailable AICHOL, [facility] Primary Care Unavailable MISC, DR DOCTOR Attending Unavailable [facility] Consulting Unavailable [facility], [facility] ZULY Attending Unavailable [facility], [facility] Z[facility]Y Admitting Unavailable [facility], [facility] Primary Care Unavailable DR MÓNICA JIMENEZ Consulting Unavailable Aicholz [facility] Primary Care Provider [phone] Milton White DOolas A Unavailable [facility] [phone] BensonEvan ayon DO Unavailable [phone] Momo Verdugo MD Primary Care Provider STEVE LATHAM Admitting Unavailable CONSULT, INFECTIOUS DISEASE [...] EVAN WHITE Referring UnavailHAKEEM Ponce Attending Unavailable REBECA OLSEN Attending Unavailable SELF, SELF Referring Unavailable AICHHOLZ, ZULY Primary Care Unavailable YEISON, STEVE S Attending Unavailable AICHHOLZ, ZULY Primary Care Unavailable YEISON, STEVE S Referring Unavailable AICHHOLZ, ZULY Primary Care Unavailable AICHHOLZ, ZULY Primary Care Unavailable AICHHOLZ, ZULY Primary Care Unavailable AICHHOLZ, ZULY Attending Unavailable AICHHOLZ, ZULY Attending Unavailable AICHHOLZ, ZULY Attending Unavailable Allergies Allergy Classification Reported Allergen(s) Allergy Type Date of Onset Reaction(s) Facility (1 source) Shellfish; 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: [SHELLFISH DERIVED] Propensity to adverse reactions (disorder) 8 [facility] Repository (20 sources) Shellfish-Derive d Products Propensity to adverse reactions to drug 9 [facility] (1 source) Shellfish Drug allergy (disorder) [facility] Repository Medications Current Medications Medication Drug [...] 1 capsule by mouth once daily b glkqdgf-K-qrjws acid (NEPHROCAPS) 1 MG capsule Take 1 [...] Oral, DAILY AT BEDTIME, First dose on [facility] 05/15/22 at 2215, Until Discontinued Start: 06-12-2020 End: 06-12-2023 take 4 capsules by mouth once daily at bedtime for pain gabapentin 100 MG capsule Take 4 capsules by mouth at bedtime. Take daily at bedtime for foot and ankle pain. 0 06/12/2020 06/12/2023 Discontinued lactulose 32490 mg powder for oral solution (19 sources) [...] 01/16/2023 Discontinued take 2 tablets by mo ut in the morning magnesium oxide (Mag-Ox) 400 MG tablet Take 2 tablets by mouth in the morning. 0 Active take [facility] daily magnesium oxide (MAG-OX) 400 MG [...] 0 Active take 2 tablets by mo ut once daily as needed midodrine 5 MG [...] Discontinued Start: 12-30-2021 take 2 tablets by [facility] once daily allopurinol 100 MG tablet Indications: Abnormal blood chemistry take 2 tablets by mouth once daily 180 tablet 3 12/30/2021 Active Start: 01-28-2021 take 2 tablets by [facility] once daily allopurinol 100 MG [...] itraconazole Fax results to: Dr. White - [phone] Transplant Neph - [phone] Each 09/10/2023 01/19/2024 Discontinued (Medication Reconciliation (suppress cancel msg)) Start: 09-10-2023 CUSTOM MEDICAT ION Labs to be obtained: 1- Tacrolimus level, trough - collect twice weekly until 09/24/23, then weekly until 10/08/23, them once every two weeks there after. 2- Itraconazole level - obtain once between 09/14-09/18. 3- Chem 6 - Obtain weekly while on itraconazole Fax results to: Dr. Cindy Moran [phone] Transplant Neph - [phone] Each 0 09/10/2023 Active Diatrizoate (1 source) Start: 05-20-2022 End: 05-20-2022 diatrizoate Meglumine (Cystografin) 30 % UR solution 80 mL diphenhydrAMINE hydrochloride 25 mg oral tablet (1 source) Histamine-1 Receptor Antagonist Start: 09-03-2023 End: 09-11-2023 take 25 mg by mouth every twenty-four hours 25 mg, Oral, EVERY 24 HOURS, First dose on [facility] 09/03/23 at 1600, Until Discontinued Give [...] over 4 Hours, ONCE, 1 dose, On 09/09/23 at 0800 Start: 09-07-2023 End: 09-07-2023 4 [...] (ZOFRAN) injection 4 mg polyethylene glycol 3350 29787 mg powder for oral solution (20 sources) [...] Oral, ONCE, 1 dose, On Thu09/09/23 at 1115 Swallow tablets whole; do not [...] rate of 5mg/min. Maximum of 40mg/day. sennosides, mcc 8.6 mg oral tablet (1 source) Start: [...] needed. Start: 08-20-2022 take 1 capsule by [facility] every twelve hours Tacrolimus (PROGRAF) [...] Start: 03-14-2022 take 1 capsule by [facility] every twelve hours tacrolimus (PROGRAF) 0.5 MG capsule Indications: -donor kidney transplant recipient , Liver transplant recipient Take 2 capsules by mouth every 12 hours. 360 capsule 1 03/14/2022 Active Start: 01-11-2021 take 1 capsule by [facility] twice daily tacrolimus (generic) 0.5 [...] Coronary arteriosclerosis; 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: [Atherosclerotic heart disease of [place] coronary artery without angina pectoris] Onset: 3 [...] other organ transplant; Translations: [ENC AFTERCARE FLW OT ORGN TRANSPL] Onset: 3 Chronic Other aftercare (1 source) Follow-up status; Translations: [Encounter for follow-up examination after completed treatment for conditions other than malignant neoplasm] Episodic Other aftercare (2 sources) Taking high risk medication; Translations: [Other [facility] (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] Episodic Other and ill-defined [...] care facility (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; Translations: [OTH UNIVERSAL GRINDER TOOL 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 THERAPY] Onset: 07-06-2022 Episodic 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; Translations: [UNIVERSAL GRINDER TOOL CURRENT USE OF ASPIRIN] Onset: 06-20-2022 Episodic [...] (Bld) [Volume fraction] 37.0 % Low 39.6-48.8 [facility] Comment on above: Performed By: #### H EMOGC ####[facility] (DEFAULT)[address] [facility] [place] [address] Hemoglobin (Bld) [Mass/Vol] 12.0 g/dL Low 13.4-16.8 [facility] Comment on above: Performed By: #### H EMOGC ####[facility] (DEFAULT)[address] [facility] [place] [address] MCV (RBC) [Entitic vol] 88.1 fL Normal 79.0-94.5 [facility] Comment on above: Performed By: #### H EMOGC ####[facility] (DEFAULT)[address] [facility] [place] [address] Mean Cell Hgb 28.6 pg Normal 26.1-33.3 [facility] Comment on above: Performed By: #### H EMOGC ####[facility] (DEFAULT)[address] [facility] [place] [address] Mean Cell Hgb Conc 32.4 g/dL Normal 31.9-36.5 [facility] Comment on above: Performed By: #### H EMOGC ####[facility] (DEFAULT)[address] [facility] [place] [address] Platelet mean volume (Bld) [Entitic vol] 10.4 fL Normal 8.7-12.3 [facility] Comment on above: Performed By: #### H EMOGC ####[facility] (DEFAULT)[address] [facility] [place] [address] Platelets (Bld) [#/Vol] 170 10*3/uL Normal 146-337 [facility] Comment on above: Performed By: #### H EMOGC ####[facility] (DEFAULT)[address] [facility] [place] [address] RBC (Bld) [#/Vol] 4.20 10*6/uL Low 4.38-5.83 [facility] Comment on above: Performed By: #### [facility] ####[facility] (DEFAULT)[address] [facility] [place] [address] RBC Distribution 14.2 % Normal 10.9-14.3 [facility] Comment on above: Performed By: #### [facility] ####[facility] (DEFAULT)[address] [place] [address] WBC (Bld) [#/Vol] 3.70 10*3/uL Low 3.73-10.10 [facility] Comment on above: Performed By: #### [facility] ####[facility] (DEFAULT)[address] [place] [address] Erythrocyte distribution width (RBC) [Ratio] 14.2 % 10.9 - 14.3 % [facility] Hematocrit (Bld) [Volume fraction] 37.0 % Low 39.6 - 48.8 % [facility] Hemoglobin (Bld) [Mass/Vol] 12.0 g/dL Low 13.4 - 16.8 g/dL [facility] Interpretation and review of laboratory results Abnormal [facility] MCH (RBC) [Entitic mass] 28.6 pg 26.1 - 33.3 pg [facility] MCHC (RBC) [Mass/Vol] 32.4 g/dL 31.9 - 36.5 g/dL [facility] MCV (RBC) [Entitic vol] 88.1 fL 79.0 - 94.5 fL [facility] Platelet mean volume (Bld) [Entitic vol] 10.4 fL 8.7 - 12.3 fL [facility] Platelets (Bld) [#/Vol] 170 10*3/uL 146 - 337 K/uL [facility] RBC (Bld) [#/Vol] 4.20 10*6/uL Low [facility] WBC (Bld) [#/Vol] 3.70 10*3/uL Low 3.73 - 10. 10 K/uL [facility] CHEM 7 (LYTES,BUN,CREA,GLUC) on 01-23-2024 Anion gap [Moles/Vol] 14 mmol/L Normal 7-17 [facility] Comment on above: Performed By: #### TJ RAMÍREZ7, HFP ####[facility] (DEFAULT)[address] [place] [address] Chloride [Moles/Vol] 105 mmol/L Normal 98-108 [facility] Comment on above: Performed By: #### M TJ BLOOM7, HFP ####[facility] (DEFAULT)[address] [facility] [place] [address] CO2 [Moles/Vol] 25 mmol/L Normal 21-31 [facility] Comment on above: Performed By: #### NATHANIEL RAMÍREZ, HFP ####[facility] (DEFAULT)[address] [facility] [place] [address] Creatinine [Mass/Vol] 1.32 mg/dL High 0.70-1.30 [facility] Comment on above: Performed By: #### NATHNAIEL RAMÍREZ, HFP ####[facility] (DEFAULT)[address] [facility] [place] [address] GFR/1.73 sq M.predicted among non-blacks MDRD (S/P/Bld) [Vol rate/Area] 65 mL/min/{1.73_m2} Normal >=60 [facility] Comment on above: Result Comment: Repo rted eGFR is based on the CKD-EPI 2020 equation using creatinine, age, and sex. Performed By: #### NATHANIEL RAMÍREZ, HFP ####[facility] (DEFAULT)[address] [facility] [place] [address] Glucose [Mass/Vol] 94 mg/dL Normal 70-99 [facility] Comment on above: Performed By: #### Rod BLOOM CHM7, HFP ####[facility] (DEFAULT)[address] [place] [address] Osmolality [Osmolality] 296 mosm/kg Normal 278-305 [facility] Comment on above: Performed By: #### NATHANIEL RAMÍREZ, HFP ####[facility] (DEFAULT)[address] [place] [address] Potassium [Moles/Vol] 3.8 mmol/L Normal 3.5-5.0 [facility] Comment on above: Performed By: #### NATHANIEL RAMÍREZ, HFP ####[facility] (DEFAULT)[address] [place] [address] Sodium [Moles/Vol] 140 mmol/L Normal 135-145 [facility] Comment on above: Performed By: #### NATHANIEL RAMÍREZ, HFP ####[facility] (DEFAULT)[address] [facility] [place] [address] Urea nitrogen [Mass/Vol] 23 mg/dL Normal 7-25 [facility] Comment on above: Performed By: #### NATHANIEL RAMÍREZ, HFP ####[facility] (DEFAULT)[address] [facility] [place] [address] Urea nitrogen/Creatinine [Mass ratio] 17 mg/mg Normal [facility] Comment on above: Performed By: #### NATHANIEL RAMÍREZ, HFP ####[facility] (DEFAULT)[address] [facility] [place] [address] Anion gap [Moles/Vol] 14 mmol/L 7 - 17 mmol/L [facility] Chloride [Moles/Vol] 105 mmol/L 98 - 10 8 mmol/L [facility] CO2 [Moles/Vol] 25 mmol/L 21 - 31 mmol/L [facility] Creatinine [Mass/Vol] 1.32 mg/dL High 0.70 - 1.30 mg/dL [facility] eGFR, CKD-EPI, Male 65 - PINF [facility] Comment on above: Reported eGFR is bas ed on the CKD-EPI 2021 equation using creatinine, age, and sex. Glucose [Mass/Vol] 94 mg/dL 70 - 99 mg/dL [facility] Osmolality Calc [Osmolality] 296 [facility] Potassium [Moles/Vol] 3.8 mmol/L 3.5 - 5.0 mmol/L [facility] Sodium [Moles/Vol] 140 mmol/L 135 - 145 mmol/L [facility] Urea nitrogen [Mass/Vol] 23 mg/dL 7 - 25 mg/dL [facility] Urea nitrogen/Creatinine [Mass ratio] 17 mg/mg [facility] GLUCOSE POCon 01-23-2024 Glucose [Mass/Vol] 88 mg/dL 70 - 99 mg/dL [facility] POC Sample Type CAPBL [facility] Test performed at ad dress of the patient encounter. [facility] Glucose [Mass/Vol] 191 mg/dL High 70 - 99 mg/dL [facility] Interpretation and review of laboratory results Abnormal [facility] POC Sample Type CAPBL [facility] Test performed at ad dress of the patient encounter. [facility] HEPATIC FUNCTION PANELon Albumin [Mass/Vol] 3.9 g/dL Normal 3.5-5.0 [facility] Comment on above: Performed By: #### NATHANIEL RAMÍREZ, HFP ####[facility] (DEFAULT)[address] [place] [address] ALP [Catalytic activity/Vol] 83 U/L Normal 32-126 [facility] Comment on above: Performed By: #### NATHANIEL RAMÍREZ, HFP ####[facility] (DEFAULT)[address] [place] [address] ALT [Catalytic activity/Vol] 9 U/L Low 10-52 [facility] Comment on above: Performed By: #### NATHANIEL RAMÍREZ, HFP ####[facility] (DEFAULT)[address] [place] [address] AST [Catalytic activity/Vol] 17 U/L Normal 10-39 [facility] Comment on above: Performed By: #### NATHANIEL RAMÍREZ, HFP ####[facility] (DEFAULT)[address] [place] [address] Bilirubin [Mass/Vol] 1.6 mg/dL High <1.5 [facility] Comment on above: Performed By: #### NATHANIEL RAMÍREZ, HFP ####[facility] (DEFAULT)[address] [place] [address] Bilirubin.indirect [Mass/Vol] 0.4 mg/dL High <0.3 [facility] Comment on above: Performed By: #### NATHANIEL RAMÍREZ, HFP ####[facility] (DEFAULT)[address] [facility] [place] [address] Protein [Mass/Vol] 6.6 g/dL Normal 6.4-8.3 [facility] Comment on above: Performed By: #### NATHANIEL RAMÍREZ, HFP ####[facility] (DEFAULT)[address] [place] [address] Albumin [Mass/Vol] 3.9 g/dL 3.5 - 5.0 g/dL [facility] ALP [Catalytic activity/Vol] 83 U/L 32 - 126 U/L [facility] ALT [Catalytic activity/Vol] 9 U/L Low 10 - 52 U/L [facility] AST [Catalytic activity/Vol] 17 U/L 10 - 39 U/L [facility] Bilirubin [Mass/Vol] 1.6 mg/dL High NINF - 1.5 mg/dL [facility] Bilirubin.direct [Mass/Vol] 0.4 mg/dL High NINF - 0.3 mg/dL [facility] Protein [Mass/Vol] 6.6 g/dL 6.4 - 8.3 g/dL [facility] ITRACONAZOLE LEVELon 024 Hydroxyitraconazole [Mass/Vol] 7.6 mcg/mL [facility] Comment on above: REFERENCE VALUE No therapeutic range established; activity and serum concentration are similar to parent drug. ADDITIONAL INFORMATION This test was developed and its performance characteristics determined by [facility] in a manner consistent with CLIA requirements. This test has not been cleared or approved by the U.S. Food and Drug Administration. Test Performed by: [facility] - [address] [address] [place] Worker: Rosenod Bose M.D. Ph.D.; CLIA# [id number] Itraconazole [Mass/Vol] 6.0 mcg/mL [facility] Comment on above: REFERENCE VALUE >0.5 (localized infection), >1.0 (systemic infection) [facility] MAGNESIUMon 01-23-2024 Magnesium [Mass/Vol] 1.8 mg/dL Normal 1.6-2.6 [facility] Comment on above: Performed By: #### M [facility] ####[facility] (DEFAULT)[address] [place] [address] Interpretation and review of laboratory results Normal [facility] Magnesium [Mass/Vol] 1.8 mg/dL 1.6 - 2 .6 mg/dL [facility] No Panel Informationon 01-23 Interpretation and review of laboratory results Abnormal [facility] TACROLIMUS LEVEL, TROUGH (UT E DRUG LEVEL)on 01-23-2024 Interpretation and review of laboratory results Normal [facility] Tacrolimus (Bld) [Mass/Vol] 7.0 ng/mL Bone Marrow Transplant: 4.0-12.0, Therapeutic: 5.0-15.0 [facility] Method performed is a chemiluminescent microparticle immunoasssay on the [employer] Mapping i2000. The range is based on experience at [facility] and users should be aware that target concentrations vary widely depending on concomitant therapy, time post-transplant, and desired degree of immunosuppression. [facility] Tacrolimus, Trough 7.0 ng/mL Normal Bone Susana ow Transplant: 4.0-12.0, Therapeutic: 5.0-15.0 [facility] Comment on above: Order Comment: Pleas e draw at specified interval PRIOR to dose. Do not hold dose to wait for level. Specimens batched twice per day, (M-F) and once per day weekendsMethod performed is a chemiluminescent microparticle immunoasssay on the [employer] Mapping i2000.The range is based on experience at [facility] and users should be aware that target concentrations vary widely depending on concomitant therapy, time post-transplant, and desired degree of immunosuppression. Performed By: #### T ACRO ####[facility] (DEFAULT)[address] [place] [address] CARDIAC RHYTHM (SCANNED)on 0 01-22-2024 [facility] CBC,PLATELETSon 01-22-2024 Hematocrit (Bld) [Volume fraction] 41.5 % Normal 39.6-48.8 [facility] Comment on above: Performed By: #### [facility] ####[facility] (DEFAULT)[address] [place] [address] Hemoglobin (Bld) [Mass/Vol] 13.3 g/dL Low 13.4-16.8 [facility] Comment on above: Performed By: #### [facility] ####[facility] (DEFAULT)[address] [place] [address] MCV (RBC) [Entitic vol] 86.8 fL Normal 79.0-94.5 [facility] Comment on above: Performed By: #### [facility] ####[facility] (DEFAULT)[address] [place] [address] Mean Cell Hgb 27.8 pg Normal 26.1-33.3 [facility] Comment on above: Performed By: #### H EMOGC ####[facility] (DEFAULT)[address] [place] [address] Mean Cell Hgb Conc 32.0 g/dL Normal 31.9-36.5 [facility] Comment on above: Performed By: #### H EMOGC ####[facility] (DEFAULT)[address] [place] [address] Platelet mean volume (Bld) [Entitic vol] 10.5 fL Normal 8.7-12.3 [facility] Comment on above: Performed By: #### H EMO ####[facility] (DEFAULT)[address] [place] [address] Platelets (Bld) [#/Vol] 186 10*3/uL Normal 146-337 [facility] Comment on above: Performed By: #### H EMOGC ####[facility] (DEFAULT)[address] [place] [address] RBC (Bld) [#/Vol] 4.78 10*6/uL Normal 4.38-5.83 [facility] Comment on above: Performed By: #### H EMOGC ####[facility] (DEFAULT)[address] [place] [address] RBC Distribution 14.1 % Normal 10.9-14.3 [facility] Comment on above: Performed By: #### H EMOGC ####[facility] (DEFAULT)[address] [place] [address] WBC (Bld) [#/Vol] 3.74 10*3/uL Normal 3.73-10.10 [facility] Comment on above: Performed By: #### H EMOGC ####[facility] (DEFAULT)[address] [place] [address] Erythrocyte distribution width (RBC) [Ratio] 14.1 % 10.9 - 14.3 % [facility] Hematocrit (Bld) [Volume fraction] 41.5 % 39.6 - 48.8 % [facility] Hemoglobin (Bld) [Mass/Vol] 13.3 g/dL Low 13.4 - 16.8 g/dL [facility] Interpretation and review of laboratory results Abnormal [facility] MCH (RBC) [Entitic mass] 27.8 pg 26.1 - 33.3 pg [facility] MCHC (RBC) [Mass/Vol] 32.0 g/dL 31.9 - 36.5 g/dL [facility] MCV (RBC) [Entitic vol] 86.8 fL 79.0 - 94.5 fL [facility] Platelet mean volume (Bld) [Entitic vol] 10.5 fL 8.7 - 12.3 fL [facility] Platelets (Bld) [#/Vol] 186 10*3/uL 146 - 337 K/uL [facility] RBC (Bld) [#/Vol] 4.78 10*6/uL [facility] WBC (Bld) [#/Vol] 3.74 10*3/uL 3.73 - 10. 10 K/uL [facility] CHEM 7 (LYTES,BUN,CREA,GLUC) on 01-22-2024 Anion gap [Moles/Vol] 13 mmol/L Normal 7-17 [facility] Comment on above: Performed By: #### TJ RAMÍREZ7 ####[facility] (DEFAULT)[address] [place] [address] Chloride [Moles/Vol] 109 mmol/L High 98-108 [facility] Comment on above: Performed By: #### TJ RAMÍREZ7 ####[facility] (DEFAULT)[address] [place] [address] CO2 [Moles/Vol] 23 mmol/L Normal 21-31 [facility] Comment on above: Performed By: #### NATHANIEL RAMÍREZ ####[facility] (DEFAULT)[address] [facility] [place] [address] Creatinine [Mass/Vol] 1.10 mg/dL Normal 0.70-1.30 [facility] Comment on above: Performed By: #### TJ RAMÍREZ7 ####[facility] (DEFAULT)[address] [place] [address] GFR/1.73 sq M.predicted among non-blacks MDRD (S/P/Bld) [Vol rate/Area] 81 mL/min/{1.73_m2} Normal >=60 [facility] Comment on above: Result Comment: Repo rted eGFR is based on the CKD-EPI 2020 equation using creatinine, age, and sex. Performed By: #### NATHANIEL RAMÍREZ ####[facility] (DEFAULT)[address] [place] [address] Glucose [Mass/Vol] 84 mg/dL Normal 70-99 [facility] Comment on above: Performed By: #### NATHANIEL RAMÍREZ ####[facility] (DEFAULT)[address] [place] [address], [place] [address] Osmolality [Osmolality] 295 mosm/kg Normal 278-305 [facility] Comment on above: Performed By: #### NATHANIEL RAMÍREZ ####[facility] (DEFAULT)[address] [place] [address] Potassium [Moles/Vol] 4.0 mmol/L Normal 3.5-5.0 [facility] Comment on above: Performed By: #### NATHANIEL RAMÍREZ ####[facility] (DEFAULT)[address] [facility] [place] [address] Sodium [Moles/Vol] 141 mmol/L Normal 135-145 [facility] Comment on above: Performed By: #### TJ RAMÍREZ7 ####[facility] (DEFAULT)[address] [facility] [place] [address] Urea nitrogen [Mass/Vol] 16 mg/dL Normal 7-25 [facility] Comment on above: Performed By: #### M NATHANIEL BLOOM ####[facility] (DEFAULT)[address] [facility] [place] [address] Urea nitrogen/Creatinine [Mass ratio] 15 mg/mg Normal [facility] Comment on above: Performed By: #### M TJ BLOOM7 ####[facility] (DEFAULT)[address] [place] [address] Anion gap [Moles/Vol] 13 mmol/L 7 - 17 mmol/L [facility] Chloride [Moles/Vol] 109 mmol/L High 98 - 10 8 mmol/L [facility] CO2 [Moles/Vol] 23 mmol/L 21 - 31 mmol/L [facility] Creatinine [Mass/Vol] 1.10 mg/dL 0.70 - 1.30 mg/dL [facility] eGFR, CKD-EPI, Male 81 - PINF [facility] Comment on above: Reported eGFR is bas ed on the CKD-EPI 2020 equation using creatinine, age, and sex. Glucose [Mass/Vol] 84 mg/dL 70 - 99 mg/dL [facility] Interpretation and review of laboratory results Abnormal [facility] Osmolality Calc [Osmolality] 295 [facility] Potassium [Moles/Vol] 4.0 mmol/L 3.5 - 5.0 mmol/L [facility] Sodium [Moles/Vol] 141 mmol/L 135 - 145 mmol/L [facility] Urea nitrogen [Mass/Vol] 16 mg/dL 7 - 25 mg/dL [facility] Urea nitrogen/Creatinine [Mass ratio] 15 mg/mg [facility] MAGNESIUMon 01-22-2024 Magnesium [Mass/Vol] 2.0 mg/dL Normal 1.6-2.6 [facility] Comment on above: Performed By: #### M TJ BLOOM7 ####[facility] (DEFAULT)[address] [place] [address], [place] [address] Interpretation and review of laboratory results Normal [facility] Magnesium [Mass/Vol] 2.0 mg/dL 1.6 - 2 .6 mg/dL [facility] No Panel Informationon 01-22 [facility] PT,INR,PTTon 01-22-2024 aPTT Coag (Bld) [Time] 29.2 s Normal 24.0-34.3 [facility] Comment on above: Performed By: #### P TPTT ####[facility] (DEFAULT)[address] [place] [address], [place] [address] INR Coag (PPP) [Relative time] 1.1 {INR} Normal 0.9-1.1 [facility] Comment on above: Performed By: #### P TPTT ####[facility] (DEFAULT)[address] [place] [address], [place] [address] PT Coag (PPP) [Time] 14.3 s High 11.9-14.2 [facility] Comment on above: Performed By: #### P TPTT ####[facility] (DEFAULT)[address] [place] [address], [place] [address] aPTT Coag (PPP) [Time] 29.2 s [facility] INR Coag (Bld) [Relative time] 1.1 {INR} 0.9 - 1.1 [facility] Interpretation and review of laboratory results Abnormal [facility] PT Coag (PPP) [Time] 14.3 s High [facility] TACROLIMUS LEVEL, TROUGH (UT E DRUG LEVEL)Ordered By: Sheree Jensen on 01-22-2024 Interpretation and review of laboratory results Normal [facility] Tacrolimus (Bld) [Mass/Vol] 7.9 ng/mL Bone Marrow Transplant: 4.0-12.0, Therapeutic: 5.0-15.0 [facility] Method performed is a chemiluminescent microparticle immunoasssay on the [employer] Mapping i2000. The range is based on experience at [facility] and users should be aware that target concentrations vary widely depending on concomitant therapy, time post-transplant, and desired degree of immunosuppression. [facility] TACROLIMUS LEVEL, TROUGH (UT E DRUG LEVEL)on 01-22-2024 Tacrolimus, Trough 7.9 ng/mL Normal Bone Susana ow Transplant: 4.0-12.0, Therapeutic: 5.0-15.0 [facility] Comment on above: Order Comment: Pleas e draw at specified interval PRIOR to dose. Do not hold dose to wait for level. Specimens batched twice per day, (M-) and once per day weekendsMethod performed is a chemiluminescent microparticle immunoasssay on the [employer] Mapping i2000.The range is based on experience at [facility] and users should be aware that target concentrations vary widely depending on concomitant therapy, time post-transplant, and desired degree of immunosuppression. Performed By: #### T ACRO ####[facility] (DEFAULT)[address] [place] [address] TYPE AND SCREENon 01-22-2024 ABO/RH(D) TYPE Positive [facility] ABO/RH(D) TYPE Positive Normal [facility] Comment on above: Performed By: #### X M ####[facility] (DEFAULT)[address] [place] [address] [place] Unspecified body regionOr dered By: Unassigned Pacs on 01-22-2024 [facility] Work Phone: [place] Unspecified body regionon 01-22-2024 Radiology Study observation (narrative) [facility] CBC,PLATELETSon 01-21-2024 Hematocrit (Bld) [Volume fraction] 39.4 % Low 39.6-48.8 [facility] Comment on above: Performed By: #### H EMOGC ####[facility] (DEFAULT)[address] [place] [address] Hemoglobin (Bld) [Mass/Vol] 12.7 g/dL Low 13.4-16.8 [facility] Comment on above: Performed By: #### H EMOGC ####[facility] (DEFAULT)[address] [facility] [place] [address] MCV (RBC) [Entitic vol] 87.0 fL Normal 79.0-94.5 [facility] Comment on above: Performed By: #### H EMOGC ####[facility] (DEFAULT)[address] [facility] [place] [address] Mean Cell Hgb 28.0 pg Normal 26.1-33.3 [facility] Comment on above: Performed By: #### H EMOGC ####[facility] (DEFAULT)[address] [facility] [place] [address] Mean Cell Hgb Conc 32.2 g/dL Normal 31.9-36.5 [facility] Comment on above: Performed By: #### H EMOGC ####[facility] (DEFAULT)[address] [facility] [place] [address] Platelet mean volume (Bld) [Entitic vol] 10.2 fL Normal 8.7-12.3 [facility] Comment on above: Performed By: #### H EMOGC ####[facility] (DEFAULT)[address] [facility] [place] [address] Platelets (Bld) [#/Vol] 157 10*3/uL Normal 146-337 [facility] Comment on above: Performed By: #### H EMOGC ####[facility] (DEFAULT)[address] [facility] [place] [address] RBC (Bld) [#/Vol] 4.53 10*6/uL Normal 4.38-5.83 [facility] Comment on above: Performed By: #### H EMOGC ####[facility] (DEFAULT)[address] [facility] [place] [address] RBC Distribution 14.0 % Normal 10.9-14.3 [facility] Comment on above: Performed By: #### [facility] ####[facility] (DEFAULT)[address] [place] [address] WBC (Bld) [#/Vol] 3.42 10*3/uL Low 3.73-10.10 [facility] Comment on above: Performed By: #### [facility] ####[facility] (DEFAULT)[address] [place] [address] Erythrocyte distribution width (RBC) [Ratio] 14.0 % 10.9 - 14.3 % [facility] Hematocrit (Bld) [Volume fraction] 39.4 % Low 39.6 - 48.8 % [facility] Hemoglobin (Bld) [Mass/Vol] 12.7 g/dL Low 13.4 - 16.8 g/dL [facility] Interpretation and review of laboratory results Abnormal [facility] MCH (RBC) [Entitic mass] 28.0 pg 26.1 - 33.3 pg [facility] MCHC (RBC) [Mass/Vol] 32.2 g/dL 31.9 - 36.5 g/dL [facility] MCV (RBC) [Entitic vol] 87.0 fL 79.0 - 94.5 fL [facility] Platelet mean volume (Bld) [Entitic vol] 10.2 fL 8.7 - 12.3 fL [facility] Platelets (Bld) [#/Vol] 157 10*3/uL 146 - 337 K/uL [facility] RBC (Bld) [#/Vol] 4.53 10*6/uL [facility] WBC (Bld) [#/Vol] 3.42 10*3/uL Low 3.73 - 10. 10 K/uL [facility] CHEM 7 (LYTES,BUN,CREA,GLUC) on 01-21-2024 Anion gap [Moles/Vol] 12 mmol/L Normal 7-17 [facility] Comment on above: Performed By: #### TJ RAMÍREZ7 ####[facility] (DEFAULT)[address] [place] [address] Chloride [Moles/Vol] 107 mmol/L Normal 98-108 [facility] Comment on above: Performed By: #### TJ RAMÍREZ7 ####[facility] (DEFAULT)[address] [place] [address] CO2 [Moles/Vol] 26 mmol/L Normal 21-31 [facility] Comment on above: Performed By: #### TJ RAMÍREZ7 ####[facility] (DEFAULT)[address] [facility] [place] [address] Creatinine [Mass/Vol] 1.11 mg/dL Normal 0.70-1.30 [facility] Comment on above: Performed By: #### TJ RAMÍREZ7 ####[facility] (DEFAULT)[address] [facility] [place] [address] GFR/1.73 sq M.predicted among non-blacks MDRD (S/P/Bld) [Vol rate/Area] 80 mL/min/{1.73_m2} Normal >=60 [facility] Comment on above: Result Comment: Repo rted eGFR is based on the CKD-EPI 2020 equation using creatinine, age, and sex. Performed By: #### TJ RAMÍREZ7 ####[facility] (DEFAULT)[address] [facility] [place] [address] Glucose [Mass/Vol] 93 mg/dL Normal 70-99 [facility] Comment on above: Performed By: #### TJ RAMÍREZ7 ####[facility] (DEFAULT)[address] [facility] [place] [address] Osmolality [Osmolality] 295 mosm/kg Normal 278-305 [facility] Comment on above: Performed By: #### TJ RAMÍREZ7 ####[facility] (DEFAULT)[address] [place] [address] Potassium [Moles/Vol] 3.9 mmol/L Normal 3.5-5.0 [facility] Comment on above: Performed By: #### Rod BLOOM CHM7 ####[facility] (DEFAULT)[address] [place] [address] Sodium [Moles/Vol] 141 mmol/L Normal 135-145 [facility] Comment on above: Performed By: #### Rod BLOOM CHM7 ####[facility] (DEFAULT)[address] [facility] [place] [address] Urea nitrogen [Mass/Vol] 15 mg/dL Normal 7-25 [facility] Comment on above: Performed By: #### Rod BLOOM CHM7 ####[facility] (DEFAULT)[address] [facility] [place] [address] Urea nitrogen/Creatinine [Mass ratio] 14 mg/mg Normal [facility] Comment on above: Performed By: #### Rod BLOOM CHM7 ####[facility] (DEFAULT)[address] [facility] [place] [address] Anion gap [Moles/Vol] 12 mmol/L 7 - 17 mmol/L [facility] Chloride [Moles/Vol] 107 mmol/L 98 - 10 8 mmol/L [facility] CO2 [Moles/Vol] 26 mmol/L 21 - 31 mmol/L [facility] Creatinine [Mass/Vol] 1.11 mg/dL 0.70 - 1.30 mg/dL [facility] eGFR, CKD-EPI, Male 80 - PINF [facility] Comment on above: Reported eGFR is bas ed on the CKD-EPI 2020 equation using creatinine, age, and sex. Glucose [Mass/Vol] 93 mg/dL 70 - 99 mg/dL [facility] Osmolality Calc [Osmolality] 295 [facility] Potassium [Moles/Vol] 3.9 mmol/L 3.5 - 5.0 mmol/L [facility] Sodium [Moles/Vol] 141 mmol/L 135 - 145 mmol/L [facility] Urea nitrogen [Mass/Vol] 15 mg/dL 7 - 25 mg/dL [facility] Urea nitrogen/Creatinine [Mass ratio] 14 mg/mg [facility] Cardiac catheterization stud yOrdered By: Kelvin Donohue on 01-21-2024 Body surface area Derived from formula 2.08 m2 [facility] Work Phone: [facility] Work Phone: Cardiac catheterization stud [...] with fistula occlusion Kelvin Donohue MD, MPH [employer] Supervisor of Internal Medicine. Section of Advanced Heart Failure and Transplantation Division of Cardiovascular Diseases [facility] [email or web address] INVASIVE CARDIOVASCULAR PROC EDUREon 01-21-2024 INVASIVE CARDIOVASCULAR PROCEDURE Normal [facility] MAGNESIUMon 01-21-2024 Magnesium [Mass/Vol] 1.5 mg/dL Low 1.6-2.6 [facility] Comment on above: Performed By: #### M NATHANIEL BLOOM ####[facility] (DEFAULT)[address] [place] [address] Interpretation and review of laboratory results Abnormal [facility] Magnesium [Mass/Vol] 1.5 mg/dL Low 1.6 - 2 .6 mg/dL [facility] No Panel Informationon 01-21 [facility] TACROLIMUS LEVEL, TROUGH (UT E DRUG LEVEL)on 01-21-2024 Interpretation and review of laboratory results Normal [facility] Tacrolimus (Bld) [Mass/Vol] 7.2 ng/mL Bone Marrow Transplant: 4.0-12.0, Therapeutic: 5.0-15.0 [facility] Method performed is a chemiluminescent microparticle immunoasssay on the [employer] Mapping i2000. The range is based on experience at [facility] and users should be aware that target concentrations vary widely depending on concomitant therapy, time post-transplant, and desired degree of immunosuppression. [facility] Tacrolimus, Trough 7.2 ng/mL Normal Bone Susana ow Transplant: 4.0-12.0, Therapeutic: 5.0-15.0 [facility] Comment on above: Order Comment: Pleas e draw at specified interval PRIOR to dose. Do not hold dose to wait for level. Specimens batched twice per day, (M-F) and once per day weekendsMethod performed is a chemiluminescent microparticle immunoasssay on the [employer] M[employer] i2000.The range is based on experience at [facility] and users should be aware that target concentrations vary widely depending on concomitant therapy, time post-transplant, and desired degree of immunosuppression. Performed By: #### T ACRO ####[facility] (DEFAULT)[address] [place] [address] CBC,PLATELETSon 01-20-2024 Hematocrit (Bld) [Volume fraction] 38.9 % Low 39.6-48.8 [facility] Comment on above: Performed By: #### [facility] ####[facility] (DEFAULT)[address] [place] [address] Hemoglobin (Bld) [Mass/Vol] 12.5 g/dL Low 13.4-16.8 [facility] Comment on above: Performed By: #### [facility] ####[facility] (DEFAULT)[address] [place] [address] MCV (RBC) [Entitic vol] 87.2 fL Normal 79.0-94.5 [facility] Comment on above: Performed By: #### H EMOGC ####[facility] (DEFAULT)[address] [place] [address] Mean Cell Hgb 28.0 pg Normal 26.1-33.3 [facility] Comment on above: Performed By: #### H EMOGC ####[facility] (DEFAULT)[address] [facility] [place] [address] Mean Cell Hgb Conc 32.1 g/dL Normal 31.9-36.5 [facility] Comment on above: Performed By: #### H EMOGC ####[facility] (DEFAULT)[address] [facility] [place] [address] Platelet mean volume (Bld) [Entitic vol] 10.2 fL Normal 8.7-12.3 [facility] Comment on above: Performed By: #### H EMOGC ####[facility] (DEFAULT)[address] [place] [address] Platelets (Bld) [#/Vol] 166 10*3/uL Normal 146-337 [facility] Comment on above: Performed By: #### H EMOGC ####[facility] (DEFAULT)[address] [facility] [place] [address] RBC (Bld) [#/Vol] 4.46 10*6/uL Normal 4.38-5.83 [facility] Comment on above: Performed By: #### H EMOGC ####[facility] (DEFAULT)[address] [facility] [place] [address] RBC Distribution 13.8 % Normal 10.9-14.3 [facility] Comment on above: Performed By: #### H EMOGC ####[facility] (DEFAULT)[address] [place] [address] WBC (Bld) [#/Vol] 3.79 10*3/uL Normal 3.73-10.10 [facility] Comment on above: Performed By: #### [facility] ####[facility] (DEFAULT)[address] [place] [address] Erythrocyte distribution width (RBC) [Ratio] 13.8 % 10.9 - 14.3 % [facility] Hematocrit (Bld) [Volume fraction] 38.9 % Low 39.6 - 48.8 % [facility] Hemoglobin (Bld) [Mass/Vol] 12.5 g/dL Low 13.4 - 16.8 g/dL [facility] Interpretation and review of laboratory results Abnormal [facility] MCH (RBC) [Entitic mass] 28.0 pg 26.1 - 33.3 pg [facility] MCHC (RBC) [Mass/Vol] 32.1 g/dL 31.9 - 36.5 g/dL [facility] MCV (RBC) [Entitic vol] 87.2 fL 79.0 - 94.5 fL [facility] Platelet mean volume (Bld) [Entitic vol] 10.2 fL 8.7 - 12.3 fL [facility] Platelets (Bld) [#/Vol] 166 10*3/uL 146 - 337 K/uL [facility] RBC (Bld) [#/Vol] 4.46 10*6/uL [facility] WBC (Bld) [#/Vol] 3.79 10*3/uL 3.73 - 10. 10 K/uL [facility] CHEM 7 (LYTES,BUN,CREA,GLUC) on 01-20-2024 Anion gap [Moles/Vol] 12 mmol/L Normal 7-17 [facility] Comment on above: Performed By: #### M GO, HFP, CHM7 ####[facility] (DEFAULT)[address] [place] [address] Chloride [Moles/Vol] 105 mmol/L Normal 98-108 [facility] Comment on above: Performed By: #### TAVO RAMÍREZ CHM7 ####[facility] (DEFAULT)[address] [place] [address] CO2 [Moles/Vol] 28 mmol/L Normal 21-31 [facility] Comment on above: Performed By: #### TAVO RAMÍREZ CHM7 ####[facility] (DEFAULT)[address] [facility] [place] [address] Creatinine [Mass/Vol] 1.12 mg/dL Normal 0.70-1.30 [facility] Comment on above: Performed By: #### TAVO RAMÍREZ CHM7 ####[facility] (DEFAULT)[address] [facility] [place] [address] GFR/1.73 sq M.predicted among non-blacks MDRD (S/P/Bld) [Vol rate/Area] 79 mL/min/{1.73_m2} Normal >=60 [facility] Comment on above: Result Comment: Repo rted eGFR is based on the CKD-EPI 2020 equation using creatinine, age, and sex. Performed By: #### TAVO RAMÍREZ, CHM7 ####[facility] (DEFAULT)[address] [facility] [place] [address] Glucose [Mass/Vol] 88 mg/dL Normal 70-99 [facility] Comment on above: Performed By: #### TAVO RAMÍREZ, CHM7 ####[facility] (DEFAULT)[address] [place], [place] [address], [place] [address] Osmolality [Osmolality] 294 mosm/kg Normal 278-305 [facility] Comment on above: Performed By: #### TAVO RAMÍREZ, CHM7 ####[facility] (DEFAULT)[address] [place] [address] Potassium [Moles/Vol] 3.8 mmol/L Normal 3.5-5.0 [facility] Comment on above: Performed By: #### M TAVO BLOOM, CHM7 ####[facility] (DEFAULT)[address] [facility] [place] [address] Sodium [Moles/Vol] 141 mmol/L Normal 135-145 [facility] Comment on above: Performed By: #### TAVO RAMÍREZ, CHM7 ####[facility] (DEFAULT)[address] [facility] [place] [address] Urea nitrogen [Mass/Vol] 15 mg/dL Normal 7-25 [facility] Comment on above: Performed By: #### TAVO RAMÍREZ, CHM7 ####[facility] (DEFAULT)[address] [facility] [place] [address] Urea nitrogen/Creatinine [Mass ratio] 13 mg/mg Normal [facility] Comment on above: Performed By: #### TAVO RAMÍREZ, CHM7 ####[facility] (DEFAULT)[address] [facility] [place] [address] Anion gap [Moles/Vol] 12 mmol/L 7 - 17 mmol/L [facility] Chloride [Moles/Vol] 105 mmol/L 98 - 10 8 mmol/L [facility] CO2 [Moles/Vol] 28 mmol/L 21 - 31 mmol/L [facility] Creatinine [Mass/Vol] 1.12 mg/dL 0.70 - 1.30 mg/dL [facility] eGFR, CKD-EPI, Male 79 - PINF [facility] Comment on above: Reported eGFR is bas ed on the CKD-EPI 2020 equation using creatinine, age, and sex. Glucose [Mass/Vol] 88 mg/dL 70 - 99 mg/dL [facility] Osmolality Calc [Osmolality] 294 [facility] Potassium [Moles/Vol] 3.8 mmol/L 3.5 - 5.0 mmol/L [facility] Sodium [Moles/Vol] 141 mmol/L 135 - 145 mmol/L [facility] Urea nitrogen [Mass/Vol] 15 mg/dL 7 - 25 mg/dL [facility] Urea nitrogen/Creatinine [Mass ratio] 13 mg/mg [facility] Cardiac catheterization stud yon 01-20-2024 [facility] Radiology Study observation (narrative) [facility] Radiology Study observation (narrative) [facility] EBV BY PCR, QUANTITATIVE,BLO ODOrdered By: Charlotte Jensen on 01-20-2024 EBV DNA ESTELITA+probe (Unsp spec) [#/Vol] NINF [facility] Interpretation and review of laboratory results Normal [facility] This test was perfor med using a real time PCR assay. The dynamic range for this assay is 1000-5,000,000 IU/mL. A result <1000 IU/mL does not rule out the presence of EBV DNA in quantities below the sensitivity of this assay. This test was developed and its performance characteristics determined by [facility]. It has not been cleared or approved by the FDA. The laboratory is regulated under CLIA as qualified to perform high-complexity testing. This test is used for clinical purposes. It should not be regarded as investigational or for research. [facility] HEPATIC FUNCTION PANELon Albumin [Mass/Vol] 3.7 g/dL Normal 3.5-5.0 [facility] Comment on above: Performed By: #### M TAVO BLOOM, CHM7 ####[facility] (DEFAULT)[address] [place] [address] ALP [Catalytic activity/Vol] 73 U/L Normal 32-126 [facility] Comment on above: Performed By: #### TAVO RAMÍREZ, CHM7 ####[facility] (DEFAULT)[address] [place] [address] ALT [Catalytic activity/Vol] 12 U/L Normal 10-52 [facility] Comment on above: Performed By: #### M TAVO BLOOM, CHM7 ####[facility] (DEFAULT)[address] [place] [address] AST [Catalytic activity/Vol] 19 U/L Normal 10-39 [facility] Comment on above: Performed By: #### M TAVO BLOOM, CHM7 ####[facility] (DEFAULT)[address] [place] [address] Bilirubin [Mass/Vol] 2.1 mg/dL High <1.5 [facility] Comment on above: Performed By: #### TAVO RAMÍREZ, CHM7 ####[facility] (DEFAULT)[address] [place] [address] Bilirubin.indirect [Mass/Vol] 0.5 mg/dL High <0.3 [facility] Comment on above: Performed By: #### TAVO RAMÍREZ, CHM7 ####[facility] (DEFAULT)[address] [facility] [place] [address] Protein [Mass/Vol] 6.1 g/dL Low 6.4-8.3 [facility] Comment on above: Performed By: #### TAVO RAMÍREZ, CHM7 ####[facility] (DEFAULT)[address] [place] [address] Albumin [Mass/Vol] 3.7 g/dL 3.5 - 5.0 g/dL [facility] ALP [Catalytic activity/Vol] 73 U/L 32 - 126 U/L [facility] ALT [Catalytic activity/Vol] 12 U/L 10 - 52 U/L [facility] AST [Catalytic activity/Vol] 19 U/L 10 - 39 U/L [facility] Bilirubin [Mass/Vol] 2.1 mg/dL High NINF - 1.5 mg/dL [facility] Bilirubin.direct [Mass/Vol] 0.5 mg/dL High NINF - 0.3 mg/dL [facility] Interpretation and review of laboratory results Abnormal [facility] Protein [Mass/Vol] 6.1 g/dL Low 6.4 - 8.3 g/dL [facility] ITRACONAZOLE LEVELon 024 Hydroxyitraconazole 7.6 mcg/mL Normal [facility] Comment on above: Order Comment: Pleas e draw level at specified interval PRIOR to dose. Result Comment: ---- REFERENCE VALUE No therapeutic range established; activity and serumconcentration are similar to parent drug. ADDITIONAL INFORMATION This test was developed and its performance characteristicsdetermined by [facility] in a manner consistent with CLIArequirements. This test has not been cleared or approved bythe U.S. Food and Drug Administration.Test Performed by:[address] Director: Rosendo Bose M.D. Ph.D.; CLIA# [id number] Performed By: #### Y ITCON ####[facility] (DEFAULT)[address] [place] [address] Itraconazole 6.0 mcg/mL Normal [facility] Comment on above: Order Comment: Pleas e draw level at specified interval PRIOR to dose. Result Comment: ---- REFERENCE VALUE-------------------------->0.5 (localized infection), >1.0 (systemic infection) Performed By: #### Y ITCON ####[facility] (DEFAULT)[address] [place] [address] MAGNESIUMon 01-20-2024 Magnesium [Mass/Vol] 1.6 mg/dL Normal 1.6-2.6 [facility] Comment on above: Performed By: #### Rod BLOOM, TAVO, CHM7 ####[facility] (DEFAULT)[address] [address] Interpretation and review of laboratory results Normal [facility] Magnesium [Mass/Vol] 1.6 mg/dL 1.6 - 2 .6 mg/dL [facility] No Panel Informationon 01-20 [facility] POCT CO-OXIMETRYon Hemoglobin (Bld) [Mass/Vol] 12.8 g/dL Low 13.4 - 16.8 g/dL [facility] Interpretation and review of laboratory results Abnormal [facility] Oxyhemoglobin 69 % Low 94 - 98 % [facility] Ordering physician notified. Test performed at address of the patient encounter. [facility] Hemoglobin (Bld) [Mass/Vol] 13.3 g/dL Low 13.4 - 16.8 g/dL [facility] Interpretation and review of laboratory results Abnormal [facility] Oxyhemoglobin 69 % Low 94 - 98 % [facility] Ordering physician notified. Test performed at address of the patient encounter. [facility] PT,INR,PTTon 01-20-2024 aPTT Coag (Bld) [Time] 30.6 s Normal 24.0-34.3 [facility] Comment on above: Performed By: #### P TPTT ####[facility] (DEFAULT)[address] [place] [address] INR Coag (PPP) [Relative time] 1.2 {INR} High 0.9-1.1 [facility] Comment on above: Performed By: #### P TPTT ####[facility] (DEFAULT)[address] [place] [address] PT Coag (PPP) [Time] 15.5 s High 11.9-14.2 [facility] Comment on above: Performed By: #### P TPTT ####[facility] (DEFAULT)[address] [place] [address] aPTT Coag (PPP) [Time] 30.6 s [facility] INR Coag (Bld) [Relative time] 1.2 {INR} High 0.9 - 1.1 [facility] Interpretation and review of laboratory results Abnormal [facility] PT Coag (PPP) [Time] 15.5 s High [facility] TACROLIMUS LEVEL, TROUGH (UT E DRUG LEVEL)Ordered By: Yanira Marcum on 01-20-2024 Interpretation and review of laboratory results Normal [facility] Tacrolimus (Bld) [Mass/Vol] 7.7 ng/mL Bone Marrow Transplant: 4.0-12.0, Therapeutic: 5.0-15.0 [facility] Method performed is a chemiluminescent microparticle immunoasssay on the [employer] i2000. The range is based on experience at [facility] and users should be aware that target concentrations vary widely depending on concomitant therapy, time post-transplant, and desired degree of immunosuppression. [facility] TACROLIMUS LEVEL, TROUGH (UT E DRUG LEVEL)on 01-20-2024 Tacrolimus, Trough 7.7 ng/mL Normal Bone Susana ow Transplant: 4.0-12.0, Therapeutic: 5.0-15.0 [facility] Comment on above: Order Comment: Pleas e draw at specified interval PRIOR to dose. Do not hold dose to wait for level. Specimens batched twice per day, (M-F) and once per day weekendsMethod performed is a chemiluminescent microparticle immunoasssay on the [employer] i2000.The range is based on experience at [facility] and users should be aware that target concentrations vary widely depending on concomitant therapy, time post-transplant, and desired degree of immunosuppression. Performed By: #### T ACRO ####[facility] (DEFAULT)[address] [place] [address] CBC,PLATELETSon 01-19-2024 Hematocrit (Bld) [Volume fraction] 37.5 % Low 39.6-48.8 [facility] Comment on above: Performed By: #### H EMO ####[facility] (DEFAULT)[address] [place] [address] Hemoglobin (Bld) [Mass/Vol] 12.1 g/dL Low 13.4-16.8 [facility] Comment on above: Performed By: #### H EMOGC ####[facility] (DEFAULT)[address] [place] [address] MCV (RBC) [Entitic vol] 87.8 fL Normal 79.0-94.5 [facility] Comment on above: Performed By: #### H EMOGC ####[facility] (DEFAULT)[address] [facility] [place] [address] Mean Cell Hgb 28.3 pg Normal 26.1-33.3 [facility] Comment on above: Performed By: #### H EMOGC ####[facility] (DEFAULT)[address] [facility] [place] [address] Mean Cell Hgb Conc 32.3 g/dL Normal 31.9-36.5 [facility] Comment on above: Performed By: #### H EMOGC ####[facility] (DEFAULT)[address] [facility] [place] [address] Platelet mean volume (Bld) [Entitic vol] 10.4 fL Normal 8.7-12.3 [facility] Comment on above: Performed By: #### H EMOGC ####[facility] (DEFAULT)[address] [place] [address] Platelets (Bld) [#/Vol] 163 10*3/uL Normal 146-337 [facility] Comment on above: Performed By: #### H EMOGC ####[facility] (DEFAULT)[address] [facility] [place] [address] RBC (Bld) [#/Vol] 4.27 10*6/uL Low 4.38-5.83 [facility] Comment on above: Performed By: #### H EMOGC ####[facility] (DEFAULT)[address] [place] [address] RBC Distribution 13.9 % Normal 10.9-14.3 [facility] Comment on above: Performed By: #### [facility] ####[facility] (DEFAULT)[address] [place] [address] WBC (Bld) [#/Vol] 3.69 10*3/uL Low 3.73-10.10 [facility] Comment on above: Performed By: #### [facility] ####[facility] (DEFAULT)[address] [place] [address] Erythrocyte distribution width (RBC) [Ratio] 13.9 % 10.9 - 14.3 % [facility] Hematocrit (Bld) [Volume fraction] 37.5 % Low 39.6 - 48.8 % [facility] Hemoglobin (Bld) [Mass/Vol] 12.1 g/dL Low 13.4 - 16.8 g/dL [facility] Interpretation and review of laboratory results Abnormal [facility] MCH (RBC) [Entitic mass] 28.3 pg 26.1 - 33.3 pg [facility] MCHC (RBC) [Mass/Vol] 32.3 g/dL 31.9 - 36.5 g/dL [facility] MCV (RBC) [Entitic vol] 87.8 fL 79.0 - 94.5 fL [facility] Platelet mean volume (Bld) [Entitic vol] 10.4 fL 8.7 - 12.3 fL [facility] Platelets (Bld) [#/Vol] 163 10*3/uL 146 - 337 K/uL [facility] RBC (Bld) [#/Vol] 4.27 10*6/uL Low [facility] WBC (Bld) [#/Vol] 3.69 10*3/uL Low 3.73 - 10. 10 K/uL [facility] CHEM 7 (LYTES,BUN,CREA,GLUC) on 01-19-2024 Anion gap [Moles/Vol] 14 mmol/L Normal 7-17 [facility] Comment on above: Performed By: #### TJ RAMÍREZ7 ####[facility] (DEFAULT)[address] [facility] [place] [address] Chloride [Moles/Vol] 106 mmol/L Normal 98-108 [facility] Comment on above: Performed By: #### TJ RAMÍREZ7 ####[facility] (DEFAULT)[address] [facility] [place] [address] CO2 [Moles/Vol] 24 mmol/L Normal 21-31 [facility] Comment on above: Performed By: #### TJ RAMÍREZ7 ####[facility] (DEFAULT)[address] [facility] [place] [address] Creatinine [Mass/Vol] 1.13 mg/dL Normal 0.70-1.30 [facility] Comment on above: Performed By: #### TJ RAMÍREZ7 ####[facility] (DEFAULT)[address] [facility] [place] [address] GFR/1.73 sq M.predicted among non-blacks MDRD (S/P/Bld) [Vol rate/Area] 78 mL/min/{1.73_m2} Normal >=60 [facility] Comment on above: Result Comment: Repo rted eGFR is based on the CKD-EPI 2020 equation using creatinine, age, and sex. Performed By: #### TJ RAMÍREZ7 ####[facility] (DEFAULT)[address] [facility] [place] [address] Glucose [Mass/Vol] 86 mg/dL Normal 70-99 [facility] Comment on above: Performed By: #### TJ RAMÍREZ7 ####[facility] (DEFAULT)[address] [facility] [place] [address] Osmolality [Osmolality] 293 mosm/kg Normal 278-305 [facility] Comment on above: Performed By: #### TJ RAMÍREZ7 ####[facility] (DEFAULT)[address] [place] [address] Potassium [Moles/Vol] 3.8 mmol/L Normal 3.5-5.0 [facility] Comment on above: Performed By: #### M MERLE, CHM7 ####[facility] (DEFAULT)[address] [place] [address] Sodium [Moles/Vol] 140 mmol/L Normal 135-145 [facility] Comment on above: Performed By: #### Rod BLOOM CHM7 ####[facility] (DEFAULT)[address] [facility] [place] [address] Urea nitrogen [Mass/Vol] 16 mg/dL Normal 7-25 [facility] Comment on above: Performed By: #### Rod BLOOM, CHM7 ####[facility] (DEFAULT)[address] [facility] [place] [address] Urea nitrogen/Creatinine [Mass ratio] 14 mg/mg Normal [facility] Comment on above: Performed By: #### Rod BLOOM CHM7 ####[facility] (DEFAULT)[address] [facility] [place] [address] Anion gap [Moles/Vol] 14 mmol/L 7 - 17 mmol/L [facility] Chloride [Moles/Vol] 106 mmol/L 98 - 10 8 mmol/L [facility] CO2 [Moles/Vol] 24 mmol/L 21 - 31 mmol/L [facility] Creatinine [Mass/Vol] 1.13 mg/dL 0.70 - 1.30 mg/dL [facility] eGFR, CKD-EPI, Male 78 - PINF [facility] Comment on above: Reported eGFR is bas ed on the CKD-EPI 2020 equation using creatinine, age, and sex. Glucose [Mass/Vol] 86 mg/dL 70 - 99 mg/dL [facility] O[facility] Calc [Osmolality] [facility] Potassium [Moles/Vol] 3.8 mmol/L 3.5 - 5.0 mmol/L [facility] Sodium [Moles/Vol] 140 mmol/L 135 - 145 mmol/L [facility] Urea nitrogen [Mass/Vol] 16 mg/dL 7 - 25 mg/dL [facility] Urea nitrogen/Creatinine [Mass ratio] 14 mg/mg [facility] EBV BY PCR, QUANTITATIVE,BRANDIN ODon 01-19-2024 Ebv By Pcr, Quant, Blood <1000 Normal <1000 [facility] Comment on above: Order Comment: This test was performed using a real time PCR assay. The dynamic range for this assay is 1000-5,000,000 IU/mL. A result <1000 IU/mL does not rule out the presence of EBV DNA in quantities below the sensitivity of this assay. This test was developed and its performance characteristics determined by [facility]. It has not been cleared or approved by the FDA. The laboratory is regulated under CLIA as qualified to perform high-complexity testing. This test is used for clinical purposes. It should not be regarded as investigational or for research. Performed By: #### E BVPCR ####[facility] (DEFAULT)[address] [place] [address] HISTOPLASMA AND BLASTOMYCES ANTIGEN, ENZYME IMMUNOASSAY, SERMon 01-19-2024 Histoplasma/Blastomy antonia Ag Result Not detected Not Detected [facility] Comment on above: No antigen from Hist oplasma or Blastomyces detected. False negative results may occur depending on extent of disease, and/or site of infection. Repeat testing on a new specimen if clinically indicated. Histoplasma/Blastomy antonia Ag Value Not detected ng/mL [facility] Comment on above: ADDITIONAL INFORMATION This test was developed and its performance characteristics determined by [facility] in a manner consistent with CLIA requirements. This test has not been cleared or approved by the U.S. Food and Drug Administration. Test Performed by: [facility] - [address] [address] [place] Worker: Rosendo Bose M.D. Ph.D.; CLIA# [id number] [facility] MAGNESIUMon 01-19-2024 Magnesium [Mass/Vol] 1.8 mg/dL Normal 1.6-2.6 [facility] Comment on above: Performed By: #### M MERLE, CHM7 ####[facility] (DEFAULT)[address] [place] [address] Interpretation and review of laboratory results Normal [facility] Magnesium [Mass/Vol] 1.8 mg/dL 1.6 - 2 .6 mg/dL [facility] No Panel Informationon 01-19 [facility] TACROLIMUS LEVEL, TROUGH (UT E DRUG LEVEL)Ordered By: Raymundo Mehta on 01-19-2024 Interpretation and review of laboratory results Normal [facility] Tacrolimus (Bld) [Mass/Vol] 6.8 ng/mL Bone Marrow Transplant: 4.0-12.0, Therapeutic: 5.0-15.0 [facility] Method performed is a chemiluminescent microparticle immunoasssay on the [employer] i2000. The range is based on experience at [facility] and users should be aware that target concentrations vary widely depending on concomitant therapy, time post-transplant, and desired degree of immunosuppression. [facility] TACROLIMUS LEVEL, TROUGH (UT E DRUG LEVEL)on 01-19-2024 Tacrolimus, Trough 6.8 ng/mL Normal Bone Susana ow Transplant: 4.0-12.0, Therapeutic: 5.0-15.0 [facility] Comment on above: Order Comment: Pleas e draw at specified interval PRIOR to dose. Do not hold dose to wait for level. Specimens batched twice per day, (M-F) and once per day weekendsMethod performed is a chemiluminescent microparticle immunoasssay on the [employer] i2000.The range is based on experience at [facility] and users should be aware that target concentrations vary widely depending on concomitant therapy, time post-transplant, and desired degree of immunosuppression. Performed By: #### T ACRO ####[facility] (DEFAULT)[address] [place] [address] US AV fistulaOrdered By: Diana Reyes on 01-19-2024 [facility] Work Phone: US AV fistulaon 01-19-2024 Radiology Study observation (narrative) [facility] AFP TUMOR MARKEROrdered By: Francisca Alaniz on 01-18-2024 AFP.tumor marker [Mass/Vol] ng/mL NINF - 8.1 ng/mL [facility] Comment on above: This test was perfor med on the [employer] Immunoassay platform by [employer] which is a two-site sandwich chemiluminescent immunoassay. It is important to note that assays using different manufacturers and/or methods may not be comparable. Interpretation and review of laboratory results Normal [facility] CBC,PLATELETSon 01-18-2024 Hematocrit (Bld) [Volume fraction] 38.4 % Low 39.6-48.8 [facility] Comment on above: Performed By: #### [facility] ####[facility] (DEFAULT)[address] [place] [address] Hemoglobin (Bld) [Mass/Vol] 12.1 g/dL Low 13.4-16.8 [facility] Comment on above: Performed By: #### H EMO ####[facility] (DEFAULT)[address] [place] [address], [place] [address] MCV (RBC) [Entitic vol] 88.3 fL Normal 79.0-94.5 [facility] Comment on above: Performed By: #### H EMOGC ####[facility] (DEFAULT)[address] [place] [address] [place] [address] Mean Cell Hgb 27.8 pg Normal 26.1-33.3 [facility] Comment on above: Performed By: #### H EMOGC ####[facility] (DEFAULT)[address] [facility] [place] [address] Mean Cell Hgb Conc 31.5 g/dL Low 31.9-36.5 [facility] Comment on above: Performed By: #### H EMOGC ####[facility] (DEFAULT)[address] [facility] [place] [address] Platelet mean volume (Bld) [Entitic vol] 10.4 fL Normal 8.7-12.3 [facility] Comment on above: Performed By: #### H EMOGC ####[facility] (DEFAULT)[address] [facility] [place] [address] Platelets (Bld) [#/Vol] 183 10*3/uL Normal 146-337 [facility] Comment on above: Performed By: #### H EMO ####[facility] (DEFAULT)[address] [facility] [place] [address] RBC (Bld) [#/Vol] 4.35 10*6/uL Low 4.38-5.83 [facility] Comment on above: Performed By: #### H EMO ####[facility] (DEFAULT)[address] [facility] [place] [address] RBC Distribution 13.9 % Normal 10.9-14.3 [facility] Comment on above: Performed By: #### H EMO ####[facility] (DEFAULT)[address] [facility] [place] [address] WBC (Bld) [#/Vol] 3.66 10*3/uL Low 3.73-10.10 [facility] Comment on above: Performed By: #### H EMO ####[facility] (DEFAULT)[address] [facility] [place] [address] Erythrocyte distribution width (RBC) [Ratio] 13.9 % 10.9 - 14.3 % [facility] Hematocrit (Bld) [Volume fraction] 38.4 % Low 39.6 - 48.8 % [facility] Hemoglobin (Bld) [Mass/Vol] 12.1 g/dL Low 13.4 - 16.8 g/dL [facility] Interpretation and review of laboratory results Abnormal [facility] MCH (RBC) [Entitic mass] 27.8 pg 26.1 - 33.3 pg [facility] MCHC (RBC) [Mass/Vol] 31.5 g/dL Low 31.9 - 36.5 g/dL [facility] MCV (RBC) [Entitic vol] 88.3 fL 79.0 - 94.5 fL [facility] Platelet mean volume (Bld) [Entitic vol] 10.4 fL 8.7 - 12.3 fL [facility] Platelets (Bld) [#/Vol] 183 10*3/uL 146 - 337 K/uL [facility] RBC (Bld) [#/Vol] 4.35 10*6/uL Low [facility] WBC (Bld) [#/Vol] 3.66 10*3/uL Low 3.73 - 10. 10 K/uL [facility] CHEM 7 (LYTES,BUN,CREA,GLUC) on 01-18-2024 Anion gap [Moles/Vol] 11 mmol/L Normal 7-17 [facility] Comment on above: Performed By: #### C HM7, HFP, MGO, TSHQR ####[facility] (DEFAULT)[address] [place] [address] Chloride [Moles/Vol] 108 mmol/L Normal 98-108 [facility] Comment on above: Performed By: #### C HM7, HFP, MGO, TSHQR ####[facility] (DEFAULT)[address] [facility] [place] [address] CO2 [Moles/Vol] 26 mmol/L Normal 21-31 [facility] Comment on above: Performed By: #### C HM7, HFP, MGO, TSHQR ####[facility] (DEFAULT)[address] [place] [address] Creatinine [Mass/Vol] 1.00 mg/dL Normal 0.70-1.30 [facility] Comment on above: Performed By: #### C HM7, HFP, MGO, TSHQR ####[facility] (DEFAULT)[address] [place] [address] eGFR, CKD-EPI, Male > Normal >=60 [facility] Comment on above: Result Comment: Repo rted eGFR is based on the CKD-EPI 2020 equation using creatinine, age, and sex. Performed By: #### C HM7, HFP, MGO, TSHQR ####[facility] (DEFAULT)[address] [place] [address] Glucose [Mass/Vol] 89 mg/dL Normal 70-99 [facility] Comment on above: Performed By: #### C HM7, HFP, MGO, TSHQR ####[facility] (DEFAULT)[address] [place] [address] Osmolality [Osmolality] 295 mosm/kg Normal 278-305 [facility] Comment on above: Performed By: #### C HM7, HFP, MGO, TSHQR ####[facility] (DEFAULT)[address] [place] [address] Potassium [Moles/Vol] 3.9 mmol/L Normal 3.5-5.0 [facility] Comment on above: Performed By: #### C HM7, HFP, MGO, TSHQR ####[facility] (DEFAULT)[address] [place] [address] Sodium [Moles/Vol] 141 mmol/L Normal 135-145 [facility] Comment on above: Performed By: #### C HM7, HFP, MGO, TSHQR ####[facility] (DEFAULT)[address] [place] [address] Urea nitrogen [Mass/Vol] 16 mg/dL Normal 7-25 [facility] Comment on above: Performed By: #### C HM7, HFP, MGO, TSHQR ####[facility] (DEFAULT)[address] [place] [address] Urea nitrogen/Creatinine [Mass ratio] 16 mg/mg Normal [facility] Comment on above: Performed By: #### C HM7, HFP, MGO, TSHQR ####[facility] (DEFAULT)[address] [place] [address] Anion gap [Moles/Vol] 11 mmol/L 7 - 17 mmol/L [facility] Chloride [Moles/Vol] 108 mmol/L 98 - 10 8 mmol/L [facility] CO2 [Moles/Vol] 26 mmol/L 21 - 31 mmol/L [facility] Creatinine [Mass/Vol] 1.00 mg/dL 0.70 - 1.30 mg/dL [facility] eGFR, CKD-EPI, Male - PINF [facility] Comment on above: Reported eGFR is bas ed on the CKD-EPI 2020 equation using creatinine, age, and sex. Glucose [Mass/Vol] 89 mg/dL 70 - 99 mg/dL [facility] Osmolality Calc [Osmolality] 295 [facility] Potassium [Moles/Vol] 3.9 mmol/L 3.5 - 5.0 mmol/L [facility] Sodium [Moles/Vol] 141 mmol/L 135 - 145 mmol/L [facility] Urea nitrogen [Mass/Vol] 16 mg/dL 7 - 25 mg/dL [facility] Urea nitrogen/Creatinine [Mass ratio] 16 mg/mg [facility] Cardiac echo study Procedure Ordered By: Gian Carlos on 01-18-2024 Ao ASC index 1.63 cm/m2 [facility] Work Phone: Ao peak meliton 1.46 m/s [facility] Work Phone: Ao SOV index 1.56 cm/m2 [facility] Work Phone: Ao STJ index 1.25 cm/m2 [facility] Work Phone: Ao VTI 35.74 cm [facility] Work Phone: [facility] AV LVOT peak gradient 4 mmHg [facility] Work Phone: AV mean gradient 5 mmHg [facility] Work Phone: AV peak gradient 9 mmHG [facility] Work Phone: [phone] AV valve area 3.09 cm2 [facility] Work Phone: AV Velocity Ratio 0.73 [facility] Work Phone: VEGA (continuity Vmax) 3.01 cm2 [facility] Work Phone: VEGA (continuity VTI) 3.09 cm2 [facility] Work Phone: VEGA index (continuity Vmax) 1.45 m/s [facility] Work Phone: VEGA index (continuity VTI) 1.49 cm2/m2 [facility] Work Phone: Avg e' pk meliton 0.07 m/s [facility] Work Phone: Avg E/e' ratio 19.45 [facility] Work Phone: Body surface area Derived from formula 2.08 m2 [facility] Work Phone: BP EF 62 % [facility] Work Phone: DI (Vmax) 0.73 [facility] Work Phone: DI (VTI) 0.74 m/2 [facility] Work Phone: E wave decelartion time 180.38 msec [facility] Work Phone: e' lateral pk meliton 0.0789 m/s [facility] Work Phone: e' lateral pk meliton 0.08 m/s [facility] Work Phone: e' septal pk meliton 0.0653 m/s [facility] Work Phone: e' septal pk meliton 0.07 m/s [facility] Work Phone: E/A ratio 2.67 [facility] Work Phone: E/e' lateral ratio 17.62 [facility] Work Phone: E/e' septal ratio 21.29 [facility] Work Phone: EF SP 2CH 66 [facility] Work Phone: EF SP 4CH 58 [facility] Work Phone: FS 28 % 28 - 44 % [facility] Work [facility]: IVC ostium 2.30 cm [facility] Work Phone: IVS 1.11 cm [facility] Work Phone: LA AREA 2CH 24.36 cm2 [facility] Work Phone: LA area 4CH 20.36 cm2 [facility] Work Phone: LA ESV BP (MOD) 64 mL [facility] Work Phone: LA ESV BP (MOD) index 31 mL/m2 [facility] Work Phone: LA ESV SP 2CH (MOD) 76 mL [facility] Work Phone: LA ESV SP 4CH (MOD) 53 mL [facility] Work Phone: LV EDV BP 180 [facility] Work [facility]: LV EDV SP 2CH 190 [facility] Work Phone: LV EDV SP 4CH 166 [facility] Work Phone: LV ESV BP 69 mL [facility] Work Phone: LV ESV SP 2CH 65 mL [facility] Work Phone: LV ESV SP 4CH 70 [facility] Work Phone: LV mass 254.73 g [facility] Work Phone: LV Mass Index 122.5 g/m2 [facility] Work Phone: LV RWT 0.42 [facility] Work Phone: LV stroke volume BP (ml) 111 mL [facility] Work Phone: LV stroke volume index BP 53.37 mL/m2 [facility] Work Phone: LVIDD 5.53 cm [facility] Work Phone: LVIDS 3.97 cm [facility] Work Phone: [phone] LVOT area 4.15 cm2 [facility] Work Phone: LVOT diameter 2.30 cm [facility] Work Phone: LVOT peak meliton 1.06 m/s [facility] Work Phone: LVOT peak VTI 26.61 cm [facility] Work Phone: LVOT stroke volume 111 cm3 [facility] Work Phone: LVOT stroke volume index 53.13 ml/m2 [facility] Work [facility]: Mr max meliton 4.21 m/s [facility]: MR VTI 134.50 [facility] Work Phone: MV mean gradient 3 mmHg [facility] Work Phone: MV peak gradient 11 mmHg [facility] Work Phone: MV pk A meliton 0.52 m/s [facility] Work Phone: MV pk E meliton 1.39 m/s [facility] Work Phone: MV stenosis pressure 1/2 time 58.56 ms [facility] Work Phone: MV valve area by continuity eq 2.93 cm2 [facility] Work Phone: MV valve area p 1/2 method 3.76 cm2 [facility] Work Phone: MV VTI 37.70 [facility] Work Phone: MVA (continuity VTI) 2.92 cm [facility] Work Phone: [facility] AV VTI RATIO PRE STRESS 0.74 [facility] Work Phone: [facility] ECHO LV BIPLANE SYSTOLIC VOLUME INDEX 33.17 mL/m2 [facility] Work Phone: [facility] E[facility] LV BP DIASTOLIC VOLUME INDEX 86.54 mL/m2 [facility] Work Phone: [facility]ADIENT [facility]: PW 1.16 cm [facility] Work Phone: RA area 4CH (MOD) 14.50 [facility]: RA vol index 4CH (MOD) 18.27 mL/[facility] Work Phone: Right atrium volume 4 chamber method of disks 38 [facility] Work Phone: RV Area diastolic 33.20 cm2 [facility] Work Phone: RV Area systolic 21.30 [facility]2 [facility] Work Phone: RV basal diam 4.52 cm [facility] Work Phone: RV Fractional area change 35.8 % [facility] Work Phone: RV long diam 8.96 [facility]: RV mid diam 3.70 cm [facility] Work Phone: RV S' 22.01 cm/s [facility] Work Phone: RVOT peak gradient 4 mmHg [facility] Work Phone: RVOT peak meliton 0.96 m/s [facility] Work Phone: RVOT peak VTI 20.86 cm [facility] Work Phone: Sinus 3.24 cm [facility] Work Phone: STJ 2.61 cm [facility] Work Phone: Stroke Volume 111 cm/mL [facility] Work Phone: Stroke volume index 53 [facility] Work Phone: TAPSE 2.19 cm [facility] Work Phone: [facility] Work Phone: Cardiac echo study [...] echocardiography study was performed. Imaging system used: [employer]. Indications Indications for study: shortness of breath. [facility] Radiology Study observation (narrative) [facility] HEPATIC FUNCTION PANELon Albumin [Mass/Vol] 3.5 g/dL Normal 3.5-5.0 [facility] Comment on above: Performed By: #### C HM7, HFP, MGO, TSHQR ####[facility] (DEFAULT)[address] [place] [address] ALP [Catalytic activity/Vol] 70 U/L Normal 32-126 [facility] Comment on above: Performed By: #### C HM7, HFP, MGO, TSHQR ####[facility] (DEFAULT)[address] [place] [address] ALT [Catalytic activity/Vol] 8 U/L Low 10-52 [facility] Comment on above: Performed By: #### C HM7, HFP, MGO, TSHQR ####[facility] (DEFAULT)[address] [place] [address] AST [Catalytic activity/Vol] 20 U/L Normal 10-39 [facility] Comment on above: Performed By: #### C HM7, HFP, MGO, TSHQR ####[facility] (DEFAULT)[address] [place] [address] Bilirubin [Mass/Vol] 1.7 mg/dL High <1.5 [facility] Comment on above: Performed By: #### C HM7, HFP, MGO, TSHQR ####[facility] (DEFAULT)[address] [place] [address] Bilirubin.indirect [Mass/Vol] 0.4 mg/dL High <0.3 [facility] Comment on above: Performed By: #### C HM7, HFP, MGO, TSHQR ####[facility] (DEFAULT)[address] [place] [address] Protein [Mass/Vol] 6.0 g/dL Low 6.4-8.3 [facility] Comment on above: Performed By: #### C HM7, HFP, MGO, TSHQR ####[facility] (DEFAULT)[address] [place] [address] Albumin [Mass/Vol] 3.5 g/dL 3.5 - 5.0 g/dL [facility] ALP [Catalytic activity/Vol] 70 U/L 32 - 126 U/L [facility] ALT [Catalytic activity/Vol] 8 U/L Low 10 - 52 U/L [facility] AST [Catalytic activity/Vol] 20 U/L 10 - 39 U/L [facility] Bilirubin [Mass/Vol] 1.7 mg/dL High NINF - 1.5 mg/dL [facility] Bilirubin.direct [Mass/Vol] 0.4 mg/dL High NINF - 0.3 mg/dL [facility] Protein [Mass/Vol] 6.0 g/dL Low 6.4 - 8.3 g/dL [facility] MAGNESIUMon 01-18-2024 Magnesium [Mass/Vol] 1.5 mg/dL Low 1.6-2.6 [facility] Comment on above: Performed By: #### C HM7, HFP, MGO, TSHQR ####[facility] (DEFAULT)[address] [facility] [place] [address] Magnesium [Mass/Vol] 1.5 mg/dL Low 1.6 - 2 .6 mg/dL [facility] No Panel Informationon 01-18 Interpretation and review of laboratory results Abnormal [facility] PT,INR,PTTon 01-18-2024 aPTT Coag (Bld) [Time] 30.0 s Normal 24.0-34.3 [facility] Comment on above: Performed By: #### P TPTT ####[facility] (DEFAULT)[address] [facility] [place] [address] INR Coag (PPP) [Relative time] 1.1 {INR} Normal 0.9-1.1 [facility] Comment on above: Performed By: #### P TPTT ####[facility] (DEFAULT)[address] [place] [address] PT Coag (PPP) [Time] 14.5 s High 11.9-14.2 [facility] Comment on above: Performed By: #### P TPTT ####[facility] (DEFAULT)[address] [facility] [place] [address] aPTT Coag (PPP) [Time] 30.0 s [facility] INR Coag (Bld) [Relative time] 1.1 {INR} 0.9 - 1.1 [facility] Interpretation and review of laboratory results Abnormal [facility] PT Coag (PPP) [Time] 14.5 s High [facility] TSH W/FT4 REFLEXon 4 Interpretation and review of laboratory results Normal [facility] TSH Qn 2.660 m[IU]/L [facility] TSH 2.660 uIU/mL Normal 0.550-4.780 [facility] Comment on above: Performed By: #### C HM7, HFP, MGO, TSHQR ####[facility] (DEFAULT)[address] [place] [address] AFP TUMOR MARKERon AFP Tumor Marker <2.2 Normal <8.1 [facility] Comment on above: Result Comment: This test was performed on the [employer] Immunoassay platform by [employer] which is a two-site sandwich chemiluminescent immunoassay. It is important to note that assays using different manufacturers and/or methods may not be comparable. Performed By: #### A FPTMR ####[facility] (DEFAULT)[address] [place] [address] DARYL AURIS SCREEN BY PCRO rdered By: Mynor Alejandro on 01-17-2024 Daryl auris Screen by PCR Not detected Not Detected [facility] Interpretation and review of laboratory results Normal [facility] This test was perfor med using a real-time PCR assay. This test was developed, and its performance characteristics determined by [facility]. It has not been cleared or approved by the FDA. The laboratory is regulated under CLIA as qualified to perform high-complexity testing. This test is used for clinical purposes. It should not be regarded as investigational or for research. [facility] CBC,PLATELETSon 01-17-2024 Hematocrit (Bld) [Volume fraction] 37.2 % Low 39.6-48.8 [facility] Comment on above: Performed By: #### H EMOGC ####[facility] (DEFAULT)[address] [facility] [place] [address] Hemoglobin (Bld) [Mass/Vol] 12.0 g/dL Low 13.4-16.8 [facility] Comment on above: Performed By: #### H EMOGC ####[facility] (DEFAULT)[address] [facility] [place] [address] MCV (RBC) [Entitic vol] 86.5 fL Normal 79.0-94.5 [facility] Comment on above: Performed By: #### H EMOGC ####[facility] (DEFAULT)[address] [facility] [place] [address] Mean Cell Hgb 27.9 pg Normal 26.1-33.3 [facility] Comment on above: Performed By: #### H EMOGC ####[facility] (DEFAULT)[address] [facility] [place] [address] Mean Cell Hgb Conc 32.3 g/dL Normal 31.9-36.5 [facility] Comment on above: Performed By: #### H EMOGC ####[facility] (DEFAULT)[address] [facility] [place] [address] Platelet mean volume (Bld) [Entitic vol] 10.5 fL Normal 8.7-12.3 [facility] Comment on above: Performed By: #### H EMOGC ####[facility] (DEFAULT)[address] [facility] [place] [address] Platelets (Bld) [#/Vol] 159 10*3/uL Normal 146-337 [facility] Comment on above: Performed By: #### H EMOGC ####[facility] (DEFAULT)[address] [facility] [place] [address] RBC (Bld) [#/Vol] 4.30 10*6/uL Low 4.38-5.83 [facility] Comment on above: Performed By: #### H [facility] ####[facility] (DEFAULT)[address] [facility] [place] [address] RBC Distribution 14.0 % Normal 10.9-14.3 [facility] Comment on above: Performed By: #### H EMO ####[facility] (DEFAULT)[address] [place] [address] WBC (Bld) [#/Vol] 3.69 10*3/uL Low 3.73-10.10 [facility] Comment on above: Performed By: #### H [facility] ####[facility] (DEFAULT)[address] [place] [address] Erythrocyte distribution width (RBC) [Ratio] 14.0 % 10.9 - 14.3 % [facility] Hematocrit (Bld) [Volume fraction] 37.2 % Low 39.6 - 48.8 % [facility] Hemoglobin (Bld) [Mass/Vol] 12.0 g/dL Low 13.4 - 16.8 g/dL [facility] Interpretation and review of laboratory results Abnormal [facility] MCH (RBC) [Entitic mass] 27.9 pg 26.1 - 33.3 pg [facility] MCHC (RBC) [Mass/Vol] 32.3 g/dL 31.9 - 36.5 g/dL [facility] MCV (RBC) [Entitic vol] 86.5 fL 79.0 - 94.5 fL [facility] Platelet mean volume (Bld) [Entitic vol] 10.5 fL 8.7 - 12.3 fL [facility] Platelets (Bld) [#/Vol] 159 10*3/uL 146 - 337 K/uL [facility] RBC (Bld) [#/Vol] 4.30 10*6/uL Low [facility] WBC (Bld) [#/Vol] 3.69 10*3/uL Low 3.73 - 10. 10 K/uL [facility] CHEM 7 (LYTES,BUN,CREA,GLUC) on 01-17-2024 Anion gap [Moles/Vol] 13 mmol/L Normal 7-17 [facility] Comment on above: Performed By: #### C HM7, HFP, MGO ####[facility] (DEFAULT)[address] [place] [address] Chloride [Moles/Vol] 109 mmol/L High 98-108 [facility] Comment on above: Performed By: #### C HM7, HFP, MGO ####[facility] (DEFAULT)[address] [facility] [place] [address] CO2 [Moles/Vol] 21 mmol/L Normal 21-31 [facility] Comment on above: Performed By: #### C HM7, HFP, MGO ####[facility] (DEFAULT)[address] [facility] [place] [address] Creatinine [Mass/Vol] 1.04 mg/dL Normal 0.70-1.30 [facility] Comment on above: Performed By: #### C HM7, HFP, MGO ####[facility] (DEFAULT)[address] [facility] [place] [address] GFR/1.73 sq M.predicted among non-blacks MDRD (S/P/Bld) [Vol rate/Area] 86 mL/min/{1.73_m2} Normal >=60 [facility] Comment on above: Result Comment: Repo rted eGFR is based on the CKD-EPI 2020 equation using creatinine, age, and sex. Performed By: #### C HM7, HFP, MGO ####[facility] (DEFAULT)[address] [place] [address] Glucose [Mass/Vol] 82 mg/dL Normal 70-99 [facility] Comment on above: Performed By: #### C HM7, HFP, MGO ####[facility] (DEFAULT)[address] [facility] [place] [address] Osmolality [Osmolality] 292 mosm/kg Normal 278-305 [facility] Comment on above: Performed By: #### C HM7, HFP, MGO ####[facility] (DEFAULT)[address] [place] [address] Potassium [Moles/Vol] 4.4 mmol/L Normal 3.5-5.0 [facility] Comment on above: Performed By: #### C HM7, HFP, MGO ####[facility] (DEFAULT)[address] [place] [address] Sodium [Moles/Vol] 139 mmol/L Normal 135-145 [facility] Comment on above: Performed By: #### C HM7, HFP, MGO ####[facility] (DEFAULT)[address] [facility] [place] [address] Urea nitrogen [Mass/Vol] 17 mg/dL Normal 7-25 [facility] Comment on above: Performed By: #### Chinedu HM7, HFP, MGO ####[facility] (DEFAULT)[address] [facility] [place] [address] Urea nitrogen/Creatinine [Mass ratio] 16 mg/mg Normal [facility] Comment on above: Performed By: #### Chinedu HM7, HFP, MGO ####[facility] (DEFAULT)[address] [facility] [place] [address] Anion gap [Moles/Vol] 13 mmol/L 7 - 17 mmol/L [facility] Chloride [Moles/Vol] 109 mmol/L High 98 - 10 8 mmol/L [facility] CO2 [Moles/Vol] 21 mmol/L 21 - 31 mmol/L [facility] Creatinine [Mass/Vol] 1.04 mg/dL 0.70 - 1.30 mg/dL [facility] eGFR, CKD-EPI, Male 86 - PINF [facility] Comment on above: Reported eGFR is bas ed on the CKD-EPI 2020 equation using creatinine, age, and sex. Glucose [Mass/Vol] 82 mg/dL 70 - 99 mg/dL [facility] Osmolality Calc [Osmolality] 292 [facility] Potassium [Moles/Vol] 4.4 mmol/L 3.5 - 5.0 mmol/L [facility] Sodium [Moles/Vol] 139 mmol/L 135 - 145 mmol/L [facility] Urea nitrogen [Mass/Vol] 17 mg/dL 7 - 25 mg/dL [facility] Urea nitrogen/Creatinine [Mass ratio] 16 mg/mg [facility] CT ABDOMEN/PELVIS WITHOUT CO NTRASTon 01-17-2024 CT ABDOMEN/PELVIS WITHOUT CONTRAST Normal [facility] CT Abdomen and Pelvis WO con [...] unremarkable. Kidneys: Severe atrophy of the bilateral [place] kidney is without hydronephrosis. Right lower quadrant [...] unremarkable. Kidneys: Severe atrophy of the bilateral [place] kidney is without hydronephrosis. Right lower quadrant [...] the middle lobe. Trace left pleural effusion. [facility] Radiology Study observation (narrative) [facility] HEPATIC FUNCTION PANELon Albumin [Mass/Vol] 3.5 g/dL Normal 3.5-5.0 [facility] Comment on above: Performed By: #### C HM7, HFP, MGO ####[facility] (DEFAULT)[address] [place] [address] ALP [Catalytic activity/Vol] 73 U/L Normal 32-126 [facility] Comment on above: Performed By: #### C HM7, HFP, MGO ####[facility] (DEFAULT)[address] [place] [address] ALT [Catalytic activity/Vol] 7 U/L Low 10-52 [facility] Comment on above: Performed By: #### C HM7, HFP, MGO ####[facility] (DEFAULT)[address] [place] [address] AST [Catalytic activity/Vol] 25 U/L Normal 10-39 [facility] Comment on above: Performed By: #### C HM7, HFP, MGO ####[facility] (DEFAULT)[address] [place] [address] Bilirubin [Mass/Vol] 1.8 mg/dL High <1.5 [facility] Comment on above: Performed By: #### C HM7, HFP, MGO ####[facility] (DEFAULT)[address] [place] [address] Bilirubin.indirect [Mass/Vol] 0.3 mg/dL High <0.3 [facility] Comment on above: Performed By: #### C HM7, HFP, MGO ####[facility] (DEFAULT)[address] [place] [address] Protein [Mass/Vol] 6.0 g/dL Low 6.4-8.3 [facility] Comment on above: Performed By: #### C HM7, HFP, MGO ####[facility] (DEFAULT)[address] [place] [address] Albumin [Mass/Vol] 3.5 g/dL 3.5 - 5.0 g/dL [facility] ALP [Catalytic activity/Vol] 73 U/L 32 - 126 U/L [facility] ALT [Catalytic activity/Vol] 7 U/L Low 10 - 52 U/L [facility] AST [Catalytic activity/Vol] 25 U/L 10 - 39 U/L [facility] Bilirubin [Mass/Vol] 1.8 mg/dL High NINF - 1.5 mg/dL [facility] Bilirubin.direct [Mass/Vol] 0.3 mg/dL High NINF - 0.3 mg/dL [facility] Protein [Mass/Vol] 6.0 g/dL Low 6.4 - 8.3 g/dL [facility] HISTOPLASMA AND BLASTOMYCES ANTIGEN, ENZYME IMMUNOASSAY, SERMon 01-17-2024 Histoplasma/Blastomy antonia Ag Result Not detected Normal Not Detected [facility] Comment on above: Result Comment: No a ntigen from Histoplasma or Blastomyces detected. Falsenegative results may occur depending on extent of disease,and/or site of infection. Repeat testing on a new specimenif clinically indicated. Performed By: #### H CORAL ####[facility] (DEFAULT)[address] [address] Histoplasma/Blastomy antonia Ag Value Not detected Normal [facility] Comment on above: Result Comment: ---- ADDITIONAL INFORMATION This test was developed and its performance characteristicsdetermined by [facility] in a manner consistent with CLIArequirements. This test has not been cleared or approved bythe U.S. Food and Drug Administration.Test Performed by:[facility] - [address] [address]Dqc Director: Rosendo Bose M.D. Ph.D.; CLIA# [id number] Performed By: #### H CORAL ####[facility] (DEFAULT)[address] [address] MAGNESIUMon 01-17-2024 Magnesium [Mass/Vol] 1.7 mg/dL Normal 1.6-2.6 [facility] Comment on above: Performed By: #### C HM7, HFP, MGO ####[facility] (DEFAULT)[address] [place] [address] Interpretation and review of laboratory results Normal [facility] Magnesium [Mass/Vol] 1.7 mg/dL 1.6 - 2 .6 mg/dL [facility] No Panel Informationon 01-17 Interpretation and review of laboratory results Abnormal [facility] PT,INR,PTTon 01-17-2024 aPTT Coag (PPP) [Time] 29.9 s [facility] INR Coag (Bld) [Relative time] 1.1 {INR} 0.9 - 1.1 [facility] Interpretation and review of laboratory results Abnormal [facility] PT Coag (PPP) [Time] 14.5 s High [facility] aPTT Coag (Bld) [Time] 29.9 s Normal 24.0-34.3 [facility] Comment on above: Performed By: #### P TPTT ####[facility] (DEFAULT)[address] [place] [address] INR Coag (PPP) [Relative time] 1.1 {INR} Normal 0.9-1.1 [facility] Comment on above: Performed By: #### P TPTT ####[facility] (DEFAULT)[address] [place] [address] PT Coag (PPP) [Time] 14.5 s High 11.9-14.2 [facility] Comment on above: Performed By: #### P TPTT ####[facility] (DEFAULT)[address] [place] [address] B-TYPE NATRIURETIC PEPTIDE ( BRAIN)on 01-16-2024 Interpretation and review of laboratory results Abnormal [facility] Natriuretic peptide B (Bld) [Mass/Vol] 212 pg/mL High 0 - 100 pg/mL [facility] Natriuretic peptide B (Bld) [Mass/Vol] 212 pg/mL High 0-100 [facility] Comment on above: Performed By: #### B NECK BAND SETTER ####[facility] (DEFAULT)[address] [place] [address] CALCIUMon 01-16-2024 Calcium [Mass/Vol] 8.5 mg/dL Low 8.6-10.5 [facility] Comment on above: Performed By: #### C A, CHM7, IPB, MGO, HFP ####[facility] (DEFAULT)[address] [place] [address] Calcium [Mass/Vol] 8.5 mg/dL Low 8.6 - 10. 5 mg/dL [facility] DARYL AURIS SCREEN BY PCRo n 01-16-2024 Daryl auris Screen by PCR Not detected Normal Not Detected [facility] Comment on above: Order Comment: This test was performed using a real-time PCR assay. This test was developed, and its performance characteristics determined by [facility]. It has not been cleared or approved by the FDA. The laboratory is regulated under CLIA as qualified to perform high-complexity testing. This test is used for clinical purposes. It should not be regarded as investigational or for research. Performed By: #### C ANDIDA AURIS SCREEN BY PCR ####[facility] (DEFAULT)[address] [place] [address] CBC AND ELECTRONIC DIFFon Abs Baso Auto < Normal 0.00-0.09 [facility] Comment on above: Performed By: #### L [id number] ####[facility] (DEFAULT)[address] [place] [address] Basophils/100 WBC (Bld) 0.6 % Normal [facility] Comment on above: Performed By: #### L [id number] ####[facility] (DEFAULT)[address] [place] [address] DIFF STATUS Electronic Differential Normal [facility] Comment on above: Performed By: #### L [id number] ####[facility] (DEFAULT)[address] [facility] [place] [address] Eosinophils (Bld) [#/Vol] 0.09 10*3/uL Normal 0.00-0.48 [facility] Comment on above: Performed By: #### L [id number] ####[facility] (DEFAULT)[address] [place] [address], [place] [address] Eosinophils/100 WBC (Bld) 2.5 % Normal [facility] Comment on above: Performed By: #### L [id number] ####[facility] (DEFAULT)[address] [place] [address], [place] [address] Hematocrit (Bld) [Volume fraction] 37.4 % Low 39.6-48.8 [facility] Comment on above: Performed By: #### L [id number] ####[facility] (DEFAULT)[address] [place] [address], [place] [address] Hemoglobin (Bld) [Mass/Vol] 12.1 g/dL Low 13.4-16.8 [facility] Comment on above: Performed By: #### L AB980 ####[facility] (DEFAULT)[address] [facility] [place] [address] Immature Grans % 0.3 % Normal [facility] Comment on above: Performed By: #### L [id number] ####[facility] (DEFAULT)[address] [place] [address], [place] [address] Immature Grans Absolute < Normal <=0.07 [facility] Comment on above: Performed By: #### L [id number] ####[facility] (DEFAULT)[address] [place] [address], [place] [address] Lymphocytes (Bld) [#/Vol] 1.16 10*3/uL Normal 0.83-3.57 [facility] Comment on above: Performed By: #### L [id number] ####[facility] (DEFAULT)[address] [place] [address] Lymphocytes/100 WBC (Bld) 32.0 % Normal [facility] Comment on above: Performed By: #### L [id number] ####[facility] (DEFAULT)[address] [place] [address] MCV (RBC) [Entitic vol] 87.8 fL Normal 79.0-94.5 [facility] Comment on above: Performed By: #### L [id number] ####[facility] (DEFAULT)[address] [place] [address] Mean Cell Hgb 28.4 pg Normal 26.1-33.3 [facility] Comment on above: Performed By: #### L [id number] ####[facility] (DEFAULT)[address] [facility] [place] [address] Mean Cell Hgb Conc 32.4 g/dL Normal 31.9-36.5 [facility] Comment on above: Performed By: #### L [id number] ####[facility] (DEFAULT)[address] [facility] [place] [address] Monocytes (Bld) [#/Vol] 0.43 10*3/uL Normal 0.24-0.93 [facility] Comment on above: Performed By: #### L AB980 ####[facility] (DEFAULT)[address] [facility] [place] [address] Monocytes/100 WBC (Bld) 11.9 % Normal [facility] Comment on above: Performed By: #### L [id number] ####[facility] (DEFAULT)[address] [facility] [place] [address] Nucleated RBC 0.0 /100 WBC Normal <=0.2 [facility] Comment on above: Performed By: #### L [id number] ####[facility] (DEFAULT)[address] [facility] [place] [address] Platelet mean volume (Bld) [Entitic vol] 10.1 fL Normal 8.7-12.3 [facility] Comment on above: Performed By: #### L [id number] ####[facility] (DEFAULT)[address] [place] [address] Platelets (Bld) [#/Vol] 155 10*3/uL Normal 146-337 [facility] Comment on above: Performed By: #### L [id number] ####[facility] (DEFAULT)[address] [facility] [place] [address] RBC (Bld) [#/Vol] 4.26 10*6/uL Low 4.38-5.83 [facility] Comment on above: Performed By: #### L [id number] ####[facility] (DEFAULT)[address] [facility] [place] [address] RBC Distribution 14.0 % Normal 10.9-14.3 [facility] Comment on above: Performed By: #### L [id number] ####[facility] (DEFAULT)[address] [facility] [place] [address] Segs + Bands Auto 52.7 % Normal [facility] Comment on above: Performed By: #### L [id number] ####[facility] (DEFAULT)[address] [facility] [place] [address] Segs + Bands,Absolute Auto 1.91 K/uL Normal 1.57-6.19 [facility] Comment on above: Performed By: #### L [id number] ####[facility] (DEFAULT)[address] [facility] [place] [address] WBC (Bld) [#/Vol] 3.62 10*3/uL Low 3.73-10.10 [facility] Comment on above: Performed By: #### L [id number] ####[facility] (DEFAULT)[address] [facility] [place] [address] Basophils (Bld) [#/Vol] K/uL 0.00 - 0.09 K/uL [facility] Basophils/100 WBC (Bld) 0.6 % [facility] Differential cell count method Nom (Bld) Electronic Differential [facility] Eosinophils (Bld) [#/Vol] 0.09 10*3/uL 0.00 - 0.48 K/uL [facility] Eosinophils/100 WBC (Bld) 2.5 % [facility] Erythrocyte distribution width (RBC) [Ratio] 14.0 % 10.9 - 14.3 % [facility] Hematocrit (Bld) [Volume fraction] 37.4 % Low 39.6 - 48.8 % [facility] Hemoglobin (Bld) [Mass/Vol] 12.1 g/dL Low 13.4 - 16.8 g/dL [facility] Immature granulocytes (Bld) [#/Vol] K/uL NINF - 0.07 K/uL [facility] Immature granulocytes/100 WBC (Bld) 0.3 % [facility] Interpretation and review of laboratory results Abnormal [facility] Lymphocytes (Bld) [#/Vol] 1.16 10*3/uL 0.83 - 3.57 K/uL [facility] Lymphocytes/100 WBC (Bld) 32.0 % [facility] MCH (RBC) [Entitic mass] 28.4 pg 26.1 - 33.3 pg [facility] MCHC (RBC) [Mass/Vol] 32.4 g/dL 31.9 - 36.5 g/dL [facility] MCV (RBC) [Entitic vol] 87.8 fL 79.0 - 94.5 fL [facility] Monocytes (Bld) [#/Vol] 0.43 10*3/uL 0.24 - 0.93 K/uL [facility] Monocytes/100 WBC (Bld) 11.9 % [facility] Neutrophils (Bld) [#/Vol] 1.91 10*3/uL 1.57 - 6.19 K/uL [facility] Nucleated RBC/100 WBC (Bld) [Ratio] 0.0 % NINF [facility] Platelet mean volume (Bld) [Entitic vol] 10.1 fL 8.7 - 12.3 fL [facility] Platelets (Bld) [#/Vol] 155 10*3/uL 146 - 337 K/uL [facility] RBC (Bld) [#/Vol] 4.26 10*6/uL Low [facility] Segmented neutrophils/100 WBC (Bld) 52.7 % [facility] WBC (Bld) [#/Vol] 3.62 10*3/uL Low 3.73 - 10. 10 K/uL [facility] CHEM 7 (LYTES,BUN,CREA,GLUC) on 01-16-2024 Anion gap [Moles/Vol] 11 mmol/L Normal 7-17 [facility] Comment on above: Performed By: #### C Tray, CHM7, IPB, MGO, HFP ####[facility] (DEFAULT)[address] [facility] [place] [address] Chloride [Moles/Vol] 108 mmol/L Normal 98-108 [facility] Comment on above: Performed By: #### C Tray, CHM7, IPB, MGO, HFP ####[facility] (DEFAULT)[address] [facility] [place] [address] CO2 [Moles/Vol] 24 mmol/L Normal 21-31 [facility] Comment on above: Performed By: #### C Tray, CHM7, IPB, MGO, HFP ####[facility] (DEFAULT)[address] [facility] [place] [address] Creatinine [Mass/Vol] 1.04 mg/dL Normal 0.70-1.30 [facility] Comment on above: Performed By: #### C A, CHM7, IPB, MGO, HFP ####[facility] (DEFAULT)[address] [facility] [place] [address] GFR/1.73 sq M.predicted among non-blacks MDRD (S/P/Bld) [Vol rate/Area] 86 mL/min/{1.73_m2} Normal >=60 [facility] Comment on above: Result Comment: Repo rted eGFR is based on the CKD-EPI 2020 equation using creatinine, age, and sex. Performed By: #### C A, CHM7, IPB, MGO, HFP ####[facility] (DEFAULT)[address] [place] [address] Glucose [Mass/Vol] 95 mg/dL Normal 70-99 [facility] Comment on above: Performed By: #### Chinedu Feliz, CHM7, IPB, MGO, HFP ####[facility] (DEFAULT)[address] [place] [address] Osmolality [Osmolality] 293 mosm/kg Normal 278-305 [facility] Comment on above: Performed By: #### C A, CHM7, IPB, MGO, HFP ####[facility] (DEFAULT)[address] [place] [address] Potassium [Moles/Vol] 4.0 mmol/L Normal 3.5-5.0 [facility] Comment on above: Performed By: #### C A, CHM7, IPB, MGO, HFP ####[facility] (DEFAULT)[address] [place] [address] Sodium [Moles/Vol] 139 mmol/L Normal 135-145 [facility] Comment on above: Performed By: #### C A, CHM7, IPB, MGO, HFP ####[facility] (DEFAULT)[address] [place] [address] Urea nitrogen [Mass/Vol] 19 mg/dL Normal 7-25 [facility] Comment on above: Performed By: #### C A, CHM7, IPB, MGO, HFP ####[facility] (DEFAULT)[address] [place] [address] Urea nitrogen/Creatinine [Mass ratio] 18 mg/mg Normal [facility] Comment on above: Performed By: #### C A, CHM7, IPB, MGO, HFP ####[facility] (DEFAULT)[address] [place] [address] Anion gap [Moles/Vol] 11 mmol/L 7 - 17 mmol/L [facility] Chloride [Moles/Vol] 108 mmol/L 98 - 10 8 mmol/L [facility] CO2 [Moles/Vol] 24 mmol/L 21 - 31 mmol/L [facility] Creatinine [Mass/Vol] 1.04 mg/dL 0.70 - 1.30 mg/dL [facility] eGFR, CKD-EPI, Male 86 - PINF [facility] Comment on above: Reported eGFR is bas ed on the CKD-EPI 2020 equation using creatinine, age, and sex. Glucose [Mass/Vol] 95 mg/dL 70 - 99 mg/dL [facility] Osmolality Calc [Osmolality] 293 [facility] Potassium [Moles/Vol] 4.0 mmol/L 3.5 - 5.0 mmol/L [facility] Sodium [Moles/Vol] 139 mmol/L 135 - 145 mmol/L [facility] Urea nitrogen [Mass/Vol] 19 mg/dL 7 - 25 mg/dL [facility] Urea nitrogen/Creatinine [Mass ratio] 18 mg/mg [facility] D-DIMER,QUANTITATIVEon 01-16 D-Dimer, High Sensitivity 0.67 mcg/mL FEU High <0.50 [facility] Comment on above: Result Comment: The D-Dimer assay is intended for use in conjuction with a clinical pretest probability (PTP) assessment model to exclude pulmonary embolism (PE) and as an aid in the diagnosis of Deep Vein Thrombosis (DVT) in outpatients suspected of PE or DVT. For the assay in use at [facility] a cutoff of <0.50 mcg/mL has a Negative Predictive Value of 99.7% for exclusion of DVT in low and moderate PTP patients. Performed By: #### P TPTT, HSDDI ####[facility] (DEFAULT)[address] [facility] [place] [address] D-DIMER,QUANTITATIVEOrdered By: Shaji Kelly on 01-16-2024 Fibrin D-dimer FEU (PPP) [Mass/Vol] 0.67 High [facility] Comment on above: The D-Dimer assay is intended for use in conjuction with a clinical pretest probability (PTP) assessment model to exclude pulmonary embolism (PE) and as an aid in the diagnosis of Deep Vein Thrombosis (DVT) in outpatients suspected of PE or DVT. For the assay in use at [facility] a cutoff of <0.50 mcg/mL has a Negative Predictive Value of 99.7% for exclusion of DVT in low and moderate PTP patients. Interpretation and review of laboratory results Abnormal [facility] HEPATIC FUNCTION PANELon Albumin [Mass/Vol] 3.7 g/dL Normal 3.5-5.0 [facility] Comment on above: Performed By: #### C Tray, CHM7, IPB, MGO, HFP ####[facility] (DEFAULT)[address] [place] [address] ALP [Catalytic activity/Vol] 70 U/L Normal 32-126 [facility] Comment on above: Performed By: #### C A, CHM7, IPB, MGO, HFP ####[facility] (DEFAULT)[address] [facility] [place] [address] ALT [Catalytic activity/Vol] 8 U/L Low 10-52 [facility] Comment on above: Performed By: #### C A, CHM7, IPB, MGO, HFP ####[facility] (DEFAULT)[address] [facility] [place] [address] AST [Catalytic activity/Vol] 21 U/L Normal 10-39 [facility] Comment on above: Performed By: #### C A, CHM7, IPB, MGO, HFP ####[facility] (DEFAULT)[address] [facility] [place] [address] Bilirubin [Mass/Vol] 1.9 mg/dL High <1.5 [facility] Comment on above: Performed By: #### Chinedu Feliz, CHM7, IPB, MGO, HFP ####[facility] (DEFAULT)[address] [facility] [place] [address] Bilirubin.indirect [Mass/Vol] 0.4 mg/dL High <0.3 [facility] Comment on above: Performed By: #### Chinedu Feliz, CHM7, IPB, MGO, HFP ####[facility] (DEFAULT)[address] [facility] [place] [address] Protein [Mass/Vol] 6.1 g/dL Low 6.4-8.3 [facility] Comment on above: Performed By: #### Chinedu Feliz, CHM7, IPB, MGO, HFP ####[facility] (DEFAULT)[address] [facility] [place] [address] Albumin [Mass/Vol] 3.7 g/dL 3.5 - 5.0 g/dL [facility] ALP [Catalytic activity/Vol] 70 U/L 32 - 126 U/L [facility] ALT [Catalytic activity/Vol] 8 U/L Low 10 - 52 U/L [facility] AST [Catalytic activity/Vol] 21 U/L 10 - 39 U/L [facility] Bilirubin [Mass/Vol] 1.9 mg/dL High NINF - 1.5 mg/dL [facility] Bilirubin.direct [Mass/Vol] 0.4 mg/dL High NINF - 0.3 mg/dL [facility] Protein [Mass/Vol] 6.1 g/dL Low 6.4 - 8.3 g/dL [facility] MAGNESIUMon 01-16-2024 Magnesium [Mass/Vol] 1.7 mg/dL Normal 1.6-2.6 [facility] Comment on above: Performed By: #### C A, CHM7, IPB, MGO, HFP ####[facility] (DEFAULT)[address] [place] [address] Magnesium [Mass/Vol] 1.7 mg/dL 1.6 - 2 .6 mg/dL [facility] No Panel Informationon 01-16 Interpretation and review of laboratory results Abnormal [facility] Interpretation and review of laboratory results Normal [facility] PHOSPHATE, INORGANICon 01-16 Phosphorous 4.1 mg/dL Normal 2.2-4.6 [facility] Comment on above: Performed By: #### C A, CHM7, IPB, MGO, HFP ####[facility] (DEFAULT)[address] [place] [address] Phosphate [Mass/Vol] 4.1 mg/dL 2.2 - 4 .6 mg/dL [facility] PT,INR,PTTon 01-16-2024 aPTT Coag (Bld) [Time] 29.6 s Normal 24.0-34.3 [facility] Comment on above: Performed By: #### P TPTT, HSDDI ####[facility] (DEFAULT)[address] [place] [address] INR Coag (PPP) [Relative time] 1.2 {INR} High 0.9-1.1 [facility] Comment on above: Performed By: #### P TPTT, HSDDI ####[facility] (DEFAULT)[address] [place] [address] PT Coag (PPP) [Time] 14.9 s High 11.9-14.2 [facility] Comment on above: Performed By: #### P TPTT, HSDDI ####[facility] (DEFAULT)[address] [place] [address] aPTT Coag (PPP) [Time] 29.6 s [facility] INR Coag (Bld) [Relative time] 1.2 {INR} High 0.9 - 1.1 [facility] Interpretation and review of laboratory results Abnormal [facility] PT Coag (PPP) [Time] 14.9 s High [facility] TACROLIMUS LEVEL, TROUGH (UT E DRUG LEVEL)Ordered By: Jimy Castillo on 01-16-2024 Interpretation and review of laboratory results Normal [facility] Tacrolimus (Bld) [Mass/Vol] 5.7 ng/mL Bone Marrow Transplant: 4.0-12.0, Therapeutic: 5.0-15.0 [facility] Method performed is a chemiluminescent microparticle immunoasssay on the [employer] Mapping i2000. The range is based on experience at [facility] and users should be aware that target concentrations vary widely depending on concomitant therapy, time post-transplant, and desired degree of immunosuppression. [facility] TACROLIMUS LEVEL, TROUGH (UT E DRUG LEVEL)on 01-16-2024 Tacrolimus, Trough 5.7 ng/mL Normal Bone Susana ow Transplant: 4.0-12.0, Therapeutic: 5.0-15.0 [facility] Comment on above: Order Comment: Pleas e draw at specified interval PRIOR to dose. Do not hold dose to wait for level. Specimens batched twice per day, (M-F) and once per day weekendsMethod performed is a chemiluminescent microparticle immunoasssay on the [employer] M[employer] i2000.The range is based on experience at [facility] and users should be aware that target concentrations vary widely depending on concomitant therapy, time post-transplant, and desired degree of immunosuppression. Performed By: #### T ACRO ####[facility] (DEFAULT)[address] [place] [address] US ABDOMEN LIVER DOPPLERon 0 01-16-2024 US ABDOMEN LIVER DOPPLER Normal [facility] US.doppler Abdominal vessels on 01-16-2024 IMPRESSION: [...] pleural effusion. Trace right upper quadrant ascites. [facility] Radiology Study observation (narrative) [facility] US.doppler Abdominal vessels Ordered By: Iona Duran on 01-16-2024 [facility] Work Phone: XR CHEST PA AND LATERAL 2 EWSon 01-16-2024 XR CHEST PA AND LATERAL 2 VIEWS Normal [facility] XR Chest PA and Lateralon IMPRESSION: [...] Normal IMPRESSION IMPRESSION: Moderate right pleural effusion. [facility] Radiology Study observation (narrative) [facility] XR Chest PA and LateralOrder ed By: Daisha Patterson on 01-16-2024 [facility] Work Phone: ALL CBC WITH AUTO DIFFon BASOPHILS ABSOLUTE AUTO 0.0 [facility] Basophils/100 WBC (Bld) 0.5 % 0.2 - 2.0 % [facility] Eosinophils/100 WBC (Bld) 2.8 % 0.9 - 7.0 % [facility] Erythrocyte distribution width (RBC) [Ratio] 13.8 % 11.0 - 15.0 % [facility] Hematocrit (Bld) [Volume fraction] 43.7 % 42.0 - 54.0 % [facility] Hemoglobin (Bld) [Mass/Vol] 14.0 g/dL 14.0 - 18.0 g/dL [facility] IMMATURE GRANULOCYTES ABS AUTO 0.01 [facility] Immature granulocytes/100 WBC (Bld) 0.3 % 0.0 - 0.5 % [facility] LYMPHOCYTES ABSOLUTE AUTO 1.5 [facility] Lymphocytes/100 WBC (Bld) 37.5 % 20.5 - 60.0 % [facility] MCH (RBC) [Entitic mass] 28.4 pg 25.9 - 34.0 pg [facility] MCHC (RBC) [Mass/Vol] 32.0 g/dL 29.9 - 35.2 g/dL [facility] MCV (RBC) [Entitic vol] 88.6 fL 80.0 - 94.0 fL [facility] MONOCYTES ABSOLUTE AUTO 0.5 [facility] Monocytes/100 WBC (Bld) 11.9 % 1.7 - 12.0 % [facility] NEUTROPHILS ABSOLUTE AUTO 1.9 [facility] Neutrophils/100 WBC (Bld) 47.0 % 43.0 - 75.0 % [facility] Platelet mean volume (Bld) [Entitic vol] 10.3 fL 9.5 - 13.5 fL [facility] EO # 0.1 [facility] PLT 180 [facility] RBC 4.93 [facility] WBC 4.0 [facility] ALL CBC WITH AUTO DIFFon BASOPHILS ABSOLUTE AUTO 0.0 [facility] Basophils/100 WBC (Bld) 0.5 % 0.2 - 2.0 % [facility] Eosinophils/100 WBC (Bld) 2.6 % 0.9 - 7.0 % [facility] Erythrocyte distribution width (RBC) [Ratio] 13.5 % 11.0 - 15.0 % [facility] Hematocrit (Bld) [Volume fraction] 43.8 % 42.0 - 54.0 % [facility] Hemoglobin (Bld) [Mass/Vol] 14.0 g/dL 14.0 - 18.0 g/dL [facility] IMMATURE GRANULOCYTES ABS AUTO 0.00 [facility] Immature granulocytes/100 WBC (Bld) 0.0 % 0.0 - 0.5 % [facility] Interpretation and review of laboratory results Abnormal [facility] LYMPHOCYTES ABSOLUTE AUTO 1.8 [facility] Lymphocytes/100 WBC (Bld) 45.2 % 20.5 - 60.0 % [facility] MCH (RBC) [Entitic mass] 27.9 pg 25.9 - 34.0 pg [facility] MCHC (RBC) [Mass/Vol] 32.0 g/dL 29.9 - 35.2 g/dL [facility] MCV (RBC) [Entitic vol] 87.4 fL 80.0 - 94.0 fL [facility] MONOCYTES ABSOLUTE AUTO 0.4 [facility] Monocytes/100 WBC (Bld) 9.6 % 1.7 - 12.0 % [facility] NEUTROPHILS ABSOLUTE AUTO 1.6 [facility] Neutrophils/100 WBC (Bld) 42.1 % Low 43.0 - 75.0 % [facility] Platelet mean volume (Bld) [Entitic vol] 9.8 fL 9.5 - 13.5 fL [facility] EO # 0.1 [facility] PLT 180 [facility] RBC 5.01 [facility] WBC 3.9 Low [facility] CHEM 7 (LYTES,BUN,CREA,GLUC) on 09-11-2023 Anion gap [Moles/Vol] 13 mmol/L Normal 7-17 [facility] Comment on above: Performed By: #### NATHANIEL RAMÍREZ ####[facility] (DEFAULT)[address] [facility] [place] [address] Chloride [Moles/Vol] 111 mmol/L High 98-108 [facility] Comment on above: Performed By: #### NATHANIEL RAMÍREZ ####[facility] (DEFAULT)[address] [facility] [place] [address] CO2 [Moles/Vol] 20 mmol/L Low 21-31 [facility] Comment on above: Performed By: #### TJ RAMÍREZ7 ####[facility] (DEFAULT)[address] [facility] [place] [address] Creatinine [Mass/Vol] 1.13 mg/dL Normal 0.70-1.30 [facility] Comment on above: Performed By: #### NATHANIEL RAMÍREZ ####[facility] (DEFAULT)[address] [place] [address] GFR/1.73 sq M.predicted among non-blacks MDRD (S/P/Bld) [Vol rate/Area] 78 mL/min/{1.73_m2} Normal >=60 [facility] Comment on above: Result Comment: Repo rted eGFR is based on the CKD-EPI 2020 equation using creatinine, age, and sex. Performed By: #### NATHANIEL RAMÍREZ ####[facility] (DEFAULT)[address] [facility] [place] [address] Glucose [Mass/Vol] 109 mg/dL High 70-99 [facility] Comment on above: Performed By: #### TJ RAMÍREZ7 ####[facility] (DEFAULT)[address] [place] [address], [place] [address] Osmolality [Osmolality] 295 mosm/kg Normal 278-305 [facility] Comment on above: Performed By: #### TJ RAMÍREZ7 ####[facility] (DEFAULT)[address] [facility] [place] [address] Potassium [Moles/Vol] 4.3 mmol/L Normal 3.5-5.0 [facility] Comment on above: Performed By: #### Rod BLOOM, CHM7 ####[facility] (DEFAULT)[address] [place] [address] Sodium [Moles/Vol] 140 mmol/L Normal 135-145 [facility] Comment on above: Performed By: #### Rod BLOOM CHM7 ####[facility] (DEFAULT)[address] [facility] [place] [address] Urea nitrogen [Mass/Vol] 16 mg/dL Normal 7-25 [facility] Comment on above: Performed By: #### Rod BLOOM, CHM7 ####[facility] (DEFAULT)[address] [facility] [place] [address] Urea nitrogen/Creatinine [Mass ratio] 14 mg/mg Normal [facility] Comment on above: Performed By: #### Rod BLOOM CHM7 ####[facility] (DEFAULT)[address] [facility] [place] [address] Anion gap [Moles/Vol] 13 mmol/L 7 - 17 mmol/L [facility] Chloride [Moles/Vol] 111 mmol/L High 98 - 10 8 mmol/L [facility] CO2 [Moles/Vol] 20 mmol/L Low 21 - 31 mmol/L [facility] Creatinine [Mass/Vol] 1.13 mg/dL 0.70 - 1.30 mg/dL [facility] eGFR, CKD-EPI, Male 78 - PINF [facility] Glucose [Mass/Vol] 109 mg/dL High 70 - 99 mg/dL [facility] Interpretation and review of laboratory results Abnormal [facility] Osmolality Calc [Osmolality] 295 [facility] Potassium [Moles/Vol] 4.3 mmol/L 3.5 - 5.0 mmol/L [facility] Sodium [Moles/Vol] 140 mmol/L 135 - 145 mmol/L [facility] Urea nitrogen [Mass/Vol] 16 mg/dL 7 - 25 mg/dL [facility] Urea nitrogen/Creatinine [Mass ratio] 14 mg/mg [facility] GLUCOSE POCon 09-11-2023 Glucose [Mass/Vol] 108 mg/dL High 70 - 99 mg/dL [facility] Interpretation and review of laboratory results Abnormal [facility] POC Sample Type [facility] Legionella sp identified Org specific cx Nom (Unsp spec)on 09-11-2023 Bacteria identified Cx Nom (Unsp spec) NO GROWTH DAY 7 OF 7 [facility] MAGNESIUMon 09-11-2023 Magnesium [Mass/Vol] 1.6 mg/dL Normal 1.6-2.6 [facility] Comment on above: Performed By: #### M [facility] ####[facility] (DEFAULT)[address] [place] [address] Interpretation and review of laboratory results Normal [facility] Magnesium [Mass/Vol] 1.6 mg/dL 1.6 - 2 .6 mg/dL [facility] No Panel Informationon 09-11 [facility] TACROLIMUS LEVEL, TROUGH (UT E DRUG LEVEL)on 09-11-2023 Interpretation and review of laboratory results Normal [facility] Tacrolimus (Bld) [Mass/Vol] 11.5 ng/mL [facility] Tacrolimus, Trough 11.5 ng/mL Normal Bone Susana ow Transplant: 4.0-12.0, Therapeutic: 5.0-15.0 [facility] Comment on above: Order Comment: Pleas e draw at specified interval PRIOR to dose. Do not hold dose to wait for level. Specimens batched twice per day, (M-) and once per day weekendsMethod performed is a chemiluminescent microparticle immunoasssay on the [employer] Supervisor Mapping i2000.The range is based on experience at [facility] and users should be aware that target concentrations vary widely depending on concomitant therapy, time post-transplant, and desired degree of immunosuppression. Performed By: #### T ACRO ####[facility] (DEFAULT)[address] [place] [address] CBC,PLATELETSon 09-10-2023 Hematocrit (Bld) [Volume fraction] 40.0 % Normal 39.6-48.8 [facility] Comment on above: Performed By: #### H EMOGC ####[facility] (DEFAULT)[address] [facility] [place] [address] Hemoglobin (Bld) [Mass/Vol] 12.7 g/dL Low 13.4-16.8 [facility] Comment on above: Performed By: #### H EMOGC ####[facility] (DEFAULT)[address] [facility] [place] [address] MCV (RBC) [Entitic vol] 86.0 fL Normal 79.0-94.5 [facility] Comment on above: Performed By: #### H EMOGC ####[facility] (DEFAULT)[address] [facility] [place] [address] Mean Cell Hgb 27.3 pg Normal 26.1-33.3 [facility] Comment on above: Performed By: #### H EMOGC ####[facility] (DEFAULT)[address] [facility] [place] [address] Mean Cell Hgb Conc 31.8 g/dL Low 31.9-36.5 [facility] Comment on above: Performed By: #### H EMOGC ####[facility] (DEFAULT)[address] [facility] [place] [address] Platelet mean volume (Bld) [Entitic vol] 9.5 fL Normal 8.7-12.3 [facility] Comment on above: Performed By: #### H EMOGC ####[facility] (DEFAULT)[address] [place] [address] Platelets (Bld) [#/Vol] 225 10*3/uL Normal 146-337 [facility] Comment on above: Performed By: #### [facility] ####[facility] (DEFAULT)[address] [place] [address] RBC (Bld) [#/Vol] 4.65 10*6/uL Normal 4.38-5.83 [facility] Comment on above: Performed By: #### H EMO ####[facility] (DEFAULT)[address] [place] [address] RBC Distribution 13.9 % Normal 10.9-14.3 [facility] Comment on above: Performed By: #### H EMO ####[facility] (DEFAULT)[address] [place] [address] WBC (Bld) [#/Vol] 6.52 10*3/uL Normal 3.73-10.10 [facility] Comment on above: Performed By: #### [facility] ####[facility] (DEFAULT)[address] [place] [address] Erythrocyte distribution width (RBC) [Ratio] 13.9 % 10.9 - 14.3 % [facility] Hematocrit (Bld) [Volume fraction] 40.0 % 39.6 - 48.8 % [facility] Hemoglobin (Bld) [Mass/Vol] 12.7 g/dL Low 13.4 - 16.8 g/dL [facility] Interpretation and review of laboratory results Abnormal [facility] MCH (RBC) [Entitic mass] 27.3 pg 26.1 - 33.3 pg [facility] MCHC (RBC) [Mass/Vol] 31.8 g/dL Low 31.9 - 36.5 g/dL [facility] MCV (RBC) [Entitic vol] 86.0 fL 79.0 - 94.5 fL [facility] Platelet mean volume (Bld) [Entitic vol] 9.5 fL 8.7 - 12.3 fL [facility] Platelets (Bld) [#/Vol] 225 10*3/uL 146 - 337 K/uL [facility] RBC (Bld) [#/Vol] 4.65 10*6/uL [facility] WBC (Bld) [#/Vol] 6.52 10*3/uL 3.73 - 10. 10 K/uL [facility] CHEM 7 (LYTES,BUN,CREA,GLUC) on 09-10-2023 Anion gap [Moles/Vol] 13 mmol/L Normal 7-17 [facility] Comment on above: Performed By: #### NATHANIEL RAMÍREZ, HFP ####[facility] (DEFAULT)[address] [facility] [place] [address] Chloride [Moles/Vol] 111 mmol/L High 98-108 [facility] Comment on above: Performed By: #### NATHANIEL RAMÍREZ, HFP ####[facility] (DEFAULT)[address] [facility] [place] [address] CO2 [Moles/Vol] 20 mmol/L Low 21-31 [facility] Comment on above: Performed By: #### NATHANIEL RAMÍREZ, HFP ####[facility] (DEFAULT)[address] [facility] [place] [address] Creatinine [Mass/Vol] 1.27 mg/dL Normal 0.70-1.30 [facility] Comment on above: Performed By: #### NATHANIEL RAMÍREZ, HFP ####[facility] (DEFAULT)[address] [facility] [place] [address] GFR/1.73 sq M.predicted among non-blacks MDRD (S/P/Bld) [Vol rate/Area] 68 mL/min/{1.73_m2} Normal >=60 [facility] Comment on above: Result Comment: Repo rted eGFR is based on the CKD-EPI 2020 equation using creatinine, age, and sex. Performed By: #### NATHANIEL RAMÍREZ, HFP ####[facility] (DEFAULT)[address] [place] [address] Glucose [Mass/Vol] 100 mg/dL High 70-99 [facility] Comment on above: Performed By: #### NATHANIEL RAMÍREZ, HFP ####[facility] (DEFAULT)[address] [place] [address] Osmolality [Osmolality] 293 mosm/kg Normal 278-305 [facility] Comment on above: Performed By: #### NATHANIEL RAMÍREZ, HFP ####[facility] (DEFAULT)[address] [place] [address] Potassium [Moles/Vol] 4.4 mmol/L Normal 3.5-5.0 [facility] Comment on above: Performed By: #### NATHANIEL RAMÍREZ, HFP ####[facility] (DEFAULT)[address] [place] [address] Sodium [Moles/Vol] 140 mmol/L Normal 135-145 [facility] Comment on above: Performed By: #### NATHANIEL RAMÍREZ, HFP ####[facility] (DEFAULT)[address] [place] [address] Urea nitrogen [Mass/Vol] 12 mg/dL Normal 7-25 [facility] Comment on above: Performed By: #### NATHANIEL RAMÍREZ, HFP ####[facility] (DEFAULT)[address] [place] [address] Urea nitrogen/Creatinine [Mass ratio] 9 mg/mg Normal [facility] Comment on above: Performed By: #### NATHANIEL RAMÍREZ, HFP ####[facility] (DEFAULT)[address] [place] [address] Anion gap [Moles/Vol] 13 mmol/L 7 - 17 mmol/L [facility] Chloride [Moles/Vol] 111 mmol/L High 98 - 10 8 mmol/L [facility] CO2 [Moles/Vol] 20 mmol/L Low 21 - 31 mmol/L [facility] Creatinine [Mass/Vol] 1.27 mg/dL 0.70 - 1.30 mg/dL [facility] eGFR, CKD-EPI, Male 69 - PINF [facility] Glucose [Mass/Vol] 100 mg/dL High 70 - 99 mg/dL [facility] O[facility]ality [facility] [[facility]olality] [facility] Potassium [Moles/Vol] 4.4 mmol/L 3.5 - 5.0 mmol/L [facility] Sodium [Moles/Vol] 140 mmol/L 135 - 145 mmol/L [facility] Urea nitrogen [Mass/Vol] 12 mg/dL 7 - 25 mg/dL [facility] Urea nitrogen/Creatinine [Mass ratio] 9 mg/mg [facility] HEPATIC FUNCTION PANELon Albumin [Mass/Vol] 3.3 g/dL Low 3.5-5.0 [facility] Comment on above: Performed By: #### M TJ BLOOM7, HFP ####[facility] (DEFAULT)[address] [place] [address] ALP [Catalytic activity/Vol] 143 U/L High 32-126 [facility] Comment on above: Performed By: #### M HELEN BLOOMM7, HFP ####[facility] (DEFAULT)[address] [place] [address] ALT [Catalytic activity/Vol] 28 U/L Normal 10-52 [facility] Comment on above: Performed By: #### M MERLE CHM7, HFP ####[facility] (DEFAULT)[address] [place] [address] AST [Catalytic activity/Vol] 29 U/L Normal 10-39 [facility] Comment on above: Performed By: #### M MERLE CHM7, HFP ####[facility] (DEFAULT)[address] [place] [address] Bilirubin [Mass/Vol] 0.9 mg/dL Normal <1.5 [facility] Comment on above: Performed By: #### M NATHANIEL BLOOM, HFP ####[facility] (DEFAULT)[address] [facility] [place] [address] Bilirubin.indirect [Mass/Vol] 0.2 mg/dL Normal <0.3 [facility] Comment on above: Performed By: #### M NATHANIEL BLOOM, HFP ####[facility] (DEFAULT)[address] [facility] [place] [address] Protein [Mass/Vol] 6.8 g/dL Normal 6.4-8.3 [facility] Comment on above: Performed By: #### NATHANIEL RAMÍREZ, HFP ####[facility] (DEFAULT)[address] [place] [address] Albumin [Mass/Vol] 3.3 g/dL Low 3.5 - 5.0 g/dL [facility] ALP [Catalytic activity/Vol] 143 U/L High 32 - 126 U/L [facility] ALT [Catalytic activity/Vol] 28 U/L 10 - 52 U/L [facility] AST [Catalytic activity/Vol] 29 U/L 10 - 39 U/L [facility] Bilirubin [Mass/Vol] 0.9 mg/dL [facility] Bilirubin.direct [Mass/Vol] 0.2 mg/dL NINF - 0.3 mg/dL [facility] Protein [Mass/Vol] 6.8 g/dL 6.4 - 8.3 g/dL [facility] MAGNESIUMon 09-10-2023 Magnesium [Mass/Vol] 1.9 mg/dL Normal 1.6-2.6 [facility] Comment on above: Performed By: #### NATHANIEL RAMÍREZ, HFP ####[facility] (DEFAULT)[address] [place] [address] Interpretation and review of laboratory results Normal [facility] Magnesium [Mass/Vol] 1.9 mg/dL 1.6 - 2 .6 mg/dL [facility] No Panel Informationon 09-10 Interpretation and review of laboratory results Abnormal [facility] TACROLIMUS LEVEL, TROUGH (UT E DRUG LEVEL)Ordered By: Jimy Castillo on 09-10-2023 Interpretation and review of laboratory results Normal [facility] Tacrolimus (Bld) [Mass/Vol] 11.8 ng/mL [facility] TACROLIMUS LEVEL, TROUGH (UT E DRUG LEVEL)on 09-10-2023 Tacrolimus, Trough 11.8 ng/mL Normal [facility] Transplant: 4.0-12.0, Therapeutic: 5.0-15.0 [facility] Comment on above: Order Comment: Pleas e draw at specified interval PRIOR to dose. Do not hold dose to wait for level. Specimens batched twice per day, (M-F) and once per day weekendsMethod performed is a chemiluminescent microparticle immunoasssay on the [employer] M[employer] i2000.The range is based on experience at [facility] and users should be aware that target concentrations vary widely depending on concomitant therapy, time post-transplant, and desired degree of immunosuppression. Performed By: #### T ACRO ####[facility] (DEFAULT)[address] [place] [address] CHEM 7 (LYTES,BUN,CREA,GLUC) on 09-09-2023 Anion gap [Moles/Vol] 14 mmol/L Normal 7-17 [facility] Comment on above: Performed By: #### M CASTRO BLOOMB, CHM7 ####[facility] (DEFAULT)[address] [place] [address] Chloride [Moles/Vol] 113 mmol/L High 98-108 [facility] Comment on above: Performed By: #### M MERLE IPB, CHM7 ####[facility] (DEFAULT)[address] [place] [address] CO2 [Moles/Vol] 18 mmol/L Low 21-31 [facility] Comment on above: Performed By: #### JO ANN RAMÍREZ CHM7 ####[facility] (DEFAULT)[address] [place] [address] Creatinine [Mass/Vol] 1.03 mg/dL Normal 0.70-1.30 [facility] Comment on above: Performed By: #### JO ANN RAMÍREZ CHM7 ####[facility] (DEFAULT)[address] [place] [address] GFR/1.73 sq M.predicted among non-blacks MDRD (S/P/Bld) [Vol rate/Area] 87 mL/min/{1.73_m2} Normal >=60 [facility] Comment on above: Result Comment: Repo rted eGFR is based on the CKD-EPI 2020 equation using creatinine, age, and sex. Performed By: #### JO ANN RAMÍREZ CHM7 ####[facility] (DEFAULT)[address] [facility] [place] [address] Glucose [Mass/Vol] 106 mg/dL High 70-99 [facility] Comment on above: Performed By: #### JO ANN RAMÍREZ CHRod7 ####[facility] (DEFAULT)[address] [place] [address] Osmolality [Osmolality] 294 mosm/kg Normal 278-305 [facility] Comment on above: Performed By: #### JO ANN RAMÍREZ CHMJessica ####[facility] (DEFAULT)[address] [place] [address] Potassium [Moles/Vol] 4.0 mmol/L Normal 3.5-5.0 [facility] Comment on above: Performed By: #### JO ANN RAMÍREZ CHM7 ####[facility] (DEFAULT)[address] [place] [address] Sodium [Moles/Vol] 141 mmol/L Normal 135-145 [facility] Comment on above: Performed By: #### M JO ANN BLOOM, CHM7 ####[facility] (DEFAULT)[address] [facility] [place] [address] Urea nitrogen [Mass/Vol] 10 mg/dL Normal 7-25 [facility] Comment on above: Performed By: #### JO ANN RAMÍREZ, CHM7 ####[facility] (DEFAULT)[address] [facility] [place] [address] Urea nitrogen/Creatinine [Mass ratio] 10 mg/mg Normal [facility] Comment on above: Performed By: #### M JO ANN BLOOM, CHM7 ####[facility] (DEFAULT)[address] [facility] [place] [address] Anion gap [Moles/Vol] 14 mmol/L 7 - 17 mmol/L [facility] Chloride [Moles/Vol] 113 mmol/L High 98 - 10 8 mmol/L [facility] CO2 [Moles/Vol] 18 mmol/L Low 21 - 31 mmol/L [facility] Creatinine [Mass/Vol] 1.03 mg/dL 0.70 - 1.30 mg/dL [facility] eGFR, CKD-EPI, Male 87 - PINF [facility] Glucose [Mass/Vol] 106 mg/dL High 70 - 99 mg/dL [facility] Interpretation and review of laboratory results Abnormal [facility] Osmolality Calc [Osmolality] 294 [facility] Potassium [Moles/Vol] 4.0 mmol/L 3.5 - 5.0 mmol/L [facility] Sodium [Moles/Vol] 141 mmol/L 135 - 145 mmol/L [facility] Urea nitrogen [Mass/Vol] 10 mg/dL 7 - 25 mg/dL [facility] Urea nitrogen/Creatinine [Mass ratio] 10 mg/mg [facility] MAGNESIUMon 09-09-2023 Magnesium [Mass/Vol] 1.6 mg/dL Normal 1.6-2.6 [facility] Comment on above: Performed By: #### M JO ANN BLOOM, HELENM7 ####[facility] (DEFAULT)[address] [place] [address] Magnesium [Mass/Vol] 1.6 mg/dL 1.6 - 2 .6 mg/dL [facility] No Panel Informationon 09-09 Interpretation and review of laboratory results Normal [facility] PHOSPHATE, INORGANICon 09-09 Phosphorous 3.8 mg/dL Normal 2.2-4.6 [facility] Comment on above: Performed By: #### M JO ANN BLOOM CHM7 ####[facility] (DEFAULT)[address] [place] [address] Phosphate [Mass/Vol] 3.8 mg/dL 2.2 - 4 .6 mg/dL [facility] TACROLIMUS LEVEL, TROUGH (UT E DRUG LEVEL)on 09-09-2023 Interpretation and review of laboratory results Normal [facility] Tacrolimus (Bld) [Mass/Vol] 9.2 ng/mL [facility] Tacrolimus, Trough 9.2 ng/mL Normal [facility] Susana [facility] Transplant: 4.0-12.0, Therapeutic: 5.0-15.0 [facility] Comment on above: Order Comment: Pleas e draw at specified interval PRIOR to dose. Do not hold dose to wait for level. Specimens batched twice per day, (M-F) and once per day weekendsMethod performed is a chemiluminescent microparticle immunoasssay on the [employer] M[employer] i2000.The range is based on experience at [facility] and users should be aware that target concentrations vary widely depending on concomitant therapy, time post-transplant, and desired degree of immunosuppression. Performed By: #### T ACRO ####[facility] (DEFAULT)[address] [place] [address] CBC,PLATELETSon 09-08-2023 Hematocrit (Bld) [Volume fraction] 36.1 % Low 39.6-48.8 [facility] Comment on above: Performed By: #### H EMOGC ####[facility] (DEFAULT)[address] [facility] [place] [address] Hemoglobin (Bld) [Mass/Vol] 11.6 g/dL Low 13.4-16.8 [facility] Comment on above: Performed By: #### H EMOGC ####[facility] (DEFAULT)[address] [facility] [place] [address] MCV (RBC) [Entitic vol] 85.1 fL Normal 79.0-94.5 [facility] Comment on above: Performed By: #### H EMOGC ####[facility] (DEFAULT)[address] [facility] [place] [address] Mean Cell Hgb 27.4 pg Normal 26.1-33.3 [facility] Comment on above: Performed By: #### H EMOGC ####[facility] (DEFAULT)[address] [facility] [place] [address] Mean Cell Hgb Conc 32.1 g/dL Normal 31.9-36.5 [facility] Comment on above: Performed By: #### H EMOGC ####[facility] (DEFAULT)[address] [facility] [place] [address] Platelet mean volume (Bld) [Entitic vol] 9.5 fL Normal 8.7-12.3 [facility] Comment on above: Performed By: #### H EMOGC ####[facility] (DEFAULT)[address] [facility] [place] [address] Platelets (Bld) [#/Vol] 182 10*3/uL Normal 146-337 [facility] Comment on above: Performed By: #### H EMOGC ####[facility] (DEFAULT)[address] [facility] [place] [address] RBC (Bld) [#/Vol] 4.24 10*6/uL Low 4.38-5.83 [facility] Comment on above: Performed By: #### [facility] ####[facility] (DEFAULT)[address] [facility] [place] [address] RBC Distribution 13.6 % Normal 10.9-14.3 [facility] Comment on above: Performed By: #### H [facility] ####[facility] (DEFAULT)[address] [place] [address] WBC (Bld) [#/Vol] 4.59 10*3/uL Normal 3.73-10.10 [facility] Comment on above: Performed By: #### [facility] ####[facility] (DEFAULT)[address] [facility] [place] [address] Erythrocyte distribution width (RBC) [Ratio] 13.6 % 10.9 - 14.3 % [facility] Hematocrit (Bld) [Volume fraction] 36.1 % Low 39.6 - 48.8 % [facility] Hemoglobin (Bld) [Mass/Vol] 11.6 g/dL Low 13.4 - 16.8 g/dL [facility] Interpretation and review of laboratory results Abnormal [facility] MCH (RBC) [Entitic mass] 27.4 pg 26.1 - 33.3 pg [facility] MCHC (RBC) [Mass/Vol] 32.1 g/dL 31.9 - 36.5 g/dL [facility] MCV (RBC) [Entitic vol] 85.1 fL 79.0 - 94.5 fL [facility] Platelet mean volume (Bld) [Entitic vol] 9.5 fL 8.7 - 12.3 fL [facility] Platelets (Bld) [#/Vol] 182 10*3/uL 146 - 337 K/uL [facility] RBC (Bld) [#/Vol] 4.24 10*6/uL Low [facility] WBC (Bld) [#/Vol] 4.59 10*3/uL 3.73 - 10. 10 K/uL [facility] CHEM 7 (LYTES,BUN,CREA,GLUC) on 09-08-2023 Anion gap [Moles/Vol] 12 mmol/L Normal 7-17 [facility] Comment on above: Performed By: #### M GO, IPB, HFP, CHM7 ####[facility] (DEFAULT)[address] [place] [address] Chloride [Moles/Vol] 113 mmol/L High 98-108 [facility] Comment on above: Performed By: #### M GO, IPB, HFP, CHM7 ####[facility] (DEFAULT)[address] [facility] [place] [address] CO2 [Moles/Vol] 21 mmol/L Normal 21-31 [facility] Comment on above: Performed By: #### M GO, IPB, HFP, CHM7 ####[facility] (DEFAULT)[address] [facility] [place] [address] Creatinine [Mass/Vol] 1.14 mg/dL Normal 0.70-1.30 [facility] Comment on above: Performed By: #### M GO, IPB, HFP, CHM7 ####[facility] (DEFAULT)[address] [facility] [place] [address] GFR/1.73 sq M.predicted among non-blacks MDRD (S/P/Bld) [Vol rate/Area] 77 mL/min/{1.73_m2} Normal >=60 [facility] Comment on above: Result Comment: Repo rted eGFR is based on the CKD-EPI 2020 equation using creatinine, age, and sex. Performed By: #### M GO, IPB, HFP, CHM7 ####[facility] (DEFAULT)[address] [facility] [place] [address] Glucose [Mass/Vol] 107 mg/dL High 70-99 [facility] Comment on above: Performed By: #### M GO, IPB, HFP, CHM7 ####[facility] (DEFAULT)[address] [facility] [place] [address] Osmolality [Osmolality] 296 mosm/kg Normal 278-305 [facility] Comment on above: Performed By: #### M MERLE, IPB, HFP, CHM7 ####[facility] (DEFAULT)[address] [place] [address] Potassium [Moles/Vol] 3.9 mmol/L Normal 3.5-5.0 [facility] Comment on above: Performed By: #### M GO, IPB, HFP, CHM7 ####[facility] (DEFAULT)[address] [facility] [place] [address] Sodium [Moles/Vol] 142 mmol/L Normal 135-145 [facility] Comment on above: Performed By: #### M MERLE, IPB, HFP, CHM7 ####[facility] (DEFAULT)[address] [facility] [place] [address] Urea nitrogen [Mass/Vol] 11 mg/dL Normal 7-25 [facility] Comment on above: Performed By: #### M MERLE, IPB, HFP, CHM7 ####[facility] (DEFAULT)[address] [facility] [place] [address] Urea nitrogen/Creatinine [Mass ratio] 10 mg/mg Normal [facility] Comment on above: Performed By: #### M MERLE, IPB, HFP, CHM7 ####[facility] (DEFAULT)[address] [facility] [place] [address] Anion gap [Moles/Vol] 12 mmol/L 7 - 17 mmol/L [facility] Chloride [Moles/Vol] 113 mmol/L High 98 - 10 8 mmol/L [facility] CO2 [Moles/Vol] 21 mmol/L 21 - 31 mmol/L [facility] Creatinine [Mass/Vol] 1.14 mg/dL 0.70 - 1.30 mg/dL [facility] eGFR, CKD-EPI, Male 77 - [facility]F [facility] Glucose [Mass/Vol] 107 mg/dL High 70 - 99 mg/dL [facility] Osmolality Calc [Osmolality] 296 [facility] Potassium [Moles/Vol] 3.9 mmol/L 3.5 - 5.0 mmol/L [facility] Sodium [Moles/Vol] 142 mmol/L 135 - 145 mmol/L [facility] Urea nitrogen [Mass/Vol] 11 mg/dL 7 - 25 mg/dL [facility] Urea nitrogen/Creatinine [Mass ratio] 10 mg/mg [facility] HEPATIC FUNCTION PANELon Albumin [Mass/Vol] 2.9 g/dL Low 3.5-5.0 [facility] Comment on above: Performed By: #### M GO, IPB, HFP, CHM7 ####[facility] (DEFAULT)[address] [facility] [place] [address] ALP [Catalytic activity/Vol] 133 U/L High 32-126 [facility] Comment on above: Performed By: #### M GO, IPB, HFP, CHM7 ####[facility] (DEFAULT)[address] [facility] [place] [address] ALT [Catalytic activity/Vol] 23 U/L Normal 10-52 [facility] Comment on above: Performed By: #### M GO, IPB, HFP, CHM7 ####[facility] (DEFAULT)[address] [facility] [place] [address] AST [Catalytic activity/Vol] 23 U/L Normal 10-39 [facility] Comment on above: Performed By: #### M GO, IPB, HFP, CHM7 ####[facility] (DEFAULT)[address] [facility] [place] [address] Bilirubin [Mass/Vol] 0.8 mg/dL Normal <1.5 [facility] Comment on above: Performed By: #### M GO, IPB, HFP, CHM7 ####[facility] (DEFAULT)[address] [facility] [place] [address] Bilirubin.indirect [Mass/Vol] 0.2 mg/dL Normal <0.3 [facility] Comment on above: Performed By: #### M JO ANN BLOOM, TAVO, CHM7 ####[facility] (DEFAULT)[address] [facility] [place] [address] Protein [Mass/Vol] 5.9 g/dL Low 6.4-8.3 [facility] Comment on above: Performed By: #### M JO ANN BLOOM, TAVO, CHM7 ####[facility] (DEFAULT)[address] [facility] [place] [address] Albumin [Mass/Vol] 2.9 g/dL Low 3.5 - 5.0 g/dL [facility] ALP [Catalytic activity/Vol] 133 U/L High 32 - 126 U/L [facility] ALT [Catalytic activity/Vol] 23 U/L 10 - 52 U/L [facility] AST [Catalytic activity/Vol] 23 U/L 10 - 39 U/L [facility] Bilirubin [Mass/Vol] 0.8 mg/dL [facility] mg/dL [facility] Bilirubin.direct [Mass/Vol] 0.2 mg/dL NINF - 0.3 mg/dL [facility] Protein [Mass/Vol] 5.9 g/dL Low 6.4 - 8.3 g/dL [facility] MAGNESIUMon 09-08-2023 Magnesium [Mass/Vol] 1.8 mg/dL Normal 1.6-2.6 [facility] Comment on above: Performed By: #### M JO ANN BLOOM, TAVO, CHM7 ####[facility] (DEFAULT)[address] [facility] [place] [address] Interpretation and review of laboratory results Normal [facility] Magnesium [Mass/Vol] 1.8 mg/dL 1.6 - 2 .6 mg/dL [facility] No Panel Informationon 09-08 Interpretation and review of laboratory results Abnormal [facility] PHOSPHATE, INORGANICon 09-08 Interpretation and review of laboratory results Normal [facility] Phosphate [Mass/Vol] 4.1 mg/dL 2.2 - 4 .6 mg/dL [facility] Phosphorous 4.1 mg/dL Normal 2.2-4.6 [facility] Comment on above: Performed By: #### M GO, IPB, HFP, CHM7 ####[facility] (DEFAULT)[address] [place] [address] TACROLIMUS LEVEL, TROUGH (UT E DRUG LEVEL)on 09-08-2023 Interpretation and review of laboratory results Normal [facility] Tacrolimus (Bld) [Mass/Vol] 8.5 ng/mL [facility] Tacrolimus, Trough 8.5 ng/mL Normal Bone Susana ow Transplant: 4.0-12.0, Therapeutic: 5.0-15.0 [facility] Comment on above: Order Comment: Pleas e draw at specified interval PRIOR to dose. Do not hold dose to wait for level. Specimens batched twice per day, (M-) and once per day weekendsMethod performed is a chemiluminescent microparticle immunoasssay on the [employer] i2000.The range is based on experience at [facility] and users should be aware that target concentrations vary widely depending on concomitant therapy, time post-transplant, and desired degree of immunosuppression. Performed By: #### T ACRO ####[facility] (DEFAULT)[address] [place] [address] CBC,PLATELETSon 09-07-2023 Hematocrit (Bld) [Volume fraction] 37.1 % Low 39.6-48.8 [facility] Comment on above: Performed By: #### [facility] ####[facility] (DEFAULT)[address] [facility] [place] [address] Hemoglobin (Bld) [Mass/Vol] 11.9 g/dL Low 13.4-16.8 [facility] Comment on above: Performed By: #### H EMOGC ####[facility] (DEFAULT)[address] [facility] [place] [address] MCV (RBC) [Entitic vol] 86.5 fL Normal 79.0-94.5 [facility] Comment on above: Performed By: #### H EMOGC ####[facility] (DEFAULT)[address] [facility] [place] [address] Mean Cell Hgb 27.7 pg Normal 26.1-33.3 [facility] Comment on above: Performed By: #### H EMOGC ####[facility] (DEFAULT)[address] [facility] [place] [address] Mean Cell Hgb Conc 32.1 g/dL Normal 31.9-36.5 [facility] Comment on above: Performed By: #### H EMO ####[facility] (DEFAULT)[address] [facility] [place] [address] Platelet mean volume (Bld) [Entitic vol] 9.6 fL Normal 8.7-12.3 [facility] Comment on above: Performed By: #### H EMOGC ####[facility] (DEFAULT)[address] [place] [address] Platelets (Bld) [#/Vol] 176 10*3/uL Normal 146-337 [facility] Comment on above: Performed By: #### H EMOGC ####[facility] (DEFAULT)[address] [facility] [place] [address] RBC (Bld) [#/Vol] 4.29 10*6/uL Low 4.38-5.83 [facility] Comment on above: Performed By: #### H EMOGC ####[facility] (DEFAULT)[address] [facility] [place] [address] RBC Distribution 13.5 % Normal 10.9-14.3 [facility] Comment on above: Performed By: #### [facility] ####[facility] (DEFAULT)[address] [place] [address] WBC (Bld) [#/Vol] 4.10 10*3/uL Normal 3.73-10.10 [facility] Comment on above: Performed By: #### [facility] ####[facility] (DEFAULT)[address] [place] [address] Erythrocyte distribution width (RBC) [Ratio] 13.5 % 10.9 - 14.3 % [facility] Hematocrit (Bld) [Volume fraction] 37.1 % Low 39.6 - 48.8 % [facility] Hemoglobin (Bld) [Mass/Vol] 11.9 g/dL Low 13.4 - 16.8 g/dL [facility] Interpretation and review of laboratory results Abnormal [facility] MCH (RBC) [Entitic mass] 27.7 pg 26.1 - 33.3 pg [facility] MCHC (RBC) [Mass/Vol] 32.1 g/dL 31.9 - 36.5 g/dL [facility] MCV (RBC) [Entitic vol] 86.5 fL 79.0 - 94.5 fL [facility] Platelet mean volume (Bld) [Entitic vol] 9.6 fL 8.7 - 12.3 fL [facility] Platelets (Bld) [#/Vol] 176 10*3/uL 146 - 337 K/uL [facility] RBC (Bld) [#/Vol] 4.29 10*6/uL Low [facility] WBC (Bld) [#/Vol] 4.10 10*3/uL 3.73 - 10. 10 K/uL [facility] CHEM 7 (LYTES,BUN,CREA,GLUC) on 09-07-2023 Anion gap [Moles/Vol] 13 mmol/L Normal 7-17 [facility] Comment on above: Performed By: #### C HM7, IPB, MGO, HFP ####[facility] (DEFAULT)[address] [facility] [place] [address] Chloride [Moles/Vol] 113 mmol/L High 98-108 [facility] Comment on above: Performed By: #### C HM7, IPB, MGO, HFP ####[facility] (DEFAULT)[address] [facility] [place] [address] CO2 [Moles/Vol] 19 mmol/L Low 21-31 [facility] Comment on above: Performed By: #### C HM7, IPB, MGO, HFP ####[facility] (DEFAULT)[address] [facility] [place] [address] Creatinine [Mass/Vol] 1.22 mg/dL Normal 0.70-1.30 [facility] Comment on above: Performed By: #### C HM7, IPB, MGO, HFP ####[facility] (DEFAULT)[address] [place] [address] GFR/1.73 sq M.predicted among non-blacks MDRD (S/P/Bld) [Vol rate/Area] 71 mL/min/{1.73_m2} Normal >=60 [facility] Comment on above: Result Comment: Repo rted eGFR is based on the CKD-EPI 2020 equation using creatinine, age, and sex. Performed By: #### C HM7, IPB, MGO, HFP ####[facility] (DEFAULT)[address] [place] [address], [place] [address] Glucose [Mass/Vol] 107 mg/dL High 70-99 [facility] Comment on above: Performed By: #### C HM7, IPB, MGO, HFP ####[facility] (DEFAULT)[address] [facility] [place] [address] Osmolality [Osmolality] 295 mosm/kg Normal 278-305 [facility] Comment on above: Performed By: #### C HM7, IPB, MGO, HFP ####[facility] (DEFAULT)[address] [place] [address] Potassium [Moles/Vol] 3.9 mmol/L Normal 3.5-5.0 [facility] Comment on above: Performed By: #### C HM7, IPB, MGO, HFP ####[facility] (DEFAULT)[address] [address] Sodium [Moles/Vol] 141 mmol/L Normal 135-145 [facility] Comment on above: Performed By: #### C HM7, IPB, MGO, HFP ####[facility] (DEFAULT)[address] [facility] [place] [address] Urea nitrogen [Mass/Vol] 13 mg/dL Normal 7-25 [facility] Comment on above: Performed By: #### C HM7, IPB, MGO, HFP ####[facility] (DEFAULT)[address] [facility] [place] [address] Urea nitrogen/Creatinine [Mass ratio] 11 mg/mg Normal [facility] Comment on above: Performed By: #### C HM7, IPB, MGO, HFP ####[facility] (DEFAULT)[address] [facility] [place] [address] Anion gap [Moles/Vol] 13 mmol/L 7 - 17 mmol/L [facility] Chloride [Moles/Vol] 113 mmol/L High 98 - 10 8 mmol/L [facility] CO2 [Moles/Vol] 19 mmol/L Low 21 - 31 mmol/L [facility] Creatinine [Mass/Vol] 1.22 mg/dL 0.70 - 1.30 mg/dL [facility] eGFR, CKD-EPI, Male 72 - PINF [facility] Glucose [Mass/Vol] 107 mg/dL High 70 - 99 mg/dL [facility]olality] [facility] Potassium [Moles/Vol] 3.9 mmol/L 3.5 - 5.0 mmol/L [facility] Sodium [Moles/Vol] 141 mmol/L 135 - 145 mmol/L [facility] Urea nitrogen [Mass/Vol] 13 mg/dL 7 - 25 mg/dL [facility] Urea nitrogen/Creatinine [Mass ratio] 11 mg/mg [facility] HEPATIC FUNCTION PANELon Albumin [Mass/Vol] 2.9 g/dL Low 3.5-5.0 [facility] Comment on above: Performed By: #### C HM7, IPB, MGO, HFP ####[facility] (DEFAULT)[address] [place] [address] ALP [Catalytic activity/Vol] 111 U/L Normal 32-126 [facility] Comment on above: Performed By: #### C HM7, IPB, MGO, HFP ####[facility] (DEFAULT)[address] [place] [address] ALT [Catalytic activity/Vol] 18 U/L Normal 10-52 [facility] Comment on above: Performed By: #### C HM7, IPB, MGO, HFP ####[facility] (DEFAULT)[address] [place] [address] AST [Catalytic activity/Vol] 23 U/L Normal 10-39 [facility] Comment on above: Performed By: #### C HM7, IPB, MGO, HFP ####[facility] (DEFAULT)[address] [place] [address] Bilirubin [Mass/Vol] 0.8 mg/dL Normal <1.5 [facility] Comment on above: Performed By: #### C HM7, IPB, MGO, HFP ####[facility] (DEFAULT)[address] [place] [address] Bilirubin.indirect [Mass/Vol] 0.3 mg/dL High <0.3 [facility] Comment on above: Performed By: #### C HM7, IPB, MGO, HFP ####[facility] (DEFAULT)[address] [facility] [place] [address] Protein [Mass/Vol] 6.0 g/dL Low 6.4-8.3 [facility] Comment on above: Performed By: #### C JO ANN MEDLEY MGO, HFP ####[facility] (DEFAULT)[address] [facility] [place] [address] Albumin [Mass/Vol] 2.9 g/dL Low 3.5 - 5.0 g/dL [facility] ALP [Catalytic activity/Vol] 111 U/L 32 - 126 U/L [facility] ALT [Catalytic activity/Vol] 18 U/L 10 - 52 U/L [facility] AST [Catalytic activity/Vol] 23 U/L 10 - 39 U/L [facility] Bilirubin [Mass/Vol] 0.8 mg/dL NINF - 1.5 mg/dL [facility] Bilirubin.direct [Mass/Vol] 0.3 mg/dL High NINF - 0.3 mg/dL [facility] Protein [Mass/Vol] 6.0 g/dL Low 6.4 - 8.3 g/dL [facility] MAGNESIUMon 09-07-2023 Magnesium [Mass/Vol] 1.7 mg/dL Normal 1.6-2.6 [facility] Comment on above: Performed By: #### C JO ANN MEDLEY MGO, HFP ####[facility] (DEFAULT)[address] [place] [address] Interpretation and review of laboratory results Normal [facility] Magnesium [Mass/Vol] 1.7 mg/dL 1.6 - 2 .6 mg/dL [facility] No Panel Informationon 09-07 Interpretation and review of laboratory results Abnormal [facility] PHOSPHATE, INORGANICon 09-07 Phosphorous 4.4 mg/dL Normal 2.2-4.6 [facility] Comment on above: Performed By: #### C JO ANN MEDLEY, MGO, HFP ####[facility] (DEFAULT)[address] [place] [address] Interpretation and review of laboratory results Normal [facility] Phosphate [Mass/Vol] 4.4 mg/dL 2.2 - 4 .6 mg/dL [facility] TACROLIMUS LEVEL, TROUGH (UT E DRUG LEVEL)Ordered By: Elizabeth Maldonado on 09-07-2023 Interpretation and review of laboratory results Normal [facility] Tacrolimus (Bld) [Mass/Vol] 7.8 ng/mL [facility] TACROLIMUS LEVEL, TROUGH (UT E DRUG LEVEL)on 09-07-2023 Tacrolimus, Trough 7.8 ng/mL Normal [facility] Susana ow Transplant: 4.0-12.0, Therapeutic: 5.0-15.0 [facility] Comment on above: Order Comment: Pleas e draw at specified interval PRIOR to dose. Do not hold dose to wait for level. Specimens batched twice per day, (M-F) and once per day weekendsMethod performed is a chemiluminescent microparticle immunoasssay on the [employer] Mapping i2000.The range is based on experience at [facility] and users should be aware that target concentrations vary widely depending on concomitant therapy, time post-transplant, and desired degree of immunosuppression. Performed By: #### T ACRO ####[facility] (DEFAULT)[address] [place] [address] CBC,PLATELETSon 09-06-2023 Hematocrit (Bld) [Volume fraction] 38.4 % Low 39.6-48.8 [facility] Comment on above: Performed By: #### [facility] ####[facility] (DEFAULT)[address] [place] [address] Hemoglobin (Bld) [Mass/Vol] 11.9 g/dL Low 13.4-16.8 [facility] Comment on above: Performed By: #### H EMO ####[facility] (DEFAULT)[address] [place] [address] MCV (RBC) [Entitic vol] 85.9 fL Normal 79.0-94.5 [facility] Comment on above: Performed By: #### H EMOGC ####[facility] (DEFAULT)[address] [place] [address] Mean Cell Hgb 26.6 pg Normal 26.1-33.3 [facility] Comment on above: Performed By: #### H EMOGC ####[facility] (DEFAULT)[address] [facility] [place] [address] Mean Cell Hgb Conc 31.0 g/dL Low 31.9-36.5 [facility] Comment on above: Performed By: #### H EMOGC ####[facility] (DEFAULT)[address] [facility] [place] [address] Platelet mean volume (Bld) [Entitic vol] 9.7 fL Normal 8.7-12.3 [facility] Comment on above: Performed By: #### H EMOGC ####[facility] (DEFAULT)[address] [facility] [place] [address] Platelets (Bld) [#/Vol] 181 10*3/uL Normal 146-337 [facility] Comment on above: Performed By: #### H EMOGC ####[facility] (DEFAULT)[address] [facility] [place] [address] RBC (Bld) [#/Vol] 4.47 10*6/uL Normal 4.38-5.83 [facility] Comment on above: Performed By: #### H EMOGC ####[facility] (DEFAULT)[address] [facility] [place] [address] RBC Distribution 13.4 % Normal 10.9-14.3 [facility] Comment on above: Performed By: #### H EMOGC ####[facility] (DEFAULT)[address] [facility] [place] [address] WBC (Bld) [#/Vol] 4.41 10*3/uL Normal 3.73-10.10 [facility] Comment on above: Performed By: #### [facility] ####[facility] (DEFAULT)[address] [place] [address] Erythrocyte distribution width (RBC) [Ratio] 13.4 % 10.9 - 14.3 % [facility] Hematocrit (Bld) [Volume fraction] 38.4 % Low 39.6 - 48.8 % [facility] Hemoglobin (Bld) [Mass/Vol] 11.9 g/dL Low 13.4 - 16.8 g/dL [facility] Interpretation and review of laboratory results Abnormal [facility] MCH (RBC) [Entitic mass] 26.6 pg 26.1 - 33.3 pg [facility] MCHC (RBC) [Mass/Vol] 31.0 g/dL Low 31.9 - 36.5 g/dL [facility] MCV (RBC) [Entitic vol] 85.9 fL 79.0 - 94.5 fL [facility] Platelet mean volume (Bld) [Entitic vol] 9.7 fL 8.7 - 12.3 fL [facility] Platelets (Bld) [#/Vol] 181 10*3/uL 146 - 337 K/uL [facility] RBC (Bld) [#/Vol] 4.47 10*6/uL [facility] WBC (Bld) [#/Vol] 4.41 10*3/uL 3.73 - 10. 10 K/uL [facility] CHEM 7 (LYTES,BUN,CREA,GLUC) on 09-06-2023 Anion gap [Moles/Vol] 14 mmol/L 7 - 17 mmol/L [facility] Chloride [Moles/Vol] 109 mmol/L High 98 - 10 8 mmol/L [facility] CO2 [Moles/Vol] 19 mmol/L Low 21 - 31 mmol/L [facility] Creatinine [Mass/Vol] 1.26 mg/dL 0.70 - 1.30 mg/dL [facility] eGFR, CKD-EPI, Male 70 - PINF [facility] Glucose [Mass/Vol] 114 mg/dL High 70 - 99 mg/dL [facility] Osmolality Calc [Osmolality] 291 [facility] Potassium [Moles/Vol] 4.1 mmol/L 3.5 - 5.0 mmol/L [facility] Sodium [Moles/Vol] 138 mmol/L 135 - 145 mmol/L [facility] Urea nitrogen [Mass/Vol] 16 mg/dL 7 - 25 mg/dL [facility] Urea nitrogen/Creatinine [Mass ratio] 13 mg/mg [facility] Anion gap [Moles/Vol] 14 mmol/L Normal 7-17 [facility] Comment on above: Performed By: #### NATHANIEL RAMÍREZ, HFP ####[facility] (DEFAULT)[address] [place] [address] Chloride [Moles/Vol] 109 mmol/L High 98-108 [facility] Comment on above: Performed By: #### NATHANIEL RAMÍREZ, HFP ####[facility] (DEFAULT)[address] [place] [address] CO2 [Moles/Vol] 19 mmol/L Low 21-31 [facility] Comment on above: Performed By: #### NATHANIEL RAMÍREZ, HFP ####[facility] (DEFAULT)[address] [place] [address] Creatinine [Mass/Vol] 1.26 mg/dL Normal 0.70-1.30 [facility] Comment on above: Performed By: #### NATHANIEL RAMÍREZ, HFP ####[facility] (DEFAULT)[address] [place] [address] GFR/1.73 sq M.predicted among non-blacks MDRD (S/P/Bld) [Vol rate/Area] 69 mL/min/{1.73_m2} Normal >=60 [facility] Comment on above: Result Comment: Repo rted eGFR is based on the CKD-EPI 2020 equation using creatinine, age, and sex. Performed By: #### NATHANIEL RAMÍREZ, HFP ####[facility] (DEFAULT)[address] [place] [address] Glucose [Mass/Vol] 114 mg/dL High 70-99 [facility] Comment on above: Performed By: #### NATHANIEL RAMÍREZ, HFP ####[facility] (DEFAULT)[address] [place] [address] Osmolality [Osmolality] 291 mosm/kg Normal 278-305 [facility] Comment on above: Performed By: #### NATHANIEL RAMÍREZ, HFP ####[facility] (DEFAULT)[address] [place] [address] Potassium [Moles/Vol] 4.1 mmol/L Normal 3.5-5.0 [facility] Comment on above: Performed By: #### NATHANIEL RAMÍREZ, HFP ####[facility] (DEFAULT)[address] [place] [address] Sodium [Moles/Vol] 138 mmol/L Normal 135-145 [facility] Comment on above: Performed By: #### NATHANIEL RAMÍREZ, HFP ####[facility] (DEFAULT)[address] [place] [address] Urea nitrogen [Mass/Vol] 16 mg/dL Normal 7-25 [facility] Comment on above: Performed By: #### NATHANIEL RAMÍREZ, HFP ####[facility] (DEFAULT)[address] [place] [address] Urea nitrogen/Creatinine [Mass ratio] 13 mg/mg Normal [facility] Comment on above: Performed By: #### NATHANIEL RAMÍREZ, HFP ####[facility] (DEFAULT)[address] [place] [address] HEPATIC FUNCTION PANELon Albumin [Mass/Vol] 3.0 g/dL Low 3.5 - 5.0 g/dL [facility] ALP [Catalytic activity/Vol] 115 U/L 32 - 126 U/L [facility] ALT [Catalytic activity/Vol] 25 U/L 10 - 52 U/L [facility] AST [Catalytic activity/Vol] 31 U/L 10 - 39 U/L [facility] Bilirubin [Mass/Vol] 1.0 mg/dL NINF - 1.5 mg/dL [facility] Bilirubin.direct [Mass/Vol] 0.3 mg/dL High NINF - 0.3 mg/dL [facility] Protein [Mass/Vol] 6.3 g/dL Low 6.4 - 8.3 g/dL [facility] Albumin [Mass/Vol] 3.0 g/dL Low 3.5-5.0 [facility] Comment on above: Performed By: #### TJ RAMÍREZ7, HFP ####[facility] (DEFAULT)[address] [facility] [place] [address] ALP [Catalytic activity/Vol] 115 U/L Normal 32-126 [facility] Comment on above: Performed By: #### Rod BLOOM CHM7, HFP ####[facility] (DEFAULT)[address] [place] [address] ALT [Catalytic activity/Vol] 25 U/L Normal 10-52 [facility] Comment on above: Performed By: #### Rod BLOOM CHM7, HFP ####[facility] (DEFAULT)[address] [facility] [place] [address] AST [Catalytic activity/Vol] 31 U/L Normal 10-39 [facility] Comment on above: Performed By: #### Rod BLOOM CHM7, HFP ####[facility] (DEFAULT)[address] [place] [address] Bilirubin [Mass/Vol] 1.0 mg/dL Normal <1.5 [facility] Comment on above: Performed By: #### NATHANIEL RAMÍREZ, HFP ####[facility] (DEFAULT)[address] [place] [address] Bilirubin.indirect [Mass/Vol] 0.3 mg/dL High <0.3 [facility] Comment on above: Performed By: #### NATHANIEL RAMÍREZ, HFP ####[facility] (DEFAULT)[address] [place] [address] Protein [Mass/Vol] 6.3 g/dL Low 6.4-8.3 [facility] Comment on above: Performed By: #### NATHANIEL RAMÍREZ, HFP ####[facility] (DEFAULT)[address] [place] [address] MAGNESIUMon 09-06-2023 Interpretation and review of laboratory results Normal [facility] Magnesium [Mass/Vol] 2.0 mg/dL 1.6 - 2 .6 mg/dL [facility] Magnesium [Mass/Vol] 2.0 mg/dL Normal 1.6-2.6 [facility] Comment on above: Performed By: #### NATHANIEL RAMÍREZ, HFP ####[facility] (DEFAULT)[address] [place] [address] No Panel Informationon 09-06 Interpretation and review of laboratory results Abnormal [facility] TACROLIMUS LEVEL, TROUGH (UT E DRUG LEVEL)on 09-06-2023 Interpretation and review of laboratory results Normal [facility] Tacrolimus (Bld) [Mass/Vol] 6.7 ng/mL [facility] Tacrolimus, Trough 6.7 ng/mL Normal Bone Susana ow Transplant: 4.0-12.0, Therapeutic: 5.0-15.0 [facility] Comment on above: Order Comment: Pleas e draw at specified interval PRIOR to dose. Do not hold dose to wait for level. Specimens batched twice per day, (M-F) and once per day weekendsMethod performed is a chemiluminescent microparticle immunoasssay on the [employer] M[employer] i2000.The range is based on experience at [facility] and users should be aware that target concentrations vary widely depending on concomitant therapy, time post-transplant, and desired degree of immunosuppression. Performed By: #### T ACRO ####[facility] (DEFAULT)[address] [facility] [place] [address] CBC,PLATELETSon 09-05-2023 Hematocrit (Bld) [Volume fraction] 35.6 % Low 39.6-48.8 [facility] Comment on above: Performed By: #### H EMOGC ####[facility] (DEFAULT)[address] [place] [address], [place] [address] Hemoglobin (Bld) [Mass/Vol] 11.4 g/dL Low 13.4-16.8 [facility] Comment on above: Performed By: #### H EMOGC ####[facility] (DEFAULT)[address] [place] [address], [place] [address] MCV (RBC) [Entitic vol] 86.0 fL Normal 79.0-94.5 [facility] Comment on above: Performed By: #### H EMOGC ####[facility] (DEFAULT)[address] [facility] [place] [address] Mean Cell Hgb 27.5 pg Normal 26.1-33.3 [facility] Comment on above: Performed By: #### H EMOGC ####[facility] (DEFAULT)[address] [place] [address], [place] [address] Mean Cell Hgb Conc 32.0 g/dL Normal 31.9-36.5 [facility] Comment on above: Performed By: #### H EMOGC ####[facility] (DEFAULT)[address] [facility] [place] [address] Platelet mean volume (Bld) [Entitic vol] 10.0 fL Normal 8.7-12.3 [facility] Comment on above: Performed By: #### H EMOGC ####[facility] (DEFAULT)[address] [facility] [place] [address] Platelets (Bld) [#/Vol] 170 10*3/uL Normal 146-337 [facility] Comment on above: Performed By: #### H EMO ####[facility] (DEFAULT)[address] [facility] [place] [address] RBC (Bld) [#/Vol] 4.14 10*6/uL Low 4.38-5.83 [facility] Comment on above: Performed By: #### H EMO ####[facility] (DEFAULT)[address] [facility] [place] [address] RBC Distribution 13.5 % Normal 10.9-14.3 [facility] Comment on above: Performed By: #### [facility] ####[facility] (DEFAULT)[address] [facility] [place] [address] WBC (Bld) [#/Vol] 4.24 10*3/uL Normal 3.73-10.10 [facility] Comment on above: Performed By: #### H [facility] ####[facility] (DEFAULT)[address] [facility] [place] [address] Erythrocyte distribution width (RBC) [Ratio] 13.5 % 10.9 - 14.3 % [facility] Hematocrit (Bld) [Volume fraction] 35.6 % Low 39.6 - 48.8 % [facility] Hemoglobin (Bld) [Mass/Vol] 11.4 g/dL Low 13.4 - 16.8 g/dL [facility] Interpretation and review of laboratory results Abnormal [facility] MCH (RBC) [Entitic mass] 27.5 pg 26.1 - 33.3 pg [facility] MCHC (RBC) [Mass/Vol] 32.0 g/dL 31.9 - 36.5 g/dL [facility] MCV (RBC) [Entitic vol] 86.0 fL 79.0 - 94.5 fL [facility] Platelet mean volume (Bld) [Entitic vol] 10.0 fL 8.7 - 12.3 fL [facility] Platelets (Bld) [#/Vol] 170 10*3/uL 146 - 337 K/uL [facility] RBC (Bld) [#/Vol] 4.14 10*6/uL Low [facility] WBC (Bld) [#/Vol] 4.24 10*3/uL 3.73 - 10. 10 K/uL [facility] CHEM 7 (LYTES,BUN,CREA,GLUC) on 09-05-2023 Anion gap [Moles/Vol] 12 mmol/L Normal 7-17 [facility] Comment on above: Performed By: #### H FP, CHM7, MGO ####[facility] (DEFAULT)[address] [place] [address] Chloride [Moles/Vol] 107 mmol/L Normal 98-108 [facility] Comment on above: Performed By: #### H FP, CHM7, MGO ####[facility] (DEFAULT)[address] [place] [address] CO2 [Moles/Vol] 20 mmol/L Low 21-31 [facility] Comment on above: Performed By: #### H FP, CHM7, MGO ####[facility] (DEFAULT)[address] [place] [address] Creatinine [Mass/Vol] 1.43 mg/dL High 0.70-1.30 [facility] Comment on above: Performed By: #### H FP, CHM7, MGO ####[facility] (DEFAULT)[address] [place] [address] GFR/1.73 sq M.predicted among non-blacks MDRD (S/P/Bld) [Vol rate/Area] 59 mL/min/{1.73_m2} Low >=60 [facility] Comment on above: Result Comment: Repo rted eGFR is based on the CKD-EPI 2020 equation using creatinine, age, and sex. Performed By: #### H FP, CHM7, MGO ####[facility] (DEFAULT)[address] [place] [address] Glucose [Mass/Vol] 111 mg/dL High 70-99 [facility] Comment on above: Performed By: #### H FP, CHM7, MGO ####[facility] (DEFAULT)[address] [place] [address] Osmolality [Osmolality] 286 mosm/kg Normal 278-305 [facility] Comment on above: Performed By: #### H FP, CHM7, MGO ####[facility] (DEFAULT)[address] [place] [address] Potassium [Moles/Vol] 4.2 mmol/L Normal 3.5-5.0 [facility] Comment on above: Performed By: #### H FP, CHM7, MGO ####[facility] (DEFAULT)[address] [place] [address] Sodium [Moles/Vol] 135 mmol/L Normal 135-145 [facility] Comment on above: Performed By: #### H FP, CHM7, MGO ####[facility] (DEFAULT)[address] [place] [address] Urea nitrogen [Mass/Vol] 18 mg/dL Normal 7-25 [facility] Comment on above: Performed By: #### H FP, CHM7, MGO ####[facility] (DEFAULT)[address] [address] Urea nitrogen/Creatinine [Mass ratio] 13 mg/mg Normal [facility] Comment on above: Performed By: #### H FP, CHM7, MGO ####[facility] (DEFAULT)[address] [place] [address] Anion gap [Moles/Vol] 12 mmol/L 7 - 17 mmol/L [facility] Chloride [Moles/Vol] 107 mmol/L 98 - 10 8 mmol/L [facility] CO2 [Moles/Vol] 20 mmol/L Low 21 - 31 mmol/L [facility] Creatinine [Mass/Vol] 1.43 mg/dL High 0.70 - 1.30 mg/dL [facility] eGFR, CKD-EPI, Male 60 Low - PINF [facility] Glucose [Mass/Vol] 111 mg/dL High 70 - 99 mg/dL [facility] Osmolality Calc [Osmolality] 286 [facility] Potassium [Moles/Vol] 4.2 mmol/L 3.5 - 5.0 mmol/L [facility] Sodium [Moles/Vol] 135 mmol/L 135 - 145 mmol/L [facility] Urea nitrogen [Mass/Vol] 18 mg/dL 7 - 25 mg/dL [facility] Urea nitrogen/Creatinine [Mass ratio] 13 mg/mg [facility] CONTINUOUS CARDIAC MONITORIN G STRIPon 09-05-2023 [facility] HEPATIC FUNCTION PANELon Albumin [Mass/Vol] 2.8 g/dL Low 3.5-5.0 [facility] Comment on above: Performed By: #### H FP, CHM7, MGO ####[facility] (DEFAULT)[address] [place] [address] ALP [Catalytic activity/Vol] 103 U/L Normal 32-126 [facility] Comment on above: Performed By: #### H FP, CHM7, MGO ####[facility] (DEFAULT)[address] [place] [address] ALT [Catalytic activity/Vol] 26 U/L Normal 10-52 [facility] Comment on above: Performed By: #### H FP, CHM7, MGO ####[facility] (DEFAULT)[address] [place] [address] AST [Catalytic activity/Vol] 38 U/L Normal 10-39 [facility] Comment on above: Performed By: #### H ANTWAN, NATHANIEL, MGO ####[facility] (DEFAULT)[address] [place] [address] Bilirubin [Mass/Vol] 0.9 mg/dL Normal <1.5 [facility] Comment on above: Performed By: #### H ANTWAN, CHM7, MGO ####[facility] (DEFAULT)[address] [place] [address] Bilirubin.indirect [Mass/Vol] 0.1 mg/dL Normal <0.3 [facility] Comment on above: Performed By: #### H ANTWAN, CHM7, MGO ####[facility] (DEFAULT)[address] [facility] [place] [address] Protein [Mass/Vol] 6.1 g/dL Low 6.4-8.3 [facility] Comment on above: Performed By: #### H ANTWAN, HELENM7, MGO ####[facility] (DEFAULT)[address] [place] [address] Albumin [Mass/Vol] 2.8 g/dL Low 3.5 - 5.0 g/dL [facility] ALP [Catalytic activity/Vol] 103 U/L 32 - 126 U/L [facility] ALT [Catalytic activity/Vol] 26 U/L 10 - 52 U/L [facility] AST [Catalytic activity/Vol] 38 U/L 10 - 39 U/L [facility] Bilirubin [Mass/Vol] 0.9 mg/dL NINF - 1.5 mg/dL [facility] Bilirubin.direct [Mass/Vol] 0.1 mg/dL NINF - 0.3 mg/dL [facility] Protein [Mass/Vol] 6.1 g/dL Low 6.4 - 8.3 g/dL [facility] HISTOPLASMA ANTIGEN, FLUIDon 09-05-2023 FH SOURCE BAL RML [facility] Histo FLD interpretation Negative [facility] Histoplasma Antigen, FLUID Not detected ng/mL [facility] HISTOPLASMA CAPSULATUM/BLAST OMYCES SPECIES,PCR FLUIDon 09-05-2023 HISTO/BLASTO RESULT Negative Not Applicable [facility] Specimen source Nom (Unsp spec) BAL RML [facility] IMMUNOPHENOTYPING, TISSUE/FL UIDon 09-05-2023 BKR DX CODE Use Ordering [facility] Flow Interpretation See Comment [facility] Flow Interpreted by: Yossi Perla MD, PhD [facility] MAGNESIUMon 09-05-2023 Magnesium [Mass/Vol] 1.7 mg/dL Normal 1.6-2.6 [facility] Comment on above: Performed By: #### H , CHM7, MGO ####[facility] (DEFAULT)[address] [place] [address] Interpretation and review of laboratory results Normal [facility] Magnesium [Mass/Vol] 1.7 mg/dL 1.6 - 2 .6 mg/dL [facility] No Panel Informationon 09-05 Interpretation and review of laboratory results Abnormal [facility] TACROLIMUS LEVEL, TROUGH (UT E DRUG LEVEL)Ordered By: Raymundo Mehta on 09-05-2023 Interpretation and review of laboratory results Normal [facility] Tacrolimus (Bld) [Mass/Vol] 5.3 ng/mL [facility] TACROLIMUS LEVEL, TROUGH (UT E DRUG LEVEL)on 09-05-2023 Tacrolimus, Trough 5.3 ng/mL Normal Bone Susana ow Transplant: 4.0-12.0, Therapeutic: 5.0-15.0 [facility] Comment on above: Order Comment: Pleas e draw at specified interval PRIOR to dose. Do not hold dose to wait for level. Specimens batched twice per day, (M-F) and once per day weekendsMethod performed is a chemiluminescent microparticle immunoasssay on the [employer] Mapping i2000.The range is based on experience at [facility] and users should be aware that target concentrations vary widely depending on concomitant therapy, time post-transplant, and desired degree of immunosuppression. Performed By: #### T ACRO ####[facility] (DEFAULT)[address] [place] [address], [place] [address] ARTERIAL BLOOD GAS (FULL PUENTE EL)on 09-04-2023 Base Excess -1.2 mmol/L Normal -3.0-3.0 [facility] Comment on above: Performed By: #### Vale UNDERWOOD ####[facility] (DEFAULT)[address] [place] [address], [place] [address] Carboxyhemoglobin 0.7 % Normal <=1.5 [facility] Comment on above: Performed By: #### Vale UNDERWOOD ####[facility] (DEFAULT)[address] [place] [address], [place] [address] Glucose [Mass/Vol] 159 mg/dL High 70-99 [facility] Comment on above: Performed By: #### Vale UNDERWOOD ####[facility] (DEFAULT)[address] [facility] [place] [address] HCO3 (Bld) [Moles/Vol] 22 mmol/L Normal 22-28 [facility] Comment on above: Performed By: #### Vale UNDERWOOD ####[facility] (DEFAULT)[address] [place] [address], [place] [address] Hematocrit (Bld) [Volume fraction] 38.0 % Low 40.2-50.4 [facility] Comment on above: Performed By: #### Vale UNDERWOOD ####[facility] (DEFAULT)[address] [place] [address], [place] [address] Hemoglobin (Bld) [Mass/Vol] 12.6 g/dL Low 13.4-16.8 [facility] Comment on above: Performed By: #### Vale UNDERWOOD ####[facility] (DEFAULT)[address] [place] [address] Ionized Calcium, Whole Blood 4.79 mg/dL Normal 4.60-5.30 [facility] Comment on above: Performed By: #### G YASMINE ####[facility] (DEFAULT)[address] [place] [address] Lactate, Whole Blood 2.0 mmol/L High 0.5-1.6 [facility] Comment on above: Performed By: #### Vale UNDERWOOD ####[facility] (DEFAULT)[address] [place] [address] Methemoglobin 0.0 % Normal <=1.5 [facility] Comment on above: Performed By: #### Vale UNDERWOOD ####[facility] (DEFAULT)[address] [facility] [place] [address] Oxyhemoglobin 91 % Low 94-98 [facility] Comment on above: Performed By: #### Vale UNDERWOOD ####[facility] (DEFAULT)[address] [facility] [address] pCO2 30 mm Hg Low 32-48 [facility] Comment on above: Performed By: #### Vale UNDERWOOD ####[facility] (DEFAULT)[address] [place] [address] pH (Bld) 7.48 [pH] High 7.35-7.45 [facility] Comment on above: Performed By: #### Vale UNDERWOOD ####[facility] (DEFAULT)[address] [place] [address] pO2 62 mm Hg Low 83-108 [facility] Comment on above: Performed By: #### Vale UNDERWOOD ####[facility] (DEFAULT)[address] [facility] [place] [address] Potassium [Moles/Vol] 4.2 mmol/L Normal 3.5-5.0 [facility] Comment on above: Performed By: #### G YASMINE ####[facility] (DEFAULT)[address] [facility] [place] [address] sO2 92 % Low 94-98 [facility] Comment on above: Performed By: #### Vale UNDERWOOD ####[facility] (DEFAULT)[address] [facility] [place] [address] Sodium [Moles/Vol] 130 mmol/L Low 135-145 [facility] Comment on above: Performed By: #### Vale UNDERWOOD ####[facility] (DEFAULT)[address] [facility] [place] [address] Specimen type Nom (Spec) Arterial Normal [facility] Comment on above: Performed By: #### Vale UNDERWOOD ####[facility] (DEFAULT)[address] [facility] [place] [address] Base excess Calc (Bld) [Moles/Vol] -1.2000 mmol/L -3.0 - 3.0 mmol/L [facility] Calcium.ionized (Bld) [Mass/Vol] 4.79 mg/dL 4.60 - 5.30 mg/dL [facility] Carboxyhemoglobin (Bld) [Mass fraction] 0.7 % NINF - 1.5 % [facility] CO2 (Bld) [Partial pressure] 30 mm[Hg] Low [facility] Glucose [Mass/Vol] 159 mg/dL High 70 - 99 mg/dL [facility] HCO3 (Bld) [Moles/Vol] 22 mmol/L 22 - 28 mmol/L [facility] Hematocrit (Bld) [Volume fraction] 38.0 % Low 40.2 - 50.4 % [facility] Hemoglobin (Bld) [Mass/Vol] 12.6 g/dL Low 13.4 - 16.8 g/dL [facility] Interpretation and review of laboratory results Abnormal [facility] Lactate [Moles/Vol] 2.0 mmol/L High 0.5 - 1. 6 mmol/L [facility] Methemoglobin (Bld) [Mass fraction] 0.0 % NINF - 1.5 % [facility] Oxygen (Bld) [Partial pressure] 62 mm[Hg] Low [facility] Oxygen saturation in Blood 92 % Low 94 - 98 % [facility] Oxyhemoglobin 91 % Low 94 - 98 % [facility] pH (Bld) 7.48 [pH] High 7.35 - 7.45 [facility] Potassium [Moles/Vol] 4.2 mmol/L 3.5 - 5.0 mmol/L [facility] Sodium [Moles/Vol] 130 mmol/L Low 135 - 145 mmol/L [facility] Specimen source Nom (Unsp spec) Arterial [facility] Bacteria identified Respirat ory culture Nom (Unsp spec)on 09-04-2023 Bacteria identified Cx Nom (Unsp spec) NO GROWTH DAY 2 OF 2 [facility] Microscopic observation Other stain Nom (Unsp spec) Cytocentrifuge preparation [facility] Microscopic observation Other stain Nom (Unsp spec) Neutrophils, Rare [facility] Microscopic observation Other stain Nom (Unsp spec) Red Blood Cells Present [facility] Microscopic observation Other stain Nom (Unsp spec) No organisms seen [facility] Bacteria identified Respirat ory culture Nom (Unsp spec)Ordered By: Jose Salgado on 09-04-2023 Bacteria identified Cx Nom (Unsp spec) NO GROWTH DAY 2 OF 2 [facility] Microscopic observation Other stain Nom (Unsp spec) Cytocentrifuge preparation [facility] Microscopic observation Other stain Nom (Unsp spec) [facility], [facility] Other stain Nom (Unsp spec) Red Blood Cells Present [facility] Microscopic observation Other stain Nom (Unsp spec) No organisms seen [facility] CBC,PLATELETSon 09-04-2023 Hematocrit (Bld) [Volume fraction] 38.7 % Low 39.6-48.8 [facility] Comment on above: Performed By: #### H EMOGC ####[facility] (DEFAULT)[address] [facility] [place] [address] Hemoglobin (Bld) [Mass/Vol] 12.3 g/dL Low 13.4-16.8 [facility] Comment on above: Performed By: #### H EMOGC ####[facility] (DEFAULT)[address] [facility] [place] [address] MCV (RBC) [Entitic vol] 87.8 fL Normal 79.0-94.5 [facility] Comment on above: Performed By: #### H EMOGC ####[facility] (DEFAULT)[address] [facility] [place] [address] Mean Cell Hgb 27.9 pg Normal 26.1-33.3 [facility] Comment on above: Performed By: #### H EMOGC ####[facility] (DEFAULT)[address] [facility] [place] [address] Mean Cell Hgb Conc 31.8 g/dL Low 31.9-36.5 [facility] Comment on above: Performed By: #### H EMOGC ####[facility] (DEFAULT)[address] [facility] [place] [address] Platelet mean volume (Bld) [Entitic vol] 9.8 fL Normal 8.7-12.3 [facility] Comment on above: Performed By: #### H EMOGC ####[facility] (DEFAULT)[address] [facility] [place] [address] Platelets (Bld) [#/Vol] 173 10*3/uL Normal 146-337 [facility] Comment on above: Performed By: #### H EMOGC ####[facility] (DEFAULT)[address] [facility] [place] [address] RBC (Bld) [#/Vol] 4.41 10*6/uL Normal 4.38-5.83 [facility] Comment on above: Performed By: #### [facility] ####[facility] (DEFAULT)[address] [facility] [place] [address] RBC Distribution 13.2 % Normal 10.9-14.3 [facility] Comment on above: Performed By: #### H [facility] ####[facility] (DEFAULT)[address] [place] [address] WBC (Bld) [#/Vol] 4.57 10*3/uL Normal 3.73-10.10 [facility] Comment on above: Performed By: #### H [facility] ####[facility] (DEFAULT)[address] [facility] [place] [address] Erythrocyte distribution width (RBC) [Ratio] 13.2 % 10.9 - 14.3 % [facility] Hematocrit (Bld) [Volume fraction] 38.7 % Low 39.6 - 48.8 % [facility] Hemoglobin (Bld) [Mass/Vol] 12.3 g/dL Low 13.4 - 16.8 g/dL [facility] Interpretation and review of laboratory results Abnormal [facility] MCH (RBC) [Entitic mass] 27.9 pg 26.1 - 33.3 pg [facility] MCHC (RBC) [Mass/Vol] 31.8 g/dL Low 31.9 - 36.5 g/dL [facility] MCV (RBC) [Entitic vol] 87.8 fL 79.0 - 94.5 fL [facility] Platelet mean volume (Bld) [Entitic vol] 9.8 fL 8.7 - 12.3 fL [facility] Platelets (Bld) [#/Vol] 173 10*3/uL 146 - 337 K/uL [facility] RBC (Bld) [#/Vol] 4.41 10*6/uL [facility] WBC (Bld) [#/Vol] 4.57 10*3/uL 3.73 - 10. 10 K/uL [facility] CHEM 7 (LYTES,BUN,CREA,GLUC) on 09-04-2023 Anion gap [Moles/Vol] 16 mmol/L Normal 7-17 [facility] Comment on above: Performed By: #### TJ RAMÍREZ7, HFP ####[facility] (DEFAULT)[address] [place] [address] Chloride [Moles/Vol] 104 mmol/L Normal 98-108 [facility] Comment on above: Performed By: #### Rod BLOOM CHM7, HFP ####[facility] (DEFAULT)[address] [facility] [place] [address] CO2 [Moles/Vol] 18 mmol/L Low 21-31 [facility] Comment on above: Performed By: #### Rod BLOOM CHM7, HFP ####[facility] (DEFAULT)[address] [facility] [place] [address] Creatinine [Mass/Vol] 1.22 mg/dL Normal 0.70-1.30 [facility] Comment on above: Performed By: #### Rod BLOOM CHM7, HFP ####[facility] (DEFAULT)[address] [facility] [place] [address] GFR/1.73 sq M.predicted among non-blacks MDRD (S/P/Bld) [Vol rate/Area] 71 mL/min/{1.73_m2} Normal >=60 [facility] Comment on above: Result Comment: Repo rted eGFR is based on the CKD-EPI 2020 equation using creatinine, age, and sex. Performed By: #### Rod BLOOM CHM7, HFP ####[facility] (DEFAULT)[address] [place] [address] Glucose [Mass/Vol] 124 mg/dL High 70-99 [facility] Comment on above: Performed By: #### Rod BLOOM CHM7, HFP ####[facility] (DEFAULT)[address] [facility] [place] [address] Osmolality [Osmolality] 284 mosm/kg Normal 278-305 [facility] Comment on above: Performed By: #### NATHANIEL RAMÍREZ, HFP ####[facility] (DEFAULT)[address] [place] [address] Potassium [Moles/Vol] 3.9 mmol/L Normal 3.5-5.0 [facility] Comment on above: Performed By: #### NATHANIEL RAMÍREZ, HFP ####[facility] (DEFAULT)[address] [place] [address] Sodium [Moles/Vol] 134 mmol/L Low 135-145 [facility] Comment on above: Performed By: #### NATHANIEL RAMÍREZ, HFP ####[facility] (DEFAULT)[address] [place] [address] Urea nitrogen [Mass/Vol] 15 mg/dL Normal 7-25 [facility] Comment on above: Performed By: #### NATHANIEL RAMÍREZ, HFP ####[facility] (DEFAULT)[address] [place] [address] Urea nitrogen/Creatinine [Mass ratio] 12 mg/mg Normal [facility] Comment on above: Performed By: #### NATHANIEL RAMÍREZ, HFP ####[facility] (DEFAULT)[address] [place] [address] Anion gap [Moles/Vol] 16 mmol/L 7 - 17 mmol/L [facility] Chloride [Moles/Vol] 104 mmol/L 98 - 10 8 mmol/L [facility] CO2 [Moles/Vol] 18 mmol/L Low 21 - 31 mmol/L [facility] Creatinine [Mass/Vol] 1.22 mg/dL 0.70 - 1.30 mg/dL [facility] eGFR, CKD-EPI, Male 72 - PINF [facility] Glucose [Mass/Vol] 124 mg/dL High 70 - 99 mg/dL [facility] Osmolality Calc [Osmolality] 284 [facility] Potassium [Moles/Vol] 3.9 mmol/L 3.5 - 5.0 mmol/L [facility] Sodium [Moles/Vol] 134 mmol/L Low 135 - 145 mmol/L [facility] Urea nitrogen [Mass/Vol] 15 mg/dL 7 - 25 mg/dL [facility] Urea nitrogen/Creatinine [Mass ratio] 12 mg/mg [facility] CMV PCR,FLUIDS,URINE,EYE ETC on 09-04-2023 Specimen source Nom (Unsp spec) BAL LLL [facility] Specimen source Nom (Unsp spec) BAL RML [facility] HEPATIC FUNCTION PANELon Albumin [Mass/Vol] 3.0 g/dL Low 3.5-5.0 [facility] Comment on above: Performed By: #### NATHANIEL RAMÍREZ, HFP ####[facility] (DEFAULT)[address] [facility] [place] [address] ALP [Catalytic activity/Vol] 112 U/L Normal 32-126 [facility] Comment on above: Performed By: #### NATHANIEL RAMÍREZ, HFP ####[facility] (DEFAULT)[address] [facility] [place] [address] ALT [Catalytic activity/Vol] 22 U/L Normal 10-52 [facility] Comment on above: Performed By: #### NATHANIEL RAMÍREZ, HFP ####[facility] (DEFAULT)[address] [facility] [place] [address] AST [Catalytic activity/Vol] 30 U/L Normal 10-39 [facility] Comment on above: Performed By: #### NATHANIEL RAMÍREZ, HFP ####[facility] (DEFAULT)[address] [facility] [place] [address] Bilirubin [Mass/Vol] 1.2 mg/dL Normal <1.5 [facility] Comment on above: Performed By: #### NATHANIEL RAMÍREZ, HFP ####[facility] (DEFAULT)[address] [place] [address] Bilirubin.indirect [Mass/Vol] 0.4 mg/dL High <0.3 [facility] Comment on above: Performed By: #### M NATHANIEL BLOOM, HFP ####[facility] (DEFAULT)[address] [place] [address] Protein [Mass/Vol] 6.4 g/dL Normal 6.4-8.3 [facility] Comment on above: Performed By: #### M NATHANIEL BLOOM, HFP ####[facility] (DEFAULT)[address] [place] [address] Albumin [Mass/Vol] 3.0 g/dL Low 3.5 - 5.0 g/dL [facility] ALP [Catalytic activity/Vol] 112 U/L 32 - 126 U/L [facility] ALT [Catalytic activity/Vol] 22 U/L 10 - 52 U/L [facility] AST [Catalytic activity/Vol] 30 U/L 10 - 39 U/L [facility] Bilirubin [Mass/Vol] 1.2 mg/dL NINF - 1.5 mg/dL [facility] Bilirubin.direct [Mass/Vol] 0.4 mg/dL High NINF - 0.3 mg/dL [facility] Protein [Mass/Vol] 6.4 g/dL 6.4 - 8.3 g/dL [facility] LEGIONELLA PCRon 09-04-2023 Legionella sp rRNA Probe Ql (Unsp spec) Negative Not Applicable [facility] Specimen source Nom (Unsp spec) BAL RML [facility] - Microbiology an d Antimicrobial susceptibilityon 09-04-2023 CMV DNA ESTELITA+probe Ql (Unsp spec) Negative Negative [facility] MAGNESIUMon 09-04-2023 Magnesium [Mass/Vol] 1.4 mg/dL Low 1.6-2.6 [facility] Comment on above: Performed By: #### M NATHANIEL BLOOM, HFP ####[facility] (DEFAULT)[address] [place] [address] Magnesium [Mass/Vol] 1.4 mg/dL Low 1.6 - 2 .6 mg/dL [facility] No Panel Informationon 09-04 Annotation comment [Interpretation] Narrative DNR [facility] PN Report Status DNR [facility] Pneumocystis jiroveci,PCR result Negative Not Applicable [facility] Interpretation and review of laboratory results Abnormal [facility] PNEUMOCYSTIS JIROVECI,PCRon 09-04-2023 Specimen source Nom (Unsp spec) BAL LLL [facility] Specimen source Nom (Unsp spec) BAL RML [facility] Portable XR Chest Viewson RADIOLOGY RADIOLOGY [facility] Radiology Study observation (narrative) [facility] Portable XR Chest ViewsOrder ed By: Joanie Nugent on 09-04-2023 [facility] Work Phone: TACROLIMUS LEVEL, TROUGH (UT E DRUG LEVEL)on 09-04-2023 Interpretation and review of laboratory results Abnormal [facility] Tacrolimus (Bld) [Mass/Vol] 3.6 ng/mL Low [facility] Tacrolimus, Trough 3.6 ng/mL Low Bone Susana ow Transplant: 4.0-12.0, Therapeutic: 5.0-15.0 [facility] Comment on above: Order Comment: Pleas e draw at specified interval PRIOR to dose. Do not hold dose to wait for level. Specimens batched twice per day, (M-F) and once per day weekendsMethod performed is a chemiluminescent microparticle immunoasssay on the [employer] Supervisor Mapping i2000.The range is based on experience at [facility] and users should be aware that target concentrations vary widely depending on concomitant therapy, time post-transplant, and desired degree of immunosuppression. Performed By: #### T ACRO ####[facility] (DEFAULT)[address] [place] [address] XR CHEST PORTABLEon 09-04-20 XR CHEST PORTABLE Normal [facility] ASPERGILLUS ANTIGEN, BALon 1 Galactomannan Ag IA Qn (Unsp spec) <0.500 NINF [facility] Galactomannan Ag IA Qn (Unsp spec) <0.500 NINF [facility] BAL CONSULTOrdered By: Noa Peralta on 09-03-2023 ALVEOLAR MACROPHAGES 32 % [facility] Work Phone: Bal comments Correlation with microbiology stains and cultures is recommended. [facility] Work Phone: Bal Diff Quik Stain Quality Check Acceptable [facility] Work Phone: BKR BAL INTERPRETATION Cellular specimen comprised of alveolar macrophages and small lymphocytes. No definitive microorganisms are observed. Moderate degenerative changes. [facility] Work Phone: BKR DX CODE Use Ordering [facility] Work Phone: Eosinophils Patterson stain Ql (Unsp spec) 0 % [facility] Work Phone: Lymphocytes/100 WBC (Bld) 57 % [facility] Work Phone: Neutrophils/100 WBC Manual cnt (Bronch spec) 11 % [facility] Work Phone: Pathologist review Jame (Unsp spec) [Interp] Leonardo Peralta MD [facility] Work Phone: [facility] Work Phone: BAL CONSULTon 09-03-2023 ALVEOLAR MACROPHAGES 33 % [facility] Bal comments Correlation with microbiology stains and cultures is recommended. Correlation with viral studies is recommended. [facility] Bal Diff Quik Stain Quality Check Acceptable [facility] BKR BAL INTERPRETATION Cellular specimen comprised of alveolar macrophages and small lymphocytes. No definitive microorganisms are observed. Rare degenerating cells with changes suggestive of viral cytopathic effect are noted. Moderate degenerative changes. [facility] BKR DX CODE Use Ordering [facility] Eosinophils Patterson stain Ql (Unsp spec) 0 % [facility] Lymphocytes/100 WBC (Bld) 49 % [facility] Neutrophils/100 WBC Manual cnt (Bronch spec) 18 % [facility] Pathologist review Jame (Unsp spec) [Interp] Leonardo Peralta MD [facility] BRONCHOSCOPYon 09-03-2023 LAB, [facility] CBC,PLATELETSon 09-03-2023 Hematocrit (Bld) [Volume fraction] 39.6 % Normal 39.6-48.8 [facility] Comment on above: Performed By: #### H EMO ####[facility] (DEFAULT)[address] [place] [address] Hemoglobin (Bld) [Mass/Vol] 12.8 g/dL Low 13.4-16.8 [facility] Comment on above: Performed By: #### H EMO ####[facility] (DEFAULT)[address] [place] [address] MCV (RBC) [Entitic vol] 85.9 fL Normal 79.0-94.5 [facility] Comment on above: Performed By: #### H EMOGC ####[facility] (DEFAULT)[address] [place] [address] Mean Cell Hgb 27.8 pg Normal 26.1-33.3 [facility] Comment on above: Performed By: #### H EMOGC ####[facility] (DEFAULT)[address] [place] [address] Mean Cell Hgb Conc 32.3 g/dL Normal 31.9-36.5 [facility] Comment on above: Performed By: #### H EMOGC ####[facility] (DEFAULT)[address] [facility] [place] [address] Platelet mean volume (Bld) [Entitic vol] 9.4 fL Normal 8.7-12.3 [facility] Comment on above: Performed By: #### H EMO ####[facility] (DEFAULT)[address] [facility] [place] [address] Platelets (Bld) [#/Vol] 222 10*3/uL Normal 146-337 [facility] Comment on above: Performed By: #### H EMO ####[facility] (DEFAULT)[address] [facility] [place] [address] RBC (Bld) [#/Vol] 4.61 10*6/uL Normal 4.38-5.83 [facility] Comment on above: Performed By: #### H EMO ####[facility] (DEFAULT)[address] [facility] [place] [address] RBC Distribution 13.4 % Normal 10.9-14.3 [facility] Comment on above: Performed By: #### H EMO ####[facility] (DEFAULT)[address] [facility] [place] [address] WBC (Bld) [#/Vol] 4.36 10*3/uL Normal 3.73-10.10 [facility] Comment on above: Performed By: #### H EMO ####[facility] (DEFAULT)[address] [facility] [place] [address] Erythrocyte distribution width (RBC) [Ratio] 13.4 % 10.9 - 14.3 % [facility] Hematocrit (Bld) [Volume fraction] 39.6 % 39.6 - 48.8 % [facility] Hemoglobin (Bld) [Mass/Vol] 12.8 g/dL Low 13.4 - 16.8 g/dL [facility] Interpretation and review of laboratory results Abnormal [facility] MCH (RBC) [Entitic mass] 27.8 pg 26.1 - 33.3 pg [facility] MCHC (RBC) [Mass/Vol] 32.3 g/dL 31.9 - 36.5 g/dL [facility] MCV (RBC) [Entitic vol] 85.9 fL 79.0 - 94.5 fL [facility] Platelet mean volume (Bld) [Entitic vol] 9.4 fL 8.7 - 12.3 fL [facility] Platelets (Bld) [#/Vol] 222 10*3/uL 146 - 337 K/uL [facility] RBC (Bld) [#/Vol] 4.61 10*6/uL [facility] WBC (Bld) [#/Vol] 4.36 10*3/uL 3.73 - 10. 10 K/uL [facility] CHEM 7 (LYTES,BUN,CREA,GLUC) on 09-03-2023 Anion gap [Moles/Vol] 12 mmol/L Normal 7-17 [facility] Comment on above: Performed By: #### Rod BLOOM CHM7, HFP ####[facility] (DEFAULT)[address] [facility] [place] [address] Chloride [Moles/Vol] 104 mmol/L Normal 98-108 [facility] Comment on above: Performed By: #### Rod BLOOM CHM7, HFP ####[facility] (DEFAULT)[address] [facility] [place] [address] CO2 [Moles/Vol] 24 mmol/L Normal 21-31 [facility] Comment on above: Performed By: #### Rod BLOOM CHM7, HFP ####[facility] (DEFAULT)[address] [facility] [place] [address] Creatinine [Mass/Vol] 1.20 mg/dL Normal 0.70-1.30 [facility] Comment on above: Performed By: #### Rod GO CHM7, HFP ####[facility] (DEFAULT)[address] [place] [address] GFR/1.73 sq M.predicted among non-blacks MDRD (S/P/Bld) [Vol rate/Area] 73 mL/min/{1.73_m2} Normal >=60 [facility] Comment on above: Result Comment: Repo rted eGFR is based on the CKD-EPI 2020 equation using creatinine, age, and sex. Performed By: #### NATHANIEL RAMÍREZ, HFP ####[facility] (DEFAULT)[address] [place] [address] Glucose [Mass/Vol] 112 mg/dL High 70-99 [facility] Comment on above: Performed By: #### NATHANIEL RAMÍREZ, HFP ####[facility] (DEFAULT)[address] [place] [address] Osmolality [Osmolality] 288 mosm/kg Normal 278-305 [facility] Comment on above: Performed By: #### NATHANIEL RAMÍREZ, HFP ####[facility] (DEFAULT)[address] [place] [address] Potassium [Moles/Vol] 4.1 mmol/L Normal 3.5-5.0 [facility] Comment on above: Performed By: #### NATHANIEL RAMÍREZ, HFP ####[facility] [facility] (DEFAULT)[address] [place] [address] Sodium [Moles/Vol] 136 mmol/L Normal 135-145 [facility] Comment on above: Performed By: #### NATHANIEL RAMÍREZ, HFP ####[facility] (DEFAULT)[address] [place] [address] Urea nitrogen [Mass/Vol] 17 mg/dL Normal 7-25 [facility] Comment on above: Performed By: #### NATHANIEL RAMÍREZ, HFP ####[facility] (DEFAULT)[address] [place] [address] Urea nitrogen/Creatinine [Mass ratio] 14 mg/mg Normal [facility] Comment on above: Performed By: #### M , CHM7, [facility] ####[facility] (DEFAULT)[address] [place] [address] Anion gap [Moles/Vol] 12 mmol/L 7 - 17 [facility] Chloride [Moles/Vol] 104 mmol/L 98 - 10 8 mmol/L [facility] CO2 [Moles/Vol] 24 mmol/L 21 - 31 mmol/L [facility] Creatinine [Mass/Vol] 1.20 mg/dL 0.70 - 1.30 mg/dL [facility] eGFR, CKD-EPI, Male 74 - [facility] Glucose [Mass/Vol] 112 mg/dL High 70 - 99 mg/dL [facility] Osmolality Calc [Osmolality] 288 [facility] Potassium [Moles/Vol] 4.1 mmol/L 3.5 - 5.0 mmol/L [facility] Sodium [Moles/Vol] 136 mmol/L 135 - 145 mmol/L [facility] Urea nitrogen [Mass/Vol] 17 mg/dL 7 - 25 mg/dL [facility] Urea nitrogen/Creatinine [Mass ratio] 14 mg/mg [facility] CYTOLOGY, NON-GYNOrdered By: Sherice Jimenez on 09-03-2023 CYTOLOGIC DIAGNOSIS k8drcLXzBKCwpCDgGYBrU7zexpO jTHLpoTFiW5TmelbwFJtrZF3gVL 7teFqjhYLscRLtNKVwJpOzj0lbt 129bWOsd3exFVMFxjinjMh1y4mj XSDCbZ9ja6e5sA92SHOdxD3xbBM xVHmqgnGbJGyaarGfqiMqCvu8WY I3uCzzIakdcNJ7mVTcwQA9VSktd 9WitSkmlSsnFCV3JXAdTmdvXPsa qBV3lTBhgQvcuFMdRD4xs4uwuRV 0ysJaDZG4yWxumZZ3gHbbdmdxb2 sybUY5oFG8RIjjaYU1IYnbLfQkB 4bdBPZiyX4rD71bR7hcQWDvgNky NFfqOCDshUV9QYE4KQHtj1udMMP aoCMmbORnAsZiVYluHtm9m7kmYN TefR63xZMxryI4lFgxFIgnpGQ5R F01NSjgz2GvFGKkdNzwTCXmpD8c YzIzXGxldmVsbmZjbjIzXGxldmV zyyLaAHmdhwJtp0LnkkClvUH4KX nbqaKzzUB8lXixWXUhL3J7N982O SedhnJtqnAxTbStusq1YLXytBpw bGlzdGxldmVsXGxldmVsbmZjMjN dnSK4XVrsHbRaOuTarBY9ZTrrTz TnjUZ7SAtrkQBgvAX9RAhqvEK9U Zj6XNi5BWnnCEhjOsc7iCnsyVG5 IOlebA1rKWPlN44nVnS0o4zimGN 4vTC8ZRuihLQ7VTtdPnRhM7lvTP DeyA6dQ18nQ8ktEVLrkEuuJUndL RSfaPU2BYG9ZCJav4myTJImuKZl oJSgXhBdSQmoArw2u8bmLGCunB3 5wXEtybM1aVydQS59QEztv2RzRV YfwOzoJFTbiO5mUfTrQJaynfOpu mZjbjIzXGxldmVsamMwXGxldmVs u2GbpgQwkYR6NMsryrQclZM1oCf xFXNkO8B6U548XVbeacHrhhCmXj Lccgq1YNDrrYtauEfquYbqbeQfL RcstbKgtjPvJvHhpAV5ZKvcBqUw LeZhyCP6DBujHrTlfNF2GRvdgHW fsLW3AKgnsGR3YKv5BMv3URkoPA ukJgq8pOgjcKB1ORhkqB5gJEGrQ 78eGeG2k0gnnIL7bEM9CTrziBK6 JAgvCuIcX0jgWIEioJ3jY07tM7n kEPHzgUcdGDrmNEBlpIM9VJF0LP Ucx4nwXTFqqJHqgFOyRqQgTFjwN xs5e3hjEIFcuF28sCAauyS1wDqp VR76NAkbv6WsPPCspNxdYYWjcN7 mYzIzXGxldmVsbmZjbjIzXGxldm UhqgVmUPxrdxSfq9FseoVjmDC0O MzmfqEhlGC9wNbwDEQzL7K8O053 DNjbvlCalyUgJsMvhbz8LSDgcWk cbGlzdGxldmVsXGxldmVsbmZjMj BptBO4JKxuKoKwLkGuvKB5TFafE zMouSX9HNqfeRGtvID5JNlkfVZ1 EAb0ADa4BKevMUvfQht1dEzhfEJ 6GDmliY5cMYYjO79fRpM6wI57ZF tbxHpquL97TFSljJZjoVFalZX1D UuozQpmrI41YOAuoYXuCWjwx4Vu QUInRzB4HJP7VVFvrWetfR62OKX puWNqN641lwWaUPufDV06UBOszL BgsjNcUqSsXNUxhRNepZY1JYEtL L6aydirBKvnVAwrCQIsvrZ7DJIv bOCxY2HaROHqAH4phtkuKHU5DXk rTUIlMSW7ThFgVYVbq1Kfrix0Xf EinHb1c2cfJDSpJHGibHosy1fjP GF9OFUsoGGsB1kjtL2aJYWiVX2l ayokx6diIPmgHGtlAYXzeEB3yiB 7PTUmlDZpP5BfyG9cCBHqMHOqzu VymMivqJ5lApfqauSbUITxAJGJX fGLVn6AU5cWTEzPQI8JNPGoEQDY AVmCYMKIOUBDHQoKR0WMNMnEHlL vKFTsRHSbF3tTQ1tUO4ocEiohCg OqCGweQCQzTnFnC8FgUQEgymthI RAcZBHHLR8LJXFGZTSODt3QSUA3 SEQrhndkhUG5UEibexPqyUt6qZB zhTehvA2eNvtwwmHrVCGhQBNJvg LGAAyeI63ihmZyR9RxjNAnILYvH ErgOZ38aGNsUKEheNLkXWu5cK2w XIwqbKxzliAEkEJlcW1hdnksQIf jZjBccGFyXGxpMFxsczBccGFyfQ == [facility] Work Phone: Case Report [facility] Work Phone: Clinical History f6fxmQOhGQHlrIIeEXAx V4ijklG mPWLfjLXbN9GaevxbMTdyZV9aMR 8vfEinyEKulCGtQXLlItXno1wnt 130uSHvt4wqTIYQltrdpOx1zErr M96pq0X1CiraX9mlNIAnKFbsBWN sNGsurKXdRXj2KCQjsCSfpjBcYg JyJZVlqHSjbGQ9GGTgMI8mivowF LyvNKziDABaoqP2WTGumFHeQ1Ud SZKpQT9vmasbGAY7SZnwNTPrABD 9NtVvCCWvo4Lawqw9NcDuvDb8l1 rlDXJtQISxjScml7zlPMD6SCXvx BNoE6qymZ1mMARcXP1knovne1hl ABxsGDrxCLEjuPQ9iyG6FNVekCO pJ8DdhT5gFCEoHYXmhkXslJhpbX 5cZnMyMFxjZjEgUmVuYWwgdHJhb kDduGIakB0bKJGwmc0= [facility] Work Phone: For Immediate Release to Patient's MyChart? Yes Yes [facility] Work Phone: Gross Description b1cjtUMyOOYfrTHtVXEw F3zvsvY fNLDtrGKrX3ZlpovgFZnaDZ3uKS 7ywYihvRDiaURtTESrGqWho1aak 612jDEsh2rrYVGDjenbtRk8pRrb N63qu4E8LesjC18zyXBfHUD0JPZ nHKTnlHSzIZZpTQX4XZOceUHcQ0 neXLEsMY6lxtifLOsxGMstQXTel FC6BWGdvVTjG9SlCILuVQooWWSa ovq2UvDyLp4opGNccKxnGBhrPMS kXHBsYWluXGZzMjAgTExMIEJBTF kmSKZaDVWghZUeEZp7DVMrlL1mn VZcedQteDKadT7saTizILcnFXZc NHOJYTOgtRduFNCHJEOix2TniK6 ccGFyXHBhcmRccGFyXHBhcn0= [facility] Work Phone: [facility] Work Phone: HEPATIC FUNCTION PANELon Albumin [Mass/Vol] 3.2 g/dL Low 3.5-5.0 [facility] Comment on above: Performed By: #### NATHANIEL RAMÍREZ, HFP ####[facility] (DEFAULT)[address] [place] [address] ALP [Catalytic activity/Vol] 118 U/L Normal 32-126 [facility] Comment on above: Performed By: #### NATHANIEL RAMÍREZ, HFP ####[facility] (DEFAULT)[address] [place] [address] ALT [Catalytic activity/Vol] 25 U/L Normal 10-52 [facility] Comment on above: Performed By: #### M TJ BLOOM7, HFP ####[facility] (DEFAULT)[address] [place] [address] AST [Catalytic activity/Vol] 32 U/L Normal 10-39 [facility] Comment on above: Performed By: #### M TJ BLOOM7, HFP ####[facility] (DEFAULT)[address] [place] [address] Bilirubin [Mass/Vol] 1.0 mg/dL Normal <1.5 [facility] Comment on above: Performed By: #### M NATHANIEL BLOOM, HFP ####[facility] (DEFAULT)[address] [place] [address] Bilirubin.indirect [Mass/Vol] 0.3 mg/dL High <0.3 [facility] Comment on above: Performed By: #### M NATHANIEL BLOOM, HFP ####[facility] (DEFAULT)[address] [place] [address] Protein [Mass/Vol] 6.5 g/dL Normal 6.4-8.3 [facility] Comment on above: Performed By: #### M HELEN BLOOMM7, HFP ####[facility] (DEFAULT)[address] [place] [address] Albumin [Mass/Vol] 3.2 g/dL Low 3.5 - 5.0 g/dL [facility] ALP [Catalytic activity/Vol] 118 U/L 32 - 126 U/L [facility] ALT [Catalytic activity/Vol] 25 U/L 10 - 52 U/L [facility] AST [Catalytic activity/Vol] 32 U/L 10 - 39 U/L [facility] Bilirubin [Mass/Vol] 1.0 mg/dL NINF - 1.5 mg/dL [facility] Bilirubin.direct [Mass/Vol] 0.3 mg/dL High NINF - 0.3 mg/dL [facility] Protein [Mass/Vol] 6.5 g/dL 6.4 - 8.3 g/dL [facility] HISTOPLASMA AND BLASTOMYCES ANTIGEN, ENZYME IMMUNOASSAY, SERMon 09-03-2023 Histoplasma/Blastomy antonia Ag Result Detected Critically abnormal Not Detected [facility] Histoplasma/Blastomy antonia Ag Value 5.3 ng/mL [facility] Interpretation and review of laboratory results Abnormal [facility] IMMUNOPHENOTYPING, TISSUE/FL UIDon 09-03-2023 BKR DX CODE Use Ordering Normal [facility] Comment on above: Order Comment: Dilan e lab add on to specimen collected yesterdayIMMUNOPHENOTYPING DIAGNOSISPATIENT NAME: GEORGE SLATER: 1970MRN: [id number]#: [id number] BY: Yossi Perla M.D,, Ph.D. [id number] TYPE: Bronchial Alveolar LavageLABORATORY INTERPRETATION:There is no [...] performance characteristicsdetermined The Flow Cytometry Laboratory at [facility]. It has notbeen cleared or approved by the FDA. This laboratory is certifiedunder the Clinical Laboratory Improvement Amendments (CLIA)as qualified to perform high complexity clinical laboratorytesting. This test is used for clinical purposes. It should notbe regarded as investigational or for research.The [facility] Flow Cytometry Laboratory lower limitof CLL MRD detection is 0.1% of the gated lymphocytes. Performed By: #### G [facility] ####[facility] (DEFAULT)[address] [place] [address] Flow Interpretation See Comment Normal [facility] Comment on above: Order Comment: Pleas e lab add on to specimen collected yesterdayIMMUNOPHENOTYPING DIAGNOSISPATIENT NAME: GEORGE SLATER: 1970MRN: [id number]#: [id number] BY: Yossi Perla M.D,, Ph.D. [id number] TYPE: Bronchial Alveolar LavageLABORATORY INTERPRETATION:There is no [...] performance characteristicsdetermined The Flow Cytometry Laboratory at [facility]. It has notbeen cleared or approved by the FDA. This laboratory is certifiedunder the Clinical Laboratory Improvement Amendments (CLIA)as qualified to perform high complexity clinical laboratorytesting. This test is used for clinical purposes. It should notbe regarded as investigational or for research.The [facility] Flow Cytometry Laboratory lower limitof CLL MRD detection is 0.1% of the gated lymphocytes. Performed By: #### G IPP ####[facility] ([facility])[address] [place] [address] Flow Interpreted by: Yossi Perla MD, PhD [facility] Comment on above: Order Comment: Dilan gregory lab add on to specimen collected yesterdayIMMUNOPHENOTYPING DIAGNOSISPATIENT NAME: GEORGE SLATER: 1970MRN: [id number]#: [id number] BY: Yossi Perla M.D,, Ph.D. [id number] TYPE: Bronchial Alveolar LavageLABORATORY INTERPRETATION:There is no [...] performance characteristicsdetermined The Flow Cytometry Laboratory at [facility]. It has notbeen cleared or approved by the FDA. This laboratory is certifiedunder the Clinical Laboratory Improvement Amendments (CLIA)as qualified to perform high complexity clinical laboratorytesting. This test is used for clinical purposes. It should notbe regarded as investigational or for research.The [facility] Flow Cytometry Laboratory lower limitof CLL MRD detection is 0.1% of the gated lymphocytes. Performed By: #### G IPP ####[facility] (DEFAULT)[address] [place] [address] MAGNESIUMon 09-03-2023 Magnesium [Mass/Vol] 1.6 mg/dL Normal 1.6-2.6 [facility] Comment on above: Performed By: #### M GO, CHM7, [facility] ####[facility] (DEFAULT)[address] [place] [address] Interpretation and review of laboratory results Normal [facility] Magnesium [Mass/Vol] 1.6 mg/dL 1.6 - 2 .6 mg/dL [facility] No Panel Informationon 09-03 Interpretation and review of laboratory results Abnormal [facility] PARVOVIRUS (B19) DNA, PCR, B LOODon 09-03-2023 PARVOVIRUS B19 BY RAPID PCR Not detected Not Detected [facility] UT SPEC SOURCE Whole Blood [facility] Portable XR Chest Viewson RADIOLOGY RADIOLOGY [facility] Radiology Study observation (narrative) [facility] Portable XR Chest ViewsOrder ed By: [place] on 09-03-2023 [facility] Work Phone: XR CHEST PORTABLEon 09-03-20 23 XR CHEST PORTABLE Normal [facility] ACID FAST CULTUREon 09-02-20 23 Bacteria identified Cx Nom (Unsp spec) NO GROWTH DAY 42 OF 42 Normal [facility] Comment on above: Performed By: #### A FB ####[facility] (DEFAULT)[address] [facility] [place] [address] Fluorochrome Stain No acid Fast Bacillus Seen Normal [facility] Comment on above: Performed By: #### A FB ####[facility] (DEFAULT)[address] [facility] [place] [address] Bacteria identified Cx Nom (Unsp spec) NO GROWTH DAY 42 OF 42 Normal [facility] Comment on above: Order Comment: BAL A FB culture. Clinical suspicion for non-tuberculous mycobacteria Performed By: #### A FB ####[facility] (DEFAULT)[address] [place] [address] Fluorochrome Stain No acid Fast Bacillus Seen Normal [facility] Comment on above: Order Comment: BAL A FB culture. Clinical suspicion for non-tuberculous mycobacteria Performed By: #### A FB ####[facility] (DEFAULT)[address] [facility] [place] [address] ASPERGILLUS (GALACTOMANNAN), ANTIGENon 09-02-2023 Galactomannan Ag IA Qn <0.500 NINF [facility] ASPERGILLUS ANTIGEN, BALon 1 Aspergillus Galactomannan Antigen, BAL <0.500 Normal <0.5 [facility] Comment on above: Result Comment: ---- ADDITIONAL INFORMATION This is a qualitative test and the resulted index value isnot indicative of disease severity. Serial testing isrecommended for patients at high risk for invasiveaspergillosis.This assay was performed using the FDA-cleared [employer] Aspergillus Galactomannan EIA.Test Performed by:[address] Director: Rosendo Bose M.D. Ph.D.; CLIA# [id number] Performed By: #### X ASGFL ####[facility] (DEFAULT)[address] [place] [address] Aspergillus Galactomannan Antigen, BAL <0.500 Normal <0.5 [facility] Comment on above: Order Comment: BAL a spirgillus antigen Result Comment: ---- ADDITIONAL INFORMATION This is a qualitative test and the resulted index value isnot indicative of disease severity. Serial testing isrecommended for patients at high risk for invasiveaspergillosis.This assay was performed using the FDA-cleared [employer] Aspergillus Galactomannan EIA.Test Performed by:[address] Director: Rosendo Bose M.D. Ph.D.; CLIA# [id number] Performed By: #### X ASGFL ####[facility] (DEFAULT)[address] [address] ATYPICAL BACTERIAL PNEUMONIA ,PCROrdered By: Shari Contreras on 09-02-2023 B. parapertussis DNA ESTELITA+probe Ql (Unsp spec) Not detected Not Detected [facility] B. pertussis DNA ESTELITA+probe Ql (Unsp spec) Not detected Not Detected [facility] C. pneumoniae DNA ESTELITA+probe Ql (Unsp spec) Not detected Not Detected [facility] Interpretation and review of laboratory results Normal [facility] M. pneumoniae DNA ESTELITA+probe Ql (Unsp spec) Not detected Not Detected [facility] ATYPICAL BACTERIAL PNEUMONIA ,PCRon 09-02-2023 Bordetella Parapertussis Not detected Normal Not Detected [facility] Comment on above: Order Comment: Viral [...] by The Clinical Microbiology Laboratory at [facility]. It has not been cleared or approved by the FDA. The laboratory is required under CLIA as qualified to perform high-complexity testing. This test is used for clinical purposes. It should not be regarded as investigational or for research. Performed By: #### A TYPNE ####[facility] (DEFAULT)[address] [place] [address] Bordetella Pertussis Not detected Normal Not Detected [facility] Comment on above: Order Comment: Viral [...] by The Clinical Microbiology Laboratory at [facility]. It has not been cleared or approved by the FDA. The laboratory is required under CLIA as qualified to perform high-complexity testing. This test is used for clinical purposes. It should not be regarded as investigational or for research. Performed By: #### A TYPNE ####[facility] (DEFAULT)[address] [address] Chlamydia Pneumoniae Not detected Normal Not Detected [facility] Comment on above: Order Comment: Viral [...] by The Clinical Microbiology Laboratory at [facility]. It has not been cleared or approved by the FDA. The laboratory is required under CLIA as qualified to perform high-complexity testing. This test is used for clinical purposes. It should not be regarded as investigational or for research. Performed By: #### A TYPNE ####[facility] (DEFAULT)[address] [address] Mycoplasma Pneumoniae Not detected Normal Not Detected [facility] Comment on above: Order Comment: Viral [...] by The Clinical Microbiology Laboratory at [facility]. It has not been cleared or approved by the FDA. The laboratory is required under CLIA as qualified to perform high-complexity testing. This test is used for clinical purposes. It should not be regarded as investigational or for research. Performed By: #### A TYPNE ####[facility] (DEFAULT)[address] [address] BAL CONSULTon 09-02-2023 ALVEOLAR MACROPHAGES 33 % Normal [facility] Comment on above: Order Comment: BAL c onsultIf > 15% lymphocytes - please send for flow. Performed By: #### B ALC ####[facility] (DEFAULT)[address] [facility] [place] [address] Bal comments Correlation with microbiology stains and cultures is recommended. Correlation with viral studies is recommended. Normal [facility] Comment on above: Order Comment: BAL c onsultIf > 15% lymphocytes - please send for flow. Performed By: #### B ALC ####[facility] (DEFAULT)[address] [place] [address], [place] [address] Bal Diff Quik Stain Quality Check Acceptable Normal [facility] Comment on above: Order Comment: BAL c onsultIf > 15% lymphocytes - please send for flow. Performed By: #### B ALC ####[facility] (DEFAULT)[address] [place] [address], [place] [address] Bal Reviewed By: Leonardo Peralta MD [facility] Comment on above: Order Comment: BAL c onsultIf > 15% lymphocytes - please send for flow. Performed By: #### B ALC ####[facility] (DEFAULT)[address] [place] [address] BKR BAL INTERPRETATION Cellular specimen comprised of alveolar macrophages and small lymphocytes. No definitive microorganisms are observed. Rare degenerating cells with changes suggestive of viral cytopathic effect are noted. Moderate degenerative changes. Normal [facility] Comment on above: Order Comment: BAL c onsultIf > 15% lymphocytes - please send for flow. Performed By: #### B ALC ####[facility] (DEFAULT)[address] [place] [address] [place] [address] BKR DX CODE Use Ordering Normal [facility] Comment on above: Order Comment: BAL c onsultIf > 15% lymphocytes - please send for flow. Performed By: #### B ALC ####[facility] (DEFAULT)[address] [place] [address] Eosinophils/100 WBC (Bld) 0 % Normal [facility] Comment on above: Order Comment: BAL c onsultIf > 15% lymphocytes - please send for flow. Performed By: #### B ALC ####[facility] (DEFAULT)[address] [facility] [place] [address] Lymphocytes/100 WBC (Bld) 49 % Normal [facility] Comment on above: Order Comment: BAL c onsultIf > 15% lymphocytes - please send for flow. Performed By: #### B ALC ####[facility] (DEFAULT)[address] [facility] [place] [address] Neutrophils/100 WBC (Bld) 18 % Normal [facility] Comment on above: Order Comment: BAL c onsultIf > 15% lymphocytes - please send for flow. Performed By: #### B ALC ####[facility] (DEFAULT)[address] [place] [address], [place] [address] ALVEOLAR MACROPHAGES 32 % Normal [facility] Comment on above: Order Comment: BAL c onsult for cell differential and pathologist review. Please do flow cytometry if > 12% lymphocytes Performed By: #### B ALC ####[facility] (DEFAULT)[address] [facility] [place] [address] Bal comments Correlation with microbiology stains and cultures is recommended. Normal [facility] Comment on above: Order Comment: BAL c onsult for cell differential and pathologist review. Please do flow cytometry if > 12% lymphocytes Performed By: #### B ALC ####[facility] (DEFAULT)[address] [place] [address], [place] [address] Bal Diff Quik Stain Quality Check Acceptable Normal [facility] Comment on above: Order Comment: BAL c onsult for cell differential and pathologist review. Please do flow cytometry if > 12% lymphocytes Performed By: #### B ALC ####[facility] (DEFAULT)[address] [facility] [place] [address] Bal Reviewed By: Leonardo Peralta MD [facility] Comment on above: Order Comment: BAL c onsult for cell differential and pathologist review. Please do flow cytometry if > 12% lymphocytes Performed By: #### B ALC ####[facility] (DEFAULT)[address] [place] [address] BKR BAL INTERPRETATION Cellular specimen comprised of alveolar macrophages and small lymphocytes. No definitive microorganisms are observed. Moderate degenerative changes. Normal [facility] Comment on above: Order Comment: BAL c onsult for cell differential and pathologist review. Please do flow cytometry if > 12% lymphocytes Performed By: #### B ALC ####[facility] (DEFAULT)[address] [facility] [place] [address] BKR DX CODE Use Ordering Normal [facility] Comment on above: Order Comment: BAL c onsult for cell differential and pathologist review. Please do flow cytometry if > 12% lymphocytes Performed By: #### B ALC ####[facility] (DEFAULT)[address] [facility] [place] [address] Eosinophils/100 WBC (Bld) 0 % Normal [facility] Comment on above: Order Comment: BAL c onsult for cell differential and pathologist review. Please do flow cytometry if > 12% lymphocytes Performed By: #### B ALC ####[facility] (DEFAULT)[address] [facility] [place] [address] Lymphocytes/100 WBC (Bld) 57 % Normal [facility] Comment on above: Order Comment: BAL c onsult for cell differential and pathologist review. Please do flow cytometry if > 12% lymphocytes Performed By: #### B ALC ####[facility] (DEFAULT)[address] [facility] [place] [address] Neutrophils/100 WBC (Bld) 11 % Normal [facility] Comment on above: Order Comment: BAL c onsult for cell differential and pathologist review. Please do flow cytometry if > 12% lymphocytes Performed By: #### B ALC ####[facility] (DEFAULT)[address] [facility] [place] [address] BRONCHOSCOPYon 09-02-2023 Radiology Study observation (narrative) [facility] Bacteria identified Cx Nom ( Bld)on 09-02-2023 Bacteria identified Cx Nom (Unsp spec) NO GROWTH DAY 5 OF 5 [facility] CBC,PLATELETSon 09-02-2023 Hematocrit (Bld) [Volume fraction] 39.9 % Normal 39.6-48.8 [facility] Comment on above: Performed By: #### H EMOGC ####[facility] (DEFAULT)[address] [place] [address] Hemoglobin (Bld) [Mass/Vol] 12.9 g/dL Low 13.4-16.8 [facility] Comment on above: Performed By: #### H EMOGC ####[facility] (DEFAULT)[address] [facility] [place] [address] MCV (RBC) [Entitic vol] 86.4 fL Normal 79.0-94.5 [facility] Comment on above: Performed By: #### H EMOGC ####[facility] (DEFAULT)[address] [facility] [place] [address] Mean Cell Hgb 27.9 pg Normal 26.1-33.3 [facility] Comment on above: Performed By: #### H EMOGC ####[facility] (DEFAULT)[address] [facility] [place] [address] Mean Cell Hgb Conc 32.3 g/dL Normal 31.9-36.5 [facility] Comment on above: Performed By: #### H EMOGC ####[facility] (DEFAULT)[address] [place] [address] Platelet mean volume (Bld) [Entitic vol] 9.5 fL Normal 8.7-12.3 [facility] Comment on above: Performed By: #### H EMOGC ####[facility] (DEFAULT)[address] [facility] [place] [address] Platelets (Bld) [#/Vol] 210 10*3/uL Normal 146-337 [facility] Comment on above: Performed By: #### H EMOGC ####[facility] (DEFAULT)[address] [facility] [place] [address] RBC (Bld) [#/Vol] 4.62 10*6/uL Normal 4.38-5.83 [facility] Comment on above: Performed By: #### H [facility] ####[facility] (DEFAULT)[address] [facility] [place] [address] RBC Distribution 13.2 % Normal 10.9-14.3 [facility] Comment on above: Performed By: #### H [facility] ####[facility] (DEFAULT)[address] [place] [address] WBC (Bld) [#/Vol] 4.12 10*3/uL Normal 3.73-10.10 [facility] Comment on above: Performed By: #### H [facility] ####[facility] (DEFAULT)[address] [place] [address] Erythrocyte distribution width (RBC) [Ratio] 13.2 % 10.9 - 14.3 % [facility] Hematocrit (Bld) [Volume fraction] 39.9 % 39.6 - 48.8 % [facility] Hemoglobin (Bld) [Mass/Vol] 12.9 g/dL Low 13.4 - 16.8 g/dL [facility] Interpretation and review of laboratory results Abnormal [facility] MCH (RBC) [Entitic mass] 27.9 pg 26.1 - 33.3 pg [facility] MCHC (RBC) [Mass/Vol] 32.3 g/dL 31.9 - 36.5 g/dL [facility] MCV (RBC) [Entitic vol] 86.4 fL 79.0 - 94.5 fL [facility] Platelet mean volume (Bld) [Entitic vol] 9.5 fL 8.7 - 12.3 fL [facility] Platelets (Bld) [#/Vol] 210 10*3/uL 146 - 337 K/uL [facility] RBC (Bld) [#/Vol] 4.62 10*6/uL [facility] WBC (Bld) [#/Vol] 4.12 10*3/uL 3.73 - 10. 10 K/uL [facility] CHEM 7 (LYTES,BUN,CREA,GLUC) on 09-02-2023 Anion gap [Moles/Vol] 13 mmol/L Normal 7-17 [facility] Comment on above: Performed By: #### H FP MGO, CHM7 ####[facility] (DEFAULT)[address] [facility] [place] [address] Chloride [Moles/Vol] 105 mmol/L Normal 98-108 [facility] Comment on above: Performed By: #### H FP MGO CHM7 ####[facility] (DEFAULT)[address] [place] [address] CO2 [Moles/Vol] 22 mmol/L Normal 21-31 [facility] Comment on above: Performed By: #### H FP MGO CHM7 ####[facility] (DEFAULT)[address] [place] [address] Creatinine [Mass/Vol] 1.25 mg/dL Normal 0.70-1.30 [facility] Comment on above: Performed By: #### H FP MGO CHM7 ####[facility] (DEFAULT)[address] [place] [address] GFR/1.73 sq M.predicted among non-blacks MDRD (S/P/Bld) [Vol rate/Area] 69 mL/min/{1.73_m2} Normal >=60 [facility] Comment on above: Result Comment: Repo rted eGFR is based on the CKD-EPI 2020 equation using creatinine, age, and sex. Performed By: #### H FP MGO CHM7 ####[facility] (DEFAULT)[address] [place] [address] Glucose [Mass/Vol] 105 mg/dL High 70-99 [facility] Comment on above: Performed By: #### H FP, MGO, CHM7 ####[facility] (DEFAULT)[address] [place] [address] Osmolality [Osmolality] 287 mosm/kg Normal 278-305 [facility] Comment on above: Performed By: #### H ANTWAN MGO CHM7 ####[facility] (DEFAULT)[address] [place] [address] Potassium [Moles/Vol] 4.3 mmol/L Normal 3.5-5.0 [facility] Comment on above: Performed By: #### H ANTWAN MGO CHM7 ####[facility] (DEFAULT)[address] [facility] [place] [address] Sodium [Moles/Vol] 136 mmol/L Normal 135-145 [facility] Comment on above: Performed By: #### H ANTWAN MGO CHM7 ####[facility] (DEFAULT)[address] [facility] [place] [address] Urea nitrogen [Mass/Vol] 16 mg/dL Normal 7-25 [facility] Comment on above: Performed By: #### H ANTWAN MGO CHM7 ####[facility] (DEFAULT)[address] [facility] [place] [address] Urea nitrogen/Creatinine [Mass ratio] 13 mg/mg Normal [facility] Comment on above: Performed By: #### H ANTWAN MGO CHM7 ####[facility] (DEFAULT)[address] [facility] [place] [address] Anion gap [Moles/Vol] 13 mmol/L 7 - 17 mmol/L [facility] Chloride [Moles/Vol] 105 mmol/L 98 - 10 8 mmol/L [facility] CO2 [Moles/Vol] 22 mmol/L 21 - 31 mmol/L [facility] Creatinine [Mass/Vol] 1.25 mg/dL 0.70 - 1.30 mg/dL [facility] eGFR, CKD-EPI, Male 69 - PINF [facility] Glucose [Mass/Vol] 105 mg/dL High 70 - 99 mg/dL [facility] Osmolality Calc [Osmolality] 287 [facility] Potassium [Moles/Vol] 4.3 mmol/L 3.5 - 5.0 mmol/L [facility] Sodium [Moles/Vol] 136 mmol/L 135 - 145 mmol/L [facility] Urea nitrogen [Mass/Vol] 16 mg/dL 7 - 25 mg/dL [facility] Urea nitrogen/Creatinine [Mass ratio] 13 mg/mg [facility] CMV PCR,FLUIDS,URINE,EYE ETC on 09-02-2023 CMV by PCR Result Negative Normal Negative [facility] Comment on above: Result Comment: ---- ADDITIONAL INFORMATION This test was developed and its performance characteristicsdetermined by [facility] in a manner consistent with [employer]. This test has not been cleared or approved bythe U.S. Food and Drug Administration.Test Performed by:[address] Director: Rosendo Bose M.D. Ph.D.; CLIA# [id number] Performed By: #### Y CMV ####[facility] (DEFAULT)[address] [place] [address] CMV BY PCR SOURCE BAL RML Normal [facility] Comment on above: Performed By: #### Y CMV ####[facility] (DEFAULT)[address] [place] [address] CMV by PCR Result Negative Normal Negative [facility] Comment on above: Result Comment: ---- ADDITIONAL INFORMATION This test was developed and its performance characteristicsdetermined by [facility] in a manner consistent with CLIArequirements. This test has not been cleared or approved bythe U.S. Food and Drug Administration.Test Performed by:[address] [address]Grk Director: Rosendo Bose M.D. Ph.D.; CLIA# [id number] Performed By: #### Y CMV ####[facility] (DEFAULT)[address] [facility] [place] [address] CMV BY PCR SOURCE BAL LLL Normal [facility] Comment on above: Performed By: #### Y CMV ####[facility] (DEFAULT)[address] [facility] [place] [address] CYTOLOGY, NON-GYNon 09-02-20 CYTOLOGIC DIAGNOSIS [facility] Comment on above: Result Comment: A. B RONCHOALVEOLAR LAVAGE, LEFT LOWER LOBE (CYTOLOGY):FINAL DIAGNOSIS:No Malignant Cells Are IdentifiedHypocellular Specimen Performed By: #### N ONJOHNNA ####[facility] (DEFAULT)[address] [place] [address] Case Report [facility] Comment on above: Result Comment: Medi abhishek Cytology Report Case: [id number] Provider: Crow Diaz MD Collected: 09/02/2023 08:38 AMOrder[facility] Received: 09/02/2023 10:44 AMPathologist: KENTON Caglepecimen: BRONCHOALVEOLAR LAVAGE, LLL BAL Performed By: #### N ONGNGRAEMEFNA ####[facility] (DEFAULT)[address] [facility] [place] [address] Clinical History Renal transplant. Normal [facility] Comment on above: Performed By: #### N ONGNNONFNA ####[facility] (DEFAULT)[address] [facility] [place] [address] Gross Description Normal [facility] Comment on above: Result Comment: LLL BAL1 ml hazy colorless fld unfixed1 TP slide Pap stainFor Immediate Release to Patient's MyChart? Yes Performed By: #### N ONGNNONFNA ####[facility] (DEFAULT)[address] [facility] [place] [address] FUNGUS CULTUREon 09-02-2023 Bacteria identified Cx Nom (Unsp spec) Normal [facility] Comment on above: Order Comment: Ident ification was performed on the MALDI-TOF mass spectrometer [employer]. This test was developed by [facility]. It has not been cleared or approved by the FDA. The laboratory is regulated under CLIA as qualified to perform high-complexity testing. This test is used for clinical purposes. It should not be regarded as investigational or for research. Result Comment: Grow [id number] [place] Histoplasma capsulatum Performed By: #### F UN ####[facility] (DEFAULT)[address] [place] [address] Bacteria identified Cx Nom (Unsp spec) NO GROWTH DAY 28 OF 28 Normal [facility] Comment on above: Order Comment: BAL f ungal culture Performed By: #### F UN ####[facility] (DEFAULT)[address] [place] [address] HEPATIC FUNCTION PANELon Albumin [Mass/Vol] 3.2 g/dL Low 3.5-5.0 [facility] Comment on above: Performed By: #### H FP, MGO, CHM7 ####[facility] (DEFAULT)[address] [place] [address] ALP [Catalytic activity/Vol] 107 U/L Normal 32-126 [facility] Comment on above: Performed By: #### H FP, MGO, CHM7 ####[facility] (DEFAULT)[address] [place] [address] ALT [Catalytic activity/Vol] 20 U/L Normal 10-52 [facility] Comment on above: Performed By: #### H FP, MGO, CHM7 ####[facility] (DEFAULT)[address] [place] [address] AST [Catalytic activity/Vol] 31 U/L Normal 10-39 [facility] Comment on above: Performed By: #### H DOMENICA MONCADA CHM7 ####[facility] (DEFAULT)[address] [place] [address] Bilirubin [Mass/Vol] 1.0 mg/dL Normal <1.5 [facility] Comment on above: Performed By: #### H ANTWAN MGHELEN MercadoM7 ####[facility] (DEFAULT)[address] [place] [address] Bilirubin.indirect [Mass/Vol] 0.3 mg/dL High <0.3 [facility] Comment on above: Performed By: #### H ANTWAN MGHELEN MercadoMJessica ####[facility] (DEFAULT)[address] [facility] [place] [address] Protein [Mass/Vol] 6.6 g/dL Normal 6.4-8.3 [facility] Comment on above: Performed By: #### H DOMENICA MONCADA CHM7 ####[facility] (DEFAULT)[address] [place] [address] Albumin [Mass/Vol] 3.2 g/dL Low 3.5 - 5.0 g/dL [facility] ALP [Catalytic activity/Vol] 107 U/L 32 - 126 U/L [facility] ALT [Catalytic activity/Vol] 20 U/L 10 - 52 U/L [facility] AST [Catalytic activity/Vol] 31 U/L 10 - 39 U/L [facility] Bilirubin [Mass/Vol] 1.0 mg/dL NINF - 1.5 mg/dL [facility] Bilirubin.direct [Mass/Vol] 0.3 mg/dL High NINF - 0.3 mg/dL [facility] Protein [Mass/Vol] 6.6 g/dL 6.4 - 8.3 g[facility] H[facility] ANTIGEN, FLUIDon 09-02-2023 FH SOURCE BAL RML Normal [facility] Comment on above: Performed By: #### Y FHST ####[facility] (DEFAULT)[address] [place] [address] Histo FLD interpretation Negative Normal [facility] Comment on above: Result Comment: ---- ADDITIONAL INFORMATION Reference interval: None DetectedReportable Range: Positive Results reported in ng/mL from0.20 ng/mL to 20.00 ng/mLPositive Results above 20.00 ng/mL are reported as 'Abovethe Limit of Quantification'Cross-reactions occur with Blastomyces spp., Coccidioidesspp., and Paracoccidioides brasiliensis.This test was developed and its performance characteristicsdetermined by [facility]. It has not beencleared or approved by the FDA; however, FDA clearance orapproval is not currently required for clinical use. Theresults are not intended to be used as the sole means forclinical diagnosis or patient management decisions.Test Performed by:[facility] [place] [address] [place] [address] Performed By: #### Y FHST ####[facility] (DEFAULT)[address] [place] [address] Histoplasma Antigen, FLUID Not detected Normal [facility] Comment on above: Performed By: #### Y FHST ####[facility] (DEFAULT)[address] [place] [address], [place] [address] HISTOPLASMA ANTIGEN,URINEon 09-02-2023 H. capsulatum Ag (U) [Mass/Vol] Not detected ng/mL [facility] H. capsulatum Ag IA Ql (U) Not detected Not Detected [facility] HISTOPLASMA CAPSULATUM/BLAST OMYCES SPECIES,PCR FLUIDon 09-02-2023 HISTO/BLASTO RESULT Negative Normal Not Applicable [facility] Comment on above: Result Comment: A Ne gative result from BAL fluid does not rule out thepresence of Histoplasma capsulatum because the sensitivity from this source is suboptimal. ADDITIONAL INFORMATION This test was developed and its performance characteristicsdetermined by [facility] in a manner consistent with CLIArequirements. This test has not been cleared or approved bythe U.S. Food and Drug Administration.Test Performed by:[address] [address]Ita Director: Rosendo Bose M.D. Ph.D.; CLIA# [id number] Performed By: #### Y HBRP ####[facility] (DEFAULT)[address] [place] [address] Source BAL RML Normal [facility] Comment on above: Performed By: #### Y HBRP ####[facility] (DEFAULT)[address] [place] [address] HIV 1 AND 2 ANTIBODIES/P24 A NTIGENOrdered By: Wilma Luque on 09-02-2023 HIV 1+2 Ab+HIV1 p24 Ag IA Ql Non-Reactive Non Reactive [facility] Interpretation and review of laboratory results Normal [facility] HIV 1 AND 2 ANTIBODIES/P24 A NTIGENon 09-02-2023 HIV-1/HIV-2 Ab With p24 Antigen Non-Reactive Normal Non Reactive [facility] Comment on above: Performed By: #### L [id number] ####[facility] (DEFAULT)[address] [facility] [place] [address] LEGIONELLA CULTUREon 023 Bacteria identified Cx Nom (Unsp spec) NO GROWTH DAY 7 OF 7 Normal [facility] Comment on above: Performed By: #### L EGN ####[facility] (DEFAULT)[address] [facility] [place] [address] Bacteria identified Cx Nom (Unsp spec) NO GROWTH DAY 7 OF 7 Normal [facility] Comment on above: Order Comment: BAL l egionella culture Performed By: #### L EGN ####[facility] (DEFAULT)[address] [place] [address] LEGIONELLA PCRon 09-02-2023 Legionella species, Culture BAL RML Normal [facility] Comment on above: Performed By: #### Y LEGRP ####[facility] (DEFAULT)[address] [place] [address] Legionella, pcr result Negative Normal Not Applicable [facility] Comment on above: Result Comment: ---- ADDITIONAL INFORMATION This test was developed and its performance characteristicsdetermined by [facility] in a manner consistent with CLIArequirements. This test has not been cleared or approved bythe U.S. Food and Drug Administration.Test Performed by:[address] Director: Rosendo Bose M.D. Ph.D.; CLIA# [id number] Performed By: #### Y LEGRP ####[facility] (DEFAULT)[address] [place] [address] LOWER RESPIRATORY CULTURE, B ACTERIALon 09-02-2023 Bacteria identified Cx Nom (Unsp spec) NO GROWTH DAY 2 OF 2 Normal [facility] Comment on above: Performed By: #### R ES ####[facility] (DEFAULT)[address] [place] [address] Microscopic observation Gram stain Nom (Unsp spec) [facility] Comment on above: Result Comment: Cyto centrifuge preparationNeutrophils, RareRed Blood Cells PresentNo organisms seen Performed By: #### R ES ####[facility] (DEFAULT)[address] [place] [address] Bacteria identified Cx Nom (Unsp spec) NO GROWTH DAY 2 OF 2 Normal [facility] Comment on above: Order Comment: BAL b acterial respiratory culture Performed By: #### R ES ####[facility] (DEFAULT)[address] [place] [address] Microscopic observation Gram stain Nom (Unsp spec) Normal [facility] Comment on above: Order Comment: BAL b acterial respiratory culture Result Comment: Cyto centrifuge preparationNeutrophils, ModerateRed Blood Cells PresentNo organisms seen Performed By: #### R ES ####[facility] (DEFAULT)[address] [place] [address] MAGNESIUMon 09-02-2023 Magnesium [Mass/Vol] 1.7 mg/dL Normal 1.6-2.6 [facility] Comment on above: Performed By: #### H FP, MGO, CHM7 ####[facility] (DEFAULT)[address] [place] [address] Interpretation and review of laboratory results Normal [facility] Magnesium [Mass/Vol] 1.7 mg/dL 1.6 - 2 .6 mg/dL [facility] No Panel Informationon 09-02 Interpretation and review of laboratory results Abnormal [facility] PNEUMOCYSTIS JIROVECI,PCRon 09-02-2023 PN Report Status DNR Normal [facility] Comment on above: Performed By: #### Y PNRP ####[facility] (DEFAULT)[address] [place] [address] PN Specimen Source BAL RML Normal [facility] Comment on above: Performed By: #### Y PNRP ####[facility] (DEFAULT)[address] [place] [address] Pneum jiroveci comment DNR Normal [facility] Comment on above: Performed By: #### Y PNRP ####[facility] (DEFAULT)[address] [place] [address] Pneumocystis jiroveci,PCR result Negative Normal Not Applicable [facility] Comment on above: Result Comment: ---- ADDITIONAL INFORMATION This test was developed and its performance characteristicsdetermined by [facility] in a manner consistent with CLIArequirements. This test has not been cleared or approved bythe U.S. Food and Drug Administration.Test Performed by:[address] [address]Kec Director: Rosendo Bose M.D. Ph.D.; CLIA# [id number] Performed By: #### Y PNRP ####[facility] (DEFAULT)[address] [place] [address], [place] [address] PN Report Status DNR Normal [facility] Comment on above: Performed By: #### Y PNRP ####[facility] (DEFAULT)[address] [address] PN Specimen Source BAL LLL Normal [facility] Comment on above: Performed By: #### Y PNRP ####[facility] (DEFAULT)[address] [place] [address], [place] [address] Pneum jiroveci comment DNR Normal [facility] Comment on above: Performed By: #### Y PNRP ####[facility] (DEFAULT)[address] [place] [address] Pneumocystis jiroveci,PCR result Negative Normal Not Applicable [facility] Comment on above: Result Comment: ---- ADDITIONAL INFORMATION This test was developed and its performance characteristicsdetermined by [facility] in a manner consistent with CLIArequirements. This test has not been cleared or approved bythe U.S. Food and Drug Administration.Test Performed by:[address] [address]Cac Director: Rosendo Bose M.D. Ph.D.; CLIA# [id number] Performed By: #### Y [facility] ####[facility] (DEFAULT)[address] [place] [address] TACROLIMUS LEVEL, TROUGH (UT E DRUG LEVEL)on 09-02-2023 Interpretation and review of laboratory results Normal [facility] Tacrolimus (Bld) [Mass/Vol] 4.2 ng/mL [facility] Tacrolimus, Trough 4.2 ng/mL Normal [facility]ana ow Transplant: 4.0-12.0, Therapeutic: 5.0-15.0 [facility] Comment on above: Order Comment: Pleas e draw at specified interval PRIOR to dose. Do not hold dose to wait for level. Specimens batched twice per day, (M-F) and once per day weekendsMethod performed is a chemiluminescent microparticle immunoasssay on the [employer] Supervisor Mapping i2000.The range is based on experience at [facility] and users should be aware that target concentrations vary widely depending on concomitant therapy, time post-transplant, and desired degree of immunosuppression. Performed By: #### T ACRO ####[facility] (DEFAULT)[address] [place] [address] CBC,PLATELETSon 09-01-2023 Hematocrit (Bld) [Volume fraction] 38.9 % Low 39.6-48.8 [facility] Comment on above: Performed By: #### [facility] ####[facility] (DEFAULT)[address] [place] [address] Hemoglobin (Bld) [Mass/Vol] 12.7 g/dL Low 13.4-16.8 [facility] Comment on above: Performed By: #### H [facility] ####[facility] (DEFAULT)[address] [place] [address] MCV (RBC) [Entitic vol] 84.6 fL Normal 79.0-94.5 [facility] Comment on above: Performed By: #### H [facility] ####[facility] (DEFAULT)[address] [place] [address] Mean Cell Hgb 27.6 pg Normal 26.1-33.3 [facility] Comment on above: Performed By: #### H EMOGC ####[facility] (DEFAULT)[address] [place] [address] Mean Cell Hgb Conc 32.6 g/dL Normal 31.9-36.5 [facility] Comment on above: Performed By: #### H EMOGC ####[facility] (DEFAULT)[address] [place] [address] Platelet mean volume (Bld) [Entitic vol] 9.4 fL Normal 8.7-12.3 [facility] Comment on above: Performed By: #### H EMOGC ####[facility] (DEFAULT)[address] [facility] [place] [address] Platelets (Bld) [#/Vol] 209 10*3/uL Normal 146-337 [facility] Comment on above: Performed By: #### H EMOGC ####[facility] (DEFAULT)[address] [place] [address] RBC (Bld) [#/Vol] 4.60 10*6/uL Normal 4.38-5.83 [facility] Comment on above: Performed By: #### H EMOGC ####[facility] (DEFAULT)[address] [place] [address] RBC Distribution 13.4 % Normal 10.9-14.3 [facility] Comment on above: Performed By: #### H EMOGC ####[facility] (DEFAULT)[address] [facility] [place] [address] WBC (Bld) [#/Vol] 4.41 10*3/uL Normal 3.73-10.10 [facility] Comment on above: Performed By: #### H EMOGC ####[facility] (DEFAULT)[address] [place] [address] Erythrocyte distribution width (RBC) [Ratio] 13.4 % 10.9 - 14.3 % [facility] Hematocrit (Bld) [Volume fraction] 38.9 % Low 39.6 - 48.8 % [facility] Hemoglobin (Bld) [Mass/Vol] 12.7 g/dL Low 13.4 - 16.8 g/dL [facility] Interpretation and review of laboratory results Abnormal [facility] MCH (RBC) [Entitic mass] 27.6 pg 26.1 - 33.3 pg [facility] MCHC (RBC) [Mass/Vol] 32.6 g/dL 31.9 - 36.5 g/dL [facility] MCV (RBC) [Entitic vol] 84.6 fL 79.0 - 94.5 fL [facility] Platelet mean volume (Bld) [Entitic vol] 9.4 fL 8.7 - 12.3 fL [facility] Platelets (Bld) [#/Vol] 209 10*3/uL 146 - 337 K/uL [facility] RBC (Bld) [#/Vol] 4.60 10*6/uL [facility] WBC (Bld) [#/Vol] 4.41 10*3/uL 3.73 - 10. 10 K/uL [facility] CHEM 7 (LYTES,BUN,CREA,GLUC) on 09-01-2023 Anion gap [Moles/Vol] 14 mmol/L Normal 7-17 [facility] Comment on above: Performed By: #### H FP, MGO, CHM7 ####[facility] (DEFAULT)[address] [place] [address] Chloride [Moles/Vol] 103 mmol/L Normal 98-108 [facility] Comment on above: Performed By: #### H FP, MGO, CHM7 ####[facility] (DEFAULT)[address] [place] [address] CO2 [Moles/Vol] 21 mmol/L Normal 21-31 [facility] Comment on above: Performed By: #### H DOMENICA MONCADA CHM7 ####[facility] (DEFAULT)[address] [place] [address] Creatinine [Mass/Vol] 1.16 mg/dL Normal 0.70-1.30 [facility] Comment on above: Performed By: #### H DOMENICA MONCADA CHM7 ####[facility] (DEFAULT)[address] [facility] [place] [address] GFR/1.73 sq M.predicted among non-blacks MDRD (S/P/Bld) [Vol rate/Area] 76 mL/min/{1.73_m2} Normal >=60 [facility] Comment on above: Result Comment: Repo rted eGFR is based on the CKD-EPI 2020 equation using creatinine, age, and sex. Performed By: #### H DOMENICA MONCADA CHM7 ####[facility] (DEFAULT)[address] [facility] [place] [address] Glucose [Mass/Vol] 117 mg/dL High 70-99 [facility] Comment on above: Performed By: #### H DOMENICA MONCADA CHM7 ####[facility] (DEFAULT)[address] [facility] [place] [address] Osmolality [Osmolality] 285 mosm/kg Normal 278-305 [facility] Comment on above: Performed By: #### H DOMENICA MONCADA CHMJessica ####[facility] (DEFAULT)[address] [facility] [place] [address] Potassium [Moles/Vol] 4.2 mmol/L Normal 3.5-5.0 [facility] Comment on above: Performed By: #### H ANTWAN MGHELEN MercadoM7 ####[facility] (DEFAULT)[address] [facility] [place] [address] Sodium [Moles/Vol] 134 mmol/L Low 135-145 [facility] Comment on above: Performed By: #### H DOMENICA MONCADA CHM7 ####[facility] (DEFAULT)[address] [facility] [place] [address] Urea nitrogen [Mass/Vol] 18 mg/dL Normal 7-25 [facility] Comment on above: Performed By: #### H DOMENICA MONCADA CHM7 ####[facility] (DEFAULT)[address] [facility] [place] [address] Urea nitrogen/Creatinine [Mass ratio] 16 mg/mg Normal [facility] Comment on above: Performed By: #### H DOMENICA MONCADA CHM7 ####[facility] (DEFAULT)[address] [facility] [place] [address] Anion gap [Moles/Vol] 14 mmol/L 7 - 17 mmol/L [facility] Chloride [Moles/Vol] 103 mmol/L 98 - 10 8 mmol/L [facility] CO2 [Moles/Vol] 21 mmol/L 21 - 31 mmol/L [facility] Creatinine [Mass/Vol] 1.16 mg/dL 0.70 - 1.30 mg/dL [facility] eGFR, CKD-EPI, Male 76 - PINF [facility] Glucose [Mass/Vol] 117 mg/dL High 70 - 99 mg/dL [facility] Osmolality Calc [Osmolality] [facility] Potassium [Moles/Vol] 4.2 mmol/L 3.5 - 5.0 mmol/L [facility] Sodium [Moles/Vol] 134 mmol/L Low 135 - 145 mmol/L [facility] Urea nitrogen [Mass/Vol] 18 mg/dL 7 - 25 mg[facility] Urea nitrogen/Creatinine [Mass ratio] 16 mg/mg [facility] CRYPTOCOCCAL ANTIGENon 09-01 Cryptococcus Antigen,Serum Negative Normal Negative [facility] Comment on above: Performed By: #### C RAG ####[facility] (DEFAULT)[address] [place] [address] Cryptococcus sp Ag Ql (S) Negative Negative [facility] Interpretation and review of laboratory results Normal [facility] HEPATIC FUNCTION PANELon Albumin [Mass/Vol] 3.3 g/dL Low 3.5-5.0 [facility] Comment on above: Performed By: #### H FP, MGO, CHM7 ####[facility] (DEFAULT)[address] [place] [address] ALP [Catalytic activity/Vol] 112 U/L Normal 32-126 [facility] Comment on above: Performed By: #### H FP, MGO, CHM7 ####[facility] (DEFAULT)[address] [place] [address] ALT [Catalytic activity/Vol] 21 U/L Normal 10-52 [facility] Comment on above: Performed By: #### H FP, MGO, CHM7 ####[facility] (DEFAULT)[address] [place] [address] AST [Catalytic activity/Vol] 29 U/L Normal 10-39 [facility] Comment on above: Performed By: #### H FP, MGO, CHM7 ####[facility] (DEFAULT)[address] [place] [address] Bilirubin [Mass/Vol] 1.0 mg/dL Normal <1.5 [facility] Comment on above: Performed By: #### H FP, MGO, CHM7 ####[facility] (DEFAULT)[address] [place] [address] Bilirubin.indirect [Mass/Vol] 0.2 mg/dL Normal <0.3 [facility] Comment on above: Performed By: #### H FP, MGO, CHM7 ####[facility] (DEFAULT)[address] [place] [address] Protein [Mass/Vol] 6.8 g/dL Normal 6.4-8.3 [facility] Comment on above: Performed By: #### H DOMENICA MONCADA CHM7 ####[facility] (DEFAULT)[address] [place] [address] Albumin [Mass/Vol] 3.3 g/dL Low 3.5 - 5.0 g/dL [facility] ALP [Catalytic activity/Vol] 112 U/L 32 - 126 U/L [facility] ALT [Catalytic activity/Vol] 21 U/L 10 - 52 U/L [facility] AST [Catalytic activity/Vol] 29 U/L 10 - 39 U/L [facility] Bilirubin [Mass/Vol] 1.0 mg/dL NINF - 1.5 mg/dL [facility] Bilirubin.direct [Mass/Vol] 0.2 mg/dL NINF - 0.3 mg/dL [facility] Protein [Mass/Vol] 6.8 g/dL 6.4 - 8.3 g/dL [facility] L. pneumophila 1 Ag IA Ql (U )Ordered By: Carolin Miles on 09-01-2023 Interpretation and review of laboratory results Normal [facility] URINARY AGOrdered By: Carolin Miles on 09-01-2023 L. pneumophila 1 Ag IA Ql (U) Negative Negative [facility] MAGNESIUMon 09-01-2023 Magnesium [Mass/Vol] 1.6 mg/dL Normal 1.6-2.6 [facility] Comment on above: Performed By: #### H DOMENICA MONCADA CHM7 ####[facility] (DEFAULT)[address] [place] [address] Interpretation and review of laboratory results Normal [facility] Magnesium [Mass/Vol] 1.6 mg/dL 1.6 - 2 .6 mg/dL [facility] No Panel Informationon 09-01 Interpretation and review of laboratory results Abnormal [facility] PARVOVIRUS (B19) DNA, PCR, B LOODon 09-01-2023 PARVOVIRUS B19 BY RAPID PCR Not detected Normal Not Detected [facility] Comment on above: Result Comment: The primers/probe used in this assay will detectparvovirus B19 and V9 (genotypes 1 # 3) but maynot detect parvovirus genotype 2. The majority ofcirculating Parvovirus B19 strains in the [facility] are genotype 1. Genotype 2 is not believed tocirculate widely in the [facility], but has beenassociated with similar clinical features as genotype1. Genotype 3 is most prevalent in some [facility].This test was developed and its analyticalperformance characteristics have been determinedby [employer], [place], [place].It has not been cleared or approved by the FDA. Thisassay has been validated pursuant to the CLIAregulations and is used for clinical purposes.Test Performed at:[facility] [place] [id number] Benavides M.D., Ph.D.,Director of Laboratories Performed By: #### Y PRVP ####[facility] (DEFAULT)[address] [place] [address] UT SPEC SOURCE Whole Blood Normal [facility] Comment on above: Performed By: #### Y PRVP ####[facility] (DEFAULT)[address] [place] [address] ASPERGILLUS (GALACTOMANNAN), ANTIGENon 08-31-2023 Aspergillus Antigen <0.500 Normal <0.5 [facility] Comment on above: Result Comment: ---- ADDITIONAL INFORMATION This is a qualitative test and the resulted index value isnot indicative of disease severity. Serial testing isrecommended for patients at high risk for invasiveaspergillosis.This assay was performed using the FDA-cleared [employer] Aspergillus Galactomannan EIA.Test Performed by:[facility] [place] [id number] Director: Rosendo Bose M.D. Ph.D.; IA# [id number] Performed By: #### Y ASPR ####[facility] (DEFAULT)[address] [facility] [place] [address] CBC,PLATELETSon 08-31-2023 Hematocrit (Bld) [Volume fraction] 39.4 % Low 39.6-48.8 [facility] Comment on above: Performed By: #### H EMOGC ####[facility] (DEFAULT)[address] [facility] [place] [address] Hemoglobin (Bld) [Mass/Vol] 12.8 g/dL Low 13.4-16.8 [facility] Comment on above: Performed By: #### H EMOGC ####[facility] (DEFAULT)[address] [facility] [place] [address] MCV (RBC) [Entitic vol] 85.1 fL Normal 79.0-94.5 [facility] Comment on above: Performed By: #### H EMOGC ####[facility] (DEFAULT)[address] [facility] [place] [address] Mean Cell Hgb 27.6 pg Normal 26.1-33.3 [facility] Comment on above: Performed By: #### H EMOGC ####[facility] (DEFAULT)[address] [facility] [place] [address] Mean Cell Hgb Conc 32.5 g/dL Normal 31.9-36.5 [facility] Comment on above: Performed By: #### H EMOGC ####[facility] (DEFAULT)[address] [facility] [place] [address] Platelet mean volume (Bld) [Entitic vol] 9.6 fL Normal 8.7-12.3 [facility] Comment on above: Performed By: #### H EMOGC ####[facility] (DEFAULT)[address] [facility] [place] [address] Platelets (Bld) [#/Vol] 228 10*3/uL Normal 146-337 [facility] Comment on above: Performed By: #### H EMO ####[facility] (DEFAULT)[address] [facility] [place] [address] RBC (Bld) [#/Vol] 4.63 10*6/uL Normal 4.38-5.83 [facility] Comment on above: Performed By: #### H EMO ####[facility] (DEFAULT)[address] [facility] [place] [address] RBC Distribution 13.3 % Normal 10.9-14.3 [facility] Comment on above: Performed By: #### H EMO ####[facility] (DEFAULT)[address] [facility] [place] [address] WBC (Bld) [#/Vol] 4.77 10*3/uL Normal 3.73-10.10 [facility] Comment on above: Performed By: #### H [facility] ####[facility] (DEFAULT)[address] [facility] [place] [address] Erythrocyte distribution width (RBC) [Ratio] 13.3 % 10.9 - 14.3 % [facility] Hematocrit (Bld) [Volume fraction] 39.4 % Low 39.6 - 48.8 % [facility] Hemoglobin (Bld) [Mass/Vol] 12.8 g/dL Low 13.4 - 16.8 g/dL [facility] Interpretation and review of laboratory results Abnormal [facility] MCH (RBC) [Entitic mass] 27.6 pg 26.1 - 33.3 pg [facility] MCHC (RBC) [Mass/Vol] 32.5 g/dL 31.9 - 36.5 g/dL [facility] MCV (RBC) [Entitic vol] 85.1 fL 79.0 - 94.5 fL [facility] Platelet mean volume (Bld) [Entitic vol] 9.6 fL 8.7 - 12.3 fL [facility] Platelets (Bld) [#/Vol] 228 10*3/uL 146 - 337 K/uL [facility] RBC (Bld) [#/Vol] 4.63 10*6/uL [facility] WBC (Bld) [#/Vol] 4.77 10*3/uL 3.73 - 10. 10 K/uL [facility] CHEM 7 (LYTES,BUN,CREA,GLUC) on 08-31-2023 Anion gap [Moles/Vol] 13 mmol/L Normal 7-17 [facility] Comment on above: Performed By: #### M GO, HFP, CHM7, FERIB, PROCAL ####[facility] (DEFAULT)[address] [facility] [place] [address] Chloride [Moles/Vol] 102 mmol/L Normal 98-108 [facility] Comment on above: Performed By: #### M GO, HFP, CHM7, FERIB, PROCAL ####[facility] (DEFAULT)[address] [facility] [place] [address] CO2 [Moles/Vol] 23 mmol/L Normal 21-31 [facility] Comment on above: Performed By: #### M GO, HFP, CHM7, FERIB, PROCAL ####[facility] (DEFAULT)[address] [facility] [place] [address] Creatinine [Mass/Vol] 1.37 mg/dL High 0.70-1.30 [facility] Comment on above: Performed By: #### M GO, HFP, CHM7, FERIB, PROCAL ####[facility] (DEFAULT)[address] [place] [address] GFR/1.73 sq M.predicted among non-blacks MDRD (S/P/Bld) [Vol rate/Area] 62 mL/min/{1.73_m2} Normal >=60 [facility] Comment on above: Result Comment: Repo rted eGFR is based on the CKD-EPI 2020 equation using creatinine, age, and sex. Performed By: #### M GO, HFP, CHM7, FERIB, PROCAL ####[facility] (DEFAULT)[address] [facility] [place] [address] Glucose [Mass/Vol] 112 mg/dL High 70-99 [facility] Comment on above: Performed By: #### M GO, HFP, CHM7, FERIB, PROCAL ####[facility] (DEFAULT)[address] [place] [address] Osmolality [Osmolality] 284 mosm/kg Normal 278-305 [facility] Comment on above: Performed By: #### M GO, HFP, CHM7, FERIB, PROCAL ####[facility] (DEFAULT)[address] [facility] [place] [address] Potassium [Moles/Vol] 4.4 mmol/L Normal 3.5-5.0 [facility] Comment on above: Performed By: #### M GO, HFP, CHM7, FERIB, PROCAL ####[facility] (DEFAULT)[address] [facility] [place] [address] Sodium [Moles/Vol] 134 mmol/L Low 135-145 [facility] Comment on above: Performed By: #### M GO, HFP, CHM7, FERIB, PROCAL ####[facility] (DEFAULT)[address] [facility] [place] [address] Urea nitrogen [Mass/Vol] 16 mg/dL Normal 7-25 [facility] Comment on above: Performed By: #### M GO, HFP, CHM7, FERIB, PROCAL ####[facility] (DEFAULT)[address] [place], [place] [address], [place] [address] Urea nitrogen/Creatinine [Mass ratio] 12 mg/mg Normal [facility] Comment on above: Performed By: #### M GO, HFP, CHM7, FERIB, PROCAL ####[facility] (DEFAULT)[address] [place] [address] Anion gap [Moles/Vol] 13 mmol/L 7 - 17 [facility]/L [facility] Chloride [Moles/Vol] 102 mmol/L 98 - 10 8 mmol/L [facility] CO2 [Moles/Vol] 23 mmol/L 21 - 31 mmol/L [facility] Creatinine [Mass/Vol] 1.37 mg/dL High 0.70 - 1.30 mg/dL [facility] eGFR, CKD-EPI, Male 62 - [facility]F [facility] Glucose [Mass/Vol] 112 mg/dL High 70 - 99 mg/dL [facility] Osmolality Calc [Osmolality] 284 [facility] Potassium [Moles/Vol] 4.4 mmol/L 3.5 - 5.0 mmol/L [facility] Sodium [Moles/Vol] 134 mmol/L Low 135 - 145 mmol/L [facility] Urea nitrogen [Mass/Vol] 16 mg/dL 7 - 25 mg/dL [facility] Urea nitrogen/Creatinine [Mass ratio] 12 [facility]BDOMEN/PELVIS WITHOUT CO NTRASTon 08-31-2023 CT ABDOMEN/PELVIS WITHOUT CONTRAST Normal [facility] CT Abdomen and Pelvis WO con traston 08-31-2023 RADIOLOGY RADIOLOGY [facility] Radiology Study observation (narrative) [facility] CT Abdomen and Pelvis WO con trastOrdered By: Chavez Larkin on 08-31-2023 [facility] Work Phone: CT CHEST WITHOUT CONTRASTon 08-31-2023 CT CHEST WITHOUT CONTRAST Normal [facility] CT Chest WO contraston 08-31 RADIOLOGY RADIOLOGY [facility] Radiology Study observation (narrative) [facility] CT Chest WO contrastOrdered By: Daisha Patterson on 08-31-2023 [facility] Work Phone: FERRITINon 08-31-2023 Ferritin [Mass/Vol] 409.0 ng/mL High 10.5 - 3 07.3 ng/mL [facility] Interpretation and review of laboratory results Abnormal [facility] Ferritin [Mass/Vol] 409.0 ng/mL High 10.5-307.3 [facility] Comment on above: Performed By: #### M GO, HFP, CHM7, FERIB, PROCAL ####[facility] (DEFAULT)[address] [facility] [place] [address] HEPATIC FUNCTION PANELon Albumin [Mass/Vol] 3.3 g/dL Low 3.5-5.0 [facility] Comment on above: Performed By: #### M GO, HFP, CHM7, FERIB, PROCAL ####[facility] (DEFAULT)[address] [facility] [place] [address] ALP [Catalytic activity/Vol] 113 U/L Normal 32-126 [facility] Comment on above: Performed By: #### M GO, HFP, CHM7, FERIB, PROCAL ####[facility] (DEFAULT)[address] [facility] [place] [address] ALT [Catalytic activity/Vol] 25 U/L Normal 10-52 [facility] Comment on above: Performed By: #### M GO, HFP, CHM7, FERIB, PROCAL ####[facility] (DEFAULT)[address] [facility] [place] [address] AST [Catalytic activity/Vol] 31 U/L Normal 10-39 [facility] Comment on above: Performed By: #### M GO, HFP, CHM7, FERIB, PROCAL ####[facility] (DEFAULT)[address] [facility] [place] [address] Bilirubin [Mass/Vol] 1.1 mg/dL Normal <1.5 [facility] Comment on above: Performed By: #### M GO, HFP, CHM7, FERIB, PROCAL ####[facility] (DEFAULT)[address] [place] [address] Bilirubin.indirect [Mass/Vol] 0.3 mg/dL High <0.3 [facility] Comment on above: Performed By: #### M TAVO BLOOM, CHM7, FERIB, PROCAL ####[facility] (DEFAULT)[address] [facility] [place] [address] Protein [Mass/Vol] 7.0 g/dL Normal 6.4-8.3 [facility] Comment on above: Performed By: #### M TAVO BLOOM, CHM7, FERIB, PROCAL ####[facility] (DEFAULT)[address] [place] [address] Albumin [Mass/Vol] 3.3 g/dL Low 3.5 - 5.0 g/dL [facility] ALP [Catalytic activity/Vol] 113 U/L 32 - 126 U/L [facility] ALT [Catalytic activity/Vol] 25 U/L 10 - 52 U/L [facility] AST [Catalytic activity/Vol] 31 U/L 10 - 39 U/L [facility] Bilirubin [Mass/Vol] 1.1 mg/dL [facility] mg/dL [facility] Bilirubin.direct [Mass/Vol] 0.3 mg/dL High NINF - 0.3 mg/dL [facility] Protein [Mass/Vol] 7.0 g/dL 6.4 - 8.3 g/dL [facility] LEGIONELLA URINARY AGon 10- Legionella Urinary Antigen Negative Normal Negative [facility] Comment on above: Performed By: #### L EGION ####[facility] (DEFAULT)[address] [place] [address] MAGNESIUMon 08-31-2023 Magnesium [Mass/Vol] 1.7 mg/dL Normal 1.6-2.6 [facility] Comment on above: Performed By: #### M ATVO BLOOM, CHM7, FERIB, PROCAL ####[facility] (DEFAULT)[address] [place] [address] Interpretation and review of laboratory results Normal [facility] Magnesium [Mass/Vol] 1.7 mg/dL 1.6 - 2 .6 mg/dL [facility] No Panel Informationon 08-31 Interpretation and review of laboratory results Abnormal [facility] PROCALCITONINon 08-31-2023 Interpretation and review of laboratory results Normal [facility] Procalcitonin [Mass/Vol] 0.23 ng/mL NINF - 0.50 ng/mL [facility] Procalcitonin 0.23 ng/mL Normal <0.50 [facility] Comment on above: Result Comment: Proc [...] and trend procalcitonin in various clinical settings. [email or web address]=/[email or web address] [email or web address]&action=[email or web address] common cutoffs associated with bacterial infections are as follows.Respiratory tract infections: >0.25 ng/mLSepsis/septic shock: >0.5 ng/mLProcalcitonin should not be used alone as a diagnostic tool, however. All procalcitonin results should be interpreted in association with the patients clinical condition and all laboratory findings. Performed By: #### M MERLE, TAVO, NATHANIEL, CATINA, ANG ####[facility] (DEFAULT)[address] [place] [address] TACROLIMUS LEVEL, TROUGH (UT E DRUG LEVEL)Ordered By: Yanira Marcum on 08-31-2023 Interpretation and review of laboratory results Normal [facility] Tacrolimus (Bld) [Mass/Vol] 5.9 ng/mL [facility] TACROLIMUS LEVEL, TROUGH (UT E DRUG LEVEL)on 08-31-2023 Tacrolimus, Trough 5.9 ng/mL Normal [facility] ow Transplant: 4.0-12.0, Therapeutic: 5.0-15.0 [facility] Comment on above: Order Comment: Pleas e draw at specified interval PRIOR to dose. Do not hold dose to wait for level. Specimens batched twice per day, (M-F) and once per day weekendsMethod performed is a chemiluminescent microparticle immunoasssay on the [employer] i2000.The range is based on experience at [facility] and users should be aware that target concentrations vary widely depending on concomitant therapy, time post-transplant, and desired degree of immunosuppression. Performed By: #### T ACRO ####[facility] (DEFAULT)[address] [place] [address] URINE CULTUREOrdered By: Jorge crowe Held on 08-31-2023 Bacteria identified Cx Nom (Unsp spec) No Growth [facility] DARYL AURIS SCREEN BY PCRO rdered By: Mynor Alejandro on 08-30-2023 Daryl auris Screen by PCR Not detected Not Detected [facility] Interpretation and review of laboratory results Normal [facility] CBC,PLATELETSon 08-30-2023 Hematocrit (Bld) [Volume fraction] 41.3 % Normal 39.6-48.8 [facility] Comment on above: Performed By: #### H [facility] ####[facility] (DEFAULT)[address] [place] [address] Hemoglobin (Bld) [Mass/Vol] 13.2 g/dL Low 13.4-16.8 [facility] Comment on above: Performed By: #### H EMO ####[facility] (DEFAULT)[address] [place] [address] MCV (RBC) [Entitic vol] 85.5 fL Normal 79.0-94.5 [facility] Comment on above: Performed By: #### H EMOGC ####[facility] (DEFAULT)[address] [place] [address] Mean Cell Hgb 27.3 pg Normal 26.1-33.3 [facility] Comment on above: Performed By: #### H EMOGC ####[facility] (DEFAULT)[address] [place] [address] Mean Cell Hgb Conc 32.0 g/dL Normal 31.9-36.5 [facility] Comment on above: Performed By: #### H EMOGC ####[facility] (DEFAULT)[address] [place] [address] Platelet mean volume (Bld) [Entitic vol] 9.2 fL Normal 8.7-12.3 [facility] Comment on above: Performed By: #### H EMOGC ####[facility] (DEFAULT)[address] [place] [address] Platelets (Bld) [#/Vol] 235 10*3/uL Normal 146-337 [facility] Comment on above: Performed By: #### H EMOGC ####[facility] (DEFAULT)[address] [place] [address] RBC (Bld) [#/Vol] 4.83 10*6/uL Normal 4.38-5.83 [facility] Comment on above: Performed By: #### H EMOGC ####[facility] (DEFAULT)[address] [place] [address] RBC Distribution 13.3 % Normal 10.9-14.3 [facility] Comment on above: Performed By: #### H EMOGC ####[facility] (DEFAULT)[address] [place] [address] WBC (Bld) [#/Vol] 4.96 10*3/uL Normal 3.73-10.10 [facility] Comment on above: Performed By: #### H [facility] ####[facility] (DEFAULT)[address] [place] [address] Erythrocyte distribution width (RBC) [Ratio] 13.3 % 10.9 - 14.3 % [facility] Hematocrit (Bld) [Volume fraction] 41.3 % 39.6 - 48.8 % [facility] Hemoglobin (Bld) [Mass/Vol] 13.2 g/dL Low 13.4 - 16.8 g/dL [facility] Interpretation and review of laboratory results Abnormal [facility] MCH (RBC) [Entitic mass] 27.3 pg 26.1 - 33.3 pg [facility] MCHC (RBC) [Mass/Vol] 32.0 g/dL 31.9 - 36.5 g/dL [facility] MCV (RBC) [Entitic vol] 85.5 fL 79.0 - 94.5 fL [facility] Platelet mean volume (Bld) [Entitic vol] 9.2 fL 8.7 - 12.3 fL [facility] Platelets (Bld) [#/Vol] 235 10*3/uL 146 - 337 K/uL [facility] RBC (Bld) [#/Vol] 4.83 10*6/uL [facility] WBC (Bld) [#/Vol] 4.96 10*3/uL 3.73 - 10. 10 K/uL [facility] CHEM 7 (LYTES,BUN,CREA,GLUC) on 08-30-2023 Anion gap [Moles/Vol] 14 mmol/L Normal 7-17 [facility] Comment on above: Performed By: #### NATHANIEL RAMÍREZ, HFP ####[facility] (DEFAULT)[address] [place] [address] Chloride [Moles/Vol] 102 mmol/L Normal 98-108 [facility] Comment on above: Performed By: #### NATHANIEL RAMÍREZ, HFP ####[facility] (DEFAULT)[address] [place] [address] CO2 [Moles/Vol] 20 mmol/L Low 21-31 [facility] Comment on above: Performed By: #### NATHANIEL RAMÍREZ, HFP ####[facility] (DEFAULT)[address] [place] [address] Creatinine [Mass/Vol] 1.56 mg/dL High 0.70-1.30 [facility] Comment on above: Performed By: #### NATHANIEL RAMÍREZ, HFP ####[facility] (DEFAULT)[address] [facility] [place] [address] GFR/1.73 sq M.predicted among non-blacks MDRD (S/P/Bld) [Vol rate/Area] 53 mL/min/{1.73_m2} Low >=60 [facility] Comment on above: Result Comment: Repo rted eGFR is based on the CKD-EPI 2020 equation using creatinine, age, and sex. Performed By: #### NATHANIEL RAMÍREZ, HFP ####[facility] (DEFAULT)[address] [facility] [place] [address] Glucose [Mass/Vol] 123 mg/dL High 70-99 [facility] Comment on above: Performed By: #### NATHANIEL RAMÍREZ, HFP ####[facility] (DEFAULT)[address] [facility] [place] [address] Osmolality [Osmolality] 281 mosm/kg Normal 278-305 [facility] Comment on above: Performed By: #### NATHANIEL RAMÍREZ, HFP ####[facility] (DEFAULT)[address] [place] [address] Potassium [Moles/Vol] 4.3 mmol/L Normal 3.5-5.0 [facility] Comment on above: Performed By: #### NATHANIEL RAMÍREZ, HFP ####[facility] (DEFAULT)[address] [facility] [place] [address] Sodium [Moles/Vol] 132 mmol/L Low 135-145 [facility] Comment on above: Performed By: #### NATHANIEL RAMÍREZ, HFP ####[facility] (DEFAULT)[address] [facility] [place] [address] Urea nitrogen [Mass/Vol] 16 mg/dL Normal 7-25 [facility] Comment on above: Performed By: #### NATHANIEL RAMÍREZ, HFP ####[facility] (DEFAULT)[address] [facility] [place] [address] Urea nitrogen/Creatinine [Mass ratio] 10 mg/mg Normal [facility] Comment on above: Performed By: #### NATHANIEL RAMÍREZ, HFP ####[facility] (DEFAULT)[address] [facility] [place] [address] Anion gap [Moles/Vol] 14 mmol/L 7 - 17 mmol/L [facility] Chloride [Moles/Vol] 102 mmol/L 98 - 10 8 mmol/L [facility] CO2 [Moles/Vol] 20 mmol/L Low 21 - 31 mmol/L [facility] Creatinine [Mass/Vol] 1.56 mg/dL High 0.70 - 1.30 mg/dL [facility] eGFR, CKD-EPI, Male 54 Low - PINF [facility] Glucose [Mass/Vol] 123 mg/dL High 70 - 99 mg/dL [facility] Osmolality Calc [Osmolality] 281 [facility] Potassium [Moles/Vol] 4.3 mmol/L 3.5 - 5.0 mmol/L [facility] Sodium [Moles/Vol] 132 mmol/L Low 135 - 145 mmol/L [facility] Urea nitrogen [Mass/Vol] 16 mg/dL 7 - 25 mg/dL [facility] Urea nitrogen/Creatinine [Mass ratio] 10 mg/mg [facility] EXTRA MICROon 08-30-2023 [facility] HEPATIC FUNCTION PANELon Albumin [Mass/Vol] 3.7 g/dL Normal 3.5-5.0 [facility] Comment on above: Performed By: #### M GO CHM7, HFP ####[facility] (DEFAULT)[address] [place] [address] ALP [Catalytic activity/Vol] 115 U/L Normal 32-126 [facility] Comment on above: Performed By: #### M GO, CHM7, HFP ####[facility] (DEFAULT)[address] [place] [address] ALT [Catalytic activity/Vol] 22 U/L Normal 10-52 [facility] Comment on above: Performed By: #### M GO CHM7, HFP ####[facility] (DEFAULT)[address] [place] [address] AST [Catalytic activity/Vol] 34 U/L Normal 10-39 [facility] Comment on above: Performed By: #### M GO, CHM7, HFP ####[facility] (DEFAULT)[address] [place] [address] Bilirubin [Mass/Vol] 1.2 mg/dL Normal <1.5 [facility] Comment on above: Performed By: #### M GO, CHM7, HFP ####[facility] (DEFAULT)[address] [place] [address] Bilirubin.indirect [Mass/Vol] 0.3 mg/dL High <0.3 [facility] Comment on above: Performed By: #### M GO, CHM7, HFP ####[facility] (DEFAULT)[address] [place] [address] Protein [Mass/Vol] 7.7 g/dL Normal 6.4-8.3 [facility] Comment on above: Performed By: #### M GO, CHM7, HFP ####[facility] (DEFAULT)[address] [place] [address] Albumin [Mass/Vol] 3.7 g/dL 3.5 - 5.0 g/dL [facility] ALP [Catalytic activity/Vol] 115 U/L 32 - 126 U/L [facility] ALT [Catalytic activity/Vol] 22 U/L 10 - 52 U/L [facility] AST [Catalytic activity/Vol] 34 U/L 10 - 39 U/L [facility] Bilirubin [Mass/Vol] 1.2 mg/dL NINF - 1.5 mg/dL [facility] Bilirubin.direct [Mass/Vol] 0.3 mg/dL High NINF - 0.3 mg/dL [facility] Protein [Mass/Vol] 7.7 g/dL 6.4 - 8.3 g/dL [facility] MAGNESIUMon 08-30-2023 Magnesium [Mass/Vol] 1.8 mg/dL Normal 1.6-2.6 [facility] Comment on above: Performed By: #### M MERLE, CHM7, [facility] ####[facility] (DEFAULT)[address] [place] [address] Interpretation and review of laboratory results Normal [facility] Magnesium [Mass/Vol] 1.8 mg/dL 1.6 - 2 .6 mg/dL [facility] No Panel Informationon 08-30 Interpretation and review of laboratory results Abnormal [facility] CBC,PLATELETSon 08-29-2023 Hematocrit (Bld) [Volume fraction] 37.6 % Low 39.6-48.8 [facility] Comment on above: Performed By: #### [facility] ####[facility] (DEFAULT)[address] [place] [address] Hemoglobin (Bld) [Mass/Vol] 12.2 g/dL Low 13.4-16.8 [facility] Comment on above: Performed By: #### H EMO ####[facility] (DEFAULT)[address] [place] [address] MCV (RBC) [Entitic vol] 85.1 fL Normal 79.0-94.5 [facility] Comment on above: Performed By: #### H EMOGC ####[facility] (DEFAULT)[address] [place] [address] Mean Cell Hgb 27.6 pg Normal 26.1-33.3 [facility] Comment on above: Performed By: #### H EMOGC ####[facility] (DEFAULT)[address] [facility] [place] [address] Mean Cell Hgb Conc 32.4 g/dL Normal 31.9-36.5 [facility] Comment on above: Performed By: #### H EMOGC ####[facility] (DEFAULT)[address] [facility] [place] [address] Platelet mean volume (Bld) [Entitic vol] 9.4 fL Normal 8.7-12.3 [facility] Comment on above: Performed By: #### H EMOGC ####[facility] (DEFAULT)[address] [facility] [place] [address] Platelets (Bld) [#/Vol] 233 10*3/uL Normal 146-337 [facility] Comment on above: Performed By: #### H EMOGC ####[facility] (DEFAULT)[address] [place] [address] RBC (Bld) [#/Vol] 4.42 10*6/uL Normal 4.38-5.83 [facility] Comment on above: Performed By: #### H EMOGC ####[facility] (DEFAULT)[address] [facility] [place] [address] RBC Distribution 13.4 % Normal 10.9-14.3 [facility] Comment on above: Performed By: #### H EMOGC ####[facility] (DEFAULT)[address] [facility] [place] [address] WBC (Bld) [#/Vol] 4.92 10*3/uL Normal 3.73-10.10 [facility] Comment on above: Performed By: #### [facility] ####[facility] (DEFAULT)[address] [place] [address] Erythrocyte distribution width (RBC) [Ratio] 13.4 % 10.9 - 14.3 % [facility] Hematocrit (Bld) [Volume fraction] 37.6 % Low 39.6 - 48.8 % [facility] Hemoglobin (Bld) [Mass/Vol] 12.2 g/dL Low 13.4 - 16.8 g/dL [facility] Interpretation and review of laboratory results Abnormal [facility] MCH (RBC) [Entitic mass] 27.6 pg 26.1 - 33.3 pg [facility] MCHC (RBC) [Mass/Vol] 32.4 g/dL 31.9 - 36.5 g/dL [facility] MCV (RBC) [Entitic vol] 85.1 fL 79.0 - 94.5 fL [facility] Platelet mean volume (Bld) [Entitic vol] 9.4 fL 8.7 - 12.3 fL [facility] Platelets (Bld) [#/Vol] 233 10*3/uL 146 - 337 K/uL [facility] RBC (Bld) [#/Vol] 4.42 10*6/uL [facility] WBC (Bld) [#/Vol] 4.92 10*3/uL 3.73 - 10. 10 K/uL [facility] CHEM 7 (LYTES,BUN,CREA,GLUC) on 08-29-2023 Anion gap [Moles/Vol] 13 mmol/L Normal 7-17 [facility] Comment on above: Performed By: #### M GO, CHM7, GGTB, HFP ####[facility] (DEFAULT)[address] [place] [address] Chloride [Moles/Vol] 105 mmol/L Normal 98-108 [facility] Comment on above: Performed By: #### M GO, CHM7, GGTB, HFP ####[facility] (DEFAULT)[address] [place] [address] CO2 [Moles/Vol] 20 mmol/L Low 21-31 [facility] Comment on above: Performed By: #### M GO, CHM7, GGTB, HFP ####[facility] (DEFAULT)[address] [place] [address] Creatinine [Mass/Vol] 1.55 mg/dL High 0.70-1.30 [facility] Comment on above: Performed By: #### M GO, CHM7, GGTB, HFP ####[facility] (DEFAULT)[address] [facility] [place] [address] GFR/1.73 sq M.predicted among non-blacks MDRD (S/P/Bld) [Vol rate/Area] 54 mL/min/{1.73_m2} Low >=60 [facility] Comment on above: Result Comment: Repo rted eGFR is based on the CKD-EPI 2020 equation using creatinine, age, and sex. Performed By: #### M GO, CHM7, GGTB, HFP ####[facility] (DEFAULT)[address] [facility] [place] [address] Glucose [Mass/Vol] 108 mg/dL High 70-99 [facility] Comment on above: Performed By: #### M GO, CHM7, GGTB, HFP ####[facility] (DEFAULT)[address] [facility] [place] [address] Osmolality [Osmolality] 283 mosm/kg Normal 278-305 [facility] Comment on above: Performed By: #### M GO, CHM7, GGTB, HFP ####[facility] (DEFAULT)[address] [place] [address] Potassium [Moles/Vol] 4.5 mmol/L Normal 3.5-5.0 [facility] Comment on above: Performed By: #### M GO, CHM7, GGTB, HFP ####[facility] (DEFAULT)[address] [facility] [place] [address] Sodium [Moles/Vol] 133 mmol/L Low 135-145 [facility] Comment on above: Performed By: #### M GO, CHM7, GGTB, HFP ####[facility] (DEFAULT)[address] [facility] [place] [address] Urea nitrogen [Mass/Vol] 19 mg/dL Normal 7-25 [facility] Comment on above: Performed By: #### M GO, CHM7, GGTB, HFP ####[facility] (DEFAULT)[address] [facility] [place] [address] Urea nitrogen/Creatinine [Mass ratio] 12 mg/mg Normal [facility] Comment on above: Performed By: #### M GO, CHM7, GGTB, HFP ####[facility] (DEFAULT)[address] [facility] [place] [address] Anion gap [Moles/Vol] 13 mmol/L 7 - 17 mmol/L [facility] Chloride [Moles/Vol] 105 mmol/L 98 - 10 8 mmol/L [facility] CO2 [Moles/Vol] 20 mmol/L Low 21 - 31 mmol/L [facility] Creatinine [Mass/Vol] 1.55 mg/dL High 0.70 - 1.30 mg/dL [facility] eGFR, CKD-EPI, Male 55 Low - [facility] Glucose [Mass/Vol] 108 mg/dL High 70 - 99 mg/dL [facility] Osmolality Calc [[facility]olality] 283 [facility] Potassium [Moles/Vol] 4.5 mmol/L 3.5 - 5.0 mmol/L [facility] Sodium [Moles/Vol] 133 mmol/L Low 135 - 145 mmol/L [facility] Urea nitrogen [Mass/Vol] 19 mg/dL 7 - 25 mg/dL [facility] Urea nitrogen/Creatinine [Mass ratio] 12 mg/mg [facility] GGTon 08-29-2023 Gamma glutamyl transferase [Catalytic activity/Vol] 64 U/L 8 - 64 U/L [facility] Interpretation and review of laboratory results Normal [facility] Gamma glutamyl transferase [Catalytic activity/Vol] 64 U/L Normal 8-64 [facility] Comment on above: Performed By: #### M GO, CHM7, GGTB, HFP ####[facility] (DEFAULT)[address] [facility] [place] [address] HEPATIC FUNCTION PANELon Albumin [Mass/Vol] 3.3 g/dL Low 3.5-5.0 [facility] Comment on above: Performed By: #### M GO, CHM7, GGTB, HFP ####[facility] (DEFAULT)[address] [facility] [place] [address] ALP [Catalytic activity/Vol] 103 U/L Normal 32-126 [facility] Comment on above: Performed By: #### M GO, CHM7, GGTB, HFP ####[facility] (DEFAULT)[address] [facility] [place] [address] ALT [Catalytic activity/Vol] 18 U/L Normal 10-52 [facility] Comment on above: Performed By: #### M GO, CHM7, GGTB, HFP ####[facility] (DEFAULT)[address] [facility] [place] [address] AST [Catalytic activity/Vol] 27 U/L Normal 10-39 [facility] Comment on above: Performed By: #### M GO, CHM7, GGTB, HFP ####[facility] (DEFAULT)[address] [facility] [place] [address] Bilirubin [Mass/Vol] 1.1 mg/dL Normal <1.5 [facility] Comment on above: Performed By: #### M GO, CHM7, GGTB, HFP ####[facility] (DEFAULT)[address] [place] [address] Bilirubin.indirect [Mass/Vol] 0.3 mg/dL High <0.3 [facility] Comment on above: Performed By: #### M GO, CHM7, GGTB, HFP ####[facility] (DEFAULT)[address] [facility] [place] [address] Protein [Mass/Vol] 6.8 g/dL Normal 6.4-8.3 [facility] Comment on above: Performed By: #### M GO, CHM7, GGTB, HFP ####[facility] (DEFAULT)[address] [facility] [place] [address] Albumin [Mass/Vol] 3.3 g/dL Low 3.5 - 5.0 g/dL [facility] ALP [Catalytic activity/Vol] 103 U/L 32 - 126 U/L [facility] ALT [Catalytic activity/Vol] 18 U/L 10 - 52 U/L [facility] AST [Catalytic activity/Vol] 27 U/L 10 - 39 U/L [facility] Bilirubin [Mass/Vol] 1.1 mg/dL [facility] mg/dL [facility] Bilirubin.direct [Mass/Vol] 0.3 mg/dL High NINF - 0.3 mg/dL [facility] Protein [Mass/Vol] 6.8 g/dL 6.4 - 8.3 g/dL [facility] HISTOPLASMA AND BLASTOMYCES ANTIGEN, ENZYME IMMUNOASSAY, SERMon 08-29-2023 Histoplasma/Blastomy antonia Ag Result Detected Invalid Interpretation Code Not Detected [facility] Comment on above: Result Comment: Anti gen from Histoplasma or Blastomyces (unable todifferentiate) detected. Result should be correlated withclinical presentation, exposure history, and otherdiagnostic procedures, including culture, serology,histopathology, and/or radiographic findings, to aid in thedifferentiation between histoplasmosis and blastomycosis.CRITICAL RESULT Performed By: #### H IBAG ####[facility] (DEFAULT)[address] [facility] [place] [address] Histoplasma/Blastomy antonia Ag Value 5.3 ng/mL Normal [facility] Comment on above: Result Comment: ---- ADDITIONAL INFORMATION This test was developed and its performance characteristicsdetermined by [facility] in a manner consistent with CLIArequirements. This test has not been cleared or approved bythe U.S. Food and Drug Administration.Test Performed by:[facility] - [address] Director: Rosendo Bose M.D. Ph.D.; CLIA# [id number] Performed By: #### H IBAG ####[facility] (DEFAULT)[address] [place] [address], [place] [address] HISTOPLASMA ANTIGEN,URINEon 08-29-2023 HISTOPLASM AG, URINE Not detected Normal Not Detected [facility] Comment on above: Result Comment: No H istoplasma antigen detected.False negative results may occur. Repeat testing on anew specimen should be considered if clinically indicated. Performed By: #### Y HISTG ####[facility] (DEFAULT)[address] [facility] [place] [address] Histoplasma Ag Value Not detected Normal [facility] Comment on above: Result Comment: ---- ADDITIONAL INFORMATION This test has been modified from the sales strategy manager'sinstructions. Its performance characteristics weredetermined by [facility] in a manner consistent withCLIA requirements. This test has not been cleared orapproved by the U.S. Food and Drug Administration.Test Performed by:[facility] [place] [id number] Director: Rosendo Bose M.D. Ph.D.; CLIA# [id number] Performed By: #### Y HISTG ####[facility] (DEFAULT)[address] [facility] [place] [address] MAGNESIUMon 08-29-2023 Magnesium [Mass/Vol] 1.7 mg/dL Normal 1.6-2.6 [facility] Comment on above: Performed By: #### M GO, CHM7, GGTB, HFP ####[facility] (DEFAULT)[address] [facility] [place] [address] Interpretation and review of laboratory results Normal [facility] Magnesium [Mass/Vol] 1.7 mg/dL 1.6 - 2 .6 mg/dL [facility] No Panel Informationon 08-29 Interpretation and review of laboratory results Abnormal [facility] PT,INR,PTTon 08-29-2023 aPTT Coag (Bld) [Time] 29.3 s Normal 24.0-34.3 [facility] Comment on above: Performed By: #### P TPTT ####[facility] (DEFAULT)[address] [place] [address], [place] [address] INR Coag (PPP) [Relative time] 1.1 {INR} Normal 0.9-1.1 [facility] Comment on above: Performed By: #### P TPTT ####[facility] (DEFAULT)[address] [facility] [place] [address] PT Coag (PPP) [Time] 13.8 s Normal 11.9-14.2 [facility] Comment on above: Performed By: #### P TPTT ####[facility] (DEFAULT)[address] [place] [address], [place] [address] aPTT Coag (PPP) [Time] 29.3 s [facility] INR Coag (Bld) [Relative time] 1.1 {INR} 0.9 - 1.1 [facility] Interpretation and review of laboratory results Normal [facility] PT Coag (PPP) [Time] 13.8 s [facility] Portable XR Chest Viewson RADIOLOGY RADIOLOGY [facility] Portable XR Chest ViewsOrder ed By: Gerald Baer on 08-29-2023 [facility] Work Phone: TACROLIMUS LEVEL, TROUGH (UT E DRUG LEVEL)on 08-29-2023 Interpretation and review of laboratory results Normal [facility] Tacrolimus (Bld) [Mass/Vol] 8.9 ng/mL [facility] Tacrolimus, Trough 8.9 ng/mL Normal [facility] Transplant: 4.0-12.0, Therapeutic: 5.0-15.0 [facility] Comment on above: Order Comment: Pleas e draw at specified interval PRIOR to dose. Do not hold dose to wait for level. Specimens batched twice per day, (M-F) and once per day weekendsMethod performed is a chemiluminescent microparticle immunoasssay on the [employer] i2000.The range is based on experience at [facility] and users should be aware that target concentrations vary widely depending on concomitant therapy, time post-transplant, and desired degree of immunosuppression. Performed By: #### T ACRO ####[facility] (DEFAULT)[address] [place] [address] Tacrolimus, Trough 8.7 ng/mL Normal [facility] Transplant: 4.0-12.0, Therapeutic: 5.0-15.0 [facility] Comment on above: Order Comment: Pleas e draw at specified interval PRIOR to dose. Do not hold dose to wait for level. Specimens batched twice per day, (M-F) and once per day weekendsMethod performed is a chemiluminescent microparticle immunoasssay on the [employer] i2000.The range is based on experience at [facility] and users should be aware that target concentrations vary widely depending on concomitant therapy, time post-transplant, and desired degree of immunosuppression. Performed By: #### T ACRO ####[facility] (DEFAULT)[address] [place] [address] TACROLIMUS LEVEL, TROUGH (UT E DRUG LEVEL)Ordered By: Roxanne Louie on 08-29-2023 Interpretation and review of laboratory results Normal [facility] Tacrolimus (Bld) [Mass/Vol] 8.7 ng[facility] URINALYSIS REFLEX TO CULTURE PERFORMABLEon 08-29-2023 Appearance (U) Clear Normal Clear [facility] Comment on above: Order Comment: For i ndwelling catheters, specimen collection is acceptable on catheter day 1 and 2 only. ? Performed By: #### U [id number] ####[facility] (DEFAULT)[address] [place], [place] [address], [place] [address] Bacteria ABSENT Normal ABSENT [facility] Comment on above: Order Comment: For i ndwelling catheters, specimen collection is acceptable on catheter day 1 and 2 only. ? Performed By: #### U [id number] ####[facility] (DEFAULT)[address] [facility] [place] [address] Blood Urine Trace Abnormal Negative [facility] Comment on above: Order Comment: For i ndwelling catheters, specimen collection is acceptable on catheter day 1 and 2 only. ? Performed By: #### U [id number] ####[facility] (DEFAULT)[address] [place], [place] [address], [place] [address] Calcium Oxalate Crystals PRESENT Normal [facility] Comment on above: Order Comment: For i ndwelling catheters, specimen collection is acceptable on catheter day 1 and 2 only. ? Performed By: #### U [id number] ####[facility] (DEFAULT)[address] [facility] [place] [address] Color (U) Yellow Normal Yellow [facility] Comment on above: Order Comment: For i ndwelling catheters, specimen collection is acceptable on catheter day 1 and 2 only. ? Performed By: #### U [id number] ####[facility] (DEFAULT)[address] [facility] [place] [address] Glucose Ql (U) Negative Normal Negative [facility] Comment on above: Order Comment: For i ndwelling catheters, specimen collection is acceptable on catheter day 1 and 2 only. ? Performed By: #### U [id number] ####[facility] (DEFAULT)[address] [place] [address] Ketones Ql (U) Negative Normal Negative [facility] Comment on above: Order Comment: For i ndwelling catheters, specimen collection is acceptable on catheter day 1 and 2 only. ? Performed By: #### U [id number] ####[facility] (DEFAULT)[address] [place] [address] Leukocyte esterase Test strip Ql (U) Negative Normal Negative [facility] Comment on above: Order Comment: For i ndwelling catheters, specimen collection is acceptable on catheter day 1 and 2 only. ? Performed By: #### U [id number] ####[facility] (DEFAULT)[address] [place] [address] Nitrites Urine Negative Normal Negative [facility] Comment on above: Order Comment: For i ndwelling catheters, specimen collection is acceptable on catheter day 1 and 2 only. ? Performed By: #### U [id number] ####[facility] (DEFAULT)[address] [place] [address] pH (U) 6.0 [pH] Normal 5.0-7.0 [facility] Comment on above: Order Comment: For i ndwelling catheters, specimen collection is acceptable on catheter day 1 and 2 only. ? Performed By: #### U [id number] ####[facility] (DEFAULT)[address] [place] [address] Protein Urine Negative Normal Negative [facility] Comment on above: Order Comment: For i ndwelling catheters, specimen collection is acceptable on catheter day 1 and 2 only. ? Performed By: #### U [id number] ####[facility] (DEFAULT)[address] [place] [address] RBC Urine 3-5 Abnormal 0-2 [facility] Comment on above: Order Comment: For i ndwelling catheters, specimen collection is acceptable on catheter day 1 and 2 only. ? Performed By: #### U [id number] ####[facility] (DEFAULT)[address] [place] [address], [place] [address] Specific [place] Urine 1.015 Normal 1.001-1.035 [facility] Comment on above: Order Comment: For i ndwelling catheters, specimen collection is acceptable on catheter day 1 and 2 only. ? Performed By: #### U [id number] ####[facility] (DEFAULT)[address] [place] [address], [place] [address] Squamous/Epithelial Cells 0-2/hpf Normal 0-2/hpf, 3-5/hpf = 1+ [facility] Comment on above: Order Comment: For i ndwelling catheters, specimen collection is acceptable on catheter day 1 and 2 only. ? Performed By: #### U [id number] ####[facility] (DEFAULT)[address] [place] [address], [place] [address] Urobilinogen Urine 1.0 E.U./dL Normal 0.2 E.U/d L, 1.0 E.U/dL [facility] Comment on above: Order Comment: For i ndwelling catheters, specimen collection is acceptable on catheter day 1 and 2 only. ? Performed By: #### U [id number] ####[facility] (DEFAULT)[address] [place] [address], [place] [address] WBC Urine 0 - 5 Normal 0 - 5 [facility] Comment on above: Order Comment: For i ndwelling catheters, specimen collection is acceptable on catheter day 1 and 2 only. ? Performed By: #### U [id number] ####[facility] (DEFAULT)[address] [place] [address], [place] [address] URINALYSIS REFLEX TO CULTURE PERFORMABLEOrdered By: Shaji Kelly on 08-29-2023 Appearance (U) Clear Clear [facility] Bacteria LM Ql (Urine sed) ABSENT ABSENT [facility] Calcium Oxalate Crystals PRESENT [facility] Color (U) Yellow Yellow [facility] Epithelial cells.squamous LM Ql (Urine sed) 0-2/hpf 0-2/hpf, 3-5/hpf = 1+ [facility] Glucose Test strip (U) [Mass/Vol] Negative Negative [facility] Interpretation and review of laboratory results Abnormal [facility] Ketones (U) [Mass/Vol] Negative Negative [facility] Leukocyte esterase Test strip Ql (U) Negative Negative [facility] Nitrite Ql (U) Negative Negative [facility] pH (U) 6.0 [pH] 5.0 - 7.0 [facility] Protein (U) [Mass/Vol] Negative Negative [facility] RBC (U) [#/Vol] Trace Abnormal Negative [facility] RBC LM.HPF (Urine sed) [#/Area] 3-5 Abnormal [facility] Specific gravity (U) [Rel density] 1.015 1.001 - 1.035 [facility] Urobilinogen (U) [Mass/Vol] 1.0 E.U./dL 0.2 E.U/dL, 1.0 E.U/dL [facility] WBC LM.HPF (Urine sed) [#/Area] 0 - 5 [facility] URINE CULTUREon 08-29-2023 Bacteria identified Cx Nom (U) No Growth Normal [facility] Comment on above: Order Comment: For i ndwelling catheters, specimen collection is acceptable on catheter day 1 and 2 only. Sung top vacutainer. Urine must be to the fill line to process (4mls). If minimum volume, send urine in a yellow top vacutainer tube. Performed By: #### U R ####[facility] (DEFAULT)[address] [place] [address] US RENAL TRANSPLANT SCANon 0 08-29-2023 US RENAL TRANSPLANT SCAN Normal [facility] US for transplanted kidney l imitedon 08-29-2023 RADIOLOGY RADIOLOGY [facility] Radiology Study observation (narrative) [facility] US for transplanted kidney l imitedOrdered By: Romana Myers on 08-29-2023 [facility] Work Phone: XR CHEST PORTABLEon 08-29-20 23 XR CHEST PORTABLE Normal [facility] BLOOD CULTUREon 08-28-2023 Bacteria identified Cx Nom (Unsp spec) NO GROWTH DAY 5 OF 5 Normal [facility] Comment on above: Order Comment: 2 Bot tles (1 Set - consists of 1 Aerobic bottle and 1 Anaerobic bottle) -1st Peripheral DrawFor syringe method draw:If able to obtain adequate sample (20 ml) inoculate anaerobic bottle firstIf inadequate sample obtained (less than 20 ml) inoculate aerobic bottle firstFor vacutainer method draw: Fill aerobic bottle first, then anaerobic Performed By: #### B LDCULT ####[facility] (DEFAULT)[address] [place] [id number] Bacteria identified Cx Nom (Unsp spec) NO GROWTH DAY 5 OF 5 Normal [facility] Comment on above: Order Comment: 2 Bot tles (1 Set - consists of 1 Aerobic bottle and 1 Anaerobic bottle) -1st Peripheral DrawFor syringe method draw:If able to obtain adequate sample (20 ml) inoculate anaerobic bottle firstIf inadequate sample obtained (less than 20 ml) inoculate aerobic bottle firstFor vacutainer method draw: Fill aerobic bottle first, then anaerobic Performed By: #### B LDCULT ####[facility] (DEFAULT)[address] [place] [address] DARYL AURIS SCREEN BY PCRo n 08-28-2023 Daryl auris Screen by PCR Not detected Normal Not Detected [facility] Comment on above: Order Comment: This test was performed using a real-time PCR assay. This test was developed, and its performance characteristics determined by [facility]. It has not been cleared or approved by the FDA. The laboratory is regulated under CLIA as qualified to perform high-complexity testing. This test is used for clinical purposes. It should not be regarded as investigational or for research. Performed By: #### C ANDIDA AURIS SCREEN BY PCR ####[facility] (DEFAULT)[address] [place] [address] CBC AND ELECTRONIC DIFFon Abs Baso Auto < Normal 0.00-0.09 [facility] Comment on above: Performed By: #### L [id number] ####[facility] (DEFAULT)[address] [facility] [place] [address] Basophils/100 WBC (Bld) 0.6 % Normal [facility] Comment on above: Performed By: #### L [id number] ####[facility] (DEFAULT)[address] [place] [address], [place] [address] DIFF STATUS Electronic Differential Normal [facility] Comment on above: Performed By: #### L [id number] ####[facility] (DEFAULT)[address] [place] [address], [place] [address] Eosinophils (Bld) [#/Vol] 0.10 10*3/uL Normal 0.00-0.48 [facility] Comment on above: Performed By: #### L [id number] ####[facility] (DEFAULT)[address] [facility] [place] [address] Eosinophils/100 WBC (Bld) 2.1 % Normal [facility] Comment on above: Performed By: #### L [id number] ####[facility] (DEFAULT)[address] [facility] [place] [address] Hematocrit (Bld) [Volume fraction] 37.9 % Low 39.6-48.8 [facility] Comment on above: Performed By: #### L [id number] ####[facility] (DEFAULT)[address] [place] [address], [place] [address] Hemoglobin (Bld) [Mass/Vol] 12.4 g/dL Low 13.4-16.8 [facility] Comment on above: Performed By: #### L [id number] ####[facility] (DEFAULT)[address] [facility] [place] [address] Immature Grans % 0.6 % Normal [facility] Comment on above: Performed By: #### L [id number] ####[facility] (DEFAULT)[address] [place] [address] Immature Grans Absolute < Normal <=0.07 [facility] Comment on above: Performed By: #### L [id number] ####[facility] (DEFAULT)[address] [place] [address] Lymphocytes (Bld) [#/Vol] 1.76 10*3/uL Normal 0.83-3.57 [facility] Comment on above: Performed By: #### L [id number] ####[facility] (DEFAULT)[address] [facility] [place] [address] Lymphocytes/100 WBC (Bld) 37.1 % Normal [facility] Comment on above: Performed By: #### L [id number] ####[facility] (DEFAULT)[address] [facility] [place] [address] MCV (RBC) [Entitic vol] 85.0 fL Normal 79.0-94.5 [facility] Comment on above: Performed By: #### L [id number] ####[facility] (DEFAULT)[address] [facility] [place] [address] Mean Cell Hgb 27.8 pg Normal 26.1-33.3 [facility] Comment on above: Performed By: #### L [id number] ####[facility] (DEFAULT)[address] [facility] [place] [address] Mean Cell Hgb Conc 32.7 g/dL Normal 31.9-36.5 [facility] Comment on above: Performed By: #### L [id number] ####[facility] (DEFAULT)[address] [facility] [place] [address] Monocytes (Bld) [#/Vol] 0.66 10*3/uL Normal 0.24-0.93 [facility] Comment on above: Performed By: #### L AB980 ####[facility] (DEFAULT)[address] [facility] [place] [address] Monocytes/100 WBC (Bld) 13.9 % Normal [facility] Comment on above: Performed By: #### L [id number] ####[facility] (DEFAULT)[address] [place] [address] Nucleated RBC 0.0 /100 WBC Normal <=0.2 [facility] Comment on above: Performed By: #### L [id number] ####[facility] (DEFAULT)[address] [place] [address] Platelet mean volume (Bld) [Entitic vol] 9.3 fL Normal 8.7-12.3 [facility] Comment on above: Performed By: #### L [id number] ####[facility] (DEFAULT)[address] [place] [address] Platelets (Bld) [#/Vol] 262 10*3/uL Normal 146-337 [facility] Comment on above: Performed By: #### L [id number] ####[facility] (DEFAULT)[address] [facility] [place] [address] RBC (Bld) [#/Vol] 4.46 10*6/uL Normal 4.38-5.83 [facility] Comment on above: Performed By: #### L [id number] ####[facility] (DEFAULT)[address] [place] [address] RBC Distribution 13.4 % Normal 10.9-14.3 [facility] Comment on above: Performed By: #### L [id number] ####[facility] (DEFAULT)[address] [facility] [place] [address] Segs + Bands Auto 45.7 % Normal [facility] Comment on above: Performed By: #### L [id number] ####[facility] (DEFAULT)[address] [place] [address] Segs + Bands,Absolute Auto 2.16 K/uL Normal 1.57-6.19 [facility] Comment on above: Performed By: #### L [id number] ####[facility] (DEFAULT)[address] [place] [address] WBC (Bld) [#/Vol] 4.74 10*3/uL Normal 3.73-10.10 [facility] Comment on above: Performed By: #### L [id number] ####[facility] (DEFAULT)[address] [place] [address] Basophils (Bld) [#/Vol] K/uL 0.00 - 0.09 K/uL [facility] Basophils/100 WBC (Bld) 0.6 % [facility] Differential cell count method Nom (Bld) Electronic Differential [facility] Eosinophils (Bld) [#/Vol] 0.10 10*3/uL 0.00 - 0.48 K/uL [facility] Eosinophils/100 WBC (Bld) 2.1 % [facility] Erythrocyte distribution width (RBC) [Ratio] 13.4 % 10.9 - 14.3 % [facility] Hematocrit (Bld) [Volume fraction] 37.9 % Low 39.6 - 48.8 % [facility] Hemoglobin (Bld) [Mass/Vol] 12.4 g/dL Low 13.4 - 16.8 g/dL [facility] Immature granulocytes (Bld) [#/Vol] K/uL NINF - 0.07 K/uL [facility] Immature granulocytes/100 WBC (Bld) 0.6 % [facility] Interpretation and review of laboratory results Abnormal [facility] Lymphocytes (Bld) [#/Vol] 1.76 10*3/uL 0.83 - 3.57 K/uL [facility] Lymphocytes/100 WBC (Bld) 37.1 % [facility] MCH (RBC) [Entitic mass] 27.8 pg 26.1 - 33.3 pg [facility] MCHC (RBC) [Mass/Vol] 32.7 g/dL 31.9 - 36.5 g/dL [facility] MCV (RBC) [Entitic vol] 85.0 fL 79.0 - 94.5 fL [facility] Monocytes (Bld) [#/Vol] 0.66 10*3/uL 0.24 - 0.93 K/uL [facility] Monocytes/100 WBC (Bld) 13.9 % [facility] Neutrophils (Bld) [#/Vol] 2.16 10*3/uL 1.57 - 6.19 K/uL [facility] Nucleated RBC/100 WBC (Bld) [Ratio] 0.0 % [facility] Platelet mean volume (Bld) [Entitic vol] 9.3 fL 8.7 - 12.3 fL [facility] Platelets (Bld) [#/Vol] 262 10*3/uL 146 - 337 K/uL [facility] RBC (Bld) [#/Vol] 4.46 10*6/uL [facility] Segmented neutrophils/100 WBC (Bld) 45.7 % [facility] WBC (Bld) [#/Vol] 4.74 10*3/uL 3.73 - 10. 10 K/uL [facility] CHEM 6 (LYTES, BUN CREA)on 0 08-28-2023 Anion gap [Moles/Vol] 13 mmol/L Normal 7-17 [facility] Comment on above: Performed By: #### C HM6 ####[facility] (DEFAULT)[address] [place] [address] Chloride [Moles/Vol] 103 mmol/L Normal 98-108 [facility] Comment on above: Performed By: #### C HM6 ####[facility] (DEFAULT)[address] [place] [address] CO2 [Moles/Vol] 22 mmol/L Normal 21-31 [facility] Comment on above: Performed By: #### C HM6 ####[facility] (DEFAULT)[address] [place] [address] Creatinine [Mass/Vol] 1.62 mg/dL High 0.70-1.30 [facility] Comment on above: Performed By: #### C HM6 ####[facility] (DEFAULT)[address] [facility] [place] [address] GFR/1.73 sq M.predicted among non-blacks MDRD (S/P/Bld) [Vol rate/Area] 51 mL/min/{1.73_m2} Low >=60 [facility] Comment on above: Result Comment: Repo rted eGFR is based on the CKD-EPI 2020 equation using creatinine, age, and sex. Performed By: #### C HM6 ####[facility] (DEFAULT)[address] [place] [address], [place] [address] Potassium [Moles/Vol] 4.3 mmol/L Normal 3.5-5.0 [facility] Comment on above: Performed By: #### C HM6 ####[facility] (DEFAULT)[address] [facility] [place] [address] Sodium [Moles/Vol] 134 mmol/L Low 135-145 [facility] Comment on above: Performed By: #### C HM6 ####[facility] (DEFAULT)[address] [facility] [place] [address] Urea nitrogen [Mass/Vol] 22 mg/dL Normal 7-25 [facility] Comment on above: Performed By: #### C HM6 ####[facility] (DEFAULT)[address] [place] [address], [place] [address] Urea nitrogen/Creatinine [Mass ratio] 14 mg/mg Normal [facility] Comment on above: Performed By: #### C HM6 ####[facility] (DEFAULT)[address] [place], [place] [address], [place] [address] Anion gap [Moles/Vol] 13 mmol/L 7 - 17 mmol/L [facility] Chloride [Moles/Vol] 103 mmol/L 98 - 10 8 mmol/L [facility] CO2 [Moles/Vol] 22 mmol/L 21 - 31 mmol/L [facility] Creatinine [Mass/Vol] 1.62 mg/dL High 0.70 - 1.30 mg/dL [facility] eGFR, CKD-EPI, Male 51 Low - PINF [facility] Interpretation and review of laboratory results Abnormal [facility] Potassium [Moles/Vol] 4.3 mmol/L 3.5 - 5.0 mmol/L [facility] Sodium [Moles/Vol] 134 mmol/L Low 135 - 145 mmol/L [facility] Urea nitrogen [Mass/Vol] 22 mg/dL 7 - 25 mg/dL [facility] Urea nitrogen/Creatinine [Mass ratio] 14 mg/[facility] IMMUNOCOMPROMISED RESPIRATOR Y PANELon 08-28-2023 Adenovirus - Pcr Not detected Normal Not Detected [facility] Comment on above: Order Comment: Viral [...] acid assay. Performed By: #### I CRESP ####[facility] (DEFAULT)[address] [place] [address] Bordetella Parapertussis Not detected Normal Not Detected [facility] Comment on above: Order Comment: Viral [...] acid assay. Performed By: #### I CRESP ####[facility] (DEFAULT)[address] [place] [address], [place] [address] Bordetella Pertussis Not detected Normal Not Detected [facility] Comment on above: Order Comment: Viral [...] acid assay. Performed By: #### I CRESP ####[facility] (DEFAULT)[address] [place] [address], [place] [address] Chlamydia Pneumoniae Not detected Normal Not Detected [facility] Comment on above: Order Comment: Viral [...] acid assay. Performed By: #### I CRESP ####[facility] (DEFAULT)[address] [place] [address], [place] [address] Coronavirus 229E Not detected Normal Not Detected [facility] Comment on above: Order Comment: Viral [...] acid assay. Performed By: #### I CRESP ####[facility] (DEFAULT)[address] [place] [address], [place] [address] Coronavirus Hku1 Not detected Normal Not Detected [facility] Comment on above: Order Comment: Viral [...] acid assay. Performed By: #### I CRESP ####[facility] (DEFAULT)[address] [place] [address], [place] [address] Coronavirus Nl63 Not detected Normal Not Detected [facility] Comment on above: Order Comment: Viral [...] acid assay. Performed By: #### I CRESP ####[facility] (DEFAULT)[address] [place] [address], [place] [address] Coronavirus Oc43 Not detected Normal Not Detected [facility] Comment on above: Order Comment: Viral [...] acid assay. Performed By: #### I CRESP ####[facility] (DEFAULT)[address] [place] [address], [place] [address] Influenza A - Pcr Not detected Normal Not Detected [facility] Comment on above: Order Comment: Viral transport [...] acid assay. Performed By: #### I CRESP ####[facility] (DEFAULT)[address] [place] [address], [place] [address] Influenza B - Pcr Not detected Normal Not Detected [facility] Comment on above: Order Comment: Viral transport [...] acid assay. Performed By: #### I CRESP ####[facility] (DEFAULT)[address] [place] [address], [place] [address] Metapneumovirus - Pcr Not detected Normal Not Detected [facility] Comment on above: Order Comment: Viral [...] acid assay. Performed By: #### I CRESP ####[facility] (DEFAULT)[address] [place] [address], [place] [address] Mycoplasma Pneumoniae Not detected Normal Not Detected [facility] Comment on above: Order Comment: Viral [...] acid assay. Performed By: #### I CRESP ####[facility] (DEFAULT)[address] [place] [address] Parainfluenza 1 - Pcr Not detected Normal Not Detected [facility] Comment on above: Order Comment: Viral [...] acid assay. Performed By: #### I CRESP ####[facility] (DEFAULT)[address] [place] [address], [place] [address] Parainfluenza 2 - Pcr Not detected Normal Not Detected [facility] Comment on above: Order Comment: Viral [...] acid assay. Performed By: #### I CRESP ####[facility] (DEFAULT)[address] [place] [address], [place] [address] Parainfluenza 3 - Pcr Not detected Normal Not Detected [facility] Comment on above: Order Comment: Viral [...] acid assay. Performed By: #### I CRESP ####[facility] (DEFAULT)[address] [place] [address], [place] [address] Parainfluenza 4 - Pcr Not detected Normal Not Detected [facility] Comment on above: Order Comment: Viral [...] acid assay. Performed By: #### I CRESP ####[facility] (DEFAULT)[address] [place] [address], [place] [address] Rhinovirus/Enterovir us - PCR Not detected Normal Not Detected [facility] Comment on above: Order Comment: Viral [...] acid assay. Performed By: #### I CRESP ####[facility] (DEFAULT)[address] [place] [address] Rsv - Pcr Not detected Normal Not Detected [facility] Comment on above: Order Comment: Viral [...] acid assay. Performed By: #### I CRESP ####[facility] (DEFAULT)[address] [address] SARS-CoV-2 (COVID-19) RNA ESTELITA+probe Ql (Unsp spec) Not detected Normal NOT DETECTED [facility] Comment on above: Order Comment: Viral [...] acid assay. Performed By: #### I CRESP ####[facility] (DEFAULT)[address] [place] [address] Portable XR Chest Viewson Radiology Study observation (narrative) [facility] Respiratory virus DNA+RNA NA A+probe Nom (Unsp spec)Ordered By: Dayami Harris on 08-28-2023 Adenovirus DNA ESTELITA+probe Nom (Unsp spec) Not detected Not Detected [facility] B. parapertussis DNA ESTELITA+probe Ql (Unsp spec) Not detected Not Detected [facility] B. pertussis DNA ESTELITA+probe Ql (Unsp spec) Not detected Not Detected [facility] C. pneumoniae DNA ESTELITA+probe Ql (Unsp spec) Not detected [facility] FLUAV RNA ESTELITA+probe Ql (Unsp spec) Not detected Not Detected [facility] FLUBV RNA ESTELITA+probe Ql (Unsp spec) Not detected Not Detected [facility] HCoV 229E RNA ESTELITA+non-probe Ql (Nph) Not detected Not Detected [facility] HCoV HKU1 RNA ESTELITA+non-probe Ql (Nph) Not detected Not Detected [facility] HCoV NL63 RNA ESTELITA+non-probe Ql (Nph) Not detected Not Detected [facility] HCoV OC43 RNA ESTELITA+non-probe Ql (Nph) Not detected Not Detected [facility] hMPV A RNA ESTELITA+probe Ql (Unsp spec) Not detected Not Detected [facility] Interpretation and review of laboratory results Normal [facility] M. pneumoniae DNA ESTELITA+probe Ql (Unsp spec) Not detected Not Detected [facility] Parainfluenza virus 1 RNA ESTELITA+probe Ql (Unsp spec) Not detected Not Detected [facility] Parainfluenza virus 2 RNA ESTELITA+probe Ql (Unsp spec) Not detected Not Detected [facility] Parainfluenza virus 3 RNA ESTELITA+probe Ql (Unsp spec) Not detected Not Detected [facility] Parainfluenza virus 4 RNA ESTELITA+probe Ql (Unsp spec) Not detected Not Detected [facility] Rhinovirus+Enterovir us RNA ESTELITA+probe Ql (Unsp spec) Not detected Not Detected [facility] RSV RNA ESTELITA+probe Ql (Unsp spec) Not detected Not Detected [facility] SARS-CoV-2 (COVID-19) RNA ESTELITA+probe Ql (Unsp spec) Not detected NOT DETECTED [facility] ALBUMIN[facility] 04-28-2023 Albumin [Mass/Vol] 4.0 g/dL Normal 3.4-5.0 [facility] Comment on above: Performed By: #### C MP #### [facility] [address] [place] [address] Dr. Dwight Waters ALKALINE PHOSPHAon ALP [Catalytic activity/Vol] 106 U/L Normal 46-116 [facility] Comment on above: Performed By: #### F [id number] #### [facility] [address] [place] [address] Dr. Dwight Waters BILIRUBIN CONJUGATED (DIRECT )on 04-28-2023 BILI, CONJUGATED 0.3 mg/dL Critically high 0.0-0.2 [facility] Comment on above: Performed By: #### C MP #### [facility] [address] [place] [address] Dr. Dwight Waters BILIRUBIN TOTALon 04-28-2023 Bilirubin [Mass/Vol] 1.4 mg/dL Critically high 0.2-1.0 [facility] Comment on above: Performed By: #### C MP #### [facility] [address] [place] [address] Dr. Dwight Waters BUNon 04-28-2023 Urea nitrogen [Mass/Vol] 12.0 mg/dL Normal 7.0-18.0 [facility] Comment on above: Performed By: #### U RTPCR #### [facility] [address] [place] [address] Dr. Dwight Waters CALCIUMon 04-28-2023 Calcium [Mass/Vol] 9.3 mg/dL Normal 8.5-10.1 [facility] Comment on above: Performed By: #### U RTPCR #### [facility] [address] [place] [address] Dr. Dwight Waters CBC AUTO DIFFon 04-28-2023 BASO # 0.1 103/ul Normal 0.0-0.1 [facility] Comment on above: Performed By: #### C BC #### [facility] [address] [place] [address] Dr. Dwight Waters Basophils/100 WBC (Bld) 0.9 % Normal 0.2-2.0 [facility] Comment on above: Performed By: #### C BC #### [facility] [address] [place] [address] Dr. Dwight Waters EO # 0.2 103/ul Normal 0.0-0.7 [facility] Comment on above: Performed By: #### C BC #### [facility] [address] [place] [address] Dr. Dwight Waters Eosinophils/100 WBC (Bld) 3.8 % Normal 0.9-7.0 [facility] Comment on above: Performed By: #### C BC #### [facility] [address] [place] [address] Dr. Dwight Waters Erythrocyte distribution width (RBC) [Ratio] 12.5 % Normal 11.0-15.0 [facility] Comment on above: Performed By: #### C BC #### [facility] [address] [place] [address] Dr. Dwight Waters Hematocrit (Bld) [Volume fraction] 49.8 % Normal 42.0-54.0 [facility] Comment on above: Performed By: #### C BC #### [facility] [address] [place] [address] Dr. Dwight Waters Hemoglobin (Bld) [Mass/Vol] 16.4 g/dL Normal 14.0-18.0 [facility] Comment on above: Performed By: #### C BC #### [facility] [address] [place] [address] Dr. Dwight Waters IG # 0.01 10e3/ul Normal 0.00-0.03 [facility] Comment on above: Performed By: #### C BC #### [facility] [address] [place] [address] Dr. Dwight Waters IG % 0.2 % Normal 0.0-0.5 [facility] Comment on above: Performed By: #### C BC #### [facility] [address] [place] [address] Dr. Dwight Waters LYMPH # 2.1 103/ul Normal 1.2-3.8 [facility] Comment on above: Performed By: #### C BC #### [facility] [address] [place] [address] Dr. Dwight Waters Lymphocytes/100 WBC (Bld) 39.1 % Normal 20.5-60.0 [facility] Comment on above: Performed By: #### C BC #### [facility] [address] [place] [address] Dr. Dwight Waters MANUAL DIFF REQ NO Normal [facility] Comment on above: Performed By: #### C BC #### [facility] [address] [place] [address] Dr. Dwight Waters MCH (RBC) [Entitic mass] 28.6 pg Normal 25.9-34.0 [facility] Comment on above: Performed By: #### C BC #### [facility] [address] [place] [address] Dr. Dwight Waters MCHC (RBC) [Mass/Vol] 32.9 g/dL Normal 29.9-35.2 [facility] Comment on above: Performed By: #### C BC #### [facility] [address] [place] [address] Dr. Dwight Waters MCV (RBC) [Entitic vol] 86.9 fL Normal 80.0-94.0 [facility] Comment on above: Performed By: #### C BC #### [facility] [address] [place] [address] Dr. Dwight Waters MONO # 0.6 103/ul Normal 0.3-0.8 [facility] Comment on above: Performed By: #### C BC #### [facility] [address] [place] [address] Dr. Dwight Waters Monocytes/100 WBC (Bld) 10.6 % Normal 1.7-12.0 [facility] Comment on above: Performed By: #### C BC #### [facility] [address] [place] [address] Dr. Dwight Waters NEUT # 2.5 103/ul Normal 1.4-6.5 [facility] Comment on above: Performed By: #### C BC #### [facility] [address] [place] [address] Dr. Dwight Waters Neutrophils/100 WBC (Bld) 45.4 % Normal 43.0-75.0 [facility] Comment on above: Performed By: #### C BC #### [facility] [address] [place] [address] Dr. Dwight Waters Platelet mean volume (Bld) [Entitic vol] 9.3 fL Critically low 9.5-13.5 [facility] Comment on above: Performed By: #### C BC #### [facility] [address] [place] [address] Dr. Dwight Waters PLT 248 103/ul Normal 150-450 [facility] Comment on above: Performed By: #### C BC #### [facility] [address] [place] [address] Dr. Dwight Waters RBC 5.73 106/ul Normal 4.70-6.10 [facility] Comment on above: Performed By: #### C BC #### [facility] [address] [place] [address] Dr. Dwight Waters WBC 5.5 103/ul Normal 4.0-11.0 [facility] Comment on above: Performed By: #### C BC #### [facility] [address] [place] [address] Dr. Dwight Waters CHLORIDEon 04-28-2023 Chloride [Moles/Vol] 107 mmol/L Normal 98-107 [facility] Comment on above: Performed By: #### U RTPCR #### [facility] [address] [place] [address] Dr. Dwight Waters CO2on 04-28-2023 CO2 [Moles/Vol] 28.9 mmol/L Normal 21.0-32.0 [facility] Comment on above: Performed By: #### U RTPCR #### [facility] [address] [place] [address] Dr. Dwight Waters CREATININEon 04-28-2023 Creatinine [Mass/Vol] 1.17 mg/dL Normal 0.70-1.30 [facility] Comment on above: Performed By: #### U RTPCR #### [facility] [address] [address] [address] Dwight Waters EGFR-AF SAUDI ARABIAN >60 Normal >=60 [facility] [facility] Comment on above: Performed By: #### U RTPCR #### [facility] [address] [place] [address] Dr. Dwight Waters EGFR-NON AF SAUDI ARABIAN >60 Normal >=60 [facility] Comment on above: Performed By: #### U RTPCR #### [facility] [address] [address] [address] Dwight Waters GGTon 04-28-2023 Gamma glutamyl transferase [Catalytic activity/Vol] 27 U/L Normal 15-85 [facility] Comment on above: Performed By: #### U RTPCR #### [facility] [address] [place] [address] Dr. Dwight Waters GLUCOSE BLOODon 04-28-2023 Glucose [Mass/Vol] 110 mg/dL Critically high 74-106 [facility] Comment on above: Performed By: #### U RTPCR #### [facility] [address] [place] [address] Dr. Dwight Waters MAGNESIUMon 04-28-2023 Magnesium [Mass/Vol] 1.7 mg/dL Critically low 1.8-2.4 [facility] Comment on above: Performed By: #### U RTPCR #### [facility] [address] [place] [address] Dr. Dwight Waters NAon 04-28-2023 Sodium [Moles/Vol] 144 mmol/L Normal 136-145 [facility] Comment on above: Performed By: #### U RTPCR #### [facility] [address] [place] [address] Dr. Dwight Waters PHOSPHORUSon 04-28-2023 Phosphate [Mass/Vol] 3.2 mg/dL Normal 2.6-4.7 [facility] Comment on above: Performed By: #### U RTPCR #### [facility] [address] [place] [address] Dr. Dwight Waters POTASSIUMon 04-28-2023 Potassium [Moles/Vol] 4.0 mmol/L Normal 3.5-5.1 [facility] Comment on above: Performed By: #### U RTPCR #### [facility] [address] [place] [address] Dr. Dwight Waters SGOTon 04-28-2023 AST [Catalytic activity/Vol] 25 U/L Normal 15-37 [facility] Comment on above: Performed By: #### C MP #### [facility] [address] [place] [address] Dr. Dwight Waters SGPTon 04-28-2023 ALT [Catalytic activity/Vol] 40 U/L Normal 16-63 [facility] Comment on above: Performed By: #### C MP #### [facility] [address] [place] [address] Dr. Dwight Waters URINE T PROTEIN CREAT RATIOo n 04-28-2023 Protein (U) [Mass/Vol] 10.1 mg/dL Normal <=12.0 [facility] Comment on above: Performed By: #### U RTPCR #### [facility] [address] [place] [address] Dr. Dwight Waters UR PROT CREAT RAT 0.14 Normal [facility] Comment on above: Performed By: #### U RTPCR #### [facility] [address] [place] [address] Dr. Dwight Waters URINE CREAT 74.40 mg/dL Normal 20.00-300.00 [facility] Comment on above: Performed By: #### U RTPCR #### [facility] [address] [place] [address] Dr. Dwight Waters Office Visiton 04-13-2023 Follow-up visit [id number] George Styles 1970 M Date Provider Department Center 04/13/2023 MIGUEL PARADA [facility] Family History Problem Relation Age of Onset Coronary artery disease Mother Coronary artery disease Father Family Status - Relation Status Age at Mother Father Level of Service:22527 UT OFFICE/OUTPATIENT ESTABLISHED LOW MDM 20-29 MIN Reason for Visit and Comments: Hypertension [196508] Hyperlipidemia [182] Normal [facility] BK VIRUS PCR QUANTon 023 BKV DNA QUANT PCR PLASMA Negative Normal Negative [facility] Comment on above: Result Comment: No B K DNA detected. . The linear range of the assay is 22 - 100,000,000 IU/mL. Performed By: #### B KVIRUS #### [facility] [address] [place] [address] Dr. Dwight Waters Log10 BKV DNA Plasma Normal [facility] Comment on above: Performed By: #### B KVIRUS #### [facility] [address] [place] [address] Dr. Dwight Waters FK506 (TACROLIMUS) WHOLE BLO ODon 03-04-2023 Tacrolimus (FK506), Blood 5.9 ng/mL Normal 2.0-20.0 [facility] Comment on above: Result Comment: Trou gh (immediately following transplant) 15.0 . Trough (steady state, 2 weeks or more after transplant): 3.0 - 8.0 . Performed by LC-MS/MS technology. Performed By: #### C MP #### [facility] [address] [place] [address] Dr. Dwight Waters ALBUMINon 03-02-2023 Albumin [Mass/Vol] 3.9 g/dL Normal 3.4-5.0 [facility] Comment on above: Performed By: #### U RTPCR #### [facility] [address] [place] [address] Dr. Dwight Waters ALKALINE PHOSPHAon ALP [Catalytic activity/Vol] 105 U/L Normal 46-116 [facility] Comment on above: Performed By: #### U RTPCR #### [facility] [address] [place] [address] Dr. Dwight Waters BILIRUBIN CONJUGATED (DIRECT )on 03-02-2023 BILI, CONJUGATED 0.2 mg/dL Normal 0.0-0.2 [facility] Comment on above: Performed By: #### U RTPCR #### [facility] [address] [place] [address] Dr. Dwight Waters BILIRUBIN TOTALon 03-02-2023 Bilirubin [Mass/Vol] 0.9 mg/dL Normal 0.2-1.0 [facility] Comment on above: Performed By: #### U RTPCR #### [facility] [address] [place] [address] Dr. Dwight Waters CBC AUTO DIFFon 03-02-2023 BASO # 0.1 103/ul Normal 0.0-0.1 [facility] Comment on above: Performed By: #### C BC #### [facility] [address] [place] [address] Dr. Dwight Waters Basophils/100 WBC (Bld) 0.9 % Normal 0.2-2.0 [facility] Comment on above: Performed By: #### C BC #### [facility] [address] [place] [address] Dr. Dwight Waters EO # 0.2 103/ul Normal 0.0-0.7 [facility] Comment on above: Performed By: #### C BC #### [facility] [address] [place] [address] Dr. Dwight Waters Eosinophils/100 WBC (Bld) 3.5 % Normal 0.9-7.0 [facility] Comment on above: Performed By: #### C BC #### [facility] [address] [place] [address] Dr. Dwight Waters Erythrocyte distribution width (RBC) [Ratio] 12.7 % Normal 11.0-15.0 [facility] Comment on above: Performed By: #### C BC #### [facility] [address] [place] [address] Dr. Dwight Waters Hematocrit (Bld) [Volume fraction] 48.2 % Normal 42.0-54.0 [facility] Comment on above: Performed By: #### C BC #### [facility] [address] [place] [address] Dr. Dwight Waters Hemoglobin (Bld) [Mass/Vol] 15.9 g/dL Normal 14.0-18.0 [facility] Comment on above: Performed By: #### C BC #### [facility] [address] [place] [address] Dr. Dwight Waters IG # 0.01 10e3/ul Normal 0.00-0.03 [facility] Comment on above: Performed By: #### C BC #### [facility] [address] [place] [address] Dr. Dwight Waters IG % 0.2 % Normal 0.0-0.5 [facility] Comment on above: Performed By: #### C BC #### [facility] [address] [place] [address] Dr. Dwight Waters LYMPH # 2.1 103/ul Normal 1.2-3.8 [facility] Comment on above: Performed By: #### C BC #### [facility] [address] [place] [address] Dr. Dwight Waters Lymphocytes/100 WBC (Bld) 37.4 % Normal 20.5-60.0 [facility] Comment on above: Performed By: #### C BC #### [facility] [address] [place] [address] Dr. Dwight Waters MANUAL DIFF REQ NO Normal [facility] Comment on above: Performed By: #### C BC #### [facility] [address] [place] [address] Dr. Dwight Waters MCH (RBC) [Entitic mass] 28.3 pg Normal 25.9-34.0 [facility] Comment on above: Performed By: #### C BC #### [facility] [address] [place] [address] Dr. Dwight Waters MCHC (RBC) [Mass/Vol] 33.0 g/dL Normal 29.9-35.2 [facility] Comment on above: Performed By: #### C BC #### [facility] [address] [place] [address] Dr. Dwight Waters MCV (RBC) [Entitic vol] 85.8 fL Normal 80.0-94.0 [facility] Comment on above: Performed By: #### C BC #### [facility] [address] [place] [address] Dr. Dwight Waters MONO # 0.6 103/ul Normal 0.3-0.8 [facility] Comment on above: Performed By: #### C BC #### [facility] [address] [place] [address] Dr. Dwight Waters Monocytes/100 WBC (Bld) 10.2 % Normal 1.7-12.0 [facility] Comment on above: Performed By: #### C BC #### [facility] [address] [place] [address] Dr. Dwight Waters NEUT # 2.7 103/ul Normal 1.4-6.5 [facility] Comment on above: Performed By: #### C BC #### [facility] [address] [place] [address] Dr. Dwight Waters Neutrophils/100 WBC (Bld) 47.8 % Normal 43.0-75.0 [facility] Comment on above: Performed By: #### C BC #### [facility] [address] [place] [address] Dr. Dwight Waters Platelet mean volume (Bld) [Entitic vol] 9.3 fL Critically low 9.5-13.5 [facility] Comment on above: Performed By: #### C BC #### [facility] [address] [place] [address] Dr. Dwight Waters PLT 241 103/ul Normal 150-450 [facility] Comment on above: Performed By: #### C BC #### [facility] [address] [place] [address] Dr. Dwight Waters RBC 5.62 106/ul Normal 4.70-6.10 [facility] Comment on above: Performed By: #### C BC #### [facility] [address] [place] [address] Dr. Dwight Waters WBC 5.7 103/ul Normal 4.0-11.0 [facility] Comment on above: Performed By: #### C BC #### [facility] [address] [place] [address] Dr. Dwight Waters GGTon 03-02-2023 Gamma glutamyl transferase [Catalytic activity/Vol] 25 U/L Normal 15-85 [facility] Comment on above: Performed By: #### U RTPCR #### [facility] [address] [place] [address] Dr. Dwight Waters MAGNESIUMon 03-02-2023 Magnesium [Mass/Vol] 1.6 mg/dL Critically low 1.8-2.4 [facility] Comment on above: Performed By: #### U RTPCR #### [facility] [address] [place] [address] Dr. Dwight Waters PHOSPHORUSon 03-02-2023 Phosphate [Mass/Vol] 3.6 mg/dL Normal 2.6-4.7 [facility] Comment on above: Performed By: #### U RTPCR #### [facility] [address] [place] [address] Dr. Dwight Waters PROF CHEM 8 (BAS METB)on Anion gap [Moles/Vol] 9.4 mmol/L Normal [facility] Comment on above: Performed By: #### U RTPCR #### [facility] [address] [place] [address] Dr. Dwight Waters Calcium [Mass/Vol] 9.3 mg/dL Normal 8.5-10.1 [facility] Comment on above: Performed By: #### U RTPCR #### [facility] [address] [place] [address] Dr. Dwight Waters Chloride [Moles/Vol] 108 mmol/L Critically high 98-107 [facility] Comment on above: Performed By: #### U RTPCR #### [facility] [address] [place] [address] Dr. Dwight Waters CO2 [Moles/Vol] 27.2 mmol/L Normal 21.0-32.0 [facility] Comment on above: Performed By: #### U RTPCR #### [facility] [address] [place] [address] Dr. Dwight Waters Creatinine [Mass/Vol] 1.12 mg/dL Normal 0.70-1.30 [facility] Comment on above: Performed By: #### U RTPCR #### [facility] [address] [place] [address] Dr. Dwight Waters EGFR-AF SAUDI ARABIAN >60 Normal >=60 [facility] Comment on above: Performed By: #### U RTPCR #### [facility] [address] [place] [address] Dr. Dwight Waters EGFR-NON AF SAUDI ARABIAN >60 Normal >=60 [facility] Comment on above: Performed By: #### U RTPCR #### [facility] [address] [place] [address] Dr. Dwight Waters Glucose [Mass/Vol] 113 mg/dL Critically high 74-106 [facility] Comment on above: Performed By: #### U RTPCR #### [facility] [address] [place] [address] Dr. Dwight Waters Potassium [Moles/Vol] 3.6 mmol/L Normal 3.5-5.1 [facility] Comment on above: Performed By: #### U RTPCR #### [facility] [address] [place] [address] Dr. Dwight Waters Sodium [Moles/Vol] 141 mmol/L Normal 136-145 [facility] Comment on above: Performed By: #### U RTPCR #### [facility] [address] [place] [address] Dr. Dwight Waters Urea nitrogen [Mass/Vol] 14.0 mg/dL Normal 7.0-18.0 [facility] Comment on above: Performed By: #### U RTPCR #### [facility] [address] [place] [address] Dr. Dwight Waters Urea nitrogen/Creatinine [Mass ratio] 12.5 mg/mg Normal [facility] Comment on above: Performed By: #### U RTPCR #### [facility] [address] [place] [address] Dr. Dwight Waters SGOTon 03-02-2023 AST [Catalytic activity/Vol] 20 U/L Normal 15-37 [facility] Comment on above: Performed By: #### U RTPCR #### [facility] [address] [place] [address] Dr. Dwight Waters SGPTon 03-02-2023 ALT [Catalytic activity/Vol] 30 U/L Normal 16-63 [facility] Comment on above: Performed By: #### U RTPCR #### [facility] [address] [place] [address] Dr. Dwight Waters URINE T PROTEIN CREAT RATIOo n 03-02-2023 Protein (U) [Mass/Vol] 10.3 mg/dL Normal <=12.0 [facility] Comment on above: Performed By: #### U RTPCR #### [facility] [address] [place] [address] Dr. Dwight Waters UR PROT CREAT RAT 0.15 Normal [facility] Comment on above: Performed By: #### U RTPCR #### [facility] [address] [place] [address] Dr. Dwight Waters URINE CREAT 68.96 mg/dL Normal 20.00-300.00 [facility] Comment on above: Performed By: #### U RTPCR #### [facility] [address] [place] [address] Dr. Dwight Waters BK VIRUS PCR QUANTon 023 BKV DNA QUANT PCR PLASMA Negative Normal Negative [facility] Comment on above: Result Comment: No B K DNA detected. . The linear range of the assay is 22 - 100,000,000 IU/mL. Performed By: #### C MP #### [facility] [address] [place] [address] Dr. Dwight Waters Log10 BKV DNA Plasma Normal [facility] Comment on above: Performed By: #### C MP #### [facility] [address] [place] [address] Dr. Dwight Waters FK506 (TACROLIMUS) WHOLE BLO ODon 12-31-2022 Tacrolimus (FK506), Blood 5.6 ng/mL Normal 2.0-20.0 [facility] Comment on above: Result Comment: Trou gh (immediately following transplant) 15.0 . Trough (steady state, 2 weeks or more after transplant): 3.0 - 8.0 . Performed by LC-MS/MS technology. Performed By: #### C MP #### [facility] [address] [place] [address] Dr. Dwight Waters ALKALINE PHOSPHAon ALP [Catalytic activity/Vol] 96 U/L Normal 46-116 [facility] Comment on above: Performed By: #### C BC #### [facility] [address] [place] [address] Dr. Dwight Waters BILIRUBIN CONJUGATED (DIRECT )on 12-29-2022 BILI, CONJUGATED 0.3 mg/dL Critically high 0.0-0.2 [facility] Comment on above: Performed By: #### C BC #### [facility] [address] [place] [address] Dr. Dwight Waters BILIRUBIN TOTALon 12-29-2022 Bilirubin [Mass/Vol] 1.1 mg/dL Critically high 0.2-1.0 [facility] Comment on above: Performed By: #### C BC #### [facility] [address] [place] [address] Dr. Dwight Waters CBC AUTO DIFFon 12-29-2022 BASO # 0.1 103/ul Normal 0.0-0.1 [facility] Comment on above: Performed By: #### C MP #### [facility] [address] [place] [address] Dr. Dwight Waters Basophils/100 WBC (Bld) 0.8 % Normal 0.2-2.0 [facility] Comment on above: Performed By: #### C MP #### [facility] [address] [place] [address] Dr. Dwight Waters EO # 0.2 103/ul Normal 0.0-0.7 [facility] Comment on above: Performed By: #### C MP #### [facility] [address] [place] [address] Dr. Dwight Waters Eosinophils/100 WBC (Bld) 3.0 % Normal 0.9-7.0 [facility] Comment on above: Performed By: #### C MP #### [facility] [address] [place] [address] Dr. Dwight Waters Erythrocyte distribution width (RBC) [Ratio] 12.9 % Normal 11.0-15.0 [facility] Comment on above: Performed By: #### C MP #### [facility] [address] [place] [address] Dr. Dwight Waters Hematocrit (Bld) [Volume fraction] 46.9 % Normal 42.0-54.0 [facility] Comment on above: Performed By: #### C MP #### [facility] [address] [place] [address] Dr. Dwight Waters Hemoglobin (Bld) [Mass/Vol] 16.1 g/dL Normal 14.0-18.0 [facility] Comment on above: Performed By: #### C MP #### [facility] [address] [place] [address] Dr. Dwight Waters IG # 0.01 10e3/ul Normal 0.00-0.03 [facility] Comment on above: Performed By: #### C MP #### [facility] [address] [place] [address] Dr. Dwight Waters IG % 0.2 % Normal 0.0-0.5 [facility] Comment on above: Performed By: #### C MP #### [facility] [address] [place] [address] Dr. Dwight Waters LYMPH # 1.8 103/ul Normal 1.2-3.8 [facility] Comment on above: Performed By: #### C MP #### [facility] [address] [place] [address] Dr. Dwight Waters Lymphocytes/100 WBC (Bld) 27.9 % Normal 20.5-60.0 [facility] Comment on above: Performed By: #### C MP #### [facility] [address] [place] [address] Dr. Dwight Waters MANUAL DIFF REQ NO Normal [facility] Comment on above: Performed By: #### C MP #### [facility] [address] [place] [address] Dr. Dwight Waters MCH (RBC) [Entitic mass] 28.5 pg Normal 25.9-34.0 [facility] Comment on above: Performed By: #### C MP #### [facility] [address] [address] [address] Dwight Waters MCHC (RBC) [Mass/Vol] 34.3 g/dL Normal 29.9-35.2 [facility] Comment on above: Performed By: #### C MP #### [facility] [address] [address] [address] Dwight Waters MCV (RBC) [Entitic vol] 83.2 fL Normal 80.0-94.0 [facility] Comment on above: Performed By: #### C MP #### [facility] [address] [place] [address] Dr. Dwight Waters MONO # 0.5 103/ul Normal 0.3-0.8 [facility] Comment on above: Performed By: #### C MP #### [facility] [address] [place] [address] Dr. Dwight Waters Monocytes/100 WBC (Bld) 8.1 % Normal 1.7-12.0 [facility] Comment on above: Performed By: #### C MP #### [facility] [address] [place] [address] Dr. Dwight Waters NEUT # 3.8 103/ul Normal 1.4-6.5 [facility] Comment on above: Performed By: #### C MP #### [facility] [address] [place] [address] Dr. Dwight Waters Neutrophils/100 WBC (Bld) 60.0 % Normal 43.0-75.0 [facility] Comment on above: Performed By: #### C MP #### [facility] [address] [address] [address] Dwight Waters Platelet mean volume (Bld) [Entitic vol] 9.2 fL Critically low 9.5-13.5 [facility] Comment on above: Performed By: #### C MP #### [facility] [address] [place] [address] Dr. Dwight Waters PLT 225 103/ul Normal 150-450 [facility] Comment on above: Performed By: #### C MP #### [facility] [address] [place] [address] Dr. Dwight Waters RBC 5.64 106/ul Normal 4.70-6.10 [facility] Comment on above: Performed By: #### C MP #### [facility] [address] [place] [address] Dr. Dwight Waters WBC 6.3 103/ul Normal 4.0-11.0 [facility] Comment on above: Performed By: #### C MP #### [facility] [address] [place] [address] Dr. Dwight Waters GGTon 12-29-2022 Gamma glutamyl transferase [Catalytic activity/Vol] 24 U/L Normal 15-85 [facility] Comment on above: Performed By: #### C MP #### [facility] [address] [place] [address] Dr. Dwight Waters LIPID PROFILEon 12-29-2022 CHOL-HDL RATIO NORM SEE BELOW Normal [facility] Comment on above: Result Comment: 3.3 - 4.4 LOW RISK 4.4 - 7.1 AVERAGE RISK 7.1 - 11.0 MODERATE RISK >11.0 HIGH RISK Performed By: #### U RTPCR #### [facility] [address] [place] [address] Dr. Dwight Waters Cholesterol [Mass/Vol] 87 mg/dL Normal <=200 [facility] Comment on above: Performed By: #### U RTPCR #### [facility] [address] [place] [address] Dr. Dwight Waters Cholesterol in HDL [Mass/Vol] 44 mg/dL Normal 40-60 [facility] Comment on above: Performed By: #### U RTPCR #### [facility] [address] [place] [address] Dr. Dwight Waters Cholesterol in LDL [Mass/Vol] 33.0 mg/dL Normal [facility] Comment on above: Performed By: #### U RTPCR #### [facility] [address] [place] [address] Dr. Dwight Waters Cholesterol.total/Ch olesterol in HDL [Mass ratio] 2.0 {ratio} Normal [facility] Comment on above: Performed By: #### U RTPCR #### [facility] [address] [address] [address] Dwight Waters HDL NORMAL > or = 60 mg/dl - LO W CARDIOVASCULAR RISK <40 mg/dl - HIGH CARDIOVASCULAR RISK Normal [facility] Comment on above: Performed By: #### U RTPCR #### [facility] [address] [address] [address] Dwight Waters LDL CALC NORMAL SEE BELOW Normal [facility] Comment on above: Result Comment: <100 mg/dl OPTIMAL 100 - 129 mg/dl NEAR OR ABOVE OPTIMAL 130 - 159 mg/dl BORDERLINE HIGH 160 - 189 mg/dl HIGH >190 mg/dl VERY HIGH Performed By: #### U RTPCR #### [facility] [address] [address] [address] Dwight Waters Triglyceride [Mass/Vol] 50 mg/dL Normal <=150 [facility] Comment on above: Performed By: #### U RTPCR #### [facility] [address] [address] [address] Dwight Waters VLDL CALC 10.0 mg/dL Normal [facility] Comment on above: Performed By: #### U RTPCR #### [facility] [address] [place] [address] Dr. Dwight Waters MAGNESIUMon 12-29-2022 Magnesium [Mass/Vol] 1.6 mg/dL Critically low 1.8-2.4 [facility] Comment on above: Performed By: #### C BC #### [facility] [address] [address] [address] Dwight Waters RENAL FUNCTION PANELon 12-29 Albumin [Mass/Vol] 3.9 g/dL Normal 3.4-5.0 [facility] Comment on above: Performed By: #### C BC #### [facility] [address] [place] [address] Dr. Dwight Waters Calcium [Mass/Vol] 9.2 mg/dL Normal 8.5-10.1 [facility] Comment on above: Performed By: #### C BC #### [facility] [address] [address] [address] Dwight Waters Chloride [Moles/Vol] 109 mmol/L Critically high 98-107 [facility] Comment on above: Performed By: #### C BC #### [facility] [address] [address] [address] Dwight Waters CO2 [Moles/Vol] 27.0 mmol/L Normal 21.0-32.0 [facility] [facility] Comment on above: Performed By: #### C BC #### [facility] [address] [address] [address] Dwight Waters Creatinine [Mass/Vol] 1.02 mg/dL Normal 0.70-1.30 [facility] Comment on above: Performed By: #### C BC #### [facility] [address] [place] [address] Dr. Dwight Waters EGFR-AF SAUDI ARABIAN >60 Normal >=60 [facility] Comment on above: Performed By: #### C BC #### [facility] [address] [place] [address] Dr. Dwight Waters EGFR-NON AF SAUDI ARABIAN >60 Normal >=60 [facility] Comment on above: Performed By: #### C BC #### [facility] [address] [place] [address] Dr. Dwight Waters Glucose [Mass/Vol] 117 mg/dL Critically high 74-106 [facility] Comment on above: Performed By: #### C BC #### [facility] [address] [place] [address] Dr. Dwight Waters Phosphate [Mass/Vol] 3.2 mg/dL Normal 2.6-4.7 [facility] Comment on above: Performed By: #### C BC #### [facility] [address] [place] [address] Dr. Dwight Waters Potassium [Moles/Vol] 4.1 mmol/L Normal 3.5-5.1 [facility] Comment on above: Performed By: #### C BC #### [facility] [address] [place] [address] Dr. Dwight Waters Sodium [Moles/Vol] 144 mmol/L Normal 136-145 [facility] Comment on above: Performed By: #### C BC #### [facility] [address] [place] [address] Dr. Dwight Waters Urea nitrogen [Mass/Vol] 13.0 mg/dL Normal 7.0-18.0 [facility] Comment on above: Performed By: #### C BC #### [facility] [address] [place] [address] Dr. Dwight Waters SGOTon 12-29-2022 AST [Catalytic activity/Vol] 21 U/L Normal 15-37 [facility] Comment on above: Performed By: #### C BC #### [facility] [address] [place] [address] Dr. Dwight Waters SGPTon 12-29-2022 ALT [Catalytic activity/Vol] 32 U/L Normal 16-63 [facility] Comment on above: Performed By: #### C BC #### [facility] [address] [place] [address] Dr. Dwight Waters URINE T PROTEIN CREAT RATIOo n 12-29-2022 Protein (U) [Mass/Vol] 14.3 mg/dL Critically high <=12.0 [facility] Comment on above: Performed By: #### U RTPCR #### [facility] [address] [place] [address] Dr. Dwight Waters UR PROT CREAT RAT 0.17 Normal [facility] Comment on above: Performed By: #### U RTPCR #### [facility] [address] [place] [address] Dr. Dwight Waters URINE CREAT 86.58 mg/dL Normal 20.00-300.00 [facility] Comment on above: Performed By: #### U RTPCR #### [facility] [address] [place] [address] Dr. Dwight Waters FK506 (TACROLIMUS) WHOLE BLO ODon 11-06-2022 Tacrolimus (FK506), Blood 4.9 ng/mL Normal 2.0-20.0 [facility] Comment on above: Result Comment: Trou gh (immediately following transplant) 15.0 . Trough (steady state, 2 weeks or more after transplant): 3.0 - 8.0 . Performed by LC-MS/MS technology. Performed By: #### U RTPCR #### [facility] [address] [place] [address] Dr. Dwight Waters ALKALINE PHOSPHAon ALP [Catalytic activity/Vol] 86 U/L Normal 46-116 [facility] Comment on above: Performed By: #### U RTPCR #### [facility] [address] [place] [address] Dr. Dwight Waters BILIRUBIN CONJUGATED (DIRECT )on 11-04-2022 BILI, CONJUGATED 0.2 mg/dL Normal 0.0-0.2 [facility] Comment on above: Performed By: #### U RTPCR #### [facility] [address] [place] [address] Dr. Dwight Waters BILIRUBIN TOTALon 11-04-2022 Bilirubin [Mass/Vol] 0.8 mg/dL Normal 0.2-1.0 [facility] Comment on above: Performed By: #### U RTPCR #### [facility] [address] [place] [address] Dr. Dwight Waters CBC AUTO DIFFon 11-04-2022 BASO # 0.1 103/ul Normal 0.0-0.1 [facility] Comment on above: Performed By: #### U RTPCR #### [facility] [address] [place] [address] Dr. Dwight Waters Basophils/100 WBC (Bld) 0.9 % Normal 0.2-2.0 [facility] Comment on above: Performed By: #### U RTPCR #### [facility] [address] [place] [address] Dr. Dwight Waters EO # 0.2 103/ul Normal 0.0-0.7 [facility] Comment on above: Performed By: #### U RTPCR #### [facility] [address] [place] [address] Dr. Dwight Waters Eosinophils/100 WBC (Bld) 3.7 % Normal 0.9-7.0 [facility] Comment on above: Performed By: #### U RTPCR #### [facility] [address] [place] [address] Dr. Dwight Waters Erythrocyte distribution width (RBC) [Ratio] 12.9 % Normal 11.0-15.0 [facility] Comment on above: Performed By: #### U RTPCR #### [facility] [address] [place] [address] Dr. Dwight Waters Hematocrit (Bld) [Volume fraction] 48.3 % Normal 42.0-54.0 [facility] Comment on above: Performed By: #### U RTPCR #### [facility] [address] [place] [address] Dr. Dwight Waters Hemoglobin (Bld) [Mass/Vol] 15.6 g/dL Normal 14.0-18.0 [facility] Comment on above: Performed By: #### U RTPCR #### [facility] [address] [place] [address] Dr. Dwight Waters IG # 0.01 10e3/ul Normal 0.00-0.03 [facility] Comment on above: Performed By: #### U RTPCR #### [facility] [address] [place] [address] Dr. Dwight Waters IG % 0.2 % Normal 0.0-0.5 [facility] Comment on above: Performed By: #### U RTPCR #### [facility] [address] [place] [address] Dr. Dwight Waters LYMPH # 1.9 103/ul Normal 1.2-3.8 [facility] Comment on above: Performed By: #### U RTPCR #### [facility] [address] [place] [address] Dr. Dwight Waters Lymphocytes/100 WBC (Bld) 33.0 % Normal 20.5-60.0 [facility] Comment on above: Performed By: #### U RTPCR #### [facility] [address] [place] [address] Dr. Dwight Waters MANUAL DIFF REQ NO Normal [facility] Comment on above: Performed By: #### U RTPCR #### [facility] [address] [place] [address] Dr. Dwight Waters MCH (RBC) [Entitic mass] 27.6 pg Normal 25.9-34.0 [facility] Comment on above: Performed By: #### U RTPCR #### [facility] [address] [place] [address] Dr. Dwight Waters MCHC (RBC) [Mass/Vol] 32.3 g/dL Normal 29.9-35.2 [facility] Comment on above: Performed By: #### U RTPCR #### [facility] [address] [place] [address] Dr. Dwight Waters MCV (RBC) [Entitic vol] 85.5 fL Normal 80.0-94.0 [facility] Comment on above: Performed By: #### U RTPCR #### [facility] [address] [place] [address] Dr. Dwight Waters MONO # 0.5 103/ul Normal 0.3-0.8 [facility] Comment on above: Performed By: #### U RTPCR #### [facility] [address] [place] [address] Dr. Dwight Waters Monocytes/100 WBC (Bld) 8.8 % Normal 1.7-12.0 [facility] Comment on above: Performed By: #### U RTPCR #### [facility] [address] [place] [address] Dr. Dwight Waters NEUT # 3.1 103/ul Normal 1.4-6.5 [facility] Comment on above: Performed By: #### U RTPCR #### [facility] [address] [place] [address] Dr. Dwight Waters Neutrophils/100 WBC (Bld) 53.4 % Normal 43.0-75.0 [facility] Comment on above: Performed By: #### U RTPCR #### [facility] [address] [place] [address] Dr. Dwight Waters Platelet mean volume (Bld) [Entitic vol] 9.2 fL Critically low 9.5-13.5 [facility] Comment on above: Performed By: #### U RTPCR #### [facility] [address] [place] [address] Dr. Dwight Waters PLT 255 103/ul Normal 150-450 [facility] Comment on above: Performed By: #### U RTPCR #### [facility] [address] [place] [address] Dr. Dwight Waters RBC 5.65 106/ul Normal 4.70-6.10 [facility] Comment on above: Performed By: #### U RTPCR #### [facility] [address] [place] [address] Dr. Dwight Waters WBC 5.7 103/ul Normal 4.0-11.0 [facility] Comment on above: Performed By: #### U RTPCR #### [facility] [address] [place] [address] Dr. Dwight Waters GGTon 11-04-2022 Gamma glutamyl transferase [Catalytic activity/Vol] 22 U/L Normal 15-85 [facility] Comment on above: Performed By: #### U RTPCR #### [facility] [address] [place] [address] Dr. Dwight Waters MAGNESIUMon 11-04-2022 Magnesium [Mass/Vol] 1.8 mg/dL Normal 1.8-2.4 [facility] Comment on above: Performed By: #### U RTPCR #### [facility] [address] [place] [address] Dr. Dwight Waters RENAL FUNCTION PANELon 11-04 Albumin [Mass/Vol] 3.8 g/dL Normal 3.4-5.0 [facility] Comment on above: Performed By: #### U RTPCR #### [facility] [address] [place] [address] Dr. Dwight Waters Calcium [Mass/Vol] 9.3 mg/dL Normal 8.5-10.1 [facility] Comment on above: Performed By: #### U RTPCR #### [facility] [address] [address] [address] Dwight Waters Chloride [Moles/Vol] 107 mmol/L Normal 98-107 [facility] Comment on above: Performed By: #### U RTPCR #### [facility] [address] [address] [address] Dwight Waters CO2 [Moles/Vol] 29.2 mmol/L Normal 21.0-32.0 [facility] Comment on above: Performed By: #### U RTPCR #### [facility] [address] [place] [address] Dr. Dwight Waters Creatinine [Mass/Vol] 1.07 mg/dL Normal 0.70-1.30 [facility] Comment on above: Performed By: #### U RTPCR #### [facility] [address] [place] [address] Dr. Dwight Waters EGFR-AF SAUDI ARABIAN >60 Normal >=60 [facility] Comment on above: Performed By: #### U RTPCR #### [facility] [address] [place] [address] Dr. Dwight Waters EGFR-NON AF SAUDI ARABIAN >60 Normal >=60 [facility] Comment on above: Performed By: #### U RTPCR #### [facility] [address] [place] [address] Dr. Dwight Waters Glucose [Mass/Vol] 106 mg/dL Normal 74-106 [facility] Comment on above: Performed By: #### U RTPCR #### [facility] [address] [place] [address] Dr. Dwight Waters Phosphate [Mass/Vol] 2.8 mg/dL Normal 2.6-4.7 [facility] Comment on above: Performed By: #### U RTPCR #### [facility] [address] [place] [address] Dr. Dwight Waters Potassium [Moles/Vol] 4.1 mmol/L Normal 3.5-5.1 [facility] Comment on above: Performed By: #### U RTPCR #### [facility] [address] [place] [address] Dr. Dwight Waters Sodium [Moles/Vol] 143 mmol/L Normal 136-145 [facility] Comment on above: Performed By: #### U RTPCR #### [facility] [address] [place] [address] Dr. Dwight Waters Urea nitrogen [Mass/Vol] 12.0 mg/dL Normal 7.0-18.0 [facility] Comment on above: Performed By: #### U RTPCR #### [facility] [address] [place] [address] Dr. Dwight Waters SGOTon 11-04-2022 AST [Catalytic activity/Vol] 19 U/L Normal 15-37 [facility] Comment on above: Performed By: #### U RTPCR #### [facility] [address] [place] [address] Dr. Dwight Waters SGPTon 11-04-2022 ALT [Catalytic activity/Vol] 28 U/L Normal 16-63 [facility] Comment on above: Performed By: #### U RTPCR #### [facility] [address] [place] [address] Dr. Dwight Waters URINE T PROTEIN CREAT RATIOo n 11-04-2022 Protein (U) [Mass/Vol] 10.7 mg/dL Normal <=12.0 [facility] Comment on above: Performed By: #### U RTPCR #### [facility] [address] [place] [address] Dr. Dwight Waters UR PROT CREAT RAT 0.13 Normal [facility] Comment on above: Performed By: #### U RTPCR #### [facility] [address] [place] [address] Dr. Dwight Waters URINE CREAT 84.50 mg/dL Normal 20.00-300.00 [facility] Comment on above: Performed By: #### U RTPCR #### [facility] [address] [place] [address] Dr. Dwight Waters FK506 (TACROLIMUS) WHOLE BLO ODon 09-18-2022 Tacrolimus (FK506), Blood 4.6 ng/mL Normal 2.0-20.0 [facility] Comment on above: Result Comment: Trou gh (immediately following transplant) 15.0 . Trough (steady state, 2 weeks or more after transplant): 3.0 - 8.0 . Performed by LC-MS/MS technology. Performed By: #### U RTPCR #### [facility] [address] [place] [address] Dr. Dwight Waters BK VIRUS PCR QUANTon 022 BKV DNA QUANT PCR PLASMA Negative Normal Negative [facility] Comment on above: Result Comment: No B K DNA detected. . The linear range of the assay is 22 - 100,000,000 IU/mL. Performed By: #### U RTPCR #### [facility] [address] [place] [address] Dr. Dwight Waters Log10 BKV DNA Plasma Normal [facility] Comment on above: Performed By: #### U RTPCR #### [facility] [address] [place] [address] Dr. Dwight Waters ALKALINE PHOSPHAon ALP [Catalytic activity/Vol] 92 U/L Normal 46-116 [facility] Comment on above: Performed By: #### U RTPCR #### [facility] [address] [place] [address] Dr. Dwight Waters BILIRUBIN CONJUGATED (DIRECT )on 09-15-2022 BILI, CONJUGATED 0.3 mg/dL Critically high 0.0-0.2 [facility] Comment on above: Performed By: #### U RTPCR #### [facility] [address] [place] [address] Dr. Dwight Waters BILIRUBIN TOTALon 09-15-2022 Bilirubin [Mass/Vol] 1.1 mg/dL Critically high 0.2-1.0 [facility] Comment on above: Performed By: #### U RTPCR #### [facility] [address] [place] [address] Dr. Dwight Waters CBC AUTO DIFFon 09-15-2022 BASO # 0.1 103/ul Normal 0.0-0.1 [facility] Comment on above: Performed By: #### C BC #### [facility] [address] [place] [address] Dr. Dwight Waters Basophils/100 WBC (Bld) 0.8 % Normal 0.2-2.0 [facility] Comment on above: Performed By: #### C BC #### [facility] [address] [place] [address] Dr. Dwight Waters EO # 0.2 103/ul Normal 0.0-0.7 [facility] Comment on above: Performed By: #### C BC #### [facility] [address] [place] [address] Dr. Dwight Waters Eosinophils/100 WBC (Bld) 3.5 % Normal 0.9-7.0 [facility] Comment on above: Performed By: #### C BC #### [facility] [address] [place] [address] Dr. Dwight Waters Erythrocyte distribution width (RBC) [Ratio] 13.0 % Normal 11.0-15.0 [facility] Comment on above: Performed By: #### C BC #### [facility] [address] [place] [address] Dr. Dwight Waters Hematocrit (Bld) [Volume fraction] 50.0 % Normal 42.0-54.0 [facility] Comment on above: Performed By: #### C BC #### [facility] [address] [place] [address] Dr. Dwight Waters Hemoglobin (Bld) [Mass/Vol] 16.0 g/dL Normal 14.0-18.0 [facility] Comment on above: Performed By: #### C BC #### [facility] [address] [place] [address] Dr. Dwight Waters IG # 0.02 10e3/ul Normal 0.00-0.03 [facility] Comment on above: Performed By: #### C BC #### [facility] [address] [place] [address] Dr. Dwight Waters IG % 0.3 % Normal 0.0-0.5 [facility] Comment on above: Performed By: #### C BC #### [facility] [address] [place] [address] Dr. Dwight Waters LYMPH # 1.8 103/ul Normal 1.2-3.8 [facility] Comment on above: Performed By: #### C BC #### [facility] [address] [place] [address] Dr. Dwight Waters Lymphocytes/100 WBC (Bld) 26.5 % Normal 20.5-60.0 [facility] Comment on above: Performed By: #### C BC #### [facility] [address] [place] [address] Dr. Dwight Waters MANUAL DIFF REQ NO Normal [facility] Comment on above: Performed By: #### C BC #### [facility] [address] [place] [address] Dr. Dwight Waters MCH (RBC) [Entitic mass] 28.1 pg Normal 25.9-34.0 [facility] Comment on above: Performed By: #### C BC #### [facility] [address] [place] [address] Dr. Dwight Waters MCHC (RBC) [Mass/Vol] 32.0 g/dL Normal 29.9-35.2 [facility] Comment on above: Performed By: #### C BC #### [facility] [address] [place] [address] Dr. Dwight Waters MCV (RBC) [Entitic vol] 87.9 fL Normal 80.0-94.0 [facility] Comment on above: Performed By: #### C BC #### [facility] [address] [place] [address] Dr. Dwight Waters MONO # 0.5 103/ul Normal 0.3-0.8 [facility] Comment on above: Performed By: #### C BC #### [facility] [address] [place] [address] Dr. Dwight Waters Monocytes/100 WBC (Bld) 8.1 % Normal 1.7-12.0 [facility] Comment on above: Performed By: #### C BC #### [facility] [address] [place] [address] Dr. Dwight Waters NEUT # 4.0 103/ul Normal 1.4-6.5 [facility] Comment on above: Performed By: #### C BC #### [facility] [address] [place] [address] Dr. Dwight Waters Neutrophils/100 WBC (Bld) 60.8 % Normal 43.0-75.0 [facility] Comment on above: Performed By: #### C BC #### [facility] [address] [place] [address] Dr. Dwight Waters Platelet mean volume (Bld) [Entitic vol] 9.4 fL Critically low 9.5-13.5 [facility] Comment on above: Performed By: #### C BC #### [facility] [address] [place] [address] Dr. Dwight Waters PLT 265 103/ul Normal 150-450 [facility] Comment on above: Performed By: #### C BC #### [facility] [address] [place] [address] Dr. Dwight Waters RBC 5.69 106/ul Normal 4.70-6.10 [facility] Comment on above: Performed By: #### C BC #### [facility] [address] [place] [address] Dr. Dwight Waters WBC 6.6 103/ul Normal 4.0-11.0 [facility] Comment on above: Performed By: #### C BC #### [facility] [address] [place] [address] Dr. Dwight Waters GGTon 09-15-2022 Gamma glutamyl transferase [Catalytic activity/Vol] 23 U/L Normal 15-85 [facility] Comment on above: Performed By: #### U RTPCR #### [facility] [address] [place] [address] Dr. Dwight Waters MAGNESIUMon 09-15-2022 Magnesium [Mass/Vol] 1.8 mg/dL Normal 1.8-2.4 [facility] Comment on above: Performed By: #### U RTPCR #### [facility] [address] [place] [address] Dr. Dwight Waters RENAL FUNCTION PANELon 09-15 Albumin [Mass/Vol] 4.1 g/dL Normal 3.4-5.0 [facility] Comment on above: Performed By: #### C BC #### [facility] [address] [place] [address] Dr. Dwight Waters Calcium [Mass/Vol] 9.3 mg/dL Normal 8.5-10.1 [facility] Comment on above: Performed By: #### C BC #### [facility] [address] [place] [address] Dr. Dwight Waters Chloride [Moles/Vol] 107 mmol/L Normal 98-107 [facility] Comment on above: Performed By: #### C BC #### [facility] [address] [place] [address] Dr. Dwight Waters CO2 [Moles/Vol] 25.6 mmol/L Normal 21.0-32.0 [facility] Comment on above: Performed By: #### C BC #### [facility] [address] [place] [address] Dr. Dwight Waters Creatinine [Mass/Vol] 1.01 mg/dL Normal 0.70-1.30 [facility] Comment on above: Performed By: #### C BC #### [facility] [address] [place] [address] Dr. Dwight Waters EGFR-AF SAUDI ARABIAN >60 Normal >=60 [facility] Comment on above: Performed By: #### C BC #### [facility] [address] [place] [address] Dr. Dwight Waters EGFR-NON AF SAUDI ARABIAN >60 Normal >=60 [facility] Comment on above: Performed By: #### C BC #### [facility] [address] [place] [address] Dr. Dwight Waters Glucose [Mass/Vol] 119 mg/dL Critically high 74-106 [facility] Comment on above: Performed By: #### C BC #### [facility] [address] [place] [address] Dr. Dwight Waters Phosphate [Mass/Vol] 2.8 mg/dL Normal 2.6-4.7 [facility] Comment on above: Performed By: #### C BC #### [facility] [address] [place] [address] Dr. Dwight Waters Potassium [Moles/Vol] 4.0 mmol/L Normal 3.5-5.1 [facility] Comment on above: Performed By: #### C BC #### [facility] [address] [place] [address] Dr. Dwight Waters Sodium [Moles/Vol] 141 mmol/L Normal 136-145 [facility] Comment on above: Performed By: #### C BC #### [facility] [address] [place] [address] Dr. Dwight Waters Urea nitrogen [Mass/Vol] 15.0 mg/dL Normal 7.0-18.0 [facility] Comment on above: Performed By: #### C BC #### [facility] [address] [place] [address] Dr. Dwight Albert 09-15-2022 AST [Catalytic activity/Vol] 18 U/L Normal 15-37 [facility] Comment on above: Performed By: #### U RTPCR #### [facility] [address] [place] [address] Dr. Dwight Waters SGPTon 09-15-2022 ALT [Catalytic activity/Vol] 32 U/L Normal 16-63 [facility] Comment on above: Performed By: #### C BC #### [facility] [address] [place] [address] Dr. Dwight Waters URINE T PROTEIN CREAT RATIOo n 09-15-2022 Protein (U) [Mass/Vol] 14.1 mg/dL Critically high <=12.0 [facility] Comment on above: Performed By: #### U RTPCR #### [facility] [address] [place] [address] Dr. Dwight Waters UR PROT CREAT RAT 0.14 Normal [facility] Comment on above: Performed By: #### U RTPCR #### [facility] [address] [place] [address] Dr. Dwight Waters URINE CREAT 98.89 mg/dL Normal 20.00-300.00 [facility] Comment on above: Performed By: #### U RTPCR #### [facility] [address] [address] [address] Dwight Waters US CAROTID ART BILon [...] MÓNICA JIMENEZ Date: 2022-08-28 13:20 Normal [facility] FK506 (TACROLIMUS) WHOLE BLO ODon 08-17-2022 Tacrolimus (FK506), Blood 9.9 ng/mL Normal 2.0-20.0 [facility] Comment on above: Result Comment: Trou gh (immediately following transplant) 15.0 . Trough (steady state, 2 weeks or more after transplant): 3.0 - 8.0 . Performed by LC-MS/MS technology. Performed By: #### F [id number] #### [facility] [address] [place] [address] Dr. Dwight Waters BK VIRUS PCR QUANTon 022 BKV DNA QUANT PCR PLASMA Negative Normal Negative [facility] Comment on above: Result Comment: No B K DNA detected. . The linear range of the assay is 22 - 100,000,000 IU/mL. Performed By: #### U RTPCR #### [facility] [address] [place] [address] Dr. Dwight Waters Log10 BKV DNA Plasma [facility] [facility] Comment on above: Performed By: #### U RTPCR #### [facility] [address] [place] [address] Dr. Dwight Waters ALBUMINon 08-14-2022 Albumin [Mass/Vol] 4.2 g/dL Normal 3.4-5.0 [facility] Comment on above: Performed By: #### F [id number] #### [facility] [address] [place] [address] Dr. Dwight Waters ALKALINE PHOSPHAon ALP [Catalytic activity/Vol] 92 U/L Normal 46-116 [facility] Comment on above: Performed By: #### C BC #### [facility] [address] [place] [address] Dr. Dwight Waters BILIRUBIN CONJUGATED (DIRECT )on 08-14-2022 BILI, CONJUGATED 0.3 mg/dL Critically high 0.0-0.2 [facility] Comment on above: Performed By: #### F [id number] #### [facility] [address] [place] [address] Dr. Dwight Waters BILIRUBIN TOTALon 08-14-2022 Bilirubin [Mass/Vol] 1.5 mg/dL Critically high 0.2-1.0 [facility] Comment on above: Performed By: #### F [id number] #### [facility] [address] [place] [address] Dr. Dwight Waters BUNon 08-14-2022 Urea nitrogen [Mass/Vol] 11.0 mg/dL Normal 7.0-18.0 [facility] Comment on above: Performed By: #### C BC #### [facility] [address] [place] [address] Dr. Dwight Waters CALCIUMon 08-14-2022 Calcium [Mass/Vol] 9.4 mg/dL Normal 8.5-10.1 [facility] Comment on above: Performed By: #### F [id number] #### [facility] [address] [place] [address] Dr. Dwight Waters CBC AUTO DIFFon 08-14-2022 BASO # 0.0 103/ul Normal 0.0-0.1 [facility] Comment on above: Performed By: #### C MP #### [facility] [address] [place] [address] Dr. Dwight Waters Basophils/100 WBC (Bld) 0.5 % Normal 0.2-2.0 [facility] Comment on above: Performed By: #### C MP #### [facility] [address] [place] [address] Dr. Dwight Waters EO # 0.2 103/ul Normal 0.0-0.7 [facility] Comment on above: Performed By: #### C MP #### [facility] [address] [place] [address] Dr. Dwight Waters Eosinophils/100 WBC (Bld) 2.6 % Normal 0.9-7.0 [facility] Comment on above: Performed By: #### C MP #### [facility] [address] [place] [address] Dr. Dwight Waters Erythrocyte distribution width (RBC) [Ratio] 13.1 % Normal 11.0-15.0 [facility] Comment on above: Performed By: #### C MP #### [facility] [address] [place] [address] Dr. Dwight Waters Hematocrit (Bld) [Volume fraction] 47.0 % Normal 42.0-54.0 [facility] Comment on above: Performed By: #### C MP #### [facility] [address] [place] [address] Dr. Dwight Waters Hemoglobin (Bld) [Mass/Vol] 15.3 g/dL Normal 14.0-18.0 [facility] Comment on above: Performed By: #### C MP #### [facility] [address] [place] [address] Dr. Dwight Waters IG # 0.01 10e3/ul Normal 0.00-0.03 [facility] Comment on above: Performed By: #### C MP #### [facility] [address] [place] [address] Dr. Dwight Waters IG % 0.1 % Normal 0.0-0.5 [facility] Comment on above: Performed By: #### C MP #### [facility] [address] [place] [address] Dr. Dwight Waters LYMPH # 2.3 103/ul Normal 1.2-3.8 [facility] Comment on above: Performed By: #### C MP #### [facility] [address] [place] [address] Dr. Dwight Waters Lymphocytes/100 WBC (Bld) 29.8 % Normal 20.5-60.0 [facility] Comment on above: Performed By: #### C MP #### [facility] [address] [place] [address] Dr. Dwight Waters MANUAL DIFF REQ NO Normal [facility] Comment on above: Performed By: #### C MP #### [facility] [address] [place] [address] Dr. Dwight Waters MCH (RBC) [Entitic mass] 28.2 pg Normal 25.9-34.0 [facility] Comment on above: Performed By: #### C MP #### [facility] [address] [place] [address] Dr. Dwight Waters MCHC (RBC) [Mass/Vol] 32.6 g/dL Normal 29.9-35.2 [facility] Comment on above: Performed By: #### C MP #### [facility] [address] [place] [address] Dr. Dwight Waters MCV (RBC) [Entitic vol] 86.7 fL Normal 80.0-94.0 [facility] Comment on above: Performed By: #### C MP #### [facility] [address] [place] [address] Dr. Dwight Waters MONO # 0.7 103/ul Normal 0.3-0.8 [facility] Comment on above: Performed By: #### C MP #### [facility] [address] [place] [address] Dr. Dwight Waters Monocytes/100 WBC (Bld) 8.5 % Normal 1.7-12.0 [facility] Comment on above: Performed By: #### C MP #### [facility] [address] [place] [address] Dr. Dwight Waters NEUT # 4.5 103/ul Normal 1.4-6.5 [facility] Comment on above: Performed By: #### C MP #### [facility] [address] [place] [address] Dr. Dwight Waters Neutrophils/100 WBC (Bld) 58.5 % Normal 43.0-75.0 [facility] Comment on above: Performed By: #### C MP #### [facility] [address] [place] [address] Dr. Dwight Waters Platelet mean volume (Bld) [Entitic vol] 9.7 fL Normal 9.5-13.5 [facility] Comment on above: Performed By: #### C MP #### [facility] [address] [place] [address] Dr. Dwight Waters PLT 266 103/ul Normal 150-450 [facility] Comment on above: Performed By: #### C MP #### [facility] [address] [place] [address] Dr. Dwight Waters RBC 5.42 106/ul Normal 4.70-6.10 [facility] Comment on above: Performed By: #### C MP #### [facility] [address] [place] [address] Dr. Dwight Waters WBC 7.6 103/ul Normal 4.0-11.0 [facility] Comment on above: Performed By: #### C MP #### [facility] [address] [place] [address] Dr. Dwight Waters CHLORIDEon 08-14-2022 Chloride [Moles/Vol] 104 mmol/L Normal 98-107 [facility] Comment on above: Performed By: #### C BC #### [facility] [address] [place] [address] Dr. Dwight Waters CO2on 08-14-2022 CO2 [Moles/Vol] 27.9 mmol/L Normal 21.0-32.0 [facility] Comment on above: Performed By: #### C BC #### [facility] [address] [place] [address] Dr. Dwight Waters CREATININEon 08-14-2022 Creatinine [Mass/Vol] 1.08 mg/dL Normal 0.70-1.30 [facility] Comment on above: Performed By: #### C BC #### [facility] [address] [place] [address] Dr. Dwight Waters EGFR-AF SAUDI ARABIAN >60 Normal >=60 [facility] Comment on above: Performed By: #### C BC #### [facility] [address] [address] [address] Dwight Waters EGFR-NON AF SAUDI ARABIAN >60 Normal >=60 [facility] Comment on above: Performed By: #### C BC #### [facility] [address] [place] [address] Dr. Dwight Waters GGTon 08-14-2022 Gamma glutamyl transferase [Catalytic activity/Vol] 24 U/L Normal 15-85 [facility] Comment on above: Performed By: #### F [id number] #### [facility] [address] [place] [address] Dr. Dwight Waters GLUCOSE BLOODon 08-14-2022 Glucose [Mass/Vol] 111 mg/dL Critically high 74-106 [facility] Comment on above: Performed By: #### C BC #### [facility] [address] [place] [address] Dr. Dwight Waters MAGNESIUMon 08-14-2022 Magnesium [Mass/Vol] 1.4 mg/dL Critically low 1.8-2.4 [facility] Comment on above: Performed By: #### C BC #### [facility] [address] [place] [address] Dr. Dwight Waters NAon 08-14-2022 Sodium [Moles/Vol] 140 mmol/L Normal 136-145 [facility] Comment on above: Performed By: #### F [id number] #### [facility] [address] [place] [address] Dr. Dwight Waters PHOSPHORUSon 08-14-2022 Phosphate [Mass/Vol] 3.1 mg/dL Normal 2.6-4.7 [facility] Comment on above: Performed By: #### C BC #### [facility] [address] [place] [address] Dr. Dwight Waters POTASSIUMon 08-14-2022 Potassium [Moles/Vol] 3.5 mmol/L Normal 3.5-5.1 [facility] Comment on above: Performed By: #### C BC #### [facility] [address] [place] [address] Dr. Dwight OLVERAOTon 08-14-2022 AST [Catalytic activity/Vol] 17 U/L Normal 15-37 [facility] Comment on above: Performed By: #### F [id number] #### [facility] [address] [place] [address] Dr. Dwight OLVERAPTon 08-14-2022 ALT [Catalytic activity/Vol] 22 U/L Normal 16-63 [facility] Comment on above: Performed By: #### F [id number] #### [facility] [address] [place] [address] Dr. Dwight Waters URINE T PROTEIN CREAT RATIOo n 08-14-2022 Protein (U) [Mass/Vol] 10.7 mg/dL Normal <=12.0 [facility] Comment on above: Performed By: #### F [id number] #### [facility] [address] [place] [address] Dr. Dwight Waters UR PROT CREAT RAT 0.10 Normal [facility] Comment on above: Performed By: #### F [id number] #### [facility] [address] [place] [address] Dr. Dwight Waters URINE CREAT 104.28 mg/dL Normal 20.00-300.00 [facility] Comment on above: Performed By: #### F [id number] #### [facility] [address] [place] [address] Dr. Dwight Waters NEPHROSTOMY TUBE REMOVALon 0 [...] Assisting physician present for entire procedure: yes [facility] Radiology Study observation (narrative) [facility] FK506 (TACROLIMUS) WHOLE BLO ODon 07-06-2022 Tacrolimus (FK506), Blood 9.5 ng/mL Normal 2.0-20.0 [facility] Comment on above: Result Comment: Trou gh (immediately following transplant) 15.0 . Trough (steady state, 2 weeks or more after transplant): 3.0 - 8.0 . Performed by LC-MS/MS technology. Performed By: #### C MP #### [facility] [address] [place] [address] Dr. Dwight Waters ALBUMINon 07-03-2022 Albumin [Mass/Vol] 3.7 g/dL Normal 3.4-5.0 [facility] Comment on above: Performed By: #### U RTPCR #### [facility] [address] [place] [address] Dr. Dwight Waters ALKALINE PHOSPHAon ALP [Catalytic activity/Vol] 76 U/L Normal 46-116 [facility] Comment on above: Performed By: #### U RTPCR #### [facility] [address] [place] [address] Dr. Dwight Waters BILIRUBIN CONJUGATED (DIRECT )on 07-03-2022 BILI, CONJUGATED 0.3 mg/dL Critically high 0.0-0.2 [facility] Comment on above: Performed By: #### C BC #### [facility] [address] [place] [address] Dr. Dwight Waters BILIRUBIN TOTALon 07-03-2022 Bilirubin [Mass/Vol] 1.4 mg/dL Critically high 0.2-1.0 [facility] Comment on above: Performed By: #### C BC #### [facility] [address] [place] [address] Dr. Dwight Waters BUNon 07-03-2022 Urea nitrogen [Mass/Vol] 15.0 mg/dL Normal 7.0-18.0 [facility] Comment on above: Performed By: #### C BC #### [facility] [address] [place] [address] Dr. Dwight Waters CALCIUMon 07-03-2022 Calcium [Mass/Vol] 9.4 mg/dL Normal 8.5-10.1 [facility] Comment on above: Performed By: #### U RTPCR #### [facility] [address] [place] [address] Dr. Dwight Waters CBC AUTO DIFFon 07-03-2022 BASO # 0.0 103/ul Normal 0.0-0.1 [facility] Comment on above: Performed By: #### U RTPCR #### [facility] [address] [place] [address] Dr. Dwight Waters Basophils/100 WBC (Bld) 0.6 % Normal 0.2-2.0 [facility] Comment on above: Performed By: #### U RTPCR #### [facility] [address] [place] [address] Dr. Dwight Waters EO # 0.2 103/ul Normal 0.0-0.7 [facility] Comment on above: Performed By: #### U RTPCR #### [facility] [address] [place] [address] Dr. Dwight Waters Eosinophils/100 WBC (Bld) 3.5 % Normal 0.9-7.0 [facility] Comment on above: Performed By: #### U RTPCR #### [facility] [address] [place] [address] Dr. Dwight Waters Erythrocyte distribution width (RBC) [Ratio] 12.9 % Normal 11.0-15.0 [facility] Comment on above: Performed By: #### U RTPCR #### [facility] [address] [place] [address] Dr. Dwight Waters Hematocrit (Bld) [Volume fraction] 44.2 % Normal 42.0-54.0 [facility] Comment on above: Performed By: #### U RTPCR #### [facility] [address] [place] [address] Dr. Dwight Waters Hemoglobin (Bld) [Mass/Vol] 14.6 g/dL Normal 14.0-18.0 [facility] Comment on above: Performed By: #### U RTPCR #### [facility] [address] [place] [address] Dr. Dwight Waters IG # 0.02 10e3/ul Normal 0.00-0.03 [facility] Comment on above: Performed By: #### U RTPCR #### [facility] [address] [place] [address] Dr. Dwight Waters IG % 0.3 % Normal 0.0-0.5 [facility] Comment on above: Performed By: #### U RTPCR #### [facility] [address] [place] [address] Dr. Dwight Waters LYMPH # 2.0 103/ul Normal 1.2-3.8 [facility] Comment on above: Performed By: #### U RTPCR #### [facility] [address] [place] [address] Dr. Dwight Waters Lymphocytes/100 WBC (Bld) 28.4 % Normal 20.5-60.0 [facility] Comment on above: Performed By: #### U RTPCR #### [facility] [address] [place] [address] Dr. Dwight Waters MANUAL DIFF REQ NO Normal [facility] Comment on above: Performed By: #### U RTPCR #### [facility] [address] [place] [address] Dr. Dwight Waters MCH (RBC) [Entitic mass] 28.6 pg Normal 25.9-34.0 [facility] Comment on above: Performed By: #### U RTPCR #### [facility] [address] [place] [address] Dr. Dwight Waters MCHC (RBC) [Mass/Vol] 33.0 g/dL Normal 29.9-35.2 [facility] Comment on above: Performed By: #### U RTPCR #### [facility] [address] [place] [address] Dr. Dwight Waters MCV (RBC) [Entitic vol] 86.7 fL Normal 80.0-94.0 [facility] Comment on above: Performed By: #### U RTPCR #### [facility] [address] [place] [address] Dr. Dwight Waters MONO # 0.6 103/ul Normal 0.3-0.8 [facility] Comment on above: Performed By: #### U RTPCR #### [facility] [address] [place] [address] Dr. Dwight Waters Monocytes/100 WBC (Bld) 9.1 % Normal 1.7-12.0 [facility] Comment on above: Performed By: #### U RTPCR #### [facility] [address] [place] [address] Dr. Dwight Waters NEUT # 4.0 103/ul Normal 1.4-6.5 [facility] Comment on above: Performed By: #### U RTPCR #### [facility] [address] [place] [address] Dr. Dwight Waters Neutrophils/100 WBC (Bld) 58.1 % Normal 43.0-75.0 [facility] Comment on above: Performed By: #### U RTPCR #### [facility] [address] [place] [address] Dr. Dwight Waters Platelet mean volume (Bld) [Entitic vol] 9.5 fL Normal 9.5-13.5 [facility] Comment on above: Performed By: #### U RTPCR #### [facility] [address] [address] [address] Dwight Waters PLT 292 103/ul Normal 150-450 [facility] Comment on above: Performed By: #### U RTPCR #### [facility] [address] [place] [address] Dr. Dwight Waters RBC 5.10 106/ul Normal 4.70-6.10 [facility] Comment on above: Performed By: #### U RTPCR #### [facility] [address] [address] [address] Dwight Waters WBC 6.9 103/ul Normal 4.0-11.0 [facility] Comment on above: Performed By: #### U RTPCR #### [facility] [address] [place] [address] Dr. Dwight Waters CHLORIDEon 07-03-2022 Chloride [Moles/Vol] 108 mmol/L Critically high 98-107 [facility] Comment on above: Performed By: #### C BC #### [facility] [address] [place] [address] Dr. Dwight Waters CO2on 07-03-2022 CO2 [Moles/Vol] 25.2 mmol/L Normal 21.0-32.0 [facility] Comment on above: Performed By: #### C BC #### [facility] [address] [place] [address] Dr. Dwight Waters CREATININEon 07-03-2022 Creatinine [Mass/Vol] 1.03 mg/dL Normal 0.70-1.30 [facility] Comment on above: Performed By: #### U RTPCR #### [facility] [address] [place] [address] Dr. Dwight Waters EGFR-AF SAUDI ARABIAN >60 Normal >=60 [facility] Comment on above: Performed By: #### U RTPCR #### [facility] [address] [place] [address] Dr. Dwight Waters EGFR-NON AF SAUDI ARABIAN >60 Normal >=60 [facility] Comment on above: Performed By: #### U RTPCR #### [facility] [address] [place] [address] Dr. Dwight Waters GGTon 07-03-2022 Gamma glutamyl transferase [Catalytic activity/Vol] 31 U/L Normal 15-85 [facility] Comment on above: Performed By: #### U RTPCR #### [facility] [address] [place] [address] Dr. Dwight Waters GLUCOSE BLOODon 07-03-2022 Glucose [Mass/Vol] 119 mg/dL Critically high 74-106 [facility] Comment on above: Performed By: #### U RTPCR #### [facility] [address] [place] [address] Dr. Dwight Waters MAGNESIUMon 07-03-2022 Magnesium [Mass/Vol] 1.4 mg/dL Critically low 1.8-2.4 [facility] Comment on above: Performed By: #### C BC #### [facility] [address] [place] [address] Dr. Dwight Waters NAon 07-03-2022 Sodium [Moles/Vol] 142 mmol/L Normal 136-145 [facility] Comment on above: Performed By: #### C MP #### [facility] [address] [place] [address] Dr. Dwight Waters PHOSPHORUSon 07-03-2022 Phosphate [Mass/Vol] 3.4 mg/dL Normal 2.6-4.7 [facility] Comment on above: Performed By: #### C BC #### [facility] [address] [place] [address] Dr. Dwight Waters POTASSIUMon 07-03-2022 Potassium [Moles/Vol] 4.1 mmol/L Normal 3.5-5.1 [facility] Comment on above: Performed By: #### C BC #### [facility] [address] [place] [address] Dr. Dwight Waters SGOTon 07-03-2022 AST [Catalytic activity/Vol] 14 U/L Critically low 15-37 [facility] Comment on above: Performed By: #### C BC #### [facility] [address] [place] [address] Dr. Dwight Waters SGPTon 07-03-2022 ALT [Catalytic activity/Vol] 25 U/L Normal 16-63 [facility] Comment on above: Performed By: #### C #### [facility] [id number] Dwight Waters KIDNEYSon 07-03-2022 US KIDNEYS Ultrasound kidneys, bilateral HISTORY: Transplant of kidney , pain in the right lower quadrant COMPARISON: None. TECHNIQUE: Transabdominal ultrasound imaging of both kidneys was performed. FINDINGS: The [place] kidneys are diffusely echogenic and atrophic with cortical thinning. The right kidney measures 8.3 x 3.5 x 4.07 m and the left measures 9.9 x 3.8 x 3.6 cm. No hydronephrosis of the [place] kidneys. There is a renal transplant in [...] stone involving the renal transplant. 2. Atrophic [place] kidneys. 3. Normal bladder. Electronically authenticated by: ARCELIA PIZARRO Date: 2022-07-03 17:22 [address] [facility] [address] Abdomen and Pelvis WO con traston 06-27-2022 IMPRESSION: 1. Both [place] kidneys are atrophic with improvement in right-sided [...] Adrenals: Adrenal glands are unremarkable. Kidneys: Both [place] kidneys are atrophic. Interval improvement in right [place] kidney hydronephrosis since May 15, 2022. Status [...] Adrenals: Adrenal glands are unremarkable. Kidneys: Both [place] kidneys are atrophic. Interval improvement in right [place] kidney hydronephrosis since May 15, 2022. Status [...] aggressive osseous lesions. IMPRESSION IMPRESSION: 1. Both [place] kidneys are atrophic with improvement in right-sided hydronephrosis since May 15, 2022. 2. 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 No hydronephrosis. No discrete perinephric collection. 3. Partially imaged postsurgical changes related to prior liver transplant. 4. The bladder is decompressed, limiting evaluation. [facility] Radiology Study observation (narrative) [facility] CT Abdomen and Pelvis WO con trastOrdered By: Gera Lu on 06-27-2022 [facility] Work Phone: CBC AUTO DIFFon 06-18-2022 BASO # 0.0 103/ul Normal 0.0-0.1 [facility] Comment on above: Performed By: #### U RTPCR #### [facility] [address] [address] [address] Dwight Waters Basophils/100 WBC (Bld) 0.5 % Normal 0.2-2.0 [facility] Comment on above: Performed By: #### U RTPCR #### [facility] [address] [address] [address] Dwight Waters EO # 0.2 103/ul Normal 0.0-0.7 [facility] Comment on above: Performed By: #### U RTPCR #### [facility] [address] [place] [address] Dr. Dwight Waters Eosinophils/100 WBC (Bld) 2.3 % Normal 0.9-7.0 [facility] Comment on above: Performed By: #### U RTPCR #### [facility] [address] [place] [address] Dr. Dwight Waters Erythrocyte distribution width (RBC) [Ratio] 12.9 % Normal 11.0-15.0 [facility] Comment on above: Performed By: #### U RTPCR #### [facility] [address] [place] [address] Dr. Dwight Waters Hematocrit (Bld) [Volume fraction] 41.2 % Critically low 42.0-54.0 [facility] Comment on above: Performed By: #### U RTPCR #### [facility] [address] [place] [address] Dr. Dwight Waters Hemoglobin (Bld) [Mass/Vol] 13.3 g/dL Critically low 14.0-18.0 [facility] Comment on above: Performed By: #### U RTPCR #### [facility] [address] [place] [address] Dr. Dwight Waters IG # 0.04 10e3/ul Critically high 0.00-0.03 [facility] Comment on above: Performed By: #### U RTPCR #### [facility] [address] [place] [address] Dr. Dwight Waters IG % 0.5 % Normal 0.0-0.5 [facility] Comment on above: Performed By: #### U RTPCR #### [facility] [address] [place] [address] Dr. Dwight Waters LYMPH # 2.0 103/ul Normal 1.2-3.8 [facility] Comment on above: Performed By: #### U RTPCR #### [facility] [address] [place] [address] Dr. Dwight Waters Lymphocytes/100 WBC (Bld) 22.9 % Normal 20.5-60.0 [facility] Comment on above: Performed By: #### U RTPCR #### [facility] [address] [place] [address] Dr. Dwight Waters MANUAL DIFF REQ NO Normal [facility] Comment on above: Performed By: #### U RTPCR #### [facility] [address] [place] [address] Dr. Dwight Waters MCH (RBC) [Entitic mass] 28.7 pg Normal 25.9-34.0 [facility] Comment on above: Performed By: #### U RTPCR #### [facility] [address] [place] [address] Dr. Dwight Waters MCHC (RBC) [Mass/Vol] 32.3 g/dL Normal 29.9-35.2 [facility] Comment on above: Performed By: #### U RTPCR #### [facility] [address] [place] [address] Dr. Dwight Waters MCV (RBC) [Entitic vol] 88.8 fL Normal 80.0-94.0 [facility] Comment on above: Performed By: #### U RTPCR #### [facility] [address] [place] [address] Dr. Dwight Waters MONO # 0.8 103/ul Normal 0.3-0.8 [facility] Comment on above: Performed By: #### U RTPCR #### [facility] [address] [place] [address] Dr. Dwight Waters Monocytes/100 WBC (Bld) 9.7 % Normal 1.7-12.0 [facility] Comment on above: Performed By: #### U RTPCR #### [facility] [address] [place] [address] Dr. Dwight Waters NEUT # 5.6 103/ul Normal 1.4-6.5 [facility] Comment on above: Performed By: #### U RTPCR #### [facility] [address] [place] [address] Dr. Dwight Waters Neutrophils/100 WBC (Bld) 64.1 % Normal 43.0-75.0 [facility] Comment on above: Performed By: #### U RTPCR #### [facility] [address] [place] [address] Dr. Dwight Waters Platelet mean volume (Bld) [Entitic vol] 10.0 fL Normal 9.5-13.5 [facility] Comment on above: Performed By: #### U RTPCR #### [facility] [address] [place] [address] Dr. Dwight Waters PLT 270 103/ul Normal 150-450 [facility] Comment on above: Performed By: #### U RTPCR #### [facility] [address] [place] [address] Dr. Dwight Waters RBC 4.64 106/ul Critically low 4.70-6.10 [facility] Comment on above: Performed By: #### U RTPCR #### [facility] [address] [place] [address] Dr. Dwight Waters WBC 8.7 103/ul Normal 4.0-11.0 [facility] Comment on above: Performed By: #### U RTPCR #### [facility] [address] [place] [address] Dr. Dwight Waters CULTURE URINEon 06-18-2022 CULTURE URINE Culture Observations : NO GROWTH. Normal [facility] Comment on above: Performed By: #### U RTPCR #### [facility] [address] [place] [address] Dr. Dwight Waters [facility] SARS-CoV-2 (COVID-19) RNA ESTELITA+probe Ql (Unsp spec) Not detected Normal NOT DETECTED [facility] Comment on above: Result Comment: When [...] for this test is supported by the Customer Security Clerk of Health and Human Service's declaration that [...] used). Performed By: #### C BC #### [facility] [address] [place] [address] Dr. Dwight Waters ER URINE PROFILEon 2 Bilirubin Ql (U) Negative Normal NEGATIVE [facility] Comment on above: Performed By: #### U RTPCR #### [facility] [address] [place] [address] Dr. Dwight Waters Clarity (U) CLEAR Normal CLEAR [facility] Comment on above: Performed By: #### U RTPCR #### [facility] [address] [place] [address] Dr. Dwight Waters Color (U) YELLOW Normal YELLOW [facility] Comment on above: Performed By: #### U RTPCR #### [facility] [address] [place] [address] Dr. Dwight Waters ERUAHD A micrscopic examina tion will be performed if indicated. Normal [facility] Comment on above: Performed By: #### U RTPCR #### [facility] [address] [place] [address] Dr. Dwight Waters Glucose Ql (U) Negative Normal NEGATIVE [facility] Comment on above: Performed By: #### U RTPCR #### [facility] [address] [place] [address] Dr. Dwight Waters Hemoglobin Ql (U) LARGE Abnormal NEGATIVE [facility] Comment on above: Performed By: #### U RTPCR #### [facility] [address] [place] [address] Dr. Dwight Waters Ketones Ql (U) Negative Normal NEGATIVE [facility] Comment on above: Performed By: #### U RTPCR #### [facility] [address] [place] [address] Dr. Dwight Waters LEUKOCYTES TRACE Abnormal NEGATIVE [facility] Comment on above: Performed By: #### U RTPCR #### [facility] [address] [place] [address] Dr. Dwight Waters Nitrite Ql (U) Negative Normal NEGATIVE [facility] Comment on above: Performed By: #### U RTPCR #### [facility] [address] [place] [address] Dr. Dwight Waters pH (U) 6.0 [pH] Normal 5-9 [facility] Comment on above: Performed By: #### U RTPCR #### [facility] [address] [place] [address] Dr. Dwight Waters Protein (U) [Mass/Vol] 30 mg/dL Abnormal NEGATIVE/ TRACE [facility] Comment on above: Performed By: #### U RTPCR #### [facility] [address] [place] [address] Dr. Dwight Waters SPEC GRAVITY >=1.030 Abnormal 1.005-<=1.02 5 [facility] Comment on above: Performed By: #### U RTPCR #### [facility] [address] [place] [address] Dr. Dwight Waters UR MICRO IND INDICATED Normal [facility] Comment on above: Performed By: #### U RTPCR #### [facility] [address] [place] [address] Dr. Dwight Waters Urobilinogen Qn (U) 0.2 {Alyssa'U}/dL Normal 0.2 - 1. 0 [facility] Comment on above: Performed By: #### U RTPCR #### [facility] [address] [place] [address] Dr. Dwight Waters PROF 14(COMP METB)on 022 Albumin [Mass/Vol] 3.7 g/dL Normal 3.4-5.0 [facility] Comment on above: Performed By: #### C MP #### [facility] [address] [place] [address] Dr. Dwight Waters Albumin/Globulin [Mass ratio] 0.9 {ratio} Normal [facility] Comment on above: Performed By: #### C MP #### [facility] [address] [place] [address] Dr. Dwight Waters ALP [Catalytic activity/Vol] 80 U/L Normal 46-116 [facility] Comment on above: Performed By: #### C MP #### [facility] [address] [place] [address] Dr. Dwight Waters ALT [Catalytic activity/Vol] 24 U/L Normal 16-63 [facility] Comment on above: Performed By: #### C MP #### [facility] [address] [place] [address] Dr. Dwight Waters Anion gap [Moles/Vol] 12.9 mmol/L Normal [facility] Comment on above: Performed By: #### C MP #### [facility] [address] [place] [address] Dr. Dwight Waters AST [Catalytic activity/Vol] 17 U/L Normal 15-37 [facility] Comment on above: Performed By: #### C MP #### [facility] [address] [place] [address] Dr. Dwight Waters Bilirubin [Mass/Vol] 0.8 mg/dL Normal 0.2-1.0 [facility] Comment on above: Performed By: #### C MP #### [facility] [address] [place] [address] Dr. Dwight Waters Calcium [Mass/Vol] 9.4 mg/dL Normal 8.5-10.1 [facility] Comment on above: Performed By: #### C MP #### [facility] [address] [place] [address] Dr. Dwight Waters Chloride [Moles/Vol] 106 mmol/L Normal 98-107 [facility] Comment on above: Performed By: #### C MP #### [facility] [address] [place] [address] Dr. Dwight Waters CO2 [Moles/Vol] 25.3 mmol/L Normal 21.0-32.0 [facility] Comment on above: Performed By: #### C MP #### [facility] [address] [place] [address] Dr. Dwight Waters Creatinine [Mass/Vol] 1.29 mg/dL Normal 0.70-1.30 [facility] Comment on above: Performed By: #### C MP #### [facility] [address] [place] [address] Dr. Dwight Waters EGFR-AF SAUDI ARABIAN >60 Normal >=60 [facility] Comment on above: Performed By: #### C MP #### [facility] [address] [place] [address] Dr. Dwight Waters EGFR-NON AF SAUDI ARABIAN 59 mL/min/1.73m2 Critically low >=60 [facility] Comment on above: Performed By: #### C MP #### [facility] [address] [place] [address] Dr. Dwight Waters Globulin (S) [Mass/Vol] 4.2 g/dL Normal [facility] Comment on above: Performed By: #### C MP #### [facility] [address] [place] [address] Dr. Dwight Waters Glucose [Mass/Vol] 106 mg/dL Normal 74-106 [facility] Comment on above: Performed By: #### C MP #### [facility] [address] [place] [address] Dr. Dwight Waters Potassium [Moles/Vol] 4.2 mmol/L Normal 3.5-5.1 [facility] Comment on above: Performed By: #### C MP #### [facility] [address] [place] [address] Dr. Dwight Waters Protein [Mass/Vol] 7.9 g/dL Normal 6.4-8.2 [facility] Comment on above: Performed By: #### C MP #### [facility] [address] [place] [address] Dr. Dwight Waters Sodium [Moles/Vol] 140 mmol/L Normal 136-145 [facility] Comment on above: Performed By: #### C MP #### [facility] [address] [place] [address] Dr. Dwight Waters Urea nitrogen [Mass/Vol] 22.0 mg/dL Critically high 7.0-18.0 [facility] Comment on above: Performed By: #### C MP #### [facility] [address] [place] [address] Dr. Dwight Waters Urea nitrogen/Creatinine [Mass ratio] 17.1 mg/mg Normal [facility] Comment on above: Performed By: #### C MP #### [facility] [address] [place] [address] Dr. Dwight Waters URINE MICROSCOPIC ONLYon BACTERIA TRACE Abnormal NONE SEEN [facility] Comment on above: Performed By: #### U RTPCR #### [facility] [address] [place] [address] Dr. Dwight Waters Bacteria identified Cx Nom (U) INDICATED Normal [facility] Comment on above: Performed By: #### U RTPCR #### [facility] [address] [place] [address] Dr. Dwight Waters CAST NONE SEEN Normal NONE SEEN [facility] Comment on above: Performed By: #### U RTPCR #### [facility] [address] [place] [address] Dr. Dwight Waters Crystals LM Nom (Urine sed) NONE SEEN Normal NONE SEEN [facility] Comment on above: Performed By: #### U RTPCR #### [facility] [address] [place] [address] Dr. Dwight Waters Epithelial cells LM Ql (Urine sed) NONE SEEN Normal NONE SEEN /RARE [facility] Comment on above: Performed By: #### U RTPCR #### [facility] [address] [place] [address] Dr. Dwight Waters MUCOUS NONE SEEN Normal NONE SEEN [facility] Comment on above: Performed By: #### U RTPCR #### [facility] [address] [place] [address] Dr. Dwight Waters RBC 5-10 Abnormal 0-2 [facility] Comment on above: Performed By: #### U RTPCR #### [facility] [address] [place], [place] [address] Dr. Dwight Waters WBC 10-20 Abnormal NONE SEEN [facility] Comment on above: Performed By: #### U RTPCR #### [facility] [address] [place], [place] [address] Dr. Dwight Waters ALLOSCREEN RECIPIENT (POST T X PRA)on 06-13-2022 AB SPECIFICITY CLASS COMMENT Antibody Specificity testing performed by [employer]. cPRA calculation based on identification of HLA antibody specificities at MFI >2000 and/or presence of CREG antibodies. [facility] Comment on above: Some of the reagents used for testing in the Clinical Histocompatibility Laboratory have yet to be approved by the FDA. Our certification by CLIA to perform high complexity tests allows us to use these reagents in the context of a stringent QC program, and obviates the need for FDA approval.Testing performed by the [facility] Clinical Histocompatibility Laboratory. [facility] number: [id number]. CLIA number: [id number], Director: Carlito Merchant, PhD, D([facility]). ANTIBODY SPECIFICITY INTERPRETATION Detected [facility] CLASS I SPECIFICITIES Not detected [facility] CLASS II SPECIFICITIES Not detected [facility] HLA Ab (S) 0 % 0 [facility] EXTRA MICROon 06-13-2022 [facility] URINE CULTUREOrdered By: Jah Upton on 06-13-2022 Bacteria identified Cx Nom (Unsp spec) Growth [facility] Bacteria identified Cx Nom (Unsp spec) 10,000-50,000 CFU/mL Mixed skin shimon [facility] Comment on above: Multiple bacterial m orphotypes present. Suggest appropriate recollection if clinically indicated. [facility] CBC,PLATELETSon 06-12-2022 Erythrocyte distribution width (RBC) [Ratio] 13.0 % 10.9 - 14.3 % [facility] Hematocrit (Bld) [Volume fraction] 43.2 % 39.6 - 48.8 % [facility] Hemoglobin (Bld) [Mass/Vol] 13.9 g/dL 13.4 - 16.8 g/dL [facility] Interpretation and review of laboratory results Normal [facility] MCH (RBC) [Entitic mass] 28.7 pg 26.1 - 33.3 pg [facility] MCHC (RBC) [Mass/Vol] 32.2 g/dL 31.9 - 36.5 g/dL [facility] MCV (RBC) [Entitic vol] 89.1 fL 79.0 - 94.5 fL [facility] Platelet mean volume (Bld) [Entitic vol] 10.5 fL 8.7 - 12.3 fL [facility] Platelets (Bld) [#/Vol] 269 10*3/uL 146 - 337 K/uL [facility] RBC (Bld) [#/Vol] 4.85 10*6/uL [facility] WBC (Bld) [#/Vol] 7.68 10*3/uL 3.73 - 10. 10 K/uL [facility] CHEM 7 (LYTES,BUN,CREA,GLUC) on 06-12-2022 Anion gap [Moles/Vol] 14 mmol/L 7 - 17 mmol/L [facility] Chloride [Moles/Vol] 106 mmol/L 98 - 10 8 mmol/L [facility] CO2 [Moles/Vol] 25 mmol/L 21 - 31 mmol/L [facility] Creatinine [Mass/Vol] 1.26 mg/dL 0.70 - 1.30 mg/dL [facility] GFR/1.73 sq M.predicted CKD-EPI (S/P/Bld) [Vol rate/Area] 69 >=60 mL/min/1.73m 2 [facility] Comment on above: Reported eGFR is bas ed on the CKD-EPI 2020 equation using creatinine, age, and sex. Glucose [Mass/Vol] 83 mg/dL 70 - 99 mg/dL [facility] Osmolality Calc [Osmolality] 295 [facility] Potassium [Moles/Vol] 3.8 mmol/L 3.5 - 5.0 mmol/L [facility] Sodium [Moles/Vol] 141 mmol/L 135 - 145 mmol/L [facility] Urea nitrogen [Mass/Vol] 18 mg/dL 7 - 25 mg/dL [facility] Urea nitrogen/Creatinine [Mass ratio] 14 mg/mg [facility] GGTon 06-12-2022 Gamma glutamyl transferase [Catalytic activity/Vol] 20 U/L 8 - 64 U/L [facility] HEMOGLOBIN [id number] By: [employer] on 06-12-2022 Average glucose Estimated from glycated hemoglobin (Bld) [Mass/Vol] 126 mg/dL [facility] HbA1c (Bld) [Mass fraction] 6.0 % High 4.7 - 5.6 % [facility] Interpretation and review of laboratory results Abnormal [facility] HEPATIC FUNCTION PANELon Albumin [Mass/Vol] 4.3 g/dL 3.5 - 5.0 g/dL [facility] ALP [Catalytic activity/Vol] 78 U/L 32 - 126 U/L [facility] ALT [Catalytic activity/Vol] 12 U/L 10 - 52 U/L [facility] AST [Catalytic activity/Vol] 16 U/L 10 - 39 U/L [facility] Bilirubin [Mass/Vol] 1.0 mg/dL <1.5 [facility] Bilirubin.direct [Mass/Vol] 0.2 mg/dL <0.3 [facility] Protein [Mass/Vol] 7.5 g/dL 6.4 - 8.3 g/dL [facility] No Panel Informationon 06-12 Interpretation and review of laboratory results Normal [facility] PTH INTACTOrdered By: Marli Lizarraga on 06-12-2022 Interpretation and review of laboratory results Abnormal [facility] Parathyrin.intact [Mass/Vol] 79.7 pg/mL High 14.0 - 72.0 pg[facility] REFLEX TO CULTURE PERFORMABLEon 06-12-2022 Appearance (U) Clear Clear [facility] Bacteria LM Ql (Urine sed) ABSENT ABSENT [facility] Color (U) Yellow Yellow [facility] Epithelial cells.squamous LM Ql (Urine sed) 1/hpf = 1+ 1/hpf = 1+, 2-5/hpf = 2+, 0/hpf = 0+, [facility]ENT [facility] Glucose Test strip (U) [Mass/Vol] Negative Negative [facility] Interpretation and review of laboratory results Abnormal [facility] Ketones (U) [Mass/Vol] Trace Abnormal Negative [facility] Leukocyte esterase Test strip Ql (U) Small Abnormal Negative [facility] Nitrite Ql (U) Negative Negative [facility] pH (U) 5.5 [pH] 5.0 - 7.0 [facility] Protein (U) [Mass/Vol] 30 mg/dL Abnormal Negative [facility] RBC (U) [#/Vol] Trace Abnormal Negative [facility] RBC LM.HPF (Urine sed) [#/Area] 0-2 0 - 2 /HPF [facility] Specific gravity (U) [Rel density] 1.026 [facility] Urobilinogen (U) [Mass/Vol] 0.2 E.U./dL 0.2 E.U/dL, 1.0 E.U/dL [facility] WBC LM.HPF (Urine sed) [#/Area] 10-20 Abnormal 0 - 5 /HPF [facility] URINE PROTEIN/CREA RATIO, RA NDOMon 06-12-2022 Creatinine (24H U) [Mass/Vol] 231.68 mg/dL [facility] Protein Unsp time (U) [Mass/Vol] 49 mg/dL [facility] Protein/Creatinine (U) [Mass ratio] 0.211 mg/g [facility] (TACR[facility]IMUS) WHOLE BLO ODon 06-09-2022 Tacrolimus (FK506), Blood 9.8 ng/mL Normal 2.0-20.0 [facility] Comment on above: Result Comment: Trou gh (immediately following transplant) 15.0 . Trough (steady state, 2 weeks or more after transplant): 3.0 - 8.0 . Performed by LC-MS/MS technology. Performed By: #### U RTPCR #### [facility] [address] [place] [address] Dr. Dwight Waters ALBUMINon 06-06-2022 Albumin [Mass/Vol] 3.8 g/dL Normal 3.4-5.0 [facility] Comment on above: Performed By: #### C MP #### [facility] [address] [place] [address] Dr. Dwight Waters ALKALINE PHOSPHAon ALP [Catalytic activity/Vol] 82 U/L Normal 46-116 [facility] Comment on above: Performed By: #### C MP #### [facility] [address] [place] [address] Dr. Dwight Waters BILIRUBIN CONJUGATED (DIRECT )on 06-06-2022 BILI, CONJUGATED 0.2 mg/dL Normal 0.0-0.2 [facility] Comment on above: Performed By: #### C BC #### [facility] [address] [place] [address] Dr. Dwight Waters BILIRUBIN TOTALon 06-06-2022 Bilirubin [Mass/Vol] 1.0 mg/dL Normal 0.2-1.0 [facility] Comment on above: Performed By: #### C BC #### [facility] [address] [place] [address] Dr. Dwight Waters BUNon 06-06-2022 Urea nitrogen [Mass/Vol] 18.0 mg/dL Normal 7.0-18.0 [facility] Comment on above: Performed By: #### C BC #### [facility] [address] [place] [address] Dr. Dwight Waters CALCIUMon 06-06-2022 Calcium [Mass/Vol] 9.4 mg/dL Normal 8.5-10.1 [facility] Comment on above: Performed By: #### C MP #### [facility] [address] [place] [address] Dr. Dwight Waters CBC AUTO DIFFon 06-06-2022 BASO # 0.1 103/ul Normal 0.0-0.1 [facility] Comment on above: Performed By: #### U RTPCR #### [facility] [address] [place] [address] Dr. Dwight Waters Basophils/100 WBC (Bld) 0.8 % Normal 0.2-2.0 [facility] Comment on above: Performed By: #### U RTPCR #### [facility] [address] [place] [address] Dr. Dwight Waters EO # 0.3 103/ul Normal 0.0-0.7 [facility] Comment on above: Performed By: #### U RTPCR #### [facility] [address] [place] [address] Dr. Dwight Waters Eosinophils/100 WBC (Bld) 3.3 % Normal 0.9-7.0 [facility] Comment on above: Performed By: #### U RTPCR #### [facility] [address] [place] [address] Dr. Dwight Waters Erythrocyte distribution width (RBC) [Ratio] 12.4 % Normal 11.0-15.0 [facility] Comment on above: Performed By: #### U RTPCR #### [facility] [address] [place] [address] Dr. Dwight Waters Hematocrit (Bld) [Volume fraction] 45.1 % Normal 42.0-54.0 [facility] Comment on above: Performed By: #### U RTPCR #### [facility] [address] [place] [address] Dr. Dwight Waters Hemoglobin (Bld) [Mass/Vol] 14.4 g/dL Normal 14.0-18.0 [facility] Comment on above: Performed By: #### U RTPCR #### [facility] [address] [place] [address] Dr. Dwight Waters IG # 0.01 10e3/ul Normal 0.00-0.03 [facility] Comment on above: Performed By: #### U RTPCR #### [facility] [address] [place] [address] Dr. Dwight Waters IG % 0.1 % Normal 0.0-0.5 [facility] Comment on above: Performed By: #### U RTPCR #### [facility] [address] [place] [address] Dr. Dwight Waters LYMPH # 2.2 103/ul Normal 1.2-3.8 [facility] Comment on above: Performed By: #### U RTPCR #### [facility] [address] [place] [address] Dr. Dwight Waters Lymphocytes/100 WBC (Bld) 30.0 % Normal 20.5-60.0 [facility] Comment on above: Performed By: #### U RTPCR #### [facility] [address] [place] [address] Dr. Dwight Waters MANUAL DIFF REQ NO Normal [facility] Comment on above: Performed By: #### U RTPCR #### [facility] [address] [place] [address] Dr. Dwight Waters MCH (RBC) [Entitic mass] 28.2 pg Normal 25.9-34.0 [facility] Comment on above: Performed By: #### U RTPCR #### [facility] [address] [place] [address] Dr. Dwight Waters MCHC (RBC) [Mass/Vol] 31.9 g/dL Normal 29.9-35.2 [facility] Comment on above: Performed By: #### U RTPCR #### [facility] [address] [place] [address] Dr. Dwight Waters MCV (RBC) [Entitic vol] 88.3 fL Normal 80.0-94.0 [facility] Comment on above: Performed By: #### U RTPCR #### [facility] [address] [place] [address] Dr. Dwight Waters MONO # 0.6 103/ul Normal 0.3-0.8 [facility] Comment on above: Performed By: #### U RTPCR #### [facility] [address] [place] [address] Dr. Dwight Waters Monocytes/100 WBC (Bld) 8.2 % Normal 1.7-12.0 [facility] Comment on above: Performed By: #### U RTPCR #### [facility] [address] [place] [address] Dr. Dwight Waters NEUT # 4.3 103/ul Normal 1.4-6.5 [facility] Comment on above: Performed By: #### U RTPCR #### [facility] [address] [place] [address] Dr. Dwight Waters Neutrophils/100 WBC (Bld) 57.6 % Normal 43.0-75.0 [facility] Comment on above: Performed By: #### U RTPCR #### [facility] [address] [place] [address] Dr. Dwight Waters Platelet mean volume (Bld) [Entitic vol] 9.7 fL Normal 9.5-13.5 [facility] Comment on above: Performed By: #### U RTPCR #### [facility] [address] [place] [address] Dr. Dwight Waters PLT 297 103/ul Normal 150-450 [facility] Comment on above: Performed By: #### U RTPCR #### [facility] [address] [place] [address] Dr. Dwight Waters RBC 5.11 106/ul Normal 4.70-6.10 [facility] Comment on above: Performed By: #### U RTPCR #### [facility] [address] [place] [address] Dr. Dwight Waters WBC 7.5 103/ul Normal 4.0-11.0 [facility] Comment on above: Performed By: #### U RTPCR #### [facility] [address] [place] [address] Dr. Dwight Waters CHLORIDEon 06-06-2022 Chloride [Moles/Vol] 107 mmol/L Normal 98-107 [facility] Comment on above: Performed By: #### C BC #### [facility] [address] [place] [address] Dr. Dwight Waters CO2on 06-06-2022 CO2 [Moles/Vol] 27.4 mmol/L Normal 21.0-32.0 [facility] Comment on above: Performed By: #### C BC #### [facility] [address] [place] [address] Dr. Dwight Waters CREATININEon 06-06-2022 Creatinine [Mass/Vol] 1.20 mg/dL Normal 0.70-1.30 [facility] Comment on above: Performed By: #### C BC #### [facility] [address] [place] [address] Dr. Dwight Waters EGFR-AF SAUDI ARABIAN >60 Normal >=60 [facility] Comment on above: Performed By: #### C BC #### [facility] [address] [place] [address] Dr. Dwight Waters EGFR-NON AF SAUDI ARABIAN >60 Normal >=60 [facility] Comment on above: Performed By: #### C BC #### [facility] [address] [place] [address] Dr. Dwight Waters GGTon 06-06-2022 Gamma glutamyl transferase [Catalytic activity/Vol] 29 U/L Normal 15-85 [facility] Comment on above: Performed By: #### C BC #### [facility] [address] [place] [address] Dr. Dwight Waters GLUCOSE BLOODon 06-06-2022 Glucose [Mass/Vol] 112 mg/dL Critically high 74-106 [facility] Comment on above: Performed By: #### C BC #### [facility] [address] [place] [address] Dr. Dwight Waters MAGNESIUMon 06-06-2022 Magnesium [Mass/Vol] 1.3 mg/dL Critically low 1.8-2.4 [facility] Comment on above: Performed By: #### C MP #### [facility] [address] [place] [address] Dr. Dwight Waters NAon 06-06-2022 Sodium [Moles/Vol] 141 mmol/L Normal 136-145 [facility] Comment on above: Performed By: #### C MP #### [facility] [address] [place] [address] Dr. Dwight Waters PHOSPHORUSon 06-06-2022 Phosphate [Mass/Vol] 3.1 mg/dL Normal 2.6-4.7 [facility] Comment on above: Performed By: #### C MP #### [facility] [address] [place] [address] Dr. Dwight Waters POTASSIUMon 06-06-2022 Potassium [Moles/Vol] 4.3 mmol/L Normal 3.5-5.1 [facility] Comment on above: Performed By: #### C BC #### [facility] [address] [place] [address] Dr. Dwight OLVERAOTon 06-06-2022 AST [Catalytic activity/Vol] 16 U/L Normal 15-37 [facility] Comment on above: Performed By: #### C BC #### [facility] [address] [place] [address] Dr. Dwight Waters SGPTon 06-06-2022 ALT [Catalytic activity/Vol] 50 U/L Normal 16-63 [facility] Comment on above: Performed By: #### C BC #### [facility] [address] [place] [address] Dr. Dwight Waters Bacteria identified Cx Nom ( Bld)on 05-21-2022 Bacteria identified Cx Nom (Unsp spec) NO GROWTH DAY 5 OF 5 [facility] Results may be compr omised due to volume of BACT\ALERT bottle exceeding 10mLs . The optimal blood volume is 8-10 mls per aerobic/anaerobic blood culture bottle. [facility] CALCIUMon 05-20-2022 Calcium [Mass/Vol] 9.1 mg/dL 8.6 - 10. 5 mg/dL [facility] CBC,PLATELETSon 05-20-2022 Erythrocyte distribution width (RBC) [Ratio] 12.5 % 10.9 - 14.3 % [facility] Hematocrit (Bld) [Volume fraction] 37.1 % Low 39.6 - 48.8 % [facility] Hemoglobin (Bld) [Mass/Vol] 12.3 g/dL Low 13.4 - 16.8 g/dL [facility] Interpretation and review of laboratory results Abnormal [facility] MCH (RBC) [Entitic mass] 28.9 pg 26.1 - 33.3 pg [facility] MCHC (RBC) [Mass/Vol] 33.2 g/dL 31.9 - 36.5 g/dL [facility] MCV (RBC) [Entitic vol] 87.3 fL 79.0 - 94.5 fL [facility] Platelet mean volume (Bld) [Entitic vol] 9.9 fL 8.7 - 12.3 fL [facility] Platelets (Bld) [#/Vol] 234 10*3/uL 146 - 337 K/uL [facility] RBC (Bld) [#/Vol] 4.25 10*6/uL Low [facility] WBC (Bld) [#/Vol] 6.31 10*3/uL 3.73 - 10. 10 K/uL [facility] CHEM 7 (LYTES,BUN,CREA,GLUC) on 05-20-2022 Anion gap [Moles/Vol] 15 mmol/L 7 - 17 mmol/L [facility] Chloride [Moles/Vol] 111 mmol/L High 98 - 10 8 mmol/L [facility] CO2 [Moles/Vol] 22 mmol/L 21 - 31 mmol/L [facility] Creatinine [Mass/Vol] 1.10 mg/dL 0.70 - 1.30 mg/dL [facility] GFR/1.73 sq M.predicted CKD-EPI (S/P/Bld) [Vol rate/Area] 81 >=60 mL/min/1.73m 2 [facility] Comment on above: Reported eGFR is bas ed on the CKD-EPI 2020 equation using creatinine, age, and sex. Glucose [Mass/Vol] 92 mg/dL 70 - 99 mg/dL [facility] Interpretation and review of laboratory results Abnormal [facility] Osmolality Calc [Osmolality] 302 [facility] Potassium [Moles/Vol] 4.4 mmol/L 3.5 - 5.0 mmol/L [facility] Sodium [Moles/Vol] 144 mmol/L 135 - 145 mmol/L [facility] Urea nitrogen [Mass/Vol] 18 mg/dL 7 - 25 mg/dL [facility] Urea nitrogen/Creatinine [Mass ratio] 16 mg/mg [facility] MAGNESIUMon 05-20-2022 Interpretation and review of laboratory results Abnormal [facility] Magnesium [Mass/Vol] 1.5 mg/dL Low 1.6 - 2 .6 mg/dL [facility] No Panel Informationon 05-20 Interpretation and review of laboratory results Normal [facility] PHOSPHATE, INORGANICon 05-20 Phosphate [Mass/Vol] 3.3 mg/dL 2.2 - 4 .6 mg/dL [facility] RF Unspecified body region V [...] projections of kidneys, ureters, and bladder. FINDINGS: Rescue Boat Operator images: Rescue Boat Operator radiographs of the abdomen reveal a [...] Contrast refluxes up the ureter to the [place] right kidney that is grossly normal appearing. [...] projections of kidneys, ureters, and bladder. FINDINGS: Rescue Boat Operator images: Rescue Boat Operator radiographs of the abdomen reveal a [...] Contrast refluxes up the ureter to the [place] right kidney that is grossly normal appearing. [...] I have reviewed and approved this report. [facility] Radiology Study observation (narrative) [facility] RF Unspecified body region V iews during surgeryOrdered By: Lizz Campos on 05-20-2022 [facility] Work Phone: CALCIUMon 05-19-2022 Calcium [Mass/Vol] 9.2 mg/dL 8.6 - 10. 5 [facility] Cal[facility] [Mass/Vol] 8.6 mg/dL 8.6 - 10. 5 mg/dL [facility] CBC,PLATELETSon 05-19-2022 Erythrocyte distribution width (RBC) [Ratio] 12.4 % 10.9 - 14.3 % [facility] Hematocrit (Bld) [Volume fraction] 38.0 % Low 39.6 - 48.8 % [facility] Hemoglobin (Bld) [Mass/Vol] 12.0 g/dL Low 13.4 - 16.8 g/dL [facility] Interpretation and review of laboratory results Abnormal [facility] MCH (RBC) [Entitic mass] 28.6 pg 26.1 - 33.3 pg [facility] MCHC (RBC) [Mass/Vol] 31.6 g/dL Low 31.9 - 36.5 g/dL [facility] MCV (RBC) [Entitic vol] 90.5 fL 79.0 - 94.5 fL [facility] Platelet mean volume (Bld) [Entitic vol] 9.7 fL 8.7 - 12.3 fL [facility] Platelets (Bld) [#/Vol] 199 10*3/uL 146 - 337 K/uL [facility] RBC (Bld) [#/Vol] 4.20 10*6/uL Low [facility] WBC (Bld) [#/Vol] 6.81 10*3/uL 3.73 - 10. 10 K/uL [facility] CHEM 7 (LYTES,BUN,CREA,GLUC) on 05-19-2022 Anion gap [Moles/Vol] 13 mmol/L 7 - 17 mmol/L [facility] Chloride [Moles/Vol] 105 mmol/L 98 - 10 8 mmol/L [facility] CO2 [Moles/Vol] 30 mmol/L 21 - 31 mmol/L [facility] Creatinine [Mass/Vol] 1.39 mg/dL High 0.70 - 1.30 mg/dL [facility] GFR/1.73 sq M.predicted CKD-EPI (S/P/Bld) [Vol rate/Area] 61 >=60 mL/min/1.73m 2 [facility] Comment on above: Reported eGFR is bas ed on the CKD-EPI 2020 equation using creatinine, age, and sex. Glucose [Mass/Vol] 121 mg/dL High 70 - 99 mg/dL [facility] Interpretation and review of laboratory results Abnormal [facility] Osmolality Calc [Osmolality] 303 [facility] Potassium [Moles/Vol] 3.8 mmol/L 3.5 - 5.0 mmol/L [facility] Sodium [Moles/Vol] 144 mmol/L 135 - 145 mmol/L [facility] Urea nitrogen [Mass/Vol] 18 mg/dL 7 - 25 mg/dL [facility] Urea nitrogen/Creatinine [Mass ratio] 13 mg/mg [facility] Anion gap [Moles/Vol] 15 mmol/L 7 - 17 mmol/L [facility] Chloride [Moles/Vol] 106 mmol/L 98 - 10 8 mmol/L [facility] CO2 [Moles/Vol] 24 mmol/L 21 - 31 mmol/L [facility] Creatinine [Mass/Vol] 1.46 mg/dL High 0.70 - 1.30 mg/dL [facility] GFR/1.73 sq M.predicted CKD-EPI (S/P/Bld) [Vol rate/Area] 58 Low >=60 mL/min/1.73m 2 [facility] Comment on above: Reported eGFR is bas ed on the CKD-EPI 2020 equation using creatinine, age, and sex. Glucose [Mass/Vol] 103 mg/dL High 70 - 99 mg/dL [facility] Interpretation and review of laboratory results Abnormal [facility] Osmolality Calc [Osmolality] 298 [facility] Potassium [Moles/Vol] 3.9 mmol/L 3.5 - 5.0 mmol/L [facility] Sodium [Moles/Vol] 141 mmol/L 135 - 145 mmol/L [facility] Urea nitrogen [Mass/Vol] 21 mg/dL 7 - 25 mg/dL [facility] Urea nitrogen/Creatinine [Mass ratio] 14 mg/mg [facility] MAGNESIUMon 05-19-2022 Magnesium [Mass/Vol] 2.0 mg/dL 1.6 - 2 .6 mg/dL [facility] Magnesium [Mass/Vol] 1.7 mg/dL 1.6 - 2 .6 mg/dL [facility] No Panel Informationon 05-19 Interpretation and review of laboratory results Normal [facility] Interpretation and review of laboratory results Normal [facility] PHOSPHATE, INORGANICon 05-19 Phosphate [Mass/Vol] 3.0 mg/dL 2.2 - 4 .6 mg/dL [facility] Phosphate [Mass/Vol] 2.7 mg/dL 2.2 - 4 .6 mg/dL [facility] CALCIUMon 05-18-2022 Calcium [Mass/Vol] 9.1 mg/dL 8.6 - 10. 5 mg/dL [facility] CBC,PLATELETSon 05-18-2022 Erythrocyte distribution width (RBC) [Ratio] 12.5 % 10.9 - 14.3 % [facility] Hematocrit (Bld) [Volume fraction] 37.3 % Low 39.6 - 48.8 % [facility] Hemoglobin (Bld) [Mass/Vol] 11.9 g/dL Low 13.4 - 16.8 g/dL [facility] Interpretation and review of laboratory results Abnormal [facility] MCH (RBC) [Entitic mass] 28.9 pg 26.1 - 33.3 pg [facility] MCHC (RBC) [Mass/Vol] 31.9 g/dL 31.9 - 36.5 g/dL [facility] MCV (RBC) [Entitic vol] 90.5 fL 79.0 - 94.5 fL [facility] Platelet mean volume (Bld) [Entitic vol] 10.1 fL 8.7 - 12.3 fL [facility] Platelets (Bld) [#/Vol] 189 10*3/uL 146 - 337 K/uL [facility] RBC (Bld) [#/Vol] 4.12 10*6/uL Low [facility] WBC (Bld) [#/Vol] 10.19 10*3/uL High 3.73 - 10 .10 K/uL [facility] CHEM 7 (LYTES,BUN,CREA,GLUC) on 05-18-2022 Anion gap [Moles/Vol] 13 mmol/L 7 - 17 mmol/L [facility] Chloride [Moles/Vol] 102 mmol/L 98 - 10 8 mmol/L [facility] CO2 [Moles/Vol] 26 mmol/L 21 - 31 mmol/L [facility] Creatinine [Mass/Vol] 1.91 mg/dL High 0.70 - 1.30 mg/dL [facility] GFR/1.73 sq M.predicted CKD-EPI (S/P/Bld) [Vol rate/Area] 42 Low >=60 mL/min/1.73m 2 [facility] Comment on above: Reported eGFR is bas ed on the CKD-EPI 2020 equation using creatinine, age, and sex. Glucose [Mass/Vol] 158 mg/dL High 70 - 99 mg/dL [facility] Osmolality Calc [Osmolality] [facility] Potassium [Moles/Vol] 4.0 mmol/L 3.5 - 5.0 mmol/L [facility] Sodium [Moles/Vol] 137 mmol/L 135 - 145 mmol/L [facility] Urea nitrogen [Mass/Vol] 30 mg/dL High 7 - 25 mg/dL [facility] Urea nitrogen/Creatinine [Mass ratio] 16 mg/mg [facility] CHEM 7 (LYTES,BUN,CREA,GLUC) Ordered By: Tamiko Thapa on 05-18-2022 Anion gap [Moles/Vol] 13 mmol/L 7 - 17 mmol/L [facility] Chloride [Moles/Vol] 104 mmol/L 98 - 10 8 mmol/L [facility] CO2 [Moles/Vol] 26 mmol/L 21 - 31 mmol/L [facility] Creatinine [Mass/Vol] 2.96 mg/dL High 0.70 - 1.30 mg/dL [facility] GFR/1.73 sq M.predicted CKD-EPI (S/P/Bld) [Vol rate/Area] 25 Low >=60 mL/min/1.73m 2 [facility] Comment on above: Reported eGFR is bas ed on the CKD-EPI 2020 equation using creatinine, age, and sex. Glucose [Mass/Vol] 136 mg/dL High 70 - 99 mg/dL [facility] Interpretation and review of laboratory results Abnormal [facility] Osmolality Calc [Osmolality] 304 [facility] Potassium [Moles/Vol] 4.2 mmol/L 3.5 - 5.0 mmol/L [facility] Sodium [Moles/Vol] 139 mmol/L 135 - 145 mmol/L [facility] Urea nitrogen [Mass/Vol] 41 mg/dL High 7 - 25 mg/dL [facility] Urea nitrogen/Creatinine [Mass ratio] 14 mg/mg [facility] MAGNESIUMon 05-18-2022 Magnesium [Mass/Vol] 2.2 mg/dL 1.6 - 2 .6 mg/dL [facility] Interpretation and review of laboratory results Normal [facility] Magnesium [Mass/Vol] 1.7 mg/dL 1.6 - 2 .6 mg/dL [facility] No Panel Informationon 05-18 Interpretation and review of laboratory results Abnormal [facility] Interpretation and review of laboratory results Normal [facility] PHOSPHATE, INORGANICon 05-18 Phosphate [Mass/Vol] 2.0 mg/dL Low 2.2 - 4 .6 mg/dL [facility] Interpretation and review of laboratory results Normal [facility] Phosphate [Mass/Vol] 2.8 mg/dL 2.2 - 4 .6 mg/dL [facility] PT,INR,PTTon 05-18-2022 aPTT Coag (PPP) [Time] 31.0 s [facility] INR Coag (Bld) [Relative time] 1.1 {INR} [facility] Interpretation and review of laboratory results Abnormal [facility] PT Coag (PPP) [Time] 14.4 s High [facility] URINE CULTUREOrdered By: Sylvia Campos on 05-18-2022 Bacteria identified Cx Nom (Unsp spec) No Growth [facility] CBC,PLATELETSon 05-17-2022 Erythrocyte distribution width (RBC) [Ratio] 12.8 % 10.9 - 14.3 % [facility] Hematocrit (Bld) [Volume fraction] 42.8 % 39.6 - 48.8 % [facility] Hemoglobin (Bld) [Mass/Vol] 13.3 g/dL Low 13.4 - 16.8 g/dL [facility] Interpretation and review of laboratory results Abnormal [facility] MCH (RBC) [Entitic mass] 28.9 pg 26.1 - 33.3 pg [facility] MCHC (RBC) [Mass/Vol] 31.1 g/dL Low 31.9 - 36.5 g/dL [facility] MCV (RBC) [Entitic vol] 92.8 fL 79.0 - 94.5 fL [facility] Platelet mean volume (Bld) [Entitic vol] 10.3 fL 8.7 - 12.3 fL [facility] Platelets (Bld) [#/Vol] 188 10*3/uL 146 - 337 K/uL [facility] RBC (Bld) [#/Vol] 4.61 10*6/uL [facility] WBC (Bld) [#/Vol] 16.61 10*3/uL High 3.73 - 10 .10 K/uL [facility] CHEM 7 (LYTES,BUN,CREA,GLUC) Ordered By: Kaylah Mc on 05-17-2022 Anion gap [Moles/Vol] 15 mmol/L 7 - 17 mmol/L [facility] Chloride [Moles/Vol] 103 mmol/L 98 - 10 8 mmol/L [facility] CO2 [Moles/Vol] 23 mmol/L 21 - 31 mmol/L [facility] Creatinine [Mass/Vol] 5.95 mg/dL High 0.70 - 1.30 mg/dL [facility] GFR/1.73 sq M.predicted CKD-EPI (S/P/Bld) [Vol rate/Area] 11 Low >=60 mL/min/1.73m 2 [facility] Comment on above: Reported eGFR is bas ed on the CKD-EPI 2020 equation using creatinine, age, and sex. Glucose [Mass/Vol] 165 mg/dL High 70 - 99 mg/dL [facility] Interpretation and review of laboratory results Abnormal [facility] Osmolality Calc [Osmolality] 305 [facility] Potassium [Moles/Vol] 4.6 mmol/L 3.5 - 5.0 mmol/L [facility] Sodium [Moles/Vol] 136 mmol/L 135 - 145 mmol/L [facility] Urea nitrogen [Mass/Vol] 52 mg/dL High 7 - 25 mg/dL [facility] Urea nitrogen/Creatinine [Mass ratio] 9 mg/mg [facility] CHEM 7 (LYTES,BUN,CREA,GLUC) Ordered By: Kehinde Olsen on 05-17-2022 Anion gap [Moles/Vol] 24 mmol/L High 7 - 17 mmol/L [facility] Chloride [Moles/Vol] 100 mmol/L 98 - 10 8 mmol/L [facility] CO2 [Moles/Vol] 16 mmol/L Low 21 - 31 mmol/L [facility] Creatinine [Mass/Vol] 8.08 mg/dL High 0.70 - 1.30 mg/dL [facility] GFR/1.73 sq M.predicted CKD-EPI (S/P/Bld) [Vol rate/Area] 7 Low >=60 mL/min/1.73m 2 [facility] Comment on above: Reported eGFR is bas ed on the CKD-EPI 2020 equation using creatinine, age, and sex. Glucose [Mass/Vol] 164 mg/dL High 70 - 99 mg/dL [facility] Interpretation and review of laboratory results Abnormal [facility] Osmolality Calc [Osmolality] 305 [facility] Potassium [Moles/Vol] 5.0 mmol/L 3.5 - 5.0 mmol/L [facility] Sodium [Moles/Vol] 135 mmol/L 135 - 145 mmol/L [facility] Urea nitrogen [Mass/Vol] 56 mg/dL High 7 - 25 mg/dL [facility] Urea nitrogen/Creatinine [Mass ratio] 7 mg/mg [facility] LAVENDER TOP TUBEon 05-17-20 [facility] MAGNESIUMon 05-17-2022 Interpretation and review of laboratory results Normal [facility] Magnesium [Mass/Vol] 1.8 mg/dL 1.6 - 2 .6 mg/dL [facility] Interpretation and review of laboratory results Normal [facility] Magnesium [Mass/Vol] 1.6 mg/dL 1.6 - 2 .6 mg/dL [facility] No Panel Informationon 05-17 [facility] PHOSPHATE, INORGANICon 05-17 Interpretation and review of laboratory results Abnormal [facility] Phosphate [Mass/Vol] 4.9 mg/dL High 2.2 - 4 .6 mg/dL [facility] PT,INR,PTTon 05-17-2022 aPTT Coag (PPP) [Time] 33.0 s [facility] INR Coag (Bld) [Relative time] 1.3 {INR} High [facility] Interpretation and review of laboratory results Abnormal [facility] PT Coag (PPP) [Time] 15.7 s High [facility] Portable XR Chest Viewson IMPRESSION: [...] Stable cardiomegaly. IMPRESSION IMPRESSION: No acute findings. [facility] Radiology Study observation (narrative) [facility] Portable XR Chest ViewsOrder ed By: David Sanz on 05-17-2022 [facility] Work Phone: URINALYSISOrdered By: Michael patel Ma on 05-17-2022 Appearance (U) Cloudy Abnormal Clear [facility] Comment on above: Results may be inacc urate due to color interference. Clinical correlation recommended. Bacteria LM Ql (Urine sed) ABSENT ABSENT [facility] Color (U) Red Abnormal Yellow [facility] Comment on above: Results may be inacc urate due to color interference. Clinical correlation recommended. Epithelial cells.squamous LM Ql (Urine sed) ABSENT 1/hpf = 1+, 2-5/hpf = 2+, 0/hpf = 0+, ABSENT [facility] Glucose Test strip (U) [Mass/Vol] Negative Negative [facility] Comment on above: Results may be inacc urate due to color interference. Clinical correlation recommended. Interpretation and review of laboratory results Abnormal [facility] Ketones (U) [Mass/Vol] Trace Abnormal Negative [facility] Comment on above: Results may be inacc urate due to color interference. Clinical correlation recommended. Leukocyte esterase Test strip Ql (U) Large Abnormal Negative [facility] Comment on above: Results may be inacc urate due to color interference. Clinical correlation recommended. Nitrite Ql (U) Negative Negative [facility] Comment on above: Results may be inacc urate due to color interference. Clinical correlation recommended. pH (U) 5.0 [pH] 5.0 - 7.0 [facility] Comment on above: Results may be inacc urate due to color interference. Clinical correlation recommended. Protein (U) [Mass/Vol] mg/dL Abnormal Negative [facility] Comment on above: Results may be inacc urate due to color interference. Clinical correlation recommended. RBC (U) [#/Vol] Large Abnormal Negative [facility] Comment on above: Results may be inacc urate due to color interference. Clinical correlation recommended. RBC LM.HPF (Urine sed) [#/Area] /[HPF] Abnormal 0 - 2 /HPF [facility] Specific gravity (U) [Rel density] 1.016 [facility] Comment on above: Results may be inacc urate due to color interference. Clinical correlation recommended. Urobilinogen (U) [Mass/Vol] 0.2 E.U./dL 0.2 E.U/dL, 1.0 E.U/dL [facility] Comment on above: Results may be inacc urate due to color interference. Clinical correlation recommended. WBC LM.HPF (Urine sed) [#/Area] /[HPF] Abnormal 0 - 5 /HPF [facility] URINE CULTUREOrdered By: Tyler Tiwari on 05-17-2022 Bacteria identified Cx Nom (Unsp spec) No Growth [facility] CBC,PLATELETSon 05-16-2022 Erythrocyte distribution width (RBC) [Ratio] 12.9 % 10.9 - 14.3 % [facility] Hematocrit (Bld) [Volume fraction] 46.5 % 39.6 - 48.8 % [facility] Hemoglobin (Bld) [Mass/Vol] 14.7 g/dL 13.4 - 16.8 g/dL [facility] Interpretation and review of laboratory results Abnormal [facility] MCH (RBC) [Entitic mass] 28.3 pg 26.1 - 33.3 pg [facility] MCHC (RBC) [Mass/Vol] 31.6 g/dL Low 31.9 - 36.5 g/dL [facility] MCV (RBC) [Entitic vol] 89.6 fL 79.0 - 94.5 fL [facility] Platelet mean volume (Bld) [Entitic vol] 10.3 fL 8.7 - 12.3 fL [facility] Platelets (Bld) [#/Vol] 188 10*3/uL 146 - 337 K/uL [facility] RBC (Bld) [#/Vol] 5.19 10*6/uL [facility] WBC (Bld) [#/Vol] 12.55 10*3/uL High 3.73 - 10 .10 K/uL [facility] CHEM 7 (LYTES,BUN,CREA,GLUC) Ordered By: Alma Pena on 05-16-2022 Anion gap [Moles/Vol] 14 mmol/L 7 - 17 mmol/L [facility] Chloride [Moles/Vol] 103 mmol/L 98 - 10 8 mmol/L [facility] CO2 [Moles/Vol] 22 mmol/L 21 - 31 mmol/L [facility] Creatinine [Mass/Vol] 6.09 mg/dL High 0.70 - 1.30 mg/dL [facility] GFR/1.73 sq M.predicted CKD-EPI (S/P/Bld) [Vol rate/Area] 10 Low >=60 mL/min/1.73m 2 [facility] Comment on above: Reported eGFR is bas ed on the CKD-EPI 2020 equation using creatinine, age, and sex. Glucose [Mass/Vol] 134 mg/dL High 70 - 99 mg/dL [facility] Interpretation and review of laboratory results Abnormal [facility] Osmolality Calc [Osmolality] 298 [facility] Potassium [Moles/Vol] 4.9 mmol/L 3.5 - 5.0 mmol/L [facility] Sodium [Moles/Vol] 134 mmol/L Low 135 - 145 mmol/L [facility] Comment on above: Results inconsistent with previous results Urea nitrogen [Mass/Vol] 49 mg/dL High 7 - 25 mg/dL [facility] Urea nitrogen/Creatinine [Mass ratio] 8 mg/mg [facility] CHEM 7 (LYTES,BUN,CREA,GLUC) on 05-16-2022 Anion gap [Moles/Vol] 17 mmol/L 7 - 17 mmol/L [facility] Chloride [Moles/Vol] 106 mmol/L 98 - 10 8 mmol/L [facility] CO2 [Moles/Vol] 22 mmol/L 21 - 31 mmol/L [facility] Creatinine [Mass/Vol] 5.23 mg/dL High 0.70 - 1.30 mg/dL [facility] GFR/1.73 sq M.predicted CKD-EPI (S/P/Bld) [Vol rate/Area] 13 Low >=60 mL/min/1.73m 2 [facility] Comment on above: Reported eGFR is bas ed on the CKD-EPI 2021 equation using creatinine, age, and sex. Glucose [Mass/Vol] 116 mg/dL High 70 - 99 mg/dL [facility] Interpretation and review of laboratory results Abnormal [facility] Osmolality Calc [Osmolality] 305 [facility] Potassium [Moles/Vol] 4.6 mmol/L 3.5 - 5.0 mmol/L [facility] Sodium [Moles/Vol] 140 mmol/L 135 - 145 mmol/L [facility] Urea nitrogen [Mass/Vol] 42 mg/dL High 7 - 25 mg/dL [facility] Urea nitrogen/Creatinine [Mass ratio] 8 mg/mg [facility] EXTRA MICROon 05-16-2022 [facility] LT BLUE TOP TUBEon 2 [facility] LYTES (NA, K, CL) - URINE - RANDOMon 05-16-2022 Chloride (24H U) [Moles/Vol] 68 mmol/L [facility] Potassium (24H U) [Moles/Vol] 36.7 mmol/L [facility] Sodium (24H U) [Moles/Vol] 55 mmol/L [facility] The reference range has not been established for random urine specimens. The test result should be integrated into the clinical context for interpretation. [facility] MAGNESIUMon 05-16-2022 Interpretation and review of laboratory results Normal [facility] Magnesium [Mass/Vol] 1.7 mg/dL 1.6 - 2 .6 mg/dL [facility] NOVEL CORONAVIRUS PCROrdered By: Edson Candelario on 05-16-2022 SARS-CoV-2 (COVID-19) RNA ESTELITA+probe Ql (Unsp spec) Not detected NOT DETECTED [facility] Comment on above: [facility] Negative results do [...] use authorization for use by authorized laboratories. [facility] No Panel Informationon 05-16 [facility] OSMOLALITY, URINEon 05-16-20 Interpretation and review of laboratory results Normal [facility] Osmolality (U) [Osmolality] 320 mosm/kg [facility] The reference range has not been established for random urine specimens. The test result should be integrated into the clinical context for interpretation. [facility] PROCALCITONINon 05-16-2022 Interpretation and review of laboratory results Normal [facility] Procalcitonin [Mass/Vol] 0.18 ng/mL <0.50 [facility] Comment on above: Procalcitonin is [...] and trend procalcitonin in various clinical settings. [email or web address] Two common cutoffs associated with bacterial infections are as follows. Respiratory tract infections: >0.25 ng/mL Sepsis/septic shock: >0.5 ng/mL Procalcitonin should not be used alone as a diagnostic tool, however. All procalcitonin results should be interpreted in association with the patients clinical condition and all laboratory findings. [facility] PT,INR,PTTon 05-16-2022 aPTT Coag (PPP) [Time] 30.3 s [facility] INR Coag (Bld) [Relative time] 1.1 {INR} [facility] Interpretation and review of laboratory results Normal [facility] PT Coag (PPP) [Time] 14.1 s [facility] [facility] SARS-CoV-2 (COVID-19) RNA NA A+probe Ql (Unsp spec)Ordered By: Edson Candelario on 05-16-2022 Interpretation and review of laboratory results Normal [facility] TACROLIMUS LEVEL, TROUGH (UT E DRUG LEVEL)Ordered By: Mariama Nick on 05-16-2022 Interpretation and review of laboratory results Normal [facility] Tacrolimus (Bld) [Mass/Vol] 4.1 ng/mL Bone Marrow Transplant: 4.0-12.0, Therapeutic: 5.0-15.0 [facility] Method performed is a chemiluminescent microparticle immunoasssay on the [employer] i2000. The range is based on experience at [facility] and users should be aware that target concentrations vary widely depending on concomitant therapy, time post-transplant, and desired degree of immunosuppression. [facility] URINE PROTEIN/CREA RATIO, RA NDOMon 05-16-2022 Creatinine (24H U) [Mass/Vol] 59.82 mg/dL [facility] Protein Unsp time (U) [Mass/Vol] 111 mg/dL [facility] Protein/Creatinine (U) [Mass ratio] 1.856 mg/g [facility] US for transplanted kidney l [...] appearing vascular flow in the transplant kidney. [facility] Radiology Study observation (narrative) [facility] US for transplanted kidney l imitedOrdered By: Rosendo Matute on 05-16-2022 [facility] Work Phone: CBC AND ELECTRONIC DIFFon Basophils (Bld) [#/Vol] 10*3/uL 0.00 - 0.09 K/uL [facility] Basophils/100 WBC (Bld) 0.2 % [facility] Differential cell count method Nom (Bld) Electronic Differential [facility] Eosinophils (Bld) [#/Vol] 10*3/uL 0.00 - 0.48 K/uL [facility] Eosinophils/100 WBC (Bld) 0.0 % [facility] Erythrocyte distribution width (RBC) [Ratio] 12.8 % 10.9 - 14.3 % [facility] Hematocrit (Bld) [Volume fraction] 46.0 % 39.6 - 48.8 % [facility] Hemoglobin (Bld) [Mass/Vol] 14.6 g/dL 13.4 - 16.8 g/dL [facility] Immature granulocytes (Bld) [#/Vol] 0.07 10*3/uL <=0.08 [facility] Immature granulocytes/100 WBC (Bld) 0.4 % [facility] Interpretation and review of laboratory results Abnormal [facility] Lymphocytes (Bld) [#/Vol] 1.49 10*3/uL 0.83 - 3.57 K/uL [facility] Lymphocytes/100 WBC (Bld) 9.4 % [facility] MCH (RBC) [Entitic mass] 28.2 pg 26.1 - 33.3 pg [facility] MCHC (RBC) [Mass/Vol] 31.7 g/dL Low 31.9 - 36.5 g/dL [facility] MCV (RBC) [Entitic vol] 89.0 fL 79.0 - 94.5 fL [facility] Monocytes (Bld) [#/Vol] 1.45 10*3/uL High 0.24 - 0.93 K/uL [facility] Monocytes/100 WBC (Bld) 9.2 % [facility] Neutrophils (Bld) [#/Vol] 12.77 10*3/uL High 1.57 - 6.19 K/uL [facility] Nucleated RBC/100 WBC (Bld) [Ratio] 0.0 % <=0.2 /100 WBC [facility] Platelet mean volume (Bld) [Entitic vol] 9.9 fL 8.7 - 12.3 fL [facility] Platelets (Bld) [#/Vol] 250 10*3/uL 146 - 337 K/uL [facility] RBC (Bld) [#/Vol] 5.17 10*6/uL [facility] Segmented neutrophils/100 WBC (Bld) 80.8 % [facility] WBC (Bld) [#/Vol] 15.81 10*3/uL High 3.73 - 10 .10 K/uL [facility] CBC AUTO DIFFon 05-15-2022 BASO # 0.0 103/ul Normal 0.0-0.1 [facility] Comment on above: Performed By: #### C BC #### [facility] [address] [place] [address] Dr. Dwight Waters Basophils/100 WBC (Bld) 0.3 % Normal 0.2-2.0 [facility] Comment on above: Performed By: #### C BC #### [facility] [address] [place] [address] Dr. Dwight Waters EO # 0.1 103/ul Normal 0.0-0.7 [facility] Comment on above: Performed By: #### C BC #### [facility] [address] [place] [address] Dr. Dwight Waters Eosinophils/100 WBC (Bld) 0.8 % Critically low 0.9-7.0 [facility] Comment on above: Performed By: #### C BC #### [facility] [address] [place] [address] Dr. Dwight Waters Erythrocyte distribution width (RBC) [Ratio] 12.7 % Normal 11.0-15.0 [facility] Comment on above: Performed By: #### C BC #### [facility] [address] [place] [address] Dr. Dwight Waters Hematocrit (Bld) [Volume fraction] 43.5 % Normal 42.0-54.0 [facility] Comment on above: Performed By: #### C BC #### [facility] [address] [place] [address] Dr. Dwight Waters Hemoglobin (Bld) [Mass/Vol] 14.4 g/dL Normal 14.0-18.0 [facility] Comment on above: Performed By: #### C BC #### [facility] [address] [place] [address] Dr. Dwight Waters IG # 0.02 10e3/ul Normal 0.00-0.03 [facility] Comment on above: Performed By: #### C BC #### [facility] [address] [place] [address] Dr. Dwight Waters IG % 0.2 % Normal 0.0-0.5 [facility] Comment on above: Performed By: #### C BC #### [facility] [address] [place] [address] Dr. Dwight Waters LYMPH # 1.5 103/ul Normal 1.2-3.8 [facility] Comment on above: Performed By: #### C BC #### [facility] [address] [place] [address] Dr. Dwight Waters Lymphocytes/100 WBC (Bld) 12.5 % Critically low 20.5-60.0 [facility] Comment on above: Performed By: #### C BC #### [facility] [address] [place] [address] Dr. Dwight Waters MANUAL DIFF REQ NO Normal [facility] Comment on above: Performed By: #### C BC #### [facility] [address] [place] [address] Dr. Dwight Waters MCH (RBC) [Entitic mass] 28.6 pg Normal 25.9-34.0 [facility] Comment on above: Performed By: #### C BC #### [facility] [address] [place] [address] Dr. Dwight Waters MCHC (RBC) [Mass/Vol] 33.1 g/dL Normal 29.9-35.2 [facility] Comment on above: Performed By: #### C BC #### [facility] [address] [place] [address] Dr. Dwight Waters MCV (RBC) [Entitic vol] 86.3 fL Normal 80.0-94.0 [facility] Comment on above: Performed By: #### C BC #### [facility] [address] [place] [address] Dr. Dwight Waters MONO # 1.0 103/ul Critically high 0.3-0.8 [facility] Comment on above: Performed By: #### C BC #### [facility] [address] [place] [address] Dr. Dwight Waters Monocytes/100 WBC (Bld) 8.2 % Normal 1.7-12.0 [facility] Comment on above: Performed By: #### C BC #### [facility] [address] [place] [address] Dr. Dwight Waters NEUT # 9.1 103/ul Critically high 1.4-6.5 [facility] Comment on above: Performed By: #### C BC #### [facility] [address] [place] [address] Dr. Dwight Waters Neutrophils/100 WBC (Bld) 78.0 % Critically high 43.0-75.0 [facility] Comment on above: Performed By: #### C BC #### [facility] [address] [place] [address] Dr. Dwight Waters Platelet mean volume (Bld) [Entitic vol] 9.8 fL Normal 9.5-13.5 [facility] Comment on above: Performed By: #### C BC #### [facility] [address] [place] [address] Dr. Dwight Waters PLT 251 103/ul Normal 150-450 [facility] Comment on above: Performed By: #### C BC #### [facility] [address] [place] [address] Dr. Dwight Waters RBC 5.04 106/ul Normal 4.70-6.10 [facility] Comment on above: Performed By: #### C BC #### [facility] [address] [place] [address] Dr. Dwight Waters WBC 11.6 103/ul Critically high 4.0-11.0 [facility] Comment on above: Performed By: #### C BC #### [facility] [address] [place] [address] Dr. Dwight Waters CHEM 6 (LYTES, BUN CREA)on 0 05-15-2022 Anion gap [Moles/Vol] 12 mmol/L 7 - 17 mmol/L [facility] Chloride [Moles/Vol] 105 mmol/L 98 - 10 8 mmol/L [facility] CO2 [Moles/Vol] 26 mmol/L 21 - 31 mmol/L [facility] Creatinine [Mass/Vol] 2.85 mg/dL High 0.70 - 1.30 mg/dL [facility] GFR/1.73 sq M.predicted CKD-EPI (S/P/Bld) [Vol rate/Area] 26 Low >=60 mL/min/1.73m 2 [facility] Comment on above: Reported eGFR is bas ed on the CKD-EPI 2020 equation using creatinine, age, and sex. Potassium [Moles/Vol] 4.6 mmol/L 3.5 - 5.0 mmol/L [facility] Sodium [Moles/Vol] 138 mmol/L 135 - 145 mmol/L [facility] Urea nitrogen [Mass/Vol] 32 mg/dL High 7 - 25 mg/dL [facility] Urea nitrogen/Creatinine [Mass ratio] 11 mg[facility] ABD/PELVIS WO CONon 05-15 CT [...] transplanted kidney with moderate right-sided hydronephrosis. Atrophic [place] kidneys with moderate right-sided hydronephrosis. Multiple nonobstructive [...] transplanted kidney with moderate right-sided hydronephrosis. Atrophic [place] kidneys with moderate right-sided hydronephrosis. Multiple nonobstructive right renal calculi measuring up to 8 mm. FOLLOW-UP: Follow-up as clinically indicated. Electronically authenticated by: LYNDSAY JEAN Date: 2022-05-15 05:04 Normal [facility] Covid-19 PCR (CVDTB)on 04-30 SARS-CoV-2 (COVID-19) RNA ESTELITA+probe Ql (Unsp spec) Not detected Normal NOT DETECTED [facility] Comment on above: Result Comment: When [...] for this test is supported by the [place] of [employer] and Human Service's declaration that [...] used). Performed By: #### U RTPCR #### [facility] [address] [address] [address] Dwight Waters GLUCOSEon 05-15-2022 Glucose [Mass/Vol] 141 mg/dL High 70 - 99 mg/dL [facility] GOLD TOP TUBEon 05-15-2022 [facility] HEPATIC FUNCTION PANELon Albumin [Mass/Vol] 4.3 g/dL 3.5 - 5.0 g/dL [facility] ALP [Catalytic activity/Vol] 85 U/L 32 - 126 U/L [facility] ALT [Catalytic activity/Vol] 13 U/L 10 - 52 U/L [facility] AST [Catalytic activity/Vol] 15 U/L 10 - 39 U/L [facility] Bilirubin [Mass/Vol] 0.8 mg/dL <1.5 [facility] Bilirubin.direct [Mass/Vol] 0.2 mg/dL <0.3 [facility] Interpretation and review of laboratory results Normal [facility] Protein [Mass/Vol] 7.3 g/dL 6.4 - 8.3 g/dL [facility] LIPASEon 05-15-2022 Lipase [Catalytic activity/Vol] 8 U/L Low 11 - 82 U/L [facility] No Panel Informationon 05-15 Interpretation and review of laboratory results Abnormal [facility] PROF 14(COMP METB)on 022 Albumin [Mass/Vol] 3.8 g/dL Normal 3.4-5.0 [facility] Comment on above: Performed By: #### U RTPCR #### [facility] [address] [place] [address] Dr. Dwight Waters Albumin/Globulin [Mass ratio] 1.1 {ratio} Normal [facility] Comment on above: Performed By: #### U RTPCR #### [facility] [address] [place] [address] Dr. Dwight Waters ALP [Catalytic activity/Vol] 92 U/L Normal 46-116 [facility] Comment on above: Performed By: #### U RTPCR #### [facility] [address] [address] [address] Dwight Waters ALT [Catalytic activity/Vol] 25 U/L Normal 16-63 [facility] Comment on above: Performed By: #### U RTPCR #### [facility] [address] [address] [address] Dwight Waters Anion gap [Moles/Vol] 14.6 mmol/L Normal [facility] Comment on above: Performed By: #### U RTPCR #### [facility] [address] [address] [address] Dwight Waters AST [Catalytic activity/Vol] 17 U/L Normal 15-37 [facility] Comment on above: Performed By: #### U RTPCR #### [facility] [address] [address] [address] Dwight Waters Bilirubin [Mass/Vol] 0.6 mg/dL Normal 0.2-1.0 [facility] Comment on above: Performed By: #### U RTPCR #### [facility] [address] [address] [address] Dwight Waters Calcium [Mass/Vol] 9.9 mg/dL Normal 8.5-10.1 [facility] Comment on above: Performed By: #### U RTPCR #### [facility] [address] [address] [address] Dwight Waters Chloride [Moles/Vol] 106 mmol/L Normal 98-107 [facility] Comment on above: Performed By: #### U RTPCR #### [facility] [address] [address] [address] Dwight Waters CO2 [Moles/Vol] 24.2 mmol/L Normal 21.0-32.0 [facility] Comment on above: Performed By: #### U RTPCR #### [facility] [address] [address] [address] Dwight Waters Creatinine [Mass/Vol] 1.58 mg/dL Critically high 0.70-1.30 [facility] Comment on above: Performed By: #### U RTPCR #### [facility] [address] [address] [address] Dwight Waters EGFR-AF SAUDI [place] 56 mL/min/1.73m2 Critically low >=60 [facility] Comment on above: Performed By: #### U RTPCR #### [facility] [address] [address] [address] Dwight Waters EGFR-NON AF [place] 46 mL/min/1.73m2 Critically low >=60 [facility] Comment on above: Performed By: #### U RTPCR #### [facility] [address] [address] [address] Dwight Waters Globulin (S) [Mass/Vol] 3.5 g/dL Normal [facility] Comment on above: Performed By: #### U RTPCR #### [facility] [address] [address] [address] Dwight Waters Glucose [Mass/Vol] 162 mg/dL Critically high 74-106 [facility] Comment on above: Performed By: #### U RTPCR #### [facility] [address] [address] [address] Dwight Waters Potassium [Moles/Vol] 3.8 mmol/L Normal 3.5-5.1 [facility] Comment on above: Performed By: #### U RTPCR #### [facility] [address] [address] [address] Dwight Waters Protein [Mass/Vol] 7.3 g/dL Normal 6.4-8.2 [facility] Comment on above: Performed By: #### U RTPCR #### [facility] [address] [address] [address] Dwight Waters Sodium [Moles/Vol] 141 mmol/L Normal 136-145 [facility] Comment on above: Performed By: #### U RTPCR #### [facility] [address] [address] [address] Dwight Waters Urea nitrogen [Mass/Vol] 22.0 mg/dL Critically high 7.0-18.0 [facility] Comment on above: Performed By: #### U RTPCR #### [facility] [address] [address] [address] Dwight Waters Urea nitrogen/Creatinine [Mass ratio] 13.9 mg/mg Normal [facility] Comment on above: Performed By: #### U RTPCR #### [facility] [address] [address] [address] Dwight Waters Portable XR Chest Viewson [...] chest. IMPRESSION IMPRESSION: No acute cardiopulmonary disease [facility] Radiology Study observation (narrative) [facility] Portable XR Chest ViewsOrder ed By: Vladislav Omer on 05-15-2022 [facility] URINE DIPSTICK; REFLEX MICRO SCOPY; REFLEX CULTURE PERFORMABLEon 05-15-2022 Appearance (U) Clear Clear [facility] Color (U) Yellow Yellow [facility] Glucose Test strip (U) [Mass/Vol] 100 mg/dL Abnormal Negative [facility] Interpretation and review of laboratory results Abnormal [facility] Ketones (U) [Mass/Vol] Negative Negative [facility] Leukocyte esterase Test strip Ql (U) Large Abnormal Negative [facility] Nitrite Ql (U) Negative Negative [facility] pH (U) 6.0 [pH] 5.0 - 7.0 [facility] Protein (U) [Mass/Vol] 100 mg/dL Abnormal Negative [facility] RBC (U) [#/Vol] Large Abnormal Negative [facility] Specific gravity (U) [Rel density] 1.010 [facility] Urobilinogen (U) [Mass/Vol] 0.2 E.U./dL 0.2 E.U/dL, 1.0 E.U/dL [facility] URINE MICROSCOPIC WITH REFLE X TO CULTUREOrdered By: Rey Bro on 05-15-2022 Bacteria LM Ql (Urine sed) ABSENT ABSENT [facility] Epithelial cells.squamous LM Ql (Urine sed) ABSENT 1/hpf = 1+, 2-5/hpf = 2+, 0/hpf = 0+, ABSENT [facility] Interpretation and review of laboratory results Abnormal [facility] RBC LM.HPF (Urine sed) [#/Area] /[HPF] Abnormal 0 - 2 /HPF [facility] WBC LM.HPF (Urine sed) [#/Area] 10-20 Abnormal 0 - 5 /HPF [facility] CT ABD/PELVIS WO CONon 05-12 CT ABD/PELVIS WO CON Begin Addendum #[address] Lund 3:25 PM EST 05/11/2022. Begin Addendum #2 IMPRESSION below should also contain the followin. 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 The [place] kidneys are progressively atrophic bilaterally compared to [...] of 06/14/2020 are no longer present. The [place] distal right ureter is decompressed beyond this [...] with surgical history for renal graft and [place] right urinary drainage, as a discrete ureteroneocystostomy is not identified, and the graft may be draining via a ureteroureterostomy. Urology consultation recommended. 3. The [place] kidneys are bilaterally atrophic, with right renal sinus calcifications consistent with nonobstructing right [place] renal calculi up to 6 mm. Normal [facility] CBC AUTO DIFFon 05-11-2022 BASO # 0.1 103/ul Normal 0.0-0.1 [facility] Comment on above: Performed By: #### U RTPCR #### [facility] [address] [address] [address] Dwight Waters Basophils/100 WBC (Bld) 0.8 % Normal 0.2-2.0 [facility] Comment on above: Performed By: #### U RTPCR #### [facility] [address] [place] [address] Dr. Dwight Waters EO # 0.2 103/ul Normal 0.0-0.7 [facility] Comment on above: Performed By: #### U RTPCR #### [facility] [address] [place] [address] Dr. Dwight Waters Eosinophils/100 WBC (Bld) 2.5 % Normal 0.9-7.0 [facility] Comment on above: Performed By: #### U RTPCR #### [facility] [address] [place] [address] Dr. Dwight Waters Erythrocyte distribution width (RBC) [Ratio] 12.5 % Normal 11.0-15.0 [facility] Comment on above: Performed By: #### U RTPCR #### [facility] [address] [place] [address] Dr. Dwight Waters Hematocrit (Bld) [Volume fraction] 48.3 % Normal 42.0-54.0 [facility] Comment on above: Performed By: #### U RTPCR #### [facility] [address] [place] [address] Dr. Dwight Waters Hemoglobin (Bld) [Mass/Vol] 15.3 g/dL Normal 14.0-18.0 [facility] Comment on above: Performed By: #### U RTPCR #### [facility] [address] [place] [address] Dr. Dwight Waters IG # 0.01 10e3/ul Normal 0.00-0.03 [facility] Comment on above: Performed By: #### U RTPCR #### [facility] [address] [place] [address] Dr. Dwight Waters IG % 0.2 % Normal 0.0-0.5 [facility] Comment on above: Performed By: #### U RTPCR #### [facility] [address] [place] [address] Dr. Dwight Waters LYMPH # 1.9 103/ul Normal 1.2-3.8 [facility] Comment on above: Performed By: #### U RTPCR #### [facility] [address] [place] [address] Dr. Dwight Waters Lymphocytes/100 WBC (Bld) 29.8 % Normal 20.5-60.0 [facility] Comment on above: Performed By: #### U RTPCR #### [facility] [address] [place] [address] Dr. Dwight Waters MANUAL DIFF REQ NO Normal [facility] Comment on above: Performed By: #### U RTPCR #### [facility] [address] [place] [address] Dr. Dwight Waters MCH (RBC) [Entitic mass] 28.2 pg Normal 25.9-34.0 [facility] Comment on above: Performed By: #### U RTPCR #### [facility] [address] [place] [address] Dr. Dwight Waters MCHC (RBC) [Mass/Vol] 31.7 g/dL Normal 29.9-35.2 [facility] Comment on above: Performed By: #### U RTPCR #### [facility] [address] [place] [address] Dr. Dwight Waters MCV (RBC) [Entitic vol] 89.1 fL Normal 80.0-94.0 [facility] Comment on above: Performed By: #### U RTPCR #### [facility] [address] [place] [address] Dr. Dwight Waters MONO # 0.6 103/ul Normal 0.3-0.8 [facility] Comment on above: Performed By: #### U RTPCR #### [facility] [address] [place] [address] Dr. Dwight Waters Monocytes/100 WBC (Bld) 9.0 % Normal 1.7-12.0 [facility] Comment on above: Performed By: #### U RTPCR #### [facility] [address] [address] [address] Dwight Waters NEUT # 3.6 103/ul Normal 1.4-6.5 [facility] Comment on above: Performed By: #### U RTPCR #### [facility] [address] [place] [address] Dr. Dwight Waters Neutrophils/100 WBC (Bld) 57.7 % Normal 43.0-75.0 [facility] Comment on above: Performed By: #### U RTPCR #### [facility] [address] [place] [address] Dr. Dwight Waters Platelet mean volume (Bld) [Entitic vol] 9.9 fL Normal 9.5-13.5 [facility] Comment on above: Performed By: #### U RTPCR #### [facility] [address] [place] [address] Dr. Dwight Waters PLT 249 103/ul Normal 150-450 [facility] Comment on above: Performed By: #### U RTPCR #### [facility] [address] [place] [address] Dr. Dwight Waters RBC 5.42 106/ul Normal 4.70-6.10 [facility] Comment on above: Performed By: #### U RTPCR #### [facility] [address] [place] [address] Dr. Dwight Waters WBC 6.3 103/ul Normal 4.0-11.0 [facility] Comment on above: Performed By: #### U RTPCR #### [facility] [address] [place] [address] Dr. Dwight Waters ER URINE PROFILEon 2 Bilirubin Ql (U) Unable to perform te sting due to color interference. Abnormal NEGATIVE [facility] Comment on above: Performed By: #### U RTPCR #### [facility] [address] [place] [address] Dr. Dwight Waters Clarity (U) TURBID Abnormal CLEAR [facility] Comment on above: Performed By: #### U RTPCR #### [facility] [address] [place] [address] Dr. Dwight Waters Color (U) RED Abnormal YELLOW [facility] Comment on above: Performed By: #### U RTPCR #### [facility] [address] [place] [address] Dr. Dwight Waters ERUAHD A micrscopic examina tion will be performed if indicated. Normal [facility] Comment on above: Performed By: #### U RTPCR #### [facility] [address] [place] [address] Dr. Dwight Waters Glucose Ql (U) Unable to perform te sting due to color interference. Abnormal NEGATIVE [facility] Comment on above: Performed By: #### U RTPCR #### [facility] [address] [place] [address] Dr. Dwight Waters Hemoglobin Ql (U) Unable to perform te sting due to color interference. Abnormal NEGATIVE [facility] Comment on above: Performed By: #### U RTPCR #### [facility] [address] [place] [address] Dr. Dwight Waters Ketones Ql (U) Unable to perform te sting due to color interference. Abnormal NEGATIVE [facility] Comment on above: Performed By: #### U RTPCR #### [facility] [address] [place] [address] Dr. Dwight Waters LEUKOCYTES Unable to perform te sting due to color interference. Abnormal NEGATIVE [facility] Comment on above: Performed By: #### U RTPCR #### [facility] [address] [place] [address] Dr. Dwight Waters Nitrite Ql (U) Unable to perform te sting due to color interference. Abnormal NEGATIVE [facility] Comment on above: Performed By: #### U RTPCR #### [facility] [address] [place] [address] Dr. Dwight Waters pH (U) 6.5 [pH] Normal 5-9 [facility] Comment on above: Performed By: #### U RTPCR #### [facility] [address] [place] [address] Dr. Dwight Waters SPEC GRAVITY 1.020 Normal 1.005-<=1.02 5 [facility] Comment on above: Performed By: #### U RTPCR #### [facility] [address] [place] [address] Dr. Dwight Waters UA PROTEIN Unable to perform te sting due to color interference. Normal NEGATIVE/ TRACE [facility] Comment on above: Performed By: #### U RTPCR #### [facility] [address] [place] [address] Dr. Dwight Waters UR MICRO IND INDICATED Normal [facility] Comment on above: Performed By: #### U RTPCR #### [facility] [address] [place] [address] Dr. Dwight Wtaers UROBILINOGEN Unable to perform te sting due to color interference. Normal 0.2 - 1.0 [facility] Comment on above: Performed By: #### U RTPCR #### [facility] [address] [place] [address] Dr. Dwight Waters PROF 14(COMP METB)on 022 Albumin [Mass/Vol] 3.8 g/dL Normal 3.4-5.0 [facility] Comment on above: Performed By: #### C MP #### [facility] [address] [place] [address] Dr. Dwight Waters Albumin/Globulin [Mass ratio] 1.1 {ratio} Normal [facility] Comment on above: Performed By: #### C MP #### [facility] [address] [place] [address] Dr. Dwight Waters ALP [Catalytic activity/Vol] 106 U/L Normal 46-116 [facility] Comment on above: Performed By: #### C MP #### [facility] [address] [place] [address] Dr. Dwight Waters ALT [Catalytic activity/Vol] 30 U/L Normal 16-63 [facility] Comment on above: Performed By: #### C MP #### [facility] [address] [place] [address] Dr. Dwight Waters Anion gap [Moles/Vol] 11.7 mmol/L Normal [facility] Comment on above: Performed By: #### C MP #### [facility] [address] [address] [address] Dwight Waters AST [Catalytic activity/Vol] 16 U/L Normal 15-37 [facility] Comment on above: Performed By: #### C MP #### [facility] [address] [address] [address] Dwight Waters Bilirubin [Mass/Vol] 0.6 mg/dL Normal 0.2-1.0 [facility] Comment on above: Performed By: #### C MP #### [facility] [address] [address] [address] Dwight Waters Calcium [Mass/Vol] 9.1 mg/dL Normal 8.5-10.1 [facility] Comment on above: Performed By: #### C MP #### [facility] [address] [place] [address] Dr. Dwight Waters CO2 [Moles/Vol] 27.4 mmol/L Normal 21.0-32.0 [facility] Comment on above: Performed By: #### C MP #### [facility] [address] [place] [address] Dr. Dwight Waters Creatinine [Mass/Vol] 1.18 mg/dL Normal 0.70-1.30 [facility] Comment on above: Performed By: #### C MP #### [facility] [address] [place] [address] Dr. Dwight Waters EGFR-AF SAUDI ARABIAN >60 Normal >=60 [facility] Comment on above: Performed By: #### C MP #### [facility] [address] [place] [address] Dr. Dwight Waters EGFR-NON AF SAUDI ARABIAN >60 Normal >=60 [facility] Comment on above: Performed By: #### C MP #### [facility] [address] [place] [address] Dr. Dwight Waters Globulin (S) [Mass/Vol] 3.6 g/dL Normal [facility] Comment on above: Performed By: #### C MP #### [facility] [address] [address] [address] Dwight Waters Glucose [Mass/Vol] 192 mg/dL Critically high 74-106 [facility] Comment on above: Performed By: #### C MP #### [facility] [address] [address] [address] Dwight Waters Potassium [Moles/Vol] 4.1 mmol/L Normal 3.5-5.1 [facility] Comment on above: Performed By: #### C MP #### [facility] [address] [place] [address] Dr. Dwight Waters Protein [Mass/Vol] 7.4 g/dL Normal 6.4-8.2 [facility] Comment on above: Performed By: #### C MP #### [facility] [address] [place] [address] Dr. Dwight Waters Sodium [Moles/Vol] 142 mmol/L Normal 136-145 [facility] Comment on above: Performed By: #### C MP #### [facility] [address] [place] [address] Dr. Dwight Waters Urea nitrogen [Mass/Vol] 17.0 mg/dL Normal 7.0-18.0 [facility] Comment on above: Performed By: #### C MP #### [facility] [address] [place] [address] Dr. Dwight Waters Urea nitrogen/Creatinine [Mass ratio] 14.4 mg/mg Normal [facility] Comment on above: Performed By: #### C MP #### [facility] [address] [place] [address] Dr. Dwight Waters URINE MICROSCOPIC ONLYon BACTERIA NONE SEEN Normal NONE SEEN [facility] Comment on above: Performed By: #### U RTPCR #### [facility] [address] [place] [address] Dr. Dwight Waters Bacteria identified Cx Nom (U) NOT INDICATED Normal [facility] Comment on above: Performed By: #### U RTPCR #### [facility] [address] [place] [address] Dr. Dwight Waters CAST NONE SEEN Normal NONE SEEN [facility] Comment on above: Performed By: #### U RTPCR #### [facility] [address] [place] [address] Dr. Dwight Waters Crystals LM Nom (Urine sed) NONE SEEN Normal NONE SEEN [facility] Comment on above: Performed By: #### U RTPCR #### [facility] [address] [address] [address] Dwight Waters Epithelial cells LM Ql (Urine sed) RARE Normal NONE SEEN /RARE [facility] Comment on above: Performed By: #### U RTPCR #### [facility] [address] [place] [address] Dr. Dwight Waters MUCOUS NONE SEEN Normal NONE SEEN [facility] Comment on above: Performed By: #### U RTPCR #### [facility] [address] [place] [address] Dr. Dwight Waters RBC (U) [#/Vol] /uL Abnormal 0-2 [facility] Comment on above: Performed By: #### U RTPCR #### [facility] [address] [place] [address] Dr. Dwight Waters WBC NONE SEEN Normal NONE SEEN [facility] Comment on above: Performed By: #### U RTPCR #### [facility] [address] [place] [address] Dr. Dwight Waters K (Potassium)on 01-06-2020 Potassium [Moles/Vol] 4.4 mmol/L Normal 3.7-5.3 [facility] Comment on above: Performed By: #### K #### [facility] [address] [place] [address] Orchard Worker: Kehinde Woodward MD Potassiumon 01-06-2020 Potassium [Moles/Vol] 4.4 mmol/L 3.7 - 5.3 mmol/L [facility] Work Phone: Hemoglobin and Hematocrit, B loodon 10-24-2019 Hematocrit (Bld) [Volume fraction] 23.6 % Low 40.7 - 50.3 % [facility], [place] Hemoglobin (Bld) [Mass/Vol] 7.3 g/dL Low 13 - 17 g/dL [place], [place] Interpretation and review of laboratory results Abnormal [place], [place] Hgb/Hcton 10-24-2019 Hematocrit (Bld) [Volume fraction] 23.6 % Low 40.7-50.3 [facility] Comment on above: Performed By: #### H H #### [facility] [address] [place] [address] Orchard Worker: Kehinde Woodward MD Hemoglobin (Bld) [Mass/Vol] 7.3 g/dL Low 13.0-17.0 [facility] Comment on above: Performed By: #### H H #### [facility] [address] [place] [address] Orchard Worker: Kehinde Woodward MD Hemoglobinon 08-27-2019 Hemoglobin (Bld) [Mass/Vol] 7.5 g/dL Low 13.0-17.0 [facility] Comment on above: Performed By: #### H GB #### [facility] [address] [place] [address] Orchard Worker: Kehinde Woodward MD Hemoglobin (Bld) [Mass/Vol] 7.5 g/dL Low 13 - 17 g/dL [place], [place] Interpretation and review of laboratory results Abnormal [place] Hemoglobinon 08-08-2019 Hemoglobin (Bld) [Mass/Vol] 8.3 g/dL Low 13.0-17.0 [facility] Comment on above: Performed By: #### H GB #### [facility] [address] [place] [address] Orchard Worker: Kehinde Woodward MD Hemoglobin (Bld) [Mass/Vol] 8.3 g/dL Low 13 - 17 g/dL [place], [place] Interpretation and review of laboratory results Abnormal [place] Hemoglobinon 08-04-2019 Hemoglobin (Bld) [Mass/Vol] 8.0 g/dL Low 13.0-17.0 [facility] Comment on above: Performed By: #### H GB #### [facility] [address] [place] [address] Orchard Worker: Kehinde Woodward MD Hemoglobin A1Con 08-03-2019 HbA1c (Bld) [Mass fraction] % Low 4.8-5.9 [facility] Comment on above: Result Comment: The ADA and AACC recommend providing the estimated average glucose result to permit better patient understanding of their HBA1c result. Performed By: #### G LYHGB #### [facility] [address] [place] [address] Orchard Worker: Kehinde Woodward MD Glucose [Mass/Vol] mg/dL mg/dL [place], [place] Comment on above: The ADA and AACC rec ommend providing the estimated average glucose result to permit better patient understanding of their HBA1c result. HbA1c (Bld) [Mass fraction] % Low 4.8 - 5.9 % [place], [place] Interpretation and review of laboratory results Abnormal [place] Hemoglobinon 08-01-2019 Hemoglobin (Bld) [Mass/Vol] 8.1 g/dL Low 13.0-17.0 [facility] Comment on above: Performed By: #### H GB #### [facility] [address] [place] [address] Orchard Worker: Kehinde Woodward MD Hemoglobin (Bld) [Mass/Vol] 8.1 g/dL Low 13 - 17 g/dL [place], [place] Interpretation and review of laboratory results Abnormal [place] Hgb/Hcton 06-10-2019 Hematocrit (Bld) [Volume fraction] 24.3 % Low 40.7-50.3 [facility] Comment on above: Performed By: #### H H #### [facility] [address] [place] [address] Orchard Worker: Kehinde Woodward MD Hemoglobin (Bld) [Mass/Vol] 7.4 g/dL Low 13.0-17.0 [facility] Comment on above: Performed By: #### H H #### [facility] [address] [place] [address] Orchard Worker: Kehinde Woodward MD Hemoglobinon 06-01-2019 Hemoglobin (Bld) [Mass/Vol] 7.2 g/dL Low 13.0-17.0 [facility] Comment on above: Performed By: #### H GB #### [facility] [address] [place] [id number] Orchard Worker: Kehinde Woodward MD K (Potassium)on 01-14-2019 Potassium [Moles/Vol] 3.6 mmol/L Low 3.7-5.3 [facility] Comment on above: Performed By: #### K #### [facility] [address] [place], [place] [id number] Orchard Worker: Kehinde Woodward MD Otheron 10-19-2018 IMPRESSION: 1. [...] characteristics determined by [facility] at [facility]. It has not been cleared or [...] Amitriptyline(50), Amphetamine(250), Atenolol(500), Barbiturates(1000), Benzoylecgonine(50), Buprenorphine(50), Bupropion(25), Caffeine(49920), Chlordiazepoxide(50), Chlorpheniramine(100), Chlorpromazine(50), Citalopram(100), Clonazepam(200), Cocaine(25), Codeine(200), [...] by Screen method NONE DETECTED Invalid Interpretation Shira LOUIS, QASIM TOXICOLOGY SCREEN URINE - UD [facility] 10-12-2018 Drugs identified Screen Nom (U) For Medical Purposes Only, Non-forensic, screen results are presumptive. No confirmatory testing will follow. Invalid Interpretation Code MISSY, QASIM Comment on above: This Liquid Chromato graphy Mass Spectrometry (LC/MS/MS) test was developed and its performance characteristics determined by Toxicology Laboratory at [facility]. It has not been cleared or [...] Amitriptyline(50), Amphetamine(250), Atenolol(500), Barbiturates(200), Benzoylecgonine(50), Buprenorphine(500), Bupropion(25), Caffeine(79891), Cannabinoids(THC)(50), Chlordiazepoxide(50), Chlorpheniramine(100), Chlorpromazine(50), Citalopram(100), Clonazepam(200), Cocaine(25), [...] 97.9 [degF] Kevin Sage MD Work Phone: [facility] 01-23-2024 15:04-0500 Diastolic blood pressure 67 mm[Hg] Kevin Sage MD Work Phone: [facility] 01-23-2024 15:04-0500 Heart rate 51 /min Kevin Sage MD Work Phone: [facility] 01-23-2024 15:04-0500 Respiratory rate 16 /min Kevin Sage MD Work Phone: [facility] 01-23-2024 15:04-0500 SaO2% (BldA) [Mass fraction] 94 % Kevin Sage MD Work Phone: [facility] 01-23-2024 15:04-0500 Systolic blood pressure 151 mm[Hg] Kevin Sage MD Work Phone: [facility] 01-23-2024 10:46-0500 Body mass index (BMI) [Ratio] 30.94 kg/m2 Kevin Sage MD Work Phone: [facility] 01-23-2024 10:46-0500 Body weight 89.6 kg Kevin Sage MD Work Phone: [facility] 01-18-2024 11:21-0500 Body height 170.2 cm Kevin Sage MD Work Phone: [facility] 01-06-2024 09:04-0500 Body height 170.2 cm Zuly Marissaz [employer]K BAND SETTER Work Phone: [facility] 01-06-2024 09:04-0500 Body mass index (BMI) [Ratio] 32.42 kg/m2 Zuly Aichholz [employer] B[employer] SETTER Work Phone: [facility] 01-06-2024 09:04-0500 Body temperature 97.81 [degF] Zuly Lexiehlatishaz NECK BAND SETTER Work Phone: [facility] 01-06-2024 09:04-0500 Body weight 93.89 kg Zuly Aichholz NECK BAND SETTER Work Phone: [facility] 01-06-2024 09:04-0500 Diastolic blood pressure 70 mm[Hg] Zuly Lexiehholz NECK BAND SETTER Work Phone: [facility] 01-06-2024 09:04-0500 Heart rate 95 /min Zuly Lexiehholz NECK BAND SETTER Work Phone: [facility] 01-06-2024 09:04-0500 Respiratory rate 17 /min Zuly Aichholz [employer]ECK BAND SETTER Work Phone: [facility] 01-06-2024 09:04-0500 SaO2% (BldA) [Mass fraction] 99 % Zuly Lexiehholz NECK BAND SETTER Work Phone: [facility] 01-06-2024 09:04-0500 Systolic blood pressure 138 mm[Hg] Zuly Aichholz NECK BAND SETTER Work Phone: 3(290)481-[address] [place] [address] 09-11-2023 10:31-0400 Body temperature 97.81 [degF] Steve Yeison MBBS Work Phone: [facility] 09-11-2023 10:31-0400 Diastolic blood pressure 66 mm[Hg] Steve Yeison MBBS Work Phone: [facility] 09-11-2023 10:31-0400 Heart rate 70 /min Steve Yeison MBBS Work Phone: [facility] 09-11-2023 10:31-0400 Respiratory rate 20 /min Steve Yeison MBBS Work Phone: [facility] 09-11-2023 10:31-0400 SaO2% (BldA) [Mass fraction] 91 % Steve Yeison MBBS Work Phone: [facility] 09-11-2023 10:31-0400 Systolic blood pressure 129 mm[Hg] Steve Yeison MBBS Work Phone: [facility] 09-10-2023 15:50-0400 Body mass index (BMI) [Ratio] 31.99 kg/m2 Steve Yeison MBBS Work Phone: [facility] 09-10-2023 15:50-0400 Body weight 92.67 kg Steve Yeison MBBS Work Phone: [facility] 09-02-2023 07:32-0400 Body height 170.2 cm Steve Yeison MBBS Work Phone: [facility] 08-28-2023 13:33-0400 Body height 170.2 cm Steve Yeison MBBS Work Phone: [facility] 08-28-2023 13:33-0400 Body mass index (BMI) [Ratio] 32.12 kg/m2 Steve Yeison MBBS Work Phone: 3(258)[phone] [place] [address] 08-28-2023 13:33-0400 Body temperature 97.3 [degF] Steve Yeison MBBS Work Phone: [facility] 08-28-2023 13:33-0400 Body weight 93.03 kg Steve Yeison MBBS Work Phone: [facility] 08-28-2023 13:33-0400 Diastolic blood pressure 41 mm[Hg] Steve Yeison MBBS Work Phone: [facility] 08-28-2023 13:33-0400 Heart rate 116 /min Steve Yeison MBBS Work Phone: [facility] 08-28-2023 13:33-0400 Systolic blood pressure 106 mm[Hg] Steve Yeison MBBS Work Phone: [facility] 06-12-2023 14:50-0400 Body mass index (BMI) [Ratio] 33.8 kg/m2 Rebecasa Olsen DOCUMENT MANAGEMENT TECHNICIAN-SAND SCREENER OPERATOR Work Phone: [facility] 06-12-2023 14:50-0400 Body temperature 97.3 [degF] Rebeca Olsen DOCUMENT MANAGEMENT TECHNICIAN-SAND SCREENER OPERATOR Work Phone: [facility] 06-12-2023 14:50-0400 Body weight 97.89 kg Rebeca Olsen DOCUMENT MANAGEMENT TECHNICIAN-SAND SCREENER OPERATOR Work Phone: [facility] 06-12-2023 14:50-0400 Diastolic blood pressure 77 mm[Hg] Rebeca Olsen DOCUMENT MANAGEMENT TECHNICIAN-SAND SCREENER OPERATOR Work Phone: [facility] 06-12-2023 14:50-0400 Heart rate 76 /min Rebeca Olsen DOCUMENT MANAGEMENT TECHNICIAN-SAND SCREENER OPERATOR Work Phone: [facility] 06-12-2023 14:50-0400 Systolic blood pressure 146 mm[Hg] Rebeca Olsen DOCUMENT MANAGEMENT TECHNICIAN-SAND SCREENER OPERATOR Work Phone: [facility] 01-16-2023 08:57-0500 Body height 170.2 cm [facility] Work Phone: [facility] 01-16-2023 08:57-0500 Body mass index (BMI) [Ratio] 33.66 kg/m2 [facility] Work Phone: [facility] 01-16-2023 08:57-0500 Body temperature 97.3 [degF] [facility] Work Phone: [facility] 01-16-2023 08:57-0500 Body weight 97.48 kg [facility] Work Phone: [facility] 01-16-2023 08:57-0500 Diastolic blood pressure 75 mm[Hg] [facility] Work Phone: [facility] 01-16-2023 08:57-0500 Heart rate 76 /min [facility] Work Phone: [facility] 01-16-2023 08:57-0500 Systolic blood pressure 142 mm[Hg] [facility] Work Phone: [facility] 09-10-2022 09:38-0400 Body height 170.2 cm Ryan Yepez MD Work Phone: [facility] 09-10-2022 09:38-0400 Body mass index (BMI) [Ratio] 33.67 kg/m2 Ryan Yepez MD Work Phone: [facility] 09-10-2022 09:38-0400 Body weight 97.52 kg Ryan Yepez MD Work Phone: [facility] 09-10-2022 09:38-0400 Diastolic blood pressure 83 mm[Hg] Ryan Yepez MD Work Phone: 9(037)964-323701 [place] [address] 09-10-2022 09:38-0400 Heart rate 64 /min Ryan Yepez MD Work Phone: 5(172)870-286058 [place] [address] 09-10-2022 09:38-0400 SaO2% (BldA) [Mass fraction] 96 % Ryan Yepez MD Work Phone: 1(117)107-548458 [place] [address] 09-10-2022 09:38-0400 Systolic blood pressure 129 mm[Hg] Ryan Yepez MD Work Phone: 7(844)378-983358 [place] [address] 07-07-2022 13:48-0400 Diastolic blood pressure 76 mm[Hg] Ryan Yepez MD Work Phone: 9(756)901-027558 [place] [address] 07-07-2022 13:48-0400 Heart rate 82 /min Ryan Yepez MD Work Phone: 1(239)007-928258 [place] [address] 07-07-2022 13:48-0400 SaO2% (BldA) [Mass fraction] 96 % Ryan Yepez MD Work Phone: 2(590)934-859458 [place] [address] 07-07-2022 13:48-0400 Systolic blood pressure 141 mm[Hg] Ryan Yepze MD Work Phone: 7(003)714-921658 [place] [address] 06-27-2022 13:32-0400 Body height 170.2 cm Ryan Yepez MD Work Phone: 8(262)581-735658 [place] [address] 06-27-2022 13:32-0400 Body mass index (BMI) [Ratio] 34.24 kg/m2 Ryan Yepez MD Work Phone: 3(151)055-282558 [place] [address] 06-27-2022 13:32-0400 Body temperature 98.6 [degF] Ryan Yepez MD Work Phone: 2(652)448-585558 [place] [address] 06-27-2022 13:32-0400 Body weight 99.16 kg Ryan Yepez MD Work Phone: [facility] 06-27-2022 13:32-0400 Diastolic blood pressure 78 mm[Hg] Ryan Yepez MD Work Phone: [facility] 06-27-2022 13:32-0400 Heart rate 77 /min Ryan Yepez MD Work Phone: [facility] 06-27-2022 13:32-0400 SaO2% (BldA) [Mass fraction] 95 % Ryan Yepez MD Work Phone: [facility] 06-27-2022 13:32-0400 Systolic blood pressure 121 mm[Hg] Ryan Yepez MD Work Phone: [facility] 06-27-2022 10:52-0400 Body height 170.2 cm Rena Brewster RN [facility] 06-27-2022 10:52-0400 Body mass index (BMI) [Ratio] 34.46 kg/m2 Rena Brewster RN [facility] 06-27-2022 10:52-0400 Body temperature 98.2 [degF] Rena Brewster RN [facility] 06-27-2022 10:52-0400 Body weight 99.79 kg Rena Brewster RN [facility] 06-27-2022 10:52-0400 Diastolic blood pressure 73 mm[Hg] Rena Brewster RN [facility] 06-27-2022 10:52-0400 Heart rate 78 /min Rena Brewster RN [facility] 06-27-2022 10:52-0400 Respiratory rate 20 /min Rena Brewster RN [facility] 06-27-2022 10:52-0400 SaO2% (BldA) [Mass fraction] 97 % Rena Brewster RN [facility] 06-27-2022 10:52-0400 Systolic blood pressure 135 mm[Hg] Rena Brewster RN [facility] 06-12-2022 14:23-0400 Body mass index (BMI) [Ratio] 34.59 kg/m2 Stevemassiel Farrari MBBS Work Phone: [facility] 06-12-2022 14:23-0400 Body temperature 97 [degF] Steve Farrari MBBS Work Phone: [facility] 06-12-2022 14:23-0400 Body weight 100.2 kg Steve Farrari MBBS Work Phone: [facility] 06-12-2022 14:23-0400 Diastolic blood pressure 66 mm[Hg] Steve Farrari MBBS Work Phone: [facility] 06-12-2022 14:23-0400 Heart rate 63 /min Steve Farrari MBBS Work Phone: [facility] 06-12-2022 14:23-0400 Systolic blood pressure 133 mm[Hg] Steve Farrari MBBS Work Phone: [facility] 05-20-2022 15:21-0400 Body temperature 97.9 [degF] Gian Villatoro MD Work Phone: [facility] 05-20-2022 15:21-0400 Diastolic blood pressure 64 mm[Hg] Gian Villatoro MD Work Phone: [facility] 05-20-2022 15:21-0400 Heart rate 55 /min Gian Villatoro MD Work Phone: [facility] 05-20-2022 15:21-0400 Respiratory rate 15 /min Gian Villatoro MD Work Phone: [facility] 05-20-2022 15:21-0400 SaO2% (BldA) [Mass fraction] 95 % Gian Villatoro MD Work Phone: [facility] 05-20-2022 15:21-0400 Systolic blood pressure 145 mm[Hg] Gian Villatoro MD Work Phone: [facility] 05-19-2022 12:15-0400 Body mass index (BMI) [Ratio] 35.87 kg/m2 Gian Villatoro MD Work Phone: [facility] 05-19-2022 12:15-0400 Body weight 103.92 kg Gian Villatoro MD Work Phone: [facility] Comment on above: standing scale 05-16-2022 16:19-0400 Body height 170.2 cm Gian Villatoro MD Work Phone: [facility] 10-19-2018 08:44-0500 BMI (Body Mass Index) 26.58 kg/m2 [facility] Work Phone: 10-19-2018 08:44-0500 BP Diastolic 76 mm[Hg] [facility] Work Phone: 10-19-2018 08:44-0500 BP Systolic 144 mm[Hg] [facility] Work Phone: 10-19-2018 08:44-0500 Height 172.7 cm [facility] Work Phone: 10-19-2018 08:44-0500 Pulse (Heart Rate) 92 /min [facility] Work Phone: 10-19-2018 08:44-0500 Pulse Oximetry 99 % [facility] Work Phone: 10-19-2018 08:44-0500 Respiratory Rate 16 /min [facility] Work Phone: 10-19-2018 08:44-0500 Weight 79.[address] [facility] Work Phone: 10-12-2018 09:50-0500 BMI (Body Mass Index) 27.24 kg/m2 [facility] Work Phone: 10-12-2018 09:50-0500 Body Temperature 98.6 [degF] [facility] Work Phone: 10-12-2018 09:50-0500 BP Diastolic 80 mm[Hg] [facility] Work Phone: 10-12-2018 09:50-0500 BP Systolic 157 mm[Hg] [facility] Work Phone: 10-12-2018 09:50-0500 Height 169.5 cm [facility] Work Phone: 10-12-2018 09:50-0500 Pulse (Heart Rate) 94 /min [facility] Work Phone: 10-12-2018 09:50-0500 Weight 78.29 kg [facility] Work Phone: Encounters Encounter Date Encounter Type Care Provider Facility Start: 02-11-2024 End: 02-11-2024 ambulatory ZULY KIANA Not Available Start: 01-16-2024 Encounter for other preprocedural examination KELVIN PACHECO [facility] Start: 01-16-2024 End: 01-23-2024 Evaluation and management of inpatient PROVIDER NOT IN SYSTEM Facility:[facility] Start: 01-16-2024 End: 01-23-2024 Evaluation and management of inpatient Kevin Sage MD Work Phone: [id number] Comment on above: Pleural effusion on right Start: 01-16-2024 End: 01-23-2024 Patient encounter status Kevin Sage MD Work Phone: [facility] Work Phone: Start: 01-12-2024 End: 01-12-2024 ambulatory Angel Fete RPh,PharmD Pharm[facility] [place] Start: 01-12-2024 End: 01-12-2024 Patient encounter procedure Angel Fete RPh,PharmD [facility] [place] Start: 01-08-2024 Clinisync Result Encounter Generic External Data Provider [facility] External Department Unsolicited Start: 01-08-2024 Clinisync Result Encounter Generic External Data Provider [facility] External Department Unsolicited Start: 01-06-2024 End: 01-06-2024 ambulatory ZULY AICHHOLZ Not Available Start: 01-06-2024 End: 01-06-2024 Office outpatient visit 25 minutes Zuly Kiana [employer]TER Work Phone: [facility] Comment on above: Bilateral lower extr emity edema (Primary Dx); 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); Atherosclerosis 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); Obesity (BMI 30-39.9); DARLENE (obstructive sleep apnea); Tremor; Immunocompromised (CMS/HCC); Primary hypertension ([facility]); Shortness of breath Start: 01-01-2024 Clinisync Result [...] Outpatient RX [facility] Start: 09-29-2023 ambulatory ZULY AICHHOLZ Facility: [facility] Start: 09-24-2023 ambulatory ZULY AICHHOLZ Facility: [facility] Start: 09-23-2023 ambulatory ZULY BRUNO Facility: [facility] Start: 09-15-2023 [facility] Start: 08-28-2023 End: 09-11-2023 Evaluation and management of inpatient STEVE LATHAM Facility:[facility] Start: 08-28-2023 End: 09-11-2023 Evaluation and management of inpatient Steve Latham MBBS Work Phone: [id number] Start: 08-28-2023 ambulatory STEVE LATHAM Facility:[facility] Start: 08-28-2023 End: 08-28-2023 Office outpatient visit 25 minutes Steve Latham MBBS Work Phone: [facility] Comment on above: Immunosuppressed sta tus (Primary Dx); Kidney replaced by transplant; Aftercare following organ transplant; High risk medication use; Other general symptoms and signs; Abnormal blood chemistry; Hypertension secondary to other renal disorders Start: 08-19-2023 ambulatory Meka rueda [facility] [place] Start: 08-19-2023 Patient encounter procedure Meka Munoz [facility] Start: 06-12-[address] ty:[facility] Start: 06-12-2023 End: 06-12-2023 Office outpatient visit 25 minutes Steve Latham MBBS Work Phone: [facility] Comment on above: 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) Start: 06-10-2023 ambulatory Maren Bar RPh,PharmD [facility] [place] Start: 06-10-2023 Patient encounter procedure Maren Bar RPh,PharmD [facility] [place] Start: 05-26-2023 ambulatory ZULY BRUNO Facility: [facility] Start: 04-28-2023 End: 04-29-[address] DOCTOR EVANS Facility: Start: 04-13-2023 End: 04-13-2023 ambulatory [facility] Start: 03-12-2023 ambulatory Angel Carpio RPh,PharmD [facility] [place] Start: 03-12-2023 Patient encounter procedure Angel Carpio RPh,PharmD [facility] [place] Start: 03-10-2023 ambulatory Angel Carpio RPh,PharmD [facility] [place] Start: 03-10-2023 Patient encounter procedure Angel Carpio RPh,PharmD [facility] [place] Start: 03-02-2023 End: 03-03-[address] DOCTOR EVANS Facility:[facility] Start: 01-16-2023 End: 01-16-2023 Office outpatient visit 25 minutes Daisha Max DO Work Phone: [facility] Comment on above: Abnormal blood chemi stry (Primary Dx); Liver transplant recipient; Kidney replaced by transplant; Immunosuppressed status; Aftercare following organ transplant Start: 12-29-2022 End: 12-30-[address] DOCTOR EVANS Facility:[facility] Start: 11-04-2022 End: 11-05-[address] DOCTOR EVANS Facility: Start: 09-15-2022 End: 09-16-[address] DOCTOR EVANS Facility:[facility] Start: 09-10-2022 End: 09-10-2022 Office outpatient visit 25 minutes Ryan Yepez MD Work Phone: [facility] Comment on above: BPH with obstruction /lower urinary tract symptoms (Primary Dx); Encounter for screening for malignant neoplasm of prostate Start: 08-28-2022 End: 08-29-2022 ambulatory ROB BRUNO Facility:[facility] Start: 08-14-2022 End: 08-15-[address] DOCTOR EVANS Facility:[facility] Start: 07-07-2022 End: 07-07-2022 Patient encounter procedure Ryan Yepez MD Work Phone: [facility] Comment on above: Other hydronephrosis (Primary Dx); [...] MD Work Phone: [facility] Comment on above: Other hydronephrosis (Primary Dx) [...] Phone: [facility] Comment on above: Immunosuppressed sta tus [...] of inpatient Gian Villatoro MD Work Phone: [id number] Comment on above: FAYE (acute kidney in jury) Start: 05-15-2022 End: 05-15-[address] GEORGE ALEXANDER Facility:[facility] Start: 05-11-2022 End: 05-11-[address] GEORGE ALEXANDER Facility:[facility] Start: 03-14-2022 ambulatory Comfort Rivera [facility] Work Phone: [facility] Start: 03-14-2022 Patient encounter procedure Comfort Rivera [facility] Work Phone: [facility]patient [facility] Start: 06-14-2021 End: 06-14-2021 ambulatory Comfort Rivera [facility] Work Phone: [facility] Start: 06-14-2021 Patient encounter procedure Comfort Rivera [facility] Work Phone: [facility] Start: 01-20-2020 End: 01-27-2020 Patient encounter procedure PEPE CASE Facility:[facility] Start: 01-06-2020 End: 01-07-2020 Patient encounter procedure [facility] Start: 01-06-2020 End: 01-06-2020 Subsequent hospital visit by physician [facility] Start: 10-24-2019 End: 10-25-2019 Patient encounter procedure TANA Colón [facility] Start: 10-24-2019 End: 10-24-2019 Subsequent hospital visit by physician [facility] Start: 08-27-2019 End: 08-28-2019 Patient encounter procedure [facility] Start: 08-27-2019 End: 08-27-2019 Subsequent hospital visit by physician [facility] Start: 08-08-2019 End: 08-09-2019 Patient encounter procedure [facility] Start: 08-08-2019 End: 08-08-2019 Subsequent hospital visit by physician [facility] Start: 08-03-2019 End: 08-04-2019 Patient encounter procedure [facility] Start: 08-03-2019 End: 08-03-2019 Subsequent hospital visit by physician [facility] Start: 08-01-2019 End: 08-02-2019 Patient encounter procedure [facility] Start: 08-01-2019 End: 08-01-2019 Subsequent hospital visit by physician [facility] Start: 06-10-2019 End: 06-11-2019 Patient encounter procedure [facility] Start: 06-01-2019 End: 06-02-2019 Patient encounter procedure [facility] Start: 01-14-2019 End: 01-15-2019 Patient encounter procedure [facility] Start: 11-17-2018 End: 11-17-2018 Patient encounter procedure Melania Pierson [facility] Pre Transplant Office Comment on above: Social Work Follow-u p Start: 10-19-2018 End: 10-19-2018 Patient encounter [facility] Pre Transplant Office Comment on above: Cirrhosis of liver w ithout ascites, unspecified hepatic cirrhosis type (Primary Dx) Start: 10-19-2018 End: 10-19-2018 Office outpatient visit 25 minutes Christin Elizabeth Work Phone: Division of Gastroenterology and Hepatology [place] Comment on above: Alcoholic cirrhosis of liver without ascites (Primary Dx); Pre-transplant evaluation for liver transplant; Hepatic encephalopathy Start: 10-13-2018 End: 10-13-2018 Patient encounter procedure [facility] Pre Transplant Office Comment on above: Reschedule Outside Medical Allan rds Request Start: 10-12-2018 End: 10-12-2018 Patient encounter procedure Sophie Cary [facility] Pre Transplant Office Comment on above: Alcoholic cirrhosis, unspecified whether ascites present (Primary Dx); Pre-transplant evaluation for liver transplant Start: 10-12-2018 End: 10-12-2018 Office outpatient new 60 minutes Alfredito Restrepo Work Phone: [facility] Pre Transplant Office Comment on above: Alcoholic cirrhosis, unspecified whether ascites present; ESRD (end stage renal disease) on dialysis; Pre-transplant evaluation for liver transplant Start: 10-06-2018 End: 10-06-2018 Patient encounter procedure Yovani Mejias Dominga Work Phone: Department of Radiology Comment on above: Canceled (Insurance Company Redirected Pt) Start: 10-05-2018 Patient encounter status Comfort Rivera [facility] Work Phone: [facility] Procedures Date Procedure Procedure Detail Performing [...] above: Performed By: #### X M ####[facility] ([facility])[address] [place] [address] Start: 01-22-2024 Assay of magnesium Just in Jake LUZ Work Phone: Start: 01-22-2024 Drug screen quantita tive tacrolimus Arelis Mera MD Work Phone: Start: 01-21-2024 Assay of magnesium Just in Jake LUZ Work Phone: Start: 01-21-2024 Drug screen quantita tive tacrolimus Arelis Mera MD Work Phone: Start: 01-20-2024 Right heart cath o2 saturation & cardiac output UL Jain MD Work Phone: Start: 01-20-2024 End: 01-20-2024 Blood count hemoglobin LU Jain MD Work Phone: Start: 01-20-2024 Cardiac catheterization LU Jain MD Work Phone: Start: 01-20-2024 Assay of magnesium Just in Jake LUZ Work Phone: Start: 01-20-2024 Hepatic function panel Arelis Mera MD Work Phone: Start: 01-20-2024 ITRACONAZOLE LEVEL Jennifer norbert Alarcon [facility] Work Phone: Start: 01-20-2024 Oscillating [...] nos quantifica tion each organism Melania Ortiz [facility] Work Phone: Start: 01-18-2024 Echocardiography STEVE N [...] AURIS SCREEN BY PCR Carol Ann Capps DOCUMENT MANAGEMENT TECHNICIAN-SOIL SURVEYOR Work Phone: Start: 01-08-2024 ALL CBC WITH [...] Phone: Start: 09-07-2023 Assay of magnesium Milton eKlly MD Work Phone: Start: 09-07-2023 Hepatic function [...] DARYL AURIS SCREEN BY PCR Carol Ann Rod Jefry DOCUMENT MANAGEMENT TECHNICIAN-SOIL SURVEYOR Work Phone: Start: 08-28-2023 CBC AND ELECTRONIC [...] above: Performed By: #### C MP #### [facility] [address] [place] [address] Dr. Dwight Waters Start: 07-07-2022 Rmvl nfros [...] Start: 05-15-2022 MINT GREEN TOP TUBE Kain andrzej Elizalde MD Work Phone: Start: 05-15-2022 RAINBOW DRAW Vladislav sanches MD Work Phone: Start: 05-10-2020 H/O: liver recipient S/P liver trans plant Comfort Rivera [facility] Work Phone: Start: 04-08-2020 H/O: liver recipient Liver tra nsplant recipient Comfort Rivera [facility] Work Phone: Start: 01-06-2020 Potassium [...] De ceased-donor kidney transplant recipient Comfort Rivera [facility] Work Phone: Start: 06-10-2019 HEMOGLOBIN AND HEMAT OCRIT, BLOOD ROB KASMANI Start: 06-01-2019 Blood count hemoglobin ROB KASMANI Start: 03-22-2019 Lipid 1996 panel - S fabricio or Plasma Comfort Rivera [facility] Work Phone: Start: 01-14-2019 Potassium serum plasma/whole blood ROB PATINO Start: 10-19-2018 End: 10-19-2018 Ultrasonography of abdomen Yovani Orr Work Phone: Start: 10-12-2018 End: 10-12-2018 Blood typing serologic abo Yovani Orr Work Phone: Start: 10-12-2018 End: 10-12-2018 Hemoglobin glycosylated a1c Yovani Mejias [employer] Work Phone: Start: 10-12-2018 End: 10-12-2018 25 hydroxy includes fractions if performed Yovani Mejias [employer] Work Phone: Start: 10-12-2018 End: 10-12-2018 Albumin serum plasma/whole blood Yovani Mejias [employer] Work Phone: Start: 10-12-2018 End: 10-12-2018 Alpha-fetoprotein serum Yovani Mejias [employer] Work Phone: Start: 10-12-2018 End: 10-12-2018 Antibody cytomegalovirus cmv Yovani Mejias [employer] Work Phone: Start: 10-12-2018 End: 10-12-2018 Antibody dann-montes eb virus viral capsid vca Yovani Mejias [employer] Work Phone: Start: 10-12-2018 End: 10-12-2018 Antibody herpes smplx type 1 Yovani Mejias [employer] Work Phone: Start: 10-12-2018 End: 10-12-2018 Antibody rubeola Yovani Mejias [employer] Work Phone: Start: 10-12-2018 End: 10-12-2018 Antibody varicella-zoster Yovani Mejias [employer] Work Phone: Start: 10-12-2018 End: 10-12-2018 Assay of ethanol Yovani Mejias [employer] Work Phone: Start: 10-12-2018 End: 10-12-2018 Assay of ferritin Yovani Mejias [employer] Work Phone: Start: 10-12-2018 End: 10-12-2018 Assay of iron Yovani Mejias [employer] Work Phone: Start: 10-12-2018 End: 10-12-2018 Assay of parathormone Yovani Orr Work Phone: Start: 10-12-2018 End: 10-12-2018 Assay of phosphatase alkaline Yovani Orr Work Phone: Start: 10-12-2018 End: 10-12-2018 Bilirubin total Yovani [employer] Work Phone: Start: 10-12-2018 End: 10-12-2018 Calcium total Yovani Orr Work Phone: Start: 10-12-2018 End: 10-12-2018 CBC, EDIF, PLATELET Yovani Mejias [employer] Work Phone: Start: 10-12-2018 End: 10-12-2018 Creatinine blood Yovani Orr Work Phone: Start: 10-12-2018 End: 10-12-2018 Drug screening cannabinoids natural Yovani Orr Work Phone: Start: 10-12-2018 End: 10-12-2018 Hepatitis a antibody haab Yovani Orr Work Phone: Start: 10-12-2018 End: 10-12-2018 Hepatitis b core antibody hbcab total Yovani Orr Work Phone: Start: 10-12-2018 End: 10-12-2018 Hepatitis b surf antibody hbsab Yovani [employer] Work Phone: Start: 10-12-2018 End: 10-12-2018 Hepatitis c antibody Yovani [employer] Work Phone: Start: 10-12-2018 End: 10-12-2018 Iaad ia hepatitis b surface antigen Yovani [employer] Work Phone: Start: 10-12-2018 End: 10-12-2018 Iaad ia hiv-1 ag w/hiv-1 & hiv-2 antbdy single Yovani [employer] Work Phone: Start: 10-12-2018 End: 10-12-2018 PSA screening Yovani Mejias [employer] Work Phone: Start: 10-12-2018 End: 10-12-2018 Thromboplastin [...] liver recipient Liver trans plant recipient Daisha Tray Sobotka DO Work Phone: H/O: liver recipient [...] renal transplant Dece ased-donor kidney transplant recipient tSeve MORENOBS Work Phone: Plan of Treatment Date Care Activity Detail Author Start: 09-20-2029 Screening for malignant neoplasm of colon [facility] Start: 01-23-2025 Potassium [Moles/volume] in Serum or Plasma POTASSIUM [facility] Start: 08-31-2024 Screening for malignant neoplasm of lung [facility] Start: 06-17-2024 End: 06-17-2024 ambulatory [facility] Start: 06-17-2024 End: 06-17-2024 Patient encounter procedure [facility] Start: 03-22-2024 Fasting lipid profile LIPID SCREENING [facility] Start: 03-22-2024 Lipid panel [facility] Start: 02-26-2024 End: 02-26-2024 Patient encounter procedure 02/26/2024 9:30 AM EDT Office Visit [facility] [address] [place] [phone] Candie Almaguer MD [address] [place] [phone] [facility] Start: 02-11-2024 End: 02-11-2024 Patient encounter procedure 02/11/2024 10:30 AM EDT Office Visit [facility] [address] [place] [address] Zuly Bruno NP [address] [place] [address] [facility] Start: 02-09-2024 End: 02-09-2024 Telemedicine consultation with patient 02/09/2024 3:30 PM EDT Telemedicine Infectious Diseases Care [facility] [address] [place] [phone] Hakeem Alamo MD [address] [place] [address] [facility] Start: 01-15-2024 End: 01-15-2024 ambulatory [facility] Start: 01-15-2024 End: 01-15-2024 Patient encounter procedure [facility] Start: 01-06-2024 End: 01-06-2026 Echocardiogram 2D complete Echocardiogram 2D complete Echocardiography Routine DARLENE (obstructive sleep apnea) Primary hypertension (CMS/HCC) Bilateral lower extremity edema Shortness of breath Expected: 01/06/2024 (Approximate), Expires: 01/06/2026 [facility] Work Phone: Comment on above: Expected: 01/06/2024 (Approximate), Expi res: 01/06/2026 Start: 01-06-2024 End: 01-06-2024 Patient encounter procedure 01/06/2024 9:00 AM EST Office Visit [facility] [address] [place] [phone] Zuly Bruno NP [address] [facility] [place] [phone] [facility] Start: 12-08-2023 End: 09-07-2024 CT Chest WO contrast [facility] Work Phone: Start: 12-01-2023 COVID-19 VACCINE (2 - Moderna risk series) COVID-19 VACCINE (2 - Moderna risk series) [facility] Start: 09-23-2023 End: 09-23-[address] [facility] Start: 09-23-2023 End: 09-23-2023 Telemedicine consultation with patient 09/23/2023 4:00 PM EDT Telemedicine Infectious Diseases Care [facility] [address] [place] [phone] Hakeem Alamo MD [address] [place] [address] [facility] Start: 09-15-2023 End: 09-10-2024 ITRACONAZOLE LEVEL [facility] Start: 08-25-2023 End: 08-25-2024 ALLOSCREEN RECIPIENT (POST TX PRA) ALLOSCREEN RECIPIENT (POST TX PRA) Lab Routine Kidney replaced by transplant Aftercare following organ transplant Immunosuppressed status High risk medication use Other general symptoms and signs Abnormal blood chemistry Expected: 08/25/2023, Expires: 08/25/2024 [facility] Comment on above: Expected: 08/25/2023, Expires: Start: 07-31-2023 Influenza vaccination [facility] Start: 06-12-2023 End: 06-12-2023 Patient encounter procedure 06/12/2023 Office Visit Transplant Surgery Steve Latham MBBS [address] [place] [address] [facility] Start: 03-11-2023 End: 03-11-2023 Telemedicine consultation with patient 03/11/2023 Telemedicine Urology Ryan Yepez MD [address] [facility] [address] [place] [address] [facility] Start: 01-16-2023 End: 01-16-2023 Patient encounter procedure 01/16/2023 Office Visit Transplant Surgery [facility] Start: 10-31-2022 End: 10-31-2022 Patient encounter procedure 10/31/2022 Office Visit Transplant Surgery Steve Latham MBBS [address] [place] [address] [facility] Start: 09-10-2022 End: 09-10-2023 PSA screening PSA, SCREENING Lab Routine BPH with obstruction/lower urinary tract symptoms Encounter for screening for malignant neoplasm of prostate Expected: 09/10/2022 (Approximate), Expires: 09/10/2023 [facility] Comment on above: Expected: 09/10/2022 (Approximate), Expi res: 09/10/2023 Start: 08-11-2022 End: 08-11-2022 Patient encounter procedure 08/11/2022 Office Visit Urology Ryan Yepez MD [address] [facility] [address] [place] [address] [facility] [place] Start: 07-31-2022 Influenza vaccination [facility] Start: 07-07-2022 End: 07-07-2022 Patient encounter procedure 07/07/2022 Office Visit Urology Ryan Yepez MD [address] [facility] [address] [place] [address] [facility] Start: 07-07-2022 End: 07-07-2023 FLUORO IMAGING FOR UROLOGY [facility] Comment on above: Expected: 07/07/2022, Expires: 3 1 Occurrences starti ng 07/07/2022 until 07/07/2022 Start: 06-27-2022 End: 06-27-2022 Patient encounter procedure 06/27/2022 Office Visit Urology Ryan Yepez MD [address] [facility] [address] [place] [address] [facility] Start: 06-27-2022 End: 06-27-2023 Basic metabolic 2000 panel - Serum or Plasma BASIC METABOLIC PANEL Lab Routine Other hydronephrosis Expected: 06/27/2022, Expires: 06/27/2023 [facility] Comment on above: Expected: 06/27/2022, Expires: 3 Start: 06-27-2022 End: 06-27-2022 Patient encounter procedure 06/27/2022 Appointment Computerized Tomography Scan Ryan Yepez MD [address] [facility] [address] [place] [address] Department of Radiology Start: 06-15-2022 End: 05-16-2023 CT Abdomen and Pelvis WO contrast CT ABDOMEN/PELVIS WITHOUT CONTRAST Imaging Routine FAYE (acute kidney injury) Expected: 06/15/2022 (Approximate), Expires: 05/16/2023 [facility] Work Phone: Comment on above: Expected: 06/15/2022 (Approximate), Expi res: 05/16/2023 Start: 06-12-2022 End: 06-12-2022 Patient encounter procedure 06/12/2022 Office Visit Transplant Surgery Steve Latham MBBS [address] [place] [address] [facility] Start: 06-11-2022 End: 06-11-2023 BK VIRUS DNA QN, PCR, PLASMA BK VIRUS DNA QN, PCR, PLASMA Lab Routine Kidney replaced by transplant Liver replaced by transplant Abnormal blood chemistry Expected: 06/11/2022, Expires: 06/11/2023 [facility] Comment on above: Expected: 06/11/2022, Expires: Start: 06-04-2022 End: 06-04-2022 Patient encounter procedure 06/04/2022 Office Visit [facility]iology [facility] Start: 10-18-2021 End: 10-18-2021 Patient encounter procedure 10/18/2021 Office Visit Transplant Surgery Steve Latham MBBS [address] [place] [address] [facility] Start: 07-31-2021 Influenza vaccination INFLUENZA VACCINE (#1) [facility] Start: 07-26-2021 End: 07-26-2021 Patient encounter procedure 07/26/2021 Office Visit Transplant Surgery [facility] Start: 2021 Prostate specific antigen measurement [facility] Start: 2021 Screening for malignant neoplasm of lung LUNG CANCER SCREENING [facility] Start: 2021 Zoster vaccine hzv live for subcutaneous use ZOSTER (SHINGLES) VACCINE (1 of 2) [facility] Start: 09-20-2020 Colonoscopy COLORECTAL CANCER SCREENING DISCUSSION [facility] Start: 09-20-2020 Screening for malignant neoplasm of colon [facility] Start: 07-31-2019 Influenza vaccination Flu vaccine (#1) [place], [place] Start: 05-22-2019 Annual Wellness Visit (AWV) Annual Wellness Visit (AWV) [place] Start: 04-18-2019 End: 10-19-2019 Ultrasonography of abdomen US ABDOMEN RUQ/LIVER/GB Routine Cirrhosis of liver without ascites, unspecified hepatic cirrhosis type Expected: 04/18/2019 (Approximate), Expires: 10/19/2019 [facility] Work Phone: Comment on above: Expected: 04/18/2019 (Approximate), Expi res: 10/19/2019 Start: 01-25-2019 End: 01-25-2019 Ambulatory 01/25/2019 Office Visit Gastroenterology Christin Elizabeth, DOCUMENT MANAGEMENT TECHNICIAN-SAND SCREENER OPERATOR [address] [place] [address] Division of Gastroenterology and Hepatology Gavin [...] for liver transplant Expected: 10/12/2018, Expires: 10/12/2019 [facility] Work Phone: Comment on above: Expected: 10/12/2018, Expires: 9 Start: 10-12-2018 End: 10-12-2019 TYPE AND SCREEN - NOT FOR TRANSFUSION TYPE AND SCREEN - NOT FOR TRANSFUSION Routine Alcoholic cirrhosis, unspecified whether ascites present Pre-transplant evaluation for liver transplant Expected: 10/12/2018, Expires: 10/12/2019 [facility] Work Phone: Comment on above: Expected: 10/12/2018, Expires: Start: 07-31-2018 Influenza vaccination INFLUENZA VACCINE (#1) [facility] Work Phone: Start: 2011 Fasting lipid profile LIPID SCREENING [facility] Work Phone: Start: 2011 Lipid screen Lipid screen [place], [place] Start: 1990 DTaP/Tdap/Td vaccine (1 - Tdap) DTaP/Tdap/Td vaccine (1 - Tdap) [place], [place] Start: 1990 Hepatitis B vaccination HEP B VACCINE (1 of 3 - 19+ 3-dose series) [facility] Start: 1990 Hepatitis B Vaccine (1 of 3 - Risk Recombivax 3-dose series) Hepatitis B Vaccine (1 of 3 - Risk Recombivax 3-dose series) [place], [place] Start: 1990 Third diphtheria, tetanus and acellular pertussis (DTaP) vaccination [facility] Start: 1990 Zoster vaccine hzv live for subcutaneous use ZOSTER (SHINGLES) VACCINE (1 of 2) [facility] Start: 1990 [facility] Start: 1989 Tetanus vaccination TETANUS [facility] Start: 1986 HIV screen HIV screen [place], [place] Start: 02-17-1984 HIV screening HIV SCREENING DISCUSSION [facility] Work Phone: Start: 1983 COVID-19 VACCINE (1) COVID-19 VACCINE (1) [facility] Start: 1982 DTaP/Tdap/Td vaccine (1 - Tdap) DTaP/Tdap/Td vaccine (1 - Tdap) [place], [place] Start: 1977 Pneumococcal 0-64 years Vaccine (1 of 3 - PCV13) Pneumococcal 0-64 years Vaccine (1 of 3 - PCV13) [place] Start: 1977 PNEUMOCOCCAL VACCINE SERIES (1 - PCV) PNEUMOCOCCAL VACCINE SERIES (1 - PCV) [facility] Start: 1977 PNEUMOCOCCAL VACCINE SERIES (1 of 2 - PCV) PNEUMOCOCCAL VACCINE SERIES (1 of 2 - PCV) [facility] Start: 1977 [facility] Start: 02-17-1976 COVID-19 VACCINE (#1) COVID-19 VACCINE (#1) [facility] Start: 02-17-1976 [facility] Start: 1971 COVID-19 VACCINE (#1) COVID-19 VACCINE (#1) [facility] Start: 1971 Hepatitis B vaccination HEP B VACCINE (1 of 3 - 3-dose series) [facility] Start: 1971 Medicare Annual Wellness (AWV) Medicare Annual Wellness (AWV) [facility] Start: 1971 Screening for malignant neoplasm of colon [facility] Start: 1971 Tetanus vaccination [facility] BK VIRUS DNA QN, PCR , PLASMA BK VIRUS DNA QN, PCR, PLASMA Lab Routine Kidney replaced by transplant Liver replaced by transplant Abnormal blood chemistry 06/12/2022 3:38 PM EDT [facility] CALCULI, URINARY (KIDNEY STONE) CALCULI, URINARY (KIDNEY STONE) Fluids Routine 05/19/2022 8:16 AM EDT [facility] Work Phone: CANNABINOIDS, QUANT (URINE)THC CONFIRMATION CANNABINOIDS, QUANT (URINE)THC CONFIRMATION Routine Alcoholic cirrhosis, unspecified whether ascites present ESRD (end stage renal disease) on dialysis Pre-transplant evaluation for liver transplant 10/12/2018 12:57 PM [facility] Work Phone: End: 09-10-2024 CHEM 6 (LYTES, BUN CREA) [facility] EBV VCA IGG AB EBV VCA IGG AB R outine Alcoholic cirrhosis, unspecified whether ascites present ESRD (end stage renal disease) on dialysis Pre-transplant evaluation for liver transplant 10/12/2018 12:57 PM [facility] Work Phone: Fungus identified in Unspecified specimen by Culture [facility] HLA TYPING (SOLID ORGAN) HLA TYPING (SOLID ORGAN) Routine Alcoholic cirrhosis, unspecified whether ascites present ESRD (end stage renal disease) on dialysis Pre-transplant evaluation for liver transplant 10/12/2018 12:57 PM [facility] Work Phone: HSV 1 AND 2 IGG ANTIBODY HSV 1 AND 2 IGG ANTIBODY Routine Alcoholic cirrhosis, unspecified whether ascites present ESRD (end stage renal disease) on dialysis Pre-transplant evaluation for liver transplant 10/12/2018 12:57 PM [facility] Work Phone: 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 specific culture [facility] PLACEMENT NEPHROSTOM Y CATHETER PERCUTANEOUS W/ IMAGE GUIDANCE PLACEMENT NEPHROSTOMY CATHETER PERCUTANEOUS W/ IMAGE GUIDANCE Imaging Routine Hydronephrosis due to obstruction of ureteral orifice FAYE (acute kidney injury) 05/17/2022 11:08 AM EDT [facility] UT POST VOID RESIDUAL UT POST VO ID RESIDUAL UT - OFFICE PERFORMED Routine BPH with obstruction/lower urinary tract symptoms Ordered: 09/10/2022 [facility] Comment on above: Ordered: 09/10/2022 PTH INTACT PTH INTACT Routi ne Alcoholic cirrhosis, unspecified whether ascites present ESRD (end stage renal disease) on dialysis Pre-transplant evaluation for liver transplant 10/12/2018 12:57 PM [facility] Work Phone: RUBEOLA IGG AB (IMMU NE STATUS) RUBEOLA IGG AB (IMMUNE STATUS) Routine Alcoholic cirrhosis, unspecified whether ascites present ESRD (end stage renal disease) on dialysis Pre-transplant evaluation for liver transplant 10/12/2018 12:57 PM [facility] Work Phone: End: 01-16-2024 Standard ECG ECG ECG Routine One Time for 1 Occurrences starting 01/16/2024 until 01/16/2024 [facility] Comment on above: One Time for 1 Occurrences starting 12/31 until 01/16/2024 End: 09-10-2024 TACROLIMUS LEVEL, TROUGH (PRE DRUG LEVEL) [facility] VARICELLA IGG AB (IM M STATUS) VARICELLA IGG AB (IMM STATUS) Routine Alcoholic cirrhosis, unspecified whether ascites present ESRD (end stage renal disease) on dialysis Pre-transplant evaluation for liver transplant 10/12/2018 12:57 PM EST [facility] Work Phone: Immunizations Immunization Date Immunization Notes Care Provider Fa cility 11-03-2023 influenza virus vacc ine, unspecified formulation Generic Provider [facility] 11-03-2023 Moderna SARS-CoV-2 50mcg/0.5mL Booster Generic Provider [facility] Payers Date Payer Category Payer Unknown [id number] 2019 Unknown [facility] [id number] 2019-Present [id number] 2018 Medicaid MEDICAID [facility] CAID [facility] DEPT OF JOB xxxxxxxxxxxx 2018-Present [phone] [address] [place] [address] xxxxxxxxxxxx [id number] [id number] 2018 Medicaid MEDICAID MEDICAI D [id number] 2018-Present [address] [place] [address] [id number] .[id number] 2018 Medicaid [id number] [id number] .[id number] 2018 Medicare MEDICARE MEDICAR E PART A AND B xxxxxxxxxxx 2018-Present [phone] [place] [address] xxxxxxxxxxx [id number] .[id number] 2018 Medicare [id number] 2018 Medicare MEDICARE MEDICAR E A AND B [id number] 2018-Present [address] [place] [address] [id number] .[id number] 2018 Medicare [id number]. 1.13.172.2.7.3 .907263.315 1971 Unknown [id number] 2.16.840.1.532207.3.579.2.173 1971 Unknown [id number] 2.16.840.1.647590.3.579.2.173 1971 Unknown [id number] 2.16.840.1.766390.3.579.2.173 1971 Unknown [id number] 2.16.840.1.323323.3.579.2.173 1971 Unknown [id number] 2.16.840.1.002060.3.579.2.173 1971 Unknown [id number] 2.16.840.1.609830.3.579.2.173 1971 Unknown [id number] 2.16.840.1.573286.3.579.2.173 1971 Unknown [id number] 2.16.840.1.010937.3.579.2.173 1971 Unknown [id number] 2.16.840.1.542692.3.579.2.647 1971 Unknown [id number] 2.16.840.1.586929.3.579.2.593 1971 Unknown [id number] 2.16.840.1.174635.3.579.2.593 1971 Unknown [id number] 2.16.840.1.404478.3.579.2.593 1971 Unknown [id number] 2.16.840.1.366270.3.579.2.593 1971 Unknown [id number] 2.16.840.1.824115.3.579.2.593 1971 Unknown [id number] 2.16.840.1.717374.3.579.2.593 1971 Unknown [id number] 2.16.840.1.099936.3.579.2.593 1971 Unknown [id number] 2.16.840.1.067695.3.579.2.593 1971 Unknown [id number] .16.840.1.250761.3.579.2.593 1971 Unknown [id number] 2.16.840.1.606233.3.579.2.593 1971 Unknown [id number] .840.1.879117.3.579.2.593 1971 Unknown [id number] 2.16.840.1.731484.3.579.2.593 1971 Unknown [id number] ..840.1.849176.3.579.2.593 1971 Unknown [id number] .16.840.1.581583.3.579.2.593 1971 Unknown [id number] 2.16840.1.853638.3.579.2.593 1971 Unknown [id number] .16.840.1.365847.3.579.2.594 1971 Unknown [id number] .16.840.1.963254.3.579.2.594 1971 Unknown [id number] 2.16.840.1.907187.3.579.2.594 1971 Unknown [id number] .16.840.1.368314.3.579.2.594 1971 Unknown [id number] 2.16.840.1.327026.3.579.2.594 1971 Unknown [id number] 2.16.840.1.762711.3.579.2.594 1971 Unknown [id number] 2.16.840.1.872902.3.579.2.594 1971 Unknown [id number] 2.16.840.1.958342.3.579.2.594 1971 Unknown [id number] 2.16.840.1.625313.3.579.2.594 1971 Unknown [id number] 2.16.840.1.665268.3.579.2.125 9 1971 Unknown [id number] 2.16.840.1.550399.3.579.2.125 9 1971 Unknown [id number] 2.16.840.1.480883.3.579.2.125 9 1959 Medicaid [id number] 1958 Medicare [id number] Social History Date Type Detail Facility Start: 07-19-2018 End: 10-19-2018 Tobacco smoking status NHIS Former smoker [facility] Start: 07-19-1988 End: 05-14-2018 History of tobacco use Current smoker [facility] Work Phone: Start: 07-19-1988 End: 05-14-2018 History of tobacco use Cigarette Smoker [facility] Work Phone: Start: 10-19-2018 End: 09-26-2023 Cigarettes smoked current (pack per day) - Reported [facility] End: 07-19-1994 History of tobacco use Chews Tobacco [facility] Work Phone: Start: 1970 Sex Assigned At Not on file [facility] Work Phone: Start: 11-03-2018 Alcohol intake Current non-drinker of alcohol (finding) [place] Start: 06-22-2018 Alcohol Comment Hx of alcoholism [place] Start: 11-03-2018 End: 09-26-2023 Alcohol intake No [facility] Start: 07-19-2018 Tobacco use and exposure Former user [facility] Start: 09-06-2020 End: 09-26-2023 Alcohol intake Ex-drinker (finding) [facility] Start: 07-19-2018 Alcohol Comment stopped 05/14/2018 [facility] Start: 05-05-2022 End: 01-16-2023 Exposure to SARS-CoV-2 (event) Not sure [facility] Start: 07-07-2018 Gender identity Identifies as male gender (finding) [facility] Start: 01-16-2022 Sexual orientation Heterosexual (finding) [facility] Start: 11-03-2023 Tobacco use and exposure Smokeless [...] Dates [id number] Start: 05-23-2020 [id number] Start: 04-12-2020 [id number] [facility] Start: 05-17-2022 Comment on above: Description: Implant time-out completed by intra-procedural staff including this RN, biometrics technician, and performing physician. The following was [...] understanding on picking [facility] as listed on discharge summary. Patient denies any unanswered questions at this time. Patient has been discharged with all of their belongings, transported via wheelchair on oxygen to front entrance for brother to transport home on home oxygen supply. [facility] 01-23-2024 Miscellaneous Notes Jakob wrap & [...] understanding on picking up needed prescriptions at [facility] pharmacy as listed on discharge summary. Patient [...] Pain): verbalization of pain descriptors George Styles ([id number]) PRE OPERATIVE DIAGNOSIS High output congestive heart failure [I50.83] POST OPERATIVE DIAGNOSIS Post-Op Diagnosis Codes: * High output congestive heart failure [I50.83] PROCEDURE PERFORMED Procedure(s) (LRB): LIGATION ANGIOACCESS AVF (Left) Resection of large aneurysmic vein PRIMARY CLOSURE Yes INTRAOPERATIVE FINDINGS No significant abnormalities SURGEON Surgeons and Role: * Jyoti Bryant MD, PhD - Primary ANESTHESIOLOGIST Anesthesiologist: Celena Tiwari MD; Kehinde Gutierrez MD SECURITY PROFESSIONALS: David Jasso APRN-SECURITY PROFESSIONALS Hospitality Team Member Assisting: Mini Khan MD SURGICAL STAFF Welder And Fitter: Zoila Alexander RN Relief Welder And Fitter: Marimar Saravia RN Relief Scrub: Briseyda Self [...] patent, patient breathing easily. Report received from certified surgical technologist and report received from anesthesiology. Pt arrived [...] Axillary block. SURGEON(S): Jyoti Bryant MD, PHD PATTERN CARRIER: Mynor Fall MD ESTIMATED BLOOD LOSS: Minimal. [...] Jyoti Bryant MD, PHD ATTENDING SHANNON/Constanza JOB: [id number] DOC: [id number] Patient has been asleep this shift. He [...] overnight coverage, Jasper Gastelum MD, via pager #[phone] Pt- George Styles. Sarah 1082. TM1. Was wondering if he can have his Melatonin order increased to 6mg. Per pt, he usually takes 8mg at home. -SAMI Duffy #[phone] Tati Charles RN Internal Medicine Daily Progress Note Patient: George Styles, 1970, [id number] Physician: Arelis Mera MD, PGY3, Pager #[phone], TM1 service Assessment/Plan: George Styles is a [...] Mera MD Mr. Styles was admitted to [address] [place] [address]. On admission to [facility], from outside facility a dual RN initial assessment of skin condition was performed by Izzy Gutierrez RN and Leroy Singleton RN. Skin Assessment: Skin within defined limits:Yes Jose Score: 20 Wound Vision Rescue Boat Operator images obtained: No LDA Added: No Based [...] when available. documented in this encounter [facility] 01-23-2024 Nurse Note Home Oxygen Qualification [...] at 4L of oxygen is also required.) [facility] 01-23-2024 History of Present illness [...] mg Oral Daily Kelvin Pacheco MD, MBBS assistant professor of german Transplant nephrology Surgery Post-Op Check Note George A Jensen is a 53 y.o. yr old male, [...] monitor Leonel Harris DO General Surgery Pager [phone] CM went to bedside to talk with patient. Patient states he has home oxygen through [employer]. He uses 2.5 LNC around the clock. Patient states his brother will bring a tank for discharge. Anticipate patient will discharge tomorrow AM. Brother updated. Girish Oro RN, BSN Clinical Machine Assembler For Puller Over Please note that I am a float shelter case manager and may not cover the same service every day. Please call the main Case Management office at [phone] for up-to-date coverage. Verified patients identity using [...] Daily Progress Note Patient: George Styles, 1970, [id number] Physician: Yury Ozuna MD, PGY1, Pager #[phone], MW3 service Assessment/Plan: George Styles is a 53 y.o. 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 - continue home aspirin 81mg [...] with the Nutrition plan outlined in the Surgical Garment Assembler s note. DVT prophylaxis with lovenox Diet [...] Doppler US LUE AVF: Associated attestation - Kelvin Pacheco MD, LU - 01/21/2024 4:20 PM EST Patient seen and examined at bedside today during multidisciplinary rounds with medicine residents and pharmacy, charts reviewed, laboratory parameters reviewed. Agree with plan of care as mentioned in resident note. Kelvin Pacheco MD, MBBS assistant professor of german Transplant nephrology Patient seen and examined at [...] mg Oral BID AC Kelvin Pacheco MD, JOSHBS assistant professor of german Transplant nephrology Images from the original note were not included. Internal Medicine Daily Progress Note Patient: George Styles, 1970, [id number] Physician: Yury Ozuna MD, PGY1, Pager #[phone], TM1 service Assessment/Plan: George Styles is a [...] home amlodipine 5mg CAD: non-obstructive CAD on [facility] 2018. - continue home aspirin 81mg [...] with the Nutrition plan outlined in the Surgical Garment Assembler s note. DVT prophylaxis with lovenox Diet [...] (01/20 611) Ptt/Pt/Inr: 30.6/15.5/1.2 (01/20 611) Doppler US AMIE SUTTONF: Associated attestation - Kelvin Pacheco MD, MBBS - 01/21/2024 1:50 PM EST Please see my note from today for additional detail Summary: Pharmacy Med Rec Department of Pharmacy Admission Medication Reconciliation Note Patient: George Styles [facility] The patient's allergies have been reviewed with [...] Refills: 0 Provider: Zuly Bruno NP [facility] [place] Comments: Patient reported his Last Home Dose of mycophenolate and tacrolimus was on 01/15/24 at 0700. Medications that need removed from Outside Medication Reconciliation list: Please remove all medications. Please feel free to contact me with any further questions. Name: Heidy Chatman Phone #: [phone] Date/Time: 01/19/2024 12:08 PM Time Spent: 15 minutes Associated attestation - Melania Alarcon RP - 01/19/2024 12:41 PM EST Department of Pharmacy Admission Medication Reconciliation Note Patient: George Styles Room/Bed: 1082/A I have reviewed the home medication list with the Drying Rack Changer. The home medication list status is: complete. All changes to the home medication list have been updated in [facility]. Updated PRINT DECORATOR Med List: Prior to Admission Medications Prescriptions [...] me with any further questions. Name: Melania Ortiz Alarcon, [facility] Phone #: [phone] Date/Time: 01/19/2024 12:41 PM Internal Medicine Daily Progress Note Patient: George Styles, 1970, [id number] Physician: Yury Ozuna MD, PGY1, Pager #[phone], JD8 service Assessment/Plan: Acute Hypoxic Respiratory Insufficiency GARCIA, [...] home amlodipine 5mg CAD: non-obstructive CAD on [facility] 2018. - continue home aspirin 81mg [...] with the Nutrition plan outlined in the Surgical Garment Assembler s note. DVT prophylaxis with lovenox Diet [...] today, obtain fistula duplex US. Objective: Vitals: 01/19/24899 BP: Pulse: 55 Resp: Temp: SpO2: 97% [...] Na/K+/Phos/Mg/Ca: 140/3.8/--/1.8/-- (01/19 616) Bun/Creat/Cl/CO2/Glucose: 16/1.13/106/24/86 (01/19 616) Associated attestation - Kelvin Pacheco MD, LU [...] mg Oral Daily Kelvin Pacheco MD, MBBS assistant professor of german Transplant nephrology Internal Medicine Daily Progress Note Patient: George Styles, 1970, [id number] Physician: Yury Ozuna MD, PGY1, Pager #[phone], TM1 service Assessment/Plan: Updates: - continued diuresis [...] home amlodipine 5mg CAD: non-obstructive CAD on [facility] 2018. - continue home aspirin 81mg [...] with the Nutrition plan outlined in the Surgical Garment Assembler s note. DVT prophylaxis with lovenox Diet [...] in resident note. Kelvin Pacheco MD, LU assistant professor of german Transplant nephrology Pt known to realty specialist from previous admissions. Provided emotional and spiritual support. Patient shared about: family support, medical course Log Chipper provided: - Supportive presence - Active listening - Validation of feelings/emotions Patient encouraged to request a realty specialist as needed. Chaplains are available in-house 24 hours a day and 7 days a week. For urgent matters in [facility], please page [phone]. If the request is not urgent, please enter a consult. Consults are responded to within 24 hours. Senior Staff Log Chipper Angie Singh Mdiv, [facility] [place] [phone] [email or web address] On-call TYLOR: square dance caller David: 22/06 Pager ,BS, and Brock Hernandez Pager [phone] 01/18/24 1342 Clinical Encounter Type Visited With Patient Visit Type Introduction Pastoral Time Spent 15 min Referral Other (See Comment) (rounding) Spiritual Assessment Emotional Observation Coping well;Anxiety Hope Observation Specific hope focus Support Observation By Family Interventions Provided Active listening;Supportive presence Facilitated Verbalization of feelings;Identifying support system;Identifying Sources of spiritual well-being Explored Expectations;Treatment decisions Diagnostic Assistant Education Diagnostic Assistant Service Available Yes Educated Patient Outcomes [...] interaction. Name: Melania Alarcon RPH Phone #: [phone] Date/Time: 01/18/2024 9:56 AM Discharge Planning Patient [...] Yes Name and Contact information: Gian Styles ([phone]) Would you like to add additional adult [...] oxygen?: Yes Oxygen Provider and Contact : Valmarc Liter-Flow?: Order for oxygen use?: unknown at [...] Is the patient on Anticoagulation? : No [id number] [place] [address] - [address] [id number] Communications Systems Engineer Does the patient or car sales representative express financial concerns? : No [...] Plan 1. Identified self and role as Machine Assembler For Puller Over. 2. Confirmed and updated demographics and treatment team. 3. Machine Assembler For Puller Over will continue to follow with medical team for any other additional discharge needs. Kasandra DON RN [facility] [phone] *Please note I am float CM and work Thursday and Thursday every other week. Please call [phone] for assist in my absence. Internal Medicine Daily Progress Note Patient: George Styles, 1970, [id number] Physician: Yury Ozuna MD, PGY1, Pager #[phone], TM1 service Assessment/Plan: Updates: - continue diuresis [...] home amlodipine 5mg CAD: non-obstructive CAD on [facility] 2018. - continue home aspirin 81mg [...] Finally, ordered 2D echo. Kevin Sage MD, MADISONN Reactor Fueling Supervisor of Clinical Medicine [facility] documented in this encounter [facility] 01-23-2024 Plan of care note [...] Symptoms (Acute Pain): verbalization of pain descriptors [facility] 01-22-2024 Hospital Discharge instructions Arelis [...] your doctor for further instructions. Please call [phone], Option 1 or [phone] to schedule your appointment with the Heart Failure Clinic. Arelis Mera MD - 01/22/2024 3:08 PM EST You can change your dressing 48 hours from the procedure The following attachments cannot be sent through Care Everywhere.Heart Failure: Avoiding Triggers (Trinidadian)Heart Failure: Limiting Sodium (Trinidadian)Pain and Pain Control ([facility]) (Trinidadian)documented in this encounter [facility] 01-22-2024 Surgery Postoperative evaluation and management note George Styles ([id number]) PRE OPERATIVE DIAGNOSIS High output congestive heart failure [I50.83] POST OPERATIVE DIAGNOSIS Post-Op Diagnosis Codes: * High output congestive heart failure [I50.83] PROCEDURE PERFORMED Procedure(s) (LRB): LIGATION ANGIOACCESS AVF (Left) Resection of large aneurysmic vein PRIMARY CLOSURE Yes INTRAOPERATIVE FINDINGS No significant abnormalities SURGEON Surgeons and Role: * Jyoti Bryant MD, PhD - Primary ANESTHESIOLOGIST Anesthesiologist: Celena Tiwari MD; Kehinde Gutierrez MD SECURITY PROFESSIONALS: David Jasso APRN-SECURITY PROFESSIONALS Hospitality Team Member Assisting: Mini Khan MD SURGICAL STAFF Welder And Fitter: Zoila Alexander RN Relief Welder And Fitter: Marimar Saravia RN Relief Scrub: Briseyda Self Scrub Person: Cinda Mai RN Resident Assisting: Leonel Harris DO Fellow: Miki Mcgowan MD, MBBS COMPLICATIONS None ESTIMATED BLOOD LOSS Minimal SPECIMENS No specimen sent * No specimens in log * Jyoti Bryant MD, PhD January 22, 2024 1:34 PM [facility] Work Phone: 01-22-2024 Nurse Note Arrived to PACU assisted by anesthesiology. Connected to monitors. Turned side to side, OR linens removed, repositioned. Airway patent, patient breathing easily. Report received from certified surgical technologist and report received from anesthesiology. Pt arrived awake. VSS. Sats slightly low. Pulm rehab used. Sats currently 3lpm @ 93%. Pt states he uses CPAP nocturnally. A&Ox4. Nerve block left arm, elevated. [facility] 01-22-2024 Surgery Postoperative evaluation and management [...] Axillary block. SURGEON(S): Jyoti Bryant MD, PHD PATTERN CARRIER: Mynor Fall MD ESTIMATED BLOOD LOSS: Minimal. [...] Jyoti Bryant MD, PHD ATTENDING SHANNON/Constanza JOB: [id number] DOC: [id number] [facility] 01-22-2024 Plan of care note Patient has been asleep this shift. He continues to deny pain and has been NPO since midnight in preparation of this ligation today. He has his call light in reach and his bed remains low and locked. Problem: Patient Care Overview Goal: Plan of Care Review Outcome: Progressing Flowsheets Taken 01/22/2024 0655 Progress: improving Taken 01/21/20241939 Plan Of Care Reviewed With: patient [facility] 01-20-2024 Consult note Associated Order (s): IP CONSULT TO SURGERY - TRANSPLANT (RENAL) Images from the original note were not included. TRANSPLANT SURGERY CONSULT NOTE: Consult: 01/20/2024, 4:03 PM Drawing Supervisor: Starla Morris MD Reason for Consult: Requesting Dr Carson Bryant for AVF revision/closure given new onset high output heart failure George Styles is a 53 y.o. male CURRENT HOSPITALIZATION LOS: Admit Date: 01/16/2024 [facility] Hospital LOS: 4 days George Styles [...] DAY SURGERY MAIN OR KIDNEY TRANSPLANT W/O CROW CREEK NEPHRECTOMY N/A 04/12/2020 Laterality: N/A; Surgeon: LU Palma; Location: [facility] SAME DAY SURGERY MAIN OR [...] Timothy Joseph MD 5 mg at 01/17/24 08 aspirin chewable tablet 81 mg 81 mg [...] bid Timothy Joseph MD 360 mg at 01/20/2418 Ondansetron 4mg/2ml (ZOFRAN) injection 4 mg 4 [...] 1015 -- 2 Hemodialysis Peripheral AV Access 04/09/20138 HEMODIALYSIS USE ONLY;Hemodialysis 04/09/20 013 -- 1381 Fluid Management (24hrs): Intake/Output last [...] Studies: Labs-CBC: WBC/Hgb/Hct/Plts: 3.79/12.5/38.9/166 (01/20 611) Labs-Chem 7([facility]): Bun/Creat/Cl/CO2/Glucose: 15/1.12/105/28/88 (01/20 611) Na/K+/Phos/Mg/Ca: 141/3.8/--/1.6/-- (01/20 611) Labs-Coags: Ptt/Pt/Inr: 30.6/15.5/1.2 (01/20 0611) ASSESSMENT/PLAN: George Styles is a 53 y.o. [...] seen and staffed with Dr. Mcgowan fellow manager commission Thank you, Starla Morris MD Associated attestation - Jyoti Bryant MD, PhD - 01/22/2024 10:54 AM EST I. Jyoti Bryant MD, PhD, have independently seen and examined the patient, reviewed the labs, discussed the patient with the fellow/resident and agree with the note. [facility] Work Phone: 01-20-2024 Consult note Associated Order (s): IP CONSULT TO SURGERY - TRANSPLANT (RENAL) Images from the original note were not included. TRANSPLANT SURGERY CONSULT NOTE: Consult: 01/20/2024, 4:03 PM Drawing Supervisor: Starla Morris MD Reason for Consult: Requesting Dr Carson Bryant for AVF revision/closure given new onset high output heart failure George Styles is a 53 y.o. male CURRENT HOSPITALIZATION LOS: Admit Date: 01/16/2024 [facility] Hospital LOS: 4 days George Styles [...] DAY SURGERY MAIN OR KIDNEY TRANSPLANT W/O CROW CREEK NEPHRECTOMY N/A 04/12/2020 Laterality: N/A; Surgeon: LU [...] Timothy Joseph MD 81 mg at 01/20/24 0918 Enoxaparin Sodium (LOVENOX) injection 40 mg 40 [...] Arelis Mera MD 1 tablet at 01/20/24 09 tacrolimus (PROGRAF) susp 0.2 mg 0.2 mg Oral Once per day on Thursday Timothy Joseph MD 0.2 mg at 01/19/24 0858 Tamsulosin HCl (FLOMAX) capsule 0.4 mg 0.4 mg Oral Daily Timothy Joseph MD 0.4 mg at 01/20/24917 Torsemide (DEMADEX) tablet 20 mg 20 mg [...] Studies: Labs-CBC: WBC/Hgb/Hct/Plts: 3.79/12.5/38.9/166 (01/20 611) Labs-Chem 7([facility]): Bun/Creat/Cl/CO2/Glucose: 15/1.12/105/28/88 (01/20 611) Na/K+/Phos/Mg/Ca: 141/3.8/--/1.6/-- (01/20 [...] seen and staffed with Dr. Mcgowan fellow manager commission Thank you, Starla Morris MD Associated attestation - Jyoti Bryant MD, PhD - 01/22/2024 10:54 AM EST Beata Bryant MD, PhD, have independently seen and examined the patient, reviewed the labs, discussed the patient with the fellow/resident and agree with the note. Associated Order(s): IP CONSULT TO HEPATOBILIARY N [facility] Consult WebExchange --> IM Consult Serv N --> [facility] consult service Fellow [...] GUIDANCE 05/17/2022 Surgeon: Enzo Heart DO; Location: [facility] INTERVENTIONAL RADIOLOGY (VIR) LIVER TRANSPLANT, ORTHOTOPIC N/A 04/12/2020 Laterality: N/A; Surgeon: LU Palma; Location: [facility] SAME DAY SURGERY MAIN OR KIDNEY TRANSPLANT W/O CROW CREEK NEPHRECTOMY N/A 04/12/2020 Laterality: N/A; Surgeon: LU Palma; Location: [facility] SAME DAY SURGERY MAIN OR [...] (order for outpatient) Please SecureChat or Call ([phone]) for any questions. Await attending attestation for final recommendations. Hank Noel MD Division of Gastroenterology, Hepatology, and Nutrition Clinical Fellow, PGY-5 Pager: [phone] For urgent/stat calls or consults 5pm to 7am, please page the on-call GI fellow on QXangatia. [facility]--> Internal Medicine--> Gastroenterology, Hepatology, & Nutrition--> 1st Call Fel Alysia For urgent/stat calls or consults 7am to 5pm during the weekend, please page the on-call GI fellow on QGenda. [facility]--> Internal Medicine--> Gastroenterology, Hepatology, & Nutrition--> All Hep & East Wknd Cons Day For follow up questions regarding this patient 7am to 5pm during the weekday, contact the Hepatology consults fellow or CARLOS A on QXangatia. [facility]--> Internal Medicine--> Gastroenterology, Hepatology, & Nutrition--> [...] Estrada MD, MSc documented in this encounter [facility] 01-19-2024 Nurse Note 01/19/24 0900 [...] rest, 95-96% when talking/moving. Paulette Cordon RN [facility] 01-19-2024 Nurse Note Paged overnight coverage, Jasper Gastelum MD, via pager #[phone] Pt- George Styles. Sarah [phone]. TM1. Was wondering if he can have his Melatonin order increased to 6mg. Per pt, he usually takes 8mg at home. -SAMI Duffy #[phone] Tati Charles RN [facility] 01-18-2024 Consult note Associated Order (s): [...] GUIDANCE 05/17/2022 Surgeon: Enzo Heart DO; Location: [facility] INTERVENTIONAL RADIOLOGY (VIR) LIVER TRANSPLANT, ORTHOTOPIC N/A 04/12/2020 Laterality: N/A; Surgeon: LU Palma; Location: [facility] SAME DAY SURGERY MAIN OR KIDNEY TRANSPLANT W/O CROW CREEK NEPHRECTOMY N/A 04/12/2020 Laterality: N/A; Surgeon: LU Palma; Location: [facility] SAME DAY SURGERY MAIN OR [...] (order for outpatient) Please SecureChat or Call ([phone]) for any questions. Await attending attestation for final recommendations. Hank Noel MD Division of Gastroenterology, Hepatology, and Nutrition Clinical Fellow, PGY-5 Pager: [phone] For urgent/stat calls or consults 5pm to 7am, please page the on-call GI fellow on QGenda. [facility]--> Internal Medicine--> Gastroenterology, Hepatology, & Nutrition--> 1st Call Fel Alysia For urgent/stat calls or consults 7am to 5pm during the weekend, please page the on-call GI fellow on QGenda. [facility]--> Internal Medicine--> Gastroenterology, Hepatology, & Nutrition--> All Hep & East Wknd Cons Fel Day For follow up questions regarding this patient 7am to 5pm during the weekday, contact the Hepatology consults fellow or CARLOS A on QGenda. [facility]--> Internal Medicine--> Gastroenterology, Hepatology, & Nutrition--> [...] (order for outpatient) Michael Estrada MD, MSc [facility] Work Phone: 01-16-2024 Plan of care note Internal Medicine Daily Progress Note Patient: George Styles, 1970, [id number] Physician: Arelis Mera MD, PGY3, Pager #[phone], TM1 service Assessment/Plan: George Styles is a [...] home amlodipine 5mg CAD: non-obstructive CAD on [facility] 2018. - continue home aspirin 81mg [...] MD, on rounds. Signed, Arelis Mera MD [facility] 01-16-2024 Nurse Note Mr. Styles was admitted to [address] [place] [address]. On admission to [facility], from outside facility a dual RN initial assessment of skin condition was performed by Izzy Gutierrez RN and Leroy Singleton RN. 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 [facility] 01-16-2024 History and physical note Images from the original note were not included. Internal Medicine Admission History & Physical Patient: George Styles, 1970, [id number] Physician: Timothy Joseph MD, PGY1, Pager #[phone], TM 1 service Date of face to [...] GUIDANCE 05/17/2022 Surgeon: Enzo Heart DO; Location: [facility] INTERVENTIONAL RADIOLOGY (VIR) LIVER TRANSPLANT, ORTHOTOPIC N/A 04/12/2020 Laterality: N/A; Surgeon: LU Palma; Location: [facility] SAME DAY SURGERY MAIN OR KIDNEY TRANSPLANT W/O CROW CREEK NEPHRECTOMY N/A 04/12/2020 Laterality: N/A; Surgeon: LU Palma; Location: [facility] SAME DAY SURGERY MAIN OR [...] itraconazole Fax results to: Dr. White - [phone] Transplant Neph - [phone] Gabapentin 400 MG capsule Sig: Take 1 [...] erythema: Skin: No jaundice or rash Neuro: braid maker 3-7, 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 Strength grossly [...] home amlodipine 5mg CAD: non-obstructive CAD on [facility] 2018. - continue home aspirin 81mg daily Gout: continue home allopurinol 200mg daily BPH: continue home flomax 0.4mg daily Complexity. Obesity Body mass index is 32.8 kg/m . - Follow with PCP for dietary and lifestyle modifications. Any conditions listed below are present on admission unless otherwise specified. . DVT prophylaxis with lovenox Disposition: admitted to [facility] Code status is Full Staffed [...] Pierson, Luisa Steven, Renee Rivera, Daisha Max Telephone Maintainer: José Miguel Garnica All Txt: 04/13/2020 (Kidney), [...] results found for: CYCLOSPORIN , CYCLOSPORIN2 , [id number] , CYCLORAND No results found for: SIROLIMUS [...] request in chart. Kevin Sage MD Pager [phone] [facility] 01-16-2024 History and physical note Images from the original note were not included. Internal Medicine Admission History & Physical Patient: George Styles, 1970, [id number] Physician: Timothy Joseph MD, PGY1, Pager #[phone], TM 1 service Date of face to [...] GUIDANCE 05/17/2022 Surgeon: Enzo Heart DO; Location: [facility] INTERVENTIONAL RADIOLOGY (VIR) LIVER TRANSPLANT, ORTHOTOPIC N/A 04/12/2020 Laterality: N/A; Surgeon: LU Palma; Location: [facility] SAME DAY SURGERY MAIN OR KIDNEY TRANSPLANT W/O CROW CREEK NEPHRECTOMY N/A 04/12/2020 Laterality: N/A; Surgeon: LU Palma; Location: [facility] SAME DAY SURGERY MAIN OR [...] itraconazole Fax results to: Dr. White - [phone] Transplant Neph - [phone] Gabapentin 400 MG capsule Sig: Take 1 [...] erythema: Skin: No jaundice or rash Neuro: braid maker 3-7, 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 Strength grossly [...] home amlodipine 5mg CAD: non-obstructive CAD on [facility] 2018. - continue home aspirin 81mg daily Gout: continue home allopurinol 200mg daily BPH: continue home flomax 0.4mg daily Complexity. Obesity Body mass index is 32.8 kg/m . - Follow with PCP for dietary and lifestyle modifications. Any conditions listed below are present on admission unless otherwise specified. . DVT prophylaxis with lovenox Disposition: admitted to [facility] Code status is Full Staffed [...] Pierson, Luisa Steven, Renee Rivera, Daisha Max Telephone Maintainer: José Miguel Garnica All Txt: 04/13/2020 (Kidney), [...] results found for: CYCLOSPORIN , CYCLOSPORIN2 , [id number] , CYCLORAND No results found for: SIROLIMUS [...] request in chart. Kevin Sage MD Pager [phone] documented in this encounter [facility] 01-12-2024 History of Present illness Narrative [...] Name: Prograf 0.2 MG Contact Info: Specialty ([place]) [phone] [facility] [phone] [facility] [phone] [place] [phone] Bedside Delivery ([facility]) [phone] [facility] RX OUTREACH ADVANCED: Call Information: Date and Time of Contact: 01/25/2024 10:23 AM Method of Contact: By Phone Contact Type: Prescriptions Contactor: [facility] Contactee: Patient Contact Outcome: Left message (prograf myco) Contact Info: Specialty ([place]) [phone] [facility] [phone] [facility] [phone] [place] [phone] Bedside Delivery ([facility]) [phone] documented in this encounter [facility] 01-12-2024 History of Present illness [...] Prograf 0.2 MG Contact Info: Specialty ([place]) [phone] [facility] [phone] [facility] [phone] [place] [phone] Bedside Delivery ([facility]) [phone] [facility] RX OUTREACH ADVANCED: Call Information: Date and Time of Contact: 01/25/2024 10:23 AM Method of Contact: By Phone Contact Type: Prescriptions Contactor: [facility] Contactee: Patient Contact Outcome: Left message (prograf myco) Contact Info: Specialty ([place]) [phone] [facility] [phone] [facility] [phone] David [phone] Bedside Delivery ([facility]) [phone] [facility] RX OUTREACH ADVANCED: Call Information: Date and Time of Contact: 01/27/2024 10:19 AM Method of Contact: By Phone Contact Type: Prescriptions Contactor: [facility] Contactee: Patient Contact Outcome: Left message (myco prograf) Contact Info: Specialty ([place]) [phone] [facility] [phone] [facility] [phone] [facility] [phone] Bedside Delivery ([facility]) [phone] documented in this encounter [facility] 01-12-2024 History of Present illness [...] Prograf 0.2 MG Contact Info: Specialty ([place]) [phone] [facility] [phone] [facility] [phone] David [phone] Bedside Delivery ([facility]) [phone] [facility] RX OUTREACH ADVANCED: Call Information: Date and Time of Contact: 01/25/2024 10:23 AM Method of Contact: By Phone Contact Type: Prescriptions Contactor: [facility] Contactee: Patient Contact Outcome: Left message (prograf myco) Contact Info: Specialty ([place]) [phone] [facility] [phone] [facility] [phone] David [phone] Bedside Delivery ([facility]) [phone] [facility] RX OUTREACH ADVANCED: Call Information: Date and Time of Contact: 01/27/2024 10:19 AM Method of Contact: By Phone Contact Type: Prescriptions Contactor: [facility] Contactee: Patient Contact Outcome: Left message (myco prograf) Contact Info: Specialty ([place]) [phone] [facility] [phone] [facility] [phone] David [phone] Bedside Delivery ([facility]) [phone] [facility] RX OUTREACH ADVANCED: Call Information: Date and Time of Contact: 02/01/2024 3:22 PM Contact Type: Prescriptions Contactor: [facility] Contactee: Patient Contact Outcome: Left message Shipping/Pickup: Medication Name: Mycophenolate 360mg and Prograf 0.2mg Pack Contact Info: Specialty ([place]) [phone] [facility] [phone] [facility] [phone] David [phone] Bedside Delivery ([facility]) [phone] documented in this encounter [facility] 01-06-2024 History of Present illness Narrative [...] The neurologist wanted to send him to [facility] neurology but it is out of [...] I have advised pt to contact insurance [email or web address] to see if they can provide a PA for pt to see neurologist in [facility] Immunocompromised (CMS/HCC) Hypertension ([facility]) No change in meds Check echo Relevant Orders Echocardiogram 2D complete Bilateral lower extremity edema Relevant Orders Echocardiogram 2D complete Shortness of breath Check ECHO Relevant Orders Echocardiogram 2D complete Other Visit Diagnoses 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) Atherosclerosis 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) documented in this encounter [facility] 10-06-2023 History of Present illness Narrative [facility] [...] Prograf 0.2 MG Contact Info: Specialty ([place]) [phone] [facility] [phone] [facility] [phone] [facility] [phone] Bedside Delivery ([facility]) [phone] [facility] RX OUTREACH ADVANCED: Call Information: Date and Time of Contact: 10/23/2023 2:00 PM Method of Contact: By Phone Contact Type: Prescriptions Contactor: [facility] Contactee: Patient Contact Outcome: Left message and Call back later Shipping/Pickup: Medication Name: Mycophenolate 360mg and Prograf 0.2mg Contact Info: Specialty ([place]) [phone] [facility] [phone] [facility] [phone] [facility] [phone] Bedside Delivery ([facility]) [phone] documented in this encounter [facility] 09-11-2023 Miscellaneous Notes Pt discharged home [...] the oxygen during the night. pt will oyster picker his oxygen from [employer] [facility], 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 This RN [...] Patient seen ambulating in the velazquez with TROLLEY WORKER. Patient was mildly short of breath on [...] of care. Outcome: Ongoing Flowsheets (Taken 09/05/2023 183) Infection Prevention/Resolution: making progress toward outcome Problem: [...] & HR 114. Messaged Mainor Loomis, via [employer] secure chat, Temp 100.8. His tylenol order [...] O2 supplement overnight to 5 L, but / CXR does not show any acute findings. [...] short period of time. 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 Episode of [...] Critical Care Medicine Message Mainor Loomis, via [employer] secure chat, Good evening, just an FYI, [...] short period of time. 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 This morning, [...] [address] Loera here also (canopy inspector) Dr. Diaz aware of pt's increased oxygen [...] Medicine-Pediatrics, PGY-2 Mr. Styles was admitted to [address] [place] [address]. On admission to [facility], from home a [...] station when available. documented in this encounter [facility] 09-11-2023 History of Present illness Narrative Provided follow-up emotional and spiritual support. Patient shared about rosemary of discharge and looking forward to seeing family Log Chipper provided: - Supportive presence - Active listening - Validation of feelings/emotions Patient encouraged to request a realty specialist as needed. Chaplains are available in-house 24 hours a day and 7 days a week. For urgent matters in [facility], please page [phone]. If the request is not urgent, please enter a consult. Consults are responded to within 24 hours. Senior Staff Log Chipper Angie Singh Mdiv, [facility] Hatteras [phone] [email or web address] 22/[email or web address] On-call [place]: [phone] 22/06 Pager ,ROBERTS [place], and Brock Hernandez Pager [phone] 09/11/23 1439 Clinical Encounter Type Visited With Patient Visit Type Follow-up Pastoral Time Spent 15 min Referral Other (See Comment) (rounding) Spiritual Assessment Spiritual Observation Spirituality helpful Emotional Observation Coping well Hope Observation Specific hope focus Support Observation By Family Interventions Provided Active listening;Supportive presence Facilitated Verbalization of feelings Explored Expectations Diagnostic Assistant Education Diagnostic Assistant Service Available Yes Educated Patient Plan of Care Continue Visiting PRN Images from the original note were not included. [facility] ([facility]) Note: Non-Verbal Med Rec [facility] received the following discharge prescription(s): Total cost is $0. I have reviewed the Discharge Rx Reconciliation Report. The discharge prescription(s) will be delivered to the patient on 09/11/2023. Dimitrios Gurrola RPh,PharmD Specialty ([place]) [phone] [facility] [phone] [facility] Bedside Delivery [phone] [facility] [phone] [facility] Bedside Delivery [phone] [place] [phone] [facility] Bedside Delivery [phone] [place] [phone] [place] [phone] Internal Medicine Daily Progress Note Patient: George Styles, 1970, [id number] Physician: Evan Kelly MD, PGY-1, TM1 service Subjective/Interval History: Patient continues to require oxygen overnight for desaturations. With insurance limitations, only accepting agency to provide home oxygen backed out. After calling them to discuss, Lynn stated she would be willing to have patient drive to their facility to oyster picker supplies, however they close at 5pm. 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 His [place] kidney disease was noted to be presumed [...] losartan 50mg BID CAD: non-obstructive CAD on [facility] 2018. - continue home aspirin 81mg [...] 5.05 (H) 11/19/2018 Kevin Sage MD, [employer] Supervisor of Clinical Medicine [facility] Images from the original note were not included. Final Discharge Planning and Transportation Final Discharge Planning Discharge Disposition: Home Services at Discharge: Outpatient clinical services (ie: lab draws, transfusions, injectables) (Home Oxygen by [facility]) Selected Continued Care - Admitted Since 08/28/2023 Durable Medical Equipment Coordination complete. Service Provider Selected Services Address Phone Fax Patient Preferred [employer] Medical [employer] [address] [facility] [id number] Internal Comment last updated by Lora Alexander RN 09/10/2023 1334 Correct contact information: [employer] [address] [place] [address] [place] [address] division officer weapons department- you do not need to call at discharge, I already notified the company. Addendum [phone] [facility] notified this CM they are out of patient's insurance area and will not be able to service this patient at time of discharge. Provider notified. Addendum 1148 Dr Kelly called [facility] spoke to Lynn and she said they are willing to accept patient if the patient would drive to the [place] office and oyster picker the supplies. Patient is willing to [...] Lora Colón RN, MSN, CCM, CMCN Clinical Machine Assembler For Puller Over- [facility] Transplant #[phone] Department of Pharmacy Transplant Note Patient: George [...] dose adjustment Name: Matt Kramer RPh,PharmD Phone: [phone] Date/Time: 09/10/2023 11:33 AM This CM sent referral via A[employer] for O2 concentrator to 4 agencies Start date today Timer set for [address] [facility] [employer] [facility] [employer] Addendum 1332 One accepting company reserved in [facility] [facility] [address] [place] [address] [place] [address] Lora Colón RN, MSN, CCM, CMCN Clinical Machine Assembler For Puller Over- [facility] Transplant #[phone] NUTRITION FOLLOW-UP Nutrition Plan of Care: 1. Continue current diet order. 2. No oral supplements warranted at this time. 3. Monitor for significant weight changes. Monitor GI, skin integrity. 4. Monitor and encourage po intakes with goal of average po being 75-100%. 5. obstetrical tech to follow. ___ Met with patient today at bedside wearing mask. Current Diet Orders Procedures DIET REGULAR Standing Status: Standing Number of Occurrences: 1 Appetite: good Per doc flow sheet: Date Breakfast Lunch Dinner 09/08 -% 75% -% 09/07 100% 75% 100% 10 100% 100% 100% 10 100% 100% -% 10/6 -% -% -% Po average over past [...] time. Will continue to monitor. RHIANNON BirminghamR Pager:[phone] Transplant Infectious Disease (Team 3) Progress Note [...] sign off. Please Epic message or page [phone] with questions. 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 His [place] kidney disease was noted to be presumed [...] losartan 50mg BID CAD: non-obstructive CAD on [facility] 2019. - continue home aspirin 81mg [...] to follow. Please Epic message or page [phone] with questions. 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 His [place] kidney disease was noted to be presumed [...] losartan 50mg BID CAD: non-obstructive CAD on [facility] 2018. - continue home aspirin 81mg daily, holding atorvastatin 20mg daily Gout: continue home allopurinol 200mg daily BPH: continue home flomax 0.4mg daily DVT PPX: SQH Code Status: Full Code Disposition: Pending clinical course. Anticipate eventual discharge home. Discussed with team and attending, Kevin Sage MD, on rounds. 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 His [place] kidney disease was noted to be presumed [...] losartan 50mg BID CAD: non-obstructive CAD on [facility] 2019. - continue home aspirin 81mg [...] 5.05 (H) 11/19/2018 Kevin Sage MD, SERA [employer]actor Fueling Supervisor of Clinical Medicine [facility] Transplant Infectious Disease [...] to follow. Please Epic message or page [phone] with questions. Ann Marie Haskins MD PGY-4, [...] he continues to improve. Please message via [employer] secure chat or page with any questions or concerns. Evan White DO Reactor Fueling Supervisor Division of Infectious Disease Transplant Infectious [...] to follow. Please Epic message or page [phone] with questions. Evan White DO Transplant Infectious Diseases Images from the original note were not included. Pulmonary/Critical Care Medicine Daily Progress Note Reason for Consultation: bronch for infectious workup Requesting Physician: Dr. Sage CURRENT HOSPITALIZATION: Admit Date: 08/28/2023 [facility] Hospital LOS: 9 days Impression 1. Acute [...] and interpreted reviewed the radiographic data in IHIS/CrossCurrente/[employer]. 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 His [place] kidney disease was noted to be presumed [...] losartan 50mg BID CAD: non-obstructive CAD on [facility] 2018. - continue home aspirin 81mg [...] 5.05 (H) 11/19/2018 Kevin Sage MD, SERA [employer] Supervisor of Clinical Medicine [facility] Images from the original note were not included. Pulmonary/Critical Care Medicine Daily Progress Note Reason for Consultation: bronch for infectious workup Requesting Physician: Dr. Sage CURRENT HOSPITALIZATION: Admit Date: 08/28/2023 [facility] Hospital LOS: 8 days Impression 1. [...] and interpreted reviewed the radiographic data in [facility] Acute Occupational Therapy Evaluation Prior to Admission [...] Assessment: Transfer Assessment: Sit to Stand Transfer Masterson Level: Sit->Stand: independent Skilled Intervention/Details: Sit->Stand: x1 from EOB, x1 from toilet Stand to Sit Transfer Masterson Level: Stand->Sit: independent Skilled Intervention/Details: Stand->Sit: x1 to toilet, x1 to EOB Functional Mobility: Functional Mobility Masterson Level: Functional Mobility/Gait: independent Ambulation Distance (Feet): 20 Skilled Intervention/Details - Functional Mobility/Gait: pt performed functional mobility to/from RR w/ no overt LOB Outcome Score(s): CURRENT [facility] Daily Activity Inpatient Short Form Putting on/Taking Off Lower Body Clothin - A Little Assistance Bathin - A Little Assistance Toiletin - A Little Assistance Putting on/Taking Off Upper Body Clothin - No Assistance Groomin - No Assistance Eatin - No Assistance CURRENT [facility] Activity Raw Score: 21 CURRENT -[facility] Activity Functional Limitation/Modifier: 32.79% Currently Impaired [...] Acute Physical Therapy Evaluation Prior to Admission [facility] score(s): PRIOR LEVEL AM-PAC Mobility Raw [...] Intact Mobility Assessment: Supine to Sit Mobility Masterson Level: Supine->Sit: modified independence Bed Features/Set-up: Supine->Sit: Head of bed elevated Sit to Supine Mobility Masterson Level: Sit->Supine: not tested Balance: Sitting Balance [...] environment. Transfer Assessment: Sit to Stand Transfer Masterson Level: Sit->Stand: independent Skilled Intervention/Details: Sit->Stand: From EOB x 2 without difficulty. Stand to Sit Transfer Masterson Level: Stand->Sit: independent Assistive Device: Stand->Sit: armed chair Skilled Rationale: Verbal cues, Positioning Gait/Functional Mobility: Gait Assessment Masterson Level: Gait: stand-by assist Assistive Device: Gait: rollator Ambulation Distance (Feet): 400 Gait Deviations Identified: decreased grace, decreased gait speed Gait Skilled Rationale: verbal, upright posture, increase step length, increase foot clearance Skilled Intervention/Details - Gait: Reasonable foot clearnce without loss of balance but endorsing dyspnea as 6-7/10. 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 His [place] kidney disease was noted to be presumed [...] losartan 50mg BID CAD: non-obstructive CAD on [facility] 2018. - continue home aspirin 81mg [...] 5.05 (H) 11/19/2018 Kevin Sage MD, SERA [employer] Supervisor of Clinical Medicine [facility] Transplant Infectious Disease [...] to follow. Please Epic message or page [phone] with questions. Evan White DO Transplant Infectious Diseases Images from the original note were not included. Internal Medicine Daily Progress Note Patient: George Styles, 1970, [id number] Physician: Evan Kelly MD, PGY-1, TM1 service [...] 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 His [place] kidney disease was noted to be presumed [...] losartan 50mg BID CAD: non-obstructive CAD on [facility] 2018. - continue home aspirin 81mg [...] given interaction with P 450 system Kevin Niki, MD, SERA [employer] Supervisor of Clinical Medicine [facility] ERT Note: ERT [...] MD, PhD Internal Medicine and Pediatrics PGY-3 [facility] Brief plan of care update: Called [...] MD, PhD Internal Medicine and Pediatrics PGY-3 [facility] Transplant Infectious Disease (Team 3) Progress [...] to follow. Please Epic message or page [phone] with questions. Evan White DO Transplant Infectious Diseases Internal Medicine Daily Progress Note Patient: George Styles, 1970, [id number] Physician: Evan Kelly MD, PGY-1, TM1 service [...] 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 His [place] kidney disease was noted to be presumed [...] 2/2 renal function CAD: non-obstructive CAD on [facility] 2018. - continue home aspirin 81mg [...] 5.05 (H) 11/19/2018 Kevin Sage MD, SERA [employer] Supervisor of Clinical Medicine [facility] Internal Medicine Daily Progress Note Patient: George Styles, 1970, [id number] Physician: Evan Kelly MD, PGY-1, TM1 service [...] 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 His [place] kidney disease was noted to be presumed [...] 2/2 renal function CAD: non-obstructive CAD on [facility] 2018. - continue home aspirin 81mg [...] 5.05 (H) 11/19/2018 Kevin Sage MD, FASN [employer]ing Supervisor of Clinical Medicine [facility] Progression of Care [...] Lora Colón RN, MSN, CCM, CMCN Clinical Machine Assembler For Puller Over- R10 Transplant #[phone] Made introductory visit with patient. Provided emotional and spiritual support. Patient shared about: - Source of Rosemary: Camping/Fishing/Family - Spirituality/Christianity Affiliation: raised Mu-Ism - Family Support/history - Experience with illness/hospital course - Hopes for healing/future Log Chipper provided: - Supportive presence - Active listening - Validation of feelings/emotions - Pledged prayer Patient encouraged to request a realty specialist as needed. Chaplains are available in-house 24 hours a day and 7 days a week. For urgent matters in [facility], please page [phone]. If the request is not urgent, please enter a consult. Consults are responded to within 24 hours. Senior Staff Log Chipper Angie Singh Mdiv, [facility] Hatteras [phone] [email or web address] 22/06 On-call Hatter[place]: [phone] 22/06 Pager ,ROBERTS [place], and Brock Hernandez Pager [phone] 09/02/23 1112 Clinical Encounter Type Visited With Patient Visit Type Introduction Pastoral Time Spent 15 min Referral Other (See Comment) (rounding) Spiritual Assessment Spiritual Observation Spirituality helpful Emotional Observation Coping well Hope Observation Specific hope focus Support Observation By Family Interventions Provided Active listening;Supportive presence Facilitated Verbalization of feelings Explored Expectations Diagnostic Assistant Education Diagnostic Assistant Service Available Yes Educated Patient Outcomes Patient Outcomes Reduced distress Plan of Care Continue Visiting PRN NUTRITION RISK SCREENING NOTE Nutrition Plan of Care: 1. Continue current diet order. 2. No oral supplements warranted at this time. 3. Monitor for significant weight changes. Monitor GI and skin integrity. 4. Monitor and encourage po intakes with goal of average po being 100%. 5. obstetrical tech to follow. George Styles is a 53 y.o. 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 His [place] kidney disease was noted to be presumed hepatorenal syndrome. His post-transplant course was noteworthy for nephrostomy tube (05/17/2022-09/10/2022) due to concern for ureteral stone. He presents as a direct admission for fever, cough, for infectious workup. Pt unavailable and information obtained via chart review Claim Benefit Specialist Screening Pt's appetite is good. Pt with [...] with meds Food Allergies reviewed:Shellfish Cultural or Christianity Restrictions/Preferences: None GI: Last Bowel Movement: 09/01/23 [...] time. Will continue to monitor. RHIANNON BirminghamR Pager:[phone] Internal Medicine Daily Progress Note Patient: George Styles, 1970, [id number] Physician: Evan Kelly MD, PGY-1, TM1 service [...] 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 His [place] kidney disease was noted to be presumed [...] 2/2 renal function CAD: non-obstructive CAD on [facility] 2018. - continue home aspirin 81mg [...] as outlined above. Kevin Sage MD Pager [phone] Summary: Pharmacy Med Rec Department of Pharmacy [...] Provider: Zuly Bruno NP Pharmacy: [facility] Other Comments: Patient reported his Last Home Dose of mycophenolate & tacrolimus was on 08/28/23 at 0900. Patient reported he was taking Bactrim and benzonatate for fevers and a cough he was having. Please feel free to contact me with any further questions. Name: Heidy Chatman Phone #: [phone] Date/Time: 09/01/2023 2:01 PM Time Spent: 15 minutes Associated attestation - Matt Kramer RPh,PharmD - 09/01/2023 2:28 PM EDT Department of Pharmacy Admission Medication Reconciliation Note Patient: George Styles Room/Bed: 1062/A I have reviewed the home medication list with the Drying Rack Changer. All changes to the home medication list have been updated in IHIS. Updated PRINT DECORATOR Med List: Prior to Admission Medications Prescriptions [...] questions. Name: Matt Kramer RPh,PharmD Phone #: [phone] Date/Time: 09/01/2023 2:28 PM Transplant Infectious Disease [...] to follow. Please Epic message or page [phone] with questions. Evan White DO Transplant Infectious Diseases Internal Medicine Daily Progress Note Patient: George Styles, 1970, [id number] Physician: Evan Kelly MD, PGY-1, TM1 service [...] 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 His [place] kidney disease was noted to be presumed [...] 2/2 renal function CAD: non-obstructive CAD on [facility] 2018. - continue home aspirin 81mg [...] 5.05 (H) 11/19/2018 Kevin Sage MD, SERA [employer] Supervisor of Clinical Medicine [facility] Discharge Planning Patient [...] Yes Name and Contact information: Gian Styles ([phone]) Reviewed and Updated in Demographics? : Yes [...] patient on Anticoagulation? : No [id number] [place] [address] - [address] [facility] [address] [facility] [address] Communications Systems Engineer Does the patient or car sales representative express financial concerns? : No [...] Plan 1. Identified self and role as Machine Assembler For Puller Over. 2. Confirmed and updated demographics and treatment team. 3. Machine Assembler For Puller Over will continue to follow with medical team/pt for any other additional discharge needs. Kasandra DON RN [facility] [phone] *Please note I am float CM and work Thursday and Thursday every other week. Please call [phone] for assist in my absence. Internal Medicine Daily Progress Note Patient: George Styles, 1970, [id number] Physician: Evan Kelly MD, PGY-1, TM1 service [...] 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 His [place] kidney disease was noted to be presumed [...] 2/2 renal function CAD: non-obstructive CAD on [facility] 2018. - continue home aspirin 81mg [...] 5.05 (H) 11/19/2018 Kevin Sage MD, SERA [employer] Supervisor of Clinical Medicine [facility] Internal Medicine Daily Progress Note Patient: George Styles, 1970, [id number] Physician: Laurel Serrano MD, PhD, PGY-3, TM1 [...] 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 His [place] kidney disease was noted to be presumed [...] losartan 50mg BID CAD: non-obstructive CAD on [facility] 2018. - continue home aspirin 81mg daily, atorvastatin 20mg daily Gout: continue home allopurinol 200mg daily BPH: continue home flomax 0.4mg daily DVT PPX: SQH Code Status: Full Code Disposition: Pending clinical course. Anticipate eventual discharge home. Discussed with team and attending, Kevin Sage MD, on rounds. Signed, Laurel Serrano MD, PhD documented in this encounter [facility] 09-10-2023 Hospital Discharge instructions Laurel Serrano [...] a sleep doctor. You will need to oyster picker the oxygen concentrator when you leave [...] on healthy foods. documented in this encounter [facility] 09-01-2023 Consult note Associated Order (s): IP CONSULT TO PULMONOLOGY Pulmonary Medicine Inpatient Consultation Reason for Consultation: bronch for infectious workup Requesting Physician: Dr. Sage Pulmonary Attending Physician: Dr. Diaz CURRENT HOSPITALIZATION: Admit Date: 08/28/2023 [facility] Hospital LOS: 4 days Impression/Recommendations: George [...] Recommendations: - Plan to bronch tomorrow morning. NPO@IA, order placed - would repeat HIV, last [...] short period of time. 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 Other histories as documented in the [...] had any ill contacts. He traveled to [place] to family reunion in May. REVIEW OF [...] GUIDANCE 05/17/2022 Surgeon: Enzo Heart DO; Location: [facility] INTERVENTIONAL RADIOLOGY (VIR) LIVER TRANSPLANT, ORTHOTOPIC N/A 04/12/2020 Laterality: N/A; Surgeon: LU Palma; Location: [facility] SAME DAY SURGERY MAIN OR KIDNEY TRANSPLANT W/O [place] NEPHRECTOMY N/A 04/12/2020 Laterality: N/A; Surgeon: LU Palma; Location: [facility] SAME DAY SURGERY MAIN OR [...] Alamo MD I can be reached via [employer] secure message (preferred) or Pager #[phone] documented in this encounter [facility] 08-28-2023 History and physical note Images from the original note were not included. Internal Medicine Admission History & Physical Patient: George Styles, 1970, [id number] Physician: Aric Turner MD, PGY1, Pager #[phone], service Date of face to face patient [...] So he went to see the transplant stretcher operator. He was found elevated Cr and [...] Appetite is ok now. Urine is about 0933-9150 ml every day. Stool every day, no [...] 04/12/2020 Laterality: N/A; Surgeon: LU Palma; Location: [facility] SAME DAY SURGERY MAIN OR KIDNEY TRANSPLANT W/O [place] NEPHRECTOMY N/A 04/12/2020 Laterality: N/A; Surgeon: LU Palma; Location: [facility] SAME DAY SURGERY MAIN OR [...] 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 His [place] kidney disease was noted to be presumed [...] Urinary histoplasmosis - PJP, candid PCR - Drawing Supervisor transplant ID Acute Kidney Injury with Kidney [...] losartan 50mg BID CAD: non-obstructive CAD on [facility] 2018. - continue aspirin 81mg daily, [...] Pierson, Luisa Steven, Renee Rivera, Daisha Max Telephone Maintainer: José Miguel Garnica All Txt: 04/13/2020 (Kidney), [...] results found for: CYCLOSPORIN , CYCLOSPORIN2 , [id number] , CYCLORAND No results found for: SIROLIMUS [...] Rest as above. Kevin Sage MD Pager [phone] documented in this encounter [facility] 08-28-2023 History of Present illness Narrative Images from the original note were not included. 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 Telephone Maintainer: Anayeli Burt Date of Liver Transplant: 04/13/2020 (Kidney), 04/13/2020 (Liver) 3 years 4 months post Liver/Kidney Transplant Primary Disease: Hypertensive Nephrosclerosis Transplant Console Manager: Erma Roe/ Daisha Max Primary Care [...] and faMOTIdine === None Specified Preferred Lab: [facility] Change in lab frequency / new [...] every 12 hours. ADDITIONAL INFORMATION: None Specified, [id number] [place] [address] - [address] [address] [facility] [address] [facility] [address] [facility] [address] [facility]/pharmacy #[id number] [place] [address] - [address] [facility] [address] [address] [facility] [address], [address] [facility] [address] ROS and SCREEN: Chest Pain: negative Cough: [...] PHYSICIAN: I saw George Styles at the [facility] on 08/28/2023. Patient is a 53 y.o. 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 His [place] kidney disease was noted to be presumed [...] GUIDANCE 05/17/2022 Surgeon: Enzo Heart DO; Location: [facility] INTERVENTIONAL RADIOLOGY (VIR) LIVER TRANSPLANT, ORTHOTOPIC N/A 04/12/2020 Laterality: N/A; Surgeon: LU Palma; Location: [facility] SAME DAY SURGERY MAIN OR KIDNEY TRANSPLANT W/O [place] NEPHRECTOMY N/A 04/12/2020 Laterality: N/A; Surgeon: LU Palma; Location: [facility] SAME DAY SURGERY MAIN OR [...] you have any questions. Steve Latham MD diploma dental assistant Division of Nephrology [facility] documented in this encounter [facility] 08-28-2023 Instructions Mainor Busby RN - 08/28/2023 2:15 PM EDT - Admission for fevers, cough, and night sweats documented in this encounter [facility] 08-19-2023 History of Present illness Narrative [facility]REACH [facility]VANC[facility]: Call Information: Date and Time of Contact: 08/19/2023 2:52 PM Method of Contact: By Phone Contact Type: Prescriptions Contactor: [facility] OP Contactee: Patient Shipping/Pickup: Medicare B Refill?: No Medication Name: Tacro 0.5mg Delivery Method: Air Delivery Location: Home Signature Required: No Mailing/Pickup Date: 08/25/2023 Shipping Address: [address] [place] [address] Contact Info: Specialty ([place]) [phone] [facility] [phone] [facility] [phone] David [phone] Bedside Delivery ([facility]) [phone] documented in this encounter [facility] 06-12-2023 History of Present illness Narrative Images from the original note were not included. George Styles is a 53 y.o. 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 No longer follows with a local stretcher operator. History of Present Illness: Since George [...] and lab results. Rebeca Olsen MSN, RN, DOCUMENT MANAGEMENT TECHNICIAN-BC, CCTN Certified Nurse Practitioner [facility] Trans[facility] [address] [facility] [address] documented in this encounter [facility] 06-12-2023 Instructions JEANNA Hess - 06/12/2023 3:00 PM EDT No change in immunosuppression. documented in this encounter [facility] 06-10-2023 History of Present illness Narrative [facility]REACH [facility]: Call Information: Method of Contact: By Phone Contact Type: Prescriptions Contactor: [facility] Contactee: Patient Contact Outcome: Left message Shipping/Pickup: Medication Name: Mycophenolate sod 180 mg Contact Info: Specialty ([place]) [phone] [facility] [phone] [facility] [phone] David [phone] Bedside Delivery ([facility]) [phone] [facility] RX OUTREACH ADVANCED: Call Information: Date and Time of Contact: 06/12/2023 9:43 AM Method of Contact: By Phone Contact Type: Prescriptions Contactor: [facility] OP Contactee: Patient Contact Outcome: Left message and Follow-up Shipping/Pickup: Medicare B Refill?: No Medication Name: Myco 180 Contact Info: Specialty ([place]) [phone] [facility] [phone] [facility] [phone] David [phone] Bedside Delivery ([facility]) [phone] [facility] RX OUTREACH ADVANCED: Call Information: Date and Time of Contact: 06/12/2023 10:08 AM Method of Contact: By Phone Contact Type: Prescriptions Contactor: [facility] OP Contactee: Patient Shipping/Pickup: Medicare B Refill?: No Medication Name: Mycophenolate 180mg DR Delivery Method: Air Delivery Location: Home Signature Required: No Mailing/Pickup Date: 06/17/2023 Shipping Address: [address] [place] [address] Contact Info: Specialty ([place]) [phone] [facility] [phone] [facility] [phone] David [phone] Bedside Delivery ([facility]) [phone] documented in this encounter [facility] [facility] 04-13-2023 Note [place] [facility] - [facility] Subjective George Styles is a [...] Legacy Encounter on (more content not included)... [facility] 03-12-2023 History of Present illness Narrative [facility] RX OUTREACH ADVANCED: Call Information: Date and Time of Contact: 03/12/2023 10:34 AM Method of Contact: By Phone Contact Type: Prescriptions Contactor: [facility] Contactee: Patient Shipping/Pickup: Medicare B Refill?: No Medication Name: Mycophenoloate sod 360 mg prednisone 5mg Delivery Method: Air Delivery Location: Home Signature Required: No Mailing/Pickup Date: 03/16/2023 Shipping Address: [address] [place] [address] Contact Info: Specialty ([place]) [phone] [facility] [phone] [facility] [phone] David [phone] Bedside Delivery ([facility]) [phone] [facility] OUTREACH ADVANCED: Call Information: [...] Required: No Mailing/Pickup Date: 03/19/2023 Shipping Address: [address] [place] [address] [address] Contact Info: Specialty ([place]) [phone] Jakob [phone] [facility] [phone] David [phone] Bedside Delivery ([facility]) [phone] documented [facility] encounter [facility] 03-10-2023 History of Present illness Narrative [facility] OUTREACH ADVANCED: Call Information: Date and Time of Contact: 03/10/2023 12:00 PM Method of Contact: By Phone Contact Type: Prescriptions Contactor: [facility] Contactee: Patient Contact Outcome: Left message and Call back later Shipping/Pickup: Medication Name: Mycophenolate ; Tacrolimus Contact Info: Specialty ([place]) [phone] Jakob [phone] [facility] [phone] David [phone] Bedside Delivery ([facility]) [phone] documented in this encounter [facility] 03-10-2023 History of Present illness Narrative [facility] OUTREACH ADVANCED: Call Information: Date and Time of Contact: 03/10/2023 12:00 PM Method of Contact: By Phone Contact Type: Prescriptions Contactor: [facility] Contactee: Patient Contact Outcome: Left message and Call back later Shipping/Pickup: Medication Name: Mycophenolate ; Tacrolimus Contact Info: Specialty ([place]) [phone] Jakob [phone] [facility] [phone] David [phone] Bedside Delivery ([facility]) [phone] [facility] RX OUTREACH ADVANCED: Call Information: Date and Time of Contact: 03/12/2023 10:32 AM Method of Contact: By Phone Contact Type: Prescriptions Contactor: [facility] Contactee: Patient Contact Outcome: Left message Shipping/Pickup: Medication Name: Mycophenolate sodium (MYFORTIC) 180 MG Tab tacrolimus 0.5 mg Contact Info: Specialty ([place]) [phone] [facility] [phone] [facility] [phone] David [phone] Bedside Delivery ([facility]) [phone] documented in this encounter [facility] 01-16-2023 History of Present illness Narrative -Referring Provider for today's consult: Daisha Max DO -Primary Care Provider: Zuly Bruno History of Present Illness George Sytles is a 52 y.o. male who presents to the [facility] Transplant Hepatology Clinic today for follow-up of [...] GUIDANCE 05/17/2022 Surgeon: Enzo Heart DO; Location: [facility] INTERVENTIONAL RADIOLOGY (VIR) LIVER TRANSPLANT, ORTHOTOPIC N/A 04/12/2020 Laterality: N/A; Surgeon: LU Palma; Location: [facility] SAME DAY SURGERY MAIN OR KIDNEY TRANSPLANT W/O [place]OW CREEK NEPHRECTOMY N/A 04/12/2020 Laterality: N/A; Surgeon: LU Palma; Location: [facility] SAME DAY SURGERY MAIN OR [...] 0.3 12/29/2022 Explant Pathology Pathologic Diagnosis A. [place] liver, orthotopic liver transplant resection (1458 gram): [...] A/P with IV contrast (06/27/2022): 1. Both [place] kidneys are atrophic with improvement in right-sided [...] frequent nighttime urination, etc). Daisha Max DO Reactor Fueling Supervisor Gastroenterology, Hepatology and Nutrition [facility] Pager: [phone] Images from the original note were not included. 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 Telephone Maintainer: Anayeli Burt Date of Liver Transplant: 04/13/2020 (Kidney), 04/13/2020 (Liver) 2 years, 8 months post Liver/Kidney Transplant Primary Disease: Hypertensive Nephrosclerosis Transplant Console Manager: Steve Latham Primary Care physician: Zuly [...] levels: No results found for: CYCLOSPORIN, CYCLOSPORIN2, [id number], CYCLORAND No components found for: CYCLOSPORINE, 2HR [...] hours. ADDITIONAL INFORMATION: None Specified [id number] [place] [address] - [address] [facility] [address] [facility] [address] [facility] [place] [facility] [address] [facility] [facility] [address] [id number] [place] [address] [address] [facility] [address] [facility] [address] [facility] Jakob [address], [place] [address] [facility] [address] ROS and SCREEN: Chest Pain: negative Cough: [...] ADDRESS WITH PHYSICIAN: documented in this encounter [facility] 01-16-2023 Instructions José Miguel Garnica RN - 01/16/2023 9:40 AM EST - Labs Every 2 months - Discuss night time urination with your PCP - Schedule Colonoscopy through PCP - Follow up in 1 year documented in this encounter [facility] 09-10-2022 History of Present illness [...] and no hydronephrosis. Some reflux up the [place] right ureter but good drainage of both transplant and [place] ureter to the bladder. Nephrostomy tube was [...] transplant, orthotopic (N/A, 04/12/2020); kidney transplant w/o [place] nephrectomy (N/A, 04/12/2020); and placement nephrostomy catheter [...] Negative for , diarrhea, constipation Genitourinary: See [place] Neurological: Negative for headaches. Lymph/Heme: Negative for [...] x 4, Normal strength. No edema. Skin: [place], warm, and dry. There are no rashes [...] and no hydronephrosis. Some reflux up the [place] right ureter but good drainage of both transplant and [place] ureter to the bladder. Nephrostomy tube was [...] MD 09/10/22 documented in this encounter [facility] 07-07-2022 History of Present illness Narrative [...] assisted off the table and escorted to office assistant receptionist where they made a follow up. [...] to have transplant ureter with anastomosis to [place] right ureter. Nephrostogram without filling defects and no hydronephrosis. Some reflux up the [place] right ureter but good drainage of both transplant and [place] ureter to the bladder. Nephrostomy tube was removed without issue. Patient does have some sensation of incomplete bladder emptying and occasional sensation in his right flank. PVR today was 33cc. Will re-evaluate urinary symptoms at next appointment. --continue Flomax --RTC in one month flow flow/PVR/IPSS Patient to call with any additional questions or concerns. Ryan Yepez MD 07/07/22 documented in this encounter [facility] 06-27-2022 History of Present illness Narrative [...] transplant, orthotopic (N/A, 04/12/2020); kidney transplant w/o [place] nephrectomy (N/A, 04/12/2020); and placement nephrostomy catheter [...] Negative for , diarrhea, constipation Genitourinary: See [place] Neurological: Negative for headaches. Lymph/Heme: Negative for [...] x 4, Normal strength. No edema. Skin: [place], warm, and dry. 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 Nephrostomy tube placed 05/17 [...] bag if needed. documented in this encounter [facility] 06-27-2022 History and physical note Patient was evaluated in clinic as a nurse visit. Please refer to Rena Brewster's note. [facility] Work Phone: 06-27-2022 History and physical note Patient was evaluated in clinic as a nurse visit. Please refer to Rena Brewster's note. documented in this encounter [facility] 06-27-2022 History of Present illness Narrative TEACHING REGARDING TX NEPH COMPLETED-NEPH TUBE SITE DRY AND INTACT-CLEAR YELLOW URINE IN THE BAG-INSTRUCTED ABOUT FLUSHING, BAG CHANGING ETC. NUMEROUS QUESTIONS ASKED AND ANSWERED-VERBALIZED UNDERSTANDING documented in this encounter [facility] 06-18-2022 Note EXAMINATION: CT ABD/ [...] mass or enlargement. KIDNEYS: Marked atrophy of [place] kidneys. Transplant right pelvic kidney with percutaneous [...] authenticated by: MÓNICA JIMENEZ Date: 2022-06-18 13:53 [facility] 06-12-2022 Instructions Anayeli Christianson RN - 06/12/2022 3:21 PM EDT Do not take apart/disrupt nephrostomy tube system. Call Interventional Radiology and/or on-call transplant nurse [phone] for instruction if need to flush (clot or decreased flow). Take cipro 500mg, one tablet, twice per day for 14 days documented in this encounter [facility] 06-12-2022 History of Present illness Narrative Images from the original note were not included. 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 Telephone Maintainer: Anayeli Burt Date of Liver Transplant: 04/13/2020 (Kidney), 04/13/2020 (Liver) 2 year, 1 months post Liver/Kidney Transplant Primary Disease: Hypertensive Nephrosclerosis Transplant Console Manager: Steve Latham Primary Care physician: Zuly [...] Labs needed in clinic today? COORDINATOR NOTES: [place] 05/20/2022 Problem list: severe obstructive FAYE of [...] transport for appointment: no Did front desk receptionist confirm current address and insurance information is [...] LAB AND PHARMACY: None Specified [facility] [place] [address] - [address] [facility] [address] [facility] [address] [facility] [place] [facility] [address] [place] [address] [facility] [address] [id number] [place] [address] [address] [facility] [address] [facility] [address] [facility] Jak[place] [address], [place] [address] [facility] [address] ROS and SCREEN: Chest Pain: negative Cough: negative SOB: negative Abd Pain: negative Nausea: positive Vomiting: negative Diarrhea: negative Constipation: negative Dysuria: positive Edema: negative Tremors: negative Headaches: negative Wound issues: negative Pt has neph tube w clear yellow urine. States he had a small clot that he dislodged QUESTIONS OR CONCERNS TO ADDRESS WITH PHYSICIAN: I saw George Styles at the [facility] on 06/12/2022. Patient is a 52 y.o. 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 His [place] kidney disease was noted to be presumed [...] GUIDANCE 05/17/2022 Surgeon: Enzo Heart DO; Location: [facility] INTERVENTIONAL RADIOLOGY (VIR) LIVER TRANSPLANT, ORTHOTOPIC N/A 04/12/2020 Laterality: N/A; Surgeon: LU Palma; Location: [facility] SAME DAY SURGERY MAIN OR KIDNEY TRANSPLANT W/O [place] NEPHRECTOMY N/A 04/12/2020 Laterality: N/A; Surgeon: LU Palma; Location: [facility] SAME DAY SURGERY MAIN OR [...] you have any questions. Steve Latham MD diploma dental assistant Division of Nephrology [facility] documented in this encounter [facility] 06-04-2022 Instructions TATI GROVE - 06/04/2022 11:04 AM EDT Thank you for joining us for your neph tube follow up. We recommend routine exchange every 8-10 weeks. Please reach out at [phone] when it is time to set your next routine exchange. Thank you IR clinic documented in this encounter [facility] 06-04-2022 History of Present illness [...] exchange. Verbalized understanding. documented in this encounter [facility] 05-20-2022 Note Formatting of this [...] time of his discharge. Leon Cook RN [facility] 05-20-2022 Miscellaneous Notes Patient discharged. [...] provide teaching before his discharge Leon RN #[id number] Leon Cook RN Afternoon assessment completed at [...] Interdisciplinary Rounds/Family Conf Outcome: Ongoing Discussed with [facility] re: possible urine culture performed at [...] with questions. Evan Byrd MD Urology, PGY-2 #[id number] I certify that this patient requires inpatient [...] care explained choices provided On admission to 0, a dual RN initial assessment of skin condition was performed by Kallie Lorenzana RN and Sheri Arguelles RN. Skin Assessment: WDL Jose Score: 20 LDA Added:N Kallie Lorenzana RN documented in this encounter [facility] 05-20-2022 Note Formatting of this [...] discharge/transition of care. Outcome: Adequate for Discharge [facility] 05-20-2022 Note Formatting of this n ote might be different from the original. Anne Dillard MD R10 Rm 1006 Jensen George Please let's have a clear order on how the nephrostomy site dressing need to be changed when the patient goes home so we provide teaching before his discharge Leon GALLARDO #[id number] Leon Cook RN [facility] 05-20-2022 History of Present illness Narrative Images from the original note were not included. [facility] Note: [facility] received the following discharge prescription(s): Medication reconciliation was completed with comparison to discharge reconciliation report. The prescription(s) will be delivered to the patient's bedside on 05/20/22. Total cost is $0. Yanira Her RPh,PharmD Specialty ([place]) [phone] [facility] [phone] [facility] [phone] David [phone] [place] [phone] Bedside Delivery ([facility]) [phone] Attending I saw George Styles at the [facility] on 05/19/2022. I saw and [...] Q24H Nishant Gamez MD Stopped at 05/18/22 1807 faMOTIdine (PEPCID) tablet 20 mg 20 mg [...] Q12H Nishant Gamez MD 17 g at 05/18/22 195 senna (SENOKOT) tablet 8.6 mg 8.6 mg [...] Daily Progress Note Patient: George Styles, 1970, [id number] Physician: Liam Julian MD, PGY-3, Pager #[phone], [email or web address] Subjective/Interval History: No acute events overnight. Passed stone this morning, will send to lab for analysis. Overall reporting improvement in abdominal pain. Objective: Vitals: 05/19/22 0400 BP: 174/77 Pulse: 62 Resp: 16 Temp: 97.8 F (36.6 C) O2 Device: room air (05/19/22 0400) Flow (L/min): 3 (05/17/22 1719) Gen: NAD, [...] if transplant nephrology still thinks appropriate. Daya Saldana MD (Peggy) Division of Hospital Medicine Pager [phone] Attending I saw George Styles at the [facility] on 05/18/2022. 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 Daya Saldana MD (Peggy) Division of Hospital Medicine Pager [phone] Internal Medicine Daily Progress Note Patient: George Styles, 1970, [id number] Physician: Nishant Gamez MD, PGY2, Pager #[phone], [email or web address] Subjective/Interval History: Worsening creatinine this morning with [...] today - Oxycodone 5 or 10 mg AFYE on transplanted kidney: This is most likely [...] MD (Peggy) Division of Hospital Medicine Pager [phone] Attending I saw George Styles at the [facility] on 05/17/2022. I saw and [...] of chart and discussion with treatment team, Machine Assembler For Puller Over has not identified needs at this time. [...] follow. Introduced self and role of the realty specialist to patient. Provided emotional and spiritual support and the patient responded by sharing their experience and discussed the following: - Spirituality/Christianity Affiliation: As a kid attended [employer] mu-ism but not a strong identity now - Family support - pt's brothers live close by [place] provided: - Supportive presence - Active listening - Validation of feelings/emotions Patient encouraged to request a realty specialist as needed. Chaplains are available in-house 24 hours a day and 7 days a week. For urgent matters in [facility], please page [phone]. If the request is not urgent, please enter a consult. Consults are responded to within 24 hours. Angie Singh Mdiv, [facility] Burn Unit and Transplant [place] [address] [address] [facility] [place] Kirk [phone] [email or web address] [email or web address] [facility] Pager [phone] 22/06 Pager ,[place], and Brock 1500 22/06 aDvid Pager [phone] 05/16/22 1129 Clinical Encounter Type Visited With Patient Visit Type Introduction Pastoral Time Spent 15 min Referral Other (See Comment) (Rounding) Spiritual Assessment Spiritual Observation Spirituality helpful;Identifies as (see comment) (Zoroastrianism) Emotional Observation Coping well Hope Observation Hopeful and accepting Support Observation By Family Interventions Provided Active listening;Supportive presence Facilitated Verbalization of feelings;Sharing of life story;Identifying support system Explored Expectations Diagnostic Assistant Education Diagnostic Assistant Service Available Yes Educated Patient Outcomes Patient Outcomes Articulated purpose/meaning Plan of Care Continue Visiting PRN Internal Medicine Daily Progress Note Patient: George Styles, 1970, [id number] Physician: Nishant Gamez MD, PGY2, Pager #[phone], [email or web address] Subjective/Interval History: Overall feeling okay this morning. [...] UTI while waiting on urinary cx. 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 [...] Supervision Transfer Assessment: Sit to Stand Transfer Masterson Level: Sit->Stand: independent Skilled Intervention/Details: Sit->Stand: x1 from EOB Stand to Sit Transfer Masterson Level: Stand->Sit: supervision Assistive Device: Stand->Sit: armed chair Skilled Rationale: Controlled descent for sitting, Verbal cues Gait/Functional Mobility: Gait Assessment Masterson Level: Gait: supervision Assistive Device: Gait: gait belt Gait Distance (feet): 200 Gait Deviations Identified: decreased grace, decreased step length, decreased stride length Gait Skilled Rationale: verbal, upright posture Skilled Intervention/Details - Gait: Pt with steady gait without LOB or complaints of SOB. Stairs: Stairs Assessment Masterson Level: Stair Negotiation: stand-by assist Assistive Device: Stair Negotiation: gait belt, left rail (ascending) Number of stairs: 9 Stairs Skilled Rationale: reciprocal pattern Outcome Score(s): CURRENT [facility] Basic Mobility Inpatient Short Form Turning over in bed: 4 - No Assistance Sitting/standing from chair: 4 - No Assistance Moving from lying on back to sittin - No Assistance Moving to and from bed to chair: 4 - No Assistance Walk in hospital room: 3 - A Little Assistance Climbing 3-5 steps with a railin - A Little Assistance CURRENT [facility] Mobility Raw Score: 22 CURRENT [facility] Mobility Functional Limitation/Modifier: 20.91% Currently Impaired in [...] reported no concerns with discharging home with [place] support. 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 IADL History IADLs: independent Primary Language: Trinidadian Home Management Skills: independent Meal Prep Responsibility: [...] Assessment: Transfer Assessment: Sit to Stand Transfer Masterson Level: Sit->Stand: independent Skilled Rationale: Cues for increased safety Skilled Intervention/Details: Sit->Stand: x1 EOB Stand to Sit Transfer Masterson Level: Stand->Sit: supervision Assistive Device: Stand->Sit: gait belt, armed chair Skilled Rationale: Verbal cues, Controlled descent for sitting, Cues for increased safety Skilled Intervention/Details: Stand->Sit: cues for hand placement and controlled descent Functional Mobility: Functional Mobility Masterson Level: Functional Mobility/Gait: stand-by assist Assistive Device: Functional Mobility/Gait: gait belt Functional Mobility Distance: Distance needed for limited community mobility Functional Mobility Deficits: Activity tolerance, Balance, Decreased step length, Generalized weakness Functional Mobility Skilled Rationale: Verbal cues, Facilitate postural control Skilled Intervention/Details - Functional Mobility/Gait: cues for upright posture Outcome Score(s): CURRENT [facility] Daily Activity Inpatient Short Form Putting on/Taking Off Lower Body Clothin - A Little Assistance Bathin - A Little Assistance Toiletin - A Little Assistance Putting on/Taking Off Upper Body Clothin - No Assistance Groomin - No Assistance Eatin - No Assistance CURRENT [facility] Activity Raw Score: 21 CURRENT [facility] Activity Functional Limitation/Modifier: 32.79% Currently Impaired in [...] DAY SURGERY MAIN OR KIDNEY TRANSPLANT W/O [place] C[place] NEPHRECTOMY N/A 04/12/2020 Laterality: N/A; Surgeon: LU [...] by: Mel Norman OT, OTR/L License #: [id number] pager # [phone] 05/20/2022 Upon discontinuation of Acute Care Occupational Therapy Services or patient discharge from the hospital this note represents the current Occupational Therapy Discharge Summary. documented in this encounter [facility] 05-20-2022 Hospital course Narrative Discharge Summary [...] during his recent hospital stay at [facility]. As you may know, George Styles, [...] Saldana MD Division of Hospital Medicine p: [phone] f: [phone] CONSULTS DURING ADMISSION: IP CONSULT TO SURGERY - UROLOGY IP CONSULT TO NEPHROLOGY - TRANSPLANT (MEDICINE) IP CONSULT TO INTERVENTIONAL RADIOLOGY IP CONSULT TO PHYSICAL THERAPY IP CONSULT TO OCCUPATIONAL THERAPY IP CONSULT TO PHARMACY BEDSIDE DISCHARGE MED DELIVERY IMAGING / PROCEDURES / RESULTS: Should you require further information or copies of results or reports please contact Medical Information Management @ [phone] LABS AT TIME OF DISCHARGE: Lab Results [...] [place] [address] / [place] [address] MEDICATIONS: Discharge Orders CT ABDOMEN/PELVIS WITHOUT CONTRAST [...] CAPS Generic drug: docusate Follow-up: Zuly Bruno, SAND SCREENER OPERATOR [address] [facility] [id number] Schedule an appointment as soon as possible for a visit Follow-up appointment with your, primary care physician within 7-10 days, after discharge. [address] [facility] [phone] Follow up The department of urology will [...] Dept Phone 06/04/2022 10:40 AM IR CLINIC [facility] Interventional Radiology Clinic [phone] 06/27/2022 1:30 PM [facility] Department of Radiology Arrive at: Arrive to First Floor Registration Desk [phone] 06/27/2022 2:40 PM Ryan Yepez [facility] Arrive at: Arrive to 2nd Floor, Registration [address] 10/31/2022 1:00 PM Steve Latham [facility] Transplant [facility] [phone] 01/16/2023 9:40 AM TRANSPLANT HEPATOLOGY 3, [facility] Transplant [facility] [phone] Associated attestation - Daya Saldana MD - [...] including counseling and coordination of care. Daya (Nunu) Jeff Saldana MD Division of Hospital Medicine Pager [phone] documented in this encounter [facility] 05-20-2022 Hospital Discharge instructions Giulia Cavazos [...] be changed by Interventional Radiology. Please call [phone] to schedule this appointment and with any questions or concerns you may have regarding the nephrostomy tube. If you have questions or concerns, please call Interventional Radiology at SOMEONE FROM INTERVENTIONAL RADIOLOGY WILL CALL YOU FOR A FOLLOW UP IN THE IR CLINIC Giulia Cavazos RN Nurse Coordinator Interventional Radiology Interventional Radiology Outpatient scheduling documented in this encounter [facility] 05-19-2022 Note Formatting of this [...] Ongoing Goal: Interdisciplinary Rounds/Family Conf Outcome: Ongoing [facility] 05-19-2022 Note Formatting of this n ote might be different from the original. Discussed with [facility] re: possible urine culture performed at their facility. However, based on urinalysis completed at that time, which was only notable for hematuria, culture was not performed and sample no longer feasible for culture. Liam Julian MD Internal Medicine/Pediatrics, PGY-3 [facility] 05-18-2022 Note Formatting of this n ote might be different from the original. 2002: IHIS message sent to Dr Justyn Wen, regarding patient passing a small kidney stone, about the size of pea. MD notified. Stone left in strainer in pt bathroom. 0: IHIS message sent to Dr Justyn Wen, regarding pt BP 174/77. [facility] 05-18-2022 Note Formatting of this [...] outcomes by discharge/transition of care. Outcome: Ongoing [facility] 05-18-2022 Note Formatting of this [...] becomes hyponatremic, NS should instead be used. [facility] Work Phone: 05-18-2022 Note Formatting of this n ote might be different from the original. IHIS chat sent to Dr Tray Quintana, regarding pt BP 190/86. Pt complaining of pain at site of neph tube. PRN pain medication given per order parameters. Pt denies any other symptoms at this time. MD notified and aware. [facility] 05-17-2022 Note Formatting of this n ote might be different from the original. At 0900, I rounded with Dr. Gamez and Dr. Saldana. At that time I checked Mr. Styles's vital signs. His pulse oximeter was low and he was tachypneic. Verbal order at bedside to put nasal cannula on starting at 2liters oxygen and to provide incentive spirometer. [facility] 05-17-2022 Note Formatting of this n ote might be different from the original. Interventional Radiology procedure completed with IR Attending Dr. Heart / Dr. Le of percutaneous right nephrostomy tube placement transplant kidney 10.2 Fr Griffin acosta Pt tolerated procedure with moderate sedation local numbing agent . Transported to inpatient after phase I recovery. Post procedure orders in place. [facility] 05-16-2022 Note Formatting of this n ote might be different from the original. At 1530, I text chavad Kaitlynn Gomez MD that patient has only had 25ml urine output in myers this afternoon. [facility] 05-16-2022 Note Formatting of this [...] with questions. Evan Byrd MD Urology, PGY-2 #[id number] [facility] Work Phone: 05-16-2022 Note Formatting [...] care will be discharge to home. [facility] 05-16-2022 Consult note Associated Order (s): IP CONSULT TO NEPHROLOGY - TRANSPLANT (MEDICINE) I saw George Styles at the [facility] on 05/16/2022. Reason for Consultation: [...] he was given flomax and sent home. [place] better but noticed more pain and decreased [...] best assessment and recommendations. Maxi Pringle MD [facility] Work Phone: 05-16-2022 Consult note Associated Order (s): IP CONSULT TO NEPHROLOGY - TRANSPLANT (MEDICINE) I saw George Styles at the [facility] on 05/16/2022. Reason for Consultation: [...] he was given flomax and sent home. [place] better but noticed more pain and decreased [...] orthotopic (N/A, 04/12/2020); and kidney transplant w/o [place] nephrectomy (N/A, 04/12/2020). 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 The [place] kidneys are progressively atrophic bilaterally compared to [...] of 06/14/2020 are no longer present. The [place] distal right ureter is decompressed beyond this [...] with surgical history for renal graft and [place] right urinary drainage, as a discrete ureteroneocystostomy is not identified, and the graft may be draining via a ureteroureterostomy. Urology consultation recommended. 3. The [place] kidneys are bilaterally atrophic, with right renal sinus calcifications consistent with nonobstructing right [place] renal calculi up to 6 mm. Normal [...] PGY-3, Department of Urologic Surgery Pager #: [phone] Associated attestation - Ryan Yepez MD - [...] continue flomax documented in this encounter [facility] 05-16-2022 Note Formatting of this n [...] Psychosocial Response to Acute Pain Flowsheets (Taken 05/16/2022 0442) Supportive Measures: active listening utilized decision-making supported Trust Relationship/Rapport: care explained choices provided [facility] 05-16-2022 Note Formatting of this n ote might be different from the original. On admission to 0, a dual RN initial assessment of skin condition was performed by Kallie Lorenzana RN and Sheri Arguelles RN. Skin Assessment: WDL Jose Score: 20 LDA Added:N Kallie Lorenzana RN [facility] 05-15-2022 Emergency department Note Report given to Kallie RN at 10 [facility] 05-15-2022 Emergency department Note Report [...] diagnosed Thursday and was sent home with [facility]. He went back to that ED [...] 04/12/2020 Laterality: N/A; Surgeon: LU Palma; Location: [facility] SAME DAY SURGERY MAIN OR KIDNEY TRANSPLANT W/O [place] NEPHRECTOMY N/A 04/12/2020 Laterality: N/A; Surgeon: LU Palma; Location: [facility] SAME DAY SURGERY MAIN OR [...] Schneider MD Resident 05/15/222030 Pt arrives from [facility] with kidney stones. Pt states he [...] in 03/2020. documented in this encounter [facility] 05-15-2022 History and physical note Internal Medicine Admission History & Physical Patient: George Styles, 1970, [id number] Physician: Evan Bennett MD, PGY1, Pager #[phone], GM 4 service Date of face to [...] 04/12/2020 Laterality: N/A; Surgeon: LU Palma; Location: [facility] SAME DAY SURGERY MAIN OR KIDNEY TRANSPLANT W/O [place] NEPHRECTOMY N/A 04/12/2020 Laterality: N/A; Surgeon: LU Palma; Location: [facility] SAME DAY SURGERY MAIN OR [...] erythema: Skin: No jaundice or rash Neuro: braid maker 3-7, 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 Strength grossly [...] dilation of the calyces may represent narrowing/partial [id number] ofthe ureter and mild hydronephrosis or sequela [...] MD Division of Hospital Medicine [phone] [facility] Work Phone: 05-15-2022 History and physical note Internal Medicine Admission History & Physical Patient: George Styles, 1970, [id number] Physician: Evan Bennett MD, PGY1, Pager #[phone], GM 4 service Date of face to [...] DAY SURGERY MAIN OR KIDNEY TRANSPLANT W/O [place] C[place] NEPHRECTOMY N/A 04/12/2020 Laterality: N/A; Surgeon: LU Palma; Location: [facility] SAME DAY SURGERY MAIN OR [...] erythema: Skin: No jaundice or rash Neuro: braid maker 3-7, 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 Strength grossly [...] dilation of the calyces may represent narrowing/partial [id number] ofthe ureter and mild hydronephrosis or sequela [...] Medicine [id number] documented in this encounter [facility] 05-15-2022 Emergency department Note Bladder scan with Dr Villatoro at bedside, 14ml noted [facility] 05-15-2022 Consult note Associated Order (s): [...] orthotopic (N/A, 04/12/2020); and kidney transplant w/o [place] nephrectomy (N/A, 04/12/2020). 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 The [place] kidneys are progressively atrophic bilaterally compared to [...] of 06/14/2020 are no longer present. The [place] distal right ureter is decompressed beyond this [...] with surgical history for renal graft and [place] right urinary drainage, as a discrete ureteroneocystostomy is not identified, and the graft may be draining via a ureteroureterostomy. Urology consultation recommended. 3. The [place] kidneys are bilaterally atrophic, with right renal sinus calcifications consistent with nonobstructing right [place] renal calculi up to 6 mm. Normal [...] PGY-3, Department of Urologic Surgery Pager #: [phone] Associated attestation - Ryan Yepez MD - [...] before surgical intervention --may continue flomax [facility] Work Phone: 05-15-2022 Emergency department Note Advised Dr Schneider concerning no urine output via myers catheter. [facility] 05-15-2022 Physician Emergency department Note ED [...] plan of care. Gian Villatoro MD 05/15/222003 [facility] Work Phone: 05-15-[address] Schneider made aware of only 30 ml urine via myers since arrival to room. [facility] 05-15-2022 Physician Emergency department Note [...] 04/12/2020 Laterality: N/A; Surgeon: LU Palma; Location: [facility] SAME DAY SURGERY MAIN OR KIDNEY TRANSPLANT W/O [place] NEPHRECTOMY N/A 04/12/2020 Laterality: N/A; Surgeon: LU Palma; Location: [facility] SAME DAY SURGERY MAIN OR [...] incorrections. Matt Schneider MD Resident 05/15/222030 [facility] Work Phone: 05-15-2022 Emergency department Note Pt arrives from [facility] with kidney stones. Pt states he [...] had liver and kidney transplant in 03/2020. [facility] 03-14-2022 History of Present illness [...] Required: No Mailing/Pickup Date: 03/17/2022 Shipping Address: [address] [place] [address] Contact Info: Specialty ([place]) [phone] [facility] [phone] [facility] [phone] David [phone] Bedside Delivery ([facility]) [phone] documented in this encounter [facility] 06-14-2021 History of Present illness [...] Goal Progress: Satisfactory Contact Info: Specialty ([place]) [phone] [facility] [phone] [facility] [phone] [facility] [phone] Bedside Delivery ([facility]) [phone] [facility]: Call Information: Date [...] Location: Home Signature Required: Yes Shipping Address: [address] [place] [address] Contact Info: Specialty ([place] [phone] Jakob [phone] [facility] [phone] [facility] [phone] Bedside Delivery ([facility]) [phone] documented in this encounter [facility] Evaluation note Diagnosis FAYE (acute kidney injury)- Primary Acute kidney failure, unspecified Hydronephrosis due to obstruction of ureteral orifice Hydronephrosis due to obstruction of ureteral orifice FAYE (acute kidney injury) Acute kidney failure, unspecified [facility] Diagnosis Follow-up exam- Primary Unspecified follow-up examination [facility] Diagnosis Immunosuppressed status- Primary Unspecified disorder of immune mechanism Kidney replaced by transplant Liver replaced by transplant Abnormal blood chemistry Other abnormal blood chemistry High risk medication use Encounter for long-term (current) use of other medications Aftercare following organ transplant Liver transplant recipient [facility] Diagnosis Attention to nephrostomy- Primary [facility] Diagnosis Other hydronephrosis- Primary [facility] Diagnosis FAYE (acute kidney injury) Acute kidney failure, unspecified [facility] Diagnosis Other hydronephrosis- Primary -donor kidney transplant recipient Kidney replaced by transplant [facility] Diagnosis Other hydronephrosis [facility] Diagnosis 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) Encounter for screening for malignant neoplasm of prostate Special screening for malignant neoplasm of prostate [facility] Diagnosis Abnormal blood chemistry- Primary Other abnormal blood chemistry Liver transplant recipient Kidney replaced by transplant Immunosuppressed status Unspecified disorder of immune mechanism Aftercare following organ transplant [facility] Diagnosis Kidney replaced by transplant- Primary [facility] Diagnosis Immunosuppressed status- Primary Unspecified disorder of immune mechanism Kidney replaced by transplant Aftercare following organ transplant High risk medication use Encounter for long-term (current) use of other medications Other general symptoms and signs Abnormal blood chemistry Other abnormal blood chemistry Hypertension secondary to other renal disorders [facility] Histoplasmosis- Primary Histoplasmosis, unspecified [...] Fever, unspecified [facility] Diagnosis Bilateral lower extremity edema- Primary 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) Atherosclerosis 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) Atherosclerosis of aorta Obesity (BMI 30-39.9) DARLENE (obstructive sleep apnea) Obstructive sleep apnea (adult) (pediatric) Tremor Abnormal involuntary movements Immunocompromised (CMS/HCC) Unspecified immunity deficiency Primary hypertension (CMS/HCC) Unspecified essential hypertension Shortness of breath documented in this encounter [facility]* Diagnosis Pleural effusion on right- [...] specified pre-operative examination [facility] Consultation (Routine) - New Request Specialty Diagnoses / Procedures Referred By Deni edwards Referred To Contact Interventional Radiology Diagnoses Hydronephrosis due to obstruction of ureteral orifice Daya Saldana MD [address] [place] [address] Referral ID Status Reason Start Date Expiration Date V isits Requested Visits Authorized [id number] New Request 05/18/2022 06/12/2023 1 1 * Radiology (Emergency) - New Request Specialty Diagnoses / Procedures Referred By Contac t Referred To Contact Procedures US RENAL TRANSPLANT SCAN Daya Saldana MD [address] [place] [address] Referral ID Status Reason Start Date Expiration Date V isits Requested Visits Authorized [id number] New Request 05/16/2022 06/10/2023 1 1 * Consultation (Routine) - New Request Specialty Diagnoses / Procedures Referred By Contac t Referred To Contact Urology Diagnoses FAYE (acute kidney injury) Ryan Yepez MD [address] [place] [address] [address] [place] [address] Referral ID Status Reason Start Date Expiration Date V isits Requested Visits Authorized [id number] New Request 05/16/2022 06/10/2023 1 1 * MRI/CAT Scan (Routine) - New Request Specialty Diagnoses / Procedures Referred By Contac t Referred To Contact Diagnoses FAYE (acute kidney injury) Procedures CT ABDOMEN/PELVIS WITHOUT CONTRAST CHG CT SCAN,ABDOMENT AND PELVIS,W/O CONTRAST Ryan Yepez MD [address] [place] [address] [address] [place] [address] Referral ID Status Reason Start Date Expiration Date V isits Requested Visits Authorized [id number] New Request 05/16/2022 06/10/2023 1 1 * (Routine) - Pending Review Specialty Diagnoses / Procedures Referred By Contac t Referred To Contact Procedures PLATELET MONITORING PER PROTOCOL Daya Saldana MD [address] [place] [address] Referral ID Status Reason Start Date Expiration Date V isits Requested Visits Authorized [id number] Pending Review 05/15/2022 06/09/2023 1 1 * (Routine) - Pending Review Specialty Diagnoses / Procedures Referred By Contac t Referred To Contact Procedures DVT/VTE RISK ASSESSMENT Daya Saldana MD [address] [place] [address] Referral ID Status Reason Start Date Expiration Date V isits Requested Visits Authorized [id number] Pending Review 05/15/2022 06/09/2023 1 1 * (Routine) Specialty Diagnoses / Procedures Referred By Contac t Referred To Contact Evan Bennett MD [address] [place] [address] Referral ID Status Reason Start Date Expiration Date Visits Re quested Visits Authorized * (Routine) Specialty Diagnoses / Procedures Referred By Contac t Referred To Contact Evan Bennett MD [address] [place] [address] Referral ID Status Reason Start Date Expiration Date Visits Re quested Visits Authorized [facility] for referral (narrative)* Consultation (Routine) - New Request Specialty Diagnoses / Procedures Referred By Contac t Referred To Contact Sleep Medicine Diagnoses Hypoxia Kevin Sage MD [address] [place] [address] Referral ID Status Reason Start Date Expiration Date V isits Requested Visits Authorized [id number] New Request 09/10/2023 10/04/2024 1 1 * MRI/CAT Scan (Routine) - New Request Specialty Diagnoses / Procedures Referred By Contac t Referred To Contact Diagnoses Histoplasmosis Procedures CT CHEST WITHOUT CONTRAST CHG DIAGNOSTIC COMPUTED TOMOGRAPHY THORAX W/O ROBERTT Kevin Sage MD [address] [place] [address] Referral ID Status Reason Start Date Expiration Date V isits Requested Visits Authorized [id number] New Request 09/10/2023 10/04/2024 1 1 * Radiology (Routine) - New Request Specialty Diagnoses / Procedures Referred By Contac t Referred To Contact Procedures US RENAL TRANSPLANT SCAN Steve aLtham MBBS [address] [place] [address] Referral ID Status Reason Start Date Expiration Date V isits Requested Visits Authorized [id number] New Request 08/29/2023 09/22/2024 1 1 * (Routine) - New Request Specialty Diagnoses / Procedures Referred By Contac t Referred To Contact Procedures PLATELET MONITORING PER PROTOCOL Steve Latham MBBS [address] [place] [address] Referral ID Status Reason Start Date Expiration Date V isits Requested Visits Authorized [id number] New Request 08/28/2023 09/21/2024 1 1 * (Routine) - New Request Specialty Diagnoses / Procedures Referred By Contac t Referred To Contact Procedures DVT/VTE RISK ASSESSMENT Steve Latham MBBS [address] [place] [address] Referral ID Status Reason Start Date Expiration Date V isits Requested Visits Authorized [id number] New Request 08/28/2023 09/21/2024 1 1 [facility] Instructions * Patient Instructions - Christin Elizabeth APRN-CNP - 10/19/2018 9:21 AM EST You should take an extra dose of the lactulose as needed so that you are having 3-4 bowel movementsdaily. You should start the chemical dependency counseling as soon as possible. If you have questions, call the transplant web content & social media manager Melania Pierson. in this encounter* Patient Instructions - Sophie Cary RN - 10/12/2018 11:09 AM EST You have been seen in the pre-transplant evaluation clinic by Dr. Restrepo and Sophie Cary. Sophie Cary is your pre-asset coordinator she can be reached at [phone] at any time for questions during the pre-transplant process. Your evaluation is complete pendin. Abdominal ultrasound. 2. 6 minute walk test. 3. Cardiology evaluation. Additionally, your senior design engineering specialist will recommend testing to screen for coronary artery disease. This will be scheduled for you after your cardiology visit. 4. Your coordinator will be requesting record from your last dental visit, colonoscopy and EGD. 5. Please work to complete social work recommendations. Your web content & social media manager will be contacting you to follow up on your progress. 6. You have also been referred for a kidney transplant. An appointment will be scheduled for you sari evaluated in the kidney transplant clinic after you have satisfied requirements dictated by [employer] company. Once your testing is complete, we will review your case at patient selection committee for possiblelisting on the liver transplant waitlist. in this encounter History of Present Illness * BorisLindsay shaw - 10/19/2018 9:00 AM EST Formatting of [...] problems since my last visit? Last Colonoscopy 07/18 Result Last EGD Result Have you had [...] ___ Other Name MRN * Christin Elizabeth, DOCUMENT MANAGEMENT TECHNICIAN-SAND SCREENER OPERATOR - 10/19/2018 9:00 AM EST Formatting of this note may be different from the original. History of Present Illness: Chief Complaint Patient presents with Follow-up Cirrhosis George Styles is a 48 y.o. male who presents to the [facility] today regarding his diagnosis/chief complaint(s) of Cirrhosis secondary to ETOH, with ESRD follows with Dr. Orr. Currently undergoing evaluation for liver/kidney transplant. Has been seen in transplant clinic for eval. Still undergoing pre testing. Diagnosed in April 2018. Last drink was immediately prior to hospital admission in [place] for ACLF. Hospital course notable for ARF [...] (human immunodeficiency virus infection); Hyperlipidemia; Hyperthyroidism; Hypothyroidism; [place] (myocardial infarction); Migraine; DARLENE (obstructive sleep apnea); [...] 12 weeks. in this encounter* Melania Pierson JAZLYNEZE - 10/12/2018 10:00 AM EST Formatting of this note may be different from the original. Transplant Recipient Psychosocial Evaluation Demographics: Patient is a 48 y.o., White, Single, male, who presented for a liver and kidney transplant evaluation. Pt was AOx3. Transplant Novelty Balloon Assembler And Packer role/function was explained and reviewed. The patient was informed that the results of this assessment will be shared with the referring provider and the transplant team. The patient verbalized understanding of this information. The [facility] psychosocial assessment consent form has been explained to patient and has been signed. Pt is completing this evaluation with brother (David) in the Outpatient setting. SWK educated pt on the benefits of completing/filing advanced directives and resources were offered. Pt identifies with CONGREGATIONAL yazidism. Pt confirms being a [place] Citizen. Pt.'s primary language is Trinidadian. Pt confirms the ability to read,write, and understand Trinid[place]. Pt denies potential donors. Donor cards and [...] has valid license, does not regularly drive (SAND SCREENER OPERATOR recommends that he not to drive). [...] with organ related disease etoh cirrohosis April in [facility] for thirty days. Pt reports [...] as well as referred him to pre asset coordinator. Pt and support demonstrated moderate understanding [...] minutes away. 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 He confirms being comfortable asking for [...] in 2010, he was employed by the [employer]. He has access to SSDI payment (SSDI starts in November) in regards to financial means pre/ post-transplant. Pt confirms (meeting bills currently, ) being able to meet daily needs. Patient's brother asking for additional information on community resources, food stamps and [place]. Refer him to pt.'s dialysis center and the [facility]. Hereports access to Medicaid. Pt. denies [...] court ordered treatment after a DUI charge [facility] in [place], court ordered treatment in 2001 and in [...] by patient from his primary medical provider- SAND SCREENER OPERATOR patient was noted as attending an [...] new visit Date of service: 10/12/2018 -Referring staff attorney for today's consult: -Primary Care Provider: Zuly Bruno CC: Chief Complaint Patient presents with Liver Recipient Evaluation History of Present Illness George Styles is a 48 y.o. male who presents to the [facility] liver transplant surgery clinic today for evaluation [...] EST Timed up and go 9.9 seconds Tie Loader Left 52.8 pounds Right 44.9 pounds Waist circ 38.5 inches * Sophie Cary, SAMI - 10/12/2018 10:00 AM EST Formatting of this note may be different from the original. Patient George Styles ([id number]), accompanied by his brother, was seen on [...] any further questions. Sophie GUERINN, RN Liver Telephone Maintainer Etiology: ETOH HCC: No ETOH: Yes Last [...] Yovani Orr MD [address] [address] Status Reason Specialty Diagnoses / Procedures Referred By Contact Referred To Contact New Request Diagnoses Cirrhosis of liver with ascites, unspecified hepatic cirrhosis type Procedures US ABDOMEN RUQ/LIVER/GB Yovani Orr MD [address] [address] Specialty Diagnoses / Procedures Referred By Contac t Referred To Contact Diagnoses FAYE (acute kidney injury) Procedures CT ABDOMEN/PELVIS WITHOUT CONTRAST CHG CT SCAN,ABDOMENT AND PELVIS,W/O CONTRAST Central Scheduling [address] [place] [address] Referral ID Status Reason Start Date Expiration Date V isits Requested Visits Authorized [id number] Pending Review 05/16/2022 06/10/2023 1 1 Specialty Diagnoses / Procedures Referred By Contac t Referred To Contact Diagnoses Other hydronephrosis Procedures FLUORO IMAGING FOR UROLOGY Ryan Yepez MD [address] [facility] [address] [place] [address] Referral ID Status Reason Start Date Expiration Date V isits Requested Visits Authorized [id number] New Request 07/07/2022 08/01/2023 1 1 Specialty Diagnoses / Procedures Referred By Contac t Referred To Contact Procedures DIRECT ADMIT REQUEST Steve Latham MBBS [address] [place] [address] Referral ID Status Reason Start Date Expiration Date V isits Requested Visits Authorized [id number] New Request 08/28/2023 09/21/2024 1 1 Specialty Diagnoses / Procedures Referred By Contac t Referred To Contact Radiology Diagnoses DARLENE (obstructive sleep apnea) Primary hypertension (CMS/HCC) Bilateral lower extremity edema Shortness of breath Procedures Echocardiogram 2D complete Zuly Bruno, BA [address] [place] [address] Referral ID Status Reason Start Date Expiration Date Visits Requested Visits Authorized [id number] Incomplete Perform Procedure 01/06/2024 07/04/2024 1 1 Specialty Diagnoses / Procedures Referred By Contac t Referred To Contact Procedures US IMAGING REGIONAL ANESTHESIA Kehinde Gutierrez MD [address] [place] [address] Referral ID Status Reason Start Date Expiration Date V isits Requested Visits Authorized [id number] New Request 01/22/2024 02/15/2025 1 1 Specialty Diagnoses / Procedures Referred By Contac t Referred To Contact Cardiovascular Medicine Diagnoses Heart failure, diastolic, acute Kelvin Pacheco MD, JOSHBS [address] 1st [place] [address] Referral ID Status Reason Start Date Expiration Date V isits Requested Visits Authorized [id number] New Request 01/20/2024 02/13/2025 1 1 Specialty Diagnoses / Procedures Referred By Contac t Referred To Contact Procedures US ABDOMEN LIVER DOPPLER US ABDOMEN LIVER TRANSPLANT DOPPLER Timothy Joseph MD [address] [facility] [address] [place] [address] Referral ID Status Reason Start Date Expiration Date V isits Requested Visits Authorized [id number] New Request 01/16/2024 02/09/2025 1 1 Specialty Diagnoses / Procedures Referred By Contac t Referred To Contact Procedures DVT/VTE RISK ASSESSMENT Kelvin Pacheco MD, MBBS [address] [place] [address] Referral ID Status Reason Start Date Expiration Date V isits Requested Visits Authorized [id number] New Request 01/16/2024 02/09/2025 1 1 Specialty Diagnoses / Procedures Referred By Contac t Referred To Contact Procedures PLATELET MONITORING PER PROTOCOL Kelvin Pacheco MD, MBBS [address] [place] [address] Referral ID Status Reason Start Date Expiration Date V isits Requested Visits Authorized [id number] New Request 01/16/2024 02/09/2025 1 1 Referral ID Status Reason Start Date Expiration Date V isits Requested Visits Authorized [id number] New Request 01/16/2024 02/09/2025 1 1 Specialty Diagnoses / Procedures Referred By Contac t Referred To Contact Procedures ECG Kelvin Pacheco MD, MBBS [address] [place] [address] Referral ID Status Reason Start Date Expiration Date V isits Requested Visits Authorized [id number] New Request 01/16/2024 02/09/2025 1 1 Advance Directives No Advanced Directives Records FoundDocuments on File Type Date Recorded Patient Child And Family Therapist Expl anation Advance Directives and Living Will Power of Adjunct Philosophy Faculty Latest Code Status on File Code Status [...] RUQ/LIVER/GB Yovani Orr MD [address] [address] Status Reason Specialty Diagnoses / Procedures Referre d By Contact Referred To Contact Denied Diagnoses Alcoholic cirrhosis, unspecified whether ascites present Pre-transplant evaluation for liver transplant Procedures MRI ABDOMEN WITH CONTRAST UT MRI, ABDOMEN W/CONTRAST Yovani Orr MD [address] [place] [address] [place] [address] Reason Comments Liver Recipient Evaluation Status Reason Specialty Diagnoses / Procedures Referred By Contact Referred To Contact New Request Transplant / Transplant Surgery Procedures PRE NEW PATIENT Yovani Orr MD [address] [place] [address] [place] [address] Alfredito Restrepo MD [address] [place] [address] Reason Comments Reschedule Reason Comments Outside Medical Records Request Reason Comments Social Work Follow-up Reason Comments Kidney Stone Specialty Diagnoses / Procedures Referred By Contac t Referred To Contact Diagnoses Obstructing kidney stone, s/p kidney transplant 2019 Daya Saldana MD [address] [place] [address] [facility] [address] [place] [address] Referral ID Status Reason Start Date Expiration Date Visits Re quested Visits Authorized [id number] 1 1 Reason Comments Follow-up Reason Comments Kidney Recipient Follow-up Liver Recipient Follow-up Reason Comments Consult Reason Comments New Patient Hospital follow up Specialty Diagnoses / Procedures Referred By Contac t Referred To Contact Urology Diagnoses hosp fu with [address] prior Procedures NEW TO DOC/RET PATIENT Zuly Bruno, SAND SCREENER OPERATOR [address] [place] [address] Ryan Yepez MD [address] [facility] [address] [place] [address] Referral ID Status Reason Start Date Expiration Date Visits Re quested Visits Authorized [id number] Closed 06/27/2022 07/22/2023 1 1 Specialty Diagnoses / Procedures Referred By Contac t Referred To Contact Diagnoses FAYE (acute kidney injury) Procedures CT ABDOMEN/PELVIS WITHOUT CONTRAST CHG CT SCAN,ABDOMENT AND PELVIS,W/O CONTRAST Central Scheduling [address] [place] [address] Referral ID Status Reason Start Date Expiration Date V isits Requested Visits Authorized [id number] Pending Review 05/16/2022 06/10/2023 1 1 Reason Comments Follow-up Specialty Diagnoses / Procedures Referred By Contac t Referred To Contact Urology Diagnoses 1 week fu post NT clamp Procedures RETURN PATIENT Zuly Bruno, SAND SCREENER OPERATOR [address] [place] [address] Ryan Yepez MD [address] [place] [address] [address] [place] [address] Referral ID Status Reason Start Date Expiration Date Visits Requested Visits Authorized [id number] Authorized - 07/07/2022 08/01/2023 2 2 Specialty Diagnoses / Procedures Referred By Contac t Referred To Contact Diagnoses Other hydronephrosis Procedures FLUORO IMAGING FOR UROLOGY Ryan Yepez MD [address] [place] [address] [address] [place] [address] Referral ID Status Reason Start Date Expiration Date V isits Requested Visits Authorized [id number] New Request 07/07/2022 08/01/2023 1 1 Specialty Diagnoses / Procedures Referred By Contac t Referred To Contact Urology Diagnoses 1 week fu post NT clamp Procedures RETURN PATIENT Zuly Bruno, SAND SCREENER OPERATOR [address] [place] [address] Ryan Yepez MD [address] [place] [address] [address] [place] [address] Referral ID Status Reason Start Date Expiration Date Visits Re quested Visits Authorized [id number] Closed 07/07/2022 08/01/2023 2 2 Reason Comments Liver Recipient Follow-up Reason Comments Kidney Recipient Follow-up Reason Comments Kidney Recipient Follow-up Specialty Diagnoses / Procedures Referred By Contac t Referred To Contact Diagnoses Kidney replaced by transplant Steve Latham MBBS [address] [place] [address] [facility] [address] [place] [address] Referral ID Status Reason Start Date Expiration Date Visits Re quested Visits Authorized [id number] 1 1 Specialty Diagnoses / Procedures Referred By Contac t Referred To Contact Diagnoses Pleural effusion on right PNEUMONIA- HX LIVER AND KIDNEY TRANSPLANT Kevin Sage MD [address] [place] [address] [facility] [address] [place] [address] Referral ID Status Reason Start Date Expiration Date Visits Re quested Visits Authorized [id number] 1 1 (unrecognized sect ion and content) No Status Records FoundNo Status Records FoundNo Status Records FoundNo Status Records FoundNo Status Records FoundNo Status Records Found INFORMATION SOURCE (unrecogn ized section and content) DATE CREATED AUTHOR 01/07/2020 Karlie Ureña [facility] DATE CREATED AUTHOR AUTHOR'S ORGANIZ ATION 01/27/2021 [facility] DATE CREATED AUTHOR AUTHOR'S ORGANIZ ATION 04/13/2023 [facility] DATE CREATED AUTHOR AUTHOR'S ORGANIZ ATION 05/11/2023 [facility] DATE CREATED AUTHOR AUTHOR'S ORGANIZ ATION 01/31/2024 [facility] DATE CREATED AUTHOR AUTHOR'S ORGANIZ ATION 02/12/2024 [facility] dical Specialists EPIC Care Teams (unrecognized sec tion and content) Glass Etcher Relationship Specialty Start Date End Date Zuly Bruno CNP PCP - General 07/19/18 Comfort Rivera, RPH [address] [facility] [address] [place] [address] Pharmacist Pharmacist 05/16/20 Angel Carpio RPh,PharmD Pharmacist Pharmacist 05/16/20 Te Leigh [facility],PharmD Pharmacist Pharmacist 01/09/21 Glass Etcher Relationship Specialty Start Date End Date Zuly Bruno CNP PCP - General 07/19/18 Comfort Rivera, [facility] [address] [facility] [address] [facility] [place] [address] Pharmacist Pharmacist 05/16/20 Angel Carpio, [facility],PharmD Pharmacist Pharmacist 05/16/20 Te Leigh [facility],PharmD Pharmacist Pharmacist 01/09/21 Glass Etcher Relationship Specialty Start Date End Date Zuly Bruno CNP PCP - General 07/19/18 Glass Etcher Relationship Specialty Start Date End Date Zuly Bruno CNP PCP - General 07/19/18 Glass Etcher Relationship Specialty Start Date End Date Zuly Bruno CNP PCP - General 07/19/18 Glass Etcher Relationship Specialty Start Date End Date Zuly Bruno CNP PCP - General 07/19/18 Glass Etcher Relationship Specialty Start Date End Date Zuly Bruno CNP PCP - General 07/19/18 Glass Etcher Relationship Specialty Start Date End Date Zuly Bruno SAND SCREENER OPERATOR PCP - General 07/19/18 Glass Etcher Relationship Specialty Start Date End Date Zuly Bruno CNP PCP - General 07/19/18 Glass Etcher Relationship Specialty Start Date End Date Zuly Bruno CNP PCP - General 07/19/18 Glass Etcher Relationship Specialty Start Date End Date Zuly Bruno CNP PCP - General 07/19/18 Glass Etcher Relationship Specialty Start Date End Date Zuly Bruno CNP PCP - General 07/19/18 Glass Etcher Relationship Specialty Start Date End Date Zuly Bruno CNP PCP - General 07/19/18 Glass Etcher Relationship Specialty Start Date End Date BrianlatishaZuly tipton CNP PCP - General 07/19/18 Glass Etcher Relationship Specialty Start Date End Date LexielydialatishaZuly tipton CNP PCP - General 07/19/18 Glass Etcher Relationship Specialty Start Date End Date BrianlatishaZuly tipton CNP PCP - General 07/19/18 Glass Etcher Relationship Specialty Start Date End Date Lexielydiajose e Zuly, SAND SCREENER OPERATOR PCP - General 07/19/18 Evan White DO [address] [place] [address] Infectious Disease Infectious Disease 09/09/23 Glass Etcher Relationship Specialty Start Date End Date Kiana ROB Chairez PCP - General 07/19/18 Evan White DO [facility] [place] [address] Infectious Disease Infectious Disease 09/09/23 Glass Etcher Relationship Specialty Start Date End Date Zuly Bruno CNP PCP - General 07/19/18 Evan White DO [facility] [place] [address] Infectious Disease Infectious Disease 09/09/23 Glass Etcher Relationship Specialty Start Date End Date Momo Verdugo MD PCP - General Family Medicine 05/21/23 Glass Etcher Relationship Specialty Start Date End Date Momo Verdugo MD PCP - General Family Medicine 05/21/23 Glass Etcher Relationship Specialty Start Date End Date Momo Verdugo MD PCP - General Family Medicine 05/21/23 Glass Etcher Relationship Specialty Start Date End Date Zuly Bruno CNP PCP - General 07/19/18 Evan White DO [facility] [place] [address] Infectious Disease Infectious Disease 09/09/23 Glass Etcher Relationship Specialty Start Date End Date Zuly Bruno CNP PCP - General 07/19/18 Evan White DO [address] [place] [address] Infectious Disease Infectious Disease 09/09/23 Glass Etcher Relationship Specialty Start Date End Date Zuly Bruno CNP PCP - General 07/19/18 Evan White DO [address] [place] [address] Infectious Disease Infectious Disease 09/09/23 Glass Etcher Relationship Specialty Start Date End Date Zuly Bruno CNP PCP - General 07/19/18 Evan White DO [address] [place] [address] Infectious Disease Infectious Disease 09/09/23 Scheduled Active and Recently Administ ered Medications (unrecognized section and content) Medication Order 05/18/2022 05/19/2022 05/20/2022 allopurinol (ZYLOPRIM) tablet 100 mg 100 mg, Oral, DAILY, First dose (after last modification) on Thu05/17/22 at 0900, Until Discontinued 806 (Given - Provider: Mel Hampton RN) 804 (Given - Provider: Josey Braun, RN) 930 (Given - Provider: Leon Cook, RN) amLODIPine (NORVASC) tablet 5 mg 5 mg, Oral, DAILY, First dose on Thu05/16/22 at 0900, Until Discontinued 806 (Given - Provider: Mel Hampton RN) 08 (Given - Provider: Josey Braun, SAMI) 0932 (Given - Provider: Leon Cook, RN) aspirin chewable tablet 81 mg 81 mg, Oral, DAILY, First dose on Thu05/16/22 at 0900, Until Discontinued 0807 (Given - Provider: Mel Hampton RN) 0805 (Given - Provider: Josey Braun, RN) 09 (Given - Provider: Leon Cook, SAMI) atorvastatin [...] dose on Thu05/16/22 at 0900, Until Discontinued 806 (Given - Provider: Mel Hampton RN) 08 (Given - Provider: Josey Braun RN) 931 (Given - Provider: Leon Cook, SAMI) gabapentin [...] 0700 0742 ($$New Bag$$ - Provider: Leon Cook, RN)1035 (Stopped - Provider: Leon Cook, RN)1322 (Stopped - Provider: Leon Cook, RN) mycophenolate sodium (MYFORTIC) tablet DR 360 [...] Mel Hampton RN - Reason: Patient with symptoms)1959 (Given - Provider: Carolyn Isaac RN) 1136 [...] half swallowed separately. 1754 (Given - Provider: Josye Braun RN) senna (SENOKOT) tablet 8.6 mg [...] MD)1999 (Given - Provider: Carolyn Isaac RN) 0805 (Given - Provider: Josey Braun RN)205 (Given - Provider: Carolyn Isaac RN) 0931 [...] Hampton RN) 0805 (Given - Provider: Josey rBaun RN) 0933 (Given - Provider: Leon Cook [...] RN) 0825 (Given - Provider: Josey Braun RN)210 (Given - Provider: Carolyn Isaac RN) oxyCODONE HCl (ROXICODONE) tablet 10 mg(Linked Group 2) 10 mg, Oral, EVERY 4 HOURS NEEDED, Starting on Thu05/16/22 at 0614, Until Thu05/20/22 at 2110, Severe Pain 0338 (Given - Provider: Carolyn Isaac, SAMI)0806 (Given - Provider: Mel Hampton, SAMI) 0825 (See Alternative - Provider: Josey Braun RN)210 (See Alternative - Provider: Carolyn Isaac RN) [...] 0957 (Given - Provider: Cheyanne Mcdonough RN) amLODIPine (NORVASC) tablet 5 mg 5 mg, Oral, EVERY 24 HOURS, First dose on Thu09/03/23 at 2100, Until Discontinued 2035 (Given - Provider: Girish Nunez RN) 2024 (Given - Provider: Carolyn Plasencia RN) aspirin chewable tablet 81 mg 81 mg, Oral, DAILY, First dose on Thu08/29/23 at 0900, Until Discontinued 752 (Given - Provider: Aixa Holden RN) 08 (Given - Provider: Terra Heart RN) 0957 (Given - Provider: Cheyanne Mcdonough RN) Atorvastatin (LIPITOR) tablet 20 mg 20 mg, Oral, DAILY AT BEDTIME, First dose on Thu08/28/23 at 2100, Until Discontinued 2099 (Hold - Provider: Girish Nunez RN - Reason: Other) 2099 (Automatically Held) 1644 (Unheld by provider - Provider: System Discharge) [...] RN)2035 (Given - Provider: Girish Nunez, SAMI) 08 (Given - Provider: Terra Heart, SAMI)2024 (Given - Provider: Carolyn Plasencia RN) 0958 (Given - Provider: Cheyanne Mcdonough, [...] 0.25 mg, Oral, DAILY, First dose on 09/09/23 at 0900, Until Discontinued, Caution check route [...] Until Discontinued 0842 (Given - Provider: Erica Ross RN) 0841 (Given - Provider: Terra Heart, SAMI)1053 (JAN Hold - Provider: Automatic Transfer - Reason: Transfer to a Procedural area)1414 (MAR Unhold - Provider: Automatic Transfer) 0920 (Given - Provider: Terra Heart, SAMI) amLODIPine (NORVASC) tablet 5 mg 5 mg, Oral, DAILY, First dose on Thu01/16/24 at 0900, Until Discontinued, On hold since Thu01/18/2024 at 1009 until manually unheld 0900 (Automatically Held - Provider: Arelis Mera MD) 0900 (Automatically Held - Provider: Arelis Mera MD) 0900 (Automatically Held - Provider: Areils Mera MD)1752 (Unheld by provider - Provider: System Discharge) aspirin chewable tablet 81 mg 81 mg, Oral, DAILY, First dose on 01/16/24 at 0900, Until Discontinued, On hold since Thu01/21/2024 at 0802 until manually unheld 0802 (Held [...] Until Discontinued 0842 (Given - Provider: Erica Ross RN)1619 (Given - Provider: Dillon Lyman RN) 0841 (Given - Provider: Terra Heart RN)1053 (JAN Hold - Provider: Automatic Transfer - Reason: Transfer to a Procedural area)141 (JAN Unhold - Provider: Automatic Transfer)180 (Given - Provider: Terra Heart RN) 0920 (Given - Provider: Terra Heart RN)1700 (Canceled Entry - Provider: System Discharge - Comment: Automatically canceled at discontinue of medication order) Gabapentin (NEURONTIN) capsule 400 mg 400 mg, Oral, DAILY AT BEDTIME, First dose on 01/16/24 at 0200, Until Discontinued 2033 (Given - Provider: Tati Ahmadi RN) 1053 (JAN Hold - Provider: Automatic Transfer - Reason: Transfer to a Procedural area)141 (JAN Unhold - Provider: Automatic Transfer)2008 (Given - Provider: Tati Ahmadi RN) Itraconazole (SPORANOX) oral solution 100 mg 100 mg, Oral, EVERY 12 HOURS, First dose on 01/16/24 at 0900, Until Discontinued, Administer on an empty stomach. Hold tube feeds for 1 hour before and 2 hours after administration. 0843 (Given - Provider: Erica Ross RN)203 (Given - Provider: Tati Ahmadi RN) 0842 (Given - Provider: Terra Heart RN)1053 (JAN Hold - Provider: Automatic Transfer - Reason: Transfer to a Procedural area)141 (JAN Unhold - Provider: Automatic Transfer)2008 (Given - Provider: Tati Ahmadi RN) 0923 (Given - Provider: Terra Heart RN) Magnesium sulfate 4 g in sterile water 50 ml premix IVPB (COMPLETED) 4 g, Intravenous, Administer over 4 Hours, ONCE, 1 dose, On Marta 01/21/24 at 0815 0848 ($$New Bag$$ - Provider: Erica Ross RN)1218 (Stopped - Provider: Dillon Lyman RN) Mycophenolate sodium (MYFORTIC) tablet DR 360 mg 360 mg, Oral, 2 TIMES DAILY (Solid Organ Transplant), First dose on 01/16/24 at 0800, Until Discontinued, Give on an empty stomach. Swallow tablet whole; do not crush, split or chew. Contact pharmacy if alternate route or dose is needed. 0842 (Given - Provider: Erica Ross RN)2033 (Given - Provider: Tati Ahmadi RN) 0841 (Given - Provider: Terra Heart RN)1053 (MAR Hold - Provider: Automatic Transfer - Reason: Transfer to a Procedural area)141 (MAR Unhold - Provider: Automatic Transfer)2008 (Given - Provider: Tati Ahmadi RN) 09 (Given - Provider: Terra Heart RN) Sulfamethoxazole-trime thoprim (BACTRIM DS) 800-160 MG per tablet 1 tablet 1 tablet, Oral, THREE TIMES WEEKLY (Once per day on Thursday), First dose on Thu01/18/24 at 0900, Until Discontinued 0846 (Given - Provider: Terra Heart RN)105 (MAR Hold - Provider: Automatic Transfer - Reason: Transfer to a Procedural area)141 (MAR Unhold - Provider: Automatic Transfer) tacrolimus (PROGRAF) susp 0.2 mg 0.2 mg, Oral, CUSTOM FREQUENCY (Once per day on Thursday), First dose on 01/16/24 at 0900, Until Discontinued, Caution check route of administration. For sublingual administration, place liquid under tongue and allow absorption. 0842 (Given - Provider: Erica Ross RN) 1053 (MAR Hold - Provider: Automatic Transfer - Reason: Transfer to a Procedural area)1414 (MAR Unhold - Provider: Automatic Transfer) 09 (Given - Provider: Terra Heart RN) Tamsulosin HCl (FLOMAX) capsule 0.4 mg 0.4 mg, Oral, DAILY, First dose on 01/16/24 at 0900, Until Discontinued, Slow release product. Do not chew or crush 0842 (Given - Provider: Erica Ross RN) 0841 (Given - Provider: Terra Heart RN)1053 ([facility] Hold - Provider: Automatic Transfer - Reason: Transfer to a Procedural area)1414 ([facility] Unhold - Provider: Automatic Transfer) 0920 (Given - Provider: Terra Heart RN) Torsemide (DEMADEX) tablet 20 mg (CANCELED) 20 mg, Oral, 2 TIMES DAILY BEFORE MEALS, First dose on Thu01/20/24 at 1600, Until Discontinued, Max: 200 mg/day 0842 (Given - Provider: Erica Ross RN) Torsemide (DEMADEX) tablet 20 mg 20 mg, Oral, DAILY, First dose (after last modification) on Thu01/22/24 at 0900, Until Discontinued, Max: 200 mg/day 0841 (Given - Provider: Terra Heart RN)1053 ([facility] Hold - Provider: Automatic Transfer - Reason: Transfer to a Procedural area)1414 ([facility] Unhold - Provider: Automatic Transfer) [...] all sources in 24 hours. 1053 ([facility] Hold - Provider: Automatic Transfer - Reason: Transfer to a Procedural area)1414 ([facility] Unhold - Provider: Automatic Transfer)1806 [...] mg and Simethicone 20 mg) 1053 ([facility] Hold - Provider: Automatic Transfer - Reason: Transfer to a Procedural area)1414 ([facility] Unhold - Provider: Automatic Transfer) guaiFENesin (ROBITUSSIN) oral solution 400 mg 400 mg, Oral, EVERY 6 HOURS NEEDED, Starting on 01/16/24 at 0202, Until 01/23/24 at 1752, Cough, Congestion 1053 ([facility] Hold - Provider: Automatic Transfer - Reason: Transfer to a Procedural area)1414 ([facility] Unhold - Provider: Automatic Transfer) HYDROmorphone (DILAUDID) injection 0.2 mg (CANCELED) 0.2 mg, Intravenous, EVERY 3 HOURS NEEDED, Starting on Thu01/22/24 at 1323, Until 01/23/24 at 0821, Severe Pain 2103 (Given - Provider: Tati Ahmadi RN) Lidocaine (XYLOCAINE) 10 mg/mL injection (CANCELED) NEEDED, Starting on Thu01/22/24 at 1248, Until Thu01/22/24 at 1306, Intra-op/Intra-Proc 1248 (Given - Provider: Jyoti Bryant MD, PhD) Melatonin tablet 6 mg 6 mg, Oral, DAILY AT BEDTIME NEEDED, Starting on 01/19/24 at 0016, Until 01/23/24 at 1752, Insomnia 1053 ([facility] Hold - Provider: Automatic Transfer - Reason: Transfer to a Procedural area)1414 ([facility] Unhold - Provider: Automatic Transfer)2355 (Given - Provider: Tati Ahmadi, SAMI) Ondansetron (ZOFRAN) tablet 4 mg(Linked Group 1) 4 mg, Oral, EVERY 6 HOURS NEEDED, Starting on 01/16/24 at 0202, Until 01/23/24 at 1752, Nausea / Vomiting, 1st line for Nausea/Vomiting 1053 ([facility] Hold - Provider: Automatic Transfer - Reason: Transfer to a Procedural area)1414 ([facility] Unhold - Provider: Automatic Transfer)1809 (See Alternative - Provider: [facility], SAMI) 0430 (See Alternative - Provider: Tati Ahmadi, SAMI)1415 (Given - Provider: [facility], SAMI) Ondansetron 4mg/2ml (ZOFRAN) injection 4 mg(Linked Group 1) 4 mg, Intravenous, EVERY 6 HOURS NEEDED, Starting on 01/16/24 at 0202, Until 01/23/24 at 1752, Nausea / Vomiting, 1st line for Nausea/Vomiting 1053 ([facility] Hold - Provider: Automatic Transfer - Reason: Transfer to a Procedural area)1414 ([facility] Unhold - Provider: Automatic Transfer)1809 [...] at 1752, Constipation 1st Line 1053 ([facility] Hold - Provider: Automatic Transfer - Reason: Transfer to a Procedural area)1414 ([facility] Unhold - Provider: Automatic Transfer) Prochlorperazine (COMPAZINE) injection 10 mg 10 mg, Intravenous, EVERY 6 HOURS NEEDED, Starting on 01/17/24 at 1538, Until 01/23/24 at 1752, Nausea / Vomiting, Refractory Nausea Vomiting, For IV route: dilute dose with 10mL normal saline and give by slow IV push at a rate of 5mg/min. Maximum of 40mg/day. 1053 ([facility] Hold - Provider: Automatic Transfer - Reason: Transfer to a Procedural area)1414 ([facility] Unhold - Provider: Automatic Transfer)2349 [...] the intermittent or piggy back medication. 1053 ([facility] Hold - Provider: Automatic Transfer - Reason: Transfer to a Procedural area)1414 ([facility] Unhold - Provider: Automatic Transfer) No Frequency [...] BE BASED ON THE PRIMARY CLINICAL RECORDS. [facility] [address] [facility]. provides no warranty or guarantee of the accuracy or completeness of information in this document.
[2024-02-22 07:31] LABS: Basophils Percent Auto 0.5 % (0.2-2.0); Eosinophils Absolute Auto 0.1 10^3/uL (0.0-0.7); Eosinophils Percent Auto 2.1 % (0.9-7.0); Hematocrit 43.8 % (42.0-54.0); Immature Granulocytes Abs Auto 0.01 10^3/uL (0.00-0.03); Immature Granulocytes Pct Auto 0.2 % (0.0-0.5); Lymphocytes Absolute Auto 1.6 10^3/uL (1.2-3.8); Lymphocytes Percent Auto 37.7 % (20.5-60.0); Mean Corpuscular Hemoglobin 28.1 pg (25.9-34.0); Mean Corpuscular Volume 87.8 fL (80.0-94.0); Mean Platelet Volume 10.5 fL (9.5-13.5); Monocytes Absolute Auto 0.5 10^3/uL (0.3-0.8); Monocytes Percent Auto 12.4 % (1.7-12.0); Neutrophils Percent Auto 47.1 % (43.0-75.0); Platelet Count 219 10^3/uL (150-450); Red Blood Count 4.99 10^6/uL (4.70-6.10); Red Cell Distribution Width 13.7 % (11.0-15.0); White Blood Count 4.2 10^3/uL (4.0-11.0)
[2024-02-22 08:42] LABS: Protein Creatinine Ratio Urine 0.18; Total Protein Urine Random 18.8 mg/dL (<=11.9)
[2024-02-22 09:03] LABS: Alanine Aminotransferase 47 U/L (16-63); Albumin Level 3.9 g/dL (3.4-5.0); Alkaline Phosphatase 141 U/L (46-116); Anion Gap 13.6; Aspartate Amino Transferase 34 U/L (15-37); BUN Creatinine Ratio 10.7; Bilirubin Direct 0.3 mg/dL (0.0-0.2); Bilirubin Total 1.7 mg/dL (0.2-1.0); Calcium 9.8 mg/dL (8.5-10.1); Chloride 105 mmol/L (98-107); Estimated GFR (African America >60 (>=60); Estimated GFR (Non-African Ame >60 (>=60); Gamma Glutamyl Transpeptidase 25 U/L (15-85); Glucose 104 mg/dL (74-106); Phosphorus 3.4 mg/dL (2.6-4.7); Potassium 3.6 mmol/L (3.5-5.1); Sodium 143 mmol/L (136-145)
[2024-02-24 18:10] LABS: Tacrolimus (FK506), Blood 5.7 ng/mL (2.0-20.0)
== END 2024-02-22 06:40 | disposition home or self-care (01) ==
LOC: LAB 06:42
PROVIDERS: PCP Nurse Practitioner
DX: R79.9 Abnormal finding of blood chemistry, unspecified (principal); Z94.0 Kidney transplant status; Z94.4 Liver transplant status; Z48.298 Encounter for aftercare following other organ transplant
CPT/HCPCS: 36415; 80048; 80197; 82042; 82247; 82248; 82570; 82977; 83735; 84075; 84100; 84156; 84450; 84460; 85025

== ENCOUNTER 2024-02-29 06:35 | Outpatient (OUT) | payer MEDICARE, MEDICAID, SELFPAY ==
--- OUTSIDE RECORDS SUMMARY | 2024-02-29 06:42 | XMS_ITS | CCD ---
Author Organization [facility] Care Team Providers Care 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 Name Role Phone Kiana Zuly Unavailable Unavailable Primary Care Provider Unavailabl e KASMANI, ROB Referring Unavailable KASMANI, ROB Referring Unavailable KASMANI, ROB Referring Unavailable RIST, RENA Referring Unavailable JOHARTANA S Referring Unavailable RIST, RENA Referring Unavailable RIST, RENA Referring Unavailable RIST, RENA Referring Unavailable RIST, RENA Referring Unavailable PEPE CASE Attending Unavailable PEPE CASE Admitting Unavailable AICHHOLZ, ZULY Referring Unavailable AICHHOLZ, ZULY Primary Care Unavailable Aichholz [facility], [facility] Primary Care Provider Miguel [facility] [phone] Shirin [facility],PharmD, Angel Unavailable Unavailab makayla Leigh [facility],PharmD, Te Unavailable Unavai lable Aicholz [facility] Primary Care Provider [phone] MIGUEL CARDONA Attending Unavailable MISC, DR BURCH Admitting Unavailable MISC, DR BURCH Consulting Unavailable AICHHOLZ, PHYSICIAN GENERAL PRACTICE ZULY Primary Care Unavailable MISC, DR BURCH Attending Unavailable MISC, DR BURCH Admitting Unavailable MISC, DR BURCH Consulting Unavailable AICHHOLZ, PHYSICIAN GENERAL PRACTICE ZULY Primary Care Unavailable MISC, DR BURCH Attending Unavailable ARCELIA PIZARRO Consulting Unavailable KE BURNHAM Attending Unavailable KE BURNHAM Admitting Unavailable DR MÓNICA JIMENEZ Consulting Unavailable AICHHOLZ, PHYSICIAN GENERAL PRACTICE ZULY Primary Care Unavailable KE BURNHAM Consulting Unavailable MISC, DR BURCH Consulting Unavailable MISC, DR BURCH Attending Unavailable AICHHOLZ, PHYSICIAN GENERAL PRACTICE ZULY Primary Care Unavailable MISC, DR DOCTOR Admitting Unavailable MISC, DR DOCTOR Consulting Unavailable MISC, DR DOCTOR Attending Unavailable AICHHOLZ, PHYSICIAN GENERAL PRACTICE ZULY Primary Care Unavailable MISC, DOCTOR Admitting Unavailable MISC, DOCTOR Consulting Unavailable AICHHOLZ, PHYSICIAN GENERAL PRACTICE ZULY Primary Care Unavailable MISC, DOCTOR Admitting Unavailable MISC, DR DOCTOR Attending Unavailable MELINDA, DR GEORGE Munoz Consulting Unavailable MELINDA, DR GEORGE Munoz Attending Unavailable AICHHOLZ, PHYSICIAN GENERAL PRACTICE ZULY Primary Care Unavailable MELINDA, DR GEORGE Munoz Admitting Unavailable NAUN ., KE Consulting Unavailable MIRANDA, LYNDSAY Consulting Unavailable MELINDA, DR GEORGE Munoz Consulting Unavailable NAUN ., KE Attending Unavailable NAUN ., KE Admitting Unavailable AICHHOLZ, PHYSICIAN GENERAL PRACTICE ZULY Primary Care Unavailable NAUN ., KE Consulting Unavailable GIAN HERRING Consulting Unavailable AICHHOLZ, PHYSICIAN GENERAL PRACTICE ZULY Consulting Unavailable AICHHOLZ, PHYSICIAN GENERAL PRACTICE ZULY Attending Unavailable AICHHOLZ, PHYSICIAN GENERAL PRACTICE ZULY Admitting Unavailable AICHHOLZ, PHYSICIAN GENERAL PRACTICE ZULY Primary Care Unavailable MISC, DR BURCH Consulting Unavailable MISC, DR BURCH Admitting Unavailable MISC, DOCTOR Attending Unavailable AICHHOLZ, PHYSICIAN GENERAL PRACTICE ZULY Primary Care Unavailable MISC, DR DOCTOR Consulting Unavailable MISC, DR DOCTOR Attending Unavailable MISC, DOCTOR Admitting Unavailable AICHHOLZ, PHYSICIAN GENERAL PRACTICE ZULY Primary Care Unavailable MISC, DR BURCH Admitting Unavailable MISC, DR BURCH Consulting Unavailable MISC, DOCTOR Attending Unavailable AICHHOLZ, PHYSICIAN GENERAL PRACTICE ZULY Primary Care Unavailable MISC, DOCTOR Admitting Unavailable MISC, DR DOCTOR Consulting Unavailable AICHHOLZ, PHYSICIAN GENERAL PRACTICE ZULY Primary Care Unavailable MISC, DR DOCTOR Attending Unavailable MISC, DOCTOR Admitting Unavailable MISC, DOCTOR Consulting Unavailable AICHHOLZ, PHYSICIAN GENERAL PRACTICE ZULY Primary Care Unavailable MISC, DR DOCTOR Attending Unavailable AICHHOLZ, PHYSICIAN GENERAL PRACTICE ZULY Consulting Unavailable AICHHOLZ, PHYSICIAN GENERAL PRACTICE ZULY Attending Unavailable AICHHOLZ, PHYSICIAN GENERAL PRACTICE ZULY Admitting Unavailable AICHHOLZ, PHYSICIAN GENERAL PRACTICE ZULY Primary Care Unavailable DR MÓNICA JIMENEZ Consulting Unavailable Aichholz [facility] Primary Care Provider [phone] Tran White DOs Tray Unavailable Aicholz [facility] Primary Care Provider [phone] [facility] DOs A Unavailable [phone] Momo Verdugo MD Primary Care Provider AICHHOLZ, ZULY Attending Unavailable AICHHOLZ, ZULY Attending Unavailable AICHHOLZ, ZULY Attending Unavailable PALMA PALACIOS Attending Unavailable AICHHOLZ, ZULY Referring Unavailable FIDELINA SANCHEZ Attending Unavailable AICHHOLZ, ZULY Referring Unavailable CANDIE ALMAGUER Attending Unavailable AICHHOLZ, ZULY Primary Care Unavailable KELVIN PACHECO Referring Unavailable AICHHOLZ, ZULY Primary Care Unavailable SELF, SELF Referring Unavailable REBECA GUTIERREZ Attending Unavailable AICHHOLZ, ZULY Primary Care Unavailable AICHHOLZ, ZULY Primary Care Unavailable AICHHOLZ, ZULY Primary Care Unavailable AICHHOLZ, ZULY Primary Care Unavailable AICHHOLZ, ZULY Primary Care Unavailable STEVE LATHAM S Attending Unavailable VELIA LATHAMAY S Referring Unavailable HAKEEM ALAMO Attending Unavailable EVAN WHITE Referring Unavailabl e AICHHOLZ, ZULY Primary Care Unavailable KELVIN PACHECO Referring Unavailable CANDIE ALMAGUER Attending Unavailable AICHHOLZ, ZULY Primary Care Unavailable NIKI, KEVIN Attending Unavailable CONSULT, INFECTIOUS DISEASE Consulting Unav ailable YEISONVELIAAY S Admitting Unavailable YEISON, STEVE S Referring Unavailable AICHHOLZ, ZULY Primary Care Unavailable NIKI, KEVIN Admitting Unavailable AICHHOLZ, ZULY Primary Care Unavailable KELVIN PACHECO K Attending Unavailable CONSULT, HEPATOBILIARY Consulting Unavailab le SYSTEM, PROVIDER NOT IN Referring Unavaila ble Allergies Allergy Classification Reported Allergen(s) Allergy Type Date of Onset Reaction(s) Facility (1 source) Shellfish; Translations: [SHELLFISH DERIVED] Propensity to adverse reactions (disorder) 8 [facility] Repository (20 sources) Shellfish-Derive d Products Propensity to adverse reactions to drug 9 [facility] (1 source) Shellfish Drug allergy (disorder) [facility] Repository Medications Current Medications Medication [...] 1 capsule by mouth once daily b dzboiqx-S-kxbjx acid (NEPHROCAPS) 1 MG capsule Take 1 [...] ankle pain. 0 06/12/2020 06/12/2023 Discontinued lactulose 18983 mg powder for oral solution (19 sources) [...] 0 Active take 1 tablet by magy once daily magnesium oxide (MAG-OX) 400 MG [...] Oral, EVERY 6 HOURS NEEDED, Starting on 09/04/23 at 0405, Until 09/04/23 at 0926, Moderate Pain, Mild Pain, Oral [...] Start: 12-30-2021 take 2 tablets by mo uth once [...] Marta 05/15/22 at 2215, Until Discontinued Start: 09-06-2020 End: [...] itraconazole Fax results to: Dr. White - [phone] Transplant Neph - [phone] Each 09/10/2023 01/19/2024 Discontinued (Medication Reconciliation (suppress cancel msg)) Start: 09-10-2023 CUSTOM MEDICAT ION Labs to be obtained: 1- Tacrolimus level, trough - collect twice weekly until 09/24/23, then weekly until 10/08/23, them once every two weeks there after. 2- Itraconazole level - obtain once between 09/14-09/18. 3- Chem 6 - Obtain weekly while on itraconazole Fax results to: Dr. White - [phone] Transplant Neph - [phone] Each 0 09/10/2023 Active Diatrizoate (1 source) Start: 05-20-2022 End: 05-20-2022 diatrizoate Meglumine (Cystografin) 30 % UR solution 80 mL diphenhydrAMINE hydrochloride 25 mg oral tablet (1 source) Histamine-1 Receptor Antagonist Start: 09-03-2023 End: 09-11-2023 take 25 mg by mouth every twenty-four hours 25 mg, Oral, EVERY 24 HOURS, First dose on Thu09/03/23 at 1600, Until Discontinued Give 30 minutes [...] over 4 Hours, ONCE, 1 dose, On Thu01/18/24 at 0730 Start: 09-09-2023 End: 09-09-2023 4 g, Intravenous, Administer over 4 Hours, ONCE, 1 dose, On Thu09/09/23 at 0800 Start: 09-07-2023 End: 09-07-2023 4 g, Intravenous, Administer over 4 Hours, ONCE, 1 dose, On Thu09/07/23 at 1145 Start: 09-05-2023 End: 09-05-2023 4 [...] NEEDED, Starting on Thu01/19/24 at 0016, Until Thu01/23/24 at 1752, Insomnia Start: 01-16-2024 End: 01-19-2024 [...] 06/14/2020 06/12/2023 Discontinued take 1 tablet by [facility] every eight hours as needed ondansetron 4 [...] (ZOFRAN) injection 4 mg polyethylene glycol 3350 42915 mg powder for oral solution (20 sources) Osmotic Laxative Start: 01-16-2024 End: 01-23-2024 17 g, Oral, DAILY NEEDED, Starting on 01/16/24 at 0202, Until 01/23/24 at 1752, Constipation 1st Line Start: 08-28-2023 End: 09-11-2023 17 g, Oral, DAILY NEEDED, Starting on 08/28/23 at 1738, Until 09/11/23 at 1645, Constipation 1st Line Start: 05-16-2022 [...] Start: 08-20-2022 take 1 capsule by mo [facility] every twelve hours Tacrolimus (PROGRAF) 0.5 [...] Start: 03-14-2022 take 1 capsule by mo ut every twelve hours tacrolimus (PROGRAF) 0.5 MG [...] Coronary arteriosclerosis; Translations: [Atherosclerotic heart disease of [place] coronary artery without angina pectoris] Onset: 3 [...] sources) Taking high risk medication; 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] Episodic Other and ill-defined [...] 05-10-2020 Episodic Other aftercare (2 sources) Other jail (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; 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] Onset: 07-06-2022 Episodic Other aftercare (1 source) retirement (current) use of aspirin; Translations: [[facility] CURRENT USE OF ASPIRIN] Onset: 06-20-2022 Episodic [...] transplant] Onset: 08-28-2023 Unclassified (1 source) Other jail (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; Translations: [Other jail (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] Onset: 08-28-2023 Unclassified (1 source) Hypertension secondary to other renal disorders; Translations: [Hypertension secondary to other renal disorders] Onset: 08-28-2023 Results Test Name Value Interpretation Reference Range Facility B-TYPE NATRIURETIC PEPTIDE ( BRAIN)on 02-26-2024 Natriuretic peptide B (Bld) [Mass/Vol] 72 pg/mL Normal 0-100 [place] Comment on above: Performed By: #### B ORACLE AGILE PLM CONSULTANT ####[facility] (DEFAULT)[address] [place] [address] CHEM 6 (LYTES, BUN CREA)on 0 02-26-2024 Anion gap [Moles/Vol] 13 mmol/L Normal 7-17 [place] Comment on above: Performed By: #### C HM6 ####[facility] (DEFAULT)[address] [place] [address] Chloride [Moles/Vol] 107 mmol/L Normal 98-108 [place] Comment on above: Performed By: #### C HM6 ####[facility] (DEFAULT)[address] [facility] [place] [address] CO2 [Moles/Vol] 25 mmol/L Normal 21-31 [facility] Comment on above: Performed By: #### C HM6 ####[facility] (DEFAULT)[address] [place] [address] Creatinine [Mass/Vol] 1.23 mg/dL Normal 0.70-1.30 [place] Comment on above: Performed By: #### C HM6 ####[facility] (DEFAULT)[address] [place] [address] GFR/1.73 sq M.predicted among non-blacks MDRD (S/P/Bld) [Vol rate/Area] 70 mL/min/{1.73_m2} Normal >=60 [place] Comment on above: Result Comment: Repo rted eGFR is based on the CKD-EPI 2020 equation using creatinine, age, and sex. Performed By: #### C HM6 ####[facility] (DEFAULT)[address] [place] [address] Potassium [Moles/Vol] 4.2 mmol/L Normal 3.5-5.0 [place] Comment on above: Performed By: #### C HM6 ####[facility] (DEFAULT)[address] [place] [address] Sodium [Moles/Vol] 141 mmol/L Normal 135-145 [facility] Comment on above: Performed By: #### C HM6 ####[facility] (DEFAULT)[address] [place] [address] Urea nitrogen [Mass/Vol] 17 mg/dL Normal 7-25 [place] Comment on above: Performed By: #### C HM6 ####[facility] (DEFAULT)[address] [facility] [place] [address] Urea nitrogen/Creatinine [Mass ratio] 14 mg/mg Normal [place] Comment on above: Performed By: #### C HM6 ####[facility] (DEFAULT)[address] [facility] [place] [address] CBC,PLATELETSon 01-23-2024 Hematocrit (Bld) [Volume fraction] 37.0 % Low 39.6-48.8 [place] Comment on above: Performed By: #### H EMOGC ####[facility] (DEFAULT)[address] [facility] [place] [address] Hemoglobin (Bld) [Mass/Vol] 12.0 g/dL Low 13.4-16.8 [place] Comment on above: Performed By: #### H EMOGC ####[facility] (DEFAULT)[address] [facility] [place] [address] MCV (RBC) [Entitic vol] 88.1 fL Normal 79.0-94.5 [place] Comment on above: Performed By: #### H EMOGC ####[facility] (DEFAULT)[address] [facility] [place] [address] Mean Cell Hgb 28.6 pg Normal 26.1-33.3 [place] Comment on above: Performed By: #### H EMOGC ####[facility] (DEFAULT)[address] [place] [address] Mean Cell Hgb Conc 32.4 g/dL Normal 31.9-36.5 [facility] Comment on above: Performed By: #### H EMOGC ####[facility] (DEFAULT)[address] [place] [address] Platelet mean volume (Bld) [Entitic vol] 10.4 fL Normal 8.7-12.3 [place] Comment on above: Performed By: #### H EMOGC ####[facility] (DEFAULT)[address] [facility] [place] [address] Platelets (Bld) [#/Vol] 170 10*3/uL Normal 146-337 [place] Comment on above: Performed By: #### H EMOGC ####[facility] (DEFAULT)[address] [facility] [place] [address] RBC (Bld) [#/Vol] 4.20 10*6/uL Low 4.38-5.83 [place] Comment on above: Performed By: #### H EMOGC ####[facility] (DEFAULT)[address] [place] [address] RBC Distribution 14.2 % Normal 10.9-14.[address] [facility] Comment on above: Performed By: #### H EMOGC ####[facility] (DEFAULT)[address] [facility] [place] [address] WBC (Bld) [#/Vol] 3.70 10*3/uL Low 3.73-10.10 [place] Comment on above: Performed By: #### H EMOGC ####[facility] (DEFAULT)[address] [place] [address] Erythrocyte distribution width (RBC) [Ratio] 14.2 % 10.9 - 14.3 % [facility] Hematocrit (Bld) [Volume fraction] 37.0 % Low 39.6 - 48.8 % [facility] Hemoglobin (Bld) [Mass/Vol] 12.0 g/dL Low 13.4 - 16.8 g/dL [facility] Interpretation and review of laboratory results Abnormal [facility] MCH (RBC) [Entitic mass] 28.6 pg 26.1 - 33.3 pg [facility] MCHC (RBC) [Mass/Vol] 32.4 g/dL 31.9 - 36.5 g/dL [facility] MCV (RBC) [Entitic vol] 88.1 fL 79.0 - 94.5 fL [facility] Platelet mean volume (Bld) [Entitic vol] 10.4 fL 8.7 - 12.3 fL [facility] Platelets (Bld) [#/Vol] 170 10*3/uL 146 - 337 K/uL [facility] RBC (Bld) [#/Vol] 4.20 10*6/uL Low [facility] WBC (Bld) [#/Vol] 3.70 10*3/uL Low 3.73 - 10. 10 K/uL [facility] CHEM 7 (LYTES,BUN,CREA,GLUC) on 01-23-2024 Anion gap [Moles/Vol] 14 mmol/L Normal 7-17 [place] Comment on above: Performed By: #### TJ RAMÍREZ7, HFP ####[facility] (DEFAULT)[address] [place] [address] Chloride [Moles/Vol] 105 mmol/L Normal 98-108 [place] Comment on above: Performed By: #### Rod BLOOM CHM7, HFP ####[facility] (DEFAULT)[address] [place] [address] CO2 [Moles/Vol] 25 mmol/L Normal 21-31 [facility] Comment on above: Performed By: #### NATHANIEL RAMÍREZ, HFP ####[facility] (DEFAULT)[address] [place] [address] Creatinine [Mass/Vol] 1.32 mg/dL High 0.70-1.30 [place] Comment on above: Performed By: #### NATHANIEL RAMÍREZ, HFP ####[facility] (DEFAULT)[address] [place] [address] GFR/1.73 sq M.predicted among non-blacks MDRD (S/P/Bld) [Vol rate/Area] 65 mL/min/{1.73_m2} Normal >=60 [place] Comment on above: Result Comment: Repo rted eGFR is based on the CKD-EPI 2020 equation using creatinine, age, and sex. Performed By: #### NATHANIEL RAMÍREZ, HFP ####[facility] (DEFAULT)[address] [place] [address] Glucose [Mass/Vol] 94 mg/dL Normal 70-99 [facility] Comment on above: Performed By: #### NATHANIEL RAMÍREZ, HFP ####[facility] (DEFAULT)[address] [place] [address] Osmolality [Osmolality] 296 mosm/kg Normal 278-305 [place] Comment on above: Performed By: #### NATHANIEL RAMÍREZ, HFP ####[facility] (DEFAULT)[address] [place] [address] Potassium [Moles/Vol] 3.8 mmol/L Normal 3.5-5.0 [place] Comment on above: Performed By: #### NATHANIEL RAMÍREZ, HFP ####[facility] (DEFAULT)[address] [place] [address] Sodium [Moles/Vol] 140 mmol/L Normal 135-145 [facility] Comment on above: Performed By: #### M MERLE CHM7, HFP ####[facility] (DEFAULT)[address] [place] [address] Urea nitrogen [Mass/Vol] 23 mg/dL Normal 7-25 [place] Comment on above: Performed By: #### M MERLE CHM7, HFP ####[facility] (DEFAULT)[address] [place] [address] Urea nitrogen/Creatinine [Mass ratio] 17 mg/mg Normal [place] Comment on above: Performed By: #### M MERLE CHM7, HFP ####[facility] (DEFAULT)[address] [place] [address] Anion gap [Moles/Vol] 14 mmol/L 7 - 17 mmol/L [facility] Chloride [Moles/Vol] 105 mmol/L 98 - 10 8 mmol/L [facility] CO2 [Moles/Vol] 25 mmol/L 21 - 31 mmol/L [facility] Creatinine [Mass/Vol] 1.32 mg/dL High 0.70 - 1.30 mg/dL [facility] eGFR, CKD-EPI, Male 66 - PINF [facility] Comment on above: Reported eGFR is bas ed on the CKD-EPI 2020 equation using creatinine, age, and sex. Glucose [Mass/Vol] 94 mg/dL 70 - 99 mg/dL [facility] Osmolality Calc [Osmolality] 296 [facility] Potassium [Moles/Vol] 3.8 mmol/L 3.5 - 5.0 mmol/L [facility] Sodium [Moles/Vol] 140 mmol/L 135 - 145 mmol/L [facility] Urea nitrogen [Mass/Vol] 23 mg/dL 7 - 25 mg/dL [facility] Urea nitrogen/Creatinine [Mass ratio] 17 mg/mg [facility] GLUCOSE POCon 01-23-2024 Glucose [Mass/Vol] 88 mg/dL 70 - 99 mg/dL [facility] POC Sample Type CAPBL [facility] Test performed at ad dress of the patient encounter. [facility] Glucose [Mass/Vol] 191 mg/dL High 70 - 99 mg/dL [facility] Interpretation and review of laboratory results Abnormal [facility] POC Sample Type CAPBL [facility] Test performed at ad dress of the patient encounter. [facility] HEPATIC FUNCTION PANELon Albumin [Mass/Vol] 3.9 g/dL Normal 3.5-5.0 [facility] Comment on above: Performed By: #### NATHANIEL RAMÍREZ, HFP ####[facility] (DEFAULT)[address] [place] [address] ALP [Catalytic activity/Vol] 83 U/L Normal 32-126 [place] Comment on above: Performed By: #### NATHANIEL RAMÍREZ, HFP ####[facility] (DEFAULT)[address] [place] [address] ALT [Catalytic activity/Vol] 9 U/L Low 10-52 [place] Comment on above: Performed By: #### NATHANIEL RAMÍREZ, HFP ####[facility] (DEFAULT)[address] [place] [address] AST [Catalytic activity/Vol] 17 U/L Normal 10-39 [place] Comment on above: Performed By: #### NATHANIEL RAMÍREZ, HFP ####[facility] (DEFAULT)[address] [place] [address] Bilirubin [Mass/Vol] 1.6 mg/dL High <1.5 [place] Comment on above: Performed By: #### NATHANIEL RAMÍREZ, HFP ####[facility] (DEFAULT)[address] [place] [address] Bilirubin.indirect [Mass/Vol] 0.4 mg/dL High <0.3 [place] Comment on above: Performed By: #### M TJ BLOOM7, HFP ####[facility] (DEFAULT)[address] [facility] [address] Protein [Mass/Vol] 6.6 g/dL Normal 6.4-8.3 [facility] Comment on above: Performed By: #### M TJ BLOOM7, HFP ####[facility] (DEFAULT)[address] [place] [address] Albumin [Mass/Vol] 3.9 g/dL 3.5 - 5.0 g/dL [facility] ALP [Catalytic activity/Vol] 83 U/L 32 - 126 U/L [facility] ALT [Catalytic activity/Vol] 9 U/L Low 10 - 52 U/L [facility] AST [Catalytic activity/Vol] 17 U/L 10 - 39 U/L [facility] Bilirubin [Mass/Vol] 1.6 mg/dL High NINF - 1.5 mg/dL [facility] Bilirubin.direct [Mass/Vol] 0.4 mg/dL High NINF - 0.3 mg/dL [facility] Protein [Mass/Vol] 6.6 g/dL 6.4 - 8.3 g/dL [facility] ITRACONAZOLE LEVELon 024 Hydroxyitraconazole [Mass/Vol] 7.6 mcg/mL [facility] Comment on above: REFERENCE VALUE No therapeutic range established; activity and serum concentration are similar to parent drug. ADDITIONAL INFORMATION This test was developed and its performance characteristics determined by [facility] in a manner consistent with CLIA requirements. This test has not been cleared or approved by the U.S. Food and Drug Administration. Test Performed by: [facility] [address] [place] [address] [employer]: Rosendo Bose M.D. Ph.D.; CLIA# [id number] Itraconazole [Mass/Vol] 6.0 mcg/mL [facility] Comment on above: REFERENCE VALUE >0.5 (localized infection), >1.0 (systemic infection) [facility] MAGNESIUMon 01-23-2024 Magnesium [Mass/Vol] 1.8 mg/dL Normal 1.6-2.6 [place] Comment on above: Performed By: #### M MERLE, M7, [facility] ####[facility] (DEFAULT)[address] [place] [address] Interpretation and review of laboratory results Normal [facility] Magnesium [Mass/Vol] 1.8 mg/dL 1.6 - 2 .6 mg/dL [facility] No Panel Informationon 01-23 Interpretation and review of laboratory results Abnormal [facility] TACROLIMUS LEVEL, TROUGH ([place] E DRUG LEVEL)on 01-23-2024 Interpretation and review of laboratory results Normal [facility] Tacrolimus (Bld) [Mass/Vol] 7.0 ng/mL Bone Marrow Transplant: 4.0-12.0, Therapeutic: 5.0-15.0 [facility] Method performed is a chemiluminescent microparticle immunoasssay on the [employer] Site Manager i2000. The range is based on experience at [facility] and users should be aware that target concentrations vary widely depending on concomitant therapy, time post-transplant, and desired degree of immunosuppression. [facility] Tacrolimus, Trough 7.0 ng/mL Normal Bone Susana ow Transplant: 4.0-12.0, Therapeutic: 5.0-15.0 [place] Comment on above: Order Comment: Pleas e draw at specified interval PRIOR to dose. Do not hold dose to wait for level. Specimens batched twice per day, (M-F) and once per day weekendsMethod performed is a chemiluminescent microparticle immunoasssay on the [employer] i2000.The range is based on experience at [facility] and users should be aware that target concentrations vary widely depending on concomitant therapy, time post-transplant, and desired degree of immunosuppression. Performed By: #### T ACRO ####[facility] (DEFAULT)[address] [place] [address], [place] [address] CARDIAC RHYTHM (SCANNED)on 0 01-22-2024 [facility] CBC,PLATELETSon 01-22-2024 Hematocrit (Bld) [Volume fraction] 41.5 % Normal 39.6-48.8 [place] Comment on above: Performed By: #### H EMOGC ####[facility] (DEFAULT)[address] [place] [address], [place] [address] Hemoglobin (Bld) [Mass/Vol] 13.3 g/dL Low 13.4-16.8 [place] Comment on above: Performed By: #### H EMOGC ####[facility] (DEFAULT)[address] [place] [address] MCV (RBC) [Entitic vol] 86.8 fL Normal 79.0-94.5 [place] Comment on above: Performed By: #### H EMOGC ####[facility] (DEFAULT)[address] [place] [address] Mean Cell Hgb 27.8 pg Normal 26.1-33.3 [place] Comment on above: Performed By: #### H EMOGC ####[facility] (DEFAULT)[address] [place] [address] Mean Cell Hgb Conc 32.0 g/dL Normal 31.9-36.5 [facility] Comment on above: Performed By: #### H EMOGC ####[facility] (DEFAULT)[address] [facility] [place] [address] Platelet mean volume (Bld) [Entitic vol] 10.5 fL Normal 8.7-12.3 [place] Comment on above: Performed By: #### H EMO ####[facility] (DEFAULT)[address] [facility] [place] [address] Platelets (Bld) [#/Vol] 186 10*3/uL Normal 146-337 [place] Comment on above: Performed By: #### H EMO ####[facility] (DEFAULT)[address] [place] [address] RBC (Bld) [#/Vol] 4.78 10*6/uL Normal 4.38-5.83 [place] Comment on above: Performed By: #### H EMO ####[facility] (DEFAULT)[address] [place] [address] RBC Distribution 14.1 % Normal 10.9-14.[address] [facility] Comment on above: Performed By: #### H EMO ####[facility] (DEFAULT)[address] [place] [address] WBC (Bld) [#/Vol] 3.74 10*3/uL Normal 3.73-10.10 [place] Comment on above: Performed By: #### H EMO ####[facility] (DEFAULT)[address] [place] [address] Erythrocyte distribution width (RBC) [Ratio] 14.1 % 10.9 - 14.3 % [facility] Hematocrit (Bld) [Volume fraction] 41.5 % 39.6 - 48.8 % [facility] Hemoglobin (Bld) [Mass/Vol] 13.3 g/dL Low 13.4 - 16.8 g/dL [facility] Interpretation and review of laboratory results Abnormal [facility] MCH (RBC) [Entitic mass] 27.8 pg 26.1 - 33.3 pg [facility] MCHC (RBC) [Mass/Vol] 32.0 g/dL 31.9 - 36.5 g/dL [facility] MCV (RBC) [Entitic vol] 86.8 fL 79.0 - 94.5 fL [facility] Platelet mean volume (Bld) [Entitic vol] 10.5 fL 8.7 - 12.3 fL [facility] Platelets (Bld) [#/Vol] 186 10*3/uL 146 - 337 K/uL [facility] RBC (Bld) [#/Vol] 4.78 10*6/uL [facility] WBC (Bld) [#/Vol] 3.74 10*3/uL 3.73 - 10. 10 K/uL [facility] CHEM 7 (LYTES,BUN,CREA,GLUC) on 01-22-2024 Anion gap [Moles/Vol] 13 mmol/L Normal 7-17 [place] Comment on above: Performed By: #### TJ RAMÍREZ7 ####[facility] (DEFAULT)[address] [place] [address] Chloride [Moles/Vol] 109 mmol/L High 98-108 [place] Comment on above: Performed By: #### NATHANIEL RAMÍREZ ####[facility] (DEFAULT)[address] [place] [address] CO2 [Moles/Vol] 23 mmol/L Normal 21-31 [facility] Comment on above: Performed By: #### TJ RAMÍREZ7 ####[facility] (DEFAULT)[address] [place] [address] Creatinine [Mass/Vol] 1.10 mg/dL Normal 0.70-1.30 [place] Comment on above: Performed By: #### TJ RAMÍREZ7 ####[facility] (DEFAULT)[address] [place] [address] GFR/1.73 sq M.predicted among non-blacks MDRD (S/P/Bld) [Vol rate/Area] 81 mL/min/{1.73_m2} Normal >=60 [place] Comment on above: Result Comment: Repo rted eGFR is based on the CKD-EPI 2020 equation using creatinine, age, and sex. Performed By: #### TJ RAMÍREZ7 ####[facility] (DEFAULT)[address] [place] [address] Glucose [Mass/Vol] 84 mg/dL Normal 70-99 [facility] Comment on above: Performed By: #### TJ RAMÍREZ7 ####[facility] (DEFAULT)[address] [place] [address] Osmolality [Osmolality] 295 mosm/kg Normal 278-305 [place] Comment on above: Performed By: #### TJ RAMÍREZ7 ####[facility] (DEFAULT)[address] [place] [address] Potassium [Moles/Vol] 4.0 mmol/L Normal 3.5-5.0 [place] Comment on above: Performed By: #### NATHANIEL RAMÍREZ ####[facility] (DEFAULT)[address] [place] [address] Sodium [Moles/Vol] 141 mmol/L Normal 135-145 [facility] Comment on above: Performed By: #### TJ RAMÍREZ7 ####[facility] (DEFAULT)[address] [place] [address] Urea nitrogen [Mass/Vol] 16 mg/dL Normal 7-25 [place] Comment on above: Performed By: #### TJ RAMÍREZ7 ####[facility] (DEFAULT)[address] [place] [address] Urea nitrogen/Creatinine [Mass ratio] 15 mg/mg Normal [place] Comment on above: Performed By: #### TJ RAMÍREZ7 ####[facility] (DEFAULT)[address] [place] [address] Anion gap [Moles/Vol] 13 mmol/L 7 - 17 mmol/L [facility] Chloride [Moles/Vol] 109 mmol/L High 98 - 10 8 mmol/L [facility] CO2 [Moles/Vol] 23 mmol/L 21 - 31 mmol/L [facility] Creatinine [Mass/Vol] 1.10 mg/dL 0.70 - 1.30 mg/dL [facility] eGFR, CKD-EPI, Male 81 - PINF [facility] Comment on above: Reported eGFR is bas ed on the CKD-EPI 2020 equation using creatinine, age, and sex. Glucose [Mass/Vol] 84 mg/dL 70 - 99 mg/dL [facility] Interpretation and review of laboratory results Abnormal [facility] Osmolality Calc [Osmolality] 295 [facility] Potassium [Moles/Vol] 4.0 mmol/L 3.5 - 5.0 mmol/L [facility] Sodium [Moles/Vol] 141 mmol/L 135 - 145 mmol/L [facility] Urea nitrogen [Mass/Vol] 16 mg/dL 7 - 25 mg/dL [facility] Urea nitrogen/Creatinine [Mass ratio] 15 mg/mg [facility] MAGNESIUMon 01-22-2024 Magnesium [Mass/Vol] 2.0 mg/dL Normal 1.6-2.6 [place] Comment on above: Performed By: #### M GO, CHM7 ####[facility] (DEFAULT)[address] [place] [address] Interpretation and review of laboratory results Normal [facility] Magnesium [Mass/Vol] 2.0 mg/dL 1.6 - 2 .6 mg/dL [facility] No Panel Informationon 01-22 [facility] PT,INR,PTTon 01-22-2024 aPTT Coag (Bld) [Time] 29.2 s Normal 24.0-34.3 [place] Comment on above: Performed By: #### P TPTT ####[facility] (DEFAULT)[address] [place] [address] INR Coag (PPP) [Relative time] 1.1 {INR} Normal 0.9-1.1 [place] Comment on above: Performed By: #### P TPTT ####[facility] (DEFAULT)[address] [place] [address] PT Coag (PPP) [Time] 14.3 s High 11.9-14.2 [place] Comment on above: Performed By: #### P TPTT ####[facility] (DEFAULT)[address] [place] [address] aPTT Coag (PPP) [Time] 29.2 s [facility] INR Coag (Bld) [Relative time] 1.1 {INR} 0.9 - 1.1 [facility] Interpretation and review of laboratory results Abnormal [facility] PT Coag (PPP) [Time] 14.3 s High [facility] TACROLIMUS LEVEL, TROUGH ([place] E DRUG LEVEL)Ordered By: Sheree Jensen on 01-22-2024 Interpretation and review of laboratory results Normal [facility] Tacrolimus (Bld) [Mass/Vol] 7.9 ng/mL Bone Marrow Transplant: 4.0-12.0, Therapeutic: 5.0-15.0 [facility] Method performed is a chemiluminescent microparticle immunoasssay on the [employer] i2000. The range is based on experience at [facility] and users should be aware that target concentrations vary widely depending on concomitant therapy, time post-transplant, and desired degree of immunosuppression. [facility] TACROLIMUS LEVEL, TROUGH ([place] E DRUG LEVEL)on 01-22-2024 Tacrolimus, Trough 7.9 ng/mL Normal Bone Susana ow Transplant: 4.0-12.0, Therapeutic: 5.0-15.0 [place] Comment on above: Order Comment: Pleas e draw at specified interval PRIOR to dose. Do not hold dose to wait for level. Specimens batched twice per day, (M-F) and once per day weekendsMethod performed is a chemiluminescent microparticle immunoasssay on the [employer] i2000.The range is based on experience at [facility] and users should be aware that target concentrations vary widely depending on concomitant therapy, time post-transplant, and desired degree of immunosuppression. Performed By: #### T ACRO ####[facility] (DEFAULT)[address] [place] [address] TYPE AND SCREENon 01-22-2024 ABO/RH(D) TYPE Positive [facility] ABO/RH(D) TYPE Positive Normal [place] Comment on above: Performed By: #### X M ####[facility] (DEFAULT)[address] [place] [address] [place] Unspecified body regionOr dered By: Unassigned Pacs on 01-22-2024 [facility] Work Phone: [place] Unspecified body regionon 01-22-2024 Radiology Study observation (narrative) [facility] CBC,PLATELETSon 01-21-2024 Hematocrit (Bld) [Volume fraction] 39.4 % Low 39.6-48.8 [place] Comment on above: Performed By: #### H EMO ####[facility] (DEFAULT)[address] [place] [address], [place] [address] Hemoglobin (Bld) [Mass/Vol] 12.7 g/dL Low 13.4-16.8 [place] Comment on above: Performed By: #### H EMOGC ####[facility] (DEFAULT)[address] [place] [address], [place] [address] MCV (RBC) [Entitic vol] 87.0 fL Normal 79.0-94.5 [place] Comment on above: Performed By: #### H EMOGC ####[facility] (DEFAULT)[address] [place] [address] Mean Cell Hgb 28.0 pg Normal 26.1-33.3 [place] Comment on above: Performed By: #### H EMOGC ####[facility] (DEFAULT)[address] [facility] [place] [address] Mean Cell Hgb Conc 32.2 g/dL Normal 31.9-36.5 [facility] Comment on above: Performed By: #### H EMOGC ####[facility] (DEFAULT)[address] [facility] [place] [address] Platelet mean volume (Bld) [Entitic vol] 10.2 fL Normal 8.7-12.3 [place] Comment on above: Performed By: #### H EMOGC ####[facility] (DEFAULT)[address] [facility] [place] [address] Platelets (Bld) [#/Vol] 157 10*3/uL Normal 146-337 [place] Comment on above: Performed By: #### H EMOGC ####[facility] (DEFAULT)[address] [place] [address] RBC (Bld) [#/Vol] 4.53 10*6/uL Normal 4.38-5.83 [place] Comment on above: Performed By: #### H EMOGC ####[facility] (DEFAULT)[address] [facility] [place] [address] RBC Distribution 14.0 % Normal 10.9-14.[address] [facility] Comment on above: Performed By: #### H EMOGC ####[facility] (DEFAULT)[address] [place] [address] WBC (Bld) [#/Vol] 3.42 10*3/uL Low 3.73-10.10 [place] Comment on above: Performed By: #### H EMOGC ####[facility] (DEFAULT)[address] [facility] [place] [address] Erythrocyte distribution width (RBC) [Ratio] 14.0 % 10.9 - 14.3 % [facility] Hematocrit (Bld) [Volume fraction] 39.4 % Low 39.6 - 48.8 % [facility] Hemoglobin (Bld) [Mass/Vol] 12.7 g/dL Low 13.4 - 16.8 g/dL [facility] Interpretation and review of laboratory results Abnormal [facility] MCH (RBC) [Entitic mass] 28.0 pg 26.1 - 33.3 pg [facility] MCHC (RBC) [Mass/Vol] 32.2 g/dL 31.9 - 36.5 g/dL [facility] MCV (RBC) [Entitic vol] 87.0 fL 79.0 - 94.5 fL [facility] Platelet mean volume (Bld) [Entitic vol] 10.2 fL 8.7 - 12.3 fL [facility] Platelets (Bld) [#/Vol] 157 10*3/uL 146 - 337 K/uL [facility] RBC (Bld) [#/Vol] 4.53 10*6/uL [facility] WBC (Bld) [#/Vol] 3.42 10*3/uL Low 3.73 - 10. 10 K/uL [facility] CHEM 7 (LYTES,BUN,CREA,GLUC) on 01-21-2024 Anion gap [Moles/Vol] 12 mmol/L Normal 7-17 [place] Comment on above: Performed By: #### NATHANIEL RAMÍREZ ####[facility] (DEFAULT)[address] [place] [address] Chloride [Moles/Vol] 107 mmol/L Normal 98-108 [place] Comment on above: Performed By: #### TJ RAÍMREZ7 ####[facility] (DEFAULT)[address] [place] [address] CO2 [Moles/Vol] 26 mmol/L Normal 21-31 [facility] Comment on above: Performed By: #### NATHANIEL RAMÍREZ ####[facility] (DEFAULT)[address] [place] [address] Creatinine [Mass/Vol] 1.11 mg/dL Normal 0.70-1.30 [place] Comment on above: Performed By: #### TJ RAMÍREZ7 ####[facility] (DEFAULT)[address] [place] [address] GFR/1.73 sq M.predicted among non-blacks MDRD (S/P/Bld) [Vol rate/Area] 80 mL/min/{1.73_m2} Normal >=60 [place] Comment on above: Result Comment: Repo rted eGFR is based on the CKD-EPI 2020 equation using creatinine, age, and sex. Performed By: #### TJ RAMÍREZ7 ####[facility] (DEFAULT)[address] [facility] [place] [address] Glucose [Mass/Vol] 93 mg/dL Normal 70-99 [facility] Comment on above: Performed By: #### NATHANIEL RAMÍREZ ####[facility] (DEFAULT)[address] [facility] [place] [address] Osmolality [Osmolality] 295 mosm/kg Normal 278-305 [place] Comment on above: Performed By: #### NATHANIEL RAMÍREZ ####[facility] (DEFAULT)[address] [place] [address] Potassium [Moles/Vol] 3.9 mmol/L Normal 3.5-5.0 [place] Comment on above: Performed By: #### TJ RAMÍREZ7 ####[facility] (DEFAULT)[address] [facility] [place] [address] Sodium [Moles/Vol] 141 mmol/L Normal 135-145 [facility] Comment on above: Performed By: #### TJ RAMÍREZ7 ####[facility] (DEFAULT)[address] [facility] [place] [address] Urea nitrogen [Mass/Vol] 15 mg/dL Normal 7-25 [place] Comment on above: Performed By: #### M HELEN BLOOMM7 ####[facility] (DEFAULT)[address] [place] [address] Urea nitrogen/Creatinine [Mass ratio] 14 mg/mg Normal [place] Comment on above: Performed By: #### M MERLE CHM7 ####[facility] (DEFAULT)[address] [place] [address] Anion gap [Moles/Vol] 12 mmol/L 7 - 17 mmol/L [facility] Chloride [Moles/Vol] 107 mmol/L 98 - 10 8 mmol/L [facility] CO2 [Moles/Vol] 26 mmol/L 21 - 31 mmol/L [facility] Creatinine [Mass/Vol] 1.11 mg/dL 0.70 - 1.30 mg/dL [facility] eGFR, CKD-EPI, Male 80 - PINF [facility] Comment on above: Reported eGFR is bas ed on the CKD-EPI 2020 equation using creatinine, age, and sex. Glucose [Mass/Vol] 93 mg/dL 70 - 99 mg/dL [facility] Osmolality Calc [Osmolality] 295 [facility] Potassium [Moles/Vol] 3.9 mmol/L 3.5 - 5.0 mmol/L [facility] Sodium [Moles/Vol] 141 mmol/L 135 - 145 mmol/L [facility] Urea nitrogen [Mass/Vol] 15 mg/dL 7 - 25 mg/dL [facility] Urea nitrogen/Creatinine [Mass ratio] 14 mg/mg [facility] Cardiac catheterization stud yOrdered By: Kelvin Donohue on 01-21-2024 Body surface area Derived from formula 2.08 m2 [facility] Work Phone: [facility] Work Phone: Cardiac catheterization stud yon 01-21-2024 [...] with fistula occlusion Kelvin Donohue MD, MPH Road Mechanic of Internal Medicine. Section of Advanced Heart Failure and Transplantation Division of Cardiovascular Diseases [facility] [email or web address] INVASIVE CARDIOVASCULAR PROC EDUREon 01-21-2024 INVASIVE CARDIOVASCULAR PROCEDURE Normal [place] MAGNESIUMon 01-21-2024 Magnesium [Mass/Vol] 1.5 mg/dL Low 1.6-2.6 [place] Comment on above: Performed By: #### M [facility] ####[facility] (DEFAULT)[address] [place] [address] Interpretation and review of laboratory results Abnormal [facility] Magnesium [Mass/Vol] 1.5 mg/dL Low 1.6 - 2 .6 mg/dL [facility] No Panel Informationon 01-21 [facility] TACROLIMUS LEVEL, TROUGH ([place] E DRUG LEVEL)on 01-21-2024 Interpretation and review of laboratory results Normal [facility] Tacrolimus (Bld) [Mass/Vol] 7.2 ng/mL Bone Marrow Transplant: 4.0-12.0, Therapeutic: 5.0-15.0 [facility] Method performed is a chemiluminescent microparticle immunoasssay on the [employer] Manager i2000. The range is based on experience at [facility] and users should be aware that target concentrations vary widely depending on concomitant therapy, time post-transplant, and desired degree of immunosuppression. [facility] Tacrolimus, Trough 7.2 ng/mL Normal Bone Susana ow Transplant: 4.0-12.0, Therapeutic: 5.0-15.0 [place] Comment on above: Order Comment: Pleas e draw at specified interval PRIOR to dose. Do not hold dose to wait for level. Specimens batched twice per day, (M-F) and once per day weekendsMethod performed is a chemiluminescent microparticle immunoasssay on the [employer] i2000.The range is based on experience at [facility] and users should be aware that target concentrations vary widely depending on concomitant therapy, time post-transplant, and desired degree of immunosuppression. Performed By: #### T ACRO ####[facility] (DEFAULT)[address] [place] [address] CBC,PLATELETSon 01-20-2024 Hematocrit (Bld) [Volume fraction] 38.9 % Low 39.6-48.8 [place] Comment on above: Performed By: #### H EMOGC ####[facility] (DEFAULT)[address] [place] [address] Hemoglobin (Bld) [Mass/Vol] 12.5 g/dL Low 13.4-16.8 [place] Comment on above: Performed By: #### H EMOGC ####[facility] (DEFAULT)[address] [place] [address] MCV (RBC) [Entitic vol] 87.2 fL Normal 79.0-94.5 [place] Comment on above: Performed By: #### H EMOGC ####[facility] (DEFAULT)[address] [place] [address] Mean Cell Hgb 28.0 pg Normal 26.1-33.3 [place] Comment on above: Performed By: #### H EMOGC ####[facility] (DEFAULT)[address] [place] [address] Mean Cell Hgb Conc 32.1 g/dL Normal 31.9-36.5 [facility] Comment on above: Performed By: #### H EMO ####[facility] (DEFAULT)[address] [place] [address] Platelet mean volume (Bld) [Entitic vol] 10.2 fL Normal 8.7-12.3 [place] Comment on above: Performed By: #### H EMO ####[facility] (DEFAULT)[address] [facility] [place] [address] Platelets (Bld) [#/Vol] 166 10*3/uL Normal 146-337 [place] Comment on above: Performed By: #### H EMO ####[facility] (DEFAULT)[address] [facility] [place] [address] RBC (Bld) [#/Vol] 4.46 10*6/uL Normal 4.38-5.83 [place] Comment on above: Performed By: #### H EMO ####[facility] (DEFAULT)[address] [facility] [place] [address] RBC Distribution 13.8 % Normal 10.9-14.[address] [facility] Comment on above: Performed By: #### H EMO ####[facility] (DEFAULT)[address] [place] [address] WBC (Bld) [#/Vol] 3.79 10*3/uL Normal 3.73-10.10 [place] Comment on above: Performed By: #### H EMOGC ####[facility] (DEFAULT)[address] [place] [address] Erythrocyte distribution width (RBC) [Ratio] 13.8 % 10.9 - 14.3 % [facility] Hematocrit (Bld) [Volume fraction] 38.9 % Low 39.6 - 48.8 % [facility] Hemoglobin (Bld) [Mass/Vol] 12.5 g/dL Low 13.4 - 16.8 g/dL [facility] Interpretation and review of laboratory results Abnormal [facility] MCH (RBC) [Entitic mass] 28.0 pg 26.1 - 33.3 pg [facility] MCHC (RBC) [Mass/Vol] 32.1 g/dL 31.9 - 36.5 g/dL [facility] MCV (RBC) [Entitic vol] 87.2 fL 79.0 - 94.5 fL [facility] Platelet mean volume (Bld) [Entitic vol] 10.2 fL 8.7 - 12.3 fL [facility] Platelets (Bld) [#/Vol] 166 10*3/uL 146 - 337 K/uL [facility] RBC (Bld) [#/Vol] 4.46 10*6/uL [facility] WBC (Bld) [#/Vol] 3.79 10*3/uL 3.73 - 10. 10 K/uL [facility] CHEM 7 (LYTES,BUN,CREA,GLUC) on 01-20-2024 Anion gap [Moles/Vol] 12 mmol/L Normal 7-17 [place] Comment on above: Performed By: #### TAVO RAMÍREZ, CHM7 ####[facility] (DEFAULT)[address] [place] [address] Chloride [Moles/Vol] 105 mmol/L Normal 98-108 [place] Comment on above: Performed By: #### TAVO RAMÍREZ, CHM7 ####[facility] [facility] (DEFAULT)[address] [place] [address] CO2 [Moles/Vol] 28 mmol/L Normal 21-31 [facility] Comment on above: Performed By: #### TAVO RAMÍREZ, CHM7 ####[facility] (DEFAULT)[address] [place] [address] Creatinine [Mass/Vol] 1.12 mg/dL Normal 0.70-1.30 [place] Comment on above: Performed By: #### TAVO RAMÍREZ, CHM7 ####[facility] (DEFAULT)[address] [facility] [place] [address] GFR/1.73 sq M.predicted among non-blacks MDRD (S/P/Bld) [Vol rate/Area] 79 mL/min/{1.73_m2} Normal >=60 [place] Comment on above: Result Comment: Repo rted eGFR is based on the CKD-EPI 2020 equation using creatinine, age, and sex. Performed By: #### TAVO RAMÍREZ, CHM7 ####[facility] (DEFAULT)[address] [facility] [place] [address] Glucose [Mass/Vol] 88 mg/dL Normal 70-99 [facility] Comment on above: Performed By: #### TAVO RAMÍREZ, CHM7 ####[facility] (DEFAULT)[address] [facility] [place] [address] Osmolality [Osmolality] 294 mosm/kg Normal 278-305 [place] Comment on above: Performed By: #### TAVO RAMÍREZ, CHM7 ####[facility] (DEFAULT)[address] [place] [address] Potassium [Moles/Vol] 3.8 mmol/L Normal 3.5-5.0 [place] Comment on above: Performed By: #### TAVO RAMÍREZ, CHM7 ####[facility] (DEFAULT)[address] [place] [address] Sodium [Moles/Vol] 141 mmol/L Normal 135-145 [facility] Comment on above: Performed By: #### TAVO RAMÍREZ, CHM7 ####[facility] (DEFAULT)[address] [facility] [place] [address] Urea nitrogen [Mass/Vol] 15 mg/dL Normal 7-25 [place] Comment on above: Performed By: #### TAVO RAMÍREZ, CHM7 ####[facility] (DEFAULT)[address] [place] [address] Urea nitrogen/Creatinine [Mass ratio] 13 mg/mg Normal [place] Comment on above: Performed By: #### M MERLE, [facility], CHM7 ####[facility] (DEFAULT)[address] [place] [address] Anion gap [Moles/Vol] 12 mmol/L 7 - 17 mmol/L [facility] Chloride [Moles/Vol] 105 mmol/L 98 - 10 8 mmol/L [facility] CO2 [Moles/Vol] 28 mmol/L 21 - 31 mmol/L [facility] Creatinine [Mass/Vol] 1.12 mg/dL 0.70 - 1.30 mg/dL [facility] eGFR, CKD-EPI, Male 80 - PINF [facility] Comment on above: Reported eGFR is bas ed on the CKD-EPI 2020 equation using creatinine, age, and sex. Glucose [Mass/Vol] 88 mg/dL 70 - 99 mg/dL [facility] Osmolality Calc [Osmolality] 294 [facility] Potassium [Moles/Vol] 3.8 mmol/L 3.5 - 5.0 mmol/L [facility] Sodium [Moles/Vol] 141 mmol/L 135 - 145 mmol/L [facility] Urea nitrogen [Mass/Vol] 15 mg/dL 7 - 25 mg/dL [facility] Urea nitrogen/Creatinine [Mass ratio] 13 mg/mg [facility] Cardiac catheterization stud yon 01-20-2024 [facility] Radiology Study observation (narrative) [facility] Radiology Study observation (narrative) [facility] EBV BY PCR, QUANTITATIVE,BLO ODOrdered By: Charlotte Jensen on 01-20-2024 EBV DNA ESTELITA+probe (Unsp spec) [#/Vol] NINF [facility] Interpretation and review of laboratory results Normal [facility] This test was perfor med using a real time PCR assay. The dynamic range for this assay is 1000-5,000,000 IU/mL. A result <1000 IU/mL does not rule out the presence of EBV DNA in quantities below the sensitivity of this assay. This test was developed and its performance characteristics determined by [facility] [place]. It has not been cleared or approved by the FDA. The laboratory is regulated under CLIA as qualified to perform high-complexity testing. This test is used for clinical purposes. It should not be regarded as investigational or for research. [facility] HEPATIC FUNCTION PANELon Albumin [Mass/Vol] 3.7 g/dL Normal 3.5-5.0 [facility] Comment on above: Performed By: #### TAVO RAMÍREZ, CHM7 ####[facility] (DEFAULT)[address] [place] [address] ALP [Catalytic activity/Vol] 73 U/L Normal 32-126 [place] Comment on above: Performed By: #### TAVO RAMÍREZ, CHM7 ####[facility] (DEFAULT)[address] [place] [address] ALT [Catalytic activity/Vol] 12 U/L Normal 10-52 [place] Comment on above: Performed By: #### TAVO RAMÍREZ, CHM7 ####[facility] (DEFAULT)[address] [place] [address] AST [Catalytic activity/Vol] 19 U/L Normal 10-39 [place] Comment on above: Performed By: #### TAVO RAMÍREZ, CHM7 ####[facility] (DEFAULT)[address] [place] [address] Bilirubin [Mass/Vol] 2.1 mg/dL High <1.5 [place] Comment on above: Performed By: #### TAVO RAMÍREZ, CHM7 ####[facility] (DEFAULT)[address] [place] [address] Bilirubin.indirect [Mass/Vol] 0.5 mg/dL High <0.3 [place] Comment on above: Performed By: #### M TAVO BLOOM, CHM7 ####[facility] (DEFAULT)[address] [place] [address] Protein [Mass/Vol] 6.1 g/dL Low 6.4-8.3 [facility] Comment on above: Performed By: #### M TAVO BLOOM, CHM7 ####[facility] (DEFAULT)[address] [place] [address] Albumin [Mass/Vol] 3.7 g/dL 3.5 - 5.0 g/dL [facility] ALP [Catalytic activity/Vol] 73 U/L 32 - 126 U/L [facility] ALT [Catalytic activity/Vol] 12 U/L 10 - 52 U/L [facility] AST [Catalytic activity/Vol] 19 U/L 10 - 39 U/L [facility] Bilirubin [Mass/Vol] 2.1 mg/dL High NINF - 1.5 mg/dL [facility] Bilirubin.direct [Mass/Vol] 0.5 mg/dL High NINF - 0.3 mg/dL [facility] Interpretation and review of laboratory results Abnormal [facility] Protein [Mass/Vol] 6.1 g/dL Low 6.4 - 8.3 g/dL [facility] ITRACONAZOLE LEVELon 024 Hydroxyitraconazole 7.6 mcg/mL Normal [place] Comment on above: Order Comment: Dilan gregory draw level at specified interval PRIOR to dose. Result Comment: ---- REFERENCE VALUE No therapeutic range established; activity and serumconcentration are similar to parent drug. ADDITIONAL INFORMATION This test was developed and its performance characteristicsdetermined by [facility] in a manner consistent with CLIArequirements. This test has not been cleared or approved bythe U.S. Food and Drug Administration.Test Performed by:[facility] [place] [id number] Director: Rosendo Bose M.D. Ph.D.; CLIA# [id number] Performed By: #### Y ITCON ####[facility] (DEFAULT)[address] [place] [address] Itraconazole 6.0 mcg/mL Normal [place] Comment on above: Order Comment: Pleas e draw level at specified interval PRIOR to dose. Result Comment: ---- REFERENCE VALUE-------------------------->0.5 (localized infection), >1.0 (systemic infection) Performed By: #### Y ITCON ####[facility] (DEFAULT)[address] [place] [address] MAGNESIUMon 01-20-2024 Magnesium [Mass/Vol] 1.6 mg/dL Normal 1.6-2.6 [place] Comment on above: Performed By: #### M MERLE, [facility], CHM7 ####[facility] (DEFAULT)[address] [place] [address] Interpretation and review of laboratory results Normal [facility] Magnesium [Mass/Vol] 1.6 mg/dL 1.6 - 2 .6 mg/dL [facility] No Panel Informationon 01-20 [facility] POCT CO-OXIMETRYon Hemoglobin (Bld) [Mass/Vol] 12.8 g/dL Low 13.4 - 16.8 g/dL [facility] Interpretation and review of laboratory results Abnormal [facility] Oxyhemoglobin 69 % Low 94 - 98 % [facility] Ordering physician notified. Test performed at address of the patient encounter. [facility] Hemoglobin (Bld) [Mass/Vol] 13.3 g/dL Low 13.4 - 16.8 g/dL [facility] Interpretation and review of laboratory results Abnormal [facility] Oxyhemoglobin 69 % Low 94 - 98 % [facility] Ordering physician notified. Test performed at address of the patient encounter. [facility] PT,INR,PTTon 01-20-2024 aPTT Coag (Bld) [Time] 30.6 s Normal 24.0-34.3 [place] Comment on above: Performed By: #### P TPTT ####[facility] (DEFAULT)[address] [place] [address] INR Coag (PPP) [Relative time] 1.2 {INR} High 0.9-1.1 [place] Comment on above: Performed By: #### P TPTT ####[facility] (DEFAULT)[address] [place] [address] PT Coag (PPP) [Time] 15.5 s High 11.9-14.2 [place] Comment on above: Performed By: #### P TPTT ####[facility] (DEFAULT)[address] [place] [address] aPTT Coag (PPP) [Time] 30.6 s [facility] INR Coag (Bld) [Relative time] 1.2 {INR} High 0.9 - 1.1 [facility] Interpretation and review of laboratory results Abnormal [facility] PT Coag (PPP) [Time] 15.5 s High [facility] TACROLIMUS LEVEL, TROUGH ([place] E DRUG LEVEL)Ordered By: Yanira Marcum on 01-20-2024 Interpretation and review of laboratory results Normal [facility] Tacrolimus (Bld) [Mass/Vol] 7.7 ng/mL Bone Marrow Transplant: 4.0-12.0, Therapeutic: 5.0-15.0 [facility] Method performed is a chemiluminescent microparticle immunoasssay on the [employer] i2000. The range is based on experience at [facility] and users should be aware that target concentrations vary widely depending on concomitant therapy, time post-transplant, and desired degree of immunosuppression. [facility] TACROLIMUS LEVEL, TROUGH ([place] E DRUG LEVEL)on 01-20-2024 Tacrolimus, Trough 7.7 ng/mL Normal Bone Susana ow Transplant: 4.0-12.0, Therapeutic: 5.0-15.0 [place] Comment on above: Order Comment: Pleas e draw at specified interval PRIOR to dose. Do not hold dose to wait for level. Specimens batched twice per day, (M-) and once per day weekendsMethod performed is a chemiluminescent microparticle immunoasssay on the [employer] i2000.The range is based on experience at [facility] and users should be aware that target concentrations vary widely depending on concomitant therapy, time post-transplant, and desired degree of immunosuppression. Performed By: #### T ACRO ####[facility] (DEFAULT)[address] [place] [address] CBC,PLATELETSon 01-19-2024 Hematocrit (Bld) [Volume fraction] 37.5 % Low 39.6-48.8 [place] Comment on above: Performed By: #### H [facility] ####[facility] (DEFAULT)[address] [place] [address] Hemoglobin (Bld) [Mass/Vol] 12.1 g/dL Low 13.4-16.8 [place] Comment on above: Performed By: #### H [facility] ####[facility] (DEFAULT)[address] [place] [address] MCV (RBC) [Entitic vol] 87.8 fL Normal 79.0-94.5 [place] Comment on above: Performed By: #### H EMOGC ####[facility] (DEFAULT)[address] [place] [address] Mean Cell Hgb 28.3 pg Normal 26.1-33.3 [place] Comment on above: Performed By: #### H EMOGC ####[facility] (DEFAULT)[address] [facility] [place] [address] Mean Cell Hgb Conc 32.3 g/dL Normal 31.9-36.5 [facility] Comment on above: Performed By: #### H EMOGC ####[facility] (DEFAULT)[address] [place] [address] Platelet mean volume (Bld) [Entitic vol] 10.4 fL Normal 8.7-12.3 [place] Comment on above: Performed By: #### H EMOGC ####[facility] (DEFAULT)[address] [place] [address] Platelets (Bld) [#/Vol] 163 10*3/uL Normal 146-337 [place] Comment on above: Performed By: #### H EMOGC ####[facility] (DEFAULT)[address] [facility] [place] [address] RBC (Bld) [#/Vol] 4.27 10*6/uL Low 4.38-5.83 [place] Comment on above: Performed By: #### H EMOGC ####[facility] (DEFAULT)[address] [place] [address] RBC Distribution 13.9 % Normal 10.9-14.[address] [facility] Comment on above: Performed By: #### H EMOGC ####[facility] (DEFAULT)[address] [place] [address] WBC (Bld) [#/Vol] 3.69 10*3/uL Low 3.73-10.10 [place] Comment on above: Performed By: #### H EMOGC ####[facility] (DEFAULT)[address] [facility] [place] [address] Erythrocyte distribution width (RBC) [Ratio] 13.9 % 10.9 - 14.3 % [facility] Hematocrit (Bld) [Volume fraction] 37.5 % Low 39.6 - 48.8 % [facility] Hemoglobin (Bld) [Mass/Vol] 12.1 g/dL Low 13.4 - 16.8 g/dL [facility] Interpretation and review of laboratory results Abnormal [facility] MCH (RBC) [Entitic mass] 28.3 pg 26.1 - 33.3 pg [facility] MCHC (RBC) [Mass/Vol] 32.3 g/dL 31.9 - 36.5 g/dL [facility] MCV (RBC) [Entitic vol] 87.8 fL 79.0 - 94.5 fL [facility] Platelet mean volume (Bld) [Entitic vol] 10.4 fL 8.7 - 12.3 fL [facility] Platelets (Bld) [#/Vol] 163 10*3/uL 146 - 337 K/uL [facility] RBC (Bld) [#/Vol] 4.27 10*6/uL Low [facility] WBC (Bld) [#/Vol] 3.69 10*3/uL Low 3.73 - 10. 10 K/uL [facility] CHEM 7 (LYTES,BUN,CREA,GLUC) on 01-19-2024 Anion gap [Moles/Vol] 14 mmol/L Normal 7-17 [place] Comment on above: Performed By: #### NATHANIEL RAMÍREZ ####[facility] (DEFAULT)[address] [place] [address] Chloride [Moles/Vol] 106 mmol/L Normal 98-108 [place] Comment on above: Performed By: #### NATHANIEL RAMÍREZ ####[facility] (DEFAULT)[address] [place] [address] CO2 [Moles/Vol] 24 mmol/L Normal 21-31 [facility] Comment on above: Performed By: ###NATHANIEL HERNANDEZ ####[facility] (DEFAULT)[address] [place] [address] Creatinine [Mass/Vol] 1.13 mg/dL Normal 0.70-1.30 [place] Comment on above: Performed By: #### TJ RAMÍREZ7 ####[facility] (DEFAULT)[address] [place] [address] GFR/1.73 sq M.predicted among non-blacks MDRD (S/P/Bld) [Vol rate/Area] 78 mL/min/{1.73_m2} Normal >=60 [place] Comment on above: Result Comment: Repo rted eGFR is based on the CKD-EPI 2020 equation using creatinine, age, and sex. Performed By: #### TJ RAMÍREZ7 ####[facility] (DEFAULT)[address] [place] [address] Glucose [Mass/Vol] 86 mg/dL Normal 70-99 [facility] Comment on above: Performed By: #### TJ RAMÍREZ7 ####[facility] (DEFAULT)[address] [place] [address] Osmolality [Osmolality] 293 mosm/kg Normal 278-305 [place] Comment on above: Performed By: #### Rod BLOOM CHM7 ####[facility] (DEFAULT)[address] [place] [address] Potassium [Moles/Vol] 3.8 mmol/L Normal 3.5-5.0 [place] Comment on above: Performed By: #### Rod BLOOM CHM7 ####[facility] (DEFAULT)[address] [place] [address] Sodium [Moles/Vol] 140 mmol/L Normal 135-145 [facility] Comment on above: Performed By: #### Rod BLOOM CHM7 ####[facility] (DEFAULT)[address] [place] [address] Urea nitrogen [Mass/Vol] 16 mg/dL Normal 7-25 [place] Comment on above: Performed By: #### M HELEN BLOOMM7 ####[facility] (DEFAULT)[address] [place] [address] Urea nitrogen/Creatinine [Mass ratio] 14 mg/mg Normal [place] Comment on above: Performed By: #### M MERLE CHM7 ####[facility] (DEFAULT)[address] [place] [address] Anion gap [Moles/Vol] 14 mmol/L 7 - 17 mmol/L [facility] Chloride [Moles/Vol] 106 mmol/L 98 - 10 8 mmol/L [facility] CO2 [Moles/Vol] 24 mmol/L 21 - 31 mmol/L [facility] Creatinine [Mass/Vol] 1.13 mg/dL 0.70 - 1.30 mg/dL [facility] eGFR, CKD-EPI, Male 78 - PINF [facility] Comment on above: Reported eGFR is bas ed on the CKD-EPI 2020 equation using creatinine, age, and sex. Glucose [Mass/Vol] 86 mg/dL 70 - 99 mg/dL [facility] Osmolality Calc [Osmolality] 293 [facility] Potassium [Moles/Vol] 3.8 mmol/L 3.5 - 5.0 mmol/L [facility] Sodium [Moles/Vol] 140 mmol/L 135 - 145 mmol/L [facility] Urea nitrogen [Mass/Vol] 16 mg/dL 7 - 25 mg/dL [facility] Urea nitrogen/Creatinine [Mass ratio] 14 mg/mg [facility] EBV BY PCR, QUANTITATIVE,BLO ODon 01-19-2024 Ebv By Pcr, Quant, Blood <1000 Normal <1000 [place] Comment on above: Order Comment: This test was performed using a real time PCR assay. The dynamic range for this assay is 1000-5,000,000 IU/mL. A result <1000 IU/mL does not rule out the presence of EBV DNA in quantities below the sensitivity of this assay. This test was developed and its performance characteristics determined by [facility] [place]. It has not been cleared or approved by the FDA. The laboratory is regulated under CLIA as qualified to perform high-complexity testing. This test is used for clinical purposes. It should not be regarded as investigational or for research. Performed By: #### E BVPCR ####[facility] (DEFAULT)[address] [place] [address] HISTOPLASMA AND BLASTOMYCES ANTIGEN, ENZYME IMMUNOASSAY, SERMon 01-19-2024 Histoplasma/Blastomy antonia Ag Result Not detected Not Detected [facility] Comment on above: No antigen from Hist oplasma or Blastomyces detected. False negative results may occur depending on extent of disease, and/or site of infection. Repeat testing on a new specimen if clinically indicated. Histoplasma/Blastomy antonia Ag Value Not detected ng/mL [facility] Comment on above: ADDITIONAL INFORMATION This test was developed and its performance characteristics determined by [facility] in a manner consistent with CLIA requirements. This test has not been cleared or approved by the U.S. Food and Drug Administration. Test Performed by: [facility] [address] [place] [place] [address] [employer]: Rosendo Bose M.D. Ph.D.; CLIA# [id number] [facility] MAGNESIUMon 01-19-2024 Magnesium [Mass/Vol] 1.8 mg/dL Normal 1.6-2.6 [place] Comment on above: Performed By: #### M GO, CHM7 ####[facility] (DEFAULT)[address] [place] [address] Interpretation and review of laboratory results Normal [facility] Magnesium [Mass/Vol] 1.8 mg/dL 1.6 - 2 .6 mg/dL [facility] No Panel Informationon 01-19 [facility] TACROLIMUS LEVEL, TROUGH ([place] E DRUG LEVEL)Ordered By: Raymundo Mehta on 01-19-2024 Interpretation and review of laboratory results Normal [facility] Tacrolimus (Bld) [Mass/Vol] 6.8 ng/mL Bone Marrow Transplant: 4.0-12.0, Therapeutic: 5.0-15.0 [facility] Method performed is a chemiluminescent microparticle immunoasssay on the [employer] i2000. The range is based on experience at [facility] and users should be aware that target concentrations vary widely depending on concomitant therapy, time post-transplant, and desired degree of immunosuppression. [facility] TACROLIMUS LEVEL, TROUGH ([place] E DRUG LEVEL)on 01-19-2024 Tacrolimus, Trough 6.8 ng/mL Normal Bone Susana ow Transplant: 4.0-12.0, Therapeutic: 5.0-15.0 [place] Comment on above: Order Comment: Pleas e draw at specified interval PRIOR to dose. Do not hold dose to wait for level. Specimens batched twice per day, (M-F) and once per day weekendsMethod performed is a chemiluminescent microparticle immunoasssay on the [employer] i2000.The range is based on experience at [facility] and users should be aware that target concentrations vary widely depending on concomitant therapy, time post-transplant, and desired degree of immunosuppression. Performed By: #### T ACRO ####[facility] (DEFAULT)[address] [place] [address] US AV fistulaOrdered By: Diana Reyes on 01-19-2024 [facility] Work Phone: US AV fistulaon 01-19-2024 Radiology Study observation (narrative) [facility] AFP TUMOR MARKEROrdered By: Francisca Alaniz on 01-18-2024 AFP.tumor marker [Mass/Vol] ng/mL NINF - 8.1 ng/mL [facility] Comment on above: This test was perfor med on the MetaFLO Immunoassay platform by [employer] which is a two-site sandwich chemiluminescent immunoassay. It is important to note that assays using different manufacturers and/or methods may not be comparable. Interpretation and review of laboratory results Normal [facility] CBC,PLATELETSon 01-18-2024 Hematocrit (Bld) [Volume fraction] 38.4 % Low 39.6-48.8 [place] Comment on above: Performed By: #### H EMOGC ####[facility] (DEFAULT)[address] [place] [address] Hemoglobin (Bld) [Mass/Vol] 12.1 g/dL Low 13.4-16.8 [place] Comment on above: Performed By: #### H EMOGC ####[facility] (DEFAULT)[address] [facility] [place] [address] MCV (RBC) [Entitic vol] 88.3 fL Normal 79.0-94.5 [place] Comment on above: Performed By: #### H EMOGC ####[facility] (DEFAULT)[address] [facility] [place] [address] Mean Cell Hgb 27.8 pg Normal 26.1-33.3 [place] Comment on above: Performed By: #### H EMOGC ####[facility] (DEFAULT)[address] [facility] [place] [address] Mean Cell Hgb Conc 31.5 g/dL Low 31.9-36.5 [facility] Comment on above: Performed By: #### H EMOGC ####[facility] (DEFAULT)[address] [facility] [place] [address] Platelet mean volume (Bld) [Entitic vol] 10.4 fL Normal 8.7-12.3 [place] Comment on above: Performed By: #### H EMOGC ####[facility] (DEFAULT)[address] [facility] [place] [address] Platelets (Bld) [#/Vol] 183 10*3/uL Normal 146-337 [place] Comment on above: Performed By: #### H EMOGC ####[facility] (DEFAULT)[address] [facility] [place] [address] RBC (Bld) [#/Vol] 4.35 10*6/uL Low 4.38-5.83 [place] Comment on above: Performed By: #### H [facility] ####[facility] (DEFAULT)[address] [place] [address] RBC Distribution 13.9 % Normal 10.9-14.[address] [facility] Comment on above: Performed By: #### H [facility] ####[facility] (DEFAULT)[address] [place] [address] WBC (Bld) [#/Vol] 3.66 10*3/uL Low 3.73-10.10 [place] Comment on above: Performed By: #### H [facility] ####[facility] (DEFAULT)[address] [place] [address] Erythrocyte distribution width (RBC) [Ratio] 13.9 % 10.9 - 14.3 % [facility] Hematocrit (Bld) [Volume fraction] 38.4 % Low 39.6 - 48.8 % [facility] Hemoglobin (Bld) [Mass/Vol] 12.1 g/dL Low 13.4 - 16.8 g/dL [facility] Interpretation and review of laboratory results Abnormal [facility] MCH (RBC) [Entitic mass] 27.8 pg 26.1 - 33.3 pg [facility] MCHC (RBC) [Mass/Vol] 31.5 g/dL Low 31.9 - 36.5 g/dL [facility] MCV (RBC) [Entitic vol] 88.3 fL 79.0 - 94.5 fL [facility] Platelet mean volume (Bld) [Entitic vol] 10.4 fL 8.7 - 12.3 fL [facility] Platelets (Bld) [#/Vol] 183 10*3/uL 146 - 337 K/uL [facility] RBC (Bld) [#/Vol] 4.35 10*6/uL Low [facility] WBC (Bld) [#/Vol] 3.66 10*3/uL Low 3.73 - 10. 10 K/uL [facility] CHEM 7 (LYTES,BUN,CREA,GLUC) on 01-18-2024 Anion gap [Moles/Vol] 11 mmol/L Normal 7-17 [place] Comment on above: Performed By: #### C HM7, HFP, MGO, TSHQR ####[facility] (DEFAULT)[address] [facility] [place] [address] Chloride [Moles/Vol] 108 mmol/L Normal 98-108 [place] Comment on above: Performed By: #### C HM7, HFP, MGO, TSHQR ####[facility] (DEFAULT)[address] [facility] [place] [address] CO2 [Moles/Vol] 26 mmol/L Normal 21-31 [facility] Comment on above: Performed By: #### C HM7, HFP, MGO, TSHQR ####[facility] (DEFAULT)[address] [facility] [place] [address] Creatinine [Mass/Vol] 1.00 mg/dL Normal 0.70-1.30 [place] Comment on above: Performed By: #### C HM7, HFP, MGO, TSHQR ####[facility] (DEFAULT)[address] [facility] [place] [address] eGFR, CKD-EPI, Male > Normal >=60 [place] Comment on above: Result Comment: Repo rted eGFR is based on the CKD-EPI 2020 equation using creatinine, age, and sex. Performed By: #### C HM7, HFP, MGO, TSHQR ####[facility] (DEFAULT)[address] [facility] [place] [address] Glucose [Mass/Vol] 89 mg/dL Normal 70-99 [facility] Comment on above: Performed By: #### C HM7, HFP, MGO, TSHQR ####[facility] (DEFAULT)[address] [place] [address] Osmolality [Osmolality] 295 mosm/kg Normal 278-305 [place] Comment on above: Performed By: #### C HM7, HFP, MGO, TSHQR ####[facility] (DEFAULT)[address] [place] [address] Potassium [Moles/Vol] 3.9 mmol/L Normal 3.5-5.0 [place] Comment on above: Performed By: #### C HM7, HFP, MGO, TSHQR ####[facility] (DEFAULT)[address] [place] [address] Sodium [Moles/Vol] 141 mmol/L Normal 135-145 [facility] Comment on above: Performed By: #### C HM7, HFP, MGO, TSHQR ####[facility] (DEFAULT)[address] [place] [address] Urea nitrogen [Mass/Vol] 16 mg/dL Normal 7-25 [place] Comment on above: Performed By: #### C HM7, HFP, MGO, TSHQR ####[facility] (DEFAULT)[address] [place] [address] Urea nitrogen/Creatinine [Mass ratio] 16 mg/mg Normal [place] Comment on above: Performed By: #### C HM7, HFP, MGO, TSHQR ####[facility] (DEFAULT)[address] [place] [address] Anion gap [Moles/Vol] 11 mmol/L 7 - 17 mmol/L [facility] Chloride [Moles/Vol] 108 mmol/L 98 - 10 8 mmol/L [facility] CO2 [Moles/Vol] 26 mmol/L 21 - 31 mmol/L [facility] Creatinine [Mass/Vol] 1.00 mg/dL 0.70 - 1.30 mg/dL [facility] eGFR, CKD-EPI, Male - PINF [facility] Comment on above: Reported eGFR is bas ed on the CKD-EPI 2020 equation using creatinine, age, and sex. Glucose [Mass/Vol] 89 mg/dL 70 - 99 mg/dL [facility] Osmolality Calc [Osmolality] 295 [facility] Potassium [Moles/Vol] 3.9 mmol/L 3.5 - 5.0 mmol/L [facility] Sodium [Moles/Vol] 141 mmol/L 135 - 145 mmol/L [facility] Urea nitrogen [Mass/Vol] 16 mg/dL 7 - 25 mg/dL [facility] Urea nitrogen/Creatinine [Mass ratio] 16 mg/mg [facility] Cardiac echo study Procedure Ordered By: Gian Carlos on 01-18-2024 Ao ASC index 1.63 cm/m2 [facility] Work Phone: Ao peak meliton 1.46 m/s [facility] Work Phone: Ao SOV index 1.56 cm/m2 [facility] Work Phone: Ao STJ index 1.25 cm/m2 [facility] Work Phone: Ao VTI 35.74 cm [facility] Work Phone: Ascending aorta 3.39 cm [facility]: AV LVOT peak gradient 4 mmHg [facility] Work Phone: AV mean gradient 5 [facility]: AV peak gradient 9 mmHG [facility] Work Phone: AV valve area 3.09 cm2 [facility] Work Phone: AV Velocity Ratio 0.73 [facility] Work Phone: VEGA (continuity Vmax) 3.01 cm2 [facility] Work Phone: VEGA (continuity VTI) 3.09 cm2 [facility] Work Phone: VEGA index (continuity Vmax) 1.45 m/s [facility] Work Phone: VEGA index (continuity VTI) 1.49 cm2/m2 [facility] Work Phone: Avg e' pk meliton 0.07 m/s [facility] Work Phone: Avg E/e' ratio 19.45 [facility] Work Phone: Body surface area Derived from formula 2.08 m2 [facility] Work Phone: BP EF 62 % [facility] Work Phone: DI (Vmax) 0.73 [facility] Work Phone: DI (VTI) 0.74 m/2 [facility] Work Phone: E wave decelartion time 180.38 msec [facility] Work Phone: e' lateral pk meliton 0.0789 m/s [facility] Work Phone: e' lateral pk meliton 0.08 m/s [facility] Work Phone: e' septal pk meliton 0.0653 m/s [facility] Work [facility]: e' septal pk meliton 0.07 m/s [facility] Work Phone: E/A ratio 2.67 [facility] Work Phone: E/e' lateral [facility] 17.62 [facility] Work Phone: E/e' septal ratio 21.29 [facility] Work Phone: [phone] EF SP 2CH 66 [facility] Work Phone: EF SP 4CH 58 [facility] Work Phone: FS 28 % 28 - 44 % [facility] Work Phone: [phone] IVC ostium 2.30 cm [facility] Work Phone: IVS 1.11 cm [facility] Work Phone: LA AREA 2CH 24.36 cm2 [facility] Work Phone: LA area 4CH 20.36 cm2 [facility] Work Phone: LA ESV BP (MOD) 64 mL [facility] Work Phone: LA ESV BP (MOD) index 31 mL/m2 [facility] Work Phone: [phone] LA ESV SP 2CH (MOD) 76 mL [facility] Work Phone: LA ESV SP 4CH (MOD) 53 mL [facility] Work Phone: LV EDV BP 180 mL [facility] Work Phone: [phone] LV EDV SP 2CH 190 mL [facility] Work Phone: LV EDV SP 4CH 166 mL [facility] Work Phone: LV ESV BP 69 mL [facility] Work Phone: LV ESV SP 2CH 65 mL [facility] Work Phone: LV ESV SP 4CH 70 mL [facility] Work Phone: LV mass 254.73 g [facility] Work Phone: LV Mass Index 122.5 g/m2 [facility] Work Phone: LV RWT 0.42 [facility] Work Phone: LV stroke volume BP (ml) 111 mL [facility] Work Phone: LV stroke volume index BP 53.37 mL/m2 [facility] Work Phone: LVIDD 5.53 cm [facility] Work Phone: [phone] LVIDS 3.97 cm [facility] Work Phone: LVOT area 4.15 cm2 [facility] Work Phone: LVOT diameter 2.30 cm [facility] Work Phone: LVOT peak meliton 1.06 m/s [facility] Work Phone: LVOT peak VTI 26.61 cm [facility] Work Phone: LVOT stroke volume 111 cm3 [facility] Work Phone: LVOT stroke volume index 53.13 ml/m2 [facility] Work Phone: Mr max meliton 4.21 m/s [facility] Work Phone: MR VTI 134.50 cm [facility] Work Phone: MV mean gradient 3 mmHg [facility] Work Phone: MV peak gradient 11 mmHg [facility] Work Phone: MV pk A meliton 0.52 m/s [facility] Work Phone: MV pk E meliton 1.39 m/s [facility] Work Phone: MV stenosis pressure 1/2 time 58.56 ms [facility] Work Phone: MV valve area by continuity eq 2.93 cm2 [facility] Work Phone: MV valve area p 1/2 method 3.76 cm2 [facility] Work Phone: MV VTI 37.70 cm [facility] Work Phone: MVA (continuity VTI) 2.92 cm [facility] Work Phone: OSU AV VTI RATIO PRE STRESS 0.74 [facility] Work Phone: OSU ECHO LV BIPLANE SYSTOLIC VOLUME INDEX 33.17 mL/m2 [facility] Work Phone: O[facility] ECHO LV BP DIASTOLIC VOLUME INDEX 86.54 mL/m2 [facility] Work Phone: OSU ECHO MR PEAK GRADIENT 70.94 mmHg [facility] Work Phone: PW 1.16 cm [facility] Work Phone: RA area 4CH (MOD) 14.50 cm2 [facility] Work Phone: RA vol index 4CH (MOD) 18.27 mL/m2 [facility] Work Phone: Right atrium volume 4 chamber method of disks 38 mL [facility] Work Phone: RV Area diastolic 33.20 cm2 [facility] Work Phone: RV Area systolic 21.30 cm2 [facility] Work Phone: RV basal diam 4.52 cm [facility] Work Phone: RV Fractional area change 35.8 % [facility] Work Phone: RV long diam 8.96 cm [facility] Work Phone: RV mid diam 3.70 cm [facility] Work Phone: RV S' 22.01 cm/s [facility] Work Phone: RVOT peak gradient 4 mmHg [facility] Work Phone: RVOT peak meliton 0.96 m/s [facility] Work Phone: RVOT peak VTI 20.86 cm [facility] Work Phone: Sinus 3.24 cm [facility] Work Phone: STJ 2.61 cm [facility] Work Phone: Stroke Volume 111 cm/mL [facility] Work Phone: Stroke volume index [facility] Work [facility]: TAPSE 2.19 cm [facility] Work Phone: [facility] Work Phone: Cardiac echo study Procedure on [...] echocardiography study was performed. Imaging system used: [employer]. Indications Indications for study: shortness of breath. [facility] Radiology Study observation (narrative) [facility] HEPATIC FUNCTION PANELon Albumin [Mass/Vol] 3.5 g/dL Normal 3.5-5.0 [facility] Comment on above: Performed By: #### C HM7, HFP, MGO, TSHQR ####[facility] (DEFAULT)[address] [place] [address] ALP [Catalytic activity/Vol] 70 U/L Normal 32-126 [place] Comment on above: Performed By: #### C HM7, HFP, MGO, TSHQR ####[facility] (DEFAULT)[address] [place] [address] ALT [Catalytic activity/Vol] 8 U/L Low 10-52 [place] Comment on above: Performed By: #### C HM7, HFP, MGO, TSHQR ####[facility] (DEFAULT)[address] [place] [address] AST [Catalytic activity/Vol] 20 U/L Normal 10-39 [place] Comment on above: Performed By: #### C HM7, HFP, MGO, TSHQR ####[facility] (DEFAULT)[address] [place] [address] Bilirubin [Mass/Vol] 1.7 mg/dL High <1.5 [place] Comment on above: Performed By: #### C HM7, HFP, MGO, TSHQR ####[facility] (DEFAULT)[address] [facility] [place] [address] Bilirubin.indirect [Mass/Vol] 0.4 mg/dL High <0.3 [place] Comment on above: Performed By: #### C HM7, HFP, MGO, TSHQR ####[facility] (DEFAULT)[address] [place] [address] Protein [Mass/Vol] 6.0 g/dL Low 6.4-8.3 [facility] Comment on above: Performed By: #### C HM7, HFP, MGO, TSHQR ####[facility] (DEFAULT)[address] [place] [address] Albumin [Mass/Vol] 3.5 g/dL 3.5 - 5.0 g/dL [facility] ALP [Catalytic activity/Vol] 70 U/L 32 - 126 U/L [facility] ALT [Catalytic activity/Vol] 8 U/L Low 10 - 52 U/L [facility] AST [Catalytic activity/Vol] 20 U/L 10 - 39 U/L [facility] Bilirubin [Mass/Vol] 1.7 mg/dL High NINF - 1.5 mg/dL [facility] Bilirubin.direct [Mass/Vol] 0.4 mg/dL High NINF - 0.3 mg/dL [facility] Protein [Mass/Vol] 6.0 g/dL Low 6.4 - 8.3 g/dL [facility] MAGNESIUMon 01-18-2024 Magnesium [Mass/Vol] 1.5 mg/dL Low 1.6-2.6 [place] Comment on above: Performed By: #### C HM7, HFP, MGO, TSHQR ####[facility] (DEFAULT)[address] [place] [address] Magnesium [Mass/Vol] 1.5 mg/dL Low 1.6 - 2 .6 mg/dL [facility] No Panel Informationon 01-18 Interpretation and review of laboratory results Abnormal [facility] PT,INR,PTTon 01-18-2024 aPTT Coag (Bld) [Time] 30.0 s Normal 24.0-34.3 [place] Comment on above: Performed By: #### P TPTT ####[facility] (DEFAULT)[address] [place] [address] INR Coag (PPP) [Relative time] 1.1 {INR} Normal 0.9-1.1 [place] Comment on above: Performed By: #### P TPTT ####[facility] (DEFAULT)[address] [place] [address] PT Coag (PPP) [Time] 14.5 s High 11.9-14.2 [place] Comment on above: Performed By: #### P TPTT ####[facility] (DEFAULT)[address] [place] [address] aPTT Coag (PPP) [Time] 30.0 s [facility] INR Coag (Bld) [Relative time] 1.1 {INR} 0.9 - 1.1 [facility] Interpretation and review of laboratory results Abnormal [facility] PT Coag (PPP) [Time] 14.5 s High [facility] TSH W/FT4 REFLEXon Interpretation and review of laboratory results Normal [facility] TSH Qn 2.660 m[IU]/L [facility] TSH 2.660 uIU/mL Normal 0.550-4.780 [place] Comment on above: Performed By: #### C HM7, HFP, MGO, TSHQR ####[facility] (DEFAULT)[address] [place] [address] AFP TUMOR MARKERon AFP Tumor Marker <2.2 Normal <8.[address] [facility] Comment on above: Result Comment: This test was performed on the [employer] IM Immunoassay platform by [employer] which is a two-site sandwich chemiluminescent immunoassay. It is important to note that assays using different manufacturers and/or methods may not be comparable. Performed By: #### A FPR ####[facility] (DEFAULT)[address] [place] [address] DARYL AURIS SCREEN BY PCRO rdered By: Mynor Alejandro on 01-17-2024 Daryl auris Screen by PCR Not detected Not Detected [facility] Interpretation and review of laboratory results Normal [facility] This test was perfor med using a real-time PCR assay. This test was developed, and its performance characteristics determined by [facility] [place]. It has not been cleared or approved by the FDA. The laboratory is regulated under CLIA as qualified to perform high-complexity testing. This test is used for clinical purposes. It should not be regarded as investigational or for research. [facility] CBC,PLATELETSon 01-17-2024 Hematocrit (Bld) [Volume fraction] 37.2 % Low 39.6-48.8 [place] Comment on above: Performed By: #### H [facility] ####[facility] (DEFAULT)[address] [place] [address] Hemoglobin (Bld) [Mass/Vol] 12.0 g/dL Low 13.4-16.8 [place] Comment on above: Performed By: #### H [facility] ####[facility] (DEFAULT)[address] [place] [address] MCV (RBC) [Entitic vol] 86.5 fL Normal 79.0-94.5 [place] Comment on above: Performed By: #### H [facility] ####[facility] (DEFAULT)[address] [place] [address] Mean Cell Hgb 27.9 pg Normal 26.1-33.3 [place] Comment on above: Performed By: #### H EMOGC ####[facility] (DEFAULT)[address] [place] [address] Mean Cell Hgb Conc 32.3 g/dL Normal 31.9-36.5 [facility] Comment on above: Performed By: #### H EMOGC ####[facility] (DEFAULT)[address] [facility] [place] [address] Platelet mean volume (Bld) [Entitic vol] 10.5 fL Normal 8.7-12.3 [place] Comment on above: Performed By: #### H EMOGC ####[facility] (DEFAULT)[address] [facility] [place] [address] Platelets (Bld) [#/Vol] 159 10*3/uL Normal 146-337 [place] Comment on above: Performed By: #### H EMOGC ####[facility] (DEFAULT)[address] [facility] [place] [address] RBC (Bld) [#/Vol] 4.30 10*6/uL Low 4.38-5.83 [place] Comment on above: Performed By: #### H EMOGC ####[facility] (DEFAULT)[address] [place] [address] RBC Distribution 14.0 % Normal 10.9-14.[address] [facility] Comment on above: Performed By: #### H EMOGC ####[facility] (DEFAULT)[address] [facility] [place] [address] WBC (Bld) [#/Vol] 3.69 10*3/uL Low 3.73-10.10 [place] Comment on above: Performed By: #### H EMOGC ####[facility] (DEFAULT)[address] [place] [address] Erythrocyte distribution width (RBC) [Ratio] 14.0 % 10.9 - 14.3 % [facility] Hematocrit (Bld) [Volume fraction] 37.2 % Low 39.6 - 48.8 % [facility] Hemoglobin (Bld) [Mass/Vol] 12.0 g/dL Low 13.4 - 16.8 g/dL [facility] Interpretation and review of laboratory results Abnormal [facility] MCH (RBC) [Entitic mass] 27.9 pg 26.1 - 33.3 pg [facility] MCHC (RBC) [Mass/Vol] 32.3 g/dL 31.9 - 36.5 g/dL [facility] MCV (RBC) [Entitic vol] 86.5 fL 79.0 - 94.5 fL [facility] Platelet mean volume (Bld) [Entitic vol] 10.5 fL 8.7 - 12.3 fL [facility] Platelets (Bld) [#/Vol] 159 10*3/uL 146 - 337 K/uL [facility] RBC (Bld) [#/Vol] 4.30 10*6/uL Low [facility] WBC (Bld) [#/Vol] 3.69 10*3/uL Low 3.73 - 10. 10 K/uL [facility] CHEM 7 (LYTES,BUN,CREA,GLUC) on 01-17-2024 Anion gap [Moles/Vol] 13 mmol/L Normal 7-17 [place] Comment on above: Performed By: #### C HM7, HFP, MGO ####[facility] (DEFAULT)[address] [place] [address] Chloride [Moles/Vol] 109 mmol/L High 98-108 [place] Comment on above: Performed By: #### C HM7, HFP, MGO ####[facility] (DEFAULT)[address] [place] [address] CO2 [Moles/Vol] 21 mmol/L Normal 21-31 [facility] Comment on above: Performed By: #### TAVO GONG, MGO ####[facility] (DEFAULT)[address] [facility] [place] [address] Creatinine [Mass/Vol] 1.04 mg/dL Normal 0.70-1.30 [place] Comment on above: Performed By: #### TAVO GONG, MGO ####[facility] (DEFAULT)[address] [place] [address] GFR/1.73 sq M.predicted among non-blacks MDRD (S/P/Bld) [Vol rate/Area] 86 mL/min/{1.73_m2} Normal >=60 [place] Comment on above: Result Comment: Repo rted eGFR is based on the CKD-EPI 2020 equation using creatinine, age, and sex. Performed By: #### TAVO GONG, MGO ####[facility] (DEFAULT)[address] [place] [address] Glucose [Mass/Vol] 82 mg/dL Normal 70-99 [facility] Comment on above: Performed By: #### TAVO GONG, MGO ####[facility] (DEFAULT)[address] [place] [address] Osmolality [Osmolality] 292 mosm/kg Normal 278-305 [place] Comment on above: Performed By: #### Chinedu MEDLEY, TAVO, MGO ####[facility] (DEFAULT)[address] [facility] [place] [address] Potassium [Moles/Vol] 4.4 mmol/L Normal 3.5-5.0 [place] Comment on above: Performed By: #### Chinedu HMJessica, HFP, MGO ####[facility] (DEFAULT)[address] [facility] [place] [address] Sodium [Moles/Vol] 139 mmol/L Normal 135-145 [facility] Comment on above: Performed By: #### C HM7, HFP, MGO ####[facility] (DEFAULT)[address] [place] [address] Urea nitrogen [Mass/Vol] 17 mg/dL Normal 7-25 [place] Comment on above: Performed By: #### C HM7, HFP, MGO ####[facility] (DEFAULT)[address] [place] [address] Urea nitrogen/Creatinine [Mass ratio] 16 mg/mg Normal [place] Comment on above: Performed By: #### C HM7, HFP, MGO ####[facility] (DEFAULT)[address] [place] [address] Anion gap [Moles/Vol] 13 mmol/L 7 - 17 mmol/L [facility] Chloride [Moles/Vol] 109 mmol/L High 98 - 10 8 mmol/L [facility] CO2 [Moles/Vol] 21 mmol/L 21 - 31 mmol/L [facility] Creatinine [Mass/Vol] 1.04 mg/dL 0.70 - 1.30 mg/dL [facility] eGFR, CKD-EPI, Male 86 - PINF [facility] Comment on above: Reported eGFR is bas ed on the CKD-EPI 2020 equation using creatinine, age, and sex. Glucose [Mass/Vol] 82 mg/dL 70 - 99 mg/dL [facility] Osmolality Calc [Osmolality] 292 [facility] Potassium [Moles/Vol] 4.4 mmol/L 3.5 - 5.0 mmol/L [facility] Sodium [Moles/Vol] 139 mmol/L 135 - 145 mmol/L [facility] Urea nitrogen [Mass/Vol] 17 mg/dL 7 - 25 mg/dL [facility] Urea nitrogen/Creatinine [Mass ratio] 16 mg/mg [facility] ABDOMEN/PELVIS WITHOUT CO NTRASTon 01-17-2024 CT ABDOMEN/PELVIS WITHOUT CONTRAST Normal [place] CT Abdomen and Pelvis WO con traston [...] unremarkable. Kidneys: Severe atrophy of the bilateral [place] kidney is without hydronephrosis. Right lower quadrant [...] unremarkable. Kidneys: Severe atrophy of the bilateral [place] kidney is without hydronephrosis. Right lower quadrant [...] [facility] Radiology Study observation (narrative) [facility] HEPATIC FUNCTION PANELon Albumin [Mass/Vol] 3.5 g/dL Normal 3.5-5.0 [facility] Comment on above: Performed By: #### C HM7, HFP, MGO ####[facility] (DEFAULT)[address] [place] [address] ALP [Catalytic activity/Vol] 73 U/L Normal 32-126 [place] Comment on above: Performed By: #### C HM7, HFP, MGO ####[facility] (DEFAULT)[address] [place] [address] ALT [Catalytic activity/Vol] 7 U/L Low 10-52 [place] Comment on above: Performed By: #### C HM7, HFP, MGO ####[facility] (DEFAULT)[address] [place] [address] AST [Catalytic activity/Vol] 25 U/L Normal 10-39 [place] Comment on above: Performed By: #### C HM7, HFP, MGO ####[facility] (DEFAULT)[address] [place] [address] Bilirubin [Mass/Vol] 1.8 mg/dL High <1.5 [place] Comment on above: Performed By: #### C HM7, HFP, MGO ####[facility] (DEFAULT)[address] [place] [address] Bilirubin.indirect [Mass/Vol] 0.3 mg/dL High <0.3 [place] Comment on above: Performed By: #### C HM7, HFP, MGO ####[facility] (DEFAULT)[address] [place] [address] Protein [Mass/Vol] 6.0 g/dL Low 6.4-8.3 [facility] Comment on above: Performed By: #### C HM7, HFP, MGO ####[facility] (DEFAULT)[address] [place] [address] Albumin [Mass/Vol] 3.5 g/dL 3.5 - 5.0 g/dL [facility] ALP [Catalytic activity/Vol] 73 U/L 32 - 126 U/L [facility] ALT [Catalytic activity/Vol] 7 U/L Low 10 - 52 U/L [facility] AST [Catalytic activity/Vol] 25 U/L 10 - 39 U/L [facility] Bilirubin [Mass/Vol] 1.8 mg/dL High NINF - 1.5 mg/dL [facility] Bilirubin.direct [Mass/Vol] 0.3 mg/dL High NINF - 0.3 mg/dL [facility] Protein [Mass/Vol] 6.0 g/dL Low 6.4 - 8.3 g/dL [facility] HISTOPLASMA AND BLASTOMYCES ANTIGEN, ENZYME IMMUNOASSAY, SERMon 01-17-2024 Histoplasma/Blastomy antonia Ag Result Not detected Normal Not Detected [place] Comment on above: Result Comment: No a ntigen from Histoplasma or Blastomyces detected. Falsenegative results may occur depending on extent of disease,and/or site of infection. Repeat testing on a new specimenif clinically indicated. Performed By: #### H CORAL ####[facility] (DEFAULT)[address] [place] [id number] Histoplasma/Blastomy antonia Ag Value Not detected Normal [place] Comment on above: Result Comment: ---- ADDITIONAL INFORMATION This test was developed and its performance characteristicsdetermined by [facility] in a manner consistent with CLIArequirements. This test has not been cleared or approved bythe U.S. Food and Drug Administration.Test Performed by:[address] Director: Rosendo Bose M.D. Ph.D.; CLIA# [id number] Performed By: #### H CORAL ####[facility] (DEFAULT)[address] [place] [address] MAGNESIUMon 01-17-2024 Magnesium [Mass/Vol] 1.7 mg/dL Normal 1.6-2.6 [place] Comment on above: Performed By: #### C HM7, HFP, MGO ####[facility] (DEFAULT)[address] [place] [address] Interpretation and review of laboratory results Normal [facility] Magnesium [Mass/Vol] 1.7 mg/dL 1.6 - 2 .6 mg/dL [facility] No Panel Informationon 01-17 Interpretation and review of laboratory results Abnormal [facility] PT,INR,PTTon 01-17-2024 aPTT Coag (PPP) [Time] 29.9 s [facility] INR Coag (Bld) [Relative time] 1.1 {INR} 0.9 - 1.1 [facility] Interpretation and review of laboratory results Abnormal [facility] PT Coag (PPP) [Time] 14.5 s High [facility] aPTT Coag (Bld) [Time] 29.9 s Normal 24.0-34.3 [place] Comment on above: Performed By: #### P TPTT ####[facility] (DEFAULT)[address] [place] [id number] INR Coag (PPP) [Relative time] 1.1 {INR} Normal 0.9-1.1 [place] Comment on above: Performed By: #### P TPTT ####[facility] (DEFAULT)[address] [place] [address] PT Coag (PPP) [Time] 14.5 s High 11.9-14.2 [place] Comment on above: Performed By: #### P TPTT ####[facility] (DEFAULT)[address] [place] [address] B-TYPE NATRIURETIC PEPTIDE ( BRAIN)on 01-16-2024 Interpretation and review of laboratory results Abnormal [facility] Natriuretic peptide B (Bld) [Mass/Vol] 212 pg/mL High 0 - 100 pg/mL [facility] Natriuretic peptide B (Bld) [Mass/Vol] 212 pg/mL High 0-100 [place] Comment on above: Performed By: #### B ORACLE AGILE PLM CONSULTANT ####[facility] (DEFAULT)[address] [place] [address] CALCIUMon 01-16-2024 Calcium [Mass/Vol] 8.5 mg/dL Low 8.6-10.5 [facility] Comment on above: Performed By: #### C A, CHM7, IPB, MGO, HFP ####[facility] (DEFAULT)[address] [place] [address] Calcium [Mass/Vol] 8.5 mg/dL Low 8.6 - 10. 5 mg/dL [facility] DARYL AURIS SCREEN BY PCRo n 01-16-2024 Daryl auris Screen by PCR Not detected Normal Not Detected [place] Comment on above: Order Comment: This test was performed using a real-time PCR assay. This test was developed, and its performance characteristics determined by [facility]. It has not been cleared or approved by the FDA. The laboratory is regulated under CLIA as qualified to perform high-complexity testing. This test is used for clinical purposes. It should not be regarded as investigational or for research. Performed By: #### C ANDIDA AURIS SCREEN BY PCR ####[facility] (DEFAULT)[address] [facility] [place] [address] CBC AND ELECTRONIC DIFFon Abs Baso Auto < Normal 0.00-0.09 [place] Comment on above: Performed By: #### L AB980 ####[facility] (DEFAULT)[address] [facility] [place] [address] Basophils/100 WBC (Bld) 0.6 % Normal [place] Comment on above: Performed By: #### L AB980 ####[facility] (DEFAULT)[address] [facility] [place] [address] DIFF STATUS Electronic Differential Normal [place] Comment on above: Performed By: #### L AB980 ####[facility] (DEFAULT)[address] [facility] [place] [address] Eosinophils (Bld) [#/Vol] 0.09 10*3/uL Normal 0.00-0.48 [place] Comment on above: Performed By: #### L AB980 ####[facility] (DEFAULT)[address] [place] [address] Eosinophils/100 WBC (Bld) 2.5 % Normal [place] Comment on above: Performed By: #### L AB980 ####[facility] (DEFAULT)[address] [facility] [place] [address] Hematocrit (Bld) [Volume fraction] 37.4 % Low 39.6-48.8 [place] Comment on above: Performed By: #### L AB980 ####[facility] (DEFAULT)[address] [facility] [place] [address] Hemoglobin (Bld) [Mass/Vol] 12.1 g/dL Low 13.4-16.8 [place] Comment on above: Performed By: #### L AB980 ####[facility] (DEFAULT)[address] [facility] [place] [address] Immature Grans % 0.3 % Normal [facility] Comment on above: Performed By: #### L AB980 ####[facility] (DEFAULT)[address] [place] [address] Immature Grans Absolute < Normal <=0.07 [place] Comment on above: Performed By: #### L AB980 ####[facility] (DEFAULT)[address] [place] [address] Lymphocytes (Bld) [#/Vol] 1.16 10*3/uL Normal 0.83-3.57 [place] Comment on above: Performed By: #### L AB980 ####[facility] (DEFAULT)[address] [place] [address] Lymphocytes/100 WBC (Bld) 32.0 % Normal [place] Comment on above: Performed By: #### L AB980 ####[facility] (DEFAULT)[address] [place] [address] MCV (RBC) [Entitic vol] 87.8 fL Normal 79.0-94.5 [place] Comment on above: Performed By: #### L AB980 ####[facility] (DEFAULT)[address] [facility] [place] [address] Mean Cell Hgb 28.4 pg Normal 26.1-33.3 [place] Comment on above: Performed By: #### L AB980 ####[facility] (DEFAULT)[address] [place] [address] Mean Cell Hgb Conc 32.4 g/dL Normal 31.9-36.5 [facility] Comment on above: Performed By: #### L AB980 ####[facility] (DEFAULT)[address] [place] [address], [place] [address] Monocytes (Bld) [#/Vol] 0.43 10*3/uL Normal 0.24-0.93 [place] Comment on above: Performed By: #### L AB980 ####[facility] (DEFAULT)[address] [place] [address] Monocytes/100 WBC (Bld) 11.9 % Normal [place] Comment on above: Performed By: #### L AB980 ####[facility] (DEFAULT)[address] [place] [address] Nucleated RBC 0.0 /100 WBC Normal <=0.2 [facility] Comment on above: Performed By: #### L AB980 ####[facility] (DEFAULT)[address] [place] [address] Platelet mean volume (Bld) [Entitic vol] 10.1 fL Normal 8.7-12.3 [place] Comment on above: Performed By: #### L AB980 ####[facility] (DEFAULT)[address] [place] [address] Platelets (Bld) [#/Vol] 155 10*3/uL Normal 146-337 [place] Comment on above: Performed By: #### L AB980 ####[facility] (DEFAULT)[address] [facility] [place] [address] RBC (Bld) [#/Vol] 4.26 10*6/uL Low 4.38-5.83 [place] Comment on above: Performed By: #### L AB980 ####[facility] (DEFAULT)[address] [place] [address] RBC Distribution 14.0 % Normal 10.9-14.[address] [facility] Comment on above: Performed By: #### L AB980 ####[facility] (DEFAULT)[address] [place] [address] Segs + Bands Auto 52.7 % Normal [facility] Comment on above: Performed By: #### L AB980 ####[facility] (DEFAULT)[address] [place] [address] Segs + Bands,Absolute Auto 1.91 K/uL Normal 1.57-6.19 [place] Comment on above: Performed By: #### L AB980 ####[facility] (DEFAULT)[address] [place] [address] WBC (Bld) [#/Vol] 3.62 10*3/uL Low 3.73-10.10 [place] Comment on above: Performed By: #### L AB980 ####[facility] (DEFAULT)[address] [place] [address] Basophils (Bld) [#/Vol] K/uL 0.00 - 0.09 K/uL [facility] Basophils/100 WBC (Bld) 0.6 % [facility] Differential cell count method Nom (Bld) Electronic Differential [facility] Eosinophils (Bld) [#/Vol] 0.09 10*3/uL 0.00 - 0.48 K/uL [facility] Eosinophils/100 WBC (Bld) 2.5 % [facility] Erythrocyte distribution width (RBC) [Ratio] 14.0 % 10.9 - 14.3 % [facility] Hematocrit (Bld) [Volume fraction] 37.4 % Low 39.6 - 48.8 % [facility] Hemoglobin (Bld) [Mass/Vol] 12.1 g/dL Low 13.4 - 16.8 g/dL [facility] Immature granulocytes (Bld) [#/Vol] K/uL NINF - 0.07 K/uL [facility] Immature granulocytes/100 WBC (Bld) 0.3 % [facility] Interpretation and review of laboratory results Abnormal [facility] Lymphocytes (Bld) [#/Vol] 1.16 10*3/uL 0.83 - 3.57 K/uL [facility] Lymphocytes/100 WBC (Bld) 32.0 % [facility] MCH (RBC) [Entitic mass] 28.4 pg 26.1 - 33.3 pg [facility] MCHC (RBC) [Mass/Vol] 32.4 g/dL 31.9 - 36.5 g/dL [facility] MCV (RBC) [Entitic vol] 87.8 fL 79.0 - 94.5 fL [facility] Monocytes (Bld) [#/Vol] 0.43 10*3/uL 0.24 - 0.93 K/uL [facility] Monocytes/100 WBC (Bld) 11.9 % [facility] Neutrophils (Bld) [#/Vol] 1.91 10*3/uL 1.57 - 6.19 K/uL [facility] Nucleated RBC/100 WBC (Bld) [Ratio] 0.0 % [facility] Platelet mean volume (Bld) [Entitic vol] 10.1 fL 8.7 - 12.3 fL [facility] Platelets (Bld) [#/Vol] 155 10*3/uL 146 - 337 K/uL [facility] RBC (Bld) [#/Vol] 4.26 10*6/uL Low [facility] Segmented neutrophils/100 WBC (Bld) 52.7 % [facility] WBC (Bld) [#/Vol] 3.62 10*3/uL Low 3.73 - 10. 10 K/uL [facility] CHEM 7 (LYTES,BUN,CREA,GLUC) on 02-17-2024 Anion gap [Moles/Vol] 11 mmol/L Normal 7-17 [place] Comment on above: Performed By: #### C Tray, CHM7, IPB, MGO, HFP ####[facility] (DEFAULT)[address] [facility] [place] [address] Chloride [Moles/Vol] 108 mmol/L Normal 98-108 [place] Comment on above: Performed By: #### C A, CHM7, IPB, MGO, HFP ####[facility] (DEFAULT)[address] [facility] [place] [address] CO2 [Moles/Vol] 24 mmol/L Normal 21-31 [facility] Comment on above: Performed By: #### C Tray, CHM7, IPB, MGO, HFP ####[facility] (DEFAULT)[address] [place] [address] Creatinine [Mass/Vol] 1.04 mg/dL Normal 0.70-1.30 [place] Comment on above: Performed By: #### C Tray, CHM7, IPB, MGO, HFP ####[facility] (DEFAULT)[address] [place] [address] GFR/1.73 sq M.predicted among non-blacks MDRD (S/P/Bld) [Vol rate/Area] 86 mL/min/{1.73_m2} Normal >=60 [place] Comment on above: Result Comment: Repo rted eGFR is based on the CKD-EPI 2020 equation using creatinine, age, and sex. Performed By: #### C A, CHM7, IPB, MGO, HFP ####[facility] (DEFAULT)[address] [facility] [place] [address] Glucose [Mass/Vol] 95 mg/dL Normal 70-99 [facility] Comment on above: Performed By: #### C A, CHM7, IPB, MGO, HFP ####[facility] (DEFAULT)[address] [place] [address] Osmolality [Osmolality] 293 mosm/kg Normal 278-305 [place] Comment on above: Performed By: #### Chinedu Feliz, CHM7, IPB, MGO, HFP ####[facility] (DEFAULT)[address] [place] [address] Potassium [Moles/Vol] 4.0 mmol/L Normal 3.5-5.0 [place] Comment on above: Performed By: #### Chinedu Feliz, CHM7, IPB, MGO, HFP ####[facility] (DEFAULT)[address] [place] [address] Sodium [Moles/Vol] 139 mmol/L Normal 135-145 [facility] Comment on above: Performed By: #### Chinedu Feliz, CHM7, IPB, MGO, HFP ####[facility] (DEFAULT)[address] [place] [address] Urea nitrogen [Mass/Vol] 19 mg/dL Normal 7-25 [place] Comment on above: Performed By: #### Chinedu Feliz, CHM7, IPB, MGO, HFP ####[facility] (DEFAULT)[address] [place] [address] Urea nitrogen/Creatinine [Mass ratio] 18 mg/mg Normal [place] Comment on above: Performed By: #### Chinedu Feliz, CHM7, IPB, MGO, HFP ####[facility] (DEFAULT)[address] [place] [address] Anion gap [Moles/Vol] 11 mmol/L 7 - 17 mmol/L [facility] Chloride [Moles/Vol] 108 mmol/L 98 - 10 8 mmol/L [facility] CO2 [Moles/Vol] 24 mmol/L 21 - 31 mmol/L [facility] Creatinine [Mass/Vol] 1.04 mg/dL 0.70 - 1.30 mg/dL [facility] eGFR, CKD-EPI, Male 86 - PINF [facility] Comment on above: Reported eGFR is bas ed on the CKD-EPI 2020 equation using creatinine, age, and sex. Glucose [Mass/Vol] 95 mg/dL 70 - 99 mg/dL [facility] Osmolality Calc [Osmolality] 293 [facility] Potassium [Moles/Vol] 4.0 mmol/L 3.5 - 5.0 mmol/L [facility] Sodium [Moles/Vol] 139 mmol/L 135 - 145 mmol/L [facility] Urea nitrogen [Mass/Vol] 19 mg/dL 7 - 25 mg/dL [facility] Urea nitrogen/Creatinine [Mass ratio] 18 mg/mg [facility] D-DIMER,QUANTITATIVEon 01-16 D-Dimer, High Sensitivity 0.67 mcg/mL FEU High <0.50 [place] Comment on above: Result Comment: The D-Dimer assay is intended for use in conjuction with a clinical pretest probability (PTP) assessment model to exclude pulmonary embolism (PE) and as an aid in the diagnosis of Deep Vein Thrombosis (DVT) in outpatients suspected of PE or DVT. For the assay in use at [facility] ([facility]), a cutoff of <0.50 mcg/mL has a Negative Predictive Value of 99.7% for exclusion of DVT in low and moderate PTP patients. Performed By: #### P TPTT, HSDDI ####[facility] (DEFAULT)[address] [place] [address] D-DIMER,QUANTITATIVEOrdered By: Shaji Kelly on 01-16-2024 Fibrin D-dimer FEU (PPP) [Mass/Vol] 0.67 High NINF [facility] Comment on above: The D-Dimer assay is intended for use in conjuction with a clinical pretest probability (PTP) assessment model to exclude pulmonary embolism (PE) and as an aid in the diagnosis of Deep Vein Thrombosis (DVT) in outpatients suspected of PE or DVT. For the assay in use at [facility] ([facility]), a cutoff of <0.50 mcg/mL has a Negative Predictive Value of 99.7% for exclusion of DVT in low and moderate PTP patients. Interpretation and review of laboratory results Abnormal [facility] HEPATIC FUNCTION PANELon Albumin [Mass/Vol] 3.7 g/dL Normal 3.5-5.0 [facility] Comment on above: Performed By: #### C A, CHM7, IPB, MGO, HFP ####[facility] (DEFAULT)[address] [place] [address] ALP [Catalytic activity/Vol] 70 U/L Normal 32-126 [place] Comment on above: Performed By: #### C A, CHM7, IPB, MGO, HFP ####[facility] (DEFAULT)[address] [place] [address] ALT [Catalytic activity/Vol] 8 U/L Low 10-52 [place] Comment on above: Performed By: #### C A, CHM7, IPB, MGO, HFP ####[facility] (DEFAULT)[address] [place] [address] AST [Catalytic activity/Vol] 21 U/L Normal 10-39 [place] Comment on above: Performed By: #### C A, CHM7, IPB, MGO, HFP ####[facility] (DEFAULT)[address] [place] [address] Bilirubin [Mass/Vol] 1.9 mg/dL High <1.5 [place] Comment on above: Performed By: #### C A, CHM7, IPB, MGO, HFP ####[facility] (DEFAULT)[address] [place] [address] Bilirubin.indirect [Mass/Vol] 0.4 mg/dL High <0.3 [place] Comment on above: Performed By: #### C A, CHM7, IPB, MGO, HFP ####[facility] (DEFAULT)[address] [place] [address] Protein [Mass/Vol] 6.1 g/dL Low 6.4-8.3 [facility] Comment on above: Performed By: #### NATHANIEL Willis, JO ANN, MGO, HFP ####[facility] (DEFAULT)[address] [place] [address] Albumin [Mass/Vol] 3.7 g/dL 3.5 - 5.0 g/dL [facility] ALP [Catalytic activity/Vol] 70 U/L 32 - 126 U/L [facility] ALT [Catalytic activity/Vol] 8 U/L Low 10 - 52 U/L [facility] AST [Catalytic activity/Vol] 21 U/L 10 - 39 U/L [facility] Bilirubin [Mass/Vol] 1.9 mg/dL High NINF - 1.5 mg/dL [facility] Bilirubin.direct [Mass/Vol] 0.4 mg/dL High NINF - 0.3 mg/dL [facility] Protein [Mass/Vol] 6.1 g/dL Low 6.4 - 8.3 g/dL [facility] MAGNESIUMon 01-16-2024 Magnesium [Mass/Vol] 1.7 mg/dL Normal 1.6-2.6 [place] Comment on above: Performed By: #### NATHANIEL Willis, CASTROB, MGO, HFP ####[facility] (DEFAULT)[address] [place] [address] Magnesium [Mass/Vol] 1.7 mg/dL 1.6 - 2 .6 mg/dL [facility] No Panel Informationon 01-16 Interpretation and review of laboratory results Abnormal [facility] Interpretation and review of laboratory results Normal [facility] PHOSPHATE, INORGANICon 01-16 Phosphorous 4.1 mg/dL Normal 2.2-4.6 [place] Comment on above: Performed By: #### TJ Willis7, IPB, MGO, HFP ####[facility] (DEFAULT)[address] [place] [address] Phosphate [Mass/Vol] 4.1 mg/dL 2.2 - 4 .6 mg/dL [facility] PT,INR,PTTon 01-16-2024 aPTT Coag (Bld) [Time] 29.6 s Normal 24.0-34.3 [place] Comment on above: Performed By: #### P TPTT, HSDDI ####[facility] (DEFAULT)[address] [facility] [place] [address] INR Coag (PPP) [Relative time] 1.2 {INR} High 0.9-1.1 [place] Comment on above: Performed By: #### P TPTT, HSDDI ####[facility] Center (DEFAULT)[address] [facility] [place] [address] PT Coag (PPP) [Time] 14.9 s High 11.9-14.2 [place] Comment on above: Performed By: #### P TPTT, HSDDI ####[facility] (DEFAULT)[address] [facility] [place] [address] aPTT Coag (PPP) [Time] 29.6 s [facility] INR Coag (Bld) [Relative time] 1.2 {INR} High 0.9 - 1.1 [facility] Interpretation and review of laboratory results Abnormal [facility] PT Coag (PPP) [Time] 14.9 s High [facility] TACROLIMUS LEVEL, TROUGH ([place] E DRUG LEVEL)Ordered By: Jimy Castillo on 01-16-2024 Interpretation and review of laboratory results Normal [facility] Tacrolimus (Bld) [Mass/Vol] 5.7 ng/mL Bone Marrow Transplant: 4.0-12.0, Therapeutic: 5.0-15.0 [facility] Method performed is a chemiluminescent microparticle immunoasssay on the [employer] i2000. The range is based on experience at [facility] and users should be aware that target concentrations vary widely depending on concomitant therapy, time post-transplant, and desired degree of immunosuppression. [facility] TACROLIMUS LEV[facility], TROUGH ([place] E DRUG LEVEL)on 01-16-2024 Tacrolimus, Trough 5.7 ng/mL Normal Bone Susana ow Transplant: 4.0-12.0, Therapeutic: 5.0-15.0 [place] Comment on above: Order Comment: Pleas e draw at specified interval PRIOR to dose. Do not hold dose to wait for level. Specimens batched twice per day, (M-F) and once per day weekendsMethod performed is a chemiluminescent microparticle immunoasssay on the [employer] i2000.The range is based on experience at [facility] and users should be aware that target concentrations vary widely depending on concomitant therapy, time post-transplant, and desired degree of immunosuppression. Performed By: #### T ACRO ####[facility] (DEFAULT)[address] [place] [address] US ABDOMEN LIVER DOPPLERon 0 01-16-2024 US ABDOMEN LIVER DOPPLER Normal [place] US.doppler Abdominal vessels on 01-16-2024 IMPRESSION: 1. [...] pleural effusion. Trace right upper quadrant ascites. [facility] Radiology Study observation (narrative) [facility] US.do[facility] Ab[facility] vessels Ordered By: Iona Duran on 01-16-2024 [facility] Work Phone: XR CHEST PA AND LATERAL 2 EWSon 01-16-2024 XR CHEST PA AND LATERAL 2 VIEWS Normal [place] XR Chest PA and Lateralon IMPRESSION: Moderate [...] Normal IMPRESSION IMPRESSION: Moderate right pleural effusion. [facility] Radiology Study observation (narrative) [facility] XR Chest PA and LateralOrder ed By: Daisha Patterson on 01-16-2024 [facility] Work Phone: ALL CBC WITH AUTO DIFFon BASOPHILS ABSOLUTE AUTO 0.0 [facility] Basophils/100 WBC (Bld) 0.5 % 0.2 - 2.0 % [facility] Eosinophils/100 WBC (Bld) 2.8 % 0.9 - 7.0 % [facility] Erythrocyte distribution width (RBC) [Ratio] 13.8 % 11.0 - 15.0 % [facility] Hematocrit (Bld) [Volume fraction] 43.7 % 42.0 - 54.0 % [facility] Hemoglobin (Bld) [Mass/Vol] 14.0 g/dL 14.0 - 18.0 g/dL [facility] IMMATURE GRANULOCYTES ABS AUTO 0.01 [facility] Immature granulocytes/100 WBC (Bld) 0.3 % 0.0 - 0.5 % [facility] LYMPHOCYTES ABSOLUTE AUTO 1.5 [facility] Lymphocytes/100 WBC (Bld) 37.5 % 20.5 - 60.0 % [facility] MCH (RBC) [Entitic mass] 28.4 pg 25.9 - 34.0 pg [facility] MCHC (RBC) [Mass/Vol] 32.0 g/dL 29.9 - 35.2 g/dL [facility] MCV (RBC) [Entitic vol] 88.6 fL 80.0 - 94.0 fL [facility] MONOCYTES ABSOLUTE AUTO 0.5 [facility] Monocytes/100 WBC (Bld) 11.9 % 1.7 - 12.0 % [facility] NEUTROPHILS ABSOLUTE AUTO 1.9 [facility] Neutrophils/100 WBC (Bld) 47.0 % 43.0 - 75.0 % [facility] Platelet mean volume (Bld) [Entitic vol] 10.3 fL 9.5 - 13.5 fL [facility] EO # 0.1 [facility] PLT 180 [facility] RBC 4.93 [facility] WBC 4.0 [facility] ALL CBC WITH AUTO DIFFon BASOPHILS ABSOLUTE AUTO 0.0 [facility] Basophils/100 WBC (Bld) 0.5 % 0.2 - 2.0 % [facility] Eosinophils/100 WBC (Bld) 2.6 % 0.9 - 7.0 % [facility] Erythrocyte distribution width (RBC) [Ratio] 13.5 % 11.0 - 15.0 % [facility] Hematocrit (Bld) [Volume fraction] 43.8 % 42.0 - 54.0 % [facility] Hemoglobin (Bld) [Mass/Vol] 14.0 g/dL 14.0 - 18.0 g/dL [facility] IMMATURE GRANULOCYTES ABS AUTO 0.00 [facility] Immature granulocytes/100 WBC (Bld) 0.0 % 0.0 - 0.5 % [facility] Interpretation and review of laboratory results Abnormal [facility] LYMPHOCYTES ABSOLUTE AUTO 1.8 [facility] Lymphocytes/100 WBC (Bld) 45.2 % 20.5 - 60.0 % [facility] MCH (RBC) [Entitic mass] 27.9 pg 25.9 - 34.0 pg [facility] MCHC (RBC) [Mass/Vol] 32.0 g/dL 29.9 - 35.2 g/dL [facility] MCV (RBC) [Entitic vol] 87.4 fL 80.0 - 94.0 fL [facility] MONOCYTES ABSOLUTE AUTO 0.4 [facility] Monocytes/100 WBC (Bld) 9.6 % 1.7 - 12.0 % [facility] NEUTROPHILS ABSOLUTE AUTO 1.6 [facility] Neutrophils/100 WBC (Bld) 42.1 % Low 43.0 - 75.0 % [facility] Platelet mean volume (Bld) [Entitic vol] 9.8 fL 9.5 - 13.5 fL [facility] TBH EO # 0.1 [facility] PLT 180 [facility] TB RBC 5.01 [facility] TB WBC 3.9 Low [facility] CHEM 7 (LYTES,BUN,CREA,GLUC) on 09-11-2023 Anion gap [Moles/Vol] 13 mmol/L Normal 7-17 [place] Comment on above: Performed By: #### NATHANIEL RAMÍREZ ####[facility] (DEFAULT)[address] [place] [id number] Chloride [Moles/Vol] 111 mmol/L High 98-108 [place] Comment on above: Performed By: #### NATHANIEL RAMÍREZ ####[facility] (DEFAULT)[address] [place] [address] CO2 [Moles/Vol] 20 mmol/L Low 21-31 [facility] Comment on above: Performed By: #### NATHANIEL RAMÍREZ ####[facility] (DEFAULT)[address] [place] [address] Creatinine [Mass/Vol] 1.13 mg/dL Normal 0.70-1.30 [place] Comment on above: Performed By: #### Rod BLOOM CHM7 ####[facility] (DEFAULT)[address] [place] [address] GFR/1.73 sq M.predicted among non-blacks MDRD (S/P/Bld) [Vol rate/Area] 78 mL/min/{1.73_m2} Normal >=60 [place] Comment on above: Result Comment: Repo rted eGFR is based on the CKD-EPI 2020 equation using creatinine, age, and sex. Performed By: #### Rod BLOOM CHM7 ####[facility] (DEFAULT)[address] [facility] [place] [address] Glucose [Mass/Vol] 109 mg/dL High 70-99 [facility] Comment on above: Performed By: #### TJ RAMÍREZ7 ####[facility] (DEFAULT)[address] [facility] [place] [address] Osmolality [Osmolality] 295 mosm/kg Normal 278-305 [place] Comment on above: Performed By: #### Rod BLOOM CHM7 ####[facility] (DEFAULT)[address] [place] [address] Potassium [Moles/Vol] 4.3 mmol/L Normal 3.5-5.0 [place] Comment on above: Performed By: #### Rod BLOOM CHM7 ####[facility] (DEFAULT)[address] [place] [address] Sodium [Moles/Vol] 140 mmol/L Normal 135-145 [facility] Comment on above: Performed By: #### Rod BLOOM CHM7 ####[facility] (DEFAULT)[address] [place] [address] Urea nitrogen [Mass/Vol] 16 mg/dL Normal 7-25 [place] Comment on above: Performed By: #### M HELEN BLOOMM7 ####[facility] (DEFAULT)[address] [place] [address] Urea nitrogen/Creatinine [Mass ratio] 14 mg/mg Normal [place] Comment on above: Performed By: #### M HELEN BLOOMM7 ####[facility] (DEFAULT)[address] [place] [address] Anion gap [Moles/Vol] 13 mmol/L 7 - 17 mmol/L [facility] Chloride [Moles/Vol] 111 mmol/L High 98 - 10 8 mmol/L [facility] CO2 [Moles/Vol] 20 mmol/L Low 21 - 31 mmol/L [facility] Creatinine [Mass/Vol] 1.13 mg/dL 0.70 - 1.30 mg/dL [facility] eGFR, CKD-EPI, Male 79 - PINF [facility] Glucose [Mass/Vol] 109 mg/dL High 70 - 99 mg/dL [facility] Interpretation and review of laboratory results Abnormal [facility] Osmolality Calc [Osmolality] 295 [facility] Potassium [Moles/Vol] 4.3 mmol/L 3.5 - 5.0 mmol/L [facility] Sodium [Moles/Vol] 140 mmol/L 135 - 145 mmol/L [facility] Urea nitrogen [Mass/Vol] 16 mg/dL 7 - 25 mg/dL [facility] Urea nitrogen/Creatinine [Mass ratio] 14 mg/mg [facility] GLUCOSE POCon 09-11-2023 Glucose [Mass/Vol] 108 mg/dL High 70 - 99 mg/dL [facility] Interpretation and review of laboratory results Abnormal [facility] POC Sample Type CAPBL [facility] Legionella sp identified Org specific cx Nom (Unsp spec)on 09-11-2023 Bacteria identified Cx Nom (Unsp spec) NO GROWTH DAY 7 OF 7 [facility] MAGNESIUMon 09-11-2023 Magnesium [Mass/Vol] 1.6 mg/dL Normal 1.6-2.6 [place] Comment on above: Performed By: #### M MERLE CHM7 ####[facility] (DEFAULT)[address] [place] [address] Interpretation and review of laboratory results Normal [facility] Magnesium [Mass/Vol] 1.6 mg/dL 1.6 - 2 .6 mg/dL [facility] No Panel Informationon 09-11 [facility] TACROLIMUS LEVEL, TROUGH ([place] E DRUG LEVEL)on 09-11-2023 Interpretation and review of laboratory results Normal [facility] Tacrolimus (Bld) [Mass/Vol] 11.5 ng/mL [facility] Tacrolimus, Trough 11.5 ng/mL Normal Bone Susana ow Transplant: 4.0-12.0, Therapeutic: 5.0-15.0 [place] Comment on above: Order Comment: Pleas e draw at specified interval PRIOR to dose. Do not hold dose to wait for level. Specimens batched twice per day, (M-) and once per day weekendsMethod performed is a chemiluminescent microparticle immunoasssay on the [employer] i2000.The range is based on experience at [facility] and users should be aware that target concentrations vary widely depending on concomitant therapy, time post-transplant, and desired degree of immunosuppression. Performed By: #### T ACRO ####[facility] (DEFAULT)[address] [place] [address] CBC,PLATELETSon 09-10-2023 Hematocrit (Bld) [Volume fraction] 40.0 % Normal 39.6-48.8 [place] Comment on above: Performed By: #### H [facility] ####[facility] (DEFAULT)[address] [place] [address] Hemoglobin (Bld) [Mass/Vol] 12.7 g/dL Low 13.4-16.8 [place] Comment on above: Performed By: #### H EMOGC ####[facility] (DEFAULT)[address] [place] [address] MCV (RBC) [Entitic vol] 86.0 fL Normal 79.0-94.5 [place] Comment on above: Performed By: #### H EMOGC ####[facility] (DEFAULT)[address] [place] [address] Mean Cell Hgb 27.3 pg Normal 26.1-33.3 [place] Comment on above: Performed By: #### H EMOGC ####[facility] (DEFAULT)[address] [place] [place] [address] Mean Cell Hgb Conc 31.8 g/dL Low 31.9-36.5 [facility] Comment on above: Performed By: #### H EMOGC ####[facility] (DEFAULT)[address] [place] [address] Platelet mean volume (Bld) [Entitic vol] 9.5 fL Normal 8.7-12.3 [place] Comment on above: Performed By: #### H EMOGC ####[facility] (DEFAULT)[address] [place] [address] Platelets (Bld) [#/Vol] 225 10*3/uL Normal 146-337 [place] Comment on above: Performed By: #### H EMOGC ####[facility] (DEFAULT)[address] [place] [address] RBC (Bld) [#/Vol] 4.65 10*6/uL Normal 4.38-5.83 [place] Comment on above: Performed By: #### H EMOGC ####[facility] (DEFAULT)[address] [place] [address] RBC Distribution 13.9 % Normal 10.9-14.[address] [facility] Comment on above: Performed By: #### H [facility] ####[facility] (DEFAULT)[address] [place] [address] WBC (Bld) [#/Vol] 6.52 10*3/uL Normal 3.73-10.10 [place] Comment on above: Performed By: #### H [facility] ####[facility] (DEFAULT)[address] [place] [address] Erythrocyte distribution width (RBC) [Ratio] 13.9 % 10.9 - 14.3 % [facility] Hematocrit (Bld) [Volume fraction] 40.0 % 39.6 - 48.8 % [facility] Hemoglobin (Bld) [Mass/Vol] 12.7 g/dL Low 13.4 - 16.8 g/dL [facility] Interpretation and review of laboratory results Abnormal [facility] MCH (RBC) [Entitic mass] 27.3 pg 26.1 - 33.3 pg [facility] MCHC (RBC) [Mass/Vol] 31.8 g/dL Low 31.9 - 36.5 g/dL [facility] MCV (RBC) [Entitic vol] 86.0 fL 79.0 - 94.5 fL [facility] Platelet mean volume (Bld) [Entitic vol] 9.5 fL 8.7 - 12.3 fL [facility] Platelets (Bld) [#/Vol] 225 10*3/uL 146 - 337 K/uL [facility] RBC (Bld) [#/Vol] 4.65 10*6/uL [facility] WBC (Bld) [#/Vol] 6.52 10*3/uL 3.73 - 10. 10 K/uL [facility] CHEM 7 (LYTES,BUN,CREA,GLUC) on 09-10-2023 Anion gap [Moles/Vol] 13 mmol/L Normal 7-17 [place] Comment on above: Performed By: #### M MERLE, CHM7, HFP ####[facility] (DEFAULT)[address] [place] [address] Chloride [Moles/Vol] 111 mmol/L High 98-108 [place] Comment on above: Performed By: #### M NATHANIEL BLOOM, HFP ####[facility] (DEFAULT)[address] [place] [address] CO2 [Moles/Vol] 20 mmol/L Low 21-31 [facility] Comment on above: Performed By: #### M NATHANIEL BLOOM, HFP ####[facility] (DEFAULT)[address] [place] [address] Creatinine [Mass/Vol] 1.27 mg/dL Normal 0.70-1.30 [place] Comment on above: Performed By: #### NATHANIEL RAMÍREZ, HFP ####[facility] (DEFAULT)[address] [place] [address] GFR/1.73 sq M.predicted among non-blacks MDRD (S/P/Bld) [Vol rate/Area] 68 mL/min/{1.73_m2} Normal >=60 [place] Comment on above: Result Comment: Repo rted eGFR is based on the CKD-EPI 2020 equation using creatinine, age, and sex. Performed By: #### M NATHANIEL BLOOM, HFP ####[facility] (DEFAULT)[address] [place] [address] Glucose [Mass/Vol] 100 mg/dL High 70-99 [facility] Comment on above: Performed By: #### NATHANIEL RAMÍREZ, HFP ####[facility] (DEFAULT)[address] [place] [address] Osmolality [Osmolality] 293 mosm/kg Normal 278-305 [place] Comment on above: Performed By: #### Rod BLOOM CHM7, HFP ####[facility] (DEFAULT)[address] [place] [address] Potassium [Moles/Vol] 4.4 mmol/L Normal 3.5-5.0 [place] Comment on above: Performed By: #### NATHANIEL RAMÍREZ, HFP ####[facility] (DEFAULT)[address] [facility] [place] [address] Sodium [Moles/Vol] 140 mmol/L Normal 135-145 [facility] Comment on above: Performed By: #### NATHANIEL RAMÍREZ, HFP ####[facility] (DEFAULT)[address] [place] [address] Urea nitrogen [Mass/Vol] 12 mg/dL Normal 7-25 [place] Comment on above: Performed By: #### NATHANIEL RAMÍREZ, HFP ####[facility] (DEFAULT)[address] [place] [address] Urea nitrogen/Creatinine [Mass ratio] 9 mg/mg Normal [place] Comment on above: Performed By: #### NATHANIEL RAMÍREZ, HFP ####[facility] (DEFAULT)[address] [place] [address] Anion gap [Moles/Vol] 13 mmol/L 7 - 17 mmol/L [facility] Chloride [Moles/Vol] 111 mmol/L High 98 - 10 8 mmol/L [facility] CO2 [Moles/Vol] 20 mmol/L Low 21 - 31 mmol/L [facility] Creatinine [Mass/Vol] 1.27 mg/dL 0.70 - 1.30 mg/dL [facility] eGFR, CKD-EPI, Male 68 - [facility] Glucose [Mass/Vol] 100 mg/dL High 70 - 99 mg/dL [facility] Osmolality Calc [Osmolality] [facility] Potassium [Moles/Vol] 4.4 mmol/L 3.5 - 5.0 mmol/L [facility] Sodium [Moles/Vol] 140 mmol/L 135 - 145 mmol/L [facility] Urea nitrogen [Mass/Vol] 12 mg/dL 7 - 25 mg/dL [facility] Urea nitrogen/Creatinine [Mass ratio] 9 mg/mg [facility] HEPATIC FUNCTION PANELon Albumin [Mass/Vol] 3.3 g/dL Low 3.5-5.0 [facility] Comment on above: Performed By: #### NATHANIEL RAMÍREZ, HFP ####[facility] (DEFAULT)[address] [place] [address] ALP [Catalytic activity/Vol] 143 U/L High 32-126 [place] Comment on above: Performed By: #### NATHANIEL RAMÍREZ, HFP ####[facility] (DEFAULT)[address] [place] [address] ALT [Catalytic activity/Vol] 28 U/L Normal 10-52 [place] Comment on above: Performed By: #### NATHANIEL RAMÍREZ, HFP ####[facility] (DEFAULT)[address] [place] [address] AST [Catalytic activity/Vol] 29 U/L Normal 10-39 [place] Comment on above: Performed By: #### TJ RAMÍREZ7, HFP ####[facility] (DEFAULT)[address] [place] [address] Bilirubin [Mass/Vol] 0.9 mg/dL Normal <1.5 [place] Comment on above: Performed By: #### Rod BLOOM CHM7, HFP ####[facility] (DEFAULT)[address] [place] [address] Bilirubin.indirect [Mass/Vol] 0.2 mg/dL Normal <0.3 [place] Comment on above: Performed By: #### Rod BLOOM CHM7, HFP ####[facility] (DEFAULT)[address] [place] [address] Protein [Mass/Vol] 6.8 g/dL Normal 6.4-8.3 [facility] Comment on above: Performed By: #### TJ RAMÍREZ7, HFP ####[facility] (DEFAULT)[address] [place] [address] Albumin [Mass/Vol] 3.3 g/dL Low 3.5 - 5.0 g/dL [facility] ALP [Catalytic activity/Vol] 143 U/L High 32 - 126 U/L [facility] ALT [Catalytic activity/Vol] 28 U/L 10 - 52 U/L [facility] AST [Catalytic activity/Vol] 29 U/L 10 - 39 U/L [facility] Bilirubin [Mass/Vol] 0.9 mg/dL NINF - 1.5 mg/dL [facility] Bilirubin.direct [Mass/Vol] 0.2 mg/dL NINF - 0.3 mg/dL [facility] Protein [Mass/Vol] 6.8 g/dL 6.4 - 8.3 g/dL [facility] MAGNESIUMon 09-10-2023 Magnesium [Mass/Vol] 1.9 mg/dL Normal 1.6-2.6 [place] Comment on above: Performed By: #### NATHANIEL RAMÍREZ, HFP ####[facility] (DEFAULT)[address] [place] [address] Interpretation and review of laboratory results Normal [facility] Magnesium [Mass/Vol] 1.9 mg/dL 1.6 - 2 .6 mg/dL [facility] No Panel Informationon 09-10 Interpretation and review of laboratory results Abnormal [facility] TACROLIMUS LEVEL, TROUGH ([place] E DRUG LEVEL)Ordered By: Jimy Castillo on 09-10-2023 Interpretation and review of laboratory results Normal [facility] Tacrolimus (Bld) [Mass/Vol] 11.8 ng/mL [facility] TACROLIMUS LEVEL, TROUGH ([place] E DRUG LEVEL)on 09-10-2023 Tacrolimus, Trough 11.8 ng/mL Normal Bone Susana ow Transplant: 4.0-12.0, Therapeutic: 5.0-15.0 [place] Comment on above: Order Comment: Samrajoan colt draw at specified interval PRIOR to dose. Do not hold dose to wait for level. Specimens batched twice per day, (M-F) and once per day weekendsMethod performed is a chemiluminescent microparticle immunoasssay on the [employer] i2000.The range is based on experience at [facility] and users should be aware that target concentrations vary widely depending on concomitant therapy, time post-transplant, and desired degree of immunosuppression. Performed By: #### T ACRO ####[facility] (DEFAULT)[address] [place] [address] CHEM 7 (LYTES,BUN,CREA,GLUC) on 09-09-2023 Anion gap [Moles/Vol] 14 mmol/L Normal 7-17 [place] Comment on above: Performed By: #### JO ANN RAMÍREZ CHM7 ####[facility] (DEFAULT)[address] [place] [address] Chloride [Moles/Vol] 113 mmol/L High 98-108 [place] Comment on above: Performed By: #### JO ANN RAMÍREZ CHM7 ####[facility] (DEFAULT)[address] [place] [address] CO2 [Moles/Vol] 18 mmol/L Low 21-31 [facility] Comment on above: Performed By: #### JO ANN RAMÍREZ CHM7 ####[facility] (DEFAULT)[address] [facility] [place] [address] Creatinine [Mass/Vol] 1.03 mg/dL Normal 0.70-1.30 [place] Comment on above: Performed By: #### JO ANN RAMÍREZ CHM7 ####[facility] (DEFAULT)[address] [facility] [place] [address] GFR/1.73 sq M.predicted among non-blacks MDRD (S/P/Bld) [Vol rate/Area] 87 mL/min/{1.73_m2} Normal >=60 [place] Comment on above: Result Comment: Repo rted eGFR is based on the CKD-EPI 2020 equation using creatinine, age, and sex. Performed By: #### JO ANN RAMÍREZ CHM7 ####[facility] (DEFAULT)[address] [place] [address] Glucose [Mass/Vol] 106 mg/dL High 70-99 [facility] Comment on above: Performed By: #### JO ANN RAMÍREZ, CHM7 ####[facility] (DEFAULT)[address] [place] [address] Osmolality [Osmolality] 294 mosm/kg Normal 278-305 [place] Comment on above: Performed By: #### JO ANN RAMÍREZ CHM7 ####[facility] (DEFAULT)[address] [place] [address] Potassium [Moles/Vol] 4.0 mmol/L Normal 3.5-5.0 [place] Comment on above: Performed By: #### JO ANN RAMÍREZ CHM7 ####[facility] (DEFAULT)[address] [place] [address] Sodium [Moles/Vol] 141 mmol/L Normal 135-145 [facility] Comment on above: Performed By: #### JO ANN RAMÍREZ, CHM7 ####[facility] (DEFAULT)[address] [place] [address] Urea nitrogen [Mass/Vol] 10 mg/dL Normal 7-25 [place] Comment on above: Performed By: #### JO ANN RAMÍREZ, CHM7 ####[facility] (DEFAULT)[address] [place] [address] Urea nitrogen/Creatinine [Mass ratio] 10 mg/mg Normal [place] Comment on above: Performed By: #### JO ANN RAMÍREZ, CHM7 ####[facility] [facility] (DEFAULT)[address] [place] [address] Anion gap [Moles/Vol] 14 mmol/L 7 - 17 mmol/L [facility] Chloride [Moles/Vol] 113 mmol/L High 98 - 10 8 mmol/L [facility] CO2 [Moles/Vol] 18 mmol/L Low 21 - 31 mmol/L [facility] Creatinine [Mass/Vol] 1.03 mg/dL 0.70 - 1.30 mg/dL [facility] eGFR, CKD-EPI, Male 87 - PINF [facility] Glucose [Mass/Vol] 106 mg/dL High 70 - 99 mg/dL [facility] Interpretation and review of laboratory results Abnormal [facility] Osmolality Calc [Osmolality] 294 [facility] Potassium [Moles/Vol] 4.0 mmol/L 3.5 - 5.0 mmol/L [facility] Sodium [Moles/Vol] 141 mmol/L 135 - 145 mmol/L [facility] Urea nitrogen [Mass/Vol] 10 mg/dL 7 - 25 mg/dL [facility] Urea nitrogen/Creatinine [Mass ratio] 10 mg/mg [facility] MAGNESIUMon 09-09-2023 Magnesium [Mass/Vol] 1.6 mg/dL Normal 1.6-2.6 [place] Comment on above: Performed By: #### JO ANN RAMÍREZ CHM7 ####[facility] (DEFAULT)[address] [place] [address] Magnesium [Mass/Vol] 1.6 mg/dL 1.6 - 2 .6 mg/dL [facility] No Panel Informationon 09-09 Interpretation and review of laboratory results Normal [facility] PHOSPHATE, INORGANICon 09-09 Phosphorous 3.8 mg/dL Normal 2.2-4.6 [place] Comment on above: Performed By: #### JO ANN RAMÍREZ CHM7 ####[facility] (DEFAULT)[address] [place] [address] Phosphate [Mass/Vol] 3.8 mg/dL 2.2 - 4 .6 mg/dL [facility] TACROLIMUS LEVEL, TROUGH ([place] E DRUG LEVEL)on 09-09-2023 Interpretation and review of laboratory results Normal [facility] Tacrolimus (Bld) [Mass/Vol] 9.2 ng/mL [facility] Tacrolimus, Trough 9.2 ng/mL Normal [facility] ow Transplant: 4.0-12.0, Therapeutic: 5.0-15.0 [place] Comment on above: Order Comment: Pleas e draw at specified interval PRIOR to dose. Do not hold dose to wait for level. Specimens batched twice per day, (M-F) and once per day weekendsMethod performed is a chemiluminescent microparticle immunoasssay on the [employer] i2000.The range is based on experience at [facility] and users should be aware that target concentrations vary widely depending on concomitant therapy, time post-transplant, and desired degree of immunosuppression. Performed By: #### T ACRO ####[facility] (DEFAULT)[address] [place] [address] CBC,PLATELETSon 09-08-2023 Hematocrit (Bld) [Volume fraction] 36.1 % Low 39.6-48.8 [place] Comment on above: Performed By: #### H EMO ####[facility] (DEFAULT)[address] [place] [address] Hemoglobin (Bld) [Mass/Vol] 11.6 g/dL Low 13.4-16.8 [place] Comment on above: Performed By: #### H [facility] ####[facility] (DEFAULT)[address] [place] [address] MCV (RBC) [Entitic vol] 85.1 fL Normal 79.0-94.5 [place] Comment on above: Performed By: #### H EMO ####[facility] (DEFAULT)[address] [place] [address] Mean Cell Hgb 27.4 pg Normal 26.1-33.3 [place] Comment on above: Performed By: #### H EMOGC ####[facility] (DEFAULT)[address] [place] [address] Mean Cell Hgb Conc 32.1 g/dL Normal 31.9-36.5 [facility] Comment on above: Performed By: #### H EMOGC ####[facility] (DEFAULT)[address] [place] [address] Platelet mean volume (Bld) [Entitic vol] 9.5 fL Normal 8.7-12.3 [place] Comment on above: Performed By: #### H EMOGC ####[facility] (DEFAULT)[address] [place] [address] Platelets (Bld) [#/Vol] 182 10*3/uL Normal 146-337 [place] Comment on above: Performed By: #### H EMOGC ####[facility] (DEFAULT)[address] [facility] [place] [address] RBC (Bld) [#/Vol] 4.24 10*6/uL Low 4.38-5.83 [place] Comment on above: Performed By: #### H EMOGC ####[facility] (DEFAULT)[address] [place] [address] RBC Distribution 13.6 % Normal 10.9-14.[address] [facility] Comment on above: Performed By: #### H EMOGC ####[facility] (DEFAULT)[address] [place] [address] WBC (Bld) [#/Vol] 4.59 10*3/uL Normal 3.73-10.10 [place] Comment on above: Performed By: #### H EMOGC ####[facility] (DEFAULT)[address] [place] [address] Erythrocyte distribution width (RBC) [Ratio] 13.6 % 10.9 - 14.3 % [facility] Hematocrit (Bld) [Volume fraction] 36.1 % Low 39.6 - 48.8 % [facility] Hemoglobin (Bld) [Mass/Vol] 11.6 g/dL Low 13.4 - 16.8 g/dL [facility] Interpretation and review of laboratory results Abnormal [facility] MCH (RBC) [Entitic mass] 27.4 pg 26.1 - 33.3 pg [facility] MCHC (RBC) [Mass/Vol] 32.1 g/dL 31.9 - 36.5 g/dL [facility] MCV (RBC) [Entitic vol] 85.1 fL 79.0 - 94.5 fL [facility] Platelet mean volume (Bld) [Entitic vol] 9.5 fL 8.7 - 12.3 fL [facility] Platelets (Bld) [#/Vol] 182 10*3/uL 146 - 337 K/uL [facility] RBC (Bld) [#/Vol] 4.24 10*6/uL Low [facility] WBC (Bld) [#/Vol] 4.59 10*3/uL 3.73 - 10. 10 K/uL [facility] CHEM 7 (LYTES,BUN,CREA,GLUC) on 09-08-2023 Anion gap [Moles/Vol] 12 mmol/L Normal 7-17 [place] Comment on above: Performed By: #### M MERLE, IPB, HFP, CHM7 ####[facility] (DEFAULT)[address] [place] [address] Chloride [Moles/Vol] 113 mmol/L High 98-108 [place] Comment on above: Performed By: #### M MERLE, IPB, HFP, CHM7 ####[facility] (DEFAULT)[address] [place] [address] CO2 [Moles/Vol] 21 mmol/L Normal 21-31 [facility] Comment on above: Performed By: #### M MERLE, IPB, HFP, CHM7 ####[facility] (DEFAULT)[address] [place] [address] Creatinine [Mass/Vol] 1.14 mg/dL Normal 0.70-1.30 [place] Comment on above: Performed By: #### M GO, IPB, HFP, CHM7 ####[facility] (DEFAULT)[address] [facility] [place] [address] GFR/1.73 sq M.predicted among non-blacks MDRD (S/P/Bld) [Vol rate/Area] 77 mL/min/{1.73_m2} Normal >=60 [place] Comment on above: Result Comment: Repo rted eGFR is based on the CKD-EPI 2020 equation using creatinine, age, and sex. Performed By: #### M MERLE, IPB, HFP, CHM7 ####[facility] (DEFAULT)[address] [facility] [place] [address] Glucose [Mass/Vol] 107 mg/dL High 70-99 [facility] Comment on above: Performed By: #### M MERLE, IPB, HFP, CHM7 ####[facility] (DEFAULT)[address] [facility] [place] [address] Osmolality [Osmolality] 296 mosm/kg Normal 278-305 [place] Comment on above: Performed By: #### M GO, IPB, HFP, CHM7 ####[facility] (DEFAULT)[address] [facility] [place] [address] Potassium [Moles/Vol] 3.9 mmol/L Normal 3.5-5.0 [place] Comment on above: Performed By: #### M GO, IPB, HFP, CHM7 ####[facility] (DEFAULT)[address] [facility] [place] [address] Sodium [Moles/Vol] 142 mmol/L Normal 135-145 [facility] Comment on above: Performed By: #### M MERLE, IPB, HFP, CHM7 ####[facility] (DEFAULT)[address] [place] [address] Urea nitrogen [Mass/Vol] 11 mg/dL Normal 7-25 [place] Comment on above: Performed By: #### M MERLE, IPB, HFP, CHM7 ####[facility] (DEFAULT)[address] [place] [address] Urea nitrogen/Creatinine [Mass ratio] 10 mg/mg Normal [place] Comment on above: Performed By: #### M MERLE, IPB, HFP, CHM7 ####[facility] (DEFAULT)[address] [place] [address] Anion gap [Moles/Vol] 12 mmol/L 7 - 17 mmol/L [facility] Chloride [Moles/Vol] 113 mmol/L High 98 - 10 8 mmol/L [facility] CO2 [Moles/Vol] 21 mmol/L 21 - 31 mmol/L [facility] Creatinine [Mass/Vol] 1.14 mg/dL 0.70 - 1.30 mg/dL [facility] eGFR, CKD-EPI, Male 77 - PINF [facility] Glucose [Mass/Vol] 107 mg/dL High 70 - 99 mg/dL [facility] Osmolality [facility]c [[facility]olality] [facility] Potassium [Moles/Vol] 3.9 mmol/L 3.5 - 5.0 mmol/L [facility] Sodium [Moles/Vol] 142 mmol/L 135 - 145 mmol/L [facility] Urea nitrogen [Mass/Vol] 11 mg/dL 7 - 25 mg/dL [facility] Urea nitrogen/Creatinine [Mass ratio] 10 mg/mg [facility] HEPATIC FUNCTION PANELon Albumin [Mass/Vol] 2.9 g/dL Low 3.5-5.0 [facility] Comment on above: Performed By: #### M GO, IPB, HFP, CHM7 ####[facility] (DEFAULT)[address] [place] [address] ALP [Catalytic activity/Vol] 133 U/L High 32-126 [place] Comment on above: Performed By: #### M GO, IPB, HFP, CHM7 ####[facility] (DEFAULT)[address] [place] [address] ALT [Catalytic activity/Vol] 23 U/L Normal 10-52 [place] Comment on above: Performed By: #### M GO, IPB, HFP, CHM7 ####[facility] (DEFAULT)[address] [place] [address] AST [Catalytic activity/Vol] 23 U/L Normal 10-39 [place] Comment on above: Performed By: #### M GO, IPB, HFP, CHM7 ####[facility] (DEFAULT)[address] [place] [address] Bilirubin [Mass/Vol] 0.8 mg/dL Normal <1.5 [place] Comment on above: Performed By: #### M GO, IPB, HFP, CHM7 ####[facility] (DEFAULT)[address] [place] [address] Bilirubin.indirect [Mass/Vol] 0.2 mg/dL Normal <0.3 [place] Comment on above: Performed By: #### M GO, IPB, HFP, CHM7 ####[facility] (DEFAULT)[address] [place] [address] Protein [Mass/Vol] 5.9 g/dL Low 6.4-8.3 [facility] Comment on above: Performed By: #### M GO, IPB, HFP, CHM7 ####[facility] (DEFAULT)[address] [place] [address] Albumin [Mass/Vol] 2.9 g/dL Low 3.5 - 5.0 g/dL [facility] ALP [Catalytic activity/Vol] 133 U/L High 32 - 126 U/L [facility] ALT [Catalytic activity/Vol] 23 U/L 10 - 52 U/L [facility] AST [Catalytic activity/Vol] 23 U/L 10 - 39 U/L [facility] Bilirubin [Mass/Vol] 0.8 mg/dL NINF - 1.5 mg/dL [facility] Bilirubin.direct [Mass/Vol] 0.2 mg/dL NINF - 0.3 mg/dL [facility] Protein [Mass/Vol] 5.9 g/dL Low 6.4 - 8.3 g/dL [facility] MAGNESIUMon 09-08-2023 Magnesium [Mass/Vol] 1.8 mg/dL Normal 1.6-2.6 [place] Comment on above: Performed By: #### M JO ANN BLOOM, HFP, CHM7 ####[facility] (DEFAULT)[address] [place] [address] Interpretation and review of laboratory results Normal [facility] Magnesium [Mass/Vol] 1.8 mg/dL 1.6 - 2 .6 mg/dL [facility] No Panel Informationon 09-08 Interpretation and review of laboratory results Abnormal [facility] PHOSPHATE, INORGANICon 09-08 Interpretation and review of laboratory results Normal [facility] Phosphate [Mass/Vol] 4.1 mg/dL 2.2 - 4 .6 mg/dL [facility] Phosphorous 4.1 mg/dL Normal 2.2-4.6 [place] Comment on above: Performed By: #### M CASTRO BLOOMB, HFP, CHM7 ####[facility] (DEFAULT)[address] [place] [address] TACROLIMUS LEVEL, TROUGH ([place] E DRUG LEVEL)on 09-08-2023 Interpretation and review of laboratory results Normal [facility] Tacrolimus (Bld) [Mass/Vol] 8.5 ng/mL [facility] Tacrolimus, Trough 8.5 ng/mL Normal Bone Susana ow Transplant: 4.0-12.0, Therapeutic: 5.0-15.0 [place] Comment on above: Order Comment: Pleas e draw at specified interval PRIOR to dose. Do not hold dose to wait for level. Specimens batched twice per day, (M-F) and once per day weekendsMethod performed is a chemiluminescent microparticle immunoasssay on the [employer] i2000.The range is based on experience at [facility] and users should be aware that target concentrations vary widely depending on concomitant therapy, time post-transplant, and desired degree of immunosuppression. Performed By: #### T ACRO ####[facility] (DEFAULT)[address] [place] [address] CBC,PLATELETSon 09-07-2023 Hematocrit (Bld) [Volume fraction] 37.1 % Low 39.6-48.8 [place] Comment on above: Performed By: #### H [facility] ####[facility] (DEFAULT)[address] [place] [address] Hemoglobin (Bld) [Mass/Vol] 11.9 g/dL Low 13.4-16.8 [place] Comment on above: Performed By: #### H EMO ####[facility] (DEFAULT)[address] [place] [address] MCV (RBC) [Entitic vol] 86.5 fL Normal 79.0-94.5 [place] Comment on above: Performed By: #### H EMOGC ####[facility] (DEFAULT)[address] [place] [address] Mean Cell Hgb 27.7 pg Normal 26.1-33.3 [place] Comment on above: Performed By: #### H EMO ####[facility] (DEFAULT)[address] [place] [address] Mean Cell Hgb Conc 32.1 g/dL Normal 31.9-36.5 [facility] Comment on above: Performed By: #### H EMO ####[facility] (DEFAULT)[address] [facility] [place] [address] Platelet mean volume (Bld) [Entitic vol] 9.6 fL Normal 8.7-12.3 [place] Comment on above: Performed By: #### H EMO ####[facility] (DEFAULT)[address] [facility] [place] [address] Platelets (Bld) [#/Vol] 176 10*3/uL Normal 146-337 [place] Comment on above: Performed By: #### H EMO ####[facility] (DEFAULT)[address] [place] [address] RBC (Bld) [#/Vol] 4.29 10*6/uL Low 4.38-5.83 [place] Comment on above: Performed By: #### H EMO ####[facility] (DEFAULT)[address] [facility] [place] [address] RBC Distribution 13.5 % Normal 10.9-14.[address] [facility] Comment on above: Performed By: #### H EMOGC ####[facility] (DEFAULT)[address] [place] [address] WBC (Bld) [#/Vol] 4.10 10*3/uL Normal 3.73-10.10 [place] Comment on above: Performed By: #### H EMOGC ####[facility] (DEFAULT)[address] [place] [address] Erythrocyte distribution width (RBC) [Ratio] 13.5 % 10.9 - 14.3 % [facility] Hematocrit (Bld) [Volume fraction] 37.1 % Low 39.6 - 48.8 % [facility] Hemoglobin (Bld) [Mass/Vol] 11.9 g/dL Low 13.4 - 16.8 g/dL [facility] Interpretation and review of laboratory results Abnormal [facility] MCH (RBC) [Entitic mass] 27.7 pg 26.1 - 33.3 pg [facility] MCHC (RBC) [Mass/Vol] 32.1 g/dL 31.9 - 36.5 g/dL [facility] MCV (RBC) [Entitic vol] 86.5 fL 79.0 - 94.5 fL [facility] Platelet mean volume (Bld) [Entitic vol] 9.6 fL 8.7 - 12.3 fL [facility] Platelets (Bld) [#/Vol] 176 10*3/uL 146 - 337 K/uL [facility] RBC (Bld) [#/Vol] 4.29 10*6/uL Low [facility] WBC (Bld) [#/Vol] 4.10 10*3/uL 3.73 - 10. 10 K/uL [facility] CHEM 7 (LYTES,BUN,CREA,GLUC) on 09-07-2023 Anion gap [Moles/Vol] 13 mmol/L Normal 7-17 [place] Comment on above: Performed By: #### C HM7, IPB, MGO, HFP ####[facility] (DEFAULT)[address] [place] [address] Chloride [Moles/Vol] 113 mmol/L High 98-108 [place] Comment on above: Performed By: #### C HM7, IPB, MGO, HFP ####[facility] (DEFAULT)[address] [place] [address] CO2 [Moles/Vol] 19 mmol/L Low 21-31 [facility] Comment on above: Performed By: #### C HM7, IPB, MGO, HFP ####[facility] (DEFAULT)[address] [place] [address] Creatinine [Mass/Vol] 1.22 mg/dL Normal 0.70-1.30 [place] Comment on above: Performed By: #### C JASMYNE, CASTROB, MGO, HFP ####[facility] (DEFAULT)[address] [place] [address] GFR/1.73 sq M.predicted among non-blacks MDRD (S/P/Bld) [Vol rate/Area] 71 mL/min/{1.73_m2} Normal >=60 [place] Comment on above: Result Comment: Repo rted eGFR is based on the CKD-EPI 2020 equation using creatinine, age, and sex. Performed By: #### C HM7, IPB, MGO, HFP ####[facility] (DEFAULT)[address] [facility] [place] [address] Glucose [Mass/Vol] 107 mg/dL High 70-99 [facility] Comment on above: Performed By: #### C HM7, IPB, MGO, HFP ####[facility] (DEFAULT)[address] [facility] [place] [address] Osmolality [Osmolality] 295 mosm/kg Normal 278-305 [place] Comment on above: Performed By: #### Chinedu HM7, IPB, MGO, HFP ####[facility] (DEFAULT)[address] [place] [address] Potassium [Moles/Vol] 3.9 mmol/L Normal 3.5-5.0 [place] Comment on above: Performed By: #### C HM7, IPB, MGO, HFP ####[facility] (DEFAULT)[address] [place] [address] Sodium [Moles/Vol] 141 mmol/L Normal 135-145 [facility] Comment on above: Performed By: #### Chinedu HM7, IPB, MGO, HFP ####[facility] (DEFAULT)[address] [facility] [place] [address] Urea nitrogen [Mass/Vol] 13 mg/dL Normal 7-25 [place] Comment on above: Performed By: #### C HM7, IPB, MGO, HFP ####[facility] (DEFAULT)[address] [place] [address] Urea nitrogen/Creatinine [Mass ratio] 11 mg/mg Normal [place] Comment on above: Performed By: #### C HM7, IPB, MGO, HFP ####[facility] (DEFAULT)[address] [place] [address] Anion gap [Moles/Vol] 13 mmol/L 7 - 17 mmol/L [facility] Chloride [Moles/Vol] 113 mmol/L High 98 - 10 8 mmol/L [facility] CO2 [Moles/Vol] 19 mmol/L Low 21 - 31 mmol/L [facility] Creatinine [Mass/Vol] 1.22 mg/dL 0.70 - 1.30 mg/dL [facility] eGFR, CKD-EPI, Male 71 - PINF [facility] Glucose [Mass/Vol] 107 mg/dL High 70 - 99 mg/dL [facility] Osmolality Calc [Osmolality] 295 [facility] Potassium [Moles/Vol] 3.9 mmol/L 3.5 - 5.0 mmol/L [facility] Sodium [Moles/Vol] 141 mmol/L 135 - 145 mmol/L [facility] Urea nitrogen [Mass/Vol] 13 mg/dL 7 - 25 mg/dL [facility] Urea nitrogen/Creatinine [Mass ratio] 11 mg/mg [facility] HEPATIC FUNCTION PANELon Albumin [Mass/Vol] 2.9 g/dL Low 3.5-5.0 [facility] Comment on above: Performed By: #### C HM7, IPB, MGO, HFP ####[facility] (DEFAULT)[address] [place] [address] ALP [Catalytic activity/Vol] 111 U/L Normal 32-126 [place] Comment on above: Performed By: #### C HM7, IPB, MGO, HFP ####[facility] (DEFAULT)[address] [place] [address] ALT [Catalytic activity/Vol] 18 U/L Normal 10-52 [place] Comment on above: Performed By: #### C HM7, IPB, MGO, HFP ####[facility] (DEFAULT)[address] [place] [address] AST [Catalytic activity/Vol] 23 U/L Normal 10-39 [place] Comment on above: Performed By: #### C HM7, IPB, MGO, HFP ####[facility] (DEFAULT)[address] [place] [address] Bilirubin [Mass/Vol] 0.8 mg/dL Normal <1.5 [place] Comment on above: Performed By: #### C HM7, IPB, MGO, HFP ####[facility] (DEFAULT)[address] [place] [address] Bilirubin.indirect [Mass/Vol] 0.3 mg/dL High <0.3 [place] Comment on above: Performed By: #### C HM7, IPB, MGO, HFP ####[facility] (DEFAULT)[address] [place] [address] Protein [Mass/Vol] 6.0 g/dL Low 6.4-8.3 [facility] Comment on above: Performed By: #### C HM7, IPB, MGO, HFP ####[facility] (DEFAULT)[address] [place] [address] Albumin [Mass/Vol] 2.9 g/dL Low 3.5 - 5.0 g/dL [facility] ALP [Catalytic activity/Vol] 111 U/L 32 - 126 U/L [facility] ALT [Catalytic activity/Vol] 18 U/L 10 - 52 U/L [facility] AST [Catalytic activity/Vol] 23 U/L 10 - 39 U/L [facility] Bilirubin [Mass/Vol] 0.8 mg/dL NINF - 1.5 mg/dL [facility] Bilirubin.direct [Mass/Vol] 0.3 mg/dL High NINF - 0.3 mg/dL [facility] Protein [Mass/Vol] 6.0 g/dL Low 6.4 - 8.3 g/dL [facility] MAGNESIUMon 09-07-2023 Magnesium [Mass/Vol] 1.7 mg/dL Normal 1.6-2.6 [place] Comment on above: Performed By: #### C HM7, IPB, MGO, HFP ####[facility] (DEFAULT)[address] [place] [address] Interpretation and review of laboratory results Normal [facility] Magnesium [Mass/Vol] 1.7 mg/dL 1.6 - 2 .6 mg/dL [facility] No Panel Informationon 09-07 Interpretation and review of laboratory results Abnormal [facility] PHOSPHATE, INORGANICon 09-07 Phosphorous 4.4 mg/dL Normal 2.2-4.6 [place] Comment on above: Performed By: #### C HM7, IPB, MGO, HFP ####[facility] (DEFAULT)[address] [place] [address] Interpretation and review of laboratory results Normal [facility] Phosphate [Mass/Vol] 4.4 mg/dL 2.2 - 4 .6 mg/dL [facility] TACROLIMUS LEVEL, TROUGH ([place] E DRUG LEVEL)Ordered By: Elizabeth Maldonado on 09-07-2023 Interpretation and review of laboratory results Normal [facility] Tacrolimus (Bld) [Mass/Vol] 7.8 ng/mL [facility] TACROLIMUS LEVEL, TROUGH ([place] E DRUG LEVEL)on 09-07-2023 Tacrolimus, Trough 7.8 ng/mL Normal Bone Susana ow Transplant: 4.0-12.0, Therapeutic: 5.0-15.0 [place] Comment on above: Order Comment: Dilan gregory draw at specified interval PRIOR to dose. Do not hold dose to wait for level. Specimens batched twice per day, (M-F) and once per day weekendsMethod performed is a chemiluminescent microparticle immunoasssay on the [employer] i2000.The range is based on experience at [facility] and users should be aware that target concentrations vary widely depending on concomitant therapy, time post-transplant, and desired degree of immunosuppression. Performed By: #### T ACRO ####[facility] (DEFAULT)[address] [place] [address], [place] [address] CBC,PLATELETSon 09-06-2023 Hematocrit (Bld) [Volume fraction] 38.4 % Low 39.6-48.8 [place] Comment on above: Performed By: #### H [facility] ####[facility] (DEFAULT)[address] [place] [address] Hemoglobin (Bld) [Mass/Vol] 11.9 g/dL Low 13.4-16.8 [place] Comment on above: Performed By: #### H EMOGC ####[facility] (DEFAULT)[address] [place] [address] MCV (RBC) [Entitic vol] 85.9 fL Normal 79.0-94.5 [place] Comment on above: Performed By: #### H [facility] ####[facility] (DEFAULT)[address] [place] [address] Mean Cell Hgb 26.6 pg Normal 26.1-33.3 [place] Comment on above: Performed By: #### H EMOGC ####[facility] (DEFAULT)[address] [place] [address] Mean Cell Hgb Conc 31.0 g/dL Low 31.9-36.5 [facility] Comment on above: Performed By: #### H EMO ####[facility] (DEFAULT)[address] [place] [address] Platelet mean volume (Bld) [Entitic vol] 9.7 fL Normal 8.7-12.3 [place] Comment on above: Performed By: #### H EMO ####[facility] (DEFAULT)[address] [place] [address] Platelets (Bld) [#/Vol] 181 10*3/uL Normal 146-337 [place] Comment on above: Performed By: #### H EMO ####[facility] (DEFAULT)[address] [place] [address] RBC (Bld) [#/Vol] 4.47 10*6/uL Normal 4.38-5.83 [place] Comment on above: Performed By: #### H EMO ####[facility] (DEFAULT)[address] [place] [address] RBC Distribution 13.4 % Normal 10.9-14.[address] [facility] Comment on above: Performed By: #### H EMO ####[facility] (DEFAULT)[address] [place] [address] WBC (Bld) [#/Vol] 4.41 10*3/uL Normal 3.73-10.10 [place] Comment on above: Performed By: #### H EMO ####[facility] (DEFAULT)[address] [place] [address] Erythrocyte distribution width (RBC) [Ratio] 13.4 % 10.9 - 14.3 % [facility] Hematocrit (Bld) [Volume fraction] 38.4 % Low 39.6 - 48.8 % [facility] Hemoglobin (Bld) [Mass/Vol] 11.9 g/dL Low 13.4 - 16.8 g/dL [facility] Interpretation and review of laboratory results Abnormal [facility] MCH (RBC) [Entitic mass] 26.6 pg 26.1 - 33.3 pg [facility] MCHC (RBC) [Mass/Vol] 31.0 g/dL Low 31.9 - 36.5 g/dL [facility] MCV (RBC) [Entitic vol] 85.9 fL 79.0 - 94.5 fL [facility] Platelet mean volume (Bld) [Entitic vol] 9.7 fL 8.7 - 12.3 fL [facility] Platelets (Bld) [#/Vol] 181 10*3/uL 146 - 337 K/uL [facility] RBC (Bld) [#/Vol] 4.47 10*6/uL [facility] WBC (Bld) [#/Vol] 4.41 10*3/uL 3.73 - 10. 10 K/uL [facility] CHEM 7 (LYTES,BUN,CREA,GLUC) on 09-06-2023 Anion gap [Moles/Vol] 14 mmol/L 7 - 17 mmol/L [facility] Chloride [Moles/Vol] 109 mmol/L High 98 - 10 8 mmol/L [facility] CO2 [Moles/Vol] 19 mmol/L Low 21 - 31 mmol/L [facility] Creatinine [Mass/Vol] 1.26 mg/dL 0.70 - 1.30 mg/dL [facility] eGFR, CKD-EPI, Male 69 - PINF [facility] Glucose [Mass/Vol] 114 mg/dL High 70 - 99 mg/dL [facility] Osmolality Calc [Osmolality] 291 [facility] Potassium [Moles/Vol] 4.1 mmol/L 3.5 - 5.0 mmol/L [facility] Sodium [Moles/Vol] 138 mmol/L 135 - 145 mmol/L [facility] Urea nitrogen [Mass/Vol] 16 mg/dL 7 - 25 mg/dL [facility] Urea nitrogen/Creatinine [Mass ratio] 13 mg/mg [facility] Anion gap [Moles/Vol] 14 mmol/L Normal 7-17 [place] Comment on above: Performed By: #### NATHANIEL RAMÍREZ, HFP ####[facility] (DEFAULT)[address] [place] [address] Chloride [Moles/Vol] 109 mmol/L High 98-108 [place] Comment on above: Performed By: #### NATHANIEL RAMÍREZ, HFP ####[facility] (DEFAULT)[address] [place] [address] CO2 [Moles/Vol] 19 mmol/L Low 21-31 [facility] Comment on above: Performed By: #### NATHANIEL RAMÍREZ, HFP ####[facility] (DEFAULT)[address] [place] [address] Creatinine [Mass/Vol] 1.26 mg/dL Normal 0.70-1.30 [place] Comment on above: Performed By: #### NATHANIEL RAMÍREZ, HFP ####[facility] (DEFAULT)[address] [facility] [place] [address] GFR/1.73 sq M.predicted among non-blacks MDRD (S/P/Bld) [Vol rate/Area] 69 mL/min/{1.73_m2} Normal >=60 [place] Comment on above: Result Comment: Repo rted eGFR is based on the CKD-EPI 2020 equation using creatinine, age, and sex. Performed By: #### NATHANIEL RAMÍREZ, HFP ####[facility] (DEFAULT)[address] [facility] [place] [address] Glucose [Mass/Vol] 114 mg/dL High 70-99 [facility] Comment on above: Performed By: #### NATHANIEL RAMÍREZ, HFP ####[facility] (DEFAULT)[address] [facility] [place] [address] Osmolality [Osmolality] 291 mosm/kg Normal 278-305 [place] Comment on above: Performed By: #### M TJ BLOOM7, HFP ####[facility] (DEFAULT)[address] [place] [address] Potassium [Moles/Vol] 4.1 mmol/L Normal 3.5-5.0 [place] Comment on above: Performed By: #### Rod BLOOM CHM7, HFP ####[facility] (DEFAULT)[address] [place] [address] Sodium [Moles/Vol] 138 mmol/L Normal 135-145 [facility] Comment on above: Performed By: #### NATHANIEL RAMÍREZ, HFP ####[facility] (DEFAULT)[address] [place] [address] Urea nitrogen [Mass/Vol] 16 mg/dL Normal 7-25 [place] Comment on above: Performed By: #### NATHANIEL RAMÍREZ, HFP ####[facility] (DEFAULT)[address] [place] [address] Urea nitrogen/Creatinine [Mass ratio] 13 mg/mg Normal [place] Comment on above: Performed By: #### NATHANIEL RAMÍREZ, HFP ####[facility] (DEFAULT)[address] [place] [address] HEPATIC FUNCTION PANELon Albumin [Mass/Vol] 3.0 g/dL Low 3.5 - 5.0 g/dL [facility] ALP [Catalytic activity/Vol] 115 U/L 32 - 126 U/L [facility] ALT [Catalytic activity/Vol] 25 U/L 10 - 52 U/L [facility] AST [Catalytic activity/Vol] 31 U/L 10 - 39 U/L [facility] Bilirubin [Mass/Vol] 1.0 mg/dL NINF - 1.5 mg/dL [facility] Bilirubin.direct [Mass/Vol] 0.3 mg/dL High NINF - 0.3 mg/dL [facility] Protein [Mass/Vol] 6.3 g/dL Low 6.4 - 8.3 g/dL [facility] Albumin [Mass/Vol] 3.0 g/dL Low 3.5-5.0 [facility] Comment on above: Performed By: #### M MERLE CHM7, HFP ####[facility] (DEFAULT)[address] [place] [address] ALP [Catalytic activity/Vol] 115 U/L Normal 32-126 [place] Comment on above: Performed By: #### M MERLE CHM7, HFP ####[facility] (DEFAULT)[address] [place] [address] ALT [Catalytic activity/Vol] 25 U/L Normal 10-52 [place] Comment on above: Performed By: #### Rod BLOOM CHM7, HFP ####[facility] (DEFAULT)[address] [place] [address] AST [Catalytic activity/Vol] 31 U/L Normal 10-39 [place] Comment on above: Performed By: #### M MERLE CHM7, HFP ####[facility] (DEFAULT)[address] [place] [address] Bilirubin [Mass/Vol] 1.0 mg/dL Normal <1.5 [place] Comment on above: Performed By: #### M MERLE CHM7, HFP ####[facility] (DEFAULT)[address] [place] [address] Bilirubin.indirect [Mass/Vol] 0.3 mg/dL High <0.3 [place] Comment on above: Performed By: #### M MERLE CHM7, HFP ####[facility] (DEFAULT)[address] [place] [address] Protein [Mass/Vol] 6.3 g/dL Low 6.4-8.3 [facility] Comment on above: Performed By: #### M MERLE CHM7, HFP ####[facility] (DEFAULT)[address] [place] [address] MAGNESIUMon 09-06-2023 Interpretation and review of laboratory results Normal [facility] Magnesium [Mass/Vol] 2.0 mg/dL 1.6 - 2 .6 mg/dL [facility] Magnesium [Mass/Vol] 2.0 mg/dL Normal 1.6-2.6 [place] Comment on above: Performed By: #### M GO, CHM7, HFP ####[facility] (DEFAULT)[address] [place] [address] No Panel Informationon 09-06 Interpretation and review of laboratory results Abnormal [facility] TACROLIMUS LEVEL, TROUGH ([place] E DRUG LEVEL)on 09-06-2023 Interpretation and review of laboratory results Normal [facility] Tacrolimus (Bld) [Mass/Vol] 6.7 ng/mL [facility] Tacrolimus, Trough 6.7 ng/mL Normal Bone Susana ow Transplant: 4.0-12.0, Therapeutic: 5.0-15.0 [place] Comment on above: Order Comment: Pleas e draw at specified interval PRIOR to dose. Do not hold dose to wait for level. Specimens batched twice per day, (M-F) and once per day weekendsMethod performed is a chemiluminescent microparticle immunoasssay on the [employer] i2000.The range is based on experience at [facility] and users should be aware that target concentrations vary widely depending on concomitant therapy, time post-transplant, and desired degree of immunosuppression. Performed By: #### T ACRO ####[facility] (DEFAULT)[address] [place] [address] CBC,PLATELETSon 09-05-2023 Hematocrit (Bld) [Volume fraction] 35.6 % Low 39.6-48.8 [place] Comment on above: Performed By: #### H EMOGC ####[facility] (DEFAULT)[address] [place] [address] Hemoglobin (Bld) [Mass/Vol] 11.4 g/dL Low 13.4-16.8 [place] Comment on above: Performed By: #### H EMOGC ####[facility] (DEFAULT)[address] [facility] [place] [address] MCV (RBC) [Entitic vol] 86.0 fL Normal 79.0-94.5 [place] Comment on above: Performed By: #### H EMOGC ####[facility] (DEFAULT)[address] [facility] [place] [address] Mean Cell Hgb 27.5 pg Normal 26.1-33.3 [place] Comment on above: Performed By: #### H EMOGC ####[facility] (DEFAULT)[address] [facility] [place] [address] Mean Cell Hgb Conc 32.0 g/dL Normal 31.9-36.5 [facility] Comment on above: Performed By: #### H EMOGC ####[facility] (DEFAULT)[address] [facility] [place] [address] Platelet mean volume (Bld) [Entitic vol] 10.0 fL Normal 8.7-12.3 [place] Comment on above: Performed By: #### H EMOGC ####[facility] (DEFAULT)[address] [facility] [place] [address] Platelets (Bld) [#/Vol] 170 10*3/uL Normal 146-337 [place] Comment on above: Performed By: #### H EMOGC ####[facility] (DEFAULT)[address] [facility] [place] [address] RBC (Bld) [#/Vol] 4.14 10*6/uL Low 4.38-5.83 [place] Comment on above: Performed By: #### H EMOGC ####[facility] (DEFAULT)[address] [facility] [place] [address] RBC Distribution 13.5 % Normal 10.9-14.[address] [facility] Comment on above: Performed By: #### H [facility] ####[facility] (DEFAULT)[address] [place] [address] WBC (Bld) [#/Vol] 4.24 10*3/uL Normal 3.73-10.10 [place] Comment on above: Performed By: #### H [facility] ####[facility] (DEFAULT)[address] [place] [address] Erythrocyte distribution width (RBC) [Ratio] 13.5 % 10.9 - 14.3 % [facility] Hematocrit (Bld) [Volume fraction] 35.6 % Low 39.6 - 48.8 % [facility] Hemoglobin (Bld) [Mass/Vol] 11.4 g/dL Low 13.4 - 16.8 g/dL [facility] Interpretation and review of laboratory results Abnormal [facility] MCH (RBC) [Entitic mass] 27.5 pg 26.1 - 33.3 pg [facility] MCHC (RBC) [Mass/Vol] 32.0 g/dL 31.9 - 36.5 g/dL [facility] MCV (RBC) [Entitic vol] 86.0 fL 79.0 - 94.5 fL [facility] Platelet mean volume (Bld) [Entitic vol] 10.0 fL 8.7 - 12.3 fL [facility] Platelets (Bld) [#/Vol] 170 10*3/uL 146 - 337 K/uL [facility] RBC (Bld) [#/Vol] 4.14 10*6/uL Low [facility] WBC (Bld) [#/Vol] 4.24 10*3/uL 3.73 - 10. 10 K/uL [facility] CHEM 7 (LYTES,BUN,CREA,GLUC) on 09-05-2023 Anion gap [Moles/Vol] 12 mmol/L Normal 7-17 [place] Comment on above: Performed By: #### H FP, CHM7, MGO ####[facility] (DEFAULT)[address] [place] [address] Chloride [Moles/Vol] 107 mmol/L Normal 98-108 [place] Comment on above: Performed By: #### H FP, CHM7, MGO ####[facility] (DEFAULT)[address] [facility] [place] [address] CO2 [Moles/Vol] 20 mmol/L Low 21-31 [facility] Comment on above: Performed By: #### H FP, CHM7, MGO ####[facility] (DEFAULT)[address] [facility] [place] [address] Creatinine [Mass/Vol] 1.43 mg/dL High 0.70-1.30 [place] Comment on above: Performed By: #### H FP, CHM7, MGO ####[facility] (DEFAULT)[address] [place] [address] GFR/1.73 sq M.predicted among non-blacks MDRD (S/P/Bld) [Vol rate/Area] 59 mL/min/{1.73_m2} Low >=60 [place] Comment on above: Result Comment: Repo rted eGFR is based on the CKD-EPI 2020 equation using creatinine, age, and sex. Performed By: #### H FP, CHM7, MGO ####[facility] (DEFAULT)[address] [facility] [place] [address] Glucose [Mass/Vol] 111 mg/dL High 70-99 [facility] Comment on above: Performed By: #### H FP, CHM7, MGO ####[facility] (DEFAULT)[address] [facility] [place] [address] Osmolality [Osmolality] 286 mosm/kg Normal 278-305 [place] Comment on above: Performed By: #### H FP, CHM7, MGO ####[facility] (DEFAULT)[address] [place] [address] Potassium [Moles/Vol] 4.2 mmol/L Normal 3.5-5.0 [place] Comment on above: Performed By: #### H FP, CHM7, MGO ####[facility] (DEFAULT)[address] [place] [address] Sodium [Moles/Vol] 135 mmol/L Normal 135-145 [facility] Comment on above: Performed By: #### H FP, CHM7, MGO ####[facility] (DEFAULT)[address] [place] [address] Urea nitrogen [Mass/Vol] 18 mg/dL Normal 7-25 [place] Comment on above: Performed By: #### H ANTWAN, CHM7, MGO ####[facility] (DEFAULT)[address] [place] [address] Urea nitrogen/Creatinine [Mass ratio] 13 mg/mg Normal [place] Comment on above: Performed By: #### H ANTWAN, CHM7, MGO ####[facility] (DEFAULT)[address] [place] [address] Anion gap [Moles/Vol] 12 mmol/L 7 - 17 mmol/L [facility] Chloride [Moles/Vol] 107 mmol/L 98 - 10 8 mmol/L [facility] CO2 [Moles/Vol] 20 mmol/L Low 21 - 31 mmol/L [facility] Creatinine [Mass/Vol] 1.43 mg/dL High 0.70 - 1.30 mg/dL [facility] eGFR, CKD-EPI, Male 60 Low - PINF [facility] Glucose [Mass/Vol] 111 mg/dL High 70 - 99 mg/dL [facility] Osmolality Calc [Osmolality] 286 [facility] Potassium [Moles/Vol] 4.2 mmol/L 3.5 - 5.0 mmol/L [facility] Sodium [Moles/Vol] 135 mmol/L 135 - 145 mmol/L [facility] Urea nitrogen [Mass/Vol] 18 mg/dL 7 - 25 mg/dL [facility] Urea nitrogen/Creatinine [Mass ratio] 13 mg/mg [facility] CONTINUOUS CARDIAC MONITORIN G STRIPon 09-05-2023 [facility] HEPATIC FUNCTION PANELon Albumin [Mass/Vol] 2.8 g/dL Low 3.5-5.0 [facility] Comment on above: Performed By: #### Lydia MONCADA CHMJessica, MGO ####[facility] (DEFAULT)[address] [place] [address] ALP [Catalytic activity/Vol] 103 U/L Normal 32-126 [place] Comment on above: Performed By: #### Lydia MONCADA CHMJessica, MGO ####[facility] (DEFAULT)[address] [place] [address] ALT [Catalytic activity/Vol] 26 U/L Normal 10-52 [place] Comment on above: Performed By: #### Lydia MONCADA CHM7, MGO ####[facility] (DEFAULT)[address] [place] [address] AST [Catalytic activity/Vol] 38 U/L Normal 10-39 [place] Comment on above: Performed By: #### Lydia MONCADA CHM7, MGO ####[facility] (DEFAULT)[address] [place] [address] Bilirubin [Mass/Vol] 0.9 mg/dL Normal <1.5 [place] Comment on above: Performed By: #### Lydia FP, CHM7, MGO ####[facility] (DEFAULT)[address] [place] [address] Bilirubin.indirect [Mass/Vol] 0.1 mg/dL Normal <0.3 [place] Comment on above: Performed By: #### H ANTWAN, HELENM7, MGO ####[facility] (DEFAULT)[address] [place] [address] Protein [Mass/Vol] 6.1 g/dL Low 6.4-8.3 [facility] Comment on above: Performed By: #### H ANTWAN, HELENM7, MGO ####[facility] (DEFAULT)[address] [place] [address] Albumin [Mass/Vol] 2.8 g/dL Low 3.5 - 5.0 g/dL [facility] ALP [Catalytic activity/Vol] 103 U/L 32 - 126 U/L [facility] ALT [Catalytic activity/Vol] 26 U/L 10 - 52 U/L [facility] AST [Catalytic activity/Vol] 38 U/L 10 - 39 U/L [facility] Bilirubin [Mass/Vol] 0.9 mg/dL NINF - 1.5 mg/dL [facility] Bilirubin.direct [Mass/Vol] 0.1 mg/dL NINF - 0.3 mg/dL [facility] Protein [Mass/Vol] 6.1 g/dL Low 6.4 - 8.3 g/dL [facility] HISTOPLASMA ANTIGEN, FLUIDon 09-05-2023 FH SOURCE BAL RML [facility] Histo FLD interpretation Negative [facility] Histoplasma Antigen, FLUID Not detected ng/mL [facility] HISTOPLASMA CAPSULATUM/BLAST OMYCES SPECIES,PCR FLUIDon 09-05-2023 HISTO/BLASTO RESULT Negative Not Applicable [facility] Specimen source Nom (Unsp spec) BAL RML [facility] IMMUNOPHENOTYPING, TISSUE/FL UIDon 09-05-2023 BKR DX CODE Use Ordering [facility] Flow Interpretation See Comment [facility] Flow Interpreted by: Yossi Perla MD, PhD [facility] MAGNESIUMon 09-05-2023 Magnesium [Mass/Vol] 1.7 mg/dL Normal 1.6-2.6 [place] Comment on above: Performed By: #### H FP, CHM7, MGO ####[facility] (DEFAULT)[address] [place] [address] Interpretation and review of laboratory results Normal [facility] Magnesium [Mass/Vol] 1.7 mg/dL 1.6 - 2 .6 mg/dL [facility] No Panel Informationon 09-05 Interpretation and review of laboratory results Abnormal [facility] TACROLIMUS LEVEL, TROUGH ([place] E DRUG LEVEL)Ordered By: Raymundo Mehta on 09-05-2023 Interpretation and review of laboratory results Normal [facility] Tacrolimus (Bld) [Mass/Vol] 5.3 ng/mL [facility] TACROLIMUS LEVEL, TROUGH ([place] E DRUG LEVEL)on 09-05-2023 Tacrolimus, Trough 5.3 ng/mL Normal Bone Susana ow Transplant: 4.0-12.0, Therapeutic: 5.0-15.0 [place] Comment on above: Order Comment: Pleas e draw at specified interval PRIOR to dose. Do not hold dose to wait for level. Specimens batched twice per day, (M-F) and once per day weekendsMethod performed is a chemiluminescent microparticle immunoasssay on the [employer] i2000.The range is based on experience at [facility] and users should be aware that target concentrations vary widely depending on concomitant therapy, time post-transplant, and desired degree of immunosuppression. Performed By: #### T ACRO ####[facility] (DEFAULT)[address] [place] [address] ARTERIAL BLOOD GAS (FULL GOSS EL)on 09-04-2023 Base Excess -1.2 mmol/L Normal -3.0-3.0 [place] Comment on above: Performed By: #### G ASALL ####[facility] (DEFAULT)[address] [place] [address] Carboxyhemoglobin 0.7 % Normal <=1.5 [facility] Comment on above: Performed By: #### G ASAASHISH ####[facility] (DEFAULT)[address] [place] [address] Glucose [Mass/Vol] 159 mg/dL High 70-99 [facility] Comment on above: Performed By: #### G ASALL ####[facility] (DEFAULT)[address] [place] [address] HCO3 (Bld) [Moles/Vol] 22 mmol/L Normal 22-28 [place] Comment on above: Performed By: #### G ASAASHISH ####[facility] (DEFAULT)[address] [place] [address] Hematocrit (Bld) [Volume fraction] 38.0 % Low 40.2-50.4 [place] Comment on above: Performed By: #### G ASAASHISH ####[facility] (DEFAULT)[address] [place] [address] Hemoglobin (Bld) [Mass/Vol] 12.6 g/dL Low 13.4-16.8 [place] Comment on above: Performed By: #### G ASALL ####[facility] (DEFAULT)[address] [place] [address] Ionized Calcium, Whole Blood 4.79 mg/dL Normal 4.60-5.30 [place] Comment on above: Performed By: #### G ASALL ####[facility] (DEFAULT)[address] [place] [address] Lactate, Whole Blood 2.0 mmol/L High 0.5-1.6 [place] Comment on above: Performed By: #### G ASALL ####[facility] (DEFAULT)[address] [place] [address] Methemoglobin 0.0 % Normal <=1.5 [place] Comment on above: Performed By: #### Vale UNDERWOOD ####[facility] [facility] (DEFAULT)[address] [place], [place] [address], [place] [address] Oxyhemoglobin 91 % Low 94-98 [place] Comment on above: Performed By: #### G YASMINE ####[facility] (DEFAULT)[address] [place], [place] [address], [place] [address] pCO2 30 mm Hg Low 32-48 [place] Comment on above: Performed By: #### G YASMINE ####[facility] (DEFAULT)[address] [place], [place] [address], [place] [address] pH (Bld) 7.48 [pH] High 7.35-7.45 [place] Comment on above: Performed By: #### Vale UNDERWOOD ####[facility] (DEFAULT)[address] [place] [address], [place] [address] pO2 62 mm Hg Low 83-108 [place] Comment on above: Performed By: #### Vale UNDERWOOD ####[facility] (DEFAULT)[address] [place], [place] [address], [place] [address] Potassium [Moles/Vol] 4.2 mmol/L Normal 3.5-5.0 [place] Comment on above: Performed By: #### Vale UNDERWOOD ####[facility] (DEFAULT)[address] [place], [place] [address], [place] [address] sO2 92 % Low 94-98 [place] Comment on above: Performed By: #### Vale UNDERWOOD ####[facility] (DEFAULT)[address] [place], [place] [address], [place] [address] Sodium [Moles/Vol] 130 mmol/L Low 135-145 [facility] Comment on above: Performed By: #### Vale UNDERWOOD ####[facility] (DEFAULT)[address] [place], [place] [address], [place] [address] Specimen type Nom (Spec) Arterial Normal [place] Comment on above: Performed By: #### G YASMINE ####[facility] (DEFAULT)[address] [place] [address] Base excess Calc (Bld) [Moles/Vol] -1.2000 mmol/L -3.0 - 3.0 mmol/L [facility] Calcium.ionized (Bld) [Mass/Vol] 4.79 mg/dL 4.60 - 5.30 mg/dL [facility] Carboxyhemoglobin (Bld) [Mass fraction] 0.7 % NINF - 1.5 % [facility] CO2 (Bld) [Partial pressure] 30 mm[Hg] Low [facility] Glucose [Mass/Vol] 159 mg/dL High 70 - 99 mg/dL [facility] HCO3 (Bld) [Moles/Vol] 22 mmol/L 22 - 28 mmol/L [facility] Hematocrit (Bld) [Volume fraction] 38.0 % Low 40.2 - 50.4 % [facility] Hemoglobin (Bld) [Mass/Vol] 12.6 g/dL Low 13.4 - 16.8 g/dL [facility] Interpretation and review of laboratory results Abnormal [facility] Lactate [Moles/Vol] 2.0 mmol/L High 0.5 - 1. 6 mmol/L [facility] Methemoglobin (Bld) [Mass fraction] 0.0 % NINF - 1.5 % [facility] Oxygen (Bld) [Partial pressure] 62 mm[Hg] Low [facility] Oxygen saturation in Blood 92 % Low 94 - 98 % [facility] Oxyhemoglobin 91 % Low 94 - 98 % [facility] pH (Bld) 7.48 [pH] High 7.35 - 7.45 [facility] Potassium [Moles/Vol] 4.2 mmol/L 3.5 - 5.0 mmol/L [facility] Sodium [Moles/Vol] 130 mmol/L Low 135 - 145 mmol/L [facility] Specimen source Nom (Unsp spec) [facility]ial [facility] Bacteria identified Respirat ory culture Nom (Unsp spec)on 09-04-2023 Bacteria identified Cx Nom (Unsp spec) NO GROWTH DAY 2 OF 2 [facility] Microscopic observation Other stain Nom (Unsp spec) [facility] Other stain Nom (Unsp spec) Neutrophils, Rare [facility] Microscopic observation Other stain Nom (Unsp spec) Red Blood Cells [facility] Other stain Nom (Unsp spec) No organisms seen [facility] Bacteria identified Respirat ory culture Nom (Unsp spec)Ordered By: Jose Salgado on 09-04-2023 Bacteria identified Cx Nom (Unsp spec) NO GROWTH DAY 2 OF 2 [facility] Microscopic observation Other stain Nom (Unsp spec) Cytocentrifuge preparation [facility] Microscopic observation Other stain Nom (Unsp spec) Neutrophils, Moderate [facility] Microscopic observation Other stain Nom (Unsp spec) Red Blood Cells Present [facility] Microscopic observation Other stain Nom (Unsp spec) No organisms seen [facility] CBC,PLATELETSon 09-04-2023 Hematocrit (Bld) [Volume fraction] 38.7 % Low 39.6-48.8 [place] Comment on above: Performed By: #### H [facility] ####[facility] (DEFAULT)[address] [place] [address] Hemoglobin (Bld) [Mass/Vol] 12.3 g/dL Low 13.4-16.8 [place] Comment on above: Performed By: #### H [facility] ####[facility] (DEFAULT)[address] [place] [address] MCV (RBC) [Entitic vol] 87.8 fL Normal 79.0-94.5 [place] Comment on above: Performed By: #### H [facility] ####[facility] (DEFAULT)[address] [place] [address] Mean Cell Hgb 27.9 pg Normal 26.1-33.3 [place] Comment on above: Performed By: #### H EMOGC ####[facility] (DEFAULT)[address] [place] [address] Mean Cell Hgb Conc 31.8 g/dL Low 31.9-36.5 [facility] Comment on above: Performed By: #### H EMOGC ####[facility] (DEFAULT)[address] [place] [address] Platelet mean volume (Bld) [Entitic vol] 9.8 fL Normal 8.7-12.3 [place] Comment on above: Performed By: #### H EMOGC ####[facility] (DEFAULT)[address] [place] [address] Platelets (Bld) [#/Vol] 173 10*3/uL Normal 146-337 [place] Comment on above: Performed By: #### H EMOGC ####[facility] (DEFAULT)[address] [facility] [place] [address] RBC (Bld) [#/Vol] 4.41 10*6/uL Normal 4.38-5.83 [place] Comment on above: Performed By: #### H EMOGC ####[facility] (DEFAULT)[address] [place] [address] RBC Distribution 13.2 % Normal 10.9-14.[address] [facility] Comment on above: Performed By: #### H EMOGC ####[facility] (DEFAULT)[address] [place] [address] WBC (Bld) [#/Vol] 4.57 10*3/uL Normal 3.73-10.10 [place] Comment on above: Performed By: #### H EMOGC ####[facility] (DEFAULT)[address] [place] [address] Erythrocyte distribution width (RBC) [Ratio] 13.2 % 10.9 - 14.3 % [facility] Hematocrit (Bld) [Volume fraction] 38.7 % Low 39.6 - 48.8 % [facility] Hemoglobin (Bld) [Mass/Vol] 12.3 g/dL Low 13.4 - 16.8 g/dL [facility] Interpretation and review of laboratory results Abnormal [facility] MCH (RBC) [Entitic mass] 27.9 pg 26.1 - 33.3 pg [facility] MCHC (RBC) [Mass/Vol] 31.8 g/dL Low 31.9 - 36.5 g/dL [facility] MCV (RBC) [Entitic vol] 87.8 fL 79.0 - 94.5 fL [facility] Platelet mean volume (Bld) [Entitic vol] 9.8 fL 8.7 - 12.3 fL [facility] Platelets (Bld) [#/Vol] 173 10*3/uL 146 - 337 K/uL [facility] RBC (Bld) [#/Vol] 4.41 10*6/uL [facility] WBC (Bld) [#/Vol] 4.57 10*3/uL 3.73 - 10. 10 K/uL [facility] CHEM 7 (LYTES,BUN,CREA,GLUC) on 09-04-2023 Anion gap [Moles/Vol] 16 mmol/L Normal 7-17 [place] Comment on above: Performed By: #### M NATHANIEL BLOOM, HFP ####[facility] (DEFAULT)[address] [place] [address] Chloride [Moles/Vol] 104 mmol/L Normal 98-108 [place] Comment on above: Performed By: #### M NATHANIEL BLOOM, HFP ####[facility] (DEFAULT)[address] [place] [address] CO2 [Moles/Vol] 18 mmol/L Low 21-31 [facility] Comment on above: Performed By: #### NATHANIEL RAMÍREZ, HFP ####[facility] (DEFAULT)[address] [place] [address] Creatinine [Mass/Vol] 1.22 mg/dL Normal 0.70-1.30 [place] Comment on above: Performed By: #### NATHANIEL RAMÍREZ, HFP ####[facility] (DEFAULT)[address] [place] [address] GFR/1.73 sq M.predicted among non-blacks MDRD (S/P/Bld) [Vol rate/Area] 71 mL/min/{1.73_m2} Normal >=60 [place] Comment on above: Result Comment: Repo rted eGFR is based on the CKD-EPI 2020 equation using creatinine, age, and sex. Performed By: #### NATHANIEL RAMÍREZ, HFP ####[facility] (DEFAULT)[address] [place] [address] Glucose [Mass/Vol] 124 mg/dL High 70-99 [facility] Comment on above: Performed By: #### NATHANIEL RAMÍREZ, HFP ####[facility] (DEFAULT)[address] [facility] [place] [address] Osmolality [Osmolality] 284 mosm/kg Normal 278-305 [place] Comment on above: Performed By: #### NATHANIEL RAMÍREZ, HFP ####[facility] (DEFAULT)[address] [place] [address] Potassium [Moles/Vol] 3.9 mmol/L Normal 3.5-5.0 [place] Comment on above: Performed By: #### NATHANIEL RAMÍREZ, HFP ####[facility] (DEFAULT)[address] [facility] [place] [address] Sodium [Moles/Vol] 134 mmol/L Low 135-145 [facility] Comment on above: Performed By: #### M HELEN BLOOMM7, HFP ####[facility] (DEFAULT)[address] [place] [address] Urea nitrogen [Mass/Vol] 15 mg/dL Normal 7-25 [place] Comment on above: Performed By: #### M HELEN BLOOMM7, HFP ####[facility] (DEFAULT)[address] [place] [address] Urea nitrogen/Creatinine [Mass ratio] 12 mg/mg Normal [place] Comment on above: Performed By: #### M HELEN BLOOMM7, HFP ####[facility] (DEFAULT)[address] [place] [address] Anion gap [Moles/Vol] 16 mmol/L 7 - 17 mmol/L [facility] Chloride [Moles/Vol] 104 mmol/L 98 - 10 8 mmol/L [facility] CO2 [Moles/Vol] 18 mmol/L Low 21 - 31 mmol/L [facility] Creatinine [Mass/Vol] 1.22 mg/dL 0.70 - 1.30 mg/dL [facility] eGFR, CKD-EPI, Male 71 - PINF [facility] Glucose [Mass/Vol] 124 mg/dL High 70 - 99 mg/dL [facility] Osmolality Calc [Osmolality] 284 [facility] Potassium [Moles/Vol] 3.9 mmol/L 3.5 - 5.0 mmol/L [facility] Sodium [Moles/Vol] 134 mmol/L Low 135 - 145 mmol/L [facility] Urea nitrogen [Mass/Vol] 15 mg/dL 7 - 25 mg/dL [facility] Urea nitrogen/Creatinine [Mass ratio] 12 mg/mg [facility] CMV PCR,FLUIDS,URINE,EYE ETC on 09-04-2023 Specimen source Nom (Unsp spec) BAL LLL [facility] Specimen source Nom (Unsp spec) BAL RML [facility] HEPATIC FUNCTION PANELon Albumin [Mass/Vol] 3.0 g/dL Low 3.5-5.0 [facility] Comment on above: Performed By: #### M MERLE CHM7, HFP ####[facility] (DEFAULT)[address] [place] [address] ALP [Catalytic activity/Vol] 112 U/L Normal 32-126 [place] Comment on above: Performed By: #### M GO CHM7, HFP ####[facility] (DEFAULT)[address] [place] [address] ALT [Catalytic activity/Vol] 22 U/L Normal 10-52 [place] Comment on above: Performed By: #### M MERLE CHM7, HFP ####[facility] (DEFAULT)[address] [place] [address] AST [Catalytic activity/Vol] 30 U/L Normal 10-39 [place] Comment on above: Performed By: #### M GO CHM7, HFP ####[facility] (DEFAULT)[address] [place] [address] Bilirubin [Mass/Vol] 1.2 mg/dL Normal <1.5 [place] Comment on above: Performed By: #### M GO CHM7, HFP ####[facility] (DEFAULT)[address] [place] [address] Bilirubin.indirect [Mass/Vol] 0.4 mg/dL High <0.3 [place] Comment on above: Performed By: #### M GO CHM7, HFP ####[facility] (DEFAULT)[address] [place] [address] Protein [Mass/Vol] 6.4 g/dL Normal 6.4-8.3 [facility] Comment on above: Performed By: #### M GO, CHM7, HFP ####[facility] (DEFAULT)[address] [place] [address] Albumin [Mass/Vol] 3.0 g/dL Low 3.5 - 5.0 g/dL [facility] ALP [Catalytic activity/Vol] 112 U/L 32 - 126 U/L [facility] ALT [Catalytic activity/Vol] 22 U/L 10 - 52 U/L [facility] AST [Catalytic activity/Vol] 30 U/L 10 - 39 U/L [facility] Bilirubin [Mass/Vol] 1.2 mg/dL NINF - 1.5 mg/dL [facility] Bilirubin.direct [Mass/Vol] 0.4 mg/dL High NINF - 0.3 mg/dL [facility] Protein [Mass/Vol] 6.4 g/dL 6.4 - 8.3 g/dL [facility] LEGIONELLA PCRon 09-04-2023 Legionella sp rRNA Probe Ql (Unsp spec) Negative Not Applicable [facility] Specimen source Nom (Unsp spec) BAL RML [facility] Laboratory - Microbiology an d Antimicrobial susceptibilityon 09-04-2023 CMV DNA ESTELITA+probe Ql (Unsp spec) Negative Negative [facility] MAGNESIUMon 09-04-2023 Magnesium [Mass/Vol] 1.4 mg/dL Low 1.6-2.6 [place] Comment on above: Performed By: #### M , M7, [facility] ####[facility] (DEFAULT)[address] [place] [address] Magnesium [Mass/Vol] 1.4 mg/dL Low 1.6 - 2 .6 mg/dL [facility] No Panel Informationon 09-04 Annotation comment [Interpretation] Narrative DNR [facility] PN Report Status DNR [facility] Pneumocystis jiroveci,PCR result Negative Not Applicable [facility] Interpretation and review of laboratory results Abnormal [facility] PNEUMOCYSTIS JIROVECI,PCRon 09-04-2023 Specimen source Nom (Unsp spec) BAL LLL [facility] Specimen source Nom (Unsp spec) BAL RML [facility] Portable XR Chest Viewson RADIOLOGY RADIOLOGY [facility] Radiology Study observation (narrative) [facility] Portable XR Chest ViewsOrder ed By: Joanie Nugent on 09-04-2023 [facility] Work Phone: TACROLIMUS LEVEL, TROUGH ([place] E DRUG LEVEL)on 09-04-2023 Interpretation and review of laboratory results Abnormal [facility] Tacrolimus (Bld) [Mass/Vol] 3.6 ng/mL Low [facility] Tacrolimus, Trough 3.6 ng/mL Low Bone Susana ow Transplant: 4.0-12.0, Therapeutic: 5.0-15.0 [place] Comment on above: Order Comment: Pleas e draw at specified interval PRIOR to dose. Do not hold dose to wait for level. Specimens batched twice per day, (M-F) and once per day weekendsMethod performed is a chemiluminescent microparticle immunoasssay on the [employer] i2000.The range is based on experience at [facility] and users should be aware that target concentrations vary widely depending on concomitant therapy, time post-transplant, and desired degree of immunosuppression. Performed By: #### T ACRO ####[facility] (DEFAULT)[address] [place] [address] XR CHEST PORTABLEon 09-04-20 23 XR CHEST PORTABLE Normal [facility] ASPERGILLUS ANTIGEN, BALon 1 Galactomannan Ag IA Qn (Unsp spec) <0.500 NINF [facility] Galactomannan Ag IA Qn (Unsp spec) <0.500 NINF [facility] BAL CONSULTOrdered By: Noa Peralta on 09-03-2023 ALVEOLAR MACROPHAGES 32 % [facility] Work Phone: Bal comments Correlation with microbiology stains and cultures is recommended. [facility] Work Phone: Bal Diff Quik Stain Quality Check Acceptable [facility] Work Phone: BKR BAL INTERPRETATION Cellular specimen comprised of alveolar macrophages and small lymphocytes. No definitive microorganisms are observed. Moderate degenerative changes. [facility] Work Phone: BKR DX CODE Use Ordering [facility] Work Phone: Eosinophils Patterson stain Ql (Unsp spec) 0 % [facility] Work Phone: Lymphocytes/100 WBC (Bld) 57 % [facility] Work Phone: Neutrophils/100 WBC Manual cnt (Bronch spec) 11 % [facility] Work Phone: Pathologist review Jame (Unsp spec) [Interp] Leonardo Peralta MD [facility] Work Phone: [facility] Work Phone: BAL CONSULTon 09-03-2023 ALVEOLAR MACROPHAGES 33 % [facility] Bal comments Correlation with microbiology stains and cultures is recommended. Correlation with viral studies is recommended. [facility] Bal Diff Quik Stain Quality Check Acceptable [facility] BKR BAL INTERPRETATION Cellular specimen comprised of alveolar macrophages and small lymphocytes. No definitive microorganisms are observed. Rare degenerating cells with changes suggestive of viral cytopathic effect are noted. Moderate degenerative changes. [facility] BKR DX CODE Use Ordering [facility] Eosinophils Patterson stain Ql (Unsp spec) 0 % [facility] Lymphocytes/100 WBC (Bld) 49 % [facility] Neutrophils/100 WBC Manual cnt (Bronch spec) 18 % [facility] Pathologist review Jame (Unsp spec) [Interp] Leonardo Peralta MD [facility] BRONCHOSCOPYon 09-03-2023 LAB, [facility] CBC,PLATELETSon 09-03-2023 Hematocrit (Bld) [Volume fraction] 39.6 % Normal 39.6-48.8 [place] Comment on above: Performed By: #### H EMOGC ####[facility] (DEFAULT)[address] [facility] [place] [address] Hemoglobin (Bld) [Mass/Vol] 12.8 g/dL Low 13.4-16.8 [place] Comment on above: Performed By: #### H EMOGC ####[facility] (DEFAULT)[address] [facility] [place] [address] MCV (RBC) [Entitic vol] 85.9 fL Normal 79.0-94.5 [place] Comment on above: Performed By: #### H EMOGC ####[facility] (DEFAULT)[address] [facility] [place] [address] Mean Cell Hgb 27.8 pg Normal 26.1-33.3 [place] Comment on above: Performed By: #### H EMOGC ####[facility] (DEFAULT)[address] [facility] [place] [address] Mean Cell Hgb Conc 32.3 g/dL Normal 31.9-36.5 [facility] Comment on above: Performed By: #### H EMOGC ####[facility] (DEFAULT)[address] [facility] [place] [address] Platelet mean volume (Bld) [Entitic vol] 9.4 fL Normal 8.7-12.3 [place] Comment on above: Performed By: #### H EMOGC ####[facility] (DEFAULT)[address] [facility] [place] [address] Platelets (Bld) [#/Vol] 222 10*3/uL Normal 146-337 [place] Comment on above: Performed By: #### H EMOGC ####[facility] (DEFAULT)[address] [facility] [place] [address] RBC (Bld) [#/Vol] 4.61 10*6/uL Normal 4.38-5.83 [place] Comment on above: Performed By: #### H [facility] ####[facility] (DEFAULT)[address] [place] [address] RBC Distribution 13.4 % Normal 10.9-14.[address] [facility] Comment on above: Performed By: #### H [facility] ####[facility] (DEFAULT)[address] [place] [address] WBC (Bld) [#/Vol] 4.36 10*3/uL Normal 3.73-10.10 [place] Comment on above: Performed By: #### H [facility] ####[facility] (DEFAULT)[address] [place] [address] Erythrocyte distribution width (RBC) [Ratio] 13.4 % 10.9 - 14.3 % [facility] Hematocrit (Bld) [Volume fraction] 39.6 % 39.6 - 48.8 % [facility] Hemoglobin (Bld) [Mass/Vol] 12.8 g/dL Low 13.4 - 16.8 g/dL [facility] Interpretation and review of laboratory results Abnormal [facility] MCH (RBC) [Entitic mass] 27.8 pg 26.1 - 33.3 pg [facility] MCHC (RBC) [Mass/Vol] 32.3 g/dL 31.9 - 36.5 g/dL [facility] MCV (RBC) [Entitic vol] 85.9 fL 79.0 - 94.5 fL [facility] Platelet mean volume (Bld) [Entitic vol] 9.4 fL 8.7 - 12.3 fL [facility] Platelets (Bld) [#/Vol] 222 10*3/uL 146 - 337 K/uL [facility] RBC (Bld) [#/Vol] 4.61 10*6/uL [facility] WBC (Bld) [#/Vol] 4.36 10*3/uL 3.73 - 10. 10 K/uL [facility] CHEM 7 (LYTES,BUN,CREA,GLUC) on 09-03-2023 Anion gap [Moles/Vol] 12 mmol/L Normal 7-17 [place] Comment on above: Performed By: #### NATHANIEL RAMÍREZ, HFP ####[facility] (DEFAULT)[address] [facility] [place] [address] Chloride [Moles/Vol] 104 mmol/L Normal 98-108 [place] Comment on above: Performed By: #### NATHANIEL RAMÍREZ, HFP ####[facility] (DEFAULT)[address] [facility] [place] [address] CO2 [Moles/Vol] 24 mmol/L Normal 21-31 [facility] Comment on above: Performed By: #### NATHANIEL RAMÍREZ, HFP ####[facility] (DEFAULT)[address] [place] [address] Creatinine [Mass/Vol] 1.20 mg/dL Normal 0.70-1.30 [place] Comment on above: Performed By: #### NATHANIEL RAMÍREZ, HFP ####[facility] (DEFAULT)[address] [facility] [place] [address] GFR/1.73 sq M.predicted among non-blacks MDRD (S/P/Bld) [Vol rate/Area] 73 mL/min/{1.73_m2} Normal >=60 [place] Comment on above: Result Comment: Repo rted eGFR is based on the CKD-EPI 2020 equation using creatinine, age, and sex. Performed By: #### NATHANIEL RAMÍREZ, HFP ####[facility] (DEFAULT)[address] [facility] [place] [address] Glucose [Mass/Vol] 112 mg/dL High 70-99 [facility] Comment on above: Performed By: #### NATHANIEL RAMÍREZ, HFP ####[facility] (DEFAULT)[address] [place] [address] Osmolality [Osmolality] 288 mosm/kg Normal 278-305 [place] Comment on above: Performed By: #### NATHANIEL RAMÍREZ, HFP ####[facility] (DEFAULT)[address] [place] [address] Potassium [Moles/Vol] 4.1 mmol/L Normal 3.5-5.0 [place] Comment on above: Performed By: #### NATHANIEL RAMÍREZ, HFP ####[facility] (DEFAULT)[address] [place] [address] Sodium [Moles/Vol] 136 mmol/L Normal 135-145 [facility] Comment on above: Performed By: #### NATHANIEL RAMÍREZ, HFP ####[facility] (DEFAULT)[address] [place] [address] Urea nitrogen [Mass/Vol] 17 mg/dL Normal 7-25 [place] Comment on above: Performed By: #### NATHANIEL RAMÍREZ, HFP ####[facility] (DEFAULT)[address] [place] [address] Urea nitrogen/Creatinine [Mass ratio] 14 mg/mg Normal [place] Comment on above: Performed By: #### NATHANIEL RAMÍREZ, HFP ####[facility] (DEFAULT)[address] [place] [address] Anion gap [Moles/Vol] 12 mmol/L 7 - 17 mmol/L [facility] Chloride [Moles/Vol] 104 mmol/L 98 - 10 8 mmol/L [facility] CO2 [Moles/Vol] 24 mmol/L 21 - 31 mmol/L [facility] Creatinine [Mass/Vol] 1.20 mg/dL 0.70 - 1.30 mg/dL [facility] eGFR, CKD-EPI, Male 74 - PINF [facility] Glucose [Mass/Vol] 112 mg/dL High 70 - 99 mg/dL [facility] Osmolality Calc [Osmolality] 288 [facility] Potassium [Moles/Vol] 4.1 mmol/L 3.5 - 5.0 mmol/L [facility] Sodium [Moles/Vol] 136 mmol/L 135 - 145 mmol/L [facility] Urea nitrogen [Mass/Vol] 17 mg/dL 7 - 25 mg/dL [facility] Urea nitrogen/Creatinine [Mass ratio] 14 mg/mg [facility] CYTOLOGY, NON-GYNOrdered By: Sherice Jimenez on 09-03-2023 CYTOLOGIC DIAGNOSIS r1vtgZMdQIUxbKKzAAPrO5ckxvE aOVOlrFLtR3QbgapwRFuuWW6tGV 6veVpuiSHqvJBgNYEpEaTnc5scw 845cWOjr9vpEDYAbiptdGe5k6he EIWMhO3qw8u7sA43IRMubP4hxRS oNWodbyNoFZgoxgQjytYsUcf2RS F7aIpaPpejxUX6wDVnjIO2HIcuq 2GimXuzkOibCJA9EXHkCbbyLWgi jGO3oSNkwVktnUXrTF9hw9vsnIL 5jvVrSTV5hPpouIJ3nWujcgheg2 hbpCZ7jJJ3GQfamKI3YZbxIyIuH 5waYIMhuP0qA30eE2amQGLafGvf LTamXTBijSK2SHV8EIKba5zsZIB taBQipXFuHfTtYVgqLee8z7oxBY TjxW09iUOplgO0sQxyFEyswWL6C J96MCihk1PtLZMpmFxoTCJkrG4n YzIzXGxldmVsbmZjbjIzXGxldmV lzdGjODmtnvXpm4PvgdNbeMH9NL iyucKcaCG0sMkqSXIvY1N5Z216S WkywiYwyjKtIaRxdcd9BSMhjZga bGlzdGxldmVsXGxldmVsbmZjMjN liJQ5QCwzOjMpEyAvaJE0DDlaTc AjsRD3QAekxEWtvJC1BDzjjMA8R Jg4CDt9EDtiFXuvMmy1pHitiAU7 QPplbR9nYEExG95lBdC7u9fzoIF 8tOU0VDsnlWS9EGfaDzOvL9klXX ZfjY9jC61oN9hvZINsaQytHMqlP XCkrSC7FKX6ABNos0shXAObfNGp pWNcWvKnKFfjDpz3h4iqMKPuvX3 9bOQpogN9eVgwPE24GFykh4HwSV RxsOgqLZOdaE4rPzFjEKtghcXry mZjbjIzXGxldmVsamMwXGxldmVs h1BqfaTspGX2BWuymjTohKJ6fWr aNWHxP2V1F129GHpvmzQoyxSiRu Mkxhw1UORvcSixcXswyMcjwwInI UgxypNvxvOxYgRbfOV9FFadUlBt ThBucHO8COkgYrIodNA0LHgzkMZ nkOV2RMbyhIV9CQo0DMq2BNnkZW rdVda3iEmosPR3JDzdbC4pWCMeR 99iNlV5l8pkuTA8qXU2OXdskIE9 XDysSrNcM1bvQZCodP3rE87hD5x wYOFjcJwoENezVBEelNO5ZIY6RI Hfo2pnJBSctYLzaYMoKtPeHLopT bu4b4rtJAEasL06sFNkbmI8sDxo MW52YFkfq2GeQPXslTdaNUKjjQ9 mYzIzXGxldmVsbmZjbjIzXGxldm OkhcZnZZoryrRid7EjkbIrhAM6Z CmzoyRyhDO5oLctAFRuG4O9N217 URbgvyMxqoYwUtJbopp2FSNczCb cbGlzdGxldmVsXGxldmVsbmZjMj QhqDU2ENfmFaTiLaMmmIJ4ROwlC bIgoKA6GNoeeGSflAO8NCneyHN3 HQk0NGp3POtsNWgzTrr0tMgdnFC 6PTlqsU0sVFTtQ50yAnE2uK57WW gdgWkzmR64QBEiaQBvfFHppHN2L ZttfAvlzF24YBUtaVTwYJjue5Rg CISnKtU8XZR6JUZlyZdkyQ39HHJ emVFjE387spIvSUhaQP77EBGxnP FiuoKmEfLrJZNduKCnkQF3VZTkH Q3rnhfyWUywAIjwVMIkfpK5SSUe lQSzH3XbCAZuDC4tcvwpFYL3HGr eDCDlAQV0YsOrUHKvc2Bvald2Qx ExyJi7i1odMDZqVZNlfMukf0fhV ZS2NPSjhDHkV6dwpZ3wNWBmRX0o qocfr9qiLZtjOWdbIKSnuEP0zkP 6QFZryRBeL2WnvM5fXFPbTVBswi ZpjZnpxX4jXxseekPwZSGuRPQDV aUCLl2VT7uLYYaVBI8PVJNcLDVU BRgEYILVGEVFUPjCQ5IVQXkPKzA hPTPcWEMnX8xTW9aND8qlBzipKl PzIXaaIUEtImMlJ1ZcWOAmuxfvQ AWnIIUJOV7MDDFGIEWVTb8HSRZ4 KRAdzahshEZ6YBmnghTnwKj8uUI wdWwzcS6zYndbpwWjPKGmECDCbt DRNObvN51chcSrX3BybSYnUPWyC IxhBA67fOXvJUEyaTVuYRx0tO9p PYrytVvveqJZmPPfxI7maawgBXa jZjBccGFyXGxpMFxsczBccGFyfQ == [facility] Work Phone: Case Report [facility] Work Phone: Clinical History p8bogZFiVVWmhLOjINKk O5bmjoE xKTHwdUClP5MlxhfsLHiuBD9uOA 4ihAigvGGbjZVyELRsKtHap9ukd 021vOYcw6dcFGNRiupnxTw8rZta A83wl8L9DvldF0lfPCMyPRmaMFL lSNzqnFOlIEy6YSLxbEVajvSrZx VtOLBmfRBheGX1KDXjFW9qnvgpH RqbXZwyTIZgrzQ0EBLneLTxS3Sf MSSvRE7yxxmlDNJ6TSybMHAhAEE 1WbSpSFAff3Unepw3DsOenWe6x1 saDPOgJKCybJcey6daYXT1ILPxh VLbL1vxlD6eLUYyHS5fqdtwr7pr VZwzTSszXYYwbMR5vzL4NJEypME qU7DrlA2eEYNzIOAxwsUivUwnaT 5cZnMyMFxjZjEgUmVuYWwgdHJhb hRasNCniT1sHKOknk4= [facility] Work Phone: For Immediate Release to Patient's MyChart? Yes Yes [facility] Work Phone: Gross Description f4cedGCoYWJpnCWiJJSy J5zffuG hDPUhnUIeK9JugdznTIenNJ7sYR 3rkYyetARnpJEoDXRuWlRee5rse 036oUSik4hlFZSQdzfmiNk5gJxh X46vk7J2FwluV64zeAPfVBE7NQR tRVDhoMSxCPKhKUB2RKPsdGIuD8 voJGWmUA9qwmytFSitCFxyHFIbg AK9VNAdhFNcE8FdWBAxGDefFFCe nxi0GlNcOc1rnPPbtVfwHUtfKJC kXHBsYWluXGZzMjAgTExMIEJBTF yaSLIhVYMmsMMbPMb9HFNwgS9uj UFydlVjlEYfgA2jgCotHRydOMSe PGFGWJVaxOoyLSTXJGUir0HxjJ1 ccGFyXHBhcmRccGFyXHBhcn0= [facility] Work Phone: [facility] Work Phone: HEPATIC FUNCTION PANELon Albumin [Mass/Vol] 3.2 g/dL Low 3.5-5.0 [facility] Comment on above: Performed By: #### M MERLE CHM7, HFP ####[facility] (DEFAULT)[address] [place] [address] ALP [Catalytic activity/Vol] 118 U/L Normal 32-126 [place] Comment on above: Performed By: #### M MERLE CHM7, HFP ####[facility] (DEFAULT)[address] [facility] [place] [address] ALT [Catalytic activity/Vol] 25 U/L Normal 10-52 [place] Comment on above: Performed By: #### M MERLE CHM7, HFP ####[facility] (DEFAULT)[address] [facility] [place] [address] AST [Catalytic activity/Vol] 32 U/L Normal 10-39 [place] Comment on above: Performed By: #### M MERLE CHM7, HFP ####[facility] (DEFAULT)[address] [place] [address] Bilirubin [Mass/Vol] 1.0 mg/dL Normal <1.5 [place] Comment on above: Performed By: #### M NATHANIEL BLOOM, HFP ####[facility] (DEFAULT)[address] [place] [address] Bilirubin.indirect [Mass/Vol] 0.3 mg/dL High <0.3 [place] Comment on above: Performed By: #### M NATHANIEL BLOOM, HFP ####[facility] (DEFAULT)[address] [facility] [place] [address] Protein [Mass/Vol] 6.5 g/dL Normal 6.4-8.3 [facility] Comment on above: Performed By: #### NATHANIEL RAMÍREZ, HFP ####[facility] (DEFAULT)[address] [facility] [place] [address] Albumin [Mass/Vol] 3.2 g/dL Low 3.5 - 5.0 g/dL [facility] ALP [Catalytic activity/Vol] 118 U/L 32 - 126 U/L [facility] ALT [Catalytic activity/Vol] 25 U/L 10 - 52 U/L [facility] AST [Catalytic activity/Vol] 32 U/L 10 - 39 U/L [facility] Bilirubin [Mass/Vol] 1.0 mg/dL NINF - 1.5 mg/dL [facility] Bilirubin.direct [Mass/Vol] 0.3 mg/dL High NINF - 0.3 mg/dL [facility] Protein [Mass/Vol] 6.5 g/dL 6.4 - 8.3 g/dL [facility] HISTOPLASMA AND BLASTOMYCES ANTIGEN, ENZYME IMMUNOASSAY, SERMon 09-03-2023 Histoplasma/Blastomy antonia Ag Result Detected Critically abnormal Not Detected [facility] Histoplasma/Blastomy [place]ia Ag Value 5.3 ng/mL [facility] Interpretation and review of laboratory results Abnormal [facility] IMMUNOPHENOTYPING, TISSUE/FL UIDon 09-03-2023 BKR DX CODE Use Ordering Normal [place] Comment on above: Order Comment: Pleas e lab add on to specimen collected yesterdayIMMUNOPHENOTYPING DIAGNOSISPATIENT NAME: GEORGE SLATER: 1970MRN: [id number]#: [id number] BY: Yossi Perla M.D,, Ph.D. [id number] TYPE: Bronchial Alveolar LavageLABORATORY INTERPRETATION:There is no [...] The Flow Cytometry Laboratory at [facility]. It has notbeen cleared or approved by the FDA. This laboratory is certifiedunder the Clinical Laboratory Improvement Amendments (CLIA)as qualified to perform high complexity clinical laboratorytesting. This test is used for clinical purposes. It should notbe regarded as investigational or for research.The [facility] Flow Cytometry Laboratory lower limitof CLL MRD detection is 0.1% of the gated lymphocytes. Performed By: #### G IPP ####[facility] (DEFAULT)[address] [place] [address] Flow Interpretation See Comment Normal [place] Comment on above: Order Comment: Dilan gregory lab add on to specimen collected yesterdayIMMUNOPHENOTYPING DIAGNOSISPATIENT NAME: GEORGE SLATER: 1970MRN: [id number]#: [id number] BY: Yossi Perla M.D,, Ph.D. [id number] TYPE: Bronchial Alveolar LavageLABORATORY INTERPRETATION:There is no [...] The Flow Cytometry Laboratory at [facility]. It has notbeen cleared or approved by the FDA. This laboratory is certifiedunder the Clinical Laboratory Improvement Amendments (CLIA)as qualified to perform high complexity clinical laboratorytesting. This test is used for clinical purposes. It should notbe regarded as investigational or for research.The [facility] Flow Cytometry Laboratory lower limitof CLL MRD detection is 0.1% of the gated lymphocytes. Performed By: #### G IPP ####[facility] ([facility])[address] [place] [address] Flow Interpreted by: Yossi Perla MD, PhD [facility] Comment on above: Order Comment: Pleas e lab add on to specimen collected yesterdayIMMUNOPHENOTYPING DIAGNOSISPATIENT NAME: GEORGE SLATER: 1970MRN: [id number]#: [id number] BY: Yossi Perla M.D,, Ph.D. [id number] TYPE: Bronchial Alveolar LavageLABORATORY INTERPRETATION:There is no [...] The Flow Cytometry Laboratory at [facility]. It has notbeen cleared or approved by the FDA. This laboratory is certifiedunder the Clinical Laboratory Improvement Amendments (CLIA)as qualified to perform high complexity clinical laboratorytesting. This test is used for clinical purposes. It should notbe regarded as investigational or for research.The [facility] Flow Cytometry Laboratory lower limitof CLL MRD detection is 0.1% of the gated lymphocytes. Performed By: #### G IPP ####[facility] (DEFAULT)[address] [place] [address] MAGNESIUMon 09-03-2023 Magnesium [Mass/Vol] 1.6 mg/dL Normal 1.6-2.6 [place] Comment on above: Performed By: #### M GO, CHM7, [facility] ####[facility] (DEFAULT)[address] [place] [address] Interpretation and review of laboratory results Normal [facility] Magnesium [Mass/Vol] 1.6 mg/dL 1.6 - 2 .6 mg/dL [facility] No Panel Informationon 09-03 Interpretation and review of laboratory results Abnormal [facility] PARVOVIRUS (B19) DNA, PCR, B LOODon 09-03-2023 PARVOVIRUS B19 BY RAPID PCR Not detected Not Detected [facility] [place] SPEC SOURCE Whole Blood [facility] Portable XR Chest Viewson RADIOLOGY RADIOLOGY [facility] Radiology Study observation (narrative) [facility] Portable XR Chest ViewsOrder ed By: [place] on 09-03-2023 [facility] Work Phone: XR CHEST PORTABLEon 09-03-20 23 XR CHEST PORTABLE Normal [facility] ACID FAST CULTUREon 09-02-20 23 Bacteria identified Cx Nom (Unsp spec) NO GROWTH DAY [address] [facility] Comment on above: Performed By: #### A FB ####[facility] (DEFAULT)[address] [place] [address] Fluorochrome Stain No acid Fast Bacillus Seen Normal [place] Comment on above: Performed By: #### A FB ####[facility] (DEFAULT)[address] [place] [address] Bacteria identified Cx Nom (Unsp spec) NO GROWTH DAY [address] [facility] Comment on above: Order Comment: BAL A FB culture. Clinical suspicion for non-tuberculous mycobacteria Performed By: #### A FB ####[facility] (DEFAULT)[address] [place] [address] Fluorochrome Stain No acid Fast Bacillus Seen Normal [place] Comment on above: Order Comment: BAL A FB culture. Clinical suspicion for non-tuberculous mycobacteria Performed By: #### A FB ####[facility] (DEFAULT)[address] [place] [address] ASPERGILLUS (GALACTOMANNAN), ANTIGENon 09-02-2023 Galactomannan Ag IA Qn <0.500 NINF [facility] ASPERGILLUS ANTIGEN, BALon 1 Aspergillus Galactomannan Antigen, BAL <0.500 Normal <0.5 [place] Comment on above: Result Comment: ---- ADDITIONAL INFORMATION This is a qualitative test and the resulted index value isnot indicative of disease severity. Serial testing isrecommended for patients at high risk for invasiveaspergillosis.This assay was performed using the FDA-cleared [employer] Aspergillus Galactomannan EIA.Test Performed by:[address] [id number] Director: Rosendo Bose M.D. Ph.D.; CLIA# [id number] Performed By: #### X ASGFL ####[facility] (DEFAULT)[address] [address] Aspergillus Galactomannan Antigen, BAL <0.500 Normal <0.5 [place] Comment on above: Order Comment: BAL a spirgillus antigen Result Comment: ---- ADDITIONAL INFORMATION This is a qualitative test and the resulted index value isnot indicative of disease severity. Serial testing isrecommended for patients at high risk for invasiveaspergillosis.This assay was performed using the FDA-cleared [employer] Aspergillus Galactomannan EIA.Test Performed by:[place] [id number] Director: Rosendo Bose M.D. Ph.D.; CLIA# [id number] Performed By: #### X ASGFL ####[facility] (DEFAULT)[address] [address] ATYPICAL BACTERIAL PNEUMONIA ,PCROrdered By: Shari Contreras on 09-02-2023 B. parapertussis DNA ESTELITA+probe Ql (Unsp spec) Not detected Not Detected [facility] B. pertussis DNA ESTELITA+probe Ql (Unsp spec) Not detected Not Detected [facility] C. pneumoniae DNA ESTELITA+probe Ql (Unsp spec) Not detected Not Detected [facility] Interpretation and review of laboratory results Normal [facility] M. pneumoniae DNA ESTELITA+probe Ql (Unsp spec) Not detected Not Detected [facility] ATYPICAL BACTERIAL PNEUMONIA ,PCRon 09-02-2023 Bordetella Parapertussis Not detected Normal Not Detected [place] Comment on above: Order Comment: Viral transport [...] by The Clinical Microbiology Laboratory at [facility] [place]. It has not been cleared or approved by the FDA. The laboratory is required under CLIA as qualified to perform high-complexity testing. This test is used for clinical purposes. It should not be regarded as investigational or for research. Performed By: #### A TYPNE ####[facility] (DEFAULT)[address] [place] [address] Bordetella Pertussis Not detected Normal Not Detected [place] Comment on above: Order Comment: Viral transport [...] by The [facility] [place]. It has not been cleared or approved by the FDA. The laboratory is required under CLIA as qualified to perform high-complexity testing. This test is used for clinical purposes. It should not be regarded as investigational or for research. Performed By: #### A TYPNE ####[facility] (DEFAULT)[address] [place] [address] Chlamydia Pneumoniae Not detected Normal Not Detected [place] Comment on above: Order Comment: Viral transport [...] by The [facility] [place]. It has not been cleared or approved by the FDA. The laboratory is required under CLIA as qualified to perform high-complexity testing. This test is used for clinical purposes. It should not be regarded as investigational or for research. Performed By: #### A TYPNE ####[facility] (DEFAULT)[address] [place] [address] Mycoplasma Pneumoniae Not detected Normal Not Detected [place] Comment on above: Order Comment: Viral transport [...] by The [facility] [place]. It has not been cleared or approved by the FDA. The laboratory is required under CLIA as qualified to perform high-complexity testing. This test is used for clinical purposes. It should not be regarded as investigational or for research. Performed By: #### A TYPNE ####[facility] (DEFAULT)[address] [place] [address] BAL CONSULTon 09-02-2023 ALVEOLAR MACROPHAGES 33 % Normal [place] Comment on above: Order Comment: BAL c onsultIf > 15% lymphocytes - please send for flow. Performed By: #### B ALC ####[facility] (DEFAULT)[address] [place] [address] Bal comments Correlation with microbiology stains and cultures is recommended. Correlation with viral studies is recommended. Normal [place] Comment on above: Order Comment: BAL c onsultIf > 15% lymphocytes - please send for flow. Performed By: #### B ALC ####[facility] (DEFAULT)[address] [place] [address] Bal Diff Quik Stain Quality Check Acceptable Normal [place] Comment on above: Order Comment: BAL c onsultIf > 15% lymphocytes - please send for flow. Performed By: #### B ALC ####[facility] (DEFAULT)[address] [place] [address] Bal Reviewed By: Leonardo Peralta MD Normal [place] Comment on above: Order Comment: BAL c onsultIf > 15% lymphocytes - please send for flow. Performed By: #### B ALC ####[facility] (DEFAULT)[address] [place] [address] BKR BAL INTERPRETATION Cellular specimen comprised of alveolar macrophages and small lymphocytes. No definitive microorganisms are observed. Rare degenerating cells with changes suggestive of viral cytopathic effect are noted. Moderate degenerative changes. Normal [place] Comment on above: Order Comment: BAL c onsultIf > 15% lymphocytes - please send for flow. Performed By: #### B ALC ####[facility] (DEFAULT)[address] [place] [address] BKR DX CODE Use Ordering Normal [place] Comment on above: Order Comment: BAL c onsultIf > 15% lymphocytes - please send for flow. Performed By: #### B ALC ####[facility] (DEFAULT)[address] [place] [address] Eosinophils/100 WBC (Bld) 0 % Normal [place] Comment on above: Order Comment: BAL c onsultIf > 15% lymphocytes - please send for flow. Performed By: #### B ALC ####[facility] (DEFAULT)[address] [facility] [place] [address] Lymphocytes/100 WBC (Bld) 49 % Normal [place] Comment on above: Order Comment: BAL c onsultIf > 15% lymphocytes - please send for flow. Performed By: #### B ALC ####[facility] (DEFAULT)[address] [place] [address], [place] [address] Neutrophils/100 WBC (Bld) 18 % Normal [place] Comment on above: Order Comment: BAL c onsultIf > 15% lymphocytes - please send for flow. Performed By: #### B ALC ####[facility] (DEFAULT)[address] [place] [address] ALVEOLAR MACROPHAGES 32 % Normal [place] Comment on above: Order Comment: BAL c onsult for cell differential and pathologist review. Please do flow cytometry if > 12% lymphocytes Performed By: #### B ALC ####[facility] (DEFAULT)[address] [place] [address] Bal comments Correlation with microbiology stains and cultures is recommended. [facility] Comment on above: Order Comment: BAL c onsult for cell differential and pathologist review. Please do flow cytometry if > 12% lymphocytes Performed By: #### B ALC ####[facility] (DEFAULT)[address] [place] [address] Bal Diff Quik Stain Quality Check Acceptable Normal [place] Comment on above: Order Comment: BAL c onsult for cell differential and pathologist review. Please do flow cytometry if > 12% lymphocytes Performed By: #### B ALC ####[facility] (DEFAULT)[address] [place] [address] Bal Reviewed By: Leonardo Peralta MD [facility] Comment on above: Order Comment: BAL c onsult for cell differential and pathologist review. Please do flow cytometry if > 12% lymphocytes Performed By: #### B ALC ####[facility] (DEFAULT)[address] [place] [address] BKR BAL INTERPRETATION Cellular specimen comprised of alveolar macrophages and small lymphocytes. No definitive microorganisms are observed. Moderate degenerative changes. Normal [place] Comment on above: Order Comment: BAL c onsult for cell differential and pathologist review. Please do flow cytometry if > 12% lymphocytes Performed By: #### B ALC ####[facility] (DEFAULT)[address] [facility] [place] [address] BKR DX CODE Use Ordering [facility] Comment on above: Order Comment: BAL c onsult for cell differential and pathologist review. Please do flow cytometry if > 12% lymphocytes Performed By: #### B ALC ####[facility] (DEFAULT)[address] [place] [address] Eosinophils/100 WBC (Bld) 0 % Normal [place] Comment on above: Order Comment: BAL c onsult for cell differential and pathologist review. Please do flow cytometry if > 12% lymphocytes Performed By: #### B ALC ####[facility] (DEFAULT)[address] [facility] [address] Lymphocytes/100 WBC (Bld) 57 % Normal [place] Comment on above: Order Comment: BAL c onsult for cell differential and pathologist review. Please do flow cytometry if > 12% lymphocytes Performed By: #### B ALC ####[facility] (DEFAULT)[address] [place] [address] Neutrophils/100 WBC (Bld) 11 % Normal [place] Comment on above: Order Comment: BAL c onsult for cell differential and pathologist review. Please do flow cytometry if > 12% lymphocytes Performed By: #### B ALC ####[facility] (DEFAULT)[address] [facility] [place] [address] BRONCHOSCOPYon 09-02-2023 Radiology Study observation (narrative) [facility] Bacteria identified Cx Nom ( Bld)on 09-02-2023 Bacteria identified Cx Nom (Unsp spec) NO GROWTH DAY 5 OF 5 [facility] CBC,PLATELETSon 09-02-2023 Hematocrit (Bld) [Volume fraction] 39.9 % Normal 39.6-48.8 [place] Comment on above: Performed By: #### H EMOGC ####[facility] (DEFAULT)[address] [place] [address] Hemoglobin (Bld) [Mass/Vol] 12.9 g/dL Low 13.4-16.8 [place] Comment on above: Performed By: #### H EMOGC ####[facility] (DEFAULT)[address] [place] [address] MCV (RBC) [Entitic vol] 86.4 fL Normal 79.0-94.5 [place] Comment on above: Performed By: #### H EMOGC ####[facility] Center (DEFAULT)[address] [place] [address] Mean Cell Hgb 27.9 pg Normal 26.1-33.3 [place] Comment on above: Performed By: #### H EMOGC ####[facility] (DEFAULT)[address] [place] [address] Mean Cell Hgb Conc 32.3 g/dL Normal 31.9-36.5 [facility] Comment on above: Performed By: #### H EMOGC ####[facility] (DEFAULT)[address] [facility] [place] [address] Platelet mean volume (Bld) [Entitic vol] 9.5 fL Normal 8.7-12.3 [place] Comment on above: Performed By: #### H EMOGC ####[facility] (DEFAULT)[address] [facility] [place] [address] Platelets (Bld) [#/Vol] 210 10*3/uL Normal 146-337 [place] Comment on above: Performed By: #### H EMOGC ####[facility] (DEFAULT)[address] [place] [address] RBC (Bld) [#/Vol] 4.62 10*6/uL Normal 4.38-5.83 [place] Comment on above: Performed By: #### H EMOGC ####[facility] (DEFAULT)[address] [place] [address] RBC Distribution 13.2 % Normal 10.9-14.[address] [facility] Comment on above: Performed By: #### H EMOGC ####[facility] (DEFAULT)[address] [place] [address] WBC (Bld) [#/Vol] 4.12 10*3/uL Normal 3.73-10.10 [place] Comment on above: Performed By: #### H EMOGC ####[facility] (DEFAULT)[address] [place] [address] Erythrocyte distribution width (RBC) [Ratio] 13.2 % 10.9 - 14.3 % [facility] Hematocrit (Bld) [Volume fraction] 39.9 % 39.6 - 48.8 % [facility] Hemoglobin (Bld) [Mass/Vol] 12.9 g/dL Low 13.4 - 16.8 g/dL [facility] Interpretation and review of laboratory results Abnormal [facility] MCH (RBC) [Entitic mass] 27.9 pg 26.1 - 33.3 pg [facility] MCHC (RBC) [Mass/Vol] 32.3 g/dL 31.9 - 36.5 g/dL [facility] MCV (RBC) [Entitic vol] 86.4 fL 79.0 - 94.5 fL [facility] Platelet mean volume (Bld) [Entitic vol] 9.5 fL 8.7 - 12.3 fL [facility] Platelets (Bld) [#/Vol] 210 10*3/uL 146 - 337 K/uL [facility] RBC (Bld) [#/Vol] 4.62 10*6/uL [facility] WBC (Bld) [#/Vol] 4.12 10*3/uL 3.73 - 10. 10 K/uL [facility] CHEM 7 (LYTES,BUN,CREA,GLUC) on 09-02-2023 Anion gap [Moles/Vol] 13 mmol/L Normal 7-17 [place] Comment on above: Performed By: #### H FP MGO, CHM7 ####[facility] (DEFAULT)[address] [place] [address] Chloride [Moles/Vol] 105 mmol/L Normal 98-108 [place] Comment on above: Performed By: #### H FP, MGO, CHM7 ####[facility] (DEFAULT)[address] [place] [address] CO2 [Moles/Vol] 22 mmol/L Normal 21-31 [facility] Comment on above: Performed By: #### H DOMENICA MONCADA CHM7 ####[facility] (DEFAULT)[address] [place] [address] Creatinine [Mass/Vol] 1.25 mg/dL Normal 0.70-1.30 [place] Comment on above: Performed By: #### H ANTWAN MGHELEN MercadoM7 ####[facility] (DEFAULT)[address] [facility] [place] [address] GFR/1.73 sq M.predicted among non-blacks MDRD (S/P/Bld) [Vol rate/Area] 69 mL/min/{1.73_m2} Normal >=60 [place] Comment on above: Result Comment: Repo rted eGFR is based on the CKD-EPI 2020 equation using creatinine, age, and sex. Performed By: #### H DOMENICA MONCADA CHM7 ####[facility] (DEFAULT)[address] [facility] [place] [address] Glucose [Mass/Vol] 105 mg/dL High 70-99 [facility] Comment on above: Performed By: #### H ANTWAN MGRogelio CHM7 ####[facility] (DEFAULT)[address] [facility] [place] [address] Osmolality [Osmolality] 287 mosm/kg Normal 278-305 [place] Comment on above: Performed By: #### H ANTWAN MGRogelio CHM7 ####[facility] (DEFAULT)[address] [facility] [place] [address] Potassium [Moles/Vol] 4.3 mmol/L Normal 3.5-5.0 [place] Comment on above: Performed By: #### H FP MGO, CHM7 ####[facility] (DEFAULT)[address] [facility] [place] [address] Sodium [Moles/Vol] 136 mmol/L Normal 135-145 [facility] Comment on above: Performed By: #### H DOMENICA MONCADA CHM7 ####[facility] (DEFAULT)[address] [facility] [place] [address] Urea nitrogen [Mass/Vol] 16 mg/dL Normal 7-25 [place] Comment on above: Performed By: #### H DOMENICA MONCADA CHM7 ####[facility] (DEFAULT)[address] [place] [address] Urea nitrogen/Creatinine [Mass ratio] 13 mg/mg Normal [place] Comment on above: Performed By: #### H DOMENICA MONCADA CHM7 ####[facility] (DEFAULT)[address] [place] [address] Anion gap [Moles/Vol] 13 mmol/L 7 - 17 mmol/L [facility] Chloride [Moles/Vol] 105 mmol/L 98 - 10 8 mmol/L [facility] CO2 [Moles/Vol] 22 mmol/L 21 - 31 mmol/L [facility] Creatinine [Mass/Vol] 1.25 mg/dL 0.70 - 1.30 mg/dL [facility] eGFR, CKD-EPI, Male 69 - PINF [facility] Glucose [Mass/Vol] 105 mg/dL High 70 - 99 mg/dL [facility] Osmolality Calc [Osmolality] 287 [facility] Potassium [Moles/Vol] 4.3 mmol/L 3.5 - 5.0 mmol/L [facility] Sodium [Moles/Vol] 136 mmol/L 135 - 145 mmol/L [facility] Urea nitrogen [Mass/Vol] 16 mg/dL 7 - 25 mg/dL [facility] Urea nitrogen/Creatinine [Mass ratio] 13 mg/mg [facility] CMV PCR,FLUIDS,URINE,EYE ETC on 09-02-2023 CMV by PCR Result Negative Normal Negative [facility] Comment on above: Result Comment: ---- ADDITIONAL INFORMATION This test was developed and its performance characteristicsdetermined by [facility] in a manner consistent with CLIArequirements. This test has not been cleared or approved bythe U.S. Food and Drug Administration.Test Performed by:[address] [address]Zsk Director: Rosendo Bose M.D. Ph.D.; CLIA# [id number] Performed By: #### Y CMV ####[facility] (DEFAULT)[address] [place] [address] CMV BY PCR SOURCE BAL RML Normal [facility] Comment on above: Performed By: #### Y CMV ####[facility] (DEFAULT)[address] [place] [address] CMV by PCR Result Negative Normal Negative [facility] Comment on above: Result Comment: ---- ADDITIONAL INFORMATION This test was developed and its performance characteristicsdetermined by [facility] in a manner consistent with CLIArequirements. This test has not been cleared or approved bythe U.S. Food and Drug Administration.Test Performed by:[address] [address]Aai Director: Rosendo Bose M.D. Ph.D.; CLIA# [id number] Performed By: #### Y CMV ####[facility] (DEFAULT)[address] [place] [address] CMV BY PCR SOURCE BAL LLL Normal [facility] Comment on above: Performed By: #### Y CMV ####[facility] (DEFAULT)[address] [place] [address], [place] [address] CYTOLOGY, NON-GYNon 09-02-20 CYTOLOGIC DIAGNOSIS [facility] Comment on above: Result Comment: A. B RONCHOALVEOLAR LAVAGE, LEFT LOWER LOBE (CYTOLOGY):FINAL DIAGNOSIS:No Malignant Cells Are IdentifiedHypocellular Specimen Performed By: #### N ONGNNONFNA ####[facility] (DEFAULT)[address] [place] [address] Case Report Normal [place] Comment on above: Result Comment: Medi abhishek Cytology Report Case: [id number] Provider: Crow Diaz MD Collected: 09/02/2023 08:38 AMOrdering Location: [facility] Received: 09/02/2023 10:44 AMPathologist: KENTON Caglepecimen: BRONCHOALVEOLAR LAVAGE, LLL BAL Performed By: #### N ONGNNONFNA ####[facility] (DEFAULT)[address] [place] [address] Clinical History Renal transplant. Normal [facility] Comment on above: Performed By: #### N ONGNNONFNA ####[facility] (DEFAULT)[address] [place] [address] Gross Description Normal [facility] Comment on above: Result Comment: LLL BAL1 ml hazy colorless fld unfixed1 TP slide Pap stainFor Immediate Release to Patient's MyChart? Yes Performed By: #### N ONGNNONFNA ####[facility] (DEFAULT)[address] [place] [address] FUNGUS CULTUREon 09-02-2023 Bacteria identified Cx Nom (Unsp spec) Normal [place] Comment on above: Order Comment: Ident ification was performed on the MALDI-TOF mass spectrometer Asteelyper. This test was developed by [facility] [place]. It has not been cleared or approved by the FDA. The laboratory is regulated under CLIA as qualified to perform high-complexity testing. This test is used for clinical purposes. It should not be regarded as investigational or for research. Result Comment: Grow [id number] [place] Histoplasma capsulatum Performed By: #### F UN ####[facility] (DEFAULT)[address] [place] [address] Bacteria identified Cx Nom (Unsp spec) NO GROWTH DAY [address] [facility] Comment on above: Order Comment: BAL f ungal culture Performed By: #### F UN ####[facility] (DEFAULT)[address] [place] [address] HEPATIC FUNCTION PANELon Albumin [Mass/Vol] 3.2 g/dL Low 3.5-5.0 [facility] Comment on above: Performed By: #### H FP, MGO, CHM7 ####[facility] (DEFAULT)[address] [place] [address] ALP [Catalytic activity/Vol] 107 U/L Normal 32-126 [place] Comment on above: Performed By: #### H FP, MGO, CHM7 ####[facility] (DEFAULT)[address] [facility] [place] [address] ALT [Catalytic activity/Vol] 20 U/L Normal 10-52 [place] Comment on above: Performed By: #### H FP, MGO, CHM7 ####[facility] (DEFAULT)[address] [place] [address] AST [Catalytic activity/Vol] 31 U/L Normal 10-39 [place] Comment on above: Performed By: #### H FP, MGO, CHM7 ####[facility] (DEFAULT)[address] [place] [address] Bilirubin [Mass/Vol] 1.0 mg/dL Normal <1.5 [place] Comment on above: Performed By: #### H FP, MGO, CHM7 ####[facility] (DEFAULT)[address] [facility] [address] Bilirubin.indirect [Mass/Vol] 0.3 mg/dL High <0.3 [place] Comment on above: Performed By: #### H DOMENICA MONCADA CHM7 ####[facility] (DEFAULT)[address] [facility] [place] [address] Protein [Mass/Vol] 6.6 g/dL Normal 6.4-8.3 [facility] Comment on above: Performed By: #### H DOMENICA MONCADA CHM7 ####[facility] (DEFAULT)[address] [place] [address] Albumin [Mass/Vol] 3.2 g/dL Low 3.5 - 5.0 g/dL [facility] ALP [Catalytic activity/Vol] 107 U/L 32 - 126 U/L [facility] ALT [Catalytic activity/Vol] 20 U/L 10 - 52 U/L [facility] AST [Catalytic activity/Vol] 31 U/L 10 - 39 U/L [facility] Bilirubin [Mass/Vol] 1.0 mg/[facility]/dL [facility] Bilirubin.direct [Mass/Vol] 0.3 mg/dL High NINF - 0.3 mg/dL [facility] Protein [Mass/Vol] 6.6 g/dL 6.4 - 8.3 g/dL [facility] HISTOPLASMA ANTIGEN, FLUIDon 09-02-2023 FH SOURCE BAL RML Normal [place] Comment on above: Performed By: #### Y FHST ####[facility] (DEFAULT)[address] [facility] [place] [address] Histo FLD interpretation Negative Normal [place] Comment on above: Result Comment: ---- ADDITIONAL INFORMATION Reference interval: None DetectedReportable Range: Positive Results reported in ng/mL from0.20 ng/mL to 20.00 ng/mLPositive Results above 20.00 ng/mL are reported as 'Abovethe Limit of Quantification'Cross-reactions occur with Blastomyces spp., Coccidioidesspp., and Paracoccidioides brasiliensis.This test was developed and its performance characteristicsdetermined by [facility]. It has not beencleared or approved by the FDA; however, FDA clearance orapproval is not currently required for clinical use. Theresults are not intended to be used as the sole means forclinical diagnosis or patient management decisions.Test Performed by:[facility] [facility] [place] [address] Performed By: #### Y ST ####[facility] (DEFAULT)[address] [place] [address] Histoplasma Antigen, FLUID Not detected Normal [place] Comment on above: Performed By: #### Y FHST ####[facility] (DEFAULT)[address] [place] [address] HISTOPLASMA ANTIGEN,URINEon 09-02-2023 H. capsulatum Ag (U) [Mass/Vol] Not detected ng/mL [facility] H. capsulatum Ag IA Ql (U) Not detected Not Detected [facility] HISTOPLASMA CAPSULATUM/BLAST OMYCES SPECIES,PCR FLUIDon 09-02-2023 HISTO/BLASTO RESULT Negative Normal Not Applicable [place] Comment on above: Result Comment: A Ne gative result from BAL fluid does not rule out thepresence of Histoplasma capsulatum because the sensitivity from this source is suboptimal. ADDITIONAL INFORMATION This test was developed and its performance characteristicsdetermined by [facility] in a manner consistent with CLIArequirements. This test has not been cleared or approved bythe U.S. Food and Drug Administration.Test Performed by:[address] [address]Gzr Director: Rosendo Bose M.D. Ph.D.; CLIA# [id number] Performed By: #### Y HBRP ####[facility] (DEFAULT)[address] [facility] [place] [address] Source BAL RML Normal [place] Comment on above: Performed By: #### Y HBRP ####[facility] (DEFAULT)[address] [place] [address] HIV 1 AND 2 ANTIBODIES/P24 A NTIGENOrdered By: Wilma Luque on 09-02-2023 HIV 1+2 Ab+HIV1 p24 Ag IA Ql Non-Reactive Non Reactive [facility] Interpretation and review of laboratory results Normal [facility] HIV 1 AND 2 ANTIBODIES/P24 A NTIGENon 09-02-2023 HIV-1/HIV-2 Ab With p24 Antigen Non-Reactive Normal Non Reactive [place] Comment on above: Performed By: #### L [id number] ####[facility] (DEFAULT)[address] [place] [address] LEGIONELLA CULTUREon 023 Bacteria identified Cx Nom (Unsp spec) NO GROWTH DAY 7 OF [address] [facility] Comment on above: Performed By: #### L EGN ####[facility] (DEFAULT)[address] [facility] [place] [address] Bacteria identified Cx Nom (Unsp spec) NO GROWTH DAY 7 OF [address] [facility] Comment on above: Order Comment: BAL l egionella culture Performed By: #### L EGN ####[facility] (DEFAULT)[address] [place] [address] LEGIONELLA PCRon 09-02-2023 Legionella species, Culture BAL RML Normal [place] Comment on above: Performed By: #### Y LEGRP ####[facility] (DEFAULT)[address] [facility] [place] [address] Legionella, pcr result Negative Normal Not Applicable [place] Comment on above: Result Comment: ---- ADDITIONAL INFORMATION This test was developed and its performance characteristicsdetermined by [facility] in a manner consistent with CLIArequirements. This test has not been cleared or approved bythe U.S. Food and Drug Administration.Test Performed by:[address] [address]Bhp Director: Rosendo Bose M.D. Ph.D.; CLIA# [id number] Performed By: #### Y LEGRP ####[facility] (DEFAULT)[address] [facility] [place] [address] LOWER RESPIRATORY CULTURE, B ACTERIALon 09-02-2023 Bacteria identified Cx Nom (Unsp spec) NO GROWTH DAY 2 OF [address] [facility] Comment on above: Performed By: #### R ES ####[facility] (DEFAULT)[address] [place] [address] Microscopic observation Gram stain Nom (Unsp spec) Normal [place] Comment on above: Result Comment: Cyto centrifuge preparationNeutrophils, RareRed Blood Cells PresentNo organisms seen Performed By: #### R ES ####[facility] (DEFAULT)[address] [facility] [place] [address] Bacteria identified Cx Nom (Unsp spec) NO GROWTH DAY 2 OF [address] [facility] Comment on above: Order Comment: BAL b acterial respiratory culture Performed By: #### R ES ####[facility] (DEFAULT)[address] [place] [address] Microscopic observation Gram stain Nom (Unsp spec) Normal [place] Comment on above: Order Comment: BAL b acterial respiratory culture Result Comment: Cyto centrifuge preparationNeutrophils, ModerateRed Blood Cells PresentNo organisms seen Performed By: #### R ES ####[facility] (DEFAULT)[address] [place] [address] MAGNESIUMon 09-02-2023 Magnesium [Mass/Vol] 1.7 mg/dL Normal 1.6-2.6 [place] Comment on above: Performed By: #### H FP, MGO, CHM7 ####[facility] (DEFAULT)[address] [place] [address], [place] [address] Interpretation and review of laboratory results Normal [facility] Magnesium [Mass/Vol] 1.7 mg/dL 1.6 - 2 .6 mg/dL [facility] No Panel Informationon 09-02 Interpretation and review of laboratory results Abnormal [facility] PNEUMOCYSTIS JIROVECI,PCRon 09-02-2023 PN Report Status DNR Normal [facility] Comment on above: Performed By: #### Y PNRP ####[facility] (DEFAULT)[address] [place] [address] PN Specimen Source BAL RML Normal [facility] Comment on above: Performed By: #### Y PNRP ####[facility] (DEFAULT)[address] [place] [address] Pneum jiroveci comment DNR Normal [place] Comment on above: Performed By: #### Y PNRP ####[facility] (DEFAULT)[address] [place] [address] Pneumocystis jiroveci,PCR result Negative Normal Not Applicable [place] Comment on above: Result Comment: ---- ADDITIONAL INFORMATION This test was developed and its performance characteristicsdetermined by [facility] in a manner consistent with CLIArequirements. This test has not been cleared or approved bythe U.S. Food and Drug Administration.Test Performed by:[address] [address]Uvb Director: Rosendo Bose M.D. Ph.D.; CLIA# [id number] Performed By: #### Y PNRP ####[facility] (DEFAULT)[address] [place] [address] PN Report Status DNR Normal [facility] Comment on above: Performed By: #### Y PNRP ####[facility] (DEFAULT)[address] [facility] [place] [address] PN Specimen Source BAL LLL Normal [facility] Comment on above: Performed By: #### Y PNRP ####[facility] (DEFAULT)[address] [place] [address] Pneum jiroveci comment DNR Normal [place] Comment on above: Performed By: #### Y PNRP ####[facility] (DEFAULT)[address] [facility] [place] [address] Pneumocystis jiroveci,PCR result Negative Normal Not Applicable [place] Comment on above: Result Comment: ---- ADDITIONAL INFORMATION This test was developed and its performance characteristicsdetermined by [facility] in a manner consistent with CLIArequirements. This test has not been cleared or approved bythe U.S. Food and Drug Administration.Test Performed by:[address] [address]Ugb Director: Rosendo Bose M.D. Ph.D.; CLIA# [id number] Performed By: #### Y PNRP ####[facility] (DEFAULT)[address] [place] [address] TACROLIMUS LEVEL, TROUGH ([place] E DRUG LEVEL)on 09-02-2023 Interpretation and review of laboratory results Normal [facility] Tacrolimus (Bld) [Mass/Vol] 4.2 ng/mL [facility] Tacrolimus, Trough 4.2 ng/mL Normal [facility] ow Transplant: 4.0-12.0, Therapeutic: 5.0-15.0 [place] Comment on above: Order Comment: Pleas e draw at specified interval PRIOR to dose. Do not hold dose to wait for level. Specimens batched twice per day, (M-F) and once per day weekendsMethod performed is a chemiluminescent microparticle immunoasssay on the [employer] i2000.The range is based on experience at [facility] and users should be aware that target concentrations vary widely depending on concomitant therapy, time post-transplant, and desired degree of immunosuppression. Performed By: #### T ACRO ####[facility] (DEFAULT)[address] [place] [address] CBC,PLATELETSon 09-01-2023 Hematocrit (Bld) [Volume fraction] 38.9 % Low 39.6-48.8 [place] Comment on above: Performed By: #### H EMOGC ####[facility] (DEFAULT)[address] [facility] [place] [address] Hemoglobin (Bld) [Mass/Vol] 12.7 g/dL Low 13.4-16.8 [place] Comment on above: Performed By: #### H EMOGC ####[facility] (DEFAULT)[address] [facility] [place] [address] MCV (RBC) [Entitic vol] 84.6 fL Normal 79.0-94.5 [place] Comment on above: Performed By: #### H EMOGC ####[facility] (DEFAULT)[address] [facility] [place] [address] Mean Cell Hgb 27.6 pg Normal 26.1-33.3 [place] Comment on above: Performed By: #### H EMOGC ####[facility] (DEFAULT)[address] [facility] [place] [address] Mean Cell Hgb Conc 32.6 g/dL Normal 31.9-36.5 [facility] Comment on above: Performed By: #### H EMOGC ####[facility] (DEFAULT)[address] [facility] [place] [address] Platelet mean volume (Bld) [Entitic vol] 9.4 fL Normal 8.7-12.3 [place] Comment on above: Performed By: #### H EMO ####[facility] (DEFAULT)[address] [facility] [place] [address] Platelets (Bld) [#/Vol] 209 10*3/uL Normal 146-337 [place] Comment on above: Performed By: #### H EMO ####[facility] (DEFAULT)[address] [place] [address] RBC (Bld) [#/Vol] 4.60 10*6/uL Normal 4.38-5.83 [place] Comment on above: Performed By: #### H EMO ####[facility] (DEFAULT)[address] [facility] [place] [address] RBC Distribution 13.4 % Normal 10.9-14.[address] [facility] Comment on above: Performed By: #### H EMO ####[facility] (DEFAULT)[address] [place] [address] WBC (Bld) [#/Vol] 4.41 10*3/uL Normal 3.73-10.10 [place] Comment on above: Performed By: #### H EMO ####[facility] (DEFAULT)[address] [place] [address] Erythrocyte distribution width (RBC) [Ratio] 13.4 % 10.9 - 14.3 % [facility] Hematocrit (Bld) [Volume fraction] 38.9 % Low 39.6 - 48.8 % [facility] Hemoglobin (Bld) [Mass/Vol] 12.7 g/dL Low 13.4 - 16.8 g/dL [facility] Interpretation and review of laboratory results Abnormal [facility] MCH (RBC) [Entitic mass] 27.6 pg 26.1 - 33.3 pg [facility] MCHC (RBC) [Mass/Vol] 32.6 g/dL 31.9 - 36.5 g/dL [facility] MCV (RBC) [Entitic vol] 84.6 fL 79.0 - 94.5 fL [facility] Platelet mean volume (Bld) [Entitic vol] 9.4 fL 8.7 - 12.3 fL [facility] Platelets (Bld) [#/Vol] 209 10*3/uL 146 - 337 K/uL [facility] RBC (Bld) [#/Vol] 4.60 10*6/uL [facility] WBC (Bld) [#/Vol] 4.41 10*3/uL 3.73 - 10. 10 K/uL [facility] CHEM 7 (LYTES,BUN,CREA,GLUC) on 09-01-2023 Anion gap [Moles/Vol] 14 mmol/L Normal 7-17 [place] Comment on above: Performed By: #### H DOMENICA MONCADA CHM7 ####[facility] (DEFAULT)[address] [place] [address] Chloride [Moles/Vol] 103 mmol/L Normal 98-108 [place] Comment on above: Performed By: #### H ANTWAN MGRogelio CHM7 ####[facility] (DEFAULT)[address] [place] [address] CO2 [Moles/Vol] 21 mmol/L Normal 21-31 [facility] Comment on above: Performed By: #### H ANTWAN MGRogelio CHM7 ####[facility] (DEFAULT)[address] [place] [address] Creatinine [Mass/Vol] 1.16 mg/dL Normal 0.70-1.30 [place] Comment on above: Performed By: #### H ANTWAN MGO CHM7 ####[facility] (DEFAULT)[address] [place] [address] GFR/1.73 sq M.predicted among non-blacks MDRD (S/P/Bld) [Vol rate/Area] 76 mL/min/{1.73_m2} Normal >=60 [place] Comment on above: Result Comment: Repo rted eGFR is based on the CKD-EPI 2020 equation using creatinine, age, and sex. Performed By: #### H ANTWAN MGO CHM7 ####[facility] (DEFAULT)[address] [facility] [place] [address] Glucose [Mass/Vol] 117 mg/dL High 70-99 [facility] Comment on above: Performed By: #### H ANTWAN MGO CHM7 ####[facility] (DEFAULT)[address] [facility] [place] [address] Osmolality [Osmolality] 285 mosm/kg Normal 278-305 [place] Comment on above: Performed By: #### H ANTWAN MGO CHM7 ####[facility] (DEFAULT)[address] [facility] [place] [address] Potassium [Moles/Vol] 4.2 mmol/L Normal 3.5-5.0 [place] Comment on above: Performed By: #### H ANTWAN MGO CHM7 ####[facility] (DEFAULT)[address] [facility] [place] [address] Sodium [Moles/Vol] 134 mmol/L Low 135-145 [facility] Comment on above: Performed By: #### H ANTWAN MGO CHM7 ####[facility] (DEFAULT)[address] [place] [address] Urea nitrogen [Mass/Vol] 18 mg/dL Normal 7-25 [place] Comment on above: Performed By: #### H ANTWAN MGO CHM7 ####[facility] (DEFAULT)[address] [facility] [place] [address] Urea nitrogen/Creatinine [Mass ratio] 16 mg/mg Normal [place] Comment on above: Performed By: #### H FP MGO CHM7 ####[facility] (DEFAULT)[address] [place] [address] Anion gap [Moles/Vol] 14 mmol/L 7 - 17 mmol/L [facility] Chloride [Moles/Vol] 103 mmol/L 98 - 10 8 mmol/L [facility] CO2 [Moles/Vol] 21 mmol/L 21 - 31 mmol/L [facility] Creatinine [Mass/Vol] 1.16 mg/dL 0.70 - 1.30 mg/dL [facility] eGFR, CKD-EPI, Male 76 - PINF [facility] Glucose [Mass/Vol] 117 mg/dL High 70 - 99 mg/dL [facility] Osmolality Calc [Osmolality] 285 [facility] Potassium [Moles/Vol] 4.2 mmol/L 3.5 - 5.0 mmol/L [facility] Sodium [Moles/Vol] 134 mmol/L Low 135 - 145 mmol/L [facility] Urea nitrogen [Mass/Vol] 18 mg/dL 7 - 25 mg/dL [facility] Urea nitrogen/Creatinine [Mass ratio] 16 mg/mg [facility] CRYPTOCOCCAL ANTIGENon 09-01 Cryptococcus Antigen,Serum Negative Normal Negative [place] Comment on above: Performed By: #### C RAG ####[facility] (DEFAULT)[address] [place] [address] Cryptococcus sp Ag Ql (S) Negative Negative [facility] Interpretation and review of laboratory results Normal [facility] HEPATIC FUNCTION PANELon Albumin [Mass/Vol] 3.3 g/dL Low 3.5-5.0 [facility] Comment on above: Performed By: #### H DOMENICA MONCADA CHM7 ####[facility] (DEFAULT)[address] [place] [address] ALP [Catalytic activity/Vol] 112 U/L Normal 32-126 [place] Comment on above: Performed By: #### H ANTWAN MGO, CHM7 ####[facility] (DEFAULT)[address] [place] [address] ALT [Catalytic activity/Vol] 21 U/L Normal 10-52 [place] Comment on above: Performed By: #### H FP MGO, CHM7 ####[facility] (DEFAULT)[address] [place] [address] AST [Catalytic activity/Vol] 29 U/L Normal 10-39 [place] Comment on above: Performed By: #### H FP MGO, CHM7 ####[facility] (DEFAULT)[address] [place] [address] Bilirubin [Mass/Vol] 1.0 mg/dL Normal <1.5 [place] Comment on above: Performed By: #### H ANTWAN MGO CHM7 ####[facility] (DEFAULT)[address] [place] [address] Bilirubin.indirect [Mass/Vol] 0.2 mg/dL Normal <0.3 [place] Comment on above: Performed By: #### H ANTWAN MGO, CHM7 ####[facility] (DEFAULT)[address] [place] [address] Protein [Mass/Vol] 6.8 g/dL Normal 6.4-8.3 [facility] Comment on above: Performed By: #### H ANTWAN MGO, CHM7 ####[facility] (DEFAULT)[address] [place] [address] Albumin [Mass/Vol] 3.3 g/dL Low 3.5 - 5.0 g/dL [facility] ALP [Catalytic activity/Vol] 112 U/L 32 - 126 U/L [facility] ALT [Catalytic activity/Vol] 21 U/L 10 - 52 U/L [facility] AST [Catalytic activity/Vol] 29 U/L 10 - 39 U/L [facility] Bilirubin [Mass/Vol] 1.0 mg/dL NINF - 1.5 mg/dL [facility] Bilirubin.direct [Mass/Vol] 0.2 mg/dL NINF - 0.3 mg/dL [facility] Protein [Mass/Vol] 6.8 g/dL 6.4 - 8.3 g/dL [facility] L. pneumophila 1 Ag IA Ql (U )Ordered By: Carolin Miles on 09-01-2023 Interpretation and review of laboratory results Normal [facility] LEGIONELLA URINARY AGOrdered By: Carolin Miles on 09-01-2023 L. pneumophila 1 Ag IA Ql (U) Negative Negative [facility] MAGNESIUMon 09-01-2023 Magnesium [Mass/Vol] 1.6 mg/dL Normal 1.6-2.6 [place] Comment on above: Performed By: #### H ANTWAN, MGO, CHM7 ####[facility] (DEFAULT)[address] [place] [address] Interpretation and review of laboratory results Normal [facility] Magnesium [Mass/Vol] 1.6 mg/dL 1.6 - 2 .6 mg/dL [facility] No Panel Informationon 09-01 Interpretation and review of laboratory results Abnormal [facility] PARVOVIRUS (B19) DNA, PCR, B LOODon 09-01-2023 PARVOVIRUS B19 BY RAPID PCR Not detected Normal Not Detected [place] Comment on above: Result Comment: The primers/probe used in this assay will detectparvovirus B19 and V9 (genotypes 1 # 3) but maynot detect parvovirus genotype 2. The majority ofcirculating Parvovirus B19 strains in the [place] are genotype 1. Genotype 2 is not believed tocirculate widely in the [facility], but has beenassociated with similar clinical features as genotype1. Genotype 3 is most prevalent in some [place].This test was developed and its analyticalperformance characteristics have been determinedby [facility], [place], [place].It has not been cleared or approved by the FDA. Thisassay has been validated pursuant to the CLIAregulations and is used for clinical purposes.Test Performed at:[facility] [place] [id number] Benavides M.D., Ph.D.,Director of Laboratories Performed By: #### Y PRVP ####[facility] (DEFAULT)[address] [place] [address] [place] SPEC SOURCE Whole Blood Normal [facility] Comment on above: Performed By: #### Y PRVP ####[facility] (DEFAULT)[address] [place] [address] ASPERGILLUS (GALACTOMANNAN), ANTIGENon 08-31-2023 Aspergillus Antigen <0.500 Normal <0.5 [place] Comment on above: Result Comment: ---- ADDITIONAL INFORMATION This is a qualitative test and the resulted index value isnot indicative of disease severity. Serial testing isrecommended for patients at high risk for invasiveaspergillosis.This assay was performed using the FDA-cleared [employer] Aspergillus Galactomannan EIA.Test Performed by:[address] [address]Dkx Director: Rosendo Bose M.D. Ph.D.; CLIA# [id number] Performed By: #### Y ASPR ####[facility] (DEFAULT)[address] [place] [address], [place] [address] CBC,PLATELETSon 08-31-2023 Hematocrit (Bld) [Volume fraction] 39.4 % Low 39.6-48.8 [place] Comment on above: Performed By: #### H EMO ####[facility] (DEFAULT)[address] [place] [address], [place] [address] Hemoglobin (Bld) [Mass/Vol] 12.8 g/dL Low 13.4-16.8 [place] Comment on above: Performed By: #### H EMOGC ####[facility] (DEFAULT)[address] [place] [address] MCV (RBC) [Entitic vol] 85.1 fL Normal 79.0-94.5 [place] Comment on above: Performed By: #### H EMOGC ####[facility] (DEFAULT)[address] [place] [address] Mean Cell Hgb 27.6 pg Normal 26.1-33.3 [place] Comment on above: Performed By: #### H EMOGC ####[facility] (DEFAULT)[address] [facility] [place] [address] Mean Cell Hgb Conc 32.5 g/dL Normal 31.9-36.5 [facility] Comment on above: Performed By: #### H EMOGC ####[facility] (DEFAULT)[address] [facility] [place] [address] Platelet mean volume (Bld) [Entitic vol] 9.6 fL Normal 8.7-12.3 [place] Comment on above: Performed By: #### H EMOGC ####[facility] (DEFAULT)[address] [facility] [place] [address] Platelets (Bld) [#/Vol] 228 10*3/uL Normal 146-337 [place] Comment on above: Performed By: #### H EMOGC ####[facility] (DEFAULT)[address] [facility] [place] [address] RBC (Bld) [#/Vol] 4.63 10*6/uL Normal 4.38-5.83 [place] Comment on above: Performed By: #### H EMOGC ####[facility] (DEFAULT)[address] [facility] [place] [address] RBC Distribution 13.3 % Normal 10.9-14.[address] [facility] Comment on above: Performed By: #### H EMOGC ####[facility] (DEFAULT)[address] [place] [address] WBC (Bld) [#/Vol] 4.77 10*3/uL Normal 3.73-10.10 [place] Comment on above: Performed By: #### H [facility] ####[facility] (DEFAULT)[address] [place] [address] Erythrocyte distribution width (RBC) [Ratio] 13.3 % 10.9 - 14.3 % [facility] Hematocrit (Bld) [Volume fraction] 39.4 % Low 39.6 - 48.8 % [facility] Hemoglobin (Bld) [Mass/Vol] 12.8 g/dL Low 13.4 - 16.8 g/dL [facility] Interpretation and review of laboratory results Abnormal [facility] MCH (RBC) [Entitic mass] 27.6 pg 26.1 - 33.3 pg [facility] MCHC (RBC) [Mass/Vol] 32.5 g/dL 31.9 - 36.5 g/dL [facility] MCV (RBC) [Entitic vol] 85.1 fL 79.0 - 94.5 fL [facility] Platelet mean volume (Bld) [Entitic vol] 9.6 fL 8.7 - 12.3 fL [facility] Platelets (Bld) [#/Vol] 228 10*3/uL 146 - 337 K/uL [facility] RBC (Bld) [#/Vol] 4.63 10*6/uL [facility] WBC (Bld) [#/Vol] 4.77 10*3/uL 3.73 - 10. 10 K/uL [facility] CHEM 7 (LYTES,BUN,CREA,GLUC) on 08-31-2023 Anion gap [Moles/Vol] 13 mmol/L Normal 7-17 [place] Comment on above: Performed By: #### M GO, HFP, CHM7, FERROBERT, PROCAL ####[facility] (DEFAULT)[address] [place] [address] Chloride [Moles/Vol] 102 mmol/L Normal 98-108 [place] Comment on above: Performed By: #### M GO, HFP, CHM7, FERIB, PROCAL ####[facility] (DEFAULT)[address] [place] [address] CO2 [Moles/Vol] 23 mmol/L Normal 21-31 [facility] Comment on above: Performed By: #### M GO, HFP, CHM7, FERIB, PROCAL ####[facility] (DEFAULT)[address] [place] [address] Creatinine [Mass/Vol] 1.37 mg/dL High 0.70-1.30 [place] Comment on above: Performed By: #### M GO, HFP, CHM7, FERIB, PROCAL ####[facility] (DEFAULT)[address] [place] [address] GFR/1.73 sq M.predicted among non-blacks MDRD (S/P/Bld) [Vol rate/Area] 62 mL/min/{1.73_m2} Normal >=60 [place] Comment on above: Result Comment: Repo rted eGFR is based on the CKD-EPI 2020 equation using creatinine, age, and sex. Performed By: #### M GO, HFP, CHM7, FERIB, PROCAL ####[facility] (DEFAULT)[address] [place] [address] Glucose [Mass/Vol] 112 mg/dL High 70-99 [facility] Comment on above: Performed By: #### M GO, HFP, CHM7, FERIB, PROCAL ####[facility] (DEFAULT)[address] [facility] [place] [address] Osmolality [Osmolality] 284 mosm/kg Normal 278-305 [place] Comment on above: Performed By: #### M GO, HFP, CHM7, FERIB, PROCAL ####[facility] (DEFAULT)[address] [place] [address] Potassium [Moles/Vol] 4.4 mmol/L Normal 3.5-5.0 [place] Comment on above: Performed By: #### M GO, HFP, CHM7, FERIB, PROCAL ####[facility] (DEFAULT)[address] [place] [address] Sodium [Moles/Vol] 134 mmol/L Low 135-145 [facility] Comment on above: Performed By: #### M GO, HFP, CHM7, FERIB, PROCAL ####[facility] (DEFAULT)[address] [facility] [place] [address] Urea nitrogen [Mass/Vol] 16 mg/dL Normal 7-25 [place] Comment on above: Performed By: #### M GO, HFP, CHM7, FERIB, PROCAL ####[facility] (DEFAULT)[address] [facility] [place] [address] Urea nitrogen/Creatinine [Mass ratio] 12 mg/mg Normal [place] Comment on above: Performed By: #### M GO, HFP, CHM7, FERIB, PROCAL ####[facility] (DEFAULT)[address] [facility] [place] [address] Anion gap [Moles/Vol] 13 mmol/L 7 - 17 mmol/L [facility] Chloride [Moles/Vol] 102 mmol/L 98 - 10 8 mmol/L [facility] CO2 [Moles/Vol] 23 mmol/L 21 - 31 mmol/L [facility] Creatinine [Mass/Vol] 1.37 mg/dL High 0.70 - 1.30 mg/dL [facility] eGFR, CKD-EPI, Male 62 - PINF [facility] Glucose [Mass/Vol] 112 mg/dL High 70 - 99 mg/dL [facility] Osmolality Calc [Osmolality] 284 [facility] Potassium [Moles/Vol] 4.4 mmol/L 3.5 - 5.0 mmol/L [facility] Sodium [Moles/Vol] 134 mmol/L Low 135 - 145 mmol/L [facility] Urea nitrogen [Mass/Vol] 16 mg/dL 7 - 25 mg/dL [facility] Urea nitrogen/Creatinine [Mass ratio] 12 mg/mg [facility] CT ABDOMEN/PELVIS WITHOUT CO NTRASTon 08-31-2023 CT ABDOMEN/PELVIS WITHOUT CONTRAST Normal [place] CT Abdomen and Pelvis WO con traston 08-31-2023 RADIOLOGY RADIOLOGY [facility] Radiology Study observation (narrative) [facility] CT Abdomen and Pelvis WO con trastOrdered By: Chavez Larkin on 08-31-2023 [facility] Work Phone: CT CHEST WITHOUT CONTRASTon 08-31-2023 CT CHEST WITHOUT CONTRAST Normal [place] CT Chest WO contraston 08-31 RADIOLOGY RADIOLOGY [facility] Radiology Study observation (narrative) [facility] CT Chest WO contrastOrdered By: Daisha Patterson on 08-31-2023 [facility] Work Phone: FERRITINon 08-31-2023 Ferritin [Mass/Vol] 409.0 ng/mL High 10.5 - 3 07.3 ng/mL [facility] Interpretation and review of laboratory results Abnormal [facility] Ferritin [Mass/Vol] 409.0 ng/mL High 10.5-307.3 [place] Comment on above: Performed By: #### M TAVO BLOOM, CHM7, FERIB, PROCAL ####[facility] (DEFAULT)[address] [place] [address] HEPATIC FUNCTION PANELon Albumin [Mass/Vol] 3.3 g/dL Low 3.5-5.0 [facility] Comment on above: Performed By: #### M MERLE HFP, CHM7, FERIB, PROCAL ####[facility] (DEFAULT)[address] [place] [address] ALP [Catalytic activity/Vol] 113 U/L Normal 32-126 [place] Comment on above: Performed By: #### M GO, HFP, CHM7, FERIB, PROCAL ####[facility] (DEFAULT)[address] [place] [address] ALT [Catalytic activity/Vol] 25 U/L Normal 10-52 [place] Comment on above: Performed By: #### M GO, HFP, CHM7, FERIB, PROCAL ####[facility] (DEFAULT)[address] [place] [address] AST [Catalytic activity/Vol] 31 U/L Normal 10-39 [place] Comment on above: Performed By: #### M GO, HFP, CHM7, FERIB, PROCAL ####[facility] (DEFAULT)[address] [place] [address] Bilirubin [Mass/Vol] 1.1 mg/dL Normal <1.5 [place] Comment on above: Performed By: #### M GO, HFP, CHM7, FERIB, PROCAL ####[facility] (DEFAULT)[address] [place] [address] Bilirubin.indirect [Mass/Vol] 0.3 mg/dL High <0.3 [place] Comment on above: Performed By: #### M GO, HFP, CHM7, FERIB, PROCAL ####[facility] (DEFAULT)[address] [place] [address] Protein [Mass/Vol] 7.0 g/dL Normal 6.4-8.3 [facility] Comment on above: Performed By: #### M GO, HFP, CHM7, FERIB, PROCAL ####[facility] (DEFAULT)[address] [place] [address] Albumin [Mass/Vol] 3.3 g/dL Low 3.5 - 5.0 g/dL [facility] ALP [Catalytic activity/Vol] 113 U/L 32 - 126 U/L [facility] ALT [Catalytic activity/Vol] 25 U/L 10 - 52 U/L [facility] AST [Catalytic activity/Vol] 31 U/L 10 - 39 U/L [facility] Bilirubin [Mass/Vol] 1.1 mg/dL NINF - 1.5 mg/dL [facility] Bilirubin.direct [Mass/Vol] 0.3 mg/dL High NINF - 0.3 mg/dL [facility] Protein [Mass/Vol] 7.0 g/dL 6.4 - 8.3 g/dL [facility] LEGIONELLA URINARY AGon 10- Legionella Urinary Antigen Negative Normal Negative [place] Comment on above: Performed By: #### L EGION ####[facility] (DEFAULT)[address] [place] [address] MAGNESIUMon 08-31-2023 Magnesium [Mass/Vol] 1.7 mg/dL Normal 1.6-2.6 [place] Comment on above: Performed By: #### M GO, HFP, CHM7, FERIB, PROCAL ####[facility] (DEFAULT)[address] [place] [address] Interpretation and review of laboratory results Normal [facility] Magnesium [Mass/Vol] 1.7 mg/dL 1.6 - 2 .6 mg/dL [facility] No Panel Informationon 08-31 Interpretation and review of laboratory results Abnormal [facility] PROCALCITONINon 08-31-2023 Interpretation and review of laboratory results Normal [facility] Procalcitonin [Mass/Vol] 0.23 ng/mL NINF - 0.50 ng/mL [facility] Procalcitonin 0.23 ng/mL Normal <0.50 [place] Comment on above: Result Comment: Proc alcitonin [...] and trend procalcitonin in various clinical settings. [email or web address] common cutoffs associated with bacterial infections are as follows.Respiratory tract infections: >0.25 ng/mLSepsis/septic shock: >0.5 ng/mLProcalcitonin should not be used alone as a diagnostic tool, however. All procalcitonin results should be interpreted in association with the patients clinical condition and all laboratory findings. Performed By: #### M GO, HFP, CHM7, FERIB, PROCAL ####[facility] (DEFAULT)[address] [place] [address] TACROLIMUS LEVEL, TROUGH ([place] E DRUG LEVEL)Ordered By: Yanira Marcum on 08-31-2023 Interpretation and review of laboratory results Normal [facility] Tacrolimus (Bld) [Mass/Vol] 5.9 ng/mL [facility] TACROLIMUS LEVEL, TROUGH ([place] E DRUG LEVEL)on 08-31-2023 Tacrolimus, Trough 5.9 ng/mL Normal [facility] Susana ow Transplant: 4.0-12.0, Therapeutic: 5.0-15.0 [place] Comment on above: Order Comment: Pleas e draw at specified interval PRIOR to dose. Do not hold dose to wait for level. Specimens batched twice per day, (M-F) and once per day weekendsMethod performed is a chemiluminescent microparticle immunoasssay on the [employer] i2000.The range is based on experience at [facility] and users should be aware that target concentrations vary widely depending on concomitant therapy, time post-transplant, and desired degree of immunosuppression. Performed By: #### T ACRO ####[facility] (DEFAULT)[address] [place] [address] URINE CULTUREOrdered By: Jorge Lozano on 08-31-2023 Bacteria identified Cx Nom (Unsp spec) No Growth [facility] DARYL AURIS SCREEN BY PCRO rdered By: Mynor Alejandro on 08-30-2023 Daryl auris Screen by PCR Not detected Not Detected [facility] Interpretation and review of laboratory results Normal [facility] CBC,PLATELETSon 08-30-2023 Hematocrit (Bld) [Volume fraction] 41.3 % Normal 39.6-48.8 [place] Comment on above: Performed By: #### H EMOGC ####[facility] (DEFAULT)[address] [place] [address] Hemoglobin (Bld) [Mass/Vol] 13.2 g/dL Low 13.4-16.8 [place] Comment on above: Performed By: #### H EMOGC ####[facility] (DEFAULT)[address] [place] [address] MCV (RBC) [Entitic vol] 85.5 fL Normal 79.0-94.5 [place] Comment on above: Performed By: #### H EMOGC ####[facility] (DEFAULT)[address] [place] [address] Mean Cell Hgb 27.3 pg Normal 26.1-33.3 [place] Comment on above: Performed By: #### H EMOGC ####[facility] (DEFAULT)[address] [place] [address] Mean Cell Hgb Conc 32.0 g/dL Normal 31.9-36.5 [facility] Comment on above: Performed By: #### H EMOGC ####[facility] (DEFAULT)[address] [place] [address] Platelet mean volume (Bld) [Entitic vol] 9.2 fL Normal 8.7-12.3 [place] Comment on above: Performed By: #### H EMO ####[facility] (DEFAULT)[address] [place] [address] Platelets (Bld) [#/Vol] 235 10*3/uL Normal 146-337 [place] Comment on above: Performed By: #### H EMO ####[facility] (DEFAULT)[address] [place] [address] RBC (Bld) [#/Vol] 4.83 10*6/uL Normal 4.38-5.83 [place] Comment on above: Performed By: #### H [facility] ####[facility] (DEFAULT)[address] [place] [address] RBC Distribution 13.3 % Normal 10.9-14.[address] [facility] Comment on above: Performed By: #### H EMO ####[facility] (DEFAULT)[address] [place] [address] WBC (Bld) [#/Vol] 4.96 10*3/uL Normal 3.73-10.10 [place] Comment on above: Performed By: #### H EMO ####[facility] (DEFAULT)[address] [place] [address] Erythrocyte distribution width (RBC) [Ratio] 13.3 % 10.9 - 14.3 % [facility] Hematocrit (Bld) [Volume fraction] 41.3 % 39.6 - 48.8 % [facility] Hemoglobin (Bld) [Mass/Vol] 13.2 g/dL Low 13.4 - 16.8 g/dL [facility] Interpretation and review of laboratory results Abnormal [facility] MCH (RBC) [Entitic mass] 27.3 pg 26.1 - 33.3 pg [facility] MCHC (RBC) [Mass/Vol] 32.0 g/dL 31.9 - 36.5 g/dL [facility] MCV (RBC) [Entitic vol] 85.5 fL 79.0 - 94.5 fL [facility] Platelet mean volume (Bld) [Entitic vol] 9.2 fL 8.7 - 12.3 fL [facility] Platelets (Bld) [#/Vol] 235 10*3/uL 146 - 337 K/uL [facility] RBC (Bld) [#/Vol] 4.83 10*6/uL [facility] WBC (Bld) [#/Vol] 4.96 10*3/uL 3.73 - 10. 10 K/uL [facility] CHEM 7 (LYTES,BUN,CREA,GLUC) on 08-30-2023 Anion gap [Moles/Vol] 14 mmol/L Normal 7-17 [place] Comment on above: Performed By: #### M MERLE CHM7, HFP ####[facility] (DEFAULT)[address] [place] [address] Chloride [Moles/Vol] 102 mmol/L Normal 98-108 [place] Comment on above: Performed By: #### Rod BLOMO CHM7, HFP ####[facility] (DEFAULT)[address] [place] [address] CO2 [Moles/Vol] 20 mmol/L Low 21-31 [facility] Comment on above: Performed By: #### Rod BLOOM CHM7, HFP ####[facility] (DEFAULT)[address] [place] [address] Creatinine [Mass/Vol] 1.56 mg/dL High 0.70-1.30 [place] Comment on above: Performed By: #### Rod BLOOM CHM7, HFP ####[facility] (DEFAULT)[address] [place] [address] GFR/1.73 sq M.predicted among non-blacks MDRD (S/P/Bld) [Vol rate/Area] 53 mL/min/{1.73_m2} Low >=60 [place] Comment on above: Result Comment: Repo rted eGFR is based on the CKD-EPI 2020 equation using creatinine, age, and sex. Performed By: #### NATHANIEL RAMÍREZ, HFP ####[facility] (DEFAULT)[address] [place] [address] Glucose [Mass/Vol] 123 mg/dL High 70-99 [facility] Comment on above: Performed By: #### NATHANIEL RAMÍREZ, HFP ####[facility] (DEFAULT)[address] [place] [address] Osmolality [Osmolality] 281 mosm/kg Normal 278-305 [place] Comment on above: Performed By: #### NATHANIEL RAMÍREZ, HFP ####[facility] (DEFAULT)[address] [place] [address] Potassium [Moles/Vol] 4.3 mmol/L Normal 3.5-5.0 [place] Comment on above: Performed By: #### NATHANIEL RAMÍREZ, HFP ####[facility] (DEFAULT)[address] [place] [address] Sodium [Moles/Vol] 132 mmol/L Low 135-145 [facility] Comment on above: Performed By: #### NATHANIEL RAMÍREZ, HFP ####[facility] (DEFAULT)[address] [place] [address] Urea nitrogen [Mass/Vol] 16 mg/dL Normal 7-25 [place] Comment on above: Performed By: #### NATHANIEL RAMÍREZ, HFP ####[facility] (DEFAULT)[address] [place] [address] Urea nitrogen/Creatinine [Mass ratio] 10 mg/mg Normal [place] Comment on above: Performed By: #### TJ RAMÍREZ7, HFP ####[facility] (DEFAULT)[address] [place] [address] Anion gap [Moles/Vol] 14 mmol/L 7 - 17 mmol/L [facility] Chloride [Moles/Vol] 102 mmol/L 98 - 10 8 mmol/L [facility] CO2 [Moles/Vol] 20 mmol/L Low 21 - 31 mmol/L [facility] Creatinine [Mass/Vol] 1.56 mg/dL High 0.70 - 1.30 mg/dL [facility] eGFR, CKD-EPI, Male 54 Low - PINF [facility] Glucose [Mass/Vol] 123 mg/dL High 70 - 99 mg/dL [facility] Osmolality Calc [Osmolality] 281 [facility] Potassium [Moles/Vol] 4.3 mmol/L 3.5 - 5.0 mmol/L [facility] Sodium [Moles/Vol] 132 mmol/L Low 135 - 145 mmol/L [facility] Urea nitrogen [Mass/Vol] 16 mg/dL 7 - 25 mg/dL [facility] Urea nitrogen/Creatinine [Mass ratio] 10 mg/mg [facility] EXTRA MICROon 08-30-2023 [facility] HEPATIC FUNCTION PANELon Albumin [Mass/Vol] 3.7 g/dL Normal 3.5-5.0 [facility] Comment on above: Performed By: #### M NATHANIEL BLOOM, HFP ####[facility] (DEFAULT)[address] [place] [address] ALP [Catalytic activity/Vol] 115 U/L Normal 32-126 [place] Comment on above: Performed By: #### NATHANIEL RAMÍREZ, HFP ####[facility] (DEFAULT)[address] [place] [address] ALT [Catalytic activity/Vol] 22 U/L Normal 10-52 [place] Comment on above: Performed By: #### M GO, CHM7, HFP ####[facility] (DEFAULT)[address] [place] [address] AST [Catalytic activity/Vol] 34 U/L Normal 10-39 [place] Comment on above: Performed By: #### M MERLE CHM7, HFP ####[facility] (DEFAULT)[address] [place] [address] Bilirubin [Mass/Vol] 1.2 mg/dL Normal <1.5 [place] Comment on above: Performed By: #### M MERLE CHM7, HFP ####[facility] (DEFAULT)[address] [place] [address] Bilirubin.indirect [Mass/Vol] 0.3 mg/dL High <0.3 [place] Comment on above: Performed By: #### Rod BLOOM CHM7, HFP ####[facility] (DEFAULT)[address] [place] [address] Protein [Mass/Vol] 7.7 g/dL Normal 6.4-8.3 [facility] Comment on above: Performed By: #### Rod BLOOM CHM7, HFP ####[facility] (DEFAULT)[address] [place] [address] Albumin [Mass/Vol] 3.7 g/dL 3.5 - 5.0 g/dL [facility] ALP [Catalytic activity/Vol] 115 U/L 32 - 126 U/L [facility] ALT [Catalytic activity/Vol] 22 U/L 10 - 52 U/L [facility] AST [Catalytic activity/Vol] 34 U/L 10 - 39 U/L [facility] Bilirubin [Mass/Vol] 1.2 mg/dL NINF - 1.5 mg/dL [facility] Bilirubin.direct [Mass/Vol] 0.3 mg/dL High NINF - 0.3 mg/dL [facility] Protein [Mass/Vol] 7.7 g/dL 6.4 - 8.3 g/dL [facility] MAGNESIUMon 08-30-2023 Magnesium [Mass/Vol] 1.8 mg/dL Normal 1.6-2.6 [place] Comment on above: Performed By: #### M MERLE, CHM7, [facility] ####[facility] (DEFAULT)[address] [place] [address] Interpretation and review of laboratory results Normal [facility] Magnesium [Mass/Vol] 1.8 mg/dL 1.6 - 2 .6 mg/dL [facility] No Panel Informationon 08-30 Interpretation and review of laboratory results Abnormal [facility] CBC,PLATELETSon 08-29-2023 Hematocrit (Bld) [Volume fraction] 37.6 % Low 39.6-48.8 [place] Comment on above: Performed By: #### H [facility] ####[facility] (DEFAULT)[address] [place] [address] Hemoglobin (Bld) [Mass/Vol] 12.2 g/dL Low 13.4-16.8 [place] Comment on above: Performed By: #### H [facility] ####[facility] (DEFAULT)[address] [place] [address] MCV (RBC) [Entitic vol] 85.1 fL Normal 79.0-94.5 [place] Comment on above: Performed By: #### H EMOGC ####[facility] (DEFAULT)[address] [place] [address] Mean Cell Hgb 27.6 pg Normal 26.1-33.3 [place] Comment on above: Performed By: #### H EMOGC ####[facility] (DEFAULT)[address] [place] [address] Mean Cell Hgb Conc 32.4 g/dL Normal 31.9-36.5 [facility] Comment on above: Performed By: #### H EMOGC ####[facility] (DEFAULT)[address] [facility] [place] [address] Platelet mean volume (Bld) [Entitic vol] 9.4 fL Normal 8.7-12.3 [place] Comment on above: Performed By: #### H EMO ####[facility] (DEFAULT)[address] [facility] [place] [address] Platelets (Bld) [#/Vol] 233 10*3/uL Normal 146-337 [place] Comment on above: Performed By: #### H EMO ####[facility] (DEFAULT)[address] [place] [address] RBC (Bld) [#/Vol] 4.42 10*6/uL Normal 4.38-5.83 [place] Comment on above: Performed By: #### H EMO ####[facility] (DEFAULT)[address] [place] [address] RBC Distribution 13.4 % Normal 10.9-14.[address] [facility] Comment on above: Performed By: #### H EMO ####[facility] (DEFAULT)[address] [place] [address] WBC (Bld) [#/Vol] 4.92 10*3/uL Normal 3.73-10.10 [place] Comment on above: Performed By: #### H EMO ####[facility] (DEFAULT)[address] [place] [address] Erythrocyte distribution width (RBC) [Ratio] 13.4 % 10.9 - 14.3 % [facility] Hematocrit (Bld) [Volume fraction] 37.6 % Low 39.6 - 48.8 % [facility] Hemoglobin (Bld) [Mass/Vol] 12.2 g/dL Low 13.4 - 16.8 g/dL [facility] Interpretation and review of laboratory results Abnormal [facility] MCH (RBC) [Entitic mass] 27.6 pg 26.1 - 33.3 pg [facility] MCHC (RBC) [Mass/Vol] 32.4 g/dL 31.9 - 36.5 g/dL [facility] MCV (RBC) [Entitic vol] 85.1 fL 79.0 - 94.5 fL [facility] Platelet mean volume (Bld) [Entitic vol] 9.4 fL 8.7 - 12.3 fL [facility] Platelets (Bld) [#/Vol] 233 10*3/uL 146 - 337 K/uL [facility] RBC (Bld) [#/Vol] 4.42 10*6/uL [facility] WBC (Bld) [#/Vol] 4.92 10*3/uL 3.73 - 10. 10 K/uL [facility] CHEM 7 (LYTES,BUN,CREA,GLUC) on 08-29-2023 Anion gap [Moles/Vol] 13 mmol/L Normal 7-17 [place] Comment on above: Performed By: #### M GO, CHM7, GGTB, HFP ####[facility] (DEFAULT)[address] [place] [address] Chloride [Moles/Vol] 105 mmol/L Normal 98-108 [place] Comment on above: Performed By: #### M GO, CHM7, GGTB, HFP ####[facility] (DEFAULT)[address] [place] [address] CO2 [Moles/Vol] 20 mmol/L Low 21-31 [facility] Comment on above: Performed By: #### M GO, CHM7, GGTB, HFP ####[facility] (DEFAULT)[address] [place] [address] Creatinine [Mass/Vol] 1.55 mg/dL High 0.70-1.30 [place] Comment on above: Performed By: #### M GO, CHM7, GGTB, HFP ####[facility] (DEFAULT)[address] [place] [address] GFR/1.73 sq M.predicted among non-blacks MDRD (S/P/Bld) [Vol rate/Area] 54 mL/min/{1.73_m2} Low >=60 [place] Comment on above: Result Comment: Repo rted eGFR is based on the CKD-EPI 2020 equation using creatinine, age, and sex. Performed By: #### M GO, CHM7, GGTB, HFP ####[facility] (DEFAULT)[address] [place] [address] Glucose [Mass/Vol] 108 mg/dL High 70-99 [facility] Comment on above: Performed By: #### M GO, CHM7, GGTB, HFP ####[facility] (DEFAULT)[address] [facility] [address] Osmolality [Osmolality] 283 mosm/kg Normal 278-305 [place] Comment on above: Performed By: #### M GO, CHM7, GGTB, HFP ####[facility] (DEFAULT)[address] [place] [address] Potassium [Moles/Vol] 4.5 mmol/L Normal 3.5-5.0 [place] Comment on above: Performed By: #### M GO, CHM7, GGTB, HFP ####[facility] (DEFAULT)[address] [place] [address] Sodium [Moles/Vol] 133 mmol/L Low 135-145 [facility] Comment on above: Performed By: #### M GO, CHM7, GGTB, HFP ####[facility] (DEFAULT)[address] [place] [address] Urea nitrogen [Mass/Vol] 19 mg/dL Normal 7-25 [place] Comment on above: Performed By: #### M GO, CHM7, GGTB, HFP ####[facility] (DEFAULT)[address] [place] [address] Urea nitrogen/Creatinine [Mass ratio] 12 mg/mg Normal [place] Comment on above: Performed By: #### M NATHANIEL BLOOM, GGTB, HFP ####[facility] (DEFAULT)[address] [place] [address] Anion gap [Moles/Vol] 13 mmol/L 7 - 17 mmol/L [facility] Chloride [Moles/Vol] 105 mmol/L 98 - 10 8 mmol/L [facility] CO2 [Moles/Vol] 20 mmol/L Low 21 - 31 mmol/L [facility] Creatinine [Mass/Vol] 1.55 mg/dL High 0.70 - 1.30 mg/dL [facility] eGFR, CKD-EPI, Male 55 Low - [facility]F [facility] Glucose [Mass/Vol] 108 mg/dL High 70 - 99 mg/dL [facility] Osmolality Calc [Osmolality] 283 [facility] Potassium [Moles/Vol] 4.5 mmol/L 3.5 - 5.0 mmol/L [facility] Sodium [Moles/Vol] 133 mmol/L Low 135 - 145 mmol/L [facility] Urea nitrogen [Mass/Vol] 19 mg/dL 7 - 25 mg/dL [facility] Urea nitrogen/Creatinine [Mass ratio] 12 mg/mg [facility] GGTon 08-29-2023 Gamma glutamyl transferase [Catalytic activity/Vol] 64 U/L 8 - 64 U/L [facility] Interpretation and review of laboratory results Normal [facility] Gamma glutamyl transferase [Catalytic activity/Vol] 64 U/L Normal 8-64 [place] Comment on above: Performed By: #### M NATHANIEL BLOOM, GGTB, HFP ####[facility] (DEFAULT)[address] [place] [address] HEPATIC FUNCTION PANELon Albumin [Mass/Vol] 3.3 g/dL Low 3.5-5.0 [facility] Comment on above: Performed By: #### M GO, CHM7, GGTB, HFP ####[facility] (DEFAULT)[address] [place] [address] ALP [Catalytic activity/Vol] 103 U/L Normal 32-126 [place] Comment on above: Performed By: #### M GO, CHM7, GGTB, HFP ####[facility] (DEFAULT)[address] [place] [address] ALT [Catalytic activity/Vol] 18 U/L Normal 10-52 [place] Comment on above: Performed By: #### M GO, CHM7, GGTB, HFP ####[facility] (DEFAULT)[address] [place] [address] AST [Catalytic activity/Vol] 27 U/L Normal 10-39 [place] Comment on above: Performed By: #### M GO, CHM7, GGTB, HFP ####[facility] (DEFAULT)[address] [place] [address] Bilirubin [Mass/Vol] 1.1 mg/dL Normal <1.5 [place] Comment on above: Performed By: #### M GO, CHM7, GGTB, HFP ####[facility] (DEFAULT)[address] [place] [address] Bilirubin.indirect [Mass/Vol] 0.3 mg/dL High <0.3 [place] Comment on above: Performed By: #### M GO, CHM7, GGTB, HFP ####[facility] (DEFAULT)[address] [place] [address] Protein [Mass/Vol] 6.8 g/dL Normal 6.4-8.3 [facility] Comment on above: Performed By: #### M GO, CHM7, GGTB, HFP ####[facility] (DEFAULT)[address] [place] [address] Albumin [Mass/Vol] 3.3 g/dL Low 3.5 - 5.0 g/dL [facility] ALP [Catalytic activity/Vol] 103 U/L 32 - 126 U/L [facility] ALT [Catalytic activity/Vol] 18 U/L 10 - 52 U/L [facility] AST [Catalytic activity/Vol] 27 U/L 10 - 39 U/L [facility] Bilirubin [Mass/Vol] 1.1 mg[facility]/dL [facility] Bilirubin.direct [Mass/Vol] 0.3 mg/dL High NINF - 0.3 mg/dL [facility] Protein [Mass/Vol] 6.8 g/dL 6.4 - 8.3 g/dL [facility] HISTOPLASMA AND BLASTOMYCES ANTIGEN, ENZYME IMMUNOASSAY, SERMon 08-29-2023 Histoplasma/Blastomy antonia Ag Result Detected Invalid Interpretation Code Not Detected [place] Comment on above: Result Comment: Anti gen from Histoplasma or Blastomyces (unable todifferentiate) detected. Result should be correlated withclinical presentation, exposure history, and otherdiagnostic procedures, including culture, serology,histopathology, and/or radiographic findings, to aid in thedifferentiation between histoplasmosis and blastomycosis.CRITICAL RESULT Performed By: #### H IBAG ####[facility] (DEFAULT)[address] [place] [address] Histoplasma/Blastomy antonia Ag Value 5.3 ng/mL Normal [place] Comment on above: Result Comment: ---- ADDITIONAL INFORMATION This test was developed and its performance characteristicsdetermined by [facility] in a manner consistent with CLIArequirements. This test has not been cleared or approved bythe U.S. Food and Drug Administration.Test Performed by:[facility] - [address] [address] Director: Rosendo Bose M.D. Ph.D.; CLIA# [id number] Performed By: #### H IBAG ####[facility] (DEFAULT)[address] [place] [address], [place] [address] HISTOPLASMA ANTIGEN,URINEon 08-29-2023 HISTOPLASM AG, URINE Not detected Normal Not Detected [place] Comment on above: Result Comment: No H istoplasma antigen detected.False negative results may occur. Repeat testing on anew specimen should be considered if clinically indicated. Performed By: #### Y HISTG ####[facility] (DEFAULT)[address] [place] [address], [place] [address] Histoplasma Ag Value Not detected Normal [facility] Comment on above: Result Comment: ---- ADDITIONAL INFORMATION This test has been modified from the scientific software developer'sinstructions. Its performance characteristics weredetermined by [facility] in a manner consistent withCLIA requirements. This test has not been cleared orapproved by the U.S. Food and Drug Administration.Test Performed by:[address] Director: Rosendo Bose M.D. Ph.D.; CLIA# [id number] Performed By: #### Y HISTG ####[facility] (DEFAULT)[address] [place] [address] MAGNESIUMon 08-29-2023 Magnesium [Mass/Vol] 1.7 mg/dL Normal 1.6-2.6 [place] Comment on above: Performed By: #### M GO, CHM7, GGTB, HFP ####[facility] (DEFAULT)[address] [place] [address] Interpretation and review of laboratory results Normal [facility] Magnesium [Mass/Vol] 1.7 mg/dL 1.6 - 2 .6 mg/dL [facility] No Panel Informationon 08-29 Interpretation and review of laboratory results Abnormal [facility] PT,INR,PTTon 08-29-2023 aPTT Coag (Bld) [Time] 29.3 s Normal 24.0-34.3 [place] Comment on above: Performed By: #### P TPTT ####[facility] (DEFAULT)[address] [place] [address] INR Coag (PPP) [Relative time] 1.1 {INR} Normal 0.9-1.1 [place] Comment on above: Performed By: #### P TPTT ####[facility] (DEFAULT)[address] [facility] [place] [address] PT Coag (PPP) [Time] 13.8 s Normal 11.9-14.2 [place] Comment on above: Performed By: #### P TPTT ####[facility] (DEFAULT)[address] [place] [address] aPTT Coag (PPP) [Time] 29.3 s [facility] INR Coag (Bld) [Relative time] 1.1 {INR} 0.9 - 1.1 [facility] Interpretation and review of laboratory results Normal [facility] PT Coag (PPP) [Time] 13.8 s [facility] Portable XR Chest Viewson RADIOLOGY RADIOLOGY [facility] Portable XR Chest ViewsOrder ed By: Gerald Baer on 08-29-2023 [facility] Work Phone: TACROLIMUS LEVEL, TROUGH ([place] E DRUG LEVEL)on 08-29-2023 Interpretation and review of laboratory results Normal [facility] Tacrolimus (Bld) [Mass/Vol] 8.9 ng/mL [facility] Tacrolimus, Trough 8.9 ng/mL Normal Bone Susana ow Transplant: 4.0-12.0, Therapeutic: 5.0-15.0 [place] Comment on above: Order Comment: Pleas e draw at specified interval PRIOR to dose. Do not hold dose to wait for level. Specimens batched twice per day, (M-F) and once per day weekendsMethod performed is a chemiluminescent microparticle immunoasssay on the [employer] i2000.The range is based on experience at [facility] and users should be aware that target concentrations vary widely depending on concomitant therapy, time post-transplant, and desired degree of immunosuppression. Performed By: #### T ACRO ####[facility] (DEFAULT)[address] [place] [address] Tacrolimus, Trough 8.7 ng/mL Normal [facility] ow Transplant: 4.0-12.0, Therapeutic: 5.0-15.0 [place] Comment on above: Order Comment: Pleas e draw at specified interval PRIOR to dose. Do not hold dose to wait for level. Specimens batched twice per day, (M-F) and once per day weekendsMethod performed is a chemiluminescent microparticle immunoasssay on the [employer] i2000.The range is based on experience at [facility] and users should be aware that target concentrations vary widely depending on concomitant therapy, time post-transplant, and desired degree of immunosuppression. Performed By: #### T ACRO ####[facility] (DEFAULT)[address] [place] [address] TACROLIMUS LEVEL, TROUGH ([place] E DRUG LEVEL)Ordered By: Roxanne Louie on 08-29-2023 Interpretation and review of laboratory results Normal [facility] Tacrolimus (Bld) [Mass/Vol] 8.7 ng/mL [facility] URINALYSIS REFLEX TO CULTURE PERFORMABLEon 08-29-2023 Appearance (U) Clear Normal Clear [place] Comment on above: Order Comment: For i ndwelling catheters, specimen collection is acceptable on catheter day 1 and 2 only. ? Performed By: #### U [id number] ####[facility] (DEFAULT)[address] [place] [address] Bacteria ABSENT Normal ABSENT [place] Comment on above: Order Comment: For i ndwelling catheters, specimen collection is acceptable on catheter day 1 and 2 only. ? Performed By: #### U [id number] ####[facility] (DEFAULT)[address] [place] [address] Blood Urine Trace Abnormal Negative [place] Comment on above: Order Comment: For i ndwelling catheters, specimen collection is acceptable on catheter day 1 and 2 only. ? Performed By: #### U [id number] ####[facility] (DEFAULT)[address] [facility] [address] Calcium Oxalate Crystals PRESENT Normal [place] Comment on above: Order Comment: For i ndwelling catheters, specimen collection is acceptable on catheter day 1 and 2 only. ? Performed By: #### U [id number] ####[facility] (DEFAULT)[address] [facility] [place] [address] Color (U) Yellow Normal Yellow [place] Comment on above: Order Comment: For i ndwelling catheters, specimen collection is acceptable on catheter day 1 and 2 only. ? Performed By: #### U [id number] ####[facility] (DEFAULT)[address] [facility] [address] Glucose Ql (U) Negative Normal Negative [place] Comment on above: Order Comment: For i ndwelling catheters, specimen collection is acceptable on catheter day 1 and 2 only. ? Performed By: #### U [id number] ####[facility] (DEFAULT)[address] [facility] [place] [address] Ketones Ql (U) Negative Normal Negative [place] Comment on above: Order Comment: For i ndwelling catheters, specimen collection is acceptable on catheter day 1 and 2 only. ? Performed By: #### U [id number] ####[facility] (DEFAULT)[address] [facility] [place] [address] Leukocyte esterase Test strip Ql (U) Negative Normal Negative [place] Comment on above: Order Comment: For i ndwelling catheters, specimen collection is acceptable on catheter day 1 and 2 only. ? Performed By: #### U [id number] ####[facility] (DEFAULT)[address] [place] [address] Nitrites Urine Negative Normal Negative [place] Comment on above: Order Comment: For i ndwelling catheters, specimen collection is acceptable on catheter day 1 and 2 only. ? Performed By: #### U [id number] ####[facility] (DEFAULT)[address] [facility] [place] [address] pH (U) 6.0 [pH] Normal 5.0-7.0 [place] Comment on above: Order Comment: For i ndwelling catheters, specimen collection is acceptable on catheter day 1 and 2 only. ? Performed By: #### U [id number] ####[facility] (DEFAULT)[address] [place] [address] Protein Urine Negative Normal Negative [place] Comment on above: Order Comment: For i ndwelling catheters, specimen collection is acceptable on catheter day 1 and 2 only. ? Performed By: #### U [id number] ####[facility] (DEFAULT)[address] [place], [place] [address], [place] [address] RBC Urine 3-5 Abnormal 0-2 [place] Comment on above: Order Comment: For i ndwelling catheters, specimen collection is acceptable on catheter day 1 and 2 only. ? Performed By: #### U [id number] ####[facility] (DEFAULT)[address] [place], [place] [address], [place] [address] Specific [place] Urine 1.015 Normal 1.001-1.035 [place] Comment on above: Order Comment: For i ndwelling catheters, specimen collection is acceptable on catheter day 1 and 2 only. ? Performed By: #### U [id number] ####[facility] (DEFAULT)[address] [place] [address] Squamous/Epithelial Cells 0-2/hpf Normal 0-2/hpf, 3-5/hpf = 1+ [place] Comment on above: Order Comment: For i ndwelling catheters, specimen collection is acceptable on catheter day 1 and 2 only. ? Performed By: #### U [id number] ####[facility] (DEFAULT)[address] [place] [address] Urobilinogen Urine 1.0 E.U./dL Normal 0.2 E.U/d L, 1.0 E.U/dL [place] Comment on above: Order Comment: For i ndwelling catheters, specimen collection is acceptable on catheter day 1 and 2 only. ? Performed By: #### U [id number] ####[facility] (DEFAULT)[address] [place] [address] WBC Urine 0 - 5 Normal 0 - 5 [place] Comment on above: Order Comment: For i ndwelling catheters, specimen collection is acceptable on catheter day 1 and 2 only. ? Performed By: #### U [id number] ####[facility] (DEFAULT)[address] [place] [address] URINALYSIS REFLEX TO CULTURE PERFORMABLEOrdered By: Shaji Kelly on 08-29-2023 Appearance (U) Clear Clear U [facility] Bacteria LM Ql (Urine sed) ABSENT ABSENT [facility] Calcium Oxalate Crystals PRESENT [facility] Color (U) Yellow Yellow U [facility] Epithelial cells.squamous LM Ql (Urine sed) 0-2/hpf 0-2/hpf, 3-5/hpf = 1+ [facility] Glucose Test strip (U) [Mass/Vol] Negative Negative [facility] Interpretation and review of laboratory results Abnormal [facility] Ketones (U) [Mass/Vol] Negative Negative [facility] Leukocyte esterase Test strip Ql (U) Negative [facility] Nitrite Ql (U) Negative Negative [facility] pH (U) 6.0 [pH] 5.0 - 7.0 [facility] Protein (U) [Mass/Vol] Negative Negative [facility] RBC (U) [#/Vol] Trace Abnormal Negative [facility] RBC LM.HPF (Urine sed) [#/Area] 3-5 Abnormal [facility] Specific gravity (U) [Rel density] 1.015 1.001 - 1.035 [facility] Urobilinogen (U) [Mass/Vol] 1.0 E.U./dL 0.2 E.U/dL, 1.0 E.U/dL [facility] WBC LM.HPF (Urine sed) [#/Area] 0 - 5 [facility] C[facility]on 08-29-2023 Bacteria identified Cx Nom (U) No Growth Normal [place] Comment on above: Order Comment: For i ndwelling catheters, specimen collection is acceptable on catheter day 1 and 2 only. Sung top vacutainer. Urine must be to the fill line to process (4mls). If minimum volume, send urine in a yellow top vacutainer tube. Performed By: #### U R ####[facility] (DEFAULT)[address] [place] [address] US RENAL TRANSPLANT SCANon 0 08-29-2023 US RENAL TRANSPLANT SCAN Normal [place] US for transplanted kidney l imitedon 08-29-2023 RADIOLOGY RADIOLOGY [facility] Radiology Study observation (narrative) [facility] US for transplanted kidney l imitedOrdered By: Romana Matias on 08-29-2023 [facility] Work Phone: XR CHEST PORTABLEon 08-29-20 23 XR CHEST PORTABLE Normal [facility] BLOOD CULTUREon 08-28-2023 Bacteria identified Cx Nom (Unsp spec) NO GROWTH DAY 5 OF [address] [facility] Comment on above: Order Comment: [...] then anaerobic Performed By: #### B LDCULT ####[facility] (DEFAULT)[address] [place] [address] Bacteria identified Cx Nom (Unsp spec) NO GROWTH DAY 5 OF [address] [facility] Comment on above: Order Comment: [...] anaerobic Performed By: #### B LDCULT ####[facility] (DEFAULT)[address] [place] [address] DARYL AURIS SCREEN BY PCRo n 08-28-2023 Daryl auris Screen by PCR Not detected Normal Not Detected [place] Comment on above: Order Comment: This test was performed using a real-time PCR assay. This test was developed, and its performance characteristics determined by [facility] [place]. It has not been cleared or approved by the FDA. The laboratory is regulated under CLIA as qualified to perform high-complexity testing. This test is used for clinical purposes. It should not be regarded as investigational or for research. Performed By: #### C ANDIDA AURIS SCREEN BY PCR ####[facility] (DEFAULT)[address] [place] [address] CBC AND ELECTRONIC DIFFon Abs Baso Auto < Normal 0.00-0.09 [place] Comment on above: Performed By: #### L [id number] ####[facility] (DEFAULT)[address] [place] [address] Basophils/100 WBC (Bld) 0.6 % Normal [place] Comment on above: Performed By: #### L [id number] ####[facility] (DEFAULT)[address] [place] [address] DIFF STATUS Electronic Differential Normal [place] Comment on above: Performed By: #### L [id number] ####[facility] (DEFAULT)[address] [place] [address] Eosinophils (Bld) [#/Vol] 0.10 10*3/uL Normal 0.00-0.48 [place] Comment on above: Performed By: #### L [id number] ####[facility] (DEFAULT)[address] [place] [address] Eosinophils/100 WBC (Bld) 2.1 % Normal [place] Comment on above: Performed By: #### L [id number] ####[facility] (DEFAULT)[address] [place] [address] Hematocrit (Bld) [Volume fraction] 37.9 % Low 39.6-48.8 [place] Comment on above: Performed By: #### L [id number] ####[facility] (DEFAULT)[address] [facility] [place] [address] Hemoglobin (Bld) [Mass/Vol] 12.4 g/dL Low 13.4-16.8 [place] Comment on above: Performed By: #### L [id number] ####[facility] (DEFAULT)[address] [facility] [place] [address] Immature Grans % 0.6 % Normal [facility] Comment on above: Performed By: #### L [id number] ####[facility] (DEFAULT)[address] [facility] [place] [address] Immature Grans Absolute < Normal <=0.07 [place] Comment on above: Performed By: #### L [id number] ####[facility] (DEFAULT)[address] [place] [address] Lymphocytes (Bld) [#/Vol] 1.76 10*3/uL Normal 0.83-3.57 [place] Comment on above: Performed By: #### L [id number] ####[facility] (DEFAULT)[address] [facility] [place] [address] Lymphocytes/100 WBC (Bld) 37.1 % Normal [place] Comment on above: Performed By: #### L [id number] ####[facility] (DEFAULT)[address] [facility] [place] [address] MCV (RBC) [Entitic vol] 85.0 fL Normal 79.0-94.5 [place] Comment on above: Performed By: #### L [id number] ####[facility] (DEFAULT)[address] [facility] [place] [address] Mean Cell Hgb 27.8 pg Normal 26.1-33.3 [place] Comment on above: Performed By: #### L [id number] ####[facility] (DEFAULT)[address] [facility] [place] [address] Mean Cell Hgb Conc 32.7 g/dL Normal 31.9-36.5 [facility] Comment on above: Performed By: #### L [id number] ####[facility] (DEFAULT)[address] [facility] [place] [address] Monocytes (Bld) [#/Vol] 0.66 10*3/uL Normal 0.24-0.93 [place] Comment on above: Performed By: #### L [id number] ####[facility] (DEFAULT)[address] [facility] [place] [address] Monocytes/100 WBC (Bld) 13.9 % Normal [place] Comment on above: Performed By: #### L [id number] ####[facility] (DEFAULT)[address] [place] [address] Nucleated RBC 0.0 /100 WBC Normal <=0.2 [facility] Comment on above: Performed By: #### L [id number] ####[facility] (DEFAULT)[address] [facility] [place] [address] Platelet mean volume (Bld) [Entitic vol] 9.3 fL Normal 8.7-12.3 [place] Comment on above: Performed By: #### L [id number] ####[facility] (DEFAULT)[address] [place] [address] Platelets (Bld) [#/Vol] 262 10*3/uL Normal 146-337 [place] Comment on above: Performed By: #### L [id number] ####[facility] (DEFAULT)[address] [place] [address] RBC (Bld) [#/Vol] 4.46 10*6/uL Normal 4.38-5.83 [place] Comment on above: Performed By: #### L [id number] ####[facility] (DEFAULT)[address] [place] [address] RBC Distribution 13.4 % Normal 10.9-14.[address] [facility] Comment on above: Performed By: #### L [id number] ####[facility] (DEFAULT)[address] [place] [address] Segs + Bands Auto 45.7 % Normal [facility] Comment on above: Performed By: #### L [id number] ####[facility] (DEFAULT)[address] [place] [address] Segs + Bands,Absolute Auto 2.16 K/uL Normal 1.57-6.19 [place] Comment on above: Performed By: #### L [id number] ####[facility] (DEFAULT)[address] [place] [address] WBC (Bld) [#/Vol] 4.74 10*3/uL Normal 3.73-10.10 [place] Comment on above: Performed By: #### L [id number] ####[facility] (DEFAULT)[address] [place] [address] Basophils (Bld) [#/Vol] K/uL 0.00 - 0.09 K/uL [facility] Basophils/100 WBC (Bld) 0.6 % [facility] Differential cell count method Nom (Bld) Electronic Differential [facility] Eosinophils (Bld) [#/Vol] 0.10 10*3/uL 0.00 - 0.48 K/uL [facility] Eosinophils/100 WBC (Bld) 2.1 % [facility] Erythrocyte distribution width (RBC) [Ratio] 13.4 % 10.9 - 14.3 % [facility] Hematocrit (Bld) [Volume fraction] 37.9 % Low 39.6 - 48.8 % [facility] Hemoglobin (Bld) [Mass/Vol] 12.4 g/dL Low 13.4 - 16.8 g/dL [facility] Immature granulocytes (Bld) [#/Vol] K/uL NINF - 0.07 K/uL [facility] Immature granulocytes/100 WBC (Bld) 0.6 % [facility] Interpretation and review of laboratory results Abnormal [facility] Lymphocytes (Bld) [#/Vol] 1.76 10*3/uL 0.83 - 3.57 K/uL [facility] Lymphocytes/100 WBC (Bld) 37.1 % [facility] MCH (RBC) [Entitic mass] 27.8 pg 26.1 - 33.3 pg [facility] MCHC (RBC) [Mass/Vol] 32.7 g/dL 31.9 - 36.5 g/dL [facility] MCV (RBC) [Entitic vol] 85.0 fL 79.0 - 94.5 fL [facility] Monocytes (Bld) [#/Vol] 0.66 10*3/uL 0.24 - 0.93 K/uL [facility] Monocytes/100 WBC (Bld) 13.9 % [facility] Neutrophils (Bld) [#/Vol] 2.16 10*3/uL 1.57 - 6.19 K/uL [facility] Nucleated RBC/100 WBC (Bld) [Ratio] 0.0 % [facility] Platelet mean volume (Bld) [Entitic vol] 9.3 fL 8.7 - 12.3 fL [facility] Platelets (Bld) [#/Vol] 262 10*3/uL 146 - 337 K/uL [facility] RBC (Bld) [#/Vol] 4.46 10*6/uL [facility] Segmented neutrophils/100 WBC (Bld) 45.7 % [facility] WBC (Bld) [#/Vol] 4.74 10*3/uL 3.73 - 10. 10 K/uL [facility] CHEM 6 (LYTES, BUN CREA)on 0 08-28-2023 Anion gap [Moles/Vol] 13 mmol/L Normal 7-17 [place] Comment on above: Performed By: #### C HM6 ####[facility] (DEFAULT)[address] [place] [address] Chloride [Moles/Vol] 103 mmol/L Normal 98-108 [place] Comment on above: Performed By: #### C HM6 ####[facility] (DEFAULT)[address] [place] [address] CO2 [Moles/Vol] 22 mmol/L Normal 21-31 [facility] Comment on above: Performed By: #### C HM6 ####[facility] (DEFAULT)[address] [place] [address] Creatinine [Mass/Vol] 1.62 mg/dL High 0.70-1.30 [place] Comment on above: Performed By: #### C HM6 ####[facility] (DEFAULT)[address] [place] [address] GFR/1.73 sq M.predicted among non-blacks MDRD (S/P/Bld) [Vol rate/Area] 51 mL/min/{1.73_m2} Low >=60 [place] Comment on above: Result Comment: Repo rted eGFR is based on the CKD-EPI 2020 equation using creatinine, age, and sex. Performed By: #### C HM6 ####[facility] (DEFAULT)[address] [facility] [place] [address] Potassium [Moles/Vol] 4.3 mmol/L Normal 3.5-5.0 [place] Comment on above: Performed By: #### C HM6 ####[facility] (DEFAULT)[address] [place] [address] Sodium [Moles/Vol] 134 mmol/L Low 135-145 [facility] Comment on above: Performed By: #### C HM6 ####[facility] (DEFAULT)[address] [facility] [place] [address] Urea nitrogen [Mass/Vol] 22 mg/dL Normal 7-25 [place] Comment on above: Performed By: #### C HM6 ####[facility] (DEFAULT)[address] [facility] [place] [address] Urea nitrogen/Creatinine [Mass ratio] 14 mg/mg Normal [place] Comment on above: Performed By: #### C HM6 ####[facility] (DEFAULT)[address] [place] [address] Anion gap [Moles/Vol] 13 mmol/L 7 - 17 mmol/L [facility] Chloride [Moles/Vol] 103 mmol/L 98 - 10 8 mmol/L [facility] CO2 [Moles/Vol] 22 mmol/L 21 - 31 mmol/L [facility] Creatinine [Mass/Vol] 1.62 mg/dL High 0.70 - 1.30 mg/dL [facility] eGFR, CKD-EPI, Male 51 Low - PINF [facility] Interpretation and review of laboratory results Abnormal [facility] Potassium [Moles/Vol] 4.3 mmol/L 3.5 - 5.0 mmol/L [facility] Sodium [Moles/Vol] 134 mmol/L Low 135 - 145 mmol/L [facility] Urea nitrogen [Mass/Vol] 22 mg/dL 7 - 25 mg/dL [facility] Urea nitrogen/Creatinine [Mass ratio] 14 mg/mg [facility] IMMUNOCOMPROMISED RESPIRATOR Y PANELon 08-28-2023 Adenovirus - Pcr Not detected Normal Not Detected [place] Comment on above: Order Comment: Viral transport [...] acid assay. Performed By: #### I CRESP ####[facility] (DEFAULT)[address] [place] [address] Bordetella Parapertussis Not detected Normal Not Detected [place] Comment on above: Order Comment: Viral transport [...] acid assay. Performed By: #### I CRESP ####[facility] (DEFAULT)[address] [place] [address] Bordetella Pertussis Not detected Normal Not Detected [place] Comment on above: Order Comment: Viral transport [...] acid assay. Performed By: #### I CRESP ####[facility] (DEFAULT)[address] [place] [address], [place] [address] Chlamydia Pneumoniae Not detected Normal Not Detected [place] Comment on above: Order Comment: Viral transport [...] acid assay. Performed By: #### I CRESP ####[facility] (DEFAULT)[address] [place] [address], [place] [address] Coronavirus 229E Not detected Normal Not Detected [place] Comment on above: Order Comment: Viral transport [...] acid assay. Performed By: #### I CRESP ####[facility] (DEFAULT)[address] [place] [address], [place] [address] Coronavirus Hku1 Not detected Normal Not Detected [place] Comment on above: Order Comment: Viral transport [...] acid assay. Performed By: #### I CRESP ####[facility] (DEFAULT)[address] [place] [address], [place] [address] Coronavirus Nl63 Not detected Normal Not Detected [place] Comment on above: Order Comment: Viral transport [...] acid assay. Performed By: #### I CRESP ####[facility] (DEFAULT)[address] [place] [address], [place] [address] Coronavirus Oc43 Not detected Normal Not Detected [place] Comment on above: Order Comment: Viral transport [...] acid assay. Performed By: #### I CRESP ####[facility] (DEFAULT)[address] [place] [address], [place] [address] Influenza A - Pcr Not detected Normal Not Detected [facility] Comment on above: Order Comment: Viral [...] acid assay. Performed By: #### I CRESP ####[facility] (DEFAULT)[address] [place] [address] Influenza B - Pcr Not detected Normal Not Detected [facility] Comment on above: Order Comment: Viral [...] acid assay. Performed By: #### I CRESP ####[facility] (DEFAULT)[address] [place] [address], [place] [address] Metapneumovirus - Pcr Not detected Normal Not Detected [place] Comment on above: Order Comment: Viral transport [...] acid assay. Performed By: #### I CRESP ####[facility] (DEFAULT)[address] [place] [address], [place] [address] Mycoplasma Pneumoniae Not detected Normal Not Detected [place] Comment on above: Order Comment: Viral transport [...] acid assay. Performed By: #### I CRESP ####[facility] (DEFAULT)[address] [place] [address], [place] [address] Parainfluenza 1 - Pcr Not detected Normal Not Detected [place] Comment on above: Order Comment: Viral transport [...] acid assay. Performed By: #### I CRESP ####[facility] (DEFAULT)[address] [place] [address], [place] [address] Parainfluenza 2 - Pcr Not detected Normal Not Detected [place] Comment on above: Order Comment: Viral transport [...] acid assay. Performed By: #### I CRESP ####[facility] (DEFAULT)[address] [place] [address], [place] [address] Parainfluenza 3 - Pcr Not detected Normal Not Detected [place] Comment on above: Order Comment: Viral transport [...] acid assay. Performed By: #### I CRESP ####[facility] (DEFAULT)[address] [place] [address], [place] [address] Parainfluenza 4 - Pcr Not detected Normal Not Detected [place] Comment on above: Order Comment: Viral transport [...] acid assay. Performed By: #### I CRESP ####[facility] (DEFAULT)[address] [place] [address], [place] [address] Rhinovirus/Enterovir us - PCR Not detected Normal Not Detected [place] Comment on above: Order Comment: Viral transport [...] acid assay. Performed By: #### I CRESP ####[facility] (DEFAULT)[address] [place] [address], [place] [address] Rsv - Pcr Not detected Normal Not Detected [place] Comment on above: Order Comment: Viral transport [...] acid assay. Performed By: #### I CRESP ####[facility] (DEFAULT)[address] [place] [id number] SARS-CoV-2 (COVID-19) RNA ESTELITA+probe Ql (Unsp spec) Not detected Normal NOT DETECTED [place] Comment on above: Order Comment: Viral transport [...] acid assay. Performed By: #### I CRESP ####[facility] (DEFAULT)[address] [place] [id number] Portable XR Chest Viewson Radiology Study observation (narrative) [facility] Respiratory virus DNA+RNA NA A+probe Nom (Unsp spec)Ordered By: Dayami Harris on 08-28-2023 Adenovirus DNA ESTELITA+probe Nom (Unsp spec) Not detected Not Detected [facility] B. parapertussis DNA ESTELITA+probe Ql (Unsp spec) Not detected Not Detected [facility] B. pertussis DNA ESTELITA+probe Ql (Unsp spec) Not detected Not Detected [facility] C. pneumoniae DNA ESTELITA+probe Ql (Unsp spec) Not detected Not Detected [facility] FLUAV RNA ESTELITA+probe Ql (Unsp spec) Not detected Not Detected [facility] FLUBV RNA ESTELITA+probe Ql (Unsp spec) Not detected Not Detected [facility] HCoV 229E RNA ESTELITA+non-probe Ql (Nph) Not detected Not Detected [facility] HCoV HKU1 RNA ESTELITA+non-probe Ql (Nph) Not detected Not Detected [facility] HCoV NL63 RNA ESTELITA+non-probe Ql (Nph) Not detected Not Detected [facility] HCoV OC43 RNA ESTELITA+non-probe Ql (Nph) Not detected Not Detected [facility] hMPV A RNA ESTELITA+probe Ql (Unsp spec) Not detected Not Detected [facility] Interpretation and review of laboratory results Normal [facility] M. pneumoniae DNA ESTELITA+probe Ql (Unsp spec) Not detected Not Detected [facility] Parainfluenza virus 1 RNA ESTELITA+probe Ql (Unsp spec) Not detected Not Detected [facility] Parainfluenza virus 2 RNA ESTELITA+probe Ql (Unsp spec) Not detected Not Detected [facility] Parainfluenza virus 3 RNA ESTELITA+probe Ql (Unsp spec) Not detected Not Detected [facility] Parainfluenza virus 4 RNA ESTELITA+probe Ql (Unsp spec) Not detected Not Detected [facility] Rhinovirus+Enterovir us RNA ESTELITA+probe Ql (Unsp spec) Not detected Not Detected [facility] RSV RNA ESTELITA+probe Ql (Unsp spec) Not detected Not Detected [facility] SARS-CoV-2 (COVID-19) RNA ESTELITA+probe Ql (Unsp spec) Not detected NOT DETECTED [facility] ALBUMINon 04-28-2023 Albumin [Mass/Vol] 4.0 g/dL Normal 3.4-5.0 [facility] Comment on above: Performed By: #### C MP #### [facility] [address] [place] [address] Dr. Dwight Waters ALKALINE PHOSPHAon ALP [Catalytic activity/Vol] 106 U/L Normal 46-116 [facility] Comment on above: Performed By: #### F [id number] #### [facility] [address] [place] [address] Dr. Dwight Waters BILIRUBIN CONJUGATED (DIRECT )on 04-28-2023 BILI, CONJUGATED 0.3 mg/dL Critically high 0.0-0.2 [facility] Comment on above: Performed By: #### C MP #### [facility] [address] [place] [address] Dr. Dwight Waters BILIRUBIN TOTALon 04-28-2023 Bilirubin [Mass/Vol] 1.4 mg/dL Critically high 0.2-1.0 [facility] Comment on above: Performed By: #### C MP #### [facility] [address] [place] [address] Dr. Dwight Waters BUNon 04-28-2023 Urea nitrogen [Mass/Vol] 12.0 mg/dL Normal 7.0-18.0 [facility] Comment on above: Performed By: #### U RTPCR #### [facility] [address] [place] [address] Dr. Dwight Waters CALCIUMon 04-28-2023 Calcium [Mass/Vol] 9.3 mg/dL Normal 8.5-10.1 [facility] Comment on above: Performed By: #### U RTPCR #### [facility] [address] [place] [address] Dr. Dwight Waters CBC AUTO DIFFon 04-28-2023 BASO # 0.1 103/ul Normal 0.0-0.1 [facility] Comment on above: Performed By: #### C BC #### [facility] [address] [place] [address] Dr. Dwight Waters Basophils/100 WBC (Bld) 0.9 % Normal 0.2-2.0 [facility] Comment on above: Performed By: #### C BC #### [facility] [address] [place] [address] Dr. Dwight Waters EO # 0.2 103/ul Normal 0.0-0.7 [facility] Comment on above: Performed By: #### C BC #### [facility] [address] [place] [address] Dr. Dwight Waters Eosinophils/100 WBC (Bld) 3.8 % Normal 0.9-7.0 [facility] Comment on above: Performed By: #### C BC #### [facility] [address] [place] [address] Dr. Dwight Waters Erythrocyte distribution width (RBC) [Ratio] 12.5 % Normal 11.0-15.0 [facility] Comment on above: Performed By: #### C BC #### [facility] [address] [place] [address] Dr. Dwight Waters Hematocrit (Bld) [Volume fraction] 49.8 % Normal 42.0-54.0 [facility] Comment on above: Performed By: #### C BC #### [facility] [address] [place] [address] Dr. Dwight Waters Hemoglobin (Bld) [Mass/Vol] 16.4 g/dL Normal 14.0-18.0 [facility] Comment on above: Performed By: #### C BC #### [facility] [address] [place] [address] Dr. Dwight Waters IG # 0.01 10e3/ul Normal 0.00-0.03 [facility] Comment on above: Performed By: #### C BC #### [facility] [address] [place] [address] Dr. Dwight Waters IG % 0.2 % Normal 0.0-0.5 [facility] Comment on above: Performed By: #### C BC #### [facility] [address] [place] [address] Dr. Dwight Waters LYMPH # 2.1 103/ul Normal 1.2-3.8 [facility] Comment on above: Performed By: #### C BC #### [facility] [address] [place] [address] Dr. Dwight Waters Lymphocytes/100 WBC (Bld) 39.1 % Normal 20.5-60.0 [facility] Comment on above: Performed By: #### C BC #### [facility] [address] [place] [address] Dr. Dwight Waters MANUAL DIFF REQ NO Normal [facility] Comment on above: Performed By: #### C BC #### [facility] [address] [place] [address] Dr. Dwight Waters MCH (RBC) [Entitic mass] 28.6 pg Normal 25.9-34.0 [facility] Comment on above: Performed By: #### C BC #### [facility] [address] [address] [address] Dwight Waters MCHC (RBC) [Mass/Vol] 32.9 g/dL Normal 29.9-35.2 [facility] Comment on above: Performed By: #### C BC #### [facility] [address] [place] [address] Dr. Dwight Waters MCV (RBC) [Entitic vol] 86.9 fL Normal 80.0-94.0 [facility] Comment on above: Performed By: #### C BC #### [facility] [address] [place] [address] Dr. Dwight Waters MONO # 0.6 103/ul Normal 0.3-0.8 [facility] Comment on above: Performed By: #### C BC #### [facility] [address] [place] [address] Dr. Dwight Waters Monocytes/100 WBC (Bld) 10.6 % Normal 1.7-12.0 [facility] Comment on above: Performed By: #### C BC #### [facility] [address] [place] [address] Dr. Dwight Waters NEUT # 2.5 103/ul Normal 1.4-6.5 [facility] Comment on above: Performed By: #### C BC #### [facility] [address] [place] [address] Dr. Dwight Waters Neutrophils/100 WBC (Bld) 45.4 % Normal 43.0-75.0 [facility] Comment on above: Performed By: #### C BC #### [facility] [address] [place] [address] Dr. Dwight Waters Platelet mean volume (Bld) [Entitic vol] 9.3 fL Critically low 9.5-13.5 [facility] Comment on above: Performed By: #### C BC #### [facility] [address] [place] [address] Dr. Dwight Waters PLT 248 103/ul Normal 150-450 [facility] Comment on above: Performed By: #### C BC #### [facility] [address] [place] [address] Dr. Dwight Waters RBC 5.73 106/ul Normal 4.70-6.10 [facility] Comment on above: Performed By: #### C BC #### [facility] [address] [place] [address] Dr. Dwight Waters WBC 5.5 103/ul Normal 4.0-11.0 [facility] Comment on above: Performed By: #### C BC #### [facility] [address] [place] [address] Dr. Dwight Wtaers CHLORIDEon 04-28-2023 Chloride [Moles/Vol] 107 mmol/L Normal 98-107 [facility] Comment on above: Performed By: #### U RTPCR #### [facility] [address] [place] [address] Dr. Dwight Waters CO2on 04-28-2023 CO2 [Moles/Vol] 28.9 mmol/L Normal 21.0-32.0 [facility] Comment on above: Performed By: #### U RTPCR #### [facility] [address] [place] [address] Dr. Dwight Waters CREATININEon 04-28-2023 Creatinine [Mass/Vol] 1.17 mg/dL Normal 0.70-1.30 [facility] Comment on above: Performed By: #### U RTPCR #### [facility] [address] [place] [address] Dr. Dwight Waters EGFR-AF KAZAKH >60 Normal >=60 [facility] Comment on above: Performed By: #### U RTPCR #### [facility] [address] [place] [address] Dr. Dwight Waters EGFR-NON AF KAZAKH >60 Normal >=60 [facility] Comment on above: Performed By: #### U RTPCR #### [facility] [address] [place] [address] Dr. Dwight Waters GGTon 04-28-2023 Gamma glutamyl transferase [Catalytic activity/Vol] 27 U/L Normal 15-85 [facility] Comment on above: Performed By: #### U RTPCR #### [facility] [address] [place] [address] Dr. Dwight Waters GLUCOSE BLOODon 04-28-2023 Glucose [Mass/Vol] 110 mg/dL Critically high 74-106 [facility] Comment on above: Performed By: #### U RTPCR #### [facility] [address] [place] [address] Dr. Dwight Waters MAGNESIUMon 04-28-2023 Magnesium [Mass/Vol] 1.7 mg/dL Critically low 1.8-2.4 [facility] Comment on above: Performed By: #### U RTPCR #### [facility] [address] [place] [address] Dr. Dwight Waters NAon 04-28-2023 Sodium [Moles/Vol] 144 mmol/L Normal 136-145 [facility] Comment on above: Performed By: #### U RTPCR #### [facility] [address] [place] [address] Dr. Dwight Waters PHOSPHORUSon 04-28-2023 Phosphate [Mass/Vol] 3.2 mg/dL Normal 2.6-4.7 [facility] Comment on above: Performed By: #### U RTPCR #### [facility] [address] [place] [address] Dr. Dwight Waters POTASSIUMon 04-28-2023 Potassium [Moles/Vol] 4.0 mmol/L Normal 3.5-5.1 [facility] Comment on above: Performed By: #### U RTPCR #### [facility] [address] [place] [address] Dr. Dwight Waters SGOTon 04-28-2023 AST [Catalytic activity/Vol] 25 U/L Normal 15-37 [facility] Comment on above: Performed By: #### C MP #### [facility] [address] [place] [address] Dr. Dwight Waters SGPTon 04-28-2023 ALT [Catalytic activity/Vol] 40 U/L Normal 16-63 [facility] Comment on above: Performed By: #### C MP #### [facility] [address] [place] [address] Dr. Dwight Waters URINE T PROTEIN CREAT RATIOo n 04-28-2023 Protein (U) [Mass/Vol] 10.1 mg/dL Normal <=12.0 [facility] Comment on above: Performed By: #### U RTPCR #### [facility] [address] [place] [address] Dr. Dwight Waters UR PROT CREAT RAT 0.14 Normal [facility] Comment on above: Performed By: #### U RTPCR #### [facility] [address] [place] [address] Dr. Dwight Waters URINE CREAT 74.40 mg/dL Normal 20.00-300.00 [facility] Comment on above: Performed By: #### U RTPCR #### [facility] [address] [place] [address] Dr. Dwight Waters Office Visiton 04-13-2023 Follow-up visit [id number] George Styles 1970 M Date Provider Department Center 04/13/2023 MIGUEL PARADA [facility] Family History Problem Relation Age of Onset Coronary artery disease Mother Coronary artery disease Father Family Status - Relation Status Age at Mother Father Level of Service:37185 [place] OFFICE/OUTPATIENT ESTABLISHED LOW MDM 20-29 MIN Reason for Visit and Comments: Hypertension [273221] Hyperlipidemia [182] Normal [facility] BK VIRUS PCR QUANTon 023 BKV DNA QUANT PCR PLASMA Negative Normal Negative [facility] Comment on above: Result Comment: No B K DNA detected. . The linear range of the assay is 22 - 100,000,000 IU/mL. Performed By: #### B KVIRUS #### [facility] [address] [place] [address] Dr. Dwight Waters Log10 BKV DNA Plasma Normal [facility] Comment on above: Performed By: #### B KVIRUS #### [facility] [address] [place] [address] Dr. Dwight Waters FK506 (TACROLIMUS) WHOLE BLO ODon 03-04-2023 Tacrolimus (FK506), Blood 5.9 ng/mL Normal 2.0-20.0 [facility] Comment on above: Result Comment: Trou gh (immediately following transplant) 15.0 . Trough (steady state, 2 weeks or more after transplant): 3.0 - 8.0 . Performed by LC-MS/MS technology. Performed By: #### C MP #### [facility] [address] [place] [address] Dr. Dwight Waters ALBUMINon 03-02-2023 Albumin [Mass/Vol] 3.9 g/dL Normal 3.4-5.0 [facility] Comment on above: Performed By: #### U RTPCR #### [facility] [address] [place] [address] Dr. Dwight Waters ALKALINE PHOSPHAon ALP [Catalytic activity/Vol] 105 U/L Normal 46-116 [facility] Comment on above: Performed By: #### U RTPCR #### [facility] [address] [place] [address] Dr. Dwight Waters BILIRUBIN CONJUGATED (DIRECT )on 03-02-2023 BILI, CONJUGATED 0.2 mg/dL Normal 0.0-0.2 [facility] Comment on above: Performed By: #### U RTPCR #### [facility] [address] [place] [address] Dr. Dwight Waters BILIRUBIN TOTALon 03-02-2023 Bilirubin [Mass/Vol] 0.9 mg/dL Normal 0.2-1.0 [facility] Comment on above: Performed By: #### U RTPCR #### [facility] [address] [place] [address] Dr. Dwight Waters CBC AUTO DIFFon 03-02-2023 BASO # 0.1 103/ul Normal 0.0-0.1 [facility] Comment on above: Performed By: #### C BC #### [facility] [address] [place] [address] Dr. Dwight Waters Basophils/100 WBC (Bld) 0.9 % Normal 0.2-2.0 [facility] Comment on above: Performed By: #### C BC #### [facility] [address] [place] [address] Dr. Dwight Waters EO # 0.2 103/ul Normal 0.0-0.7 [facility] Comment on above: Performed By: #### C BC #### [facility] [address] [place] [address] Dr. Dwight Waters Eosinophils/100 WBC (Bld) 3.5 % Normal 0.9-7.0 [facility] Comment on above: Performed By: #### C BC #### [facility] [address] [place] [address] Dr. Dwight Waters Erythrocyte distribution width (RBC) [Ratio] 12.7 % Normal 11.0-15.0 [facility] Comment on above: Performed By: #### C BC #### [facility] [address] [place] [address] Dr. Dwight Waters Hematocrit (Bld) [Volume fraction] 48.2 % Normal 42.0-54.0 [facility] Comment on above: Performed By: #### C BC #### [facility] [address] [place] [address] Dr. Dwight Waters Hemoglobin (Bld) [Mass/Vol] 15.9 g/dL Normal 14.0-18.0 [facility] Comment on above: Performed By: #### C BC #### [facility] [address] [place] [address] Dr. Dwight Waters IG # 0.01 10e3/ul Normal 0.00-0.03 [facility] Comment on above: Performed By: #### C BC #### [facility] [address] [place] [address] Dr. Dwight Waters IG % 0.2 % Normal 0.0-0.5 [facility] Comment on above: Performed By: #### C BC #### [facility] [address] [place] [address] Dr. Dwight Waters LYMPH # 2.1 103/ul Normal 1.2-3.8 [facility] Comment on above: Performed By: #### C BC #### [facility] [address] [place] [address] Dr. Dwight Waters Lymphocytes/100 WBC (Bld) 37.4 % Normal 20.5-60.0 [facility] Comment on above: Performed By: #### C BC #### [facility] [address] [place] [address] Dr. Dwight Waters MANUAL DIFF REQ NO Normal [facility] Comment on above: Performed By: #### C BC #### [facility] [address] [place] [address] Dr. Dwight Waters MCH (RBC) [Entitic mass] 28.3 pg Normal 25.9-34.0 [facility] Comment on above: Performed By: #### C BC #### [facility] [address] [place] [address] Dr. Dwight Waters MCHC (RBC) [Mass/Vol] 33.0 g/dL Normal 29.9-35.2 [facility] Comment on above: Performed By: #### C BC #### [facility] [address] [place] [address] Dr. Dwight Waters MCV (RBC) [Entitic vol] 85.8 fL Normal 80.0-94.0 [facility] Comment on above: Performed By: #### C BC #### [facility] [address] [place] [address] Dr. Dwight Waters MONO # 0.6 103/ul Normal 0.3-0.8 [facility] Comment on above: Performed By: #### C BC #### [facility] [address] [place] [address] Dr. Dwight Waters Monocytes/100 WBC (Bld) 10.2 % Normal 1.7-12.0 [facility] Comment on above: Performed By: #### C BC #### [facility] [address] [place] [address] Dr. Dwight Waters NEUT # 2.7 103/ul Normal 1.4-6.5 [facility] Comment on above: Performed By: #### C BC #### [facility] [address] [place] [address] Dr. Dwight Waters Neutrophils/100 WBC (Bld) 47.8 % Normal 43.0-75.0 [facility] Comment on above: Performed By: #### C BC #### [facility] [address] [place] [address] Dr. Dwight Waters Platelet mean volume (Bld) [Entitic vol] 9.3 fL Critically low 9.5-13.5 [facility] Comment on above: Performed By: #### C BC #### [facility] [address] [place] [address] Dr. Dwight Waters PLT 241 103/ul Normal 150-450 [facility] Comment on above: Performed By: #### C BC #### [facility] [address] [place] [address] Dr. Dwight Waters RBC 5.62 106/ul Normal 4.70-6.10 [facility] Comment on above: Performed By: #### C BC #### [facility] [address] [place] [address] Dr. Dwight Waters WBC 5.7 103/ul Normal 4.0-11.0 [facility] Comment on above: Performed By: #### C BC #### [facility] [address] [place] [address] Dr. Dwight Waters GGTon 03-02-2023 Gamma glutamyl transferase [Catalytic activity/Vol] 25 U/L Normal 15-85 [facility] Comment on above: Performed By: #### U RTPCR #### [facility] [address] [place] [address] Dr. Dwight Waters MAGNESIUMon 03-02-2023 Magnesium [Mass/Vol] 1.6 mg/dL Critically low 1.8-2.4 [facility] Comment on above: Performed By: #### U RTPCR #### [facility] [address] [place] [address] Dr. Dwight Waters PHOSPHORUSon 03-02-2023 Phosphate [Mass/Vol] 3.6 mg/dL Normal 2.6-4.7 [facility] Comment on above: Performed By: #### U RTPCR #### [facility] [address] [address] [address] Dwight Waters PROF CHEM 8 (BAS METB)on Anion gap [Moles/Vol] 9.4 mmol/L Normal [facility] Comment on above: Performed By: #### U RTPCR #### [facility] [address] [place] [address] Dr. Dwight Waters Calcium [Mass/Vol] 9.3 mg/dL Normal 8.5-10.1 [facility] Comment on above: Performed By: #### U RTPCR #### [facility] [address] [place] [address] Dr. Dwight Waters Chloride [Moles/Vol] 108 mmol/L Critically high 98-107 [facility] Comment on above: Performed By: #### U RTPCR #### [facility] [address] [place] [address] Dr. Dwight Waters CO2 [Moles/Vol] 27.2 mmol/L Normal 21.0-32.0 [facility] Comment on above: Performed By: #### U RTPCR #### [facility] [address] [place] [address] Dr. Dwight Waters Creatinine [Mass/Vol] 1.12 mg/dL Normal 0.70-1.30 [facility] Comment on above: Performed By: #### U RTPCR #### [facility] [address] [place] [address] Dr. Dwight Waters EGFR-AF KAZAKH >60 Normal >=60 [facility] Comment on above: Performed By: #### U RTPCR #### [facility] [address] [place] [address] Dr. Dwight Waters EGFR-NON AF KAZAKH >60 Normal >=60 [facility] Comment on above: Performed By: #### U RTPCR #### [facility] [address] [place] [address] Dr. Dwight Waters Glucose [Mass/Vol] 113 mg/dL Critically high 74-106 [facility] Comment on above: Performed By: #### U RTPCR #### [facility] [address] [address] [address] Dwight Waters Potassium [Moles/Vol] 3.6 mmol/L Normal 3.5-5.1 [facility] Comment on above: Performed By: #### U RTPCR #### [facility] [address] [place] [address] Dr. Dwight Waters Sodium [Moles/Vol] 141 mmol/L Normal 136-145 [facility] Comment on above: Performed By: #### U RTPCR #### [facility] [address] [place] [address] Dr. Dwight Waters Urea nitrogen [Mass/Vol] 14.0 mg/dL Normal 7.0-18.0 [facility] Comment on above: Performed By: #### U RTPCR #### [facility] [address] [place] [address] Dr. Dwight Waters Urea nitrogen/Creatinine [Mass ratio] 12.5 mg/mg Normal [facility] Comment on above: Performed By: #### U RTPCR #### [facility] [address] [place] [address] Dr. Dwight Waters SGOTon 03-02-2023 AST [Catalytic activity/Vol] 20 U/L Normal 15-37 [facility] Comment on above: Performed By: #### U RTPCR #### [facility] [address] [place] [address] Dr. Dwight Waters SGPTon 03-02-2023 ALT [Catalytic activity/Vol] 30 U/L Normal 16-63 [facility] Comment on above: Performed By: #### U RTPCR #### [facility] [address] [place] [address] Dr. Dwight Waters URINE T PROTEIN CREAT RATIOo n 03-02-2023 Protein (U) [Mass/Vol] 10.3 mg/dL Normal <=12.0 [facility] Comment on above: Performed By: #### U RTPCR #### [facility] [address] [place] [address] Dr. Dwight Waters UR PROT CREAT RAT 0.15 Normal [facility] Comment on above: Performed By: #### U RTPCR #### [facility] [address] [place] [address] Dr. Dwight Waters URINE CREAT 68.96 mg/dL Normal 20.00-300.00 [facility] Comment on above: Performed By: #### U RTPCR #### [facility] [address] [place] [address] Dr. Dwight Waters BK VIRUS PCR QUANTon 023 BKV DNA QUANT PCR PLASMA Negative Normal Negative [facility] Comment on above: Result Comment: No B K DNA detected. . The linear range of the assay is 22 - 100,000,000 IU/mL. Performed By: #### C MP #### [facility] [address] [place] [address] Dr. Dwight Waters Log10 BKV DNA Plasma Normal [facility] Comment on above: Performed By: #### C MP #### [facility] [address] [place] [address] Dr. Dwight Waters FK506 (TACROLIMUS) WHOLE BLO ODon 12-31-2022 Tacrolimus (FK506), Blood 5.6 ng/mL Normal 2.0-20.0 [facility] Comment on above: Result Comment: Trou gh (immediately following transplant) 15.0 . Trough (steady state, 2 weeks or more after transplant): 3.0 - 8.0 . Performed by LC-MS/MS technology. Performed By: #### C MP #### [facility] [address] [place] [address] Dr. Dwight Waters ALKALINE PHOSPHAon 3 ALP [Catalytic activity/Vol] 96 U/L Normal 46-116 [facility] Comment on above: Performed By: #### C BC #### [facility] [address] [place] [address] Dr. Dwight Waters BILIRUBIN CONJUGATED (DIRECT )on 12-29-2022 BILI, CONJUGATED 0.3 mg/dL Critically high 0.0-0.2 [facility] Comment on above: Performed By: #### C BC #### [facility] [address] [place] [address] Dr. Dwight Waters BILIRUBIN TOTALon 12-29-2022 Bilirubin [Mass/Vol] 1.1 mg/dL Critically high 0.2-1.0 [facility] Comment on above: Performed By: #### C BC #### [facility] [address] [address] [address] Dwight Waters CBC AUTO DIFFon 12-29-2022 BASO # 0.1 103/ul Normal 0.0-0.1 [facility] Comment on above: Performed By: #### C MP #### [facility] [address] [place] [address] Dr. Dwight Waters Basophils/100 WBC (Bld) 0.8 % Normal 0.2-2.0 [facility] Comment on above: Performed By: #### C MP #### [facility] [address] [place] [address] Dr. Dwight Waters EO # 0.2 103/ul Normal 0.0-0.7 [facility] Comment on above: Performed By: #### C MP #### [facility] [address] [place] [address] Dr. Dwight Waters Eosinophils/100 WBC (Bld) 3.0 % Normal 0.9-7.0 [facility] Comment on above: Performed By: #### C MP #### [facility] [address] [place] [address] Dr. Dwight Waters Erythrocyte distribution width (RBC) [Ratio] 12.9 % Normal 11.0-15.0 [facility] Comment on above: Performed By: #### C MP #### [facility] [address] [place] [address] Dr. Dwight Waters Hematocrit (Bld) [Volume fraction] 46.9 % Normal 42.0-54.0 [facility] Comment on above: Performed By: #### C MP #### [facility] [address] [place] [address] Dr. Dwight Waters Hemoglobin (Bld) [Mass/Vol] 16.1 g/dL Normal 14.0-18.0 [facility] Comment on above: Performed By: #### C MP #### [facility] [address] [place] [address] Dr. Dwight Waters IG # 0.01 10e3/ul Normal 0.00-0.03 [facility] Comment on above: Performed By: #### C MP #### [facility] [address] [place] [address] Dr. Dwight Waters IG % 0.2 % Normal 0.0-0.5 [facility] Comment on above: Performed By: #### C MP #### [facility] [address] [place] [address] Dr. Dwight Waters LYMPH # 1.8 103/ul Normal 1.2-3.8 [facility] Comment on above: Performed By: #### C MP #### [facility] [address] [place] [address] Dr. Dwight Waters Lymphocytes/100 WBC (Bld) 27.9 % Normal 20.5-60.0 [facility] Comment on above: Performed By: #### C MP #### [facility] [address] [place] [address] Dr. Dwight Waters MANUAL DIFF REQ NO Normal [facility] Comment on above: Performed By: #### C MP #### [facility] [address] [place] [address] Dr. Dwight Waters MCH (RBC) [Entitic mass] 28.5 pg Normal 25.9-34.0 [facility] Comment on above: Performed By: #### C MP #### [facility] [address] [place] [address] Dr. Dwight Waters MCHC (RBC) [Mass/Vol] 34.3 g/dL Normal 29.9-35.2 [facility] Comment on above: Performed By: #### C MP #### [facility] [address] [place] [address] Dr. Dwight Waters MCV (RBC) [Entitic vol] 83.2 fL Normal 80.0-94.0 [facility] Comment on above: Performed By: #### C MP #### [facility] [address] [place] [address] Dr. Dwight Waters MONO # 0.5 103/ul Normal 0.3-0.8 [facility] Comment on above: Performed By: #### C MP #### [facility] [address] [place] [address] Dr. Dwight Waters Monocytes/100 WBC (Bld) 8.1 % Normal 1.7-12.0 [facility] Comment on above: Performed By: #### C MP #### [facility] [address] [place] [address] Dr. Dwight Waters NEUT # 3.8 103/ul Normal 1.4-6.5 [facility] Comment on above: Performed By: #### C MP #### [facility] [address] [place] [address] Dr. Dwight Waters Neutrophils/100 WBC (Bld) 60.0 % Normal 43.0-75.0 [facility] Comment on above: Performed By: #### C MP #### [facility] [address] [place] [address] Dr. Dwight Waters Platelet mean volume (Bld) [Entitic vol] 9.2 fL Critically low 9.5-13.5 [facility] Comment on above: Performed By: #### C MP #### [facility] [address] [place] [address] Dr. Dwight Waters PLT 225 103/ul Normal 150-450 [facility] Comment on above: Performed By: #### C MP #### [facility] [address] [place] [address] Dr. Dwight Waters RBC 5.64 106/ul Normal 4.70-6.10 [facility] Comment on above: Performed By: #### C MP #### [facility] [address] [place] [address] Dr. Dwight Waters WBC 6.3 103/ul Normal 4.0-11.0 [facility] Comment on above: Performed By: #### C MP #### [facility] [address] [place] [address] Dr. Dwight Waters GGTon 12-29-2022 Gamma glutamyl transferase [Catalytic activity/Vol] 24 U/L Normal 15-85 [facility] Comment on above: Performed By: #### C MP #### [facility] [address] [address] [address] Dwight Waters LIPID PROFILEon 12-29-2022 CHOL-HDL RATIO NORM SEE BELOW Normal [facility] Comment on above: Result Comment: 3.3 - 4.4 LOW RISK 4.4 - 7.1 AVERAGE RISK 7.1 - 11.0 MODERATE RISK >11.0 HIGH RISK Performed By: #### U RTPCR #### [facility] [address] [address] [address] Dwight Waters Cholesterol [Mass/Vol] 87 mg/dL Normal <=200 [facility] Comment on above: Performed By: #### U RTPCR #### [facility] [address] [address] [address] Dwight Waters Cholesterol in HDL [Mass/Vol] 44 mg/dL Normal 40-60 [facility] Comment on above: Performed By: #### U RTPCR #### [facility] [address] [address] [address] Dwight Waters Cholesterol in LDL [Mass/Vol] 33.0 mg/dL Normal [facility] Comment on above: Performed By: #### U RTPCR #### [facility] [address] [address] [address] Dwight Waters Cholesterol.total/Ch olesterol in HDL [Mass ratio] 2.0 {ratio} Normal [facility] Comment on above: Performed By: #### U RTPCR #### [facility] [address] [address] [address] Dwight Waters HDL NORMAL > or = 60 mg/dl - LO W CARDIOVASCULAR RISK <40 mg/dl - HIGH CARDIOVASCULAR RISK Normal [facility] Comment on above: Performed By: #### U RTPCR #### [facility] [address] [address] [address] Dwight Waters LDL CALC NORMAL SEE BELOW Normal [facility] Comment on above: Result Comment: <100 mg/dl OPTIMAL 100 - 129 mg/dl NEAR OR ABOVE OPTIMAL 130 - 159 mg/dl BORDERLINE HIGH 160 - 189 mg/dl HIGH >190 mg/dl VERY HIGH Performed By: #### U RTPCR #### [facility] [address] [place] [address] Dr. Dwight Waters Triglyceride [Mass/Vol] 50 mg/dL Normal <=150 [facility] Comment on above: Performed By: #### U RTPCR #### [facility] [address] [place] [address] Dr. Dwight Waters VLDL CALC 10.0 mg/dL Normal [facility] Comment on above: Performed By: #### U RTPCR #### [facility] [address] [place] [address] Dr. Dwight Waters MAGNESIUMon 12-29-2022 Magnesium [Mass/Vol] 1.6 mg/dL Critically low 1.8-2.4 [facility] Comment on above: Performed By: #### C BC #### [facility] [address] [place] [address] Dr. Dwight Waters RENAL FUNCTION PANELon 12-29 Albumin [Mass/Vol] 3.9 g/dL Normal 3.4-5.0 [facility] Comment on above: Performed By: #### C BC #### [facility] [address] [place] [address] Dr. Dwight Waters Calcium [Mass/Vol] 9.2 mg/dL Normal 8.5-10.1 [facility] Comment on above: Performed By: #### C BC #### [facility] [address] [place] [address] Dr. Dwight Waters Chloride [Moles/Vol] 109 mmol/L Critically high 98-107 [facility] Comment on above: Performed By: #### C BC #### [facility] [address] [place] [address] Dr. Dwight Waters CO2 [Moles/Vol] 27.0 mmol/L Normal 21.0-32.0 [facility] Comment on above: Performed By: #### C BC #### [facility] [address] [place] [address] Dr. Dwight Waters Creatinine [Mass/Vol] 1.02 mg/dL Normal 0.70-1.30 [facility] Comment on above: Performed By: #### C BC #### [facility] [address] [place] [address] Dr. Dwight Waters EGFR-AF KAZAKH >60 Normal >=60 [facility] Comment on above: Performed By: #### C BC #### [facility] [address] [place] [address] Dr. Dwight Waters EGFR-NON AF KAZAKH >60 Normal >=60 [facility] Comment on above: Performed By: #### C BC #### [facility] [address] [address] [address] Dwight Waters Glucose [Mass/Vol] 117 mg/dL Critically high 74-106 [facility] Comment on above: Performed By: #### C BC #### [facility] [address] [place] [address] Dr. Dwight Waters Phosphate [Mass/Vol] 3.2 mg/dL Normal 2.6-4.7 [facility] Comment on above: Performed By: #### C BC #### [facility] [address] [place] [address] Dr. Dwight Waters Potassium [Moles/Vol] 4.1 mmol/L Normal 3.5-5.1 [facility] Comment on above: Performed By: #### C BC #### [facility] [address] [place] [address] Dr. Dwight Waters Sodium [Moles/Vol] 144 mmol/L Normal 136-145 [facility] Comment on above: Performed By: #### C BC #### [facility] [address] [place] [address] Dr. Dwight Waters Urea nitrogen [Mass/Vol] 13.0 mg/dL Normal 7.0-18.0 [facility] Comment on above: Performed By: #### C BC #### [facility] [address] [place] [address] Dr. Dwight Waters SGLashondan 12-29-2022 AST [Catalytic activity/Vol] 21 U/L Normal 15-37 [facility] Comment on above: Performed By: #### C BC #### [facility] [address] [address] [address] Dwight Waters SGPTon 12-29-2022 ALT [Catalytic activity/Vol] 32 U/L Normal 16-63 [facility] Comment on above: Performed By: #### C BC #### [facility] [address] [place] [address] Dr. Dwight Waters URINE T PROTEIN CREAT RATIOo n 12-29-2022 Protein (U) [Mass/Vol] 14.3 mg/dL Critically high <=12.0 [facility] Comment on above: Performed By: #### U RTPCR #### [facility] [address] [place] [address] Dr. Dwight Waters UR PROT CREAT RAT 0.17 Normal [facility] Comment on above: Performed By: #### U RTPCR #### [facility] [address] [place] [address] Dr. Dwight Waters URINE CREAT 86.58 mg/dL Normal 20.00-300.00 [facility] Comment on above: Performed By: #### U RTPCR #### [facility] [address] [place] [address] Dr. Dwight Waters FK506 (TACROLIMUS) WHOLE BLO ODon 11-06-2022 Tacrolimus (FK506), Blood 4.9 ng/mL Normal 2.0-20.0 [facility] Comment on above: Result Comment: Trou gh (immediately following transplant) 15.0 . Trough (steady state, 2 weeks or more after transplant): 3.0 - 8.0 . Performed by LC-MS/MS technology. Performed By: #### U RTPCR #### [facility] [address] [place] [address] Dr. Dwight Waters ALKALINE PHOSPHAon ALP [Catalytic activity/Vol] 86 U/L Normal 46-116 [facility] Comment on above: Performed By: #### U RTPCR #### [facility] [address] [place] [address] Dr. Dwight Waters BILIRUBIN CONJUGATED (DIRECT )on 11-04-2022 BILI, CONJUGATED 0.2 mg/dL Normal 0.0-0.2 [facility] Comment on above: Performed By: #### U RTPCR #### [facility] [address] [place] [address] Dr. Dwight Waters BILIRUBIN TOTALon 11-04-2022 Bilirubin [Mass/Vol] 0.8 mg/dL Normal 0.2-1.0 [facility] Comment on above: Performed By: #### U RTPCR #### [facility] [address] [place] [address] Dr. Dwight Waters CBC AUTO DIFFon 11-04-2022 BASO # 0.1 103/ul Normal 0.0-0.1 [facility] Comment on above: Performed By: #### U RTPCR #### [facility] [address] [place] [address] Dr. Dwight Waters Basophils/100 WBC (Bld) 0.9 % Normal 0.2-2.0 [facility] Comment on above: Performed By: #### U RTPCR #### [facility] [address] [place] [address] Dr. Dwight Waters EO # 0.2 103/ul Normal 0.0-0.7 [facility] Comment on above: Performed By: #### U RTPCR #### [facility] [address] [place] [address] Dr. Dwight Waters Eosinophils/100 WBC (Bld) 3.7 % Normal 0.9-7.0 [facility] Comment on above: Performed By: #### U RTPCR #### [facility] [address] [place] [address] Dr. Dwight Waters Erythrocyte distribution width (RBC) [Ratio] 12.9 % Normal 11.0-15.0 [facility] Comment on above: Performed By: #### U RTPCR #### [facility] [address] [place] [address] Dr. Dwight Waters Hematocrit (Bld) [Volume fraction] 48.3 % Normal 42.0-54.0 [facility] Comment on above: Performed By: #### U RTPCR #### [facility] [address] [address] [address] Dwight Waters Hemoglobin (Bld) [Mass/Vol] 15.6 g/dL Normal 14.0-18.0 [facility] Comment on above: Performed By: #### U RTPCR #### [facility] [address] [address] [address] Dwight Waters IG # 0.01 10e3/ul Normal 0.00-0.03 [facility] Comment on above: Performed By: #### U RTPCR #### [facility] [address] [place] [address] Dr. Dwight Waters IG % 0.2 % Normal 0.0-0.5 [facility] Comment on above: Performed By: #### U RTPCR #### [facility] [address] [place] [address] Dr. Dwight Waters LYMPH # 1.9 103/ul Normal 1.2-3.8 [facility] Comment on above: Performed By: #### U RTPCR #### [facility] [address] [place] [address] Dr. Dwight Waters Lymphocytes/100 WBC (Bld) 33.0 % Normal 20.5-60.0 [facility] Comment on above: Performed By: #### U RTPCR #### [facility] [address] [place] [address] Dr. Dwight Waters MANUAL DIFF REQ NO Normal [facility] Comment on above: Performed By: #### U RTPCR #### [facility] [address] [place] [address] Dr. Dwight Waters MCH (RBC) [Entitic mass] 27.6 pg Normal 25.9-34.0 [facility] Comment on above: Performed By: #### U RTPCR #### [facility] [address] [place] [address] Dr. Dwight Waters MCHC (RBC) [Mass/Vol] 32.3 g/dL Normal 29.9-35.2 [facility] Comment on above: Performed By: #### U RTPCR #### [facility] [address] [address] [address] Dwight Waters MCV (RBC) [Entitic vol] 85.5 fL Normal 80.0-94.0 [facility] Comment on above: Performed By: #### U RTPCR #### [facility] [address] [address] [address] Dwight Waters MONO # 0.5 103/ul Normal 0.3-0.8 [facility] Comment on above: Performed By: #### U RTPCR #### [facility] [address] [place] [address] Dr. Dwight Waters Monocytes/100 WBC (Bld) 8.8 % Normal 1.7-12.0 [facility] Comment on above: Performed By: #### U RTPCR #### [facility] [address] [place] [address] Dr. Dwight Waters NEUT # 3.1 103/ul Normal 1.4-6.5 [facility] Comment on above: Performed By: #### U RTPCR #### [facility] [address] [place] [address] Dr. Dwight Waters Neutrophils/100 WBC (Bld) 53.4 % Normal 43.0-75.0 [facility] Comment on above: Performed By: #### U RTPCR #### [facility] [address] [place] [address] Dr. Dwight Waters Platelet mean volume (Bld) [Entitic vol] 9.2 fL Critically low 9.5-13.5 [facility] Comment on above: Performed By: #### U RTPCR #### [facility] [address] [place] [address] Dr. Dwight Waters PLT 255 103/ul Normal 150-450 [facility] Comment on above: Performed By: #### U RTPCR #### [facility] [address] [place] [address] Dr. Dwight Waters RBC 5.65 106/ul Normal 4.70-6.10 [facility] Comment on above: Performed By: #### U RTPCR #### [facility] [address] [address] [address] Dwight Waters WBC 5.7 103/ul Normal 4.0-11.0 [facility] Comment on above: Performed By: #### U RTPCR #### [facility] [address] [place] [address] Dr. Dwight Waters GGTon 11-04-2022 Gamma glutamyl transferase [Catalytic activity/Vol] 22 U/L Normal 15-85 [facility] Comment on above: Performed By: #### U RTPCR #### [facility] [address] [place] [address] Dr. Dwight Waters MAGNESIUMon 11-04-2022 Magnesium [Mass/Vol] 1.8 mg/dL Normal 1.8-2.4 [facility] Comment on above: Performed By: #### U RTPCR #### [facility] [address] [place] [address] Dr. Dwight Waters RENAL FUNCTION PANELon 11-04 Albumin [Mass/Vol] 3.8 g/dL Normal 3.4-5.0 [facility] Comment on above: Performed By: #### U RTPCR #### [facility] [address] [place] [address] Dr. Dwight Waters Calcium [Mass/Vol] 9.3 mg/dL Normal 8.5-10.1 [facility] Comment on above: Performed By: #### U RTPCR #### [facility] [address] [place] [address] Dr. Dwight Waters Chloride [Moles/Vol] 107 mmol/L Normal 98-107 [facility] Comment on above: Performed By: #### U RTPCR #### [facility] [address] [place] [address] Dr. Dwight Waters CO2 [Moles/Vol] 29.2 mmol/L Normal 21.0-32.0 [facility] Comment on above: Performed By: #### U RTPCR #### [facility] [address] [place] [address] Dr. Dwight Waters Creatinine [Mass/Vol] 1.07 mg/dL Normal 0.70-1.30 [facility] Comment on above: Performed By: #### U RTPCR #### [facility] [address] [address] [address] Dwight Waters EGFR-AF KAZAKH >60 Normal >=60 [facility] Comment on above: Performed By: #### U RTPCR #### [facility] [address] [address] [address] Dwight Waters EGFR-NON AF KAZAKH >60 Normal >=60 [facility] Comment on above: Performed By: #### U RTPCR #### [facility] [address] [address] [address] Dwight Waters Glucose [Mass/Vol] 106 mg/dL Normal 74-106 [facility] Comment on above: Performed By: #### U RTPCR #### [facility] [address] [place] [address] Dr. Dwight Waters Phosphate [Mass/Vol] 2.8 mg/dL Normal 2.6-4.7 [facility] Comment on above: Performed By: #### U RTPCR #### [facility] [address] [place] [address] Dr. Dwight Waters Potassium [Moles/Vol] 4.1 mmol/L Normal 3.5-5.1 [facility] Comment on above: Performed By: #### U RTPCR #### [facility] [address] [place] [address] Dr. Dwight Waters Sodium [Moles/Vol] 143 mmol/L Normal 136-145 [facility] Comment on above: Performed By: #### U RTPCR #### [facility] [address] [place] [address] Dr. Dwight Waters Urea nitrogen [Mass/Vol] 12.0 mg/dL Normal 7.0-18.0 [facility] Comment on above: Performed By: #### U RTPCR #### [facility] [address] [place] [address] Dr. Dwight Waters SGOTon 11-04-2022 AST [Catalytic activity/Vol] 19 U/L Normal 15-37 [facility] Comment on above: Performed By: #### U RTPCR #### [facility] [address] [place] [address] Dr. Dwight Waters SGPTon 11-04-2022 ALT [Catalytic activity/Vol] 28 U/L Normal 16-63 [facility] Comment on above: Performed By: #### U RTPCR #### [facility] [address] [place] [address] Dr. Dwight Waters URINE T PROTEIN CREAT RATIOo n 11-04-2022 Protein (U) [Mass/Vol] 10.7 mg/dL Normal <=12.0 [facility] Comment on above: Performed By: #### U RTPCR #### [facility] [address] [place] [address] Dr. Dwight Waters UR PROT CREAT RAT 0.13 Normal [facility] Comment on above: Performed By: #### U RTPCR #### [facility] [address] [place] [address] Dr. Dwight Waters URINE CREAT 84.50 mg/dL Normal 20.00-300.00 [facility] Comment on above: Performed By: #### U RTPCR #### [facility] [address] [place] [address] Dr. Dwight Waters FK506 (TACROLIMUS) WHOLE BLO ODon 09-18-2022 Tacrolimus (FK506), Blood 4.6 ng/mL Normal 2.0-20.0 [facility] Comment on above: Result Comment: Trou gh (immediately following transplant) 15.0 . Trough (steady state, 2 weeks or more after transplant): 3.0 - 8.0 . Performed by LC-MS/MS technology. Performed By: #### U RTPCR #### [facility] [address] [place] [address] Dr. Dwight Waters BK VIRUS PCR QUANTon 022 BKV DNA QUANT PCR PLASMA Negative Normal Negative [facility] Comment on above: Result Comment: No B K DNA detected. . The linear range of the assay is 22 - 100,000,000 IU/mL. Performed By: #### U RTPCR #### [facility] [address] [place] [address] Dr. Dwight Waters Log10 BKV DNA Plasma Normal [facility] Comment on above: Performed By: #### U RTPCR #### [facility] [address] [place] [address] Dr. Dwight Waters ALKALINE PHOSPHAon ALP [Catalytic activity/Vol] 92 U/L Normal 46-116 [facility] Comment on above: Performed By: #### U RTPCR #### [facility] [address] [place] [address] Dr. Dwight Waters BILIRUBIN CONJUGATED (DIRECT )on 09-15-2022 BILI, CONJUGATED 0.3 mg/dL Critically high 0.0-0.2 [facility] Comment on above: Performed By: #### U RTPCR #### [facility] [address] [place] [address] Dr. Dwight Waters BILIRUBIN TOTALon 09-15-2022 Bilirubin [Mass/Vol] 1.1 mg/dL Critically high 0.2-1.0 [facility] Comment on above: Performed By: #### U RTPCR #### [facility] [address] [place] [address] Dr. Dwight Waters CBC AUTO DIFFon 09-15-2022 BASO # 0.1 103/ul Normal 0.0-0.1 [facility] Comment on above: Performed By: #### C BC #### [facility] [address] [place] [address] Dr. Dwight Waters Basophils/100 WBC (Bld) 0.8 % Normal 0.2-2.0 [facility] Comment on above: Performed By: #### C BC #### [facility] [address] [place] [address] Dr. Dwight Waters EO # 0.2 103/ul Normal 0.0-0.7 [facility] Comment on above: Performed By: #### C BC #### [facility] [address] [place] [address] Dr. Dwight Waters Eosinophils/100 WBC (Bld) 3.5 % Normal 0.9-7.0 [facility] Comment on above: Performed By: #### C BC #### [facility] [address] [place] [address] Dr. Dwight Waters Erythrocyte distribution width (RBC) [Ratio] 13.0 % Normal 11.0-15.0 [facility] Comment on above: Performed By: #### C BC #### [facility] [address] [place] [address] Dr. Dwight Waters Hematocrit (Bld) [Volume fraction] 50.0 % Normal 42.0-54.0 [facility] Comment on above: Performed By: #### C BC #### [facility] [address] [place] [address] Dr. Dwight Waters Hemoglobin (Bld) [Mass/Vol] 16.0 g/dL Normal 14.0-18.0 [facility] Comment on above: Performed By: #### C BC #### [facility] [address] [place] [address] Dr. Dwight Waters IG # 0.02 10e3/ul Normal 0.00-0.03 [facility] Comment on above: Performed By: #### C BC #### [facility] [address] [place] [address] Dr. Dwight Waters IG % 0.3 % Normal 0.0-0.5 [facility] Comment on above: Performed By: #### C BC #### [facility] [address] [place] [address] Dr. Dwight Waters LYMPH # 1.8 103/ul Normal 1.2-3.8 [facility] Comment on above: Performed By: #### C BC #### [facility] [address] [place] [address] Dr. Dwight Waters Lymphocytes/100 WBC (Bld) 26.5 % Normal 20.5-60.0 [facility] Comment on above: Performed By: #### C BC #### [facility] [address] [place] [address] Dr. Dwight Waters MANUAL DIFF REQ NO Normal [facility] Comment on above: Performed By: #### C BC #### [facility] [address] [place] [address] Dr. Dwight Waetrs MCH (RBC) [Entitic mass] 28.1 pg Normal 25.9-34.0 [facility] Comment on above: Performed By: #### C BC #### [facility] [address] [place] [address] Dr. Dwight Waters MCHC (RBC) [Mass/Vol] 32.0 g/dL Normal 29.9-35.2 [facility] Comment on above: Performed By: #### C BC #### [facility] [address] [place] [address] Dr. Dwight Waters MCV (RBC) [Entitic vol] 87.9 fL Normal 80.0-94.0 [facility] Comment on above: Performed By: #### C BC #### [facility] [address] [place] [address] Dr. Dwight Waters MONO # 0.5 103/ul Normal 0.3-0.8 [facility] Comment on above: Performed By: #### C BC #### [facility] [address] [place] [address] Dr. Dwight Waters Monocytes/100 WBC (Bld) 8.1 % Normal 1.7-12.0 [facility] Comment on above: Performed By: #### C BC #### [facility] [address] [place] [address] Dr. Dwight Waters NEUT # 4.0 103/ul Normal 1.4-6.5 [facility] Comment on above: Performed By: #### C BC #### [facility] [address] [place] [address] Dr. Dwight Waters Neutrophils/100 WBC (Bld) 60.8 % Normal 43.0-75.0 [facility] Comment on above: Performed By: #### C BC #### [facility] [address] [place] [address] Dr. Dwight Waters Platelet mean volume (Bld) [Entitic vol] 9.4 fL Critically low 9.5-13.5 [facility] Comment on above: Performed By: #### C BC #### [facility] [address] [place] [address] Dr. Dwight Waters PLT 265 103/ul Normal 150-450 [facility] Comment on above: Performed By: #### C BC #### [facility] [address] [place] [address] Dr. Dwight Waters RBC 5.69 106/ul Normal 4.70-6.10 [facility] Comment on above: Performed By: #### C BC #### [facility] [address] [place] [address] Dr. Dwight Waters WBC 6.6 103/ul Normal 4.0-11.0 [facility] Comment on above: Performed By: #### C BC #### [facility] [address] [place] [address] Dr. Dwight Waters GGTon 09-15-2022 Gamma glutamyl transferase [Catalytic activity/Vol] 23 U/L Normal 15-85 [facility] Comment on above: Performed By: #### U RTPCR #### [facility] [address] [place] [address] Dr. Dwight Waters MAGNESIUMon 09-15-2022 Magnesium [Mass/Vol] 1.8 mg/dL Normal 1.8-2.4 [facility] Comment on above: Performed By: #### U RTPCR #### [facility] [address] [place] [address] Dr. Dwight Waters RENAL FUNCTION PANELon 09-15 Albumin [Mass/Vol] 4.1 g/dL Normal 3.4-5.0 [facility] Comment on above: Performed By: #### C BC #### [facility] [address] [place] [address] Dr. Dwight Waters Calcium [Mass/Vol] 9.3 mg/dL Normal 8.5-10.1 [facility] Comment on above: Performed By: #### C BC #### [facility] [address] [place] [address] Dr. Dwight Waters Chloride [Moles/Vol] 107 mmol/L Normal 98-107 [facility] Comment on above: Performed By: #### C BC #### [facility] [address] [address] [address] Dwight Waters CO2 [Moles/Vol] 25.6 mmol/L Normal 21.0-32.0 [facility] Comment on above: Performed By: #### C BC #### [facility] [address] [address] [address] Dwight Waters Creatinine [Mass/Vol] 1.01 mg/dL Normal 0.70-1.30 [facility] Comment on above: Performed By: #### C BC #### [facility] [address] [address] [address] Dwight Waters EGFR-AF KAZAKH >60 Normal >=60 [facility] Comment on above: Performed By: #### C BC #### [facility] [address] [place] [address] Dr. Dwight Waters EGFR-NON AF KAZAKH >60 Normal >=60 [facility] Comment on above: Performed By: #### C BC #### [facility] [address] [address] [address] Dwight Waters Glucose [Mass/Vol] 119 mg/dL Critically high 74-106 [facility] Comment on above: Performed By: #### C BC #### [facility] [address] [address] [address] Dwight Waters Phosphate [Mass/Vol] 2.8 mg/dL Normal 2.6-4.7 [facility] Comment on above: Performed By: #### C BC #### [facility] [address] [address] [address] Dwight Waters Potassium [Moles/Vol] 4.0 mmol/L Normal 3.5-5.1 [facility] Comment on above: Performed By: #### C BC #### [facility] [address] [place] [address] Dr. Dwight Waters Sodium [Moles/Vol] 141 mmol/L Normal 136-145 [facility] Comment on above: Performed By: #### C BC #### [facility] [address] [address] [address] Dwight Waters Urea nitrogen [Mass/Vol] 15.0 mg/dL Normal 7.0-18.0 [facility] Comment on above: Performed By: #### C BC #### [facility] [address] [place] [address] Dr. Dwight Waters SGOTon 09-15-2022 AST [Catalytic activity/Vol] 18 U/L Normal 15-37 [facility] Comment on above: Performed By: #### U RTPCR #### [facility] [address] [place] [address] Dr. Dwight Waters SGPTon 09-15-2022 ALT [Catalytic activity/Vol] 32 U/L Normal 16-63 [facility] Comment on above: Performed By: #### C BC #### [facility] [address] [place] [address] Dr. Dwight Waters URINE T PROTEIN CREAT RATIOo n 09-15-2022 Protein (U) [Mass/Vol] 14.1 mg/dL Critically high <=12.0 [facility] Comment on above: Performed By: #### U RTPCR #### [facility] [address] [place] [address] Dr. Dwight Waters UR PROT CREAT RAT 0.14 Normal [facility] Comment on above: Performed By: #### U RTPCR #### [facility] [address] [place] [address] Dr. Dwight Waters URINE CREAT 98.89 mg/dL Normal 20.00-300.00 [facility] Comment on above: Performed By: #### U RTPCR #### [facility] [address] [place] [address] Dr. Dwight Waters US CAROTID ART BILon [...] without significant narrowing. Electronically authenticated by: MÓNICA Patrick: 2022-08-28 13:20 Normal [facility] FK506 (TACROLIMUS) WHOLE BLO ODon 08-17-2022 Tacrolimus (FK506), Blood 9.9 ng/mL Normal 2.0-20.0 [facility] Comment on above: Result Comment: Trou gh (immediately following transplant) 15.0 . Trough (steady state, 2 weeks or more after transplant): 3.0 - 8.0 . Performed by LC-MS/MS technology. Performed By: #### F [id number] #### [facility] [address] [place] [address] Dr. Dwight Waters BK VIRUS PCR QUANTon 022 BKV DNA QUANT PCR PLASMA Negative Normal Negative [facility] Comment on above: Result Comment: No B K DNA detected. . The linear range of the assay is 22 - 100,000,000 IU/mL. Performed By: #### U RTPCR #### [facility] [address] [place] [address] Dr. Dwight Waters Log10 BKV DNA Plasma Normal [facility] Comment on above: Performed By: #### U RTPCR #### [facility] [address] [place] [address] Dr. Dwight Waetrs ALBUMINon 08-14-2022 Albumin [Mass/Vol] 4.2 g/dL Normal 3.4-5.0 [facility] Comment on above: Performed By: #### F [id number] #### [facility] [address] [place] [address] Dr. Dwight Waters ALKALINE PHOSPHAon ALP [Catalytic activity/Vol] 92 U/L Normal 46-116 [facility] Comment on above: Performed By: #### C BC #### [facility] [address] [place] [address] Dr. Dwight Waters BILIRUBIN CONJUGATED (DIRECT )on 08-14-2022 BILI, CONJUGATED 0.3 mg/dL Critically high 0.0-0.2 [facility] Comment on above: Performed By: #### F [id number] #### [facility] [address] [place] [address] Dr. Dwight Waters BILIRUBIN TOTALon 08-14-2022 Bilirubin [Mass/Vol] 1.5 mg/dL Critically high 0.2-1.0 [facility] Comment on above: Performed By: #### F [id number] #### [facility] [address] [place] [address] Dr. Dwight Waters BUNon 08-14-2022 Urea nitrogen [Mass/Vol] 11.0 mg/dL Normal 7.0-18.0 [facility] Comment on above: Performed By: #### C BC #### [facility] [address] [place] [address] Dr. Dwight Waters CALCIUMon 08-14-2022 Calcium [Mass/Vol] 9.4 mg/dL Normal 8.5-10.1 [facility] Comment on above: Performed By: #### F [id number] #### [facility] [address] [place] [address] Dr. Dwight Waters CBC AUTO DIFFon 08-14-2022 BASO # 0.0 103/ul Normal 0.0-0.1 [facility] Comment on above: Performed By: #### C MP #### [facility] [address] [place] [address] Dr. Dwight Waters Basophils/100 WBC (Bld) 0.5 % Normal 0.2-2.0 [facility] Comment on above: Performed By: #### C MP #### [facility] [address] [place] [address] Dr. Dwihgt Waters EO # 0.2 103/ul Normal 0.0-0.7 [facility] Comment on above: Performed By: #### C MP #### [facility] [address] [place] [address] Dr. Dwight Waters Eosinophils/100 WBC (Bld) 2.6 % Normal 0.9-7.0 [facility] Comment on above: Performed By: #### C MP #### [facility] [address] [place] [address] Dr. Dwight Waters Erythrocyte distribution width (RBC) [Ratio] 13.1 % Normal 11.0-15.0 [facility] Comment on above: Performed By: #### C MP #### [facility] [address] [place] [address] Dr. Dwight Waters Hematocrit (Bld) [Volume fraction] 47.0 % Normal 42.0-54.0 [facility] Comment on above: Performed By: #### C MP #### [facility] [address] [place] [address] Dr. Dwight Waters Hemoglobin (Bld) [Mass/Vol] 15.3 g/dL Normal 14.0-18.0 [facility] Comment on above: Performed By: #### C MP #### [facility] [address] [place] [address] Dr. Dwight Waters IG # 0.01 10e3/ul Normal 0.00-0.03 [facility] Comment on above: Performed By: #### C MP #### [facility] [address] [place] [address] Dr. Dwight Waters IG % 0.1 % Normal 0.0-0.5 [facility] Comment on above: Performed By: #### C MP #### [facility] [address] [place] [address] Dr. Dwight Waters LYMPH # 2.3 103/ul Normal 1.2-3.8 [facility] Comment on above: Performed By: #### C MP #### [facility] [address] [place] [address] Dr. Dwight Waters Lymphocytes/100 WBC (Bld) 29.8 % Normal 20.5-60.0 [facility] Comment on above: Performed By: #### C MP #### [facility] [address] [place] [address] Dr. Dwight Waters MANUAL DIFF REQ NO Normal [facility] Comment on above: Performed By: #### C MP #### [facility] [address] [place] [address] Dr. Dwight Waters MCH (RBC) [Entitic mass] 28.2 pg Normal 25.9-34.0 [facility] Comment on above: Performed By: #### C MP #### [facility] [address] [address] [address] Dwight Waters MCHC (RBC) [Mass/Vol] 32.6 g/dL Normal 29.9-35.2 [facility] Comment on above: Performed By: #### C MP #### [facility] [address] [address] [address] Dwight Waters MCV (RBC) [Entitic vol] 86.7 fL Normal 80.0-94.0 [facility] Comment on above: Performed By: #### C MP #### [facility] [address] [place] [address] Dr. Dwight Waters MONO # 0.7 103/ul Normal 0.3-0.8 [facility] Comment on above: Performed By: #### C MP #### [facility] [address] [place] [address] Dr. Dwight Waters Monocytes/100 WBC (Bld) 8.5 % Normal 1.7-12.0 [facility] Comment on above: Performed By: #### C MP #### [facility] [address] [place] [address] Dr. Dwight Waters NEUT # 4.5 103/ul Normal 1.4-6.5 [facility] Comment on above: Performed By: #### C MP #### [facility] [address] [place] [address] Dr. Dwight Waters Neutrophils/100 WBC (Bld) 58.5 % Normal 43.0-75.0 [facility] Comment on above: Performed By: #### C MP #### [facility] [address] [place] [address] Dr. Dwight Waters Platelet mean volume (Bld) [Entitic vol] 9.7 fL Normal 9.5-13.5 [facility] Comment on above: Performed By: #### C MP #### [facility] [address] [place] [address] Dr. Dwight Waters PLT 266 103/ul Normal 150-450 [facility] Comment on above: Performed By: #### C MP #### [facility] [address] [place] [address] Dr. Dwight Waters RBC 5.42 106/ul Normal 4.70-6.10 [facility] Comment on above: Performed By: #### C MP #### [facility] [address] [place] [address] Dr. Dwight Waters WBC 7.6 103/ul Normal 4.0-11.0 [facility] Comment on above: Performed By: #### C MP #### [facility] [address] [place] [address] Dr. Dwight Waters CHLORIDEon 08-14-2022 Chloride [Moles/Vol] 104 mmol/L Normal 98-107 [facility] Comment on above: Performed By: #### C BC #### [facility] [address] [place] [address] Dr. Dwight Waters CO2on 08-14-2022 CO2 [Moles/Vol] 27.9 mmol/L Normal 21.0-32.0 [facility] Comment on above: Performed By: #### C BC #### [facility] [address] [place] [address] Dr. Dwight Waters CREATININEon 08-14-2022 Creatinine [Mass/Vol] 1.08 mg/dL Normal 0.70-1.30 [facility] Comment on above: Performed By: #### C BC #### [facility] [address] [place] [address] Dr. Dwight Waters EGFR-AF KAZAKH >60 Normal >=60 [facility] Comment on above: Performed By: #### C BC #### [facility] [address] [place] [address] Dr. Dwight Waters EGFR-NON AF KAZAKH >60 Normal >=60 [facility] Comment on above: Performed By: #### C BC #### [facility] [address] [place] [address] Dr. Dwight Waters GGTon 08-14-2022 Gamma glutamyl transferase [Catalytic activity/Vol] 24 U/L Normal 15-85 [facility] Comment on above: Performed By: #### F [id number] #### [facility] [address] [place] [address] Dr. Dwight Waters GLUCOSE BLOODon 08-14-2022 Glucose [Mass/Vol] 111 mg/dL Critically high 74-106 [facility] Comment on above: Performed By: #### C BC #### [facility] [address] [place] [address] Dr. Dwight Waters MAGNESIUMon 08-14-2022 Magnesium [Mass/Vol] 1.4 mg/dL Critically low 1.8-2.4 [facility] Comment on above: Performed By: #### C BC #### [facility] [address] [place] [address] Dr. Dwight Waters NAon 08-14-2022 Sodium [Moles/Vol] 140 mmol/L Normal 136-145 [facility] Comment on above: Performed By: #### F [id number] #### [facility] [address] [place] [address] Dr. Dwight Waters PHOSPHORUSon 08-14-2022 Phosphate [Mass/Vol] 3.1 mg/dL Normal 2.6-4.7 [facility] Comment on above: Performed By: #### C BC #### [facility] [address] [place] [address] Dr. Dwight Waters POTASSIUMon 08-14-2022 Potassium [Moles/Vol] 3.5 mmol/L Normal 3.5-5.1 [facility] Comment on above: Performed By: #### C BC #### [facility] [address] [place] [address] Dr. Dwight Waters SGOTon 08-14-2022 AST [Catalytic activity/Vol] 17 U/L Normal 15-37 [facility] Comment on above: Performed By: #### F [id number] #### [facility] [address] [place] [address] Dr. Dwight Waters SGPTon 08-14-2022 ALT [Catalytic activity/Vol] 22 U/L Normal 16-63 [facility] Comment on above: Performed By: #### F [id number] #### [facility] [address] [place] [address] Dr. Dwight Waters URINE T PROTEIN CREAT RATIOo n 08-14-2022 Protein (U) [Mass/Vol] 10.7 mg/dL Normal <=12.0 [facility] Comment on above: Performed By: #### F [id number] #### [facility] [address] [address] [address] Dwight Waters UR PROT CREAT RAT 0.10 Normal [facility] Comment on above: Performed By: #### F [id number] #### [facility] [address] [address] [address] Dwight Waters URINE CREAT 104.28 mg/dL Normal 20.00-300.00 [facility] Comment on above: Performed By: #### F [id number] #### [facility] [address] [place] [address] Dr. Dwight Waters NEPHROSTOMY TUBE REMOVALon 0 [...] [facility] Radiology Study observation (narrative) [facility] FK506 (TACROLIMUS) WHOLE BLO ODon 07-06-2022 Tacrolimus (FK506), Blood 9.5 ng/mL Normal 2.0-20.0 [facility] Comment on above: Result Comment: Trou gh (immediately following transplant) 15.0 . Trough (steady state, 2 weeks or more after transplant): 3.0 - 8.0 . Performed by LC-MS/MS technology. Performed By: #### C MP #### [facility] [address] [place] [address] Dr. Dwight Waters ALBUMINon 07-03-2022 Albumin [Mass/Vol] 3.7 g/dL Normal 3.4-5.0 [facility] Comment on above: Performed By: #### U RTPCR #### [facility] [address] [place] [address] Dr. Dwight Waters ALKALINE PHOSPHAon ALP [Catalytic activity/Vol] 76 U/L Normal 46-116 [facility] Comment on above: Performed By: #### U RTPCR #### [facility] [address] [place] [address] Dr. Dwight Waters BILIRUBIN CONJUGATED (DIRECT )on 07-03-2022 BILI, CONJUGATED 0.3 mg/dL Critically high 0.0-0.2 [facility] Comment on above: Performed By: #### C BC #### [facility] [address] [place] [address] Dr. Dwight Waters BILIRUBIN TOTALon 07-03-2022 Bilirubin [Mass/Vol] 1.4 mg/dL Critically high 0.2-1.0 [facility] Comment on above: Performed By: #### C BC #### [facility] [address] [place] [address] Dr. Dwight Waters BUNon 07-03-2022 Urea nitrogen [Mass/Vol] 15.0 mg/dL Normal 7.0-18.0 [facility] Comment on above: Performed By: #### C BC #### [facility] [address] [place] [address] Dr. Dwight Waters CALCIUMon 07-03-2022 Calcium [Mass/Vol] 9.4 mg/dL Normal 8.5-10.1 [facility] Comment on above: Performed By: #### U RTPCR #### [facility] [address] [place] [address] Dr. Dwight Waters CBC AUTO DIFFon 07-03-2022 BASO # 0.0 103/ul Normal 0.0-0.1 [facility] Comment on above: Performed By: #### U RTPCR #### [facility] [address] [place] [address] Dr. Dwight Waters Basophils/100 WBC (Bld) 0.6 % Normal 0.2-2.0 [facility] Comment on above: Performed By: #### U RTPCR #### [facility] [address] [place] [address] Dr. Dwight Waters EO # 0.2 103/ul Normal 0.0-0.7 [facility] Comment on above: Performed By: #### U RTPCR #### [facility] [address] [place] [address] Dr. Dwight Waters Eosinophils/100 WBC (Bld) 3.5 % Normal 0.9-7.0 [facility] Comment on above: Performed By: #### U RTPCR #### [facility] [address] [place] [address] Dr. Dwight Waters Erythrocyte distribution width (RBC) [Ratio] 12.9 % Normal 11.0-15.0 [facility] Comment on above: Performed By: #### U RTPCR #### [facility] [address] [place] [address] Dr. Dwight Waters Hematocrit (Bld) [Volume fraction] 44.2 % Normal 42.0-54.0 [facility] Comment on above: Performed By: #### U RTPCR #### [facility] [address] [place] [address] Dr. Dwight Waters Hemoglobin (Bld) [Mass/Vol] 14.6 g/dL Normal 14.0-18.0 [facility] Comment on above: Performed By: #### U RTPCR #### [facility] [address] [address] [address] Dwight Waters IG # 0.02 10e3/ul Normal 0.00-0.03 [facility] Comment on above: Performed By: #### U RTPCR #### [facility] [address] [place] [address] Dr. Dwight Waters IG % 0.3 % Normal 0.0-0.5 [facility] Comment on above: Performed By: #### U RTPCR #### [facility] [address] [place] [address] Dr. Dwight Waters LYMPH # 2.0 103/ul Normal 1.2-3.8 [facility] Comment on above: Performed By: #### U RTPCR #### [facility] [address] [place] [address] Dr. Dwight Waters Lymphocytes/100 WBC (Bld) 28.4 % Normal 20.5-60.0 [facility] Comment on above: Performed By: #### U RTPCR #### [facility] [address] [place] [address] Dr. Dwight Waters MANUAL DIFF REQ NO Normal [facility] Comment on above: Performed By: #### U RTPCR #### [facility] [address] [place] [address] Dr. Dwight Waters MCH (RBC) [Entitic mass] 28.6 pg Normal 25.9-34.0 [facility] Comment on above: Performed By: #### U RTPCR #### [facility] [address] [place] [address] Dr. Dwight Waters MCHC (RBC) [Mass/Vol] 33.0 g/dL Normal 29.9-35.2 [facility] Comment on above: Performed By: #### U RTPCR #### [facility] [address] [place] [address] Dr. Dwight Waters MCV (RBC) [Entitic vol] 86.7 fL Normal 80.0-94.0 [facility] Comment on above: Performed By: #### U RTPCR #### [facility] [address] [address] [address] Dwight Waters MONO # 0.6 103/ul Normal 0.3-0.8 [facility] Comment on above: Performed By: #### U RTPCR #### [facility] [address] [place] [address] Dr. Dwight Waters Monocytes/100 WBC (Bld) 9.1 % Normal 1.7-12.0 [facility] Comment on above: Performed By: #### U RTPCR #### [facility] [address] [place] [address] Dr. Dwight Waters NEUT # 4.0 103/ul Normal 1.4-6.5 [facility] Comment on above: Performed By: #### U RTPCR #### [facility] [address] [place] [address] Dr. Dwight Waters Neutrophils/100 WBC (Bld) 58.1 % Normal 43.0-75.0 [facility] Comment on above: Performed By: #### U RTPCR #### [facility] [address] [place] [address] Dr. Dwight Waters Platelet mean volume (Bld) [Entitic vol] 9.5 fL Normal 9.5-13.5 [facility] Comment on above: Performed By: #### U RTPCR #### [facility] [address] [place] [address] Dr. Dwight Waters PLT 292 103/ul Normal 150-450 [facility] Comment on above: Performed By: #### U RTPCR #### [facility] [address] [place] [address] Dr. Dwight Waters RBC 5.10 106/ul Normal 4.70-6.10 [facility] Comment on above: Performed By: #### U RTPCR #### [facility] [address] [place] [address] Dr. Dwight Waters WBC 6.9 103/ul Normal 4.0-11.0 [facility] Comment on above: Performed By: #### U RTPCR #### [facility] [address] [address] [address] Dwight Waters CHLORIDEon 07-03-2022 Chloride [Moles/Vol] 108 mmol/L Critically high 98-107 [facility] Comment on above: Performed By: #### C BC #### [facility] [address] [place] [address] Dr. Dwight Waters CO2on 07-03-2022 CO2 [Moles/Vol] 25.2 mmol/L Normal 21.0-32.0 [facility] Comment on above: Performed By: #### C BC #### [facility] [address] [place] [address] Dr. Dwight Waters CREATININEon 07-03-2022 Creatinine [Mass/Vol] 1.03 mg/dL Normal 0.70-1.30 [facility] Comment on above: Performed By: #### U RTPCR #### [facility] [address] [place] [address] Dr. Dwight Waters EGFR-AF KAZAKH >60 Normal >=60 [facility] Comment on above: Performed By: #### U RTPCR #### [facility] [address] [place] [address] Dr. Dwight Waters EGFR-NON AF KAZAKH >60 Normal >=60 [facility] Comment on above: Performed By: #### U RTPCR #### [facility] [address] [place] [address] Dr. Dwight Waters GGTon 07-03-2022 Gamma glutamyl transferase [Catalytic activity/Vol] 31 U/L Normal 15-85 [facility] Comment on above: Performed By: #### U RTPCR #### [facility] [address] [place] [address] Dr. Dwight Waters GLUCOSE BLOODon 07-03-2022 Glucose [Mass/Vol] 119 mg/dL Critically high 74-106 [facility] Comment on above: Performed By: #### U RTPCR #### [facility] [address] [place] [address] Dr. Dwight Waters MAGNESIUMon 07-03-2022 Magnesium [Mass/Vol] 1.4 mg/dL Critically low 1.8-2.4 [facility] Comment on above: Performed By: #### C BC #### [facility] [address] [place] [address] Dr. Dwight Waters NAon 07-03-2022 Sodium [Moles/Vol] 142 mmol/L Normal 136-145 [facility] Comment on above: Performed By: #### C MP #### [facility] [address] [place] [address] Dr. Dwight Waters PHOSPHORUSon 07-03-2022 Phosphate [Mass/Vol] 3.4 mg/dL Normal 2.6-4.7 [facility] Comment on above: Performed By: #### C BC #### [facility] [address] [place] [address] Dr. Dwight Waters POTASSIUMon 07-03-2022 Potassium [Moles/Vol] 4.1 mmol/L Normal 3.5-5.1 [facility] Comment on above: Performed By: #### C BC #### [facility] [address] [place] [address] Dr. Dwight Waters SGOTon 07-03-2022 AST [Catalytic activity/Vol] 14 U/L Critically low 15-37 [facility] Comment on above: Performed By: #### C BC #### [facility] [address] [place] [address] Dr. Dwight Waters SGPTon 07-03-2022 ALT [Catalytic activity/Vol] 25 U/L Normal 16-63 [facility] Comment on above: Performed By: #### C BC #### [facility] [address] [place] [address] Dr. Dwight Waters US KIDNEYSon 07-03-2022 US KIDNEYS Ultrasound kidneys, bilateral HISTORY: Transplant of kidney , pain in the right lower quadrant COMPARISON: None. TECHNIQUE: Transabdominal ultrasound imaging of both kidneys was performed. FINDINGS: The [place] kidneys are diffusely echogenic and atrophic with cortical thinning. The right kidney measures 8.3 x 3.5 x 4.07 m and the left measures 9.9 x 3.8 x 3.6 cm. No hydronephrosis of the [place] kidneys. There is a renal transplant in [...] stone involving the renal transplant. 2. Atrophic [place] kidneys. 3. Normal bladder. Electronically authenticated by: ARCELIA PIZARRO Date: 2022-07-03 17:22 Normal [facility] CT Abdomen and Pelvis WO geoff traston 06-27-2022 IMPRESSION: 1. Both [place] kidneys are atrophic with improvement in right-sided [...] Adrenals: Adrenal glands are unremarkable. Kidneys: Both [place] kidneys are atrophic. Interval improvement in right [place] kidney hydronephrosis since May 15, 2022. Status [...] Adrenals: Adrenal glands are unremarkable. Kidneys: Both [place] kidneys are atrophic. Interval improvement in right [place] kidney hydronephrosis since May 15, 2022. Status [...] aggressive osseous lesions. IMPRESSION IMPRESSION: 1. Both [place] kidneys are atrophic with improvement in right-sided hydronephrosis since May 15, 2022. 2. 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 No hydronephrosis. No discrete perinephric collection. 3. Partially imaged postsurgical changes related to prior liver transplant. 4. The bladder is decompressed, limiting evaluation. [facility] Radiology Study observation (narrative) [facility] CT Abdomen and Pelvis WO con trastOrdered By: Gera Lu on 06-27-2022 [facility] Work Phone: CBC AUTO DIFFon 06-18-2022 BASO # 0.0 103/ul Normal 0.0-0.1 [facility] Comment on above: Performed By: #### U RTPCR #### [facility] [address] [address] [address] Dwight Waters Basophils/100 WBC (Bld) 0.5 % Normal 0.2-2.0 [facility] Comment on above: Performed By: #### U RTPCR #### [facility] [address] [address] [address] Dwight Waters EO # 0.2 103/ul Normal 0.0-0.7 [facility] Comment on above: Performed By: #### U RTPCR #### [facility] [address] [address] [address] Dwight Waters Eosinophils/100 WBC (Bld) 2.3 % Normal 0.9-7.0 [facility] Comment on above: Performed By: #### U RTPCR #### [facility] [address] [place] [address] Dr. Dwight Waters Erythrocyte distribution width (RBC) [Ratio] 12.9 % Normal 11.0-15.0 [facility] Comment on above: Performed By: #### U RTPCR #### [facility] [address] [place] [address] Dr. Dwight Waters Hematocrit (Bld) [Volume fraction] 41.2 % Critically low 42.0-54.0 [facility] Comment on above: Performed By: #### U RTPCR #### [facility] [address] [place] [address] Dr. Dwight Waters Hemoglobin (Bld) [Mass/Vol] 13.3 g/dL Critically low 14.0-18.0 [facility] Comment on above: Performed By: #### U RTPCR #### [facility] [address] [place] [address] Dr. Dwight Waters IG # 0.04 10e3/ul Critically high 0.00-0.03 [facility] Comment on above: Performed By: #### U RTPCR #### [facility] [address] [place] [address] Dr. Dwight Waters IG % 0.5 % Normal 0.0-0.5 [facility] Comment on above: Performed By: #### U RTPCR #### [facility] [address] [place] [address] Dr. Dwight Waters LYMPH # 2.0 103/ul Normal 1.2-3.8 [facility] Comment on above: Performed By: #### U RTPCR #### [facility] [address] [place] [address] Dr. Dwight Waters Lymphocytes/100 WBC (Bld) 22.9 % Normal 20.5-60.0 [facility] Comment on above: Performed By: #### U RTPCR #### [facility] [address] [place] [address] Dr. Dwight Waters MANUAL DIFF REQ NO Normal [facility] Comment on above: Performed By: #### U RTPCR #### [facility] [address] [place] [address] Dr. Dwight Waters MCH (RBC) [Entitic mass] 28.7 pg Normal 25.9-34.0 [facility] Comment on above: Performed By: #### U RTPCR #### [facility] [address] [address] [address] Dwight Waters MCHC (RBC) [Mass/Vol] 32.3 g/dL Normal 29.9-35.2 [facility] Comment on above: Performed By: #### U RTPCR #### [facility] [address] [address] [address] Dwight Waters MCV (RBC) [Entitic vol] 88.8 fL Normal 80.0-94.0 [facility] Comment on above: Performed By: #### U RTPCR #### [facility] [address] [place] [address] Dr. Dwight Waters MONO # 0.8 103/ul Normal 0.3-0.8 [facility] Comment on above: Performed By: #### U RTPCR #### [facility] [address] [place] [address] Dr. Dwight Waters Monocytes/100 WBC (Bld) 9.7 % Normal 1.7-12.0 [facility] Comment on above: Performed By: #### U RTPCR #### [facility] [address] [place] [address] Dr. Dwight Waters NEUT # 5.6 103/ul Normal 1.4-6.5 [facility] Comment on above: Performed By: #### U RTPCR #### [facility] [address] [place] [address] Dr. Dwight Waters Neutrophils/100 WBC (Bld) 64.1 % Normal 43.0-75.0 [facility] Comment on above: Performed By: #### U RTPCR #### [facility] [address] [place] [address] Dr. Dwight Waters Platelet mean volume (Bld) [Entitic vol] 10.0 fL Normal 9.5-13.5 [facility] Comment on above: Performed By: #### U RTPCR #### [facility] [address] [place] [address] Dr. Dwight Waters PLT 270 103/ul Normal 150-450 [facility] Comment on above: Performed By: #### U RTPCR #### [facility] [address] [address] [address] Dwight Waters RBC 4.64 106/ul Critically low 4.70-6.10 [facility] Comment on above: Performed By: #### U RTPCR #### [facility] [address] [address] [address] Dwight Waters WBC 8.7 103/ul Normal 4.0-11.0 [facility] Comment on above: Performed By: #### U RTPCR #### [facility] [address] [place] [address] Dr. Dwight Waters CULTURE URINEon 06-18-2022 CULTURE URINE Culture Observations : NO GROWTH. Normal [facility] Comment on above: Performed By: #### U RTPCR #### [facility] [address] [place] [address] Dr. Dwight Waters Covid-19 PCR ([facility]on 05-31 SARS-CoV-2 (COVID-19) RNA ESTELITA+probe Ql (Unsp spec) Not detected Normal NOT DETECTED [facility] Comment on above: Result Comment: [...] for this test is supported by the [place] [employer] and [employer] Service's declaration that [...] used). Performed By: #### C BC #### [facility] [address] [place] [address] Dr. Dwight Waters ER URINE PROFILEon 2 Bilirubin Ql (U) Negative Normal NEGATIVE [facility] Comment on above: Performed By: #### U RTPCR #### [facility] [address] [place] [address] Dr. Dwight Waters Clarity (U) CLEAR Normal CLEAR [facility] Comment on above: Performed By: #### U RTPCR #### [facility] [address] [place] [address] Dr. Dwight Waters Color (U) YELLOW Normal YELLOW [facility] Comment on above: Performed By: #### U RTPCR #### [facility] [address] [place] [address] Dr. Dwight Waters ERUBERTHA A micrscopic examina tion will be performed if indicated. Normal [facility] Comment on above: Performed By: #### U RTPCR #### [facility] [address] [place] [address] Dr. Dwight Waters Glucose Ql (U) Negative Normal NEGATIVE [facility] Comment on above: Performed By: #### U RTPCR #### [facility] [address] [place] [address] Dr. Dwight Waters Hemoglobin Ql (U) LARGE Abnormal NEGATIVE [facility] Comment on above: Performed By: #### U RTPCR #### [facility] [address] [place] [address] Dr. Dwight Waters Ketones Ql (U) Negative Normal NEGATIVE [facility] Comment on above: Performed By: #### U RTPCR #### [facility] [address] [place] [address] Dr. Dwight Waters LEUKOCYTES TRACE Abnormal NEGATIVE [facility] Comment on above: Performed By: #### U RTPCR #### [facility] [address] [place] [address] Dr. Dwight Waters Nitrite Ql (U) Negative Normal NEGATIVE [facility] Comment on above: Performed By: #### U RTPCR #### [facility] [address] [place] [address] Dr. Dwight Waters pH (U) 6.0 [pH] Normal 5-9 [facility] Comment on above: Performed By: #### U RTPCR #### [facility] [address] [place] [address] Dr. Dwight Waters Protein (U) [Mass/Vol] 30 mg/dL Abnormal NEGATIVE/ TRACE [facility] Comment on above: Performed By: #### U RTPCR #### [facility] [address] [place] [address] Dr. Dwight Waters SPEC GRAVITY >=1.030 Abnormal 1.005-<=1.02 5 [facility] Comment on above: Performed By: #### U RTPCR #### [facility] [address] [place] [address] Dr. Dwight Waters UR MICRO IND INDICATED Normal [facility] Comment on above: Performed By: #### U RTPCR #### [facility] [address] [place] [address] Dr. Dwight Waters Urobilinogen Qn (U) 0.2 {Alyssa'U}/dL Normal 0.2 - 1. 0 [facility] Comment on above: Performed By: #### U RTPCR #### [facility] [address] [place] [address] Dr. Dwight Waters PROF 14(COMP METB)on 022 Albumin [Mass/Vol] 3.7 g/dL Normal 3.4-5.0 [facility] Comment on above: Performed By: #### C MP #### [facility] [address] [place] [address] Dr. Dwight Waters Albumin/Globulin [Mass ratio] 0.9 {ratio} Normal [facility] Comment on above: Performed By: #### C MP #### [facility] [address] [place] [address] Dr. Dwight Waters ALP [Catalytic activity/Vol] 80 U/L Normal 46-116 [facility] Comment on above: Performed By: #### C MP #### [facility] [address] [place] [address] Dr. Dwight Waters ALT [Catalytic activity/Vol] 24 U/L Normal 16-63 [facility] Comment on above: Performed By: #### C MP #### [facility] [address] [address] [address] Dwight Waters Anion gap [Moles/Vol] 12.9 mmol/L Normal [facility] Comment on above: Performed By: #### C MP #### [facility] [address] [address] [address] Dwight Waters AST [Catalytic activity/Vol] 17 U/L Normal 15-37 [facility] Comment on above: Performed By: #### C MP #### [facility] [address] [address] [address] Dwight Waters Bilirubin [Mass/Vol] 0.8 mg/dL Normal 0.2-1.0 [facility] Comment on above: Performed By: #### C MP #### [facility] [address] [place] [address] Dr. Dwight Waters Calcium [Mass/Vol] 9.4 mg/dL Normal 8.5-10.1 [facility] Comment on above: Performed By: #### C MP #### [facility] [address] [place] [address] Dr. Dwight Waters Chloride [Moles/Vol] 106 mmol/L Normal 98-107 [facility] Comment on above: Performed By: #### C MP #### [facility] [address] [place] [address] Dr. Dwight Waters CO2 [Moles/Vol] 25.3 mmol/L Normal 21.0-32.0 [facility] Comment on above: Performed By: #### C MP #### [facility] [address] [place] [address] Dr. Dwight Waters Creatinine [Mass/Vol] 1.29 mg/dL Normal 0.70-1.30 [facility] Comment on above: Performed By: #### C MP #### [facility] [address] [place] [address] Dr. Dwight Waters EGFR-AF KAZAKH >60 Normal >=60 [facility] Comment on above: Performed By: #### C MP #### [facility] [address] [place] [address] Dr. Dwight Waters EGFR-NON AF KAZAKH 59 mL/min/1.73m2 Critically low >=60 [facility] Comment on above: Performed By: #### C MP #### [facility] [address] [place] [address] Dr. Dwight Waters Globulin (S) [Mass/Vol] 4.2 g/dL Normal [facility] Comment on above: Performed By: #### C MP #### [facility] [address] [address] [address] Dwight Waters Glucose [Mass/Vol] 106 mg/dL Normal 74-106 [facility] Comment on above: Performed By: #### C MP #### [facility] [address] [place] [address] Dr. Dwight Waters Potassium [Moles/Vol] 4.2 mmol/L Normal 3.5-5.1 [facility] Comment on above: Performed By: #### C MP #### [facility] [address] [place] [address] Dr. Dwight Waters Protein [Mass/Vol] 7.9 g/dL Normal 6.4-8.2 [facility] Comment on above: Performed By: #### C MP #### [facility] [address] [place] [address] Dr. Dwight Waters Sodium [Moles/Vol] 140 mmol/L Normal 136-145 [facility] Comment on above: Performed By: #### C MP #### [facility] [address] [place] [address] Dr. Dwight Waters Urea nitrogen [Mass/Vol] 22.0 mg/dL Critically high 7.0-18.0 [facility] Comment on above: Performed By: #### C MP #### [facility] [address] [place] [address] Dr. Dwight Waters Urea nitrogen/Creatinine [Mass ratio] 17.1 mg/mg Normal [facility] Comment on above: Performed By: #### C MP #### [facility] [address] [place] [address] Dr. Dwight Waters URINE MICROSCOPIC ONLYon BACTERIA TRACE Abnormal NONE SEEN [facility] Comment on above: Performed By: #### U RTPCR #### [facility] [address] [place] [address] Dr. Dwight Waters Bacteria identified Cx Nom (U) INDICATED Normal [facility] Comment on above: Performed By: #### U RTPCR #### [facility] [address] [place] [address] Dr. Dwight Waters CAST NONE SEEN Normal NONE SEEN [facility] Comment on above: Performed By: #### U RTPCR #### [facility] [address] [place] [address] Dr. Dwight Waters Crystals LM Nom (Urine sed) NONE SEEN Normal NONE SEEN [facility] Comment on above: Performed By: #### U RTPCR #### [facility] [address] [place] [address] Dr. Dwight Waters Epithelial cells LM Ql (Urine sed) NONE SEEN Normal NONE SEEN /RARE [facility] Comment on above: Performed By: #### U RTPCR #### [facility] [address] [place] [address] Dr. Dwight Waters MUCOUS NONE SEEN Normal NONE SEEN [facility] Comment on above: Performed By: #### U RTPCR #### [facility] [address] [place] [address] Dr. Dwight Waters RBC 5-10 Abnormal 0-2 [facility] Comment on above: Performed By: #### U RTPCR #### [facility] [address] [place] [address] Dr. Dwight Waters WBC 10-20 Abnormal NONE SEEN [facility] Comment on above: Performed By: #### U RTPCR #### [facility] [address] [place] [address] Dr. Dwight Waters ALLOSCREEN RECIPIENT (POST T X PRA)on 06-13-2022 AB SPECIFICITY CLASS COMMENT Antibody Specificity testing performed by [employer]. cPRA calculation based on identification of HLA antibody specificities at MFI >2000 and/or presence of CREG antibodies. [facility] Comment on above: Some of [...] the [facility] Clinical Histocompatibility Laboratory. [facility] number: [id number]. CLIA number: [id number], Director: Carlito Merchant, PhD, D([facility]). ANTIBODY SPECIFICITY INTERPRETATION Detected [facility] CLASS I SPECIFICITIES Not detected [facility] CLASS II SPECIFICITIES Not detected [facility] HLA Ab (S) 0 % 0 [facility] EXTRA MICROon 06-13-2022 [facility] URINE CULTUREOrdered By: Jah Upton on 06-13-2022 Bacteria identified Cx Nom (Unsp spec) Growth [facility] Bacteria identified Cx Nom (Unsp spec) 10,000-50,000 CFU/mL Mixed skin shimon [facility] Comment on above: Multiple bacterial m orphotypes present. Suggest appropriate recollection if clinically indicated. [facility] CBC,PLATELETSon 06-12-2022 Erythrocyte distribution width (RBC) [Ratio] 13.0 % 10.9 - 14.3 % [facility] Hematocrit (Bld) [Volume fraction] 43.2 % 39.6 - 48.8 % [facility] Hemoglobin (Bld) [Mass/Vol] 13.9 g/dL 13.4 - 16.8 g/dL [facility] Interpretation and review of laboratory results Normal [facility] MCH (RBC) [Entitic mass] 28.7 pg 26.1 - 33.3 pg [facility] MCHC (RBC) [Mass/Vol] 32.2 g/dL 31.9 - 36.5 g/dL [facility] MCV (RBC) [Entitic vol] 89.1 fL 79.0 - 94.5 fL [facility] Platelet mean volume (Bld) [Entitic vol] 10.5 fL 8.7 - 12.3 fL [facility] Platelets (Bld) [#/Vol] 269 10*3/uL 146 - 337 K/uL [facility] RBC (Bld) [#/Vol] 4.85 10*6/[facility]L [facility] [#/Vol] 7.68 10*3/uL 3.73 - 10. 10 K/uL [facility] CHEM 7 (LYTES,BUN,CREA,GLUC) on 06-12-2022 Anion gap [Moles/Vol] 14 mmol/L 7 - 17 mmol/L [facility] Chloride [Moles/Vol] 106 mmol/L 98 - 10 8 mmol/L [facility] CO2 [Moles/Vol] 25 mmol/L 21 - 31 mmol/L [facility] Creatinine [Mass/Vol] 1.26 mg/dL 0.70 - 1.30 mg/dL [facility] GFR/1.73 sq M.predicted CKD-EPI (S/P/Bld) [Vol rate/Area] 69 >=60 mL/min/1.73m 2 [facility] Comment on above: Reported eGFR is bas ed on the CKD-EPI 2020 equation using creatinine, age, and sex. Glucose [Mass/Vol] 83 mg/dL 70 - 99 mg/dL [facility] Osmolality Calc [Osmolality] 295 [facility] Potassium [Moles/Vol] 3.8 mmol/L 3.5 - 5.0 mmol/L [facility] Sodium [Moles/Vol] 141 mmol/L 135 - 145 mmol/L [facility] Urea nitrogen [Mass/Vol] 18 mg/dL 7 - 25 mg/dL [facility] Urea nitrogen/Creatinine [Mass ratio] 14 mg/mg [facility] GGTon 06-12-2022 Gamma glutamyl transferase [Catalytic activity/Vol] 20 U/L 8 - 64 U/L [facility] HEMOGLOBIN [id number] By: [employer] on 06-12-2022 Average glucose Estimated from glycated hemoglobin (Bld) [Mass/Vol] 126 mg/dL [facility] HbA1c (Bld) [Mass fraction] 6.0 % High 4.7 - 5.6 % [facility] Interpretation and review of laboratory results Abnormal [facility] HEPATIC FUNCTION PANELon Albumin [Mass/Vol] 4.3 g/dL 3.5 - 5.0 g/dL [facility] ALP [Catalytic activity/Vol] 78 U/L 32 - 126 U/L [facility] ALT [Catalytic activity/Vol] 12 U/L 10 - 52 U/L [facility] AST [Catalytic activity/Vol] 16 U/L 10 - 39 U/L [facility] Bilirubin [Mass/Vol] 1.0 mg/dL <1.5 [facility] Bilirubin.direct [Mass/Vol] 0.2 mg/dL <0.3 [facility] Protein [Mass/Vol] 7.5 g/dL 6.4 - 8.3 g/dL [facility] No Panel Informationon 06-12 Interpretation and review of laboratory results Normal [facility] PTH INTACTOrdered By: Marli Lizarraga on 06-12-2022 Interpretation and review of laboratory results Abnormal [facility] Parathyrin.intact [Mass/Vol] 79.7 pg/mL High 14.0 - 72.0 pg/mL [facility] URINALYSIS REFLEX TO CULTURE PERFORMABLEon 06-12-2022 Appearance (U) Clear Clear [facility] Bacteria LM Ql (Urine sed) ABSENT ABSENT [facility] Color (U) Yellow Yellow [facility] Epithelial cells.squamous LM Ql (Urine sed) 1/hpf = 1+ 1/hpf = 1+, 2-5/hpf = 2+, 0/hpf = 0+, ABSENT [facility] Glucose Test strip (U) [Mass/Vol] Negative Negative [facility] Interpretation and review of laboratory results Abnormal [facility] Ketones (U) [Mass/Vol] Trace Abnormal Negative [facility] Leukocyte esterase Test strip Ql (U) Small Abnormal Negative [facility] Nitrite Ql (U) Negative Negative [facility] pH (U) 5.5 [pH] 5.0 - 7.0 [facility] Protein (U) [Mass/Vol] 30 mg/dL Abnormal Negative [facility] RBC (U) [#/Vol] Trace Abnormal Negative [facility] RBC LM.HPF (Urine sed) [#/Area] 0-2 0 - 2 /HPF [facility] Specific gravity (U) [Rel density] 1.026 [facility] Urobilinogen (U) [Mass/Vol] 0.2 E.U./dL 0.2 E.U/dL, 1.0 E.U/dL [facility] WBC LM.HPF (Urine sed) [#/Area] 10-20 Abnormal 0 - 5 /HPF [facility] URINE PROTEIN/CREA RATIO, RA NDOMon 06-12-2022 Creatinine (24H U) [Mass/Vol] 231.68 mg/dL [facility] Protein Unsp time (U) [Mass/Vol] 49 mg/dL [facility] Protein/Creatinine (U) [Mass ratio] 0.211 mg/g [facility] FK506 (TACROLIMUS) WHOLE BLO ODon 06-09-2022 Tacrolimus (FK506), Blood 9.8 ng/mL Normal 2.0-20.0 [facility] Comment on above: Result Comment: Trou gh (immediately following transplant) 15.0 . Trough (steady state, 2 weeks or more after transplant): 3.0 - 8.0 . Performed by LC-MS/MS technology. Performed By: #### U RTPCR #### [facility] [address] [place] [address] Dr. Dwight Waters ALBUMINon 06-06-2022 Albumin [Mass/Vol] 3.8 g/dL Normal 3.4-5.0 [facility] Comment on above: Performed By: #### C MP #### [facility] [address] [place] [address] Dr. Dwight Waters ALKALINE PHOSPHAon ALP [Catalytic activity/Vol] 82 U/L Normal 46-116 [facility] Comment on above: Performed By: #### C MP #### [facility] [address] [place] [address] Dr. Dwight Waters BILIRUBIN CONJUGATED (DIRECT )on 06-06-2022 BILI, CONJUGATED 0.2 mg/dL Normal 0.0-0.2 [facility] Comment on above: Performed By: #### C BC #### [facility] [address] [place] [address] Dr. Dwight Waters BILIRUBIN TOTALon 06-06-2022 Bilirubin [Mass/Vol] 1.0 mg/dL Normal 0.2-1.0 [facility] Comment on above: Performed By: #### C BC #### [facility] [address] [place] [address] Dr. Dwight Waters BUNon 06-06-2022 Urea nitrogen [Mass/Vol] 18.0 mg/dL Normal 7.0-18.0 [facility] Comment on above: Performed By: #### C BC #### [facility] [address] [place] [address] Dr. Dwight Waters CALCIUMon 06-06-2022 Calcium [Mass/Vol] 9.4 mg/dL Normal 8.5-10.1 [facility] Comment on above: Performed By: #### C MP #### [facility] [address] [place] [address] Dr. Dwight Waters CBC AUTO DIFFon 06-06-2022 BASO # 0.1 103/ul Normal 0.0-0.1 [facility] Comment on above: Performed By: #### U RTPCR #### [facility] [address] [place] [address] Dr. Dwight Waters Basophils/100 WBC (Bld) 0.8 % Normal 0.2-2.0 [facility] Comment on above: Performed By: #### U RTPCR #### [facility] [address] [place] [address] Dr. Dwight Waters EO # 0.3 103/ul Normal 0.0-0.7 [facility] Comment on above: Performed By: #### U RTPCR #### [facility] [address] [place] [address] Dr. Dwight Waters Eosinophils/100 WBC (Bld) 3.3 % Normal 0.9-7.0 [facility] Comment on above: Performed By: #### U RTPCR #### [facility] [address] [place] [address] Dr. Dwight Waters Erythrocyte distribution width (RBC) [Ratio] 12.4 % Normal 11.0-15.0 [facility] Comment on above: Performed By: #### U RTPCR #### [facility] [address] [place] [address] Dr. Dwight Waters Hematocrit (Bld) [Volume fraction] 45.1 % Normal 42.0-54.0 [facility] Comment on above: Performed By: #### U RTPCR #### [facility] [address] [place] [address] Dr. Dwight Waters Hemoglobin (Bld) [Mass/Vol] 14.4 g/dL Normal 14.0-18.0 [facility] Comment on above: Performed By: #### U RTPCR #### [facility] [address] [place] [address] Dr. Dwight Waters IG # 0.01 10e3/ul Normal 0.00-0.03 [facility] Comment on above: Performed By: #### U RTPCR #### [facility] [address] [place] [address] Dr. Dwight Waters IG % 0.1 % Normal 0.0-0.5 [facility] Comment on above: Performed By: #### U RTPCR #### [facility] [address] [place] [address] Dr. Dwight Waters LYMPH # 2.2 103/ul Normal 1.2-3.8 [facility] Comment on above: Performed By: #### U RTPCR #### [facility] [address] [place] [address] Dr. Dwight Waters Lymphocytes/100 WBC (Bld) 30.0 % Normal 20.5-60.0 [facility] Comment on above: Performed By: #### U RTPCR #### [facility] [address] [place] [address] Dr. Dwight Waters MANUAL DIFF REQ NO Normal [facility] Comment on above: Performed By: #### U RTPCR #### [facility] [address] [place] [address] Dr. Dwight Waters MCH (RBC) [Entitic mass] 28.2 pg Normal 25.9-34.0 [facility] Comment on above: Performed By: #### U RTPCR #### [facility] [address] [place] [address] Dr. Dwight Waters MCHC (RBC) [Mass/Vol] 31.9 g/dL Normal 29.9-35.2 [facility] Comment on above: Performed By: #### U RTPCR #### [facility] [address] [place] [address] Dr. Dwight Waters MCV (RBC) [Entitic vol] 88.3 fL Normal 80.0-94.0 [facility] Comment on above: Performed By: #### U RTPCR #### [facility] [address] [place] [address] Dr. Dwight Waters MONO # 0.6 103/ul Normal 0.3-0.8 [facility] Comment on above: Performed By: #### U RTPCR #### [facility] [address] [place] [address] Dr. Dwight Waters Monocytes/100 WBC (Bld) 8.2 % Normal 1.7-12.0 [facility] Comment on above: Performed By: #### U RTPCR #### [facility] [address] [place] [address] Dr. Dwight Waters NEUT # 4.3 103/ul Normal 1.4-6.5 [facility] Comment on above: Performed By: #### U RTPCR #### [facility] [address] [place] [address] Dr. Dwight Waters Neutrophils/100 WBC (Bld) 57.6 % Normal 43.0-75.0 [facility] Comment on above: Performed By: #### U RTPCR #### [facility] [address] [place] [address] Dr. Dwight Waters Platelet mean volume (Bld) [Entitic vol] 9.7 fL Normal 9.5-13.5 [facility] Comment on above: Performed By: #### U RTPCR #### [facility] [address] [place] [address] Dr. Dwight Waters PLT 297 103/ul Normal 150-450 [facility] Comment on above: Performed By: #### U RTPCR #### [facility] [address] [place] [address] Dr. Dwight Waters RBC 5.11 106/ul Normal 4.70-6.10 [facility] Comment on above: Performed By: #### U RTPCR #### [facility] [address] [place] [address] Dr. Dwight Waters WBC 7.5 103/ul Normal 4.0-11.0 [facility] Comment on above: Performed By: #### U RTPCR #### [facility] [address] [place] [address] Dr. Dwight Waters CHLORIDEon 06-06-2022 Chloride [Moles/Vol] 107 mmol/L Normal 98-107 [facility] Comment on above: Performed By: #### C BC #### [facility] [address] [place] [address] Dr. Dwight Waters CO2on 06-06-2022 CO2 [Moles/Vol] 27.4 mmol/L Normal 21.0-32.0 [facility] Comment on above: Performed By: #### C BC #### [facility] [address] [place] [address] Dr. Dwight Waters CREATININEon 06-06-2022 Creatinine [Mass/Vol] 1.20 mg/dL Normal 0.70-1.30 [facility] Comment on above: Performed By: #### C BC #### [facility] [address] [place], [place] [id number] Dr. Dwight Waters EGFR-AF KAZAKH >60 Normal >=60 [facility] Comment on above: Performed By: #### C BC #### [facility] [address] [place] [address] Dr. Dwight Waters EGFR-NON AF KAZAKH >60 Normal >=60 [facility] Comment on above: Performed By: #### C BC #### [facility] [address] [place] [address] Dr. Dwight Waters GGTon 06-06-2022 Gamma glutamyl transferase [Catalytic activity/Vol] 29 U/L Normal 15-85 [facility] Comment on above: Performed By: #### C BC #### [facility] [address] [place] [address] Dr. Dwight Waters GLUCOSE BLOODon 06-06-2022 Glucose [Mass/Vol] 112 mg/dL Critically high 74-106 [facility] Comment on above: Performed By: #### C BC #### [facility] [address] [place] [address] Dr. Dwight Waters MAGNESIUMon 06-06-2022 Magnesium [Mass/Vol] 1.3 mg/dL Critically low 1.8-2.4 [facility] Comment on above: Performed By: #### C MP #### [facility] [address] [place] [address] Dr. Dwight Waters NAon 06-06-2022 Sodium [Moles/Vol] 141 mmol/L Normal 136-145 [facility] Comment on above: Performed By: #### C MP #### [facility] [address] [place] [address] Dr. Dwight Waters PHOSPHORUSon 06-06-2022 Phosphate [Mass/Vol] 3.1 mg/dL Normal 2.6-4.7 [facility] Comment on above: Performed By: #### C MP #### [facility] [address] [place] [address] Dr. Dwight Waters POTASSIUMon 06-06-2022 Potassium [Moles/Vol] 4.3 mmol/L Normal 3.5-5.1 [facility] Comment on above: Performed By: #### C BC #### [facility] [address] [place], [place] [address] Dr. Dwight Araizan 06-06-2022 AST [Catalytic activity/Vol] 16 U/L Normal 15-37 [facility] Comment on above: Performed By: #### C BC #### [facility] [address] [place], [place] [address] Dr. Dwight OLVERAPTon 06-06-2022 ALT [Catalytic activity/Vol] 50 U/L Normal 16-63 [facility] Comment on above: Performed By: #### C BC #### [facility] [address] [place], [place] [address] Dr. Dwight Waters Bacteria identified Cx Nom ( Bld)on 05-21-2022 Bacteria identified Cx Nom (Unsp spec) NO GROWTH DAY 5 OF 5 [facility] Results may be compr omised due to volume of BACT\ALERT bottle exceeding 10mLs . The optimal blood volume is 8-10 mls per aerobic/anaerobic blood culture bottle. [facility] CALCIUMon 05-20-2022 Calcium [Mass/Vol] 9.1 mg/dL 8.6 - 10. 5 mg/dL [facility] CBC,PLATELETSon 05-20-2022 Erythrocyte distribution width (RBC) [Ratio] 12.5 % 10.9 - 14.3 % [facility] Hematocrit (Bld) [Volume fraction] 37.1 % Low 39.6 - 48.8 % [facility] Hemoglobin (Bld) [Mass/Vol] 12.3 g/dL Low 13.4 - 16.8 g/dL [facility] Interpretation and review of laboratory results Abnormal [facility] MCH (RBC) [Entitic mass] 28.9 pg 26.1 - 33.3 pg [facility] MCHC (RBC) [Mass/Vol] 33.2 g/dL 31.9 - 36.5 g/dL [facility] MCV (RBC) [Entitic vol] 87.3 fL 79.0 - 94.5 fL [facility] Platelet mean volume (Bld) [Entitic vol] 9.9 fL 8.7 - 12.3 fL [facility] Platelets (Bld) [#/Vol] 234 10*3/uL 146 - 337 K/uL [facility] RBC (Bld) [#/Vol] 4.25 10*6/uL Low [facility] WBC (Bld) [#/Vol] 6.31 10*3/uL 3.73 - 10. 10 K/uL [facility] CHEM 7 (LYTES,BUN,CREA,GLUC) on 05-20-2022 Anion gap [Moles/Vol] 15 mmol/L 7 - 17 mmol/L [facility] Chloride [Moles/Vol] 111 mmol/L High 98 - 10 8 mmol/L [facility] CO2 [Moles/Vol] 22 mmol/L 21 - 31 mmol/L [facility] Creatinine [Mass/Vol] 1.10 mg/dL 0.70 - 1.30 mg/dL [facility] GFR/1.73 sq M.predicted CKD-EPI (S/P/Bld) [Vol rate/Area] 81 >=60 mL/min/1.73m 2 [facility] Comment on above: Reported eGFR is bas ed on the CKD-EPI 2020 equation using creatinine, age, and sex. Glucose [Mass/Vol] 92 mg/dL 70 - 99 mg/dL [facility] Interpretation and review of laboratory results Abnormal [facility] Osmolality Calc [Osmolality] 302 [facility] Potassium [Moles/Vol] 4.4 mmol/L 3.5 - 5.0 mmol/L [facility] Sodium [Moles/Vol] 144 mmol/L 135 - 145 mmol/L [facility] Urea nitrogen [Mass/Vol] 18 mg/dL 7 - 25 mg/dL [facility] Urea nitrogen/Creatinine [Mass ratio] 16 mg/mg [facility] MAGNESIUMon 05-20-2022 Interpretation and review of laboratory results Abnormal [facility] Magnesium [Mass/Vol] 1.5 mg/dL Low 1.6 - 2 .6 mg/dL [facility] No Panel Informationon 05-20 Interpretation and review of laboratory results Normal [facility] PHOSPHATE, INORGANICon 05-20 Phosphate [Mass/Vol] 3.3 mg/dL 2.2 - 4 .6 mg/dL [facility] RF Unspecified body region V [...] projections of kidneys, ureters, and bladder. FINDINGS: [employer] images: [employer] radiographs of the abdomen reveal a nonobstructive [...] Contrast refluxes up the ureter to the [place] right kidney that is grossly normal appearing. [...] projections of kidneys, ureters, and bladder. FINDINGS: [employer] images: [employer] radiographs of the abdomen reveal a nonobstructive [...] Contrast refluxes up the ureter to the [place] right kidney that is grossly normal appearing. [...] I have reviewed and approved this report. [facility] Radiology Study observation (narrative) [facility] RF Unspecified body region V iews during surgeryOrdered By: Lizz Campos on 05-20-2022 [facility] Work Phone: CALCIUMon 05-19-2022 Calcium [Mass/Vol] 9.2 mg/dL 8.6 - 10. 5 mg/dL [facility] Calcium [Mass/Vol] 8.6 mg/dL 8.6 - 10. 5 mg/dL [facility] CBC,PLATELETSon 05-19-2022 Erythrocyte distribution width (RBC) [Ratio] 12.4 % 10.9 - 14.3 % [facility] Hematocrit (Bld) [Volume fraction] 38.0 % Low 39.6 - 48.8 % [facility] Hemoglobin (Bld) [Mass/Vol] 12.0 g/dL Low 13.4 - 16.8 g/dL [facility] Interpretation and review of laboratory results Abnormal [facility] MCH (RBC) [Entitic mass] 28.6 pg 26.1 - 33.3 pg [facility] MCHC (RBC) [Mass/Vol] 31.6 g/dL Low 31.9 - 36.5 g/dL [facility] MCV (RBC) [Entitic vol] 90.5 fL 79.0 - 94.5 fL [facility] Platelet mean volume (Bld) [Entitic vol] 9.7 fL 8.7 - 12.3 fL [facility] Platelets (Bld) [#/Vol] 199 10*3/uL 146 - 337 K/uL [facility] RBC (Bld) [#/Vol] 4.20 10*6/uL Low [facility] WBC (Bld) [#/Vol] 6.81 10*3/uL 3.73 - 10. 10 K/uL [facility] CHEM 7 (LYTES,BUN,CREA,GLUC) on 05-19-2022 Anion gap [Moles/Vol] 13 mmol/L 7 - 17 mmol/L [facility] Chloride [Moles/Vol] 105 mmol/L 98 - 10 8 mmol/L [facility] CO2 [Moles/Vol] 30 mmol/L 21 - 31 mmol/L [facility] Creatinine [Mass/Vol] 1.39 mg/dL High 0.70 - 1.30 mg/dL [facility] GFR/1.73 sq M.predicted CKD-EPI (S/P/Bld) [Vol rate/Area] 61 >=60 mL/min/1.73m 2 [facility] Comment on above: Reported eGFR is bas ed on the CKD-EPI 2020 equation using creatinine, age, and sex. Glucose [Mass/Vol] 121 mg/dL High 70 - 99 mg/dL [facility] Interpretation and review of laboratory results Abnormal [facility] Osmolality Calc [Osmolality] 303 [facility] Potassium [Moles/Vol] 3.8 mmol/L 3.5 - 5.0 mmol/L [facility] Sodium [Moles/Vol] 144 mmol/L 135 - 145 mmol/L [facility] Urea nitrogen [Mass/Vol] 18 mg/dL 7 - 25 mg/dL [facility] Urea nitrogen/Creatinine [Mass ratio] 13 mg/mg [facility] Anion gap [Moles/Vol] 15 mmol/L 7 - 17 mmol/L [facility] Chloride [Moles/Vol] 106 mmol/L 98 - 10 8 mmol/L [facility] CO2 [Moles/Vol] 24 mmol/L 21 - 31 mmol/L [facility] Creatinine [Mass/Vol] 1.46 mg/dL High 0.70 - 1.30 mg/dL [facility] GFR/1.73 sq M.predicted CKD-EPI (S/P/Bld) [Vol rate/Area] 58 Low >=60 mL/min/1.73m 2 [facility] Comment on above: Reported eGFR is bas ed on the CKD-EPI 2021 equation using creatinine, age, and sex. Glucose [Mass/Vol] 103 mg/dL High 70 - 99 mg/dL [facility] Interpretation and review of laboratory results Abnormal [facility] Osmolality Calc [Osmolality] [facility] Potassium [Moles/Vol] 3.9 mmol/L 3.5 - 5.0 mmol/L [facility] Sodium [Moles/Vol] 141 mmol/L 135 - 145 mmol/L [facility] Urea nitrogen [Mass/Vol] 21 mg/dL 7 - 25 mg/dL [facility] Urea nitrogen/Creatinine [Mass ratio] 14 mg/mg [facility] MAGNESIUMon 05-19-2022 Magnesium [Mass/Vol] 2.0 mg/dL 1.6 - 2 .6 mg/dL [facility] Magnesium [Mass/Vol] 1.7 mg/dL 1.6 - 2 .6 mg/dL [facility] No Panel Informationon 05-19 Interpretation and review of laboratory results Normal [facility] Interpretation and review of laboratory results Normal [facility] PHOSPHATE, INORGANICon 05-19 Phosphate [Mass/Vol] 3.0 mg/dL 2.2 - 4 .6 mg/dL [facility] Phosphate [Mass/Vol] 2.7 mg/dL 2.2 - 4 .6 mg/dL [facility] CALCIUMon 05-18-2022 Calcium [Mass/Vol] 9.1 mg/dL 8.6 - 10. 5 mg/dL [facility] CBC,PLATELETSon 05-18-2022 Erythrocyte distribution width (RBC) [Ratio] 12.5 % 10.9 - 14.3 % [facility] Hematocrit (Bld) [Volume fraction] 37.3 % Low 39.6 - 48.8 % [facility] Hemoglobin (Bld) [Mass/Vol] 11.9 g/dL Low 13.4 - 16.8 g/dL [facility] Interpretation and review of laboratory results Abnormal [facility] MCH (RBC) [Entitic mass] 28.9 pg 26.1 - 33.3 pg [facility] MCHC (RBC) [Mass/Vol] 31.9 g/dL 31.9 - 36.5 g/dL [facility] MCV (RBC) [Entitic vol] 90.5 fL 79.0 - 94.5 fL [facility] Platelet mean volume (Bld) [Entitic vol] 10.1 fL 8.7 - 12.3 fL [facility] Platelets (Bld) [#/Vol] 189 10*3/uL 146 - 337 K/uL [facility] RBC (Bld) [#/Vol] 4.12 10*6/uL Low [facility] WBC (Bld) [#/Vol] 10.19 10*3/uL High 3.73 - 10 .10 K/uL [facility] CHEM 7 (LYTES,BUN,CREA,GLUC) on 05-18-2022 Anion gap [Moles/Vol] 13 mmol/L 7 - 17 mmol/L [facility] Chloride [Moles/Vol] 102 mmol/L 98 - 10 8 mmol/L [facility] CO2 [Moles/Vol] 26 mmol/L 21 - 31 mmol/L [facility] Creatinine [Mass/Vol] 1.91 mg/dL High 0.70 - 1.30 mg/dL [facility] GFR/1.73 sq M.predicted CKD-EPI (S/P/Bld) [Vol rate/Area] 42 Low >=60 mL/min/1.73m 2 [facility] Comment on above: Reported eGFR is bas ed on the CKD-EPI 2020 equation using creatinine, age, and sex. Glucose [Mass/Vol] 158 mg/dL High 70 - 99 mg/dL [facility] Osmolality Calc [Osmolality] 297 [facility] Potassium [Moles/Vol] 4.0 mmol/L 3.5 - 5.0 mmol/L [facility] Sodium [Moles/Vol] 137 mmol/L 135 - 145 mmol/L [facility] Urea nitrogen [Mass/Vol] 30 mg/dL High 7 - 25 mg/dL [facility] Urea nitrogen/Creatinine [Mass ratio] 16 mg/mg [facility] CHEM 7 (LYTES,BUN,CREA,GLUC) Ordered By: Tamiko Thapa on 05-18-2022 Anion gap [Moles/Vol] 13 mmol/L 7 - 17 mmol/L [facility] Chloride [Moles/Vol] 104 mmol/L 98 - 10 8 mmol/L [facility] CO2 [Moles/Vol] 26 mmol/L 21 - 31 mmol/L [facility] Creatinine [Mass/Vol] 2.96 mg/dL High 0.70 - 1.30 mg/dL [facility] GFR/1.73 sq M.predicted CKD-EPI (S/P/Bld) [Vol rate/Area] 25 Low >=60 mL/min/1.73m 2 [facility] Comment on above: Reported eGFR is bas ed on the CKD-EPI 2020 equation using creatinine, age, and sex. Glucose [Mass/Vol] 136 mg/dL High 70 - 99 mg/dL [facility] Interpretation and review of laboratory results Abnormal [facility] Osmolality Calc [Osmolality] 304 [facility] Potassium [Moles/Vol] 4.2 mmol/L 3.5 - 5.0 mmol/L [facility] Sodium [Moles/Vol] 139 mmol/L 135 - 145 mmol/L [facility] Urea nitrogen [Mass/Vol] 41 mg/dL High 7 - 25 mg/dL [facility] Urea nitrogen/Creatinine [Mass ratio] 14 mg/mg [facility] MAGNESIUMon 05-18-2022 Magnesium [Mass/Vol] 2.2 mg/dL 1.6 - 2 .6 mg/dL [facility] Interpretation and review of laboratory results Normal [facility] Magnesium [Mass/Vol] 1.7 mg/dL 1.6 - 2 .6 mg/dL [facility] No Panel Informationon 05-18 Interpretation and review of laboratory results Abnormal [facility] Interpretation and review of laboratory results Normal [facility] PHOSPHATE, INORGANICon 05-18 Phosphate [Mass/Vol] 2.0 mg/dL Low 2.2 - 4 .6 mg/dL [facility] Interpretation and review of laboratory results Normal [facility] Phosphate [Mass/Vol] 2.8 mg/dL 2.2 - 4 .6 mg/dL [facility] PT,INR,PTTon 05-18-2022 aPTT Coag (PPP) [Time] 31.0 s [facility] INR Coag (Bld) [Relative time] 1.1 {INR} [facility] Interpretation and review of laboratory results Abnormal [facility] PT Coag (PPP) [Time] 14.4 s High [facility] URINE CULTUREOrdered By: Sylvia Campos on 05-18-2022 Bacteria identified Cx Nom (Unsp spec) No Growth [facility] CBC,PLATELETSon 05-17-2022 Erythrocyte distribution width (RBC) [Ratio] 12.8 % 10.9 - 14.3 % [facility] Hematocrit (Bld) [Volume fraction] 42.8 % 39.6 - 48.8 % [facility] Hemoglobin (Bld) [Mass/Vol] 13.3 g/dL Low 13.4 - 16.8 g/dL [facility] Interpretation and review of laboratory results Abnormal [facility] MCH (RBC) [Entitic mass] 28.9 pg 26.1 - 33.3 pg [facility] MCHC (RBC) [Mass/Vol] 31.1 g/dL Low 31.9 - 36.5 g/dL [facility] MCV (RBC) [Entitic vol] 92.8 fL 79.0 - 94.5 fL [facility] Platelet mean volume (Bld) [Entitic vol] 10.3 fL 8.7 - 12.3 fL [facility] Platelets (Bld) [#/Vol] 188 10*3/uL 146 - 337 K/uL [facility] RBC (Bld) [#/Vol] 4.61 10*6/uL [facility] WBC (Bld) [#/Vol] 16.61 10*3/uL High 3.73 - 10 .10 K/uL [facility] CHEM 7 (LYTES,BUN,CREA,GLUC) Ordered By: Kaylah Mc on 05-17-2022 Anion gap [Moles/Vol] 15 mmol/L 7 - 17 mmol/L [facility] Chloride [Moles/Vol] 103 mmol/L 98 - 10 8 mmol/L [facility] CO2 [Moles/Vol] 23 mmol/L 21 - 31 mmol/L [facility] Creatinine [Mass/Vol] 5.95 mg/dL High 0.70 - 1.30 mg/dL [facility] GFR/1.73 sq M.predicted CKD-EPI (S/P/Bld) [Vol rate/Area] 11 Low >=60 mL/min/1.73m 2 [facility] Comment on above: Reported eGFR is bas ed on the CKD-EPI 2020 equation using creatinine, age, and sex. Glucose [Mass/Vol] 165 mg/dL High 70 - 99 mg/dL [facility] Interpretation and review of laboratory results Abnormal [facility] Osmolality Calc [Osmolality] 305 [facility] Potassium [Moles/Vol] 4.6 mmol/L 3.5 - 5.0 mmol/L [facility] Sodium [Moles/Vol] 136 mmol/L 135 - 145 mmol/L [facility] Urea nitrogen [Mass/Vol] 52 mg/dL High 7 - 25 mg/dL [facility] Urea nitrogen/Creatinine [Mass ratio] 9 mg/mg [facility] CHEM 7 (LYTES,BUN,CREA,GLUC) Ordered By: Kehinde Gutierrez on 05-17-2022 Anion gap [Moles/Vol] 24 mmol/L High 7 - 17 mmol/L [facility] Chloride [Moles/Vol] 100 mmol/L 98 - 10 8 mmol/L [facility] CO2 [Moles/Vol] 16 mmol/L Low 21 - 31 mmol/L [facility] Creatinine [Mass/Vol] 8.08 mg/dL High 0.70 - 1.30 mg/dL [facility] GFR/1.73 sq M.predicted CKD-EPI (S/P/Bld) [Vol rate/Area] 7 Low >=60 mL/min/1.73m 2 [facility] Comment on above: Reported eGFR is bas ed on the CKD-EPI 2020 equation using creatinine, age, and sex. Glucose [Mass/Vol] 164 mg/dL High 70 - 99 mg/dL [facility] Interpretation and review of laboratory results Abnormal [facility] Osmolality Calc [Osmolality] 305 [facility] Potassium [Moles/Vol] 5.0 mmol/L 3.5 - 5.0 mmol/L [facility] Sodium [Moles/Vol] 135 mmol/L 135 - 145 mmol/L [facility] Urea nitrogen [Mass/Vol] 56 mg/dL High 7 - 25 mg/dL [facility] Urea nitrogen/Creatinine [Mass ratio] 7 mg/mg [facility] LAVENDER TOP TUBEon 05-17-20 22 [facility] MAGNESIUMon 05-17-2022 Interpretation and review of laboratory results Normal [facility] Magnesium [Mass/Vol] 1.8 mg/dL 1.6 - 2 .6 mg/dL [facility] Interpretation and review of laboratory results Normal [facility] Magnesium [Mass/Vol] 1.6 mg/dL 1.6 - 2 .6 mg/dL [facility] No Panel Informationon 05-17 [facility] PHOSPHATE, INORGANICon 05-17 Interpretation and review of laboratory results Abnormal [facility] Phosphate [Mass/Vol] 4.9 mg/dL High 2.2 - 4 .6 mg/dL [facility] PT,INR,PTTon 05-17-2022 aPTT Coag (PPP) [Time] 33.0 s [facility] INR Coag (Bld) [Relative time] 1.3 {INR} High [facility] Interpretation and review of laboratory results Abnormal [facility] PT Coag (PPP) [Time] 15.7 s [facility] Portable XR Chest Viewson IMPRESSION: [...] Stable cardiomegaly. IMPRESSION IMPRESSION: No acute findings. [facility] Radiology Study observation (narrative) [facility] Portable XR Chest ViewsOrder ed By: David Sanz on 05-17-2022 [facility] Work Phone: URINALYSISOrdered By: Michael patel Ma on 05-17-2022 Appearance (U) Cloudy Abnormal Clear [facility] Comment on above: Results may be inacc urate due to color interference. Clinical correlation recommended. Bacteria LM Ql (Urine sed) ABSENT ABSENT [facility] Color (U) Red Abnormal Yellow [facility] Comment on above: Results may be inacc urate due to color interference. Clinical correlation recommended. Epithelial cells.squamous LM Ql (Urine sed) ABSENT 1/hpf = 1+, 2-5/hpf = 2+, 0/hpf = 0+, ABSENT [facility] Glucose Test strip (U) [Mass/Vol] Negative Negative [facility] Comment on above: Results may be inacc urate due to color interference. Clinical correlation recommended. Interpretation and review of laboratory results Abnormal [facility] Ketones (U) [Mass/Vol] Trace Abnormal Negative [facility] Comment on above: Results may be inacc urate due to color interference. Clinical correlation recommended. Leukocyte esterase Test strip Ql (U) Large Abnormal Negative [facility] Comment on above: Results may be inacc urate due to color interference. Clinical correlation recommended. Nitrite Ql (U) Negative Negative [facility] Comment on above: Results may be inacc urate due to color interference. Clinical correlation recommended. pH (U) 5.0 [pH] 5.0 - 7.0 [facility] Comment on above: Results may be inacc urate due to color interference. Clinical correlation recommended. Protein (U) [Mass/Vol] mg/dL Abnormal Negative [facility] Comment on above: Results may be inacc urate due to color interference. Clinical correlation recommended. RBC (U) [#/Vol] Large Abnormal Negative [facility] Comment on above: Results may be inacc urate due to color interference. Clinical correlation recommended. RBC LM.HPF (Urine sed) [#/Area] /[HPF] Abnormal 0 - 2 /HPF [facility] Specific gravity (U) [Rel density] 1.016 [facility] Comment on above: Results may be inacc urate due to color interference. Clinical correlation recommended. Urobilinogen (U) [Mass/Vol] 0.2 E.U./dL 0.2 E.U/dL, 1.0 E.U/dL [facility] Comment on above: Results may [...] [Ratio] 12.9 % 10.9 - 14.3 % [facility] Hematocrit (Bld) [Volume fraction] 46.5 % 39.6 - 48.8 % [facility] Hemoglobin (Bld) [Mass/Vol] 14.7 g/dL 13.4 - 16.8 g/dL [facility] Interpretation and review of laboratory results Abnormal [facility] MCH (RBC) [Entitic mass] 28.3 pg 26.1 - 33.3 pg [facility] MCHC (RBC) [Mass/Vol] 31.6 g/dL Low 31.9 - 36.5 g/dL [facility] MCV (RBC) [Entitic vol] 89.6 fL 79.0 - 94.5 fL [facility] Platelet mean volume (Bld) [Entitic vol] 10.3 fL 8.7 - 12.3 fL [facility] Platelets (Bld) [#/Vol] 188 10*3/uL 146 - 337 K/uL [facility] RBC (Bld) [#/Vol] 5.19 10*6/uL [facility] WBC (Bld) [#/Vol] 12.55 10*3/uL High 3.73 - 10 .10 K/uL [facility] CHEM 7 (LYTES,BUN,CREA,GLUC) Ordered By: Alma Pena on 05-16-2022 Anion gap [Moles/Vol] 14 mmol/L 7 - 17 mmol/L [facility] Chloride [Moles/Vol] 103 mmol/L 98 - 10 8 mmol/L [facility] CO2 [Moles/Vol] 22 mmol/L 21 - 31 mmol/L [facility] Creatinine [Mass/Vol] 6.09 mg/dL High 0.70 - 1.30 mg/dL [facility] GFR/1.73 sq M.predicted CKD-EPI (S/P/Bld) [Vol rate/Area] 10 Low >=60 mL/min/1.73m 2 [facility] Comment on above: Reported eGFR is bas ed on the CKD-EPI 2020 equation using creatinine, age, and sex. Glucose [Mass/Vol] 134 mg/dL High 70 - 99 mg/dL [facility] Interpretation and review of laboratory results Abnormal [facility] Osmolality Calc [Osmolality] [facility] Potassium [Moles/Vol] 4.9 mmol/L 3.5 - 5.0 mmol/L [facility] Sodium [Moles/Vol] 134 mmol/L Low 135 - 145 mmol/L [facility] Comment on above: Results inconsistent with previous results Urea nitrogen [Mass/Vol] 49 mg/dL High 7 - 25 mg/dL [facility] Urea nitrogen/Creatinine [Mass ratio] 8 mg/mg [facility] CHEM 7 (LYTES,BUN,CREA,GLUC) on 05-16-2022 Anion gap [Moles/Vol] 17 mmol/L 7 - 17 mmol/L [facility] Chloride [Moles/Vol] 106 mmol/L 98 - 10 8 mmol/L [facility] CO2 [Moles/Vol] 22 mmol/L 21 - 31 mmol/L [facility] Creatinine [Mass/Vol] 5.23 mg/dL High 0.70 - 1.30 mg/dL [facility] GFR/1.73 sq M.predicted CKD-EPI (S/P/Bld) [Vol rate/Area] 13 Low >=60 mL/min/1.73m 2 [facility] Comment on above: Reported eGFR is bas ed on the CKD-EPI 2020 equation using creatinine, age, and sex. Glucose [Mass/Vol] 116 mg/dL High 70 - 99 mg/dL [facility] Interpretation and review of laboratory results Abnormal [facility] Osmolality Calc [Osmolality] 305 [facility] Potassium [Moles/Vol] 4.6 mmol/L 3.5 - 5.0 mmol/L [facility] Sodium [Moles/Vol] 140 mmol/L 135 - 145 mmol/L [facility] Urea nitrogen [Mass/Vol] 42 mg/dL High 7 - 25 mg/dL [facility] Urea nitrogen/Creatinine [Mass ratio] 8 mg/mg [facility] EXTRA MICROon 05-16-2022 [facility] LT BLUE TOP TUBEon 2 [facility] LYTES (NA, K, CL) - URINE - RANDOMon 05-16-2022 Chloride (24H U) [Moles/Vol] 68 mmol/L [facility] Potassium (24H U) [Moles/Vol] 36.7 mmol/L [facility] Sodium (24H U) [Moles/Vol] 55 mmol/L [facility] The reference range has not been established for random urine specimens. The test result should be integrated into the clinical context for interpretation. [facility] MAGNESIUMon 05-16-2022 Interpretation and review of laboratory results Normal [facility] Magnesium [Mass/Vol] 1.7 mg/dL 1.6 - 2 .6 mg/dL [facility] NOVEL CORONAVIRUS PCROrdered By: Edson Candelario on 05-16-2022 SARS-CoV-2 (COVID-19) RNA ESTELITA+probe Ql (Unsp spec) Not detected NOT DETECTED [facility] Comment on above: [facility] Negative results do [...] use authorization for use by authorized laboratories. [facility] No Panel Informationon 05-16 [facility] OSMOLALITY, URINEon 05-16-20 Interpretation and review of laboratory results Normal [facility] Osmolality (U) [Osmolality] 320 mosm/kg [facility] The reference range has not been established for random urine specimens. The test result should be integrated into the clinical context for interpretation. [facility] PROCALCITONINon 05-16-2022 Interpretation and review of laboratory results Normal [facility] Procalcitonin [Mass/Vol] 0.18 ng/mL <0.50 [facility] Comment on above: Procalcitonin is [...] and trend procalcitonin in various clinical settings. [email or web address] Two common cutoffs associated with bacterial infections are as follows. Respiratory tract infections: >0.25 ng/mL Sepsis/septic shock: >0.5 ng/mL Procalcitonin should not be used alone as a diagnostic tool, however. All procalcitonin results should be interpreted in association with the patients clinical condition and all laboratory findings. [facility] PT,INR,PTTon 05-16-2022 aPTT Coag (PPP) [Time] 30.3 s [facility] INR Coag (Bld) [Relative time] 1.1 {INR} [facility] Interpretation and review of laboratory results Normal [facility] PT Coag (PPP) [Time] 14.1 s [facility] SARS-CoV-2 (COVID-19) RNA NA A+probe Ql (Unsp spec)Ordered By: Edson Candelario on 05-16-2022 Interpretation and review of laboratory results Normal [facility] TACROLIMUS LEVEL, TROUGH (OH E DRUG LEVEL)Ordered By: Mariama Nick on 05-16-2022 Interpretation and review of laboratory results Normal [facility] Tacrolimus (Bld) [Mass/Vol] 4.1 ng/mL Bone Marrow Transplant: 4.0-12.0, Therapeutic: 5.0-15.0 [facility] Method performed is a chemiluminescent microparticle immunoasssay on the [employer] i2000. The range is based on experience at [facility] and users should be aware that target concentrations vary widely depending on concomitant therapy, time post-transplant, and desired degree of immunosuppression. [facility] URINE PROTEIN/CREA RATIO, RA Smiley 05-16-2022 Creatinine (24H U) [Mass/Vol] 59.82 mg/dL [facility] Protein Unsp time (U) [Mass/Vol] 111 mg/dL [facility] Protein/Creatinine (U) [Mass ratio] 1.856 mg[facility]g [facility] US for transplanted kidney l imitedon [...] Bladder: The bladder is decompressed with a Matias catheter. Abdomen: No ascites in the visualized [...] Bladder: The bladder is decompressed with a Matias catheter. Abdomen: No ascites in the visualized [...] appearing vascular flow in the transplant kidney. [facility] Radiology Study observation (narrative) [facility] US for transplanted kidney l imitedOrdered By: Rosendo Matute on 05-16-2022 [facility] Work Phone: CBC AND ELECTRONIC DIFFon Basophils (Bld) [#/Vol] 10*3/uL 0.00 - 0.09 K/uL [facility] Basophils/100 WBC (Bld) 0.2 % [facility] Differential cell count method Nom (Bld) Electronic Differential [facility] Eosinophils (Bld) [#/Vol] 10*3/uL 0.00 - 0.48 K/uL [facility] Eosinophils/100 WBC (Bld) 0.0 % [facility] Erythrocyte distribution width (RBC) [Ratio] 12.8 % 10.9 - 14.3 % [facility] Hematocrit (Bld) [Volume fraction] 46.0 % 39.6 - 48.8 % [facility] Hemoglobin (Bld) [Mass/Vol] 14.6 g/dL 13.4 - 16.8 g/dL [facility] Immature granulocytes (Bld) [#/Vol] 0.07 10*3/uL <=0.08 [facility] Immature granulocytes/100 WBC (Bld) 0.4 % [facility] Interpretation and review of laboratory results Abnormal [facility] Lymphocytes (Bld) [#/Vol] 1.49 10*3/uL 0.83 - 3.57 K/uL [facility] Lymphocytes/100 WBC (Bld) 9.4 % [facility] MCH (RBC) [Entitic mass] 28.2 pg 26.1 - 33.3 pg [facility] MCHC (RBC) [Mass/Vol] 31.7 g/dL Low 31.9 - 36.5 g/dL [facility] MCV (RBC) [Entitic vol] 89.0 fL 79.0 - 94.5 fL [facility] Monocytes (Bld) [#/Vol] 1.45 10*3/uL High 0.24 - 0.93 K/uL [facility] Monocytes/100 WBC (Bld) 9.2 % [facility] Neutrophils (Bld) [#/Vol] 12.77 10*3/uL High 1.57 - 6.19 K/uL [facility] Nucleated RBC/100 WBC (Bld) [Ratio] 0.0 % <=0.2 /100 WBC [facility] Platelet mean volume (Bld) [Entitic vol] 9.9 fL 8.7 - 12.3 fL [facility] Platelets (Bld) [#/Vol] 250 10*3/uL 146 - 337 K/uL [facility] RBC (Bld) [#/Vol] 5.17 10*6/uL [facility] Segmented neutrophils/100 WBC (Bld) 80.8 % [facility] WBC (Bld) [#/Vol] 15.81 10*3/uL High 3.73 - 10 .10 K/uL [facility] CBC AUTO DIFFon 05-15-2022 BASO # 0.0 103/ul Normal 0.0-0.1 [facility] Comment on above: Performed By: #### C BC #### [facility] [address] [address] [address] Dwight Waters Basophils/100 WBC (Bld) 0.3 % Normal 0.2-2.0 [facility] Comment on above: Performed By: #### C BC #### [facility] [address] [place] [address] Dr. Dwight Waters EO # 0.1 103/ul Normal 0.0-0.7 [facility] Comment on above: Performed By: #### C BC #### [facility] [address] [place] [address] Dr. Dwight Waters Eosinophils/100 WBC (Bld) 0.8 % Critically low 0.9-7.0 [facility] Comment on above: Performed By: #### C BC #### [facility] [address] [place] [address] Dr. Dwight Waters Erythrocyte distribution width (RBC) [Ratio] 12.7 % Normal 11.0-15.0 [facility] Comment on above: Performed By: #### C BC #### [facility] [address] [place] [address] Dr. Dwight Waters Hematocrit (Bld) [Volume fraction] 43.5 % Normal 42.0-54.0 [facility] Comment on above: Performed By: #### C BC #### [facility] [address] [place] [address] Dr. Dwight Waters Hemoglobin (Bld) [Mass/Vol] 14.4 g/dL Normal 14.0-18.0 [facility] Comment on above: Performed By: #### C BC #### [facility] [address] [place] [address] Dr. Dwight Waters IG # 0.02 10e3/ul Normal 0.00-0.03 [facility] Comment on above: Performed By: #### C BC #### [facility] [address] [place] [address] Dr. Dwight Waters IG % 0.2 % Normal 0.0-0.5 [facility] Comment on above: Performed By: #### C BC #### [facility] [address] [place] [address] Dr. Dwight Waters LYMPH # 1.5 103/ul Normal 1.2-3.8 [facility] Comment on above: Performed By: #### C BC #### [facility] [address] [place] [address] Dr. Dwight Waters Lymphocytes/100 WBC (Bld) 12.5 % Critically low 20.5-60.0 [facility] Comment on above: Performed By: #### C BC #### [facility] [address] [place] [address] Dr. Dwight Waters MANUAL DIFF REQ NO Normal [facility] Comment on above: Performed By: #### C BC #### [facility] [address] [place] [address] Dr. Dwight Waters MCH (RBC) [Entitic mass] 28.6 pg Normal 25.9-34.0 [facility] Comment on above: Performed By: #### C BC #### [facility] [address] [place] [address] Dr. Dwight Waters MCHC (RBC) [Mass/Vol] 33.1 g/dL Normal 29.9-35.2 [facility] Comment on above: Performed By: #### C BC #### [facility] [address] [place] [address] Dr. Dwight Waters MCV (RBC) [Entitic vol] 86.3 fL Normal 80.0-94.0 [facility] Comment on above: Performed By: #### C BC #### [facility] [address] [place] [address] Dr. Dwight Waters MONO # 1.0 103/ul Critically high 0.3-0.8 [facility] Comment on above: Performed By: #### C BC #### [facility] [address] [place] [address] Dr. Dwight Waters Monocytes/100 WBC (Bld) 8.2 % Normal 1.7-12.0 [facility] Comment on above: Performed By: #### C BC #### [facility] [address] [place] [address] Dr. Dwight Waters NEUT # 9.1 103/ul Critically high 1.4-6.5 [facility] Comment on above: Performed By: #### C BC #### [facility] [address] [place] [address] Dr. Dwight Waters Neutrophils/100 WBC (Bld) 78.0 % Critically high 43.0-75.0 [facility] Comment on above: Performed By: #### C BC #### [facility] [address] [place] [address] Dr. Dwight Waters Platelet mean volume (Bld) [Entitic vol] 9.8 fL Normal 9.5-13.5 [facility] Comment on above: Performed By: #### C BC #### [facility] [address] [address] [address] Dwight Waters PLT 251 103/ul Normal 150-450 [facility] Comment on above: Performed By: #### C BC #### [facility] [address] [place] [address] Dr. Dwight Waters RBC 5.04 106/ul Normal 4.70-6.10 [facility] Comment on above: Performed By: #### C BC #### [facility] [address] [address] [address] Dwight Waters WBC 11.6 103/ul Critically high 4.0-11.0 [facility] Comment on above: Performed By: #### C BC #### [facility] [address] [place] [address] Dr. Dwight Waters CHEM 6 (LYTES, BUN CREA)on 0 05-15-2022 Anion gap [Moles/Vol] 12 mmol/L 7 - 17 mmol/L [facility] Chloride [Moles/Vol] 105 mmol/L 98 - 10 8 mmol/L [facility] CO2 [Moles/Vol] 26 mmol/L 21 - 31 mmol/L [facility] Creatinine [Mass/Vol] 2.85 mg/dL High 0.70 - 1.30 mg/dL [facility] GFR/1.73 sq M.predicted CKD-EPI (S/P/Bld) [Vol rate/Area] 26 Low >=60 mL/min/1.73m 2 [facility] Comment on above: Reported eGFR is bas ed on the CKD-EPI 2020 equation using creatinine, age, and sex. Potassium [Moles/Vol] 4.6 mmol/L 3.5 - 5.0 mmol/L [facility] Sodium [Moles/Vol] 138 mmol/L 135 - 145 mmol/L [facility] Urea nitrogen [Mass/Vol] 32 mg/dL High 7 - 25 mg/dL [facility] Urea nitrogen/Creatinine [Mass ratio] 11 mg/mg [facility] CT ABD/PELVIS WO CONon [...] transplanted kidney with moderate right-sided hydronephrosis. Atrophic [place] kidneys with moderate right-sided hydronephrosis. Multiple nonobstructive [...] transplanted kidney with moderate right-sided hydronephrosis. Atrophic [place] kidneys with moderate right-sided hydronephrosis. Multiple nonobstructive right renal calculi measuring up to 8 mm. FOLLOW-UP: Follow-up as clinically indicated. Electronically authenticated by: LYNDSAY JEAN Date: 2022-05-15 05:04 Normal [facility] Covid-19 PCR (CVDTBH)on 04-30 SARS-CoV-2 (COVID-19) RNA ESTELITA+probe Ql (Unsp spec) Not detected Normal NOT DETECTED [facility] Comment on above: Result Comment: [...] for this test is supported by the Inventory Checker of Health and Human Service's declaration that [...] used). Performed By: #### U RTPCR #### [facility] [address] [place] [address] Dr. Dwight Waters GLUCOSEon 05-15-2022 Glucose [Mass/Vol] 141 mg/dL High 70 - 99 mg/[facility] GOLD TOP TUBEon 05-15-2022 [facility] HEPATIC FUNCTION PANELon Albumin [Mass/Vol] 4.3 g/dL 3.5 - 5.0 g/dL [facility] ALP [Catalytic activity/Vol] 85 U/L 32 - 126 U/L [facility] ALT [Catalytic activity/Vol] 13 U/L 10 - 52 U/L [facility] AST [Catalytic activity/Vol] 15 U/L 10 - 39 U/L [facility] Bilirubin [Mass/Vol] 0.8 mg/dL <1.5 [facility] Bilirubin.direct [Mass/Vol] 0.2 mg/dL <0.3 [facility] Interpretation and review of laboratory results Normal [facility] Protein [Mass/Vol] 7.3 g/dL 6.4 - 8.3 g/dL [facility] LIPASEon 05-15-2022 Lipase [Catalytic activity/Vol] 8 U/L Low 11 - 82 U/L [facility] No Panel Informationon 05-15 Interpretation and review of laboratory results Abnormal [facility] PROF 14(COMP METB)on 022 Albumin [Mass/Vol] 3.8 g/dL Normal 3.4-5.0 [facility] Comment on above: Performed By: #### U RTPCR #### [facility] [address] [place] [address] Dr. Dwight Waters Albumin/Globulin [Mass ratio] 1.1 {ratio} Normal [facility] Comment on above: Performed By: #### U RTPCR #### [facility] [address] [place] [address] Dr. Dwight Waters ALP [Catalytic activity/Vol] 92 U/L Normal 46-116 [facility] Comment on above: Performed By: #### U RTPCR #### [facility] [address] [place] [address] Dr. Dwight Waters ALT [Catalytic activity/Vol] 25 U/L Normal 16-63 [facility] Comment on above: Performed By: #### U RTPCR #### [facility] [address] [place] [address] Dr. Dwight Waters Anion gap [Moles/Vol] 14.6 mmol/L Normal [facility] Comment on above: Performed By: #### U RTPCR #### [facility] [address] [place] [address] Dr. Dwight Waters AST [Catalytic activity/Vol] 17 U/L Normal 15-37 [facility] Comment on above: Performed By: #### U RTPCR #### [facility] [address] [place] [address] Dr. Dwight Waters Bilirubin [Mass/Vol] 0.6 mg/dL Normal 0.2-1.0 [facility] Comment on above: Performed By: #### U RTPCR #### [facility] [address] [place] [address] Dr. Dwight Waters Calcium [Mass/Vol] 9.9 mg/dL Normal 8.5-10.1 [facility] Comment on above: Performed By: #### U RTPCR #### [facility] [address] [place] [address] Dr. Dwight Waters Chloride [Moles/Vol] 106 mmol/L Normal 98-107 [facility] Comment on above: Performed By: #### U RTPCR #### [facility] [address] [place] [address] Dr. Dwight Waters CO2 [Moles/Vol] 24.2 mmol/L Normal 21.0-32.0 [facility] Comment on above: Performed By: #### U RTPCR #### [facility] [address] [place] [address] Dr. Dwight Waters Creatinine [Mass/Vol] 1.58 mg/dL Critically high 0.70-1.30 [facility] Comment on above: Performed By: #### U RTPCR #### [facility] [address] [place] [address] Dr. Dwight Waters EGFR-AF KAZAKH 56 mL/min/1.73m2 Critically low >=60 [facility] Comment on above: Performed By: #### U RTPCR #### [facility] [address] [place] [address] Dr. Dwight Waters EGFR-NON AF KAZAKH 46 mL/min/1.73m2 Critically low >=60 [facility] Comment on above: Performed By: #### U RTPCR #### [facility] [address] [place] [address] Dr. Dwight Waters Globulin (S) [Mass/Vol] 3.5 g/dL Normal [facility] Comment on above: Performed By: #### U RTPCR #### [facility] [address] [place] [address] Dr. Dwight Waters Glucose [Mass/Vol] 162 mg/dL Critically high 74-106 [facility] Comment on above: Performed By: #### U RTPCR #### [facility] [address] [place] [address] Dr. Dwight Waters Potassium [Moles/Vol] 3.8 mmol/L Normal 3.5-5.1 [facility] Comment on above: Performed By: #### U RTPCR #### [facility] [address] [place] [address] Dr. Dwight Waters Protein [Mass/Vol] 7.3 g/dL Normal 6.4-8.2 [facility] Comment on above: Performed By: #### U RTPCR #### [facility] [address] [place] [address] Dr. Dwight Waters Sodium [Moles/Vol] 141 mmol/L Normal 136-145 [facility] Comment on above: Performed By: #### U RTPCR #### [facility] [address] [place] [address] Dr. Dwight Waters Urea nitrogen [Mass/Vol] 22.0 mg/dL Critically high 7.0-18.0 [facility] Comment on above: Performed By: #### U RTPCR #### [facility] [address] [place] [address] Dr. Dwight Waters Urea nitrogen/Creatinine [Mass ratio] 13.9 mg/mg Normal [facility] Comment on above: Performed By: #### U RTPCR #### [facility] [address] [place] [address] Dr. Dwight Waters Portable XR Chest Viewson [...] chest. IMPRESSION IMPRESSION: No acute cardiopulmonary disease [facility] Radiology Study observation (narrative) [facility] Portable XR Chest ViewsOrder ed By: Vladislav Omer on 05-15-2022 [facility] URINE DIPSTICK; REFLEX MICRO SCOPY; REFLEX CULTURE PERFORMABLEon 05-15-2022 Appearance (U) Clear Clear [facility] Color (U) Yellow Yellow [facility] Glucose Test strip (U) [Mass/Vol] 100 mg/dL Abnormal Negative [facility] Interpretation and review of laboratory results Abnormal [facility] Ketones (U) [Mass/Vol] Negative Negative [facility] Leukocyte esterase Test strip Ql (U) Large Abnormal Negative [facility] Nitrite Ql (U) Negative Negative [facility] pH (U) 6.0 [pH] 5.0 - 7.0 [facility] Protein (U) [Mass/Vol] 100 mg/dL Abnormal Negative [facility] RBC (U) [#/Vol] Large Abnormal Negative [facility] Specific gravity (U) [Rel density] 1.010 [facility] Urobilinogen (U) [Mass/Vol] 0.2 E.U./dL 0.2 E.U/dL, 1.0 E.U/dL [facility] URINE MICROSCOPIC WITH REFLE X TO CULTUREOrdered By: Rey Bro on 05-15-2022 Bacteria LM Ql (Urine sed) ABSENT ABSENT [facility] Epithelial cells.squamous LM Ql (Urine sed) ABSENT 1/hpf = 1+, 2-5/hpf = 2+, 0/hpf = 0+, ABSENT [facility] Interpretation and review of laboratory results Abnormal [facility] RBC LM.HPF (Urine sed) [#/Area] /[HPF] Abnormal 0 - 2 /HPF [facility] WBC LM.HPF (Urine sed) [#/Area] [...] 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 The [place] kidneys are progressively atrophic bilaterally compared to [...] of 06/14/2020 are no longer present. The [place] distal right ureter is decompressed beyond this [...] with surgical history for renal graft and [place] right urinary drainage, as a discrete ureteroneocystostomy is not identified, and the graft may be draining via a ureteroureterostomy. Urology consultation recommended. 3. The [place] kidneys are bilaterally atrophic, with right renal sinus calcifications consistent with nonobstructing right [place] renal calculi up to 6 mm. Normal [facility] CBC AUTO DIFFon 05-11-2022 BASO # 0.1 103/ul Normal 0.0-0.1 [facility] Comment on above: Performed By: #### U RTPCR #### [facility] [address] [place] [address] Dr. Dwight Waters Basophils/100 WBC (Bld) 0.8 % Normal 0.2-2.0 [facility] Comment on above: Performed By: #### U RTPCR #### [facility] [address] [place] [address] Dr. Dwight Waters EO # 0.2 103/ul Normal 0.0-0.7 [facility] Comment on above: Performed By: #### U RTPCR #### [facility] [address] [place] [address] Dr. Dwight Waters Eosinophils/100 WBC (Bld) 2.5 % Normal 0.9-7.0 [facility] Comment on above: Performed By: #### U RTPCR #### [facility] [address] [place] [address] Dr. Dwight Waters Erythrocyte distribution width (RBC) [Ratio] 12.5 % Normal 11.0-15.0 [facility] Comment on above: Performed By: #### U RTPCR #### [facility] [address] [place] [address] Dr. Dwight Waters Hematocrit (Bld) [Volume fraction] 48.3 % Normal 42.0-54.0 [facility] Comment on above: Performed By: #### U RTPCR #### [facility] [address] [place] [address] Dr. Dwight Waters Hemoglobin (Bld) [Mass/Vol] 15.3 g/dL Normal 14.0-18.0 [facility] Comment on above: Performed By: #### U RTPCR #### [facility] [address] [place] [address] Dr. Dwight Waters IG # 0.01 10e3/ul Normal 0.00-0.03 [facility] Comment on above: Performed By: #### U RTPCR #### [facility] [address] [place] [address] Dr. Dwight Waters IG % 0.2 % Normal 0.0-0.5 [facility] Comment on above: Performed By: #### U RTPCR #### [facility] [address] [place] [address] Dr. Dwight Waters LYMPH # 1.9 103/ul Normal 1.2-3.8 [facility] Comment on above: Performed By: #### U RTPCR #### [facility] [address] [place] [address] Dr. Dwight Waters Lymphocytes/100 WBC (Bld) 29.8 % Normal 20.5-60.0 [facility] Comment on above: Performed By: #### U RTPCR #### [facility] [address] [place] [address] Dr. Dwight Waters MANUAL DIFF REQ NO Normal [facility] Comment on above: Performed By: #### U RTPCR #### [facility] [address] [place] [address] Dr. Dwight Waters MCH (RBC) [Entitic mass] 28.2 pg Normal 25.9-34.0 [facility] Comment on above: Performed By: #### U RTPCR #### [facility] [address] [place] [address] Dr. Dwight Waters MCHC (RBC) [Mass/Vol] 31.7 g/dL Normal 29.9-35.2 [facility] Comment on above: Performed By: #### U RTPCR #### [facility] [address] [place] [address] Dr. Dwight Waters MCV (RBC) [Entitic vol] 89.1 fL Normal 80.0-94.0 [facility] Comment on above: Performed By: #### U RTPCR #### [facility] [address] [place] [address] Dr. Dwight Waters MONO # 0.6 103/ul Normal 0.3-0.8 [facility] Comment on above: Performed By: #### U RTPCR #### [facility] [address] [place] [address] Dr. Dwight Waters Monocytes/100 WBC (Bld) 9.0 % Normal 1.7-12.0 [facility] Comment on above: Performed By: #### U RTPCR #### [facility] [address] [place] [address] Dr. Dwight Waters NEUT # 3.6 103/ul Normal 1.4-6.5 [facility] Comment on above: Performed By: #### U RTPCR #### [facility] [address] [place] [address] Dr. Dwight Waters Neutrophils/100 WBC (Bld) 57.7 % Normal 43.0-75.0 [facility] Comment on above: Performed By: #### U RTPCR #### [facility] [address] [place] [address] Dr. Dwight Waters Platelet mean volume (Bld) [Entitic vol] 9.9 fL Normal 9.5-13.5 [facility] Comment on above: Performed By: #### U RTPCR #### [facility] [address] [place] [address] Dr. Dwight Waters PLT 249 103/ul Normal 150-450 [facility] Comment on above: Performed By: #### U RTPCR #### [facility] [address] [place] [address] Dr. Dwight Waters RBC 5.42 106/ul Normal 4.70-6.10 [facility] Comment on above: Performed By: #### U RTPCR #### [facility] [address] [place] [address] Dr. Dwight Waters WBC 6.3 103/ul Normal 4.0-11.0 [facility] Comment on above: Performed By: #### U RTPCR #### [facility] [address] [place] [address] Dr. Dwight Waters ER URINE PROFILEon 2 Bilirubin Ql (U) Unable to perform te sting due to color interference. Abnormal NEGATIVE [facility] Comment on above: Performed By: #### U RTPCR #### [facility] [address] [place] [address] Dr. Dwight Waters Clarity (U) TURBID Abnormal CLEAR [facility] Comment on above: Performed By: #### U RTPCR #### [facility] [address] [place] [address] Dr. Dwight Waters Color (U) RED Abnormal YELLOW [facility] Comment on above: Performed By: #### U RTPCR #### [facility] [address] [place] [address] Dr. Dwight Waters ERUAHD A micrscopic examina tion will be performed if indicated. Normal [facility] Comment on above: Performed By: #### U RTPCR #### [facility] [address] [place] [address] Dr. Dwight Waters Glucose Ql (U) Unable to perform te sting due to color interference. Abnormal NEGATIVE [facility] Comment on above: Performed By: #### U RTPCR #### [facility] [address] [place] [address] Dr. Dwight Waters Hemoglobin Ql (U) Unable to perform te sting due to color interference. Abnormal NEGATIVE [facility] Comment on above: Performed By: #### U RTPCR #### [facility] [address] [place] [address] Dr. Dwight Waters Ketones Ql (U) Unable to perform te sting due to color interference. Abnormal NEGATIVE [facility] Comment on above: Performed By: #### U RTPCR #### [facility] [address] [place] [address] Dr. Dwight Waters LEUKOCYTES Unable to perform te sting due to color interference. Abnormal NEGATIVE [facility] Comment on above: Performed By: #### U RTPCR #### [facility] [address] [place] [address] Dr. Dwight Waters Nitrite Ql (U) Unable to perform te sting due to color interference. Abnormal NEGATIVE [facility] Comment on above: Performed By: #### U RTPCR #### [facility] [address] [place] [address] Dr. Dwight Waters pH (U) 6.5 [pH] Normal 5-9 [facility] Comment on above: Performed By: #### U RTPCR #### [facility] [address] [place] [address] Dr. Dwight Waters SPEC GRAVITY 1.020 Normal 1.005-<=1.02 5 [facility] Comment on above: Performed By: #### U RTPCR #### [facility] [address] [place] [address] Dr. Dwight Waters UA PROTEIN Unable to perform te sting due to color interference. Normal NEGATIVE/ TRACE [facility] Comment on above: Performed By: #### U RTPCR #### [facility] [address] [place] [address] Dr. Dwight Waters UR MICRO IND INDICATED Normal [facility] Comment on above: Performed By: #### U RTPCR #### [facility] [address] [place] [address] Dr. Dwight Waters UROBILINOGEN Unable to perform te sting due to color interference. Normal 0.2 - 1.0 [facility] Comment on above: Performed By: #### U RTPCR #### [facility] [address] [place] [address] Dr. Dwight Waters PROF 14(COMP METB)on 022 Albumin [Mass/Vol] 3.8 g/dL Normal 3.4-5.0 [facility] Comment on above: Performed By: #### C MP #### [facility] [address] [place] [address] Dr. Dwight Waters Albumin/Globulin [Mass ratio] 1.1 {ratio} Normal [facility] Comment on above: Performed By: #### C MP #### [facility] [address] [place] [address] Dr. Dwight Waters ALP [Catalytic activity/Vol] 106 U/L Normal 46-116 [facility] Comment on above: Performed By: #### C MP #### [facility] [address] [place] [address] Dr. Dwight Waters ALT [Catalytic activity/Vol] 30 U/L Normal 16-63 [facility] Comment on above: Performed By: #### C MP #### [facility] [address] [place] [address] Dr. Dwight Waters Anion gap [Moles/Vol] 11.7 mmol/L Normal [facility] Comment on above: Performed By: #### C MP #### [facility] [address] [place] [address] Dr. Dwight Waters AST [Catalytic activity/Vol] 16 U/L Normal 15-37 [facility] Comment on above: Performed By: #### C MP #### [facility] [address] [place] [address] Dr. Dwight Waters Bilirubin [Mass/Vol] 0.6 mg/dL Normal 0.2-1.0 [facility] Comment on above: Performed By: #### C MP #### [facility] [address] [place] [address] Dr. Dwight Waters Calcium [Mass/Vol] 9.1 mg/dL Normal 8.5-10.1 [facility] Comment on above: Performed By: #### C MP #### [facility] [address] [place] [address] Dr. Dwight Waters CO2 [Moles/Vol] 27.4 mmol/L Normal 21.0-32.0 [facility] Comment on above: Performed By: #### C MP #### [facility] [address] [place] [address] Dr. Dwight Waters Creatinine [Mass/Vol] 1.18 mg/dL Normal 0.70-1.30 [facility] Comment on above: Performed By: #### C MP #### [facility] [address] [place] [address] Dr. Dwight Waters EGFR-AF KAZAKH >60 Normal >=60 [facility] Comment on above: Performed By: #### C MP #### [facility] [address] [place] [address] Dr. Dwight Waters EGFR-NON AF KAZAKH >60 Normal >=60 [facility] Comment on above: Performed By: #### C MP #### [facility] [address] [place] [address] Dr. Dwight Waters Globulin (S) [Mass/Vol] 3.6 g/dL Normal [facility] Comment on above: Performed By: #### C MP #### [facility] [address] [place] [address] Dr. Dwight Waters Glucose [Mass/Vol] 192 mg/dL Critically high 74-106 [facility] Comment on above: Performed By: #### C MP #### [facility] [address] [place] [address] Dr. Dwight Waters Potassium [Moles/Vol] 4.1 mmol/L Normal 3.5-5.1 [facility] Comment on above: Performed By: #### C MP #### [facility] [address] [place] [address] Dr. Dwight Waters Protein [Mass/Vol] 7.4 g/dL Normal 6.4-8.2 [facility] Comment on above: Performed By: #### C MP #### [facility] [address] [address] [address] Dwight Waters Sodium [Moles/Vol] 142 mmol/L Normal 136-145 [facility] Comment on above: Performed By: #### C MP #### [facility] [address] [place] [address] Dr. Dwight Waters Urea nitrogen [Mass/Vol] 17.0 mg/dL Normal 7.0-18.0 [facility] Comment on above: Performed By: #### C MP #### [facility] [address] [place] [address] Dr. Dwight Waters Urea nitrogen/Creatinine [Mass ratio] 14.4 mg/mg Normal [facility] Comment on above: Performed By: #### C MP #### [facility] [address] [place] [address] Dr. Dwight Waters URINE MICROSCOPIC ONLYon BACTERIA NONE SEEN Normal NONE SEEN [facility] Comment on above: Performed By: #### U RTPCR #### [facility] [address] [place] [address] Dr. Dwight Waters Bacteria identified Cx Nom (U) NOT INDICATED Normal [facility] Comment on above: Performed By: #### U RTPCR #### [facility] [address] [place] [address] Dr. Dwight Waters CAST NONE SEEN Normal NONE SEEN [facility] Comment on above: Performed By: #### U RTPCR #### [facility] [address] [place] [address] Dr. Dwight Waters Crystals LM Nom (Urine sed) NONE SEEN Normal NONE SEEN [facility] Comment on above: Performed By: #### U RTPCR #### [facility] [address] [place] [address] Dr. Dwight Waters Epithelial cells LM Ql (Urine sed) RARE Normal NONE SEEN /RARE [facility] Comment on above: Performed By: #### U RTPCR #### [facility] [address] [place] [address] Dr. wDight Waters MUCOUS NONE SEEN Normal NONE SEEN [facility] Comment on above: Performed By: #### U RTPCR #### [facility] [address] [address] [address] Dwight Waters RBC (U) [#/Vol] /uL Abnormal 0-2 [facility] Comment on above: Performed By: #### U RTPCR #### [facility] [address] [address] [address] Dwight Waters WBC NONE SEEN Normal NONE SEEN [facility] Comment on above: Performed By: #### U RTPCR #### [facility] [address] [address] [address] Dwight Waters K (Potassium)on 01-06-2020 Potassium [Moles/Vol] 4.4 mmol/L Normal 3.7-5.3 [facility] Comment on above: Performed By: #### K #### [facility] [address] [place] [address] [employer]: Kehinde Woodward MD Potassiumon 01-06-2020 Potassium [Moles/Vol] 4.4 mmol/L 3.7 - 5.3 mmol/L [facility] Work Phone: Hemoglobin and Hematocrit, B loodon 10-24-2019 Hematocrit (Bld) [Volume fraction] 23.6 % Low 40.7 - 50.3 % [place] Hemoglobin (Bld) [Mass/Vol] 7.3 g/dL Low 13 - 17 g/dL [place] Interpretation and review of laboratory results Abnormal [place] Hgb/Hcton 10-24-2019 Hematocrit (Bld) [Volume fraction] 23.6 % Low 40.7-50.3 [facility] Comment on above: Performed By: #### H H #### [facility] [address] [place] [address] [employer]: Kehinde Woodward MD Hemoglobin (Bld) [Mass/Vol] 7.3 g/dL Low 13.0-17.0 [facility] Comment on above: Performed By: #### H H #### [facility] [address] [place] [address] [employer]: Kehinde Woodward MD Hemoglobinon 08-27-2019 Hemoglobin (Bld) [Mass/Vol] 7.5 g/dL Low 13.0-17.0 [facility] Comment on above: Performed By: #### H GB #### [facility] [address] [place] [address] [employer]: Kehinde Woodward MD Hemoglobin (Bld) [Mass/Vol] 7.5 g/dL Low 13 - 17 g/dL [place] Interpretation and review of laboratory results Abnormal [place] Hemoglobinon 08-08-2019 Hemoglobin (Bld) [Mass/Vol] 8.3 g/dL Low 13.0-17.0 [facility] Comment on above: Performed By: #### H GB #### [facility] [address] [place] [address] [employer]: Kehinde Woodward MD Hemoglobin (Bld) [Mass/Vol] 8.3 g/dL Low 13 - 17 g/dL [place] Interpretation and review of laboratory results Abnormal [place] Hemoglobinon 08-04-2019 Hemoglobin (Bld) [Mass/Vol] 8.0 g/dL Low 13.0-17.0 [facility] Comment on above: Performed By: #### H GB #### [facility] [address] [place] [id number] [employer]: Kehinde Woodward MD Hemoglobin A1Con 08-03-2019 HbA1c (Bld) [Mass fraction] % Low 4.8-5.9 [facility] Comment on above: Result Comment: The ADA and AACC recommend providing the estimated average glucose result to permit better patient understanding of their HBA1c result. Performed By: #### G LYHGB #### [facility] [address] [place] [address] [employer]: Kehinde Woodward MD Glucose [Mass/Vol] mg/dL mg/dL [place] Comment on above: The ADA and AACC rec ommend providing the estimated average glucose result to permit better patient understanding of their HBA1c result. HbA1c (Bld) [Mass fraction] % Low 4.8 - 5.9 % [place] Interpretation and review of laboratory results Abnormal [place] Hemoglobinon 08-01-2019 Hemoglobin (Bld) [Mass/Vol] 8.1 g/dL Low 13.0-17.0 [facility] Comment on above: Performed By: #### H GB #### [facility] [address] [place] [address] [employer]: Kehinde Woodward MD Hemoglobin (Bld) [Mass/Vol] 8.1 g/dL Low 13 - 17 g/dL [place] Interpretation and review of laboratory results Abnormal [place] Hgb/Hcton 06-10-2019 Hematocrit (Bld) [Volume fraction] 24.3 % Low 40.7-50.3 [facility] Comment on above: Performed By: #### H H #### [facility] [address] [place] [address] [employer]: Kehinde Woodward MD Hemoglobin (Bld) [Mass/Vol] 7.4 g/dL Low 13.0-17.0 [facility] Comment on above: Performed By: #### H H #### [facility] [address] [place] [address] [employer]: Kehinde Woodward MD Hemoglobinon 06-01-2019 Hemoglobin (Bld) [Mass/Vol] 7.2 g/dL Low 13.0-17.0 [facility] Comment on above: Performed By: #### H GB #### [facility] [address] [place] [address] [employer]: Kehinde Woodward MD K (Potassium)on 01-14-2019 Potassium [Moles/Vol] 3.6 mmol/L Low 3.7-5.3 [facility] Comment on above: Performed By: #### K #### [facility] [address] [place] [address] [employer]: Kehinde Woodward MD Otheron 10-19-2018 IMPRESSION: 1. [...] characteristics determined by [facility]. It has not been cleared or approved [...] Amitriptyline(50), Amphetamine(250), Atenolol(500), Barbiturates(1000), Benzoylecgonine(50), Buprenorphine(50), Bupropion(25), Caffeine(31679), Chlordiazepoxide(50), Chlorpheniramine(100), Chlorpromazine(50), Citalopram(100), Clonazepam(200), Cocaine(25), Codeine(200), [...] LAB, [facility] TOXICOLOGY SCREEN URINE - UD RGon 10-12-2018 Drugs identified Screen Nom (U) For Medical Purposes Only, Non-forensic, screen results are presumptive. No confirmatory testing will follow. Invalid Interpretation QASIM Hay Comment on above: This Liquid Chromato graphy Mass Spectrometry (LC/MS/MS) test was developed and its performance characteristics determined by [facility]. It has not been cleared or approved [...] Amitriptyline(50), Amphetamine(250), Atenolol(500), Barbiturates(200), Benzoylecgonine(50), Buprenorphine(500), Bupropion(25), Caffeine(53656), Cannabinoids(THC)(50), Chlordiazepoxide(50), Chlorpheniramine(100), Chlorpromazine(50), Citalopram(100), Clonazepam(200), Cocaine(25), [...] 01-23-2024 15:04-0500 Body temperature 97.9 [degF] Kevin Prince MD Work Phone: [facility] 01-23-2024 15:04-0500 Diastolic blood pressure 67 mm[Hg] Kevin Prince MD Work Phone: [facility] 01-23-2024 15:04-0500 Heart rate 51 /min Kevin Prince MD Work Phone: [facility] 01-23-2024 15:04-0500 Respiratory rate 16 /min Kevin Prince MD Work Phone: [facility] 01-23-2024 15:04-0500 SaO2% (BldA) [Mass fraction] 94 % Kevin Prince MD Work Phone: [facility] 01-23-2024 15:04-0500 Systolic blood pressure 151 mm[Hg] Kevin Prince MD Work Phone: [facility] 01-23-2024 10:46-0500 Body mass index (BMI) [Ratio] 30.94 kg/m2 Kevin Prince MD Work Phone: [facility] 01-23-2024 10:46-0500 Body weight 89.6 kg Kevin Prince MD Work Phone: [facility] 01-18-2024 11:21-0500 Body height 170.2 cm Kevin Prince MD Work Phone: [facility] 01-06-2024 09:04-0500 Body height 170.2 cm Zuly Bruno NP Work Phone: [facility] 01-06-2024 09:04-0500 Body mass index (BMI) [Ratio] 32.42 kg/m2 Zuly Annz [employer]SULTANT Work Phone: [facility] 01-06-2024 09:04-0500 Body temperature 97.81 [degF] Zuly Annz [employer] Work Phone: [facility] 01-06-2024 09:04-0500 Body weight 93.89 kg Zuly Torresholz [employer] CONSULTANT Work Phone: [facility] 01-06-2024 09:04-0500 Diastolic blood pressure 70 mm[Hg] Zuly Torresholz [employer] CONSULTANT Work Phone: [facility] 01-06-2024 09:04-0500 Heart rate 95 /min Zuly Torresholz [employer] CONSULTANT Work Phone: [facility] 01-06-2024 09:04-0500 Respiratory rate 17 /min Zulytray Torresholz [employer] CONSULTANT Work Phone: [facility] 01-06-2024 09:04-0500 SaO2% (BldA) [Mass fraction] 99 % Zulytray Torresholz [employer] CONSULTANT Work Phone: [facility] 01-06-2024 09:04-0500 Systolic blood pressure 138 mm[Hg] Zuly Torresholz [employer] CONSULTANT Work Phone: [facility] 09-11-2023 10:31-0400 Body temperature 97.81 [degF] Steve Yeison MBBS Work Phone: [facility] 09-11-2023 10:31-0400 Diastolic blood pressure 66 mm[Hg] Steve Yeison MBBS Work Phone: [facility] 09-11-2023 10:31-0400 Heart rate 70 /min Steve Yeison MBBS Work Phone: [facility] 09-11-2023 10:31-0400 Respiratory rate 20 /min Steve Yeison MBBS Work Phone: [facility] 09-11-2023 10:31-0400 SaO2% (BldA) [Mass fraction] 91 % Steve Yeison MBBS Work Phone: [facility] 09-11-2023 10:31-0400 Systolic blood pressure 129 mm[Hg] Steve Yeison MBBS Work Phone: [facility] 09-10-2023 15:50-0400 Body mass index (BMI) [Ratio] 31.99 kg/m2 Steve Yeison MBBS Work Phone: 9(393)662-943635 [address] 09-10-2023 15:50-0400 Body weight 92.67 kg Steve Yeison MBBS Work Phone: 7(516)965-717535 [address] 09-02-2023 07:32-0400 Body height 170.2 cm Steve Yeison MBBS Work Phone: 5(939)182-689335 [address] 08-28-2023 13:33-0400 Body height 170.2 cm Steve Yeison MBBS Work Phone: 0(072)602-389735 [address] 08-28-2023 13:33-0400 Body mass index (BMI) [Ratio] 32.12 kg/m2 Steve Yeison MBBS Work Phone: 6(122)080-101135 [address] 08-28-2023 13:33-0400 Body temperature 97.3 [degF] Steve Yeison MBBS Work Phone: [facility] 08-28-2023 13:33-0400 Body weight 93.03 kg Steve Yeison MBBS Work Phone: 2(184)193-231535 [address] 08-28-2023 13:33-0400 Diastolic blood pressure 41 mm[Hg] Steve Yeison MBBS Work Phone: [facility] 08-28-2023 13:33-0400 Heart rate 116 /min Steve Yeison MBBS Work Phone: 7(306)739-382635 [address] 08-28-2023 13:33-0400 Systolic blood pressure 106 mm[Hg] Steve Farrarmatthew LEIGH Work Phone: [facility] 06-12-2023 14:50-0400 Body mass index (BMI) [Ratio] 33.8 kg/m2 Rebeca Gutierrez HEADMASTER/MISTRESS-PHYSICIAN GENERAL PRACTICE Work Phone: [facility] 06-12-2023 14:50-0400 Body temperature 97.3 [degF] Rebeca Gutierrez HEADMASTER/MISTRESS-PHYSICIAN GENERAL PRACTICE Work Phone: [facility] 06-12-2023 14:50-0400 Body weight 97.89 kg Rebeca Gutierrez HEADMASTER/MISTRESS-PHYSICIAN GENERAL PRACTICE Work Phone: [facility] 06-12-2023 14:50-0400 Diastolic blood pressure 77 mm[Hg] Rebeca Gutierrez HEADMASTER/MISTRESS-PHYSICIAN GENERAL PRACTICE Work Phone: [facility] 06-12-2023 14:50-0400 Heart rate 76 /min Rebeca Gutierrez HEADMASTER/MISTRESS-PHYSICIAN GENERAL PRACTICE Work Phone: [facility] 06-12-2023 14:50-0400 Systolic blood pressure 146 mm[Hg] Rebeca Gutierrez HEADMASTER/MISTRESS-PHYSICIAN GENERAL PRACTICE Work Phone: [facility] 01-16-2023 08:57-0500 Body height 170.2 cm [facility] Work Phone: [facility] 01-16-2023 08:57-0500 Body mass index (BMI) [Ratio] 33.66 kg/m2 [facility] Work Phone: [facility] 01-16-2023 08:57-0500 Body temperature 97.3 [degF] [facility] Work Phone: [facility] 01-16-2023 08:57-0500 Body weight 97.48 kg [facility] Work Phone: [facility] 01-16-2023 08:57-0500 Diastolic blood pressure 75 mm[Hg] [facility] Work Phone: [facility] 01-16-2023 08:57-0500 Heart rate 76 /min [facility] Work Phone: [facility] 01-16-2023 08:57-0500 Systolic blood pressure 142 mm[Hg] [facility] Work Phone: [facility] 09-10-2022 09:38-0400 Body height 170.2 cm Ryan Yepez MD Work Phone: [facility] 09-10-2022 09:38-0400 Body mass index (BMI) [Ratio] 33.67 kg/m2 Ryan Yepez MD Work Phone: [facility] 09-10-2022 09:38-0400 Body weight 97.52 kg Ryan Yepez MD Work Phone: [facility] 09-10-2022 09:38-0400 Diastolic blood pressure 83 mm[Hg] Ryan Yepez MD Work Phone: [facility] 09-10-2022 09:38-0400 Heart rate 64 /min Ryan Yepez MD Work Phone: [facility] 09-10-2022 09:38-0400 SaO2% (BldA) [Mass fraction] 96 % Ryan Yepez MD Work Phone: [facility] 09-10-2022 09:38-0400 Systolic blood pressure 129 mm[Hg] Ryan Yepez MD Work Phone: [facility] 07-07-2022 13:48-0400 Diastolic blood pressure 76 mm[Hg] Ryan Yepez MD Work Phone: [facility] 07-07-2022 13:48-0400 Heart rate 82 /min Ryan Yepez MD Work Phone: [facility] 07-07-2022 13:48-0400 SaO2% (BldA) [Mass fraction] 96 % Ryan Yepez MD Work Phone: 2(070)612-599701 [place] [address] 07-07-2022 13:48-0400 Systolic blood pressure 141 mm[Hg] Ryan Yepez MD Work Phone: 9(657)890-102801 [place] [address] 06-27-2022 13:32-0400 Body height 170.2 cm Ryan Yepez MD Work Phone: 5(165)727-614101 [place] [address] 06-27-2022 13:32-0400 Body mass index (BMI) [Ratio] 34.24 kg/m2 Ryan Yepez MD Work Phone: 3(745)156-063801 [place] [address] 06-27-2022 13:32-0400 Body temperature 98.6 [degF] Ryan Yepez MD Work Phone: 2(515)281-534401 [place] [address] 06-27-2022 13:32-0400 Body weight 99.16 kg Ryan Yepez MD Work Phone: 3(476)953-609701 [place] [address] 06-27-2022 13:32-0400 Diastolic blood pressure 78 mm[Hg] Ryan Yepez MD Work Phone: 3(910)562-423901 [place] [address] 06-27-2022 13:32-0400 Heart rate 77 /min Ryan Yepez MD Work Phone: 6(474)193-318701 [place] [address] 06-27-2022 13:32-0400 SaO2% (BldA) [Mass fraction] 95 % Ryan Yepez MD Work Phone: 3(438)519-690901 [place] [address] 06-27-2022 13:32-0400 Systolic blood pressure 121 mm[Hg] Ryan Yepez MD Work Phone: [facility] 06-27-2022 10:52-0400 Body height 170.2 cm Rena Brewster RN [facility] 06-27-2022 10:52-0400 Body mass index (BMI) [Ratio] 34.46 kg/m2 Rena Brewster RN [facility] 06-27-2022 10:52-0400 Body temperature 98.2 [degF] Rena Brewster RN [facility] 06-27-2022 10:52-0400 Body weight 99.79 kg Rena Brewster RN [facility] 06-27-2022 10:52-0400 Diastolic blood pressure 73 mm[Hg] Rena Brewster RN [facility] 06-27-2022 10:52-0400 Heart rate 78 /min Rena Brewster RN [facility] 06-27-2022 10:52-0400 Respiratory rate 20 /min Rena Brewster RN [facility] 06-27-2022 10:52-0400 SaO2% (BldA) [Mass fraction] 97 % Rena Brewster RN [facility] 06-27-2022 10:52-0400 Systolic blood pressure 135 mm[Hg] Rena Brewster RN [facility] 06-12-2022 14:23-0400 Body mass index (BMI) [Ratio] 34.59 kg/m2 Steve LEIGH Work Phone: [facility] 06-12-2022 14:23-0400 Body temperature 97 [degF] Steve LEIGH Work Phone: [facility] 06-12-2022 14:23-0400 Body weight 100.2 kg Steve LEIGH Work Phone: [facility] 06-12-2022 14:23-0400 Diastolic blood pressure 66 mm[Hg] Steve MORENOBS Work Phone: [facility] 06-12-2022 14:23-0400 Heart rate 63 /min Steve Latham JOSHBS Work Phone: [facility] 06-12-2022 14:23-0400 Systolic blood pressure 133 mm[Hg] Steve Latham JOSHBS Work Phone: [facility] 05-20-2022 15:21-0400 Body temperature 97.9 [degF] Gian Villatoro MD Work Phone: [facility] 05-20-2022 15:21-0400 Diastolic blood pressure 64 mm[Hg] Gian Villatoro MD Work Phone: [facility] 05-20-2022 15:21-0400 Heart rate 55 /min Gian Villatoro MD Work Phone: 1(909)331-789879 [address] 05-20-2022 15:21-0400 Respiratory rate 15 /min Gian Villatoro MD Work Phone: 2(001)606-840479 [address] 05-20-2022 15:21-0400 SaO2% (BldA) [Mass fraction] 95 % Gian Villatoro MD Work Phone: 1(657)904-700279 [address] 05-20-2022 15:21-0400 Systolic blood pressure 145 mm[Hg] Gian Villatoro MD Work Phone: 1(373)442-263279 [address] 05-19-2022 12:15-0400 Body mass index (BMI) [Ratio] 35.87 kg/m2 Gian Villatoro MD Work Phone: 1(857)888-794079 [address] 05-19-2022 12:15-0400 Body weight 103.92 kg Gian Villatoro MD Work Phone: 7(291)033-905270 [place] [address] Comment on above: standing scale 05-16-2022 16:19-0400 Body height 170.2 cm Gian Villatoro MD Work Phone: 7(218)[phone] [place] [address] Center 10-19-2018 08:44-0500 BMI (Body Mass Index) 26.58 kg/m2 [facility] Work Phone: 10-19-2018 08:44-0500 BP Diastolic 76 mm[Hg] [facility] Work Phone: 10-19-2018 08:44-0500 BP Systolic 144 mm[Hg] [facility] Work Phone: 10-19-2018 08:44-0500 Height 172.7 cm [facility] Work Phone: 10-19-2018 08:44-0500 Pulse (Heart Rate) 92 /min [facility] Work Phone: 10-19-2018 08:44-0500 Pulse Oximetry 99 % [facility] Work Phone: 10-19-2018 08:44-0500 Respiratory Rate 16 /min [facility] Work Phone: 10-19-2018 08:44-0500 Weight 79.29 kg [facility] Work Phone: 10-12-2018 09:50-0500 BMI (Body Mass Index) 27.24 kg/m2 [facility] Work Phone: 10-12-2018 09:50-0500 Body Temperature 98.6 [degF] [facility] Work Phone: 10-12-2018 09:50-0500 BP Diastolic 80 mm[Hg] [facility] Work Phone: 10-12-2018 09:50-0500 BP Systolic 157 mm[Hg] [facility] Work Phone: 10-12-2018 09:50-0500 Height 169.5 cm [facility] Work Phone: 10-12-2018 09:50-0500 Pulse (Heart Rate) 94 /min [facility] Work Phone: 10-12-2018 09:50-0500 Weight 78.29 kg [facility] Work Phone: Encounters Encounter Date Encounter Type Care Provider Facility Start: 02-26-2024 ambulatory CANDIE ALMAGUER Facility: [facility] Start: 02-26-2024 ambulatory KELVIN PACHECO Facility: [facility] Start: 02-25-2024 End: 02-25-2024 ambulatory FIDELINA DANIEL Not Available Start: 02-23-2024 End: 02-23-2024 ambulatory PALMA PALACIOS Not Available Start: 02-11-2024 End: 02-11-2024 ambulatory ZULY KIANA Not Available Start: 01-16-2024 Encounter for other preprocedural examination KELVIN PACHECO [place] Start: 01-16-2024 End: 01-23-2024 Evaluation and management of inpatient KEVIN PRINCE Facility:[facility] Start: 01-16-2024 End: 01-23-2024 Evaluation and management of inpatient Kevin Prince MD Work Phone: [email or web address] Comment on above: Pleural effusion on right Start: 01-16-2024 End: 01-23-2024 Patient encounter status Kevin Prince MD Work Phone: [facility] Work Phone: Start: 01-12-2024 End: 01-12-2024 ambulatory Angel Madsene RPh,PharmD Pharmacy Outpatient RX [facility] Start: 01-12-2024 End: 01-12-2024 Patient encounter procedure Angel Madsene RPh,PharmD Pharmacy Outpatient RX [facility] Start: 01-08-2024 Clinisync Result Encounter Generic External Data Provider [facility] External Department Unsolicited Start: 01-08-2024 Clinisync Result Encounter Generic External Data Provider [facility] External Department Unsolicited Start: 01-06-2024 End: 01-06-2024 ambulatory ZULY KRISTOPHERHHOLZ Not Available Start: 01-06-2024 End: 01-06-2024 Office outpatient visit 25 minutes Zuly Marissaz [employer] Work Phone: [facility] Comment on above: Bilateral lower extr emity edema (Primary Dx); 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); Atherosclerosis 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); Obesity (BMI 30-39.9); DARLENE (obstructive sleep apnea); Tremor; Immunocompromised (CMS/HCC); Primary hypertension ([facility] Shortness of breath Start: 01-01-2024 Clinisync Result Encounter Generic External Data Provider [facility] External Department Unsolicited Start: 01-01-2024 Clinisync Result Encounter Generic External Data Provider [facility] External Department Unsolicited Start: 11-03-2023 End: 11-03-2023 ambulatory UZLY AICHHOLZ Not Available Start: 10-06-2023 ambulatory Angel Madsene RPh,PharmD Pharmacy Outpatient [facility] Start: 10-06-2023 Patient encounter procedure Angel Carpio RPh,PharmD Pharmacy Outpatient [facility] [place] Start: 09-29-2023 ambulatory ZULY AICHHOLZ Facility: [facility] Start: 09-24-2023 ambulatory ZULY AICHHOLZ Facility: [facility] Start: 09-23-2023 ambulatory SAANNIED A JASMEET Facility :[facility] Start: 09-15-2023 ambulatory ZULY AICHHOLZ Facility: [facility] Start: 08-28-2023 End: 09-11-2023 Evaluation and management of inpatient KEVIN NIKI Facility:[facility] Start: 08-28-2023 End: 09-11-2023 Evaluation and management of inpatient Steve S Yeison LU Work Phone: [id number] Start: 08-28-2023 ambulatory [facility] Facility: [facility] Start: 08-28-2023 End: 08-28-2023 Office outpatient visit 25 minutes Steve Latham JOSHBS Work Phone: [facility] Comment on above: Immunosuppressed sta tus (Primary Dx); Kidney replaced by transplant; Aftercare following organ transplant; High risk medication use; Other general symptoms and signs; Abnormal blood chemistry; Hypertension secondary to other renal disorders Start: 08-19-2023 ambulatory Meka rueda [facility] Outpatient [facility] [place] Start: 08-19-2023 Patient encounter procedure Meka Munoz [facility] [place] Start: 06-12-2023 ambulatory [facility] Facility: [facility] Start: 06-12-2023 End: 06-12-2023 Office outpatient visit 25 minutes Steve Latham LU Work Phone: [facility] Comment on above: 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) Start: 06-10-2023 ambulatory Maren Bar RPh,PharmD Pharmacy Outpatient [facility] Start: 06-10-2023 Patient encounter procedure Maren Bar RPh,PharmD Pharmacy Outpatient [facility] Start: 05-26-2023 ambulatory [facility] Facility: [facility] Start: 04-28-2023 End: 04-29-[address] DOCTOR EVANS Facility: Start: 04-13-2023 End: 04-13-2023 ambulatory [facility] Start: 03-12-2023 ambulatory Angel Madsene RPh,PharmD Pharmacy Outpatient RX [facility] Start: 03-12-2023 Patient encounter procedure Angel Fete RPh,PharmD Pharmacy Outpatient RX [facility] Start: 03-10-2023 ambulatory Angel Madsene RPh,PharmD Pharmacy Outpatient [facility] [place] Start: 03-10-2023 Patient encounter procedure Angel Fete RPh,PharmD Pharmacy Outpatient RX [facility] Start: 03-02-2023 End: 03-03-[address] DOCTOR EVANS Facility:[facility] Start: 01-16-2023 End: 01-16-2023 Office outpatient visit 25 minutes Daisha Max DO Work Phone: [facility] Comment on above: Abnormal blood chemi [...] MD Work Phone: [facility] Comment on above: BPH with obstruction /lower urinary tract symptoms (Primary Dx); Encounter for screening for malignant neoplasm of prostate Start: 08-28-2022 End: 08-29-2022 ambulatory ROB BRUNO Facility:[facility] Start: 08-14-2022 End: 08-15-[address] DOCTOR EVANS Facility:[facility] Start: 07-07-2022 End: 07-07-2022 Patient encounter procedure Ryan Yepez MD Work Phone: [facility] Comment on above: Other hydronephrosis (Primary Dx); [...] MD Work Phone: [facility] Comment on above: Other hydronephrosis (Primary Dx) [...] visit 25 minutes Steve LEIGH Work Phone: [facility] Comment on above: Immunosuppressed sta tus [...] Start: 05-15-2022 End: 05-15-[address] GEORGE LAWRENCE Facility:[facility] Start: 05-11-2022 End: 05-11-[address] GEORGE LAWRENCE Facility:[facility] Start: 03-14-2022 ambulatory Comfort Rivera [facility] Work Phone: Pharmacy Outpatient RX [place] Start: 03-14-2022 Patient encounter procedure Comfort Rivera [facility] Work Phone: Pharmacy Outpatient RX [facility] Start: 06-14-2021 End: 06-14-2021 ambulatory Comfort Rivera [facility] Work Phone: [facility] Start: 06-14-2021 Patient encounter procedure Comfort Rivera [facility] Work Phone: [facility] Start: 01-20-2020 End: 01-27-2020 Patient encounter procedure PEPE CASE Facility:[facility] Start: 01-06-2020 End: 01-07-2020 Patient encounter procedure RENA GUDINO [facility] Start: 01-06-2020 End: 01-06-2020 Subsequent hospital visit by physician [facility] Start: 10-24-2019 End: 10-25-2019 Patient encounter procedure TANA CAMPA [facility] Start: 10-24-2019 End: 10-24-2019 Subsequent hospital visit by physician [facility] Start: 08-27-2019 End: 08-28-2019 Patient encounter procedure RENA GUDINO [facility] Start: 08-27-2019 End: 08-27-2019 Subsequent hospital visit by physician [facility] Start: 08-08-2019 End: 08-09-2019 [facility] Start: 08-08-2019 End: 08-08-2019 Subsequent hospital visit by physician [facility] Start: 08-03-2019 End: 08-04-2019 [facility] Start: 08-03-2019 End: 08-03-2019 Subsequent hospital visit by physician [facility] Start: 08-01-2019 End: 08-02-2019 [facility] Start: 08-01-2019 End: 08-01-2019 Subsequent hospital visit by physician [facility] Start: 06-10-2019 End: 06-11-2019 Patient encounter procedure RENA GUDINO [facility] Start: 06-01-2019 End: 06-02-2019 Patient encounter procedure RENA GUDINO [facility] Start: 01-14-2019 End: 01-15-2019 Patient encounter procedure RENA GUDINO [facility] Start: 11-17-2018 End: 11-17-2018 Patient encounter procedure Fidelina [facility] Comment on above: Social Work Follow-u p Start: 10-19-2018 End: 10-19-2018 Patient encounter Autumn [facility] Pre [facility]plant [facility] Comment on above: Cirrhosis [...] End: 10-12-2018 Patient encounter procedure Sophie Cary [facility] Trans[facility] Comment on above: Alcoholic cirrhosis, unspecified whether ascites present (Primary Dx); Pre-transplant evaluation for liver transplant Start: 10-12-2018 End: 10-12-2018 Office outpatient new 60 minutes Alfredito Restrepo Work Phone: [facility] Transplant [facility] Comment on above: Alcoholic cirrhosis, unspecified whether ascites present; ESRD (end stage renal disease) on dialysis; Pre-transplant evaluation for liver transplant Start: 10-06-2018 End: 10-06-2018 Patient encounter procedure Yovani Orr Work Phone: Department of Radiology Comment on above: Canceled (Insurance Company Redirected Pt) Start: 10-05-2018 Patient encounter status Comfort Rivera [facility] Work Phone: [facility] Procedures Date Procedure Procedure Detail Performing Clinician Start: 01-23-2024 Glucose measurement, blood LU Jain MD Work Phone: Start: 01-23-2024 Glucose measurement, blood [...] Start: 01-22-2024 End: 01-22-2024 Antibody screen Kevin Prince MD Work Phone: Comment on above: Performed By: #### X M ####[facility] (DEFAULT)[address] [place] [address] Start: 01-22-2024 Assay of magnesium Just in [...] Work Phone: Start: 01-20-2024 ITRACONAZOLE LEVEL Jennifer Alarcon [facility] Work Phone: Start: 01-20-2024 Oscillating positive expiratory [...] 01-19-2024 Iadna nos quantifica tion each organism Fidelina Ortiz Dorian [facility] Work Phone: Start: 01-18-2024 Echocardiography GARRIE ALMAGUER Start: 01-18-2024 Echo tthrc r-t 2d w/wom-mode [...] AURIS SCREEN BY PCR Carol Ann Capps HEADMASTER/MISTRESS-OPTIMIZATION ANALYST Work Phone: Start: 01-08-2024 ALL CBC WITH AUTO DIFF Generic External Data Provider Start: 01-01-2024 ALL CBC WITH AUTO DIFF Generic External Data Provider Start: 09-23-2023 Follow-up visit Follow-up HAKEEM ALAMO Start: 09-11-2023 Glucose measurement, blood Kevin Prince MD Work Phone: Start: 09-11-2023 Assay of [...] Other Other Start: 09-04-2023 Calcium ionized Nikunj Prince MD Work Phone: Start: 09-04-2023 Radiologic exam [...] AURIS SCREEN BY PCR Carol Ann Capps HEADMASTER/MISTRESS-OPTIMIZATION ANALYST Work Phone: Start: 08-28-2023 CBC AND ELECTRONIC [...] above: Performed By: #### C MP #### [facility] [address] [place] [address] Dr. Dwight Waters Start: 07-07-2022 Rmvl nfros [...] S/P liver trans plant Comfort Rivera [facility] Work Phone: Start: 04-08-2020 H/O: liver recipient Liver tra nsplant recipient Comfort Rivera [facility] Work Phone: Start: 01-06-2020 Potassium serum plasma/whole [...] De ceased-donor kidney transplant recipient Comfort Rivera [facility] Work Phone: Start: 06-10-2019 HEMOGLOBIN AND HEMAT OCRIT, BLOOD ROB KASMANI Start: 06-01-2019 Blood count hemoglobin ROB KASMANI Start: 03-22-2019 Lipid 1996 panel - S fabricio or Plasma Comfort Rivera [facility] Work Phone: Start: 01-14-2019 Potassium serum plasma/whole [...] End: 10-12-2018 Assay of iron Yovani Mejias [employer] Work Phone: Start: 10-12-2018 End: 10-12-2018 Assay [...] 10-12-2018 End: 10-12-2018 PSA screening Yovani Mejias [employer] Work Phone: Start: 10-12-2018 End: 10-12-2018 Thromboplastin time partial plasma/whole blood Yovani Orr [employer] Phone: Start: 10-12-2018 End: 10-12-2018 Assay of ethanol Yovani Orr Work Phone: Start: 10-12-2018 End: 10-12-2018 Drug/substance definitive qual/quant nos 7/more Yovani Orr Work Phone: Start: 10-12-2018 End: 10-12-2018 Protein total xcpt refractometry urine Yovani Orr Work Phone: Start: 10-12-2018 End: 10-12-2018 VOLUME MEASURED Yovani Orr Work Phone: H/O: liver recipient Liver repla vida by transplant Steve MORENOBS Work Phone: H/O: liver recipient Liver trans [...] transplant Kidn ey replaced by transplant Steve Latham MBBS Work Phone: History of renal transplant Kidn ey replaced by transplant Steve Latham MBBS Work Phone: History of renal transplant Dece ased-donor kidney transplant recipient Steve MORENOBS Work Phone: Plan of Treatment Date Care Activity Detail Author Start: 09-20-2029 Screening for malignant neoplasm of colon [facility] Start: 01-23-2025 Potassium [Moles/volume] in Serum or Plasma POTASSIUM [facility] Start: 08-31-2024 Screening for malignant neoplasm of lung [facility] Start: 06-17-2024 End: 06-17-2024 ambulatory [facility] Start: 06-17-2024 End: 06-17-2024 Patient encounter procedure [facility] Start: 03-22-2024 Fasting lipid profile LIPID SCREENING [facility] Start: 03-22-2024 Lipid panel [facility] Start: 02-26-2024 End: 02-26-2024 Patient encounter procedure 02/26/2024 9:30 AM EDT Office Visit [facility] [address] [place] [phone] Candie Almaguer MD [address] [place] [phone] [facility] Start: 02-11-2024 End: 02-11-2024 Patient encounter procedure 02/11/2024 10:30 AM EDT Office Visit [facility] [address] [place] [address] Zuly Bruno NP [address] [place] [phone] [facility] Start: 02-09-2024 End: 02-09-2024 Telemedicine consultation with patient 02/09/2024 3:30 PM EDT Telemedicine Infectious Diseases Care [facility] [address] [phone] Hakeem Alamo MD [address] [phone] [facility] Start: 01-15-2024 End: 01-15-2024 ambulatory [facility] Start: 01-15-2024 End: 01-15-2024 Patient encounter procedure [facility] Start: 01-06-2024 End: 01-06-2026 Echocardiogram 2D complete Echocardiogram 2D complete Echocardiography Routine DARLENE (obstructive sleep apnea) Primary hypertension (CMS/HCC) Bilateral lower extremity edema Shortness of breath Expected: 01/06/2024 (Approximate), Expires: 01/06/2026 [facility] Work Phone: Comment on above: Expected: 01/06/2024 (Approximate), Expi res: 01/06/2026 Start: 01-06-2024 End: 01-06-2024 Patient encounter procedure 01/06/2024 9:00 AM EST Office Visit [facility] [address] [place] [address] Zuly Bruno NP [address] [place] [phone] [facility] Start: 12-08-2023 End: 09-07-2024 CT Chest WO contrast [facility] Work Phone: Start: 12-01-2023 COVID-19 VACCINE (2 - Moderna risk series) COVID-19 VACCINE (2 - Moderna risk series) [facility] Start: 09-23-2023 End: 09-23-[address] [facility] Start: 09-23-2023 End: 09-23-2023 Telemedicine consultation with patient 09/23/2023 4:00 PM EDT Telemedicine Infectious Diseases Care [facility] [address] [phone] Hakeem Alamo MD [address] [facility] Start: 09-15-2023 End: 09-10-2024 ITRACONAZOLE LEVEL [facility] Start: 08-25-2023 End: 08-25-2024 ALLOSCREEN RECIPIENT (POST TX PRA) ALLOSCREEN RECIPIENT (POST TX PRA) Lab Routine Kidney replaced by transplant Aftercare following organ transplant Immunosuppressed status High risk medication use Other general symptoms and signs Abnormal blood chemistry Expected: 08/25/2023, Expires: 08/25/2024 [facility] Comment on above: Expected: 08/25/2023, Expires: Start: 07-31-2023 Influenza vaccination [facility] Start: 06-12-2023 End: 06-12-2023 Patient encounter procedure 06/12/2023 Office Visit Transplant Surgery Steve Latham MBBS [address] [place] [address] [facility] Start: 03-11-2023 End: 03-11-2023 Telemedicine consultation with patient 03/11/2023 Telemedicine Urology Ryan Yepez MD [address] [facility] [address] [place] [address] [facility] Start: 01-16-2023 End: 01-16-2023 Patient encounter procedure 01/16/2023 Office Visit Transplant Surgery [facility] Start: 10-31-2022 End: 10-31-2022 Patient encounter procedure 10/31/2022 Office Visit Transplant Surgery Steve Latham MBBS [address] [place] [phone] [facility] Start: 09-10-2022 End: 09-10-2023 PSA screening PSA, SCREENING Lab Routine BPH with obstruction/lower urinary tract symptoms Encounter for screening for malignant neoplasm of prostate Expected: 09/10/2022 (Approximate), Expires: 09/10/2023 [facility] Comment on above: Expected: 09/10/2022 (Approximate), Expi res: 09/10/2023 Start: 08-11-2022 End: 08-11-2022 Patient encounter procedure 08/11/2022 Office Visit Urology Ryan Yepez MD [address] [facility] [address] [place] [address] [facility] Start: 07-31-2022 Influenza vaccination [facility] Start: 07-07-2022 End: 07-07-2022 Patient encounter procedure 07/07/2022 Office Visit Urology Ryan Yepez MD [address] [facility] [address] [place] [address] [facility] Start: 07-07-2022 End: 07-07-2023 FLUORO IMAGING FOR UROLOGY [facility] Comment on above: Expected: 07/07/2022, Expires: 3 1 Occurrences starti ng 07/07/2022 until 07/07/2022 Start: 06-27-2022 End: 06-27-2022 Patient encounter procedure 06/27/2022 Office Visit Urology Ryan Yepez MD [address] [facility] [address] [place] [phone] [facility] Start: 06-27-2022 End: 06-27-2023 Basic metabolic 2000 panel - Serum or Plasma BASIC METABOLIC PANEL Lab Routine Other hydronephrosis Expected: 06/27/2022, Expires: 06/27/2023 [facility] Comment on above: Expected: 06/27/2022, Expires: Start: 06-27-2022 End: 06-27-2022 Patient encounter procedure 06/27/2022 Appointment Computerized Tomography Scan Ryan Yepez MD [address] [facility] [address] [place] [phone] Department of Radiology Start: 06-15-2022 End: 05-16-2023 CT Abdomen and Pelvis WO contrast CT ABDOMEN/PELVIS WITHOUT CONTRAST Imaging Routine FAYE (acute kidney injury) Expected: 06/15/2022 (Approximate), Expires: 05/16/2023 [facility] Work Phone: Comment on above: Expected: 06/15/2022 (Approximate), Expi res: 05/16/2023 Start: 06-12-2022 End: 06-12-2022 Patient encounter procedure 06/12/2022 Office Visit Transplant Surgery Steve Latham MBBS [address] [place] [address] [facility] Start: 06-11-2022 End: 06-11-2023 BK VIRUS DNA QN, PCR, PLASMA BK VIRUS DNA QN, PCR, PLASMA Lab Routine Kidney replaced by transplant Liver replaced by transplant Abnormal blood chemistry Expected: 06/11/2022, Expires: 06/11/2023 [facility] Comment on above: Expected: 06/11/2022, Expires: Start: 06-04-2022 End: 06-04-2022 Patient encounter procedure 06/04/2022 Office Visit Interventional Radiology [facility] Start: 10-18-2021 End: 10-18-2021 Patient encounter procedure 10/18/2021 Office Visit Transplant Surgery Steve Latham MBBS [address] [place] [address] [facility] Start: 07-31-2021 Influenza vaccination INFLUENZA VACCINE (#1) [facility] Start: 07-26-2021 End: 07-26-2021 Patient encounter procedure 07/26/2021 Office Visit Transplant Surgery [facility] Start: 2021 Prostate specific antigen measurement [facility] Start: 2021 Screening for malignant neoplasm of lung LUNG CANCER SCREENING [facility] Start: 2021 Zoster vaccine hzv live for subcutaneous use ZOSTER (SHINGLES) VACCINE (1 of 2) [facility] Start: 09-20-2020 Colonoscopy COLORECTAL CANCER SCREENING DISCUSSION [facility] Start: 09-20-2020 Screening for malignant neoplasm of colon [facility] Start: 07-31-2019 Influenza vaccination Flu vaccine (#1) [place] Start: 05-22-2019 Annual Wellness Visit (AWV) Annual Wellness Visit (AWV) [place] Start: 04-18-2019 End: 10-19-2019 Ultrasonography of abdomen US ABDOMEN RUQ/LIVER/GB Routine Cirrhosis of liver without ascites, unspecified hepatic cirrhosis type Expected: 04/18/2019 (Approximate), Expires: 10/19/2019 [facility] Work Phone: Comment on above: Expected: 04/18/2019 (Approximate), Expi res: 10/19/2019 Start: 01-25-2019 End: 01-25-2019 Ambulatory 01/25/2019 Office Visit Gastroenterology Christin Elizabeth, HEADMASTER/MISTRESS-PHYSICIAN GENERAL PRACTICE [address] [place] [address] Division of Gastroenterology and Hepatology Gavin Start: 11-19-2018 End: 11-19-2018 Ambulatory 11/19/2018 Appointment Pulmonary Diagnostics [facility] Start: 11-19-2018 End: 11-19-2018 Ambulatory [facility] Start: 10-19-2018 End: 10-19-2018 Ambulatory Ultrasound Jakob Start: 10-12-2018 End: 10-12-2019 Hemoglobin A1c/Hemoglobin.total mass fraction (Bld) HEMOGLOBIN A1C Routine Alcoholic cirrhosis, unspecified whether ascites present Pre-transplant evaluation for liver transplant Expected: 10/12/2018, Expires: 10/12/2019 [facility] Work Phone: Comment on above: Expected: 10/12/2018, Expires: 9 Start: 10-12-2018 End: 10-12-2019 TYPE AND SCREEN - NOT FOR TRANSFUSION TYPE AND SCREEN - NOT FOR TRANSFUSION Routine Alcoholic cirrhosis, unspecified whether ascites present Pre-transplant evaluation for liver transplant Expected: 10/12/2018, Expires: 10/12/2019 [facility] Work Phone: Comment on above: Expected: 10/12/2018, Expires: 9 Start: 07-31-2018 Influenza vaccination INFLUENZA VACCINE (#1) [facility] Work Phone: Start: 2011 Fasting lipid profile LIPID SCREENING [facility] Work Phone: Start: 2011 Lipid screen Lipid screen [place] Start: 1990 DTaP/Tdap/Td vaccine (1 - Tdap) DTaP/Tdap/Td vaccine (1 - Tdap) [place] Start: 1990 Hepatitis B vaccination HEP B VACCINE (1 of 3 - 19+ 3-dose series) [facility] Start: 1990 Hepatitis B Vaccine (1 of 3 - Risk Recombivax 3-dose series) Hepatitis B Vaccine (1 of 3 - Risk Recombivax 3-dose series) [place] Start: 1990 Third diphtheria, tetanus and acellular pertussis (DTaP) vaccination [facility] Start: 1990 Zoster vaccine hzv live for subcutaneous use ZOSTER (SHINGLES) VACCINE (1 of 2) [facility] Start: 1990 [facility] Start: 1989 Tetanus vaccination TETANUS [facility] Start: 1986 HIV screen HIV screen [place] Start: 02-17-1984 HIV screening HIV SCREENING DISCUSSION [facility] Work Phone: Start: 1983 COVID-19 VACCINE (1) COVID-19 VACCINE (1) [facility] Start: 1982 DTaP/Tdap/Td vaccine (1 - Tdap) DTaP/Tdap/Td vaccine (1 - Tdap) [place] Start: 1977 Pneumococcal 0-64 years Vaccine (1 of 3 - PCV13) Pneumococcal 0-64 years Vaccine (1 of 3 - PCV13) [place] Start: 1977 PNEUMOCOCCAL VACCINE SERIES (1 - PCV) PNEUMOCOCCAL VACCINE SERIES (1 - PCV) [facility] Start: 1977 PNEUMOCOCCAL VACCINE SERIES (1 of 2 - PCV) PNEUMOCOCCAL VACCINE SERIES (1 of 2 - PCV) [facility] Start: 1977 [facility] Start: 02-17-1976 COVID-19 VACCINE (#1) COVID-19 VACCINE (#1) [facility] Start: 02-17-1976 [facility] Start: 1971 COVID-19 VACCINE (#1) COVID-19 VACCINE (#1) [facility] Start: 1971 Hepatitis B vaccination HEP B VACCINE (1 of 3 - 3-dose series) [facility] Start: 1971 Medicare Annual Wellness (AWV) Medicare Annual Wellness (AWV) [facility] Start: 1971 Screening for malignant neoplasm of colon [facility] Start: 1971 Tetanus vaccination [facility] BK VIRUS DNA QN, PCR , PLASMA BK VIRUS DNA QN, PCR, PLASMA Lab Routine Kidney replaced by transplant Liver replaced by transplant Abnormal blood chemistry 06/12/2022 3:38 PM EDT [facility] CALCULI, URINARY (KIDNEY STONE) CALCULI, URINARY (KIDNEY STONE) Fluids Routine 05/19/2022 8:16 AM EDT [facility] Work Phone: CANNABINOIDS, QUANT (URINE)THC CONFIRMATION CANNABINOIDS, QUANT (URINE)THC CONFIRMATION Routine Alcoholic cirrhosis, unspecified whether ascites present ESRD (end stage renal disease) on dialysis Pre-transplant evaluation for liver transplant 10/12/2018 12:57 PM [facility] Work Phone: End: 09-10-2024 CHEM 6 (LYTES, BUN CREA) [facility] EBV VCA IGG AB EBV VCA IGG AB R outine Alcoholic cirrhosis, unspecified whether ascites present ESRD (end stage renal disease) on dialysis Pre-transplant evaluation for liver transplant 10/12/2018 12:57 PM [facility] Work Phone: Fungus identified in Unspecified specimen by Culture [facility] HLA TYPING (SOLID ORGAN) HLA TYPING (SOLID ORGAN) Routine Alcoholic cirrhosis, unspecified whether ascites present ESRD (end stage renal disease) on dialysis Pre-transplant evaluation for liver transplant 10/12/2018 12:57 PM [facility] Work Phone: HSV 1 AND 2 IGG ANTIBODY HSV 1 AND 2 IGG ANTIBODY Routine Alcoholic cirrhosis, unspecified whether ascites present ESRD (end stage renal disease) on dialysis Pre-transplant evaluation for liver transplant 10/12/2018 12:57 PM [facility] Work Phone: 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 specific culture [facility] PLACEMENT NEPHROSTOM Y CATHETER PERCUTANEOUS W/ IMAGE GUIDANCE PLACEMENT NEPHROSTOMY CATHETER PERCUTANEOUS W/ IMAGE GUIDANCE Imaging Routine Hydronephrosis due to obstruction of ureteral orifice FAYE (acute kidney injury) 05/17/2022 11:08 AM EDT [facility] [place] POST VOID RESIDUAL [place] POST VO [place] RESIDUAL [place] - OFFICE PERFORMED Routine BPH with obstruction/lower urinary tract symptoms Ordered: 09/10/2022 [facility] Comment on above: Ordered: 09/10/2022 PTH INTACT PTH INTACT Routi ne Alcoholic cirrhosis, unspecified whether ascites present ESRD (end stage renal disease) on dialysis Pre-transplant evaluation for liver transplant 10/12/2018 12:57 PM [facility] Work Phone: RUBEOLA IGG AB (IMMU NE STATUS) RUBEOLA IGG AB (IMMUNE STATUS) Routine Alcoholic cirrhosis, unspecified whether ascites present ESRD (end stage renal disease) on dialysis Pre-transplant evaluation for liver transplant 10/12/2018 12:57 PM [facility] Work Phone: End: 01-16-2024 Standard ECG ECG ECG Routine One Time for 1 Occurrences starting 01/16/2024 until 01/16/2024 [facility] Comment on above: One Time for 1 Occurrences starting 12/31 until 01/16/2024 End: 09-10-2024 TACROLIMUS LEVEL, TROUGH (PRE DRUG LEVEL) [facility] VARICELLA IGG AB (IM M STATUS) VARICELLA IGG AB (IMM STATUS) Routine Alcoholic cirrhosis, unspecified whether ascites present ESRD (end stage renal disease) on dialysis Pre-transplant evaluation for liver transplant 10/12/2018 12:57 PM [facility] Work Phone: Immunizations Immunization Date Immunization Notes Care Provider Fa jimmyty 11-03-2023 influenza virus vacc ine, unspecified formulation Generic Provider [facility] 11-03-2023 Moderna SARS-CoV-2 50mcg/0.5mL Booster Generic Provider [facility] Payers Date Payer Category Payer Unknown [id number] 2019 Unknown NURSING HOMES [facility] [id number] 2019-Present [id number] 2018 Medicaid MEDICAID [facility] DEPT OF JOB xxxxxxxxxxxx 2018-Present [phone] [address] [place] [address] xxxxxxxxxxxx [id number] [id number] 2018 Medicaid MEDICAID MEDICAI D [id number] 2018-Present [address] [place] [address] [id number] .[id number] 2018 Medicaid [id number] .[id number] 2018 Medicare MEDICARE MEDICAR E PART A AND B xxxxxxxxxxx 2018-Present [phone] [address] [address] [place] [address] xxxxxxxxxxx [id number] .[id number] 2018 Medicare [id number] 2018 Medicare MEDICARE MEDICAR E A AND B [id number] 2018-Present [address] [place] [address] [id number] .435031.315 2018 Medicare [id number]. 1.13.172.2.7.3 .955348.315 1971 Unknown [id number] 2.16.840.1.795739.3.579.2.173 1971 Unknown [id number] 2.16.840.1.625422.3.579.2.173 1971 Unknown [id number] 2.16.840.1.383989.3.579.2.173 1971 Unknown [id number] 2.16.840.1.408516.3.579.2.173 1971 Unknown [id number] 2.16.840.1.486426.3.579.2.173 1971 Unknown [id number] 2.16.840.1.395269.3.579.2.173 1971 Unknown [id number] 2.16.840.1.230719.3.579.2.173 1971 Unknown [id number] 2.16.840.1.595490.3.579.2.173 1971 Unknown [id number] 2.16.840.1.176759.3.579.2.647 1971 Unknown [id number] 2.16.840.1.587950.3.579.2.593 1971 Unknown [id number] 2.16.840.1.575034.3.579.2.593 1971 Unknown [id number] 2.16.840.1.237306.3.579.2.593 1971 Unknown [id number] 2.16.840.1.576967.3.579.2.593 1971 Unknown [id number] 2.16.840.1.949377.3.579.2.593 1971 Unknown [id number] 2.16.840.1.071340.3.579.2.593 1971 Unknown [id number] 2.16.840.1.325647.3.579.2.593 1971 Unknown [id number] 2.16.840.1.365298.3.579.2.593 1971 Unknown [id number] 2.16.840.1.244219.3.579.2.593 1971 Unknown [id number] 2.16.840.1.398647.3.579.2.593 1971 Unknown [id number] 2.16.840.1.961007.3.579.2.593 1971 Unknown [id number] 2.16.840.1.618977.3.579.2.593 1971 Unknown [id number] 2.16.840.1.595630.3.579.2.593 1971 Unknown [id number] 2.16.840.1.261592.3.579.2.593 1971 Unknown [id number] 2.16.840.1.158590.3.579.2.593 1971 Unknown [id number] 2.16.840.1.780629.3.579.2.125 9 1971 Unknown [id number] 2.16.840.1.067116.3.579.2.125 9 1971 Unknown [id number] 2.16.840.1.195157.3.579.2.125 9 1971 Unknown [id number] 2.16.840.1.615886.3.579.2.125 9 1971 Unknown [id number] 2.16.840.1.358486.3.579.2.125 9 1971 Unknown [id number] 2.16.840.1.529941.3.579.2.594 1971 Unknown [id number] 2.16.840.1.001122.3.579.2.594 1971 Unknown [id number] 2.16.840.1.365498.3.579.2.594 1971 Unknown [id number] 2.16.840.1.852221.3.579.2.594 1971 Unknown [id number] 2.16.840.1.685411.3.579.2.594 1971 Unknown [id number] 2.16.840.1.790229.3.579.2.594 1971 Unknown [id number] 2.16.840.1.956605.3.579.2.594 1971 Unknown [id number] 2.16.840.1.952150.3.579.2.594 1971 Unknown [id number] 2.16.840.1.742773.3.579.2.594 1971 Unknown [id number] 2.16840.1.342488.3.579.2.594 1971 Unknown [id number] 2.16.840.1.966643.3.579.2.594 1959 Medicaid [id number] 1959 Medicare [id number] Social History Date Type Detail Facility Start: 07-19-2018 End: 10-19-2018 Tobacco smoking status NHIS Former smoker [facility] Start: 07-19-1988 End: 05-14-2018 History of tobacco use Current smoker [facility] Work Phone: Start: 07-19-1988 End: 05-14-2018 History of tobacco use Cigarette Smoker [facility] Work Phone: Start: 10-19-2018 End: 09-26-2023 Cigarettes smoked current (pack per day) - Reported [facility] End: 07-19-1994 History of tobacco use Chews Tobacco [facility] Work Phone: Start: 1970 Sex Assigned At Not on file [facility] Work Phone: Start: 11-03-2018 Alcohol intake Current non-drinker of alcohol (finding) [place] Start: 06-22-2018 Alcohol Comment Hx of alcoholism [place] Start: 11-03-2018 End: 09-26-2023 Alcohol intake No [facility] Start: 07-19-2018 Tobacco use and exposure Former user [facility] Start: 09-06-2020 End: 09-26-2023 Alcohol intake Ex-drinker (finding) [facility] Start: 07-19-2018 Alcohol Comment stopped 05/14/2018 [facility] Start: 05-05-2022 End: 01-16-2023 Exposure to SARS-CoV-2 (event) Not sure [facility] Start: 07-07-2018 Gender identity Identifies as male gender (finding) [facility] Start: 01-16-2022 Sexual orientation Heterosexual (finding) [facility] Start: 11-03-2023 Tobacco use and exposure Smokeless [...] Dates [id number] Start: 05-23-2020 [id number] Start: 04-12-2020 [id number], [id number] [facility] Start: 05-17-2022 Comment on above: Description: Implant time-out completed by intra-procedural staff including this RN, mechanical test technician, and performing physician. The following was [...] understanding on picking up needed prescriptions at [facility] pharmacy as listed on discharge summary. Patient denies any unanswered questions at this time. Patient has been discharged with all of their belongings, transported via wheelchair on oxygen to front entrance for brother to transport home on home oxygen supply. [facility] 01-23-2024 Miscellaneous Notes Ajkob wrap & kerlix removed to LUE per [...] understanding on picking up needed prescriptions at [facility] pharmacy as listed on discharge summary. 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] POST OPERATIVE DIAGNOSIS Post-Op Diagnosis Codes: * High output congestive heart failure [I50.83] PROCEDURE PERFORMED Procedure(s) (LRB): LIGATION ANGIOACCESS AVF (Left) Resection of large aneurysmic vein PRIMARY CLOSURE Yes INTRAOPERATIVE FINDINGS No significant abnormalities SURGEON Surgeons and Role: * Jyoti Bryant MD, PhD - Primary ANESTHESIOLOGIST Anesthesiologist: Celena Tiwari MD; Kehinde Gutierrez MD CUT AND PRINT MACHINE OPERATOR: David Jasso APRN-CUT AND PRINT MACHINE OPERATOR Pasting Machine Operator Assisting: Mini Khan MD SURGICAL STAFF Switch Adjuster: Zoila Lawrence RN Relief Switch Adjuster: Marimar Saravia RN Relief Scrub: Briseyda Self [...] patient breathing easily. Report received from surgical dental assistant and report received from anesthesiology. Pt arrived [...] Axillary block. SURGEON(S): Jyoti Bryant MD, PHD ROUTE SALESMAN AND DRIVER: Mynor Fall MD ESTIMATED BLOOD LOSS: Minimal. [...] Jyoti Bryant MD, PHD ATTENDING SHANNON/Constanza JOB: [id number] DOC: [id number] Patient has been asleep this shift. He [...] overnight coverage, Jasper Gastelum MD, via pager #[phone] Pt- George Styles. Sarah 1082. TM1. Was wondering if he can have his Melatonin order increased to 6mg. Per pt, he usually takes 8mg at home. -SAMI Duffy #[phone] Tati Charles RN Internal Medicine Daily Progress Note Patient: George Styles, 1970, [id number] Physician: Arelis Mera MD, PGY3, Pager #[phone], TM1 service Assessment/Plan: George Styles is a [...] home amlodipine 5mg CAD: non-obstructive CAD on [facility] 2019. - continue home aspirin 81mg daily, [...] Discussed with team and attending, Dr Kevin Prince MD, on rounds. Signed, Arelis Mera MD Mr. Styles was admitted to [address] [place] [address]. On admission to [facility], from outside facility a dual RN initial assessment of skin condition was performed by Izzy Gutierrez RN and Leroy Singleton RN. Skin Assessment: Skin within defined limits:Yes Jose Score: 20 Wound [employer] Actor images obtained: No LDA Added: No Based [...] station when available. documented in this encounter [facility] 01-23-2024 Nurse Note Home Oxygen Qualification Patient: [...] at 4L of oxygen is also required.) [facility] 01-23-2024 History of Present illness Narrative BRIEF [...] mg Oral Daily Kelvin Pacheco MD, MBBS atomic physics professor Transplant nephrology Surgery Post-Op Check Note [...] monitor Leonel Harris DO General Surgery Pager [phone] CM went to bedside to talk with patient. Patient states he has home oxygen through [employer]. He uses 2.5 LNC around the clock. Patient states his brother will bring a tank for discharge. Anticipate patient will discharge tomorrow AM. Brother updated. Girish Oro RN, BSN Clinical Bracelet Maker Novelty Please note that I am a float case repairer and may not cover the same service every day. Please call the main Case Management office at [phone] for up-to-date coverage. Verified patients identity using [...] Daily Progress Note Patient: George Styles, 1970, [id number] Physician: Yury Ozuna MD, PGY1, Pager #[phone], TM service Assessment/Plan: George Styles is a 53 [...] by transplant surgery on 01/22 (NPO at de, updated type & screen) S/p Liver-Kidney Transplant [...] home amlodipine 5mg CAD: non-obstructive CAD on [facility] 2018. - continue home aspirin 81mg daily, [...] with the Nutrition plan outlined in the Noc Technician s note. DVT prophylaxis with lovenox Diet [...] in resident note. Kelvin Pacheco MD, MBBS atomic physics professor Transplant nephrology Patient seen and examined [...] Oral BID AC Kelvin Pacheco MD, MBBS atomic physics professor Transplant nephrology Images from the original note were not included. Internal Medicine Daily Progress Note Patient: George Styles, 1970, [id number] Physician: Yury Ozuna MD, PGY1, Pager #[phone], TM1 service Assessment/Plan: George Styles is a [...] home amlodipine 5mg CAD: non-obstructive CAD on [facility] 2018. - continue home aspirin 81mg daily, [...] with the Nutrition plan outlined in the Noc Technician s note. DVT prophylaxis with lovenox Diet [...] 611) Ptt/Pt/Inr: 30.6/15.5/1.2 (01/20 611) Doppler US LUE AVF: Associated attestation - Kelvin Pacheco MD, LU - 01/21/2024 1:50 PM EST Please see [...] 0 Provider: Zuly Bruno NP [facility]: [facility] Other Comments: Patient reported his Last Home Dose of mycophenolate and tacrolimus was on 01/15/24 at 0700. Medications that need removed from Outside Medication Reconciliation list: Please remove all medications. Please feel free to contact me with any further questions. Name: Heidy Chatman Phone #: [phone] Date/Time: 01/19/2024 12:08 PM Time Spent: 15 minutes Associated attestation - Fidelina Alarcon RPH - 01/19/2024 12:41 PM EST Department of Pharmacy Admission Medication Reconciliation Note Patient: George Styles Room/Bed: 1082/A I have reviewed the home medication list with the Medical Physicist. The home medication list status is: complete. All changes to the home medication list have been updated in [facility]. Updated PICK UP AND DELIVERY DRIVER Med List: Prior to Admission Medications Prescriptions [...] contact me with any further questions. Name: Fidelina Alarcon RPH Phone #: [phone] Date/Time: 01/19/2024 12:41 PM Internal Medicine Daily Progress Note Patient: George Styles, 1970, [id number] Physician: Yury Ozuna MD, PGY1, Pager #[phone], TM1 service Assessment/Plan: Acute Hypoxic Respiratory Insufficiency GARCIA, [...] home amlodipine 5mg CAD: non-obstructive CAD on [facility] 2018. - continue home aspirin 81mg daily, [...] with the Nutrition plan outlined in the Noc Technician s note. 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 - continue home aspirin 81mg daily, [...] with the Nutrition plan outlined in the Noc Technician s note. DVT prophylaxis with lovenox Diet [...] Ptt/Pt/Inr: 30.0/14.5/1.1 (01/18 315) Associated attestation - Kelvin Pacheco MD, LU - 01/18/2024 4:20 PM EST Patient seen and examined at bedside today during multidisciplinary rounds with medicine residents and pharmacy, charts reviewed, laboratory parameters reviewed. Agree with plan of care as mentioned in resident note. Kelvin Pacheco MD, LU atomic physics professor Transplant nephrology Pt known to histological illustrator from previous admissions. Provided emotional and spiritual support. Patient shared about: family support, medical course Oil Distributor Tender provided: - Supportive presence - Active listening - Validation of feelings/emotions Patient encouraged to request a histological illustrator as needed. Chaplains are available in-house 24 hours a day and 7 days a week. For urgent matters in [facility], please page [phone]. If the request is not urgent, please enter a consult. Consults are responded to within 24 hours. Senior Staff Oil Distributor Tender Angie Singh Mdiv, [facility] [phone] [email or web address] On-call TYLOR: bilingual call center representative David: 22/06 Pager TYLOR,KIKE, and Brock Maciel Pager [phone] 01/18/24 1342 Clinical Encounter Type Visited With Patient Visit Type Introduction Pastoral Time Spent 15 min Referral Other (See Comment) (rounding) Spiritual Assessment Emotional Observation Coping well;Anxiety Hope Observation Specific hope focus Support Observation By Family Interventions Provided Active listening;Supportive presence Facilitated Verbalization of feelings;Identifying support system;Identifying Sources of spiritual well-being Explored Expectations;Treatment decisions Packaging Materials Inspector Education Packaging Materials Inspector Service Available Yes Educated Patient Outcomes Patient [...] profile for any potential drug interaction. Name: Fidelina Alarcon RPH Phone #: [phone] Date/Time: 01/18/2024 9:56 AM Discharge Planning Patient [...] Yes Name and Contact information: Gian Styles ([phone]) Would you like to add additional adult [...] Bruno CNP as PCP - General Evan A Marschalk, DO as Infectious Disease (Infectious Disease) Dr Perrin transplant Dr [place]-Infectious disease Environment/Caregivers Is the patient from a facility or assisted?: No Patient lives with: Alone Living Environment: [...] oxygen?: Yes Oxygen Provider and Contact : [employer]?: Order for oxygen use?: unknown at this [...] patient on Anticoagulation? : No [id number] [place] [address] - [address] [facility] [address] [facility] [id number] Associate Professor Computer Science Does the patient or nutrition representative express financial concerns? : No Employed?: Disabled Coping/Stress Concerns about patient s coping and stress?: No Concerns about patient s caregiver s coping and stress?: No Values and Beliefs Cultural or voodoo practices that may impact discharge planning and/or [...] Plan 1. Identified self and role as Bracelet Maker Novelty. 2. Confirmed and updated demographics and treatment team. 3. Bracelet Maker Novelty will continue to follow with medical team for any other additional discharge needs. Kasandra DON RN [facility] [phone] *Please note I am float CM and work Thursday and Thursday every other week. Please call [phone] for assist in my absence. Internal Medicine Daily Progress Note Patient: George Styles, 1970, [id number] Physician: Yury Ozuna MD, PGY1, Pager #[phone], LQ0 service Assessment/Plan: Updates: - continue diuresis with [...] as disseminated given the retroperitoneal LAD likely 01/[address]) [address] AP (01/17): interval resolution of [...] home amlodipine 5mg CAD: non-obstructive CAD on [facility] 2018. - continue home aspirin 81mg daily, [...] Code Discussed with team and attending, Kevin Prince MD , on rounds. Signed, Yury Ozuna [...] completed shifts: In: 1210 [P.O.:1210] Out: 1999 [Urine:2000] I/O this shift: In: 540 [P.O.:540] Out: [...] Disease recommendations. Finally, ordered 2D echo. Kevin Prince MD, M[address]ISON[address] Mechanic of Clinical Medicine [facility] documented in this encounter [facility] 01-23-2024 Plan of care note Patient has [...] Symptoms (Acute Pain): verbalization of pain descriptors [facility] 01-22-2024 Hospital Discharge instructions Arelis Mera MD [...] your doctor for further instructions. Please call [phone], Option 1 or [phone] to schedule your appointment with the Heart Failure Clinic. Arelis Mera MD - 01/22/2024 3:08 PM EST You can change your dressing 48 hours from the procedure The following attachments cannot be sent through Care Everywhere.Heart Failure: Avoiding Triggers (Kittitian)Heart Failure: Limiting Sodium (Kittitian)Pain and Pain Control ([facility]) (Kittitian)documented in this encounter [facility] 01-22-2024 Surgery Postoperative evaluation and management note George Styles ([id number]) PRE OPERATIVE DIAGNOSIS High output congestive heart failure [I50.83] POST OPERATIVE DIAGNOSIS Post-Op Diagnosis Codes: * High output congestive heart failure [I50.83] PROCEDURE PERFORMED Procedure(s) (LRB): LIGATION ANGIOACCESS AVF (Left) Resection of large aneurysmic vein PRIMARY CLOSURE Yes INTRAOPERATIVE FINDINGS No significant abnormalities SURGEON Surgeons and Role: * Jyoti Bryant MD, PhD - Primary ANESTHESIOLOGIST Anesthesiologist: Celena Tiwari MD; Kehinde Gutierrez MD CUT AND PRINT MACHINE OPERATOR: David Jasso APRN-CUT AND PRINT MACHINE OPERATOR Pasting Machine Operator Assisting: Mini Khan MD SURGICAL STAFF Switch Adjuster: Zoila Lawrence RN Relief Switch Adjuster: Marimar Saravia RN Relief Scrub: Brisedya Self Scrub Person: Cinda Mai RN Resident Assisting: Leonel Harris DO Fellow: Miki Mcgowan MD, MBBS COMPLICATIONS None ESTIMATED BLOOD LOSS Minimal SPECIMENS No specimen sent * No specimens in log * Jyoti Bryant MD, PhD January 22, 2024 1:34 PM [facility] Work Phone: 01-22-2024 Nurse Note Arrived to PACU assisted by anesthesiology. Connected to monitors. Turned side to side, OR linens removed, repositioned. Airway patent, patient breathing easily. Report received from surgical dental assistant and report received from anesthesiology. Pt arrived awake. VSS. Sats slightly low. Pulm rehab used. Sats currently 3lpm @ 93%. Pt states he uses CPAP nocturnally. A&Ox4. Nerve block left arm, elevated. [facility] [place] 01-22-2024 Surgery Postoperative evaluation and management note [...] Axillary block. SURGEON(S): Jyoti Bryant MD, PHD ROUTE SALESMAN AND DRIVER: Mynor Fall MD ESTIMATED BLOOD LOSS: Minimal. [...] Jyoti Bryant MD, PHD ATTENDING SHANNON/Constanza JOB: [id number] DOC: [id number] [facility] 01-22-2024 Plan of care note Patient has [...] 1939 Plan Of Care Reviewed With: patient [facility] 01-20-2024 Consult note Associated Order (s): IP CONSULT TO SURGERY - TRANSPLANT (RENAL) Images from the original note were not included. TRANSPLANT SURGERY CONSULT NOTE: Consult: 01/20/2024, 4:03 PM Wound/Ostomy Clinical Nurse Specialist: Starla Morris MD Reason for Consult: Requesting Dr Carson Bryant for AVF revision/closure given new onset high output heart failure George Styles is a 53 y.o. male CURRENT HOSPITALIZATION LOS: Admit Date: 01/16/2024 [facility] LOS: 4 days George Styles is [...] 04/12/2020 Laterality: N/A; Surgeon: LU Palma; Location: [facility] SAME DAY SURGERY MAIN OR KIDNEY TRANSPLANT W/O [place] NEPHRECTOMY N/A 04/12/2020 Laterality: N/A; Surgeon: LU [...] Daily Timothy Joseph MD 200 mg at 01/20/24917 alum/mag hydrox.-simethicone oral suspension 30 mL 30 [...] 20 mg 20 mg Oral BID Timothy Joesph MD 20 mg at 01/20/24917 Gabapentin (NEURONTIN) [...] Peripheral AV Access 04/09/20138 HEMODIALYSIS USE ONLY;Hemodialysis 04/09/20138 -- 1381 Fluid Management (24hrs): Intake/Output last [...] Studies: Labs-CBC: WBC/Hgb/Hct/Plts: 3.79/12.5/38.9/166 (01/20 611) Labs-Chem 7([facility]): Bun/Creat/Cl/CO2/Glucose: 15/1.12/105/28/88 (01/20 611) Na/K+/Phos/Mg/Ca: 141/3.8/--/1.6/-- (01/20 611) Labs-Coags: Ptt/Pt/Inr: 30.6/15.5/1.2 (01/20 611) ASSESSMENT/PLAN: Geroge Styles is a 53 y.o. male with [...] seen and staffed with Dr. Mcgowan fellow partition assembly machine operator Thank you, Starla Morris MD Associated attestation - Jyoti Bryant MD, PhD - 01/22/2024 10:54 AM EST I. Jyoti Bryant MD, PhD, have independently seen and examined the patient, reviewed the labs, discussed the patient with the fellow/resident and agree with the note. [facility] Work Phone: 01-20-2024 Consult note Associated Order (s): IP CONSULT TO SURGERY - TRANSPLANT (RENAL) Images from the original note were not included. TRANSPLANT SURGERY CONSULT NOTE: Consult: 01/20/2024, 4:03 PM Wound/Ostomy Clinical Nurse Specialist: Starla Morris MD Reason for Consult: Requesting Dr Carson Bryant for AVF revision/closure given new onset high output heart failure George Styles is a 53 y.o. male CURRENT HOSPITALIZATION LOS: Admit Date: 01/16/2024 [facility] LOS: 4 days George Styles is a 53 y.o. 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, histo/blasto infection presenting with SOB and edema [...] DAY SURGERY MAIN OR KIDNEY TRANSPLANT W/O [place] NEPHRECTOMY N/A 04/12/2020 Laterality: N/A; Surgeon: LU [...] Daily Timothy Joseph MD 81 mg at 01/20/2418 Enoxaparin Sodium (LOVENOX) injection 40 mg 40 [...] Q12H Timothy Joseph MD 100 mg at 01/20/24 0919 Melatonin tablet 6 mg 6 mg Oral QHS PRN Jasper Groves MD 6 mg at 01/19/242043 Mycophenolate sodium (MYFORTIC) tablet DR 360 mg 360 mg Oral bid Timothy Joseph MD 360 mg at 01/20/24 0918 Ondansetron 4mg/2ml (ZOFRAN) injection 4 mg 4 [...] AV Access 04/09/20138 HEMODIALYSIS USE ONLY;Hemodialysis 04/09/20 0139 -- 1381 [...] Studies: Labs-CBC: WBC/Hgb/Hct/Plts: 3.79/12.5/38.9/166 (01/20 611) Labs-Chem 7([facility]): Bun/Creat/Cl/CO2/Glucose: 15/1.12/105/28/88 (01/20 611) Na/K+/Phos/Mg/Ca: 141/3.8/--/1.6/-- (01/20 [...] seen and staffed with Dr. Mcgowan fellow partition assembly machine operator Thank you, Starla Morris MD Associated attestation [...] ORTHOTOPIC N/A 04/12/2020 Laterality: N/A; Surgeon: LU Palam; Location: [facility] SAME DAY SURGERY MAIN OR KIDNEY TRANSPLANT W/O [place] NEPHRECTOMY N/A 04/12/2020 Laterality: N/A; Surgeon: LU Palma; Location: [facility] SAME DAY SURGERY MAIN OR OTHER [...] (order for outpatient) Please SecureChat or Call ([phone]) for any questions. Await attending attestation for final recommendations. Hank Noel MD Division of Gastroenterology, Hepatology, and Nutrition Clinical Fellow, PGY-5 Pager: [phone] For urgent/stat calls or consults 5pm to 7am, please page the on-call GI fellow on QVaionia. [facility]--> Internal Medicine--> Gastroenterology, Hepatology, & Nutrition--> 1st Call Janae Hatfield For urgent/stat calls or consults 7am to 5pm during the weekend, please page the on-call GI fellow on QGenda. [facility]--> Internal Medicine--> Gastroenterology, Hepatology, & Nutrition--> All Hep & East Wknd Cons Fel Day For follow up questions regarding this patient 7am to 5pm during the weekday, contact the Hepatology consults fellow or CARLOS A on Avolenta. [facility]--> Internal Medicine--> Gastroenterology, Hepatology, & [...] Estrada MD, MSc documented in this encounter [facility] 01-19-2024 Nurse Note 01/19/24 0900 Vitals ICU/PCU [...] rest, 95-96% when talking/moving. Paulette Cordon RN [facility] 01-19-2024 Nurse Note Paged overnight coverage, Jasper Gastelum MD, via pager #[phone] Pt- George Styles. Sarah [phone]. TM1. Was wondering if he can have his Melatonin order increased to 6mg. Per pt, he usually takes 8mg at home. -SAMI Duffy #[phone] Tati Charles RN [facility] 01-18-2024 Consult note Associated Order (s): IP CONSULT TO HEPATOBILIARY N [facility] Main Hepatology Consult WebExchange --> IM Consult Serv [facility] --> [facility] Main Hepatology consult service Fellow [...] CATHETER PERCUTANEOUS W/ IMAGE GUIDANCE 05/17/2022 Surgeon: nEzo Heart DO; Location: [facility] INTERVENTIONAL RADIOLOGY (VIR) LIVER TRANSPLANT, ORTHOTOPIC N/A 04/12/2020 Laterality: N/A; Surgeon: LU Palma; Location: [facility] SAME DAY SURGERY MAIN OR KIDNEY TRANSPLANT W/O [place] NEPHRECTOMY N/A 04/12/2020 Laterality: N/A; Surgeon: LU [...] (order for outpatient) Please SecureChat or Call ([phone]) for any questions. Await attending attestation for final recommendations. Hank Noel MD Division of Gastroenterology, Hepatology, and Nutrition Clinical Fellow, PGY-5 Pager: [phone] For urgent/stat calls or consults 5pm to 7am, please page the on-call GI fellow on QGenda. [facility]--> Internal Medicine--> Gastroenterology, Hepatology, & Nutrition--> 1st Call Janae Hatfield For urgent/stat calls or consults 7am to 5pm during the weekend, please page the on-call GI fellow on QGenda. [facility]--> Internal Medicine--> Gastroenterology, Hepatology, & Nutrition--> All Hep & East Wknd Cons Fel Day For follow up questions regarding this patient 7am to 5pm during the weekday, contact the Hepatology consults fellow or CARLOS A on QGenda. [facility]--> Internal Medicine--> Gastroenterology, Hepatology, & [...] (order for outpatient) Michael Estrada MD, MSc [facility] Work Phone: 01-16-2024 Plan of care note Internal Medicine Daily Progress Note Patient: George Styles, 1970, [id number] Physician: Arelis Mera MD, PGY3, Pager #[phone], TM1 service Assessment/Plan: George Styles is a [...] home amlodipine 5mg CAD: non-obstructive CAD on [facility] 2018. - continue home aspirin 81mg daily, [...] Discussed with team and attending, Dr Kevin Prince MD, on rounds. Signed, Arelis Mera MD [facility] 01-16-2024 Nurse Note Mr. Styles was admitted to [address] [place] [address]. On admission to [facility], from outside facility a dual RN initial assessment of skin condition was performed by Izzy Gutierrez, RN and Leroy Singleton, RN. Skin Assessment: Skin within defined limits:Yes Jose Score: 20 Wound [employer] Actor images obtained: No LDA Added: No Based [...] room closest to nurses station when available. [facility] 01-16-2024 History and physical note Images from the original note were not included. Internal Medicine Admission History & Physical Patient: George Styles, 1970, [id number] Physician: Timothy Joseph MD, PGY1, Pager #[phone], TM 1 service Date of face to [...] of his IS. Patient initially presented to [facility] on 01/15/2024 with one-week history of shortness [...] GUIDANCE 05/17/2022 Surgeon: Enzo Heart DO; Location: [facility] INTERVENTIONAL RADIOLOGY (VIR) LIVER TRANSPLANT, ORTHOTOPIC N/A 04/12/2020 Laterality: N/A; Surgeon: LU Palma; Location: [facility] SAME DAY SURGERY MAIN OR KIDNEY TRANSPLANT W/O [place] NEPHRECTOMY N/A 04/12/2020 Laterality: N/A; Surgeon: LU Palma; Location: [facility] SAME DAY SURGERY MAIN OR OTHER [...] itraconazole Fax results to: Dr. White - [phone] Transplant Neph - [phone] Gabapentin 400 MG capsule Sig: Take 1 [...] erythema: Skin: No jaundice or rash Neuro: kayak maker 3-7, 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 Strength [...] home amlodipine 5mg CAD: non-obstructive CAD on [facility] 2018. - continue home aspirin 81mg daily Gout: continue home allopurinol 200mg daily BPH: continue home flomax 0.4mg daily Complexity. Obesity Body mass index is 32.8 kg/m . - Follow with PCP for dietary and lifestyle modifications. Any conditions listed below are present on admission unless otherwise specified. . DVT prophylaxis with lovenox Disposition: admitted to [facility] Code status is Full Staffed [...] [J90]. Transplant Physician: Morgan Harris, Erma Roe, Fidelina Pierson, Luisa Steven, Renee Rivera, Daisha Max Building Construction Professor: José Miguel Garnica All Txt: 04/13/2020 (Kidney), [...] results found for: CYCLOSPORIN , CYCLOSPORIN2 , [id number] , CYCLORAND No results found for: SIROLIMUS [...] per Infectious Disease request in chart. Kevin Prince MD Pager [phone] [facility] 01-16-2024 History and physical note Images from the original note were not included. Internal Medicine Admission History & Physical Patient: George Styles, 1970, [id number] Physician: Timothy Joseph MD, PGY1, Pager #[phone], TM 1 service Date of face to [...] GUIDANCE 05/17/2022 Surgeon: Enzo Heart DO; Location: [facility] INTERVENTIONAL RADIOLOGY (VIR) LIVER TRANSPLANT, ORTHOTOPIC N/A 04/12/2020 Laterality: N/A; Surgeon: LU Palma; Location: [facility] SAME DAY SURGERY MAIN OR KIDNEY TRANSPLANT W/O [place] NEPHRECTOMY N/A 04/12/2020 Laterality: N/A; Surgeon: LU Palma; Location: [facility] SAME DAY SURGERY MAIN OR OTHER [...] itraconazole Fax results to: Dr. White - [phone] Transplant Neph - [phone] Gabapentin 400 MG capsule Sig: Take 1 [...] Physical Exam: Vitals: 01/16/2455 BP: 145/70 Resp: 17 Temp: 97.7 F [...] erythema: Skin: No jaundice or rash Neuro: kayak maker 3-7, 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 Strength [...] home amlodipine 5mg CAD: non-obstructive CAD on [facility] 2018. - continue home aspirin 81mg daily Gout: continue home allopurinol 200mg daily BPH: continue home flomax 0.4mg daily Complexity. Obesity Body mass index is 32.8 kg/m . - Follow with PCP for dietary and lifestyle modifications. Any conditions listed below are present on admission unless otherwise specified. . DVT prophylaxis with lovenox Disposition: admitted to [facility] Code status is Full Staffed [...] [J90]. Transplant Physician: Morgan Harris, Erma Roe, Fidelina Pierson, Luisa Steven, Renee Rivera, Daisha Max Building Construction Professor: José Miguel Garnica All Txt: 04/13/2020 (Kidney), [...] results found for: CYCLOSPORIN , CYCLOSPORIN2 , [id number] , CYCLORAND No results found for: SIROLIMUS [...] per Infectious Disease request in chart. Kevin Prince MD Pager [phone] documented in this encounter [facility] 01-12-2024 History of Present illness Narrative [facility] OP RX OUTREACH ADVANCED: Call Information: Date [...] Name: Prograf 0.2 MG Contact Info: Specialty ([place]) [phone] [facility] [phone] [facility] [phone] [place] [phone] Bedside Delivery ([facility]) [phone] [facility] OP RX OUTREACH ADVANCED: Call Information: Date and Time of Contact: 01/25/2024 10:23 AM Method of Contact: By Phone Contact Type: Prescriptions Contactor: [facility] OP Contactee: Patient Contact Outcome: Left message (prograf myco) Contact Info: Specialty (Yanci) [phone] [facility] [phone] [facility] [phone] [facility] [phone] Bedside Delivery ([facility]) [phone] documented in this encounter [facility] 01-12-2024 History of Present illness [facility]arrative [facility] [...] Name: Prograf 0.2 MG Contact Info: Specialty ([place]) [phone] [facility] [phone] [facility] [phone] [facility] [phone] Bedside Delivery ([facility]) [phone] [facility] RX OUTREACH ADVANCED: Call Information: Date and Time of Contact: 01/25/2024 10:23 AM Method of Contact: By Phone Contact Type: Prescriptions Contactor: [facility] Contactee: Patient Contact Outcome: Left message (prograf myco) Contact Info: Specialty ([place]anci) [phone] [facility] [phone] [facility] [phone] [facility] [phone] Bedside Delivery ([facility]) [phone] [facility] RX OUTREACH ADVANCED: Call Information: Date and Time of Contact: 01/27/2024 10:19 AM Method of Contact: By Phone Contact Type: Prescriptions Contactor: [facility] OP Contactee: Patient Contact Outcome: Left message (myco prograf) Contact Info: Specialty (Yanci) [phone] [facility] [phone] [facility] [phone] [facility] [phone] Bedside Delivery ([facility]) [phone] documented in this encounter [facility] 01-12-2024 History of Present illness [facility]arrative [facility] [...] Prograf 0.2 MG Contact Info: Specialty (Yanci) [phone] [facility] [phone] [facility] [phone] [place] [phone] Bedside Delivery ([facility]) [phone] [facility] RX OUTREACH ADVANCED: Call Information: Date and Time of Contact: 01/25/2024 10:23 AM Method of Contact: By Phone Contact Type: Prescriptions Contactor: [facility] Contactee: Patient Contact Outcome: Left message (prograf myco) Contact Info: Specialty ([place]) [phone] [facility] [phone] [facility] [phone] [facility] [phone] Bedside Delivery ([facility]) [phone] [facility] OP RX OUTREACH ADVANCED: Call Information: Date and Time of Contact: 01/27/2024 10:19 AM Method of Contact: By Phone Contact Type: Prescriptions Contactor: [facility] Contactee: Patient Contact Outcome: Left message (myco prograf) Contact Info: Specialty (Yanci) [phone] [facility] [phone] [facility] [phone] [facility] [phone] Bedside Delivery ([facility]) [phone] [facility] OP RX OUTREACH ADVANCED: Call Information: Date and Time of Contact: 02/01/2024 3:22 PM Contact Type: Prescriptions Contactor: [facility] OP Contactee: Patient Contact Outcome: Left message Shipping/Pickup: Medication Name: Mycophenolate 360mg and Prograf 0.2mg Pack Contact Info: Specialty ([place]) [phone] [facility] [phone] [facility] [phone] [place] [phone] Bedside Delivery ([facility]) [phone] documented in this encounter [facility] 01-06-2024 History of Present illness Narrative Associated [...] The neurologist wanted to send him to [facility] neurology but it is out [...] 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) documented in this encounter [facility] 10-06-2023 History of Present illness [facility]arrative [facility] [...] ; Prograf 0.2 MG Contact Info: Specialty ([place]) [phone] [facility] [phone] [facility] [phone] [facility] [phone] Bedside Delivery ([facility]) [phone] [facility] RX OUTREACH ADVANCED: Call Information: Date and Time of Contact: 10/23/2023 2:00 PM Method of Contact: By Phone Contact Type: Prescriptions Contactor: [facility] Contactee: Patient Contact Outcome: Left message and Call back later Shipping/Pickup: Medication Name: Mycophenolate 360mg and Prograf 0.2mg Contact Info: Specialty ([place]) [phone] [facility] [phone] [facility] [phone] [facility] [phone] Bedside Delivery ([facility]) [phone] documented [facility] Miscellaneous Notes Pt discharged home [...] the oxygen during the night. pt will last picker his oxygen from [employer] [facility], 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 This RN [...] 183) Infection Prevention/Resolution: making progress toward outcome Patient [...] Alejandra RN Patient seen ambulating in the velazquze with HEADMASTER/MISTRESS. Patient was mildly short of breath on [...] & HR 114. Messaged Mainor Loomis, via [employer] secure chat, Temp 100.8. His tylenol order [...] period of time. 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 Episode [...] Critical Care Medicine Message Mainor Loomis, via [employer] secure chat, Good evening, just an FYI, [...] period of time. 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 This [...] 4. Coronary artery disease. Associated attestation - Corw Diaz MD - 09/02/2023 6:58 PM EDT [...] [address] Loera here also (attorney law clerk) Dr. Diaz aware of pt's increased oxygen [...] (Adult) Intervention: Manage Suspected/Actual Infection Flowsheets (Taken 08/30/2023 1047) Fever Reduction/Comfort Measures: fluid intake increased lightweight bedding lightweight clothing medication administered Infection Management: aseptic technique maintained Intervention: Prevent Infection/Maximize Resistance Flowsheets Taken 08/30/2023 0748 Airway/Ventilation Management: pulmonary hygiene promoted Taken 08/29/2023 1046 Sleep/Rest Enhancement: regular sleep/rest pattern promoted Sent a secure [employer] chat to Rosi LUZ concerning patient's temp [...] Medicine-Pediatrics, PGY-2 Mr. Styles was admitted to [address] [place] [address]. On admission to R[facility], from home a [...] station when available. documented in this encounter [facility] 09-11-2023 History of Present illness Narrative Provided follow-up emotional and spiritual support. Patient shared about rosemary of discharge and looking forward to seeing family Oil Distributor Tender provided: - Supportive presence - Active listening - Validation of feelings/emotions Patient encouraged to request a histological illustrator as needed. Chaplains are available in-house 24 hours a day and 7 days a week. For urgent matters in [facility], please page [phone]. If the request is not urgent, please enter a consult. Consults are responded to within 24 hours. Senior Staff Oil Distributor Tender Angie Singh Mdiv, [facility] [place]ord [phone] [email or web address] 22/06 On-call Kirk: [phone] 22/06 Pager ,APOORVA, and Brock Maciel Pager [phone] 09/11/23 1430 Clinical Encounter Type Visited With Patient Visit Type Follow-up Pastoral Time Spent 15 min Referral Other (See Comment) (rounding) Spiritual Assessment Spiritual Observation Spirituality helpful Emotional Observation Coping well Hope Observation Specific hope focus Support Observation By Family Interventions Provided Active listening;Supportive presence Facilitated Verbalization of feelings Explored Expectations Packaging Materials Inspector Education Packaging Materials Inspector Service Available Yes Educated Patient Plan of Care Continue Visiting PRN Images from the original note were not included. [facility] ([facility] Note: Non-Verbal Med Rec [facility] received the following discharge prescription(s): Total cost is $0. I have reviewed the Discharge Rx Reconciliation Report. The discharge prescription(s) will be delivered to the patient on 09/11/2023. Dimitrios Gurrola RPh,PharmD Specialty ([place]) [phone] [facility] [phone] [facility] Bedside Delivery [phone] [facility] [phone] [facility] Bedside Delivery [phone] [facility] [phone] [facility] Bedside Delivery [phone] [place] [phone] [facility] [phone] Internal Medicine Daily Progress Note Patient: George Styles, 1970, [id number] Physician: Evan Kelly MD, PGY-1, TM1 service Subjective/Interval History: Patient continues to require oxygen overnight for desaturations. With insurance limitations, only accepting agency to provide home oxygen backed out. After calling them to discuss, Lynn stated she would be willing to have patient drive to their facility to last picker supplies, however they close at 5pm. 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 His [place] kidney disease was noted to be presumed [...] losartan 50mg BID CAD: non-obstructive CAD on [facility] 2018. - continue home aspirin 81mg daily, holding atorvastatin 20mg daily Gout: continue home allopurinol 200mg daily BPH: continue home flomax 0.4mg daily DVT PPX: SQH Code Status: Full Code Disposition: Pending clinical course. Anticipate eventual discharge home. Discussed with team and attending, Kevin Prince MD, on rounds. Signed, Evan Kelly MD [...] 1.17 04/28/2023 CREATSERUM 5.05 (H) 11/19/2018 Kevin Prince MD, [address] Mechanic of Clinical Medicine [facility] Images from the original note were not included. Final Discharge Planning and Transportation Final Discharge Planning Discharge Disposition: Home Services at Discharge: Outpatient clinical services (ie: lab draws, transfusions, injectables) (Home Oxygen by [facility]) Selected Continued Care - Admitted Since 08/28/2023 Durable Medical Equipment Coordination complete. Service Provider Selected Services Address Phone Fax Patient Preferred [employer] Durable Medical Equipment [address] [facility] [address] Internal Comment last updated by Lora Lawrence RN 09/10/2023 1334 Correct contact information: [employer]ural [employer] [address] [place] [address] [address] [place] [address] grade recorder- you do not need to call at discharge, I already notified the company. Addendum 1529 [facility] notified this they are out of patient's insurance area and will not be able to service this patient at time of discharge. Provider notified. Addendum 2931 Dr Kelly called [facility] spoke to Lynn and she said they are willing to accept patient if the patient would drive to the [place] office and last picker the supplies. Patient is willing to [...] Lora Colón RN, MSN, CCM, CMCN Clinical Bracelet Maker Novelty- [facility] Transplant #[phone] Department of Pharmacy Transplant Note Patient: George [...] dose adjustment Name: Matt Kramer RPh,PharmD Phone: [phone] Date/Time: 09/10/2023 11:33 AM This CM sent referral via [employer] for O2 concentrator to 4 agencies Start date today [facility] Addendum 1332 One accepting company reserved in [employer] [address] [place] [address] [place] [address] Lora Colón RN, MSN, CCM, CMCN Clinical Bracelet Maker Novelty- [facility] Transplant #[phone] NUTRITION FOLLOW-UP Nutrition Plan of Care: 1. Continue current diet order. 2. No oral supplements warranted at this time. 3. Monitor for significant weight changes. Monitor GI, skin integrity. 4. Monitor and encourage po intakes with goal of average po being 75-100%. 5. central processing technician to follow. ___ Met with patient [...] time. Will continue to monitor. RHIANNON [place]R Pager:[phone] Transplant Infectious Disease (Team 3) Progress Note [...] sign off. Please Epic message or page [phone] with questions. 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 His [place] kidney disease was noted to be presumed [...] He again had increased oxygen requirements on 6 am that resolved with repositioning and supportive [...] losartan 50mg BID CAD: non-obstructive CAD on [facility] 2019. - continue home aspirin 81mg daily, holding atorvastatin 20mg daily Gout: continue home allopurinol 200mg daily BPH: continue home flomax 0.4mg daily DVT PPX: SQH Code Status: Full Code Disposition: Pending clinical course. Anticipate eventual discharge home. Discussed with team and attending, Kevin Prince MD, on rounds. Signed, Evan Kelly MD [...] to follow. Please Epic message or page [phone] with questions. 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 His [place] kidney disease was noted to be presumed [...] losartan 50mg BID CAD: non-obstructive CAD on [facility] 2018. - continue home aspirin 81mg daily, holding atorvastatin 20mg daily Gout: continue home allopurinol 200mg daily BPH: continue home flomax 0.4mg daily DVT PPX: SQH Code Status: Full Code Disposition: Pending clinical course. Anticipate eventual discharge home. Discussed with team and attending, Kevin Prince MD, on rounds. 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 His [place] kidney disease was noted to be presumed [...] losartan 50mg BID CAD: non-obstructive CAD on [facility] 2018. - continue home aspirin 81mg daily, holding atorvastatin 20mg daily Gout: continue home allopurinol 200mg daily BPH: continue home flomax 0.4mg daily DVT PPX: SQH Code Status: Full Code Disposition: Pending clinical course. Anticipate eventual discharge home. Discussed with team and attending, Kevin Prince MD, on rounds. Signed, Evan Kelly MD [...] 1.17 04/28/2023 CREATSERUM 5.05 (H) 11/19/2018 Kevin Prince MD, SERA Road Mechanic of Clinical Medicine [facility] Transplant Infectious Disease [...] to follow. Please Epic message or page [phone] with questions. Ann Marie Haskins MD PGY-4, [...] he continues to improve. Please message via [employer] secure chat or page with any questions or concerns. Evan White DO Road Mechanic Division of Infectious Disease Transplant Infectious Disease [...] to follow. Please Epic message or page [phone] with questions. Evan White DO Transplant Infectious Diseases Images from the original note were not included. Pulmonary/Critical Care Medicine Daily Progress Note Reason for Consultation: bronch for infectious workup Requesting Physician: Dr. Prince CURRENT HOSPITALIZATION: Admit Date: 08/28/2023 [facility] LOS: 9 days Impression 1. Acute [...] and interpreted reviewed the radiographic data in IHIS/Geekliste/ZEALERwhere. 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 His [place] kidney disease was noted to be presumed [...] losartan 50mg BID CAD: non-obstructive CAD on [facility] 2018. - continue home aspirin 81mg daily, holding atorvastatin 20mg daily Gout: continue home allopurinol 200mg daily BPH: continue home flomax 0.4mg daily DVT PPX: SQH Code Status: Full Code Disposition: Pending clinical course. Anticipate eventual discharge home. Discussed with team and attending, Kevin Prince MD, on rounds. Signed, Evan Kelly MD [...] 1.17 04/28/2023 CREATSERUM 5.05 (H) 11/19/2018 Kevin Prince MD, FASN Road Mechanic of Clinical Medicine [facility] Images from the original note were not included. Pulmonary/Critical Care Medicine Daily Progress Note Reason for Consultation: bronch for infectious workup Requesting Physician: Dr. Prince CURRENT HOSPITALIZATION: Ad[facility]: [facility] and interpreted reviewed the radiographic data in IHIS/[employer]rent/ZEALERwhere. Acute Occupational Therapy Evaluation Prior to Admission [...] Assessment: Transfer Assessment: Sit to Stand Transfer King Level: Sit->Stand: independent Skilled Intervention/Details: Sit->Stand: x1 from EOB, x1 from toilet Stand to Sit Transfer King Level: Stand->Sit: independent Skilled Intervention/Details: Stand->Sit: x1 to toilet, x1 to EOB Functional Mobility: Functional Mobility King Level: Functional Mobility/Gait: independent Ambulation Distance (Feet): 20 Skilled Intervention/Details - Functional Mobility/Gait: pt performed functional mobility to/from RR w/ no overt LOB Outcome Score(s): CURRENT AM-[facility] Daily Activity Inpatient Short Form Putting on/Taking Off Lower Body Clothin - A Little Assistance Bathin - A Little Assistance Toiletin - A Little Assistance Putting on/Taking Off Upper Body Clothin - No Assistance Groomin - No Assistance Eatin - No Assistance CURRENT AM-[facility] Activity Raw Score: 21 CURRENT -[facility] Activity Functional Limitation/Modifier: 32.79% Currently Impaired [...] Acute Physical Therapy Evaluation Prior to Admission [facility] score(s): PRIOR LEVEL AM-PAC Mobility Raw Score: [...] Intact Mobility Assessment: Supine to Sit Mobility King Level: Supine->Sit: modified independence Bed Features/Set-up: Supine->Sit: Head of bed elevated Sit to Supine Mobility King Level: Sit->Supine: not tested Balance: Sitting Balance [...] environment. Transfer Assessment: Sit to Stand Transfer King Level: Sit->Stand: independent Skilled Intervention/Details: Sit->Stand: From EOB x 2 without difficulty. Stand to Sit Transfer King Level: Stand->Sit: independent Assistive Device: Stand->Sit: armed chair Skilled Rationale: Verbal cues, Positioning Gait/Functional Mobility: Gait Assessment King Level: Gait: stand-by assist Assistive Device: Gait: rollator Ambulation Distance (Feet): 400 Gait Deviations Identified: decreased grace, decreased gait speed Gait Skilled Rationale: verbal, upright posture, increase step length, increase foot clearance Skilled Intervention/Details - Gait: Reasonable foot clearnce without loss of balance but endorsing dyspnea as 6-7/10. 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 His [place] kidney disease was noted to be presumed [...] losartan 50mg BID CAD: non-obstructive CAD on [facility] 2018. - continue home aspirin 81mg daily, holding atorvastatin 20mg daily Gout: continue home allopurinol 200mg daily BPH: continue home flomax 0.4mg daily DVT PPX: SQH Code Status: Full Code Disposition: Pending clinical course. Anticipate eventual discharge home. Discussed with team and attending, Kevin Prince MD, on rounds. Signed, Evan Kelly MD [...] 1.17 04/28/2023 CREATSERUM 5.05 (H) 11/19/2018 Kevin Prince MD, SERA Road Mechanic of Clinical Medicine [facility] Transplant Infectious Disease [...] to follow. Please Epic message or page [phone] with questions. Evan White DO Transplant Infectious Diseases Images from the original note were not included. 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 His [place] kidney disease was noted to be presumed [...] outpt) -will need to adjust IS dosing / itra - Pulmonology consulted - bronchoscopy performed [...] losartan 50mg BID CAD: non-obstructive CAD on [facility] 2018. - continue home aspirin 81mg daily, holding atorvastatin 20mg daily Gout: continue home allopurinol 200mg daily BPH: continue home flomax 0.4mg daily DVT PPX: SQH Code Status: Full Code Disposition: Pending clinical course. Anticipate eventual discharge home. Discussed with team and attending, Kevin Prince MD, on rounds. Signed, Evan Kelly MD [...] given interaction with P 450 system Kevin Prince MD, SERA Road Mechanic of Clinical Medicine [facility] ERT Note: [...] MD, PhD Internal Medicine and Pediatrics PGY-3 [facility] Brief plan of care update: Called to bedside with MD Lipari due to patient with escalating respiratory requirements. [...] MD, PhD Internal Medicine and Pediatrics PGY-3 [facility] Transplant Infectious Disease (Team 3) Progress [...] to follow. Please Epic message or page [phone] with questions. 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 His [place] kidney disease was noted to be presumed [...] 2/2 renal function CAD: non-obstructive CAD on [facility] 2018. - continue home aspirin 81mg daily, holding atorvastatin 20mg daily Gout: continue home allopurinol 200mg daily BPH: continue home flomax 0.4mg daily DVT PPX: SQH Code Status: Full Code Disposition: Pending clinical course. Anticipate eventual discharge home. Discussed with team and attending, Kevin Prince MD, on rounds. 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 His [place] kidney disease was noted to be presumed [...] 2/2 renal function CAD: non-obstructive CAD on [facility] 2018. - continue home aspirin 81mg daily, atorvastatin 20mg daily Gout: continue home allopurinol 200mg daily BPH: continue home flomax 0.4mg daily DVT PPX: SQH Code Status: Full Code Disposition: Pending clinical course. Anticipate eventual discharge home. Discussed with team and attending, Kevin Prince MD, on rounds. Signed, Evan Kelly MD [...] 1.17 04/28/2023 CREATSERUM 5.05 (H) 11/19/2018 Kevin Prince MD, MAD[address] Road Mechanic of Clinical Medicine [facility] Progression of [...] Lora Colón RN, MSN, CCM, CMCN Clinical Bracelet Maker Novelty- R10 Transplant #[phone] Made introductory visit with patient. Provided emotional and spiritual support. Patient shared about: - Source of Rosemary: Camping/Fishing/Family - Spirituality/Evangelical Affiliation: raised Religion - Family Support/history - Experience with illness/hospital course - Hopes for healing/future Oil Distributor Tender provided: - Supportive presence - Active listening - Validation of feelings/emotions - Pledged prayer Patient encouraged to request a histological illustrator as needed. Chaplains are available in-house 24 hours a day and 7 days a week. For urgent matters in [facility], please page [phone]. If the request is not urgent, please enter a consult. Consults are responded to within 24 hours. Senior Staff Oil Distributor Tender Angie Singh Mdiv, [facility] [place] [phone] [email or web address] 22/06 On-call [place]: [phone] 22/06 Pager KIKE, and Brock Maciel Pager [phone] 09/02/23 8358 Clinical Encounter Type Visited With Patient Visit Type Introduction Pastoral Time Spent 15 min Referral Other (See Comment) (rounding) Spiritual Assessment Spiritual Observation Spirituality helpful Emotional Observation Coping well Hope Observation Specific hope focus Support Observation By Family Interventions Provided Active listening;Supportive presence Facilitated Verbalization of feelings Explored Expectations Packaging Materials Inspector Education Packaging Materials Inspector Service Available Yes Educated Patient Outcomes Patient Outcomes Reduced distress Plan of Care Continue Visiting PRN NUTRITION RISK SCREENING NOTE Nutrition Plan of Care: 1. Continue current diet order. 2. No oral supplements warranted at this time. 3. Monitor for significant weight changes. Monitor GI and skin integrity. 4. Monitor and encourage po intakes with goal of average po being 100%. 5. central processing technician to follow. George Styles is a 53 y.o. 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 His [place] kidney disease was noted to be presumed hepatorenal syndrome. His post-transplant course was noteworthy for nephrostomy tube (05/17/2022-09/10/2022) due to concern for ureteral stone. He presents as a direct admission for fever, cough, for infectious workup. Pt unavailable and information obtained via chart review Sourcing Assistant Screening Pt's appetite is good. Pt [...] with meds Food Allergies reviewed:Shellfish Cultural or Evangelical Restrictions/Preferences: None GI: Last Bowel Movement: 09/01/23 [...] time. Will continue to monitor. 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 His [place] kidney disease was noted to be presumed [...] 2/2 renal function CAD: non-obstructive CAD on [facility] 2018. - continue home aspirin 81mg daily, atorvastatin 20mg daily Gout: continue home allopurinol 200mg daily BPH: continue home flomax 0.4mg daily DVT PPX: SQH Code Status: Full Code Disposition: Pending clinical course. Anticipate eventual discharge home. Discussed with team and attending, Kevin Prince MD, on rounds. Signed, Evan Kelly MD Attending Physician Addendum I saw and personally examined Mr. Styles with the transplant medicine team. I discussed the findings and plan of the case. I agree with the history, physical examination, and medical decisions as outlined above. Kevin Prince MD Pager [phone] Summary: Pharmacy Med Rec Department of Pharmacy [...] Refills: 0 Provider: Zuly Bruno NP Pharmacy: [place], [place] Other Comments: Patient reported his Last Home Dose of mycophenolate & tacrolimus was on 08/28/23 at 0900. Patient reported he was taking Bactrim and benzonatate for fevers and a cough he was having. Please feel free to contact me with any further questions. Name: Heidy Chatman Phone #: [phone] Date/Time: 09/01/2023 2:01 PM Time Spent: 15 minutes Associated attestation - Matt Kramer RPhPharmJenna - 09/01/2023 2:28 PM EDT Department of Pharmacy Admission Medication Reconciliation Note Patient: George Styles Room/Bed: 1062/A I have reviewed the home medication list with the Medical Physicist. All changes to the home medication list have been updated in IHIS. Updated PICK UP AND DELIVERY DRIVER Med List: Prior to Admission Medications Prescriptions [...] questions. Name: Matt Kramer RPh,PharmD Phone #: [phone] Date/Time: 09/01/2023 2:28 PM Transplant Infectious Disease [...] crypto antigen, EBV PCR -follow pending histo, [id number] labs These recommendations were discussed with the primary team. Transplant ID (Team 3) will continue to follow. Please Epic message or page [phone] with questions. 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 His [place] kidney disease was noted to be presumed [...] 2/2 renal function CAD: non-obstructive CAD on [facility] 2018. - continue home aspirin 81mg daily, atorvastatin 20mg daily Gout: continue home allopurinol 200mg daily BPH: continue home flomax 0.4mg daily DVT PPX: SQH Code Status: Full Code Disposition: Pending clinical course. Anticipate eventual discharge home. Discussed with team and attending, Kevin Prince MD, on rounds. Signed, Evan Kelly MD [...] 1.17 04/28/2023 CREATSERUM 5.05 (H) 11/19/2018 Kevin Prince MD, SERA Road Mechanic of Clinical Medicine [facility] Discharge Planning Patient [...] Yes Name and Contact information: Gian Styles ([phone]) Reviewed and Updated in Demographics? : Yes Outpatient Providers Does patient have a primary care physician? : Yes When was the patient's last PCP visit?: > 30 days Does the patient follow any specialists?: No Reviewed and updated Care Team?: Yes Patient Care Team: Zuly Bruno CNP as PCP - General Environment/Caregivers Is the patient from a facility or assisted?: No Patient lives with: Alone Living Environment: [...] patient on Anticoagulation? : No [id number] [place] [address] - [address] [address] Associate Professor Computer Science Does the patient or nutrition representative express financial concerns? : No Employed?: Disabled Coping/Stress Concerns about patient s coping and stress?: No Concerns about patient s caregiver s coping and stress?: No Values and Beliefs Cultural or voodoo practices that may impact discharge planning and/or [...] Plan 1. Identified self and role as Bracelet Maker Novelty. 2. Confirmed and updated demographics and treatment team. 3. Bracelet Maker Novelty will continue to follow with medical team/pt for any other additional discharge needs. Kasandra DON RN *Please note I am float CM and work Thursday and Thursday every other week. Please call [phone] for assist in my absence. 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 His [place] kidney disease was noted to be presumed [...] 2/2 renal function CAD: non-obstructive CAD on [facility] 2018. - continue home aspirin 81mg daily, atorvastatin 20mg daily Gout: continue home allopurinol 200mg daily BPH: continue home flomax 0.4mg daily DVT PPX: SQH Code Status: Full Code Disposition: Pending clinical course. Anticipate eventual discharge home. Discussed with team and attending, Kevin Prince MD, on rounds. 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 His [place] kidney disease was noted to be presumed [...] losartan 50mg BID CAD: non-obstructive CAD on [facility] 2018. - continue home aspirin 81mg daily, atorvastatin 20mg daily Gout: continue home allopurinol 200mg daily BPH: continue home flomax 0.4mg daily DVT PPX: SQH Code Status: Full Code Disposition: Pending clinical course. Anticipate eventual discharge home. Discussed with team and attending, Kevin Prince MD, on rounds. Signed, Laurel Serrano MD, PhD documented in this encounter [facility] 09-10-2023 Hospital Discharge instructions Laurel [...] a sleep doctor. You will need to last picker the oxygen concentrator when you leave [...] on healthy foods. documented in this encounter [facility] 09-01-2023 Consult note Associated Order (s): IP CONSULT TO PULMONOLOGY Pulmonary Medicine Inpatient Consultation Reason for Consultation: bronch for infectious workup Requesting Physician: Dr. Prince Pulmonary Attending Physician: Dr. Diaz CURRENT HOSPITALIZATION: [...] Recommendations: - Plan to bronch tomorrow morning. NPO[facility], order placed - would repeat HIV, last [...] period of time. 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 Other histories as documented in [...] had any ill contacts. [place] [facility]. REVIEW OF SYSTEMS A complete [...] GUIDANCE 05/17/2022 Surgeon: Enzo Heart DO; Location: [facility] INTERVENTIONAL RADIOLOGY (VIR) LIVER TRANSPLANT, ORTHOTOPIC N/A 04/12/2020 Laterality: N/A; Surgeon: LU Palma; Location: [facility] SAME DAY SURGERY MAIN OR KIDNEY TRANSPLANT W/O [place] NEPHRECTOMY N/A 04/12/2020 Laterality: N/A; Surgeon: LU Palma; Location: [facility] SAME DAY SURGERY MAIN OR OTHER [...] Alamo MD I can be reached via [employer] secure message (preferred) or Pager #[phone] documented in this encounter [facility] 08-28-2023 History and physical note Images from the original note were not included. Internal Medicine Admission History & Physical Patient: George Styles, 1970, [id number] Physician: Aric Turner MD, PGY1, Pager #[phone], IC service Date of face to face patient [...] So he went to see the transplant regulatory submissions specialist. He was found elevated Cr and asked [...] Appetite is ok now. Urine is about 4537-0684 ml every day. 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 His [place] kidney disease was noted to be presumed [...] Urinary histoplasmosis - PJP, candid PCR - Wound/Ostomy Clinical Nurse Specialist transplant ID Acute Kidney Injury with Kidney [...] losartan 50mg BID CAD: non-obstructive CAD on [facility] 2018. - continue aspirin 81mg daily, atorvastatin [...] FUO. Transplant Physician: Morgan Harris, Erma Roe, Fidelina Pierson, Luisa Steven, Renee Rivera, Daisha Max Building Construction Professor: José Miguel Garnica All Txt: 04/13/2020 (Kidney), [...] results found for: CYCLOSPORIN , CYCLOSPORIN2 , [id number] , CYCLORAND No results found for: SIROLIMUS , RAPAMUNE , RAPAMYCIN No results found for: EVEROLIMUS , EVRLMSTRGH , EVERTRGHMANE , EVRLMSRND Lab Results Component Value Date TACROLIMUS 8.9 08/29/2023 TACROTRGHMAN 4.1 08/17/2023 Patient presently with fever of unknown origin. Etiology unclear Patient has had prior workup which has been unremarkable Goss culturing Obtaining imaging chest abdomen and pelvis Requesting input from Infectious Disease. Rest as above. Kevin Prince MD Pager [phone] documented in this encounter [facility] 08-28-2023 History of Present illness Narrative Images from the original note were not included. 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 Building Construction Professor: Anayeli Burt Date of Liver Transplant: 04/13/2020 (Kidney), 04/13/2020 (Liver) 3 years 4 months post Liver/Kidney Transplant Primary Disease: Hypertensive Nephrosclerosis Transplant Center Machine Operator: Erma Roe/ Daisha Max Primary Care physician: Zuly Bruno Last Transplant Clinic appointment :06/12/23 with BA Gutierrez combined liver/kidney transplant from a Donation after [...] and faMOTIdine === None Specified Preferred Lab: [facility] Change in lab frequency / new order today: No- continue labs every 3 months Labs needed in clinic today? Yes COORDINATOR NOTES: Per note from Victor Hugo liver Coordinator on 08/24/23 :Patient seen in ED last Shay for elevated temp, fever of 102. Cr [...] every 12 hours. ADDITIONAL INFORMATION: None Specified, [id number] [place] [address] - [address] [facility] [address] [facility] [address] [facility] [address] [facility] [address] [id number] [place] [address] [address] [facility] 201 [facility] [address] [facility] [address], [place] [address] [facility] [address] ROS and SCREEN: Chest Pain: negative Cough: [...] PHYSICIAN: I saw George Styles at the [facility] on 08/28/2023. Patient is a 53 y.o. 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 His [place] kidney disease was noted to be presumed [...] GUIDANCE 05/17/2022 Surgeon: Enzo Heart DO; Location: [facility] INTERVENTIONAL RADIOLOGY (VIR) LIVER TRANSPLANT, ORTHOTOPIC N/A 04/12/2020 Laterality: N/A; Surgeon: LU Palma; Location: [facility] SAME DAY SURGERY MAIN OR KIDNEY TRANSPLANT W/O [place] NEPHRECTOMY N/A 04/12/2020 Laterality: N/A; Surgeon: LU Palma; Location: [facility] SAME DAY SURGERY MAIN OR OTHER [...] you have any questions. Steve Latham MD head of housekeeping Division of Nephrology [facility] documented in this encounter [facility] 08-28-2023 Instructions Mainor Busby RN - 08/28/2023 2:15 PM EDT - Admission for fevers, cough, and night sweats documented in this encounter [facility] 08-19-2023 History of Present illness Narrative [facility] RX OUTREACH ADVANCED: Call Information: Date and Time of Contact: 08/19/2023 2:52 PM Method of Contact: By Phone Contact Type: Prescriptions Contactor: [facility] Contactee: Patient Shipping/Pickup: Medicare B Refill?: No Medication Name: Tacro 0.5mg Delivery Method: Air Delivery Location: Home Signature Required: No Mailing/Pickup Date: 08/25/2023 Shipping Address: [address] [place] [address] [address] Contact Info: Specialty (Whe[place]) [phone] Jakob [phone] [facility] [phone] David [phone] Bedside Delivery ([facility]) [phone] documented in this encounter [facility] 06-12-2023 History of Present illness Narrative Images from the original note were not included. George Styles is a 53 y.o. 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 No longer follows with a local regulatory submissions specialist. History of Present Illness: Since George was [...] included medical records and lab results. Rebeca Gutierrez MSN, RN, HEADMASTER/MISTRESS-BC, CCTN Certified Nurse Practitioner [facility] [address] [facility] [address] documented in this encounter [facility] 06-12-2023 Instructions JEANNA Hess - 06/12/2023 3:00 PM EDT No change in immunosuppression. documented in this encounter [facility] 06-10-2023 History of Present illness Narrative [facility] RX OUTREACH ADVANCED: Call Information: Method of Contact: By Phone Contact Type: Prescriptions Contactor: [facility] Contactee: Patient Contact Outcome: Left message Shipping/Pickup: Medication Name: Mycophenolate sod 180 mg Contact Info: Specialty (Yanci) [phone] [facility] [phone] [facility] [phone] David [phone] Bedside Delivery ([facility]) [phone] [facility] RX OUTREACH ADVANCED: Call Information: Date and Time of Contact: 06/12/2023 9:43 AM Method of Contact: By Phone Contact Type: Prescriptions Contactor: [facility] Contactee: Patient Contact Outcome: Left message and Follow-up Shipping/Pickup: Medicare B Refill?: No Medication Name: Myco 180 Contact Info: Specialty (Yanci) [phone] Jakob [phone] [facility] [phone] David [phone] Bedside Delivery ([facility]) [phone] [facility] RX OUTREACH ADVANCED: Call Information: Date and Time of Contact: 06/12/2023 10:08 AM Method of Contact: By Phone Contact Type: Prescriptions Contactor: [facility] Contactee: Patient Shipping/Pickup: Medicare B Refill?: No Medication Name: Mycophenolate 180mg DR Delivery Method: Air Delivery Location: Home Signature Required: No Mailing/Pickup Date: 06/17/2023 Shipping Address: [address] [place] [address] Contact Info: Specialty (Yanci) [phone] [facility] [phone] [facility] [phone] David [phone] Bedside Delivery ([facility]) [phone] documented in this encounter [facility] 04-13-2023 Note [facility] Subjective George Styles is [...] Legacy Encounter on (more content not included)... [facility] 03-12-2023 History of Present illness Narrative [facility] RX OUTREACH ADVANCED: Call Information: Date and Time of Contact: 03/12/2023 10:34 AM Method of Contact: By Phone Contact Type: Prescriptions Contactor: [facility] Contactee: Patient Shipping/Pickup: Medicare B Refill?: No Medication Name: Mycophenoloate sod 360 mg prednisone 5mg Delivery Method: Air Delivery Location: Home Signature Required: No Mailing/Pickup Date: 03/16/2023 Shipping Address: [address] [place] [address] Contact Info: Specialty (Whe[place]) [phone] [facility] [phone] [facility] [phone] David [phone] Bedside Delivery ([facility]) [phone] [facility] OUTREACH ADVANCED: Call Information: [...] Required: No Mailing/Pickup Date: 03/19/2023 Shipping Address: [address] [place] [address] [address] Contact Info: Specialty (Yanci) [phone] [facility] [phone] [facility] [phone] David [phone] Bedside Delivery ([facility]) [phone] documented in this encounter [facility] 03-10-2023 History of Present illness Narrative [facility] OUTREACH ADVANCED: Call Information: Date and Time of Contact: 03/10/2023 12:00 PM Method of Contact: By Phone Contact Type: Prescriptions Contactor: [facility] Contactee: Patient Contact Outcome: Left message and Call back later Shipping/Pickup: Medication Name: Mycophenolate ; Tacrolimus Contact Info: Specialty ([place]) [phone] Jakob [phone] [facility] [phone] David [phone] Bedside Delivery ([facility]) [phone] documented in this encounter [facility] 03-10-2023 History of Present illness Narrative [facility] OUTREACH ADVANCED: Call Information: Date and Time of Contact: 03/10/2023 12:00 PM Method of Contact: By Phone Contact Type: Prescriptions Contactor: [facility] Contactee: Patient Contact Outcome: Left message and Call back later Shipping/Pickup: Medication Name: Mycophenolate ; Tacrolimus Contact Info: Specialty ([place]) [phone] Jakob [phone] [facility] [phone] David [phone] Bedside Delivery ([facility]) [phone] [facility] RX OUTREACH ADVANCED: Call Information: Date and Time of Contact: 03/12/2023 10:32 AM Method of Contact: By Phone Contact Type: Prescriptions Contactor: [facility] Contactee: Patient Contact Outcome: Left message Shipping/Pickup: Medication Name: Mycophenolate sodium (MYFORTIC) 180 MG Tab tacrolimus 0.5 mg Contact Info: Specialty ([place]) [phone] Jakob [phone] [facility] [phone] David [phone] Bedside Delivery ([facility]) [phone] documented [facility] History of Present illness Narrative -Referring Provider for today's consult: Daisha Max DO -Primary Care Provider: Zuly Bruno History of Present Illness George Styles is a 52 y.o. male who [facility] to [facility] today for follow-up of [...] GUIDANCE 05/17/2022 Surgeon: Enzo Heart DO; Location: [facility] INTERVENTIONAL RADIOLOGY (VIR) LIVER TRANSPLANT, ORTHOTOPIC N/A 04/12/2020 Laterality: N/A; Surgeon: LU Palma; Location: [facility] SAME DAY SURGERY MAIN OR KIDNEY TRANSPLANT W/O [place] NEPHRECTOMY N/A 04/12/2020 Laterality: N/A; Surgeon: LU Palma; Location: [facility] SAME DAY SURGERY MAIN OR OTHER [...] 0.3 12/29/2022 Explant Pathology Pathologic Diagnosis A. [place] liver, orthotopic liver transplant resection (1458 gram): [...] A/P with IV contrast (06/27/2022): 1. Both [place] kidneys are atrophic with improvement in right-sided [...] frequent nighttime urination, etc). Daisha Max DO Road Mechanic Gastroenterology, Hepatology and Nutrition [facility] Pager: [phone] Images from the original note were not included. 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 Building Construction Professor: Anayeli Burt Date of Liver Transplant: 04/13/2020 (Kidney), 04/13/2020 (Liver) 2 years, 8 months post Liver/Kidney Transplant Primary Disease: Hypertensive Nephrosclerosis Transplant Center Machine Operator: Steve Latham Primary Care physician: Zuly [...] levels: No results found for: CYCLOSPORIN, CYCLOSPORIN2, [id number], CYCLORAND No components found for: CYCLOSPORINE, 2HR [...] hours. ADDITIONAL INFORMATION: None Specified [id number] [place] [address] - [address] [facility] [address] [facility] [address] [facility] [address] , [address] [facility] [address] [facility][id number] [place] [address] [address] [facility] [address] [place] [id number] [facility] [address], [facility] [address] [place] [address] ROS and SCREEN: Chest Pain: negative Cough: [...] ADDRESS WITH PHYSICIAN: documented in this encounter [facility] 01-16-2023 Instructions José Miguel Garnica RN - 01/16/2023 9:40 AM EST - Labs Every 2 months - Discuss night time urination with your PCP - Schedule Colonoscopy through PCP - Follow up in 1 year documented in this encounter [facility] 09-10-2022 History of Present illness [...] and no hydronephrosis. Some reflux up the [place] right ureter but good drainage of both transplant and [place] ureter to the bladder. Nephrostomy tube was [...] transplant, orthotopic (N/A, 04/12/2020); kidney transplant w/o [place] nephrectomy (N/A, 04/12/2020); and placement nephrostomy catheter [...] Negative for , diarrhea, constipation Genitourinary: See [place] Neurological: Negative for headaches. Lymph/Heme: Negative for [...] x 4, Normal strength. No edema. Skin: [place], warm, and dry. There are no rashes [...] and no hydronephrosis. Some reflux up the [place] right ureter but good drainage of both transplant and [place] ureter to the bladder. Nephrostomy tube was [...] MD 09/10/22 documented in this encounter [facility] 07-07-2022 History of Present illness [...] assisted off the table and escorted to [place] where they made a follow up. Associated [...] to have transplant ureter with anastomosis to [place] right ureter. Nephrostogram without filling defects and no hydronephrosis. Some reflux up the [place] right ureter but good drainage of both transplant and [place] ureter to the bladder. Nephrostomy tube was removed without issue. Patient does have some sensation of incomplete bladder emptying and occasional sensation in his right flank. PVR today was 33cc. Will re-evaluate urinary symptoms at next appointment. --continue Flomax --RTC in one month flow flow/PVR/IPSS Patient to call with any additional questions or concerns. Ryan Yepez MD 07/07/22 documented in this encounter [facility] 06-27-2022 History of Present illness [...] transplant, orthotopic (N/A, 04/12/2020); kidney transplant w/o [place] nephrectomy (N/A, 04/12/2020); and placement nephrostomy catheter [...] Negative for , diarrhea, constipation Genitourinary: See [place] Neurological: Negative for headaches. Lymph/Heme: Negative for [...] x 4, Normal strength. No edema. Skin: [place], warm, and dry. There are no rashes [...] yo male with a [facility] to the [facility] in 2019. Nephrostomy tube placed 05/17 due [...] bag if needed. documented in this encounter [facility] 06-27-2022 History and physical note Patient was evaluated in clinic as a nurse visit. Please refer to Rena Brewster's note. [facility] Work Phone: 06-27-2022 History and physical note Patient was evaluated in clinic as a nurse visit. Please refer to Rena Brewster's note. documented in this encounter [facility] 06-27-2022 History of Present illness Narrative TEACHING REGARDING TX NEPH COMPLETED-NEPH TUBE SITE DRY AND INTACT-CLEAR YELLOW URINE IN THE BAG-INSTRUCTED ABOUT FLUSHING, BAG CHANGING ETC. NUMEROUS QUESTIONS ASKED AND ANSWERED-VERBALIZED UNDERSTANDING documented in this encounter [facility] 06-18-2022 Note EXAMINATION: CT ABD/ [...] mass or enlargement. KIDNEYS: Marked atrophy of [place] kidneys. Transplant right pelvic kidney with percutaneous [...] by: MÓNICA JIMENEZ Date: 2022-06-18 13:53 [facility] 06-12-2022 Instructions Anayeli Christianson RN - 06/12/2022 3:21 PM EDT Do not take apart/disrupt nephrostomy tube system. Call Interventional Radiology and/or on-call transplant nurse [phone] for instruction if need to flush (clot or decreased flow). Take cipro 500mg, one tablet, twice per day for 14 days documented in this encounter [facility] 06-12-2022 History of Present illness Narrative Images from the original note were not included. 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 CT [...] transport for appointment: no Did front office agent confirm current address and insurance information [...] LAB AND PHARMACY: None Specified [facility] [place] [address] - [address] [facility] [address] [facility] [address] [facility] [address] [facility], [address] [facility] [address] [id number] [place] [address] [address] [facility] [address] [facility] [address] [facility] [address], [place] [address] [facility] [address] ROS and SCREEN: Chest Pain: negative Cough: negative SOB: negative Abd Pain: negative Nausea: positive Vomiting: negative Diarrhea: negative Constipation: negative Dysuria: positive Edema: negative Tremors: negative Headaches: negative Wound issues: negative Pt has neph tube w clear yellow urine. States he had a small clot that he dislodged QUESTIONS OR CONCERNS TO ADDRESS WITH PHYSICIAN: I saw George Styles at the [facility] on 06/12/2022. Patient is a 52 y.o. 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 His [place] kidney disease was noted to be presumed [...] 04/12/2020 Laterality: N/A; Surgeon: LU Palma; Location: [facility] SAME DAY SURGERY MAIN OR KIDNEY TRANSPLANT W/O [place] NEPHRECTOMY N/A 04/12/2020 Laterality: N/A; Surgeon: LU Palma; Location: [facility] SAME DAY SURGERY MAIN OR OTHER [...] you have any questions. Steve Latham MD head of housekeeping Division of Nephrology [facility] documented in this encounter [facility] 06-04-2022 Instructions TATI GROVE - 06/04/2022 11:04 AM EDT Thank you for joining us for your neph tube follow up. We recommend routine exchange every 8-10 weeks. Please reach out at [phone] when it is time to set your next routine exchange. Thank you IR clinic documented in this encounter [facility] 06-04-2022 History of Present illness [...] exchange. Verbalized understanding. documented in this encounter [facility] 05-20-2022 Note Formatting of this [...] time of his discharge. Leon Cook RN [facility] 05-20-2022 Miscellaneous Notes Patient discharged. [...] provide teaching before his discharge Leon RN #[id number] Leon Cook RN Afternoon assessment completed at [...] Interdisciplinary Rounds/Family Conf Outcome: Ongoing Discussed with [facility] re: possible urine culture performed at their facility. However, based on urinalysis completed at that time, which was only notable for hematuria, culture was not performed and sample no longer feasible for culture. Liam Julian MD Internal Medicine/Pediatrics, PGY-3 2003: [employer] message sent to Dr Justyn Wen, regarding [...] has only had 25ml urine output in matias this afternoon. Urology Plan of Care Mr. [...] with questions. Evan Byrd MD Urology, PGY-2 #[id number] I certify that this patient requires inpatient services at this time. I anticipate the expected length of stay will include at least two midnights. Inpatient services are due to the following medical concerns Obstructive kidney stone. Plans for post hospitalization care will be discharge to home. No change from previous assessment. VSS/RA. Pain control with PRNs. Matias with little UOP overnight - urine pink [...] care explained choices provided On admission to [facility], a dual RN initial assessment of skin condition was performed by Kallie Lorenzana RN and Sheri Arguelles RN. Skin Assessment: WDL Jose Score: 20 LDA Added:N Kallie Lorenzana RN documented in this encounter [facility] 05-20-2022 Note Formatting of this [...] discharge/transition of care. Outcome: Adequate for Discharge [facility] 05-20-2022 Note Formatting of this n ote might be different from the original. Anne Dillard MD R10 [address]rell[address] Please let's have a clear order on how the nephrostomy site dressing need to be changed when the patient goes home so we provide teaching before his discharge Leon RN #[id number] Leon Cook RN [facility] 05-20-2022 History of Present illness Narrative Images from the original note were not included. [facility] Note: [facility] received the following discharge prescription(s): Medication reconciliation was completed with comparison to discharge reconciliation report. The prescription(s) will be delivered to the patient's bedside on 05/20/22. Total cost is $0. Yanira Her RPh,PharmD Specialty (Yanci) [phone] Jakob [phone] [facility] [phone] David [phone] [place] [phone] Bedside Delivery ([facility]) [phone] Attending I saw George Styles at the [facility] on 05/19/2022. I saw and [...] Daily Progress Note Patient: George Styles, 1970, [id number] Physician: Liam Julian MD, PGY-3, Pager #[phone], [id number] Subjective/Interval History: No acute events overnight. Passed [...] agree with neph tube placement - Discontinued matias History of liver and kidney transplant: Patient [...] if transplant nephrology still thinks appropriate. Daya Aguilar (Peggy) Les, MD Division of Hospital Medicine Pager [phone] Attending I saw George Styles at the [facility] on 05/18/2022. I saw and [...] Nishant Gamez MD 8.6 mg at 05/17/22 09 sodium chloride 0.9% IV solution 250 mL [...] oxalate to prevent future stones Can remove matias Maxi Pringle MD Internal Medicine Daily Progress Note Patient: George Styles, 1970, [id number] Physician: Nishant Gamez MD, PGY2, Pager #[phone], IW2service Subjective/Interval History: Nephrostomy tube placed yesterday with a lot of urine output and significant improvement in creatinine. 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 - Restart home tacrolimus - continue cellcept 360 bid. CAD Continue aspirin and statin Htn Home regimen continued with amlodipine and holding losartan GERD Pepcid DVT prophylaxis with heparin Disposition: GM 4 for goss control and infectious workup Code status is [...] to have stablized for this to be nutrition representative. Daya (Aggie Saldana MD Division of Hospital Medicine Pager [phone] Internal Medicine Daily Progress Note Patient: George Styles, 1970, [id number] Physician: Nishant Gamez MD, PGY2, Pager #[phone], [id number] Subjective/Interval History: Worsening creatinine this morning with minimal urine output. Paged IR to let them no of his worsening kidney function. They plan for nephrostomy tube placement this morning. Objective: Vitals: 05/17/22 0334 BP: 134/71 Pulse: 122 [...] stone, agree with neph tube placement - Matias placed before transfer History of liver and [...] prophylaxis with heparin Disposition: GM 4 for goss control and infectious workup Code status is [...] is still working to his knowledge. Daya (Nunu) Jeff Saldana MD Division of Hospital Medicine Pager [phone] Attending I saw George Styles at the [facility] on 05/17/2022. 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 [...] follow. Introduced self and role of the histological illustrator to patient. Provided emotional and spiritual support and the patient responded by sharing their experience and discussed the following: - Spirituality/Evangelical Affiliation: As a kid attended [employer] but not a strong identity now - Family support - pt's brothers live close by Oil Distributor Tender provided: - Supportive presence - Active listening - Validation of feelings/emotions Patient encouraged to request a histological illustrator as needed. Chaplains are available in-house 24 hours a day and 7 days a week. For urgent matters in [facility], please page [phone]. If the request is not urgent, please enter a consult. Consults are responded to within 24 hours. Angie Singh Mdiv, [facility] Burn [facility] and Transplant [place] [address] [employer] Distributor Tender [facility] Distributor Tender Kirk [phone] [email or web address] 22/06 [facility] Pager [phone] 22/06 Pager ,BS, and Brock 1500 22/06 David Pager [phone] 05/16/22 1129 Clinical Encounter Type Visited With Patient Visit Type Introduction Pastoral Time Spent 15 min Referral Other (See Comment) (Rounding) Spiritual Assessment Spiritual Observation Spirituality helpful;Identifies as (see comment) (Synagogue) Emotional Observation Coping well Hope Observation Hopeful and accepting Support Observation By Family Interventions Provided Active listening;Supportive presence Facilitated Verbalization of feelings;Sharing of life story;Identifying support system Explored Expectations Packaging Materials Inspector Education Packaging Materials Inspector Service Available Yes Educated Patient Outcomes Patient Outcomes Articulated purpose/meaning Plan of Care Continue Visiting PRN Internal Medicine Daily Progress Note Patient: George Styles, 1970, [id number] Physician: Nishant Gamez MD, PGY2, Pager #[phone], [id number] Subjective/Interval History: Overall feeling okay this morning. [...] stone, agree with neph tube placement - Matias placed before transfer History of liver and [...] prophylaxis with heparin Disposition: GM 4 for goss control and infectious workup Code status is [...] he has almost no urinary output. His Matias catheter is flushing well. Concern for urinary [...] UTI while waiting on urinary cx. 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 [...] Supervision Transfer Assessment: Sit to Stand Transfer King Level: Sit->Stand: independent Skilled Intervention/Details: Sit->Stand: x1 from EOB Stand to Sit Transfer King Level: Stand->Sit: supervision Assistive Device: Stand->Sit: armed chair Skilled Rationale: Controlled descent for sitting, Verbal cues Gait/Functional Mobility: Gait Assessment King Level: Gait: supervision Assistive Device: Gait: gait belt Gait Distance (feet): 200 Gait Deviations Identified: decreased grace, decreased step length, decreased stride length Gait Skilled Rationale: verbal, upright posture Skilled Intervention/Details - Gait: Pt with steady gait without LOB or complaints of SOB. Stairs: Stairs Assessment King Level: Stair Negotiation: stand-by assist Assistive Device: [...] reported no concerns with discharging home with kinsman support. 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 IADL History IADLs: independent Primary Language: Kittitian Home Management Skills: independent Meal Prep Responsibility: [...] Assessment: Transfer Assessment: Sit to Stand Transfer King Level: Sit->Stand: independent Skilled Rationale: Cues for increased safety Skilled Intervention/Details: Sit->Stand: x1 EOB Stand to Sit Transfer King Level: Stand->Sit: supervision Assistive Device: Stand->Sit: gait belt, armed chair Skilled Rationale: Verbal cues, Controlled descent for sitting, Cues for increased safety Skilled Intervention/Details: Stand->Sit: cues for hand placement and controlled descent Functional Mobility: Functional Mobility King Level: Functional Mobility/Gait: stand-by assist Assistive Device: [...] 04/12/2020 Laterality: N/A; Surgeon: LU Palma; Location: [facility] SAME DAY SURGERY MAIN OR KIDNEY TRANSPLANT W/O [place] NEPHRECTOMY N/A 04/12/2020 Laterality: N/A; Surgeon: LU Palma; Location: [facility] SAME DAY SURGERY MAIN OR OTHER [...] by: Mel Norman OT, OTR/L License #: [id number] pager # [phone] 05/20/2022 Upon discontinuation of Acute Care Occupational Therapy Services or patient discharge from the hospital this note represents the current Occupational Therapy Discharge Summary. documented in this encounter [facility] 05-20-2022 Hospital course Narrative Discharge [...] during his recent hospital stay at [facility]. As you may know, George Styles, is [...] Saldana MD Division of Hospital Medicine p: [phone] f: [phone] CONSULTS DURING ADMISSION: IP CONSULT TO SURGERY - UROLOGY IP CONSULT TO NEPHROLOGY - TRANSPLANT (MEDICINE) IP CONSULT TO INTERVENTIONAL RADIOLOGY IP CONSULT TO PHYSICAL THERAPY IP CONSULT TO OCCUPATIONAL THERAPY IP CONSULT TO PHARMACY BEDSIDE DISCHARGE MED DELIVERY IMAGING / PROCEDURES / RESULTS: Should you require further information or copies of results or reports please contact Medical Information Management @ [phone] LABS AT TIME OF DISCHARGE: Lab Results [...] Bruno [address] / [place] [address] MEDICATIONS: Discharge Orders CT ABDOMEN/PELVIS WITHOUT CONTRAST [...] CAPS Generic drug: docusate Follow-up: Zuly Bruno, PHYSICIAN GENERAL PRACTICE [address] [facility] [address] Schedule an appointment as soon as possible for a visit Follow-up appointment with your, primary care physician within 7-10 days, after discharge. [address] [facility] [phone] Follow up The department of urology will call you with a follow up appointment. LU Ovalle [address] [facility] [address] Follow up Please make a follow up appointment with Dr. Latham's office. Upcoming Appointments (up to five)-Some appointments for Medical Center outpatient clinics or diagnostic testing locations are not displayed below Provider Department Dept Phone 06/04/2022 10:40 AM IR [facility] Interventional Radiology Clinic [phone] 06/27/2022 1:[address] [facility], [facility] Department of Radiology Arrive at: Arrive to First Floor Registration Desk [phone] 06/27/2022 2:40 PM Ryan Yepez [facility] Arrive at: Arrive to 2nd Floor, Registration [address] 10/31/2022 1:00 PM Steve Latham [facility] Trans[facility] [phone] 01/16/2023 9:40 AM TRANSPLANT HEPATOLOGY 3, [facility] [phone] Associated attestation - Daya Saldana MD - [...] Once the outside hospital ED where a Matias was placed without significant urine output. CT [...] Saldana MD Division of Hospital Medicine Pager [phone] documented in this encounter [facility] 05-20-2022 Hospital Discharge instructions Giulia [...] be changed by Interventional Radiology. Please call [phone] to schedule this appointment and with any questions or concerns you may have regarding the nephrostomy tube. If you have questions or concerns, please call Interventional Radiology at SOMEONE FROM INTERVENTIONAL RADIOLOGY WILL CALL YOU FOR A FOLLOW UP IN THE IR CLINIC Giulia Cavazos RN Nurse Coordinator Interventional Radiology Interventional Radiology Outpatient scheduling documented in this encounter [facility] 05-19-2022 Note Formatting of this [...] Ongoing Goal: Interdisciplinary Rounds/Family Conf Outcome: Ongoing [facility] 05-19-2022 Note Formatting of this n ote might be different from the original. Discussed with [facility] re: possible urine culture performed at their facility. However, based on urinalysis completed at that time, which was only notable for hematuria, culture was not performed and sample no longer feasible for culture. Liam Julian MD Internal Medicine/Pediatrics, PGY-3 [facility] 05-18-2022 Note Formatting of this n ote might be different from the original. 2002: IHIS message sent to Dr Justyn Wen, regarding patient passing a small kidney stone, about the size of pea. notified. Stone left in strainer in pt bathroom. 0: IHIS message sent to Dr Justyn Wen, regarding pt BP 174/77. [facility] 05-18-2022 Note Formatting of this [...] outcomes by discharge/transition of care. Outcome: Ongoing [facility] 05-18-2022 Note Formatting of this [...] becomes hyponatremic, NS should instead be used. [facility] Work Phone: 05-18-2022 Note Formatting of this n ote might be different from the original. IHIS chat sent to Dr Tray Quintana, regarding pt BP 190/86. Pt complaining of pain at site of neph tube. PRN pain medication given per order parameters. Pt denies any other symptoms at this time. MD notified and aware. [facility] 05-17-2022 Note Formatting of this n ote might be different from the original. At 0900, I rounded with Dr. Gamez and Dr. Saldana. At that time I checked Mr. Styles's vital signs. His pulse oximeter was low and he was tachypneic. Verbal order at bedside to put nasal cannula on starting at 2liters oxygen and to provide incentive spirometer. [facility] Note Formatting of this n ote might be different from the original. Interventional Radiology procedure completed with IR Attending Dr. Heart / Dr. Le of percutaneous right nephrostomy tube placement transplant kidney 10.2 Fr Griffin acosta Pt tolerated procedure with moderate sedation local numbing agent . Transported to inpatient after phase I recovery. Post procedure orders in place. [facility] 05-16-2022 Note Formatting of this n ote might be different from the original. At 1530, I text chavad Kaitlynn Gomez MD that patient has only had 25ml urine output in matias this afternoon. [facility] 05-16-2022 Note Formatting of this [...] with questions. Evan Byrd MD Urology, PGY-2 #[id number] [facility] Work Phone: 05-16-2022 Note Formatting [...] care will be discharge to home. [facility] 05-16-2022 Consult note Associated Order (s): IP CONSULT TO NEPHROLOGY - TRANSPLANT (MEDICINE) I saw George Styles at the [facility] on 05/16/2022. Reason for Consultation: [...] he was given flomax and sent home. [place] better but noticed more pain and decreased [...] was 2.85, it's 5.23 today. Patient has matias with minimal output this AM. He reports not taking his IS since Thursday when he went back to the hospital. Tac level this morning 4.1. Currently with matias and no urine output. No abd pain [...] best assessment and recommendations. Maxi Pringle MD [facility] Work Phone: 05-16-2022 Consult note Associated Order (s): IP CONSULT TO NEPHROLOGY - TRANSPLANT (MEDICINE) I saw George Styles at the [facility] on 05/16/2022. Reason for Consultation: [...] pain and hematuria last Thursday, went to [facility] where he was given flomax and sent home. [place] better but noticed more pain and decreased [...] was 2.85, it's 5.23 today. Patient has matias with minimal output this AM. He reports not taking his IS since Thursday when he went back to the hospital. Tac level this morning 4.1. Currently with matias and no urine output. No abd pain [...] Maxi Pringle MD Associated attestation - Maxi Pringel MD - 05/16/2022 4:56 PM EDT Attending [...] states he went to his local ED [place] and he was put on Flomax and he did improve. Pt states last night he was unable to void with severe right sided abd pain. Pt states nausea and no vomiting or fevers. Pt states he went back to [place] ED at 0100 and they placed a matias. After matias placed, no sig urine output recorded. CT [...] orthotopic (N/A, 04/12/2020); and kidney transplant w/o [place] nephrectomy (N/A, 04/12/2020). Medications He has a [...] no penile discharge. No rashes/lesions. 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 The [place] kidneys are progressively atrophic bilaterally compared to [...] of 06/14/2020 are no longer present. The [place] distal right ureter is decompressed beyond this [...] with surgical history for renal graft and [place] right urinary drainage, as a discrete ureteroneocystostomy is not identified, and the graft may be draining via a ureteroureterostomy. Urology consultation recommended. 3. The [place] kidneys are bilaterally atrophic, with right renal sinus calcifications consistent with nonobstructing right [place] renal calculi up to 6 mm. Normal [...] Plan -No acute Urologic intervention -Agree with matias catheter for bladder decompression: recommend bladder US [...] PGY-3, Department of Urologic Surgery Pager #: [phone] Associated attestation - Ryan Yepez MD - [...] most consistent with intrinsic causes of FAYE. Matias in place. However, patient now severely oliguric and Cr jumped to 5.23 from 2.85 (baseline around 1.1-1.2) As such, placement of a nephrostomy would be warranted. Matias catheter flushed this morning and matias patent. Plan: --due to rising Cr would recommend consultation to IR for nephrostomy tube placement. Request antegrade ureteropyelogram to assess for obstruction and evaluate the course of the ureter --if antegrade ureteropyelogram still indeterminate may need repeat imaging in the future before surgical intervention --may continue flomax documented in this encounter [facility] 05-16-2022 Note Formatting of this n ote might be different from the original. No change from previous assessment. VSS/RA. Pain control with PRNs. Matias with little UOP overnight - urine pink [...] supported Trust Relationship/Rapport: care explained choices provided [facility] 05-16-2022 Note Formatting of this n ote might be different from the original. On admission to [facility], a dual RN initial assessment of skin condition was performed by Kallie Lorenzana RN and Sheri Arguelles RN. Skin Assessment: WDL Jose Score: 20 LDA Added:N Kallie Lorenzana RN [facility] 05-15-2022 Emergency department Note Report given to Kallie RN at [facility] 05-15-2022 Emergency department Note Report given to Kallie RN at [facility] Bladder scan with Dr Villatoro at bedside, 14ml noted Advised Dr Schneider concerning no urine output via matias catheter. ED Attending George Styles has a [...] stone that is obstructing. He had a matias catheter placed and transferred here for further [...] aware of only 30 ml urine via matias since arrival to room. dEPARTMENT of Emergency [...] outside hospital ED where they put a Matias and did a CT scan. It shows [...] DAY SURGERY MAIN OR KIDNEY TRANSPLANT W/O [place] NEPHRECTOMY N/A 04/12/2020 Laterality: N/A; Surgeon: LU [...] Schneider MD Resident 05/15/222030 Pt arrives from [facility] with kidney stones. Pt states he had right lower abd pain and right flank pain with blood in his urine since Thursday. Pt states he went to his local ED [place] and he was put on Flomax and he did improve. Pt states last night he was unable to void with severe right sided abd pain. Pt states nausea and no vomiting or fevers. Pt states he went back to [place] ED at 0100 and they placed a matias and CT scan completed and multiple kidney stones noted. [facility] as he had liver and kidney transplant in 03/2020. documented in this encounter [facility] 05-15-2022 History and physical note Internal Medicine Admission History & Physical Patient: George Styles, 1970, [id number] Physician: Evan Bennett MD, PGY1, Pager #[phone], GM 4 service Date of face to [...] went back to he ED [place]. Matias was placed and the patient was transferred. [...] artery disease) Cirrhosis Dialysis patient T, , Sa- Started 06/01/2018 End stage renal disease 06/01/2018 Essential hypertension, benign Hepatic encephalopathy History of blood transfusion Liver cirrhosis Past Surgical History: Procedure Laterality Date LIVER TRANSPLANT, ORTHOTOPIC N/A 04/12/2020 Laterality: N/A; Surgeon: LU Palma; Location: [facility] SAME DAY SURGERY MAIN OR KIDNEY TRANSPLANT W/O [place] NEPHRECTOMY N/A 04/12/2020 Laterality: N/A; Surgeon: LU Palma; Location: [facility] SAME DAY SURGERY MAIN OR OTHER [...] erythema: Skin: No jaundice or rash Neuro: kayak maker 3-7, 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 Strength [...] dilation of the calyces may represent narrowing/partial [id number] ofthe ureter and mild hydronephrosis or sequela [...] Lo - Urology following no acute intervention. Matias placed before transfer - transplant neph consult [...] prophylaxis with heparin Disposition: GM 4 for goss control and infectious workup Code status is [...] FAYE - IS dosing per neph Fred Niki, MD Division of Hospital Medicine [phone] [facility] Work Phone: 05-15-2022 History and physical note Internal Medicine Admission History & Physical Patient: George Styles, 1970, [id number] Physician: Evan Bennett MD, PGY1, Pager #[phone], GM 4 service Date of face to [...] went back to he ED [place]. Matias was placed and the patient was transferred. [...] 04/12/2020 Laterality: N/A; Surgeon: LU Palma; Location: [facility] SAME DAY SURGERY MAIN OR KIDNEY TRANSPLANT W/O [place] NEPHRECTOMY N/A 04/12/2020 Laterality: N/A; Surgeon: LU Palma; Location: [facility] SAME DAY SURGERY MAIN OR OTHER [...] erythema: Skin: No jaundice or rash Neuro: kayak maker 3-7, 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 Strength [...] dilation of the calyces may represent narrowing/partial [id number] ofthe ureter and mild hydronephrosis or sequela [...] Lo - Urology following no acute intervention. Matias placed before transfer - transplant neph consult [...] prophylaxis with heparin Disposition: GM 4 for goss control and infectious workup Code status is [...] Medicine [id number] documented in this encounter [facility] 05-15-2022 Emergency department Note Bladder scan with Dr Villatoro at bedside, 14ml noted [facility] 05-15-2022 Consult note Associated Order [...] states he went to his local ED [place] and he was put on Flomax and he did improve. Pt states last night he was unable to void with severe right sided abd pain. Pt states nausea and no vomiting or fevers. Pt states he went back to [place] ED at 0100 and they placed a matias. After matias placed, no sig urine output recorded. CT [...] orthotopic (N/A, 04/12/2020); and kidney transplant w/o [place] nephrectomy (N/A, 04/12/2020). Medications He has a [...] no penile discharge. No rashes/lesions. 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 The [place] kidneys are progressively atrophic bilaterally compared to [...] of 06/14/2020 are no longer present. The [place] distal right ureter is decompressed beyond this [...] with surgical history for renal graft and [place] right urinary drainage, as a discrete ureteroneocystostomy is not identified, and the graft may be draining via a ureteroureterostomy. Urology consultation recommended. 3. The [place] kidneys are bilaterally atrophic, with right renal sinus calcifications consistent with nonobstructing right [place] renal calculi up to 6 mm. Normal [...] Plan -No acute Urologic intervention -Agree with matias catheter for bladder decompression: recommend bladder US [...] PGY-3, Department of Urologic Surgery Pager #: [phone] Associated attestation - Ryan Yepez MD - [...] most consistent with intrinsic causes of FAYE. Matias in place. However, patient now severely oliguric and Cr jumped to 5.23 from 2.85 (baseline around 1.1-1.2) As such, placement of a nephrostomy would be warranted. Matias catheter flushed this morning and matias patent. Plan: --due to rising Cr would recommend consultation to IR for nephrostomy tube placement. Request antegrade ureteropyelogram to assess for obstruction and evaluate the course of the ureter --if antegrade ureteropyelogram still indeterminate may need repeat imaging in the future before surgical intervention --may continue [employer] [facility] Work Phone: 05-15-2022 Emergency department Note Advised Dr Schneider concerning no urine output via matias catheter. [facility] Physician Emergency department Note ED [...] stone that is obstructing. He had a amtias catheter placed and transferred here for further [...] plan of care. Gian Villatoro MD 05/15/222003 [facility] Work Phone: 05-15-[address] Schneider made aware of only 30 ml urine via matias since arrival to room. [facility] 05-15-2022 Physician Emergency department Note [...] outside hospital ED where they put a Matias and did a CT scan. It shows [...] DAY SURGERY MAIN OR KIDNEY TRANSPLANT W/O [place] NEPHRECTOMY N/A 04/12/2020 Laterality: N/A; Surgeon: LU [...] any incorrections. Matt Schneider MD Resident 05/15/222030 [facility] Work Phone: 05-15-2022 Emergency department Note Pt arrives from [facility] with kidney stones. Pt states he had right lower abd pain and right flank pain with blood in his urine since Thursday. Pt states he went to his local ED [place] and he was put on Flomax and he did improve. Pt states last night he was unable to void with severe right sided abd pain. Pt states nausea and no vomiting or fevers. Pt states he went back to [place] ED at 0100 and they placed a matias and CT scan completed and multiple kidney stones noted. [facility] ED as he had liver and kidney transplant in 03/2020. [facility] 03-14-2022 History of Present illness [...] Required: No Mailing/Pickup Date: 03/17/2022 Shipping Address: [address] [place] [address] [address] Contact Info: Specialty ([place]) [phone] Jakob [phone] [facility] [phone] David [phone] Bedside Delivery ([facility]) [phone] documented in this encounter [facility] 06-14-2021 History of Present illness [...] 05/16/22 Goal Progress: Satisfactory Contact Info: Specialty ([place]) [phone] [facility] [phone] [facility] [phone] [facility] [phone] Bedside Delivery ([facility]) [phone] [facility] OUTREACH: Call Information: Date [...] Location: Home Signature Required: Yes Shipping Address: [address] [place], [place] [id number] Contact Info: Specialty ([place]) [phone] Jakob [phone] [facility] [phone] [facility] [phone] Bedside Delivery ([facility]) [phone] documented in this encounter [facility] Evaluation note Diagnosis FAYE (acute kidney injury)- Primary Acute kidney failure, unspecified Hydronephrosis due to obstruction of ureteral orifice Hydronephrosis due to obstruction of ureteral orifice FAYE (acute kidney injury) Acute kidney failure, unspecified [facility] Follow-up exam- Primary Unspecified follow-up examination [facility] Diagnosis Immunosuppressed status- Primary Unspecified disorder of immune mechanism Kidney replaced by transplant Liver replaced by transplant Abnormal blood chemistry Other abnormal blood chemistry High risk medication use Encounter for long-term (current) use of other medications Aftercare following organ transplant Liver transplant recipient [facility] Diagnosis Attention to nephrostomy- Primary [facility] Diagnosis Other hydronephrosis- Primary [facility] Diagnosis FAYE (acute kidney injury) Acute kidney failure, unspecified [facility] Diagnosis Other hydronephrosis- Primary -donor kidney transplant recipient Kidney replaced by transplant [facility] Diagnosis Other hydronephrosis [facility] Diagnosis 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) Encounter for screening for malignant neoplasm of prostate Special screening for malignant neoplasm of prostate [facility] Diagnosis Abnormal blood chemistry- Primary Other abnormal blood chemistry Liver transplant recipient Kidney replaced by transplant Immunosuppressed status Unspecified disorder of immune mechanism Aftercare following organ transplant [facility] Diagnosis Kidney replaced by transplant- Primary [facility] Diagnosis Immunosuppressed status- Primary Unspecified disorder of immune mechanism Kidney replaced by transplant Aftercare following organ transplant High risk medication use Encounter for long-term (current) use of other medications Other general symptoms and signs Abnormal blood chemistry Other abnormal blood chemistry Hypertension secondary to other renal disorders [facility] Diagnosis Histoplasmosis- Primary Histoplasmosis, [...] Fever Fever, unspecified [facility] Diagnosis Bilateral lower extremity edema- Primary 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) Atherosclerosis 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) Atherosclerosis of aorta Obesity (BMI 30-39.9) DARLENE (obstructive sleep apnea) Obstructive sleep apnea (adult) (pediatric) Tremor Abnormal involuntary movements Immunocompromised (CMS/HCC) Unspecified immunity deficiency Primary hypertension (CMS/HCC) Unspecified essential hypertension Shortness of breath documented in this encounter [facility] Healthcare[facility]* Diagnosis Pleural effusion on right- [...] specified pre-operative examination [facility] Consultation (Routine) - New Request Specialty Diagnoses / Procedures Referred By Deni edwards Referred To Contact Interventional Radiology Diagnoses Hydronephrosis due to obstruction of ureteral orifice Daya Saldana MD [address] [place] [address] Referral ID Status Reason Start Date Expiration Date V isits Requested Visits Authorized [id number] New Request 05/18/2022 06/12/2023 1 1 * Radiology (Emergency) - New Request Specialty Diagnoses / Procedures Referred By Contac t Referred To Contact Procedures US RENAL TRANSPLANT SCAN Daya Saldana MD [address] [place] [address] Referral ID Status Reason Start Date Expiration Date V isits Requested Visits Authorized [id number] New Request 05/16/2022 06/10/2023 1 1 * Consultation (Routine) - New Request Specialty Diagnoses / Procedures Referred By Contac t Referred To Contact Urology Diagnoses FAYE (acute kidney injury) Ryan Yepez MD [address] [place] [address] [address] [place] [address] Referral ID Status Reason Start Date Expiration Date V isits Requested Visits Authorized [id number] New Request 05/16/2022 06/10/2023 1 1 * MRI/CAT Scan (Routine) - New Request Specialty Diagnoses / Procedures Referred By Contac t Referred To Contact Diagnoses FAYE (acute kidney injury) Procedures CT ABDOMEN/PELVIS WITHOUT CONTRAST CHG CT SCAN,ABDOMENT AND PELVIS,W/O CONTRAST Ryan Yepez MD [address] [place] [address] [address] [place] [address] Referral ID Status Reason Start Date Expiration Date V isits Requested Visits Authorized [id number] New Request 05/16/2022 06/10/2023 1 1 * (Routine) - Pending Review Specialty Diagnoses / Procedures Referred By Contac t Referred To Contact Procedures PLATELET MONITORING PER PROTOCOL Daya Saldana MD [address] [place] [address] Referral ID Status Reason Start Date Expiration Date V isits Requested Visits Authorized [id number] Pending Review 05/15/2022 06/09/2023 1 1 * (Routine) - Pending Review Specialty Diagnoses / Procedures Referred By Contac t Referred To Contact Procedures DVT/VTE RISK ASSESSMENT Daya Saldana MD [address] [place] [address] Referral ID Status Reason Start Date Expiration Date V isits Requested Visits Authorized [id number] Pending Review 05/15/2022 06/09/2023 1 1 * (Routine) Specialty Diagnoses / Procedures Referred By Contac t Referred To Contact Evan Bennett MD [address] [place] [phone] Referral ID Status Reason Start Date Expiration Date Visits Re quested Visits Authorized * (Routine) Specialty Diagnoses / Procedures Referred By Contac t Referred To Contact Evan Bennett MD [address] [place] [phone] Referral ID Status Reason Start Date Expiration Date Visits Re quested Visits Authorized [facility] for referral (narrative)* Consultation (Routine) - New Request Specialty Diagnoses / Procedures Referred By Contac t Referred To Contact Sleep Medicine Diagnoses Kevin Conroy MD [address], [place] [address] Referral ID Status Reason Start Date Expiration Date V isits Requested Visits Authorized [id number] New Request 09/10/2023 10/04/2024 1 1 * MRI/CAT Scan (Routine) - New Request Specialty Diagnoses / Procedures Referred By Contac t Referred To Contact Diagnoses Histoplasmosis Procedures CT CHEST WITHOUT CONTRAST CHG DIAGNOSTIC COMPUTED TOMOGRAPHY THORAX W/O CNTRST Kevin Prince MD [address] [place] [address] Referral ID Status Reason Start Date Expiration Date V isits Requested Visits Authorized [id number] New Request 09/10/2023 10/04/2024 1 1 * Radiology (Routine) - New Request Specialty Diagnoses / Procedures Referred By Contac t Referred To Contact Procedures US RENAL TRANSPLANT SCAN Steve Latham MBBS [address], [place] [address] Referral ID Status Reason Start Date Expiration Date V isits Requested Visits Authorized [id number] New Request 08/29/2023 09/22/2024 1 1 * (Routine) - New Request Specialty Diagnoses / Procedures Referred By Contac t Referred To Contact Procedures PLATELET MONITORING PER PROTOCOL Steve Latham MBBS [address], [place] [address] Referral ID Status Reason Start Date Expiration Date V isits Requested Visits Authorized [id number] New Request 08/28/2023 09/21/2024 1 1 * (Routine) - New Request Specialty Diagnoses / Procedures Referred By Contac t Referred To Contact Procedures DVT/VTE RISK ASSESSMENT Steve Latham MBBS [address] [place] [address] Referral ID Status Reason Start Date Expiration Date V isits Requested Visits Authorized [id number] New Request 08/28/2023 09/21/2024 1 1 [facility] Instructions * Patient Instructions - Christin Elizabeth APRN-CNP - 10/19/2018 9:21 AM EST You should take an extra dose of the lactulose as needed so that you are having 3-4 bowel movementsdaily. You should start the chemical dependency counseling as soon as possible. If you have questions, call the transplant oncology social worker Fidelina Pierson. in this encounter* Patient Instructions - Sophie Cary, SAIM - 10/12/2018 11:09 AM EST You have been seen in the pre-transplant evaluation clinic by Dr. Restrepo and Sophie Cary. Sophie Cary is your pre-distance learning program coordinator she can be reached at [phone] at any time for questions during the pre-transplant process. Your evaluation is complete pendin. Abdominal ultrasound. 2. 6 minute walk test. 3. Cardiology evaluation. Additionally, your wax pumper will recommend testing to screen for coronary [...] after you have satisfied requirements dictated by [employer] company. Once your testing is complete, we [...] ___ Other Name MRN * Christin Elizabeth, HEADMASTER/MISTRESS-PHYSICIAN GENERAL PRACTICE - 10/19/2018 9:00 AM EST Formatting of [...] was immediately prior to hospital admission in [place] for ACLF. Hospital course notable for ARF [...] (human immunodeficiency virus infection); Hyperlipidemia; Hyperthyroidism; Hypothyroidism; GA (myocardial infarction); Migraine; DARLENE (obstructive sleep apnea); [...] 3. FU 12 weeks. in this encounter* Fidelina Pierson LISWS - 10/12/2018 10:00 AM EST Formatting of this note may be different from the original. Transplant Recipient Psychosocial Evaluation Demographics: Patient is a 48 y.o., White, Single, male, who presented for a liver and kidney transplant evaluation. Pt was AOx3. Transplant Curtain Stretcher Assembler role/function was explained and reviewed. The patient was informed that the results of this assessment will be shared with the referring provider and the transplant team. The patient verbalized understanding of this information. The [facility] psychosocial assessment consent form has been explained to patient and has been signed. Pt is completing this evaluation with brother (David) in the Outpatient setting. SWK educated pt on the benefits of completing/filing advanced directives and resources were offered. Pt identifies with [place]UR[place] bahai. Pt confirms being a [place] Citizen. Pt.'s primary language is Kittitian. Pt confirms the ability to read,write, and understand [place]. Pt denies potential donors. Donor cards and [...] has valid license, does not regularly drive (PHYSICIAN GENERAL PRACTICE recommends that he not to drive). He [...] organ related disease etoh cirrohosis April in [facility] for thirty days. Pt reports [...] as referred him to pre distance learning program coordinator. Pt and support demonstrated moderate understanding [...] brother David is a self employed contractor [employer]. Additional support includes his other brother Tyshawn and his Mary live fifteen minutes away. 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 He confirms being comfortable asking for help. [...] in 2010, he was employed by the [employer]. He has access to [employer] payment ([employer] starts in November) in regards to financial means pre/ post-transplant. Pt confirms (meeting bills currently, ) being able to meet daily needs. Patient's brother asking for additional information on community resources, food stamps and [place]. Refer him to pt.'s dialysis center and the [facility]. Hereports access to Medicaid. Pt. denies [...] court ordered treatment after a DUI charge [facility] in [place], court ordered treatment in 2001 and in [...] by patient from his primary medical provider- PHYSICIAN GENERAL PRACTICE patient was noted as attending an alcohol [...] new visit Date of service: 10/12/2018 -Referring plant controller for today's consult: -Primary Care Provider: Zuly [...] EST Timed up and go 9.9 seconds Polymerization Oven Operator Left 52.8 pounds Right 44.9 pounds Waist circ 38.5 inches * Sophie Cary, RN - 10/12/2018 10:00 AM EST Formatting of this note may be different from the original. Patient George Styles ([id number]), accompanied by his brother, was seen on [...] any further questions. Sophie GUERINN, RN Liver Building Construction Professor Etiology: ETOH HCC: No ETOH: Yes Last [...] Yovani Orr MD [address] [address] Status Reason Specialty Diagnoses / Procedures Referred By Contact Referred To Contact New Request Diagnoses Cirrhosis of liver with ascites, unspecified hepatic cirrhosis type Procedures US ABDOMEN RUQ/LIVER/GB Yovani Orr MD [address] [address] Specialty Diagnoses / Procedures Referred By Contac t Referred To Contact Diagnoses FAYE (acute kidney injury) Procedures CT ABDOMEN/PELVIS WITHOUT CONTRAST CHG CT SCAN,ABDOMENT AND PELVIS,W/O CONTRAST [place] [address] [place] [address] Referral ID Status Reason Start Date Expiration Date V isits Requested Visits Authorized [id number] Pending Review 05/16/2022 06/10/2023 1 1 Specialty Diagnoses / Procedures Referred By Contac t Referred To Contact Diagnoses Other hydronephrosis Procedures FLUORO IMAGING FOR UROLOGY Ryan Yepez MD [address] [facility] [address] [place] [address] Referral ID Status Reason Start Date Expiration Date V isits Requested Visits Authorized [id number] New Request 07/07/2022 08/01/2023 1 1 Specialty Diagnoses / Procedures Referred By Contac t Referred To Contact Procedures DIRECT ADMIT REQUEST Steve Latham MBBS [address] [place] [address] Referral ID Status Reason Start Date Expiration Date V isits Requested Visits Authorized [id number] New Request 08/28/2023 09/21/2024 1 1 Specialty Diagnoses / Procedures Referred By Contac t Referred To Contact Radiology Diagnoses DARLENE (obstructive sleep apnea) Primary hypertension (CMS/HCC) Bilateral lower extremity edema Shortness of breath Procedures Echocardiogram 2D complete Zuly Bruno NP [address] [place] [address] Referral ID Status Reason Start Date Expiration Date Visits Requested Visits Authorized [id number] Incomplete Perform Procedure 01/06/2024 07/04/2024 1 1 Specialty Diagnoses / Procedures Referred By Contac t Referred To Contact Procedures US IMAGING REGIONAL ANESTHESIA Kehinde Gutierrez MD [address] [place] [address] Referral ID Status Reason Start Date Expiration Date V isits Requested Visits Authorized [id number] New Request 01/22/2024 02/15/2025 1 1 Specialty Diagnoses / Procedures Referred By Contac t Referred To Contact Cardiovascular Medicine Diagnoses Heart failure, diastolic, acute Kelvin Pacheco MD, MBBS [address] [place] [address] Referral ID Status Reason Start Date Expiration Date V isits Requested Visits Authorized [id number] New Request 01/20/2024 02/13/2025 1 1 Specialty Diagnoses / Procedures Referred By Contac t Referred To Contact Procedures US ABDOMEN LIVER DOPPLER US ABDOMEN LIVER TRANSPLANT DOPPLER Timothy Joseph MD [address] [address] [place] [address] Referral ID Status Reason Start Date Expiration Date V isits Requested Visits Authorized [id number] New Request 01/16/2024 02/09/2025 1 1 Specialty Diagnoses / Procedures Referred By Contac t Referred To Contact Procedures DVT/VTE RISK ASSESSMENT Kelvin Pacheco MD, MBBS [address] [place], [place] [address] Referral ID Status Reason Start Date Expiration Date V isits Requested Visits Authorized [id number] New Request 01/16/2024 02/09/2025 1 1 Specialty Diagnoses / Procedures Referred By Contac t Referred To Contact Procedures PLATELET MONITORING PER PROTOCOL Kelvin Pacheco MD, MBBS [address] [place] [address] Referral ID Status Reason Start Date Expiration Date V isits Requested Visits Authorized [id number] New Request 01/16/2024 02/09/2025 1 1 Referral ID Status Reason Start Date Expiration Date V isits Requested Visits Authorized [id number] New Request 01/16/2024 02/09/2025 1 1 Specialty Diagnoses / Procedures Referred By Contac t Referred To Contact Procedures ECG Kelvin Pacheco MD, MBBS [address] [place] [address] Referral ID Status Reason Start Date Expiration Date V isits Requested Visits Authorized [id number] New Request 01/16/2024 02/09/2025 1 1 Advance Directives No Advanced Directives Records FoundDocuments on File Type Date Recorded 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 Advance Directives and Living Will Power of Wound/Ostomy Clinical Nurse Specialist Latest Code Status on File Code Status [...] Yovani Orr MD [address] [address] Status Reason Specialty Diagnoses / Procedures Referre d By Contact Referred To Contact Denied Diagnoses Alcoholic cirrhosis, unspecified whether ascites present Pre-transplant evaluation for liver transplant Procedures MRI ABDOMEN WITH CONTRAST [place] MRI, ABDOMEN W/CONTRAST Yovani Orr MD [address] [address] Reason Comments Liver Recipient Evaluation Status Reason Specialty Diagnoses / Procedures Referred By Contact Referred To Contact New Request Transplant / Transplant Surgery Procedures PRE NEW PATIENT Yovani Orr MD [address] [address] Alfredito Restrepo MD [address] [place] [address] Reason Comments Reschedule Reason Comments Outside Medical Records Request Reason Comments Social Work Follow-up Reason Comments Kidney Stone Specialty Diagnoses / Procedures Referred By Deni edwards Referred To Contact Diagnoses Obstructing kidney stone, s/p kidney transplant 2019 Daya Saldana MD [address] [place] [address] [facility] [address] [place] [address] Referral ID Status Reason Start Date Expiration Date Visits Re quested Visits Authorized [id number] 1 1 Reason Comments Follow-up Reason Comments Kidney Recipient Follow-up Liver Recipient Follow-up Reason Comments Consult Reason Comments New Patient Hospital follow up Specialty Diagnoses / Procedures Referred By Deni edwards Referred To Contact Urology Diagnoses hosp fu with [address] prior Procedures NEW TO DOC/RET PATIENT Zuly Bruno, PHYSICIAN GENERAL PRACTICE [address] [place] [address] Ryan Yepez MD [address] [facility] [address] [place] [address] Referral ID Status Reason Start Date Expiration Date Visits Re quested Visits Authorized [id number] Closed 06/27/2022 07/22/2023 1 1 Specialty Diagnoses / Procedures Referred By Contac t Referred To Contact Diagnoses FAYE (acute kidney injury) Procedures CT ABDOMEN/PELVIS WITHOUT CONTRAST CHG CT SCAN,ABDOMENT AND PELVIS,W/O CONTRAST Central Scheduling [address] [place] [address] Referral ID Status Reason Start Date Expiration Date V isits Requested Visits Authorized [id number] Pending Review 05/16/2022 06/10/2023 1 1 Reason Comments Follow-up Specialty Diagnoses / Procedures Referred By Contac t Referred To Contact Urology Diagnoses 1 week fu post NT clamp Procedures RETURN PATIENT Zuly Bruno, PHYSICIAN GENERAL PRACTICE [address] [place] [address] Ryan Yepez MD [address] [facility] [address] [place] [address] Referral ID Status Reason Start Date Expiration Date Visits Requested Visits Authorized [id number] Authorized - 07/07/2022 08/01/2023 2 2 Specialty Diagnoses / Procedures Referred By Contac t Referred To Contact Diagnoses Other hydronephrosis Procedures FLUORO IMAGING FOR UROLOGY Ryan Yepez MD [address] [facility] [address] [place] [address] Referral ID Status Reason Start Date Expiration Date V isits Requested Visits Authorized [id number] New Request 07/07/2022 08/01/2023 1 1 Specialty Diagnoses / Procedures Referred By Contac t Referred To Contact Urology Diagnoses 1 week fu post NT clamp Procedures RETURN PATIENT Zuly Bruno, PHYSICIAN GENERAL PRACTICE [address] [place] [address] Ryan Yepez MD [address] [facility] [address] [place] [address] Referral ID Status Reason Start Date Expiration Date Visits Re quested Visits Authorized [id number] Closed 07/07/2022 08/01/2023 2 2 Reason Comments Liver Recipient Follow-up Reason Comments Kidney Recipient Follow-up Reason Comments Kidney Recipient Follow-up Specialty Diagnoses / Procedures Referred By Deni edwards Referred To Contact Diagnoses Kidney replaced by transplant Steve Latham MBBS [address] [place] [address] [facility] [address] [place] [address] Referral ID Status Reason Start Date Expiration Date Visits Re quested Visits Authorized [id number] 1 1 Specialty Diagnoses / Procedures Referred By Deni t Referred To Contact Diagnoses Pleural effusion on right PNEUMONIA- HX LIVER AND KIDNEY TRANSPLANT Kevin Prince MD [address] [place] [address] [facility] [address] [place] [address] Referral ID Status Reason Start Date Expiration Date Visits Re quested Visits Authorized [id number] 1 1 (unrecognized sect ion and content) No Status Records FoundNo Status Records FoundNo Status Records FoundNo Status Records FoundNo Status Records FoundNo Status Records Found INFORMATION SOURCE (unrecogn ized section and content) DATE CREATED AUTHOR 01/07/2020 [facility] DATE CREATED AUTHOR AUTHOR'S ORGANIZ ATION 01/27/2021 [facility] DATE CREATED AUTHOR AUTHOR'S ORGANIZ ATION 04/13/2023 [facility] DATE CREATED AUTHOR AUTHOR'S ORGANIZ ATION 05/11/2023 [facility] DATE CREATED AUTHOR AUTHOR'S ORGANIZ ATION 02/26/2024 [facility] dical Specialists EPIC DATE CREATED AUTHOR AUTHOR'S ORGANIZ ATION 02/27/2024 [facility] Care Teams (unrecognized sec tion and content) 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 Specialty Start Date End Date Zuly Bruno, ROB PCP - General 07/19/18 Comfort Rivera, [facility] [address] [facility] [address] [place] [address] Pharmacist Pharmacist 05/16/20 Angel Carpio [facility],PharmD Pharmacist Pharmacist 05/16/20 Te Leigh [facility],PharmD Pharmacist Pharmacist 01/09/21 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 Specialty Start Date End Date Zuly Bruno CNP PCP - General 07/19/18 Comfort Rivera, [facility] [address] [facility] [address] [place] [address] Pharmacist Pharmacist 05/16/20 Angel Carpio [facility],PharmD Pharmacist Pharmacist 05/16/20 Te Leigh [facility],PharmD Pharmacist Pharmacist 01/09/21 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 Specialty Start Date End Date Zuly Bruno CNP PCP - General 07/19/18 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 Specialty Start Date End Date Zuly Bruno CNP PCP - General 07/19/18 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 Specialty Start Date End Date Zuly Bruno CNP PCP - General 07/19/18 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 Specialty Start Date End Date Zuly Bruno CNP PCP - General 07/19/18 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 Specialty Start Date End Date Zuly Bruno CNP PCP - General 07/19/18 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 Specialty Start Date End Date Zuly Bruno CNP PCP - General 07/19/18 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 Specialty Start Date End Date Zuly Bruno CNP PCP - General 07/19/18 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 Specialty Start Date End Date Zuly Bruno CNP PCP - General 07/19/18 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 Specialty Start Date End Date Zuly Bruno CNP PCP - General 07/19/18 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 Specialty Start Date End Date BrianlatishaZuly tipton CNP PCP - General 07/19/18 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 Specialty Start Date End Date Kristopherlydiajose eZuly CNP PCP - General 07/19/18 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 Specialty Start Date End Date Zuly BrunoROB PCP - General 07/19/18 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 Specialty Start Date End Date Kristopherlydiajose eZuly CNP PCP - General 07/19/18 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 Specialty Start Date End Date Kristopherlydiajose e ZulyROB PCP - General 07/19/18 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 Specialty Start Date End Date Kristopherlydiajose e Zuly ROB PCP - General 07/19/18 [place] [address] [place] [address] Infectious Disease Infectious Disease 09/09/23 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 Specialty Start Date End Date Zuly Bruno CNP PCP - General 07/19/18 Eavn White DO [address] [place] [address] Infectious Disease Infectious Disease 09/09/23 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 Specialty Start Date End Date Zuly Bruno CNP PCP - General 07/19/18 Evan White DO [address] [place] [address] Infectious Disease Infectious Disease 09/09/23 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 Specialty Start Date End Date Momo Verdugo MD PCP - General Family Medicine 05/21/23 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 Specialty Start Date End Date Moom Verdugo MD PCP - General Family Medicine 05/21/23 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 Specialty Start Date End Date Momo Verdugo MD PCP - General Family Medicine 05/21/23 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 Specialty Start Date End Date Zuly Bruno CNP PCP - General 07/19/18 Evan White DO [address] [place], [place] [id number] Infectious Disease Infectious Disease 09/09/23 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 Specialty Start Date End Date Zuly Bruno CNP PCP - General 07/19/18 Evan White DO [address] [place] [id number] Infectious Disease Infectious Disease 09/09/23 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 Specialty Start Date End Date Kristopherlydialatishasaeed ZulyROB feliz PCP - General 07/19/18 Evan White DO [address] [place] [id number] Infectious Disease Infectious Disease 09/09/23 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 Specialty Start Date End Date Zuly Bruno CNP PCP - General 07/19/18 Evan White DO [address] [place] [id number] Infectious Disease Infectious Disease 09/09/23 Scheduled Active and Recently Administ ered Medications (unrecognized section and content) Medication Order 05/18/2022 05/19/2022 05/20/2022 allopurinol (ZYLOPRIM) tablet 100 mg 100 mg, Oral, DAILY, First dose (after last modification) on Thu05/17/22 at 0900, Until Discontinued 08 (Given - Provider: Mel Hampton RN) 08 (Given - Provider: Josey Braun, SAMI) 0931 (Given - Provider: Leon Cook, SAMI) amLODIPine (NORVASC) tablet 5 mg 5 mg, Oral, DAILY, First dose on Thu05/16/22 at 0900, Until Discontinued 0807 (Given - Provider: Mel Hampton RN) 08 (Given - Provider: Josey Braun, SAMI) 0932 (Given - Provider: Leon Cook RN) aspirin chewable tablet 81 mg 81 mg, Oral, DAILY, First dose on Thu05/16/22 at 0900, Until Discontinued 806 (Given - Provider: Mel Hampton RN) 804 (Given - Provider: Josey Braun RN) 929 (Given - Provider: Leon Cook RN) atorvastatin [...] Braun RN) 931 (Given - Provider: Leon Cook RN) gabapentin [...] Braun RN)1754 (Given - Provider: Josey Braun RN)2058 (Given [...] Leon Cook RN)1035 (Stopped - Provider: Leon Cook, RN)1322 [...] today) 0931 (Given - Provider: Leon Cook RN)2099 (Canceled Entry - Provider: System Discharge - [...] swallowed separately. 175 (Given - Provider: Josey Braun, SAMI) senna (SENOKOT) tablet 8.6 mg 8.6 mg, [...] release product. Do not chew or crush 08 (Given - Provider: Mel Hampton RN) 08 (Given - Provider: Josey Braun RN) 09 (Given - Provider: Leon Cook RN) Continuous Medication Order 05/18/2022 05/19/2022 05/20/2022 lactated ringers IV solution (CANCELED) Intravenous, at 100 mL/hr, CONTINUOUS, Starting on 05/18/22 at 1230, Until 05/18/22 at 1645 1557 ($$New Bag$$ - Provider: Mel Hampton RN)1558 (Rate/Dose Verify - Provider: Carolyn Isaac RN)1737 (Paused - Provider: Carolyn Isaac RN)1807 (Restarted - Provider: Carolyn Isaac RN)1822 (Paused - Provider: Carolyn Isaac RN)182 (Restarted - Provider: Carolyn Isaac RN)192 (Rate/Dose Verify - Provider: Carolyn Isaac RN) 205 (Stopped - Provider: Carolyn Isaac RN) PRN Medication Order 05/18/2022 05/19/2022 05/20/2022 acetaminophen (TYLENOL) tablet 650 mg 650 mg, Oral, EVERY 6 HOURS NEEDED, Starting on Marta 05/15/22 at 2311, Until 05/20/22 at 2110, Mild Pain, Moderate Pain, Maximum [...] RN) 0825 (Given - Provider: Josey Braun RN)2105 (Given - Provider: Carolyn Isaac RN) oxyCODONE HCl (ROXICODONE) tablet 10 mg(Linked Group 2) 10 mg, Oral, EVERY 4 HOURS NEEDED, Starting on Thu05/16/22 at 0614, Until Thu05/20/22 at 2110, Severe Pain 0338 (Given - Provider: Carolyn Isaac, SAMI)0806 (Given - Provider: Mel Hampton RN) 0825 (See Alternative - Provider: Josey Braun RN)210 (See Alternative - Provider: aCrolyn Isaac RN) sodium chloride 0.9% IV solution [...] Leon Cook RN)1231 (Paused - Provider: Leon Coko RN)1334 (Restarted - Provider: Leon Cook RN)1336 [...] on Thu05/16/22 at 0614, Until Thu05/20/22 at 211, Severe Pain, Moderate Pain Scheduled Medication Order [...] Provider: Terra Heart RN - Reason: Patient/family refused)2116 (Not Given - Provider: Carolyn Plasencia RN [...] Girish Nunez RN)1805 (Given - Provider: Terra Heart, SAMI) 0610 (Given - Provider: Carolyn Plasencia RN) magnesium oxide (MAG-OX) tablet 800 mg 800 mg, Oral, DAILY, First dose (after last modification) on Thu09/08/23 at 0900, Until Discontinued 0753 (Given - Provider: Aixa Holden RN) 0829 (Given - Provider: Terra Heart RN) 0957 (Given - Provider: Cheyanne Mcdonough RN) Magnesium sulfate 4 g in sterile [...] Gudino RN) 0841 (Given - Provider: Terra Heart, SAMI)1053 (MAR Hold - Provider: Automatic Transfer - [...] dose on 01/16/24 at 0900, Until Discontinued 08 (Given - Provider: Erica Gudino RN)161 (Given - Provider: Dillon Lyman RN) 0841 [...] Discontinued 0846 (Given - Provider: Terra Heart RN)1053 (JAN [...] allow absorption. 0842 (Given - Provider: Erica Gudino RN) 1053 (MAR Hold - Provider: Automatic Transfer - Reason: Transfer to a Procedural area)1414 (MAR Unhold - Provider: Automatic Transfer) 0923 (Given - Provider: Terra Heart RN) Tamsulosin HCl (FLOMAX) capsule 0.4 mg 0.4 mg, Oral, DAILY, First dose on 01/16/24 at 0900, Until Discontinued, Slow release product. Do not chew or crush 0842 (Given - Provider: Erica Gudino RN) 0841 (Given - Provider: Terra Heart RN)1053 ([facility] Hold - Provider: Automatic Transfer - Reason: Transfer to a Procedural area)1414 ([facility] Unhold - Provider: Automatic Transfer) 0920 (Given [...] 0841 (Given - Provider: Terra Heart RN)1053 ([facility] Hold - Provider: Automatic Transfer - Reason: Transfer to a Procedural area)1414 ([facility] Unhold - Provider: Automatic Transfer) 0920 (Given [...] from all sources in 24 hours. 1053 ([facility] Hold - Provider: Automatic Transfer - Reason: Transfer to a Procedural area)1414 ([facility] Unhold - Provider: Automatic Transfer)1806 (Given - [...] 200-200 mg and Simethicone 20 mg) 1053 ([facility] Hold - Provider: Automatic Transfer - Reason: Transfer to a Procedural area)1414 ([facility] Unhold - Provider: Automatic Transfer) guaiFENesin (ROBITUSSIN) oral solution 400 mg 400 mg, Oral, EVERY 6 HOURS NEEDED, Starting on 01/16/24 at 0202, Until 01/23/24 at 1752, Cough, Congestion 1053 ([facility] Hold - Provider: Automatic Transfer - Reason: Transfer to a Procedural area)1414 ([facility] Unhold - Provider: Automatic Transfer) HYDROmorphone (DILAUDID) [...] 0016, Until 01/23/24 at 1752, Insomnia 1053 ([facility] Hold - Provider: Automatic Transfer - Reason: Transfer to a Procedural area)1414 ([facility] Unhold - Provider: Automatic Transfer)2355 (Given - Provider: Tati Ahmadi, SAMI) Ondansetron (ZOFRAN) tablet 4 mg(Linked Group 1) 4 mg, Oral, EVERY 6 HOURS NEEDED, Starting on 01/16/24 at 0202, Until 01/23/24 at 1752, Nausea / Vomiting, 1st line for Nausea/Vomiting 1053 ([facility] Hold - Provider: Automatic Transfer - Reason: Transfer to a Procedural area)1414 ([facility] Unhold - Provider: Automatic Transfer)1809 (See Alternative - Provider: Terra Heart RN) 0430 (See Alternative - Provider: Tati Ahmadi, SAMI)1415 (Given - Provider: Terra Heart, SAMI) Ondansetron 4mg/2ml (ZOFRAN) injection 4 mg(Linked Group 1) 4 mg, Intravenous, EVERY 6 HOURS NEEDED, Starting on 01/16/24 at 0202, Until 01/23/24 at 1752, Nausea / Vomiting, 1st line for Nausea/Vomiting 1053 ([facility] Hold - Provider: Automatic Transfer - Reason: Transfer to a Procedural area)1414 (MAR Unhold - Provider: Automatic Transfer)1809 (Given - Provider: Terra Heart, SAMI) 0430 (Given - Provider: Tati Ahmadi, SAMI)1415 (See Alternative - Provider: Terra Heart RN) oxyCODONE (ROXICODONE) tablet 5 mg 5 mg, Oral, EVERY 4 HOURS NEEDED, Starting on 01/22/24 at 1322, Until 01/23/24 at 1752, Moderate Pain, Severe Pain 1441 (Given - Provider: Terra Heart RN)1926 (Given - Provider: Terra Heart, SAMI) 0427 (Given - Provider: Tati Ahmadi, SAMI)0917 (Given - Provider: Terra Heart, SAMI)1312 (Given - Provider: Terra Heart, SAMI) Polyethylene glycol (MIRALAX) packet 17 g 17 g, Oral, DAILY NEEDED, Starting on 01/16/24 at 0202, Until 01/23/24 at 1752, Constipation 1st Line 1053 ([facility] Hold - Provider: Automatic Transfer - Reason: Transfer to a Procedural area)1414 (MAR Unhold - Provider: Automatic Transfer) Prochlorperazine (COMPAZINE) injection 10 mg 10 mg, Intravenous, EVERY 6 HOURS NEEDED, Starting on 01/17/24 at 1538, Until 01/23/24 at 1752, Nausea / Vomiting, Refractory Nausea Vomiting, For IV route: dilute dose with 10mL normal saline and give by slow IV push at a rate of 5mg/min. Maximum of 40mg/day. 1053 (MAR Hold - Provider: Automatic Transfer - Reason: Transfer to a Procedural area)1414 (MAR Unhold - Provider: Automatic Transfer)2349 (Given - [...] BE BASED ON THE PRIMARY CLINICAL RECORDS. [facility] [employer] [facility]. provides no warranty or guarantee of the accuracy or completeness of information in this document.
[2024-02-29 07:22] LABS: Creatinine Urine Random 90.14 mg/dL (20.00-300.00); Protein Creatinine Ratio Urine 0.18
[2024-02-29 07:26] LABS: Basophils Percent Auto 0.5 % (0.2-2.0); Eosinophils Absolute Auto 0.1 10^3/uL (0.0-0.7); Eosinophils Percent Auto 1.9 % (0.9-7.0); Hematocrit 42.9 % (42.0-54.0); Hemoglobin 13.7 g/dL (14.0-18.0); Immature Granulocytes Abs Auto 0.01 10^3/uL (0.00-0.03); Immature Granulocytes Pct Auto 0.2 % (0.0-0.5); Lymphocytes Absolute Auto 1.4 10^3/uL (1.2-3.8); Lymphocytes Percent Auto 33.4 % (20.5-60.0); Mean Corpuscular HGB Conc 31.9 g/dL (29.9-35.2); Mean Corpuscular Hemoglobin 27.8 pg (25.9-34.0); Mean Corpuscular Volume 87.2 fL (80.0-94.0); Mean Platelet Volume 9.4 fL (9.5-13.5); Monocytes Absolute Auto 0.4 10^3/uL (0.3-0.8); Monocytes Percent Auto 10.6 % (1.7-12.0); Neutrophils Absolute Auto 2.2 10^3/uL (1.4-6.5); Neutrophils Percent Auto 53.4 % (43.0-75.0); Platelet Count 196 10^3/uL (150-450); Red Blood Count 4.92 10^6/uL (4.70-6.10); Red Cell Distribution Width 14.1 % (11.0-15.0); White Blood Count 4.2 10^3/uL (4.0-11.0)
[2024-02-29 07:28] LABS: Alanine Aminotransferase 34 U/L (16-63); Albumin Level 3.8 g/dL (3.4-5.0); Alkaline Phosphatase 147 U/L (46-116); Anion Gap 14.3; Aspartate Amino Transferase 29 U/L (15-37); BUN Creatinine Ratio 12.8; Bilirubin Direct 0.3 mg/dL (0.0-0.2); Bilirubin Total 1.4 mg/dL (0.2-1.0); Carbon Dioxide 25.5 mmol/L (21.0-32.0); Chloride 106 mmol/L (98-107); Estimated GFR (African America >60 (>=60); Estimated GFR (Non-African Ame >60 (>=60); Gamma Glutamyl Transpeptidase 26 U/L (15-85); Glucose 104 mg/dL (74-106); Magnesium 1.9 mg/dL (1.8-2.4); Phosphorus 3.6 mg/dL (2.6-4.7); Potassium 3.8 mmol/L (3.5-5.1); Sodium 142 mmol/L (136-145)
[2024-02-29 08:27] LABS: Calcium 9.5 mg/dL (8.5-10.1)
== END 2024-02-29 06:36 | disposition home or self-care (01) ==
LOC: LAB 06:36
PROVIDERS: PCP Nurse Practitioner
DX: R79.9 Abnormal finding of blood chemistry, unspecified (principal); Z94.0 Kidney transplant status; Z94.4 Liver transplant status; Z48.298 Encounter for aftercare following other organ transplant
CPT/HCPCS: 36415; 80048; 80197; 82042; 82247; 82248; 82570; 82977; 83735; 84075; 84100; 84156; 84450; 84460; 85025

== ENCOUNTER 2024-03-07 06:37 | Outpatient (OUT) | payer MEDICARE, MEDICAID, SELFPAY ==
--- OUTSIDE RECORDS SUMMARY | 2024-03-07 06:47 | XMS_ITS | CCD ---
Author Organization [facility] Care Team Providers Care Social Organization Professor Name Role Phone Kiana Zuly Unavailable Unavailable [...] Unavailable AICHHOLZ, ZULY Primary Care Unavailable [facility] Primary Care Provider Miguel [facility] Shirin [facility],PharmD, Angel Unavailable Unavailab makayla Leigh [facility],PharmD, Te Unavailable Unavai lable [facility] Primary Care Provider [phone] MIGUEL CARDONA Attending Unavailable MISC, DR BURCH Admitting Unavailable MISC, DR BURCH Consulting Unavailable AICHHOLZ, BLOW DOWN OPERATOR ZULY Primary Care Unavailable MISC, DR BURCH Attending Unavailable MISC, DR BURCH Admitting Unavailable MISC, DR BURCH Consulting Unavailable AICHHOLZ, BLOW DOWN OPERATOR ZULY Primary Care Unavailable MISC, DR BURCH Attending Unavailable ARCELIA PIZARRO Consulting Unavailable KE BURNHAM Attending Unavailable KE BURNHAM Admitting Unavailable BARBARA, DR MÓNICA Munoz Consulting Unavailable AICHHOLZ, BLOW DOWN OPERATOR ZULY Primary Care Unavailable KE BURNHAM Consulting Unavailable MISC, DR BURCH Consulting Unavailable MISC, DR BURCH Attending Unavailable AICHHOLZ, BLOW DOWN OPERATOR ZULY Primary Care Unavailable MISC, DR BURCH Admitting Unavailable MISC, DR DOCTOR Consulting Unavailable MISC, DR DOCTOR Attending Unavailable AICHHOLZ, BLOW DOWN OPERATOR ZULY Primary Care Unavailable MISC, DOCTOR Admitting Unavailable MISC, DR DOCTOR Consulting Unavailable AICHHOLZ, BLOW DOWN OPERATOR ZULY Primary Care Unavailable MISC, DR DOCTOR Admitting Unavailable MISC, DR DOCTOR Attending Unavailable MELINDA, DR GEORGE Munoz Consulting Unavailable MELINDA, DR GEORGE Munoz Attending Unavailable AICHHOLZ, BLOW DOWN OPERATOR ZULY Primary Care Unavailable MELINDA, DR GEORGE Munoz Admitting Unavailable NAUN ., KE Consulting Unavailable MIRANDA, LYNDSAY Consulting Unavailable MELINDA, DR GEORGE Munoz Consulting Unavailable NAUN ., KE Attending Unavailable NAUN ., KE Admitting Unavailable AICHHOLZ, BLOW DOWN OPERATOR ZULY Primary Care Unavailable NAUN ., KE Consulting Unavailable GIAN HERRING Consulting Unavailable AICHHOLZ, BLOW DOWN OPERATOR ZULY Consulting Unavailable AICHHOLZ, BLOW DOWN OPERATOR ZULY Attending Unavailable AICHHOLZ, BLOW DOWN OPERATOR ZULY Admitting Unavailable AICHHOLZ, BLOW DOWN OPERATOR ZULY Primary Care Unavailable MISC, DR DOCTOR Consulting Unavailable MISC, DOCTOR Admitting Unavailable MISC, DR DOCTOR Attending Unavailable AICHHOLZ, BLOW DOWN OPERATOR ZULY Primary Care Unavailable MISC, DR DOCTOR Consulting Unavailable MISC, DR DOCTOR Attending Unavailable MISC, DR DOCTOR Admitting Unavailable AICHHOLZ, BLOW DOWN OPERATOR ZULY Primary Care Unavailable MISC, DOCTOR Admitting Unavailable MISC, DR DOCTOR Consulting Unavailable MISC, DR DOCTOR Attending Unavailable AICHHOLZ, BLOW DOWN OPERATOR ZULY Primary Care Unavailable MISC, DR DOCTOR Admitting Unavailable MISC, DR DOCTOR Consulting Unavailable AICHHOLZ, BLOW DOWN OPERATOR ZULY Primary Care Unavailable MISC, DR DOCTOR Attending Unavailable MISC, DR DOCTOR Admitting Unavailable MISC, DR DOCTOR Consulting Unavailable AICHHOLZ, BLOW DOWN OPERATOR ZULY Primary Care Unavailable MISC, DR DOCTOR Attending Unavailable AICHHOLZ, BLOW DOWN OPERATOR ZULY Consulting Unavailable AICHHOLZ, BLOW DOWN OPERATOR ZULY Attending Unavailable AICHHOLZ, BLOW DOWN OPERATOR ZULY Admitting Unavailable AICHHOLZ, BLOW DOWN OPERATOR ZLUY Primary Care Unavailable DR MÓNICA JIMENEZ Consulting Unavailable [facility] Primary Care Provider Tran White DOs Tray Unavailable [phone] [facility] Primary Care Provider Tran White DOs A Unavailable Momo Verdugo MD Primary Care Provider AICHHOLZ, ZULY Attending Unavailable AICHHOLZ, ZULY Attending Unavailable PALMA PALACIOS Attending Unavailable AICHHOLZ, ZULY Referring Unavailable FIDELINA SANCHEZ Attending Unavailable AICHHOLZ, ZULY Referring Unavailable JOHNNA HOLLIDAY Attending Unavailable AICHHOLZ, ZULY Referring Unavailable AICHHOLZ, ZULY Attending Unavailable AICHHOLZ, ZULY Primary Care Unavailable HAKEEM ALAMO Attending Unavailable SELF, SELF Referring Unavailable AICHHOLZ, ZULY Primary Care Unavailable AICHHOLZ, ZULY Primary Care Unavailable AICHHOLZ, ZULY Primary Care Unavailable AICHHOLZ, ZULY Primary Care Unavailable SELF, SELF Referring Unavailable REBECA GUTIERREZ Attending Unavailable AICHHOLZ, ZULY Primary Care Unavailable YEISONSTEVE Attending Unavailable YEISON, STEVE S Referring Unavailable AICHHOLZ, ZULY Primary Care Unavailable HAKEEM ALAMO Attending Unavailable EVAN WHITE Referring Unavailabl e AICHHOLZ, ZULY Primary Care Unavailable KEVIN PRINCE Attending Unavailable CONSULT, INFECTIOUS DISEASE Consulting Unav ailable YEISON, STEVE S Admitting Unavailable YEISON, STEVE S Referring Unavailable AICHHOLZ, ZULY Primary Care Unavailable NIKI KEVIN Admitting Unavailable AICHHOLZ, ZULY Primary Care Unavailable KELVIN PACHECO Attending Unavailable CONSULT, HEPATOBILIARY Consulting Unavailab le SYSTEM, PROVIDER NOT IN Referring Unavaila ble AICHHOLZ, ZULY Primary Care Unavailable KELVIN PACHECO Referring Unavailable CANDIE ALMAGUER Attending Unavailable AICHHOLZ, ZULY Primary Care Unavailable CANDIE ALMAGUER Attending Unavailable KELVIN PACHECO Referring Unavailable Allergies Allergy Classification Reported Allergen(s) Allergy Type Date of Onset Reaction(s) Facility (1 source) Shellfish; Translations: [SHELLFISH DERIVED] Propensity to adverse reactions (disorder) 8 [facility] Repository (20 sources) Shellfish-Derive d Products Propensity to adverse reactions to drug 9 [facility] (1 source) Shellfish Drug allergy (disorder) [facility] Repository Medications Current Medications Medication Drug Class(es) Dates Sig (Normalized) Sig (Original) allopurinol 100 mg oral tablet (20 sources) [...] tablets by mouth daily. 180 tablet 3 01/23/2024 Active Start: 05-17-2022 End: 05-20-2022 allopurinol (ZYLOPRIM) table t 100 mg Start: 05-16-2022 End: 05-16-2022 take 200 mg by mouth once daily 200 mg, Oral, DAILY, F irst dose on Thu05/16/22 at 0900, Until Discontinued Start: 12-30-2021 take 2 tablets by [facility] once daily allopurinol 100 MG tablet Indications: Abnormal blood chemistry take 2 tablets by mouth once daily 180 tablet 3 12/30/2021 Active Start: 01-28-2021 take 2 tablets by [facility] once daily allopurinol 100 MG tablet Indications: Abnormal blood chemistry Take 2 tablets by mouth daily. 180 tablet 3 01/28/2021 Active ascorbic acid 100 mg / biotin 0.15 mg / calcium pantothenate 5 mg / folic acid 1 mg / niacin 20 mg / pyridoxine 10 mg / riboflavin 1.7 mg / thiamine mononitrate 1.5 mg / vitamin b 12 0.006 mg oral capsule (6 sources) Nicotinic Acid, Vitamin B12, Vitamin C take 1 capsule by mouth once daily b vsbrwis-C-ktgxz acid (NEPHROCAPS) 1 MG capsule Take 1 capsule by mouth daily 0 Active aspirin 81 mg chewable tablet (20 sources) Platelet Aggregation Inhibitor, Nonsteroidal Anti-inflammatory Drug Start: 020 End: 024 aspirin 81 MG Chew Tab chewable tablet [...] oral tablet (1 source) Quinolone Antimicrobial Start: End: take 1 tablet by mouth twice daily ciprofloxacin (Cipro) 500 MG tablet Indications: Kidney replaced by transplant , Liver replaced by transplant , Abnormal blood chemistry Take 1 tablet by mouth 2 times daily for 14 days. 28 tablet 0 06/12/2022 06/26/2022 Active Drug or medicament (substance) (1 source) Start: 023 folic acid 1 mg oral tablet (6 sources) take 1 tablet by mouth once daily folic acid (FOLVITE) 1 MG tablet Take 1 mg by mouth daily 0 Active gabapentin 400 mg oral capsule (20 sources) Anti-epileptic Agent Start: End: take 1 capsule by mouth at bedtime [...] ankle pain. 0 06/12/2020 06/12/2023 Discontinued lactulose 94113 mg powder for oral solution (19 sources) Osmotic Laxative take 20 g by mouth three times daily lactulose (CEPHULAC) 20 g packet Take 20 g by mouth 3 times daily 0 Active midodrine hydrochloride 10 mg oral tablet (20 sources) alpha-Adrenergic Agonist Start: 06-09-2018 Midodrine HCl 10 MG Tab tablet Take [...] 1 tablet by mouth daily 0 Active rifAXIMin 550 mg oral tablet (12 [...] 07/17/2018 Active take 2 tablets by mo [facility] three times daily at mealtime sevelamer (RENVELA) 800 MG tablet Take 2 tablets by mouth 3 times daily (with meals) 0 Active sulfamethoxazole 800 mg / trimethoprim 160 mg oral tablet (16 sources) Dihydrofolate Reductase Inhibitor Antibacterial, Sulfonamide Antimicrobial Start: 09-23-2023 End: 09-22-2024 take 1 tablet by mouth three times weekly Sulfamethoxazole-trimethoprim 800-160 MG per tablet Take 1 tablet by mouth three times a week. 36 tablet 01/22/2024 04/21/2024 Active Start: 09-04-2023 End: 09-11-2023 take 1 tablet by mouth three times weekly, then take 1 tablet by mouth once daily 1 tablet, Oral, THREE TIMES WEEKLY (Once per day on Thu), First dose (after last modification) on Thu09/04/23 at 0900, Until Discontinued Start: 08-26-2023 End: 09-01-2030 Start: 08-26-2023 [facility] Sulfamethoxazole-trimethoprim 800-160 MG per tablet Take 1 tablet by mouth 2 times daily. 0 08/26/2023 Suspended Start: 07-07-2022 End: 07-07-2022 sulfamethoxazole-trimethopri m (BACTRIM DS) 800-160 MG per tablet 1 tablet tamsulosin hydrochloride 0.4 mg oral capsule (20 [...] or crush torsemide 20 mg oral tablet (6 sources) Loop Diuretic Start: 01-22-2024 End: 01-23-2024 [...] as needed acetaminophen (TYLENOL) tablet 650 mg aluminum hydroxide 40 mg/ml / magnesium hydroxide [...] 09-02-2023 End: 09-02-2023 Topical, NEEDED, Starting on 09/02/23 at 0807, Until Discontinued, Intra-op/Intra-Proc benzocaine 15 [...] itraconazole Fax results to: Dr. White - [phone] Transplant Ne[facility] - [phone] Each 09/10/2023 01/19/2024 Discontinued (Medication Reconciliation (suppress cancel msg)) Start: 09-10-2023 CUSTOM MEDICAT ION Labs to be obtained: 1- Tacrolimus level, trough - collect twice weekly until 09/24/23, then weekly until 10/08/23, them once every two weeks there after. 2- Itraconazole level - obtain once between 09/14-09/18. 3- Chem 6 - Obtain weekly while on itraconazole Fax results to: Dr. White - [phone] Transplant [facility] - [phone] Each 0 09/10/2023 Active Diatrizoate (1 source) Start: 05-20-2022 End: 05-20-2022 diatrizoate Meglumine (Cystografin) 30 % UR solution 80 mL diphenhydrAMINE hydrochloride 25 mg oral tablet (1 source) Histamine-1 Receptor Antagonist Start: 09-03-2023 End: 09-11-2023 take 25 mg by mouth every twenty-four hours 25 mg, Oral, EVERY 24 HOURS, First dose on [facility] 09/03/23 at 1600, Until Discontinued Give 30 minutes prior to each amphotericin b dose docusate sodium 100 mg oral capsule (4 sources) Start: 05-15-2022 End: 05-16-2022 take 200 mg by mouth every twelve hours 200 mg, Oral, EVERY 12 HOURS, First dose on [facility] 05/15/22 at 2215, Until Discontinued Start: 05-23-2020 [...] 40 mg, Intravenous, ONCE, 1 dose, On 01/17/24 at 1615, Administer by slow IV push at a rate not exceeding 40mg/min Start: 01-16-2024 End: 01-17-2024 20 mg, Intravenous, ONCE, 1 dose, On 01/17/24 at 0945, Administer by slow IV push at a rate not exceeding 40mg/min 250 ml glucose 50 mg/ml injection (1 source) Start: 09-03-2023 End: 09-09-2023 50 mL, Intravenous, NEEDED, Starting on Marta 09/03/23 at 1519, Until 09/09/23 at 1457, See admin instructions Use sufficient [...] NEEDED, Starting on 08/29/23 at 0803, Until 09/11/23 at 1645, Cough Start: 05-15-2022 End: 05-20-2022 take 400 mg by mouth every six hours as needed guaiFENesin (ROBITUSSIN) oral solution 400 mg 1 ml heparin sodium, porcine 5000 unt/ml prefilled syringe (3 sources) Unfractionated Heparin, Anti-coagulant Start: 08-28-2023 End: 09-11-2023 inject 5000 [IU] by subcutaneous injection every eight hours 5,000 Units, Subcutaneous, EVERY 8 HOURS (0800/1600/2200), First dose on 08/28/23 at 1745, Until Discontinued Start: 05-15-2022 End: [...] [facility] IR itraconazole 10 mg/ml oral solution (15 sources) Azole Antifungal Start: 01-16-2024 End: 01-23-2024 [...] by mouth 2 times daily. 60 tablet 11 12/24/2020 12/19/2021 Active magnesium oxide 400 mg oral tablet (20 sources) Start: 09-30-2023 End: 02-26-2024 take 2 tablets by mouth once daily magnesium oxide 400 (240 Mg) MG Take 2 tablets by mouth daily. 180 tablet 3 09/30/2023 02/26/2024 Discontinued Start: 09-08-2023 End: 09-11-2023 Start: 09-05-2023 End: [...] 01/16/2023 Discontinued take 2 tablets by mo [facility] in the morning magnesium oxide (Mag-Ox) 400 MG tablet Take 2 tablets by mouth in the morning. 0 Active take 1 tablet by magy th once daily magnesium oxide (MAG-OX) 400 MG tablet Take 400 mg by mouth daily 0 Active 50 ml magnesium sulfate 80 mg/ml [...] 06/14/2020 06/12/2023 Discontinued take 1 tablet by [facility] every eight hours as needed ondansetron 4 [...] needed Ondansetron 4mg/2ml (ZOFRAN) injection 4 mg oxyCODONE hydrochloride 5 mg oral tablet (20 sources) Opioid Agonist Start: 01-23-2024 End: 02-26-2024 take 1 tablet by mouth every six hours as needed for pain oxyCODONE 5 MG tablet Indications: End stage renal disease Take 1 tablet by mouth every 6 hours as needed for Severe Pain for up to 3 days. 12 tablet 01/23/2024 02/26/2024 Discontinued Start: 01-22-2024 End: 01-23-2024 take 1 tablet [...] (ROXICODONE) tablet 10 mg polyethylene glycol 3350 69965 mg powder for oral solution (20 sources) [...] rate of 5mg/min. Maximum of 40mg/day. sennosides, assisted 8.6 mg oral tablet (1 source) Start: [...] chloride 0.9% IV solu tion 250 mL tacrolimus 0.2 mg granules for oral suspension (20 sources) Calcineurin Inhibitor Immunosuppressant Start: 02-19-2024 End: 03-02-2024 take 0.2 mg by mouth once Tacrolimus 0.2 MG Pack Take 0.2 mg by mouth every Thursday and Thursday. 02/19/2024 03/02/2024 Discontinued (Reorder) Start: 01-16-2024 End: 01-23-2024 0.2 mg, Oral, CUSTOM FREQUEN CY (Once per day on Thursday), First dose on Thu01/16/24 at 0900, Until Discontinued, Caution check route of administration. For sublingual administration, place liquid under tongue and allow absorption. Start: 01-14-2024 take 1 dose by mouth once Tacr olimus 0.2 MG Pack Mix 1 packet (0.2 mg) and take by mouth every Thursday, , Thursday. 10 Each 01/14/2024 Active Start: 09-10-2023 End: 01-09-2024 Prograf 0.2 MG pack Start: 09-04-2023 End: 09-08-2023 take 0.5 mg by mouth once daily 0.5 mg, Oral, DAILY, First dose (after last modification) on Thu09/04/23 [...] on Marta 05/15/22 at 2215, Until Discontinued Do not split, [...] 3 11-03-2023 Episodic Congestive heart failure; nonhypertensive (12 sources) Acute diastolic heart failure; Translations: [Acute diastolic (congestive) heart failure] Onset: 4 01-20-2024 Chronic Coronary atherosclerosis and other heart disease (20 sources) Coronary arteriosclerosis; Translations: [Atherosclerotic heart disease of [place] coronary artery without angina pectoris] Onset: 3 [...] sources) Taking high risk medication; Translations: [Other long-term (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] Episodic Other and ill-defined [...] aorta] 01-06-2024 Chronic Pleurisy; pneumothorax; pulmonary collapse (8 sources) Pleural effusion; Translations: [Pleural effusion, not [...] W/AND (SUSP) EXPOS COVID-19] Onset: 2 Unclassified (14 sources) New Patient Onset: 3 03-26-2023 Unclassified (14 sources) Access to Medication(s) Onset: 3 03-26-2023 Unclassified (14 sources) Safety: Avoid toxicity that would cause discontinuation Onset: 3 03-26-2023 Unclassified (14 sources) Identify and eliminate barriers to patient adherence Onset: 3 03-26-2023 Unclassified (14 sources) Ensure that patient is receiving therapeutic [...] Onset: 11-08-2022 Episodic Fever of unknown origin (12 sources) Fever; Translations: [Fever, unspecified] Onset: 08-28-2023 Resolved: 09-10-2023 08-28-2023 Episodic Genitourinary symptoms and ill-defined conditions (7 sources) Retention of urine, unspecified; Translations: [Hematuria, unspecified] Onset: 05-11-2022 Episodic Mycoses (16 sources) Histoplasmosis; Translations: [Histoplasmosis, unspecified] Onset: 08-28-2023 09-10-2023 Episodic Nausea and vomiting (20 sources) Nausea and vomiting; Translations: [Nausea with vomiting, unspecified] Onset: 05-10-2020 05-10-2020 Episodic Other aftercare (2 sources) 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 drier operator (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; Translations: [OTH PENITENTIARY 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 THERAPY] Onset: 07-06-2022 Episodic Other aftercare (1 source) alf (current) use of aspirin; Translations: [FOUNDRY EQUIPMENT MECHANIC CURRENT USE OF ASPIRIN] Onset: 06-20-2022 Episodic [...] transplant] Onset: 08-28-2023 Unclassified (1 source) 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 drier operator (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; Translations: [Other long-term (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] Onset: 08-28-2023 Unclassified (1 source) Hypertension secondary to other renal disorders; Translations: [Hypertension secondary to other renal disorders] Onset: 08-28-2023 Results Test Name Value Interpretation Reference Range Facility B-TYPE NATRIURETIC PEPTIDE ( BRAIN)on 02-26-2024 Natriuretic peptide B (Bld) [Mass/Vol] 72 pg/mL Normal 0-100 [facility] Comment on above: Performed By: #### B MUSIC MANAGER ####[facility] (DEFAULT)[address] [place] [address] Interpretation and review of laboratory results Normal [facility] Natriuretic peptide B (Bld) [Mass/Vol] 72 pg/mL 0 - 100 pg/mL [facility] CHEM 6 (LYTES, BUN CREA)on 0 02-26-2024 Anion gap [Moles/Vol] 13 mmol/L Normal 7-17 [facility] Comment on above: Performed By: #### C HM6 ####[facility] (DEFAULT)[address] [place] [address] Chloride [Moles/Vol] 107 mmol/L Normal 98-108 [facility] Comment on above: Performed By: #### C HM6 ####[facility] (DEFAULT)[address] [place] [address] CO2 [Moles/Vol] 25 mmol/L Normal 21-31 [facility] Comment on above: Performed By: #### C HM6 ####[facility] (DEFAULT)[address] [place] [address] Creatinine [Mass/Vol] 1.23 mg/dL Normal 0.70-1.30 [facility] Comment on above: Performed By: #### C HM6 ####[facility] (DEFAULT)[address] [facility] [place] [address] GFR/1.73 sq M.predicted among non-blacks MDRD (S/P/Bld) [Vol rate/Area] 70 mL/min/{1.73_m2} Normal >=60 [facility] Comment on above: Result Comment: Repo rted eGFR is based on the CKD-EPI 2020 equation using creatinine, age, and sex. Performed By: #### C HM6 ####[facility] (DEFAULT)[address] [place], [place] [address], [place] [address] Potassium [Moles/Vol] 4.2 mmol/L Normal 3.5-5.0 [facility] Comment on above: Performed By: #### C HM6 ####[facility] (DEFAULT)[address] [place] [address], [place] [address] Sodium [Moles/Vol] 141 mmol/L Normal 135-145 [facility] Comment on above: Performed By: #### C HM6 ####[facility] (DEFAULT)[address] [place] [address] Urea nitrogen [Mass/Vol] 17 mg/dL Normal 7-25 [facility] Comment on above: Performed By: #### C HM6 ####[facility] (DEFAULT)[address] [place] [address], [place] [address] Urea nitrogen/Creatinine [Mass ratio] 14 mg/mg Normal [facility] Comment on above: Performed By: #### C HM6 ####[facility] (DEFAULT)[address] [place] [address] Anion gap [Moles/Vol] 13 mmol/L 7 - 17 mmol/L [facility] Chloride [Moles/Vol] 107 mmol/L 98 - 10 8 mmol/L [facility] CO2 [Moles/Vol] 25 mmol/L 21 - 31 mmol/L [facility] Creatinine [Mass/Vol] 1.23 mg/dL 0.70 - 1.30 mg/dL [facility] eGFR, CKD-EPI, Male 70 - PINF [facility] Comment on above: Reported eGFR is bas ed on the CKD-EPI 2020 equation using creatinine, age, and sex. Potassium [Moles/Vol] 4.2 mmol/L 3.5 - 5.0 mmol/L [facility] Sodium [Moles/Vol] 141 mmol/L 135 - 145 mmol/L [facility] Urea nitrogen [Mass/Vol] 17 mg/dL 7 - 25 mg/dL [facility] Urea nitrogen/Creatinine [Mass ratio] 14 mg/mg [facility] CBC,PLATELETSon 01-23-2024 Hematocrit (Bld) [Volume fraction] 37.0 % Low 39.6-48.8 [facility] Comment on above: Performed By: #### [place] [facility] [place] ####[facility] (DEFAULT)[address] [place] [address] Hemoglobin (Bld) [Mass/Vol] 12.0 g/dL Low 13.4-16.8 [facility] Comment on above: Performed By: #### [place] [facility] [place] ####[facility] (DEFAULT)[address] [place] [address] MCV (RBC) [Entitic vol] 88.1 fL Normal 79.0-94.5 [facility] Comment on above: Performed By: #### [place] [facility] [place] ####[facility] (DEFAULT)[address] [place] [address] Mean Cell Hgb 28.6 pg Normal 26.1-33.3 [facility] Comment on above: Performed By: #### [place] [facility] [place] ####[facility] (DEFAULT)[address] [place] [address] Mean Cell Hgb Conc 32.4 g/dL Normal 31.9-36.5 [facility] Comment on above: Performed By: #### H EMOGC ####[facility] (DEFAULT)[address] [place] [address] Platelet mean volume (Bld) [Entitic vol] 10.4 fL Normal 8.7-12.3 [facility] Comment on above: Performed By: #### H EMOGC ####[facility] (DEFAULT)[address] [place] [address] Platelets (Bld) [#/Vol] 170 10*3/uL Normal 146-337 [facility] Comment on above: Performed By: #### H EMOGC ####[facility] (DEFAULT)[address] [place] [address] RBC (Bld) [#/Vol] 4.20 10*6/uL Low 4.38-5.83 [facility] Comment on above: Performed By: #### H EMO ####[facility] (DEFAULT)[address] [place] [address] RBC Distribution 14.2 % Normal 10.9-14.3 [facility] Comment on above: Performed By: #### H EMOGC ####[facility] (DEFAULT)[address] [place] [address] WBC (Bld) [#/Vol] 3.70 10*3/uL Low 3.73-10.10 [facility] Comment on above: Performed By: #### H EMOGC ####[facility] (DEFAULT)[address] [place] [address] Erythrocyte distribution width (RBC) [Ratio] 14.2 % 10.9 - 14.3 % [facility] Hematocrit (Bld) [Volume fraction] 37.0 % Low 39.6 - 48.8 % [facility] Hemoglobin (Bld) [Mass/Vol] 12.0 g/dL Low 13.4 - 16.8 g/dL [facility] Interpretation and review of laboratory results Abnormal [facility] MCH (RBC) [Entitic mass] 28.6 pg 26.1 - 33.3 pg [facility] MCHC (RBC) [Mass/Vol] 32.4 g/dL 31.9 - 36.5 g/dL [facility] MCV (RBC) [Entitic vol] 88.1 fL 79.0 - 94.5 fL [facility] Platelet mean volume (Bld) [Entitic vol] 10.4 fL 8.7 - 12.3 fL [facility] Platelets (Bld) [#/Vol] 170 10*3/uL 146 - 337 K/uL [facility] RBC (Bld) [#/Vol] 4.20 10*6/uL Low [facility] WBC (Bld) [#/Vol] 3.70 10*3/uL Low 3.73 - 10. 10 K/uL [facility] CHEM 7 (LYTES,BUN,CREA,GLUC) on 01-23-2024 Anion gap [Moles/Vol] 14 mmol/L Normal 7-17 [facility] Comment on above: Performed By: #### NATHANIEL RAMÍREZ, HFP ####[facility] (DEFAULT)[address] [place] [address] Chloride [Moles/Vol] 105 mmol/L Normal 98-108 [facility] Comment on above: Performed By: #### NATHANIEL RAMÍREZ, HFP ####[facility] (DEFAULT)[address] [place] [address] CO2 [Moles/Vol] 25 mmol/L Normal 21-31 [facility] Comment on above: Performed By: #### NATHANIEL RAMÍREZ, HFP ####[facility] (DEFAULT)[address] [address] [place] [address] Creatinine [Mass/Vol] 1.32 mg/dL High 0.70-1.30 [facility] Comment on above: Performed By: #### NATHANIEL RAMÍREZ, HFP ####[facility] (DEFAULT)[address] [place] [address] GFR/1.73 sq M.predicted among non-blacks MDRD (S/P/Bld) [Vol rate/Area] 65 mL/min/{1.73_m2} Normal >=60 [facility] Comment on above: Result Comment: Repo rted eGFR is based on the CKD-EPI 2020 equation using creatinine, age, and sex. Performed By: #### NATHANIEL RAMÍREZ, HFP ####[facility] (DEFAULT)[address] [place] [address] Glucose [Mass/Vol] 94 mg/dL Normal 70-99 [facility] Comment on above: Performed By: #### NATHANIEL RAMÍREZ, HFP ####[facility] (DEFAULT)[address] [place] [address] Osmolality [Osmolality] 296 mosm/kg Normal 278-305 [facility] Comment on above: Performed By: #### NATHANIEL RAMÍREZ, HFP ####[facility] (DEFAULT)[address] [place] [address] Potassium [Moles/Vol] 3.8 mmol/L Normal 3.5-5.0 [facility] Comment on above: Performed By: #### Rod BLOOM CHMJessica, HFP ####[facility] (DEFAULT)[address] [place] [address] Sodium [Moles/Vol] 140 mmol/L Normal 135-145 [facility] Comment on above: Performed By: #### Rod BLOOM CHM7, HFP ####[facility] (DEFAULT)[address] [place] [address] Urea nitrogen [Mass/Vol] 23 mg/dL Normal 7-25 [facility] Comment on above: Performed By: #### Rod BLOOM CHM7, HFP ####[facility] (DEFAULT)[address] [place] [address] Urea nitrogen/Creatinine [Mass ratio] 17 mg/mg Normal [facility] Comment on above: Performed By: #### M , M7, [facility] ####[facility] (DEFAULT)[address] [place] [address] Anion gap [Moles/Vol] 14 mmol/L 7 - 17 mmol/L [facility] Chloride [Moles/Vol] 105 mmol/L 98 - 10 8 mmol/L [facility] CO2 [Moles/Vol] 25 mmol/L 21 - 31 mmol/L [facility] Creatinine [Mass/Vol] 1.32 mg/dL High 0.70 - 1.30 mg/dL [facility] eGFR, CKD-EPI, Male 65 - PINF [facility] Comment on above: Reported eGFR is bas ed on the CKD-EPI 2020 equation using creatinine, age, and sex. Glucose [Mass/Vol] 94 mg/dL 70 - 99 mg/dL [facility] Osmolality Calc [Osmolality] 296 [facility] Potassium [Moles/Vol] 3.8 mmol/L 3.5 - 5.0 mmol/L [facility] Sodium [Moles/Vol] 140 mmol/L 135 - 145 mmol/L [facility] Urea nitrogen [Mass/Vol] 23 mg/dL 7 - 25 mg/dL [facility] Urea nitrogen/Creatinine [Mass ratio] 17 mg/mg [facility] GLUCOSE POCon 01-23-2024 Glucose [Mass/Vol] 88 mg/dL 70 - 99 mg/dL [facility] POC Sample Type CAPBL [facility] Test performed at ad dress of the patient encounter. [facility] Glucose [Mass/Vol] 191 mg/dL High 70 - 99 mg/dL [facility] Interpretation and review of laboratory results Abnormal [facility] POC Sample Type CAPBL [facility] Test performed at ad dress of the patient encounter. [facility] HEPATIC FUNCTION PANELon Albumin [Mass/Vol] 3.9 g/dL Normal 3.5-5.0 [facility] Comment on above: Performed By: #### M GO CHM7, HFP ####[facility] (DEFAULT)[address] [place] [address] ALP [Catalytic activity/Vol] 83 U/L Normal 32-126 [facility] Comment on above: Performed By: #### M GO CHM7, HFP ####[facility] (DEFAULT)[address] [place] [address] ALT [Catalytic activity/Vol] 9 U/L Low 10-52 [facility] Comment on above: Performed By: #### M GO CHM7, HFP ####[facility] (DEFAULT)[address] [place] [address] AST [Catalytic activity/Vol] 17 U/L Normal 10-39 [facility] Comment on above: Performed By: #### M GO CHM7, HFP ####[facility] (DEFAULT)[address] [place] [address] Bilirubin [Mass/Vol] 1.6 mg/dL High <1.5 [facility] Comment on above: Performed By: #### M GO CHM7, HFP ####[facility] (DEFAULT)[address] [place] [address] Bilirubin.indirect [Mass/Vol] 0.4 mg/dL High <0.3 [facility] Comment on above: Performed By: #### M GO, CHM7, HFP ####[facility] (DEFAULT)[address] [place] [address] Protein [Mass/Vol] 6.6 g/dL Normal 6.4-8.3 [facility] Comment on above: Performed By: #### M GO, CHM7, HFP ####[facility] (DEFAULT)[address] [place] [address] Albumin [Mass/Vol] 3.9 g/dL 3.5 - 5.0 [facility] ALP [Catalytic activity/Vol] 83 U/L 32 - 126 U/L [facility] ALT [Catalytic activity/Vol] 9 U/L Low 10 - 52 U/L [facility] AST [Catalytic activity/Vol] 17 U/L 10 - 39 U/L [facility] Bilirubin [Mass/Vol] 1.6 mg/dL High NINF - 1.5 mg/dL [facility] Bilirubin.direct [Mass/Vol] 0.4 mg/dL High NINF - 0.3 mg/dL [facility] Protein [Mass/Vol] 6.6 g/dL 6.4 - 8.3 g/dL [facility] ITRACONAZOLE LEVELon 024 Hydroxyitraconazole [Mass/Vol] 7.6 mcg/mL [facility] Comment on above: REFERENCE VALUE No therapeutic range established; activity and serum concentration are similar to parent drug. ADDITIONAL INFORMATION This test was developed and its performance characteristics determined by [facility] in a manner consistent with CLIA requirements. This test has not been cleared or approved by the U.S. Food and Drug Administration. Test Performed by: [facility] [address] [place] [address] Director Learning And Development: Rosendo Bose M.D. Ph.D.; CLIA# [id number] Itraconazole [Mass/Vol] 6.0 mcg/mL [facility] Comment on above: REFERENCE VALUE >0.5 (localized infection), >1.0 (systemic infection) [facility] MAGNESIUMon 01-23-2024 Magnesium [Mass/Vol] 1.8 mg/dL Normal 1.6-2.6 [facility] Comment on above: Performed By: #### M GO, CHM7, [facility] ####[facility] (DEFAULT)[address] [place] [address] Interpretation and review of laboratory results Normal [facility] Magnesium [Mass/Vol] 1.8 mg/dL 1.6 - 2 .6 mg/dL [facility] No Panel Informationon 01-23 Interpretation and review of laboratory results Abnormal [facility] TACROLIMUS LEVEL, TROUGH (IN E DRUG LEVEL)on 01-23-2024 Interpretation and review of laboratory results Normal [facility] Tacrolimus (Bld) [Mass/Vol] 7.0 ng/mL Bone Marrow Transplant: 4.0-12.0, Therapeutic: 5.0-15.0 [facility] Method performed is a chemiluminescent microparticle immunoasssay on the [employer] i2000. The range is based on experience at [facility] and users should be aware that target concentrations vary widely depending on concomitant therapy, time post-transplant, and desired degree of immunosuppression. [facility] Tacrolimus, Trough 7.0 ng/mL Normal Bone Susana ow Transplant: 4.0-12.0, Therapeutic: 5.0-15.0 [facility] Comment on above: Order Comment: Pleas e draw at specified interval PRIOR to dose. Do not hold dose to wait for level. Specimens batched twice per day, (M-F) and once per day weekendsMethod performed is a chemiluminescent microparticle immunoasssay on the [employer] i2000.The range is based on experience at [facility] and users should be aware that target concentrations vary widely depending on concomitant therapy, time post-transplant, and desired degree of immunosuppression. Performed By: #### T ACRO ####[facility] (DEFAULT)[address] [place] [address] CARDIAC RHYTHM (SCANNED)on 01-22-2024 [facility] CBC,PLATELETSon 01-22-2024 Hematocrit (Bld) [Volume fraction] 41.5 % Normal 39.6-48.8 [facility] Comment on above: Performed By: #### H EMOGC ####[facility] (DEFAULT)[address] [facility] [place] [address] Hemoglobin (Bld) [Mass/Vol] 13.3 g/dL Low 13.4-16.8 [facility] Comment on above: Performed By: #### H EMOGC ####[facility] (DEFAULT)[address] [place], [place] [address], [place] [address] MCV (RBC) [Entitic vol] 86.8 fL Normal 79.0-94.5 [facility] Comment on above: Performed By: #### H EMOGC ####[facility] (DEFAULT)[address] [facility] [place] [address] Mean Cell Hgb 27.8 pg Normal 26.1-33.3 [facility] Comment on above: Performed By: #### H EMOGC ####[facility] (DEFAULT)[address] [place] [place] [address] Mean Cell Hgb Conc 32.0 g/dL Normal 31.9-36.5 [facility] Comment on above: Performed By: #### H EMOGC ####[facility] (DEFAULT)[address] [facility] [place] [address] Platelet mean volume (Bld) [Entitic vol] 10.5 fL Normal 8.7-12.3 [facility] Comment on above: Performed By: #### H EMOGC ####[facility] (DEFAULT)[address] [place] [address] Platelets (Bld) [#/Vol] 186 10*3/uL Normal 146-337 [facility] Comment on above: Performed By: #### H EMOGC ####[facility] (DEFAULT)[address] [place] [address] RBC (Bld) [#/Vol] 4.78 10*6/uL Normal 4.38-5.83 [facility] Comment on above: Performed By: #### [place] [facility] [place] ####[facility] (DEFAULT)[address] [place] [address] RBC Distribution 14.1 % Normal 10.9-14.3 [facility] Comment on above: Performed By: #### [place] [facility] [place] ####[facility] (DEFAULT)[address] [place] [address] WBC (Bld) [#/Vol] 3.74 10*3/uL Normal 3.73-10.10 [facility] Comment on above: Performed By: #### [place] [facility] [place] ####[facility] (DEFAULT)[address] [place] [address] Erythrocyte distribution width (RBC) [Ratio] 14.1 % 10.9 - 14.3 % [facility] Hematocrit (Bld) [Volume fraction] 41.5 % 39.6 - 48.8 % [facility] Hemoglobin (Bld) [Mass/Vol] 13.3 g/dL Low 13.4 - 16.8 g/dL [facility] Interpretation and review of laboratory results Abnormal [facility] MCH (RBC) [Entitic mass] 27.8 pg 26.1 - 33.3 pg [facility] MCHC (RBC) [Mass/Vol] 32.0 g/dL 31.9 - 36.5 g/dL [facility] MCV (RBC) [Entitic vol] 86.8 fL 79.0 - 94.5 fL [facility] Platelet mean volume (Bld) [Entitic vol] 10.5 fL 8.7 - 12.3 fL [facility] Platelets (Bld) [#/Vol] 186 10*3/uL 146 - 337 K/uL [facility] RBC (Bld) [#/Vol] 4.78 10*6/uL [facility] WBC (Bld) [#/Vol] 3.74 10*3/uL 3.73 - 10. 10 K/uL [facility] CHEM 7 (LYTES,BUN,CREA,GLUC) on 01-22-2024 Anion gap [Moles/Vol] 13 mmol/L Normal 7-17 [facility] Comment on above: Performed By: #### NATHANIEL RAMÍREZ ####[facility] (DEFAULT)[address] [place] [address] Chloride [Moles/Vol] 109 mmol/L High 98-108 [facility] Comment on above: Performed By: #### TJ RAMÍREZ7 ####[facility] (DEFAULT)[address] [place] [address] CO2 [Moles/Vol] 23 mmol/L Normal 21-31 [facility] Comment on above: Performed By: #### TJ RAMÍREZ7 ####[facility] (DEFAULT)[address] [facility] [place] [address] Creatinine [Mass/Vol] 1.10 mg/dL Normal 0.70-1.30 [facility] Comment on above: Performed By: #### TJ RAMÍREZ7 ####[facility] (DEFAULT)[address] [place] [address] GFR/1.73 sq M.predicted among non-blacks MDRD (S/P/Bld) [Vol rate/Area] 81 mL/min/{1.73_m2} Normal >=60 [facility] Comment on above: Result Comment: Repo rted eGFR is based on the CKD-EPI 2020 equation using creatinine, age, and sex. Performed By: #### TJ RAMÍREZ7 ####[facility] (DEFAULT)[address] [facility] [place] [address] Glucose [Mass/Vol] 84 mg/dL Normal 70-99 [facility] Comment on above: Performed By: #### TJ RAMÍREZ7 ####[facility] (DEFAULT)[address] [place] [address] Osmolality [Osmolality] 295 mosm/kg Normal 278-305 [facility] Comment on above: Performed By: #### Rod BLOOM CHM7 ####[facility] (DEFAULT)[address] [place] [address] Potassium [Moles/Vol] 4.0 mmol/L Normal 3.5-5.0 [facility] Comment on above: Performed By: #### Rod BLOOM CHM7 ####[facility] (DEFAULT)[address] [place] [address] Sodium [Moles/Vol] 141 mmol/L Normal 135-145 [facility] Comment on above: Performed By: #### Rod BLOOM CHM7 ####[facility] (DEFAULT)[address] [place] [address] Urea nitrogen [Mass/Vol] 16 mg/dL Normal 7-25 [facility] Comment on above: Performed By: #### Rod BLOOM CHM7 ####[facility] (DEFAULT)[address] [place] [address] Urea nitrogen/Creatinine [Mass ratio] 15 mg/mg Normal [facility] Comment on above: Performed By: #### Rod BLOOM CHM7 ####[facility] (DEFAULT)[address] [place] [address] Anion gap [Moles/Vol] 13 mmol/L 7 - 17 mmol/L [facility] Chloride [Moles/Vol] 109 mmol/L High 98 - 10 8 mmol/L [facility] CO2 [Moles/Vol] 23 mmol/L 21 - 31 mmol/L [facility] Creatinine [Mass/Vol] 1.10 mg/dL 0.70 - 1.30 mg/dL [facility] eGFR, CKD-EPI, Male 81 - PINF [facility] Comment on above: Reported eGFR is bas ed on the CKD-EPI 2020 equation using creatinine, age, and sex. Glucose [Mass/Vol] 84 mg/dL 70 - 99 mg/dL [facility] Interpretation and review of laboratory results Abnormal [facility] Osmolality Calc [Osmolality] 295 [facility] Potassium [Moles/Vol] 4.0 mmol/L 3.5 - 5.0 mmol/L [facility] Sodium [Moles/Vol] 141 mmol/L 135 - 145 mmol/L [facility] Urea nitrogen [Mass/Vol] 16 mg/dL 7 - 25 mg/dL [facility] Urea nitrogen/Creatinine [Mass ratio] 15 mg/mg [facility] MAGNESIUMon 01-22-2024 Magnesium [Mass/Vol] 2.0 mg/dL Normal 1.6-2.6 [facility] Comment on above: Performed By: #### M MERLE CHM7 ####[facility] (DEFAULT)[address] [place] [address] Interpretation and review of laboratory results Normal [facility] Magnesium [Mass/Vol] 2.0 mg/dL 1.6 - 2 .6 mg/dL [facility] No Panel Informationon 01-22 [facility] PT,INR,PTTon 01-22-2024 aPTT Coag (Bld) [Time] 29.2 s Normal 24.0-34.3 [facility] Comment on above: Performed By: #### P TPTT ####[facility] (DEFAULT)[address] [place] [address] INR Coag (PPP) [Relative time] 1.1 {INR} Normal 0.9-1.1 [facility] Comment on above: Performed By: #### P TPTT ####[facility] (DEFAULT)[address] [place] [address] PT Coag (PPP) [Time] 14.3 s High 11.9-14.2 [facility] Comment on above: Performed By: #### P TPTT ####[facility] (DEFAULT)[address] [place] [address] aPTT Coag (PPP) [Time] 29.2 s [facility] INR Coag (Bld) [Relative time] 1.1 {INR} 0.9 - 1.1 [facility] Interpretation and review of laboratory results Abnormal [facility] PT Coag (PPP) [Time] 14.3 s High [facility] TACROLIMUS LEVEL, TROUGH (IN E DRUG LEVEL)Ordered By: Sheree Jensen on 01-22-2024 Interpretation and review of laboratory results Normal [facility] Tacrolimus (Bld) [Mass/Vol] 7.9 ng/mL Bone Marrow Transplant: 4.0-12.0, Therapeutic: 5.0-15.0 [facility] Method performed is a chemiluminescent microparticle immunoasssay on the [employer] i2000. The range is based on experience at [facility] and users should be aware that target concentrations vary widely depending on concomitant therapy, time post-transplant, and desired degree of immunosuppression. [facility] TACROLIMUS LEVEL, TROUGH (IN E DRUG LEVEL)on 01-22-2024 Tacrolimus, Trough 7.9 ng/mL Normal Bone Susana ow Transplant: 4.0-12.0, Therapeutic: 5.0-15.0 [facility] Comment on above: Order Comment: Pleas e draw at specified interval PRIOR to dose. Do not hold dose to wait for level. Specimens batched twice per day, (M-F) and once per day weekendsMethod performed is a chemiluminescent microparticle immunoasssay on the [employer] i2000.The range is based on experience at [facility] and users should be aware that target concentrations vary widely depending on concomitant therapy, time post-transplant, and desired degree of immunosuppression. Performed By: #### T ACRO ####[facility] (DEFAULT)[address] [place] [address] TYPE AND SCREENon 01-22-2024 ABO/RH(D) TYPE Positive [facility] ABO/RH(D) TYPE Positive Normal [facility] Comment on above: Performed By: #### X M ####[facility] (DEFAULT)[address] [place] [address] [place] Unspecified body regionOr dered By: Unassigned Pacs on 01-22-2024 [facility] Work Phone: [place] Unspecified body regionon 01-22-2024 Radiology Study observation (narrative) [facility] CBC,PLATELETSon 01-21-2024 Hematocrit (Bld) [Volume fraction] 39.4 % Low 39.6-48.8 [facility] Comment on above: Performed By: #### H EMOGC ####[facility] (DEFAULT)[address] [place] [address] Hemoglobin (Bld) [Mass/Vol] 12.7 g/dL Low 13.4-16.8 [facility] Comment on above: Performed By: #### H EMOGC ####[facility] (DEFAULT)[address] [place] [address] MCV (RBC) [Entitic vol] 87.0 fL Normal 79.0-94.5 [facility] Comment on above: Performed By: #### H EMOGC ####[facility] (DEFAULT)[address] [place] [address] Mean Cell Hgb 28.0 pg Normal 26.1-33.3 [facility] Comment on above: Performed By: #### H EMOGC ####[facility] (DEFAULT)[address] [place] [address] Mean Cell Hgb Conc 32.2 g/dL Normal 31.9-36.5 [facility] Comment on above: Performed By: #### H EMOGC ####[facility] (DEFAULT)[address] [place] [address] Platelet mean volume (Bld) [Entitic vol] 10.2 fL Normal 8.7-12.3 [facility] Comment on above: Performed By: #### H EMO ####[facility] (DEFAULT)[address] [place] [address] Platelets (Bld) [#/Vol] 157 10*3/uL Normal 146-337 [facility] Comment on above: Performed By: #### H EMO ####[facility] (DEFAULT)[address] [place] [address] RBC (Bld) [#/Vol] 4.53 10*6/uL Normal 4.38-5.83 [facility] Comment on above: Performed By: #### H EMO ####[facility] (DEFAULT)[address] [place] [address] RBC Distribution 14.0 % Normal 10.9-14.3 [facility] Comment on above: Performed By: #### H EMO ####[facility] (DEFAULT)[address] [place] [address] WBC (Bld) [#/Vol] 3.42 10*3/uL Low 3.73-10.10 [facility] Comment on above: Performed By: #### H EMO ####[facility] (DEFAULT)[address] [place] [address] Erythrocyte distribution width (RBC) [Ratio] 14.0 % 10.9 - 14.3 % [facility] Hematocrit (Bld) [Volume fraction] 39.4 % Low 39.6 - 48.8 % [facility] Hemoglobin (Bld) [Mass/Vol] 12.7 g/dL Low 13.4 - 16.8 g/dL [facility] Interpretation and review of laboratory results Abnormal [facility] MCH (RBC) [Entitic mass] 28.0 pg 26.1 - 33.3 pg [facility] MCHC (RBC) [Mass/Vol] 32.2 g/dL 31.9 - 36.5 g/dL [facility] MCV (RBC) [Entitic vol] 87.0 fL 79.0 - 94.5 fL [facility] Platelet mean volume (Bld) [Entitic vol] 10.2 fL 8.7 - 12.3 fL [facility] Platelets (Bld) [#/Vol] 157 10*3/uL 146 - 337 K/uL [facility] RBC (Bld) [#/Vol] 4.53 10*6/uL [facility] WBC (Bld) [#/Vol] 3.42 10*3/uL Low 3.73 - 10. 10 K/uL [facility] CHEM 7 (LYTES,BUN,CREA,GLUC) on 01-21-2024 Anion gap [Moles/Vol] 12 mmol/L Normal 7-17 [facility] Comment on above: Performed By: #### TJ RAMÍREZ7 ####[facility] (DEFAULT)[address] [place] [address] Chloride [Moles/Vol] 107 mmol/L Normal 98-108 [facility] Comment on above: Performed By: #### TJ RAMÍREZ7 ####[facility] (DEFAULT)[address] [place] [address] CO2 [Moles/Vol] 26 mmol/L Normal 21-31 [facility] Comment on above: Performed By: #### TJ RAMÍREZ7 ####[facility] (DEFAULT)[address] [place] [address] Creatinine [Mass/Vol] 1.11 mg/dL Normal 0.70-1.30 [facility] Comment on above: Performed By: #### TJ RAMÍREZ7 ####[facility] (DEFAULT)[address] [place] [address] GFR/1.73 sq M.predicted among non-blacks MDRD (S/P/Bld) [Vol rate/Area] 80 mL/min/{1.73_m2} Normal >=60 [facility] Comment on above: Result Comment: Repo rted eGFR is based on the CKD-EPI 2020 equation using creatinine, age, and sex. Performed By: #### TJ RAMÍREZ7 ####[facility] (DEFAULT)[address] [place] [address] Glucose [Mass/Vol] 93 mg/dL Normal 70-99 [facility] Comment on above: Performed By: #### TJ RAMÍREZ7 ####[facility] (DEFAULT)[address] [place] [address] Osmolality [Osmolality] 295 mosm/kg Normal 278-305 [facility] Comment on above: Performed By: #### TJ RAMÍREZ7 ####[facility] (DEFAULT)[address] [place] [address] Potassium [Moles/Vol] 3.9 mmol/L Normal 3.5-5.0 [facility] Comment on above: Performed By: #### TJ RAMÍREZ7 ####[facility] (DEFAULT)[address] [place] [address] Sodium [Moles/Vol] 141 mmol/L Normal 135-145 [facility] Comment on above: Performed By: #### Rod BLOOM CHM7 ####[facility] (DEFAULT)[address] [place] [address] Urea nitrogen [Mass/Vol] 15 mg/dL Normal 7-25 [facility] Comment on above: Performed By: #### TJ RAMÍREZ7 ####[facility] (DEFAULT)[address] [place] [address] Urea nitrogen/Creatinine [Mass ratio] 14 mg/mg Normal [facility] Comment on above: Performed By: #### TJ RAMÍREZ7 ####[facility] (DEFAULT)[address] [place] [address] Anion gap [Moles/Vol] 12 mmol/L 7 - 17 mmol/L [facility] Chloride [Moles/Vol] 107 mmol/L 98 - 10 8 mmol/L [facility] CO2 [Moles/Vol] 26 mmol/L 21 - 31 mmol/L [facility] Creatinine [Mass/Vol] 1.11 mg/dL 0.70 - 1.30 mg/dL [facility] eGFR, CKD-EPI, Male 80 - PINF [facility] Comment on above: Reported eGFR is bas ed on the CKD-EPI 2020 equation using creatinine, age, and sex. Glucose [Mass/Vol] 93 mg/dL 70 - 99 mg/dL [facility] Osmolality Calc [Osmolality] 295 [facility] Potassium [Moles/Vol] 3.9 mmol/L 3.5 - 5.0 mmol/L [facility] Sodium [Moles/Vol] 141 mmol/L 135 - 145 mmol/L [facility] Urea nitrogen [Mass/Vol] 15 mg/dL 7 - 25 mg/dL [facility] Urea nitrogen/Creatinine [Mass ratio] 14 mg/mg [facility] Cardiac catheterization stud yOrdered By: Kelvin Donohue on 01-21-2024 Body surface area Derived from formula 2.08 m2 [facility] Work Phone: [facility] Work Phone: Cardiac catheterization stud yon [...] with fistula occlusion Kelvin Donohue MD, MPH Architectural Inspector of Internal Medicine. Section of Advanced Heart Failure and Transplantation Division of Cardiovascular Diseases [facility] [email or web address] INVASIVE CARDIOVASCULAR PROC EDUREon 01-21-2024 INVASIVE CARDIOVASCULAR PROCEDURE Normal [facility] MAGNESIUMon 01-21-2024 Magnesium [Mass/Vol] 1.5 mg/dL Low 1.6-2.6 [facility] Comment on above: Performed By: #### M NATHANIEL BLOOM ####[facility] (DEFAULT)[address] [place] [address] Interpretation and review of laboratory results Abnormal [facility] Magnesium [Mass/Vol] 1.5 mg/dL Low 1.6 - 2 .6 mg/dL [facility] No Panel Informationon 01-21 [facility] TACROLIMUS LEVEL, TROUGH (IN E DRUG LEVEL)on 01-21-2024 Interpretation and review of laboratory results Normal [facility] Tacrolimus (Bld) [Mass/Vol] 7.2 ng/mL Bone Marrow Transplant: 4.0-12.0, Therapeutic: 5.0-15.0 [facility] Method performed is a chemiluminescent microparticle immunoasssay on the [employer] i2000. The range is based on experience at [facility] and users should be aware that target concentrations vary widely depending on concomitant therapy, time post-transplant, and desired degree of immunosuppression. [facility] Tacrolimus, Trough 7.2 ng/mL Normal Bone Susana ow Transplant: 4.0-12.0, Therapeutic: 5.0-15.0 [facility] Comment on above: Order Comment: Pleas e draw at specified interval PRIOR to dose. Do not hold dose to wait for level. Specimens batched twice per day, (M-) and once per day weekendsMethod performed is a chemiluminescent microparticle immunoasssay on the [employer] i2000.The range is based on experience at [facility] and users should be aware that target concentrations vary widely depending on concomitant therapy, time post-transplant, and desired degree of immunosuppression. Performed By: #### T ACRO ####[facility] (DEFAULT)[address] [place] [address] CBC,PLATELETSon 01-20-2024 Hematocrit (Bld) [Volume fraction] 38.9 % Low 39.6-48.8 [facility] Comment on above: Performed By: #### H EMOGC ####[facility] (DEFAULT)[address] [place] [address], [place] [address] Hemoglobin (Bld) [Mass/Vol] 12.5 g/dL Low 13.4-16.8 [facility] Comment on above: Performed By: #### H EMOGC ####[facility] (DEFAULT)[address] [place] [address], [place] [address] MCV (RBC) [Entitic vol] 87.2 fL Normal 79.0-94.5 [facility] Comment on above: Performed By: #### H EMOGC ####[facility] (DEFAULT)[address] [place] [address] Mean Cell Hgb 28.0 pg Normal 26.1-33.3 [facility] Comment on above: Performed By: #### H EMOGC ####[facility] (DEFAULT)[address] [place] [address], [place] [address] Mean Cell Hgb Conc 32.1 g/dL Normal 31.9-36.5 [facility] Comment on above: Performed By: #### H EMOGC ####[facility] (DEFAULT)[address] [place] [address] Platelet mean volume (Bld) [Entitic vol] 10.2 fL Normal 8.7-12.3 [facility] Comment on above: Performed By: #### H EMOGC ####[facility] (DEFAULT)[address] [place] [address] Platelets (Bld) [#/Vol] 166 10*3/uL Normal 146-337 [facility] Comment on above: Performed By: #### H EMO ####[facility] (DEFAULT)[address] [place] [address] RBC (Bld) [#/Vol] 4.46 10*6/uL Normal 4.38-5.83 [facility] Comment on above: Performed By: #### H EMO ####[facility] (DEFAULT)[address] [place] [address] RBC Distribution 13.8 % Normal 10.9-14.3 [facility] Comment on above: Performed By: #### [place] [facility] [place] ####[facility] (DEFAULT)[address] [place] [address] WBC (Bld) [#/Vol] 3.79 10*3/uL Normal 3.73-10.10 [facility] Comment on above: Performed By: #### [place] [facility] [place] ####[facility] (DEFAULT)[address] [place] [address] Erythrocyte distribution width (RBC) [Ratio] 13.8 % 10.9 - 14.3 % [facility] Hematocrit (Bld) [Volume fraction] 38.9 % Low 39.6 - 48.8 % [facility] Hemoglobin (Bld) [Mass/Vol] 12.5 g/dL Low 13.4 - 16.8 g/dL [facility] Interpretation and review of laboratory results Abnormal [facility] MCH (RBC) [Entitic mass] 28.0 pg 26.1 - 33.3 pg [facility] MCHC (RBC) [Mass/Vol] 32.1 g/dL 31.9 - 36.5 g/dL [facility] MCV (RBC) [Entitic vol] 87.2 fL 79.0 - 94.5 fL [facility] Platelet mean volume (Bld) [Entitic vol] 10.2 fL 8.7 - 12.3 fL [facility] Platelets (Bld) [#/Vol] 166 10*3/uL 146 - 337 K/uL [facility] RBC (Bld) [#/Vol] 4.46 10*6/uL [facility] WBC (Bld) [#/Vol] 3.79 10*3/uL 3.73 - 10. 10 K/uL [facility] CHEM 7 (LYTES,BUN,CREA,GLUC) on 01-20-2024 Anion gap [Moles/Vol] 12 mmol/L Normal 7-17 [facility] Comment on above: Performed By: #### TVAO RAMÍREZ, CHM7 ####[facility] (DEFAULT)[address] [place] [address] Chloride [Moles/Vol] 105 mmol/L Normal 98-108 [facility] Comment on above: Performed By: #### TAVO RAMÍREZ, CHM7 ####[facility] (DEFAULT)[address] [place] [address] CO2 [Moles/Vol] 28 mmol/L Normal 21-31 [facility] Comment on above: Performed By: #### TAVO RAMÍREZ, CHM7 ####[facility] (DEFAULT)[address] [place] [address] Creatinine [Mass/Vol] 1.12 mg/dL Normal 0.70-1.30 [facility] Comment on above: Performed By: #### Rod BLOOM HFP, CHM7 ####[facility] (DEFAULT)[address] [place] [address] GFR/1.73 sq M.predicted among non-blacks MDRD (S/P/Bld) [Vol rate/Area] 79 mL/min/{1.73_m2} Normal >=60 [facility] Comment on above: Result Comment: Repo rted eGFR is based on the CKD-EPI 2020 equation using creatinine, age, and sex. Performed By: #### TAVO RAMÍREZ, CHM7 ####[facility] (DEFAULT)[address] [place] [address] Glucose [Mass/Vol] 88 mg/dL Normal 70-99 [facility] Comment on above: Performed By: #### TAVO RAMÍREZ, CHM7 ####[facility] (DEFAULT)[address] [place] [address] Osmolality [Osmolality] 294 mosm/kg Normal 278-305 [facility] Comment on above: Performed By: #### TAVO RAMÍREZ, CHM7 ####[facility] (DEFAULT)[address] [place] [address] Potassium [Moles/Vol] 3.8 mmol/L Normal 3.5-5.0 [facility] Comment on above: Performed By: #### TAVO RAMÍREZ, CHM7 ####[facility] (DEFAULT)[address] [place] [address] Sodium [Moles/Vol] 141 mmol/L Normal 135-145 [facility] Comment on above: Performed By: #### TAVO RAMÍREZ, CHM7 ####[facility] (DEFAULT)[address] [place] [address] Urea nitrogen [Mass/Vol] 15 mg/dL Normal 7-25 [facility] Comment on above: Performed By: #### TAVO RAMÍREZ, CHM7 ####[facility] (DEFAULT)[address] [place] [address] Urea nitrogen/Creatinine [Mass ratio] 13 mg/mg Normal [facility] Comment on above: Performed By: #### TAVO RAMÍREZ, CHM7 ####[facility] (DEFAULT)[address] [place] [address] Anion gap [Moles/Vol] 12 mmol/L 7 - 17 mmol/L [facility] Chloride [Moles/Vol] 105 mmol/L 98 - 10 8 mmol/L [facility] CO2 [Moles/Vol] 28 mmol/L 21 - 31 mmol/L [facility] Creatinine [Mass/Vol] 1.12 mg/dL 0.70 - 1.30 mg/dL [facility] eGFR, CKD-EPI, Male 79 - PINF [facility] Comment on above: Reported eGFR is bas ed on the CKD-EPI 2020 equation using creatinine, age, and sex. Glucose [Mass/Vol] 88 mg/dL 70 - 99 mg/dL [facility] Osmolality Calc [Osmolality] 294 [facility] Potassium [Moles/Vol] 3.8 mmol/L 3.5 - 5.0 mmol/L [facility] Sodium [Moles/Vol] 141 mmol/L 135 - 145 mmol/L [facility] Urea nitrogen [Mass/Vol] 15 mg/dL 7 - 25 mg/dL [facility] Urea nitrogen/Creatinine [Mass ratio] 13 mg/mg [facility] Cardiac catheterization stud yon 01-20-2024 [facility] Radiology Study observation (narrative) [facility] Radiology Study observation (narrative) [facility] EBV BY PCR, QUANTITATIVE,BLO ODOrdered By: Charlotte Jensen on 01-20-2024 EBV DNA ESTELITA+probe (Unsp spec) [#/Vol] NINF [facility] Interpretation and review of laboratory results Normal [facility] This test was perfor med using a real time PCR assay. The dynamic range for this assay is 1000-5,000,000 IU/mL. A result <1000 IU/mL does not rule out the presence of EBV DNA in quantities below the sensitivity of this assay. This test was developed and its performance characteristics determined by [facility]. It has not been cleared or approved by the FDA. The laboratory is regulated under CLIA as qualified to perform high-complexity testing. This test is used for clinical purposes. It should not be regarded as investigational or for research. [facility] HEPATIC FUNCTION PANELon Albumin [Mass/Vol] 3.7 g/dL Normal 3.5-5.0 [facility] Comment on above: Performed By: #### M GO, HFP, CHM7 ####[facility] (DEFAULT)[address] [place] [address] ALP [Catalytic activity/Vol] 73 U/L Normal 32-126 [facility] Comment on above: Performed By: #### M GO, HFP, CHM7 ####[facility] (DEFAULT)[address] [place] [address] ALT [Catalytic activity/Vol] 12 U/L Normal 10-52 [facility] Comment on above: Performed By: #### M GO, HFP, CHM7 ####[facility] (DEFAULT)[address] [place] [address] AST [Catalytic activity/Vol] 19 U/L Normal 10-39 [facility] Comment on above: Performed By: #### M GO, HFP, CHM7 ####[facility] (DEFAULT)[address] [place] [address] Bilirubin [Mass/Vol] 2.1 mg/dL High <1.5 [facility] Comment on above: Performed By: #### M GO, HFP, CHM7 ####[facility] (DEFAULT)[address] [place] [address] Bilirubin.indirect [Mass/Vol] 0.5 mg/dL High <0.3 [facility] Comment on above: Performed By: #### M GO, HFP, CHM7 ####[facility] (DEFAULT)[address] [place] [address] Protein [Mass/Vol] 6.1 g/dL Low 6.4-8.3 [facility] Comment on above: Performed By: #### M GO, HFP, CHM7 ####[facility] (DEFAULT)[address] [place] [address] Albumin [Mass/Vol] 3.7 g/dL 3.5 - 5.0 g/dL [facility] ALP [Catalytic activity/Vol] 73 U/L 32 - 126 U/L [facility] ALT [Catalytic activity/Vol] 12 U/L 10 - 52 U/L [facility] AST [Catalytic activity/Vol] 19 U/L 10 - 39 U/L [facility] Bilirubin [Mass/Vol] 2.1 mg/dL High NINF - 1.5 mg/dL [facility] Bilirubin.direct [Mass/Vol] 0.5 mg/dL High NINF - 0.3 mg/dL [facility] Interpretation and review of laboratory results Abnormal [facility] Protein [Mass/Vol] 6.1 g/dL Low 6.4 - 8.3 g/dL [facility] ITRACONAZOLE LEVELon 024 Hydroxyitraconazole 7.6 mcg/mL Normal [facility] Comment on above: Order Comment: Dilan gregory draw level at specified interval PRIOR to dose. Result Comment: ---- REFERENCE VALUE No therapeutic range established; activity and serumconcentration are similar to parent drug. ADDITIONAL INFORMATION This test was developed and its performance characteristicsdetermined by [facility] in a manner consistent with CLIArequirements. This test has not been cleared or approved bythe U.S. Food and Drug Administration.Test Performed by:[facility] [place] [id number] Director: Rosendo Bose M.D. Ph.D.; CLIA# [id number] Performed By: #### Y ITCON ####[facility] (DEFAULT)[address] [place] [address] Itraconazole 6.0 mcg/mL Normal [facility] Comment on above: Order Comment: Pleas e draw level at specified interval PRIOR to dose. Result Comment: ---- REFERENCE VALUE-------------------------->0.5 (localized infection), >1.0 (systemic infection) Performed By: #### Y ITCON ####[facility] (DEFAULT)[address] [place] [address] MAGNESIUMon 01-20-2024 Magnesium [Mass/Vol] 1.6 mg/dL Normal 1.6-2.6 [facility] Comment on above: Performed By: #### M MERLE, [facility], CHM7 ####[facility] (DEFAULT)[address] [place] [address] Interpretation and review of laboratory results Normal [facility] Magnesium [Mass/Vol] 1.6 mg/dL 1.6 - 2 .6 mg/dL [facility] No Panel Informationon 01-20 [facility] POCT CO-OXIMETRYon Hemoglobin (Bld) [Mass/Vol] 12.8 g/dL Low 13.4 - 16.8 g/dL [facility] Interpretation and review of laboratory results Abnormal [facility] Oxyhemoglobin 69 % Low 94 - 98 % [facility] Ordering physician notified. Test performed at address of the patient encounter. [facility] Hemoglobin (Bld) [Mass/Vol] 13.3 g/dL Low 13.4 - 16.8 g/dL [facility] Interpretation and review of laboratory results Abnormal [facility] Oxyhemoglobin 69 % Low 94 - 98 % [facility] Ordering physician notified. Test performed at address of the patient encounter. [facility] PT,INR,PTTon 01-20-2024 aPTT Coag (Bld) [Time] 30.6 s Normal 24.0-34.3 [facility] Comment on above: Performed By: #### P TPTT ####[facility] (DEFAULT)[address] [facility] [place] [address] INR Coag (PPP) [Relative time] 1.2 {INR} High 0.9-1.1 [facility] Comment on above: Performed By: #### P TPTT ####[facility] (DEFAULT)[address] [facility] [place] [address] PT Coag (PPP) [Time] 15.5 s High 11.9-14.2 [facility] Comment on above: Performed By: #### P TPTT ####[facility] (DEFAULT)[address] [place] [address] aPTT Coag (PPP) [Time] 30.6 s [facility] INR Coag (Bld) [Relative time] 1.2 {INR} High 0.9 - 1.1 [facility] Interpretation and review of laboratory results Abnormal [facility] PT Coag (PPP) [Time] 15.5 s High [facility] TACROLIMUS LEVEL, TROUGH (IN E DRUG LEVEL)Ordered By: Yanira Marcum on 01-20-2024 Interpretation and review of laboratory results Normal [facility] Tacrolimus (Bld) [Mass/Vol] 7.7 ng/mL Bone Marrow Transplant: 4.0-12.0, Therapeutic: 5.0-15.0 [facility] Method performed is a chemiluminescent microparticle immunoasssay on the [employer] i2000. The range is based on experience at [facility] and users should be aware that target concentrations vary widely depending on concomitant therapy, time post-transplant, and desired degree of immunosuppression. [facility] TACROLIMUS LEVEL, TROUGH (IN E DRUG LEVEL)on 01-20-2024 Tacrolimus, Trough 7.7 ng/mL Normal Bone Susana ow Transplant: 4.0-12.0, Therapeutic: 5.0-15.0 [facility] Comment on above: Order Comment: Plejoan e draw at specified interval PRIOR to dose. Do not hold dose to wait for level. Specimens batched twice per day, (M-F) and once per day weekendsMethod performed is a chemiluminescent microparticle immunoasssay on the [employer] Catcher i2000.The range is based on experience at [facility] and users should be aware that target concentrations vary widely depending on concomitant therapy, time post-transplant, and desired degree of immunosuppression. Performed By: #### T ACRO ####[facility] (DEFAULT)[address] [place] [address] CBC,PLATELETSon 01-19-2024 Hematocrit (Bld) [Volume fraction] 37.5 % Low 39.6-48.8 [facility] Comment on above: Performed By: #### H EMOGC ####[facility] (DEFAULT)[address] [place] [address], [place] [address] Hemoglobin (Bld) [Mass/Vol] 12.1 g/dL Low 13.4-16.8 [facility] Comment on above: Performed By: #### H EMOGC ####[facility] (DEFAULT)[address] [place] [address], [place] [address] MCV (RBC) [Entitic vol] 87.8 fL Normal 79.0-94.5 [facility] Comment on above: Performed By: #### H EMOGC ####[facility] (DEFAULT)[address] [place] [address] Mean Cell Hgb 28.3 pg Normal 26.1-33.3 [facility] Comment on above: Performed By: #### H EMOGC ####[facility] (DEFAULT)[address] [place] [address] Mean Cell Hgb Conc 32.3 g/dL Normal 31.9-36.5 [facility] Comment on above: Performed By: #### H EMOGC ####[facility] (DEFAULT)[address] [place] [address] Platelet mean volume (Bld) [Entitic vol] 10.4 fL Normal 8.7-12.3 [facility] Comment on above: Performed By: #### H EMO ####[facility] (DEFAULT)[address] [facility] [place] [address] Platelets (Bld) [#/Vol] 163 10*3/uL Normal 146-337 [facility] Comment on above: Performed By: #### H EMO ####[facility] (DEFAULT)[address] [place] [address] RBC (Bld) [#/Vol] 4.27 10*6/uL Low 4.38-5.83 [facility] Comment on above: Performed By: #### H EMO ####[facility] (DEFAULT)[address] [place] [address] RBC Distribution 13.9 % Normal 10.9-14.3 [facility] Comment on above: Performed By: #### H EMO ####[facility] (DEFAULT)[address] [place] [address] WBC (Bld) [#/Vol] 3.69 10*3/uL Low 3.73-10.10 [facility] Comment on above: Performed By: #### H EMO ####[facility] (DEFAULT)[address] [place] [address] Erythrocyte distribution width (RBC) [Ratio] 13.9 % 10.9 - 14.3 % [facility] Hematocrit (Bld) [Volume fraction] 37.5 % Low 39.6 - 48.8 % [facility] Hemoglobin (Bld) [Mass/Vol] 12.1 g/dL Low 13.4 - 16.8 g/dL [facility] [...] vol] 10.4 fL 8.7 - 12.3 fL [facility] Platelets (Bld) [#/Vol] 163 10*3/uL 146 - 337 K/uL [facility] RBC (Bld) [#/Vol] 4.27 10*6/uL Low [facility] WBC (Bld) [#/Vol] 3.69 10*3/uL Low 3.73 - 10. 10 K/uL [facility] CHEM 7 (LYTES,BUN,CREA,GLUC) on 01-19-2024 Anion gap [Moles/Vol] 14 mmol/L Normal 7-17 [facility] Comment on above: Performed By: #### NATHANIEL RAMÍREZ ####[facility] (DEFAULT)[address] [place] [address] Chloride [Moles/Vol] 106 mmol/L Normal 98-108 [facility] Comment on above: Performed By: #### NATHANIEL RAMÍREZ ####[facility] (DEFAULT)[address] [place] [address] CO2 [Moles/Vol] 24 mmol/L Normal 21-31 [facility] Comment on above: Performed By: #### TJ RAMÍREZ7 ####[facility] (DEFAULT)[address] [place] [address] Creatinine [Mass/Vol] 1.13 mg/dL Normal 0.70-1.30 [facility] Comment on above: Performed By: #### TJ RAMÍREZ7 ####[facility] (DEFAULT)[address] [place] [address] GFR/1.73 sq M.predicted among non-blacks MDRD (S/P/Bld) [Vol rate/Area] 78 mL/min/{1.73_m2} Normal >=60 [facility] Comment on above: Result Comment: Repo rted eGFR is based on the CKD-EPI 2020 equation using creatinine, age, and sex. Performed By: #### Rod BLOOM CHM7 ####[facility] (DEFAULT)[address] [place] [address] Glucose [Mass/Vol] 86 mg/dL Normal 70-99 [facility] Comment on above: Performed By: #### TJ RAMÍREZ7 ####[facility] (DEFAULT)[address] [place] [address] Osmolality [Osmolality] 293 mosm/kg Normal 278-305 [facility] Comment on above: Performed By: #### Rod BLOOM CHM7 ####[facility] (DEFAULT)[address] [place] [address] Potassium [Moles/Vol] 3.8 mmol/L Normal 3.5-5.0 [facility] Comment on above: Performed By: #### Rod BLOOM CHM7 ####[facility] (DEFAULT)[address] [place] [address] Sodium [Moles/Vol] 140 mmol/L Normal 135-145 [facility] Comment on above: Performed By: #### Rod BLOOM CHM7 ####[facility] (DEFAULT)[address] [place] [address] Urea nitrogen [Mass/Vol] 16 mg/dL Normal 7-25 [facility] Comment on above: Performed By: #### Rod BLOOM CHM7 ####[facility] (DEFAULT)[address] [place] [address] Urea nitrogen/Creatinine [Mass ratio] 14 mg/mg Normal [facility] Comment on above: Performed By: #### Rod BLOOM CHM7 ####[facility] (DEFAULT)[address] [place] [address] Anion gap [Moles/Vol] 14 mmol/L 7 - 17 mmol/L [facility] Chloride [Moles/Vol] 106 mmol/L 98 - 10 8 mmol/L [facility] CO2 [Moles/Vol] 24 mmol/L 21 - 31 mmol/L [facility] Creatinine [Mass/Vol] 1.13 mg/dL 0.70 - 1.30 mg/dL [facility] eGFR, CKD-EPI, Male 78 - PINF [facility] Comment on above: Reported eGFR is bas ed on the CKD-EPI 2020 equation using creatinine, age, and sex. Glucose [Mass/Vol] 86 mg/dL 70 - 99 mg/dL [facility] Osmolality Calc [Osmolality] 293 [facility] Potassium [Moles/Vol] 3.8 mmol/L 3.5 - 5.0 mmol/L [facility] Sodium [Moles/Vol] 140 mmol/L 135 - 145 mmol/L [facility] Urea nitrogen [Mass/Vol] 16 mg/dL 7 - 25 mg/dL [facility] Urea nitrogen/Creatinine [Mass ratio] 14 mg/mg [facility] EBV BY PCR, QUANTITATIVE,BRANDIN ODandrzej 01-19-2024 Ebv By Pcr, Quant, Blood <1000 Normal <1000 [facility] Comment on above: Order Comment: This test was performed using a real time PCR assay. The dynamic range for this assay is 1000-5,000,000 IU/mL. A result <1000 IU/mL does not rule out the presence of EBV DNA in quantities below the sensitivity of this assay. This test was developed and its performance characteristics determined by [facility] at [facility]. It has not been cleared or approved by the FDA. The laboratory is regulated under CLIA as qualified to perform high-complexity testing. This test is used for clinical purposes. It should not be regarded as investigational or for research. Performed By: #### E BVPCR ####[facility] (DEFAULT)[address] [place] [address] HISTOPLASMA AND BLASTOMYCES ANTIGEN, ENZYME IMMUNOASSAY, SERMon 01-19-2024 Histoplasma/Blastomy antonia Ag Result Not detected Not Detected [facility] Comment on above: No antigen from Hist oplasma or Blastomyces detected. False negative results may occur depending on extent of disease, and/or site of infection. Repeat testing on a new specimen if clinically indicated. Histoplasma/Blastomy antonia Ag Value Not detected ng/mL [facility] Comment on above: ADDITIONAL INFORMATION This test was developed and its performance characteristics determined by [facility] in a manner consistent with CLIA requirements. This test has not been cleared or approved by the U.S. Food and Drug Administration. Test Performed by: [facility] - [address] [address] Director Learning And Development: Rosendo Bose M.D. Ph.D.; CLIA# [id number] [facility] MAGNESIUMon 01-19-2024 Magnesium [Mass/Vol] 1.8 mg/dL Normal 1.6-2.6 [facility] Comment on above: Performed By: #### M [facility] ####[facility] (DEFAULT)[address] [place] [address] Interpretation and review of laboratory results Normal [facility] Magnesium [Mass/Vol] 1.8 mg/dL 1.6 - 2 .6 mg/dL [facility] No Panel Informationon 01-19 [facility] TACROLIMUS LEVEL, TROUGH (IN E DRUG LEVEL)Ordered By: Raymundo Mehta on 01-19-2024 Interpretation and review of laboratory results Normal [facility] Tacrolimus (Bld) [Mass/Vol] 6.8 ng/mL Bone Marrow Transplant: 4.0-12.0, Therapeutic: 5.0-15.0 [facility] Method performed is a chemiluminescent microparticle immunoasssay on the Spaces 2 Host Brick Catcher i2000. The range is based on experience at [facility] and users should be aware that target concentrations vary widely depending on concomitant therapy, time post-transplant, and desired degree of immunosuppression. [facility] TACROLIMUS LEVEL, TROUGH (IN E DRUG LEVEL)on 01-19-2024 Tacrolimus, Trough 6.8 ng/mL Normal Bone Susana ow Transplant: 4.0-12.0, Therapeutic: 5.0-15.0 [facility] Comment on above: Order Comment: Pleas e draw at specified interval PRIOR to dose. Do not hold dose to wait for level. Specimens batched twice per day, (M-F) and once per day weekendsMethod performed is a chemiluminescent microparticle immunoasssay on the Spaces 2 Host Brick Catcher i2000.The range is based on experience at [facility] and users should be aware that target concentrations vary widely depending on concomitant therapy, time post-transplant, and desired degree of immunosuppression. Performed By: #### T ACRO ####[facility] (DEFAULT)[address] [place] [address] US AV fistulaOrdered By: Diana Reyes on 01-19-2024 [facility] Work Phone: US AV fistulaon 01-19-2024 Radiology Study observation (narrative) [facility] AFP TUMOR MARKEROrdered By: Francisca Alaniz on 01-18-2024 AFP.tumor marker [Mass/Vol] ng/mL NINF - 8.1 ng/mL [facility] Comment on above: This test was perfor med on the [employer] IM Immunoassay platform by Siemens which is a two-site sandwich chemiluminescent immunoassay. It is important to note that assays using different manufacturers and/or methods may not be comparable. Interpretation and review of laboratory results Normal [facility] CBC,PLATELETSon 01-18-2024 Hematocrit (Bld) [Volume fraction] 38.4 % Low 39.6-48.8 [facility] Comment on above: Performed By: #### [place] [facility] [place] ####[facility] (DEFAULT)[address] [place] [address] Hemoglobin (Bld) [Mass/Vol] 12.1 g/dL Low 13.4-16.8 [facility] Comment on above: Performed By: #### [facility] [place] ####[facility] (DEFAULT)[address] [place] [address] MCV (RBC) [Entitic vol] 88.3 fL Normal 79.0-94.5 [facility] Comment on above: Performed By: #### H EMOGC ####[facility] (DEFAULT)[address] [place] [address] Mean Cell Hgb 27.8 pg Normal 26.1-33.3 [facility] Comment on above: Performed By: #### H EMOGC ####[facility] (DEFAULT)[address] [place] [address] Mean Cell Hgb Conc 31.5 g/dL Low 31.9-36.5 [facility] Comment on above: Performed By: #### H EMOGC ####[facility] (DEFAULT)[address] [place] [address] Platelet mean volume (Bld) [Entitic vol] 10.4 fL Normal 8.7-12.3 [facility] Comment on above: Performed By: #### H EMOGC ####[facility] (DEFAULT)[address] [place] [address] Platelets (Bld) [#/Vol] 183 10*3/uL Normal 146-337 [facility] Comment on above: Performed By: #### H EMOGC ####[facility] (DEFAULT)[address] [place] [address] RBC (Bld) [#/Vol] 4.35 10*6/uL Low 4.38-5.83 [facility] Comment on above: Performed By: #### H EMOGC ####[facility] (DEFAULT)[address] [place] [address] RBC Distribution 13.9 % Normal 10.9-14.3 [facility] Comment on above: Performed By: #### H EMOGC ####[facility] (DEFAULT)[address] [place] [address] WBC (Bld) [#/Vol] 3.66 10*3/uL Low 3.73-10.10 [facility] Comment on above: Performed By: #### [facility] [place] ####[facility] (DEFAULT)[address] [place] [address] Erythrocyte distribution width (RBC) [Ratio] 13.9 % 10.9 - 14.3 % [facility] Hematocrit (Bld) [Volume fraction] 38.4 % Low 39.6 - 48.8 % [facility] Hemoglobin (Bld) [Mass/Vol] 12.1 g/dL Low 13.4 - 16.8 g/dL [facility] Interpretation and review of laboratory results Abnormal [facility] MCH (RBC) [Entitic mass] 27.8 pg 26.1 - 33.3 pg [facility] MCHC (RBC) [Mass/Vol] 31.5 g/dL Low 31.9 - 36.5 g/dL [facility] MCV (RBC) [Entitic vol] 88.3 fL 79.0 - 94.5 fL [facility] Platelet mean volume (Bld) [Entitic vol] 10.4 fL 8.7 - 12.3 fL [facility] Platelets (Bld) [#/Vol] 183 10*3/uL 146 - 337 K/uL [facility] RBC (Bld) [#/Vol] 4.35 10*6/uL Low [facility] WBC (Bld) [#/Vol] 3.66 10*3/uL Low 3.73 - 10. 10 K/uL [facility] CHEM 7 (LYTES,BUN,CREA,GLUC) on 01-18-2024 Anion gap [Moles/Vol] 11 mmol/L Normal 7-17 [facility] Comment on above: Performed By: #### C HM7, HFP, MGO, TSHQR ####[facility] (DEFAULT)[address] [place] [address] Chloride [Moles/Vol] 108 mmol/L Normal 98-108 [facility] Comment on above: Performed By: #### C HM7, HFP, MGO, TSHQR ####[facility] (DEFAULT)[address] [place] [address] CO2 [Moles/Vol] 26 mmol/L Normal 21-31 [facility] Comment on above: Performed By: #### C HM7, HFP, MGO, TSHQR ####[facility] (DEFAULT)[address] [place] [address] Creatinine [Mass/Vol] 1.00 mg/dL Normal 0.70-1.30 [facility] Comment on above: Performed By: #### C HM7, HFP, MGO, TSHQR ####[facility] (DEFAULT)[address] [facility] [place] [address] eGFR, CKD-EPI, Male > Normal >=60 [facility] Comment on above: Result Comment: Repo rted eGFR is based on the CKD-EPI 2020 equation using creatinine, age, and sex. Performed By: #### C HM7, HFP, MGO, TSHQR ####[facility] (DEFAULT)[address] [place] [address] Glucose [Mass/Vol] 89 mg/dL Normal 70-99 [facility] Comment on above: Performed By: #### C HM7, HFP, MGO, TSHQR ####[facility] (DEFAULT)[address] [place] [address] Osmolality [Osmolality] 295 mosm/kg Normal 278-305 [facility] Comment on above: Performed By: #### C HM7, HFP, MGO, TSHQR ####[facility] (DEFAULT)[address] [place] [address] Potassium [Moles/Vol] 3.9 mmol/L Normal 3.5-5.0 [facility] Comment on above: Performed By: #### C HM7, HFP, MGO, TSHQR ####[facility] (DEFAULT)[address] [place] [address] Sodium [Moles/Vol] 141 mmol/L Normal 135-145 [facility] Comment on above: Performed By: #### C HM7, HFP, MGO, TSHQR ####[facility] (DEFAULT)[address] [place] [address] Urea nitrogen [Mass/Vol] 16 mg/dL Normal 7-25 [facility] Comment on above: Performed By: #### C HM7, HFP, MGO, TSHQR ####[facility] (DEFAULT)[address] [facility] [place] [address] Urea nitrogen/Creatinine [Mass ratio] 16 mg/mg Normal [facility] Comment on above: Performed By: #### C HM7, HFP, MGO, TSHQR ####[facility] (DEFAULT)[address] [facility] [place] [address] Anion gap [Moles/Vol] 11 mmol/L 7 - 17 mmol/L [facility] Chloride [Moles/Vol] 108 mmol/L 98 - 10 8 mmol/L [facility] CO2 [Moles/Vol] 26 mmol/L 21 - 31 mmol/L [facility] Creatinine [Mass/Vol] 1.00 mg/dL 0.70 - 1.30 mg/dL [facility] eGFR, CKD-EPI, Male - PINF [facility] Comment on above: Reported eGFR is bas ed on the CKD-EPI 2020 equation using creatinine, age, and sex. Glucose [Mass/Vol] 89 mg/dL 70 - 99 mg/dL [facility] Osmolality Calc [Osmolality] 295 [facility] Potassium [Moles/Vol] 3.9 mmol/L 3.5 - 5.0 mmol/L [facility] Sodium [Moles/Vol] 141 mmol/L 135 - 145 mmol/L [facility] Urea nitrogen [Mass/Vol] 16 mg/dL 7 - 25 mg/dL [facility] Urea nitrogen/Creatinine [Mass ratio] 16 mg/mg [facility] Cardiac echo study Procedure Ordered By: Gian Carlos on 01-18-2024 [facility].63 [facility] Work Phone: [phone] Ao peak meliton 1.46 m/s [facility] Work Phone: [phone] Ao SOV index 1.56 cm/m2 [facility] Work Phone: [phone] Ao STJ index 1.25 cm/m2 [facility] Work Phone: [phone] [facility]o VTI 35.74 [facility] Work Phone: [phone] Ascending aorta 3.39 cm [facility] Work Phone: [phone] AV LVOT peak gradient 4 mmHg [facility] Work Phone: [phone] AV mean gradient 5 mmHg [facility] Work Phone: [phone] [facility] Work Phone: [phone] AV valve area 3.09 cm2 [facility] Work Phone: [phone] AV Velocity [facility] 0.73 [facility] Phone: [phone] VEGA (continuity Vmax) 3.01 cm2 [facility] Work Phone: [phone] VEGA (continuity VTI) 3.09 cm2 [facility] Work Phone: [phone] VEGA index (continuity Vmax) 1.45 m/s [facility] Work Phone: [phone] VEGA index (continuity VTI) 1.49 cm2/m2 [facility] Work Phone: Avg e' pk meliton 0.07 m/s [facility] Work Phone: Avg E/e' ratio 19.45 [facility] Work Phone: Body surface area Derived from formula 2.08 m2 [facility] Work Phone: BP EF 62 % [facility] Work Phone: DI (Vmax) 0.73 [facility] Work Phone: DI (VTI) 0.74 m/2 [facility] Work Phone: E wave decelartion time 180.38 msec [facility] Work Phone: e' lateral pk meliton 0.0789 m/s [facility]: e' lateral pk meliton 0.08 m/s [facility] Work Phone: e' septal pk meliton 0.0653 m/s [facility] Work Phone: e' septal pk meliton 0.07 m/s [facility] Work [facility]: E[facility]A ratio 2.67 [facility]: E[facility]e' lateral [facility] 17.62 [facility]: E/e' septal ratio 21.29 [facility] Work Phone: EF SP 2CH 66 [facility] Work Phone: EF SP 4CH 58 [facility] Work Phone: FS 28 % 28 - 44 % [facility] Work Phone: IVC ostium 2.30 cm [facility] Work Phone: IVS 1.11 cm [facility] Work Phone: LA AREA 2CH 24.36 cm2 [facility] Work Phone: LA area 4CH 20.36 cm2 [facility] Work Phone: [phone] LA ESV BP (MOD) 64 mL [facility] Work Phone: LA ESV BP (MOD) index 31 mL/m2 [facility] Work Phone: LA ESV SP 2CH (MOD) 76 mL [facility] Work Phone: LA ESV SP 4CH (MOD) 53 mL [facility] Work Phone: LV EDV BP 180 [facility] Work Phone: LV EDV SP 2CH 190 mL [facility] Work Phone: LV EDV SP 4CH 166 mL [facility] Work Phone: LV ESV BP 69 mL [facility] Work Phone: LV ESV SP 2CH 65 mL [facility] Work Phone: LV ESV SP 4CH 70 mL [facility] Work Phone: LV mass 254.73 g [facility] Work Phone: LV Mass Index 122.5 g/m2 [facility] Work Phone: [phone] LV RWT 0.42 [facility] Work Phone: LV stroke volume BP (ml) 111 mL [facility] Work Phone: LV stroke volume index BP 53.37 mL/m2 [facility] Work Phone: [phone] LVIDD 5.53 cm [facility] Work Phone: [phone] LVIDS 3.97 cm [facility] Work Phone: [phone] LVOT area 4.15 cm2 [facility] Work Phone: [phone] LVOT diameter 2.30 cm [facility] Work Phone: [phone] LVOT peak meliton 1.06 m/s [facility] Work Phone: [phone] LVOT peak VTI 26.61 cm [facility] Work Phone: LVOT stroke volume 111 cm3 [facility] Work Phone: [phone] LVOT stroke volume index 53.13 ml/m2 [facility] Work Phone: Mr max meliton 4.21 m/s [facility] Work Phone: MR VTI 134.50 cm [facility] Work Phone: [phone] MV mean gradient 3 mmHg [facility] Work Phone: [phone] MV peak gradient 11 mmHg [facility] Work Phone: [phone] MV pk A meliton 0.52 m/s [facility] Work Phone: [phone] MV pk E meliton 1.39 m/s [facility] Work Phone: MV stenosis pressure 1/2 time 58.56 ms [facility] Work Phone: [phone] MV valve area by continuity eq 2.93 cm2 [facility] Work Phone: [phone] MV valve area p 1/2 method 3.76 cm2 [facility] Work Phone: MV VTI 37.70 [facility] Work Phone: MVA (continuity VTI) 2.92 cm [facility] Work Phone: [facility] AV VTI RATIO PRE STRESS 0.74 [facility] Work Phone: [facility] ECHO LV BIPLANE SYSTOLIC VOLUME INDEX 33.17 mL/m2 [facility] Work Phone: [facility] ECHO LV BP DIASTOLIC VOLUME INDEX 86.54 mL/m2 [facility] Work Phone: [facility] ECHO MR PEAK GRADIENT 70.94 mmHg [facility] Work Phone: PW 1.16 cm [facility] Work Phone: RA area 4CH (MOD) 14.50 cm2 [facility] Work Phone: RA vol index 4CH (MOD) 18.27 mL/m2 [facility] Work Phone: Right atrium volume 4 chamber method of disks 38 mL [facility] Work Phone: RV Area diastolic 33.20 cm2 [facility] Work Phone: RV Area systolic 21.30 cm2 [facility] Work Phone: RV basal diam 4.52 cm [facility] Work Phone: RV Fractional area change 35.8 % [facility] Work Phone: RV long diam 8.96 cm [facility] Work Phone: RV mid diam 3.70 cm [facility] Work Phone: RV S' 22.01 cm/s [facility] Work Phone: RVOT peak gradient 4 mmHg [facility] Work Phone: RVOT peak meliton 0.96 m/s [facility] Work Phone: RVOT peak VTI 20.86 cm [facility] Work Phone: Sinus 3.24 cm [facility] Work Phone: STJ 2.61 cm [facility] Work Phone: Stroke Volume 111 cm/mL [facility] Work Phone: Stroke volume index [facility] Work Phone: TAPSE 2.19 cm [facility] Work Phone: [facility] Work Phone: Cardiac echo study Procedure [...] study was performed. Imaging system used: [employer]. Indications Indications for study: shortness of breath. [facility] Radiology Study observation (narrative) [facility] HEPATIC FUNCTION PANELon Albumin [Mass/Vol] 3.5 g/dL Normal 3.5-5.0 [facility] Comment on above: Performed By: #### C HM7, HFP, MGO, TSHQR ####[facility] (DEFAULT)[address] [place] [address] ALP [Catalytic activity/Vol] 70 U/L Normal 32-126 [facility] Comment on above: Performed By: #### C HM7, HFP, MGO, TSHQR ####[facility] (DEFAULT)[address] [place] [address] ALT [Catalytic activity/Vol] 8 U/L Low 10-52 [facility] Comment on above: Performed By: #### C HM7, HFP, MGO, TSHQR ####[facility] (DEFAULT)[address] [place] [address] AST [Catalytic activity/Vol] 20 U/L Normal 10-39 [facility] Comment on above: Performed By: #### C HM7, HFP, MGO, TSHQR ####[facility] (DEFAULT)[address] [place] [address] Bilirubin [Mass/Vol] 1.7 mg/dL High <1.5 [facility] Comment on above: Performed By: #### C HM7, HFP, MGO, TSHQR ####[facility] (DEFAULT)[address] [place] [address] Bilirubin.indirect [Mass/Vol] 0.4 mg/dL High <0.3 [facility] Comment on above: Performed By: #### C HM7, HFP, MGO, TSHQR ####[facility] (DEFAULT)[address] [place] [address] Protein [Mass/Vol] 6.0 g/dL Low 6.4-8.3 [facility] Comment on above: Performed By: #### C HM7, HFP, MGO, TSHQR ####[facility] (DEFAULT)[address] [place] [address] Albumin [Mass/Vol] 3.5 g/dL 3.5 - 5.0 g/dL [facility] ALP [Catalytic activity/Vol] 70 U/L 32 - 126 U/L [facility] ALT [Catalytic activity/Vol] 8 U/L Low 10 - 52 U/L [facility] AST [Catalytic activity/Vol] 20 U/L 10 - 39 U/L [facility] Bilirubin [Mass/Vol] 1.7 mg/dL High NINF - 1.5 mg/dL [facility] Bilirubin.direct [Mass/Vol] 0.4 mg/dL High NINF - 0.3 mg/dL [facility] Protein [Mass/Vol] 6.0 g/dL Low 6.4 - 8.3 g/dL [facility] MAGNESIUMon 01-18-2024 Magnesium [Mass/Vol] 1.5 mg/dL Low 1.6-2.6 [facility] Comment on above: Performed By: #### C HM7, HFP, MGO, TSHQR ####[facility] (DEFAULT)[address] [place] [address] Magnesium [Mass/Vol] 1.5 mg/dL Low 1.6 - 2 .6 mg/dL [facility] No Panel Informationon 01-18 Interpretation and review of laboratory results Abnormal [facility] PT,INR,PTTon 01-18-2024 aPTT Coag (Bld) [Time] 30.0 s Normal 24.0-34.3 [facility] Comment on above: Performed By: #### P TPTT ####[facility] (DEFAULT)[address] [facility] [place] [address] INR Coag (PPP) [Relative time] 1.1 {INR} Normal 0.9-1.1 [facility] Comment on above: Performed By: #### P TPTT ####[facility] (DEFAULT)[address] [place] [address] PT Coag (PPP) [Time] 14.5 s High 11.9-14.2 [facility] Comment on above: Performed By: #### P TPTT ####[facility] (DEFAULT)[address] [place] [address] aPTT Coag (PPP) [Time] 30.0 s [facility] INR Coag (Bld) [Relative time] 1.1 {INR} 0.9 - 1.1 [facility] Interpretation and review of laboratory results Abnormal [facility] PT Coag (PPP) [Time] 14.5 s High [facility] TSH W/FT4 REFLEXon 4 Interpretation and review of laboratory results Normal [facility] TSH Qn 2.660 m[IU]/L [facility] TSH 2.660 uIU/mL Normal 0.550-4.780 [facility] Comment on above: Performed By: #### C HM7, HFP, MGO, TSHQR ####[facility] (DEFAULT)[address] [place] [address] AFP TUMOR MARKERon 4 AFP Tumor Marker <2.2 Normal <8.1 [facility] Comment on above: Result Comment: This test was performed on the [employer] Immunoassay platform by [employer] which is a two-site sandwich chemiluminescent immunoassay. It is important to note that assays using different manufacturers and/or methods may not be comparable. Performed By: #### A FPTMR ####[facility] (DEFAULT)[address] [place] [address], [place] [address] DARYL AURIS SCREEN BY PCRO rdered By: Mynor Alejandro on 01-17-2024 Daryl auris Screen by PCR Not detected Not Detected [facility] Interpretation and review of laboratory results Normal [facility] This test was perfor med using a real-time PCR assay. This test was developed, and its performance characteristics determined by [facility] at [facility]. It has not been cleared or approved by the FDA. The laboratory is regulated under CLIA as qualified to perform high-complexity testing. This test is used for clinical purposes. It should not be regarded as investigational or for research. [facility] CBC,PLATELETSon 01-17-2024 Hematocrit (Bld) [Volume fraction] 37.2 % Low 39.6-48.8 [facility] Comment on above: Performed By: #### [facility] [place] ####[facility] (DEFAULT)[address] [place] [address] Hemoglobin (Bld) [Mass/Vol] 12.0 g/dL Low 13.4-16.8 [facility] Comment on above: Performed By: #### [facility] [place] ####[facility] (DEFAULT)[address] [place] [address] MCV (RBC) [Entitic vol] 86.5 fL Normal 79.0-94.5 [facility] Comment on above: Performed By: #### [facility] [place] ####[facility] (DEFAULT)[address] [place] [address], [place] [address] Mean Cell Hgb 27.9 pg Normal 26.1-33.3 [facility] Comment on above: Performed By: #### [facility] [place] ####[facility] (DEFAULT)[address] [facility] [place] [address] Mean Cell Hgb Conc 32.3 g/dL Normal 31.9-36.5 [facility] Comment on above: Performed By: #### H EMO ####[facility] (DEFAULT)[address] [place] [address] Platelet mean volume (Bld) [Entitic vol] 10.5 fL Normal 8.7-12.3 [facility] Comment on above: Performed By: #### H EMO ####[facility] (DEFAULT)[address] [place] [address] Platelets (Bld) [#/Vol] 159 10*3/uL Normal 146-337 [facility] Comment on above: Performed By: #### H EMO ####[facility] (DEFAULT)[address] [place] [address] RBC (Bld) [#/Vol] 4.30 10*6/uL Low 4.38-5.83 [facility] Comment on above: Performed By: #### H EMO ####[facility] (DEFAULT)[address] [place] [address] RBC Distribution 14.0 % Normal 10.9-14.3 [facility] Comment on above: Performed By: #### H EMO ####[facility] (DEFAULT)[address] [place] [address] WBC (Bld) [#/Vol] 3.69 10*3/uL Low 3.73-10.10 [facility] Comment on above: Performed By: #### H EMO ####[facility] (DEFAULT)[address] [place] [address] Erythrocyte distribution width (RBC) [Ratio] 14.0 % 10.9 - 14.3 % [facility] Hematocrit (Bld) [Volume fraction] 37.2 % Low 39.6 - 48.8 % [facility]enan [...] fL [facility] Platelets (Bld) [#/Vol] 159 10*3/uL 146 - 337 K/uL [facility] RBC (Bld) [#/Vol] 4.30 10*6/uL Low [facility] WBC (Bld) [#/Vol] 3.69 10*3/uL Low 3.73 - 10. 10 K/uL [facility] CHEM 7 (LYTES,BUN,CREA,GLUC) on 01-17-2024 Anion gap [Moles/Vol] 13 mmol/L Normal 7-17 [facility] Comment on above: Performed By: #### C HM7, HFP, MGO ####[facility] (DEFAULT)[address] [place] [address] Chloride [Moles/Vol] 109 mmol/L High 98-108 [facility] Comment on above: Performed By: #### C HM7, HFP, MGO ####[facility] (DEFAULT)[address] [place] [address] CO2 [Moles/Vol] 21 mmol/L Normal 21-31 [facility] Comment on above: Performed By: #### C HM7, HFP, MGO ####[facility] (DEFAULT)[address] [place] [address] Creatinine [Mass/Vol] 1.04 mg/dL Normal 0.70-1.30 [facility] [facility] Comment on above: Performed By: #### Chinedu HM7, HFP, MGO ####[facility] (DEFAULT)[address] [place] [address] GFR/1.73 sq M.predicted among non-blacks MDRD (S/P/Bld) [Vol rate/Area] 86 mL/min/{1.73_m2} Normal >=60 [facility] Comment on above: Result Comment: Repo rted eGFR is based on the CKD-EPI 2020 equation using creatinine, age, and sex. Performed By: #### C HM7, HFP, MGO ####[facility] (DEFAULT)[address] [place] [address] Glucose [Mass/Vol] 82 mg/dL Normal 70-99 [facility] Comment on above: Performed By: #### C HM7, HFP, MGO ####[facility] (DEFAULT)[address] [facility] [place] [address] Osmolality [Osmolality] 292 mosm/kg Normal 278-305 [facility] Comment on above: Performed By: #### C HM7, HFP, MGO ####[facility] (DEFAULT)[address] [place] [address] Potassium [Moles/Vol] 4.4 mmol/L Normal 3.5-5.0 [facility] Comment on above: Performed By: #### C HM7, HFP, MGO ####[facility] (DEFAULT)[address] [place] [address] Sodium [Moles/Vol] 139 mmol/L Normal 135-145 [facility] Comment on above: Performed By: #### C HM7, HFP, MGO ####[facility] (DEFAULT)[address] [place] [address] Urea nitrogen [Mass/Vol] 17 mg/dL Normal 7-25 [facility] Comment on above: Performed By: #### C HM7, HFP, MGO ####[facility] (DEFAULT)[address] [place] [address] Urea nitrogen/Creatinine [Mass ratio] 16 mg/mg Normal [facility] Comment on above: Performed By: #### C HM7, [facility], MGO ####[facility] (DEFAULT)[address] [place] [address] Anion gap [Moles/Vol] 13 mmol/L 7 - 17 [facility] Chloride [Moles/Vol] 109 mmol/L High 98 - 10 8 mmol[facility]L [facility] CO2 [Moles/Vol] 21 mmol/L 21 - 31 mmol/L [facility] Creatinine [Mass/Vol] 1.04 mg/dL 0.70 - 1.30 mg/dL [facility] eGFR, CKD-EPI, Male 86 - PINF [facility] Comment on above: Reported eGFR is bas ed on the CKD-EPI 2020 equation using creatinine, age, and sex. Glucose [Mass/Vol] 82 mg/dL 70 - 99 mg/dL [facility] Osmolality Calc [Osmolality] 292 [facility] Potassium [Moles/Vol] 4.4 mmol/L 3.5 - 5.0 mmol/L [facility] Sodium [Moles/Vol] 139 mmol/L 135 - 145 mmol[facility] Urea nitrogen [Mass/Vol] 17 mg/dL 7 - 25 mg/dL [facility] Urea nitrogen/Creatinine [Mass ratio] 16 mg[facility] ABDOMEN/PELVIS WITHOUT CO NTRASTon 01-17-2024 CT ABDOMEN/PELVIS WITHOUT CONTRAST Normal [facility] CT Abdomen and Pelvis WO [...] unremarkable. Kidneys: Severe atrophy of the bilateral [place] kidney is without hydronephrosis. Right lower quadrant [...] unremarkable. Kidneys: Severe atrophy of the bilateral [place] kidney is without hydronephrosis. Right lower quadrant [...] the middle lobe. Trace left pleural effusion. [facility] Radiology Study observation (narrative) [facility] HEPATIC FUNCTION PANELon Albumin [Mass/Vol] 3.5 g/dL Normal 3.5-5.0 [facility] Comment on above: Performed By: #### C HM7, HFP, MGO ####[facility] (DEFAULT)[address] [place] [address] ALP [Catalytic activity/Vol] 73 U/L Normal 32-126 [facility] Comment on above: Performed By: #### C HM7, HFP, MGO ####[facility] (DEFAULT)[address] [facility] [place] [address] ALT [Catalytic activity/Vol] 7 U/L Low 10-52 [facility] Comment on above: Performed By: #### Chinedu HM7, HFP, MGO ####[facility] (DEFAULT)[address] [facility] [place] [address] AST [Catalytic activity/Vol] 25 U/L Normal 10-39 [facility] Comment on above: Performed By: #### C HM7, HFP, MGO ####[facility] (DEFAULT)[address] [place] [address] Bilirubin [Mass/Vol] 1.8 mg/dL High <1.5 [facility] Comment on above: Performed By: #### C HM7, HFP, MGO ####[facility] (DEFAULT)[address] [place] [address] Bilirubin.indirect [Mass/Vol] 0.3 mg/dL High <0.3 [facility] Comment on above: Performed By: #### C HM7, HFP, MGO ####[facility] (DEFAULT)[address] [place] [address] Protein [Mass/Vol] 6.0 g/dL Low 6.4-8.3 [facility] Comment on above: Performed By: #### C HM7, HFP, MGO ####[facility] (DEFAULT)[address] [facility] [place] [address] Albumin [Mass/Vol] 3.5 g/dL 3.5 - 5.0 g/dL [facility] ALP [Catalytic activity/Vol] 73 U/L 32 - 126 U/L [facility] ALT [Catalytic activity/Vol] 7 U/L Low 10 - 52 U/L [facility] AST [Catalytic activity/Vol] 25 U/L 10 - 39 U/L [facility] Bilirubin [Mass/Vol] 1.8 mg/dL High [facility] - 1.[facility] mg/dL [facility] Bilirubin.direct [Mass/Vol] 0.3 mg/dL High NINF - 0.3 mg/dL [facility] Protein [Mass/Vol] 6.0 g/dL Low 6.4 - 8.3 g/dL [facility] HISTOPLASMA AND BLASTOMYCES ANTIGEN, ENZYME IMMUNOASSAY, SERMon 01-17-2024 Histoplasma/Blastomy antonia Ag Result Not detected Normal Not Detected [facility] Comment on above: Result Comment: No a ntigen from Histoplasma or Blastomyces detected. Falsenegative results may occur depending on extent of disease,and/or site of infection. Repeat testing on a new specimenif clinically indicated. Performed By: #### H IBAG ####[facility] (DEFAULT)[address] [place] [address] Histoplasma/Blastomy antonia Ag Value Not detected Normal [facility] Comment on above: Result Comment: ---- ADDITIONAL INFORMATION This test was developed and its performance characteristicsdetermined by [facility] in a manner consistent with CLIArequirements. This test has not been cleared or approved bythe U.S. Food and Drug Administration.Test Performed by:[facility] - [address] [address]Was Director: Rosendo Bose M.D. Ph.D.; CLIA# [id number] Performed By: #### H IBAG ####[facility] (DEFAULT)[address] [place] [address] MAGNESIUMon 01-17-2024 Magnesium [Mass/Vol] 1.7 mg/dL Normal 1.6-2.6 [facility] Comment on above: Performed By: #### C HM7, HFP, MGO ####[facility] (DEFAULT)[address] [place] [address] Interpretation and review of laboratory results Normal [facility] Magnesium [Mass/Vol] 1.7 mg/dL 1.6 - 2 .6 mg/dL [facility] No Panel Informationon 01-17 Interpretation and review of laboratory results Abnormal [facility] PT,INR,PTTon 01-17-2024 aPTT Coag (PPP) [Time] 29.9 s [facility] INR Coag (Bld) [Relative time] 1.1 {INR} 0.9 - 1.1 [facility] Interpretation and review of laboratory results Abnormal [facility] PT Coag (PPP) [Time] 14.5 s High [facility] aPTT Coag (Bld) [Time] 29.9 s Normal 24.0-34.3 [facility] Comment on above: Performed By: #### P TPTT ####[facility] (DEFAULT)[address] [facility] [place] [address] INR Coag (PPP) [Relative time] 1.1 {INR} Normal 0.9-1.1 [facility] Comment on above: Performed By: #### P TPTT ####[facility] (DEFAULT)[address] [facility] [address] PT Coag (PPP) [Time] 14.5 s High 11.9-14.2 [facility] Comment on above: Performed By: #### P TPTT ####[facility] (DEFAULT)[address] [place] [address], [place] [address] B-TYPE NATRIURETIC PEPTIDE ( BRAIN)on 01-16-2024 Interpretation and review of laboratory results Abnormal [facility] Natriuretic peptide B (Bld) [Mass/Vol] 212 pg/mL High 0 - 100 pg/mL [facility] Natriuretic peptide B (Bld) [Mass/Vol] 212 pg/mL High 0-100 [facility] Comment on above: Performed By: #### B MUSIC MANAGER ####[facility] (DEFAULT)[address] [place] [address] CALCIUMon 01-16-2024 Calcium [Mass/Vol] 8.5 mg/dL Low 8.6-10.5 [facility] Comment on above: Performed By: #### C A, CHM7, IPB, MGO, HFP ####[facility] (DEFAULT)[address] [facility] [address] Calcium [Mass/Vol] 8.5 mg/dL Low 8.6 - 10. 5 mg/dL [facility] DARYL AURIS SCREEN BY PCRo n 01-16-2024 Daryl auris Screen by PCR Not detected Normal Not Detected [facility] Comment on above: Order Comment: This test was performed using a real-time PCR assay. This test was developed, and its performance characteristics determined by [facility]. It has not been cleared or approved by the FDA. The laboratory is regulated under CLIA as qualified to perform high-complexity testing. This test is used for clinical purposes. It should not be regarded as investigational or for research. Performed By: #### C LEXX MCCORMACK SCREEN BY PCR ####[facility] (DEFAULT)[address] [place] [address] CBC AND ELECTRONIC DIFFon Abs Baso Auto < Normal 0.00-0.09 [facility] Comment on above: Performed By: #### L [id number] ####[facility] (DEFAULT)[address] [facility] [place] [address] Basophils/100 WBC (Bld) 0.6 % Normal [facility] Comment on above: Performed By: #### L AB980 ####[facility] (DEFAULT)[address] [facility] [place] [address] DIFF STATUS Electronic Differential Normal [facility] Comment on above: Performed By: #### L [id number] ####[facility] (DEFAULT)[address] [facility] [address] Eosinophils (Bld) [#/Vol] 0.09 10*3/uL Normal 0.00-0.48 [facility] Comment on above: Performed By: #### L [id number] ####[facility] (DEFAULT)[address] [facility] [place] [address] Eosinophils/100 WBC (Bld) 2.5 % Normal [facility] Comment on above: Performed By: #### L [id number] ####[facility] (DEFAULT)[address] [place] [address] Hematocrit (Bld) [Volume fraction] 37.4 % Low 39.6-48.8 [facility] Comment on above: Performed By: #### L [id number] ####[facility] (DEFAULT)[address] [facility] [place] [address] Hemoglobin (Bld) [Mass/Vol] 12.1 g/dL Low 13.4-16.8 [facility] Comment on above: Performed By: #### L AB980 ####[facility] (DEFAULT)[address] [place] [address] Immature Grans % 0.3 % Normal [facility] Comment on above: Performed By: #### L AB980 ####[facility] (DEFAULT)[address] [facility] [place] [address] Immature Grans Absolute < Normal <=0.07 [facility] Comment on above: Performed By: #### L [id number] ####[facility] (DEFAULT)[address] [facility] [address] Lymphocytes (Bld) [#/Vol] 1.16 10*3/uL Normal 0.83-3.57 [facility] Comment on above: Performed By: #### L [id number] ####[facility] (DEFAULT)[address] [place] [address] Lymphocytes/100 WBC (Bld) 32.0 % Normal [facility] Comment on above: Performed By: #### L AB980 ####[facility] (DEFAULT)[address] [place] [address] MCV (RBC) [Entitic vol] 87.8 fL Normal 79.0-94.5 [facility] Comment on above: Performed By: #### L AB980 ####[facility] (DEFAULT)[address] [facility] [place] [address] Mean Cell Hgb 28.4 pg Normal 26.1-33.3 [facility] Comment on above: Performed By: #### L AB980 ####[facility] (DEFAULT)[address] [facility] [address] Mean Cell Hgb Conc 32.4 g/dL Normal 31.9-36.5 [facility] Comment on above: Performed By: #### L [id number] ####[facility] (DEFAULT)[address] [place] [address] Monocytes (Bld) [#/Vol] 0.43 10*3/uL Normal 0.24-0.93 [facility] Comment on above: Performed By: #### L AB980 ####[facility] (DEFAULT)[address] [place] [address] Monocytes/100 WBC (Bld) 11.9 % Normal [facility] Comment on above: Performed By: #### L AB980 ####[facility] (DEFAULT)[address] [place] [address] Nucleated RBC 0.0 /100 WBC Normal <=0.2 [facility] Comment on above: Performed By: #### L [id number] ####[facility] (DEFAULT)[address] [place] [address] Platelet mean volume (Bld) [Entitic vol] 10.1 fL Normal 8.7-12.3 [facility] Comment on above: Performed By: #### L [id number] ####[facility] (DEFAULT)[address] [place] [address] Platelets (Bld) [#/Vol] 155 10*3/uL Normal 146-337 [facility] Comment on above: Performed By: #### L [id number] ####[facility] (DEFAULT)[address] [place] [address] RBC (Bld) [#/Vol] 4.26 10*6/uL Low 4.38-5.83 [facility] Comment on above: Performed By: #### L [id number] ####[facility] (DEFAULT)[address] [facility] [place] [address] RBC Distribution 14.0 % Normal 10.9-14.3 [facility] Comment on above: Performed By: #### L [id number] ####[facility] (DEFAULT)[address] [facility] [place] [address] Segs + Bands Auto 52.7 % Normal [facility] Comment on above: Performed By: #### L [id number] ####[facility] (DEFAULT)[address] [place] [address] Segs + Bands,Absolute Auto 1.91 K/uL Normal 1.57-6.19 [facility] Comment on above: Performed By: #### L AB980 ####[facility] (DEFAULT)[address] [place] [address] WBC (Bld) [#/Vol] 3.62 10*3/uL Low 3.73-10.10 [facility] Comment on above: Performed By: #### L AB980 ####[facility] (DEFAULT)[address] [place] [address] Basophils (Bld) [#/Vol] K/uL 0.00 - 0.09 K/uL [facility] Basophils/100 WBC (Bld) 0.6 % [facility] Differential cell count method Nom (Bld) Electronic Differential [facility] Eosinophils (Bld) [#/Vol] 0.09 10*3/uL 0.00 - 0.48 K/uL [facility] Eosinophils/100 WBC (Bld) 2.5 % [facility] Erythrocyte distribution width (RBC) [Ratio] 14.0 % 10.9 - 14.3 % [facility] Hematocrit (Bld) [Volume fraction] 37.4 % Low 39.6 - 48.8 % [facility] Hemoglobin (Bld) [Mass/Vol] 12.1 g/dL Low 13.4 - 16.8 g/dL [facility] Immature granulocytes (Bld) [#/Vol] K/uL NINF - 0.07 K/uL [facility] Immature granulocytes/100 WBC (Bld) 0.3 % [facility] Interpretation and review of laboratory results Abnormal [facility] Lymphocytes (Bld) [#/Vol] 1.16 10*3/uL 0.83 - 3.57 K/uL [facility] Lymphocytes/100 WBC (Bld) 32.0 % [facility] MCH (RBC) [Entitic mass] 28.4 pg 26.1 - 33.3 pg [facility] MCHC (RBC) [Mass/Vol] 32.4 g/dL 31.9 - 36.5 g/dL [facility] MCV (RBC) [Entitic vol] 87.8 fL 79.0 - 94.5 fL [facility] Monocytes (Bld) [#/Vol] 0.43 10*3/uL 0.24 - 0.93 K/uL [facility] Monocytes/100 WBC (Bld) 11.9 % [facility] Neutrophils (Bld) [#/Vol] 1.91 10*3/uL 1.57 - 6.19 K/uL [facility] Nucleated RBC/100 WBC (Bld) [Ratio] 0.0 % NINF [facility] Platelet mean volume (Bld) [Entitic vol] 10.1 fL 8.7 - 12.3 fL [facility] Platelets (Bld) [#/Vol] 155 10*3/uL 146 - 337 K/uL [facility] RBC (Bld) [#/Vol] 4.26 10*6/uL Low [facility] Segmented neutrophils/100 WBC (Bld) 52.7 % [facility] WBC (Bld) [#/Vol] 3.62 10*3/uL Low 3.73 - 10. 10 K/uL [facility] CHEM 7 (LYTES,BUN,CREA,GLUC) on 01-16-2024 Anion gap [Moles/Vol] 11 mmol/L Normal - [facility] Comment on above: Performed By: #### C A, CHM7, IPB, MGO, HFP ####[facility] (DEFAULT)[address] [place] [address] Chloride [Moles/Vol] 108 mmol/L Normal 98-108 [facility] Comment on above: Performed By: #### C A, CHM7, IPB, MGO, HFP ####[facility] (DEFAULT)[address] [address] CO2 [Moles/Vol] 24 mmol/L Normal 21-31 [facility] Comment on above: Performed By: #### Chinedu Feliz, CHM7, IPB, MGO, HFP ####[facility] (DEFAULT)[address] [place] [address] Creatinine [Mass/Vol] 1.04 mg/dL Normal 0.70-1.30 [facility] Comment on above: Performed By: #### Chinedu Feliz, CHM7, IPB, MGO, HFP ####[facility] (DEFAULT)[address] [facility] [place] [address] GFR/1.73 sq M.predicted among non-blacks MDRD (S/P/Bld) [Vol rate/Area] 86 mL/min/{1.73_m2} Normal >=60 [facility] Comment on above: Result Comment: Repo rted eGFR is based on the CKD-EPI 2020 equation using creatinine, age, and sex. Performed By: #### Chinedu Feliz, CHM7, IPB, MGO, HFP ####[facility] (DEFAULT)[address] [facility] [place] [address] Glucose [Mass/Vol] 95 mg/dL Normal 70-99 [facility] Comment on above: Performed By: #### Chinedu Feliz, CHM7, IPB, MGO, HFP ####[facility] (DEFAULT)[address] [facility] [place] [address] Osmolality [Osmolality] 293 mosm/kg Normal 278-305 [facility] Comment on above: Performed By: #### Chinedu Feliz, CHM7, IPB, MGO, HFP ####[facility] (DEFAULT)[address] [place] [address] Potassium [Moles/Vol] 4.0 mmol/L Normal 3.5-5.0 [facility] Comment on above: Performed By: #### C Tray, CHM7, IPB, MGO, HFP ####[facility] (DEFAULT)[address] [place] [address] Sodium [Moles/Vol] 139 mmol/L Normal 135-145 [facility] Comment on above: Performed By: #### Chinedu Feliz, CHM7, IPB, MGO, HFP ####[facility] (DEFAULT)[address] [place] [address] Urea nitrogen [Mass/Vol] 19 mg/dL Normal 7-25 [facility] Comment on above: Performed By: #### Chinedu Feliz, CHM7, IPB, MGO, HFP ####[facility] (DEFAULT)[address] [facility] [place] [address] Urea nitrogen/Creatinine [Mass ratio] 18 mg/mg Normal [facility] Comment on above: Performed By: #### Chinedu Feliz, CHM7, IPB, MGO, HFP ####[facility] (DEFAULT)[address] [facility] [place] [address] Anion gap [Moles/Vol] 11 mmol/L 7 - 17 mmol/L [facility] Chloride [Moles/Vol] 108 mmol/L 98 - 10 8 mmol/L [facility] CO2 [Moles/Vol] 24 mmol/L 21 - 31 mmol/L [facility] Creatinine [Mass/Vol] 1.04 mg/dL 0.70 - 1.30 mg/dL [facility] eGFR, CKD-EPI, Male 86 - PINF [facility] Comment on above: Reported eGFR is bas ed on the CKD-EPI 2020 equation using creatinine, age, and sex. Glucose [Mass/Vol] 95 mg/dL 70 - 99 mg/dL [facility] Osmolality Calc [Osmolality] 293 [facility] Potassium [Moles/Vol] 4.0 mmol/L 3.5 - 5.0 mmol/L [facility] Sodium [Moles/Vol] 139 mmol/L 135 - 145 mmol/L [facility] Urea nitrogen [Mass/Vol] 19 mg/dL 7 - 25 mg/dL [facility] Urea nitrogen/Creatinine [Mass ratio] 18 mg/mg [facility] D-DIMER,QUANTITATIVEon 01-16 D-Dimer, High Sensitivity 0.67 mcg/mL FEU High <0.50 [facility] Comment on above: Result Comment: The D-Dimer assay is intended for use in conjuction with a clinical pretest probability (PTP) assessment model to exclude pulmonary embolism (PE) and as an aid in the diagnosis of Deep Vein Thrombosis (DVT) in outpatients suspected of PE or DVT. For the assay in use at [facility] ([facility]), a cutoff of <0.50 mcg/mL has a Negative Predictive Value of 99.7% for exclusion of DVT in low and moderate PTP patients. Performed By: #### P TPTT, HSDDI ####[facility] (DEFAULT)[address] [place] [address] D-DIMER,QUANTITATIVEOrdered By: Shaji Kelly on 01-16-2024 Fibrin D-dimer FEU (PPP) [Mass/Vol] 0.67 High [facility] Comment on above: The D-Dimer assay is intended for use in conjuction with a clinical pretest probability (PTP) assessment model to exclude pulmonary embolism (PE) and as an aid in the diagnosis of Deep Vein Thrombosis (DVT) in outpatients suspected of PE or DVT. For the assay in use at [facility] ([facility]), a cutoff of <0.50 mcg/mL has a Negative Predictive Value of 99.7% for exclusion of DVT in low and moderate PTP patients. Interpretation and review of laboratory results Abnormal [facility] HEPATIC FUNCTION PANELon Albumin [Mass/Vol] 3.7 g/dL Normal 3.5-5.0 [facility] Comment on above: Performed By: #### C A, CHM7, IPB, MGO, HFP ####[facility] (DEFAULT)[address] [place] [address] ALP [Catalytic activity/Vol] 70 U/L Normal 32-126 [facility] Comment on above: Performed By: #### C A, CHM7, IPB, MGO, HFP ####[facility] (DEFAULT)[address] [place] [address] ALT [Catalytic activity/Vol] 8 U/L Low 10-52 [facility] Comment on above: Performed By: #### C A, CHM7, IPB, MGO, HFP ####[facility] (DEFAULT)[address] [place] [address] AST [Catalytic activity/Vol] 21 U/L Normal 10-39 [facility] Comment on above: Performed By: #### C A, CHM7, IPB, MGO, HFP ####[facility] (DEFAULT)[address] [place] [address] Bilirubin [Mass/Vol] 1.9 mg/dL High <1.5 [facility] Comment on above: Performed By: #### C A, CHM7, IPB, MGO, HFP ####[facility] (DEFAULT)[address] [place] [address] Bilirubin.indirect [Mass/Vol] 0.4 mg/dL High <0.3 [facility] Comment on above: Performed By: #### C A, CHM7, IPB, MGO, HFP ####[facility] (DEFAULT)[address] [place] [address] Protein [Mass/Vol] 6.1 g/dL Low 6.4-8.3 [facility] Comment on above: Performed By: #### C A, CHM7, IPB, MGO, HFP ####[facility] (DEFAULT)[address] [place] [address] Albumin [Mass/Vol] 3.7 g/dL 3.5 - 5.0 g/dL [facility] ALP [Catalytic activity/Vol] 70 U/L 32 - 126 U/L [facility] ALT [Catalytic activity/Vol] 8 U/L Low 10 - 52 U/L [facility] AST [Catalytic activity/Vol] 21 U/L 10 - 39 U/L [facility] Bilirubin [Mass/Vol] 1.9 mg/dL High NINF - 1.5 mg/dL [facility] Bilirubin.direct [Mass/Vol] 0.4 mg/dL High NINF - 0.3 mg/dL [facility] Protein [Mass/Vol] 6.1 g/dL Low 6.4 - 8.3 g/dL [facility] MAGNESIUMon 01-16-2024 Magnesium [Mass/Vol] 1.7 mg/dL Normal 1.6-2.6 [facility] Comment on above: Performed By: #### C Tray, CHM7, IPB, MGO, HFP ####[facility] (DEFAULT)[address] [place] [address] Magnesium [Mass/Vol] 1.7 mg/dL 1.6 - 2 .6 mg/dL [facility] No Panel Informationon 01-16 Interpretation and review of laboratory results Abnormal [facility] Interpretation and review of laboratory results Normal [facility] PHOSPHATE, INORGANICon 01-16 Phosphorous 4.1 mg/dL Normal 2.2-4.6 [facility] Comment on above: Performed By: #### C A, CHM7, IPB, MGO, HFP ####[facility] (DEFAULT)[address] [place] [address] Phosphate [Mass/Vol] 4.1 mg/dL 2.2 - 4 .6 mg/dL [facility] PT,INR,PTTon 01-16-2024 aPTT Coag (Bld) [Time] 29.6 s Normal 24.0-34.3 [facility] [facility] Comment on above: Performed By: #### P TPTT, HSDDI ####[facility] (DEFAULT)[address] [place] [address] INR Coag (PPP) [Relative time] 1.2 {INR} High 0.9-1.1 [facility] Comment on above: Performed By: #### P TPTT, HSDDI ####[facility] (DEFAULT)[address] [place] [address] PT Coag (PPP) [Time] 14.9 s High 11.9-14.2 [facility] Comment on above: Performed By: #### P TPTT, HSDDI ####[facility] (DEFAULT)[address] [facility] [place] [address] aPTT Coag (PPP) [Time] 29.6 s [facility] INR Coag (Bld) [Relative time] 1.2 {INR} High 0.9 - 1.1 [facility] Interpretation and review of laboratory results Abnormal [facility] PT Coag (PPP) [Time] 14.9 s High [facility] TACROLIMUS LEVEL, TROUGH (IN E DRUG LEVEL)Ordered By: Jimy Castillo on 01-16-2024 Interpretation and review of laboratory results Normal [facility] Tacrolimus (Bld) [Mass/Vol] 5.7 ng/mL Bone Marrow Transplant: 4.0-12.0, Therapeutic: 5.0-15.0 [facility] Method performed is a chemiluminescent microparticle immunoasssay on the Spaces 2 [employer] Brick Catcher i2000. The range is based on experience at [facility] and users should be aware that target concentrations vary widely depending on concomitant therapy, time post-transplant, and desired degree of immunosuppression. [facility] TACROLIMUS LEVEL, TROUGH (IN E DRUG LEVEL)on 01-16-2024 Tacrolimus, Trough 5.7 ng/mL Normal Bone Susana ow Transplant: 4.0-12.0, Therapeutic: 5.0-15.0 [facility] Comment on above: Order Comment: Pleas e draw at specified interval PRIOR to dose. Do not hold dose to wait for level. Specimens batched twice per day, (M-F) and once per day weekendsMethod performed is a chemiluminescent microparticle immunoasssay on the [employer] i2000.The range is based on experience at [facility] and users should be aware that target concentrations vary widely depending on concomitant therapy, time post-transplant, and desired degree of immunosuppression. Performed By: #### T ACRO ####[facility] (DEFAULT)[address] [place] [address] US ABDOMEN LIVER DOPPLERon 0 01-16-2024 US ABDOMEN LIVER DOPPLER Normal [facility] US.doppler Abdominal vessels on 01-16-2024 IMPRESSION: [...] pleural effusion. Trace right upper quadrant ascites. [facility] Radiology Study observation (narrative) [facility] US.doppler Abdominal vessels Ordered By: Iona Duran on 01-16-2024 [facility] Work Phone: XR CHEST PA AND LATERAL 2 EWSon 01-16-2024 XR CHEST PA AND LATERAL 2 VIEWS Normal [facility] XR Chest PA and Lateralon IMPRESSION: [...] Normal IMPRESSION IMPRESSION: Moderate right pleural effusion. [facility] Radiology Study observation (narrative) [facility] XR Chest PA and LateralOrder ed By: Daisha Patterson on 01-16-2024 [facility] Work Phone: ALL CBC WITH AUTO DIFFon BASOPHILS ABSOLUTE AUTO 0.0 [facility] Basophils/100 WBC (Bld) 0.5 % 0.2 - 2.0 % [facility] Eosinophils/100 WBC (Bld) 2.8 % 0.9 - 7.0 % [facility] Erythrocyte distribution width (RBC) [Ratio] 13.8 % 11.0 - 15.0 % [facility] Hematocrit (Bld) [Volume fraction] 43.7 % 42.0 - 54.0 % [facility] Hemoglobin (Bld) [Mass/Vol] 14.0 g/dL 14.0 - 18.0 g/dL [facility] IMMATURE GRANULOCYTES ABS AUTO 0.01 [facility] Immature granulocytes/100 WBC (Bld) 0.3 % 0.0 - 0.5 % [facility] LYMPHOCYTES ABSOLUTE AUTO 1.5 [facility] Lymphocytes/100 WBC (Bld) 37.5 % 20.5 - 60.0 % [facility] MCH (RBC) [Entitic mass] 28.4 pg 25.9 - 34.0 pg [facility] MCHC (RBC) [Mass/Vol] 32.0 g/dL 29.9 - 35.2 g/dL [facility] MCV (RBC) [Entitic vol] 88.6 fL 80.0 - 94.0 fL [facility] MONOCYTES ABSOLUTE AUTO 0.5 [facility] Monocytes/100 WBC (Bld) 11.9 % 1.7 - 12.0 % [facility] NEUTROPHILS ABSOLUTE AUTO 1.9 [facility] Neutrophils/100 WBC (Bld) 47.0 % 43.0 - 75.0 % [facility] Platelet mean volume (Bld) [Entitic vol] 10.3 fL 9.5 - 13.5 fL [facility] TBH EO # 0.1 [facility] PLT 180 [facility] RBC 4.93 [facility] WBC 4.0 [facility] ALL CBC WITH AUTO DIFFon BASOPHILS ABSOLUTE AUTO 0.0 [facility] Basophils/100 WBC (Bld) 0.5 % 0.2 - 2.0 % [facility] Eosinophils/100 WBC (Bld) 2.6 % 0.9 - 7.0 % [facility] Erythrocyte distribution width (RBC) [Ratio] 13.5 % 11.0 - 15.0 % [facility] Hematocrit (Bld) [Volume fraction] 43.8 % 42.0 - 54.0 % [facility] Hemoglobin (Bld) [Mass/Vol] 14.0 g/dL 14.0 - 18.0 g/dL [facility] IMMATURE GRANULOCYTES ABS AUTO 0.00 [facility] Immature granulocytes/100 WBC (Bld) 0.0 % 0.0 - 0.5 % [facility] Interpretation and review of laboratory results Abnormal [facility] LYMPHOCYTES ABSOLUTE AUTO 1.8 [facility] Lymphocytes/100 WBC (Bld) 45.2 % 20.5 - 60.0 % [facility] MCH (RBC) [Entitic mass] 27.9 pg 25.9 - 34.0 pg [facility] MCHC (RBC) [Mass/Vol] 32.0 g/dL 29.9 - 35.2 g/dL [facility] MCV (RBC) [Entitic vol] 87.4 fL 80.0 - 94.0 fL [facility] MONOCYTES ABSOLUTE AUTO 0.4 [facility] Monocytes/100 WBC (Bld) 9.6 % 1.7 - 12.0 % [facility] NEUTROPHILS ABSOLUTE AUTO 1.6 [facility] Neutrophils/100 WBC (Bld) 42.1 % Low 43.0 - 75.0 % [facility] Platelet mean volume (Bld) [Entitic vol] 9.8 fL 9.5 - 13.5 fL [facility] TBH EO # 0.1 [facility] TBH PLT 180 [facility] TB RBC 5.01 [facility] TB WBC 3.9 Low [facility] CHEM 7 (LYTES,BUN,CREA,GLUC) on 09-11-2023 Anion gap [Moles/Vol] 13 mmol/L Normal 7-17 [facility] Comment on above: Performed By: #### TJ RAMÍREZ7 ####[facility] (DEFAULT)[address] [place] [address] Chloride [Moles/Vol] 111 mmol/L High 98-108 [facility] Comment on above: Performed By: #### TJ RAMÍREZ7 ####[facility] (DEFAULT)[address] [place] [address] CO2 [Moles/Vol] 20 mmol/L Low 21-31 [facility] Comment on above: Performed By: #### TJ RAMÍREZ7 ####[facility] (DEFAULT)[address] [place] [address] Creatinine [Mass/Vol] 1.13 mg/dL Normal 0.70-1.30 [facility] Comment on above: Performed By: #### Rod BLOOM CHM7 ####[facility] (DEFAULT)[address] [place] [address] GFR/1.73 sq M.predicted among non-blacks MDRD (S/P/Bld) [Vol rate/Area] 78 mL/min/{1.73_m2} Normal >=60 [facility] Comment on above: Result Comment: Repo rted eGFR is based on the CKD-EPI 2020 equation using creatinine, age, and sex. Performed By: #### TJ RAMÍREZ7 ####[facility] (DEFAULT)[address] [place] [address] Glucose [Mass/Vol] 109 mg/dL High 70-99 [facility] Comment on above: Performed By: #### TJ RAMÍREZ7 ####[facility] (DEFAULT)[address] [place] [address] Osmolality [Osmolality] 295 mosm/kg Normal 278-305 [facility] Comment on above: Performed By: #### Rod BLOOM CHM7 ####[facility] (DEFAULT)[address] [place] [address] Potassium [Moles/Vol] 4.3 mmol/L Normal 3.5-5.0 [facility] Comment on above: Performed By: #### TJ RAMÍREZ7 ####[facility] (DEFAULT)[address] [place] [address] Sodium [Moles/Vol] 140 mmol/L Normal 135-145 [facility] Comment on above: Performed By: #### Rod BLOOM CHM7 ####[facility] (DEFAULT)[address] [place] [address] Urea nitrogen [Mass/Vol] 16 mg/dL Normal 7-25 [facility] Comment on above: Performed By: #### TJ RAMÍREZ7 ####[facility] (DEFAULT)[address] [place] [address] Urea nitrogen/Creatinine [Mass ratio] 14 mg/mg Normal [facility] Comment on above: Performed By: #### Rod BLOOM CHM7 ####[facility] (DEFAULT)[address] [place] [address] Anion gap [Moles/Vol] 13 mmol/L 7 - 17 mmol/L [facility] Chloride [Moles/Vol] 111 mmol/L High 98 - 10 8 mmol/L [facility] CO2 [Moles/Vol] 20 mmol/L Low 21 - 31 mmol/L [facility] Creatinine [Mass/Vol] 1.13 mg/dL 0.70 - 1.30 mg/dL [facility] eGFR, CKD-EPI, Male 79 - PINF [facility] Glucose [Mass/Vol] 109 mg/dL High 70 - [...] [facility] POC Sample Type CAPBL [facility] Legionella sp identified Org specific cx Nom (Unsp spec)on 09-11-2023 Bacteria identified Cx Nom (Unsp spec) NO GROWTH DAY 7 [facility] 7 [facility] MAGNESIUMon 09-11-2023 Magnesium [Mass/Vol] 1.6 mg/dL Normal 1.6-2.6 [facility] Comment on above: Performed By: #### M NATHANIEL BLOOM ####[facility] (DEFAULT)[address] [place] [address] Interpretation and review of laboratory results Normal [facility] Magnesium [Mass/Vol] 1.6 mg/dL 1.6 - 2 .6 mg/dL [facility] No Panel Informationon 09-11 [facility] TACROLIMUS LEVEL, TROUGH (IN E DRUG LEVEL)on 09-11-2023 Interpretation and review of laboratory results Normal [facility] Tacrolimus (Bld) [Mass/Vol] 11.5 ng/mL [facility] Tacrolimus, Trough 11.5 ng/mL Normal Bone Susana ow Transplant: 4.0-12.0, Therapeutic: 5.0-15.0 [facility] Comment on above: Order Comment: Pleas e draw at specified interval PRIOR to dose. Do not hold dose to wait for level. Specimens batched twice per day, (M-F) and once per day weekendsMethod performed is a chemiluminescent microparticle immunoasssay on the [employer] i2000.The range is based on experience at [facility] and users should be aware that target concentrations vary widely depending on concomitant therapy, time post-transplant, and desired degree of immunosuppression. Performed By: #### T ACRO ####[facility] (DEFAULT)[address] [place] [address] CBC,PLATELETSon 09-10-2023 Hematocrit (Bld) [Volume fraction] 40.0 % Normal 39.6-48.8 [facility] Comment on above: Performed By: #### [place] [facility] [place] ####[facility] (DEFAULT)[address] [place] [address] Hemoglobin (Bld) [Mass/Vol] 12.7 g/dL Low 13.4-16.8 [facility] Comment on above: Performed By: #### [place] [facility] [place] ####[facility] (DEFAULT)[address] [place] [address] MCV (RBC) [Entitic vol] 86.0 fL Normal 79.0-94.5 [facility] Comment on above: Performed By: #### H EMO ####[facility] (DEFAULT)[address] [place] [address] Mean Cell Hgb 27.3 pg Normal 26.1-33.3 [facility] Comment on above: Performed By: #### H EMOGC ####[facility] (DEFAULT)[address] [place] [address] Mean Cell Hgb Conc 31.8 g/dL Low 31.9-36.5 [facility] Comment on above: Performed By: #### H EMOGC ####[facility] (DEFAULT)[address] [facility] [place] [address] Platelet mean volume (Bld) [Entitic vol] 9.5 fL Normal 8.7-12.3 [facility] Comment on above: Performed By: #### H EMOGC ####[facility] (DEFAULT)[address] [place] [address] Platelets (Bld) [#/Vol] 225 10*3/uL Normal 146-337 [facility] Comment on above: Performed By: #### H EMOGC ####[facility] (DEFAULT)[address] [facility] [place] [address] RBC (Bld) [#/Vol] 4.65 10*6/uL Normal 4.38-5.83 [facility] Comment on above: Performed By: #### H EMOGC ####[facility] (DEFAULT)[address] [facility] [place] [address] RBC Distribution 13.9 % Normal 10.9-14.3 [facility] Comment on above: Performed By: #### H EMOGC ####[facility] (DEFAULT)[address] [facility] [place] [address] WBC (Bld) [#/Vol] 6.52 10*3/uL Normal 3.73-10.10 [facility] Comment on above: Performed By: #### H EMOGC ####[facility] (DEFAULT)[address] [facility] [place] [address] Erythrocyte distribution width (RBC) [Ratio] 13.9 % [...] [facility] RBC (Bld) [#/Vol] 4.65 10*6/uL [facility] WBC (Bld) [#/Vol] 6.52 10*3/uL 3.73 - 10. 10 K/uL [facility] CHEM 7 (LYTES,BUN,CREA,GLUC) on 09-10-2023 Anion gap [Moles/Vol] 13 mmol/L Normal 7-17 [facility] Comment on above: Performed By: #### NATHANIEL RAMÍREZ, HFP ####[facility] (DEFAULT)[address] [place] [address] Chloride [Moles/Vol] 111 mmol/L High 98-108 [facility] Comment on above: Performed By: #### NATHANIEL RAMÍREZ, HFP ####[facility] (DEFAULT)[address] [place] [address] CO2 [Moles/Vol] 20 mmol/L Low 21-31 [facility] Comment on above: Performed By: #### NATHANIEL RAMÍREZ, HFP ####[facility] (DEFAULT)[address] [facility] [place] [address] Creatinine [Mass/Vol] 1.27 mg/dL Normal 0.70-1.30 [facility] Comment on above: Performed By: #### NATHANIEL RAMÍREZ, HFP ####[facility] (DEFAULT)[address] [place] [address] GFR/1.73 sq M.predicted among non-blacks MDRD (S/P/Bld) [Vol rate/Area] 68 mL/min/{1.73_m2} Normal >=60 [facility] Comment on above: Result Comment: Repo rted eGFR is based on the CKD-EPI 2020 equation using creatinine, age, and sex. Performed By: #### NATHANIEL RAMÍREZ, HFP ####[facility] (DEFAULT)[address] [place] [address] Glucose [Mass/Vol] 100 mg/dL High 70-99 [facility] Comment on above: Performed By: #### NATHANIEL RAMÍREZ, HFP ####[facility] (DEFAULT)[address] [place] [address] Osmolality [Osmolality] 293 mosm/kg Normal 278-305 [facility] Comment on above: Performed By: #### NATHANIEL RAMÍREZ, HFP ####[facility] (DEFAULT)[address] [place] [address] Potassium [Moles/Vol] 4.4 mmol/L Normal 3.5-5.0 [facility] Comment on above: Performed By: #### NATHANIEL RAMÍREZ, HFP ####[facility] (DEFAULT)[address] [facility] [place] [address] Sodium [Moles/Vol] 140 mmol/L Normal 135-145 [facility] Comment on above: Performed By: #### NATHANIEL RAMÍREZ, HFP ####[facility] (DEFAULT)[address] [place] [address] Urea nitrogen [Mass/Vol] 12 mg/dL Normal 7-25 [facility] Comment on above: Performed By: #### M NATHANIEL BLOOM, HFP ####[facility] (DEFAULT)[address] [place] [address] Urea nitrogen/Creatinine [Mass ratio] 9 mg/mg Normal [facility] Comment on above: Performed By: #### M NATHANIEL BLOOM, HFP ####[facility] (DEFAULT)[address] [place] [address] Anion gap [Moles/Vol] 13 mmol/L 7 - 17 mmol/L [facility] Chloride [Moles/Vol] 111 mmol/L High 98 - 10 8 mmol/L [facility] CO2 [Moles/Vol] 20 mmol/L Low 21 - 31 mmol/L [facility] Creatinine [Mass/Vol] 1.27 mg/dL 0.70 - 1.30 mg/dL [facility] eGFR, CKD-EPI, Male 69 - PINF [facility] Glucose [Mass/Vol] 100 mg/dL High 70 [...] PANELon Albumin [Mass/Vol] 3.3 g/dL Low 3.5-5.0 [facility] Comment on above: Performed By: #### M NATHANIEL BLOOM, HFP ####[facility] (DEFAULT)[address] [place] [address] ALP [Catalytic activity/Vol] 143 U/L High 32-126 [facility] Comment on above: Performed By: #### M HELEN BLOOMM7, HFP ####[facility] (DEFAULT)[address] [place] [address] ALT [Catalytic activity/Vol] 28 U/L Normal 10-52 [facility] Comment on above: Performed By: #### M HELEN BLOOMM7, HFP ####[facility] (DEFAULT)[address] [place] [address] AST [Catalytic activity/Vol] 29 U/L Normal 10-39 [facility] Comment on above: Performed By: #### Rod BLOOM CHM7, HFP ####[facility] (DEFAULT)[address] [place] [address] Bilirubin [Mass/Vol] 0.9 mg/dL Normal <1.5 [facility] Comment on above: Performed By: #### Rod BLOOM CHM7, HFP ####[facility] (DEFAULT)[address] [place] [address] Bilirubin.indirect [Mass/Vol] 0.2 mg/dL Normal <0.3 [facility] Comment on above: Performed By: #### Rod BLOOM CHM7, HFP ####[facility] (DEFAULT)[address] [place] [address] Protein [Mass/Vol] 6.8 g/dL Normal 6.4-8.3 [facility] Comment on above: Performed By: #### M MERLE CHM7, HFP ####[facility] (DEFAULT)[address] [place] [address] Albumin [Mass/Vol] 3.3 g/dL Low 3.5 - [...] 09-10-2023 Magnesium [Mass/Vol] 1.9 mg/dL Normal 1.6-2.6 [facility] Comment on above: Performed By: #### M MERLE, M7, [facility] ####[facility] (DEFAULT)[address] [place] [address] Interpretation and review of laboratory results Normal [facility] Magnesium [Mass/Vol] 1.9 mg/dL 1.6 - 2 .6 mg/dL [facility] No Panel Informationon 09-10 Interpretation and review of laboratory results Abnormal [facility] TACROLIMUS LEVEL, TROUGH (IN E DRUG LEVEL)Ordered By: Jimy Castillo on 09-10-2023 Interpretation and review of laboratory results Normal [facility] Tacrolimus (Bld) [Mass/Vol] 11.8 ng/mL [facility] TACROLIMUS LEVEL, TROUGH (IN E DRUG LEVEL)on 09-10-2023 Tacrolimus, Trough 11.8 ng/mL Normal Bone Susana ow Transplant: 4.0-12.0, Therapeutic: 5.0-15.0 [facility] Comment on above: Order Comment: Pleas e draw at specified interval PRIOR to dose. Do not hold dose to wait for level. Specimens batched twice per day, (M-F) and once per day weekendsMethod performed is a chemiluminescent microparticle immunoasssay on the [employer] i2000.The range is based on experience at [facility] and users should be aware that target concentrations vary widely depending on concomitant therapy, time post-transplant, and desired degree of immunosuppression. Performed By: #### T ACRO ####[facility] (DEFAULT)[address] [place] [address] CHEM 7 (LYTES,BUN,CREA,GLUC) on 09-09-2023 Anion gap [Moles/Vol] 14 mmol/L Normal 7-17 [facility] Comment on above: Performed By: #### M JO ANN BLOOM, CHM7 ####[facility] (DEFAULT)[address] [facility] [place] [address] Chloride [Moles/Vol] 113 mmol/L High 98-108 [facility] Comment on above: Performed By: #### M JO ANN BLOOM, CHM7 ####[facility] (DEFAULT)[address] [facility] [place] [address] CO2 [Moles/Vol] 18 mmol/L Low 21-31 [facility] Comment on above: Performed By: #### M JO ANN BLOOM, CHM7 ####[facility] (DEFAULT)[address] [place] [address] Creatinine [Mass/Vol] 1.03 mg/dL Normal 0.70-1.30 [facility] Comment on above: Performed By: #### M JO ANN BLOOM, CHM7 ####[facility] (DEFAULT)[address] [place] [address] GFR/1.73 sq M.predicted among non-blacks MDRD (S/P/Bld) [Vol rate/Area] 87 mL/min/{1.73_m2} Normal >=60 [facility] Comment on above: Result Comment: Repo rted eGFR is based on the CKD-EPI 2020 equation using creatinine, age, and sex. Performed By: #### M JO ANN BLOOM, CHM7 ####[facility] (DEFAULT)[address] [facility] [place] [address] Glucose [Mass/Vol] 106 mg/dL High 70-99 [facility] Comment on above: Performed By: #### JO ANN RAMÍREZ, CHM7 ####[facility] (DEFAULT)[address] [place] [address] Osmolality [Osmolality] 294 mosm/kg Normal 278-305 [facility] Comment on above: Performed By: #### JO ANN RAMÍREZ, CHM7 ####[facility] (DEFAULT)[address] [place] [address] Potassium [Moles/Vol] 4.0 mmol/L Normal 3.5-5.0 [facility] Comment on above: Performed By: #### JO ANN RAMÍREZ, CHM7 ####[facility] (DEFAULT)[address] [place] [address] Sodium [Moles/Vol] 141 mmol/L Normal 135-145 [facility] Comment on above: Performed By: #### JO ANN RAMÍREZ, CHM7 ####[facility] (DEFAULT)[address] [place] [address] Urea nitrogen [Mass/Vol] 10 mg/dL Normal 7-25 [facility] Comment on above: Performed By: #### JO ANN RAMÍREZ, CHM7 ####[facility] (DEFAULT)[address] [place] [address] Urea nitrogen/Creatinine [Mass ratio] 10 mg/mg Normal [facility] Comment on above: Performed By: #### JO ANN RAMÍREZ, CHM7 ####[facility] (DEFAULT)[address] [place] [address] Anion gap [Moles/Vol] 14 mmol/L 7 - 17 mmol/L [facility] Chloride [Moles/Vol] 113 mmol/L High 98 - 10 8 mmol/L [facility] CO2 [Moles/Vol] 18 mmol/L Low 21 - 31 mmol/L [facility] Creatinine [Mass/Vol] 1.03 mg/dL 0.70 - 1.30 mg/dL [facility] eGFR, CKD-EPI, Male 87 - PINF [facility] Glucose [Mass/Vol] 106 mg/dL High 70 [...] 09-09-2023 Magnesium [Mass/Vol] 1.6 mg/dL Normal 1.6-2.6 [facility] Comment on above: Performed By: #### M JO ANN BLOOM, TJ7 ####[facility] (DEFAULT)[address] [place] [address] Magnesium [Mass/Vol] 1.6 mg/dL 1.6 - 2 .6 mg/dL [facility] No Panel Informationon 09-09 Interpretation and review of laboratory results Normal [facility] PHOSPHATE, INORGANICon 09-09 Phosphorous 3.8 mg/dL Normal 2.2-4.6 [facility] Comment on above: Performed By: #### JO ANN RAMÍREZ, CHM7 ####[facility] (DEFAULT)[address] [place] [address] Phosphate [Mass/Vol] 3.8 mg/dL 2.2 - 4 .6 mg/dL [facility] TACROLIMUS LEVEL, TROUGH (IN E DRUG LEVEL)on 09-09-2023 Interpretation and review of laboratory results Normal [facility] Tacrolimus (Bld) [Mass/Vol] 9.2 ng/mL [facility] Tacrolimus, Trough 9.2 ng/mL Normal Bone Susana ow Transplant: 4.0-12.0, Therapeutic: 5.0-15.0 [facility] Comment on above: Order Comment: Samrajoan colt draw at specified interval PRIOR to dose. Do not hold dose to wait for level. Specimens batched twice per day, (M-F) and once per day weekendsMethod performed is a chemiluminescent microparticle immunoasssay on the [employer] i2000.The range is based on experience at [facility] and users should be aware that target concentrations vary widely depending on concomitant therapy, time post-transplant, and desired degree of immunosuppression. Performed By: #### T ACRO ####[facility] (DEFAULT)[address] [place] [address] CBC,PLATELETSon 09-08-2023 Hematocrit (Bld) [Volume fraction] 36.1 % Low 39.6-48.8 [facility] Comment on above: Performed By: #### [place] [facility] [place] ####[facility] (DEFAULT)[address] [place] [address] Hemoglobin (Bld) [Mass/Vol] 11.6 g/dL Low 13.4-16.8 [facility] Comment on above: Performed By: #### [place] [facility] [place] [place] ####[facility] (DEFAULT)[address] [place] [address] MCV (RBC) [Entitic vol] 85.1 fL Normal 79.0-94.5 [facility] Comment on above: Performed By: #### [facility] ####[facility] (DEFAULT)[address] [place] [address] Mean Cell Hgb 27.4 pg Normal 26.1-33.3 [facility] Comment on above: Performed By: #### H EMOGC ####[facility] (DEFAULT)[address] [place] [address] Mean Cell Hgb Conc 32.1 g/dL Normal 31.9-36.5 [facility] Comment on above: Performed By: #### H [facility] [place] ####[facility] (DEFAULT)[address] [place] [address] Platelet mean volume (Bld) [Entitic vol] 9.5 fL Normal 8.7-12.3 [facility] Comment on above: Performed By: #### H EMO ####[facility] (DEFAULT)[address] [place] [address] Platelets (Bld) [#/Vol] 182 10*3/uL Normal 146-337 [facility] Comment on above: Performed By: #### H EMO ####[facility] (DEFAULT)[address] [place] [address] RBC (Bld) [#/Vol] 4.24 10*6/uL Low 4.38-5.83 [facility] Comment on above: Performed By: #### H EMO ####[facility] (DEFAULT)[address] [place] [address] RBC Distribution 13.6 % Normal 10.9-14.3 [facility] Comment on above: Performed By: #### H EMO ####[facility] (DEFAULT)[address] [place] [address] WBC (Bld) [#/Vol] 4.59 10*3/uL Normal 3.73-10.10 [facility] Comment on above: Performed By: #### H EMO ####[facility] (DEFAULT)[address] [place] [address] Erythrocyte distribution width (RBC) [Ratio] 13.6 % [...] Hospital RBC (Bld) [#/Vol] 4.24 10*6/uL Low [facility] WBC (Bld) [#/Vol] 4.59 10*3/uL 3.73 - 10. 10 K/uL [facility] CHEM 7 (LYTES,BUN,CREA,GLUC) on 09-08-2023 Anion gap [Moles/Vol] 12 mmol/L Normal 7-17 [facility] Comment on above: Performed By: #### M MERLE, IPB, HFP, CHM7 ####[facility] (DEFAULT)[address] [place] [address] Chloride [Moles/Vol] 113 mmol/L High 98-108 [facility] Comment on above: Performed By: #### M MERLE IPB, HFP, CHM7 ####[facility] (DEFAULT)[address] [place] [address] CO2 [Moles/Vol] 21 mmol/L Normal 21-31 [facility] Comment on above: Performed By: #### M MERLE, IPB, HFP, CHM7 ####[facility] (DEFAULT)[address] [place] [address] Creatinine [Mass/Vol] 1.14 mg/dL Normal 0.70-1.30 [facility] Comment on above: Performed By: #### M GO, IPB, HFP, CHM7 ####[facility] (DEFAULT)[address] [facility] [place] [address] GFR/1.73 sq M.predicted among non-blacks MDRD (S/P/Bld) [Vol rate/Area] 77 mL/min/{1.73_m2} Normal >=60 [facility] Comment on above: Result Comment: Repo rted eGFR is based on the CKD-EPI 2020 equation using creatinine, age, and sex. Performed By: #### M GO, IPB, HFP, CHM7 ####[facility] (DEFAULT)[address] [facility] [place] [address] Glucose [Mass/Vol] 107 mg/dL High 70-99 [facility] Comment on above: Performed By: #### Rod BLOOM, IPB, HFP, CHM7 ####[facility] (DEFAULT)[address] [facility] [place] [address] Osmolality [Osmolality] 296 mosm/kg Normal 278-305 [facility] Comment on above: Performed By: #### Rod BLOOM, IPB, HFP, CHM7 ####[facility] (DEFAULT)[address] [facility] [place] [address] Potassium [Moles/Vol] 3.9 mmol/L Normal 3.5-5.0 [facility] Comment on above: Performed By: #### M MERLE, IPB, HFP, CHM7 ####[facility] (DEFAULT)[address] [facility] [place] [address] Sodium [Moles/Vol] 142 mmol/L Normal 135-145 [facility] Comment on above: Performed By: #### M MERLE, IPB, HFP, CHM7 ####[facility] (DEFAULT)[address] [facility] [place] [address] Urea nitrogen [Mass/Vol] 11 mg/dL Normal 7-25 [facility] Comment on above: Performed By: #### M GO, IPB, HFP, CHM7 ####[facility] (DEFAULT)[address] [place] [address] Urea nitrogen/Creatinine [Mass ratio] 10 mg/mg Normal [facility] Comment on above: Performed By: #### M MERLE, IPB, HFP, CHM7 ####[facility] (DEFAULT)[address] [place] [address] Anion gap [Moles/Vol] 12 mmol/L 7 - 17 [facility] Chloride [Moles/Vol] 113 mmol/L High 98 - 10 8 mmol/L [facility] CO2 [Moles/Vol] 21 mmol/L 21 - 31 mmol/L [facility] Creatinine [Mass/Vol] 1.14 mg/dL 0.70 - 1.30 mg/dL [facility] eGFR, CKD-EPI, Male 77 - [facility] Glucose [Mass/Vol] 107 mg/dL High 70 - 99 mg/dL [facility] Osmolality Calc [Osmolality] 296 [facility] Potassium [Moles/Vol] 3.9 mmol/L 3.5 - 5.0 mmol/L [facility] Sodium [Moles/Vol] 142 mmol/L 135 - 145 mmol/L [facility] Urea nitrogen [Mass/Vol] 11 mg/dL 7 - 25 mg/dL [facility] Urea nitrogen/Creatinine [Mass ratio] 10 mg/mg [facility] HEPATIC FUNCTION PANELon Albumin [Mass/Vol] 2.9 g/dL Low 3.5-5.0 [facility] Comment on above: Performed By: #### M MERLE, IPB, HFP, CHM7 ####U [facility] (DEFAULT)[address] [place] [address] ALP [Catalytic activity/Vol] 133 U/L High 32-126 [facility] Comment on above: Performed By: #### M MERLE, IPB, HFP, CHM7 ####[facility] (DEFAULT)[address] [place] [address] ALT [Catalytic activity/Vol] 23 U/L Normal 10-52 [facility] Comment on above: Performed By: #### M GO, IPB, HFP, CHM7 ####[facility] (DEFAULT)[address] [place] [address] AST [Catalytic activity/Vol] 23 U/L Normal 10-39 [facility] Comment on above: Performed By: #### M GO, IPB, HFP, CHM7 ####[facility] (DEFAULT)[address] [place] [address] Bilirubin [Mass/Vol] 0.8 mg/dL Normal <1.5 [facility] Comment on above: Performed By: #### M GO, IPB, HFP, CHM7 ####[facility] (DEFAULT)[address] [place] [address] Bilirubin.indirect [Mass/Vol] 0.2 mg/dL Normal <0.3 [facility] Comment on above: Performed By: #### M GO, IPB, HFP, CHM7 ####[facility] (DEFAULT)[address] [place] [address] Protein [Mass/Vol] 5.9 g/dL Low 6.4-8.3 [facility] Comment on above: Performed By: #### M GO, IPB, HFP, CHM7 ####[facility] (DEFAULT)[address] [place] [address] Albumin [Mass/Vol] 2.9 g/dL Low 3.5 - 5.0 g/dL [facility] ALP [Catalytic activity/Vol] 133 U/L High 32 - 126 U/L [facility] ALT [Catalytic activity/Vol] 23 U/L 10 - 52 U/L [facility] AST [Catalytic activity/Vol] 23 U/L 10 - 39 U/L [facility] Bilirubin [Mass/Vol] 0.8 mg/dL NINF - 1.5 mg/dL [facility] Bilirubin.direct [Mass/Vol] 0.2 mg/dL NINF - 0.3 mg/dL [facility] Protein [Mass/Vol] 5.9 g/dL Low 6.4 - 8.3 g/dL [facility] MAGNESIUMon 09-08-2023 Magnesium [Mass/Vol] 1.8 mg/dL Normal 1.6-2.6 [facility] Comment on above: Performed By: #### M JO ANN BLOOM, HFP, CHM7 ####[facility] (DEFAULT)[address] [place] [address] Interpretation and review of laboratory results Normal [facility] Magnesium [Mass/Vol] 1.8 mg/dL 1.6 - 2 .6 mg/dL [facility] No Panel Informationon 09-08 Interpretation and review of laboratory results Abnormal [facility] PHOSPHATE, INORGANICon 09-08 Interpretation and review of laboratory results Normal [facility] Phosphate [Mass/Vol] 4.1 mg/dL 2.2 - 4 .6 mg/dL [facility] Phosphorous 4.1 mg/dL Normal 2.2-4.6 [facility] Comment on above: Performed By: #### JO ANN RAMÍREZ, HFP, CHM7 ####[facility] (DEFAULT)[address] [place] [address] TACROLIMUS LEVEL, TROUGH (IN E DRUG LEVEL)on 09-08-2023 Interpretation and review of laboratory results Normal [facility] Tacrolimus (Bld) [Mass/Vol] 8.5 ng/mL [facility] Tacrolimus, Trough 8.5 ng/mL Normal [facility] Susana ow Transplant: 4.0-12.0, Therapeutic: 5.0-15.0 [facility] Comment on above: Order Comment: Pleas e draw at specified interval PRIOR to dose. Do not hold dose to wait for level. Specimens batched twice per day, (M-F) and once per day weekendsMethod performed is a chemiluminescent microparticle immunoasssay on the [employer] i2000.The range is based on experience at [facility] and users should be aware that target concentrations vary widely depending on concomitant therapy, time post-transplant, and desired degree of immunosuppression. Performed By: #### T ACRO ####[facility] (DEFAULT)[address] [facility] [place] [address] CBC,PLATELETSon 09-07-2023 Hematocrit (Bld) [Volume fraction] 37.1 % Low 39.6-48.8 [facility] Comment on above: Performed By: #### H EMOGC ####[facility] (DEFAULT)[address] [facility] [address] Hemoglobin (Bld) [Mass/Vol] 11.9 g/dL Low 13.4-16.8 [facility] Comment on above: Performed By: #### H EMOGC ####[facility] (DEFAULT)[address] [place] [address] MCV (RBC) [Entitic vol] 86.5 fL Normal 79.0-94.5 [facility] Comment on above: Performed By: #### H EMOGC ####[facility] (DEFAULT)[address] [place] [address] Mean Cell Hgb 27.7 pg Normal 26.1-33.3 [facility] Comment on above: Performed By: #### H EMOGC ####[facility] (DEFAULT)[address] [place] [address] Mean Cell Hgb Conc 32.1 g/dL Normal 31.9-36.5 [facility] Comment on above: Performed By: #### H EMOGC ####[facility] (DEFAULT)[address] [facility] [place] [address] Platelet mean volume (Bld) [Entitic vol] 9.6 fL Normal 8.7-12.3 [facility] Comment on above: Performed By: #### H EMO ####[facility] (DEFAULT)[address] [place] [address] Platelets (Bld) [#/Vol] 176 10*3/uL Normal 146-337 [facility] Comment on above: Performed By: #### H EMO ####[facility] (DEFAULT)[address] [place] [address] RBC (Bld) [#/Vol] 4.29 10*6/uL Low 4.38-5.83 [facility] Comment on above: Performed By: #### H EMO ####[facility] (DEFAULT)[address] [place] [address] RBC Distribution 13.5 % Normal 10.9-14.3 [facility] Comment on above: Performed By: #### H EMO ####[facility] (DEFAULT)[address] [place] [address] WBC (Bld) [#/Vol] 4.10 10*3/uL Normal 3.73-10.10 [facility] Comment on above: Performed By: #### [place] [facility] [place] ####[facility] (DEFAULT)[address] [place] [address] Erythrocyte distribution width (RBC) [Ratio] 13.5 % [...] Hospital RBC (Bld) [#/Vol] 4.29 10*6/uL Low [facility] WBC (Bld) [#/Vol] 4.10 10*3/uL 3.73 - 10. 10 K/uL [facility] CHEM 7 (LYTES,BUN,CREA,GLUC) on 09-07-2023 Anion gap [Moles/Vol] 13 mmol/L Normal 7-17 [facility] Comment on above: Performed By: #### C HM7, IPB, MGO, HFP ####[facility] (DEFAULT)[address] [place] [address] Chloride [Moles/Vol] 113 mmol/L High 98-108 [facility] Comment on above: Performed By: #### C HM7, IPB, MGO, HFP ####[facility] (DEFAULT)[address] [place] [address] CO2 [Moles/Vol] 19 mmol/L Low 21-31 [facility] Comment on above: Performed By: #### C HM7, IPB, MGO, HFP ####[facility] (DEFAULT)[address] [place] [address] Creatinine [Mass/Vol] 1.22 mg/dL Normal 0.70-1.30 [facility] Comment on above: Performed By: #### C HM7, IPB, MGO, HFP ####[facility] (DEFAULT)[address] [place] [address] GFR/1.73 sq M.predicted among non-blacks MDRD (S/P/Bld) [Vol rate/Area] 71 mL/min/{1.73_m2} Normal >=60 [facility] Comment on above: Result Comment: Repo rted eGFR is based on the CKD-EPI 2020 equation using creatinine, age, and sex. Performed By: #### C HM7, IPB, MGO, HFP ####[facility] (DEFAULT)[address] [place] [address] Glucose [Mass/Vol] 107 mg/dL High 70-99 [facility] Comment on above: Performed By: #### C HM7, IPB, MGO, HFP ####U [facility] (DEFAULT)[address] [place] [address] Osmolality [Osmolality] 295 mosm/kg Normal 278-305 [facility] Comment on above: Performed By: #### C HM7, IPB, MGO, HFP ####[facility] (DEFAULT)[address] [place] [address] Potassium [Moles/Vol] 3.9 mmol/L Normal 3.5-5.0 [facility] Comment on above: Performed By: #### C HM7, IPB, MGO, HFP ####[facility] (DEFAULT)[address] [place] [address] Sodium [Moles/Vol] 141 mmol/L Normal 135-145 [facility] Comment on above: Performed By: #### C HM7, IPB, MGO, HFP ####[facility] (DEFAULT)[address] [place] [address] Urea nitrogen [Mass/Vol] 13 mg/dL Normal 7-25 [facility] Comment on above: Performed By: #### C HM7, IPB, MGO, HFP ####[facility] (DEFAULT)[address] [place] [address] Urea nitrogen/Creatinine [Mass ratio] 11 mg/mg Normal [facility] Comment on above: Performed By: #### C HM7, IPB, MGO, HFP ####[facility] (DEFAULT)[address] [place] [address] Anion gap [Moles/Vol] 13 mmol/L 7 - 17 mmol/L [facility] Chloride [Moles/Vol] 113 mmol/L High 98 - 10 8 mmol/L [facility] CO2 [Moles/Vol] 19 mmol/L Low 21 - 31 mmol/L [facility] Creatinine [Mass/Vol] 1.22 mg/dL 0.70 - 1.30 mg/dL [facility] eGFR, CKD-EPI, Male 72 - PINF [facility] Glucose [Mass/Vol] 107 mg/dL High 70 [...] PANELon Albumin [Mass/Vol] 2.9 g/dL Low 3.5-5.0 [facility] Comment on above: Performed By: #### C HM7, IPB, MGO, HFP ####[facility] (DEFAULT)[address] [place] [address] ALP [Catalytic activity/Vol] 111 U/L Normal 32-126 [facility] Comment on above: Performed By: #### C HM7, IPB, MGO, HFP ####[facility] (DEFAULT)[address] [place] [address] ALT [Catalytic activity/Vol] 18 U/L Normal 10-52 [facility] Comment on above: Performed By: #### C HM7, IPB, MGO, HFP ####[facility] (DEFAULT)[address] [place] [address] AST [Catalytic activity/Vol] 23 U/L Normal 10-39 [facility] Comment on above: Performed By: #### C HM7, IPB, MGO, HFP ####[facility] (DEFAULT)[address] [place] [address] Bilirubin [Mass/Vol] 0.8 mg/dL Normal <1.5 [facility] Comment on above: Performed By: #### C HM7, IPB, MGO, HFP ####[facility] (DEFAULT)[address] [place] [address] Bilirubin.indirect [Mass/Vol] 0.3 mg/dL High <0.3 [facility] Comment on above: Performed By: #### C HM7, IPB, MGO, HFP ####[facility] (DEFAULT)[address] [place] [address] Protein [Mass/Vol] 6.0 g/dL Low 6.4-8.3 [facility] Comment on above: Performed By: #### C HM7, IPB, MGO, HFP ####[facility] (DEFAULT)[address] [place] [address] Albumin [Mass/Vol] 2.9 g/dL Low 3.5 - [...] 09-07-2023 Magnesium [Mass/Vol] 1.7 mg/dL Normal 1.6-2.6 [facility] Comment on above: Performed By: #### C HM7, IPB, MGO, HFP ####[facility] (DEFAULT)[address] [place] [address] Interpretation and review of laboratory results Normal [facility] Magnesium [Mass/Vol] 1.7 mg/dL 1.6 - 2 .6 mg/dL [facility] No Panel Informationon 09-07 Interpretation and review of laboratory results Abnormal [facility] PHOSPHATE, INORGANICon 09-07 Phosphorous 4.4 mg/dL Normal 2.2-4.6 [facility] Comment on above: Performed By: #### C HM7, IPB, MGO, HFP ####[facility] (DEFAULT)[address] [place] [address] Interpretation and review of laboratory results Normal [facility] Phosphate [Mass/Vol] 4.4 mg/dL 2.2 - 4 .6 mg/dL [facility] TACROLIMUS LEVEL, TROUGH (IN E DRUG LEVEL)Ordered By: Elizabeth Maldonado on 09-07-2023 Interpretation and review of laboratory results Normal [facility] Tacrolimus (Bld) [Mass/Vol] 7.8 ng/mL [facility] TACROLIMUS LEVEL, TROUGH (IN E DRUG LEVEL)on 09-07-2023 Tacrolimus, Trough 7.8 ng/mL Normal Bone Susana ow Transplant: 4.0-12.0, Therapeutic: 5.0-15.0 [facility] Comment on above: Order Comment: Pleas e draw at specified interval PRIOR to dose. Do not hold dose to wait for level. Specimens batched twice per day, (M-F) and once per day weekendsMethod performed is a chemiluminescent microparticle immunoasssay on the [employer] i2000.The range is based on experience at [facility] and users should be aware that target concentrations vary widely depending on concomitant therapy, time post-transplant, and desired degree of immunosuppression. Performed By: #### T ACRO ####[facility] (DEFAULT)[address] [place] [address] CBC,PLATELETSon 09-06-2023 Hematocrit (Bld) [Volume fraction] 38.4 % Low 39.6-48.8 [facility] Comment on above: Performed By: #### H EMOGC ####[facility] (DEFAULT)[address] [place] [address] Hemoglobin (Bld) [Mass/Vol] 11.9 g/dL Low 13.4-16.8 [facility] Comment on above: Performed By: #### H EMOGC ####[facility] (DEFAULT)[address] [facility] [place] [address] MCV (RBC) [Entitic vol] 85.9 fL Normal 79.0-94.5 [facility] Comment on above: Performed By: #### H EMOGC ####[facility] (DEFAULT)[address] [facility] [place] [address] Mean Cell Hgb 26.6 pg Normal 26.1-33.3 [facility] Comment on above: Performed By: #### H EMOGC ####[facility] (DEFAULT)[address] [facility] [address] Mean Cell Hgb Conc 31.0 g/dL Low 31.9-36.5 [facility] Comment on above: Performed By: #### H EMOGC ####[facility] (DEFAULT)[address] [facility] [address] Platelet mean volume (Bld) [Entitic vol] 9.7 fL Normal 8.7-12.3 [facility] Comment on above: Performed By: #### H EMOGC ####[facility] (DEFAULT)[address] [place] [address] Platelets (Bld) [#/Vol] 181 10*3/uL Normal 146-337 [facility] Comment on above: Performed By: #### H EMO ####[facility] (DEFAULT)[address] [place] [address] RBC (Bld) [#/Vol] 4.47 10*6/uL Normal 4.38-5.83 [facility] Comment on above: Performed By: #### H EMO ####[facility] (DEFAULT)[address] [place] [address] RBC Distribution 13.4 % Normal 10.9-14.3 [facility] Comment on above: Performed By: #### H EMO ####[facility] (DEFAULT)[address] [place] [address] WBC (Bld) [#/Vol] 4.41 10*3/uL Normal 3.73-10.10 [facility] Comment on above: Performed By: #### [place] [facility] [place] ####[facility] (DEFAULT)[address] [place] [address] Erythrocyte distribution width (RBC) [Ratio] 13.4 % [...] Private Hospital RBC (Bld) [#/Vol] 4.47 10*6/uL [facility] WBC (Bld) [#/Vol] 4.41 10*3/uL 3.73 - 10. 10 K/uL [facility] CHEM 7 (LYTES,BUN,CREA,GLUC) on 09-06-2023 Anion gap [Moles/Vol] 14 mmol/L 7 - 17 mmol/L [facility] Chloride [Moles/Vol] 109 mmol/L High 98 - 10 8 mmol/L [facility] CO2 [Moles/Vol] 19 mmol/L Low 21 - 31 mmol/L [facility] Creatinine [Mass/Vol] 1.26 mg/dL 0.70 - 1.30 mg/dL [facility] eGFR, CKD-EPI, Male 70 - PINF [facility] Glucose [Mass/Vol] 114 mg/dL High 70 [...] Anion gap [Moles/Vol] 14 mmol/L Normal 7-17 [facility] Comment on above: Performed By: #### NATHANIEL RAMÍREZ, HFP ####[facility] (DEFAULT)[address] [place] [address] Chloride [Moles/Vol] 109 mmol/L High 98-108 [facility] Comment on above: Performed By: #### NATHANIEL RAMÍREZ, HFP ####[facility] (DEFAULT)[address] [place] [address] CO2 [Moles/Vol] 19 mmol/L Low 21-31 [facility] Comment on above: Performed By: #### NATHANIEL RAMÍREZ, HFP ####[facility] (DEFAULT)[address] [place] [address] Creatinine [Mass/Vol] 1.26 mg/dL Normal 0.70-1.30 [facility] Comment on above: Performed By: #### NATHANIEL RAMÍREZ, HFP ####[facility] (DEFAULT)[address] [place] [address] GFR/1.73 sq M.predicted among non-blacks MDRD (S/P/Bld) [Vol rate/Area] 69 mL/min/{1.73_m2} Normal >=60 [facility] Comment on above: Result Comment: Repo rted eGFR is based on the CKD-EPI 2020 equation using creatinine, age, and sex. Performed By: #### NATHANIEL RAMÍREZ, HFP ####[facility] (DEFAULT)[address] [place] [address] Glucose [Mass/Vol] 114 mg/dL High 70-99 [facility] Comment on above: Performed By: #### NATHANIEL RAMÍREZ, HFP ####[facility] (DEFAULT)[address] [place] [address] Osmolality [Osmolality] 291 mosm/kg Normal 278-305 [facility] Comment on above: Performed By: #### NATHANIEL RAMÍREZ, HFP ####[facility] (DEFAULT)[address] [place] [address] Potassium [Moles/Vol] 4.1 mmol/L Normal 3.5-5.0 [facility] Comment on above: Performed By: #### NATHANIEL RAMÍREZ, HFP ####[facility] (DEFAULT)[address] [place] [address] Sodium [Moles/Vol] 138 mmol/L Normal 135-145 [facility] Comment on above: Performed By: #### M NATHANIEL BLOOM, HFP ####[facility] (DEFAULT)[address] [facility] [place] [address] Urea nitrogen [Mass/Vol] 16 mg/dL Normal 7-25 [facility] Comment on above: Performed By: #### NATHANIEL RAMÍREZ, HFP ####[facility] (DEFAULT)[address] [place] [address] Urea nitrogen/Creatinine [Mass ratio] 13 mg/mg Normal [facility] Comment on above: Performed By: #### NATHANIEL RAMÍREZ, HFP ####[facility] (DEFAULT)[address] [place] [address] HEPATIC FUNCTION PANELon Albumin [Mass/Vol] 3.0 g/dL Low 3.5 - 5.0 g/dL [facility] ALP [Catalytic activity/Vol] 115 U/L 32 - 126 U/L [facility] ALT [Catalytic activity/Vol] 25 U/L 10 - 52 U/L [facility] AST [Catalytic activity/Vol] 31 U/L 10 - 39 U/L [facility] Bilirubin [Mass/Vol] 1.0 mg/dL [facility] 1.[facility] mg/dL [facility] Bilirubin.direct [Mass/Vol] 0.3 mg/dL High NINF - 0.3 mg/dL [facility] Protein [Mass/Vol] 6.3 g/dL Low 6.4 - 8.3 g/dL [facility] Albumin [Mass/Vol] 3.0 g/dL Low 3.5-5.0 [facility] Comment on above: Performed By: #### NATHANIEL RAMÍREZ, HFP ####[facility] (DEFAULT)[address] [place] [address] ALP [Catalytic activity/Vol] 115 U/L Normal 32-126 [facility] Comment on above: Performed By: #### M MERLE CHM7, HFP ####[facility] (DEFAULT)[address] [place] [address] ALT [Catalytic activity/Vol] 25 U/L Normal 10-52 [facility] Comment on above: Performed By: #### M MERLE CHM7, HFP ####[facility] (DEFAULT)[address] [place] [address] AST [Catalytic activity/Vol] 31 U/L Normal 10-39 [facility] Comment on above: Performed By: #### M TJ BLOOM7, HFP ####[facility] (DEFAULT)[address] [place] [address] Bilirubin [Mass/Vol] 1.0 mg/dL Normal <1.5 [facility] Comment on above: Performed By: #### Rod BLOOM CHM7, HFP ####[facility] (DEFAULT)[address] [place] [address] Bilirubin.indirect [Mass/Vol] 0.3 mg/dL High <0.3 [facility] Comment on above: Performed By: #### M TJ BLOOM7, HFP ####[facility] (DEFAULT)[address] [place] [address] Protein [Mass/Vol] 6.3 g/dL Low 6.4-8.3 [facility] Comment on above: Performed By: #### M MERLE CHM7, HFP ####[facility] (DEFAULT)[address] [place] [address] MAGNESIUMon 09-06-2023 Interpretation and review of laboratory results Normal [facility] Magnesium [Mass/Vol] 2.0 mg/dL 1.6 - 2 .6 mg/dL [facility] Magnesium [Mass/Vol] 2.0 mg/dL Normal 1.6-2.6 [facility] Comment on above: Performed By: #### M GO, CHM7, [facility] ####[facility] (DEFAULT)[address] [place] [address] No Panel Informationon 09-06 Interpretation and review of laboratory results Abnormal [facility] TACROLIMUS LEVEL, TROUGH (IN E DRUG LEVEL)on 09-06-2023 Interpretation and review of laboratory results Normal [facility] Tacrolimus (Bld) [Mass/Vol] 6.7 ng/mL [facility] Tacrolimus, Trough 6.7 ng/mL Normal Bone Susana ow Transplant: 4.0-12.0, Therapeutic: 5.0-15.0 [facility] Comment on above: Order Comment: Pleas e draw at specified interval PRIOR to dose. Do not hold dose to wait for level. Specimens batched twice per day, (M-) and once per day weekendsMethod performed is a chemiluminescent microparticle immunoasssay on the [employer] i2000.The range is based on experience at [facility] and users should be aware that target concentrations vary widely depending on concomitant therapy, time post-transplant, and desired degree of immunosuppression. Performed By: #### T ACRO ####[facility] (DEFAULT)[address] [place] [address] CBC,PLATELETSon 09-05-2023 Hematocrit (Bld) [Volume fraction] 35.6 % Low 39.6-48.8 [facility] Comment on above: Performed By: #### H EMO ####[facility] (DEFAULT)[address] [place] [address] Hemoglobin (Bld) [Mass/Vol] 11.4 g/dL Low 13.4-16.8 [facility] Comment on above: Performed By: #### H EMO ####[facility] (DEFAULT)[address] [place] [address] MCV (RBC) [Entitic vol] 86.0 fL Normal 79.0-94.5 [facility] Comment on above: Performed By: #### [facility] ####[facility] (DEFAULT)[address] [place] [address] Mean Cell Hgb 27.5 pg Normal 26.1-33.3 [facility] Comment on above: Performed By: #### H EMOGC ####[facility] (DEFAULT)[address] [place] [address] Mean Cell Hgb Conc 32.0 g/dL Normal 31.9-36.5 [facility] Comment on above: Performed By: #### H EMOGC ####[facility] (DEFAULT)[address] [place] [address] Platelet mean volume (Bld) [Entitic vol] 10.0 fL Normal 8.7-12.3 [facility] Comment on above: Performed By: #### H EMOGC ####[facility] (DEFAULT)[address] [place] [address] Platelets (Bld) [#/Vol] 170 10*3/uL Normal 146-337 [facility] Comment on above: Performed By: #### H EMOGC ####[facility] (DEFAULT)[address] [place] [address] RBC (Bld) [#/Vol] 4.14 10*6/uL Low 4.38-5.83 [facility] Comment on above: Performed By: #### H EMOGC ####[facility] (DEFAULT)[address] [place] [address] RBC Distribution 13.5 % Normal 10.9-14.3 [facility] Comment on above: Performed By: #### H EMOGC ####[facility] (DEFAULT)[address] [place] [address] WBC (Bld) [#/Vol] 4.24 10*3/uL Normal 3.73-10.10 [facility] Comment on above: Performed By: #### H EMOGC ####[facility] (DEFAULT)[address] [place] [address] Erythrocyte distribution width (RBC) [Ratio] 13.5 % [...] Hospital RBC (Bld) [#/Vol] 4.14 10*6/uL Low [facility] WBC (Bld) [#/Vol] 4.24 10*3/uL 3.73 - 10. 10 K/uL [facility] CHEM 7 (LYTES,BUN,CREA,GLUC) on 09-05-2023 Anion gap [Moles/Vol] 12 mmol/L Normal 7-17 [facility] Comment on above: Performed By: #### H FP, CHM7, MGO ####[facility] (DEFAULT)[address] [place] [address] Chloride [Moles/Vol] 107 mmol/L Normal 98-108 [facility] Comment on above: Performed By: #### H FP, CHM7, MGO ####[facility] (DEFAULT)[address] [place] [address] CO2 [Moles/Vol] 20 mmol/L Low 21-31 [facility] Comment on above: Performed By: #### H FP CHM7, MGO ####[facility] (DEFAULT)[address] [place] [address] Creatinine [Mass/Vol] 1.43 mg/dL High 0.70-1.30 [facility] Comment on above: Performed By: #### H ANTWAN, CHM7, MGO ####[facility] (DEFAULT)[address] [facility] [address] GFR/1.73 sq M.predicted among non-blacks MDRD (S/P/Bld) [Vol rate/Area] 59 mL/min/{1.73_m2} Low >=60 [facility] Comment on above: Result Comment: Repo rted eGFR is based on the CKD-EPI 2020 equation using creatinine, age, and sex. Performed By: #### H ANTWAN, CHM7, MGO ####[facility] (DEFAULT)[address] [facility] [address] Glucose [Mass/Vol] 111 mg/dL High 70-99 [facility] Comment on above: Performed By: #### H FP, CHM7, MGO ####[facility] (DEFAULT)[address] [facility] [address] Osmolality [Osmolality] 286 mosm/kg Normal 278-305 [facility] Comment on above: Performed By: #### H FP, CHM7, MGO ####[facility] (DEFAULT)[address] [facility] [address] Potassium [Moles/Vol] 4.2 mmol/L Normal 3.5-5.0 [facility] Comment on above: Performed By: #### H FP, CHM7, MGO ####[facility] (DEFAULT)[address] [facility] [address] Sodium [Moles/Vol] 135 mmol/L Normal 135-145 [facility] Comment on above: Performed By: #### H NATHANIEL MONCADA, MGO ####[facility] (DEFAULT)[address] [place] [address] Urea nitrogen [Mass/Vol] 18 mg/dL Normal 7-25 [facility] Comment on above: Performed By: #### H NATHANIEL MONCADA, MGO ####[facility] (DEFAULT)[address] [place] [address] Urea nitrogen/Creatinine [Mass ratio] 13 mg/mg Normal [facility] Comment on above: Performed By: #### H NATHANIEL MONCADA, MGO ####[facility] (DEFAULT)[address] [place] [address] Anion gap [Moles/Vol] 12 mmol/L 7 - 17 mmol/L [facility] Chloride [Moles/Vol] 107 mmol/L 98 - 10 8 mmol/L [facility] CO2 [Moles/Vol] 20 mmol/L Low 21 - 31 mmol/L [facility] Creatinine [Mass/Vol] 1.43 mg/dL High 0.70 - 1.30 mg/dL [facility] eGFR, CKD-EPI, Male 60 Low - PINF [facility] Glucose [Mass/Vol] 111 mg/dL High 70 - 99 mg/dL [facility] Osmolality Calc [Osmolality] 286 [facility] Potassium [Moles/Vol] 4.2 mmol/L 3.5 - 5.0 mmol/L [facility] Sodium [Moles/Vol] 135 mmol/L 135 - 145 mmol/L [facility] Urea nitrogen [Mass/Vol] 18 mg/dL 7 - 25 mg/dL [facility] Urea nitrogen/Creatinine [Mass ratio] 13 mg/mg [facility] CONTINUOUS CARDIAC MONITORIN G STRIPon 09-05-2023 [facility] HEPATIC FUNCTION PANELon Albumin [Mass/Vol] 2.8 g/dL Low 3.5-5.0 [facility] Comment on above: Performed By: #### H FP, CHM7, MGO ####[facility] (DEFAULT)[address] [place] [address] ALP [Catalytic activity/Vol] 103 U/L Normal 32-126 [facility] Comment on above: Performed By: #### H FP, CHM7, MGO ####[facility] (DEFAULT)[address] [place] [address] ALT [Catalytic activity/Vol] 26 U/L Normal 10-52 [facility] Comment on above: Performed By: #### H FP, CHM7, MGO ####[facility] (DEFAULT)[address] [place] [address] AST [Catalytic activity/Vol] 38 U/L Normal 10-39 [facility] Comment on above: Performed By: #### H FP, CHM7, MGO ####[facility] (DEFAULT)[address] [place] [address] Bilirubin [Mass/Vol] 0.9 mg/dL Normal <1.5 [facility] Comment on above: Performed By: #### H FP, CHM7, MGO ####[facility] (DEFAULT)[address] [place] [address] Bilirubin.indirect [Mass/Vol] 0.1 mg/dL Normal <0.3 [facility] Comment on above: Performed By: #### H FP, CHM7, MGO ####[facility] (DEFAULT)[address] [place] [address] Protein [Mass/Vol] 6.1 g/dL Low 6.4-8.3 [facility] Comment on above: Performed By: #### H FP, CHM7, MGO ####[facility] (DEFAULT)[address] [place] [address] Albumin [Mass/Vol] 2.8 g/dL Low 3.5 - [...] Hospital Histoplasma Antigen, FLUID Not detected ng/mL [facility] HISTOPLASMA CAPSULATUM/BLAST OMYCES SPECIES,PCR FLUIDon 09-05-2023 HISTO/BLASTO RESULT Negative Not Applicable [facility] Specimen source Nom (Unsp spec) BAL RML [facility] IMMUNOPHENOTYPING, TISSUE/FL UIDon 09-05-2023 BKR DX CODE Use Ordering [facility] Flow Interpretation See Comment [facility] Flow Interpreted by: Yossi Perla MD, PhD [facility] MAGNESIUMon 09-05-2023 Magnesium [Mass/Vol] 1.7 mg/dL Normal 1.6-2.6 [facility] Comment on above: Performed By: #### H FP, CHM7, MGO ####[facility] (DEFAULT)[address] [place] [address] Interpretation and review of laboratory results Normal [facility] Magnesium [Mass/Vol] 1.7 mg/dL 1.6 - 2 .6 mg/dL [facility] No Panel Informationon 09-05 Interpretation and review of laboratory results Abnormal [facility] TACROLIMUS LEVEL, TROUGH (IN E DRUG LEVEL)Ordered By: Raymundo Mehta on 09-05-2023 Interpretation and review of laboratory results Normal [facility] Tacrolimus (Bld) [Mass/Vol] 5.3 ng/mL [facility] TACROLIMUS LEVEL, TROUGH (IN E DRUG LEVEL)on 09-05-2023 Tacrolimus, Trough 5.3 ng/mL Normal Bone Susana ow Transplant: 4.0-12.0, Therapeutic: 5.0-15.0 [facility] Comment on above: Order Comment: Pleas e draw at specified interval PRIOR to dose. Do not hold dose to wait for level. Specimens batched twice per day, (M-) and once per day weekendsMethod performed is a chemiluminescent microparticle immunoasssay on the [employer] i2000.The range is based on experience at [facility] and users should be aware that target concentrations vary widely depending on concomitant therapy, time post-transplant, and desired degree of immunosuppression. Performed By: #### T ACRO ####[facility] (DEFAULT)[address] [place] [address] ARTERIAL BLOOD GAS (FULL GOSS EL)on 09-04-2023 Base Excess -1.2 mmol/L Normal -3.0-3.0 [facility] Comment on above: Performed By: #### Vale UNDERWOOD ####[facility] (DEFAULT)[address] [place] [address] Carboxyhemoglobin 0.7 % Normal <=1.5 [facility] Comment on above: Performed By: #### G YASMINE ####[facility] (DEFAULT)[address] [place] [address] Glucose [Mass/Vol] 159 mg/dL High 70-99 [facility] Comment on above: Performed By: #### G YASMINE ####[facility] (DEFAULT)[address] [place] [address] HCO3 (Bld) [Moles/Vol] 22 mmol/L Normal 22-28 [facility] Comment on above: Performed By: #### G ASALL ####[facility] (DEFAULT)[address] [place] [address] Hematocrit (Bld) [Volume fraction] 38.0 % Low 40.2-50.4 [facility] Comment on above: Performed By: #### G ASAASHISH ####[facility] (DEFAULT)[address] [place] [address] Hemoglobin (Bld) [Mass/Vol] 12.6 g/dL Low 13.4-16.8 [facility] Comment on above: Performed By: #### G ASAASHISH ####[facility] (DEFAULT)[address] [place] [address] Ionized Calcium, Whole Blood 4.79 mg/dL Normal 4.60-5.30 [facility] Comment on above: Performed By: #### G YASMINE ####[facility] (DEFAULT)[address] [place] [address] Lactate, Whole Blood 2.0 mmol/L High 0.5-1.6 [facility] Comment on above: Performed By: #### G ASAASHISH ####[facility] (DEFAULT)[address] [facility] [place] [address] Methemoglobin 0.0 % Normal <=1.5 [facility] Comment on above: Performed By: #### G ASAASHISH ####[facility] (DEFAULT)[address] [place] [address] Oxyhemoglobin 91 % Low 94-98 [facility] Comment on above: Performed By: #### G ASAASHISH ####[facility] (DEFAULT)[address] [facility] [address] pCO2 30 mm Hg Low 32-48 [facility] Comment on above: Performed By: #### G YASMINE ####[facility] (DEFAULT)[address] [place] [address] pH (Bld) 7.48 [pH] High 7.35-7.45 [facility] Comment on above: Performed By: #### G YASMINE ####[facility] (DEFAULT)[address] [place] [address] [place] [address] pO2 62 mm Hg Low 83-108 [facility] Comment on above: Performed By: #### G YASMINE ####[facility] (DEFAULT)[address] [place] [address] Potassium [Moles/Vol] 4.2 mmol/L Normal 3.5-5.0 [facility] Comment on above: Performed By: #### G YASMINE ####[facility] (DEFAULT)[address] [place] [address] sO2 92 % Low 94-98 [facility] Comment on above: Performed By: #### Vale UNDERWOOD ####[facility] (DEFAULT)[address] [place] [address] Sodium [Moles/Vol] 130 mmol/L Low 135-145 [facility] Comment on above: Performed By: #### G YASMINE ####[facility] (DEFAULT)[address] [place] [address] Specimen type Nom (Spec) Arterial Normal [facility] Comment on above: Performed By: #### Vale UNDERWOOD ####[facility] (DEFAULT)[address] [place] [address] Base excess Calc (Bld) [Moles/Vol] -1.2000 mmol/L [...] Hospital Methemoglobin (Bld) [Mass fraction] 0.0 % [facility] - 1.5 % [facility] Oxygen [...] Hospital Specimen source Nom (Unsp spec) Arterial [facility] Bacteria identified Respirat ory culture Nom (Unsp spec)on 09-04-2023 Bacteria identified Cx Nom (Unsp spec) NO GROWTH DAY 2 OF 2 [facility] Microscopic observation Other stain Nom (Unsp spec) [facility] Other stain Nom (Unsp spec) Neutrophils, Rare [facility] Microscopic observation Other stain Nom (Unsp spec) Red Blood Cells Present [facility] Microscopic observation Other stain Nom (Unsp spec) No organisms seen [facility] Bacteria identified Respirat ory culture Nom (Unsp spec)Ordered By: Jose Salagdo on 09-04-2023 Bacteria identified Cx Nom (Unsp spec) NO GROWTH DAY 2 OF 2 [facility] Microscopic observation Other stain Nom (Unsp spec) Cytocentrifuge preparation [facility] Microscopic observation Other stain Nom (Unsp spec) Neutrophils, Moderate [facility] Microscopic observation Other stain Nom (Unsp spec) Red Blood Cells Present [facility] Microscopic observation Other stain Nom (Unsp spec) No organisms seen [facility] CBC,PLATELETSon 09-04-2023 Hematocrit (Bld) [Volume fraction] 38.7 % Low 39.6-48.8 [facility] Comment on above: Performed By: #### [place] [facility] ####[facility] (DEFAULT)[address] [place] [address] Hemoglobin (Bld) [Mass/Vol] 12.3 g/dL Low 13.4-16.8 [facility] Comment on above: Performed By: #### H [facility] ####[facility] (DEFAULT)[address] [place] [address] MCV (RBC) [Entitic vol] 87.8 fL Normal 79.0-94.5 [facility] Comment on above: Performed By: #### [facility] [place] ####[facility] (DEFAULT)[address] [place] [address] Mean Cell Hgb 27.9 pg Normal 26.1-33.3 [facility] Comment on above: Performed By: #### H [facility] [place] ####[facility] (DEFAULT)[address] [place] [address] Mean Cell Hgb Conc 31.8 g/dL Low 31.9-36.5 [facility] Comment on above: Performed By: #### H [facility] ####[facility] (DEFAULT)[address] [place] [address] Platelet mean volume (Bld) [Entitic vol] 9.8 fL Normal 8.7-12.3 [facility] Comment on above: Performed By: #### H EMO ####[facility] (DEFAULT)[address] [place] [address] Platelets (Bld) [#/Vol] 173 10*3/uL Normal 146-337 [facility] Comment on above: Performed By: #### H EMO ####[facility] (DEFAULT)[address] [place] [address] RBC (Bld) [#/Vol] 4.41 10*6/uL Normal 4.38-5.83 [facility] Comment on above: Performed By: #### H EMO ####[facility] (DEFAULT)[address] [place] [address] RBC Distribution 13.2 % Normal 10.9-14.3 [facility] Comment on above: Performed By: #### H EMO ####[facility] (DEFAULT)[address] [place] [address] WBC (Bld) [#/Vol] 4.57 10*3/uL Normal 3.73-10.10 [facility] Comment on above: Performed By: #### H EMO ####[facility] (DEFAULT)[address] [place] [address] Erythrocyte distribution width (RBC) [Ratio] 13.2 % [...] Private Hospital RBC (Bld) [#/Vol] 4.41 10*6/uL [facility] WBC (Bld) [#/Vol] 4.57 10*3/uL 3.73 - 10. 10 K/uL [facility] CHEM 7 (LYTES,BUN,CREA,GLUC) on 09-04-2023 Anion gap [Moles/Vol] 16 mmol/L Normal 7-17 [facility] Comment on above: Performed By: #### NATHANIEL RAMÍREZ, HFP ####[facility] (DEFAULT)[address] [place] [address] Chloride [Moles/Vol] 104 mmol/L Normal 98-108 [facility] Comment on above: Performed By: #### NATHANIEL RAMÍREZ, HFP ####[facility] (DEFAULT)[address] [place] [address] CO2 [Moles/Vol] 18 mmol/L Low 21-31 [facility] Comment on above: Performed By: #### NATHANIEL RAMÍREZ, HFP ####[facility] (DEFAULT)[address] [place] [address] Creatinine [Mass/Vol] 1.22 mg/dL Normal 0.70-1.30 [facility] Comment on above: Performed By: #### NATHANIEL RAMÍREZ, HFP ####[facility] (DEFAULT)[address] [place] [address] GFR/1.73 sq M.predicted among non-blacks MDRD (S/P/Bld) [Vol rate/Area] 71 mL/min/{1.73_m2} Normal >=60 [facility] Comment on above: Result Comment: Repo rted eGFR is based on the CKD-EPI 2020 equation using creatinine, age, and sex. Performed By: #### NATHANIEL RAMÍREZ, HFP ####[facility] (DEFAULT)[address] [place] [address] Glucose [Mass/Vol] 124 mg/dL High 70-99 [facility] Comment on above: Performed By: #### NATHANIEL RAMÍREZ, HFP ####[facility] (DEFAULT)[address] [place] [address] Osmolality [Osmolality] 284 mosm/kg Normal 278-305 [facility] Comment on above: Performed By: #### NATHANIEL RAMÍREZ, HFP ####[facility] (DEFAULT)[address] [place] [address] Potassium [Moles/Vol] 3.9 mmol/L Normal 3.5-5.0 [facility] Comment on above: Performed By: #### NATHANIEL RAMÍREZ, HFP ####[facility] (DEFAULT)[address] [place] [address] Sodium [Moles/Vol] 134 mmol/L Low 135-145 [facility] Comment on above: Performed By: #### NATHANIEL RAMÍREZ, HFP ####[facility] (DEFAULT)[address] [place] [address] Urea nitrogen [Mass/Vol] 15 mg/dL Normal 7-25 [facility] Comment on above: Performed By: #### NATHANIEL RAMÍREZ, HFP ####[facility] (DEFAULT)[address] [place] [address] Urea nitrogen/Creatinine [Mass ratio] 12 mg/mg Normal [facility] Comment on above: Performed By: #### M NATHANIEL BLOOM, HFP ####[facility] (DEFAULT)[address] [place] [address] Anion gap [Moles/Vol] 16 mmol/L 7 - 17 mmol/L [facility] Chloride [Moles/Vol] 104 mmol/L 98 - 10 8 mmol/L [facility] CO2 [Moles/Vol] 18 mmol/L Low 21 - 31 mmol/L [facility] Creatinine [Mass/Vol] 1.22 mg/dL 0.70 - 1.30 mg/dL [facility] eGFR, CKD-EPI, Male 71 - PINF [facility] Glucose [Mass/Vol] 124 mg/dL High 70 - 99 mg/dL [facility] Osmolality Calc [Osmolality] 284 [facility] Potassium [Moles/Vol] 3.9 mmol/L [...] PANELon Albumin [Mass/Vol] 3.0 g/dL Low 3.5-5.0 [facility] Comment on above: Performed By: #### M NATHANIEL BLOOM, HFP ####[facility] (DEFAULT)[address] [place] [address] ALP [Catalytic activity/Vol] 112 U/L Normal 32-126 [facility] Comment on above: Performed By: #### NATHANIEL RAMÍREZ, HFP ####[facility] (DEFAULT)[address] [place] [address] ALT [Catalytic activity/Vol] 22 U/L Normal 10-52 [facility] Comment on above: Performed By: #### M HELEN BLOOMM7, HFP ####[facility] (DEFAULT)[address] [place] [address] AST [Catalytic activity/Vol] 30 U/L Normal 10-39 [facility] Comment on above: Performed By: #### M MERLE CHM7, HFP ####[facility] (DEFAULT)[address] [place] [address] Bilirubin [Mass/Vol] 1.2 mg/dL Normal <1.5 [facility] Comment on above: Performed By: #### Rod BLOOM CHM7, HFP ####[facility] (DEFAULT)[address] [place] [address] Bilirubin.indirect [Mass/Vol] 0.4 mg/dL High <0.3 [facility] Comment on above: Performed By: #### M HELEN BLOOMM7, HFP ####[facility] (DEFAULT)[address] [place] [address] Protein [Mass/Vol] 6.4 g/dL Normal 6.4-8.3 [facility] Comment on above: Performed By: #### M HELEN BLOOMM7, HFP ####[facility] (DEFAULT)[address] [place] [address] Albumin [Mass/Vol] 3.0 g/dL Low 3.5 - [...] Specimen source Nom (Unsp spec) BAL RML [facility] Laboratory - Microbiology an d Antimicrobial susceptibilityon 09-04-2023 CMV DNA ESTELITA+probe Ql (Unsp spec) Negative Negative [facility] MAGNESIUMon 09-04-2023 Magnesium [Mass/Vol] 1.4 mg/dL Low 1.6-2.6 [facility] Comment on above: Performed By: #### M , M7, HFP ####[facility] (DEFAULT)[address] [place] [address] Magnesium [Mass/Vol] 1.4 mg/dL Low 1.6 - 2 .6 mg/dL [facility] No Panel Informationon 09-04 Annotation comment [Interpretation] Narrative DNR [facility] PN Report Status DNR [facility] Pneumocystis jiroveci,PCR result Negative Not Applicable [facility] Interpretation and review of laboratory results Abnormal [facility] PNEUMOCYSTIS JIROVECI,PCRon 09-04-2023 Specimen source Nom (Unsp spec) BAL LLL [facility] Specimen source Nom (Unsp spec) BAL RML [facility] Portable XR Chest Viewson RADIOLOGY RADIOLOGY [facility] Radiology Study observation (narrative) [facility] Portable XR Chest ViewsOrder ed By: Joanie Nugent on 09-04-2023 [facility] Work Phone: TACROLIMUS LEVEL, TROUGH (IN E DRUG LEVEL)on 09-04-2023 Interpretation and review of laboratory results Abnormal [facility] Tacrolimus (Bld) [Mass/Vol] 3.6 ng/mL Low [facility] Tacrolimus, Trough 3.6 ng/mL Low Bone Susana ow Transplant: 4.0-12.0, Therapeutic: 5.0-15.0 [facility] Comment on above: Order Comment: Pleas e draw at specified interval PRIOR to dose. Do not hold dose to wait for level. Specimens batched twice per day, (M-F) and once per day weekendsMethod performed is a chemiluminescent microparticle immunoasssay on the [employer] i2000.The range is based on experience at [facility] and users should be aware that target concentrations vary widely depending on concomitant therapy, time post-transplant, and desired degree of immunosuppression. Performed By: #### T ACRO ####[facility] (DEFAULT)[address] [place] [address] XR CHEST PORTABLEon 09-04-20 23 XR CHEST PORTABLE Normal [facility] ASPERGILLUS ANTIGEN, BALon 1 Galactomannan Ag IA Qn (Unsp spec) <0.500 [facility] Galactomannan Ag IA Qn (Unsp spec) <0.500 [facility] BAL CONSULTOrdered By: Noa Peralta [...] Jame (Unsp spec) [Interp] Leonardo Peralta MD [facility] BRONCHOSCOPYon 09-03-2023 LAB, [facility] CBC,PLATELETSon 09-03-2023 Hematocrit (Bld) [Volume fraction] 39.6 % Normal 39.6-48.8 [facility] Comment on above: Performed By: #### [place] [facility] [place] ####[facility] (DEFAULT)[address] [place] [address] Hemoglobin (Bld) [Mass/Vol] 12.8 g/dL Low 13.4-16.8 [facility] Comment on above: Performed By: #### [place] [facility] [place] ####[facility] (DEFAULT)[address] [place] [address] MCV (RBC) [Entitic vol] 85.9 fL Normal 79.0-94.5 [facility] Comment on above: Performed By: #### H EMOGC ####[facility] (DEFAULT)[address] [place] [address] Mean Cell Hgb 27.8 pg Normal 26.1-33.3 [facility] Comment on above: Performed By: #### H EMOGC ####[facility] (DEFAULT)[address] [facility] [place] [address] Mean Cell Hgb Conc 32.3 g/dL Normal 31.9-36.5 [facility] Comment on above: Performed By: #### H EMOGC ####[facility] (DEFAULT)[address] [facility] [place] [address] Platelet mean volume (Bld) [Entitic vol] 9.4 fL Normal 8.7-12.3 [facility] Comment on above: Performed By: #### H EMOGC ####[facility] (DEFAULT)[address] [place] [address] Platelets (Bld) [#/Vol] 222 10*3/uL Normal 146-337 [facility] Comment on above: Performed By: #### H EMOGC ####[facility] (DEFAULT)[address] [place] [address] RBC (Bld) [#/Vol] 4.61 10*6/uL Normal 4.38-5.83 [facility] Comment on above: Performed By: #### H EMOGC ####[facility] (DEFAULT)[address] [place] [address] RBC Distribution 13.4 % Normal 10.9-14.3 [facility] Comment on above: Performed By: #### H EMOGC ####[facility] (DEFAULT)[address] [place] [address] WBC (Bld) [#/Vol] 4.36 10*3/uL Normal 3.73-10.10 [facility] Comment on above: Performed By: #### [place] [facility] [place] ####[facility] (DEFAULT)[address] [place] [address] Erythrocyte distribution width (RBC) [Ratio] 13.4 % [...] Private [facility] RBC (Bld) [#/Vol] 4.61 10*6/uL [facility] WBC (Bld) [#/Vol] 4.36 10*3/uL 3.73 - 10. 10 K/uL [facility] CHEM 7 (LYTES,BUN,CREA,GLUC) on 09-03-2023 Anion gap [Moles/Vol] 12 mmol/L Normal 7-17 [facility] Comment on above: Performed By: #### M GO, CHM7, [facility] ####[facility] (DEFAULT)[address] [place] [address] Chloride [Moles/Vol] 104 mmol/L Normal 98-108 [facility] Comment on above: Performed By: #### NATHANIEL RAMÍREZ, HFP ####[facility] (DEFAULT)[address] [facility] [place] [address] CO2 [Moles/Vol] 24 mmol/L Normal 21-31 [facility] Comment on above: Performed By: #### NATHANIEL RAÍMREZ, HFP ####[facility] (DEFAULT)[address] [place] [address] Creatinine [Mass/Vol] 1.20 mg/dL Normal 0.70-1.30 [facility] Comment on above: Performed By: #### NATHANIEL RAMÍREZ, HFP ####[facility] (DEFAULT)[address] [place] [address] GFR/1.73 sq M.predicted among non-blacks MDRD (S/P/Bld) [Vol rate/Area] 73 mL/min/{1.73_m2} Normal >=60 [facility] Comment on above: Result Comment: Repo rted eGFR is based on the CKD-EPI 2020 equation using creatinine, age, and sex. Performed By: #### NATHANIEL RAMÍREZ, HFP ####[facility] (DEFAULT)[address] [place] [address] Glucose [Mass/Vol] 112 mg/dL High 70-99 [facility] Comment on above: Performed By: #### NATHANIEL RAMÍREZ, HFP ####[facility] (DEFAULT)[address] [place] [address] Osmolality [Osmolality] 288 mosm/kg Normal 278-305 [facility] Comment on above: Performed By: #### NATHANIEL RAMÍREZ, HFP ####[facility] (DEFAULT)[address] [facility] [place] [address] Potassium [Moles/Vol] 4.1 mmol/L Normal 3.5-5.0 [facility] Comment on above: Performed By: #### M TJ BLOOM7, HFP ####[facility] (DEFAULT)[address] [facility] [place] [address] Sodium [Moles/Vol] 136 mmol/L Normal 135-145 [facility] Comment on above: Performed By: #### NATHANIEL RAMÍREZ, HFP ####[facility] (DEFAULT)[address] [place] [address] Urea nitrogen [Mass/Vol] 17 mg/dL Normal 7-25 [facility] Comment on above: Performed By: #### NATHANIEL RAMÍREZ, HFP ####[facility] (DEFAULT)[address] [place] [address] Urea nitrogen/Creatinine [Mass ratio] 14 mg/mg Normal [facility] Comment on above: Performed By: #### NATHANIEL RAMÍREZ, HFP ####[facility] (DEFAULT)[address] [place] [address] Anion gap [Moles/Vol] 12 mmol/L 7 - 17 mmol/L [facility] Chloride [Moles/Vol] 104 mmol/L 98 - 10 8 mmol/L [facility] CO2 [Moles/Vol] 24 mmol/L 21 - 31 mmol/L [facility] Creatinine [Mass/Vol] 1.20 mg/dL 0.70 - 1.30 mg/dL [facility] eGFR, CKD-EPI, Male 73 - [facility]F [facility] Glucose [Mass/Vol] 112 mg/dL High 70 - 99 mg/dL [facility] Osmolality Calc [Osmolality] 288 [facility] Potassium [Moles/Vol] 4.1 mmol/L 3.5 - 5.0 mmol/L [facility] Sodium [Moles/Vol] 136 mmol/L 135 - 145 mmol/L [facility] Urea nitrogen [Mass/Vol] 17 mg/dL 7 - 25 mg/dL [facility] Urea nitrogen/Creatinine [Mass ratio] 14 mg/mg [facility] CYTOLOGY, NON-GYNOrdered By: Sherice Jimenez on 09-03-2023 CYTOLOGIC DIAGNOSIS b3kkvDNpGAOuwFFdBMMlW4hdfnC kWLLevCBmK0XrafzyTPqgEZ6mSZ 9qbEsqiYUcmGEnXETjChZhk7cig 624gSMva4uuRZQZdwizqQt6j6ye TJBDjE7eq7x0gV34PXCzgI2ygUK iRPxtgmSeIKcjjtZvtvOeLmj8RL E4dKklEvswdDO3gLWuqSZ2GIkpx 1HoxUpopAcvWAA9NYGpJegiURgh dRZ4lBKziCcsaZFaEU2qm9kbuXL 6zcWjYJD9oPadyAT7vXptcgsnm0 uwlWV7gUG3QWtuiAR9QPqhDfOtH 3ctAMAjkK5dG40rC8nlXEZadTuo OLudUARfmCU6NNP1ELMwf3yaIDG ghZBhrPFfAfTxNFbyPvt5e2rlIB DugC67wNSqrwX3dYufGMssiON0L H30LRiwy2RwBNNboBavZOBlsU5p YzIzXGxldmVsbmZjbjIzXGxldmV fltMxAPbawlKdm1GmogGlrGY7JU ogiuLinRR3hPpoSOBhQ3U1B769H QkiboMqxtGyCdUmmwt4XFRexQqd bGlzdGxldmVsXGxldmVsbmZjMjN riXG1WKoqIuMtUuAhgDD3RFpqCu ZepJP8TWhsaGIylLF9TNgbhXO5A Ci8CFd9XOxcVDetTpk7rMyvjJG3 GJkwyL8aHJNvF32kMxX4a4aelXM 9qIS2VUpzlHE1FRgxYqFfV8trUW MehL5gR81dL4mbAHApnIfrRTfxZ KNweQA3TOR4VMYda9kvBMWfaYAs qZPzNwGmKCliUqd3l2wtDLXtzU8 9aUYgmdO6sRfiFR77JBpqd6YwRS UfcJsiALSzmC2qJgPqJQgbpbZvd mZjbjIzXGxldmVsamMwXGxldmVs z0ScrlJowZI3FWcfjuOsyMY3gIg gVHVaP3S5G639FOgarsKhtpLtWa Agvpy0UWRscHmegXyupWnleeOkG TyixxOqdnDuJnMwyHG7IMfoJtDh GdIwdIH2IKzgJbIhuYY9JJoliGS roMW4PGvorYX9QPz4QVq7UQszUC nuFjj7fDmbwKT4NLbtqW7vWAWmA 32gMtZ3q4vudFY6pWU0YNnsqFY9 RSavEfYkA3bfXKWjpZ8jI44tE8l tMBFceOvzDXlcSXJycCJ4YGC4VX Epo2joUJQyqTQlwKRnKpUtUFlfE bu5z6jxEYThtM87jUZkfuN8iBkc IM20SLmcz1VsBKXfgIdcVQRlfK2 mYzIzXGxldmVsbmZjbjIzXGxldm WhkkZgPIkefiAfj8WqneCeaLI6B MwjxdMpaRO0eWbxTZKqN6D4U244 BKlmqmPfudVrPfNzvzt3WZNjsLo cbGlzdGxldmVsXGxldmVsbmZjMj ZrcVZ8PNjmPyDqPeKgsRT6MWgqF oVidXR3PJxjgKHlaHV1RPejmMJ6 ZOz3EJg9RPjwJOkvKer0lYowfIQ 2NRtxyY3rKYLrB88gGxW4gX18CK jwgSdhgW15IVFpaTViuIXwjME2L KatkMwlmU21YMRdkMSlSChxh3Hk AJYjKkD8DWV3JKNigCkzhA34XUS obYCaE166szRhNUkmTC62PDPhtB LxohYpJcUpOSEphFClaUQ7BJTcS D3yqnhqPXtjPYweOVEcluO4WAMi sBPrW4XwVJIlQL7wzlgjPGV2REy rNSBwFCU0BdPlRGBkf8Kwdyz5Ri FlhLg7p2tbMRJlXLHdcQxxn0jcV AP5NNWfdQSjI8avdM7sPYBeDS7e lizfi0nwCXgjZAxhRGYbzHI4soB 3FSRjaJBpC2WsjJ9iFKKrMLWqga WumCcbcU2oHcjsxsFlZUVrDQZLI gYUIf2PT7jLCHxSTS4UQBLiIERX YCuEZHVJMIUUKXbKD8BJYIcZMjA uUOWfOGDoB1dRG7dTK4mrYbzvIv AsVJbpMMOxAgUlO2BvNFXjcsdxG UKzXRDHIO1CEHZALKQJOt7KUQU1 EOTpyyyhfMF6ILlarmPorNo2mTW ibOvxwJ6jVtszvwZtNPUdQNDIys DRWHkmE77eyiQbW1YwmNDwZHSqP XxrYF40aQUeNSAmcSUbEIp6lF8r RXefqZvmjmBLaMHvxB1zlifyIKu jZjBccGFyXGxpMFxsczBccGFyfQ == [facility] Work Phone: Case Report [facility] Work Phone: Clinical History p1fmkYPzZILudULuZGDf A4bdrqJ wCTMjqCRxP2DtznmdYQkxIV9iYX 2zrLhcmZCuaHQqJCMsSgRno0nue 693qFSry2wrKTFAivacmEq6qVsy T90is9V2HbsnH5geTJJjUGujWIY wAZqfuZFnRJc3FOSzdJJzsiWfLs EvRGGvwBHhzYT4NIEmMS0gmokhW BuxGIihCDXuzeZ6SKJxcCHwX4Gy RUQbRJ9aagsyBFN0JFsbXOLvFFR 3QmQdRZDub2Fgsku5EwXktRc7k0 daMRIaDLEmlPlfm9sdGVF0JEWhi OUyF0neuX8qEBYhXV0asitid0ya ADhuGPlsZWSgkNZ1ezI5CGHzqVM gA4IaoU1tLMFzTJLjhnHxeFafjU 5cZnMyMFxjZjEgUmVuYWwgdHJhb gVjtKBarS5xPOMbai8= [facility] Work Phone: For Immediate Release to Patient's MyChart? Yes Yes [facility] Work Phone: Gross Description v0nawUHtVAFttSArEDSn A9rxjuT bYARljLGlC3YougdrJSlpDY8dAN 5ynKlmcAMfqRCjTXVfSuZkq3ruy 326lXYvb7wyBKHRuykgtIl1tTry A73hn5A8UmegD25egTLxVPB9ZDQ vUURioEQwPPCoPEK7GBJzuZNuY2 ksABXaJK6csapmUDbyNBnjTNOcr NK4JJHwsKKtI9HzRKEeVHfnBYPo tat0ZmAhZf9flEIjfQhjXJuhNAN kXHBsYWluXGZzMjAgTExMIEJBTF whQTGnDOLfzJScBVw8AVCjvT7ry YXwqvRvbOJvaE7ecWgqXAbqPYZx QJGOVNIoxJvnBMVTDUIko2RfdZ8 ccGFyXHBhcmRccGFyXHBhcn0= [facility] Work Phone: [facility] Work Phone: HEPATIC FUNCTION PANELon Albumin [Mass/Vol] 3.2 g/dL Low 3.5-5.0 [facility] Comment on above: Performed By: #### M MERLE CHM7, HFP ####[facility] (DEFAULT)[address] [place] [address] ALP [Catalytic activity/Vol] 118 U/L Normal 32-126 [facility] Comment on above: Performed By: #### M MERLE CHM7, HFP ####[facility] (DEFAULT)[address] [place] [address] ALT [Catalytic activity/Vol] 25 U/L Normal 10-52 [facility] Comment on above: Performed By: #### M GO CHM7, HFP ####[facility] (DEFAULT)[address] [place] [address] AST [Catalytic activity/Vol] 32 U/L Normal 10-39 [facility] Comment on above: Performed By: #### M GO CHM7, HFP ####[facility] (DEFAULT)[address] [place] [address] Bilirubin [Mass/Vol] 1.0 mg/dL Normal <1.5 [facility] Comment on above: Performed By: #### M GO CHM7, HFP ####[facility] (DEFAULT)[address] [place] [address] Bilirubin.indirect [Mass/Vol] 0.3 mg/dL High <0.3 [facility] Comment on above: Performed By: #### M GO CHM7, HFP ####[facility] (DEFAULT)[address] [place] [address] Protein [Mass/Vol] 6.5 g/dL Normal 6.4-8.3 [facility] Comment on above: Performed By: #### M , CHM7, HFP ####[facility] (DEFAULT)[address] [place] [address] Albumin [Mass/Vol] 3.2 g/dL Low 3.5 - 5.0 g/dL [facility] ALP [Catalytic activity/Vol] 118 U/L [...] Critically abnormal Not Detected [facility] Histoplasma/Blastomy antonia Ag Value 5.3 ng/mL [facility] Interpretation and review of laboratory results Abnormal [facility] IMMUNOPHENOTYPING, TISSUE/FL UIDon 09-03-2023 BKR DX CODE Use Ordering Normal [facility] Comment on above: Order Comment: Pleas e lab add on to specimen collected yesterdayIMMUNOPHENOTYPING DIAGNOSISPATIENT NAME: GEORGE SLATER: 1970MRN: [id number]#: [id number] BY: Yossi Perla M.D,, Ph.D. [id number] TYPE: Bronchial Alveolar LavageLABORATORY INTERPRETATION:There is no [...] performance characteristicsdetermined The Flow Cytometry Laboratory at [facility]. It has notbeen cleared or approved by the FDA. This laboratory is certifiedunder the Clinical Laboratory Improvement Amendments (CLIA)as qualified to perform high complexity clinical laboratorytesting. This test is used for clinical purposes. It should notbe regarded as investigational or for research.The [facility] Flow Cytometry Laboratory lower limitof CLL MRD detection is 0.1% of the gated lymphocytes. Performed By: #### G IPP ####[facility] (DEFAULT)[address] [place] [address] Flow Interpretation See Comment Normal [facility] Comment on above: Order Comment: Pleas e lab add on to specimen collected yesterdayIMMUNOPHENOTYPING DIAGNOSISPATIENT NAME: GEORGE SLATER: 1970MRN: [id number]#: [id number] BY: Yossi Perla M.D,, Ph.D. [id number] TYPE: Bronchial Alveolar LavageLABORATORY INTERPRETATION:There is no [...] performance characteristicsdetermined The Flow Cytometry Laboratory at [facility]. It has notbeen cleared or approved by the FDA. This laboratory is certifiedunder the Clinical Laboratory Improvement Amendments (CLIA)as qualified to perform high complexity clinical laboratorytesting. This test is used for clinical purposes. It should notbe regarded as investigational or for research.[facility] Flow Cytometry Laboratory lower limitof CLL MRD detection is 0.1% of the gated lymphocytes. Performed By: #### G IPP ####[facility] (DEFAULT)[address] [place] [address] Flow Interpreted by: Yossi Perla MD, PhD [facility] Comment on above: Order Comment: Pleas e lab add on to specimen collected yesterdayIMMUNOPHENOTYPING DIAGNOSISPATIENT NAME: GEORGE SLATER: 1970MRN: [id number]#: [id number] BY: Yossi Perla M.D,, Ph.D. [id number] TYPE: Bronchial Alveolar LavageLABORATORY INTERPRETATION:There is no [...] performance characteristicsdetermined The Flow Cytometry Laboratory at [facility]. It has notbeen cleared or approved by the FDA. This laboratory is certifiedunder the Clinical Laboratory Improvement Amendments (CLIA)as qualified to perform high complexity clinical laboratorytesting. This test is used for clinical purposes. It should notbe regarded as investigational or for research.[facility] Flow Cytometry Laboratory lower limitof CLL MRD detection is 0.1% of the gated lymphocytes. Performed By: #### G IPP ####[facility] (DEFAULT)[address] [place] [address] MAGNESIUMon 09-03-2023 Magnesium [Mass/Vol] 1.6 mg/dL Normal 1.6-2.6 [facility] Comment on above: Performed By: #### M GO, CHM7, HFP ####[facility] (DEFAULT)[address] [place] [address] Interpretation and review of laboratory results Normal [facility] Magnesium [Mass/Vol] 1.6 mg/dL 1.6 - 2 .6 mg/dL [facility] No Panel Informationon 09-03 Interpretation and review of laboratory results Abnormal [facility] PARVOVIRUS (B19) DNA, PCR, B LOODon 09-03-2023 PARVOVIRUS B19 BY RAPID PCR Not detected Not Detected [facility] IN SPEC SOURCE Whole Blood [facility] Portable XR Chest Viewson RADIOLOGY RADIOLOGY [facility] Radiology Study observation (narrative) [facility] Portable XR Chest ViewsOrder ed By: [place] on 09-03-2023 [facility] Work Phone: XR CHEST PORTABLEon 09-03-20 23 XR CHEST PORTABLE Normal [facility] ACID FAST CULTUREon 09-02-20 23 Bacteria identified Cx Nom (Unsp spec) NO GROWTH DAY 42 OF 42 Normal [facility] Comment on above: Performed By: #### A FB ####[facility] (DEFAULT)[address] [place] [address] Fluorochrome Stain No acid Fast Bacillus Seen Normal [facility] Comment on above: Performed By: #### A FB ####[facility] (DEFAULT)[address] [place] [address] Bacteria identified Cx Nom (Unsp spec) NO GROWTH DAY 42 OF 42 Normal [facility] Comment on above: Order Comment: BAL A FB culture. Clinical suspicion for non-tuberculous mycobacteria Performed By: #### A FB ####[facility] (DEFAULT)[address] [place] [address] Fluorochrome Stain No acid Fast Bacillus Seen Normal [facility] Comment on above: Order Comment: BAL A FB culture. Clinical suspicion for non-tuberculous mycobacteria Performed By: #### A FB ####[facility] (DEFAULT)[address] [place] [address] ASPERGILLUS (GALACTOMANNAN), ANTIGENon 09-02-2023 Galactomannan Ag IA Qn <0.500 [facility] ASPERGILLUS ANTIGEN, BALon 1 Aspergillus Galactomannan Antigen, BAL <0.500 Normal <0.5 [facility] Comment on above: Result Comment: ---- ADDITIONAL INFORMATION This is a qualitative test and the resulted index value isnot indicative of disease severity. Serial testing isrecommended for patients at high risk for invasiveaspergillosis.This assay was performed using the FDA-cleared Nutshell-emazePlatelia Aspergillus Galactomannan EIA.Test Performed by:[facility] [place] [id number] Director: Rosendo Bose M.D. Ph.D.; CLIA# [id number] Performed By: #### X ASGFL ####[facility] (DEFAULT)[address] [place] [address] Aspergillus Galactomannan Antigen, BAL <0.500 Normal <0.5 [facility] Comment on above: Order Comment: BAL a spirgillus antigen Result Comment: ---- ADDITIONAL INFORMATION This is a qualitative test and the resulted index value isnot indicative of disease severity. Serial testing isrecommended for patients at high risk for invasiveaspergillosis.This assay was performed using the FDA-cleared Nutshell-emazePlatelia Aspergillus Galactomannan EIA.Test Performed by:[facility] [place], [place] [address]Maq Director: Rosendo Bose M.D. Ph.D.; CLIA# [id number] Performed By: #### X ASGFL ####[facility] (DEFAULT)[address] [place] [address] ATYPICAL BACTERIAL PNEUMONIA ,PCROrdered By: Shari Contreras [...] Ql (Unsp spec) Not detected Not Detected [facility] ATYPICAL BACTERIAL PNEUMONIA ,PCRon 09-02-2023 Bordetella Parapertussis Not detected Normal Not Detected [facility] Comment on above: Order Comment: Viral [...] by The Clinical Microbiology Laboratory at [facility]. It has not been cleared or approved by the FDA. The laboratory is required under CLIA as qualified to perform high-complexity testing. This test is used for clinical purposes. It should not be regarded as investigational or for research. Performed By: #### A TYPNE ####[facility] (DEFAULT)[address] [address] Bordetella Pertussis Not detected Normal Not Detected [facility] Comment on above: Order Comment: Viral [...] by The Clinical Microbiology Laboratory at [facility]. It has not been cleared or approved by the FDA. The laboratory is required under CLIA as qualified to perform high-complexity testing. This test is used for clinical purposes. It should not be regarded as investigational or for research. Performed By: #### A TYPNE ####[facility] (DEFAULT)[address] [address] Chlamydia Pneumoniae Not detected Normal Not Detected [facility] Comment on above: Order Comment: Viral [...] by The Clinical Microbiology Laboratory at [facility]. It has not been cleared or approved by the FDA. The laboratory is required under CLIA as qualified to perform high-complexity testing. This test is used for clinical purposes. It should not be regarded as investigational or for research. Performed By: #### A TYPNE ####[facility] (DEFAULT)[address] [address] Mycoplasma Pneumoniae Not detected Normal Not Detected [facility] Comment on above: Order Comment: Viral [...] by The Clinical Microbiology Laboratory at [facility]. It has not been cleared or approved by the FDA. The laboratory is required under CLIA as qualified to perform high-complexity testing. This test is used for clinical purposes. It should not be regarded as investigational or for research. Performed By: #### A TYPNE ####[facility] (DEFAULT)[address] [place] [address] BAL CONSULTon 09-02-2023 ALVEOLAR MACROPHAGES 33 % Normal [facility] Comment on above: Order Comment: BAL c onsultIf > 15% lymphocytes - please send for flow. Performed By: #### B ALC ####[facility] (DEFAULT)[address] [place] [address] Bal comments Correlation with microbiology stains and cultures is recommended. Correlation with viral studies is recommended. Normal [facility] Comment on above: Order Comment: BAL c onsultIf > 15% lymphocytes - please send for flow. Performed By: #### B ALC ####[facility] (DEFAULT)[address] [place] [address] Bal Diff Quik Stain Quality Check Acceptable Normal [facility] Comment on above: Order Comment: BAL c onsultIf > 15% lymphocytes - please send for flow. Performed By: #### B ALC ####[facility] (DEFAULT)[address] [place] [address] Bal Reviewed By: Leonardo Peralta MD [facility] Comment on above: Order Comment: BAL c onsultIf > 15% lymphocytes - please send for flow. Performed By: #### B ALC ####[facility] (DEFAULT)[address] [place] [address] BKR BAL INTERPRETATION Cellular specimen comprised of alveolar macrophages and small lymphocytes. No definitive microorganisms are observed. Rare degenerating cells with changes suggestive of viral cytopathic effect are noted. Moderate degenerative changes. Normal [facility] Comment on above: Order Comment: BAL c onsultIf > 15% lymphocytes - please send for flow. Performed By: #### B ALC ####[facility] (DEFAULT)[address] [facility] [place] [place] [id number] BKR DX CODE Use Ordering Normal [facility] Comment on above: Order Comment: BAL c onsultIf > 15% lymphocytes - please send for flow. Performed By: #### B ALC ####[facility] (DEFAULT)[address] [place] [address] Eosinophils/100 WBC (Bld) 0 % Normal [facility] Comment on above: Order Comment: BAL c onsultIf > 15% lymphocytes - please send for flow. Performed By: #### B ALC ####[facility] (DEFAULT)[address] [place] [address] Lymphocytes/100 WBC (Bld) 49 % Normal [facility] Comment on above: Order Comment: BAL c onsultIf > 15% lymphocytes - please send for flow. Performed By: #### B ALC ####[facility] (DEFAULT)[address] [facility] [place] [address] Neutrophils/100 WBC (Bld) 18 % Normal [facility] Comment on above: Order Comment: BAL c onsultIf > 15% lymphocytes - please send for flow. Performed By: #### B ALC ####[facility] (DEFAULT)[address] [facility] [place] [address] ALVEOLAR MACROPHAGES 32 % Normal [facility] Comment on above: Order Comment: BAL c onsult for cell differential and pathologist review. Please do flow cytometry if > 12% lymphocytes Performed By: #### B ALC ####[facility] (DEFAULT)[address] [facility] [place] [address] Bal comments Correlation with microbiology stains and cultures is recommended. Normal [facility] Comment on above: Order Comment: BAL c onsult for cell differential and pathologist review. Please do flow cytometry if > 12% lymphocytes Performed By: #### B ALC ####[facility] (DEFAULT)[address] [facility] [place] [address] Bal Diff Quik Stain Quality Check Acceptable Normal [facility] Comment on above: Order Comment: BAL c onsult for cell differential and pathologist review. Please do flow cytometry if > 12% lymphocytes Performed By: #### B ALC ####[facility] (DEFAULT)[address] [facility] [place] [address] Bal Reviewed By: Leonardo Peralta MD [facility] Comment on above: Order Comment: BAL c onsult for cell differential and pathologist review. Please do flow cytometry if > 12% lymphocytes Performed By: #### B ALC ####[facility] (DEFAULT)[address] [place] [address] BKR BAL INTERPRETATION Cellular specimen comprised of alveolar macrophages and small lymphocytes. No definitive microorganisms are observed. Moderate degenerative changes. Normal [facility] Comment on above: Order Comment: BAL c onsult for cell differential and pathologist review. Please do flow cytometry if > 12% lymphocytes Performed By: #### B ALC ####[facility] (DEFAULT)[address] [facility] [place] [address] BKR DX CODE Use Ordering Normal [facility] Comment on above: Order Comment: BAL c onsult for cell differential and pathologist review. Please do flow cytometry if > 12% lymphocytes Performed By: #### B ALC ####[facility] (DEFAULT)[address] [facility] [place] [address] Eosinophils/100 WBC (Bld) 0 % Normal [facility] Comment on above: Order Comment: BAL c onsult for cell differential and pathologist review. Please do flow cytometry if > 12% lymphocytes Performed By: #### B ALC ####[facility] (DEFAULT)[address] [facility] [place] [address] Lymphocytes/100 WBC (Bld) 57 % Normal [facility] Comment on above: Order Comment: BAL c onsult for cell differential and pathologist review. Please do flow cytometry if > 12% lymphocytes Performed By: #### B ALC ####[facility] (DEFAULT)[address] [facility] [place] [address] Neutrophils/100 WBC (Bld) 11 % Normal [facility] Comment on above: Order Comment: BAL c onsult for cell differential and pathologist review. Please do flow cytometry if > 12% lymphocytes Performed By: #### B ALC ####[facility] (DEFAULT)[address] [place] [address] BRONCHOSCOPYon 09-02-2023 Radiology Study observation (narrative) [facility] Bacteria identified Cx Nom ( Bld)on 09-02-2023 Bacteria identified Cx Nom (Unsp spec) NO GROWTH DAY 5 OF 5 [facility] CBC,PLATELETSon 09-02-2023 Hematocrit (Bld) [Volume fraction] 39.9 % Normal 39.6-48.8 [facility] Comment on above: Performed By: #### H EMOGC ####[facility] (DEFAULT)[address] [place] [address] Hemoglobin (Bld) [Mass/Vol] 12.9 g/dL Low 13.4-16.8 [facility] Comment on above: Performed By: #### H EMOGC ####[facility] (DEFAULT)[address] [facility] [place] [address] MCV (RBC) [Entitic vol] 86.4 fL Normal 79.0-94.5 [facility] Comment on above: Performed By: #### H EMOGC ####[facility] (DEFAULT)[address] [facility] [place] [address] Mean Cell Hgb 27.9 pg Normal 26.1-33.3 [facility] Comment on above: Performed By: #### H EMOGC ####[facility] (DEFAULT)[address] [facility] [place] [address] Mean Cell Hgb Conc 32.3 g/dL Normal 31.9-36.5 [facility] Comment on above: Performed By: #### H EMO ####[facility] (DEFAULT)[address] [place] [address] Platelet mean volume (Bld) [Entitic vol] 9.5 fL Normal 8.7-12.3 [facility] Comment on above: Performed By: #### H EMOGC ####[facility] (DEFAULT)[address] [place] [address] Platelets (Bld) [#/Vol] 210 10*3/uL Normal 146-337 [facility] Comment on above: Performed By: #### H EMOGC ####[facility] (DEFAULT)[address] [facility] [place] [address] RBC (Bld) [#/Vol] 4.62 10*6/uL Normal 4.38-5.83 [facility] Comment on above: Performed By: #### H EMO ####[facility] (DEFAULT)[address] [facility] [place] [address] RBC Distribution 13.2 % Normal 10.9-14.3 [facility] Comment on above: Performed By: #### H EMOGC ####[facility] (DEFAULT)[address] [facility] [place] [address] WBC (Bld) [#/Vol] 4.12 10*3/uL Normal 3.73-10.10 [facility] Comment on above: Performed By: #### H EMOGC ####[facility] (DEFAULT)[address] [place] [address] Erythrocyte distribution width (RBC) [Ratio] 13.2 % [...] [facility] RBC (Bld) [#/Vol] 4.62 10*6/uL [facility] WBC (Bld) [#/Vol] 4.12 10*3/uL 3.73 - 10. 10 K/uL [facility] CHEM 7 (LYTES,BUN,CREA,GLUC) on 09-02-2023 Anion gap [Moles/Vol] 13 mmol/L Normal 7-17 [facility] Comment on above: Performed By: #### H ANTWAN MGRogelio CHM7 ####[facility] (DEFAULT)[address] [place] [address] Chloride [Moles/Vol] 105 mmol/L Normal 98-108 [facility] Comment on above: Performed By: #### H ANTWAN MGRogelio CHM7 ####[facility] (DEFAULT)[address] [place] [address] CO2 [Moles/Vol] 22 mmol/L Normal 21-31 [facility] Comment on above: Performed By: #### H ANTWAN MGRogelio CHM7 ####[facility] (DEFAULT)[address] [place] [address] Creatinine [Mass/Vol] 1.25 mg/dL Normal 0.70-1.30 [facility] Comment on above: Performed By: #### H ANTWAN MGO CHM7 ####[facility] (DEFAULT)[address] [place] [address] GFR/1.73 sq M.predicted among non-blacks MDRD (S/P/Bld) [Vol rate/Area] 69 mL/min/{1.73_m2} Normal >=60 [facility] Comment on above: Result Comment: Repo rted eGFR is based on the CKD-EPI 2020 equation using creatinine, age, and sex. Performed By: #### H ANTWAN MGO CHM7 ####[facility] (DEFAULT)[address] [facility] [place] [address] Glucose [Mass/Vol] 105 mg/dL High 70-99 [facility] Comment on above: Performed By: #### H ANTWAN MGO CHM7 ####[facility] (DEFAULT)[address] [facility] [place] [address] Osmolality [Osmolality] 287 mosm/kg Normal 278-305 [facility] Comment on above: Performed By: #### H ANTWAN MGO CHM7 ####[facility] (DEFAULT)[address] [place] [address] Potassium [Moles/Vol] 4.3 mmol/L Normal 3.5-5.0 [facility] Comment on above: Performed By: #### H FP MGO CHM7 ####[facility] (DEFAULT)[address] [facility] [address] Sodium [Moles/Vol] 136 mmol/L Normal 135-145 [facility] Comment on above: Performed By: #### H FP MGO, CHM7 ####[facility] (DEFAULT)[address] [facility] [address] Urea nitrogen [Mass/Vol] 16 mg/dL Normal 7-25 [facility] Comment on above: Performed By: #### H FP MGO CHM7 ####[facility] (DEFAULT)[address] [place] [address] Urea nitrogen/Creatinine [Mass ratio] 13 mg/mg Normal [facility] Comment on above: Performed By: #### H FP, MGO, CHM7 ####[facility] (DEFAULT)[address] [place] [address] Anion gap [Moles/Vol] 13 mmol/L 7 - 17 mmol[facility]L [facility] Chloride [Moles/Vol] 105 mmol/L 98 - 10 8 mmol/L [facility] CO2 [Moles/Vol] 22 mmol/L 21 - 31 mmol/L [facility] Creatinine [Mass/Vol] 1.25 mg/dL 0.70 - 1.30 mg/dL [facility] eGFR, CKD-EPI, Male 69 - PINF [facility] Glucose [Mass/Vol] 105 mg/dL High 70 - 99 mg/dL [facility] Osmolality Calc [Osmolality] 287 [facility] Potassium [Moles/Vol] 4.3 mmol/L 3.5 - 5.0 mmol/L [facility] Sodium [Moles/Vol] 136 mmol/L 135 - 145 mmol/L [facility] Urea nitrogen [Mass/Vol] 16 mg/dL 7 - 25 mg/dL [facility] Urea nitrogen/Creatinine [Mass ratio] 13 mg/mg [facility] CMV PCR,FLUIDS,URINE,EYE ETC on 09-02-2023 CMV by PCR Result Negative Normal Negative [facility] Comment on above: Result Comment: ---- ADDITIONAL INFORMATION This test was developed and its performance characteristicsdetermined by [facility] in a manner consistent with CLIArequirements. This test has not been cleared or approved bythe U.S. Food and Drug Administration.Test Performed by:[address] [address]Ikp Director: Rosendo Bose M.D. Ph.D.; CLIA# [id number] Performed By: #### Y CMV ####[facility] (DEFAULT)[address] [place] [address] CMV BY PCR SOURCE BAL RML Normal [facility] Comment on above: Performed By: #### Y CMV ####[facility] (DEFAULT)[address] [place] [address] CMV by PCR Result Negative Normal Negative [facility] Comment on above: Result Comment: ---- ADDITIONAL INFORMATION This test was developed and its performance characteristicsdetermined by [facility] in a manner consistent with CLIArequirements. This test has not been cleared or approved bythe U.S. Food and Drug Administration.Test Performed by:[address] Director: Rosendo Bose M.D. Ph.D.; CLIA# [id number] Performed By: #### Y CMV ####[facility] (DEFAULT)[address] [place] [address] CMV BY PCR SOURCE BAL LLL Normal [facility] Comment on above: Performed By: #### Y CMV ####[facility] (DEFAULT)[address] [place] [address] CYTOLOGY, NON-GYNon 09-02-20 CYTOLOGIC DIAGNOSIS [facility] Comment on above: Result Comment: A. B RONCHOALVEOLAR LAVAGE, LEFT LOWER LOBE (CYTOLOGY):FINAL DIAGNOSIS:No Malignant Cells Are IdentifiedHypocellular Specimen Performed By: #### N ONGNNONFNA ####[facility] (DEFAULT)[address] [place] [address] Case Report Normal [facility] Comment on above: Result Comment: Medi abhishek Cytology Report Case: [id number] Provider: Crow Diaz MD Collected: 09/02/2023 08:38 AMOrdering Location: R10W Received: 09/02/2023 10:44 AMPathologist: KENTON Caglepecimen: BRONCHOALVEOLAR LAVAGE, LLL BAL Performed By: #### N ONGNNONFNA ####[facility] (DEFAULT)[address] [place] [address], [place] [address] Clinical History Renal transplant. Normal O [facility] Comment on above: Performed By: #### N ONGNGRAEMEFNA ####[facility] (DEFAULT)[address] [place] [address] Gross Description Normal [facility] Comment on above: Result Comment: LLL BAL1 ml hazy colorless fld unfixed1 TP slide Pap stainFor Immediate Release to Patient's MyChart? Yes Performed By: #### N ONGNNONFNA ####[facility] (DEFAULT)[address] [place] [address], [place] [address] FUNGUS CULTUREon 09-02-2023 Bacteria identified Cx Nom (Unsp spec) Normal [facility] Comment on above: Order Comment: Ident ification was performed on the MALDI-TOF mass spectrometer eMinoryper. This test was developed by [facility]. It has not been cleared or approved by the FDA. The laboratory is regulated under CLIA as qualified to perform high-complexity testing. This test is used for clinical purposes. It should not be regarded as investigational or for research. Result Comment: Grow go856[place]yo [place] Histoplasma capsulatum Performed By: #### F UN ####[facility] (DEFAULT)[address] [place] [address] Bacteria identified Cx Nom (Unsp spec) NO GROWTH DAY 28 OF 28 Normal [facility] Comment on above: Order Comment: BAL f ungal culture Performed By: #### F UN ####[facility] (DEFAULT)[address] [place] [address] HEPATIC FUNCTION PANELon Albumin [Mass/Vol] 3.2 g/dL Low 3.5-5.0 [facility] Comment on above: Performed By: #### H FP, MGO, CHM7 ####[facility] (DEFAULT)[address] [place] [address] ALP [Catalytic activity/Vol] 107 U/L Normal 32-126 [facility] Comment on above: Performed By: #### H FP, MGO, CHM7 ####[facility] (DEFAULT)[address] [place] [address] ALT [Catalytic activity/Vol] 20 U/L Normal 10-52 [facility] Comment on above: Performed By: #### H FP, MGO, CHM7 ####[facility] (DEFAULT)[address] [place] [address] AST [Catalytic activity/Vol] 31 U/L Normal 10-39 [facility] Comment on above: Performed By: #### H FP, MGO, CHM7 ####[facility] (DEFAULT)[address] [place] [address] Bilirubin [Mass/Vol] 1.0 mg/dL Normal <1.5 [facility] Comment on above: Performed By: #### H FP, MGO, CHM7 ####[facility] (DEFAULT)[address] [place] [address] Bilirubin.indirect [Mass/Vol] 0.3 mg/dL High <0.3 [facility] Comment on above: Performed By: #### H FP, MGO, CHM7 ####[facility] (DEFAULT)[address] [place] [address] Protein [Mass/Vol] 6.6 g/dL Normal 6.4-8.3 [facility] Comment on above: Performed By: #### H FP, MGO, CHM7 ####[facility] (DEFAULT)[address] [place] [address] Albumin [Mass/Vol] 3.2 g/dL Low 3.5 - 5.0 g/dL [facility] ALP [Catalytic activity/Vol] 107 U/L 32 - 126 U[facility] ALT [Catalytic activity/Vol] 20 U/L 10 - 52 U/L [facility] AST [Catalytic activity/Vol] 31 U/L 10 - 39 U/L [facility] Bilirubin [Mass/Vol] 1.0 mg/dL NINF - 1.5 mg/dL [facility] Bilirubin.direct [Mass/Vol] 0.3 mg/dL High NINF - 0.3 mg/dL [facility] Protein [Mass/Vol] 6.6 g/dL 6.4 - 8.3 g/dL [facility] HISTOPLASMA ANTIGEN, FLUIDon 09-02-2023 FH SOURCE BAL RML Normal [facility] Comment on above: Performed By: #### Y FHST ####[facility] (DEFAULT)[address] [place] [address] Histo FLD interpretation Negative Normal [facility] Comment on above: Result Comment: ---- ADDITIONAL INFORMATION Reference interval: None DetectedReportable Range: Positive Results reported in ng/mL from0.20 ng/mL to 20.00 ng/mLPositive Results above 20.00 ng/mL are reported as 'Abovethe Limit of Quantification'Cross-reactions occur with Blastomyces spp., Coccidioidesspp., and Paracoccidioides brasiliensis.This test was developed and its performance characteristicsdetermined by [facility]. It has not beencleared or approved by the FDA; however, FDA clearance orapproval is not currently required for clinical use. Theresults are not intended to be used as the sole means forclinical diagnosis or patient management decisions.Test Performed by:[id number] [place] [address] Performed By: #### Y FHST ####[facility] (DEFAULT)[address] [place] [address] Histoplasma Antigen, FLUID Not detected Normal [facility] Comment on above: Performed By: #### Y FHST ####[facility] (DEFAULT)[address] [place] [address] HISTOPLASMA ANTIGEN,URINEon 09-02-2023 H. capsulatum Ag (U) [Mass/Vol] Not detected ng/mL [facility] H. capsulatum Ag IA Ql (U) Not detected Not Detected [facility] HISTOPLASMA CAPSULATUM/BLAST OMYCES SPECIES,PCR FLUIDon 09-02-2023 HISTO/BLASTO RESULT Negative Normal Not Applicable [facility] Comment on above: Result Comment: A Ne gative result from BAL fluid does not rule out thepresence of Histoplasma capsulatum because the sensitivity from this source is suboptimal. ADDITIONAL INFORMATION This test was developed and its performance characteristicsdetermined by [facility] in a manner consistent with CLIArequirements. This test has not been cleared or approved bythe U.S. Food and Drug Administration.Test Performed by:[address] [id number] Director: Rosendo Bose M.D. Ph.D.; CLIA# [id number] Performed By: #### Y HBRP ####[facility] (DEFAULT)[address] [place] [address] Source BAL RML Normal [facility] Comment on above: Performed By: #### Y HBRP ####[facility] (DEFAULT)[address] [place] [address] HIV 1 AND 2 ANTIBODIES/P24 A NTIGENOrdered By: Wilma Luque on 10-04-2023 HIV 1+2 Ab+HIV1 p24 Ag IA Ql Non-Reactive Non Reactive [facility] Interpretation and review of laboratory results Normal [facility] HIV 1 AND 2 ANTIBODIES/P24 A NTIGENon 09-02-2023 HIV-1/HIV-2 Ab With p24 Antigen Non-Reactive Normal Non Reactive [facility] Comment on above: Performed By: #### L [id number] ####[facility] (DEFAULT)[address] [place] [address] LEGIONELLA CULTUREon 023 Bacteria identified Cx Nom (Unsp spec) NO GROWTH DAY 7 OF 7 Normal [facility] Comment on above: Performed By: #### L EGN ####[facility] (DEFAULT)[address] [place] [address] Bacteria identified Cx Nom (Unsp spec) NO GROWTH DAY 7 OF 7 Normal [facility] Comment on above: Order Comment: BAL l egionella culture Performed By: #### L EGN ####[facility] (DEFAULT)[address] [place] [address] LEGIONELLA PCRon 09-02-2023 Legionella species, Culture BAL RML Normal [facility] Comment on above: Performed By: #### Y LEGRP ####[facility] (DEFAULT)[address] [place] [address] Legionella, pcr result Negative Normal Not Applicable [facility] Comment on above: Result Comment: ---- ADDITIONAL INFORMATION This test was developed and its performance characteristicsdetermined by [facility] in a manner consistent with CLIArequirements. This test has not been cleared or approved bythe U.S. Food and Drug Administration.Test Performed by:[address] [id number] Director: Rosendo Bose M.D. Ph.D.; CLIA# [id number] Performed By: #### Y LEGRP ####[facility] (DEFAULT)[address] [place] [address] LOWER RESPIRATORY CULTURE, B ACTERIALon 09-02-2023 Bacteria identified Cx Nom (Unsp spec) NO GROWTH DAY 2 OF 2 Normal [facility] Comment on above: Performed By: #### R ES ####[facility] (DEFAULT)[address] [place] [address] Microscopic observation Gram stain Nom (Unsp spec) Normal [facility] Comment on above: Result Comment: Cyto centrifuge preparationNeutrophils, RareRed Blood Cells PresentNo organisms seen Performed By: #### R ES ####[facility] (DEFAULT)[address] [place] [address] Bacteria identified Cx Nom (Unsp spec) NO GROWTH DAY 2 OF 2 Normal [facility] Comment on above: Order Comment: BAL b acterial respiratory culture Performed By: #### R ES ####[facility] (DEFAULT)[address] [place] [address] Microscopic observation Gram stain Nom (Unsp spec) Normal [facility] Comment on above: Order Comment: BAL b acterial respiratory culture Result Comment: Cyto centrifuge preparationNeutrophils, ModerateRed Blood Cells PresentNo organisms seen Performed By: #### R ES ####[facility] (DEFAULT)[address] [place] [address] MAGNESIUMon 09-02-2023 Magnesium [Mass/Vol] 1.7 mg/dL Normal 1.6-2.6 [facility] Comment on above: Performed By: #### H FP, MGO, CHM7 ####[facility] (DEFAULT)[address] [place] [address] Interpretation and review of laboratory results Normal [facility] Magnesium [Mass/Vol] 1.7 mg/dL 1.6 - 2 .6 mg/dL [facility] No Panel Informationon 09-02 Interpretation and review of laboratory results Abnormal [facility] PNEUMOCYSTIS JIROVECI,PCRon 09-02-2023 PN Report Status DNR Normal [facility] Comment on above: Performed By: #### Y PNRP ####[facility] (DEFAULT)[address] [place] [address] PN Specimen Source BAL RML Normal [facility] Comment on above: Performed By: #### Y PNRP ####[facility] (DEFAULT)[address] [place] [address], [place] [address] Pneum jiroveci comment DNR Normal [facility] Comment on above: Performed By: #### Y PNRP ####[facility] (DEFAULT)[address] [place] [address] [place] [address] Pneumocystis jiroveci,PCR result Negative Normal Not Applicable [facility] Comment on above: Result Comment: ---- ADDITIONAL INFORMATION This test was developed and its performance characteristicsdetermined by [facility] in a manner consistent with CLIArequirements. This test has not been cleared or approved bythe U.S. Food and Drug Administration.Test Performed by:[address] [address]Cer Director: Rosendo Bose M.D. Ph.D.; CLIA# [id number] Performed By: #### Y PNRP ####[facility] (DEFAULT)[address] [place] [address] PN Report Status DNR Normal [facility] Comment on above: Performed By: #### Y PNRP ####[facility] (DEFAULT)[address] [place] [address], [place] [address] PN Specimen Source BAL LLL Normal [facility] Comment on above: Performed By: #### Y PNRP ####[facility] (DEFAULT)[address] [place] [address], [place] [address] Pneum jiroveci comment DNR Normal [facility] Comment on above: Performed By: #### Y PNRP ####[facility] (DEFAULT)[address] [place] [address] Pneumocystis jiroveci,PCR result Negative Normal Not Applicable [facility] Comment on above: Result Comment: ---- ADDITIONAL INFORMATION This test was developed and its performance characteristicsdetermined by [facility] in a manner consistent with CLIArequirements. This test has not been cleared or approved bythe U.S. Food and Drug Administration.Test Performed by:[place] [id number] Director: Rosendo Bose M.D. Ph.D.; CLIA# [id number] Performed By: #### Y PNRP ####[facility] (DEFAULT)[address] [place] [address] TACROLIMUS LEVEL, TROUGH (IN E DRUG LEVEL)on 09-02-2023 Interpretation and review of laboratory results Normal [facility] Tacrolimus (Bld) [Mass/Vol] 4.2 ng/mL [facility] Tacrolimus, Trough 4.2 ng/mL Normal Bone Susana ow Transplant: 4.0-12.0, Therapeutic: 5.0-15.0 [facility] Comment on above: Order Comment: Pleas e draw at specified interval PRIOR to dose. Do not hold dose to wait for level. Specimens batched twice per day, (M-F) and once per day weekendsMethod performed is a chemiluminescent microparticle immunoasssay on the [employer] i2000.The range is based on experience at [facility] and users should be aware that target concentrations vary widely depending on concomitant therapy, time post-transplant, and desired degree of immunosuppression. Performed By: #### T ACRO ####[facility] (DEFAULT)[address] [place] [address] CBC,PLATELETSon 09-01-2023 Hematocrit (Bld) [Volume fraction] 38.9 % Low 39.6-48.8 [facility] Comment on above: Performed By: #### H EMOGC ####[facility] (DEFAULT)[address] [facility] [place] [address] Hemoglobin (Bld) [Mass/Vol] 12.7 g/dL Low 13.4-16.8 [facility] Comment on above: Performed By: #### H EMOGC ####[facility] (DEFAULT)[address] [place] [address], [place] [address] MCV (RBC) [Entitic vol] 84.6 fL Normal 79.0-94.5 [facility] Comment on above: Performed By: #### H EMOGC ####[facility] (DEFAULT)[address] [place] [address], [place] [address] Mean Cell Hgb 27.6 pg Normal 26.1-33.3 [facility] Comment on above: Performed By: #### H EMOGC ####[facility] (DEFAULT)[address] [place] [address] Mean Cell Hgb Conc 32.6 g/dL Normal 31.9-36.5 [facility] Comment on above: Performed By: #### H EMOGC ####[facility] (DEFAULT)[address] [facility] [place] [address] Platelet mean volume (Bld) [Entitic vol] 9.4 fL Normal 8.7-12.3 [facility] Comment on above: Performed By: #### H EMOGC ####[facility] (DEFAULT)[address] [place] [address] Platelets (Bld) [#/Vol] 209 10*3/uL Normal 146-337 [facility] Comment on above: Performed By: #### H EMOGC ####[facility] (DEFAULT)[address] [place] [address] RBC (Bld) [#/Vol] 4.60 10*6/uL Normal 4.38-5.83 [facility] Comment on above: Performed By: #### [place] [facility] [place] ####[facility] (DEFAULT)[address] [place] [address] RBC Distribution 13.4 % Normal 10.9-14.3 [facility] Comment on above: Performed By: #### [facility] [place] ####[facility] (DEFAULT)[address] [place] [address] WBC (Bld) [#/Vol] 4.41 10*3/uL Normal 3.73-10.10 [facility] Comment on above: Performed By: #### [facility] [place] ####[facility] (DEFAULT)[address] [place] [address] Erythrocyte distribution width (RBC) [Ratio] 13.4 % [...] [facility] RBC (Bld) [#/Vol] 4.60 10*6/uL [facility] WBC (Bld) [#/Vol] 4.41 10*3/uL 3.73 - 10. 10 K/uL [facility] CHEM 7 (LYTES,BUN,CREA,GLUC) on 09-01-2023 Anion gap [Moles/Vol] 14 mmol/L Normal 7-17 [facility] Comment on above: Performed By: #### H FP, MGO, CHM7 ####[facility] (DEFAULT)[address] [place] [address] Chloride [Moles/Vol] 103 mmol/L Normal 98-108 [facility] Comment on above: Performed By: #### H FP, MGO, CHM7 ####[facility] (DEFAULT)[address] [place] [address] CO2 [Moles/Vol] 21 mmol/L Normal 21-31 [facility] Comment on above: Performed By: #### H FP, MGO, CHM7 ####[facility] (DEFAULT)[address] [place] [address] Creatinine [Mass/Vol] 1.16 mg/dL Normal 0.70-1.30 [facility] Comment on above: Performed By: #### H FP, MGO, CHM7 ####[facility] (DEFAULT)[address] [place] [address] GFR/1.73 sq M.predicted among non-blacks MDRD (S/P/Bld) [Vol rate/Area] 76 mL/min/{1.73_m2} Normal >=60 [facility] Comment on above: Result Comment: Repo rted eGFR is based on the CKD-EPI 2020 equation using creatinine, age, and sex. Performed By: #### H FP, MGO, CHM7 ####[facility] (DEFAULT)[address] [place] [address] Glucose [Mass/Vol] 117 mg/dL High 70-99 [facility] Comment on above: Performed By: #### DOMENICA MCKINNON CHM7 ####[facility] (DEFAULT)[address] [place] [address] Osmolality [Osmolality] 285 mosm/kg Normal 278-305 [facility] Comment on above: Performed By: #### Lydia MONCADA MGO CHM7 ####[facility] (DEFAULT)[address] [place] [address] Potassium [Moles/Vol] 4.2 mmol/L Normal 3.5-5.0 [facility] Comment on above: Performed By: #### DOMENICA MCKINNON CHM7 ####[facility] (DEFAULT)[address] [place] [address] Sodium [Moles/Vol] 134 mmol/L Low 135-145 [facility] Comment on above: Performed By: #### DOMENICA MCKINNON CHMJessica ####[facility] (DEFAULT)[address] [place] [address] Urea nitrogen [Mass/Vol] 18 mg/dL Normal 7-25 [facility] Comment on above: Performed By: #### Lydia MONCADA MGRogelio CHM7 ####[facility] (DEFAULT)[address] [place] [address] Urea nitrogen/Creatinine [Mass ratio] 16 mg/mg Normal [facility] Comment on above: Performed By: #### Lydia MONCADA MGO CHM7 ####[facility] (DEFAULT)[address] [place] [address] Anion gap [Moles/Vol] 14 mmol/L 7 - 17 mmol/L [facility] Chloride [Moles/Vol] 103 mmol/L 98 - 10 8 mmol/L [facility] CO2 [Moles/Vol] 21 mmol/L 21 - 31 mmol/L [facility] Creatinine [Mass/Vol] 1.16 mg/dL 0.70 - 1.30 mg/dL [facility] eGFR, CKD-EPI, Male 76 - PINF [facility] Glucose [Mass/Vol] 117 mg/dL High 70 [...] ANTIGENon 09-01 Cryptococcus Antigen,Serum Negative Normal Negative [facility] Comment on above: Performed By: #### C RAG ####[facility] (DEFAULT)[address] [place] [address] Cryptococcus sp Ag Ql (S) Negative Negative [facility] Interpretation and review of laboratory results Normal [facility] HEPATIC FUNCTION PANELon Albumin [Mass/Vol] 3.3 g/dL Low 3.5-5.0 [facility] Comment on above: Performed By: #### H ANTWAN MGO, CHM7 ####[facility] (DEFAULT)[address] [place] [address] ALP [Catalytic activity/Vol] 112 U/L Normal 32-126 [facility] Comment on above: Performed By: #### H FP, MGO, CHM7 ####[facility] (DEFAULT)[address] [place] [address] ALT [Catalytic activity/Vol] 21 U/L Normal 10-52 [facility] Comment on above: Performed By: #### H FP, MGO, CHM7 ####[facility] (DEFAULT)[address] [place] [address] AST [Catalytic activity/Vol] 29 U/L Normal 10-39 [facility] Comment on above: Performed By: #### H DOMENICA MONCADA CHM7 ####[facility] (DEFAULT)[address] [place] [address] Bilirubin [Mass/Vol] 1.0 mg/dL Normal <1.5 [facility] Comment on above: Performed By: #### H ANTWAN MGRogelio CHM7 ####[facility] (DEFAULT)[address] [place] [address] Bilirubin.indirect [Mass/Vol] 0.2 mg/dL Normal <0.3 [facility] Comment on above: Performed By: #### H DOMENICA MONCADA CHM7 ####[facility] (DEFAULT)[address] [place] [address] Protein [Mass/Vol] 6.8 g/dL Normal 6.4-8.3 [facility] Comment on above: Performed By: #### H DOMENICA MONCADA CHM7 ####[facility] (DEFAULT)[address] [place] [address] Albumin [Mass/Vol] 3.3 g/dL Low 3.5 - [...] Interpretation and review of laboratory results Normal [facility] LEGIONELLA URINARY AGOrdered By: Carolin Miles on 09-01-2023 L. pneumophila 1 Ag IA Ql (U) Negative Negative [facility] MAGNESIUMon 09-01-2023 Magnesium [Mass/Vol] 1.6 mg/dL Normal 1.6-2.6 [facility] Comment on above: Performed By: #### H FP, MGO, CHM7 ####[facility] (DEFAULT)[address] [place] [address] Interpretation and review of laboratory results Normal [facility] Magnesium [Mass/Vol] 1.6 mg/dL 1.6 - 2 .6 mg/dL [facility] No Panel Informationon 09-01 Interpretation and review of laboratory results Abnormal [facility] PARVOVIRUS (B19) DNA, PCR, B LOODon 09-01-2023 PARVOVIRUS B19 BY RAPID PCR Not detected Normal Not Detected [facility] Comment on above: Result Comment: The primers/probe used in this assay will detectparvovirus B19 and V9 (genotypes 1 # 3) but maynot detect parvovirus genotype 2. The majority ofcirculating Parvovirus B19 strains in the [facility] are genotype 1. Genotype 2 is not believed tocirculate widely in the [facility], but has beenassociated with similar clinical features as genotype1. Genotype 3 is most prevalent in some [facility].This test was developed and its analyticalperformance characteristics have been determinedby [facility].It has not been cleared or approved by the FDA. Thisassay has been validated pursuant to the CLIAregulations and is used for clinical purposes.Test Performed at:[facility] [address] [place] [id number] Benavides M.D., Ph.D.,Director of Laboratories Performed By: #### Y PRVP ####[facility] (DEFAULT)[address] [place] [address] IN SPEC SOURCE Whole Blood Normal [facility] Comment on above: Performed By: #### Y PRVP ####[facility] (DEFAULT)[address] [place] [address] ASPERGILLUS (GALACTOMANNAN), ANTIGENon 08-31-2023 Aspergillus Antigen <0.500 Normal <0.5 [facility] Comment on above: Result Comment: ---- ADDITIONAL INFORMATION This is a qualitative test and the resulted index value isnot indicative of disease severity. Serial testing isrecommended for patients at high risk for invasiveaspergillosis.This assay was performed using the FDA-cleared [place] Aspergillus Galactomannan EIA.Test Performed by:[facility] [place] [address]Lqt Director: Rosendo Bose M.D. Ph.D.; CLIA# [id number] Performed By: #### Y ASPR ####[facility] (DEFAULT)[address] [place] [address] CBC,PLATELETSon 08-31-2023 Hematocrit (Bld) [Volume fraction] 39.4 % Low 39.6-48.8 [facility] Comment on above: Performed By: #### [place] [facility] [place] ####[facility] (DEFAULT)[address] [place] [address] Hemoglobin (Bld) [Mass/Vol] 12.8 g/dL Low 13.4-16.8 [facility] Comment on above: Performed By: #### [place] [facility] [place] ####[facility] (DEFAULT)[address] [place] [address] MCV (RBC) [Entitic vol] 85.1 fL Normal 79.0-94.5 [facility] Comment on above: Performed By: #### H EMO ####[facility] (DEFAULT)[address] [place] [address] Mean Cell Hgb 27.6 pg Normal 26.1-33.3 [facility] Comment on above: Performed By: #### H EMO ####[facility] (DEFAULT)[address] [place] [address] Mean Cell Hgb Conc 32.5 g/dL Normal 31.9-36.5 [facility] Comment on above: Performed By: #### H EMOGC ####[facility] (DEFAULT)[address] [place] [address] Platelet mean volume (Bld) [Entitic vol] 9.6 fL Normal 8.7-12.3 [facility] Comment on above: Performed By: #### H EMO ####[facility] (DEFAULT)[address] [place] [address] Platelets (Bld) [#/Vol] 228 10*3/uL Normal 146-337 [facility] Comment on above: Performed By: #### H EMO ####[facility] (DEFAULT)[address] [place] [address] RBC (Bld) [#/Vol] 4.63 10*6/uL Normal 4.38-5.83 [facility] Comment on above: Performed By: #### H EMOGC ####[facility] (DEFAULT)[address] [place] [address] RBC Distribution 13.3 % Normal 10.9-14.3 [facility] Comment on above: Performed By: #### H EMOGC ####[facility] (DEFAULT)[address] [place] [address] WBC (Bld) [#/Vol] 4.77 10*3/uL Normal 3.73-10.10 [facility] Comment on above: Performed By: #### H EMOGC ####[facility] (DEFAULT)[address] [place] [address] Erythrocyte distribution width (RBC) [Ratio] 13.3 % [...] Private Hospital RBC (Bld) [#/Vol] 4.63 10*6/uL [facility] WBC (Bld) [#/Vol] 4.77 10*3/uL 3.73 - 10. 10 K/uL [facility] CHEM 7 (LYTES,BUN,CREA,GLUC) on 08-31-2023 Anion gap [Moles/Vol] 13 mmol/L Normal 7-17 [facility] Comment on above: Performed By: #### M TAVO BLOOM, CHM7, FERIB, PROCAL ####[facility] (DEFAULT)[address] [place] [address] Chloride [Moles/Vol] 102 mmol/L Normal 98-108 [facility] Comment on above: Performed By: #### M TAVO BLOOM, CHM7, FERIB, PROCAL ####[facility] (DEFAULT)[address] [place] [address] CO2 [Moles/Vol] 23 mmol/L Normal 21-31 [facility] Comment on above: Performed By: #### M GO, HFP, CHM7, FERIB, PROCAL ####[facility] (DEFAULT)[address] [place] [address] Creatinine [Mass/Vol] 1.37 mg/dL High 0.70-1.30 [facility] Comment on above: Performed By: #### M GO, HFP, CHM7, FERIB, PROCAL ####[facility] (DEFAULT)[address] [place] [address] GFR/1.73 sq M.predicted among non-blacks MDRD (S/P/Bld) [Vol rate/Area] 62 mL/min/{1.73_m2} Normal >=60 [facility] Comment on above: Result Comment: Repo rted eGFR is based on the CKD-EPI 2020 equation using creatinine, age, and sex. Performed By: #### M GO, HFP, CHM7, FERIB, PROCAL ####[facility] (DEFAULT)[address] [place] [address] Glucose [Mass/Vol] 112 mg/dL High 70-99 [facility] Comment on above: Performed By: #### M GO, HFP, CHM7, FERIB, PROCAL ####[facility] (DEFAULT)[address] [place] [address] Osmolality [Osmolality] 284 mosm/kg Normal 278-305 [facility] Comment on above: Performed By: #### M GO, HFP, CHM7, FERIB, PROCAL ####[facility] (DEFAULT)[address] [place] [address] Potassium [Moles/Vol] 4.4 mmol/L Normal 3.5-5.0 [facility] Comment on above: Performed By: #### M GO, HFP, CHM7, FERIB, PROCAL ####[facility] (DEFAULT)[address] [facility] [place] [address] Sodium [Moles/Vol] 134 mmol/L Low 135-145 [facility] Comment on above: Performed By: #### M GO, HFP, CHM7, FERIB, PROCAL ####[facility] (DEFAULT)[address] [place] [address] Urea nitrogen [Mass/Vol] 16 mg/dL Normal 7-25 [facility] Comment on above: Performed By: #### M MERLE, HFP, CHM7, FERIB, PROCAL ####U [facility] (DEFAULT)[address] [facility] [place] [address] Urea nitrogen/Creatinine [Mass ratio] 12 mg/mg Normal [facility] Comment on above: Performed By: #### M GO, HFP, CHM7, FERIB, PROCAL ####[facility] (DEFAULT)[address] [facility] [place] [address] Anion gap [Moles/Vol] 13 mmol/L 7 - 17 mmol/L [facility] Chloride [Moles/Vol] 102 mmol/L 98 - 10 8 [facility]L [facility] CO2 [Moles/Vol] 23 mmol/L 21 - 31 mmol/L [facility] Creatinine [Mass/Vol] 1.37 mg/dL High 0.70 - 1.30 mg/dL [facility] eGFR, CKD-EPI, Male 62 - PINF [facility] Glucose [Mass/Vol] 112 mg/dL High 70 - 99 mg/dL [facility] Osmolality Calc [Osmolality] 284 [facility] Potassium [Moles/Vol] 4.4 mmol/L 3.5 - 5.0 mmol/L [facility] Sodium [Moles/Vol] 134 mmol/L Low 135 - 145 mmol/L [facility] Urea nitrogen [Mass/Vol] 16 mg/dL 7 - 25 mg/dL [facility] Urea nitrogen/Creatinine [Mass ratio] 12 mg/mg [facility] CT ABDOMEN/PELVIS WITHOUT CO NTRASTon 08-31-2023 CT ABDOMEN/PELVIS WITHOUT CONTRAST Normal [facility] CT Abdomen and Pelvis WO con traston 08-31-2023 RADIOLOGY RADIOLOGY [facility] Radiology Study observation (narrative) [facility] CT Abdomen and Pelvis WO con trastOrdered By: Chavez Larkin on 08-31-2023 [facility] Work Phone: CT CHEST WITHOUT CONTRASTon 08-31-2023 CT CHEST WITHOUT CONTRAST Normal [facility] CT Chest WO contraston 08-31 RADIOLOGY RADIOLOGY [facility] Radiology Study observation (narrative) [facility] CT Chest WO contrastOrdered By: Daisha Patterson on 08-31-2023 [facility] Work Phone: FERRITINon 08-31-2023 Ferritin [Mass/Vol] 409.0 ng/mL High 10.5 - 3 07.3 ng/mL [facility] Interpretation and review of laboratory results Abnormal [facility] Ferritin [Mass/Vol] 409.0 ng/mL High 10.5-307.3 [facility] Comment on above: Performed By: #### M GO, HFP, CHM7, FERIB, PROCAL ####[facility] (DEFAULT)[address] [place] [address] HEPATIC FUNCTION PANELon Albumin [Mass/Vol] 3.3 g/dL Low 3.5-5.0 [facility] Comment on above: Performed By: #### M GO, HFP, CHM7, FERIB, PROCAL ####[facility] (DEFAULT)[address] [place] [address] ALP [Catalytic activity/Vol] 113 U/L Normal 32-126 [facility] Comment on above: Performed By: #### M GO, HFP, CHM7, FERIB, PROCAL ####[facility] (DEFAULT)[address] [place] [address] ALT [Catalytic activity/Vol] 25 U/L Normal 10-52 [facility] Comment on above: Performed By: #### M GO, HFP, CHM7, FERIB, PROCAL ####[facility] (DEFAULT)[address] [place] [address] AST [Catalytic activity/Vol] 31 U/L Normal 10-39 [facility] Comment on above: Performed By: #### M GO, HFP, CHM7, FERIB, PROCAL ####[facility] (DEFAULT)[address] [place] [address] Bilirubin [Mass/Vol] 1.1 mg/dL Normal <1.5 [facility] Comment on above: Performed By: #### M GO, HFP, CHM7, FERIB, PROCAL ####[facility] (DEFAULT)[address] [place] [address] Bilirubin.indirect [Mass/Vol] 0.3 mg/dL High <0.3 [facility] Comment on above: Performed By: #### M GO, HFP, CHM7, FERIB, PROCAL ####[facility] (DEFAULT)[address] [place] [address] Protein [Mass/Vol] 7.0 g/dL Normal 6.4-8.3 [facility] Comment on above: Performed By: #### M GO, HFP, CHM7, FERIB, PROCAL ####[facility] (DEFAULT)[address] [place] [address] Albumin [Mass/Vol] 3.3 g/dL Low 3.5 - [...] g/dL [facility] LEGIONELLA URINARY AGon 10-0 Legionella Urinary Antigen Negative Normal Negative [facility] Comment on above: Performed By: #### L EGION ####[facility] (DEFAULT)[address] [place] [address] MAGNESIUMon 08-31-2023 Magnesium [Mass/Vol] 1.7 mg/dL Normal 1.6-2.6 [facility] Comment on above: Performed By: #### M GO, HFP, CHM7, FERIB, PROCAL ####[facility] (DEFAULT)[address] [place] [address] Interpretation and review of laboratory results Normal [facility] Magnesium [Mass/Vol] 1.7 mg/dL 1.6 - 2 .6 mg/dL [facility] No Panel Informationon 08-31 Interpretation and review of laboratory results Abnormal [facility] PROCALCITONINon 08-31-2023 Interpretation and review of laboratory results Normal [facility] Procalcitonin [Mass/Vol] 0.23 ng/mL NINF - 0.50 ng/mL [facility] Procalcitonin 0.23 ng/mL Normal <0.50 [facility] Comment on above: Result Comment: Proc [...] and trend procalcitonin in various clinical settings. [email or web address] [email or web address]&action=[email or web address] common cutoffs associated with bacterial infections are as follows.Respiratory tract infections: >0.25 ng/mLSepsis/septic shock: >0.5 ng/mLProcalcitonin should not be used alone as a diagnostic tool, however. All procalcitonin results should be interpreted in association with the patients clinical condition and all laboratory findings. Performed By: #### M GO, HFP, CHM7, FERIB, PROCAL ####[facility] (DEFAULT)[address] [place] [address] TACROLIMUS LEVEL, TROUGH (IN E DRUG LEVEL)Ordered By: Yanira Marcum on 08-31-2023 Interpretation and review of laboratory results Normal [facility] Tacrolimus (Bld) [Mass/Vol] 5.9 ng/mL [facility] TACROLIM[facility] LEVEL, TROUGH (IN E DRUG LEVEL)on 08-31-2023 Tacrolimus, Trough 5.9 ng/mL Normal Bone Susana ow Transplant: 4.0-12.0, Therapeutic: 5.0-15.0 [facility] Comment on above: Order Comment: Pleas e draw at specified interval PRIOR to dose. Do not hold dose to wait for level. Specimens batched twice per day, (M-F) and once per day weekendsMethod performed is a chemiluminescent microparticle immunoasssay on the [employer] i2000.The range is based on experience at [facility] and users should be aware that target concentrations vary widely depending on concomitant therapy, time post-transplant, and desired degree of immunosuppression. Performed By: #### T ACRO ####[facility] (DEFAULT)[address] [place] [address] URINE CULTUREOrdered By: Jorge crowe Held on 08-31-2023 Bacteria identified Cx Nom (Unsp spec) No Growth [facility] DARYL AURIS SCREEN BY PCRO rdered By: Mynor Alejandro on 08-30-2023 Daryl auris Screen by PCR Not detected Not Detected [facility] Interpretation and review of laboratory results Normal [facility] CBC,PLATELETSon 08-30-2023 Hematocrit (Bld) [Volume fraction] 41.3 % Normal 39.6-48.8 [facility] Comment on above: Performed By: #### H EMOGC ####[facility] (DEFAULT)[address] [facility] [place] [address] Hemoglobin (Bld) [Mass/Vol] 13.2 g/dL Low 13.4-16.8 [facility] Comment on above: Performed By: #### H EMOGC ####[facility] (DEFAULT)[address] [facility] [place] [address] MCV (RBC) [Entitic vol] 85.5 fL Normal 79.0-94.5 [facility] Comment on above: Performed By: #### H EMOGC ####[facility] (DEFAULT)[address] [facility] [place] [address] Mean Cell Hgb 27.3 pg Normal 26.1-33.3 [facility] Comment on above: Performed By: #### H EMOGC ####[facility] (DEFAULT)[address] [place] [address] Mean Cell Hgb Conc 32.0 g/dL Normal 31.9-36.5 [facility] Comment on above: Performed By: #### H EMOGC ####[facility] (DEFAULT)[address] [facility] [place] [address] Platelet mean volume (Bld) [Entitic vol] 9.2 fL Normal 8.7-12.3 [facility] Comment on above: Performed By: #### H EMOGC ####[facility] [facility] ([facility] [place] [address] Platelets (Bld) [#/Vol] 235 10*3/uL Normal 146-337 [facility] Comment on above: Performed By: #### [place] [facility] [place] ####[facility] (DEFAULT)[address] [place] [address] RBC (Bld) [#/Vol] 4.83 10*6/uL Normal 4.38-5.83 [facility] Comment on above: Performed By: #### H EMO ####[facility] (DEFAULT)[address] [place] [address] RBC Distribution 13.3 % Normal 10.9-14.3 [facility] Comment on above: Performed By: #### [place] [facility] [place] ####[facility] (DEFAULT)[address] [place] [address] WBC (Bld) [#/Vol] 4.96 10*3/uL Normal 3.73-10.10 [facility] Comment on above: Performed By: #### [place] [facility] [place] ####[facility] (DEFAULT)[address] [place] [address] Erythrocyte distribution width (RBC) [Ratio] 13.3 % [...] [facility] RBC (Bld) [#/Vol] 4.83 10*6/uL [facility] WBC (Bld) [#/Vol] 4.96 10*3/uL 3.73 - 10. 10 K/uL [facility] CHEM 7 (LYTES,BUN,CREA,GLUC) on 08-30-2023 Anion gap [Moles/Vol] 14 mmol/L Normal 7-17 [facility] Comment on above: Performed By: #### M MERLE CHM7, HFP ####[facility] (DEFAULT)[address] [facility] [place] [address] Chloride [Moles/Vol] 102 mmol/L Normal 98-108 [facility] Comment on above: Performed By: #### Rod BLOOM CHM7, HFP ####[facility] (DEFAULT)[address] [facility] [place] [address] CO2 [Moles/Vol] 20 mmol/L Low 21-31 [facility] Comment on above: Performed By: #### Rod BLOOM CHM7, HFP ####[facility] (DEFAULT)[address] [place] [address] Creatinine [Mass/Vol] 1.56 mg/dL High 0.70-1.30 [facility] Comment on above: Performed By: #### Rod BLOOM CHM7, HFP ####[facility] (DEFAULT)[address] [place] [address] GFR/1.73 sq M.predicted among non-blacks MDRD (S/P/Bld) [Vol rate/Area] 53 mL/min/{1.73_m2} Low >=60 [facility] Comment on above: Result Comment: Repo rted eGFR is based on the CKD-EPI 2020 equation using creatinine, age, and sex. Performed By: #### Rod BLOOM CHM7, HFP ####[facility] (DEFAULT)[address] [facility] [place] [address] Glucose [Mass/Vol] 123 mg/dL High 70-99 [facility] Comment on above: Performed By: #### NATHANIEL RAMÍREZ, HFP ####[facility] (DEFAULT)[address] [place] [address] Osmolality [Osmolality] 281 mosm/kg Normal 278-305 [facility] Comment on above: Performed By: #### NATHANIEL RAMÍREZ, HFP ####[facility] (DEFAULT)[address] [place] [address] Potassium [Moles/Vol] 4.3 mmol/L Normal 3.5-5.0 [facility] Comment on above: Performed By: #### NATHANIEL RAMÍREZ, HFP ####[facility] (DEFAULT)[address] [place] [address] Sodium [Moles/Vol] 132 mmol/L Low 135-145 [facility] Comment on above: Performed By: #### NATHANIEL RAMÍREZ, HFP ####[facility] (DEFAULT)[address] [place] [address] Urea nitrogen [Mass/Vol] 16 mg/dL Normal 7-25 [facility] Comment on above: Performed By: #### NATHANIEL RAMÍREZ, HFP ####[facility] (DEFAULT)[address] [place] [address] Urea nitrogen/Creatinine [Mass ratio] 10 mg/mg Normal [facility] Comment on above: Performed By: #### NATHANIEL RAMÍREZ, HFP ####[facility] (DEFAULT)[address] [place] [address] Anion gap [Moles/Vol] 14 mmol/L 7 - 17 mmol/L [facility] Chloride [Moles/Vol] 102 mmol/L 98 - 10 8 mmol/L [facility] CO2 [Moles/Vol] 20 mmol/L Low 21 - 31 mmol/L [facility] Creatinine [Mass/Vol] 1.56 mg/dL High 0.70 - 1.30 mg/dL [facility] eGFR, CKD-EPI, Male 54 Low - PINF [facility] Glucose [Mass/Vol] 123 mg/dL High 70 [...] PANELon Albumin [Mass/Vol] 3.7 g/dL Normal 3.5-5.0 [facility] Comment on above: Performed By: #### M HELEN BLOOMM7, HFP ####[facility] (DEFAULT)[address] [place] [address] ALP [Catalytic activity/Vol] 115 U/L Normal 32-126 [facility] Comment on above: Performed By: #### Rod BLOOM CHM7, HFP ####[facility] (DEFAULT)[address] [facility] [place] [address] ALT [Catalytic activity/Vol] 22 U/L Normal 10-52 [facility] Comment on above: Performed By: #### Rod BLOOM CHM7, HFP ####[facility] (DEFAULT)[address] [place] [address] AST [Catalytic activity/Vol] 34 U/L Normal 10-39 [facility] Comment on above: Performed By: #### Rod BLOOM CHM7, HFP ####[facility] (DEFAULT)[address] [facility] [place] [address] Bilirubin [Mass/Vol] 1.2 mg/dL Normal <1.5 [facility] Comment on above: Performed By: #### M NATHANIEL BLOOM, HFP ####[facility] (DEFAULT)[address] [place] [address] Bilirubin.indirect [Mass/Vol] 0.3 mg/dL High <0.3 [facility] Comment on above: Performed By: #### M NATHANIEL BLOOM, HFP ####[facility] (DEFAULT)[address] [place] [address] Protein [Mass/Vol] 7.7 g/dL Normal 6.4-8.3 [facility] Comment on above: Performed By: #### NATHANIEL RAMÍREZ, HFP ####[facility] (DEFAULT)[address] [place] [address] Albumin [Mass/Vol] 3.7 g/dL 3.5 - 5.0 [...] 08-30-2023 Magnesium [Mass/Vol] 1.8 mg/dL Normal 1.6-2.6 [facility] Comment on above: Performed By: #### NATHANIEL RAMÍREZ, HFP ####[facility] (DEFAULT)[address] [place] [address] Interpretation and review of laboratory results Normal [facility] Magnesium [Mass/Vol] 1.8 mg/dL 1.6 - 2 .6 mg/dL [facility] No Panel Informationon 08-30 Interpretation and review of laboratory results Abnormal [facility] CBC,PLATELETSon 08-29-2023 Hematocrit (Bld) [Volume fraction] 37.6 % Low 39.6-48.8 [facility] Comment on above: Performed By: #### H EMOGC ####[facility] (DEFAULT)[address] [place] [address] Hemoglobin (Bld) [Mass/Vol] 12.2 g/dL Low 13.4-16.8 [facility] Comment on above: Performed By: #### H EMOGC ####[facility] (DEFAULT)[address] [place] [address] MCV (RBC) [Entitic vol] 85.1 fL Normal 79.0-94.5 [facility] Comment on above: Performed By: #### H EMOGC ####[facility] (DEFAULT)[address] [place] [address] Mean Cell Hgb 27.6 pg Normal 26.1-33.3 [facility] Comment on above: Performed By: #### H EMOGC ####[facility] (DEFAULT)[address] [place] [address] Mean Cell Hgb Conc 32.4 g/dL Normal 31.9-36.5 [facility] Comment on above: Performed By: #### H EMOGC ####[facility] (DEFAULT)[address] [place] [address] Platelet mean volume (Bld) [Entitic vol] 9.4 fL Normal 8.7-12.3 [facility] Comment on above: Performed By: #### H EMOGC ####[facility] (DEFAULT)[address] [place] [address] Platelets (Bld) [#/Vol] 233 10*3/uL Normal 146-337 [facility] Comment on above: Performed By: #### H EMO ####[facility] (DEFAULT)[address] [place] [address] RBC (Bld) [#/Vol] 4.42 10*6/uL Normal 4.38-5.83 [facility] Comment on above: Performed By: #### H EMO ####[facility] (DEFAULT)[address] [place] [address] RBC Distribution 13.4 % Normal 10.9-14.3 [facility] Comment on above: Performed By: #### H EMO ####[facility] (DEFAULT)[address] [place] [address] WBC (Bld) [#/Vol] 4.92 10*3/uL Normal 3.73-10.10 [facility] Comment on above: Performed By: #### [place] [facility] [place] ####[facility] (DEFAULT)[address] [place] [address] Erythrocyte distribution width (RBC) [Ratio] 13.4 % [...] [facility] RBC (Bld) [#/Vol] 4.42 10*6/uL [facility] WBC (Bld) [#/Vol] 4.92 10*3/uL 3.73 - 10. 10 K/uL [facility] CHEM 7 (LYTES,BUN,CREA,GLUC) on 08-29-2023 Anion gap [Moles/Vol] 13 mmol/L Normal 7-17 [facility] Comment on above: Performed By: #### M GO, CHM7, GGTB, HFP ####[facility] (DEFAULT)[address] [place] [address] Chloride [Moles/Vol] 105 mmol/L Normal 98-108 [facility] Comment on above: Performed By: #### M GO, CHM7, GGTB, HFP ####[facility] (DEFAULT)[address] [place] [address] CO2 [Moles/Vol] 20 mmol/L Low 21-31 [facility] Comment on above: Performed By: #### M GO, CHM7, GGTB, HFP ####[facility] (DEFAULT)[address] [place] [address] Creatinine [Mass/Vol] 1.55 mg/dL High 0.70-1.30 [facility] Comment on above: Performed By: #### M GO, CHM7, GGTB, HFP ####[facility] (DEFAULT)[address] [place] [address] GFR/1.73 sq M.predicted among non-blacks MDRD (S/P/Bld) [Vol rate/Area] 54 mL/min/{1.73_m2} Low >=60 [facility] Comment on above: Result Comment: Repo rted eGFR is based on the CKD-EPI 2020 equation using creatinine, age, and sex. Performed By: #### M GO, CHM7, GGTB, HFP ####[facility] (DEFAULT)[address] [place] [address] Glucose [Mass/Vol] 108 mg/dL High 70-99 [facility] Comment on above: Performed By: #### M GO, CHM7, GGTB, HFP ####[facility] (DEFAULT)[address] [place] [address] Osmolality [Osmolality] 283 mosm/kg Normal 278-305 [facility] Comment on above: Performed By: #### M GO, CHM7, GGTB, HFP ####[facility] (DEFAULT)[address] [place] [address] Potassium [Moles/Vol] 4.5 mmol/L Normal 3.5-5.0 [facility] Comment on above: Performed By: #### M GO, CHM7, GGTB, HFP ####[facility] (DEFAULT)[address] [place] [address] Sodium [Moles/Vol] 133 mmol/L Low 135-145 [facility] Comment on above: Performed By: #### M GO, CHM7, GGTB, HFP ####[facility] (DEFAULT)[address] [place] [address] Urea nitrogen [Mass/Vol] 19 mg/dL Normal 7-25 [facility] Comment on above: Performed By: #### M GO, CHM7, GGTB, HFP ####[facility] (DEFAULT)[address] [place] [address] Urea nitrogen/Creatinine [Mass ratio] 12 mg/mg Normal [facility] Comment on above: Performed By: #### M GO, CHM7, GGTB, HFP ####[facility] (DEFAULT)[address] [place] [address] Anion gap [Moles/Vol] 13 mmol/L 7 - 17 mmol/L [facility] Chloride [Moles/Vol] 105 mmol/L 98 - 10 8 mmol/L [facility] CO2 [Moles/Vol] 20 mmol/L Low 21 - 31 mmol/L [facility] Creatinine [Mass/Vol] 1.55 mg/dL High 0.70 - 1.30 mg/dL [facility] eGFR, CKD-EPI, Male 55 Low - PINF [facility] Glucose [Mass/Vol] 108 mg/dL High 70 [...] Interpretation and review of laboratory results Normal [facility] Gamma glutamyl transferase [Catalytic activity/Vol] 64 U/L Normal 8-64 [facility] Comment on above: Performed By: #### M GO, CHM7, GGTB, HFP ####[facility] (DEFAULT)[address] [place] [address] HEPATIC FUNCTION PANELon Albumin [Mass/Vol] 3.3 g/dL Low 3.5-5.0 [facility] Comment on above: Performed By: #### M GO, CHM7, GGTB, HFP ####[facility] (DEFAULT)[address] [place] [address] ALP [Catalytic activity/Vol] 103 U/L Normal 32-126 [facility] Comment on above: Performed By: #### M GO, CHM7, GGTB, HFP ####[facility] (DEFAULT)[address] [place] [address] ALT [Catalytic activity/Vol] 18 U/L Normal 10-52 [facility] Comment on above: Performed By: #### M GO, CHM7, GGTB, HFP ####[facility] (DEFAULT)[address] [place] [address] AST [Catalytic activity/Vol] 27 U/L Normal 10-39 [facility] Comment on above: Performed By: #### M GO, CHM7, GGTB, HFP ####[facility] (DEFAULT)[address] [place] [address] Bilirubin [Mass/Vol] 1.1 mg/dL Normal <1.5 [facility] Comment on above: Performed By: #### M GO, CHM7, GGTB, HFP ####[facility] (DEFAULT)[address] [place] [address] Bilirubin.indirect [Mass/Vol] 0.3 mg/dL High <0.3 [facility] Comment on above: Performed By: #### M GO, CHM7, GGTB, HFP ####[facility] (DEFAULT)[address] [place] [address] Protein [Mass/Vol] 6.8 g/dL Normal 6.4-8.3 [facility] Comment on above: Performed By: #### M GO, CHM7, GGTB, HFP ####[facility] (DEFAULT)[address] [place] [address] Albumin [Mass/Vol] 3.3 g/dL Low 3.5 - [...] Result Detected Invalid Interpretation Code Not Detected [facility] Comment on above: Result Comment: Anti gen from Histoplasma or Blastomyces (unable todifferentiate) detected. Result should be correlated withclinical presentation, exposure history, and otherdiagnostic procedures, including culture, serology,histopathology, and/or radiographic findings, to aid in thedifferentiation between histoplasmosis and blastomycosis.CRITICAL RESULT Performed By: #### H IBAG ####[facility] (DEFAULT)[address] [place] [address] Histoplasma/Blastomy antonia Ag Value 5.3 ng/mL Normal [facility] Comment on above: Result Comment: ---- ADDITIONAL INFORMATION This test was developed and its performance characteristicsdetermined by [facility] in a manner consistent with CLIArequirements. This test has not been cleared or approved bythe U.S. Food and Drug Administration.Test Performed by:[address] [address]Cvd Director: Rosendo Bose M.D. Ph.D.; CLIA# [id number] Performed By: #### H IBAG ####[facility] (DEFAULT)[address] [place] [address] HISTOPLASMA ANTIGEN,URINEon 08-29-2023 HISTOPLASM AG, URINE Not detected Normal Not Detected [facility] Comment on above: Result Comment: No H istoplasma antigen detected.False negative results may occur. Repeat testing on anew specimen should be considered if clinically indicated. Performed By: #### Y HISTG ####[facility] (DEFAULT)[address] [place] [address] Histoplasma Ag Value Not detected Normal [facility] Comment on above: Result Comment: ---- ADDITIONAL INFORMATION This test has been modified from the chief psychology'sinstructions. Its performance characteristics weredetermined by [facility] in a manner consistent withCLIA requirements. This test has not been cleared orapproved by the U.S. Food and Drug Administration.Test Performed by:[place] [id number] Director: Rosendo Bose M.D. Ph.D.; CLIA# [id number] Performed By: #### Y HISTG ####[facility] (DEFAULT)[address] [place] [address] MAGNESIUMon 08-29-2023 Magnesium [Mass/Vol] 1.7 mg/dL Normal 1.6-2.6 [facility] Comment on above: Performed By: #### M GO, CHM7, GGTB, HFP ####[facility] (DEFAULT)[address] [place] [address] Interpretation and review of laboratory results Normal [facility] Magnesium [Mass/Vol] 1.7 mg/dL 1.6 - 2 .6 mg/dL [facility] No Panel Informationon 08-29 Interpretation and review of laboratory results Abnormal [facility] PT,INR,PTTon 08-29-2023 aPTT Coag (Bld) [Time] 29.3 s Normal 24.0-34.3 [facility] Comment on above: Performed By: #### P TPTT ####[facility] (DEFAULT)[address] [place] [address] INR Coag (PPP) [Relative time] 1.1 {INR} Normal 0.9-1.1 [facility] Comment on above: Performed By: #### P TPTT ####[facility] (DEFAULT)[address] [place] [address] PT Coag (PPP) [Time] 13.8 s Normal 11.9-14.2 [facility] Comment on above: Performed By: #### P TPTT ####[facility] (DEFAULT)[address] [place] [address] aPTT Coag (PPP) [Time] 29.3 s [facility] INR Coag (Bld) [Relative time] 1.1 {INR} 0.9 - 1.1 [facility] Interpretation and review of laboratory results Normal [facility] PT Coag (PPP) [Time] 13.8 s [facility] Portable XR Chest Viewson RADIOLOGY RADIOLOGY [facility] Portable XR Chest ViewsOrder ed By: Gerald Baer on 08-29-2023 [facility] Work Phone: TACROLIMUS LEVEL, TROUGH (IN E DRUG LEVEL)on 08-29-2023 Interpretation and review of laboratory results Normal [facility] Tacrolimus (Bld) [Mass/Vol] 8.9 ng/mL [facility] Tacrolimus, Trough 8.9 ng/mL Normal [facility] Transplant: 4.0-12.0, Therapeutic: 5.0-15.0 [facility] Comment on above: Order Comment: Pleas e draw at specified interval PRIOR to dose. Do not hold dose to wait for level. Specimens batched twice per day, (M-F) and once per day weekendsMethod performed is a chemiluminescent microparticle immunoasssay on the Sp[employer] i2000.The range is based on experience at [facility] and users should be aware that target concentrations vary widely depending on concomitant therapy, time post-transplant, and desired degree of immunosuppression. Performed By: #### T ACRO ####[facility] (DEFAULT)[address] [place] [address] Tacrolimus, Trough 8.7 ng/mL Normal [facility] Transplant: 4.0-12.0, Therapeutic: 5.0-15.0 [facility] Comment on above: Order Comment: Pleas e draw at specified interval PRIOR to dose. Do not hold dose to wait for level. Specimens batched twice per day, (M-F) and once per day weekendsMethod performed is a chemiluminescent microparticle immunoasssay on the Sp[employer] 2 [employer] Catcher i2000.The range is based on experience at [facility] and users should be aware that target concentrations vary widely depending on concomitant therapy, time post-transplant, and desired degree of immunosuppression. Performed By: #### T ACRO ####[facility] (DEFAULT)[address] [place] [address] TACROLIMUS LEVEL, TROUGH (IN E DRUG LEVEL)Ordered By: Roxanne Louie on 08-29-2023 Interpretation and review of laboratory results Normal [facility] Tacrolimus (Bld) [Mass/Vol] 8.7 ng/mL [facility] URINALYSIS REFLEX TO CULTURE PERFORMABLEon 08-29-2023 Appearance (U) Clear Normal Clear [facility] Comment on above: Order Comment: For i ndwelling catheters, specimen collection is acceptable on catheter day 1 and 2 only. ? Performed By: #### U [id number] ####[facility] (DEFAULT)[address] [place] [address], [place] [address] Bacteria ABSENT Normal ABSENT [facility] Comment on above: Order Comment: For i ndwelling catheters, specimen collection is acceptable on catheter day 1 and 2 only. ? Performed By: #### U [id number] ####[facility] (DEFAULT)[address] [place] [address] Blood Urine Trace Abnormal Negative [facility] Comment on above: Order Comment: For i ndwelling catheters, specimen collection is acceptable on catheter day 1 and 2 only. ? Performed By: #### U [id number] ####[facility] (DEFAULT)[address] [place] [address] Calcium Oxalate Crystals PRESENT Normal [facility] Comment on above: Order Comment: For i ndwelling catheters, specimen collection is acceptable on catheter day 1 and 2 only. ? Performed By: #### U [id number] ####[facility] (DEFAULT)[address] [place] [address] Color (U) Yellow Normal Yellow [facility] Comment on above: Order Comment: For i ndwelling catheters, specimen collection is acceptable on catheter day 1 and 2 only. ? Performed By: #### U [id number] ####[facility] (DEFAULT)[address] [facility] [place] [address] Glucose Ql (U) Negative Normal Negative [facility] Comment on above: Order Comment: For i ndwelling catheters, specimen collection is acceptable on catheter day 1 and 2 only. ? Performed By: #### U [id number] ####[facility] (DEFAULT)[address] [place] [address] Ketones Ql (U) Negative Normal Negative [facility] Comment on above: Order Comment: For i ndwelling catheters, specimen collection is acceptable on catheter day 1 and 2 only. ? Performed By: #### U [id number] ####[facility] (DEFAULT)[address] [facility] [place] [address] Leukocyte esterase Test strip Ql (U) Negative Normal Negative [facility] Comment on above: Order Comment: For i ndwelling catheters, specimen collection is acceptable on catheter day 1 and 2 only. ? Performed By: #### U [id number] ####[facility] (DEFAULT)[address] [place] [address] Nitrites Urine Negative Normal Negative [facility] Comment on above: Order Comment: For i ndwelling catheters, specimen collection is acceptable on catheter day 1 and 2 only. ? Performed By: #### U [id number] ####[facility] (DEFAULT)[address] [facility] [place] [address] pH (U) 6.0 [pH] Normal 5.0-7.0 [facility] Comment on above: Order Comment: For i ndwelling catheters, specimen collection is acceptable on catheter day 1 and 2 only. ? Performed By: #### U [id number] ####[facility] (DEFAULT)[address] [place] [address] Protein Urine Negative Normal Negative [facility] Comment on above: Order Comment: For i ndwelling catheters, specimen collection is acceptable on catheter day 1 and 2 only. ? Performed By: #### U [id number] ####[facility] (DEFAULT)[address] [place] [address] RBC Urine 3-5 Abnormal 0-2 [facility] Comment on above: Order Comment: For i ndwelling catheters, specimen collection is acceptable on catheter day 1 and 2 only. ? Performed By: #### U [id number] ####[facility] (DEFAULT)[address] [facility] [place] [address] Specific [place] Urine 1.015 Normal 1.001-1.035 [facility] Comment on above: Order Comment: For i ndwelling catheters, specimen collection is acceptable on catheter day 1 and 2 only. ? Performed By: #### U [id number] ####[facility] (DEFAULT)[address] [place] [address] Squamous/Epithelial Cells 0-2/hpf Normal 0-2/hpf, 3-5/hpf = 1+ [facility] Comment on above: Order Comment: For i ndwelling catheters, specimen collection is acceptable on catheter day 1 and 2 only. ? Performed By: #### U [id number] ####[facility] (DEFAULT)[address] [place] [address] Urobilinogen Urine 1.0 E.U./dL Normal 0.2 E.U/d L, 1.0 E.U/dL [facility] Comment on above: Order Comment: For i ndwelling catheters, specimen collection is acceptable on catheter day 1 and 2 only. ? Performed By: #### U [id number] ####[facility] (DEFAULT)[address] [place] [address] WBC Urine 0 - 5 Normal 0 - 5 [facility] Comment on above: Order Comment: For i ndwelling catheters, specimen collection is acceptable on catheter day 1 and 2 only. ? Performed By: #### U [id number] ####[facility] (DEFAULT)[address] [place] [address] URINALYSIS REFLEX TO CULTURE PERFORMABLEOrdered By: Shaji Kelly on 08-29-2023 Appearance (U) Clear Clear [facility] Bacteria LM Ql (Urine sed) ABSENT ABSENT [facility] Calcium Oxalate Crystals PRESENT [facility] Color (U) Yellow [facility] RBC (U) [#/Vol] Trace Abnormal Negative [facility] RBC LM.HPF (Urine sed) [#/Area] 3-5 Abnormal [facility] Specific gravity (U) [Rel density] 1.015 1.001 - 1.035 [facility] Urobilinogen (U) [Mass/Vol] 1.0 E.U./dL 0.2 E.U/dL, 1.0 E.U/dL [facility] WBC LM.HPF (Urine sed) [#/Area] 0 - 5 [facility] URINE CULTUREon 08-29-2023 Bacteria identified Cx Nom (U) No Growth Normal [facility] Comment on above: Order Comment: For i ndwelling catheters, specimen collection is acceptable on catheter day 1 and 2 only. Sung top vacutainer. Urine must be to the fill line to process (4mls). If minimum volume, send urine in a yellow top vacutainer tube. Performed By: #### U R ####[facility] (DEFAULT)[address] [place] [address] US RENAL TRANSPLANT SCANon 0 08-29-2023 US RENAL TRANSPLANT SCAN Normal [facility] US for transplanted kidney l imitedon 08-29-2023 RADIOLOGY RADIOLOGY [facility] Radiology Study observation (narrative) [facility] US for transplanted kidney l imitedOrdered By: Romana Matias on 08-29-2023 [facility] Work Phone: XR CHEST PORTABLEon 08-29-20 23 XR CHEST PORTABLE Normal [facility] BLOOD CULTUREon 08-28-2023 Bacteria identified Cx Nom (Unsp spec) NO GROWTH DAY 5 OF 5 Normal [facility] Comment on above: Order Comment: 2 Bot tles (1 Set - consists of 1 Aerobic bottle and 1 Anaerobic bottle) -1st Peripheral DrawFor syringe method draw:If able to obtain adequate sample (20 ml) inoculate anaerobic bottle firstIf inadequate sample obtained (less than 20 ml) inoculate aerobic bottle firstFor vacutainer method draw: Fill aerobic bottle first, then anaerobic Performed By: #### B LDCULT ####[facility] (DEFAULT)[address] [place] [address] Bacteria identified Cx Nom (Unsp spec) NO GROWTH DAY 5 OF 5 Normal [facility] Comment on above: Order Comment: 2 Bot tles (1 Set - consists of 1 Aerobic bottle and 1 Anaerobic bottle) -1st Peripheral DrawFor syringe method draw:If able to obtain adequate sample (20 ml) inoculate anaerobic bottle firstIf inadequate sample obtained (less than 20 ml) inoculate aerobic bottle firstFor vacutainer method draw: Fill aerobic bottle first, then anaerobic Performed By: #### B LDCULT ####[facility] (DEFAULT)[address] [facility] [place] [address] DARYL AURIS SCREEN BY PCRo n 08-28-2023 Daryl auris Screen by PCR Not detected Normal Not Detected [facility] Comment on above: Order Comment: This test was performed using a real-time PCR assay. This test was developed, and its performance characteristics determined by [facility]. It has not been cleared or approved by the FDA. The laboratory is regulated under CLIA as qualified to perform high-complexity testing. This test is used for clinical purposes. It should not be regarded as investigational or for research. Performed By: #### C ANDIDA AURIS SCREEN BY PCR ####[facility] (DEFAULT)[address] [facility] [place] [address] CBC AND ELECTRONIC DIFFon Abs Baso Auto < Normal 0.00-0.09 [facility] Comment on above: Performed By: #### L [id number] ####[facility] (DEFAULT)[address] [facility] [place] [address] Basophils/100 WBC (Bld) 0.6 % Normal [facility] Comment on above: Performed By: #### L [id number] ####[facility] (DEFAULT)[address] [facility] [place] [address] DIFF STATUS Electronic Differential Normal [facility] Comment on above: Performed By: #### L [id number] ####[facility] (DEFAULT)[address] [facility] [place] [address] Eosinophils (Bld) [#/Vol] 0.10 10*3/uL Normal 0.00-0.48 [facility] Comment on above: Performed By: #### L [id number] ####[facility] (DEFAULT)[address] [facility] [place] [address] Eosinophils/100 WBC (Bld) 2.1 % Normal [facility] Comment on above: Performed By: #### L [id number] ####[facility] (DEFAULT)[address] [facility] [place] [address] Hematocrit (Bld) [Volume fraction] 37.9 % Low 39.6-48.8 [facility] Comment on above: Performed By: #### L [id number] ####[facility] (DEFAULT)[address] [facility] [place] [address] Hemoglobin (Bld) [Mass/Vol] 12.4 g/dL Low 13.4-16.8 [facility] Comment on above: Performed By: #### L [id number] ####[facility] (DEFAULT)[address] [facility] [place] [address] Immature Grans % 0.6 % Normal [facility] Comment on above: Performed By: #### L [id number] ####[facility] (DEFAULT)[address] [place] [address] Immature Grans Absolute < Normal <=0.07 [facility] Comment on above: Performed By: #### L [id number] ####[facility] (DEFAULT)[address] [place] [address] Lymphocytes (Bld) [#/Vol] 1.76 10*3/uL Normal 0.83-3.57 [facility] Comment on above: Performed By: #### L [id number] ####[facility] (DEFAULT)[address] [place] [address] Lymphocytes/100 WBC (Bld) 37.1 % Normal [facility] Comment on above: Performed By: #### L [id number] ####[facility] (DEFAULT)[address] [place] [address] MCV (RBC) [Entitic vol] 85.0 fL Normal 79.0-94.5 [facility] Comment on above: Performed By: #### L [id number] ####[facility] (DEFAULT)[address] [facility] [place] [address] Mean Cell Hgb 27.8 pg Normal 26.1-33.3 [facility] Comment on above: Performed By: #### L [id number] ####[facility] (DEFAULT)[address] [facility] [place] [address] Mean Cell Hgb Conc 32.7 g/dL Normal 31.9-36.5 [facility] Comment on above: Performed By: #### L [id number] ####[facility] (DEFAULT)[address] [facility] [place] [address] Monocytes (Bld) [#/Vol] 0.66 10*3/uL Normal 0.24-0.93 [facility] Comment on above: Performed By: #### L [id number] ####[facility] (DEFAULT)[address] [facility] [place] [address] Monocytes/100 WBC (Bld) 13.9 % Normal [facility] Comment on above: Performed By: #### L [id number] ####[facility] (DEFAULT)[address] [facility] [place] [address] Nucleated RBC 0.0 /100 WBC Normal <=0.2 [facility] Comment on above: Performed By: #### L [id number] ####[facility] (DEFAULT)[address] [facility] [place] [address] Platelet mean volume (Bld) [Entitic vol] 9.3 fL Normal 8.7-12.3 [facility] Comment on above: Performed By: #### L [id number] ####[facility] (DEFAULT)[address] [facility] [place] [address] Platelets (Bld) [#/Vol] 262 10*3/uL Normal 146-337 [facility] Comment on above: Performed By: #### L [id number] ####[facility] (DEFAULT)[address] [facility] [place] [address] RBC (Bld) [#/Vol] 4.46 10*6/uL Normal 4.38-5.83 [facility] Comment on above: Performed By: #### L [id number] ####[facility] (DEFAULT)[address] [place] [address] RBC Distribution 13.4 % Normal 10.9-14.3 [facility] Comment on above: Performed By: #### L [id number] ####[facility] (DEFAULT)[address] [place] [address] Segs + Bands Auto 45.7 % Normal [facility] Comment on above: Performed By: #### L [id number] ####[facility] (DEFAULT)[address] [place] [address] Segs + Bands,Absolute Auto 2.16 K/uL Normal 1.57-6.19 [facility] Comment on above: Performed By: #### L [id number] ####[facility] (DEFAULT)[address] [place] [address] WBC (Bld) [#/Vol] 4.74 10*3/uL Normal 3.73-10.10 [facility] Comment on above: Performed By: #### L [id number] ####[facility] (DEFAULT)[address] [place] [address] Basophils (Bld) [#/Vol] K/uL 0.00 - 0.09 K/uL [facility] Basophils/100 WBC (Bld) 0.6 % [facility] Differential cell count method Nom (Bld) Electronic Differential [facility] Eosinophils (Bld) [#/Vol] 0.10 10*3/uL 0.00 [...] Nucleated RBC/100 WBC (Bld) [Ratio] 0.0 % [facility] Platelet mean volume (Bld) [Entitic vol] 9.3 fL 8.7 - 12.3 fL [facility] Platelets (Bld) [#/Vol] 262 10*3/uL 146 - 337 K/uL [facility] RBC (Bld) [#/Vol] 4.46 10*6/uL [facility] Segmented neutrophils/100 WBC (Bld) 45.7 % [facility] WBC (Bld) [#/Vol] 4.74 10*3/uL 3.73 - 10. 10 K/uL [facility] CHEM 6 (LYTES, BUN CREA)on 0 08-28-2023 Anion gap [Moles/Vol] 13 mmol/L Normal 7-17 [facility] Comment on above: Performed By: #### C HM6 ####[facility] (DEFAULT)[address] [place] [address] Chloride [Moles/Vol] 103 mmol/L Normal 98-108 [facility] Comment on above: Performed By: #### C HM6 ####[facility] (DEFAULT)[address] [place] [address] CO2 [Moles/Vol] 22 mmol/L Normal 21-31 [facility] Comment on above: Performed By: #### C HM6 ####[facility] (DEFAULT)[address] [place] [address] Creatinine [Mass/Vol] 1.62 mg/dL High 0.70-1.30 [facility] Comment on above: Performed By: #### C HM6 ####[facility] (DEFAULT)[address] [place] [address] GFR/1.73 sq M.predicted among non-blacks MDRD (S/P/Bld) [Vol rate/Area] 51 mL/min/{1.73_m2} Low >=60 [facility] Comment on above: Result Comment: Repo rted eGFR is based on the CKD-EPI 2020 equation using creatinine, age, and sex. Performed By: #### C HM6 ####[facility] (DEFAULT)[address] [place] [address] Potassium [Moles/Vol] 4.3 mmol/L Normal 3.5-5.0 [facility] Comment on above: Performed By: #### C HM6 ####[facility] (DEFAULT)[address] [place] [address] Sodium [Moles/Vol] 134 mmol/L Low 135-145 [facility] Comment on above: Performed By: #### C HM6 ####[facility] (DEFAULT)[address] [place] [address] Urea nitrogen [Mass/Vol] 22 mg/dL Normal 7-25 [facility] Comment on above: Performed By: #### C HM6 ####[facility] (DEFAULT)[address] [place] [address] Urea nitrogen/Creatinine [Mass ratio] 14 mg/mg Normal [facility] Comment on above: Performed By: #### C HM6 ####[facility] (DEFAULT)[address] [place] [address] Anion gap [Moles/Vol] 13 mmol/L 7 - 17 [facility] Chloride [Moles/Vol] 103 mmol/L 98 - 10 8 mmol/L [facility] CO2 [Moles/Vol] 22 mmol/L 21 - 31 mmol/L [facility] Creatinine [Mass/Vol] 1.62 mg/dL High 0.70 - 1.30 mg/dL [facility] eGFR, CKD-EPI, Male 51 Low - PINF [facility] Interpretation and review of laboratory results Abnormal [facility] Potassium [Moles/Vol] 4.3 mmol/L 3.5 - 5.0 mmol/L [facility] Sodium [Moles/Vol] 134 mmol/L Low 135 - 145 mmol/L [facility] Urea nitrogen [Mass/Vol] 22 mg/dL 7 - 25 mg/dL [facility] Urea nitrogen/Creatinine [Mass ratio] 14 mg/mg [facility] IMMUNOCOMPROMISED RESPIRATOR Y PANELon 08-28-2023 Adenovirus - Pcr Not detected Normal Not Detected [facility] Comment on above: Order Comment: Viral [...] acid assay. Performed By: #### I CRESP ####[facility] (DEFAULT)[address] [place] [address], [place] [address] Bordetella Parapertussis Not detected Normal Not Detected [facility] Comment on above: Order Comment: Viral [...] acid assay. Performed By: #### I CRESP ####[facility] (DEFAULT)[address] [place] [address], [place] [address] Bordetella Pertussis Not detected Normal Not Detected [facility] Comment on above: Order Comment: Viral [...] acid assay. Performed By: #### I CRESP ####[facility] (DEFAULT)[address] [place] [address] Chlamydia Pneumoniae Not detected Normal Not Detected [facility] Comment on above: Order Comment: Viral [...] acid assay. Performed By: #### I CRESP ####[facility] (DEFAULT)[address] [place] [address], [place] [address] Coronavirus 229E Not detected Normal Not Detected [facility] Comment on above: Order Comment: Viral [...] acid assay. Performed By: #### I CRESP ####[facility] (DEFAULT)[address] [place] [address], [place] [address] Coronavirus Hku1 Not detected Normal Not Detected [facility] Comment on above: Order Comment: Viral [...] acid assay. Performed By: #### I CRESP ####[facility] (DEFAULT)[address] [place] [address], [place] [address] Coronavirus Nl63 Not detected Normal Not Detected [facility] Comment on above: Order Comment: Viral [...] acid assay. Performed By: #### I CRESP ####[facility] (DEFAULT)[address] [place] [address], [place] [address] Coronavirus Oc43 Not detected Normal Not Detected [facility] Comment on above: Order Comment: Viral [...] acid assay. Performed By: #### I CRESP ####[facility] (DEFAULT)[address] [place] [address] Influenza A - Pcr Not detected Normal Not Detected [facility] Comment on above: Order Comment: Viral [...] acid assay. Performed By: #### I CRESP ####[facility] (DEFAULT)[address] [place] [address], [place] [address] Influenza B - Pcr Not detected Normal Not Detected [facility] Comment on above: Order Comment: Viral [...] acid assay. Performed By: #### I CRESP ####[facility] (DEFAULT)[address] [place] [address], [place] [address] Metapneumovirus - Pcr Not detected Normal Not Detected [facility] Comment on above: Order Comment: Viral [...] acid assay. Performed By: #### I CRESP ####[facility] (DEFAULT)[address] [place] [address] Mycoplasma Pneumoniae Not detected Normal Not Detected [facility] Comment on above: Order Comment: Viral [...] assay. Performed By: #### I CRESP ####[facility] (DEFAULT)[address] [place] [address] Parainfluenza 1 - Pcr Not detected Normal Not Detected [facility] Comment on above: Order Comment: Viral [...] acid assay. Performed By: #### I CRESP ####[facility] (DEFAULT)[address] [place] [address] Parainfluenza 2 - Pcr Not detected Normal Not Detected [facility] Comment on above: Order Comment: Viral [...] acid assay. Performed By: #### I CRESP ####[facility] (DEFAULT)[address] [place] [address], [place] [address] Parainfluenza 3 - Pcr Not detected Normal Not Detected [facility] Comment on above: Order Comment: Viral [...] assay. Performed By: #### I CRESP ####[facility] (DEFAULT)[address] [facility] [place] [address] Parainfluenza 4 - Pcr Not detected Normal Not Detected [facility] Comment on above: Order Comment: Viral [...] acid assay. Performed By: #### I CRESP ####[facility] (DEFAULT)[address] [place] [address] Rhinovirus/Enterovir us - PCR Not detected Normal Not Detected [facility] Comment on above: Order Comment: Viral [...] acid assay. Performed By: #### I CRESP ####[facility] (DEFAULT)[address] [place] [address] Rsv - Pcr Not detected Normal Not Detected [facility] Comment on above: Order Comment: Viral [...] acid assay. Performed By: #### I CRESP ####[facility] (DEFAULT)[address] [place] [address] SARS-CoV-2 (COVID-19) RNA ESTELITA+probe Ql (Unsp spec) Not detected Normal NOT DETECTED [facility] Comment on above: Order Comment: Viral [...] acid assay. Performed By: #### I CRESP ####[facility] (DEFAULT)[address] [place] [address] Portable XR Chest Viewson Radiology Study observation [...] Not detected Not Detected [facility] FLUBV RNA ESTELITA+probe Ql (Unsp spec) Not detected Not Detected [facility] HCoV 229E RNA ESTELITA+non-probe Ql (Nph) Not detected Not Detected [facility] HCoV HKU1 RNA ESTELITA+non-probe Ql (Nph) Not detected Not Detected [facility] HCoV NL63 RNA ESTELITA+non-probe Ql (Nph) Not detected Not Detected [facility] HCoV OC43 RNA ESTELITA+non-probe Ql (Nph) Not detected Not Detected [facility] hMPV A RNA ESTELITA+probe Ql (Unsp spec) Not detected Not Detected [facility] Interpretation and review of laboratory results Normal [facility] M. pneumoniae DNA ESTELITA+probe Ql (Unsp spec) Not detected Not Detected [facility] Parainfluenza virus 1 RNA ESTELITA+probe Ql (Unsp spec) Not detected Not Detected [facility] Parainfluenza virus 2 RNA ESTELITA+probe Ql (Unsp spec) Not detected Not Detected [facility] Parainfluenza virus 3 RNA ESTELITA+probe Ql (Unsp spec) Not detected [facility] Parainfluenza virus 4 RNA ESTELITA+probe Ql (Unsp spec) Not detected Not Detected [facility] Rhinovirus+Enterovir us RNA ESTELITA+probe Ql (Unsp spec) Not detected Not Detected [facility] RSV RNA ESTELITA+probe Ql (Unsp spec) Not detected Not Detected [facility] SARS-CoV-2 (COVID-19) RNA ESTELITA+probe Ql (Unsp spec) Not detected NOT DETECTED [facility] ALBUMINon 04-28-2023 Albumin [Mass/Vol] 4.0 g/dL Normal 3.4-5.0 [facility] Comment on above: Performed By: #### C MP #### [facility] [address] [place] [address] Dr. Dwight Waters ALKALINE PHOSPHAon ALP [Catalytic activity/Vol] 106 U/L Normal 46-116 [facility] Comment on above: Performed By: #### F [id number] #### [facility] [address] [place] [address] Dr. Dwight Waters BILIRUBIN CONJUGATED (DIRECT )on 04-28-2023 BILI, CONJUGATED 0.3 mg/dL Critically high 0.0-0.2 [facility] Comment on above: Performed By: #### C MP #### [facility] [address] [place] [address] Dr. Dwight Waters BILIRUBIN TOTALon 04-28-2023 Bilirubin [Mass/Vol] 1.4 mg/dL Critically high 0.2-1.0 [facility] Comment on above: Performed By: #### C MP #### [facility] [address] [place] [address] Dr. Dwight Waters BUNon 04-28-2023 Urea nitrogen [Mass/Vol] 12.0 mg/dL Normal 7.0-18.0 [facility] Comment on above: Performed By: #### U RTPCR #### [facility] [address] [place] [address] Dr. Dwight Waters CALCIUMon 04-28-2023 Calcium [Mass/Vol] 9.3 mg/dL Normal 8.5-10.1 [facility] Comment on above: Performed By: #### U RTPCR #### [facility] [address] [place] [address] Dr. Dwight Waters CBC AUTO DIFFon 04-28-2023 BASO # 0.1 103/ul Normal 0.0-0.1 [facility] Comment on above: Performed By: #### C BC #### [facility] [address] [place] [address] Dr. Dwight Waters Basophils/100 WBC (Bld) 0.9 % Normal 0.2-2.0 [facility] Comment on above: Performed By: #### C BC #### [facility] [address] [place] [address] Dr. Dwight Waters EO # 0.2 103/ul Normal 0.0-0.7 [facility] Comment on above: Performed By: #### C BC #### [facility] [address] [place] [address] Dr. Dwight Waters Eosinophils/100 WBC (Bld) 3.8 % Normal 0.9-7.0 [facility] Comment on above: Performed By: #### C BC #### [facility] [address] [place] [address] Dr. Dwight Waters Erythrocyte distribution width (RBC) [Ratio] 12.5 % Normal 11.0-15.0 [facility] Comment on above: Performed By: #### C BC #### [facility] [address] [place] [address] Dr. Dwight Waters Hematocrit (Bld) [Volume fraction] 49.8 % Normal 42.0-54.0 [facility] Comment on above: Performed By: #### C BC #### [facility] [address] [place] [address] Dr. Dwight Waters Hemoglobin (Bld) [Mass/Vol] 16.4 g/dL Normal 14.0-18.0 [facility] Comment on above: Performed By: #### C BC #### [facility] [address] [place] [address] Dr. Dwight Waters IG # 0.01 10e3/ul Normal 0.00-0.03 [facility] Comment on above: Performed By: #### C BC #### [facility] [address] [place] [address] Dr. Dwight Waters IG % 0.2 % Normal 0.0-0.5 [facility] Comment on above: Performed By: #### C BC #### [facility] [address] [place] [address] Dr. Dwight Waters LYMPH # 2.1 103/ul Normal 1.2-3.8 [facility] Comment on above: Performed By: #### C BC #### [facility] [address] [place] [address] Dr. Dwight Waters Lymphocytes/100 WBC (Bld) 39.1 % Normal 20.5-60.0 [facility] Comment on above: Performed By: #### C BC #### [facility] [address] [place] [address] Dr. Dwight Waters MANUAL DIFF REQ NO Normal [facility] Comment on above: Performed By: #### C BC #### [facility] [address] [place] [address] Dr. Dwight Waters MCH (RBC) [Entitic mass] 28.6 pg Normal 25.9-34.0 [facility] Comment on above: Performed By: #### C BC #### [facility] [address] [place] [address] Dr. Dwight Waters MCHC (RBC) [Mass/Vol] 32.9 g/dL Normal 29.9-35.2 [facility] Comment on above: Performed By: #### C BC #### [facility] [address] [place] [address] Dr. Dwight Waters MCV (RBC) [Entitic vol] 86.9 fL Normal 80.0-94.0 [facility] Comment on above: Performed By: #### C BC #### [facility] [address] [place] [address] Dr. Dwight Waters MONO # 0.6 103/ul Normal 0.3-0.8 [facility] Comment on above: Performed By: #### C BC #### [facility] [address] [place] [address] Dr. Dwight Waters Monocytes/100 WBC (Bld) 10.6 % Normal 1.7-12.0 [facility] Comment on above: Performed By: #### C BC #### [facility] [address] [place] [address] Dr. Dwight Waters NEUT # 2.5 103/ul Normal 1.4-6.5 [facility] Comment on above: Performed By: #### C BC #### [facility] [address] [place] [address] Dr. Dwight Waters Neutrophils/100 WBC (Bld) 45.4 % Normal 43.0-75.0 [facility] Comment on above: Performed By: #### C BC #### [facility] [address] [place] [address] Dr. Dwight Waters Platelet mean volume (Bld) [Entitic vol] 9.3 fL Critically low 9.5-13.5 [facility] Comment on above: Performed By: #### C BC #### [facility] [address] [place] [address] Dr. Dwight Waters PLT 248 103/ul Normal 150-450 [facility] Comment on above: Performed By: #### C BC #### [facility] [address] [place] [address] Dr. Dwight Waters RBC 5.73 106/ul Normal 4.70-6.10 [facility] Comment on above: Performed By: #### C BC #### [facility] [address] [place] [address] Dr. Dwight Waters WBC 5.5 103/ul Normal 4.0-11.0 [facility] Comment on above: Performed By: #### C BC #### [facility] [address] [place] [address] Dr. Dwight Waters CHLORIDEon 04-28-2023 Chloride [Moles/Vol] 107 mmol/L Normal 98-107 [facility] Comment on above: Performed By: #### U RTPCR #### [facility] [address] [place] [address] Dr. Dwight Waters CO2on 04-28-2023 CO2 [Moles/Vol] 28.9 mmol/L Normal 21.0-32.0 [facility] Comment on above: Performed By: #### U RTPCR #### [facility] [address] [place] [address] Dr. Dwight Waters CREATININEon 04-28-2023 Creatinine [Mass/Vol] 1.17 mg/dL Normal 0.70-1.30 [facility] Comment on above: Performed By: #### U RTPCR #### [facility] [address] [place] [address] Dr. Dwight Waters EGFR-AF BRITISH >60 Normal >=60 [facility] Comment on above: Performed By: #### U RTPCR #### [facility] [address] [place] [address] Dr. Dwight Waters EGFR-NON AF BRITISH >60 Normal >=60 [facility] Comment on above: Performed By: #### U RTPCR #### [facility] [address] [place] [address] Dr. Dwight Waters GGTon 04-28-2023 Gamma glutamyl transferase [Catalytic activity/Vol] 27 U/L Normal 15-85 [facility] Comment on above: Performed By: #### U RTPCR #### [facility] [address] [place] [address] Dr. Dwight Waters GLUCOSE BLOODon 04-28-2023 Glucose [Mass/Vol] 110 mg/dL Critically high 74-106 [facility] Comment on above: Performed By: #### U RTPCR #### [facility] [address] [place] [address] Dr. Dwight Waters MAGNESIUMon 04-28-2023 Magnesium [Mass/Vol] 1.7 mg/dL Critically low 1.8-2.4 [facility] Comment on above: Performed By: #### U RTPCR #### [facility] [address] [place] [address] Dr. Dwight Waters NAon 04-28-2023 Sodium [Moles/Vol] 144 mmol/L Normal 136-145 [facility] Comment on above: Performed By: #### U RTPCR #### [facility] [address] [place] [address] Dr. Dwight Waters PHOSPHORUSon 04-28-2023 Phosphate [Mass/Vol] 3.2 mg/dL Normal 2.6-4.7 [facility] Comment on above: Performed By: #### U RTPCR #### [facility] [address] [place] [address] Dr. Dwight Waters POTASSIUMon 04-28-2023 Potassium [Moles/Vol] 4.0 mmol/L Normal 3.5-5.1 [facility] Comment on above: Performed By: #### U RTPCR #### [facility] [address] [place] [address] Dr. Dwight Waters SGOToamanda 04-28-2023 AST [Catalytic activity/Vol] 25 U/L Normal 15-37 [facility] Comment on above: Performed By: #### C MP #### [facility] [address] [place] [address] Dr. Dwight Waters [facility] ALT [Catalytic activity/Vol] 40 U/L Normal 16-63 [facility] Comment on above: Performed By: #### C MP #### [facility] [address] [place] [address] Dr. Dwight Waters URINE T PROTEIN CREAT RATIOo n 04-28-2023 Protein (U) [Mass/Vol] 10.1 mg/dL Normal <=12.0 [facility] Comment on above: Performed By: #### U RTPCR #### [facility] [address] [place] [address] Dr. Dwight Waters UR PROT CREAT RAT 0.14 Normal [facility] Comment on above: Performed By: #### U RTPCR #### [facility] [address] [place] [address] Dr. Dwight Waters URINE CREAT 74.40 mg/dL Normal 20.00-300.00 [facility] Comment on above: Performed By: #### U RTPCR #### [facility] [address] [place] [address] Dr. Dwight Waters Office Visiton 04-13-2023 Follow-up visit [id number] George Styles 1970 M Date Provider Department Center 04/13/2023 MIGUEL PARADA [facility] Family History Problem Relation Age of Onset Coronary artery disease Mother Coronary artery disease Father Family Status - Relation Status Age at Mother Father Level of Service:82206 IN OFFICE/OUTPATIENT ESTABLISHED LOW MDM 20-29 MIN Reason for Visit and Comments: Hypertension [723034] Hyperlipidemia [182] Normal [facility] BK VIRUS PCR QUANTon 023 BKV DNA QUANT PCR PLASMA Negative Normal Negative [facility] Comment on above: Result Comment: No B K DNA detected. . The linear range of the assay is 22 - 100,000,000 IU/mL. Performed By: #### B KVIRUS #### [facility] [address] [place] [address] Dr. Dwight Waters Log10 BKV DNA Plasma Normal [facility] Comment on above: Performed By: #### B KVIRUS #### [facility] [address] [place] [address] Dr. Dwight Waters FK506 (TACROLIMUS) WHOLE BLO ODon 03-04-2023 Tacrolimus (FK506), Blood 5.9 ng/mL Normal 2.0-20.0 [facility] Comment on above: Result Comment: Trou gh (immediately following transplant) 15.0 . Trough (steady state, 2 weeks or more after transplant): 3.0 - 8.0 . Performed by LC-MS/MS technology. Performed By: #### C MP #### [facility] [address] [place] [address] Dr. Dwight Waters ALBUMINon 03-02-2023 Albumin [Mass/Vol] 3.9 g/dL Normal 3.4-5.0 [facility] Comment on above: Performed By: #### U RTPCR #### [facility] [address] [place] [address] Dr. Dwight Waters ALKALINE PHOSPHAon ALP [Catalytic activity/Vol] 105 U/L Normal 46-116 [facility] Comment on above: Performed By: #### U RTPCR #### [facility] [address] [place] [address] Dr. Dwight Waters BILIRUBIN CONJUGATED (DIRECT )on 03-02-2023 BILI, CONJUGATED 0.2 mg/dL Normal 0.0-0.2 [facility] Comment on above: Performed By: #### U RTPCR #### [facility] [address] [place] [address] Dr. Dwight Waters BILIRUBIN TOTALon 03-02-2023 Bilirubin [Mass/Vol] 0.9 mg/dL Normal 0.2-1.0 [facility] Comment on above: Performed By: #### U RTPCR #### [facility] [address] [place] [address] Dr. Dwight Waters CBC AUTO DIFFon 03-02-2023 BASO # 0.1 103/ul Normal 0.0-0.1 [facility] Comment on above: Performed By: #### C BC #### [facility] [address] [place] [address] Dr. Dwight Waters Basophils/100 WBC (Bld) 0.9 % Normal 0.2-2.0 [facility] Comment on above: Performed By: #### C BC #### [facility] [address] [place] [address] Dr. Dwight Waters EO # 0.2 103/ul Normal 0.0-0.7 [facility] Comment on above: Performed By: #### C BC #### [facility] [address] [place] [address] Dr. Dwight Waters Eosinophils/100 WBC (Bld) 3.5 % Normal 0.9-7.0 [facility] Comment on above: Performed By: #### C BC #### [facility] [address] [place] [address] Dr. Dwight Waters Erythrocyte distribution width (RBC) [Ratio] 12.7 % Normal 11.0-15.0 [facility] Comment on above: Performed By: #### C BC #### [facility] [address] [place] [address] Dr. Dwight Waters Hematocrit (Bld) [Volume fraction] 48.2 % Normal 42.0-54.0 [facility] Comment on above: Performed By: #### C BC #### [facility] [address] [place] [address] Dr. Dwight Waters Hemoglobin (Bld) [Mass/Vol] 15.9 g/dL Normal 14.0-18.0 [facility] Comment on above: Performed By: #### C BC #### [facility] [address] [place] [address] Dr. Dwight Waters IG # 0.01 10e3/ul Normal 0.00-0.03 [facility] Comment on above: Performed By: #### C BC #### [facility] [address] [place] [address] Dr. Dwight Waters IG % 0.2 % Normal 0.0-0.5 [facility] Comment on above: Performed By: #### C BC #### [facility] [address] [place] [address] Dr. Dwight Waters LYMPH # 2.1 103/ul Normal 1.2-3.8 [facility] Comment on above: Performed By: #### C BC #### [facility] [address] [place] [address] Dr. Dwight Waters Lymphocytes/100 WBC (Bld) 37.4 % Normal 20.5-60.0 [facility] Comment on above: Performed By: #### C BC #### [facility] [address] [place] [address] Dr. Dwight Waters MANUAL DIFF REQ NO Normal [facility] Comment on above: Performed By: #### C BC #### [facility] [address] [place] [address] Dr. Dwight Waters MCH (RBC) [Entitic mass] 28.3 pg Normal 25.9-34.0 [facility] Comment on above: Performed By: #### C BC #### [facility] [address] [place] [address] Dr. Dwight Waters MCHC (RBC) [Mass/Vol] 33.0 g/dL Normal 29.9-35.2 [facility] Comment on above: Performed By: #### C BC #### [facility] [address] [place] [address] Dr. Dwight Waters MCV (RBC) [Entitic vol] 85.8 fL Normal 80.0-94.0 [facility] Comment on above: Performed By: #### C BC #### [facility] [address] [place] [address] Dr. Dwight Waters MONO # 0.6 103/ul Normal 0.3-0.8 [facility] Comment on above: Performed By: #### C BC #### [facility] [address] [place] [address] Dr. Dwight Waters Monocytes/100 WBC (Bld) 10.2 % Normal 1.7-12.0 [facility] Comment on above: Performed By: #### C BC #### [facility] [address] [place] [address] Dr. Dwight Waters NEUT # 2.7 103/ul Normal 1.4-6.5 [facility] Comment on above: Performed By: #### C BC #### [facility] [address] [place] [address] Dr. Dwight Waters Neutrophils/100 WBC (Bld) 47.8 % Normal 43.0-75.0 [facility] Comment on above: Performed By: #### C BC #### [facility] [address] [place] [address] Dr. Dwight Waters Platelet mean volume (Bld) [Entitic vol] 9.3 fL Critically low 9.5-13.5 [facility] Comment on above: Performed By: #### C BC #### [facility] [address] [place] [address] Dr. Dwight Waters PLT 241 103/ul Normal 150-450 [facility] Comment on above: Performed By: #### C BC #### [facility] [address] [place] [address] Dr. Dwight Waters RBC 5.62 106/ul Normal 4.70-6.10 [facility] Comment on above: Performed By: #### C BC #### [facility] [address] [place] [address] Dr. Dwight Waters WBC 5.7 103/ul Normal 4.0-11.0 [facility] Comment on above: Performed By: #### C BC #### [facility] [address] [place] [address] Dr. Dwight Waters GGTon 03-02-2023 Gamma glutamyl transferase [Catalytic activity/Vol] 25 U/L Normal 15-85 [facility] Comment on above: Performed By: #### U RTPCR #### [facility] [address] [place] [address] Dr. Dwight Waters MAGNESIUMon 03-02-2023 Magnesium [Mass/Vol] 1.6 mg/dL Critically low 1.8-2.4 [facility] Comment on above: Performed By: #### U RTPCR #### [facility] [address] [place] [address] Dr. Dwight Waters PHOSPHORUSon 03-02-2023 Phosphate [Mass/Vol] 3.6 mg/dL Normal 2.6-4.7 [facility] Comment on above: Performed By: #### U RTPCR #### [facility] [address] [place] [address] Dr. Dwight Waters PROF CHEM 8 (BAS METB)on Anion gap [Moles/Vol] 9.4 mmol/L Normal [facility] Comment on above: Performed By: #### U RTPCR #### [facility] [address] [place] [address] Dr. Dwight Waters Calcium [Mass/Vol] 9.3 mg/dL Normal 8.5-10.1 [facility] Comment on above: Performed By: #### U RTPCR #### [facility] [address] [address] [address] Dwight Waters Chloride [Moles/Vol] 108 mmol/L Critically high 98-107 [facility] Comment on above: Performed By: #### U RTPCR #### [facility] [address] [address] [address] Dwight Waters CO2 [Moles/Vol] 27.2 mmol/L Normal 21.0-32.0 [facility] Comment on above: Performed By: #### U RTPCR #### [facility] [address] [address] [address] Dwight Waters Creatinine [Mass/Vol] 1.12 mg/dL Normal 0.70-1.30 [facility] Comment on above: Performed By: #### U RTPCR #### [facility] [address] [address] [address] Dwight Waters EGFR-AF BRITISH >60 Normal >=60 [facility] Comment on above: Performed By: #### U RTPCR #### [facility] [address] [address] [address] Dwight Waters EGFR-NON AF BRITISH >60 Normal >=60 [facility] Comment on above: Performed By: #### U RTPCR #### [facility] [address] [address] [address] Dwight Waters Glucose [Mass/Vol] 113 mg/dL Critically high 74-106 [facility] Comment on above: Performed By: #### U RTPCR #### [facility] [address] [address] [address] Dwight Waters Potassium [Moles/Vol] 3.6 mmol/L Normal 3.5-5.1 [facility] Comment on above: Performed By: #### U RTPCR #### [facility] [address] [address] [address] Dwight Waters Sodium [Moles/Vol] 141 mmol/L Normal 136-145 [facility] Comment on above: Performed By: #### U RTPCR #### [facility] [address] [place] [address] Dr. Dwight Waters Urea nitrogen [Mass/Vol] 14.0 mg/dL Normal 7.0-18.0 [facility] Comment on above: Performed By: #### U RTPCR #### [facility] [address] [place] [address] Dr. Dwight Waters Urea nitrogen/Creatinine [Mass ratio] 12.5 mg/mg Normal [facility] Comment on above: Performed By: #### U RTPCR #### [facility] [address] [place] [address] Dr. Dwight Waters SGOTon 03-02-2023 AST [Catalytic activity/Vol] 20 U/L Normal 15-37 [facility] Comment on above: Performed By: #### U RTPCR #### [facility] [address] [place] [address] Dr. Dwight Waters SGPTon 03-02-2023 ALT [Catalytic activity/Vol] 30 U/L Normal 16-63 [facility] Comment on above: Performed By: #### U RTPCR #### [facility] [address] [place] [address] Dr. Dwight Waters URINE T PROTEIN CREAT RATIOo n 03-02-2023 Protein (U) [Mass/Vol] 10.3 mg/dL Normal <=12.0 [facility] Comment on above: Performed By: #### U RTPCR #### [facility] [address] [place] [address] Dr. Dwight Waters UR PROT CREAT RAT 0.15 Normal [facility] Comment on above: Performed By: #### U RTPCR #### [facility] [address] [place] [address] Dr. Dwight Waters URINE CREAT 68.96 mg/dL Normal 20.00-300.00 [facility] Comment on above: Performed By: #### U RTPCR #### [facility] [address] [place] [address] Dr. Dwight Waters BK VIRUS PCR QUANTon 023 BKV DNA QUANT PCR PLASMA Negative Normal Negative [facility] Comment on above: Result Comment: No B K DNA detected. . The linear range of the assay is 22 - 100,000,000 IU/mL. Performed By: #### C MP #### [facility] [address] [place] [address] Dr. Dwight Waters Log10 BKV DNA Plasma Normal [facility] Comment on above: Performed By: #### C MP #### [facility] [address] [place] [address] Dr. Dwight Waters FK506 (TACROLIMUS) WHOLE BLO ODon 12-31-2022 Tacrolimus (FK506), Blood 5.6 ng/mL Normal 2.0-20.0 [facility] Comment on above: Result Comment: Trou gh (immediately following transplant) 15.0 . Trough (steady state, 2 weeks or more after transplant): 3.0 - 8.0 . Performed by LC-MS/MS technology. Performed By: #### C MP #### [facility] [address] [place] [address] Dr. Dwight Waters ALKALINE PHOSPHAon ALP [Catalytic activity/Vol] 96 U/L Normal 46-116 [facility] Comment on above: Performed By: #### C BC #### [facility] [address] [place] [address] Dr. Dwight Waters BILIRUBIN CONJUGATED (DIRECT )on 12-29-2022 BILI, CONJUGATED 0.3 mg/dL Critically high 0.0-0.2 [facility] Comment on above: Performed By: #### C BC #### [facility] [address] [place] [address] Dr. Dwight Waters BILIRUBIN TOTALon 12-29-2022 Bilirubin [Mass/Vol] 1.1 mg/dL Critically high 0.2-1.0 [facility] Comment on above: Performed By: #### C BC #### [facility] [address] [place] [address] Dr. Dwight Waters CBC AUTO DIFFon 12-29-2022 BASO # 0.1 103/ul Normal 0.0-0.1 [facility] Comment on above: Performed By: #### C MP #### [facility] [address] [address] [address] Dwight Waters Basophils/100 WBC (Bld) 0.8 % Normal 0.2-2.0 [facility] Comment on above: Performed By: #### C MP #### [facility] [address] [address] [address] Dwight Waters EO # 0.2 103/ul Normal 0.0-0.7 [facility] Comment on above: Performed By: #### C MP #### [facility] [address] [address] [address] Dwight Waters Eosinophils/100 WBC (Bld) 3.0 % Normal 0.9-7.0 [facility] Comment on above: Performed By: #### C MP #### [facility] [address] [place] [address] Dr. Dwight Waters Erythrocyte distribution width (RBC) [Ratio] 12.9 % Normal 11.0-15.0 [facility] Comment on above: Performed By: #### C MP #### [facility] [address] [place] [address] Dr. Dwight Waters Hematocrit (Bld) [Volume fraction] 46.9 % Normal 42.0-54.0 [facility] Comment on above: Performed By: #### C MP #### [facility] [address] [place] [address] Dr. Dwight Waters Hemoglobin (Bld) [Mass/Vol] 16.1 g/dL Normal 14.0-18.0 [facility] Comment on above: Performed By: #### C MP #### [facility] [address] [place] [address] Dr. Dwight Waters IG # 0.01 10e3/ul Normal 0.00-0.03 [facility] Comment on above: Performed By: #### C MP #### [facility] [address] [address] [address] Dwight Waters IG % 0.2 % Normal 0.0-0.5 [facility] Comment on above: Performed By: #### C MP #### [facility] [address] [place] [address] Dr. Dwight Waters LYMPH # 1.8 103/ul Normal 1.2-3.8 [facility] Comment on above: Performed By: #### C MP #### [facility] [address] [place] [address] Dr. Dwight Waters Lymphocytes/100 WBC (Bld) 27.9 % Normal 20.5-60.0 [facility] Comment on above: Performed By: #### C MP #### [facility] [address] [place] [address] Dr. Dwight Waters MANUAL DIFF REQ NO Normal [facility] Comment on above: Performed By: #### C MP #### [facility] [address] [place] [address] Dr. Dwight Waters MCH (RBC) [Entitic mass] 28.5 pg Normal 25.9-34.0 [facility] Comment on above: Performed By: #### C MP #### [facility] [address] [place] [address] Dr. Dwight Waters MCHC (RBC) [Mass/Vol] 34.3 g/dL Normal 29.9-35.2 [facility] Comment on above: Performed By: #### C MP #### [facility] [address] [place] [address] Dr. Dwight Waters MCV (RBC) [Entitic vol] 83.2 fL Normal 80.0-94.0 [facility] Comment on above: Performed By: #### C MP #### [facility] [address] [place] [address] Dr. Dwight Waters MONO # 0.5 103/ul Normal 0.3-0.8 [facility] Comment on above: Performed By: #### C MP #### [facility] [address] [place] [address] Dr. Dwight Waters Monocytes/100 WBC (Bld) 8.1 % Normal 1.7-12.0 [facility] Comment on above: Performed By: #### C MP #### [facility] [address] [place] [address] Dr. Dwight Waters NEUT # 3.8 103/ul Normal 1.4-6.5 [facility] Comment on above: Performed By: #### C MP #### [facility] [address] [place] [address] Dr. Dwight Waters Neutrophils/100 WBC (Bld) 60.0 % Normal 43.0-75.0 [facility] Comment on above: Performed By: #### C MP #### [facility] [address] [place] [address] Dr. Dwight Waters Platelet mean volume (Bld) [Entitic vol] 9.2 fL Critically low 9.5-13.5 [facility] Comment on above: Performed By: #### C MP #### [facility] [address] [place] [address] Dr. Dwight Waters PLT 225 103/ul Normal 150-450 [facility] Comment on above: Performed By: #### C MP #### [facility] [address] [place] [address] Dr. Dwight Waters RBC 5.64 106/ul Normal 4.70-6.10 [facility] Comment on above: Performed By: #### C MP #### [facility] [address] [place] [address] Dr. Dwight Waters WBC 6.3 103/ul Normal 4.0-11.0 [facility] Comment on above: Performed By: #### C MP #### [facility] [address] [place] [address] Dr. Dwight Waters GGTon 12-29-2022 Gamma glutamyl transferase [Catalytic activity/Vol] 24 U/L Normal 15-85 [facility] Comment on above: Performed By: #### C MP #### [facility] [address] [place] [address] Dr. Dwight Waters LIPID PROFILEon 12-29-2022 CHOL-HDL RATIO NORM SEE BELOW Normal [facility] Comment on above: Result Comment: 3.3 - 4.4 LOW RISK 4.4 - 7.1 AVERAGE RISK 7.1 - 11.0 MODERATE RISK >11.0 HIGH RISK Performed By: #### U RTPCR #### [facility] [address] [address] [address] Dwight Waters Cholesterol [Mass/Vol] 87 mg/dL Normal <=200 [facility] Comment on above: Performed By: #### U RTPCR #### [facility] [address] [address] [address] Dwight Waters Cholesterol in HDL [Mass/Vol] 44 mg/dL Normal 40-60 [facility] Comment on above: Performed By: #### U RTPCR #### [facility] [address] [address] [address] Dwight Waters Cholesterol in LDL [Mass/Vol] 33.0 mg/dL Normal [facility] Comment on above: Performed By: #### U RTPCR #### [facility] [address] [address] [address] Dwight Waters Cholesterol.total/Ch olesterol in HDL [Mass ratio] 2.0 {ratio} Normal [facility] Comment on above: Performed By: #### U RTPCR #### [facility] [address] [address] [address] Dwight Waters HDL NORMAL > or = 60 mg/dl - LO W CARDIOVASCULAR RISK <40 mg/dl - HIGH CARDIOVASCULAR RISK Normal [facility] Comment on above: Performed By: #### U RTPCR #### [facility] [address] [address] [address] Dwight Waters LDL CALC NORMAL SEE BELOW Normal [facility] Comment on above: Result Comment: <100 mg/dl OPTIMAL 100 - 129 mg/dl NEAR OR ABOVE OPTIMAL 130 - 159 mg/dl BORDERLINE HIGH 160 - 189 mg/dl HIGH >190 mg/dl VERY HIGH Performed By: #### U RTPCR #### [facility] [address] [address] [address] Dwight Waters Triglyceride [Mass/Vol] 50 mg/dL Normal <=150 [facility] Comment on above: Performed By: #### U RTPCR #### [facility] [address] [address] [address] Dwight Waters VLDL CALC 10.0 mg/dL Normal [facility] Comment on above: Performed By: #### U RTPCR #### [facility] [address] [address] [address] Dwight Waters MAGNESIUMon 12-29-2022 Magnesium [Mass/Vol] 1.6 mg/dL Critically low 1.8-2.4 [facility] Comment on above: Performed By: #### C BC #### [facility] [address] [place] [address] Dr. Dwight Waters RENAL FUNCTION PANELon 12-29 Albumin [Mass/Vol] 3.9 g/dL Normal 3.4-5.0 [facility] Comment on above: Performed By: #### C BC #### [facility] [address] [place] [address] Dr. Diwght Waters Calcium [Mass/Vol] 9.2 mg/dL Normal 8.5-10.1 [facility] Comment on above: Performed By: #### C BC #### [facility] [address] [place] [address] Dr. Dwight Waters Chloride [Moles/Vol] 109 mmol/L Critically high 98-107 [facility] Comment on above: Performed By: #### C BC #### [facility] [address] [place] [address] Dr. Dwight Waters CO2 [Moles/Vol] 27.0 mmol/L Normal 21.0-32.0 [facility] Comment on above: Performed By: #### C BC #### [facility] [address] [place] [address] Dr. Dwight Waters Creatinine [Mass/Vol] 1.02 mg/dL Normal 0.70-1.30 [facility] Comment on above: Performed By: #### C BC #### [facility] [address] [place] [address] Dr. Dwight Waters EGFR-AF BRITISH >60 Normal >=60 [facility] Comment on above: Performed By: #### C BC #### [facility] [address] [place] [address] Dr. Dwight Waters EGFR-NON AF BRITISH >60 Normal >=60 [facility] Comment on above: Performed By: #### C BC #### [facility] [address] [address] [address] Dwight Waters Glucose [Mass/Vol] 117 mg/dL Critically high 74-106 [facility] Comment on above: Performed By: #### C BC #### [facility] [address] [address] [address] Dwight Waters Phosphate [Mass/Vol] 3.2 mg/dL Normal 2.6-4.7 [facility] Comment on above: Performed By: #### C BC #### [facility] [address] [address] [address] Diwght Waters Potassium [Moles/Vol] 4.1 mmol/L Normal 3.5-5.1 [facility] Comment on above: Performed By: #### C BC #### [facility] [address] [address] [address] Dwight Waters Sodium [Moles/Vol] 144 mmol/L Normal 136-145 [facility] Comment on above: Performed By: #### C BC #### [facility] [address] [address] [address] Dwight Waters Urea nitrogen [Mass/Vol] 13.0 mg/dL Normal 7.0-18.0 [facility] Comment on above: Performed By: #### C BC #### [facility] [address] [address] [address] Dwight Albert 12-29-2022 AST [Catalytic activity/Vol] 21 U/L Normal 15-37 [facility] Comment on above: Performed By: #### C BC #### [facility] [address] [address] [address] [facility] ALT [Catalytic activity/Vol] 32 U/L Normal 16-63 [facility] Comment on above: Performed By: #### C BC #### [facility] [address] [address] [address] Dwight Waters URINE T PROTEIN CREAT RATIOo n 12-29-2022 Protein (U) [Mass/Vol] 14.3 mg/dL Critically high <=12.0 [facility] Comment on above: Performed By: #### U RTPCR #### [facility] [address] [place] [address] Dr. Dwight Waters UR PROT CREAT RAT 0.17 Normal [facility] Comment on above: Performed By: #### U RTPCR #### [facility] [address] [place] [address] Dr. Dwight Waters URINE CREAT 86.58 mg/dL Normal 20.00-300.00 [facility] Comment on above: Performed By: #### U RTPCR #### [facility] [address] [place] [address] Dr. Dwight Waters FK506 (TACROLIMUS) WHOLE BLO ODon 11-06-2022 Tacrolimus (FK506), Blood 4.9 ng/mL Normal 2.0-20.0 [facility] Comment on above: Result Comment: Trou gh (immediately following transplant) 15.0 . Trough (steady state, 2 weeks or more after transplant): 3.0 - 8.0 . Performed by LC-MS/MS technology. Performed By: #### U RTPCR #### [facility] [address] [place] [address] Dr. Dwight Waters ALKALINE PHOSPHAon ALP [Catalytic activity/Vol] 86 U/L Normal 46-116 [facility] Comment on above: Performed By: #### U RTPCR #### [facility] [address] [place] [address] Dr. Dwight Waters BILIRUBIN CONJUGATED (DIRECT )on 11-04-2022 BILI, CONJUGATED 0.2 mg/dL Normal 0.0-0.2 [facility] Comment on above: Performed By: #### U RTPCR #### [facility] [address] [place] [address] Dr. Dwight Waters BILIRUBIN TOTALon 11-04-2022 Bilirubin [Mass/Vol] 0.8 mg/dL Normal 0.2-1.0 [facility] Comment on above: Performed By: #### U RTPCR #### [facility] [address] [place] [address] Dr. Dwight Waters CBC AUTO DIFFon 11-04-2022 BASO # 0.1 103/ul Normal 0.0-0.1 [facility] Comment on above: Performed By: #### U RTPCR #### [facility] [address] [place] [address] Dr. Dwight Waters Basophils/100 WBC (Bld) 0.9 % Normal 0.2-2.0 [facility] Comment on above: Performed By: #### U RTPCR #### [facility] [address] [place] [address] Dr. Dwight Waters EO # 0.2 103/ul Normal 0.0-0.7 [facility] Comment on above: Performed By: #### U RTPCR #### [facility] [address] [place] [address] Dr. Dwight Waters Eosinophils/100 WBC (Bld) 3.7 % Normal 0.9-7.0 [facility] Comment on above: Performed By: #### U RTPCR #### [facility] [address] [place] [address] Dr. Dwight Waters Erythrocyte distribution width (RBC) [Ratio] 12.9 % Normal 11.0-15.0 [facility] Comment on above: Performed By: #### U RTPCR #### [facility] [address] [place] [address] Dr. Dwight Waters Hematocrit (Bld) [Volume fraction] 48.3 % Normal 42.0-54.0 [facility] Comment on above: Performed By: #### U RTPCR #### [facility] [address] [place] [address] Dr. Dwight Waters Hemoglobin (Bld) [Mass/Vol] 15.6 g/dL Normal 14.0-18.0 [facility] Comment on above: Performed By: #### U RTPCR #### [facility] [address] [place] [address] Dr. Dwight Waters IG # 0.01 10e3/ul Normal 0.00-0.03 [facility] Comment on above: Performed By: #### U RTPCR #### [facility] [address] [place] [address] Dr. Dwight Waters IG % 0.2 % Normal 0.0-0.5 [facility] Comment on above: Performed By: #### U RTPCR #### [facility] [address] [place] [address] Dr. Dwight Waters LYMPH # 1.9 103/ul Normal 1.2-3.8 [facility] Comment on above: Performed By: #### U RTPCR #### [facility] [address] [place] [address] Dr. Dwight Waters Lymphocytes/100 WBC (Bld) 33.0 % Normal 20.5-60.0 [facility] Comment on above: Performed By: #### U RTPCR #### [facility] [address] [place] [address] Dr. Dwight Waters MANUAL DIFF REQ NO Normal [facility] Comment on above: Performed By: #### U RTPCR #### [facility] [address] [place] [address] Dr. Dwight Waters MCH (RBC) [Entitic mass] 27.6 pg Normal 25.9-34.0 [facility] Comment on above: Performed By: #### U RTPCR #### [facility] [address] [place] [address] Dr. Dwight Waters MCHC (RBC) [Mass/Vol] 32.3 g/dL Normal 29.9-35.2 [facility] Comment on above: Performed By: #### U RTPCR #### [facility] [address] [place] [address] Dr. Dwight Waters MCV (RBC) [Entitic vol] 85.5 fL Normal 80.0-94.0 [facility] Comment on above: Performed By: #### U RTPCR #### [facility] [address] [place] [address] Dr. Dwight Waters MONO # 0.5 103/ul Normal 0.3-0.8 [facility] Comment on above: Performed By: #### U RTPCR #### [facility] [address] [address] [address] Dwight Waters Monocytes/100 WBC (Bld) 8.8 % Normal 1.7-12.0 [facility] Comment on above: Performed By: #### U RTPCR #### [facility] [address] [address] [address] Dwight Waters NEUT # 3.1 103/ul Normal 1.4-6.5 [facility] Comment on above: Performed By: #### U RTPCR #### [facility] [address] [address] [address] Dwight Waters Neutrophils/100 WBC (Bld) 53.4 % Normal 43.0-75.0 [facility] Comment on above: Performed By: #### U RTPCR #### [facility] [address] [place] [address] Dr. Dwight Waters Platelet mean volume (Bld) [Entitic vol] 9.2 fL Critically low 9.5-13.5 [facility] Comment on above: Performed By: #### U RTPCR #### [facility] [address] [place] [address] Dr. Dwight Waters PLT 255 103/ul Normal 150-450 [facility] Comment on above: Performed By: #### U RTPCR #### [facility] [address] [place] [address] Dr. Dwight Waters RBC 5.65 106/ul Normal 4.70-6.10 [facility] Comment on above: Performed By: #### U RTPCR #### [facility] [address] [place] [address] Dr. Dwight Waters WBC 5.7 103/ul Normal 4.0-11.0 [facility] Comment on above: Performed By: #### U RTPCR #### [facility] [address] [place] [address] Dr. Dwight Waters GGTon 11-04-2022 Gamma glutamyl transferase [Catalytic activity/Vol] 22 U/L Normal 15-85 [facility] Comment on above: Performed By: #### U RTPCR #### [facility] [address] [address] [address] Dwight Waters MAGNESIUMon 11-04-2022 Magnesium [Mass/Vol] 1.8 mg/dL Normal 1.8-2.4 [facility] Comment on above: Performed By: #### U RTPCR #### [facility] [address] [place] [address] Dr. Dwight Waters RENAL FUNCTION PANELon 11-04 Albumin [Mass/Vol] 3.8 g/dL Normal 3.4-5.0 [facility] Comment on above: Performed By: #### U RTPCR #### [facility] [address] [place] [address] Dr. Dwight Waters Calcium [Mass/Vol] 9.3 mg/dL Normal 8.5-10.1 [facility] Comment on above: Performed By: #### U RTPCR #### [facility] [address] [place] [address] Dr. Dwight Waters Chloride [Moles/Vol] 107 mmol/L Normal 98-107 [facility] Comment on above: Performed By: #### U RTPCR #### [facility] [address] [place] [address] Dr. Dwight Waters CO2 [Moles/Vol] 29.2 mmol/L Normal 21.0-32.0 [facility] Comment on above: Performed By: #### U RTPCR #### [facility] [address] [place] [address] Dr. Dwight Waters Creatinine [Mass/Vol] 1.07 mg/dL Normal 0.70-1.30 [facility] Comment on above: Performed By: #### U RTPCR #### [facility] [address] [place] [address] Dr. Dwight Waters EGFR-AF BRITISH >60 Normal >=60 [facility] Comment on above: Performed By: #### U RTPCR #### [facility] [address] [place] [address] Dr. Dwight Waters EGFR-NON AF BRITISH >60 Normal >=60 [facility] Comment on above: Performed By: #### U RTPCR #### [facility] [address] [address] [address] Dwight Waters Glucose [Mass/Vol] 106 mg/dL Normal 74-106 [facility] Comment on above: Performed By: #### U RTPCR #### [facility] [address] [place] [address] Dr. Dwight Waters Phosphate [Mass/Vol] 2.8 mg/dL Normal 2.6-4.7 [facility] Comment on above: Performed By: #### U RTPCR #### [facility] [address] [place] [address] Dr. Dwight Waters Potassium [Moles/Vol] 4.1 mmol/L Normal 3.5-5.1 [facility] Comment on above: Performed By: #### U RTPCR #### [facility] [address] [place] [address] Dr. Dwight Waters Sodium [Moles/Vol] 143 mmol/L Normal 136-145 [facility] Comment on above: Performed By: #### U RTPCR #### [facility] [address] [place] [address] Dr. Dwight Waters Urea nitrogen [Mass/Vol] 12.0 mg/dL Normal 7.0-18.0 [facility] Comment on above: Performed By: #### U RTPCR #### [facility] [address] [place] [address] Dr. Dwight Albert 11-04-2022 AST [Catalytic activity/Vol] 19 U/L Normal 15-37 [facility] Comment on above: Performed By: #### U RTPCR #### [facility] [address] [place] [address] Dr. Dwight OLVERAPTon 11-04-2022 ALT [Catalytic activity/Vol] 28 U/L Normal 16-63 [facility] Comment on above: Performed By: #### U RTPCR #### [facility] [address] [place] [address] Dr. Dwight Waters URINE T PROTEIN CREAT RATIOo n 11-04-2022 Protein (U) [Mass/Vol] 10.7 mg/dL Normal <=12.0 [facility] Comment on above: Performed By: #### U RTPCR #### [facility] [address] [place] [address] Dr. Dwight Waters UR PROT CREAT RAT 0.13 Normal [facility] Comment on above: Performed By: #### U RTPCR #### [facility] [address] [place] [address] Dr. Dwight Waters URINE CREAT 84.50 mg/dL Normal 20.00-300.00 [facility] Comment on above: Performed By: #### U RTPCR #### [facility] [address] [place] [address] Dr. Dwight Waters FK506 (TACROLIMUS) WHOLE BLO ODon 09-18-2022 Tacrolimus (FK506), Blood 4.6 ng/mL Normal 2.0-20.0 [facility] Comment on above: Result Comment: Trou gh (immediately following transplant) 15.0 . Trough (steady state, 2 weeks or more after transplant): 3.0 - 8.0 . Performed by LC-MS/MS technology. Performed By: #### U RTPCR #### [facility] [address] [place] [address] Dr. Dwight Waters BK VIRUS PCR QUANTon 022 BKV DNA QUANT PCR PLASMA Negative Normal Negative [facility] Comment on above: Result Comment: No B K DNA detected. . The linear range of the assay is 22 - 100,000,000 IU/mL. Performed By: #### U RTPCR #### [facility] [address] [place] [address] Dr. Dwight Waters Log10 BKV DNA Plasma Normal [facility] Comment on above: Performed By: #### U RTPCR #### [facility] [address] [place] [address] Dr. Dwight Waters ALKALINE PHOSPHAon 2 ALP [Catalytic activity/Vol] 92 U/L Normal 46-116 [facility] Comment on above: Performed By: #### U RTPCR #### [facility] [address] [place] [address] Dr. Dwight Waters BILIRUBIN CONJUGATED (DIRECT )on 09-15-2022 BILI, CONJUGATED 0.3 mg/dL Critically high 0.0-0.2 [facility] Comment on above: Performed By: #### U RTPCR #### [facility] [address] [place] [address] Dr. Dwight Waters BILIRUBIN TOTALon 09-15-2022 Bilirubin [Mass/Vol] 1.1 mg/dL Critically high 0.2-1.0 [facility] Comment on above: Performed By: #### U RTPCR #### [facility] [address] [place] [address] Dr. Dwight Waters CBC AUTO DIFFon 09-15-2022 BASO # 0.1 103/ul Normal 0.0-0.1 [facility] Comment on above: Performed By: #### C BC #### [facility] [address] [place] [address] Dr. Dwight Waters Basophils/100 WBC (Bld) 0.8 % Normal 0.2-2.0 [facility] Comment on above: Performed By: #### C BC #### [facility] [address] [place] [address] Dr. Dwight Waters EO # 0.2 103/ul Normal 0.0-0.7 [facility] Comment on above: Performed By: #### C BC #### [facility] [address] [place] [address] Dr. Dwight Waters Eosinophils/100 WBC (Bld) 3.5 % Normal 0.9-7.0 [facility] Comment on above: Performed By: #### C BC #### [facility] [address] [place] [address] Dr. Dwight Waters Erythrocyte distribution width (RBC) [Ratio] 13.0 % Normal 11.0-15.0 [facility] Comment on above: Performed By: #### C BC #### [facility] [address] [place] [address] Dr. Dwight Waters Hematocrit (Bld) [Volume fraction] 50.0 % Normal 42.0-54.0 [facility] Comment on above: Performed By: #### C BC #### [facility] [address] [place] [address] Dr. Dwight Waters Hemoglobin (Bld) [Mass/Vol] 16.0 g/dL Normal 14.0-18.0 [facility] Comment on above: Performed By: #### C BC #### [facility] [address] [place] [address] Dr. Dwight Waters IG # 0.02 10e3/ul Normal 0.00-0.03 [facility] Comment on above: Performed By: #### C BC #### [facility] [address] [place] [address] Dr. Dwight Waters IG % 0.3 % Normal 0.0-0.5 [facility] Comment on above: Performed By: #### C BC #### [facility] [address] [place] [address] Dr. Dwight Waters LYMPH # 1.8 103/ul Normal 1.2-3.8 [facility] Comment on above: Performed By: #### C BC #### [facility] [address] [place] [address] Dr. Dwight Waters Lymphocytes/100 WBC (Bld) 26.5 % Normal 20.5-60.0 [facility] Comment on above: Performed By: #### C BC #### [facility] [address] [place] [address] Dr. Dwight Waters MANUAL DIFF REQ NO Normal [facility] Comment on above: Performed By: #### C BC #### [facility] [address] [place] [address] Dr. Dwight Waters MCH (RBC) [Entitic mass] 28.1 pg Normal 25.9-34.0 [facility] Comment on above: Performed By: #### C BC #### [facility] [address] [place] [address] Dr. Dwight Waters MCHC (RBC) [Mass/Vol] 32.0 g/dL Normal 29.9-35.2 [facility] Comment on above: Performed By: #### C BC #### [facility] [address] [address] [address] Dwight Waters MCV (RBC) [Entitic vol] 87.9 fL Normal 80.0-94.0 [facility] Comment on above: Performed By: #### C BC #### [facility] [address] [address] [address] Dwight Waters MONO # 0.5 103/ul Normal 0.3-0.8 [facility] Comment on above: Performed By: #### C BC #### [facility] [address] [place] [address] Dr. Dwight Waters Monocytes/100 WBC (Bld) 8.1 % Normal 1.7-12.0 [facility] Comment on above: Performed By: #### C BC #### [facility] [address] [place] [address] Dr. Dwight Waters NEUT # 4.0 103/ul Normal 1.4-6.5 [facility] Comment on above: Performed By: #### C BC #### [facility] [address] [place] [address] Dr. Dwight Waters Neutrophils/100 WBC (Bld) 60.8 % Normal 43.0-75.0 [facility] Comment on above: Performed By: #### C BC #### [facility] [address] [place] [address] Dr. Dwight Waters Platelet mean volume (Bld) [Entitic vol] 9.4 fL Critically low 9.5-13.5 [facility] Comment on above: Performed By: #### C BC #### [facility] [address] [place] [address] Dr. Dwight Waters PLT 265 103/ul Normal 150-450 [facility] Comment on above: Performed By: #### C BC #### [facility] [address] [place] [address] Dr. Dwight Waters RBC 5.69 106/ul Normal 4.70-6.10 [facility] Comment on above: Performed By: #### C BC #### [facility] [address] [place] [address] Dr. Dwight Waters WBC 6.6 103/ul Normal 4.0-11.0 The [facility] Comment on above: Performed By: #### C BC #### [facility] [address] [place] [address] Dr. Dwight Waters GGTon 09-15-2022 Gamma glutamyl transferase [Catalytic activity/Vol] 23 U/L Normal 15-85 [facility] Comment on above: Performed By: #### U RTPCR #### [facility] [address] [place] [address] Dr. Dwight Waters MAGNESIUMon 09-15-2022 Magnesium [Mass/Vol] 1.8 mg/dL Normal 1.8-2.4 [facility] Comment on above: Performed By: #### U RTPCR #### [facility] [address] [place] [address] Dr. Dwight Waters RENAL FUNCTION PANELon 09-15 Albumin [Mass/Vol] 4.1 g/dL Normal 3.4-5.0 [facility] Comment on above: Performed By: #### C BC #### [facility] [address] [place] [address] Dr. Dwight Waters Calcium [Mass/Vol] 9.3 mg/dL Normal 8.5-10.1 [facility] Comment on above: Performed By: #### C BC #### [facility] [address] [place] [address] Dr. Dwight Waters Chloride [Moles/Vol] 107 mmol/L Normal 98-107 [facility] Comment on above: Performed By: #### C BC #### [facility] [address] [place] [address] Dr. Dwight Waters CO2 [Moles/Vol] 25.6 mmol/L Normal 21.0-32.0 [facility] Comment on above: Performed By: #### C BC #### [facility] [address] [place] [address] Dr. Dwight Waters Creatinine [Mass/Vol] 1.01 mg/dL Normal 0.70-1.30 [facility] Comment on above: Performed By: #### C BC #### [facility] [address] [address] [address] Dwight Waters EGFR-AF BRITISH >60 Normal >=60 [facility] Comment on above: Performed By: #### C BC #### [facility] [address] [place] [address] Dr. Dwight Waters EGFR-NON AF BRITISH >60 Normal >=60 [facility] Comment on above: Performed By: #### C BC #### [facility] [address] [address] [address] Dwight Waters Glucose [Mass/Vol] 119 mg/dL Critically high 74-106 [facility] Comment on above: Performed By: #### C BC #### [facility] [address] [place] [address] Dr. Dwight Waters Phosphate [Mass/Vol] 2.8 mg/dL Normal 2.6-4.7 [facility] Comment on above: Performed By: #### C BC #### [facility] [address] [place] [address] Dr. Dwight Waters Potassium [Moles/Vol] 4.0 mmol/L Normal 3.5-5.1 [facility] Comment on above: Performed By: #### C BC #### [facility] [address] [place] [address] Dr. Dwight Waters Sodium [Moles/Vol] 141 mmol/L Normal 136-145 [facility] Comment on above: Performed By: #### C BC #### [facility] [address] [place] [address] Dr. Dwight Waters Urea nitrogen [Mass/Vol] 15.0 mg/dL Normal 7.0-18.0 [facility] Comment on above: Performed By: #### C BC #### [facility] [address] [place] [address] Dr. Dwight Waters SGOTon 09-15-2022 AST [Catalytic activity/Vol] 18 U/L Normal 15-37 [facility] Comment on above: Performed By: #### U RTPCR #### [facility] [address] [place] [address] Dr. Dwight Waters SGPTon 09-15-2022 ALT [Catalytic activity/Vol] 32 U/L Normal 16-63 [facility] Comment on above: Performed By: #### C BC #### [facility] [address] [place] [address] Dr. Dwight Waters URINE T PROTEIN CREAT RATIOo n 09-15-2022 Protein (U) [Mass/Vol] 14.1 mg/dL Critically high <=12.0 [facility] Comment on above: Performed By: #### U RTPCR #### [facility] [address] [place] [address] Dr. Dwight Waters UR PROT CREAT RAT 0.14 Normal [facility] Comment on above: Performed By: #### U RTPCR #### [facility] [address] [place] [address] Dr. Dwight Waters URINE CREAT 98.89 mg/dL Normal 20.00-300.00 [facility] Comment on above: Performed By: #### U RTPCR #### [facility] [address] [place] [address] Dr. Dwight Waters US CAROTID ART BILon [...] MÓNICA JIMENEZ Date: 2022-08-28 13:20 Normal [facility] FK506 (TACROLIMUS) WHOLE BLO ODon 08-17-2022 Tacrolimus (FK506), Blood 9.9 ng/mL Normal 2.0-20.0 [facility] Comment on above: Result Comment: Trou gh (immediately following transplant) 15.0 . Trough (steady state, 2 weeks or more after transplant): 3.0 - 8.0 . Performed by LC-MS/MS technology. Performed By: #### F [id number] #### [facility] [address] [place] [address] Dr. Dwight Waetrs BK VIRUS PCR QUANTon 022 BKV DNA QUANT PCR PLASMA Negative Normal Negative [facility] Comment on above: Result Comment: No B K DNA detected. . The linear range of the assay is 22 - 100,000,000 IU/mL. Performed By: #### U RTPCR #### [facility] [address] [place] [address] Dr. Dwight Waters Log10 BKV DNA Plasma Normal [facility] Comment on above: Performed By: #### U RTPCR #### [facility] [address] [place] [address] Dr. Dwight Waters ALBUMINon 08-14-2022 Albumin [Mass/Vol] 4.2 g/dL Normal 3.4-5.0 [facility] Comment on above: Performed By: #### F [id number] #### [facility] [address] [place] [address] Dr. Dwight Waters ALKALINE PHOSPHAon ALP [Catalytic activity/Vol] 92 U/L Normal 46-116 [facility] Comment on above: Performed By: #### C BC #### [facility] [address] [place] [address] Dr. Dwight Waters BILIRUBIN CONJUGATED (DIRECT )on 08-14-2022 BILI, CONJUGATED 0.3 mg/dL Critically high 0.0-0.2 [facility] Comment on above: Performed By: #### F [id number] #### [facility] [address] [place] [address] Dr. Dwight Waters BILIRUBIN TOTALon 08-14-2022 Bilirubin [Mass/Vol] 1.5 mg/dL Critically high 0.2-1.0 [facility] Comment on above: Performed By: #### F [id number] #### [facility] [address] [place] [address] Dr. Dwight Waters BUNon 08-14-2022 Urea nitrogen [Mass/Vol] 11.0 mg/dL Normal 7.0-18.0 [facility] Comment on above: Performed By: #### C BC #### [facility] [address] [place] [address] Dr. Dwight Waters CALCIUMon 08-14-2022 Calcium [Mass/Vol] 9.4 mg/dL Normal 8.5-10.1 [facility] Comment on above: Performed By: #### F [id number] #### [facility] [address] [place] [address] Dr. Dwight Waters CBC AUTO DIFFon 08-14-2022 BASO # 0.0 103/ul Normal 0.0-0.1 [facility] Comment on above: Performed By: #### C MP #### [facility] [address] [place] [address] Dr. Dwight Waters Basophils/100 WBC (Bld) 0.5 % Normal 0.2-2.0 [facility] Comment on above: Performed By: #### C MP #### [facility] [address] [place] [address] Dr. Dwight Waters EO # 0.2 103/ul Normal 0.0-0.7 [facility] Comment on above: Performed By: #### C MP #### [facility] [address] [place] [address] Dr. Dwight Waters Eosinophils/100 WBC (Bld) 2.6 % Normal 0.9-7.0 [facility] Comment on above: Performed By: #### C MP #### [facility] [address] [place] [address] Dr. Dwight Waters Erythrocyte distribution width (RBC) [Ratio] 13.1 % Normal 11.0-15.0 [facility] Comment on above: Performed By: #### C MP #### [facility] [address] [place] [address] Dr. Dwight Waters Hematocrit (Bld) [Volume fraction] 47.0 % Normal 42.0-54.0 [facility] Comment on above: Performed By: #### C MP #### [facility] [address] [place] [address] Dr. Dwight Waters Hemoglobin (Bld) [Mass/Vol] 15.3 g/dL Normal 14.0-18.0 [facility] Comment on above: Performed By: #### C MP #### [facility] [address] [place] [address] Dr. Dwight Waters IG # 0.01 10e3/ul Normal 0.00-0.03 [facility] Comment on above: Performed By: #### C MP #### [facility] [address] [place] [address] Dr. Dwight Waters IG % 0.1 % Normal 0.0-0.5 [facility] Comment on above: Performed By: #### C MP #### [facility] [address] [place] [address] Dr. Dwight Waters LYMPH # 2.3 103/ul Normal 1.2-3.8 [facility] Comment on above: Performed By: #### C MP #### [facility] [address] [place] [address] Dr. Dwight Waters Lymphocytes/100 WBC (Bld) 29.8 % Normal 20.5-60.0 [facility] Comment on above: Performed By: #### C MP #### [facility] [address] [place] [address] Dr. Dwight Waters MANUAL DIFF REQ NO Normal [facility] Comment on above: Performed By: #### C MP #### [facility] [address] [place] [address] Dr. Dwight Waters MCH (RBC) [Entitic mass] 28.2 pg Normal 25.9-34.0 [facility] Comment on above: Performed By: #### C MP #### [facility] [address] [place] [address] Dr. Dwight Waters MCHC (RBC) [Mass/Vol] 32.6 g/dL Normal 29.9-35.2 [facility] Comment on above: Performed By: #### C MP #### [facility] [address] [place] [address] Dr. Dwight Waters MCV (RBC) [Entitic vol] 86.7 fL Normal 80.0-94.0 [facility] Comment on above: Performed By: #### C MP #### [facility] [address] [address] [address] Dwight Waters MONO # 0.7 103/ul Normal 0.3-0.8 [facility] Comment on above: Performed By: #### C MP #### [facility] [address] [address] [address] Dwight Waters Monocytes/100 WBC (Bld) 8.5 % Normal 1.7-12.0 [facility] Comment on above: Performed By: #### C MP #### [facility] [address] [address] [address] Dwight Waters NEUT # 4.5 103/ul Normal 1.4-6.5 [facility] Comment on above: Performed By: #### C MP #### [facility] [address] [place] [address] Dr. Diwght Waters Neutrophils/100 WBC (Bld) 58.5 % Normal 43.0-75.0 [facility] Comment on above: Performed By: #### C MP #### [facility] [address] [place] [address] Dr. Dwight Waters Platelet mean volume (Bld) [Entitic vol] 9.7 fL Normal 9.5-13.5 [facility] Comment on above: Performed By: #### C MP #### [facility] [address] [address] [address] Dwight Waters PLT 266 103/ul Normal 150-450 [facility] Comment on above: Performed By: #### C MP #### [facility] [address] [address] [address] Dwight Waters RBC 5.42 106/ul Normal 4.70-6.10 [facility] Comment on above: Performed By: #### C MP #### [facility] [address] [address] [address] Dwight Waters WBC 7.6 103/ul Normal 4.0-11.0 [facility] Comment on above: Performed By: #### C MP #### [facility] [address] [address] [address] Dwight Waters CHLORIDEon 08-14-2022 Chloride [Moles/Vol] 104 mmol/L Normal 98-107 [facility] Comment on above: Performed By: #### C BC #### [facility] [address] [place] [address] Dr. Dwight Waters CO2on 08-14-2022 CO2 [Moles/Vol] 27.9 mmol/L Normal 21.0-32.0 [facility] Comment on above: Performed By: #### C BC #### [facility] [address] [place] [address] Dr. Dwight Waters CREATININEon 08-14-2022 Creatinine [Mass/Vol] 1.08 mg/dL Normal 0.70-1.30 [facility] Comment on above: Performed By: #### C BC #### [facility] [address] [place] [address] Dr. Dwight Waters EGFR-AF BRITISH >60 Normal >=60 [facility] Comment on above: Performed By: #### C BC #### [facility] [address] [place] [address] Dr. Dwight Waters EGFR-NON AF BRITISH >60 Normal >=60 [facility] Comment on above: Performed By: #### C BC #### [facility] [address] [place] [address] Dr. Dwight Waters GGTon 08-14-2022 Gamma glutamyl transferase [Catalytic activity/Vol] 24 U/L Normal 15-85 [facility] Comment on above: Performed By: #### F [id number] #### [facility] [address] [place] [address] Dr. Dwight Waters GLUCOSE BLOODon 08-14-2022 Glucose [Mass/Vol] 111 mg/dL Critically high 74-106 [facility] Comment on above: Performed By: #### C BC #### [facility] [address] [place] [address] Dr. Dwight Waters MAGNESIUMon 08-14-2022 Magnesium [Mass/Vol] 1.4 mg/dL Critically low 1.8-2.4 [facility] Comment on above: Performed By: #### C BC #### [facility] [address] [place] [address] Dr. Dwight Waters NAon 08-14-2022 Sodium [Moles/Vol] 140 mmol/L Normal 136-145 [facility] Comment on above: Performed By: #### F [id number] #### [facility] [address] [place] [address] Dr. Dwight Waters PHOSPHORUSon 08-14-2022 Phosphate [Mass/Vol] 3.1 mg/dL Normal 2.6-4.7 [facility] Comment on above: Performed By: #### C BC #### [facility] [address] [place] [address] Dr. Dwight Waters POTASSIUMon 08-14-2022 Potassium [Moles/Vol] 3.5 mmol/L Normal 3.5-5.1 [facility] Comment on above: Performed By: #### C BC #### [facility] [address] [place] [address] Dr. Dwight OLVERAOToamanda 08-14-2022 AST [Catalytic activity/Vol] 17 U/L Normal 15-37 [facility] Comment on above: Performed By: #### F [id number] #### [facility] [address] [place] [address] Dr. Dwight Waters SGPTon 08-14-2022 ALT [Catalytic activity/Vol] 22 U/L Normal 16-63 [facility] Comment on above: Performed By: #### F [id number] #### [facility] [address] [place] [address] Dr. Dwight Waters URINE T PROTEIN CREAT RATIOo n 08-14-2022 Protein (U) [Mass/Vol] 10.7 mg/dL Normal <=12.0 [facility] Comment on above: Performed By: #### F [id number] #### [facility] [address] [place] [address] Dr. Dwight Waters UR PROT CREAT RAT 0.10 Normal [facility] Comment on above: Performed By: #### F [id number] #### [facility] [address] [place], [place] [address] Dr. Dwight Waters URINE CREAT 104.28 mg/dL Normal 20.00-300.00 [facility] Comment on above: Performed By: #### F [id number] #### [facility] [address] [place], [place] [address] Dr. Dwight Waters NEPHROSTOMY TUBE REMOVALon 0 [...] Assisting physician present for entire procedure: yes [facility] Radiology Study observation (narrative) [facility] FK506 (TACROLIMUS) WHOLE BLO ODon 07-06-2022 Tacrolimus (FK506), Blood 9.5 ng/mL Normal 2.0-20.0 [facility] Comment on above: Result Comment: Trou gh (immediately following transplant) 15.0 . Trough (steady state, 2 weeks or more after transplant): 3.0 - 8.0 . Performed by LC-MS/MS technology. Performed By: #### C MP #### [facility] [address] [place] [address] Dr. Dwight Waters ALBUMINon 07-03-2022 Albumin [Mass/Vol] 3.7 g/dL Normal 3.4-5.0 [facility] Comment on above: Performed By: #### U RTPCR #### [facility] [address] [place] [address] Dr. Dwight Waters ALKALINE PHOSPHAon ALP [Catalytic activity/Vol] 76 U/L Normal 46-116 [facility] Comment on above: Performed By: #### U RTPCR #### [facility] [address] [place] [address] Dr. Dwight Waters BILIRUBIN CONJUGATED (DIRECT )on 07-03-2022 BILI, CONJUGATED 0.3 mg/dL Critically high 0.0-0.2 [facility] Comment on above: Performed By: #### C BC #### [facility] [address] [place] [address] Dr. Dwight Waters BILIRUBIN TOTALon 07-03-2022 Bilirubin [Mass/Vol] 1.4 mg/dL Critically high 0.2-1.0 [facility] Comment on above: Performed By: #### C BC #### [facility] [address] [place] [address] Dr. Dwight Waters BUNon 07-03-2022 Urea nitrogen [Mass/Vol] 15.0 mg/dL Normal 7.0-18.0 [facility] Comment on above: Performed By: #### C BC #### [facility] [address] [place] [address] Dr. Dwight Waters CALCIUMon 07-03-2022 Calcium [Mass/Vol] 9.4 mg/dL Normal 8.5-10.1 [facility] Comment on above: Performed By: #### U RTPCR #### [facility] [address] [place] [address] Dr. Dwight Waters CBC AUTO DIFFon 07-03-2022 BASO # 0.0 103/ul Normal 0.0-0.1 [facility] Comment on above: Performed By: #### U RTPCR #### [facility] [address] [address] [address] Dwight Waters Basophils/100 WBC (Bld) 0.6 % Normal 0.2-2.0 [facility] Comment on above: Performed By: #### U RTPCR #### [facility] [address] [address] [address] Dwight Waters EO # 0.2 103/ul Normal 0.0-0.7 [facility] Comment on above: Performed By: #### U RTPCR #### [facility] [address] [address] [address] Dwight Waters Eosinophils/100 WBC (Bld) 3.5 % Normal 0.9-7.0 [facility] Comment on above: Performed By: #### U RTPCR #### [facility] [address] [place] [address] Dr. Dwight Waters Erythrocyte distribution width (RBC) [Ratio] 12.9 % Normal 11.0-15.0 [facility] Comment on above: Performed By: #### U RTPCR #### [facility] [address] [place] [address] Dr. Dwight Waters Hematocrit (Bld) [Volume fraction] 44.2 % Normal 42.0-54.0 [facility] Comment on above: Performed By: #### U RTPCR #### [facility] [address] [place] [address] Dr. Dwight Waters Hemoglobin (Bld) [Mass/Vol] 14.6 g/dL Normal 14.0-18.0 [facility] Comment on above: Performed By: #### U RTPCR #### [facility] [address] [place] [address] Dr. Dwight Waters IG # 0.02 10e3/ul Normal 0.00-0.03 [facility] Comment on above: Performed By: #### U RTPCR #### [facility] [address] [address] [address] Dwight Waters IG % 0.3 % Normal 0.0-0.5 [facility] Comment on above: Performed By: #### U RTPCR #### [facility] [address] [address] [address] Dwight Waters LYMPH # 2.0 103/ul Normal 1.2-3.8 [facility] Comment on above: Performed By: #### U RTPCR #### [facility] [address] [place] [address] Dr. Dwight Waters Lymphocytes/100 WBC (Bld) 28.4 % Normal 20.5-60.0 [facility] Comment on above: Performed By: #### U RTPCR #### [facility] [address] [place] [address] Dr. Dwight Watesr MANUAL DIFF REQ NO Normal [facility] Comment on above: Performed By: #### U RTPCR #### [facility] [address] [place] [address] Dr. Dwight Waters MCH (RBC) [Entitic mass] 28.6 pg Normal 25.9-34.0 [facility] Comment on above: Performed By: #### U RTPCR #### [facility] [address] [place] [address] Dr. Dwight Waters MCHC (RBC) [Mass/Vol] 33.0 g/dL Normal 29.9-35.2 [facility] Comment on above: Performed By: #### U RTPCR #### [facility] [address] [place] [address] Dr. Dwight Waters MCV (RBC) [Entitic vol] 86.7 fL Normal 80.0-94.0 [facility] Comment on above: Performed By: #### U RTPCR #### [facility] [address] [place] [address] Dr. Dwight Waters MONO # 0.6 103/ul Normal 0.3-0.8 [facility] Comment on above: Performed By: #### U RTPCR #### [facility] [address] [place] [address] Dr. Dwight Waters Monocytes/100 WBC (Bld) 9.1 % Normal 1.7-12.0 [facility] Comment on above: Performed By: #### U RTPCR #### [facility] [address] [address] [address] Dwight Waters NEUT # 4.0 103/ul Normal 1.4-6.5 [facility] Comment on above: Performed By: #### U RTPCR #### [facility] [address] [address] [address] Dwight Waters Neutrophils/100 WBC (Bld) 58.1 % Normal 43.0-75.0 [facility] Comment on above: Performed By: #### U RTPCR #### [facility] [address] [address] [address] Dwight Waters Platelet mean volume (Bld) [Entitic vol] 9.5 fL Normal 9.5-13.5 [facility] Comment on above: Performed By: #### U RTPCR #### [facility] [address] [place] [address] Dr. Dwight Waters PLT 292 103/ul Normal 150-450 [facility] Comment on above: Performed By: #### U RTPCR #### [facility] [address] [address] [address] Dwight Waters RBC 5.10 106/ul Normal 4.70-6.10 [facility] Comment on above: Performed By: #### U RTPCR #### [facility] [address] [place] [address] Dr. Dwight Waters WBC 6.9 103/ul Normal 4.0-11.0 [facility] Comment on above: Performed By: #### U RTPCR #### [facility] [address] [place] [address] Dr. Dwight Waters CHLORIDEon 07-03-2022 Chloride [Moles/Vol] 108 mmol/L Critically high 98-107 [facility] Comment on above: Performed By: #### C BC #### [facility] [address] [place] [address] Dr. Dwight Waters CO2on 07-03-2022 CO2 [Moles/Vol] 25.2 mmol/L Normal 21.0-32.0 [facility] Comment on above: Performed By: #### C BC #### [facility] [address] [place] [address] Dr. Dwight Waters CREATININEon 07-03-2022 Creatinine [Mass/Vol] 1.03 mg/dL Normal 0.70-1.30 [facility] Comment on above: Performed By: #### U RTPCR #### [facility] [address] [place] [address] Dr. Dwight Waters EGFR-AF BRITISH >60 Normal >=60 [facility] [facility] Comment on above: Performed By: #### U RTPCR #### [facility] [address] [place] [address] Dr. Dwight Waters EGFR-NON AF BRITISH >60 Normal >=60 [facility] Comment on above: Performed By: #### U RTPCR #### [facility] [address] [place] [address] Dr. Dwight Waters GGTon 07-03-2022 Gamma glutamyl transferase [Catalytic activity/Vol] 31 U/L Normal 15-85 [facility] Comment on above: Performed By: #### U RTPCR #### [facility] [address] [place] [address] Dr. Dwight Waters GLUCOSE BLOODon 07-03-2022 Glucose [Mass/Vol] 119 mg/dL Critically high 74-106 [facility] Comment on above: Performed By: #### U RTPCR #### [facility] [address] [place] [address] Dr. Dwight Waters MAGNESIUMon 07-03-2022 Magnesium [Mass/Vol] 1.4 mg/dL Critically low 1.8-2.4 [facility] Comment on above: Performed By: #### C BC #### [facility] [address] [place] [address] Dr. Dwight Waters NAon 07-03-2022 Sodium [Moles/Vol] 142 mmol/L Normal 136-145 [facility] Comment on above: Performed By: #### C MP #### [facility] [address] [place] [address] Dr. Dwight Waters PHOSPHORUSon 07-03-2022 Phosphate [Mass/Vol] 3.4 mg/dL Normal 2.6-4.7 [facility] Comment on above: Performed By: #### C BC #### [facility] [address] [place] [address] Dr. Dwight Waters POTASSIUMon 07-03-2022 Potassium [Moles/Vol] 4.1 mmol/L Normal 3.5-5.1 [facility] Comment on above: Performed By: #### C BC #### [facility] [address] [place] [address] Dr. Dwight Waters SGOTon 07-03-2022 AST [Catalytic activity/Vol] 14 U/L Critically low 15-37 [facility] Comment on above: Performed By: #### C BC #### [facility] [address] [place] [address] Dr. Dwight Waters SGPTon 07-03-2022 ALT [Catalytic activity/Vol] 25 U/L Normal 16-63 [facility] Comment on above: Performed By: #### C BC #### [facility] [address] [place] [address] Dr. Dwight Waters US KIDNEYSon 07-03-2022 US KIDNEYS Ultrasound kidneys, bilateral HISTORY: Transplant of kidney , pain in the right lower quadrant COMPARISON: None. TECHNIQUE: Transabdominal ultrasound imaging of both kidneys was performed. FINDINGS: The [place] kidneys are diffusely echogenic and atrophic with cortical thinning. The right kidney measures 8.3 x 3.5 x 4.07 m and the left measures 9.9 x 3.8 x 3.6 cm. No hydronephrosis of the [place] kidneys. There is a renal transplant in [...] stone involving the renal transplant. 2. Atrophic [place] kidneys. 3. Normal bladder. Electronically authenticated by: ARCELIA PIZARRO Date: 2022-07-03 17:22 Normal [facility] CT Abdomen and Pelvis WO geoff sosa 06-27-2022 IMPRESSION: 1. Both [place] kidneys are atrophic with improvement in right-sided [...] Adrenals: Adrenal glands are unremarkable. Kidneys: Both [place] kidneys are atrophic. Interval improvement in right [place] kidney hydronephrosis since May 15, 2022. Status [...] Adrenals: Adrenal glands are unremarkable. Kidneys: Both [place] kidneys are atrophic. Interval improvement in right [place] kidney hydronephrosis since May 15, 2022. Status [...] aggressive osseous lesions. IMPRESSION IMPRESSION: 1. Both [place] kidneys are atrophic with improvement in right-sided hydronephrosis since May 15, 2022. 2. 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 No hydronephrosis. No discrete perinephric collection. 3. Partially imaged postsurgical changes related to prior liver transplant. 4. The bladder is decompressed, limiting evaluation. [facility] con trastOrdered By: Gera Lu on 06-27-2022 [facility] Work Phone: CBC AUTO DIFFon 06-18-2022 BASO # 0.0 103/ul Normal 0.0-0.1 [facility] Comment on above: Performed By: #### U RTPCR #### [facility] [address] [place] [address] Dr. Dwight Waters Basophils/100 WBC (Bld) 0.5 % Normal 0.2-2.0 [facility] Comment on above: Performed By: #### U RTPCR #### [facility] [address] [place] [address] Dr. Dwight Waters EO # 0.2 103/ul Normal 0.0-0.7 [facility] Comment on above: Performed By: #### U RTPCR #### [facility] [address] [place] [address] Dr. Dwight Waters Eosinophils/100 WBC (Bld) 2.3 % Normal 0.9-7.0 [facility] Comment on above: Performed By: #### U RTPCR #### [facility] [address] [place] [address] Dr. Dwight Waters Erythrocyte distribution width (RBC) [Ratio] 12.9 % Normal 11.0-15.0 [facility] Comment on above: Performed By: #### U RTPCR #### [facility] [address] [place] [address] Dr. Dwight Waters Hematocrit (Bld) [Volume fraction] 41.2 % Critically low 42.0-54.0 [facility] Comment on above: Performed By: #### U RTPCR #### [facility] [address] [place] [address] Dr. Dwight Waters Hemoglobin (Bld) [Mass/Vol] 13.3 g/dL Critically low 14.0-18.0 [facility] Comment on above: Performed By: #### U RTPCR #### [facility] [address] [place] [address] Dr. Dwight Waters IG # 0.04 10e3/ul Critically high 0.00-0.03 [facility] Comment on above: Performed By: #### U RTPCR #### [facility] [address] [place] [address] Dr. Dwight Waters IG % 0.5 % Normal 0.0-0.5 [facility] Comment on above: Performed By: #### U RTPCR #### [facility] [address] [place] [address] Dr. Dwight Waters LYMPH # 2.0 103/ul Normal 1.2-3.8 [facility] Comment on above: Performed By: #### U RTPCR #### [facility] [address] [place] [address] Dr. Dwight Waters Lymphocytes/100 WBC (Bld) 22.9 % Normal 20.5-60.0 [facility] Comment on above: Performed By: #### U RTPCR #### [facility] [address] [place] [address] Dr. Dwight Waters MANUAL DIFF REQ NO Normal [facility] Comment on above: Performed By: #### U RTPCR #### [facility] [address] [place] [address] Dr. Dwight Waters MCH (RBC) [Entitic mass] 28.7 pg Normal 25.9-34.0 [facility] Comment on above: Performed By: #### U RTPCR #### [facility] [address] [place] [address] Dr. Dwight Waters MCHC (RBC) [Mass/Vol] 32.3 g/dL Normal 29.9-35.2 [facility] Comment on above: Performed By: #### U RTPCR #### [facility] [address] [place] [address] Dr. Dwight Waters MCV (RBC) [Entitic vol] 88.8 fL Normal 80.0-94.0 [facility] Comment on above: Performed By: #### U RTPCR #### [facility] [address] [place] [address] Dr. Dwight Waters MONO # 0.8 103/ul Normal 0.3-0.8 [facility] Comment on above: Performed By: #### U RTPCR #### [facility] [address] [place] [address] Dr. Dwight Waters Monocytes/100 WBC (Bld) 9.7 % Normal 1.7-12.0 [facility] Comment on above: Performed By: #### U RTPCR #### [facility] [address] [place] [address] Dr. Dwight Waters NEUT # 5.6 103/ul Normal 1.4-6.5 [facility] Comment on above: Performed By: #### U RTPCR #### [facility] [address] [place] [address] Dr. Dwight Waters Neutrophils/100 WBC (Bld) 64.1 % Normal 43.0-75.0 [facility] Comment on above: Performed By: #### U RTPCR #### [facility] [address] [place] [address] Dr. Dwight Waters Platelet mean volume (Bld) [Entitic vol] 10.0 fL Normal 9.5-13.5 [facility] Comment on above: Performed By: #### U RTPCR #### [facility] [address] [place] [address] Dr. Dwight Waters PLT 270 103/ul Normal 150-450 [facility] Comment on above: Performed By: #### U RTPCR #### [facility] [address] [place] [address] Dr. Dwight Waters RBC 4.64 106/ul Critically low 4.70-6.10 [facility] Comment on above: Performed By: #### U RTPCR #### [facility] [address] [place] [address] Dr. Dwight Waters WBC 8.7 103/ul Normal 4.0-11.0 [facility] Comment on above: Performed By: #### U RTPCR #### [facility] [address] [place] [address] Dr. Dwight Waters CULTURE URINEon 06-18-2022 CULTURE URINE Culture Observations : NO GROWTH. Normal [facility] Comment on above: Performed By: #### U RTPCR #### [facility] [address] [place] [address] Dr. Dwight Waters Covid-19 PCR ([facility])on 05-31 SARS-CoV-2 (COVID-19) RNA ESTELITA+probe Ql (Unsp spec) Not detected Normal NOT DETECTED [facility] Comment on above: Result Comment: When [...] for this test is supported by the [place] of Health and Human Service's declaration that [...] used). Performed By: #### C BC #### [facility] [address] [place] [address] Dr. Dwight Waters ER URINE PROFILEon Bilirubin Ql (U) Negative Normal NEGATIVE [facility] Comment on above: Performed By: #### U RTPCR #### [facility] [address] [place] [address] Dr. Dwight Waters Clarity (U) CLEAR Normal CLEAR [facility] Comment on above: Performed By: #### U RTPCR #### [facility] [address] [place] [address] Dr. Dwight Waters Color (U) YELLOW Normal YELLOW [facility] Comment on above: Performed By: #### U RTPCR #### [facility] [address] [place] [address] Dr. Dwight SHARMA A micrscopic examina tion will be performed if indicated. Normal [facility] Comment on above: Performed By: #### U RTPCR #### [facility] [address] [place] [address] Dr. Dwight Waters Glucose Ql (U) Negative Normal NEGATIVE [facility] Comment on above: Performed By: #### U RTPCR #### [facility] [address] [place] [address] Dr. Dwight Waters Hemoglobin Ql (U) LARGE Abnormal NEGATIVE [facility] Comment on above: Performed By: #### U RTPCR #### [facility] [address] [place] [address] Dr. Dwight Waters Ketones Ql (U) Negative Normal NEGATIVE [facility] Comment on above: Performed By: #### U RTPCR #### [facility] [address] [place] [address] Dr. Dwight Waters LEUKOCYTES TRACE Abnormal NEGATIVE [facility] Comment on above: Performed By: #### U RTPCR #### [facility] [address] [place] [address] Dr. Dwight Waters Nitrite Ql (U) Negative Normal NEGATIVE [facility] Comment on above: Performed By: #### U RTPCR #### [facility] [address] [place] [address] Dr. Dwight Waters pH (U) 6.0 [pH] Normal 5-9 [facility] Comment on above: Performed By: #### U RTPCR #### [facility] [address] [place] [address] Dr. Dwight Waters Protein (U) [Mass/Vol] 30 mg/dL Abnormal NEGATIVE/ TRACE [facility] Comment on above: Performed By: #### U RTPCR #### [facility] [address] [place] [address] Dr. Dwight Waters SPEC GRAVITY >=1.030 Abnormal 1.005-<=1.02 5 [facility] Comment on above: Performed By: #### U RTPCR #### [facility] [address] [place] [address] Dr. Dwight Waters UR MICRO IND INDICATED Normal [facility] Comment on above: Performed By: #### U RTPCR #### [facility] [address] [place] [address] Dr. Dwight Waters Urobilinogen Qn (U) 0.2 {Alyssa'U}/dL Normal 0.2 - 1. 0 [facility] Comment on above: Performed By: #### U RTPCR #### [facility] [address] [place] [address] Dr. Dwight Waters PROF 14(COMP METB)on 022 Albumin [Mass/Vol] 3.7 g/dL Normal 3.4-5.0 [facility] Comment on above: Performed By: #### C MP #### [facility] [address] [place] [address] Dr. Dwight Waters Albumin/Globulin [Mass ratio] 0.9 {ratio} Normal [facility] Comment on above: Performed By: #### C MP #### [facility] [address] [place] [address] Dr. Dwight Waters ALP [Catalytic activity/Vol] 80 U/L Normal 46-116 [facility] Comment on above: Performed By: #### C MP #### [facility] [address] [place] [address] Dr. Dwight Waters ALT [Catalytic activity/Vol] 24 U/L Normal 16-63 [facility] Comment on above: Performed By: #### C MP #### [facility] [address] [place] [address] Dr. Dwight Waters Anion gap [Moles/Vol] 12.9 mmol/L Normal [facility] Comment on above: Performed By: #### C MP #### [facility] [address] [place] [address] Dr. Dwight Waters AST [Catalytic activity/Vol] 17 U/L Normal 15-37 [facility] Comment on above: Performed By: #### C MP #### [facility] [address] [address] [address] Dwight Waters Bilirubin [Mass/Vol] 0.8 mg/dL Normal 0.2-1.0 [facility] Comment on above: Performed By: #### C MP #### [facility] [address] [address] [address] Dwight Waters Calcium [Mass/Vol] 9.4 mg/dL Normal 8.5-10.1 [facility] Comment on above: Performed By: #### C MP #### [facility] [address] [address] [address] Dwight Waters Chloride [Moles/Vol] 106 mmol/L Normal 98-107 [facility] Comment on above: Performed By: #### C MP #### [facility] [address] [place] [address] Dr. Dwight Waters CO2 [Moles/Vol] 25.3 mmol/L Normal 21.0-32.0 [facility] Comment on above: Performed By: #### C MP #### [facility] [address] [address] [address] Dwight Waters Creatinine [Mass/Vol] 1.29 mg/dL Normal 0.70-1.30 [facility] Comment on above: Performed By: #### C MP #### [facility] [address] [place] [address] Dr. Dwight Waters EGFR-AF BRITISH >60 Normal >=60 [facility] Comment on above: Performed By: #### C MP #### [facility] [address] [address] [address] Dwight Waters EGFR-NON AF BRITISH 59 mL/min/1.73m2 Critically low >=60 [facility] Comment on above: Performed By: #### C MP #### [facility] [address] [address] [address] Dwight Waters Globulin (S) [Mass/Vol] 4.2 g/dL Normal [facility] Comment on above: Performed By: #### C MP #### [facility] [address] [address] [address] Dwight Waters Glucose [Mass/Vol] 106 mg/dL Normal 74-106 [facility] Comment on above: Performed By: #### C MP #### [facility] [address] [address] [address] Dwight Waters Potassium [Moles/Vol] 4.2 mmol/L Normal 3.5-5.1 [facility] Comment on above: Performed By: #### C MP #### [facility] [address] [place] [address] Dr. Dwight Waters Protein [Mass/Vol] 7.9 g/dL Normal 6.4-8.2 [facility] Comment on above: Performed By: #### C MP #### [facility] [address] [place] [address] Dr. Dwight Waters Sodium [Moles/Vol] 140 mmol/L Normal 136-145 [facility] Comment on above: Performed By: #### C MP #### [facility] [address] [place] [address] Dr. Dwight Waters Urea nitrogen [Mass/Vol] 22.0 mg/dL Critically high 7.0-18.0 [facility] Comment on above: Performed By: #### C MP #### [facility] [address] [place] [address] Dr. Dwight Waters Urea nitrogen/Creatinine [Mass ratio] 17.1 mg/mg Normal [facility] Comment on above: Performed By: #### C MP #### [facility] [address] [place] [address] Dr. Dwight Waters URINE MICROSCOPIC ONLYon BACTERIA TRACE Abnormal NONE SEEN [facility] Comment on above: Performed By: #### U RTPCR #### [facility] [address] [place] [address] Dr. Dwight Waters Bacteria identified Cx Nom (U) INDICATED Normal [facility] Comment on above: Performed By: #### U RTPCR #### [facility] [address] [place] [address] Dr. Dwight Waters CAST NONE SEEN Normal NONE SEEN [facility] Comment on above: Performed By: #### U RTPCR #### [facility] [address] [place] [address] Dr. Dwight Waters Crystals LM Nom (Urine sed) NONE SEEN Normal NONE SEEN [facility] Comment on above: Performed By: #### U RTPCR #### [facility] [address] [place] [address] Dr. Dwight Waters Epithelial cells LM Ql (Urine sed) NONE SEEN Normal NONE SEEN /RARE [facility] Comment on above: Performed By: #### U RTPCR #### [facility] [address] [place] [address] Dr. Dwight Waters MUCOUS NONE SEEN Normal NONE SEEN [facility] Comment on above: Performed By: #### U RTPCR #### [facility] [address] [place] [address] Dr. Dwight Waters RBC 5-10 Abnormal 0-2 [facility] Comment on above: Performed By: #### U RTPCR #### [facility] [address] [place] [address] Dr. Dwight Waters WBC 10-20 Abnormal NONE SEEN [facility] Comment on above: Performed By: #### U RTPCR #### [facility] [address] [place] [address] Dr. Dwight Waters ALLOSCREEN RECIPIENT (POST T [...] need for FDA approval.Testing performed by the [facility] Clinical Histocompatibility Laboratory. [facility] number: [id number]. CLIA number: [id number], Director: Carlito Merchant, PhD, D([facility]). ANTIBODY SPECIFICITY INTERPRETATION Detected [facility] CLASS I SPECIFICITIES Not detected [facility] CLASS II SPECIFICITIES Not detected [facility] HLA Ab (S) 0 % 0 [facility] EXTRA MICROon 06-13-2022 [facility] URINE [...] Private Hospital RBC (Bld) [#/Vol] 4.85 10*6/uL [facility] WBC (Bld) [#/Vol] 7.68 10*3/uL 3.73 - 10. 10 K/uL [facility] CHEM 7 (LYTES,BUN,CREA,GLUC) on 06-12-2022 [...] (S/P/Bld) [Vol rate/Area] 69 >=60 mL/min/1.73m 2 [facility] Comment on above: Reported [...] - 64 U/L [facility] HEMOGLOBIN [id number] By: Link [employer] on 06-12-2022 Average glucose Estimated from glycated hemoglobin (Bld) [Mass/Vol] 126 mg/dL [facility] HbA1c (Bld) [Mass fraction] 6.0 % High 4.7 - 5.6 % [facility] Interpretation and review of laboratory results Abnormal [facility] HEPATIC FUNCTION PANELon Albumin [Mass/Vol] [...] Interpretation and review of laboratory results Normal [facility] PTH INTACTOrdered By: Marli Lizarraga on 06-12-2022 Interpretation and review of laboratory results Abnormal [facility] Parathyrin.intact [Mass/Vol] 79.7 pg/mL High 14.0 - 72.0 pg/mL [facility] URINALYSIS REFLEX TO CULTURE PERFORMABLEon [...] Hospital RBC (U) [#/Vol] Trace Abnormal Negative [facility] RBC LM.HPF (Urine sed) [#/Area] 0-2 0 - 2 /HPF [facility] Specific gravity (U) [Rel density] 1.026 [facility] Urobilinogen (U) [Mass/Vol] 0.2 E.U./dL 0.2 E.U/dL, 1.0 E.U/dL [facility] WBC LM.HPF (Urine sed) [#/Area] 10-20 Abnormal 0 - 5 /[facility]/CREA RATIO, RA NDOMon 06-12-2022 Creatinine (24H U) [Mass/Vol] 231.68 mg/dL [facility] Protein Unsp time (U) [Mass/Vol] 49 mg/dL [facility] Protein/Creatinine (U) [Mass ratio] 0.211 mg/g [facility] FK506 (TACROLIMUS) WHOLE BLO ODon 06-09-2022 Tacrolimus (FK506), Blood 9.8 ng/mL Normal 2.0-20.0 [facility] Comment on above: Result Comment: Trou gh (immediately following transplant) 15.0 . Trough (steady state, 2 weeks or more after transplant): 3.0 - 8.0 . Performed by LC-MS/MS technology. Performed By: #### U RTPCR #### [facility] [address] [place] [address] Dr. Dwight Waters ALBUMINon 06-06-2022 Albumin [Mass/Vol] 3.8 g/dL Normal 3.4-5.0 [facility] Comment on above: Performed By: #### C MP #### [facility] [address] [place] [address] Dr. Dwight Waters ALKALINE PHOSPHAon ALP [Catalytic activity/Vol] 82 U/L Normal 46-116 [facility] Comment on above: Performed By: #### C MP #### [facility] [address] [place] [address] Dr. Dwight Waters BILIRUBIN CONJUGATED (DIRECT )on 06-06-2022 BILI, CONJUGATED 0.2 mg/dL Normal 0.0-0.2 [facility] Comment on above: Performed By: #### C BC #### [facility] [address] [place] [address] Dr. Dwight Waters BILIRUBIN TOTALon 06-06-2022 Bilirubin [Mass/Vol] 1.0 mg/dL Normal 0.2-1.0 [facility] Comment on above: Performed By: #### C BC #### [facility] [address] [place] [address] Dr. Dwight Waters BUNon 06-06-2022 Urea nitrogen [Mass/Vol] 18.0 mg/dL Normal 7.0-18.0 [facility] Comment on above: Performed By: #### C BC #### [facility] [address] [place] [address] Dr. Dwight Waters CALCIUMon 06-06-2022 Calcium [Mass/Vol] 9.4 mg/dL Normal 8.5-10.1 [facility] Comment on above: Performed By: #### C MP #### [facility] [address] [place] [address] Dr. Dwight Waters CBC AUTO DIFFon 06-06-2022 BASO # 0.1 103/ul Normal 0.0-0.1 [facility] Comment on above: Performed By: #### U RTPCR #### [facility] [address] [place] [address] Dr. Dwight Waters Basophils/100 WBC (Bld) 0.8 % Normal 0.2-2.0 [facility] Comment on above: Performed By: #### U RTPCR #### [facility] [address] [place] [address] Dr. Dwight Waters EO # 0.3 103/ul Normal 0.0-0.7 [facility] Comment on above: Performed By: #### U RTPCR #### [facility] [address] [place] [address] Dr. Dwight Waters Eosinophils/100 WBC (Bld) 3.3 % Normal 0.9-7.0 [facility] Comment on above: Performed By: #### U RTPCR #### [facility] [address] [place] [address] Dr. Dwight Waters Erythrocyte distribution width (RBC) [Ratio] 12.4 % Normal 11.0-15.0 [facility] Comment on above: Performed By: #### U RTPCR #### [facility] [address] [place] [address] Dr. Dwight Waters Hematocrit (Bld) [Volume fraction] 45.1 % Normal 42.0-54.0 [facility] Comment on above: Performed By: #### U RTPCR #### [facility] [address] [place] [address] Dr. Dwight Waters Hemoglobin (Bld) [Mass/Vol] 14.4 g/dL Normal 14.0-18.0 [facility] Comment on above: Performed By: #### U RTPCR #### [facility] [address] [place] [address] Dr. Dwight Waters IG # 0.01 10e3/ul Normal 0.00-0.03 [facility] Comment on above: Performed By: #### U RTPCR #### [facility] [address] [place] [address] Dr. Dwight Wtaers IG % 0.1 % Normal 0.0-0.5 [facility] Comment on above: Performed By: #### U RTPCR #### [facility] [address] [place] [address] Dr. Dwight Waters LYMPH # 2.2 103/ul Normal 1.2-3.8 [facility] Comment on above: Performed By: #### U RTPCR #### [facility] [address] [place] [address] Dr. Dwight Waters Lymphocytes/100 WBC (Bld) 30.0 % Normal 20.5-60.0 [facility] Comment on above: Performed By: #### U RTPCR #### [facility] [address] [place] [address] Dr. Dwight Waters MANUAL DIFF REQ NO Normal [facility] Comment on above: Performed By: #### U RTPCR #### [facility] [address] [place] [address] Dr. Dwight Waters MCH (RBC) [Entitic mass] 28.2 pg Normal 25.9-34.0 [facility] Comment on above: Performed By: #### U RTPCR #### [facility] [address] [place] [address] Dr. Dwight Waters MCHC (RBC) [Mass/Vol] 31.9 g/dL Normal 29.9-35.2 [facility] Comment on above: Performed By: #### U RTPCR #### [facility] [address] [place] [address] Dr. Dwight Waters MCV (RBC) [Entitic vol] 88.3 fL Normal 80.0-94.0 [facility] Comment on above: Performed By: #### U RTPCR #### [facility] [address] [place] [address] Dr. Dwight Waters MONO # 0.6 103/ul Normal 0.3-0.8 [facility] Comment on above: Performed By: #### U RTPCR #### [facility] [address] [place] [address] Dr. Dwight Waters Monocytes/100 WBC (Bld) 8.2 % Normal 1.7-12.0 [facility] Comment on above: Performed By: #### U RTPCR #### [facility] [address] [place] [address] Dr. Dwight Waters NEUT # 4.3 103/ul Normal 1.4-6.5 [facility] Comment on above: Performed By: #### U RTPCR #### [facility] [address] [place] [address] Dr. Dwight Waters Neutrophils/100 WBC (Bld) 57.6 % Normal 43.0-75.0 [facility] Comment on above: Performed By: #### U RTPCR #### [facility] [address] [place] [address] Dr. Dwight Waters Platelet mean volume (Bld) [Entitic vol] 9.7 fL Normal 9.5-13.5 [facility] Comment on above: Performed By: #### U RTPCR #### [facility] [address] [place] [address] Dr. Dwight Waters PLT 297 103/ul Normal 150-450 [facility] Comment on above: Performed By: #### U RTPCR #### [facility] [address] [place] [address] Dr. Dwight Waters RBC 5.11 106/ul Normal 4.70-6.10 [facility] Comment on above: Performed By: #### U RTPCR #### [facility] [address] [place] [address] Dr. Dwight Waters WBC 7.5 103/ul Normal 4.0-11.0 [facility] Comment on above: Performed By: #### U RTPCR #### [facility] [address] [place] [address] Dr. Dwight Waters CHLORIDEon 06-06-2022 Chloride [Moles/Vol] 107 mmol/L Normal 98-107 [facility] Comment on above: Performed By: #### C BC #### [facility] [address] [place] [address] Dr. Dwight Waters CO2on 06-06-2022 CO2 [Moles/Vol] 27.4 mmol/L Normal 21.0-32.0 [facility] Comment on above: Performed By: #### C BC #### [facility] [address] [place] [address] Dr. Dwight Waters CREATININEon 06-06-2022 Creatinine [Mass/Vol] 1.20 mg/dL Normal 0.70-1.30 [facility] Comment on above: Performed By: #### C BC #### [facility] [address] [place] [address] Dr. Dwight Waters EGFR-AF BRITISH >60 Normal >=60 [facility] Comment on above: Performed By: #### C BC #### [facility] [address] [place] [address] Dr. Dwight Waters EGFR-NON AF BRITISH >60 Normal >=60 [facility] Comment on above: Performed By: #### C BC #### [facility] [address] [place] [address] Dr. Dwight Waters GGTon 06-06-2022 Gamma glutamyl transferase [Catalytic activity/Vol] 29 U/L Normal 15-85 [facility] Comment on above: Performed By: #### C BC #### [facility] [address] [place] [address] Dr. Dwight Waters GLUCOSE BLOODon 06-06-2022 Glucose [Mass/Vol] 112 mg/dL Critically high 74-106 [facility] Comment on above: Performed By: #### C BC #### [facility] [address] [place] [address] Dr. Dwight Waters MAGNESIUMon 06-06-2022 Magnesium [Mass/Vol] 1.3 mg/dL Critically low 1.8-2.4 [facility] Comment on above: Performed By: #### C MP #### [facility] [address] [place] [address] Dr. Dwight Waters NAon 06-06-2022 Sodium [Moles/Vol] 141 mmol/L Normal 136-145 [facility] Comment on above: Performed By: #### C MP #### [facility] [address] [place] [address] Dr. Dwight Waters PHOSPHORUSon 06-06-2022 Phosphate [Mass/Vol] 3.1 mg/dL Normal 2.6-4.7 [facility] Comment on above: Performed By: #### C MP #### [facility] [address] [place] [address] Dr. Dwight Waters POTASSIUMon 06-06-2022 Potassium [Moles/Vol] 4.3 mmol/L Normal 3.5-5.1 [facility] Comment on above: Performed By: #### C BC #### [facility] [address] [place] [address] Dr. Dwight Waters SGOTon 06-06-2022 AST [Catalytic activity/Vol] 16 U/L Normal 15-37 [facility] Comment on above: Performed By: #### C BC #### [facility] [address] [place] [address] Dr. Dwight Waters SGPTon 06-06-2022 ALT [Catalytic activity/Vol] 50 U/L Normal 16-63 [facility] Comment on above: Performed By: #### C BC #### [facility] [address] [address] [address] Dwight Waters Bacteria identified Cx Nom ( Bld)on 05-21-2022 Bacteria identified Cx Nom (Unsp spec) NO GROWTH DAY 5 OF 5 [facility] Results may be compr omised due to volume of BACT\ALERT bottle exceeding 10mLs . The optimal blood volume is 8-10 mls per aerobic/anaerobic blood culture bottle. [facility] CALCIUMon 05-20-2022 Calcium [Mass/Vol] 9.1 [...] Hospital RBC (Bld) [#/Vol] 4.25 10*6/uL Low [facility] WBC (Bld) [#/Vol] 6.31 10*3/uL 3.73 - 10. 10 K/uL [facility] CHEM 7 (LYTES,BUN,CREA,GLUC) on 05-20-2022 [...] (S/P/Bld) [Vol rate/Area] 81 >=60 mL/min/1.73m 2 [facility] Comment on above: Reported eGFR is bas ed on the CKD-EPI 2020 equation using creatinine, age, and sex. Glucose [Mass/Vol] 92 mg/dL 70 - 99 mg/dL [facility] Interpretation and review of laboratory results Abnormal [facility] Osmolality Calc [Osmolality] 302 [facility] Potassium [Moles/Vol] 4.4 mmol/L 3.5 - 5.0 mmol/L [facility] Sodium [Moles/Vol] 144 mmol/L 135 - 145 mmol/L [facility] Urea nitrogen [Mass/Vol] 18 mg/dL 7 - 25 mg/dL [facility] Urea nitrogen/Creatinine [Mass ratio] 16 mg/mg [facility] MAGNESIUMon 05-20-2022 Interpretation and review of laboratory results Abnormal [facility] Magnesium [Mass/Vol] 1.5 mg/dL Low 1.6 - 2 .6 mg/dL [facility] No Panel Informationon 05-20 Interpretation and review of laboratory results Normal [facility] PHOSPHATE, INORGANICon 05-20 Phosphate [Mass/Vol] [...] projections of kidneys, ureters, and bladder. FINDINGS: Emergency Room Orderly images: Emergency Room Orderly radiographs of the abdomen reveal a nonobstructive [...] Contrast refluxes up the ureter to the [place] right kidney that is grossly normal appearing. [...] projections of kidneys, ureters, and bladder. FINDINGS: Emergency Room Orderly images: Emergency Room Orderly radiographs of the abdomen reveal a nonobstructive [...] Contrast refluxes up the ureter to the [place] right kidney that is grossly normal appearing. [...] Hospital RBC (Bld) [#/Vol] 4.20 10*6/uL Low [facility] WBC (Bld) [#/Vol] 6.81 10*3/uL 3.73 - 10. 10 K/uL [facility] CHEM 7 (LYTES,BUN,CREA,GLUC) on 05-19-2022 [...] (S/P/Bld) [Vol rate/Area] 61 >=60 mL/min/1.73m 2 [facility] Comment on above: Reported eGFR is bas ed on the CKD-EPI 2020 equation using creatinine, age, and sex. Glucose [Mass/Vol] 121 mg/dL High 70 - 99 mg/dL [facility] Interpretation and review of laboratory results Abnormal [facility]ality [facility]ality] [facility] Potassium [Moles/Vol] 3.8 mmol/L 3.5 - 5.0 mmol/L [facility] Sodium [Moles/Vol] 144 mmol/L 135 - 145 mmol/L [facility] Urea nitrogen [Mass/Vol] 18 mg/dL 7 - 25 mg/dL [facility] Urea nitrogen/Creatinine [Mass ratio] 13 mg[facility] Anion gap [Moles/Vol] 15 mmol/L 7 - 17 mmol/L [facility] Chloride [Moles/Vol] 106 mmol/L 98 - 10 8 mmol/L [facility] CO2 [Moles/Vol] 24 mmol/L 21 - 31 mmol/L [facility] Creatinine [Mass/Vol] 1.46 mg/dL High 0.70 - 1.30 mg/dL [facility] GFR/1.73 sq M.predicted CKD-EPI (S/P/Bld) [Vol rate/Area] 58 Low >=60 mL/min/1.73m 2 [facility] Comment on above: Reported eGFR is bas ed on the CKD-EPI 2020 equation using creatinine, age, and sex. Glucose [Mass/Vol] 103 mg/dL High 70 - 99 mg/dL [facility] Interpretation and review of laboratory results Abnormal [facility] Osmolality Calc [[facility]olality] [facility] Potassium [Moles/Vol] 3.9 mmol/L [...] Interpretation and review of laboratory results Normal [facility] Interpretation and review of laboratory results Normal [facility] PHOSPHATE, INORGANICon 05-19 Phosphate [Mass/Vol] [...] Hospital RBC (Bld) [#/Vol] 4.12 10*6/uL Low [facility] WBC (Bld) [#/Vol] 10.19 10*3/uL High 3.73 - 10 .10 K/uL [facility] CHEM 7 (LYTES,BUN,CREA,GLUC) on 05-18-2022 Anion gap [Moles/Vol] 13 mmol/L 7 - 17 mmol/L [facility] Chloride [Moles/Vol] 102 mmol/L 98 - 10 8 mmol/L [facility] CO2 [Moles/Vol] 26 mmol/L 21 - 31 mmol/L [facility] Creatinine [Mass/Vol] 1.91 mg/dL High 0.70 - 1.30 mg/dL [facility] GFR/1.73 sq M.predicted CKD-EPI (S/P/Bld) [Vol rate/Area] 42 Low >=60 mL/min/1.73m 2 [facility] Comment on above: Reported eGFR is bas ed on the CKD-EPI 2020 equation using creatinine, age, and sex. Glucose [Mass/Vol] 158 mg/dL High 70 - 99 mg/dL [facility] Osmolality Calc [Osmolality] 297 [facility] Potassium [Moles/Vol] 4.0 mmol/L 3.5 - 5.0 mmol/L [facility] Sodium [Moles/Vol] 137 mmol/L 135 - 145 mmol/L [facility] Urea nitrogen [Mass/Vol] 30 mg/dL High 7 - 25 mg/dL [facility] Urea nitrogen/Creatinine [Mass ratio] 16 mg/mg [facility] CHEM 7 (LYTES,BUN,CREA,GLUC) Ordered By: Tamiko Thapa on 05-18-2022 Anion gap [Moles/Vol] 13 mmol/L 7 - 17 mmol/L [facility] Chloride [Moles/Vol] 104 mmol/L 98 - 10 8 mmol/L [facility] CO2 [Moles/Vol] 26 mmol/L 21 - 31 mmol/L [facility] Creatinine [Mass/Vol] 2.96 mg/dL High 0.70 - 1.30 mg/dL [facility] GFR/1.73 sq M.predicted CKD-EPI (S/P/Bld) [Vol rate/Area] 25 Low >=60 mL/min/1.73m 2 [facility] Comment on above: Reported eGFR is bas ed on the CKD-EPI 2020 equation using creatinine, age, and sex. Glucose [Mass/Vol] 136 mg/dL High 70 - 99 mg/dL [facility] Interpretation and review of laboratory results Abnormal [facility] Osmolality Calc [Osmolality] 304 [facility] Potassium [Moles/Vol] 4.2 mmol/L 3.5 - 5.0 mmol/L [facility] Sodium [Moles/Vol] 139 mmol/L 135 - 145 mmol/L [facility] Urea nitrogen [Mass/Vol] 41 mg/dL High 7 - 25 mg/dL [facility] Urea nitrogen/Creatinine [Mass ratio] 14 mg/mg [facility] MAGNESIUMon 05-18-2022 Magnesium [Mass/Vol] 2.2 mg/dL 1.6 - 2 .6 mg/dL [facility] Interpretation and review of laboratory results Normal [facility] Magnesium [Mass/Vol] 1.7 mg/dL 1.6 - 2 .6 mg/dL [facility] No Panel Informationon 05-18 Interpretation and review of laboratory results Abnormal [facility] Interpretation and review of laboratory results Normal [facility] PHOSPHATE, INORGANICon 05-18 Phosphate [Mass/Vol] 2.0 mg/dL [...] PT Coag (PPP) [Time] 14.4 s High [facility] URINE CULTUREOrdered By: Sylvia Campos on 05-18-2022 Bacteria identified Cx Nom (Unsp spec) No Growth [facility] CBC,PLATELETSon 05-17-2022 Erythrocyte distribution width [...] [facility] RBC (Bld) [#/Vol] 4.61 10*6/uL [facility] WBC (Bld) [#/Vol] 16.61 10*3/uL High 3.73 - 10 .10 K/uL [facility] CHEM 7 (LYTES,BUN,CREA,GLUC) Ordered [...] [Vol rate/Area] 11 Low >=60 mL/min/1.73m 2 [facility] Comment on above: Reported [...] Hospital Urea nitrogen/Creatinine [Mass ratio] 9 mg/mg [facility] CHEM 7 (LYTES,BUN,CREA,GLUC) Ordered [...] [Vol rate/Area] 7 Low >=60 mL/min/1.73m 2 [facility] Comment on above: Reported eGFR is bas ed on the CKD-EPI 1 equation using creatinine, age, and sex. Glucose [...] Hospital Urea nitrogen/Creatinine [Mass ratio] 7 mg/mg [facility] LAVENDER TOP TUBEon 05-17-20 [facility] MAGNESIUMon 05-17-2022 Interpretation and review of laboratory results Normal [facility] Magnesium [Mass/Vol] 1.8 mg/dL 1.6 - 2 .6 mg/dL [facility] Interpretation and review of laboratory results Normal [facility] Magnesium [Mass/Vol] 1.6 mg/dL 1.6 - 2 .6 mg/dL [facility] No Panel Informationon 05-17 [facility] PHOSPHATE, INORGANICon 05-17 Interpretation and review of laboratory results Abnormal [facility] Phosphate [Mass/Vol] 4.9 mg/dL High 2.2 - 4 .6 mg/dL [facility] PT,INR,PTTon 05-17-2022 aPTT Coag (PPP) [Time] 33.0 s [facility] INR Coag (Bld) [Relative time] 1.3 {INR} High [facility] Interpretation and review of laboratory results Abnormal [facility] PT Coag (PPP) [Time] 15.7 s High [facility] Portable XR Chest Viewson [...] on 05-17-2022 Appearance (U) Cloudy Abnormal Clear [facility] Comment on above: Results may be inacc urate due to color interference. Clinical correlation recommended. Bacteria LM Ql (Urine sed) ABSENT ABSENT [facility] Color (U) Red Abnormal Yellow [facility] pH (U) 5.0 [pH] 5.0 - 7.0 [facility] Comment on above: Results may be inacc urate due to color interference. Clinical correlation recommended. Protein (U) [Mass/Vol] mg/dL Abnormal Negative [facility] Comment on above: Results may be inacc urate due to color interference. Clinical correlation recommended. RBC (U) [#/Vol] Large Abnormal Negative [facility] Comment on above: Results may [...] [#/Area] /[HPF] Abnormal 0 - 5 /HPF [facility] URINE CULTUREOrdered By: Tyler Tiwari on 05-17-2022 Bacteria identified Cx Nom (Unsp spec) No Growth [facility] CBC,PLATELETSon 05-16-2022 Erythrocyte distribution width [...] [facility] Hospital RBC (Bld) [#/Vol] 5.19 10*6/uL [facility] WBC (Bld) [#/Vol] 12.55 10*3/uL High 3.73 - 10 .10 K/uL [facility] CHEM 7 (LYTES,BUN,CREA,GLUC) Ordered [...] [Vol rate/Area] 10 Low >=60 mL/min/1.73m 2 [facility] Comment on above: Reported [...] Hospital Urea nitrogen/Creatinine [Mass ratio] 8 mg/mg [facility] CHEM 7 (LYTES,BUN,CREA,GLUC) on 05-16-2022 [...] [Vol rate/Area] 13 Low >=60 mL/min/1.73m 2 [facility] Comment on above: Reported [...] DETECTED [facility] Comment on above: [facility] [...] [facility] No Panel Informationon 05-16 [facility] OSMOLALITY, URINEon 05-16-20 Interpretation and review of laboratory results Normal [facility] Osmolality (U) [Osmolality] 320 mosm/kg [facility] The reference range has not been established for random urine specimens. The test result should be integrated into the clinical context for interpretation. [facility] PROCALCITONINon 05-16-2022 Interpretation and review [...] and trend procalcitonin in various clinical settings. [email or web address] Two common cutoffs associated [...] Hospital PT Coag (PPP) [Time] 14.1 s [facility] SARS-CoV-2 (COVID-19) RNA NA A+probe Ql (Unsp spec)Ordered By: Edson Candelario on 05-16-2022 Interpretation and review of laboratory results Normal [facility] TACROLIMUS LEVEL, TROUGH (IN E DRUG LEVEL)Ordered By: Mariama Nick on 05-16-2022 Interpretation and review of laboratory results Normal [facility] Tacrolimus (Bld) [Mass/Vol] 4.1 ng/mL Bone Marrow Transplant: 4.0-12.0, Therapeutic: 5.0-15.0 [facility] Method performed is a chemiluminescent microparticle immunoasssay on the [employer] i2000. The range is based on experience at [facility] and users should be aware that target concentrations vary widely depending on concomitant therapy, time post-transplant, and desired degree of immunosuppression. [facility] URINE PROTEIN/CREA RATIO, RA Smiley 05-16-2022 Creatinine (24H U) [Mass/Vol] 59.82 mg/dL [facility] Protein Unsp time (U) [Mass/Vol] 111 mg/dL [facility] Protein/Creatinine (U) [Mass ratio] 1.856 mg/g [facility] US for transplanted kidney amber sánchez 05-16-2022 IMPRESSION: 1. Pelvocaliectasis/mild hydronephrosis in [...] cell count method Nom (Bld) Electronic Differential [facility] Eosinophils (Bld) [#/Vol] 10*3/uL 0.00 - [...] [facility] Hospital RBC (Bld) [#/Vol] 5.17 10*6/uL [facility] Segmented neutrophils/100 WBC (Bld) 80.8 % [facility] WBC (Bld) [#/Vol] 15.81 10*3/uL High 3.73 - 10 .10 K/uL [facility] CBC AUTO DIFFon 05-15-2022 BASO # 0.0 103/ul Normal 0.0-0.1 [facility] Comment on above: Performed By: #### C BC #### [facility] [address] [place] [address] Dr. Dwight Waters Basophils/100 WBC (Bld) 0.3 % Normal 0.2-2.0 [facility] Comment on above: Performed By: #### C BC #### [facility] [address] [place] [address] Dr. Dwight Waters EO # 0.1 103/ul Normal 0.0-0.7 [facility] Comment on above: Performed By: #### C BC #### [facility] [address] [place] [address] Dr. Dwight Waters Eosinophils/100 WBC (Bld) 0.8 % Critically low 0.9-7.0 [facility] Comment on above: Performed By: #### C BC #### [facility] [address] [place] [address] Dr. Dwight Waters Erythrocyte distribution width (RBC) [Ratio] 12.7 % Normal 11.0-15.0 [facility] Comment on above: Performed By: #### C BC #### [facility] [address] [place] [address] Dr. Dwight Waters Hematocrit (Bld) [Volume fraction] 43.5 % Normal 42.0-54.0 [facility] Comment on above: Performed By: #### C BC #### [facility] [address] [place] [address] Dr. Dwight Waters Hemoglobin (Bld) [Mass/Vol] 14.4 g/dL Normal 14.0-18.0 [facility] Comment on above: Performed By: #### C BC #### [facility] [address] [place] [address] Dr. Dwight Waters IG # 0.02 10e3/ul Normal 0.00-0.03 [facility] Comment on above: Performed By: #### C BC #### [facility] [address] [place] [address] Dr. Dwight Waters IG % 0.2 % Normal 0.0-0.5 [facility] Comment on above: Performed By: #### C BC #### [facility] [address] [place] [address] Dr. Dwight Waters LYMPH # 1.5 103/ul Normal 1.2-3.8 [facility] Comment on above: Performed By: #### C BC #### [facility] [address] [place] [address] Dr. Dwight Waters Lymphocytes/100 WBC (Bld) 12.5 % Critically low 20.5-60.0 [facility] Comment on above: Performed By: #### C BC #### [facility] [address] [place] [address] Dr. Dwight Waters MANUAL DIFF REQ NO Normal [facility] Comment on above: Performed By: #### C BC #### [facility] [address] [address] [address] Dwight Waters MCH (RBC) [Entitic mass] 28.6 pg Normal 25.9-34.0 [facility] Comment on above: Performed By: #### C BC #### [facility] [address] [place] [address] Dr. Dwight Waters MCHC (RBC) [Mass/Vol] 33.1 g/dL Normal 29.9-35.2 [facility] Comment on above: Performed By: #### C BC #### [facility] [address] [place] [address] Dr. Dwight Waters MCV (RBC) [Entitic vol] 86.3 fL Normal 80.0-94.0 [facility] Comment on above: Performed By: #### C BC #### [facility] [address] [place] [address] Dr. Dwight Waters MONO # 1.0 103/ul Critically high 0.3-0.8 [facility] Comment on above: Performed By: #### C BC #### [facility] [address] [place] [address] Dr. Dwight Waters Monocytes/100 WBC (Bld) 8.2 % Normal 1.7-12.0 [facility] Comment on above: Performed By: #### C BC #### [facility] [address] [place] [address] Dr. Dwight Waters NEUT # 9.1 103/ul Critically high 1.4-6.5 [facility] Comment on above: Performed By: #### C BC #### [facility] [address] [place] [address] Dr. Dwight Waters Neutrophils/100 WBC (Bld) 78.0 % Critically high 43.0-75.0 [facility] Comment on above: Performed By: #### C BC #### [facility] [address] [place] [address] Dr. Dwight Waters Platelet mean volume (Bld) [Entitic vol] 9.8 fL Normal 9.5-13.5 [facility] Comment on above: Performed By: #### C BC #### [facility] [address] [place], [place] [address] Dr. Dwight Waters PLT 251 103/ul Normal 150-450 [facility] Comment on above: Performed By: #### C BC #### [facility] [address] [address] [address] Dwight Waters RBC 5.04 106/ul Normal 4.70-6.10 [facility] Comment on above: Performed By: #### C BC #### [facility] [id number] Dwight Waters WBC 11.6 103/ul Critically high 4.0-11.0 [facility] Comment on above: Performed By: #### C BC #### [facility] [address] [address] [address] Dwight Waters CHEM 6 (LYTES, BUN CREA)on 0 05-15-2022 Anion gap [Moles/Vol] 12 mmol/L 7 - 17 mmol/L [facility] Chloride [Moles/Vol] 105 mmol/L 98 - 10 8 mmol/L [facility] CO2 [Moles/Vol] 26 mmol/L 21 - 31 mmol/L [facility] Creatinine [Mass/Vol] 2.85 mg/dL High 0.70 - 1.30 mg/dL [facility] GFR/1.73 sq M.predicted CKD-EPI (S/P/Bld) [Vol rate/Area] 26 Low >=60 mL/min/1.73m 2 [facility] Comment on above: Reported eGFR is bas ed on the CKD-EPI 2020 equation using creatinine, age, and sex. Potassium [Moles/Vol] 4.6 mmol/L 3.5 - 5.0 mmol/L [facility] Sodium [Moles/Vol] 138 mmol/L 135 - 145 mmol/L [facility] Urea nitrogen [Mass/Vol] 32 mg/dL High 7 - 25 mg/dL [facility] Urea nitrogen/Creatinine [Mass ratio] 11 mg/mg [facility] CT ABD/PELVIS WO CONon 06-16 -2022 CT ABD/PELVIS WO CON EXAM: CT ABD/PELVIS [...] transplanted kidney with moderate right-sided hydronephrosis. Atrophic [place] kidneys with moderate right-sided hydronephrosis. Multiple nonobstructive [...] transplanted kidney with moderate right-sided hydronephrosis. Atrophic [place] kidneys with moderate right-sided hydronephrosis. Multiple nonobstructive right renal calculi measuring up to 8 mm. FOLLOW-UP: Follow-up as clinically indicated. Electronically authenticated by: LYNDSAY JEAN Date: 2022-05-15 05:04 Normal [facility] Covid-19 PCR (CVDTB)on 04-30 SARS-CoV-2 (COVID-19) RNA ESTELITA+probe Ql (Unsp spec) Not detected Normal NOT DETECTED [facility] Comment on above: Result Comment: When [...] for this test is supported by the Record Press Tender of Health and Human Service's declaration that [...] used). Performed By: #### U RTPCR #### [facility] [address] [address] [address] Dwight Waters GLUCOSEon 05-15-2022 Glucose [Mass/Vol] 141 mg/dL High 70 - 99 mg/dL [facility] GOLD TOP TUBEon 05-15-2022 [facility] HEPATIC FUNCTION PANELon Albumin [Mass/Vol] 4.3 g/dL 3.5 - 5.0 g/dL [facility] ALP [Catalytic activity/Vol] 85 U/L 32 - 126 U/L [facility] ALT [Catalytic activity/Vol] 13 U/L 10 [...] Interpretation and review of laboratory results Abnormal [facility] PROF 14(COMP METB)on 022 Albumin [Mass/Vol] 3.8 g/dL Normal 3.4-5.0 [facility] Comment on above: Performed By: #### U RTPCR #### [facility] [address] [place] [address] Dr. Dwight Waters Albumin/Globulin [Mass ratio] 1.1 {ratio} Normal [facility] Comment on above: Performed By: #### U RTPCR #### [facility] [address] [place] [address] Dr. Dwight Waters ALP [Catalytic activity/Vol] 92 U/L Normal 46-116 [facility] Comment on above: Performed By: #### U RTPCR #### [facility] [address] [place] [address] Dr. Dwight Waters ALT [Catalytic activity/Vol] 25 U/L Normal 16-63 [facility] Comment on above: Performed By: #### U RTPCR #### [facility] [address] [place] [address] Dr. Dwight Waters Anion gap [Moles/Vol] 14.6 mmol/L Normal [facility] Comment on above: Performed By: #### U RTPCR #### [facility] [address] [place] [address] Dr. Dwight Waters AST [Catalytic activity/Vol] 17 U/L Normal 15-37 [facility] Comment on above: Performed By: #### U RTPCR #### [facility] [address] [place] [address] Dr. Dwight Waters Bilirubin [Mass/Vol] 0.6 mg/dL Normal 0.2-1.0 [facility] Comment on above: Performed By: #### U RTPCR #### [facility] [address] [place] [address] Dr. Dwight Waters Calcium [Mass/Vol] 9.9 mg/dL Normal 8.5-10.1 [facility] Comment on above: Performed By: #### U RTPCR #### [facility] [address] [place] [address] Dr. Dwight Waters Chloride [Moles/Vol] 106 mmol/L Normal 98-107 [facility] Comment on above: Performed By: #### U RTPCR #### [facility] [address] [place] [address] Dr. Dwight Waters CO2 [Moles/Vol] 24.2 mmol/L Normal 21.0-32.0 [facility] Comment on above: Performed By: #### U RTPCR #### [facility] [address] [address] [address] Dwight Waters Creatinine [Mass/Vol] 1.58 mg/dL Critically high 0.70-1.30 [facility] Comment on above: Performed By: #### U RTPCR #### [facility] [address] [address] [address] Dwight Waters EGFR-AF BRITISH 56 mL/min/1.73m2 Critically low >=60 [facility] Comment on above: Performed By: #### U RTPCR #### [facility] [address] [place] [address] Dr. Dwight Waters EGFR-NON AF BRITISH 46 mL/min/1.73m2 Critically low >=60 [facility] Comment on above: Performed By: #### U RTPCR #### [facility] [address] [place] [address] Dr. Dwight Waters Globulin (S) [Mass/Vol] 3.5 g/dL Normal [facility] Comment on above: Performed By: #### U RTPCR #### [facility] [address] [place] [address] Dr. Dwight Waters Glucose [Mass/Vol] 162 mg/dL Critically high 74-106 [facility] Comment on above: Performed By: #### U RTPCR #### [facility] [address] [place] [address] Dr. Dwight Waters Potassium [Moles/Vol] 3.8 mmol/L Normal 3.5-5.1 [facility] Comment on above: Performed By: #### U RTPCR #### [facility] [address] [place] [address] Dr. Dwight Waters Protein [Mass/Vol] 7.3 g/dL Normal 6.4-8.2 [facility] Comment on above: Performed By: #### U RTPCR #### [facility] [address] [place] [address] Dr. Dwight Waters Sodium [Moles/Vol] 141 mmol/L Normal 136-145 [facility] Comment on above: Performed By: #### U RTPCR #### [facility] [address] [address] [address] Dwight Waters Urea nitrogen [Mass/Vol] 22.0 mg/dL Critically high 7.0-18.0 [facility] Comment on above: Performed By: #### U RTPCR #### [facility] [address] [address] [address] Dwight Waters Urea nitrogen/Creatinine [Mass ratio] 13.9 mg/mg Normal [facility] Comment on above: Performed By: #### U RTPCR #### [facility] [address] [address] [address] Dwight Waters Portable XR Chest Viewson [...] chest. IMPRESSION IMPRESSION: No acute cardiopulmonary disease [facility] Radiology Study observation (narrative) [facility] Portable XR Chest ViewsOrder ed By: Vladislav Omer [facility]-15-20[facility] UR[facility] DIPSTICK; REFLEX MICRO SCOPY; REFLEX CULTURE PERFORMABLEon 05-15-2022 Appearance (U) Clear Clear [facility] Color (U) Yellow Yellow [facility] Glucose Test strip (U) [Mass/Vol] 100 mg/dL Abnormal Negative [facility] Interpretation and review of laboratory results Abnormal [facility] Ketones (U) [Mass/Vol] Negative Negative [facility] Leukocyte esterase Test strip Ql (U) Large Abnormal Negative [facility] Nitrite Ql (U) Negative Negative [facility] pH (U) 6.0 [pH] 5.0 - 7.0 [facility] Protein (U) [Mass/Vol] 100 mg/dL Abnormal Negative [facility] RBC (U) [#/Vol] Large Abnormal Negative [facility] Specific gravity (U) [Rel density] 1.010 [facility] Urobilinogen (U) [Mass/Vol] 0.2 E.U./dL 0.2 E.U/dL, 1.0 E.U/dL [facility] URINE MICROSCOPIC WITH REFLE X TO CULTUREOrdered By: Rey Bro on 05-15-2022 Bacteria LM Ql (Urine sed) ABSENT ABSENT [facility] Epithelial cells.squamous LM Ql (Urine sed) ABSENT 1/hpf = 1+, 2-5/hpf = 2+, 0/hpf = 0+, ABSENT [facility] Interpretation and review of laboratory results Abnormal [facility] RBC LM.HPF (Urine sed) [#/Area] /[HPF] Abnormal 0 - 2 /HPF [facility] WBC LM.HPF (Urine sed) [#/Area] 10-20 Abnormal 0 - 5 /HPF [facility] CT ABD/PELVIS WO CONon 05-12 CT ABD/PELVIS WO CON Begin Addendum #[address] Lund 3:25 PM EST 05/11/2022. Begin Addendum #2 IMPRESSION below should also contain the followin. 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 The [place] kidneys are progressively atrophic bilaterally compared to [...] of 06/14/2020 are no longer present. The [place] distal right ureter is decompressed beyond this [...] with surgical history for renal graft and [place] right urinary drainage, as a discrete ureteroneocystostomy is not identified, and the graft may be draining via a ureteroureterostomy. Urology consultation recommended. 3. The [place] kidneys are bilaterally atrophic, with right renal sinus calcifications consistent with nonobstructing right [place] renal calculi up to 6 mm. Normal [facility] CBC AUTO DIFFon 05-11-2022 BASO # 0.1 103/ul Normal 0.0-0.1 [facility] Comment on above: Performed By: #### U RTPCR #### [facility] [address] [place] [address] Dr. Dwight Waters Basophils/100 WBC (Bld) 0.8 % Normal 0.2-2.0 [facility] Comment on above: Performed By: #### U RTPCR #### [facility] [address] [place] [address] Dr. Dwight Waters EO # 0.2 103/ul Normal 0.0-0.7 [facility] Comment on above: Performed By: #### U RTPCR #### [facility] [address] [place] [address] Dr. Dwight Waters Eosinophils/100 WBC (Bld) 2.5 % Normal 0.9-7.0 [facility] Comment on above: Performed By: #### U RTPCR #### [facility] [address] [place] [address] Dr. Dwight Waters Erythrocyte distribution width (RBC) [Ratio] 12.5 % Normal 11.0-15.0 [facility] Comment on above: Performed By: #### U RTPCR #### [facility] [address] [place] [address] Dr. Dwight Waters Hematocrit (Bld) [Volume fraction] 48.3 % Normal 42.0-54.0 [facility] Comment on above: Performed By: #### U RTPCR #### [facility] [address] [place] [address] Dr. Dwight Waters Hemoglobin (Bld) [Mass/Vol] 15.3 g/dL Normal 14.0-18.0 [facility] Comment on above: Performed By: #### U RTPCR #### [facility] [address] [place] [address] Dr. Dwight Waters IG # 0.01 10e3/ul Normal 0.00-0.03 [facility] Comment on above: Performed By: #### U RTPCR #### [facility] [address] [place] [address] Dr. Dwight Waters IG % 0.2 % Normal 0.0-0.5 [facility] Comment on above: Performed By: #### U RTPCR #### [facility] [address] [place] [address] Dr. Dwight Waters LYMPH # 1.9 103/ul Normal 1.2-3.8 [facility] Comment on above: Performed By: #### U RTPCR #### [facility] [address] [place] [address] Dr. Dwight Waters Lymphocytes/100 WBC (Bld) 29.8 % Normal 20.5-60.0 [facility] Comment on above: Performed By: #### U RTPCR #### [facility] [address] [place] [address] Dr. Dwight Waters MANUAL DIFF REQ NO Normal [facility] Comment on above: Performed By: #### U RTPCR #### [facility] [address] [place] [address] Dr. Dwight Waters MCH (RBC) [Entitic mass] 28.2 pg Normal 25.9-34.0 [facility] Comment on above: Performed By: #### U RTPCR #### [facility] [address] [place] [address] Dr. Dwight Waters MCHC (RBC) [Mass/Vol] 31.7 g/dL Normal 29.9-35.2 [facility] Comment on above: Performed By: #### U RTPCR #### [facility] [address] [place] [address] Dr. Dwight Waters MCV (RBC) [Entitic vol] 89.1 fL Normal 80.0-94.0 [facility] Comment on above: Performed By: #### U RTPCR #### [facility] [address] [place] [address] Dr. Dwight Waters MONO # 0.6 103/ul Normal 0.3-0.8 [facility] Comment on above: Performed By: #### U RTPCR #### [facility] [address] [place] [address] Dr. Dwight Waters Monocytes/100 WBC (Bld) 9.0 % Normal 1.7-12.0 [facility] Comment on above: Performed By: #### U RTPCR #### [facility] [address] [place] [address] Dr. Dwight Waters NEUT # 3.6 103/ul Normal 1.4-6.5 [facility] Comment on above: Performed By: #### U RTPCR #### [facility] [address] [place] [address] Dr. Dwight Waters Neutrophils/100 WBC (Bld) 57.7 % Normal 43.0-75.0 [facility] Comment on above: Performed By: #### U RTPCR #### [facility] [address] [place] [address] Dr. Dwight Waters Platelet mean volume (Bld) [Entitic vol] 9.9 fL Normal 9.5-13.5 [facility] Comment on above: Performed By: #### U RTPCR #### [facility] [address] [place] [address] Dr. Dwight Waters PLT 249 103/ul Normal 150-450 [facility] Comment on above: Performed By: #### U RTPCR #### [facility] [address] [place] [address] Dr. Dwight Waters RBC 5.42 106/ul Normal 4.70-6.10 [facility] Comment on above: Performed By: #### U RTPCR #### [facility] [address] [place] [address] Dr. Dwight Waters WBC 6.3 103/ul Normal 4.0-11.0 [facility] Comment on above: Performed By: #### U RTPCR #### [facility] [address] [place] [address] Dr. Dwight Waters ER URINE PROFILEon 2 Bilirubin Ql (U) Unable to perform te sting due to color interference. Abnormal NEGATIVE [facility] Comment on above: Performed By: #### U RTPCR #### [facility] [address] [place] [address] Dr. Dwight Waters Clarity (U) TURBID Abnormal CLEAR [facility] Comment on above: Performed By: #### U RTPCR #### [facility] [address] [place] [address] Dr. Dwight Waters Color (U) RED Abnormal YELLOW [facility] Comment on above: Performed By: #### U RTPCR #### [facility] [address] [place] [address] Dr. Dwight Waters ERUBERTHA A micrscopic examina tion will be performed if indicated. Normal [facility] Comment on above: Performed By: #### U RTPCR #### [facility] [address] [place] [address] Dr. Dwight Waters Glucose Ql (U) Unable to perform te sting due to color interference. Abnormal NEGATIVE [facility] Comment on above: Performed By: #### U RTPCR #### [facility] [address] [place] [address] Dr. Dwight Waters Hemoglobin Ql (U) Unable to perform te sting due to color interference. Abnormal NEGATIVE [facility] Comment on above: Performed By: #### U RTPCR #### [facility] [address] [place] [address] Dr. Dwight Waters Ketones Ql (U) Unable to perform te sting due to color interference. Abnormal NEGATIVE [facility] Comment on above: Performed By: #### U RTPCR #### [facility] [address] [place] [address] Dr. Dwight Waters LEUKOCYTES Unable to perform te sting due to color interference. Abnormal NEGATIVE [facility] Comment on above: Performed By: #### U RTPCR #### [facility] [address] [place] [address] Dr. Dwight Waters Nitrite Ql (U) Unable to perform te sting due to color interference. Abnormal NEGATIVE [facility] Comment on above: Performed By: #### U RTPCR #### [facility] [address] [place] [address] Dr. Dwight Waters pH (U) 6.5 [pH] Normal 5-9 [facility] Comment on above: Performed By: #### U RTPCR #### [facility] [address] [place] [address] Dr. Dwight Waters SPEC GRAVITY 1.020 Normal 1.005-<=1.02 5 [facility] Comment on above: Performed By: #### U RTPCR #### [facility] [address] [place] [address] Dr. Dwight Waters UA PROTEIN Unable to perform te sting due to color interference. Normal NEGATIVE/ TRACE [facility] Comment on above: Performed By: #### U RTPCR #### [facility] [address] [place] [address] Dr. Dwight Waters UR MICRO IND INDICATED Normal [facility] Comment on above: Performed By: #### U RTPCR #### [facility] [address] [place] [address] Dr. Dwight Waters UROBILINOGEN Unable to perform te sting due to color interference. Normal 0.2 - 1.0 [facility] Comment on above: Performed By: #### U RTPCR #### [facility] [address] [place] [address] Dr. Dwight Waters PROF 14(COMP METB)on 022 Albumin [Mass/Vol] 3.8 g/dL Normal 3.4-5.0 [facility] Comment on above: Performed By: #### C MP #### [facility] [address] [place] [address] Dr. Dwight Waters Albumin/Globulin [Mass ratio] 1.1 {ratio} Normal [facility] Comment on above: Performed By: #### C MP #### [facility] [address] [address] [address] Dwight Waters ALP [Catalytic activity/Vol] 106 U/L Normal 46-116 [facility] Comment on above: Performed By: #### C MP #### [facility] [address] [place] [address] Dr. Dwight Waters ALT [Catalytic activity/Vol] 30 U/L Normal 16-63 [facility] Comment on above: Performed By: #### C MP #### [facility] [address] [place] [address] Dr. Dwight Waters Anion gap [Moles/Vol] 11.7 mmol/L Normal [facility] Comment on above: Performed By: #### C MP #### [facility] [address] [place] [address] Dr. Dwight Waters AST [Catalytic activity/Vol] 16 U/L Normal 15-37 [facility] Comment on above: Performed By: #### C MP #### [facility] [address] [place] [address] Dr. Dwight Waters Bilirubin [Mass/Vol] 0.6 mg/dL Normal 0.2-1.0 [facility] Comment on above: Performed By: #### C MP #### [facility] [address] [place] [address] Dr. Dwight Waters Calcium [Mass/Vol] 9.1 mg/dL Normal 8.5-10.1 [facility] Comment on above: Performed By: #### C MP #### [facility] [address] [place] [address] Dr. Dwight Waters CO2 [Moles/Vol] 27.4 mmol/L Normal 21.0-32.0 [facility] Comment on above: Performed By: #### C MP #### [facility] [address] [place] [address] Dr. Dwight Waters Creatinine [Mass/Vol] 1.18 mg/dL Normal 0.70-1.30 [facility] Comment on above: Performed By: #### C MP #### [facility] [address] [address] [address] Dwight Waters EGFR-AF BRITISH >60 Normal >=60 [facility] Comment on above: Performed By: #### C MP #### [facility] [address] [address] [address] Dwight Waters EGFR-NON AF BRITISH >60 Normal >=60 [facility] Comment on above: Performed By: #### C MP #### [facility] [address] [address] [address] Dwight Waters Globulin (S) [Mass/Vol] 3.6 g/dL Normal [facility] Comment on above: Performed By: #### C MP #### [facility] [address] [place] [address] Dr. Dwight Waters Glucose [Mass/Vol] 192 mg/dL Critically high 74-106 [facility] Comment on above: Performed By: #### C MP #### [facility] [address] [address] [address] Dwight Waters Potassium [Moles/Vol] 4.1 mmol/L Normal 3.5-5.1 [facility] Comment on above: Performed By: #### C MP #### [facility] [address] [place] [address] Dr. Dwight Waters Protein [Mass/Vol] 7.4 g/dL Normal 6.4-8.2 [facility] Comment on above: Performed By: #### C MP #### [facility] [address] [address] [address] Dwight Waters Sodium [Moles/Vol] 142 mmol/L Normal 136-145 [facility] Comment on above: Performed By: #### C MP #### [facility] [address] [place] [address] Dr. Dwight Waters Urea nitrogen [Mass/Vol] 17.0 mg/dL Normal 7.0-18.0 [facility] Comment on above: Performed By: #### C MP #### [facility] [address] [place] [address] Dr. Dwight Waters Urea nitrogen/Creatinine [Mass ratio] 14.4 mg/mg Normal [facility] Comment on above: Performed By: #### C MP #### [facility] [address] [place] [address] Dr. Dwight Waters URINE MICROSCOPIC ONLYon BACTERIA NONE SEEN Normal NONE SEEN [facility] Comment on above: Performed By: #### U RTPCR #### [facility] [address] [place] [address] Dr. Dwight Waters Bacteria identified Cx Nom (U) NOT INDICATED Normal [facility] Comment on above: Performed By: #### U RTPCR #### [facility] [address] [place] [address] Dr. Dwight Waters CAST NONE SEEN Normal NONE SEEN [facility] Comment on above: Performed By: #### U RTPCR #### [facility] [address] [place] [address] Dr. Dwight Waters Crystals LM Nom (Urine sed) NONE SEEN Normal NONE SEEN [facility] Comment on above: Performed By: #### U RTPCR #### [facility] [address] [place] [address] Dr. Dwight Waters Epithelial cells LM Ql (Urine sed) RARE Normal NONE SEEN /RARE [facility] Comment on above: Performed By: #### U RTPCR #### [facility] [address] [place] [address] Dr. Dwight Waters MUCOUS NONE SEEN Normal NONE SEEN [facility] Comment on above: Performed By: #### U RTPCR #### [facility] [address] [place] [address] Dr. Dwight Waters RBC (U) [#/Vol] /uL Abnormal 0-2 [facility] Comment on above: Performed By: #### U RTPCR #### [facility] [address] [place] [address] Dr. Dwight Waters WBC NONE SEEN Normal NONE SEEN [facility] Comment on above: Performed By: #### U RTPCR #### [facility] [address], [place] [address] Dr. Dwight Ortiz (Potassium)on 01-06-2020 Potassium [Moles/Vol] 4.4 mmol/L Normal 3.7-5.3 [facility] Comment on above: Performed By: #### K #### [facility] [address] [place], [place] [address] Director Learning And Development: Kehinde Woodward MD Potassiumon 01-06-2020 Potassium [Moles/Vol] 4.4 mmol/L 3.7 - 5.3 mmol/L [facility] Work Phone: Hemoglobin and Hematocrit, B loodon 10-24-2019 Hematocrit (Bld) [Volume fraction] 23.6 % Low 40.7 - 50.3 % [place], [place] Hemoglobin (Bld) [Mass/Vol] 7.3 g/dL Low 13 - 17 g/dL [place], [place] Interpretation and review of laboratory results Abnormal [place], [place] Hgb/Hcton 10-24-2019 Hematocrit (Bld) [Volume fraction] 23.6 % Low 40.7-50.3 [facility] Comment on above: Performed By: #### H H #### [facility] [address] [place], [place] [address] Director Learning And Development: Kehinde Woodward MD Hemoglobin (Bld) [Mass/Vol] 7.3 g/dL Low 13.0-17.0 [facility] Comment on above: Performed By: #### H H #### [facility] [address] [place] [address] Director Learning And Development: Kehinde Woodward MD Hemoglobinon 08-27-2019 Hemoglobin (Bld) [Mass/Vol] 7.5 g/dL Low 13.0-17.0 [facility] Comment on above: Performed By: #### H GB #### [facility] [address] [place] [address] Director Learning And Development: Kehinde Woodward MD Hemoglobin (Bld) [Mass/Vol] 7.5 g/dL Low 13 - 17 g/dL [place], [place] Interpretation and review of laboratory results Abnormal [place] Hemoglobinon 08-08-2019 Hemoglobin (Bld) [Mass/Vol] 8.3 g/dL Low 13.0-17.0 [facility] Comment on above: Performed By: #### H GB #### [facility] [address] [place], [place] [address] Director Learning And Development: Kehinde Woodward MD Hemoglobin (Bld) [Mass/Vol] 8.3 g/dL Low 13 - 17 g/dL [place] Interpretation and review of laboratory results Abnormal [place] Hemoglobinon 08-04-2019 Hemoglobin (Bld) [Mass/Vol] 8.0 g/dL Low 13.0-17.0 [facility] Comment on above: Performed By: #### H GB #### [facility] [address] [place], [place] [address] Director Learning And Development: Kehinde Woodward MD Hemoglobin A1Con 08-03-2019 HbA1c (Bld) [Mass fraction] % Low 4.8-5.9 [facility] Comment on above: Result Comment: The ADA and AACC recommend providing the estimated average glucose result to permit better patient understanding of their HBA1c result. Performed By: #### G LYHGB #### [facility] [address] [place] [address] [address] [place], [place] [address] Director Learning And Development: Kehinde Woodward MD Glucose [Mass/Vol] mg/dL mg/dL [place], [place] Comment on above: The ADA and AACC rec ommend providing the estimated average glucose result to permit better patient understanding of their HBA1c result. HbA1c (Bld) [Mass fraction] % Low 4.8 - 5.9 % [place] Interpretation and review of laboratory results Abnormal [place] Hemoglobinon 08-01-2019 Hemoglobin (Bld) [Mass/Vol] 8.1 g/dL Low 13.0-17.0 [facility] Comment on above: Performed By: #### H GB #### [facility] [address] [place] [facility] Director Learning And Development: Kehinde Woodward MD Hemoglobin (Bld) [Mass/Vol] 8.1 g/dL Low 13 - 17 g/dL [place] Interpretation and review of laboratory results Abnormal [place] Hgb/Hcton 06-10-2019 Hematocrit (Bld) [Volume fraction] 24.3 % Low 40.7-50.3 [facility] Comment on above: Performed By: #### H H #### [facility] [address] [place] [facility] Director Learning And Development: Kehinde Woodward MD Hemoglobin (Bld) [Mass/Vol] 7.4 g/dL Low 13.0-17.0 [facility] Comment on above: Performed By: #### H H #### [facility] [address] [place] [facility] Director Learning And Development: Kehinde Woodward MD Hemoglobinon 06-01-2019 Hemoglobin (Bld) [Mass/Vol] 7.2 g/dL Low 13.0-17.0 [facility] Comment on above: Performed By: #### H GB #### [facility] [address] [place] [id number] Director Learning And Development: Kehinde Woodward MD K (Potassium)on 01-14-2019 Potassium [Moles/Vol] 3.6 mmol/L Low 3.7-5.3 [facility] Comment on above: Performed By: #### K #### [facility] [address] [place] [facility] Director Learning And Development: Kehinde Woodward MD Otheron 10-19-2018 IMPRESSION: 1. [...] characteristics determined by Toxicology Laboratory at [facility]. It has not been cleared or [...] Amitriptyline(50), Amphetamine(250), Atenolol(500), Barbiturates(1000), Benzoylecgonine(50), Buprenorphine(50), Bupropion(25), Caffeine(21237), Chlordiazepoxide(50), Chlorpheniramine(100), Chlorpromazine(50), Citalopram(100), Clonazepam(200), Cocaine(25), Codeine(200), [...] Screen method NONE DETECTED Invalid Interpretation Code MISSY, [facility] TOXICOLOGY SCREEN URINE - [facility] 10-12-2018 Drugs identified Screen Nom (U) For Medical Purposes Only, Non-forensic, screen results are presumptive. No confirmatory testing will follow. Invalid Interpretation Code MISSY, [facility] Comment on above: This Liquid Chromato graphy Mass Spectrometry (LC/MS/MS) test was developed and its performance characteristics determined by Toxicology Laboratory at [facility]. It has not been cleared or [...] Amitriptyline(50), Amphetamine(250), Atenolol(500), Barbiturates(200), Benzoylecgonine(50), Buprenorphine(500), Bupropion(25), Caffeine(59023), Cannabinoids(THC)(50), Chlordiazepoxide(50), Chlorpheniramine(100), Chlorpromazine(50), Citalopram(100), Clonazepam(200), Cocaine(25), [...] Time Vital Sign Value Performing Clinician Facility 02-26-2024 09:07-0400 Diastolic blood pressure 56 mm[Hg] Candie Almaguer MD Work Phone: [facility] 02-26-2024 09:07-0400 Heart rate 65 /min Candie Almaguer MD Work Phone: [facility] 02-26-2024 09:07-0400 Systolic blood pressure 113 mm[Hg] Candie Almaguer MD Work Phone: [facility] 02-26-2024 09:06-0400 Body height 170.2 cm Candie Almaguer MD Work Phone: [facility] 02-26-2024 09:06-0400 Body mass index (BMI) [Ratio] 28.9 kg/m2 Candie Almaguer MD Work Phone: [facility] 02-26-2024 09:06-0400 Body weight 83.69 kg Candie Almaguer MD Work Phone: [facility] 02-26-2024 09:06-0400 Respiratory rate 20 /min Candie Almaguer MD Work Phone: [facility] 02-26-2024 09:06-0400 SaO2% (BldA) [Mass fraction] 97 % Candie Almaguer MD Work Phone: [facility] 01-23-2024 15:04-0500 Body temperature 97.9 [degF] Kevin Prince MD Work Phone: [facility] 01-23-2024 15:04-0500 Diastolic blood pressure 67 mm[Hg] Kevin Prince MD Work Phone: [facility] 01-23-2024 15:04-0500 Heart rate 51 /min Kevin Prince MD Work Phone: [facility] 01-23-2024 15:04-0500 Respiratory rate 16 /min Kevin Prince MD Work Phone: [facility] 01-23-2024 15:04-0500 SaO2% (BldA) [Mass fraction] 94 % Kevin Prince MD Work Phone: [facility] 01-23-2024 15:04-0500 Systolic blood pressure 151 mm[Hg] Kevin Prince MD Work Phone: [facility] 01-23-2024 10:46-0500 Body mass index (BMI) [Ratio] 30.94 kg/m2 Kevin Prince MD Work Phone: [facility] 01-23-2024 10:46-0500 Body weight 89.6 kg Kevin Prince MD Work Phone: [facility] 01-18-2024 11:21-0500 Body height 170.2 cm Kevin Prince MD Work Phone: [facility] 01-06-2024 09:04-0500 Body height 170.2 cm Zuly Bruno MUSIC MANAGER Work Phone: [facility] 01-06-2024 09:04-0500 Body mass index (BMI) [Ratio] 32.42 kg/m2 Zuly Bruno MUSIC MANAGER Work Phone: [facility] 01-06-2024 09:04-0500 Body temperature 97.81 [degF] Zuly Kiana MUSIC MANAGER Work Phone: [facility] 01-06-2024 09:04-0500 Body weight 93.89 kg Zuly Kiana MUSIC MANAGER Work Phone: [facility] 01-06-2024 09:04-0500 Diastolic blood pressure 70 mm[Hg] Zuly Kiana MUSIC MANAGER Work Phone: [facility] 01-06-2024 09:04-0500 Heart rate 95 /min Zuly Kiana MUSIC MANAGER Work Phone: [facility] 01-06-2024 09:04-0500 Respiratory rate 17 /min Zuly Kiana MUSIC MANAGER Work Phone: [facility] 01-06-2024 09:04-0500 SaO2% (BldA) [Mass fraction] 99 % Zuly Kiana MUSIC MANAGER Work Phone: [facility] 01-06-2024 09:04-0500 Systolic blood pressure 138 mm[Hg] Zuly Tannerjose e MUSIC MANAGER Work Phone: [facility] 09-11-2023 10:31-0400 Body temperature 97.81 [degF] Steve Yeison MBBS Work Phone: [facility] 09-11-2023 10:31-0400 Diastolic blood pressure 66 mm[Hg] Steve Yeison MBBS Work Phone: [facility] 09-11-2023 10:31-0400 Heart rate 70 /min Steve Yeison MBBS Work Phone: [facility] 09-11-2023 10:31-0400 Respiratory rate 20 /min Steve Yeison MBBS Work Phone: [facility] 09-11-2023 10:31-0400 SaO2% (BldA) [Mass fraction] 91 % Steve Yeison MBBS Work Phone: [facility] 09-11-2023 10:31-0400 Systolic blood pressure 129 mm[Hg] Steve Yeison MBBS Work Phone: [facility] 09-10-2023 15:50-0400 Body mass index (BMI) [Ratio] 31.99 kg/m2 Steve Yeison MBBS Work Phone: [facility] 09-10-2023 [...] index (BMI) [Ratio] 33.8 kg/m2 Rebeca Gutierrez CHIEF JAILER-BLOW DOWN OPERATOR Work Phone: [facility] 06-12-2023 14:50-0400 Body temperature 97.3 [degF] Rebeca Gutierrez CHIEF JAILER-BLOW DOWN OPERATOR Work Phone: [facility] 06-12-2023 14:50-0400 Body weight 97.89 kg Rebeca Gutierrez CHIEF JAILER-BLOW DOWN OPERATOR Work Phone: [facility] 06-12-2023 14:50-0400 Diastolic blood pressure 77 mm[Hg] Rebeca Gutierrez CHIEF JAILER-BLOW DOWN OPERATOR Work Phone: [facility] 06-12-2023 14:50-0400 Heart rate 76 /min Rebeca Gutierrez CHIEF JAILER-BLOW DOWN OPERATOR Work Phone: [facility] 06-12-2023 14:50-0400 Systolic blood pressure 146 mm[Hg] Rebeca Gutierrez CHIEF JAILER-BLOW DOWN OPERATOR Work Phone: [facility] 01-16-2023 08:57-0500 Body height 170.2 cm [facility] Work Phone: [facility] 01-16-2023 08:57-0500 Body mass index (BMI) [Ratio] 33.66 kg/m2 [facility] Work Phone: [facility] 01-16-2023 08:57-0500 Body temperature 97.3 [degF] [facility] Work Phone: [facility] 01-16-2023 08:57-0500 Body weight 97.48 kg [facility] Work Phone: [facility] 01-16-2023 08:57-0500 Diastolic blood pressure 75 mm[Hg] [facility] Work Phone: [facility] 01-16-2023 08:57-0500 Heart rate 76 /min [facility] Work Phone: [facility] 01-16-2023 08:57-0500 Systolic blood pressure 142 mm[Hg] [facility] Work Phone: [facility] [...] 83 mm[Hg] Ryan Yepez MD Work Phone: 5(280)326-866854 [address] 09-10-2022 09:38-0400 Heart rate 64 /min Ryan Yepez MD Work Phone: 0(911)027-989854 [address] 09-10-2022 09:38-0400 SaO2% (BldA) [Mass fraction] 96 % Ryan Yepez MD Work Phone: 2(060)608-636654 [address] 09-10-2022 09:38-0400 Systolic blood pressure 129 mm[Hg] Ryan Yepez MD Work Phone: 9(699)138-700814 [place] [address] 07-07-2022 13:48-0400 Diastolic blood pressure 76 mm[Hg] Ryan Yepez MD Work Phone: [facility] 07-07-2022 13:48-0400 Heart rate 82 /min Ryan Yepez MD Work Phone: 0(230)357-025554 [address] 07-07-2022 13:48-0400 SaO2% (BldA) [Mass fraction] 96 % Ryan Yepez MD Work Phone: 4(519)014-726554 [address] 07-07-2022 13:48-0400 Systolic blood pressure 141 mm[Hg] Ryan Yepez MD Work Phone: 3(302)096-403754 [address] 06-27-2022 13:32-0400 Body height 170.2 cm Ryan Yepez MD Work Phone: 0(416)886-910354 [address] 06-27-2022 13:32-0400 Body mass index (BMI) [...] 64 mm[Hg] Gian Villatoro MD Work Phone: [facility] 05-20-2022 15:21-0400 Heart rate 55 /min Gian Villatoro MD Work Phone: [facility] 05-20-2022 15:21-0400 Respiratory rate 15 /min Gian Villatoro MD Work Phone: [facility] 05-20-2022 15:21-0400 SaO2% (BldA) [Mass fraction] 95 % Gian Villatoro MD Work Phone: [facility] 05-20-2022 15:21-0400 Systolic blood pressure 145 mm[Hg] Gian Villatoro MD Work Phone: 8(055)326-867153 [place] [address] 05-19-2022 12:15-0400 Body mass index (BMI) [Ratio] 35.87 kg/m2 Gian Villatoro MD Work Phone: 5(069)212-610553 [place] [address] 05-19-2022 12:15-0400 Body weight 103.92 kg Gian Villatoro MD Work Phone: 6(435)158-712853 [place] [address] Comment on above: standing scale 05-16-2022 16:19-0400 Body height 170.2 cm Gian Villatoro MD Work Phone: 9(834)648-271292 [address] 10-19-2018 08:44-0500 BMI (Body Mass Index) 26.58 kg/m2 [facility] Work Phone: 10-19-2018 08:44-0500 BP Diastolic 76 mm[Hg] [facility] Work Phone: 10-19-2018 08:44-0500 BP Systolic 144 mm[Hg] [facility] Work Phone: 10-19-2018 08:44-0500 Height 172.7 cm [facility] Work Phone: 10-19-2018 08:44-0500 Pulse (Heart Rate) 92 /min [facility] Work Phone: 10-19-2018 08:44-0500 Pulse Oximetry 99 % [facility] Work Phone: 10-19-2018 08:44-0500 Respiratory Rate 16 /min [facility] Work Phone: 10-19-2018 08:44-0500 Weight 79.29 kg [facility] Work Phone: 10-12-2018 09:50-0500 BMI (Body Mass Index) 27.24 kg/m2 [facility] Work Phone: 10-12-2018 09:50-0500 Body Temperature 98.6 [degF] [facility] Work Phone: 10-12-2018 09:50-0500 BP Diastolic 80 mm[Hg] [facility] Work Phone: 10-12-2018 09:50-0500 BP Systolic 157 mm[Hg] [facility] Work Phone: 10-12-2018 09:50-0500 Height 169.5 cm [facility] Work Phone: 10-12-2018 09:50-0500 Pulse (Heart Rate) 94 /min [facility] Work Phone: 10-12-2018 09:50-0500 Weight 78.29 kg [facility] Work Phone: Encounters Encounter Date Encounter Type Care Provider Facility Start: 03-02-2024 End: 03-02-2024 ambulatory Meka Munoz [facility] Pharmacy Outpatient [facility] Start: 03-02-2024 End: 03-02-2024 Patient encounter procedure Meka Munoz [facility] Pharmacy Outpatient [facility] Start: 03-01-2024 ambulatory ZULY BRUNO Facility: [facility] Start: 03-01-2024 End: 03-01-2024 ambulatory JOHNNA HOLLIDAY Not Available Start: 02-26-2024 ambulatory ZULY BRUNO Facility: [facility] Start: 02-26-2024 [facility] Start: 02-26-2024 End: 02-26-2024 Office outpatient new 30 minutes Candie Almaguer MD Work Phone: [facility] Comment on above: Heart failure, diast olic, acute (Primary Dx) Start: 02-25-2024 End: 02-25-2024 ambulatory FIDELINA DANIEL Not Available Start: 02-23-2024 End: 02-23-2024 ambulatory PALMA PALACIOS Not Available Start: 02-11-2024 End: 02-11-2024 ambulatory ZULY BRUNO Not Available Start: 01-16-2024 Encounter for other preprocedural examination KELVIN PACHECO [facility] Start: 01-16-2024 End: 01-23-2024 Evaluation and management of inpatient KEVIN PRINCE Facility:[facility] Start: 01-16-2024 End: 01-23-2024 Evaluation and management of inpatient Kevin Prince MD Work Phone: [id number] Comment on above: Pleural effusion on right Start: 01-16-2024 End: 01-23-2024 Patient encounter status Kevin Prince MD Work Phone: [facility] Work Phone: Start: 01-12-2024 End: 01-12-2024 ambulatory Angel Fete RPh,PharmD Pharmacy Outpatient [facility] Start: 01-12-2024 End: 01-12-2024 Patient encounter procedure Angel Fete RPh,PharmD Pharmacy Outpatient [facility] [place] Start: 01-08-2024 Clinisync Result Encounter Generic External Data Provider [facility] External Department Unsolicited Start: 01-08-2024 Clinisync Result Encounter Generic External Data Provider [facility] External Department Unsolicited Start: 01-06-2024 End: 01-06-2024 ambulatory ZULY MYRICKZ Not Available Start: 01-06-2024 End: 01-06-2024 Office outpatient visit 25 minutes Zuly Tannerlatishaomer MUSIC MANAGER Work Phone: [facility] Comment on above: Bilateral lower extr emity edema (Primary Dx); 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); Atherosclerosis 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); Obesity (BMI 30-39.9); DARLENE (obstructive sleep apnea); Tremor; Immunocompromised (CMS/HCC); Primary hypertension ([facility]/HCC); Shortness of breath Start: 01-01-2024 Clinisync Result Encounter Generic External Data Provider [facility] External Department Unsolicited Start: 01-01-2024 Clinisync Result Encounter Generic External Data Provider [facility] External Department Unsolicited Start: 11-03-2023 End: 11-03-2023 ambulatory ZULY TANNERHOLZ Not Available Start: 10-06-2023 ambulatory Angel Fete RPh,PharmD Pharmacy Outpatient [facility] Start: 10-06-2023 Patient encounter procedure Angel Fete RPh,PharmD Pharmacy Outpatient [facility] [place] Start: 09-29-2023 [facility] Start: 09-24-2023 [facility] Start: 09-23-2023 ambulatory HAKEEM ALAMO Facility :[facility] Start: 09-15-2023 ambulatory [facility] Start: 08-28-2023 End: 09-11-2023 Evaluation and management of inpatient KEVINCHLOE PRINCE Facility:[facility] Start: 08-28-2023 End: 09-11-2023 Evaluation and management of inpatient Steve LEIGH Work Phone: [id number] Start: 08-28-2023 ambulatory STEVE S YEISON Facility:[facility] Start: 08-28-2023 End: 08-28-2023 Office outpatient visit 25 minutes Steve LEIGH Work Phone: [facility] Comment on above: Immunosuppressed sta tus (Primary Dx); Kidney replaced by transplant; Aftercare following organ transplant; High risk medication use; Other general symptoms and signs; Abnormal blood chemistry; Hypertension secondary to other renal disorders Start: 08-19-2023 ambulatory Meka rueda [facility] Pharmacy Outpatient [facility] [place] Start: 08-19-2023 Patient encounter procedure Meka Munoz [facility] Pharmacy Outpatient RX [facility] Start: 06-12-2023 ambulatory SELF SELF Facility:[facility] Start: 06-12-2023 End: 06-12-2023 Office outpatient visit 25 minutes Steve LEIGH Work Phone: [facility] Comment on above: 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) Start: 06-10-2023 ambulatory Marennoah Bar RPh,PharmD Pharmacy Outpatient [facility] Start: 06-10-2023 Patient encounter procedure Maren Dipika RPh,PharmD Pharmacy Outpatient [facility] Start: 05-26-2023 ambulatory ZULY BRUNO Facility: [facility] Start: 04-28-2023 End: 04-29-[address] DOCTOR EVANS Facility: Start: 04-13-2023 End: 04-13-2023 ambulatory [facility] Start: 03-12-2023 ambulatory Angel Madsene RPh,PharmD Pharmacy Outpatient [facility] [place] Start: 03-12-2023 Patient encounter procedure Angel Madsene RPh,PharmD Pharmacy Outpatient [facility] Start: 03-10-2023 ambulatory Angel Fete RPh,PharmD Pharmacy Outpatient [facility] Start: 03-10-2023 Patient encounter procedure Angel Madsene RPh,PharmD Pharmacy Outpatient [facility] [place] Start: 03-02-2023 End: 03-03-[address] DOCTOR EVANS Facility: Start: 01-16-2023 End: 01-16-2023 Office outpatient visit 25 minutes Daisha Max DO Work Phone: [facility] Comment on above: Abnormal blood [...] MD Work Phone: [facility] Comment on above: BPH with obstruction /lower urinary tract symptoms (Primary Dx); Encounter for screening for malignant neoplasm of prostate Start: 08-28-2022 End: 08-29-2022 ambulatory ROB HOBSONA KIANA Facility:[facility] Start: 08-14-2022 End: 08-15-[address] DOCTOR EVANS Facility:[facility] Start: 07-07-2022 End: 07-07-2022 Patient encounter procedure Ryan Yepez MD Work Phone: [facility] Comment on above: Other hydronephrosis (Primary Dx); [...] MD Work Phone: [facility] Comment on above: Other hydronephrosis (Primary Dx) [...] [facility] Comment on above: Immunosuppressed sta [...] 05-15-2022 End: 05-15-[address] GEORGE LAWRENCE Facility: Start: 05-11-2022 End: 05-11-[address] GEORGE LAWRENCE Facility:[facility] Start: 03-14-2022 ambulatory Comfort Rivera [facility] Work Phone: Pharmacy Outpatient RX [facility] Start: 03-14-2022 Patient encounter procedure Comfort Rivera [facility] Work Phone: Pharmacy Outpatient RX Yanci Start: 06-14-2021 End: 06-14-2021 ambulatory Comfort Rivera [facility] Work Phone: [facility] Start: 06-14-2021 Patient encounter procedure Comfort Rivera [facility] Work Phone: [facility] Start: 01-20-2020 End: 01-27-2020 Patient encounter procedure PEPE CASE Facility:[facility] Start: 01-06-2020 End: 01-07-2020 Patient encounter procedure RENA GUDINO [facility] Start: 01-06-2020 End: 01-06-2020 Subsequent hospital visit by physician [facility] Start: 10-24-2019 End: 10-25-2019 Patient encounter procedure TANA CAMPA [facility] Start: 10-24-2019 End: 10-24-2019 Subsequent hospital visit by physician [facility] Start: 08-27-2019 End: 08-28-2019 Patient encounter procedure RENA GUDINO [facility] Start: 08-27-2019 End: 08-27-2019 Subsequent hospital visit by physician [facility] Start: 08-08-2019 End: 08-09-2019 [facility] Start: 08-08-2019 End: 08-08-2019 Subsequent hospital visit by physician [facility] Start: 08-03-2019 End: 08-04-2019 Patient encounter [facility] Start: 08-03-2019 End: 08-03-2019 Subsequent hospital visit by physician [facility] Start: 08-01-2019 End: 08-02-2019 [facility] Start: 08-01-2019 End: 08-01-2019 Subsequent hospital visit by physician [facility] Start: 06-10-2019 End: 06-11-2019 Patient encounter procedure RENA GUDINO [facility] Start: 06-01-2019 End: 06-02-2019 Patient encounter procedure RENA GUDINO [facility] Start: 01-14-2019 End: 01-15-2019 [facility] Start: 11-17-2018 End: 11-17-2018 Patient encounter procedure Fidelina Pierson [facility] Transplant [place] Pre Transplant Office Comment on above: Social Work Follow-u p Start: 10-19-2018 End: 10-19-2018 Patient encounter Autumn Rooney [facility] Pre Transplant Office Comment on above: Cirrhosis of liver w ithout ascites, unspecified hepatic cirrhosis type (Primary Dx) Start: 10-19-2018 End: 10-19-2018 Office outpatient visit 25 minutes Christin Elizabeth Work Phone: Division of Gastroenterology and Hepatology Gavin Comment on above: Alcoholic cirrhosis of liver without ascites (Primary Dx); Pre-transplant evaluation for liver transplant; Hepatic encephalopathy Start: 10-13-2018 End: 10-13-2018 Patient encounter procedure Autumn Rooney [facility] Pre Transplant Office Comment on above: Reschedule Outside Medical Allan rds Request Start: 10-12-2018 End: 10-12-2018 Patient encounter procedure Sophie Cary [facility] Pre Transplant Office Comment on above: Alcoholic cirrhosis, unspecified whether ascites present (Primary Dx); Pre-transplant evaluation for liver transplant Start: 10-12-2018 End: 10-12-2018 Office outpatient new 60 minutes Dax Tray Restrepo Work Phone: [facility] Pre Transplant Office Comment on above: Alcoholic cirrhosis, unspecified whether ascites present; ESRD (end stage renal disease) on dialysis; Pre-transplant evaluation for liver transplant Start: 10-06-2018 End: 10-06-2018 Patient encounter procedure Yovani Orr Work Phone: Department of Radiology Comment on above: Canceled (Insurance Company Redirected Pt) Start: 10-05-2018 Patient encounter status Comfort Rivera [facility] Work Phone: [facility] Procedures Date Procedure Procedure Detail Performing Clinician Start: 01-23-2024 Glucose measurement, blood Kelvin Pacheco MD, LU Work Phone: Start: 01-23-2024 Glucose measurement, blood Kelvin Pacheco MD, MBBS Work Phone: Start: 01-23-2024 Assay of magnesium [...] above: Performed By: #### X M ####[facility] (DEFAULT)[address] [place] [address] Start: 01-22-2024 Assay of magnesium Just in [...] Start: 01-20-2024 ITRACONAZOLE LEVEL Jennifer norbert Alarcon [facility] Work Phone: Start: 01-20-2024 Oscillating positive expiratory [...] Iadna nos quantifica tion each organism Fidelina Alarcon [facility] Work Phone: Start: 01-18-2024 Echocardiography ZULY VANG Start: 01-18-2024 Echo tthrc r-t 2d w/wom-mode [...] AURIS SCREEN BY PCR Carol Ann Capps CHIEF JAILER-CRUSHER AND BINDER OPERATOR Work Phone: Start: 01-08-2024 ALL CBC WITH [...] AURIS SCREEN BY PCR Carol Ann Capps CHIEF JAILER-CRUSHER AND BINDER OPERATOR Work Phone: Start: 08-28-2023 CBC AND [...] above: Performed By: #### C MP #### [facility] [address] [place] [address] Dr. Dwight Waters Start: 07-07-2022 Rmvl nfros [...] liver recipient S/P liver trans plant Comfort Miguel [facility] Work Phone: Start: 04-08-2020 H/O: liver recipient Liver tra nsplant recipient Comfort Miguel [facility] Work Phone: Start: 01-06-2020 Potassium serum plasma/whole blood ROB KASMANI Start: 01-06-2020 Potassium serum plasma/whole blood Rena Rist Work Phone: Start: 10-24-2019 HEMOGLOBIN AND HEMAT OCRIT, BLOOD ROB KASMANI Start: 10-24-2019 Blood count hemoglobin Tana Campa Work Phone: Start: 09-20-2019 Colonoscopy Generic Pr [...] De ceased-donor kidney transplant recipient Comfort Rivera [facility] Work Phone: Start: 06-10-2019 HEMOGLOBIN AND HEMAT OCRIT, BLOOD ROB KASMANI Start: 06-01-2019 Blood count hemoglobin ROB KASMANI Start: 03-22-2019 Lipid 1996 panel - S fabricio or Plasma Comfort Rivera [facility] Work Phone: Start: 01-14-2019 Potassium [...] 10-12-2018 Hepatitis a antibody haab Yovani Mejias [employer] Work Phone: Start: 10-12-2018 End: 10-12-2018 Hepatitis b core antibody hbcab total Yovani Mejias [employer] Work Phone: Start: 10-12-2018 End: 10-12-2018 Hepatitis b surf antibody hbsab Yovani Mejias [employer] Work Phone: Start: 10-12-2018 End: 10-12-2018 Hepatitis c antibody Yovani Mejias [employer] Phone: Start: 10-12-2018 End: 10-12-2018 Iaad ia hepatitis b surface antigen Yovani Mejias [employer] Work Phone: Start: 10-12-2018 End: 10-12-2018 Iaad ia hiv-1 ag w/hiv-1 & hiv-2 antbdy single Yovani Orr [employer] Phone: Start: 10-12-2018 End: 10-12-2018 PSA screening Yovani Mejias [employer] Phone: Start: 10-12-2018 End: 10-12-2018 Thromboplastin time partial plasma/whole blood Yovani Orr Work Phone: Start: 10-12-2018 End: 10-12-2018 Assay of ethanol Yovani Mejias [employer] Phone: Start: 10-12-2018 End: 10-12-2018 Drug/substance definitive qual/quant nos 7/more Yovani Orr [employer] Phone: Start: 10-12-2018 End: 10-12-2018 Protein total [...] transplant Kidn ey replaced by transplant Daisha Tray Sobotka DO Work Phone: History of renal transplant Kidn ey replaced by transplant Steve Munoz MBBS Work Phone: History of renal transplant Kidn ey replaced by transplant Steve MORENOBS Work Phone: History of renal transplant Dece ased-donor kidney transplant recipient Steve MORENOBS Work Phone: Plan of Treatment Date Care Activity Detail Author Start: 09-20-2029 Screening for malignant neoplasm of colon [facility] Start: 02-28-2025 Potassium [Moles/volume] in Serum or Plasma POTASSIUM [facility] Start: 01-23-2025 Potassium [Moles/volume] in Serum or Plasma POTASSIUM [facility] Start: 08-31-2024 Screening for malignant neoplasm of lung [facility] Start: 06-17-2024 End: 06-17-2024 ambulatory [facility] Transplant [facility] Start: 06-17-2024 End: 06-17-2024 Patient encounter procedure [facility] Start: 03-22-2024 Fasting lipid profile LIPID SCREENING [facility] Start: 03-22-2024 Lipid panel [facility] Start: 02-26-2024 End: 02-26-2024 Patient encounter procedure 02/26/2024 9:30 AM EDT Office Visit [facility] [address] [place] [phone] Candie Almaguer MD [address] [place] [address] [phone] [facility] Start: 02-11-2024 End: 02-11-2024 Patient encounter procedure 02/11/2024 10:30 AM EDT Office Visit [facility] [address] [place] [address] Zuly Bruno, BA [address] [place] [phone] [facility] Start: 02-09-2024 End: 02-09-2024 Telemedicine consultation with patient 02/09/2024 3:30 PM EDT Telemedicine Infectious Diseases Care [facility] [address] [phone] Hakeem Alamo MD [address] [place] [address] Infect[facility] Start: 01-15-2024 End: 01-15-2024 ambulatory [facility] Transplant [facility] Start: 01-15-2024 End: 01-15-2024 Patient encounter procedure [facility] Start: 01-06-2024 End: 01-06-2026 Echocardiogram 2D complete Echocardiogram 2D complete Echocardiography Routine DARLENE (obstructive sleep apnea) Primary hypertension (CMS/HCC) Bilateral lower extremity edema Shortness of breath Expected: 01/06/2024 (Approximate), Expires: 01/06/2026 [facility] Work Phone: Comment on above: Expected: 01/06/2024 (Approximate), Expi res: 01/06/2026 Start: 01-06-2024 End: 01-06-2024 Patient encounter procedure 01/06/2024 9:00 AM EST Office Visit [facility] [address] [place] [phone] Zuly Bruno, BA [address] [place] [phone] [facility] Start: 12-08-2023 End: 09-07-2024 CT Chest WO contrast [facility] Work Phone: Start: 12-01-2023 COVID-19 VACCINE (2 - Moderna risk series) COVID-19 VACCINE (2 - Moderna risk series) [facility] Start: 09-23-2023 End: 09-23-2023 ambulatory [facility] Start: 09-23-2023 End: 09-23-2023 Telemedicine consultation with patient 09/23/2023 4:00 PM EDT Telemedicine Infectious Diseases Care [facility] [address] [facility] [address] [place] [address] Hakeem Alamo MD [address] [facility] [address] [place], [place] [phone] Infectious Diseases Care [facility] Start: 09-15-2023 End: [...] procedure 06/12/2023 Office Visit Transplant Surgery Steve Munoz MBBS [address] [place] [address] [facility] Transplant [facility] Start: 03-11-2023 End: 03-11-2023 Telemedicine consultation with patient 03/11/2023 Telemedicine Urology Ryan Yepez MD [address] [place] [address] [facility] [place] Start: 01-16-2023 End: 01-16-2023 Patient encounter procedure 01/16/2023 Office Visit Transplant Surgery [facility] Transplant [facility] Start: 10-31-2022 End: 10-31-2022 Patient encounter procedure 10/31/2022 Office Visit Transplant Surgery Steve Munoz, JOSHBS [address] [place] [phone] [facility] Transplant [facility] Start: 09-10-2022 End: 09-10-2023 PSA screening PSA, SCREENING Lab Routine BPH with obstruction/lower urinary tract symptoms Encounter for screening for malignant neoplasm of prostate Expected: 09/10/2022 (Approximate), Expires: 09/10/2023 [facility] Comment on above: Expected: 09/10/2022 (Approximate), Expi res: 09/10/2023 Start: 08-11-2022 End: 08-11-2022 Patient encounter procedure 08/11/2022 Office Visit Urology Ryan Yepez MD [address] [place] [phone] [facility] [place] Start: 07-31-2022 Influenza vaccination [facility] Start: 07-07-2022 End: 07-07-2022 Patient encounter procedure 07/07/2022 Office Visit Ryan Webster MD [address] [place] [address] [facility] [place] Start: 07-07-2022 End: 07-07-2023 FLUORO IMAGING FOR UROLOGY [facility] Comment on above: Expected: 07/07/2022, Expires: 3 1 Occurrences starti ng 07/07/2022 until 07/07/2022 Start: 06-27-2022 End: 06-27-2022 Patient encounter procedure 06/27/2022 Office Visit Urology Ryan Yepez MD [address] [place] [phone] Urolog Eye [facility] [place] Start: 06-27-2022 End: 06-27-2023 Basic metabolic 2000 panel - Serum or Plasma BASIC METABOLIC PANEL Lab Routine Other hydronephrosis Expected: 06/27/2022, Expires: 06/27/2023 [facility] Comment on above: Expected: 06/27/2022, Expires: 3 Start: 06-27-2022 End: 06-27-2022 Patient encounter procedure 06/27/2022 Appointment Computerized Tomography Scan Ryan Yepez MD [address] [place] [phone] Department of Radiology Start: 06-15-2022 End: 05-16-2023 CT Abdomen and Pelvis WO contrast CT ABDOMEN/PELVIS WITHOUT CONTRAST Imaging Routine FAYE (acute kidney injury) Expected: 06/15/2022 (Approximate), Expires: 05/16/2023 [facility] Work Phone: Comment on above: Expected: 06/15/2022 (Approximate), Expi res: 05/16/2023 Start: 06-12-2022 End: 06-12-2022 Patient encounter procedure 06/12/2022 Office Visit Transplant Surgery Steve Munoz MBBS [address] [place] [address] [facility] Start: 06-11-2022 End: 06-11-2023 BK VIRUS [...] procedure 10/18/2021 Office Visit Transplant Surgery Steve Munoz, LU [address] [place] [address] [facility] Start: 07-31-2021 Influenza vaccination INFLUENZA VACCINE (#1) [facility] Start: 07-26-2021 End: 07-26-2021 Patient encounter procedure 07/26/2021 Office Visit Transplant Surgery [facility] Start: 2021 Prostate specific antigen measurement [facility] [...] Start: 07-31-2019 Influenza vaccination Flu vaccine (#1) [place], [place] Start: 05-22-2019 Annual Wellness Visit (AWV) Annual Wellness Visit (AWV) [place] Start: 04-18-2019 End: 10-19-2019 Ultrasonography of abdomen US ABDOMEN RUQ/LIVER/GB Routine Cirrhosis of liver without ascites, unspecified hepatic cirrhosis type Expected: 04/18/2019 (Approximate), Expires: 10/19/2019 [facility] Work Phone: Comment on above: Expected: 04/18/2019 (Approximate), Expi res: 10/19/2019 Start: 01-25-2019 End: 01-25-2019 Ambulatory 01/25/2019 Office Visit Gastroenterology Christin Elizabeth, CHIEF JAILER-BLOW DOWN OPERATOR [address] [place] [address] Division of Gastroenterology and Hepatology [facility] Start: 11-19-2018 End: 11-19-2018 Ambulatory 11/19/2018 Appointment [facility] Start: 11-19-2018 End: 11-19-2018 Ambulatory [facility] Start: 10-19-2018 End: 10-19-2018 Ambulatory Ultrasound Jakob Start: 10-12-2018 End: 10-12-2019 Hemoglobin A1c/Hemoglobin.total mass fraction (Bld) HEMOGLOBIN A1C Routine Alcoholic cirrhosis, unspecified whether ascites present Pre-transplant evaluation for liver transplant Expected: 10/12/2018, Expires: 10/12/2019 [facility] Work Phone: Comment on above: Expected: 10/12/2018, Expires: 9 Start: 10-12-2018 End: 10-12-2019 TYPE AND SCREEN - NOT FOR TRANSFUSION TYPE AND SCREEN - NOT FOR TRANSFUSION Routine Alcoholic cirrhosis, unspecified whether ascites present Pre-transplant evaluation for liver transplant Expected: 10/12/2018, Expires: 10/12/2019 [facility] Work Phone: Comment on above: Expected: 10/12/2018, Expires: 9 Start: 07-31-2018 Influenza vaccination INFLUENZA VACCINE (#1) [facility] Work Phone: Start: 2011 Fasting lipid profile LIPID SCREENING [facility] Work Phone: Start: 2011 Lipid screen Lipid screen [facility], [place] Start: 1990 DTaP/Tdap/Td vaccine (1 - Tdap) DTaP/Tdap/Td vaccine (1 - Tdap) [place], [place] Start: 1990 Hepatitis B vaccination HEP B VACCINE (1 of 3 - 19+ 3-dose series) [facility] Start: 1990 Hepatitis B Vaccine (1 of 3 - Risk Recombivax 3-dose series) Hepatitis B Vaccine (1 of 3 - Risk Recombivax 3-dose series) [place] Start: 1990 Third diphtheria, tetanus and acellular pertussis (DTaP) vaccination [facility] Start: 1990 Zoster vaccine hzv live for subcutaneous use ZOSTER (SHINGLES) VACCINE (1 of 2) [facility] Start: 1990 [facility] Start: 1989 Tetanus vaccination TETANUS [facility] Start: 1986 HIV screen HIV screen [place], [place] Start: 02-17-1984 HIV screening HIV SCREENING DISCUSSION [facility] Work Phone: Start: 1983 COVID-19 VACCINE (1) COVID-19 VACCINE (1) [facility] Start: 1982 DTaP/Tdap/Td vaccine (1 - Tdap) DTaP/Tdap/Td vaccine (1 - Tdap) [place] Start: 1977 Pneumococcal 0-64 years Vaccine (1 of 3 - PCV13) Pneumococcal 0-64 years Vaccine (1 of 3 - PCV13) [place] Start: 1977 PNEUMOCOCCAL VACCINE SERIES (1 - PCV) PNEUMOCOCCAL VACCINE SERIES (1 - PCV) [facility] Start: 1977 PNEUMOCOCCAL VACCINE SERIES (1 of 2 - PCV) PNEUMOCOCCAL VACCINE SERIES (1 of 2 - PCV) [facility] Start: 1977 [facility] Start: 02-17-1976 COVID-19 VACCINE (#1) COVID-19 VACCINE (#1) [facility] Start: 02-17-1976 [facility] Start: 1971 COVID-19 VACCINE (#1) COVID-19 VACCINE (#1) [facility] Start: 1971 Hepatitis B vaccination HEP B VACCINE (1 of 3 - 3-dose series) [facility] Start: 1971 Medicare Annual Wellness (AWV) Medicare Annual Wellness (AWV) [facility] Start: 1971 Screening for malignant neoplasm of colon [facility] Start: 1971 Tetanus vaccination [facility] [...] evaluation for liver transplant 10/12/2018 12:57 PM [facility] Work Phone: End: 09-10-2024 CHEM 6 (LYTES, BUN CREA) [facility] EBV VCA IGG AB EBV VCA IGG AB R outine Alcoholic cirrhosis, unspecified whether ascites present ESRD (end stage renal disease) on dialysis Pre-transplant evaluation for liver transplant 10/12/2018 12:57 PM [facility] Work Phone: Fungus identified in Unspecified specimen by Culture [facility] HLA TYPING (SOLID ORGAN) HLA TYPING (SOLID ORGAN) Routine Alcoholic cirrhosis, unspecified whether ascites present ESRD (end stage renal disease) on dialysis Pre-transplant evaluation for liver transplant 10/12/2018 12:57 PM [facility] Work Phone: HSV 1 AND 2 IGG ANTIBODY HSV 1 AND 2 IGG ANTIBODY Routine Alcoholic cirrhosis, unspecified whether ascites present ESRD (end stage renal disease) on dialysis Pre-transplant evaluation for liver transplant 10/12/2018 12:57 PM [facility] Work Phone: 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 specific culture [facility] PLACEMENT NEPHROSTOM Y CATHETER PERCUTANEOUS W/ IMAGE GUIDANCE PLACEMENT NEPHROSTOMY CATHETER PERCUTANEOUS W/ IMAGE GUIDANCE Imaging Routine Hydronephrosis due to obstruction of ureteral orifice FAYE (acute kidney injury) 05/17/2022 11:08 AM EDT [facility] IN POST VOID RESIDUAL IN POST VO ID RESIDUAL IN - OFFICE PERFORMED Routine BPH with obstruction/lower urinary tract symptoms Ordered: 09/10/2022 [facility] Comment on above: Ordered: 09/10/2022 PTH INTACT PTH INTACT Routi ne Alcoholic cirrhosis, unspecified whether ascites present ESRD (end stage renal disease) on dialysis Pre-transplant evaluation for liver transplant 10/12/2018 12:57 PM [facility] Work Phone: RUBEOLA IGG AB (IMMU NE STATUS) RUBEOLA IGG AB (IMMUNE STATUS) Routine Alcoholic cirrhosis, unspecified whether ascites present ESRD (end stage renal disease) on dialysis Pre-transplant evaluation for liver transplant 10/12/2018 12:57 PM [facility] Work Phone: End: 01-16-2024 Standard ECG ECG ECG Routine One Time for 1 Occurrences starting 01/16/2024 until 01/16/2024 [facility] Comment on above: One Time for 1 Occurrences starting 12/31 until 01/16/2024 End: 09-10-2024 TACROLIMUS LEVEL, TROUGH (PRE DRUG LEVEL) [facility] VARICELLA IGG AB (IM M STATUS) VARICELLA IGG AB (IMM STATUS) Routine Alcoholic cirrhosis, unspecified whether ascites present ESRD (end stage renal disease) on dialysis Pre-transplant evaluation for liver transplant 10/12/2018 12:57 PM [facility] Work Phone: Immunizations Immunization Date Immunization Notes Care Provider Zeeshan marquez 11-03-2023 influenza virus vacc ine, unspecified formulation Generic Provider [facility] 11-03-2023 Moderna SARS-CoV-2 50mcg/0.5mL Booster Generic Provider [facility] Payers Date Payer Category Payer Unknown [id number] 2019 Unknown [facility] [id number] 2019-Present [id number] 2018 Medicaid MEDICAID [facility] DEPT OF JOB xxxxxxxxxxxx 2018-Present [phone] [address] [place] [address] xxxxxxxxxxxx [id number] 2018 Medicaid MEDICAID MEDICAI D [id number] 2018-Present [address] [place] [address] [id number] 2018 Medicaid [id number] [id number] 2018 Medicare MEDICARE MEDICAR E PART A AND B xxxxxxxxxxx 2018-Present [phone] [address] [address] [place] [address] xxxxxxxxxxx [id number] 2018 Medicare [id number] 2018 Medicare MEDICARE MEDICAR E A AND B [id number] 2018-Present [address] [place] [address] [id number] [id number] 2018 Medicare [id number] [id number] .[id number] 1971 Unknown [id number] 2.16.840.1.461846.3.579.2.173 1971 Unknown [id number] 2.16.840.1.167896.3.579.2.173 1971 Unknown [id number] 2.16.840.1.122916.3.579.2.173 1971 Unknown [id number] 2.16.840.1.879073.3.579.2.173 1971 Unknown [id number] 2.16.840.1.793948.3.579.2.173 1971 Unknown [id number] 2.16.840.1.100833.3.579.2.173 1971 Unknown [id number] 2.16.840.1.774058.3.579.2.173 1971 Unknown [id number] 2.16.840.1.724207.3.579.2.173 1971 Unknown [id number] 2.16.840.1.307329.3.579.2.647 1971 Unknown [id number] 2.16.840.1.988321.3.579.2.593 1971 Unknown [id number] 2.16.840.1.602755.3.579.2.593 1971 Unknown [id number] 2.16.840.1.004379.3.579.2.593 1971 Unknown [id number] 2.16.840.1.560391.3.579.2.593 1971 Unknown [id number] 2.16.840.1.151251.3.579.2.593 1971 Unknown [id number] 2.16.840.1.621876.3.579.2.593 1971 Unknown [id number] 2.16.840.1.603263.3.579.2.593 1971 Unknown [id number] 2.16.840.1.135252.3.579.2.593 1971 Unknown [id number] 2.16.840.1.360832.3.579.2.593 1971 Unknown [id number] 2.16.840.1.127410.3.579.2.593 1971 Unknown [id number] 2.16.840.1.186787.3.579.2.593 1971 Unknown [id number] 2.16.840.1.685260.3.579.2.593 1971 Unknown [id number] 2.16.840.1.356979.3.579.2.593 1971 Unknown [id number] 2.16.840.1.780867.3.579.2.593 1971 Unknown [id number] 2.16.840.1.415322.3.579.2.593 1971 Unknown [id number] 2.16.840.1.959212.3.579.2.125 9 1971 Unknown [id number] 2.16.840.1.384405.3.579.2.125 9 1971 Unknown [id number] 2.16.840.1.515455.3.579.2.125 9 1971 Unknown [id number] 2.16.840.1.852211.3.579.2.125 9 1971 Unknown [id number] 2.16.840.1.727136.3.579.2.125 9 1971 Unknown [id number] 2.16.840.1.865771.3.579.2.125 9 1971 Unknown [id number] 2.16.840.1.900502.3.579.2.594 1971 Unknown [id number] 2.16.840.1.393864.3.579.2.594 1971 Unknown [id number] 2.16.840.1.119249.3.579.2.594 1971 Unknown [id number] 2.16.840.1.976451.3.579.2.594 1971 Unknown [id number] 1970 Unknown [id number] 1970 Unknown [id number] 1970 Unknown [id number] 1970 Unknown [id number] 1970 Unknown [id number] 1970 Unknown [id number] 1970 Unknown [id number] 1958 Medicaid [id number] 1958 Medicare [id number] Social History Date Type Detail Facility Start: 07-19-2018 End: 10-19-2018 Tobacco smoking status [facility] Former smoker [facility] Start: 07-19-1988 End: 05-14-2018 History of tobacco use Current smoker [facility] Work Phone: Start: 07-19-1988 End: 05-14-2018 History of tobacco use Cigarette Smoker [facility] Work Phone: Start: 10-19-2018 End: 02-26-2024 Cigarettes smoked current (pack per day) - Reported [facility] End: 07-19-1994 History of tobacco use Chews Tobacco [facility] Work Phone: Start: 1970 Sex Assigned At Not on file [facility] Work Phone: Start: 11-03-2018 Alcohol intake Current non-drinker of alcohol (finding) [place], [place] Start: 06-22-2018 Alcohol Comment Hx of alcoholism [place] Start: 11-03-2018 End: 02-26-2024 Alcohol intake No [facility] Start: 07-19-2018 Tobacco use and exposure Former user [facility] Start: 09-06-2020 End: 02-26-2024 Alcohol intake Ex-drinker (finding) [facility] Start: 07-19-2018 Alcohol Comment stopped 05/14/2018 [facility] Start: 05-05-2022 End: 01-16-2023 Exposure to SARS-CoV-2 (event) Not sure [facility] Start: 07-07-2018 Gender identity Identifies as male gender (finding) [facility] Start: 01-16-2022 Sexual orientation Heterosexual (finding) [facility] Start: 11-03-2023 Tobacco use and exposure [...] Dates [id number] Start: 05-23-2020 [id number] Start: 04-12-2020 [id number] FDA Start: 05-17-2022 Comment on above: Description: Implant time-out completed by intra-procedural staff including this RN, bmw service technician, and performing physician. The following was completed. RN reads out loud implant type/size/ expiration date, and verbalizes location. Holds package up to tech to visually verify implant details. Tech reads back package details MD verifies verbally correct implant Time-out was completed for each coil during embolization, if applicable. Goals Date Patient Goal Desired Activity /State Personal health goal Clinical Notes 06-14-2021 to 03-02-2024 Mckenna Stuart - 03/02/2024 8:14 AM Nico Gutiérrez - 03/02/2024 8:14 AM Lele Stuart - 03/02/2024 8:14 AM Blanca Mckeon RN - 02/26/2024 9:30 AM EDTPatient InstructionsAttachments Note Date & Type Note Facility 03-02-2024 History of Present illness Narrative [facility]: Call Information: Date and Time of Contact: 03/02/2024 8:14 AM Method of Contact: By Phone Contact Type: Prescriptions Contactor: Team Contactee: [facility] Contact Outcome: Patient declined to fill (myco / tacro pkts refill) Patient Declined Fill Detail/Reason: Pt has 10 d/s of myco - pt wants to wait until tacro script comes back to set up del of broth Contact Info: Specialty ([place]) [phone] [facility] [phone] [facility] [phone] David [phone] Bedside Delivery ([facility]) [phone] [facility]: Call Information: Date and Time of Contact: 03/02/2024 3:49 PM Method of Contact: By Phone Contact Type: Prescriptions Contactor: [facility] Contactee: Patient Contact Outcome: Left message and Follow-up Shipping/Pickup: Medication Name: Myco 360mg and Prograf 0.2mg Contact Info: Specialty ([place]) [phone] [facility] [phone] [facility] [phone] David [phone] Bedside Delivery ([facility]) [phone] [facility]: Call Information: Date and Time of Contact: 03/02/2024 4:08 PM Method of Contact: By Phone Contact Type: Prescriptions Contactor: [facility] Contactee: Patient Shipping/Pickup: Medicare B Refill?: No Medication Name: Myco 360 / prograf 0.2 Delivery Method: Ship Delivery Location: Home Signature Required: No Receive/Pickup Date: 03/03/2024 Shipping Address: [address] [place] [address] [address] Contact Info: Specialty ([place]) [phone] [facility] [phone] [facility] [phone] David [phone] Bedside Delivery ([facility]) [phone] documented in this encounter [facility] 02-26-2024 History of Present illness Narrative Patient Education Patient education regarding the following topic(s) was provided on 02/26/2024: plan of care . Labs today Follow up with Dr. Almaguer as needed. Those in attendance for the education included: patient. Barriers in providing the education included: none. The following methods were used in providing the education: explanation. [facility] handouts given included: After visit summary. The response of those in attendance was: states/identifies education topic. The following Clinical Intervention(s) occurred during today s visit: Orthostatic or Coarctation vital signs completed and Extensive teaching provided to patient and or support team regarding plan of care. Advanced Heart Failure / Transplant Cardiology New Patient Clinic Note George Styles is a 54 y.o. male presents to the HF Clinic at the [facility] on 02/26/2024 for initial evaluation of heart failure / cardiomyopathy. HPI 54 yo male with hx of cirrhosis / renal failure. He is post SLKT in 2019. He recently was admitted (01/16 - 01/23/24) with acute hypoxic resp failure secondary to HF. He had experienced increased dyspnea and edema for about a week prior to admsn. TTE showed LVEF 55-60%, with pericardial effusion, and concentric LVH. BNP on 01/16/24 on day of admsn was elevated at 212. RHC was done showing elevated filling pressures with some improvement with occlusion of AV fistula. His cardiac output was mildly elevated. Given these findings, he underwent ligation of the large AV fistula. He presents today for follow up. He is feeling better, but still with mild dyspnea. Past Medical History: Diagnosis Date Acute renal failure CAD (coronary artery disease) Cirrhosis Dialysis patient T, Th, Sa- Started 06/01/2018 End stage renal disease 06/01/2018 Essential hypertension, benign Hepatic encephalopathy History of blood transfusion Liver cirrhosis Past Surgical History: Procedure Laterality Date LIGATION ANGIOACCESS AVF Left 01/22/2024 Laterality: Left; Surgeon: Jyoti Bryant MD, PhD; Location: [facility] MAIN OR PLACEMENT NEPHROSTOMY CATHETER PERCUTANEOUS W/ IMAGE GUIDANCE 05/17/2022 Surgeon: Enzo Heart DO; Location: [facility] INTERVENTIONAL RADIOLOGY (VIR) LIVER TRANSPLANT, ORTHOTOPIC N/A 04/12/2020 Laterality: N/A; Surgeon: LU Palma; Location: [facility] SAME DAY SURGERY MAIN OR KIDNEY TRANSPLANT W/O OSAGE NEPHRECTOMY N/A 04/12/2020 Laterality: N/A; Surgeon: LU Palma; Location: [facility] SAME DAY SURGERY MAIN OR OTHER SURGICAL 04/2018 Right chest dialysis cather- ANGIOPLASTY OF BRACHIOCEPHALIC TRUNK OR BRANCH WITH TRANSLUMINAL BALLOON PERCUTANEOUS FOR AVF OR GRA ANKLE SURGERY Right plate in ankle EXTRACTION TOOTH Allergies Allergen Reactions Shellfish-Derived Products Swelling Patient with lip and tongue swelling. Current Outpatient Medications Medication Sig Dispense Refill Allopurinol 100 MG tablet Take 2 tablets by mouth daily. 180 tablet 3 amLODIPine 5 MG tablet Take 1 tablet by mouth daily. aspirin 81 MG Chew Tab chewable tablet Chew 1 tablet daily. Last refill from our office. Medication can be purchased over the counter going forward. 30 tablet 0 faMOTIdine 20 MG tablet Take 1 tablet by mouth 2 times daily. Gabapentin 400 MG capsule Take 1 capsule by mouth at bedtime. Itraconazole 10 MG/ML Solution Take 10 mL by mouth every 12 hours. 1200 mL 3 melatonin 3 MG tablet Take 1 tablet by mouth at bedtime as needed for Insomnia. Mycophenolate sodium (MYFORTIC) [address] tablet DR Take 1 tablet by mouth every 12 hours. 60 tablet 5 ondansetron 4 MG tablet Take 1 tablet by mouth every 8 hours as needed for Nausea / Vomiting. polyethylene glycol 17 g Pack packet Take 1 packet by mouth daily. Sulfamethoxazole-trimethoprim 800-160 MG per tablet Take 1 tablet by mouth three times a week. 36 tablet 0 Tacrolimus 0.2 MG Pack Take 0.2 mg by mouth every Thursday and Thursday. Tamsulosin HCl 0.4 MG capsule Take 1 capsule by mouth daily. 90 capsule 3 Torsemide 20 MG tablet Take 1 tablet by mouth daily. 90 tablet 0 No current facility-administered medications for this visit. Family History Problem Relation Age of Onset [...] Social History Tobacco Use Smoking status: Former Current packs/day: 0.00 Average packs/day: 1 pack/day for 29.8 years (29.8 ttl pk-yrs) Types: Cigarettes Start date: 07/19/1988 Quit date: 05/14/2018 Years since quittin.8 Smokeless tobacco: Former Types: Chew Quit date: 07/19/1994 Substance Use Topics Alcohol use: Not Currently Alcohol/week: 2.0 standard drinks of alcohol Types: 2 Cans of beer per week Comment: stopped 05/14/2018 Drug use: No REVIEW OF SYSTEMS A complete ROS was performed and negatvie except as noted in HPI above. Physical Examination BP 113/56 (BP Location: Right arm, BP Position: Standing) Pulse 65 Resp 20 Ht 1.702 m (5' 7 ) Wt 83.7 kg (184 lb 8 oz) SpO2 97% BMI 28.90 kg/m Smoking Status Former General/Constitutional: A/O x 3, NAD. HEENT: Head: Normocephalic and atraumatic. Neck: Supple, non-tender. Cardiac: no JVD. S1, S2 normal. Pulmonary/Chest: Lungs CTA bilaterally. No wheezes, rhonchi or rales noted. Abdominal: + BS, NT/ND. No hepatomegaly. No hepatojugular reflux. Extremities: No cyanosis, clubbing, or peripheral edema. Peripheral Vascular Exam: Normal radial and PT pulses. Neurological: Alert and oriented x 3. No focal neurologic deficit. Skin: Skin is warm and dry. Psychiatric: Appropriate mood and affect for clinical situation. CV and HF Medical and Device Therapy ACEI / ARB / ARNI: no Beta Ibrahima: no MRA: no SGLT2 inh: no GLP-1 Ag: no Diuretic: torsemide 20 mg qd Vasodilator: amlodipine 5 mg qd Ivabradine: no Antiarrhythmic: no Antiplt: asa 81 mg qd Antithrombotic: no Statin: no ICD: NA TAG MARKER: NA CV Test results: ECHOCARDIOGRAM 01/18/2024 (Final) Interpretation Summary Left Ventricle: Chamber size is normal. Increased wall thickness. Concentric hypertrophy. Normal global systolic function. Regional wall motion is normal. Ejection fraction is normal (55 - 60%). Right Ventricle: Chamber size is normal. Systolic function is low normal. No hemodynamically significnat valve disease. Moderate pericardial effusion. There is no evidence of tamponade. [facility] (01/20/24) Hemodynamic Summary: Baseline Hemodynamics Systemic BP 132/63/90 mmHg mRAP 12 mmHg PA 49/25/35 mmHg PA oxygen saturation 68.8% PCWP 22 mmHg Ojhn CO 7.39 L/min John CI 3.64 L/min/m2 [...] decrease in PA pressures with fistula occlusion Lab Results Component Value Date BNP 72 02/26/2024 Lab Results Component Value Date SODIUM 142 02/29/2024 POTASSIUM 3.8 02/29/2024 CHLORIDE 106 02/29/2024 CO2 25.5 02/29/2024 BUN 16 02/29/2024 CREATSERUM 1.25 02/29/2024 Lab Results Component Value Date ALT 34 02/29/2024 AST 29 02/29/2024 GGT 26 02/29/2024 ALKPHOS 147 02/29/2024 BILITOTAL 1.4 02/29/2024 BILIDIRECT 0.3 02/29/2024 Assessment HFpEF - related to structual disease (concentric LHH) which is most certainly secondary to his long hx of HTN and renal disease. - He met criteria for HFpEF on admsn with documentation of elevated cardiac filling pressures, symptoms of HF, and preserved LVEF on echo. - He is now status-post AV fistula ligation which should help with sx, and reduce filling pressures. Recommendations: - maintain current loop diuretic and VD (amlodipine) - with recurrence of HF, would then consider addition of spironolactone, and/or SGLT2 inh. I am uncertain if the kidney transplant team would consider either one of these. - Most importantly will be BP control. Candie Almaguer M.D. substation supervisor Advanced Heart Failure Program Division of Cardiovascular Medicine [facility] [email or web address] ph [phone] fax [phone] documented in this encounter [facility] 02-26-2024 Instructions Marsha Mckeon RN - 02/26/2024 9:30 AM EDT The following instructions were given today: Labs today Follow up with Dr. Almaguer as needed. Your after visit summary (AVS) is viewable in [facility] My Chart. Call RN if you have cardiac questions/concerns M-F 8 to 4:30 ; office # [phone], option 6, then option 2. Guidelines for home management: 1. Continue to monitor weight first thing each morning. 2. Report to the CHF CLINIC ([phone]) any significant weight change. Remember that weight change of 2-3 lbs. in 1 day or 5 lbs in a week is significant and likely represents changes in fluid status. 3. If you are taking a diuretic (such as lasix, demadex, bumex), you should also restrict all sodium intake to 2000 milligrams (2 grams) a day. Depending on your status, you may also be asked to restrict fluid intake to no more than 64 oz/2 Liters a day. If uncertain, ask the nurse or physician. 4. Regular aerobic exercise is encouraged 30 minutes a day (walking, bike, swimming, etc.). For specific exercise recommendations, ask your physician. 5. Report to CHF CLINIC any change in symptoms (chest pain, worsening shortness of breath, increased dizziness or passing out, increased palpitations or ICD shock, trouble catching breath while lying down, increased edema or abdominal bloating). Remember that even minor changes in symptoms may be important. Also report any changes in medications including over the counter medications. 6. DO NOT take NSAID's for pain (i.e, Advil, Aleve, Motrin, ibuprofen, and many more) since these may cause serious problems in those with a history of CHF. If uncertain about the medication, call us. 7. * If you have new significant or ongoing diarrhea or vomiting, please hold your diuretic (examples: furosemide/Lasix or torsemide/Demadex) and call our clinic for further instructions. Taking a diuretic (water pill) with these symptoms can worsen dehydration. If you decide to have labs/tests run outside of the [facility] and you do not hear from us 1-2 days after they are performed, you must call us to ensure we received the results. Office fax # [phone]. No news does not necessarily mean that your tests are normal, it could mean we did not get the results. For questions/updates: please provide your name with spelling, date of and question or update All calls are prioritized and responses researched, if possible, prior to calls being returned. Call Scheduling for any appointment/procedure verification or changes [phone], option 7 or [facility] Heart Schedulers at [phone], option 1. documented in this encounter [facility] 01-23-2024 Nurse Note Jakob wrap & kerlix [...] to transport home on home oxygen supply. [facility] 01-23-2024 Miscellaneous Notes Jakob wrap & [...] Pain): verbalization of pain descriptors George Styles ([id number]) PRE OPERATIVE DIAGNOSIS High output congestive heart failure [I50.83] POST OPERATIVE DIAGNOSIS Post-Op Diagnosis Codes: * High output congestive heart failure [I50.83] PROCEDURE PERFORMED Procedure(s) (LRB): LIGATION ANGIOACCESS AVF (Left) Resection of large aneurysmic vein PRIMARY CLOSURE Yes INTRAOPERATIVE FINDINGS No significant abnormalities SURGEON Surgeons and Role: * Amer Rajab, MD, PhD - Primary ANESTHESIOLOGIST Anesthesiologist: Celena Tiwari MD; Kehinde Gutierrez MD MANAGER DISASTER RECOVERY: David Jasso APRN-MANAGER DISASTER RECOVERY Director Of Special Education Assisting: Mnii Khan MD SURGICAL STAFF Commercial Collector: Zoila Lawrence RN Relief Commercial Collector: Marimar Saravia RN Relief Scrub: Briseyda Self Scrub Person: Cinda aMi RN Resident Assisting: Leonel Harris DO Fellow: Miki Mcgowan MD, LU COMPLICATIONS None ESTIMATED BLOOD LOSS Minimal SPECIMENS No specimen sent * No specimens in log * Jyoti Bryant MD, PhD January 22, 2024 1:34 PM Arrived to PACU assisted by anesthesiology. Connected to monitors. Turned side to side, OR linens removed, repositioned. Airway patent, patient breathing easily. Report received from surgical supply assistant and report received from anesthesiology. Pt [...] Axillary block. SURGEON(S): Jyoti Bryant MD, PHD CARBURIZER: Mynor Fall MD ESTIMATED BLOOD LOSS: Minimal. [...] Jyoti Bryant MD, PHD ATTENDING SHANNON/Constanza JOB: [id number] DOC: [id number] Patient has been asleep this shift. He [...] overnight coverage, Jasper Gastelum MD, via pager #[phone] Pt- George Styles. Sarah 1082. TM1. Was wondering if he can have his Melatonin order increased to 6mg. Per pt, he usually takes 8mg at home. -SAMI Duffy #[phone] Tati Charles RN Internal Medicine Daily Progress Note Patient: George Styles, 1970, [id number] Physician: Arelis Mera MD, PGY3, Pager #[phone], TM1 service Assessment/Plan: George Styles is a [...] home amlodipine 5mg CAD: non-obstructive CAD on [facility] 2018. - continue home aspirin [...] MD Mr. Styles was admitted to [address] [place] [address]. On admission to R10, from outside facility a dual RN initial assessment of skin condition was performed by Izzy Gutierrez RN and Leroy Singleton RN. Skin Assessment: Skin within defined limits:Yes Jose Score: 20 Wound Vision Emergency Room Orderly images obtained: No LDA Added: No Based [...] documented in this encounter [facility] 01-23-2024 Nurse Note Home Oxygen Qualification [...] at 4L of oxygen is also required.) [facility] 01-23-2024 History of Present illness Narrative [...] mg Oral Daily Kelvin Pacheco MD, MBBS university professor Transplant nephrology Surgery Post-Op Check Note [...] monitor Leonel Harris DO General Surgery Pager [phone] CM went to bedside to talk with patient. Patient states he has home oxygen through [employer]. He uses 2.5 LNC around the clock. Patient states his brother will bring a tank for discharge. Anticipate patient will discharge tomorrow AM. Brother updated. Girish Oro RN, BSN Clinical Hydrography Teacher Please note that I am a float community case manager and may not cover the same service every day. Please call the main Case Management office at [phone] for up-to-date coverage. Verified patients identity using [...] Daily Progress Note Patient: George Styles, 1970, [id number] Physician: Yury Ozuna MD, PGY1, Pager #[phone], TM1 service Assessment/Plan: George Styles is a 53 y.o. 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 Acute Hypoxic Respiratory Insufficiency - resolved High Output Cardiac Failure / Fistula Patient previously required 3-4L NC only [...] by transplant surgery on 01/22 (NPO at co, updated type & screen) S/p Liver-Kidney Transplant [...] home amlodipine 5mg CAD: non-obstructive CAD on [facility] 2018. - continue home aspirin [...] with the Nutrition plan outlined in the Classifier Tender s note. DVT prophylaxis with lovenox Diet [...] AVF: Associated attestation - Kelvin Pacheco MD, MBBS - 01/21/2024 4:20 PM EST Patient seen and examined at bedside today during multidisciplinary rounds with medicine residents and pharmacy, charts reviewed, laboratory parameters reviewed. Agree with plan of care as mentioned in resident note. Kelvin Pacheco MD, MBBS university professor Transplant nephrology Patient seen and examined [...] Oral BID AC Kelvin Pacheco MD, MBBS university professor Transplant nephrology Images from the original note were not included. Internal Medicine Daily Progress Note Patient: George Styles, 1970, [id number] Physician: Yury Ozuna MD, PGY1, Pager #[phone], TM1 service Assessment/Plan: George Styles is a [...] home amlodipine 5mg CAD: non-obstructive CAD on [facility] 2018. - continue home aspirin [...] with the Nutrition plan outlined in the Classifier Tender s note. DVT prophylaxis with lovenox Diet [...] No new concerns this morning. Objective: Vitals: 01/20/24805 BP: 140/66 Pulse: 54 Resp: 14 Temp: 97.6 F (36.4 C) SpO2: 94% O2 Device: room air (01/20/24805) Flow (L/min): 2 (01/19/24 0900) Gen: NAD [...] Bun/Creat/Cl/CO2/Glucose: 15/1.12/105/28/88 (01/20 611) Ptt/Pt/Inr: 30.6/15.5/1.2 (01/20 06) Doppler US HOLLOWAY AVF: Associated attestation - Kelvin Pacheco MD, [...] Provider: Zuly Bruno NP [facility]: [facility] Other Comments: Patient reported his Last Home Dose of mycophenolate and tacrolimus was on 01/15/24 at 0700. Medications that need removed from Outside Medication Reconciliation list: Please remove all medications. Please feel free to contact me with any further questions. Name: Heidy Chatman Phone #: [phone] Date/Time: 01/19/2024 12:08 PM Time Spent: 15 minutes Associated attestation - Fidelina Alarcon RPH - 01/19/2024 12:41 PM EST Department of Pharmacy Admission Medication Reconciliation Note Patient: George Styles Room/Bed: 1082/A I have reviewed the home medication list with the Manager Medicaid. The home medication list status is: complete. All changes to the home medication list have been updated in [facility]. Updated TRIPLE VALVE TESTER Med List: Prior to Admission Medications Prescriptions [...] me with any further questions. Name: Fidelina Ortiz Dorian [facility] Phone #: [phone] Date/Time: 01/19/2024 12:41 PM Internal Medicine Daily Progress Note Patient: George Styles, 1970, [id number] Physician: Yury Ozuna MD, PGY1, Pager #[phone], IO2 service Assessment/Plan: Acute Hypoxic Respiratory Insufficiency GARCIA, [...] home amlodipine 5mg CAD: non-obstructive CAD on [facility] 2019. - continue home aspirin [...] with the Nutrition plan outlined in the Classifier Tender s note. DVT prophylaxis with lovenox Diet [...] mg Oral Daily Kelvin Pacheco MD, MBBS university professor Transplant nephrology Internal Medicine Daily Progress Note Patient: George Styles, 1970, [id number] Physician: Yury Ozuna MD, PGY1, Pager #[phone], FV3 service Assessment/Plan: Updates: - continued diuresis with [...] home amlodipine 5mg CAD: non-obstructive CAD on [facility] 2018. - continue home aspirin [...] with the Nutrition plan outlined in the Classifier Tender s note. DVT prophylaxis with lovenox Diet [...] 315) Associated attestation - Kelvin Pacheco MD, MBBS - 01/18/2024 4:20 PM EST Patient seen and examined at bedside today during multidisciplinary rounds with medicine residents and pharmacy, charts reviewed, laboratory parameters reviewed. Agree with plan of care as mentioned in resident note. Kelvin Pacheco MD, MBBS university professor Transplant nephrology Pt known to special education resource room teacher from previous admissions. Provided emotional and spiritual support. Patient shared about: family support, medical course Draw In Hand provided: - Supportive presence - Active listening - Validation of feelings/emotions Patient encouraged to request a special education resource room teacher as needed. Chaplains are available in-house 24 hours a day and 7 days a week. For urgent matters in [facility], please page [phone]. If the request is not urgent, please enter a consult. Consults are responded to within 24 hours. Senior Staff Draw In Hand Angie Singh Mdiv, [facility] Kirk [phone] [email or web address] On-call TYLOR: physically impaired teacher David: 22/06 Pager ,[facility], and Brock Hernandez Pager [phone] 01/18/24 1342 Clinical Encounter Type Visited With Patient Visit Type Introduction Pastoral Time Spent 15 min Referral Other (See Comment) (rounding) Spiritual Assessment Emotional Observation Coping well;Anxiety Hope Observation Specific hope focus Support Observation By Family Interventions Provided Active listening;Supportive presence Facilitated Verbalization of feelings;Identifying support system;Identifying Sources of spiritual well-being Explored Expectations;Treatment decisions Trade Recruiter Education Trade Recruiter Service Available Yes Educated Patient Outcomes Patient [...] for any potential drug interaction. Name: Fidelina AlarconMOJGAN Phone #: [phone] Date/Time: 01/18/2024 9:56 AM Discharge Planning Patient Assessment Admission Assessment Patient Assessment Completed: Initial Anticipated discharge disposition: Home Reason for Admission: sob Is the patient able to participate in the assessment?: Yes Information source: Patient Information Source Name/Contact: George Jensen Demographics Verified and Updated: Yes Has the [...] Yes Name and Contact information: Gian Styles ([phone]) Would you like to add additional adult [...] CNP as PCP - General Evan White, as Infectious Disease (Infectious Disease) Dr Perrin transplant Dr [place]-Infectious disease Environment/Caregivers Is the patient from a facility or care home?: No Patient lives with: Alone Living Environment: [...] oxygen?: Yes Oxygen Provider and Contact : Top Hat Liter-Flow?: Order for oxygen use?: unknown at [...] patient on Anticoagulation? 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 : No Employed?: Disabled Coping/Stress Concerns about patient s coping and stress?: No Concerns about patient s caregiver s coping and stress?: No Values and Beliefs Cultural or protestant practices that may impact discharge planning and/or [...] Plan 1. 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 2. Confirmed and updated demographics and treatment team. 3. Hydrography Teacher will continue to follow with medical team for any other additional discharge needs. Kasandra DON RN [facility] [phone] *Please note I am float and work Thursday and Thursday every other week. Please call [phone] for assist in my absence. Internal Medicine Daily Progress Note Patient: George Styles, 1970, [id number] Physician: Yury Ozuna MD, PGY1, Pager #[phone], TM1 service Assessment/Plan: Updates: - continue diuresis [...] volume overload as etiology, discontinue CTPE and JNESEN duplex Holding off on antibiotics given no [...] home amlodipine 5mg CAD: non-obstructive CAD on [facility] 2018. - continue home aspirin [...] Finally, ordered 2D echo. Kevin Prince MD, FASN Architectural Inspector of Clinical Medicine [facility] documented in this encounter [facility] 01-23-2024 Plan of care note Patient [...] Symptoms (Acute Pain): verbalization of pain descriptors [facility] 01-22-2024 Hospital Discharge instructions Arelis Mera [...] your doctor for further instructions. Please call [phone], Option 1 or [phone] to schedule your appointment with the Heart Failure Clinic. Arelis Mera MD - 01/22/2024 3:08 PM EST You can change your dressing 48 hours from the procedure The following attachments cannot be sent through Care Everywhere.Heart Failure: Avoiding Triggers (Greenlandic)Heart Failure: Limiting Sodium (Greenlandic)Pain and Pain Control ([facility]) (Greenlandic)documented in this encounter [facility] 01-22-2024 Surgery Postoperative evaluation and management note George Styles ([id number]) PRE OPERATIVE DIAGNOSIS High output congestive heart failure [I50.83] POST OPERATIVE DIAGNOSIS Post-Op Diagnosis Codes: * High output congestive heart failure [I50.83] PROCEDURE PERFORMED Procedure(s) (LRB): LIGATION ANGIOACCESS AVF (Left) Resection of large aneurysmic vein PRIMARY CLOSURE Yes INTRAOPERATIVE FINDINGS No significant abnormalities SURGEON Surgeons and Role: * Jyoti Bryant MD, PhD - Primary ANESTHESIOLOGIST Anesthesiologist: Celena Tiwari MD; Kehinde Gutierrez MD MANAGER DISASTER RECOVERY: David Jasso APRN-MANAGER DISASTER RECOVERY Director Of Special Education Assisting: Mini Khan MD SURGICAL STAFF Commercial Collector: Zoila Lawrence RN Relief Commercial Collector: Marimar Saravia RN Relief Scrub: Briseyda Self Scrub Person: Cinda Mai RN Resident Assisting: Leonel Harris DO Fellow: Miki Mcgowan MD, MBBS COMPLICATIONS None ESTIMATED BLOOD LOSS Minimal SPECIMENS No specimen sent * No specimens in log * Jyoti Bryant MD, PhD January 22, 2024 1:[facility]: 01-22-2024 Nurse Note Arrived to PACU assisted by anesthesiology. Connected to monitors. Turned side to side, OR linens removed, repositioned. Airway patent, patient breathing easily. Report received from surgical supply assistant and report received from anesthesiology. Pt arrived awake. VSS. Sats slightly low. Pulm rehab used. Sats currently 3lpm @ 93%. Pt states he uses CPAP nocturnally. A&Ox4. Nerve block left arm, elevated. [facility] 01-22-2024 Surgery Postoperative evaluation and management [...] Axillary block. SURGEON(S): Jyoti Bryant MD, PHD CARBURIZER: Mynor Fall MD ESTIMATED BLOOD LOSS: Minimal. [...] Jyoti Bryant MD, PHD ATTENDING SHANNON/Constanza JOB: [id number] DOC: [id number] [facility] 01-22-2024 Plan of care note Patient [...] 1939 Plan Of Care Reviewed With: patient [facility] 01-20-2024 Consult note Associated Order (s): IP CONSULT TO SURGERY - TRANSPLANT (RENAL) Images from the original note were not included. TRANSPLANT SURGERY CONSULT NOTE: Consult: 01/20/2024, 4:03 PM Gage Maker: Starla Morris MD Reason for Consult: Requesting Dr Carson Bryant for AVF revision/closure given new onset high output heart failure George Styles is a 53 y.o. male CURRENT HOSPITALIZATION LOS: Admit Date: 01/16/2024 [facility] Hospital LOS: 4 days George Styles is [...] 05/17/2022 Surgeon: Enzo Heart DO; Location: [facility] INTERVENTIONAL RADIOLOGY (VIR) LIVER TRANSPLANT, ORTHOTOPIC N/A 04/12/2020 Laterality: N/A; Surgeon: LU Palma; Location: [facility] SAME DAY SURGERY MAIN OR KIDNEY TRANSPLANT W/O OSAGE NEPHRECTOMY N/A 04/12/2020 Laterality: N/A; Surgeon: LU Palma; Location: [facility] SAME DAY SURGERY MAIN OR OTHER SURGICAL [...] -- 2 Hemodialysis Peripheral AV Access 04/09/20 013 HEMODIALYSIS USE ONLY;Hemodialysis 04/09/20 0139 -- 1381 [...] Studies: Labs-CBC: WBC/Hgb/Hct/Plts: 3.79/12.5/38.9/166 (01/20 611) Labs-Chem 7([facility]): Bun/Creat/Cl/CO2/Glucose: 15/1.12/105/28/88 (01/20 611) Na/K+/Phos/Mg/Ca: 141/3.8/--/1.6/-- (01/20 [...] seen and staffed with Dr. Mcgowan fellow medical collections Thank you, Starla Morris MD Associated attestation - Jyoti Bryant MD, PhD - 01/22/2024 10:54 AM EST I. Jyoti Bryant MD, PhD, have independently seen and examined the patient, reviewed the labs, discussed the patient with the fellow/resident and agree with the note. [facility] Work Phone: 01-20-2024 Consult note Associated Order (s): IP CONSULT TO SURGERY - TRANSPLANT (RENAL) Images from the original note were not included. TRANSPLANT SURGERY CONSULT NOTE: Consult: 01/20/2024, 4:03 PM Gage Maker: Starla Morris MD Reason for Consult: Requesting Dr Carson Bryant for AVF revision/closure given new onset high output heart failure George Styles is a 53 y.o. male CURRENT HOSPITALIZATION LOS: Admit Date: 01/16/2024 [facility] Hospital LOS: 4 days George Styles is [...] DAY SURGERY MAIN OR KIDNEY TRANSPLANT W/O OSAGE NEPHRECTOMY N/A 04/12/2020 Laterality: N/A; Surgeon: LU [...] Studies: Labs-CBC: WBC/Hgb/Hct/Plts: 3.79/12.5/38.9/166 (01/20 611) Labs-Chem 7([facility]): Bun/Creat/Cl/CO2/Glucose: 15/1.12/105/28/88 (01/20 611) Na/K+/Phos/Mg/Ca: 141/3.8/--/1.6/-- (01/20 [...] seen and staffed with Dr. Mcgowan fellow medical collections Thank you, Starla Morris MD Associated attestation - Jyoti Bryant MD, PhD - 01/22/2024 10:54 AM EST Beata Bryant MD, PhD, have independently seen and examined the patient, reviewed the labs, discussed the patient with the fellow/resident and agree with the note. Associated Order(s): IP CONSULT TO HEPATOBILIARY N [facility] Hepatology Consult WebExchange --> IM Consult Serv [facility] --> [facility] Main Hepatology consult service [...] DAY SURGERY MAIN OR KIDNEY TRANSPLANT W/O OSAGE NEPHRECTOMY N/A 04/12/2020 Laterality: N/A; Surgeon: LU Palma; Location: [facility] SAME DAY SURGERY MAIN OR OTHER SURGICAL [...] (order for outpatient) Please SecureChat or Call ([phone]) for any questions. Await attending attestation for final recommendations. Hank Noel MD Division of Gastroenterology, Hepatology, and Nutrition Clinical Fellow, PGY-5 Pager: [phone] For urgent/stat calls or consults 5pm to 7am, please page the on-call GI fellow on [employer]Roadmapa. [facility]--> Internal Medicine--> Gastroenterology, Hepatology, & Nutrition--> 1st Call Janae Hatfield For urgent/stat calls or consults 7am to 5pm during the weekend, please page the on-call GI fellow on [employer]Roadmap[employer]. [facility]--> Internal Medicine--> Gastroenterology, Hepatology, & Nutrition--> All Hep & East Wknd Cons Fel Day For follow up questions regarding this patient 7am to 5pm during the weekday, contact the Hepatology consults fellow or CARLOS A on [employer]a. [facility]--> Internal Medicine--> Gastroenterology, Hepatology, & Nutrition--> [...] Estrada MD, MSc documented in this encounter [facility] 01-19-2024 Nurse Note 01/19/24 0900 Vitals [...] rest, 95-96% when talking/moving. Paulette Cordon RN [facility] 01-19-2024 Nurse Note Paged overnight coverage, Jasper Gastelum MD, via pager #[phone] Pt- George Styles. Sarah 1082. TM1. Was wondering if he can have his Melatonin order increased to 6mg. Per pt, he usually takes 8mg at home. -SAMI Duffy #[phone] Tati Charles RN [facility] 01-18-2024 Consult note Associated Order (s): IP CONSULT TO HEPATOBILIARY N [facility] Main Hepatology Consult WebExchange --> IM Consult Serv [facility] --> [facility] Main Hepatology consult service [...] 05/17/2022 Surgeon: Enzo Heart DO; Location: [facility] INTERVENTIONAL RADIOLOGY (VIR) LIVER TRANSPLANT, ORTHOTOPIC N/A 04/12/2020 Laterality: N/A; Surgeon: LU Palma; Location: [facility] SAME DAY SURGERY MAIN OR KIDNEY TRANSPLANT W/O OSAGE NEPHRECTOMY N/A 04/12/2020 Laterality: N/A; Surgeon: LU Palma; Location: [facility] SAME DAY SURGERY MAIN OR OTHER SURGICAL [...] (order for outpatient) Please SecureChat or Call ([phone]) for any questions. Await attending attestation for final recommendations. Hank Noel MD Division of Gastroenterology, Hepatology, and Nutrition Clinical Fellow, PGY-5 Pager: [phone] For urgent/stat calls or consults 5pm to 7am, please page the on-call GI fellow on [employer]Genda. [facility]--> Internal Medicine--> Gastroenterology, Hepatology, & Nutrition--> 1st Call Fel Alysia For urgent/stat calls or consults 7am to 5pm during the weekend, please page the on-call GI fellow on [employer]Genda. [facility]--> Internal Medicine--> Gastroenterology, Hepatology, & Nutrition--> All Hep & East Wknd Cons Fel Day For follow up questions regarding this patient 7am to 5pm during the weekday, contact the Hepatology consults fellow or CARLOS A on [employer]. [facility]--> Internal Medicine--> Gastroenterology, Hepatology, & Nutrition--> All Hep Consult Fel Day OR Transplant Hep Consults CARLOS A Associated attestation - Michael Estrada MD, LU [...] (order for outpatient) Michael Estrada MD, MSc [facility] Work Phone: 01-16-2024 Plan of care note Internal Medicine Daily Progress Note Patient: George Styles, 1970, [id number] Physician: Arelis Mera MD, PGY3, Pager #[phone], TM1 service Assessment/Plan: George Styles is a [...] home amlodipine 5mg CAD: non-obstructive CAD on [facility] 2018. - continue home aspirin [...] MD, on rounds. Signed, Arelis Mera MD [facility] 01-16-2024 Nurse Note Mr. Styles was admitted to [address] [place] [address]. On admission to [facility], from outside facility a dual RN initial assessment of skin condition was performed by Izzy Gutierrez RN and Leroy Singleton RN. Skin Assessment: Skin within defined limits:Yes Jose Score: 20 Wound Vision Emergency Room Orderly images obtained: No LDA Added: No Based [...] room closest to nurses station when available. [facility] 01-16-2024 History and physical note Images from the original note were not included. Internal Medicine Admission History & Physical Patient: George Styles, 1970, [id number] Physician: Timothy Joseph MD, PGY1, Pager #[phone], TM 1 service Date of face to [...] 05/17/2022 Surgeon: Enzo Heart DO; Location: [facility] INTERVENTIONAL RADIOLOGY (VIR) LIVER TRANSPLANT, ORTHOTOPIC N/A 04/12/2020 Laterality: N/A; Surgeon: LU Palma; Location: [facility] SAME DAY SURGERY MAIN OR KIDNEY TRANSPLANT W/O OSAGE NEPHRECTOMY N/A 04/12/2020 Laterality: N/A; Surgeon: LU Palma; Location: [facility] SAME DAY SURGERY MAIN OR OTHER SURGICAL [...] itraconazole Fax results to: Dr. White - [phone] Transplant Neph - [phone] Gabapentin 400 MG capsule Sig: Take 1 [...] erythema: Skin: No jaundice or rash Neuro: pharmaceutical representative 3-7, 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 Strength [...] home amlodipine 5mg CAD: non-obstructive CAD on [facility] 2018. - continue home aspirin 81mg daily Gout: continue home allopurinol 200mg daily BPH: continue home flomax 0.4mg daily Complexity. Obesity Body mass index is 32.8 kg/m . - Follow with PCP for dietary and lifestyle modifications. Any conditions listed below are present on admission unless otherwise specified. . DVT prophylaxis with lovenox Disposition: admitted to [facility] Code status is Full Staffed [...] Pierson, Luisa Steven, Renee Rivera, Daisha Max Lead Generation Specialist: José Miguel Garnica All Txt: 04/13/2020 [...] results found for: CYCLOSPORIN , CYCLOSPORIN2 , [id number] , CYCLORAND No results found for: SIROLIMUS [...] imaging per Infectious Disease request in chart. Keivn Prince MD Pager [phone] [facility] 01-16-2024 History and physical note Images from the original note were not included. Internal Medicine Admission History & Physical Patient: George Styles, 1970, [id number] Physician: Timothy Joseph MD, PGY1, Pager #[phone], TM 1 service Date of face to [...] 05/17/2022 Surgeon: Enzo Heart DO; Location: [facility] INTERVENTIONAL RADIOLOGY (VIR) LIVER TRANSPLANT, ORTHOTOPIC N/A 04/12/2020 Laterality: N/A; Surgeon: LU Palma; Location: [facility] SAME DAY SURGERY MAIN OR KIDNEY TRANSPLANT W/O OSAGE NEPHRECTOMY N/A 04/12/2020 Laterality: N/A; Surgeon: LU Palma; Location: [facility] SAME DAY SURGERY MAIN OR OTHER SURGICAL [...] itraconazole Fax results to: Dr. White - [phone] Transplant Neph - [phone] Gabapentin 400 MG capsule Sig: Take 1 [...] erythema: Skin: No jaundice or rash Neuro: pharmaceutical representative 3-7, 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 Strength [...] home amlodipine 5mg CAD: non-obstructive CAD on [facility] 2018. - continue home aspirin 81mg daily Gout: continue home allopurinol 200mg daily BPH: continue home flomax 0.4mg daily Complexity. Obesity Body mass index is 32.8 kg/m . - Follow with PCP for dietary and lifestyle modifications. Any conditions listed below are present on admission unless otherwise specified. . DVT prophylaxis with lovenox Disposition: admitted to [facility] Code status is Full Staffed [...] Pierson, Luisa Steven, Renee Rivera, Daisha Max Lead Generation Specialist: José Miguel Garnica All Txt: 04/13/2020 [...] results found for: CYCLOSPORIN , CYCLOSPORIN2 , [id number] , CYCLORAND No results found for: SIROLIMUS [...] request in chart. Kevin Prince MD Pager [phone] documented in this encounter [facility] 01-12-2024 History of Present illness Narrative [...] Name: Prograf 0.2 MG Contact Info: Specialty ([place]) [phone] [facility] [phone] [facility] [phone] David [phone] Bedside Delivery ([facility]) [phone] [facility] OP RX OUTREACH ADVANCED: Call Information: Date and Time of Contact: 01/25/2024 10:23 AM Method of Contact: By Phone Contact Type: Prescriptions Contactor: [facility] OP Contactee: Patient Contact Outcome: Left message (prograf myco) Contact Info: Specialty ([place]) [phone] [facility] [phone] [facility] [phone] David [phone] Bedside Delivery ([facility]) [phone] documented in this encounter [facility] 01-12-2024 History of Present illness Narrative [...] Prograf 0.2 MG Contact Info: Specialty ([place]) [phone] [facility] [phone] [facility] [phone] David [phone] Bedside Delivery ([facility]) [phone] [facility] OP RX OUTREACH ADVANCED: Call Information: Date and Time of Contact: 01/25/2024 10:23 AM Method of Contact: By Phone Contact Type: Prescriptions Contactor: [facility] OP Contactee: Patient Contact Outcome: Left message (prograf myco) Contact Info: Specialty ([place]) [phone] [facility] [phone] [facility] [phone] [facility] [phone] Bedside Delivery ([facility]) [phone] [facility] OP RX OUTREACH ADVANCED: Call Information: Date and Time of Contact: 01/27/2024 10:19 AM Method of Contact: By Phone Contact Type: Prescriptions Contactor: [facility] OP Contactee: Patient Contact Outcome: Left message (myco prograf) Contact Info: Specialty ([place]) [phone] [facility] [phone] [facility] [phone] [facility] [phone] Bedside Delivery ([facility]) [phone] documented in this encounter [facility] 01-12-2024 History of Present illness Narrative [...] Name: Prograf 0.2 MG Contact Info: Specialty ([place]) [phone] [facility] [phone] [facility] [phone] [facility] [phone] Bedside Delivery ([facility]) [phone] [facility] OP RX OUTREACH ADVANCED: Call Information: Date and Time of Contact: 01/25/2024 10:23 AM Method of Contact: By Phone Contact Type: Prescriptions Contactor: [facility] OP Contactee: Patient Contact Outcome: Left message (prograf myco) Contact Info: Specialty ([place]) [phone] [facility] [phone] [facility] [phone] [facility] [phone] Bedside Delivery ([facility]) [phone] [facility] OP RX OUTREACH ADVANCED: Call Information: Date and Time of Contact: 01/27/2024 10:19 AM Method of Contact: By Phone Contact Type: Prescriptions Contactor: [facility] OP Contactee: Patient Contact Outcome: Left message (myco prograf) Contact Info: Specialty ([place]) [phone] [facility] [phone] [facility] [phone] David [phone] Bedside Delivery ([facility]) [phone] [facility] OP RX OUTREACH ADVANCED: Call Information: Date and Time of Contact: 02/01/2024 3:22 PM Contact Type: Prescriptions Contactor: [facility] OP Contactee: Patient Contact Outcome: Left message Shipping/Pickup: Medication Name: Mycophenolate 360mg and Prograf 0.2mg Pack Contact Info: Specialty ([place]) [phone] [facility] [phone] [facility] [phone] [facility] [phone] Bedside Delivery ([facility]) [phone] documented in this encounter [facility] 01-06-2024 History of Present illness Narrative [...] The neurologist wanted to send him to [facility] neurology but it is out [...] I have advised pt to contact insurance [employer] to see if they can provide a [...] 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) documented in this encounter [facility] 10-06-2023 History of Present illness Narrative [facility] [...] ; Prograf 0.2 MG Contact Info: Specialty ([place]) [phone] Jakob [phone] [facility] [phone] David [phone] Bedside Delivery ([facility]) [phone] [facility] OP RX OUTREACH ADVANCED: Call Information: Date and Time of Contact: 10/23/2023 2:00 PM Method of Contact: By Phone Contact Type: Prescriptions Contactor: [facility] OP Contactee: Patient Contact Outcome: Left message and Call back later Shipping/Pickup: Medication Name: Mycophenolate 360mg and Prograf 0.2mg Contact Info: Specialty ([place]) [phone] [facility] [phone] [facility] [phone] David [phone] Bedside Delivery ([facility]) [phone] documented in this encounter [facility] 09-11-2023 Miscellaneous Notes Pt discharged [...] the oxygen during the night. pt will diamond picker his oxygen from [employer] [facility], 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 This [...] Guideline (CPG) Outcome: Ongoing Flowsheets (Taken 09/07/2023 042 by Wilma Hay RN) Related Risk Factors [...] Patient seen ambulating in the velazquez with JEWELRY FINISHER. Patient was mildly short of breath on [...] & HR 114. Messaged Mainor Loomis, via [employer] secure chat, Temp 100.8. His tylenol order [...] short period of time. 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 Episode of [...] Critical Care Medicine Message Mainor Loomis, via [employer] secure chat, Good evening, just an FYI, [...] short period of time. 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 This morning, [...] [address] Loera here also (front end software engineer) Dr. Diaz aware of pt's increased oxygen [...] regular sleep/rest pattern promoted Sent a secure [employer] chat to Rosi LUZ concerning patient's temp [...] PGY-2 Mr. Styles was admitted to [address] [place] [address]. On admission to [facility], from home a [...] when available. documented in this encounter [facility] 09-11-2023 History of Present illness Narrative Provided follow-up emotional and spiritual support. Patient shared about rosemary of discharge and looking forward to seeing family Draw In Hand provided: - Supportive presence - Active listening - Validation of feelings/emotions Patient encouraged to request a special education resource room teacher as needed. Chaplains are available in-house 24 hours a day and 7 days a week. For urgent matters in [facility], please page [phone]. If the request is not urgent, please enter a consult. Consults are responded to within 24 hours. Senior Staff Draw In Hand Angie Singh Mdiv, [facility] Kirk [phone] [email or web address] 22/06 On-call [place]: [phone] 22/06 Pager ,BS, and Brock Hernandez Pager [phone] 09/11/23 1430 Clinical Encounter Type Visited With Patient Visit Type Follow-up Pastoral Time Spent 15 min Referral Other (See Comment) (rounding) Spiritual Assessment Spiritual Observation Spirituality helpful Emotional Observation Coping well Hope Observation Specific hope focus Support Observation By Family Interventions Provided Active listening;Supportive presence Facilitated Verbalization of feelings Explored Expectations Trade Recruiter Education Trade Recruiter Service Available Yes Educated Patient Plan of Care Continue Visiting PRN Images from the original note were not included. [facility] Note: Non-Verbal Med Rec [facility] received the following discharge prescription(s): Total cost is $0. I have reviewed the Discharge Rx Reconciliation Report. The discharge prescription(s) will be delivered to the patient on 09/11/2023. Dimitrios Gurrola [facility],PharmD Specialty (Yanci) [phone] Jakob [phone] Jakob Bedside Delivery [phone] [facility] [phone] [facility] Bedside Delivery [phone] David [phone] David Bedside Delivery [phone] Camby [phone] Jolene [phone] Internal Medicine Daily Progress Note Patient: George Styles, 1970, [id number] Physician: Evan Kelly MD, PGY-1, TM1 service Subjective/Interval History: Patient continues to require oxygen overnight for desaturations. With insurance limitations, only accepting agency to provide home oxygen backed out. After calling them to discuss, Lynn stated she would be willing to have patient drive to their facility to diamond picker supplies, however they close at 5pm. 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 His [place] kidney disease was noted to be presumed [...] losartan 50mg BID CAD: non-obstructive CAD on [facility] 2018. - continue home aspirin [...] 5.05 (H) 11/19/2018 Kevin Prince MD, SERA Architectural Inspector of Clinical Medicine [facility] Images from the original note were not included. Final Discharge Planning and Transportation Final Discharge Planning Discharge Disposition: Home Services at Discharge: Outpatient clinical services (ie: lab draws, transfusions, injectables) (Home Oxygen by [employer]) Selected Continued Care - Admitted Since 08/28/2023 Durable Medical Equipment Coordination complete. Service Provider Selected Services Address Phone Fax Patient Preferred [employer] Durable Medical Equipment [address] [facility] [address] [phone] Internal Comment last updated by Lora Lawrence RN 09/10/2023 1334 Correct contact information: [employer] [address] [place] [address] [place] [address] [place] [address] mortgage advisor- you do not need to call at discharge, I already notified the company. Addendum [phone] [facility] this CM they are out of patient's insurance area and will not be able to service this patient at time of discharge. Provider notified. Addendum [phone] Kelly [facility] spoke to Lynn and she said they are willing to accept patient if the patient would drive to the [employer] office and diamond picker the supplies. Patient is willing to [...] Lora Colón RN, MSN, CCM, CMCN Clinical Hydrography Teacher- R10 Transplant #[phone] Department of Pharmacy Transplant Note Patient: George [...] dose adjustment Name: Matt Kramer RPh,PharmD Phone: [phone] Date/Time: 09/10/2023 11:33 AM This CM sent referral via [employer]Six for O2 concentrator to 4 agencies Start date today Timer set for [address] [employer] [facility] [employer] Addendum 1332 One accepting company reserved in [employer] [address] [place] [address] [place] [address] Lora Colón RN, MSN, CCM, CMCN Clinical Hydrography Teacher- R10 Transplant #[phone] NUTRITION FOLLOW-UP Nutrition Plan of Care: 1. Continue current diet order. 2. No oral supplements warranted at this time. 3. Monitor for significant weight changes. Monitor GI, skin integrity. 4. Monitor and encourage po intakes with goal of average po being 75-100%. 5. technical assistant to follow. ___ Met with patient today [...] this time. Will continue to monitor. Cecilia Mattson DTR Pager:[phone] Transplant Infectious Disease (Team 3) Progress Note [...] sign off. Please Epic message or page [phone] with questions. 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 His [place] kidney disease was noted to be presumed [...] losartan 50mg BID CAD: non-obstructive CAD on [facility] 2018. - continue home aspirin [...] to follow. Please Epic message or page [phone] with questions. Evan White DO Transplant Infectious Diseases Internal Medicine Daily Progress Note Patient: George Styles, 1970, [id number] Physician: Laurel Serrano MD, PhD, PGY-3, TM1 [...] s/p combined Liver-kidney transplant on 04/13/20. His [place] kidney disease was noted to be presumed [...] losartan 50mg BID CAD: non-obstructive CAD on [facility] 2018. - continue home aspirin [...] Daily Progress Note Patient: George Styles, 1970, [id number] Physician: Evan Kelly MD, PGY-1, TM1 service [...] s/p combined Liver-kidney transplant on 04/13/20. His [place] kidney disease was noted to be presumed [...] losartan 50mg BID CAD: non-obstructive CAD on [facility] 2018. - continue home aspirin [...] 5.05 (H) 11/19/2018 Kevin Prince MD, SERA Architectural Inspector of Clinical Medicine [facility] Transplant Infectious Disease [...] to follow. Please Epic message or page [phone] with questions. Ann Marie Haskins MD PGY-4, [...] he continues to improve. Please message via [employer] secure chat or page with any questions or concerns. Evan White DO Architectural Inspector Division of Infectious Disease Transplant Infectious Disease [...] to follow. Please Epic message or page [phone] with questions. Evan White DO Transplant Infectious Diseases Images from the original note were not included. Pulmonary/Critical Care Medicine Daily Progress Note Reason for Consultation: bronch for infectious workup Requesting Physician: Dr. Prince CURRENT HOSPITALIZATION: Admit Date: 08/28/2023 [facility] LOS: 9 days Impression 1. Acute [...] and interpreted reviewed the radiographic data in [employer]ics/Runivermag/ManageSocial. Internal Medicine Daily Progress Note Patient: George Styles, 1970, [id number] Physician: Evan Kelly MD, PGY-1, TM1 service [...] s/p combined Liver-kidney transplant on 04/13/20. His [place] kidney disease was noted to be presumed [...] losartan 50mg BID CAD: non-obstructive CAD on [facility] 2018. - continue home aspirin [...] 5.05 (H) 11/19/2018 Kevin Prince MD, SERA Architectural Inspector of Clinical Medicine [facility] Images from the original note were not included. Pulmonary/Critical Care Medicine Daily Progress Note Reason for Consultation: bronch for infectious workup Requesting Physician: Dr. Prince CURRENT HOSPITALIZATION: Admit Date: 08/28/2023 [facility] Hospital LOS: 8 days Impression 1. Acute [...] and interpreted reviewed the radiographic data in IHIS/Runivermag/ManageSocial. Acute Occupational Therapy Evaluation Prior to Admission [...] Assessment: Transfer Assessment: Sit to Stand Transfer New Roads Level: Sit->Stand: independent Skilled Intervention/Details: Sit->Stand: x1 from EOB, x1 from toilet Stand to Sit Transfer [place] Roads Level: Stand->Sit: independent Skilled Intervention/Details: Stand->Sit: x1 to toilet, x1 to EOB Functional Mobility: Functional Mobility [place] Road[place] Level: Functional Mobility/Gait: independent Ambulation Distance (Feet): 20 Skilled Intervention/Details - Functional Mobility/Gait: pt performed functional mobility to/from RR w/ no overt LOB Outcome Score(s): CURRENT [facility] Daily Activity Inpatient Short Form Putting on/Taking Off Lower Body Clothin - A Little Assistance Bathin - A Little Assistance Toiletin - A Little Assistance Putting on/Taking Off Upper Body Clothin - No Assistance Groomin - No Assistance Eatin - No Assistance CURRENT [facility] Activity Raw Score: 21 CURRENT [facility] Activity Functional Limitation/Modifier: 32.79% Currently Impaired [...] Intact Mobility Assessment: Supine to Sit Mobility [place] Road[place] Level: Supine->Sit: modified independence Bed Features/Set-up: Supine->Sit: Head of bed elevated Sit to Supine Mobility [place] Road[place] Level: Sit->Supine: not tested Balance: Sitting Balance [...] environment. Transfer Assessment: Sit to Stand Transfer [place] Road[place] Level: Sit->Stand: independent Skilled Intervention/Details: Sit->Stand: From EOB x 2 without difficulty. Stand to Sit Transfer [place] Roads Level: Stand->Sit: independent Assistive Device: Stand->Sit: armed chair Skilled Rationale: Verbal cues, Positioning Gait/Functional Mobility: Gait Assessment [place] Roads Level: Gait: stand-by assist Assistive Device: Gait: rollator Ambulation Distance (Feet): 400 Gait Deviations Identified: decreased grace, decreased gait speed Gait Skilled Rationale: verbal, upright posture, increase step length, increase foot clearance Skilled Intervention/Details - Gait: Reasonable foot clearnce without loss of balance but endorsing dyspnea as 6-7/10. Stairs: Stairs Assessment [place] Roads Level: Stair Negotiation: not tested Outcome Score(s): CURRENT [facility] Basic Mobility Inpatient Short Form Turning over in bed: 4 - No Assistance Sitting/standing from chair: 4 - No Assistance Moving from lying on back to sittin - No Assistance Moving to and from bed to chair: 3 - A Little Assistance Walk in hospital room: 3 - A Little Assistance Climbing 3-5 steps with a railin - A Little Assistance CURRENT [facility] Mobility Raw Score: 21 CURRENT [facility] Mobility Functional Limitation/Modifier: 28.97% Currently Impaired [...] Daily Progress Note Patient: George Styles, 1970, [id number] Physician: Evan Kelly MD, PGY-1, TM1 service [...] s/p combined Liver-kidney transplant on 04/13/20. His [place] kidney disease was noted to be presumed [...] losartan 50mg BID CAD: non-obstructive CAD on [facility] 2018. - continue home aspirin [...] 5.05 (H) 11/19/2018 Kevin Prince MD, MADISONN Architectural Inspector of Clinical Medicine [facility] Transplant Infectious Disease (Team [...] to follow. Please Epic message or page [phone] with questions. Evan White DO Transplant Infectious Diseases Images from the original note were not included. Internal Medicine Daily Progress Note Patient: George Styles, 1970, [id number] Physician: Evan Kelly MD, PGY-1, TM1 service [...] s/p combined Liver-kidney transplant on 04/13/20. His [place] kidney disease was noted to be presumed [...] losartan 50mg BID CAD: non-obstructive CAD on [facility] 2018. - continue home aspirin [...] P 450 system Kevin Prince MD, SERA Architectural Inspector of Clinical Medicine [facility] ERT [...] MD, PhD Internal Medicine and Pediatrics PGY-3 [facility] Brief plan of care update: Called [...] MD, PhD Internal Medicine and Pediatrics PGY-3 [facility] Transplant Infectious Disease (Team 3) Progress [...] to follow. Please Epic message or page [phone] with questions. Evan White DO Transplant Infectious Diseases Internal Medicine Daily Progress Note Patient: George Styles, 1970, [id number] Physician: Evan Kelly MD, PGY-1, TM1 service [...] clinical situation. Data Review: WBC/Hgb/Hct/Plts: 4.36/12.8/39.6/222 (09/03 040) Na/K+/Phos/Mg/Ca: 136/4.1/--/1.6/-- (09/03 402) Bun/Creat/Cl/CO2/Glucose: 17/1.20/104/24/112 (09/03 [...] s/p combined Liver-kidney transplant on 04/13/20. His [place] kidney disease was noted to be presumed [...] 2/2 renal function CAD: non-obstructive CAD on [facility] 2018. - continue home aspirin [...] CREATSERUM 5.05 (H) 11/19/2018 Kevin Prince MD, [facility] Architectural Inspector of Clinical Medicine [facility] Internal Medicine Daily Progress Note Patient: George Styles, 1970, [id number] Physician: Evan Kelly MD, PGY-1, TM1 service Subjective/Interval History: No acute events overnight. Patient with increasing oxygen requirements during bronchoscopy today. Returned to 4L NC post procedure. Patient denies any current shortness of breath. All questions answered by the team on rounds. Objective: Vitals: 09/02/231520 BP: Pulse: 77 Resp: 23 Temp: SpO2: 94% O2 Device: nasal cannula (09/02/231520) Flow (L/min): 4 (10/04/23 1521) Gen: Alert, Awake, NAD, tired-appearing Eyes: EOMI, [...] s/p combined Liver-kidney transplant on 04/13/20. His [place] kidney disease was noted to be presumed [...] 2/2 renal function CAD: non-obstructive CAD on [facility] 2018. - continue home aspirin [...] 5.05 (H) 11/19/2018 Kevin Prince MD, SERA Architectural Inspector of Clinical Medicine [facility] Progression of Care Note [...] Lora Colón RN, MSN, CCM, CMCN Clinical Hydrography Teacher- R10 Transplant #[phone] Made introductory visit with patient. Provided emotional and spiritual support. Patient shared about: - Source of Rosemary: Camping/Fishing/Family - Spirituality/Latter-Day Affiliation: raised Jewish - Family Support/history - Experience with illness/hospital course - Hopes for healing/future Draw In Hand provided: - Supportive presence - Active listening - Validation of feelings/emotions - Pledged prayer Patient encouraged to request a special education resource room teacher as needed. Chaplains are available in-house 24 hours a day and 7 days a week. For urgent matters in [facility], please page [phone]. If the request is not urgent, please enter a consult. Consults are responded to within 24 hours. Senior Staff Draw In Hand Angie Singh Mdiv, [facility] Kirk [phone] [email or web address] 22/06 On-call [place]: [phone] 22/06 Pager ,BS, and Brock Hernandez Pager [phone] 09/02/23 1117 Clinical Encounter Type Visited With Patient Visit Type Introduction Pastoral Time Spent 15 min Referral Other (See Comment) (rounding) Spiritual Assessment Spiritual Observation Spirituality helpful Emotional Observation Coping well Hope Observation Specific hope focus Support Observation By Family Interventions Provided Active listening;Supportive presence Facilitated Verbalization of feelings Explored Expectations Trade Recruiter Education Trade Recruiter Service Available Yes Educated Patient Outcomes Patient Outcomes Reduced distress Plan of Care Continue Visiting PRN NUTRITION RISK SCREENING NOTE Nutrition Plan of Care: 1. Continue current diet order. 2. No oral supplements warranted at this time. 3. Monitor for significant weight changes. Monitor GI and skin integrity. 4. Monitor and encourage po intakes with goal of average po being 100%. 5. technical assistant to follow. George Styles is a 53 y.o. 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 His [place] kidney disease was noted to be presumed hepatorenal syndrome. His post-transplant course was noteworthy for nephrostomy tube (05/17/2022-09/10/2022) due to concern for ureteral stone. He presents as a direct admission for fever, cough, for infectious workup. Pt unavailable and information obtained via chart review Spinner Cap Frame Screening Pt's appetite is good. Pt with [...] with meds Food Allergies reviewed:Shellfish Cultural or Latter-Day Restrictions/Preferences: None GI: Last Bowel Movement: 09/01/23 [...] time. Will continue to monitor. RHIANNON BirminghamR Pager:[phone] Internal Medicine Daily Progress Note Patient: George Styles, 1970, [id number] Physician: Evan Kelly MD, PGY-1, TM1 service [...] s/p combined Liver-kidney transplant on 04/13/20. His [place] kidney disease was noted to be presumed [...] 2/2 renal function CAD: non-obstructive CAD on [facility] 2018. - continue home aspirin [...] as outlined above. Kevin Prince MD Pager [phone] Summary: Pharmacy Med Rec Department of Pharmacy [...] 0 Provider: Zuly Bruno NP [place] [facility] Other Comments: Patient reported his Last Home Dose of mycophenolate & tacrolimus was on 08/28/23 at 0900. Patient reported he was taking Bactrim and benzonatate for fevers and a cough he was having. Please feel free to contact me with any further questions. Name: Heidy Chatman Phone #: [phone] Date/Time: 09/01/2023 2:01 PM Time Spent: 15 minutes Associated attestation - Matt Kramer RPh,PharmD - 09/01/2023 2:28 PM EDT Department of Pharmacy Admission Medication Reconciliation Note Patient: George Styles Room/Bed: 1062/A I have reviewed the home medication list with the Manager Medicaid. All changes to the home medication list have been updated in IHIS. Updated TRIPLE VALVE TESTER Med List: Prior to Admission Medications Prescriptions [...] questions. Name: Matt Kramer RPh,PharmD Phone #: [phone] Date/Time: 09/01/2023 2:28 PM Transplant Infectious Disease [...] crypto antigen, EBV PCR -follow pending histo, [id number] labs These recommendations were discussed with the primary team. Transplant ID (Team 3) will continue to follow. Please Epic message or page [phone] with questions. Evan White DO Transplant Infectious Diseases Internal Medicine Daily Progress Note Patient: George Styles, 1970, [id number] Physician: Evan Kelly MD, PGY-1, TM1 service [...] s/p combined Liver-kidney transplant on 04/13/20. His [place] kidney disease was noted to be presumed [...] 2/2 renal function CAD: non-obstructive CAD on [facility] 2018. - continue home aspirin [...] % I/O last 3 completed shifts: In: 1659 [P.O.:1659] Out: 2074 [Urine:2074] No intake/output data recorded. [...] 5.05 (H) 11/19/2018 Kevin Prince MD, SERA Architectural Inspector of Clinical Medicine [facility] Discharge Planning Patient [...] Yes Name and Contact information: Gian Styles ([phone]) Reviewed and Updated in Demographics? : Yes Outpatient Providers Does patient have a primary care physician? : Yes When was the patient's last PCP visit?: > 30 days Does the patient follow any specialists?: No Reviewed and updated Care Team?: Yes Patient Care Team: Zuly Bruno CNP as PCP - General Environment/Caregivers Is the patient from a facility or care home?: No Patient lives with: Alone Living Environment: [...] patient on Anticoagulation? : No [id number] [place] [address] - [address] [facility] [place] [address] Pattern Assembler Does the patient or guest experience representative express financial concerns? : No Employed?: Disabled Coping/Stress Concerns about patient s coping and stress?: No Concerns about patient s caregiver s coping and stress?: No Values and Beliefs Cultural or protestant practices that may impact discharge planning and/or [...] Plan 1. 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 2. Confirmed and updated demographics and treatment team. 3. Hydrography Teacher will continue to follow with medical team/pt for any other additional discharge needs. Kasandra DON RN [facility] [phone] *Please note I am float CM and work Thursday and Thursday every other week. Please call [phone] for assist in my absence. Internal Medicine Daily Progress Note Patient: George Styles, 1970, [id number] Physician: Evan Kelly MD, PGY-1, TM1 service [...] C) SpO2: 94% O2 Device: nasal cannula (08/30/23 0728) Flow (L/min): 3 (08/30/23217) Gen: Alert, Awake, [...] s/p combined Liver-kidney transplant on 04/13/20. His [place] kidney disease was noted to be presumed [...] 2/2 renal function CAD: non-obstructive CAD on [facility] 2018. - continue home aspirin [...] 5.05 (H) 11/19/2018 Kevin Prince MD, SERA Architectural Inspector of Clinical Medicine [facility] Internal Medicine Daily Progress Note Patient: George Styles, 1970, [id number] Physician: Laurel Serrano MD, PhD, PGY-3, TM1 [...] s/p combined Liver-kidney transplant on 04/13/20. His [place] kidney disease was noted to be presumed [...] losartan 50mg BID CAD: non-obstructive CAD on [facility] 2018. - continue home aspirin 81mg daily, atorvastatin 20mg daily Gout: continue home allopurinol 200mg daily BPH: continue home flomax 0.4mg daily DVT PPX: SQH Code Status: Full Code Disposition: Pending clinical course. Anticipate eventual discharge home. Discussed with team and attending, Kevin Prince MD, on rounds. Signed, Laurel Serrano MD, PhD documented in this encounter [facility] 09-10-2023 Hospital Discharge instructions Laurel Serrano [...] a sleep doctor. You will need to diamond picker the oxygen concentrator when you leave [...] healthy foods. documented in this encounter [facility] 09-01-2023 Consult note Associated Order (s): IP CONSULT TO PULMONOLOGY Pulmonary Medicine Inpatient Consultation Reason for Consultation: bronch for infectious workup Requesting Physician: Dr. Prince Pulmonary Attending Physician: Dr. Diaz CURRENT HOSPITALIZATION: Admit Date: 08/28/2023 [facility] Hospital LOS: 4 days Impression/Recommendations: George Styles [...] Recommendations: - Plan to bronch tomorrow morning. NPO@ME, order placed - would repeat HIV, last [...] short period of time. 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 Other histories as documented in the [...] had any ill contacts. He traveled to [place] to [facility] in May. REVIEW OF SYSTEMS A [...] 05/17/2022 Surgeon: Enzo Heart DO; Location: [facility] INTERVENTIONAL RADIOLOGY (VIR) LIVER TRANSPLANT, ORTHOTOPIC N/A 04/12/2020 Laterality: N/A; Surgeon: LU Palma; Location: [facility] SAME DAY SURGERY MAIN OR KIDNEY TRANSPLANT W/O OSAGE NEPHRECTOMY N/A 04/12/2020 Laterality: N/A; Surgeon: LU Palma; Location: [facility] SAME DAY SURGERY MAIN OR OTHER SURGICAL [...] Alamo MD I can be reached via Di[employer]et[employer] secure message (preferred) or Pager #[phone] documented in this encounter [facility] 08-28-2023 History and physical note Images from the original note were not included. Internal Medicine Admission History & Physical Patient: George Styles, 1970, [id number] Physician: Aric Turner MD, PGY1, Pager #[phone], ZA service Date of face to face patient [...] sweats. Patient presented to clinic with Dr. Munoz on 08/28 with history of fevers that [...] So he went to see the transplant construction and maintenance inspector. He was found elevated Cr and asked to be hydrated. He still felt difficult of breath, overall weakness, and cough with a little bit sputum. Last night, he still felt fever and chill but didn't measure it, just took tylenol. He saw Dr. Munoz today and was admitted to hospital. He is keeping on his immunosuppressive medicine every day. Appetite is ok now. Urine is about 6423-2057 ml every day. Stool every day, no [...] 05/17/2022 Surgeon: Enzo Heart DO; Location: [facility] INTERVENTIONAL RADIOLOGY (VIR) LIVER TRANSPLANT, ORTHOTOPIC N/A 04/12/2020 Laterality: N/A; Surgeon: LU Palma; Location: [facility] SAME DAY SURGERY MAIN OR KIDNEY TRANSPLANT W/O OSAGE NEPHRECTOMY N/A 04/12/2020 Laterality: N/A; Surgeon: LU Palma; [facility] [facility] SAME DAY SURGERY MAIN OR OTHER SURGICAL [...] s/p combined Liver-kidney transplant on 04/13/20. His [place] kidney disease was noted to be presumed [...] Urinary histoplasmosis - PJP, candid PCR - Gage Maker transplant ID Acute Kidney Injury with Kidney [...] losartan 50mg BID CAD: non-obstructive CAD on [facility] 2018. - continue aspirin 81mg [...] Pierson, Luisa Steven, Renee Rivera, Daisha Max Lead Generation Specialist: José Miguel Garnica All Txt: 04/13/2020 [...] results found for: CYCLOSPORIN , CYCLOSPORIN2 , [id number] , CYCLORAND No results found for: SIROLIMUS [...] Rest as above. Kevin Prince MD Pager [phone] documented in this encounter [facility] 08-28-2023 History of Present illness Narrative Images from the original note were not included. 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 Lead Generation Specialist: Anayeli Burt Date of Liver Transplant: 04/13/2020 (Kidney), 04/13/2020 (Liver) 3 years 4 months post Liver/Kidney Transplant Primary Disease: Hypertensive Nephrosclerosis Transplant Pole Shaver Helper: Erma Roe/ Daisha Max Primary Care physician: [...] DGF Protocol? Discontinued Dialysis discontinued by Dr. Munoz on 04/26/20 due to recovered graft function [...] and faMOTIdine === None Specified Preferred Lab: [facility] Change in lab frequency / new [...] every 12 hours. ADDITIONAL INFORMATION: None Specified, [id number] [place] [address] - [address] [facility] [address] [facility] [address] [place] [id number] [id number] [place] [address] [address] [facility] [address] [place] [id number] [facility] [address], [place] [address] [place] [address] ROS and SCREEN: Chest Pain: negative Cough: [...] PHYSICIAN: I saw George Styles at the [facility] on 08/28/2023. Patient is a 53 y.o. 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 His [place] kidney disease was noted to be presumed [...] 05/17/2022 Surgeon: Enzo Heart DO; Location: [facility] INTERVENTIONAL RADIOLOGY (VIR) LIVER TRANSPLANT, ORTHOTOPIC N/A 04/12/2020 Laterality: N/A; Surgeon: LU Palma; Location: [facility] SAME DAY SURGERY MAIN OR KIDNEY TRANSPLANT W/O OSAGE NEPHRECTOMY N/A 04/12/2020 Laterality: N/A; Surgeon: LU Palma; Location: [facility] SAME DAY SURGERY MAIN OR OTHER SURGICAL [...] me if you have any questions. Steve Munoz MD security system analyst Division of Nephrology [facility] documented [...] Required: No Mailing/Pickup Date: 08/25/2023 Shipping Address: [address] [place] [address] Contact Info: Specialty ([place]) [phone] [facility] [phone] [facility] [phone] [facility] [phone] Bedside Delivery ([facility]) [phone] documented in this encounter [facility] 06-12-2023 History of Present illness Narrative Images from the original note were not included. George Styles is a 53 y.o. 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 No longer follows with a local construction and maintenance inspector. History of Present Illness: Since George was [...] and lab results. Rebeca Gutierrez MSN, RN, CHIEF JAILER-BC, CCTN Certified Nurse Practitioner [facility] [address] [facility] [phone] documented in this encounter [facility] [...] Mycophenolate sod 180 mg Contact Info: Specialty ([place]) [phone] [facility] [phone] [facility] [phone] [place] [phone] Bedside Delivery ([facility]) [phone] [facility]RE[facility]: Call Information: Date and Time of Contact: 06/12/2023 9:43 AM Method of Contact: By Phone Contact Type: Prescriptions Contactor: [facility] Contactee: Patient Contact Outcome: Left message and Follow-up Shipping/Pickup: Medicare B Refill?: No Medication Name: Myco 180 Contact Info: Specialty ([place]) [phone] [facility] [phone] [facility] [phone] [place] [phone] Bedside Delivery ([facility]) [phone] [facility] OUTREACH ADVANCED: Call Information: Date and Time of Contact: 06/12/2023 10:08 AM Method of Contact: By Phone Contact Type: Prescriptions Contactor: [facility] Contactee: Patient Shipping/Pickup: Medicare B Refill?: No Medication Name: Mycophenolate 180mg DR Delivery Method: Air Delivery Location: Home Signature Required: No Mailing/Pickup Date: 06/17/2023 Shipping Address: [address] [place] [address] Contact Info: Specialty ([place]) [phone] [facility] [phone] [facility] [phone] [place] [phone] Bedside Delivery ([facility]) [phone] documented in this encounter [facility] 04-13-2023 Note [place] [facility] Subjective George Styles is a [...] on (more content not included)... [facility] 03-12-2023 History of Present illness Narrative [facility]: Call Information: Date and Time of Contact: 03/12/2023 10:34 AM Method of Contact: By Phone Contact Type: Prescriptions Contactor: [facility] Contactee: Patient Shipping/Pickup: Medicare B Refill?: No Medication Name: Mycophenoloate sod 360 mg prednisone 5mg Delivery Method: Air Delivery Location: Home Signature Required: No Mailing/Pickup Date: 03/16/2023 Shipping Address: [address] [place] [address] Contact Info: Specialty ([place]) [phone] [facility] [phone] [facility] [phone] [place] [phone] Bedside Delivery ([facility]) [phone] [facility] OUTREACH ADVANCED: Call Information: [...] Required: No Mailing/Pickup Date: 03/19/2023 Shipping Address: [address] [facility] [address] Contact Info: Specialty ([place]) [phone] [facility] [phone] [facility] [phone] [facility] [phone] Bedside Delivery ([facility]) [phone] documented in this encounter [facility] 03-10-2023 History of Present illness Narrative [facility]REACH [facility]: Call Information: Date and Time of Contact: 03/10/2023 12:00 PM Method of Contact: By Phone Contact Type: Prescriptions Contactor: [facility] Contactee: Patient Contact Outcome: Left message and Call back later Shipping/Pickup: Medication Name: Mycophenolate ; Tacrolimus Contact Info: Specialty ([place]) [phone] [facility] [phone] [facility] [phone] [place] [phone] Bedside Delivery ([facility]) [phone] documented in this encounter [facility] 03-10-2023 History of Present illness Narrative [facility]REACH [facility]ANCED: Call Information: Date and Time of Contact: 03/10/2023 12:00 PM Method of Contact: By Phone Contact Type: Prescriptions Contactor: [facility] Contactee: Patient Contact Outcome: Left message and Call back later Shipping/Pickup: Medication Name: Mycophenolate ; Tacrolimus Contact Info: Specialty ([place]) [phone] [facility] [phone] [facility] [phone] [place] [phone] Bedside Delivery ([facility]) [phone] [facility] OUTREACH ADVANCED: Call Information: Date and Time of Contact: 03/12/2023 10:32 AM Method of Contact: By Phone Contact Type: Prescriptions Contactor: [facility] Contactee: Patient Contact Outcome: Left message Shipping/Pickup: Medication Name: Mycophenolate sodium (MYFORTIC) 180 MG Tab tacrolimus 0.5 mg Contact Info: Specialty ([place]) [phone] Jakob [phone] [facility] [phone] [place] [phone] Bedside Delivery ([facility]) [phone] [facility]16[facility] History of Present [...] 05/17/2022 Surgeon: Enzo Heart DO; Location: [facility] INTERVENTIONAL RADIOLOGY (VIR) LIVER TRANSPLANT, ORTHOTOPIC N/A 04/12/2020 Laterality: N/A; Surgeon: LU Palma; Location: [facility] SAME DAY SURGERY MAIN OR KIDNEY TRANSPLANT W/O OSAGE NEPHRECTOMY N/A 04/12/2020 Laterality: N/A; Surgeon: LU Palma; Location: [facility] SAME DAY SURGERY MAIN OR OTHER SURGICAL [...] 0.3 12/29/2022 Explant Pathology Pathologic Diagnosis A. [place] liver, orthotopic liver transplant resection (1458 gram): [...] A/P with IV contrast (06/27/2022): 1. Both [place] kidneys are atrophic with improvement in right-sided [...] frequent nighttime urination, etc). Daisha Max DO Architectural Inspector Gastroenterology, Hepatology and Nutrition [facility] Pager: [phone] Images from the original note were not included. 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 Prior to transplant, the cPRA of the recipient was 0%. Donor KDPI 9%. MONITORING: COMMENTS: On DGF Protocol? Discontinued Dialysis discontinued by Dr. Munoz on 04/26/20 due to recovered graft function [...] levels: No results found for: CYCLOSPORIN, CYCLOSPORIN2, [id number], CYCLORAND No components found for: CYCLOSPORINE, 2HR [...] VITALS BP Readings from Last 3 Encounters: 02/17/23 142/75 09/10/22 129/83 07/07/22 141/76 Pulse Readings [...] hours. ADDITIONAL INFORMATION: None Specified [id number] [place] [address] - [address] [facility] [address] [facility] [address] [facility] [address] [place] [address] [id number] [place] [address] [address] [facility] [address] [place] [phone] [facility] [address], [place] [address] [place] [address] ROS and SCREEN: Chest Pain: negative Cough: [...] and no hydronephrosis. Some reflux up the [place] right ureter but good drainage of both transplant and [place] ureter to the bladder. Nephrostomy tube was [...] transplant, orthotopic (N/A, 04/12/2020); kidney transplant w/o [place] nephrectomy (N/A, 04/12/2020); and placement nephrostomy catheter [...] Negative for , diarrhea, constipation Genitourinary: See YUROK Neurological: Negative for headaches. Lymph/Heme: Negative for [...] x 4, Normal strength. No edema. Skin: [place], warm, and dry. There are no rashes [...] yo male with a DDRT to the [facility] in 2019. Previously placed nephrostomy tube in transplant kidney with concern for stone or obstruction. Repeat nephrostogram on 07/07 without filling defects and no hydronephrosis. Some reflux up the [place] right ureter but good drainage of both transplant and [place] ureter to the bladder. Nephrostomy tube was [...] MD 09/10/22 documented in this encounter [facility] 07-07-2022 History of Present illness Narrative [...] off the table and escorted to receptionist secretary where they made a follow up. Associated [...] to have transplant ureter with anastomosis to [place] right ureter. Nephrostogram without filling defects and no hydronephrosis. Some reflux up the [place] right ureter but good drainage of both transplant and [place] ureter to the bladder. Nephrostomy tube was removed without issue. Patient does have some sensation of incomplete bladder emptying and occasional sensation in his right flank. PVR today was 33cc. Will re-evaluate urinary symptoms at next appointment. --continue Flomax --RTC in one month flow flow/PVR/IPSS Patient to call with any additional questions or concerns. Ryan Yepez MD 07/07/22 documented in this encounter [facility] 06-27-2022 History of Present illness [...] transplant, orthotopic (N/A, 04/12/2020); kidney transplant w/o [place] nephrectomy (N/A, 04/12/2020); and placement nephrostomy catheter [...] Negative for , diarrhea, constipation Genitourinary: See YUROK Neurological: Negative for headaches. Lymph/Heme: Negative for [...] x 4, Normal strength. No edema. Skin: [place], warm, and dry. There are no rashes [...] yo male with a DDRT to the [facility] in 2019. Nephrostomy tube placed 05/17 due [...] bag if needed. documented in this encounter [facility] 06-27-2022 History and physical note Patient was evaluated in clinic as a nurse visit. Please refer to Rena Brewster's note. [facility] Work Phone: 06-27-2022 [...] mass or enlargement. KIDNEYS: Marked atrophy of [place] kidneys. Transplant right pelvic kidney with percutaneous [...] by: MÓNICA JIMENEZ Date: 2022-06-18 13:53 [facility] 06-12-2022 Instructions Anayeli Christianson RN - 06/12/2022 3:21 PM EDT Do not take apart/disrupt nephrostomy tube system. Call Interventional Radiology and/or on-call transplant nurse [phone] for instruction if need to flush (clot or decreased flow). Take cipro 500mg, one tablet, twice per day for 14 days documented in this encounter [facility] 06-12-2022 History of Present illness Narrative Images from the original note were not included. 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 Prior to transplant, the cPRA of the recipient was 0%. Donor KDPI 9%. MONITORING: COMMENTS: On DGF Protocol? Discontinued Dialysis discontinued by Dr. Munoz on 04/26/20 due to recovered graft function [...] Non-obstructing kidney stone in renal graft at [facility]. Percutaneous Neph Tube placed Images from the original note were not included. Nursing Assessment In Clinic (see Clinic Prep Sheet for additional information) Patient is accompanied to clinic today by: self Did patient require a wheelchair or medical transport for appointment: no Did senior front end developer confirm current address and insurance information is [...] LAB AND PHARMACY: None Specified [facility] [place] [address] - [address] [address] [facility] [address] [facility] [address] [id number] [place] [address] [address] [facility] [address] [facility] [address] [facility] [address], [place] [address] [facility] [address] ROS and SCREEN: Chest Pain: negative Cough: negative SOB: negative Abd Pain: negative Nausea: positive Vomiting: negative Diarrhea: negative Constipation: negative Dysuria: positive Edema: negative Tremors: negative Headaches: negative Wound issues: negative Pt has neph tube w clear yellow urine. States he had a small clot that he dislodged QUESTIONS OR CONCERNS TO ADDRESS WITH PHYSICIAN: I saw George Styles at the [facility] on 06/12/2022. Patient is a 52 y.o. 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 His [place] kidney disease was noted to be presumed [...] 05/17/2022 Surgeon: Enzo Heart DO; Location: [facility] INTERVENTIONAL RADIOLOGY (VIR) LIVER TRANSPLANT, ORTHOTOPIC N/A 04/12/2020 Laterality: N/A; Surgeon: LU Palma; Location: [facility] SAME DAY SURGERY MAIN OR KIDNEY TRANSPLANT W/O OSAGE NEPHRECTOMY N/A 04/12/2020 Laterality: N/A; Surgeon: LU Palma; Location: [facility] SAME DAY SURGERY MAIN OR OTHER SURGICAL [...] me if you have any questions. Steve Munoz MD security system analyst Division of Nephrology [facility] documented in this encounter [facility] 06-04-2022 Instructions TATI GROVE - 06/04/2022 11:04 AM EDT Thank you for joining us for your neph tube follow up. We recommend routine exchange every 8-10 weeks. Please reach out at [phone] when it is time to set your [...] provide teaching before his discharge Leon RN #[id number] Leon Cook RN Afternoon assessment completed at [...] Interdisciplinary Rounds/Family Conf Outcome: Ongoing Discussed with [facility] re: possible urine culture performed at [...] with questions. Evan Byrd MD Urology, PGY-2 #[id number] I certify that this patient requires inpatient [...] and Sheri Arguelles RN. Skin Assessment: WDL Ojse Score: 20 LDA Added:N Kallie Lorenzana RN [...] provide teaching before his discharge Leon RN #[id number] Leon Cook RN [facility] 05-20-2022 History of Present illness Narrative Images from the original note were not included. [facility] ([facility] Note: [facility] received the following discharge prescription(s): Medication reconciliation was completed with comparison to discharge reconciliation report. The prescription(s) will be delivered to the patient's bedside on 05/20/22. Total cost is $0. Yanira Her RPh,PharmD Specialty ([place]) [phone] [facility] [phone] [facility] [phone] [place] [phone] [place] [phone] Bedside Delivery ([facility]) [phone] Attending I saw George Styles at the [facility] on 05/19/2022. I saw and independently [...] Nishant Gamez MD 8.6 mg at 05/19/22 08 sodium chloride 0.9% IV solution 250 mL [...] Daily Progress Note Patient: George Styles, 1970, [id number] Physician: Liam Julian MD, PGY-3, Pager #[phone], [email or web address] Subjective/Interval History: No acute events overnight. Passed stone this morning, will send to lab for analysis. Overall reporting improvement in abdominal pain. Objective: Vitals: 05/19/22 0400 BP: 174/77 Pulse: 62 Resp: 16 Temp: 97.8 F (36.6 C) O2 Device: room air (05/19/22399) Flow (L/min): 3 (05/17/22 1719) Gen: NAD, [...] 2019 for alcoholic cirrhosis/ESRD follows with Dr Yeison. - Continue home Tacrolimus and CellCept. CAD [...] MD (Peggy) Division of Hospital Medicine Pager [phone] Attending I saw George Styles at the [facility] on 05/18/2022. I saw and independently [...] 320 mg/mL for [facility] IR PRN Enzo Heart DO 15 mL at 05/17/22 1101 [Held [...] Daily Progress Note Patient: George Styles, 1970, [id number] Physician: Nishant Gamez MD, PGY2, Pager #[phone], [email or web address] Subjective/Interval History: Nephrostomy tube placed yesterday with a lot of urine output and significant improvement in creatinine. Objective: Vitals: 05/18/22 0410 BP: 190/86 Pulse: 83 Resp: 18 Temp: 98.4 F (36.9 C) O2 Device: room air (05/18/22409) Flow (L/min): 3 (05/17/22 4009) Gen: NAD, well-appearing HENT: NCAT, EOMI, MMM [...] 2019 for alcoholic cirrhosis/ESRD follows with Dr Munoz. - Restart home tacrolimus - continue cellcept 360 bid. CAD Continue aspirin and statin Htn Home regimen continued with amlodipine and holding losartan GERD Pepcid DVT prophylaxis with heparin Disposition: GM 4 for goss control and infectious workup Code status is FULL. Discussed with team and attending Signed, Nishant Gamez MD Associated attestation - Daay Saldana MD - 05/18/2022 3:25 PM EDT [...] to have stablized for this to be guest experience representative. Daya (Aggie Saldana MD Division of Hospital Medicine Pager [phone] Internal Medicine Daily Progress Note Patient: George Styles, 1970, [id number] Physician: Nishant Gamez MD, PGY2, Pager #[phone], [email or web address] Subjective/Interval History: Worsening creatinine this morning with [...] 2019 for alcoholic cirrhosis/ESRD follows with Dr Munoz. - Holding home tac 1mg bid and [...] Saldana MD Division of Hospital Medicine Pager [phone] Attending I saw George Styles at the [facility] on 05/17/2022. I saw and independently [...] 360 mg 360 mg Oral Q12HNS Evan Benentt MD 360 mg at 05/16/222051 ondansetron 4mg/2ml [...] of chart and discussion with treatment team, Hydrography Teacher has not identified needs at this time. [...] follow. Introduced self and role of the special education resource room teacher to patient. Provided emotional and spiritual support and the patient responded by sharing their experience and discussed the following: - Spirituality/Latter-Day Affiliation: As a kid attended Jewish religion but not a strong identity now - Family support - pt's brothers live close by Draw In Hand provided: - Supportive presence - Active listening - Validation of feelings/emotions Patient encouraged to request a special education resource room teacher as needed. Chaplains are available in-house 24 hours a day and 7 days a week. For urgent matters in [facility], please page [phone]. If the request is not urgent, please enter a consult. Consults are responded to within 24 hours. Angie Singh Mdiv, BCC [facility] Trans[facility] [place] [address] Draw In Hand [facility] Draw In Hand [place] [phone] [email or web address] [email or web address] [facility] Pager [phone] 22/06 Pager ,BS, and Brock 1500 22/06 [place] Pager [phone] 05/16/22 1121 Clinical Encounter Type Visited With Patient Visit Type Introduction Pastoral Time Spent 15 min Referral Other (See Comment) (Rounding) Spiritual Assessment Spiritual Observation Spirituality helpful;Identifies as (see comment) (Gnosticist) Emotional Observation Coping well Hope Observation Hopeful and accepting Support Observation By Family Interventions Provided Active listening;Supportive presence Facilitated Verbalization of feelings;Sharing of life story;Identifying support system Explored Expectations Trade Recruiter Education Trade Recruiter Service Available Yes Educated Patient Outcomes Patient Outcomes Articulated purpose/meaning Plan of Care Continue Visiting PRN Internal Medicine Daily Progress Note Patient: George Styles, 1970, [id number] Physician: Nishant Gamez MD, PGY2, Pager #[phone], [email or web address] Subjective/Interval History: Overall feeling okay this morning. [...] 2019 for alcoholic cirrhosis/ESRD follows with Dr Munoz. 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 [...] Supervision Transfer Assessment: Sit to Stand Transfer [place] Level: Sit->Stand: independent Skilled Intervention/Details: Sit->Stand: x1 from EOB Stand to Sit Transfer [place] Level: Stand->Sit: supervision Assistive Device: Stand->Sit: armed chair Skilled Rationale: Controlled descent for sitting, Verbal cues Gait/Functional Mobility: Gait Assessment [place] Level: Gait: supervision Assistive Device: Gait: gait belt Gait Distance (feet): 200 Gait Deviations Identified: decreased grace, decreased step length, decreased stride length Gait Skilled Rationale: verbal, upright posture Skilled Intervention/Details - Gait: Pt with steady gait without LOB or complaints of SOB. Stairs: Stairs Assessment New Roads Level: Stair Negotiation: stand-by assist Assistive Device: Stair Negotiation: gait belt, left rail (ascending) Number of stairs: 9 Stairs Skilled Rationale: reciprocal pattern Outcome Score(s): CURRENT [facility] Basic Mobility Inpatient Short Form Turning over in bed: 4 - No Assistance Sitting/standing from chair: 4 - No Assistance Moving from lying on back to sittin - No Assistance Moving to and from bed to chair: 4 - No Assistance Walk in hospital room: 3 - A Little Assistance Climbing 3-5 steps with a railin - A Little Assistance CURRENT [facility] Mobility Raw Score: 22 CURRENT [facility] Mobility Functional Limitation/Modifier: 20.91% Currently Impaired [...] reported no concerns with discharging home with gibson support. 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 IADL History IADLs: independent Primary Language: Greenlandic Home Management Skills: independent Meal Prep Responsibility: [...] Assessment: Transfer Assessment: Sit to Stand Transfer New Roads Level: Sit->Stand: independent Skilled Rationale: Cues for increased safety Skilled Intervention/Details: Sit->Stand: x1 EOB Stand to Sit Transfer New Roads Level: Stand->Sit: supervision Assistive Device: Stand->Sit: gait belt, armed chair Skilled Rationale: Verbal cues, Controlled descent for sitting, Cues for increased safety Skilled Intervention/Details: Stand->Sit: cues for hand placement and controlled descent Functional Mobility: Functional Mobility New Roads Level: Functional Mobility/Gait: stand-by assist Assistive Device: Functional Mobility/Gait: gait belt Functional Mobility Distance: Distance needed for limited community mobility Functional Mobility Deficits: Activity tolerance, Balance, Decreased step length, Generalized weakness Functional Mobility Skilled Rationale: Verbal cues, Facilitate postural control Skilled Intervention/Details - Functional Mobility/Gait: cues for upright posture Outcome Score(s): CURRENT [facility] Daily Activity Inpatient Short Form Putting on/Taking Off Lower Body Clothin - A Little Assistance Bathin - A Little Assistance Toiletin - A Little Assistance Putting on/Taking Off Upper Body Clothin - No Assistance Groomin - No Assistance Eatin - No Assistance CURRENT [facility] Activity Raw Score: 21 CURRENT [facility] Activity Functional Limitation/Modifier: 32.79% Currently Impaired [...] DAY SURGERY MAIN OR KIDNEY TRANSPLANT W/O OSAGE NEPHRECTOMY N/A 04/12/2020 Laterality: N/A; Surgeon: LU Palma; Location: [facility] SAME DAY SURGERY MAIN OR OTHER SURGICAL [...] by: Mel Norman OT, OTR/L License #: [id number] pager # [phone] 05/20/2022 Upon discontinuation of Acute Care Occupational Therapy Services or patient discharge from the hospital this note represents the current Occupational Therapy Discharge Summary. documented in this encounter [facility] 05-20-2022 Hospital course Narrative Discharge Summary [...] during his recent hospital stay at [facility]. As you may know, George Styles, [...] Saldana MD Division of Hospital Medicine p: [phone] f: [phone] CONSULTS DURING ADMISSION: IP CONSULT TO SURGERY - UROLOGY IP CONSULT TO NEPHROLOGY - TRANSPLANT (MEDICINE) IP CONSULT TO INTERVENTIONAL RADIOLOGY IP CONSULT TO PHYSICAL THERAPY IP CONSULT TO OCCUPATIONAL THERAPY IP CONSULT TO PHARMACY BEDSIDE DISCHARGE MED DELIVERY IMAGING / PROCEDURES / RESULTS: Should you require further information or copies of results or reports please contact Medical Information Management @ [phone] LABS AT TIME OF DISCHARGE: Lab Results [...] AT DISCHARGE: Zuly Bruno [address] [facility] / [place] [address] MEDICATIONS: Discharge Orders CT ABDOMEN/PELVIS WITHOUT CONTRAST [...] CAPS Generic drug: docusate Follow-up: Zuly Bruno, BLOW DOWN OPERATOR [address] [place] [phone] Schedule an appointment as soon as possible for a visit Follow-up appointment with your, primary care physician within 7-10 days, after discharge. [address] [facility] [phone] Follow up The department of urology will call you with a follow up appointment. LU Ovalle [address] 11[address] [facility] [address] Follow up Please make a follow up appointment with Dr. Munoz's office. Upcoming Appointments (up to five)-Some appointments for Medical Center outpatient clinics or diagnostic testing locations are not displayed below Provider Department Dept Phone 06/04/2022 10:40 AM [facility] Interventional Radiology Clinic [phone] 06/27/2022 1:30 PM [facility] Department of Radiology Arrive at: Arrive to First Floor Registration Desk [phone] 06/27/2022 2:40 PM Ryan Yepez [facility] [place] Arrive at: Arrive to 2nd Floor, Registration [address] 10/31/2022 1:00 PM Steve Munoz [facility] Transplant [facility] [phone] 01/16/2023 9:40 AM TRANSPLANT HEPATOLOGY , [facility] Transplant [facility] [phone] Associated attestation - Daya Saldana MD - [...] nephrostomy tube renal and liver tx recipient 2020 nephrolithiasis in renal graft at level of [...] including counseling and coordination of care. Daya (Aggie Saldana MD Division of Hospital Medicine Pager [phone] documented in this encounter [facility] 05-20-2022 Hospital Discharge instructions Giulia Cavazos [...] be changed by Interventional Radiology. Please call [phone] to schedule this appointment and with any [...] be different from the original. Discussed with [facility] re: possible urine culture performed at [...] Dr Justyn Wen, regarding pt BP 174/77. [facility] 05-18-2022 Note Formatting of this [...] outcomes by discharge/transition of care. Outcome: Ongoing [facility] 05-18-2022 Note Formatting of this [...] 25ml urine output in matias this afternoon. [facility] 05-16-2022 Note [...] with questions. Evan Byrd MD Urology, PGY-2 #[id number] [facility] Work Phone: 05-16-2022 Note [...] hospitalization care will be discharge to home. [facility] 05-16-2022 Consult note Associated Order (s): IP CONSULT TO NEPHROLOGY - TRANSPLANT (MEDICINE) I saw George Styles at the [facility] on 05/16/2022. Reason for Consultation: kidney [...] he was given flomax and sent home. [place] better but noticed more pain and decreased [...] (MEDICINE) I saw George Styles at the [facility] on 05/16/2022. Reason for Consultation: kidney [...] he was given flomax and sent home. [place] better but noticed more pain and decreased [...] states he went to his local ED [facility] and he was put on Flomax and he did improve. Pt states last night he was unable to void with severe right sided abd pain. Pt states nausea and no vomiting or fevers. Pt states he went back to [facility] ED at 0100 and they placed a [...] orthotopic (N/A, 04/12/2020); and kidney transplant w/o ohogamiut nephrectomy (N/A, 04/12/2020). Medications He has a [...] region consistent with portosystemic collateralization via the ohogamiut left renal vein in the setting of [...] spleen, pancreas and adrenals are stable. The ohogamiut kidneys are progressively atrophic bilaterally compared to [...] of 06/14/2020 are no longer present. The ohogamiut distal right ureter is decompressed beyond this [...] with surgical history for renal graft and ohogamiut right urinary drainage, as a discrete ureteroneocystostomy is not identified, and the graft may be draining via a ureteroureterostomy. Urology consultation recommended. 3. The ohogamiut kidneys are bilaterally atrophic, with right renal sinus calcifications consistent with nonobstructing right ohogamiut renal calculi up to 6 mm. Normal [...] PGY-3, Department of Urologic Surgery Pager #: [phone] Associated attestation - Ryan Yepez MD - [...] continue flomax documented in this encounter [facility] 05-16-2022 Note Formatting of this [...] supported Trust Relationship/Rapport: care explained choices provided [facility] 05-16-2022 Note Formatting of this n ote might be different from the original. On admission to R10, a dual RN initial assessment of skin condition was performed by Kallie Lorenzana RN and Sheri Arguelles RN. Skin Assessment: WDL Jose Score: 20 LDA Added:N Kallie Lorenzana RN [facility] 05-15-2022 Emergency department Note Report given to Kallie RN at [facility] 05-15-2022 Emergency department Note Report given to Kallie RN at [facility] Bladder scan with Dr Villatoro at bedside, [...] diagnosed Thursday and was sent home with [facility]. He went back to that ED [...] Laterality: N/A; Surgeon: LU Palma; Location: [facility] SAME DAY SURGERY MAIN OR KIDNEY TRANSPLANT W/O OSAGE NEPHRECTOMY N/A 04/12/2020 Laterality: N/A; Surgeon: LU Palma; Location: [facility] SAME DAY SURGERY MAIN OR OTHER SURGICAL [...] REFLEX TO CULTURE ED Course as of 05/15/22 2030 Marta May 15, 2022 1736 NITRITES, URINE: [...] Schneider MD Resident 05/15/222030 Pt arrives from [facility] with kidney stones. Pt states he had right lower abd pain and right flank pain with blood in his urine since Thursday. Pt states he went to his local ED [facility] and he was put on Flomax and he did improve. Pt states last night he was unable to void with severe right sided abd pain. Pt states nausea and no vomiting or fevers. Pt states he went back to [facility] ED at 0100 and they placed a matias and CT scan completed and multiple kidney stones noted. [facility] as he had liver and kidney transplant in 03/2020. documented in this encounter [facility] 05-15-2022 History and physical note Internal Medicine Admission History & Physical Patient: George Styles, 1970, [id number] Physician: Evan Bennett MD, PGY1, Pager #[phone], GM 4 service Date of face to [...] and tacrolimus 1mg bid. Follows with Dr Munoz and last saw him in the Winter. [...] DAY SURGERY MAIN OR KIDNEY TRANSPLANT W/O OSAGE NEPHRECTOMY N/A 04/12/2020 Laterality: N/A; Surgeon: LU [...] erythema: Skin: No jaundice or rash Neuro: pharmaceutical representative 3-7, 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 Strength grossly equal in muscle groups of the bilateral UEs and LEs. Psych: Ox3, appropriate affect and cognition Data Review: WBC/Hgb/Hct/Plts: 15.81/14.6/46.0/250 (05/15 1436) Na/K+/Phos/Mg/Ca: 138/4.6/--/--/-- (05/15 1436) Bun/Creat/Cl/CO2/Glucose: 32/2.85/105/26/141 (05/15 1436) Imaging: OSH CT 6/17/22 IMPRESSION: 1. Findings surrounding the liver and involymg the portal vein, branches, and collateral vessels within the upper abdomen are suspected be poststirgical chauges consistent with recent liver transplant. Increasing hypertension cannot be excluded. 2. Mild edema within the transplant renal hilum and mild dilation of the calyces may represent narrowing/partial [id number] ofthe ureter and mild hydronephrosis or sequela [...] 2019 for alcoholic cirrhosis/ESRD follows with Dr Munoz. Current IS regimen tac 1mg bid and [...] MD Division of Hospital Medicine [phone] [facility] Work Phone: 05-15-2022 History and physical note Internal Medicine Admission History & Physical Patient: George Styles, 1970, [id number] Physician: Evan Bennett MD, PGY1, Pager #[phone], GM 4 service Date of face to [...] and tacrolimus 1mg bid. Follows with Dr Munoz and last saw him in the Winter. [...] DAY SURGERY MAIN OR KIDNEY TRANSPLANT W/O OSAGE NEPHRECTOMY N/A 04/12/2020 Laterality: N/A; Surgeon: LU [...] erythema: Skin: No jaundice or rash Neuro: pharmaceutical representative 3-7, 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 Strength [...] dilation of the calyces may represent narrowing/partial [id number] ofthe ureter and mild hydronephrosis or sequela [...] 2019 for alcoholic cirrhosis/ESRD follows with Dr Munoz. Current IS regimen tac 1mg bid and [...] Medicine [id number] documented in this encounter [facility] 05-15-2022 Emergency department Note Bladder scan with Dr Villatoro at bedside, 14ml noted [facility] 05-15-2022 Consult note Associated Order (s): [...] states he went to his local ED [facility] and he was put on Flomax and he did improve. Pt states last night he was unable to void with severe right sided abd pain. Pt states nausea and no vomiting or fevers. Pt states he went back to [facility] ED at 0100 and they placed a [...] orthotopic (N/A, 04/12/2020); and kidney transplant w/o ohogamiut nephrectomy (N/A, 04/12/2020). Medications He has a [...] region consistent with portosystemic collateralization via the ohogamiut left renal vein in the setting of [...] spleen, pancreas and adrenals are stable. The ohogamiut kidneys are progressively atrophic bilaterally compared to [...] of 06/14/2020 are no longer present. The ohogamiut distal right ureter is decompressed beyond this [...] with surgical history for renal graft and ohogamiut right urinary drainage, as a discrete ureteroneocystostomy is not identified, and the graft may be draining via a ureteroureterostomy. Urology consultation recommended. 3. The ohogamiut kidneys are bilaterally atrophic, with right renal sinus calcifications consistent with nonobstructing right ohogamiut renal calculi up to 6 mm. Normal [...] PGY-3, Department of Urologic Surgery Pager #: [phone] Associated attestation - Ryan Yepez MD - [...] future before surgical intervention --may continue flomax [facility] Work Phone: 05-15-2022 Emergency department Note Advised Dr Schneider concerning no urine output via matias catheter. [facility] Emergency department Note ED Attending George Styles has a past medical history of Acute renal failure, CAD (coronary artery disease), Cirrhosis, Dialysis patient, End stage renal disease (06/01/2018), Essential hypertension, benign, Hepatic encephalopathy, History of blood transfusion, and Liver cirrhosis. Presents with a chief complaint of kidney stone and diagnosed Thursday and was sent home with [facility]. He went back to that ED and found to have a 6mm stone that is obstructing. He had a matias catheter placed and transferred here for further evaluation. He has BP 140/66 Pulse 78 Temp 98.3 F (36.8 C) (Oral) Resp 16 Ht 1.702 m (5' 7 ) SpO2 96% BMI 31.86 kg/m Smoking Status Former Smoker Impression: Right flank pain, AFYE, stone, hx of transplant liver and kidney [...] urine via matias since arrival to room. [facility] [...] DAY SURGERY MAIN OR KIDNEY TRANSPLANT W/O OSAGE NEPHRECTOMY N/A 04/12/2020 Laterality: N/A; Surgeon: LU [...] incorrections. Matt Schneider MD Resident 05/15/222030 [facility] Work Phone: 05-15-2022 Emergency department Note Pt arrives from [facility] with kidney stones. Pt states he had right lower abd pain and right flank pain with blood in his urine since Thursday. Pt states he went to his local ED [facility] and he was put on Flomax and he did improve. Pt states last night he was unable to void with severe right sided abd pain. Pt states nausea and no vomiting or fevers. Pt states he went back to [facility] ED at 0100 and they placed a [...] Required: No Mailing/Pickup Date: 03/17/2022 Shipping Address: [address] [place] [address] 179 Contact Info: Specialty ([place]) [phone] [facility] [phone] [facility] [phone] David [phone] Bedside Delivery ([facility]) [phone] documented in this encounter [facility] [...] Goal Progress: Satisfactory Contact Info: Specialty ([place]) [phone] Jakob [phone] [facility] [phone] David [phone] Bedside Delivery ([facility]) [phone] [facility]: Call Information: Date [...] Home Signature Required: Yes Shipping Address: [address] [place] [id number] Contact Info: Specialty ([place]) [phone] Jakob [phone] [facility] [phone] David [phone] Bedside Delivery ([facility]) [phone] documented in this encounter [facility] Evaluation note Diagnosis FAYE (acute kidney injury)- Primary Acute kidney failure, unspecified Hydronephrosis due to obstruction of ureteral orifice Hydronephrosis due to obstruction of ureteral orifice FAYE (acute kidney injury) Acute kidney failure, unspecified [facility] Diagnosis Follow-up exam- Primary Unspecified follow-up examination [facility] Diagnosis Immunosuppressed status- Primary Unspecified disorder of immune mechanism Kidney replaced by transplant Liver replaced by transplant Abnormal blood chemistry Other abnormal blood chemistry High risk medication use Encounter for long-term (current) use of other medications Aftercare following organ transplant Liver transplant recipient [facility] Diagnosis Attention to nephrostomy- Primary [facility] Diagnosis Other hydronephrosis- Primary [facility] Diagnosis FAYE (acute kidney injury) Acute kidney failure, unspecified [facility] Diagnosis Other hydronephrosis- Primary -donor kidney transplant recipient Kidney replaced by transplant [facility] Diagnosis Other hydronephrosis [facility] Diagnosis 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) Encounter for screening for malignant neoplasm of prostate Special screening for malignant neoplasm of prostate [facility] Diagnosis Abnormal blood chemistry- Primary Other abnormal blood chemistry Liver transplant recipient Kidney replaced by transplant Immunosuppressed status Unspecified disorder of immune mechanism Aftercare following organ transplant [facility] Diagnosis Kidney replaced by transplant- Primary [facility] Diagnosis Immunosuppressed status- Primary Unspecified disorder of immune mechanism Kidney replaced by transplant Aftercare following organ transplant High risk medication use Encounter for long-term (current) use of other medications Other general symptoms and signs Abnormal blood chemistry Other abnormal blood chemistry Hypertension secondary to other renal disorders [facility] Diagnosis Histoplasmosis- Primary Histoplasmosis, unspecified [...] Fever, unspecified [facility] Diagnosis Bilateral lower extremity edema- Primary 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) Atherosclerosis 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) Atherosclerosis of aorta Obesity (BMI 30-39.9) DARLENE (obstructive sleep apnea) Obstructive sleep apnea (adult) (pediatric) Tremor Abnormal involuntary movements Immunocompromised (CMS/HCC) Unspecified immunity deficiency Primary hypertension (CMS/HCC) Unspecified essential hypertension Shortness of breath [facility] Diagnosis Pleural effusion on right- [...] pre-operative examination [facility] Diagnosis Heart failure, diastolic, acute- Primary Acute diastolic heart failure [facility] Consultation (Routine) - New Request Specialty Diagnoses / Procedures Referred By Deni edwards Referred To Contact Interventional Radiology Diagnoses Hydronephrosis due to obstruction of ureteral orifice Daya Saldana MD [address] [place] [phone] Referral ID Status Reason Start Date Expiration Date V isits Requested Visits Authorized [id number] New Request 05/18/2022 06/12/2023 1 1 * Radiology (Emergency) - New Request Specialty Diagnoses / Procedures Referred By Deni edwards Referred To Contact Procedures US RENAL TRANSPLANT SCAN Daya Saldana MD [address] [place] [address] Referral ID Status Reason Start Date Expiration Date V isits Requested Visits Authorized [id number] New Request 05/16/2022 06/10/2023 1 1 * Consultation (Routine) - New Request Specialty Diagnoses / Procedures Referred By Contac t Referred To Contact Urology Diagnoses FAYE (acute kidney injury) Ryan Yepez MD [address] [place] [address] [address] [place] [address] Referral ID Status Reason Start Date Expiration Date V isits Requested Visits Authorized [id number] New Request 05/16/2022 06/10/2023 1 1 * MRI/CAT Scan (Routine) - New Request Specialty Diagnoses / Procedures Referred By Contac t Referred To Contact Diagnoses FAYE (acute kidney injury) Procedures CT ABDOMEN/PELVIS WITHOUT CONTRAST CHG CT SCAN,ABDOMENT AND PELVIS,W/O CONTRAST Ryan Yepez MD [address] [place] [address] [address] [place] [address] Referral ID Status Reason Start Date Expiration Date V isits Requested Visits Authorized [id number] New Request 05/16/2022 06/10/2023 1 1 * (Routine) - Pending Review Specialty Diagnoses / Procedures Referred By Contac t Referred To Contact Procedures PLATELET MONITORING PER PROTOCOL Daya Saldana MD [address] [place] [address] Referral ID Status Reason Start Date Expiration Date V isits Requested Visits Authorized [id number] Pending Review 05/15/2022 06/09/2023 1 1 * (Routine) - Pending Review Specialty Diagnoses / Procedures Referred By Contac t Referred To Contact Procedures DVT/VTE RISK ASSESSMENT Daya Saldana MD [address] [place] [address] Referral ID Status Reason Start Date Expiration Date V isits Requested Visits Authorized [id number] Pending Review 05/15/2022 06/09/2023 1 1 * (Routine) Specialty Diagnoses / Procedures Referred By Contac t Referred To Contact Evan Bennett MD [address] [place] [address] Referral ID Status Reason Start Date Expiration Date Visits Re quested Visits Authorized * (Routine) Specialty Diagnoses / Procedures Referred By Contac t Referred To Contact Evan Bennett MD [address] [place] [address] Referral ID Status Reason Start Date Expiration Date Visits Re quested Visits Authorized [facility] for referral (narrative)* Consultation (Routine) - New Request Specialty Diagnoses / Procedures Referred By Contac t Referred To Contact Sleep Medicine Diagnoses Hypoxia Kevin Prince MD [address], [place] [address] Referral ID Status Reason Start Date Expiration Date V isits Requested Visits Authorized [id number] New Request 09/10/2023 10/04/2024 1 1 * MRI/CAT Scan (Routine) - New Request Specialty Diagnoses / Procedures Referred By Contac t Referred To Contact Diagnoses Histoplasmosis Procedures CT CHEST WITHOUT CONTRAST CHG DIAGNOSTIC COMPUTED TOMOGRAPHY THORAX W/O Kevin Zarate MD [address] [place] [address] Referral ID Status Reason Start Date Expiration Date V isits Requested Visits Authorized [id number] New Request 09/10/2023 10/04/2024 1 1 * Radiology (Routine) - New Request Specialty Diagnoses / Procedures Referred By Contac t Referred To Contact Procedures US RENAL TRANSPLANT SCAN Steve Munoz MB[facility] [address] [place] [address] Referral ID Status Reason Start Date Expiration Date V isits Requested Visits Authorized [id number] New Request 08/29/2023 09/22/2024 1 1 * (Routine) - New Request Specialty Diagnoses / Procedures Referred By Contac t Referred To Contact Procedures PLATELET MONITORING PER PROTOCOL Steve Munoz MBBS [address] [place] [address] Referral ID Status Reason Start Date Expiration Date V isits Requested Visits Authorized [id number] New Request 08/28/2023 09/21/2024 1 1 * (Routine) - New Request Specialty Diagnoses / Procedures Referred By Contac t Referred To Contact Procedures DVT/VTE RISK ASSESSMENT Steve Munoz MBBS [address] [place] [address] Referral ID Status Reason Start Date Expiration Date V isits Requested Visits Authorized [id number] New Request 08/28/2023 09/21/2024 1 1 [facility] Instructions * Patient Instructions - Christin Elizabeth APRN-BLOW DOWN OPERATOR - 10/19/2018 9:21 AM EST You should take an extra dose of the lactulose as needed so that you are having 3-4 bowel movementsdaily. You should start the chemical dependency counseling as soon as possible. If you have questions, call the transplant social media marketing analyst Fidelina Pierson. in this encounter* Patient Instructions - Sophie Cary RN - 10/12/2018 11:09 AM EST You have been seen in the pre-transplant evaluation clinic by Dr. Restrepo and Sophie Cary. Sophie Cary is your pre-appraisal coordinator she can be reached at [phone] at any time for questions during the pre-transplant process. Your evaluation is complete pendin. Abdominal ultrasound. 2. 6 minute walk test. 3. Cardiology evaluation. Additionally, your orthotics prosthetics technician will recommend testing to screen for coronary artery disease. This will be scheduled for you after your cardiology visit. 4. Your coordinator will be requesting record from your last dental visit, colonoscopy and EGD. 5. Please work to complete social work recommendations. Your social media marketing analyst will be contacting you to follow up on your progress. 6. You have also been referred for a kidney transplant. An appointment will be scheduled for you sari evaluated in the kidney transplant clinic after you have satisfied requirements dictated by [employer] company. Once your testing is complete, we [...] ___ Other Name MRN * Christin Elizabeth, CHIEF JAILER-BLOW DOWN OPERATOR - 10/19/2018 9:00 AM EST Formatting of this note may be different from the original. History of Present Illness: Chief Complaint Patient presents with Follow-up Cirrhosis George Styles is a 48 y.o. male who presents to the [facility] today regarding his diagnosis/chief complaint(s) of Cirrhosis secondary to ETOH, with ESRD follows with Dr. Orr. Currently undergoing evaluation for liver/kidney transplant. Has been seen in transplant clinic for eval. Still undergoing pre testing. Diagnosed in April 2018. Last drink was immediately prior to hospital admission in [place] for ACLF. Hospital course notable for ARF [...] (human immunodeficiency virus infection); Hyperlipidemia; Hyperthyroidism; Hypothyroidism; [place] (myocardial infarction); Migraine; DARLENE (obstructive sleep apnea); [...] kidney transplant evaluation. Pt was AOx3. Transplant Retail Sales Manager role/function was explained and reviewed. The patient was informed that the results of this assessment will be shared with the referring provider and the transplant team. The patient verbalized understanding of this information. The [facility] psychosocial assessment consent form has been explained to patient and has been signed. Pt is completing this evaluation with brother (David) in the Outpatient setting. AMRITK educated pt on the benefits of completing/filing advanced directives and resources were offered. Pt identifies with [place]BAPTISM hoahaoism. Pt confirms being a [place] Citizen. Pt.'s primary language is Greenlandic. Pt confirms the ability to read,write, and understand Green[place]ic. Pt denies potential donors. Donor cards and [...] has valid license, does not regularly drive (BLOW DOWN OPERATOR recommends that he not to drive). [...] related disease etoh cirrohosis April dx in [facility] for thirty days. Pt reports learning [...] as well as referred him to pre appraisal coordinator. Pt and support demonstrated moderate understanding [...] Patient's brother David is a self employed director of catering. Additional support includes his other brother Tyshawn and his Mary live fifteen minutes away. Of note Mary is a cane flume watchman for a [employer] is available to assist preparer making department. He confirms being comfortable asking for [...] in 2010, he was employed by the [employer]. He has access to SSDI payment (SSDI [...] treatment after a DUI charge [facility] in [place], court ordered treatment in 2001 and in [...] by patient from his primary medical provider- BLOW DOWN OPERATOR patient was noted as attending an [...] new visit Date of service: 10/12/2018 -Referring traffic circuit engineer for today's consult: -Primary Care Provider: Zuly [...] EST Timed up and go 9.9 seconds Seismographer Left 52.8 pounds Right 44.9 pounds Waist circ 38.5 inches * Sophie Cary, SAMI - 10/12/2018 10:00 AM EST Formatting of this note may be different from the original. Patient George Styles ([id number]), accompanied by his brother, was seen on [...] any further questions. Sophie GUERINN, RN Liver Lead Generation Specialist Etiology: ETOH HCC: No ETOH: Yes [...] Yovani Orr MD [address] [address] Status Reason Specialty Diagnoses / Procedures Referred By Contact Referred To Contact New Request Diagnoses Cirrhosis of liver with ascites, unspecified hepatic cirrhosis type Procedures US ABDOMEN RUQ/LIVER/GB Yovani Orr MD [address] [address] Specialty Diagnoses / Procedures Referred By Contac t Referred To Contact Diagnoses FAYE (acute kidney injury) Procedures CT ABDOMEN/PELVIS WITHOUT CONTRAST CHG CT SCAN,ABDOMENT AND PELVIS,W/O CONTRAST Central Scheduling [address] [place] [address] [place] [address] Referral ID Status Reason Start Date Expiration Date V isits Requested Visits Authorized [id number] Pending Review 05/16/2022 06/10/2023 1 1 Specialty Diagnoses / Procedures Referred By Deni t Referred To Contact Diagnoses Other hydronephrosis Procedures FLUORO IMAGING FOR UROLOGY Ryan Yepez MD [address] [place] [address] Referral ID Status Reason Start Date Expiration Date V isits Requested Visits Authorized [id number] New Request 07/07/2022 08/01/2023 1 1 Specialty Diagnoses / Procedures Referred By Contac t Referred To Contact Procedures DIRECT ADMIT REQUEST Steve Munoz MBBS [address] [place] [address] Referral ID Status Reason Start Date Expiration Date V isits Requested Visits Authorized [id number] New Request 08/28/2023 09/21/2024 1 1 Specialty Diagnoses / Procedures Referred By Contac t Referred To Contact Radiology Diagnoses DARLENE (obstructive sleep apnea) Primary hypertension (CMS/HCC) Bilateral lower extremity edema Shortness of breath Procedures Echocardiogram 2D complete Zuly Bruno NP [address] [place] [address] Referral ID Status Reason Start Date Expiration Date Visits Requested Visits Authorized [id number] Incomplete Perform Procedure 01/06/2024 07/04/2024 1 1 Specialty Diagnoses / Procedures Referred By Contac t Referred To Contact Procedures US IMAGING REGIONAL ANESTHESIA Kehinde Gutierrez MD [address] [place] [address] Referral ID Status Reason Start Date Expiration Date V isits Requested Visits Authorized [id number] New Request 01/22/2024 02/15/2025 1 1 Specialty Diagnoses / Procedures Referred By Contac t Referred To Contact Cardiovascular Medicine Diagnoses Heart failure, diastolic, acute Kelvin Pacheco MD, MBBS [address] [place] [address] Referral ID Status Reason Start Date Expiration Date V isits Requested Visits Authorized [id number] New Request 01/20/2024 02/13/2025 1 1 Specialty Diagnoses / Procedures Referred By Contac t Referred To Contact Procedures US ABDOMEN LIVER DOPPLER US ABDOMEN LIVER TRANSPLANT DOPPLER Timothy Joseph MD [address] [facility] [address] [place] [address] Referral ID Status Reason Start Date Expiration Date V isits Requested Visits Authorized [id number] New Request 01/16/2024 02/09/2025 1 1 Specialty Diagnoses / Procedures Referred By Contac t Referred To Contact Procedures DVT/VTE RISK ASSESSMENT Kelvin Pacheco MD, MBBS [address] [place] [address] Referral ID Status Reason Start Date Expiration Date V isits Requested Visits Authorized [id number] New Request 01/16/2024 02/09/2025 1 1 Specialty Diagnoses / Procedures Referred By Contac t Referred To Contact Procedures PLATELET MONITORING PER PROTOCOL Kelvin Pacheco MD, LU [address] [place] [address] Referral ID Status Reason Start Date Expiration Date V isits Requested Visits Authorized [id number] New Request 01/16/2024 02/09/2025 1 1 Referral ID Status Reason Start Date Expiration Date V isits Requested Visits Authorized [id number] New Request 01/16/2024 02/09/2025 1 1 Specialty Diagnoses / Procedures Referred By Contac t Referred To Contact Procedures ECG Kelvin Pacheco MD, MBBS [address] [place] [address] Referral ID Status Reason Start Date Expiration Date V isits Requested Visits Authorized [id number] New Request 01/16/2024 02/09/2025 1 1 Advance Directives Documents on File Type Date Recorded Patient Protective Services Social Worker Expl anation Advance Directives and Living Will Power of Audio Visual Tech Latest Code Status on File Code Status [...] Yovani Orr MD [address] [address] Status Reason Specialty Diagnoses / Procedures Referre d By Contact Referred To Contact Denied Diagnoses Alcoholic cirrhosis, unspecified whether ascites present Pre-transplant evaluation for liver transplant Procedures MRI ABDOMEN WITH CONTRAST IN MRI, ABDOMEN W/CONTRAST Yovani Orr MD [address] [address] Reason Comments Liver Recipient Evaluation Status Reason Specialty Diagnoses / Procedures Referred By Contact Referred To Contact New Request Transplant / Transplant Surgery Procedures PRE NEW PATIENT Yovani Orr MD [address] [place] [address] Alfredito Restrepo MD [address] [place] [address] Reason Comments Reschedule Reason Comments Outside Medical Records Request Reason Comments Social Work Follow-up Reason Comments Kidney Stone Specialty Diagnoses / Procedures Referred By Contac t Referred To Contact Diagnoses Obstructing kidney stone, s/p kidney transplant 2019 Daya Saldana MD [address] [place] [address] [facility] [address] [place] [address] Referral ID Status Reason Start Date Expiration Date Visits Re quested Visits Authorized [id number] 1 1 Reason Comments Follow-up Reason Comments Kidney Recipient Follow-up Liver Recipient Follow-up Reason Comments Consult Reason Comments New Patient Hospital follow up Specialty Diagnoses / Procedures Referred By Contac t Referred To Contact Urology Diagnoses hosp fu with [address] prior Procedures NEW TO DOC/RET PATIENT Zuly Bruno, BLOW DOWN OPERATOR [address] [place] [address] Ryan Yepez MD [address] [place] [address] Referral ID Status Reason Start Date Expiration Date Visits Re quested Visits Authorized [id number] Closed 06/27/2022 07/22/2023 1 1 Specialty Diagnoses / Procedures Referred By Contac t Referred To Contact Diagnoses FAYE (acute kidney injury) Procedures CT ABDOMEN/PELVIS WITHOUT CONTRAST CHG CT SCAN,ABDOMENT AND PELVIS,W/O CONTRAST Central Scheduling [address] [place] [address] Referral ID Status Reason Start Date Expiration Date V isits Requested Visits Authorized [id number] Pending Review 05/16/2022 06/10/2023 1 1 Reason Comments Follow-up Specialty Diagnoses / Procedures Referred By Contac t Referred To Contact Urology Diagnoses 1 week fu post NT clamp Procedures RETURN PATIENT Zuly Bruno, ROB [address] [place] [address] Ryan Yepez MD [address] [place] [address] Referral ID Status Reason Start Date Expiration Date Visits Requested Visits Authorized [id number] Authorized - 07/07/2022 08/01/2023 2 2 Specialty Diagnoses / Procedures Referred By Contac t Referred To Contact Diagnoses Other hydronephrosis Procedures FLUORO IMAGING FOR UROLOGY Ryan Yepez MD [address] [place] [address] Referral ID Status Reason Start Date Expiration Date V isits Requested Visits Authorized [id number] New Request 07/07/2022 08/01/2023 1 1 Specialty Diagnoses / Procedures Referred By Contac t Referred To Contact Urology Diagnoses 1 week fu post NT clamp Procedures RETURN PATIENT Zuly Bruno, ROB [address] [place] [address] Ryan [facility]pez [facility] [address] [facility] [address] [place] [address] Referral ID Status Reason Start Date Expiration Date Visits Re quested Visits Authorized [id number] Closed 07/07/2022 08/01/2023 2 2 Reason Comments Liver Recipient Follow-up Reason Comments Kidney Recipient Follow-up Reason Comments Kidney Recipient Follow-up Specialty Diagnoses / Procedures Referred By Contac t Referred To Contact Diagnoses Kidney replaced by transplant Steve Munoz MBBS [address] [place] [address] [facility] [address] [place] [address] Referral ID Status Reason Start Date Expiration Date Visits Re quested Visits Authorized [id number] 1 1 Specialty Diagnoses / Procedures Referred By Deni edwards Referred To Contact Diagnoses Pleural effusion on right PNEUMONIA- HX LIVER AND KIDNEY TRANSPLANT Kevin Prince MD [address] [place] [address] [facility] [address] [place] [address] Referral ID Status Reason Start Date Expiration Date Visits Re quested Visits Authorized [id number] 1 1 Reason Comments New Patient Specialty Diagnoses / Procedures Referred By Deni edwards Referred To Contact Cardiovascular Medicine Diagnoses Heart failure, diastolic, acute Kelvin Pacheco MD, MBBS [address] [place] [address] Referral ID Status Reason Start Date Expiration Date Visits Requested Visits Authorized [id number] Authorized - 01/20/2024 02/13/2025 5 5 (unrecognized sect ion and content) No Status Records FoundNo Status Records FoundNo Status Records FoundNo Status Records FoundNo Status Records FoundNo Status Records Found INFORMATION SOURCE (unrecogn ized section and content) DATE CREATED AUTHOR 01/07/2020 [facility] DATE CREATED AUTHOR AUTHOR'S ORGANIZ ATION 01/27/2021 [facility] DATE CREATED AUTHOR AUTHOR'S ORGANIZ ATION 04/13/2023 [facility] DATE CREATED AUTHOR AUTHOR'S ORGANIZ ATION 05/11/2023 [facility] DATE CREATED AUTHOR AUTHOR'S ORGANIZ ATION 03/02/2024 [facility] EPIC DATE CREATED AUTHOR AUTHOR'S ORGANIZ ATION 03/02/2024 [facility] Care Teams (unrecognized sec tion and content) Social Organization Professor Relationship Specialty Start Date End Date Zuly Bruno, ROB PCP - General 07/19/18 Comfort Rivera, [address] [place] [address] Pharmacist Pharmacist 05/16/20 Angel Carpio [facility],PharmD Pharmacist Pharmacist 05/16/20 Te Leigh [facility],PharmD Pharmacist Pharmacist 01/09/21 Social Organization Professor Relationship Specialty Start Date End Date Zuly Bruno CNP PCP - General 07/19/18 Tawana Riverabriana Che, [facility] [address] [facility] [address] [place] [address] Pharmacist Pharmacist 05/16/20 Angel Carpio [facility],PharmD Pharmacist Pharmacist 05/16/20 Te Leigh [facility],PharmD Pharmacist Pharmacist 01/09/21 Social Organization Professor Relationship Specialty Start Date End Date Zuly Bruno CNP PCP - General 07/19/18 Social Organization Professor Relationship Specialty Start Date End Date Zuly Bruno CNP PCP - General 07/19/18 Social Organization Professor Relationship Specialty Start Date End Date Zuly Bruno CNP PCP - General 07/19/18 Social Organization Professor Relationship Specialty Start Date End Date Zuly Bruno CNP PCP - General 07/19/18 Social Organization Professor Relationship Specialty Start Date End Date Zuly Bruno CNP PCP - General 07/19/18 Social Organization Professor Relationship Specialty Start Date End Date Zuly Bruno CNP PCP - General 07/19/18 Social Organization Professor Relationship Specialty Start Date End Date Zuly Bruno CNP PCP - General 07/19/18 Social Organization Professor Relationship Specialty Start Date End Date Zuly Bruno CNP PCP - General 07/19/18 Social Organization Professor Relationship Specialty Start Date End Date Zuly Bruno CNP PCP - General 07/19/18 Social Organization Professor Relationship Specialty Start Date End Date FloreslatishaZuly tipton CNP PCP - General 07/19/18 Social Organization Professor Relationship Specialty Start Date End Date FloreslatishaZuly tipton CNP PCP - General 07/19/18 Social Organization Professor Relationship Specialty Start Date End Date Kristopherlydiajoes eZuly CNP PCP - General 07/19/18 Social Organization Professor Relationship Specialty Start Date End Date FloreslatishaZuly tipton CNP PCP - General 07/19/18 Social Organization Professor Relationship Specialty Start Date End Date Kristopherlydiajose eZuly CNP PCP - General 07/19/18 Social Organization Professor Relationship Specialty Start Date End Date FloreslatishaZuly tipton CNP PCP - General 07/19/18 [place] [address] [place] [address] Infectious Disease Infectious Disease 09/09/23 Social Organization Professor Relationship Specialty Start Date End Date Zuly Bruno CNP PCP - General 07/19/18 Evan White DO [address] [place] [address] Infectious Disease Infectious Disease 09/09/23 Social Organization Professor Relationship Specialty Start Date End Date Zuly Bruno CNP PCP - General 07/19/18 Evan White DO [address] [place] [address] Infectious Disease Infectious Disease 09/09/23 Social Organization Professor Relationship Specialty Start Date End Date Momo Verdugo MD PCP - General Family Medicine 05/21/23 Social Organization Professor Relationship Specialty Start Date End Date Momo Verdugo MD PCP - General Family Medicine 05/21/23 Social Organization Professor Relationship Specialty Start Date End Date Momo Verdugo MD PCP - General Family Medicine 05/21/23 Social Organization Professor Relationship Specialty Start Date End Date Zuly Bruno CNP PCP - General 07/19/18 Evan White DO [address] [place], [place] [id number] Infectious Disease Infectious Disease 09/09/23 Social Organization Professor Relationship Specialty Start Date End Date Zuly Bruno CNP PCP - General 07/19/18 Evan White DO [address] [place] [address] Infectious Disease Infectious Disease 09/09/23 Social Organization Professor Relationship Specialty Start Date End Date Zuly Bruno CNP PCP - General 07/19/18 Evan White DO [address] [place], [place] [address] Infectious Disease Infectious Disease 09/09/23 Social Organization Professor Relationship Specialty Start Date End Date Zuly Bruno CNP PCP - General 07/19/18 Evan White DO [address] [place], [place] [address] Infectious Disease Infectious Disease 09/09/23 Social Organization Professor Relationship Specialty Start Date End Date Zuly Bruno CNP PCP - General 07/19/18 Evan White DO [address] [place] [address] Infectious Disease Infectious Disease 09/09/23 Scheduled Active and Recently Administ ered Medications (unrecognized section and content) Medication Order 05/18/2022 05/19/2022 05/20/2022 allopurinol (ZYLOPRIM) tablet 100 mg 100 mg, Oral, DAILY, First dose (after last modification) on 05/17/22 at 0900, Until Discontinued 0807 (Given - Provider: Mel Hampton RN) 08 (Given - Provider: Josey Braun RN) 0931 (Given - Provider: Leon Cook RN) amLODIPine [...] 08 (Given - Provider: Josey Braun RN) 0930 (Given - Provider: Leon Cook RN) atorvastatin [...] SAMI) 0932 (Given - Provider: Leon Cook, SAMI) [...] RN) 0804 (Given - Provider: Josey Braun, RN)1754 (Given - Provider: Josey Braun, RN)205 (Given - Provider: Carolyn Isaac RN) 0742 (Given - Provider: Leon Cook, SAMI)1502 (Given - Provider: Leon Cook, SAMI) losartan [...] half swallowed separately. 08 (Given - Provider: Josye Braun RN) potassium chloride (K-DUR) tablet ER [...] 08 (Given - Provider: Mel Hampton RN) 0806 [...] Isaac RN)1807 (Restarted - Provider: Carolyn Isaac RN)182 (Paused - Provider: Carolyn Isaac RN)182 (Restarted - Provider: Carolyn Isaac RN)192 (Rate/Dose Verify - Provider: Carolyn Isaac RN) 2058 (Stopped - Provider: Carolyn Isaac RN) PRN Medication Order 05/18/2022 05/19/2022 05/20/2022 acetaminophen (TYLENOL) tablet 650 mg 650 mg, Oral, EVERY 6 HOURS NEEDED, Starting on Marta 05/15/22 at 2311, Until e 05/20/22 at 2110, Mild Pain, Moderate Pain, [...] Starting on Marta 05/15/22 at 2206, Until 05/20/22 at 2110, Nausea / Vomiting, 1st line for Nausea/Vomiting ondansetron 4mg/2ml (ZOFRAN) injection 4 mg(Linked Group 1) 4 mg, Intravenous, EVERY 6 HOURS NEEDED, Starting on Marta 05/15/22 at 2206, Until 05/20/22 at 2110, Nausea / Vomiting, 1st line for Nausea/Vomiting oxyCODONE (ROXICODONE) tablet 5 mg(Linked Group 2) 5 mg, Oral, EVERY 4 HOURS NEEDED, Starting on Thu05/16/22 at 0614, Until Thu05/20/22 at 2110, Severe Pain, Moderate Pain 0338 (See Alternative - Provider: Carolyn Isaac RN)0806 (See Alternative - Provider: Mel Hampton, SAMI) 0825 (Given - Provider: Josey Braun, RN)2104 (Given - Provider: Carolyn Isaac RN) [...] dose on 08/29/23 at 0900, Until Discontinued 752 (Given - Provider: Aixa Holden RN) 08 (Given - Provider: Terra Heart, SAMI) 09 (Given - Provider: Cheyanne Mcdonough, SAMI) amLODIPine (NORVASC) tablet 5 mg 5 mg, Oral, EVERY 24 HOURS, First dose on Thu09/03/23 at 2100, Until Discontinued 2035 (Given - Provider: Girish Nunez, SAMI) 2024 (Given - Provider: Carolyn Plasencia, SAMI) aspirin chewable tablet 81 mg 81 mg, Oral, DAILY, First dose on 08/29/23 at 0900, Until Discontinued 752 (Given - Provider: Aixa Holden RN) 08 (Given - Provider: Terra Heart, SAMI) 0957 (Given - Provider: Cheyanne Mcdonough, SAMI) Atorvastatin (LIPITOR) tablet 20 mg 20 mg, Oral, DAILY AT BEDTIME, First dose on Thu08/28/23 at 2100, Until Discontinued 2100 (Hold - Provider: Girihs Nunez RN - Reason: Other) 2100 (Automatically Held) 1645 (Unheld by provider - Provider: System Discharge) faMOTIdine (PEPCID) tablet 20 mg (CANCELED) 20 mg, Oral, 2 TIMES DAILY, First dose on Thu08/28/23 at 1800, Until Discontinued 0753 (Given - Provider: Aixa Holden RN) Gabapentin (NEURONTIN) capsule 400 mg 400 mg, Oral, DAILY AT BEDTIME, First dose on Thu08/28/23 at 2100, Until Discontinued 2035 (Given - Provider: Girish Nunez RN) 202 (Given - Provider: Carolyn Plasencia RN) Heparin [...] Holden RN) 0617 (Given - Provider: Girish Reidmiller, RN)1805 (Given - Provider: Terra Heart RN) [...] RN)2035 (Given - Provider: Girish Nunez RN) 0829 (Given - Provider: Terra Heart RN)2024 (Given - Provider: Carolyn Plasencia, SAMI) 0958 [...] DAILY, First dose (after last modification) on Marta 09/10/23 at 0900, Until Discontinued, Swallow tablets whole; [...] Nunez, RN) 2205 (Given - Provider: Carolyn Plasencia [...] at 0900, Until Discontinued, On hold since [facility] 01/21/2024 at 0802 until manually unheld 0802 [...] Discontinued 08 (Given - Provider: Erica Gudino RN)1619 (Given - Provider: Dillon Lyman, SAMI) 0841 (Given - Provider: Terra Heart, SAMI)1053 (JAN Hold - Provider: Automatic Transfer - Reason: Transfer to a Procedural area)1414 (JAN Unhold - Provider: Automatic Transfer)1806 (Given - Provider: Terra Heart RN) 0920 [...] Procedural area)1414 (JAN Unhold - Provider: Automatic Transfer)2008 (Given - Provider: Tati Ahmadi, SAMI) Itraconazole (SPORANOX) oral solution 100 mg 100 [...] Procedural area)1414 (JAN [place] - Provider: Automatic Transfer)2008 (Given [...] if alternate route or dose is needed. 08 (Given - Provider: Erica Gudino RN)2033 (Given - Provider: Tati Ahmadi RN) 0841 (Given - Provider: [facility]ra [facility] RN)1053 (JAN Hold - Provider: Automatic Transfer - Reason: Transfer to a Procedural area)1414 (JAN [place] - Provider: Automatic Transfer)2008 (Given - Provider: Tati Ahmadi RN) 0920 (Given - Provider: [facility] RN) Sulfamethoxazole-trime thoprim (BACTRIM DS) 800-160 MG per tablet 1 tablet 1 tablet, Oral, THREE TIMES WEEKLY (Once per day on Thursday), First dose on Thu01/18/24 at 0900, Until Discontinued 0846 (Given - Provider: [facility] RN)1053 (JAN Hold - Provider: Automatic Transfer - Reason: Transfer to a Procedural area)1414 (JAN [place] - Provider: Automatic Transfer) tacrolimus (PROGRAF) susp 0.2 mg 0.2 mg, Oral, CUSTOM FREQUENCY (Once per day on Thursday), First dose on 01/16/24 at 0900, Until Discontinued, Caution check route of administration. For sublingual administration, place liquid under tongue and allow absorption. 0842 (Given - Provider: Erica Gudino RN) 1053 (JAN Hold - Provider: Automatic Transfer - Reason: Transfer to a Procedural area)1414 ([facility] [place] - Provider: Automatic Transfer) 0923 (Given [...] Reason: Transfer to a Procedural area)1414 ([facility] [place] - Provider: Automatic Transfer) [...] (Given - Provider: Terra [facility] RN)1053 ([facility] Hold - Provider: Automatic Transfer - Reason: Transfer to a Procedural area)1414 ([facility] [place] - Provider: Automatic Transfer) [...] all sources in 24 hours. 1053 ([facility] Hold - Provider: Automatic Transfer - Reason: Transfer to a Procedural area)1414 ([facility] [place] - Provider: Automatic Transfer)1806 (Given - Provider: [facility], SAMI)2353 (Given - Provider: Tati Ahmadi RN) alum/mag hydrox.-simethicone oral suspension 30 mL 30 mL, Oral, EVERY 6 HOURS NEEDED, Starting on 01/16/24 at 0202, Until 01/23/24 at 1752, Indigestion, Per 5 mL is equivalent to: (Alum-Mag Hydroxide 200-225 mg and Simethicone 20 mg) and (Alum-Mag Hydroxide 200-200 mg and Simethicone 20 mg) 1053 ([facility] Hold - Provider: Automatic Transfer - Reason: Transfer to a Procedural area)1414 ([facility] [place] - Provider: Automatic Transfer) guaiFENesin (ROBITUSSIN) oral solution 400 mg 400 mg, Oral, EVERY 6 HOURS NEEDED, Starting on 01/16/24 at 0202, Until 01/23/24 at 1752, Cough, Congestion 1053 ([facility] Hold - Provider: Automatic Transfer - Reason: Transfer to a Procedural area)1414 ([facility] [place] - Provider: Automatic Transfer) [...] Until 01/23/24 at 1752, Insomnia 1053 ([facility] Hold - Provider: Automatic Transfer - Reason: Transfer to a Procedural area)1414 ([facility] [place] - Provider: Automatic Transfer)2355 (Given - Provider: Tati Ahmadi RN) Ondansetron (ZOFRAN) tablet 4 mg(Linked Group 1) 4 mg, Oral, EVERY 6 HOURS NEEDED, Starting on 01/16/24 at 0202, Until 01/23/24 at 1752, Nausea / Vomiting, 1st line for Nausea/Vomiting 1053 ([facility] Hold - Provider: Automatic Transfer - Reason: Transfer to a Procedural area)1414 ([facility] [place] - Provider: Automatic Transfer)1809 (See Alternative - Provider: [facility]ra [facility] RN) 0430 (See Alternative - Provider: Tati Ahmadi RN)1415 (Given - Provider: [facility] RN) Ondansetron 4mg/2ml (ZOFRAN) injection 4 mg(Linked Group 1) 4 mg, Intravenous, EVERY 6 HOURS NEEDED, Starting on 01/16/24 at 0202, Until 01/23/24 at 1752, Nausea / Vomiting, 1st line for Nausea/Vomiting 1053 ([facility] Hold - Provider: Automatic Transfer - Reason: Transfer to a Procedural area)1414 ([facility] [place] - Provider: Automatic Transfer)1809 (Given - Provider: [facility] RN) 0430 (Given - Provider: Tati Ahmadi, SAMI)1415 (See Alternative - Provider: [facility] RN) oxyCODONE (ROXICODONE) tablet 5 mg 5 mg, Oral, EVERY 4 HOURS NEEDED, Starting on 01/22/24 at 1322, Until 01/23/24 at 1752, Moderate Pain, Severe Pain 1441 (Given - Provider: [facility] RN)1926 (Given - Provider: [facility] RN) 0427 (Given - Provider: Tati Ahmadi RN)0917 (Given - Provider: [facility], SAMI)1312 (Given - Provider: [facility], SAMI) Polyethylene glycol (MIRALAX) packet 17 g 17 g, Oral, DAILY NEEDED, Starting on 01/16/24 at 0202, Until 01/23/24 at 1752, Constipation 1st Line 1053 ([facility] Hold - Provider: Automatic Transfer - Reason: Transfer to a Procedural area)1414 ([facility] [place] - Provider: Automatic Transfer) Prochlorperazine (COMPAZINE) injection 10 mg 10 mg, Intravenous, EVERY 6 HOURS NEEDED, Starting on 01/17/24 at 1538, Until 01/23/24 at 1752, Nausea / Vomiting, Refractory Nausea Vomiting, For IV route: dilute dose with 10mL normal saline and give by slow IV push at a rate of 5mg/min. Maximum of 40mg/day. 1053 ([facility] Hold - Provider: Automatic Transfer - Reason: Transfer to a Procedural area)1414 ([facility] [place] - Provider: Automatic Transfer)2349 (Given - Provider: Tati Ahmadi, SAMI) 0916 (Given - Provider: [facility] RN) [...] the intermittent or piggy back medication. 1053 ([facility] Hold - Provider: Automatic Transfer - Reason: Transfer to a Procedural area)1414 ([facility] [place] - Provider: Automatic Transfer) No Frequency [...] BE BASED ON THE PRIMARY CLINICAL RECORDS. [employer] [email or web address] provides no warranty or guarantee of the accuracy or completeness of information in this document.
[2024-03-07 06:57] LABS: Basophils Percent Auto 0.5 % (0.2-2.0); Eosinophils Absolute Auto 0.1 10^3/uL (0.0-0.7); Eosinophils Percent Auto 1.8 % (0.9-7.0); Hematocrit 42.7 % (42.0-54.0); Hemoglobin 13.9 g/dL (14.0-18.0); Lymphocytes Absolute Auto 1.3 10^3/uL (1.2-3.8); Lymphocytes Percent Auto 30.3 % (20.5-60.0); Mean Corpuscular HGB Conc 32.6 g/dL (29.9-35.2); Mean Corpuscular Hemoglobin 28.7 pg (25.9-34.0); Mean Platelet Volume 9.9 fL (9.5-13.5); Monocytes Absolute Auto 0.5 10^3/uL (0.3-0.8); Monocytes Percent Auto 10.6 % (1.7-12.0); Neutrophils Absolute Auto 2.5 10^3/uL (1.4-6.5); Neutrophils Percent Auto 56.8 % (43.0-75.0); Platelet Count 195 10^3/uL (150-450); Red Blood Count 4.85 10^6/uL (4.70-6.10); Red Cell Distribution Width 14.4 % (11.0-15.0); White Blood Count 4.4 10^3/uL (4.0-11.0)
[2024-03-07 07:48] LABS: Alanine Aminotransferase 30 U/L (16-63); Albumin Level 3.9 g/dL (3.4-5.0); Alkaline Phosphatase 143 U/L (46-116); Anion Gap 14.2; Aspartate Amino Transferase 29 U/L (15-37); BUN Creatinine Ratio 12.6; Bilirubin Direct 0.3 mg/dL (0.0-0.2); Bilirubin Total 1.4 mg/dL (0.2-1.0); Calcium 9.3 mg/dL (8.5-10.1); Carbon Dioxide 26.7 mmol/L (21.0-32.0); Chloride 105 mmol/L (98-107); Estimated GFR (African America >60 (>=60); Estimated GFR (Non-African Ame 59 (>=60); Gamma Glutamyl Transpeptidase 25 U/L (15-85); Glucose 104 mg/dL (74-106); Magnesium 2.1 mg/dL (1.8-2.4); Phosphorus 3.6 mg/dL (2.6-4.7); Potassium 3.9 mmol/L (3.5-5.1); Sodium 142 mmol/L (136-145)
[2024-03-09 13:08] LABS: Tacrolimus (FK506), Blood 3.9 ng/mL (2.0-20.0)
== END 2024-03-07 06:38 | disposition home or self-care (01) ==
LOC: LAB 06:39
PROVIDERS: PCP Nurse Practitioner
DX: R79.9 Abnormal finding of blood chemistry, unspecified (principal); Z94.0 Kidney transplant status; Z94.4 Liver transplant status; Z48.298 Encounter for aftercare following other organ transplant
CPT/HCPCS: 36415; 80048; 80197; 82042; 82247; 82248; 82570; 82977; 83735; 84075; 84100; 84156; 84450; 84460; 85025

== ENCOUNTER 2024-03-14 06:45 | Outpatient (OUT) | payer MEDICARE, MEDICAID, SELFPAY ==
--- OUTSIDE RECORDS SUMMARY | 2024-03-14 06:53 | XMS_ITS | CCD ---
Author Organization [facility] Care Team Providers Care Yam Curer Name Role Phone Marissaz, Zuly Unavailable Unavailable Primary Care Provider Unavailabl e KASMANI, ROB Referring Unavailable KASMANI, ROB Referring Unavailable KASMANI, ROB Referring Unavailable RIST, RENA Referring Unavailable JOHARTANA S Referring Unavailable RIST, RENA Referring Unavailable RIST, RENA Referring Unavailable RIST, RENA Referring Unavailable RIST, RENA Referring Unavailable PEPE CAES Attending Unavailable PEPE CASE Admitting Unavailable AICHHOLZ, ZULY Referring Unavailable AICHHOLZ, ZULY Primary Care Unavailable Aichholz [facility], Zuly Primary Care Provider Miguel [facility] Shirin [facility],PharmD, Angel Unavailable Unavailab makayla Leigh [facility],PharmD, Te Unavailable Unavai lable Aicholz [facility], [facility] Primary Care Provider MIGUEL CARDONA Attending Unavailable MISC, DR BURCH Admitting Unavailable MISC, DR BURCH Consulting Unavailable AICHHOLZ, MEDICAL SUPPORT SPECIALIST ZULY Primary Care Unavailable MISC, DR BURCH Attending Unavailable MISC, DR BURCH Admitting Unavailable MISC, DR BURCH Consulting Unavailable AICHHOLZ, MEDICAL SUPPORT SPECIALIST ZULY Primary Care Unavailable MISC, DR BURCH Attending Unavailable ARCELIA PIZARRO Consulting Unavailable KE BURNHAM Attending Unavailable KE BURNHAM Admitting Unavailable DR MÓNICA JIMENEZ Consulting Unavailable AICHHOLZ, MEDICAL SUPPORT SPECIALIST ZULY Primary Care Unavailable KE BURNHAM Consulting Unavailable MISC, DR BURCH Consulting Unavailable MISC, DR BURCH Attending Unavailable AICHHOLZ, MEDICAL SUPPORT SPECIALIST ZULY Primary Care Unavailable MISC, DR DOCTOR Admitting Unavailable MISC, DR DOCTOR Consulting Unavailable MISC, DR DOCTOR Attending Unavailable AICHHOLZ, MEDICAL SUPPORT SPECIALIST ZULY Primary Care Unavailable MISC, DOCTOR Admitting Unavailable MISC, DR DOCTOR Consulting Unavailable AICHHOLZ, MEDICAL SUPPORT SPECIALIST ZULY Primary Care Unavailable MISC, DR DOCTOR Admitting Unavailable MISC, DR DOCTOR Attending Unavailable MELINDA, DR GEORGE Munoz Consulting Unavailable MELINDA, DR GEORGE Munoz Attending Unavailable AICHHOLZ, MEDICAL SUPPORT SPECIALIST ZULY Primary Care Unavailable MELINDA, DR GEORGE Munoz Admitting Unavailable NAUN ., KE Consulting Unavailable MIRANDA, LYNDSAY Consulting Unavailable MELINDA, DR GEORGE Munoz Consulting Unavailable NAUN ., KE Attending Unavailable NAUN ., KE Admitting Unavailable AICHHOLZ, MEDICAL SUPPORT SPECIALIST ZULY Primary Care Unavailable NAUN ., KE Consulting Unavailable GIAN HERRING Consulting Unavailable AICHHOLZ, MEDICAL SUPPORT SPECIALIST ZULY Consulting Unavailable AICHHOLZ, MEDICAL SUPPORT SPECIALIST ZULY Attending Unavailable AICHHOLZ, MEDICAL SUPPORT SPECIALIST ZULY Admitting Unavailable AICHHOLZ, MEDICAL SUPPORT SPECIALIST ZULY Primary Care Unavailable MISC, DR BURCH Consulting Unavailable MISC, DR BURCH Admitting Unavailable MISC, DOCTOR Attending Unavailable AICHHOLZ, MEDICAL SUPPORT SPECIALIST ZULY Primary Care Unavailable MISC, DR DOCTOR Consulting Unavailable MISC, DR DOCTOR Attending Unavailable MISC, DR DOCTOR Admitting Unavailable AICHHOLZ, MEDICAL SUPPORT SPECIALIST ZULY Primary Care Unavailable MISC, DR BURCH Admitting Unavailable MISC, DR BURCH Consulting Unavailable MISC, DR DOCTOR Attending Unavailable AICHHOLZ, MEDICAL SUPPORT SPECIALIST ZULY Primary Care Unavailable MISC, DR DOCTOR Admitting Unavailable MISC, DR DOCTOR Consulting Unavailable AICHHOLZ, MEDICAL SUPPORT SPECIALIST ZULY Primary Care Unavailable MISC, DR DOCTOR Attending Unavailable MISC, DOCTOR Admitting Unavailable MISC, DR DOCTOR Consulting Unavailable AICHHOLZ, MEDICAL SUPPORT SPECIALIST ZULY Primary Care Unavailable MISC, DR DOCTOR Attending Unavailable AICHHOLZ, MEDICAL SUPPORT SPECIALIST ZULY Consulting Unavailable AICHHOLZ, MEDICAL SUPPORT SPECIALIST ZULY Attending Unavailable AICHHOLZ, MEDICAL SUPPORT SPECIALIST ZULY Admitting Unavailable AICHHOLZ, MEDICAL SUPPORT SPECIALIST ZULY Primary Care Unavailable DR MÓNICA JIMENEZ Consulting Unavailable Aichholz [facility], Zuly [facility] Unavailable Aicholz [facility] Primary Care Provider [facility] WHIPPLEolas A Unavailable Momo Verdugo MD Primary Care Provider [phone] AICHHOLZ, ZULY Primary Care Unavailable HAKEEM ALAMO Attending Unavailable SELF, SELF Referring Unavailable AICHHOLZ, ZULY Primary Care Unavailable AICHHOLZ, ZULY Primary Care Unavailable AICHHOLZ, ZULY Primary Care Unavailable AICHHOLZ, ZULY Primary Care Unavailable SELF, SELF Referring Unavailable REBECA GUTIERREZ Attending Unavailable AICHHOLZ, ZULY Primary Care Unavailable YEISON, STEVE S Attending Unavailable YEISON, STEVE S Referring Unavailable AICHHOLZ, ZULY Primary Care Unavailable HAKEEM ALAMO Attending Unavailable EVAN WHITE Referring Unavailabl e AICHHOLZ, ZULY Primary Care Unavailable FARHAD PRINCEO Attending Unavailable CONSULT, INFECTIOUS DISEASE Consulting Unav ailable YEISON, STEVE S Admitting Unavailable YEISON, STEVE S Referring Unavailable AICHHOLZ, ZULY Primary Care Unavailable NIKI, KEVIN Admitting Unavailable AICHHOLZ, ZULY Primary Care Unavailable TARA, KELVIN K Attending Unavailable CONSULT, HEPATOBILIARY Consulting Unavailab le SYSTEM, PROVIDER NOT IN Referring Unavaila ble AICHHOLZ, ZULY Primary Care Unavailable TARA, KEVLIN K Referring Unavailable CANDIE ALMAGUER Attending Unavailable AICHHOLZ, ZULY Primary Care Unavailable CANDIE ALMAGUER Attending Unavailable TARA, KELVIN K Referring Unavailable AICHHOLZ, ZULY Attending Unavailable AICHHOLZ, ZULY Attending Unavailable PALMA PALACIOS Attending Unavailable AICHHOLZ, ZULY Referring Unavailable FIDELINA SANCHEZ Attending Unavailable AICHHOLZ, ZULY Referring Unavailable BRINK, JOHNNA Attending Unavailable AICHHOLZ, ZULY Referring Unavailable BRINK, JOHNNA Attending Unavailable AICHHOLZ, ZULY Referring Unavailable BRINK, JOHNNA Attending Unavailable AICHHOLZ, ZULY Referring Unavailable BRINK, JOHNNA Attending Unavailable AICHHOLZ, ZULY Referring Unavailable AICHHOLZ, ZULY Attending Unavailable Allergies Allergy Classification Reported Allergen(s) Allergy Type Date of Onset Reaction(s) Facility (1 source) Shellfish; Translations: [SHELLFISH DERIVED] Propensity to adverse reactions (disorder) 8 [facility] Repository (20 sources) Shellfish-Derive d Products Propensity to adverse reactions to drug 9 Swelling [facility] (1 source) Shellfish Drug allergy (disorder) [facility] Repository Medications Current Medications Medication Drug [...] Start: 12-30-2021 take 2 tablets by mo [facility] once daily allopurinol 100 MG tablet Indications: Abnormal blood chemistry take 2 tablets by mouth once daily 180 tablet 3 12/30/2021 Active Start: 01-28-2021 take 2 tablets by mo [facility] once daily allopurinol [...] 1 capsule by mouth once daily b sncxeke-P-fmjto acid (NEPHROCAPS) 1 MG capsule Take 1 [...] oral tablet (1 source) Quinolone Antimicrobial Start: 022 End: take 1 tablet by mouth twice daily ciprofloxacin (Cipro) 500 MG tablet Indications: Kidney replaced by transplant , Liver replaced by transplant , Abnormal blood chemistry Take 1 tablet by mouth 2 times daily for 14 days. 28 tablet 0 06/12/2022 06/26/2022 Active Drug or medicament (substance) (1 source) Start: folic acid 1 mg oral tablet (6 sources) take 1 tablet by mouth once daily folic acid (FOLVITE) 1 MG tablet Take 1 mg by mouth daily 0 Active gabapentin 400 mg oral capsule (20 sources) Anti-epileptic Agent Start: 023 End: take 1 capsule by mouth at [...] ankle pain. 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) [...] 09-01-2030 Start: 08-26-2023 take 1 tablet by [facility] twice daily Sulfamethoxazole-trimethoprim 800-160 MG per tablet [...] (5 sources) take 1 tablet by magy once daily vitamin D (CHOLECALCIFEROL) 1000 UNIT [...] on Thu09/03/23 at 1600, Until Discontinued Give just prior [...] on Marta 09/03/23 at 2100, Until Discontinued Start: 05-16-2022 End: 05-20-2022 take 5 mg by mouth once daily 5 mg, Oral, DAILY, First dose on Thu05/16/22 at 0900, Until Discontinued atorvastatin 20 mg oral tablet (20 sources) HMG-CoA Reductase Inhibitor Start: 05-15-2022 End: 05-20-2022 take 20 mg by mouth once daily at bedtime 20 mg, Oral, DAILY AT BEDTIME, First dose on Marta 16/22 at 2215, Until Discontinued Start: 09-06-2020 End: [...] itraconazole Fax results to: Dr. White - [phone] Transplant Neph - [phone] Each 09/10/2023 01/19/2024 Discontinued (Medication Reconciliation (suppress cancel msg)) Start: 09-10-2023 CUSTOM MEDICAT ION Labs to be obtained: 1- Tacrolimus level, trough - collect twice weekly until 09/24/23, then weekly until 10/08/23, them once every two weeks there after. 2- Itraconazole level - obtain once between 09/14-09/18. 3- Chem 6 - Obtain weekly while on itraconazole Fax results to: Dr. White - [phone] Transplant Neph - [phone] Each 0 09/10/2023 Active Diatrizoate (1 [...] mg, Oral, DAILY, F irst dose on Thu09/05/23 at 0900, Until Discontinued Start: 09-04-2023 End: 09-04-2023 take 1 dose by mouth once 800 mg, Oral, ONCE, 1 dose, On Thu09/04/23 at 0800 Start: 05-20-2022 End: 01-16-2023 take 2 tablets by mouth once daily Magnesium Oxide 500 MG tablet Take 2 tablets by mouth daily. 20 tablet 0 05/20/2022 01/16/2023 Discontinued take 2 tablets by mo [facility] in the morning magnesium oxide (Mag-Ox) 400 [...] Oral, DAILY AT BEDTIME NEEDED, Starting on 01/16/24 at 0141, Until Thu01/19/24 at 0016, Insomnia [...] (ROXICODONE) tablet 10 mg polyethylene glycol 3350 24921 mg powder for oral solution (20 sources) Osmotic Laxative Start: 01-16-2024 End: 01-23-2024 17 g, Oral, DAILY NEEDED, Starting on 01/16/24 at 0202, Until 01/23/24 at 1752, Constipation 1st Line Start: 08-28-2023 End: 09-11-2023 17 g, Oral, DAILY NEEDED, Starting on Thu08/28/23 at 1738, Until 09/11/23 at 1645, Constipation [...] rate of 5mg/min. Maximum of 40mg/day. sennosides, mcfp 8.6 mg oral tablet (1 source) Start: [...] Start: 03-14-[address] [facility] every twelve hours tacrolimus (PROGRAF) 0.5 MG capsule Indications: -donor kidney transplant recipient , Liver transplant recipient Take 2 capsules by mouth every 12 hours. 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; Translations: [HALFWAY CURRENT USE OF ASPIRIN] Onset: 06-20-2022 Episodic [...] transplant] Onset: 08-28-2023 Unclassified (1 source) 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; Translations: [Other snf (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] Onset: 08-28-2023 Unclassified (1 source) Hypertension secondary to other renal disorders; Translations: [Hypertension secondary to other renal disorders] Onset: 08-28-2023 Results Test Name Value Interpretation Reference Range Facility B-TYPE NATRIURETIC PEPTIDE ( BRAIN)on 02-26-2024 Natriuretic peptide B (Bld) [Mass/Vol] 72 pg/mL Normal 0-100 [facility] Comment on above: Performed By: #### B LEAD BUSINESS SYSTEMS ANALYST ####[facility] (DEFAULT)[address] [place] [address] Interpretation and review of laboratory results Normal [facility] Natriuretic peptide B (Bld) [Mass/Vol] 72 pg/mL 0 - 100 pg/mL [facility] CHEM 6 (LYTES, BUN CREA)on 0 02-26-2024 Anion gap [Moles/Vol] 13 mmol/L Normal 7-17 [facility] Comment on above: Performed By: #### C HM6 ####[facility] (DEFAULT)[address] [place] [address] Chloride [Moles/Vol] 107 mmol/L Normal 98-108 [facility] Comment on above: Performed By: #### C HM6 ####[facility] (DEFAULT)[address] [place] [address] CO2 [Moles/Vol] 25 mmol/L Normal 21-31 [facility] Comment on above: Performed By: #### C HM6 ####[facility] (DEFAULT)[address] [place] [address] Creatinine [Mass/Vol] 1.23 mg/dL Normal 0.70-1.30 [facility] Comment on above: Performed By: #### C HM6 ####[facility] (DEFAULT)[address] [facility] [place] [place] [address] GFR/1.73 sq M.predicted among non-blacks MDRD (S/P/Bld) [Vol rate/Area] 70 mL/min/{1.73_m2} Normal >=60 [facility] Comment on above: Result Comment: Repo rted eGFR is based on the CKD-EPI 2020 equation using creatinine, age, and sex. Performed By: #### C HM6 ####[facility] (DEFAULT)[address] [place] [place] [address] Potassium [Moles/Vol] 4.2 mmol/L Normal 3.5-5.0 [facility] Comment on above: Performed By: #### C HM6 ####[facility] (DEFAULT)[address] [facility] [place] [address] Sodium [Moles/Vol] 141 mmol/L Normal 135-145 [facility] Comment on above: Performed By: #### C HM6 ####[facility] (DEFAULT)[address] [facility] [place] [place] [address] Urea nitrogen [Mass/Vol] 17 mg/dL Normal 7-25 [facility] Comment on above: Performed By: #### C HM6 ####[facility] (DEFAULT)[address] [place] [place] [address] Urea nitrogen/Creatinine [Mass ratio] 14 mg/mg Normal [facility] Comment on above: Performed By: #### C HM6 ####[facility] (DEFAULT)[address] [place] [place] [address] Anion gap [Moles/Vol] 13 mmol/L 7 - 17 mmol/L [facility] Chloride [Moles/Vol] 107 mmol/L 98 - 10 8 mmol/L [facility] CO2 [Moles/Vol] 25 mmol/L 21 - 31 mmol/L [facility] Creatinine [Mass/Vol] 1.23 mg/dL 0.70 - 1.30 mg/dL [facility] eGFR, CKD-EPI, Male 70 - PINF [facility] Comment on above: Reported eGFR is bas ed on the CKD-EPI 2020 equation using creatinine, age, and sex. Potassium [Moles/Vol] 4.2 mmol/L 3.5 - 5.0 mmol/L [facility] Sodium [Moles/Vol] 141 mmol/L 135 - 145 mmol/L [facility] Urea nitrogen [Mass/Vol] 17 mg/dL 7 - 25 mg/dL [facility] Urea nitrogen/Creatinine [Mass ratio] 14 mg/mg [facility] CBC,PLATELETSon 01-23-2024 Hematocrit (Bld) [Volume fraction] 37.0 % Low 39.6-48.8 [facility] Comment on above: Performed By: #### [facility] ####[facility] (DEFAULT)[address] [place] [address] Hemoglobin (Bld) [Mass/Vol] 12.0 g/dL Low 13.4-16.8 [facility] Comment on above: Performed By: #### [facility] ####[facility] (DEFAULT)[address] [place] [address] MCV (RBC) [Entitic vol] 88.1 fL Normal 79.0-94.5 [facility] Comment on above: Performed By: #### [facility] ####[facility] (DEFAULT)[address] [place] [address] Mean Cell Hgb 28.6 pg Normal 26.1-33.3 [facility] Comment on above: Performed By: #### H EMOGC ####[facility] (DEFAULT)[address] [place] [address] Mean Cell Hgb Conc 32.4 g/dL Normal 31.9-36.5 [facility] Comment on above: Performed By: #### H EMOGC ####[facility] (DEFAULT)[address] [place] [address] Platelet mean volume (Bld) [Entitic vol] 10.4 fL Normal 8.7-12.3 [facility] Comment on above: Performed By: #### H EMOGC ####[facility] (DEFAULT)[address] [place] [address] Platelets (Bld) [#/Vol] 170 10*3/uL Normal 146-337 [facility] Comment on above: Performed By: #### H EMOGC ####[facility] (DEFAULT)[address] [facility] [place] [address] RBC (Bld) [#/Vol] 4.20 10*6/uL Low 4.38-5.83 [facility] Comment on above: Performed By: #### H EMOGC ####[facility] (DEFAULT)[address] [place] [address] RBC Distribution 14.2 % Normal 10.9-14.3 [facility] Comment on above: Performed By: #### H EMOGC ####[facility] (DEFAULT)[address] [place] [address] WBC (Bld) [#/Vol] 3.70 10*3/uL Low 3.73-10.10 [facility] Comment on above: Performed By: #### H EMOGC ####[facility] (DEFAULT)[address] [place] [address] Erythrocyte distribution width (RBC) [Ratio] 14.2 % 10.9 - 14.3 % [facility] Hematocrit (Bld) [Volume fraction] 37.0 % Low 39.6 - 48.8 % [facility] Hemoglobin (Bld) [Mass/Vol] 12.0 g/dL Low 13.4 - 16.8 g/dL [facility] Interpretation and review of laboratory results Abnormal [facility] MCH (RBC) [Entitic mass] 28.6 pg 26.1 - 33.3 pg [facility] MCHC (RBC) [Mass/Vol] 32.4 g/dL 31.9 - 36.5 g/dL [facility] MCV (RBC) [Entitic vol] 88.1 fL 79.0 - 94.5 fL [facility] Platelet mean volume (Bld) [Entitic vol] 10.4 fL 8.7 - 12.3 fL [facility] Platelets (Bld) [#/Vol] 170 10*3/uL 146 - 337 K/uL [facility] RBC (Bld) [#/Vol] 4.20 10*6/uL Low [facility] WBC (Bld) [#/Vol] 3.70 10*3/uL Low 3.73 - 10. 10 K/uL [facility] CHEM 7 (LYTES,BUN,CREA,GLUC) on 01-23-2024 Anion gap [Moles/Vol] 14 mmol/L Normal 7-17 [facility] Comment on above: Performed By: #### NATHANIEL RAMÍREZ, HFP ####[facility] (DEFAULT)[address] [place] [address] Chloride [Moles/Vol] 105 mmol/L Normal 98-108 [facility] Comment on above: Performed By: #### NATHANIEL RAMÍREZ, HFP ####[facility] (DEFAULT)[address] [place] [address] CO2 [Moles/Vol] 25 mmol/L Normal 21-31 [facility] Comment on above: Performed By: #### NATHANIEL RAMÍREZ, HFP ####[facility] (DEFAULT)[address] [place] [address] Creatinine [Mass/Vol] 1.32 mg/dL High 0.70-1.30 [facility] Comment on above: Performed By: #### NATHANIEL RAMÍREZ, HFP ####[facility] (DEFAULT)[address] [place] [address] GFR/1.73 sq M.predicted among non-blacks MDRD (S/P/Bld) [Vol rate/Area] 65 mL/min/{1.73_m2} Normal >=60 [facility] Comment on above: Result Comment: Repo rted eGFR is based on the CKD-EPI 2020 equation using creatinine, age, and sex. Performed By: #### NATHANIEL RAMÍREZ, HFP ####[facility] (DEFAULT)[address] [facility] [place] [place] [address] Glucose [Mass/Vol] 94 mg/dL Normal 70-99 [facility] Comment on above: Performed By: #### NATHANIEL RAMÍREZ, HFP ####[facility] (DEFAULT)[address] [facility] [place] [address] Osmolality [Osmolality] 296 mosm/kg Normal 278-305 [facility] Comment on above: Performed By: #### NATHANIEL RAMÍREZ, HFP ####[facility] (DEFAULT)[address] [place] [address] Potassium [Moles/Vol] 3.8 mmol/L Normal 3.5-5.0 [facility] Comment on above: Performed By: #### NATHANIEL RAMÍREZ, HFP ####[facility] (DEFAULT)[address] [place] [address] Sodium [Moles/Vol] 140 mmol/L Normal 135-145 [facility] Comment on above: Performed By: #### NATHANIEL RAMÍREZ, HFP ####[facility] (DEFAULT)[address] [facility] [place] [place] [address] Urea nitrogen [Mass/Vol] 23 mg/dL Normal 7-25 [facility] Comment on above: Performed By: #### M NATHANIEL BLOOM, HFP ####[facility] (DEFAULT)[address] [place] [address] Urea nitrogen/Creatinine [Mass ratio] 17 mg/mg Normal [facility] Comment on above: Performed By: #### M NATHANIEL BLOOM, HFP ####[facility] (DEFAULT)[address] [place] [address] Anion gap [Moles/Vol] 14 mmol/L 7 - 17 mmol/L [facility] Chloride [Moles/Vol] 105 mmol/L 98 - 10 8 mmol/L [facility] CO2 [Moles/Vol] 25 mmol/L 21 - 31 mmol/L [facility] Creatinine [Mass/Vol] 1.32 mg/dL High 0.70 - 1.30 mg/dL [facility] eGFR, CKD-EPI, Male 65 - PINF [facility] Comment on above: Reported eGFR is bas ed on the CKD-EPI 2020 equation using creatinine, age, and sex. Glucose [Mass/Vol] 94 mg/dL 70 - 99 mg/dL [facility] Osmolality Calc [Osmolality] 296 [facility] Potassium [Moles/Vol] 3.8 mmol/L 3.5 - 5.0 mmol/L [facility] Sodium [Moles/Vol] 140 mmol/L 135 - 145 mmol/L [facility] Urea nitrogen [Mass/Vol] 23 mg/dL 7 - 25 mg/dL [facility] Urea nitrogen/Creatinine [Mass ratio] 17 mg/mg [facility] GLUCOSE POCon 01-23-2024 Glucose [Mass/Vol] 88 mg/dL 70 - 99 mg/dL [facility] POC Sample Type CAPBL [facility] Test performed at ad dress of the patient encounter. [facility] Glucose [Mass/Vol] 191 mg/dL High 70 - 99 mg/dL [facility] Interpretation and review of laboratory results Abnormal [facility] POC Sample Type CAPBL [facility] Test performed at ad dress of the patient encounter. [facility] HEPATIC FUNCTION PANELon Albumin [Mass/Vol] 3.9 g/dL Normal 3.5-5.0 [facility] Comment on above: Performed By: #### M MERLE CHM7, HFP ####[facility] (DEFAULT)[address] [place] [address] ALP [Catalytic activity/Vol] 83 U/L Normal 32-126 [facility] Comment on above: Performed By: #### M MERLE CHM7, HFP ####[facility] (DEFAULT)[address] [place] [address] ALT [Catalytic activity/Vol] 9 U/L Low 10-52 [facility] Comment on above: Performed By: #### M MERLE CHM7, HFP ####[facility] (DEFAULT)[address] [place] [address] AST [Catalytic activity/Vol] 17 U/L Normal 10-39 [facility] Comment on above: Performed By: #### M MERLE CHM7, HFP ####[facility] (DEFAULT)[address] [place] [address] Bilirubin [Mass/Vol] 1.6 mg/dL High <1.5 [facility] Comment on above: Performed By: #### M GO CHM7, HFP ####[facility] (DEFAULT)[address] [place] [address] Bilirubin.indirect [Mass/Vol] 0.4 mg/dL High <0.3 [facility] Comment on above: Performed By: #### M GO, CHM7, HFP ####[facility] (DEFAULT)[address] [place] [address] Protein [Mass/Vol] 6.6 g/dL Normal 6.4-8.3 [facility] Comment on above: Performed By: #### M , CHM7, HFP ####[facility] (DEFAULT)[address] [place] [address] Albumin [Mass/Vol] 3.9 g/dL 3.5 - 5.0 g/dL [facility] ALP [Catalytic activity/Vol] 83 U/L 32 - 126 U/L [facility] ALT [Catalytic activity/Vol] 9 U/L Low 10 - 52 U/L [facility] AST [Catalytic activity/Vol] 17 U/L 10 - 39 U/L [facility] Bilirubin [Mass/Vol] 1.6 mg/dL High NINF - 1.5 mg/dL [facility] Bilirubin.direct [Mass/Vol] 0.4 mg/dL High NINF - 0.3 mg/dL [facility] Protein [Mass/Vol] 6.6 g/dL 6.4 - 8.3 g/dL [facility] ITRACONAZOLE LEVELon 024 Hydroxyitraconazole [Mass/Vol] 7.6 mcg/mL [facility] Comment on above: REFERENCE VALUE No therapeutic range established; activity and serum concentration are similar to parent drug. ADDITIONAL INFORMATION This test was developed and its performance characteristics determined by [facility] in a manner consistent with CLIA requirements. This test has not been cleared or approved by the U.S. Food and Drug Administration. Test Performed by: [facility] - [facility] [address] [place] [address] Forestry Supervisor: Rosendo Bose M.D. Ph.D.; CLIA# [id number] Itraconazole [Mass/Vol] 6.0 mcg/mL [facility] Comment on above: REFERENCE VALUE >0.5 (localized infection), >1.0 (systemic infection) [facility] MAGNESIUMon 01-23-2024 Magnesium [Mass/Vol] 1.8 mg/dL Normal 1.6-2.6 [facility] Comment on above: Performed By: #### M , M7, HFP ####[facility] (DEFAULT)[address] [place] [address] Interpretation and review of laboratory results Normal [facility] Magnesium [Mass/Vol] 1.8 mg/dL 1.6 - 2 .6 mg/dL [facility] No Panel Informationon 01-23 Interpretation and review of laboratory results Abnormal [facility] TACROLIMUS LEVEL, TROUGH (IN E DRUG LEVEL)on 01-23-2024 Interpretation and review of laboratory results Normal [facility] Tacrolimus (Bld) [Mass/Vol] 7.0 ng/mL Bone Marrow Transplant: 4.0-12.0, Therapeutic: 5.0-15.0 [facility] Method performed is a chemiluminescent microparticle immunoasssay on the [employer] Information Delivery Analyst i2000. The range is based on experience at [facility] and users should be aware that target concentrations vary widely depending on concomitant therapy, time post-transplant, and desired degree of immunosuppression. [facility] Tacrolimus, Trough 7.0 ng/mL Normal Bone Susana ow Transplant: 4.0-12.0, Therapeutic: 5.0-15.0 [facility] Comment on above: Order Comment: Pleas e draw at specified interval PRIOR to dose. Do not hold dose to wait for level. Specimens batched twice per day, (M-F) and once per day weekendsMethod performed is a chemiluminescent microparticle immunoasssay on the [employer] Information Delivery Analyst i2000.The range is based on experience at [facility] and users should be aware that target concentrations vary widely depending on concomitant therapy, time post-transplant, and desired degree of immunosuppression. Performed By: #### T ACRO ####[facility] (DEFAULT)[address] [place] [address], [place] [address] CARDIAC RHYTHM (SCANNED)on 0 01-22-2024 [facility] CBC,PLATELETSon 01-22-2024 Hematocrit (Bld) [Volume fraction] 41.5 % Normal 39.6-48.8 [facility] Comment on above: Performed By: #### H EMOGC ####[facility] (DEFAULT)[address] [place] [address], [place] [address] Hemoglobin (Bld) [Mass/Vol] 13.3 g/dL Low 13.4-16.8 [facility] Comment on above: Performed By: #### H EMOGC ####[facility] (DEFAULT)[address] [place] [address], [place] [address] MCV (RBC) [Entitic vol] 86.8 fL Normal 79.0-94.5 [facility] Comment on above: Performed By: #### H EMOGC ####[facility] (DEFAULT)[address] [place] [address] Mean Cell Hgb 27.8 pg Normal 26.1-33.3 [facility] Comment on above: Performed By: #### H EMOGC ####[facility] (DEFAULT)[address] [place] [address] Mean Cell Hgb Conc 32.0 g/dL Normal 31.9-36.5 [facility] Comment on above: Performed By: #### H EMOGC ####[facility] (DEFAULT)[address] [place] [address] Platelet mean volume (Bld) [Entitic vol] 10.5 fL Normal 8.7-12.3 [facility] Comment on above: Performed By: #### H EMOGC ####[facility] (DEFAULT)[address] [place] [address], [place] [address] Platelets (Bld) [#/Vol] 186 10*3/uL Normal 146-337 [facility] Comment on above: Performed By: #### H EMO ####[facility] (DEFAULT)[address] [place] [address] RBC (Bld) [#/Vol] 4.78 10*6/uL Normal 4.38-5.83 [facility] Comment on above: Performed By: #### H EMO ####[facility] (DEFAULT)[address] [place] [address] RBC Distribution 14.1 % Normal 10.9-14.3 [facility] Comment on above: Performed By: #### H EMO ####[facility] (DEFAULT)[address] [place] [address] WBC (Bld) [#/Vol] 3.74 10*3/uL Normal 3.73-10.10 [facility] Comment on above: Performed By: #### H EMO ####[facility] (DEFAULT)[address] [place] [address] Erythrocyte distribution width (RBC) [Ratio] 14.1 % 10.9 - 14.3 % [facility] Hematocrit (Bld) [Volume fraction] 41.5 % 39.6 - 48.8 % [facility] Hemoglobin (Bld) [Mass/Vol] 13.3 g/dL Low 13.4 - 16.8 g/dL [facility] Interpretation and review of laboratory results Abnormal [facility] MCH (RBC) [Entitic mass] 27.8 pg 26.1 - 33.3 pg [facility] MCHC (RBC) [Mass/Vol] 32.0 g/dL 31.9 - 36.5 g/dL [facility] MCV (RBC) [Entitic vol] 86.8 fL 79.0 - 94.5 fL [facility] Platelet mean volume (Bld) [Entitic vol] 10.5 fL 8.7 - 12.3 fL [facility] Platelets (Bld) [#/Vol] 186 10*3/uL 146 - 337 K/uL [facility] RBC (Bld) [#/Vol] 4.78 10*6/uL [facility] WBC (Bld) [#/Vol] 3.74 10*3/uL 3.73 - 10. 10 K/uL [facility] CHEM 7 (LYTES,BUN,CREA,GLUC) on 01-22-2024 Anion gap [Moles/Vol] 13 mmol/L Normal 7-17 [facility] Comment on above: Performed By: #### TJ RAMÍREZ7 ####[facility] (DEFAULT)[address] [place] [address] Chloride [Moles/Vol] 109 mmol/L High 98-108 [facility] Comment on above: Performed By: #### NATHANIEL RAMÍREZ ####[facility] (DEFAULT)[address] [place] [address] CO2 [Moles/Vol] 23 mmol/L Normal 21-31 [facility] Comment on above: Performed By: #### TJ RAMÍREZ7 ####[facility] (DEFAULT)[address] [place] [address] Creatinine [Mass/Vol] 1.10 mg/dL Normal 0.70-1.30 [facility] Comment on above: Performed By: #### TJ RAMÍREZ7 ####[facility] (DEFAULT)[address] [facility] [address] GFR/1.73 sq M.predicted among non-blacks MDRD (S/P/Bld) [Vol rate/Area] 81 mL/min/{1.73_m2} Normal >=60 [facility] Comment on above: Result Comment: Repo rted eGFR is based on the CKD-EPI 2020 equation using creatinine, age, and sex. Performed By: #### NATHANIEL RAMÍREZ ####[facility] (DEFAULT)[address] [place] [address] Glucose [Mass/Vol] 84 mg/dL Normal 70-99 [facility] Comment on above: Performed By: #### Rod BLOOM CHM7 ####[facility] (DEFAULT)[address] [place] [address] Osmolality [Osmolality] 295 mosm/kg Normal 278-305 [facility] Comment on above: Performed By: #### TJ RAMÍREZ7 ####[facility] (DEFAULT)[address] [place] [address] Potassium [Moles/Vol] 4.0 mmol/L Normal 3.5-5.0 [facility] Comment on above: Performed By: #### TJ RAMÍREZ7 ####[facility] (DEFAULT)[address] [place] [address] Sodium [Moles/Vol] 141 mmol/L Normal 135-145 [facility] Comment on above: Performed By: #### NATHANIEL RAMÍREZ ####[facility] (DEFAULT)[address] [place] [address] Urea nitrogen [Mass/Vol] 16 mg/dL Normal 7-25 [facility] Comment on above: Performed By: #### TJ RAMÍREZ7 ####[facility] (DEFAULT)[address] [place] [address] Urea nitrogen/Creatinine [Mass ratio] 15 mg/mg Normal [facility] Comment on above: Performed By: #### TJ RAMÍREZ7 ####[facility] (DEFAULT)[address] [place] [address] Anion gap [Moles/Vol] 13 mmol/L 7 - 17 mmol/L [facility] Chloride [Moles/Vol] 109 mmol/L High 98 - 10 8 mmol/L [facility] CO2 [Moles/Vol] 23 mmol/L 21 - 31 mmol/L [facility] Creatinine [Mass/Vol] 1.10 mg/dL 0.70 - 1.30 mg/dL [facility] eGFR, CKD-EPI, Male 81 - PINF [facility] Comment on above: Reported eGFR is bas ed on the CKD-EPI 2020 equation using creatinine, age, and sex. Glucose [Mass/Vol] 84 mg/dL 70 - 99 mg/dL [facility] Interpretation and review of laboratory results Abnormal [facility] Osmolality Calc [Osmolality] 295 [facility] Potassium [Moles/Vol] 4.0 mmol/L 3.5 - 5.0 mmol/L [facility] Sodium [Moles/Vol] 141 mmol/L 135 - 145 mmol/L [facility] Urea nitrogen [Mass/Vol] 16 mg/dL 7 - 25 mg/dL [facility] Urea nitrogen/Creatinine [Mass ratio] 15 mg/mg [facility] MAGNESIUMon 01-22-2024 Magnesium [Mass/Vol] 2.0 mg/dL Normal 1.6-2.6 [facility] Comment on above: Performed By: #### M MERLE CHM7 ####[facility] (DEFAULT)[address] [place] [address] Interpretation and review of laboratory results Normal [facility] Magnesium [Mass/Vol] 2.0 mg/dL 1.6 - 2 .6 mg/dL [facility] No Panel Informationon 01-22 [facility] PT,INR,PTTon 01-22-2024 aPTT Coag (Bld) [Time] 29.2 s Normal 24.0-34.3 [facility] Comment on above: Performed By: #### P TPTT ####[facility] (DEFAULT)[address] [place] [address] INR Coag (PPP) [Relative time] 1.1 {INR} Normal 0.9-1.1 [facility] Comment on above: Performed By: #### P TPTT ####[facility] (DEFAULT)[address] [place] [address] PT Coag (PPP) [Time] 14.3 s High 11.9-14.2 [facility] Comment on above: Performed By: #### P TPTT ####[facility] (DEFAULT)[address] [place] [address] aPTT Coag (PPP) [Time] 29.2 s [facility] INR Coag (Bld) [Relative time] 1.1 {INR} 0.9 - 1.1 [facility] Interpretation and review of laboratory results Abnormal [facility] PT Coag (PPP) [Time] 14.3 s High [facility] TACROLIMUS LEVEL, TROUGH (IN E DRUG LEVEL)Ordered By: Sheree Jensen on 01-22-2024 Interpretation and review of laboratory results Normal [facility] Tacrolimus (Bld) [Mass/Vol] 7.9 ng/mL Bone Marrow Transplant: 4.0-12.0, Therapeutic: 5.0-15.0 [facility] Method performed is a chemiluminescent microparticle immunoasssay on the [employer] Information Delivery Analyst i2000. The range is based on experience at [facility] and users should be aware that target concentrations vary widely depending on concomitant therapy, time post-transplant, and desired degree of immunosuppression. [facility] TACROLIMUS LEVEL, TROUGH (IN E DRUG LEVEL)on 01-22-2024 Tacrolimus, Trough 7.9 ng/mL Normal Bone Susana ow Transplant: 4.0-12.0, Therapeutic: 5.0-15.0 [facility] Comment on above: Order Comment: Pleas e draw at specified interval PRIOR to dose. Do not hold dose to wait for level. Specimens batched twice per day, (M-F) and once per day weekendsMethod performed is a chemiluminescent microparticle immunoasssay on the [employer] Information Delivery Analyst i2000.The range is based on experience at [facility] and users should be aware that target concentrations vary widely depending on concomitant therapy, time post-transplant, and desired degree of immunosuppression. Performed By: #### T ACRO ####[facility] (DEFAULT)[address] [place] [address] TYPE AND SCREENon 01-22-2024 ABO/RH(D) TYPE Positive [facility] ABO/RH(D) TYPE Positive Normal [facility] Comment on above: Performed By: #### X M ####[facility] (DEFAULT)[address] [place] [address] [place] Unspecified body regionOr dered By: Unassigned Pacs on 01-22-2024 [facility] Work Phone: [place] Unspecified body regionon 01-22-2024 Radiology Study observation (narrative) [facility] CBC,PLATELETSon 01-21-2024 Hematocrit (Bld) [Volume fraction] 39.4 % Low 39.6-48.8 [facility] Comment on above: Performed By: #### H EMOGC ####[facility] (DEFAULT)[address] [facility] [place] [address] Hemoglobin (Bld) [Mass/Vol] 12.7 g/dL Low 13.4-16.8 [facility] Comment on above: Performed By: #### H EMOGC ####[facility] (DEFAULT)[address] [place] [address] MCV (RBC) [Entitic vol] 87.0 fL Normal 79.0-94.5 [facility] Comment on above: Performed By: #### H EMOGC ####[facility] (DEFAULT)[address] [place] [place] [address] Mean Cell Hgb 28.0 pg Normal 26.1-33.3 [facility] Comment on above: Performed By: #### H EMOGC ####[facility] (DEFAULT)[address] [place] [address] Mean Cell Hgb Conc 32.2 g/dL Normal 31.9-36.5 [facility] Comment on above: Performed By: #### H EMOGC ####[facility] (DEFAULT)[address] [place] [place] [address] Platelet mean volume (Bld) [Entitic vol] 10.2 fL Normal 8.7-12.3 [facility] Comment on above: Performed By: #### H EMOGC ####[facility] (DEFAULT)[address] [place] [address] Platelets (Bld) [#/Vol] 157 10*3/uL Normal 146-337 [facility] Comment on above: Performed By: #### H EMOGC ####[facility] (DEFAULT)[address] [place] [address] RBC (Bld) [#/Vol] 4.53 10*6/uL Normal 4.38-5.83 [facility] Comment on above: Performed By: #### H EMO ####[facility] (DEFAULT)[address] [place] [address] RBC Distribution 14.0 % Normal 10.9-14.3 [facility] Comment on above: Performed By: #### H EMOGC ####[facility] (DEFAULT)[address] [place] [address] WBC (Bld) [#/Vol] 3.42 10*3/uL Low 3.73-10.10 [facility] Comment on above: Performed By: #### H EMOGC ####[facility] (DEFAULT)[address] [place] [address] Erythrocyte distribution width (RBC) [Ratio] 14.0 % 10.9 - 14.3 % [facility] Hematocrit (Bld) [Volume fraction] 39.4 % Low 39.6 - 48.8 % [facility] Hemoglobin (Bld) [Mass/Vol] 12.7 g/dL Low 13.4 - 16.8 g/dL [facility] Interpretation and review of laboratory results Abnormal [facility] MCH (RBC) [Entitic mass] 28.0 pg 26.1 - 33.3 pg [facility] MCHC (RBC) [Mass/Vol] 32.2 g/dL 31.9 - 36.5 g/dL [facility] MCV (RBC) [Entitic vol] 87.0 fL 79.0 - 94.5 fL [facility] Platelet mean volume (Bld) [Entitic vol] 10.2 fL 8.7 - 12.3 fL [facility] Platelets (Bld) [#/Vol] 157 10*3/uL 146 - 337 K/uL [facility] RBC (Bld) [#/Vol] 4.53 10*6/uL [facility] WBC (Bld) [#/Vol] 3.42 10*3/uL Low 3.73 - 10. 10 K/uL [facility] CHEM 7 (LYTES,BUN,CREA,GLUC) on 01-21-2024 Anion gap [Moles/Vol] 12 mmol/L Normal 7-17 [facility] Comment on above: Performed By: #### NATHANIEL RAMÍREZ ####[facility] (DEFAULT)[address] [place] [address] Chloride [Moles/Vol] 107 mmol/L Normal 98-108 [facility] Comment on above: Performed By: #### NATHANIEL RAMÍREZ ####[facility] (DEFAULT)[address] [place] [address] CO2 [Moles/Vol] 26 mmol/L Normal 21-31 [facility] Comment on above: Performed By: #### NATHANIEL RAMÍREZ ####[facility] (DEFAULT)[address] [place] [address] Creatinine [Mass/Vol] 1.11 mg/dL Normal 0.70-1.30 [facility] Comment on above: Performed By: #### NATHANIEL RAMÍREZ ####[facility] (DEFAULT)[address] [place] [address] GFR/1.73 sq M.predicted among non-blacks MDRD (S/P/Bld) [Vol rate/Area] 80 mL/min/{1.73_m2} Normal >=60 [facility] Comment on above: Result Comment: Repo rted eGFR is based on the CKD-EPI 2020 equation using creatinine, age, and sex. Performed By: #### TJ RAMÍREZ7 ####[facility] (DEFAULT)[address] [place] [address] Glucose [Mass/Vol] 93 mg/dL Normal 70-99 [facility] Comment on above: Performed By: #### TJ RAMÍREZ7 ####[facility] (DEFAULT)[address] [place] [address] Osmolality [Osmolality] 295 mosm/kg Normal 278-305 [facility] Comment on above: Performed By: #### Rod BLOOM CHM7 ####[facility] (DEFAULT)[address] [place] [address] Potassium [Moles/Vol] 3.9 mmol/L Normal 3.5-5.0 [facility] Comment on above: Performed By: #### Rod BLOOM CHM7 ####[facility] (DEFAULT)[address] [place] [address] Sodium [Moles/Vol] 141 mmol/L Normal 135-145 [facility] Comment on above: Performed By: #### Rod BLOOM CHM7 ####[facility] (DEFAULT)[address] [place] [address] Urea nitrogen [Mass/Vol] 15 mg/dL Normal 7-25 [facility] Comment on above: Performed By: #### Rod BLOOM CHM7 ####[facility] (DEFAULT)[address] [place] [address] Urea nitrogen/Creatinine [Mass ratio] 14 mg/mg Normal [facility] Comment on above: Performed By: #### M , CHM7 ####[facility] (DEFAULT)[address] [place] [address] Anion gap [Moles/Vol] 12 mmol/L 7 - 17 mmol/L [facility] Chloride [Moles/Vol] 107 mmol/L 98 - 10 8 mmol/L [facility] CO2 [Moles/Vol] 26 mmol/L 21 - 31 mmol/L [facility] Creatinine [Mass/Vol] 1.11 mg/dL 0.70 - 1.30 mg/dL [facility] eGFR, CKD-EPI, Male 80 - PINF [facility] Comment on above: Reported eGFR is bas ed on the CKD-EPI 2020 equation using creatinine, age, and sex. Glucose [Mass/Vol] 93 mg/dL 70 - 99 mg/dL [facility] Osmolality Calc [Osmolality] 295 [facility] Potassium [Moles/Vol] 3.9 mmol/L 3.5 - 5.0 mmol/L [facility] Sodium [Moles/Vol] 141 mmol/L 135 - 145 mmol/L [facility] Urea nitrogen [Mass/Vol] 15 mg/dL 7 - 25 mg/dL [facility] Urea nitrogen/Creatinine [Mass ratio] 14 mg/mg [facility] Cardiac catheterization stud yOrdered By: Kelvin Donohue on 01-21-2024 Body surface area Derived from formula 2.08 m2 [facility] Work Phone: [facility] Work Phone: Cardiac catheterization stud yon [...] with fistula occlusion Kelvin Donohue MD, MPH [employer] Analyst of Internal Medicine. Section of Advanced Heart Failure and Transplantation Division of Cardiovascular Diseases [facility] [email or web address] INVASIVE CARDIOVASCULAR PROC EDUREon 01-21-2024 INVASIVE CARDIOVASCULAR PROCEDURE Normal [facility] MAGNESIUMon 01-21-2024 Magnesium [Mass/Vol] 1.5 mg/dL Low 1.6-2.6 [facility] Comment on above: Performed By: #### M [facility] ####[facility] (DEFAULT)[address] [place] [address] Interpretation and review of laboratory results Abnormal [facility] Magnesium [Mass/Vol] 1.5 mg/dL Low 1.6 - 2 .6 mg/dL [facility] No Panel Informationon 01-21 [facility] TACROLIMUS LEVEL, TROUGH (IN E DRUG LEVEL)on 01-21-2024 Interpretation and review of laboratory results Normal [facility] Tacrolimus (Bld) [Mass/Vol] 7.2 ng/mL Bone Marrow Transplant: 4.0-12.0, Therapeutic: 5.0-15.0 [facility] Method performed is a chemiluminescent microparticle immunoasssay on the [employer] Information Delivery Analyst i2000. The range is based on experience at [facility] and users should be aware that target concentrations vary widely depending on concomitant therapy, time post-transplant, and desired degree of immunosuppression. [facility] Tacrolimus, Trough 7.2 ng/mL Normal Bone Susana ow Transplant: 4.0-12.0, Therapeutic: 5.0-15.0 [facility] Comment on above: Order Comment: Pleas e draw at specified interval PRIOR to dose. Do not hold dose to wait for level. Specimens batched twice per day, (M-F) and once per day weekendsMethod performed is a chemiluminescent microparticle immunoasssay on the [employer] Information Delivery Analyst i2000.The range is based on experience at [facility] and users should be aware that target concentrations vary widely depending on concomitant therapy, time post-transplant, and desired degree of immunosuppression. Performed By: #### T ACRO ####[facility] (DEFAULT)[address] [place] [address] CBC,PLATELETSon 01-20-2024 Hematocrit (Bld) [Volume fraction] 38.9 % Low 39.6-48.8 [facility] Comment on above: Performed By: #### H EMOGC ####[facility] (DEFAULT)[address] [address] Hemoglobin (Bld) [Mass/Vol] 12.5 g/dL Low 13.4-16.8 [facility] Comment on above: Performed By: #### H EMOGC ####[facility] (DEFAULT)[address] [address] MCV (RBC) [Entitic vol] 87.2 fL Normal 79.0-94.5 [facility] Comment on above: Performed By: #### H EMOGC ####[facility] (DEFAULT)[address] [place] [address] Mean Cell Hgb 28.0 pg Normal 26.1-33.3 [facility] Comment on above: Performed By: #### H EMOGC ####[facility] (DEFAULT)[address] [place] [address] Mean Cell Hgb Conc 32.1 g/dL Normal 31.9-36.5 [facility] Comment on above: Performed By: #### H EMOGC ####[facility] (DEFAULT)[address] [place] [address] Platelet mean volume (Bld) [Entitic vol] 10.2 fL Normal 8.7-12.3 [facility] Comment on above: Performed By: #### H EMO ####[facility] (DEFAULT)[address] [place] [address] Platelets (Bld) [#/Vol] 166 10*3/uL Normal 146-337 [facility] Comment on above: Performed By: #### H EMO ####[facility] (DEFAULT)[address] [place] [address] RBC (Bld) [#/Vol] 4.46 10*6/uL Normal 4.38-5.83 [facility] Comment on above: Performed By: #### H [facility] ####[facility] (DEFAULT)[address] [place] [address] RBC Distribution 13.8 % Normal 10.9-14.3 [facility] Comment on above: Performed By: #### H [facility] ####[facility] (DEFAULT)[address] [place] [address] WBC (Bld) [#/Vol] 3.79 10*3/uL Normal 3.73-10.10 [facility] Comment on above: Performed By: #### H [facility] ####[facility] (DEFAULT)[address] [place] [address] Erythrocyte distribution width (RBC) [Ratio] 13.8 % 10.9 - 14.3 % [facility] Hematocrit (Bld) [Volume fraction] 38.9 % Low 39.6 - 48.8 % [facility] Hemoglobin (Bld) [Mass/Vol] 12.5 g/dL Low 13.4 - 16.8 g/dL [facility] Interpretation and review of laboratory results Abnormal [facility] MCH (RBC) [Entitic mass] 28.0 pg 26.1 - 33.3 pg [facility] MCHC (RBC) [Mass/Vol] 32.1 g/dL 31.9 - 36.5 g/dL [facility] MCV (RBC) [Entitic vol] 87.2 fL 79.0 - 94.5 fL [facility] Platelet mean volume (Bld) [Entitic vol] 10.2 fL 8.7 - 12.3 fL [facility] Platelets (Bld) [#/Vol] 166 10*3/uL 146 - 337 K/uL [facility] RBC (Bld) [#/Vol] 4.46 10*6/uL [facility] WBC (Bld) [#/Vol] 3.79 10*3/uL 3.73 - 10. 10 K/uL [facility] CHEM 7 (LYTES,BUN,CREA,GLUC) on 01-20-2024 Anion gap [Moles/Vol] 12 mmol/L Normal 7-17 [facility] Comment on above: Performed By: #### M MERLE HFP, CHM7 ####[facility] (DEFAULT)[address] [place] [address] Chloride [Moles/Vol] 105 mmol/L Normal 98-108 [facility] Comment on above: Performed By: #### Rod BLOOM HFP, CHM7 ####[facility] (DEFAULT)[address] [place] [address] CO2 [Moles/Vol] 28 mmol/L Normal 21-31 [facility] Comment on above: Performed By: #### Rod BLOOM HFP, CHM7 ####[facility] (DEFAULT)[address] [place] [address] Creatinine [Mass/Vol] 1.12 mg/dL Normal 0.70-1.30 [facility] Comment on above: Performed By: #### Rod BLOOM HFP, CHM7 ####[facility] (DEFAULT)[address] [place] [address] GFR/1.73 sq M.predicted among non-blacks MDRD (S/P/Bld) [Vol rate/Area] 79 mL/min/{1.73_m2} Normal >=60 [facility] Comment on above: Result Comment: Repo rted eGFR is based on the CKD-EPI 2020 equation using creatinine, age, and sex. Performed By: #### TAVO RAMÍREZ, CHM7 ####[facility] (DEFAULT)[address] [place] [address] Glucose [Mass/Vol] 88 mg/dL Normal 70-99 [facility] Comment on above: Performed By: #### TAVO RAMÍREZ, CHM7 ####[facility] (DEFAULT)[address] [place] [address] Osmolality [Osmolality] 294 mosm/kg Normal 278-305 [facility] Comment on above: Performed By: #### TAVO RAMÍREZ, CHM7 ####[facility] (DEFAULT)[address] [place] [address] Potassium [Moles/Vol] 3.8 mmol/L Normal 3.5-5.0 [facility] Comment on above: Performed By: #### TAVO RAMÍREZ, CHM7 ####[facility] (DEFAULT)[address] [place] [address] Sodium [Moles/Vol] 141 mmol/L Normal 135-145 [facility] Comment on above: Performed By: #### TAVO RAMÍREZ, CHM7 ####[facility] (DEFAULT)[address] [place] [address] Urea nitrogen [Mass/Vol] 15 mg/dL Normal 7-25 [facility] Comment on above: Performed By: #### TAVO RAMÍREZ, CHM7 ####[facility] (DEFAULT)[address] [place] [address] Urea nitrogen/Creatinine [Mass ratio] 13 mg/mg Normal [facility] Comment on above: Performed By: #### TAVO RAMÍREZ, CHM7 ####[facility] (DEFAULT)[address] [place] [address] Anion gap [Moles/Vol] 12 mmol/L 7 - 17 mmol/L [facility] Chloride [Moles/Vol] 105 mmol/L 98 - 10 8 mmol/L [facility] CO2 [Moles/Vol] 28 mmol/L 21 - 31 mmol/L [facility] Creatinine [Mass/Vol] 1.12 mg/dL 0.70 - 1.30 mg/dL [facility] eGFR, CKD-EPI, Male 80 - PINF [facility] Comment on above: Reported eGFR is bas ed on the CKD-EPI 2020 equation using creatinine, age, and sex. Glucose [Mass/Vol] 88 mg/dL 70 - 99 mg/dL [facility] Osmolality Calc [Osmolality] 294 [facility] Potassium [Moles/Vol] 3.8 mmol/L 3.5 - 5.0 mmol/L [facility] Sodium [Moles/Vol] 141 mmol/L 135 - 145 mmol/L [facility] Urea nitrogen [Mass/Vol] 15 mg/dL 7 - 25 mg/dL [facility] Urea nitrogen/Creatinine [Mass ratio] 13 mg/mg [facility] Cardiac catheterization stud yon 01-20-2024 [facility] Radiology Study observation (narrative) [facility] Radiology Study observation (narrative) [facility] EBV BY PCR, QUANTITATIVE,BLO ODOrdered By: Charlotte Jensen on 01-20-2024 EBV DNA ESTELITA+probe (Unsp spec) [#/Vol] NINF [facility] Interpretation and review of laboratory results Normal [facility] This test was perfor med using a real time PCR assay. The dynamic range for this assay is 1000-5,000,000 IU/mL. A result <1000 IU/mL does not rule out the presence of EBV DNA in quantities below the sensitivity of this assay. This test was developed and its performance characteristics determined by [facility]. It has not been cleared or approved by the FDA. The laboratory is regulated under CLIA as qualified to perform high-complexity testing. This test is used for clinical purposes. It should not be regarded as investigational or for research. [facility] HEPATIC FUNCTION PANELon Albumin [Mass/Vol] 3.7 g/dL Normal 3.5-5.0 [facility] Comment on above: Performed By: #### TAVO RAMÍREZ, CHM7 ####[facility] (DEFAULT)[address] [place] [address] ALP [Catalytic activity/Vol] 73 U/L Normal 32-126 [facility] Comment on above: Performed By: #### Rod BLOOM HFP, CHM7 ####[facility] (DEFAULT)[address] [place] [address] ALT [Catalytic activity/Vol] 12 U/L Normal 10-52 [facility] Comment on above: Performed By: #### M MERLE HFP, CHM7 ####[facility] (DEFAULT)[address] [place] [address] AST [Catalytic activity/Vol] 19 U/L Normal 10-39 [facility] Comment on above: Performed By: #### Rod BLOOM HFP, CHM7 ####[facility] (DEFAULT)[address] [place] [address] Bilirubin [Mass/Vol] 2.1 mg/dL High <1.5 [facility] Comment on above: Performed By: #### M MERLE HFP, CHM7 ####[facility] (DEFAULT)[address] [place] [address] Bilirubin.indirect [Mass/Vol] 0.5 mg/dL High <0.3 [facility] Comment on above: Performed By: #### M GO, HFP, CHM7 ####[facility] (DEFAULT)[address] [place] [address] Protein [Mass/Vol] 6.1 g/dL Low 6.4-8.3 [facility] Comment on above: Performed By: #### M MERLE, [facility], CHM7 ####[facility] (DEFAULT)[address] [place] [address] Albumin [Mass/Vol] 3.7 g/dL 3.5 - 5.0 g/dL [facility] ALP [Catalytic activity/Vol] 73 U/L 32 - 126 U/L [facility] ALT [Catalytic activity/Vol] 12 U/L 10 - 52 U/L [facility] AST [Catalytic activity/Vol] 19 U/L 10 - 39 U/L [facility] Bilirubin [Mass/Vol] 2.1 mg/dL High NINF - 1.5 mg/dL [facility] Bilirubin.direct [Mass/Vol] 0.5 mg/dL High NINF - 0.3 mg/dL [facility] Interpretation and review of laboratory results Abnormal [facility] Protein [Mass/Vol] 6.1 g/dL Low 6.4 - 8.3 g/dL [facility] ITRACONAZOLE LEVELon 024 Hydroxyitraconazole 7.6 mcg/mL Normal [facility] Comment on above: Order Comment: Dilan gregory draw level at specified interval PRIOR to dose. Result Comment: ---- REFERENCE VALUE No therapeutic range established; activity and serumconcentration are similar to parent drug. ADDITIONAL INFORMATION This test was developed and its performance characteristicsdetermined by [facility] in a manner consistent with CLIArequirements. This test has not been cleared or approved bythe U.S. Food and Drug Administration.Test Performed by:[facility] - [address] [address] Director: Rosendo Bose M.D. Ph.D.; CLIA# [id number] Performed By: #### Y ITCON ####[facility] (DEFAULT)[address] [place] [address] Itraconazole 6.0 mcg/mL Normal [facility] Comment on above: Order Comment: Pleas e draw level at specified interval PRIOR to dose. Result Comment: ---- REFERENCE VALUE-------------------------->0.5 (localized infection), >1.0 (systemic infection) Performed By: #### Y ITCON ####[facility] (DEFAULT)[address] [place] [address] MAGNESIUMon 01-20-2024 Magnesium [Mass/Vol] 1.6 mg/dL Normal 1.6-2.6 [facility] Comment on above: Performed By: #### M MERLE, [facility], CHM7 ####[facility] (DEFAULT)[address] [place] [address] Interpretation and review of laboratory results Normal [facility] Magnesium [Mass/Vol] 1.6 mg/dL 1.6 - 2 .6 mg/dL [facility] No Panel Informationon 01-20 [facility] POCT CO-OXIMETRYon Hemoglobin (Bld) [Mass/Vol] 12.8 g/dL Low 13.4 - 16.8 g/dL [facility] Interpretation and review of laboratory results Abnormal [facility] Oxyhemoglobin 69 % Low 94 - 98 % [facility] Ordering physician notified. Test performed at address of the patient encounter. [facility] Hemoglobin (Bld) [Mass/Vol] 13.3 g/dL Low 13.4 - 16.8 g/dL [facility] Interpretation and review of laboratory results Abnormal [facility] Oxyhemoglobin 69 % Low 94 - 98 % [facility] Ordering physician notified. Test performed at address of the patient encounter. [facility] PT,INR,PTTon 01-20-2024 aPTT Coag (Bld) [Time] 30.6 s Normal 24.0-34.3 [facility] Comment on above: Performed By: #### P TPTT ####[facility] (DEFAULT)[address] [place] [address] INR Coag (PPP) [Relative time] 1.2 {INR} High 0.9-1.1 [facility] Comment on above: Performed By: #### P TPTT ####[facility] (DEFAULT)[address] [place] [address] PT Coag (PPP) [Time] 15.5 s High 11.9-14.2 [facility] Comment on above: Performed By: #### P TPTT ####[facility] (DEFAULT)[address] [place] [address] aPTT Coag (PPP) [Time] 30.6 s [facility] INR Coag (Bld) [Relative time] 1.2 {INR} High 0.9 - 1.1 [facility] Interpretation and review of laboratory results Abnormal [facility] PT Coag (PPP) [Time] 15.5 s High [facility] TACROLIMUS LEVEL, TROUGH (IN E DRUG LEVEL)Ordered By: Yanira Marcum on 01-20-2024 Interpretation and review of laboratory results Normal [facility] Tacrolimus (Bld) [Mass/Vol] 7.7 ng/mL Bone Marrow Transplant: 4.0-12.0, Therapeutic: 5.0-15.0 [facility] Method performed is a chemiluminescent microparticle immunoasssay on the [employer] Information Delivery Analyst i2000. The range is based on experience at [facility] and users should be aware that target concentrations vary widely depending on concomitant therapy, time post-transplant, and desired degree of immunosuppression. [facility] TACROLIMUS LEVEL, TROUGH (IN E DRUG LEVEL)on 01-20-2024 Tacrolimus, Trough 7.7 ng/mL Normal Bone Susana ow Transplant: 4.0-12.0, Therapeutic: 5.0-15.0 [facility] Comment on above: Order Comment: Pleas e draw at specified interval PRIOR to dose. Do not hold dose to wait for level. Specimens batched twice per day, (M-F) and once per day weekendsMethod performed is a chemiluminescent microparticle immunoasssay on the [employer] Information Delivery Analyst i2000.The range is based on experience at [facility] and users should be aware that target concentrations vary widely depending on concomitant therapy, time post-transplant, and desired degree of immunosuppression. Performed By: #### T ACRO ####[facility] (DEFAULT)[address] [place] [address] CBC,PLATELETSon 01-19-2024 Hematocrit (Bld) [Volume fraction] 37.5 % Low 39.6-48.8 [facility] Comment on above: Performed By: #### H EMOGC ####[facility] (DEFAULT)[address] [place] [address] Hemoglobin (Bld) [Mass/Vol] 12.1 g/dL Low 13.4-16.8 [facility] Comment on above: Performed By: #### H EMOGC ####[facility] (DEFAULT)[address] [place] [address] MCV (RBC) [Entitic vol] 87.8 fL Normal 79.0-94.5 [facility] Comment on above: Performed By: #### H EMOGC ####[facility] (DEFAULT)[address] [place] [address] Mean Cell Hgb 28.3 pg Normal 26.1-33.3 [facility] Comment on above: Performed By: #### H EMOGC ####[facility] (DEFAULT)[address] [place] [address] Mean Cell Hgb Conc 32.3 g/dL Normal 31.9-36.5 [facility] Comment on above: Performed By: #### H EMOGC ####[facility] (DEFAULT)[address] [place] [address] Platelet mean volume (Bld) [Entitic vol] 10.4 fL Normal 8.7-12.3 [facility] Comment on above: Performed By: #### H EMOGC ####[facility] (DEFAULT)[address] [place] [address] Platelets (Bld) [#/Vol] 163 10*3/uL Normal 146-337 [facility] Comment on above: Performed By: #### H EMOGC ####[facility] (DEFAULT)[address] [place] [address] RBC (Bld) [#/Vol] 4.27 10*6/uL Low 4.38-5.83 [facility] Comment on above: Performed By: #### H EMO ####[facility] (DEFAULT)[address] [place] [address] RBC Distribution 13.9 % Normal 10.9-14.3 [facility] Comment on above: Performed By: #### H EMOGC ####[facility] (DEFAULT)[address] [facility] [place] [place] [address] WBC (Bld) [#/Vol] 3.69 10*3/uL Low 3.73-10.10 [facility] Comment on above: Performed By: #### H EMOGC ####[facility] (DEFAULT)[address] [place] [address] Erythrocyte distribution width (RBC) [Ratio] 13.9 % 10.9 - 14.3 % [facility] Hematocrit (Bld) [Volume fraction] 37.5 % Low 39.6 - 48.8 % [facility] Hemoglobin (Bld) [Mass/Vol] 12.1 g/dL Low 13.4 - 16.8 g/dL [facility] Interpretation and review of laboratory results Abnormal [facility] MCH (RBC) [Entitic mass] 28.3 pg 26.1 - 33.3 pg [facility] MCHC (RBC) [Mass/Vol] 32.3 g/dL 31.9 - 36.5 g/dL [facility] MCV (RBC) [Entitic vol] 87.8 fL 79.0 - 94.5 fL [facility] Platelet mean volume (Bld) [Entitic vol] 10.4 fL 8.7 - 12.3 fL [facility] Platelets (Bld) [#/Vol] 163 10*3/uL 146 - 337 K/uL [facility] RBC (Bld) [#/Vol] 4.27 10*6/uL Low [facility] WBC (Bld) [#/Vol] 3.69 10*3/uL Low 3.73 - 10. 10 K/uL [facility] CHEM 7 (LYTES,BUN,CREA,GLUC) on 01-19-2024 Anion gap [Moles/Vol] 14 mmol/L Normal 7-17 [facility] Comment on above: Performed By: #### NATHANIEL RAMÍREZ ####[facility] (DEFAULT)[address] [place] [address] Chloride [Moles/Vol] 106 mmol/L Normal 98-108 [facility] Comment on above: Performed By: #### NATHANIEL RAMÍREZ ####[facility] (DEFAULT)[address] [place] [address] CO2 [Moles/Vol] 24 mmol/L Normal 21-31 [facility] Comment on above: Performed By: #### NATHANIEL RAMÍREZ ####[facility] (DEFAULT)[address] [place] [address] Creatinine [Mass/Vol] 1.13 mg/dL Normal 0.70-1.30 [facility] Comment on above: Performed By: #### Rod BLOOM CHM7 ####[facility] (DEFAULT)[address] [place] [address] GFR/1.73 sq M.predicted among non-blacks MDRD (S/P/Bld) [Vol rate/Area] 78 mL/min/{1.73_m2} Normal >=60 [facility] Comment on above: Result Comment: Repo rted eGFR is based on the CKD-EPI 2020 equation using creatinine, age, and sex. Performed By: #### Rod BLOOM CHM7 ####[facility] (DEFAULT)[address] [place] [address] Glucose [Mass/Vol] 86 mg/dL Normal 70-99 [facility] Comment on above: Performed By: #### Rod BLOOM CHM7 ####[facility] (DEFAULT)[address] [place] [address] Osmolality [Osmolality] 293 mosm/kg Normal 278-305 [facility] Comment on above: Performed By: #### Rod BLOOM CHM7 ####[facility] (DEFAULT)[address] [place] [address] Potassium [Moles/Vol] 3.8 mmol/L Normal 3.5-5.0 [facility] Comment on above: Performed By: #### Rod BLOOM CHM7 ####[facility] (DEFAULT)[address] [place] [address] Sodium [Moles/Vol] 140 mmol/L Normal 135-145 [facility] Comment on above: Performed By: #### Rod BLOOM CHM7 ####[facility] (DEFAULT)[address] [place] [address] Urea nitrogen [Mass/Vol] 16 mg/dL Normal 7-25 [facility] Comment on above: Performed By: #### Rod BLOOM CHM7 ####[facility] (DEFAULT)[address] [place] [address] Urea nitrogen/Creatinine [Mass ratio] 14 mg/mg Normal [facility] Comment on above: Performed By: #### M [facility] ####[facility] (DEFAULT)[address] [place] [address] Anion gap [Moles/Vol] 14 mmol/L 7 - 17 mmol/L [facility] Chloride [Moles/Vol] 106 mmol/L 98 - 10 8 mmol/L [facility] CO2 [Moles/Vol] 24 mmol/L 21 - 31 mmol/L [facility] Creatinine [Mass/Vol] 1.13 mg/dL 0.70 - 1.30 mg/dL [facility] eGFR, CKD-EPI, Male 79 - PINF [facility] Comment on above: Reported eGFR is bas ed on the CKD-EPI 2020 equation using creatinine, age, and sex. Glucose [Mass/Vol] 86 mg/dL 70 - 99 mg/dL [facility] Osmolality Calc [Osmolality] 293 [facility] Potassium [Moles/Vol] 3.8 mmol/L 3.5 - 5.0 mmol/L [facility] Sodium [Moles/Vol] 140 mmol/L 135 - 145 mmol/L [facility] Urea nitrogen [Mass/Vol] 16 mg/dL 7 - 25 mg/dL [facility] Urea nitrogen/Creatinine [Mass ratio] 14 mg/mg [facility] EBV BY PCR, QUANTITATIVE,BLO ODon 01-19-2024 Ebv By Pcr, Quant, Blood <1000 Normal <1000 [facility] Comment on above: Order Comment: This test was performed using a real time PCR assay. The dynamic range for this assay is 1000-5,000,000 IU/mL. A result <1000 IU/mL does not rule out the presence of EBV DNA in quantities below the sensitivity of this assay. This test was developed and its performance characteristics determined by [facility]. It has not been cleared or approved by the FDA. The laboratory is regulated under CLIA as qualified to perform high-complexity testing. This test is used for clinical purposes. It should not be regarded as investigational or for research. Performed By: #### E BVPCR ####[facility] (DEFAULT)[address] [place] [address] HISTOPLASMA AND BLASTOMYCES ANTIGEN, ENZYME IMMUNOASSAY, SERMon 01-19-2024 Histoplasma/Blastomy antonia Ag Result Not detected Not Detected [facility] Comment on above: No antigen from Hist oplasma or Blastomyces detected. False negative results may occur depending on extent of disease, and/or site of infection. Repeat testing on a new specimen if clinically indicated. Histoplasma/Blastomy antonia Ag Value Not detected ng/mL [facility] Comment on above: ADDITIONAL INFORMATION This test was developed and its performance characteristics determined by [facility] in a manner consistent with CLIA requirements. This test has not been cleared or approved by the U.S. Food and Drug Administration. Test Performed by: [facility] [address] [place] [address] Forestry Supervisor: Rosendo Bose M.D. Ph.D.; CLIA# [id number] [facility] MAGNESIUMon 01-19-2024 Magnesium [Mass/Vol] 1.8 mg/dL Normal 1.6-2.6 [facility] Comment on above: Performed By: #### M , CHM7 ####[facility] (DEFAULT)[address] [place] [address] Interpretation and review of laboratory results Normal [facility] Magnesium [Mass/Vol] 1.8 mg/dL 1.6 - 2 .6 mg/dL [facility] No Panel Informationon 01-19 [facility] TACROLIMUS LEVEL, TROUGH (IN E DRUG LEVEL)Ordered By: Raymundo Mehta on 01-19-2024 Interpretation and review of laboratory results Normal [facility] Tacrolimus (Bld) [Mass/Vol] 6.8 ng/mL Bone Marrow Transplant: 4.0-12.0, Therapeutic: 5.0-15.0 [facility] Method performed is a chemiluminescent microparticle immunoasssay on the [employer] Information Delivery Analyst i2000. The range is based on experience at [facility] and users should be aware that target concentrations vary widely depending on concomitant therapy, time post-transplant, and desired degree of immunosuppression. [facility] TACROLIMUS LEVEL, TROUGH (IN E DRUG LEVEL)on 01-19-2024 Tacrolimus, Trough 6.8 ng/mL Normal Bone Susana ow Transplant: 4.0-12.0, Therapeutic: 5.0-15.0 [facility] Comment on above: Order Comment: Pleas e draw at specified interval PRIOR to dose. Do not hold dose to wait for level. Specimens batched twice per day, (M-) and once per day weekendsMethod performed is a chemiluminescent microparticle immunoasssay on the [employer] Delivery Analyst i2000.The range is based on experience at [facility] and users should be aware that target concentrations vary widely depending on concomitant therapy, time post-transplant, and desired degree of immunosuppression. Performed By: #### T ACRO ####[facility] (DEFAULT)[address] [place] [address] US AV fistulaOrdered By: Diana Reyes on 01-19-2024 [facility] Work Phone: US AV fistulaon 01-19-2024 Radiology Study observation (narrative) [facility] AFP TUMOR MARKEROrdered By: Francisca Alaniz on 01-18-2024 AFP.tumor marker [Mass/Vol] ng/mL NINF - 8.1 ng/mL [facility] Comment on above: This test was perfor med on the [employer] IM Immunoassay platform by [employer] which is a two-site sandwich chemiluminescent immunoassay. It is important to note that assays using different manufacturers and/or methods may not be comparable. Interpretation and review of laboratory results Normal [facility] CBC,PLATELETSon 01-18-2024 Hematocrit (Bld) [Volume fraction] 38.4 % Low 39.6-48.8 [facility] Comment on above: Performed By: #### H EMO ####[facility] (DEFAULT)[address] [place] [address] Hemoglobin (Bld) [Mass/Vol] 12.1 g/dL Low 13.4-16.8 [facility] Comment on above: Performed By: #### H EMOGC ####[facility] (DEFAULT)[address] [place] [address] MCV (RBC) [Entitic vol] 88.3 fL Normal 79.0-94.5 [facility] Comment on above: Performed By: #### H EMOGC ####[facility] (DEFAULT)[address] [facility] [place] [place] [address] Mean Cell Hgb 27.8 pg Normal 26.1-33.3 [facility] Comment on above: Performed By: #### H EMOGC ####[facility] (DEFAULT)[address] [facility] [place] [place] [address] Mean Cell Hgb Conc 31.5 g/dL Low 31.9-36.5 [facility] Comment on above: Performed By: #### H EMOGC ####[facility] (DEFAULT)[address] [place] [address] Platelet mean volume (Bld) [Entitic vol] 10.4 fL Normal 8.7-12.3 [facility] Comment on above: Performed By: #### H EMOGC ####[facility] (DEFAULT)[address] [place] [address] Platelets (Bld) [#/Vol] 183 10*3/uL Normal 146-337 [facility] Comment on above: Performed By: #### H EMOGC ####[facility] (DEFAULT)[address] [place] [address] RBC (Bld) [#/Vol] 4.35 10*6/uL Low 4.38-5.83 [facility] Comment on above: Performed By: #### H EMOGC ####[facility] (DEFAULT)[address] [place] [address] RBC Distribution 13.9 % Normal 10.9-14.3 [facility] Comment on above: Performed By: #### H [facility] ####[facility] (DEFAULT)[address] [place] [address] WBC (Bld) [#/Vol] 3.66 10*3/uL Low 3.73-10.10 [facility] Comment on above: Performed By: #### H [facility] ####[facility] (DEFAULT)[address] [place] [address] Erythrocyte distribution width (RBC) [Ratio] 13.9 % 10.9 - 14.3 % [facility] Hematocrit (Bld) [Volume fraction] 38.4 % Low 39.6 - 48.8 % [facility] Hemoglobin (Bld) [Mass/Vol] 12.1 g/dL Low 13.4 - 16.8 g/dL [facility] Interpretation and review of laboratory results Abnormal [facility] MCH (RBC) [Entitic mass] 27.8 pg 26.1 - 33.3 pg [facility] MCHC (RBC) [Mass/Vol] 31.5 g/dL Low 31.9 - 36.5 g/dL [facility] MCV (RBC) [Entitic vol] 88.3 fL 79.0 - 94.5 fL [facility] Platelet mean volume (Bld) [Entitic vol] 10.4 fL 8.7 - 12.3 fL [facility] Platelets (Bld) [#/Vol] 183 10*3/uL 146 - 337 K/uL [facility] RBC (Bld) [#/Vol] 4.35 10*6/uL Low [facility] WBC (Bld) [#/Vol] 3.66 10*3/uL Low 3.73 - 10. 10 K/uL [facility] CHEM 7 (LYTES,BUN,CREA,GLUC) on 01-18-2024 Anion gap [Moles/Vol] 11 mmol/L Normal 7-17 [facility] Comment on above: Performed By: #### C HM7, HFP, MGO, TSHQR ####[facility] (DEFAULT)[address] [place] [address] Chloride [Moles/Vol] 108 mmol/L Normal 98-108 [facility] Comment on above: Performed By: #### C HM7, HFP, MGO, TSHQR ####[facility] (DEFAULT)[address] [facility] [place] [place] [address] CO2 [Moles/Vol] 26 mmol/L Normal 21-31 [facility] Comment on above: Performed By: #### C HM7, HFP, MGO, TSHQR ####[facility] (DEFAULT)[address] [facility] [place] [place] [address] Creatinine [Mass/Vol] 1.00 mg/dL Normal 0.70-1.30 [facility] Comment on above: Performed By: #### C HM7, HFP, MGO, TSHQR ####[facility] (DEFAULT)[address] [facility] [place] [place] [address] eGFR, CKD-EPI, Male > Normal >=60 [facility] Comment on above: Result Comment: Repo rted eGFR is based on the CKD-EPI 2020 equation using creatinine, age, and sex. Performed By: #### C HM7, HFP, MGO, TSHQR ####[facility] (DEFAULT)[address] [place] [address] Glucose [Mass/Vol] 89 mg/dL Normal 70-99 [facility] Comment on above: Performed By: #### C HM7, HFP, MGO, TSHQR ####[facility] (DEFAULT)[address] [facility] [place] [place] [address] Osmolality [Osmolality] 295 mosm/kg Normal 278-305 [facility] Comment on above: Performed By: #### C HM7, HFP, MGO, TSHQR ####[facility] (DEFAULT)[address] [place] [address] Potassium [Moles/Vol] 3.9 mmol/L Normal 3.5-5.0 [facility] Comment on above: Performed By: #### C HM7, HFP, MGO, TSHQR ####[facility] (DEFAULT)[address] [place] [address] Sodium [Moles/Vol] 141 mmol/L Normal 135-145 [facility] Comment on above: Performed By: #### C HM7, HFP, MGO, TSHQR ####[facility] (DEFAULT)[address] [place] [address] Urea nitrogen [Mass/Vol] 16 mg/dL Normal 7-25 [facility] Comment on above: Performed By: #### C HM7, HFP, MGO, TSHQR ####[facility] (DEFAULT)[address] [facility] [place] [place] [address] Urea nitrogen/Creatinine [Mass ratio] 16 mg/mg Normal [facility] Comment on above: Performed By: #### C HM7, HFP, MGO, TSHQR ####[facility] (DEFAULT)[address] [facility] [place] [address] Anion gap [Moles/Vol] 11 mmol/L 7 - 17 mmol/L [facility] Chloride [Moles/Vol] 108 mmol/L 98 - 10 8 mmol/L [facility] CO2 [Moles/Vol] 26 mmol/L 21 - 31 mmol/L [facility] Creatinine [Mass/Vol] 1.00 mg/dL 0.70 - 1.30 mg/dL [facility] eGFR, CKD-EPI, Male - PINF [facility] Comment on above: Reported eGFR is bas ed on the CKD-EPI 2020 equation using creatinine, age, and sex. Glucose [Mass/Vol] 89 mg/dL 70 - 99 mg/dL [facility] Osmolality Calc [Osmolality] [address] [facility] Potassium [Moles/Vol] 3.9 mmol/L 3.5 - 5.0 mmol/L [facility] Sodium [Moles/Vol] 141 mmol/L 135 - 145 mmol/L [facility] Urea nitrogen [Mass/Vol] 16 mg/dL 7 - 25 mg/dL [facility] Urea nitrogen/Creatinine [Mass ratio] 16 mg/mg [facility] Cardiac echo study Procedure Ordered By: Gian Carlos on 01-18-2024 Ao ASC index 1.63 cm/m2 [facility] Work Phone: Ao peak meliton 1.46 m/s [facility] Work Phone: Ao SOV index 1.56 cm/m2 [facility] Work Phone: Ao STJ index 1.25 cm/m2 [facility] Work Phone: Ao VTI 35.74 cm [facility] Work Phone: Ascending aorta 3.39 cm [facility] Work Phone: AV LVOT peak gradient 4 mmHg [facility] Work Phone: AV mean gradient 5 [facility]: AV peak gradient 9 mmHG [facility] Work Phone: AV valve area 3.09 cm2 [facility] Work Phone: AV Velocity Ratio 0.73 [facility] Work Phone: [phone] VEGA (continuity Vmax) 3.01 cm2 [facility] Work Phone: VEGA (continuity VTI) 3.09 cm2 [facility] Work Phone: VEGA index (continuity Vmax) 1.45 m/s [facility] Work Phone: VEGA index (continuity VTI) 1.49 cm2/m2 [facility] Work Phone: Avg e' pk meliton 0.07 m/s [facility] Work Phone: Avg E/e' ratio 19.[address] [facility] Work Phone: Body surface area Derived from formula 2.[address] [facility] Work Phone: BP EF 62 % [facility] Work Phone: DI (Vmax) 0.73 [facility] Work Phone: DI (VTI) 0.74 m/2 [facility] Work Phone: E wave decelartion time 180.[address] [facility] Work Phone: e' lateral pk meliton 0.0789 m/s [facility] Work Phone: e' lateral pk meliton 0.08 [facility] Work Phone: e' septal pk meliton 0.0653 m/s [facility] Work Phone: e' septal pk meliton 0.07 m/s [facility] Work Phone: E/A ratio 2.[address] [facility] Work Phone: E/e' lateral ratio 17.62 [facility] Work Phone: E/e' septal ratio [facility].29 [facility] Work Phone: EF SP 2CH [address] [facility] Work Phone: EF SP 4CH 58 [facility] Work Phone: FS 28 % 28 - 44 % [facility] Work Phone: IVC ostium 2.30 cm [facility] Work Phone: IVS 1.11 cm [facility] Work Phone: LA AREA 2CH 24.36 cm2 [facility] Work Phone: [phone] LA area 4CH 20.36 cm2 [facility] Work Phone: [phone] LA ESV BP (MOD) 64 mL [facility] Work Phone: LA ESV BP (MOD) index 31 mL/m2 [facility] Work Phone: LA ESV SP 2CH (MOD) 76 mL [facility] Work Phone: LA ESV SP 4CH (MOD) 53 mL [facility] Work Phone: LV EDV BP [address] [facility] Work Phone: [phone] LV EDV SP 2CH [address] [facility] Work Phone: LV EDV SP 4CH 166 mL [facility] Work Phone: LV ESV BP 69 mL [facility] Work Phone: LV ESV SP 2CH 65 mL [facility] Work Phone: LV ESV SP 4CH [address] [facility] Work Phone: LV mass 254.[address] [facility] Work Phone: LV Mass Index 122.5 g/m2 [facility] Work Phone: LV RWT 0.[address] [facility] Work Phone: LV stroke volume BP (ml) [address] [facility] Work Phone: LV stroke volume index BP 53.37 mL/m2 [facility] Work Phone: LVIDD 5.[address] [facility] Work Phone: LVIDS 3.[address] [facility] Work Phone: LVOT area 4.15 cm2 [facility] Work Phone: LVOT diameter 2.30 cm [facility] Work Phone: LVOT peak meliton 1.06 m/s [facility] Work Phone: LVOT peak VTI 26.61 cm [facility] Work Phone: LVOT stroke volume 111 cm3 [facility] Work Phone: LVOT stroke volume index 53.13 ml/m2 [facility] Work Phone: Mr max meliton 4.21 m/s [facility] Work Phone: MR VTI 134.50 cm [facility] Work Phone: MV mean gradient 3 mmHg [facility] Work Phone: MV peak gradient 11 mmHg [facility] Work Phone: MV pk A meliton 0.52 m/s [facility] Work Phone: MV pk E meliton 1.39 m/s [facility] Work Phone: MV stenosis pressure 1/2 time 58.56 ms [facility] Work Phone: MV valve area by continuity eq 2.[address] [facility] Work Phone: MV valve area p 1/2 method 3.76 cm2 [facility] Work Phone: MV VTI 37.[address] [facility] Work Phone: MVA (continuity VTI) 2.[address] [facility] Work Phone: OSU AV VTI RATIO PRE STRESS 0.74 [facility] Work Phone: OSU ECHO LV BIPLANE SYSTOLIC VOLUME INDEX 33.17 mL/m2 [facility] Work Phone: OSU ECHO LV BP DIASTOLIC VOLUME INDEX 86.54 mL/m2 [facility] Work Phone: OSU ECHO MR PEAK GRADIENT 70.94 mmHg [facility] Work Phone: PW 1.16 cm [facility] Work Phone: RA area 4CH (MOD) 14.50 cm2 [facility] Work Phone: RA vol index 4CH (MOD) 18.27 mL/m2 [facility] Work Phone: Right atrium volume 4 chamber method of disks 38 mL [facility] Work Phone: RV Area diastolic 33.20 cm2 [facility] Work Phone: RV Area systolic 21.30 cm2 [facility] Work Phone: RV basal diam 4.[address] [facility] Work Phone: RV Fractional area change 35.8 % [facility] Work Phone: RV long diam 8.[address] [facility] Work Phone: RV mid diam 3.70 cm [facility] Work Phone: RV S' 22.01 cm/s [facility] Work Phone: RVOT peak gradient 4 mmHg [facility] Work Phone: RVOT peak meliton 0.96 m/s [facility] Work Phone: RVOT peak VTI 20.[address] [facility] Work Phone: Sinus 3.[address] [facility] Work Phone: STJ 2.61 cm [facility] Work Phone: Stroke Volume 111 cm/mL [facility] Work Phone: Stroke volume index [facility] Work [facility]: TAPSE 2.19 cm [facility] Work Phone: [facility] Work Phone: Cardiac echo study Procedure [...] Indications Indications for study: shortness of breath. [facility] Radiology Study observation (narrative) [facility] HEPATIC FUNCTION PANELon Albumin [Mass/Vol] 3.5 g/dL Normal 3.5-5.0 [facility] Comment on above: Performed By: #### C HM7, HFP, MGO, TSHQR ####[facility] (DEFAULT)[address] [facility] [place] [address] ALP [Catalytic activity/Vol] 70 U/L Normal 32-126 [facility] Comment on above: Performed By: #### Chinedu HM7, HFP, MGO, TSHQR ####[facility] (DEFAULT)[address] [place] [address], [place] [address] ALT [Catalytic activity/Vol] 8 U/L Low 10-52 [facility] Comment on above: Performed By: #### C HM7, HFP, MGO, TSHQR ####[facility] (DEFAULT)[address] [place] [address] AST [Catalytic activity/Vol] 20 U/L Normal 10-39 [facility] Comment on above: Performed By: #### C HM7, HFP, MGO, TSHQR ####[facility] (DEFAULT)[address] [place] [address] Bilirubin [Mass/Vol] 1.7 mg/dL High <1.5 [facility] Comment on above: Performed By: #### C HM7, HFP, MGO, TSHQR ####[facility] (DEFAULT)[address] [place] [address] Bilirubin.indirect [Mass/Vol] 0.4 mg/dL High <0.3 [facility] Comment on above: Performed By: #### C HM7, HFP, MGO, TSHQR ####[facility] (DEFAULT)[address] [facility] [place] [place] [address] Protein [Mass/Vol] 6.0 g/dL Low 6.4-8.3 [facility] Comment on above: Performed By: #### C HM7, HFP, MGO, TSHQR ####[facility] (DEFAULT)[address] [place] [address] Albumin [Mass/Vol] 3.5 g/dL 3.5 - 5.0 g/dL [facility] ALP [Catalytic activity/Vol] 70 U/L 32 - 126 U/L [facility] ALT [Catalytic activity/Vol] 8 U/L Low 10 - 52 U/L [facility] AST [Catalytic activity/Vol] 20 U/L 10 - 39 U/L [facility] Bilirubin [Mass/Vol] 1.7 mg/dL High NINF - 1.5 mg/dL [facility] Bilirubin.direct [Mass/Vol] 0.4 mg/dL High NINF - 0.3 mg/dL [facility] Protein [Mass/Vol] 6.0 g/dL Low 6.4 - 8.3 g/dL [facility] MAGNESIUMon 01-18-2024 Magnesium [Mass/Vol] 1.5 mg/dL Low 1.6-2.6 [facility] Comment on above: Performed By: #### C HM7, HFP, MGO, TSHQR ####[facility] (DEFAULT)[address] [facility] [place] [place] [address] Magnesium [Mass/Vol] 1.5 mg/dL Low 1.6 - 2 .6 mg/dL [facility] No Panel Informationon 01-18 Interpretation and review of laboratory results Abnormal [facility] PT,INR,PTTon 01-18-2024 aPTT Coag (Bld) [Time] 30.0 s Normal 24.0-34.3 [facility] Comment on above: Performed By: #### P TPTT ####[facility] (DEFAULT)[address] [place] [address] INR Coag (PPP) [Relative time] 1.1 {INR} Normal 0.9-1.1 [facility] Comment on above: Performed By: #### P TPTT ####[facility] (DEFAULT)[address] [place] [address] PT Coag (PPP) [Time] 14.5 s High 11.9-14.2 [facility] Comment on above: Performed By: #### P TPTT ####[facility] (DEFAULT)[address] [place] [address], [place] [address] aPTT Coag (PPP) [Time] 30.0 s [facility] INR Coag (Bld) [Relative time] 1.1 {INR} 0.9 - 1.1 [facility] Interpretation and review of laboratory results Abnormal [facility] PT Coag (PPP) [Time] 14.5 s High [facility] TSH W/FT4 REFLEXon 4 Interpretation and review of laboratory results Normal [facility] TSH Qn 2.660 m[IU]/L [facility] TSH 2.660 uIU/mL Normal 0.550-4.780 [facility] Comment on above: Performed By: #### C HM7, HFP, MGO, TSHQR ####[facility] (DEFAULT)[address] [place] [address] AFP TUMOR MARKERon 4 AFP Tumor Marker <2.2 Normal <8.1 [facility] Comment on above: Result Comment: This test was performed on the Synack IM Immunoassay platform by [employer] which is a two-site sandwich chemiluminescent immunoassay. It is important to note that assays using different manufacturers and/or methods may not be comparable. Performed By: #### [facility] ####[facility] (DEFAULT)[address] [place] [address] DARYL AURIS SCREEN BY PCRO rdered By: Mynor Alejandro on 01-17-2024 Daryl auris Screen by PCR Not detected Not Detected [facility] Interpretation and review of laboratory results Normal [facility] This test was perfor med using a real-time PCR assay. This test was developed, and its performance characteristics determined by [facility]. It has not been cleared or approved by the FDA. The laboratory is regulated under CLIA as qualified to perform high-complexity testing. This test is used for clinical purposes. It should not be regarded as investigational or for research. [facility] CBC,PLATELETSon 01-17-2024 Hematocrit (Bld) [Volume fraction] 37.2 % Low 39.6-48.8 [facility] Comment on above: Performed By: #### [facility] ####[facility] (DEFAULT)[address] [place] [address] Hemoglobin (Bld) [Mass/Vol] 12.0 g/dL Low 13.4-16.8 [facility] Comment on above: Performed By: #### H [facility] [place] ####[facility] (DEFAULT)[address] [place] [address] MCV (RBC) [Entitic vol] 86.5 fL Normal 79.0-94.5 [facility] Comment on above: Performed By: #### H [facility] [place] ####[facility] (DEFAULT)[address] [place] [address] Mean Cell Hgb 27.9 pg Normal 26.1-33.3 [facility] Comment on above: Performed By: #### H [facility] ####[facility] (DEFAULT)[address] [place] [address] Mean Cell Hgb Conc 32.3 g/dL Normal 31.9-36.5 [facility] Comment on above: Performed By: #### H EMOGC ####[facility] (DEFAULT)[address] [place] [address] Platelet mean volume (Bld) [Entitic vol] 10.5 fL Normal 8.7-12.3 [facility] Comment on above: Performed By: #### H EMOGC ####[facility] (DEFAULT)[address] [place] [address] Platelets (Bld) [#/Vol] 159 10*3/uL Normal 146-337 [facility] Comment on above: Performed By: #### H EMOGC ####[facility] (DEFAULT)[address] [place] [address] RBC (Bld) [#/Vol] 4.30 10*6/uL Low 4.38-5.83 [facility] Comment on above: Performed By: #### H EMOGC ####[facility] (DEFAULT)[address] [place] [address] RBC Distribution 14.0 % Normal 10.9-14.3 [facility] Comment on above: Performed By: #### H EMOGC ####[facility] (DEFAULT)[address] [facility] [place] [place] [address] WBC (Bld) [#/Vol] 3.69 10*3/uL Low 3.73-10.10 [facility] Comment on above: Performed By: #### H EMOGC ####[facility] (DEFAULT)[address] [facility] [place] [place] [address] Erythrocyte distribution width (RBC) [Ratio] 14.0 % 10.9 - 14.3 % [facility] Hematocrit (Bld) [Volume fraction] 37.2 % Low 39.6 - 48.8 % [facility] Hemoglobin (Bld) [Mass/Vol] 12.0 g/dL Low 13.4 - 16.8 g/dL [facility] Interpretation and review of laboratory results Abnormal [facility] MCH (RBC) [Entitic mass] 27.9 pg 26.1 - 33.3 pg [facility] MCHC (RBC) [Mass/Vol] 32.3 g/dL 31.9 - 36.5 g/dL [facility] MCV (RBC) [Entitic vol] 86.5 fL 79.0 - 94.5 fL [facility] Platelet mean volume (Bld) [Entitic vol] 10.5 fL 8.7 - 12.3 fL [facility] Platelets (Bld) [#/Vol] 159 10*3/uL 146 - 337 K/uL [facility] RBC (Bld) [#/Vol] 4.30 10*6/uL Low [facility] WBC (Bld) [#/Vol] 3.69 10*3/uL Low 3.73 - 10. 10 K/uL [facility] CHEM 7 (LYTES,BUN,CREA,GLUC) on 01-17-2024 Anion gap [Moles/Vol] 13 mmol/L Normal 7-17 [facility] Comment on above: Performed By: #### C HM7, HFP, MGO ####[facility] (DEFAULT)[address] [place] [address] Chloride [Moles/Vol] 109 mmol/L High 98-108 [facility] Comment on above: Performed By: #### C HM7, HFP, MGO ####[facility] (DEFAULT)[address] [place] [address] CO2 [Moles/Vol] 21 mmol/L Normal 21-31 [facility] Comment on above: Performed By: #### C HM7, HFP, MGO ####[facility] (DEFAULT)[address] [place] [address] Creatinine [Mass/Vol] 1.04 mg/dL Normal 0.70-1.30 [facility] Comment on above: Performed By: #### C HMJessica, HFP, MGO ####[facility] (DEFAULT)[address] [place] [address] GFR/1.73 sq M.predicted among non-blacks MDRD (S/P/Bld) [Vol rate/Area] 86 mL/min/{1.73_m2} Normal >=60 [facility] Comment on above: Result Comment: Repo rted eGFR is based on the CKD-EPI 2020 equation using creatinine, age, and sex. Performed By: #### C HM7, HFP, MGO ####[facility] (DEFAULT)[address] [place] [address] Glucose [Mass/Vol] 82 mg/dL Normal 70-99 [facility] Comment on above: Performed By: #### C HMJessica, HFP, MGO ####[facility] (DEFAULT)[address] [facility] [place] [place] [address] Osmolality [Osmolality] 292 mosm/kg Normal 278-305 [facility] Comment on above: Performed By: #### C HM7, HFP, MGO ####[facility] (DEFAULT)[address] [place] [address] Potassium [Moles/Vol] 4.4 mmol/L Normal 3.5-5.0 [facility] Comment on above: Performed By: #### C HM7, HFP, MGO ####[facility] (DEFAULT)[address] [place] [address] Sodium [Moles/Vol] 139 mmol/L Normal 135-145 [facility] Comment on above: Performed By: #### C HM7, HFP, MGO ####[facility] (DEFAULT)[address] [place] [address] Urea nitrogen [Mass/Vol] 17 mg/dL Normal 7-25 [facility] Comment on above: Performed By: #### C HM7, HFP, MGO ####[facility] (DEFAULT)[address] [place] [address] Urea nitrogen/Creatinine [Mass ratio] 16 mg/mg Normal [facility] Comment on above: Performed By: #### C HM7, HFP, MGO ####[facility] (DEFAULT)[address] [place] [address] Anion gap [Moles/Vol] 13 mmol/L 7 - 17 mmol/L [facility] Chloride [Moles/Vol] 109 mmol/L High 98 - 10 8 mmol/L [facility] CO2 [Moles/Vol] 21 mmol/L 21 - 31 mmol/L [facility] Creatinine [Mass/Vol] 1.04 mg/dL 0.70 - 1.30 mg/dL [facility] eGFR, CKD-EPI, Male 86 - PINF [facility] Comment on above: Reported eGFR is bas ed on the CKD-EPI 2020 equation using creatinine, age, and sex. Glucose [Mass/Vol] 82 mg/dL 70 - 99 mg/dL [facility] Osmolality Calc [Osmolality] 292 [facility] Potassium [Moles/Vol] 4.4 mmol/L 3.5 - 5.0 mmol/L [facility] Sodium [Moles/Vol] 139 mmol/L 135 - 145 mmol/L [facility] Urea nitrogen [Mass/Vol] 17 mg/dL 7 - 25 mg/[facility] Urea nitrogen/Creatinine [Mass ratio] 16 mg/mg [facility] CT ABDOMEN/PELVIS WITHOUT CO NTRASTon 01-17-2024 CT ABDOMEN/PELVIS WITHOUT CONTRAST Normal [facility] CT Abdomen and Pelvis WO con [...] unremarkable. 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 Right lower quadrant [...] unremarkable. 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 Right lower quadrant [...] the middle lobe. Trace left pleural effusion. [facility] Radiology Study observation (narrative) [facility] HEPATIC FUNCTION PANELon Albumin [Mass/Vol] 3.5 g/dL Normal 3.5-5.0 [facility] Comment on above: Performed By: #### C HM7, HFP, MGO ####[facility] (DEFAULT)[address] [place] [address] ALP [Catalytic activity/Vol] 73 U/L Normal 32-126 [facility] Comment on above: Performed By: #### C HM7, HFP, MGO ####[facility] (DEFAULT)[address] [facility] [place] [address] ALT [Catalytic activity/Vol] 7 U/L Low 10-52 [facility] Comment on above: Performed By: #### C HM7, HFP, MGO ####[facility] (DEFAULT)[address] [place] [address] AST [Catalytic activity/Vol] 25 U/L Normal 10-39 [facility] Comment on above: Performed By: #### C HM7, HFP, MGO ####[facility] (DEFAULT)[address] [facility] [place] [place] [address] Bilirubin [Mass/Vol] 1.8 mg/dL High <1.5 [facility] Comment on above: Performed By: #### C HM7, HFP, MGO ####[facility] (DEFAULT)[address] [place] [address] Bilirubin.indirect [Mass/Vol] 0.3 mg/dL High <0.3 [facility] Comment on above: Performed By: #### C HM7, HFP, MGO ####[facility] (DEFAULT)[address] [place] [address] Protein [Mass/Vol] 6.0 g/dL Low 6.4-8.3 [facility] Comment on above: Performed By: #### C HM7, HFP, MGO ####[facility] (DEFAULT)[address] [facility] [place] [place] [address] Albumin [Mass/Vol] 3.5 g/dL 3.5 - 5.0 g/dL [facility] ALP [Catalytic activity/Vol] 73 U/L 32 - 126 U/L [facility] ALT [Catalytic activity/Vol] 7 U/L Low 10 - 52 U/L [facility] AST [Catalytic activity/Vol] 25 U/L 10 - 39 U/L [facility] Bilirubin [Mass/Vol] 1.8 mg/dL High NINF - 1.5 mg/dL [facility] Bilirubin.direct [Mass/Vol] 0.3 mg/dL High NINF - 0.3 mg/dL [facility] Protein [Mass/Vol] 6.0 g/dL Low 6.4 - 8.3 g/dL [facility] HISTOPLASMA AND BLASTOMYCES ANTIGEN, ENZYME IMMUNOASSAY, SERMon 01-17-2024 Histoplasma/Blastomy antonia Ag Result Not detected Normal Not Detected [facility] Comment on above: Result Comment: No a ntigen from Histoplasma or Blastomyces detected. Falsenegative results may occur depending on extent of disease,and/or site of infection. Repeat testing on a new specimenif clinically indicated. Performed By: #### H IBAG ####[facility] (DEFAULT)[address] [place] [address] Histoplasma/Blastomy antonia Ag Value Not detected Normal [facility] Comment on above: Result Comment: ---- ADDITIONAL INFORMATION This test was developed and its performance characteristicsdetermined by [facility] in a manner consistent with CLIArequirements. This test has not been cleared or approved bythe U.S. Food and Drug Administration.Test Performed by:[address] [id number] Director: Rosendo Bose M.D. Ph.D.; CLIA# [id number] Performed By: #### H IBAG ####[facility] (DEFAULT)[address] [place] [address] MAGNESIUMon 01-17-2024 Magnesium [Mass/Vol] 1.7 mg/dL Normal 1.6-2.6 [facility] Comment on above: Performed By: #### C HM7, HFP, MGO ####[facility] (DEFAULT)[address] [place] [address] Interpretation and review of laboratory results Normal [facility] Magnesium [Mass/Vol] 1.7 mg/dL 1.6 - 2 .6 mg/dL [facility] No Panel Informationon 01-17 Interpretation and review of laboratory results Abnormal [facility] PT,INR,PTTon 01-17-2024 aPTT Coag (PPP) [Time] 29.9 s [facility] INR Coag (Bld) [Relative time] 1.1 {INR} 0.9 - 1.1 [facility] Interpretation and review of laboratory results Abnormal [facility] PT Coag (PPP) [Time] 14.5 s High [facility] aPTT Coag (Bld) [Time] 29.9 s Normal 24.0-34.3 [facility] Comment on above: Performed By: #### P TPTT ####[facility] (DEFAULT)[address] [place] [address] INR Coag (PPP) [Relative time] 1.1 {INR} Normal 0.9-1.1 [facility] Comment on above: Performed By: #### P TPTT ####[facility] (DEFAULT)[address] [place] [address] PT Coag (PPP) [Time] 14.5 s High 11.9-14.2 [facility] Comment on above: Performed By: #### P TPTT ####[facility] (DEFAULT)[address] [place] [id number] B-TYPE NATRIURETIC PEPTIDE ( BRAIN)on 01-16-2024 Interpretation and review of laboratory results Abnormal [facility] Natriuretic peptide B (Bld) [Mass/Vol] 212 pg/mL High 0 - 100 pg/mL [facility] Natriuretic peptide B (Bld) [Mass/Vol] 212 pg/mL High 0-100 [facility] Comment on above: Performed By: #### B LEAD BUSINESS SYSTEMS ANALYST ####[facility] (DEFAULT)[address] [place] [address] CALCIUMon 01-16-2024 Calcium [Mass/Vol] 8.5 mg/dL Low 8.6-10.5 [facility] Comment on above: Performed By: #### C A, CHM7, IPB, MGO, HFP ####[facility] (DEFAULT)[address] [place] [address] Calcium [Mass/Vol] 8.5 mg/dL Low 8.6 - 10. 5 mg/dL [facility] DARYL AURIS SCREEN BY PCRo n 01-16-2024 Daryl auris Screen by PCR Not detected Normal Not Detected [facility] Comment on above: Order Comment: This test was performed using a real-time PCR assay. This test was developed, and its performance characteristics determined by [facility]. It has not been cleared or approved by the FDA. The laboratory is regulated under CLIA as qualified to perform high-complexity testing. This test is used for clinical purposes. It should not be regarded as investigational or for research. Performed By: #### C LEXX AURIS SCREEN BY PCR ####[facility] (DEFAULT)[address] [place] [address] CBC AND ELECTRONIC DIFFon Abs Baso Auto < Normal 0.00-0.09 [facility] Comment on above: Performed By: #### L AB980 ####[facility] (DEFAULT)[address] [facility] [place] [place] [address] Basophils/100 WBC (Bld) 0.6 % Normal [facility] Comment on above: Performed By: #### L AB980 ####[facility] (DEFAULT)[address] [place] [address] DIFF STATUS Electronic Differential Normal [facility] Comment on above: Performed By: #### L AB980 ####[facility] (DEFAULT)[address] [place] [address] Eosinophils (Bld) [#/Vol] 0.09 10*3/uL Normal 0.00-0.48 [facility] Comment on above: Performed By: #### L AB980 ####[facility] (DEFAULT)[address] [facility] [place] [address] Eosinophils/100 WBC (Bld) 2.5 % Normal [facility] Comment on above: Performed By: #### L AB980 ####[facility] (DEFAULT)[address] [place] [address] Hematocrit (Bld) [Volume fraction] 37.4 % Low 39.6-48.8 [facility] Comment on above: Performed By: #### L AB980 ####[facility] (DEFAULT)[address] [place] [address] Hemoglobin (Bld) [Mass/Vol] 12.1 g/dL Low 13.4-16.8 [facility] Comment on above: Performed By: #### L AB980 ####[facility] (DEFAULT)[address] [place] [address] Immature Grans % 0.3 % Normal [facility] Comment on above: Performed By: #### L AB980 ####[facility] (DEFAULT)[address] [facility] [place] [address] Immature Grans Absolute < Normal <=0.07 [facility] Comment on above: Performed By: #### L AB980 ####[facility] (DEFAULT)[address] [facility] [place] [address] Lymphocytes (Bld) [#/Vol] 1.16 10*3/uL Normal 0.83-3.57 [facility] Comment on above: Performed By: #### L AB980 ####[facility] (DEFAULT)[address] [place] [address] Lymphocytes/100 WBC (Bld) 32.0 % Normal [facility] Comment on above: Performed By: #### L AB980 ####[facility] (DEFAULT)[address] [facility] [place] [address] MCV (RBC) [Entitic vol] 87.8 fL Normal 79.0-94.5 [facility] Comment on above: Performed By: #### L AB980 ####[facility] (DEFAULT)[address] [facility] [place] [address] Mean Cell Hgb 28.4 pg Normal 26.1-33.3 [facility] Comment on above: Performed By: #### L AB980 ####[facility] (DEFAULT)[address] [facility] [place] [address] Mean Cell Hgb Conc 32.4 g/dL Normal 31.9-36.5 [facility] Comment on above: Performed By: #### L AB980 ####[facility] (DEFAULT)[address] [place] [address] Monocytes (Bld) [#/Vol] 0.43 10*3/uL Normal 0.24-0.93 [facility] Comment on above: Performed By: #### L AB980 ####[facility] (DEFAULT)[address] [place] [address] Monocytes/100 WBC (Bld) 11.9 % Normal [facility] Comment on above: Performed By: #### L AB980 ####[facility] (DEFAULT)[address] [place] [address] Nucleated RBC 0.0 /100 WBC Normal <=0.2 [facility] Comment on above: Performed By: #### L AB980 ####[facility] (DEFAULT)[address] [facility] [place] [place] [address] Platelet mean volume (Bld) [Entitic vol] 10.1 fL Normal 8.7-12.3 [facility] Comment on above: Performed By: #### L AB980 ####[facility] (DEFAULT)[address] [place] [address] Platelets (Bld) [#/Vol] 155 10*3/uL Normal 146-337 [facility] Comment on above: Performed By: #### L AB980 ####[facility] (DEFAULT)[address] [place] [address] RBC (Bld) [#/Vol] 4.26 10*6/uL Low 4.38-5.83 [facility] Comment on above: Performed By: #### L AB980 ####[facility] (DEFAULT)[address] [place] [address] RBC Distribution 14.0 % Normal 10.9-14.3 [facility] Comment on above: Performed By: #### L AB980 ####[facility] (DEFAULT)[address] [place] [address] Segs + Bands Auto 52.7 % Normal [facility] Comment on above: Performed By: #### L AB980 ####[facility] (DEFAULT)[address] [place] [address] Segs + Bands,Absolute Auto 1.91 K/uL Normal 1.57-6.19 [facility] Comment on above: Performed By: #### L AB980 ####[facility] (DEFAULT)[address] [place] [address] WBC (Bld) [#/Vol] 3.62 10*3/uL Low 3.73-10.10 [facility] Comment on above: Performed By: #### L AB980 ####[facility] (DEFAULT)[address] [place] [address] Basophils (Bld) [#/Vol] K/uL 0.00 - 0.09 K/uL [facility] Basophils/100 WBC (Bld) 0.6 % [facility] Differential cell count method Nom (Bld) Electronic Differential [facility] Eosinophils (Bld) [#/Vol] 0.09 10*3/uL 0.00 - 0.48 K/uL [facility] Eosinophils/100 WBC (Bld) 2.5 % [facility] Erythrocyte distribution width (RBC) [Ratio] 14.0 % 10.9 - 14.3 % [facility] Hematocrit (Bld) [Volume fraction] 37.4 % Low 39.6 - 48.8 % [facility] Hemoglobin (Bld) [Mass/Vol] 12.1 g/dL Low 13.4 - 16.8 g/dL [facility] Immature granulocytes (Bld) [#/Vol] K/uL NINF - 0.07 K/uL [facility] Immature granulocytes/100 WBC (Bld) 0.3 % [facility] Interpretation and review of laboratory results Abnormal [facility] Lymphocytes (Bld) [#/Vol] 1.16 10*3/uL 0.83 - 3.57 K/uL [facility] Lymphocytes/100 WBC (Bld) 32.0 % [facility] MCH (RBC) [Entitic mass] 28.4 pg 26.1 - 33.3 pg [facility] MCHC (RBC) [Mass/Vol] 32.4 g/dL 31.9 - 36.5 g/dL [facility] MCV (RBC) [Entitic vol] 87.8 fL 79.0 - 94.5 fL [facility] Monocytes (Bld) [#/Vol] 0.43 10*3/uL 0.24 - 0.93 K/uL [facility] Monocytes/100 WBC (Bld) 11.9 % [facility] Neutrophils (Bld) [#/Vol] 1.91 10*3/uL 1.57 - 6.19 K/uL [facility] Nucleated RBC/100 WBC (Bld) [Ratio] 0.0 % [facility] Platelet mean volume (Bld) [Entitic vol] 10.1 fL 8.7 - 12.3 fL [facility] Platelets (Bld) [#/Vol] 155 10*3/uL 146 - 337 K/uL [facility] RBC (Bld) [#/Vol] 4.26 10*6/uL Low [facility] Segmented neutrophils/100 WBC (Bld) 52.7 % [facility] WBC (Bld) [#/Vol] 3.62 10*3/uL Low 3.73 - 10. 10 K/uL [facility] CHEM 7 (LYTES,BUN,CREA,GLUC) on 01-16-2024 Anion gap [Moles/Vol] 11 mmol/L Normal 06-15 [facility] Comment on above: Performed By: #### C A, CHM7, IPB, MGO, HFP ####[facility] (DEFAULT)[address] [place] [address] Chloride [Moles/Vol] 108 mmol/L Normal 98-108 [facility] Comment on above: Performed By: #### C Tray, CHM7, IPB, MGO, HFP ####[facility] (DEFAULT)[address] [place] [address] CO2 [Moles/Vol] 24 mmol/L Normal 21-31 [facility] Comment on above: Performed By: #### C Tray, CHM7, IPB, MGO, HFP ####[facility] (DEFAULT)[address] [facility] [place] [place] [address] Creatinine [Mass/Vol] 1.04 mg/dL Normal 0.70-1.30 [facility] Comment on above: Performed By: #### C Tray, CHM7, IPB, MGO, HFP ####[facility] (DEFAULT)[address] [place] [address] GFR/1.73 sq M.predicted among non-blacks MDRD (S/P/Bld) [Vol rate/Area] 86 mL/min/{1.73_m2} Normal >=60 [facility] Comment on above: Result Comment: Repo rted eGFR is based on the CKD-EPI 2020 equation using creatinine, age, and sex. Performed By: #### C Tray, CHM7, IPB, MGO, HFP ####[facility] (DEFAULT)[address] [facility] [place] [place] [address] Glucose [Mass/Vol] 95 mg/dL Normal 70-99 [facility] Comment on above: Performed By: #### C Tray, CHM7, IPB, MGO, HFP ####[facility] (DEFAULT)[address] [facility] [place] [place] [address] Osmolality [Osmolality] 293 mosm/kg Normal 278-305 [facility] Comment on above: Performed By: #### C A, CHM7, IPB, MGO, HFP ####[facility] (DEFAULT)[address] [place] [address] Potassium [Moles/Vol] 4.0 mmol/L Normal 3.5-5.0 [facility] Comment on above: Performed By: #### C Tray, CHM7, IPB, MGO, HFP ####[facility] (DEFAULT)[address] [place] [address] Sodium [Moles/Vol] 139 mmol/L Normal 135-145 [facility] Comment on above: Performed By: #### Chinedu Feliz, CHM7, IPB, MGO, HFP ####[facility] (DEFAULT)[address] [place] [address] Urea nitrogen [Mass/Vol] 19 mg/dL Normal 7-25 [facility] Comment on above: Performed By: #### C Tray, CHM7, IPB, MGO, HFP ####[facility] (DEFAULT)[address] [place] [address] Urea nitrogen/Creatinine [Mass ratio] 18 mg/mg Normal [facility] Comment on above: Performed By: #### C Tray, CHM7, IPB, MGO, HFP ####[facility] (DEFAULT)[address] [facility] [place] [place] [address] Anion gap [Moles/Vol] 11 mmol/L 7 - 17 mmol/L [facility] Chloride [Moles/Vol] 108 mmol/L 98 - 10 8 mmol/L [facility] CO2 [Moles/Vol] 24 mmol/L 21 - 31 mmol/L [facility] Creatinine [Mass/Vol] 1.04 mg/dL 0.70 - 1.30 mg/dL [facility] eGFR, CKD-EPI, Male 86 - PINF [facility] Comment on above: Reported eGFR is bas ed on the CKD-EPI 2020 equation using creatinine, age, and sex. Glucose [Mass/Vol] 95 mg/dL 70 - 99 mg/dL [facility] Osmolality Calc [Osmolality] 293 [facility] Potassium [Moles/Vol] 4.0 mmol/L 3.5 - 5.0 mmol/L [facility] Sodium [Moles/Vol] 139 mmol/L 135 - 145 mmol/L [facility] Urea nitrogen [Mass/Vol] 19 mg/dL 7 - 25 mg/dL [facility] Urea nitrogen/Creatinine [Mass ratio] 18 mg/mg [facility] D-DIMER,QUANTITATIVEon 01-16 D-Dimer, High Sensitivity 0.67 mcg/mL FEU High <0.50 [facility] Comment on above: Result Comment: The D-Dimer assay is intended for use in conjuction with a clinical pretest probability (PTP) assessment model to exclude pulmonary embolism (PE) and as an aid in the diagnosis of Deep Vein Thrombosis (DVT) in outpatients suspected of PE or DVT. For the assay in use at [facility] ([facility]), a cutoff of <0.50 mcg/mL has a Negative Predictive Value of 99.7% for exclusion of DVT in low and moderate PTP patients. Performed By: #### P TPTT, HSDDI ####[facility] (DEFAULT)[address] [place] [address] D-DIMER,QUANTITATIVEOrdered By: Shaji Kelly on 01-16-2024 Fibrin D-dimer FEU (PPP) [Mass/Vol] 0.67 High [facility] Comment on above: The D-Dimer assay is intended for use in conjuction with a clinical pretest probability (PTP) assessment model to exclude pulmonary embolism (PE) and as an aid in the diagnosis of Deep Vein Thrombosis (DVT) in outpatients suspected of PE or DVT. For the assay in use at [facility] ([facility]), a cutoff of <0.50 mcg/mL has a Negative Predictive Value of 99.7% for exclusion of DVT in low and moderate PTP patients. Interpretation and review of laboratory results Abnormal [facility] HEPATIC FUNCTION PANELon Albumin [Mass/Vol] 3.7 g/dL Normal 3.5-5.0 [facility] Comment on above: Performed By: #### C Tray, CHM7, IPB, MGO, HFP ####[facility] (DEFAULT)[address] [place] [address] ALP [Catalytic activity/Vol] 70 U/L Normal 32-126 [facility] Comment on above: Performed By: #### C Tray, CHM7, IPB, MGO, HFP ####[facility] (DEFAULT)[address] [place] [address] ALT [Catalytic activity/Vol] 8 U/L Low 10-52 [facility] Comment on above: Performed By: #### Chinedu Feliz, CHM7, IPB, MGO, HFP ####[facility] (DEFAULT)[address] [place] [address] AST [Catalytic activity/Vol] 21 U/L Normal 10-39 [facility] Comment on above: Performed By: #### C Tray, CHM7, IPB, MGO, HFP ####[facility] (DEFAULT)[address] [place] [address] Bilirubin [Mass/Vol] 1.9 mg/dL High <1.5 [facility] Comment on above: Performed By: #### C Tray, CHM7, IPB, MGO, HFP ####[facility] (DEFAULT)[address] [place] [address] Bilirubin.indirect [Mass/Vol] 0.4 mg/dL High <0.3 [facility] Comment on above: Performed By: #### C A, CHM7, IPB, MGO, HFP ####[facility] (DEFAULT)[address] [place] [address] Protein [Mass/Vol] 6.1 g/dL Low 6.4-8.3 [facility] Comment on above: Performed By: #### Chinedu Feliz, NATHANIEL, IPB, MGO, HFP ####[facility] (DEFAULT)[address] [place] [address] Albumin [Mass/Vol] 3.7 g/dL 3.5 - 5.0 g/dL [facility] ALP [Catalytic activity/Vol] 70 U/L 32 - 126 U/L [facility] ALT [Catalytic activity/Vol] 8 U/L Low 10 - 52 U/L [facility] AST [Catalytic activity/Vol] 21 U/L 10 - 39 U/L [facility] Bilirubin [Mass/Vol] 1.9 mg/dL High NINF - 1.5 mg/dL [facility] Bilirubin.direct [Mass/Vol] 0.4 mg/dL High NINF - 0.3 mg/dL [facility] Protein [Mass/Vol] 6.1 g/dL Low 6.4 - 8.3 g/dL [facility] MAGNESIUMon 01-16-2024 Magnesium [Mass/Vol] 1.7 mg/dL Normal 1.6-2.6 [facility] Comment on above: Performed By: #### NATHANIEL Willis, IPB, MGO, HFP ####[facility] (DEFAULT)[address] [place] [address] Magnesium [Mass/Vol] 1.7 mg/dL 1.6 - 2 .6 mg/dL [facility] No Panel Informationon 01-16 Interpretation and review of laboratory results Abnormal [facility] Interpretation and review of laboratory results Normal [facility] PHOSPHATE, INORGANICon 01-16 Phosphorous 4.1 mg/dL Normal 2.2-4.6 [facility] Comment on above: Performed By: #### Chinedu Feliz, CHM7, IPB, MGO, HFP ####[facility] (DEFAULT)[address] [place] [address] Phosphate [Mass/Vol] 4.1 mg/dL 2.2 - 4 .6 mg/dL [facility] PT,INR,PTTon 01-16-2024 aPTT Coag (Bld) [Time] 29.6 s Normal 24.0-34.3 [facility] Comment on above: Performed By: #### P TPTT, HSDDI ####[facility] (DEFAULT)[address] [place] [address] INR Coag (PPP) [Relative time] 1.2 {INR} High 0.9-1.1 [facility] Comment on above: Performed By: #### P TPTT, HSDDI ####[facility] (DEFAULT)[address] [place] [address] PT Coag (PPP) [Time] 14.9 s High 11.9-14.2 [facility] Comment on above: Performed By: #### P TPTT, HSDDI ####[facility] (DEFAULT)[address] [place] [address] aPTT Coag (PPP) [Time] 29.6 s [facility] INR Coag (Bld) [Relative time] 1.2 {INR} High 0.9 - 1.1 [facility] Interpretation and review of laboratory results Abnormal [facility] PT Coag (PPP) [Time] 14.9 s High [facility] TACROLIMUS LEVEL, TROUGH (IN E DRUG LEVEL)Ordered By: Jimy Castillo on 01-16-2024 Interpretation and review of laboratory results Normal [facility] Tacrolimus (Bld) [Mass/Vol] 5.7 ng/mL Bone Marrow Transplant: 4.0-12.0, Therapeutic: 5.0-15.0 [facility] Method performed is a chemiluminescent microparticle immunoasssay on the [employer] Information Delivery Analyst i2000. The range is based on experience at [facility] and users should be aware that target concentrations vary widely depending on concomitant therapy, time post-transplant, and desired degree of immunosuppression. [facility] TACROLIMUS LEVEL, TROUGH (IN E DRUG LEVEL)on 01-16-2024 Tacrolimus, Trough 5.7 ng/mL Normal Bone Susana ow Transplant: 4.0-12.0, Therapeutic: 5.0-15.0 [facility] Comment on above: Order Comment: Pleas e draw at specified interval PRIOR to dose. Do not hold dose to wait for level. Specimens batched twice per day, (M-F) and once per day weekendsMethod performed is a chemiluminescent microparticle immunoasssay on the [employer] Information Delivery Analyst i2000.The range is based on experience at [facility] and users should be aware that target concentrations vary widely depending on concomitant therapy, time post-transplant, and desired degree of immunosuppression. Performed By: #### T ACRO ####[facility] (DEFAULT)[address] [place] [address] US ABDOMEN LIVER DOPPLERon 0 01-16-2024 US ABDOMEN LIVER DOPPLER Normal [facility] US.doppler Abdominal vessels on 01-16-2024 IMPRESSION: [...] pleural effusion. Trace right upper quadrant ascites. [facility] Radiology Study observation (narrative) [facility] US.doppler Abdominal vessels Ordered By: Iona Duran on 01-16-2024 [facility] Work Phone: XR CHEST PA AND LATERAL 2 EWSon 01-16-2024 XR CHEST PA AND LATERAL 2 VIEWS Normal [facility] XR Chest PA and Lateralon IMPRESSION: [...] Normal IMPRESSION IMPRESSION: Moderate right pleural effusion. [facility] Radiology Study observation (narrative) [facility] XR Chest PA and LateralOrder ed By: Daisha Patterson on 01-16-2024 [facility] Work Phone: ALL CBC WITH AUTO DIFFon BASOPHILS ABSOLUTE AUTO 0.0 [facility] Basophils/100 WBC (Bld) 0.5 % 0.2 - 2.0 % [facility] Eosinophils/100 WBC (Bld) 2.8 % 0.9 - 7.0 % [facility] Erythrocyte distribution width (RBC) [Ratio] 13.8 % 11.0 - 15.0 % [facility] Hematocrit (Bld) [Volume fraction] 43.7 % 42.0 - 54.0 % [facility] Hemoglobin (Bld) [Mass/Vol] 14.0 g/dL 14.0 - 18.0 g/dL [facility] IMMATURE GRANULOCYTES ABS AUTO 0.01 [facility] Immature granulocytes/100 WBC (Bld) 0.3 % 0.0 - 0.5 % [facility] LYMPHOCYTES ABSOLUTE AUTO 1.5 [facility] Lymphocytes/100 WBC (Bld) 37.5 % 20.5 - 60.0 % [facility] MCH (RBC) [Entitic mass] 28.4 pg 25.9 - 34.0 pg [facility] MCHC (RBC) [Mass/Vol] 32.0 g/dL 29.9 - 35.2 g/dL [facility] MCV (RBC) [Entitic vol] 88.6 fL 80.0 - 94.0 fL [facility] MONOCYTES ABSOLUTE AUTO 0.5 [facility] Monocytes/100 WBC (Bld) 11.9 % 1.7 - 12.0 % [facility] NEUTROPHILS ABSOLUTE AUTO 1.9 [facility] Neutrophils/100 WBC (Bld) 47.0 % 43.0 - 75.0 % [facility] Platelet mean volume (Bld) [Entitic vol] 10.3 fL 9.5 - 13.5 fL [facility]1 [facility] PLT 180 [facility] RBC 4.93 [facility] WBC 4.0 [facility] ALL CBC WITH AUTO DIFFon BASOPHILS ABSOLUTE AUTO 0.0 [facility] Basophils/100 WBC (Bld) 0.5 % 0.2 - 2.0 % [facility] Eosinophils/100 WBC (Bld) 2.6 % 0.9 - 7.0 % [facility] Erythrocyte distribution width (RBC) [Ratio] 13.5 % 11.0 - 15.0 % [facility] Hematocrit (Bld) [Volume fraction] 43.8 % 42.0 - 54.0 % [facility] Hemoglobin (Bld) [Mass/Vol] 14.0 g/dL 14.0 - 18.0 g/dL [facility] IMMATURE GRANULOCYTES ABS AUTO 0.00 [facility] Immature granulocytes/100 WBC (Bld) 0.0 % 0.0 - 0.5 % [facility] Interpretation and review of laboratory results Abnormal [facility] LYMPHOCYTES ABSOLUTE AUTO 1.8 [facility] Lymphocytes/100 WBC (Bld) 45.2 % 20.5 - 60.0 % [facility] MCH (RBC) [Entitic mass] 27.9 pg 25.9 - 34.0 pg [facility] MCHC (RBC) [Mass/Vol] 32.0 g/dL 29.9 - 35.2 g/dL [facility] MCV (RBC) [Entitic vol] 87.4 fL 80.0 - 94.0 fL [facility] MONOCYTES ABSOLUTE AUTO 0.4 [facility] Monocytes/100 WBC (Bld) 9.6 % 1.7 - 12.0 % [facility] NEUTROPHILS ABSOLUTE AUTO 1.6 [facility] Neutrophils/100 WBC (Bld) 42.1 % Low 43.0 - 75.0 % [facility] Platelet mean volume (Bld) [Entitic vol] 9.8 fL 9.5 - 13.5 fL [facility] TBH EO # 0.1 [facility]H PLT 180 [facility] TB RBC 5.01 [facility] TB WBC 3.9 Low [facility] CHEM 7 (LYTES,BUN,CREA,GLUC) on 09-11-2023 Anion gap [Moles/Vol] 13 mmol/L Normal 7-17 [facility] Comment on above: Performed By: #### NATHANIEL RAMÍREZ ####[facility] (DEFAULT)[address] [place] [address] Chloride [Moles/Vol] 111 mmol/L High 98-108 [facility] Comment on above: Performed By: #### NATHANIEL RAMÍREZ ####[facility] (DEFAULT)[address] [place] [address] CO2 [Moles/Vol] 20 mmol/L Low 21-31 [facility] Comment on above: Performed By: #### NATHANIEL RAMÍREZ ####[facility] (DEFAULT)[address] [place] [address] Creatinine [Mass/Vol] 1.13 mg/dL Normal 0.70-1.30 [facility] Comment on above: Performed By: #### Rod BLOOM CHM7 ####[facility] (DEFAULT)[address] [place] [address] GFR/1.73 sq M.predicted among non-blacks MDRD (S/P/Bld) [Vol rate/Area] 78 mL/min/{1.73_m2} Normal >=60 [facility] Comment on above: Result Comment: Repo rted eGFR is based on the CKD-EPI 2020 equation using creatinine, age, and sex. Performed By: #### Rod BLOOM CHRod7 ####[facility] (DEFAULT)[address] [place] [address] Glucose [Mass/Vol] 109 mg/dL High 70-99 [facility] Comment on above: Performed By: #### Rod BLOOM CHM7 ####[facility] (DEFAULT)[address] [facility] [place] [place] [address] Osmolality [Osmolality] 295 mosm/kg Normal 278-305 [facility] Comment on above: Performed By: #### Rod BLOOM CHM7 ####[facility] (DEFAULT)[address] [place] [address] Potassium [Moles/Vol] 4.3 mmol/L Normal 3.5-5.0 [facility] Comment on above: Performed By: #### Rod BLOOM CHM7 ####[facility] (DEFAULT)[address] [place] [address] Sodium [Moles/Vol] 140 mmol/L Normal 135-145 [facility] Comment on above: Performed By: #### Rod BLOOM CHM7 ####[facility] (DEFAULT)[address] [place] [address] Urea nitrogen [Mass/Vol] 16 mg/dL Normal 7-25 [facility] Comment on above: Performed By: #### Rod BLOOM CHM7 ####[facility] (DEFAULT)[address] [place] [address] Urea nitrogen/Creatinine [Mass ratio] 14 mg/mg Normal [facility] Comment on above: Performed By: #### [facility] ####[facility] (DEFAULT)[address] [place] [address] Anion gap [Moles/Vol] 13 mmol/L 7 - 17 mmol/L [facility] Chloride [Moles/Vol] 111 mmol/L High 98 - 10 8 mmol/L [facility] CO2 [Moles/Vol] 20 mmol/L Low 21 - 31 mmol/L [facility] Creatinine [Mass/Vol] 1.13 mg/dL 0.70 - 1.30 mg/dL [facility] eGFR, CKD-EPI, Male 78 - PINF [facility] Glucose [Mass/Vol] 109 mg/dL High 70 - 99 mg/dL [facility] Interpretation and review of laboratory results Abnormal [facility] Osmolality Calc [Osmolality] 295 [facility] Potassium [Moles/Vol] 4.3 mmol/L 3.5 - 5.0 mmol/L [facility] Sodium [Moles/Vol] 140 mmol/L 135 - 145 mmol/L [facility] Urea nitrogen [Mass/Vol] 16 mg/dL 7 - 25 mg/dL [facility] Urea nitrogen/Creatinine [Mass ratio] 14 mg/mg [facility] GLUCOSE POCon 09-11-2023 Glucose [Mass/Vol] 108 mg/dL High 70 - 99 mg/dL [facility] Interpretation and review of laboratory results Abnormal [facility] POC Sample Type CAPBL [facility] Legionella sp identified Org specific cx Nom (Unsp spec)on 09-11-2023 Bacteria identified Cx Nom (Unsp spec) NO GROWTH DAY 7 OF 7 [facility] MAGNESIUMon 09-11-2023 Magnesium [Mass/Vol] 1.6 mg/dL Normal 1.6-2.6 [facility] Comment on above: Performed By: #### M MERLE CHM7 ####[facility] (DEFAULT)[address] [place] [address] Interpretation and review of laboratory results Normal [facility] Magnesium [Mass/Vol] 1.6 mg/dL 1.6 - 2 .6 mg/dL [facility] No Panel Informationon 09-11 [facility] TACROLIMUS LEVEL, TROUGH (IN E DRUG LEVEL)on 09-11-2023 Interpretation and review of laboratory results Normal [facility] Tacrolimus (Bld) [Mass/Vol] 11.5 ng/mL [facility] Tacrolimus, Trough 11.5 ng/mL Normal Bone Susana ow Transplant: 4.0-12.0, Therapeutic: 5.0-15.0 [facility] Comment on above: Order Comment: Pleas e draw at specified interval PRIOR to dose. Do not hold dose to wait for level. Specimens batched twice per day, (M-F) and once per day weekendsMethod performed is a chemiluminescent microparticle immunoasssay on the [employer] Delivery Analyst i2000.The range is based on experience at [facility] and users should be aware that target concentrations vary widely depending on concomitant therapy, time post-transplant, and desired degree of immunosuppression. Performed By: #### T ACRO ####[facility] (DEFAULT)[address] [place] [address] CBC,PLATELETSon 09-10-2023 Hematocrit (Bld) [Volume fraction] 40.0 % Normal 39.6-48.8 [facility] Comment on above: Performed By: #### [facility] ####[facility] (DEFAULT)[address] [place] [address] Hemoglobin (Bld) [Mass/Vol] 12.7 g/dL Low 13.4-16.8 [facility] Comment on above: Performed By: #### H EMO ####[facility] (DEFAULT)[address] [place] [address] MCV (RBC) [Entitic vol] 86.0 fL Normal 79.0-94.5 [facility] Comment on above: Performed By: #### H EMOGC ####[facility] (DEFAULT)[address] [facility] [place] [address] Mean Cell Hgb 27.3 pg Normal 26.1-33.3 [facility] Comment on above: Performed By: #### H EMOGC ####[facility] (DEFAULT)[address] [facility] [place] [place] [address] Mean Cell Hgb Conc 31.8 g/dL Low 31.9-36.5 [facility] Comment on above: Performed By: #### H EMOGC ####[facility] (DEFAULT)[address] [facility] [place] [address] Platelet mean volume (Bld) [Entitic vol] 9.5 fL Normal 8.7-12.3 [facility] Comment on above: Performed By: #### H EMOGC ####[facility] (DEFAULT)[address] [facility] [place] [place] [address] Platelets (Bld) [#/Vol] 225 10*3/uL Normal 146-337 [facility] Comment on above: Performed By: #### H EMOGC ####[facility] (DEFAULT)[address] [facility] [place] [address] RBC (Bld) [#/Vol] 4.65 10*6/uL Normal 4.38-5.83 [facility] Comment on above: Performed By: #### H EMOGC ####[facility] (DEFAULT)[address] [facility] [place] [place] [address] RBC Distribution 13.9 % Normal 10.9-14.3 [facility] Comment on above: Performed By: #### H EMOGC ####[facility] (DEFAULT)[address] [facility] [place] [address] WBC (Bld) [#/Vol] 6.52 10*3/uL Normal 3.73-10.10 [facility] Comment on above: Performed By: #### [facility] [place] ####[facility] (DEFAULT)[address] [place] [address] Erythrocyte distribution width (RBC) [Ratio] 13.9 % 10.9 - 14.3 % [facility] Hematocrit (Bld) [Volume fraction] 40.0 % 39.6 - 48.8 % [facility] Hemoglobin (Bld) [Mass/Vol] 12.7 g/dL Low 13.4 - 16.8 g/dL [facility] Interpretation and review of laboratory results Abnormal [facility] MCH (RBC) [Entitic mass] 27.3 pg 26.1 - 33.3 pg [facility] MCHC (RBC) [Mass/Vol] 31.8 g/dL Low 31.9 - 36.5 g/dL [facility] MCV (RBC) [Entitic vol] 86.0 fL 79.0 - 94.5 fL [facility] Platelet mean volume (Bld) [Entitic vol] 9.5 fL 8.7 - 12.3 fL [facility] Platelets (Bld) [#/Vol] 225 10*3/uL 146 - 337 K/uL [facility] RBC (Bld) [#/Vol] 4.65 10*6/uL [facility] WBC (Bld) [#/Vol] 6.52 10*3/uL 3.73 - 10. 10 K/uL [facility] CHEM 7 (LYTES,BUN,CREA,GLUC) on 09-10-2023 Anion gap [Moles/Vol] 13 mmol/L Normal 7-17 [facility] Comment on above: Performed By: #### M GO, CHM7, [facility] ####[facility] (DEFAULT)[address] [place] [address] Chloride [Moles/Vol] 111 mmol/L High 98-108 [facility] Comment on above: Performed By: #### NATHANIEL RAMÍREZ, HFP ####[facility] (DEFAULT)[address] [facility] [place] [address] CO2 [Moles/Vol] 20 mmol/L Low 21-31 [facility] Comment on above: Performed By: #### NATHANIEL RAMÍREZ, HFP ####[facility] (DEFAULT)[address] [place] [address] Creatinine [Mass/Vol] 1.27 mg/dL Normal 0.70-1.30 [facility] Comment on above: Performed By: #### NATHANIEL RAMÍREZ, HFP ####[facility] (DEFAULT)[address] [place] [address] GFR/1.73 sq M.predicted among non-blacks MDRD (S/P/Bld) [Vol rate/Area] 68 mL/min/{1.73_m2} Normal >=60 [facility] Comment on above: Result Comment: Repo rted eGFR is based on the CKD-EPI 2020 equation using creatinine, age, and sex. Performed By: #### NATHANIEL RAMÍREZ, HFP ####[facility] (DEFAULT)[address] [place] [address] Glucose [Mass/Vol] 100 mg/dL High 70-99 [facility] Comment on above: Performed By: #### NATHANIEL RAMÍREZ, HFP ####[facility] (DEFAULT)[address] [place] [address] [place] [address] Osmolality [Osmolality] 293 mosm/kg Normal 278-305 [facility] Comment on above: Performed By: #### NATHANIEL RAMÍREZ, HFP ####[facility] (DEFAULT)[address] [place] [address] Potassium [Moles/Vol] 4.4 mmol/L Normal 3.5-5.0 [facility] Comment on above: Performed By: #### NATHANIEL RAMÍREZ, HFP ####[facility] (DEFAULT)[address] [facility] [place] [address] Sodium [Moles/Vol] 140 mmol/L Normal 135-145 [facility] Comment on above: Performed By: #### M TJ BLOOM7, HFP ####[facility] (DEFAULT)[address] [place] [address] Urea nitrogen [Mass/Vol] 12 mg/dL Normal 7-25 [facility] Comment on above: Performed By: #### M TJ BLOOM7, HFP ####[facility] (DEFAULT)[address] [facility] [place] [address] Urea nitrogen/Creatinine [Mass ratio] 9 mg/mg Normal [facility] Comment on above: Performed By: #### TJ RAMÍREZ7, HFP ####[facility] (DEFAULT)[address] [place] [address] Anion gap [Moles/Vol] 13 mmol/L 7 - 17 mmol/L [facility] Chloride [Moles/Vol] 111 mmol/L High 98 - 10 8 mmol/L [facility] CO2 [Moles/Vol] 20 mmol/L Low 21 - 31 mmol/L [facility] Creatinine [Mass/Vol] 1.27 mg/dL 0.70 - 1.30 mg/dL [facility] eGFR, CKD-EPI, Male 69 - PINF [facility] Glucose [Mass/Vol] 100 mg/dL High 70 - 99 mg/dL [facility] Osmolality Calc [Osmolality] [address] [facility] Potassium [Moles/Vol] 4.4 mmol/L 3.5 - 5.0 mmol/L [facility] Sodium [Moles/Vol] 140 mmol/L 135 - 145 mmol/L [facility] Urea nitrogen [Mass/Vol] 12 mg/dL 7 - 25 mg/dL [facility] Urea nitrogen/Creatinine [Mass ratio] 9 mg/mg [facility] HEPATIC FUNCTION PANELon Albumin [Mass/Vol] 3.3 g/dL Low 3.5-5.0 [facility] Comment on above: Performed By: #### M MERLE CHM7, HFP ####[facility] (DEFAULT)[address] [place] [address] ALP [Catalytic activity/Vol] 143 U/L High 32-126 [facility] Comment on above: Performed By: #### M MERLE CHM7, HFP ####[facility] (DEFAULT)[address] [place] [address] ALT [Catalytic activity/Vol] 28 U/L Normal 10-52 [facility] Comment on above: Performed By: #### M GO CHM7, HFP ####[facility] (DEFAULT)[address] [place] [address] AST [Catalytic activity/Vol] 29 U/L Normal 10-39 [facility] Comment on above: Performed By: #### M GO CHM7, HFP ####[facility] (DEFAULT)[address] [place] [address] Bilirubin [Mass/Vol] 0.9 mg/dL Normal <1.5 [facility] Comment on above: Performed By: #### M GO CHM7, HFP ####[facility] (DEFAULT)[address] [place] [address] Bilirubin.indirect [Mass/Vol] 0.2 mg/dL Normal <0.3 [facility] Comment on above: Performed By: #### M GO CHM7, HFP ####[facility] (DEFAULT)[address] [place] [address] Protein [Mass/Vol] 6.8 g/dL Normal 6.4-8.3 [facility] Comment on above: Performed By: #### M GO, CHM7, HFP ####[facility] (DEFAULT)[address] [place] [address] Albumin [Mass/Vol] 3.3 g/dL Low 3.5 - 5.0 g/dL [facility] ALP [Catalytic activity/Vol] 143 U/L High 32 - 126 U/L [facility] ALT [Catalytic activity/Vol] 28 U/L 10 - 52 U/L [facility] AST [Catalytic activity/Vol] 29 U/L 10 - 39 U/L [facility] Bilirubin [Mass/Vol] 0.9 mg/dL NINF - 1.5 mg/dL [facility] Bilirubin.direct [Mass/Vol] 0.2 mg/dL NINF - 0.3 mg/dL [facility] Protein [Mass/Vol] 6.8 g/dL 6.4 - 8.3 g/dL [facility] MAGNESIUMon 09-10-2023 Magnesium [Mass/Vol] 1.9 mg/dL Normal 1.6-2.6 [facility] Comment on above: Performed By: #### M , M7, [facility] ####[facility] (DEFAULT)[address] [place] [address] Interpretation and review of laboratory results Normal [facility] Magnesium [Mass/Vol] 1.9 mg/dL 1.6 - 2 .6 mg/dL [facility] No Panel Informationon 09-10 Interpretation and review of laboratory results Abnormal [facility] TACROLIMUS LEVEL, TROUGH (IN E DRUG LEVEL)Ordered By: Jimy Castillo on 09-10-2023 Interpretation and review of laboratory results Normal [facility] Tacrolimus (Bld) [Mass/Vol] 11.8 ng/mL [facility] TACROLIMUS LEVEL, TROUGH (IN E DRUG LEVEL)on 09-10-2023 Tacrolimus, Trough 11.8 ng/mL Normal Bone Susana ow Transplant: 4.0-12.0, Therapeutic: 5.0-15.0 [facility] Comment on above: Order Comment: Pleas e draw at specified interval PRIOR to dose. Do not hold dose to wait for level. Specimens batched twice per day, (M-F) and once per day weekendsMethod performed is a chemiluminescent microparticle immunoasssay on the [employer] Delivery Analyst i2000.The range is based on experience at [facility] and users should be aware that target concentrations vary widely depending on concomitant therapy, time post-transplant, and desired degree of immunosuppression. Performed By: #### T ACRO ####[facility] (DEFAULT)[address] [facility] [place] [place] [address] CHEM 7 (LYTES,BUN,CREA,GLUC) on 09-09-2023 Anion gap [Moles/Vol] 14 mmol/L Normal 7-17 [facility] Comment on above: Performed By: #### JO ANN RAMÍREZ, CHM7 ####[facility] (DEFAULT)[address] [place] [address] Chloride [Moles/Vol] 113 mmol/L High 98-108 [facility] Comment on above: Performed By: #### JO ANN RAMÍREZ, CHM7 ####[facility] (DEFAULT)[address] [facility] [place] [place] [address] CO2 [Moles/Vol] 18 mmol/L Low 21-31 [facility] Comment on above: Performed By: #### JO ANN RAMÍREZ, CHM7 ####[facility] (DEFAULT)[address] [facility] [place] [address] Creatinine [Mass/Vol] 1.03 mg/dL Normal 0.70-1.30 [facility] Comment on above: Performed By: #### JO ANN RAMÍREZ, CHM7 ####[facility] (DEFAULT)[address] [facility] [place] [place] [address] GFR/1.73 sq M.predicted among non-blacks MDRD (S/P/Bld) [Vol rate/Area] 87 mL/min/{1.73_m2} Normal >=60 [facility] Comment on above: Result Comment: Repo rted eGFR is based on the CKD-EPI 2020 equation using creatinine, age, and sex. Performed By: #### JO ANN RAMÍREZ CHM7 ####[facility] (DEFAULT)[address] [place] [address] Glucose [Mass/Vol] 106 mg/dL High 70-99 [facility] Comment on above: Performed By: #### JO ANN RAMÍREZ CHM7 ####[facility] (DEFAULT)[address] [place] [address] Osmolality [Osmolality] 294 mosm/kg Normal 278-305 [facility] Comment on above: Performed By: #### JO ANN RAMÍREZ CHRod7 ####[facility] (DEFAULT)[address] [place] [address] Potassium [Moles/Vol] 4.0 mmol/L Normal 3.5-5.0 [facility] Comment on above: Performed By: #### JO ANN RAMÍREZ CHM7 ####[facility] (DEFAULT)[address] [place] [address] Sodium [Moles/Vol] 141 mmol/L Normal 135-145 [facility] Comment on above: Performed By: #### JO ANN RAMÍREZ, CHM7 ####[facility] (DEFAULT)[address] [place] [address] Urea nitrogen [Mass/Vol] 10 mg/dL Normal 7-25 [facility] Comment on above: Performed By: #### JO ANN RAMÍREZ, CHM7 ####[facility] (DEFAULT)[address] [place] [address] Urea nitrogen/Creatinine [Mass ratio] 10 mg/mg Normal [facility] Comment on above: Performed By: #### JO ANN RAMÍREZ, CHM7 ####[facility] (DEFAULT)[address] [place] [address] Anion gap [Moles/Vol] 14 mmol/L 7 - 17 mmol/L [facility] Chloride [Moles/Vol] 113 mmol/L High 98 - 10 8 mmol/L [facility] CO2 [Moles/Vol] 18 mmol/L Low 21 - 31 mmol/L [facility] Creatinine [Mass/Vol] 1.03 mg/dL 0.70 - 1.30 mg/dL [facility] eGFR, CKD-EPI, Male 87 - PINF [facility] Glucose [Mass/Vol] 106 mg/dL High 70 - 99 mg/dL [facility] Interpretation and review of laboratory results Abnormal [facility] Osmolality Calc [Osmolality] 294 [facility] Potassium [Moles/Vol] 4.0 mmol/L 3.5 - 5.0 mmol/L [facility] Sodium [Moles/Vol] 141 mmol/L 135 - 145 mmol/L [facility] Urea nitrogen [Mass/Vol] 10 mg/dL 7 - 25 mg/dL [facility] Urea nitrogen/Creatinine [Mass ratio] 10 mg/mg [facility] MAGNESIUMon 09-09-2023 Magnesium [Mass/Vol] 1.6 mg/dL Normal 1.6-2.6 [facility] Comment on above: Performed By: #### JO ANN RAMÍREZ CHM7 ####[facility] (DEFAULT)[address] [place] [address] Magnesium [Mass/Vol] 1.6 mg/dL 1.6 - 2 .6 mg/dL [facility] No Panel Informationon 09-09 Interpretation and review of laboratory results Normal [facility] PHOSPHATE, INORGANICon 09-09 Phosphorous 3.8 mg/dL Normal 2.2-4.6 [facility] Comment on above: Performed By: #### JO ANN RAMÍREZ CHM7 ####[facility] (DEFAULT)[address] [place] [address] Phosphate [Mass/Vol] 3.8 mg/dL 2.2 - 4 .6 mg/dL [facility] TACROLIMUS LEVEL, TROUGH (IN E DRUG LEVEL)on 09-09-2023 Interpretation and review of laboratory results Normal [facility] Tacrolimus (Bld) [Mass/Vol] 9.2 ng/mL [facility] Tacrolimus, Trough 9.2 ng/mL Normal Bone Susana ow Transplant: 4.0-12.0, Therapeutic: 5.0-15.0 [facility] Comment on above: Order Comment: Pleas e draw at specified interval PRIOR to dose. Do not hold dose to wait for level. Specimens batched twice per day, (M-F) and once per day weekendsMethod performed is a chemiluminescent microparticle immunoasssay on the [employer] Information Delivery Analyst i2000.The range is based on experience at [facility] and users should be aware that target concentrations vary widely depending on concomitant therapy, time post-transplant, and desired degree of immunosuppression. Performed By: #### T ACRO ####[facility] (DEFAULT)[address] [place] [address] CBC,PLATELETSon 09-08-2023 Hematocrit (Bld) [Volume fraction] 36.1 % Low 39.6-48.8 [facility] Comment on above: Performed By: #### [facility] ####[facility] (DEFAULT)[address] [place] [address] Hemoglobin (Bld) [Mass/Vol] 11.6 g/dL Low 13.4-16.8 [facility] Comment on above: Performed By: #### H [facility] ####[facility] (DEFAULT)[address] [place] [address] MCV (RBC) [Entitic vol] 85.1 fL Normal 79.0-94.5 [facility] Comment on above: Performed By: #### [facility] ####[facility] (DEFAULT)[address] [place] [address] Mean Cell Hgb 27.4 pg Normal 26.1-33.3 [facility] Comment on above: Performed By: #### H [facility] ####[facility] (DEFAULT)[address] [place] [address] Mean Cell Hgb Conc 32.1 g/dL Normal 31.9-36.5 [facility] Comment on above: Performed By: #### H EMOGC ####[facility] (DEFAULT)[address] [facility] [place] [address] Platelet mean volume (Bld) [Entitic vol] 9.5 fL Normal 8.7-12.3 [facility] Comment on above: Performed By: #### H EMOGC ####[facility] (DEFAULT)[address] [facility] [place] [address] Platelets (Bld) [#/Vol] 182 10*3/uL Normal 146-337 [facility] Comment on above: Performed By: #### H EMO ####[facility] (DEFAULT)[address] [place] [address] RBC (Bld) [#/Vol] 4.24 10*6/uL Low 4.38-5.83 [facility] Comment on above: Performed By: #### H EMO ####[facility] (DEFAULT)[address] [facility] [place] [address] RBC Distribution 13.6 % Normal 10.9-14.3 [facility] Comment on above: Performed By: #### H EMOGC ####[facility] (DEFAULT)[address] [place] [address] WBC (Bld) [#/Vol] 4.59 10*3/uL Normal 3.73-10.10 [facility] Comment on above: Performed By: #### H EMOGC ####[facility] (DEFAULT)[address] [facility] [place] [address] Erythrocyte distribution width (RBC) [Ratio] 13.6 % 10.9 - 14.3 % [facility] Hematocrit (Bld) [Volume fraction] 36.1 % Low 39.6 - 48.8 % [facility] Hemoglobin (Bld) [Mass/Vol] 11.6 g/dL Low 13.4 - 16.8 g/dL [facility] Interpretation and review of laboratory results Abnormal [facility] MCH (RBC) [Entitic mass] 27.4 pg 26.1 - 33.3 pg [facility] MCHC (RBC) [Mass/Vol] 32.1 g/dL 31.9 - 36.5 g/dL [facility] MCV (RBC) [Entitic vol] 85.1 fL 79.0 - 94.5 fL [facility] Platelet mean volume (Bld) [Entitic vol] 9.5 fL 8.7 - 12.3 fL [facility] Platelets (Bld) [#/Vol] 182 10*3/uL 146 - 337 K/uL [facility] RBC (Bld) [#/Vol] 4.24 10*6/uL Low [facility] WBC (Bld) [#/Vol] 4.59 10*3/uL 3.73 - 10. 10 K/uL [facility] CHEM 7 (LYTES,BUN,CREA,GLUC) on 09-08-2023 Anion gap [Moles/Vol] 12 mmol/L Normal 7-17 [facility] Comment on above: Performed By: #### M MERLE IPB, HFP, CHM7 ####[facility] (DEFAULT)[address] [place] [address] Chloride [Moles/Vol] 113 mmol/L High 98-108 [facility] Comment on above: Performed By: #### M MERLE IPB, HFP, CHM7 ####[facility] (DEFAULT)[address] [place] [address] CO2 [Moles/Vol] 21 mmol/L Normal 21-31 [facility] Comment on above: Performed By: #### M MERLE IPB, HFP, CHM7 ####[facility] (DEFAULT)[address] [place] [address] Creatinine [Mass/Vol] 1.14 mg/dL Normal 0.70-1.30 [facility] Comment on above: Performed By: #### CASTRO RAMÍREZB, HFP, CHM7 ####[facility] (DEFAULT)[address] [facility] [place] [place] [address] GFR/1.73 sq M.predicted among non-blacks MDRD (S/P/Bld) [Vol rate/Area] 77 mL/min/{1.73_m2} Normal >=60 [facility] Comment on above: Result Comment: Repo rted eGFR is based on the CKD-EPI 2020 equation using creatinine, age, and sex. Performed By: #### Rod BLOOM IPB, HFP, CHM7 ####[facility] (DEFAULT)[address] [place] [address], [place] [address] Glucose [Mass/Vol] 107 mg/dL High 70-99 [facility] Comment on above: Performed By: #### Rod BLOOM IPB, HFP, CHM7 ####[facility] (DEFAULT)[address] [place] [address], [place] [address] Osmolality [Osmolality] 296 mosm/kg Normal 278-305 [facility] Comment on above: Performed By: #### Rod BLOOM IPB, HFP, CHM7 ####[facility] (DEFAULT)[address] [place] [address], [place] [address] Potassium [Moles/Vol] 3.9 mmol/L Normal 3.5-5.0 [facility] Comment on above: Performed By: #### Rod BLOOM IPB, HFP, CHM7 ####[facility] (DEFAULT)[address] [place], [place] [address], [place] [address] Sodium [Moles/Vol] 142 mmol/L Normal 135-145 [facility] Comment on above: Performed By: #### Rod BLOOM IPB, HFP, CHM7 ####[facility] (DEFAULT)[address] [place] [address] Urea nitrogen [Mass/Vol] 11 mg/dL Normal 7-25 [facility] Comment on above: Performed By: #### M JO ANN BLOOM, HFP, CHM7 ####[facility] (DEFAULT)[address] [place] [address] Urea nitrogen/Creatinine [Mass ratio] 10 mg/mg Normal [facility] Comment on above: Performed By: #### M MERLE IPBerlin, HFP, CHM7 ####[facility] (DEFAULT)[address] [place] [address] Anion gap [Moles/Vol] 12 mmol/L 7 - 17 mmol/L [facility] Chloride [Moles/Vol] 113 mmol/L High 98 - 10 8 mmol/L [facility] CO2 [Moles/Vol] 21 mmol/L 21 - 31 mmol/L [facility] Creatinine [Mass/Vol] 1.14 mg/dL 0.70 - 1.30 mg/dL [facility] eGFR, CKD-EPI, Male 77 - [facility]F [facility] Glucose [Mass/Vol] 107 mg/dL High 70 - 99 mg/dL [facility] Osmolality Calc [Osmolality] [address] [facility] Potassium [Moles/Vol] 3.9 mmol/L 3.5 - 5.0 mmol/L [facility] Sodium [Moles/Vol] 142 mmol/L 135 - 145 mmol/L [facility] Urea nitrogen [Mass/Vol] 11 mg/dL 7 - 25 mg/[facility] Urea nitrogen/Creatinine [Mass ratio] 10 mg/mg [facility] HEPATIC FUNCTION PANELon Albumin [Mass/Vol] 2.9 g/dL Low 3.5-5.0 [facility] Comment on above: Performed By: #### M MERLE IPB, HFP, CHM7 ####[facility] (DEFAULT)[address] [place] [address] ALP [Catalytic activity/Vol] 133 U/L High 32-126 [facility] Comment on above: Performed By: #### M GO, IPB, HFP, CHM7 ####[facility] (DEFAULT)[address] [place] [address] ALT [Catalytic activity/Vol] 23 U/L Normal 10-52 [facility] Comment on above: Performed By: #### M GO, IPB, HFP, CHM7 ####[facility] (DEFAULT)[address] [place] [address] AST [Catalytic activity/Vol] 23 U/L Normal 10-39 [facility] Comment on above: Performed By: #### M GO, IPB, HFP, CHM7 ####[facility] (DEFAULT)[address] [place] [address] Bilirubin [Mass/Vol] 0.8 mg/dL Normal <1.5 [facility] Comment on above: Performed By: #### M GO, IPB, HFP, CHM7 ####[facility] (DEFAULT)[address] [place] [address] Bilirubin.indirect [Mass/Vol] 0.2 mg/dL Normal <0.3 [facility] Comment on above: Performed By: #### M GO, IPB, HFP, CHM7 ####[facility] (DEFAULT)[address] [place] [address] Protein [Mass/Vol] 5.9 g/dL Low 6.4-8.3 [facility] Comment on above: Performed By: #### M GO, IPB, HFP, CHM7 ####[facility] (DEFAULT)[address] [place] [address] Albumin [Mass/Vol] 2.9 g/dL Low 3.5 - 5.0 g/dL [facility] ALP [Catalytic activity/Vol] 133 U/L High 32 - 126 U/L [facility] ALT [Catalytic activity/Vol] 23 U/L 10 - 52 U/L [facility] AST [Catalytic activity/Vol] 23 U/L 10 - 39 U/L [facility] Bilirubin [Mass/Vol] 0.8 mg/dL NINF - 1.5 mg/dL [facility] Bilirubin.direct [Mass/Vol] 0.2 mg/dL NINF - 0.3 mg/dL [facility] Protein [Mass/Vol] 5.9 g/dL Low 6.4 - 8.3 g/dL [facility] MAGNESIUMon 09-08-2023 Magnesium [Mass/Vol] 1.8 mg/dL Normal 1.6-2.6 [facility] Comment on above: Performed By: #### M MERLE, JO ANN, HFP, CHM7 ####[facility] (DEFAULT)[address] [place] [address] Interpretation and review of laboratory results Normal [facility] Magnesium [Mass/Vol] 1.8 mg/dL 1.6 - 2 .6 mg/dL [facility] No Panel Informationon 09-08 Interpretation and review of laboratory results Abnormal [facility] PHOSPHATE, INORGANICon 09-08 Interpretation and review of laboratory results Normal [facility] Phosphate [Mass/Vol] 4.1 mg/dL 2.2 - 4 .6 mg/dL [facility] Phosphorous 4.1 mg/dL Normal 2.2-4.6 [facility] Comment on above: Performed By: #### M MERLE, IPB, HFP, CHM7 ####[facility] (DEFAULT)[address] [place] [address] TACROLIMUS LEVEL, TROUGH (IN E DRUG LEVEL)on 09-08-2023 Interpretation and review of laboratory results Normal [facility] Tacrolimus (Bld) [Mass/Vol] 8.5 ng/mL [facility] Tacrolimus, Trough 8.5 ng/mL Normal Bone Susana ow Transplant: 4.0-12.0, Therapeutic: 5.0-15.0 [facility] Comment on above: Order Comment: Dilan jyoti draw at specified interval PRIOR to dose. Do not hold dose to wait for level. Specimens batched twice per day, (M-F) and once per day weekendsMethod performed is a chemiluminescent microparticle immunoasssay on the [employer] Information Delivery Analyst i2000.The range is based on experience at [facility] and users should be aware that target concentrations vary widely depending on concomitant therapy, time post-transplant, and desired degree of immunosuppression. Performed By: #### T ACRO ####[facility] (DEFAULT)[address] [place] [address] CBC,PLATELETSon 09-07-2023 Hematocrit (Bld) [Volume fraction] 37.1 % Low 39.6-48.8 [facility] Comment on above: Performed By: #### H EMOGC ####[facility] (DEFAULT)[address] [place] [address] Hemoglobin (Bld) [Mass/Vol] 11.9 g/dL Low 13.4-16.8 [facility] Comment on above: Performed By: #### H EMOGC ####[facility] (DEFAULT)[address] [place] [address] MCV (RBC) [Entitic vol] 86.5 fL Normal 79.0-94.5 [facility] Comment on above: Performed By: #### H EMOGC ####[facility] (DEFAULT)[address] [place] [address] Mean Cell Hgb 27.7 pg Normal 26.1-33.3 [facility] Comment on above: Performed By: #### H EMOGC ####[facility] (DEFAULT)[address] [place] [address] Mean Cell Hgb Conc 32.1 g/dL Normal 31.9-36.5 [facility] Comment on above: Performed By: #### [facility] ####[facility] (DEFAULT)[address] [place] [address] Platelet mean volume (Bld) [Entitic vol] 9.6 fL Normal 8.7-12.3 [facility] Comment on above: Performed By: #### H EMOGC ####[facility] (DEFAULT)[address] [place] [address] Platelets (Bld) [#/Vol] 176 10*3/uL Normal 146-337 [facility] Comment on above: Performed By: #### H EMO ####[facility] (DEFAULT)[address] [place] [address] RBC (Bld) [#/Vol] 4.29 10*6/uL Low 4.38-5.83 [facility] Comment on above: Performed By: #### H EMO ####[facility] (DEFAULT)[address] [place] [address] RBC Distribution 13.5 % Normal 10.9-14.3 [facility] Comment on above: Performed By: #### H EMO ####[facility] (DEFAULT)[address] [place] [address] WBC (Bld) [#/Vol] 4.10 10*3/uL Normal 3.73-10.10 [facility] Comment on above: Performed By: #### H EMO ####[facility] (DEFAULT)[address] [place] [address] Erythrocyte distribution width (RBC) [Ratio] 13.5 % 10.9 - 14.3 % [facility] Hematocrit (Bld) [Volume fraction] 37.1 % Low 39.6 - 48.8 % [facility] Hemoglobin (Bld) [Mass/Vol] 11.9 g/dL Low 13.4 - 16.8 g/dL [facility] Interpretation and review of laboratory results Abnormal [facility] MCH (RBC) [Entitic mass] 27.7 pg 26.1 - 33.3 pg [facility] MCHC (RBC) [Mass/Vol] 32.1 g/dL 31.9 - 36.5 g/dL [facility] MCV (RBC) [Entitic vol] 86.5 fL 79.0 - 94.5 fL [facility] Platelet mean volume (Bld) [Entitic vol] 9.6 fL 8.7 - 12.3 fL [facility] Platelets (Bld) [#/Vol] 176 10*3/uL 146 - 337 K/uL [facility] RBC (Bld) [#/Vol] 4.29 10*6/uL Low [facility] WBC (Bld) [#/Vol] 4.10 10*3/uL 3.73 - 10. 10 K/uL [facility] CHEM 7 (LYTES,BUN,CREA,GLUC) on 09-07-2023 Anion gap [Moles/Vol] 13 mmol/L Normal 7-17 [facility] Comment on above: Performed By: #### C HM7, IPB, MGO, HFP ####[facility] (DEFAULT)[address] [place] [address] Chloride [Moles/Vol] 113 mmol/L High 98-108 [facility] Comment on above: Performed By: #### C HM7, IPB, MGO, HFP ####[facility] (DEFAULT)[address] [place] [address] CO2 [Moles/Vol] 19 mmol/L Low 21-31 [facility] Comment on above: Performed By: #### C HM7, IPB, MGO, HFP ####[facility] (DEFAULT)[address] [place] [address] Creatinine [Mass/Vol] 1.22 mg/dL Normal 0.70-1.30 [facility] Comment on above: Performed By: #### C HM7, IPB, MGO, HFP ####[facility] (DEFAULT)[address] [place] [address] GFR/1.73 sq M.predicted among non-blacks MDRD (S/P/Bld) [Vol rate/Area] 71 mL/min/{1.73_m2} Normal >=60 [facility] Comment on above: Result Comment: Repo rted eGFR is based on the CKD-EPI 2020 equation using creatinine, age, and sex. Performed By: #### C HM7, IPB, MGO, HFP ####[facility] (DEFAULT)[address] [place] [address] Glucose [Mass/Vol] 107 mg/dL High 70-99 [facility] Comment on above: Performed By: #### C HM7, IPB, MGO, HFP ####[facility] (DEFAULT)[address] [place] [address] Osmolality [Osmolality] 295 mosm/kg Normal 278-305 [facility] Comment on above: Performed By: #### C HM7, IPB, MGO, HFP ####[facility] (DEFAULT)[address] [place] [address] Potassium [Moles/Vol] 3.9 mmol/L Normal 3.5-5.0 [facility] Comment on above: Performed By: #### C HM7, IPB, MGO, HFP ####[facility] (DEFAULT)[address] [place] [address] Sodium [Moles/Vol] 141 mmol/L Normal 135-145 [facility] Comment on above: Performed By: #### C HM7, IPB, MGO, HFP ####[facility] (DEFAULT)[address] [place] [address] Urea nitrogen [Mass/Vol] 13 mg/dL Normal 7-25 [facility] Comment on above: Performed By: #### C HM7, IPB, MGO, HFP ####[facility] (DEFAULT)[address] [place] [address] Urea nitrogen/Creatinine [Mass ratio] 11 mg/mg Normal [facility] Comment on above: Performed By: #### C HM7, IPB, MGO, HFP ####[facility] (DEFAULT)[address] [place] [address] Anion gap [Moles/Vol] 13 mmol/L 7 - 17 mmol/L [facility] Chloride [Moles/Vol] 113 mmol/L High 98 - 10 8 mmol/L [facility] CO2 [Moles/Vol] 19 mmol/L Low 21 - 31 mmol/L [facility] Creatinine [Mass/Vol] 1.22 mg/dL 0.70 - 1.30 mg/dL [facility] eGFR, CKD-EPI, Male 72 - PINF [facility] Glucose [Mass/Vol] 107 mg/dL High 70 - 99 mg/dL [facility] Osmolality Calc [Osmolality] [address] [facility] Potassium [Moles/Vol] 3.9 mmol/L 3.5 - 5.0 mmol/L [facility] Sodium [Moles/Vol] 141 mmol/L 135 - 145 mmol/L [facility] Urea nitrogen [Mass/Vol] 13 mg/dL 7 - 25 mg/dL [facility] Urea nitrogen/Creatinine [Mass ratio] 11 mg/mg [facility] HEPATIC FUNCTION PANELon Albumin [Mass/Vol] 2.9 g/dL Low 3.5-5.0 [facility] Comment on above: Performed By: #### C HM7, IPB, MGO, HFP ####[facility] (DEFAULT)[address] [place] [address] ALP [Catalytic activity/Vol] 111 U/L Normal 32-126 [facility] Comment on above: Performed By: #### C HM7, IPB, MGO, HFP ####[facility] (DEFAULT)[address] [place] [address] ALT [Catalytic activity/Vol] 18 U/L Normal 10-52 [facility] Comment on above: Performed By: #### C HM7, IPB, MGO, HFP ####[facility] (DEFAULT)[address] [place] [address] AST [Catalytic activity/Vol] 23 U/L Normal 10-39 [facility] Comment on above: Performed By: #### C HM7, IPB, MGO, HFP ####[facility] (DEFAULT)[address] [place] [address] Bilirubin [Mass/Vol] 0.8 mg/dL Normal <1.5 [facility] Comment on above: Performed By: #### C HM7, IPB, MGO, HFP ####[facility] (DEFAULT)[address] [place] [address] Bilirubin.indirect [Mass/Vol] 0.3 mg/dL High <0.3 [facility] Comment on above: Performed By: #### C HM7, IPB, MGO, HFP ####[facility] (DEFAULT)[address] [place] [address] Protein [Mass/Vol] 6.0 g/dL Low 6.4-8.3 [facility] Comment on above: Performed By: #### C HM7, IPB, MGO, HFP ####[facility] (DEFAULT)[address] [place] [address] Albumin [Mass/Vol] 2.9 g/dL Low 3.5 - 5.0 g/dL [facility] ALP [Catalytic activity/Vol] 111 U/L 32 - 126 U/L [facility] ALT [Catalytic activity/Vol] 18 U/L 10 - 52 U/L [facility] AST [Catalytic activity/Vol] 23 U/L 10 - 39 U/L [facility] Bilirubin [Mass/Vol] 0.8 mg/dL NINF - 1.5 mg/dL [facility] Bilirubin.direct [Mass/Vol] 0.3 mg/dL High NINF - 0.3 mg/dL [facility] Protein [Mass/Vol] 6.0 g/dL Low 6.4 - 8.3 g/dL [facility] MAGNESIUMon 09-07-2023 Magnesium [Mass/Vol] 1.7 mg/dL Normal 1.6-2.6 [facility] Comment on above: Performed By: #### C HM7, IPB, MGO, HFP ####[facility] (DEFAULT)[address] [place] [address] Interpretation and review of laboratory results Normal [facility] Magnesium [Mass/Vol] 1.7 mg/dL 1.6 - 2 .6 mg/dL [facility] No Panel Informationon 09-07 Interpretation and review of laboratory results Abnormal [facility] PHOSPHATE, INORGANICon 09-07 Phosphorous 4.4 mg/dL Normal 2.2-4.6 [facility] Comment on above: Performed By: #### C HM7, IPB, MGO, HFP ####[facility] (DEFAULT)[address] [place] [address] Interpretation and review of laboratory results Normal [facility] Phosphate [Mass/Vol] 4.4 mg/dL 2.2 - 4 .6 mg/dL [facility] TACROLIMUS LEVEL, TROUGH (IN E DRUG LEVEL)Ordered By: Elizabeth Maldonado on 09-07-2023 Interpretation and review of laboratory results Normal [facility] Tacrolimus (Bld) [Mass/Vol] 7.8 ng/mL [facility] TACROLIMUS LEVEL, TROUGH (IN E DRUG LEVEL)on 09-07-2023 Tacrolimus, Trough 7.8 ng/mL Normal Bone Susana ow Transplant: 4.0-12.0, Therapeutic: 5.0-15.0 [facility] Comment on above: Order Comment: Pleas e draw at specified interval PRIOR to dose. Do not hold dose to wait for level. Specimens batched twice per day, (M-F) and once per day weekendsMethod performed is a chemiluminescent microparticle immunoasssay on the [employer] Information Delivery Analyst i2000.The range is based on experience at [facility] and users should be aware that target concentrations vary widely depending on concomitant therapy, time post-transplant, and desired degree of immunosuppression. Performed By: #### T ACRO ####[facility] (DEFAULT)[address] [place] [address] CBC,PLATELETSon 09-06-2023 Hematocrit (Bld) [Volume fraction] 38.4 % Low 39.6-48.8 [facility] Comment on above: Performed By: #### H EMOGC ####[facility] (DEFAULT)[address] [place] [address] Hemoglobin (Bld) [Mass/Vol] 11.9 g/dL Low 13.4-16.8 [facility] Comment on above: Performed By: #### H EMOGC ####[facility] (DEFAULT)[address] [place] [address], [place] [address] MCV (RBC) [Entitic vol] 85.9 fL Normal 79.0-94.5 [facility] Comment on above: Performed By: #### H EMOGC ####[facility] (DEFAULT)[address] [place] [address] Mean Cell Hgb 26.6 pg Normal 26.1-33.3 [facility] Comment on above: Performed By: #### H EMOGC ####[facility] (DEFAULT)[address] [place] [address] Mean Cell Hgb Conc 31.0 g/dL Low 31.9-36.5 [facility] Comment on above: Performed By: #### H EMOGC ####[facility] (DEFAULT)[address] [facility] [place] [place] [address] Platelet mean volume (Bld) [Entitic vol] 9.7 fL Normal 8.7-12.3 [facility] Comment on above: Performed By: #### H EMO ####[facility] (DEFAULT)[address] [facility] [place] [place] [address] Platelets (Bld) [#/Vol] 181 10*3/uL Normal 146-337 [facility] Comment on above: Performed By: #### H EMO ####[facility] (DEFAULT)[address] [place] [address] RBC (Bld) [#/Vol] 4.47 10*6/uL Normal 4.38-5.83 [facility] Comment on above: Performed By: #### H EMO ####[facility] (DEFAULT)[address] [place] [address] RBC Distribution 13.4 % Normal 10.9-14.3 [facility] Comment on above: Performed By: #### H EMO ####[facility] (DEFAULT)[address] [place] [address] WBC (Bld) [#/Vol] 4.41 10*3/uL Normal 3.73-10.10 [facility] Comment on above: Performed By: #### H [facility] ####[facility] (DEFAULT)[address] [place] [address] Erythrocyte distribution width (RBC) [Ratio] 13.4 % 10.9 - 14.3 % [facility] Hematocrit (Bld) [Volume fraction] 38.4 % Low 39.6 - 48.8 % [facility] Hemoglobin (Bld) [Mass/Vol] 11.9 g/dL Low 13.4 - 16.8 g/dL [facility] Interpretation and review of laboratory results Abnormal [facility] MCH (RBC) [Entitic mass] 26.6 pg 26.1 - 33.3 pg [facility] MCHC (RBC) [Mass/Vol] 31.0 g/dL Low 31.9 - 36.5 g/dL [facility] MCV (RBC) [Entitic vol] 85.9 fL 79.0 - 94.5 fL [facility] Platelet mean volume (Bld) [Entitic vol] 9.7 fL 8.7 - 12.3 fL [facility] Platelets (Bld) [#/Vol] 181 10*3/uL 146 - 337 K/uL [facility] RBC (Bld) [#/Vol] 4.47 10*6/uL [facility] WBC (Bld) [#/Vol] 4.41 10*3/uL 3.73 - 10. 10 K/uL [facility] CHEM 7 (LYTES,BUN,CREA,GLUC) on 09-06-2023 Anion gap [Moles/Vol] 14 mmol/L 7 - 17 mmol/L [facility] Chloride [Moles/Vol] 109 mmol/L High 98 - 10 8 mmol/L [facility] CO2 [Moles/Vol] 19 mmol/L Low 21 - 31 mmol/L [facility] Creatinine [Mass/Vol] 1.26 mg/dL 0.70 - 1.30 mg/dL [facility] eGFR, CKD-EPI, Male 70 - PINF [facility] Glucose [Mass/Vol] 114 mg/dL High 70 - 99 mg/dL [facility] Osmolality Calc [Osmolality] 291 [facility] Potassium [Moles/Vol] 4.1 mmol/L 3.5 - 5.0 mmol/L [facility] Sodium [Moles/Vol] 138 mmol/L 135 - 145 mmol/L [facility] Urea nitrogen [Mass/Vol] 16 mg/dL 7 - 25 mg/dL [facility] Urea nitrogen/Creatinine [Mass ratio] 13 mg/mg [facility] Anion gap [Moles/Vol] 14 mmol/L Normal 7-17 [facility] Comment on above: Performed By: #### M MERLE, CHM7, HFP ####[facility] (DEFAULT)[address] [place] [address] Chloride [Moles/Vol] 109 mmol/L High 98-108 [facility] Comment on above: Performed By: #### NATHANIEL RAMÍREZ, HFP ####[facility] (DEFAULT)[address] [place] [address] CO2 [Moles/Vol] 19 mmol/L Low 21-31 [facility] Comment on above: Performed By: #### NATHANIEL RAMÍREZ, HFP ####[facility] (DEFAULT)[address] [place] [address] Creatinine [Mass/Vol] 1.26 mg/dL Normal 0.70-1.30 [facility] Comment on above: Performed By: #### NATHANIEL RAMÍREZ, HFP ####[facility] (DEFAULT)[address] [facility] [place] [place] [address] GFR/1.73 sq M.predicted among non-blacks MDRD (S/P/Bld) [Vol rate/Area] 69 mL/min/{1.73_m2} Normal >=60 [facility] Comment on above: Result Comment: Repo rted eGFR is based on the CKD-EPI 2020 equation using creatinine, age, and sex. Performed By: #### NATHANIEL RAMÍREZ, HFP ####[facility] (DEFAULT)[address] [facility] [place] [place] [address] Glucose [Mass/Vol] 114 mg/dL High 70-99 [facility] Comment on above: Performed By: #### NATHANIEL RAMÍREZ, HFP ####[facility] (DEFAULT)[address] [place] [address] Osmolality [Osmolality] 291 mosm/kg Normal 278-305 [facility] Comment on above: Performed By: #### NATHANIEL RAMÍREZ, HFP ####[facility] (DEFAULT)[address] [place] [address] Potassium [Moles/Vol] 4.1 mmol/L Normal 3.5-5.0 [facility] Comment on above: Performed By: #### M NATHANIEL BLOOM, HFP ####[facility] (DEFAULT)[address] [place] [address] Sodium [Moles/Vol] 138 mmol/L Normal 135-145 [facility] Comment on above: Performed By: #### NATHANIEL RAMÍREZ, HFP ####[facility] (DEFAULT)[address] [place] [address] Urea nitrogen [Mass/Vol] 16 mg/dL Normal 7-25 [facility] Comment on above: Performed By: #### NATHANIEL RAMÍREZ, HFP ####[facility] (DEFAULT)[address] [place] [address] Urea nitrogen/Creatinine [Mass ratio] 13 mg/mg Normal [facility] Comment on above: Performed By: #### NATHANIEL RAMÍREZ, HFP ####[facility] (DEFAULT)[address] [place] [address] HEPATIC FUNCTION PANELon Albumin [Mass/Vol] 3.0 g/dL Low 3.5 - 5.0 g/dL [facility] ALP [Catalytic activity/Vol] 115 U/L 32 - 126 U/L [facility] ALT [Catalytic activity/Vol] 25 U/L 10 - 52 U/L [facility] AST [Catalytic activity/Vol] 31 U/L 10 - 39 U/L [facility] Bilirubin [Mass/Vol] 1.0 mg/dL [facility] mg/dL [facility] Bilirubin.direct [Mass/Vol] 0.3 mg/dL High NINF - 0.3 mg/dL [facility] Protein [Mass/Vol] 6.3 g/dL Low 6.4 - 8.3 g/dL [facility] Albumin [Mass/Vol] 3.0 g/dL Low 3.5-5.0 [facility] Comment on above: Performed By: #### M HELEN BLOOMM7, HFP ####[facility] (DEFAULT)[address] [place] [address] ALP [Catalytic activity/Vol] 115 U/L Normal 32-126 [facility] Comment on above: Performed By: #### M HELEN BLOOMM7, HFP ####[facility] (DEFAULT)[address] [place] [address] ALT [Catalytic activity/Vol] 25 U/L Normal 10-52 [facility] Comment on above: Performed By: #### M HELEN BLOOMM7, HFP ####[facility] (DEFAULT)[address] [place] [address] AST [Catalytic activity/Vol] 31 U/L Normal 10-39 [facility] Comment on above: Performed By: #### Rod BLOOM CHM7, HFP ####[facility] (DEFAULT)[address] [place] [address] Bilirubin [Mass/Vol] 1.0 mg/dL Normal <1.5 [facility] Comment on above: Performed By: #### M HELEN BLOOMM7, HFP ####[facility] (DEFAULT)[address] [place] [address] Bilirubin.indirect [Mass/Vol] 0.3 mg/dL High <0.3 [facility] Comment on above: Performed By: #### M HELEN BLOOMM7, HFP ####[facility] (DEFAULT)[address] [place] [address] Protein [Mass/Vol] 6.3 g/dL Low 6.4-8.3 [facility] Comment on above: Performed By: #### M MERLE CHM7, HFP ####[facility] (DEFAULT)[address] [place] [address] MAGNESIUMon 09-06-2023 Interpretation and review of laboratory results Normal [facility] Magnesium [Mass/Vol] 2.0 mg/dL 1.6 - 2 .6 mg/dL [facility] Magnesium [Mass/Vol] 2.0 mg/dL Normal 1.6-2.6 [facility] Comment on above: Performed By: #### M GO, CHM7, [facility] ####[facility] (DEFAULT)[address] [place] [address] No Panel Informationon 09-06 Interpretation and review of laboratory results Abnormal [facility] TACROLIMUS LEVEL, TROUGH (IN E DRUG LEVEL)on 09-06-2023 Interpretation and review of laboratory results Normal [facility] Tacrolimus (Bld) [Mass/Vol] 6.7 ng/mL [facility] Tacrolimus, Trough 6.7 ng/mL Normal Bone Susana ow Transplant: 4.0-12.0, Therapeutic: 5.0-15.0 [facility] Comment on above: Order Comment: Pleas e draw at specified interval PRIOR to dose. Do not hold dose to wait for level. Specimens batched twice per day, (M-) and once per day weekendsMethod performed is a chemiluminescent microparticle immunoasssay on the [employer] Delivery Analyst i2000.The range is based on experience at [facility] and users should be aware that target concentrations vary widely depending on concomitant therapy, time post-transplant, and desired degree of immunosuppression. Performed By: #### T ACRO ####[facility] (DEFAULT)[address] [place] [address] CBC,PLATELETSon 09-05-2023 Hematocrit (Bld) [Volume fraction] 35.6 % Low 39.6-48.8 [facility] Comment on above: Performed By: #### H [facility] ####[facility] (DEFAULT)[address] [place] [address] Hemoglobin (Bld) [Mass/Vol] 11.4 g/dL Low 13.4-16.8 [facility] Comment on above: Performed By: #### H [facility] ####[facility] (DEFAULT)[address] [facility] [place] [place] [address] MCV (RBC) [Entitic vol] 86.0 fL Normal 79.0-94.5 [facility] Comment on above: Performed By: #### H EMOGC ####[facility] (DEFAULT)[address] [place] [place] [address] Mean Cell Hgb 27.5 pg Normal 26.1-33.3 [facility] Comment on above: Performed By: #### H EMOGC ####[facility] (DEFAULT)[address] [facility] [place] [place] [address] Mean Cell Hgb Conc 32.0 g/dL Normal 31.9-36.5 [facility] Comment on above: Performed By: #### H EMOGC ####[facility] (DEFAULT)[address] [facility] [place] [place] [address] Platelet mean volume (Bld) [Entitic vol] 10.0 fL Normal 8.7-12.3 [facility] Comment on above: Performed By: #### H EMOGC ####[facility] (DEFAULT)[address] [facility] [place] [place] [address] Platelets (Bld) [#/Vol] 170 10*3/uL Normal 146-337 [facility] Comment on above: Performed By: #### H EMOGC ####[facility] (DEFAULT)[address] [place] [place] [address] RBC (Bld) [#/Vol] 4.14 10*6/uL Low 4.38-5.83 [facility] Comment on above: Performed By: #### H EMOGC ####[facility] (DEFAULT)[address] [facility] [place] [address] RBC Distribution 13.5 % Normal 10.9-14.3 [facility] Comment on above: Performed By: #### H EMOGC ####[facility] (DEFAULT)[address] [place] [address] WBC (Bld) [#/Vol] 4.24 10*3/uL Normal 3.73-10.10 [facility] Comment on above: Performed By: #### [facility] [place] ####[facility] (DEFAULT)[address] [place] [address] Erythrocyte distribution width (RBC) [Ratio] 13.5 % 10.9 - 14.3 % [facility] Hematocrit (Bld) [Volume fraction] 35.6 % Low 39.6 - 48.8 % [facility] Hemoglobin (Bld) [Mass/Vol] 11.4 g/dL Low 13.4 - 16.8 g/dL [facility] Interpretation and review of laboratory results Abnormal [facility] MCH (RBC) [Entitic mass] 27.5 pg 26.1 - 33.3 pg [facility] MCHC (RBC) [Mass/Vol] 32.0 g/dL 31.9 - 36.5 g/dL [facility] MCV (RBC) [Entitic vol] 86.0 fL 79.0 - 94.5 fL [facility] Platelet mean volume (Bld) [Entitic vol] 10.0 fL 8.7 - 12.3 fL [facility] Platelets (Bld) [#/Vol] 170 10*3/uL 146 - 337 K/uL [facility] RBC (Bld) [#/Vol] 4.14 10*6/uL Low [facility] WBC (Bld) [#/Vol] 4.24 10*3/uL 3.73 - 10. 10 K/uL [facility] CHEM 7 (LYTES,BUN,CREA,GLUC) on 09-05-2023 Anion gap [Moles/Vol] 12 mmol/L Normal 7-17 [facility] Comment on above: Performed By: #### H FP, CHM7, MGO ####[facility] (DEFAULT)[address] [place] [address] Chloride [Moles/Vol] 107 mmol/L Normal 98-108 [facility] Comment on above: Performed By: #### H NATHANIEL MONCADA, MGO ####[facility] (DEFAULT)[address] [facility] [place] [place] [address] CO2 [Moles/Vol] 20 mmol/L Low 21-31 [facility] Comment on above: Performed By: #### H NATHANIEL MONCADA, MGO ####[facility] (DEFAULT)[address] [facility] [place] [address] Creatinine [Mass/Vol] 1.43 mg/dL High 0.70-1.30 [facility] Comment on above: Performed By: #### H NATHANIEL MONCADA, MGO ####[facility] (DEFAULT)[address] [place] [address] GFR/1.73 sq M.predicted among non-blacks MDRD (S/P/Bld) [Vol rate/Area] 59 mL/min/{1.73_m2} Low >=60 [facility] Comment on above: Result Comment: Repo rted eGFR is based on the CKD-EPI 2020 equation using creatinine, age, and sex. Performed By: #### H NATHANIEL MONCADA, MGO ####[facility] (DEFAULT)[address] [place] [address] Glucose [Mass/Vol] 111 mg/dL High 70-99 [facility] Comment on above: Performed By: #### H NATHANIEL MONCADA, MGO ####[facility] (DEFAULT)[address] [place] [address] Osmolality [Osmolality] 286 mosm/kg Normal 278-305 [facility] Comment on above: Performed By: #### H HELEN MONCADAM7, MGO ####[facility] (DEFAULT)[address] [facility] [place] [address] Potassium [Moles/Vol] 4.2 mmol/L Normal 3.5-5.0 [facility] Comment on above: Performed By: #### H NATHANIEL MONCADA, MGO ####[facility] (DEFAULT)[address] [place] [address] Sodium [Moles/Vol] 135 mmol/L Normal 135-145 [facility] Comment on above: Performed By: #### H NATHANIEL MONCADA, MGO ####[facility] (DEFAULT)[address] [place] [address] Urea nitrogen [Mass/Vol] 18 mg/dL Normal 7-25 [facility] Comment on above: Performed By: #### NATHANIEL MCKINNON, MGO ####[facility] (DEFAULT)[address] [place] [address] Urea nitrogen/Creatinine [Mass ratio] 13 mg/mg Normal [facility] Comment on above: Performed By: #### NATHANIEL MCKINNON, MGO ####[facility] (DEFAULT)[address] [place] [address] Anion gap [Moles/Vol] 12 mmol/L 7 - 17 mmol/L [facility] Chloride [Moles/Vol] 107 mmol/L 98 - 10 8 mmol/L [facility] CO2 [Moles/Vol] 20 mmol/L Low 21 - 31 mmol/L [facility] Creatinine [Mass/Vol] 1.43 mg/dL High 0.70 - 1.30 mg/dL [facility] eGFR, CKD-EPI, Male 60 Low - [facility] Glucose [Mass/Vol] 111 mg/dL High 70 - 99 mg/dL [facility] Osmolality Calc [Osmolality] [address] [facility] Potassium [Moles/Vol] 4.2 mmol/L 3.5 - 5.0 mmol/L [facility] Sodium [Moles/Vol] 135 mmol/L 135 - 145 mmol/L [facility] Urea nitrogen [Mass/Vol] 18 mg/dL 7 - 25 mg/[facility] Urea nitrogen/Creatinine [Mass ratio] 13 mg/mg [facility] CONTINUOUS CARDIAC MONITORIN G STRIPon 09-05-2023 [facility] HEPATIC FUNCTION PANELon Albumin [Mass/Vol] 2.8 g/dL Low 3.5-5.0 [facility] Comment on above: Performed By: #### H FP, CHM7, MGO ####[facility] (DEFAULT)[address] [place] [address] ALP [Catalytic activity/Vol] 103 U/L Normal 32-126 [facility] Comment on above: Performed By: #### H FP, CHM7, MGO ####[facility] (DEFAULT)[address] [place] [address] ALT [Catalytic activity/Vol] 26 U/L Normal 10-52 [facility] Comment on above: Performed By: #### H FP, CHM7, MGO ####[facility] (DEFAULT)[address] [place] [address] AST [Catalytic activity/Vol] 38 U/L Normal 10-39 [facility] Comment on above: Performed By: #### H FP, CHM7, MGO ####[facility] (DEFAULT)[address] [place] [address] Bilirubin [Mass/Vol] 0.9 mg/dL Normal <1.5 [facility] Comment on above: Performed By: #### H FP, CHM7, MGO ####[facility] (DEFAULT)[address] [place] [address] Bilirubin.indirect [Mass/Vol] 0.1 mg/dL Normal <0.3 [facility] Comment on above: Performed By: #### H FP, CHM7, MGO ####[facility] (DEFAULT)[address] [place] [address] Protein [Mass/Vol] 6.1 g/dL Low 6.4-8.3 [facility] Comment on above: Performed By: #### H NATHANIEL MONCADA, O ####[facility] (DEFAULT)[address] [place] [address] Albumin [Mass/Vol] 2.8 g/dL Low 3.5 - 5.0 g/dL [facility] ALP [Catalytic activity/Vol] 103 U/L 32 - 126 U/L [facility] ALT [Catalytic activity/Vol] 26 U/L 10 - 52 U/L [facility] AST [Catalytic activity/Vol] 38 U/L 10 - 39 U/L [facility] Bilirubin [Mass/Vol] 0.9 mg/dL NINF - 1.5 mg/dL [facility] Bilirubin.direct [Mass/Vol] 0.1 mg/dL NINF - 0.3 mg/dL [facility] Protein [Mass/Vol] 6.1 g/dL Low 6.4 - 8.3 g/dL [facility] HISTOPLASMA ANTIGEN, FLUIDon 09-05-2023 FH SOURCE BAL RML [facility] Histo FLD interpretation Negative [facility] Histoplasma Antigen, FLUID Not detected ng/mL [facility] HISTOPLASMA CAPSULATUM/BLAST OMYCES SPECIES,PCR FLUIDon 09-05-2023 HISTO/BLASTO RESULT Negative Not Applicable [facility] Specimen source Nom (Unsp spec) BAL RML [facility] IMMUNOPHENOTYPING, TISSUE/FL UIDon 09-05-2023 BKR DX CODE Use Ordering [facility] Flow Interpretation See Comment [facility] Flow Interpreted by: Yossi Perla MD, PhD [facility] MAGNESIUMon 09-05-2023 Magnesium [Mass/Vol] 1.7 mg/dL Normal 1.6-2.6 [facility] Comment on above: Performed By: #### H NATHANIEL MONCADA, MGO ####[facility] (DEFAULT)[address] [place] [address] Interpretation and review of laboratory results Normal [facility] Magnesium [Mass/Vol] 1.7 mg/dL 1.6 - 2 .6 mg/dL [facility] No Panel Informationon 09-05 Interpretation and review of laboratory results Abnormal [facility] TACROLIMUS LEVEL, TROUGH (IN E DRUG LEVEL)Ordered By: Raymundo Mehta on 09-05-2023 Interpretation and review of laboratory results Normal [facility] Tacrolimus (Bld) [Mass/Vol] 5.3 ng/mL [facility] TACROLIMUS LEVEL, TROUGH (IN E DRUG LEVEL)on 09-05-2023 Tacrolimus, Trough 5.3 ng/mL Normal [facility] Susana ow Transplant: 4.0-12.0, Therapeutic: 5.0-15.0 [facility] Comment on above: Order Comment: Pleas e draw at specified interval PRIOR to dose. Do not hold dose to wait for level. Specimens batched twice per day, (M-F) and once per day weekendsMethod performed is a chemiluminescent microparticle immunoasssay on the [employer] Delivery Analyst i2000.The range is based on experience at [facility] and users should be aware that target concentrations vary widely depending on concomitant therapy, time post-transplant, and desired degree of immunosuppression. Performed By: #### T ACRO ####[facility] (DEFAULT)[address] [place] [address] ARTERIAL BLOOD GAS (FULL GOSS EL)on 09-04-2023 Base Excess -1.2 mmol/L Normal -3.0-3.0 [facility] Comment on above: Performed By: #### G YASMINE ####[facility] (DEFAULT)[address] [place] [address] Carboxyhemoglobin 0.7 % Normal <=1.5 [facility] Comment on above: Performed By: #### G YASMINE ####[facility] (DEFAULT)[address] [place] [address] Glucose [Mass/Vol] 159 mg/dL High 70-99 [facility] Comment on above: Performed By: #### G YASMINE ####[facility] (DEFAULT)[address] [place] [address] HCO3 (Bld) [Moles/Vol] 22 mmol/L Normal 22-28 [facility] Comment on above: Performed By: #### G YASMINE ####[facility] (DEFAULT)[address] [place] [address] Hematocrit (Bld) [Volume fraction] 38.0 % Low 40.2-50.4 [facility] Comment on above: Performed By: #### Vale UNDERWOOD ####[facility] (DEFAULT)[address] [place] [address] Hemoglobin (Bld) [Mass/Vol] 12.6 g/dL Low 13.4-16.8 [facility] Comment on above: Performed By: #### Vale UNDERWOOD ####[facility] (DEFAULT)[address] [place] [address] Ionized Calcium, Whole Blood 4.79 mg/dL Normal 4.60-5.30 [facility] Comment on above: Performed By: #### Vale UNDERWOOD ####[facility] (DEFAULT)[address] [place] [address] Lactate, Whole Blood 2.0 mmol/L High 0.5-1.6 [facility] Comment on above: Performed By: #### Vale UNDERWOOD ####[facility] (DEFAULT)[address] [place] [address] Methemoglobin 0.0 % Normal <=1.5 [facility] Comment on above: Performed By: #### Vale UNDERWOOD ####[facility] (DEFAULT)[address] [place] [address] Oxyhemoglobin 91 % Low 94-98 [facility] Comment on above: Performed By: #### Vale UNDERWOOD ####[facility] (DEFAULT)[address] [place] [address], [place] [address] pCO2 30 mm Hg Low 32-48 [facility] Comment on above: Performed By: #### Vale UNDERWOOD ####[facility] (DEFAULT)[address] [place] [address] [place] [address] pH (Bld) 7.48 [pH] High 7.35-7.45 [facility] Comment on above: Performed By: #### Vale UNDERWOOD ####[facility] (DEFAULT)[address] [place] [address] pO2 62 mm Hg Low 83-108 [facility] Comment on above: Performed By: #### Vale UNDERWOOD ####[facility] (DEFAULT)[address] [place] [address] Potassium [Moles/Vol] 4.2 mmol/L Normal 3.5-5.0 [facility] Comment on above: Performed By: #### Vale UNDERWOOD ####[facility] (DEFAULT)[address] [place] [address], [place] [address] sO2 92 % Low 94-98 [facility] Comment on above: Performed By: #### Vale UNDERWOOD ####[facility] (DEFAULT)[address] [place] [address] Sodium [Moles/Vol] 130 mmol/L Low 135-145 [facility] Comment on above: Performed By: #### Vale UNDERWOOD ####[facility] (DEFAULT)[address] [place] [address] Specimen type Nom (Spec) Arterial Normal [facility] Comment on above: Performed By: #### Vale UNDERWOOD ####[facility] (DEFAULT)[address] [place] [address] Base excess Calc (Bld) [Moles/Vol] -1.2000 mmol/L -3.0 - 3.0 mmol/L [facility] Calcium.ionized (Bld) [Mass/Vol] 4.79 mg/dL 4.60 - 5.30 mg/dL [facility] Carboxyhemoglobin (Bld) [Mass fraction] 0.7 % NINF - 1.5 % [facility] CO2 (Bld) [Partial pressure] 30 mm[Hg] Low [facility] Glucose [Mass/Vol] 159 mg/dL High 70 - 99 mg/dL [facility] HCO3 (Bld) [Moles/Vol] 22 mmol/L 22 - 28 mmol/L [facility] Hematocrit (Bld) [Volume fraction] 38.0 % Low 40.2 - 50.4 % [facility] Hemoglobin (Bld) [Mass/Vol] 12.6 g/dL Low 13.4 - 16.8 g/dL [facility] Interpretation and review of laboratory results Abnormal [facility] Lactate [Moles/Vol] 2.0 mmol/L High 0.5 - 1. 6 mmol/L [facility] Methemoglobin (Bld) [Mass fraction] 0.0 % NINF - 1.5 % [facility] Oxygen (Bld) [Partial pressure] 62 mm[Hg] Low [facility] Oxygen saturation in Blood 92 % Low 94 - 98 % [facility] Oxyhemoglobin 91 % Low 94 - 98 % [facility] pH (Bld) 7.48 [pH] High 7.35 - 7.45 [facility] Potassium [Moles/Vol] 4.2 mmol/L 3.5 - 5.0 mmol/L [facility] Sodium [Moles/Vol] 130 mmol/L Low 135 - 145 mmol/L [facility] Specimen source Nom (Unsp spec) Arterial [facility] Bacteria identified Respirat ory culture Nom (Unsp spec)on 09-04-2023 Bacteria identified Cx Nom (Unsp spec) NO GROWTH DAY 2 OF 2 [facility] Microscopic observation Other stain Nom (Unsp spec) Cytocentrifuge preparation [facility] Microscopic observation Other stain Nom (Unsp spec) Neutrophils, Rare [facility] Microscopic observation Other stain Nom (Unsp spec) Red Blood Cells Present [facility] Microscopic observation Other stain Nom (Unsp spec) No organisms seen [facility] Bacteria identified Respirat ory culture Nom (Unsp spec)Ordered By: Jose Salgado on 09-04-2023 Bacteria identified Cx Nom (Unsp spec) NO GROWTH DAY 2 OF 2 [facility] Microscopic observation Other stain Nom (Unsp spec) Cytocentrifuge preparation [facility] Microscopic observation Other stain Nom (Unsp spec) Neutrophils, Moderate [facility] Microscopic observation Other stain Nom (Unsp spec) Red Blood Cells Present [facility] Microscopic observation Other stain Nom (Unsp spec) No organisms seen [facility] CBC,PLATELETSon 09-04-2023 Hematocrit (Bld) [Volume fraction] 38.7 % Low 39.6-48.8 [facility] Comment on above: Performed By: #### [facility] [place] ####[facility] (DEFAULT)[address] [place] [address] Hemoglobin (Bld) [Mass/Vol] 12.3 g/dL Low 13.4-16.8 [facility] Comment on above: Performed By: #### H EMO ####[facility] (DEFAULT)[address] [place] [address] MCV (RBC) [Entitic vol] 87.8 fL Normal 79.0-94.5 [facility] Comment on above: Performed By: #### H EMO ####[facility] (DEFAULT)[address] [place] [address] Mean Cell Hgb 27.9 pg Normal 26.1-33.3 [facility] Comment on above: Performed By: #### H EMO ####[facility] (DEFAULT)[address] [place] [address] Mean Cell Hgb Conc 31.8 g/dL Low 31.9-36.5 [facility] Comment on above: Performed By: #### H EMOGC ####[facility] (DEFAULT)[address] [facility] [place] [place] [address] Platelet mean volume (Bld) [Entitic vol] 9.8 fL Normal 8.7-12.3 [facility] Comment on above: Performed By: #### H EMOGC ####[facility] (DEFAULT)[address] [facility] [place] [address] Platelets (Bld) [#/Vol] 173 10*3/uL Normal 146-337 [facility] Comment on above: Performed By: #### H EMO ####[facility] (DEFAULT)[address] [place] [address] RBC (Bld) [#/Vol] 4.41 10*6/uL Normal 4.38-5.83 [facility] Comment on above: Performed By: #### H EMOGC ####[facility] (DEFAULT)[address] [facility] [place] [address] RBC Distribution 13.2 % Normal 10.9-14.3 [facility] Comment on above: Performed By: #### H EMOGC ####[facility] (DEFAULT)[address] [facility] [place] [address] WBC (Bld) [#/Vol] 4.57 10*3/uL Normal 3.73-10.10 [facility] Comment on above: Performed By: #### H EMOGC ####[facility] (DEFAULT)[address] [facility] [place] [address] Erythrocyte distribution width (RBC) [Ratio] 13.2 % 10.9 - 14.3 % [facility] Hematocrit (Bld) [Volume fraction] 38.7 % Low 39.6 - 48.8 % [facility] Hemoglobin (Bld) [Mass/Vol] 12.3 g/dL Low 13.4 - 16.8 g/dL [facility] Interpretation and review of laboratory results Abnormal [facility] MCH (RBC) [Entitic mass] 27.9 pg 26.1 - 33.3 pg [facility] MCHC (RBC) [Mass/Vol] 31.8 g/dL Low 31.9 - 36.5 g/dL [facility] MCV (RBC) [Entitic vol] 87.8 fL 79.0 - 94.5 fL [facility] Platelet mean volume (Bld) [Entitic vol] 9.8 fL 8.7 - 12.3 fL [facility] Platelets (Bld) [#/Vol] 173 10*3/uL 146 - 337 K/uL [facility] RBC (Bld) [#/Vol] 4.41 10*6/uL [facility] WBC (Bld) [#/Vol] 4.57 10*3/uL 3.73 - 10. 10 K/uL [facility] CHEM 7 (LYTES,BUN,CREA,GLUC) on 09-04-2023 Anion gap [Moles/Vol] 16 mmol/L Normal 7-17 [facility] Comment on above: Performed By: #### NATHANIEL RAMÍREZ, HFP ####[facility] (DEFAULT)[address] [place] [address] Chloride [Moles/Vol] 104 mmol/L Normal 98-108 [facility] Comment on above: Performed By: #### NATHANIEL RAMÍREZ, HFP ####[facility] (DEFAULT)[address] [place] [address] CO2 [Moles/Vol] 18 mmol/L Low 21-31 [facility] Comment on above: Performed By: #### NATHANIEL RAMÍREZ, HFP ####[facility] (DEFAULT)[address] [place] [address] Creatinine [Mass/Vol] 1.22 mg/dL Normal 0.70-1.30 [facility] Comment on above: Performed By: #### NATHANIEL RAMÍREZ, HFP ####[facility] (DEFAULT)[address] [place] [address] GFR/1.73 sq M.predicted among non-blacks MDRD (S/P/Bld) [Vol rate/Area] 71 mL/min/{1.73_m2} Normal >=60 [facility] Comment on above: Result Comment: Repo rted eGFR is based on the CKD-EPI 2020 equation using creatinine, age, and sex. Performed By: #### NATHANIEL RAMÍREZ, HFP ####[facility] (DEFAULT)[address] [facility] [place] [address] Glucose [Mass/Vol] 124 mg/dL High 70-99 [facility] Comment on above: Performed By: #### NATHANIEL RAMÍREZ, HFP ####[facility] (DEFAULT)[address] [facility] [place] [place] [address] Osmolality [Osmolality] 284 mosm/kg Normal 278-305 [facility] Comment on above: Performed By: #### NATHANIEL RAMÍREZ, HFP ####[facility] (DEFAULT)[address] [place] [address] Potassium [Moles/Vol] 3.9 mmol/L Normal 3.5-5.0 [facility] Comment on above: Performed By: #### NATHANIEL RAMÍREZ, HFP ####[facility] (DEFAULT)[address] [place] [address] Sodium [Moles/Vol] 134 mmol/L Low 135-145 [facility] Comment on above: Performed By: #### NATHANIEL RAMÍREZ, HFP ####[facility] (DEFAULT)[address] [facility] [place] [place] [address] Urea nitrogen [Mass/Vol] 15 mg/dL Normal 7-25 [facility] Comment on above: Performed By: #### M NATHANIEL BLOOM, HFP ####[facility] (DEFAULT)[address] [place] [address] Urea nitrogen/Creatinine [Mass ratio] 12 mg/mg Normal [facility] Comment on above: Performed By: #### M NATHANIEL BLOOM, HFP ####[facility] (DEFAULT)[address] [place] [address] Anion gap [Moles/Vol] 16 mmol/L 7 - 17 mmol/L [facility] Chloride [Moles/Vol] 104 mmol/L 98 - 10 8 mmol/L [facility] CO2 [Moles/Vol] 18 mmol/L Low 21 - 31 mmol/L [facility] Creatinine [Mass/Vol] 1.22 mg/dL 0.70 - 1.30 mg/dL [facility] eGFR, CKD-EPI, Male 72 - PINF [facility] Glucose [Mass/Vol] 124 mg/dL High 70 - 99 mg/dL [facility] Osmolality Calc [Osmolality] 284 [facility] Potassium [Moles/Vol] 3.9 mmol/L 3.5 - 5.0 mmol/L [facility] Sodium [Moles/Vol] 134 mmol/L Low 135 - 145 mmol/L [facility] Urea nitrogen [Mass/Vol] 15 mg/dL 7 - 25 mg/dL [facility] Urea nitrogen/Creatinine [Mass ratio] 12 mg/mg [facility] CMV PCR,FLUIDS,URINE,EYE ETC on 09-04-2023 Specimen source Nom (Unsp spec) BAL LLL [facility] Specimen source Nom (Unsp spec) BAL RML [facility] HEPATIC FUNCTION PANELon Albumin [Mass/Vol] 3.0 g/dL Low 3.5-5.0 [facility] Comment on above: Performed By: #### M NATHANIEL BLOOM, HFP ####[facility] (DEFAULT)[address] [place] [address] ALP [Catalytic activity/Vol] 112 U/L Normal 32-126 [facility] Comment on above: Performed By: #### M HELEN BLOOMM7, HFP ####[facility] (DEFAULT)[address] [place] [address] ALT [Catalytic activity/Vol] 22 U/L Normal 10-52 [facility] Comment on above: Performed By: #### M MERLE CHM7, HFP ####[facility] (DEFAULT)[address] [place] [address] AST [Catalytic activity/Vol] 30 U/L Normal 10-39 [facility] Comment on above: Performed By: #### M MERLE CHM7, HFP ####[facility] (DEFAULT)[address] [place] [address] Bilirubin [Mass/Vol] 1.2 mg/dL Normal <1.5 [facility] Comment on above: Performed By: #### M MERLE CHM7, HFP ####[facility] (DEFAULT)[address] [place] [address] Bilirubin.indirect [Mass/Vol] 0.4 mg/dL High <0.3 [facility] Comment on above: Performed By: #### M MERLE CHM7, HFP ####[facility] (DEFAULT)[address] [place] [address] Protein [Mass/Vol] 6.4 g/dL Normal 6.4-8.3 [facility] Comment on above: Performed By: #### M MERLE CHM7, HFP ####[facility] (DEFAULT)[address] [place] [address] Albumin [Mass/Vol] 3.0 g/dL Low 3.5 - 5.0 g/dL [facility] ALP [Catalytic activity/Vol] 112 U/L 32 - 126 U/L [facility] ALT [Catalytic activity/Vol] 22 U/L 10 - 52 U/L [facility] AST [Catalytic activity/Vol] 30 U/L 10 - 39 U/L [facility] Bilirubin [Mass/Vol] 1.2 mg/dL NINF - 1.5 mg/dL [facility] Bilirubin.direct [Mass/Vol] 0.4 mg/dL High NINF - 0.3 mg/dL [facility] Protein [Mass/Vol] 6.4 g/dL 6.4 - 8.3 g/dL [facility] LEGIONELLA PCRon 09-04-2023 Legionella sp rRNA Probe Ql (Unsp spec) Negative Not Applicable [facility] Specimen source Nom (Unsp spec) BAL RML [facility] Laboratory - Microbiology an d Antimicrobial susceptibilityon 09-04-2023 CMV DNA ESTELITA+probe Ql (Unsp spec) Negative Negative [facility] MAGNESIUMon 09-04-2023 Magnesium [Mass/Vol] 1.4 mg/dL Low 1.6-2.6 [facility] Comment on above: Performed By: #### M , M7, [facility] ####[facility] (DEFAULT)[address] [place] [address] Magnesium [Mass/Vol] 1.4 mg/dL Low 1.6 - 2 .6 mg/dL [facility] No Panel Informationon 09-04 Annotation comment [Interpretation] Narrative DNR [facility] PN Report Status DNR [facility] Pneumocystis jiroveci,PCR result Negative Not Applicable [facility] Interpretation and review of laboratory results Abnormal [facility] PNEUMOCYSTIS JIROVECI,PCRon 09-04-2023 Specimen source Nom (Unsp spec) BAL LLL [facility] Specimen source Nom (Unsp spec) BAL RML [facility] Portable XR Chest Viewson RADIOLOGY RADIOLOGY [facility] Radiology Study observation (narrative) [facility] Portable XR Chest ViewsOrder ed By: Joanie Nugent on 09-04-2023 [facility] Work Phone: TACROLIMUS LEVEL, TROUGH (IN E DRUG LEVEL)on 09-04-2023 Interpretation and review of laboratory results Abnormal [facility] Tacrolimus (Bld) [Mass/Vol] 3.6 ng/mL Low [facility] Tacrolimus, Trough 3.6 ng/mL Low Bone Susana ow Transplant: 4.0-12.0, Therapeutic: 5.0-15.0 [facility] Comment on above: Order Comment: Pleas e draw at specified interval PRIOR to dose. Do not hold dose to wait for level. Specimens batched twice per day, (M-F) and once per day weekendsMethod performed is a chemiluminescent microparticle immunoasssay on the [employer]st i2000.The range is based on experience at [facility] and users should be aware that target concentrations vary widely depending on concomitant therapy, time post-transplant, and desired degree of immunosuppression. Performed By: #### T ACRO ####[facility] (DEFAULT)[address] [place] [address] XR CHEST PORTABLEon 09-04-20 XR CHEST PORTABLE Normal [facility] ASPERGILLUS ANTIGEN, BALon 1 Galactomannan Ag IA Qn (Unsp spec) <0.500 [facility] Galactomannan Ag IA Qn (Unsp spec) <0.500 [facility] BAL CONSULTOrdered By: Noa Peralta on 09-03-2023 ALVEOLAR MACROPHAGES 32 % [facility] Work Phone: Bal comments Correlation with microbiology stains and cultures is recommended. [facility] Work Phone: Bal Diff Quik Stain Quality Check Acceptable [facility] Work Phone: BKR BAL INTERPRETATION Cellular specimen comprised of alveolar macrophages and small lymphocytes. No definitive microorganisms are observed. Moderate degenerative changes. [facility] Work Phone: BKR DX CODE Use Ordering [facility] Work Phone: Eosinophils Patterson stain Ql (Unsp spec) 0 % [facility] Work Phone: Lymphocytes/100 WBC (Bld) 57 % [facility] Work Phone: Neutrophils/100 WBC Manual cnt (Bronch spec) 11 % [facility] Work Phone: Pathologist review Jame (Unsp spec) [Interp] Leonardo Peralta MD [facility] Work Phone: [facility] Work Phone: BAL CONSULTon 09-03-2023 ALVEOLAR MACROPHAGES 33 % [facility] Bal comments Correlation with microbiology stains and cultures is recommended. Correlation with viral studies is recommended. [facility] Bal Diff Quik Stain Quality Check Acceptable [facility] BKR BAL INTERPRETATION Cellular specimen comprised of alveolar macrophages and small lymphocytes. No definitive microorganisms are observed. Rare degenerating cells with changes suggestive of viral cytopathic effect are noted. Moderate degenerative changes. [facility] BKR DX CODE Use Ordering [facility] Eosinophils Patterson stain Ql (Unsp spec) 0 % [facility] Lymphocytes/100 WBC (Bld) 49 % [facility] Neutrophils/100 WBC Manual cnt (Bronch spec) 18 % [facility] Pathologist review Jame (Unsp spec) [Interp] Leonardo Peralta MD [facility] BRONCHOSCOPYon 09-03-2023 LAB, [facility] CBC,PLATELETSon 09-03-2023 Hematocrit (Bld) [Volume fraction] 39.6 % Normal 39.6-48.8 [facility] Comment on above: Performed By: #### [facility] [place] ####[facility] (DEFAULT)[address] [facility] [place] [place] [address] Hemoglobin (Bld) [Mass/Vol] 12.8 g/dL Low 13.4-16.8 [facility] Comment on above: Performed By: #### H EMOGC ####[facility] (DEFAULT)[address] [facility] [place] [place] [address] MCV (RBC) [Entitic vol] 85.9 fL Normal 79.0-94.5 [facility] Comment on above: Performed By: #### H EMOGC ####[facility] (DEFAULT)[address] [facility] [place] [place] [address] Mean Cell Hgb 27.8 pg Normal 26.1-33.3 [facility] Comment on above: Performed By: #### H EMOGC ####[facility] (DEFAULT)[address] [facility] [place] [address] Mean Cell Hgb Conc 32.3 g/dL Normal 31.9-36.5 [facility] Comment on above: Performed By: #### H EMOGC ####[facility] (DEFAULT)[address] [facility] [place] [place] [address] Platelet mean volume (Bld) [Entitic vol] 9.4 fL Normal 8.7-12.3 [facility] Comment on above: Performed By: #### H EMOGC ####[facility] (DEFAULT)[address] [facility] [place] [address] Platelets (Bld) [#/Vol] 222 10*3/uL Normal 146-337 [facility] Comment on above: Performed By: #### H EMOGC ####[facility] (DEFAULT)[address] [facility] [place] [place] [address] RBC (Bld) [#/Vol] 4.61 10*6/uL Normal 4.38-5.83 [facility] Comment on above: Performed By: #### H EMOGC ####[facility] (DEFAULT)[address] [place] [address] RBC Distribution 13.4 % Normal 10.9-14.3 [facility] Comment on above: Performed By: #### [facility] [place] ####[facility] (DEFAULT)[address] [place] [address] WBC (Bld) [#/Vol] 4.36 10*3/uL Normal 3.73-10.10 [facility] Comment on above: Performed By: #### [facility] [place] ####[facility] (DEFAULT)[address] [place] [address] Erythrocyte distribution width (RBC) [Ratio] 13.4 % 10.9 - 14.3 % [facility] Hematocrit (Bld) [Volume fraction] 39.6 % 39.6 - 48.8 % [facility] Hemoglobin (Bld) [Mass/Vol] 12.8 g/dL Low 13.4 - 16.8 g/dL [facility] Interpretation and review of laboratory results Abnormal [facility] MCH (RBC) [Entitic mass] 27.8 pg 26.1 - 33.3 pg [facility] MCHC (RBC) [Mass/Vol] 32.3 g/dL 31.9 - 36.5 g/dL [facility] MCV (RBC) [Entitic vol] 85.9 fL 79.0 - 94.5 fL [facility] Platelet mean volume (Bld) [Entitic vol] 9.4 fL 8.7 - 12.3 fL [facility] Platelets (Bld) [#/Vol] 222 10*3/uL 146 - 337 K/uL [facility] RBC (Bld) [#/Vol] 4.61 10*6/uL [facility] WBC (Bld) [#/Vol] 4.36 10*3/uL 3.73 - 10. 10 K/uL [facility] CHEM 7 (LYTES,BUN,CREA,GLUC) on 09-03-2023 Anion gap [Moles/Vol] 12 mmol/L Normal 7-17 [facility] Comment on above: Performed By: #### NATHANIEL RAMÍREZ, HFP ####[facility] (DEFAULT)[address] [place] [address] Chloride [Moles/Vol] 104 mmol/L Normal 98-108 [facility] Comment on above: Performed By: #### NATHANIEL RAMÍREZ, HFP ####[facility] (DEFAULT)[address] [facility] [place] [place] [address] CO2 [Moles/Vol] 24 mmol/L Normal 21-31 [facility] Comment on above: Performed By: #### NATHANIEL RAMÍREZ, HFP ####[facility] (DEFAULT)[address] [facility] [place] [place] [address] Creatinine [Mass/Vol] 1.20 mg/dL Normal 0.70-1.30 [facility] Comment on above: Performed By: #### NATHANIEL RAMÍREZ, HFP ####[facility] (DEFAULT)[address] [place] [address] GFR/1.73 sq M.predicted among non-blacks MDRD (S/P/Bld) [Vol rate/Area] 73 mL/min/{1.73_m2} Normal >=60 [facility] Comment on above: Result Comment: Repo rted eGFR is based on the CKD-EPI 2020 equation using creatinine, age, and sex. Performed By: #### NATHANIEL RAMÍREZ, HFP ####[facility] (DEFAULT)[address] [facility] [place] [address] Glucose [Mass/Vol] 112 mg/dL High 70-99 [facility] Comment on above: Performed By: #### NATHANIEL RAMÍREZ, HFP ####[facility] (DEFAULT)[address] [facility] [place] [place] [address] Osmolality [Osmolality] 288 mosm/kg Normal 278-305 [facility] Comment on above: Performed By: #### M GO, CHM7, HFP ####[facility] (DEFAULT)[address] [place] [address] Potassium [Moles/Vol] 4.1 mmol/L Normal 3.5-5.0 [facility] Comment on above: Performed By: #### Rod BLOOM CHM7, HFP ####[facility] (DEFAULT)[address] [place] [address] Sodium [Moles/Vol] 136 mmol/L Normal 135-145 [facility] Comment on above: Performed By: #### NATHANIEL RAMÍREZ, HFP ####[facility] (DEFAULT)[address] [facility] [place] [place] [address] Urea nitrogen [Mass/Vol] 17 mg/dL Normal 7-25 [facility] Comment on above: Performed By: #### NATHANIEL RAMÍREZ, HFP ####[facility] (DEFAULT)[address] [facility] [place] [place] [address] Urea nitrogen/Creatinine [Mass ratio] 14 mg/mg Normal [facility] Comment on above: Performed By: #### NATHANIEL RAMÍREZ, HFP ####[facility] (DEFAULT)[address] [facility] [place] [place] [address] Anion gap [Moles/Vol] 12 mmol/L 7 - 17 mmol/L [facility] Chloride [Moles/Vol] 104 mmol/L 98 - 10 8 mmol/L [facility] CO2 [Moles/Vol] 24 mmol/L 21 - 31 mmol/L [facility] Creatinine [Mass/Vol] 1.20 mg/dL 0.70 - 1.30 mg/dL [facility] eGFR, CKD-EPI, Male 73 - PINF [facility] Glucose [Mass/Vol] 112 mg/dL High 70 - 99 mg/dL [facility] Osmolality Calc [Osmolality] [address] [facility] Potassium [Moles/Vol] 4.1 mmol/L 3.5 - 5.0 mmol/L [facility] Sodium [Moles/Vol] 136 mmol/L 135 - 145 mmol/L [facility] Urea nitrogen [Mass/Vol] 17 mg/dL 7 - 25 mg/dL [facility] Urea nitrogen/Creatinine [Mass ratio] 14 mg/mg [facility] CYTOLOGY, NON-GYNOrdered By: Sherice Jimenez on 09-03-2023 CYTOLOGIC DIAGNOSIS f3gkqTHtAMLsdHEjQAEhO0dvzwH vDJPabWVuL7HykgqoIUsjXX3tDA 0zfVzmaWWrhZHqQSNdRvJdt1xdl 283iJFbp2quXJEVaezoyWl0t7kb PFSPkP7uy7f2vQ09GPHdxM7rtIA nZHmpuoXkBDbjzuOyxkOzVnr9QS Q0aTndPzbmqZP0pUKbqSY6JHywo 7WqiZmdvPgvGZI6APXzEigxDHoz jRL3mDItfAblbQRkGX8nv7fntWD 9grPrPNO0qYstsCE6vSbeqcwfs1 xsnQX1rYS0JHtilLD3ITvaCiCtE 7rkKFZnzG8hA78yE4upFKGkbTtv HPofVOGrdUP7JFB1QHChc5knINX hcIFraYLiUtUyKBdoIat9r9zqRM LmoI07tAOvjuF2nKojBYkhxFF6S G01CXdzp7JcMSIvuCvzUUHrzS5m YzIzXGxldmVsbmZjbjIzXGxldmV evqWwVXlqszUhb4MmprCrsZX2BH xizbSutJY2rYmhTZOiD4O6N410H UldnnHppeLeXpJvhlg4ASXklEwc bGlzdGxldmVsXGxldmVsbmZjMjN ibAS8PTpdQfCtRdWvxSW4EXyzQt QcpMK9AEozgZKvfXS1SHrmdLN2B Ee2QXt3GJtuOKrtLlv6mHrghSH7 RXzkiD2uGLHqV27vSlN5q5uodVL 6vRU1UMkzgDS0ZDwmHdPwE5bnYN TziQ1pE83mC9edWCZlfPvcUFsbG CMrdDV5ZLE0JQAwf0ltKGMhxKOb mYWqZmPkHZodMzf3y4btCIPlfC3 3sZBrynT7xCpfBW84NJoaa0GkXC YxePihLZHjcV6mKbCrXPlessKfy mZjbjIzXGxldmVsamMwXGxldmVs g4LufrNkaXR5IOlstdOwqML8qGu dQFRpZ6V6V814DRygvbYrdwPjRu Xrokf8YCUdoOjrnUndrXexfoLaJ WfcbgSarnLtChDhgJT5TQwkLcKh KjVxbUG1BEgrHtVrqCC9FXzijMH jdMT1YLarzNG2VUw4GMj8ZKjqHY fkJoy9gNzkzHE2FVwaxJ8gDXLsZ 95iJxB4y1ocwJL5ePF0ESmtcZU4 IJklBjLfV6qcXNCdhG5oA67mM1l xNQRclAqnIJisOXPqhJS5QGN0FL Yca9noXMCvhUHlrWVoNdUcHYuxV mp2x2xrOBOgaO54wDOugvD4yNra GX79WTobe6NnTCLfuVfiYFIicU1 mYzIzXGxldmVsbmZjbjIzXGxldm WiypOfTGyujsDaa0YfnwJsbDR9Y LzxhhJkhQS2hXjgRGWiD3Z3C299 DOmlcxLxkrIpJlLctng2RSBitWq cbGlzdGxldmVsXGxldmVsbmZjMj MkjAB8EJygGrFsWbIpaNL7XTecP nWctNV1OMrziXLodTF8ZSqybMV7 XNk3PUn7CUsrAQkgIvr2fBrhuPL 2RVmalB3uXXAsX38eKdV7wU68AZ ozuUjfzZ45PWZqnNWmaUVfjNR7Q PzfoAleuY38BCYuwHQrKKurq0Ct NHTzPjA3ONN9OMTpyVeipH51GJH wmKYbT008crJiKKtrBZ54QVTkxI PjzqFzYmTeYNJzxALznQE5GNDyB Y8toepvFWcyOGwpDEQtkqX6NXCv gLXnV8TfOUXpBL9hxecvDQJ1BXn qILFcRND7HqBcGPFud1Bqxgp2Jb WhnAd1y2xlITZnBUSvfCjlb4thC MH6SBDdlPOrL2mwsO3fMFJcBP2a tmwbb5lfTNtsMVihPQDaeYB9pcY 5YFFjbJMsY3MurT2eBXKhLUIptp NcbIjljZ2cJtrwfqKnLAYeXSFQR kQZCr6YQ2pPNOwAHX7DNRNvFKUR OHjFKBMLKVCPYNqYD1UBRFkUFyL eDKAoCMBdP0eGI0xWF7ttIblwFu AlCGbuOHCuLsLnX0LhAAMfiymkF ZDmUIMVMI5QYOURMLDKBi8MIQV6 DDNafrmzgKZ1TXydtsLovBy8bSV pkXkpbB0xSlsiqlSaDRTlRJCTxz SOVZtpO72gwnKzS7LhoSZkMPBsU LesTN65oMNoLRUhlYVuRUj7gX0t FOurtBvvfzDRuTTgqP1ceygeFSi jZjBccGFyXGxpMFxsczBccGFyfQ == [facility] Work Phone: Case Report [facility] Work Phone: Clinical History l7ydsXNpRPAdjOQiYUPh K4mejeH oRLPdhUXpX0QanvnfVBbxFG5iHL 3jrKtxgOXhrTRuAVLcHjJug5qpo 514kHKjm7qyBCGHvramnTp8tEww A47ny7I2VvmuN8osNCGaBPlhXPR xWWfeaVTnZTo5TVLuiVXyozOiEg PnCQUifBQthYC5GPFzLZ2ypvweH IfeFMblQEVymyH1YLQbuSGwG5Xs WHIbQX4dhfzpFRN3CDdjUAMhWTZ 3YbZwEILwn5Nnaka2UiWbmPl5k4 imRAQaTACclHoxz7csRZN5INSou TEcY6zizV6gWOWwBJ6ipjphg3ga LBecYJkxTIMndLB3yxN3ROJyvUL iS3QqsY2iVEVfUVRucgFrkVeeiD 5cZnMyMFxjZjEgUmVuYWwgdHJhb hGtuGHmtL3kGQHrpf7= [facility] Work Phone: For Immediate Release to Patient's MyChart? Yes Yes [facility] Work Phone: Gross Description e5opbAAlYTLbiCIvUDXo R5tkliT pKDGumWOgM1ZeryzuVOzzHH4xHI 8xoFgbyPMlxOQjPPZvIbEnw1riq 079iITng2fhMGRTiedxuAj6mIrb X35af1J4CdymB40ahYMoDEQ8ZZP lXYRttQWyTQAlNYL0CFMhsGSwB9 fvCFGvCU9sfaflFHsrBSreQPDqe WL6WPEadYItS3BpAXWwLMbeXVJt axa5PfAvRm4ptRMxbHxqBIioDMZ kXHBsYWluXGZzMjAgTExMIEJBTF lrOGXbCMPfhCVwDEd1ZMEnxJ4ur GSlwsDqmBFhzU5wiFbeKEmvAFMh OMJCJZSpgIblGSTCMCJye5AibN6 ccGFyXHBhcmRccGFyXHBhcn0= [facility] Work Phone: [facility] Work Phone: HEPATIC FUNCTION PANELon Albumin [Mass/Vol] 3.2 g/dL Low 3.5-5.0 [facility] Comment on above: Performed By: #### M MERLE CHM7, HFP ####[facility] (DEFAULT)[address] [facility] [place] [place] [address] ALP [Catalytic activity/Vol] 118 U/L Normal 32-126 [facility] Comment on above: Performed By: #### M MERLE CHM7, HFP ####[facility] (DEFAULT)[address] [place] [address] ALT [Catalytic activity/Vol] 25 U/L Normal 10-52 [facility] Comment on above: Performed By: #### M MERLE CHM7, HFP ####[facility] (DEFAULT)[address] [place] [address] AST [Catalytic activity/Vol] 32 U/L Normal 10-39 [facility] Comment on above: Performed By: #### M MERLE CHM7, HFP ####[facility] (DEFAULT)[address] [place] [address] Bilirubin [Mass/Vol] 1.0 mg/dL Normal <1.5 [facility] Comment on above: Performed By: #### M MERLE CHM7, HFP ####[facility] (DEFAULT)[address] [place] [address] Bilirubin.indirect [Mass/Vol] 0.3 mg/dL High <0.3 [facility] Comment on above: Performed By: #### M TJ BLOOM7, HFP ####[facility] (DEFAULT)[address] [place] [address] Protein [Mass/Vol] 6.5 g/dL Normal 6.4-8.3 [facility] Comment on above: Performed By: #### M TJ BLOOM7, HFP ####[facility] (DEFAULT)[address] [facility] [place] [place] [address] Albumin [Mass/Vol] 3.2 g/dL Low 3.5 - 5.0 g/dL [facility] ALP [Catalytic activity/Vol] 118 U/L 32 - 126 U/L [facility] ALT [Catalytic activity/Vol] 25 U/L 10 - 52 U/L [facility] AST [Catalytic activity/Vol] 32 U/L 10 - 39 U/L [facility] Bilirubin [Mass/Vol] 1.0 mg/dL [facility] - 1.[facility] mg/dL [facility] Bilirubin.direct [Mass/Vol] 0.3 mg/dL High NINF - 0.3 mg/dL [facility] Protein [Mass/Vol] 6.5 g/dL 6.4 - 8.3 g/dL [facility] HISTOPLASMA AND BLASTOMYCES ANTIGEN, ENZYME IMMUNOASSAY, SERMon 09-03-2023 Histoplasma/Blastomy antonia Ag Result Detected Critically abnormal Not Detected [facility] Histoplasma/Blastomy antonia Ag Value 5.3 ng/mL [facility] Interpretation and review of laboratory results Abnormal [facility] IMMUNOPHENOTYPING, TISSUE/FL UIDon 09-03-2023 BKR DX CODE Use Ordering Normal [facility] Comment on above: Order Comment: Pleas e lab add on to specimen collected yesterdayIMMUNOPHENOTYPING DIAGNOSISPATIENT NAME: GEORGE SLATER: 1970MRN: [id number]#: [id number] BY: oYssi Perla M.D,, Ph.D. [id number] TYPE: Bronchial Alveolar LavageLABORATORY INTERPRETATION:There is no [...] The Flow Cytometry Laboratory at [facility]. It has notbeen cleared or approved by the FDA. This laboratory is certifiedunder the Clinical Laboratory Improvement Amendments (CLIA)as qualified to perform high complexity clinical laboratorytesting. This test is used for clinical purposes. It should notbe regarded as investigational or for research.The [facility] Flow Cytometry Laboratory lower limitof CLL MRD detection is 0.1% of the gated lymphocytes. Performed By: #### G IPP ####[facility] ([facility])[address] [place] [address] Flow Interpretation See Comment Normal [facility] Comment on above: Order Comment: Pleas e lab add on to specimen collected yesterdayIMMUNOPHENOTYPING DIAGNOSISPATIENT NAME: GEORGE SLATER: 1970MRN: [id number]#: [id number] BY: Yossi Perla M.D,, Ph.D. [id number] TYPE: Bronchial Alveolar LavageLABORATORY INTERPRETATION:There is no [...] The Flow Cytometry Laboratory at [facility]. It has notbeen cleared or approved by the FDA. This laboratory is certifiedunder the Clinical Laboratory Improvement Amendments (CLIA)as qualified to perform high complexity clinical laboratorytesting. This test is used for clinical purposes. It should notbe regarded as investigational or for research.The [facility] Flow Cytometry Laboratory lower limitof CLL MRD detection is 0.1% of the gated lymphocytes. Performed By: #### G IPP ####[facility] ([facility])[address] [place] [address] Flow Interpreted by: Yossi Perla MD, PhD [facility] Comment on above: Order Comment: Pleas e lab add on to specimen collected yesterdayIMMUNOPHENOTYPING DIAGNOSISPATIENT NAME: GEORGE SLATER: 1970MRN: [id number]#: [id number] BY: Yossi Perla M.D,, Ph.D. [id number] TYPE: Bronchial Alveolar LavageLABORATORY INTERPRETATION:There is no [...] The Flow Cytometry Laboratory at [facility]. It has notbeen cleared or approved by the FDA. This laboratory is certifiedunder the Clinical Laboratory Improvement Amendments (CLIA)as qualified to perform high complexity clinical laboratorytesting. This test is used for clinical purposes. It should notbe regarded as investigational or for research.The [facility] Flow Cytometry Laboratory lower limitof CLL MRD detection is 0.1% of the gated lymphocytes. Performed By: #### G IPP ####[facility] (DEFAULT)[address] [place] [address] MAGNESIUMon 09-03-2023 Magnesium [Mass/Vol] 1.6 mg/dL Normal 1.6-2.6 [facility] Comment on above: Performed By: #### M GO, CHM7, HFP ####[facility] (DEFAULT)[address] [place] [address] Interpretation and review of laboratory results Normal [facility] Magnesium [Mass/Vol] 1.6 mg/dL 1.6 - 2 .6 mg/dL [facility] No Panel Informationon 09-03 Interpretation and review of laboratory results Abnormal [facility] PARVOVIRUS (B19) DNA, PCR, B LOODon 09-03-2023 PARVOVIRUS B19 BY RAPID PCR Not detected Not Detected [facility] IN SPEC SOURCE Whole Blood [facility] Portable XR Chest Viewson RADIOLOGY RADIOLOGY [facility] Radiology Study observation (narrative) [facility] Portable XR Chest ViewsOrder ed By: [place] on 09-03-2023 [facility] Work Phone: XR CHEST PORTABLEon 09-03-20 23 XR CHEST PORTABLE Normal [facility] ACID FAST CULTUREon 09-02-20 Bacteria identified Cx Nom (Unsp spec) NO GROWTH DAY 42 OF 42 Normal [facility] Comment on above: Performed By: #### A FB ####[facility] (DEFAULT)[address] [place] [address] Fluorochrome Stain No acid Fast Bacillus Seen Normal [facility] Comment on above: Performed By: #### A FB ####[facility] (DEFAULT)[address] [place] [address] Bacteria identified Cx Nom (Unsp spec) NO GROWTH DAY 42 OF 42 Normal [facility] Comment on above: Order Comment: BAL A FB culture. Clinical suspicion for non-tuberculous mycobacteria Performed By: #### A FB ####[facility] (DEFAULT)[address] [place] [address] Fluorochrome Stain No acid Fast Bacillus Seen Normal [facility] Comment on above: Order Comment: BAL A FB culture. Clinical suspicion for non-tuberculous mycobacteria Performed By: #### A FB ####[facility] (DEFAULT)[address] [place] [address] ASPERGILLUS (GALACTOMANNAN), ANTIGENon 09-02-2023 Galactomannan Ag IA Qn <0.500 [facility] ASPERGILLUS ANTIGEN, BALon 1 Aspergillus Galactomannan Antigen, BAL <0.500 Normal <0.5 [facility] Comment on above: Result Comment: ---- ADDITIONAL INFORMATION This is a qualitative test and the resulted index value isnot indicative of disease severity. Serial testing isrecommended for patients at high risk for invasiveaspergillosis.This assay was performed using the FDA-cleared [employer] Aspergillus Galactomannan EIA.Test Performed by:[facility] [place] [id number] Director: Rosendo Bose M.D. Ph.D.; CLIA# [id number] Performed By: #### X ASGFL ####[facility] (DEFAULT)[address] [place] [address] Aspergillus Galactomannan Antigen, BAL <0.500 Normal <0.5 [facility] Comment on above: Order Comment: BAL a spirgillus antigen Result Comment: ---- ADDITIONAL INFORMATION This is a qualitative test and the resulted index value isnot indicative of disease severity. Serial testing isrecommended for patients at high risk for invasiveaspergillosis.This assay was performed using the FDA-cleared [employer] [place] Aspergillus Galactomannan EIA.Test Performed by:[address] [id number] Director: Rosendo Bose M.D. Ph.D.; CLIA# [id number] Performed By: #### X ASGFL ####[facility] (DEFAULT)[address] [place] [address] ATYPICAL BACTERIAL PNEUMONIA ,PCROrdered By: Shari Contreras on 09-02-2023 B. parapertussis DNA ESTELITA+probe Ql (Unsp spec) Not detected Not Detected [facility] B. pertussis DNA ESTELITA+probe Ql (Unsp spec) Not detected Not Detected [facility] C. pneumoniae DNA ESTELITA+probe Ql (Unsp spec) Not detected Not Detected [facility] Interpretation and review of laboratory results Normal [facility] M. pneumoniae DNA ESTELITA+probe Ql (Unsp spec) Not detected Not Detected [facility] ATYPICAL BACTERIAL PNEUMONIA ,PCRon 09-02-2023 Bordetella Parapertussis Not detected Normal Not Detected [facility] Comment on above: Order Comment: Viral [...] by The Clinical Microbiology Laboratory at [facility]. It has not been cleared or approved by the FDA. The laboratory is required under CLIA as qualified to perform high-complexity testing. This test is used for clinical purposes. It should not be regarded as investigational or for research. Performed By: #### A TYPNE ####[facility] (DEFAULT)[address] [address] Bordetella Pertussis Not detected Normal Not Detected [facility] Comment on above: Order Comment: Viral [...] by The Clinical Microbiology Laboratory at [facility]. It has not been cleared or approved by the FDA. The laboratory is required under CLIA as qualified to perform high-complexity testing. This test is used for clinical purposes. It should not be regarded as investigational or for research. Performed By: #### A TYPNE ####[facility] (DEFAULT)[address] [place] [address] Chlamydia Pneumoniae Not detected Normal Not Detected [facility] Comment on above: Order Comment: Viral [...] by The Clinical Microbiology Laboratory at [facility]. It has not been cleared or approved by the FDA. The laboratory is required under CLIA as qualified to perform high-complexity testing. This test is used for clinical purposes. It should not be regarded as investigational or for research. Performed By: #### A TYPNE ####[facility] (DEFAULT)[address] [place] [address] Mycoplasma Pneumoniae Not detected Normal Not Detected [facility] Comment on above: Order Comment: Viral [...] by The Clinical Microbiology Laboratory at [facility]. It has not been cleared or approved by the FDA. The laboratory is required under CLIA as qualified to perform high-complexity testing. This test is used for clinical purposes. It should not be regarded as investigational or for research. Performed By: #### A TYPNE ####[facility] (DEFAULT)[address] [place] [address] BAL CONSULTon 09-02-2023 ALVEOLAR MACROPHAGES 33 % Normal [facility] Comment on above: Order Comment: BAL c onsultIf > 15% lymphocytes - please send for flow. Performed By: #### B ALC ####[facility] (DEFAULT)[address] [place] [address] Bal comments Correlation with microbiology stains and cultures is recommended. Correlation with viral studies is recommended. Normal [facility] Comment on above: Order Comment: BAL c onsultIf > 15% lymphocytes - please send for flow. Performed By: #### B ALC ####[facility] (DEFAULT)[address] [place] [address] Bal Diff Quik Stain Quality Check Acceptable Normal [facility] Comment on above: Order Comment: BAL c onsultIf > 15% lymphocytes - please send for flow. Performed By: #### B ALC ####[facility] (DEFAULT)[address] [place] [address] Bal Reviewed By: Leonardo Peralta MD Normal [facility] Comment on above: Order Comment: BAL c onsultIf > 15% lymphocytes - please send for flow. Performed By: #### B ALC ####[facility] (DEFAULT)[address] [place] [address] BKR BAL INTERPRETATION Cellular specimen comprised of alveolar macrophages and small lymphocytes. No definitive microorganisms are observed. Rare degenerating cells with changes suggestive of viral cytopathic effect are noted. Moderate degenerative changes. Normal [facility] Comment on above: Order Comment: BAL c onsultIf > 15% lymphocytes - please send for flow. Performed By: #### B ALC ####[facility] (DEFAULT)[address] [place] [address] BKR DX CODE Use Ordering Normal [facility] Comment on above: Order Comment: BAL c onsultIf > 15% lymphocytes - please send for flow. Performed By: #### B ALC ####[facility] (DEFAULT)[address] [facility] [place] [place] [address] Eosinophils/100 WBC (Bld) 0 % Normal [facility] Comment on above: Order Comment: BAL c onsultIf > 15% lymphocytes - please send for flow. Performed By: #### B ALC ####[facility] (DEFAULT)[address] [facility] [place] [place] [address] Lymphocytes/100 WBC (Bld) 49 % Normal [facility] Comment on above: Order Comment: BAL c onsultIf > 15% lymphocytes - please send for flow. Performed By: #### B ALC ####[facility] (DEFAULT)[address] [facility] [place] [place] [address] Neutrophils/100 WBC (Bld) 18 % Normal [facility] Comment on above: Order Comment: BAL c onsultIf > 15% lymphocytes - please send for flow. Performed By: #### B ALC ####[facility] (DEFAULT)[address] [facility] [place] [place] [address] ALVEOLAR MACROPHAGES 32 % Normal [facility] Comment on above: Order Comment: BAL c onsult for cell differential and pathologist review. Please do flow cytometry if > 12% lymphocytes Performed By: #### B ALC ####[facility] (DEFAULT)[address] [facility] [place] [place] [address] Bal comments Correlation with microbiology stains and cultures is recommended. Normal [facility] Comment on above: Order Comment: BAL c onsult for cell differential and pathologist review. Please do flow cytometry if > 12% lymphocytes Performed By: #### B ALC ####[facility] (DEFAULT)[address] [facility] [place] [place] [address] Bal Diff Quik Stain Quality Check Acceptable Normal [facility] Comment on above: Order Comment: BAL c onsult for cell differential and pathologist review. Please do flow cytometry if > 12% lymphocytes Performed By: #### B ALC ####[facility] (DEFAULT)[address] [place] [address] Bal Reviewed By: Leonardo Peralta MD [facility] Comment on above: Order Comment: BAL c onsult for cell differential and pathologist review. Please do flow cytometry if > 12% lymphocytes Performed By: #### B ALC ####[facility] (DEFAULT)[address] [facility] [place] [address] BKR BAL INTERPRETATION Cellular specimen comprised of alveolar macrophages and small lymphocytes. No definitive microorganisms are observed. Moderate degenerative changes. Normal [facility] Comment on above: Order Comment: BAL c onsult for cell differential and pathologist review. Please do flow cytometry if > 12% lymphocytes Performed By: #### B ALC ####[facility] (DEFAULT)[address] [place] [address] BKR DX CODE Use Ordering Normal [facility] Comment on above: Order Comment: BAL c onsult for cell differential and pathologist review. Please do flow cytometry if > 12% lymphocytes Performed By: #### B ALC ####[facility] (DEFAULT)[address] [place] [address] Eosinophils/100 WBC (Bld) 0 % Normal [facility] Comment on above: Order Comment: BAL c onsult for cell differential and pathologist review. Please do flow cytometry if > 12% lymphocytes Performed By: #### B ALC ####[facility] (DEFAULT)[address] [place] [address] Lymphocytes/100 WBC (Bld) 57 % Normal [facility] Comment on above: Order Comment: BAL c onsult for cell differential and pathologist review. Please do flow cytometry if > 12% lymphocytes Performed By: #### B ALC ####[facility] (DEFAULT)[address] [facility] [place] [place] [address] Neutrophils/100 WBC (Bld) 11 % Normal [facility] Comment on above: Order Comment: BAL c onsult for cell differential and pathologist review. Please do flow cytometry if > 12% lymphocytes Performed By: #### B ALC ####[facility] (DEFAULT)[address] [facility] [place] [address] BRONCHOSCOPYon 09-02-2023 Radiology Study observation (narrative) [facility] Bacteria identified Cx Nom ( Bld)on 09-02-2023 Bacteria identified Cx Nom (Unsp spec) NO GROWTH DAY 5 OF 5 [facility] CBC,PLATELETSon 09-02-2023 Hematocrit (Bld) [Volume fraction] 39.9 % Normal 39.6-48.8 [facility] Comment on above: Performed By: #### H EMOGC ####[facility] (DEFAULT)[address] [place] [address] Hemoglobin (Bld) [Mass/Vol] 12.9 g/dL Low 13.4-16.8 [facility] Comment on above: Performed By: #### H EMOGC ####[facility] (DEFAULT)[address] [facility] [place] [address] MCV (RBC) [Entitic vol] 86.4 fL Normal 79.0-94.5 [facility] Comment on above: Performed By: #### H EMOGC ####[facility] (DEFAULT)[address] [facility] [place] [place] [address] Mean Cell Hgb 27.9 pg Normal 26.1-33.3 [facility] Comment on above: Performed By: #### H EMOGC ####[facility] (DEFAULT)[address] [place] [address] Mean Cell Hgb Conc 32.3 g/dL Normal 31.9-36.5 [facility] Comment on above: Performed By: #### H EMOGC ####[facility] (DEFAULT)[address] [place] [address] Platelet mean volume (Bld) [Entitic vol] 9.5 fL Normal 8.7-12.3 [facility] Comment on above: Performed By: #### H EMOGC ####[facility] (DEFAULT)[address] [place] [address] Platelets (Bld) [#/Vol] 210 10*3/uL Normal 146-337 [facility] Comment on above: Performed By: #### H EMOGC ####[facility] (DEFAULT)[address] [facility] [place] [place] [address] RBC (Bld) [#/Vol] 4.62 10*6/uL Normal 4.38-5.83 [facility] Comment on above: Performed By: #### H EMOGC ####[facility] (DEFAULT)[address] [place] [address] RBC Distribution 13.2 % Normal 10.9-14.3 [facility] Comment on above: Performed By: #### H EMOGC ####[facility] (DEFAULT)[address] [facility] [place] [address] WBC (Bld) [#/Vol] 4.12 10*3/uL Normal 3.73-10.10 [facility] Comment on above: Performed By: #### H EMOGC ####[facility] (DEFAULT)[address] [place] [address] Erythrocyte distribution width (RBC) [Ratio] 13.2 % 10.9 - 14.3 % [facility] Hematocrit (Bld) [Volume fraction] 39.9 % 39.6 - 48.8 % [facility] Hemoglobin (Bld) [Mass/Vol] 12.9 g/dL Low 13.4 - 16.8 g/dL [facility] Interpretation and review of laboratory results Abnormal [facility] MCH (RBC) [Entitic mass] 27.9 pg 26.1 - 33.3 pg [facility] MCHC (RBC) [Mass/Vol] 32.3 g/dL 31.9 - 36.5 g/dL [facility] MCV (RBC) [Entitic vol] 86.4 fL 79.0 - 94.5 fL [facility] Platelet mean volume (Bld) [Entitic vol] 9.5 fL 8.7 - 12.3 fL [facility] Platelets (Bld) [#/Vol] 210 10*3/uL 146 - 337 K/uL [facility] RBC (Bld) [#/Vol] 4.62 10*6/uL [facility] WBC (Bld) [#/Vol] 4.12 10*3/uL 3.73 - 10. 10 K/uL [facility] CHEM 7 (LYTES,BUN,CREA,GLUC) on 09-02-2023 Anion gap [Moles/Vol] 13 mmol/L Normal 7-17 [facility] Comment on above: Performed By: #### H DOMENICA MONCADA CHM7 ####[facility] (DEFAULT)[address] [place] [address] Chloride [Moles/Vol] 105 mmol/L Normal 98-108 [facility] Comment on above: Performed By: #### H DOMENICA MONCADA CHM7 ####[facility] (DEFAULT)[address] [place] [address] CO2 [Moles/Vol] 22 mmol/L Normal 21-31 [facility] Comment on above: Performed By: #### H DOMENICA MONCADA CHM7 ####[facility] (DEFAULT)[address] [facility] [place] [place] [address] Creatinine [Mass/Vol] 1.25 mg/dL Normal 0.70-1.30 [facility] Comment on above: Performed By: #### H ANTWAN MGO CHM7 ####[facility] (DEFAULT)[address] [place] [address] GFR/1.73 sq M.predicted among non-blacks MDRD (S/P/Bld) [Vol rate/Area] 69 mL/min/{1.73_m2} Normal >=60 [facility] Comment on above: Result Comment: Repo rted eGFR is based on the CKD-EPI 2020 equation using creatinine, age, and sex. Performed By: #### H DOMENICA MONCADA CHM7 ####[facility] (DEFAULT)[address] [place] [address], [place] [address] Glucose [Mass/Vol] 105 mg/dL High 70-99 [facility] Comment on above: Performed By: #### H ANTWAN MGO CHM7 ####[facility] (DEFAULT)[address] [place] [address], [place] [address] Osmolality [Osmolality] 287 mosm/kg Normal 278-305 [facility] Comment on above: Performed By: #### H ANTWAN MGOHELENM7 ####[facility] (DEFAULT)[address] [place] [address], [place] [address] Potassium [Moles/Vol] 4.3 mmol/L Normal 3.5-5.0 [facility] Comment on above: Performed By: #### H FP MGO CHM7 ####[facility] (DEFAULT)[address] [facility] [place] [place] [address] Sodium [Moles/Vol] 136 mmol/L Normal 135-145 [facility] Comment on above: Performed By: #### H FP MGO CHM7 ####[facility] (DEFAULT)[address] [place] [address] Urea nitrogen [Mass/Vol] 16 mg/dL Normal 7-25 [facility] Comment on above: Performed By: #### H DOMENICA MONCADA CHM7 ####[facility] (DEFAULT)[address] [place] [address] Urea nitrogen/Creatinine [Mass ratio] 13 mg/mg Normal [facility] Comment on above: Performed By: #### H DOMENICA MONCADA CHM7 ####[facility] (DEFAULT)[address] [place] [address] Anion gap [Moles/Vol] 13 mmol/L 7 - 17 mmol/L [facility] Chloride [Moles/Vol] 105 mmol/L 98 - 10 8 mmol/L [facility] CO2 [Moles/Vol] 22 mmol/L 21 - 31 mmol/L [facility] Creatinine [Mass/Vol] 1.25 mg/dL 0.70 - 1.30 mg/dL [facility] eGFR, CKD-EPI, Male 69 - PINF [facility] Glucose [Mass/Vol] 105 mg/dL High 70 - 99 mg/dL [facility] Osmolality Calc [Osmolality] [address] [facility] Potassium [Moles/Vol] 4.3 mmol/L 3.5 - 5.0 mmol/L [facility] Sodium [Moles/Vol] 136 mmol/L 135 - 145 mmol/L [facility] Urea nitrogen [Mass/Vol] 16 mg/dL 7 - 25 mg/dL [facility] Urea nitrogen/Creatinine [Mass ratio] 13 mg/mg [facility] CMV PCR,FLUIDS,URINE,EYE ETC on 09-02-2023 CMV by PCR Result Negative Normal Negative [facility] Comment on above: Result Comment: ---- ADDITIONAL INFORMATION This test was developed and its performance characteristicsdetermined by [facility] in a manner consistent with CLIArequirements. This test has not been cleared or approved bythe U.S. Food and Drug Administration.Test Performed by:[address] [address]Kzl Director: Rosendo Bose M.D. Ph.D.; CLIA# [id number] Performed By: #### Y CMV ####[facility] (DEFAULT)[address] [place] [address] CMV BY PCR SOURCE BAL RML Normal [facility] Comment on above: Performed By: #### Y CMV ####[facility] (DEFAULT)[address] [place] [address] CMV by PCR Result Negative Normal Negative [facility] Comment on above: Result Comment: ---- ADDITIONAL INFORMATION This test was developed and its performance characteristicsdetermined by [facility] in a manner consistent with CLIArequirements. This test has not been cleared or approved bythe U.S. Food and Drug Administration.Test Performed by:[address] [address]Alp Director: Rosendo Bose M.D. Ph.D.; CLIA# [id number] Performed By: #### Y CMV ####[facility] (DEFAULT)[address] [place] [address] CMV BY PCR SOURCE BAL LLL Normal [facility] Comment on above: Performed By: #### Y CMV ####[facility] (DEFAULT)[address] [place] [address] CYTOLOGY, NON-GYNon 09-02-20 CYTOLOGIC DIAGNOSIS [facility] Comment on above: Result Comment: A. B RONCHOALVEOLAR LAVAGE, LEFT LOWER LOBE (CYTOLOGY):FINAL DIAGNOSIS:No Malignant Cells Are IdentifiedHypocellular Specimen Performed By: #### N ONGNNONFNA ####[facility] (DEFAULT)[address] [place] [address] Case Report Normal [facility] Comment on above: Result Comment: Medi abhishek Cytology Report Case: [id number] Provider: Crow Diaz MD Collected: 09/02/2023 08:38 AMOrdering Location: 0 Received: 09/02/2023 10:44 AMPathologist: KENTON Caglepecimen: BRONCHOALVEOLAR LAVAGE, LLL BAL Performed By: #### N ONGNGRAEMEFNA ####[facility] (DEFAULT)[address] [place] [address] Clinical History Renal transplant. Normal [facility] Comment on above: Performed By: #### N ONJOHNNA ####[facility] (DEFAULT)[address] [place] [address] Gross Description Normal [facility] Comment on above: Result Comment: LLL BAL1 ml hazy colorless fld unfixed1 TP slide Pap stainFor Immediate Release to Patient's MyChart? Yes Performed By: #### N ONGNNONFNA ####[facility] (DEFAULT)[address] [place] [address], [place] [address] FUNGUS CULTUREon 09-02-2023 Bacteria identified Cx Nom (Unsp spec) Normal [facility] Comment on above: Order Comment: Ident ification was performed on the MALDI-TOF mass spectrometer [employer]. This test was developed by [facility]. It has not been cleared or approved by the FDA. The laboratory is regulated under CLIA as qualified to perform high-complexity testing. This test is used for clinical purposes. It should not be regarded as investigational or for research. Result Comment: Grow [id number] Divernon Histoplasma capsulatum Performed By: #### F UN ####[facility] (DEFAULT)[address] [place] [address] Bacteria identified Cx Nom (Unsp spec) NO GROWTH DAY 28 OF 28 Normal [facility] Comment on above: Order Comment: BAL f ungal culture Performed By: #### F UN ####[facility] (DEFAULT)[address] [place] [address] HEPATIC FUNCTION PANELon Albumin [Mass/Vol] 3.2 g/dL Low 3.5-5.0 [facility] Comment on above: Performed By: #### H FP, MGO, CHM7 ####[facility] (DEFAULT)[address] [place] [address] ALP [Catalytic activity/Vol] 107 U/L Normal 32-126 [facility] Comment on above: Performed By: #### H FP, MGO, CHM7 ####[facility] (DEFAULT)[address] [place] [address] ALT [Catalytic activity/Vol] 20 U/L Normal 10-52 [facility] Comment on above: Performed By: #### H FP, MGO, CHM7 ####[facility] (DEFAULT)[address] [place] [address] AST [Catalytic activity/Vol] 31 U/L Normal 10-39 [facility] Comment on above: Performed By: #### H FP, MGO, CHM7 ####[facility] (DEFAULT)[address] [place] [address] Bilirubin [Mass/Vol] 1.0 mg/dL Normal <1.5 [facility] Comment on above: Performed By: #### H FP, MGO, CHM7 ####[facility] (DEFAULT)[address] [place] [address] Bilirubin.indirect [Mass/Vol] 0.3 mg/dL High <0.3 [facility] Comment on above: Performed By: #### H FP, MGO, CHM7 ####[facility] (DEFAULT)[address] [place] [address] Protein [Mass/Vol] 6.6 g/dL Normal 6.4-8.3 [facility] Comment on above: Performed By: #### H FP, MGO, CHM7 ####[facility] (DEFAULT)[address] [place] [address] Albumin [Mass/Vol] 3.2 g/dL Low 3.5 - 5.0 g/dL [facility] ALP [Catalytic activity/Vol] 107 U/L 32 - 126 U/L [facility] ALT [Catalytic activity/Vol] 20 U/L 10 - 52 U/L [facility] AST [Catalytic activity/Vol] 31 U/L 10 - 39 U/L [facility] Bilirubin [Mass/Vol] 1.0 mg/dL NINF - 1.5 mg/dL [facility] Bilirubin.direct [Mass/Vol] 0.3 mg/dL High NINF - 0.3 mg/dL [facility] Protein [Mass/Vol] 6.6 g/dL 6.4 - 8.3 g/dL [facility] HISTOPLASMA ANTIGEN, FLUIDon 09-02-2023 FH SOURCE BAL RML Normal [facility] Comment on above: Performed By: #### Y FHST ####[facility] (DEFAULT)[address] [place] [address] Histo FLD interpretation Negative Normal [facility] Comment on above: Result Comment: ---- ADDITIONAL INFORMATION Reference interval: None DetectedReportable Range: Positive Results reported in ng/mL from0.20 ng/mL to 20.00 ng/mLPositive Results above 20.00 ng/mL are reported as 'Abovethe Limit of Quantification'Cross-reactions occur with Blastomyces spp., Coccidioidesspp., and Paracoccidioides brasiliensis.This test was developed and its performance characteristicsdetermined by [employer] [employer]. It has not beencleared or approved by the FDA; however, FDA clearance orapproval is not currently required for clinical use. Theresults are not intended to be used as the sole means forclinical diagnosis or patient management decisions.Test Performed by:[facility] [place] [address] Performed By: #### Y FHST ####[facility] (DEFAULT)[address] [place] [address] Histoplasma Antigen, FLUID Not detected Normal [facility] Comment on above: Performed By: #### Y FHST ####[facility] (DEFAULT)[address] [place] [address] HISTOPLASMA ANTIGEN,URINEon 09-02-2023 H. capsulatum Ag (U) [Mass/Vol] Not detected ng/mL [facility] H. capsulatum Ag IA Ql (U) Not detected Not Detected [facility] HISTOPLASMA CAPSULATUM/BLAST OMYCES SPECIES,PCR FLUIDon 09-02-2023 HISTO/BLASTO RESULT Negative Normal Not Applicable [facility] Comment on above: Result Comment: A Ne gative result from BAL fluid does not rule out thepresence of Histoplasma capsulatum because the sensitivity from this source is suboptimal. ADDITIONAL INFORMATION This test was developed and its performance characteristicsdetermined by [facility] in a manner consistent with CLIArequirements. This test has not been cleared or approved bythe U.S. Food and Drug Administration.Test Performed by:[address] Director: Rosendo Bose M.D. Ph.D.; CLIA# [id number] Performed By: #### Y HBRP ####[facility] (DEFAULT)[address] [place] [address] Source BAL RML Normal [facility] Comment on above: Performed By: #### Y HBRP ####[facility] (DEFAULT)[address] [place] [address] HIV 1 AND 2 ANTIBODIES/P24 A NTIGENOrdered By: Wilma Luque on 09-02-2023 HIV 1+2 Ab+HIV1 p24 Ag IA Ql Non-Reactive Non Reactive [facility] Interpretation and review of laboratory results Normal [facility] HIV 1 AND 2 ANTIBODIES/P24 A NTIGENon 09-02-2023 HIV-1/HIV-2 Ab With p24 Antigen Non-Reactive Normal Non Reactive [facility] Comment on above: Performed By: #### L [id number] ####[facility] (DEFAULT)[address] [place] [address] LEGIONELLA CULTUREon 023 Bacteria identified Cx Nom (Unsp spec) NO GROWTH DAY 7 OF 7 Normal [facility] Comment on above: Performed By: #### L EGN ####[facility] (DEFAULT)[address] [place] [address] Bacteria identified Cx Nom (Unsp spec) NO GROWTH DAY 7 OF 7 Normal [facility] Comment on above: Order Comment: BAL l egionella culture Performed By: #### L EGN ####[facility] (DEFAULT)[address] [facility] [place] [place] [address] LEGIONELLA PCRon 09-02-2023 Legionella species, Culture BAL RML Normal [facility] Comment on above: Performed By: #### Y LEGRP ####[facility] (DEFAULT)[address] [place] [address] Legionella, pcr result Negative Normal Not Applicable [facility] Comment on above: Result Comment: ---- ADDITIONAL INFORMATION This test was developed and its performance characteristicsdetermined by [facility] in a manner consistent with CLIArequirements. This test has not been cleared or approved bythe U.S. Food and Drug Administration.Test Performed by:[address] [address]Bqm Director: Rosendo Bose M.D. Ph.D.; CLIA# [id number] Performed By: #### Y LEGRP ####[facility] (DEFAULT)[address] [place] [address] LOWER RESPIRATORY CULTURE, B ACTERIALon 09-02-2023 Bacteria identified Cx Nom (Unsp spec) NO GROWTH DAY 2 OF 2 Normal [facility] Comment on above: Performed By: #### R ES ####[facility] (DEFAULT)[address] [place] [address] Microscopic observation Gram stain Nom (Unsp spec) Normal [facility] Comment on above: Result Comment: Cyto centrifuge preparationNeutrophils, RareRed Blood Cells PresentNo organisms seen Performed By: #### R ES ####[facility] (DEFAULT)[address] [place] [address] Bacteria identified Cx Nom (Unsp spec) NO GROWTH DAY 2 OF 2 Normal [facility] Comment on above: Order Comment: BAL b acterial respiratory culture Performed By: #### R ES ####[facility] (DEFAULT)[address] [place] [address] Microscopic observation Gram stain Nom (Unsp spec) Normal [facility] Comment on above: Order Comment: BAL b acterial respiratory culture Result Comment: Cyto centrifuge preparationNeutrophils, ModerateRed Blood Cells PresentNo organisms seen Performed By: #### R ES ####[facility] (DEFAULT)[address] [place] [address] MAGNESIUMon 09-02-2023 Magnesium [Mass/Vol] 1.7 mg/dL Normal 1.6-2.6 [facility] Comment on above: Performed By: #### H FP, MGO, CHM7 ####[facility] (DEFAULT)[address] [place] [address] Interpretation and review of laboratory results Normal [facility] Magnesium [Mass/Vol] 1.7 mg/dL 1.6 - 2 .6 mg/dL [facility] No Panel Informationon 09-02 Interpretation and review of laboratory results Abnormal [facility] PNEUMOCYSTIS JIROVECI,PCRon 09-02-2023 PN Report Status DNR Normal [facility] Comment on above: Performed By: #### Y PNRP ####[facility] (DEFAULT)[address] [place] [address] PN Specimen Source BAL RML Normal [facility] Comment on above: Performed By: #### Y PNRP ####[facility] (DEFAULT)[address] [place] [address] Pneum jiroveci comment DNR Normal [facility] Comment on above: Performed By: #### Y PNRP ####[facility] (DEFAULT)[address] [place] [address] Pneumocystis jiroveci,PCR result Negative Normal Not Applicable [facility] Comment on above: Result Comment: ---- ADDITIONAL INFORMATION This test was developed and its performance characteristicsdetermined by [facility] in a manner consistent with CLIArequirements. This test has not been cleared or approved bythe U.S. Food and Drug Administration.Test Performed by:[facility] [address] [address]Ctg Director: Rosendo Bose M.D. Ph.D.; CLIA# [id number] Performed By: #### Y PNRP ####[facility] (DEFAULT)[address] [place] [address] PN Report Status DNR Normal [facility] Comment on above: Performed By: #### Y PNRP ####[facility] (DEFAULT)[address] [place] [address] PN Specimen Source BAL LLL Normal [facility] Comment on above: Performed By: #### Y PNRP ####[facility] (DEFAULT)[address] [place] [address] Pneum jiroveci comment DNR Normal [facility] Comment on above: Performed By: #### Y PNRP ####[facility] (DEFAULT)[address] [place] [address] Pneumocystis jiroveci,PCR result Negative Normal Not Applicable [facility] Comment on above: Result Comment: ---- ADDITIONAL INFORMATION This test was developed and its performance characteristicsdetermined by [facility] in a manner consistent with CLIArequirements. This test has not been cleared or approved bythe U.S. Food and Drug Administration.Test Performed by:[address] Director: Rosendo Bose M.D. Ph.D.; CLIA# [id number] Performed By: #### Y PNRP ####[facility] (DEFAULT)[address] [place] [address] TACROLIMUS LEVEL, TROUGH (IN E DRUG LEVEL)on 09-02-2023 Interpretation and review of laboratory results Normal [facility] Tacrolimus (Bld) [Mass/Vol] 4.2 ng/mL [facility] Tacrolimus, Trough 4.2 ng/mL Normal Bone Susana ow Transplant: 4.0-12.0, Therapeutic: 5.0-15.0 [facility] Comment on above: Order Comment: Pleas e draw at specified interval PRIOR to dose. Do not hold dose to wait for level. Specimens batched twice per day, (M-F) and once per day weekendsMethod performed is a chemiluminescent microparticle immunoasssay on the [employer] Information [employer] Analyst i2000.The range is based on experience at [facility] and users should be aware that target concentrations vary widely depending on concomitant therapy, time post-transplant, and desired degree of immunosuppression. Performed By: #### T ACRO ####[facility] (DEFAULT)[address] [place] [address] CBC,PLATELETSon 09-01-2023 Hematocrit (Bld) [Volume fraction] 38.9 % Low 39.6-48.8 [facility] Comment on above: Performed By: #### H EMOGC ####[facility] (DEFAULT)[address] [facility] [place] [place] [address] Hemoglobin (Bld) [Mass/Vol] 12.7 g/dL Low 13.4-16.8 [facility] Comment on above: Performed By: #### H EMOGC ####[facility] (DEFAULT)[address] [place] [place] [address] MCV (RBC) [Entitic vol] 84.6 fL Normal 79.0-94.5 [facility] Comment on above: Performed By: #### H EMOGC ####[facility] (DEFAULT)[address] [place] [address] Mean Cell Hgb 27.6 pg Normal 26.1-33.3 [facility] Comment on above: Performed By: #### H EMOGC ####[facility] (DEFAULT)[address] [facility] [place] [place] [address] Mean Cell Hgb Conc 32.6 g/dL Normal 31.9-36.5 [facility] Comment on above: Performed By: #### H EMOGC ####[facility] (DEFAULT)[address] [place] [address] Platelet mean volume (Bld) [Entitic vol] 9.4 fL Normal 8.7-12.3 [facility] Comment on above: Performed By: #### H EMOGC ####[facility] (DEFAULT)[address] [place] [address] Platelets (Bld) [#/Vol] 209 10*3/uL Normal 146-337 [facility] Comment on above: Performed By: #### H EMO ####[facility] (DEFAULT)[address] [place] [address] RBC (Bld) [#/Vol] 4.60 10*6/uL Normal 4.38-5.83 [facility] Comment on above: Performed By: #### H EMO ####[facility] (DEFAULT)[address] [place] [address] RBC Distribution 13.4 % Normal 10.9-14.3 [facility] Comment on above: Performed By: #### H EMO ####[facility] (DEFAULT)[address] [place] [address] WBC (Bld) [#/Vol] 4.41 10*3/uL Normal 3.73-10.10 [facility] Comment on above: Performed By: #### [facility] ####[facility] (DEFAULT)[address] [place] [address] Erythrocyte distribution width (RBC) [Ratio] 13.4 % 10.9 - 14.3 % [facility] Hematocrit (Bld) [Volume fraction] 38.9 % Low 39.6 - 48.8 % [facility] Hemoglobin (Bld) [Mass/Vol] 12.7 g/dL Low 13.4 - 16.8 g/dL [facility] Interpretation and review of laboratory results Abnormal [facility] MCH (RBC) [Entitic mass] 27.6 pg 26.1 - 33.3 pg [facility] MCHC (RBC) [Mass/Vol] 32.6 g/dL 31.9 - 36.5 g/dL [facility] MCV (RBC) [Entitic vol] 84.6 fL 79.0 - 94.5 fL [facility] Platelet mean volume (Bld) [Entitic vol] 9.4 fL 8.7 - 12.3 fL [facility] Platelets (Bld) [#/Vol] 209 10*3/uL 146 - 337 K/uL [facility] RBC (Bld) [#/Vol] 4.60 10*6/uL [facility] WBC (Bld) [#/Vol] 4.41 10*3/uL 3.73 - 10. 10 K/uL [facility] CHEM 7 (LYTES,BUN,CREA,GLUC) on 09-01-2023 Anion gap [Moles/Vol] 14 mmol/L Normal 7-17 [facility] Comment on above: Performed By: #### H FP MGO, CHM7 ####[facility] (DEFAULT)[address] [place] [address] Chloride [Moles/Vol] 103 mmol/L Normal 98-108 [facility] Comment on above: Performed By: #### H FP, MGO, CHM7 ####[facility] (DEFAULT)[address] [place] [address] CO2 [Moles/Vol] 21 mmol/L Normal 21-31 [facility] Comment on above: Performed By: #### H FP, MGO, CHM7 ####[facility] (DEFAULT)[address] [place] [address] Creatinine [Mass/Vol] 1.16 mg/dL Normal 0.70-1.30 [facility] Comment on above: Performed By: #### H FP, MGO, CHM7 ####[facility] (DEFAULT)[address] [place] [address] GFR/1.73 sq M.predicted among non-blacks MDRD (S/P/Bld) [Vol rate/Area] 76 mL/min/{1.73_m2} Normal >=60 [facility] Comment on above: Result Comment: Repo rted eGFR is based on the CKD-EPI 2020 equation using creatinine, age, and sex. Performed By: #### H ANTWAN MGRogelio CHM7 ####[facility] (DEFAULT)[address] [place] [address] Glucose [Mass/Vol] 117 mg/dL High 70-99 [facility] Comment on above: Performed By: #### H ANTWAN MGO CHM7 ####[facility] (DEFAULT)[address] [place] [address] Osmolality [Osmolality] 285 mosm/kg Normal 278-305 [facility] Comment on above: Performed By: #### H ANTWAN MGRogelio CHM7 ####[facility] (DEFAULT)[address] [place] [address] Potassium [Moles/Vol] 4.2 mmol/L Normal 3.5-5.0 [facility] Comment on above: Performed By: #### H ANTWAN MGO CHM7 ####[facility] (DEFAULT)[address] [place] [address] Sodium [Moles/Vol] 134 mmol/L Low 135-145 [facility] Comment on above: Performed By: #### H ANTWAN MGO CHM7 ####[facility] (DEFAULT)[address] [place] [address] Urea nitrogen [Mass/Vol] 18 mg/dL Normal 7-25 [facility] Comment on above: Performed By: #### H ANTWAN MGO CHM7 ####[facility] (DEFAULT)[address] [place] [address] Urea nitrogen/Creatinine [Mass ratio] 16 mg/mg Normal [facility] Comment on above: Performed By: #### H ANTWAN MGO CHM7 ####[facility] (DEFAULT)[address] [place] [address] Anion gap [Moles/Vol] 14 mmol/L 7 - 17 mmol/L [facility] Chloride [Moles/Vol] 103 mmol/L 98 - 10 8 mmol/L [facility] CO2 [Moles/Vol] 21 mmol/L 21 - 31 mmol/L [facility] Creatinine [Mass/Vol] 1.16 mg/dL 0.70 - 1.30 mg/dL [facility] eGFR, CKD-EPI, Male 76 - PINF [facility] Glucose [Mass/Vol] 117 mg/dL High 70 - 99 mg/dL [facility] Osmolality Calc [Osmolality] [address] [facility] Potassium [Moles/Vol] 4.2 mmol/L 3.5 - 5.0 mmol/L [facility] Sodium [Moles/Vol] 134 mmol/L Low 135 - 145 mmol/L [facility] Urea nitrogen [Mass/Vol] 18 mg/dL 7 - 25 mg/dL [facility] Urea nitrogen/Creatinine [Mass ratio] 16 mg/mg [facility] CRYPTOCOCCAL ANTIGENon 09-01 Cryptococcus Antigen,Serum Negative Normal Negative [facility] Comment on above: Performed By: #### C RAG ####[facility] (DEFAULT)[address] [place] [address] Cryptococcus sp Ag Ql (S) Negative Negative [facility] Interpretation and review of laboratory results Normal [facility] HEPATIC FUNCTION PANELon Albumin [Mass/Vol] 3.3 g/dL Low 3.5-5.0 [facility] Comment on above: Performed By: #### H FP, MGO, CHM7 ####[facility] (DEFAULT)[address] [place] [address] ALP [Catalytic activity/Vol] 112 U/L Normal 32-126 [facility] Comment on above: Performed By: #### H FP, MGO, CHM7 ####[facility] (DEFAULT)[address] [place] [address] ALT [Catalytic activity/Vol] 21 U/L Normal 10-52 [facility] Comment on above: Performed By: #### H DOMENICA MONCADA CHM7 ####[facility] (DEFAULT)[address] [place] [address] AST [Catalytic activity/Vol] 29 U/L Normal 10-39 [facility] Comment on above: Performed By: #### Lydia MONCADA MGRogelio CHM7 ####[facility] (DEFAULT)[address] [place] [address] Bilirubin [Mass/Vol] 1.0 mg/dL Normal <1.5 [facility] Comment on above: Performed By: #### H DOMENICA MONCADA CHM7 ####[facility] (DEFAULT)[address] [place] [address] Bilirubin.indirect [Mass/Vol] 0.2 mg/dL Normal <0.3 [facility] Comment on above: Performed By: #### DOMENICA MCKINNON CHM7 ####[facility] (DEFAULT)[address] [place] [address] Protein [Mass/Vol] 6.8 g/dL Normal 6.4-8.3 [facility] Comment on above: Performed By: #### H ANTWAN MGRogelio, CHM7 ####[facility] (DEFAULT)[address] [place] [address] Albumin [Mass/Vol] 3.3 g/dL Low 3.5 - 5.0 g/dL [facility] ALP [Catalytic activity/Vol] 112 U/L 32 - 126 U/L [facility] ALT [Catalytic activity/Vol] 21 U/L 10 - 52 U/L [facility] AST [Catalytic activity/Vol] 29 U/L 10 - 39 U/L [facility] Bilirubin [Mass/Vol] 1.0 mg/dL NINF - 1.5 mg/[facility] Bilirubin.direct [Mass/Vol] 0.2 mg/dL NINF - 0.3 mg/dL [facility] Protein [Mass/Vol] 6.8 g/dL 6.4 - 8.3 g/dL [facility] L. pneumophila 1 Ag IA Ql (U )Ordered By: Carolin Miles on 09-01-2023 Interpretation and review of laboratory results Normal [facility] LEGIONELLA URINARY AGOrdered By: Carolin iMles on 09-01-2023 L. pneumophila 1 Ag IA Ql (U) Negative Negative [facility] MAGNESIUMon 09-01-2023 Magnesium [Mass/Vol] 1.6 mg/dL Normal 1.6-2.6 [facility] Comment on above: Performed By: #### H ANTWAN, MGO, CHM7 ####[facility] (DEFAULT)[address] [place] [address] Interpretation and review of laboratory results Normal [facility] Magnesium [Mass/Vol] 1.6 mg/dL 1.6 - 2 .6 mg/dL [facility] No Panel Informationon 09-01 Interpretation and review of laboratory results Abnormal [facility] PARVOVIRUS (B19) DNA, PCR, B LOODon 09-01-2023 PARVOVIRUS B19 BY RAPID PCR Not detected Normal Not Detected [facility] Comment on above: Result Comment: The primers/probe used in this assay will detectparvovirus B19 and V9 (genotypes 1 # 3) but maynot detect parvovirus genotype 2. The majority ofcirculating Parvovirus B19 strains in the [facility] are genotype 1. Genotype 2 is not believed tocirculate widely in the [facility], but has beenassociated with similar clinical features as genotype1. Genotype 3 is most prevalent in some [place] [facility] [place].This test was developed and its analyticalperformance characteristics have been determinedby [place].It has not been cleared or approved by the FDA. Thisassay has been validated pursuant to the CLIAregulations and is used for clinical purposes.Test Performed at:[facility] [place] [id number] Benavides M.D., Ph.D.,Director of Laboratories Performed By: #### Y PRVP ####[facility] (DEFAULT)[address] [place] [address] IN SPEC SOURCE Whole Blood Normal [facility] Comment on above: Performed By: #### Y PRVP ####[facility] (DEFAULT)[address] [place] [address] ASPERGILLUS (GALACTOMANNAN), ANTIGENon 08-31-2023 Aspergillus Antigen <0.500 Normal <0.5 [facility] Comment on above: Result Comment: ---- ADDITIONAL INFORMATION This is a qualitative test and the resulted index value isnot indicative of disease severity. Serial testing isrecommended for patients at high risk for invasiveaspergillosis.This assay was performed using the FDA-cleared [employer] [place] Aspergillus Galactomannan EIA.Test Performed by:[address] Director: Rosendo Bose M.D. Ph.D.; CLIA# [id number] Performed By: #### Y ASPR ####[facility] (DEFAULT)[address] [place] [address] CBC,PLATELETSon 08-31-2023 Hematocrit (Bld) [Volume fraction] 39.4 % Low 39.6-48.8 [facility] Comment on above: Performed By: #### [facility] [place] ####[facility] (DEFAULT)[address] [place] [address] Hemoglobin (Bld) [Mass/Vol] 12.8 g/dL Low 13.4-16.8 [facility] Comment on above: Performed By: #### H EMO ####[facility] (DEFAULT)[address] [place] [address] MCV (RBC) [Entitic vol] 85.1 fL Normal 79.0-94.5 [facility] Comment on above: Performed By: #### H EMOGC ####[facility] (DEFAULT)[address] [place] [address] Mean Cell Hgb 27.6 pg Normal 26.1-33.3 [facility] Comment on above: Performed By: #### H EMOGC ####[facility] (DEFAULT)[address] [place] [address] Mean Cell Hgb Conc 32.5 g/dL Normal 31.9-36.5 [facility] Comment on above: Performed By: #### H EMOGC ####[facility] (DEFAULT)[address] [place] [address] Platelet mean volume (Bld) [Entitic vol] 9.6 fL Normal 8.7-12.3 [facility] Comment on above: Performed By: #### H EMOGC ####[facility] (DEFAULT)[address] [facility] [place] [place] [address] Platelets (Bld) [#/Vol] 228 10*3/uL Normal 146-337 [facility] Comment on above: Performed By: #### H EMOGC ####[facility] (DEFAULT)[address] [place] [address] RBC (Bld) [#/Vol] 4.63 10*6/uL Normal 4.38-5.83 [facility] Comment on above: Performed By: #### H EMOGC ####[facility] (DEFAULT)[address] [place] [place] [address] RBC Distribution 13.3 % Normal 10.9-14.3 [facility] Comment on above: Performed By: #### H EMOGC ####[facility] (DEFAULT)[address] [place] [place] [address] WBC (Bld) [#/Vol] 4.77 10*3/uL Normal 3.73-10.10 [facility] Comment on above: Performed By: #### H [facility] ####[facility] (DEFAULT)[address] [place] [address] Erythrocyte distribution width (RBC) [Ratio] 13.3 % 10.9 - 14.3 % [facility] Hematocrit (Bld) [Volume fraction] 39.4 % Low 39.6 - 48.8 % [facility] Hemoglobin (Bld) [Mass/Vol] 12.8 g/dL Low 13.4 - 16.8 g/dL [facility] Interpretation and review of laboratory results Abnormal [facility] MCH (RBC) [Entitic mass] 27.6 pg 26.1 - 33.3 pg [facility] MCHC (RBC) [Mass/Vol] 32.5 g/dL 31.9 - 36.5 g/dL [facility] MCV (RBC) [Entitic vol] 85.1 fL 79.0 - 94.5 fL [facility] Platelet mean volume (Bld) [Entitic vol] 9.6 fL 8.7 - 12.3 fL [facility] Platelets (Bld) [#/Vol] 228 10*3/uL 146 - 337 K/uL [facility] RBC (Bld) [#/Vol] 4.63 10*6/uL [facility] WBC (Bld) [#/Vol] 4.77 10*3/uL 3.73 - 10. 10 K/uL [facility] CHEM 7 (LYTES,BUN,CREA,GLUC) on 08-31-2023 Anion gap [Moles/Vol] 13 mmol/L Normal 7-17 [facility] Comment on above: Performed By: #### M GO, HFP, CHM7, FERIB, PROCAL ####[facility] (DEFAULT)[address] [place] [address] Chloride [Moles/Vol] 102 mmol/L Normal 98-108 [facility] Comment on above: Performed By: #### M GO, HFP, CHM7, FERIB, PROCAL ####[facility] (DEFAULT)[address] [place] [address] CO2 [Moles/Vol] 23 mmol/L Normal 21-31 [facility] Comment on above: Performed By: #### M GO, HFP, CHM7, FERIB, PROCAL ####[facility] (DEFAULT)[address] [place] [address] Creatinine [Mass/Vol] 1.37 mg/dL High 0.70-1.30 [facility] Comment on above: Performed By: #### M GO, HFP, CHM7, FERIB, PROCAL ####[facility] (DEFAULT)[address] [place] [address] GFR/1.73 sq M.predicted among non-blacks MDRD (S/P/Bld) [Vol rate/Area] 62 mL/min/{1.73_m2} Normal >=60 [facility] Comment on above: Result Comment: Repo rted eGFR is based on the CKD-EPI 2020 equation using creatinine, age, and sex. Performed By: #### M GO, HFP, CHM7, FERIB, PROCAL ####[facility] (DEFAULT)[address] [place] [address] Glucose [Mass/Vol] 112 mg/dL High 70-99 [facility] Comment on above: Performed By: #### M GO, HFP, CHM7, FERIB, PROCAL ####[facility] (DEFAULT)[address] [place] [address] Osmolality [Osmolality] 284 mosm/kg Normal 278-305 [facility] Comment on above: Performed By: #### M GO, HFP, CHM7, FERIB, PROCAL ####[facility] (DEFAULT)[address] [place] [address] Potassium [Moles/Vol] 4.4 mmol/L Normal 3.5-5.0 [facility] Comment on above: Performed By: #### M GO, HFP, CHM7, FERIB, PROCAL ####[facility] (DEFAULT)[address] [place] [address] Sodium [Moles/Vol] 134 mmol/L Low 135-145 [facility] Comment on above: Performed By: #### M GO, HFP, CHM7, FERIB, PROCAL ####[facility] (DEFAULT)[address] [place] [place] [address] Urea nitrogen [Mass/Vol] 16 mg/dL Normal 7-25 [facility] Comment on above: Performed By: #### M GO, HFP, CHM7, FERIB, PROCAL ####[facility] (DEFAULT)[address] [place] [place] [address] Urea nitrogen/Creatinine [Mass ratio] 12 mg/mg Normal [facility] Comment on above: Performed By: #### M GO, HFP, CHM7, FERIB, PROCAL ####[facility] (DEFAULT)[address] [place] [place] [address] Anion gap [Moles/Vol] 13 mmol/L 7 - 17 mmol/L [facility] Chloride [Moles/Vol] 102 mmol/L 98 - 10 8 mmol/L [facility] CO2 [Moles/Vol] 23 mmol/L 21 - 31 mmol/L [facility] Creatinine [Mass/Vol] 1.37 mg/dL High 0.70 - 1.30 mg/dL [facility] eGFR, CKD-EPI, Male 62 - [facility]F [facility] Glucose [Mass/Vol] 112 mg/dL High 70 - 99 mg/dL [facility] Osmolality Calc [Osmolality] 284 [facility] Potassium [Moles/Vol] 4.4 mmol/L 3.5 - 5.0 mmol/L [facility] Sodium [Moles/Vol] 134 mmol/L Low 135 - 145 mmol/L [facility] Urea nitrogen [Mass/Vol] 16 mg/dL 7 - 25 mg/dL [facility] Urea nitrogen/Creatinine [Mass ratio] 12 mg/mg [facility] CT ABDOMEN/PELVIS WITHOUT CO NTRASTon 08-31-2023 CT ABDOMEN/PELVIS WITHOUT CONTRAST Normal [facility] CT Abdomen and Pelvis WO con traston 08-31-2023 RADIOLOGY RADIOLOGY [facility] Radiology Study observation (narrative) [facility] CT Abdomen and Pelvis WO con trastOrdered By: Chavez Larkin on 08-31-2023 [facility] Work Phone: CT CHEST WITHOUT CONTRASTon 08-31-2023 CT CHEST WITHOUT CONTRAST Normal [facility] CT Chest WO contraston 08-31 RADIOLOGY RADIOLOGY [facility] Radiology Study observation (narrative) [facility] CT Chest WO contrastOrdered By: Daisha Patterson on 08-31-2023 [facility] Work Phone: FERRITINon 08-31-2023 Ferritin [Mass/Vol] 409.0 ng/mL High 10.5 - 3 07.3 ng/mL [facility] Interpretation and review of laboratory results Abnormal [facility] Ferritin [Mass/Vol] 409.0 ng/mL High 10.5-307.3 [facility] Comment on above: Performed By: #### M TAVO BLOOM, CHM7, FERIB, PROCAL ####[facility] (DEFAULT)[address] [place] [address] HEPATIC FUNCTION PANELon Albumin [Mass/Vol] 3.3 g/dL Low 3.5-5.0 [facility] Comment on above: Performed By: #### M MERLE HFP, CHM7, FERIB, PROCAL ####[facility] (DEFAULT)[address] [place] [address] ALP [Catalytic activity/Vol] 113 U/L Normal 32-126 [facility] Comment on above: Performed By: #### M GO, HFP, CHM7, FERIB, PROCAL ####[facility] (DEFAULT)[address] [place] [address] ALT [Catalytic activity/Vol] 25 U/L Normal 10-52 [facility] Comment on above: Performed By: #### M GO, HFP, CHM7, FERIB, PROCAL ####[facility] (DEFAULT)[address] [place] [address] AST [Catalytic activity/Vol] 31 U/L Normal 10-39 [facility] Comment on above: Performed By: #### M GO, HFP, CHM7, FERIB, PROCAL ####[facility] (DEFAULT)[address] [place] [address] Bilirubin [Mass/Vol] 1.1 mg/dL Normal <1.5 [facility] Comment on above: Performed By: #### M GO, HFP, CHM7, FERIB, PROCAL ####[facility] (DEFAULT)[address] [place] [address] Bilirubin.indirect [Mass/Vol] 0.3 mg/dL High <0.3 [facility] Comment on above: Performed By: #### M GO, HFP, CHM7, FERIB, PROCAL ####[facility] (DEFAULT)[address] [place] [address] Protein [Mass/Vol] 7.0 g/dL Normal 6.4-8.3 [facility] Comment on above: Performed By: #### M GO, HFP, CHM7, FERIB, PROCAL ####[facility] (DEFAULT)[address] [place] [address] Albumin [Mass/Vol] 3.3 g/dL Low 3.5 - 5.0 g/dL [facility] ALP [Catalytic activity/Vol] 113 U/L 32 - 126 U/L [facility] ALT [Catalytic activity/Vol] 25 U/L 10 - 52 U/L [facility] AST [Catalytic activity/Vol] 31 U/L 10 - 39 U/L [facility] Bilirubin [Mass/Vol] 1.1 mg/dL NINF - 1.5 mg/dL [facility] Bilirubin.direct [Mass/Vol] 0.3 mg/dL High NINF - 0.3 mg/dL [facility] Protein [Mass/Vol] 7.0 g/dL 6.4 - 8.3 g/dL [facility] LEGIONELLA URINARY AGon 10-0 Legionella Urinary Antigen Negative Normal Negative [facility] Comment on above: Performed By: #### L EGION ####[facility] (DEFAULT)[address] [place] [address] MAGNESIUMon 08-31-2023 Magnesium [Mass/Vol] 1.7 mg/dL Normal 1.6-2.6 [facility] Comment on above: Performed By: #### M GO, HFP, CHM7, FERIB, PROCAL ####[facility] (DEFAULT)[address] [place] [address] Interpretation and review of laboratory results Normal [facility] Magnesium [Mass/Vol] 1.7 mg/dL 1.6 - 2 .6 mg/dL [facility] No Panel Informationon 08-31 Interpretation and review of laboratory results Abnormal [facility] PROCALCITONINon 08-31-2023 Interpretation and review of laboratory results Normal [facility] Procalcitonin [Mass/Vol] 0.23 ng/mL NINF - 0.50 ng/mL [facility] Procalcitonin 0.23 ng/mL Normal <0.50 [facility] Comment on above: Result Comment: Proc [...] and trend procalcitonin in various clinical settings. [email or web address] hospital/departments/Pharmacy/_layouts/15/Wopi Frame.aspx?sourcedoc=/departments/Pharmacy/Documents/GDLProcalcit onin.docx&action=default&DefaultItemOpen=1Two common cutoffs associated with bacterial infections are as follows.Respiratory tract infections: >0.25 ng/mLSepsis/septic shock: >0.5 ng/mLProcalcitonin should not be used alone as a diagnostic tool, however. All procalcitonin results should be interpreted in association with the patients clinical condition and all laboratory findings. Performed By: #### M GO, TAVO, CHM7, CATINA, ANG ####[facility] (DEFAULT)[address] [place] [address] TACROLIMUS LEVEL, TROUGH (IN E DRUG LEVEL)Ordered By: Yanira Marcum on 08-31-2023 Interpretation and review of laboratory results Normal [facility] Tacrolimus (Bld) [Mass/Vol] 5.9 ng/mL [facility], TROUGH (IN E DRUG LEVEL)on 08-31-2023 Tacrolimus, Trough 5.9 ng/mL Normal [facility] Transplant: 4.0-12.0, Therapeutic: 5.0-15.0 [facility] Comment on above: Order Comment: Pleas e draw at specified interval PRIOR to dose. Do not hold dose to wait for level. Specimens batched twice per day, (M-F) and once per day weekendsMethod performed is a chemiluminescent microparticle immunoasssay on the [employer] Delivery Analyst i2000.The range is based on experience at [facility] and users should be aware that target concentrations vary widely depending on concomitant therapy, time post-transplant, and desired degree of immunosuppression. Performed By: #### T ACRO ####[facility] (DEFAULT)[address] [place] [address] URINE CULTUREOrdered By: Jorge Lozano on 08-31-2023 Bacteria identified Cx Nom (Unsp spec) No Growth [facility] DARYL AURIS SCREEN BY PCRO rdered By: Mynor Alejandro on 08-30-2023 Daryl auris Screen by PCR Not detected Not Detected [facility] Interpretation and review of laboratory results Normal [facility] CBC,PLATELETSon 08-30-2023 Hematocrit (Bld) [Volume fraction] 41.3 % Normal 39.6-48.8 [facility] Comment on above: Performed By: #### H EMO ####[facility] (DEFAULT)[address] [place] [place] [address] Hemoglobin (Bld) [Mass/Vol] 13.2 g/dL Low 13.4-16.8 [facility] Comment on above: Performed By: #### H EMOGC ####[facility] (DEFAULT)[address] [place] [address] MCV (RBC) [Entitic vol] 85.5 fL Normal 79.0-94.5 [facility] Comment on above: Performed By: #### H EMOGC ####[facility] (DEFAULT)[address] [place] [address] Mean Cell Hgb 27.3 pg Normal 26.1-33.3 [facility] Comment on above: Performed By: #### H EMOGC ####[facility] (DEFAULT)[address] [place] [place] [address] Mean Cell Hgb Conc 32.0 g/dL Normal 31.9-36.5 [facility] Comment on above: Performed By: #### H EMOGC ####[facility] (DEFAULT)[address] [place] [address] Platelet mean volume (Bld) [Entitic vol] 9.2 fL Normal 8.7-12.3 [facility] Comment on above: Performed By: #### H EMO ####[facility] (DEFAULT)[address] [place] [address] Platelets (Bld) [#/Vol] 235 10*3/uL Normal 146-337 [facility] Comment on above: Performed By: #### H EMO ####[facility] (DEFAULT)[address] [place] [address] RBC (Bld) [#/Vol] 4.83 10*6/uL Normal 4.38-5.83 [facility] Comment on above: Performed By: #### H EMO ####[facility] (DEFAULT)[address] [place] [address] RBC Distribution 13.3 % Normal 10.9-14.3 [facility] Comment on above: Performed By: #### H EMO ####[facility] (DEFAULT)[address] [place] [address] WBC (Bld) [#/Vol] 4.96 10*3/uL Normal 3.73-10.10 [facility] Comment on above: Performed By: #### H EMO ####[facility] (DEFAULT)[address] [place] [address] Erythrocyte distribution width (RBC) [Ratio] 13.3 % 10.9 - 14.3 % [facility] Hematocrit (Bld) [Volume fraction] 41.3 % 39.6 - 48.8 % [facility] Hemoglobin (Bld) [Mass/Vol] 13.2 g/dL Low 13.4 - 16.8 g/dL [facility] Interpretation and review of laboratory results Abnormal [facility] MCH (RBC) [Entitic mass] 27.3 pg 26.1 - 33.3 pg [facility] MCHC (RBC) [Mass/Vol] 32.0 g/dL 31.9 - 36.5 g/dL [facility] MCV (RBC) [Entitic vol] 85.5 fL 79.0 - 94.5 fL [facility] Platelet mean volume (Bld) [Entitic vol] 9.2 fL 8.7 - 12.3 fL [facility] Platelets (Bld) [#/Vol] 235 10*3/uL 146 - 337 K/uL [facility] RBC (Bld) [#/Vol] 4.83 10*6/uL [facility] WBC (Bld) [#/Vol] 4.96 10*3/uL 3.73 - 10. 10 K/uL [facility] CHEM 7 (LYTES,BUN,CREA,GLUC) on 08-30-2023 Anion gap [Moles/Vol] 14 mmol/L Normal 7-17 [facility] Comment on above: Performed By: #### NATHANIEL RAMÍREZ, HFP ####[facility] (DEFAULT)[address] [place] [address] Chloride [Moles/Vol] 102 mmol/L Normal 98-108 [facility] Comment on above: Performed By: #### TJ RAMÍREZ7, HFP ####[facility] (DEFAULT)[address] [place] [address] CO2 [Moles/Vol] 20 mmol/L Low 21-31 [facility] Comment on above: Performed By: #### Rod BLOOM CHM7, HFP ####[facility] (DEFAULT)[address] [place] [address] Creatinine [Mass/Vol] 1.56 mg/dL High 0.70-1.30 [facility] Comment on above: Performed By: #### TJ RAMÍREZ7, HFP ####[facility] (DEFAULT)[address] [place] [address] GFR/1.73 sq M.predicted among non-blacks MDRD (S/P/Bld) [Vol rate/Area] 53 mL/min/{1.73_m2} Low >=60 [facility] Comment on above: Result Comment: Repo rted eGFR is based on the CKD-EPI 2020 equation using creatinine, age, and sex. Performed By: #### NATHANIEL RAMÍREZ, HFP ####[facility] (DEFAULT)[address] [place] [address] Glucose [Mass/Vol] 123 mg/dL High 70-99 [facility] Comment on above: Performed By: #### NATHANIEL RAMÍREZ, HFP ####[facility] (DEFAULT)[address] [place] [address] Osmolality [Osmolality] 281 mosm/kg Normal 278-305 [facility] Comment on above: Performed By: #### NATHANIEL RAMÍREZ, HFP ####[facility] (DEFAULT)[address] [place] [address] Potassium [Moles/Vol] 4.3 mmol/L Normal 3.5-5.0 [facility] Comment on above: Performed By: #### NATHANIEL RAMÍREZ, HFP ####[facility] (DEFAULT)[address] [place] [address] Sodium [Moles/Vol] 132 mmol/L Low 135-145 [facility] Comment on above: Performed By: #### NATHANIEL RAMÍREZ, HFP ####[facility] (DEFAULT)[address] [place] [address] Urea nitrogen [Mass/Vol] 16 mg/dL Normal 7-25 [facility] Comment on above: Performed By: #### NATHANIEL RAMÍREZ, HFP ####[facility] (DEFAULT)[address] [place] [address] Urea nitrogen/Creatinine [Mass ratio] 10 mg/mg Normal [facility] Comment on above: Performed By: #### NATHANIEL RAMÍREZ, HFP ####[facility] (DEFAULT)[address] [place] [address] Anion gap [Moles/Vol] 14 mmol/L 7 - 17 mmol/L [facility] Chloride [Moles/Vol] 102 mmol/L 98 - 10 8 mmol/L [facility] CO2 [Moles/Vol] 20 mmol/L Low 21 - 31 mmol/L [facility] Creatinine [Mass/Vol] 1.56 mg/dL High 0.70 - 1.30 mg/dL [facility] eGFR, CKD-EPI, Male 53 Low - PINF [facility] Glucose [Mass/Vol] 123 mg/dL High 70 - 99 mg/dL [facility] Osmolality Calc [Osmolality] [address] [facility] Potassium [Moles/Vol] 4.3 mmol/L 3.5 - 5.0 mmol/L [facility] Sodium [Moles/Vol] 132 mmol/L Low 135 - 145 mmol/L [facility] Urea nitrogen [Mass/Vol] 16 mg/dL 7 - 25 mg/dL [facility] Urea nitrogen/Creatinine [Mass ratio] 10 mg/mg [facility] EXTRA MICROon 08-30-2023 [facility] HEPATIC FUNCTION PANELon Albumin [Mass/Vol] 3.7 g/dL Normal 3.5-5.0 [facility] Comment on above: Performed By: #### NATHANIEL RAMÍREZ, HFP ####[facility] (DEFAULT)[address] [place] [address] ALP [Catalytic activity/Vol] 115 U/L Normal 32-126 [facility] Comment on above: Performed By: #### M NATHANIEL BLOOM, HFP ####[facility] (DEFAULT)[address] [place] [address] ALT [Catalytic activity/Vol] 22 U/L Normal 10-52 [facility] Comment on above: Performed By: #### NATHANIEL RAMÍREZ, HFP ####[facility] (DEFAULT)[address] [place] [address] AST [Catalytic activity/Vol] 34 U/L Normal 10-39 [facility] Comment on above: Performed By: #### M MERLE CHM7, HFP ####[facility] (DEFAULT)[address] [place] [address] Bilirubin [Mass/Vol] 1.2 mg/dL Normal <1.5 [facility] Comment on above: Performed By: #### M HELEN BLOOMM7, HFP ####[facility] (DEFAULT)[address] [place] [address] Bilirubin.indirect [Mass/Vol] 0.3 mg/dL High <0.3 [facility] Comment on above: Performed By: #### M HELEN BLOOMM7, HFP ####[facility] (DEFAULT)[address] [place] [address] Protein [Mass/Vol] 7.7 g/dL Normal 6.4-8.3 [facility] Comment on above: Performed By: #### M HELEN BLOOMM7, HFP ####[facility] (DEFAULT)[address] [place] [address] Albumin [Mass/Vol] 3.7 g/dL 3.5 - 5.0 g/dL [facility] ALP [Catalytic activity/Vol] 115 U/L 32 - 126 U/L [facility] ALT [Catalytic activity/Vol] 22 U/L 10 - 52 U/L [facility] AST [Catalytic activity/Vol] 34 U/L 10 - 39 U/L [facility] Bilirubin [Mass/Vol] 1.2 mg/dL NINF - 1.5 mg/dL [facility] Bilirubin.direct [Mass/Vol] 0.3 mg/dL High NINF - 0.3 mg/dL [facility] Protein [Mass/Vol] 7.7 g/dL 6.4 - 8.3 g/dL [facility] MAGNESIUMon 08-30-2023 Magnesium [Mass/Vol] 1.8 mg/dL Normal 1.6-2.6 [facility] Comment on above: Performed By: #### M GO, CHM7, [facility] ####[facility] (DEFAULT)[address] [place] [address] Interpretation and review of laboratory results Normal [facility] Magnesium [Mass/Vol] 1.8 mg/dL 1.6 - 2 .6 mg/dL [facility] No Panel Informationon 08-30 Interpretation and review of laboratory results Abnormal [facility] CBC,PLATELETSon 08-29-2023 Hematocrit (Bld) [Volume fraction] 37.6 % Low 39.6-48.8 [facility] Comment on above: Performed By: #### H EMO ####[facility] (DEFAULT)[address] [place] [address] Hemoglobin (Bld) [Mass/Vol] 12.2 g/dL Low 13.4-16.8 [facility] Comment on above: Performed By: #### H EMOGC ####[facility] (DEFAULT)[address] [place] [address] MCV (RBC) [Entitic vol] 85.1 fL Normal 79.0-94.5 [facility] Comment on above: Performed By: #### H EMOGC ####[facility] (DEFAULT)[address] [place] [address] Mean Cell Hgb 27.6 pg Normal 26.1-33.3 [facility] Comment on above: Performed By: #### H EMOGC ####[facility] (DEFAULT)[address] [place] [address] Mean Cell Hgb Conc 32.4 g/dL Normal 31.9-36.5 [facility] Comment on above: Performed By: #### H EMOGC ####[facility] (DEFAULT)[address] [place] [address] Platelet mean volume (Bld) [Entitic vol] 9.4 fL Normal 8.7-12.3 [facility] Comment on above: Performed By: #### H EMO ####[facility] (DEFAULT)[address] [place] [address] Platelets (Bld) [#/Vol] 233 10*3/uL Normal 146-337 [facility] Comment on above: Performed By: #### H EMO ####[facility] (DEFAULT)[address] [place] [address] RBC (Bld) [#/Vol] 4.42 10*6/uL Normal 4.38-5.83 [facility] Comment on above: Performed By: #### H EMO ####[facility] (DEFAULT)[address] [place] [address] RBC Distribution 13.4 % Normal 10.9-14.3 [facility] Comment on above: Performed By: #### H EMO ####[facility] (DEFAULT)[address] [place] [address] WBC (Bld) [#/Vol] 4.92 10*3/uL Normal 3.73-10.10 [facility] Comment on above: Performed By: #### H EMO ####[facility] (DEFAULT)[address] [place] [address] Erythrocyte distribution width (RBC) [Ratio] 13.4 % 10.9 - 14.3 % [facility] Hematocrit (Bld) [Volume fraction] 37.6 % Low 39.6 - 48.8 % [facility] Hemoglobin (Bld) [Mass/Vol] 12.2 g/dL Low 13.4 - 16.8 g/dL [facility] Interpretation and review of laboratory results Abnormal [facility] MCH (RBC) [Entitic mass] 27.6 pg 26.1 - 33.3 pg [facility] MCHC (RBC) [Mass/Vol] 32.4 g/dL 31.9 - 36.5 g/dL [facility] MCV (RBC) [Entitic vol] 85.1 fL 79.0 - 94.5 fL [facility] Platelet mean volume (Bld) [Entitic vol] 9.4 fL 8.7 - 12.3 fL [facility] Platelets (Bld) [#/Vol] 233 10*3/uL 146 - 337 K/uL [facility] RBC (Bld) [#/Vol] 4.42 10*6/uL [facility] WBC (Bld) [#/Vol] 4.92 10*3/uL 3.73 - 10. 10 K/uL [facility] CHEM 7 (LYTES,BUN,CREA,GLUC) on 08-29-2023 Anion gap [Moles/Vol] 13 mmol/L Normal 7-17 [facility] Comment on above: Performed By: #### M GO, CHM7, GGTB, HFP ####[facility] (DEFAULT)[address] [place] [address] Chloride [Moles/Vol] 105 mmol/L Normal 98-108 [facility] Comment on above: Performed By: #### M GO, CHM7, GGTB, HFP ####[facility] (DEFAULT)[address] [place] [address] CO2 [Moles/Vol] 20 mmol/L Low 21-31 [facility] Comment on above: Performed By: #### M GO, CHM7, GGTB, HFP ####[facility] (DEFAULT)[address] [place] [address] Creatinine [Mass/Vol] 1.55 mg/dL High 0.70-1.30 [facility] Comment on above: Performed By: #### M GO, CHM7, GGTB, HFP ####[facility] (DEFAULT)[address] [place] [address] GFR/1.73 sq M.predicted among non-blacks MDRD (S/P/Bld) [Vol rate/Area] 54 mL/min/{1.73_m2} Low >=60 [facility] Comment on above: Result Comment: Repo rted eGFR is based on the CKD-EPI 2020 equation using creatinine, age, and sex. Performed By: #### M GO, CHM7, GGTB, HFP ####[facility] (DEFAULT)[address] [place] [address] Glucose [Mass/Vol] 108 mg/dL High 70-99 [facility] Comment on above: Performed By: #### M GO, CHM7, GGTB, HFP ####[facility] (DEFAULT)[address] [place] [address] Osmolality [Osmolality] 283 mosm/kg Normal 278-305 [facility] Comment on above: Performed By: #### M GO, CHM7, GGTB, HFP ####[facility] (DEFAULT)[address] [place] [address] Potassium [Moles/Vol] 4.5 mmol/L Normal 3.5-5.0 [facility] Comment on above: Performed By: #### M GO, CHM7, GGTB, HFP ####[facility] (DEFAULT)[address] [place] [address] Sodium [Moles/Vol] 133 mmol/L Low 135-145 [facility] Comment on above: Performed By: #### M GO, CHM7, GGTB, HFP ####[facility] (DEFAULT)[address] [place] [address] Urea nitrogen [Mass/Vol] 19 mg/dL Normal 7-25 [facility] Comment on above: Performed By: #### M GO, CHM7, GGTB, HFP ####[facility] (DEFAULT)[address] [place] [address] Urea nitrogen/Creatinine [Mass ratio] 12 mg/mg Normal [facility] Comment on above: Performed By: #### M GO, CHM7, GGTB, HFP ####[facility] (DEFAULT)[address] [place] [address] Anion gap [Moles/Vol] 13 mmol/L 7 - 17 mmol/L [facility] Chloride [Moles/Vol] 105 mmol/L 98 - 10 8 mmol/L [facility] CO2 [Moles/Vol] 20 mmol/L Low 21 - 31 mmol/L [facility] Creatinine [Mass/Vol] 1.55 mg/dL High 0.70 - 1.30 mg/dL [facility] eGFR, CKD-EPI, Male 55 Low - PINF [facility] Glucose [Mass/Vol] 108 mg/dL High 70 - 99 mg/dL [facility] Osmolality Calc [Osmolality] 283 [facility] Potassium [Moles/Vol] 4.5 mmol/L 3.5 - 5.0 mmol/L [facility] Sodium [Moles/Vol] 133 mmol/L Low 135 - 145 mmol/L [facility] Urea nitrogen [Mass/Vol] 19 mg/dL 7 - 25 mg/dL [facility] Urea nitrogen/Creatinine [Mass ratio] 12 mg/mg [facility] GGTon 08-29-2023 Gamma glutamyl transferase [Catalytic activity/Vol] 64 U/L 8 - 64 U/L [facility] Interpretation and review of laboratory results Normal [facility] Gamma glutamyl transferase [Catalytic activity/Vol] 64 U/L Normal 8-64 [facility] Comment on above: Performed By: #### M GO, CHM7, GGTB, HFP ####[facility] (DEFAULT)[address] [place] [address] HEPATIC FUNCTION PANELon Albumin [Mass/Vol] 3.3 g/dL Low 3.5-5.0 [facility] Comment on above: Performed By: #### M GO, CHM7, GGTB, HFP ####[facility] (DEFAULT)[address] [place] [address] ALP [Catalytic activity/Vol] 103 U/L Normal 32-126 [facility] Comment on above: Performed By: #### M GO, CHM7, GGTB, HFP ####[facility] (DEFAULT)[address] [place] [address] ALT [Catalytic activity/Vol] 18 U/L Normal 10-52 [facility] Comment on above: Performed By: #### M GO, CHM7, GGTB, HFP ####[facility] (DEFAULT)[address] [place] [address] AST [Catalytic activity/Vol] 27 U/L Normal 10-39 [facility] Comment on above: Performed By: #### M GO, CHM7, GGTB, HFP ####[facility] (DEFAULT)[address] [place] [address] Bilirubin [Mass/Vol] 1.1 mg/dL Normal <1.5 [facility] Comment on above: Performed By: #### M GO, CHM7, GGTB, HFP ####[facility] (DEFAULT)[address] [place] [address] Bilirubin.indirect [Mass/Vol] 0.3 mg/dL High <0.3 [facility] Comment on above: Performed By: #### M GO, CHM7, GGTB, HFP ####[facility] (DEFAULT)[address] [place] [address] Protein [Mass/Vol] 6.8 g/dL Normal 6.4-8.3 [facility] Comment on above: Performed By: #### M GO, CHM7, GGTB, HFP ####[facility] (DEFAULT)[address] [place] [address] Albumin [Mass/Vol] 3.3 g/dL Low 3.5 - 5.0 g/dL [facility] ALP [Catalytic activity/Vol] 103 U/L 32 - 126 U/L [facility] ALT [Catalytic activity/Vol] 18 U/L 10 - 52 U/L [facility] AST [Catalytic activity/Vol] 27 U/L 10 - 39 U/L [facility] Bilirubin [Mass/Vol] 1.1 mg/dL NINF - 1.5 mg/dL [facility] Bilirubin.direct [Mass/Vol] 0.3 mg/dL High NINF - 0.3 mg/dL [facility] Protein [Mass/Vol] 6.8 g/dL 6.4 - 8.3 g/dL [facility] HISTOPLASMA AND BLASTOMYCES ANTIGEN, ENZYME IMMUNOASSAY, SERMon 08-29-2023 Histoplasma/Blastomy antonia Ag Result Detected Invalid Interpretation Code Not Detected [facility] Comment on above: Result Comment: Anti gen from Histoplasma or Blastomyces (unable todifferentiate) detected. Result should be correlated withclinical presentation, exposure history, and otherdiagnostic procedures, including culture, serology,histopathology, and/or radiographic findings, to aid in thedifferentiation between histoplasmosis and blastomycosis.CRITICAL RESULT Performed By: #### H CORAL ####[facility] (DEFAULT)[address] [place] [address] Histoplasma/Blastomy antonia Ag Value 5.3 ng/mL Normal [facility] Comment on above: Result Comment: ---- ADDITIONAL INFORMATION This test was developed and its performance characteristicsdetermined by [facility] in a manner consistent with CLIArequirements. This test has not been cleared or approved bythe U.S. Food and Drug Administration.Test Performed by:[facility] - [address] [address]Jxg Director: Rosendo Bose M.D. Ph.D.; CLIA# [id number] Performed By: #### H IBAG ####[facility] (DEFAULT)[address] [place] [address] HISTOPLASMA ANTIGEN,URINEon 08-29-2023 HISTOPLASM AG, URINE Not detected Normal Not Detected [facility] Comment on above: Result Comment: No H istoplasma antigen detected.False negative results may occur. Repeat testing on anew specimen should be considered if clinically indicated. Performed By: #### Y HISTG ####[facility] (DEFAULT)[address] [place] [address] Histoplasma Ag Value Not detected Normal [facility] Comment on above: Result Comment: ---- ADDITIONAL INFORMATION This test has been modified from the tow motor operator'sinstructions. Its performance characteristics weredetermined by [facility] in a manner consistent withCLIA requirements. This test has not been cleared orapproved by the U.S. Food and Drug Administration.Test Performed by:[place] [id number] Director: Rosendo Bose M.D. Ph.D.; CLIA# [id number] Performed By: #### Y HISTG ####[facility] (DEFAULT)[address] [place] [address] MAGNESIUMon 08-29-2023 Magnesium [Mass/Vol] 1.7 mg/dL Normal 1.6-2.6 [facility] Comment on above: Performed By: #### M GO, CHM7, GGTB, HFP ####[facility] (DEFAULT)[address] [place] [address] Interpretation and review of laboratory results Normal [facility] Magnesium [Mass/Vol] 1.7 mg/dL 1.6 - 2 .6 mg/dL [facility] No Panel Informationon 08-29 Interpretation and review of laboratory results Abnormal [facility] PT,INR,PTTon 08-29-2023 aPTT Coag (Bld) [Time] 29.3 s Normal 24.0-34.3 [facility] Comment on above: Performed By: #### P TPTT ####[facility] (DEFAULT)[address] [place] [place] [address] INR Coag (PPP) [Relative time] 1.1 {INR} Normal 0.9-1.1 [facility] Comment on above: Performed By: #### P TPTT ####[facility] (DEFAULT)[address] [place] [address] PT Coag (PPP) [Time] 13.8 s Normal 11.9-14.2 [facility] Comment on above: Performed By: #### P TPTT ####[facility] (DEFAULT)[address] [place] [address] aPTT Coag (PPP) [Time] 29.3 s [facility] INR Coag (Bld) [Relative time] 1.1 {INR} 0.9 - 1.1 [facility] Interpretation and review of laboratory results Normal [facility] PT Coag (PPP) [Time] 13.8 s [facility] Portable XR Chest Viewson RADIOLOGY RADIOLOGY [facility] Portable XR Chest ViewsOrder ed By: Gerald Baer on 08-29-2023 [facility] Work Phone: TACROLIMUS LEVEL, TROUGH (IN E DRUG LEVEL)on 08-29-2023 Interpretation and review of laboratory results Normal [facility] Tacrolimus (Bld) [Mass/Vol] 8.9 ng/mL [facility] Tacrolimus, Trough 8.9 ng/mL Normal Bone Susana ow Transplant: 4.0-12.0, Therapeutic: 5.0-15.0 [facility] Comment on above: Order Comment: Pleas e draw at specified interval PRIOR to dose. Do not hold dose to wait for level. Specimens batched twice per day, (M-F) and once per day weekendsMethod performed is a chemiluminescent microparticle immunoasssay on the [employer] Delivery [employer]st i2000.The range is based on experience at [facility] and users should be aware that target concentrations vary widely depending on concomitant therapy, time post-transplant, and desired degree of immunosuppression. Performed By: #### T ACRO ####[facility] (DEFAULT)[address] [place] [address] Tacrolimus, Trough 8.7 ng/mL Normal [facility] Transplant: 4.0-12.0, Therapeutic: 5.0-15.0 [facility] Comment on above: Order Comment: Pleas e draw at specified interval PRIOR to dose. Do not hold dose to wait for level. Specimens batched twice per day, (M-F) and once per day weekendsMethod performed is a chemiluminescent microparticle immunoasssay on the [employer]st i2000.The range is based on experience at [facility] and users should be aware that target concentrations vary widely depending on concomitant therapy, time post-transplant, and desired degree of immunosuppression. Performed By: #### T ACRO ####[facility] (DEFAULT)[address] [place] [address] TACROLIMUS LEVEL, TROUGH (IN E DRUG LEVEL)Ordered By: Roxanne Louie on 08-29-2023 Interpretation and review of laboratory results Normal [facility] Tacrolimus (Bld) [Mass/Vol] 8.7 ng/mL [facility] URINALYSIS REFLEX TO CULTURE PERFORMABLEon 08-29-2023 Appearance (U) Clear Normal Clear [facility] Comment on above: Order Comment: For i ndwelling catheters, specimen collection is acceptable on catheter day 1 and 2 only. ? Performed By: #### U [id number] ####[facility] (DEFAULT)[address] [place] [address] Bacteria ABSENT Normal ABSENT [facility] Comment on above: Order Comment: For i ndwelling catheters, specimen collection is acceptable on catheter day 1 and 2 only. ? Performed By: #### U [id number] ####[facility] (DEFAULT)[address] [place] [address] Blood Urine Trace Abnormal Negative [facility] Comment on above: Order Comment: For i ndwelling catheters, specimen collection is acceptable on catheter day 1 and 2 only. ? Performed By: #### U [id number] ####[facility] (DEFAULT)[address] [place] [address] Calcium Oxalate Crystals PRESENT Normal [facility] Comment on above: Order Comment: For i ndwelling catheters, specimen collection is acceptable on catheter day 1 and 2 only. ? Performed By: #### U [id number] ####[facility] (DEFAULT)[address] [facility] [place] [place] [address] Color (U) Yellow Normal Yellow [facility] Comment on above: Order Comment: For i ndwelling catheters, specimen collection is acceptable on catheter day 1 and 2 only. ? Performed By: #### U [id number] ####[facility] (DEFAULT)[address] [facility] [place] [place] [address] Glucose Ql (U) Negative Normal Negative [facility] Comment on above: Order Comment: For i ndwelling catheters, specimen collection is acceptable on catheter day 1 and 2 only. ? Performed By: #### U [id number] ####[facility] (DEFAULT)[address] [facility] [place] [place] [address] Ketones Ql (U) Negative Normal Negative [facility] Comment on above: Order Comment: For i ndwelling catheters, specimen collection is acceptable on catheter day 1 and 2 only. ? Performed By: #### U [id number] ####[facility] (DEFAULT)[address] [facility] [place] [place] [address] Leukocyte esterase Test strip Ql (U) Negative Normal Negative [facility] Comment on above: Order Comment: For i ndwelling catheters, specimen collection is acceptable on catheter day 1 and 2 only. ? Performed By: #### U [id number] ####[facility] (DEFAULT)[address] [facility] [place] [place] [address] Nitrites Urine Negative Normal Negative [facility] Comment on above: Order Comment: For i ndwelling catheters, specimen collection is acceptable on catheter day 1 and 2 only. ? Performed By: #### U [id number] ####[facility] (DEFAULT)[address] [place] [address] pH (U) 6.0 [pH] Normal 5.0-7.0 [facility] Comment on above: Order Comment: For i ndwelling catheters, specimen collection is acceptable on catheter day 1 and 2 only. ? Performed By: #### U [id number] ####[facility] (DEFAULT)[address] [place] [address] Protein Urine Negative Normal Negative [facility] Comment on above: Order Comment: For i ndwelling catheters, specimen collection is acceptable on catheter day 1 and 2 only. ? Performed By: #### U [id number] ####[facility] (DEFAULT)[address] [place], [place] [address] [place] [address] RBC Urine 3-5 Abnormal 0-2 [facility] Comment on above: Order Comment: For i ndwelling catheters, specimen collection is acceptable on catheter day 1 and 2 only. ? Performed By: #### U [id number] ####[facility] (DEFAULT)[address] [place], [place] [address] [place] [address] Specific Cammal Urine 1.015 Normal 1.001-1.035 [facility] Comment on above: Order Comment: For i ndwelling catheters, specimen collection is acceptable on catheter day 1 and 2 only. ? Performed By: #### U [id number] ####[facility] (DEFAULT)[address] [place] [address] Squamous/Epithelial Cells 0-2/hpf Normal 0-2/hpf, 3-5/hpf = 1+ [facility] Comment on above: Order Comment: For i ndwelling catheters, specimen collection is acceptable on catheter day 1 and 2 only. ? Performed By: #### U [id number] ####[facility] (DEFAULT)[address] [place] [address] Urobilinogen Urine 1.0 E.U./dL Normal 0.2 E.U/d L, 1.0 E.U/dL [facility] Comment on above: Order Comment: For i ndwelling catheters, specimen collection is acceptable on catheter day 1 and 2 only. ? Performed By: #### U [id number] ####[facility] (DEFAULT)[address] [place] [address] WBC Urine 0 - 5 Normal 0 - 5 [facility] Comment on above: Order Comment: For i ndwelling catheters, specimen collection is acceptable on catheter day 1 and 2 only. ? Performed By: #### U [id number] ####[facility] (DEFAULT)[address] [place] [address] URINALYSIS REFLEX TO CULTURE PERFORMABLEOrdered By: Shaji Kelly on 08-29-2023 Appearance (U) Clear Clear [facility] Bacteria LM Ql (Urine sed) ABSENT ABSENT [facility] Calcium Oxalate Crystals PRESENT [facility] Color (U) Yellow Yellow [facility] Epithelial cells.squamous LM Ql (Urine sed) 0-2/hpf 0-2/hpf, 3-5/hpf = 1+ [facility] Glucose Test strip (U) [Mass/Vol] Negative Negative [facility] Interpretation and review of laboratory results Abnormal [facility] Ketones (U) [Mass/Vol] Negative Negative [facility] Leukocyte esterase Test strip Ql (U) Negative Negative [facility] Nitrite Ql (U) Negative Negative [facility] pH (U) 6.0 [pH] 5.0 - 7.0 [facility] Protein (U) [Mass/Vol] Negative Negative [facility] RBC (U) [#/Vol] Trace Abnormal Negative [facility] RBC LM.HPF (Urine sed) [#/Area] 3-[address] [facility] Specific gravity (U) [Rel density] 1.015 1.001 - 1.035 [facility] Urobilinogen (U) [Mass/Vol] 1.0 E.U./dL 0.2 E.U/dL, 1.0 E.U/dL [facility] WBC LM.HPF (Urine sed) [#/Area] 0 - 5 [facility] URINE CULTUREon 08-29-2023 Bacteria identified Cx Nom (U) No Growth Normal [facility] Comment on above: Order Comment: For i ndwelling catheters, specimen collection is acceptable on catheter day 1 and 2 only. Sung top vacutainer. Urine must be to the fill line to process (4mls). If minimum volume, send urine in a yellow top vacutainer tube. Performed By: #### U R ####[facility] (DEFAULT)[address] [place] [address] US RENAL TRANSPLANT SCANon 0 08-29-2023 US RENAL TRANSPLANT SCAN Normal [facility] US for transplanted kidney l imitedon 08-29-2023 RADIOLOGY RADIOLOGY [facility] Radiology Study observation (narrative) [facility] US for transplanted kidney l imitedOrdered By: Romana Matias on 08-29-2023 [facility] Work Phone: XR CHEST PORTABLEon 08-29-20 23 XR CHEST PORTABLE Normal [facility] BLOOD CULTUREon 08-28-2023 Bacteria identified Cx Nom (Unsp spec) NO GROWTH DAY 5 OF 5 Normal [facility] Comment on above: Order Comment: 2 Bot tles (1 Set - consists of 1 Aerobic bottle and 1 Anaerobic bottle) -1st Peripheral DrawFor syringe method draw:If able to obtain adequate sample (20 ml) inoculate anaerobic bottle firstIf inadequate sample obtained (less than 20 ml) inoculate aerobic bottle firstFor vacutainer method draw: Fill aerobic bottle first, then anaerobic Performed By: #### B LDCULT ####[facility] (DEFAULT)[address] [place] [address] Bacteria identified Cx Nom (Unsp spec) NO GROWTH DAY 5 OF 5 Normal [facility] Comment on above: Order Comment: 2 Bot tles (1 Set - consists of 1 Aerobic bottle and 1 Anaerobic bottle) -1st Peripheral DrawFor syringe method draw:If able to obtain adequate sample (20 ml) inoculate anaerobic bottle firstIf inadequate sample obtained (less than 20 ml) inoculate aerobic bottle firstFor vacutainer method draw: Fill aerobic bottle first, then anaerobic Performed By: #### B LDCULT ####[facility] (DEFAULT)[address] [place] [address] DARYL AURIS SCREEN BY PCRo n 08-28-2023 Daryl auris Screen by PCR Not detected Normal Not Detected [facility] Comment on above: Order Comment: This test was performed using a real-time PCR assay. This test was developed, and its performance characteristics determined by [facility]. It has not been cleared or approved by the FDA. The laboratory is regulated under CLIA as qualified to perform high-complexity testing. This test is used for clinical purposes. It should not be regarded as investigational or for research. Performed By: #### C ANDIDA AURIS SCREEN BY PCR ####[facility] (DEFAULT)[address] [place] [address] CBC AND ELECTRONIC DIFFon Abs Baso Auto < Normal 0.00-0.09 [facility] Comment on above: Performed By: #### L [id number] ####[facility] (DEFAULT)[address] [place] [address] Basophils/100 WBC (Bld) 0.6 % Normal [facility] Comment on above: Performed By: #### L [id number] ####[facility] (DEFAULT)[address] [place] [address] DIFF STATUS Electronic Differential Normal [facility] Comment on above: Performed By: #### L [id number] ####[facility] (DEFAULT)[address] [place] [address] Eosinophils (Bld) [#/Vol] 0.10 10*3/uL Normal 0.00-0.48 [facility] Comment on above: Performed By: #### L [id number] ####[facility] (DEFAULT)[address] [place] [address] Eosinophils/100 WBC (Bld) 2.1 % Normal [facility] Comment on above: Performed By: #### L [id number] ####[facility] (DEFAULT)[address] [facility] [place] [place] [address] Hematocrit (Bld) [Volume fraction] 37.9 % Low 39.6-48.8 [facility] Comment on above: Performed By: #### L [id number] ####[facility] (DEFAULT)[address] [place], [place] [address], [place] [address] Hemoglobin (Bld) [Mass/Vol] 12.4 g/dL Low 13.4-16.8 [facility] Comment on above: Performed By: #### L [id number] ####[facility] (DEFAULT)[address] [place] [address], [place] [address] Immature Grans % 0.6 % Normal [facility] Comment on above: Performed By: #### L [id number] ####[facility] (DEFAULT)[address] [place] [address], [place] [address] Immature Grans Absolute < Normal <=0.07 [facility] Comment on above: Performed By: #### L [id number] ####[facility] (DEFAULT)[address] [place] [address] Lymphocytes (Bld) [#/Vol] 1.76 10*3/uL Normal 0.83-3.57 [facility] Comment on above: Performed By: #### L [id number] ####[facility] (DEFAULT)[address] [place] [address], [place] [address] Lymphocytes/100 WBC (Bld) 37.1 % Normal [facility] Comment on above: Performed By: #### L [id number] ####[facility] (DEFAULT)[address] [place] [address] MCV (RBC) [Entitic vol] 85.0 fL Normal 79.0-94.5 [facility] Comment on above: Performed By: #### L [id number] ####[facility] (DEFAULT)[address] [place] [address] Mean Cell Hgb 27.8 pg Normal 26.1-33.3 [facility] Comment on above: Performed By: #### L [id number] ####[facility] (DEFAULT)[address] [facility] [place] [place] [address] Mean Cell Hgb Conc 32.7 g/dL Normal 31.9-36.5 [facility] Comment on above: Performed By: #### L [id number] ####[facility] (DEFAULT)[address] [facility] [place] [place] [address] Monocytes (Bld) [#/Vol] 0.66 10*3/uL Normal 0.24-0.93 [facility] Comment on above: Performed By: #### L [id number] ####[facility] (DEFAULT)[address] [facility] [place] [place] [address] Monocytes/100 WBC (Bld) 13.9 % Normal [facility] Comment on above: Performed By: #### L [id number] ####[facility] (DEFAULT)[address] [place] [address] Nucleated RBC 0.0 /100 WBC Normal <=0.2 [facility] Comment on above: Performed By: #### L [id number] ####[facility] (DEFAULT)[address] [facility] [place] [place] [address] Platelet mean volume (Bld) [Entitic vol] 9.3 fL Normal 8.7-12.3 [facility] Comment on above: Performed By: #### L [id number] ####[facility] (DEFAULT)[address] [place] [address] Platelets (Bld) [#/Vol] 262 10*3/uL Normal 146-337 [facility] Comment on above: Performed By: #### L [id number] ####[facility] (DEFAULT)[address] [place] [address] RBC (Bld) [#/Vol] 4.46 10*6/uL Normal 4.38-5.83 [facility] Comment on above: Performed By: #### L [id number] ####[facility] (DEFAULT)[address] [facility] [place] [place] [address] RBC Distribution 13.4 % Normal 10.9-14.3 [facility] Comment on above: Performed By: #### L [id number] ####[facility] (DEFAULT)[address] [place] [address] Segs + Bands Auto 45.7 % Normal [facility] Comment on above: Performed By: #### L [id number] ####[facility] (DEFAULT)[address] [place] [address] Segs + Bands,Absolute Auto 2.16 K/uL Normal 1.57-6.19 [facility] Comment on above: Performed By: #### L [id number] ####[facility] (DEFAULT)[address] [place] [address] WBC (Bld) [#/Vol] 4.74 10*3/uL Normal 3.73-10.10 [facility] Comment on above: Performed By: #### L [id number] ####[facility] (DEFAULT)[address] [place] [address] Basophils (Bld) [#/Vol] K/uL 0.00 - 0.09 K/uL [facility] Basophils/100 WBC (Bld) 0.6 % [facility] Differential cell count method Nom (Bld) Electronic Differential [facility] Eosinophils (Bld) [#/Vol] 0.10 10*3/uL 0.00 - 0.48 K/uL [facility] Eosinophils/100 WBC (Bld) 2.1 % [facility] Erythrocyte distribution width (RBC) [Ratio] 13.4 % 10.9 - 14.3 % [facility] Hematocrit (Bld) [Volume fraction] 37.9 % Low 39.6 - 48.8 % [facility] Hemoglobin (Bld) [Mass/Vol] 12.4 g/dL Low 13.4 - 16.8 g/dL [facility] Immature granulocytes (Bld) [#/Vol] K/uL NINF - 0.07 K/uL [facility] Immature granulocytes/100 WBC (Bld) 0.6 % [facility] Interpretation and review of laboratory results Abnormal [facility] Lymphocytes (Bld) [#/Vol] 1.76 10*3/uL 0.83 - 3.57 K/uL [facility] Lymphocytes/100 WBC (Bld) 37.1 % [facility] MCH (RBC) [Entitic mass] 27.8 pg 26.1 - 33.3 pg [facility] MCHC (RBC) [Mass/Vol] 32.7 g/dL 31.9 - 36.5 g/dL [facility] MCV (RBC) [Entitic vol] 85.0 fL 79.0 - 94.5 fL [facility] Monocytes (Bld) [#/Vol] 0.66 10*3/uL 0.24 - 0.93 K/uL [facility] Monocytes/100 WBC (Bld) 13.9 % [facility] Neutrophils (Bld) [#/Vol] 2.16 10*3/uL 1.57 - 6.19 K/uL [facility] Nucleated RBC/100 WBC (Bld) [Ratio] 0.0 % [facility] Platelet mean volume (Bld) [Entitic vol] 9.3 fL 8.7 - 12.3 fL [facility] Platelets (Bld) [#/Vol] 262 10*3/uL 146 - 337 K/uL [facility] RBC (Bld) [#/Vol] 4.46 10*6/uL [facility] Segmented neutrophils/100 WBC (Bld) 45.7 % [facility] WBC (Bld) [#/Vol] 4.74 10*3/uL 3.73 - 10. 10 K/uL [facility] CHEM 6 (LYTES, BUN CREA)on 0 08-28-2023 Anion gap [Moles/Vol] 13 mmol/L Normal 7-17 [facility] Comment on above: Performed By: #### C HM6 ####[facility] (DEFAULT)[address] [facility] [place] [place] [address] Chloride [Moles/Vol] 103 mmol/L Normal 98-108 [facility] Comment on above: Performed By: #### C HM6 ####[facility] (DEFAULT)[address] [facility] [place] [place] [address] CO2 [Moles/Vol] 22 mmol/L Normal 21-31 [facility] Comment on above: Performed By: #### C HM6 ####[facility] (DEFAULT)[address] [place] [address] Creatinine [Mass/Vol] 1.62 mg/dL High 0.70-1.30 [facility] Comment on above: Performed By: #### C HM6 ####[facility] (DEFAULT)[address] [place] [address] GFR/1.73 sq M.predicted among non-blacks MDRD (S/P/Bld) [Vol rate/Area] 51 mL/min/{1.73_m2} Low >=60 [facility] Comment on above: Result Comment: Repo rted eGFR is based on the CKD-EPI 2020 equation using creatinine, age, and sex. Performed By: #### C HM6 ####[facility] (DEFAULT)[address] [place] [address] Potassium [Moles/Vol] 4.3 mmol/L Normal 3.5-5.0 [facility] Comment on above: Performed By: #### C HM6 ####[facility] (DEFAULT)[address] [place] [address] Sodium [Moles/Vol] 134 mmol/L Low 135-145 [facility] Comment on above: Performed By: #### C HM6 ####[facility] (DEFAULT)[address] [place] [address] Urea nitrogen [Mass/Vol] 22 mg/dL Normal 7-25 [facility] Comment on above: Performed By: #### C HM6 ####[facility] (DEFAULT)[address] [place] [address] Urea nitrogen/Creatinine [Mass ratio] 14 mg/mg Normal [facility] Comment on above: Performed By: #### C HM6 ####[facility] (DEFAULT)[address] [place] [address] Anion gap [Moles/Vol] 13 mmol/L 7 - 17 mmol/L [facility] Chloride [Moles/Vol] 103 mmol/L 98 - 10 8 mmol/L [facility] CO2 [Moles/Vol] 22 mmol/L 21 - 31 mmol/L [facility] Creatinine [Mass/Vol] 1.62 mg/dL High 0.70 - 1.30 mg/dL [facility] eGFR, CKD-EPI, Male 52 Low - PINF [facility] Interpretation and review of laboratory results Abnormal [facility] Potassium [Moles/Vol] 4.3 mmol/L 3.5 - 5.0 mmol/L [facility] Sodium [Moles/Vol] 134 mmol/L Low 135 - 145 mmol/L [facility] Urea nitrogen [Mass/Vol] 22 mg/dL 7 - 25 mg/dL [facility] Urea nitrogen/Creatinine [Mass ratio] 14 mg/[facility]ED RESPIRATOR Y PANELon 08-28-2023 Adenovirus - Pcr Not detected Normal Not Detected [facility] Comment on above: Order Comment: Viral [...] acid assay. Performed By: #### I CRESP ####[facility] (DEFAULT)[address] [place] [address], [place] [address] Bordetella Parapertussis Not detected Normal Not Detected [facility] Comment on above: Order Comment: Viral [...] acid assay. Performed By: #### I CRESP ####[facility] (DEFAULT)[address] [place] [address], [place] [address] Bordetella Pertussis Not detected Normal Not Detected [facility] Comment on above: Order Comment: Viral [...] acid assay. Performed By: #### I CRESP ####[facility] (DEFAULT)[address] [place] [address] Chlamydia Pneumoniae Not detected Normal Not Detected [facility] Comment on above: Order Comment: Viral [...] assay. Performed By: #### I CRESP ####[facility] (DEFAULT)[address] [place] [address], [place] [address] Coronavirus 229E Not detected Normal Not Detected [facility] Comment on above: Order Comment: Viral [...] acid assay. Performed By: #### I CRESP ####[facility] (DEFAULT)[address] [place] [address], [place] [address] Coronavirus Hku1 Not detected Normal Not Detected [facility] Comment on above: Order Comment: Viral [...] acid assay. Performed By: #### I CRESP ####[facility] (DEFAULT)[address] [place] [address], [place] [address] Coronavirus Nl63 Not detected Normal Not Detected [facility] Comment on above: Order Comment: Viral [...] assay. Performed By: #### I CRESP ####[facility] (DEFAULT)[address] [place] [address] Coronavirus Oc43 Not detected Normal Not Detected [facility] Comment on above: Order Comment: Viral [...] assay. Performed By: #### I CRESP ####[facility] (DEFAULT)[address] [place] [address] Influenza A - Pcr Not detected Normal [...] assay. Performed By: #### I CRESP ####[facility] (DEFAULT)[address] [place] [address], [place] [address] Influenza B - Pcr Not detected Normal [...] acid assay. Performed By: #### I CRESP ####[facility] (DEFAULT)[address] [place] [address], [place] [address] Metapneumovirus - Pcr Not detected Normal Not Detected [facility] Comment on above: Order Comment: Viral [...] acid assay. Performed By: #### I CRESP ####[facility] (DEFAULT)[address] [place] [address], [place] [address] Mycoplasma Pneumoniae Not detected Normal Not Detected [facility] Comment on above: Order Comment: Viral [...] acid assay. Performed By: #### I CRESP ####[facility] (DEFAULT)[address] [place] [address] Parainfluenza 1 - Pcr Not detected Normal Not Detected [facility] Comment on above: Order Comment: Viral [...] acid assay. Performed By: #### I CRESP ####[facility] (DEFAULT)[address] [place] [address], [place] [address] Parainfluenza 2 - Pcr Not detected Normal Not Detected [facility] Comment on above: Order Comment: Viral [...] acid assay. Performed By: #### I CRESP ####[facility] (DEFAULT)[address] [place] [address] Parainfluenza 3 - Pcr Not detected Normal Not Detected [facility] Comment on above: Order Comment: Viral [...] acid assay. Performed By: #### I CRESP ####[facility] (DEFAULT)[address] [place] [address] Parainfluenza 4 - Pcr Not detected Normal Not Detected [facility] Comment on above: Order Comment: Viral [...] acid assay. Performed By: #### I CRESP ####[facility] (DEFAULT)[address] [address] Rhinovirus/Enterovir us - PCR Not detected Normal Not Detected [facility] Comment on above: Order Comment: Viral [...] assay. Performed By: #### I CRESP ####[facility] (DEFAULT)[address] [place] [address] Rsv - Pcr Not detected Normal Not Detected [facility] Comment on above: Order Comment: Viral [...] assay. Performed By: #### I CRESP ####[facility] (DEFAULT)[address] [place] [address] SARS-CoV-2 (COVID-19) RNA ESTELITA+probe Ql (Unsp spec) Not detected Normal NOT DETECTED [facility] Comment on above: Order Comment: Viral [...] acid assay. Performed By: #### I CRESP ####[facility] (DEFAULT)[address] [place] [address] Portable XR Chest Viewson Radiology Study observation (narrative) [facility] Respiratory virus DNA+RNA NA A+probe Nom (Unsp spec)Ordered By: Dayami Harris on 08-28-2023 Adenovirus DNA ESTELITA+probe Nom (Unsp spec) Not detected Not Detected [facility] B. parapertussis DNA ESTELITA+probe Ql (Unsp spec) Not detected Not Detected [facility] B. pertussis DNA ESTELITA+probe Ql (Unsp spec) Not detected Not Detected [facility] C. pneumoniae DNA ESTELITA+probe Ql (Unsp spec) Not detected Not Detected [facility] FLUAV RNA ESTELITA+probe Ql (Unsp spec) Not detected Not Detected [facility] FLUBV RNA ESTELITA+probe Ql (Unsp spec) Not detected Not Detected [facility] HCoV 229E RNA ESTELITA+non-probe Ql (Nph) Not detected Not Detected [facility] HCoV HKU1 RNA ESTELITA+non-probe Ql (Nph) Not detected Not Detected [facility] HCoV NL63 RNA ESTELITA+non-probe Ql (Nph) Not detected Not Detected [facility] HCoV OC43 RNA ESTELITA+non-probe Ql (Nph) Not detected Not Detected [facility] hMPV A RNA ESTELITA+probe Ql (Unsp spec) Not detected Not Detected [facility] Interpretation and review of laboratory results Normal [facility] M. pneumoniae DNA ESTELITA+probe Ql (Unsp spec) Not detected [facility]ed [facility] Parainfluenza virus 1 RNA ESTELITA+probe Ql (Unsp spec) Not detected Not [facility] Parainfluenza virus 2 RNA ESTELITA+probe Ql (Unsp spec) Not detected Not [facility] Parainfluenza virus 3 RNA ESTELITA+probe Ql (Unsp spec) Not detected Not [facility] Parainfluenza virus 4 RNA ESTELITA+probe Ql (Unsp spec) Not detected Not Detected [facility] Rhinovirus+Enterovir us RNA ESTELITA+probe Ql (Unsp spec) Not detected Not Detected [facility] RSV RNA ESTELITA+probe Ql (Unsp spec) Not detected Not Detected [facility] SARS-CoV-2 (COVID-19) RNA ESTELITA+probe Ql (Unsp spec) Not detected NOT DETECTED [facility] Albumin [Mass/Vol] 4.0 g/dL Normal 3.4-5.0 [facility] Comment on above: Performed By: #### C MP #### [facility] [address] [place] [address] Dr. Dwight Waters ALKALINE PHOSPHAon ALP [Catalytic activity/Vol] 106 U/L Normal 46-116 [facility] Comment on above: Performed By: #### F [id number] #### [facility] [address] [place] [address] Dr. Dwight Waters BILIRUBIN CONJUGATED (DIRECT )on 04-28-2023 BILI, CONJUGATED 0.3 mg/dL Critically high 0.0-0.2 [facility] Comment on above: Performed By: #### C MP #### [facility] [address] [place] [address] Dr. Dwight Waters BILIRUBIN TOTALon 04-28-2023 Bilirubin [Mass/Vol] 1.4 mg/dL Critically high 0.2-1.0 [facility] Comment on above: Performed By: #### C MP #### [facility] [address] [place] [address] Dr. Dwight Waters BUNon 04-28-2023 Urea nitrogen [Mass/Vol] 12.0 mg/dL Normal 7.0-18.0 [facility] Comment on above: Performed By: #### U RTPCR #### [facility] [address] [place] [address] Dr. Dwight Waters CALCIUMon 04-28-2023 Calcium [Mass/Vol] 9.3 mg/dL Normal 8.5-10.1 [facility] Comment on above: Performed By: #### U RTPCR #### [facility] [address] [place] [address] Dr. Dwight Waters CBC AUTO DIFFon 04-28-2023 BASO # 0.1 103/ul Normal 0.0-0.1 [facility] Comment on above: Performed By: #### C BC #### [facility] [address] [place] [address] Dr. Dwight Waters Basophils/100 WBC (Bld) 0.9 % Normal 0.2-2.0 [facility] Comment on above: Performed By: #### C BC #### [facility] [address] [place] [address] Dr. Dwight Waters EO # 0.2 103/ul Normal 0.0-0.7 [facility] Comment on above: Performed By: #### C BC #### [facility] [address] [place] [address] Dr. Dwight Waters Eosinophils/100 WBC (Bld) 3.8 % Normal 0.9-7.0 [facility] Comment on above: Performed By: #### C BC #### [facility] [address] [place] [address] Dr. Dwight Waters Erythrocyte distribution width (RBC) [Ratio] 12.5 % Normal 11.0-15.0 [facility] Comment on above: Performed By: #### C BC #### [facility] [address] [place] [address] Dr. Dwight Waters Hematocrit (Bld) [Volume fraction] 49.8 % Normal 42.0-54.0 [facility] Comment on above: Performed By: #### C BC #### [facility] [address] [place] [address] Dr. Dwight Waters Hemoglobin (Bld) [Mass/Vol] 16.4 g/dL Normal 14.0-18.0 [facility] Comment on above: Performed By: #### C BC #### [facility] [address] [place] [address] Dr. Dwight Waters IG # 0.01 10e3/ul Normal 0.00-0.03 [facility] Comment on above: Performed By: #### C BC #### [facility] [address] [place] [address] Dr. Dwight Waters IG % 0.2 % Normal 0.0-0.5 [facility] Comment on above: Performed By: #### C BC #### [facility] [address] [place] [address] Dr. Dwight Waters LYMPH # 2.1 103/ul Normal 1.2-3.8 [facility] Comment on above: Performed By: #### C BC #### [facility] [address] [place] [address] Dr. Dwight Waters Lymphocytes/100 WBC (Bld) 39.1 % Normal 20.5-60.0 [facility] Comment on above: Performed By: #### C BC #### [facility] [address] [place] [address] Dr. Dwight Waters MANUAL DIFF REQ NO Normal [facility] Comment on above: Performed By: #### C BC #### [facility] [address] [place] [address] Dr. Dwight Waters MCH (RBC) [Entitic mass] 28.6 pg Normal 25.9-34.0 [facility] Comment on above: Performed By: #### C BC #### [facility] [address] [place] [address] Dr. Dwight Waters MCHC (RBC) [Mass/Vol] 32.9 g/dL Normal 29.9-35.2 [facility] Comment on above: Performed By: #### C BC #### [facility] [address] [place] [address] Dr. Dwight Waters MCV (RBC) [Entitic vol] 86.9 fL Normal 80.0-94.0 [facility] Comment on above: Performed By: #### C BC #### [facility] [address] [place] [address] Dr. Dwight Waters MONO # 0.6 103/ul Normal 0.3-0.8 [facility] Comment on above: Performed By: #### C BC #### [facility] [address] [place] [address] Dr. Dwight Waters Monocytes/100 WBC (Bld) 10.6 % Normal 1.7-12.0 [facility] Comment on above: Performed By: #### C BC #### [facility] [address] [place] [address] Dr. Dwight Waters NEUT # 2.5 103/ul Normal 1.4-6.5 [facility] Comment on above: Performed By: #### C BC #### [facility] [address] [place] [address] Dr. Dwight Waters Neutrophils/100 WBC (Bld) 45.4 % Normal 43.0-75.0 [facility] Comment on above: Performed By: #### C BC #### [facility] [address] [place] [address] Dr. Dwight Waters Platelet mean volume (Bld) [Entitic vol] 9.3 fL Critically low 9.5-13.5 [facility] Comment on above: Performed By: #### C BC #### [facility] [address] [place] [address] Dr. Dwight Waters PLT 248 103/ul Normal 150-450 [facility] Comment on above: Performed By: #### C BC #### [facility] [address] [place] [address] Dr. Dwight Waters RBC 5.73 106/ul Normal 4.70-6.10 [facility] Comment on above: Performed By: #### C BC #### [facility] [address] [place] [address] Dr. Dwight Waters WBC 5.5 103/ul Normal 4.0-11.0 [facility] Comment on above: Performed By: #### C BC #### [facility] [address] [place] [address] Dr. Dwight Waters CHLORIDEon 04-28-2023 Chloride [Moles/Vol] 107 mmol/L Normal 98-107 [facility] Comment on above: Performed By: #### U RTPCR #### [facility] [address] [place] [address] Dr. Dwight Waters CO2on 04-28-2023 CO2 [Moles/Vol] 28.9 mmol/L Normal 21.0-32.0 [facility] Comment on above: Performed By: #### U RTPCR #### [facility] [address] [place] [address] Dr. Dwight Waters CREATININEon 04-28-2023 Creatinine [Mass/Vol] 1.17 mg/dL Normal 0.70-1.30 [facility] Comment on above: Performed By: #### U RTPCR #### [facility] [address] [place] [address] Dr. Dwight Waters EGFR-AF TURKISH >60 Normal >=60 [facility] Comment on above: Performed By: #### U RTPCR #### [facility] [address] [place] [address] Dr. Dwight Waters EGFR-NON AF TURKISH >60 Normal >=60 [facility] Comment on above: Performed By: #### U RTPCR #### [facility] [address] [place] [address] Dr. Dwight Waters GGTon 04-28-2023 Gamma glutamyl transferase [Catalytic activity/Vol] 27 U/L Normal 15-85 [facility] Comment on above: Performed By: #### U RTPCR #### [facility] [address] [place] [address] Dr. Dwight Waters GLUCOSE BLOODon 04-28-2023 Glucose [Mass/Vol] 110 mg/dL Critically high 74-[address] [facility] Comment on above: Performed By: #### U RTPCR #### [facility] [address] [place] [address] Dr. Dwight Waters MAGNESIUMon 04-28-2023 Magnesium [Mass/Vol] 1.7 mg/dL Critically low 1.8-2.4 [facility] Comment on above: Performed By: #### U RTPCR #### [facility] [address] [place] [address] Dr. Dwight Waters NAon 04-28-2023 Sodium [Moles/Vol] 144 mmol/L Normal 136-145 [facility] Comment on above: Performed By: #### U RTPCR #### [facility] [address] [place] [address] Dr. Dwight Waters PHOSPHORUSon 04-28-2023 Phosphate [Mass/Vol] 3.2 mg/dL Normal 2.6-4.7 [facility] Comment on above: Performed By: #### U RTPCR #### [facility] [address] [place] [address] Dr. Dwight Waters POTASSIUMon 04-28-2023 Potassium [Moles/Vol] 4.0 mmol/L Normal 3.5-5.1 [facility] Comment on above: Performed By: #### U RTPCR #### [facility] [address] [place] [address] Dr. Dwight Waters SGOTon 04-28-2023 AST [Catalytic activity/Vol] 25 U/L Normal 15-37 [facility] Comment on above: Performed By: #### C MP #### [facility] [address] [place] [address] Dr. Dwight Waters SGPTon 04-28-2023 ALT [Catalytic activity/Vol] 40 U/L Normal 16-63 [facility] Comment on above: Performed By: #### C MP #### [facility] [address] [place] [address] Dr. Dwight Waters URINE T PROTEIN CREAT RATIOo n 05-30-2023 Protein (U) [Mass/Vol] 10.1 mg/dL Normal <=12.0 [facility] Comment on above: Performed By: #### U RTPCR #### [facility] [address] [place] [address] Dr. Dwight Waters UR PROT CREAT RAT 0.14 Normal [facility] Comment on above: Performed By: #### U RTPCR #### [facility] [address] [place] [address] Dr. Dwight Waters URINE CREAT 74.40 mg/dL Normal 20.00-300.00 [facility] Comment on above: Performed By: #### U RTPCR #### [facility] [address] [place] [address] Dr. Dwight Waters Office Visiton 04-13-2023 Follow-up visit [id number] George Styles 1970 M Date Provider Department Center 04/13/2023 MIGUEL PARADA [facility] Family History Problem Relation Age of Onset Coronary artery disease Mother Coronary artery disease Father Family Status - Relation Status Age at Mother Father Level of Service:75085 IN OFFICE/OUTPATIENT ESTABLISHED LOW MDM 20-29 MIN Reason for Visit and Comments: Hypertension [163351] Hyperlipidemia [182] Normal [facility] BK VIRUS PCR QUANTon 023 BKV DNA QUANT PCR PLASMA Negative Normal Negative [facility] Comment on above: Result Comment: No B K DNA detected. . The linear range of the assay is 22 - 100,000,000 IU/mL. Performed By: #### B KVIRUS #### [facility] [address] [place] [address] Dr. Dwight Waters Log10 BKV DNA Plasma Normal [facility] Comment on above: Performed By: #### B KVIRUS #### [facility] [address] [place] [address] Dr. Dwight Waters FK506 (TACROLIMUS) WHOLE BLO ODon 03-04-2023 Tacrolimus (FK506), Blood 5.9 ng/mL Normal 2.0-20.0 [facility] Comment on above: Result Comment: Trou gh (immediately following transplant) 15.0 . Trough (steady state, 2 weeks or more after transplant): 3.0 - 8.0 . Performed by LC-MS/MS technology. Performed By: #### C MP #### [facility] [address] [place] [address] Dr. Dwight Waters ALBUMINon 03-02-2023 Albumin [Mass/Vol] 3.9 g/dL Normal 3.4-5.0 [facility] Comment on above: Performed By: #### U RTPCR #### [facility] [address] [place] [address] Dr. Dwight Waters ALKALINE PHOSPHAon ALP [Catalytic activity/Vol] 105 U/L Normal 46-116 [facility] Comment on above: Performed By: #### U RTPCR #### [facility] [address] [place] [address] Dr. Dwight Waters BILIRUBIN CONJUGATED (DIRECT )on 03-02-2023 BILI, CONJUGATED 0.2 mg/dL Normal 0.0-0.2 [facility] Comment on above: Performed By: #### U RTPCR #### [facility] [address] [place] [address] Dr. Dwight Waters BILIRUBIN TOTALon 03-02-2023 Bilirubin [Mass/Vol] 0.9 mg/dL Normal 0.2-1.0 [facility] Comment on above: Performed By: #### U RTPCR #### [facility] [address] [place] [address] Dr. Dwight Waters CBC AUTO DIFFon 03-02-2023 BASO # 0.1 103/ul Normal 0.0-0.1 [facility] Comment on above: Performed By: #### C BC #### [facility] [address] [place] [address] Dr. Dwight Waters Basophils/100 WBC (Bld) 0.9 % Normal 0.2-2.0 [facility] Comment on above: Performed By: #### C BC #### [facility] [address] [place] [address] Dr. Dwight Waters EO # 0.2 103/ul Normal 0.0-0.7 [facility] Comment on above: Performed By: #### C BC #### [facility] [address] [place] [address] Dr. Dwight Waters Eosinophils/100 WBC (Bld) 3.5 % Normal 0.9-7.0 [facility] Comment on above: Performed By: #### C BC #### [facility] [address] [place] [address] Dr. Dwight Waters Erythrocyte distribution width (RBC) [Ratio] 12.7 % Normal 11.0-15.0 [facility] Comment on above: Performed By: #### C BC #### [facility] [address] [place] [address] Dr. Dwight Waters Hematocrit (Bld) [Volume fraction] 48.2 % Normal 42.0-54.0 [facility] Comment on above: Performed By: #### C BC #### [facility] [address] [place] [address] Dr. Dwight Waters Hemoglobin (Bld) [Mass/Vol] 15.9 g/dL Normal 14.0-18.0 [facility] Comment on above: Performed By: #### C BC #### [facility] [address] [place] [address] Dr. Dwight Waters IG # 0.01 10e3/ul Normal 0.00-0.03 [facility] Comment on above: Performed By: #### C BC #### [facility] [address] [place] [address] Dr. Dwight Waters IG % 0.2 % Normal 0.0-0.5 [facility] Comment on above: Performed By: #### C BC #### [facility] [address] [place] [address] Dr. Dwight Waters LYMPH # 2.1 103/ul Normal 1.2-3.8 [facility] Comment on above: Performed By: #### C BC #### [facility] [address] [place] [address] Dr. Dwight Waters Lymphocytes/100 WBC (Bld) 37.4 % Normal 20.5-60.0 [facility] Comment on above: Performed By: #### C BC #### [facility] [address] [place] [address] Dr. Dwight Waters MANUAL DIFF REQ NO Normal [facility] Comment on above: Performed By: #### C BC #### [facility] [address] [place] [address] Dr. Dwight Waters MCH (RBC) [Entitic mass] 28.3 pg Normal 25.9-34.0 [facility] Comment on above: Performed By: #### C BC #### [facility] [address] [place] [address] Dr. Dwight Waters MCHC (RBC) [Mass/Vol] 33.0 g/dL Normal 29.9-35.2 [facility] Comment on above: Performed By: #### C BC #### [facility] [address] [place] [address] Dr. Dwight Waters MCV (RBC) [Entitic vol] 85.8 fL Normal 80.0-94.0 [facility] Comment on above: Performed By: #### C BC #### [facility] [address] [place] [address] Dr. Dwight Waters MONO # 0.6 103/ul Normal 0.3-0.8 [facility] Comment on above: Performed By: #### C BC #### [facility] [address] [place] [address] Dr. Dwight Waetrs Monocytes/100 WBC (Bld) 10.2 % Normal 1.7-12.0 [facility] Comment on above: Performed By: #### C BC #### [facility] [address] [place] [address] Dr. Dwight Waters NEUT # 2.7 103/ul Normal 1.4-6.5 [facility] Comment on above: Performed By: #### C BC #### [facility] [address] [place] [address] Dr. Dwight Waters Neutrophils/100 WBC (Bld) 47.8 % Normal 43.0-75.0 [facility] Comment on above: Performed By: #### C BC #### [facility] [address] [place] [address] Dr. Dwight Waters Platelet mean volume (Bld) [Entitic vol] 9.3 fL Critically low 9.5-13.5 [facility] Comment on above: Performed By: #### C BC #### [facility] [address] [place] [address] Dr. Dwight Waters PLT 241 103/ul Normal 150-450 [facility] Comment on above: Performed By: #### C BC #### [facility] [address] [place] [address] Dr. Dwight Waters RBC 5.62 106/ul Normal 4.70-6.10 [facility] Comment on above: Performed By: #### C BC #### [facility] [address] [place] [address] Dr. Dwight Waters WBC 5.7 103/ul Normal 4.0-11.0 [facility] Comment on above: Performed By: #### C BC #### [facility] [address] [place] [address] Dr. Dwight Waters GGTon 03-02-2023 Gamma glutamyl transferase [Catalytic activity/Vol] 25 U/L Normal 15-85 [facility] Comment on above: Performed By: #### U RTPCR #### [facility] [address] [place] [address] Dr. Dwight Waters MAGNESIUMon 03-02-2023 Magnesium [Mass/Vol] 1.6 mg/dL Critically low 1.8-2.4 [facility] Comment on above: Performed By: #### U RTPCR #### [facility] [address] [place] [address] Dr. Dwight Waters PHOSPHORUSon 03-02-2023 Phosphate [Mass/Vol] 3.6 mg/dL Normal 2.6-4.7 [facility] Comment on above: Performed By: #### U RTPCR #### [facility] [address] [place] [address] Dr. Dwight Waters PROF CHEM 8 (BAS METB)on Anion gap [Moles/Vol] 9.4 mmol/L Normal [facility] Comment on above: Performed By: #### U RTPCR #### [facility] [address] [address] [address] Dwight Waters Calcium [Mass/Vol] 9.3 mg/dL Normal 8.5-10.1 [facility] Comment on above: Performed By: #### U RTPCR #### [facility] [address] [address] [address] Dwight Waters Chloride [Moles/Vol] 108 mmol/L Critically high 98-107 [facility] Comment on above: Performed By: #### U RTPCR #### [facility] [address] [address] [address] Dwight Waters CO2 [Moles/Vol] 27.2 mmol/L Normal 21.0-32.0 [facility] Comment on above: Performed By: #### U RTPCR #### [facility] [address] [place] [address] Dr. Dwight Waters Creatinine [Mass/Vol] 1.12 mg/dL Normal 0.70-1.30 [facility] Comment on above: Performed By: #### U RTPCR #### [facility] [address] [place] [address] Dr. Dwight Waters EGFR-AF TURKISH >60 Normal >=60 [facility] Comment on above: Performed By: #### U RTPCR #### [facility] [address] [place] [address] Dr. Dwight Waters EGFR-NON AF TURKISH >60 Normal >=60 [facility] Comment on above: Performed By: #### U RTPCR #### [facility] [address] [address] [address] Dwight Waters Glucose [Mass/Vol] 113 mg/dL Critically high 74-106 [facility] Comment on above: Performed By: #### U RTPCR #### [facility] [address] [address] [address] Dwight Waters Potassium [Moles/Vol] 3.6 mmol/L Normal 3.5-5.1 [facility] Comment on above: Performed By: #### U RTPCR #### [facility] [address] [place] [address] Dr. Dwight Waters Sodium [Moles/Vol] 141 mmol/L Normal 136-145 [facility] Comment on above: Performed By: #### U RTPCR #### [facility] [address] [place] [address] Dr. Dwight Waters Urea nitrogen [Mass/Vol] 14.0 mg/dL Normal 7.0-18.0 [facility] Comment on above: Performed By: #### U RTPCR #### [facility] [address] [place] [address] Dr. Dwight Waters Urea nitrogen/Creatinine [Mass ratio] 12.5 mg/mg Normal [facility] Comment on above: Performed By: #### U RTPCR #### [facility] [address] [place] [address] Dr. Dwight Waters SGOTon 03-02-2023 AST [Catalytic activity/Vol] 20 U/L Normal 15-37 [facility] Comment on above: Performed By: #### U RTPCR #### [facility] [address] [place] [address] Dr. Dwight Waters SGPTon 03-02-2023 ALT [Catalytic activity/Vol] 30 U/L Normal 16-63 [facility] Comment on above: Performed By: #### U RTPCR #### [facility] [address] [place] [address] Dr. Dwight Waters URINE T PROTEIN CREAT RATIOo n 03-02-2023 Protein (U) [Mass/Vol] 10.3 mg/dL Normal <=12.0 [facility] Comment on above: Performed By: #### U RTPCR #### [facility] [address] [place] [address] Dr. Dwight Waters UR PROT CREAT RAT 0.15 Normal [facility] Comment on above: Performed By: #### U RTPCR #### [facility] [address] [place] [address] Dr. Dwight Waters URINE CREAT 68.96 mg/dL Normal 20.00-300.00 [facility] Comment on above: Performed By: #### U RTPCR #### [facility] [address] [place] [address] Dr. Dwight Waters BK VIRUS PCR QUANTon 023 BKV DNA QUANT PCR PLASMA Negative Normal Negative [facility] Comment on above: Result Comment: No B K DNA detected. . The linear range of the assay is 22 - 100,000,000 IU/mL. Performed By: #### C MP #### [facility] [address] [place] [address] Dr. Dwight Waters Log10 BKV DNA Plasma Normal [facility] Comment on above: Performed By: #### C MP #### [facility] [address] [place] [address] Dr. Dwight Waters FK506 (TACROLIMUS) WHOLE BLO ODon 12-31-2022 Tacrolimus (FK506), Blood 5.6 ng/mL Normal 2.0-20.0 [facility] Comment on above: Result Comment: Trou gh (immediately following transplant) 15.0 . Trough (steady state, 2 weeks or more after transplant): 3.0 - 8.0 . Performed by LC-MS/MS technology. Performed By: #### C MP #### [facility] [address] [place] [address] Dr. Dwight Waters ALKALINE PHOSPHAon ALP [Catalytic activity/Vol] 96 U/L Normal 46-116 [facility] Comment on above: Performed By: #### C BC #### [facility] [address] [place] [address] Dr. Dwight Waters BILIRUBIN CONJUGATED (DIRECT )on 12-29-2022 BILI, CONJUGATED 0.3 mg/dL Critically high 0.0-0.2 [facility] Comment on above: Performed By: #### C BC #### [facility] [address] [place] [address] Dr. Dwight Waters BILIRUBIN TOTALon 12-29-2022 Bilirubin [Mass/Vol] 1.1 mg/dL Critically high 0.2-1.0 [facility] Comment on above: Performed By: #### C BC #### [facility] [address] [address] [address] Dwight Waters CBC AUTO DIFFon 12-29-2022 BASO # 0.1 103/ul Normal 0.0-0.1 [facility] Comment on above: Performed By: #### C MP #### [facility] [address] [place] [address] Dr. Dwight Waters Basophils/100 WBC (Bld) 0.8 % Normal 0.2-2.0 [facility] Comment on above: Performed By: #### C MP #### [facility] [address] [place] [address] Dr. Dwight Waters EO # 0.2 103/ul Normal 0.0-0.7 [facility] Comment on above: Performed By: #### C MP #### [facility] [address] [place] [address] Dr. Dwight Waters Eosinophils/100 WBC (Bld) 3.0 % Normal 0.9-7.0 [facility] Comment on above: Performed By: #### C MP #### [facility] [address] [place] [address] Dr. Dwight Waters Erythrocyte distribution width (RBC) [Ratio] 12.9 % Normal 11.0-15.0 [facility] Comment on above: Performed By: #### C MP #### [facility] [address] [place] [address] Dr. Dwight Waters Hematocrit (Bld) [Volume fraction] 46.9 % Normal 42.0-54.0 [facility] Comment on above: Performed By: #### C MP #### [facility] [address] [place] [address] Dr. Dwight Waters Hemoglobin (Bld) [Mass/Vol] 16.1 g/dL Normal 14.0-18.0 [facility] Comment on above: Performed By: #### C MP #### [facility] [address] [place] [address] Dr. Dwight Waters IG # 0.01 10e3/ul Normal 0.00-0.03 [facility] Comment on above: Performed By: #### C MP #### [facility] [address] [place] [address] Dr. Dwight Waters IG % 0.2 % Normal 0.0-0.5 [facility] Comment on above: Performed By: #### C MP #### [facility] [address] [place] [address] Dr. Dwight Waters LYMPH # 1.8 103/ul Normal 1.2-3.8 [facility] Comment on above: Performed By: #### C MP #### [facility] [address] [place] [address] Dr. Dwight Waters Lymphocytes/100 WBC (Bld) 27.9 % Normal 20.5-60.0 [facility] Comment on above: Performed By: #### C MP #### [facility] [address] [place] [address] Dr. Dwight Waters MANUAL DIFF REQ NO Normal [facility] Comment on above: Performed By: #### C MP #### [facility] [address] [place] [address] Dr. Dwight Waters MCH (RBC) [Entitic mass] 28.5 pg Normal 25.9-34.0 [facility] Comment on above: Performed By: #### C MP #### [facility] [address] [place] [address] Dr. Dwight Waters MCHC (RBC) [Mass/Vol] 34.3 g/dL Normal 29.9-35.2 [facility] Comment on above: Performed By: #### C MP #### [facility] [address] [place] [address] Dr. Dwight Waters MCV (RBC) [Entitic vol] 83.2 fL Normal 80.0-94.0 [facility] Comment on above: Performed By: #### C MP #### [facility] [address] [place] [address] Dr. Dwight Waters MONO # 0.5 103/ul Normal 0.3-0.8 [facility] Comment on above: Performed By: #### C MP #### [facility] [address] [place] [address] Dr. Dwight Waters Monocytes/100 WBC (Bld) 8.1 % Normal 1.7-12.0 [facility] Comment on above: Performed By: #### C MP #### [facility] [address] [place] [address] Dr. Dwight Waters NEUT # 3.8 103/ul Normal 1.4-6.5 [facility] Comment on above: Performed By: #### C MP #### [facility] [address] [place] [address] Dr. Dwight Waters Neutrophils/100 WBC (Bld) 60.0 % Normal 43.0-75.0 [facility] Comment on above: Performed By: #### C MP #### [facility] [address] [place] [address] Dr. Dwight Waters Platelet mean volume (Bld) [Entitic vol] 9.2 fL Critically low 9.5-13.5 [facility] Comment on above: Performed By: #### C MP #### [facility] [address] [place] [address] Dr. Dwight Waters PLT 225 103/ul Normal 150-450 [facility] Comment on above: Performed By: #### C MP #### [facility] [address] [place] [address] Dr. Dwight Waters RBC 5.64 106/ul Normal 4.70-6.10 [facility] Comment on above: Performed By: #### C MP #### [facility] [address] [place] [address] Dr. Dwight Waters WBC 6.3 103/ul Normal 4.0-11.0 [facility] Comment on above: Performed By: #### C MP #### [facility] [address] [place] [address] Dr. Dwight Waters GGTon 12-29-2022 Gamma glutamyl transferase [Catalytic activity/Vol] 24 U/L Normal 15-85 [facility] Comment on above: Performed By: #### C MP #### [facility] [address] [place] [address] Dr. Dwight Waters LIPID PROFILEon 12-29-2022 CHOL-HDL RATIO NORM SEE BELOW Normal [facility] Comment on above: Result Comment: 3.3 - 4.4 LOW RISK 4.4 - 7.1 AVERAGE RISK 7.1 - 11.0 MODERATE RISK >11.0 HIGH RISK Performed By: #### U RTPCR #### [facility] [address] [address] [address] Dwight Waters Cholesterol [Mass/Vol] 87 mg/dL Normal <=200 [facility] Comment on above: Performed By: #### U RTPCR #### [facility] [address] [address] [address] Dwight Waters Cholesterol in HDL [Mass/Vol] 44 mg/dL Normal 40-60 [facility] Comment on above: Performed By: #### U RTPCR #### [facility] [address] [address] [address] Dwight Waters Cholesterol in LDL [Mass/Vol] 33.0 mg/dL Normal [facility] Comment on above: Performed By: #### U RTPCR #### [facility] [address] [address] [address] Dwight Waters Cholesterol.total/Ch olesterol in HDL [Mass ratio] 2.0 {ratio} Normal [facility] Comment on above: Performed By: #### U RTPCR #### [facility] [address] [address] [address] Dwight Waters HDL NORMAL > or = 60 mg/dl - LO W CARDIOVASCULAR RISK <40 mg/dl - HIGH CARDIOVASCULAR RISK Normal [facility] Comment on above: Performed By: #### U RTPCR #### [facility] [address] [address] [address] Dwight Waters LDL CALC NORMAL SEE BELOW Normal [facility] Comment on above: Result Comment: <100 mg/dl OPTIMAL 100 - 129 mg/dl NEAR OR ABOVE OPTIMAL 130 - 159 mg/dl BORDERLINE HIGH 160 - 189 mg/dl HIGH >190 mg/dl VERY HIGH Performed By: #### U RTPCR #### [facility] [address] [address] [address] Dwight Waters Triglyceride [Mass/Vol] 50 mg/dL Normal <=150 [facility] Comment on above: Performed By: #### U RTPCR #### [facility] [address] [place] [address] Dr. Dwight Waters VLDL CALC 10.0 mg/dL Normal [facility] Comment on above: Performed By: #### U RTPCR #### [facility] [address] [place] [address] Dr. Dwight Waters MAGNESIUMon 12-29-2022 Magnesium [Mass/Vol] 1.6 mg/dL Critically low 1.8-2.4 [facility] Comment on above: Performed By: #### C BC #### [facility] [address] [place] [address] Dr. Dwight Waters RENAL FUNCTION PANELon 12-29 Albumin [Mass/Vol] 3.9 g/dL Normal 3.4-5.0 [facility] Comment on above: Performed By: #### C BC #### [facility] [address] [place] [address] Dr. Dwight Waters Calcium [Mass/Vol] 9.2 mg/dL Normal 8.5-10.1 [facility] Comment on above: Performed By: #### C BC #### [facility] [address] [place] [address] Dr. Dwight Waters Chloride [Moles/Vol] 109 mmol/L Critically high 98-107 [facility] Comment on above: Performed By: #### C BC #### [facility] [address] [place] [address] Dr. Dwight Waters CO2 [Moles/Vol] 27.0 mmol/L Normal 21.0-32.0 [facility] Comment on above: Performed By: #### C BC #### [facility] [address] [place] [address] Dr. Dwight Waters Creatinine [Mass/Vol] 1.02 mg/dL Normal 0.70-1.30 [facility] Comment on above: Performed By: #### C BC #### [facility] [address] [place] [address] Dr. Dwight Waters EGFR-AF TURKISH >60 Normal >=60 [facility] Comment on above: Performed By: #### C BC #### [facility] [address] [place] [address] Dr. Dwight Waters EGFR-NON AF TURKISH >60 Normal >=60 [facility] Comment on above: Performed By: #### C BC #### [facility] [address] [place] [address] Dr. Dwight Waters Glucose [Mass/Vol] 117 mg/dL Critically high 74-106 [facility] Comment on above: Performed By: #### C BC #### [facility] [address] [place] [address] Dr. Dwight Waters Phosphate [Mass/Vol] 3.2 mg/dL Normal 2.6-4.7 [facility] Comment on above: Performed By: #### C BC #### [facility] [address] [place] [address] Dr. Dwight Waters Potassium [Moles/Vol] 4.1 mmol/L Normal 3.5-5.1 [facility] Comment on above: Performed By: #### C BC #### [facility] [address] [place] [address] Dr. Dwight Waters Sodium [Moles/Vol] 144 mmol/L Normal 136-145 [facility] Comment on above: Performed By: #### C BC #### [facility] [address] [place] [address] Dr. Dwight Waters Urea nitrogen [Mass/Vol] 13.0 mg/dL Normal 7.0-18.0 [facility] Comment on above: Performed By: #### C BC #### [facility] [address] [place] [address] Dr. Dwight Albert 12-29-2022 AST [Catalytic activity/Vol] 21 U/L Normal 15-37 [facility] Comment on above: Performed By: #### C BC #### [facility] [address] [place] [address] Dr. Dwight OLVERAPTon 12-29-2022 ALT [Catalytic activity/Vol] 32 U/L Normal 16-63 [facility] Comment on above: Performed By: #### C BC #### [facility] [address] [place] [address] Dr. Dwight Waters URINE T PROTEIN CREAT RATIOo n 12-29-2022 Protein (U) [Mass/Vol] 14.3 mg/dL Critically high <=12.0 [facility] Comment on above: Performed By: #### U RTPCR #### [facility] [address] [place] [address] Dr. Dwight Waters UR PROT CREAT RAT 0.17 Normal [facility] Comment on above: Performed By: #### U RTPCR #### [facility] [address] [place] [address] Dr. Dwight Waters URINE CREAT 86.58 mg/dL Normal 20.00-300.00 [facility] Comment on above: Performed By: #### U RTPCR #### [facility] [address] [place] [address] Dr. Dwight Waters FK506 (TACROLIMUS) WHOLE BLO ODon 11-06-2022 Tacrolimus (FK506), Blood 4.9 ng/mL Normal 2.0-20.0 [facility] Comment on above: Result Comment: Trou gh (immediately following transplant) 15.0 . Trough (steady state, 2 weeks or more after transplant): 3.0 - 8.0 . Performed by LC-MS/MS technology. Performed By: #### U RTPCR #### [facility] [address] [place] [address] Dr. Dwight Waters ALKALINE PHOSPHAon ALP [Catalytic activity/Vol] 86 U/L Normal 46-116 [facility] Comment on above: Performed By: #### U RTPCR #### [facility] [address] [place] [address] Dr. Dwight Waters BILIRUBIN CONJUGATED (DIRECT )on 11-04-2022 BILI, CONJUGATED 0.2 mg/dL Normal 0.0-0.2 [facility] Comment on above: Performed By: #### U RTPCR #### [facility] [address] [place] [address] Dr. Dwihgt Waters BILIRUBIN TOTALon 11-04-2022 Bilirubin [Mass/Vol] 0.8 mg/dL Normal 0.2-1.0 [facility] Comment on above: Performed By: #### U RTPCR #### [facility] [address] [address] [address] Dwight Waters CBC AUTO DIFFon 11-04-2022 BASO # 0.1 103/ul Normal 0.0-0.1 [facility] Comment on above: Performed By: #### U RTPCR #### [facility] [address] [address] [address] Dwight Waters Basophils/100 WBC (Bld) 0.9 % Normal 0.2-2.0 [facility] Comment on above: Performed By: #### U RTPCR #### [facility] [address] [place] [address] Dr. Dwight Waters EO # 0.2 103/ul Normal 0.0-0.7 [facility] Comment on above: Performed By: #### U RTPCR #### [facility] [address] [address] [address] Dwgiht Waters Eosinophils/100 WBC (Bld) 3.7 % Normal 0.9-7.0 [facility] Comment on above: Performed By: #### U RTPCR #### [facility] [address] [place] [address] Dr. Dwight Waters Erythrocyte distribution width (RBC) [Ratio] 12.9 % Normal 11.0-15.0 [facility] Comment on above: Performed By: #### U RTPCR #### [facility] [address] [place] [address] Dr. Dwight Waters Hematocrit (Bld) [Volume fraction] 48.3 % Normal 42.0-54.0 [facility] Comment on above: Performed By: #### U RTPCR #### [facility] [address] [place] [address] Dr. Dwight Waters Hemoglobin (Bld) [Mass/Vol] 15.6 g/dL Normal 14.0-18.0 [facility] Comment on above: Performed By: #### U RTPCR #### [facility] [address] [place] [address] Dr. Dwight Waters IG # 0.01 10e3/ul Normal 0.00-0.03 [facility] Comment on above: Performed By: #### U RTPCR #### [facility] [address] [place] [address] Dr. Dwight Waters IG % 0.2 % Normal 0.0-0.5 [facility] Comment on above: Performed By: #### U RTPCR #### [facility] [address] [place] [address] Dr. Dwight Waters LYMPH # 1.9 103/ul Normal 1.2-3.8 [facility] Comment on above: Performed By: #### U RTPCR #### [facility] [address] [place] [address] Dr. Dwight Waters Lymphocytes/100 WBC (Bld) 33.0 % Normal 20.5-60.0 [facility] Comment on above: Performed By: #### U RTPCR #### [facility] [address] [place] [address] Dr. Dwight Waters MANUAL DIFF REQ NO Normal [facility] Comment on above: Performed By: #### U RTPCR #### [facility] [address] [place] [address] Dr. Dwight Waters MCH (RBC) [Entitic mass] 27.6 pg Normal 25.9-34.0 [facility] Comment on above: Performed By: #### U RTPCR #### [facility] [address] [place] [address] Dr. Dwight Waters MCHC (RBC) [Mass/Vol] 32.3 g/dL Normal 29.9-35.2 [facility] Comment on above: Performed By: #### U RTPCR #### [facility] [address] [place] [address] Dr. Dwight Waters MCV (RBC) [Entitic vol] 85.5 fL Normal 80.0-94.0 [facility] Comment on above: Performed By: #### U RTPCR #### [facility] [address] [place] [address] Dr. Dwight Waters MONO # 0.5 103/ul Normal 0.3-0.8 [facility] Comment on above: Performed By: #### U RTPCR #### [facility] [address] [address] [address] Dwight Waters Monocytes/100 WBC (Bld) 8.8 % Normal 1.7-12.0 [facility] Comment on above: Performed By: #### U RTPCR #### [facility] [address] [place] [address] Dr. Dwight Waters NEUT # 3.1 103/ul Normal 1.4-6.5 [facility] Comment on above: Performed By: #### U RTPCR #### [facility] [address] [place] [address] Dr. Dwight Waters Neutrophils/100 WBC (Bld) 53.4 % Normal 43.0-75.0 [facility] Comment on above: Performed By: #### U RTPCR #### [facility] [address] [place] [address] Dr. Dwight Waters Platelet mean volume (Bld) [Entitic vol] 9.2 fL Critically low 9.5-13.5 [facility] Comment on above: Performed By: #### U RTPCR #### [facility] [address] [place] [address] Dr. Dwight Waters PLT 255 103/ul Normal 150-450 [facility] Comment on above: Performed By: #### U RTPCR #### [facility] [address] [place] [address] Dr. Dwight Waters RBC 5.65 106/ul Normal 4.70-6.10 [facility] Comment on above: Performed By: #### U RTPCR #### [facility] [address] [place] [address] Dr. Dwight Waters WBC 5.7 103/ul Normal 4.0-11.0 [facility] Comment on above: Performed By: #### U RTPCR #### [facility] [address] [address] [address] Dwight Waters GGTon 11-04-2022 Gamma glutamyl transferase [Catalytic activity/Vol] 22 U/L Normal 15-85 [facility] Comment on above: Performed By: #### U RTPCR #### [facility] [address] [place] [address] Dr. Dwight Waters MAGNESIUMon 11-04-2022 Magnesium [Mass/Vol] 1.8 mg/dL Normal 1.8-2.4 [facility] Comment on above: Performed By: #### U RTPCR #### [facility] [address] [place] [address] Dr. Dwight Waters RENAL FUNCTION PANELon 11-04 Albumin [Mass/Vol] 3.8 g/dL Normal 3.4-5.0 [facility] Comment on above: Performed By: #### U RTPCR #### [facility] [address] [place] [address] Dr. Dwight Waters Calcium [Mass/Vol] 9.3 mg/dL Normal 8.5-10.1 [facility] Comment on above: Performed By: #### U RTPCR #### [facility] [address] [place] [address] Dr. Dwight Waters Chloride [Moles/Vol] 107 mmol/L Normal 98-107 [facility] Comment on above: Performed By: #### U RTPCR #### [facility] [address] [place] [address] Dr. Dwight Waters CO2 [Moles/Vol] 29.2 mmol/L Normal 21.0-32.0 [facility] Comment on above: Performed By: #### U RTPCR #### [facility] [address] [place] [address] Dr. Dwight Waters Creatinine [Mass/Vol] 1.07 mg/dL Normal 0.70-1.30 [facility] Comment on above: Performed By: #### U RTPCR #### [facility] [address] [place] [address] Dr. Dwight Waters EGFR-AF TURKISH >60 Normal >=60 [facility] Comment on above: Performed By: #### U RTPCR #### [facility] [address] [address] [address] Dwight Waters EGFR-NON AF TURKISH >60 Normal >=60 [facility] Comment on above: Performed By: #### U RTPCR #### [facility] [address] [address] [address] Dwight Waters Glucose [Mass/Vol] 106 mg/dL Normal 74-106 [facility] Comment on above: Performed By: #### U RTPCR #### [facility] [address] [address] [address] Dwight Waters Phosphate [Mass/Vol] 2.8 mg/dL Normal 2.6-4.7 [facility] Comment on above: Performed By: #### U RTPCR #### [facility] [address] [place] [address] Dr. Dwight Waters Potassium [Moles/Vol] 4.1 mmol/L Normal 3.5-5.1 [facility] Comment on above: Performed By: #### U RTPCR #### [facility] [address] [place] [address] Dr. Dwight Waters Sodium [Moles/Vol] 143 mmol/L Normal 136-145 [facility] Comment on above: Performed By: #### U RTPCR #### [facility] [address] [place] [address] Dr. Dwight Waters Urea nitrogen [Mass/Vol] 12.0 mg/dL Normal 7.0-18.0 [facility] Comment on above: Performed By: #### U RTPCR #### [facility] [address] [place] [address] Dr. Dwight Albert 11-04-2022 AST [Catalytic activity/Vol] 19 U/L Normal 15-37 [facility] Comment on above: Performed By: #### U RTPCR #### [facility] [address] [place] [address] Dr. Dwight OLVERAPTon 11-04-2022 ALT [Catalytic activity/Vol] 28 U/L Normal 16-63 [facility] Comment on above: Performed By: #### U RTPCR #### [facility] [address] [place] [address] Dr. Dwight Waters URINE T PROTEIN CREAT RATIOo n 11-04-2022 Protein (U) [Mass/Vol] 10.7 mg/dL Normal <=12.0 [facility] Comment on above: Performed By: #### U RTPCR #### [facility] [address] [place] [address] Dr. Dwight Waters UR PROT CREAT RAT 0.13 Normal [facility] Comment on above: Performed By: #### U RTPCR #### [facility] [address] [place] [address] Dr. Dwight Waters URINE CREAT 84.50 mg/dL Normal 20.00-300.00 [facility] Comment on above: Performed By: #### U RTPCR #### [facility] [address] [place] [address] Dr. Dwight Waters FK506 (TACROLIMUS) WHOLE BLO ODon 09-18-2022 Tacrolimus (FK506), Blood 4.6 ng/mL Normal 2.0-20.0 [facility] Comment on above: Result Comment: Trou gh (immediately following transplant) 15.0 . Trough (steady state, 2 weeks or more after transplant): 3.0 - 8.0 . Performed by LC-MS/MS technology. Performed By: #### U RTPCR #### [facility] [address] [place] [address] Dr. Dwight Waters BK VIRUS PCR QUANTon 022 BKV DNA QUANT PCR PLASMA Negative Normal Negative [facility] Comment on above: Result Comment: No B K DNA detected. . The linear range of the assay is 22 - 100,000,000 IU/mL. Performed By: #### U RTPCR #### [facility] [address] [place] [address] Dr. Dwight Waters Log10 BKV DNA Plasma Normal [facility] Comment on above: Performed By: #### U RTPCR #### [facility] [address] [place] [address] Dr. Dwight Waters ALKALINE PHOSPHAon ALP [Catalytic activity/Vol] 92 U/L Normal 46-116 [facility] Comment on above: Performed By: #### U RTPCR #### [facility] [address] [place] [address] Dr. Dwight Waters BILIRUBIN CONJUGATED (DIRECT )on 09-15-2022 BILI, CONJUGATED 0.3 mg/dL Critically high 0.0-0.2 [facility] Comment on above: Performed By: #### U RTPCR #### [facility] [address] [place] [address] Dr. Dwight Waters BILIRUBIN TOTALon 09-15-2022 Bilirubin [Mass/Vol] 1.1 mg/dL Critically high 0.2-1.0 [facility] Comment on above: Performed By: #### U RTPCR #### [facility] [address] [place] [address] Dr. Dwight Waters CBC AUTO DIFFon 09-15-2022 BASO # 0.1 103/ul Normal 0.0-0.1 [facility] Comment on above: Performed By: #### C BC #### [facility] [address] [place] [address] Dr. Dwight Waters Basophils/100 WBC (Bld) 0.8 % Normal 0.2-2.0 [facility] Comment on above: Performed By: #### C BC #### [facility] [address] [place] [address] Dr. Dwight Waters EO # 0.2 103/ul Normal 0.0-0.7 [facility] Comment on above: Performed By: #### C BC #### [facility] [address] [place] [address] Dr. Dwight Waters Eosinophils/100 WBC (Bld) 3.5 % Normal 0.9-7.0 [facility] Comment on above: Performed By: #### C BC #### [facility] [address] [place] [address] Dr. Dwight Waters Erythrocyte distribution width (RBC) [Ratio] 13.0 % Normal 11.0-15.0 [facility] Comment on above: Performed By: #### C BC #### [facility] [address] [place] [address] Dr. Dwight Waters Hematocrit (Bld) [Volume fraction] 50.0 % Normal 42.0-54.0 [facility] Comment on above: Performed By: #### C BC #### [facility] [address] [place] [address] Dr. Dwight Waters Hemoglobin (Bld) [Mass/Vol] 16.0 g/dL Normal 14.0-18.0 [facility] Comment on above: Performed By: #### C BC #### [facility] [address] [place] [address] Dr. Dwight Waters IG # 0.02 10e3/ul Normal 0.00-0.03 [facility] Comment on above: Performed By: #### C BC #### [facility] [address] [place] [address] Dr. Dwight Waters IG % 0.3 % Normal 0.0-0.5 [facility] Comment on above: Performed By: #### C BC #### [facility] [address] [place] [address] Dr. Dwight Waters LYMPH # 1.8 103/ul Normal 1.2-3.8 [facility] Comment on above: Performed By: #### C BC #### [facility] [address] [place] [address] Dr. Dwight Waters Lymphocytes/100 WBC (Bld) 26.5 % Normal 20.5-60.0 [facility] Comment on above: Performed By: #### C BC #### [facility] [address] [place] [address] Dr. Dwight Waters MANUAL DIFF REQ NO Normal [facility] Comment on above: Performed By: #### C BC #### [facility] [address] [place] [address] Dr. Dwight Waters MCH (RBC) [Entitic mass] 28.1 pg Normal 25.9-34.0 [facility] Comment on above: Performed By: #### C BC #### [facility] [address] [address] [address] Dwight Waters MCHC (RBC) [Mass/Vol] 32.0 g/dL Normal 29.9-35.2 [facility] Comment on above: Performed By: #### C BC #### [facility] [address] [address] [address] Dwight Waters MCV (RBC) [Entitic vol] 87.9 fL Normal 80.0-94.0 [facility] Comment on above: Performed By: #### C BC #### [facility] [address] [address] [address] Dwight Waters MONO # 0.5 103/ul Normal 0.3-0.8 [facility] Comment on above: Performed By: #### C BC #### [facility] [address] [place] [address] Dr. Dwight Waters Monocytes/100 WBC (Bld) 8.1 % Normal 1.7-12.0 [facility] Comment on above: Performed By: #### C BC #### [facility] [address] [place] [address] Dr. Dwight Waters NEUT # 4.0 103/ul Normal 1.4-6.5 [facility] Comment on above: Performed By: #### C BC #### [facility] [address] [place] [address] Dr. Dwight Waters Neutrophils/100 WBC (Bld) 60.8 % Normal 43.0-75.0 [facility] Comment on above: Performed By: #### C BC #### [facility] [address] [place] [address] Dr. Dwight Waters Platelet mean volume (Bld) [Entitic vol] 9.4 fL Critically low 9.5-13.5 [facility] Comment on above: Performed By: #### C BC #### [facility] [address] [place] [address] Dr. Dwight Waters PLT 265 103/ul Normal 150-450 [facility] Comment on above: Performed By: #### C BC #### [facility] [address] [place] [address] Dr. Dwight Waters RBC 5.69 106/ul Normal 4.70-6.10 [facility] Comment on above: Performed By: #### C BC #### [facility] [address] [place] [address] Dr. Dwight Waters WBC 6.6 103/ul Normal 4.0-11.0 [facility] Comment on above: Performed By: #### C BC #### [facility] [address] [place] [address] Dr. Dwight Waters GGTon 09-15-2022 Gamma glutamyl transferase [Catalytic activity/Vol] 23 U/L Normal 15-85 [facility] Comment on above: Performed By: #### U RTPCR #### [facility] [address] [place] [address] Dr. Dwight Waters MAGNESIUMon 09-15-2022 Magnesium [Mass/Vol] 1.8 mg/dL Normal 1.8-2.4 [facility] Comment on above: Performed By: #### U RTPCR #### [facility] [address] [place] [address] Dr. Dwight Waters RENAL FUNCTION PANELon 09-15 Albumin [Mass/Vol] 4.1 g/dL Normal 3.4-5.0 [facility] Comment on above: Performed By: #### C BC #### [facility] [address] [place] [address] Dr. Dwight Waters Calcium [Mass/Vol] 9.3 mg/dL Normal 8.5-10.1 [facility] Comment on above: Performed By: #### C BC #### [facility] [address] [place] [address] Dr. Dwight Waters Chloride [Moles/Vol] 107 mmol/L Normal 98-107 [facility] Comment on above: Performed By: #### C BC #### [facility] [address] [place] [address] Dr. Dwight Waters CO2 [Moles/Vol] 25.6 mmol/L Normal 21.0-32.0 [facility] Comment on above: Performed By: #### C BC #### [facility] [address] [place] [address] Dr. Dwight Waters Creatinine [Mass/Vol] 1.01 mg/dL Normal 0.70-1.30 [facility] Comment on above: Performed By: #### C BC #### [facility] [address] [place] [address] Dr. Dwight Waters EGFR-AF TURKISH >60 Normal >=60 [facility] Comment on above: Performed By: #### C BC #### [facility] [address] [place] [address] Dr. Dwight Waters EGFR-NON AF TURKISH >60 Normal >=60 [facility] Comment on above: Performed By: #### C BC #### [facility] [address] [place] [address] Dr. Dwight Waters Glucose [Mass/Vol] 119 mg/dL Critically high 74-[address] [facility] Comment on above: Performed By: #### C BC #### [facility] [address] [place] [address] Dr. Dwight Waters Phosphate [Mass/Vol] 2.8 mg/dL Normal 2.6-4.7 [facility] Comment on above: Performed By: #### C BC #### [facility] [address] [place] [address] Dr. Dwight Waters Potassium [Moles/Vol] 4.0 mmol/L Normal 3.5-5.1 [facility] Comment on above: Performed By: #### C BC #### [facility] [address] [place] [address] Dr. Dwight Waters Sodium [Moles/Vol] 141 mmol/L Normal 136-145 [facility] Comment on above: Performed By: #### C BC #### [facility] [address] [place] [address] Dr. Dwight Waters Urea nitrogen [Mass/Vol] 15.0 mg/dL Normal 7.0-18.0 [facility] Comment on above: Performed By: #### C BC #### [facility] [address] [place] [address] Dr. Dwight Waters SGOTon 09-15-2022 AST [Catalytic activity/Vol] 18 U/L Normal 15-37 [facility] Comment on above: Performed By: #### U RTPCR #### [facility] [address] [place] [address] Dr. Dwight Waters SGPTon 09-15-2022 ALT [Catalytic activity/Vol] 32 U/L Normal 16-63 [facility] Comment on above: Performed By: #### C BC #### [facility] [address] [place] [address] Dr. Dwight Waters URINE T PROTEIN CREAT RATIOo n 09-15-2022 Protein (U) [Mass/Vol] 14.1 mg/dL Critically high <=12.0 [facility] Comment on above: Performed By: #### U RTPCR #### [facility] [address] [place] [address] Dr. Dwight Waters UR PROT CREAT RAT 0.14 Normal [facility] Comment on above: Performed By: #### U RTPCR #### [facility] [address] [place] [address] Dr. Dwight Waters URINE CREAT 98.89 mg/dL Normal 20.00-300.00 [facility] Comment on above: Performed By: #### U RTPCR #### [facility] [address] [place] [address] Dr. Dwight Waters US CAROTID ART BILon [...] MÓNICA JIMENEZ Date: 2022-08-28 13:20 Normal [facility] FK506 (TACROLIMUS) WHOLE BLO ODon 08-17-2022 Tacrolimus (FK506), Blood 9.9 ng/mL Normal 2.0-20.0 [facility] Comment on above: Result Comment: Trou gh (immediately following transplant) 15.0 . Trough (steady state, 2 weeks or more after transplant): 3.0 - 8.0 . Performed by LC-MS/MS technology. Performed By: #### F [id number] #### [facility] [address] [place] [address] Dr. Dwight Waters BK VIRUS PCR QUANTon 022 BKV DNA QUANT PCR PLASMA Negative Normal Negative [facility] Comment on above: Result Comment: No B K DNA detected. . The linear range of the assay is 22 - 100,000,000 IU/mL. Performed By: #### U RTPCR #### [facility] [address] [place] [address] Dr. Dwight Waters Log10 BKV DNA Plasma Normal [facility] Comment on above: Performed By: #### U RTPCR #### [facility] [address] [place] [address] Dr. Dwight Waters ALBUMINon 08-14-2022 Albumin [Mass/Vol] 4.2 g/dL Normal 3.4-5.0 [facility] Comment on above: Performed By: #### F [id number] #### [facility] [address] [place] [address] Dr. Dwight Waters ALKALINE PHOSPHAon ALP [Catalytic activity/Vol] 92 U/L Normal 46-116 [facility] Comment on above: Performed By: #### C BC #### [facility] [address] [place] [address] Dr. Dwight Waters BILIRUBIN CONJUGATED (DIRECT )on 08-14-2022 BILI, CONJUGATED 0.3 mg/dL Critically high 0.0-0.2 [facility] Comment on above: Performed By: #### F [id number] #### [facility] [address] [place] [address] Dr. Dwight Waters BILIRUBIN TOTALon 08-14-2022 Bilirubin [Mass/Vol] 1.5 mg/dL Critically high 0.2-1.0 [facility] Comment on above: Performed By: #### F [id number] #### [facility] [address] [place] [address] Dr. Dwight Waters BUNon 08-14-2022 Urea nitrogen [Mass/Vol] 11.0 mg/dL Normal 7.0-18.0 [facility] Comment on above: Performed By: #### C BC #### [facility] [address] [place] [address] Dr. Dwight Waters CALCIUMon 08-14-2022 Calcium [Mass/Vol] 9.4 mg/dL Normal 8.5-10.1 [facility] Comment on above: Performed By: #### F [id number] #### [facility] [address] [place] [address] Dr. Dwight Waters CBC AUTO DIFFon 08-14-2022 BASO # 0.0 103/ul Normal 0.0-0.1 [facility] Comment on above: Performed By: #### C MP #### [facility] [address] [place] [address] Dr. Dwight Waters Basophils/100 WBC (Bld) 0.5 % Normal 0.2-2.0 [facility] Comment on above: Performed By: #### C MP #### [facility] [address] [place] [address] Dr. Dwight Waters EO # 0.2 103/ul Normal 0.0-0.7 [facility] Comment on above: Performed By: #### C MP #### [facility] [address] [place] [address] Dr. Dwight Waters Eosinophils/100 WBC (Bld) 2.6 % Normal 0.9-7.0 [facility] Comment on above: Performed By: #### C MP #### [facility] [address] [place] [address] Dr. Dwight Wtaers Erythrocyte distribution width (RBC) [Ratio] 13.1 % Normal 11.0-15.0 [facility] Comment on above: Performed By: #### C MP #### [facility] [address] [place] [address] Dr. Dwight Waters Hematocrit (Bld) [Volume fraction] 47.0 % Normal 42.0-54.0 [facility] Comment on above: Performed By: #### C MP #### [facility] [address] [place] [address] Dr. Dwight Waters Hemoglobin (Bld) [Mass/Vol] 15.3 g/dL Normal 14.0-18.0 [facility] Comment on above: Performed By: #### C MP #### [facility] [address] [place] [address] Dr. Dwight Waters IG # 0.01 10e3/ul Normal 0.00-0.03 [facility] Comment on above: Performed By: #### C MP #### [facility] [address] [place] [address] Dr. Dwight Waters IG % 0.1 % Normal 0.0-0.5 [facility] Comment on above: Performed By: #### C MP #### [facility] [address] [place] [address] Dr. Dwight Waters LYMPH # 2.3 103/ul Normal 1.2-3.8 [facility] Comment on above: Performed By: #### C MP #### [facility] [address] [place] [address] Dr. Dwight Waters Lymphocytes/100 WBC (Bld) 29.8 % Normal 20.5-60.0 [facility] Comment on above: Performed By: #### C MP #### [facility] [address] [place] [address] Dr. Dwight Waters MANUAL DIFF REQ NO Normal [facility] Comment on above: Performed By: #### C MP #### [facility] [address] [place] [address] Dr. Dwight Waters MCH (RBC) [Entitic mass] 28.2 pg Normal 25.9-34.0 [facility] Comment on above: Performed By: #### C MP #### [facility] [address] [place] [address] Dr. Dwight Waters MCHC (RBC) [Mass/Vol] 32.6 g/dL Normal 29.9-35.2 [facility] Comment on above: Performed By: #### C MP #### [facility] [address] [address] [address] Dwight Waters MCV (RBC) [Entitic vol] 86.7 fL Normal 80.0-94.0 [facility] Comment on above: Performed By: #### C MP #### [facility] [address] [address] [address] Dwight Waters MONO # 0.7 103/ul Normal 0.3-0.8 [facility] Comment on above: Performed By: #### C MP #### [facility] [address] [address] [address] Dwight Waters Monocytes/100 WBC (Bld) 8.5 % Normal 1.7-12.0 [facility] Comment on above: Performed By: #### C MP #### [facility] [address] [address] [address] Dwight Waters NEUT # 4.5 103/ul Normal 1.4-6.5 [facility] Comment on above: Performed By: #### C MP #### [facility] [address] [address] [address] Dwight Waters Neutrophils/100 WBC (Bld) 58.5 % Normal 43.0-75.0 [facility] Comment on above: Performed By: #### C MP #### [facility] [address] [address] [address] Dwight Waters Platelet mean volume (Bld) [Entitic vol] 9.7 fL Normal 9.5-13.5 [facility] Comment on above: Performed By: #### C MP #### [facility] [address] [address] [address] Dwight Waters PLT 266 103/ul Normal 150-450 [facility] Comment on above: Performed By: #### C MP #### [facility] [address] [address] [address] Dwight Waters RBC 5.42 106/ul Normal 4.70-6.10 [facility] Comment on above: Performed By: #### C MP #### [facility] [address] [place] [address] Dr. Dwight Waters WBC 7.6 103/ul Normal 4.0-11.0 [facility] Comment on above: Performed By: #### C MP #### [facility] [address] [place] [address] Dr. Dwight Waters CHLORIDEon 08-14-2022 Chloride [Moles/Vol] 104 mmol/L Normal 98-107 [facility] Comment on above: Performed By: #### C BC #### [facility] [address] [place] [address] Dr. Dwight Waters CO2on 08-14-2022 CO2 [Moles/Vol] 27.9 mmol/L Normal 21.0-32.0 [facility] Comment on above: Performed By: #### C BC #### [facility] [address] [place] [address] Dr. Dwight Waters CREATININEon 08-14-2022 Creatinine [Mass/Vol] 1.08 mg/dL Normal 0.70-1.30 [facility] Comment on above: Performed By: #### C BC #### [facility] [address] [place] [address] Dr. Dwight Waters EGFR-AF TURKISH >60 Normal >=60 [facility] Comment on above: Performed By: #### C BC #### [facility] [address] [place] [address] Dr. Dwight Waters EGFR-NON AF TURKISH >60 Normal >=60 [facility] Comment on above: Performed By: #### C BC #### [facility] [address] [place] [address] Dr. Dwight Waters GGTon 08-14-2022 Gamma glutamyl transferase [Catalytic activity/Vol] 24 U/L Normal 15-85 [facility] Comment on above: Performed By: #### F [id number] #### [facility] [address] [place] [address] Dr. Dwight Waters GLUCOSE BLOODon 08-14-2022 Glucose [Mass/Vol] 111 mg/dL Critically high 74-[address] [facility] Comment on above: Performed By: #### C BC #### [facility] [address] [place] [address] Dr. Dwight Waters MAGNESIUMon 08-14-2022 Magnesium [Mass/Vol] 1.4 mg/dL Critically low 1.8-2.4 [facility] Comment on above: Performed By: #### C BC #### [facility] [address] [place] [address] Dr. Dwight Waters NAon 08-14-2022 Sodium [Moles/Vol] 140 mmol/L Normal 136-145 [facility] Comment on above: Performed By: #### F [id number] #### [facility] [address] [place] [address] Dr. Dwight Waters PHOSPHORUSon 08-14-2022 Phosphate [Mass/Vol] 3.1 mg/dL Normal 2.6-4.7 [facility] Comment on above: Performed By: #### C BC #### [facility] [address] [place] [address] Dr. Dwight Waters POTASSIUMon 08-14-2022 Potassium [Moles/Vol] 3.5 mmol/L Normal 3.5-5.1 [facility] Comment on above: Performed By: #### C BC #### [facility] [address] [place] [address] Dr. Dwgiht Waters SGOTon 08-14-2022 AST [Catalytic activity/Vol] 17 U/L Normal 15-37 [facility] Comment on above: Performed By: #### F [id number] #### [facility] [address] [place] [address] Dr. Dwight Waters SGPTon 08-14-2022 ALT [Catalytic activity/Vol] 22 U/L Normal 16-63 [facility] Comment on above: Performed By: #### F [id number] #### [facility] [address] [place] [address] Dr. Dwight Waters URINE T PROTEIN CREAT RATIOo n 08-14-2022 Protein (U) [Mass/Vol] 10.7 mg/dL Normal <=12.0 [facility] Comment on above: Performed By: #### F [id number] #### [facility] [address] [place] [address] Dr. Dwight Waters UR PROT CREAT RAT 0.10 Normal [facility] Comment on above: Performed By: #### F [id number] #### [facility] [address] [place] [address] Dr. Dwight Waters URINE CREAT 104.28 mg/dL Normal 20.00-300.00 [facility] Comment on above: Performed By: #### F [id number] #### [facility] [address] [place] [address] Dr. Dwight Waters NEPHROSTOMY TUBE REMOVALon 0 [...] Assisting physician present for entire procedure: yes U [facility] Radiology Study observation (narrative) [facility] FK506 (TACROLIMUS) WHOLE BLO ODon 07-06-2022 Tacrolimus (FK506), Blood 9.5 ng/mL Normal 2.0-20.0 [facility] Comment on above: Result Comment: Trou gh (immediately following transplant) 15.0 . Trough (steady state, 2 weeks or more after transplant): 3.0 - 8.0 . Performed by LC-MS/MS technology. Performed By: #### C MP #### [facility] [address] [place] [address] Dr. Dwight Waters ALBUMINon 07-03-2022 Albumin [Mass/Vol] 3.7 g/dL Normal 3.4-5.0 [facility] Comment on above: Performed By: #### U RTPCR #### [facility] [address] [place] [address] Dr. Dwight Waters ALKALINE PHOSPHAon ALP [Catalytic activity/Vol] 76 U/L Normal 46-116 [facility] Comment on above: Performed By: #### U RTPCR #### [facility] [address] [place] [address] Dr. Dwight Waters BILIRUBIN CONJUGATED (DIRECT )on 07-03-2022 BILI, CONJUGATED 0.3 mg/dL Critically high 0.0-0.2 [facility] Comment on above: Performed By: #### C BC #### [facility] [address] [place] [address] Dr. Dwight Waters BILIRUBIN TOTALon 07-03-2022 Bilirubin [Mass/Vol] 1.4 mg/dL Critically high 0.2-1.0 [facility] Comment on above: Performed By: #### C BC #### [facility] [address] [place] [address] Dr. Dwight Waters BUNon 07-03-2022 Urea nitrogen [Mass/Vol] 15.0 mg/dL Normal 7.0-18.0 [facility] Comment on above: Performed By: #### C BC #### [facility] [address] [place] [address] Dr. Dwight Waters CALCIUMon 07-03-2022 Calcium [Mass/Vol] 9.4 mg/dL Normal 8.5-10.1 [facility] Comment on above: Performed By: #### U RTPCR #### [facility] [address] [place] [address] Dr. Dwight Waters CBC AUTO DIFFon 07-03-2022 BASO # 0.0 103/ul Normal 0.0-0.1 [facility] Comment on above: Performed By: #### U RTPCR #### [facility] [address] [place] [address] Dr. Dwight Waters Basophils/100 WBC (Bld) 0.6 % Normal 0.2-2.0 [facility] Comment on above: Performed By: #### U RTPCR #### [facility] [address] [place] [address] Dr. Dwight Waters EO # 0.2 103/ul Normal 0.0-0.7 [facility] Comment on above: Performed By: #### U RTPCR #### [facility] [address] [place] [address] Dr. Dwihgt Waters Eosinophils/100 WBC (Bld) 3.5 % Normal 0.9-7.0 [facility] Comment on above: Performed By: #### U RTPCR #### [facility] [address] [place] [address] Dr. Dwight Waters Erythrocyte distribution width (RBC) [Ratio] 12.9 % Normal 11.0-15.0 [facility] Comment on above: Performed By: #### U RTPCR #### [facility] [address] [place] [address] Dr. Dwight Waters Hematocrit (Bld) [Volume fraction] 44.2 % Normal 42.0-54.0 [facility] Comment on above: Performed By: #### U RTPCR #### [facility] [address] [place] [address] Dr. Dwight Waters Hemoglobin (Bld) [Mass/Vol] 14.6 g/dL Normal 14.0-18.0 [facility] Comment on above: Performed By: #### U RTPCR #### [facility] [address] [place] [address] Dr. Dwight Waters IG # 0.02 10e3/ul Normal 0.00-0.03 [facility] Comment on above: Performed By: #### U RTPCR #### [facility] [address] [place] [address] Dr. Dwight Waters IG % 0.3 % Normal 0.0-0.5 [facility] Comment on above: Performed By: #### U RTPCR #### [facility] [address] [place] [address] Dr. Dwight Waters LYMPH # 2.0 103/ul Normal 1.2-3.8 [facility] Comment on above: Performed By: #### U RTPCR #### [facility] [address] [place] [address] Dr. Dwight Waters Lymphocytes/100 WBC (Bld) 28.4 % Normal 20.5-60.0 [facility] Comment on above: Performed By: #### U RTPCR #### [facility] [address] [place] [address] Dr. Dwight Waters MANUAL DIFF REQ NO Normal [facility] Comment on above: Performed By: #### U RTPCR #### [facility] [address] [place] [address] Dr. Dwight Waters MCH (RBC) [Entitic mass] 28.6 pg Normal 25.9-34.0 [facility] Comment on above: Performed By: #### U RTPCR #### [facility] [address] [place] [address] Dr. Dwight Waters MCHC (RBC) [Mass/Vol] 33.0 g/dL Normal 29.9-35.2 [facility] Comment on above: Performed By: #### U RTPCR #### [facility] [address] [place] [address] Dr. Dwight Waters MCV (RBC) [Entitic vol] 86.7 fL Normal 80.0-94.0 [facility] Comment on above: Performed By: #### U RTPCR #### [facility] [address] [place] [address] Dr. Dwight Waters MONO # 0.6 103/ul Normal 0.3-0.8 [facility] Comment on above: Performed By: #### U RTPCR #### [facility] [address] [address] [address] Dwight Waters Monocytes/100 WBC (Bld) 9.1 % Normal 1.7-12.0 [facility] Comment on above: Performed By: #### U RTPCR #### [facility] [address] [address] [address] Dwight Waters NEUT # 4.0 103/ul Normal 1.4-6.5 [facility] Comment on above: Performed By: #### U RTPCR #### [facility] [address] [place] [address] Dr. Dwight Waters Neutrophils/100 WBC (Bld) 58.1 % Normal 43.0-75.0 [facility] Comment on above: Performed By: #### U RTPCR #### [facility] [address] [place] [address] Dr. Dwight Waters Platelet mean volume (Bld) [Entitic vol] 9.5 fL Normal 9.5-13.5 [facility] Comment on above: Performed By: #### U RTPCR #### [facility] [address] [place] [address] Dr. Dwight Waters PLT 292 103/ul Normal 150-450 [facility] Comment on above: Performed By: #### U RTPCR #### [facility] [address] [place] [address] Dr. Dwight Waters RBC 5.10 106/ul Normal 4.70-6.10 [facility] Comment on above: Performed By: #### U RTPCR #### [facility] [address] [place] [address] Dr. Dwight Waters WBC 6.9 103/ul Normal 4.0-11.0 [facility] Comment on above: Performed By: #### U RTPCR #### [facility] [address] [place] [address] Dr. Dwight Waters CHLORIDEon 07-03-2022 Chloride [Moles/Vol] 108 mmol/L Critically high 98-107 [facility] Comment on above: Performed By: #### C BC #### [facility] [address] [place] [address] Dr. Dwight Waters CO2on 07-03-2022 CO2 [Moles/Vol] 25.2 mmol/L Normal 21.0-32.0 [facility] Comment on above: Performed By: #### C BC #### [facility] [address] [place] [address] Dr. Dwight Waters CREATININEon 07-03-2022 Creatinine [Mass/Vol] 1.03 mg/dL Normal 0.70-1.30 [facility] Comment on above: Performed By: #### U RTPCR #### [facility] [address] [place] [address] Dr. Dwight Waters EGFR-AF TURKISH >60 Normal >=60 [facility] Comment on above: Performed By: #### U RTPCR #### [facility] [address] [place] [address] Dr. Dwight Waters EGFR-NON AF TURKISH >60 Normal >=60 [facility] Comment on above: Performed By: #### U RTPCR #### [facility] [address] [place] [address] Dr. Dwight Waters GGTon 07-03-2022 Gamma glutamyl transferase [Catalytic activity/Vol] 31 U/L Normal 15-85 [facility] Comment on above: Performed By: #### U RTPCR #### [facility] [address] [place] [address] Dr. Dwight Waters GLUCOSE BLOODon 07-03-2022 Glucose [Mass/Vol] 119 mg/dL Critically high 74-[address] [facility] Comment on above: Performed By: #### U RTPCR #### [facility] [address] [place] [address] Dr. Dwight Waters MAGNESIUMon 07-03-2022 Magnesium [Mass/Vol] 1.4 mg/dL Critically low 1.8-2.4 [facility] Comment on above: Performed By: #### C BC #### [facility] [address] [place] [address] Dr. Dwight Waters NAon 07-03-2022 Sodium [Moles/Vol] 142 mmol/L Normal 136-145 [facility] Comment on above: Performed By: #### C MP #### [facility] [address] [place] [address] Dr. Dwight Waters PHOSPHORUSon 07-03-2022 Phosphate [Mass/Vol] 3.4 mg/dL Normal 2.6-4.7 [facility] Comment on above: Performed By: #### C BC #### [facility] [address] [place] [address] Dr. Dwight Waters POTASSIUMon 07-03-2022 Potassium [Moles/Vol] 4.1 mmol/L Normal 3.5-5.1 [facility] Comment on above: Performed By: #### C BC #### [facility] [address] [place] [address] Dr. Dwight Waters SGOTon 07-03-2022 AST [Catalytic activity/Vol] 14 U/L Critically low 15-37 [facility] Comment on above: Performed By: #### C BC #### [facility] [address] [place] [address] Dr. Dwight Waters SGPTon 07-03-2022 ALT [Catalytic activity/Vol] 25 U/L Normal 16-63 [facility] Comment on above: Performed By: #### C BC #### [facility] [address] [place] [address] Dr. Dwight Waters US KIDNEYSon 07-03-2022 US KIDNEYS Ultrasound kidneys, bilateral HISTORY: Transplant of kidney , pain in the right lower quadrant COMPARISON: None. TECHNIQUE: Transabdominal ultrasound imaging of both kidneys was performed. FINDINGS: The kake kidneys are diffusely echogenic and atrophic with cortical thinning. The right kidney measures 8.3 x 3.5 x 4.07 m and the left measures 9.9 x 3.8 x 3.6 cm. No hydronephrosis of the kake kidneys. There is a renal transplant in [...] stone involving the renal transplant. 2. Atrophic kake kidneys. 3. Normal bladder. Electronically authenticated by: YAAESTEFANIA PIZARRO Date: 2022-07-03 17:22 Normal [facility] CT Abdomen and Pelvis WO con traston 06-27-2022 IMPRESSION: 1. Both kake kidneys are atrophic with improvement in right-sided [...] Adrenals: Adrenal glands are unremarkable. Kidneys: Both kake kidneys are atrophic. Interval improvement in right kake kidney hydronephrosis since May 15, 2022. Status [...] Adrenals: Adrenal glands are unremarkable. Kidneys: Both kake kidneys are atrophic. Interval improvement in right kake kidney hydronephrosis since May 15, 2022. Status [...] aggressive osseous lesions. IMPRESSION IMPRESSION: 1. 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 2. 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 No hydronephrosis. No discrete perinephric collection. 3. Partially imaged postsurgical changes related to prior liver transplant. 4. The bladder is decompressed, limiting evaluation. [facility] Radiology Study observation (narrative) [facility] CT Abdomen and Pelvis WO con trastOrdered By: Gera Lu on 06-27-2022 [facility] Work Phone: CBC AUTO DIFFon 06-18-2022 BASO # 0.0 103/ul Normal 0.0-0.1 [facility] Comment on above: Performed By: #### U RTPCR #### [facility] [address] [place] [address] Dr. Dwight Waters Basophils/100 WBC (Bld) 0.5 % Normal 0.2-2.0 [facility] Comment on above: Performed By: #### U RTPCR #### [facility] [address] [place] [address] Dr. Dwight Waters EO # 0.2 103/ul Normal 0.0-0.7 [facility] Comment on above: Performed By: #### U RTPCR #### [facility] [address] [address] [address] Dwight Waters Eosinophils/100 WBC (Bld) 2.3 % Normal 0.9-7.0 [facility] Comment on above: Performed By: #### U RTPCR #### [facility] [address] [place] [address] Dr. Dwight Waters Erythrocyte distribution width (RBC) [Ratio] 12.9 % Normal 11.0-15.0 [facility] Comment on above: Performed By: #### U RTPCR #### [facility] [address] [place] [address] Dr. Dwight Waters Hematocrit (Bld) [Volume fraction] 41.2 % Critically low 42.0-54.0 [facility] Comment on above: Performed By: #### U RTPCR #### [facility] [address] [place] [address] Dr. Dwight Waters Hemoglobin (Bld) [Mass/Vol] 13.3 g/dL Critically low 14.0-18.0 [facility] Comment on above: Performed By: #### U RTPCR #### [facility] [address] [place] [address] Dr. Dwight Waters IG # 0.04 10e3/ul Critically high 0.00-0.03 [facility] Comment on above: Performed By: #### U RTPCR #### [facility] [address] [place] [address] Dr. Dwight Waters IG % 0.5 % Normal 0.0-0.5 [facility] Comment on above: Performed By: #### U RTPCR #### [facility] [address] [place] [address] Dr. Dwight Waters LYMPH # 2.0 103/ul Normal 1.2-3.8 [facility] Comment on above: Performed By: #### U RTPCR #### [facility] [address] [place] [address] Dr. Dwight Waters Lymphocytes/100 WBC (Bld) 22.9 % Normal 20.5-60.0 [facility] Comment on above: Performed By: #### U RTPCR #### [facility] [address] [place] [address] Dr. Dwight Waters MANUAL DIFF REQ NO Normal [facility] Comment on above: Performed By: #### U RTPCR #### [facility] [address] [place] [address] Dr. Dwight Waters MCH (RBC) [Entitic mass] 28.7 pg Normal 25.9-34.0 [facility] Comment on above: Performed By: #### U RTPCR #### [facility] [address] [place] [address] Dr. Dwight Waters MCHC (RBC) [Mass/Vol] 32.3 g/dL Normal 29.9-35.2 [facility] Comment on above: Performed By: #### U RTPCR #### [facility] [address] [place] [address] Dr. Dwight Waters MCV (RBC) [Entitic vol] 88.8 fL Normal 80.0-94.0 [facility] Comment on above: Performed By: #### U RTPCR #### [facility] [address] [place] [address] Dr. Dwight Waters MONO # 0.8 103/ul Normal 0.3-0.8 [facility] Comment on above: Performed By: #### U RTPCR #### [facility] [address] [place] [address] Dr. Dwight Waters Monocytes/100 WBC (Bld) 9.7 % Normal 1.7-12.0 [facility] Comment on above: Performed By: #### U RTPCR #### [facility] [address] [place] [address] Dr. Dwight Waters NEUT # 5.6 103/ul Normal 1.4-6.5 [facility] Comment on above: Performed By: #### U RTPCR #### [facility] [address] [place] [address] Dr. Dwight Waters Neutrophils/100 WBC (Bld) 64.1 % Normal 43.0-75.0 [facility] Comment on above: Performed By: #### U RTPCR #### [facility] [address] [place] [address] Dr. Dwight Waters Platelet mean volume (Bld) [Entitic vol] 10.0 fL Normal 9.5-13.5 [facility] Comment on above: Performed By: #### U RTPCR #### [facility] [address] [place] [address] Dr. Dwight Waters PLT 270 103/ul Normal 150-450 [facility] Comment on above: Performed By: #### U RTPCR #### [facility] [address] [place] [address] Dr. Dwight Waters RBC 4.64 106/ul Critically low 4.70-6.10 [facility] Comment on above: Performed By: #### U RTPCR #### [facility] [address] [place] [address] Dr. Dwight Waters WBC 8.7 103/ul Normal 4.0-11.0 [facility] Comment on above: Performed By: #### U RTPCR #### [facility] [address] [place] [address] Dr. Dwight Waters CULTURE URINEon 06-18-2022 CULTURE URINE Culture Observations : NO GROWTH. Normal [facility] Comment on above: Performed By: #### U RTPCR #### [facility] [address] [place] [address] Dr. Dwight Waters Covid-19 PCR ([facility])on 05-31 SARS-CoV-2 (COVID-19) RNA ESTELITA+probe Ql (Unsp spec) Not detected Normal NOT DETECTED [facility] Comment on above: Result Comment: When [...] for this test is supported by the [employer] of [employer] and Human Service's declaration that [...] used). Performed By: #### C BC #### [facility] [address] [place] [address] Dr. Dwight Waters ER URINE PROFILEon Bilirubin Ql (U) Negative Normal NEGATIVE [facility] Comment on above: Performed By: #### U RTPCR #### [facility] [address] [place] [address] Dr. Dwight Waters Clarity (U) CLEAR Normal CLEAR [facility] Comment on above: Performed By: #### U RTPCR #### [facility] [address] [place] [address] Dr. Dwight Waters Color (U) YELLOW Normal YELLOW [facility] Comment on above: Performed By: #### U RTPCR #### [facility] [address] [place] [address] Dr. Dwight Waters ERUBERTHA A micrscopic examina tion will be performed if indicated. Normal [facility] Comment on above: Performed By: #### U RTPCR #### [facility] [address] [place] [address] Dr. Dwight Waters Glucose Ql (U) Negative Normal NEGATIVE [facility] Comment on above: Performed By: #### U RTPCR #### [facility] [address] [place] [address] Dr. Dwight Waters Hemoglobin Ql (U) LARGE Abnormal NEGATIVE [facility] Comment on above: Performed By: #### U RTPCR #### [facility] [address] [place] [address] Dr. Dwight Waters Ketones Ql (U) Negative Normal NEGATIVE [facility] Comment on above: Performed By: #### U RTPCR #### [facility] [address] [place] [address] Dr. Dwight Waters LEUKOCYTES TRACE Abnormal NEGATIVE [facility] Comment on above: Performed By: #### U RTPCR #### [facility] [address] [place] [address] Dr. Dwight Waters Nitrite Ql (U) Negative Normal NEGATIVE [facility] Comment on above: Performed By: #### U RTPCR #### [facility] [address] [place] [address] Dr. Dwight Waters pH (U) 6.0 [pH] Normal 5-9 [facility] Comment on above: Performed By: #### U RTPCR #### [facility] [address] [place] [address] Dr. Dwight Waters Protein (U) [Mass/Vol] 30 mg/dL Abnormal NEGATIVE/ TRACE [facility] Comment on above: Performed By: #### U RTPCR #### [facility] [address] [place] [address] Dr. Dwight Waters SPEC GRAVITY >=1.030 Abnormal 1.005-<=1.02 5 [facility] Comment on above: Performed By: #### U RTPCR #### [facility] [address] [place] [address] Dr. Dwight Waters UR MICRO IND INDICATED Normal [facility] Comment on above: Performed By: #### U RTPCR #### [facility] [address] [place] [address] Dr. Dwight Waters Urobilinogen Qn (U) 0.2 {Alyssa'U}/dL Normal 0.2 - 1. 0 [facility] Comment on above: Performed By: #### U RTPCR #### [facility] [address] [place] [address] Dr. Dwight Waters PROF 14(COMP METB)on 022 Albumin [Mass/Vol] 3.7 g/dL Normal 3.4-5.0 [facility] Comment on above: Performed By: #### C MP #### [facility] [address] [place] [address] Dr. Dwight Waters Albumin/Globulin [Mass ratio] 0.9 {ratio} Normal [facility] Comment on above: Performed By: #### C MP #### [facility] [address] [place] [address] Dr. Dwight Waters ALP [Catalytic activity/Vol] 80 U/L Normal 46-116 [facility] Comment on above: Performed By: #### C MP #### [facility] [address] [place] [address] Dr. Dwight Waters ALT [Catalytic activity/Vol] 24 U/L Normal 16-63 [facility] Comment on above: Performed By: #### C MP #### [facility] [address] [place] [address] Dr. Dwight Waters Anion gap [Moles/Vol] 12.9 mmol/L Normal [facility] Comment on above: Performed By: #### C MP #### [facility] [address] [address] [address] Dwight Waters AST [Catalytic activity/Vol] 17 U/L Normal 15-37 [facility] Comment on above: Performed By: #### C MP #### [facility] [address] [address] [address] Dwight Waters Bilirubin [Mass/Vol] 0.8 mg/dL Normal 0.2-1.0 [facility] Comment on above: Performed By: #### C MP #### [facility] [address] [address] [address] Dwight Waters Calcium [Mass/Vol] 9.4 mg/dL Normal 8.5-10.1 [facility] Comment on above: Performed By: #### C MP #### [facility] [address] [address] [address] Dwight Waters Chloride [Moles/Vol] 106 mmol/L Normal 98-107 [facility] Comment on above: Performed By: #### C MP #### [facility] [address] [address] [address] Dwight Waters CO2 [Moles/Vol] 25.3 mmol/L Normal 21.0-32.0 [facility] Comment on above: Performed By: #### C MP #### [facility] [address] [address] [address] Dwight Waters Creatinine [Mass/Vol] 1.29 mg/dL Normal 0.70-1.30 [facility] Comment on above: Performed By: #### C MP #### [facility] [address] [address] [address] Dwight Waters EGFR-AF TURKISH >60 Normal >=60 [facility] Comment on above: Performed By: #### C MP #### [facility] [address] [address] [address] Dwight Waters EGFR-NON AF TURKISH 59 mL/min/1.73m2 Critically low >=60 [facility] Comment on above: Performed By: #### C MP #### [facility] [address] [address] [address] Dwight Waters Globulin (S) [Mass/Vol] 4.2 g/dL Normal [facility] Comment on above: Performed By: #### C MP #### [facility] [address] [address] [address] Dwight Waters Glucose [Mass/Vol] 106 mg/dL Normal 74-106 [facility] Comment on above: Performed By: #### C MP #### [facility] [address] [address] [address] Dwight Waters Potassium [Moles/Vol] 4.2 mmol/L Normal 3.5-5.1 [facility] Comment on above: Performed By: #### C MP #### [facility] [address] [place] [address] Dr. Dwight Waters Protein [Mass/Vol] 7.9 g/dL Normal 6.4-8.2 [facility] Comment on above: Performed By: #### C MP #### [facility] [address] [place] [address] Dr. Dwight Waters Sodium [Moles/Vol] 140 mmol/L Normal 136-145 [facility] Comment on above: Performed By: #### C MP #### [facility] [address] [place] [address] Dr. Dwight Waters Urea nitrogen [Mass/Vol] 22.0 mg/dL Critically high 7.0-18.0 [facility] Comment on above: Performed By: #### C MP #### [facility] [address] [place] [address] Dr. Dwight Waters Urea nitrogen/Creatinine [Mass ratio] 17.1 mg/mg Normal [facility] Comment on above: Performed By: #### C MP #### [facility] [address] [place] [address] Dr. Dwight Waters URINE MICROSCOPIC ONLYon BACTERIA TRACE Abnormal NONE SEEN [facility] Comment on above: Performed By: #### U RTPCR #### [facility] [address] [place] [address] Dr. Dwight Waters Bacteria identified Cx Nom (U) INDICATED Normal [facility] Comment on above: Performed By: #### U RTPCR #### [facility] [address] [place] [address] Dr. Dwight Waters CAST NONE SEEN Normal NONE SEEN [facility] Comment on above: Performed By: #### U RTPCR #### [facility] [address] [place] [address] Dr. Dwight Waters Crystals LM Nom (Urine sed) NONE SEEN Normal NONE SEEN [facility] Comment on above: Performed By: #### U RTPCR #### [facility] [address] [place] [address] Dr. Dwight Waters Epithelial cells LM Ql (Urine sed) NONE SEEN Normal NONE SEEN /RARE [facility] Comment on above: Performed By: #### U RTPCR #### [facility] [address] [place] [address] Dr. Dwight Waters MUCOUS NONE SEEN Normal NONE SEEN [facility] Comment on above: Performed By: #### U RTPCR #### [facility] [address] [place] [address] Dr. Dwight Waters RBC 5-10 Abnormal 0-2 [facility] Comment on above: Performed By: #### U RTPCR #### [facility] [address] [place] [address] Dr. Dwight Waters WBC 10-20 Abnormal NONE SEEN [facility] Comment on above: Performed By: #### U RTPCR #### [facility] [address] [place] [address] Dr. Dwight Waters ALLOSCREEN RECIPIENT (POST T X PRA)on 06-13-2022 AB SPECIFICITY CLASS COMMENT Antibody Specificity testing performed by [employer]. cPRA calculation based on identification of HLA antibody specificities at MFI >2000 and/or presence of CREG antibodies. [facility] Comment on above: Some of the reagents used for testing in the Clinical Histocompatibility Laboratory have yet to be approved by the FDA. Our certification by CLIA to perform high complexity tests allows us to use these reagents in the context of a stringent QC program, and obviates the need for FDA approval.Testing performed by the [facility] Clinical Histocompatibility Laboratory. [facility] number: [id number]. [facility] number: [id number], Director: Carlito Merchant, PhD, D([facility]). ANTIBODY SPECIFICITY INTERPRETATION Detected [facility] CLASS I SPECIFICITIES Not detected [facility] CLASS II SPECIFICITIES Not detected [facility] HLA Ab (S) 0 % 0 [facility] EXTRA MICROon 06-13-2022 [facility] URINE CULTUREOrdered By: Jah Upotn on 06-13-2022 Bacteria identified Cx Nom (Unsp spec) Growth [facility] Bacteria identified Cx Nom (Unsp spec) 10,000-50,000 CFU/mL Mixed skin shimon [facility] Comment on above: Multiple bacterial m orphotypes present. Suggest appropriate recollection if clinically indicated. [facility] CBC,PLATELETSon 06-12-2022 Erythrocyte distribution width (RBC) [Ratio] 13.0 % 10.9 - 14.3 % [facility] Hematocrit (Bld) [Volume fraction] 43.2 % 39.6 - 48.8 % [facility] Hemoglobin (Bld) [Mass/Vol] 13.9 g/dL 13.4 - 16.8 g/dL [facility] Interpretation and review of laboratory results Normal [facility] MCH (RBC) [Entitic mass] 28.7 pg 26.1 - 33.3 pg [facility] MCHC (RBC) [Mass/Vol] 32.2 g/dL 31.9 - 36.5 g/dL [facility] MCV (RBC) [Entitic vol] 89.1 fL 79.0 - 94.5 fL [facility] Platelet mean volume (Bld) [Entitic vol] 10.5 fL 8.7 - 12.3 fL [facility] Platelets (Bld) [#/Vol] 269 10*3/uL 146 - 337 K/uL [facility] RBC (Bld) [#/Vol] 4.85 10*6/uL [facility] WBC (Bld) [#/Vol] 7.68 10*3/uL 3.73 - 10. 10 K/uL [facility] CHEM 7 (LYTES,BUN,CREA,GLUC) on 06-12-2022 Anion gap [Moles/Vol] 14 mmol/L 7 - 17 mmol/L [facility] Chloride [Moles/Vol] 106 mmol/L 98 - 10 8 mmol/L [facility] CO2 [Moles/Vol] 25 mmol/L 21 - 31 mmol/L [facility] Creatinine [Mass/Vol] 1.26 mg/dL 0.70 - 1.30 mg/dL [facility] GFR/1.73 sq M.predicted CKD-EPI (S/P/Bld) [Vol rate/Area] 69 >=60 mL/min/1.73m 2 [facility] Comment on above: Reported eGFR is bas ed on the CKD-EPI 2020 equation using creatinine, age, and sex. Glucose [Mass/Vol] 83 mg/dL 70 - 99 mg/dL [facility] Osmolality Calc [Osmolality] 295 [facility] Potassium [Moles/Vol] 3.8 mmol/L 3.5 - 5.0 mmol/L [facility] Sodium [Moles/Vol] 141 mmol/L 135 - 145 mmol/L [facility] Urea nitrogen [Mass/Vol] 18 mg/dL 7 - 25 mg/dL [facility] Urea nitrogen/Creatinine [Mass ratio] 14 mg/mg [facility] GGTon 06-12-2022 Gamma glutamyl transferase [Catalytic activity/Vol] 20 U/L 8 - 64 U/L [facility] HEMOGLOBIN [id number] By: Link [employer] on 06-12-2022 Average glucose Estimated from glycated hemoglobin (Bld) [Mass/Vol] 126 mg/dL [facility] HbA1c (Bld) [Mass fraction] 6.0 % High 4.7 - 5.6 % [facility] Interpretation and review of laboratory results Abnormal [facility] HEPATIC FUNCTION PANELon Albumin [Mass/Vol] 4.3 g/dL 3.5 - 5.0 g/dL [facility] ALP [Catalytic activity/Vol] 78 U/L 32 - 126 U/L [facility] ALT [Catalytic activity/Vol] 12 U/L 10 - 52 U/L [facility] AST [Catalytic activity/Vol] 16 U/L 10 - 39 U/L [facility] Bilirubin [Mass/Vol] 1.0 mg/dL <1.5 [facility] Bilirubin.direct [Mass/Vol] 0.2 mg/dL <0.3 [facility] Protein [Mass/Vol] 7.5 g/dL 6.4 - 8.3 g/dL [facility] No Panel Informationon 06-12 Interpretation and review of laboratory results Normal [facility] PTH INTACTOrdered By: Marli Lizarraga on 06-12-2022 Interpretation and review of laboratory results Abnormal [facility] Parathyrin.intact [Mass/Vol] 79.7 pg/mL High 14.0 - 72.0 pg/mL [facility] URINALYSIS REFLEX TO CULTURE PERFORMABLEon 06-12-2022 Appearance (U) Clear Clear [facility] Bacteria LM Ql (Urine sed) ABSENT ABSENT [facility] Color (U) Yellow Yellow [facility] Epithelial cells.squamous LM Ql (Urine sed) 1/hpf = 1+ 1/hpf = 1+, 2-5/hpf = 2+, 0/hpf = 0+, ABSENT [facility] Glucose Test strip (U) [Mass/Vol] Negative Negative [facility] Interpretation and review of laboratory results Abnormal [facility] Ketones (U) [Mass/Vol] Trace Abnormal Negative [facility] Leukocyte esterase Test strip Ql (U) Small Abnormal Negative [facility] Nitrite Ql (U) Negative Negative [facility] pH (U) 5.5 [pH] 5.0 - 7.0 [facility] Protein (U) [Mass/Vol] 30 mg/dL Abnormal Negative [facility] RBC (U) [#/Vol] Trace Abnormal Negative [facility] RBC LM.HPF (Urine sed) [#/Area] 0-2 0 - 2 /HPF [facility] Specific gravity (U) [Rel density] 1.026 [facility] Urobilinogen (U) [Mass/Vol] 0.2 E.U./dL 0.2 E.U/dL, 1.0 E.U/dL [facility] WBC LM.HPF (Urine sed) [#/Area] 10-20 Abnormal 0 - 5 /HPF [facility] URINE PROTEIN/CREA RATIO, RA NDOMon 06-12-2022 Creatinine (24H U) [Mass/Vol] 231.68 mg/dL [facility] Protein Unsp time (U) [Mass/Vol] 49 mg/dL [facility] Protein/Creatinine (U) [Mass ratio] 0.211 mg/g [facility] FK506 (TACROLIMUS) WHOLE BLO ODon 06-09-2022 Tacrolimus (FK506), Blood 9.8 ng/mL Normal 2.0-20.0 [facility] Comment on above: Result Comment: Trou gh (immediately following transplant) 15.0 . Trough (steady state, 2 weeks or more after transplant): 3.0 - 8.0 . Performed by LC-MS/MS technology. Performed By: #### U RTPCR #### [facility] [address] [place] [address] Dr. Dwight Waters ALBUMINon 06-06-2022 Albumin [Mass/Vol] 3.8 g/dL Normal 3.4-5.0 [facility] Comment on above: Performed By: #### C MP #### [facility] [address] [place] [address] Dr. Dwight Waters ALKALINE PHOSPHAon ALP [Catalytic activity/Vol] 82 U/L Normal 46-116 [facility] Comment on above: Performed By: #### C MP #### [facility] [address] [place] [address] Dr. Dwight Waters BILIRUBIN CONJUGATED (DIRECT )on 06-06-2022 BILI, CONJUGATED 0.2 mg/dL Normal 0.0-0.2 [facility] Comment on above: Performed By: #### C BC #### [facility] [address] [place] [address] Dr. Dwight Waters BILIRUBIN TOTALon 06-06-2022 Bilirubin [Mass/Vol] 1.0 mg/dL Normal 0.2-1.0 [facility] Comment on above: Performed By: #### C BC #### [facility] [address] [place] [address] Dr. Dwight Waters BUNon 06-06-2022 Urea nitrogen [Mass/Vol] 18.0 mg/dL Normal 7.0-18.0 [facility] Comment on above: Performed By: #### C BC #### [facility] [address] [place] [address] Dr. Dwight Waters CALCIUMon 06-06-2022 Calcium [Mass/Vol] 9.4 mg/dL Normal 8.5-10.1 [facility] Comment on above: Performed By: #### C MP #### [facility] [address] [place] [address] Dr. Dwight Waters CBC AUTO DIFFon 06-06-2022 BASO # 0.1 103/ul Normal 0.0-0.1 [facility] Comment on above: Performed By: #### U RTPCR #### [facility] [address] [place] [address] Dr. Dwight Waters Basophils/100 WBC (Bld) 0.8 % Normal 0.2-2.0 [facility] Comment on above: Performed By: #### U RTPCR #### [facility] [address] [place] [address] Dr. Dwight Waters EO # 0.3 103/ul Normal 0.0-0.7 [facility] Comment on above: Performed By: #### U RTPCR #### [facility] [address] [place] [address] Dr. Dwight Waters Eosinophils/100 WBC (Bld) 3.3 % Normal 0.9-7.0 [facility] Comment on above: Performed By: #### U RTPCR #### [facility] [address] [place] [address] Dr. Dwight Waters Erythrocyte distribution width (RBC) [Ratio] 12.4 % Normal 11.0-15.0 [facility] Comment on above: Performed By: #### U RTPCR #### [facility] [address] [place] [address] Dr. Dwight Waters Hematocrit (Bld) [Volume fraction] 45.1 % Normal 42.0-54.0 [facility] Comment on above: Performed By: #### U RTPCR #### [facility] [address] [place] [address] Dr. Dwight Waters Hemoglobin (Bld) [Mass/Vol] 14.4 g/dL Normal 14.0-18.0 [facility] Comment on above: Performed By: #### U RTPCR #### [facility] [address] [place] [address] Dr. Dwight Waters IG # 0.01 10e3/ul Normal 0.00-0.03 [facility] Comment on above: Performed By: #### U RTPCR #### [facility] [address] [place] [address] Dr. Dwight Waters IG % 0.1 % Normal 0.0-0.5 [facility] Comment on above: Performed By: #### U RTPCR #### [facility] [address] [place] [address] Dr. Dwight Waters LYMPH # 2.2 103/ul Normal 1.2-3.8 [facility] Comment on above: Performed By: #### U RTPCR #### [facility] [address] [place] [address] Dr. Dwight Waters Lymphocytes/100 WBC (Bld) 30.0 % Normal 20.5-60.0 [facility] Comment on above: Performed By: #### U RTPCR #### [facility] [address] [place] [address] Dr. Dwight Waters MANUAL DIFF REQ NO Normal [facility] Comment on above: Performed By: #### U RTPCR #### [facility] [address] [place] [address] Dr. Dwight Waters MCH (RBC) [Entitic mass] 28.2 pg Normal 25.9-34.0 [facility] Comment on above: Performed By: #### U RTPCR #### [facility] [address] [place] [address] Dr. Dwight Waters MCHC (RBC) [Mass/Vol] 31.9 g/dL Normal 29.9-35.2 [facility] Comment on above: Performed By: #### U RTPCR #### [facility] [address] [place] [address] Dr. Dwight Waters MCV (RBC) [Entitic vol] 88.3 fL Normal 80.0-94.0 [facility] Comment on above: Performed By: #### U RTPCR #### [facility] [address] [place] [address] Dr. Dwight Waters MONO # 0.6 103/ul Normal 0.3-0.8 [facility] Comment on above: Performed By: #### U RTPCR #### [facility] [address] [place] [address] Dr. Dwight Waters Monocytes/100 WBC (Bld) 8.2 % Normal 1.7-12.0 [facility] Comment on above: Performed By: #### U RTPCR #### [facility] [address] [place] [address] Dr. Dwight Waters NEUT # 4.3 103/ul Normal 1.4-6.5 [facility] Comment on above: Performed By: #### U RTPCR #### [facility] [address] [place] [address] Dr. Dwight Waters Neutrophils/100 WBC (Bld) 57.6 % Normal 43.0-75.0 [facility] Comment on above: Performed By: #### U RTPCR #### [facility] [address] [place], [place] [id number] Dr. Dwight Waters Platelet mean volume (Bld) [Entitic vol] 9.7 fL Normal 9.5-13.5 [facility] Comment on above: Performed By: #### U RTPCR #### [facility] [address] [place] [address] Dr. Dwight Waters PLT 297 103/ul Normal 150-450 [facility] Comment on above: Performed By: #### U RTPCR #### [facility] [address] [place] [address] Dr. Dwight Waters RBC 5.11 106/ul Normal 4.70-6.10 [facility] Comment on above: Performed By: #### U RTPCR #### [facility] [address] [place] [address] Dr. Dwight Waters WBC 7.5 103/ul Normal 4.0-11.0 [facility] Comment on above: Performed By: #### U RTPCR #### [facility] [address] [place] [address] Dr. Dwight Waters CHLORIDEon 06-06-2022 Chloride [Moles/Vol] 107 mmol/L Normal 98-107 [facility] Comment on above: Performed By: #### C BC #### [facility] [address] [place] [address] Dr. Dwight Waters CO2on 06-06-2022 CO2 [Moles/Vol] 27.4 mmol/L Normal 21.0-32.0 [facility] Comment on above: Performed By: #### C BC #### [facility] [address] [place] [address] Dr. Dwight Waters CREATININEon 06-06-2022 Creatinine [Mass/Vol] 1.20 mg/dL Normal 0.70-1.30 [facility] Comment on above: Performed By: #### C BC #### [facility] [address] [place] [address] Dr. Dwight Waters EGFR-AF TURKISH >60 Normal >=60 [facility] Comment on above: Performed By: #### C BC #### [facility] [address] [address] [address] Dwight Waters EGFR-NON AF TURKISH >60 Normal >=60 [facility] Comment on above: Performed By: #### C BC #### [facility] [address] [place] [address] Dr. Dwight Waters GGTon 06-06-2022 Gamma glutamyl transferase [Catalytic activity/Vol] 29 U/L Normal 15-85 [facility] Comment on above: Performed By: #### C BC #### [facility] [address] [place] [address] Dr. Dwight Waters GLUCOSE BLOODon 06-06-2022 Glucose [Mass/Vol] 112 mg/dL Critically high 74-[address] [facility] Comment on above: Performed By: #### C BC #### [facility] [address] [place] [address] Dr. Dwight Waters MAGNESIUMon 06-06-2022 Magnesium [Mass/Vol] 1.3 mg/dL Critically low 1.8-2.4 [facility] Comment on above: Performed By: #### C MP #### [facility] [address] [place] [address] Dr. Dwight Waters NAon 06-06-2022 Sodium [Moles/Vol] 141 mmol/L Normal 136-145 [facility] Comment on above: Performed By: #### C MP #### [facility] [address] [place] [address] Dr. Dwight Waters PHOSPHORUSon 06-06-2022 Phosphate [Mass/Vol] 3.1 mg/dL Normal 2.6-4.7 [facility] Comment on above: Performed By: #### C MP #### [facility] [address] [place] [address] Dr. Dwight Waters POTASSIUMon 06-06-2022 Potassium [Moles/Vol] 4.3 mmol/L Normal 3.5-5.1 [facility] Comment on above: Performed By: #### C BC #### [facility] [address] [place] [address] Dr. Dwight Waters SGOTon 06-06-2022 AST [Catalytic activity/Vol] 16 U/L Normal 15-37 [facility] Comment on above: Performed By: #### C BC #### [facility] [address], [place] [address] Dr. [facility] ALT [Catalytic activity/Vol] 50 U/L Normal 16-63 [facility] Comment on above: Performed By: #### C BC #### [facility] [address] [id number] Dwight Waters Bacteria identified Cx Nom ( Bld)on 05-21-2022 Bacteria identified Cx Nom (Unsp spec) NO GROWTH DAY 5 OF 5 [facility] Results may be compr omised due to volume of BACT\ALERT bottle exceeding 10mLs . The optimal blood volume is 8-10 mls per aerobic/anaerobic blood culture bottle. [facility] CALCIUMon 05-20-2022 Calcium [Mass/Vol] 9.1 mg/dL 8.6 - 10. 5 mg/dL [facility] CBC,PLATELETSon 05-20-2022 Erythrocyte distribution width (RBC) [Ratio] 12.5 % 10.9 - 14.3 % [facility] Hematocrit (Bld) [Volume fraction] 37.1 % Low 39.6 - 48.8 % [facility] Hemoglobin (Bld) [Mass/Vol] 12.3 g/dL Low 13.4 - 16.8 g/dL [facility] Interpretation and review of laboratory results Abnormal [facility] MCH (RBC) [Entitic mass] 28.9 pg 26.1 - 33.3 pg [facility] MCHC (RBC) [Mass/Vol] 33.2 g/dL 31.9 - 36.5 g/dL [facility] MCV (RBC) [Entitic vol] 87.3 fL 79.0 - 94.5 fL [facility] Platelet mean volume (Bld) [Entitic vol] 9.9 fL 8.7 - 12.3 fL [facility] Platelets (Bld) [#/Vol] 234 10*3/uL 146 - 337 K/uL [facility] RBC (Bld) [#/Vol] 4.25 10*6/uL Low [facility] WBC (Bld) [#/Vol] 6.31 10*3/uL 3.73 - 10. 10 K/uL [facility] CHEM 7 (LYTES,BUN,CREA,GLUC) on 05-20-2022 Anion gap [Moles/Vol] 15 mmol/L 7 - 17 mmol/L [facility] Chloride [Moles/Vol] 111 mmol/L High 98 - 10 8 mmol/L [facility] CO2 [Moles/Vol] 22 mmol/L 21 - 31 mmol/L [facility] Creatinine [Mass/Vol] 1.10 mg/dL 0.70 - 1.30 mg/dL [facility] GFR/1.73 sq M.predicted CKD-EPI (S/P/Bld) [Vol rate/Area] 81 >=60 mL/min/1.73m 2 [facility] Comment on above: Reported eGFR is bas ed on the CKD-EPI 2020 equation using creatinine, age, and sex. Glucose [Mass/Vol] 92 mg/dL 70 - 99 mg/dL [facility] Interpretation and review of laboratory results Abnormal [facility] Osmolality Calc [Osmolality] 302 [facility] Potassium [Moles/Vol] 4.4 mmol/L 3.5 - 5.0 mmol/L [facility] Sodium [Moles/Vol] 144 mmol/L 135 - 145 mmol/L [facility] Urea nitrogen [Mass/Vol] 18 mg/dL 7 - 25 mg/dL [facility] Urea nitrogen/Creatinine [Mass ratio] 16 mg/mg [facility] MAGNESIUMon 05-20-2022 Interpretation and review of laboratory results Abnormal [facility] Magnesium [Mass/Vol] 1.5 mg/dL Low 1.6 - 2 .6 mg/dL [facility] No Panel Informationon 05-20 Interpretation and review of laboratory results Normal [facility] PHOSPHATE, INORGANICon 05-20 Phosphate [Mass/Vol] 3.3 mg/dL 2.2 - 4 .6 mg/dL [facility] RF Unspecified body region V iews [...] projections of kidneys, ureters, and bladder. FINDINGS: Improvement Engineer images: Improvement Engineer radiographs of the abdomen reveal a nonobstructive [...] Contrast refluxes up the ureter to the kake right kidney that is grossly normal appearing. Contrast begins to fill the bladder that is grossly normal. Left kidney is not appreciated during this exam. RADIOLOGY Lziz Campos MD - 05/20/2022 EXAM: XR FLUORO NEPHROSTOGRAM, 05/20/2022 12:49 PM COMPARISON: Renal ultrasound transplant scan on 05/16/2022 CLINICAL INDICATIONS: please evaluate distal ureter to identify obstruction if present. TECHNIQUE: Nephrostomy tube in the right lower quadrant renal transplant was accessed and injected with water-soluble contrast. Spot images were taken in multiple projections of kidneys, ureters, and bladder. FINDINGS: Improvement Engineer images: Improvement Engineer radiographs of the abdomen reveal a nonobstructive [...] Contrast refluxes up the ureter to the kake right kidney that is grossly normal appearing. [...] reviewed and approved this report. [facility] Radiology Study observation (narrative) [facility] RF Unspecified body region V iews during surgeryOrdered By: Lizz Campos on 05-20-2022 [facility] Work Phone: CALCIUMon 05-19-2022 Calcium [Mass/Vol] 9.2 mg/dL 8.6 - 10. 5 mg/dL [facility] Calcium [Mass/Vol] 8.6 mg/dL 8.6 - 10. 5 mg/dL [facility] CBC,PLATELETSon 05-19-2022 Erythrocyte distribution width (RBC) [Ratio] 12.4 % 10.9 - 14.3 % [facility] Hematocrit (Bld) [Volume fraction] 38.0 % Low 39.6 - 48.8 % [facility] Hemoglobin (Bld) [Mass/Vol] 12.0 g/dL Low 13.4 - 16.8 g/dL [facility] Interpretation and review of laboratory results Abnormal [facility] MCH (RBC) [Entitic mass] 28.6 pg 26.1 - 33.3 pg [facility] MCHC (RBC) [Mass/Vol] 31.6 g/dL Low 31.9 - 36.5 g/dL [facility] MCV (RBC) [Entitic vol] 90.5 fL 79.0 - 94.5 fL [facility] Platelet mean volume (Bld) [Entitic vol] 9.7 fL 8.7 - 12.3 fL [facility] Platelets (Bld) [#/Vol] 199 10*3/uL 146 - 337 K/uL [facility] RBC (Bld) [#/Vol] 4.20 10*6/uL Low [facility] WBC (Bld) [#/Vol] 6.81 10*3/uL 3.73 - 10. 10 K/uL [facility] CHEM 7 (LYTES,BUN,CREA,GLUC) on 05-19-2022 Anion gap [Moles/Vol] 13 mmol/L 7 - 17 mmol/L [facility] Chloride [Moles/Vol] 105 mmol/L 98 - 10 8 mmol/L [facility] CO2 [Moles/Vol] 30 mmol/L 21 - 31 mmol/L [facility] Creatinine [Mass/Vol] 1.39 mg/dL High 0.70 - 1.30 mg/dL [facility] GFR/1.73 sq M.predicted CKD-EPI (S/P/Bld) [Vol rate/Area] 61 >=60 mL/min/1.73m 2 [facility] Comment on above: Reported eGFR is bas ed on the CKD-EPI 2021 equation using creatinine, age, and sex. Glucose [Mass/Vol] 121 mg/dL High 70 - 99 mg/dL [facility] Interpretation and review of laboratory results [facility] Osm[facility]ality Calc [Osmolality] [address] [facility] Potassium [Moles/Vol] 3.8 mmol/L 3.5 - 5.0 mmol/L [facility] Sodium [Moles/Vol] 144 mmol/L 135 - 145 mmol/L [facility] Urea nitrogen [Mass/Vol] 18 mg/dL 7 - 25 mg/dL [facility] Urea nitrogen/Creatinine [Mass ratio] 13 mg/mg [facility] Anion gap [Moles/Vol] 15 mmol/L 7 - 17 mmol/L [facility] Chloride [Moles/Vol] 106 mmol/L 98 - 10 8 mmol/L [facility] CO2 [Moles/Vol] 24 mmol/L 21 - 31 mmol/L [facility] Creatinine [Mass/Vol] 1.46 mg/dL High 0.70 - 1.30 mg/dL [facility] GFR/1.73 sq M.predicted CKD-EPI (S/P/Bld) [Vol rate/Area] 58 Low >=60 mL/min/1.73m 2 [facility] Comment on above: Reported eGFR is bas ed on the CKD-EPI 2021 equation using creatinine, age, and sex. Glucose [Mass/Vol] 103 mg/dL High 70 - 99 mg/dL [facility] Interpretation and review of laboratory results Abnormal [facility] Osmolality Calc [Osmolality] [address] [facility] Potassium [Moles/Vol] 3.9 mmol/L 3.5 - 5.0 mmol/L [facility] Sodium [Moles/Vol] 141 mmol/L 135 - 145 mmol/L [facility] Urea nitrogen [Mass/Vol] 21 mg/dL 7 - 25 mg/dL [facility] Urea nitrogen/Creatinine [Mass ratio] 14 mg/mg [facility] MAGNESIUMon 05-19-2022 Magnesium [Mass/Vol] 2.0 mg/dL 1.6 - 2 .6 mg/dL [facility] Magnesium [Mass/Vol] 1.7 mg/dL 1.6 - 2 .6 mg/dL [facility] No Panel Informationon 05-19 Interpretation and review of laboratory results Normal [facility] Interpretation and review of laboratory results Normal [facility] PHOSPHATE, INORGANICon 05-19 Phosphate [Mass/Vol] 3.0 mg/dL 2.2 - 4 .6 mg/dL [facility] Phosphate [Mass/Vol] 2.7 mg/dL 2.2 - 4 .6 mg/dL [facility] CALCIUMon 05-18-2022 Calcium [Mass/Vol] 9.1 mg/dL 8.6 - 10. 5 mg/dL [facility] CBC,PLATELETSon 05-18-2022 Erythrocyte distribution width (RBC) [Ratio] 12.5 % 10.9 - 14.3 % [facility] Hematocrit (Bld) [Volume fraction] 37.3 % Low 39.6 - 48.8 % [facility] Hemoglobin (Bld) [Mass/Vol] 11.9 g/dL Low 13.4 - 16.8 g/dL [facility] Interpretation and review of laboratory results Abnormal [facility] MCH (RBC) [Entitic mass] 28.9 pg 26.1 - 33.3 pg [facility] MCHC (RBC) [Mass/Vol] 31.9 g/dL 31.9 - 36.5 g/dL [facility] MCV (RBC) [Entitic vol] 90.5 fL 79.0 - 94.5 fL [facility] Platelet mean volume (Bld) [Entitic vol] 10.1 fL 8.7 - 12.3 fL [facility] Platelets (Bld) [#/Vol] 189 10*3/uL 146 - 337 K/uL [facility] RBC (Bld) [#/Vol] 4.12 10*6/uL Low [facility] WBC (Bld) [#/Vol] 10.19 10*3/uL High 3.73 - 10 .10 K/uL [facility] CHEM 7 (LYTES,BUN,CREA,GLUC) on 05-18-2022 Anion gap [Moles/Vol] 13 mmol/L 7 - 17 mmol/L [facility] Chloride [Moles/Vol] 102 mmol/L 98 - 10 8 mmol/L [facility] CO2 [Moles/Vol] 26 mmol/L 21 - 31 mmol/L [facility] Creatinine [Mass/Vol] 1.91 mg/dL High 0.70 - 1.30 mg/dL [facility] GFR/1.73 sq M.predicted CKD-EPI (S/P/Bld) [Vol rate/Area] 42 Low >=60 mL/min/1.73m 2 [facility] Comment on above: Reported eGFR is bas ed on the CKD-EPI 2020 equation using creatinine, age, and sex. Glucose [Mass/Vol] 158 mg/dL High 70 - 99 mg/dL [facility] Osmolality Calc [Osmolality] 297 [facility] Potassium [Moles/Vol] 4.0 mmol/L 3.5 - 5.0 mmol/L [facility] Sodium [Moles/Vol] 137 mmol/L 135 - 145 mmol/L [facility] Urea nitrogen [Mass/Vol] 30 mg/dL High 7 - 25 mg/dL [facility] Urea nitrogen/Creatinine [Mass ratio] 16 mg/mg [facility] CHEM 7 (LYTES,BUN,CREA,GLUC) Ordered By: Tamiko Thapa on 05-18-2022 Anion gap [Moles/Vol] 13 mmol/L 7 - 17 mmol/L [facility] Chloride [Moles/Vol] 104 mmol/L 98 - 10 8 mmol/L [facility] CO2 [Moles/Vol] 26 mmol/L 21 - 31 mmol/L [facility] Creatinine [Mass/Vol] 2.96 mg/dL High 0.70 - 1.30 mg/dL [facility] GFR/1.73 sq M.predicted CKD-EPI (S/P/Bld) [Vol rate/Area] 25 Low >=60 mL/min/1.73m 2 [facility] Comment on above: Reported eGFR is bas ed on the CKD-EPI 2020 equation using creatinine, age, and sex. Glucose [Mass/Vol] 136 mg/dL High 70 - 99 mg/dL [facility] Interpretation and review of laboratory results Abnormal [facility] Osmolality Calc [Osmolality] 304 [facility] Potassium [Moles/Vol] 4.2 mmol/L 3.5 - 5.0 mmol/L [facility] Sodium [Moles/Vol] 139 mmol/L 135 - 145 mmol/L [facility] Urea nitrogen [Mass/Vol] 41 mg/dL High 7 - 25 mg/dL [facility] Urea nitrogen/Creatinine [Mass ratio] 14 mg/mg [facility] MAGNESIUMon 05-18-2022 Magnesium [Mass/Vol] 2.2 mg/dL 1.6 - 2 .6 mg/dL [facility] Interpretation and review of laboratory results Normal [facility] Magnesium [Mass/Vol] 1.7 mg/dL 1.6 - 2 .6 mg/dL [facility] No Panel Informationon 05-18 Interpretation and review of laboratory results Abnormal [facility] Interpretation and review of laboratory results Normal [facility] PHOSPHATE, INORGANICon 05-18 Phosphate [Mass/Vol] 2.0 mg/dL Low 2.2 - 4 .6 mg/dL [facility] Interpretation and review of laboratory results Normal [facility] Phosphate [Mass/Vol] 2.8 mg/dL 2.2 - 4 .6 mg/dL [facility] PT,INR,PTTon 05-18-2022 aPTT Coag (PPP) [Time] 31.0 s [facility] INR Coag (Bld) [Relative time] 1.1 {INR} [facility] Interpretation and review of laboratory results Abnormal [facility] PT Coag (PPP) [Time] 14.4 s High [facility] URINE CULTUREOrdered By: Sylvia Campos on 05-18-2022 Bacteria identified Cx Nom (Unsp spec) No Growth [facility] CBC,PLATELETSon 05-17-2022 Erythrocyte distribution width (RBC) [Ratio] 12.8 % 10.9 - 14.3 % [facility] Hematocrit (Bld) [Volume fraction] 42.8 % 39.6 - 48.8 % [facility] Hemoglobin (Bld) [Mass/Vol] 13.3 g/dL Low 13.4 - 16.8 g/dL [facility] Interpretation and review of laboratory results Abnormal [facility] MCH (RBC) [Entitic mass] 28.9 pg 26.1 - 33.3 pg [facility] MCHC (RBC) [Mass/Vol] 31.1 g/dL Low 31.9 - 36.5 g/dL [facility] MCV (RBC) [Entitic vol] 92.8 fL 79.0 - 94.5 fL [facility] Platelet mean volume (Bld) [Entitic vol] 10.3 fL 8.7 - 12.3 fL [facility] Platelets (Bld) [#/Vol] 188 10*3/uL 146 - 337 K/uL [facility] RBC (Bld) [#/Vol] 4.61 10*6/uL [facility] WBC (Bld) [#/Vol] 16.61 10*3/uL High 3.73 - 10 .10 K/uL [facility] CHEM 7 (LYTES,BUN,CREA,GLUC) Ordered By: Kaylah Mc on 05-17-2022 Anion gap [Moles/Vol] 15 mmol/L 7 - 17 mmol/L [facility] Chloride [Moles/Vol] 103 mmol/L 98 - 10 8 mmol/L [facility] CO2 [Moles/Vol] 23 mmol/L 21 - 31 mmol/L [facility] Creatinine [Mass/Vol] 5.95 mg/dL High 0.70 - 1.30 mg/dL [facility] GFR/1.73 sq M.predicted CKD-EPI (S/P/Bld) [Vol rate/Area] 11 Low >=60 mL/min/1.73m 2 [facility] Comment on above: Reported eGFR is bas ed on the CKD-EPI 2020 equation using creatinine, age, and sex. Glucose [Mass/Vol] 165 mg/dL High 70 - 99 mg/dL [facility] Interpretation and review of laboratory results Abnormal [facility] Osmolality Calc [Osmolality] 305 [facility] Potassium [Moles/Vol] 4.6 mmol/L 3.5 - 5.0 mmol/L [facility] Sodium [Moles/Vol] 136 mmol/L 135 - 145 mmol/L [facility] Urea nitrogen [Mass/Vol] 52 mg/dL High 7 - 25 mg/dL [facility] Urea nitrogen/Creatinine [Mass ratio] 9 mg/mg [facility] CHEM 7 (LYTES,BUN,CREA,GLUC) Ordered By: Kehinde Gutierrez on 05-17-2022 Anion gap [Moles/Vol] 24 mmol/L High 7 - 17 mmol/L [facility] Chloride [Moles/Vol] 100 mmol/L 98 - 10 8 mmol/L [facility] CO2 [Moles/Vol] 16 mmol/L Low 21 - 31 mmol/L [facility] Creatinine [Mass/Vol] 8.08 mg/dL High 0.70 - 1.30 mg/dL [facility] GFR/1.73 sq M.predicted CKD-EPI (S/P/Bld) [Vol rate/Area] 7 Low >=60 mL/min/1.73m 2 [facility] Comment on above: Reported eGFR is bas ed on the CKD-EPI 2020 equation using creatinine, age, and sex. Glucose [Mass/Vol] 164 mg/dL High 70 - 99 mg/dL [facility] Interpretation and review of laboratory results Abnormal [facility] Osmolality Calc [Osmolality] 305 [facility] Potassium [Moles/Vol] 5.0 mmol/L 3.5 - 5.0 mmol/L [facility] Sodium [Moles/Vol] 135 mmol/L 135 - 145 mmol/L [facility] Urea nitrogen [Mass/Vol] 56 mg/dL High 7 - 25 mg/dL [facility] Urea nitrogen/Creatinine [Mass ratio] 7 mg/mg [facility] LAVENDER TOP TUBEon 05-17-20 [facility] MAGNESIUMon 05-17-2022 Interpretation and review of laboratory results Normal [facility] Magnesium [Mass/Vol] 1.8 mg/dL 1.6 - 2 .6 mg/dL [facility] Interpretation and review of laboratory results Normal [facility] Magnesium [Mass/Vol] 1.6 mg/dL 1.6 - 2 .6 mg/dL [facility] No Panel Informationon 05-17 [facility] PHOSPHATE, INORGANICon 05-17 Interpretation and review of laboratory results Abnormal [facility] Phosphate [Mass/Vol] 4.9 mg/dL High 2.2 - 4 .6 mg/dL [facility] PT,INR,PTTon 05-17-2022 aPTT Coag (PPP) [Time] 33.0 s [facility] INR Coag (Bld) [Relative time] 1.3 {INR} High [facility] Interpretation and review of laboratory results Abnormal [facility] PT Coag (PPP) [Time] 15.7 s High [facility] Portable XR Chest Viewson IMPRESSION: No acute [...] IMPRESSION IMPRESSION: No acute findings. [facility] Radiology Study observation (narrative) [facility] Portable XR Chest ViewsOrder ed By: David Sanz on 05-17-2022 [facility] Work Phone: URINALYSISOrdered By: Michael patel Ma on 05-17-2022 Appearance (U) Cloudy Abnormal Clear [facility] Comment on above: Results may be inacc urate due to color interference. Clinical correlation recommended. Bacteria LM Ql (Urine sed) ABSENT ABSENT [facility] Color (U) Red Abnormal Yellow [facility] Comment on above: Results may be inacc urate due to color interference. Clinical correlation recommended. Epithelial cells.squamous LM Ql (Urine sed) ABSENT 1/hpf = 1+, 2-5/hpf = 2+, 0/hpf = 0+, ABSENT [facility] Glucose Test strip (U) [Mass/Vol] Negative Negative [facility] Comment on above: Results may be inacc urate due to color interference. Clinical correlation recommended. Interpretation and review of laboratory results Abnormal [facility] Ketones (U) [Mass/Vol] Trace Abnormal Negative [facility] Comment on above: Results may be inacc urate due to color interference. Clinical correlation recommended. Leukocyte esterase Test strip Ql (U) Large Abnormal Negative [facility] Comment on above: Results may be inacc urate due to color interference. Clinical correlation recommended. Nitrite Ql (U) Negative Negative [facility] Comment on above: Results may be inacc urate due to color interference. Clinical correlation recommended. pH (U) 5.0 [pH] 5.0 - 7.0 [facility] Comment on above: Results may be inacc urate due to color interference. Clinical correlation recommended. Protein (U) [Mass/Vol] mg/dL Abnormal Negative [facility] Comment on above: Results may be inacc urate due to color interference. Clinical correlation recommended. RBC (U) [#/Vol] Large Abnormal Negative [facility] Comment on above: Results may be inacc urate due to color interference. Clinical correlation recommended. RBC LM.HPF (Urine sed) [#/Area] /[HPF] Abnormal 0 - 2 /HPF [facility] Specific gravity (U) [Rel density] 1.016 [facility] Comment on above: Results may be inacc urate due to color interference. Clinical correlation recommended. Urobilinogen (U) [Mass/Vol] 0.2 E.U./dL 0.2 E.U/dL, 1.0 E.U/dL [facility] Comment on above: Results may be inacc urate due to color interference. Clinical correlation recommended. WBC LM.HPF (Urine sed) [#/Area] /[HPF] Abnormal 0 - 5 /HPF [facility] URINE CULTUREOrdered By: Tyler Tiwari on 05-17-2022 Bacteria identified Cx Nom (Unsp spec) No Growth [facility] CBC,PLATELETSon 05-16-2022 Erythrocyte distribution width (RBC) [Ratio] 12.9 % 10.9 - 14.3 % [facility] Hematocrit (Bld) [Volume fraction] 46.5 % 39.6 - 48.8 % [facility] Hemoglobin (Bld) [Mass/Vol] 14.7 g/dL 13.4 - 16.8 g/dL [facility] Interpretation and review of laboratory results Abnormal [facility] MCH (RBC) [Entitic mass] 28.3 pg 26.1 - 33.3 pg [facility] MCHC (RBC) [Mass/Vol] 31.6 g/dL Low 31.9 - 36.5 g/dL [facility] MCV (RBC) [Entitic vol] 89.6 fL 79.0 - 94.5 fL [facility] Platelet mean volume (Bld) [Entitic vol] 10.3 fL 8.7 - 12.3 fL [facility] Platelets (Bld) [#/Vol] 188 10*3/uL 146 - 337 K/uL [facility] RBC (Bld) [#/Vol] 5.19 10*6/uL [facility] WBC (Bld) [#/Vol] 12.55 10*3/uL High 3.73 - 10 .10 K/uL [facility] CHEM 7 (LYTES,BUN,CREA,GLUC) Ordered By: Alma Pena on 05-16-2022 Anion gap [Moles/Vol] 14 mmol/L 7 - 17 mmol/L [facility] Chloride [Moles/Vol] 103 mmol/L 98 - 10 8 mmol/L [facility] CO2 [Moles/Vol] 22 mmol/L 21 - 31 mmol/L [facility] Creatinine [Mass/Vol] 6.09 mg/dL High 0.70 - 1.30 mg/dL [facility] GFR/1.73 sq M.predicted CKD-EPI (S/P/Bld) [Vol rate/Area] 10 Low >=60 mL/min/1.73m 2 [facility] Comment on above: Reported eGFR is bas ed on the CKD-EPI 2020 equation using creatinine, age, and sex. Glucose [Mass/Vol] 134 mg/dL High 70 - 99 mg/dL [facility] Interpretation and review of laboratory results Abnormal [facility] Osmolality Calc [Osmolality] 298 [facility] Potassium [Moles/Vol] 4.9 mmol/L 3.5 - 5.0 mmol/L [facility] Sodium [Moles/Vol] 134 mmol/L Low 135 - 145 mmol/L [facility] Comment on above: Results inconsistent with previous results Urea nitrogen [Mass/Vol] 49 mg/dL High 7 - 25 mg/dL [facility] Urea nitrogen/Creatinine [Mass ratio] 8 mg/mg [facility] CHEM 7 (LYTES,BUN,CREA,GLUC) on 05-16-2022 Anion gap [Moles/Vol] 17 mmol/L 7 - 17 mmol/L [facility] Chloride [Moles/Vol] 106 mmol/L 98 - 10 8 mmol/L [facility] CO2 [Moles/Vol] 22 mmol/L 21 - 31 mmol/L [facility] Creatinine [Mass/Vol] 5.23 mg/dL High 0.70 - 1.30 mg/dL [facility] GFR/1.73 sq M.predicted CKD-EPI (S/P/Bld) [Vol rate/Area] 13 Low >=60 mL/min/1.73m 2 [facility] Comment on above: Reported eGFR is bas ed on the CKD-EPI 2020 equation using creatinine, age, and sex. Glucose [Mass/Vol] 116 mg/dL High 70 - 99 mg/dL [facility] Interpretation and review of laboratory results Abnormal [facility] Osmolality Calc [Osmolality] 305 [facility] Potassium [Moles/Vol] 4.6 mmol/L 3.5 - 5.0 mmol/L [facility] Sodium [Moles/Vol] 140 mmol/L 135 - 145 mmol/L [facility] Urea nitrogen [Mass/Vol] 42 mg/dL High 7 - 25 mg/dL [facility] Urea nitrogen/Creatinine [Mass ratio] 8 mg/mg [facility] EXTRA MICROon 05-16-2022 [facility] LT BLUE TOP TUBEon 2 [facility] LYTES (NA, K, CL) - URINE - RANDOMon 05-16-2022 Chloride (24H U) [Moles/Vol] 68 mmol/L [facility] Potassium (24H U) [Moles/Vol] 36.7 mmol/L [facility] Sodium (24H U) [Moles/Vol] 55 mmol/L [facility] The reference range has not been established for random urine specimens. The test result should be integrated into the clinical context for interpretation. [facility] MAGNESIUMon 05-16-2022 Interpretation and review of laboratory results Normal [facility] Magnesium [Mass/Vol] 1.7 mg/dL 1.6 - 2 .6 mg/dL [facility] NOVEL CORONAVIRUS PCROrdered By: Edson Candelario on 05-16-2022 SARS-CoV-2 (COVID-19) RNA ESTELITA+probe Ql (Unsp spec) Not detected NOT DETECTED [facility] Comment on above: [facility] Negative results [...] for use by authorized laboratories. [facility] No Panel Informationon 05-16 [facility] OSMOLALITY, URINEon 05-16-20 Interpretation and review of laboratory results Normal [facility] Osmolality (U) [Osmolality] 320 mosm/kg [facility] The reference range has not been established for random urine specimens. The test result should be integrated into the clinical context for interpretation. [facility] PROCALCITONINon 05-16-2022 Interpretation and review of laboratory results Normal [facility] Procalcitonin [Mass/Vol] 0.18 ng/mL <0.50 [facility] Comment on above: Procalcitonin is an [...] and trend procalcitonin in various clinical settings. [email or web address] Two common cutoffs associated with bacterial infections are as follows. Respiratory tract infections: >0.25 ng/mL Sepsis/septic shock: >0.5 ng/mL Procalcitonin should not be used alone as a diagnostic tool, however. All procalcitonin results should be interpreted in association with the patients clinical condition and all laboratory findings. [facility] PT,INR,PTTon 05-16-2022 aPTT Coag (PPP) [Time] 30.3 s [facility] INR Coag (Bld) [Relative time] 1.1 {INR} [facility] Interpretation and review of laboratory results Normal [facility] PT Coag (PPP) [Time] 14.1 s [facility] SARS-CoV-2 (COVID-19) RNA NA A+probe Ql (Unsp spec)Ordered By: Edson Candelario on 05-16-2022 Interpretation and review of laboratory results Normal [facility] TACROLIMUS LEVEL, TROUGH (IN E DRUG LEVEL)Ordered By: Mariama Nick on 05-16-2022 Interpretation and review of laboratory results Normal [facility] Tacrolimus (Bld) [Mass/Vol] 4.1 ng/mL Bone Marrow Transplant: 4.0-12.0, Therapeutic: 5.0-15.[address] [facility] Method performed is a chemiluminescent microparticle immunoasssay on the [employer] Analyst i2000. The range is based on experience at [facility] and users should be aware that target concentrations vary widely depending on concomitant therapy, time post-transplant, and desired degree of immunosuppression. [facility] URINE PROTEIN/CREA RATIO, RA Smiley 05-16-2022 Creatinine (24H U) [Mass/Vol] 59.82 mg/dL [facility] Protein Unsp time (U) [Mass/Vol] 111 mg/dL [facility] Protein/Creatinine (U) [Mass ratio] 1.856 mg/g [facility] US for transplanted kidney dina [...] flow in the transplant kidney. [facility] Radiology Study observation (narrative) [facility] US for transplanted kidney l imitedOrdered By: Rosendo Matute on 05-16-2022 [facility] Work Phone: CBC AND ELECTRONIC DIFFon Basophils (Bld) [#/Vol] 10*3/uL 0.00 - 0.09 K/uL [facility] Basophils/100 WBC (Bld) 0.2 % [facility] Differential cell count method Nom (Bld) Electronic Differential [facility] Eosinophils (Bld) [#/Vol] 10*3/uL 0.00 - 0.48 K/uL [facility] Eosinophils/100 WBC (Bld) 0.0 % [facility] Erythrocyte distribution width (RBC) [Ratio] 12.8 % 10.9 - 14.3 % [facility] Hematocrit (Bld) [Volume fraction] 46.0 % 39.6 - 48.8 % [facility] Hemoglobin (Bld) [Mass/Vol] 14.6 g/dL 13.4 - 16.8 g/dL [facility] Immature granulocytes (Bld) [#/Vol] 0.07 10*3/uL <=0.08 [facility] Immature granulocytes/100 WBC (Bld) 0.4 % [facility] Interpretation and review of laboratory results Abnormal [facility] Lymphocytes (Bld) [#/Vol] 1.49 10*3/uL 0.83 - 3.57 K/uL [facility] Lymphocytes/100 WBC (Bld) 9.4 % [facility] MCH (RBC) [Entitic mass] 28.2 pg 26.1 - 33.3 pg [facility] MCHC (RBC) [Mass/Vol] 31.7 g/dL Low 31.9 - 36.5 g/dL [facility] MCV (RBC) [Entitic vol] 89.0 fL 79.0 - 94.5 fL [facility] Monocytes (Bld) [#/Vol] 1.45 10*3/uL High 0.24 - 0.93 K/uL [facility] Monocytes/100 WBC (Bld) 9.2 % [facility] Neutrophils (Bld) [#/Vol] 12.77 10*3/uL High 1.57 - 6.19 K/uL [facility] Nucleated RBC/100 WBC (Bld) [Ratio] 0.0 % <=0.2 /100 WBC [facility] Platelet mean volume (Bld) [Entitic vol] 9.9 fL 8.7 - 12.3 fL [facility] Platelets (Bld) [#/Vol] 250 10*3/uL 146 - 337 K/uL [facility] RBC (Bld) [#/Vol] 5.17 10*6/uL [facility] Segmented neutrophils/100 WBC (Bld) 80.8 % [facility] WBC (Bld) [#/Vol] 15.81 10*3/uL High 3.73 - 10 .10 K/uL [facility] CBC AUTO DIFFon 05-15-2022 BASO # 0.0 103/ul Normal 0.0-0.1 [facility] Comment on above: Performed By: #### C BC #### [facility] [address] [address] [address] Dwight Waters Basophils/100 WBC (Bld) 0.3 % Normal 0.2-2.0 [facility] Comment on above: Performed By: #### C BC #### [facility] [address] [address] [address] Dwight Waters EO # 0.1 103/ul Normal 0.0-0.7 [facility] Comment on above: Performed By: #### C BC #### [facility] [address] [place] [address] Dr. Dwight Waters Eosinophils/100 WBC (Bld) 0.8 % Critically low 0.9-7.0 [facility] Comment on above: Performed By: #### C BC #### [facility] [address] [place] [address] Dr. Dwight Waters Erythrocyte distribution width (RBC) [Ratio] 12.7 % Normal 11.0-15.0 [facility] Comment on above: Performed By: #### C BC #### [facility] [address] [place] [address] Dr. Dwight Waters Hematocrit (Bld) [Volume fraction] 43.5 % Normal 42.0-54.0 [facility] Comment on above: Performed By: #### C BC #### [facility] [address] [place] [address] Dr. Dwight Waters Hemoglobin (Bld) [Mass/Vol] 14.4 g/dL Normal 14.0-18.0 [facility] Comment on above: Performed By: #### C BC #### [facility] [address] [place] [address] Dr. Dwight Waters IG # 0.02 10e3/ul Normal 0.00-0.03 [facility] Comment on above: Performed By: #### C BC #### [facility] [address] [place] [address] Dr. Dwight Waters IG % 0.2 % Normal 0.0-0.5 [facility] Comment on above: Performed By: #### C BC #### [facility] [address] [place] [address] Dr. Dwight Waters LYMPH # 1.5 103/ul Normal 1.2-3.8 [facility] Comment on above: Performed By: #### C BC #### [facility] [address] [place] [address] Dr. Dwight Waters Lymphocytes/100 WBC (Bld) 12.5 % Critically low 20.5-60.0 [facility] Comment on above: Performed By: #### C BC #### [facility] [address] [place] [address] Dr. Dwight Waters MANUAL DIFF REQ NO Normal [facility] Comment on above: Performed By: #### C BC #### [facility] [address] [place] [address] Dr. Dwight Waters MCH (RBC) [Entitic mass] 28.6 pg Normal 25.9-34.0 [facility] Comment on above: Performed By: #### C BC #### [facility] [address] [place] [address] Dr. Dwight Waters MCHC (RBC) [Mass/Vol] 33.1 g/dL Normal 29.9-35.2 [facility] Comment on above: Performed By: #### C BC #### [facility] [address] [place] [address] Dr. Dwight Waters MCV (RBC) [Entitic vol] 86.3 fL Normal 80.0-94.0 [facility] Comment on above: Performed By: #### C BC #### [facility] [address] [place] [address] Dr. Dwight Waters MONO # 1.0 103/ul Critically high 0.3-0.8 [facility] Comment on above: Performed By: #### C BC #### [facility] [address] [place] [address] Dr. Dwight Waters Monocytes/100 WBC (Bld) 8.2 % Normal 1.7-12.0 [facility] Comment on above: Performed By: #### C BC #### [facility] [address] [place] [address] Dr. Dwight Waters NEUT # 9.1 103/ul Critically high 1.4-6.5 [facility] Comment on above: Performed By: #### C BC #### [facility] [address] [place] [address] Dr. Dwight Waters Neutrophils/100 WBC (Bld) 78.0 % Critically high 43.0-75.0 [facility] Comment on above: Performed By: #### C BC #### [facility] [address] [address] [address] Dwight Waters Platelet mean volume (Bld) [Entitic vol] 9.8 fL Normal 9.5-13.5 [facility] Comment on above: Performed By: #### C BC #### [facility] [address] [address] [address] Dwight Waters PLT 251 103/ul Normal 150-450 [facility] Comment on above: Performed By: #### C BC #### [facility] [address] [address] [address] Dwight Waters RBC 5.04 106/ul Normal 4.70-6.10 [facility] Comment on above: Performed By: #### C BC #### [facility] [address] [address] [address] Dwight Waters WBC 11.6 103/ul Critically high 4.0-11.0 [facility] Comment on above: Performed By: #### C BC #### [facility] [address] [address] [address] Dwight Waters CHEM 6 (LYTES, BUN CREA)on 0 05-15-2022 Anion gap [Moles/Vol] 12 mmol/L 7 - 17 mmol/L [facility] Chloride [Moles/Vol] 105 mmol/L 98 - 10 8 mmol/L [facility] CO2 [Moles/Vol] 26 mmol/L 21 - 31 mmol/L [facility] Creatinine [Mass/Vol] 2.85 mg/dL High 0.70 - 1.30 mg/dL [facility] GFR/1.73 sq M.predicted CKD-EPI (S/P/Bld) [Vol rate/Area] 26 Low >=60 mL/min/1.73m 2 [facility] Comment on above: Reported eGFR is bas ed on the CKD-EPI 2020 equation using creatinine, age, and sex. Potassium [Moles/Vol] 4.6 mmol/L 3.5 - 5.0 mmol/L [facility] Sodium [Moles/Vol] 138 mmol/L 135 - 145 mmol/L [facility] Urea nitrogen [Mass/Vol] 32 mg/dL High 7 - 25 mg/dL [facility] Urea nitrogen/Creatinine [Mass ratio] 11 mg/mg [facility] CT ABD/PELVIS WO CONon 05-15 CT [...] transplanted kidney with moderate right-sided hydronephrosis. Atrophic kake kidneys with moderate right-sided hydronephrosis. Multiple nonobstructive [...] transplanted kidney with moderate right-sided hydronephrosis. Atrophic kake kidneys with moderate right-sided hydronephrosis. Multiple nonobstructive right renal calculi measuring up to 8 mm. FOLLOW-UP: Follow-up as clinically indicated. Electronically authenticated by: LYNDSAY JEAN Date: 2022-05-15 05:04 Normal [facility] Covid-19 PCR ([facility])on 04-30 SARS-CoV-2 (COVID-19) RNA ESTELITA+probe Ql (Unsp spec) Not detected Normal NOT DETECTED [facility] Comment on above: Result Comment: When [...] for this test is supported by the [place] of [employer] and [employer] Service's declaration that [...] used). Performed By: #### U RTPCR #### [facility] [address] [place] [address] Dr. Dwight Waters GLUCOSEon 05-15-2022 Glucose [Mass/Vol] 141 mg/dL High 70 - 99 mg/dL [facility] GOLD TOP TUBEon 05-15-2022 [facility] HEPATIC FUNCTION PANELon Albumin [Mass/Vol] 4.3 g/dL 3.5 - 5.0 g/dL [facility] ALP [Catalytic activity/Vol] 85 U/L 32 - 126 U/L [facility] ALT [Catalytic activity/Vol] 13 U/L 10 - 52 U/L [facility] AST [Catalytic activity/Vol] 15 U/L 10 - 39 U/L [facility] Bilirubin [Mass/Vol] 0.8 mg/dL <1.5 [facility] Bilirubin.direct [Mass/Vol] 0.2 mg/dL <0.3 [facility] Interpretation and review of laboratory results Normal [facility] Protein [Mass/Vol] 7.3 g/dL 6.4 - 8.3 g/dL [facility] LIPASEon 05-15-2022 Lipase [Catalytic activity/Vol] 8 U/L Low 11 - 82 U/L [facility] No Panel Informationon 05-15 Interpretation and review of laboratory results Abnormal [facility] PROF 14(COMP METB)on 022 Albumin [Mass/Vol] 3.8 g/dL Normal 3.4-5.0 [facility] Comment on above: Performed By: #### U RTPCR #### [facility] [address] [address] [address] Dwight Waters Albumin/Globulin [Mass ratio] 1.1 {ratio} Normal [facility] Comment on above: Performed By: #### U RTPCR #### [facility] [address] [address] [address] Dwight Waters ALP [Catalytic activity/Vol] 92 U/L Normal 46-116 [facility] Comment on above: Performed By: #### U RTPCR #### [facility] [address] [place] [address] Dr. Dwight Waters ALT [Catalytic activity/Vol] 25 U/L Normal 16-63 [facility] Comment on above: Performed By: #### U RTPCR #### [facility] [address] [place] [address] Dr. Dwight Waters Anion gap [Moles/Vol] 14.6 mmol/L Normal [facility] Comment on above: Performed By: #### U RTPCR #### [facility] [address] [place] [address] Dr. Dwight Waters AST [Catalytic activity/Vol] 17 U/L Normal 15-37 [facility] Comment on above: Performed By: #### U RTPCR #### [facility] [address] [place] [address] Dr. Dwight Waters Bilirubin [Mass/Vol] 0.6 mg/dL Normal 0.2-1.0 [facility] Comment on above: Performed By: #### U RTPCR #### [facility] [address] [place] [address] Dr. Dwight Waters Calcium [Mass/Vol] 9.9 mg/dL Normal 8.5-10.1 [facility] Comment on above: Performed By: #### U RTPCR #### [facility] [address] [place] [address] Dr. Dwight Waters Chloride [Moles/Vol] 106 mmol/L Normal 98-107 [facility] Comment on above: Performed By: #### U RTPCR #### [facility] [address] [place] [address] Dr. Dwight Waters CO2 [Moles/Vol] 24.2 mmol/L Normal 21.0-32.0 [facility] Comment on above: Performed By: #### U RTPCR #### [facility] [address] [place] [address] Dr. Dwight Waters Creatinine [Mass/Vol] 1.58 mg/dL Critically high 0.70-1.30 [facility] Comment on above: Performed By: #### U RTPCR #### [facility] [address] [place] [address] Dr. Dwight Waters EGFR-AF TURKISH 56 mL/min/1.73m2 Critically low >=60 [facility] Comment on above: Performed By: #### U RTPCR #### [facility] [address] [place] [address] Dr. Dwight Waters EGFR-NON AF TURKISH 46 mL/min/1.73m2 Critically low >=60 [facility] Comment on above: Performed By: #### U RTPCR #### [facility] [address] [place] [address] Dr. Dwight Waters Globulin (S) [Mass/Vol] 3.5 g/dL Normal [facility] Comment on above: Performed By: #### U RTPCR #### [facility] [address] [place] [address] Dr. Dwight Waters Glucose [Mass/Vol] 162 mg/dL Critically high 74-[address] [facility] Comment on above: Performed By: #### U RTPCR #### [facility] [address] [place] [address] Dr. Dwight Waters Potassium [Moles/Vol] 3.8 mmol/L Normal 3.5-5.1 [facility] Comment on above: Performed By: #### U RTPCR #### [facility] [address] [place] [address] Dr. Dwight Waters Protein [Mass/Vol] 7.3 g/dL Normal 6.4-8.2 [facility] Comment on above: Performed By: #### U RTPCR #### [facility] [address] [address] [address] Dwight Waters Sodium [Moles/Vol] 141 mmol/L Normal 136-145 [facility] Comment on above: Performed By: #### U RTPCR #### [facility] [address] [address] [address] Dwight Waters Urea nitrogen [Mass/Vol] 22.0 mg/dL Critically high 7.0-18.0 [facility] Comment on above: Performed By: #### U RTPCR #### [facility] [address] [address] [address] Dwight Waters Urea nitrogen/Creatinine [Mass ratio] 13.9 mg/mg Normal [facility] Comment on above: Performed By: #### U RTPCR #### [facility] [address] [address] [address] Dwight Waters Portable XR Chest Viewson [...] IMPRESSION: No acute cardiopulmonary disease [facility] Radiology Study observation (narrative) [facility] Portable XR Chest ViewsOrder ed By: Vladislav Omer on 05-15-2022 [facility] URINE DIPSTICK; REFLEX MICRO SCOPY; REFLEX CULTURE PERFORMABLEon 05-15-2022 Appearance (U) Clear Clear [facility] Color (U) Yellow Yellow [facility] Glucose Test strip (U) [Mass/Vol] 100 mg/dL Abnormal Negative [facility] Interpretation and review of laboratory results Abnormal [facility] Ketones (U) [Mass/Vol] Negative Negative [facility] Leukocyte esterase Test strip Ql (U) Large Abnormal Negative [facility] Nitrite Ql (U) Negative Negative [facility] pH (U) 6.0 [pH] 5.0 - 7.0 [facility] Protein (U) [Mass/Vol] 100 mg/dL Abnormal Negative [facility] RBC (U) [#/Vol] Large Abnormal Negative [facility] Specific gravity (U) [Rel density] 1.010 [facility] Urobilinogen (U) [Mass/Vol] 0.2 E.U./dL 0.2 E.U/dL, 1.0 E.U/dL [facility] URINE MICROSCOPIC WITH REFLE X TO CULTUREOrdered By: Rey Bor on 05-15-2022 Bacteria LM Ql (Urine sed) ABSENT ABSENT [facility] Epithelial cells.squamous LM Ql (Urine sed) ABSENT 1/hpf = 1+, 2-5/hpf = 2+, 0/hpf = 0+, ABSENT [facility] Interpretation and review of laboratory results Abnormal [facility] RBC LM.HPF (Urine sed) [#/Area] /[HPF] Abnormal 0 - 2 /HPF [facility] WBC LM.HPF (Urine sed) [#/Area] 10-20 Abnormal 0 - 5 /HPF [facility] CT ABD/PELVIS WO CONon 05-12 CT ABD/PELVIS WO CON Begin Addendum #[address] Lund 3:25 PM EST 05/11/2022. Begin Addendum #2 IMPRESSION below should also contain the followin. 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 The kake kidneys are progressively atrophic bilaterally compared to [...] of 06/14/2020 are no longer present. The kake distal right ureter is decompressed beyond this [...] with surgical history for renal graft and kake right urinary drainage, as a discrete ureteroneocystostomy is not identified, and the graft may be draining via a ureteroureterostomy. Urology consultation recommended. 3. The kake kidneys are bilaterally atrophic, with right renal sinus calcifications consistent with nonobstructing right kake renal calculi up to 6 mm. Normal [facility] CBC AUTO DIFFon 05-11-2022 BASO # 0.1 103/ul Normal 0.0-0.1 [facility] Comment on above: Performed By: #### U RTPCR #### [facility] [address] [place] [address] Dr. Dwight Waters Basophils/100 WBC (Bld) 0.8 % Normal 0.2-2.0 [facility] Comment on above: Performed By: #### U RTPCR #### [facility] Laboratory [address] [place] [address] Dr. Dwight Waters EO # 0.2 103/ul Normal 0.0-0.7 [facility] Comment on above: Performed By: #### U RTPCR #### [facility] [address] [place] [address] Dr. Dwight Waters Eosinophils/100 WBC (Bld) 2.5 % Normal 0.9-7.0 [facility] Comment on above: Performed By: #### U RTPCR #### [facility] [address] [place] [address] Dr. Dwight Waters Erythrocyte distribution width (RBC) [Ratio] 12.5 % Normal 11.0-15.0 [facility] Comment on above: Performed By: #### U RTPCR #### [facility] [address] [place] [address] Dr. Dwight Waters Hematocrit (Bld) [Volume fraction] 48.3 % Normal 42.0-54.0 [facility] Comment on above: Performed By: #### U RTPCR #### [facility] [address] [place] [address] Dr. Dwight Waters Hemoglobin (Bld) [Mass/Vol] 15.3 g/dL Normal 14.0-18.0 [facility] Comment on above: Performed By: #### U RTPCR #### [facility] [address] [place] [address] Dr. Dwight Waters IG # 0.01 10e3/ul Normal 0.00-0.03 [facility] Comment on above: Performed By: #### U RTPCR #### [facility] [address] [place] [address] Dr. Dwight Waters IG % 0.2 % Normal 0.0-0.5 [facility] Comment on above: Performed By: #### U RTPCR #### [facility] [address] [place] [address] Dr. Dwight Waters LYMPH # 1.9 103/ul Normal 1.2-3.8 [facility] Comment on above: Performed By: #### U RTPCR #### [facility] [address] [place] [address] Dr. Dwight Waters Lymphocytes/100 WBC (Bld) 29.8 % Normal 20.5-60.0 [facility] Comment on above: Performed By: #### U RTPCR #### [facility] [address] [place] [address] Dr. Dwight Waters MANUAL DIFF REQ NO Normal [facility] Comment on above: Performed By: #### U RTPCR #### [facility] [address] [place] [address] Dr. Dwight Waters MCH (RBC) [Entitic mass] 28.2 pg Normal 25.9-34.0 [facility] Comment on above: Performed By: #### U RTPCR #### [facility] [address] [place] [address] Dr. Dwight Waters MCHC (RBC) [Mass/Vol] 31.7 g/dL Normal 29.9-35.2 [facility] Comment on above: Performed By: #### U RTPCR #### [facility] [address] [place] [address] Dr. Dwight Waters MCV (RBC) [Entitic vol] 89.1 fL Normal 80.0-94.0 [facility] Comment on above: Performed By: #### U RTPCR #### [facility] [address] [place] [address] Dr. Dwight Waters MONO # 0.6 103/ul Normal 0.3-0.8 [facility] Comment on above: Performed By: #### U RTPCR #### [facility] [address] [place] [address] Dr. Dwight Waters Monocytes/100 WBC (Bld) 9.0 % Normal 1.7-12.0 [facility] Comment on above: Performed By: #### U RTPCR #### [facility] [address] [place] [address] Dr. Dwight Waters NEUT # 3.6 103/ul Normal 1.4-6.5 [facility] Comment on above: Performed By: #### U RTPCR #### [facility] [address] [place] [address] Dr. Dwight Waters Neutrophils/100 WBC (Bld) 57.7 % Normal 43.0-75.0 [facility] Comment on above: Performed By: #### U RTPCR #### [facility] [address] [place] [address] Dr. Dwight Waters Platelet mean volume (Bld) [Entitic vol] 9.9 fL Normal 9.5-13.5 [facility] Comment on above: Performed By: #### U RTPCR #### [facility] [address] [place] [address] Dr. Dwight Waters PLT 249 103/ul Normal 150-450 [facility] Comment on above: Performed By: #### U RTPCR #### [facility] [address] [place] [address] Dr. Dwight Waters RBC 5.42 106/ul Normal 4.70-6.10 [facility] Comment on above: Performed By: #### U RTPCR #### [facility] [address] [place] [address] Dr. Dwight Waters WBC 6.3 103/ul Normal 4.0-11.0 [facility] Comment on above: Performed By: #### U RTPCR #### [facility] [address] [place] [address] Dr. Dwight Waters ER URINE PROFILEon 2 Bilirubin Ql (U) Unable to perform te sting due to color interference. Abnormal NEGATIVE [facility] Comment on above: Performed By: #### U RTPCR #### [facility] [address] [place] [address] Dr. Dwight Waters Clarity (U) TURBID Abnormal CLEAR [facility] Comment on above: Performed By: #### U RTPCR #### [facility] [address] [place] [address] Dr. Dwight Waters Color (U) RED Abnormal YELLOW [facility] Comment on above: Performed By: #### U RTPCR #### [facility] [address] [place] [address] Dr. Dwight Waters ERUAHD A micrscopic examina tion will be performed if indicated. Normal [facility] Comment on above: Performed By: #### U RTPCR #### [facility] [address] [place] [address] Dr. Dwight Waters Glucose Ql (U) Unable to perform te sting due to color interference. Abnormal NEGATIVE [facility] Comment on above: Performed By: #### U RTPCR #### [facility] [address] [place] [address] Dr. Dwight Waters Hemoglobin Ql (U) Unable to perform te sting due to color interference. Abnormal NEGATIVE [facility] Comment on above: Performed By: #### U RTPCR #### [facility] [address] [place] [address] Dr. Dwight Waters Ketones Ql (U) Unable to perform te sting due to color interference. Abnormal NEGATIVE [facility] Comment on above: Performed By: #### U RTPCR #### [facility] [address] [place] [address] Dr. Dwight Waters LEUKOCYTES Unable to perform te sting due to color interference. Abnormal NEGATIVE [facility] Comment on above: Performed By: #### U RTPCR #### [facility] [address] [place] [address] Dr. Dwight Waters Nitrite Ql (U) Unable to perform te sting due to color interference. Abnormal NEGATIVE [facility] Comment on above: Performed By: #### U RTPCR #### [facility] [address] [place] [address] Dr. Dwight Waters pH (U) 6.5 [pH] Normal 5-9 [facility] Comment on above: Performed By: #### U RTPCR #### [facility] [address] [place] [address] Dr. Dwight Waters SPEC GRAVITY 1.020 Normal 1.005-<=1.02 5 [facility] Comment on above: Performed By: #### U RTPCR #### [facility] [address] [place] [address] Dr. Dwight Waters UA PROTEIN Unable to perform te sting due to color interference. Normal NEGATIVE/ TRACE [facility] Comment on above: Performed By: #### U RTPCR #### [facility] [address] [place] [address] Dr. Dwight Waters UR MICRO IND INDICATED Normal [facility] Comment on above: Performed By: #### U RTPCR #### [facility] [address] [place] [address] Dr. Dwight Waters UROBILINOGEN Unable to perform te sting due to color interference. Normal 0.2 - 1.0 [facility] Comment on above: Performed By: #### U RTPCR #### [facility] [address] [place] [address] Dr. Dwight Waters PROF 14(COMP METB)on 022 Albumin [Mass/Vol] 3.8 g/dL Normal 3.4-5.0 [facility] Comment on above: Performed By: #### C MP #### [facility] [address] [place] [address] Dr. Dwight Waters Albumin/Globulin [Mass ratio] 1.1 {ratio} Normal [facility] Comment on above: Performed By: #### C MP #### [facility] [address] [place] [address] Dr. Dwight Waters ALP [Catalytic activity/Vol] 106 U/L Normal 46-116 [facility] Comment on above: Performed By: #### C MP #### [facility] [address] [place] [address] Dr. Dwight Waters ALT [Catalytic activity/Vol] 30 U/L Normal 16-63 [facility] Comment on above: Performed By: #### C MP #### [facility] [address] [place] [address] Dr. Dwight Waters Anion gap [Moles/Vol] 11.7 mmol/L Normal [facility] Comment on above: Performed By: #### C MP #### [facility] [address] [place] [address] Dr. Dwight Waters AST [Catalytic activity/Vol] 16 U/L Normal 15-37 [facility] Comment on above: Performed By: #### C MP #### [facility] [address] [place] [address] Dr. Dwight Waters Bilirubin [Mass/Vol] 0.6 mg/dL Normal 0.2-1.0 [facility] Comment on above: Performed By: #### C MP #### [facility] [address] [place] [address] Dr. Dwight Waters Calcium [Mass/Vol] 9.1 mg/dL Normal 8.5-10.1 [facility] Comment on above: Performed By: #### C MP #### [facility] [address] [place] [address] Dr. Dwight Waters CO2 [Moles/Vol] 27.4 mmol/L Normal 21.0-32.0 [facility] Comment on above: Performed By: #### C MP #### [facility] [address] [place] [address] Dr. Dwight Waters Creatinine [Mass/Vol] 1.18 mg/dL Normal 0.70-1.30 [facility] Comment on above: Performed By: #### C MP #### [facility] [address] [place] [address] Dr. Dwight Waters EGFR-AF TURKISH >60 Normal >=60 [facility] Comment on above: Performed By: #### C MP #### [facility] [address] [place] [address] Dr. Dwight Waters EGFR-NON AF TURKISH >60 Normal >=60 [facility] Comment on above: Performed By: #### C MP #### [facility] [address] [place] [address] Dr. Dwight Waters Globulin (S) [Mass/Vol] 3.6 g/dL Normal [facility] Comment on above: Performed By: #### C MP #### [facility] [address] [place] [address] Dr. Dwight Waters Glucose [Mass/Vol] 192 mg/dL Critically high 74-[address] [facility] Comment on above: Performed By: #### C MP #### [facility] [address] [place] [address] Dr. Dwight Waters Potassium [Moles/Vol] 4.1 mmol/L Normal 3.5-5.1 [facility] Comment on above: Performed By: #### C MP #### [facility] [address] [place] [address] Dr. Dwight Waters Protein [Mass/Vol] 7.4 g/dL Normal 6.4-8.2 [facility] Comment on above: Performed By: #### C MP #### [facility] [address] [place] [address] Dr. Dwight Waters Sodium [Moles/Vol] 142 mmol/L Normal 136-145 [facility] Comment on above: Performed By: #### C MP #### [facility] [address] [address] [address] Dwight Waters Urea nitrogen [Mass/Vol] 17.0 mg/dL Normal 7.0-18.0 [facility] Comment on above: Performed By: #### C MP #### [facility] [address] [place] [address] Dr. Dwight Waters Urea nitrogen/Creatinine [Mass ratio] 14.4 mg/mg Normal [facility] Comment on above: Performed By: #### C MP #### [facility] [address] [place] [address] Dr. Dwight Waters URINE MICROSCOPIC ONLYon BACTERIA NONE SEEN Normal NONE SEEN [facility] Comment on above: Performed By: #### U RTPCR #### [facility] [address] [place] [address] Dr. Dwight Waters Bacteria identified Cx Nom (U) NOT INDICATED Normal [facility] Comment on above: Performed By: #### U RTPCR #### [facility] [address] [place] [address] Dr. Dwight Waters CAST NONE SEEN Normal NONE SEEN [facility] Comment on above: Performed By: #### U RTPCR #### [facility] [address] [place] [address] Dr. Dwight Waters Crystals LM Nom (Urine sed) NONE SEEN Normal NONE SEEN [facility] Comment on above: Performed By: #### U RTPCR #### [facility] [address] [place] [address] Dr. Dwight Waters Epithelial cells LM Ql (Urine sed) RARE Normal NONE SEEN /RARE [facility] Comment on above: Performed By: #### U RTPCR #### [facility] [address] [place] [address] Dr. Dwight Waters MUCOUS NONE SEEN Normal NONE SEEN [facility] Comment on above: Performed By: #### U RTPCR #### [facility] [address] [place] [address] Dr. Dwight Waters RBC (U) [#/Vol] /uL Abnormal 0-2 [facility] Comment on above: Performed By: #### U RTPCR #### [facility] [address] [address] [address] Dwight Waters WBC NONE SEEN Normal NONE SEEN [facility] Comment on above: Performed By: #### U RTPCR #### [facility] [address] [address] [address] Dwight Waters K (Potassium)on 01-06-2020 Potassium [Moles/Vol] 4.4 mmol/L Normal 3.7-5.3 [facility] Comment on above: Performed By: #### K #### [facility] [address] [place] [address] Forestry Supervisor: Kehinde Woodward MD Potassiumon 01-06-2020 Potassium [Moles/Vol] 4.4 mmol/L 3.7 - 5.3 mmol/L [facility] Work Phone: Hemoglobin and Hematocrit, B loodon 10-24-2019 Hematocrit (Bld) [Volume fraction] 23.6 % Low 40.7 - 50.3 % [place], [place] Hemoglobin (Bld) [Mass/Vol] 7.3 g/dL Low 13 - 17 g/dL [place] Interpretation and review of laboratory results Abnormal [place] Hgb/Hcton 10-24-2019 Hematocrit (Bld) [Volume fraction] 23.6 % Low 40.7-50.3 [facility] Comment on above: Performed By: #### H H #### [facility] [address] [place] [address] Forestry Supervisor: Kehinde Woodward MD Hemoglobin (Bld) [Mass/Vol] 7.3 g/dL Low 13.0-17.0 [facility] Comment on above: Performed By: #### H H #### [facility] [address] [place] [address] Forestry Supervisor: Kehinde Woodward MD Hemoglobinon 08-27-2019 Hemoglobin (Bld) [Mass/Vol] 7.5 g/dL Low 13.0-17.0 [facility] Comment on above: Performed By: #### H GB #### [facility] [address] [place] [address] Forestry Supervisor: Kehinde Woodward MD Hemoglobin (Bld) [Mass/Vol] 7.5 g/dL Low 13 - 17 g/dL [place] Interpretation and review of laboratory results Abnormal [place] Hemoglobinon 08-08-2019 Hemoglobin (Bld) [Mass/Vol] 8.3 g/dL Low 13.0-17.0 [facility] Comment on above: Performed By: #### H GB #### [facility] [address] [place] [address] Forestry Supervisor: Kehinde Woodward MD Hemoglobin (Bld) [Mass/Vol] 8.3 g/dL Low 13 - 17 g/dL [place] Interpretation and review of laboratory results Abnormal [place] Hemoglobinon 08-04-2019 Hemoglobin (Bld) [Mass/Vol] 8.0 g/dL Low 13.0-17.0 [facility] Comment on above: Performed By: #### H GB #### [facility] [address] [place] [address] Forestry Supervisor: Kehinde Woodward MD Hemoglobin A1Con 08-03-2019 HbA1c (Bld) [Mass fraction] % Low 4.8-5.9 [facility] Comment on above: Result Comment: The ADA and AACC recommend providing the estimated average glucose result to permit better patient understanding of their HBA1c result. Performed By: #### G LYHGB #### [facility] [address] [place] [address] Forestry Supervisor: Kehinde Woodward MD Glucose [Mass/Vol] mg/dL mg/dL [place], [place] Comment on above: The ADA and AACC rec ommend providing the estimated average glucose result to permit better patient understanding of their HBA1c result. HbA1c (Bld) [Mass fraction] % Low 4.8 - 5.9 % [place] Interpretation and review of laboratory results Abnormal [place] Hemoglobinon 08-01-2019 Hemoglobin (Bld) [Mass/Vol] 8.1 g/dL Low 13.0-17.0 [facility] Comment on above: Performed By: #### H GB #### [facility] [address] [place] [address] Forestry Supervisor: Kehinde Woodward MD Hemoglobin (Bld) [Mass/Vol] 8.1 g/dL Low 13 - 17 g/dL [place] Interpretation and review of laboratory results Abnormal [place] Hgb/Hcton 06-10-2019 Hematocrit (Bld) [Volume fraction] 24.3 % Low 40.7-50.3 [facility] Comment on above: Performed By: #### H H #### [facility] [address] [place] [facility] Forestry Supervisor: Kehinde Woodward MD Hemoglobin (Bld) [Mass/Vol] 7.4 g/dL Low 13.0-17.0 [facility] Comment on above: Performed By: #### H H #### [address] [place] [address] Forestry Supervisor: Kehinde Woodward MD Hemoglobinon 06-01-2019 Hemoglobin (Bld) [Mass/Vol] 7.2 g/dL Low 13.0-17.0 [facility] Comment on above: Performed By: #### H GB #### [facility] [address] [place] [address] Forestry Supervisor: Kehinde Woodward MD K (Potassium)on 01-14-2019 Potassium [Moles/Vol] 3.6 mmol/L Low 3.7-5.3 [facility] Comment on above: Performed By: #### K #### [facility] [address] [place] [address] Forestry Supervisor: Kehinde Woodward MD Otheron 10-19-2018 IMPRESSION: 1. [...] characteristics determined by Toxicology Laboratory at [facility]. It has not been cleared or [...] Amitriptyline(50), Amphetamine(250), Atenolol(500), Barbiturates(1000), Benzoylecgonine(50), Buprenorphine(50), Bupropion(25), Caffeine(40578), Chlordiazepoxide(50), Chlorpheniramine(100), Chlorpromazine(50), Citalopram(100), Clonazepam(200), Cocaine(25), Codeine(200), [...] Code LAB, [facility] TOXICOLOGY SCREEN URINE - [facility] 10-12-2018 Drugs identified Screen Nom (U) For Medical Purposes Only, Non-forensic, screen results are presumptive. No confirmatory testing will follow. Invalid Interpretation Code LAB, [facility] Comment on above: This Liquid Chromato graphy Mass Spectrometry (LC/MS/MS) test was developed and its performance characteristics determined by Toxicology Laboratory at [facility]. It has not been cleared or [...] Amitriptyline(50), Amphetamine(250), Atenolol(500), Barbiturates(200), Benzoylecgonine(50), Buprenorphine(500), Bupropion(25), Caffeine(74500), Cannabinoids(THC)(50), Chlordiazepoxide(50), Chlorpheniramine(100), Chlorpromazine(50), Citalopram(100), Clonazepam(200), Cocaine(25), [...] 56 mm[Hg] Candie Almaguer MD Work Phone: [facility] 02-26-2024 09:07-0400 Heart rate 65 /min Candie Almaguer MD Work Phone: [facility] 02-26-2024 09:07-0400 Systolic blood pressure 113 mm[Hg] Candie Almaguer MD Work Phone: [facility] 02-26-2024 09:06-0400 Body height 170.2 cm Candie Almaguer MD Work Phone: [facility] 02-26-2024 09:06-0400 Body mass index (BMI) [Ratio] 28.9 kg/m2 Candie Almaguer MD Work Phone: [facility] 02-26-2024 09:06-0400 Body weight 83.69 kg Candie Almaguer MD Work Phone: [facility] 02-26-2024 09:06-0400 Respiratory rate 20 /min Candie Almaguer MD Work Phone: [facility] 02-26-2024 09:06-0400 SaO2% (BldA) [Mass fraction] 97 % Candie Almaguer MD Work Phone: [facility] 01-23-2024 15:04-0500 Body temperature 97.9 [degF] Kevin Prince MD Work Phone: [facility] 01-23-2024 15:04-0500 Diastolic blood pressure 67 mm[Hg] Kevin Prince MD Work Phone: [facility] 01-23-2024 15:04-0500 Heart rate 51 /min Kevin Prince MD Work Phone: [facility] 01-23-2024 15:04-0500 Respiratory rate 16 /min Kevin Prince MD Work Phone: [facility] 01-23-2024 15:04-0500 SaO2% (BldA) [Mass fraction] 94 % Kevin Prince MD Work Phone: [facility] 01-23-2024 15:04-0500 Systolic blood pressure 151 mm[Hg] Kevin Prince MD Work Phone: [facility] 01-23-2024 10:46-0500 Body mass index (BMI) [Ratio] 30.94 kg/m2 Kevin Prince MD Work Phone: [facility] 01-23-2024 10:46-0500 Body weight 89.6 kg Kevin Prince MD Work Phone: [facility] 01-18-2024 11:21-0500 Body height 170.2 cm Kevin Prince MD Work Phone: [facility] 01-06-2024 09:04-0500 Body height 170.2 cm Zuly Bruno LEAD BUSINESS SYSTEMS ANALYST Work Phone: [facility] 01-06-2024 09:04-0500 Body mass index (BMI) [Ratio] 32.42 kg/m2 Zuly Bruno LEAD BUSINESS SYSTEMS ANALYST Work Phone: [facility] 01-06-2024 09:04-0500 Body temperature 97.81 [degF] Zuly Bruno LEAD BUSINESS SYSTEMS ANALYST Work Phone: [facility] 01-06-2024 09:04-0500 Body weight 93.89 kg Zuly Bruon LEAD BUSINESS SYSTEMS ANALYST Work Phone: [facility] 01-06-2024 09:04-0500 Diastolic blood pressure 70 mm[Hg] Zuly Bruno LEAD BUSINESS SYSTEMS ANALYST Work Phone: [facility] 01-06-2024 09:04-0500 Heart rate 95 /min Zuly Bruno LEAD BUSINESS SYSTEMS ANALYST Work Phone: [facility] 01-06-2024 09:04-0500 Respiratory rate 17 /min Zuly Torresjose e LEAD BUSINESS SYSTEMS ANALYST Work Phone: [facility] 01-06-2024 09:04-0500 SaO2% (BldA) [Mass fraction] 99 % Zuly Annz LEAD BUSINESS SYSTEMS ANALYST Work Phone: [facility] 01-06-2024 09:04-0500 Systolic blood pressure 138 mm[Hg] Zuly Annz LEAD BUSINESS SYSTEMS ANALYST Work Phone: [facility] 09-11-2023 10:31-0400 Body temperature 97.81 [degF] Steve Yeison MBBS Work Phone: [facility] 09-11-2023 10:31-0400 Diastolic blood pressure 66 mm[Hg] Steve Yeison MBBS Work Phone: [facility] 09-11-2023 10:31-0400 Heart rate 70 /min Steve Yeison MBBS Work Phone: [facility] 09-11-2023 10:31-0400 Respiratory rate 20 /min Steve Yeison MBBS Work Phone: [facility] 09-11-2023 10:31-0400 SaO2% (BldA) [Mass fraction] 91 % Steve Yeison MBBS Work Phone: [facility] 09-11-2023 10:31-0400 Systolic blood pressure 129 mm[Hg] Steve Yeison MBBS Work Phone: [facility] 09-10-2023 15:50-0400 Body mass index (BMI) [Ratio] 31.99 kg/m2 Steve Yeison MBBS Work Phone: [facility] 09-10-2023 15:50-0400 Body weight 92.67 kg Steve Yeison MBBS Work Phone: [facility] 09-02-2023 07:32-0400 Body height 170.2 cm Steve Yeison MBBS Work Phone: [facility] 08-28-2023 13:33-0400 Body height 170.2 cm Steve Yeison MBBS Work Phone: [facility] 08-28-2023 13:33-0400 Body mass index (BMI) [Ratio] 32.12 kg/m2 Steve Yeison MBBS Work Phone: [facility] 08-28-2023 13:33-0400 Body temperature 97.3 [degF] Steve Yeison MBBS Work Phone: [facility] 08-28-2023 13:33-0400 Body weight 93.03 kg Steve Yeison MBBS Work Phone: [facility] 08-28-2023 13:33-0400 Diastolic blood pressure 41 mm[Hg] Steve Yeison MBBS Work Phone: [facility] 08-28-2023 13:33-0400 Heart rate 116 /min Steve Yeison MBBS Work Phone: [facility] 08-28-2023 13:33-0400 Systolic blood pressure 106 mm[Hg] Steve Yeison MBBS Work Phone: [facility] 06-12-2023 14:50-0400 Body mass index (BMI) [Ratio] 33.8 kg/m2 Rebeca Gutierrez WATERMASTER-MEDICAL SUPPORT SPECIALIST Work Phone: [facility] 06-12-2023 14:50-0400 Body temperature 97.3 [degF] Rebeca Gutierrez WATERMASTER-MEDICAL SUPPORT SPECIALIST Work Phone: [facility] 06-12-2023 14:50-0400 Body weight 97.89 kg Rebeca Gutierrez WATERMASTER-MEDICAL SUPPORT SPECIALIST Work Phone: [facility] 06-12-2023 14:50-0400 Diastolic blood pressure 77 mm[Hg] Rebeca Gutierrez WATERMASTER-MEDICAL SUPPORT SPECIALIST Work Phone: [facility] 06-12-2023 14:50-0400 Heart rate 76 /min Rebeca Gutierrez WATERMASTER-MEDICAL SUPPORT SPECIALIST Work Phone: [facility] 06-12-2023 14:50-0400 Systolic blood pressure 146 mm[Hg] Rebeca Gutierrez WATERMASTER-MEDICAL SUPPORT SPECIALIST Work Phone: [facility] 01-16-2023 08:57-0500 Body height 170.2 cm [facility] Work Phone: [facility] 01-16-2023 08:57-0500 Body mass index (BMI) [Ratio] 33.66 kg/m2 [facility] Work Phone: [facility] 01-16-2023 08:57-0500 Body temperature 97.3 [degF] [facility] Work Phone: [facility] 01-16-2023 08:57-0500 Body weight 97.48 kg [facility] Work Phone: [facility] 01-16-2023 08:57-0500 Diastolic blood pressure 75 mm[Hg] [facility] Transplant Hepatology 3 Work Phone: [facility] 01-16-2023 08:57-0500 Heart rate 76 /min [facility] Transplant Hepatology 3 Work Phone: [facility] 01-16-2023 08:57-0500 Systolic blood pressure 142 mm[Hg] [facility] Transplant Hepatology 3 Work Phone: [facility] 09-10-2022 09:38-0400 Body height 170.2 cm Ryan Yepez MD Work Phone: 7(937)569-404901 [place] [address] 09-10-2022 09:38-0400 Body mass index (BMI) [Ratio] 33.67 kg/m2 Ryan Yepez MD Work Phone: 2(695)778-884501 [place] [address] 09-10-2022 09:38-0400 Body weight 97.52 kg Ryan Yepez MD Work Phone: 7(266)211-46[address] [place] [address] 09-10-2022 09:38-0400 Diastolic blood pressure 83 mm[Hg] Ryan Yepez MD Work Phone: 7(249)187-393801 [place] [address] 09-10-2022 09:38-0400 Heart rate 64 /min Ryan Yepez MD Work Phone: 8(901)333-817301 [place] [address] 09-10-2022 09:38-0400 SaO2% (BldA) [Mass fraction] 96 % Ryan Yepez MD Work Phone: 8(417)390-301701 [place] [address] 09-10-2022 09:38-0400 Systolic blood pressure 129 mm[Hg] Ryan Yepez MD Work Phone: 2(611)696-013301 [place] [address] 07-07-2022 13:48-0400 Diastolic blood pressure 76 mm[Hg] Ryan Yepez MD Work Phone: 1(961)470-505201 [place] [address] 07-07-2022 13:48-0400 Heart rate 82 /min Ryan Yepez MD Work Phone: 7(669)156-823501 [place] [address] 07-07-2022 13:48-0400 SaO2% (BldA) [Mass fraction] 96 % Ryan Yepez MD Work Phone: 0(058)798-508701 [place] [address] 07-07-2022 13:48-0400 Systolic blood pressure 141 mm[Hg] Ryan Yepez MD Work Phone: 9(180)479-686801 [place] [address] 06-27-2022 13:32-0400 Body height 170.2 cm Ryan Yepez MD Work Phone: [facility] 06-27-2022 13:32-0400 Body mass index (BMI) [Ratio] 34.24 kg/m2 Ryan Yepez MD Work Phone: [facility] 06-27-2022 13:32-0400 Body temperature 98.6 [degF] Ryan Yepez MD Work Phone: [facility] 06-27-2022 13:32-0400 Body weight 99.16 kg Ryan Yepez MD Work Phone: [facility] 06-27-2022 13:32-0400 Diastolic blood pressure 78 mm[Hg] Ryan Yepez MD Work Phone: [facility] 06-27-2022 13:32-0400 Heart rate 77 /min Ryan Yepez MD Work Phone: [facility] 06-27-2022 13:32-0400 SaO2% (BldA) [Mass fraction] 95 % Ryan Yepez MD Work Phone: [facility] 06-27-2022 13:32-0400 Systolic blood pressure 121 mm[Hg] Ryan Yepez MD Work Phone: [facility] 06-27-2022 10:52-0400 Body height 170.2 cm Rena Brewster RN [facility] 06-27-2022 10:52-0400 Body mass index (BMI) [Ratio] 34.46 kg/m2 Rena Brewster RN [facility] 06-27-2022 10:52-0400 Body temperature 98.2 [degF] Rena Brewster RN [facility] 06-27-2022 10:52-0400 Body weight 99.79 kg Rena Brewster RN [facility] 06-27-2022 10:52-0400 Diastolic blood pressure 73 mm[Hg] Rena Brewster RN [facility] 06-27-2022 10:52-0400 Heart rate 78 /min Rena Brewster RN [facility] 06-27-2022 10:52-0400 Respiratory rate 20 /min Rena Brewster RN [facility] 06-27-2022 10:52-0400 SaO2% (BldA) [Mass fraction] 97 % Rena Brewster RN [facility] 06-27-2022 10:52-0400 Systolic blood pressure 135 mm[Hg] Rena Brewster RN [facility] 06-12-2022 14:23-0400 Body mass index (BMI) [Ratio] 34.59 kg/m2 Steve Farrari MBBS Work Phone: [facility] 06-12-2022 14:23-0400 Body temperature 97 [degF] Steve Yeison MBBS Work Phone: [facility] 06-12-2022 14:23-0400 Body weight 100.2 kg Steve Yeison MBBS Work Phone: [facility] 06-12-2022 14:23-0400 Diastolic blood pressure 66 mm[Hg] Steve Yeison MBBS Work Phone: [facility] 06-12-2022 14:23-0400 Heart rate 63 /min Steve Yeison MBBS Work Phone: [facility] 06-12-2022 14:23-0400 Systolic blood pressure 133 mm[Hg] Steve Yeison MBBS Work Phone: [facility] 05-20-2022 15:21-0400 Body temperature 97.9 [degF] Gian Villatoro MD Work Phone: [facility] 05-20-2022 15:21-0400 Diastolic blood pressure 64 mm[Hg] Gian Villatoro MD Work Phone: 6(829)032-136165 [place] [address] 05-20-2022 15:21-0400 Heart rate 55 /min Gian Villatoro MD Work Phone: 7(580)623-713665 [place] [address] 05-20-2022 15:21-0400 Respiratory rate 15 /min Gian Villatoro MD Work Phone: 2(601)775-481765 [place] [address] 05-20-2022 15:21-0400 SaO2% (BldA) [Mass fraction] 95 % Gian Villatoro MD Work Phone: 3(482)540-996565 [place] [address] 05-20-2022 15:21-0400 Systolic blood pressure 145 mm[Hg] Gian Villatoro MD Work Phone: 6(897)941-777465 [place] [address] 05-19-2022 12:15-0400 Body mass index (BMI) [Ratio] 35.87 kg/m2 Gian Villatoro MD Work Phone: 6(097)625-273265 [place] [address] 05-19-2022 12:15-0400 Body weight 103.92 kg Gian Villatoro MD Work Phone: 7(321)607-858065 [place] [address] Comment on above: standing scale 05-16-2022 16:19-0400 Body height 170.2 cm Gian Villatoro MD Work Phone: 1(529)070-905365 [place] [address] 10-19-2018 08:44-0500 BMI (Body Mass Index) 26.58 kg/m2 [facility] Work Phone: 10-19-2018 08:44-0500 BP Diastolic 76 mm[Hg] [facility] Work Phone: 10-19-2018 08:44-0500 BP Systolic 144 mm[Hg] [facility] Work Phone: 10-19-2018 08:44-0500 Height 172.[address] [facility] Work Phone: 10-19-2018 08:44-0500 Pulse (Heart Rate) 92 /min [facility] Work Phone: 10-19-2018 08:44-0500 Pulse Oximetry 99 % [facility] Work Phone: 10-19-2018 08:44-0500 Respiratory Rate 16 /min [facility] Work Phone: 10-19-2018 08:44-0500 Weight 79.[address] [facility] Work Phone: 10-12-2018 09:50-0500 BMI (Body Mass Index) 27.24 kg/m2 [facility] Work Phone: 10-12-2018 09:50-0500 Body Temperature 98.6 [degF] [facility] Work Phone: 10-12-2018 09:50-0500 BP Diastolic 80 mm[Hg] [facility] Work Phone: 10-12-2018 09:50-0500 BP Systolic 157 mm[Hg] [facility] Work Phone: 10-12-2018 09:50-0500 Height 169.5 cm [facility] Work Phone: 10-12-2018 09:50-0500 Pulse (Heart Rate) 94 /min [facility] Work Phone: 10-12-2018 09:50-0500 Weight 78.29 kg [facility] Work Phone: Encounters Encounter Date Encounter Type Care Provider Facility Start: 03-10-2024 End: 03-10-2024 ambulatory JOHNNA HOLLIDAY Not Available Start: 03-08-2024 End: 03-08-2024 ambulatory JOHNNA SIMSHANTA Not Available Start: 03-03-2024 End: 03-03-2024 ambulatory JOHNNA SIMINK Not Available Start: 03-02-2024 End: 03-02-2024 ambulatory Meka Munoz [facility] Start: 03-02-2024 End: 03-02-2024 Patient encounter procedure Meka Munoz [facility] Out[facility] Start: 03-01-2024 ambulatory ZULY AICHHOLZ Facility: [facility] Start: 03-01-2024 End: 03-01-2024 ambulatory JOHNNA SIMINK Not Available Start: 02-26-2024 ambulatory ZULY AICHHOLZ Facility: [facility] Start: 02-26-2024 ambulatory ZULY AICHHOLZ Facility: [facility] Start: 02-26-2024 End: 02-26-2024 Office outpatient new 30 minutes Candie Almaguer MD Work Phone: [facility] Comment on above: Heart failure, diast olic, acute (Primary Dx) Start: 02-25-2024 End: 02-25-2024 ambulatory FIDELINA SANCHEZ Not Available Start: 02-23-2024 End: 02-23-2024 ambulatory PALMA PALACIOS Not Available Start: 02-11-2024 End: 02-11-2024 ambulatory ZULY AICLydiaHOLZ Not Available Start: 01-16-2024 Encounter for other preprocedural examination KELVIN PACHECO [facility] Start: 01-16-2024 End: 01-23-2024 Evaluation and management of inpatient KEVIN PRINCE Facility:[facility] Start: 01-16-2024 End: 01-23-2024 Evaluation and management of inpatient Kevin Prince MD Work Phone: [id number] Comment on above: Pleural effusion on right Start: 01-16-2024 End: 01-23-2024 Patient encounter status Kevin Prince MD Work Phone: [facility] Work Phone: Start: 01-12-2024 End: 01-12-2024 ambulatory Angel Fete RPh,PharmD Pharmacy Outpatient RX [facility] Start: 01-12-2024 End: 01-12-2024 Patient encounter procedure Angel Fete RPh,PharmD Pharm[facility] Outpatient [facility] Start: 01-08-2024 Clinisync Result Encounter Generic External Data Provider [facility] External Department Unsolicited Start: 01-08-2024 Clinisync Result Encounter Generic External Data Provider [facility] External Department Unsolicited Start: 01-06-2024 End: 01-06-2024 ambulatory ZULY AICHHOLZ Not Available Start: 01-06-2024 End: 01-06-2024 Office outpatient visit 25 minutes Zuly Kiana [employer] SYSTEMS ANALYST Work Phone: [facility] Comment on above: Bilateral lower extr emity edema (Primary Dx); 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); Atherosclerosis 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); Obesity (BMI 30-39.9); DARLENE (obstructive sleep apnea); Tremor; Immunocompromised ([facility]); Primary hypertension ([facility]); Shortness of breath Start: 01-01-2024 Clinisync Result Encounter Generic External Data Provider [facility] External Department Unsolicited Start: 01-01-2024 Clinisync Result Encounter Generic External Data Provider [facility] External Department Unsolicited Start: 11-03-2023 End: 11-03-2023 ambulatory ZULY AICHHOLZ Not Available Start: 10-06-2023 ambulatory Angel Fete RPh,PharmD Pharm[facility] Outpatient [facility] Start: 10-06-2023 Patient encounter procedure Angel Fete RPh,PharmD Pharmacy Outpatient [facility] Start: 09-29-2023 ambulatory ZULY AICHHOLZ Facility: [facility] Start: 09-24-2023 ambulatory ZULY AICHHOLZ Facility: [facility] Start: 09-23-2023 ambulatory HAKEEM ALAMO Facility :[facility] Start: 09-15-2023 ambulatory ZULY AICHHOLZ Facility: [facility] Start: 08-28-2023 End: 09-11-2023 Evaluation and management of inpatient KEVIN PRINCE Facility:[facility] Start: 08-28-2023 End: 09-11-2023 Evaluation and management of inpatient Steve Latham MBBS Work Phone: [id number] Start: 08-28-2023 ambulatory STEVE LATHAM Facility:[facility] Start: 08-28-2023 End: 08-28-2023 Office outpatient visit 25 minutes Steve Latham MBBS Work Phone: [facility] Comment on above: Immunosuppressed sta tus (Primary Dx); Kidney replaced by transplant; Aftercare following organ transplant; High risk medication use; Other general symptoms and signs; Abnormal blood chemistry; Hypertension secondary to other renal disorders Start: 08-19-2023 ambulatory Meka rueda [facility] Pharm[facility] Outpatient [facility] Start: 08-19-2023 Patient encounter procedure Meka Munoz [facility] Outpatient [facility] Start: 06-12-2023 ambulatory SELF SELF Facility:[facility] Start: 06-12-2023 End: 06-12-2023 Office outpatient visit 25 minutes Steve Latham MBBS Work Phone: [facility] Comment on above: 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) Start: 06-10-2023 ambulatory Maren Bar RPh,PharmD Pharmacy Outpatient [facility] Start: 06-10-2023 Patient encounter procedure Marennoah Bar RPh,PharmD Pharmacy Outpatient [facility] Start: 05-26-2023 ambulatory ZULY BRUNO Facility: [facility] Start: 04-28-2023 End: 04-29-[address] DOCTOR EVANS Facility: Start: 04-13-2023 End: 04-13-2023 ambulatory [facility] Start: 03-12-2023 ambulatory Angel Carpio RPh,PharmD Pharmacy Outpatient [facility] Start: 03-12-2023 Patient encounter procedure Angel Carpio RPh,PharmD Pharmacy Outpatient [facility] Start: 03-10-2023 ambulatory nAgel Carpio RPlydia,PharmD Pharmacy Outpatient [facility] Start: 03-10-2023 Patient encounter procedure Angel Carpio RPlydia,PharmD Pharmacy Outpatient [facility] Start: 03-02-2023 End: 03-03-[address] DOCTOR EVANS Facility:[facility] Start: 01-16-2023 End: 01-16-2023 Office outpatient visit 25 minutes Daisha Max DO Work Phone: [facility] Comment on above: Abnormal blood chemi [...] MD Work Phone: [facility] Comment on above: BPH with obstruction /lower urinary tract symptoms (Primary Dx); Encounter for screening for malignant neoplasm of prostate Start: 08-28-2022 End: 08-29-2022 ambulatory ROB BRUNO Facility:[facility] Start: 08-14-2022 End: 08-15-[address] DOCTOR EVANS Facility:[facility] Start: 07-07-2022 End: 07-07-2022 Patient encounter procedure Ryan Yepez MD Work Phone: [facility] Comment on above: Other hydronephrosis (Primary Dx); [...] MD Work Phone: [facility] [place] Comment on above: Other hydronephrosis (Primary Dx) [...] Phone: [facility] Comment on above: Immunosuppressed sta tus [...] LAWRENCE Facility:[facility] Start: 03-14-2022 ambulatory Comfort Rivera [facility] Work Phone: Pharmacy Outpatient RX [facility] Start: 03-14-2022 Patient encounter procedure Comfort Rivera [facility] Work Phone: Pharmacy Outpatient RX [facility] Start: 06-14-2021 End: 06-14-2021 ambulatory Comfort Rivera [facility] Work Phone: [facility] Start: 06-14-2021 Patient encounter procedure Comfort Rivera [facility] Work Phone: [facility] Start: 01-20-2020 End: 01-27-2020 Patient encounter procedure PEPE CASE Facility:[facility] Start: 01-06-2020 End: 01-07-2020 [facility] Start: 01-06-2020 End: 01-06-2020 Subsequent hospital visit by physician [facility] Start: 10-24-2019 End: 10-25-2019 Patient encounter procedure TANA Colón [facility] Start: 10-24-2019 End: 10-24-2019 Subsequent hospital visit by physician [facility] Start: 08-27-2019 End: 08-28-2019 Patient encounter procedure [facility] Start: 08-27-2019 End: 08-27-2019 Subsequent hospital visit by physician [facility] Start: 08-08-2019 End: 08-09-2019 Patient encounter procedure [facility] Start: 08-08-2019 End: 08-08-2019 Subsequent hospital visit by physician [facility] Start: 08-03-2019 End: 08-04-2019 Patient encounter procedure [facility] Start: 08-03-2019 End: 08-03-2019 Subsequent hospital visit by physician [facility] Start: 08-01-2019 End: 08-02-2019 Patient encounter procedure [facility] Start: 08-01-2019 End: 08-01-2019 Subsequent hospital visit by physician [facility] Start: 06-10-2019 End: 06-11-2019 Patient encounter procedure [facility] Start: 06-01-2019 End: 06-02-2019 Patient encounter procedure [facility] Start: 01-14-2019 End: 01-15-2019 Patient encounter procedure RENA GUDINO [facility] Start: 11-17-2018 End: 11-17-2018 Patient encounter procedure Fidelina Pierson [facility] Pre Transplant Office Comment on above: Social Work Follow-u p Start: 10-19-2018 End: 10-19-2018 Patient encounter Autumn [facility] Pre Transplant Office Comment on [...] 10-13-2018 End: 10-13-2018 Patient encounter procedure Autumn [facility] Pre Transplant Office Comment on above: Reschedule Outside Medical Allan rds Request Start: 10-12-2018 End: 10-12-2018 Patient encounter procedure Sophie Fallonandrei [facility] Pre Transplant Office Comment on above: Alcoholic cirrhosis, unspecified whether ascites present (Primary Dx); Pre-transplant evaluation for liver transplant Start: 10-12-2018 End: 10-12-2018 Office outpatient new 60 minutes Alfredito Restrepo Work Phone: [facility] Pre Transplant Office Comment on above: Alcoholic cirrhosis, unspecified whether ascites present; ESRD (end stage renal disease) on dialysis; Pre-transplant evaluation for liver transplant Start: 10-06-2018 End: 10-06-2018 Patient encounter procedure Yovani Orr Work Phone: Department of Radiology Comment on above: Canceled (Insurance Company Redirected Pt) Start: 10-05-2018 Patient encounter status Comfort Rivera [facility] Work Phone: [facility] Procedures Date Procedure Procedure Detail Performing Clinician Start: 01-23-2024 Glucose measurement, blood LU Jain MD Work Phone: Start: 01-23-2024 Glucose measurement, blood LU Jain MD Work Phone: Start: 01-23-2024 Assay of magnesium Just in Jake LUZ Work Phone: Start: 01-23-2024 Hepatic function panel Arelis Mera MD Work Phone: Start: 01-23-2024 Oscillating positive expiratory pressure (flutter) physiotherapy Arelis eMra MD Work Phone: Start: 01-22-2024 CARDIAC RHYTHM Other Ot her Start: 01-22-2024 US Unspecified body region Mini Khan MD Work Phone: Start: 01-22-2024 End: 01-22-2024 Antibody screen Kevin Prince MD Work Phone: Comment on above: Performed By: #### X M ####[facility] ([facility].[address] [place] [address] Start: 01-22-2024 Assay of magnesium Just in [...] Work Phone: Start: 01-20-2024 ITRACONAZOLE LEVEL Jennifer Ortiz [facility] Work Phone: Start: 01-20-2024 Oscillating positive expiratory [...] nos quantifica tion each organism Fidelina Ortiz [facility] Work Phone: Start: 01-18-2024 Echocardiography ZULY A ICHHOLZ Start: 01-18-2024 Echo tthrc r-t 2d w/wom-mode [...] AURIS SCREEN BY PCR Carol Ann Capps WATERMASTER-TRADING ANALYST Work Phone: Start: 01-08-2024 ALL CBC [...] Work Phone: Start: 09-06-2023 Hepatic function panel Eavn Kelly MD Work Phone: Start: 09-06-2023 Oscillating [...] AURIS SCREEN BY PCR Carol Ann Capps WATERMASTER-TRADING ANALYST Work Phone: Start: 08-28-2023 CBC AND ELECTRONIC DIFF Gi Aranda MD Work Phone: Start: 08-28-2023 Complete blood count with white cell differential, automated Gi Aranda MD Work Phone: Start: 08-28-2023 End: 08-28-2023 Culture bacterial blood aerobic w/id isolates Aric Turenr MD Work Phone: Start: 08-28-2023 Electrolyte panel Mario Aranda MD Work Phone: Start: 08-28-2023 Respiratory virus DN A+RNA [Identifier] in Unspecified specimen by ESTELITA with probe detection Gi Aranda MD Work Phone: Start: 09-15-[address] DOCTOR EVANS Comment on above: Performed By: #### C MP #### [facility] [address] [place] [address] Dr. Dwight Waters Start: 07-07-2022 Rmvl nfros [...] S/P liver trans plant Comfort Rivera [facility] Work Phone: Start: 04-08-2020 H/O: liver recipient Liver tra nsplant recipient Comfort Rivera [facility] Work Phone: Start: 01-06-2020 Potassium serum plasma/whole [...] De ceased-donor kidney transplant recipient Comfort Rivera [facility] Work Phone: Start: 06-10-2019 HEMOGLOBIN AND HEMAT OCRIT, BLOOD ROB KASMANI Start: 06-01-2019 Blood count hemoglobin ROB KASMANI Start: 03-22-2019 Lipid 1996 panel - S fabricio or Plasma Comfort Rivera [facility] Work Phone: Start: 01-14-2019 Potassium serum plasma/whole [...] 10-12-2018 End: 10-12-2018 Antibody rubeola Yovani Mejias [employer] Work Phone: Start: 10-12-2018 End: 10-12-2018 Antibody varicella-zoster Yovani Orr Work Phone: Start: 10-12-2018 End: 10-12-2018 Assay of ethanol Yovani Mejias [employer] Work Phone: Start: 10-12-2018 End: 10-12-2018 Assay [...] Start: 10-12-2018 End: 10-12-2018 PSA screening Yovani [employer] Work Phone: Start: 10-12-2018 End: 10-12-2018 Thromboplastin time partial plasma/whole blood Yovani Orr Work Phone: Start: 10-12-2018 End: 10-12-2018 Assay of ethanol Yovani Orr Work Phone: Start: 10-12-2018 End: 10-12-2018 Drug/substance definitive qual/quant nos 7/more oYvani Orr Work Phone: Start: 10-12-2018 End: 10-12-2018 [...] 09-20-2029 Screening for malignant neoplasm of colon [facility] Start: 02-28-2025 Potassium [Moles/volume] in Serum or Plasma POTASSIUM [facility] Start: 01-23-2025 Potassium [Moles/volume] in Serum or Plasma POTASSIUM [facility] Start: 08-31-2024 Screening for malignant neoplasm of lung [facility] Start: 06-17-2024 End: 06-17-2024 ambulatory [facility] Trans[facility] Start: 06-17-2024 End: 06-17-2024 Patient encounter procedure [facility] Start: 03-22-2024 Fasting lipid profile LIPID SCREENING [facility] Start: 03-22-2024 Lipid panel [facility] Start: 02-26-2024 End: 02-26-2024 Patient encounter procedure 02/26/2024 9:30 AM EDT Office Visit Manager Order [facility] [address] [place] [phone] Candie Almaguer MD [address] [place] [phone] Manager Order Center [facility] Start: 02-11-2024 End: 02-11-2024 Patient encounter procedure 02/11/2024 10:30 AM EDT Office Visit [facility] [address] [place] [address] Zuly Bruno NP [address] [place] [address] [facility] Start: 02-09-2024 End: 02-09-2024 Telemedicine consultation with patient 02/09/2024 3:30 PM EDT Telemedicine Infectious [facility] [address] [place] [phone] Hakeem Alamo MD [address] [place] [address] [facility] Start: 01-15-2024 End: 01-15-2024 ambulatory [facility] Start: 01-15-2024 End: 01-15-2024 Patient encounter procedure [facility] Start: 01-06-2024 End: 01-06-2026 Echocardiogram 2D complete Echocardiogram 2D complete Echocardiography Routine DARLENE (obstructive sleep apnea) Primary hypertension (CMS/HCC) Bilateral lower extremity edema Shortness of breath Expected: 01/06/2024 (Approximate), Expires: 01/06/2026 [facility] Work Phone: Comment on above: Expected: 01/06/2024 (Approximate), Expi res: 01/06/2026 Start: 01-06-2024 End: 01-06-2024 Patient encounter procedure 01/06/2024 9:00 AM EST [facility] [address] [place] [phone] Zuly Bruno NP [address] [place] [phone] [facility] Start: 12-08-2023 End: 09-07-2024 CT Chest WO contrast [facility] Work Phone: Start: 12-01-2023 COVID-19 VACCINE (2 - Moderna risk series) COVID-19 VACCINE (2 - Moderna risk series) [facility] Start: 09-23-2023 End: 09-23-[address]23 amb[address] [facility] Start: 09-23-2023 End: 09-23-2023 Telemedicine consultation with patient 09/23/2023 4:00 PM EDT Telemedicine [facility] [address] [place] [phone] Hakeem Alamo MD [address] [place] [address] [facility] Start: 09-15-2023 End: 09-10-2024 ITRACONAZOLE LEVEL [facility] Start: 08-25-2023 End: 08-25-2024 ALLOSCREEN RECIPIENT (POST TX PRA) ALLOSCREEN RECIPIENT (POST TX PRA) Lab Routine Kidney replaced by transplant Aftercare following organ transplant Immunosuppressed status High risk medication use Other general symptoms and signs Abnormal blood chemistry Expected: 08/25/2023, Expires: 08/25/2024 [facility] Comment on above: Expected: 08/25/2023, Expires: Start: 07-31-2023 Influenza vaccination [facility] Start: 06-12-2023 End: 06-12-2023 Patient encounter procedure 06/12/2023 Office Visit Transplant Surgery Steve Latham MBBS [address] [place] [address] [facility] Transplant [facility] Start: 03-11-2023 End: 03-11-2023 Telemedicine consultation with patient 03/11/2023 Telemedicine Urology Ryan Yepez MD [address] [employer] [address] [address] [facility] [place] Start: 01-16-2023 End: 01-16-2023 Patient encounter procedure 01/16/2023 Office Visit Transplant Surgery [facility] Transplant [facility] Start: 10-31-2022 End: 10-31-2022 Patient encounter procedure 10/31/2022 Office Visit Transplant Surgery Steve Latham MBBS [address] [place] [address] [facility] Transplant [facility] Start: 09-10-2022 End: 09-10-2023 PSA screening PSA, SCREENING Lab Routine BPH with obstruction/lower urinary tract symptoms Encounter for screening for malignant neoplasm of prostate Expected: 09/10/2022 (Approximate), Expires: 09/10/2023 [facility] Comment on above: Expected: 09/10/2022 (Approximate), Expi res: 09/10/2023 Start: 08-11-2022 End: 08-11-2022 Patient encounter procedure 08/11/2022 Office Visit Urology Ryan Yepez MD [address] [facility] [address] [place] [address] Urolog Eye [facility] [place] Start: 07-31-2022 Influenza vaccination [facility] Start: 07-07-2022 End: 07-07-2022 Patient encounter procedure 07/07/2022 Office Visit Urology Ryan Yepez MD [address] [facility] [address] [place] [address] [facility] Start: 07-07-2022 End: 07-07-2023 FLUORO IMAGING FOR UROLOGY [facility] Comment on above: Expected: 07/07/2022, Expires: 3 1 Occurrences starti ng 07/07/2022 until 07/07/2022 Start: 06-27-2022 End: 06-27-2022 Patient encounter procedure 06/27/2022 Office Visit Urology Ryan Yepez MD [address] [facility] [address] [place] [address] [facility] Start: 06-27-2022 End: 06-27-2023 Basic metabolic 2000 panel - Serum or Plasma BASIC METABOLIC PANEL Lab Routine Other hydronephrosis Expected: 06/27/2022, Expires: 06/27/2023 [facility] Comment on above: Expected: 06/27/2022, Expires: 3 Start: 06-27-2022 End: 06-27-2022 Patient encounter procedure 06/27/2022 Appointment Computerized Tomography Scan Ryan Yepez MD [address] [facility] [address] [place] [address] Department of Radiology Start: 06-15-2022 End: 05-16-2023 CT Abdomen and Pelvis WO contrast CT ABDOMEN/PELVIS WITHOUT CONTRAST Imaging Routine FAYE (acute kidney injury) Expected: 06/15/2022 (Approximate), Expires: 05/16/2023 [facility] Work Phone: Comment on above: Expected: 06/15/2022 (Approximate), Expi res: 05/16/2023 Start: 06-12-2022 End: 06-12-2022 Patient encounter procedure 06/12/2022 Office Visit Transplant Surgery Steve Latham MBBS [address] [place] [address] [facility] Start: 06-11-2022 End: 06-11-2023 BK VIRUS DNA QN, PCR, PLASMA BK VIRUS DNA QN, PCR, PLASMA Lab Routine Kidney replaced by transplant Liver replaced by transplant Abnormal blood chemistry Expected: 06/11/2022, Expires: 06/11/2023 [facility] Comment on above: Expected: 06/11/2022, Expires: Start: 06-04-2022 End: 06-04-2022 Patient encounter procedure 06/04/2022 Office Visit Interventional Radiology [facility] Start: 10-18-2021 End: 10-18-2021 Patient encounter procedure 10/18/2021 Office Visit Transplant Surgery Steve Latham MBBS [address] [place] [address] [facility] Start: 07-31-2021 Influenza vaccination INFLUENZA VACCINE (#1) [facility] Start: 07-26-2021 End: 07-26-2021 Patient encounter procedure 07/26/2021 Office Visit Transplant Surgery [facility] Start: 2021 Prostate specific antigen measurement [facility] Start: 2021 Screening for malignant neoplasm of lung LUNG CANCER SCREENING [facility] Start: 2021 Zoster vaccine hzv live for subcutaneous use ZOSTER (SHINGLES) VACCINE (1 of 2) [facility] Start: 09-20-2020 Colonoscopy COLORECTAL CANCER SCREENING DISCUSSION [facility] Start: 09-20-2020 Screening for malignant neoplasm of colon [facility] Start: 07-31-2019 Influenza vaccination Flu vaccine (#1) [place], [place] Start: 05-22-2019 Annual Wellness Visit (AWV) Annual Wellness Visit (AWV) [place] Start: 04-18-2019 End: 10-19-2019 Ultrasonography of abdomen US ABDOMEN RUQ/LIVER/GB Routine Cirrhosis of liver without ascites, unspecified hepatic cirrhosis type Expected: 04/18/2019 (Approximate), Expires: 10/19/2019 [facility] Work Phone: Comment on above: Expected: 04/18/2019 (Approximate), Expi res: 10/19/2019 Start: 01-25-2019 End: 01-25-2019 Ambulatory 01/25/2019 Office Visit Gastroenterology Christin Elizabeth, [employer]-MEDICAL SUPPORT SPECIALIST [address] [place] [address] Division of Gastroenterology and Hepatology Gavin [...] for liver transplant Expected: 10/12/2018, Expires: 10/12/2019 [facility] Work Phone: Comment on above: Expected: 10/12/2018, Expires: 9 Start: 10-12-2018 End: 10-12-2019 TYPE AND SCREEN - NOT FOR TRANSFUSION TYPE AND SCREEN - NOT FOR TRANSFUSION Routine Alcoholic cirrhosis, unspecified whether ascites present Pre-transplant evaluation for liver transplant Expected: 10/12/2018, Expires: 10/12/2019 [facility] Work Phone: Comment on above: Expected: 10/12/2018, Expires: Start: 07-31-2018 Influenza vaccination INFLUENZA VACCINE (#1) [facility] Work Phone: Start: 2011 Fasting lipid profile LIPID SCREENING [facility] Work Phone: Start: 2011 Lipid screen Lipid screen [place], [place] Start: 1990 DTaP/Tdap/Td vaccine (1 - Tdap) DTaP/Tdap/Td vaccine (1 - Tdap) [place] Start: 1990 Hepatitis B vaccination HEP B VACCINE (1 of 3 - 19+ 3-dose series) [facility] Start: 1990 Hepatitis B Vaccine (1 of 3 - Risk Recombivax 3-dose series) Hepatitis B Vaccine (1 of 3 - Risk Recombivax 3-dose series) [place] Start: 1990 Third diphtheria, tetanus and acellular pertussis (DTaP) vaccination [facility] Start: 1990 Zoster vaccine hzv live for subcutaneous use ZOSTER (SHINGLES) VACCINE (1 of 2) [facility] Start: 1990 [facility] Start: 1989 Tetanus vaccination TETANUS [facility] Start: 1986 HIV screen HIV screen [place], [place] Start: 02-17-1984 HIV screening HIV SCREENING DISCUSSION [facility] Work Phone: Start: 1983 COVID-19 VACCINE (1) COVID-19 VACCINE (1) [facility] Start: 1982 DTaP/Tdap/Td vaccine (1 - Tdap) DTaP/Tdap/Td vaccine (1 - Tdap) [place] Start: 1977 Pneumococcal 0-64 years Vaccine (1 of 3 - PCV13) Pneumococcal 0-64 years Vaccine (1 of 3 - PCV13) [place] Start: 1977 PNEUMOCOCCAL VACCINE SERIES (1 - PCV) PNEUMOCOCCAL VACCINE SERIES (1 - PCV) [facility] Start: 1977 PNEUMOCOCCAL VACCINE SERIES (1 of 2 - PCV) PNEUMOCOCCAL VACCINE SERIES (1 of 2 - PCV) [facility] Start: 1977 [facility] Start: 02-17-1976 COVID-19 VACCINE (#1) COVID-19 VACCINE (#1) [facility] Start: 02-17-1976 [facility] Start: 1971 COVID-19 VACCINE (#1) COVID-19 VACCINE (#1) [facility] Start: 1971 Hepatitis B vaccination HEP B VACCINE (1 of 3 - 3-dose series) [facility] Start: 1971 Medicare Annual Wellness (AWV) Medicare Annual Wellness (AWV) [facility] Start: 1971 Screening for malignant neoplasm of colon [facility] Start: 1971 Tetanus vaccination [facility] BK VIRUS DNA QN, PCR , PLASMA BK VIRUS DNA QN, PCR, PLASMA Lab Routine Kidney replaced by transplant Liver replaced by transplant Abnormal blood chemistry 06/12/2022 3:38 PM EDT [facility] CALCULI, URINARY (KIDNEY STONE) CALCULI, URINARY (KIDNEY STONE) Fluids Routine 05/19/2022 8:16 AM EDT [facility] Work Phone: CANNABINOIDS, QUANT (URINE)THC CONFIRMATION CANNABINOIDS, QUANT (URINE)THC CONFIRMATION Routine Alcoholic cirrhosis, unspecified whether ascites present ESRD (end stage renal disease) on dialysis Pre-transplant evaluation for liver transplant 10/12/2018 12:57 PM [facility] Work Phone: End: 09-10-2024 CHEM 6 (LYTES, BUN CREA) [facility] EBV VCA IGG AB EBV VCA IGG AB R outine Alcoholic cirrhosis, unspecified whether ascites present ESRD (end stage renal disease) on dialysis Pre-transplant evaluation for liver transplant 10/12/2018 12:57 PM [facility] Work Phone: Fungus identified in Unspecified specimen by Culture [facility] HLA TYPING (SOLID ORGAN) HLA TYPING (SOLID ORGAN) Routine Alcoholic cirrhosis, unspecified whether ascites present ESRD (end stage renal disease) on dialysis Pre-transplant evaluation for liver transplant 10/12/2018 12:57 PM [facility] Work Phone: HSV 1 AND 2 IGG ANTIBODY HSV 1 AND 2 IGG ANTIBODY Routine Alcoholic cirrhosis, unspecified whether ascites present ESRD (end stage renal disease) on dialysis Pre-transplant evaluation for liver transplant 10/12/2018 12:57 PM [facility] Work Phone: 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 specific culture [facility] PLACEMENT NEPHROSTOM Y CATHETER PERCUTANEOUS W/ IMAGE GUIDANCE PLACEMENT NEPHROSTOMY CATHETER PERCUTANEOUS W/ IMAGE GUIDANCE Imaging Routine Hydronephrosis due to obstruction of ureteral orifice FAYE (acute kidney injury) 05/17/2022 11:08 AM EDT [facility] IN POST VOID RESIDUAL IN POST VO ID RESIDUAL IN - OFFICE PERFORMED Routine BPH with obstruction/lower urinary tract symptoms Ordered: 09/10/2022 [facility] Comment on above: Ordered: 09/10/2022 PTH INTACT PTH INTACT Routi ne Alcoholic cirrhosis, unspecified whether ascites present ESRD (end stage renal disease) on dialysis Pre-transplant evaluation for liver transplant 10/12/2018 12:57 PM [facility] Work Phone: RUBEOLA IGG AB (IMMU NE STATUS) RUBEOLA IGG AB (IMMUNE STATUS) Routine Alcoholic cirrhosis, unspecified whether ascites present ESRD (end stage renal disease) on dialysis Pre-transplant evaluation for liver transplant 10/12/2018 12:57 PM [facility] Work Phone: End: 01-16-2024 Standard ECG ECG ECG Routine One Time for 1 Occurrences starting 01/16/2024 until 01/16/2024 [facility] Comment on above: One Time for 1 Occurrences starting 12/31 until 01/16/2024 End: 09-10-2024 TACROLIMUS LEVEL, TROUGH (PRE DRUG LEVEL) [facility] VARICELLA IGG AB (IM M STATUS) VARICELLA IGG AB (IMM STATUS) Routine Alcoholic cirrhosis, unspecified whether ascites present ESRD (end stage renal disease) on dialysis Pre-transplant evaluation for liver transplant 10/12/2018 12:57 PM EST [facility] Work Phone: Immunizations Immunization Date Immunization Notes Care Provider Fa jimmyty 11-03-2023 influenza virus vacc ine, unspecified formulation Generic Provider [facility] 11-03-2023 Moderna SARS-CoV-2 50mcg/0.5mL Booster Generic Provider [facility] Payers Date Payer Category Payer Unknown [id number] 2019 Unknown [facility] [id number] 2019-Present [id number] 2018 Medicaid MEDICAID [facility] DEPT OF JOB xxxxxxxxxxxx 2018-Present [phone] [address] [place] [address] xxxxxxxxxxxx [id number] [id number] 2018 Medicaid MEDICAID MEDICAI D [id number] 2018-Present [address] [place] [address] [id number] .[id number] 2018 Medicaid [id number] [id number] .[id number] 2018 Medicare MEDICARE MEDICAR E PART A AND B xxxxxxxxxxx 2018-Present [phone] [place] [address] xxxxxxxxxxx [id number] .[id number] 2018 Medicare [id number] 2018 Medicare MEDICARE MEDICAR E A AND B [id number] 2018-Present [address] [place] [address] [id number] [id number] .[id number] 2018 Medicare 1.2.840.352379. 1.13.172.2.7.3 .274353.315 1971 Unknown [id number] 2.16.840.1.317865.3.579.2.173 1971 Unknown [id number] 2.16.840.1.348839.3.579.2.173 1971 Unknown [id number] 2.16.840.1.805935.3.579.2.173 1971 Unknown [id number] 2.16.840.1.255834.3.579.2.173 1971 Unknown [id number] 2.16.840.1.491933.3.579.2.173 1971 Unknown [id number] 2.16.840.1.416358.3.579.2.173 1971 Unknown [id number] 2.16.840.1.231834.3.579.2.173 1971 Unknown [id number] 2.16.840.1.949629.3.579.2.173 1971 Unknown [id number] 2.16.840.1.937899.3.579.2.647 1971 Unknown [id number] 2.16.840.1.654014.3.579.2.593 1971 Unknown [id number] 2.16.840.1.558096.3.579.2.593 1971 Unknown [id number] 2.16.840.1.489032.3.579.2.593 1971 Unknown [id number] 2.16.840.1.952728.3.579.2.593 1971 Unknown [id number] 2.16.840.1.949917.3.579.2.593 1971 Unknown [id number] 2.16.840.1.704741.3.579.2.593 1971 Unknown [id number] 2.16.840.1.926582.3.579.2.593 1971 Unknown [id number] 2.16.840.1.219426.3.579.2.593 1971 Unknown [id number] 2.840.1.367063.3.579.2.593 1971 Unknown [id number] 2.840.1.613442.3.579.2.593 1971 Unknown [id number] 2.840.1.149455.3.579.2.593 1971 Unknown [id number] 2.840.1.266261.3.579.2.593 1971 Unknown [id number] 2.840.1.838199.3.579.2.593 1971 Unknown [id number] 2.840.1.010178.3.579.2.593 1971 Unknown [id number] 2.840.1.317989.3.579.2.593 1971 Unknown [id number] 2.16.840.1.949214.3.579.2.594 1971 Unknown [id number] 2.16.840.1.022363.3.579.2.594 1971 Unknown [id number] 2.16.840.1.626983.3.579.2.594 1971 Unknown [id number] 2.840.1.183792.3.579.2.594 1971 Unknown [id number] 2.16.840.1.042311.3.579.2.594 1971 Unknown [id number] 2.16.840.1.239331.3.579.2.594 1971 Unknown [id number] 2.16.840.1.864519.3.579.2.594 1971 Unknown [id number] 2.16.840.1.169343.3.579.2.594 1971 Unknown [id number] 2.16.840.1.146349.3.579.2.594 1971 Unknown [id number] 2.16.840.1.751368.3.579.2.594 1971 Unknown [id number] 2.16.840.1.901527.3.579.2.594 1971 Unknown [id number] 2.16.840.1.558740.3.579.2.594 1971 Unknown [id number] 2.16.840.1.386494.3.579.2.125 9 1971 Unknown [id number] 2.16.840.1.519943.3.579.2.125 9 1971 Unknown [id number] 2.16.840.1.367430.3.579.2.125 9 1971 Unknown [id number] 2.16.840.1.857220.3.579.2.125 9 1971 Unknown [id number] 2.16.840.1.473423.3.579.2.125 9 1971 Unknown [id number] 2.16.840.1.267082.3.579.2.125 9 1971 Unknown [id number] 2.16.840.1.354059.3.579.2.125 9 1971 Unknown [id number] 2.16.840.1.579092.3.579.2.125 9 1971 Unknown [id number] 2.16.840.1.972424.3.579.2.125 9 1959 Medicaid [id number] 1959 Medicare [id number] Social History Date Type Detail Facility Start: 07-19-2018 End: 10-19-2018 Tobacco smoking status NHIS Former smoker [facility] Start: 07-19-1988 End: 05-14-2018 History of tobacco use Current smoker [facility] Work Phone: Start: 07-19-1988 End: 05-14-2018 History of tobacco use Cigarette Smoker [facility] Work Phone: Start: 10-19-2018 End: 02-26-2024 Cigarettes smoked current (pack per day) - Reported [facility] End: 07-19-1994 History of tobacco use Chews Tobacco [facility] Work Phone: Start: 1970 Sex Assigned At Not on file [facility] Work Phone: Start: 11-03-2018 Alcohol intake Current non-drinker of alcohol (finding) [place] Start: 06-22-2018 Alcohol Comment Hx of alcoholism [place] Start: 11-03-2018 End: 02-26-2024 Alcohol intake No [facility] Start: 07-19-2018 Tobacco use and exposure Former user [facility] Start: 09-06-2020 End: 02-26-2024 Alcohol intake Ex-drinker (finding) [facility] Start: 07-19-2018 Alcohol Comment stopped 05/14/2018 [facility] Start: 05-05-2022 End: 01-16-2023 Exposure to SARS-CoV-2 (event) Not sure [facility] Start: 07-07-2018 Gender identity Identifies as male gender (finding) [facility] Start: 01-16-2022 Sexual orientation Heterosexual (finding) [facility] Start: 11-03-2023 Tobacco use and exposure [...] To some extent [facility] (I/We) worried whe er (my/our) food would run out before (I/we) got money to buy more. Never true [facility] Start: 11-02-2023 Alcohol Comment Former [facility] Medical Equipment Procedure Code Equipment Code Equipment Original Text Equipment Identifier Dates [id number] Start: 05-23-2020 [id number] Start: 04-12-2020 [id number] FDA Start: 05-17-2022 Comment on above: Description: Implant time-out completed by intra-procedural staff including this RN, oxygen equipment technician, and performing physician. The following was [...] up del of broth Contact Info: Specialty (Yanci) [phone] [facility] [phone] [facility] [phone] David [phone] Bedside Delivery ([facility]) [phone] [facility] RX OUTREACH ADVANCED: Call Information: Date and Time of Contact: 03/02/2024 3:49 PM Method of Contact: By Phone Contact Type: Prescriptions Contactor: [facility] Contactee: Patient Contact Outcome: Left message and Follow-up Shipping/Pickup: Medication Name: Myco 360mg and Prograf 0.2mg Contact Info: Specialty (Yanci) [phone] [facility] [phone] [facility] [phone] David [phone] Bedside Delivery ([facility]) [phone] [facility] RX OUTREACH ADVANCED: Call Information: Date and Time of Contact: 03/02/2024 4:08 PM Method of Contact: By Phone Contact Type: Prescriptions Contactor: [facility] OP Contactee: Patient Shipping/Pickup: Medicare B Refill?: No Medication Name: Myco 360 / prograf 0.2 Delivery Method: Ship Delivery Location: Home Signature Required: No Receive/Pickup Date: 03/03/2024 Shipping Address: [address] [place] [address] [address] Contact Info: Specialty (Yanci) [phone] [facility] [phone] [facility] [phone] David [phone] Bedside Delivery ([facility]) [phone] documented in this encounter [facility] 02-26-2024 History of Present illness Narrative [...] presents to the HF Clinic at the [facility] on 02/26/2024 for initial evaluation of [...] Left; Surgeon: Jyoti Bryant MD, PhD; Location: [facility] MAIN OR PLACEMENT NEPHROSTOMY CATHETER PERCUTANEOUS W/ IMAGE GUIDANCE 05/17/2022 Surgeon: Enzo Heart DO; Location: [facility] INTERVENTIONAL RADIOLOGY (VIR) LIVER TRANSPLANT, ORTHOTOPIC N/A 04/12/2020 Laterality: N/A; Surgeon: LU Palma; Location: [facility] SAME DAY SURGERY MAIN OR KIDNEY TRANSPLANT W/O GALENA NEPHRECTOMY N/A 04/12/2020 Laterality: N/A; Surgeon: LU Palma; Location: [facility] SAME DAY SURGERY MAIN OR [...] qd Antithrombotic: no Statin: no ICD: NA SENIOR WATER/WASTEWATER ENGINEER: NA CV Test results: ECHOCARDIOGRAM 01/18/2024 (Final) Interpretation Summary Left Ventricle: Chamber size is normal. Increased wall thickness. Concentric hypertrophy. Normal global systolic function. Regional wall motion is normal. Ejection fraction is normal (55 - 60%). Right Ventricle: Chamber size is normal. Systolic function is low normal. No hemodynamically significnat valve disease. Moderate pericardial effusion. There is no evidence of tamponade. [facility] (01/20/24) Hemodynamic Summary: Baseline Hemodynamics Systemic [...] will be BP control. Candie Almaguer M.D. radio operator Advanced Heart Failure Program Division of Cardiovascular Medicine [facility] [email or web address] [phone] fax [phone] documented in this encounter [facility] 02-26-2024 Instructions Marsha Mckeon RN - 02/26/2024 9:30 AM EDT The following instructions were given today: Labs today Follow up with Dr. Almaguer as needed. Your after visit summary (AVS) is viewable in [facility] My Chart. Call RN if you have cardiac questions/concerns M-F 8 to 4:30 ; office # [phone], option 6, then option 2. Guidelines for home management: 1. Continue to monitor weight first thing each morning. 2. Report to the [facility]F CLINIC ([phone]) any significant weight change. Remember that weight [...] we received the results. Office fax # [phone]. No news does not necessarily mean that your tests are normal, it could mean we did not get the results. For questions/updates: please provide your name with spelling, date of and question or update All calls are prioritized and responses researched, if possible, prior to calls being returned. Call Scheduling for any appointment/procedure verification or changes [phone], option 7 or [facility] Schedul[facility] at [phone], option 1. documented in this encounter [facility] 01-23-2024 Nurse Note Jakob wrap & [...] understanding on picking up needed prescriptions at [facility] pharmacy as listed on discharge summary. Patient denies any unanswered questions at this time. Patient has been discharged with all of their belongings, transported via wheelchair on oxygen to front entrance for brother to transport home on home oxygen supply. [facility] 01-23-2024 Miscellaneous Notes Jakob wrap & [...] understanding on picking up needed prescriptions at [email or web address] pharmacy as listed on discharge summary. 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] POST OPERATIVE DIAGNOSIS Post-Op Diagnosis Codes: * High output congestive heart failure [I50.83] PROCEDURE PERFORMED Procedure(s) (LRB): LIGATION ANGIOACCESS AVF (Left) Resection of large aneurysmic vein PRIMARY CLOSURE Yes INTRAOPERATIVE FINDINGS No significant abnormalities SURGEON Surgeons and Role: * Jyoti Bryant MD, PhD - Primary ANESTHESIOLOGIST Anesthesiologist: Celena Tiwari MD; Kehinde Gutierrez MD PUDDLER PILE DRIVING: David Jasso APRN-PUDDLER PILE DRIVING Nurse Supervisor Assisting: Mini Khan MD SURGICAL STAFF Solder Technician: Zoila Lawrence RN Relief Solder Technician: Marimar Saravia RN Relief Scrub: Briseyda Self [...] patient breathing easily. Report received from surgical garment assembler and report received from anesthesiology. Pt arrived [...] Axillary block. SURGEON(S): Jyoti Bryant MD, PHD CRIMINAL JUSTICE DEPARTMENT CHAIR: Mynor Fall MD ESTIMATED BLOOD LOSS: Minimal. [...] Jyoti Bryant MD, PHD ATTENDING SHANNON/Constanza JOB: [id number] DOC: [id number] Patient has been asleep this shift. He [...] overnight coverage, Jasper Gastelum MD, via pager #[phone] Pt- Mark. Jensen Sarah 1082. TM1. Was wondering if he can have his Melatonin order increased to 6mg. Per pt, he usually takes 8mg at home. -SAMI Duffy #[phone] Tati Krance, RN Internal Medicine Daily Progress Note Patient: George Styles, 1970, [id number] Physician: Arelis Mera MD, PGY3, Pager #[phone], TM1 service Assessment/Plan: George Styles is a [...] home amlodipine 5mg CAD: non-obstructive CAD on [facility] 2018. - continue home aspirin [...] Mera MD Mr. Styles was admitted to [address] [place] [address]. On admission to [facility], from outside facility a dual RN initial assessment of skin condition was performed by Izzy Gutierrez RN and Leroy Singleton RN. Skin Assessment: Skin within defined limits:Yes Jose Score: 20 Wound Vision Improvement Engineer images obtained: No LDA Added: No Based [...] station when available. documented in this encounter [facility] 01-23-2024 Nurse Note Home Oxygen Qualification [...] at 4L of oxygen is also required.) [facility] 01-23-2024 History of Present illness Narrative [...] 20 mg Oral Daily Kelvin Pacheco MD, LU real estate professor Transplant nephrology Surgery Post-Op Check Note [...] monitor Leonel Harris DO General Surgery Pager [phone] CM went to bedside to talk with patient. Patient states he has home oxygen through [employer]. He uses 2.5 LNC around the clock. Patient states his brother will bring a tank for discharge. Anticipate patient will discharge tomorrow AM. Brother updated. Girish Oro RN, BSN Clinical Pancake Professional Please note that I am a float family preservation caseworker and may not cover the same service every day. Please call the main Case Management office at [phone] for up-to-date coverage. Verified patients identity using [...] Daily Progress Note Patient: George Styles, 1970, [id number] Physician: Yury Ozuna MD, PGY1, Pager #[phone], TM1 service Assessment/Plan: George Styles is a [...] by transplant surgery on 01/22 (NPO at nd, updated type & screen) S/p Liver-Kidney Transplant [...] home amlodipine 5mg CAD: non-obstructive CAD on [facility] 2018. - continue home aspirin [...] with the Nutrition plan outlined in the Account Director s note. DVT prophylaxis with lovenox Diet [...] in resident note. Kelvin Pacheco MD, MBBS real estate professor Transplant nephrology Patient seen and examined [...] mg Oral BID AC Kelvin Pacheco MD, LU real estate professor Transplant nephrology Images from the original note were not included. Internal Medicine Daily Progress Note Patient: George Styles, 1970, [id number] Physician: Yury Ozuna MD, PGY1, Pager #[phone], TM1 service Assessment/Plan: George Styles is a [...] home amlodipine 5mg CAD: non-obstructive CAD on [facility] 2018. - continue home aspirin [...] with the Nutrition plan outlined in the Account Director s note. DVT prophylaxis with lovenox Diet [...] 611) Ptt/Pt/Inr: 30.6/15.5/1.2 (01/20 611) Doppler US LUJyoti AVF: Associated attestation - Kelvin Pacheco MD, [...] Provider: Zuly Bruno NP Pharmacy: [facility] Other Comments: Patient reported his Last Home Dose of mycophenolate and tacrolimus was on 01/15/24 at 0700. Medications that need removed from Outside Medication Reconciliation list: Please remove all medications. Please feel free to contact me with any further questions. Name: Heidy Chatman Phone #: [phone] Date/Time: 01/19/2024 12:08 PM Time Spent: 15 minutes Associated attestation - Fidelina Alarcon RPH - 01/19/2024 12:41 PM EST Department of Pharmacy Admission Medication Reconciliation Note Patient: George Styles Room/Bed: 1082/A I have reviewed the home medication list with the Driller Multiple Spindle. The home medication list status is: complete. All changes to the home medication list have been updated in [facility]. Updated ELEMENTARY EDUCATOR Med List: Prior to Admission Medications Prescriptions [...] me with any further questions. Name: Fidelina Alarcon, [facility] Phone #: [phone] Date/Time: 01/19/2024 12:41 PM Internal Medicine Daily Progress Note Patient: George Styles, 1970, [id number] Physician: Yury Ozuna MD, PGY1, Pager #[phone], TM1 service Assessment/Plan: Acute Hypoxic Respiratory Insufficiency [...] home amlodipine 5mg CAD: non-obstructive CAD on [facility] 2018. - continue home aspirin [...] with the Nutrition plan outlined in the Account Director s note. DVT prophylaxis with lovenox Diet [...] today, obtain fistula duplex US. Objective: Vitals: 01/19/24 0900 BP: Pulse: 55 Resp: Temp: SpO2: 97% [...] HCl 0.4 mg Oral Daily Kelvin Pacheco MDLU real estate professor Transplant nephrology Internal Medicine Daily Progress Note Patient: George Styles, 1970, [id number] Physician: Yury Ozuna MD, PGY1, Pager #[phone], TM1 service Assessment/Plan: Updates: - continued diuresis [...] home amlodipine 5mg CAD: non-obstructive CAD on [facility] 2018. - continue home aspirin [...] with the Nutrition plan outlined in the Account Director s note. DVT prophylaxis with lovenox Diet [...] C) SpO2: 92% O2 Device: nasal cannula (01/18/24 0925) Flow (L/min): 4 (01/18/24924) Gen: NAD HENT: [...] in resident note. Kelvin Pacheco MD, MBBS real estate professor Transplant nephrology Pt known to quality control head from previous admissions. Provided emotional and spiritual support. Patient shared about: family support, medical course Black And White Printer Operator provided: - Supportive presence - Active listening - Validation of feelings/emotions Patient encouraged to request a quality control head as needed. Chaplains are available in-house 24 hours a day and 7 days a week. For urgent matters in [facility], please page [phone]. If the request is not urgent, please enter a consult. Consults are responded to within 24 hours. Senior Staff Black And White Printer Operator Angie Singh Mdiv, [facility] [place] [phone] [email or web address] On-call [facility]: patient account analyst David: 22/06 Pager ,BSLydia, and Brock Maciel Pager [phone] 01/18/24 1342 Clinical Encounter Type Visited With Patient Visit Type Introduction Pastoral Time Spent 15 min Referral Other (See Comment) (rounding) Spiritual Assessment Emotional Observation Coping well;Anxiety Hope Observation Specific hope focus Support Observation By Family Interventions Provided Active listening;Supportive presence Facilitated Verbalization of feelings;Identifying support system;Identifying Sources of spiritual well-being Explored Expectations;Treatment decisions Registered Pharmacy Technician Education Registered Pharmacy Technician Service Available Yes Educated Patient Outcomes Patient [...] interaction. Name: Fidelina Alarcon RPH Phone #: [phone] Date/Time: 01/18/2024 9:56 AM Discharge Planning Patient [...] Yes Name and Contact information: Gian Styles ([phone]) Would you like to add additional adult [...] oxygen?: Yes Oxygen Provider and Contact : [employer] Liter-Flow?: 20/01- Order for oxygen use?: unknown at this [...] the patient on Anticoagulation? : No [id number] [place] [address] - [address] [address] [place] Does the patient or sales representative public utilities express financial concerns? : No Employed?: Disabled Coping/Stress Concerns about patient s coping and stress?: No Concerns about patient s caregiver s coping and stress?: No Values and Beliefs Cultural or druze practices that may impact discharge planning and/or [...] Plan 1. Identified self and role as Pancake Professional. 2. Confirmed and updated demographics and treatment team. 3. Pancake Professional will continue to follow with medical team for any other additional discharge needs. Kasandra DON RN [facility] [phone] *Please note I am float CM and work Thursday and Thursday every other week. Please call [phone] for assist in my absence. Internal Medicine Daily Progress Note Patient: George Styles, 1970, [id number] Physician: Yury Ozuna MD, PGY1, Pager #[phone], MB0 service Assessment/Plan: Updates: - continue diuresis with [...] home amlodipine 5mg CAD: non-obstructive CAD on [facility] 2018. - continue home aspirin [...] C) SpO2: 92% O2 Device: nasal cannula (01/17/241041) Flow (L/min): 2 (01/17/24 0833) Gen: NAD, [...] 3 completed shifts: In: 1210 [P.O.:1210] Out: 2000 [Urine:2000] I/O this shift: In: 540 [P.O.:540] [...] ordered 2D echo. Kevin Prince MD, MADISONN Commercial Finance Analyst of Clinical Medicine [facility] documented in this encounter [facility] 01-23-2024 Plan of care note Patient [...] Symptoms (Acute Pain): verbalization of pain descriptors [facility] 01-22-2024 Hospital Discharge instructions Arelis Mera [...] your doctor for further instructions. Please call [phone], Option 1 or [phone] to schedule your appointment with the Heart Failure Clinic. 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] POST OPERATIVE DIAGNOSIS Post-Op Diagnosis Codes: * High output congestive heart failure [I50.83] PROCEDURE PERFORMED Procedure(s) (LRB): LIGATION ANGIOACCESS AVF (Left) Resection of large aneurysmic vein PRIMARY CLOSURE Yes INTRAOPERATIVE FINDINGS No significant abnormalities SURGEON Surgeons and Role: * Jyoti Bryant MD, PhD - Primary ANESTHESIOLOGIST Anesthesiologist: Celena Tiwari MD; Kehinde Gutierrez MD PUDDLER PILE DRIVING: David Jasso APRN-PUDDLER PILE DRIVING Nurse Supervisor Assisting: Mini Khan MD SURGICAL STAFF Solder Technician: Zoila Lawrence RN Relief Solder Technician: Marimar Saravia RN Relief Scrub: Briseyda Self Scrub Person: Cinda Mai RN Resident Assisting: Leonel Harris DO Fellow: Miki Mcgowan MD, MBBS COMPLICATIONS None ESTIMATED BLOOD LOSS Minimal SPECIMENS No specimen sent * No specimens in log * Jyoti Bryant MD, PhD January 22, 2024 1:34 PM [facility] Work Phone: 01-22-2024 Nurse Note Arrived to PACU assisted by anesthesiology. Connected to monitors. Turned side to side, OR linens removed, repositioned. Airway patent, patient breathing easily. Report received from surgical garment assembler and report received from anesthesiology. Pt arrived awake. VSS. Sats slightly low. Pulm rehab used. Sats currently 3lpm @ 93%. Pt states he uses CPAP nocturnally. A&Ox4. Nerve block left arm, elevated. [facility] 01-22-2024 Surgery Postoperative evaluation and management [...] Axillary block. SURGEON(S): Jyoti Bryant MD, PHD CRIMINAL JUSTICE DEPARTMENT CHAIR: Mynor Fall MD ESTIMATED BLOOD LOSS: Minimal. [...] Jyoti Bryant MD, PHD ATTENDING SHANNON/Constanza JOB: [id number] DOC: [id number] [facility] 01-22-2024 Plan of care note Patient [...] 1939 Plan Of Care Reviewed With: patient [facility] 01-20-2024 Consult note Associated Order (s): IP CONSULT TO SURGERY - TRANSPLANT (RENAL) Images from the original note were not included. TRANSPLANT SURGERY CONSULT NOTE: Consult: 01/20/2024, 4:03 PM Fur Tailor: Starla Morris MD Reason for Consult: Requesting Dr Carson Bryant for AVF revision/closure given new onset high output heart failure George Styles is a 53 y.o. male CURRENT HOSPITALIZATION LOS: Admit Date: 01/16/2024 [facility] Hospital LOS: 4 days George [...] 04/12/2020 Laterality: N/A; Surgeon: LU Palma; Location: [facility] SAME DAY SURGERY MAIN OR KIDNEY TRANSPLANT W/O GALENA NEPHRECTOMY N/A 04/12/2020 Laterality: N/A; Surgeon: LU [...] Timothy Joseph MD 100 mg at 01/20/24 09 Melatonin tablet 6 mg 6 mg Oral QHS PRN Jasper Groves MD 6 mg at 01/19/24 2044 Mycophenolate sodium (MYFORTIC) tablet DR 360 mg [...] Studies: Labs-CBC: WBC/Hgb/Hct/Plts: 3.79/12.5/38.9/166 (01/20 611) Labs-Chem 7([facility]): Bun/Creat/Cl/CO2/Glucose: 15/1.12/105/28/88 (01/20 611) Na/K+/Phos/Mg/Ca: [...] seen and staffed with Dr. Mcgowan fellow supply person Thank you, Starla Morris MD Associated attestation - Jyoti Bryant MD, PhD - 01/22/2024 10:54 AM EST Beata Bryant MD, PhD, have independently seen and examined the patient, reviewed the labs, discussed the patient with the fellow/resident and agree with the note. [facility] Work Phone: 01-20-2024 Consult note Associated Order (s): IP CONSULT TO SURGERY - TRANSPLANT (RENAL) Images from the original note were not included. TRANSPLANT SURGERY CONSULT NOTE: Consult: 01/20/2024, 4:03 PM Fur Tailor: Starla Morris MD Reason for Consult: Requesting Dr Carson Bryant for AVF revision/closure given new onset high output heart failure George Styles is a 53 y.o. male CURRENT HOSPITALIZATION LOS: Admit Date: 01/16/2024 [facility] Hospital LOS: 4 days George [...] GUIDANCE 05/17/2022 Surgeon: Enzo Heart DO; Location: [facility] INTERVENTIONAL RADIOLOGY (VIR) LIVER TRANSPLANT, ORTHOTOPIC N/A 04/12/2020 Laterality: N/A; Surgeon: LU Palma; Location: [facility] SAME DAY SURGERY MAIN OR KIDNEY TRANSPLANT W/O GALENA NEPHRECTOMY N/A 04/12/2020 Laterality: N/A; Surgeon: LU Palma; Location: [facility] SAME DAY SURGERY MAIN OR [...] Studies: Labs-CBC: WBC/Hgb/Hct/Plts: 3.79/12.5/38.9/166 (01/20 611) Labs-Chem 7([facility]): Bun/Creat/Cl/CO2/Glucose: 15/1.12/105/28/88 (01/20 611) Na/K+/Phos/Mg/Ca: [...] seen and staffed with Dr. Mcgowan fellow supply person Thank you, Starla Morris MD Associated attestation [...] 04/12/2020 Laterality: N/A; Surgeon: LU Palma; Location: [facility] SAME DAY SURGERY MAIN OR KIDNEY TRANSPLANT W/O GALENA NEPHRECTOMY N/A 04/12/2020 Laterality: N/A; Surgeon: LU Palma; Location: [facility] SAME DAY SURGERY MAIN OR [...] (order for outpatient) Please SecureChat or Call ([phone]) for any questions. Await attending attestation for final recommendations. Hank Noel MD Division of Gastroenterology, Hepatology, and Nutrition Clinical Fellow, PGY-5 Pager: [phone] For urgent/stat calls or consults 5pm to 7am, please page the on-call GI fellow on [employer]. [facility]--> Internal Medicine--> Gastroenterology, Hepatology, & Nutrition--> 1st Call Fel Alysia For urgent/stat calls or consults 7am to 5pm during the weekend, please page the on-call GI fellow on [employer]. [facility]--> Internal Medicine--> Gastroenterology, Hepatology, & Nutrition--> All Hep & East Wknd Cons Fel Day For follow up questions regarding this patient 7am to 5pm during the weekday, contact the Hepatology consults fellow or CARLOS A on [employer]. [facility]--> Internal Medicine--> Gastroenterology, Hepatology, & Nutrition--> [...] Estrada MD, MSc documented in this encounter [facility] 01-19-2024 Nurse Note 01/19/24 0900 Vitals [...] 97-99% at rest, 95-96% when talking/moving. Paulette Cordon, RN [facility] 01-19-2024 Nurse Note Paged overnight coverage, Jasper Gastelum MD, via pager #[phone] Pt- George Styles. Sarah 1082. TM1. Was wondering if he can have his Melatonin order increased to 6mg. Per pt, he usually takes 8mg at home. -SAMI Duffy #[phone] Tati Charles RN [facility] 01-18-2024 Consult note Associated Order (s): IP CONSULT TO HEPATOBILIARY [facility] OS Main Hepatology Consult WebExchange --> IM Consult Serv GH --> OS Main Hepatology consult service Fellow HEPATOLOGY INPATIENT [...] DAY SURGERY MAIN OR KIDNEY TRANSPLANT W/O GALENA NEPHRECTOMY N/A 04/12/2020 Laterality: N/A; Surgeon: LU Palma; Location: [facility] SAME DAY SURGERY MAIN OR [...] (order for outpatient) Please SecureChat or Call ([phone]) for any questions. Await attending attestation for final recommendations. Hank Noel MD Division of Gastroenterology, Hepatology, and Nutrition Clinical Fellow, PGY-5 Pager: [phone] For urgent/stat calls or consults 5pm to 7am, please page the on-call GI fellow on [employer]. [facility]--> Internal Medicine--> Gastroenterology, Hepatology, & Nutrition--> 1st Call Fel Alysia For urgent/stat calls or consults 7am to 5pm during the weekend, please page the on-call GI fellow on [employer]. [facility]--> Internal Medicine--> Gastroenterology, Hepatology, & Nutrition--> All Hep & East Wknd Cons Fel Day For follow up questions regarding this patient 7am to 5pm during the weekday, contact the Hepatology consults fellow or CARLOS A on [employer]. [facility]--> Internal Medicine--> Gastroenterology, Hepatology, & Nutrition--> [...] (order for outpatient) Michael Estrada MD, MSc [facility] Work Phone: 01-16-2024 Plan of care note Internal Medicine Daily Progress Note Patient: George Styles, 1970, [id number] Physician: Arelis Mera MD, PGY3, Pager #[phone], TM1 service Assessment/Plan: George Styles is a [...] home amlodipine 5mg CAD: non-obstructive CAD on [facility] 2018. - continue home aspirin [...] MD, on rounds. Signed, Arelis Mera MD [facility] 01-16-2024 Nurse Note Mr. Styles was admitted to [address] [place] [address]. On admission to 0, from outside facility a dual RN initial assessment of skin condition was performed by Izzy Gutierrez RN and Leroy Singleton RN. Skin Assessment: Skin within defined limits:Yes Jose Score: 20 Wound Vision Improvement Engineer images obtained: No LDA Added: No Based [...] room closest to nurses station when available. [facility] 01-16-2024 History and physical note Images from the original note were not included. Internal Medicine Admission History & Physical Patient: George Styles, 1970, [id number] Physician: Timothy Joseph MD, PGY1, Pager #[phone], TM 1 service Date of face to [...] DAY SURGERY MAIN OR KIDNEY TRANSPLANT W/O GALENA NEPHRECTOMY N/A 04/12/2020 Laterality: N/A; Surgeon: LU [...] itraconazole Fax results to: Dr. White - [phone] Transplant Neph - [phone] Gabapentin 400 MG capsule Sig: Take 1 [...] erythema: Skin: No jaundice or rash Neuro: radio tester 3-7, 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 Strength grossly [...] home amlodipine 5mg CAD: non-obstructive CAD on [facility] 2018. - continue home aspirin 81mg daily Gout: continue home allopurinol 200mg daily BPH: continue home flomax 0.4mg daily Complexity. Obesity Body mass index is 32.8 kg/m . - Follow with PCP for dietary and lifestyle modifications. Any conditions listed below are present on admission unless otherwise specified. . DVT prophylaxis with lovenox Disposition: admitted to [facility] Code status is Full Staffed with Timothy [...] on right [J90]. Transplant Physician: Erma Canas, Fidelina Pierson, Luisa Steven, Renee Rivera, Daisha Max Auto Body Man: José Miguel Garnica All Txt: 04/13/2020 (Kidney), [...] results found for: CYCLOSPORIN , CYCLOSPORIN2 , [id number] , CYCLORAND No results found for: SIROLIMUS [...] request in chart. Kevin Prince MD Pager [phone] [facility] 01-16-2024 History and physical note Images from the original note were not included. Internal Medicine Admission History & Physical Patient: George Styles, 1970, [id number] Physician: Timothy Joseph MD, PGY1, Pager #[phone], TM 1 service Date of face to [...] GUIDANCE 05/17/2022 Surgeon: Enzo Heart DO; Location: [facility] INTERVENTIONAL RADIOLOGY (VIR) LIVER TRANSPLANT, ORTHOTOPIC N/A 04/12/2020 Laterality: N/A; Surgeon: LU Palma; Location: [facility] SAME DAY SURGERY MAIN OR KIDNEY TRANSPLANT W/O GALENA NEPHRECTOMY N/A 04/12/2020 Laterality: N/A; Surgeon: LU Palma; Location: [facility] SAME DAY SURGERY MAIN OR [...] itraconazole Fax results to: Dr. White - [phone] Transplant Neph - [phone] Gabapentin 400 MG capsule Sig: Take 1 capsule by mouth at bedtime. Itraconazole 10 MG/ML Solution Sig: Take 10 mL by mouth every 12 hours. Mycophenolate sodium (MYFORTIC) [address] franko DIAZ Sig: Take 1 tablet by mouth every [...] erythema: Skin: No jaundice or rash Neuro: radio tester 3-7, 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 Strength grossly equal in muscle groups of the bilateral UEs and LEs. Psych: Ox3, appropriate affect and cognition Data Review: Additional Labs: Imaging: ECG Impression/Plan: eGorge Styles is a 53 y.o. male with [...] home amlodipine 5mg CAD: non-obstructive CAD on [facility] 2018. - continue home aspirin 81mg daily Gout: continue home allopurinol 200mg daily BPH: continue home flomax 0.4mg daily Complexity. Obesity Body mass index is 32.8 kg/m . - Follow with PCP for dietary and lifestyle modifications. Any conditions listed below are present on admission unless otherwise specified. . DVT prophylaxis with lovenox Disposition: admitted to [facility] Code status is Full Staffed with Dr. [...] Pierson, Luisa Steven, Renee Rivera, Daisha Max Auto Body Man: José Miguel Garnica All Txt: 04/13/2020 (Kidney), [...] results found for: CYCLOSPORIN , CYCLOSPORIN2 , [id number] , CYCLORAND No results found for: SIROLIMUS [...] request in chart. Kevin Prince MD Pager [phone] documented in this encounter [facility] 01-12-2024 History of Present illness Narrative [...] Name: Prograf 0.2 MG Contact Info: Specialty ([place]) [phone] [facility] [phone] [facility] [phone] David [phone] Bedside Delivery ([facility]) [phone] [facility] OP RX OUTREACH ADVANCED: Call Information: Date and Time of Contact: 01/25/2024 10:23 AM Method of Contact: By Phone Contact Type: Prescriptions Contactor: [facility] OP Contactee: Patient Contact Outcome: Left message (prograf myco) Contact Info: Specialty ([place]) [phone] [facility] [phone] [facility] [phone] David [phone] Bedside Delivery ([facility]) [phone] documented in this encounter [facility] 01-12-2024 History of Present illness Narrative [...] Name: Prograf 0.2 MG Contact Info: Specialty ([place]) [phone] [facility] [phone] [facility] [phone] David [phone] Bedside Delivery ([facility]) [phone] [facility] RX OUTREACH ADVANCED: Call Information: Date and Time of Contact: 01/25/2024 10:23 AM Method of Contact: By Phone Contact Type: Prescriptions Contactor: [facility] OP Contactee: Patient Contact Outcome: Left message (prograf myco) Contact Info: Specialty (Yanci) [phone] [facility] [phone] [facility] [phone] [facility] [phone] Bedside Delivery ([facility]) [phone] [facility] OP RX OUTREACH ADVANCED: Call Information: Date and Time of Contact: 01/27/2024 10:19 AM Method of Contact: By Phone Contact Type: Prescriptions Contactor: [facility] OP Contactee: Patient Contact Outcome: Left message (myco prograf) Contact Info: Specialty (Yanci) [phone] [facility] [phone] [facility] [phone] David [phone] Bedside Delivery ([facility]) [phone] documented in this encounter [facility] 01-12-2024 History of Present illness Narrative [...] Prograf 0.2 MG Contact Info: Specialty (Yanci) [phone] [facility] [phone] [facility] [phone] David [phone] Bedside Delivery ([facility]) [phone] [facility] OP RX OUTREACH ADVANCED: Call Information: Date and Time of Contact: 01/25/2024 10:23 AM Method of Contact: By Phone Contact Type: Prescriptions Contactor: [facility] OP Contactee: Patient Contact Outcome: Left message (prograf myco) Contact Info: Specialty (Yanci) [phone] [facility] [phone] [facility] [phone] [facility] [phone] Bedside Delivery ([facility]) [phone] [facility] OP RX OUTREACH ADVANCED: Call Information: Date and Time of Contact: 01/27/2024 10:19 AM Method of Contact: By Phone Contact Type: Prescriptions Contactor: [facility] OP Contactee: Patient Contact Outcome: Left message (myco prograf) Contact Info: Specialty (Yanci) [phone] [facility] [phone] [facility] [phone] David [phone] Bedside Delivery ([facility]) [phone] [facility] OP RX OUTREACH ADVANCED: Call Information: Date and Time of Contact: 02/01/2024 3:22 PM Contact Type: Prescriptions Contactor: [facility] OP Contactee: Patient Contact Outcome: Left message Shipping/Pickup: Medication Name: Mycophenolate 360mg and Prograf 0.2mg Pack Contact Info: Specialty (Yanci) [phone] Jakob [phone] [facility] [phone] David [phone] Bedside Delivery ([facility]) [phone] documented in this encounter [facility] 01-06-2024 History of Present illness Narrative [...] The neurologist wanted to send him to [facility] neurology but it is out of network [...] [facility] to see [facility]ist [facility] Immunocompromised ([facility] Hypertension ([facility]) No change in meds Check echo Relevant Orders Echocardiogram 2D complete Bilateral lower extremity edema Relevant Orders Echocardiogram 2D complete Shortness of breath Check ECHO Relevant Orders Echocardiogram 2D complete Other Visit Diagnoses 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) Atherosclerosis 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) documented in this encounter [facility] 10-06-2023 History of Present illness Narrative [...] ; Prograf 0.2 MG Contact Info: Specialty ([place]) [phone] [facility] [phone] [facility] [phone] David [phone] Bedside Delivery ([facility]) [phone] [facility] RX OUTREACH ADVANCED: Call Information: Date and Time of Contact: 10/23/2023 2:00 PM Method of Contact: By Phone Contact Type: Prescriptions Contactor: [facility] Contactee: Patient Contact Outcome: Left message and Call back later Shipping/Pickup: Medication Name: Mycophenolate 360mg and Prograf 0.2mg Contact Info: Specialty ([place]) [phone] [facility] [phone] [facility] [phone] David [phone] Bedside Delivery ([facility]) [phone] documented in this encounter [facility] 09-11-2023 Miscellaneous Notes Pt discharged home [...] during the night. pt will pick up attendant his oxygen from [employer] [facility], 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 This RN [...] Alejandra RN Patient seen ambulating in the gallo with REGIONAL ENVIRONMENTAL MANAGER. Patient was mildly short of breath on [...] discharge/transition of care. Outcome: Ongoing Flowsheets (Taken 09/07/2023 0423) Effective Oxygenation/Ventilation: making progress toward outcome Problem: [...] & HR 114. Messaged Mainor Loomis, via AskBot secure chat, Temp 100.8. His tylenol order [...] short period of time. 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 Episode of [...] Critical Care Medicine Message Mainor Loomis, via AskBot secure chat, Good evening, just an FYI, [...] short period of time. 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 This morning, [...] [address] Loera here also (inhalation therapy aide) Dr. Diaz aware of pt's increased oxygen [...] Guideline (CPG) Outcome: Ongoing Flowsheets (Taken 08/30/2023 1047) Related Risk Factors (Infection, Risk/Actual): chronic illness/condition immunosuppressed medication effects Signs and Symptoms (Infection, Risk/Actual): body temperature changes chills diaphoresis lab value changes malaise Goal: Infection Prevention/Resolution Description: Patient will demonstrate the desired outcomes by discharge/transition of care. Outcome: Ongoing Flowsheets (Taken 08/30/2023 104) Infection Prevention/Resolution: making progress toward outcome Problem: Infection, Risk/Actual (Adult) Intervention: Manage Suspected/Actual Infection Flowsheets (Taken 08/30/20231046) Fever Reduction/Comfort Measures: fluid intake increased lightweight bedding lightweight clothing medication administered Infection Management: aseptic technique maintained Intervention: Prevent Infection/Maximize Resistance Flowsheets Taken 08/30/2023 0748 Airway/Ventilation Management: pulmonary hygiene promoted Taken 08/29/2023 104 Sleep/Rest Enhancement: regular sleep/rest pattern promoted Sent a secure ChainalyticsIS chat to Rosi LUZ concerning patient's temp of 100.4 with no PRNs on board 2339: 650 mg of PRN tylenol given Problem: Breathing Pattern Ineffective (Adult) Goal: Identify Related Risk Factors and Signs and Symptoms Description: Related risk factors and signs and symptoms are identified upon initiation of Human Response Clinical Practice Guideline (CPG) Outcome: Ongoing Flowsheets (Taken 08/29/20231045) Related Risk Factors (Breathing Pattern Ineffective): underlying [...] Medicine-Pediatrics, PGY-2 Mr. Styles was admitted to [address] [place] [address]. On admission to [facility], from home a [...] station when available. documented in this encounter [facility] 09-11-2023 History of Present illness Narrative Provided follow-up emotional and spiritual support. Patient shared about rosemary of discharge and looking forward to seeing family Black And White Printer Operator provided: - Supportive presence - Active listening - Validation of feelings/emotions Patient encouraged to request a quality control head as needed. Chaplains are available in-house 24 hours a day and 7 days a week. For urgent matters in [facility], please page [phone]. If the request is not urgent, please enter a consult. Consults are responded to within 24 hours. Senior Staff Black And White Printer Operator Angie Singh Mdiv, [facility] [place] [phone] [email or web address] 22/06 On-call [place]: [phone] 22/06 Pager APOORVA SNIDERH, and Brock Maciel Pager [phone] 09/11/23 0070 Clinical Encounter Type Visited With Patient Visit Type Follow-up Pastoral Time Spent 15 min Referral Other (See Comment) (rounding) Spiritual Assessment Spiritual Observation Spirituality helpful Emotional Observation Coping well Hope Observation Specific hope focus Support Observation By Family Interventions Provided Active listening;Supportive presence Facilitated Verbalization of feelings Explored Expectations Registered Pharmacy Technician Education Registered Pharmacy Technician Service Available Yes Educated Patient Plan of Care Continue Visiting PRN Images from the original note were not included. [facility] Note: Non-Verbal Med Rec [facility] received the following discharge prescription(s): Total cost is $0. I have reviewed the Discharge Rx Reconciliation Report. The discharge prescription(s) will be delivered to the patient on 09/11/2023. Dimitrios Gurrola RPh,PharmD Specialty ([place]) [phone] [facility] [phone] [facility] Bedside Delivery [phone] [facility] [phone] [facility] Bedside Delivery [phone] [facility] [phone] [facility] Bedside Delivery [phone] [place] [phone] [place] [phone] Internal Medicine Daily Progress Note Patient: George Styles, 1970, [id number] Physician: Evan Kelly MD, PGY-1, TM1 service Subjective/Interval History: Patient continues to require oxygen overnight for desaturations. With insurance limitations, only accepting agency to provide home oxygen backed out. After calling them to discuss, Lynn stated she would be willing to have patient drive to their facility to pick up attendant supplies, however they close at 5pm. 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 - continue home aspirin [...] 5.05 (H) 11/19/2018 Kevin Prince MD, SERA Commercial Finance Analyst of Clinical Medicine [facility] Images from the original note were not included. Final Discharge Planning and Transportation Final Discharge Planning Discharge Disposition: Home Services at Discharge: Outpatient clinical services (ie: lab draws, transfusions, injectables) ([facility] Selected Continued Care - Admitted Since 08/28/2023 Durable Medical Equipment Coordination complete. Service Provider Selected Services Address Phone Fax Patient Preferred [facility] Durable Medical Equipment [facility] [address] Internal Comment last updated by Lora Lawrence RN 09/10/2023 1334 Correct contact information: [email or web address] [address] [place] [address] [place] [address] air chipper- you do not need to call at discharge, I already notified the company. Addendum [phone] [facility] notified this CM they are out of patient's insurance area and will not be able to service this patient at time of discharge. Provider notified. Addendum [phone] Dr Kelly called [facility] spoke to Lynn and she said they are willing to accept patient if the patient would drive to the [employer] office and pick up attendant the supplies. Patient is willing to do [...] Lora Colón RN, MSN, CCM, CMCN Clinical Pancake Professional- [facility] Transplant #[phone] Department of Pharmacy Transplant Note Patient: George [...] needed, a dose adjustment Name: Matt Kramer RPh, PharmD Phone: [phone] Date/Time: 09/10/2023 11:33 AM This CM sent referral via Panève for O2 concentrator to 4 agencies Start date today Timer set for 1330 [employer] [facility] [employer] Addendum 1332 One accepting company reserved in [employer] [address] [place] [address] [place] [address] Lora Colón RN, MSN, CCM, CMCN Clinical Pancake Professional- [facility] Transplant #[phone] NUTRITION FOLLOW-UP Nutrition Plan of Care: 1. Continue current diet order. 2. No oral supplements warranted at this time. 3. Monitor for significant weight changes. Monitor GI, skin integrity. 4. Monitor and encourage po intakes with goal of average po being 75-100%. 5. emergency technician to follow. ___ Met with patient today at bedside wearing mask. Current Diet Orders Procedures DIET REGULAR Standing Status: Standing Number of Occurrences: 1 Appetite: good Per doc flow sheet: Date Breakfast Lunch Dinner 10 -% 75% -% 10/9 100% 75% 100% 108 100% 100% 100% 10/ 100% 100% -% 10/6 -% -% -% [...] time. Will continue to monitor. RHIANNON [place]R Pager:[phone] Transplant Infectious Disease (Team 3) Progress Note [...] sign off. Please Epic message or page [phone] with questions. 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 - continue home aspirin [...] to follow. Please Epic message or page [phone] with questions. 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 - continue home aspirin [...] Daily Progress Note Patient: George Styles, 1970, [id number] Physician: Evan Kelly MD, PGY-1, TM1 service [...] s/p combined Liver-kidney transplant on 04/13/20. 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 - continue home aspirin [...] 5.05 (H) 11/19/2018 Kevin Prince MD, SERA Commercial Finance Analyst of Clinical Medicine [facility] Transplant Infectious [...] to follow. Please Epic message or page [phone] with questions. Ann Marie Haskins MD PGY-4, [...] he continues to improve. Please message via AskBot secure chat or page with any questions or concerns. Evan White DO Commercial Finance Analyst Division of Infectious Disease Transplant Infectious Disease [...] tablet Oral Once per day on Thu Wed Thu Tacrolimus 0.5 mg Oral Daily Tamsulosin [...] to follow. Please Epic message or page [phone] with questions. Evan White DO Transplant Infectious Diseases Images from the original note were not included. Pulmonary/Critical Care Medicine Daily Progress Note Reason for Consultation: bronch for infectious workup Requesting Physician: Dr. Prince CURRENT HOSPITALIZATION: Admit Date: 08/28/2023 [facility] Hospital LOS: 9 days Impression 1. [...] and interpreted reviewed the radiographic data in IHIS/Content Syndicate: Words on Demande/Helpawhere. Internal Medicine Daily Progress Note Patient: George Styles, 1970, [id number] Physician: Evan Kelly MD, PGY-1, TM1 service [...] s/p combined Liver-kidney transplant on 04/13/20. 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 - continue home aspirin [...] 5.05 (H) 11/19/2018 Kevin Prince MD, SERA Commercial Finance Analyst of Clinical Medicine [facility] Images from the original note were not included. Pulmonary/Critical Care Medicine Daily Progress Note Reason for Consultation: bronch for infectious workup Requesting Physician: Dr. Prince CURRENT HOSPITALIZATION: Admit Date: 08/28/2023 [facility] Hospital LOS: 8 days Impression [...] and interpreted reviewed the radiographic data in AskBot/Stylehive/Ludesi. Acute Occupational Therapy Evaluation Prior to Admission [...] Assessment: Transfer Assessment: Sit to Stand Transfer [place] Level: Sit->Stand: independent Skilled Intervention/Details: Sit->Stand: x1 from EOB, x1 from toilet Stand to Sit Transfer [place] Level: Stand->Sit: independent Skilled Intervention/Details: Stand->Sit: x1 to toilet, x1 to EOB Functional Mobility: Functional Mobility [place] Level: Functional Mobility/Gait: independent Ambulation Distance (Feet): 20 Skilled Intervention/Details - Functional Mobility/Gait: pt performed functional mobility to/from RR w/ no overt LOB Outcome Score(s): CURRENT [facility] Daily Activity Inpatient Short Form Putting on/Taking Off Lower Body Clothin - A Little Assistance Bathin - A Little Assistance Toiletin - A Little Assistance Putting on/Taking Off Upper Body Clothin - No Assistance Groomin - No Assistance Eatin - No Assistance CURRENT [facility] Activity Raw Score: 21 CURRENT [facility] Activity Functional Limitation/Modifier: 32.79% Currently [...] Acute Physical Therapy Evaluation Prior to Admission AMPAC score(s): PRIOR LEVEL AM-PAC Mobility Raw Score: [...] Intact Mobility Assessment: Supine to Sit Mobility [place] Level: Supine->Sit: [facility] Bed Features/Set-up: Supine->Sit: Head of bed elevated Sit to Supine Mobility [place] Level: Sit->Supine: not tested Balance: Sitting Balance [...] environment. Transfer Assessment: Sit to Stand Transfer [place] Level: Sit->Stand: independent Skilled Intervention/Details: Sit->Stand: From EOB x 2 without difficulty. Stand to Sit Transfer [place] Level: Stand->Sit: independent Assistive Device: Stand->Sit: armed chair Skilled Rationale: Verbal cues, Positioning Gait/Functional Mobility: Gait Assessment [place] Level: Gait: stand-by assist Assistive Device: Gait: rollator Ambulation Distance (Feet): 400 Gait Deviations Identified: decreased grace, decreased gait speed Gait Skilled Rationale: verbal, upright posture, increase step length, increase foot clearance Skilled Intervention/Details - Gait: Reasonable foot clearnce without loss of balance but endorsing dyspnea as 6-7/10. Stairs: Stairs Assessment [place] Level: Stair Negotiation: not tested Outcome Score(s): CURRENT [facility] Basic Mobility Inpatient Short Form [...] a railin - A Little Assistance CURRENT [facility] Mobility Raw Score: 21 CURRENT [facility] Mobility Functional Limitation/Modifier: 28.97% Currently [...] Daily Progress Note Patient: George Styles, 1970, [id number] Physician: Evan Kelly MD, PGY-1, TM1 service Subjective/Interval History: No acute events overnight. Patient saturating appropriately on 4L NC. He denies shortness of breath, chest pain, headaches, abdominal pain. No increased leg swelling. He has been utilizing his bedside incentive spirometry. All questions answered by the team. 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 - continue home aspirin [...] 5.05 (H) 11/19/2018 Kevin Prince MD, SERA Commercial Finance Analyst of Clinical Medicine [facility] Transplant Infectious [...] to follow. Please Epic message or page [phone] with questions. Evan White DO Transplant Infectious Diseases Images from the original note were not included. 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 - continue [...] P 450 system Kevin Prince MD, SERA Commercial Finance Analyst of Clinical Medicine [facility] ERT Note: [...] MD, PhD Internal Medicine and Pediatrics PGY-3 [facility] Brief plan of care update: [...] - Consider saline neb - NRB-> HHF-> ELLEN Serrano MD, PhD Internal Medicine and Pediatrics PGY-3 [facility] Transplant Infectious Disease (Team 3) [...] appendix 6. No abdominopelvic ascites. Assessment: George Sytles is a 53yo M with EtOH cirrhosis [...] to follow. Please Epic message or page [phone] with questions. 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 - continue home aspirin [...] 5.05 (H) 11/19/2018 Kevin Prince MD, FASN Commercial Finance Analyst of Clinical Medicine [facility] Progression of [...] Lora Colón RN, MSN, CCM, CMCN Clinical Pancake Professional- [facility] Transplant #[phone] Made introductory visit with patient. Provided emotional and spiritual support. Patient shared about: - Source of Rosemary: Camping/Fishing/Family - Spirituality/Congregation Affiliation: raised Latter-Day - Family Support/history - Experience with illness/hospital course - Hopes for healing/future Black And White Printer Operator provided: - Supportive presence - Active listening - Validation of feelings/emotions - Pledged prayer Patient encouraged to request a quality control head as needed. Chaplains are available in-house 24 hours a day and 7 days a week. For urgent matters in [facility], please page [phone]. If the request is not urgent, please enter a consult. Consults are responded to within 24 hours. Senior Staff Black And White Printer Operatordakota Singh Mdiv, [facility] [place] [phone] [email or web address] 22/06 On-call [place]: [phone] 22/06 Pager ,BS, and Brock Maciel Pager [phone] 09/02/23 1116 Clinical Encounter Type Visited With Patient Visit Type Introduction Pastoral Time Spent 15 min Referral Other (See Comment) (rounding) Spiritual Assessment Spiritual Observation Spirituality helpful Emotional Observation Coping well Hope Observation Specific hope focus Support Observation By Family Interventions Provided Active listening;Supportive presence Facilitated Verbalization of feelings Explored Expectations Registered Pharmacy Technician Education Registered Pharmacy Technician Service Available Yes Educated Patient Outcomes Patient Outcomes Reduced distress Plan of Care Continue Visiting PRN NUTRITION RISK SCREENING NOTE Nutrition Plan of Care: 1. Continue current diet order. 2. No oral supplements warranted at this time. 3. Monitor for significant weight changes. Monitor GI and skin integrity. 4. Monitor and encourage po intakes with goal of average po being 100%. 5. emergency technician to follow. George Styles is a 53 y.o. 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 His post-transplant course was noteworthy for nephrostomy tube (05/17/2022-09/10/2022) due to concern for ureteral stone. He presents as a direct admission for fever, cough, for infectious workup. Pt unavailable and information obtained via chart review Lock Corner Machine Operator Screening Pt's appetite is good. [...] with meds Food Allergies reviewed:Shellfish Cultural or Congregation Restrictions/Preferences: None GI: Last Bowel Movement: 09/01/23 [...] Will continue to monitor. Cecilia Mattson DTR Pager:[phone] Internal Medicine Daily Progress Note Patient: George Styles, 1970, [id number] Physician: Evan Kelly MD, PGY-1, TM1 service [...] s/p combined Liver-kidney transplant on 04/13/20. 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 - continue home aspirin [...] as outlined above. Kevin Prince MD Pager [phone] Summary: Pharmacy Med Rec Department of Pharmacy [...] Supply: 90 Refills: 0 Provider: Zuly Bruno LEAD BUSINESS SYSTEMS ANALYST Pharmacy: [facility] Other Comments: Patient reported his Last Home Dose of mycophenolate & tacrolimus was on 08/28/23 at 0900. Patient reported he was taking Bactrim and benzonatate for fevers and a cough he was having. Please feel free to contact me with any further questions. Name: Heidy Chatman Phone #: [phone] Date/Time: 09/01/2023 2:01 PM Time Spent: 15 minutes Associated attestation - Matt Kramer RPh,PharmJenna - 09/01/2023 2:28 PM EDT Department of Pharmacy Admission Medication Reconciliation Note Patient: George Styles Room/Bed: 1062/A I have reviewed the home medication list with the Driller Multiple Spindle. All changes to the home medication list have been updated in IHIS. Updated ELEMENTARY EDUCATOR Med List: Prior to Admission Medications Prescriptions [...] with any further questions. Name: Matt Kramer RPh,Frankie Phone #: [phone] Date/Time: 09/01/2023 2:28 PM Transplant Infectious Disease [...] crypto antigen, EBV PCR -follow pending histo, [id number] labs These recommendations were discussed with the primary team. Transplant ID (Team 3) will continue to follow. Please Epic message or page [phone] with questions. 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 - continue home aspirin [...] 5.05 (H) 11/19/2018 Kevin Prince MD, SERA Commercial Finance Analyst of Clinical Medicine [facility] Discharge Planning [...] Siblings: Yes Name and Contact information: Gian Jensen ([phone]) Reviewed and Updated in Demographics? : Yes [...] patient on Anticoagulation? : No [id number] [place] [address] - [address] [address] Overcoiler Does the patient or sales representative public utilities express financial concerns? : No Employed?: Disabled Coping/Stress Concerns about patient s coping and stress?: No Concerns about patient s caregiver s coping and stress?: No Values and Beliefs Cultural or druze practices that may impact discharge planning and/or [...] Plan 1. Identified self and role as Pancake Professional. 2. Confirmed and updated demographics and treatment team. 3. Pancake Professional will continue to follow with medical team/pt for any other additional discharge needs. Kasandra DON RN *Please note I am float CM and work Thursday and Thursday every other week. Please call [phone] for assist in my absence. Internal Medicine Daily Progress Note Patient: George Styles, 1970, [id number] Physician: Evan Kelly MD, PGY-1, TM1 service [...] s/p combined Liver-kidney transplant on 04/13/20. 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 - continue home aspirin [...] 5.05 (H) 11/19/2018 Kevin Prince MD, SERA Commercial Finance Analyst of Clinical Medicine [facility] Internal Medicine Daily Progress Note Patient: George Styles, 1970, [id number] Physician: Laurel Serrano MD, PhD, PGY-3, TM1 [...] s/p combined Liver-kidney transplant on 04/13/20. 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 - continue home aspirin 81mg daily, atorvastatin 20mg daily Gout: continue home allopurinol 200mg daily BPH: continue home flomax 0.4mg daily DVT PPX: SQH Code Status: Full Code Disposition: Pending clinical course. Anticipate eventual discharge home. Discussed with team and attending, Kevin Prince MD, on rounds. Signed, Laurel Serrano MD, PhD documented in this encounter [facility] 09-10-2023 Hospital Discharge instructions Laurel Serrano [...] doctor. You will need to pick up attendant the oxygen concentrator when you leave the [...] on healthy foods. documented [facility] Consult note Associated Order (s): IP CONSULT TO PULMONOLOGY Pulmonary Medicine Inpatient Consultation Reason for Consultation: bronch for infectious workup Requesting Physician: Dr. Prince Pulmonary Attending Physician: Dr. Diaz CURRENT HOSPITALIZATION: Admit Date: 08/28/2023 [facility] Hospital LOS: 4 days Impression/Recommendations: [...] Recommendations: - Plan to bronch tomorrow morning. NPO@NC, order placed - would repeat HIV, last [...] short period of time. 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 Other histories as documented in the [...] had any ill contacts. He traveled to [place] to family reunion in May. REVIEW OF [...] GUIDANCE 05/17/2022 Surgeon: Enzo Heart DO; Location: [facility] INTERVENTIONAL RADIOLOGY (VIR) LIVER TRANSPLANT, ORTHOTOPIC N/A 04/12/2020 Laterality: N/A; Surgeon: LU Palma; Location: [facility] SAME DAY SURGERY MAIN OR KIDNEY TRANSPLANT W/O GALENA NEPHRECTOMY N/A 04/12/2020 Laterality: N/A; Surgeon: LU Palma; Location: [facility] SAME DAY SURGERY MAIN OR [...] Alamo MD I can be reached via AskBot secure message (preferred) or Pager #[phone] documented in this encounter [facility] 08-28-2023 History and physical note Images from the original note were not included. Internal Medicine Admission History & Physical Patient: George Styles, 1970, [id number] Physician: Aric Turner MD, PGY1, Pager #[phone], TM service Date of face to face patient [...] So he went to see the transplant lead pony rider. He was found elevated Cr and asked [...] Appetite is ok now. Urine is about 5491-9849 ml every day. Stool every day, no [...] GUIDANCE 05/17/2022 Surgeon: Enzo Heart DO; Location: [facility] INTERVENTIONAL RADIOLOGY (VIR) LIVER TRANSPLANT, ORTHOTOPIC N/A 04/12/2020 Laterality: N/A; Surgeon: LU Palma; Location: [facility] SAME DAY SURGERY MAIN OR KIDNEY TRANSPLANT W/O GALENA NEPHRECTOMY N/A 04/12/2020 Laterality: N/A; Surgeon: LU Palma; Location: [facility] SAME DAY SURGERY MAIN OR [...] s/p combined Liver-kidney transplant on 04/13/20. 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 - continue aspirin 81mg [...] Pierson, Luisa Steven, Renee Rivera, Daisha Max Auto Body Man: José Miguel Garnica All Txt: 04/13/2020 (Kidney), [...] results found for: CYCLOSPORIN , CYCLOSPORIN2 , [id number] , CYCLORAND No results found for: SIROLIMUS [...] Rest as above. Kevin Prince MD Pager [phone] documented in this encounter [facility] 08-28-2023 History of Present illness Narrative Images from the original note were not included. 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 Auto Body Man: Anayeli Burt Date of Liver Transplant: 04/13/2020 (Kidney), 04/13/2020 (Liver) 3 years 4 months post Liver/Kidney Transplant Primary Disease: Hypertensive Nephrosclerosis Transplant Issuing Operator: Erma Roe/ Daisha Max Primary Care [...] and faMOTIdine === None Specified Preferred Lab: [facility] Change in lab frequency / new [...] every 12 hours. ADDITIONAL INFORMATION: None Specified, [id number] [place] [address] - [address] [facility] [address] [facility] [address] [facility] [address] [place] [facility] [address] [id number] [place] [address] [address] [facility] [address] [facility] [address] [facility], [address] [facility] [address] ROS and SCREEN: Chest Pain: negative Cough: [...] PHYSICIAN: I saw George Styles at the [facility] on 08/28/2023. Patient is a 53 y.o. 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 Steve Latham MD housing manager Division of Nephrology [facility] documented in this encounter [facility] 08-28-2023 Instructions Maionr Busby RN - 08/28/2023 2:15 PM EDT - Admission for fevers, cough, and night sweats documented in this encounter [facility] 08-19-2023 History of Present illness Narrative [facility] OUTREACH ADVANCED: Call Information: Date and Time of Contact: 08/19/2023 2:52 PM Method of Contact: By Phone Contact Type: Prescriptions Contactor: [facility] Contactee: Patient Shipping/Pickup: Medicare B Refill?: No Medication Name: Tacro 0.5mg Delivery Method: Air Delivery Location: Home Signature Required: No Mailing/Pickup Date: 08/25/2023 Shipping Address: [address] [place] [address] [address] Contact Info: Specialty (Yanci) [phone] Jakob [phone] [facility] [phone] David [phone] Bedside Delivery ([facility]) [phone] documented in this encounter [facility] 06-12-2023 History of Present illness Narrative Images from the original note were not included. George Styles is a 53 y.o. 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 No longer follows with a local lead pony rider. History of Present Illness: Since George was [...] and lab results. Rebeca Gutierrez MSN, RN, WATERMASTER-BC, CCTN Certified Nurse Practitioner Comprehensive Trans[facility] [address] [facility] [address] documented in this [facility] 06-12-2023 Instructions JEANNA Hess - 06/12/2023 3:00 PM EDT No change in immunosuppression. documented in this encounter [facility] 06-10-2023 History of Present illness Narrative [facility] OUTREACH ADVANCED: Call Information: Method of Contact: By Phone Contact Type: Prescriptions Contactor: [facility] Contactee: Patient Contact Outcome: Left message Shipping/Pickup: Medication Name: Mycophenolate sod 180 mg Contact Info: Specialty ([place]) [phone] [facility] [phone] [facility] [phone] David [phone] Bedside Delivery ([facility]) [phone] [facility] OUTREACH ADVANCED: Call Information: Date and Time of Contact: 06/12/2023 9:43 AM Method of Contact: By Phone Contact Type: Prescriptions Contactor: [facility] Contactee: Patient Contact Outcome: Left message and Follow-up Shipping/Pickup: Medicare B Refill?: No Medication Name: Myco 180 Contact Info: Specialty (Yanci) [phone] [facility] [phone] [facility] [phone] David [phone] Bedside Delivery ([facility]) [phone] [facility] RX OUTREACH ADVANCED: Call Information: Date and Time of Contact: 06/12/2023 10:08 AM Method of Contact: By Phone Contact Type: Prescriptions Contactor: [facility] Contactee: Patient Shipping/Pickup: Medicare B Refill?: No Medication Name: Mycophenolate 180mg DR Delivery Method: Air Delivery Location: Home Signature Required: No Mailing/Pickup Date: 06/17/2023 Shipping Address: [address] [place] [address] Contact Info: Specialty ([place]) [phone] Jakob [phone] [facility] [phone] David [phone] Bedside Delivery ([facility]) [phone] documented in this encounter [facility] 04-13-2023 Note [facility] Subjective George Styles is a [...] on (more content not included)... [facility] 03-12-2023 History of Present illness Narrative [facility] RX OUTREACH ADVANCED: Call Information: Date and Time of Contact: 03/12/2023 10:34 AM Method of Contact: By Phone Contact Type: Prescriptions Contactor: [facility] Contactee: Patient Shipping/Pickup: Medicare B Refill?: No Medication Name: Mycophenoloate sod 360 mg prednisone 5mg Delivery Method: Air Delivery Location: Home Signature Required: No Mailing/Pickup Date: 03/16/2023 Shipping Address: [address] [facility] [address] Contact Info: Specialty ([place]) [phone] Jakob [phone] [facility] [phone] David [phone] Bedside Delivery ([facility]) [phone] [facility] RX OUTREACH ADVANCED: Call Information: [...] Required: No Mailing/Pickup Date: 03/19/2023 Shipping Address: [address] [place] [address] [address] Contact Info: Specialty ([place]) [phone] [facility] [phone] [facility] [phone] David [phone] Bedside Delivery ([facility]) [phone] documented in this encounter [facility] 03-10-2023 History of Present illness Narrative [facility] OUTREACH ADVANCED: Call Information: Date and Time of Contact: 03/10/2023 12:00 PM Method of Contact: By Phone Contact Type: Prescriptions Contactor: [facility] Contactee: Patient Contact Outcome: Left message and Call back later Shipping/Pickup: Medication Name: Mycophenolate ; Tacrolimus Contact Info: Specialty (Yanci) [phone] [facility] [phone] [facility] [phone] David [phone] Bedside Delivery ([facility]) [phone] documented in this encounter [facility] 03-10-2023 History of Present illness Narrative [facility] OUTREACH ADVANCED: Call Information: Date and Time of Contact: 03/10/2023 12:00 PM Method of Contact: By Phone Contact Type: Prescriptions Contactor: [facility] Contactee: Patient Contact Outcome: Left message and Call back later Shipping/Pickup: Medication Name: Mycophenolate ; Tacrolimus Contact Info: Specialty ([place]) [phone] [facility] [phone] [facility] [phone] David [phone] Bedside Delivery ([facility]) [phone] [facility] RX OUTREACH ADVANCED: Call Information: Date and Time of Contact: 03/12/2023 10:32 AM Method of Contact: By Phone Contact Type: Prescriptions Contactor: [facility] Contactee: Patient Contact Outcome: Left message Shipping/Pickup: Medication Name: Mycophenolate sodium (MYFORTIC) 180 MG Tab tacrolimus 0.5 mg Contact Info: Specialty ([place]) [phone] [facility] [phone] [facility] [phone] David [phone] Bedside Delivery ([facility]) [phone] documented in this encounter [facility] 01-16-2023 History of Present illness Narrative -Referring Provider for today's consult: Daisha Max DO -Primary Care Provider: Zuly Bruno History of Present Illness George Styles is a 52 y.o. male who presents to the [facility] today for follow-up [...] 04/12/2020 Laterality: N/A; Surgeon: LU Palma; Location: [facility] SAME DAY SURGERY MAIN OR KIDNEY TRANSPLANT W/O GALENA NEPHRECTOMY N/A 04/12/2020 Laterality: N/A; Surgeon: LU Palma; Location: [facility] SAME DAY SURGERY MAIN OR [...] 0.3 12/29/2022 Explant Pathology Pathologic Diagnosis A. [place] liver, orthotopic liver transplant resection (1458 gram): [...] A/P with IV contrast (06/27/2022): 1. 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 Daisha Max DO Commercial Finance Analyst Gastroenterology, Hepatology and Nutrition [facility] Pager: [phone] Images from the original note were not included. 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 ADDITIONAL INFORMATION: None Specified [id number] [place] [address] - [address] [place] [address] [facility] [address], [address] [facility] [address] [id number] [place] [address] [address] [facility] [address] 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 Nephrostomy tube placed 05/17/22 [...] and no hydronephrosis. Some reflux up the kake right ureter but good drainage of both transplant and kake ureter to the bladder. Nephrostomy tube was [...] transplant, orthotopic (N/A, 04/12/2020); kidney transplant w/o kake nephrectomy (N/A, 04/12/2020); and placement nephrostomy catheter [...] Negative for , diarrhea, constipation Genitourinary: See PILOT STATION Neurological: Negative for headaches. Lymph/Heme: Negative for [...] x 4, Normal strength. No edema. Skin: Barney, warm, and dry. There are no rashes [...] and no hydronephrosis. Some reflux up the kake right ureter but good drainage of both transplant and kake ureter to the bladder. Nephrostomy tube was [...] MD 09/10/22 documented in this encounter [facility] 07-07-2022 History of Present illness Narrative [...] assisted off the table and escorted to veterinary receptionist where they made a follow up. [...] to have transplant ureter with anastomosis to kake right ureter. Nephrostogram without filling defects and no hydronephrosis. Some reflux up the kake right ureter but good drainage of both transplant and kake ureter to the bladder. Nephrostomy tube was removed without issue. Patient does have some sensation of incomplete bladder emptying and occasional sensation in his right flank. PVR today was 33cc. Will re-evaluate urinary symptoms at next appointment. --continue Flomax --RTC in one month flow flow/PVR/IPSS Patient to call with any additional questions or concerns. Ryan Yepez MD 07/07/22 documented in this encounter [facility] 06-27-2022 History of Present illness Narrative [...] transplant, orthotopic (N/A, 04/12/2020); kidney transplant w/o kake nephrectomy (N/A, 04/12/2020); and placement nephrostomy catheter [...] Negative for , diarrhea, constipation Genitourinary: See PILOT STATION Neurological: Negative for headaches. Lymph/Heme: Negative for [...] x 4, Normal strength. No edema. Skin: Barney, warm, and dry. There are no rashes [...] male with a DDRT to the [facility] in 2019. Nephrostomy tube placed 05/17 [...] needed. documented in this encounter [facility] 06-27-2022 History and physical note Patient was evaluated in clinic as a nurse visit. Please refer to Rena Brewster's note. [facility] Work Phone: 06-27-2022 History and physical note Patient was evaluated in clinic as a nurse visit. Please refer to Rena Brewster's note. documented in this encounter [facility] 06-27-2022 History of Present illness Narrative TEACHING REGARDING TX NEPH COMPLETED-NEPH TUBE SITE DRY AND INTACT-CLEAR YELLOW URINE IN THE BAG-INSTRUCTED ABOUT FLUSHING, BAG CHANGING ETC. NUMEROUS QUESTIONS ASKED AND ANSWERED-VERBALIZED UNDERSTANDING documented in this encounter [facility] 06-18-2022 Note EXAMINATION: CT ABD/ PELVIS [...] mass or enlargement. KIDNEYS: Marked atrophy of kake kidneys. Transplant right pelvic kidney with percutaneous [...] by: MÓNICA JIMENEZ Date: 2022-06-18 13:53 [facility] 06-12-2022 Instructions Anayeli Christianson RN - 06/12/2022 3:21 PM EDT Do not take apart/disrupt nephrostomy tube system. Call Interventional Radiology and/or on-call transplant nurse [phone] for instruction if need to flush (clot or decreased flow). Take cipro 500mg, one tablet, twice per day for 14 days documented in this encounter [facility] 06-12-2022 History of Present illness Narrative Images from the original note were not included. 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 Auto Body Man: Anayeli Burt Date of Liver Transplant: 04/13/2020 (Kidney), 04/13/2020 (Liver) 2 year, 1 months post Liver/Kidney Transplant Primary Disease: Hypertensive Nephrosclerosis Transplant Issuing Operator: Steve Latham Primary Care physician: Zuly [...] Non-obstructing kidney stone in renal graft at [facility]. Percutaneous Neph Tube placed Images from the original note were not included. Nursing Assessment In Clinic (see Clinic Prep Sheet for additional information) Patient is accompanied to clinic today by: self Did patient require a wheelchair or medical transport for appointment: no Did front end software developer confirm current address and insurance information [...] hours. PREFERRED LAB AND PHARMACY: None Specified [address] [address] - [address] [address] [facility] [address] [place] [facility] [address] [id number] [place] [address] [address] [facility] [address] [facility] [address] [facility] [address], [address] [facility] [address] ROS and SCREEN: Chest Pain: negative Cough: negative SOB: negative Abd Pain: negative Nausea: positive Vomiting: negative Diarrhea: negative Constipation: negative Dysuria: positive Edema: negative Tremors: negative Headaches: negative Wound issues: negative Pt has neph tube w clear yellow urine. States he had a small clot that he dislodged QUESTIONS OR CONCERNS TO ADDRESS WITH PHYSICIAN: I saw George Feliz Jensen at the [facility] on 06/12/2022. Patient is a 52 y.o. 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 Steve Latham MD housing manager Division of Nephrology [facility] documented in this encounter [facility] 06-04-2022 TATI [place] - 06/04/2022 11:04 AM EDT Thank you for joining us for your neph tube follow up. We recommend routine exchange every 8-10 weeks. Please reach out at [phone] when it is time to set your next routine exchange. Thank you IR clinic documented in this encounter [facility] 06-04-2022 History of Present illness Narrative [...] understanding. documented in this encounter [facility] 05-20-2022 Note Formatting of this n [...] his discharge. Leon Cook RN [facility] 05-20-2022 Miscellaneous Notes Patient discharged. AVS [...] discharge/transition of care. Outcome: Adequate for Discharge Paged Vera Dillard MD R10 [address]m [address] Jensen George Please let's have a clear order on how the nephrostomy site dressing need to be changed when the patient goes home so we provide teaching before his discharge Leon RN #[id number] Leon Cook RN Afternoon assessment completed at [...] Interdisciplinary Rounds/Family Conf Outcome: Ongoing Discussed with [facility] re: possible urine culture performed at [...] with questions. Evan Byrd MD Urology, PGY-2 #[id number] I certify that this patient requires inpatient [...] Practice Guideline (CPG) Outcome: Ongoing Flowsheets (Taken 05/16/2022 0442) Related Risk Factors (Acute Pain): patient perception [...] care explained choices provided On admission to [facility], a dual RN initial assessment of skin condition was performed by Kallie Lorenzana RN and Sheri Arguelles RN. Skin Assessment: WDL Jose Score: 20 LDA Added:N Kallie Lorenzana RN documented in this encounter [facility] 05-20-2022 Note Formatting of this n [...] care. Outcome: Adequate for Discharge [facility] 05-20-2022 Note Formatting of this n ote might be different from the original. Tung Dillard MD R10 [address]m 1006 Jensen George Please let's have a clear order on how the nephrostomy site dressing need to be changed when the patient goes home so we provide teaching before his discharge Leon RN #[id number] Leon Cook, RN [facility] 05-20-2022 History of Present illness Narrative Images from the original note were not included. [facility] Note: [facility] the following [facility] prescription(s): Medication reconciliation was completed with comparison to discharge reconciliation report. The prescription(s) will be delivered to the patient's bedside on 05/20/22. Total cost is $0. Yanira Her RPh,PharmD Specialty ([place]) [phone] [facility] [phone] [facility] [phone] David [phone] [place] [phone] Bedside Delivery ([facility]) [phone] Attending I saw George Styles at the [facility] on 05/19/2022. I saw and independently [...] mg 650 mg Oral Q6H PRN Evan Bnenett MD 650 mg at 05/18/22 1739 allopurinol [...] tablet 20 mg 20 mg Oral QHS vEan Bennett MD 20 mg at 05/18/221999 benzocaine-menthol [...] 0804 iodixanol (VISIPAQUE) injection 320 mg/mL for [facility] [...] Daily Progress Note Patient: George Styles, 1970, [id number] Physician: Liam Julian MD, PGY-3, Pager #[phone], [id number] Subjective/Interval History: No acute events overnight. Passed [...] (05/19 421) Na/K+/Phos/Mg/Ca: 141/3.9/2.7/1.7/8.6 (05/19 421) Bun/Creat/Cl/CO2/Glucose: 21/.46/106/24/103 (05/19 421) Assessment/Plan: George Styles is a [...] Saldana MD Division of Hospital Medicine Pager [phone] Attending I saw George Styles at the [facility] on 05/18/2022. I saw and independently [...] Daily Evan Bennett MD 5 mg at 05/17/2247 aspirin chewable tablet 81 mg 81 mg [...] packet 17 g 17 g Oral Q12H Nsihant Gamez MD 17 g at 05/17/222037 senna [...] Daily Progress Note Patient: George Styles, 1970, [id number] Physician: Nishant Gamez MD, PGY2, Pager #[phone], MM6service Subjective/Interval History: Nephrostomy tube placed yesterday with a lot of urine output and significant improvement in creatinine. 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 Daya (Nunu) Jeff Saldana MD Division of Hospital Medicine Pager [phone] Internal Medicine Daily Progress Note Patient: George Styles, 1970, [id number] Physician: Nishant Gamez MD, PGY2, Pager #[phone], [id number] Subjective/Interval History: Worsening creatinine this morning with [...] MD (Peggy) Division of Hospital Medicine Pager [phone] Attending I saw George Styles at the [facility] on 05/17/2022. I saw and independently [...] PRN Nishant Gamez MD 5 mg at 05/16/221542 polyethylene glycol (MIRALAX) packet 17 g 17 [...] of chart and discussion with treatment team, [employer] has not identified needs at this time. [...] follow. Introduced self and role of the quality control head to patient. Provided emotional and spiritual support and the patient responded by sharing their experience and discussed the following: - Spirituality/Congregation Affiliation: As a kid attended [employer] christian but not a strong identity now - Family support - pt's brothers live close by Black And White Printer Operator provided: - Supportive presence - Active listening - Validation of feelings/emotions Patient encouraged to request a quality control head as needed. Chaplains are available in-house 24 hours a day and 7 days a week. For urgent matters in [facility], please page [phone]. If the request is not urgent, please enter a consult. Consults are responded to within 24 hours. Angie Singh Mdiv, [facility] Trans[facility] [place] [phone] Black And White Printer Operator [facility] Black And White Printer Operator [place] [phone] [email or web address] 22/06 [facility] Pager [phone] 22/06 Pager ,BS, and Brock 1500 22/06 David Pager [phone] 05/16/22 1129 Clinical Encounter Type Visited With Patient Visit Type Introduction Pastoral Time Spent 15 min Referral Other (See Comment) (Rounding) Spiritual Assessment Spiritual Observation Spirituality helpful;Identifies as (see comment) (Jainism) Emotional Observation Coping well Hope Observation Hopeful and accepting Support Observation By Family Interventions Provided Active listening;Supportive presence Facilitated Verbalization of feelings;Sharing of life story;Identifying support system Explored Expectations Registered Pharmacy Technician Education Registered Pharmacy Technician Service Available Yes Educated Patient Outcomes Patient Outcomes Articulated purpose/meaning Plan of Care Continue Visiting PRN Internal Medicine Daily Progress Note Patient: George Styles, 1970, [id number] Physician: Nishant Gamez MD, PGY2, Pager #[phone], [id number] Subjective/Interval History: Overall feeling okay this morning. 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 [...] Supervision Transfer Assessment: Sit to Stand Transfer [place] Level: Sit->Stand: independent Skilled Intervention/Details: Sit->Stand: x1 from EOB Stand to Sit Transfer [place] Level: Stand->Sit: supervision Assistive Device: Stand->Sit: armed chair Skilled Rationale: Controlled descent for sitting, Verbal cues Gait/Functional Mobility: Gait Assessment [place] Level: Gait: supervision Assistive Device: Gait: gait belt Gait Distance (feet): 200 Gait Deviations Identified: decreased grace, decreased step length, decreased stride length Gait Skilled Rationale: verbal, upright posture Skilled Intervention/Details - Gait: Pt with steady gait without LOB or complaints of SOB. Stairs: Stairs Assessment [place] Level: Stair Negotiation: stand-by assist Assistive Device: Stair Negotiation: gait belt, left rail (ascending) Number of stairs: 9 Stairs Skilled Rationale: reciprocal pattern Outcome Score(s): CURRENT [facility] Basic Mobility Inpatient Short Form Turning over in bed: 4 - No Assistance Sitting/standing from chair: 4 - No Assistance Moving from lying on back to sittin - No Assistance Moving to and from bed to chair: 4 - No Assistance Walk in hospital room: 3 - A Little Assistance Climbing 3-5 steps with a railin - A Little Assistance CURRENT [facility] Mobility Raw Score: 22 CURRENT [facility] Mobility Functional Limitation/Modifier: 20.91% Currently [...] reported no concerns with discharging home with kendleton support. 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 [...] Assessment: Transfer Assessment: Sit to Stand Transfer [place] Level: Sit->Stand: independent Skilled Rationale: Cues for increased safety Skilled Intervention/Details: Sit->Stand: x1 EOB Stand to Sit Transfer [place] Level: Stand->Sit: supervision Assistive Device: Stand->Sit: gait belt, armed chair Skilled Rationale: Verbal cues, Controlled descent for sitting, Cues for increased safety Skilled Intervention/Details: Stand->Sit: cues for hand placement and controlled descent Functional Mobility: Functional Mobility [place] Level: Functional Mobility/Gait: stand-by assist Assistive Device: Functional Mobility/Gait: gait belt Functional Mobility Distance: Distance needed for limited community mobility Functional Mobility Deficits: Activity tolerance, Balance, Decreased step length, Generalized weakness Functional Mobility Skilled Rationale: Verbal cues, Facilitate postural control Skilled Intervention/Details - Functional Mobility/Gait: cues for upright posture Outcome Score(s): CURRENT [facility] Daily Activity Inpatient Short Form Putting on/Taking Off Lower Body Clothin - A Little Assistance Bathin - A Little Assistance Toiletin - A Little Assistance Putting on/Taking Off Upper Body Clothin - No Assistance Groomin - No Assistance Eatin - No Assistance CURRENT [facility] Activity Raw Score: 21 CURRENT [facility] Activity Functional Limitation/Modifier: 32.79% Currently [...] 04/12/2020 Laterality: N/A; Surgeon: LU Palma; Location: [facility] SAME DAY SURGERY MAIN OR KIDNEY TRANSPLANT W/O GALENA NEPHRECTOMY N/A 04/12/2020 Laterality: N/A; Surgeon: LU Palma; Location: [facility] SAME DAY SURGERY MAIN OR [...] discipline's goals. I was assisted by Mel Nomran for today's session. and I used facemask, [...] by: Mel Norman OT, OTR/L License #: [id number] pager # [phone] 05/20/2022 Upon discontinuation of Acute Care Occupational Therapy Services or patient discharge from the hospital this note represents the current Occupational Therapy Discharge Summary. documented in this encounter [facility] 05-20-2022 Hospital course Narrative Discharge Summary [...] during his recent hospital stay at [facility]. As you may know, George Styles, [...] Saldana MD Division of Hospital Medicine p: [phone] f: [phone] CONSULTS DURING ADMISSION: IP CONSULT TO SURGERY - UROLOGY IP CONSULT TO NEPHROLOGY - TRANSPLANT (MEDICINE) IP CONSULT TO INTERVENTIONAL RADIOLOGY IP CONSULT TO PHYSICAL THERAPY IP CONSULT TO OCCUPATIONAL THERAPY IP CONSULT TO PHARMACY BEDSIDE DISCHARGE MED DELIVERY IMAGING / PROCEDURES / RESULTS: Should you require further information or copies of results or reports please contact [employer] @ [phone] LABS AT TIME OF DISCHARGE: Lab Results [...] 08/16/2021 PATIENT'S MEDICAL HOME AT DISCHARGE: Zuly Kiana [address] [facility] / [place] [address] MEDICATIONS: Discharge Orders CT ABDOMEN/PELVIS WITHOUT CONTRAST [...] CAPS Generic drug: docusate Follow-up: Zuly Bruno, MEDICAL SUPPORT SPECIALIST [address] [facility] [address] Schedule an appointment as soon as possible for a visit Follow-up appointment with your, primary care physician within 7-10 days, after discharge. [address] [facility] [address] Follow up The department of urology will call you with a follow up appointment. LU Ovalle [address] 11[address] Floor [facility] [address] Follow up Please make a follow up appointment with Dr. Latham's office. Upcoming Appointments (up to five)-Some appointments for Medical Center outpatient clinics or diagnostic testing locations are not displayed below Provider Department Dept Phone 06/04/2022 10:40 AM LEWIS MACIEL [facility] Interventional Radiology Clinic [phone] 06/27/2022 1:30 PM MAURICE ROBBY [facility] Department of Radiology Arrive at: Arrive to First Floor Registration Desk [phone] 06/27/2022 2:40 PM Ryan Jyoti [facility] [place] Arrive at: Arrive to 2nd Floor, Registration [address] 10/31/2022 1:00 PM Steve Latham [facility] Transplant [facility] [phone] 01/16/2023 9:40 AM TRANSPLANT HEPATOLOGY 3, [facility] Transplant [facility] [phone] Associated attestation - Daya Saldana MD - [...] MD (Peggy) Division of Hospital Medicine Pager [phone] documented in this encounter [facility] 05-20-2022 Hospital Discharge instructions Giulia Cavazos [...] be changed by Interventional Radiology. Please call [phone] to schedule this appointment and with any questions or concerns you may have regarding the nephrostomy tube. If you have questions or concerns, please call Interventional Radiology at SOMEONE FROM INTERVENTIONAL RADIOLOGY WILL CALL YOU FOR A FOLLOW UP IN THE IR CLINIC Giulia Cavazos RN Nurse Coordinator Interventional Radiology Interventional Radiology Outpatient scheduling documented in this encounter [facility] 05-19-2022 Note Formatting of this n [...] Interdisciplinary Rounds/Family Conf Outcome: Ongoing [facility] 05-19-2022 Note Formatting of this n ote might be different from the original. Discussed with [facility] re: possible urine culture performed at their facility. However, based on urinalysis completed at that time, which was only notable for hematuria, culture was not performed and sample no longer feasible for culture. Liam Julian MD Internal Medicine/Pediatrics, PGY-3 [facility] 05-18-2022 Note Formatting of this n ote might be different from the original. 2003: IHIS message sent to Dr Justyn Wen, regarding patient passing a small kidney stone, about the size of pea. MD notified. Stone left in strainer in pt bathroom. 0500: IHIS message sent to Dr Justyn Wen, regarding pt BP 174/77. [facility] 05-18-2022 Note Formatting of this n [...] discharge/transition of care. Outcome: Ongoing [facility] 05-18-2022 Note Formatting of this n [...] NS should instead be used. [facility] Work Phone: 05-18-2022 Note Formatting of this n ote might be different from the original. IHIS chat sent to Dr Tray Quintana, regarding pt BP 190/86. Pt complaining of pain at site of neph tube. PRN pain medication given per order parameters. Pt denies any other symptoms at this time. notified and aware. [facility] 05-17-2022 Note Formatting of this n ote might be different from the original. At 0900, I rounded with Dr. Gamez and Dr. Saldana. At that time I checked Mr. Styles's vital signs. His pulse oximeter was low and he was tachypneic. Verbal order at bedside to put nasal cannula on starting at 2liters oxygen and to provide incentive spirometer. [facility] 05-17-2022 Note Formatting of this n ote might be different from the original. Interventional Radiology procedure completed with IR Attending Dr. Heart / Dr. Le of percutaneous right nephrostomy tube placement transplant kidney 10.2 Fr Griffin acosta Pt tolerated procedure with moderate sedation local numbing agent . Transported to inpatient after phase I recovery. Post procedure orders in place. [facility] 05-16-2022 Note Formatting of this n ote might be different from the original. At 1530, I text tung Gomez MD that patient has only had 25ml urine output in matias this afternoon. [facility] 05-16-2022 Note Formatting of this n [...] with questions. Evan Byrd MD Urology, PGY-2 #[id number] [facility] Work Phone: 05-16-2022 Note Formatting of this n ote might be different from the original. I certify that this patient requires inpatient services at this time. I anticipate the expected length of stay will include at least two midnights. Inpatient services are due to the following medical concerns Obstructive kidney stone. Plans for post hospitalization care will be discharge to home. [facility] 05-16-2022 Consult note Associated Order (s): IP CONSULT TO NEPHROLOGY - TRANSPLANT (MEDICINE) I saw George Styles at the [facility] on 05/16/2022. Reason for Consultation: kidney [...] he was given flomax and sent home. [place] better but noticed more pain and decreased [...] and recommendations. Maxi Pringle MD [facility] Work Phone: 05-16-2022 Consult note Associated Order (s): IP CONSULT TO NEPHROLOGY - TRANSPLANT (MEDICINE) I saw George Styles at the [facility] on 05/16/2022. Reason for Consultation: kidney [...] he was given flomax and sent home. [place] better but noticed more pain and decreased [...] states he went to his local ED [place] and he was put on Flomax and he did improve. Pt states last night he was unable to void with severe right sided abd pain. Pt states nausea and no vomiting or fevers. Pt states he went back to [place] ED at 0100 and they placed a [...] orthotopic (N/A, 04/12/2020); and kidney transplant w/o kake nephrectomy (N/A, 04/12/2020). 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 The kake kidneys are progressively atrophic bilaterally compared to [...] of 06/14/2020 are no longer present. The kake distal right ureter is decompressed beyond this [...] with surgical history for renal graft and kake right urinary drainage, as a discrete ureteroneocystostomy is not identified, and the graft may be draining via a ureteroureterostomy. Urology consultation recommended. 3. The kake kidneys are bilaterally atrophic, with right renal sinus calcifications consistent with nonobstructing right kake renal calculi up to 6 mm. Normal [...] PGY-3, Department of Urologic Surgery Pager #: [phone] Associated attestation - Ryan Yepez MD - [...] continue flomax documented in this encounter [facility] 05-16-2022 Note Formatting of this n [...] Practice Guideline (CPG) Outcome: Ongoing Flowsheets (Taken 05/16/2022 0442) Related Risk Factors (Acute Pain): patient perception [...] Relationship/Rapport: care explained choices provided [facility] 05-16-2022 Note Formatting of this n ote might be different from the original. On admission to [facility], a dual RN initial assessment of skin condition was performed by Kallie Lorenzana RN and Sheri Arguelles RN. Skin Assessment: WDL Jose Score: 20 LDA Added:N Kallie Lorenzana RN [facility] 05-15-2022 Emergency department Note Report given to Kallie RN at 10 [facility] 05-15-2022 Emergency department Note Report given [...] 04/12/2020 Laterality: N/A; Surgeon: LU Palma; Location: [facility] SAME DAY SURGERY MAIN OR KIDNEY TRANSPLANT W/O GALENA NEPHRECTOMY N/A 04/12/2020 Laterality: N/A; Surgeon: LU Palma; Location: [facility] SAME DAY SURGERY MAIN OR [...] Schneider MD Resident 05/15/222030 Pt arrives from [facility] with kidney stones. Pt states he had right lower abd pain and right flank pain with blood in his urine since Thursday. Pt states he went to his local ED [place] and he was put on Flomax and he did improve. Pt states last night he was unable to void with severe right sided abd pain. Pt states nausea and no vomiting or fevers. Pt states he went back to [place] ED at 0100 and they placed a matias and CT scan completed and multiple kidney stones noted. [facility] had liver and kidney transplant in 03/2020. documented in this encounter [facility] 05-15-2022 History and physical note Internal Medicine Admission History & Physical Patient: George Styles, 1970, [id number] Physician: Evan Bennett MD, PGY1, Pager #[phone], GM 4 service Date of face to [...] DAY SURGERY MAIN OR KIDNEY TRANSPLANT W/O GALENA NEPHRECTOMY N/A 04/12/2020 Laterality: N/A; Surgeon: LU [...] erythema: Skin: No jaundice or rash Neuro: radio tester 3-7, 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 Strength grossly [...] dilation of the calyces may represent narrowing/partial [id number] ofthe ureter and mild hydronephrosis or sequela [...] MD Division of Hospital Medicine [phone] [facility] Work Phone: 05-15-2022 History and physical note Internal Medicine Admission History & Physical Patient: George Styles, 1970, [id number] Physician: Evan Bennett MD, PGY1, Pager #[phone], GM 4 service Date of face to [...] 04/12/2020 Laterality: N/A; Surgeon: LU Palma; Location: [facility] SAME DAY SURGERY MAIN OR KIDNEY TRANSPLANT W/O GALENA NEPHRECTOMY N/A 04/12/2020 Laterality: N/A; Surgeon: LU Palma; Location: [facility] SAME DAY SURGERY MAIN OR [...] erythema: Skin: No jaundice or rash Neuro: radio tester 3-7, 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 Strength grossly [...] dilation of the calyces may represent narrowing/partial [id number] ofthe ureter and mild hydronephrosis or sequela [...] Medicine [id number] documented in this encounter [facility] 05-15-2022 Emergency department Note Bladder scan with Dr Villatoro at bedside, 14ml noted [facility] 05-15-2022 Consult note Associated Order (s): [...] states he went to his local ED [place] and he was put on Flomax and he did improve. Pt states last night he was unable to void with severe right sided abd pain. Pt states nausea and no vomiting or fevers. Pt states he went back to [place] ED at 0100 and they placed a [...] orthotopic (N/A, 04/12/2020); and kidney transplant w/o kake nephrectomy (N/A, 04/12/2020). 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 The kake kidneys are progressively atrophic bilaterally compared to [...] of 06/14/2020 are no longer present. The kake distal right ureter is decompressed beyond this [...] with surgical history for renal graft and kake right urinary drainage, as a discrete ureteroneocystostomy is not identified, and the graft may be draining via a ureteroureterostomy. Urology consultation recommended. 3. The kake kidneys are bilaterally atrophic, with right renal sinus calcifications consistent with nonobstructing right kake renal calculi up to 6 mm. Normal [...] PGY-3, Department of Urologic Surgery Pager #: [phone] Associated attestation - Ryan Yepez MD - [...] future before surgical intervention --may continue flomax [facility] Work Phone: 05-15-2022 Emergency department Note Advised Dr Schneider concerning no urine output via matias catheter. [facility] 05-15-2022 Physician Emergency department Note ED Attending George Feliz Jensen has a [...] care. Gian Villatoro MD 05/15/222003 [facility] Work Phone: 05-15-[address] Schneider made aware of only 30 ml urine via matias since arrival to room. [facility] 05-15-2022 Physician Emergency department Note dEPARTMENT [...] DAY SURGERY MAIN OR KIDNEY TRANSPLANT W/O GALENA NEPHRECTOMY N/A 04/12/2020 Laterality: N/A; Surgeon: LU [...] any incorrections. Matt Schneider MD Resident 05/15/222030 [facility] Work Phone: 05-15-2022 Emergency department Note Pt arrives from [facility] with kidney stones. Pt states he had right lower abd pain and right flank pain with blood in his urine since Thursday. Pt states he went to his local ED [place] and he was put on Flomax and he did improve. Pt states last night he was unable to void with severe right sided abd pain. Pt states nausea and no vomiting or fevers. Pt states he went back to [place] ED at 0100 and they placed a matias and CT scan completed and multiple kidney stones noted. [facility] and kidney transplant in 03/2020. [facility] 03-14-2022 History of Present illness Narrative [...] No Mailing/Pickup Date: 03/17/2022 Shipping Address: [address] [place] [address] Contact Info: Specialty ([place]) [phone] Jakob [phone] [facility] [phone] David [phone] Bedside Delivery ([facility]) [phone] [facility] History of Present illness [...] Goal Progress: Satisfactory Contact Info: Specialty ([place]) [phone] Jakob [phone] [facility] [phone] David [phone] Bedside Delivery ([facility]) [phone] [facility]: Call Information: Date [...] Location: Home Signature Required: Yes Shipping Address: [address] [place] [id number] Contact Info: Specialty ([place]) [phone] [facility] [phone] [facility] [phone] [facility] [phone] Bedside Delivery ([facility]) [phone] documented in this encounter [facility] Evaluation note Diagnosis FAYE (acute kidney injury)- Primary Acute kidney failure, unspecified Hydronephrosis due to obstruction of ureteral orifice Hydronephrosis due to obstruction of ureteral orifice FAYE (acute kidney injury) Acute kidney failure, unspecified [facility] Diagnosis Follow-up exam- Primary Unspecified follow-up examination [facility] Diagnosis Immunosuppressed status- Primary Unspecified disorder of immune mechanism Kidney replaced by transplant Liver replaced by transplant Abnormal blood chemistry Other abnormal blood chemistry High risk medication use Encounter for long-term (current) use of other medications Aftercare following organ transplant [facility] Attention to nephrostomy- Primary [facility] Diagnosis Other hydronephrosis- Primary [facility] Diagnosis FAYE (acute kidney injury) Acute kidney failure, unspecified 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) Encounter for screening for malignant neoplasm of prostate Special screening for malignant neoplasm of prostate [facility] Diagnosis Abnormal blood chemistry- Primary Other abnormal blood chemistry Liver transplant recipient Kidney replaced by transplant Immunosuppressed status Unspecified disorder of immune mechanism Aftercare following organ transplant [facility] Diagnosis Kidney replaced by transplant- Primary [facility] Diagnosis Immunosuppressed status- Primary Unspecified disorder of immune mechanism Kidney replaced by transplant Aftercare following organ transplant High risk medication use Encounter for long-term (current) use of other medications Other general symptoms and signs Abnormal blood chemistry Other abnormal blood chemistry Hypertension secondary to other renal disorders [facility] Diagnosis Histoplasmosis- Primary Histoplasmosis, unspecified [...] Fever Fever, unspecified [facility] Diagnosis Bilateral lower extremity edema- Primary 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) Atherosclerosis 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) Atherosclerosis of aorta Obesity (BMI 30-39.9) DARLENE (obstructive sleep apnea) Obstructive sleep apnea (adult) (pediatric) Tremor Abnormal involuntary movements Immunocompromised (CMS/HCC) Unspecified immunity deficiency Primary hypertension (CMS/HCC) Unspecified essential hypertension Shortness of breath documented in this encounter [facility]* Diagnosis Pleural effusion [...] specified pre-operative examination [facility] Diagnosis Heart failure, diastolic, acute- Primary Acute diastolic heart failure [facility] Consultation (Routine) - New Request Specialty Diagnoses / Procedures Referred By Contac t Referred To Contact Interventional Radiology Diagnoses Hydronephrosis due to obstruction of ureteral orifice Daya Saldana MD [address] [place] [phone] Referral ID Status Reason Start Date Expiration Date V isits Requested Visits Authorized [id number] New Request 05/18/2022 06/12/2023 1 1 * Radiology (Emergency) - New Request Specialty Diagnoses / Procedures Referred By Contac t Referred To Contact Procedures US RENAL TRANSPLANT SCAN Daya Saldana MD [address] [place] [phone] Referral ID Status Reason Start Date Expiration Date V isits Requested Visits Authorized [id number] New Request 05/16/2022 06/10/2023 1 1 * Consultation (Routine) - New Request Specialty Diagnoses / Procedures Referred By Contac t Referred To Contact Urology Diagnoses FAYE (acute kidney injury) Ryan Yepez MD [address] [place] [address] [address] [place] [address] Referral ID Status Reason Start Date Expiration Date V isits Requested Visits Authorized [id number] New Request 05/16/2022 06/10/2023 1 1 * MRI/CAT Scan (Routine) - New Request Specialty Diagnoses / Procedures Referred By Contac t Referred To Contact Diagnoses FAYE (acute kidney injury) Procedures CT ABDOMEN/PELVIS WITHOUT CONTRAST CHG CT SCAN,ABDOMENT AND PELVIS,W/O CONTRAST Ryan Yepez MD [facility] [address] [place] [address] Referral ID Status Reason Start Date Expiration Date V isits Requested Visits Authorized [id number] New Request 05/16/2022 06/10/2023 1 1 * (Routine) - Pending Review Specialty Diagnoses / Procedures Referred By Contac t Referred To Contact Procedures PLATELET MONITORING PER PROTOCOL Daya Saldana MD [address] [place] [phone] Referral ID Status Reason Start Date Expiration Date V isits Requested Visits Authorized [id number] Pending Review 05/15/2022 06/09/2023 1 1 * (Routine) - Pending Review Specialty Diagnoses / Procedures Referred By Contac t Referred To Contact Procedures DVT/VTE RISK ASSESSMENT Daya Saldana MD [address] [place] [address] Referral ID Status Reason Start Date Expiration Date V isits Requested Visits Authorized [id number] Pending Review 05/15/2022 06/09/2023 1 1 * (Routine) Specialty Diagnoses / Procedures Referred By Contac t Referred To Contact Evan Bennett MD [address] [place] [address] Referral ID Status Reason Start Date Expiration Date Visits Re quested Visits Authorized * (Routine) Specialty Diagnoses / Procedures Referred By Contac t Referred To Contact Evan Bennett MD [address] [place] [phone] Referral ID Status Reason Start Date Expiration Date Visits Re quested Visits Authorized [facility] for referral (narrative)* Consultation (Routine) - New Request Specialty Diagnoses / Procedures Referred By Contac t Referred To Contact Sleep Medicine Diagnoses Kevin Conroy MD [address] [place] [address] Referral ID Status Reason Start Date Expiration Date V isits Requested Visits Authorized [id number] New Request 09/10/2023 10/04/2024 1 1 * MRI/CAT Scan (Routine) - New Request Specialty Diagnoses / Procedures Referred By Contac t Referred To Contact Diagnoses Histoplasmosis Procedures CT CHEST WITHOUT CONTRAST CHG DIAGNOSTIC COMPUTED TOMOGRAPHY THORAX W/O Kevin Zarate MD [address] [place] [address] Referral ID Status Reason Start Date Expiration Date V isits Requested Visits Authorized [id number] New Request 09/10/2023 10/04/2024 1 1 * Radiology (Routine) - New Request Specialty Diagnoses / Procedures Referred By Contac t Referred To Contact Procedures US RENAL TRANSPLANT SCAN Steve Latham MBBS [address] [place] [address] Referral ID Status Reason Start Date Expiration Date V isits Requested Visits Authorized [id number] New Request 08/29/2023 09/22/2024 1 1 * (Routine) - New Request Specialty Diagnoses / Procedures Referred By Contac t Referred To Contact Procedures PLATELET MONITORING PER PROTOCOL Steve Latham MBBS [address] [place] [address] Referral ID Status Reason Start Date Expiration Date V isits Requested Visits Authorized [id number] New Request 08/28/2023 09/21/2024 1 1 * (Routine) - New Request Specialty Diagnoses / Procedures Referred By Contac t Referred To Contact Procedures DVT/VTE RISK ASSESSMENT Steve Latham MBBS [address] [place] [address] Referral ID Status Reason Start Date Expiration Date V isits Requested Visits Authorized [id number] New Request 08/28/2023 09/21/2024 [address] [facility] * Patient Instructions - Christin Elizabeth APRN-ROB - 10/19/2018 9:21 AM EST You should take an extra dose of the lactulose as needed so that you are having 3-4 bowel movementsdaily. You should start the chemical dependency counseling as soon as possible. If you have questions, call the transplant social services counselor Fidelina Pierson. in this encounter* Patient Instructions - Sophie Cary RN - 10/12/2018 11:09 AM EST You have been seen in the pre-transplant evaluation clinic by Dr. Restrepo and Sophie Cary. Sophie Cary is your pre-import coordinator she can be reached at [phone] at any time for questions during the pre-transplant process. Your evaluation is complete pendin. Abdominal ultrasound. 2. 6 minute walk test. 3. Cardiology evaluation. Additionally, your legal internship will recommend testing to screen for coronary artery disease. This will be scheduled for you after your cardiology visit. 4. Your coordinator will be requesting record from your last dental visit, colonoscopy and EGD. 5. Please work to complete social work recommendations. Your social services counselor will be contacting you to follow up on your progress. 6. You have also been referred for a kidney transplant. An appointment will be scheduled for you sari evaluated in the kidney transplant clinic after you have satisfied requirements dictated by [employer] company. Once your testing is complete, we [...] ___ Other Name MRN * Christin Elizabeth, WATERMASTER-MEDICAL SUPPORT SPECIALIST - 10/19/2018 9:00 AM EST Formatting of this note may be different from the original. History of Present Illness: Chief Complaint Patient presents with Follow-up Cirrhosis George Styles is a 48 y.o. male who presents to the [facility] Gastroenterology Clinic today regarding his diagnosis/chief complaint(s) of Cirrhosis secondary to ETOH, with ESRD follows with Dr. Orr. Currently undergoing evaluation for liver/kidney transplant. Has been seen in transplant clinic for eval. Still undergoing pre testing. Diagnosed in April 2018. Last drink was immediately prior to hospital admission in [place] for ACLF. Hospital course notable for ARF [...] (human immunodeficiency virus infection); Hyperlipidemia; Hyperthyroidism; Hypothyroidism; KS (myocardial infarction); Migraine; DARLENE (obstructive sleep apnea); [...] kidney transplant evaluation. Pt was AOx3. Transplant 911 Telecommunicator role/function was explained and reviewed. The patient was informed that the results of this assessment will be shared with the referring provider and the transplant team. The patient verbalized understanding of this information. The [facility] psychosocial assessment consent form has been explained to patient and has been signed. Pt is completing this evaluation with brother (David) in the Outpatient setting. SWK educated pt on the benefits of completing/filing advanced directives and resources were offered. Pt identifies with YAZIDI tenriism. Pt confirms being a [place] Citizen. Pt.'s [...] has valid license, does not regularly drive ([facility] recommends that he not to drive). [...] related disease etoh cirrohosis April dx in [facility] for thirty days. Pt reports learning [...] as well as referred him to pre import coordinator. Pt and support demonstrated moderate understanding [...] Patient's brother David is a self employed building contractor. Additional support includes his other brother Tyshawn and his Mary live fifteen minutes away. Of note Mary is a tire mechanic for a [employer] is available to assist floral department specialist. He confirms being comfortable asking for help. [...] in 2010, he was employed by the [employer]. He has access to SSDI payment (SSDI starts in November) in regards to financial means pre/ post-transplant. Pt confirms (meeting bills currently, ) being able to meet daily needs. Patient's brother asking for additional information on community resources, food stamps and Heap. Refer him to pt.'s dialysis center and the [facility]. Hereports access to Medicaid. Pt. denies history. [...] treatment after a DUI charge [facility] in [place], court ordered treatment in 2001 and in [...] by patient from his primary medical provider- MEDICAL SUPPORT SPECIALIST patient was noted as attending an [...] He was provided with local AOD resources, [facility] AOD informational packet. Pt was referred for [...] new visit Date of service: 10/12/2018 -Referring electromechanical equipment tester for today's consult: -Primary Care Provider: Zuly Bruno CC: Chief Complaint Patient presents with Liver Recipient Evaluation History of Present Illness George Styles is a 48 y.o. male who presents to the [facility] liver transplant surgery clinic today for [...] fatal processes progressing rapidly Unknown * Elisa Tiwari PCA - 10/12/2018 10:00 AM EST Timed up and go 9.9 seconds Cord Splicer Left 52.8 pounds Right 44.9 pounds Waist circ 38.5 inches * Sophie Cary RN - 10/12/2018 10:00 AM EST Formatting of this note may be different from the original. Patient George Styles ([id number]), accompanied by his brother, was seen on [...] any further questions. Sophie DON, RN Liver Auto Body Man Etiology: ETOH HCC: No ETOH: Yes Last [...] Orr MD [address] [address] Status Reason Specialty Diagnoses / Procedures Referred By Contact Referred To Contact New Request Diagnoses Cirrhosis of liver with ascites, unspecified hepatic cirrhosis type Procedures US ABDOMEN RUQ/LIVER/GB Yovani Orr MD [address] [place] [address] Specialty Diagnoses / Procedures Referred By Contac t Referred To Contact Diagnoses FAYE (acute kidney injury) Procedures CT ABDOMEN/PELVIS WITHOUT CONTRAST CHG CT SCAN,ABDOMENT AND PELVIS,W/O CONTRAST Central Scheduling [address] [place] [address] Referral ID Status Reason Start Date Expiration Date V isits Requested Visits Authorized [id number] Pending Review 05/16/2022 06/10/2023 1 1 Specialty Diagnoses / Procedures Referred By Contac t Referred To Contact Diagnoses Other hydronephrosis Procedures FLUORO IMAGING FOR UROLOGY Ryan Yepez MD [address] [facility] [address] [place] [address] Referral ID Status Reason Start Date Expiration Date V isits Requested Visits Authorized [id number] New Request 07/07/2022 08/01/2023 1 1 Specialty Diagnoses / Procedures Referred By Contac t Referred To Contact Procedures DIRECT ADMIT REQUEST Steve Latham, MBBS [address] [place] [address] Referral ID Status Reason Start Date Expiration Date V isits Requested Visits Authorized [id number] New Request 08/28/2023 09/21/2024 1 1 Specialty Diagnoses / Procedures Referred By Contac t Referred To Contact Radiology Diagnoses DARLENE (obstructive sleep apnea) Primary hypertension (CMS/HCC) Bilateral lower extremity edema Shortness of breath Procedures Echocardiogram 2D complete Zuly Bruno NP [address] [place] [address] Referral ID Status Reason Start Date Expiration Date Visits Requested Visits Authorized [id number] Incomplete Perform Procedure 01/06/2024 07/04/2024 1 1 Specialty Diagnoses / Procedures Referred By Contac t Referred To Contact Procedures US IMAGING REGIONAL ANESTHESIA Kehinde Gutierrez MD [address] [place] [address] Referral ID Status Reason Start Date Expiration Date V isits Requested Visits Authorized [id number] New Request 01/22/2024 02/15/2025 1 1 Specialty Diagnoses / Procedures Referred By Contac t Referred To Contact Cardiovascular Medicine Diagnoses Heart failure, diastolic, acute Kelvin Pacheco MD, MBBS [address] [place] [address] Referral ID Status Reason Start Date Expiration Date V isits Requested Visits Authorized [id number] New Request 01/20/2024 02/13/2025 1 1 Specialty Diagnoses / Procedures Referred By Contac t Referred To Contact Procedures US ABDOMEN LIVER DOPPLER US ABDOMEN LIVER TRANSPLANT DOPPLER Timothy Joseph MD [address] [facility] [address] [place] [address] Referral ID Status Reason Start Date Expiration Date V isits Requested Visits Authorized [id number] New Request 01/16/2024 02/09/2025 1 1 Specialty Diagnoses / Procedures Referred By Contac t Referred To Contact Procedures DVT/VTE RISK ASSESSMENT Kelvin Pacheco MD, MBBS [address] [place] [address] Referral ID Status Reason Start Date Expiration Date V isits Requested Visits Authorized [id number] New Request 01/16/2024 02/09/2025 1 1 Specialty Diagnoses / Procedures Referred By Contac t Referred To Contact Procedures PLATELET MONITORING PER PROTOCOL Kelvin Pacheco MD, MBBS [address] [place] [address] Referral ID Status Reason Start Date Expiration Date V isits Requested Visits Authorized [id number] New Request 01/16/2024 02/09/2025 1 1 Referral ID Status Reason Start Date Expiration Date V isits Requested Visits Authorized [id number] New Request 01/16/2024 02/09/2025 1 1 Specialty Diagnoses / Procedures Referred By Deni edwards Referred To Contact Procedures ECG Kelvin Pacheco MD, MBBS [address] [place] [address] Referral ID Status Reason Start Date Expiration Date V isits Requested Visits Authorized [id number] New Request 01/16/2024 02/09/2025 1 1 Advance Directives No Advanced Directives Records FoundDocuments on File Type Date Recorded Patient Service Operations Manager Expl anation Advance Directives and Living Will Power of Law Secretary Latest Code Status on File Code Status [...] Orr MD [address] [address] Status Reason Specialty Diagnoses / Procedures Referre d By Contact Referred To Contact Denied Diagnoses Alcoholic cirrhosis, unspecified whether ascites present Pre-transplant evaluation for liver transplant Procedures MRI ABDOMEN WITH CONTRAST IN MRI, ABDOMEN W/CONTRAST Yovani Orr MD [address] [address] Reason Comments Liver Recipient Evaluation Status Reason Specialty Diagnoses / Procedures Referred By Contact Referred To Contact New Request Transplant / Transplant Surgery Procedures PRE NEW PATIENT Yovani Orr MD [address] [address] Alfredito Restrepo MD [address] [place] [address] Reason Comments Reschedule Reason Comments Outside Medical Records Request Reason Comments Social Work Follow-up Reason Comments Kidney Stone Specialty Diagnoses / Procedures Referred By Deni edwards Referred To Contact Diagnoses Obstructing kidney stone, s/p kidney transplant 2019 Daya Saldana MD [address] [place] [address] [facility] [address] [place] [address] Referral ID Status Reason Start Date Expiration Date Visits Re quested Visits Authorized [id number] 1 1 Reason Comments Follow-up Reason Comments Kidney Recipient Follow-up Liver Recipient Follow-up Reason Comments Consult Reason Comments New Patient Hospital follow up Specialty Diagnoses / Procedures Referred By Contac t Referred To Contact Urology Diagnoses hosp fu with [address] prior Procedures NEW TO DOC/RET PATIENT Zuly Bruno, ROB [address] [place] [address] Ryan Yepez MD [address] [facility] [address] [place] [address] Referral ID Status Reason Start Date Expiration Date Visits Re quested Visits Authorized [id number] Closed 06/27/2022 07/22/2023 1 1 Specialty Diagnoses / Procedures Referred By Contac t Referred To Contact Diagnoses FAYE (acute kidney injury) Procedures CT ABDOMEN/PELVIS WITHOUT CONTRAST CHG CT SCAN,ABDOMENT AND PELVIS,W/O CONTRAST Central Scheduling [address] [place] [address] Referral ID Status Reason Start Date Expiration Date V isits Requested Visits Authorized [id number] Pending Review 05/16/2022 06/10/2023 1 1 Reason Comments Follow-up Specialty Diagnoses / Procedures Referred By Contac t Referred To Contact Urology Diagnoses 1 week fu post NT clamp Procedures RETURN PATIENT Zuly Bruno CNP [address] [place] [address] Ryan Yepez MD [address] [facility] [address] [place] [address] Referral ID Status Reason Start Date Expiration Date Visits Requested Visits Authorized [id number] Authorized - 07/07/2022 08/01/2023 2 2 Specialty Diagnoses / Procedures Referred By Contac t Referred To Contact Diagnoses Other hydronephrosis Procedures FLUORO IMAGING FOR UROLOGY Ryan Yepez MD [address] [facility] [address] [place] [address] Referral ID Status Reason Start Date Expiration Date V isits Requested Visits Authorized [id number] New Request 07/07/2022 08/01/2023 1 1 Specialty Diagnoses / Procedures Referred By Contac t Referred To Contact Urology Diagnoses 1 week fu post NT clamp Procedures RETURN PATIENT Zuly Bruno, MEDICAL SUPPORT SPECIALIST [address] [place] [address] Ryan Yepez MD [address] [facility] [address] [place] [phone] Referral ID Status Reason Start Date Expiration Date Visits Re quested Visits Authorized [id number] Closed 07/07/2022 08/01/2023 2 2 Reason Comments Liver Recipient Follow-up Reason Comments Kidney Recipient Follow-up Reason Comments Kidney Recipient Follow-up Specialty Diagnoses / Procedures Referred By Contac t Referred To Contact Diagnoses Kidney replaced by transplant Steve Latham MBBS [address] [place] [address] [facility] [address] [place] [address] Referral ID Status Reason Start Date Expiration Date Visits Re quested Visits Authorized [id number] 1 1 Specialty Diagnoses / Procedures Referred By Contac t Referred To Contact Diagnoses Pleural effusion on right PNEUMONIA- HX LIVER AND KIDNEY TRANSPLANT Kevin Prince MD [address] [place] [address] [facility] [address] [place] [address] Referral ID Status Reason Start Date Expiration Date Visits Re quested Visits Authorized [id number] 1 1 Reason Comments New Patient Specialty Diagnoses / Procedures Referred By Contac t Referred To Contact Cardiovascular Medicine Diagnoses Heart failure, diastolic, acute Kelvin Pacheco MD, MBBS [address] [place] [address] Referral ID Status Reason Start Date Expiration Date Visits Requested Visits Authorized [id number] Authorized - 01/20/2024 02/13/2025 5 5 (unrecognized sect ion and content) No Status Records FoundNo Status Records FoundNo Status Records FoundNo Status Records FoundNo Status Records FoundNo Status Records Found INFORMATION SOURCE (unrecogn ized section and content) DATE CREATED AUTHOR 01/07/2020 [facility] DATE CREATED AUTHOR AUTHOR'S ORGANIZ ATION 01/27/2021 [facility] DATE CREATED AUTHOR AUTHOR'S ORGANIZ ATION 04/13/2023 [facility] DATE CREATED AUTHOR AUTHOR'S ORGANIZ ATION 05/11/2023 [facility] DATE CREATED AUTHOR AUTHOR'S ORGANIZ ATION 03/02/2024 [facility] DATE CREATED AUTHOR AUTHOR'S ORGANIZ ATION 03/11/2024 [facility] dical Specialists EPIC Care Teams (unrecognized sec tion and content) Yam Curer Relationship Specialty Start Date End Date Zuly Bruno CNP PCP - General 07/19/18 Comfort Rivear [facility] [address] [facility] [place] [address] Pharmacist Pharmacist 05/16/20 Angel Carpio RPh,PharmD Pharmacist Pharmacist 05/16/20 Te Leigh RP,PharmD Pharmacist Pharmacist 01/09/21 Yam Curer Relationship Specialty Start Date End Date Zuly Bruno CNP PCP - General 07/19/18 Comfort Rivera RPH [address] [facility] [place] [address] [place] [address] Pharmacist Pharmacist 05/16/20 Angel Carpio RPh,PharmD Pharmacist Pharmacist 05/16/20 Te Leigh RPh,PharmD Pharmacist Pharmacist 01/09/21 Yam Curer Relationship Specialty Start Date End Date Zuly Bruno CNP PCP - General 07/19/18 Yam Curer Relationship Specialty Start Date End Date Zuly Bruno CNP PCP - General 07/19/18 Yam Curer Relationship Specialty Start Date End Date Zuly Bruno CNP PCP - General 07/19/18 Yam Curer Relationship Specialty Start Date End Date Zuly Bruno CNP PCP - General 07/19/18 Yam Curer Relationship Specialty Start Date End Date Zuly Bruno CNP PCP - General 07/19/18 Yam Curer Relationship Specialty Start Date End Date BrianlatishaZuly tipton CNP PCP - General 07/19/18 Yam Curer Relationship Specialty Start Date End Date BrianlatishaZuly tipton CNP PCP - General 07/19/18 Yam Curer Relationship Specialty Start Date End Date Zuly Bruno CNP PCP - General 07/19/18 Yam Curer Relationship Specialty Start Date End Date Zuly Bruno CNP PCP - General 07/19/18 Yam Curer Relationship Specialty Start Date End Date BrianlatishaZuly tipton CNP PCP - General 07/19/18 Yam Curer Relationship Specialty Start Date End Date Zuly Bruno CNP PCP - General 07/19/18 Yam Curer Relationship Specialty Start Date End Date LexielydialatishaZuly tipton CNP PCP - General 07/19/18 Yam Curer Relationship Specialty Start Date End Date Zuly Bruno CNP PCP - General 07/19/18 Yam Curer Relationship Specialty Start Date End Date Zuly Bruno CNP PCP - General 07/19/18 Yam Curer Relationship Specialty Start Date End Date Zuly Bruno CNP PCP - General 07/19/18 Evan White DO [address] [place] [address] Infectious Disease Infectious Disease 09/09/23 Yam Curer Relationship Specialty Start Date End Date Zuly Bruno CNP PCP - General 07/19/18 Evan White DO [address] [place] [address] Infectious Disease Infectious Disease 09/09/23 Yam Curer Relationship Specialty Start Date End Date Zuly Bruno CNP PCP - General 07/19/18 Evan White DO [address] [place] [address] Infectious Disease Infectious Disease 09/09/23 Yam Curer Relationship Specialty Start Date End Date Momo Verdugo MD PCP - General Family Medicine 05/21/23 Yam Curer Relationship Specialty Start Date End Date Momo Verdugo MD PCP - General Family Medicine 05/21/23 Yam Curer Relationship Specialty Start Date End Date Momo Verdugo MD PCP - General Family Medicine 05/21/23 Yam Curer Relationship Specialty Start Date End Date Zuly Bruno CNP PCP - General 07/19/18 Evan White DO [address] [place] [address] Infectious Disease Infectious Disease 09/09/23 Yam Curer Relationship Specialty Start Date End Date Zuly Bruno CNP PCP - General 07/19/18 Evan White DO [address] [place] [address] Infectious Disease Infectious Disease 09/09/23 Yam Curer Relationship Specialty Start Date End Date Zuly Bruno CNP PCP - General 07/19/18 Evan White DO [address] [place] [address] Infectious Disease Infectious Disease 09/09/23 Yam Curer Relationship Specialty Start Date End Date Zuly Bruno CNP PCP - General 07/19/18 Evan White DO [address] [place] [address] Infectious Disease Infectious Disease 09/09/23 Yam Curer Relationship Specialty Start Date End Date Zuly Bruno CNP PCP - General 07/19/18 Evan White DO [address] [place] [address] Infectious Disease Infectious Disease 09/09/23 Scheduled Active [...] RN) 0805 (Given - Provider: Josey Braun, SAMI) 0932 (Given - Provider: Leon Cook, RN) aspirin chewable tablet 81 mg 81 mg, Oral, DAILY, First dose on Thu05/16/22 at 0900, Until Discontinued 0807 (Given - Provider: Mel Hampton RN) 08 (Given - Provider: Josey Braun, SAMI) 0930 (Given - Provider: Leon Cook, SAMI) [...] Until Discontinued 0900 (Automatically Held - Provider: Ferd Prince MD)1700 (Automatically Held - Provider: Fred [...] 0715 0803 ($$New Bag$$ - Provider: Josey Braun, SAMI)1128 (Stopped - Provider: Josey Braun RN) Magnesium Sulfate 4 g in sterile water 50 ml premix IVPB (COMPLETED) 4 g, Intravenous, Administer over 4 Hours, ONCE, 1 dose, On Tu05/20/22 at 0700 0742 ($$New Bag$$ - Provider: Leno Cook RN)1035 (Stopped - Provider: Leon Cook [...] RN)2058 (Given - Provider: Carolyn Isaac RN) 07 (Given - Provider: Leon Cook RN)1999 (Canceled Entry - Provider: System Discharge - Comment: Automatically canceled at discontinue of medication order) polyethylene glycol (MIRALAX) packet 17 g 17 g, Oral, EVERY 12 HOURS, First dose (after last modification) on Thu05/16/22 at 0900, Until Discontinued 08 (Not Given - Provider: Mel Hampton RN - Reason: Patient with symptoms)1958 (Given - Provider: Carolyn Isaac RN) 113 (Not Given - Provider: Josey Braun RN - Reason: Patient/family refused)2100 (Not Given - Provider: aCrolyn Isaac RN - Reason: Patient/family refused - Comment: pt had multiple BM today) 930 (Given - Provider: Leon Cook RN)2099 (Canceled [...] Nishant Gamez MD)1999 (Given - Provider: Carolyn Isaac, SAMI) 08 (Given - Provider: Josey Braun, SAMI)2058 (Given - Provider: Carolyn Isaac, SAMI) 0931 (Given - Provider: Leon Cook, SAMI)2100 (Canceled Entry - Provider: System Discharge - Comment: Automatically canceled at discontinue of medication order) Tamsulosin HCl (FLOMAX) capsule 0.4 mg 0.4 mg, Oral, DAILY, First dose on Thu05/16/22 at 0900, Until Discontinued, Slow release product. Do not chew or crush 0807 (Given - Provider: Mel Hampton RN) 0805 (Given - Provider: Josey Braun, SAMI) 0933 (Given - Provider: Leon Cook, SAMI) [...] (See Alternative - Provider: Mel Hampton RN) 08 (Given - Provider: Josey Braun RN)2104 (Given [...] 200 mg, Oral, DAILY, First dose on Sat 30/23 at 0900, Until Discontinued 075 (Given - [...] 08 (Given - Provider: Terra Heart RN) 09 (Given - Provider: Cheyanne Mcdonough RN) Atorvastatin [...] 1142 (Given - Provider: Aixa Holden RN) 08 (Given - Provider: Terra Heart RN) tacrolimus [...] area)1414 ([facility] [place] - Provider: Automatic Transfer) 0920 (Given [...] Procedural area)1414 (MAR [place] - Provider: Automatic Transfer)1806 (Given - [...] 0842 (Given - Provider: Terra Heart RN)1053 ([facility] Hold - Provider: Automatic Transfer - Reason: [...] Provider: Erica Gudino RN)2033 (Given - Provider: Ttai Ahmadi RN) 08 (Given - Provider: Terra Heart RN)105 ([facility] Hold - Provider: Automatic Transfer - Reason: Transfer to a Procedural area)141 ([facility] Unhold - Provider: Automatic Transfer)2008 (Given - Provider: Tati Ahmadi RN) 919 (Given - Provider: Terra Heart RN) Sulfamethoxazole-trime thoprim (BACTRIM DS) 800-160 MG per tablet 1 tablet 1 tablet, Oral, THREE TIMES WEEKLY (Once per day on Thursday), First dose on Thu01/18/24 at 0900, Until Discontinued 0846 (Given - Provider: Terra Heart RN)1052 ([facility] Hold - Provider: Automatic Transfer - Reason: Transfer to a Procedural area)1413 ([facility] Unhold - Provider: Automatic Transfer) tacrolimus (PROGRAF) susp 0.2 mg 0.2 mg, Oral, CUSTOM FREQUENCY (Once per day on Thursday), First dose on Thu01/16/24 at 0900, Until Discontinued, Caution check route of administration. For sublingual administration, place liquid under tongue and allow absorption. 841 (Given - Provider: Erica Gudino RN) 1052 ([facility] Hold - Provider: Automatic Transfer - Reason: Transfer to a Procedural area)141 ([facility] Unhold - Provider: Automatic Transfer) 922 (Given - Provider: Terra Heart RN) Tamsulosin HCl (FLOMAX) capsule 0.4 mg 0.4 mg, Oral, DAILY, First dose on Thu01/16/24 at 0900, Until Discontinued, Slow release product. Do not chew or crush 841 (Given - Provider: Erica Gudino RN) 08 (Given - Provider: Terra Heart RN)1052 ([facility] Hold - Provider: Automatic Transfer - Reason: Transfer to a Procedural area)141 ([facility] Unhold - Provider: Automatic Transfer) 09 (Given - Provider: Terra Heart RN) Torsemide [...] 0841 (Given - Provider: Terra Heart RN)1053 ([facility] Hold - Provider: Automatic Transfer - Reason: Transfer to a Procedural area)1414 ([facility] Unhold - Provider: Automatic Transfer) 0920 (Given - Provider: Terra Heatr RN) PRN Medication Order 01/21/2024 01/22/2024 01/23/2024 Acetaminophen (TYLENOL) tablet 650 mg 650 mg, Oral, EVERY 6 HOURS NEEDED, Starting on 01/16/24 at 0202, Until 01/23/24 at 1752, Mild Pain, Moderate Pain, Severe Pain, Oral temp > 101.5 F, 1st line for Pain, Maximum dose of acetaminophen is 4000 mg from all sources in 24 hours. 1053 ([facility] Hold - Provider: Automatic Transfer - Reason: Transfer to a Procedural area)1414 ([facility] Unhold - Provider: Automatic Transfer)1806 (Given - [...] 200-200 mg and Simethicone 20 mg) 1053 ([facility] Hold - Provider: Automatic Transfer - Reason: Transfer to a Procedural area)1414 ([facility] Unhold - Provider: Automatic Transfer) guaiFENesin (ROBITUSSIN) oral solution 400 mg 400 mg, Oral, EVERY 6 HOURS NEEDED, Starting on 01/16/24 at 0202, Until 01/23/24 at 1752, Cough, Congestion 1053 ([facility] Hold - Provider: Automatic Transfer - Reason: Transfer to a Procedural area)1414 ([facility] Unhold - Provider: Automatic Transfer) HYDROmorphone (DILAUDID) [...] 0016, Until 01/23/24 at 1752, Insomnia 1053 ([facility] Hold - Provider: Automatic Transfer - Reason: Transfer to a Procedural area)1414 ([facility] Unhold - Provider: Automatic Transfer)2355 (Given - Provider: Tati Ahmadi RN) Ondansetron (ZOFRAN) tablet 4 mg(Linked Group 1) 4 mg, Oral, EVERY 6 HOURS NEEDED, Starting on 01/16/24 at 0202, Until 01/23/24 at 1752, Nausea / Vomiting, 1st line for Nausea/Vomiting 1053 ([facility] Hold - Provider: Automatic Transfer - Reason: Transfer to a Procedural area)1414 ([facility] Unhold - Provider: Automatic Transfer)1809 (See Alternative - Provider: Terra Heart RN) 0430 (See Alternative - Provider: Tati Ahmadi RN)1415 (Given - Provider: Terra Heart RN) Ondansetron 4mg/2ml (ZOFRAN) injection 4 mg(Linked Group 1) 4 mg, Intravenous, EVERY 6 HOURS NEEDED, Starting on 01/16/24 at 0202, Until 01/23/24 at 1752, Nausea / Vomiting, 1st line for Nausea/Vomiting 1053 ([facility] Hold - Provider: Automatic Transfer - Reason: Transfer to a Procedural area)1414 ([facility] Unhold - Provider: Automatic Transfer)1809 (Given - [...] 01/23/24 at 1752, Constipation 1st Line 1053 ([facility] Hold - Provider: Automatic Transfer [...] rate of 5mg/min. Maximum of 40mg/day. 1053 ([facility] Hold - Provider: Automatic Transfer [...] BE BASED ON THE PRIMARY CLINICAL RECORDS. [facility]. provides no warranty or guarantee of the accuracy or completeness of information in this document.
[2024-03-14 07:06] LABS: Basophils Percent Auto 0.3 % (0.2-2.0); Eosinophils Absolute Auto 0.1 10^3/uL (0.0-0.7); Eosinophils Percent Auto 3.1 % (0.9-7.0); Hematocrit 43.8 % (42.0-54.0); Hemoglobin 14.1 g/dL (14.0-18.0); Immature Granulocytes Abs Auto 0.01 10^3/uL (0.00-0.03); Immature Granulocytes Pct Auto 0.3 % (0.0-0.5); Lymphocytes Absolute Auto 1.5 10^3/uL (1.2-3.8); Lymphocytes Percent Auto 42.9 % (20.5-60.0); Mean Corpuscular HGB Conc 32.2 g/dL (29.9-35.2); Mean Corpuscular Hemoglobin 28.6 pg (25.9-34.0); Mean Corpuscular Volume 88.8 fL (80.0-94.0); Mean Platelet Volume 9.8 fL (9.5-13.5); Monocytes Absolute Auto 0.4 10^3/uL (0.3-0.8); Monocytes Percent Auto 10.2 % (1.7-12.0); Neutrophils Absolute Auto 1.5 10^3/uL (1.4-6.5); Neutrophils Percent Auto 43.2 % (43.0-75.0); Platelet Count 207 10^3/uL (150-450); Red Blood Count 4.93 10^6/uL (4.70-6.10); Red Cell Distribution Width 14.4 % (11.0-15.0); White Blood Count 3.5 10^3/uL (4.0-11.0)
[2024-03-14 07:11] LABS: Creatinine Urine Random 82.77 mg/dL (20.00-300.00); Total Protein Urine Random 16.4 mg/dL (<=11.9)
[2024-03-14 08:21] LABS: Alanine Aminotransferase 29 U/L (16-63); Albumin Level 3.9 g/dL (3.4-5.0); Alkaline Phosphatase 123 U/L (46-116); Anion Gap 12.2; Aspartate Amino Transferase 29 U/L (15-37); BUN Creatinine Ratio 12.9; Bilirubin Direct 0.3 mg/dL (0.0-0.2); Bilirubin Total 1.5 mg/dL (0.2-1.0); Calcium 9.8 mg/dL (8.5-10.1); Carbon Dioxide 27.6 mmol/L (21.0-32.0); Chloride 104 mmol/L (98-107); Estimated GFR (African America >60 (>=60); Estimated GFR (Non-African Ame 57 (>=60); Gamma Glutamyl Transpeptidase 22 U/L (15-85); Glucose 103 mg/dL (74-106); Phosphorus 3.7 mg/dL (2.6-4.7); Potassium 3.8 mmol/L (3.5-5.1); Sodium 140 mmol/L (136-145)
[2024-03-16 13:10] LABS: Tacrolimus (FK506), Blood 5.5 ng/mL (2.0-20.0)
== END 2024-03-14 06:46 | disposition home or self-care (01) ==
LOC: LAB 06:47
PROVIDERS: PCP Nurse Practitioner
DX: R79.9 Abnormal finding of blood chemistry, unspecified (principal); Z94.0 Kidney transplant status; Z94.4 Liver transplant status; Z48.298 Encounter for aftercare following other organ transplant
CPT/HCPCS: 36415; 80048; 80197; 82042; 82247; 82248; 82570; 82977; 83735; 84075; 84100; 84156; 84450; 84460; 85025

== ENCOUNTER 2024-03-21 06:48 | Outpatient (OUT) | payer MEDICARE, MEDICAID, SELFPAY ==
--- OUTSIDE RECORDS SUMMARY | 2024-03-21 06:55 | XMS_ITS | CCD ---
Author Organization [facility] Care Team Providers Care Manager Maintenance Name Role Phone Marissaz, Zuly Unavailable Unavailable [...] Unavailable AICHHOLZ, ZULY Primary Care Unavailable Aichholz [facility], Zuly Primary Care Provider [facility] Shirin [facility],PharmD, Angel Unavailable Unavailab makayla [facility],PharmD, Te Unavailable Unavai lable Aicholz [facility], [facility] Primary Care Provider MIGUEL CARDONA Attending Unavailable MISC, DR BURCH Admitting Unavailable MISC, DR BURCH Consulting Unavailable AICHHOLZ, TUCKPOINTER CLEANER CAULKER ZULY Primary Care Unavailable MISC, DR BUCRH Attending Unavailable MISC, DR BURCH Admitting Unavailable MISC, DR BURCH Consulting Unavailable AICHHOLZ, TUCKPOINTER CLEANER CAULKER ZULY Primary Care Unavailable MISC, DR BURCH Attending Unavailable ARCELIA PIZARRO Consulting Unavailable KE BURNHAM Attending Unavailable KE BURNHAM Admitting Unavailable DR MÓNICA JIMENEZ Consulting Unavailable AICHHOLZ, TUCKPOINTER CLEANER CAULKER ZULY Primary Care Unavailable KE BURNHAM Consulting Unavailable MISC, DR BURCH Consulting Unavailable MISC, DR BURCH Attending Unavailable AICHHOLZ, TUCKPOINTER CLEANER CAULKER ZULY Primary Care Unavailable MISC, DR DOCTOR Admitting Unavailable MISC, DR DOCTOR Consulting Unavailable MISC, DR DOCTOR Attending Unavailable AICHHOLZ, TUCKPOINTER CLEANER CAULKER ZULY Primary Care Unavailable MISC, DOCTOR Admitting Unavailable MISC, DR DOCTOR Consulting Unavailable AICHHOLZ, TUCKPOINTER CLEANER CAULKER ZULY Primary Care Unavailable MISC, DR DOCTOR Admitting Unavailable MISC, DR DOCTOR Attending Unavailable MELINDA, DR GEORGE Munoz Consulting Unavailable MELINDA, DR GEORGE Munoz Attending Unavailable AICHHOLZ, TUCKPOINTER CLEANER CAULKER ZULY Primary Care Unavailable MELIDNA, DR GEORGE Munoz Admitting Unavailable NAUN ., KE Consulting Unavailable MIRANDA, LYNDSAY Consulting Unavailable MELINDA, DR GEORGE Munoz Consulting Unavailable NAUN ., KE Attending Unavailable NAUN ., KE Admitting Unavailable AICHHOLZ, TUCKPOINTER CLEANER CAULKER ZULY Primary Care Unavailable NAUN ., KE Consulting Unavailable GIAN HERRING Consulting Unavailable AICHHOLZ, TUCKPOINTER CLEANER CAULKER ZULY Consulting Unavailable AICHHOLZ, TUCKPOINTER CLEANER CAULKER ZULY Attending Unavailable AICHHOLZ, TUCKPOINTER CLEANER CAULKER ZULY Admitting Unavailable AICHHOLZ, TUCKPOINTER CLEANER CAULKER ZULY Primary Care Unavailable MISC, DR BURCH Consulting Unavailable MISC, DR BURCH Admitting Unavailable MISC, DOCTOR Attending Unavailable AICHHOLZ, TUCKPOINTER CLEANER CAULKER ZULY Primary Care Unavailable MISC, DR DOCTOR Consulting Unavailable MISC, DR DOCTOR Attending Unavailable MISC, DR DOCTOR Admitting Unavailable AICHHOLZ, TUCKPOINTER CLEANER CAULKER ZULY Primary Care Unavailable MISC, DR BURCH Admitting Unavailable MISC, DR BURCH Consulting Unavailable MISC, DR DOCTOR Attending Unavailable AICHHOLZ, TUCKPOINTER CLEANER CAULKER ZULY Primary Care Unavailable MISC, DR DOCTOR Admitting Unavailable MISC, DR DOCTOR Consulting Unavailable AICHHOLZ, TUCKPOINTER CLEANER CAULKER ZULY Primary Care Unavailable MISC, DR DOCTOR Attending Unavailable MISC, DOCTOR Admitting Unavailable MISC, DR DOCTOR Consulting Unavailable AICHHOLZ, TUCKPOINTER CLEANER CAULKER ZULY Primary Care Unavailable MISC, DR DOCTOR Attending Unavailable AICHHOLZ, TUCKPOINTER CLEANER CAULKER ZULY Consulting Unavailable AICHHOLZ, TUCKPOINTER CLEANER CAULKER ZULY Attending Unavailable AICHHOLZ, TUCKPOINTER CLEANER CAULKER ZULY Admitting Unavailable AICHHOLZ, TUCKPOINTER CLEANER CAULKER ZULY Primary Care Unavailable DR MÓNICA JIMENEZ Consulting Unavailable Aichholz [facility], Zuly [facility] Unavailable Aicholz [facility] Primary Care Provider [phone] [facility] [place] WHIPPLEolas A Unavailable Momo Verdugo MD Primary Care Provider [phone] AICHHOLZ, ZULY Attending Unavailable AICHHOLZ, ZULY Attending Unavailable PALMA PALACIOS Attending Unavailable AICHHOLZ, ZULY Referring Unavailable KELBLEY, FIDELINA Attending Unavailable AICHHOLZ, ZULY Referring Unavailable BRINK, JOHNNA Attending Unavailable AICHHOLZ, ZULY Referring Unavailable BRINK, JOHNNA Attending Unavailable AICHHOLZ, ZULY Referring Unavailable BRINK, JOHNNA Attending Unavailable AICHHOLZ, ZULY Referring Unavailable BRINK, JOHNNA Attending Unavailable AICHHOLZ, ZULY Referring Unavailable KELBLEY, FIDELINA Attending Unavailable AICHHOLZ, ZULY Referring Unavailable BRINK, JOHNNA Attending Unavailable AICHHOLZ, ZULY Referring Unavailable AICHHOLZ, ZULY Attending Unavailable AICHHOLZ, ZULY Primary Care Unavailable CANDIE ALMAGUER Attending Unavailable KELVIN PACHECO K Referring Unavailable AICHHOLZ, ZULY Primary Care Unavailable AICHHOLZ, ZULY Primary Care Unavailable AICHHOLZ, ZULY Primary Care Unavailable AICHHOLZ, ZULY Primary Care Unavailable AICHHOLZ, ZULY Primary Care Unavailable EVAN WHITE Referring Unavailabl e HAKEEM ALAMO Attending Unavailable AICHHOLZ, ZULY Primary Care Unavailable SELF, SELF Referring Unavailable HAKEEM ALAMO Attending Unavailable AICHHOLZ, ZULY Primary Care Unavailable YEISON, STEVE S Referring Unavailable YEISON, STEVE S Attending Unavailable AICHHOLZ, ZULY Primary Care Unavailable YEISON, STEVE S Referring Unavailable YEISON, STEVE S Admitting Unavailable CONSULT, INFECTIOUS DISEASE Consulting Unav ailable NIKI, KEVIN Attending Unavailable AICHHOLZ, ZULY Primary Care Unavailable SYSTEM, PROVIDER NOT IN Referring Unavaila ble CONSULT, HEPATOBILIARY Consulting Unavailab le KELVIN PACHECO Attending Unavailable NIKI, KEVIN Admitting Unavailable AICHHOLZ, ZULY Primary Care Unavailable REBECA OLSEN Attending Unavailable SELF, SELF Referring Unavailable AICHHOLZ, ZULY Primary Care Unavailable TARA KELVIN K Referring Unavailable CANDIE ALMAGUER Attending Unavailable Allergies Allergy Classification Reported Allergen(s) Allergy Type Date of Onset Reaction(s) Facility (1 source) Shellfish; Translations: [SHELLFISH DERIVED] Propensity to adverse reactions (disorder) 8 [facility] Repository (20 sources) Shellfish-Derive d Products Propensity to adverse reactions to drug 9 [facility] (1 source) Shellfish Drug allergy (disorder) [facility] Repository Medications Current Medications Medication Drug Class(es) [...] 1 capsule by mouth once daily b uhtzsgb-V-azbkd acid (NEPHROCAPS) 1 MG capsule Take 1 capsule by mouth daily 0 Active aspirin 81 mg chewable tablet (20 sources) Platelet Aggregation Inhibitor, Nonsteroidal Anti-inflammatory Drug Start: End: aspirin 81 MG Chew Tab chewable tablet [...] ankle pain. 0 06/12/2020 06/12/2023 Discontinued lactulose 96466 mg powder for oral solution (19 sources) [...] Start: 06-08-2023 take 1 capsule by mo [facility] once daily Tamsulosin HCl 0.4 [...] at 0900, Until Discontinued, On hold since 01/18/2024 at 1009 until manually unheld Start: 12-13-2022 [...] itraconazole Fax results to: Dr. White - [phone] Transplant Neph - [phone] Each 09/10/2023 01/19/2024 Discontinued (Medication Reconciliation (suppress cancel msg)) Start: 09-10-2023 CUSTOM MEDICAT ION Labs to be obtained: 1- Tacrolimus level, trough - collect twice weekly until 09/24/23, then weekly until 10/08/23, them once every two weeks there after. 2- Itraconazole level - obtain once between 09/14-09/18. 3- Chem 6 - Obtain weekly while on itraconazole Fax results to: Dr. White - [phone] Transplant Neph - [phone] Each 0 09/10/2023 Active Diatrizoate (1 [...] 01/16/2023 Discontinued take 2 tablets by mo uth in the morning magnesium oxide (Mag-Ox) 400 [...] DAILY (Solid Organ Transplant), First dose on 2/17/24 at 0800, Until Discontinued, Give on an [...] (ROXICODONE) tablet 10 mg polyethylene glycol 3350 41166 mg powder for oral solution (20 sources) [...] rate of 5mg/min. Maximum of 40mg/day. sennosides, fci 8.6 mg oral tablet (1 [...] NEEDED, Starting on Thu08/28/23 at 1734, Until 10/13/23 at 1645, Carrier Fluid - See Admin. [...] Coronary arteriosclerosis; Translations: [Atherosclerotic heart disease of [place] coronary artery without angina pectoris] Onset: 3 [...] sources) Taking high risk medication; Translations: [Other consular officer (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] Episodic Other and ill-defined [...] 05-10-2020 Episodic Other aftercare (2 sources) Other consular officer (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; Translations: [OTH DETENTION 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 THERAPY] Onset: 07-06-2022 Episodic Other aftercare (1 source) correction (current) use of aspirin; Translations: [DETENTION CURRENT USE OF ASPIRIN] Onset: 06-20-2022 Episodic [...] transplant] Onset: 08-28-2023 Unclassified (1 source) Other consular officer (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; Translations: [Other consular officer (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] Onset: 08-28-2023 Unclassified (1 source) Hypertension secondary to other renal disorders; Translations: [Hypertension secondary to other renal disorders] Onset: 08-28-2023 Results Test Name Value Interpretation Reference Range Facility B-TYPE NATRIURETIC PEPTIDE ( BRAIN)on 02-26-2024 Natriuretic peptide B (Bld) [Mass/Vol] 72 pg/mL Normal 0-100 [facility] Comment on above: Performed By: #### B DUTY OFFICER ####[facility] (DEFAULT)[address] [address] Interpretation and review of laboratory results Normal [facility] Natriuretic peptide B (Bld) [Mass/Vol] 72 pg/mL 0 - 100 pg/mL [facility] CHEM 6 (LYTES, BUN CREA)on 0 02-26-2024 Anion gap [Moles/Vol] 13 mmol/L Normal 7-17 [facility] Comment on above: Performed By: #### C HM6 ####[facility] (DEFAULT)[address] [place] [address] Chloride [Moles/Vol] 107 mmol/L Normal 98-108 [facility] Comment on above: Performed By: #### C HM6 ####[facility] (DEFAULT)[address] [place] [address] CO2 [Moles/Vol] 25 mmol/L Normal 21-31 [facility] Comment on above: Performed By: #### C HM6 ####[facility] (DEFAULT)[address] [place] [address] Creatinine [Mass/Vol] 1.23 mg/dL Normal 0.70-1.30 [facility] Comment on above: Performed By: #### C HM6 ####[facility] (DEFAULT)[address] [place] [address] GFR/1.73 sq M.predicted among non-blacks MDRD (S/P/Bld) [Vol rate/Area] 70 mL/min/{1.73_m2} Normal >=60 [facility] Comment on above: Result Comment: Repo rted eGFR is based on the CKD-EPI 2020 equation using creatinine, age, and sex. Performed By: #### C HM6 ####[facility] (DEFAULT)[address] [place] [address] Potassium [Moles/Vol] 4.2 mmol/L Normal 3.5-5.0 [facility] Comment on above: Performed By: #### C HM6 ####[facility] (DEFAULT)[address] [place] [address] Sodium [Moles/Vol] 141 mmol/L Normal 135-145 [facility] Comment on above: Performed By: #### C HM6 ####[facility] (DEFAULT)[address] [place] [address] Urea nitrogen [Mass/Vol] 17 mg/dL Normal 7-25 [facility] Comment on above: Performed By: #### C HM6 ####[facility] (DEFAULT)[address] [place] [address] Urea nitrogen/Creatinine [Mass ratio] 14 mg/mg Normal [facility] Comment on above: Performed By: #### C HM6 ####[facility] (DEFAULT)[address] [place] [address] Anion gap [Moles/Vol] 13 mmol/L 7 - 17 mmol/L [facility] Chloride [Moles/Vol] 107 mmol/L 98 - 10 8 mmol/L [facility] CO2 [Moles/Vol] 25 mmol/L 21 - 31 mmol/L [facility] Creatinine [Mass/Vol] 1.23 mg/dL 0.70 - 1.30 mg/dL [facility] eGFR, CKD-EPI, Male 70 - PINF [facility] Comment on above: Reported eGFR is bas ed on the CKD-EPI 2020 equation using creatinine, age, and sex. Potassium [Moles/Vol] 4.2 mmol/L 3.5 - 5.0 mmol/L [facility] Sodium [Moles/Vol] 141 mmol/L 135 - 145 mmol/L [facility] Urea nitrogen [Mass/Vol] 17 mg/dL 7 - 25 mg/dL [facility] Urea nitrogen/Creatinine [Mass ratio] 14 mg/mg [facility] CBC,PLATELETSon 01-23-2024 Hematocrit (Bld) [Volume fraction] 37.0 % Low 39.6-48.8 [facility] Comment on above: Performed By: #### H [facility] ####[facility] (DEFAULT)[address] [place] [address] Hemoglobin (Bld) [Mass/Vol] 12.0 g/dL Low 13.4-16.8 [facility] Comment on above: Performed By: #### [facility] ####[facility] (DEFAULT)[address] [place] [address] MCV (RBC) [Entitic vol] 88.1 fL Normal 79.0-94.5 [facility] Comment on above: Performed By: #### H [facility] ####[facility] (DEFAULT)[address] [place] [address] Mean Cell Hgb 28.6 pg Normal 26.1-33.3 [facility] Comment on above: Performed By: #### H EMOGC ####[facility] (DEFAULT)[address] [place] [address] Mean Cell Hgb Conc 32.4 g/dL Normal 31.9-36.5 [facility] Comment on above: Performed By: #### H EMOGC ####[facility] (DEFAULT)[address] [place] [address] Platelet mean volume (Bld) [Entitic vol] 10.4 fL Normal 8.7-12.3 [facility] Comment on above: Performed By: #### H EMOGC ####[facility] (DEFAULT)[address] [place] [address] Platelets (Bld) [#/Vol] 170 10*3/uL Normal 146-337 [facility] Comment on above: Performed By: #### H EMOGC ####[facility] (DEFAULT)[address] [facility] [address] RBC (Bld) [#/Vol] 4.20 10*6/uL Low 4.38-5.83 [facility] Comment on above: Performed By: #### H EMOGC ####[facility] (DEFAULT)[address] [place] [address] RBC Distribution 14.2 % Normal 10.9-14.3 [facility] Comment on above: Performed By: #### H EMOGC ####[facility] (DEFAULT)[address] [place] [address] WBC (Bld) [#/Vol] 3.70 10*3/uL Low 3.73-10.10 [facility] Comment on above: Performed By: #### H EMOGC ####[facility] (DEFAULT)[address] [place] [address] Erythrocyte distribution width (RBC) [Ratio] 14.2 % 10.9 - 14.3 % [facility] Hematocrit (Bld) [Volume fraction] 37.0 % Low 39.6 - 48.8 % [facility] Hemoglobin (Bld) [Mass/Vol] 12.0 g/dL Low 13.4 - 16.8 g/dL [facility] Interpretation and review of laboratory results Abnormal [facility] MCH (RBC) [Entitic mass] 28.6 pg 26.1 - 33.3 pg [facility] MCHC (RBC) [Mass/Vol] 32.4 g/dL 31.9 - 36.5 g/dL [facility] MCV (RBC) [Entitic vol] 88.1 fL 79.0 - 94.5 fL [facility] Platelet mean volume (Bld) [Entitic vol] 10.4 fL 8.7 - 12.3 fL [facility] Platelets (Bld) [#/Vol] 170 10*3/uL 146 - 337 K/uL [facility] RBC (Bld) [#/Vol] 4.20 10*6/uL Low [facility] WBC (Bld) [#/Vol] 3.70 10*3/uL Low 3.73 - 10. 10 K/uL [facility] CHEM 7 (LYTES,BUN,CREA,GLUC) on 01-23-2024 Anion gap [Moles/Vol] 14 mmol/L Normal 7-17 [facility] Comment on above: Performed By: #### NATHANIEL RAMÍREZ, HFP ####[facility] (DEFAULT)[address] [place] [address] Chloride [Moles/Vol] 105 mmol/L Normal 98-108 [facility] Comment on above: Performed By: #### NATHANIEL RAMÍREZ, HFP ####[facility] (DEFAULT)[address] [place] [address] CO2 [Moles/Vol] 25 mmol/L Normal 21-31 [facility] Comment on above: Performed By: #### NATHANIEL RAMÍREZ, HFP ####[facility] (DEFAULT)[address] [place] [address] Creatinine [Mass/Vol] 1.32 mg/dL High 0.70-1.30 [facility] Comment on above: Performed By: #### NATHANIEL RAMÍREZ, HFP ####[facility] (DEFAULT)[address] [place] [address], [place] [address] GFR/1.73 sq M.predicted among non-blacks MDRD (S/P/Bld) [Vol rate/Area] 65 mL/min/{1.73_m2} Normal >=60 [facility] Comment on above: Result Comment: Repo rted eGFR is based on the CKD-EPI 2020 equation using creatinine, age, and sex. Performed By: #### NATHANIEL RAMÍREZ, HFP ####[facility] (DEFAULT)[address] [place] [address], [place] [address] Glucose [Mass/Vol] 94 mg/dL Normal 70-99 [facility] Comment on above: Performed By: #### NATHANIEL RAMÍREZ, HFP ####[facility] (DEFAULT)[address] [facility] [place] [address] Osmolality [Osmolality] 296 mosm/kg Normal 278-305 [facility] Comment on above: Performed By: #### NATHANIEL RAMÍREZ, HFP ####[facility] (DEFAULT)[address] [facility] [address] Potassium [Moles/Vol] 3.8 mmol/L Normal 3.5-5.0 [facility] Comment on above: Performed By: #### NATHANIEL RAMÍREZ, HFP ####[facility] (DEFAULT)[address] [place] [address] Sodium [Moles/Vol] 140 mmol/L Normal 135-145 [facility] Comment on above: Performed By: #### NATHANIEL RAMÍREZ, HFP ####[facility] (DEFAULT)[address] [facility] [address] Urea nitrogen [Mass/Vol] 23 mg/dL Normal 7-25 [facility] Comment on above: Performed By: #### NATHANIEL RAMÍREZ, HFP ####[facility] (DEFAULT)[address] [facility] [address] Urea nitrogen/Creatinine [Mass ratio] 17 mg/mg Normal [facility] Comment on above: Performed By: #### NATHANIEL RAMÍREZ, HFP ####[facility] (DEFAULT)[address] [place] [address] Anion gap [Moles/Vol] 14 mmol/L 7 - 17 mmol/L [facility] Chloride [Moles/Vol] 105 mmol/L 98 - 10 8 mmol/L [facility] CO2 [Moles/Vol] 25 mmol/L 21 - 31 mmol/L [facility] Creatinine [Mass/Vol] 1.32 mg/dL High 0.70 - 1.30 mg/dL [facility] eGFR, CKD-EPI, Male 66 - PINF [facility] Comment on above: Reported eGFR is bas ed on the CKD-EPI 2020 equation using creatinine, age, and sex. Glucose [Mass/Vol] 94 mg/dL 70 - 99 mg/dL [facility] Osmolality Calc [Osmolality] 296 [facility] Potassium [Moles/Vol] 3.8 mmol/L 3.5 - 5.0 mmol/L [facility] Sodium [Moles/Vol] 140 mmol/L 135 - 145 mmol/L [facility] Urea nitrogen [Mass/Vol] 23 mg/dL 7 - 25 mg/dL [facility] Urea nitrogen/Creatinine [Mass ratio] 17 mg/mg [facility] GLUCOSE POCon 01-23-2024 Glucose [Mass/Vol] 88 mg/dL 70 - 99 mg/dL [facility] POC Sample Type CAPBL [facility] Test performed at ad dress of the patient encounter. [facility] Glucose [Mass/Vol] 191 mg/dL High 70 - 99 mg/dL [facility] Interpretation and review of laboratory results Abnormal [facility] POC Sample Type CAPBL [facility] Test performed at ad dress of the patient encounter. [facility] HEPATIC FUNCTION PANELon Albumin [Mass/Vol] 3.9 g/dL Normal 3.5-5.0 [facility] Comment on above: Performed By: #### TJ RAMÍREZ7, HFP ####[facility] (DEFAULT)[address] [place] [address] ALP [Catalytic activity/Vol] 83 U/L Normal 32-126 [facility] Comment on above: Performed By: #### NATHANIEL RAMÍREZ, HFP ####[facility] (DEFAULT)[address] [place] [address] ALT [Catalytic activity/Vol] 9 U/L Low 10-52 [facility] Comment on above: Performed By: #### NATHANIEL RAMÍREZ, HFP ####[facility] (DEFAULT)[address] [place] [address] AST [Catalytic activity/Vol] 17 U/L Normal 10-39 [facility] Comment on above: Performed By: #### TJ RAMÍREZ7, HFP ####[facility] (DEFAULT)[address] [place] [address] Bilirubin [Mass/Vol] 1.6 mg/dL High <1.5 [facility] Comment on above: Performed By: #### Rod BLOOM CHM7, HFP ####[facility] (DEFAULT)[address] [place] [address] Bilirubin.indirect [Mass/Vol] 0.4 mg/dL High <0.3 [facility] Comment on above: Performed By: #### TJ RAMÍREZ7, HFP ####[facility] (DEFAULT)[address] [place] [address] Protein [Mass/Vol] 6.6 g/dL Normal 6.4-8.3 [facility] Comment on above: Performed By: #### M MERLE, CHM7, [facility] ####[facility] (DEFAULT)[address] [place] [address] Albumin [Mass/Vol] 3.9 g/dL 3.5 - 5.0 g/dL [facility] ALP [Catalytic activity/Vol] 83 U/L 32 - 126 U/L [facility] ALT [Catalytic activity/Vol] 9 U/L Low 10 - 52 U/L [facility] AST [Catalytic activity/Vol] 17 U/L 10 - 39 U/L [facility] Bilirubin [Mass/Vol] 1.6 mg/dL High NINF - 1.5 mg/dL [facility] Bilirubin.direct [Mass/Vol] 0.4 mg/dL High NINF - 0.3 mg/dL [facility] Protein [Mass/Vol] 6.6 g/dL 6.4 - 8.3 g/dL [facility] ITRACONAZOLE LEVELon 01-23- 024 Hydroxyitraconazole [Mass/Vol] 7.6 mcg/mL [facility] Comment on above: REFERENCE VALUE No therapeutic range established; activity and serum concentration are similar to parent drug. ADDITIONAL INFORMATION This test was developed and its performance characteristics determined by [facility] in a manner consistent with CLIA requirements. This test has not been cleared or approved by the U.S. Food and Drug Administration. Test Performed by: [facility] [address] [place] [address] Plant Security Guard: Rosendo Bose M.D. Ph.D.; IA# [id number] Itraconazole [Mass/Vol] 6.0 mcg/mL [facility] Comment on above: REFERENCE VALUE >0.5 (localized infection), >1.0 (systemic infection) [facility] MAGNESIUMon 01-23-2024 Magnesium [Mass/Vol] 1.8 mg/dL Normal 1.6-2.6 [facility] Comment on above: Performed By: #### M MERLE, M7, [facility] ####[facility] (DEFAULT)[address] [place] [address] Interpretation and review of laboratory results Normal [facility] Magnesium [Mass/Vol] 1.8 mg/dL 1.6 - 2 .6 mg/dL [facility] No Panel Informationon 01-23 Interpretation and review of laboratory results Abnormal [facility] TACROLIMUS LEVEL, TROUGH ([place] E DRUG LEVEL)on 01-23-2024 Interpretation and review of laboratory results Normal [facility] Tacrolimus (Bld) [Mass/Vol] 7.0 ng/mL Bone Marrow Transplant: 4.0-12.0, Therapeutic: 5.0-15.0 [facility] Method performed is a chemiluminescent microparticle immunoasssay on the [employer] i2000. The range is based on experience at [facility] and users should be aware that target concentrations vary widely depending on concomitant therapy, time post-transplant, and desired degree of immunosuppression. [facility] Tacrolimus, Trough 7.0 ng/mL Normal Bone Susana ow Transplant: 4.0-12.0, Therapeutic: 5.0-15.0 [facility] Comment on above: Order Comment: Pleas e draw at specified interval PRIOR to dose. Do not hold dose to wait for level. Specimens batched twice per day, (M-) and once per day weekendsMethod performed is a chemiluminescent microparticle immunoasssay on the [employer] i2000.The range is based on experience at [facility] and users should be aware that target concentrations vary widely depending on concomitant therapy, time post-transplant, and desired degree of immunosuppression. Performed By: #### T ACRO ####[facility] (DEFAULT)[address] [place] [address] CARDIAC RHYTHM (SCANNED)on 0 01-22-2024 [facility] CBC,PLATELETSon 01-22-2024 Hematocrit (Bld) [Volume fraction] 41.5 % Normal 39.6-48.8 [facility] Comment on above: Performed By: #### H EMOGC ####[facility] (DEFAULT)[address] [facility] [address] Hemoglobin (Bld) [Mass/Vol] 13.3 g/dL Low 13.4-16.8 [facility] Comment on above: Performed By: #### H EMOGC ####[facility] (DEFAULT)[address] [facility] [address] MCV (RBC) [Entitic vol] 86.8 fL Normal 79.0-94.5 [facility] Comment on above: Performed By: #### H EMOGC ####[facility] (DEFAULT)[address] [place] [address] Mean Cell Hgb 27.8 pg Normal 26.1-33.3 [facility] Comment on above: Performed By: #### H EMOGC ####[facility] (DEFAULT)[address] [place] [address] Mean Cell Hgb Conc 32.0 g/dL Normal 31.9-36.5 [facility] Comment on above: Performed By: #### H EMOGC ####[facility] (DEFAULT)[address] [facility] [address] Platelet mean volume (Bld) [Entitic vol] 10.5 fL Normal 8.7-12.3 [facility] Comment on above: Performed By: #### H EMO ####[facility] (DEFAULT)[address] [place] [address] Platelets (Bld) [#/Vol] 186 10*3/uL Normal 146-337 [facility] Comment on above: Performed By: #### H EMO ####[facility] (DEFAULT)[address] [place] [address] RBC (Bld) [#/Vol] 4.78 10*6/uL Normal 4.38-5.83 [facility] Comment on above: Performed By: #### H [facility] ####[facility] (DEFAULT)[address] [place] [address] RBC Distribution 14.1 % Normal 10.9-14.3 [facility] Comment on above: Performed By: #### H EMO ####[facility] (DEFAULT)[address] [place] [address] WBC (Bld) [#/Vol] 3.74 10*3/uL Normal 3.73-10.10 [facility] Comment on above: Performed By: #### H [facility] ####[facility] (DEFAULT)[address] [place] [address] Erythrocyte distribution width (RBC) [Ratio] 14.1 % 10.9 - 14.3 % [facility] Hematocrit (Bld) [Volume fraction] 41.5 % 39.6 - 48.8 % [facility] Hemoglobin (Bld) [Mass/Vol] 13.3 g/dL Low 13.4 - 16.8 g/dL [facility] Interpretation and review of laboratory results Abnormal [facility] MCH (RBC) [Entitic mass] 27.8 pg 26.1 - 33.3 pg [facility] MCHC (RBC) [Mass/Vol] 32.0 g/dL 31.9 - 36.5 g/dL [facility] MCV (RBC) [Entitic vol] 86.8 fL 79.0 - 94.5 fL [facility] Platelet mean volume (Bld) [Entitic vol] 10.5 fL 8.7 - 12.3 fL [facility] Platelets (Bld) [#/Vol] 186 10*3/uL 146 - 337 K/uL [facility] RBC (Bld) [#/Vol] 4.78 10*6/uL [facility] WBC (Bld) [#/Vol] 3.74 10*3/uL 3.73 - 10. 10 K/uL [facility] CHEM 7 (LYTES,BUN,CREA,GLUC) on 01-22-2024 Anion gap [Moles/Vol] 13 mmol/L Normal 7-17 [facility] Comment on above: Performed By: #### Rod BLOOM CHM7 ####[facility] (DEFAULT)[address] [place] [address] Chloride [Moles/Vol] 109 mmol/L High 98-108 [facility] Comment on above: Performed By: #### Rod BLOOM CHM7 ####[facility] (DEFAULT)[address] [place] [address] CO2 [Moles/Vol] 23 mmol/L Normal 21-31 [facility] Comment on above: Performed By: #### Rod BLOOM CHM7 ####[facility] (DEFAULT)[address] [place] [address] Creatinine [Mass/Vol] 1.10 mg/dL Normal 0.70-1.30 [facility] Comment on above: Performed By: #### Rod BLOOM CHM7 ####[facility] (DEFAULT)[address] [place] [address] GFR/1.73 sq M.predicted among non-blacks MDRD (S/P/Bld) [Vol rate/Area] 81 mL/min/{1.73_m2} Normal >=60 [facility] Comment on above: Result Comment: Repo rted eGFR is based on the CKD-EPI 2020 equation using creatinine, age, and sex. Performed By: #### NATHANIEL RAMÍREZ ####[facility] (DEFAULT)[address] [place] [address] Glucose [Mass/Vol] 84 mg/dL Normal 70-99 [facility] Comment on above: Performed By: #### TJ RAMÍREZ7 ####[facility] (DEFAULT)[address] [place] [address] Osmolality [Osmolality] 295 mosm/kg Normal 278-305 [facility] Comment on above: Performed By: #### TJ RAMÍREZ7 ####[facility] (DEFAULT)[address] [place] [address] Potassium [Moles/Vol] 4.0 mmol/L Normal 3.5-5.0 [facility] Comment on above: Performed By: #### NATHANIEL RAMÍREZ ####[facility] (DEFAULT)[address] [place] [address] Sodium [Moles/Vol] 141 mmol/L Normal 135-145 [facility] Comment on above: Performed By: #### TJ RAMÍREZ7 ####[facility] (DEFAULT)[address] [place] [address] Urea nitrogen [Mass/Vol] 16 mg/dL Normal 7-25 [facility] Comment on above: Performed By: #### NATHANIEL RAMÍREZ ####[facility] (DEFAULT)[address] [place] [address] Urea nitrogen/Creatinine [Mass ratio] 15 mg/mg Normal [facility] Comment on above: Performed By: #### TJ RAMÍREZ7 ####[facility] (DEFAULT)[address] [place] [address] Anion gap [Moles/Vol] 13 mmol/L 7 - 17 mmol/L [facility] Chloride [Moles/Vol] 109 mmol/L High 98 - 10 8 mmol/L [facility] CO2 [Moles/Vol] 23 mmol/L 21 - 31 mmol/L [facility] Creatinine [Mass/Vol] 1.10 mg/dL 0.70 - 1.30 mg/dL [facility] eGFR, CKD-EPI, Male 81 - PINF [facility] Comment on above: Reported eGFR is bas ed on the CKD-EPI 2020 equation using creatinine, age, and sex. Glucose [Mass/Vol] 84 mg/dL 70 - 99 mg/dL [facility] Interpretation and review of laboratory results Abnormal [facility] Osmolality Calc [Osmolality] 295 [facility] Potassium [Moles/Vol] 4.0 mmol/L 3.5 - 5.0 mmol/L [facility] Sodium [Moles/Vol] 141 mmol/L 135 - 145 mmol/L [facility] Urea nitrogen [Mass/Vol] 16 mg/dL 7 - 25 mg/dL [facility] Urea nitrogen/Creatinine [Mass ratio] 15 mg/mg [facility] MAGNESIUMon 01-22-2024 Magnesium [Mass/Vol] 2.0 mg/dL Normal 1.6-2.6 [facility] Comment on above: Performed By: #### M MERLE CHM7 ####[facility] (DEFAULT)[address] [place] [address] Interpretation and review of laboratory results Normal [facility] Magnesium [Mass/Vol] 2.0 mg/dL 1.6 - 2 .6 mg/dL [facility] No Panel Informationon 01-22 [facility] PT,INR,PTTon 01-22-2024 aPTT Coag (Bld) [Time] 29.2 s Normal 24.0-34.3 [facility] Comment on above: Performed By: #### P TPTT ####[facility] (DEFAULT)[address] [place] [address] INR Coag (PPP) [Relative time] 1.1 {INR} Normal 0.9-1.1 [facility] Comment on above: Performed By: #### P TPTT ####[facility] (DEFAULT)[address] [place] [address] PT Coag (PPP) [Time] 14.3 s High 11.9-14.2 [facility] Comment on above: Performed By: #### P TPTT ####[facility] (DEFAULT)[address] [place] [address] aPTT Coag (PPP) [Time] 29.2 s [facility] INR Coag (Bld) [Relative time] 1.1 {INR} 0.9 - 1.1 [facility] Interpretation and review of laboratory results Abnormal [facility] PT Coag (PPP) [Time] 14.3 s High [facility] TACROLIMUS LEVEL, TROUGH (UT E DRUG LEVEL)Ordered By: Sheree Jensen on 01-22-2024 Interpretation and review of laboratory results Normal [facility] Tacrolimus (Bld) [Mass/Vol] 7.9 ng/mL Bone Marrow Transplant: 4.0-12.0, Therapeutic: 5.0-15.0 [facility] Method performed is a chemiluminescent microparticle immunoasssay on the [employer] i2000. The range is based on experience at [facility] and users should be aware that target concentrations vary widely depending on concomitant therapy, time post-transplant, and desired degree of immunosuppression. [facility] TACROLIMUS LEVEL, TROUGH (UT E DRUG LEVEL)on 01-22-2024 Tacrolimus, Trough 7.9 ng/mL Normal Bone Susana ow Transplant: 4.0-12.0, Therapeutic: 5.0-15.0 [facility] Comment on above: Order Comment: Pleas e draw at specified interval PRIOR to dose. Do not hold dose to wait for level. Specimens batched twice per day, (M-F) and once per day weekendsMethod performed is a chemiluminescent microparticle immunoasssay on the [employer] i2000.The range is based on experience at [facility] and users should be aware that target concentrations vary widely depending on concomitant therapy, time post-transplant, and desired degree of immunosuppression. Performed By: #### T ACRO ####[facility] (DEFAULT)[address] [place] [address] TYPE AND SCREENon 01-22-2024 ABO/RH(D) TYPE Positive [facility] ABO/RH(D) TYPE Positive Normal [facility] Comment on above: Performed By: #### X M ####[facility] (DEFAULT)[address] [place] [address], [place] [address] [place] Unspecified body regionOr dered By: Unassigned Pacs on 01-22-2024 [facility] Work Phone: [place] Unspecified body regionon 01-22-2024 Radiology Study observation (narrative) [facility] CBC,PLATELETSon 01-21-2024 Hematocrit (Bld) [Volume fraction] 39.4 % Low 39.6-48.8 [facility] Comment on above: Performed By: #### H EMOGC ####[facility] (DEFAULT)[address] [place] [address] Hemoglobin (Bld) [Mass/Vol] 12.7 g/dL Low 13.4-16.8 [facility] Comment on above: Performed By: #### H EMOGC ####[facility] (DEFAULT)[address] [place] [address], [place] [address] MCV (RBC) [Entitic vol] 87.0 fL Normal 79.0-94.5 [facility] Comment on above: Performed By: #### H EMOGC ####[facility] (DEFAULT)[address] [place] [address] Mean Cell Hgb 28.0 pg Normal 26.1-33.3 [facility] Comment on above: Performed By: #### H EMOGC ####[facility] (DEFAULT)[address] [facility] [address] Mean Cell Hgb Conc 32.2 g/dL Normal 31.9-36.5 [facility] Comment on above: Performed By: #### H EMO ####[facility] (DEFAULT)[address] [place] [address] Platelet mean volume (Bld) [Entitic vol] 10.2 fL Normal 8.7-12.3 [facility] Comment on above: Performed By: #### H EMOGC ####[facility] (DEFAULT)[address] [place] [address] Platelets (Bld) [#/Vol] 157 10*3/uL Normal 146-337 [facility] Comment on above: Performed By: #### H EMO ####[facility] (DEFAULT)[address] [place] [address] RBC (Bld) [#/Vol] 4.53 10*6/uL Normal 4.38-5.83 [facility] Comment on above: Performed By: #### H EMO ####[facility] (DEFAULT)[address] [place] [address] RBC Distribution 14.0 % Normal 10.9-14.3 [facility] Comment on above: Performed By: #### H EMOGC ####[facility] (DEFAULT)[address] [place] [address] WBC (Bld) [#/Vol] 3.42 10*3/uL Low 3.73-10.10 [facility] Comment on above: Performed By: #### H EMOGC ####[facility] (DEFAULT)[address] [place] [address] Erythrocyte distribution width (RBC) [Ratio] 14.0 % 10.9 - 14.3 % [facility] Hematocrit (Bld) [Volume fraction] 39.4 % Low 39.6 - 48.8 % [facility] Hemoglobin (Bld) [Mass/Vol] 12.7 g/dL Low 13.4 - 16.8 g/dL [facility] Interpretation and review of laboratory results Abnormal [facility] MCH (RBC) [Entitic mass] 28.0 pg 26.1 - 33.3 pg [facility] MCHC (RBC) [Mass/Vol] 32.2 g/dL 31.9 - 36.5 g/dL [facility] MCV (RBC) [Entitic vol] 87.0 fL 79.0 - 94.5 fL [facility] Platelet mean volume (Bld) [Entitic vol] 10.2 fL 8.7 - 12.3 fL [facility] Platelets (Bld) [#/Vol] 157 10*3/uL 146 - 337 K/uL [facility] RBC (Bld) [#/Vol] 4.53 10*6/uL [facility] WBC (Bld) [#/Vol] 3.42 10*3/uL Low 3.73 - 10. 10 K/uL [facility] CHEM 7 (LYTES,BUN,CREA,GLUC) on 01-21-2024 Anion gap [Moles/Vol] 12 mmol/L Normal 7-17 [facility] Comment on above: Performed By: #### Rod BLOOM CHM7 ####[facility] (DEFAULT)[address] [place] [address] Chloride [Moles/Vol] 107 mmol/L Normal 98-108 [facility] Comment on above: Performed By: #### TJ RAMÍREZ7 ####[facility] (DEFAULT)[address] [place] [address] CO2 [Moles/Vol] 26 mmol/L Normal 21-31 [facility] Comment on above: Performed By: #### Rod BLOOM CHM7 ####[facility] (DEFAULT)[address] [place] [address] Creatinine [Mass/Vol] 1.11 mg/dL Normal 0.70-1.30 [facility] Comment on above: Performed By: #### TJ RAMÍREZ7 ####[facility] (DEFAULT)[address] [place] [address] GFR/1.73 sq M.predicted among non-blacks MDRD (S/P/Bld) [Vol rate/Area] 80 mL/min/{1.73_m2} Normal >=60 [facility] Comment on above: Result Comment: Repo rted eGFR is based on the CKD-EPI 2020 equation using creatinine, age, and sex. Performed By: #### TJ RAMÍREZ7 ####[facility] (DEFAULT)[address] [facility] [address] Glucose [Mass/Vol] 93 mg/dL Normal 70-99 [facility] Comment on above: Performed By: #### TJ RAMÍREZ7 ####[facility] (DEFAULT)[address] [place] [address] Osmolality [Osmolality] 295 mosm/kg Normal 278-305 [facility] Comment on above: Performed By: #### TJ RAMÍREZ7 ####[facility] (DEFAULT)[address] [place] [address] Potassium [Moles/Vol] 3.9 mmol/L Normal 3.5-5.0 [facility] Comment on above: Performed By: #### Rod BLOOM CHM7 ####[facility] (DEFAULT)[address] [place] [address] Sodium [Moles/Vol] 141 mmol/L Normal 135-145 [facility] Comment on above: Performed By: #### Rod BLOOM CHM7 ####[facility] (DEFAULT)[address] [place] [address] Urea nitrogen [Mass/Vol] 15 mg/dL Normal 7-25 [facility] Comment on above: Performed By: #### Rod BLOOM CHM7 ####[facility] (DEFAULT)[address] [place] [address] Urea nitrogen/Creatinine [Mass ratio] 14 mg/mg Normal [facility] Comment on above: Performed By: #### M [facility] ####[facility] (DEFAULT)[address] [place] [address] Anion gap [Moles/Vol] 12 mmol/L 7 - 17 mmol/L [facility] Chloride [Moles/Vol] 107 mmol/L 98 - 10 8 mmol/L [facility] CO2 [Moles/Vol] 26 mmol/L 21 - 31 mmol/L [facility] Creatinine [Mass/Vol] 1.11 mg/dL 0.70 - 1.30 mg/dL [facility] eGFR, CKD-EPI, Male 80 - PINF [facility] Comment on above: Reported eGFR is bas ed on the CKD-EPI 2020 equation using creatinine, age, and sex. Glucose [Mass/Vol] 93 mg/dL 70 - 99 mg/dL [facility] Osmolality Calc [Osmolality] 295 [facility] Potassium [Moles/Vol] 3.9 mmol/L 3.5 - 5.0 mmol/L [facility] Sodium [Moles/Vol] 141 mmol/L 135 - 145 mmol/L [facility] Urea nitrogen [Mass/Vol] 15 mg/dL 7 - 25 mg/dL [facility] Urea nitrogen/Creatinine [Mass ratio] 14 mg/mg [facility] Cardiac catheterization stud yOrdered By: Kelvin Donohue on 01-21-2024 Body surface area Derived from formula 2.08 m2 [facility] Work Phone: [facility] Work Phone: Cardiac catheterization stud yon [...] with fistula occlusion Kelvin Donohue MD, MPH [employer] Test Engineer of Internal Medicine. Section of Advanced Heart Failure and Transplantation Division of Cardiovascular Diseases [email or web address] INVASIVE CARDIOVASCULAR PROC EDUREon 01-21-2024 INVASIVE CARDIOVASCULAR PROCEDURE Normal [facility] MAGNESIUMon 01-21-2024 Magnesium [Mass/Vol] 1.5 mg/dL Low 1.6-2.6 [facility] Comment on above: Performed By: #### M [facility] ####[facility] (DEFAULT)[address] [place] [address] Interpretation and review of laboratory results Abnormal [facility] Magnesium [Mass/Vol] 1.5 mg/dL Low 1.6 - 2 .6 mg/dL [facility] No Panel Informationon 01-21 [facility] TACROLIMUS LEVEL, TROUGH (UT E DRUG LEVEL)on 01-21-2024 Interpretation and review of laboratory results Normal [facility] Tacrolimus (Bld) [Mass/Vol] 7.2 ng/mL Bone Marrow Transplant: 4.0-12.0, Therapeutic: 5.0-15.0 [facility] Method performed is a chemiluminescent microparticle immunoasssay on the [employer] i2000. The range is based on experience at [facility] and users should be aware that target concentrations vary widely depending on concomitant therapy, time post-transplant, and desired degree of immunosuppression. [facility] Tacrolimus, Trough 7.2 ng/mL Normal Bone Susana ow Transplant: 4.0-12.0, Therapeutic: 5.0-15.0 [facility] Comment on above: Order Comment: Plejoan e draw at specified interval PRIOR to dose. Do not hold dose to wait for level. Specimens batched twice per day, (M-F) and once per day weekendsMethod performed is a chemiluminescent microparticle immunoasssay on the [employer] i2000.The range is based on experience at [facility] and users should be aware that target concentrations vary widely depending on concomitant therapy, time post-transplant, and desired degree of immunosuppression. Performed By: #### T ACRO ####[facility] (DEFAULT)[address] [place] [address] CBC,PLATELETSon 01-20-2024 Hematocrit (Bld) [Volume fraction] 38.9 % Low 39.6-48.8 [facility] Comment on above: Performed By: #### H EMOGC ####[facility] (DEFAULT)[address] [place] [address], [place] [address] Hemoglobin (Bld) [Mass/Vol] 12.5 g/dL Low 13.4-16.8 [facility] Comment on above: Performed By: #### H EMOGC ####[facility] (DEFAULT)[address] [place] [address] MCV (RBC) [Entitic vol] 87.2 fL Normal 79.0-94.5 [facility] Comment on above: Performed By: #### H EMOGC ####[facility] (DEFAULT)[address] [place] [address] Mean Cell Hgb 28.0 pg Normal 26.1-33.3 [facility] Comment on above: Performed By: #### H EMOGC ####[facility] (DEFAULT)[address] [place] [address] Mean Cell Hgb Conc 32.1 g/dL Normal 31.9-36.5 [facility] Comment on above: Performed By: #### H EMOGC ####[facility] (DEFAULT)[address] [facility] [address] Platelet mean volume (Bld) [Entitic vol] 10.2 fL Normal 8.7-12.3 [facility] Comment on above: Performed By: #### H EMOGC ####[facility] (DEFAULT)[address] [place] [address] Platelets (Bld) [#/Vol] 166 10*3/uL Normal 146-337 [facility] Comment on above: Performed By: #### H EMOGC ####[facility] (DEFAULT)[address] [place] [address] RBC (Bld) [#/Vol] 4.46 10*6/uL Normal 4.38-5.83 [facility] Comment on above: Performed By: #### H EMO ####[facility] (DEFAULT)[address] [place] [address] RBC Distribution 13.8 % Normal 10.9-14.3 [facility] Comment on above: Performed By: #### H EMOGC ####[facility] (DEFAULT)[address] [place] [address] WBC (Bld) [#/Vol] 3.79 10*3/uL Normal 3.73-10.10 [facility] Comment on above: Performed By: #### H EMOGC ####[facility] (DEFAULT)[address] [place] [address] Erythrocyte distribution width (RBC) [Ratio] 13.8 % 10.9 - 14.3 % [facility] Hematocrit (Bld) [Volume fraction] 38.9 % Low 39.6 - 48.8 % [facility] Hemoglobin (Bld) [Mass/Vol] 12.5 g/dL Low 13.4 - 16.8 g/dL [facility] Interpretation and review of laboratory results Abnormal [facility] MCH (RBC) [Entitic mass] 28.0 pg 26.1 - 33.3 pg [facility] MCHC (RBC) [Mass/Vol] 32.1 g/dL 31.9 - 36.5 g/dL [facility] MCV (RBC) [Entitic vol] 87.2 fL 79.0 - 94.5 fL [facility] Platelet mean volume (Bld) [Entitic vol] 10.2 fL 8.7 - 12.3 fL [facility] Platelets (Bld) [#/Vol] 166 10*3/uL 146 - 337 K/uL [facility] RBC (Bld) [#/Vol] 4.46 10*6/uL [facility] WBC (Bld) [#/Vol] 3.79 10*3/uL 3.73 - 10. 10 K/uL [facility] CHEM 7 (LYTES,BUN,CREA,GLUC) on 01-20-2024 Anion gap [Moles/Vol] 12 mmol/L Normal 7-17 [facility] Comment on above: Performed By: #### NATHANIEL RAMÍREZ, HFP ####[facility] (DEFAULT)[address] [place] [address] Chloride [Moles/Vol] 105 mmol/L Normal 98-108 [facility] Comment on above: Performed By: #### NATHANIEL RAMÍREZ, HFP ####[facility] (DEFAULT)[address] [place] [address] CO2 [Moles/Vol] 28 mmol/L Normal 21-31 [facility] Comment on above: Performed By: #### NATHANIEL RAMÍREZ, HFP ####[facility] (DEFAULT)[address] [place] [address] Creatinine [Mass/Vol] 1.12 mg/dL Normal 0.70-1.30 [facility] Comment on above: Performed By: #### NATHANIEL RAMÍREZ, HFP ####[facility] (DEFAULT)[address] [place] [address] GFR/1.73 sq M.predicted among non-blacks MDRD (S/P/Bld) [Vol rate/Area] 79 mL/min/{1.73_m2} Normal >=60 [facility] Comment on above: Result Comment: Repo rted eGFR is based on the CKD-EPI 2020 equation using creatinine, age, and sex. Performed By: #### NATHANIEL RAMÍREZ, HFP ####[facility] (DEFAULT)[address] [place] [address] Glucose [Mass/Vol] 88 mg/dL Normal 70-99 [facility] Comment on above: Performed By: #### NATHANIEL RAMÍREZ, HFP ####[facility] (DEFAULT)[address] [place] [address] Osmolality [Osmolality] 294 mosm/kg Normal 278-305 [facility] Comment on above: Performed By: #### NATHANIEL RAMÍREZ, HFP ####[facility] (DEFAULT)[address] [place] [address] Potassium [Moles/Vol] 3.8 mmol/L Normal 3.5-5.0 [facility] Comment on above: Performed By: #### NATHANIEL RAMÍREZ, HFP ####[facility] (DEFAULT)[address] [place] [address] Sodium [Moles/Vol] 141 mmol/L Normal 135-145 [facility] Comment on above: Performed By: #### Rod BLOOM CHM7, HFP ####[facility] (DEFAULT)[address] [place] [address] Urea nitrogen [Mass/Vol] 15 mg/dL Normal 7-25 [facility] Comment on above: Performed By: #### Rod BLOOM CHM7, HFP ####[facility] (DEFAULT)[address] [place] [address] Urea nitrogen/Creatinine [Mass ratio] 13 mg/mg Normal [facility] Comment on above: Performed By: #### M , M7, [facility] ####[facility] (DEFAULT)[address] [place] [address] Anion gap [Moles/Vol] 12 mmol/L 7 - 17 mmol/L [facility] Chloride [Moles/Vol] 105 mmol/L 98 - 10 8 mmol/L [facility] CO2 [Moles/Vol] 28 mmol/L 21 - 31 mmol/L [facility] Creatinine [Mass/Vol] 1.12 mg/dL 0.70 - 1.30 mg/dL [facility] eGFR, CKD-EPI, Male 80 - PINF [facility] Comment on above: Reported eGFR is bas ed on the CKD-EPI 2020 equation using creatinine, age, and sex. Glucose [Mass/Vol] 88 mg/dL 70 - 99 mg/dL [facility] Osmolality Calc [Osmolality] 294 [facility] Potassium [Moles/Vol] 3.8 mmol/L 3.5 - 5.0 mmol/L [facility] Sodium [Moles/Vol] 141 mmol/L 135 - 145 mmol/L [facility] Urea nitrogen [Mass/Vol] 15 mg/dL 7 - 25 mg/dL [facility] Urea nitrogen/Creatinine [Mass ratio] 13 mg/mg [facility] Cardiac catheterization stud yon 01-20-2024 [facility] Radiology Study observation (narrative) [facility] Radiology Study observation (narrative) [facility] EBV BY PCR, QUANTITATIVE,BLO ODOrdered By: Charlotte Jensen on 01-20-2024 EBV DNA ESTELITA+probe (Unsp spec) [#/Vol] NINF [facility] Interpretation and review of laboratory results Normal [facility] This test was perfor med using a real time PCR assay. The dynamic range for this assay is 1000-5,000,000 IU/mL. A result <1000 IU/mL does not rule out the presence of EBV DNA in quantities below the sensitivity of this assay. This test was developed and its performance characteristics determined by The [facility] at [facility]. It has not been cleared or approved by the FDA. The laboratory is regulated under CLIA as qualified to perform high-complexity testing. This test is used for clinical purposes. It should not be regarded as investigational or for research. [facility] HEPATIC FUNCTION PANELon Albumin [Mass/Vol] 3.7 g/dL Normal 3.5-5.0 [facility] Comment on above: Performed By: #### TJ RAMÍREZ7, HFP ####[facility] (DEFAULT)[address] [place] [address] ALP [Catalytic activity/Vol] 73 U/L Normal 32-126 [facility] Comment on above: Performed By: #### TJ RAMÍREZ7, HFP ####[facility] (DEFAULT)[address] [place] [address] ALT [Catalytic activity/Vol] 12 U/L Normal 10-52 [facility] Comment on above: Performed By: #### NATHANIEL RAMÍREZ, HFP ####[facility] (DEFAULT)[address] [place] [address] AST [Catalytic activity/Vol] 19 U/L Normal 10-39 [facility] Comment on above: Performed By: #### Rod BLOOM CHM7, HFP ####[facility] (DEFAULT)[address] [place] [address] Bilirubin [Mass/Vol] 2.1 mg/dL High <1.5 [facility] Comment on above: Performed By: #### Rod BLOOM CHM7, HFP ####[facility] (DEFAULT)[address] [place] [address] Bilirubin.indirect [Mass/Vol] 0.5 mg/dL High <0.3 [facility] Comment on above: Performed By: #### Rod BLOOM CHM7, HFP ####[facility] (DEFAULT)[address] [place] [address] Protein [Mass/Vol] 6.1 g/dL Low 6.4-8.3 [facility] Comment on above: Performed By: #### M TJ BLOOM7, [facility] ####[facility] (DEFAULT)[address] [facility] [address] Albumin [Mass/Vol] 3.7 g/dL 3.5 - 5.0 g/dL [facility] ALP [Catalytic activity/Vol] 73 U/L 32 - 126 U/L [facility] ALT [Catalytic activity/Vol] 12 U/L 10 - 52 U/L [facility] AST [Catalytic activity/Vol] 19 U/L 10 - 39 U/L [facility] Bilirubin [Mass/Vol] 2.1 mg/dL High NINF - 1.5 mg/dL [facility] Bilirubin.direct [Mass/Vol] 0.5 mg/dL High NINF - 0.3 mg/dL [facility] Interpretation and review of laboratory results Abnormal [facility] Protein [Mass/Vol] 6.1 g/dL Low 6.4 - 8.3 g/dL [facility] ITRACONAZOLE LEVELon 01-20- 024 Hydroxyitraconazole 7.6 mcg/mL Normal [facility] Comment on above: Order Comment: Dilan gregory draw level at specified interval PRIOR to dose. Result Comment: ---- REFERENCE VALUE No therapeutic range established; activity and serumconcentration are similar to parent drug. ADDITIONAL INFORMATION This test was developed and its performance characteristicsdetermined by [facility] in a manner consistent with CLIArequirements. This test has not been cleared or approved bythe U.S. Food and Drug Administration.Test Performed by:[facility] [place] [id number] Director: Rosendo Bose M.D. Ph.D.; CLIA# [id number] Performed By: #### Y ITCON ####[facility] (DEFAULT)[address] [place] [address] Itraconazole 6.0 mcg/mL Normal [facility] Comment on above: Order Comment: Pleas e draw level at specified interval PRIOR to dose. Result Comment: ---- REFERENCE VALUE-------------------------->0.5 (localized infection), >1.0 (systemic infection) Performed By: #### Y ITCON ####[facility] (DEFAULT)[address] [place] [address] MAGNESIUMon 01-20-2024 Magnesium [Mass/Vol] 1.6 mg/dL Normal 1.6-2.6 [facility] Comment on above: Performed By: #### M MERLE, CHM7, HFP ####[facility] (DEFAULT)[address] [place] [address] Interpretation and review of laboratory results Normal [facility] Magnesium [Mass/Vol] 1.6 mg/dL 1.6 - 2 .6 mg/dL [facility] No Panel Informationon 01-20 [facility] POCT CO-OXIMETRYon Hemoglobin (Bld) [Mass/Vol] 12.8 g/dL Low 13.4 - 16.8 g/dL [facility] Interpretation and review of laboratory results Abnormal [facility] Oxyhemoglobin 69 % Low 94 - 98 % [facility] Ordering physician notified. Test performed at address of the patient encounter. [facility] Hemoglobin (Bld) [Mass/Vol] 13.3 g/dL Low 13.4 - 16.8 g/dL [facility] Interpretation and review of laboratory results Abnormal [facility] Oxyhemoglobin 69 % Low 94 - 98 % [facility] Ordering physician notified. Test performed at address of the patient encounter. [facility] PT,INR,PTTon 01-20-2024 aPTT Coag (Bld) [Time] 30.6 s Normal 24.0-34.3 [facility] Comment on above: Performed By: #### P TPTT ####[facility] (DEFAULT)[address] [place] [address] INR Coag (PPP) [Relative time] 1.2 {INR} High 0.9-1.1 [facility] Comment on above: Performed By: #### P TPTT ####[facility] (DEFAULT)[address] [place] [address] PT Coag (PPP) [Time] 15.5 s High 11.9-14.2 [facility] Comment on above: Performed By: #### P TPTT ####[facility] (DEFAULT)[address] [place] [address] aPTT Coag (PPP) [Time] 30.6 s [facility] INR Coag (Bld) [Relative time] 1.2 {INR} High 0.9 - 1.1 [facility] Interpretation and review of laboratory results Abnormal [facility] PT Coag (PPP) [Time] 15.5 s High [facility] TACROLIMUS LEVEL, TROUGH (UT E DRUG LEVEL)Ordered By: Yanira Marcum on 01-20-2024 Interpretation and review of laboratory results Normal [facility] Tacrolimus (Bld) [Mass/Vol] 7.7 ng/mL Bone Marrow Transplant: 4.0-12.0, Therapeutic: 5.0-15.0 [facility] Method performed is a chemiluminescent microparticle immunoasssay on the [employer] i2000. The range is based on experience at [facility] and users should be aware that target concentrations vary widely depending on concomitant therapy, time post-transplant, and desired degree of immunosuppression. [facility] TACROLIMUS LEVEL, TROUGH (UT E DRUG LEVEL)on 01-20-2024 Tacrolimus, Trough 7.7 ng/mL Normal Bone Susana ow Transplant: 4.0-12.0, Therapeutic: 5.0-15.0 [facility] Comment on above: Order Comment: Pleas e draw at specified interval PRIOR to dose. Do not hold dose to wait for level. Specimens batched twice per day, (M-F) and once per day weekendsMethod performed is a chemiluminescent microparticle immunoasssay on the [employer] i2000.The range is based on experience at [facility] and users should be aware that target concentrations vary widely depending on concomitant therapy, time post-transplant, and desired degree of immunosuppression. Performed By: #### T ACRO ####[facility] (DEFAULT)[address] [place] [address] CBC,PLATELETSon 01-19-2024 Hematocrit (Bld) [Volume fraction] 37.5 % Low 39.6-48.8 [facility] Comment on above: Performed By: #### [facility] ####[facility] (DEFAULT)[address] [place] [address] Hemoglobin (Bld) [Mass/Vol] 12.1 g/dL Low 13.4-16.8 [facility] Comment on above: Performed By: #### H EMO ####[facility] (DEFAULT)[address] [place] [address] MCV (RBC) [Entitic vol] 87.8 fL Normal 79.0-94.5 [facility] Comment on above: Performed By: #### [facility] ####[facility] (DEFAULT)[address] [place] [address] Mean Cell Hgb 28.3 pg Normal 26.1-33.3 [facility] Comment on above: Performed By: #### H EMO ####[facility] (DEFAULT)[address] [place] [address] Mean Cell Hgb Conc 32.3 g/dL Normal 31.9-36.5 [facility] Comment on above: Performed By: #### H EMOGC ####[facility] (DEFAULT)[address] [place] [address] Platelet mean volume (Bld) [Entitic vol] 10.4 fL Normal 8.7-12.3 [facility] Comment on above: Performed By: #### H EMOGC ####[facility] (DEFAULT)[address] [place] [address] Platelets (Bld) [#/Vol] 163 10*3/uL Normal 146-337 [facility] Comment on above: Performed By: #### H EMO ####[facility] (DEFAULT)[address] [facility] [address] RBC (Bld) [#/Vol] 4.27 10*6/uL Low 4.38-5.83 [facility] Comment on above: Performed By: #### H EMO ####[facility] (DEFAULT)[address] [facility] [address] RBC Distribution 13.9 % Normal 10.9-14.3 [facility] Comment on above: Performed By: #### H EMOGC ####[facility] (DEFAULT)[address] [place] [address] WBC (Bld) [#/Vol] 3.69 10*3/uL Low 3.73-10.10 [facility] Comment on above: Performed By: #### H EMOGC ####[facility] (DEFAULT)[address] [facility] [address] Erythrocyte distribution width (RBC) [Ratio] 13.9 % 10.9 - 14.3 % [facility] Hematocrit (Bld) [Volume fraction] 37.5 % Low 39.6 - 48.8 % [facility] Hemoglobin (Bld) [Mass/Vol] 12.1 g/dL Low 13.4 - 16.8 g/dL [facility] Interpretation and review of laboratory results Abnormal [facility] MCH (RBC) [Entitic mass] 28.3 pg 26.1 - 33.3 pg [facility] MCHC (RBC) [Mass/Vol] 32.3 g/dL 31.9 - 36.5 g/dL [facility] MCV (RBC) [Entitic vol] 87.8 fL 79.0 - 94.5 fL [facility] Platelet mean volume (Bld) [Entitic vol] 10.4 fL 8.7 - 12.3 fL [facility] Platelets (Bld) [#/Vol] 163 10*3/uL 146 - 337 K/uL [facility] RBC (Bld) [#/Vol] 4.27 10*6/uL Low [facility] WBC (Bld) [#/Vol] 3.69 10*3/uL Low 3.73 - 10. 10 K/uL [facility] CHEM 7 (LYTES,BUN,CREA,GLUC) on 01-19-2024 Anion gap [Moles/Vol] 14 mmol/L Normal 7-17 [facility] Comment on above: Performed By: #### NATHANIEL RAMÍREZ ####[facility] (DEFAULT)[address] [place] [address] Chloride [Moles/Vol] 106 mmol/L Normal 98-108 [facility] Comment on above: Performed By: #### TJ RAMÍREZ7 ####[facility] (DEFAULT)[address] [place] [address] CO2 [Moles/Vol] 24 mmol/L Normal 21-31 [facility] Comment on above: Performed By: #### TJ RAMÍREZ7 ####[facility] (DEFAULT)[address] [place] [address] Creatinine [Mass/Vol] 1.13 mg/dL Normal 0.70-1.30 [facility] Comment on above: Performed By: #### NATHANIEL RAMÍREZ ####[facility] (DEFAULT)[address] [place] [address] GFR/1.73 sq M.predicted among non-blacks MDRD (S/P/Bld) [Vol rate/Area] 78 mL/min/{1.73_m2} Normal >=60 [facility] Comment on above: Result Comment: Repo rted eGFR is based on the CKD-EPI 2020 equation using creatinine, age, and sex. Performed By: #### TJ RAMÍREZ7 ####[facility] (DEFAULT)[address] [place] [address] Glucose [Mass/Vol] 86 mg/dL Normal 70-99 [facility] Comment on above: Performed By: #### NATHANIEL RAMÍREZ ####[facility] (DEFAULT)[address] [facility] [address] Osmolality [Osmolality] 293 mosm/kg Normal 278-305 [facility] Comment on above: Performed By: #### NATHANIEL RAMÍREZ ####[facility] (DEFAULT)[address] [place] [address] Potassium [Moles/Vol] 3.8 mmol/L Normal 3.5-5.0 [facility] Comment on above: Performed By: #### NATHANIEL RAMÍREZ ####[facility] (DEFAULT)[address] [place] [address] Sodium [Moles/Vol] 140 mmol/L Normal 135-145 [facility] Comment on above: Performed By: #### TJ RAMÍREZ7 ####[facility] (DEFAULT)[address] [facility] [address] Urea nitrogen [Mass/Vol] 16 mg/dL Normal 7-25 [facility] Comment on above: Performed By: #### Rod BLOOM CHM7 ####[facility] (DEFAULT)[address] [place] [address] Urea nitrogen/Creatinine [Mass ratio] 14 mg/mg Normal [facility] Comment on above: Performed By: #### M MERLE CHM7 ####[facility] (DEFAULT)[address] [place] [address] Anion gap [Moles/Vol] 14 mmol/L 7 - 17 mmol/L [facility] Chloride [Moles/Vol] 106 mmol/L 98 - 10 8 [facility]/L [facility] CO2 [Moles/Vol] 24 mmol/L 21 - 31 mmol/L [facility] Creatinine [Mass/Vol] 1.13 mg/dL 0.70 - 1.30 mg/dL [facility] eGFR, CKD-EPI, Male 79 - PINF [facility] Comment on above: Reported eGFR is bas ed on the CKD-EPI 2020 equation using creatinine, age, and sex. Glucose [Mass/Vol] 86 mg/dL 70 - 99 mg/dL [facility] Osmolality Calc [Osmolality] 293 [facility] Potassium [Moles/Vol] 3.8 mmol/L 3.5 - 5.0 mmol/L [facility] Sodium [Moles/Vol] 140 mmol/L 135 - 145 mmol/L [facility] Urea nitrogen [Mass/Vol] 16 mg/dL 7 - 25 mg/dL [facility] Urea nitrogen/Creatinine [Mass ratio] 14 mg/mg [facility] EBV BY PCR, QUANTITATIVE,BLO ODon 01-19-2024 Ebv By Pcr, Quant, Blood <1000 Normal <1000 [facility] Comment on above: Order [...] by The [facility] at [facility]. It has not been cleared or approved by the FDA. The laboratory is regulated under CLIA as qualified to perform high-complexity testing. This test is used for clinical purposes. It should not be regarded as investigational or for research. Performed By: #### E BVPCR ####[facility] (DEFAULT)[address] [address] HISTOPLASMA AND BLASTOMYCES ANTIGEN, ENZYME IMMUNOASSAY, SERMon 01-19-2024 Histoplasma/Blastomy antonia Ag Result Not detected Not Detected [facility] Comment on above: No antigen from Hist oplasma or Blastomyces detected. False negative results may occur depending on extent of disease, and/or site of infection. Repeat testing on a new specimen if clinically indicated. Histoplasma/Blastomy antonia Ag Value Not detected ng/mL [facility] Comment on above: ADDITIONAL INFORMATION This test was developed and its performance characteristics determined by [facility] in a manner consistent with CLIA requirements. This test has not been cleared or approved by the U.S. Food and Drug Administration. Test Performed by: [facility] [id number] [place] [address] Plant Security Guard: Rosendo Bose M.D. Ph.D.; CLIA# [id number] [facility] MAGNESIUMon 01-19-2024 Magnesium [Mass/Vol] 1.8 mg/dL Normal 1.6-2.6 [facility] Comment on above: Performed By: #### M , CHM7 ####[facility] (DEFAULT)[address] [place] [address] Interpretation and review of laboratory results Normal [facility] Magnesium [Mass/Vol] 1.8 mg/dL 1.6 - 2 .6 mg/dL [facility] No Panel Informationon 01-19 [facility] TACROLIMUS LEVEL, TROUGH (UT E DRUG LEVEL)Ordered By: Raymundo Mehta on 01-19-2024 Interpretation and review of laboratory results Normal [facility] Tacrolimus (Bld) [Mass/Vol] 6.8 ng/mL Bone Marrow Transplant: 4.0-12.0, Therapeutic: 5.0-15.0 [facility] Method performed is a chemiluminescent microparticle immunoasssay on the [employer] i2000. The range is based on experience at [facility] and users should be aware that target concentrations vary widely depending on concomitant therapy, time post-transplant, and desired degree of immunosuppression. [facility] TACROLIMUS LEVEL, TROUGH (UT E DRUG LEVEL)on 01-19-2024 Tacrolimus, Trough 6.8 ng/mL Normal Bone Susana ow Transplant: 4.0-12.0, Therapeutic: 5.0-15.0 [facility] Comment on above: Order Comment: Pleas e draw at specified interval PRIOR to dose. Do not hold dose to wait for level. Specimens batched twice per day, (M-F) and once per day weekendsMethod performed is a chemiluminescent microparticle immunoasssay on the [employer] i2000.The range is based on experience at [facility] and users should be aware that target concentrations vary widely depending on concomitant therapy, time post-transplant, and desired degree of immunosuppression. Performed By: #### T ACRO ####[facility] (DEFAULT)[address] [place] [address] US AV fistulaOrdered By: Diana Reyes on 01-19-2024 [facility] Work Phone: US AV fistulaon 01-19-2024 Radiology Study observation (narrative) [facility] AFP TUMOR MARKEROrdered By: Francisca Alaniz on 01-18-2024 AFP.tumor marker [Mass/Vol] ng/mL NINF - 8.1 ng/mL [facility] Comment on above: This test was perfor med on the [employer] Immunoassay platform by Lot78 which is a two-site sandwich chemiluminescent immunoassay. It is important to note that assays using different manufacturers and/or methods may not be comparable. Interpretation and review of laboratory results Normal [facility] CBC,PLATELETSon 01-18-2024 Hematocrit (Bld) [Volume fraction] 38.4 % Low 39.6-48.8 [facility] Comment on above: Performed By: #### H EMOGC ####[facility] (DEFAULT)[address] [place] [address] Hemoglobin (Bld) [Mass/Vol] 12.1 g/dL Low 13.4-16.8 [facility] Comment on above: Performed By: #### H EMOGC ####[facility] (DEFAULT)[address] [place] [address] MCV (RBC) [Entitic vol] 88.3 fL Normal 79.0-94.5 [facility] Comment on above: Performed By: #### H EMOGC ####[facility] (DEFAULT)[address] [place] [address] Mean Cell Hgb 27.8 pg Normal 26.1-33.3 [facility] Comment on above: Performed By: #### H EMOGC ####[facility] (DEFAULT)[address] [place] [address] Mean Cell Hgb Conc 31.5 g/dL Low 31.9-36.5 [facility] Comment on above: Performed By: #### H EMOGC ####[facility] (DEFAULT)[address] [place] [address] Platelet mean volume (Bld) [Entitic vol] 10.4 fL Normal 8.7-12.3 [facility] Comment on above: Performed By: #### H EMOGC ####[facility] (DEFAULT)[address] [place] [address] Platelets (Bld) [#/Vol] 183 10*3/uL Normal 146-337 [facility] Comment on above: Performed By: #### H EMOGC ####[facility] (DEFAULT)[address] [place] [address] RBC (Bld) [#/Vol] 4.35 10*6/uL Low 4.38-5.83 [facility] Comment on above: Performed By: #### [facility] ####[facility] (DEFAULT)[address] [place] [address] RBC Distribution 13.9 % Normal 10.9-14.3 [facility] Comment on above: Performed By: #### [facility] ####[facility] (DEFAULT)[address] [place] [address] WBC (Bld) [#/Vol] 3.66 10*3/uL Low 3.73-10.10 [facility] Comment on above: Performed By: #### [facility] ####[facility] (DEFAULT)[address] [place] [address] Erythrocyte distribution width (RBC) [Ratio] 13.9 % 10.9 - 14.3 % [facility] Hematocrit (Bld) [Volume fraction] 38.4 % Low 39.6 - 48.8 % [facility] Hemoglobin (Bld) [Mass/Vol] 12.1 g/dL Low 13.4 - 16.8 g/dL [facility] Interpretation and review of laboratory results Abnormal [facility] MCH (RBC) [Entitic mass] 27.8 pg 26.1 - 33.3 pg [facility] MCHC (RBC) [Mass/Vol] 31.5 g/dL Low 31.9 - 36.5 g/dL [facility] MCV (RBC) [Entitic vol] 88.3 fL 79.0 - 94.5 fL [facility] Platelet mean volume (Bld) [Entitic vol] 10.4 fL 8.7 - 12.3 fL [facility] Platelets (Bld) [#/Vol] 183 10*3/uL 146 - 337 K/uL [facility] RBC (Bld) [#/Vol] 4.35 10*6/uL Low [facility] WBC (Bld) [#/Vol] 3.66 10*3/uL Low 3.73 - 10. 10 K/uL [facility] CHEM 7 (LYTES,BUN,CREA,GLUC) on 01-18-2024 Anion gap [Moles/Vol] 11 mmol/L Normal 7-17 [facility] Comment on above: Performed By: #### M GO, CHM7, HFP, TSHQR ####[facility] (DEFAULT)[address] [facility] [place] [address] Chloride [Moles/Vol] 108 mmol/L Normal 98-108 [facility] Comment on above: Performed By: #### M GO, CHM7, HFP, TSHQR ####[facility] (DEFAULT)[address] [place] [address] CO2 [Moles/Vol] 26 mmol/L Normal 21-31 [facility] Comment on above: Performed By: #### M GO, CHM7, HFP, TSHQR ####[facility] (DEFAULT)[address] [place] [address] Creatinine [Mass/Vol] 1.00 mg/dL Normal 0.70-1.30 [facility] Comment on above: Performed By: #### M GO, CHM7, HFP, TSHQR ####[facility] (DEFAULT)[address] [place] [address] eGFR, CKD-EPI, Male > Normal >=60 [facility] Comment on above: Result Comment: Repo rted eGFR is based on the CKD-EPI 2020 equation using creatinine, age, and sex. Performed By: #### M GO, CHM7, HFP, TSHQR ####[facility] (DEFAULT)[address] [place] [address] Glucose [Mass/Vol] 89 mg/dL Normal 70-99 [facility] Comment on above: Performed By: #### M GO, CHM7, HFP, TSHQR ####[facility] (DEFAULT)[address] [place] [address] Osmolality [Osmolality] 295 mosm/kg Normal 278-305 [facility] Comment on above: Performed By: #### M GO, CHM7, HFP, TSHQR ####[facility] (DEFAULT)[address] [facility] [address] Potassium [Moles/Vol] 3.9 mmol/L Normal 3.5-5.0 [facility] Comment on above: Performed By: #### M GO, CHM7, HFP, TSHQR ####[facility] (DEFAULT)[address] [facility] [address] Sodium [Moles/Vol] 141 mmol/L Normal 135-145 [facility] Comment on above: Performed By: #### M GO, CHM7, HFP, TSHQR ####[facility] (DEFAULT)[address] [place] [address] Urea nitrogen [Mass/Vol] 16 mg/dL Normal 7-25 [facility] Comment on above: Performed By: #### M GO, CHM7, HFP, TSHQR ####[facility] (DEFAULT)[address] [place] [address] Urea nitrogen/Creatinine [Mass ratio] 16 mg/mg Normal [facility] Comment on above: Performed By: #### M GO, CHM7, HFP, TSHQR ####[facility] (DEFAULT)[address] [place] [address] Anion gap [Moles/Vol] 11 mmol/L 7 - 17 mmol/L [facility] Chloride [Moles/Vol] 108 mmol/L 98 - 10 8 mmol/L [facility] CO2 [Moles/Vol] 26 mmol/L 21 - 31 mmol/L [facility] Creatinine [Mass/Vol] 1.00 mg/dL 0.70 - 1.30 mg/dL [facility] eGFR, CKD-EPI, Male - PINF [facility] Comment on above: Reported eGFR is bas ed on the CKD-EPI 2020 equation using creatinine, age, and sex. Glucose [Mass/Vol] 89 mg/dL 70 - 99 mg/dL [facility] Osmolality Calc [Osmolality] 295 [facility] Potassium [Moles/Vol] 3.9 mmol/L 3.5 - 5.0 mmol/L [facility] Sodium [Moles/Vol] 141 mmol/L 135 - 145 mmol/L [facility] Urea nitrogen [Mass/Vol] 16 mg/dL 7 - 25 mg/dL [facility] Urea nitrogen/Creatinine [Mass ratio] 16 mg/mg [facility] Cardiac echo study Procedure Ordered By: Gian Carlos on 01-18-2024 Ao ASC index 1.63 cm/m2 [facility] Work Phone: Ao peak meliton 1.46 m/s [facility] Work Phone: Ao SOV index 1.56 cm/m2 [facility] Work Phone: Ao STJ index 1.25 cm/m2 [facility] Work Phone: [phone] Ao VTI 35.74 cm [facility] Work Phone: Ascending [facility] 3.[facility]: AV LVOT peak gradient 4 mmHg [facility] Work Phone: AV mean gradient 5 [facility]: [facility] peak gradient 9 mmHG [facility] Work [facility]: AV valve area 3.09 cm2 [facility] Work Phone: [facility]ocity [facility]: VEGA (continuity Vmax) 3.01 cm2 [facility] Work Phone: VEGA (continuity VTI) 3.09 cm2 [facility] Work Phone: VEGA index (continuity Vmax) 1.45 m/s [facility] Work Phone: VEGA index (continuity VTI) 1.49 cm2/m2 [facility] Work Phone: Avg e' pk meliton 0.07 m/s [facility] Work Phone: Avg E/e' ratio 19.45 [facility] Work Phone: Body surface area Derived from formula 2.08 m2 [facility] Work Phone: BP EF 62 % [facility] Work Phone: DI (Vmax) 0.73 [facility] Work Phone: DI (VTI) 0.74 m/2 [facility] Work Phone: E wave decelartion time 180.38 msec [facility] Work Phone: e' lateral pk meliton 0.0789 m/s [facility] Work [facility]: e' lateral pk meliton 0.08 m/s [facility] Work [facility]: e' septal pk meliton 0.0653 m/s [facility] Work Phone: e' septal pk meliton 0.07 m/s [facility] Work Phone: E/A ratio 2.67 [facility] Work Phone: E/e' lateral [facility] 17.62 [facility]: E/e' septal ratio 21.29 [facility] Work Phone: EF SP 2CH 66 [facility] Work Phone: EF SP 4CH 58 [facility] Work Phone: FS 28 % 28 - 44 % [facility] Work Phone: IVC ostium 2.30 cm [facility] Work Phone: IVS 1.11 cm [facility] Work Phone: LA AREA 2CH 24.36 cm2 [facility] Work Phone: LA area 4CH 20.36 cm2 [facility] Work Phone: LA ESV BP (MOD) 64 [facility] Work Phone: LA ESV BP (MOD) index 31 mL/m2 [facility] Work Phone: LA ESV SP 2CH (MOD) 76 mL [facility] Work Phone: LA ESV SP 4CH (MOD) 53 mL [facility] Work Phone: LV EDV BP 180 mL [facility] Work Phone: LV EDV SP 2CH 190 mL [facility] Work Phone: LV EDV SP 4CH 166 mL [facility] Work Phone: LV ESV BP 69 mL [facility] Work Phone: LV ESV SP 2CH 65 mL [facility] Work Phone: LV ESV SP 4CH 70 mL [facility] Work Phone: LV mass 254.73 g [facility] Work Phone: LV Mass Index 122.5 g/m2 [facility] Work Phone: LV RWT 0.42 [facility] Work Phone: LV stroke volume BP (ml) 111 mL [facility] Work Phone: LV stroke volume index BP 53.37 mL/m2 [facility] Work Phone: LVIDD 5.53 cm [facility] Work Phone: LVIDS 3.97 cm [facility] Work Phone: LVOT area 4.15 cm2 [facility] Work Phone: LVOT diameter 2.30 cm [facility] Work Phone: LVOT peak meliton 1.06 m/s [facility] Work Phone: LVOT peak VTI 26.61 cm [facility] Work Phone: LVOT stroke volume 111 cm3 [facility] Work Phone: LVOT stroke volume index 53.13 ml/m2 [facility] Work Phone: Mr max meliton 4.21 m/s [facility] Work Phone: MR VTI 134.50 cm [facility] Work Phone: MV mean gradient 3 mmHg [facility] Work Phone: MV peak gradient 11 mmHg [facility] Work Phone: MV pk A meliton 0.52 m/s [facility] Work Phone: MV pk E meliton 1.39 m/s [facility] Work Phone: MV stenosis pressure 1/2 time 58.56 ms [facility] Work Phone: MV valve area by continuity eq 2.93 cm2 [facility] Work Phone: MV valve area p 1/2 method 3.76 cm2 [facility] Work Phone: MV VTI 37.70 cm [facility] Work Phone: MVA (continuity VTI) 2.92 cm [facility] Work Phone: OSU AV VTI RATIO PRE STRESS 0.74 [facility] Work Phone: OSU ECHO LV BIPLANE SYSTOLIC VOLUME INDEX 33.17 mL/m2 [facility] Work Phone: OSU ECHO LV BP DIASTOLIC VOLUME INDEX 86.54 mL/m2 [facility] Work Phone: OSU ECHO MR PEAK GRADIENT 70.94 mmHg [facility] Work Phone: PW 1.16 cm [facility] Work Phone: RA area 4CH (MOD) 14.50 cm2 [facility] Work Phone: RA vol index 4CH (MOD) 18.27 mL/m2 [facility] Work Phone: Right atrium volume 4 chamber method of disks 38 mL [facility] Work Phone: RV Area diastolic 33.20 cm2 [facility] Work Phone: RV Area systolic 21.30 cm2 [facility] Work Phone: RV basal diam 4.52 cm [facility] Work Phone: RV Fractional area change 35.8 % [facility] Work Phone: RV long diam 8.96 cm [facility] Work Phone: RV mid diam 3.70 cm [facility] Work Phone: RV S' 22.01 cm/s [facility] Work Phone: RVOT peak gradient 4 [facility] Work Phone: RVOT peak meliton 0.96 m/s [facility] Work Phone: RVOT peak VTI 20.86 cm [facility] Work Phone: Sinus 3.24 cm [facility] Work Phone: STJ 2.61 cm [facility] Work Phone: Stroke Volume 111 cm/mL [facility] Work Phone: Stroke volume index [facility] Work Phone: TAPSE 2.19 cm [facility] Work Phone: [facility] Work Phone: Cardiac echo study Procedure [...] echocardiography study was performed. Imaging system used: Proximic. Indications Indications for study: shortness of breath. [facility] Radiology Study observation (narrative) [facility] HEPATIC FUNCTION PANELon Albumin [Mass/Vol] 3.5 g/dL Normal 3.5-5.0 [facility] Comment on above: Performed By: #### M MERLE CHM7, HFP, TSHQR ####[facility] (DEFAULT)[address] [facility] [address] ALP [Catalytic activity/Vol] 70 U/L Normal 32-126 [facility] Comment on above: Performed By: #### M MERLE CHM7, HFP, TSHQR ####[facility] (DEFAULT)[address] [facility] [address] ALT [Catalytic activity/Vol] 8 U/L Low 10-52 [facility] Comment on above: Performed By: #### M GO, CHM7, HFP, TSHQR ####[facility] (DEFAULT)[address] [place] [address] AST [Catalytic activity/Vol] 20 U/L Normal 10-39 [facility] Comment on above: Performed By: #### M GO, CHM7, HFP, TSHQR ####[facility] (DEFAULT)[address] [facility] [address] Bilirubin [Mass/Vol] 1.7 mg/dL High <1.5 [facility] Comment on above: Performed By: #### M GO, CHM7, HFP, TSHQR ####[facility] (DEFAULT)[address] [place] [address] Bilirubin.indirect [Mass/Vol] 0.4 mg/dL High <0.3 [facility] Comment on above: Performed By: #### M MERLE, CHM7, HFP, TSHQR ####[facility] (DEFAULT)[address] [place] [address] Protein [Mass/Vol] 6.0 g/dL Low 6.4-8.3 [facility] Comment on above: Performed By: #### M MERLE, CHM7, HFP, TSHQR ####[facility] (DEFAULT)[address] [place] [address] Albumin [Mass/Vol] 3.5 g/dL 3.5 - 5.0 g/dL [facility] ALP [Catalytic activity/Vol] 70 U/L 32 - 126 U/L [facility] ALT [Catalytic activity/Vol] 8 U/L Low 10 - 52 U/L [facility] AST [Catalytic activity/Vol] 20 U/L 10 - 39 U/L [facility] Bilirubin [Mass/Vol] 1.7 mg/dL High NINF - 1.5 mg/dL [facility] Bilirubin.direct [Mass/Vol] 0.4 mg/dL High NINF - 0.3 mg/dL [facility] Protein [Mass/Vol] 6.0 g/dL Low 6.4 - 8.3 g/dL [facility] MAGNESIUMon 01-18-2024 Magnesium [Mass/Vol] 1.5 mg/dL Low 1.6-2.6 [facility] Comment on above: Performed By: #### M GO, CHM7, HFP, TSHQR ####[facility] (DEFAULT)[address] [place] [address] Magnesium [Mass/Vol] 1.5 mg/dL Low 1.6 - 2 .6 mg/dL [facility] No Panel Informationon 01-18 Interpretation and review of laboratory results Abnormal [facility] PT,INR,PTTon 01-18-2024 aPTT Coag (Bld) [Time] 30.0 s Normal 24.0-34.3 [facility] Comment on above: Performed By: #### P TPTT ####[facility] (DEFAULT)[address] [place] [address] INR Coag (PPP) [Relative time] 1.1 {INR} Normal 0.9-1.1 [facility] Comment on above: Performed By: #### P TPTT ####[facility] (DEFAULT)[address] [place] [address] PT Coag (PPP) [Time] 14.5 s High 11.9-14.2 [facility] Comment on above: Performed By: #### P TPTT ####[facility] (DEFAULT)[address] [place] [address] aPTT Coag (PPP) [Time] 30.0 s [facility] INR Coag (Bld) [Relative time] 1.1 {INR} 0.9 - 1.1 [facility] Interpretation and review of laboratory results Abnormal [facility] PT Coag (PPP) [Time] 14.5 s High [facility] TSH W/FT4 REFLEXon Interpretation and review of laboratory results Normal [facility] TSH Qn 2.660 m[IU]/L [facility] TSH 2.660 uIU/mL Normal 0.550-4.780 [facility] Comment on above: Performed By: #### M GO, CHM7, HFP, TSHQR ####[facility] (DEFAULT)[address] [place] [address] AFP TUMOR MARKERon AFP Tumor Marker <2.2 Normal <8.1 [facility] Comment on above: Result Comment: This test was performed on the [employer] Immunoassay platform by [id number] which is a two-site sandwich chemiluminescent immunoassay. It is important to note that assays using different manufacturers and/or methods may not be comparable. Performed By: #### [facility] ####[facility] (DEFAULT)[address] [place] [address] DARYL AURIS SCREEN BY PCRO rdered By: Mynor Alejandro on 01-17-2024 Daryl auris Screen by PCR Not detected Not Detected [facility] Interpretation and review of laboratory results Normal [facility] This test was perfor med using a real-time PCR assay. This test was developed, and its performance characteristics determined by [facility] at [facility]. It has not been cleared or approved by the FDA. The laboratory is regulated under CLIA as qualified to perform high-complexity testing. This test is used for clinical purposes. It should not be regarded as investigational or for research. [facility] CBC,PLATELETSon 01-17-2024 Hematocrit (Bld) [Volume fraction] 37.2 % Low 39.6-48.8 [facility] Comment on above: Performed By: #### H [facility] ####[facility] (DEFAULT)[address] [place] [id number] Hemoglobin (Bld) [Mass/Vol] 12.0 g/dL Low 13.4-16.8 [facility] Comment on above: Performed By: #### [facility] ####[facility] (DEFAULT)[address] [place] [address] MCV (RBC) [Entitic vol] 86.5 fL Normal 79.0-94.5 [facility] Comment on above: Performed By: #### [facility] ####[facility] (DEFAULT)[address] [place] [address] Mean Cell Hgb 27.9 pg Normal 26.1-33.3 [facility] Comment on above: Performed By: #### H EMO ####[facility] (DEFAULT)[address] [place] [address] Mean Cell Hgb Conc 32.3 g/dL Normal 31.9-36.5 [facility] Comment on above: Performed By: #### H EMO ####[facility] (DEFAULT)[address] [place] [address] Platelet mean volume (Bld) [Entitic vol] 10.5 fL Normal 8.7-12.3 [facility] Comment on above: Performed By: #### H EMO ####[facility] (DEFAULT)[address] [place] [address] Platelets (Bld) [#/Vol] 159 10*3/uL Normal 146-337 [facility] Comment on above: Performed By: #### H EMO ####[facility] (DEFAULT)[address] [place] [address] RBC (Bld) [#/Vol] 4.30 10*6/uL Low 4.38-5.83 [facility] Comment on above: Performed By: #### H EMOGC ####[facility] (DEFAULT)[address] [place] [address] RBC Distribution 14.0 % Normal 10.9-14.3 [facility] Comment on above: Performed By: #### H EMOGC ####[facility] (DEFAULT)[address] [place] [address] WBC (Bld) [#/Vol] 3.69 10*3/uL Low 3.73-10.10 [facility] Comment on above: Performed By: #### H EMOGC ####[facility] (DEFAULT)[address] [place] [address] Erythrocyte distribution width (RBC) [Ratio] 14.0 % 10.9 - 14.3 % [facility] Hematocrit (Bld) [Volume fraction] 37.2 % Low 39.6 - 48.8 % [facility] Hemoglobin (Bld) [Mass/Vol] 12.0 g/dL Low 13.4 - 16.8 g/dL [facility] Interpretation and review of laboratory results Abnormal [facility] MCH (RBC) [Entitic mass] 27.9 pg 26.1 - 33.3 pg [facility] MCHC (RBC) [Mass/Vol] 32.3 g/dL 31.9 - 36.5 g/dL [facility] MCV (RBC) [Entitic vol] 86.5 fL 79.0 - 94.5 fL [facility] Platelet mean volume (Bld) [Entitic vol] 10.5 fL 8.7 - 12.3 fL [facility] Platelets (Bld) [#/Vol] 159 10*3/uL 146 - 337 K/uL [facility] RBC (Bld) [#/Vol] 4.30 10*6/uL Low [facility] WBC (Bld) [#/Vol] 3.69 10*3/uL Low 3.73 - 10. 10 K/uL [facility] CHEM 7 (LYTES,BUN,CREA,GLUC) on 01-17-2024 Anion gap [Moles/Vol] 13 mmol/L Normal 7-17 [facility] Comment on above: Performed By: #### NATHANIEL RAMÍREZ, HFP ####[facility] (DEFAULT)[address] [place] [address] Chloride [Moles/Vol] 109 mmol/L High 98-108 [facility] Comment on above: Performed By: #### NATHANIEL RAMÍREZ, HFP ####[facility] (DEFAULT)[address] [place] [address] CO2 [Moles/Vol] 21 mmol/L Normal 21-31 [facility] Comment on above: Performed By: #### NATHANIEL RAMÍREZ, HFP ####[facility] (DEFAULT)[address] [place] [address] Creatinine [Mass/Vol] 1.04 mg/dL Normal 0.70-1.30 [facility] Comment on above: Performed By: #### NATHANIEL RAMÍREZ, HFP ####[facility] (DEFAULT)[address] [place] [address] GFR/1.73 sq M.predicted among non-blacks MDRD (S/P/Bld) [Vol rate/Area] 86 mL/min/{1.73_m2} Normal >=60 [facility] Comment on above: Result Comment: Repo rted eGFR is based on the CKD-EPI 2020 equation using creatinine, age, and sex. Performed By: #### NATHANIEL RAMÍREZ, HFP ####[facility] (DEFAULT)[address] [facility] [address] Glucose [Mass/Vol] 82 mg/dL Normal 70-99 [facility] Comment on above: Performed By: #### NATHANIEL RAMÍREZ, HFP ####[facility] (DEFAULT)[address] [place] [address] Osmolality [Osmolality] 292 mosm/kg Normal 278-305 [facility] Comment on above: Performed By: #### NATHANIEL RAMÍREZ, HFP ####[facility] (DEFAULT)[address] [place] [address] Potassium [Moles/Vol] 4.4 mmol/L Normal 3.5-5.0 [facility] Comment on above: Performed By: #### NATHANIEL RAMÍREZ, HFP ####[facility] (DEFAULT)[address] [place] [address] Sodium [Moles/Vol] 139 mmol/L Normal 135-145 [facility] Comment on above: Performed By: #### NATHANIEL RAMÍREZ, HFP ####[facility] (DEFAULT)[address] [place] [address] Urea nitrogen [Mass/Vol] 17 mg/dL Normal 7-25 [facility] Comment on above: Performed By: #### M TJ BLOOM7, HFP ####[facility] (DEFAULT)[address] [place] [address] Urea nitrogen/Creatinine [Mass ratio] 16 mg/mg Normal [facility] Comment on above: Performed By: #### M TJ BLOOM7, HFP ####[facility] (DEFAULT)[address] [place] [address] Anion gap [Moles/Vol] 13 mmol/L 7 - 17 mmol/L [facility] Chloride [Moles/Vol] 109 mmol/L High 98 - 10 8 mmol/L [facility] CO2 [Moles/Vol] 21 mmol/L 21 - 31 mmol/L [facility] Creatinine [Mass/Vol] 1.04 mg/dL 0.70 - 1.30 mg/dL [facility] eGFR, CKD-EPI, Male 86 - PINF [facility] Comment on above: Reported eGFR is bas ed on the CKD-EPI 2020 equation using creatinine, age, and sex. Glucose [Mass/Vol] 82 mg/dL 70 - 99 mg/dL [facility] Osmolality Calc [Osmolality] 292 [facility] Potassium [Moles/Vol] 4.4 mmol/L 3.5 - 5.0 mmol/L [facility] Sodium [Moles/Vol] 139 mmol/L 135 - 145 mmol/L [facility] Urea nitrogen [Mass/Vol] 17 mg/dL 7 - 25 mg/dL [facility] Urea nitrogen/Creatinine [Mass ratio] 16 mg/mg [facility] ABDOMEN/PELVIS WITHOUT CO NTRASTon 01-17-2024 CT ABDOMEN/PELVIS WITHOUT CONTRAST Normal [facility] CT Abdomen and Pelvis WO [...] unremarkable. Kidneys: Severe atrophy of the bilateral [place] kidney is without hydronephrosis. Right lower quadrant [...] unremarkable. Kidneys: Severe atrophy of the bilateral [place] kidney is without hydronephrosis. Right lower quadrant [...] the middle lobe. Trace left pleural effusion. [facility] Radiology Study observation (narrative) [facility] HEPATIC FUNCTION PANELon Albumin [Mass/Vol] 3.5 g/dL Normal 3.5-5.0 [facility] Comment on above: Performed By: #### M NATHANIEL BLOOM, HFP ####[facility] (DEFAULT)[address] [place] [address] ALP [Catalytic activity/Vol] 73 U/L Normal 32-126 [facility] Comment on above: Performed By: #### M NATHANIEL BLOOM, HFP ####[facility] (DEFAULT)[address] [place] [address] ALT [Catalytic activity/Vol] 7 U/L Low 10-52 [facility] Comment on above: Performed By: #### M NATHANIEL BLOOM, HFP ####[facility] (DEFAULT)[address] [place] [address] AST [Catalytic activity/Vol] 25 U/L Normal 10-39 [facility] Comment on above: Performed By: #### M HELEN BLOOMM7, HFP ####[facility] (DEFAULT)[address] [place] [address] Bilirubin [Mass/Vol] 1.8 mg/dL High <1.5 [facility] Comment on above: Performed By: #### M HELEN BLOOMM7, HFP ####[facility] (DEFAULT)[address] [place] [address] Bilirubin.indirect [Mass/Vol] 0.3 mg/dL High <0.3 [facility] Comment on above: Performed By: #### M NATHANIEL BLOOM, HFP ####[facility] (DEFAULT)[address] [place] [address] Protein [Mass/Vol] 6.0 g/dL Low 6.4-8.3 [facility] Comment on above: Performed By: #### M NATHANIEL BLOOM, HFP ####[facility] (DEFAULT)[address] [place] [address] Albumin [Mass/Vol] 3.5 g/dL 3.5 - 5.0 g/dL [facility] ALP [Catalytic activity/Vol] 73 U/L 32 - 126 U/L [facility] ALT [Catalytic activity/Vol] 7 U/L Low 10 - 52 U/L [facility] AST [Catalytic activity/Vol] 25 U/L 10 - 39 U/L [facility] Bilirubin [Mass/Vol] 1.8 mg/dL High NINF - 1.5 mg/dL [facility] Bilirubin.direct [Mass/Vol] 0.3 mg/dL High NINF - 0.3 mg/dL [facility] Protein [Mass/Vol] 6.0 g/dL Low 6.4 - 8.3 g/dL [facility] HISTOPLASMA AND BLASTOMYCES ANTIGEN, ENZYME IMMUNOASSAY, SERMon 01-17-2024 Histoplasma/Blastomy antonia Ag Result Not detected Normal Not Detected [facility] Comment on above: Result Comment: No a ntigen from Histoplasma or Blastomyces detected. Falsenegative results may occur depending on extent of disease,and/or site of infection. Repeat testing on a new specimenif clinically indicated. Performed By: #### H CORAL ####[facility] (DEFAULT)[address] [place] [address] Histoplasma/Blastomy antonia Ag Value Not detected Normal [facility] Comment on above: Result Comment: ---- ADDITIONAL INFORMATION This test was developed and its performance characteristicsdetermined by [facility] in a manner consistent with CLIArequirements. This test has not been cleared or approved bythe U.S. Food and Drug Administration.Test Performed by:[address] [address]Duf Director: Rosendo Bose M.D. Ph.D.; CLIA# [id number] Performed By: #### H CORAL ####[facility] (DEFAULT)[address] [place] [address] MAGNESIUMon 01-17-2024 Magnesium [Mass/Vol] 1.7 mg/dL Normal 1.6-2.6 [facility] Comment on above: Performed By: #### M GO, CHM7, [facility] ####[facility] (DEFAULT)[address] [place] [address] Interpretation and review of laboratory results Normal [facility] Magnesium [Mass/Vol] 1.7 mg/dL 1.6 - 2 .6 mg/dL [facility] No Panel Informationon 01-17 Interpretation and review of laboratory results Abnormal [facility] PT,INR,PTTon 01-17-2024 aPTT Coag (PPP) [Time] 29.9 s [facility] INR Coag (Bld) [Relative time] 1.1 {INR} 0.9 - 1.1 [facility] Interpretation and review of laboratory results Abnormal [facility] PT Coag (PPP) [Time] 14.5 s High [facility] aPTT Coag (Bld) [Time] 29.9 s Normal 24.0-34.3 [facility] Comment on above: Performed By: #### P TPTT ####[facility] (DEFAULT)[address] [place] [address] INR Coag (PPP) [Relative time] 1.1 {INR} Normal 0.9-1.1 [facility] Comment on above: Performed By: #### P TPTT ####[facility] (DEFAULT)[address] [place] [address] PT Coag (PPP) [Time] 14.5 s High 11.9-14.2 [facility] Comment on above: Performed By: #### P TPTT ####[facility] (DEFAULT)[address] [place] [address] B-TYPE NATRIURETIC PEPTIDE ( BRAIN)on 01-16-2024 Interpretation and review of laboratory results Abnormal [facility] Natriuretic peptide B (Bld) [Mass/Vol] 212 pg/mL High 0 - 100 pg/mL [facility] Natriuretic peptide B (Bld) [Mass/Vol] 212 pg/mL High 0-100 [facility] Comment on above: Performed By: #### B DUTY OFFICER ####[facility] (DEFAULT)[address] [place] [address] CALCIUMon 01-16-2024 Calcium [Mass/Vol] 8.5 mg/dL Low 8.6-10.5 [facility] Comment on above: Performed By: #### C A, MGO, CHM7, HFP, IPB ####[facility] (DEFAULT)[address] [place] [address] Calcium [Mass/Vol] 8.5 mg/dL Low 8.6 - 10. 5 mg/dL [facility] DARYL AURIS SCREEN BY PCRo n 01-16-2024 Daryl auris Screen by PCR Not detected Normal Not Detected [facility] Comment on above: Order Comment: This test was performed using a real-time PCR assay. This test was developed, and its performance characteristics determined by [facility] at [facility]. It has not been cleared or approved by the FDA. The laboratory is regulated under CLIA as qualified to perform high-complexity testing. This test is used for clinical purposes. It should not be regarded as investigational or for research. Performed By: #### C ANDIDA AURIS SCREEN BY PCR ####[facility] (DEFAULT)[address] [place] [address], [place] [address] CBC AND ELECTRONIC DIFFon Abs Baso Auto < Normal 0.00-0.09 [facility] Comment on above: Performed By: #### L [id number] ####[facility] (DEFAULT)[address] [facility] [address] Basophils/100 WBC (Bld) 0.6 % Normal [facility] Comment on above: Performed By: #### L [id number] ####[facility] (DEFAULT)[address] [place] [address] DIFF STATUS Electronic Differential Normal [facility] Comment on above: Performed By: #### L [id number] ####[facility] (DEFAULT)[address] [place] [address] Eosinophils (Bld) [#/Vol] 0.09 10*3/uL Normal 0.00-0.48 [facility] Comment on above: Performed By: #### L [id number] ####[facility] (DEFAULT)[address] [place] [address] Eosinophils/100 WBC (Bld) 2.5 % Normal [facility] Comment on above: Performed By: #### L [id number] ####[facility] (DEFAULT)[address] [place] [address] Hematocrit (Bld) [Volume fraction] 37.4 % Low 39.6-48.8 [facility] Comment on above: Performed By: #### L [id number] ####[facility] (DEFAULT)[address] [place] [address] Hemoglobin (Bld) [Mass/Vol] 12.1 g/dL Low 13.4-16.8 [facility] Comment on above: Performed By: #### L [id number] ####[facility] (DEFAULT)[address] [facility] [address] Immature Grans % 0.3 % Normal [facility] Comment on above: Performed By: #### L [id number] ####[facility] (DEFAULT)[address] [place] [address] Immature Grans Absolute < Normal <=0.07 [facility] Comment on above: Performed By: #### L AB980 ####[facility] (DEFAULT)[address] [place] [address], [place] [address] Lymphocytes (Bld) [#/Vol] 1.16 10*3/uL Normal 0.83-3.57 [facility] Comment on above: Performed By: #### L AB980 ####[facility] (DEFAULT)[address] [place] [address], [place] [address] Lymphocytes/100 WBC (Bld) 32.0 % Normal [facility] Comment on above: Performed By: #### L [id number] ####[facility] (DEFAULT)[address] [place] [address], [place] [address] MCV (RBC) [Entitic vol] 87.8 fL Normal 79.0-94.5 [facility] Comment on above: Performed By: #### L [id number] ####[facility] (DEFAULT)[address] [facility] [address] Mean Cell Hgb 28.4 pg Normal 26.1-33.3 [facility] Comment on above: Performed By: #### L AB980 ####[facility] (DEFAULT)[address] [place] [address] Mean Cell Hgb Conc 32.4 g/dL Normal 31.9-36.5 [facility] Comment on above: Performed By: #### L [id number] ####[facility] (DEFAULT)[address] [facility] [address] Monocytes (Bld) [#/Vol] 0.43 10*3/uL Normal 0.24-0.93 [facility] Comment on above: Performed By: #### L AB980 ####[facility] (DEFAULT)[address] [facility] [address] Monocytes/100 WBC (Bld) 11.9 % Normal [facility] Comment on above: Performed By: #### L AB980 ####[facility] (DEFAULT)[address] [facility] [address] Nucleated RBC 0.0 /100 WBC Normal <=0.2 [facility] Comment on above: Performed By: #### L [id number] ####[facility] (DEFAULT)[address] [facility] [address] Platelet mean volume (Bld) [Entitic vol] 10.1 fL Normal 8.7-12.3 [facility] Comment on above: Performed By: #### L [id number] ####[facility] (DEFAULT)[address] [facility] [address] Platelets (Bld) [#/Vol] 155 10*3/uL Normal 146-337 [facility] Comment on above: Performed By: #### L [id number] ####[facility] (DEFAULT)[address] [place] [address] RBC (Bld) [#/Vol] 4.26 10*6/uL Low 4.38-5.83 [facility] Comment on above: Performed By: #### L [id number] ####[facility] (DEFAULT)[address] [place] [address] RBC Distribution 14.0 % Normal 10.9-14.3 [facility] Comment on above: Performed By: #### L [id number] ####[facility] (DEFAULT)[address] [facility] [address] Segs + Bands Auto 52.7 % Normal [facility] Comment on above: Performed By: #### L [id number] ####[facility] (DEFAULT)[address] [facility] [address] Segs + Bands,Absolute Auto 1.91 K/uL Normal 1.57-6.19 [facility] Comment on above: Performed By: #### L [id number] ####[facility] (DEFAULT)[address] [place] [address] WBC (Bld) [#/Vol] 3.62 10*3/uL Low 3.73-10.10 [facility] Comment on above: Performed By: #### L [id number] ####[facility] (DEFAULT)[address] [place] [address] Basophils (Bld) [#/Vol] K/uL 0.00 - 0.09 K/uL [facility] Basophils/100 WBC (Bld) 0.6 % [facility] Differential cell count method Nom (Bld) Electronic Differential [facility] Eosinophils (Bld) [#/Vol] 0.09 10*3/uL 0.00 - 0.48 K/uL [facility] Eosinophils/100 WBC (Bld) 2.5 % [facility] Erythrocyte distribution width (RBC) [Ratio] 14.0 % 10.9 - 14.3 % [facility] Hematocrit (Bld) [Volume fraction] 37.4 % Low 39.6 - 48.8 % [facility] Hemoglobin (Bld) [Mass/Vol] 12.1 g/dL Low 13.4 - 16.8 g/dL [facility] Immature granulocytes (Bld) [#/Vol] K/uL NINF - 0.07 K/uL [facility] Immature granulocytes/100 WBC (Bld) 0.3 % [facility] Interpretation and review of laboratory results Abnormal [facility] Lymphocytes (Bld) [#/Vol] 1.16 10*3/uL 0.83 - 3.57 K/uL [facility] Lymphocytes/100 WBC (Bld) 32.0 % [facility] MCH (RBC) [Entitic mass] 28.4 pg 26.1 - 33.3 pg [facility] MCHC (RBC) [Mass/Vol] 32.4 g/dL 31.9 - 36.5 g/dL [facility] MCV (RBC) [Entitic vol] 87.8 fL 79.0 - 94.5 fL [facility] Monocytes (Bld) [#/Vol] 0.43 10*3/uL 0.24 - 0.93 K/uL [facility] Monocytes/100 WBC (Bld) 11.9 % [facility] Neutrophils (Bld) [#/Vol] 1.91 10*3/uL 1.57 - 6.19 K/uL [facility] Nucleated RBC/100 WBC (Bld) [Ratio] 0.0 % [facility]F [facility] Platelet mean volume (Bld) [Entitic vol] 10.1 fL 8.7 - 12.3 fL [facility] Platelets (Bld) [#/Vol] 155 10*3/uL 146 - 337 K/uL [facility] RBC (Bld) [#/Vol] 4.26 10*6/uL Low [facility] Segmented neutrophils/100 WBC (Bld) 52.7 % [facility] WBC (Bld) [#/Vol] 3.62 10*3/uL Low 3.73 - 10. 10 K/uL [facility] CHEM 7 (LYTES,BUN,CREA,GLUC) on 01-16-2024 Anion gap [Moles/Vol] 11 mmol/L Normal 7-17 [facility] Comment on above: Performed By: #### C A, MGO, CHM7, HFP, IPB ####[facility] (DEFAULT)[address] [facility] [address] Chloride [Moles/Vol] 108 mmol/L Normal 98-108 [facility] Comment on above: Performed By: #### C A, MGO, CHM7, HFP, IPB ####[facility] (DEFAULT)[address] [facility] [address] CO2 [Moles/Vol] 24 mmol/L Normal 21-31 [facility] Comment on above: Performed By: #### C A, MGO, CHM7, HFP, IPB ####[facility] (DEFAULT)[address] [facility] [address] Creatinine [Mass/Vol] 1.04 mg/dL Normal 0.70-1.30 [facility] Comment on above: Performed By: #### C A, MGO, CHM7, HFP, IPB ####[facility] (DEFAULT)[address] [place] [address] GFR/1.73 sq M.predicted among non-blacks MDRD (S/P/Bld) [Vol rate/Area] 86 mL/min/{1.73_m2} Normal >=60 [facility] Comment on above: Result Comment: Repo rted eGFR is based on the CKD-EPI 2020 equation using creatinine, age, and sex. Performed By: #### C A, MGO, CHM7, HFP, IPB ####[facility] (DEFAULT)[address] [facility] [address] Glucose [Mass/Vol] 95 mg/dL Normal 70-99 [facility] Comment on above: Performed By: #### C A, MGO, CHM7, HFP, IPB ####[facility] (DEFAULT)[address] [place] [address] Osmolality [Osmolality] 293 mosm/kg Normal 278-305 [facility] Comment on above: Performed By: #### C Tray, MGO, CHM7, HFP, IPB ####[facility] (DEFAULT)[address] [place] [address] Potassium [Moles/Vol] 4.0 mmol/L Normal 3.5-5.0 [facility] Comment on above: Performed By: #### Chinedu Feliz, MGO, CHM7, HFP, IPB ####[facility] (DEFAULT)[address] [place] [address], [place] [address] Sodium [Moles/Vol] 139 mmol/L Normal 135-145 [facility] Comment on above: Performed By: #### Chinedu Feliz, MGO, CHM7, HFP, IPB ####[facility] (DEFAULT)[address] [place] [address], [place] [address] Urea nitrogen [Mass/Vol] 19 mg/dL Normal 7-25 [facility] Comment on above: Performed By: #### Chinedu Feliz, MGO, CHM7, HFP, IPB ####[facility] (DEFAULT)[address] [place] [address], [place] [address] Urea nitrogen/Creatinine [Mass ratio] 18 mg/mg Normal [facility] Comment on above: Performed By: #### Chinedu A, MGO, CHM7, HFP, IPB ####[facility] (DEFAULT)[address] [place] [address] [place] [address] Anion gap [Moles/Vol] 11 mmol/L 7 - 17 mmol/L [facility] Chloride [Moles/Vol] 108 mmol/L 98 - 10 8 mmol/L [facility] CO2 [Moles/Vol] 24 mmol/L 21 - 31 mmol/L [facility] Creatinine [Mass/Vol] 1.04 mg/dL 0.70 - 1.30 mg/dL [facility] eGFR, CKD-EPI, Male 86 - PINF [facility] Comment on above: Reported eGFR is bas ed on the CKD-EPI 2020 equation using creatinine, age, and sex. Glucose [Mass/Vol] 95 mg/dL 70 - 99 mg/dL [facility] Osmolality Calc [Osmolality] 293 [facility] Potassium [Moles/Vol] 4.0 mmol/L 3.5 - 5.0 mmol/L [facility] Sodium [Moles/Vol] 139 mmol/L 135 - 145 mmol/L [facility] Urea nitrogen [Mass/Vol] 19 mg/dL 7 - 25 mg/dL [facility] Urea nitrogen/Creatinine [Mass ratio] 18 mg/mg [facility] D-DIMER,QUANTITATIVEon 01-16 D-Dimer, High Sensitivity 0.67 mcg/mL FEU High <0.50 [facility] Comment on above: Result Comment: The D-Dimer assay is intended for use in conjuction with a clinical pretest probability (PTP) assessment model to exclude pulmonary embolism (PE) and as an aid in the diagnosis of Deep Vein Thrombosis (DVT) in outpatients suspected of PE or DVT. For the assay in use at [facility] ([facility]), a cutoff of <0.50 mcg/mL has a Negative Predictive Value of 99.7% for exclusion of DVT in low and moderate PTP patients. Performed By: #### P TPTT, HSDDI ####[facility] (DEFAULT)[address] [place] [address] D-DIMER,QUANTITATIVEOrdered By: Shaji Kelly on 01-16-2024 Fibrin D-dimer FEU (PPP) [Mass/Vol] 0.67 High NINF [facility] Comment on above: The D-Dimer assay is intended for use in conjuction with a clinical pretest probability (PTP) assessment model to exclude pulmonary embolism (PE) and as an aid in the diagnosis of Deep Vein Thrombosis (DVT) in outpatients suspected of PE or DVT. For the assay in use at [facility] ([facility]), a cutoff of <0.50 mcg/mL has a Negative Predictive Value of 99.7% for exclusion of DVT in low and moderate PTP patients. Interpretation and review of laboratory results Abnormal [facility] HEPATIC FUNCTION PANELon Albumin [Mass/Vol] 3.7 g/dL Normal 3.5-5.0 [facility] Comment on above: Performed By: #### C A, MGO, CHM7, HFP, IPB ####[facility] (DEFAULT)[address] [place] [address] ALP [Catalytic activity/Vol] 70 U/L Normal 32-126 [facility] Comment on above: Performed By: #### C A, MGO, CHM7, HFP, IPB ####[facility] (DEFAULT)[address] [place] [address] ALT [Catalytic activity/Vol] 8 U/L Low 10-52 [facility] Comment on above: Performed By: #### C A, MGO, CHM7, HFP, IPB ####[facility] (DEFAULT)[address] [place] [address] AST [Catalytic activity/Vol] 21 U/L Normal 10-39 [facility] Comment on above: Performed By: #### C A, MGO, CHM7, HFP, IPB ####[facility] (DEFAULT)[address] [place] [address] Bilirubin [Mass/Vol] 1.9 mg/dL High <1.5 [facility] Comment on above: Performed By: #### C A, MGO, CHM7, HFP, IPB ####[facility] (DEFAULT)[address] [place] [address] Bilirubin.indirect [Mass/Vol] 0.4 mg/dL High <0.3 [facility] Comment on above: Performed By: #### C A, MGO, CHM7, HFP, IPB ####[facility] (DEFAULT)[address] [place] [address] Protein [Mass/Vol] 6.1 g/dL Low 6.4-8.3 [facility] Comment on above: Performed By: #### C DOMENICA Feliz CHM7, TAVO, IPB ####[facility] (DEFAULT)[address] [place] [address] Albumin [Mass/Vol] 3.7 g/dL 3.5 - 5.0 g/dL [facility] ALP [Catalytic activity/Vol] 70 U/L 32 - 126 U/L [facility] ALT [Catalytic activity/Vol] 8 U/L Low 10 - 52 U/L [facility] AST [Catalytic activity/Vol] 21 U/L 10 - 39 U/L [facility] Bilirubin [Mass/Vol] 1.9 mg/dL High NINF - 1.5 mg/dL [facility] Bilirubin.direct [Mass/Vol] 0.4 mg/dL High NINF - 0.3 mg/dL [facility] Protein [Mass/Vol] 6.1 g/dL Low 6.4 - 8.3 g/dL [facility] MAGNESIUMon 01-16-2024 Magnesium [Mass/Vol] 1.7 mg/dL Normal 1.6-2.6 [facility] Comment on above: Performed By: #### C Tray MGHELEN MercadoMJessica, TAVO, IPB ####[facility] (DEFAULT)[address] [place] [address] Magnesium [Mass/Vol] 1.7 mg/dL 1.6 - 2 .6 mg/dL [facility] No Panel Informationon 01-16 Interpretation and review of laboratory results Abnormal [facility] Interpretation and review of laboratory results Normal [facility] PHOSPHATE, INORGANICon 01-16 Phosphorous 4.1 mg/dL Normal 2.2-4.6 [facility] Comment on above: Performed By: #### C Tray MGRogelio, HELENMJessica, HFP, IPB ####[facility] (DEFAULT)[address] [facility] [address] Phosphate [Mass/Vol] 4.1 mg/dL 2.2 - 4 .6 mg/dL [facility] PT,INR,PTTon 01-16-2024 aPTT Coag (Bld) [Time] 29.6 s Normal 24.0-34.3 [facility] Comment on above: Performed By: #### P TPTT, HSDDI ####[facility] (DEFAULT)[address] [facility] [address] INR Coag (PPP) [Relative time] 1.2 {INR} High 0.9-1.1 [facility] Comment on above: Performed By: #### P TPTT, HSDDI ####[facility] (DEFAULT)[address] [place] [address] PT Coag (PPP) [Time] 14.9 s High 11.9-14.2 [facility] Comment on above: Performed By: #### P TPTT, HSDDI ####[facility] (DEFAULT)[address] [place] [address] aPTT Coag (PPP) [Time] 29.6 s [facility] INR Coag (Bld) [Relative time] 1.2 {INR} High 0.9 - 1.1 [facility] Interpretation and review of laboratory results Abnormal [facility] PT Coag (PPP) [Time] 14.9 s High [facility] TACROLIMUS LEVEL, TROUGH (UT E DRUG LEVEL)Ordered By: Jimy Castillo on 01-16-2024 Interpretation and review of laboratory results Normal [facility] Tacrolimus (Bld) [Mass/Vol] 5.7 ng/mL Bone Marrow Transplant: 4.0-12.0, Therapeutic: 5.0-15.0 [facility] Method performed is a chemiluminescent microparticle immunoasssay on the [employer] i2000. The range is based on experience at [facility] and users should be aware that target concentrations vary widely depending on concomitant therapy, time post-transplant, and desired degree of immunosuppression. [facility] TACROLIMUS LEVEL, TROUGH (UT E DRUG LEVEL)on 01-16-2024 Tacrolimus, Trough 5.7 ng/mL Normal Bone Susana ow Transplant: 4.0-12.0, Therapeutic: 5.0-15.0 [facility] Comment on above: Order Comment: Pleas e draw at specified interval PRIOR to dose. Do not hold dose to wait for level. Specimens batched twice per day, (M-F) and once per day weekendsMethod performed is a chemiluminescent microparticle immunoasssay on the [employer] i2000.The range is based on experience at [facility] and users should be aware that target concentrations vary widely depending on concomitant therapy, time post-transplant, and desired degree of immunosuppression. Performed By: #### T ACRO ####[facility] (DEFAULT)[address] [place] [address] US ABDOMEN LIVER DOPPLERon 0 01-16-2024 US ABDOMEN LIVER DOPPLER Normal [facility] US.doppler Abdominal vessels on 01-16-2024 IMPRESSION: [...] pleural effusion. Trace right upper quadrant ascites. [facility] Radiology Study observation (narrative) [facility] US.doppler Abdominal vessels Ordered By: Iona Duran on 01-16-2024 [facility] Work Phone: XR CHEST PA AND LATERAL 2 EWSon 01-16-2024 XR CHEST PA AND LATERAL 2 VIEWS Normal [facility] XR Chest PA and Lateralon IMPRESSION: [...] Normal IMPRESSION IMPRESSION: Moderate right pleural effusion. [facility] Radiology Study observation (narrative) [facility] XR Chest PA and LateralOrder ed By: Daisha Patterson on 01-16-2024 [facility] Work Phone: ALL CBC WITH AUTO DIFFon BASOPHILS ABSOLUTE AUTO 0.0 [facility] Basophils/100 WBC (Bld) 0.5 % 0.2 - 2.0 % [facility] Eosinophils/100 WBC (Bld) 2.8 % 0.9 - 7.0 % [facility] Erythrocyte distribution width (RBC) [Ratio] 13.8 % 11.0 - 15.0 % [facility] Hematocrit (Bld) [Volume fraction] 43.7 % 42.0 - 54.0 % [facility] Hemoglobin (Bld) [Mass/Vol] 14.0 g/dL 14.0 - 18.0 g/dL [facility] IMMATURE GRANULOCYTES ABS AUTO 0.01 [facility] Immature granulocytes/100 WBC (Bld) 0.3 % 0.0 - 0.5 % [facility] LYMPHOCYTES ABSOLUTE AUTO 1.5 [facility] Lymphocytes/100 WBC (Bld) 37.5 % 20.5 - 60.0 % [facility] MCH (RBC) [Entitic mass] 28.4 pg 25.9 - 34.0 pg [facility] MCHC (RBC) [Mass/Vol] 32.0 g/dL 29.9 - 35.2 g/dL [facility] MCV (RBC) [Entitic vol] 88.6 fL 80.0 - 94.0 fL [facility] MONOCYTES ABSOLUTE AUTO 0.5 [facility] Monocytes/100 WBC (Bld) 11.9 % 1.7 - 12.0 % [facility] NEUTROPHILS ABSOLUTE AUTO 1.9 [facility] Neutrophils/100 WBC (Bld) 47.0 % 43.0 - 75.0 % [facility] Platelet mean volume (Bld) [Entitic vol] 10.3 fL 9.5 - 13.5 [facility]L [facility] PLT 180 [facility] RBC 4.93 [facility] WBC 4.0 [facility] CLINISYNC [facility] ALL CBC WITH AUTO DIFFon BASOPHILS ABSOLUTE AUTO 0.0 [facility] Basophils/100 WBC (Bld) 0.5 % 0.2 - 2.0 % [facility] Eosinophils/100 WBC (Bld) 2.6 % 0.9 - 7.0 % [facility] Erythrocyte distribution width (RBC) [Ratio] 13.5 % 11.0 - 15.0 % [facility] Hematocrit (Bld) [Volume fraction] 43.8 % 42.0 - 54.0 % [facility] Hemoglobin (Bld) [Mass/Vol] 14.0 g/dL 14.0 - 18.0 g/dL [facility] IMMATURE GRANULOCYTES ABS AUTO 0.00 [facility] Immature granulocytes/100 WBC (Bld) 0.0 % 0.0 - 0.5 % [facility] Interpretation and review of laboratory results Abnormal [facility] LYMPHOCYTES ABSOLUTE AUTO 1.8 [facility] Lymphocytes/100 WBC (Bld) 45.2 % 20.5 - 60.0 % [facility] MCH (RBC) [Entitic mass] 27.9 pg 25.9 - 34.0 pg [facility] MCHC (RBC) [Mass/Vol] 32.0 g/dL 29.9 - 35.2 g/dL [facility] MCV (RBC) [Entitic vol] 87.4 fL 80.0 - 94.0 fL [facility] MONOCYTES ABSOLUTE AUTO 0.4 [facility] Monocytes/100 WBC (Bld) 9.6 % 1.7 - 12.0 % [facility] NEUTROPHILS ABSOLUTE AUTO 1.6 [facility] Neutrophils/100 WBC (Bld) 42.1 % Low 43.0 - 75.0 % [facility] Platelet mean volume (Bld) [Entitic vol] 9.8 fL 9.5 - 13.5 fL [facility] TBH EO # 0.1 [facility]H PLT 180 [facility] RBC 5.01 [facility] TB WBC 3.9 Low [facility] CLINISYNC [facility] CHEM 7 (LYTES,BUN,CREA,GLUC) on 09-11-2023 Anion gap [Moles/Vol] 13 mmol/L Normal 7-17 [facility] Comment on above: Performed By: #### NATHANIEL RAMÍREZ ####[facility] (DEFAULT)[address] [place] [address] Chloride [Moles/Vol] 111 mmol/L High 98-108 [facility] Comment on above: Performed By: #### NATHANIEL RAMÍREZ ####[facility] (DEFAULT)[address] [place] [address] CO2 [Moles/Vol] 20 mmol/L Low 21-31 [facility] Comment on above: Performed By: #### NATHANIEL RAMÍREZ ####[facility] (DEFAULT)[address] [place] [address] Creatinine [Mass/Vol] 1.13 mg/dL Normal 0.70-1.30 [facility] Comment on above: Performed By: #### TJ RAMÍREZ7 ####[facility] (DEFAULT)[address] [place] [address] GFR/1.73 sq M.predicted among non-blacks MDRD (S/P/Bld) [Vol rate/Area] 78 mL/min/{1.73_m2} Normal >=60 [facility] Comment on above: Result Comment: Repo rted eGFR is based on the CKD-EPI 2020 equation using creatinine, age, and sex. Performed By: #### TJ RAMÍREZ7 ####[facility] (DEFAULT)[address] [place] [address] Glucose [Mass/Vol] 109 mg/dL High 70-99 [facility] Comment on above: Performed By: #### NATHANIEL RAMÍREZ ####[facility] (DEFAULT)[address] [place] [address] Osmolality [Osmolality] 295 mosm/kg Normal 278-305 [facility] Comment on above: Performed By: #### NATHANIEL RAMÍREZ ####[facility] (DEFAULT)[address] [place] [address] Potassium [Moles/Vol] 4.3 mmol/L Normal 3.5-5.0 [facility] Comment on above: Performed By: #### TJ RAMÍREZ7 ####[facility] (DEFAULT)[address] [place] [address] Sodium [Moles/Vol] 140 mmol/L Normal 135-145 [facility] Comment on above: Performed By: #### TJ RAMÍREZ7 ####[facility] (DEFAULT)[address] [place] [address] Urea nitrogen [Mass/Vol] 16 mg/dL Normal 7-25 [facility] Comment on above: Performed By: #### Rod HELEN BLOOMM7 ####[facility] (DEFAULT)[address] [place] [address] Urea nitrogen/Creatinine [Mass ratio] 14 mg/mg Normal [facility] Comment on above: Performed By: #### M HELEN BLOOMM7 ####[facility] (DEFAULT)[address] [place] [address] Anion gap [Moles/Vol] 13 mmol/L 7 - 17 mmol/L [facility] Chloride [Moles/Vol] 111 mmol/L High 98 - 10 8 mmol/L [facility] CO2 [Moles/Vol] 20 mmol/L Low 21 - 31 mmol/L [facility] Creatinine [Mass/Vol] 1.13 mg/dL 0.70 - 1.30 mg/dL [facility] eGFR, CKD-EPI, Male 78 - PINF [facility] Glucose [Mass/Vol] 109 mg/dL High 70 - 99 mg/dL [facility] Interpretation and review of laboratory results Abnormal [facility] Osmolality Calc [Osmolality] 295 [facility] Potassium [Moles/Vol] 4.3 mmol/L 3.5 - 5.0 mmol/L [facility] Sodium [Moles/Vol] 140 mmol/L 135 - 145 mmol/L [facility] Urea nitrogen [Mass/Vol] 16 mg/dL 7 - 25 mg/dL [facility] Urea nitrogen/Creatinine [Mass ratio] 14 mg/mg [facility] GLUCOSE POCon 09-11-2023 Glucose [Mass/Vol] 108 mg/dL High 70 - 99 mg/dL [facility] Interpretation and review of laboratory results Abnormal [facility] POC Sample Type [facility] Legionella sp identified Org specific cx Nom (Unsp spec)on 09-11-2023 Bacteria identified Cx Nom (Unsp spec) NO GROWTH DAY 7 OF 7 [facility] MAGNESIUMon 09-11-2023 Magnesium [Mass/Vol] 1.6 mg/dL Normal 1.6-2.6 [facility] Comment on above: Performed By: #### M NATHANIEL BLOOM ####[facility] (DEFAULT)[address] [place] [address] Interpretation and review of laboratory results Normal [facility] Magnesium [Mass/Vol] 1.6 mg/dL 1.6 - 2 .6 mg/dL [facility] No Panel Informationon 09-11 [facility] TACROLIMUS LEVEL, TROUGH (UT E DRUG LEVEL)on 09-11-2023 Interpretation and review of laboratory results Normal [facility] Tacrolimus (Bld) [Mass/Vol] 11.5 ng/mL [facility] Tacrolimus, Trough 11.5 ng/mL Normal Bone Susana ow Transplant: 4.0-12.0, Therapeutic: 5.0-15.0 [facility] Comment on above: Order Comment: Pleas e draw at specified interval PRIOR to dose. Do not hold dose to wait for level. Specimens batched twice per day, (M-) and once per day weekendsMethod performed is a chemiluminescent microparticle immunoasssay on the [employer] i2000.The range is based on experience at [facility] and users should be aware that target concentrations vary widely depending on concomitant therapy, time post-transplant, and desired degree of immunosuppression. Performed By: #### T ACRO ####[facility] (DEFAULT)[address] [place] [address] CBC,PLATELETSon 09-10-2023 Hematocrit (Bld) [Volume fraction] 40.0 % Normal 39.6-48.8 [facility] Comment on above: Performed By: #### H EMO ####[facility] (DEFAULT)[address] [place] [address] Hemoglobin (Bld) [Mass/Vol] 12.7 g/dL Low 13.4-16.8 [facility] Comment on above: Performed By: #### H EMOGC ####[facility] (DEFAULT)[address] [place] [address] MCV (RBC) [Entitic vol] 86.0 fL Normal 79.0-94.5 [facility] Comment on above: Performed By: #### H EMOGC ####[facility] (DEFAULT)[address] [place] [address] Mean Cell Hgb 27.3 pg Normal 26.1-33.3 [facility] Comment on above: Performed By: #### H EMOGC ####[facility] (DEFAULT)[address] [place] [address] Mean Cell Hgb Conc 31.8 g/dL Low 31.9-36.5 [facility] Comment on above: Performed By: #### H EMOGC ####[facility] (DEFAULT)[address] [place] [address] Platelet mean volume (Bld) [Entitic vol] 9.5 fL Normal 8.7-12.3 [facility] Comment on above: Performed By: #### H EMOGC ####[facility] (DEFAULT)[address] [place] [address] Platelets (Bld) [#/Vol] 225 10*3/uL Normal 146-337 [facility] Comment on above: Performed By: #### H EMOGC ####[facility] (DEFAULT)[address] [place] [address] RBC (Bld) [#/Vol] 4.65 10*6/uL Normal 4.38-5.83 [facility] Comment on above: Performed By: #### H EMOGC ####[facility] (DEFAULT)[address] [place] [address] RBC Distribution 13.9 % Normal 10.9-14.3 [facility] Comment on above: Performed By: #### H EMOGC ####[facility] (DEFAULT)[address] [place] [address] WBC (Bld) [#/Vol] 6.52 10*3/uL Normal 3.73-10.10 [facility] Comment on above: Performed By: #### H [facility] ####[facility] (DEFAULT)[address] [place] [address] Erythrocyte distribution width (RBC) [Ratio] 13.9 % 10.9 - 14.3 % [facility] Hematocrit (Bld) [Volume fraction] 40.0 % 39.6 - 48.8 % [facility] Hemoglobin (Bld) [Mass/Vol] 12.7 g/dL Low 13.4 - 16.8 g/dL [facility] Interpretation and review of laboratory results Abnormal [facility] MCH (RBC) [Entitic mass] 27.3 pg 26.1 - 33.3 pg [facility] MCHC (RBC) [Mass/Vol] 31.8 g/dL Low 31.9 - 36.5 g/dL [facility] MCV (RBC) [Entitic vol] 86.0 fL 79.0 - 94.5 fL [facility] Platelet mean volume (Bld) [Entitic vol] 9.5 fL 8.7 - 12.3 fL [facility] Platelets (Bld) [#/Vol] 225 10*3/uL 146 - 337 K/uL [facility] RBC (Bld) [#/Vol] 4.65 10*6/uL [facility] WBC (Bld) [#/Vol] 6.52 10*3/uL 3.73 - 10. 10 K/uL [facility] CHEM 7 (LYTES,BUN,CREA,GLUC) on 09-10-2023 Anion gap [Moles/Vol] 13 mmol/L Normal 7-17 [facility] Comment on above: Performed By: #### M GO, CHM7, [facility] ####[facility] (DEFAULT)[address] [place] [address] Chloride [Moles/Vol] 111 mmol/L High 98-108 [facility] Comment on above: Performed By: #### NATHANIEL RAMÍREZ, HFP ####[facility] (DEFAULT)[address] [place] [address] CO2 [Moles/Vol] 20 mmol/L Low 21-31 [facility] Comment on above: Performed By: #### NATHANIEL RAMÍREZ, HFP ####[facility] (DEFAULT)[address] [place] [address] Creatinine [Mass/Vol] 1.27 mg/dL Normal 0.70-1.30 [facility] Comment on above: Performed By: #### NATHANIEL RAMÍREZ, HFP ####[facility] (DEFAULT)[address] [place] [address] GFR/1.73 sq M.predicted among non-blacks MDRD (S/P/Bld) [Vol rate/Area] 68 mL/min/{1.73_m2} Normal >=60 [facility] Comment on above: Result Comment: Repo rted eGFR is based on the CKD-EPI 2020 equation using creatinine, age, and sex. Performed By: #### NATHANIEL RAMÍREZ, HFP ####[facility] (DEFAULT)[address] [place] [address] Glucose [Mass/Vol] 100 mg/dL High 70-99 [facility] Comment on above: Performed By: #### NATHANIEL RAMÍREZ, HFP ####[facility] (DEFAULT)[address] [place] [address] Osmolality [Osmolality] 293 mosm/kg Normal 278-305 [facility] Comment on above: Performed By: #### NATHANIEL RAMÍREZ, HFP ####[facility] (DEFAULT)[address] [place] [address] Potassium [Moles/Vol] 4.4 mmol/L Normal 3.5-5.0 [facility] Comment on above: Performed By: #### NATHANIEL RAMÍREZ, HFP ####[facility] (DEFAULT)[address] [place] [address] Sodium [Moles/Vol] 140 mmol/L Normal 135-145 [facility] Comment on above: Performed By: #### NATHANIEL RAMÍREZ, HFP ####[facility] (DEFAULT)[address] [facility] [address] Urea nitrogen [Mass/Vol] 12 mg/dL Normal 7-25 [facility] Comment on above: Performed By: #### NATHANIEL RAMÍREZ, HFP ####[facility] (DEFAULT)[address] [place] [address] Urea nitrogen/Creatinine [Mass ratio] 9 mg/mg Normal [facility] Comment on above: Performed By: #### NATHANIEL RAMÍREZ, HFP ####[facility] (DEFAULT)[address] [facility] [address] Anion gap [Moles/Vol] 13 mmol/L 7 - 17 mmol/L [facility] Chloride [Moles/Vol] 111 mmol/L High 98 - 10 8 mmol/L [facility] CO2 [Moles/Vol] 20 mmol/L Low 21 - 31 mmol/L [facility] Creatinine [Mass/Vol] 1.27 mg/dL 0.70 - 1.30 mg/dL [facility] eGFR, CKD-EPI, Male 69 - PINF [facility] Glucose [Mass/Vol] 100 mg/dL High 70 - 99 mg/dL [facility] Osmolality Calc [facility]olality] [facility] Potassium [Moles/Vol] 4.4 mmol/L 3.5 - 5.0 mmol/L [facility] Sodium [Moles/Vol] 140 mmol/L 135 - 145 mmol/L [facility] Urea nitrogen [Mass/Vol] 12 mg/dL 7 - 25 mg/dL [facility] Urea nitrogen/Creatinine [Mass ratio] 9 mg/mg [facility] HEPATIC FUNCTION PANELon Albumin [Mass/Vol] 3.3 g/dL Low 3.5-5.0 [facility] Comment on above: Performed By: #### Rod BLOOM CHM7, HFP ####[facility] (DEFAULT)[address] [place] [address] ALP [Catalytic activity/Vol] 143 U/L High 32-126 [facility] Comment on above: Performed By: #### Rod BLOOM CHM7, HFP ####[facility] (DEFAULT)[address] [place] [address] ALT [Catalytic activity/Vol] 28 U/L Normal 10-52 [facility] Comment on above: Performed By: #### Rod BLOOM CHM7, HFP ####[facility] (DEFAULT)[address] [place] [address] AST [Catalytic activity/Vol] 29 U/L Normal 10-39 [facility] Comment on above: Performed By: #### Rod BLOOM CHM7, HFP ####[facility] (DEFAULT)[address] [place] [address] Bilirubin [Mass/Vol] 0.9 mg/dL Normal <1.5 [facility] Comment on above: Performed By: #### Rod BLOOM CHM7, HFP ####[facility] (DEFAULT)[address] [place] [address] Bilirubin.indirect [Mass/Vol] 0.2 mg/dL Normal <0.3 [facility] Comment on above: Performed By: #### Rod BLOOM CHM7, HFP ####[facility] (DEFAULT)[address] [place] [address] Protein [Mass/Vol] 6.8 g/dL Normal 6.4-8.3 [facility] Comment on above: Performed By: #### TJ RAMÍREZJessica, HFP ####[facility] (DEFAULT)[address] [place] [address] Albumin [Mass/Vol] 3.3 g/dL Low 3.5 - 5.0 g/dL [facility] ALP [Catalytic activity/Vol] 143 U/L High 32 - 126 U/L [facility] ALT [Catalytic activity/Vol] 28 U/L 10 - 52 U/L [facility] AST [Catalytic activity/Vol] 29 U/L 10 - 39 U/L [facility] Bilirubin [Mass/Vol] 0.9 mg/dL NINF - 1.5 mg/dL [facility] Bilirubin.direct [Mass/Vol] 0.2 mg/dL NINF - 0.3 mg/dL [facility] Protein [Mass/Vol] 6.8 g/dL 6.4 - 8.3 g/dL [facility] MAGNESIUMon 09-10-2023 Magnesium [Mass/Vol] 1.9 mg/dL Normal 1.6-2.6 [facility] Comment on above: Performed By: #### NATHANIEL RAMÍREZ, HFP ####[facility] (DEFAULT)[address] [place] [address] Interpretation and review of laboratory results Normal [facility] Magnesium [Mass/Vol] 1.9 mg/dL 1.6 - 2 .6 mg/dL [facility] No Panel Informationon 09-10 Interpretation and review of laboratory results Abnormal [facility] TACROLIMUS LEVEL, TROUGH (UT E DRUG LEVEL)Ordered By: Jimy Castillo on 09-10-2023 Interpretation and review of laboratory results Normal [facility] Tacrolimus (Bld) [Mass/Vol] 11.8 ng/mL [facility] TACROLIMUS LEVEL, TROUGH (UT E DRUG LEVEL)on 09-10-2023 Tacrolimus, Trough 11.8 ng/mL Normal [facility] Susana ow Transplant: 4.0-12.0, Therapeutic: 5.0-15.0 [facility] Comment on above: Order Comment: Pleas e draw at specified interval PRIOR to dose. Do not hold dose to wait for level. Specimens batched twice per day, (M-F) and once per day weekendsMethod performed is a chemiluminescent microparticle immunoasssay on the [employer] i2000.The range is based on experience at [facility] and users should be aware that target concentrations vary widely depending on concomitant therapy, time post-transplant, and desired degree of immunosuppression. Performed By: #### T ACRO ####[facility] (DEFAULT)[address] [facility] [address] CHEM 7 (LYTES,BUN,CREA,GLUC) on 09-09-2023 Anion gap [Moles/Vol] 14 mmol/L Normal 7-17 [facility] Comment on above: Performed By: #### NATHANIEL RAMÍREZ, IPB ####[facility] (DEFAULT)[address] [facility] [address] Chloride [Moles/Vol] 113 mmol/L High 98-108 [facility] Comment on above: Performed By: #### NATHANIEL RAMÍREZ, IPB ####[facility] (DEFAULT)[address] [place] [address] CO2 [Moles/Vol] 18 mmol/L Low 21-31 [facility] Comment on above: Performed By: #### NATHANIEL RAMÍREZ, IPB ####[facility] (DEFAULT)[address] [facility] [address] Creatinine [Mass/Vol] 1.03 mg/dL Normal 0.70-1.30 [facility] Comment on above: Performed By: #### Rod BLOOM CHM7, IPB ####[facility] (DEFAULT)[address] [place] [address] GFR/1.73 sq M.predicted among non-blacks MDRD (S/P/Bld) [Vol rate/Area] 87 mL/min/{1.73_m2} Normal >=60 [facility] Comment on above: Result Comment: Repo rted eGFR is based on the CKD-EPI 2020 equation using creatinine, age, and sex. Performed By: #### NATHANIEL RAMÍREZ, IPB ####[facility] (DEFAULT)[address] [place] [address] Glucose [Mass/Vol] 106 mg/dL High 70-99 [facility] Comment on above: Performed By: #### NATHANIEL RAMÍREZ, IPB ####[facility] (DEFAULT)[address] [place] [address] Osmolality [Osmolality] 294 mosm/kg Normal 278-305 [facility] Comment on above: Performed By: #### NATHANIEL RAMÍREZ, IPB ####[facility] (DEFAULT)[address] [place] [address] Potassium [Moles/Vol] 4.0 mmol/L Normal 3.5-5.0 [facility] Comment on above: Performed By: #### NATHANIEL RAMÍREZ, IPB ####[facility] (DEFAULT)[address] [place] [address] Sodium [Moles/Vol] 141 mmol/L Normal 135-145 [facility] Comment on above: Performed By: #### NATHANIEL RAMÍREZ, IPB ####[facility] (DEFAULT)[address] [place] [address] Urea nitrogen [Mass/Vol] 10 mg/dL Normal 7-25 [facility] Comment on above: Performed By: #### NATHANIEL RAMÍREZ, IPB ####[facility] (DEFAULT)[address] [place] [address] Urea nitrogen/Creatinine [Mass ratio] 10 mg/mg Normal [facility] Comment on above: Performed By: #### NATHANIEL RAMÍREZ, IPB ####[facility] (DEFAULT)[address] [place] [address] Anion gap [Moles/Vol] 14 mmol/L 7 - 17 mmol/L [facility] Chloride [Moles/Vol] 113 mmol/L High 98 - 10 8 mmol/L [facility] CO2 [Moles/Vol] 18 mmol/L Low 21 - 31 mmol/L [facility] Creatinine [Mass/Vol] 1.03 mg/dL 0.70 - 1.30 mg/dL [facility] eGFR, CKD-EPI, Male 87 - PINF [facility] Glucose [Mass/Vol] 106 mg/dL High 70 - 99 mg/dL [facility] Interpretation and review of laboratory results Abnormal [facility] Osmolality Calc [Osmolality] 294 [facility] Potassium [Moles/Vol] 4.0 mmol/L 3.5 - 5.0 mmol/L [facility] Sodium [Moles/Vol] 141 mmol/L 135 - 145 mmol/L [facility] Urea nitrogen [Mass/Vol] 10 mg/dL 7 - 25 mg/dL [facility] Urea nitrogen/Creatinine [Mass ratio] 10 mg/mg [facility] MAGNESIUMon 09-09-2023 Magnesium [Mass/Vol] 1.6 mg/dL Normal 1.6-2.6 [facility] Comment on above: Performed By: #### M NATHANIEL BLOOM, IPB ####[facility] (DEFAULT)[address] [place] [address] Magnesium [Mass/Vol] 1.6 mg/dL 1.6 - 2 .6 mg/dL [facility] No Panel Informationon 09-09 Interpretation and review of laboratory results Normal [facility] PHOSPHATE, INORGANICon 09-09 Phosphorous 3.8 mg/dL Normal 2.2-4.6 [facility] Comment on above: Performed By: #### M NATHANIEL BLOOM, IPB ####[facility] (DEFAULT)[address] [place] [address] Phosphate [Mass/Vol] 3.8 mg/dL 2.2 - 4 .6 mg/dL [facility] TACROLIMUS LEVEL, TROUGH (UT E DRUG LEVEL)on 09-09-2023 Interpretation and review of laboratory results Normal [facility] Tacrolimus (Bld) [Mass/Vol] 9.2 ng/mL [facility] Tacrolimus, Trough 9.2 ng/mL Normal Bone Susana ow Transplant: 4.0-12.0, Therapeutic: 5.0-15.0 [facility] Comment on above: Order Comment: Pleas e draw at specified interval PRIOR to dose. Do not hold dose to wait for level. Specimens batched twice per day, (M-) and once per day weekendsMethod performed is a chemiluminescent microparticle immunoasssay on the [employer] i2000.The range is based on experience at [facility] and users should be aware that target concentrations vary widely depending on concomitant therapy, time post-transplant, and desired degree of immunosuppression. Performed By: #### T ACRO ####[facility] (DEFAULT)[address] [place] [address] CBC,PLATELETSon 09-08-2023 Hematocrit (Bld) [Volume fraction] 36.1 % Low 39.6-48.8 [facility] Comment on above: Performed By: #### H [facility] ####[facility] (DEFAULT)[address] [place] [address] Hemoglobin (Bld) [Mass/Vol] 11.6 g/dL Low 13.4-16.8 [facility] Comment on above: Performed By: #### [facility] ####[facility] (DEFAULT)[address] [place] [address] MCV (RBC) [Entitic vol] 85.1 fL Normal 79.0-94.5 [facility] Comment on above: Performed By: #### H EMO ####[facility] (DEFAULT)[address] [place] [address] Mean Cell Hgb 27.4 pg Normal 26.1-33.3 [facility] Comment on above: Performed By: #### H EMOGC ####[facility] (DEFAULT)[address] [place] [address] Mean Cell Hgb Conc 32.1 g/dL Normal 31.9-36.5 [facility] Comment on above: Performed By: #### H EMOGC ####[facility] (DEFAULT)[address] [place] [address] Platelet mean volume (Bld) [Entitic vol] 9.5 fL Normal 8.7-12.3 [facility] Comment on above: Performed By: #### H EMOGC ####[facility] (DEFAULT)[address] [place] [address] Platelets (Bld) [#/Vol] 182 10*3/uL Normal 146-337 [facility] Comment on above: Performed By: #### H EMOGC ####[facility] (DEFAULT)[address] [place] [address] RBC (Bld) [#/Vol] 4.24 10*6/uL Low 4.38-5.83 [facility] Comment on above: Performed By: #### H EMOGC ####[facility] (DEFAULT)[address] [place] [address] RBC Distribution 13.6 % Normal 10.9-14.3 [facility] Comment on above: Performed By: #### H EMOGC ####[facility] (DEFAULT)[address] [place] [address] WBC (Bld) [#/Vol] 4.59 10*3/uL Normal 3.73-10.10 [facility] Comment on above: Performed By: #### H EMOGC ####[facility] (DEFAULT)[address] [place] [address] Erythrocyte distribution width (RBC) [Ratio] 13.6 % 10.9 - 14.3 % [facility] Hematocrit (Bld) [Volume fraction] 36.1 % Low 39.6 - 48.8 % [facility] Hemoglobin (Bld) [Mass/Vol] 11.6 g/dL Low 13.4 - 16.8 g/dL [facility] Interpretation and review of laboratory results Abnormal [facility] MCH (RBC) [Entitic mass] 27.4 pg 26.1 - 33.3 pg [facility] MCHC (RBC) [Mass/Vol] 32.1 g/dL 31.9 - 36.5 g/dL [facility] MCV (RBC) [Entitic vol] 85.1 fL 79.0 - 94.5 fL [facility] Platelet mean volume (Bld) [Entitic vol] 9.5 fL 8.7 - 12.3 fL [facility] Platelets (Bld) [#/Vol] 182 10*3/uL 146 - 337 K/uL [facility] RBC (Bld) [#/Vol] 4.24 10*6/uL Low [facility] WBC (Bld) [#/Vol] 4.59 10*3/uL 3.73 - 10. 10 K/uL [facility] CHEM 7 (LYTES,BUN,CREA,GLUC) on 09-08-2023 Anion gap [Moles/Vol] 12 mmol/L Normal 7-17 [facility] Comment on above: Performed By: #### M NATHANIEL BLOOM, HFP, IPB ####[facility] (DEFAULT)[address] [place] [address] Chloride [Moles/Vol] 113 mmol/L High 98-108 [facility] Comment on above: Performed By: #### M NATHANIEL BLOOM, HFP, IPB ####[facility] (DEFAULT)[address] [place] [address] CO2 [Moles/Vol] 21 mmol/L Normal 21-31 [facility] Comment on above: Performed By: #### M MERLE CHM7, HFP, IPB ####[facility] (DEFAULT)[address] [place] [address] Creatinine [Mass/Vol] 1.14 mg/dL Normal 0.70-1.30 [facility] Comment on above: Performed By: #### Rod BLOOM CHM7, HFP, IPB ####[facility] (DEFAULT)[address] [place] [address] GFR/1.73 sq M.predicted among non-blacks MDRD (S/P/Bld) [Vol rate/Area] 77 mL/min/{1.73_m2} Normal >=60 [facility] Comment on above: Result Comment: Repo rted eGFR is based on the CKD-EPI 2020 equation using creatinine, age, and sex. Performed By: #### Rod BLOOM CHM7, HFP, IPB ####[facility] (DEFAULT)[address] [facility] [address] Glucose [Mass/Vol] 107 mg/dL High 70-99 [facility] Comment on above: Performed By: #### Rod BLOOM CHM7, HFP, IPB ####[facility] (DEFAULT)[address] [facility] [address] Osmolality [Osmolality] 296 mosm/kg Normal 278-305 [facility] Comment on above: Performed By: #### Rod BLOOM CHM7, HFP, IPB ####[facility] (DEFAULT)[address] [facility] [address] Potassium [Moles/Vol] 3.9 mmol/L Normal 3.5-5.0 [facility] Comment on above: Performed By: #### oRd BLOOM CHM7, HFP, IPB ####[facility] (DEFAULT)[address] [place] [address] Sodium [Moles/Vol] 142 mmol/L Normal 135-145 [facility] Comment on above: Performed By: #### M MERLE CHM7, HFP, IPB ####[facility] (DEFAULT)[address] [facility] [address] Urea nitrogen [Mass/Vol] 11 mg/dL Normal 7-25 [facility] Comment on above: Performed By: #### M MERLE, CHM7, HFP, IPB ####[facility] (DEFAULT)[address] [facility] [address] Urea nitrogen/Creatinine [Mass ratio] 10 mg/mg Normal [facility] Comment on above: Performed By: #### M HELEN BLOOMM7, HFP, IPB ####[facility] (DEFAULT)[address] [place] [address] Anion gap [Moles/Vol] 12 mmol/L 7 - 17 mmol/L [facility] Chloride [Moles/Vol] 113 mmol/L High 98 - 10 8 mmol/L [facility] CO2 [Moles/Vol] 21 mmol/L 21 - 31 mmol/L [facility] Creatinine [Mass/Vol] 1.14 mg/dL 0.70 - 1.30 mg/dL [facility] eGFR, CKD-EPI, Male 78 - PINF [facility] Glucose [Mass/Vol] 107 mg/dL High 70 - 99 mg/dL [facility] Osmolality Calc [Osmolality] 296 [facility] Potassium [Moles/Vol] 3.9 mmol/L 3.5 - 5.0 mmol/L [facility] Sodium [Moles/Vol] 142 mmol/L 135 - 145 mmol/L [facility] Urea nitrogen [Mass/Vol] 11 mg/dL 7 - 25 mg/dL [facility] Urea nitrogen/Creatinine [Mass ratio] 10 mg/mg [facility] HEPATIC FUNCTION PANELon Albumin [Mass/Vol] 2.9 g/dL Low 3.5-5.0 [facility] Comment on above: Performed By: #### M MERLE, CHM7, HFP, IPB ####[facility] (DEFAULT)[address] [place] [address] ALP [Catalytic activity/Vol] 133 U/L High 32-126 [facility] Comment on above: Performed By: #### M GO, CHM7, HFP, IPB ####[facility] (DEFAULT)[address] [place] [address] ALT [Catalytic activity/Vol] 23 U/L Normal 10-52 [facility] Comment on above: Performed By: #### M GO, CHM7, HFP, IPB ####[facility] (DEFAULT)[address] [place] [address] AST [Catalytic activity/Vol] 23 U/L Normal 10-39 [facility] Comment on above: Performed By: #### M GO, CHM7, HFP, IPB ####[facility] (DEFAULT)[address] [place] [address] Bilirubin [Mass/Vol] 0.8 mg/dL Normal <1.5 [facility] Comment on above: Performed By: #### M GO, CHM7, HFP, IPB ####[facility] (DEFAULT)[address] [place] [address] Bilirubin.indirect [Mass/Vol] 0.2 mg/dL Normal <0.3 [facility] Comment on above: Performed By: #### M GO, CHM7, HFP, IPB ####[facility] (DEFAULT)[address] [place] [address] Protein [Mass/Vol] 5.9 g/dL Low 6.4-8.3 [facility] Comment on above: Performed By: #### M GO, CHM7, HFP, IPB ####[facility] (DEFAULT)[address] [place] [address] Albumin [Mass/Vol] 2.9 g/dL Low 3.5 - 5.0 g/dL [facility] ALP [Catalytic activity/Vol] 133 U/L High 32 - 126 U/L [facility] ALT [Catalytic activity/Vol] 23 U/L 10 - 52 U/L [facility] AST [Catalytic activity/Vol] 23 U/L 10 - 39 U/L [facility] Bilirubin [Mass/Vol] 0.8 mg/dL NINF - 1.5 mg/dL [facility] Bilirubin.direct [Mass/Vol] 0.2 mg/dL NINF - 0.3 mg/dL [facility] Protein [Mass/Vol] 5.9 g/dL Low 6.4 - 8.3 g/dL [facility] MAGNESIUMon 09-08-2023 Magnesium [Mass/Vol] 1.8 mg/dL Normal 1.6-2.6 [facility] Comment on above: Performed By: #### M NATHANIEL BLOOM, TAVO, IPB ####[facility] (DEFAULT)[address] [place] [address] Interpretation and review of laboratory results Normal [facility] Magnesium [Mass/Vol] 1.8 mg/dL 1.6 - 2 .6 mg/dL [facility] No Panel Informationon 09-08 Interpretation and review of laboratory results Abnormal [facility] PHOSPHATE, INORGANICon 09-08 Interpretation and review of laboratory results Normal [facility] Phosphate [Mass/Vol] 4.1 mg/dL 2.2 - 4 .6 mg/dL [facility] Phosphorous 4.1 mg/dL Normal 2.2-4.6 [facility] Comment on above: Performed By: #### M NATHANIEL BLOOM, TAVO, IPB ####[facility] (DEFAULT)[address] [place] [address] TACROLIMUS LEVEL, TROUGH (UT E DRUG LEVEL)on 09-08-2023 Interpretation and review of laboratory results Normal [facility] Tacrolimus (Bld) [Mass/Vol] 8.5 ng/mL [facility] Tacrolimus, Trough 8.5 ng/mL Normal Bone Susana ow Transplant: 4.0-12.0, Therapeutic: 5.0-15.0 [facility] Comment on above: Order Comment: Pleas e draw at specified interval PRIOR to dose. Do not hold dose to wait for level. Specimens batched twice per day, (M-F) and once per day weekendsMethod performed is a chemiluminescent microparticle immunoasssay on the [employer] i2000.The range is based on experience at [facility] and users should be aware that target concentrations vary widely depending on concomitant therapy, time post-transplant, and desired degree of immunosuppression. Performed By: #### T ACRO ####[facility] (DEFAULT)[address] [place] [address] CBC,PLATELETSon 09-07-2023 Hematocrit (Bld) [Volume fraction] 37.1 % Low 39.6-48.8 [facility] Comment on above: Performed By: #### H EMOGC ####[facility] (DEFAULT)[address] [place] [address] Hemoglobin (Bld) [Mass/Vol] 11.9 g/dL Low 13.4-16.8 [facility] Comment on above: Performed By: #### H EMOGC ####[facility] (DEFAULT)[address] [place] [address] MCV (RBC) [Entitic vol] 86.5 fL Normal 79.0-94.5 [facility] Comment on above: Performed By: #### H EMOGC ####[facility] (DEFAULT)[address] [place] [address] Mean Cell Hgb 27.7 pg Normal 26.1-33.3 [facility] Comment on above: Performed By: #### H EMOGC ####[facility] (DEFAULT)[address] [place] [address] Mean Cell Hgb Conc 32.1 g/dL Normal 31.9-36.5 [facility] Comment on above: Performed By: #### H EMO ####[facility] (DEFAULT)[address] [place] [address] Platelet mean volume (Bld) [Entitic vol] 9.6 fL Normal 8.7-12.3 [facility] Comment on above: Performed By: #### H EMO ####[facility] (DEFAULT)[address] [place] [address] Platelets (Bld) [#/Vol] 176 10*3/uL Normal 146-337 [facility] Comment on above: Performed By: #### H EMO ####[facility] (DEFAULT)[address] [place] [address] RBC (Bld) [#/Vol] 4.29 10*6/uL Low 4.38-5.83 [facility] Comment on above: Performed By: #### H EMO ####[facility] (DEFAULT)[address] [place] [address] RBC Distribution 13.5 % Normal 10.9-14.3 [facility] Comment on above: Performed By: #### H EMOGC ####[facility] (DEFAULT)[address] [place] [address] WBC (Bld) [#/Vol] 4.10 10*3/uL Normal 3.73-10.10 [facility] Comment on above: Performed By: #### H EMOGC ####[facility] (DEFAULT)[address] [place] [address] Erythrocyte distribution width (RBC) [Ratio] 13.5 % 10.9 - 14.3 % [facility] Hematocrit (Bld) [Volume fraction] 37.1 % Low 39.6 - 48.8 % [facility] Hemoglobin (Bld) [Mass/Vol] 11.9 g/dL Low 13.4 - 16.8 g/dL [facility] Interpretation and review of laboratory results Abnormal [facility] MCH (RBC) [Entitic mass] 27.7 pg 26.1 - 33.3 pg [facility] MCHC (RBC) [Mass/Vol] 32.1 g/dL 31.9 - 36.5 g/dL [facility] MCV (RBC) [Entitic vol] 86.5 fL 79.0 - 94.5 fL [facility] Platelet mean volume (Bld) [Entitic vol] 9.6 fL 8.7 - 12.3 fL [facility] Platelets (Bld) [#/Vol] 176 10*3/uL 146 - 337 K/uL [facility] RBC (Bld) [#/Vol] 4.29 10*6/uL Low [facility] WBC (Bld) [#/Vol] 4.10 10*3/uL 3.73 - 10. 10 K/uL [facility] CHEM 7 (LYTES,BUN,CREA,GLUC) on 09-07-2023 Anion gap [Moles/Vol] 13 mmol/L Normal 7-17 [facility] Comment on above: Performed By: #### M TJ BLOOM7, HFP, IPB ####[facility] (DEFAULT)[address] [facility] [address] Chloride [Moles/Vol] 113 mmol/L High 98-108 [facility] Comment on above: Performed By: #### M HELEN BLOOMM7, HFP, IPB ####[facility] (DEFAULT)[address] [place] [address] CO2 [Moles/Vol] 19 mmol/L Low 21-31 [facility] Comment on above: Performed By: #### Rod BLOOM CHM7, HFP, IPB ####[facility] (DEFAULT)[address] [place] [address] Creatinine [Mass/Vol] 1.22 mg/dL Normal 0.70-1.30 [facility] Comment on above: Performed By: #### Rod BLOOM CHM7, HFP, IPB ####[facility] (DEFAULT)[address] [place] [address] GFR/1.73 sq M.predicted among non-blacks MDRD (S/P/Bld) [Vol rate/Area] 71 mL/min/{1.73_m2} Normal >=60 [facility] Comment on above: Result Comment: Repo rted eGFR is based on the CKD-EPI 2020 equation using creatinine, age, and sex. Performed By: #### Rod BLOOM CHM7, HFP, IPB ####[facility] (DEFAULT)[address] [place] [address] Glucose [Mass/Vol] 107 mg/dL High 70-99 [facility] Comment on above: Performed By: #### Rod BLOOM CHMJessica, HFP, IPB ####[facility] (DEFAULT)[address] [place] [address] Osmolality [Osmolality] 295 mosm/kg Normal 278-305 [facility] Comment on above: Performed By: #### Rod BLOOM CHM7, HFP, IPB ####[facility] (DEFAULT)[address] [place] [address] Potassium [Moles/Vol] 3.9 mmol/L Normal 3.5-5.0 [facility] Comment on above: Performed By: #### Rod BLOOM CHM7, HFP, IPB ####[facility] (DEFAULT)[address] [place] [address] Sodium [Moles/Vol] 141 mmol/L Normal 135-145 [facility] Comment on above: Performed By: #### Rod BLOOM CHM7, HFP, IPB ####[facility] (DEFAULT)[address] [place] [address] Urea nitrogen [Mass/Vol] 13 mg/dL Normal 7-25 [facility] Comment on above: Performed By: #### M NATHANIEL BLOOM, HFP, IPB ####[facility] (DEFAULT)[address] [place] [address] Urea nitrogen/Creatinine [Mass ratio] 11 mg/mg Normal [facility] Comment on above: Performed By: #### M NATHANIEL BLOOM, HFP, IPB ####[facility] (DEFAULT)[address] [place] [address] Anion gap [Moles/Vol] 13 mmol/L 7 - 17 [facility] Chloride [Moles/Vol] 113 mmol/L High 98 - 10 8 mmol/L [facility] CO2 [Moles/Vol] 19 mmol/L Low 21 - 31 mmol/L [facility] Creatinine [Mass/Vol] 1.22 mg/dL 0.70 - 1.30 mg/dL [facility] eGFR, CKD-EPI, Male 72 - PINF [facility] Glucose [Mass/Vol] 107 mg/dL High 70 - 99 mg/dL [facility] Osmolality Calc [Osmolality] 295 [facility] Potassium [Moles/Vol] 3.9 mmol/L 3.5 - 5.0 mmol/L [facility] Sodium [Moles/Vol] 141 mmol/L 135 - 145 mmol/L [facility] Urea nitrogen [Mass/Vol] 13 mg/dL 7 - 25 mg/dL [facility] Urea nitrogen/Creatinine [Mass ratio] 11 mg/mg [facility] HEPATIC FUNCTION PANELon Albumin [Mass/Vol] 2.9 g/dL Low 3.5-5.0 [facility] Comment on above: Performed By: #### M NATHANIEL BLOOM, HFP, IPB ####[facility] (DEFAULT)[address] [place] [address] ALP [Catalytic activity/Vol] 111 U/L Normal 32-126 [facility] Comment on above: Performed By: #### M HELEN BLOOMM7, HFP, IPB ####[facility] (DEFAULT)[address] [place] [address] ALT [Catalytic activity/Vol] 18 U/L Normal 10-52 [facility] Comment on above: Performed By: #### M GO, CHM7, HFP, IPB ####[facility] (DEFAULT)[address] [place] [address] AST [Catalytic activity/Vol] 23 U/L Normal 10-39 [facility] Comment on above: Performed By: #### M GO, CHM7, HFP, IPB ####[facility] (DEFAULT)[address] [place] [address] Bilirubin [Mass/Vol] 0.8 mg/dL Normal <1.5 [facility] Comment on above: Performed By: #### M GO, CHM7, HFP, IPB ####[facility] (DEFAULT)[address] [place] [address] Bilirubin.indirect [Mass/Vol] 0.3 mg/dL High <0.3 [facility] Comment on above: Performed By: #### M GO, CHM7, HFP, IPB ####[facility] (DEFAULT)[address] [place] [address] Protein [Mass/Vol] 6.0 g/dL Low 6.4-8.3 [facility] Comment on above: Performed By: #### M GO, CHM7, HFP, IPB ####[facility] (DEFAULT)[address] [place] [address] Albumin [Mass/Vol] 2.9 g/dL Low 3.5 - 5.0 g/dL [facility] ALP [Catalytic activity/Vol] 111 U/L 32 - 126 U/L [facility] ALT [Catalytic activity/Vol] 18 U/L 10 - 52 U/L [facility] AST [Catalytic activity/Vol] 23 U/L 10 - 39 U/L [facility] Bilirubin [Mass/Vol] 0.8 mg/dL NINF - 1.5 mg/dL [facility] Bilirubin.direct [Mass/Vol] 0.3 mg/dL High NINF - 0.3 mg/dL [facility] Protein [Mass/Vol] 6.0 g/dL Low 6.4 - 8.3 g/dL [facility] MAGNESIUMon 09-07-2023 Magnesium [Mass/Vol] 1.7 mg/dL Normal 1.6-2.6 [facility] Comment on above: Performed By: #### M NATHANIEL BLOOM, HFP, IPB ####[facility] (DEFAULT)[address] [place] [address] Interpretation and review of laboratory results Normal [facility] Magnesium [Mass/Vol] 1.7 mg/dL 1.6 - 2 .6 mg/dL [facility] No Panel Informationon 09-07 Interpretation and review of laboratory results Abnormal [facility] PHOSPHATE, INORGANICon 09-07 Phosphorous 4.4 mg/dL Normal 2.2-4.6 [facility] Comment on above: Performed By: #### M HELEN BLOOMM7, HFP, IPB ####[facility] (DEFAULT)[address] [place] [address] Interpretation and review of laboratory results Normal [facility] Phosphate [Mass/Vol] 4.4 mg/dL 2.2 - 4 .6 mg/dL [facility] TACROLIMUS LEVEL, TROUGH (UT E DRUG LEVEL)Ordered By: Elizabeth Maldonado on 09-07-2023 Interpretation and review of laboratory results Normal [facility] Tacrolimus (Bld) [Mass/Vol] 7.8 ng/mL [facility] TACROLIMUS LEVEL, TROUGH (UT E DRUG LEVEL)on 09-07-2023 Tacrolimus, Trough 7.8 ng/mL Normal Bone Susana ow Transplant: 4.0-12.0, Therapeutic: 5.0-15.0 [facility] Comment on above: Order Comment: Dilan gregory draw at specified interval PRIOR to dose. Do not hold dose to wait for level. Specimens batched twice per day, (M-F) and once per day weekendsMethod performed is a chemiluminescent microparticle immunoasssay on the [employer] i2000.The range is based on experience at [facility] and users should be aware that target concentrations vary widely depending on concomitant therapy, time post-transplant, and desired degree of immunosuppression. Performed By: #### T ACRO ####[facility] (DEFAULT)[address] [place] [address] CBC,PLATELETSon 09-06-2023 Hematocrit (Bld) [Volume fraction] 38.4 % Low 39.6-48.8 [facility] Comment on above: Performed By: #### H EMOGC ####[facility] (DEFAULT)[address] [place] [address] Hemoglobin (Bld) [Mass/Vol] 11.9 g/dL Low 13.4-16.8 [facility] Comment on above: Performed By: #### H EMOGC ####[facility] (DEFAULT)[address] [place] [address] MCV (RBC) [Entitic vol] 85.9 fL Normal 79.0-94.5 [facility] Comment on above: Performed By: #### H EMOGC ####[facility] (DEFAULT)[address] [place] [address] Mean Cell Hgb 26.6 pg Normal 26.1-33.3 [facility] Comment on above: Performed By: #### H EMOGC ####[facility] (DEFAULT)[address] [place] [address] Mean Cell Hgb Conc 31.0 g/dL Low 31.9-36.5 [facility] Comment on above: Performed By: #### H EMOGC ####[facility] (DEFAULT)[address] [place] [address] Platelet mean volume (Bld) [Entitic vol] 9.7 fL Normal 8.7-12.3 [facility] Comment on above: Performed By: #### H EMO ####[facility] (DEFAULT)[address] [facility] [address] Platelets (Bld) [#/Vol] 181 10*3/uL Normal 146-337 [facility] Comment on above: Performed By: #### H EMO ####[facility] (DEFAULT)[address] [place] [address] RBC (Bld) [#/Vol] 4.47 10*6/uL Normal 4.38-5.83 [facility] Comment on above: Performed By: #### H [facility] ####[facility] (DEFAULT)[address] [place] [address] RBC Distribution 13.4 % Normal 10.9-14.3 [facility] Comment on above: Performed By: #### H [facility] ####[facility] (DEFAULT)[address] [place] [address] WBC (Bld) [#/Vol] 4.41 10*3/uL Normal 3.73-10.10 [facility] Comment on above: Performed By: #### H EMO ####[facility] (DEFAULT)[address] [place] [address] Erythrocyte distribution width (RBC) [Ratio] 13.4 % 10.9 - 14.3 % [facility] Hematocrit (Bld) [Volume fraction] 38.4 % Low 39.6 - 48.8 % [facility] Hemoglobin (Bld) [Mass/Vol] 11.9 g/dL Low 13.4 - 16.8 g/dL [facility] Interpretation and review of laboratory results Abnormal [facility] MCH (RBC) [Entitic mass] 26.6 pg 26.1 - 33.3 pg [facility] MCHC (RBC) [Mass/Vol] 31.0 g/dL Low 31.9 - 36.5 g/dL [facility] MCV (RBC) [Entitic vol] 85.9 fL 79.0 - 94.5 fL [facility] Platelet mean volume (Bld) [Entitic vol] 9.7 fL 8.7 - 12.3 fL [facility] Platelets (Bld) [#/Vol] 181 10*3/uL 146 - 337 K/uL [facility] RBC (Bld) [#/Vol] 4.47 10*6/uL [facility] WBC (Bld) [#/Vol] 4.41 10*3/uL 3.73 - 10. 10 K/uL [facility] CHEM 7 (LYTES,BUN,CREA,GLUC) on 09-06-2023 Anion gap [Moles/Vol] 14 mmol/L 7 - 17 mmol/L [facility] Chloride [Moles/Vol] 109 mmol/L High 98 - 10 8 mmol/L [facility] CO2 [Moles/Vol] 19 mmol/L Low 21 - 31 mmol/L [facility] Creatinine [Mass/Vol] 1.26 mg/dL 0.70 - 1.30 mg/dL [facility] eGFR, CKD-EPI, Male 70 - PINF [facility] Glucose [Mass/Vol] 114 mg/dL High 70 - 99 mg/dL [facility] Osmolality Calc [Osmolality] 291 [facility] Potassium [Moles/Vol] 4.1 mmol/L 3.5 - 5.0 mmol/L [facility] Sodium [Moles/Vol] 138 mmol/L 135 - 145 mmol/L [facility] Urea nitrogen [Mass/Vol] 16 mg/dL 7 - 25 mg/dL [facility] Urea nitrogen/Creatinine [Mass ratio] 13 mg/mg [facility] Anion gap [Moles/Vol] 14 mmol/L Normal 7-17 [facility] Comment on above: Performed By: #### M NATHANIEL BLOOM, HFP ####[facility] (DEFAULT)[address] [facility] [address] Chloride [Moles/Vol] 109 mmol/L High 98-108 [facility] Comment on above: Performed By: #### M NATHANIEL BLOOM, HFP ####[facility] (DEFAULT)[address] [place] [address] CO2 [Moles/Vol] 19 mmol/L Low 21-31 [facility] Comment on above: Performed By: #### M NATHANIEL BLOOM, HFP ####[facility] (DEFAULT)[address] [place] [address] Creatinine [Mass/Vol] 1.26 mg/dL Normal 0.70-1.30 [facility] Comment on above: Performed By: #### NATHANIEL RAMÍREZ, HFP ####[facility] (DEFAULT)[address] [place] [address], [place] [address] GFR/1.73 sq M.predicted among non-blacks MDRD (S/P/Bld) [Vol rate/Area] 69 mL/min/{1.73_m2} Normal >=60 [facility] Comment on above: Result Comment: Repo rted eGFR is based on the CKD-EPI 2020 equation using creatinine, age, and sex. Performed By: #### NATHANIEL RAMÍREZ, HFP ####[facility] (DEFAULT)[address] [facility] [place] [address] Glucose [Mass/Vol] 114 mg/dL High 70-99 [facility] Comment on above: Performed By: #### NATHANIEL RAMÍREZ, HFP ####[facility] (DEFAULT)[address] [place] [address], [place] [address] Osmolality [Osmolality] 291 mosm/kg Normal 278-305 [facility] Comment on above: Performed By: #### NATHANIEL RAMÍREZ, HFP ####[facility] (DEFAULT)[address] [place] [address] Potassium [Moles/Vol] 4.1 mmol/L Normal 3.5-5.0 [facility] Comment on above: Performed By: #### Rod BLOOM CHM7, HFP ####[facility] (DEFAULT)[address] [place] [address] Sodium [Moles/Vol] 138 mmol/L Normal 135-145 [facility] Comment on above: Performed By: #### Rod BLOOM CHM7, HFP ####[facility] (DEFAULT)[address] [place] [address] Urea nitrogen [Mass/Vol] 16 mg/dL Normal 7-25 [facility] Comment on above: Performed By: #### Rod BLOOM CHM7, HFP ####[facility] (DEFAULT)[address] [place] [address] Urea nitrogen/Creatinine [Mass ratio] 13 mg/mg Normal [facility] Comment on above: Performed By: #### Rod BLOOM CHM7, HFP ####[facility] (DEFAULT)[address] [place] [address] HEPATIC FUNCTION PANELon Albumin [Mass/Vol] 3.0 g/dL Low 3.5 - 5.0 g/dL [facility] ALP [Catalytic activity/Vol] 115 U/L 32 - 126 U/L [facility] ALT [Catalytic activity/Vol] 25 U/L 10 - 52 U/L [facility] AST [Catalytic activity/Vol] 31 U/L 10 - 39 U/L [facility] Bilirubin [Mass/Vol] 1.0 mg/dL NINF - 1.5 mg/dL [facility] Bilirubin.direct [Mass/Vol] 0.3 mg/dL High NINF - 0.3 mg/dL [facility] Protein [Mass/Vol] 6.3 g/dL Low 6.4 - 8.3 g/dL [facility] Albumin [Mass/Vol] 3.0 g/dL Low 3.5-5.0 [facility] Comment on above: Performed By: #### M MERLE CHM7, HFP ####[facility] (DEFAULT)[address] [place] [address] ALP [Catalytic activity/Vol] 115 U/L Normal 32-126 [facility] Comment on above: Performed By: #### M GO CHM7, HFP ####[facility] (DEFAULT)[address] [place] [address] ALT [Catalytic activity/Vol] 25 U/L Normal 10-52 [facility] Comment on above: Performed By: #### M GO CHM7, HFP ####[facility] (DEFAULT)[address] [place] [address] AST [Catalytic activity/Vol] 31 U/L Normal 10-39 [facility] Comment on above: Performed By: #### M GO CHM7, HFP ####[facility] (DEFAULT)[address] [place] [address] Bilirubin [Mass/Vol] 1.0 mg/dL Normal <1.5 [facility] Comment on above: Performed By: #### M GO CHM7, HFP ####[facility] (DEFAULT)[address] [place] [address] Bilirubin.indirect [Mass/Vol] 0.3 mg/dL High <0.3 [facility] Comment on above: Performed By: #### M GO, CHM7, HFP ####[facility] (DEFAULT)[address] [place] [address] Protein [Mass/Vol] 6.3 g/dL Low 6.4-8.3 [facility] Comment on above: Performed By: #### M GO, CHM7, HFP ####[facility] (DEFAULT)[address] [place] [address] MAGNESIUMon 09-06-2023 Interpretation and review of laboratory results Normal [facility] Magnesium [Mass/Vol] 2.0 mg/dL 1.6 - 2 .6 mg/dL [facility] Magnesium [Mass/Vol] 2.0 mg/dL Normal 1.6-2.6 [facility] Comment on above: Performed By: #### M , M7, [facility] ####[facility] (DEFAULT)[address] [place] [address] No Panel Informationon 09-06 Interpretation and review of laboratory results Abnormal [facility] TACROLIMUS LEVEL, TROUGH (UT E DRUG LEVEL)on 09-06-2023 Interpretation and review of laboratory results Normal [facility] Tacrolimus (Bld) [Mass/Vol] 6.7 ng/mL [facility] Tacrolimus, Trough 6.7 ng/mL Normal Bone Susana ow Transplant: 4.0-12.0, Therapeutic: 5.0-15.0 [facility] Comment on above: Order Comment: Pleas e draw at specified interval PRIOR to dose. Do not hold dose to wait for level. Specimens batched twice per day, (M-F) and once per day weekendsMethod performed is a chemiluminescent microparticle immunoasssay on the [employer] i2000.The range is based on experience at [facility] and users should be aware that target concentrations vary widely depending on concomitant therapy, time post-transplant, and desired degree of immunosuppression. Performed By: #### T ACRO ####[facility] (DEFAULT)[address] [place] [address] CBC,PLATELETSon 09-05-2023 Hematocrit (Bld) [Volume fraction] 35.6 % Low 39.6-48.8 [facility] Comment on above: Performed By: #### H EMO ####[facility] (DEFAULT)[address] [place] [address] Hemoglobin (Bld) [Mass/Vol] 11.4 g/dL Low 13.4-16.8 [facility] Comment on above: Performed By: #### H EMOGC ####[facility] (DEFAULT)[address] [place] [address] MCV (RBC) [Entitic vol] 86.0 fL Normal 79.0-94.5 [facility] Comment on above: Performed By: #### H EMOGC ####[facility] (DEFAULT)[address] [place] [address] Mean Cell Hgb 27.5 pg Normal 26.1-33.3 [facility] Comment on above: Performed By: #### H EMOGC ####[facility] (DEFAULT)[address] [place] [address] Mean Cell Hgb Conc 32.0 g/dL Normal 31.9-36.5 [facility] Comment on above: Performed By: #### H EMOGC ####[facility] (DEFAULT)[address] [place] [address] Platelet mean volume (Bld) [Entitic vol] 10.0 fL Normal 8.7-12.3 [facility] Comment on above: Performed By: #### H EMOGC ####[facility] (DEFAULT)[address] [place] [address] Platelets (Bld) [#/Vol] 170 10*3/uL Normal 146-337 [facility] Comment on above: Performed By: #### H EMOGC ####[facility] (DEFAULT)[address] [place] [address] RBC (Bld) [#/Vol] 4.14 10*6/uL Low 4.38-5.83 [facility] Comment on above: Performed By: #### H EMOGC ####[facility] (DEFAULT)[address] [place] [address] RBC Distribution 13.5 % Normal 10.9-14.3 [facility] Comment on above: Performed By: #### H [facility] ####[facility] (DEFAULT)[address] [place] [address] WBC (Bld) [#/Vol] 4.24 10*3/uL Normal 3.73-10.10 [facility] Comment on above: Performed By: #### H [facility] ####[facility] (DEFAULT)[address] [place] [address] Erythrocyte distribution width (RBC) [Ratio] 13.5 % 10.9 - 14.3 % [facility] Hematocrit (Bld) [Volume fraction] 35.6 % Low 39.6 - 48.8 % [facility] Hemoglobin (Bld) [Mass/Vol] 11.4 g/dL Low 13.4 - 16.8 g/dL [facility] Interpretation and review of laboratory results Abnormal [facility] MCH (RBC) [Entitic mass] 27.5 pg 26.1 - 33.3 pg [facility] MCHC (RBC) [Mass/Vol] 32.0 g/dL 31.9 - 36.5 g/dL [facility] MCV (RBC) [Entitic vol] 86.0 fL 79.0 - 94.5 fL [facility] Platelet mean volume (Bld) [Entitic vol] 10.0 fL 8.7 - 12.3 fL [facility] Platelets (Bld) [#/Vol] 170 10*3/uL 146 - 337 K/uL [facility] RBC (Bld) [#/Vol] 4.14 10*6/uL Low [facility] WBC (Bld) [#/Vol] 4.24 10*3/uL 3.73 - 10. 10 K/uL [facility] CHEM 7 (LYTES,BUN,CREA,GLUC) on 09-05-2023 Anion gap [Moles/Vol] 12 mmol/L Normal 7-17 [facility] Comment on above: Performed By: #### M NATHANIEL BLOOM, HFP ####[facility] (DEFAULT)[address] [place] [address] Chloride [Moles/Vol] 107 mmol/L Normal 98-108 [facility] Comment on above: Performed By: #### M NATHANIEL BLOOM, HFP ####[facility] (DEFAULT)[address] [facility] [address] CO2 [Moles/Vol] 20 mmol/L Low 21-31 [facility] Comment on above: Performed By: #### M NATHANIEL BLOOM, HFP ####[facility] (DEFAULT)[address] [place] [address], [place] [address] Creatinine [Mass/Vol] 1.43 mg/dL High 0.70-1.30 [facility] Comment on above: Performed By: #### NATHANIEL RAMÍREZ, HFP ####[facility] (DEFAULT)[address] [facility] [address] GFR/1.73 sq M.predicted among non-blacks MDRD (S/P/Bld) [Vol rate/Area] 59 mL/min/{1.73_m2} Low >=60 [facility] Comment on above: Result Comment: Repo rted eGFR is based on the CKD-EPI 2020 equation using creatinine, age, and sex. Performed By: #### M NATHANIEL BLOOM, HFP ####[facility] (DEFAULT)[address] [facility] [address] Glucose [Mass/Vol] 111 mg/dL High 70-99 [facility] Comment on above: Performed By: #### M NATHANIEL BLOOM, HFP ####[facility] (DEFAULT)[address] [facility] [address] Osmolality [Osmolality] 286 mosm/kg Normal 278-305 [facility] Comment on above: Performed By: #### M NATHANIEL BLOOM, HFP ####[facility] (DEFAULT)[address] [place] [address] Potassium [Moles/Vol] 4.2 mmol/L Normal 3.5-5.0 [facility] Comment on above: Performed By: #### NATHANIEL RAMÍRZE, HFP ####[facility] (DEFAULT)[address] [place] [address] Sodium [Moles/Vol] 135 mmol/L Normal 135-145 [facility] Comment on above: Performed By: #### NATHANIEL RAMÍREZ, HFP ####[facility] (DEFAULT)[address] [facility] [address] Urea nitrogen [Mass/Vol] 18 mg/dL Normal 7-25 [facility] Comment on above: Performed By: #### NATHANIEL RAMÍREZ, HFP ####[facility] (DEFAULT)[address] [facility] [address] Urea nitrogen/Creatinine [Mass ratio] 13 mg/mg Normal [facility] Comment on above: Performed By: #### NATHANIEL RAMÍREZ, HFP ####[facility] (DEFAULT)[address] [place] [address] Anion gap [Moles/Vol] 12 mmol/L 7 - 17 mmol/L [facility] Chloride [Moles/Vol] 107 mmol/L 98 - 10 8 mmol/L [facility] CO2 [Moles/Vol] 20 mmol/L Low 21 - 31 mmol/L [facility] Creatinine [Mass/Vol] 1.43 mg/dL High 0.70 - 1.30 mg/dL [facility] eGFR, CKD-EPI, Male 60 Low - PINF [facility] Glucose [Mass/Vol] 111 mg/dL High 70 - 99 mg/dL [facility] Osmolality Calc [Osmolality] 286 [facility] Potassium [Moles/Vol] 4.2 mmol/L 3.5 - 5.0 mmol/L [facility] Sodium [Moles/Vol] 135 mmol/L 135 - 145 mmol/L [facility] Urea nitrogen [Mass/Vol] 18 mg/dL 7 - 25 mg/dL [facility] Urea nitrogen/Creatinine [Mass ratio] 13 mg/mg [facility] CONTINUOUS CARDIAC MONITORIN G STRIPon 09-05-2023 [facility] HEPATIC FUNCTION PANELon Albumin [Mass/Vol] 2.8 g/dL Low 3.5-5.0 [facility] Comment on above: Performed By: #### M MERLE CHM7, HFP ####[facility] (DEFAULT)[address] [place] [address] ALP [Catalytic activity/Vol] 103 U/L Normal 32-126 [facility] Comment on above: Performed By: #### Rod BLOOM CHM7, HFP ####[facility] (DEFAULT)[address] [place] [address] ALT [Catalytic activity/Vol] 26 U/L Normal 10-52 [facility] Comment on above: Performed By: #### M MERLE CHM7, HFP ####[facility] (DEFAULT)[address] [place] [address] AST [Catalytic activity/Vol] 38 U/L Normal 10-39 [facility] Comment on above: Performed By: #### M MERLE CHM7, HFP ####[facility] (DEFAULT)[address] [place] [address] Bilirubin [Mass/Vol] 0.9 mg/dL Normal <1.5 [facility] Comment on above: Performed By: #### M MERLE CHM7, HFP ####[facility] (DEFAULT)[address] [place] [address] Bilirubin.indirect [Mass/Vol] 0.1 mg/dL Normal <0.3 [facility] Comment on above: Performed By: #### M GO CHM7, HFP ####[facility] (DEFAULT)[address] [place] [address] Protein [Mass/Vol] 6.1 g/dL Low 6.4-8.3 [facility] Comment on above: Performed By: #### M MERLE CHM7, HFP ####[facility] (DEFAULT)[address] [place] [address] Albumin [Mass/Vol] 2.8 g/dL Low 3.5 - 5.0 g/dL [facility] ALP [Catalytic activity/Vol] 103 U/L 32 - 126 U/L [facility] ALT [Catalytic activity/Vol] 26 U/L 10 - 52 U/L [facility] AST [Catalytic activity/Vol] 38 U/L 10 - 39 U/L [facility] Bilirubin [Mass/Vol] 0.9 mg/dL NINF - 1.5 mg/dL [facility] Bilirubin.direct [Mass/Vol] 0.1 mg/dL NINF - 0.3 mg/dL [facility] Protein [Mass/Vol] 6.1 g/dL Low 6.4 - 8.3 g/dL [facility] HISTOPLASMA ANTIGEN, FLUIDon 09-05-2023 FH SOURCE BAL RML [facility] Histo FLD interpretation Negative [facility] Histoplasma Antigen, FLUID Not detected ng/mL [facility] HISTOPLASMA CAPSULATUM/BLAST OMYCES SPECIES,PCR FLUIDon 09-05-2023 HISTO/BLASTO RESULT Negative Not Applicable [facility] Specimen source Nom (Unsp spec) BAL RML [facility] IMMUNOPHENOTYPING, TISSUE/FL UIDon 09-05-2023 BKR DX CODE Use Ordering [facility] Flow Interpretation See Comment [facility] Flow Interpreted by: Yossi Perla MD, PhD [facility] MAGNESIUMon 09-05-2023 Magnesium [Mass/Vol] 1.7 mg/dL Normal 1.6-2.6 [facility] Comment on above: Performed By: #### M GO, CHM7, HFP ####[facility] (DEFAULT)[address] [place] [address] Interpretation and review of laboratory results Normal [facility] Magnesium [Mass/Vol] 1.7 mg/dL 1.6 - 2 .6 mg/dL [facility] No Panel Informationon 09-05 Interpretation and review of laboratory results Abnormal [facility] TACROLIMUS LEVEL, TROUGH (UT E DRUG LEVEL)Ordered By: Raymundo Mehta on 09-05-2023 Interpretation and review of laboratory results Normal [facility] Tacrolimus (Bld) [Mass/Vol] 5.3 ng/mL [facility] TACROLIMUS LEVEL, TROUGH (UT E DRUG LEVEL)on 09-05-2023 Tacrolimus, Trough 5.3 ng/mL Normal Bone Susana ow Transplant: 4.0-12.0, Therapeutic: 5.0-15.0 [facility] Comment on above: Order Comment: Pleas e draw at specified interval PRIOR to dose. Do not hold dose to wait for level. Specimens batched twice per day, (M-F) and once per day weekendsMethod performed is a chemiluminescent microparticle immunoasssay on the [employer] i2000.The range is based on experience at [facility] and users should be aware that target concentrations vary widely depending on concomitant therapy, time post-transplant, and desired degree of immunosuppression. Performed By: #### T ACRO ####[facility] (DEFAULT)[address] [place] [address] ARTERIAL BLOOD GAS (FULL PUENTE EL)on 09-04-2023 Base Excess -1.2 mmol/L Normal -3.0-3.0 [facility] Comment on above: Performed By: #### G ASALL ####[facility] (DEFAULT)[address] [place] [address] Carboxyhemoglobin 0.7 % Normal <=1.5 [facility] Comment on above: Performed By: #### Vale UNDERWOOD ####[facility] (DEFAULT)[address] [place] [address] Glucose [Mass/Vol] 159 mg/dL High 70-99 [facility] Comment on above: Performed By: #### Vale UNDERWOOD ####[facility] (DEFAULT)[address] [place] [address] HCO3 (Bld) [Moles/Vol] 22 mmol/L Normal 22-28 [facility] Comment on above: Performed By: #### Vale UNDERWOOD ####[facility] (DEFAULT)[address] [place] [address] Hematocrit (Bld) [Volume fraction] 38.0 % Low 40.2-50.4 [facility] Comment on above: Performed By: #### Vale UNDERWOOD ####[facility] (DEFAULT)[address] [facility] [address] Hemoglobin (Bld) [Mass/Vol] 12.6 g/dL Low 13.4-16.8 [facility] Comment on above: Performed By: #### Vale UNDERWOOD ####[facility] (DEFAULT)[address] [place] [address] Ionized Calcium, Whole Blood 4.79 mg/dL Normal 4.60-5.30 [facility] Comment on above: Performed By: #### Vale UNDERWOOD ####[facility] (DEFAULT)[address] [place] [address] Lactate, Whole Blood 2.0 mmol/L High 0.5-1.6 [facility] Comment on above: Performed By: #### Vale UNDERWOOD ####[facility] (DEFAULT)[address] [place] [address] Methemoglobin 0.0 % Normal <=1.5 [facility] Comment on above: Performed By: #### Vale UNDERWOOD ####[facility] (DEFAULT)[address] [place] [address] Oxyhemoglobin 91 % Low 94-98 [facility] Comment on above: Performed By: #### Vale UNDERWOOD ####[facility] (DEFAULT)[address] [place], [place] [address], [place] [address] pCO2 30 mm Hg Low 32-48 [facility] Comment on above: Performed By: #### Vale UNDERWOOD ####[facility] (DEFAULT)[address] [place] [address], [place] [address] pH (Bld) 7.48 [pH] High 7.35-7.45 [facility] Comment on above: Performed By: #### Vale UNDERWOOD ####[facility] (DEFAULT)[address] [place] [address], [place] [address] pO2 62 mm Hg Low 83-108 [facility] Comment on above: Performed By: #### Vale UNDERWOOD ####[facility] (DEFAULT)[address] [place] [address], [place] [address] Potassium [Moles/Vol] 4.2 mmol/L Normal 3.5-5.0 [facility] Comment on above: Performed By: ###Walter UNDERWOOD ####[facility] (DEFAULT)[address] [place] [address], [place] [address] sO2 92 % Low 94-98 [facility] Comment on above: Performed By: #### Vale UNDERWOOD ####[facility] (DEFAULT)[address] [place] [address], [place] [address] Sodium [Moles/Vol] 130 mmol/L Low 135-145 [facility] Comment on above: Performed By: #### Vale UNDERWOOD ####[facility] (DEFAULT)[address] [place] [address] [place] [address] Specimen type Nom (Spec) Arterial Normal [facility] Comment on above: Performed By: #### Vale UNDERWOOD ####[facility] (DEFAULT)[address] [place] [address] [place] [address] Base excess Calc (Bld) [Moles/Vol] -1.2000 mmol/L -3.0 - 3.0 mmol/L [facility] Calcium.ionized (Bld) [Mass/Vol] 4.79 mg/dL 4.60 - 5.30 mg/dL [facility] Carboxyhemoglobin (Bld) [Mass fraction] 0.7 % NINF - 1.5 % [facility] CO2 (Bld) [Partial pressure] 30 mm[Hg] Low [facility] Glucose [Mass/Vol] 159 mg/dL High 70 - 99 mg/dL [facility] HCO3 (Bld) [Moles/Vol] 22 mmol/L 22 - 28 mmol/L [facility] Hematocrit (Bld) [Volume fraction] 38.0 % Low 40.2 - 50.4 % [facility] Hemoglobin (Bld) [Mass/Vol] 12.6 g/dL Low 13.4 - 16.8 g/dL [facility] Interpretation and review of laboratory results Abnormal [facility] Lactate [Moles/Vol] 2.0 mmol/L High 0.5 - 1. 6 mmol/L [facility] Methemoglobin (Bld) [Mass fraction] 0.0 % NINF - 1.5 % [facility] Oxygen (Bld) [Partial pressure] 62 mm[Hg] Low [facility] Oxygen saturation in Blood 92 % Low 94 - 98 % [facility] Oxyhemoglobin 91 % Low 94 - 98 % [facility] pH (Bld) 7.48 [pH] High 7.35 - 7.45 [facility] Potassium [Moles/Vol] 4.2 mmol/L 3.5 - 5.0 mmol/L [facility] Sodium [Moles/Vol] 130 mmol/L Low 135 - 145 mmol/L [facility] Specimen source Nom (Unsp spec) Arterial [facility] Bacteria identified Respirat ory culture Nom (Unsp spec)on 09-04-2023 Bacteria identified Cx Nom (Unsp spec) NO GROWTH DAY [facility] Microscopic observation Other stain Nom (Unsp spec) Cytocentrifuge preparation [facility] Microscopic observation Other stain Nom (Unsp spec) Neutrophils, Rare [facility] Microscopic observation Other stain Nom (Unsp spec) Red Blood Cells Present [facility] Microscopic observation Other stain Nom (Unsp spec) No organisms seen [facility] Bacteria identified Respirat ory culture Nom (Unsp spec)Ordered By: Jose Saglado on 09-04-2023 Bacteria identified Cx Nom (Unsp spec) NO GROWTH DAY 2 OF 2 [facility] Microscopic observation Other stain Nom (Unsp spec) Cytocentrifuge preparation [facility] Microscopic observation Other stain Nom (Unsp spec) Neutrophils, Moderate [facility] Microscopic observation Other stain Nom (Unsp spec) Red Blood Cells Present [facility] Microscopic observation Other stain Nom (Unsp spec) No organisms seen [facility] CBC,PLATELETSon 09-04-2023 Hematocrit (Bld) [Volume fraction] 38.7 % Low 39.6-48.8 [facility] Comment on above: Performed By: #### H [facility] ####[facility] (DEFAULT)[address] [place] [address] Hemoglobin (Bld) [Mass/Vol] 12.3 g/dL Low 13.4-16.8 [facility] Comment on above: Performed By: #### H EMO ####[facility] (DEFAULT)[address] [place] [address] MCV (RBC) [Entitic vol] 87.8 fL Normal 79.0-94.5 [facility] Comment on above: Performed By: #### H EMO ####[facility] (DEFAULT)[address] [place] [address] Mean Cell Hgb 27.9 pg Normal 26.1-33.3 [facility] Comment on above: Performed By: #### H EMOGC ####[facility] (DEFAULT)[address] [place] [address] Mean Cell Hgb Conc 31.8 g/dL Low 31.9-36.5 [facility] Comment on above: Performed By: #### H EMOGC ####[facility] (DEFAULT)[address] [facility] [address] Platelet mean volume (Bld) [Entitic vol] 9.8 fL Normal 8.7-12.3 [facility] Comment on above: Performed By: #### H EMOGC ####[facility] (DEFAULT)[address] [place] [address] Platelets (Bld) [#/Vol] 173 10*3/uL Normal 146-337 [facility] Comment on above: Performed By: #### H EMOGC ####[facility] (DEFAULT)[address] [facility] [address] RBC (Bld) [#/Vol] 4.41 10*6/uL Normal 4.38-5.83 [facility] Comment on above: Performed By: #### H EMOGC ####[facility] (DEFAULT)[address] [place] [address] RBC Distribution 13.2 % Normal 10.9-14.3 [facility] Comment on above: Performed By: #### H EMOGC ####[facility] (DEFAULT)[address] [place] [address] WBC (Bld) [#/Vol] 4.57 10*3/uL Normal 3.73-10.10 [facility] Comment on above: Performed By: #### H EMOGC ####[facility] (DEFAULT)[address] [place] [address] Erythrocyte distribution width (RBC) [Ratio] 13.2 % 10.9 - 14.3 % [facility] Hematocrit (Bld) [Volume fraction] 38.7 % Low 39.6 - 48.8 % [facility] Hemoglobin (Bld) [Mass/Vol] 12.3 g/dL Low 13.4 - 16.8 g/dL [facility] Interpretation and review of laboratory results Abnormal [facility] MCH (RBC) [Entitic mass] 27.9 pg 26.1 - 33.3 pg [facility] MCHC (RBC) [Mass/Vol] 31.8 g/dL Low 31.9 - 36.5 g/dL [facility] MCV (RBC) [Entitic vol] 87.8 fL 79.0 - 94.5 fL [facility] Platelet mean volume (Bld) [Entitic vol] 9.8 fL 8.7 - 12.3 fL [facility] Platelets (Bld) [#/Vol] 173 10*3/uL 146 - 337 K/uL [facility] RBC (Bld) [#/Vol] 4.41 10*6/uL [facility] WBC (Bld) [#/Vol] 4.57 10*3/uL 3.73 - 10. 10 K/uL [facility] CHEM 7 (LYTES,BUN,CREA,GLUC) on 09-04-2023 Anion gap [Moles/Vol] 16 mmol/L Normal 7-17 [facility] Comment on above: Performed By: #### NATHANIEL RAMÍREZ, HFP ####[facility] (DEFAULT)[address] [place] [address] Chloride [Moles/Vol] 104 mmol/L Normal 98-108 [facility] Comment on above: Performed By: #### NATHANIEL RAMÍREZ, HFP ####[facility] (DEFAULT)[address] [place] [address] CO2 [Moles/Vol] 18 mmol/L Low 21-31 [facility] Comment on above: Performed By: #### NATHANIEL RAMÍREZ, HFP ####[facility] (DEFAULT)[address] [place] [address] Creatinine [Mass/Vol] 1.22 mg/dL Normal 0.70-1.30 [facility] Comment on above: Performed By: #### NATHANIEL RAMÍREZ, HFP ####[facility] (DEFAULT)[address] [place] [address] GFR/1.73 sq M.predicted among non-blacks MDRD (S/P/Bld) [Vol rate/Area] 71 mL/min/{1.73_m2} Normal >=60 [facility] Comment on above: Result Comment: Repo rted eGFR is based on the CKD-EPI 2020 equation using creatinine, age, and sex. Performed By: #### NATHANIEL RAMÍREZ, HFP ####[facility] (DEFAULT)[address] [facility] [address] Glucose [Mass/Vol] 124 mg/dL High 70-99 [facility] Comment on above: Performed By: #### NATHANIEL RAMÍREZ, HFP ####[facility] (DEFAULT)[address] [place] [address] Osmolality [Osmolality] 284 mosm/kg Normal 278-305 [facility] Comment on above: Performed By: #### NATHANIEL RAMÍREZ, HFP ####[facility] (DEFAULT)[address] [place] [address] Potassium [Moles/Vol] 3.9 mmol/L Normal 3.5-5.0 [facility] Comment on above: Performed By: #### NATHANIEL RAMÍREZ, HFP ####[facility] (DEFAULT)[address] [place] [address] Sodium [Moles/Vol] 134 mmol/L Low 135-145 [facility] Comment on above: Performed By: #### NATHANIEL RAMÍREZ, HFP ####[facility] (DEFAULT)[address] [place] [address] Urea nitrogen [Mass/Vol] 15 mg/dL Normal 7-25 [facility] Comment on above: Performed By: #### M NATHANIEL BLOOM, HFP ####[facility] (DEFAULT)[address] [place] [address] Urea nitrogen/Creatinine [Mass ratio] 12 mg/mg Normal [facility] Comment on above: Performed By: #### M NATHANIEL BLOOM, HFP ####[facility] (DEFAULT)[address] [place] [address] Anion gap [Moles/Vol] 16 mmol/L 7 - 17 [facility]L [facility] Chloride [Moles/Vol] 104 mmol/L 98 - 10 8 mmol/L [facility] CO2 [Moles/Vol] 18 mmol/L Low 21 - 31 mmol/L [facility] Creatinine [Mass/Vol] 1.22 mg/dL 0.70 - 1.30 mg/dL [facility] eGFR, CKD-EPI, Male 72 - PINF [facility] Glucose [Mass/Vol] 124 mg/dL High 70 - 99 mg/dL [facility] Osmolality Calc [Osmolality] 284 [facility] Potassium [Moles/Vol] 3.9 mmol/L 3.5 - 5.0 mmol/L [facility] Sodium [Moles/Vol] 134 mmol/L Low 135 - 145 mmol/L [facility] Urea nitrogen [Mass/Vol] 15 mg/dL 7 - 25 mg/dL [facility] Urea nitrogen/Creatinine [Mass ratio] 12 mg/mg [facility] CMV PCR,FLUIDS,URINE,EYE ETC on 09-04-2023 Specimen source Nom (Unsp spec) BAL LLL [facility] Specimen source Nom (Unsp spec) BAL RML [facility] HEPATIC FUNCTION PANELon Albumin [Mass/Vol] 3.0 g/dL Low 3.5-5.0 [facility] Comment on above: Performed By: #### M GO, CHM7, HFP ####[facility] (DEFAULT)[address] [place] [address] ALP [Catalytic activity/Vol] 112 U/L Normal 32-126 [facility] Comment on above: Performed By: #### M MERLE CHM7, HFP ####[facility] (DEFAULT)[address] [place] [address] ALT [Catalytic activity/Vol] 22 U/L Normal 10-52 [facility] Comment on above: Performed By: #### M MERLE CHM7, HFP ####[facility] (DEFAULT)[address] [place] [address] AST [Catalytic activity/Vol] 30 U/L Normal 10-39 [facility] Comment on above: Performed By: #### M MERLE CHM7, HFP ####[facility] (DEFAULT)[address] [place] [address] Bilirubin [Mass/Vol] 1.2 mg/dL Normal <1.5 [facility] Comment on above: Performed By: #### M MERLE CHM7, HFP ####[facility] (DEFAULT)[address] [place] [address] Bilirubin.indirect [Mass/Vol] 0.4 mg/dL High <0.3 [facility] Comment on above: Performed By: #### M MERLE CHM7, HFP ####[facility] (DEFAULT)[address] [place] [address] Protein [Mass/Vol] 6.4 g/dL Normal 6.4-8.3 [facility] Comment on above: Performed By: #### M MERLE CHM7, HFP ####[facility] (DEFAULT)[address] [place] [address] Albumin [Mass/Vol] 3.0 g/dL Low 3.5 - 5.0 g/dL [facility] ALP [Catalytic activity/Vol] 112 U/L 32 - 126 U/L [facility] ALT [Catalytic activity/Vol] 22 U/L 10 - 52 U/L [facility] AST [Catalytic activity/Vol] 30 U/L 10 - 39 U/L [facility] Bilirubin [Mass/Vol] 1.2 mg/dL NINF - 1.5 mg/dL [facility] Bilirubin.direct [Mass/Vol] 0.4 mg/dL High NINF - 0.3 mg/dL [facility] Protein [Mass/Vol] 6.4 g/dL 6.4 - 8.3 g/dL [facility] LEGIONELLA PCRon 09-04-2023 Legionella sp rRNA Probe Ql (Unsp spec) Negative Not Applicable [facility] Specimen source Nom (Unsp spec) BAL RML [facility] - Microbiology an d Antimicrobial susceptibilityon 09-04-2023 CMV DNA ESTELITA+probe Ql (Unsp spec) Negative Negative [facility] MAGNESIUMon 09-04-2023 Magnesium [Mass/Vol] 1.4 mg/dL Low 1.6-2.6 [facility] Comment on above: Performed By: #### M , M7, [facility] ####[facility] (DEFAULT)[address] [place] [address] Magnesium [Mass/Vol] 1.4 mg/dL Low 1.6 - 2 .6 mg/dL [facility] No Panel Informationon 09-04 Annotation comment [Interpretation] Narrative DNR [facility] PN Report Status DNR [facility] Pneumocystis jiroveci,PCR result Negative Not Applicable [facility] Interpretation and review of laboratory results Abnormal [facility] PNEUMOCYSTIS JIROVECI,PCRon 09-04-2023 Specimen source Nom (Unsp spec) BAL LLL [facility] Specimen source Nom (Unsp spec) BAL RML [facility] Portable XR Chest Viewson RADIOLOGY RADIOLOGY [facility] Radiology Study observation (narrative) [facility] Portable XR Chest ViewsOrder ed By: Joanie Nugent on 09-04-2023 [facility] Work Phone: TACROLIMUS LEVEL, TROUGH (UT E DRUG LEVEL)on 09-04-2023 Interpretation and review of laboratory results Abnormal [facility] Tacrolimus (Bld) [Mass/Vol] 3.6 ng/mL Low [facility] Tacrolimus, Trough 3.6 ng/mL Low Bone Susana ow Transplant: 4.0-12.0, Therapeutic: 5.0-15.0 [facility] Comment on above: Order Comment: Pleas e draw at specified interval PRIOR to dose. Do not hold dose to wait for level. Specimens batched twice per day, (M-) and once per day weekendsMethod performed is a chemiluminescent microparticle immunoasssay on the [employer] i2000.The range is based on experience at [facility] and users should be aware that target concentrations vary widely depending on concomitant therapy, time post-transplant, and desired degree of immunosuppression. Performed By: #### T ACRO ####[facility] (DEFAULT)[address] [place] [address] XR CHEST PORTABLEon 09-04-20 23 XR CHEST PORTABLE Normal [facility] ASPERGILLUS ANTIGEN, BALon 1 Galactomannan Ag IA Qn (Unsp spec) <0.500 [facility] Galactomannan Ag IA Qn (Unsp spec) <0.500 [facility] BAL CONSULTOrdered By: Noa Peralta on 09-03-2023 ALVEOLAR MACROPHAGES 32 % [facility] Work Phone: Bal comments Correlation with microbiology stains and cultures is recommended. [facility] Work Phone: Bal Diff Quik Stain Quality Check Acceptable [facility] Work Phone: BKR BAL INTERPRETATION Cellular specimen comprised of alveolar macrophages and small lymphocytes. No definitive microorganisms are observed. Moderate degenerative changes. [facility] Work Phone: BKR DX CODE Use Ordering [facility] Work Phone: Eosinophils Patterson stain Ql (Unsp spec) 0 % [facility] Work Phone: Lymphocytes/100 WBC (Bld) 57 % [facility] Work Phone: Neutrophils/100 WBC Manual cnt (Bronch spec) 11 % [facility] Work Phone: Pathologist review Jame (Unsp spec) [Interp] Leonardo Peralta MD [facility] Work Phone: [facility] Work Phone: BAL CONSULTon 09-03-2023 ALVEOLAR MACROPHAGES 33 % [facility] Bal comments Correlation with microbiology stains and cultures is recommended. Correlation with viral studies is recommended. [facility] Bal Diff Quik Stain Quality Check Acceptable [facility] BKR BAL INTERPRETATION Cellular specimen comprised of alveolar macrophages and small lymphocytes. No definitive microorganisms are observed. Rare degenerating cells with changes suggestive of viral cytopathic effect are noted. Moderate degenerative changes. [facility] BKR DX CODE Use Ordering [facility] Eosinophils Patterson stain Ql (Unsp spec) 0 % [facility] Lymphocytes/100 WBC (Bld) 49 % [facility] Neutrophils/100 WBC Manual cnt (Bronch spec) 18 % [facility] Pathologist review Jame (Unsp spec) [Interp] Leonardo Peralta MD [facility] BRONCHOSCOPYon 09-03-2023 LAB, [facility] CBC,PLATELETSon 09-03-2023 Hematocrit (Bld) [Volume fraction] 39.6 % Normal 39.6-48.8 [facility] Comment on above: Performed By: #### H [facility] ####[facility] (DEFAULT)[address] [place] [address] Hemoglobin (Bld) [Mass/Vol] 12.8 g/dL Low 13.4-16.8 [facility] Comment on above: Performed By: #### H EMOGC ####[facility] (DEFAULT)[address] [place] [address] MCV (RBC) [Entitic vol] 85.9 fL Normal 79.0-94.5 [facility] Comment on above: Performed By: #### H EMOGC ####[facility] (DEFAULT)[address] [place] [address] Mean Cell Hgb 27.8 pg Normal 26.1-33.3 [facility] Comment on above: Performed By: #### H EMOGC ####[facility] (DEFAULT)[address] [place] [address] Mean Cell Hgb Conc 32.3 g/dL Normal 31.9-36.5 [facility] Comment on above: Performed By: #### H EMOGC ####[facility] (DEFAULT)[address] [place] [address] Platelet mean volume (Bld) [Entitic vol] 9.4 fL Normal 8.7-12.3 [facility] Comment on above: Performed By: #### H EMOGC ####[facility] (DEFAULT)[address] [place] [address] Platelets (Bld) [#/Vol] 222 10*3/uL Normal 146-337 [facility] Comment on above: Performed By: #### H EMOGC ####[facility] (DEFAULT)[address] [place] [address] RBC (Bld) [#/Vol] 4.61 10*6/uL Normal 4.38-5.83 [facility] Comment on above: Performed By: #### H EMOGC ####[facility] (DEFAULT)[address] [place] [address] RBC Distribution 13.4 % Normal 10.9-14.3 [facility] Comment on above: Performed By: #### H [facility] ####[facility] (DEFAULT)[address] [facility] [address] WBC (Bld) [#/Vol] 4.36 10*3/uL Normal 3.73-10.10 [facility] Comment on above: Performed By: #### H [facility] ####[facility] (DEFAULT)[address] [place] [address] Erythrocyte distribution width (RBC) [Ratio] 13.4 % 10.9 - 14.3 % [facility] Hematocrit (Bld) [Volume fraction] 39.6 % 39.6 - 48.8 % [facility] Hemoglobin (Bld) [Mass/Vol] 12.8 g/dL Low 13.4 - 16.8 g/dL [facility] Interpretation and review of laboratory results Abnormal [facility] MCH (RBC) [Entitic mass] 27.8 pg 26.1 - 33.3 pg [facility] MCHC (RBC) [Mass/Vol] 32.3 g/dL 31.9 - 36.5 g/dL [facility] MCV (RBC) [Entitic vol] 85.9 fL 79.0 - 94.5 fL [facility] Platelet mean volume (Bld) [Entitic vol] 9.4 fL 8.7 - 12.3 fL [facility] Platelets (Bld) [#/Vol] 222 10*3/uL 146 - 337 K/uL [facility] RBC (Bld) [#/Vol] 4.61 10*6/uL [facility] WBC (Bld) [#/Vol] 4.36 10*3/uL 3.73 - 10. 10 K/uL [facility] CHEM 7 (LYTES,BUN,CREA,GLUC) on 09-03-2023 Anion gap [Moles/Vol] 12 mmol/L Normal 7-17 [facility] Comment on above: Performed By: #### NATHANIEL RAMÍREZ, HFP ####[facility] (DEFAULT)[address] [place] [address] Chloride [Moles/Vol] 104 mmol/L Normal 98-108 [facility] Comment on above: Performed By: #### NATHANIEL RAMÍREZ, HFP ####[facility] (DEFAULT)[address] [place] [address] CO2 [Moles/Vol] 24 mmol/L Normal 21-31 [facility] Comment on above: Performed By: #### NATHANIEL RAMÍREZ, HFP ####[facility] (DEFAULT)[address] [place] [address] Creatinine [Mass/Vol] 1.20 mg/dL Normal 0.70-1.30 [facility] Comment on above: Performed By: #### NATHANIEL RAMÍREZ, HFP ####[facility] (DEFAULT)[address] [place] [address] GFR/1.73 sq M.predicted among non-blacks MDRD (S/P/Bld) [Vol rate/Area] 73 mL/min/{1.73_m2} Normal >=60 [facility] Comment on above: Result Comment: Repo rted eGFR is based on the CKD-EPI 2020 equation using creatinine, age, and sex. Performed By: #### NATHANIEL RAMÍREZ, HFP ####[facility] (DEFAULT)[address] [place] [address] Glucose [Mass/Vol] 112 mg/dL High 70-99 [facility] Comment on above: Performed By: #### NATHANIEL RAMÍREZ, HFP ####[facility] (DEFAULT)[address] [facility] [address] Osmolality [Osmolality] 288 mosm/kg Normal 278-305 [facility] Comment on above: Performed By: #### NATHANIEL RAMÍREZ, HFP ####[facility] (DEFAULT)[address] [place] [address] Potassium [Moles/Vol] 4.1 mmol/L Normal 3.5-5.0 [facility] Comment on above: Performed By: #### NATHANIEL RAMÍREZ, HFP ####[facility] (DEFAULT)[address] [place] [address] Sodium [Moles/Vol] 136 mmol/L Normal 135-145 [facility] Comment on above: Performed By: #### NATHANIEL RAMÍREZ, HFP ####[facility] (DEFAULT)[address] [place] [address] Urea nitrogen [Mass/Vol] 17 mg/dL Normal 7-25 [facility] Comment on above: Performed By: #### NATHANIEL RAMÍREZ, HFP ####[facility] (DEFAULT)[address] [place] [address] Urea nitrogen/Creatinine [Mass ratio] 14 mg/mg Normal [facility] Comment on above: Performed By: #### NATHANIEL RAMÍREZ, HFP ####[facility] (DEFAULT)[address] [place] [address] Anion gap [Moles/Vol] 12 mmol/L 7 - 17 mmol/L [facility] Chloride [Moles/Vol] 104 mmol/L 98 - 10 8 mmol/L [facility] CO2 [Moles/Vol] 24 mmol/L 21 - 31 mmol/L [facility] Creatinine [Mass/Vol] 1.20 mg/dL 0.70 - 1.30 mg/dL [facility] eGFR, CKD-EPI, Male 74 - PINF [facility] Glucose [Mass/Vol] 112 mg/dL High 70 - 99 mg/dL [facility] Osmolality Calc [Osmolality] 288 [facility] Potassium [Moles/Vol] 4.1 mmol/L 3.5 - 5.0 mmol/L [facility] Sodium [Moles/Vol] 136 mmol/L 135 - 145 mmol/L [facility] Urea nitrogen [Mass/Vol] 17 mg/dL 7 - 25 mg/dL [facility] Urea nitrogen/Creatinine [Mass ratio] 14 mg/mg [facility] CYTOLOGY, NON-GYNOrdered By: Sherice Jimenez on 09-03-2023 CYTOLOGIC DIAGNOSIS v9htsCLdKMRueGRaXOLtG3eiwgR cNKAphPCwO3JivwmoUSoyBF9eZP 2erOuaeWQqsBRlHOHfGmLwr7ngh 368vVHlk1tmNRMQqyjfzYo8b2mm WYCCxH5aq4r7zH07MQIvyH6bnJY yDHtgddLvZOiceiZpziWuUxr0IQ D1xVlkKaohxCL1qYBxzCQ0FWlca 4TweNpttGoyFNA7XRTkBfruEZrm nOX7uKEkrVmgtQHgAS7qe4mveMT 1uqSbGOW7hUtdvAS0uXjoejruw8 wazDY3jCF3TTnaxTT8VCobYwTmG 1lhMLGibS8sE69fG0snMGBkyWdh LIdtGONmcZP6WMU7WONvj5vdHZU toKSpgTXhCvLiXDveIep1k5oiGX AgzZ04oCXtbaT5qEtdVVgjfYV7C Q95HUiiw7PfHKNfqOlnLKUvlD1t YzIzXGxldmVsbmZjbjIzXGxldmV tjaZbQYoaewPxb5TgcrLeaLL1WI vdvzRfdFB0iKjeZAGlI5K3G761Q IvfiaWpajTpFoXzxbm4NEKvzJfr bGlzdGxldmVsXGxldmVsbmZjMjN biIB9RJfsTdXsMqAiuXF9YAhdKn VopSK5ZKuoxDKvnTY0KCjphRV2C Gh1SNq9XWmsUGtzUty2nEsjzIL5 DTljrY4vNRIlG56cOiC4l9pbdIV 6rMT5BSxbuWG8LWueNcLuN1yuNP PkjM3qQ41nY3tjOFAgrMrgLLyhY YOziBK2OEL6SGZkb4mkBBYifCCj mQAyEoEdMAcmQaj5u3atEOTmpP0 6fQVvurX3qToaPN33MSqhb2LhPD UfpShqUVHquN4yUyMlAMvxraBlv mZjbjIzXGxldmVsamMwXGxldmVs c4TlmlAeqRL8JCuxojVxdKY3nUk yKJEoO3X7W358ANgxubMgtfBzEo Jkpkm8DXLlzHhqsFqclDzyolEyQ AcosgUozuOwRyKnoPO6NOxpJtGi ZnShsVJ2OEdxMiHzcGJ6QUqngLL zeAC9RJhibWY8YYy5JPc8FGqfKW uwDej6pCcytMA3DJrwlB3yOZNmG 91tYrJ7l0ycyYF5xRA2OEdoaKF7 HJmgRlJbO9pcBDZqnZ7rG42nC8d uPTJrbKmhSXmfBNQyyOK4VHY0LV Sql8jkRNGjpWFzgFFrXkSaYQtwI ns9k9gmGNMqaV18qJAiecA8wZxt YW63LKvhg3VlPJVwaAioFVVoqN9 mYzIzXGxldmVsbmZjbjIzXGxldm SwqdJdNFsjcxMtz7CkhwNxmUS8F IitqyZexOW5cDlcOIJvX6O3R291 AEprtwJqyePsWyMhuyv7PSJbnDn cbGlzdGxldmVsXGxldmVsbmZjMj VuxZH5UWrbJyEjGrFhjNJ1LYpoZ aGywFZ6ECdyuFEjuBV7KUjowRF5 WJy0TLn1VVdyKMigVyf0nWtqjXK 7PSjmkE4qNLMlE92fNaO1tD43DH cpiPgdhX74KHKipWTqhJMwfYF2F SqoqYmgxK90NCSqxBMgIDidh4Kc SOAhPvI7KHE1YQYidYlqnO59AGQ hyEVlG814abBjYBhsGT61XSNgaV KtmfSqVxFdHSSlmIZlaZS5CSCdW A4afoasTZalAXmrEPAqxeZ0AODe xSQrV9RiXXNiMI7jxkgoZAY5PVk fGLQbPRF7NbVwBZGsc0Kaywk9Go SxdGc1j9omVGJmYKQeaGyzf9lyW HP3BUXqrOMiI3oxyZ6bKIAvBE7r ufvgc9yxWUfgQWahOBLqyHU0mhC 1TZKzuVCsK9EuaW6wUABwMJVwzu FlmYunfA7yQmfkjoZyJVYmVSVEM hRPQm1NW0iDWIiMQE6JCVZaSIWQ UNtAWYSPTJTCFZtFG5GIZMwGBbD jBUJnIFWmP9kRR7tRN2ocWzouWa VrYGvjCWFcKhNdD4UzFRAoqpnuQ UOdSKSQZK6XGSZHRRDLRu2GNDK1 QTJfnezzpUD6TImdnyAdzOh1qSM szVfztO1aTxsgvoDgTVYpTTUKva YSJWjiX98qheZxD3DrkRZcRRQdO PfnTM86aZRnLXWsmCCjHWb8uT1r VOzyvDpnqrVTuXYenM3yiacvMLc jZjBccGFyXGxpMFxsczBccGFyfQ == [facility] Work Phone: Case Report [facility] Work Phone: Clinical History w6jdxQOaMJEmcECsCJBl A7xycgD gGSLorARdE9YkgggsFOzrPC7cPJ 8miZjhaIPzzYUtKMLbKsHhs7nqw 384qRTyk8ycASDSbkwyaSj8gNci C43kl5M0HqprI2paSOUfHSwiPZU mPMmkiDYcDMi3TQYfbDVbawJcWb CnEZMpeEVmeQQ4GBFcQB2xvjnkW FctVStlNIVjyiI4ATPwdPVnW1Rr OFTtXZ3wgssjSIZ1OZvyRUDcPEV 2PeBeAPBgf7Pwwrn9DlEbaVc9m1 gyIDCqDKSvoEcjk0qgZEJ3INBgz FOyH6xhgR6dEQRbKW3gkebaf5wi KQguFLmsKHVbbHD4enK7IOUbfYR dA4AosS8cUONxWXEqhrThhDplbE 5cZnMyMFxjZjEgUmVuYWwgdHJhb zKalXZxkF0uAWSnxf8= [facility] Work Phone: For Immediate Release to Patient's MyChart? Yes Yes [facility] Work Phone: Gross Description w4rupMRzRPApwNStXDSw M4ozdsK aQXWnhGDwU3AykwgvGKvfLV6vVN 3kaZuajDGypJIxZLYqYvGih2zcx 049gNYtw4tmQQNFvlgrvTm3tWde D85gu2V0CclcE90moGTtZGN0EIP gFRWkbVFdHEFcPHO3ICPrxTPlI4 drFXSaZY1yjdqtVZwfIHfyBINfd YK9UOIbgQNvT3DrLCSwBDsqSVKs ydj7PwIyYu0zgHSydOvnEEzrHHO kXHBsYWluXGZzMjAgTExMIEJBTF okIAAlHRVmkXLyCYl7HKFmfP3ye PTdtkSbmMBvyI7umVbbNVnpLZMl NDVPZSQoyJpuPJMUTPBmn3NfbT0 ccGFyXHBhcmRccGFyXHBhcn0= [facility] Work Phone: [facility] Work Phone: HEPATIC FUNCTION PANELon Albumin [Mass/Vol] 3.2 g/dL Low 3.5-5.0 [facility] Comment on above: Performed By: #### NATHANIEL RAMÍREZ, HFP ####[facility] (DEFAULT)[address] [facility] [place] [address] ALP [Catalytic activity/Vol] 118 U/L Normal 32-126 [facility] Comment on above: Performed By: #### NATHANIEL RAMÍREZ, HFP ####[facility] (DEFAULT)[address] [facility] [place] [address] ALT [Catalytic activity/Vol] 25 U/L Normal 10-52 [facility] Comment on above: Performed By: #### NATHANIEL RAMÍREZ, HFP ####[facility] (DEFAULT)[address] [facility] [place] [address] AST [Catalytic activity/Vol] 32 U/L Normal 10-39 [facility] Comment on above: Performed By: #### NATHANIEL RAMÍREZ, HFP ####[facility] (DEFAULT)[address] [place] [place] [address] Bilirubin [Mass/Vol] 1.0 mg/dL Normal <1.5 [facility] Comment on above: Performed By: #### NATHANIEL RAMRÍEZ, HFP ####[facility] (DEFAULT)[address] [place] [address] Bilirubin.indirect [Mass/Vol] 0.3 mg/dL High <0.3 [facility] Comment on above: Performed By: #### M MERLE, CHM7, HFP ####[facility] (DEFAULT)[address] [place] [address] Protein [Mass/Vol] 6.5 g/dL Normal 6.4-8.3 [facility] Comment on above: Performed By: #### M MERLE, CHM7, HFP ####[facility] (DEFAULT)[address] [facility] [place] [address] Albumin [Mass/Vol] 3.2 g/dL Low 3.5 - 5.0 g/dL [facility] ALP [Catalytic activity/Vol] 118 U/L 32 - 126 U/L [facility] ALT [Catalytic activity/Vol] 25 U/L 10 - 52 U/L [facility] AST [Catalytic activity/Vol] 32 U/L 10 - 39 U/L [facility] Bilirubin [Mass/Vol] 1.0 mg/dL [facility]F - 1.5 mg/dL [facility] Bilirubin.direct [Mass/Vol] 0.3 mg/dL High NINF - 0.3 mg/dL [facility] Protein [Mass/Vol] 6.5 g/dL 6.4 - 8.3 g/dL [facility] HISTOPLASMA AND BLASTOMYCES ANTIGEN, ENZYME IMMUNOASSAY, SERMon 09-03-2023 Histoplasma/Blastomy antonia Ag Result Detected Critically abnormal Not Detected [facility] Histoplasma/Blastomy antonia Ag Value 5.3 ng/mL [facility] Interpretation and review of laboratory results Abnormal [facility] IMMUNOPHENOTYPING, TISSUE/FL UIDon 09-03-2023 BKR DX CODE Use Ordering Normal [facility] Comment on above: Order Comment: Pleas e lab add on to specimen collected yesterdayIMMUNOPHENOTYPING DIAGNOSISPATIENT NAME: GEORGE SLATER: 1970MRN: [id number]#: [id number] BY: Yossi Perla M.D,, Ph.D. [id number] TYPE: Bronchial Alveolar LavageLABORATORY INTERPRETATION:There is no [...] performance characteristicsdetermined The Flow Cytometry Laboratory at [facility]. It has notbeen cleared or approved by the FDA. This laboratory is certifiedunder the Clinical Laboratory Improvement Amendments (CLIA)as qualified to perform high complexity clinical laboratorytesting. This test is used for clinical purposes. It should notbe regarded as investigational or for research.The [facility] Flow Cytometry Laboratory lower limitof CLL MRD detection is 0.1% of the gated lymphocytes. Performed By: #### G IPP ####[facility] ([facility])[address] [place] [address] Flow Interpretation See Comment Normal [facility] Comment on above: Order Comment: Plejoan e lab add on to specimen collected yesterdayIMMUNOPHENOTYPING DIAGNOSISPATIENT NAME: GEORGE SLATER: 1970MRN: [id number]#: [id number] BY: Yossi Perla M.D,, Ph.D. [id number] TYPE: Bronchial Alveolar LavageLABORATORY INTERPRETATION:There is no [...] performance characteristicsdetermined The Flow Cytometry Laboratory at [facility]. It has notbeen cleared or approved by the FDA. This laboratory is certifiedunder the Clinical Laboratory Improvement Amendments (CLIA)as qualified to perform high complexity clinical laboratorytesting. This test is used for clinical purposes. It should notbe regarded as investigational or for research.The [facility] Flow Cytometry Laboratory lower limitof CLL MRD detection is 0.1% of the gated lymphocytes. Performed By: #### G IPP ####[facility] (DEFAULT)[address] [place] [address] Flow Interpreted by: Yossi Pelra MD, PhD [facility] Comment on above: Order Comment: Pleas e lab add on to specimen collected yesterdayIMMUNOPHENOTYPING DIAGNOSISPATIENT NAME: GEORGE SLATER: 1970MRN: [id number]#: [id number] BY: Yossi Perla M.D,, Ph.D. [id number] TYPE: Bronchial Alveolar LavageLABORATORY INTERPRETATION:There is no [...] performance characteristicsdetermined The Flow Cytometry Laboratory at [facility]. It has notbeen cleared or approved by the FDA. This laboratory is certifiedunder the Clinical Laboratory Improvement Amendments (CLIA)as qualified to perform high complexity clinical laboratorytesting. This test is used for clinical purposes. It should notbe regarded as investigational or for research.The [facility] Flow Cytometry Laboratory lower limitof CLL MRD detection is 0.1% of the gated lymphocytes. Performed By: #### G IPP ####[facility] (DEFAULT)[address] [place] [address] MAGNESIUMon 09-03-2023 Magnesium [Mass/Vol] 1.6 mg/dL Normal 1.6-2.6 [facility] Comment on above: Performed By: #### M GO, CHM7, [facility] ####[facility] (DEFAULT)[address] [place] [address] Interpretation and review of laboratory results Normal [facility] Magnesium [Mass/Vol] 1.6 mg/dL 1.6 - 2 .6 mg/dL [facility] No Panel Informationon 09-03 Interpretation and review of laboratory results Abnormal [facility] PARVOVIRUS (B19) DNA, PCR, B LOODon 09-03-2023 PARVOVIRUS B19 BY RAPID PCR Not detected Not Detected [facility] UT SPEC SOURCE Whole Blood [facility] Portable XR Chest Viewson RADIOLOGY RADIOLOGY [facility] Radiology Study observation (narrative) [facility] Portable XR Chest ViewsOrder ed By: [place] on 09-03-2023 [facility] Work Phone: XR CHEST PORTABLEon 09-03-20 23 XR CHEST PORTABLE Normal [facility] ACID FAST CULTUREon 10-04-20 23 Bacteria identified Cx Nom (Unsp spec) NO GROWTH DAY 42 OF 42 Normal [facility] Comment on above: Performed By: #### A FB ####[facility] (DEFAULT)[address] [place] [address] Fluorochrome Stain No acid Fast Bacillus Seen Normal [facility] Comment on above: Performed By: #### A FB ####[facility] (DEFAULT)[address] [place] [address] Bacteria identified Cx Nom (Unsp spec) NO GROWTH DAY 42 OF 42 Normal [facility] Comment on above: Order Comment: BAL A FB culture. Clinical suspicion for non-tuberculous mycobacteria Performed By: #### A FB ####[facility] (DEFAULT)[address] [place] [address] Fluorochrome Stain No acid Fast Bacillus Seen Normal [facility] Comment on above: Order Comment: BAL A FB culture. Clinical suspicion for non-tuberculous mycobacteria Performed By: #### A FB ####[facility] (DEFAULT)[address] [place] [address] ASPERGILLUS (GALACTOMANNAN), ANTIGENon 09-02-2023 Galactomannan Ag IA Qn <0.500 NINF [facility] ASPERGILLUS ANTIGEN, BALon 1 Aspergillus Galactomannan Antigen, BAL <0.500 Normal <0.5 [facility] Comment on above: Result Comment: ---- ADDITIONAL INFORMATION This is a qualitative test and the resulted index value isnot indicative of disease severity. Serial testing isrecommended for patients at high risk for invasiveaspergillosis.This assay was performed using the FDA-cleared [employer] Aspergillus Galactomannan EIA.Test Performed by:[facility] [place] [id number] Director: Rosendo Bose M.D. Ph.D.; CLIA# [id number] Performed By: #### X ASGFL ####[facility] (DEFAULT)[address] [place] [address] Aspergillus Galactomannan Antigen, BAL <0.500 Normal <0.5 [facility] Comment on above: Order Comment: BAL a spirgillus antigen Result Comment: ---- ADDITIONAL INFORMATION This is a qualitative test and the resulted index value isnot indicative of disease severity. Serial testing isrecommended for patients at high risk for invasiveaspergillosis.This assay was performed using the FDA-cleared [employer] Aspergillus Galactomannan EIA.Test Performed by:[facility] [place] [id number] Director: Rosendo Bose M.D. Ph.D.; CLIA# [id number] Performed By: #### X ASGFL ####[facility] (DEFAULT)[address] [place] [address] ATYPICAL BACTERIAL PNEUMONIA ,PCROrdered By: Shari Contreras on 09-02-2023 B. parapertussis DNA ESTELITA+probe Ql (Unsp spec) Not detected Not Detected [facility] B. pertussis DNA ESTELITA+probe Ql (Unsp spec) Not detected Not Detected [facility] C. pneumoniae DNA ESTELITA+probe Ql (Unsp spec) Not detected Not Detected [facility] Interpretation and review of laboratory results Normal [facility] M. pneumoniae DNA ESTELITA+probe Ql (Unsp spec) Not detected Not Detected [facility] ATYPICAL BACTERIAL PNEUMONIA ,PCRon 09-02-2023 Bordetella Parapertussis Not detected Normal Not Detected [facility] Comment on above: Order [...] by The Clinical Microbiology Laboratory at The [facility]. It has not been cleared or approved by the FDA. The laboratory is required under CLIA as qualified to perform high-complexity testing. This test is used for clinical purposes. It should not be regarded as investigational or for research. Performed By: #### A TYPNE ####[facility] (DEFAULT)[address] [address] Bordetella Pertussis Not detected Normal Not Detected [facility] Comment on above: Order [...] by The Clinical Microbiology Laboratory at The [facility]. It has not been cleared or approved by the FDA. The laboratory is required under CLIA as qualified to perform high-complexity testing. This test is used for clinical purposes. It should not be regarded as investigational or for research. Performed By: #### A TYPNE ####[facility] (DEFAULT)[address] [place] [address] Chlamydia Pneumoniae Not detected Normal Not Detected [facility] Comment on above: Order [...] by The Clinical Microbiology Laboratory at The [facility]. It has not been cleared or approved by the FDA. The laboratory is required under CLIA as qualified to perform high-complexity testing. This test is used for clinical purposes. It should not be regarded as investigational or for research. Performed By: #### A TYPNE ####[facility] (DEFAULT)[address] [place] [address] Mycoplasma Pneumoniae Not detected Normal Not Detected [facility] Comment on above: Order [...] by The Clinical Microbiology Laboratory at The [facility]. It has not been cleared or approved by the FDA. The laboratory is required under CLIA as qualified to perform high-complexity testing. This test is used for clinical purposes. It should not be regarded as investigational or for research. Performed By: #### A TYPNE ####[facility] (DEFAULT)[address] [address] BAL CONSULTon 09-02-2023 ALVEOLAR MACROPHAGES 33 % Normal [facility] Comment on above: Order Comment: BAL c onsultIf > 15% lymphocytes - please send for flow. Performed By: #### B ALC ####[facility] (DEFAULT)[address] [place] [address] Bal comments Correlation with microbiology stains and cultures is recommended. Correlation with viral studies is recommended. Normal [facility] Comment on above: Order Comment: BAL c onsultIf > 15% lymphocytes - please send for flow. Performed By: #### B ALC ####[facility] (DEFAULT)[address] [place] [address] Bal Diff Quik Stain Quality Check Acceptable Normal [facility] Comment on above: Order Comment: BAL c onsultIf > 15% lymphocytes - please send for flow. Performed By: #### B ALC ####[facility] (DEFAULT)[address] [place] [address] Bal Reviewed By: Leonardo Peralta MD Normal [facility] Comment on above: Order Comment: BAL c onsultIf > 15% lymphocytes - please send for flow. Performed By: #### B ALC ####[facility] (DEFAULT)[address] [place] [address] BKR BAL INTERPRETATION Cellular specimen comprised of alveolar macrophages and small lymphocytes. No definitive microorganisms are observed. Rare degenerating cells with changes suggestive of viral cytopathic effect are noted. Moderate degenerative changes. Normal [facility] Comment on above: Order Comment: BAL c onsultIf > 15% lymphocytes - please send for flow. Performed By: #### B ALC ####[facility] (DEFAULT)[address] [place] [address] BKR DX CODE Use Ordering Normal [facility] Comment on above: Order Comment: BAL c onsultIf > 15% lymphocytes - please send for flow. Performed By: #### B ALC ####[facility] (DEFAULT)[address] [facility] [address] Eosinophils/100 WBC (Bld) 0 % Normal [facility] Comment on above: Order Comment: BAL c onsultIf > 15% lymphocytes - please send for flow. Performed By: #### B ALC ####[facility] (DEFAULT)[address] [place] [address] Lymphocytes/100 WBC (Bld) 49 % Normal [facility] Comment on above: Order Comment: BAL c onsultIf > 15% lymphocytes - please send for flow. Performed By: #### B ALC ####[facility] (DEFAULT)[address] [place] [address] Neutrophils/100 WBC (Bld) 18 % Normal [facility] Comment on above: Order Comment: BAL c onsultIf > 15% lymphocytes - please send for flow. Performed By: #### B ALC ####[facility] (DEFAULT)[address] [place] [address] ALVEOLAR MACROPHAGES 32 % Normal [facility] Comment on above: Order Comment: BAL c onsult for cell differential and pathologist review. Please do flow cytometry if > 12% lymphocytes Performed By: #### B ALC ####[facility] (DEFAULT)[address] [place] [address] Bal comments Correlation with microbiology stains and cultures is recommended. Normal [facility] Comment on above: Order Comment: BAL c onsult for cell differential and pathologist review. Please do flow cytometry if > 12% lymphocytes Performed By: #### B ALC ####[facility] (DEFAULT)[address] [place] [address] Bal Diff Quik Stain Quality Check Acceptable Normal [facility] Comment on above: Order Comment: BAL c onsult for cell differential and pathologist review. Please do flow cytometry if > 12% lymphocytes Performed By: #### B ALC ####[facility] (DEFAULT)[address] [place] [address] Bal Reviewed By: Leonardo Peralta MD [facility] Comment on above: Order Comment: BAL c onsult for cell differential and pathologist review. Please do flow cytometry if > 12% lymphocytes Performed By: #### B ALC ####[facility] (DEFAULT)[address] [place] [address] BKR BAL INTERPRETATION Cellular specimen comprised of alveolar macrophages and small lymphocytes. No definitive microorganisms are observed. Moderate degenerative changes. Normal [facility] Comment on above: Order Comment: BAL c onsult for cell differential and pathologist review. Please do flow cytometry if > 12% lymphocytes Performed By: #### B ALC ####[facility] (DEFAULT)[address] [place] [address] BKR DX CODE Use Ordering Normal [facility] Comment on above: Order Comment: BAL c onsult for cell differential and pathologist review. Please do flow cytometry if > 12% lymphocytes Performed By: #### B ALC ####[facility] (DEFAULT)[address] [place] [address] Eosinophils/100 WBC (Bld) 0 % Normal [facility] Comment on above: Order Comment: BAL c onsult for cell differential and pathologist review. Please do flow cytometry if > 12% lymphocytes Performed By: #### B ALC ####[facility] (DEFAULT)[address] [place] [address] Lymphocytes/100 WBC (Bld) 57 % Normal [facility] Comment on above: Order Comment: BAL c onsult for cell differential and pathologist review. Please do flow cytometry if > 12% lymphocytes Performed By: #### B ALC ####[facility] (DEFAULT)[address] [facility] [address] Neutrophils/100 WBC (Bld) 11 % Normal [facility] Comment on above: Order Comment: BAL c onsult for cell differential and pathologist review. Please do flow cytometry if > 12% lymphocytes Performed By: #### B ALC ####[facility] (DEFAULT)[address] [place] [address] BRONCHOSCOPYon 09-02-2023 Radiology Study observation (narrative) [facility] Bacteria identified Cx Nom ( Bld)on 09-02-2023 Bacteria identified Cx Nom (Unsp spec) NO GROWTH DAY 5 OF 5 [facility] CBC,PLATELETSon 09-02-2023 Hematocrit (Bld) [Volume fraction] 39.9 % Normal 39.6-48.8 [facility] Comment on above: Performed By: #### H EMOGC ####[facility] (DEFAULT)[address] [place] [address], [place] [address] Hemoglobin (Bld) [Mass/Vol] 12.9 g/dL Low 13.4-16.8 [facility] Comment on above: Performed By: #### H EMOGC ####[facility] (DEFAULT)[address] [place] [address], [place] [address] MCV (RBC) [Entitic vol] 86.4 fL Normal 79.0-94.5 [facility] Comment on above: Performed By: #### H EMOGC ####[facility] (DEFAULT)[address] [place] [address] Mean Cell Hgb 27.9 pg Normal 26.1-33.3 [facility] Comment on above: Performed By: #### H EMOGC ####[facility] (DEFAULT)[address] [place] [address] Mean Cell Hgb Conc 32.3 g/dL Normal 31.9-36.5 [facility] Comment on above: Performed By: #### H EMOGC ####[facility] (DEFAULT)[address] [place] [address] Platelet mean volume (Bld) [Entitic vol] 9.5 fL Normal 8.7-12.3 [facility] Comment on above: Performed By: #### H EMOGC ####[facility] (DEFAULT)[address] [place] [address] Platelets (Bld) [#/Vol] 210 10*3/uL Normal 146-337 [facility] Comment on above: Performed By: #### H EMOGC ####[facility] (DEFAULT)[address] [place] [address] RBC (Bld) [#/Vol] 4.62 10*6/uL Normal 4.38-5.83 [facility] Comment on above: Performed By: #### H EMOGC ####[facility] (DEFAULT)[address] [place] [address] RBC Distribution 13.2 % Normal 10.9-14.3 [facility] Comment on above: Performed By: #### H EMOGC ####[facility] (DEFAULT)[address] [place] [address] WBC (Bld) [#/Vol] 4.12 10*3/uL Normal 3.73-10.10 [facility] Comment on above: Performed By: #### H EMOGC ####[facility] (DEFAULT)[address] [place] [address] Erythrocyte distribution width (RBC) [Ratio] 13.2 % 10.9 - 14.3 % [facility] Hematocrit (Bld) [Volume fraction] 39.9 % 39.6 - 48.8 % [facility] Hemoglobin (Bld) [Mass/Vol] 12.9 g/dL Low 13.4 - 16.8 g/dL [facility] Interpretation and review of laboratory results Abnormal [facility] MCH (RBC) [Entitic mass] 27.9 pg 26.1 - 33.3 pg [facility] MCHC (RBC) [Mass/Vol] 32.3 g/dL 31.9 - 36.5 g/dL [facility] MCV (RBC) [Entitic vol] 86.4 fL 79.0 - 94.5 fL [facility] Platelet mean volume (Bld) [Entitic vol] 9.5 fL 8.7 - 12.3 fL [facility] Platelets (Bld) [#/Vol] 210 10*3/uL 146 - 337 K/uL [facility] RBC (Bld) [#/Vol] 4.62 10*6/uL [facility] WBC (Bld) [#/Vol] 4.12 10*3/uL 3.73 - 10. 10 K/uL [facility] CHEM 7 (LYTES,BUN,CREA,GLUC) on 09-02-2023 Anion gap [Moles/Vol] 13 mmol/L Normal 7-17 [facility] Comment on above: Performed By: #### NATHANIEL RAMÍREZ, HFP ####[facility] (DEFAULT)[address] [place] [address] Chloride [Moles/Vol] 105 mmol/L Normal 98-108 [facility] Comment on above: Performed By: #### NATHANIEL RAMÍREZ, HFP ####[facility] (DEFAULT)[address] [place] [address] CO2 [Moles/Vol] 22 mmol/L Normal 21-31 [facility] Comment on above: Performed By: #### NATHANIEL RAMÍREZ, HFP ####[facility] (DEFAULT)[address] [place] [address] Creatinine [Mass/Vol] 1.25 mg/dL Normal 0.70-1.30 [facility] Comment on above: Performed By: #### NATHANIEL RAMÍREZ, HFP ####[facility] (DEFAULT)[address] [place] [address] GFR/1.73 sq M.predicted among non-blacks MDRD (S/P/Bld) [Vol rate/Area] 69 mL/min/{1.73_m2} Normal >=60 [facility] Comment on above: Result Comment: Repo rted eGFR is based on the CKD-EPI 2020 equation using creatinine, age, and sex. Performed By: #### NATHANIEL RAMÍREZ, HFP ####[facility] (DEFAULT)[address] [place] [address] Glucose [Mass/Vol] 105 mg/dL High 70-99 [facility] Comment on above: Performed By: #### NATHANIEL RAMÍREZ, HFP ####[facility] (DEFAULT)[address] [place] [address] Osmolality [Osmolality] 287 mosm/kg Normal 278-305 [facility] Comment on above: Performed By: #### NATHANIEL RAMÍREZ, HFP ####[facility] (DEFAULT)[address] [place] [address] Potassium [Moles/Vol] 4.3 mmol/L Normal 3.5-5.0 [facility] Comment on above: Performed By: #### NATHANIEL RAÍMREZ, HFP ####[facility] (DEFAULT)[address] [place] [address] Sodium [Moles/Vol] 136 mmol/L Normal 135-145 [facility] Comment on above: Performed By: #### NATHANIEL RAMÍREZ, HFP ####[facility] (DEFAULT)[address] [facility] [address] Urea nitrogen [Mass/Vol] 16 mg/dL Normal 7-25 [facility] Comment on above: Performed By: #### M NATHANIEL BLOOM, HFP ####[facility] (DEFAULT)[address] [place] [address] Urea nitrogen/Creatinine [Mass ratio] 13 mg/mg Normal [facility] Comment on above: Performed By: #### M NATHANIEL BLOOM, HFP ####[facility] (DEFAULT)[address] [place] [address] Anion gap [Moles/Vol] 13 mmol/L 7 - 17 [facility]L [facility] Chloride [Moles/Vol] 105 mmol/L 98 - 10 8 mmol/L [facility] CO2 [Moles/Vol] 22 mmol/L 21 - 31 mmol/L [facility] Creatinine [Mass/Vol] 1.25 mg/dL 0.70 - 1.30 mg/dL [facility] eGFR, CKD-EPI, Male 70 - PINF [facility] Glucose [Mass/Vol] 105 mg/dL High 70 - 99 mg/dL [facility] Osmolality Calc [Osmolality] 287 [facility] Potassium [Moles/Vol] 4.3 mmol/L 3.5 - 5.0 mmol/L [facility] Sodium [Moles/Vol] 136 mmol/L 135 - 145 mmol/L [facility] Urea nitrogen [Mass/Vol] 16 mg/dL 7 - 25 mg/dL [facility] Urea nitrogen/Creatinine [Mass ratio] 13 mg/mg [facility] CMV PCR,FLUIDS,URINE,EYE ETC on 09-02-2023 CMV by PCR Result Negative Normal Negative [facility] Comment on above: Result Comment: ---- ADDITIONAL INFORMATION This test was developed and its performance characteristicsdetermined by [facility] in a manner consistent with CLIArequirements. This test has not been cleared or approved bythe U.S. Food and Drug Administration.Test Performed by:[address] [address]Tfv Director: Rosendo Bose M.D. Ph.D.; CLIA# [id number] Performed By: #### Y CMV ####[facility] (DEFAULT)[address] [place] [address] CMV BY PCR SOURCE BAL RML Normal [facility] Comment on above: Performed By: #### Y CMV ####[facility] (DEFAULT)[address] [place] [address] CMV by PCR Result Negative Normal Negative [facility] Comment on above: Result Comment: ---- ADDITIONAL INFORMATION This test was developed and its performance characteristicsdetermined by [facility] in a manner consistent with CLIArequirements. This test has not been cleared or approved bythe U.S. Food and Drug Administration.Test Performed by:[address] [id number] Director: Rosendo Bose M.D. Ph.D.; CLIA# [id number] Performed By: #### Y CMV ####[facility] (DEFAULT)[address] [address] CMV BY PCR SOURCE BAL LLL Normal [facility] Comment on above: Performed By: #### Y CMV ####[facility] (DEFAULT)[address] [place] [address] CYTOLOGY, NON-GYNon 09-02-20 CYTOLOGIC DIAGNOSIS Normal [facility] Comment on above: Result Comment: A. B RONCHOALVEOLAR LAVAGE, LEFT LOWER LOBE (CYTOLOGY):FINAL DIAGNOSIS:No Malignant Cells Are IdentifiedHypocellular Specimen Performed By: #### N ONGNNONFNA ####[facility] (DEFAULT)[address] [place] [address] Case Report Normal [facility] Comment on above: Result Comment: Medi abhishek Cytology Report Case: [id number] Provider: Crow Diaz MD Collected: 09/02/2023 08:38 AMOrdering Location: 0 Received: 09/02/2023 10:44 AMPathologist: KENTON Caglepecimen: BRONCHOALVEOLAR LAVAGE, LLL BAL Performed By: #### N ONGNGRAEMEFNA ####[facility] (DEFAULT)[address] [place] [address] Clinical History Renal transplant. Normal [facility] Comment on above: Performed By: #### N ONJOHNNA ####[facility] (DEFAULT)[address] [place] [address], [place] [address] Gross Description Normal [facility] Comment on above: Result Comment: LLL BAL1 ml hazy colorless fld unfixed1 TP slide Pap stainFor Immediate Release to Patient's MyChart? Yes Performed By: #### N ONGNNONFNA ####[facility] (DEFAULT)[address] [place] [address], [place] [address] FUNGUS CULTUREon 09-02-2023 Bacteria identified Cx Nom (Unsp spec) Normal [facility] Comment on above: Order Comment: Ident ification was performed on the MALDI-TOF mass spectrometer [employer]. This test was developed by [facility]. It has not been cleared or approved by the FDA. The laboratory is regulated under CLIA as qualified to perform high-complexity testing. This test is used for clinical purposes. It should not be regarded as investigational or for research. Result Comment: Grow pq145Pez [place] Histoplasma capsulatum Performed By: #### F UN ####[facility] (DEFAULT)[address] [place] [address] Bacteria identified Cx Nom (Unsp spec) NO GROWTH DAY 28 OF 28 Normal [facility] Comment on above: Order Comment: BAL f ungal culture Performed By: #### F UN ####[facility] (DEFAULT)[address] [place] [address] HEPATIC FUNCTION PANELon Albumin [Mass/Vol] 3.2 g/dL Low 3.5-5.0 [facility] Comment on above: Performed By: #### M GO CHM7, HFP ####[facility] (DEFAULT)[address] [place] [address] ALP [Catalytic activity/Vol] 107 U/L Normal 32-126 [facility] Comment on above: Performed By: #### M GO CHM7, HFP ####[facility] (DEFAULT)[address] [place] [address] ALT [Catalytic activity/Vol] 20 U/L Normal 10-52 [facility] Comment on above: Performed By: #### M GO CHM7, HFP ####[facility] (DEFAULT)[address] [place] [address] AST [Catalytic activity/Vol] 31 U/L Normal 10-39 [facility] Comment on above: Performed By: #### M GO, CHM7, HFP ####[facility] (DEFAULT)[address] [place] [address] Bilirubin [Mass/Vol] 1.0 mg/dL Normal <1.5 [facility] Comment on above: Performed By: #### M GO, CHM7, HFP ####[facility] (DEFAULT)[address] [place] [address] Bilirubin.indirect [Mass/Vol] 0.3 mg/dL High <0.3 [facility] Comment on above: Performed By: #### M GO, CHM7, HFP ####[facility] (DEFAULT)[address] [place] [address] Protein [Mass/Vol] 6.6 g/dL Normal 6.4-8.3 [facility] Comment on above: Performed By: #### M GO, CHM7, [facility] ####[facility] (DEFAULT)[address] [facility] [place] [address] Albumin [Mass/Vol] 3.2 g/dL Low 3.5 - 5.0 g/dL [facility] ALP [Catalytic activity/Vol] 107 U/L 32 - 126 U/L [facility] ALT [Catalytic activity/Vol] 20 U/L 10 - 52 U/L [facility] AST [Catalytic activity/Vol] 31 U/L 10 - 39 U/L [facility] Bilirubin [Mass/Vol] 1.0 mg/dL NINF - 1.5 mg/dL [facility] Bilirubin.direct [Mass/Vol] 0.3 mg/dL High NINF - 0.3 mg/dL [facility] Protein [Mass/Vol] 6.6 g/dL 6.4 - 8.3 g/dL [facility] HISTOPLASMA ANTIGEN, FLUIDon 09-02-2023 FH SOURCE BAL RML Normal [facility] Comment on above: Performed By: #### Y FHST ####[facility] (DEFAULT)[address] [facility] [address] Histo FLD interpretation Negative Normal [facility] Comment on above: Result Comment: ---- ADDITIONAL INFORMATION Reference interval: None DetectedReportable Range: Positive Results reported in ng/mL from0.20 ng/mL to 20.00 ng/mLPositive Results above 20.00 ng/mL are reported as 'Abovethe Limit of Quantification'Cross-reactions occur with Blastomyces spp., Coccidioidesspp., and Paracoccidioides brasiliensis.This test was developed and its performance characteristicsdetermined by [facility]. It has not beencleared or approved by the FDA; however, FDA clearance orapproval is not currently required for clinical use. Theresults are not intended to be used as the sole means forclinical diagnosis or patient management decisions.Test Performed by:[facility] [place] [address] Performed By: #### Y FHST ####[facility] (DEFAULT)[address] [place] [address] Histoplasma Antigen, FLUID Not detected Normal [facility] Comment on above: Performed By: #### Y FHST ####[facility] (DEFAULT)[address] [place] [address] HISTOPLASMA ANTIGEN,URINEon 09-02-2023 H. capsulatum Ag (U) [Mass/Vol] Not detected ng/mL [facility] H. capsulatum Ag IA Ql (U) Not detected Not Detected [facility] HISTOPLASMA CAPSULATUM/BLAST OMYCES SPECIES,PCR FLUIDon 09-02-2023 HISTO/BLASTO RESULT Negative Normal Not Applicable [facility] Comment on above: Result Comment: A Ne gative result from BAL fluid does not rule out thepresence of Histoplasma capsulatum because the sensitivity from this source is suboptimal. ADDITIONAL INFORMATION This test was developed and its performance characteristicsdetermined by [facility] in a manner consistent with CLIArequirements. This test has not been cleared or approved bythe U.S. Food and Drug Administration.Test Performed by:[address] Director: Rosendo Bose M.D. Ph.D.; CLIA# [id number] Performed By: #### Y HBRP ####[facility] (DEFAULT)[address] [place] [address] Source BAL RML Normal [facility] Comment on above: Performed By: #### Y HBRP ####[facility] (DEFAULT)[address] [facility] [place] [address] HIV 1 AND 2 ANTIBODIES/P24 A NTIGENOrdered By: Wilma Luque on 09-02-2023 HIV 1+2 Ab+HIV1 p24 Ag IA Ql Non-Reactive Non Reactive [facility] Interpretation and review of laboratory results Normal [facility] HIV 1 AND 2 ANTIBODIES/P24 A NTIGENon 09-02-2023 HIV-1/HIV-2 Ab With p24 Antigen Non-Reactive Normal Non Reactive [facility] Comment on above: Performed By: #### L [id number] ####[facility] (DEFAULT)[address] [facility] [address] LEGIONELLA CULTUREon 023 Bacteria identified Cx Nom (Unsp spec) NO GROWTH DAY 7 OF 7 Normal [facility] Comment on above: Performed By: #### L EGN ####[facility] (DEFAULT)[address] [facility] [address] Bacteria identified Cx Nom (Unsp spec) NO GROWTH DAY 7 OF 7 Normal [facility] Comment on above: Order Comment: BAL l egionella culture Performed By: #### L EGN ####[facility] (DEFAULT)[address] [facility] [address] LEGIONELLA PCRon 09-02-2023 Legionella species, Culture BAL RML Normal [facility] Comment on above: Performed By: #### Y LEGRP ####[facility] (DEFAULT)[address] [facility] [address] Legionella, pcr result Negative Normal Not Applicable [facility] Comment on above: Result Comment: ---- ADDITIONAL INFORMATION This test was developed and its performance characteristicsdetermined by [facility] in a manner consistent with CLIArequirements. This test has not been cleared or approved bythe U.S. Food and Drug Administration.Test Performed by:[address] [address]Tkz Director: Rosendo Bose M.D. Ph.D.; CLIA# [id number] Performed By: #### Y LEGRP ####[facility] (DEFAULT)[address] [facility] [address] LOWER RESPIRATORY CULTURE, B ACTERIALon 09-02-2023 Bacteria identified Cx Nom (Unsp spec) NO GROWTH DAY 2 OF 2 Normal [facility] Comment on above: Performed By: #### R ES ####[facility] (DEFAULT)[address] [place] [address] Microscopic observation Gram stain Nom (Unsp spec) Normal [facility] Comment on above: Result Comment: Cyto centrifuge preparationNeutrophils, RareRed Blood Cells PresentNo organisms seen Performed By: #### R ES ####[facility] (DEFAULT)[address] [place] [address] Bacteria identified Cx Nom (Unsp spec) NO GROWTH DAY 2 OF 2 Normal [facility] Comment on above: Order Comment: BAL b acterial respiratory culture Performed By: #### R ES ####[facility] (DEFAULT)[address] [place] [address] Microscopic observation Gram stain Nom (Unsp spec) Normal [facility] Comment on above: Order Comment: BAL b acterial respiratory culture Result Comment: Cyto centrifuge preparationNeutrophils, ModerateRed Blood Cells PresentNo organisms seen Performed By: #### R ES ####[facility] (DEFAULT)[address] [place] [address] MAGNESIUMon 09-02-2023 Magnesium [Mass/Vol] 1.7 mg/dL Normal 1.6-2.6 [facility] Comment on above: Performed By: #### M GO, CHM7, HFP ####[facility] (DEFAULT)[address] [place] [address] Interpretation and review of laboratory results Normal [facility] Magnesium [Mass/Vol] 1.7 mg/dL 1.6 - 2 .6 mg/dL [facility] No Panel Informationon 09-02 Interpretation and review of laboratory results Abnormal [facility] PNEUMOCYSTIS JIROVECI,PCRon 09-02-2023 PN Report Status DNR Normal [facility] Comment on above: Performed By: #### Y PNRP ####[facility] (DEFAULT)[address] [place] [address] PN Specimen Source BAL RML Normal [facility] Comment on above: Performed By: #### Y PNRP ####[facility] (DEFAULT)[address] [place] [address] Pneum jiroveci comment DNR Normal [facility] Comment on above: Performed By: #### Y PNRP ####[facility] (DEFAULT)[address] [place] [address] Pneumocystis jiroveci,PCR result Negative Normal Not Applicable [facility] Comment on above: Result Comment: ---- ADDITIONAL INFORMATION This test was developed and its performance characteristicsdetermined by [facility] in a manner consistent with CLIArequirements. This test has not been cleared or approved bythe U.S. Food and Drug Administration.Test Performed by:[facility] [address] [address]Vbz Director: Rosendo Bose M.D. Ph.D.; CLIA# [id number] Performed By: #### Y PNRP ####[facility] (DEFAULT)[address] [place] [address] PN Report Status DNR Normal [facility] Comment on above: Performed By: #### Y PNRP ####[facility] (DEFAULT)[address] [place] [address] PN Specimen Source BAL LLL Normal [facility] Comment on above: Performed By: #### Y PNRP ####[facility] (DEFAULT)[address] [place] [address] Pneum jiroveci comment DNR Normal [facility] Comment on above: Performed By: #### Y PNRP ####[facility] (DEFAULT)[address] [facility] [place] [address] Pneumocystis jiroveci,PCR result Negative Normal Not Applicable [facility] Comment on above: Result Comment: ---- ADDITIONAL INFORMATION This test was developed and its performance characteristicsdetermined by [facility] in a manner consistent with CLIArequirements. This test has not been cleared or approved bythe U.S. Food and Drug Administration.Test Performed by:[address] Director: Rosendo Bose M.D. Ph.D.; CLIA# [id number] Performed By: #### Y PNRP ####[facility] (DEFAULT)[address] [place] [address] TACROLIMUS LEVEL, TROUGH (UT E DRUG LEVEL)on 09-02-2023 Interpretation and review of laboratory results Normal [facility] Tacrolimus (Bld) [Mass/Vol] 4.2 ng/mL [facility] Tacrolimus, Trough 4.2 ng/mL Normal [facility] ow Transplant: 4.0-12.0, Therapeutic: 5.0-15.0 [facility] Comment on above: Order Comment: Pleas e draw at specified interval PRIOR to dose. Do not hold dose to wait for level. Specimens batched twice per day, (M-F) and once per day weekendsMethod performed is a chemiluminescent microparticle immunoasssay on the [employer] i2000.The range is based on experience at [facility] and users should be aware that target concentrations vary widely depending on concomitant therapy, time post-transplant, and desired degree of immunosuppression. Performed By: #### T ACRO ####[facility] (DEFAULT)[address] [place] [address] CBC,PLATELETSon 09-01-2023 Hematocrit (Bld) [Volume fraction] 38.9 % Low 39.6-48.8 [facility] Comment on above: Performed By: #### H EMOGC ####[facility] (DEFAULT)[address] [place] [address] Hemoglobin (Bld) [Mass/Vol] 12.7 g/dL Low 13.4-16.8 [facility] Comment on above: Performed By: #### H EMOGC ####[facility] (DEFAULT)[address] [place] [address] MCV (RBC) [Entitic vol] 84.6 fL Normal 79.0-94.5 [facility] Comment on above: Performed By: #### H EMOGC ####[facility] (DEFAULT)[address] [place] [address] Mean Cell Hgb 27.6 pg Normal 26.1-33.3 [facility] Comment on above: Performed By: #### H EMOGC ####[facility] (DEFAULT)[address] [place] [address] Mean Cell Hgb Conc 32.6 g/dL Normal 31.9-36.5 [facility] Comment on above: Performed By: #### H EMOGC ####[facility] (DEFAULT)[address] [place] [address] Platelet mean volume (Bld) [Entitic vol] 9.4 fL Normal 8.7-12.3 [facility] Comment on above: Performed By: #### H EMOGC ####[facility] (DEFAULT)[address] [place] [address] Platelets (Bld) [#/Vol] 209 10*3/uL Normal 146-337 [facility] Comment on above: Performed By: #### H [facility] ####[facility] (DEFAULT)[address] [place] [address] RBC (Bld) [#/Vol] 4.60 10*6/uL Normal 4.38-5.83 [facility] Comment on above: Performed By: #### H EMO ####[facility] (DEFAULT)[address] [place] [address] RBC Distribution 13.4 % Normal 10.9-14.3 [facility] Comment on above: Performed By: #### H [facility] ####[facility] (DEFAULT)[address] [place] [address] WBC (Bld) [#/Vol] 4.41 10*3/uL Normal 3.73-10.10 [facility] Comment on above: Performed By: #### H [facility] ####[facility] (DEFAULT)[address] [place] [address] Erythrocyte distribution width (RBC) [Ratio] 13.4 % 10.9 - 14.3 % [facility] Hematocrit (Bld) [Volume fraction] 38.9 % Low 39.6 - 48.8 % [facility] Hemoglobin (Bld) [Mass/Vol] 12.7 g/dL Low 13.4 - 16.8 g/dL [facility] Interpretation and review of laboratory results Abnormal [facility] MCH (RBC) [Entitic mass] 27.6 pg 26.1 - 33.3 pg [facility] MCHC (RBC) [Mass/Vol] 32.6 g/dL 31.9 - 36.5 g/dL [facility] MCV (RBC) [Entitic vol] 84.6 fL 79.0 - 94.5 fL [facility] Platelet mean volume (Bld) [Entitic vol] 9.4 fL 8.7 - 12.3 fL [facility] Platelets (Bld) [#/Vol] 209 10*3/uL 146 - 337 K/uL [facility] RBC (Bld) [#/Vol] 4.60 10*6/uL [facility] WBC (Bld) [#/Vol] 4.41 10*3/uL 3.73 - 10. 10 K/uL [facility] CHEM 7 (LYTES,BUN,CREA,GLUC) on 09-01-2023 Anion gap [Moles/Vol] 14 mmol/L Normal 7-17 [facility] Comment on above: Performed By: #### NATHANIEL RAMÍREZ, HFP ####[facility] (DEFAULT)[address] [place] [address] Chloride [Moles/Vol] 103 mmol/L Normal 98-108 [facility] Comment on above: Performed By: #### NATHANIEL RAMÍREZ, HFP ####[facility] (DEFAULT)[address] [facility] [address] CO2 [Moles/Vol] 21 mmol/L Normal 21-31 [facility] Comment on above: Performed By: #### NATHANIEL RAMÍREZ, HFP ####[facility] (DEFAULT)[address] [place] [address] Creatinine [Mass/Vol] 1.16 mg/dL Normal 0.70-1.30 [facility] Comment on above: Performed By: #### NATHANIEL RAMÍREZ, HFP ####[facility] (DEFAULT)[address] [place] [address] GFR/1.73 sq M.predicted among non-blacks MDRD (S/P/Bld) [Vol rate/Area] 76 mL/min/{1.73_m2} Normal >=60 [facility] Comment on above: Result Comment: Repo rted eGFR is based on the CKD-EPI 2020 equation using creatinine, age, and sex. Performed By: #### NATHANIEL RAMÍREZ, HFP ####[facility] (DEFAULT)[address] [place] [address] Glucose [Mass/Vol] 117 mg/dL High 70-99 [facility] Comment on above: Performed By: #### NATHANIEL RAMÍREZ, HFP ####[facility] (DEFAULT)[address] [place] [address] Osmolality [Osmolality] 285 mosm/kg Normal 278-305 [facility] Comment on above: Performed By: #### NATHANIEL RAMÍREZ, HFP ####[facility] (DEFAULT)[address] [place] [address] Potassium [Moles/Vol] 4.2 mmol/L Normal 3.5-5.0 [facility] Comment on above: Performed By: #### NATHANIEL RAMÍREZ, HFP ####[facility] (DEFAULT)[address] [place] [address] Sodium [Moles/Vol] 134 mmol/L Low 135-145 [facility] Comment on above: Performed By: #### NATHANIEL RAMÍREZ, HFP ####[facility] (DEFAULT)[address] [place] [address] Urea nitrogen [Mass/Vol] 18 mg/dL Normal 7-25 [facility] Comment on above: Performed By: #### NATHANIEL RAMÍREZ, HFP ####[facility] (DEFAULT)[address] [place] [address] Urea nitrogen/Creatinine [Mass ratio] 16 mg/mg Normal [facility] Comment on above: Performed By: #### NATHANIEL RAMÍREZ, HFP ####[facility] (DEFAULT)[address] [place] [address] Anion gap [Moles/Vol] 14 mmol/L 7 - 17 mmol/L [facility] Chloride [Moles/Vol] 103 mmol/L 98 - 10 8 mmol/L [facility] CO2 [Moles/Vol] 21 mmol/L 21 - 31 mmol/L [facility] Creatinine [Mass/Vol] 1.16 mg/dL 0.70 - 1.30 mg/dL [facility] eGFR, CKD-EPI, Male 77 - PINF [facility] Glucose [Mass/Vol] 117 mg/dL High 70 - 99 mg/dL [facility] Osmolality Calc [Osmolality] 285 [facility] Potassium [Moles/Vol] 4.2 mmol/L 3.5 - 5.0 mmol/L [facility] Sodium [Moles/Vol] 134 mmol/L Low 135 - 145 mmol/L [facility] Urea nitrogen [Mass/Vol] 18 mg/dL 7 - 25 mg/dL [facility] Urea nitrogen/Creatinine [Mass ratio] 16 mg/mg [facility] CRYPTOCOCCAL ANTIGENon 09-01 Cryptococcus Antigen,Serum Negative Normal Negative [facility] Comment on above: Performed By: #### C RAG ####[facility] (DEFAULT)[address] [place] [address] Cryptococcus sp Ag Ql (S) Negative Negative [facility] Interpretation and review of laboratory results Normal [facility] HEPATIC FUNCTION PANELon Albumin [Mass/Vol] 3.3 g/dL Low 3.5-5.0 [facility] Comment on above: Performed By: #### M NATHANIEL BLOOM, HFP ####[facility] (DEFAULT)[address] [place] [address] ALP [Catalytic activity/Vol] 112 U/L Normal 32-126 [facility] Comment on above: Performed By: #### M NATHANIEL BLOOM, HFP ####[facility] (DEFAULT)[address] [place] [address] ALT [Catalytic activity/Vol] 21 U/L Normal 10-52 [facility] Comment on above: Performed By: #### M HELEN BLOOMM7, HFP ####[facility] (DEFAULT)[address] [place] [address] AST [Catalytic activity/Vol] 29 U/L Normal 10-39 [facility] Comment on above: Performed By: #### M HELEN BLOOMM7, HFP ####[facility] (DEFAULT)[address] [place] [address] Bilirubin [Mass/Vol] 1.0 mg/dL Normal <1.5 [facility] Comment on above: Performed By: #### M HELEN BLOOMM7, HFP ####[facility] (DEFAULT)[address] [place] [address] Bilirubin.indirect [Mass/Vol] 0.2 mg/dL Normal <0.3 [facility] Comment on above: Performed By: #### NATHANIEL RAMÍREZ, HFP ####[facility] (DEFAULT)[address] [place] [address] Protein [Mass/Vol] 6.8 g/dL Normal 6.4-8.3 [facility] Comment on above: Performed By: #### TJ RAMÍREZ7, HFP ####[facility] (DEFAULT)[address] [place] [address] Albumin [Mass/Vol] 3.3 g/dL Low 3.5 - 5.0 g/dL [facility] ALP [Catalytic activity/Vol] 112 U/L 32 - 126 U/L [facility] ALT [Catalytic activity/Vol] 21 U/L 10 - 52 U/L [facility] AST [Catalytic activity/Vol] 29 U/L 10 - 39 U/L [facility] Bilirubin [Mass/Vol] 1.0 mg/dL NINF - 1.5 mg/dL [facility] Bilirubin.direct [Mass/Vol] 0.2 mg/dL NINF - 0.3 mg/dL [facility] Protein [Mass/Vol] 6.8 g/dL 6.4 - 8.3 g/dL [facility] L. pneumophila 1 Ag IA Ql (U )Ordered By: Carolin Miles on 09-01-2023 Interpretation and review of laboratory results Normal [facility] LEGIONELLA URINARY AGOrdered By: Carolin Miles on 09-01-2023 L. pneumophila 1 Ag IA Ql (U) Negative Negative [facility] MAGNESIUMon 09-01-2023 Magnesium [Mass/Vol] 1.6 mg/dL Normal 1.6-2.6 [facility] Comment on above: Performed By: #### M , CHM7, [facility] ####[facility] (DEFAULT)[address] [place] [address] Interpretation and review of laboratory results Normal [facility] Magnesium [Mass/Vol] 1.6 mg/dL 1.6 - 2 .6 mg/dL [facility] No Panel Informationon 09-01 Interpretation and review of laboratory results Abnormal [facility] PARVOVIRUS (B19) DNA, PCR, B LOODon 09-01-2023 PARVOVIRUS B19 BY RAPID PCR Not detected Normal Not Detected [facility] Comment on above: Result Comment: The primers/probe used in this assay will detectparvovirus B19 and V9 (genotypes 1 # 3) but maynot detect parvovirus genotype 2. The majority ofcirculating Parvovirus B19 strains in the [facility] are genotype 1. Genotype 2 is not believed tocirculate widely in the [facility], but has beenassociated with similar clinical features as genotype1. Genotype 3 is most prevalent in some [facility] comprehensive health care facility[facility].This test was developed and its analyticalperformance characteristics have been determinedby [employer], [place], [place].It has not been cleared or approved by the FDA. Thisassay has been validated pursuant to the CLIAregulations and is used for clinical purposes.Test Performed at:[facility] [address] [place] [id number] Benavides M.D., Ph.D.,Director of Laboratories Performed By: #### Y PRVP ####[facility] (DEFAULT)[address] [facility] [address] UT SPEC SOURCE Whole Blood Normal [facility] Comment on above: Performed By: #### Y PRVP ####[facility] (DEFAULT)[address] [facility] [address] ASPERGILLUS (GALACTOMANNAN), ANTIGENon 08-31-2023 Aspergillus Antigen <0.500 Normal <0.5 [facility] Comment on above: Result Comment: ---- ADDITIONAL INFORMATION This is a qualitative test and the resulted index value isnot indicative of disease severity. Serial testing isrecommended for patients at high risk for invasiveaspergillosis.This assay was performed using the FDA-cleared [employer] Aspergillus Galactomannan EIA.Test Performed by:[address] [address]Zhi Director: Rosendo Bose M.D. Ph.D.; CLIA# [id number] Performed By: #### Y ASPR ####[facility] (DEFAULT)[address] [place] [address] CBC,PLATELETSon 08-31-2023 Hematocrit (Bld) [Volume fraction] 39.4 % Low 39.6-48.8 [facility] Comment on above: Performed By: #### H [facility] ####[facility] (DEFAULT)[address] [place] [address], [place] [address] Hemoglobin (Bld) [Mass/Vol] 12.8 g/dL Low 13.4-16.8 [facility] Comment on above: Performed By: #### H [facility] ####[facility] (DEFAULT)[address] [facility] [address] MCV (RBC) [Entitic vol] 85.1 fL Normal 79.0-94.5 [facility] Comment on above: Performed By: #### H EMOGC ####[facility] (DEFAULT)[address] [place] [address] Mean Cell Hgb 27.6 pg Normal 26.1-33.3 [facility] Comment on above: Performed By: #### H EMOGC ####[facility] (DEFAULT)[address] [place] [address] Mean Cell Hgb Conc 32.5 g/dL Normal 31.9-36.5 [facility] Comment on above: Performed By: #### H EMOGC ####[facility] (DEFAULT)[address] [place] [address] Platelet mean volume (Bld) [Entitic vol] 9.6 fL Normal 8.7-12.3 [facility] Comment on above: Performed By: #### H EMOGC ####[facility] (DEFAULT)[address] [place] [address] Platelets (Bld) [#/Vol] 228 10*3/uL Normal 146-337 [facility] Comment on above: Performed By: #### H EMOGC ####[facility] (DEFAULT)[address] [place] [address] RBC (Bld) [#/Vol] 4.63 10*6/uL Normal 4.38-5.83 [facility] Comment on above: Performed By: #### H EMOGC ####[facility] (DEFAULT)[address] [place] [address] RBC Distribution 13.3 % Normal 10.9-14.3 [facility] Comment on above: Performed By: #### H EMOGC ####[facility] (DEFAULT)[address] [place] [address] WBC (Bld) [#/Vol] 4.77 10*3/uL Normal 3.73-10.10 [facility] Comment on above: Performed By: #### H EMOGC ####[facility] (DEFAULT)[address] [place] [address] Erythrocyte distribution width (RBC) [Ratio] 13.3 % 10.9 - 14.3 % [facility] Hematocrit (Bld) [Volume fraction] 39.4 % Low 39.6 - 48.8 % [facility] Hemoglobin (Bld) [Mass/Vol] 12.8 g/dL Low 13.4 - 16.8 g/dL [facility] Interpretation and review of laboratory results Abnormal [facility] MCH (RBC) [Entitic mass] 27.6 pg 26.1 - 33.3 pg [facility] MCHC (RBC) [Mass/Vol] 32.5 g/dL 31.9 - 36.5 g/dL [facility] MCV (RBC) [Entitic vol] 85.1 fL 79.0 - 94.5 fL [facility] Platelet mean volume (Bld) [Entitic vol] 9.6 fL 8.7 - 12.3 fL [facility] Platelets (Bld) [#/Vol] 228 10*3/uL 146 - 337 K/uL [facility] RBC (Bld) [#/Vol] 4.63 10*6/uL [facility] WBC (Bld) [#/Vol] 4.77 10*3/uL 3.73 - 10. 10 K/uL [facility] CHEM 7 (LYTES,BUN,CREA,GLUC) on 08-31-2023 Anion gap [Moles/Vol] 13 mmol/L Normal 7-17 [facility] Comment on above: Performed By: #### M NATHANIEL BLOOM, HFP, FERIB, PROCAL ####[facility] (DEFAULT)[address] [place] [address] Chloride [Moles/Vol] 102 mmol/L Normal 98-108 [facility] Comment on above: Performed By: #### M HELEN BLOOMM7, HFP, FERIB, PROCAL ####[facility] (DEFAULT)[address] [place] [address] CO2 [Moles/Vol] 23 mmol/L Normal 21-31 [facility] Comment on above: Performed By: #### M GO, CHM7, HFP, FERIB, PROCAL ####[facility] (DEFAULT)[address] [place] [address] Creatinine [Mass/Vol] 1.37 mg/dL High 0.70-1.30 [facility] Comment on above: Performed By: #### M MERLE, CHM7, HFP, FERIB, PROCAL ####[facility] (DEFAULT)[address] [place] [address] GFR/1.73 sq M.predicted among non-blacks MDRD (S/P/Bld) [Vol rate/Area] 62 mL/min/{1.73_m2} Normal >=60 [facility] Comment on above: Result Comment: Repo rted eGFR is based on the CKD-EPI 2020 equation using creatinine, age, and sex. Performed By: #### M MERLE CHM7, HFP, FERIB, PROCAL ####[facility] (DEFAULT)[address] [facility] [address] Glucose [Mass/Vol] 112 mg/dL High 70-99 [facility] Comment on above: Performed By: #### M MERLE CHM7, HFP, FERIB, PROCAL ####[facility] (DEFAULT)[address] [place] [address] Osmolality [Osmolality] 284 mosm/kg Normal 278-305 [facility] Comment on above: Performed By: #### Rod BLOOM CHM7, HFP, FERIB, PROCAL ####[facility] (DEFAULT)[address] [place] [address] Potassium [Moles/Vol] 4.4 mmol/L Normal 3.5-5.0 [facility] Comment on above: Performed By: #### M GO, CHM7, HFP, FERIB, PROCAL ####[facility] (DEFAULT)[address] [facility] [address] Sodium [Moles/Vol] 134 mmol/L Low 135-145 [facility] Comment on above: Performed By: #### M GO, CHM7, HFP, FERIB, PROCAL ####[facility] (DEFAULT)[address] [place] [address] Urea nitrogen [Mass/Vol] 16 mg/dL Normal 7-25 [facility] Comment on above: Performed By: #### M GO, CHM7, HFP, FERIB, PROCAL ####[facility] (DEFAULT)[address] [facility] [address] Urea nitrogen/Creatinine [Mass ratio] 12 mg/mg Normal [facility] Comment on above: Performed By: #### M GO, CHM7, HFP, FERIB, PROCAL ####[facility] (DEFAULT)[address] [place] [address] Anion gap [Moles/Vol] 13 mmol/L 7 - 17 mmol/L [facility] Chloride [Moles/Vol] 102 mmol/L 98 - 10 8 mmol/L [facility] CO2 [Moles/Vol] 23 mmol/L 21 - 31 mmol/L [facility] Creatinine [Mass/Vol] 1.37 mg/dL High 0.70 - 1.30 mg/dL [facility] eGFR, CKD-EPI, Male 63 - PINF [facility] Glucose [Mass/Vol] 112 mg/dL High 70 - 99 mg/dL [facility] Osmolality Calc [Osmolality] 284 [facility] Potassium [Moles/Vol] 4.4 mmol/L 3.5 - 5.0 mmol/L [facility] Sodium [Moles/Vol] 134 mmol/L Low 135 - 145 mmol/L [facility] Urea nitrogen [Mass/Vol] 16 mg/dL 7 - 25 mg/dL [facility] Urea nitrogen/Creatinine [Mass ratio] 12 mg/mg [facility] CT ABDOMEN/PELVIS WITHOUT CO NTRASTon 08-31-2023 CT ABDOMEN/PELVIS WITHOUT CONTRAST Normal [facility] CT Abdomen and Pelvis WO con traston 08-31-2023 RADIOLOGY RADIOLOGY [facility] Radiology Study observation (narrative) [facility] CT Abdomen and Pelvis WO con trastOrdered By: Chavez Larkin on 08-31-2023 [facility] Work Phone: CT CHEST WITHOUT CONTRASTon 08-31-2023 CT CHEST WITHOUT CONTRAST Normal [facility] CT Chest WO contraston 08-31 RADIOLOGY RADIOLOGY [facility] Radiology Study observation (narrative) [facility] CT Chest WO contrastOrdered By: Daisha Patterson on 08-31-2023 [facility] Work Phone: FERRITINon 08-31-2023 Ferritin [Mass/Vol] 409.0 ng/mL High 10.5 - 3 07.3 ng/mL [facility] Interpretation and review of laboratory results Abnormal [facility] Ferritin [Mass/Vol] 409.0 ng/mL High 10.5-307.3 [facility] Comment on above: Performed By: #### M MERLE CHM7, HFP, FERIB, PROCAL ####[facility] (DEFAULT)[address] [place] [address] HEPATIC FUNCTION PANELon Albumin [Mass/Vol] 3.3 g/dL Low 3.5-5.0 [facility] Comment on above: Performed By: #### M MERLE CHM7, HFP, FERIB, PROCAL ####[facility] (DEFAULT)[address] [place] [address] ALP [Catalytic activity/Vol] 113 U/L Normal 32-126 [facility] Comment on above: Performed By: #### M MERLE CHM7, HFP, FERIB, PROCAL ####[facility] (DEFAULT)[address] [place] [address] ALT [Catalytic activity/Vol] 25 U/L Normal 10-52 [facility] Comment on above: Performed By: #### M GO, CHM7, HFP, FERIB, PROCAL ####[facility] (DEFAULT)[address] [place] [address] AST [Catalytic activity/Vol] 31 U/L Normal 10-39 [facility] Comment on above: Performed By: #### M GO, CHM7, HFP, FERIB, PROCAL ####[facility] (DEFAULT)[address] [place] [address] Bilirubin [Mass/Vol] 1.1 mg/dL Normal <1.5 [facility] Comment on above: Performed By: #### M GO, CHM7, HFP, FERIB, PROCAL ####[facility] (DEFAULT)[address] [place] [address] Bilirubin.indirect [Mass/Vol] 0.3 mg/dL High <0.3 [facility] Comment on above: Performed By: #### M GO, CHM7, HFP, FERIB, PROCAL ####[facility] (DEFAULT)[address] [place] [address] Protein [Mass/Vol] 7.0 g/dL Normal 6.4-8.3 [facility] Comment on above: Performed By: #### M GO, CHM7, HFP, FERIB, PROCAL ####[facility] (DEFAULT)[address] [place] [address] Albumin [Mass/Vol] 3.3 g/dL Low 3.5 - 5.0 g/dL [facility] ALP [Catalytic activity/Vol] 113 U/L 32 - 126 U/L [facility] ALT [Catalytic activity/Vol] 25 U/L 10 - 52 U/L [facility] AST [Catalytic activity/Vol] 31 U/L 10 - 39 U/L [facility] Bilirubin [Mass/Vol] 1.1 mg/dL NINF - 1.5 mg/dL [facility] Bilirubin.direct [Mass/Vol] 0.3 mg/dL High NINF - 0.3 mg/dL [facility] Protein [Mass/Vol] 7.0 g/dL 6.4 - 8.3 g/dL [facility] LEGIONELLA URINARY AGon Legionella Urinary Antigen Negative Normal Negative [facility] Comment on above: Performed By: #### L EGION ####[facility] (DEFAULT)[address] [place] [address] MAGNESIUMon 08-31-2023 Magnesium [Mass/Vol] 1.7 mg/dL Normal 1.6-2.6 [facility] Comment on above: Performed By: #### M GO, CHM7, HFP, FERIB, PROCAL ####[facility] (DEFAULT)[address] [place] [address] Interpretation and review of laboratory results Normal [facility] Magnesium [Mass/Vol] 1.7 mg/dL 1.6 - 2 .6 mg/dL [facility] No Panel Informationon 08-31 Interpretation and review of laboratory results Abnormal [facility] PROCALCITONINon 08-31-2023 Interpretation and review of laboratory results Normal [facility] Procalcitonin [Mass/Vol] 0.23 ng/mL NINF - 0.50 ng/mL [facility] Procalcitonin 0.23 ng/mL Normal <0.50 [facility] Comment on above: Result Comment: [...] and trend procalcitonin in various clinical settings. https://[employer]/departments/[email or web address]?sourcedoc=/departments/[email or web address]/Documents/[email or web address] [email or web address].docx&action=default&DefaultItemOpen=1Two common cutoffs associated with bacterial infections are as follows.Respiratory tract infections: >0.25 ng/mLSepsis/septic shock: >0.5 ng/mLProcalcitonin should not be used alone as a diagnostic tool, however. All procalcitonin results should be interpreted in association with the patients clinical condition and all laboratory findings. Performed By: #### M MERLE, NATHANIEL, TAVO, ANG DOMINIQUE ####[facility] (DEFAULT)[address] [place] [address] TACROLIMUS LEVEL, TROUGH (UT E DRUG LEVEL)Ordered By: Yanira Marcum on 08-31-2023 Interpretation and review of laboratory results Normal [facility] Tacrolimus (Bld) [Mass/Vol] 5.9 ng/mL [facility] TACROLIMUS LEVEL, TROUGH (UT E DRUG LEVEL)on 08-31-2023 Tacrolimus, Trough 5.9 ng/mL Normal Bone Susana ow Transplant: 4.0-12.0, Therapeutic: 5.0-15.0 [facility] Comment on above: Order Comment: Pleas e draw at specified interval PRIOR to dose. Do not hold dose to wait for level. Specimens batched twice per day, (M-F) and once per day weekendsMethod performed is a chemiluminescent microparticle immunoasssay on the [employer] i2000.The range is based on experience at [facility] and users should be aware that target concentrations vary widely depending on concomitant therapy, time post-transplant, and desired degree of immunosuppression. Performed By: #### T ACRO ####[facility] (DEFAULT)[address] [place] [address] URINE CULTUREOrdered By: Jorge crowe Held on 08-31-2023 Bacteria identified Cx Nom (Unsp spec) No Growth [facility] DARYL AURIS SCREEN BY PCRO rdered By: Mynor Alejandro on 08-30-2023 Daryl auris Screen by PCR Not detected Not Detected [facility] Interpretation and review of laboratory results Normal [facility] CBC,PLATELETSon 08-30-2023 Hematocrit (Bld) [Volume fraction] 41.3 % Normal 39.6-48.8 [facility] Comment on above: Performed By: #### H EMOGC ####[facility] (DEFAULT)[address] [place] [address] Hemoglobin (Bld) [Mass/Vol] 13.2 g/dL Low 13.4-16.8 [facility] Comment on above: Performed By: #### H EMOGC ####[facility] (DEFAULT)[address] [place] [address] MCV (RBC) [Entitic vol] 85.5 fL Normal 79.0-94.5 [facility] Comment on above: Performed By: #### H EMOGC ####[facility] (DEFAULT)[address] [place] [address] Mean Cell Hgb 27.3 pg Normal 26.1-33.3 [facility] Comment on above: Performed By: #### H EMOGC ####[facility] (DEFAULT)[address] [place] [address] Mean Cell Hgb Conc 32.0 g/dL Normal 31.9-36.5 [facility] Comment on above: Performed By: #### H EMOGC ####[facility] (DEFAULT)[address] [place] [address] Platelet mean volume (Bld) [Entitic vol] 9.2 fL Normal 8.7-12.3 [facility] Comment on above: Performed By: #### H EMOGC ####[facility] (DEFAULT)[address] [place] [address] Platelets (Bld) [#/Vol] 235 10*3/uL Normal 146-337 [facility] Comment on above: Performed By: #### H EMO ####[facility] (DEFAULT)[address] [place] [address] RBC (Bld) [#/Vol] 4.83 10*6/uL Normal 4.38-5.83 [facility] Comment on above: Performed By: #### H EMO ####[facility] (DEFAULT)[address] [place] [address] RBC Distribution 13.3 % Normal 10.9-14.3 [facility] Comment on above: Performed By: #### H EMO ####[facility] (DEFAULT)[address] [place] [address] WBC (Bld) [#/Vol] 4.96 10*3/uL Normal 3.73-10.10 [facility] Comment on above: Performed By: #### H [facility] ####[facility] (DEFAULT)[address] [place] [address] Erythrocyte distribution width (RBC) [Ratio] 13.3 % 10.9 - 14.3 % [facility] Hematocrit (Bld) [Volume fraction] 41.3 % 39.6 - 48.8 % [facility] Hemoglobin (Bld) [Mass/Vol] 13.2 g/dL Low 13.4 - 16.8 g/dL [facility] Interpretation and review of laboratory results Abnormal [facility] MCH (RBC) [Entitic mass] 27.3 pg 26.1 - 33.3 pg [facility] MCHC (RBC) [Mass/Vol] 32.0 g/dL 31.9 - 36.5 g/dL [facility] MCV (RBC) [Entitic vol] 85.5 fL 79.0 - 94.5 fL [facility] Platelet mean volume (Bld) [Entitic vol] 9.2 fL 8.7 - 12.3 fL [facility] Platelets (Bld) [#/Vol] 235 10*3/uL 146 - 337 K/uL [facility] RBC (Bld) [#/Vol] 4.83 10*6/uL [facility] WBC (Bld) [#/Vol] 4.96 10*3/uL 3.73 - 10. 10 K/uL [facility] CHEM 7 (LYTES,BUN,CREA,GLUC) on 08-30-2023 Anion gap [Moles/Vol] 14 mmol/L Normal 7-17 [facility] Comment on above: Performed By: #### NATHANIEL RAMÍREZ, HFP ####[facility] (DEFAULT)[address] [facility] [address] Chloride [Moles/Vol] 102 mmol/L Normal 98-108 [facility] Comment on above: Performed By: #### NATHANIEL RAMÍREZ, HFP ####[facility] (DEFAULT)[address] [place] [address] CO2 [Moles/Vol] 20 mmol/L Low 21-31 [facility] Comment on above: Performed By: #### NATHANIEL RAMÍREZ, HFP ####[facility] (DEFAULT)[address] [facility] [place] [address] Creatinine [Mass/Vol] 1.56 mg/dL High 0.70-1.30 [facility] Comment on above: Performed By: #### NATHANIEL RAMÍREZ, HFP ####[facility] (DEFAULT)[address] [place] [address] GFR/1.73 sq M.predicted among non-blacks MDRD (S/P/Bld) [Vol rate/Area] 53 mL/min/{1.73_m2} Low >=60 [facility] Comment on above: Result Comment: Repo rted eGFR is based on the CKD-EPI 2020 equation using creatinine, age, and sex. Performed By: #### NATHANIEL RAMÍREZ, HFP ####[facility] (DEFAULT)[address] [place] [address] Glucose [Mass/Vol] 123 mg/dL High 70-99 [facility] Comment on above: Performed By: #### NATHANIEL RAMÍREZ, HFP ####[facility] (DEFAULT)[address] [place] [address] Osmolality [Osmolality] 281 mosm/kg Normal 278-305 [facility] Comment on above: Performed By: #### NATHANIEL RAMÍREZ, HFP ####[facility] (DEFAULT)[address] [place] [address] Potassium [Moles/Vol] 4.3 mmol/L Normal 3.5-5.0 [facility] Comment on above: Performed By: #### NATHANIEL RAMÍREZ, HFP ####[facility] (DEFAULT)[address] [place] [address] Sodium [Moles/Vol] 132 mmol/L Low 135-145 [facility] Comment on above: Performed By: #### NATHANIEL RAMÍREZ, HFP ####[facility] (DEFAULT)[address] [place] [address] Urea nitrogen [Mass/Vol] 16 mg/dL Normal 7-25 [facility] Comment on above: Performed By: #### NATHANIEL RAMÍREZ, HFP ####[facility] (DEFAULT)[address] [place] [address] Urea nitrogen/Creatinine [Mass ratio] 10 mg/mg Normal [facility] Comment on above: Performed By: #### NATHANIEL RAMÍREZ, HFP ####[facility] (DEFAULT)[address] [place] [address] Anion gap [Moles/Vol] 14 mmol/L 7 - 17 mmol/L [facility] Chloride [Moles/Vol] 102 mmol/L 98 - 10 8 mmol/L [facility] CO2 [Moles/Vol] 20 mmol/L Low 21 - 31 mmol/L [facility] Creatinine [Mass/Vol] 1.56 mg/dL High 0.70 - 1.30 mg/dL [facility] eGFR, CKD-EPI, Male 54 Low - PINF [facility] Glucose [Mass/Vol] 123 mg/dL High 70 - 99 mg/dL [facility] Osmolality Calc [Osmolality] 281 [facility] Potassium [Moles/Vol] 4.3 mmol/L 3.5 - 5.0 mmol/L [facility] Sodium [Moles/Vol] 132 mmol/L Low 135 - 145 mmol/L [facility] Urea nitrogen [Mass/Vol] 16 mg/dL 7 - 25 mg/dL [facility] Urea nitrogen/Creatinine [Mass ratio] 10 mg/mg [facility] EXTRA MICROon 08-30-2023 [facility] HEPATIC FUNCTION PANELon Albumin [Mass/Vol] 3.7 g/dL Normal 3.5-5.0 [facility] Comment on above: Performed By: #### NATHANIEL RAMÍREZ, HFP ####[facility] (DEFAULT)[address] [place] [address] ALP [Catalytic activity/Vol] 115 U/L Normal 32-126 [facility] Comment on above: Performed By: #### NATHANIEL RAMÍREZ, HFP ####[facility] (DEFAULT)[address] [place] [address] ALT [Catalytic activity/Vol] 22 U/L Normal 10-52 [facility] Comment on above: Performed By: #### NATHANIEL RAMÍREZ, HFP ####[facility] (DEFAULT)[address] [place] [address] AST [Catalytic activity/Vol] 34 U/L Normal 10-39 [facility] Comment on above: Performed By: #### NATHANIEL RAMÍREZ, HFP ####[facility] (DEFAULT)[address] [place] [address] Bilirubin [Mass/Vol] 1.2 mg/dL Normal <1.5 [facility] Comment on above: Performed By: #### M NATHANIEL BLOOM, HFP ####[facility] (DEFAULT)[address] [place] [address] Bilirubin.indirect [Mass/Vol] 0.3 mg/dL High <0.3 [facility] Comment on above: Performed By: #### M NATHANIEL BLOOM, HFP ####[facility] (DEFAULT)[address] [place] [address] Protein [Mass/Vol] 7.7 g/dL Normal 6.4-8.3 [facility] Comment on above: Performed By: #### M NATHANIEL BLOOM, HFP ####[facility] (DEFAULT)[address] [place] [address] Albumin [Mass/Vol] 3.7 g/dL 3.5 - 5.0 g/dL [facility] ALP [Catalytic activity/Vol] 115 U/L 32 - 126 U/L [facility] ALT [Catalytic activity/Vol] 22 U/L 10 - 52 U/L [facility] AST [Catalytic activity/Vol] 34 U/L 10 - 39 U/L [facility] Bilirubin [Mass/Vol] 1.2 mg/dL NINF - 1.5 mg/dL [facility] Bilirubin.direct [Mass/Vol] 0.3 mg/dL High NINF - 0.3 mg/dL [facility] Protein [Mass/Vol] 7.7 g/dL 6.4 - 8.3 g/dL [facility] MAGNESIUMon 08-30-2023 Magnesium [Mass/Vol] 1.8 mg/dL Normal 1.6-2.6 [facility] Comment on above: Performed By: #### M NATHANIEL BLOOM, HFP ####[facility] (DEFAULT)[address] [place] [address] Interpretation and review of laboratory results Normal [facility] Magnesium [Mass/Vol] 1.8 mg/dL 1.6 - 2 .6 mg/dL [facility] No Panel Informationon 08-30 Interpretation and review of laboratory results Abnormal [facility] CBC,PLATELETSon 08-29-2023 Hematocrit (Bld) [Volume fraction] 37.6 % Low 39.6-48.8 [facility] Comment on above: Performed By: #### H EMOGC ####[facility] (DEFAULT)[address] [place] [address] Hemoglobin (Bld) [Mass/Vol] 12.2 g/dL Low 13.4-16.8 [facility] Comment on above: Performed By: #### H EMOGC ####[facility] (DEFAULT)[address] [place] [address] MCV (RBC) [Entitic vol] 85.1 fL Normal 79.0-94.5 [facility] Comment on above: Performed By: #### H EMOGC ####[facility] (DEFAULT)[address] [place] [address] Mean Cell Hgb 27.6 pg Normal 26.1-33.3 [facility] Comment on above: Performed By: #### H EMOGC ####[facility] (DEFAULT)[address] [place] [address] Mean Cell Hgb Conc 32.4 g/dL Normal 31.9-36.5 [facility] Comment on above: Performed By: #### H EMOGC ####[facility] (DEFAULT)[address] [place] [address] Platelet mean volume (Bld) [Entitic vol] 9.4 fL Normal 8.7-12.3 [facility] Comment on above: Performed By: #### H EMOGC ####[facility] (DEFAULT)[address] [facility] [address] Platelets (Bld) [#/Vol] 233 10*3/uL Normal 146-337 [facility] Comment on above: Performed By: #### H EMO ####[facility] (DEFAULT)[address] [facility] [address] RBC (Bld) [#/Vol] 4.42 10*6/uL Normal 4.38-5.83 [facility] Comment on above: Performed By: #### H [facility] ####[facility] (DEFAULT)[address] [facility] [address] RBC Distribution 13.4 % Normal 10.9-14.3 [facility] Comment on above: Performed By: #### H [facility] ####[facility] (DEFAULT)[address] [facility] [address] WBC (Bld) [#/Vol] 4.92 10*3/uL Normal 3.73-10.10 [facility] Comment on above: Performed By: #### H [facility] ####[facility] (DEFAULT)[address] [facility] [address] Erythrocyte distribution width (RBC) [Ratio] 13.4 % 10.9 - 14.3 % [facility] Hematocrit (Bld) [Volume fraction] 37.6 % Low 39.6 - 48.8 % [facility] Hemoglobin (Bld) [Mass/Vol] 12.2 g/dL Low 13.4 - 16.8 g/dL [facility] Interpretation and review of laboratory results Abnormal [facility] MCH (RBC) [Entitic mass] 27.6 pg 26.1 - 33.3 pg [facility] MCHC (RBC) [Mass/Vol] 32.4 g/dL 31.9 - 36.5 g/dL [facility] MCV (RBC) [Entitic vol] 85.1 fL 79.0 - 94.5 fL [facility] Platelet mean volume (Bld) [Entitic vol] 9.4 fL 8.7 - 12.3 fL [facility] Platelets (Bld) [#/Vol] 233 10*3/uL 146 - 337 K/uL [facility] RBC (Bld) [#/Vol] 4.42 10*6/uL [facility] WBC (Bld) [#/Vol] 4.92 10*3/uL 3.73 - 10. 10 K/uL [facility] CHEM 7 (LYTES,BUN,CREA,GLUC) on 08-29-2023 Anion gap [Moles/Vol] 13 mmol/L Normal 7-17 [facility] Comment on above: Performed By: #### H FP, GGTB, MGO, CHM7 ####[facility] (DEFAULT)[address] [place] [address] Chloride [Moles/Vol] 105 mmol/L Normal 98-108 [facility] Comment on above: Performed By: #### H FP, GGTB, MGO, CHM7 ####[facility] (DEFAULT)[address] [place] [address] CO2 [Moles/Vol] 20 mmol/L Low 21-31 [facility] Comment on above: Performed By: #### H FP, GGTB, MGO, CHM7 ####[facility] (DEFAULT)[address] [place] [address] Creatinine [Mass/Vol] 1.55 mg/dL High 0.70-1.30 [facility] Comment on above: Performed By: #### H FP, GGTB, MGO, CHM7 ####[facility] (DEFAULT)[address] [place] [address] GFR/1.73 sq M.predicted among non-blacks MDRD (S/P/Bld) [Vol rate/Area] 54 mL/min/{1.73_m2} Low >=60 [facility] Comment on above: Result Comment: Repo rted eGFR is based on the CKD-EPI 2020 equation using creatinine, age, and sex. Performed By: #### H FP, GGTB, MGO, CHM7 ####[facility] (DEFAULT)[address] [place] [address] Glucose [Mass/Vol] 108 mg/dL High 70-99 [facility] Comment on above: Performed By: #### H FP, GGTB, MGO, CHM7 ####[facility] (DEFAULT)[address] [place] [address] Osmolality [Osmolality] 283 mosm/kg Normal 278-305 [facility] Comment on above: Performed By: #### H FP, GGTB, MGO, CHM7 ####[facility] (DEFAULT)[address] [place] [address] Potassium [Moles/Vol] 4.5 mmol/L Normal 3.5-5.0 [facility] Comment on above: Performed By: #### H FP, GGTB, MGO, CHM7 ####[facility] (DEFAULT)[address] [place] [address] Sodium [Moles/Vol] 133 mmol/L Low 135-145 [facility] Comment on above: Performed By: #### H FP, GGTB, MGO, CHM7 ####[facility] (DEFAULT)[address] [place] [address] Urea nitrogen [Mass/Vol] 19 mg/dL Normal 7-25 [facility] Comment on above: Performed By: #### H FP, GGTB, MGO, CHM7 ####[facility] (DEFAULT)[address] [place] [address] Urea nitrogen/Creatinine [Mass ratio] 12 mg/mg Normal [facility] Comment on above: Performed By: #### H FP, GGTB, MGO, CHM7 ####[facility] (DEFAULT)[address] [place] [address] Anion gap [Moles/Vol] 13 mmol/L 7 - 17 mmol/L [facility] Chloride [Moles/Vol] 105 mmol/L 98 - 10 8 mmol/L [facility] CO2 [Moles/Vol] 20 mmol/L Low 21 - 31 mmol/L [facility] Creatinine [Mass/Vol] 1.55 mg/dL High 0.70 - 1.30 mg/dL [facility] eGFR, CKD-EPI, Male 55 Low - PINF [facility] Glucose [Mass/Vol] 108 mg/dL High 70 - 99 mg/dL [facility] Osmolality Calc [Osmolality] 283 [facility] Potassium [Moles/Vol] 4.5 mmol/L 3.5 - 5.0 mmol/L [facility] Sodium [Moles/Vol] 133 mmol/L Low 135 - 145 mmol/L [facility] Urea nitrogen [Mass/Vol] 19 mg/dL 7 - 25 mg/dL [facility] Urea nitrogen/Creatinine [Mass ratio] 12 mg/mg [facility] GGTon 08-29-2023 Gamma glutamyl transferase [Catalytic activity/Vol] 64 U/L 8 - 64 U/L [facility] Interpretation and review of laboratory results Normal [facility] Gamma glutamyl transferase [Catalytic activity/Vol] 64 U/L Normal 8-64 [facility] Comment on above: Performed By: #### H FP, GGTB, MGO, CHM7 ####[facility] (DEFAULT)[address] [place] [address] HEPATIC FUNCTION PANELon Albumin [Mass/Vol] 3.3 g/dL Low 3.5-5.0 [facility] Comment on above: Performed By: #### H FP, GGTB, MGO, CHM7 ####[facility] (DEFAULT)[address] [place] [address] ALP [Catalytic activity/Vol] 103 U/L Normal 32-126 [facility] Comment on above: Performed By: #### H FP, GGTB, MGO, CHM7 ####[facility] (DEFAULT)[address] [place] [address] ALT [Catalytic activity/Vol] 18 U/L Normal 10-52 [facility] Comment on above: Performed By: #### H FP, GGTB, MGO, CHM7 ####[facility] (DEFAULT)[address] [place] [address] AST [Catalytic activity/Vol] 27 U/L Normal 10-39 [facility] Comment on above: Performed By: #### H FP, GGTB, MGO, CHM7 ####[facility] (DEFAULT)[address] [place] [address] Bilirubin [Mass/Vol] 1.1 mg/dL Normal <1.5 [facility] Comment on above: Performed By: #### H FP, GGTB, MGO, CHM7 ####[facility] (DEFAULT)[address] [place] [address] Bilirubin.indirect [Mass/Vol] 0.3 mg/dL High <0.3 [facility] Comment on above: Performed By: #### H FP, GGTB, MGO, CHM7 ####[facility] (DEFAULT)[address] [place] [address] Protein [Mass/Vol] 6.8 g/dL Normal 6.4-8.3 [facility] Comment on above: Performed By: #### H FP, GGTB, MGO, CHM7 ####[facility] (DEFAULT)[address] [place] [address] Albumin [Mass/Vol] 3.3 g/dL Low 3.5 - 5.0 g/dL [facility] ALP [Catalytic activity/Vol] 103 U/L 32 - 126 U/L [facility] ALT [Catalytic activity/Vol] 18 U/L 10 - 52 U/L [facility] AST [Catalytic activity/Vol] 27 U/L 10 - 39 U/L [facility] Bilirubin [Mass/Vol] 1.1 mg/dL NINF - 1.5 mg/dL [facility] Bilirubin.direct [Mass/Vol] 0.3 mg/dL High NINF - 0.3 mg/dL [facility] Protein [Mass/Vol] 6.8 g/dL 6.4 - 8.3 g/dL [facility] HISTOPLASMA AND BLASTOMYCES ANTIGEN, ENZYME IMMUNOASSAY, SERMon 08-29-2023 Histoplasma/Blastomy antonia Ag Result Detected Invalid Interpretation Code Not Detected [facility] Comment on above: Result Comment: Anti gen from Histoplasma or Blastomyces (unable todifferentiate) detected. Result should be correlated withclinical presentation, exposure history, and otherdiagnostic procedures, including culture, serology,histopathology, and/or radiographic findings, to aid in thedifferentiation between histoplasmosis and blastomycosis.CRITICAL RESULT Performed By: #### H ILYAG ####[facility] (DEFAULT)[address] [place] [address] Histoplasma/Blastomy antonia Ag Value 5.3 ng/mL Normal [facility] Comment on above: Result Comment: ---- ADDITIONAL INFORMATION This test was developed and its performance characteristicsdetermined by [facility] in a manner consistent with CLIArequirements. This test has not been cleared or approved bythe U.S. Food and Drug Administration.Test Performed by:[facility] - [address] [address] Director: Rosendo Bose M.D. Ph.D.; CLIA# [id number] Performed By: #### H IBAG ####[facility] (DEFAULT)[address] [place] [address] HISTOPLASMA ANTIGEN,URINEon 08-29-2023 HISTOPLASM AG, URINE Not detected Normal Not Detected [facility] Comment on above: Result Comment: No H istoplasma antigen detected.False negative results may occur. Repeat testing on anew specimen should be considered if clinically indicated. Performed By: #### Y HISTG ####[facility] (DEFAULT)[address] [place] [address] Histoplasma Ag Value Not detected Normal [facility] Comment on above: Result Comment: ---- ADDITIONAL INFORMATION This test has been modified from the clinical advisor'sinstructions. Its performance characteristics weredetermined by [facility] in a manner consistent withCLIA requirements. This test has not been cleared orapproved by the U.S. Food and Drug Administration.Test Performed by:[address] Director: Rosendo Bose M.D. Ph.D.; CLIA# [id number] Performed By: #### Y HISTG ####[facility] (DEFAULT)[address] [place] [address] MAGNESIUMon 08-29-2023 Magnesium [Mass/Vol] 1.7 mg/dL Normal 1.6-2.6 [facility] Comment on above: Performed By: #### H FP, GGTB, MGO, CHM7 ####[facility] (DEFAULT)[address] [place] [address] Interpretation and review of laboratory results Normal [facility] Magnesium [Mass/Vol] 1.7 mg/dL 1.6 - 2 .6 mg/dL [facility] No Panel Informationon 08-29 Interpretation and review of laboratory results Abnormal [facility] PT,INR,PTTon 08-29-2023 aPTT Coag (Bld) [Time] 29.3 s Normal 24.0-34.3 [facility] Comment on above: Performed By: #### P TPTT ####[facility] (DEFAULT)[address] [facility] [address] INR Coag (PPP) [Relative time] 1.1 {INR} Normal 0.9-1.1 [facility] Comment on above: Performed By: #### P TPTT ####[facility] (DEFAULT)[address] [place] [address] PT Coag (PPP) [Time] 13.8 s Normal 11.9-14.2 [facility] Comment on above: Performed By: #### P TPTT ####[facility] (DEFAULT)[address] [facility] [address] aPTT Coag (PPP) [Time] 29.3 s [facility] INR Coag (Bld) [Relative time] 1.1 {INR} 0.9 - 1.1 [facility] Interpretation and review of laboratory results Normal [facility] PT Coag (PPP) [Time] 13.8 s [facility] Portable XR Chest Viewson RADIOLOGY RADIOLOGY [facility] Portable XR Chest ViewsOrder ed By: Gerald Baer on 08-29-2023 [facility] Work Phone: TACROLIMUS LEVEL, TROUGH (UT E DRUG LEVEL)on 08-29-2023 Interpretation and review of laboratory results Normal [facility] Tacrolimus (Bld) [Mass/Vol] 8.9 ng/mL [facility] Tacrolimus, Trough 8.9 ng/mL Normal [facility]ana ow Transplant: 4.0-12.0, Therapeutic: 5.0-15.0 [facility] Comment on above: Order Comment: Pleas e draw at specified interval PRIOR to dose. Do not hold dose to wait for level. Specimens batched twice per day, (M-F) and once per day weekendsMethod performed is a chemiluminescent microparticle immunoasssay on the [employer] i2000.The range is based on experience at [facility] and users should be aware that target concentrations vary widely depending on concomitant therapy, time post-transplant, and desired degree of immunosuppression. Performed By: #### T ACRO ####[facility] (DEFAULT)[address] [facility] [address] Tacrolimus, Trough 8.7 ng/mL Normal [facility] Transplant: 4.0-12.0, Therapeutic: 5.0-15.0 [facility] Comment on above: Order Comment: Pleas e draw at specified interval PRIOR to dose. Do not hold dose to wait for level. Specimens batched twice per day, (M-) and once per day weekendsMethod performed is a chemiluminescent microparticle immunoasssay on the [employer] i2000.The range is based on experience at [facility] and users should be aware that target concentrations vary widely depending on concomitant therapy, time post-transplant, and desired degree of immunosuppression. Performed By: #### T ACRO ####[facility] (DEFAULT)[address] [place] [address] TACROLIMUS LEVEL, TROUGH (UT E DRUG LEVEL)Ordered By: Roxanne Louie on 08-29-2023 Interpretation and review of laboratory results Normal [facility] Tacrolimus (Bld) [Mass/Vol] 8.7 ng/mL [facility] URINALYSIS REFLEX TO CULTURE PERFORMABLEon 08-29-2023 Appearance (U) Clear Normal Clear [facility] Comment on above: Order Comment: For i ndwelling catheters, specimen collection is acceptable on catheter day 1 and 2 only. ? Performed By: #### U [id number] ####[facility] (DEFAULT)[address] [place] [address] Bacteria ABSENT Normal ABSENT [facility] Comment on above: Order Comment: For i ndwelling catheters, specimen collection is acceptable on catheter day 1 and 2 only. ? Performed By: #### U [id number] ####[facility] (DEFAULT)[address] [place] [address] Blood Urine Trace Abnormal Negative [facility] Comment on above: Order Comment: For i ndwelling catheters, specimen collection is acceptable on catheter day 1 and 2 only. ? Performed By: #### U [id number] ####[facility] (DEFAULT)[address] [place] [address] Calcium Oxalate Crystals PRESENT Normal [facility] Comment on above: Order Comment: For i ndwelling catheters, specimen collection is acceptable on catheter day 1 and 2 only. ? Performed By: #### U [id number] ####[facility] (DEFAULT)[address] [facility] [address] Color (U) Yellow Normal Yellow [facility] Comment on above: Order Comment: For i ndwelling catheters, specimen collection is acceptable on catheter day 1 and 2 only. ? Performed By: #### U [id number] ####[facility] (DEFAULT)[address] [place] [address] Glucose Ql (U) Negative Normal Negative [facility] Comment on above: Order Comment: For i ndwelling catheters, specimen collection is acceptable on catheter day 1 and 2 only. ? Performed By: #### U [id number] ####[facility] (DEFAULT)[address] [place] [address] Ketones Ql (U) Negative Normal Negative [facility] Comment on above: Order Comment: For i ndwelling catheters, specimen collection is acceptable on catheter day 1 and 2 only. ? Performed By: #### U [id number] ####[facility] (DEFAULT)[address] [place] [address] Leukocyte esterase Test strip Ql (U) Negative Normal Negative [facility] Comment on above: Order Comment: For i ndwelling catheters, specimen collection is acceptable on catheter day 1 and 2 only. ? Performed By: #### U [id number] ####[facility] (DEFAULT)[address] [place] [address] Nitrites Urine Negative Normal Negative [facility] Comment on above: Order Comment: For i ndwelling catheters, specimen collection is acceptable on catheter day 1 and 2 only. ? Performed By: #### U [id number] ####[facility] (DEFAULT)[address] [place] [address] pH (U) 6.0 [pH] Normal 5.0-7.0 [facility] Comment on above: Order Comment: For i ndwelling catheters, specimen collection is acceptable on catheter day 1 and 2 only. ? Performed By: #### U [id number] ####[facility] (DEFAULT)[address] [place] [address] Protein Urine Negative Normal Negative [facility] Comment on above: Order Comment: For i ndwelling catheters, specimen collection is acceptable on catheter day 1 and 2 only. ? Performed By: #### U [id number] ####[facility] (DEFAULT)[address] [place], [place] [address], [place] [address] RBC Urine 3-5 Abnormal 0-2 [facility] Comment on above: Order Comment: For i ndwelling catheters, specimen collection is acceptable on catheter day 1 and 2 only. ? Performed By: #### U [id number] ####[facility] (DEFAULT)[address] [place], [place] [address], [place] [address] Specific [place] Urine 1.015 Normal 1.001-1.035 [facility] Comment on above: Order Comment: For i ndwelling catheters, specimen collection is acceptable on catheter day 1 and 2 only. ? Performed By: #### U [id number] ####[facility] (DEFAULT)[address] [place] [address] Squamous/Epithelial Cells 0-2/hpf Normal 0-2/hpf, 3-5/hpf = 1+ [facility] Comment on above: Order Comment: For i ndwelling catheters, specimen collection is acceptable on catheter day 1 and 2 only. ? Performed By: #### U [id number] ####[facility] (DEFAULT)[address] [place] [address] Urobilinogen Urine 1.0 E.U./dL Normal 0.2 E.U/d L, 1.0 E.U/dL [facility] Comment on above: Order Comment: For i ndwelling catheters, specimen collection is acceptable on catheter day 1 and 2 only. ? Performed By: #### U [id number] ####[facility] (DEFAULT)[address] [facility] [address] WBC Urine 0 - 5 Normal 0 - 5 [facility] Comment on above: Order Comment: For i ndwelling catheters, specimen collection is acceptable on catheter day 1 and 2 only. ? Performed By: #### U [id number] ####[facility] (DEFAULT)[address] [place] [address] URINALYSIS REFLEX TO CULTURE PERFORMABLEOrdered By: Shaji Kelly on 08-29-2023 Appearance (U) Clear Clear [facility] Bacteria LM Ql (Urine sed) ABSENT ABSENT [facility] Calcium Oxalate Crystals PRESENT [facility] Color (U) Yellow Yellow [facility] Epithelial cells.squamous LM Ql (Urine sed) 0-2/hpf 0-2/hpf, 3-5/hpf = 1+ [facility] Glucose Test strip (U) [Mass/Vol] Negative Negative [facility] Interpretation and review of laboratory results Abnormal [facility] Ketones (U) [Mass/Vol] Negative Negative [facility] Leukocyte esterase Test strip Ql (U) Negative Negative [facility] Nitrite Ql (U) Negative Negative [facility] pH (U) 6.0 [pH] 5.0 - 7.0 [facility] Protein (U) [Mass/Vol] Negative Negative [facility] RBC (U) [#/Vol] Trace Abnormal Negative [facility] RBC LM.HPF (Urine sed) [#/Area] 3-5 [facility] Specific gravity (U) [Rel density] 1.015 1.001 - 1.035 [facility] Urobilinogen (U) [Mass/Vol] 1.0 E.U./dL 0.2 E.U/dL, 1.0 E.U/dL [facility] WBC LM.HPF (Urine sed) [#/Area] 0 - 5 [facility] URINE CULTUREon 08-29-2023 Bacteria identified Cx Nom (U) No Growth Normal [facility] Comment on above: Order Comment: For i ndwelling catheters, specimen collection is acceptable on catheter day 1 and 2 only. Sung top vacutainer. Urine must be to the fill line to process (4mls). If minimum volume, send urine in a yellow top vacutainer tube. Performed By: #### U R ####[facility] (DEFAULT)[address] [place] [address] US RENAL TRANSPLANT SCANon 0 08-29-2023 US RENAL TRANSPLANT SCAN Normal [facility] US for transplanted kidney l imitedon 08-29-2023 RADIOLOGY RADIOLOGY [facility] Radiology Study observation (narrative) [facility] US for transplanted kidney l imitedOrdered By: Romana Myers on 08-29-2023 [facility] Work Phone: XR CHEST PORTABLEon 08-29-20 23 XR CHEST PORTABLE Normal [facility] BLOOD CULTUREon 08-28-2023 Bacteria identified Cx Nom (Unsp spec) NO GROWTH DAY 5 OF 5 Normal [facility] Comment on above: Order Comment: [...] then anaerobic Performed By: #### B LDCULT ####[facility] (DEFAULT)[address] [place] [address] Bacteria identified Cx Nom (Unsp spec) NO GROWTH DAY 5 OF 5 Normal [facility] Comment on above: Order Comment: [...] then anaerobic Performed By: #### B LDCULT ####[facility] (DEFAULT)[address] [place] [address] DARYL AURIS SCREEN BY PCRo n 08-28-2023 Daryl auris Screen by PCR Not detected Normal Not Detected [facility] Comment on above: Order Comment: This test was performed using a real-time PCR assay. This test was developed, and its performance characteristics determined by [facility] at [facility]. It has not been cleared or approved by the FDA. The laboratory is regulated under CLIA as qualified to perform high-complexity testing. This test is used for clinical purposes. It should not be regarded as investigational or for research. Performed By: #### C ANDIDA AURIS SCREEN BY PCR ####[facility] (DEFAULT)[address] [place] [address] CBC AND ELECTRONIC DIFFon Abs Baso Auto < Normal 0.00-0.09 [facility] Comment on above: Performed By: #### L [id number] ####[facility] (DEFAULT)[address] [place] [address] Basophils/100 WBC (Bld) 0.6 % Normal [facility] Comment on above: Performed By: #### L [id number] ####[facility] (DEFAULT)[address] [place] [address] DIFF STATUS Electronic Differential Normal [facility] Comment on above: Performed By: #### L [id number] ####[facility] (DEFAULT)[address] [place] [address] Eosinophils (Bld) [#/Vol] 0.10 10*3/uL Normal 0.00-0.48 [facility] Comment on above: Performed By: #### L [id number] ####[facility] (DEFAULT)[address] [place] [address] Eosinophils/100 WBC (Bld) 2.1 % Normal [facility] Comment on above: Performed By: #### L [id number] ####[facility] (DEFAULT)[address] [place] [address] Hematocrit (Bld) [Volume fraction] 37.9 % Low 39.6-48.8 [facility] Comment on above: Performed By: #### L [id number] ####[facility] (DEFAULT)[address] [place] [address] Hemoglobin (Bld) [Mass/Vol] 12.4 g/dL Low 13.4-16.8 [facility] Comment on above: Performed By: #### L [id number] ####[facility] (DEFAULT)[address] [place] [address] Immature Grans % 0.6 % Normal [facility] Comment on above: Performed By: #### L [id number] ####[facility] (DEFAULT)[address] [place] [address], [place] [address] Immature Grans Absolute < Normal <=0.07 [facility] Comment on above: Performed By: #### L [id number] ####[facility] (DEFAULT)[address] [place] [address] Lymphocytes (Bld) [#/Vol] 1.76 10*3/uL Normal 0.83-3.57 [facility] Comment on above: Performed By: #### L [id number] ####[facility] (DEFAULT)[address] [place] [address] Lymphocytes/100 WBC (Bld) 37.1 % Normal [facility] Comment on above: Performed By: #### L [id number] ####[facility] (DEFAULT)[address] [place] [address] MCV (RBC) [Entitic vol] 85.0 fL Normal 79.0-94.5 [facility] Comment on above: Performed By: #### L [id number] ####[facility] (DEFAULT)[address] [place] [address] Mean Cell Hgb 27.8 pg Normal 26.1-33.3 [facility] Comment on above: Performed By: #### L [id number] ####[facility] (DEFAULT)[address] [place] [address] Mean Cell Hgb Conc 32.7 g/dL Normal 31.9-36.5 [facility] Comment on above: Performed By: #### L [id number] ####[facility] (DEFAULT)[address] [place] [address] Monocytes (Bld) [#/Vol] 0.66 10*3/uL Normal 0.24-0.93 [facility] Comment on above: Performed By: #### L [id number] ####[facility] (DEFAULT)[address] [facility] [address] Monocytes/100 WBC (Bld) 13.9 % Normal [facility] Comment on above: Performed By: #### L [id number] ####[facility] (DEFAULT)[address] [place] [address] Nucleated RBC 0.0 /100 WBC Normal <=0.2 [facility] Comment on above: Performed By: #### L [id number] ####[facility] (DEFAULT)[address] [place] [address] Platelet mean volume (Bld) [Entitic vol] 9.3 fL Normal 8.7-12.3 [facility] Comment on above: Performed By: #### L [id number] ####[facility] (DEFAULT)[address] [place] [address] Platelets (Bld) [#/Vol] 262 10*3/uL Normal 146-337 [facility] Comment on above: Performed By: #### L [id number] ####[facility] (DEFAULT)[address] [place] [address] RBC (Bld) [#/Vol] 4.46 10*6/uL Normal 4.38-5.83 [facility] Comment on above: Performed By: #### L [id number] ####[facility] (DEFAULT)[address] [place] [address] RBC Distribution 13.4 % Normal 10.9-14.3 [facility] Comment on above: Performed By: #### L [id number] ####[facility] (DEFAULT)[address] [place] [address] Segs + Bands Auto 45.7 % Normal [facility] Comment on above: Performed By: #### L [id number] ####[facility] (DEFAULT)[address] [place] [address] Segs + Bands,Absolute Auto 2.16 K/uL Normal 1.57-6.19 [facility] Comment on above: Performed By: #### L [id number] ####[facility] (DEFAULT)[address] [place] [address] WBC (Bld) [#/Vol] 4.74 10*3/uL Normal 3.73-10.10 [facility] Comment on above: Performed By: #### L [id number] ####[facility] (DEFAULT)[address] [place] [address] Basophils (Bld) [#/Vol] K/uL 0.00 - 0.09 K/uL [facility] Basophils/100 WBC (Bld) 0.6 % [facility] Differential cell count method Nom (Bld) Electronic Differential [facility] Eosinophils (Bld) [#/Vol] 0.10 10*3/uL 0.00 - 0.48 K/uL [facility] Eosinophils/100 WBC (Bld) 2.1 % [facility] Erythrocyte distribution width (RBC) [Ratio] 13.4 % 10.9 - 14.3 % [facility] Hematocrit (Bld) [Volume fraction] 37.9 % Low 39.6 - 48.8 % [facility] Hemoglobin (Bld) [Mass/Vol] 12.4 g/dL Low 13.4 - 16.8 g/dL [facility] Immature granulocytes (Bld) [#/Vol] K/uL NINF - 0.07 K/uL [facility] Immature granulocytes/100 WBC (Bld) 0.6 % [facility] Interpretation and review of laboratory results Abnormal [facility] Lymphocytes (Bld) [#/Vol] 1.76 10*3/uL 0.83 - 3.57 K/uL [facility] Lymphocytes/100 WBC (Bld) 37.1 % [facility] MCH (RBC) [Entitic mass] 27.8 pg 26.1 - 33.3 pg [facility] MCHC (RBC) [Mass/Vol] 32.7 g/dL 31.9 - 36.5 g/dL [facility] MCV (RBC) [Entitic vol] 85.0 fL 79.0 - 94.5 fL [facility] Monocytes (Bld) [#/Vol] 0.66 10*3/uL 0.24 - 0.93 K/uL [facility] Monocytes/100 WBC (Bld) 13.9 % [facility] Neutrophils (Bld) [#/Vol] 2.16 10*3/uL 1.57 - 6.19 K/uL [facility] Nucleated RBC/100 WBC (Bld) [Ratio] 0.0 % [facility] Platelet mean volume (Bld) [Entitic vol] 9.3 fL 8.7 - 12.3 fL [facility] Platelets (Bld) [#/Vol] 262 10*3/uL 146 - 337 K/uL [facility] RBC (Bld) [#/Vol] 4.46 10*6/uL [facility] Segmented neutrophils/100 WBC (Bld) 45.7 % [facility] WBC (Bld) [#/Vol] 4.74 10*3/uL 3.73 - 10. 10 K/uL [facility] CHEM 6 (LYTES, BUN CREA)on 0 08-28-2023 Anion gap [Moles/Vol] 13 mmol/L Normal 7-17 [facility] Comment on above: Performed By: #### C HM6 ####[facility] (DEFAULT)[address] [facility] [address] Chloride [Moles/Vol] 103 mmol/L Normal 98-108 [facility] Comment on above: Performed By: #### C HM6 ####[facility] (DEFAULT)[address] [facility] [address] CO2 [Moles/Vol] 22 mmol/L Normal 21-31 [facility] Comment on above: Performed By: #### C HM6 ####[facility] (DEFAULT)[address] [place] [address] Creatinine [Mass/Vol] 1.62 mg/dL High 0.70-1.30 [facility] Comment on above: Performed By: #### C HM6 ####[facility] (DEFAULT)[address] [place] [address] GFR/1.73 sq M.predicted among non-blacks MDRD (S/P/Bld) [Vol rate/Area] 51 mL/min/{1.73_m2} Low >=60 [facility] Comment on above: Result Comment: Repo rted eGFR is based on the CKD-EPI 2020 equation using creatinine, age, and sex. Performed By: #### C HM6 ####[facility] (DEFAULT)[address] [place] [address] Potassium [Moles/Vol] 4.3 mmol/L Normal 3.5-5.0 [facility] Comment on above: Performed By: #### C HM6 ####[facility] (DEFAULT)[address] [place] [address] Sodium [Moles/Vol] 134 mmol/L Low 135-145 [facility] Comment on above: Performed By: #### C HM6 ####[facility] (DEFAULT)[address] [place] [address] Urea nitrogen [Mass/Vol] 22 mg/dL Normal 7-25 [facility] Comment on above: Performed By: #### C HM6 ####[facility] (DEFAULT)[address] [place] [address] Urea nitrogen/Creatinine [Mass ratio] 14 mg/mg Normal [facility] Comment on above: Performed By: #### C HM6 ####[facility] (DEFAULT)[address] [place] [address] Anion gap [Moles/Vol] 13 mmol/L 7 - 17 mmol/L [facility] Chloride [Moles/Vol] 103 mmol/L 98 - 10 8 mmol/L [facility] CO2 [Moles/Vol] 22 mmol/L 21 - 31 mmol/L [facility] Creatinine [Mass/Vol] 1.62 mg/dL High 0.70 - 1.30 mg/dL [facility] eGFR, CKD-EPI, Male 52 Low - PINF [facility] Interpretation and review of laboratory results Abnormal [facility] Potassium [Moles/Vol] 4.3 mmol/L 3.5 - 5.0 mmol/L [facility] Sodium [Moles/Vol] 134 mmol/L Low 135 - 145 mmol/L [facility] Urea nitrogen [Mass/Vol] 22 mg/dL 7 - 25 mg/dL [facility] Urea nitrogen/Creatinine [Mass ratio] 14 mg[facility]MMUNOCOMPROMISED RESPIRATOR Y PANELon 08-28-2023 Adenovirus - Pcr Not detected Normal Not Detected [facility] Comment on above: Order [...] assay. Performed By: #### I CRESP ####[facility] (DEFAULT)[address] [place] [address], [place] [address] Bordetella Parapertussis Not detected Normal Not Detected [facility] Comment on above: Order [...] acid assay. Performed By: #### I CRESP ####[facility] (DEFAULT[facility] [place] [address], [place] [address] Bordetella Pertussis Not detected Normal Not Detected [facility] Comment on above: Order [...] assay. Performed By: #### I CRESP ####[facility] (DEFAULT)[address] [facility] [address] Chlamydia Pneumoniae Not detected Normal Not Detected [facility] Comment on above: Order [...] assay. Performed By: #### I CRESP ####[facility] (DEFAULT)[address] [place] [address], [place] [address] Coronavirus 229E Not detected Normal Not Detected [facility] Comment on above: Order [...] assay. Performed By: #### I CRESP ####[facility] (DEFAULT)[address] [place] [address], [place] [address] Coronavirus Hku1 Not detected Normal Not Detected [facility] Comment on above: Order [...] assay. Performed By: #### I CRESP ####[facility] (DEFAULT)[address] [place] [address] Coronavirus Nl63 Not detected Normal Not Detected [facility] Comment on above: Order [...] acid assay. Performed By: #### I CRESP ####[facility] (DEFAULT)[address] [place] [address] Coronavirus Oc43 Not detected Normal Not Detected [facility] Comment on above: Order [...] acid assay. Performed By: #### I CRESP ####[facility] (DEFAULT)[address] [place] [address] Influenza A - Pcr Not detected Normal Not Detected [facility] Comment on above: Order Comment: Viral transport [...] acid assay. Performed By: #### I CRESP ####[facility] (DEFAULT)[address] [place] [address], [place] [address] Influenza B - Pcr Not detected Normal Not Detected [facility] Comment on above: Order Comment: Viral transport [...] acid assay. Performed By: #### I CRESP ####[facility] (DEFAULT)[address] [place] [address], [place] [address] Metapneumovirus - Pcr Not detected Normal Not Detected [facility] Comment on above: Order [...] acid assay. Performed By: #### I CRESP ####[facility] (DEFAULT)[address] [place] [address], [place] [address] Mycoplasma Pneumoniae Not detected Normal Not Detected [facility] Comment on above: Order [...] acid assay. Performed By: #### I CRESP ####[facility] (DEFAULT)[address] [facility] [address] Parainfluenza 1 - Pcr Not detected Normal Not Detected [facility] Comment on above: Order [...] acid assay. Performed By: #### I CRESP ####[facility] (DEFAULT)[address] [facility] [address] Parainfluenza 2 - Pcr Not detected Normal Not Detected [facility] Comment on above: Order [...] acid assay. Performed By: #### I CRESP ####[facility] (DEFAULT)[address] [place] [address] Parainfluenza 3 - Pcr Not detected Normal Not Detected [facility] Comment on above: Order [...] acid assay. Performed By: #### I CRESP ####[facility] (DEFAULT)[address] [place] [address] Parainfluenza 4 - Pcr Not detected Normal Not Detected [facility] Comment on above: Order [...] acid assay. Performed By: #### I CRESP ####[facility] (DEFAULT)[address] [address] Rhinovirus/Enterovir us - PCR Not detected Normal Not Detected [facility] Comment on above: Order [...] acid assay. Performed By: #### I CRESP ####[facility] (DEFAULT)[address] [place] [address] Rsv - Pcr Not detected Normal Not Detected [facility] Comment on above: Order [...] acid assay. Performed By: #### I CRESP ####[facility] (DEFAULT)[address] [place] [address] SARS-CoV-2 (COVID-19) RNA ESTELITA+probe Ql (Unsp spec) Not detected Normal NOT DETECTED [facility] Comment on above: Order [...] assay. Performed By: #### I CRESP ####[facility] (DEFAULT)[address] [place] [address] Portable XR Chest Viewson Radiology Study observation (narrative) [facility] Respiratory virus DNA+RNA NA A+probe Nom (Unsp spec)Ordered By: Dayami Harris on 08-28-2023 Adenovirus DNA ESTELITA+probe Nom (Unsp spec) Not detected Not Detected [facility] B. parapertussis DNA ESTELITA+probe Ql (Unsp spec) Not detected Not Detected [facility] B. pertussis DNA ESTELITA+probe Ql (Unsp spec) Not detected Not Detected [facility] C. pneumoniae DNA ESTELITA+probe Ql (Unsp spec) Not detected Not Detected [facility] FLUAV RNA ESTELITA+probe Ql (Unsp spec) Not detected Not Detected [facility] FLUBV RNA ESTELITA+probe Ql (Unsp spec) Not detected Not Detected [facility] HCoV 229E RNA ESTELITA+non-probe Ql (Nph) Not detected Not Detected [facility] HCoV HKU1 RNA ESTELITA+non-probe Ql (Nph) Not detected Not Detected [facility] HCoV NL63 RNA ESTELITA+non-probe Ql (Nph) Not detected Not Detected [facility] HCoV OC43 RNA ESTELITA+non-probe Ql (Nph) Not detected Not Detected [facility] hMPV A RNA ESTELITA+probe Ql (Unsp spec) Not detected Not Detected [facility] Interpretation and review of laboratory results Normal [facility] M. pneumoniae DNA ESTELITA+probe Ql (Unsp spec) Not detected Not Detected [facility] Parainfluenza virus 1 RNA ESTELITA+probe Ql (Unsp spec) Not detected Not Detected [facility] Parainfluenza virus 2 RNA ESTELITA+probe Ql (Unsp spec) Not detected Not Detected [facility] Parainfluenza virus 3 RNA ESTELITA+probe Ql (Unsp spec) Not detected Not Detected [facility] Parainfluenza virus 4 RNA ESTELITA+probe Ql (Unsp spec) Not detected Not Detected [facility] Rhinovirus+Enterovir us RNA ESTELITA+probe Ql (Unsp spec) Not detected Not Detected [facility] RSV RNA ESTELITA+probe Ql (Unsp spec) Not detected Not Detected [facility] SARS-CoV-2 (COVID-19) RNA ESTELITA+probe Ql (Unsp spec) Not detected NOT DETECTED [facility] ALBUMINon 04-28-2023 Albumin [Mass/Vol] 4.0 g/dL Normal 3.4-5.0 [facility] Comment on above: Performed By: #### C MP #### [facility] [address] [place] [address] Dr. Dwight Waters ALKALINE PHOSPHAon ALP [Catalytic activity/Vol] 106 U/L Normal 46-116 [facility] Comment on above: Performed By: #### F [id number] #### [facility] [address] [place] [address] Dr. Dwight Waters BILIRUBIN CONJUGATED (DIRECT )on 04-28-2023 BILI, CONJUGATED 0.3 mg/dL Critically high 0.0-0.2 [facility] Comment on above: Performed By: #### C MP #### [facility] [address] [place] [address] Dr. Dwight Waters BILIRUBIN TOTALon 04-28-2023 Bilirubin [Mass/Vol] 1.4 mg/dL Critically high 0.2-1.0 [facility] Comment on above: Performed By: #### C MP #### [facility] [address] [place] [address] Dr. Dwight Waters BUNon 04-28-2023 Urea nitrogen [Mass/Vol] 12.0 mg/dL Normal 7.0-18.0 [facility] Comment on above: Performed By: #### U RTPCR #### [facility] [address] [place] [address] Dr. Dwight Waters CALCIUMon 04-28-2023 Calcium [Mass/Vol] 9.3 mg/dL Normal 8.5-10.1 [facility] Comment on above: Performed By: #### U RTPCR #### [facility] [address] [place] [address] Dr. Dwight Waters CBC AUTO DIFFon 04-28-2023 BASO # 0.1 103/ul Normal 0.0-0.1 [facility] Comment on above: Performed By: #### C BC #### [facility] [address] [place] [address] Dr. Dwight Waters Basophils/100 WBC (Bld) 0.9 % Normal 0.2-2.0 [facility] Comment on above: Performed By: #### C BC #### [facility] [address] [place] [address] Dr. Dwight Waters EO # 0.2 103/ul Normal 0.0-0.7 [facility] Comment on above: Performed By: #### C BC #### [facility] [address] [place] [address] Dr. Dwight Waters Eosinophils/100 WBC (Bld) 3.8 % Normal 0.9-7.0 [facility] Comment on above: Performed By: #### C BC #### [facility] [address] [place] [address] Dr. Dwight Waters Erythrocyte distribution width (RBC) [Ratio] 12.5 % Normal 11.0-15.0 [facility] Comment on above: Performed By: #### C BC #### [facility] [address] [place] [address] Dr. Dwight Waters Hematocrit (Bld) [Volume fraction] 49.8 % Normal 42.0-54.0 [facility] Comment on above: Performed By: #### C BC #### [facility] [address] [place] [address] Dr. Dwight Waters Hemoglobin (Bld) [Mass/Vol] 16.4 g/dL Normal 14.0-18.0 [facility] Comment on above: Performed By: #### C BC #### [facility] [address] [place] [address] Dr. Dwight Waters IG # 0.01 10e3/ul Normal 0.00-0.03 [facility] Comment on above: Performed By: #### C BC #### [facility] [address] [place] [address] Dr. Dwight Waters IG % 0.2 % Normal 0.0-0.5 [facility] Comment on above: Performed By: #### C BC #### [facility] [address] [place] [address] Dr. Dwight Waters LYMPH # 2.1 103/ul Normal 1.2-3.8 [facility] Comment on above: Performed By: #### C BC #### [facility] [address] [place] [address] Dr. Dwight Waters Lymphocytes/100 WBC (Bld) 39.1 % Normal 20.5-60.0 [facility] Comment on above: Performed By: #### C BC #### [facility] [address] [place] [address] Dr. Dwight Waters MANUAL DIFF REQ NO Normal [facility] Comment on above: Performed By: #### C BC #### [facility] [address] [place] [address] Dr. Dwight Waters MCH (RBC) [Entitic mass] 28.6 pg Normal 25.9-34.0 [facility] Comment on above: Performed By: #### C BC #### [facility] [address] [place] [address] Dr. Dwight Waters MCHC (RBC) [Mass/Vol] 32.9 g/dL Normal 29.9-35.2 [facility] Comment on above: Performed By: #### C BC #### [facility] [address] [place] [address] Dr. Dwight Waters MCV (RBC) [Entitic vol] 86.9 fL Normal 80.0-94.0 [facility] Comment on above: Performed By: #### C BC #### [facility] [address] [place] [address] Dr. Dwight Waters MONO # 0.6 103/ul Normal 0.3-0.8 [facility] Comment on above: Performed By: #### C BC #### [facility] [address] [place] [address] Dr. Dwight Waters Monocytes/100 WBC (Bld) 10.6 % Normal 1.7-12.0 [facility] Comment on above: Performed By: #### C BC #### [facility] [address] [place] [address] Dr. Dwight Waters NEUT # 2.5 103/ul Normal 1.4-6.5 [facility] Comment on above: Performed By: #### C BC #### [facility] [address] [place] [address] Dr. Dwight Waters Neutrophils/100 WBC (Bld) 45.4 % Normal 43.0-75.0 [facility] Comment on above: Performed By: #### C BC #### [facility] [address] [place] [address] Dr. Dwight Waters Platelet mean volume (Bld) [Entitic vol] 9.3 fL Critically low 9.5-13.5 [facility] Comment on above: Performed By: #### C BC #### [facility] [address] [place] [address] Dr. Dwight Waters PLT 248 103/ul Normal 150-450 [facility] Comment on above: Performed By: #### C BC #### [facility] [address] [place] [address] Dr. Dwight Waters RBC 5.73 106/ul Normal 4.70-6.10 [facility] Comment on above: Performed By: #### C BC #### [facility] [address] [place] [address] Dr. Dwight Waters WBC 5.5 103/ul Normal 4.0-11.0 [facility] Comment on above: Performed By: #### C BC #### [facility] [address] [place] [address] Dr. Dwight Waters CHLORIDEon 04-28-2023 Chloride [Moles/Vol] 107 mmol/L Normal 98-107 [facility] Comment on above: Performed By: #### U RTPCR #### [facility] [address] [place] [address] Dr. Dwight Waters CO2on 04-28-2023 CO2 [Moles/Vol] 28.9 mmol/L Normal 21.0-32.0 [facility] Comment on above: Performed By: #### U RTPCR #### [facility] [address] [place] [address] Dr. Dwight Waters CREATININEon 04-28-2023 Creatinine [Mass/Vol] 1.17 mg/dL Normal 0.70-1.30 [facility] Comment on above: Performed By: #### U RTPCR #### [facility] Laboratory [address] [place] [address] Dr. Dwight Waters EGFR-AF KAZAKH >60 Normal >=60 [facility] Comment on above: Performed By: #### U RTPCR #### [facility] [address] [place] [address] Dr. Dwight Waters EGFR-NON AF KAZAKH >60 Normal >=60 [facility] Comment on above: Performed By: #### U RTPCR #### [facility] [address] [place] [address] Dr. Dwight Waters GGTon 04-28-2023 Gamma glutamyl transferase [Catalytic activity/Vol] 27 U/L Normal 15-85 [facility] Comment on above: Performed By: #### U RTPCR #### [facility] [address] [place] [address] Dr. Dwight Waters GLUCOSE BLOODon 04-28-2023 Glucose [Mass/Vol] 110 mg/dL Critically high 74-106 T [facility] Comment on above: Performed By: #### U RTPCR #### [facility] [address] [place] [address] Dr. Dwight Waters MAGNESIUMon 04-28-2023 Magnesium [Mass/Vol] 1.7 mg/dL Critically low 1.8-2.4 [facility] Comment on above: Performed By: #### U RTPCR #### [facility] [address] [place] [address] Dr. Dwight Waters NAon 04-28-2023 Sodium [Moles/Vol] 144 mmol/L Normal 136-145 [facility] Comment on above: Performed By: #### U RTPCR #### [facility] [address] [place] [address] Dr. Dwight Waters PHOSPHORUSon 04-28-2023 Phosphate [Mass/Vol] 3.2 mg/dL Normal 2.6-4.7 [facility] Comment on above: Performed By: #### U RTPCR #### [facility] [address] [place] [address] Dr. Dwight Waters POTASSIUMon 04-28-2023 Potassium [Moles/Vol] 4.0 mmol/L Normal 3.5-5.1 [facility] Comment on above: Performed By: #### U RTPCR #### [facility] [address] [place] [address] Dr. Dwight Waters SGOTon 04-28-2023 AST [Catalytic activity/Vol] 25 U/L Normal 15-37 [facility] Comment on above: Performed By: #### C MP #### [facility] [address] [place] [address] Dr. Dwight Waters SGPTon 04-28-2023 ALT [Catalytic activity/Vol] 40 U/L Normal 16-63 [facility] Comment on above: Performed By: #### C MP #### [facility] [address] [place] [address] Dr. Dwight Waters URINE T PROTEIN CREAT RATIOo n 04-28-2023 Protein (U) [Mass/Vol] 10.1 mg/dL Normal <=12.0 [facility] Comment on above: Performed By: #### U RTPCR #### [facility] [address] [place] [address] Dr. Dwight Waters UR PROT CREAT RAT 0.14 Normal [facility] Comment on above: Performed By: #### U RTPCR #### [facility] [address] [place] [address] Dr. Dwight Waters URINE CREAT 74.40 mg/dL Normal 20.00-300.00 [facility] Comment on above: Performed By: #### U RTPCR #### [facility] [address] [place] [address] Dr. Dwight Waters Office Visiton 04-13-2023 Follow-up visit [id number] JensenGeorge Tray 1970 M Date Provider Department Center 04/13/2023 MIGUEL PARADA [facility] Family History Problem Relation Age of Onset Coronary artery disease Mother Coronary artery disease Father Family Status - Relation Status Age at Mother Father Level of Service:58367 UT OFFICE/OUTPATIENT ESTABLISHED LOW MDM 20-29 MIN Reason for Visit and Comments: Hypertension [044136] Hyperlipidemia [182] Normal [facility] BK VIRUS PCR QUANTon 023 BKV DNA QUANT PCR PLASMA Negative Normal Negative [facility] Comment on above: Result Comment: No B K DNA detected. . The linear range of the assay is 22 - 100,000,000 IU/mL. Performed By: #### B KVIRUS #### [facility] [address] [place] [address] Dr. Dwight Waters Log10 BKV DNA Plasma Normal [facility] Comment on above: Performed By: #### B KVIRUS #### [facility] [address] [place] [address] Dr. Dwight Waters FK506 (TACROLIMUS) WHOLE BLO ODon 03-04-2023 Tacrolimus (FK506), Blood 5.9 ng/mL Normal 2.0-20.0 [facility] Comment on above: Result Comment: Trou gh (immediately following transplant) 15.0 . Trough (steady state, 2 weeks or more after transplant): 3.0 - 8.0 . Performed by LC-MS/MS technology. Performed By: #### C MP #### [facility] [address] [place] [address] Dr. Dwight Waters ALBUMINon 03-02-2023 Albumin [Mass/Vol] 3.9 g/dL Normal 3.4-5.0 [facility] Comment on above: Performed By: #### U RTPCR #### [facility] [address] [place] [address] Dr. Dwight Waters ALKALINE PHOSPHAon ALP [Catalytic activity/Vol] 105 U/L Normal 46-116 [facility] Comment on above: Performed By: #### U RTPCR #### [facility] [address] [place] [address] Dr. Dwight Waters BILIRUBIN CONJUGATED (DIRECT )on 03-02-2023 BILI, CONJUGATED 0.2 mg/dL Normal 0.0-0.2 [facility] Comment on above: Performed By: #### U RTPCR #### [facility] [address] [place] [address] Dr. Dwight Waters BILIRUBIN TOTALon 03-02-2023 Bilirubin [Mass/Vol] 0.9 mg/dL Normal 0.2-1.0 [facility] Comment on above: Performed By: #### U RTPCR #### [facility] [address] [place] [address] Dr. Dwight Waters CBC AUTO DIFFon 03-02-2023 BASO # 0.1 103/ul Normal 0.0-0.1 [facility] Comment on above: Performed By: #### C BC #### [facility] [address] [place] [address] Dr. Dwight Waters Basophils/100 WBC (Bld) 0.9 % Normal 0.2-2.0 [facility] Comment on above: Performed By: #### C BC #### [facility] [address] [place] [address] Dr. Dwight Waters EO # 0.2 103/ul Normal 0.0-0.7 [facility] Comment on above: Performed By: #### C BC #### [facility] [address] [place] [address] Dr. Dwight Waters Eosinophils/100 WBC (Bld) 3.5 % Normal 0.9-7.0 [facility] Comment on above: Performed By: #### C BC #### [facility] [address] [place] [address] Dr. Dwight Waters Erythrocyte distribution width (RBC) [Ratio] 12.7 % Normal 11.0-15.0 [facility] Comment on above: Performed By: #### C BC #### [facility] [address] [place] [address] Dr. Dwight Waters Hematocrit (Bld) [Volume fraction] 48.2 % Normal 42.0-54.0 [facility] Comment on above: Performed By: #### C BC #### [facility] [address] [place] [address] Dr. Dwight Waters Hemoglobin (Bld) [Mass/Vol] 15.9 g/dL Normal 14.0-18.0 [facility] Comment on above: Performed By: #### C BC #### [facility] [address] [place] [address] Dr. Dwight Waters IG # 0.01 10e3/ul Normal 0.00-0.03 [facility] Comment on above: Performed By: #### C BC #### [facility] [address] [place] [address] Dr. Dwight Waters IG % 0.2 % Normal 0.0-0.5 [facility] Comment on above: Performed By: #### C BC #### [facility] [address] [place] [address] Dr. Dwight Waters LYMPH # 2.1 103/ul Normal 1.2-3.8 [facility] Comment on above: Performed By: #### C BC #### [facility] [address] [place] [address] Dr. Dwight Waters Lymphocytes/100 WBC (Bld) 37.4 % Normal 20.5-60.0 [facility] Comment on above: Performed By: #### C BC #### [facility] [address] [place] [address] Dr. Dwight Waters MANUAL DIFF REQ NO Normal [facility] Comment on above: Performed By: #### C BC #### [facility] [address] [place] [address] Dr. Dwight Waters MCH (RBC) [Entitic mass] 28.3 pg Normal 25.9-34.0 [facility] Comment on above: Performed By: #### C BC #### [facility] [address] [place] [address] Dr. Dwight Waters MCHC (RBC) [Mass/Vol] 33.0 g/dL Normal 29.9-35.2 [facility] Comment on above: Performed By: #### C BC #### [facility] [address] [place] [address] Dr. Dwight Waters MCV (RBC) [Entitic vol] 85.8 fL Normal 80.0-94.0 [facility] Comment on above: Performed By: #### C BC #### [facility] [address] [place] [address] Dr. Dwight Waters MONO # 0.6 103/ul Normal 0.3-0.8 [facility] Comment on above: Performed By: #### C BC #### [facility] [address] [place] [address] Dr. Dwight Waters Monocytes/100 WBC (Bld) 10.2 % Normal 1.7-12.0 [facility] Comment on above: Performed By: #### C BC #### [facility] [address] [place] [address] Dr. Dwight Waters NEUT # 2.7 103/ul Normal 1.4-6.5 [facility] Comment on above: Performed By: #### C BC #### [facility] [address] [place] [address] Dr. Dwight Waters Neutrophils/100 WBC (Bld) 47.8 % Normal 43.0-75.0 [facility] Comment on above: Performed By: #### C BC #### [facility] [address] [place] [address] Dr. Dwight Waters Platelet mean volume (Bld) [Entitic vol] 9.3 fL Critically low 9.5-13.5 [facility] Comment on above: Performed By: #### C BC #### [facility] [address] [place] [address] Dr. Dwight Waters PLT 241 103/ul Normal 150-450 [facility] Comment on above: Performed By: #### C BC #### [facility] [address] [place] [address] Dr. Dwight Waters RBC 5.62 106/ul Normal 4.70-6.10 [facility] Comment on above: Performed By: #### C BC #### [facility] [address] [place] [address] Dr. Dwight Waters WBC 5.7 103/ul Normal 4.0-11.0 [facility] Comment on above: Performed By: #### C BC #### [facility] [address] [place] [address] Dr. Dwight Waters GGTon 03-02-2023 Gamma glutamyl transferase [Catalytic activity/Vol] 25 U/L Normal 15-85 [facility] Comment on above: Performed By: #### U RTPCR #### [facility] [address] [place] [address] Dr. Dwight Waters MAGNESIUMon 03-02-2023 Magnesium [Mass/Vol] 1.6 mg/dL Critically low 1.8-2.4 [facility] Comment on above: Performed By: #### U RTPCR #### [facility] [address] [place] [address] Dr. Dwight Waters PHOSPHORUSon 03-02-2023 Phosphate [Mass/Vol] 3.6 mg/dL Normal 2.6-4.7 [facility] Comment on above: Performed By: #### U RTPCR #### [facility] [address] [place] [address] Dr. Dwihgt Waters PROF CHEM 8 (BAS METB)on Anion gap [Moles/Vol] 9.4 mmol/L Normal [facility] Comment on above: Performed By: #### U RTPCR #### [facility] [address] [address] [address] Dwight Waters Calcium [Mass/Vol] 9.3 mg/dL Normal 8.5-10.1 [facility] Comment on above: Performed By: #### U RTPCR #### [facility] [address] [address] [address] Dwight Waters Chloride [Moles/Vol] 108 mmol/L Critically high 98-107 [facility] Comment on above: Performed By: #### U RTPCR #### [facility] [address] [address] [address] Dwight Waters CO2 [Moles/Vol] 27.2 mmol/L Normal 21.0-32.0 [facility] Comment on above: Performed By: #### U RTPCR #### [facility] [address] [address] [address] Dwight Waters Creatinine [Mass/Vol] 1.12 mg/dL Normal 0.70-1.30 [facility] Comment on above: Performed By: #### U RTPCR #### [facility] [address] [address] [address] Dwight Waters EGFR-AF KAZAKH >60 Normal >=60 [facility] Comment on above: Performed By: #### U RTPCR #### [facility] [address] [address] [address] Dwight Waters EGFR-NON AF KAZAKH >60 Normal >=60 [facility] Comment on above: Performed By: #### U RTPCR #### [facility] [address] [address] [address] Dwight Waters Glucose [Mass/Vol] 113 mg/dL Critically high 74-106 [facility] Comment on above: Performed By: #### U RTPCR #### [facility] [address] [address] [address] Dwight Waters Potassium [Moles/Vol] 3.6 mmol/L Normal 3.5-5.1 [facility] Comment on above: Performed By: #### U RTPCR #### [facility] [address] [place] [address] Dr. Dwight Waters Sodium [Moles/Vol] 141 mmol/L Normal 136-145 [facility] Comment on above: Performed By: #### U RTPCR #### [facility] [address] [place] [address] Dr. Dwight Waters Urea nitrogen [Mass/Vol] 14.0 mg/dL Normal 7.0-18.0 [facility] Comment on above: Performed By: #### U RTPCR #### [facility] [address] [place] [address] Dr. Dwight Waters Urea nitrogen/Creatinine [Mass ratio] 12.5 mg/mg Normal [facility] Comment on above: Performed By: #### U RTPCR #### [facility] [address] [place] [address] Dr. Dwight Waters SGOTon 03-02-2023 AST [Catalytic activity/Vol] 20 U/L Normal 15-37 [facility] Comment on above: Performed By: #### U RTPCR #### [facility] [address] [place] [address] Dr. Dwight Wtaers SGPTon 03-02-2023 ALT [Catalytic activity/Vol] 30 U/L Normal 16-63 [facility] Comment on above: Performed By: #### U RTPCR #### [facility] [address] [place] [address] Dr. Dwight Waters URINE T PROTEIN CREAT RATIOo n 03-02-2023 Protein (U) [Mass/Vol] 10.3 mg/dL Normal <=12.0 [facility] Comment on above: Performed By: #### U RTPCR #### [facility] [address] [place] [address] Dr. Dwight Waters UR PROT CREAT RAT 0.15 Normal [facility] Comment on above: Performed By: #### U RTPCR #### [facility] [address] [place] [address] Dr. Dwight Waters URINE CREAT 68.96 mg/dL Normal 20.00-300.00 [facility] Comment on above: Performed By: #### U RTPCR #### [facility] [address] [place] [address] Dr. Dwight Waters BK VIRUS PCR QUANTon 023 BKV DNA QUANT PCR PLASMA Negative Normal Negative [facility] Comment on above: Result Comment: No B K DNA detected. . The linear range of the assay is 22 - 100,000,000 IU/mL. Performed By: #### C MP #### [facility] [address] [place] [address] Dr. Dwight Waters Log10 BKV DNA Plasma Normal [facility] Comment on above: Performed By: #### C MP #### [facility] [address] [place] [address] Dr. Dwight Waters FK506 (TACROLIMUS) WHOLE BLO ODon 12-31-2022 Tacrolimus (FK506), Blood 5.6 ng/mL Normal 2.0-20.0 [facility] Comment on above: Result Comment: Trou gh (immediately following transplant) 15.0 . Trough (steady state, 2 weeks or more after transplant): 3.0 - 8.0 . Performed by LC-MS/MS technology. Performed By: #### C MP #### [facility] [address] [place] [address] Dr. Dwight Waters ALKALINE PHOSPHAon ALP [Catalytic activity/Vol] 96 U/L Normal 46-116 [facility] Comment on above: Performed By: #### C BC #### [facility] [address] [place] [address] Dr. Dwight Waters BILIRUBIN CONJUGATED (DIRECT )on 12-29-2022 BILI, CONJUGATED 0.3 mg/dL Critically high 0.0-0.2 [facility] Comment on above: Performed By: #### C BC #### [facility] [address] [place] [address] Dr. Dwight Waters BILIRUBIN TOTALon 12-29-2022 Bilirubin [Mass/Vol] 1.1 mg/dL Critically high 0.2-1.0 [facility] Comment on above: Performed By: #### C BC #### [facility] [address] [address] [address] Dwight Waters CBC AUTO DIFFon 12-29-2022 BASO # 0.1 103/ul Normal 0.0-0.1 [facility] Comment on above: Performed By: #### C MP #### [facility] [address] [place] [address] Dr. Dwight Waters Basophils/100 WBC (Bld) 0.8 % Normal 0.2-2.0 [facility] Comment on above: Performed By: #### C MP #### [facility] [address] [place] [address] Dr. Dwight Waters EO # 0.2 103/ul Normal 0.0-0.7 [facility] Comment on above: Performed By: #### C MP #### [facility] [address] [place] [address] Dr. Dwight Waters Eosinophils/100 WBC (Bld) 3.0 % Normal 0.9-7.0 [facility] Comment on above: Performed By: #### C MP #### [facility] [address] [place] [address] Dr. Dwight Waters Erythrocyte distribution width (RBC) [Ratio] 12.9 % Normal 11.0-15.0 [facility] Comment on above: Performed By: #### C MP #### [facility] [address] [place] [address] Dr. Dwight Waters Hematocrit (Bld) [Volume fraction] 46.9 % Normal 42.0-54.0 [facility] Comment on above: Performed By: #### C MP #### [facility] [address] [place] [address] Dr. Dwight Waters Hemoglobin (Bld) [Mass/Vol] 16.1 g/dL Normal 14.0-18.0 [facility] Comment on above: Performed By: #### C MP #### [facility] [address] [place] [address] Dr. Dwight Waters IG # 0.01 10e3/ul Normal 0.00-0.03 [facility] Comment on above: Performed By: #### C MP #### [facility] [address] [place] [address] Dr. Dwight Waters IG % 0.2 % Normal 0.0-0.5 [facility] Comment on above: Performed By: #### C MP #### [facility] [address] [place] [address] Dr. Dwight Waters LYMPH # 1.8 103/ul Normal 1.2-3.8 [facility] Comment on above: Performed By: #### C MP #### [facility] [address] [place] [address] Dr. Dwight Waters Lymphocytes/100 WBC (Bld) 27.9 % Normal 20.5-60.0 [facility] Comment on above: Performed By: #### C MP #### [facility] [address] [place] [address] Dr. Dwight Waters MANUAL DIFF REQ NO Normal [facility] Comment on above: Performed By: #### C MP #### [facility] [address] [place] [address] Dr. Dwight Waters MCH (RBC) [Entitic mass] 28.5 pg Normal 25.9-34.0 [facility] Comment on above: Performed By: #### C MP #### [facility] [address] [place] [address] Dr. Dwight Waters MCHC (RBC) [Mass/Vol] 34.3 g/dL Normal 29.9-35.2 [facility] Comment on above: Performed By: #### C MP #### [facility] [address] [place] [address] Dr. Dwight Waters MCV (RBC) [Entitic vol] 83.2 fL Normal 80.0-94.0 [facility] Comment on above: Performed By: #### C MP #### [facility] [address] [place] [address] Dr. Dwight Waters MONO # 0.5 103/ul Normal 0.3-0.8 [facility] Comment on above: Performed By: #### C MP #### [facility] [address] [place] [address] Dr. Dwight Waters Monocytes/100 WBC (Bld) 8.1 % Normal 1.7-12.0 [facility] Comment on above: Performed By: #### C MP #### [facility] [address] [place] [address] Dr. Dwight Waters NEUT # 3.8 103/ul Normal 1.4-6.5 [facility] Comment on above: Performed By: #### C MP #### [facility] [address] [place] [address] Dr. Dwight Waters Neutrophils/100 WBC (Bld) 60.0 % Normal 43.0-75.0 [facility] Comment on above: Performed By: #### C MP #### [facility] [address] [place] [address] Dr. Dwight Waters Platelet mean volume (Bld) [Entitic vol] 9.2 fL Critically low 9.5-13.5 [facility] Comment on above: Performed By: #### C MP #### [facility] [address] [place] [address] Dr. Dwight Waters PLT 225 103/ul Normal 150-450 [facility] Comment on above: Performed By: #### C MP #### [facility] [address] [place] [address] Dr. Dwight Waters RBC 5.64 106/ul Normal 4.70-6.10 [facility] Comment on above: Performed By: #### C MP #### [facility] [address] [place] [address] Dr. Dwight Waters WBC 6.3 103/ul Normal 4.0-11.0 [facility] Comment on above: Performed By: #### C MP #### [facility] [address] [place] [address] Dr. Dwight Waters GGTon 12-29-2022 Gamma glutamyl transferase [Catalytic activity/Vol] 24 U/L Normal 15-85 [facility] Comment on above: Performed By: #### C MP #### [facility] [address] [place] [address] Dr. Dwight Waters LIPID PROFILEon 12-29-2022 CHOL-HDL RATIO NORM SEE BELOW Normal [facility] Comment on above: Result Comment: 3.3 - 4.4 LOW RISK 4.4 - 7.1 AVERAGE RISK 7.1 - 11.0 MODERATE RISK >11.0 HIGH RISK Performed By: #### U RTPCR #### [facility] [address] [address] [address] Dwight Waters Cholesterol [Mass/Vol] 87 mg/dL Normal <=200 [facility] Comment on above: Performed By: #### U RTPCR #### [facility] [address] [address] [address] Dwight Waters Cholesterol in HDL [Mass/Vol] 44 mg/dL Normal 40-60 [facility] Comment on above: Performed By: #### U RTPCR #### [facility] [address] [address] [address] Dwight Waters Cholesterol in LDL [Mass/Vol] 33.0 mg/dL Normal [facility] Comment on above: Performed By: #### U RTPCR #### [facility] [address] [address] [address] Dwight Waters Cholesterol.total/Ch olesterol in HDL [Mass ratio] 2.0 {ratio} Normal [facility] Comment on above: Performed By: #### U RTPCR #### [facility] [address] [address] [address] Dwight Waters HDL NORMAL > or = 60 mg/dl - LO W CARDIOVASCULAR RISK <40 mg/dl - HIGH CARDIOVASCULAR RISK Normal [facility] Comment on above: Performed By: #### U RTPCR #### [facility] [address] [address] [address] Dwight Waters LDL CALC NORMAL SEE BELOW Normal [facility] Comment on above: Result Comment: <100 mg/dl OPTIMAL 100 - 129 mg/dl NEAR OR ABOVE OPTIMAL 130 - 159 mg/dl BORDERLINE HIGH 160 - 189 mg/dl HIGH >190 mg/dl VERY HIGH Performed By: #### U RTPCR #### [facility] [address] [address] [address] Dwight Waters Triglyceride [Mass/Vol] 50 mg/dL Normal <=150 [facility] Comment on above: Performed By: #### U RTPCR #### [facility] [address] [place] [address] Dr. Dwight Waters VLDL CALC 10.0 mg/dL Normal [facility] Comment on above: Performed By: #### U RTPCR #### [facility] [address] [place] [address] Dr. Dwight Waters MAGNESIUMon 12-29-2022 Magnesium [Mass/Vol] 1.6 mg/dL Critically low 1.8-2.4 [facility] Comment on above: Performed By: #### C BC #### [facility] [address] [place] [address] Dr. Dwight Waters RENAL FUNCTION PANELon 12-29 Albumin [Mass/Vol] 3.9 g/dL Normal 3.4-5.0 [facility] Comment on above: Performed By: #### C BC #### [facility] [address] [place] [address] Dr. Dwight Waters Calcium [Mass/Vol] 9.2 mg/dL Normal 8.5-10.1 [facility] Comment on above: Performed By: #### C BC #### [facility] [address] [place] [address] Dr. Dwight Waters Chloride [Moles/Vol] 109 mmol/L Critically high 98-107 [facility] Comment on above: Performed By: #### C BC #### [facility] [address] [place] [address] Dr. Dwight Waters CO2 [Moles/Vol] 27.0 mmol/L Normal 21.0-32.0 [facility] Comment on above: Performed By: #### C BC #### [facility] [address] [place] [address] Dr. Dwight Waters Creatinine [Mass/Vol] 1.02 mg/dL Normal 0.70-1.30 [facility] Comment on above: Performed By: #### C BC #### [facility] [address] [place] [address] Dr. Dwight Waters EGFR-AF KAZAKH >60 Normal >=60 [facility] Comment on above: Performed By: #### C BC #### [facility] [address] [place] [address] Dr. Dwight Waters EGFR-NON AF KAZAKH >60 Normal >=60 [facility] Comment on above: Performed By: #### C BC #### [facility] [address] [address] [address] Dwight Waters Glucose [Mass/Vol] 117 mg/dL Critically high 74-106 [facility] Comment on above: Performed By: #### C BC #### [facility] [address] [place] [address] Dr. Dwight Waters Phosphate [Mass/Vol] 3.2 mg/dL Normal 2.6-4.7 [facility] Comment on above: Performed By: #### C BC #### [facility] [facility] [address] [place] [address] Dr. Dwight Waters Potassium [Moles/Vol] 4.1 mmol/L Normal 3.5-5.1 [facility] Comment on above: Performed By: #### C BC #### [facility] [address] [place] [address] Dr. Dwight Waters Sodium [Moles/Vol] 144 mmol/L Normal 136-145 [facility] Comment on above: Performed By: #### C BC #### [facility] [address] [place] [address] Dr. Dwight Waters Urea nitrogen [Mass/Vol] 13.0 mg/dL Normal 7.0-18.0 [facility] Comment on above: Performed By: #### C BC #### [facility] [address] [place] [address] Dr. Dwight Waters SGLashondan 12-29-2022 AST [Catalytic activity/Vol] 21 U/L Normal 15-37 [facility] Comment on above: Performed By: #### C BC #### [facility] [address] [place] [address] Dr. Dwight OLVERAPTon 12-29-2022 ALT [Catalytic activity/Vol] 32 U/L Normal 16-63 [facility] Comment on above: Performed By: #### C BC #### [facility] [address] [place] [address] Dr. Dwight Waters URINE T PROTEIN CREAT RATIOo n 12-29-2022 Protein (U) [Mass/Vol] 14.3 mg/dL Critically high <=12.0 [facility] Comment on above: Performed By: #### U RTPCR #### [facility] [address] [place] [address] Dr. Dwight Waters UR PROT CREAT RAT 0.17 Normal [facility] Comment on above: Performed By: #### U RTPCR #### [facility] [address] [place] [address] Dr. Dwight Waters URINE CREAT 86.58 mg/dL Normal 20.00-300.00 [facility] Comment on above: Performed By: #### U RTPCR #### [facility] [address] [place] [address] Dr. Dwight Waters FK506 (TACROLIMUS) WHOLE BLO ODon 11-06-2022 Tacrolimus (FK506), Blood 4.9 ng/mL Normal 2.0-20.0 [facility] Comment on above: Result Comment: Trou gh (immediately following transplant) 15.0 . Trough (steady state, 2 weeks or more after transplant): 3.0 - 8.0 . Performed by LC-MS/MS technology. Performed By: #### U RTPCR #### [facility] [address] [place] [address] Dr. Dwight Waters ALKALINE PHOSPHAon ALP [Catalytic activity/Vol] 86 U/L Normal 46-116 [facility] Comment on above: Performed By: #### U RTPCR #### [facility] [address] [place] [address] Dr. Dwight Waters BILIRUBIN CONJUGATED (DIRECT )on 11-04-2022 BILI, CONJUGATED 0.2 mg/dL Normal 0.0-0.2 [facility] Comment on above: Performed By: #### U RTPCR #### [facility] [address] [place] [address] Dr. Dwight Waters BILIRUBIN TOTALon 11-04-2022 Bilirubin [Mass/Vol] 0.8 mg/dL Normal 0.2-1.0 [facility] Comment on above: Performed By: #### U RTPCR #### [facility] [address] [place] [address] Dr. Dwight Waters CBC AUTO DIFFon 11-04-2022 BASO # 0.1 103/ul Normal 0.0-0.1 [facility] Comment on above: Performed By: #### U RTPCR #### [facility] [address] [place] [address] Dr. Dwight Waters Basophils/100 WBC (Bld) 0.9 % Normal 0.2-2.0 [facility] Comment on above: Performed By: #### U RTPCR #### [facility] [address] [place] [address] Dr. Dwight Waters EO # 0.2 103/ul Normal 0.0-0.7 [facility] Comment on above: Performed By: #### U RTPCR #### [facility] [address] [place] [address] Dr. Dwight Waters Eosinophils/100 WBC (Bld) 3.7 % Normal 0.9-7.0 [facility] Comment on above: Performed By: #### U RTPCR #### [facility] [address] [place] [address] Dr. Dwight Waters Erythrocyte distribution width (RBC) [Ratio] 12.9 % Normal 11.0-15.0 [facility] Comment on above: Performed By: #### U RTPCR #### [facility] [address] [place] [address] Dr. Dwight Waters Hematocrit (Bld) [Volume fraction] 48.3 % Normal 42.0-54.0 [facility] Comment on above: Performed By: #### U RTPCR #### [facility] [address] [place] [address] Dr. Dwight Waters Hemoglobin (Bld) [Mass/Vol] 15.6 g/dL Normal 14.0-18.0 [facility] Comment on above: Performed By: #### U RTPCR #### [facility] [address] [place] [address] Dr. Dwight Waters IG # 0.01 10e3/ul Normal 0.00-0.03 [facility] Comment on above: Performed By: #### U RTPCR #### [facility] [address] [place] [address] Dr. Dwight Waters IG % 0.2 % Normal 0.0-0.5 [facility] Comment on above: Performed By: #### U RTPCR #### [facility] [address] [place] [address] Dr. Dwight Waters LYMPH # 1.9 103/ul Normal 1.2-3.8 [facility] Comment on above: Performed By: #### U RTPCR #### [facility] [address] [place] [address] Dr. Dwight Waters Lymphocytes/100 WBC (Bld) 33.0 % Normal 20.5-60.0 [facility] Comment on above: Performed By: #### U RTPCR #### [facility] [address] [place] [address] Dr. Dwight Waters MANUAL DIFF REQ NO Normal [facility] Comment on above: Performed By: #### U RTPCR #### [facility] [address] [place] [address] Dr. Dwight Waters MCH (RBC) [Entitic mass] 27.6 pg Normal 25.9-34.0 [facility] Comment on above: Performed By: #### U RTPCR #### [facility] [address] [place] [address] Dr. Dwight Waters MCHC (RBC) [Mass/Vol] 32.3 g/dL Normal 29.9-35.2 [facility] Comment on above: Performed By: #### U RTPCR #### [facility] [address] [place] [address] Dr. Dwight Waters MCV (RBC) [Entitic vol] 85.5 fL Normal 80.0-94.0 [facility] Comment on above: Performed By: #### U RTPCR #### [facility] [address] [address] [address] Dwight Waters MONO # 0.5 103/ul Normal 0.3-0.8 [facility] Comment on above: Performed By: #### U RTPCR #### [facility] [address] [place] [address] Dr. Dwight Waters Monocytes/100 WBC (Bld) 8.8 % Normal 1.7-12.0 [facility] Comment on above: Performed By: #### U RTPCR #### [facility] [address] [place] [address] Dr. Dwight Waters NEUT # 3.1 103/ul Normal 1.4-6.5 [facility] Comment on above: Performed By: #### U RTPCR #### [facility] [address] [place] [address] Dr. Dwight Waters Neutrophils/100 WBC (Bld) 53.4 % Normal 43.0-75.0 [facility] Comment on above: Performed By: #### U RTPCR #### [facility] [address] [place] [address] Dr. Dwight Waters Platelet mean volume (Bld) [Entitic vol] 9.2 fL Critically low 9.5-13.5 [facility] Comment on above: Performed By: #### U RTPCR #### [facility] [address] [place] [address] Dr. Dwight Waters PLT 255 103/ul Normal 150-450 [facility] Comment on above: Performed By: #### U RTPCR #### [facility] [address] [place] [address] Dr. Dwight Waters RBC 5.65 106/ul Normal 4.70-6.10 [facility] Comment on above: Performed By: #### U RTPCR #### [facility] [address] [place] [address] Dr. Dwight Waters WBC 5.7 103/ul Normal 4.0-11.0 [facility] Comment on above: Performed By: #### U RTPCR #### [facility] [address] [place] [address] Dr. Dwight Waters GGTon 11-04-2022 Gamma glutamyl transferase [Catalytic activity/Vol] 22 U/L Normal 15-85 [facility] Comment on above: Performed By: #### U RTPCR #### [facility] [address] [place] [address] Dr. Dwight Waters MAGNESIUMon 11-04-2022 Magnesium [Mass/Vol] 1.8 mg/dL Normal 1.8-2.4 [facility] Comment on above: Performed By: #### U RTPCR #### [facility] [address] [place] [address] Dr. Dwight Waters RENAL FUNCTION PANELon 11-04 Albumin [Mass/Vol] 3.8 g/dL Normal 3.4-5.0 [facility] Comment on above: Performed By: #### U RTPCR #### [facility] [address] [place] [address] Dr. Dwight Waters Calcium [Mass/Vol] 9.3 mg/dL Normal 8.5-10.1 [facility] Comment on above: Performed By: #### U RTPCR #### [facility] [address] [place] [address] Dr. Dwight Waters Chloride [Moles/Vol] 107 mmol/L Normal 98-107 [facility] Comment on above: Performed By: #### U RTPCR #### [facility] [address] [place] [address] Dr. Dwight Waters CO2 [Moles/Vol] 29.2 mmol/L Normal 21.0-32.0 [facility] Comment on above: Performed By: #### U RTPCR #### [facility] [address] [place] [address] Dr. Dwight Waters Creatinine [Mass/Vol] 1.07 mg/dL Normal 0.70-1.30 [facility] Comment on above: Performed By: #### U RTPCR #### [facility] [address] [place] [address] Dr. Dwight Waters EGFR-AF KAZAKH >60 Normal >=60 [facility] Comment on above: Performed By: #### U RTPCR #### [facility] [address] [address] [address] Dwight Waters EGFR-NON AF KAZAKH >60 Normal >=60 [facility] Comment on above: Performed By: #### U RTPCR #### [facility] [address] [address] [address] Dwight Waters Glucose [Mass/Vol] 106 mg/dL Normal 74-106 [facility] Comment on above: Performed By: #### U RTPCR #### [facility] [address] [address] [address] Dwight Waters Phosphate [Mass/Vol] 2.8 mg/dL Normal 2.6-4.7 [facility] Comment on above: Performed By: #### U RTPCR #### [facility] [address] [place] [address] Dr. Dwight Waters Potassium [Moles/Vol] 4.1 mmol/L Normal 3.5-5.1 [facility] Comment on above: Performed By: #### U RTPCR #### [facility] [address] [place] [address] Dr. Dwight Waters Sodium [Moles/Vol] 143 mmol/L Normal 136-145 [facility] Comment on above: Performed By: #### U RTPCR #### [facility] [address] [place] [address] Dr. Dwight Waters Urea nitrogen [Mass/Vol] 12.0 mg/dL Normal 7.0-18.0 [facility] Comment on above: Performed By: #### U RTPCR #### [facility] [address] [place] [address] Dr. Dwight Waters SGOTon 11-04-2022 AST [Catalytic activity/Vol] 19 U/L Normal 15-37 [facility] Comment on above: Performed By: #### U RTPCR #### [facility] [address] [place] [address] Dr. Dwight Waters SGPTon 11-04-2022 ALT [Catalytic activity/Vol] 28 U/L Normal 16-63 [facility] Comment on above: Performed By: #### U RTPCR #### [facility] [address] [place] [address] Dr. Dwight Waters URINE T PROTEIN CREAT RATIOo n 11-04-2022 Protein (U) [Mass/Vol] 10.7 mg/dL Normal <=12.0 [facility] Comment on above: Performed By: #### U RTPCR #### [facility] [address] [place] [address] Dr. Dwight Waters UR PROT CREAT RAT 0.13 Normal [facility] Comment on above: Performed By: #### U RTPCR #### [facility] [address] [place] [address] Dr. Dwight Waters URINE CREAT 84.50 mg/dL Normal 20.00-300.00 [facility] Comment on above: Performed By: #### U RTPCR #### [facility] [address] [place] [address] Dr. Dwight Waters FK506 (TACROLIMUS) WHOLE BLO ODon 09-18-2022 Tacrolimus (FK506), Blood 4.6 ng/mL Normal 2.0-20.0 [facility] Comment on above: Result Comment: Trou gh (immediately following transplant) 15.0 . Trough (steady state, 2 weeks or more after transplant): 3.0 - 8.0 . Performed by LC-MS/MS technology. Performed By: #### U RTPCR #### [facility] [address] [place] [address] Dr. Dwight Waters BK VIRUS PCR QUANTon 022 BKV DNA QUANT PCR PLASMA Negative Normal Negative [facility] Comment on above: Result Comment: No B K DNA detected. . The linear range of the assay is 22 - 100,000,000 IU/mL. Performed By: #### U RTPCR #### [facility] [address] [place] [address] Dr. Dwight Waters Log10 BKV DNA Plasma Normal [facility] Comment on above: Performed By: #### U RTPCR #### [facility] [address] [place] [address] Dr. Dwight Waters ALKALINE PHOSPHAon ALP [Catalytic activity/Vol] 92 U/L Normal 46-116 [facility] Comment on above: Performed By: #### U RTPCR #### [facility] [address] [place] [address] Dr. Dwight Waters BILIRUBIN CONJUGATED (DIRECT )on 09-15-2022 BILI, CONJUGATED 0.3 mg/dL Critically high 0.0-0.2 [facility] Comment on above: Performed By: #### U RTPCR #### [facility] [address] [place] [address] Dr. Dwight Waters BILIRUBIN TOTALon 09-15-2022 Bilirubin [Mass/Vol] 1.1 mg/dL Critically high 0.2-1.0 [facility] Comment on above: Performed By: #### U RTPCR #### [facility] [address] [place] [address] Dr. Dwight Waters CBC AUTO DIFFon 09-15-2022 BASO # 0.1 103/ul Normal 0.0-0.1 [facility] Comment on above: Performed By: #### C BC #### [facility] [address] [place] [address] Dr. Dwight Waters Basophils/100 WBC (Bld) 0.8 % Normal 0.2-2.0 [facility] Comment on above: Performed By: #### C BC #### [facility] [address] [place] [address] Dr. Dwigth Waters EO # 0.2 103/ul Normal 0.0-0.7 [facility] Comment on above: Performed By: #### C BC #### [facility] [address] [place] [address] Dr. Dwight Waters Eosinophils/100 WBC (Bld) 3.5 % Normal 0.9-7.0 [facility] Comment on above: Performed By: #### C BC #### [facility] [address] [place] [address] Dr. Dwight Waters Erythrocyte distribution width (RBC) [Ratio] 13.0 % Normal 11.0-15.0 [facility] Comment on above: Performed By: #### C BC #### [facility] [address] [place] [address] Dr. Dwight Waters Hematocrit (Bld) [Volume fraction] 50.0 % Normal 42.0-54.0 [facility] Comment on above: Performed By: #### C BC #### [facility] [address] [place] [address] Dr. Dwight Waters Hemoglobin (Bld) [Mass/Vol] 16.0 g/dL Normal 14.0-18.0 [facility] Comment on above: Performed By: #### C BC #### [facility] [address] [place] [address] Dr. Dwight Waters IG # 0.02 10e3/ul Normal 0.00-0.03 [facility] Comment on above: Performed By: #### C BC #### [facility] [address] [place] [address] Dr. Dwight Waters IG % 0.3 % Normal 0.0-0.5 [facility] Comment on above: Performed By: #### C BC #### [facility] [address] [place] [address] Dr. Dwight Waters LYMPH # 1.8 103/ul Normal 1.2-3.8 [facility] Comment on above: Performed By: #### C BC #### [facility] [address] [place] [address] Dr. Dwight Waters Lymphocytes/100 WBC (Bld) 26.5 % Normal 20.5-60.0 [facility] Comment on above: Performed By: #### C BC #### [facility] [address] [place] [address] Dr. Dwight Waters MANUAL DIFF REQ NO Normal [facility] Comment on above: Performed By: #### C BC #### [facility] [address] [place] [address] Dr. Dwight Waters MCH (RBC) [Entitic mass] 28.1 pg Normal 25.9-34.0 [facility] Comment on above: Performed By: #### C BC #### [facility] [address] [address] [address] Dwight Waters MCHC (RBC) [Mass/Vol] 32.0 g/dL Normal 29.9-35.2 [facility] Comment on above: Performed By: #### C BC #### [facility] [address] [place] [address] Dr. Dwight Waters MCV (RBC) [Entitic vol] 87.9 fL Normal 80.0-94.0 [facility] Comment on above: Performed By: #### C BC #### [facility] [address] [place] [address] Dr. Dwight Waters MONO # 0.5 103/ul Normal 0.3-0.8 [facility] Comment on above: Performed By: #### C BC #### [facility] [address] [place] [address] Dr. Dwight Waters Monocytes/100 WBC (Bld) 8.1 % Normal 1.7-12.0 [facility] Comment on above: Performed By: #### C BC #### [facility] [address] [place] [address] Dr. Dwight Waters NEUT # 4.0 103/ul Normal 1.4-6.5 [facility] Comment on above: Performed By: #### C BC #### [facility] [address] [place] [address] Dr. Dwight Waters Neutrophils/100 WBC (Bld) 60.8 % Normal 43.0-75.0 [facility] Comment on above: Performed By: #### C BC #### [facility] [address] [place] [address] Dr. Dwight Waters Platelet mean volume (Bld) [Entitic vol] 9.4 fL Critically low 9.5-13.5 [facility] Comment on above: Performed By: #### C BC #### [facility] [address] [place] [address] Dr. Dwight Waters PLT 265 103/ul Normal 150-450 [facility] Comment on above: Performed By: #### C BC #### [facility] [address] [place] [address] Dr. Dwight Waters RBC 5.69 106/ul Normal 4.70-6.10 [facility] Comment on above: Performed By: #### C BC #### [facility] [address] [place] [address] Dr. Dwight Waters WBC 6.6 103/ul Normal 4.0-11.0 [facility] Comment on above: Performed By: #### C BC #### [facility] [address] [place] [address] Dr. Dwight Waters GGTon 09-15-2022 Gamma glutamyl transferase [Catalytic activity/Vol] 23 U/L Normal 15-85 [facility] Comment on above: Performed By: #### U RTPCR #### [facility] [address] [place] [address] Dr. Dwight Waters MAGNESIUMon 09-15-2022 Magnesium [Mass/Vol] 1.8 mg/dL Normal 1.8-2.4 [facility] Comment on above: Performed By: #### U RTPCR #### [facility] [address] [place] [address] Dr. Dwight Waters RENAL FUNCTION PANELon 09-15 Albumin [Mass/Vol] 4.1 g/dL Normal 3.4-5.0 [facility] Comment on above: Performed By: #### C BC #### [facility] [address] [place] [address] Dr. Dwight Waters Calcium [Mass/Vol] 9.3 mg/dL Normal 8.5-10.1 [facility] Comment on above: Performed By: #### C BC #### [facility] [address] [place] [address] Dr. Dwight Waters Chloride [Moles/Vol] 107 mmol/L Normal 98-107 [facility] Comment on above: Performed By: #### C BC #### [facility] [address] [place] [address] Dr. Dwight Waters CO2 [Moles/Vol] 25.6 mmol/L Normal 21.0-32.0 [facility] Comment on above: Performed By: #### C BC #### [facility] [address] [place] [address] Dr. Dwight Waters Creatinine [Mass/Vol] 1.01 mg/dL Normal 0.70-1.30 [facility] Comment on above: Performed By: #### C BC #### [facility] [address] [address] [address] Dwight Waters EGFR-AF KAZAKH >60 Normal >=60 [facility] Comment on above: Performed By: #### C BC #### [facility] [address] [place] [address] Dr. Dwight Waters EGFR-NON AF KAZAKH >60 Normal >=60 [facility] Comment on above: Performed By: #### C BC #### [facility] [address] [place] [address] Dr. Dwight Waters Glucose [Mass/Vol] 119 mg/dL Critically high 74-106 [facility] Comment on above: Performed By: #### C BC #### [facility] [address] [place] [address] Dr. Dwight Waters Phosphate [Mass/Vol] 2.8 mg/dL Normal 2.6-4.7 [facility] Comment on above: Performed By: #### C BC #### [facility] [address] [place] [address] Dr. Dwight Waters Potassium [Moles/Vol] 4.0 mmol/L Normal 3.5-5.1 [facility] Comment on above: Performed By: #### C BC #### [facility] [address] [place] [address] Dr. Dwight Waters Sodium [Moles/Vol] 141 mmol/L Normal 136-145 [facility] Comment on above: Performed By: #### C BC #### [facility] [address] [place] [address] Dr. Dwight Waters Urea nitrogen [Mass/Vol] 15.0 mg/dL Normal 7.0-18.0 [facility] Comment on above: Performed By: #### C BC #### [facility] [address] [place] [address] Dr. Dwight Waters SGOTon 09-15-2022 AST [Catalytic activity/Vol] 18 U/L Normal 15-37 [facility] Comment on above: Performed By: #### U RTPCR #### [facility] [address] [place] [address] Dr. Dwight Waters SGPTon 09-15-2022 ALT [Catalytic activity/Vol] 32 U/L Normal 16-63 [facility] Comment on above: Performed By: #### C BC #### [facility] [address] [place] [address] Dr. Dwight Waters URINE T PROTEIN CREAT RATIOo n 09-15-2022 Protein (U) [Mass/Vol] 14.1 mg/dL Critically high <=12.0 [facility] Comment on above: Performed By: #### U RTPCR #### [facility] [address] [place] [address] Dr. Dwight Waters UR PROT CREAT RAT 0.14 Normal [facility] Comment on above: Performed By: #### U RTPCR #### [facility] [address] [place] [address] Dr. Dwight Waters URINE CREAT 98.89 mg/dL Normal 20.00-300.00 [facility] Comment on above: Performed By: #### U RTPCR #### [facility] [address] [place] [address] Dr. Dwight Waters US CAROTID ART BILon [...] MÓNICA JIMENEZ Date: 2022-08-28 13:20 Normal [facility] FK506 (TACROLIMUS) WHOLE BLO ODon 08-17-2022 Tacrolimus (FK506), Blood 9.9 ng/mL Normal 2.0-20.0 [facility] Comment on above: Result Comment: Trou gh (immediately following transplant) 15.0 . Trough (steady state, 2 weeks or more after transplant): 3.0 - 8.0 . Performed by LC-MS/MS technology. Performed By: #### F [id number] #### [facility] [address] [place] [address] Dr. Dwight Waters BK VIRUS PCR QUANTon 022 BKV DNA QUANT PCR PLASMA Negative Normal Negative [facility] Comment on above: Result Comment: No B K DNA detected. . The linear range of the assay is 22 - 100,000,000 IU/mL. Performed By: #### U RTPCR #### [facility] [address] [place] [address] Dr. Dwight Waters Log10 BKV DNA Plasma Normal [facility] Comment on above: Performed By: #### U RTPCR #### [facility] [address] [place] [address] Dr. Dwight Waters ALBUMINon 08-14-2022 Albumin [Mass/Vol] 4.2 g/dL Normal 3.4-5.0 [facility] Comment on above: Performed By: #### F [id number] #### [facility] [address] [place] [address] Dr. Dwight Waters ALKALINE PHOSPHAon ALP [Catalytic activity/Vol] 92 U/L Normal 46-116 [facility] Comment on above: Performed By: #### C BC #### [facility] [address] [place] [address] Dr. Dwight Waters BILIRUBIN CONJUGATED (DIRECT )on 08-14-2022 BILI, CONJUGATED 0.3 mg/dL Critically high 0.0-0.2 [facility] Comment on above: Performed By: #### F [id number] #### [facility] [address] [place] [address] Dr. Dwight Waters BILIRUBIN TOTALon 08-14-2022 Bilirubin [Mass/Vol] 1.5 mg/dL Critically high 0.2-1.0 [facility] Comment on above: Performed By: #### F [id number] #### [facility] [address] [place] [address] Dr. Dwight Waters BUNon 08-14-2022 Urea nitrogen [Mass/Vol] 11.0 mg/dL Normal 7.0-18.0 [facility] Comment on above: Performed By: #### C BC #### [facility] [address] [place] [address] Dr. Dwight Waters CALCIUMon 08-14-2022 Calcium [Mass/Vol] 9.4 mg/dL Normal 8.5-10.1 [facility] Comment on above: Performed By: #### F [id number] #### [facility] [address] [place] [address] Dr. Dwight Waters CBC AUTO DIFFon 08-14-2022 BASO # 0.0 103/ul Normal 0.0-0.1 [facility] Comment on above: Performed By: #### C MP #### [facility] [address] [place] [address] Dr. Dwight Waters Basophils/100 WBC (Bld) 0.5 % Normal 0.2-2.0 [facility] Comment on above: Performed By: #### C MP #### [facility] [address] [place] [address] Dr. Dwight Waters EO # 0.2 103/ul Normal 0.0-0.7 [facility] Comment on above: Performed By: #### C MP #### [facility] [address] [place] [address] Dr. Dwight Waters Eosinophils/100 WBC (Bld) 2.6 % Normal 0.9-7.0 [facility] Comment on above: Performed By: #### C MP #### [facility] [address] [place] [address] Dr. Dwight Waters Erythrocyte distribution width (RBC) [Ratio] 13.1 % Normal 11.0-15.0 [facility] Comment on above: Performed By: #### C MP #### [facility] [address] [place] [address] Dr. Dwight Waters Hematocrit (Bld) [Volume fraction] 47.0 % Normal 42.0-54.0 [facility] Comment on above: Performed By: #### C MP #### [facility] [address] [place] [address] Dr. Dwight Waters Hemoglobin (Bld) [Mass/Vol] 15.3 g/dL Normal 14.0-18.0 [facility] Comment on above: Performed By: #### C MP #### [facility] [address] [place] [address] Dr. Dwight Waters IG # 0.01 10e3/ul Normal 0.00-0.03 [facility] Comment on above: Performed By: #### C MP #### [facility] [address] [place] [address] Dr. Dwight Waters IG % 0.1 % Normal 0.0-0.5 [facility] Comment on above: Performed By: #### C MP #### [facility] [address] [place] [address] Dr. Dwight Waters LYMPH # 2.3 103/ul Normal 1.2-3.8 [facility] Comment on above: Performed By: #### C MP #### [facility] [address] [place] [address] Dr. Dwight Waters Lymphocytes/100 WBC (Bld) 29.8 % Normal 20.5-60.0 [facility] Comment on above: Performed By: #### C MP #### [facility] [address] [place] [address] Dr. Dwight Waters MANUAL DIFF REQ NO Normal [facility] Comment on above: Performed By: #### C MP #### [facility] [address] [place] [address] Dr. Dwight Waters MCH (RBC) [Entitic mass] 28.2 pg Normal 25.9-34.0 [facility] Comment on above: Performed By: #### C MP #### [facility] [address] [place] [address] Dr. Dwight Waters MCHC (RBC) [Mass/Vol] 32.6 g/dL Normal 29.9-35.2 [facility] Comment on above: Performed By: #### C MP #### [facility] [address] [address] [address] Dwight Waters MCV (RBC) [Entitic vol] 86.7 fL Normal 80.0-94.0 [facility] Comment on above: Performed By: #### C MP #### [facility] [address] [address] [address] Dwight Waters MONO # 0.7 103/ul Normal 0.3-0.8 [facility] Comment on above: Performed By: #### C MP #### [facility] [address] [address] [address] Dwight Waters Monocytes/100 WBC (Bld) 8.5 % Normal 1.7-12.0 [facility] Comment on above: Performed By: #### C MP #### [facility] [address] [place] [address] Dr. Dwight Waters NEUT # 4.5 103/ul Normal 1.4-6.5 [facility] Comment on above: Performed By: #### C MP #### [facility] [address] [place] [address] Dr. Dwight Waters Neutrophils/100 WBC (Bld) 58.5 % Normal 43.0-75.0 [facility] Comment on above: Performed By: #### C MP #### [facility] [address] [place] [address] Dr. Dwight Waters Platelet mean volume (Bld) [Entitic vol] 9.7 fL Normal 9.5-13.5 [facility] Comment on above: Performed By: #### C MP #### [facility] [address] [place] [address] Dr. Dwight Waters PLT 266 103/ul Normal 150-450 [facility] Comment on above: Performed By: #### C MP #### [facility] [address] [place] [address] Dr. Dwight Waters RBC 5.42 106/ul Normal 4.70-6.10 [facility] Comment on above: Performed By: #### C MP #### [facility] [address] [place] [address] Dr. Dwight Waters WBC 7.6 103/ul Normal 4.0-11.0 [facility] Comment on above: Performed By: #### C MP #### [facility] [address] [place] [address] Dr. Dwight Waters CHLORIDEon 08-14-2022 Chloride [Moles/Vol] 104 mmol/L Normal 98-107 [facility] Comment on above: Performed By: #### C BC #### [facility] [address] [place] [address] Dr. Dwight Waters CO2on 08-14-2022 CO2 [Moles/Vol] 27.9 mmol/L Normal 21.0-32.0 [facility] Comment on above: Performed By: #### C BC #### [facility] [address] [place] [address] Dr. Dwight Waters CREATININEon 08-14-2022 Creatinine [Mass/Vol] 1.08 mg/dL Normal 0.70-1.30 [facility] Comment on above: Performed By: #### C BC #### [facility] [address] [place] [address] Dr. Dwight Waters EGFR-AF KAZAKH >60 Normal >=60 [facility] Comment on above: Performed By: #### C BC #### [facility] [address] [place] [address] Dr. Dwight Waters EGFR-NON AF KAZAKH >60 Normal >=60 [facility] Comment on above: Performed By: #### C BC #### [facility] [address] [place] [address] Dr. Dwight Waters GGTon 08-14-2022 Gamma glutamyl transferase [Catalytic activity/Vol] 24 U/L Normal 15-85 [facility] Comment on above: Performed By: #### F [id number] #### [facility] [address] [place] [address] Dr. Dwight Waters GLUCOSE BLOODon 08-14-2022 Glucose [Mass/Vol] 111 mg/dL Critically high 74-106 [facility] Comment on above: Performed By: #### C BC #### [facility] [address] [place] [address] Dr. Dwight Waters MAGNESIUMon 08-14-2022 Magnesium [Mass/Vol] 1.4 mg/dL Critically low 1.8-2.4 [facility] Comment on above: Performed By: #### C BC #### [facility] [address] [place] [address] Dr. Dwight Waters NAon 08-14-2022 Sodium [Moles/Vol] 140 mmol/L Normal 136-145 [facility] Comment on above: Performed By: #### F [id number] #### [facility] [address] [place] [address] Dr. Dwight Waters PHOSPHORUSon 08-14-2022 Phosphate [Mass/Vol] 3.1 mg/dL Normal 2.6-4.7 [facility] Comment on above: Performed By: #### C BC #### [facility] [address] [place] [address] Dr. Dwight Waters POTASSIUMon 08-14-2022 Potassium [Moles/Vol] 3.5 mmol/L Normal 3.5-5.1 [facility] Comment on above: Performed By: #### C BC #### [facility] [address] [place] [address] Dr. Dwight Waters SGOToamanda 08-14-2022 AST [Catalytic activity/Vol] 17 U/L Normal 15-37 [facility] Comment on above: Performed By: #### F [id number] #### [facility] [address] [place] [address] Dr. Dwight Waters SGPTon 08-14-2022 ALT [Catalytic activity/Vol] 22 U/L Normal 16-63 [facility] Comment on above: Performed By: #### F [id number] #### [facility] [address] [place] [address] Dr. Dwight Waters URINE T PROTEIN CREAT RATIOo n 08-14-2022 Protein (U) [Mass/Vol] 10.7 mg/dL Normal <=12.0 [facility] Comment on above: Performed By: #### F [id number] #### [facility] [address] [place] [address] Dr. Dwight Waters UR PROT CREAT RAT 0.10 Normal [facility] Comment on above: Performed By: #### F [id number] #### [facility] [id number] Dwight Waters URINE CREAT 104.28 mg/dL Normal 20.00-300.00 [facility] Comment on above: Performed By: #### F [id number] #### [facility] [id number] Dwight Waters NEPHROSTOMY TUBE REMOVALon 0 [...] Assisting physician present for entire procedure: [facility] FK506 (TACROLIMUS) WHOLE BLO ODon 07-06-2022 Tacrolimus (FK506), Blood 9.5 ng/mL Normal 2.0-20.0 [facility] Comment on above: Result Comment: Trou gh (immediately following transplant) 15.0 . Trough (steady state, 2 weeks or more after transplant): 3.0 - 8.0 . Performed by LC-MS/MS technology. Performed By: #### C MP #### [facility] [address] [place] [address] Dr. Dwight Waters ALBUMINon 07-03-2022 Albumin [Mass/Vol] 3.7 g/dL Normal 3.4-5.0 [facility] Comment on above: Performed By: #### U RTPCR #### [facility] [address] [place] [address] Dr. Dwight Waters ALKALINE PHOSPHAon ALP [Catalytic activity/Vol] 76 U/L Normal 46-116 [facility] Comment on above: Performed By: #### U RTPCR #### [facility] [address] [place] [address] Dr. Dwight Waters BILIRUBIN CONJUGATED (DIRECT )on 07-03-2022 BILI, CONJUGATED 0.3 mg/dL Critically high 0.0-0.2 [facility] Comment on above: Performed By: #### C BC #### [facility] [address] [place] [address] Dr. Dwight Waters BILIRUBIN TOTALon 07-03-2022 Bilirubin [Mass/Vol] 1.4 mg/dL Critically high 0.2-1.0 [facility] Comment on above: Performed By: #### C BC #### [facility] [address] [place] [address] Dr. Dwight Waters BUNon 07-03-2022 Urea nitrogen [Mass/Vol] 15.0 mg/dL Normal 7.0-18.0 [facility] Comment on above: Performed By: #### C BC #### [facility] [address] [place] [address] Dr. Dwight Waters CALCIUMon 07-03-2022 Calcium [Mass/Vol] 9.4 mg/dL Normal 8.5-10.1 [facility] Comment on above: Performed By: #### U RTPCR #### [facility] [address] [address] [address] Dwight Waters CBC AUTO DIFFon 07-03-2022 BASO # 0.0 103/ul Normal 0.0-0.1 [facility] Comment on above: Performed By: #### U RTPCR #### [facility] [address] [address] [address] Dwight Waters Basophils/100 WBC (Bld) 0.6 % Normal 0.2-2.0 [facility] Comment on above: Performed By: #### U RTPCR #### [facility] [address] [place] [address] Dr. Dwight Waters EO # 0.2 103/ul Normal 0.0-0.7 [facility] Comment on above: Performed By: #### U RTPCR #### [facility] [address] [place] [address] Dr. Dwight Waters Eosinophils/100 WBC (Bld) 3.5 % Normal 0.9-7.0 [facility] Comment on above: Performed By: #### U RTPCR #### [facility] [address] [place] [address] Dr. Dwight Waters Erythrocyte distribution width (RBC) [Ratio] 12.9 % Normal 11.0-15.0 [facility] Comment on above: Performed By: #### U RTPCR #### [facility] [address] [place] [address] Dr. Dwight Waters Hematocrit (Bld) [Volume fraction] 44.2 % Normal 42.0-54.0 [facility] Comment on above: Performed By: #### U RTPCR #### [facility] [address] [place] [address] Dr. Dwight Waters Hemoglobin (Bld) [Mass/Vol] 14.6 g/dL Normal 14.0-18.0 [facility] Comment on above: Performed By: #### U RTPCR #### [facility] [address] [place] [address] Dr. Dwight Waters IG # 0.02 10e3/ul Normal 0.00-0.03 [facility] Comment on above: Performed By: #### U RTPCR #### [facility] [address] [place] [address] Dr. Dwight Waters IG % 0.3 % Normal 0.0-0.5 [facility] Comment on above: Performed By: #### U RTPCR #### [facility] [address] [place] [address] Dr. Dwight Waters LYMPH # 2.0 103/ul Normal 1.2-3.8 [facility] Comment on above: Performed By: #### U RTPCR #### [facility] [address] [place] [address] Dr. Dwight Waters Lymphocytes/100 WBC (Bld) 28.4 % Normal 20.5-60.0 [facility] Comment on above: Performed By: #### U RTPCR #### [facility] [address] [place] [address] Dr. Dwight Waters MANUAL DIFF REQ NO Normal [facility] Comment on above: Performed By: #### U RTPCR #### [facility] [address] [place] [address] Dr. Dwight Waters MCH (RBC) [Entitic mass] 28.6 pg Normal 25.9-34.0 [facility] Comment on above: Performed By: #### U RTPCR #### [facility] [address] [place] [address] Dr. Dwight Waters MCHC (RBC) [Mass/Vol] 33.0 g/dL Normal 29.9-35.2 [facility] Comment on above: Performed By: #### U RTPCR #### [facility] [address] [place] [address] Dr. Dwight Waters MCV (RBC) [Entitic vol] 86.7 fL Normal 80.0-94.0 [facility] Comment on above: Performed By: #### U RTPCR #### [facility] [address] [place] [address] Dr. Dwight Waters MONO # 0.6 103/ul Normal 0.3-0.8 [facility] Comment on above: Performed By: #### U RTPCR #### [facility] [address] [address] [address] Dwight Waters Monocytes/100 WBC (Bld) 9.1 % Normal 1.7-12.0 [facility] Comment on above: Performed By: #### U RTPCR #### [facility] [address] [address] [address] Dwight Waters NEUT # 4.0 103/ul Normal 1.4-6.5 [facility] Comment on above: Performed By: #### U RTPCR #### [facility] [address] [address] [address] Dwight Waters Neutrophils/100 WBC (Bld) 58.1 % Normal 43.0-75.0 [facility] Comment on above: Performed By: #### U RTPCR #### [facility] [address] [place] [address] Dr. Dwight Waters Platelet mean volume (Bld) [Entitic vol] 9.5 fL Normal 9.5-13.5 [facility] Comment on above: Performed By: #### U RTPCR #### [facility] [address] [place] [address] Dr. Dwight Waters PLT 292 103/ul Normal 150-450 [facility] Comment on above: Performed By: #### U RTPCR #### [facility] [address] [place] [address] Dr. Dwight Waters RBC 5.10 106/ul Normal 4.70-6.10 [facility] Comment on above: Performed By: #### U RTPCR #### [facility] [address] [address] [address] Dwight Waters WBC 6.9 103/ul Normal 4.0-11.0 [facility] Comment on above: Performed By: #### U RTPCR #### [facility] [address] [place] [address] Dr. Dwight Waters CHLORIDEon 07-03-2022 Chloride [Moles/Vol] 108 mmol/L Critically high 98-107 [facility] Comment on above: Performed By: #### C BC #### [facility] [address] [place] [address] Dr. Dwight Waters CO2on 07-03-2022 CO2 [Moles/Vol] 25.2 mmol/L Normal 21.0-32.0 [facility] Comment on above: Performed By: #### C BC #### [facility] [address] [place] [address] Dr. Dwight Waters CREATININEon 07-03-2022 Creatinine [Mass/Vol] 1.03 mg/dL Normal 0.70-1.30 [facility] Comment on above: Performed By: #### U RTPCR #### [facility] [address] [place] [address] Dr. Dwight Waters EGFR-AF KAZAKH >60 Normal >=60 [facility] Comment on above: Performed By: #### U RTPCR #### [facility] [address] [place] [address] Dr. Dwight Waters EGFR-NON AF KAZAKH >60 Normal >=60 [facility] Comment on above: Performed By: #### U RTPCR #### [facility] [address] [place] [address] Dr. Dwight Waters GGTon 07-03-2022 Gamma glutamyl transferase [Catalytic activity/Vol] 31 U/L Normal 15-85 [facility] Comment on above: Performed By: #### U RTPCR #### [facility] [address] [place] [address] Dr. Dwight Waters GLUCOSE BLOODon 07-03-2022 Glucose [Mass/Vol] 119 mg/dL Critically high 74-106 [facility] Comment on above: Performed By: #### U RTPCR #### [facility] [address] [place] [address] Dr. Dwight Waters MAGNESIUMon 07-03-2022 Magnesium [Mass/Vol] 1.4 mg/dL Critically low 1.8-2.4 [facility] Comment on above: Performed By: #### C BC #### [facility] [address] [place] [address] Dr. Dwight Waters NAon 07-03-2022 Sodium [Moles/Vol] 142 mmol/L Normal 136-145 [facility] Comment on above: Performed By: #### C MP #### [facility] [address] [place] [address] Dr. Dwight Waters PHOSPHORUSon 07-03-2022 Phosphate [Mass/Vol] 3.4 mg/dL Normal 2.6-4.7 [facility] Comment on above: Performed By: #### C BC #### [facility] [address] [place] [address] Dr. Dwight Waters POTASSIUMon 07-03-2022 Potassium [Moles/Vol] 4.1 mmol/L Normal 3.5-5.1 [facility] Comment on above: Performed By: #### C BC #### [facility] [address] [place] [address] Dr. Dwight Waters SGOTon 07-03-2022 AST [Catalytic activity/Vol] 14 U/L Critically low 15-37 [facility] Comment on above: Performed By: #### C BC #### [facility] [address] [place] [address] Dr. Dwight Waters SGPTon 07-03-2022 ALT [Catalytic activity/Vol] 25 U/L Normal 16-63 [facility] Comment on above: Performed By: #### C BC #### [facility] [address] [place] [address] Dr. Dwight Waters US KIDNEYSon 07-03-2022 US KIDNEYS Ultrasound kidneys, bilateral HISTORY: Transplant of kidney , pain in the right lower quadrant COMPARISON: None. TECHNIQUE: Transabdominal ultrasound imaging of both kidneys was performed. FINDINGS: The [place] kidneys are diffusely echogenic and atrophic with cortical thinning. The right kidney measures 8.3 x 3.5 x 4.07 m and the left measures 9.9 x 3.8 x 3.6 cm. No hydronephrosis of the [place] kidneys. There is a renal transplant in [...] stone involving the renal transplant. 2. Atrophic [place] kidneys. 3. Normal bladder. Electronically authenticated by: ARCELIA PIZARRO Date: 2022-07-03 17:22 Normal [facility] CT Abdomen and Pelvis WO con traston 06-27-2022 IMPRESSION: 1. Both [place] kidneys are atrophic with improvement in right-sided [...] Adrenals: Adrenal glands are unremarkable. Kidneys: Both [place] kidneys are atrophic. Interval improvement in right [place] kidney hydronephrosis since May 15, 2022. Status [...] Adrenals: Adrenal glands are unremarkable. Kidneys: Both [place] kidneys are atrophic. Interval improvement in right [place] kidney hydronephrosis since May 15, 2022. Status [...] aggressive osseous lesions. IMPRESSION IMPRESSION: 1. Both [place] kidneys are atrophic with improvement in right-sided hydronephrosis since May 15, 2022. 2. 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 No hydronephrosis. No discrete perinephric collection. 3. Partially imaged postsurgical changes related to prior liver transplant. 4. The bladder is decompressed, limiting evaluation. [facility] Radiology Study observation (narrative) [facility] CT Abdomen and Pelvis WO con trastOrdered By: Gera Lu on 06-27-2022 [facility] Work Phone: CBC AUTO DIFFon 06-18-2022 BASO # 0.0 103/ul Normal 0.0-0.1 [facility] Comment on above: Performed By: #### U RTPCR #### [facility] [address] [place] [address] Dr. Dwight Waters Basophils/100 WBC (Bld) 0.5 % Normal 0.2-2.0 [facility] Comment on above: Performed By: #### U RTPCR #### [facility] [address] [address] [address] Dwight Waters EO # 0.2 103/ul Normal 0.0-0.7 [facility] Comment on above: Performed By: #### U RTPCR #### [facility] [address] [address] [address] Dwight Waters Eosinophils/100 WBC (Bld) 2.3 % Normal 0.9-7.0 [facility] Comment on above: Performed By: #### U RTPCR #### [facility] [address] [address] [address] Dwight Waters Erythrocyte distribution width (RBC) [Ratio] 12.9 % Normal 11.0-15.0 [facility] Comment on above: Performed By: #### U RTPCR #### [facility] [address] [place] [address] Dr. Dwight Waters Hematocrit (Bld) [Volume fraction] 41.2 % Critically low 42.0-54.0 [facility] Comment on above: Performed By: #### U RTPCR #### [facility] [address] [place] [address] Dr. Dwight Waters Hemoglobin (Bld) [Mass/Vol] 13.3 g/dL Critically low 14.0-18.0 [facility] Comment on above: Performed By: #### U RTPCR #### [facility] [address] [place] [address] Dr. Dwight Waters IG # 0.04 10e3/ul Critically high 0.00-0.03 [facility] Comment on above: Performed By: #### U RTPCR #### [facility] [address] [place] [address] Dr. Dwight Waters IG % 0.5 % Normal 0.0-0.5 [facility] Comment on above: Performed By: #### U RTPCR #### [facility] [address] [place] [address] Dr. Dwight Waters LYMPH # 2.0 103/ul Normal 1.2-3.8 [facility] Comment on above: Performed By: #### U RTPCR #### [facility] [address] [place] [address] Dr. Dwight Waters Lymphocytes/100 WBC (Bld) 22.9 % Normal 20.5-60.0 [facility] Comment on above: Performed By: #### U RTPCR #### [facility] [address] [place] [address] Dr. Dwight Waters MANUAL DIFF REQ NO Normal [facility] Comment on above: Performed By: #### U RTPCR #### [facility] [address] [place] [address] Dr. Dwight Waters MCH (RBC) [Entitic mass] 28.7 pg Normal 25.9-34.0 [facility] Comment on above: Performed By: #### U RTPCR #### [facility] [address] [place] [address] Dr. Dwight Waters MCHC (RBC) [Mass/Vol] 32.3 g/dL Normal 29.9-35.2 [facility] Comment on above: Performed By: #### U RTPCR #### [facility] [address] [place] [address] Dr. Dwight Waters MCV (RBC) [Entitic vol] 88.8 fL Normal 80.0-94.0 [facility] Comment on above: Performed By: #### U RTPCR #### [facility] [address] [place] [address] Dr. Dwight Waters MONO # 0.8 103/ul Normal 0.3-0.8 [facility] Comment on above: Performed By: #### U RTPCR #### [facility] [address] [place] [address] Dr. Dwight Waters Monocytes/100 WBC (Bld) 9.7 % Normal 1.7-12.0 [facility] Comment on above: Performed By: #### U RTPCR #### [facility] [address] [place] [address] Dr. Dwight Waters NEUT # 5.6 103/ul Normal 1.4-6.5 [facility] Comment on above: Performed By: #### U RTPCR #### [facility] [address] [place] [address] Dr. Dwight Waters Neutrophils/100 WBC (Bld) 64.1 % Normal 43.0-75.0 [facility] Comment on above: Performed By: #### U RTPCR #### [facility] [address] [place] [address] Dr. Dwight Waters Platelet mean volume (Bld) [Entitic vol] 10.0 fL Normal 9.5-13.5 [facility] Comment on above: Performed By: #### U RTPCR #### [facility] [address] [place] [address] Dr. Dwight Waters PLT 270 103/ul Normal 150-450 [facility] Comment on above: Performed By: #### U RTPCR #### [facility] [address] [place] [address] Dr. Dwight Waters RBC 4.64 106/ul Critically low 4.70-6.10 [facility] Comment on above: Performed By: #### U RTPCR #### [facility] [address] [place] [address] Dr. Dwight Waters WBC 8.7 103/ul Normal 4.0-11.0 [facility] Comment on above: Performed By: #### U RTPCR #### [facility] [address] [place] [address] Dr. Dwight Waters CULTURE URINEon 06-18-2022 CULTURE URINE Culture Observations : NO GROWTH. Normal [facility] Comment on above: Performed By: #### U RTPCR #### [facility] [address] [place] [address] Dr. Dwight Waters Covid-19 PCR ([facility])on 05-31 SARS-CoV-2 (COVID-19) RNA ESTELITA+probe Ql (Unsp spec) Not detected Normal NOT DETECTED [facility] Comment on above: Result Comment: When diagnostic [...] for this test is supported by the [place] of [employer] and Human Service's declaration that [...] used). Performed By: #### C BC #### [facility] [address] [place] [address] Dr. Dwight Waters ER URINE PROFILEon Bilirubin Ql (U) Negative Normal NEGATIVE [facility] Comment on above: Performed By: #### U RTPCR #### [facility] [address] [place] [address] Dr. Dwight Waters Clarity (U) CLEAR Normal CLEAR [facility] Comment on above: Performed By: #### U RTPCR #### [facility] [address] [place] [address] Dr. Dwight Waters Color (U) YELLOW Normal YELLOW [facility] Comment on above: Performed By: #### U RTPCR #### [facility] [address] [place] [address] Dr. Dwight Waters ERUAHD A micrscopic examina tion will be performed if indicated. Normal [facility] Comment on above: Performed By: #### U RTPCR #### [facility] [address] [place] [address] Dr. Dwight Waters Glucose Ql (U) Negative Normal NEGATIVE [facility] Comment on above: Performed By: #### U RTPCR #### [facility] [address] [place] [address] Dr. Dwight Waters Hemoglobin Ql (U) LARGE Abnormal NEGATIVE [facility] Comment on above: Performed By: #### U RTPCR #### [facility] [address] [place] [address] Dr. Dwight Waters Ketones Ql (U) Negative Normal NEGATIVE [facility] Comment on above: Performed By: #### U RTPCR #### [facility] [address] [place] [address] Dr. Dwight Waters LEUKOCYTES TRACE Abnormal NEGATIVE [facility] Comment on above: Performed By: #### U RTPCR #### [facility] [address] [place] [address] Dr. Dwight Waters Nitrite Ql (U) Negative Normal NEGATIVE [facility] Comment on above: Performed By: #### U RTPCR #### [facility] [address] [place] [address] Dr. Dwight Waters pH (U) 6.0 [pH] Normal 5-9 [facility] Comment on above: Performed By: #### U RTPCR #### [facility] [address] [place] [address] Dr. Dwight Waters Protein (U) [Mass/Vol] 30 mg/dL Abnormal NEGATIVE/ TRACE [facility] Comment on above: Performed By: #### U RTPCR #### [facility] [address] [place] [address] Dr. Dwight Waters SPEC GRAVITY >=1.030 Abnormal 1.005-<=1.02 5 [facility] Comment on above: Performed By: #### U RTPCR #### [facility] [address] [place] [address] Dr. Dwight Waters UR MICRO IND INDICATED Normal [facility] Comment on above: Performed By: #### U RTPCR #### [facility] [address] [place] [address] Dr. Dwight Waters Urobilinogen Qn (U) 0.2 {Alyssa'U}/dL Normal 0.2 - 1. 0 [facility] Comment on above: Performed By: #### U RTPCR #### [facility] [address] [place] [address] Dr. Dwight Waters PROF 14(COMP METB)on 022 Albumin [Mass/Vol] 3.7 g/dL Normal 3.4-5.0 [facility] Comment on above: Performed By: #### C MP #### [facility] [address] [place] [address] Dr. Dwight Waters Albumin/Globulin [Mass ratio] 0.9 {ratio} Normal [facility] Comment on above: Performed By: #### C MP #### [facility] [address] [place] [address] Dr. Dwight Waters ALP [Catalytic activity/Vol] 80 U/L Normal 46-116 [facility] Comment on above: Performed By: #### C MP #### [facility] [address] [place] [address] Dr. Dwight Waters ALT [Catalytic activity/Vol] 24 U/L Normal 16-63 [facility] Comment on above: Performed By: #### C MP #### [facility] [address] [place] [address] Dr. Dwight Waters Anion gap [Moles/Vol] 12.9 mmol/L Normal [facility] Comment on above: Performed By: #### C MP #### [facility] [address] [address] [address] Dwight Waters AST [Catalytic activity/Vol] 17 U/L Normal 15-37 [facility] Comment on above: Performed By: #### C MP #### [facility] [address] [address] [address] Dwight Waters Bilirubin [Mass/Vol] 0.8 mg/dL Normal 0.2-1.0 [facility] Comment on above: Performed By: #### C MP #### [facility] [address] [address] [address] Dwight Waters Calcium [Mass/Vol] 9.4 mg/dL Normal 8.5-10.1 [facility] Comment on above: Performed By: #### C MP #### [facility] [address] [address] [address] Dwight Waters Chloride [Moles/Vol] 106 mmol/L Normal 98-107 [facility] Comment on above: Performed By: #### C MP #### [facility] [address] [address] [address] Dwight Waters CO2 [Moles/Vol] 25.3 mmol/L Normal 21.0-32.0 [facility] Comment on above: Performed By: #### C MP #### [facility] [address] [address] [address] Dwight Waters Creatinine [Mass/Vol] 1.29 mg/dL Normal 0.70-1.30 [facility] Comment on above: Performed By: #### C MP #### [facility] [address] [address] [address] Dwight Waters EGFR-AF KAZAKH >60 Normal >=60 [facility] Comment on above: Performed By: #### C MP #### [facility] [address] [address] [address] Dwight Waters EGFR-NON AF KAZAKH 59 mL/min/1.73m2 Critically low >=60 [facility] Comment on above: Performed By: #### C MP #### [facility] [address] [address] [address] Dwight Waters Globulin (S) [Mass/Vol] 4.2 g/dL Normal [facility] Comment on above: Performed By: #### C MP #### [facility] [address] [place] [address] Dr. Dwight Waters Glucose [Mass/Vol] 106 mg/dL Normal 74-106 [facility] Comment on above: Performed By: #### C MP #### [facility] [address] [address] [address] Dwight Waters Potassium [Moles/Vol] 4.2 mmol/L Normal 3.5-5.1 [facility] Comment on above: Performed By: #### C MP #### [facility] [address] [place] [address] Dr. Dwight Waters Protein [Mass/Vol] 7.9 g/dL Normal 6.4-8.2 [facility] Comment on above: Performed By: #### C MP #### [facility] [address] [place] [address] Dr. Dwight Waters Sodium [Moles/Vol] 140 mmol/L Normal 136-145 [facility] Comment on above: Performed By: #### C MP #### [facility] [address] [place] [address] Dr. Dwight Waters Urea nitrogen [Mass/Vol] 22.0 mg/dL Critically high 7.0-18.0 [facility] Comment on above: Performed By: #### C MP #### [facility] [address] [place] [address] Dr. Dwight Waters Urea nitrogen/Creatinine [Mass ratio] 17.1 mg/mg Normal [facility] Comment on above: Performed By: #### C MP #### [facility] [address] [place] [address] Dr. Dwight Waters URINE MICROSCOPIC ONLYon BACTERIA TRACE Abnormal NONE SEEN [facility] Comment on above: Performed By: #### U RTPCR #### [facility] [address] [place] [address] Dr. Dwight Waters Bacteria identified Cx Nom (U) INDICATED Normal [facility] Comment on above: Performed By: #### U RTPCR #### [facility] [address] [place] [address] Dr. Dwight Waters CAST NONE SEEN Normal NONE SEEN [facility] Comment on above: Performed By: #### U RTPCR #### [facility] [address] [place] [address] Dr. Dwight Waters Crystals LM Nom (Urine sed) NONE SEEN Normal NONE SEEN [facility] Comment on above: Performed By: #### U RTPCR #### [facility] [address] [place] [address] Dr. Dwight Waters Epithelial cells LM Ql (Urine sed) NONE SEEN Normal NONE SEEN /RARE [facility] Comment on above: Performed By: #### U RTPCR #### [facility] [address] [place] [address] Dr. Dwight Waters MUCOUS NONE SEEN Normal NONE SEEN [facility] Comment on above: Performed By: #### U RTPCR #### [facility] [address] [place] [address] Dr. Dwight Waters RBC 5-10 Abnormal 0-2 [facility] Comment on above: Performed By: #### U RTPCR #### [facility] [address] [place] [address] Dr. Dwight Waters WBC 10-20 Abnormal NONE SEEN [facility] Comment on above: Performed By: #### U RTPCR #### [facility] [address] [place] [address] Dr. Dwight Waters ALLOSCREEN RECIPIENT (POST T X PRA)on 06-13-2022 AB SPECIFICITY CLASS COMMENT Antibody Specificity testing performed by [employer]. cPRA calculation based on identification of HLA antibody specificities at MFI >2000 and/or presence of CREG antibodies. [facility] Comment on above: Some of the reagents used for testing in the Clinical Histocompatibility Laboratory have yet to be approved by the FDA. Our certification by CLIA to perform high complexity tests allows us to use these reagents in the context of a stringent QC program, and obviates the need for FDA approval.Testing performed by the [facility] Clinical Histocompatibility Laboratory. [facility] number: [id number]. [facility] number: [id number], Director: Carlito Merchant, PhD, D([facility]). ANTIBODY SPECIFICITY INTERPRETATION Detected [facility] CLASS I SPECIFICITIES Not detected [facility] CLASS II SPECIFICITIES Not detected [facility] HLA Ab (S) 0 % 0 [facility] EXTRA MICROon 06-13-2022 [facility] URINE CULTUREOrdered By: Jah Upton on 06-13-2022 Bacteria identified Cx Nom (Unsp spec) Growth [facility] Bacteria identified Cx Nom (Unsp spec) 10,000-50,000 CFU/mL Mixed skin shimon [facility] Comment on above: Multiple bacterial m orphotypes present. Suggest appropriate recollection if clinically indicated. [facility] CBC,PLATELETSon 06-12-2022 Erythrocyte distribution width (RBC) [Ratio] 13.0 % 10.9 - 14.3 % [facility] Hematocrit (Bld) [Volume fraction] 43.2 % 39.6 - 48.8 % [facility] Hemoglobin (Bld) [Mass/Vol] 13.9 g/dL 13.4 - 16.8 g/dL [facility] Interpretation and review of laboratory results Normal [facility] MCH (RBC) [Entitic mass] 28.7 pg 26.1 - 33.3 pg [facility] MCHC (RBC) [Mass/Vol] 32.2 g/dL 31.9 - 36.5 g/dL [facility] MCV (RBC) [Entitic vol] 89.1 fL 79.0 - 94.5 fL [facility] Platelet mean volume (Bld) [Entitic vol] 10.5 fL 8.7 - 12.3 fL [facility] Platelets (Bld) [#/Vol] 269 10*3/uL 146 - 337 K/uL [facility] RBC (Bld) [#/Vol] 4.85 10*6/uL [facility] WBC (Bld) [#/Vol] 7.68 10*3/uL 3.73 - 10. 10 K/uL [facility] CHEM 7 (LYTES,BUN,CREA,GLUC) on 06-12-2022 Anion gap [Moles/Vol] 14 mmol/L 7 - 17 mmol/L [facility] Chloride [Moles/Vol] 106 mmol/L 98 - 10 8 mmol/L [facility] CO2 [Moles/Vol] 25 mmol/L 21 - 31 mmol/L [facility] Creatinine [Mass/Vol] 1.26 mg/dL 0.70 - 1.30 mg/dL [facility] GFR/1.73 sq M.predicted CKD-EPI (S/P/Bld) [Vol rate/Area] 69 >=60 mL/min/1.73m 2 [facility] Comment on above: Reported eGFR is bas ed on the CKD-EPI 2020 equation using creatinine, age, and sex. Glucose [Mass/Vol] 83 mg/dL 70 - 99 mg/dL [facility] Osmolality Calc [Osmolality] 295 [facility] Potassium [Moles/Vol] 3.8 mmol/L 3.5 - 5.0 mmol/L [facility] Sodium [Moles/Vol] 141 mmol/L 135 - 145 mmol/L [facility] Urea nitrogen [Mass/Vol] 18 mg/dL 7 - 25 mg/dL [facility] Urea nitrogen/Creatinine [Mass ratio] 14 mg/mg [facility] GGTon 06-12-2022 Gamma glutamyl transferase [Catalytic activity/Vol] 20 U/L 8 - 64 U/L [facility] HEMOGLOBIN [id number] By: Link [employer] on 06-12-2022 Average glucose Estimated from glycated hemoglobin (Bld) [Mass/Vol] 126 mg/dL [facility] HbA1c (Bld) [Mass fraction] 6.0 % High 4.7 - 5.6 % [facility] Interpretation and review of laboratory results Abnormal [facility] HEPATIC FUNCTION PANELon Albumin [Mass/Vol] 4.3 g/dL 3.5 - 5.0 g/dL [facility] ALP [Catalytic activity/Vol] 78 U/L 32 - 126 U/L [facility] ALT [Catalytic activity/Vol] 12 U/L 10 - 52 U/L [facility] AST [Catalytic activity/Vol] 16 U/L 10 - 39 U/L [facility] Bilirubin [Mass/Vol] 1.0 mg/dL <1.5 [facility] Bilirubin.direct [Mass/Vol] 0.2 mg/dL <0.3 [facility] Protein [Mass/Vol] 7.5 g/dL 6.4 - 8.3 g/dL [facility] No Panel Informationon 06-12 Interpretation and review of laboratory results Normal [facility] PTH INTACTOrdered By: Marli Lizarraga on 06-12-2022 Interpretation and review of laboratory results Abnormal [facility] Parathyrin.intact [Mass/Vol] 79.7 pg/mL High 14.0 - 72.0 pg/mL [facility] URINALYSIS REFLEX TO CULTURE PERFORMABLEon 06-12-2022 Appearance (U) Clear Clear [facility] Bacteria LM Ql (Urine sed) ABSENT ABSENT [facility] Color (U) Yellow Yellow [facility] Epithelial cells.squamous LM Ql (Urine sed) 1/hpf = 1+ 1/hpf = 1+, 2-5/hpf = 2+, 0/hpf = 0+, ABSENT [facility] Glucose Test strip (U) [Mass/Vol] Negative Negative [facility] Interpretation and review of laboratory results Abnormal [facility] Ketones (U) [Mass/Vol] Trace Abnormal Negative [facility] Leukocyte esterase Test strip Ql (U) Small Abnormal Negative [facility] Nitrite Ql (U) Negative Negative [facility] pH (U) 5.5 [pH] 5.0 - 7.0 [facility] Protein (U) [Mass/Vol] 30 mg/dL Abnormal Negative [facility] RBC (U) [#/Vol] Trace Abnormal Negative U [facility] RBC LM.HPF (Urine sed) [#/Area] 0-2 0 - 2 /HPF [facility] Specific gravity (U) [Rel density] 1.026 [facility] Urobilinogen (U) [Mass/Vol] 0.2 E.U./dL 0.2 E.U/dL, 1.0 E.U/[facility] W[facility] LM.HPF (Urine sed) [#/Area] 10-20 Abnormal 0 - 5 /HPF [facility] URINE PROTEIN/CREA RATIO, RA NDOMon 06-12-2022 Creatinine (24H U) [Mass/Vol] 231.68 mg/dL [facility] Protein Unsp time (U) [Mass/Vol] 49 mg/dL [facility] Protein/Creatinine (U) [Mass ratio] 0.211 mg/g [facility] FK506 (TACROLIMUS) WHOLE BLO ODon 06-09-2022 Tacrolimus (FK506), Blood 9.8 ng/mL Normal 2.0-20.0 [facility] Comment on above: Result Comment: Trou gh (immediately following transplant) 15.0 . Trough (steady state, 2 weeks or more after transplant): 3.0 - 8.0 . Performed by LC-MS/MS technology. Performed By: #### U RTPCR #### [facility] [address] [place] [address] Dr. Dwight Waters ALBUMINon 06-06-2022 Albumin [Mass/Vol] 3.8 g/dL Normal 3.4-5.0 [facility] Comment on above: Performed By: #### C MP #### [facility] [address] [place] [address] Dr. Dwight Waters ALKALINE PHOSPHAon ALP [Catalytic activity/Vol] 82 U/L Normal 46-116 [facility] Comment on above: Performed By: #### C MP #### [facility] [address] [place] [address] Dr. Dwight Waters BILIRUBIN CONJUGATED (DIRECT )on 06-06-2022 BILI, CONJUGATED 0.2 mg/dL Normal 0.0-0.2 [facility] Comment on above: Performed By: #### C BC #### [facility] [address] [place] [address] Dr. Dwight Waters BILIRUBIN TOTALon 06-06-2022 Bilirubin [Mass/Vol] 1.0 mg/dL Normal 0.2-1.0 [facility] Comment on above: Performed By: #### C BC #### [facility] [address] [place] [address] Dr. Dwight Waters BUNon 06-06-2022 Urea nitrogen [Mass/Vol] 18.0 mg/dL Normal 7.0-18.0 [facility] Comment on above: Performed By: #### C BC #### [facility] [address] [place] [address] Dr. Dwight Waters CALCIUMon 06-06-2022 Calcium [Mass/Vol] 9.4 mg/dL Normal 8.5-10.1 [facility] Comment on above: Performed By: #### C MP #### [facility] [address] [place] [address] Dr. Dwight Waters CBC AUTO DIFFon 06-06-2022 BASO # 0.1 103/ul Normal 0.0-0.1 [facility] Comment on above: Performed By: #### U RTPCR #### [facility] [address] [place] [address] Dr. Dwight Waters Basophils/100 WBC (Bld) 0.8 % Normal 0.2-2.0 [facility] Comment on above: Performed By: #### U RTPCR #### [facility] [address] [place] [address] Dr. Dwight Waters EO # 0.3 103/ul Normal 0.0-0.7 [facility] Comment on above: Performed By: #### U RTPCR #### [facility] [address] [place] [address] Dr. Dwight Waters Eosinophils/100 WBC (Bld) 3.3 % Normal 0.9-7.0 [facility] Comment on above: Performed By: #### U RTPCR #### [facility] [address] [place] [address] Dr. Dwight Waters Erythrocyte distribution width (RBC) [Ratio] 12.4 % Normal 11.0-15.0 [facility] Comment on above: Performed By: #### U RTPCR #### [facility] [address] [place] [address] Dr. Dwight Waters Hematocrit (Bld) [Volume fraction] 45.1 % Normal 42.0-54.0 [facility] Comment on above: Performed By: #### U RTPCR #### [facility] [address] [place] [address] Dr. Dwight Waters Hemoglobin (Bld) [Mass/Vol] 14.4 g/dL Normal 14.0-18.0 [facility] Comment on above: Performed By: #### U RTPCR #### [facility] [address] [place] [address] Dr. Dwight Waters IG # 0.01 10e3/ul Normal 0.00-0.03 [facility] Comment on above: Performed By: #### U RTPCR #### [facility] [address] [place] [address] Dr. Dwight Waters IG % 0.1 % Normal 0.0-0.5 [facility] Comment on above: Performed By: #### U RTPCR #### [facility] [address] [place] [address] Dr. Dwight Waters LYMPH # 2.2 103/ul Normal 1.2-3.8 [facility] Comment on above: Performed By: #### U RTPCR #### [facility] [address] [place] [address] Dr. Dwight Waters Lymphocytes/100 WBC (Bld) 30.0 % Normal 20.5-60.0 [facility] Comment on above: Performed By: #### U RTPCR #### [facility] [address] [place] [address] Dr. Dwight Waters MANUAL DIFF REQ NO Normal [facility] Comment on above: Performed By: #### U RTPCR #### [facility] [address] [place] [address] Dr. Dwight Waters MCH (RBC) [Entitic mass] 28.2 pg Normal 25.9-34.0 [facility] Comment on above: Performed By: #### U RTPCR #### [facility] [address] [place] [address] Dr. Dwight Waters MCHC (RBC) [Mass/Vol] 31.9 g/dL Normal 29.9-35.2 [facility] Comment on above: Performed By: #### U RTPCR #### [facility] [address] [place] [address] Dr. Dwight Waters MCV (RBC) [Entitic vol] 88.3 fL Normal 80.0-94.0 [facility] Comment on above: Performed By: #### U RTPCR #### [facility] [address] [place] [address] Dr. Dwight Waters MONO # 0.6 103/ul Normal 0.3-0.8 [facility] Comment on above: Performed By: #### U RTPCR #### [facility] [address] [place] [address] Dr. Dwight Waters Monocytes/100 WBC (Bld) 8.2 % Normal 1.7-12.0 [facility] Comment on above: Performed By: #### U RTPCR #### [facility] [address] [place] [address] Dr. Dwight Waters NEUT # 4.3 103/ul Normal 1.4-6.5 [facility] Comment on above: Performed By: #### U RTPCR #### [facility] [address] [place] [address] Dr. Dwight Waters Neutrophils/100 WBC (Bld) 57.6 % Normal 43.0-75.0 [facility] Comment on above: Performed By: #### U RTPCR #### [facility] [address] [place] [address] Dr. Dwight Waters Platelet mean volume (Bld) [Entitic vol] 9.7 fL Normal 9.5-13.5 [facility] Comment on above: Performed By: #### U RTPCR #### [facility] [address] [place] [address] Dr. Dwight Waters PLT 297 103/ul Normal 150-450 [facility] Comment on above: Performed By: #### U RTPCR #### [facility] [address] [place] [address] Dr. Dwight Waters RBC 5.11 106/ul Normal 4.70-6.10 [facility] Comment on above: Performed By: #### U RTPCR #### [facility] [address] [place] [address] Dr. Dwight Waters WBC 7.5 103/ul Normal 4.0-11.0 [facility] Comment on above: Performed By: #### U RTPCR #### [facility] [address] [place] [address] Dr. Dwight Waters CHLORIDEon 06-06-2022 Chloride [Moles/Vol] 107 mmol/L Normal 98-107 [facility] Comment on above: Performed By: #### C BC #### [facility] [address] [place] [address] Dr. Dwight Waters CO2on 06-06-2022 CO2 [Moles/Vol] 27.4 mmol/L Normal 21.0-32.0 [facility] Comment on above: Performed By: #### C BC #### [facility] [address] [place] [address] Dr. Dwight Waters CREATININEon 06-06-2022 Creatinine [Mass/Vol] 1.20 mg/dL Normal 0.70-1.30 [facility] Comment on above: Performed By: #### C BC #### [facility] [address] [place] [address] Dr. Dwight Waters EGFR-AF KAZAKH >60 Normal >=60 [facility] Comment on above: Performed By: #### C BC #### [facility] [address] [place] [address] Dr. Dwight Waters EGFR-NON AF KAZAKH >60 Normal >=60 [facility] Comment on above: Performed By: #### C BC #### [facility] [address] [place] [address] Dr. Dwight Waters GGTon 06-06-2022 Gamma glutamyl transferase [Catalytic activity/Vol] 29 U/L Normal 15-85 [facility] Comment on above: Performed By: #### C BC #### [facility] [address] [place] [address] Dr. Dwight Waters GLUCOSE BLOODon 06-06-2022 Glucose [Mass/Vol] 112 mg/dL Critically high 74-106 [facility] Comment on above: Performed By: #### C BC #### [facility] [address] [place] [address] Dr. Dwight Waters MAGNESIUMon 06-06-2022 Magnesium [Mass/Vol] 1.3 mg/dL Critically low 1.8-2.4 [facility] Comment on above: Performed By: #### C MP #### [facility] [address] [place] [address] Dr. Dwight Waters NAon 06-06-2022 Sodium [Moles/Vol] 141 mmol/L Normal 136-145 [facility] Comment on above: Performed By: #### C MP #### [facility] [address] [place] [address] Dr. Dwight Waters PHOSPHORUSon 06-06-2022 Phosphate [Mass/Vol] 3.1 mg/dL Normal 2.6-4.7 [facility] Comment on above: Performed By: #### C MP #### [facility] [address] [place] [address] Dr. Dwight Waters POTASSIUMon 06-06-2022 Potassium [Moles/Vol] 4.3 mmol/L Normal 3.5-5.1 [facility] Comment on above: Performed By: #### C BC #### [facility] [address] [place] [address] Dr. Dwight Waters SGOTon 06-06-2022 AST [Catalytic activity/Vol] 16 U/L Normal 15-37 [facility] Comment on above: Performed By: #### C BC #### [facility] [address] [place] [place], [place] [address] Dr. [facility] ALT [Catalytic activity/Vol] 50 U/L Normal 16-63 [facility] Comment on above: Performed By: #### C BC #### [facility] [address] [place], [place] [address] Dr. Dwight Waters Bacteria identified Cx Nom ( Bld)on 05-21-2022 Bacteria identified Cx Nom (Unsp spec) NO GROWTH DAY 5 OF 5 [facility] Results may be compr omised due to volume of BACT\ALERT bottle exceeding 10mLs . The optimal blood volume is 8-10 mls per aerobic/anaerobic blood culture bottle. [facility] CALCIUMon 05-20-2022 Calcium [Mass/Vol] 9.1 mg/dL 8.6 - 10. 5 mg/dL [facility] CBC,PLATELETSon 05-20-2022 Erythrocyte distribution width (RBC) [Ratio] 12.5 % 10.9 - 14.3 % [facility] Hematocrit (Bld) [Volume fraction] 37.1 % Low 39.6 - 48.8 % [facility] Hemoglobin (Bld) [Mass/Vol] 12.3 g/dL Low 13.4 - 16.8 g/dL [facility] Interpretation and review of laboratory results Abnormal [facility] MCH (RBC) [Entitic mass] 28.9 pg 26.1 - 33.3 pg [facility] MCHC (RBC) [Mass/Vol] 33.2 g/dL 31.9 - 36.5 g/dL [facility] MCV (RBC) [Entitic vol] 87.3 fL 79.0 - 94.5 fL [facility] Platelet mean volume (Bld) [Entitic vol] 9.9 fL 8.7 - 12.3 fL [facility] Platelets (Bld) [#/Vol] 234 10*3/uL 146 - 337 K/uL [facility] RBC (Bld) [#/Vol] 4.25 10*6/uL Low [facility] WBC (Bld) [#/Vol] 6.31 10*3/uL 3.73 - 10. 10 K/uL [facility] CHEM 7 (LYTES,BUN,CREA,GLUC) on 05-20-2022 Anion gap [Moles/Vol] 15 mmol/L 7 - 17 mmol/L [facility] Chloride [Moles/Vol] 111 mmol/L High 98 - 10 8 mmol/L [facility] CO2 [Moles/Vol] 22 mmol/L 21 - 31 mmol/L [facility] Creatinine [Mass/Vol] 1.10 mg/dL 0.70 - 1.30 mg/dL [facility] GFR/1.73 sq M.predicted CKD-EPI (S/P/Bld) [Vol rate/Area] 81 >=60 mL/min/1.73m 2 [facility] Comment on above: Reported eGFR is bas ed on the CKD-EPI 2020 equation using creatinine, age, and sex. Glucose [Mass/Vol] 92 mg/dL 70 - 99 mg/dL [facility] Interpretation and review of laboratory results Abnormal [facility] Osmolality Calc [Osmolality] 302 [facility] Potassium [Moles/Vol] 4.4 mmol/L 3.5 - 5.0 mmol/L [facility] Sodium [Moles/Vol] 144 mmol/L 135 - 145 mmol/L [facility] Urea nitrogen [Mass/Vol] 18 mg/dL 7 - 25 mg/dL [facility] Urea nitrogen/Creatinine [Mass ratio] 16 mg/mg [facility] MAGNESIUMon 05-20-2022 Interpretation and review of laboratory results Abnormal [facility] Magnesium [Mass/Vol] 1.5 mg/dL Low 1.6 - 2 .6 mg/dL [facility] No Panel Informationon 05-20 Interpretation and review of laboratory results Normal [facility] PHOSPHATE, INORGANICon 05-20 Phosphate [Mass/Vol] 3.3 mg/dL 2.2 - 4 .6 mg/dL [facility] RF Unspecified body region V iews [...] projections of kidneys, ureters, and bladder. FINDINGS: Reprographics Technician images: Reprographics Technician radiographs of the abdomen reveal a nonobstructive [...] Contrast refluxes up the ureter to the [place] right kidney that is grossly normal appearing. [...] projections of kidneys, ureters, and bladder. FINDINGS: Reprographics Technician images: Reprographics Technician radiographs of the abdomen reveal a nonobstructive [...] Contrast refluxes up the ureter to the [place] right kidney that is grossly normal appearing. [...] I have reviewed and approved this report. [facility]narrative) [facility] Unspecified body region V iews during surgeryOrdered By: Lizz Campos on 05-20-2022 [facility] Work Phone: CALCIUMon 05-19-2022 Calcium [Mass/Vol] 9.2 mg/dL 8.6 - 10. 5 mg/dL [facility] Calcium [Mass/Vol] 8.6 mg/dL 8.6 - 10. 5 mg/dL [facility] CBC,PLATELETSon 05-19-2022 Erythrocyte distribution width (RBC) [Ratio] 12.4 % 10.9 - 14.3 % [facility] Hematocrit (Bld) [Volume fraction] 38.0 % Low 39.6 - 48.8 % [facility] Hemoglobin (Bld) [Mass/Vol] 12.0 g/dL Low 13.4 - 16.8 g/dL [facility] Interpretation and review of laboratory results Abnormal [facility] MCH (RBC) [Entitic mass] 28.6 pg 26.1 - 33.3 pg [facility] MCHC (RBC) [Mass/Vol] 31.6 g/dL Low 31.9 - 36.5 g/dL [facility] MCV (RBC) [Entitic vol] 90.5 fL 79.0 - 94.5 fL [facility] Platelet mean volume (Bld) [Entitic vol] 9.7 fL 8.7 - 12.3 fL [facility] Platelets (Bld) [#/Vol] 199 10*3/uL 146 - 337 K/uL [facility] RBC (Bld) [#/Vol] 4.20 10*6/uL Low [facility] WBC (Bld) [#/Vol] 6.81 10*3/uL 3.73 - 10. 10 K/uL [facility] CHEM 7 (LYTES,BUN,CREA,GLUC) on 05-19-2022 Anion gap [Moles/Vol] 13 mmol/L 7 - 17 mmol/L [facility] Chloride [Moles/Vol] 105 mmol/L 98 - 10 8 mmol/L [facility] CO2 [Moles/Vol] 30 mmol/L 21 - 31 mmol/L [facility] Creatinine [Mass/Vol] 1.39 mg/dL High 0.70 - 1.30 mg/dL [facility] GFR/1.73 sq M.predicted CKD-EPI (S/P/Bld) [Vol rate/Area] 61 >=60 mL/min/1.73m 2 [facility] Comment on above: Reported eGFR is bas ed on the CKD-EPI 2021 equation using creatinine, age, and sex. Glucose [Mass/Vol] 121 mg/dL High 70 - 99 mg/dL [facility] Interpretation and review of laboratory results Abnormal [facility] Osmolality Calc [Osmolality] 303 [facility] Potassium [Moles/Vol] 3.8 mmol/L 3.5 - 5.0 mmol/L [facility] Sodium [Moles/Vol] 144 mmol/L 135 - 145 mmol/L [facility] Urea nitrogen [Mass/Vol] 18 mg/dL 7 - 25 mg/dL [facility] Urea nitrogen/Creatinine [Mass ratio] 13 mg/mg [facility] Anion gap [Moles/Vol] 15 mmol/L 7 - 17 mmol/L [facility] Chloride [Moles/Vol] 106 mmol/L 98 - 10 8 mmol/L [facility] CO2 [Moles/Vol] 24 mmol/L 21 - 31 mmol/L [facility] Creatinine [Mass/Vol] 1.46 mg/dL High 0.70 - 1.30 mg/dL [facility] GFR/1.73 sq M.predicted CKD-EPI (S/P/Bld) [Vol rate/Area] 58 Low >=60 mL/min/1.73m 2 [facility] Comment on above: Reported eGFR is bas ed on the CKD-EPI 2021 equation using creatinine, age, and sex. Glucose [Mass/Vol] 103 mg/dL High 70 - 99 mg/dL [facility] Interpretation and review of laboratory results Abnormal [facility] Osmolality Calc [Osmolality] 298 [facility] Potassium [Moles/Vol] 3.9 mmol/L 3.5 - 5.0 mmol/L [facility] Sodium [Moles/Vol] 141 mmol/L 135 - 145 mmol/L [facility] Urea nitrogen [Mass/Vol] 21 mg/dL 7 - 25 mg/dL [facility] Urea nitrogen/Creatinine [Mass ratio] 14 mg/mg [facility] MAGNESIUMon 05-19-2022 Magnesium [Mass/Vol] 2.0 mg/dL 1.6 - 2 .6 mg/dL [facility] Magnesium [Mass/Vol] 1.7 mg/dL 1.6 - 2 .6 mg/dL [facility] No Panel Informationon 05-19 Interpretation and review of laboratory results Normal [facility] Interpretation and review of laboratory results Normal [facility] PHOSPHATE, INORGANICon 05-19 Phosphate [Mass/Vol] 3.0 mg/dL 2.2 - 4 .6 mg/dL [facility] Phosphate [Mass/Vol] 2.7 mg/dL 2.2 - 4 .6 mg/dL [facility] CALCIUMon 05-18-2022 Calcium [Mass/Vol] 9.1 mg/dL 8.6 - 10. 5 mg/dL [facility] CBC,PLATELETSon 05-18-2022 Erythrocyte distribution width (RBC) [Ratio] 12.5 % 10.9 - 14.3 % [facility] Hematocrit (Bld) [Volume fraction] 37.3 % Low 39.6 - 48.8 % [facility] Hemoglobin (Bld) [Mass/Vol] 11.9 g/dL Low 13.4 - 16.8 g/dL [facility] Interpretation and review of laboratory results Abnormal [facility] MCH (RBC) [Entitic mass] 28.9 pg 26.1 - 33.3 pg [facility] MCHC (RBC) [Mass/Vol] 31.9 g/dL 31.9 - 36.5 g/dL [facility] MCV (RBC) [Entitic vol] 90.5 fL 79.0 - 94.5 fL [facility] Platelet mean volume (Bld) [Entitic vol] 10.1 fL 8.7 - 12.3 fL [facility] Platelets (Bld) [#/Vol] 189 10*3/uL 146 - 337 K/uL [facility] RBC (Bld) [#/Vol] 4.12 10*6/uL Low [facility] WBC (Bld) [#/Vol] 10.19 10*3/uL High 3.73 - 10 .10 K/uL [facility] CHEM 7 (LYTES,BUN,CREA,GLUC) on 05-18-2022 Anion gap [Moles/Vol] 13 mmol/L 7 - 17 mmol/L [facility] Chloride [Moles/Vol] 102 mmol/L 98 - 10 8 mmol/L [facility] CO2 [Moles/Vol] 26 mmol/L 21 - 31 mmol/L [facility] Creatinine [Mass/Vol] 1.91 mg/dL High 0.70 - 1.30 mg/dL [facility] GFR/1.73 sq M.predicted CKD-EPI (S/P/Bld) [Vol rate/Area] 42 Low >=60 mL/min/1.73m 2 [facility] Comment on above: Reported eGFR is bas ed on the CKD-EPI 2020 equation using creatinine, age, and sex. Glucose [Mass/Vol] 158 mg/dL High 70 - 99 mg/dL [facility] Osmolality Calc [Osmolality] 297 [facility] Potassium [Moles/Vol] 4.0 mmol/L 3.5 - 5.0 mmol/L [facility] Sodium [Moles/Vol] 137 mmol/L 135 - 145 mmol/L [facility] Urea nitrogen [Mass/Vol] 30 mg/dL High 7 - 25 mg/dL [facility] Urea nitrogen/Creatinine [Mass ratio] 16 mg/mg [facility] CHEM 7 (LYTES,BUN,CREA,GLUC) Ordered By: Tamiko Thapa on 05-18-2022 Anion gap [Moles/Vol] 13 mmol/L 7 - 17 mmol/L [facility] Chloride [Moles/Vol] 104 mmol/L 98 - 10 8 mmol/L [facility] CO2 [Moles/Vol] 26 mmol/L 21 - 31 mmol/L [facility] Creatinine [Mass/Vol] 2.96 mg/dL High 0.70 - 1.30 mg/dL [facility] GFR/1.73 sq M.predicted CKD-EPI (S/P/Bld) [Vol rate/Area] 25 Low >=60 mL/min/1.73m 2 [facility] Comment on above: Reported eGFR is bas ed on the CKD-EPI 2020 equation using creatinine, age, and sex. Glucose [Mass/Vol] 136 mg/dL High 70 - 99 mg/dL [facility] Interpretation and review of laboratory results Abnormal [facility] Osmolality Calc [Osmolality] 304 [facility] Potassium [Moles/Vol] 4.2 mmol/L 3.5 - 5.0 mmol/L [facility] Sodium [Moles/Vol] 139 mmol/L 135 - 145 mmol/L [facility] Urea nitrogen [Mass/Vol] 41 mg/dL High 7 - 25 mg/dL [facility] Urea nitrogen/Creatinine [Mass ratio] 14 mg/mg [facility] MAGNESIUMon 05-18-2022 Magnesium [Mass/Vol] 2.2 mg/dL 1.6 - 2 .6 mg/dL [facility] Interpretation and review of laboratory results Normal [facility] Magnesium [Mass/Vol] 1.7 mg/dL 1.6 - 2 .6 mg/dL [facility] No Panel Informationon 05-18 Interpretation and review of laboratory results Abnormal [facility] Interpretation and review of laboratory results Normal [facility] PHOSPHATE, INORGANICon 05-18 Phosphate [Mass/Vol] 2.0 mg/dL Low 2.2 - 4 .6 mg/dL [facility] Interpretation and review of laboratory results Normal [facility] Phosphate [Mass/Vol] 2.8 mg/dL 2.2 - 4 .6 mg/dL [facility] PT,INR,PTTon 05-18-2022 aPTT Coag (PPP) [Time] 31.0 s [facility] INR Coag (Bld) [Relative time] 1.1 {INR} [facility] Interpretation and review of laboratory results Abnormal [facility] PT Coag (PPP) [Time] 14.4 s High [facility] URINE CULTUREOrdered By: Sylvia Campos on 05-18-2022 Bacteria identified Cx Nom (Unsp spec) No Growth [facility] CBC,PLATELETSon 05-17-2022 Erythrocyte distribution width (RBC) [Ratio] 12.8 % 10.9 - 14.3 % [facility] Hematocrit (Bld) [Volume fraction] 42.8 % 39.6 - 48.8 % [facility] Hemoglobin (Bld) [Mass/Vol] 13.3 g/dL Low 13.4 - 16.8 g/dL [facility] Interpretation and review of laboratory results Abnormal [facility] MCH (RBC) [Entitic mass] 28.9 pg 26.1 - 33.3 pg [facility] MCHC (RBC) [Mass/Vol] 31.1 g/dL Low 31.9 - 36.5 g/dL [facility] MCV (RBC) [Entitic vol] 92.8 fL 79.0 - 94.5 fL [facility] Platelet mean volume (Bld) [Entitic vol] 10.3 fL 8.7 - 12.3 fL [facility] Platelets (Bld) [#/Vol] 188 10*3/uL 146 - 337 K/uL [facility] RBC (Bld) [#/Vol] 4.61 10*6/uL [facility] WBC (Bld) [#/Vol] 16.61 10*3/uL High 3.73 - 10 .10 K/uL [facility] CHEM 7 (LYTES,BUN,CREA,GLUC) Ordered By: Kaylah Mc on 05-17-2022 Anion gap [Moles/Vol] 15 mmol/L 7 - 17 mmol/L [facility] Chloride [Moles/Vol] 103 mmol/L 98 - 10 8 mmol/L [facility] CO2 [Moles/Vol] 23 mmol/L 21 - 31 mmol/L [facility] Creatinine [Mass/Vol] 5.95 mg/dL High 0.70 - 1.30 mg/dL [facility] GFR/1.73 sq M.predicted CKD-EPI (S/P/Bld) [Vol rate/Area] 11 Low >=60 mL/min/1.73m 2 [facility] Comment on above: Reported eGFR is bas ed on the CKD-EPI 2020 equation using creatinine, age, and sex. Glucose [Mass/Vol] 165 mg/dL High 70 - 99 mg/dL [facility] Interpretation and review of laboratory results Abnormal [facility] Osmolality Calc [Osmolality] 305 [facility] Potassium [Moles/Vol] 4.6 mmol/L 3.5 - 5.0 mmol/L [facility] Sodium [Moles/Vol] 136 mmol/L 135 - 145 mmol/L [facility] Urea nitrogen [Mass/Vol] 52 mg/dL High 7 - 25 mg/dL [facility] Urea nitrogen/Creatinine [Mass ratio] 9 mg/mg [facility] CHEM 7 (LYTES,BUN,CREA,GLUC) Ordered By: Kehinde Olsen on 05-17-2022 Anion gap [Moles/Vol] 24 mmol/L High 7 - 17 mmol/L [facility] Chloride [Moles/Vol] 100 mmol/L 98 - 10 8 mmol/L [facility] CO2 [Moles/Vol] 16 mmol/L Low 21 - 31 mmol/L [facility] Creatinine [Mass/Vol] 8.08 mg/dL High 0.70 - 1.30 mg/dL [facility] GFR/1.73 sq M.predicted CKD-EPI (S/P/Bld) [Vol rate/Area] 7 Low >=60 mL/min/1.73m 2 [facility] Comment on above: Reported eGFR is bas ed on the CKD-EPI 2020 equation using creatinine, age, and sex. Glucose [Mass/Vol] 164 mg/dL High 70 - 99 mg/dL [facility] Interpretation and review of laboratory results Abnormal [facility] Osmolality Calc [Osmolality] 305 [facility] Potassium [Moles/Vol] 5.0 mmol/L 3.5 - 5.0 mmol/L [facility] Sodium [Moles/Vol] 135 mmol/L 135 - 145 mmol/L [facility] Urea nitrogen [Mass/Vol] 56 mg/dL High 7 - 25 mg/dL [facility] Urea nitrogen/Creatinine [Mass ratio] 7 mg/mg [facility] LAVENDER TOP TUBEon 05-17-20 [facility] MAGNESIUMon 05-17-2022 Interpretation and review of laboratory results Normal [facility] Magnesium [Mass/Vol] 1.8 mg/dL 1.6 - 2 .6 mg/dL [facility] Interpretation and review of laboratory results Normal [facility] Magnesium [Mass/Vol] 1.6 mg/dL 1.6 - 2 .6 mg/dL [facility] No Panel Informationon 05-17 [facility] PHOSPHATE, INORGANICon 05-17 Interpretation and review of laboratory results Abnormal [facility] Phosphate [Mass/Vol] 4.9 mg/dL High 2.2 - 4 .6 mg/dL [facility] PT,INR,PTTon 05-17-2022 aPTT Coag (PPP) [Time] 33.0 s [facility] INR Coag (Bld) [Relative time] 1.3 {INR} High [facility] Interpretation and review of laboratory results Abnormal [facility] PT Coag (PPP) [Time] 15.7 s High [facility] Portable XR Chest Viewson IMPRESSION: No acute findings. OLOGY EXAM: XR CHEST KIERAN BLE, 05/17/2022 14:39 PM COMPARISON: May 15, 2022 CLINICAL INDICATIONS: hypoxia RELEVANT CLINICAL HISTORY: FINDINGS: (Adequate technique) Implanted Devices: None Thorax: Lungs are clear. No pneumothorax or effusion. Stable cardiomegaly. RADIOLOGY Raheem Sanz, DO - 05/17/2022 EXAM: XR CHEST PORTABLE, 05/17/2022 14:39 PM COMPARISON: May 15, 2022 CLINICAL INDICATIONS: hypoxia RELEVANT CLINICAL HISTORY: FINDINGS: (Adequate technique) Implanted Devices: None Thorax: Lungs are clear. No pneumothorax or effusion. Stable cardiomegaly. IMPRESSION IMPRESSION: No acute findings. [facility] Radiology Study observation (narrative) [facility] Portable XR Chest ViewsOrder ed By: Raheem Sanz on 05-17-2022 [facility] Work Phone: URINALYSISOrdered By: Michael patel Ma on 05-17-2022 Appearance (U) Cloudy Abnormal Clear [facility] Comment on above: Results may be inacc urate due to color interference. Clinical correlation recommended. Bacteria LM Ql (Urine sed) ABSENT ABSENT [facility] Color (U) Red Abnormal Yellow [facility] Comment on above: Results may be inacc urate due to color interference. Clinical correlation recommended. Epithelial cells.squamous LM Ql (Urine sed) ABSENT 1/hpf = 1+, 2-5/hpf = 2+, 0/hpf = 0+, ABSENT [facility] Glucose Test strip (U) [Mass/Vol] Negative Negative [facility] Comment on above: Results may be inacc urate due to color interference. Clinical correlation recommended. Interpretation and review of laboratory results Abnormal [facility] Ketones (U) [Mass/Vol] Trace Abnormal Negative [facility] Comment on above: Results may be inacc urate due to color interference. Clinical correlation recommended. Leukocyte esterase Test strip Ql (U) Large Abnormal Negative [facility] Comment on above: Results may be inacc urate due to color interference. Clinical correlation recommended. Nitrite Ql (U) Negative Negative [facility] Comment on above: Results may be inacc urate due to color interference. Clinical correlation recommended. pH (U) 5.0 [pH] 5.0 - 7.0 [facility] Comment on above: Results may be inacc urate due to color interference. Clinical correlation recommended. Protein (U) [Mass/Vol] mg/dL Abnormal Negative [facility] Comment on above: Results may be inacc urate due to color interference. Clinical correlation recommended. RBC (U) [#/Vol] Large Abnormal Negative [facility] Comment on above: Results may be inacc urate due to color interference. Clinical correlation recommended. RBC LM.HPF (Urine sed) [#/Area] /[HPF] Abnormal 0 - 2 /HPF [facility] Specific gravity (U) [Rel density] 1.016 [facility] Comment on above: Results may be inacc urate due to color interference. Clinical correlation recommended. Urobilinogen (U) [Mass/Vol] 0.2 E.U./dL 0.2 E.U/dL, 1.0 E.U/dL [facility] Comment on above: Results may be inacc urate due to color interference. Clinical correlation recommended. WBC LM.HPF (Urine sed) [#/Area] /[HPF] Abnormal 0 - 5 /HPF [facility] URINE CULTUREOrdered By: Tyler Tiwari on 05-17-2022 Bacteria identified Cx Nom (Unsp spec) No Growth [facility] CBC,PLATELETSon 05-16-2022 Erythrocyte distribution width (RBC) [Ratio] 12.9 % 10.9 - 14.3 % [facility] Hematocrit (Bld) [Volume fraction] 46.5 % 39.6 - 48.8 % [facility] Hemoglobin (Bld) [Mass/Vol] 14.7 g/dL 13.4 - 16.8 g/dL [facility] Interpretation and review of laboratory results Abnormal [facility] MCH (RBC) [Entitic mass] 28.3 pg 26.1 - 33.3 pg [facility] MCHC (RBC) [Mass/Vol] 31.6 g/dL Low 31.9 - 36.5 g/dL [facility] MCV (RBC) [Entitic vol] 89.6 fL 79.0 - 94.5 fL [facility] Platelet mean volume (Bld) [Entitic vol] 10.3 fL 8.7 - 12.3 fL [facility] Platelets (Bld) [#/Vol] 188 10*3/uL 146 - 337 K/uL [facility] RBC (Bld) [#/Vol] 5.19 10*6/uL [facility] WBC (Bld) [#/Vol] 12.55 10*3/uL High 3.73 - 10 .10 K/uL [facility] CHEM 7 (LYTES,BUN,CREA,GLUC) Ordered By: Alma Pena on 05-16-2022 Anion gap [Moles/Vol] 14 mmol/L 7 - 17 mmol/L [facility] Chloride [Moles/Vol] 103 mmol/L 98 - 10 8 mmol/L [facility] CO2 [Moles/Vol] 22 mmol/L 21 - 31 mmol/L [facility] Creatinine [Mass/Vol] 6.09 mg/dL High 0.70 - 1.30 mg/dL [facility] GFR/1.73 sq M.predicted CKD-EPI (S/P/Bld) [Vol rate/Area] 10 Low >=60 mL/min/1.73m 2 [facility] Comment on above: Reported eGFR is bas ed on the CKD-EPI 2020 equation using creatinine, age, and sex. Glucose [Mass/Vol] 134 mg/dL High 70 - 99 mg/dL [facility] Interpretation and review of laboratory results Abnormal [facility] Osmolality Calc [Osmolality] 298 [facility] Potassium [Moles/Vol] 4.9 mmol/L 3.5 - 5.0 mmol/L [facility] Sodium [Moles/Vol] 134 mmol/L Low 135 - 145 mmol/L [facility] Comment on above: Results inconsistent with previous results Urea nitrogen [Mass/Vol] 49 mg/dL High 7 - 25 mg/dL [facility] Urea nitrogen/Creatinine [Mass ratio] 8 mg/mg [facility] CHEM 7 (LYTES,BUN,CREA,GLUC) on 05-16-2022 Anion gap [Moles/Vol] 17 mmol/L 7 - 17 mmol/L [facility] Chloride [Moles/Vol] 106 mmol/L 98 - 10 8 mmol/L [facility] CO2 [Moles/Vol] 22 mmol/L 21 - 31 mmol/L [facility] Creatinine [Mass/Vol] 5.23 mg/dL High 0.70 - 1.30 mg/dL [facility] GFR/1.73 sq M.predicted CKD-EPI (S/P/Bld) [Vol rate/Area] 13 Low >=60 mL/min/1.73m 2 [facility] Comment on above: Reported eGFR is bas ed on the CKD-EPI 2020 equation using creatinine, age, and sex. Glucose [Mass/Vol] 116 mg/dL High 70 - 99 mg/dL [facility] Interpretation and review of laboratory results Abnormal [facility] Osmolality Calc [Osmolality] 305 [facility] Potassium [Moles/Vol] 4.6 mmol/L 3.5 - 5.0 mmol/L [facility] Sodium [Moles/Vol] 140 mmol/L 135 - 145 mmol/L [facility] Urea nitrogen [Mass/Vol] 42 mg/dL High 7 - 25 mg/dL [facility] Urea nitrogen/Creatinine [Mass ratio] 8 mg/mg [facility] EXTRA MICROon 05-16-2022 [facility] LT BLUE TOP TUBEon 2 [facility] LYTES (NA, K, CL) - URINE - RANDOMon 05-16-2022 Chloride (24H U) [Moles/Vol] 68 mmol/L [facility] Potassium (24H U) [Moles/Vol] 36.7 mmol/L [facility] Sodium (24H U) [Moles/Vol] 55 mmol/L [facility] The reference range has not been established for random urine specimens. The test result should be integrated into the clinical context for interpretation. [facility] MAGNESIUMon 05-16-2022 Interpretation and review of laboratory results Normal [facility] Magnesium [Mass/Vol] 1.7 mg/dL 1.6 - 2 .6 mg/dL [facility] NOVEL CORONAVIRUS PCROrdered By: Edson Candelario on 05-16-2022 SARS-CoV-2 (COVID-19) RNA ESTELITA+probe Ql (Unsp spec) Not detected NOT DETECTED [facility] Comment on above: [facility] Negative results [...] use authorization for use by authorized laboratories. [facility] No Panel Informationon 05-16 [facility] OSMOLALITY, URINEon 05-16-20 Interpretation and review of laboratory results Normal [facility] Osmolality (U) [Osmolality] 320 mosm/kg [facility] The reference range has not been established for random urine specimens. The test result should be integrated into the clinical context for interpretation. [facility] PROCALCITONINon 05-16-2022 Interpretation and review of laboratory results Normal [facility] Procalcitonin [Mass/Vol] 0.18 ng/mL <0.50 [facility] Comment on above: Procalcitonin is an [...] and trend procalcitonin in various clinical settings. [email or web address]=[email or web address] Two common cutoffs associated with bacterial infections are as follows. Respiratory tract infections: >0.25 ng/mL Sepsis/septic shock: >0.5 ng/mL Procalcitonin should not be used alone as a diagnostic tool, however. All procalcitonin results should be interpreted in association with the patients clinical condition and all laboratory findings. [facility] PT,INR,PTTon 05-16-2022 aPTT Coag (PPP) [Time] 30.3 s [facility] INR Coag (Bld) [Relative time] 1.1 {INR} [facility] Interpretation and review of laboratory results Normal [facility] PT Coag (PPP) [Time] 14.1 s [facility] SARS-CoV-2 (COVID-19) RNA NA A+probe Ql (Unsp spec)Ordered By: Edson Candelario on 05-16-2022 Interpretation and review of laboratory results Normal [facility] TACROLIMUS LEVEL, TROUGH (UT E DRUG LEVEL)Ordered By: Mariama Nick on 05-16-2022 Interpretation and review of laboratory results Normal [facility] Tacrolimus (Bld) [Mass/Vol] 4.1 ng/mL Bone Marrow Transplant: 4.0-12.0, Therapeutic: 5.0-15.0 [facility] Method performed is a chemiluminescent microparticle immunoasssay on the [employer] i2000. The range is based on experience at [facility] and users should be aware that target concentrations vary widely depending on concomitant therapy, time post-transplant, and desired degree of immunosuppression. [facility] URINE PROTEIN/CREA RATIO, RA Smiley 05-16-2022 Creatinine (24H U) [Mass/Vol] 59.82 mg/dL [facility] Protein Unsp time (U) [Mass/Vol] 111 mg/dL [facility] Protein/Creatinine (U) [Mass ratio] 1.856 mg/g [facility] US for transplanted kidney dina [...] appearing vascular flow in the transplant kidney. [facility] Radiology Study observation (narrative) [facility] US for transplanted kidney l imitedOrdered By: Rosendo Matute on 05-16-2022 [facility] Work Phone: CBC AND ELECTRONIC DIFFon Basophils (Bld) [#/Vol] 10*3/uL 0.00 - 0.09 K/uL [facility] Basophils/100 WBC (Bld) 0.2 % [facility] Differential cell count method Nom (Bld) Electronic Differential [facility] Eosinophils (Bld) [#/Vol] 10*3/uL 0.00 - 0.48 K/uL [facility] Eosinophils/100 WBC (Bld) 0.0 % [facility] Erythrocyte distribution width (RBC) [Ratio] 12.8 % 10.9 - 14.3 % [facility] Hematocrit (Bld) [Volume fraction] 46.0 % 39.6 - 48.8 % [facility] Hemoglobin (Bld) [Mass/Vol] 14.6 g/dL 13.4 - 16.8 g/dL [facility] Immature granulocytes (Bld) [#/Vol] 0.07 10*3/uL <=0.08 [facility] Immature granulocytes/100 WBC (Bld) 0.4 % [facility] Interpretation and review of laboratory results Abnormal [facility] Lymphocytes (Bld) [#/Vol] 1.49 10*3/uL 0.83 - 3.57 K/uL [facility] Lymphocytes/100 WBC (Bld) 9.4 % [facility] MCH (RBC) [Entitic mass] 28.2 pg 26.1 - 33.3 pg [facility] MCHC (RBC) [Mass/Vol] 31.7 g/dL Low 31.9 - 36.5 g/dL [facility] MCV (RBC) [Entitic vol] 89.0 fL 79.0 - 94.5 fL [facility] Monocytes (Bld) [#/Vol] 1.45 10*3/uL High 0.24 - 0.93 K/uL [facility] Monocytes/100 WBC (Bld) 9.2 % [facility] Neutrophils (Bld) [#/Vol] 12.77 10*3/uL High 1.57 - 6.19 K/uL [facility] Nucleated RBC/100 WBC (Bld) [Ratio] 0.0 % <=0.2 /100 WBC [facility] Platelet mean volume (Bld) [Entitic vol] 9.9 fL 8.7 - 12.3 fL [facility] Platelets (Bld) [#/Vol] 250 10*3/uL 146 - 337 K/uL [facility] RBC (Bld) [#/Vol] 5.17 10*6/uL [facility] Segmented neutrophils/100 WBC (Bld) 80.8 % [facility] WBC (Bld) [#/Vol] 15.81 10*3/uL High 3.73 - 10 .10 K/uL [facility] CBC AUTO DIFFon 05-15-2022 BASO # 0.0 103/ul Normal 0.0-0.1 [facility] Comment on above: Performed By: #### C BC #### [facility] [address] [address] [address] Dwight Waters Basophils/100 WBC (Bld) 0.3 % Normal 0.2-2.0 [facility] Comment on above: Performed By: #### C BC #### [facility] [address] [address] [address] Dwight Waters EO # 0.1 103/ul Normal 0.0-0.7 [facility] Comment on above: Performed By: #### C BC #### [facility] [address] [place] [address] Dr. Dwight Waters Eosinophils/100 WBC (Bld) 0.8 % Critically low 0.9-7.0 [facility] Comment on above: Performed By: #### C BC #### [facility] [address] [place] [address] Dr. Dwight Waters Erythrocyte distribution width (RBC) [Ratio] 12.7 % Normal 11.0-15.0 [facility] Comment on above: Performed By: #### C BC #### [facility] [address] [place] [address] Dr. Dwight Waters Hematocrit (Bld) [Volume fraction] 43.5 % Normal 42.0-54.0 [facility] Comment on above: Performed By: #### C BC #### [facility] [address] [place] [address] Dr. Dwight Waters Hemoglobin (Bld) [Mass/Vol] 14.4 g/dL Normal 14.0-18.0 [facility] Comment on above: Performed By: #### C BC #### [facility] [address] [place] [address] Dr. Dwight Waters IG # 0.02 10e3/ul Normal 0.00-0.03 [facility] Comment on above: Performed By: #### C BC #### [facility] [address] [place] [address] Dr. Dwight Waters IG % 0.2 % Normal 0.0-0.5 [facility] Comment on above: Performed By: #### C BC #### [facility] [address] [place] [address] Dr. Dwight Waters LYMPH # 1.5 103/ul Normal 1.2-3.8 [facility] Comment on above: Performed By: #### C BC #### [facility] [address] [place] [address] Dr. Dwight Waters Lymphocytes/100 WBC (Bld) 12.5 % Critically low 20.5-60.0 [facility] Comment on above: Performed By: #### C BC #### [facility] [address] [place] [address] Dr. Dwight Waters MANUAL DIFF REQ NO Normal [facility] Comment on above: Performed By: #### C BC #### [facility] [address] [place] [address] Dr. Dwight Waters MCH (RBC) [Entitic mass] 28.6 pg Normal 25.9-34.0 [facility] Comment on above: Performed By: #### C BC #### [facility] [address] [place] [address] Dr. Dwight Waters MCHC (RBC) [Mass/Vol] 33.1 g/dL Normal 29.9-35.2 [facility] Comment on above: Performed By: #### C BC #### [facility] [address] [place] [address] Dr. Dwight Waters MCV (RBC) [Entitic vol] 86.3 fL Normal 80.0-94.0 [facility] Comment on above: Performed By: #### C BC #### [facility] [address] [place] [address] Dr. Dwight Waters MONO # 1.0 103/ul Critically high 0.3-0.8 [facility] Comment on above: Performed By: #### C BC #### [facility] [address] [place] [address] Dr. Dwight Waters Monocytes/100 WBC (Bld) 8.2 % Normal 1.7-12.0 [facility] Comment on above: Performed By: #### C BC #### [facility] [address] [place] [address] Dr. Dwight Waters NEUT # 9.1 103/ul Critically high 1.4-6.5 [facility] Comment on above: Performed By: #### C BC #### [facility] [address] [place] [address] Dr. Dwight Waters Neutrophils/100 WBC (Bld) 78.0 % Critically high 43.0-75.0 [facility] Comment on above: Performed By: #### C BC #### [facility] [address] [address] [address] Dwight Waters Platelet mean volume (Bld) [Entitic vol] 9.8 fL Normal 9.5-13.5 [facility] Comment on above: Performed By: #### C BC #### [facility] [address] [address] [address] Dwight Waters PLT 251 103/ul Normal 150-450 [facility] Comment on above: Performed By: #### C BC #### [facility] [address] [address] [address] Dwight Waters RBC 5.04 106/ul Normal 4.70-6.10 [facility] Comment on above: Performed By: #### C BC #### [facility] [address] [address] [address] Dwight Waters WBC 11.6 103/ul Critically high 4.0-11.0 [facility] Comment on above: Performed By: #### C BC #### [facility] [address] [address] [address] Dwight Waters CHEM 6 (LYTES, BUN CREA)on 0 05-15-2022 Anion gap [Moles/Vol] 12 mmol/L 7 - 17 mmol/L [facility] Chloride [Moles/Vol] 105 mmol/L 98 - 10 8 mmol/L [facility] CO2 [Moles/Vol] 26 mmol/L 21 - 31 mmol/L [facility] Creatinine [Mass/Vol] 2.85 mg/dL High 0.70 - 1.30 mg/dL [facility] GFR/1.73 sq M.predicted CKD-EPI (S/P/Bld) [Vol rate/Area] 26 Low >=60 mL/min/1.73m 2 [facility] Comment on above: Reported eGFR is bas ed on the CKD-EPI 2020 equation using creatinine, age, and sex. Potassium [Moles/Vol] 4.6 mmol/L 3.5 - 5.0 mmol/L [facility] Sodium [Moles/Vol] 138 mmol/L 135 - 145 mmol/L [facility] Urea nitrogen [Mass/Vol] 32 mg/dL High 7 - 25 mg/dL [facility] Urea nitrogen/Creatinine [Mass ratio] 11 mg/mg [facility] CT ABD/PELVIS WO CONon 05-15 CT [...] transplanted kidney with moderate right-sided hydronephrosis. 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 Multiple nonobstructive [...] transplanted kidney with moderate right-sided hydronephrosis. 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 Multiple nonobstructive right renal calculi measuring up to 8 mm. FOLLOW-UP: Follow-up as clinically indicated. Electronically authenticated by: LYNDSAY JEAN Date: 2022-05-15 05:04 Normal [facility] Covid-19 PCR (CVDTB)on 04-30 SARS-CoV-2 (COVID-19) RNA ESTELITA+probe Ql (Unsp spec) Not detected Normal NOT DETECTED [facility] Comment on above: Result Comment: When diagnostic [...] for this test is supported by the [employer] of [employer] and Human Service's declaration that [...] used). Performed By: #### U RTPCR #### [facility] [address] [place] [address] Dr. Dwight Waters GLUCOSEon 05-15-2022 Glucose [Mass/Vol] 141 mg/dL High 70 - 99 mg/dL [facility] GOLD TOP TUBEon 05-15-2022 [facility] HEPATIC FUNCTION PANELon Albumin [Mass/Vol] 4.3 g/dL 3.5 - 5.0 g/dL [facility] ALP [Catalytic activity/Vol] 85 U/L 32 - 126 U/L [facility] ALT [Catalytic activity/Vol] 13 U/L 10 - 52 U/L [facility] AST [Catalytic activity/Vol] 15 U/L 10 - 39 U/L [facility] Bilirubin [Mass/Vol] 0.8 mg/dL <1.5 [facility] Bilirubin.direct [Mass/Vol] 0.2 mg/dL <0.3 [facility] Interpretation and review of laboratory results Normal [facility] Protein [Mass/Vol] 7.3 g/dL 6.4 - 8.3 g/dL [facility] LIPASEon 05-15-2022 Lipase [Catalytic activity/Vol] 8 U/L Low 11 - 82 U/L [facility] No Panel Informationon 05-15 Interpretation and review of laboratory results Abnormal [facility] PROF 14(COMP METB)on 022 Albumin [Mass/Vol] 3.8 g/dL Normal 3.4-5.0 [facility] Comment on above: Performed By: #### U RTPCR #### [facility] [address] [place] [address] Dr. Dwight Waters Albumin/Globulin [Mass ratio] 1.1 {ratio} Normal [facility] Comment on above: Performed By: #### U RTPCR #### [facility] [address] [place] [address] Dr. Dwight Waters ALP [Catalytic activity/Vol] 92 U/L Normal 46-116 [facility] Comment on above: Performed By: #### U RTPCR #### [facility] [address] [place] [address] Dr. Dwight Waters ALT [Catalytic activity/Vol] 25 U/L Normal 16-63 [facility] Comment on above: Performed By: #### U RTPCR #### [facility] [address] [place] [address] Dr. Dwight Waters Anion gap [Moles/Vol] 14.6 mmol/L Normal [facility] Comment on above: Performed By: #### U RTPCR #### [facility] [address] [place] [address] Dr. Dwight Waters AST [Catalytic activity/Vol] 17 U/L Normal 15-37 [facility] Comment on above: Performed By: #### U RTPCR #### [facility] [address] [place] [address] Dr. Dwight Waters Bilirubin [Mass/Vol] 0.6 mg/dL Normal 0.2-1.0 [facility] Comment on above: Performed By: #### U RTPCR #### [facility] [address] [place] [address] Dr. Dwight Waters Calcium [Mass/Vol] 9.9 mg/dL Normal 8.5-10.1 [facility] Comment on above: Performed By: #### U RTPCR #### [facility] [address] [place] [address] Dr. Dwight Waters Chloride [Moles/Vol] 106 mmol/L Normal 98-107 [facility] Comment on above: Performed By: #### U RTPCR #### [facility] [address] [place] [address] Dr. Dwight Waters CO2 [Moles/Vol] 24.2 mmol/L Normal 21.0-32.0 [facility] Comment on above: Performed By: #### U RTPCR #### [facility] [address] [place] [address] Dr. Dwight Waters Creatinine [Mass/Vol] 1.58 mg/dL Critically high 0.70-1.30 [facility] Comment on above: Performed By: #### U RTPCR #### [facility] [address] [place] [address] Dr. Dwight Waters EGFR-AF KAZAKH 56 mL/min/1.73m2 Critically low >=60 [facility] Comment on above: Performed By: #### U RTPCR #### [facility] [address] [place] [address] Dr. Dwight Waters EGFR-NON AF KAZAKH 46 mL/min/1.73m2 Critically low >=60 [facility] Comment on above: Performed By: #### U RTPCR #### [facility] [address] [place] [address] Dr. Dwight Waters Globulin (S) [Mass/Vol] 3.5 g/dL Normal [facility] Comment on above: Performed By: #### U RTPCR #### [facility] [address] [place] [address] Dr. Dwight Waters Glucose [Mass/Vol] 162 mg/dL Critically high 74-106 [facility] Comment on above: Performed By: #### U RTPCR #### [facility] [address] [place] [address] Dr. Dwight Waters Potassium [Moles/Vol] 3.8 mmol/L Normal 3.5-5.1 [facility] Comment on above: Performed By: #### U RTPCR #### [facility] [address] [place] [address] Dr. Dwight Waters Protein [Mass/Vol] 7.3 g/dL Normal 6.4-8.2 [facility] Comment on above: Performed By: #### U RTPCR #### [facility] [address] [address] [address] Dwight Waters Sodium [Moles/Vol] 141 mmol/L Normal 136-145 [facility] Comment on above: Performed By: #### U RTPCR #### [facility] [address] [address] [address] Dwight Waters Urea nitrogen [Mass/Vol] 22.0 mg/dL Critically high 7.0-18.0 [facility] Comment on above: Performed By: #### U RTPCR #### [facility] [address] [address] [address] Dwight Waters Urea nitrogen/Creatinine [Mass ratio] 13.9 mg/mg Normal [facility] Comment on above: Performed By: #### U RTPCR #### [facility] [address] [address] [address] Dwight Waters Portable XR Chest Viewson [...] chest. IMPRESSION IMPRESSION: No acute cardiopulmonary disease [facility] Radiology Study observation (narrative) [facility] Portable XR Chest ViewsOrder ed By: Vladislav Omer on 05-15-2022 [facility] URINE DIPSTICK; REFLEX MICRO SCOPY; REFLEX CULTURE PERFORMABLEon 05-15-2022 Appearance (U) Clear Clear [facility] Color (U) Yellow Yellow [facility] Glucose Test strip (U) [Mass/Vol] 100 mg/dL Abnormal Negative [facility] Interpretation and review of laboratory results Abnormal [facility] Ketones (U) [Mass/Vol] Negative Negative [facility] Leukocyte esterase Test strip Ql (U) Large Abnormal Negative [facility] Nitrite Ql (U) Negative Negative [facility] pH (U) 6.0 [pH] 5.0 - 7.0 [facility] Protein (U) [Mass/Vol] 100 mg/dL Abnormal Negative [facility] RBC (U) [#/Vol] Large Abnormal Negative [facility] Specific gravity (U) [Rel density] 1.010 [facility] Urobilinogen (U) [Mass/Vol] 0.2 E.U./dL 0.2 E.U/dL, 1.0 E.U/dL [facility] URINE MICROSCOPIC WITH REFLE X TO CULTUREOrdered By: Rey Bro on 05-15-2022 Bacteria LM Ql (Urine sed) ABSENT ABSENT [facility] Epithelial cells.squamous LM Ql (Urine sed) ABSENT 1/hpf = 1+, 2-5/hpf = 2+, 0/hpf = 0+, ABSENT [facility] Interpretation and review of laboratory results Abnormal [facility] RBC LM.HPF (Urine sed) [#/Area] /[HPF] Abnormal 0 - 2 /HPF [facility] WBC LM.HPF (Urine sed) [#/Area] 10-20 Abnormal 0 - 5 /HPF [facility] CT ABD/PELVIS WO CONon 05-12 CT ABD/PELVIS WO CON Begin Addendum #[address] Lund 3:25 PM EST 05/11/2022. Begin Addendum #2 IMPRESSION below should also contain the followin. 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 The pen[place]scot kidneys are progressively atrophic bilaterally compared to [...] of 06/14/2020 are no longer present. The pen[place]scot distal right ureter is decompressed beyond this [...] with surgical history for renal graft and penobscot right urinary drainage, as a discrete ureteroneocystostomy is not identified, and the graft may be draining via a ureteroureterostomy. Urology consultation recommended. 3. 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 Normal [facility] CBC AUTO DIFFon 05-11-2022 BASO # 0.1 103/ul Normal 0.0-0.1 [facility] Comment on above: Performed By: #### U RTPCR #### [facility] [address] [place] [address] Dr. Dwight Waters Basophils/100 WBC (Bld) 0.8 % Normal 0.2-2.0 [facility] Comment on above: Performed By: #### U RTPCR #### [facility] [address] [place] [address] Dr. Dwight Waters EO # 0.2 103/ul Normal 0.0-0.7 [facility] Comment on above: Performed By: #### U RTPCR #### [facility] [address] [place] [address] Dr. Dwight Waters Eosinophils/100 WBC (Bld) 2.5 % Normal 0.9-7.0 [facility] Comment on above: Performed By: #### U RTPCR #### [facility] [address] [place] [address] Dr. Dwight Waters Erythrocyte distribution width (RBC) [Ratio] 12.5 % Normal 11.0-15.0 [facility] Comment on above: Performed By: #### U RTPCR #### [facility] [address] [place] [address] Dr. Dwight Waters Hematocrit (Bld) [Volume fraction] 48.3 % Normal 42.0-54.0 [facility] Comment on above: Performed By: #### U RTPCR #### [facility] [address] [place] [address] Dr. Dwight Waters Hemoglobin (Bld) [Mass/Vol] 15.3 g/dL Normal 14.0-18.0 [facility] Comment on above: Performed By: #### U RTPCR #### [facility] [address] [place] [address] Dr. Dwight Waters IG # 0.01 10e3/ul Normal 0.00-0.03 [facility] Comment on above: Performed By: #### U RTPCR #### [facility] [address] [place] [address] Dr. Dwight Waters IG % 0.2 % Normal 0.0-0.5 [facility] Comment on above: Performed By: #### U RTPCR #### [facility] [address] [place] [address] Dr. Dwight Waters LYMPH # 1.9 103/ul Normal 1.2-3.8 [facility] Comment on above: Performed By: #### U RTPCR #### [facility] [address] [place] [address] Dr. Dwight Waters Lymphocytes/100 WBC (Bld) 29.8 % Normal 20.5-60.0 [facility] Comment on above: Performed By: #### U RTPCR #### [facility] [address] [place] [address] Dr. Dwight Waters MANUAL DIFF REQ NO Normal [facility] Comment on above: Performed By: #### U RTPCR #### [facility] [address] [place] [address] Dr. Dwight Waters MCH (RBC) [Entitic mass] 28.2 pg Normal 25.9-34.0 [facility] Comment on above: Performed By: #### U RTPCR #### [facility] [address] [place] [address] Dr. Dwight Waters MCHC (RBC) [Mass/Vol] 31.7 g/dL Normal 29.9-35.2 [facility] Comment on above: Performed By: #### U RTPCR #### [facility] [address] [place] [address] Dr. Dwight Waters MCV (RBC) [Entitic vol] 89.1 fL Normal 80.0-94.0 [facility] Comment on above: Performed By: #### U RTPCR #### [facility] [address] [place] [address] Dr. Dwight Waters MONO # 0.6 103/ul Normal 0.3-0.8 [facility] Comment on above: Performed By: #### U RTPCR #### [facility] [address] [place] [address] Dr. Dwight Waters Monocytes/100 WBC (Bld) 9.0 % Normal 1.7-12.0 [facility] Comment on above: Performed By: #### U RTPCR #### [facility] [address] [place] [address] Dr. Dwight Waters NEUT # 3.6 103/ul Normal 1.4-6.5 [facility] Comment on above: Performed By: #### U RTPCR #### [facility] [address] [place] [address] Dr. Dwight Waters Neutrophils/100 WBC (Bld) 57.7 % Normal 43.0-75.0 [facility] Comment on above: Performed By: #### U RTPCR #### [facility] [address] [place] [address] Dr. Dwight Waters Platelet mean volume (Bld) [Entitic vol] 9.9 fL Normal 9.5-13.5 [facility] Comment on above: Performed By: #### U RTPCR #### [facility] [address] [place] [address] Dr. Dwight Waters PLT 249 103/ul Normal 150-450 [facility] Comment on above: Performed By: #### U RTPCR #### [facility] [address] [place] [address] Dr. Dwight Waters RBC 5.42 106/ul Normal 4.70-6.10 [facility] Comment on above: Performed By: #### U RTPCR #### [facility] [address] [place] [address] Dr. Dwight Waters WBC 6.3 103/ul Normal 4.0-11.0 [facility] Comment on above: Performed By: #### U RTPCR #### [facility] [address] [place] [address] Dr. Dwight Waters ER URINE PROFILEon 2 Bilirubin Ql (U) Unable to perform te sting due to color interference. Abnormal NEGATIVE [facility] Comment on above: Performed By: #### U RTPCR #### [facility] [address] [place] [address] Dr. Dwight Waters Clarity (U) TURBID Abnormal CLEAR [facility] Comment on above: Performed By: #### U RTPCR #### [facility] [address] [place] [address] Dr. Dwight Waters Color (U) RED Abnormal YELLOW [facility] Comment on above: Performed By: #### U RTPCR #### [facility] [address] [place] [address] Dr. Dwight Waters ERUAHD A micrscopic examina tion will be performed if indicated. Normal [facility] Comment on above: Performed By: #### U RTPCR #### [facility] [address] [place] [address] Dr. Dwight Waters Glucose Ql (U) Unable to perform te sting due to color interference. Abnormal NEGATIVE [facility] Comment on above: Performed By: #### U RTPCR #### [facility] [address] [place] [address] Dr. Dwight Waters Hemoglobin Ql (U) Unable to perform te sting due to color interference. Abnormal NEGATIVE [facility] Comment on above: Performed By: #### U RTPCR #### [facility] [address] [place] [address] Dr. Dwight Waters Ketones Ql (U) Unable to perform te sting due to color interference. Abnormal NEGATIVE [facility] Comment on above: Performed By: #### U RTPCR #### [facility] [address] [place] [address] Dr. Dwight Waters LEUKOCYTES Unable to perform te sting due to color interference. Abnormal NEGATIVE [facility] Comment on above: Performed By: #### U RTPCR #### [facility] [address] [place] [address] Dr. Dwight Waters Nitrite Ql (U) Unable to perform te sting due to color interference. Abnormal NEGATIVE [facility] Comment on above: Performed By: #### U RTPCR #### [facility] [address] [place] [address] Dr. Dwight Waters pH (U) 6.5 [pH] Normal 5-9 [facility] Comment on above: Performed By: #### U RTPCR #### [facility] [address] [place] [address] Dr. Dwight Waters SPEC GRAVITY 1.020 Normal 1.005-<=1.02 5 [facility] Comment on above: Performed By: #### U RTPCR #### [facility] [address] [place] [address] Dr. Dwight Waters UA PROTEIN Unable to perform te sting due to color interference. Normal NEGATIVE/ TRACE [facility] Comment on above: Performed By: #### U RTPCR #### [facility] [address] [place] [address] Dr. Dwight Waters UR MICRO IND INDICATED Normal [facility] Comment on above: Performed By: #### U RTPCR #### [facility] [address] [place] [address] Dr. Dwight Waters UROBILINOGEN Unable to perform te sting due to color interference. Normal 0.2 - 1.0 [facility] Comment on above: Performed By: #### U RTPCR #### [facility] [address] [place] [address] Dr. Dwight Waters PROF 14(COMP METB)on 022 Albumin [Mass/Vol] 3.8 g/dL Normal 3.4-5.0 [facility] Comment on above: Performed By: #### C MP #### [facility] [address] [place] [address] Dr. Dwight Waters Albumin/Globulin [Mass ratio] 1.1 {ratio} Normal [facility] Comment on above: Performed By: #### C MP #### [facility] [address] [place] [address] Dr. Dwight Waters ALP [Catalytic activity/Vol] 106 U/L Normal 46-116 [facility] Comment on above: Performed By: #### C MP #### [facility] [address] [place] [address] Dr. Dwight Waters ALT [Catalytic activity/Vol] 30 U/L Normal 16-63 [facility] Comment on above: Performed By: #### C MP #### [facility] [address] [place] [address] Dr. Dwight Waters Anion gap [Moles/Vol] 11.7 mmol/L Normal [facility] Comment on above: Performed By: #### C MP #### [facility] [address] [place] [address] Dr. Dwight Waters AST [Catalytic activity/Vol] 16 U/L Normal 15-37 [facility] Comment on above: Performed By: #### C MP #### [facility] [address] [place] [address] Dr. Dwight Waters Bilirubin [Mass/Vol] 0.6 mg/dL Normal 0.2-1.0 [facility] Comment on above: Performed By: #### C MP #### [facility] [address] [place] [address] Dr. Dwight Waters Calcium [Mass/Vol] 9.1 mg/dL Normal 8.5-10.1 [facility] Comment on above: Performed By: #### C MP #### [facility] [address] [place] [address] Dr. Dwight Waters CO2 [Moles/Vol] 27.4 mmol/L Normal 21.0-32.0 [facility] Comment on above: Performed By: #### C MP #### [facility] [address] [address] [address] Dwight Waters Creatinine [Mass/Vol] 1.18 mg/dL Normal 0.70-1.30 [facility] Comment on above: Performed By: #### C MP #### [facility] [address] [address] [address] Dwight Waters EGFR-AF KAZAKH >60 Normal >=60 [facility] Comment on above: Performed By: #### C MP #### [facility] [address] [place] [address] Dr. Dwight Waters EGFR-NON AF KAZAKH >60 Normal >=60 [facility] Comment on above: Performed By: #### C MP #### [facility] [address] [place] [address] Dr. Dwight Waters Globulin (S) [Mass/Vol] 3.6 g/dL Normal [facility] Comment on above: Performed By: #### C MP #### [facility] [address] [address] [address] Dwight Waters Glucose [Mass/Vol] 192 mg/dL Critically high 74-106 T [facility] Comment on above: Performed By: #### C MP #### [facility] [address] [place] [address] Dr. Dwight Waters Potassium [Moles/Vol] 4.1 mmol/L Normal 3.5-5.1 [facility] Comment on above: Performed By: #### C MP #### [facility] [address] [place] [address] Dr. Dwight Waters Protein [Mass/Vol] 7.4 g/dL Normal 6.4-8.2 [facility] Comment on above: Performed By: #### C MP #### [facility] [address] [place] [address] Dr. Dwight Waters Sodium [Moles/Vol] 142 mmol/L Normal 136-145 [facility] Comment on above: Performed By: #### C MP #### [facility] [address] [place] [address] Dr. Dwight Waters Urea nitrogen [Mass/Vol] 17.0 mg/dL Normal 7.0-18.0 [facility] Comment on above: Performed By: #### C MP #### [facility] [address] [place] [address] Dr. Dwight Waters Urea nitrogen/Creatinine [Mass ratio] 14.4 mg/mg Normal [facility] Comment on above: Performed By: #### C MP #### [facility] [address] [place] [address] Dr. Dwight Waters URINE MICROSCOPIC ONLYon BACTERIA NONE SEEN Normal NONE SEEN [facility] Comment on above: Performed By: #### U RTPCR #### [facility] [address] [place] [address] Dr. Dwight Waters Bacteria identified Cx Nom (U) NOT INDICATED Normal [facility] Comment on above: Performed By: #### U RTPCR #### [facility] [address] [place] [address] Dr. Dwight Waters CAST NONE SEEN Normal NONE SEEN [facility] Comment on above: Performed By: #### U RTPCR #### [facility] [address] [place] [address] Dr. Dwight Waters Crystals LM Nom (Urine sed) NONE SEEN Normal NONE SEEN [facility] Comment on above: Performed By: #### U RTPCR #### [facility] [address] [place] [address] Dr. Dwight Waters Epithelial cells LM Ql (Urine sed) RARE Normal NONE SEEN /RARE [facility] Comment on above: Performed By: #### U RTPCR #### [facility] [address] [place] [address] Dr. Dwight Waters MUCOUS NONE SEEN Normal NONE SEEN [facility] Comment on above: Performed By: #### U RTPCR #### [facility] [address] [place] [address] Dr. Dwight Waters RBC (U) [#/Vol] /uL Abnormal 0-2 [facility] Comment on above: Performed By: #### U RTPCR #### [facility] [address] [address] [address] Dwight Waters WBC NONE SEEN Normal NONE SEEN [facility] Comment on above: Performed By: #### U RTPCR #### [facility] [address] [address] [address] Dwight Waters K (Potassium)on 01-06-2020 Potassium [Moles/Vol] 4.4 mmol/L Normal 3.7-5.3 [facility] Comment on above: Performed By: #### K #### [facility] [address] [place] [address] [employer] Guard: Kehinde Woodward MD Potassiumon 01-06-2020 Potassium [Moles/Vol] 4.4 mmol/L 3.7 - 5.3 mmol/L [facility] Work Phone: Hemoglobin and Hematocrit, B loodon 10-24-2019 Hematocrit (Bld) [Volume fraction] 23.6 % Low 40.7 - 50.3 % [place], [place] Hemoglobin (Bld) [Mass/Vol] 7.3 g/dL Low 13 - 17 g/dL [place] Interpretation and review of laboratory results Abnormal [place] Hgb/Hcton 10-24-2019 Hematocrit (Bld) [Volume fraction] 23.6 % Low 40.7-50.3 [facility] Comment on above: Performed By: #### H H #### [facility] [address] [place] [address] Plant Security Guard: Kehinde Woodward MD Hemoglobin (Bld) [Mass/Vol] 7.3 g/dL Low 13.0-17.0 [facility] Comment on above: Performed By: #### H H #### [facility] [address] [place] [address] Plant Security Guard: Kehinde Woodward MD Hemoglobinon 08-27-2019 Hemoglobin (Bld) [Mass/Vol] 7.5 g/dL Low 13.0-17.0 [facility] Comment on above: Performed By: #### H GB #### [facility] [address] [place] [address] Plant Security Guard: Keihnde Woodward MD Hemoglobin (Bld) [Mass/Vol] 7.5 g/dL Low 13 - 17 g/dL [place] Interpretation and review of laboratory results Abnormal [place] Hemoglobinon 08-08-2019 Hemoglobin (Bld) [Mass/Vol] 8.3 g/dL Low 13.0-17.0 [facility] Comment on above: Performed By: #### H GB #### [facility] [address] [place] [address] Plant Security Guard: Kehinde Woodward MD Hemoglobin (Bld) [Mass/Vol] 8.3 g/dL Low 13 - 17 g/dL [place] Interpretation and review of laboratory results Abnormal [place] Hemoglobinon 08-04-2019 Hemoglobin (Bld) [Mass/Vol] 8.0 g/dL Low 13.0-17.0 [facility] Comment on above: Performed By: #### H GB #### [facility] [address] [place] [address] Plant Security Guard: Kehinde Woodward MD Hemoglobin A1Con 08-03-2019 HbA1c (Bld) [Mass fraction] % Low 4.8-5.9 [facility] Comment on above: Result Comment: The ADA and AACC recommend providing the estimated average glucose result to permit better patient understanding of their HBA1c result. Performed By: #### G LYHGB #### [facility] [address] [place] [address] Plant Security Guard: Kehinde Woodward MD Glucose [Mass/Vol] mg/dL mg/dL [place], [place] Comment on above: The ADA and AACC rec ommend providing the estimated average glucose result to permit better patient understanding of their HBA1c result. HbA1c (Bld) [Mass fraction] % Low 4.8 - 5.9 % [place] Interpretation and review of laboratory results Abnormal [place] Hemoglobinon 08-01-2019 Hemoglobin (Bld) [Mass/Vol] 8.1 g/dL Low 13.0-17.0 [facility] Comment on above: Performed By: #### H GB #### [facility] [address] [place] [address] Plant Security Guard: Kehinde Woodward MD Hemoglobin (Bld) [Mass/Vol] 8.1 g/dL Low 13 - 17 g/dL [place] Interpretation and review of laboratory results Abnormal [place] Hgb/Hcton 06-10-2019 Hematocrit (Bld) [Volume fraction] 24.3 % Low 40.7-50.3 [facility] Comment on above: Performed By: #### H H #### [facility] [address] [place] [facility] Plant Security Guard: Kehinde Woodward MD Hemoglobin (Bld) [Mass/Vol] 7.4 g/dL Low 13.0-17.0 [facility] Comment on above: Performed By: #### H H #### [facility] [address] [place] [address] Plant Security Guard: Kehinde Woodward MD Hemoglobinon 06-01-2019 Hemoglobin (Bld) [Mass/Vol] 7.2 g/dL Low 13.0-17.0 [facility] Comment on above: Performed By: #### H GB #### [facility] [address] [place] [address] Plant Security Guard: Kehinde Woodward MD K (Potassium)on 01-14-2019 Potassium [Moles/Vol] 3.6 mmol/L Low 3.7-5.3 [facility] Comment on above: Performed By: #### K #### [facility] [address] [place] [address] Plant Security Guard: Kehinde Woodward MD Otheron 10-19-2018 IMPRESSION: 1. [...] characteristics determined by Toxicology Laboratory at [facility]. It has not been cleared [...] Amitriptyline(50), Amphetamine(250), Atenolol(500), Barbiturates(1000), Benzoylecgonine(50), Buprenorphine(50), Bupropion(25), Caffeine(34534), Chlordiazepoxide(50), Chlorpheniramine(100), Chlorpromazine(50), Citalopram(100), Clonazepam(200), Cocaine(25), Codeine(200), [...] Code LAB, [facility] TOXICOLOGY SCREEN URINE - [facility] 10-12-2018 Drugs identified Screen Nom (U) For Medical Purposes Only, Non-forensic, screen results are presumptive. No confirmatory testing will follow. Invalid Interpretation Code LAB, [facility] Comment on above: This Liquid Chromato graphy Mass Spectrometry (LC/MS/MS) test was developed and its performance characteristics determined by Toxicology Laboratory at [facility]. It has not been cleared [...] Amitriptyline(50), Amphetamine(250), Atenolol(500), Barbiturates(200), Benzoylecgonine(50), Buprenorphine(500), Bupropion(25), Caffeine(52513), Cannabinoids(THC)(50), Chlordiazepoxide(50), Chlorpheniramine(100), Chlorpromazine(50), Citalopram(100), Clonazepam(200), Cocaine(25), [...] 56 mm[Hg] Candie Almaguer MD Work Phone: [facility] 02-26-2024 09:07-0400 Heart rate 65 /min Candie Almaguer MD Work Phone: [facility] 02-26-2024 09:07-0400 Systolic blood pressure 113 mm[Hg] Candie Almaguer MD Work Phone: [facility] 02-26-2024 09:06-0400 Body height 170.2 cm Candie Almaguer MD Work Phone: [facility] 02-26-2024 09:06-0400 Body mass index (BMI) [Ratio] 28.9 kg/m2 Candie Almaguer MD Work Phone: [facility] 02-26-2024 09:06-0400 Body weight 83.69 kg Candie Almaguer MD Work Phone: [facility] 02-26-2024 09:06-0400 Respiratory rate 20 /min Candie Almaguer MD Work Phone: [facility] 02-26-2024 09:06-0400 SaO2% (BldA) [Mass fraction] 97 % Candie Almaguer MD Work Phone: [facility] 01-23-2024 15:04-0500 Body temperature 97.9 [degF] Kevin Sage MD Work Phone: [facility] 01-23-2024 15:04-0500 Diastolic blood pressure 67 mm[Hg] Kevin Sage MD Work Phone: [facility] 01-23-2024 15:04-0500 Heart rate 51 /min Kevin Sage MD Work Phone: [facility] 01-23-2024 15:04-0500 Respiratory rate 16 /min Kevin Sage MD Work Phone: [facility] 01-23-2024 15:04-0500 SaO2% (BldA) [Mass fraction] 94 % Kevin Sage MD Work Phone: [facility] 01-23-2024 15:04-0500 Systolic blood pressure 151 mm[Hg] Kevin Sage MD Work Phone: [facility] 01-23-2024 10:46-0500 Body mass index (BMI) [Ratio] 30.94 kg/m2 Kevin Sage MD Work Phone: [facility] 01-23-2024 10:46-0500 Body weight 89.6 kg Kevin Sage MD Work Phone: [facility] 01-18-2024 11:21-0500 Body height 170.2 cm Kevin Sage MD Work Phone: [facility] 01-06-2024 09:04-0500 Body height 170.2 cm Zuly Bruno DUTY OFFICER Work Phone: [facility] 01-06-2024 09:04-0500 Body mass index (BMI) [Ratio] 32.42 kg/m2 Zuly Bruno DUTY OFFICER Work Phone: [facility] 01-06-2024 09:04-0500 Body temperature 97.81 [degF] Zuly Bruno DUTY OFFICER Work Phone: [facility] 01-06-2024 09:04-0500 Body weight 93.89 kg Zuly Kiana DUTY OFFICER Work Phone: [facility] 01-06-2024 09:04-0500 Diastolic blood pressure 70 mm[Hg] Zuly Kiana DUTY OFFICER Work Phone: [facility] 01-06-2024 09:04-0500 Heart rate 95 /min Zuly Bruno DUTY OFFICER Work Phone: [facility] 01-06-2024 09:04-0500 Respiratory rate 17 /min Zuly Torresjose e DUTY OFFICER Work Phone: [facility] 01-06-2024 09:04-0500 SaO2% (BldA) [Mass fraction] 99 % Zuly Bruno DUTY OFFICER Work Phone: [facility] 01-06-2024 09:04-0500 Systolic blood pressure 138 mm[Hg] Zuly Annz DUTY OFFICER Work Phone: [facility] 09-11-2023 10:31-0400 Body temperature 97.81 [degF] Steve Yeison MBBS Work Phone: [facility] 09-11-2023 10:31-0400 Diastolic blood pressure 66 mm[Hg] Steve Yeison MBBS Work Phone: [facility] 09-11-2023 10:31-0400 Heart rate 70 /min Steve Yeison MBBS Work Phone: [facility] 09-11-2023 10:31-0400 Respiratory rate 20 /min Steve Yeison MBBS Work Phone: [facility] 09-11-2023 10:31-0400 SaO2% (BldA) [Mass fraction] 91 % Steve Yeison MBBS Work Phone: [facility] 09-11-2023 10:31-0400 Systolic blood pressure 129 mm[Hg] Steve Yeison MBBS Work Phone: [facility] 09-10-2023 15:50-0400 Body mass index (BMI) [Ratio] 31.99 kg/m2 Steve Yeison MBBS Work Phone: [facility] 09-10-2023 15:50-0400 Body weight 92.67 kg Steve Yeison MBBS Work Phone: [facility] 09-02-2023 07:32-0400 Body height 170.2 cm Steve Yeison MBBS Work Phone: [facility] 08-28-2023 13:33-0400 Body height 170.2 cm Steve Yeison MBBS Work Phone: [facility] 08-28-2023 13:33-0400 Body mass index (BMI) [Ratio] 32.12 kg/m2 Steve Yeison MBBS Work Phone: [facility] 08-28-2023 13:33-0400 Body temperature 97.3 [degF] Steve Yeison MBBS Work Phone: [facility] 08-28-2023 13:33-0400 Body weight 93.03 kg Steve Yeison MBBS Work Phone: [facility] 08-28-2023 13:33-0400 Diastolic blood pressure 41 mm[Hg] Steve Yeison MBBS Work Phone: [facility] 08-28-2023 13:33-0400 Heart rate 116 /min Steve Yeison MBBS Work Phone: [facility] 08-28-2023 13:33-0400 Systolic blood pressure 106 mm[Hg] Steve Yeison MBBS Work Phone: [facility] 06-12-2023 14:50-0400 Body mass index (BMI) [Ratio] 33.8 kg/m2 Rebeca Olsen THEATER TECHNICIAN-TUCKPOINTER CLEANER [employer]UL[employer] Work Phone: [facility] 06-12-2023 14:50-0400 Body temperature 97.3 [degF] Rebeca Olsen THEATER TECHNICIAN-TUCKPOINTER CLEANER [employer] Work Phone: [facility] 06-12-2023 14:50-0400 Body weight 97.89 kg Rebeca Olsen THEATER TECHNICIAN-TUCKPOINTER CLEANER [employer]UL[employer]ER Work Phone: [facility] 06-12-2023 14:50-0400 Diastolic blood pressure 77 mm[Hg] Rebeca Olsen THEATER TECHNICIAN-TUCKPOINTER CLEANER [employer]UL[employer]ER Work Phone: [facility] 06-12-2023 14:50-0400 Heart rate 76 /min Rebeca Olsen THEATER TECHNICIAN-TUCKPOINTER CLEANER [employer]ULKER Work Phone: [facility] 06-12-2023 14:50-0400 Systolic blood pressure 146 mm[Hg] Rebeca Olsen THEATER TECHNICIAN-TUCKPOINTER CLEANER [employer]ULKER Work Phone: [facility] 01-16-2023 08:57-0500 Body height 170.2 cm [facility] Work Phone: [facility] 01-16-2023 08:57-0500 Body mass index (BMI) [Ratio] 33.66 kg/m2 [facility] Work Phone: [facility] 01-16-2023 08:57-0500 Body temperature 97.3 [degF] [facility] Work Phone: [facility] 01-16-2023 08:57-0500 Body weight 97.48 kg [facility] Work Phone: [facility] 01-16-2023 08:57-0500 Diastolic blood pressure 75 mm[Hg] [facility] Work Phone: [facility] 01-16-2023 08:57-0500 Heart rate 76 /min [facility] Work Phone: [facility] 01-16-2023 08:57-0500 Systolic blood pressure 142 mm[Hg] [facility] Work Phone: [facility] 09-10-2022 09:38-0400 Body height 170.2 cm Ryan Yepez MD Work Phone: [facility] 09-10-2022 09:38-0400 Body mass index (BMI) [Ratio] 33.67 kg/m2 Ryan Yepez MD Work Phone: 6(654)449-900018 [address] 09-10-2022 09:38-0400 Body weight 97.52 kg Ryan Yepez MD Work Phone: 0(960)476-874976 [place] [address] 09-10-2022 09:38-0400 Diastolic blood pressure 83 mm[Hg] Ryan Yepez MD Work Phone: 1(151)113-833118 [address] 09-10-2022 09:38-0400 Heart rate 64 /min Ryan Yepez MD Work Phone: 6(019)123-808376 [place] [address] 09-10-2022 09:38-0400 SaO2% (BldA) [Mass fraction] 96 % Ryan Yepez MD Work Phone: 6(515)640-545476 [place] [address] 09-10-2022 09:38-0400 Systolic blood pressure 129 mm[Hg] Ryan Yepez MD Work Phone: 9(628)882-997218 [address] 07-07-2022 13:48-0400 Diastolic blood pressure 76 mm[Hg] Ryan Yepez MD Work Phone: 4(013)705-726918 [address] 07-07-2022 13:48-0400 Heart rate 82 /min Ryan Yepez MD Work Phone: 1(566)251-796618 [address] 07-07-2022 13:48-0400 SaO2% (BldA) [Mass fraction] 96 % Ryan Yepez MD Work Phone: 7(946)981-351018 [address] 07-07-2022 13:48-0400 Systolic blood pressure 141 mm[Hg] Ryan Yepez MD Work Phone: 3(319)583-573418 [address] 06-27-2022 13:32-0400 Body height 170.2 cm Ryan Yepez MD Work Phone: [facility] 06-27-2022 13:32-0400 Body mass index (BMI) [Ratio] 34.24 kg/m2 Ryan Yepez MD Work Phone: [facility] 06-27-2022 13:32-0400 Body temperature 98.6 [degF] Ryan Yepez MD Work Phone: [facility] 06-27-2022 13:32-0400 Body weight 99.16 kg Ryan Yepez MD Work Phone: [facility] 06-27-2022 13:32-0400 Diastolic blood pressure 78 mm[Hg] Ryan Yepez MD Work Phone: [facility] 06-27-2022 13:32-0400 Heart rate 77 /min Ryan Yepez MD Work Phone: [facility] 06-27-2022 13:32-0400 SaO2% (BldA) [Mass fraction] 95 % Ryan Yepez MD Work Phone: [facility] 06-27-2022 13:32-0400 Systolic blood pressure 121 mm[Hg] Ryan Yepez MD Work Phone: [facility] 06-27-2022 10:52-0400 Body height 170.2 cm Rena Brewster RN [facility] 06-27-2022 10:52-0400 Body mass index (BMI) [Ratio] 34.46 kg/m2 Rena Brewster RN [facility] 06-27-2022 10:52-0400 Body temperature 98.2 [degF] Rena Brewster RN [facility] 06-27-2022 10:52-0400 Body weight 99.79 kg Rena Brewster RN [facility] 06-27-2022 10:52-0400 Diastolic blood pressure 73 mm[Hg] Rena Brewster RN [facility] 06-27-2022 10:52-0400 Heart rate 78 /min Rena Brewster RN [facility] 06-27-2022 10:52-0400 Respiratory rate 20 /min Rena Brewster RN [facility] 06-27-2022 10:52-0400 SaO2% (BldA) [Mass fraction] 97 % Rena Brewster RN [facility] 06-27-2022 10:52-0400 Systolic blood pressure 135 mm[Hg] Rena Brewster RN [facility] 06-12-2022 14:23-0400 Body mass index (BMI) [Ratio] 34.59 kg/m2 Steve Farrari MBBS Work Phone: [facility] 06-12-2022 14:23-0400 Body temperature 97 [degF] Steve Yeison MBBS Work Phone: [facility] 06-12-2022 14:23-0400 Body weight 100.2 kg Steve Yeison MBBS Work Phone: [facility] 06-12-2022 14:23-0400 Diastolic blood pressure 66 mm[Hg] Steve Yeison MBBS Work Phone: [facility] 06-12-2022 14:23-0400 Heart rate 63 /min Steve Yeison MBBS Work Phone: [facility] 06-12-2022 14:23-0400 Systolic blood pressure 133 mm[Hg] Steve Yeison MBBS Work Phone: [facility] 05-20-2022 15:21-0400 Body temperature 97.9 [degF] Gian Villatoro MD Work Phone: [facility] 05-20-2022 15:21-0400 Diastolic blood pressure 64 mm[Hg] Gian Villatoro MD Work Phone: 7(900)062-358190 [place] [address] 05-20-2022 15:21-0400 Heart rate 55 /min Gian Villatoro MD Work Phone: 5(129)952-592318 [place] [address] 05-20-2022 15:21-0400 Respiratory rate 15 /min Gian Villatoro MD Work Phone: 7(680)937-855718 [place] [address] 05-20-2022 15:21-0400 SaO2% (BldA) [Mass fraction] 95 % Gian Villatoro MD Work Phone: 9(082)096-299018 [place] [address] 05-20-2022 15:21-0400 Systolic blood pressure 145 mm[Hg] Gian Villatoro MD Work Phone: 2(332)920-515318 [place] [address] 05-19-2022 12:15-0400 Body mass index (BMI) [Ratio] 35.87 kg/m2 Gian Villatoro MD Work Phone: 6(773)188-352418 [place] [address] 05-19-2022 12:15-0400 Body weight 103.92 kg Gian Villatoro MD Work Phone: 8(011)979-676018 [place] [address] Comment on above: standing scale 05-16-2022 16:19-0400 Body height 170.2 cm Gian Villatoro MD Work Phone: 2(560)096-16[address] [place] [address] 10-19-2018 08:44-0500 BMI (Body Mass Index) 26.58 [...] BMI (Body Mass Index) 27.24 kg/m2 [facility] Work Phone: 10-12-2018 09:50-0500 Body Temperature 98.6 [degF] [facility] Work Phone: 10-12-2018 09:50-0500 BP Diastolic 80 mm[Hg] [facility] Work Phone: 10-12-2018 09:50-0500 BP Systolic 157 mm[Hg] [facility] Work Phone: 10-12-2018 09:50-0500 Height 169.5 cm [facility] Work Phone: 10-12-2018 09:50-0500 Pulse (Heart Rate) 94 /min [facility] Work Phone: 10-12-2018 09:50-0500 Weight 78.29 kg [facility] Work Phone: Encounters Encounter Date Encounter Type Care Provider Facility Start: 03-17-2024 End: 03-17-2024 ambulatory JOHNNA HOLLIDAY Not Available Start: 03-14-2024 End: 03-14-2024 ambulatory FIDELINA DANIEL Not Available Start: 03-10-2024 End: 03-10-2024 ambulatory JOHNNA SIMSHANTA Not Available Start: 03-08-2024 End: 03-08-2024 ambulatory JOHNNA BRSHANTA Not Available Start: 03-03-2024 End: 03-03-2024 ambulatory JOHNNA BRINK Not Available Start: 03-02-2024 End: 03-02-2024 ambulatory Meka Mnuoz [facility] Start: 03-02-2024 End: 03-02-2024 Patient encounter procedure Meka Munoz [facility] Start: 03-01-2024 ambulatory ZULY AICHHOLZ Facility: [facility] Start: 03-01-2024 End: 03-01-2024 ambulatory JOHNNA MIYA Not Available Start: 02-26-2024 ambulatory ZULY AICHHOLZ Facility: [facility] Start: 02-26-2024 ambulatory ZULY AICHHOLZ Facility: [facility] Start: 02-26-2024 End: 02-26-2024 Office outpatient new 30 minutes Candie Almaguer MD Work Phone: [facility] Comment on above: Heart failure, diast olic, acute (Primary Dx) Start: 02-25-2024 End: 02-25-2024 ambulatory FIDELINA SANCHEZ Not Available Start: 02-23-2024 End: 02-23-2024 ambulatory PALMA PALACIOS Not Available Start: 02-11-2024 End: 02-11-2024 ambulatory ZULY AICHHOLZ Not Available Start: 01-16-2024 Encounter for other preprocedural examination KELVIN PACHECO [facility] Start: 01-16-2024 End: 01-23-2024 Evaluation and management of inpatient ZULY AICHHOLZ Facility:[facility] Start: 01-16-2024 End: 01-23-2024 Evaluation and management of inpatient Kevindaniel Sage MD Work Phone: [id number] Comment on above: Pleural effusion on right Start: 01-16-2024 End: 01-23-2024 Patient encounter status Kevin Sage MD Work Phone: [facility] Work Phone: Start: 01-12-2024 End: 01-12-2024 ambulatory Angel Fete RPh,PharmD [facility] Start: 01-12-2024 End: 01-12-2024 Patient encounter procedure Angel Fete RPh,PharmD [facility] Start: 01-08-2024 Clinisync Result Encounter Generic External Data Provider [facility] External Department Unsolicited Start: 01-08-2024 Clinisync Result Encounter Generic External Data Provider [facility] External Department Unsolicited Start: 01-06-2024 End: 01-06-2024 ambulatory ZULY AICHHOLZ Not Available Start: 01-06-2024 End: 01-06-2024 Office outpatient visit 25 minutes Zuly Bruno DUTY OFFICER Work Phone: [facility] Comment on above: Bilateral lower extr emity edema (Primary Dx); 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); Atherosclerosis 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); Obesity (BMI 30-39.9); DARLENE (obstructive sleep apnea); Tremor; Immunocompromised (CMS/HCC); Primary hypertension ([facility]); Shortness of breath Start: 01-01-2024 Clinisync Result Encounter Generic External Data Provider [facility] External Department Unsolicited Start: 01-01-2024 Clinisync Result Encounter Generic External Data Provider [facility] External Department Unsolicited Start: 11-03-2023 End: 11-03-2023 ambulatory ZULY AICHHOLZ Not Available Start: 10-06-2023 ambulatory Angel Fete RPh,PharmD [facility] Start: 10-06-2023 Patient encounter procedure Angel Fete RPh,PharmD [facility] Start: 09-29-2023 ambulatory ZULY KRISTOPHERHLATISHAZ Facility: [facility] Start: 09-24-2023 ambulatory ZULY AICHHOLZ Facility: [facility] Start: 09-23-2023 ambulatory [facility] Facility: [facility] Start: 09-15-2023 ambulatory [facility] Facility: [facility] Start: 08-28-2023 End: 09-11-2023 [facility] Start: 08-28-2023 End: 09-11-2023 Evaluation and management of inpatient Steve Colón Yeison LEIGH Work Phone: [id number] Start: 08-28-2023 ambulatory [facility] Facility: [facility] Start: 08-28-2023 End: 08-28-2023 Office outpatient visit 25 minutes Steve Katarzyna Yeison MORENOBS Work Phone: [facility] Trans[facility] Comment on above: Immunosuppressed sta tus (Primary Dx); Kidney replaced by transplant; Aftercare following organ transplant; High risk medication use; Other general symptoms and signs; Abnormal blood chemistry; Hypertension secondary to other renal disorders Start: 08-19-2023 ambulatory Meka rueda [facility] Start: 08-19-2023 Patient encounter procedure Meka Munoz H [facility] Start: 06-12-2023 ambulatory [facility]UL[facility] Facility: [facility] Start: 06-12-2023 End: 06-12-2023 Office outpatient visit 25 minutes Steve Katarzyna Yeison MBBS Work Phone: [facility] Comment on above: 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) Start: 06-10-2023 ambulatory Maren Bar RPh,PharmD [facility] Start: 06-10-2023 Patient encounter procedure Maren Bar RPh,PharmD [facility] Start: 05-26-2023 [facility] Start: 04-28-2023 End: 04-29-[address] DOCTOR EVANS Facility: Start: 04-13-2023 End: 04-13-2023 ambulatory [facility] Start: 03-12-2023 ambulatory Angel Fete RPh,PharmD Pharmacy Outpatient [facility] Start: 03-12-2023 Patient encounter procedure Angel Fete RPh,PharmD [facility] Start: 03-10-2023 ambulatory Angel Fete RPh,PharmD [facility] Start: 03-10-2023 Patient encounter procedure Angel Carpio RPh,PharmD Pharmacy [facility]patient [facility] Start: 03-02-2023 End: 03-03-[address] DOCTOR EVANS Facility:[facility] Start: 01-16-2023 End: 01-16-2023 Office outpatient visit 25 minutes Daisha Max DO Work Phone: [facility] Comment on above: Abnormal blood [...] MD Work Phone: [facility] Comment on above: BPH with obstruction /lower urinary tract symptoms (Primary Dx); Encounter for screening for malignant neoplasm of prostate Start: 08-28-2022 End: 08-29-2022 ambulatory ROB BRUNO Facility:[facility] Start: 08-14-2022 End: 08-15-[address] DOCTOR EVANS Facility:[facility] Start: 07-07-2022 End: 07-07-2022 Patient encounter procedure Ryan Yepez MD Work Phone: [facility] Comment on above: Other hydronephrosis (Primary Dx); [...] MD Work Phone: [facility] Comment on above: Other hydronephrosis (Primary Dx) [...] Phone: [facility] Comment on above: Immunosuppressed sta [...] Start: 03-14-2022 ambulatory Comfort Rivera [facility] Work Phone: Pharm[facility] Outpatient [facility] Start: 03-14-2022 Patient encounter procedure Comfort Rivera [facility] Work Phone: [facility]patient [facility] Start: 06-14-2021 End: 06-14-2021 ambulatory Comfort Rivera [facility] Work Phone: [facility] Start: 06-14-2021 Patient encounter procedure Comfort Rivera [facility] Work Phone: [facility] Start: 01-20-2020 End: 01-27-2020 Patient encounter procedure PEPE CASE Facility:[facility] Start: 01-06-2020 End: 01-07-2020 Patient encounter procedure [facility] Start: 01-06-2020 End: 01-06-2020 Subsequent hospital visit by physician [facility] Start: 10-24-2019 End: 10-25-2019 Patient encounter procedure TANA Colón [facility] Start: 10-24-2019 End: 10-24-2019 Subsequent hospital visit by physician [facility] Start: 08-27-2019 End: 08-28-2019 Patient encounter procedure [facility] Start: 08-27-2019 End: 08-27-2019 Subsequent hospital visit by physician [facility] Start: 08-08-2019 End: 08-09-2019 Patient encounter procedure [facility] Start: 08-08-2019 End: 08-08-2019 Subsequent hospital visit by physician [facility] Start: 08-03-2019 End: 08-04-2019 Patient encounter procedure [facility] Start: 08-03-2019 End: 08-03-2019 Subsequent hospital visit by physician [facility] Start: 08-01-2019 End: 08-02-2019 Patient encounter procedure [facility] Start: 08-01-2019 End: 08-01-2019 Subsequent hospital visit by physician [facility] Start: 06-10-2019 End: 06-11-2019 Patient encounter procedure [facility] Start: 06-01-2019 End: 06-02-2019 Patient encounter procedure [facility] Start: 01-14-2019 End: 01-15-2019 Patient encounter procedure [facility] Start: 11-17-2018 End: 11-17-2018 Patient encounter procedure Fidelina Pierson [facility] Pre Transplant Office Comment on above: Social Work Follow-u p Start: 10-19-2018 End: 10-19-2018 Patient encounter Autumn [facility] Pre Transplant Office Comment on [...] 10-13-2018 End: 10-13-2018 Patient encounter procedure Autumn [facility] Pre Transplant Office Comment on above: Reschedule Outside Medical Allan rds Request Start: 10-12-2018 End: 10-12-2018 Patient encounter procedure Sophie Cary [facility] Pre Transplant Office [...] Patient encounter status Comfort Rivera [facility] Work Phone: [facility] Procedures Date Procedure Procedure Detail Performing Clinician Start: 01-23-2024 Glucose measurement, blood Kelvin Pacheco MD, MBBS Work Phone: Start: 01-23-2024 Glucose measurement, blood LU Jain MD Work Phone: Start: 01-23-2024 Assay of magnesium Just in Jake LUZ Work Phone: Start: 01-23-2024 Hepatic function panel Arelis Mera MD Work Phone: Start: 01-23-2024 Oscillating positive expiratory pressure (flutter) physiotherapy Arelsi Mera MD Work Phone: Start: 01-22-2024 CARDIAC RHYTHM Other Ot her Start: 01-22-2024 US Unspecified body region Mini Khan MD Work Phone: Start: 01-22-2024 End: 01-22-2024 Antibody screen Kevin Sage MD Work Phone: Comment on above: Performed By: #### X M ####[facility] (DEFAULT)[address] [place] [address] Start: 01-22-2024 Assay of magnesium Just in [...] MD Work Phone: Start: 01-20-2024 ITRACONAZOLE LEVEL Jennifermatthew Caldwellowan [facility] Work Phone: Start: 01-20-2024 Oscillating positive expiratory [...] nos quantifica tion each organism Fidelina Ortiz [facility] Work Phone: Start: 01-18-2024 Echocardiography ZULY A DELZ Start: 01-18-2024 Echo tthrc r-t 2d w/wom-mode [...] 01-16-2024 Drug screen quantita tive tacrolimus Timothy oJseph MD Work Phone: Start: 01-16-2024 Bilirubin direct Timothy Joseph MD Work Phone: Start: 01-16-2024 CBC AND ELECTRONIC DIFF Timothy Joseph MD Work Phone: Start: 01-16-2024 Complete blood count with white cell differential, automated Timothy Joseph MD Work Phone: Start: 01-16-2024 DARYL AURIS SCREEN BY PCR Carol Ann Capps THEATER TECHNICIAN-ENTERPRISE SALES EXECUTIVE Work Phone: Start: 01-08-2024 ALL CBC WITH [...] DARYL AURIS SCREEN BY PCR Carol Ann Velasco Jefry THEATER TECHNICIAN-[employer] SALES EXECUTIVE Work Phone: Start: 08-28-2023 CBC AND ELECTRONIC [...] above: Performed By: #### C MP #### [facility] [address] [place] [address] Dr. Dwight Waters Start: 07-07-2022 Rmvl nfros [...] Start: 06-12-2022 URINALYSIS REFLEX TO CULTURE Steve Munoz [facility] Work Phone: Start: 05-20-2022 Urography antegrade rs&i [...] Phone: Start: 05-16-2022 Assay of magnesium Milton Benntet MD Work Phone: Start: 05-16-2022 Drug screen [...] liver trans plant Comfort Rivera [facility] Work Phone: Start: 04-08-2020 H/O: liver recipient Liver tra nsplant recipient Comfort Rivera [facility] Work Phone: Start: 01-06-2020 Potassium serum plasma/whole [...] kidney transplant recipient Comfort Rivera [facility] Work Phone: Start: 06-10-2019 HEMOGLOBIN AND HEMAT OCRIT, BLOOD ROB KASMANI Start: 06-01-2019 Blood count hemoglobin ROB KASMANI Start: 03-22-2019 Lipid 1996 panel - S fabricio or Plasma Comfort Rivera [facility] Work Phone: Start: 01-14-2019 Potassium serum plasma/whole [...] Phone: Start: 10-12-2018 End: 10-12-2018 Alpha-fetoprotein serum oYvani Orr Work Phone: Start: 10-12-2018 End: [...] End: 10-12-2018 Assay of iron Yovani Mejias [employer] Work Phone: Start: 10-12-2018 End: 10-12-2018 Assay of parathormone Yovani Mejias [employer] Work Phone: Start: 10-12-2018 End: 10-12-2018 Assay of phosphatase alkaline Yovani Mejias [employer] Phone: Start: 10-12-2018 End: 10-12-2018 Bilirubin total Yovani Mejias [employer] Work Phone: Start: 10-12-2018 End: 10-12-2018 Calcium total Yovani Mejias [employer] Work Phone: Start: 10-12-2018 End: 10-12-2018 CBC, EDIF, PLATELET Yovani Mejias [employer] Work Phone: Start: 10-12-2018 End: 10-12-2018 Creatinine blood Yovani Mejias [employer] Phone: Start: 10-12-2018 End: 10-12-2018 Drug screening cannabinoids natural Yovani Mejias [employer] Work Phone: Start: 10-12-2018 End: 10-12-2018 Hepatitis a antibody haab Yovani Mejias [employer] Phone: Start: 10-12-2018 End: 10-12-2018 Hepatitis b core antibody hbcab total Yovani Mejias [employer] Phone: Start: 10-12-2018 End: 10-12-2018 Hepatitis b surf antibody hbsab Yovani Mejias [employer] Work Phone: Start: 10-12-2018 End: 10-12-2018 Hepatitis c antibody Yovani Mejias [employer] Work Phone: Start: 10-12-2018 End: 10-12-2018 Iaad ia hepatitis b surface antigen Yovani Mejias [employer] Work Phone: Start: 10-12-2018 End: 10-12-2018 Iaad ia hiv-1 ag w/hiv-1 & hiv-2 antbdy single Yovani Mejias [employer] Phone: Start: 10-12-2018 End: 10-12-2018 PSA screening [...] 09-20-2029 Screening for malignant neoplasm of colon [facility] Start: 02-28-2025 Potassium [Moles/volume] in Serum or Plasma [facility] Start: 01-23-2025 Potassium [Moles/volume] in Serum or Plasma POTASSIUM [facility] Start: 08-31-2024 Screening for malignant neoplasm of lung [facility] Start: 06-17-2024 End: 06-17-2024 [facility] Transplant [facility] Start: 06-17-2024 End: 06-17-2024 Patient encounter procedure [facility] Start: 03-22-2024 Fasting lipid profile LIPID SCREENING [facility] Start: 03-22-2024 Lipid panel [facility] Start: 02-26-2024 End: 02-26-2024 Patient encounter procedure 02/26/2024 9:30 AM EDT Office Visit [facility] [address] [place] [phone] Candie Almaguer MD [address] [place] [address] [phone] [facility] Start: 02-11-2024 End: 02-11-2024 Patient encounter procedure 02/11/2024 10:30 AM EDT Office Visit [facility] [address] [place] [address] Zuly Bruno NP [address] [place] [phone] [facility] Start: 02-09-2024 End: 02-09-2024 Telemedicine consultation with patient 02/09/2024 3:30 PM EDT Telemedicine Infectious Diseases Care [facility] [address] [place] [phone] Hakeem Alamo MD [address] [place] [address] [facility] Start: 01-15-2024 End: 01-15-2024 [facility] Transplant [facility] Start: 01-15-2024 End: 01-15-2024 Patient encounter procedure [facility] Start: 01-06-2024 End: 01-06-2026 Echocardiogram 2D complete Echocardiogram 2D complete Echocardiography Routine DARLENE (obstructive sleep apnea) Primary hypertension (CMS/HCC) Bilateral lower extremity edema Shortness of breath Expected: 01/06/2024 (Approximate), Expires: 01/06/2026 [facility] Work Phone: Comment on above: Expected: 01/06/2024 (Approximate), Expi res: 01/06/2026 Start: 01-06-2024 End: 01-06-2024 Patient encounter procedure 01/06/2024 9:00 AM EST Office Visit [facility] [address] [place] [address] Zuly Bruno NP [address] [place] [address] [facility] Start: 12-08-2023 End: 09-07-2024 CT Chest WO contrast [facility] Work Phone: Start: 12-01-2023 COVID-19 VACCINE (2 - Moderna risk series) COVID-19 VACCINE (2 - Moderna risk series) [facility] Start: 09-23-2023 End: 09-23-2023 ambulatory [facility] Start: 09-23-2023 End: 09-23-2023 Telemedicine consultation with patient 09/23/2023 4:00 PM EDT Telemedicine Infect[facility] [address] [place] [phone] Hakeem Alamo MD [address] [place] [address] Infectious Diseases [facility] Start: 09-15-2023 End: 09-10-2024 ITRACONAZOLE LEVEL [facility] Start: 08-25-2023 End: 08-25-2024 ALLOSCREEN RECIPIENT (POST TX PRA) ALLOSCREEN RECIPIENT (POST TX PRA) Lab Routine Kidney replaced by transplant Aftercare following organ transplant Immunosuppressed status High risk medication use Other general symptoms and signs Abnormal blood chemistry Expected: 08/25/2023, Expires: 08/25/2024 [facility] Comment on above: Expected: 08/25/2023, Expires: Start: 07-31-2023 Influenza vaccination [facility] Start: 06-12-2023 End: 06-12-2023 Patient encounter procedure 06/12/2023 Office Visit Transplant Surgery Steve Munoz MBBS [address] [place] [address] [facility] Trans[facility] Start: 03-11-2023 End: 03-11-2023 Telemedicine consultation with patient 03/11/2023 Telemedicine Urology Ryan Yepez MD [address] [facility] [address] [place] [address] [facility] Start: 01-16-2023 End: 01-16-2023 Patient encounter procedure 01/16/2023 Office Visit Transplant Surgery [facility] Transplant [facility] Start: 10-31-2022 End: 10-31-2022 Patient encounter procedure 10/31/2022 Office Visit Transplant Surgery Steve Munoz MBBS [address] [place] [address] [facility] Trans[facility] Start: 09-10-2022 End: 09-10-2023 PSA screening PSA, SCREENING Lab Routine BPH with obstruction/lower urinary tract symptoms Encounter for screening for malignant neoplasm of prostate Expected: 09/10/2022 (Approximate), Expires: 09/10/2023 [facility] Comment on above: Expected: 09/10/2022 (Approximate), Expi res: 09/10/2023 Start: 08-11-2022 End: 08-11-2022 Patient encounter procedure 08/11/2022 Office Visit Urology Ryan Yepez MD [address] [facility] [address] [place] [address] [facility] Start: 07-31-2022 Influenza vaccination [facility] Start: 07-07-2022 End: 07-07-2022 Patient encounter procedure 07/07/2022 Office Visit Urology Ryan Yepez MD [address] [facility] [address] [place] [address] [facility] Start: 07-07-2022 End: 07-07-2023 FLUORO IMAGING FOR UROLOGY [facility] Comment on above: Expected: 07/07/2022, Expires: 3 1 Occurrences starti ng 07/07/2022 until 07/07/2022 Start: 06-27-2022 End: 06-27-2022 Patient encounter procedure 06/27/2022 Office Visit Urology Ryan Yepez MD [address] [facility] [address] [place] [phone] [facility] Start: 06-27-2022 End: 06-27-2023 Basic metabolic 2000 panel - Serum or Plasma BASIC METABOLIC PANEL Lab Routine Other hydronephrosis Expected: 06/27/2022, Expires: 06/27/2023 [facility] Comment on above: Expected: 06/27/2022, Expires: 3 Start: 06-27-2022 End: 06-27-2022 Patient encounter procedure 06/27/2022 Appointment Computerized Tomography Scan Ryan Yepez MD [address] [facility] [address] [place] [address] Department of Radiology Start: 06-15-2022 End: 05-16-2023 CT Abdomen and Pelvis WO contrast CT ABDOMEN/PELVIS WITHOUT CONTRAST Imaging Routine FAYE (acute kidney injury) Expected: 06/15/2022 (Approximate), Expires: 05/16/2023 [facility] Work Phone: Comment on above: Expected: 06/15/2022 (Approximate), Expi res: 05/16/2023 Start: 06-12-2022 End: 06-12-2022 Patient encounter procedure 06/12/2022 Office Visit Transplant Surgery Steve Munoz MBBS [address] [place] [address] [facility] Start: 06-11-2022 End: 06-11-2023 BK VIRUS DNA QN, PCR, PLASMA BK VIRUS DNA QN, PCR, PLASMA Lab Routine Kidney replaced by transplant Liver replaced by transplant Abnormal blood chemistry Expected: 06/11/2022, Expires: 06/11/2023 [facility] Comment on above: Expected: 06/11/2022, Expires: Start: 06-04-2022 End: 06-04-2022 Patient encounter procedure 06/04/2022 Office Visit [facility] Start: 10-18-2021 End: 10-18-2021 Patient encounter procedure 10/18/2021 Office Visit Transplant Surgery Steve Munoz MBBS [address] [place] [address] [facility] Start: 07-31-2021 Influenza vaccination INFLUENZA VACCINE (#1) [facility] Start: 07-26-2021 End: 07-26-2021 Patient encounter procedure 07/26/2021 Office Visit Transplant Surgery [facility] Start: 2021 Prostate specific antigen measurement [facility] Start: 2021 Screening for malignant neoplasm of lung LUNG CANCER SCREENING [facility] Start: 2021 Zoster vaccine hzv live for subcutaneous use ZOSTER (SHINGLES) VACCINE (1 of 2) [facility] Start: 09-20-2020 Colonoscopy COLORECTAL CANCER SCREENING DISCUSSION [facility] Start: 09-20-2020 Screening for malignant neoplasm of colon [facility] Start: 07-31-2019 Influenza vaccination Flu vaccine (#1) [place], [place] Start: 05-22-2019 Annual Wellness Visit (AWV) Annual Wellness Visit (AWV) [place], [place] Start: 04-18-2019 End: 10-19-2019 Ultrasonography of abdomen US ABDOMEN RUQ/LIVER/GB Routine Cirrhosis of liver without ascites, unspecified hepatic cirrhosis type Expected: 04/18/2019 (Approximate), Expires: 10/19/2019 [facility] Work Phone: Comment on above: Expected: 04/18/2019 (Approximate), Expi res: 10/19/2019 Start: 01-25-2019 End: 01-25-2019 Ambulatory 01/25/2019 Office Visit Gastroenterology Christin Elizabeth, THEATER TECHNICIAN-TUCKPOINTER CLEANER CAULKER [address] [place] [address] Division of Gastroenterology and Hepatology [facility] Start: 11-19-2018 End: 11-19-2018 Ambulatory 11/19/2018 Appointment [facility] Start: 11-19-2018 End: 11-19-2018 Ambulatory [facility] Start: 10-19-2018 End: 10-19-2018 Ambulatory Ultrasound Jakob Start: 10-12-2018 End: 10-12-2019 Hemoglobin A1c/Hemoglobin.total mass fraction (Bld) HEMOGLOBIN A1C Routine Alcoholic cirrhosis, unspecified whether ascites present Pre-transplant evaluation for liver transplant Expected: 10/12/2018, Expires: 10/12/2019 [facility] Work Phone: Comment on above: Expected: 10/12/2018, Expires: 9 Start: 10-12-2018 End: 10-12-2019 TYPE AND SCREEN - NOT FOR TRANSFUSION TYPE AND SCREEN - NOT FOR TRANSFUSION Routine Alcoholic cirrhosis, unspecified whether ascites present Pre-transplant evaluation for liver transplant Expected: 10/12/2018, Expires: 10/12/2019 [facility] Work Phone: Comment on above: Expected: 10/12/2018, Expires: 9 Start: 07-31-2018 Influenza vaccination INFLUENZA VACCINE (#1) [facility] Work Phone: Start: 2011 Fasting lipid profile LIPID SCREENING [facility] Work Phone: Start: 2011 Lipid screen Lipid screen [place], [place] Start: 1990 DTaP/Tdap/Td vaccine (1 - Tdap) DTaP/Tdap/Td vaccine (1 - Tdap) [place], [place] Start: 1990 Hepatitis B vaccination HEP B VACCINE (1 of 3 - 19+ 3-dose series) [facility] Start: 1990 Hepatitis B Vaccine (1 of 3 - Risk Recombivax 3-dose series) Hepatitis B Vaccine (1 of 3 - Risk Recombivax 3-dose series) [place], [place] Start: 1990 Third diphtheria, tetanus and acellular pertussis (DTaP) vaccination [facility] Start: 1990 Zoster vaccine hzv live for subcutaneous use ZOSTER (SHINGLES) VACCINE (1 of 2) [facility] Start: 1990 [facility] Start: 1989 Tetanus vaccination TETANUS [facility] Start: 1986 HIV screen HIV screen [place], [place] Start: 02-17-1984 HIV screening HIV SCREENING DISCUSSION [facility] Work Phone: Start: 1983 COVID-19 VACCINE (1) COVID-19 VACCINE (1) [facility] Start: 1982 DTaP/Tdap/Td vaccine (1 - Tdap) DTaP/Tdap/Td vaccine (1 - Tdap) [place], [place] Start: 1977 Pneumococcal 0-64 years Vaccine (1 of 3 - PCV13) Pneumococcal 0-64 years Vaccine (1 of 3 - PCV13) [place] Start: 1977 PNEUMOCOCCAL VACCINE SERIES (1 - PCV) PNEUMOCOCCAL VACCINE SERIES (1 - PCV) [facility] Start: 1977 PNEUMOCOCCAL VACCINE SERIES (1 of 2 - PCV) PNEUMOCOCCAL VACCINE SERIES (1 of 2 - PCV) [facility] Start: 1977 [facility] Start: 02-17-1976 COVID-19 VACCINE (#1) COVID-19 VACCINE (#1) [facility] Start: 02-17-1976 [facility] Start: 1971 COVID-19 VACCINE (#1) COVID-19 VACCINE (#1) [facility] Start: 1971 Hepatitis B vaccination HEP B VACCINE (1 of 3 - 3-dose series) [facility] Start: 1971 Medicare Annual Wellness (AWV) Medicare Annual Wellness (AWV) [facility] Start: 1971 Screening for malignant neoplasm of colon [facility] Start: 1971 Tetanus vaccination [facility] BK VIRUS DNA QN, PCR , PLASMA BK VIRUS DNA QN, PCR, PLASMA Lab Routine Kidney replaced by transplant Liver replaced by transplant Abnormal blood chemistry 06/12/2022 3:38 PM EDT [facility] CALCULI, URINARY (KIDNEY STONE) CALCULI, URINARY (KIDNEY STONE) Fluids Routine 05/19/2022 8:16 AM EDT [facility] Work Phone: CANNABINOIDS, QUANT (URINE)THC CONFIRMATION CANNABINOIDS, QUANT (URINE)THC CONFIRMATION Routine Alcoholic cirrhosis, unspecified whether ascites present ESRD (end stage renal disease) on dialysis Pre-transplant evaluation for liver transplant 10/12/2018 12:57 PM EST [facility] Work Phone: End: 09-10-2024 CHEM 6 (LYTES, BUN CREA) [facility] EBV VCA IGG AB EBV VCA IGG AB R outine Alcoholic cirrhosis, unspecified whether ascites present ESRD (end stage renal disease) on dialysis Pre-transplant evaluation for liver transplant 10/12/2018 12:57 PM [facility] Work Phone: Fungus identified in Unspecified specimen by Culture [facility] HLA TYPING (SOLID ORGAN) HLA TYPING (SOLID ORGAN) Routine Alcoholic cirrhosis, unspecified whether ascites present ESRD (end stage renal disease) on dialysis Pre-transplant evaluation for liver transplant 10/12/2018 12:57 PM [facility] Work Phone: HSV 1 AND 2 IGG ANTIBODY HSV 1 AND 2 IGG ANTIBODY Routine Alcoholic cirrhosis, unspecified whether ascites present ESRD (end stage renal disease) on dialysis Pre-transplant evaluation for liver transplant 10/12/2018 12:57 PM [facility] Work Phone: 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 specific culture [facility] PLACEMENT NEPHROSTOM Y CATHETER PERCUTANEOUS W/ IMAGE GUIDANCE PLACEMENT NEPHROSTOMY CATHETER PERCUTANEOUS W/ IMAGE GUIDANCE Imaging Routine Hydronephrosis due to obstruction of ureteral orifice FAYE (acute kidney injury) 05/17/2022 11:08 AM EDT [facility] UT POST VOID RESIDUAL UT POST VO ID RESIDUAL UT - OFFICE PERFORMED Routine BPH with obstruction/lower urinary tract symptoms Ordered: 09/10/2022 [facility] Comment on above: Ordered: 09/10/2022 PTH INTACT PTH INTACT Routi ne Alcoholic cirrhosis, unspecified whether ascites present ESRD (end stage renal disease) on dialysis Pre-transplant evaluation for liver transplant 10/12/2018 12:57 PM [facility] Work Phone: RUBEOLA IGG AB (IMMU NE STATUS) RUBEOLA IGG AB (IMMUNE STATUS) Routine Alcoholic cirrhosis, unspecified whether ascites present ESRD (end stage renal disease) on dialysis Pre-transplant evaluation for liver transplant 10/12/2018 12:57 PM [facility] Work Phone: End: 01-16-2024 Standard ECG ECG ECG Routine One Time for 1 Occurrences starting 01/16/2024 until 01/16/2024 [facility] Comment on above: One Time for 1 Occurrences starting 12/31 until 01/16/2024 End: 09-10-2024 TACROLIMUS LEVEL, TROUGH (PRE DRUG LEVEL) [facility] VARICELLA IGG AB (IM M STATUS) VARICELLA IGG AB (IMM STATUS) Routine Alcoholic cirrhosis, unspecified whether ascites present ESRD (end stage renal disease) on dialysis Pre-transplant evaluation for liver transplant 10/12/2018 12:57 PM EST [facility] Work Phone: Immunizations Immunization Date Immunization Notes Care Provider Fa cility 11-03-2023 influenza virus vacc ine, unspecified formulation Generic Provider [facility] 11-03-2023 Moderna SARS-CoV-2 50mcg/0.5mL Booster Generic Provider [facility] Payers Date Payer Category Payer Unknown [id number] 2019 Unknown [employer] [id number] 2019-Present [id number] 2018 Medicaid MEDICAID [facility] DEPT OF JOB xxxxxxxxxxxx 2018-Present [phone] [address] [place] [address] xxxxxxxxxxxx [id number] [id number] 2018 Medicaid MEDICAID MEDICAI D [id number] 2018-Present [address] [place] [address] [id number] .[id number] 2018 Medicaid [id number]. 1.13.172.2.7.3 .[id number] 2018 Medicare MEDICARE MEDICAR E PART A AND B xxxxxxxxxxx 2018-Present [phone] [address] [address] [place] [address] xxxxxxxxxxx [id number] .[id number] 2018 Medicare [id number] 2018 Medicare MEDICARE MEDICAR E A AND B [id number] 2018-Present [address] [place] [address] [id number] [id number] .606873.315 2018 Medicare [id number]. 1.13.172.2.7.3 .955560.315 1971 Unknown [id number] 2.16.840.1.264778.3.579.2.173 1971 Unknown [id number] 2.16.840.1.582899.3.579.2.173 1971 Unknown [id number] 2.16.840.1.161351.3.579.2.173 1971 Unknown [id number] 2.16.840.1.410130.3.579.2.173 1971 Unknown [id number] 2.16.840.1.242239.3.579.2.173 1971 Unknown [id number] 2.16.840.1.921017.3.579.2.173 1971 Unknown [id number] 2.16.840.1.868366.3.579.2.173 1971 Unknown [id number] 2.16.840.1.993820.3.579.2.173 1971 Unknown [id number] 2.16.840.1.050824.3.579.2.647 1971 Unknown [id number] 2.16.840.1.764223.3.579.2.593 1971 Unknown [id number] 2.16.840.1.981523.3.579.2.593 1971 Unknown [id number] 2.16.840.1.313039.3.579.2.593 1971 Unknown [id number] 2.16.840.1.345554.3.579.2.593 1971 Unknown [id number] 2.16.840.1.759727.3.579.2.593 1971 Unknown [id number] 2.16.840.1.459147.3.579.2.593 1971 Unknown [id number] 2.16.840.1.241093.3.579.2.593 1971 Unknown [id number] 2.16.840.1.123717.3.579.2.593 1971 Unknown [id number] 2.16.840.1.701572.3.579.2.593 1971 Unknown [id number] 2.16.840.1.842808.3.579.2.593 1971 Unknown [id number] 2.16.840.1.665238.3.579.2.593 1971 Unknown [id number] 2.16.840.1.205745.3.579.2.593 1971 Unknown [id number] 2.16.840.1.390092.3.579.2.593 1971 Unknown [id number] 2.16.840.1.556054.3.579.2.593 1971 Unknown [id number] 2.16.840.1.632950.3.579.2.593 1971 Unknown [id number] 2.16.840.1.926993.3.579.2.125 9 1971 Unknown [id number] 2.16.840.1.361499.3.579.2.125 9 1971 Unknown [id number] 2.16.840.1.581016.3.579.2.125 9 1971 Unknown [id number] 2.16.840.1.471199.3.579.2.125 9 1971 Unknown [id number] 2.16.840.1.398185.3.579.2.125 9 1971 Unknown [id number] 2.16.840.1.063718.3.579.2.125 9 1971 Unknown [id number] 2.16.840.1.987483.3.579.2.125 9 1971 Unknown [id number] 2.16.840.1.063097.3.579.2.125 9 1971 Unknown [id number] 2.16.840.1.279871.3.579.2.125 9 1971 Unknown [id number] 2.16.840.1.087887.3.579.2.125 9 1971 Unknown [id number] 2.16.840.1.949094.3.579.2.125 9 1971 Unknown [id number] 2.16.840.1.675800.3.579.2.594 1971 Unknown [id number] 2.16.840.1.319462.3.579.2.594 1971 Unknown [id number] 2.16.840.1.741265.3.579.2.594 1971 Unknown [id number] 2.16.840.1.513460.3.579.2.594 1971 Unknown [id number] 2.16.840.1.750758.3.579.2.594 1971 Unknown [id number] 2.16.840.1.953421.3.579.2.594 1971 Unknown [id number] 2.16.840.1.025158.3.579.2.594 1971 Unknown [id number] 2.16.840.1.095806.3.579.2.594 1971 Unknown [id number] 2.16.840.1.728068.3.579.2.594 1971 Unknown [id number] 2.16.840.1.649641.3.579.2.594 1971 Unknown [id number] 2.16.840.1.271640.3.579.2.594 1971 Unknown [id number] 2.16.840.1.402067.3.579.2.594 1959 Medicaid [id number] 1959 Medicare [id number] Social History Date Type Detail Facility Start: 07-19-2018 End: 10-19-2018 Tobacco smoking status NHIS Former smoker [facility] Start: 07-19-1988 End: 05-14-2018 History of tobacco use Current smoker [facility] Work Phone: Start: 07-19-1988 End: 05-14-2018 History of tobacco use Cigarette Smoker [facility] Work Phone: Start: 10-19-2018 End: 02-26-2024 Cigarettes smoked current (pack per day) - Reported [facility] End: 07-19-1994 History of tobacco use Chews Tobacco [facility] Work Phone: Start: 1970 Sex Assigned At Not on file [facility] Work Phone: Start: 11-03-2018 Alcohol intake Current non-drinker of alcohol (finding) [place] Start: 06-22-2018 Alcohol Comment Hx of alcoholism [place] Start: 11-03-2018 End: 02-26-2024 Alcohol intake No [facility] Start: 07-19-2018 Tobacco use and exposure Former user [facility] Start: 09-06-2020 End: 02-26-2024 Alcohol intake Ex-drinker (finding) [facility] Start: 07-19-2018 Alcohol Comment stopped 05/14/2018 [facility] Start: 05-05-2022 End: 01-16-2023 Exposure to SARS-CoV-2 (event) Not sure [facility] Start: 07-07-2018 Gender identity Identifies as male gender (finding) [facility] Start: 01-16-2022 Sexual orientation Heterosexual (finding) [facility] Start: 11-03-2023 Tobacco use and exposure [...] [facility] Start: 11-02-2023 Alcohol Comment Former [facility] Medical Equipment Procedure Code Equipment Code Equipment Original Text Equipment Identifier Dates [id number] Start: 05-23-2020 [id number] Start: 04-12-2020 [id number], [id number] [facility] Start: 05-17-2022 Comment on above: Description: Implant time-out completed by intra-procedural staff including this RN, electrical technician, and performing physician. The following was [...] Nico Gutiérrez - 03/02/2024 8:14 AM Lele Moran 03/02/2024 8:14 AM Blanca Mckeon RN - [...] up del of broth Contact Info: Specialty ([place]) [phone] [facility] [phone] [facility] [phone] Raheem [phone] Bedside Delivery ([facility]) [phone] [facility] OP RX OUTREACH ADVANCED: Call Information: Date and Time of Contact: 03/02/2024 3:49 PM Method of Contact: By Phone Contact Type: Prescriptions Contactor: [facility] OP Contactee: Patient Contact Outcome: Left message and Follow-up Shipping/Pickup: Medication Name: Myco 360mg and Prograf 0.2mg Contact Info: Specialty (Yanci) [phone] [facility] [phone] [facility] [phone] Raheem [phone] Bedside Delivery ([facility]) [phone] [facility] OP RX OUTREACH ADVANCED: Call Information: Date and Time of Contact: 03/02/2024 4:08 PM Method of Contact: By Phone Contact Type: Prescriptions Contactor: [facility] OP Contactee: Patient Shipping/Pickup: Medicare B Refill?: No Medication Name: Myco 360 / prograf 0.2 Delivery Method: Ship Delivery Location: Home Signature Required: No Receive/Pickup Date: 03/03/2024 Shipping Address: [address] [place] [address] [address] Contact Info: Specialty (Yanci) [phone] Jakob [phone] [facility] [phone] Raheem [phone] Bedside Delivery ([facility]) [phone] documented in this encounter [facility] 02-26-2024 History of Present illness Narrative [...] presents to the [facility] Clinic at the [facility] on 02/26/2024 for initial evaluation of [...] Surgeon: Jyoti Bryant MD, PhD; Location: [facility] MAIN OR PLACEMENT NEPHROSTOMY CATHETER PERCUTANEOUS W/ IMAGE GUIDANCE 05/17/2022 Surgeon: Enzo Heart DO; Location: [facility] INTERVENTIONAL RADIOLOGY (VIR) LIVER TRANSPLANT, ORTHOTOPIC N/A 04/12/2020 Laterality: N/A; Surgeon: LU Palma; Location: [facility] SAME DAY SURGERY MAIN OR KIDNEY TRANSPLANT W/O [place] NEPHRECTOMY N/A 04/12/2020 Laterality: N/A; Surgeon: LU Palma; Location: [facility] SAME DAY SURGERY MAIN OR [...] qd Antithrombotic: no Statin: no ICD: NA ENGINEERING PROJECT MANAGER: NA CV Test results: ECHOCARDIOGRAM 01/18/2024 (Final) Interpretation Summary Left Ventricle: Chamber size is normal. Increased wall thickness. Concentric hypertrophy. Normal global systolic function. Regional wall motion is normal. Ejection fraction is normal (55 - 60%). Right Ventricle: Chamber size is normal. Systolic function is low normal. No hemodynamically significnat valve disease. Moderate pericardial effusion. There is no evidence of tamponade. [facility] (01/20/24) Hemodynamic Summary: Baseline Hemodynamics Systemic BP [...] will be BP control. Candie Almaguer M.D. block cutter Advanced Heart Failure Program Division of Cardiovascular Medicine [facility] [email or web address] [phone] fax [phone] documented in this encounter [facility] 02-26-2024 Instructions Marsha Mckeon RN - 02/26/2024 9:30 AM EDT The following instructions were given today: Labs today Follow up with Dr. Almaguer as needed. Your after visit summary (AVS) is viewable in [facility] My Chart. Call RN if you have cardiac questions/concerns M-F 8 to 4:30 ; office # [phone], option 6, then option 2. Guidelines for home management: 1. Continue to monitor weight first thing each morning. 2. Report to the CHF CLINIC ([phone]) any significant weight change. Remember that weight [...] to have labs/tests run outside of the [facility] and you do not hear from us 1-2 days after they are performed, you must call us to ensure we received the results. Office fax # [phone]. No news does not necessarily mean that your tests are normal, it could mean we did not get the results. For questions/updates: please provide your name with spelling, date of and question or update All calls are prioritized and responses researched, if possible, prior to calls being returned. Call Scheduling for any appointment/procedure verification or changes [phone], option 7 or [facility] Heart Schedulers at [phone], option 1. documented in this encounter [facility] 01-23-2024 Nurse Note Jakob wrap & [...] to transport home on home oxygen supply. [facility] 01-23-2024 Miscellaneous Notes Jakob wrap & kerlix removed to E per surgical team instructions/note. Incisional site dressing [...] (Acute Pain): verbalization of pain descriptors George Feliz Jensen ([id number]) PRE OPERATIVE DIAGNOSIS High output congestive heart failure [I50.83] POST OPERATIVE DIAGNOSIS Post-Op Diagnosis Codes: * High output congestive heart failure [I50.83] PROCEDURE PERFORMED Procedure(s) (LRB): LIGATION ANGIOACCESS AVF (Left) Resection of large aneurysmic vein PRIMARY CLOSURE Yes INTRAOPERATIVE FINDINGS No significant abnormalities SURGEON Surgeons and Role: * Jyoti Bryant MD, PhD - Primary ANESTHESIOLOGIST Anesthesiologist: Celena Tiwari MD; Kehinde Gutierrez MD DELIVERER FOOD: Raheem Jasso APRN-DELIVERER FOOD Director Of Sustainability Assisting: Mini Khan MD SURGICAL STAFF Admitting Interviewer: Zoila Alexander RN Relief Admitting Interviewer: Marimar Saravia RN Relief Scrub: Briseyda Self [...] patent, patient breathing easily. Report received from residential treatment staff and report received from anesthesiology. Pt arrived [...] aneurysmal vein. ANESTHESIA: Axillary block. SURGEON(S): Jyoti rByant MD, PHD FILTER BED PLACER: Mynor Fall MD ESTIMATED BLOOD LOSS: Minimal. [...] Jyoti Bryant MD, PHD ATTENDING SHANNON/Constanza JOB: [id number] DOC: [id number] Patient has been asleep this shift. He [...] overnight coverage, Jasper Gastelum MD, via pager #[phone] Pt- George Styles. Sarah 1082. TM1. Was wondering if he can have his Melatonin order increased to 6mg. Per pt, he usually takes 8mg at home. -SAMI Duffy #[phone] Tati Charles RN Internal Medicine Daily Progress Note Patient: George Styles, 1970, [id number] Physician: Arelis Mera MD, PGY3, Pager #[phone], TM1 service Assessment/Plan: George Styles is a [...] home amlodipine 5mg CAD: non-obstructive CAD on [facility] 2018. - continue home aspirin 81mg daily, [...] Mera MD Mr. Styles was admitted to [address] [place] [address]. On admission to [facility], from outside facility a dual RN initial assessment of skin condition was performed by Izzy Gutierrez RN and Leroy Singleton RN. Skin Assessment: Skin within defined limits:Yes Jose Score: 20 Wound Vision Reprographics Technician images obtained: No LDA Added: No Based [...] station when available. documented in this encounter [facility] 01-23-2024 Nurse Note Home Oxygen Qualification [...] at 4L of oxygen is also required.) [facility] 01-23-2024 History of Present illness Narrative [...] mg Oral Daily Kelvin Pacheco MD, MBBS associate professor of physics Transplant nephrology Surgery Post-Op Check Note George [...] monitor Leonel Harris DO General Surgery Pager [phone] CM went to bedside to talk with patient. Patient states he has home oxygen through [employer]. He uses 2.5 LNC around the clock. Patient states his brother will bring a tank for discharge. Anticipate patient will discharge tomorrow AM. Brother updated. Girish Oro RN, BSN Clinical Straightening Press Operator Helper Please note that I am a float bilingual case manager and may not cover the same service every day. Please call the main Case Management office at [phone] for up-to-date coverage. Verified patients identity using [...] Daily Progress Note Patient: George Styles, 1970, [id number] Physician: Yury Ozuna MD, PGY1, Pager #[phone], TM1 service Assessment/Plan: George Styles is a 53 y.o. 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 Acute Hypoxic Respiratory Insufficiency - resolved High Output Cardiac Failure 01/01 Fistula Patient previously required 3-4L NC only [...] by transplant surgery on 01/22 (NPO at in, updated type & screen) S/p Liver-Kidney Transplant [...] home amlodipine 5mg CAD: non-obstructive CAD on [facility] 2018. - continue home aspirin 81mg daily, [...] with the Nutrition plan outlined in the Area Director s note. DVT prophylaxis with lovenox [...] in resident note. Kelvin Pacheco MD, MBBS associate professor of physics Transplant nephrology Patient seen and examined at [...] Oral BID AC Kelvin Pacheco MD, JOSHBS associate professor of physics Transplant nephrology Images from the original note were not included. Internal Medicine Daily Progress Note Patient: George Styles, 1970, [id number] Physician: Yury Ozuna MD, PGY1, Pager #[phone], TM1 service Assessment/Plan: George Styles is a 53 y.o. 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 Acute Hypoxic Respiratory Insufficiency - resolved GARCIA, [...] home amlodipine 5mg CAD: non-obstructive CAD on [facility] 2018. - continue home aspirin 81mg daily, [...] with the Nutrition plan outlined in the Area Director s note. DVT prophylaxis with lovenox [...] room air (01/20/24805) Flow (L/min): 2 (01/19/24 09) Gen: NAD HENT: NCAT, EOMI, MMM Cardio: [...] Medication Reconciliation Note Patient: George Styles Room[facility]: [facility]/A The patient's allergies have been reviewed with [...] Provider: Zuly Bruno NP Pharmacy: [facility] Other Comments: Patient reported his Last Home Dose of mycophenolate and tacrolimus was on 01/15/24 at 0700. Medications that need removed from Outside Medication Reconciliation list: Please remove all medications. Please feel free to contact me with any further questions. Name: Heidy Chatman Phone #: [phone] Date/Time: 01/19/2024 12:08 PM Time Spent: 15 minutes Associated attestation - Fidelina Alarcon RPH - 01/19/2024 12:41 PM EST Department of Pharmacy Admission Medication Reconciliation Note Patient: George Styles Room/Bed: 1082/A I have reviewed the home medication list with the Wood Handler. The home medication list status is: complete. All changes to the home medication list have been updated in [facility]. Updated [facility] Med List: Prior to Admission Medications Prescriptions [...] with any further questions. Name: Fidelina Alarcon, [facility] Phone #: [phone] Date/Time: 01/19/2024 12:41 PM Internal Medicine Daily Progress Note Patient: George Styles, 1970, [id number] Physician: Yury Ozuna MD, PGY1, Pager #[phone], BS6 service Assessment/Plan: Acute Hypoxic Respiratory Insufficiency GARCIA, [...] home amlodipine 5mg CAD: non-obstructive CAD on [facility] 2018. - continue home aspirin 81mg daily, [...] with the Nutrition plan outlined in the Area Director s note. DVT prophylaxis with lovenox [...] mg Oral Daily Kelvin Pacheco MD, MBBS associate professor of physics Transplant nephrology Internal Medicine Daily Progress Note Patient: George Styles, 1970, [id number] Physician: Yury Ozuna MD, PGY1, Pager #[phone], TM1 service Assessment/Plan: Updates: - continued diuresis [...] home amlodipine 5mg CAD: non-obstructive CAD on [facility] 2018. - continue home aspirin 81mg daily, [...] with the Nutrition plan outlined in the Area Director s note. DVT prophylaxis with lovenox [...] Ptt/Pt/Inr: 30.0/14.5/1.1 (01/18 315) Associated attestation - Tara, Kelvin Ortiz MD, LU - 01/18/2024 4:20 PM EST Patient seen and examined at bedside today during multidisciplinary rounds with medicine residents and pharmacy, charts reviewed, laboratory parameters reviewed. Agree with plan of care as mentioned in resident note. Kelvin Pacheco MD, MBBS associate professor of physics Transplant nephrology Pt known to systems integration manager from previous admissions. Provided emotional and spiritual support. Patient shared about: family support, medical course Energy Management Specialist provided: - Supportive presence - Active listening - Validation of feelings/emotions Patient encouraged to request a systems integration manager as needed. Chaplains are available in-house 24 hours a day and 7 days a week. For urgent matters in [facility], please page [phone]. If the request is not urgent, please enter a consult. Consults are responded to within 24 hours. Senior Staff Energy Management Specialist Angie Singh Mdiv, [facility] Kirk [phone] [email or web address] On-call TYLOR: otc clerk Raheem: 22/06 Pager ,[facility], and Brock Debbie Hernandez Pager [phone] 01/18/24 1342 Clinical Encounter Type Visited With Patient Visit Type Introduction Pastoral Time Spent 15 min Referral Other (See Comment) (rounding) Spiritual Assessment Emotional Observation Coping well;Anxiety Hope Observation Specific hope focus Support Observation By Family Interventions Provided Active listening;Supportive presence Facilitated Verbalization of feelings;Identifying support system;Identifying Sources of spiritual well-being Explored Expectations;Treatment decisions [place] Education [place] Service Available Yes Educated Patient Outcomes Patient [...] profile for any potential drug interaction. Name: Fidleina Alarcon RPH Phone #: [phone] Date/Time: 01/18/2024 9:56 AM Discharge Planning Patient [...] Yes Name and Contact information: Gian Styles ([phone]) Would you like to add additional adult [...] Care Team?: Yes Patient Care Team: Zuly Bruno, TUCKPOINTER CLEANER CAULKER as PCP - General Evan White, DO [...] oxygen?: Yes Oxygen Provider and Contact : [employer] Liter-Flow?: 20/01- Order for oxygen use?: unknown [...] patient on Anticoagulation? : No [id number] [place] [address] - [address] [facility] [address] [facility] [address] Hand I Blocker Does the patient or merchandising representative express financial concerns? : No Employed?: Disabled Coping/Stress Concerns about patient s coping and stress?: No Concerns about patient s caregiver s coping and stress?: No Values and Beliefs Cultural or religion practices that may impact discharge planning and/or [...] Plan 1. Identified self and role as Straightening Press Operator Helper. 2. Confirmed and updated demographics and treatment team. 3. Straightening Press Operator Helper will continue to follow with medical team for any other additional discharge needs. Kasandra DON RN [facility] [phone] *Please note I am float CM and work Thursday and Thursday every other week. Please call [phone] for assist in my absence. Internal Medicine Daily Progress Note Patient: George Styles, 1970, [id number] Physician: Yury Ozuna MD, PGY1, Pager #[phone], WQ5 service Assessment/Plan: Updates: - continue diuresis with [...] home amlodipine 5mg CAD: non-obstructive CAD on [facility] 2019. - continue home aspirin 81mg daily, [...] Finally, ordered 2D echo. Kevin Sage MD, SERA Agricultural Equipment Test Engineer of Clinical Medicine [facility] documented in this encounter [facility] 01-23-2024 Plan of care note Patient [...] Symptoms (Acute Pain): verbalization of pain descriptors [facility] 01-22-2024 Hospital Discharge instructions Arelis Mera [...] your doctor for further instructions. Please call [phone], Option 1 or [phone] to schedule your appointment with the Heart Failure [facility]. Arelis Mera MD - 01/22/2024 3:08 PM EST You can change your dressing 48 hours from the procedure The following attachments cannot be sent through Care Everywhere.Heart Failure: Avoiding Triggers (Bahraini)Heart Failure: Limiting Sodium (Bahraini)Pain and Pain Control ([facility]) (Bahraini)documented in this encounter [facility] 01-22-2024 Surgery Postoperative evaluation and management note George Styles ([id number]) PRE OPERATIVE DIAGNOSIS High output congestive heart failure [I50.83] POST OPERATIVE DIAGNOSIS Post-Op Diagnosis Codes: * High output congestive heart failure [I50.83] PROCEDURE PERFORMED Procedure(s) (LRB): LIGATION ANGIOACCESS AVF (Left) Resection of large aneurysmic vein PRIMARY CLOSURE Yes INTRAOPERATIVE FINDINGS No significant abnormalities SURGEON Surgeons and Role: * Jyoti Bryant MD, PhD - Primary ANESTHESIOLOGIST Anesthesiologist: Celena Tiwari MD; Kehinde Gutierrez MD DELIVERER FOOD: Raheem Jasso APRN-DELIVERER FOOD Director Of Sustainability Assisting: Mini Khan MD SURGICAL STAFF Admitting Interviewer: Zoila Alexander RN Relief Admitting Interviewer: Marimar Saravia RN Relief Scrub: Briseyda Self Scrub Person: Cinda Mai RN Resident Assisting: Leonel Harris DO Fellow: Miik Mcgowan MD, MBBS COMPLICATIONS None ESTIMATED BLOOD LOSS Minimal SPECIMENS No specimen sent * No specimens in log * Jyoti Bryant MD, PhD January 22, 2024 1:34 PM [facility] Work Phone: 01-22-2024 Nurse Note Arrived to PACU assisted by anesthesiology. Connected to monitors. Turned side to side, OR linens removed, repositioned. Airway patent, patient breathing easily. Report received from residential treatment staff and report received from anesthesiology. Pt arrived awake. VSS. Sats slightly low. Pulm rehab used. Sats currently 3lpm @ 93%. Pt states he uses CPAP nocturnally. A&Ox4. Nerve block left arm, elevated. [facility] 01-22-2024 Surgery Postoperative evaluation and [...] Axillary block. SURGEON(S): Jyoti Bryant MD, PHD FILTER BED PLACER: Mynor Fall MD ESTIMATED BLOOD LOSS: Minimal. [...] Jyoti Bryant MD, PHD ATTENDING SHANNON/Constanza JOB: [id number] DOC: [id number] [facility] 01-22-2024 Plan of care note Patient has [...] 1939 Plan Of Care Reviewed With: patient [facility] 01-20-2024 Consult note Associated Order (s): IP CONSULT TO SURGERY - TRANSPLANT (RENAL) Images from the original note were not included. TRANSPLANT SURGERY CONSULT NOTE: Consult: 01/20/2024, 4:03 PM Banquet Kitchen Supervisor: Starla Morris MD Reason for Consult: Requesting Dr Carson Bryant for AVF revision/closure given new onset high output heart failure George Styles is a 53 y.o. male CURRENT HOSPITALIZATION LOS: Admit Date: 01/16/2024 [facility] Hospital LOS: 4 days George Styles is [...] Laterality: N/A; Surgeon: LU Palma; Location: [facility] SAME DAY SURGERY MAIN OR KIDNEY TRANSPLANT W/O [place] NEPHRECTOMY N/A 04/12/2020 Laterality: N/A; Surgeon: LU Palma; Location: [facility] SAME DAY SURGERY MAIN OR [...] BID Timothy Joseph MD 20 mg at 02/21/24 0918 Gabapentin (NEURONTIN) capsule 400 mg 400 mg [...] solution 250 mL 250 mL Intravenous PRN Tiomthy Joseph MD Sulfamethoxazole-trimethoprim (BACTRIM DS) 800-160 MG [...] Daily Timothy Joseph MD 0.4 mg at 01/20/2418 Torsemide (DEMADEX) tablet 20 mg 20 mg [...] seen and staffed with Dr. Mcgowan fellow television operator Thank you, Starla Morris MD Associated attestation - Jyoti Bryant MD, PhD - 01/22/2024 10:54 AM EST IRomaine Bryant MD, PhD, have independently seen and examined the patient, reviewed the labs, discussed the patient with the fellow/resident and agree with the note. [facility] Work Phone: 01-20-2024 Consult note Associated Order (s): IP CONSULT TO SURGERY - TRANSPLANT (RENAL) Images from the original note were not included. TRANSPLANT SURGERY CONSULT NOTE: Consult: 01/20/2024, 4:03 PM Banquet Kitchen Supervisor: Starla Morris MD Reason for Consult: Requesting Dr Carson Bryant for AVF revision/closure given new onset high output heart failure George Styles is a 53 y.o. male CURRENT HOSPITALIZATION LOS: Admit Date: 01/16/2024 [facility] Hospital LOS: 4 days George Styles is [...] 05/17/2022 Surgeon: Enzo Heart DO; Location: [facility] INTERVENTIONAL RADIOLOGY (VIR) LIVER TRANSPLANT, ORTHOTOPIC N/A 04/12/2020 Laterality: N/A; Surgeon: LU Palma; Location: [facility] SAME DAY SURGERY MAIN OR KIDNEY TRANSPLANT W/O [place] NEPHRECTOMY N/A 04/12/2020 Laterality: N/A; Surgeon: LU [...] 40 mg 40 mg Subcutaneous Q24H Timothy Josehp MD 40 mg at 01/20/24917 faMOTIdine (PEPCID) [...] Consults/Procedures: Imaging/Radiological Studies: Labs-CBC: WBC/Hgb/Hct/Plts: 3.79/12.5/38.9/166 (01/20 06) Labs-Chem 7([facility] [...] seen and staffed with Dr. Mcgowan fellow television operator Thank you, Starla Morris MD Associated attestation - Jyoti Bryant MD, PhD - 01/22/2024 10:54 AM EST I. Jyoti Bryant MD, PhD, have independently seen and examined the patient, reviewed the labs, discussed the patient with the fellow/resident and agree with the note. Associated Order(s): IP CONSULT TO HEPATOBILIARY [facility] Main Hepatology Consult WebExchange --> IM Consult Serv [facility] --> OS Main Hepatology consult service Fellow [...] 05/17/2022 Surgeon: Enzo Heart DO; Location: [facility] INTERVENTIONAL RADIOLOGY (VIR) LIVER TRANSPLANT, ORTHOTOPIC N/A 04/12/2020 Laterality: N/A; Surgeon: LU Palma; Location: [facility] SAME DAY SURGERY MAIN OR KIDNEY TRANSPLANT W/[place] NEPHRECTOMY N/A 04/12/2020 Laterality: N/A; Surgeon: LU Palma; Location: [facility] SAME DAY SURGERY MAIN OR [...] (order for outpatient) Please SecureChat or Call ([phone]) for any questions. Await attending attestation for final recommendations. Hank Noel MD Division of Gastroenterology, Hepatology, and Nutrition Clinical Fellow, PGY-5 Pager: [phone] For urgent/stat calls or consults 5pm to 7am, please page the on-call GI fellow on QGenda. [facility]--> Internal Medicine--> Gastroenterology, Hepatology, & Nutrition--> 1st Call Janae Hatfield For urgent/stat calls or consults 7am to 5pm during the weekend, please page the on-call GI fellow on QGenda. [facility]--> Internal Medicine--> Gastroenterology, Hepatology, & Nutrition--> All Hep & East Wknd Cons For follow up questions regarding this patient 7am to 5pm during the weekday, contact the Hepatology consults fellow or CARLOS A on QGenda. [facility]--> Internal Medicine--> Gastroenterology, Hepatology, & Nutrition--> All Hep Consult OR Transplant Hep Consults CARLOS A Day [...] Estrada MD, MSc documented in this encounter [facility] 01-19-2024 Nurse Note 01/19/24 0900 Vitals [...] rest, 95-96% when talking/moving. Paulette Cordon, RN [facility] 01-19-2024 Nurse Note Paged overnight coverage, Jasper Gastelum MD, via pager #[phone] Pt- Mark. Sarah Styles 1082. TM1. Was wondering if he can have his Melatonin order increased to 6mg. Per pt, he usually takes 8mg at home. -SAMI Duffy #[phone] Tati Charles RN [facility] 01-18-2024 Consult note Associated Order (s): IP CONSULT TO HEPATOBILIARY [facility] Main Hepatology Consult WebExchange --> IM Consult Serv [facility] --> [facility] Main Hepatology consult service Fellow HEPATOLOGY INPATIENT [...] 05/17/2022 Surgeon: Enzo Heart DO; Location: [facility] INTERVENTIONAL RADIOLOGY (VIR) LIVER TRANSPLANT, ORTHOTOPIC N/A 04/12/2020 Laterality: N/A; Surgeon: LU Palma; Location: [facility] SAME DAY SURGERY MAIN OR KIDNEY TRANSPLANT W/[place] NEPHRECTOMY N/A 04/12/2020 Laterality: N/A; Surgeon: LU Palma; Location: [facility] SAME DAY SURGERY MAIN OR [...] (order for outpatient) Please SecureChat or Call ([phone]) for any questions. Await attending attestation for final recommendations. Hank Noel MD Division of Gastroenterology, Hepatology, and Nutrition Clinical Fellow, PGY-5 Pager: [phone] For urgent/stat calls or consults 5pm to 7am, please page the on-call GI fellow on Amorcyte. [facility]--> Internal Medicine--> Gastroenterology, Hepatology, & Nutrition--> 1st Call Fel Alysia For urgent/stat calls or consults 7am to 5pm during the weekend, please page the on-call GI fellow on Inaikaa. [facility]--> Internal Medicine--> Gastroenterology, Hepatology, & Nutrition--> All Hep & East Wknd Cons Fel Day For follow up questions regarding this patient 7am to 5pm during the weekday, contact the Hepatology consults fellow or CARLOS A on Inaikaa. [facility]--> Internal Medicine--> Gastroenterology, Hepatology, & [...] (order for outpatient) Michael Estrada MD, MSc [facility] Work Phone: 01-16-2024 Plan of care note Internal Medicine Daily Progress Note Patient: George Styles, 1970, [id number] Physician: Arelis Mera MD, PGY3, Pager #[phone], KH1 service Assessment/Plan: George Styles is a 53 [...] home amlodipine 5mg CAD: non-obstructive CAD on [facility] 2018. - continue home aspirin 81mg daily, [...] MD, on rounds. Signed, Arelis Mera MD [facility] 01-16-2024 Nurse Note Mr. Styles was admitted to [address] [place] [address]. On admission to 0, from outside facility a dual RN initial assessment of skin condition was performed by Izzy Gutierrez RN and Leroy Singleton RN. Skin Assessment: Skin within defined limits:Yes Jose Score: 20 Wound Vision Reprographics Technician images obtained: No LDA Added: No Based [...] room closest to nurses station when available. [facility] 01-16-2024 History and physical note Images from the original note were not included. Internal Medicine Admission History & Physical Patient: George Styles, 1970, [id number] Physician: Timothy Joseph MD, PGY1, Pager #[phone], TM 1 service Date of face to [...] Laterality: N/A; Surgeon: LU Palma; Location: [facility] SAME DAY SURGERY MAIN OR KIDNEY TRANSPLANT W/O [place] NEPHRECTOMY N/A 04/12/2020 Laterality: N/A; Surgeon: LU Palma; Location: [facility] SAME DAY SURGERY MAIN OR [...] itraconazole Fax results to: Dr. White - [phone] Transplant Neph - [phone] Gabapentin 400 MG capsule Sig: Take 1 capsule by mouth at bedtime. Itraconazole 10 MG/ML Solution Sig: Take 10 mL by mouth every 12 hours. Mycophenolate sodium (MYFORTIC) [address] franko MOFFETT Sig: Take 1 tablet by mouth every [...] erythema: Skin: No jaundice or rash Neuro: staff readiness officer 3-7, 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 Strength grossly [...] home amlodipine 5mg CAD: non-obstructive CAD on [facility] 2018. - continue home aspirin 81mg daily Gout: continue home allopurinol 200mg daily BPH: continue home flomax 0.4mg daily Complexity. Obesity Body mass index is 32.8 kg/m . - Follow with PCP for dietary and lifestyle modifications. Any conditions listed below are present on admission unless otherwise specified. . DVT prophylaxis with lovenox Disposition: admitted to [facility] Code status is Full Staffed with [...] Pierson, Luisa Steven, Renee Rivera, Daisha Max Hoop Bending Machine Operator: José Miguel Garnica All Txt: 04/13/2020 [...] results found for: CYCLOSPORIN , CYCLOSPORIN2 , [id number] , CYCLORAND No results found for: SIROLIMUS [...] request in chart. Kevin Sage MD Pager [phone] [facility] 01-16-2024 History and physical note Images from the original note were not included. Internal Medicine Admission History & Physical Patient: George Styles, 1970, [id number] Physician: Timothy Joseph MD, PGY1, Pager #[phone], TM 1 service Date of face to [...] DAY SURGERY MAIN OR KIDNEY TRANSPLANT W/O [place] NEPHRECTOMY N/A 04/12/2020 Laterality: N/A; Surgeon: LU [...] itraconazole Fax results to: Dr. White - [phone] Transplant Neph - [phone] Gabapentin 400 MG capsule Sig: Take 1 [...] erythema: Skin: No jaundice or rash Neuro: staff readiness officer 3-7, 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 Strength grossly [...] home amlodipine 5mg CAD: non-obstructive CAD on [facility] 2018. - continue home aspirin 81mg daily Gout: continue home allopurinol 200mg daily BPH: continue home flomax 0.4mg daily Complexity. Obesity Body mass index is 32.8 kg/m . - Follow with PCP for dietary and lifestyle modifications. Any conditions listed below are present on admission unless otherwise specified. . DVT prophylaxis with lovenox Disposition: admitted to [facility] Code status is Full Staffed with [...] Pierson, Luisa Steven, Renee Rivera, Daisha Max Hoop Bending Machine Operator: José Miguel Garnica All Txt: 04/13/2020 [...] results found for: CYCLOSPORIN , CYCLOSPORIN2 , [id number] , CYCLORAND No results found for: SIROLIMUS [...] request in chart. Kevin Sage MD Pager [phone] documented in this encounter [facility] 01-12-2024 History of Present illness Narrative [...] Prograf 0.2 MG Contact Info: Specialty ([place]) [phone] Jakob [phone] [facility] [phone] Raheem [phone] Bedside Delivery ([facility]) [phone] [facility] RX OUTREACH ADVANCED: Call Information: Date and Time of Contact: 01/25/2024 10:23 AM Method of Contact: By Phone Contact Type: Prescriptions Contactor: [facility] Contactee: Patient Contact Outcome: Left message (prograf myco) Contact Info: Specialty ([place]) [phone] Jakob [phone] [facility] [phone] [facility] [phone] Bedside Delivery ([facility]) [phone] documented in this encounter [facility] 01-12-2024 History of Present illness Narrative [...] Prograf 0.2 MG Contact Info: Specialty ([place]) [phone] [facility] [phone] [facility] [phone] [facility] [phone] Bedside Delivery ([facility]) [phone] [facility] RX OUTREACH ADVANCED: Call Information: Date and Time of Contact: 01/25/2024 10:23 AM Method of Contact: By Phone Contact Type: Prescriptions Contactor: [facility] Contactee: Patient Contact Outcome: Left message (prograf myco) Contact Info: Specialty ([place]) [phone] [facility] [phone] [facility] [phone] [facility] [phone] Bedside Delivery ([facility]) [phone] [facility] RX OUTREACH ADVANCED: Call Information: Date and Time of Contact: 01/27/2024 10:19 AM Method of Contact: By Phone Contact Type: Prescriptions Contactor: [facility] Contactee: Patient Contact Outcome: Left message (myco prograf) Contact Info: Specialty ([place]) [phone] [facility] [phone] [facility] [phone] [facility] [phone] Bedside Delivery ([facility]) [phone] documented in this encounter [facility] 01-12-2024 History of Present illness Narrative [...] Name: Prograf 0.2 MG Contact Info: Specialty ([place]) [phone] [facility] [phone] [facility] [phone] Raheem [phone] Bedside Delivery ([facility]) [phone] [facility] RX OUTREACH ADVANCED: Call Information: Date and Time of Contact: 01/25/2024 10:23 AM Method of Contact: By Phone Contact Type: Prescriptions Contactor: [facility] Contactee: Patient Contact Outcome: Left message (prograf myco) Contact Info: Specialty ([place]) [phone] [facility] [phone] [facility] [phone] [facility] [phone] Bedside Delivery ([facility]) [phone] [facility] RX OUTREACH ADVANCED: Call Information: Date and Time of Contact: 01/27/2024 10:19 AM Method of Contact: By Phone Contact Type: Prescriptions Contactor: [facility] Contactee: Patient Contact Outcome: Left message (myco prograf) Contact Info: Specialty ([place]) [phone] [facility] [phone] [facility] [phone] Raheem [phone] Bedside Delivery ([facility]) [phone] [facility] RX OUTREACH ADVANCED: Call Information: Date and Time of Contact: 02/01/2024 3:22 PM Contact Type: Prescriptions Contactor: [facility] Contactee: Patient Contact Outcome: Left message Shipping/Pickup: Medication Name: Mycophenolate 360mg and Prograf 0.2mg Pack Contact Info: Specialty ([place]) [phone] [facility] [phone] [facility] [phone] Raheem [phone] Bedside Delivery ([facility]) [phone] documented in this encounter [facility] 01-06-2024 History of Present illness Narrative [...] The neurologist wanted to send him to [facility] neurology but it is out of network [...] pt to see neurologist in [facility] Immunocompromised ([facility]) Hypertension ([facility]) No change in meds Check echo Relevant Orders Echocardiogram 2D complete Bilateral lower extremity edema Relevant Orders Echocardiogram 2D complete Shortness of breath Check ECHO Relevant Orders Echocardiogram 2D complete Other Visit Diagnoses 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) Atherosclerosis 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) documented in this encounter [facility] 10-06-2023 History of Present illness [...] Prograf 0.2 MG Contact Info: Specialty ([place]) [phone] Jakob [phone] [facility] [phone] Raheem [phone] Bedside Delivery ([facility]) [phone] [facility] RX OUTREACH ADVANCED: Call Information: Date and Time of Contact: 10/23/2023 2:00 PM Method of Contact: By Phone Contact Type: Prescriptions Contactor: [facility] Contactee: Patient Contact Outcome: Left message and Call back later Shipping/Pickup: Medication Name: Mycophenolate 360mg and Prograf 0.2mg Contact Info: Specialty ([place]) [phone] [facility] [phone] [facility] [phone] Raheem [phone] Bedside Delivery ([facility]) [phone] documented in this encounter [facility] 09-11-2023 Miscellaneous Notes Pt discharged home [...] the oxygen during the night. pt will order picker/assembler his oxygen from [employer], 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 This RN made [...] Patient seen ambulating in the velazquez with TERMINAL BLOCK ASSEMBLER. Patient was mildly short of breath on [...] & HR 114. Messaged Mainor Loomis, via GetAutoBids secure chat, Temp 100.8. His tylenol order [...] of time. 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 Episode of [...] Critical Care Medicine Message Mainor Loomis, via GetAutoBids secure chat, Good evening, just an FYI, [...] of time. 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 This morning, [...] [address] Loera here also (senior engineering specialist) Dr. Diaz aware of pt's increased oxygen [...] Guideline (CPG) Outcome: Ongoing Flowsheets (Taken 08/30/2023 104) Related Risk Factors (Infection, Risk/Actual): chronic illness/condition [...] regular sleep/rest pattern promoted Sent a secure FlazioIS chat to oRsi LUZ concerning patient's temp of 100.4 with [...] Medicine-Pediatrics, PGY-2 Mr. Styles was admitted to [address] [place] [address]. On admission to R[facility], from home a [...] when available. documented in this encounter [facility] 09-11-2023 History of Present illness Narrative Provided follow-up emotional and spiritual support. Patient shared about rosemary of discharge and looking forward to seeing family Energy Management Specialist provided: - Supportive presence - Active listening - Validation of feelings/emotions Patient encouraged to request a systems integration manager as needed. Chaplains are available in-house 24 hours a day and 7 days a week. For urgent matters in [facility], please page [phone]. If the request is not urgent, please enter a consult. Consults are responded to within 24 hours. Senior Staff Energy Management Specialist Angie Singh Mdiv, [facility] Kirk [phone] [email or web address] 22/06 On-call Kirk: [phone] 22/06 Pager ,[facility], and Brock 1500 Raheem Pager [phone] 09/11/23 1430 Clinical Encounter Type Visited With Patient Visit Type Follow-up Pastoral Time Spent 15 min Referral Other (See Comment) (rounding) Spiritual Assessment Spiritual Observation Spirituality helpful Emotional Observation Coping well Hope Observation Specific hope focus Support Observation By Family Interventions Provided Active listening;Supportive presence Facilitated Verbalization of feelings Explored Expectations Lining Feller Education Lining Feller Service Available Yes Educated Patient Plan of Care Continue Visiting PRN Images from the original note were not included. [facility] ([facility]) Note: Non-Verbal Med Rec [facility] received the following discharge prescription(s): Total cost is $0. I have reviewed the Discharge Rx Reconciliation Report. The discharge prescription(s) will be delivered to the patient on 09/11/2023. Dimitrios Gurrola RPh,PharmD Specialty ([place]) [phone] [facility] [phone] [facility] Bedside Delivery [phone] [facility] [phone] [facility] Bedside Delivery [phone] Raheem [phone] Raheem Bedside Delivery [phone] [place] [phone] [place] [phone] Internal Medicine Daily Progress Note Patient: George Styles, 1970, [id number] Physician: Evan Kelly MD, PGY-1, TM1 service Subjective/Interval History: Patient continues to require oxygen overnight for desaturations. With insurance limitations, only accepting agency to provide home oxygen backed out. After calling them to discuss, Lynn stated she would be willing to have patient drive to their facility to order picker/assembler supplies, however they close at 5pm. 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 - continue home aspirin 81mg daily, [...] 5.05 (H) 11/19/2018 Kevin Sage MD, SERA Agricultural Equipment Test Engineer of Clinical Medicine [facility] Images from the original note were not included. Final Discharge Planning and Transportation Final Discharge Planning Discharge Disposition: Home Services at Discharge: Outpatient clinical services (ie: lab draws, transfusions, injectables) (Home Oxygen by [employer]) Selected Continued Care - Admitted Since 08/28/2023 Durable Medical Equipment Coordination complete. Service Provider Selected Services Address Phone Fax Patient Preferred [employer] Durable Medical Equipment [address] [facility] [address] Internal Comment last updated by Lora Alexander RN 09/10/2023 1334 Correct contact information: [employer] [address] [place] [address] co founder and director- you do not need to call at discharge, I already notified the company. Addendum [phone] [facility] notified this CM they are out of patient's insurance area and will not be able to service this patient at time of discharge. Provider notified. Addendum [phone] Dr Kelly [facility] spoke to Lynn and she said they are willing to accept patient if the patient would drive to the [place] office and order picker/assembler the supplies. 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 Medication additions/changes: Lipitor on hold with itraconazole Items for clinic follow up: - Lipid follow up with atorvastatin on hold - Itraconazole level and, if needed, a dose adjustment Name: Matt Kramer RPh,PharmJenna Phone: [phone] Date/Time: 09/10/2023 11:33 AM This CM sent referral via [employer]eg[employer] for O2 concentrator to 4 agencies Start date today Timer set for 1330 [employer] [facility] Addendum 1332 One accepting company reserved in [place] [address] [place] [address] Lora Colón RN, MSN, CCM, CMCN Clinical Straightening Press Operator Helper- R10 Transplant #[phone] NUTRITION FOLLOW-UP Nutrition Plan of Care: 1. Continue current diet order. 2. No oral supplements warranted at this time. 3. Monitor for significant weight changes. Monitor GI, skin integrity. 4. Monitor and encourage po intakes with goal of average po being 75-100%. 5. office automation technician to follow. ___ Met with patient [...] time. Will continue to monitor. RHIANNON BirminghamR Pager:[phone] Transplant Infectious Disease (Team 3) Progress Note [...] sign off. Please Epic message or page [phone] with questions. 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 - continue home aspirin 81mg daily, [...] to follow. Please Epic message or page [phone] with questions. 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 - continue home aspirin 81mg daily, holding atorvastatin 20mg daily Gout: continue home allopurinol 200mg daily BPH: continue home flomax 0.4mg daily DVT PPX: SQH Code Status: Full Code Disposition: Pending clinical course. Anticipate eventual discharge home. Discussed with team and attending, Kevin Sage MD, on rounds. 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 - continue home aspirin 81mg daily, [...] 5.05 (H) 11/19/2018 Kevin Sage MD, SERA Agricultural Equipment Test Engineer of Clinical Medicine [facility] Transplant Infectious Disease [...] to follow. Please Epic message or page [phone] with questions. Ann Marie Haskins MD PGY-4, [...] he continues to improve. Please message via [employer] secure chat or page with any questions or concerns. Evan White DO Agricultural Equipment Test Engineer Division of Infectious Disease Transplant Infectious [...] to follow. Please Epic message or page [phone] with questions. Evan White DO Transplant Infectious Diseases Images from the original note were not included. Pulmonary/Critical Care Medicine Daily Progress Note Reason for Consultation: bronch for infectious workup Requesting Physician: Dr. Sage CURRENT HOSPITALIZATION: Admit Date: 08/28/2023 [facility] Hospital LOS: 9 days Impression 1. [...] and interpreted reviewed the radiographic [facility] 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 - continue home aspirin 81mg daily, [...] 5.05 (H) 11/19/2018 Kevin Sage MD, SERA Agricultural Equipment Test Engineer of Clinical Medicine [facility] Images from the original note were not included. Pulmonary/Critical Care Medicine Daily Progress Note Reason for Consultation: bronch for infectious workup Requesting Physician: Dr. Sage CURRENT HOSPITALIZATION: Admit Date: 08/28/2023 [facility] Hospital LOS: 8 days Impression 1. [...] and interpreted reviewed the radiographic data [facility] Acute Occupational Therapy Evaluation Prior to Admission [...] Assessment: Transfer Assessment: Sit to Stand Transfer [place] Level: Sit->Stand: independent Skilled Intervention/Details: Sit->Stand: x1 from EOB, x1 from toilet Stand to Sit Transfer [place] Level: Stand->Sit: independent Skilled Intervention/Details: Stand->Sit: x1 to toilet, x1 to EOB Functional Mobility: Functional Mobility [place] Level: Functional Mobility/Gait: independent Ambulation Distance (Feet): 20 Skilled Intervention/Details - Functional Mobility/Gait: pt performed functional mobility to/from RR w/ no overt LOB Outcome Score(s): CURRENT [facility] Daily Activity Inpatient Short Form Putting on/Taking Off Lower Body Clothin - A Little Assistance Bathin - A Little Assistance Toiletin - A Little Assistance Putting on/Taking Off Upper Body Clothin - No Assistance Groomin - No Assistance Eatin - No Assistance CURRENT [facility] Activity Raw Score: 21 CURRENT [facility] Activity Functional Limitation/Modifier: 32.79% Currently Impaired [...] Intact Mobility Assessment: Supine to Sit Mobility [place] Level: Supine->Sit: modified independence Bed Features/Set-up: Supine->Sit: Head of bed elevated Sit to Supine Mobility [place] Level: Sit->Supine: not tested Balance: Sitting Balance [...] environment. Transfer Assessment: Sit to Stand Transfer [place] Level: Sit->Stand: independent Skilled Intervention/Details: Sit->Stand: From EOB x 2 without difficulty. Stand to Sit Transfer [place] Level: Stand->Sit: independent Assistive Device: Stand->Sit: armed chair Skilled Rationale: Verbal cues, Positioning Gait/Functional Mobility: Gait Assessment [place] Level: Gait: stand-by assist Assistive Device: Gait: rollator Ambulation Distance (Feet): 400 Gait Deviations Identified: decreased grace, decreased gait speed Gait Skilled Rationale: verbal, upright posture, increase step length, increase foot clearance Skilled Intervention/Details - Gait: Reasonable foot clearnce without loss of balance but endorsing dyspnea as 6-7/10. Stairs: Stairs Assessment [place] Level: Stair Negotiation: not tested Outcome Score(s): CURRENT [facility] Basic Mobility Inpatient Short Form Turning over in bed: 4 - No Assistance Sitting/standing from chair: 4 - No Assistance Moving from lying on back to sittin - No Assistance Moving to and from bed to chair: 3 - A Little Assistance Walk in hospital room: 3 - A Little Assistance Climbing 3-5 steps with a railin - A Little Assistance CURRENT [facility] Mobility Raw Score: 21 CURRENT [facility] Mobility Functional Limitation/Modifier: 28.97% Currently Impaired [...] (Low) Clinical Decision Making: Low Time In: 25 Time Out: 1000 Total Visit Time: 35 [...] Daily Progress Note Patient: George Styles, 1970, [id number] Physician: Evan Kelly MD, PGY-1, TM1 service [...] 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 - continue home aspirin 81mg daily, [...] oz) I/O last 3 completed shifts: In: 7502.3 [P.O.:1036; I.V.:1048.7; IV Piggyback:157.7] Out: 1625 [Urine:1625] [...] 5.05 (H) 11/19/2018 Kevin Sage MD, SERA Agricultural Equipment Test Engineer of Clinical Medicine [facility] Transplant Infectious Disease [...] to follow. Please Epic message or page [phone] with questions. Evan White DO Transplant Infectious Diseases Images from the original note were not included. 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 - continue home aspirin 81mg daily, [...] P 450 system Kevin Sage MD, SERA Agricultural Equipment Test Engineer of Clinical Medicine [facility] ERT Note: ERT called [...] MD, PhD Internal Medicine and Pediatrics PGY-3 [facility] Brief plan of care update: Called to [...] MD, PhD Internal Medicine and Pediatrics PGY-3 [facility] Transplant Infectious Disease (Team 3) Progress Note [...] to follow. Please Epic message or page [phone] with questions. 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 - continue home aspirin 81mg daily, [...] completed shifts: In: 2089 [P.O.:2089] Out: 1674 [Urine:1675] No intake/output data recorded. 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 - continue home aspirin 81mg daily, [...] 5.05 (H) 11/19/2018 Kevin Sage MD, SERA Agricultural Equipment Test Engineer of Clinical Medicine [facility] Progression of Care [...] Lora Colón RN, MSN, CCM, CMCN Clinical Straightening Press Operator Helper- R10 Transplant #[phone] Made introductory visit with patient. Provided emotional and spiritual support. Patient shared about: - Source of [place]: Camping/Fishing/Family - Spirituality/Zoroastrian Affiliation: raised Jew - Family Support/history - Experience with illness/hospital course - Hopes for healing/future Energy Management Specialist provided: - Supportive presence - Active listening - Validation of feelings/emotions - Pledged prayer Patient encouraged to request a systems integration manager as needed. Chaplains are available in-house 24 hours a day and 7 days a week. For urgent matters in [facility], please page [phone]. If the request is not urgent, please enter a consult. Consults are responded to within 24 hours. Senior Staff Energy Management Specialistdakota Singh Mdiv, [facility] Robbins [phone] [email or web address] On-call Robbins: [phone] 22/06 Pager ,[facility], and Brock Hernandez Pager [phone] 09/02/23 1116 Clinical Encounter Type Visited With Patient Visit Type Introduction Pastoral Time Spent 15 min Referral Other (See Comment) (rounding) Spiritual Assessment Spiritual Observation Spirituality helpful Emotional Observation Coping well Hope Observation Specific hope focus Support Observation By Family Interventions Provided Active listening;Supportive presence Facilitated Verbalization of feelings Explored Expectations Lining Feller Education Lining Feller Service Available Yes Educated Patient Outcomes Patient Outcomes Reduced distress Plan of Care Continue Visiting PRN NUTRITION RISK SCREENING NOTE Nutrition Plan of Care: 1. Continue current diet order. 2. No oral supplements warranted at this time. 3. Monitor for significant weight changes. Monitor GI and skin integrity. 4. Monitor and encourage po intakes with goal of average po being 100%. 5. office automation technician to follow. George Styles is a 53 y.o. 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 His post-transplant course was noteworthy for nephrostomy tube (05/17/2022-09/10/2022) due to concern for ureteral stone. He presents as a direct admission for fever, cough, for infectious workup. Pt unavailable and information obtained via chart review Quality Control Supervisor Screening Pt's appetite is good. Pt with [...] with meds Food Allergies reviewed:Shellfish Cultural or Zoroastrian Restrictions/Preferences: None GI: Last Bowel Movement: 09/01/23 [...] time. Will continue to monitor. 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 - continue home aspirin 81mg daily, [...] as outlined above. Kevin Sage MD Pager [phone] Summary: Pharmacy Med Rec Department of Pharmacy [...] Refills: 0 Provider: Zuly Bruno NP Pharmacy: [facility] Other Comments: Patient reported his Last Home Dose of mycophenolate & tacrolimus was on 08/28/23 at 0900. Patient reported he was taking Bactrim and benzonatate for fevers and a cough he was having. Please feel free to contact me with any further questions. Name: Heidy Chatman Phone #: [phone] Date/Time: 09/01/2023 2:01 PM Time Spent: 15 minutes Associated attestation - Matt Kramer RPh,PharmJenna - 09/01/2023 2:28 PM EDT Department of Pharmacy Admission Medication Reconciliation Note Patient: George Styles [facility] I have reviewed the home medication list with the Wood Handler. All changes to the home medication list have been updated in I[facility]. Updated [facility] Med List: Prior to Admission Medications Prescriptions [...] me with any further questions. Name: Matt Dooleykatarzyna sylvester,PharmD Phone #: [phone] Date/Time: 09/01/2023 2:28 PM Transplant Infectious Disease [...] to follow. Please Epic message or page [phone] with questions. 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 - continue home aspirin 81mg daily, [...] 5.05 (H) 11/19/2018 Kevin Sage MD, SERA Agricultural Equipment Test Engineer of Clinical Medicine [facility] Discharge Planning Patient [...] Yes Name and Contact information: Gian Styles ([phone]) Reviewed and Updated in Demographics? : Yes [...] patient on Anticoagulation? : No [id number] [place] [address] - [address] [facility] [address] [facility] [id number] Hand I Blocker Does the patient or merchandising representative express financial concerns? : No Employed?: Disabled Coping/Stress Concerns about patient s coping and stress?: No Concerns about patient s caregiver s coping and stress?: No Values and Beliefs Cultural or religion practices that may impact discharge planning and/or [...] Plan 1. Identified self and role as Straightening Press Operator Helper. 2. Confirmed and updated demographics and treatment team. 3. Straightening Press Operator Helper will continue to follow with medical team/pt for any other additional discharge needs. Kasandra DON RN [facility] [phone] *Please note I am float CM and work Thursday and Thursday every other week. Please call [phone] for assist in my absence. 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 - continue home aspirin 81mg daily, atorvastatin 20mg daily Gout: continue home allopurinol 200mg daily BPH: continue home flomax 0.4mg daily DVT PPX: SQH Code Status: Full Code Disposition: Pending clinical course. Anticipate eventual discharge home. Discussed with team and attending, Kevin Sage MD, on rounds. Signed, Laurel Serrano MD, PhD documented in this encounter [facility] 09-10-2023 Hospital Discharge instructions Laurel Serrano [...] a sleep doctor. You will need to order picker/assembler the oxygen concentrator when you leave the [...] on healthy foods. documented in this encounter [facility] 09-01-2023 Consult note Associated Order (s): IP CONSULT TO PULMONOLOGY Pulmonary Medicine Inpatient Consultation Reason for Consultation: bronch for infectious workup Requesting Physician: Dr. Sage Pulmonary Attending Physician: Dr. Diaz CURRENT HOSPITALIZATION: Admit Date: 08/28/2023 [facility] Hospital LOS: 4 days Impression/Recommendations: George [...] Recommendations: - Plan to bronch tomorrow morning. NPO@MI, order placed - would repeat HIV, last [...] of time. 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 Other histories as documented in the [...] contacts. He traveled to [place] to [facility] in May. REVIEW OF SYSTEMS A [...] DAY SURGERY MAIN OR KIDNEY TRANSPLANT W/[place] NEPHRECTOMY N/A 04/12/2020 Laterality: N/A; Surgeon: LU Palma; Location: [facility] SAME DAY SURGERY MAIN OR [...] Alamo MD I can be reached via [employer] message (Socitive) or Pager #[phone] documented in this encounter [facility] 08-28-2023 History and physical note Images from the original note were not included. Internal Medicine Admission History & Physical Patient: George Styles, 1970, [id number] Physician: Aric Turner MD, PGY1, Pager #[phone], TM service Date of face to face [...] So he went to see the transplant geophysical observer. He was found elevated Cr and asked [...] Appetite is ok now. Urine is about 4881-1923 ml every day. 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 - continue aspirin 81mg daily, atorvastatin [...] Pierson, Luisa Steven, Renee Rivera, Daisha Max Hoop Bending Machine Operator: José Miguel Garnica All Txt: 04/13/2020 [...] results found for: CYCLOSPORIN , CYCLOSPORIN2 , [id number] , CYCLORAND No results found for: SIROLIMUS [...] Rest as above. Kevin Sage MD Pager [phone] documented in this encounter [facility] 08-28-2023 History of Present illness Narrative Images from the original note were not included. 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 Hoop Bending Machine Operator: Anayeli Burt Date of Liver Transplant: 04/13/2020 (Kidney), 04/13/2020 (Liver) 3 years 4 months post Liver/Kidney Transplant Primary Disease: Hypertensive Nephrosclerosis Transplant Grey Tender: Erma Roe/ Daisha Max Primary Care physician: [...] and faMOTIdine === None Specified Preferred Lab: [facility] Change in lab frequency / new order [...] every 12 hours. ADDITIONAL INFORMATION: None Specified, [id number] [place] [address] - [address] [facility] [address] [facility] [address] [facility] [address] [facility], [address] [facility] [address] [facility]/pharmacy #77 [place] [address] [address] [facility] [address] [facility] [address] [facility] [address], [place] 111 [facility] [address] ROS and SCREEN: Chest Pain: negative Cough: [...] PHYSICIAN: I saw George Styles at the [facility] on 08/28/2023. Patient is a 53 y.o. 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 tSeve Munoz MD weigher and grader Division of Nephrology [facility] documented in this encounter [facility] 08-28-2023 Instructions Mainor Busby RN - 08/28/2023 2:15 PM EDT - Admission for fevers, cough, and night sweats documented in this encounter [facility] 08-19-2023 History of Present illness Narrative [facility] RX OUTREACH ADVANCED: Call Information: Date and Time of Contact: 08/19/2023 2:52 PM Method of Contact: By Phone Contact Type: Prescriptions Contactor: [facility] Contactee: Patient Shipping/Pickup: Medicare B Refill?: No Medication Name: Tacro 0.5mg Delivery Method: Air Delivery Location: Home Signature Required: No Mailing/Pickup Date: 08/25/2023 Shipping Address: [address] [place] [address] [address] Contact Info: Specialty ([facility]) [phone] Jakob [phone] [facility] [phone] Raheem [phone] Bedside Delivery ([facility]) [phone] documented in this encounter [facility] 06-12-2023 History of Present illness Narrative Images from the original note were not included. George Styles is a 53 y.o. 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 No longer follows with a local geophysical observer. History of Present Illness: Since George was [...] and lab results. Rebeca Olsen MSN, RN, THEATER TECHNICIAN-BC, CCTN Certified Nurse Practitioner [facility] [address] [facility] [address] documented in this encounter [facility] 06-12-2023 Instructions JEANNA Hess - 06/12/2023 3:00 PM EDT No change in immunosuppression. documented in this encounter [facility] 06-10-2023 History of Present illness Narrative [facility] OUTREACH ADVANCED: Call Information: Method of Contact: By Phone Contact Type: Prescriptions Contactor: [facility] Contactee: Patient Contact Outcome: Left message Shipping/Pickup: Medication Name: Mycophenolate sod 180 mg Contact Info: Specialty ([facility]) [phone] Jakob [phone] [facility] [phone] Raheem [phone] Bedside Delivery ([facility]) [phone] [facility] RX OUTREACH ADVANCED: Call Information: Date and Time of Contact: 06/12/2023 9:43 AM Method of Contact: By Phone Contact Type: Prescriptions Contactor: [facility] Contactee: Patient Contact Outcome: Left message and Follow-up Shipping/Pickup: Medicare B Refill?: No Medication Name: Myco 180 Contact Info: Specialty ([place]) [phone] Jakob [phone] [facility] [phone] Raheem [phone] Bedside Delivery ([facility]) [phone] [facility] RX OUTREACH ADVANCED: Call Information: Date and Time of Contact: 06/12/2023 10:08 AM Method of Contact: By Phone Contact Type: Prescriptions Contactor: [facility] Contactee: Patient Shipping/Pickup: Medicare B Refill?: No Medication Name: Mycophenolate 180mg DR Delivery Method: Air Delivery Location: Home Signature Required: No Mailing/Pickup Date: 06/17/2023 Shipping Address: [address] [place] [address] Contact Info: Specialty ([facility]) [phone] [facility] [phone] [facility] [phone] Raheem [phone] Bedside Delivery ([facility]) [phone] documented in this encounter [facility] 04-13-2023 Note [place] [facility] Subjective George Styles is a [...] Legacy Encounter on (more content not included)... [facility] 03-12-2023 History of Present illness Narrative [facility] RX OUTREACH ADVANCED: Call Information: Date and Time of Contact: 03/12/2023 10:34 AM Method of Contact: By Phone Contact Type: Prescriptions Contactor: [facility] Contactee: Patient Shipping/Pickup: Medicare B Refill?: No Medication Name: Mycophenoloate sod 360 mg prednisone 5mg Delivery Method: Air Delivery Location: Home Signature Required: No Mailing/Pickup Date: 03/16/2023 Shipping Address: [address] [place] [address] Contact Info: Specialty ([place]) [phone] Jakob [phone] [facility] [phone] Raheem [phone] Bedside Delivery ([facility]) [phone] [facility] RX OUTREACH ADVANCED: Call Information: [...] Required: No Mailing/Pickup Date: 03/19/2023 Shipping Address: [address] [place] [address] [address] Contact Info: Specialty ([place]) [phone] Jakob [phone] [facility] [phone] Raheem [phone] Bedside Delivery ([facility]) [phone] documented in this encounter [facility] 03-10-2023 History of Present illness Narrative [facility] OUTREACH ADVANCED: Call Information: Date and Time of Contact: 03/10/2023 12:00 PM Method of Contact: By Phone Contact Type: Prescriptions Contactor: [facility] Contactee: Patient Contact Outcome: Left message and Call back later Shipping/Pickup: Medication Name: Mycophenolate ; Tacrolimus Contact Info: Specialty ([place]) [phone] [facility] [phone] [facility] [phone] Raheem [phone] Bedside Delivery ([facility]) [phone] documented in this encounter [facility] 03-10-2023 History of Present illness Narrative [facility] RX OUTREACH ADVANCED: Call Information: Date and Time of Contact: 03/10/2023 12:00 PM Method of Contact: By Phone Contact Type: Prescriptions Contactor: [facility] Contactee: Patient Contact Outcome: Left message and Call back later Shipping/Pickup: Medication Name: Mycophenolate ; Tacrolimus Contact Info: Specialty ([place]) [phone] [facility] [phone] [facility] [phone] Raheem [phone] Bedside Delivery ([facility]) [phone] [facility] RX OUTREACH ADVANCED: Call Information: Date and Time of Contact: 03/12/2023 10:32 AM Method of Contact: By Phone Contact Type: Prescriptions Contactor: [facility] Contactee: Patient Contact Outcome: Left message Shipping/Pickup: Medication Name: Mycophenolate sodium (MYFORTIC) 180 MG Tab tacrolimus 0.5 mg Contact Info: Specialty ([place]) [phone] [facility] [phone] [facility] [phone] Raheem [phone] Bedside Delivery ([facility]) [phone] documented in this encounter [facility] 01-16-2023 History of Present illness Narrative -Referring Provider for today's consult: Daisha Max DO -Primary Care Provider: Zuly Bruno History of Present Illness George Styles is a 52 y.o. male who presents to the [facility] Transplant Hepatology Clinic today for follow-up [...] 05/17/2022 Surgeon: Enzo Heart DO; Location: [facility] INTERVENTIONAL RADIOLOGY (VIR) LIVER TRANSPLANT, ORTHOTOPIC N/A 04/12/2020 Laterality: N/A; Surgeon: LU Palma; Location: [facility] SAME DAY SURGERY MAIN OR KIDNEY TRANSPLANT W/O [place] NEPHRECTOMY N/A 04/12/2020 Laterality: N/A; Surgeon: LU Palma; Location: [facility] SAME DAY SURGERY MAIN OR [...] 0.3 12/29/2022 Explant Pathology Pathologic Diagnosis A. [place] liver, orthotopic liver transplant resection (1458 gram): [...] A/P with IV contrast (06/27/2022): 1. 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 Daisha Max DO Agricultural Equipment Test Engineer Gastroenterology, Hepatology and Nutrition [facility] Pager: [phone] Images from the original note were not included. 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 Hoop Bending Machine Operator: Anayeli Burt Date of Liver Transplant: 04/13/2020 (Kidney), 04/13/2020 (Liver) 2 years, 8 months post Liver/Kidney Transplant Primary Disease: Hypertensive Nephrosclerosis Transplant Grey Tender: Steve Munoz Primary Care physician: Zuly Bruno [...] levels: No results found for: CYCLOSPORIN, CYCLOSPORIN2, [id number], CYCLORAND No components found for: CYCLOSPORINE, 2HR [...] hours. ADDITIONAL INFORMATION: None Specified [id number] [place] [address] - [address] [facility] [address] [facility] [address] [facility] [address] [facility] [facility] [address] [id number] [place] [address] - [address] [facility] [address] [facility] [address] [facility] [address], [place] [address] [place] [address] ROS and SCREEN: Chest Pain: negative Cough: [...] ADDRESS WITH PHYSICIAN: documented in this encounter [facility] 01-16-2023 Instructions José Miguel Garnica RN - 01/16/2023 9:40 AM EST - Labs Every 2 months - Discuss night time urination with your PCP - Schedule Colonoscopy through PCP - Follow up in 1 year documented in this encounter [facility] 09-10-2022 History of Present illness Narrative UROLOGY CLINIC NOTE Reason for Appointment: BPH with LUTS HPI: Patient is a 52 yo male with a DDRT to the [facility] in 2019. Nephrostomy tube placed 05/17/22 [...] and no hydronephrosis. Some reflux up the penobscot right ureter but good drainage of both transplant and penobscot ureter to the bladder. 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 Lymph/Heme: Negative [...] x 4, Normal strength. No edema. Skin: [place], warm, and dry. There are no rashes [...] and no hydronephrosis. Some reflux up the penobscot right ureter but good drainage of both transplant and pen[place]scot ureter to the bladder. Nephrostomy tube was [...] MD 09/10/22 documented in this encounter [facility] 07-07-2022 History of Present illness Narrative [...] assisted off the table and escorted to senior receptionist where they made a follow up. [...] yo male with a DDRT to the [facility] in 2019. Nephrostomy tube placed 05/17/22 [...] to have transplant ureter with anastomosis to penobscot right ureter. Nephrostogram without filling defects and no hydronephrosis. Some reflux up the penobscot right ureter but good drainage of both transplant and penobscot ureter to the bladder. Nephrostomy tube was removed without issue. Patient does have some sensation of incomplete bladder emptying and occasional sensation in his right flank. PVR today was 33cc. Will re-evaluate urinary symptoms at next appointment. --continue Flomax --RTC in one month flow flow/PVR/IPSS Patient to call with any additional questions or concerns. 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 Lymph/Heme: Negative [...] x 4, Normal strength. No edema. Skin: [place], warm, and dry. There are no rashes [...] yo male with a DDRT to the [facility] in 2019. Nephrostomy tube placed 05/17 [...] bag if needed. documented in this encounter [facility] 06-27-2022 History and physical note Patient was evaluated in clinic as a nurse visit. Please refer to Rena Brewster's note. [facility] Work Phone: 06-27-2022 History and physical note Patient was evaluated in clinic as a nurse visit. Please refer to Rena Brewster's note. documented in this encounter [facility] 06-27-2022 History of Present illness Narrative TEACHING REGARDING TX NEPH COMPLETED-NEPH TUBE SITE DRY AND INTACT-CLEAR YELLOW URINE IN THE BAG-INSTRUCTED ABOUT FLUSHING, BAG CHANGING ETC. NUMEROUS QUESTIONS ASKED AND ANSWERED-VERBALIZED UNDERSTANDING documented in this encounter [facility] 06-18-2022 Note EXAMINATION: CT ABD/ PELVIS [...] mass or enlargement. KIDNEYS: Marked atrophy of penobscot kidneys. Transplant right pelvic kidney with percutaneous [...] authenticated by: MÓNICA JIMENEZ Date: 2022-06-18 13:53 [facility] 06-12-2022 Instructions Anayeli Christianson RN - 06/12/2022 3:21 PM EDT Do not take apart/disrupt nephrostomy tube system. Call Interventional Radiology and/or on-call transplant nurse [phone] for instruction if need to flush (clot or decreased flow). Take cipro 500mg, one tablet, twice per day for 14 days documented in this encounter [facility] 06-12-2022 History of Present illness Narrative Images from the original note were not included. 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 Hoop Bending Machine Operator: Anayeli Burt Date of Liver Transplant: 04/13/2020 (Kidney), 04/13/2020 (Liver) 2 year, 1 months post Liver/Kidney Transplant Primary Disease: Hypertensive Nephrosclerosis Transplant Grey Tender: Steve Munoz Primary Care physician: Zuly Bruno [...] transport for appointment: no Did front end application developer confirm current address and insurance information is correct: yes VITALS BP Readings from Last 3 Encounters: 06/12/22 133/66 07/06/22 (P) 156/79 05/20/22 145/64 Pulse Readings from [...] LAB AND PHARMACY: None Specified [facility] [place] [address] - [address] [address] [facility] [address] [place] [address], [address] [place] [address] [facility] #[id number] - [place] [id number] - [address] [facility] [address] [facility] [address] [facility] [address], [place] [address] [facility] [address] ROS and SCREEN: Chest Pain: negative Cough: negative SOB: negative Abd Pain: negative Nausea: positive Vomiting: negative Diarrhea: negative Constipation: negative Dysuria: positive Edema: negative Tremors: negative Headaches: negative Wound issues: negative Pt has neph tube w clear yellow urine. States he had a small clot that he dislodged QUESTIONS OR CONCERNS TO ADDRESS WITH PHYSICIAN: I saw George Styles at the [facility] on 06/12/2022. Patient is a 52 y.o. 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 Steve Munoz MD weigher and grader Division of Nephrology [facility] documented in this encounter [facility] 06-04-2022 Instructions TATI GROVE - 06/04/2022 11:04 AM EDT Thank you for joining us for your neph tube follow up. We recommend routine exchange every 8-10 weeks. Please reach out at [phone] when it is time to set your next routine exchange. Thank you IR clinic documented in this encounter [facility] 06-04-2022 History of Present illness Narrative [...] exchange. Verbalized understanding. documented in this encounter [facility] 05-20-2022 Note Formatting of this n [...] now distressbat the time of his discharge. Leno Cook RN [facility] 05-20-2022 Miscellaneous Notes Patient discharged. AVS [...] provide teaching before his discharge Leon GALLARDO #[id number] Leon Cook RN Afternoon assessment completed at [...] Interdisciplinary Rounds/Family Conf Outcome: Ongoing Discussed with [facility] re: possible urine culture performed at their facility. However, based on urinalysis completed at that time, which was only notable for hematuria, culture was not performed and sample no longer feasible for culture. Liam Julian MD Internal Medicine/Pediatrics, PGY-3 2003: IHIS message sent to Dr Justyn [...] at this time. MD notified and aware. At 0900, I rounded [...] orders in place. At 1530, I text parisd Kaitlynn Gomez MD that patient has only [...] with questions. Evan Byrd MD Urology, PGY-2 #[id number] I certify that this patient requires inpatient [...] Kallie Lorenzana RN [facility] Note Formatting of this [...] discharge/transition of care. Outcome: Adequate for Discharge [facility] 05-20-2022 Note Formatting of this n ote might be different from the original. Parisd Vera Dillard MD R10 Rm 1006 Jensen Orellana Please let's have a clear order on how the nephrostomy site dressing need to be changed when the patient goes home so we provide teaching before his discharge Leon RN #[id number] Leon Cook RN [facility] 05-20-2022 History of Present illness Narrative Images from the original note were not included. [facility] Note: [facility] received the following discharge prescription(s): Medication reconciliation was completed with comparison to discharge reconciliation report. The prescription(s) will be delivered to the patient's bedside on 05/20/22. Total cost is $0. Yanira Her RPh,PharmD Specialty ([place]) [phone] [facility] [phone] [facility] [phone] [facility] [phone] [place] [phone] Bedside Delivery ([facility]) [phone] Attending I saw George Styles at the [facility] on 05/19/2022. I saw and independently [...] Daily Progress Note Patient: George Styles, 1970, [id number] Physician: Liam Julian MD, PGY-3, Pager #[phone], [id number] Subjective/Interval History: No acute events overnight. Passed [...] alcoholic cirrhosis/ESRD follows with Dr Munoz. - Continue home Tacrolimus and CellCept. CAD [...] Saldana MD Division of Hospital Medicine Pager [phone] Attending I saw George Feliz Jensen at the [facility] on 05/18/2022. I saw and independently [...] Nishant Gamez MD 10 mg at 05/18/22 033 Or oxyCODONE (ROXICODONE) tablet 5 mg 5 [...] Daily Progress Note Patient: George Styles, 1970, [id number] Physician: Nishant Gamez MD, PGY2, Pager #[phone], [email or web address] Subjective/Interval History: Nephrostomy tube placed yesterday with [...] to have stablized for this to be merchandising representative. Daya (Nunu) Jeff Saldana MD Division of Hospital Medicine Pager [phone] Internal Medicine Daily Progress Note Patient: George Styles, 1970, [id number] Physician: Nishant Gamez MD, PGY2, Pager #[phone], [email or web address] Subjective/Interval History: Worsening creatinine this morning with [...] Saldana MD Division of Hospital Medicine Pager [phone] Attending I saw George Styles at the [facility] on 05/17/2022. I saw and independently [...] Daily Evan Bennett MD 20 mg at 05/16/228 gabapentin (NEURONTIN) capsule 400 mg 400 mg Oral QHS Evan Bennett MD 400 mg at 05/16/222047 guaiFENesin (ROBITUSSIN) oral solution 400 mg 400 mg Oral Q6H PRN Evan Bennett MD heparin injection 5,000 Units 5,000 Units Subcutaneous Q8H Nishant Gamez MD 5,000 Units at 05/16/222051 lactated ringers IV solution Intravenous Continuous Nisahnt Gamez MD 125 mL/hr at 05/17/22 0546 [...] of chart and discussion with treatment team, Straightening Press Operator Helper has not identified needs at this time. [...] follow. Introduced self and role of the systems integration manager to patient. Provided emotional and spiritual support and the patient responded by sharing their experience and discussed the following: - Spirituality/Zoroastrian Affiliation: As a kid attended [employer] but not a strong identity now - Family support - pt's brothers live close by Energy Management Specialist provided: - Supportive presence - Active listening - Validation of feelings/emotions Patient encouraged to request a systems integration manager as needed. Chaplains are available in-house 24 hours a day and 7 days a week. For urgent matters in [facility], please page [phone]. If the request is not urgent, please enter a consult. Consults are responded to within 24 hours. Angie Singh Mdiv, [facility] Burn [facility] and Transplant [place] [address] Energy Management Specialist [facility] Energy Management Specialist Robbins [phone] [email or web address] [email or web address] Nahid Pager [phone] 22/06 Pager ,BS, and Brock 1500 22/06 Raheem Pager [phone] 05/16/22 1128 Clinical Encounter Type Visited With Patient Visit Type Introduction Pastoral Time Spent 15 min Referral Other (See Comment) (Rounding) Spiritual Assessment Spiritual Observation Spirituality helpful;Identifies as (see comment) (Faith) Emotional Observation Coping well Hope Observation Hopeful and accepting Support Observation By Family Interventions Provided Active listening;Supportive presence Facilitated Verbalization of feelings;Sharing of life story;Identifying support system Explored Expectations [place] Education [place] Service Available Yes Educated Patient Outcomes Patient Outcomes Articulated purpose/meaning Plan of Care Continue Visiting PRN Internal Medicine Daily Progress Note Patient: George Styles, 1970, [id number] Physician: Nishant Gamez MD, PGY2, Pager #[phone], [email or web address] Subjective/Interval History: Overall feeling okay this morning. 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 [...] Supervision Transfer Assessment: Sit to Stand Transfer [place] Level: Sit->Stand: independent Skilled Intervention/Details: Sit->Stand: x1 from EOB Stand to Sit Transfer [place] Level: Stand->Sit: supervision Assistive Device: Stand->Sit: armed chair Skilled Rationale: Controlled descent for sitting, Verbal cues Gait/Functional Mobility: Gait Assessment [place] Level: Gait: supervision Assistive Device: Gait: gait belt Gait Distance (feet): 200 Gait Deviations Identified: decreased grace, decreased step length, decreased stride length Gait Skilled Rationale: verbal, upright posture Skilled Intervention/Details - Gait: Pt with steady gait without LOB or complaints of SOB. Stairs: Stairs Assessment [place] Level: Stair Negotiation: stand-by assist Assistive Device: Stair Negotiation: gait belt, left rail (ascending) Number of stairs: 9 Stairs Skilled Rationale: reciprocal pattern Outcome Score(s): CURRENT [facility] Basic Mobility Inpatient Short Form Turning over in bed: 4 - No Assistance Sitting/standing from chair: 4 - No Assistance Moving from lying on back to sittin - No Assistance Moving to and from bed to chair: 4 - No Assistance Walk in hospital room: 3 - A Little Assistance Climbing 3-5 steps with a railin - A Little Assistance CURRENT [facility] Mobility Raw Score: 22 CURRENT [facility] Mobility Functional Limitation/Modifier: 20.91% Currently Impaired [...] reported no concerns with discharging home with brothers support. 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 IADL History IADLs: independent Primary Language: Bahraini Home Management Skills: independent Meal Prep Responsibility: [...] Assessment: Transfer Assessment: Sit to Stand Transfer [place] Level: Sit->Stand: independent Skilled Rationale: Cues for increased safety Skilled Intervention/Details: Sit->Stand: x1 EOB Stand to Sit Transfer [place] Level: Stand->Sit: supervision Assistive Device: Stand->Sit: gait belt, armed chair Skilled Rationale: Verbal cues, Controlled descent for sitting, Cues for increased safety Skilled Intervention/Details: Stand->Sit: cues for hand placement and controlled descent Functional Mobility: Functional Mobility [place] Level: Functional Mobility/Gait: stand-by assist Assistive Device: Functional Mobility/Gait: gait belt Functional Mobility Distance: Distance needed for limited community mobility Functional Mobility Deficits: Activity tolerance, Balance, Decreased step length, Generalized weakness Functional Mobility Skilled Rationale: Verbal cues, Facilitate postural control Skilled Intervention/Details - Functional Mobility/Gait: cues for upright posture Outcome Score(s): CURRENT AM-PAC Daily Activity Inpatient Short Form Putting on/Taking Off Lower Body Clothin - A Little Assistance Bathin - A Little Assistance Toiletin - A Little Assistance Putting on/Taking Off Upper Body Clothin - No Assistance Groomin - No Assistance Eatin - No Assistance CURRENT AM-[facility] Activity Raw Score: 21 CURRENT AM-PAC Activity Functional Limitation/Modifier: 32.79% Currently Impaired in [...] DAY SURGERY MAIN OR KIDNEY TRANSPLANT W/O [place] NEPHRECTOMY N/A 04/12/2020 Laterality: N/A; Surgeon: LU [...] by: Mel Norman OT, OTR/L License #: [id number] pager # [phone] 05/20/2022 Upon discontinuation of Acute Care Occupational Therapy Services or patient discharge from the hospital this note represents the current Occupational Therapy Discharge Summary. documented in this encounter [facility] 05-20-2022 Hospital course Narrative Discharge Summary [...] during his recent hospital stay at [facility]. As you may know, George [...] Saldana MD Division of Hospital Medicine p: [phone] f: [phone] CONSULTS DURING ADMISSION: IP CONSULT TO SURGERY - UROLOGY IP CONSULT TO NEPHROLOGY - TRANSPLANT (MEDICINE) IP CONSULT TO INTERVENTIONAL RADIOLOGY IP CONSULT TO PHYSICAL THERAPY IP CONSULT TO OCCUPATIONAL THERAPY IP CONSULT TO PHARMACY BEDSIDE DISCHARGE MED DELIVERY IMAGING / PROCEDURES / RESULTS: Should you require further information or copies of results or reports please contact [employer] @ [phone] LABS AT TIME OF DISCHARGE: Lab Results [...] AT DISCHARGE: Zuly Bruno [address] [facility] / [place] [address] MEDICATIONS: Discharge Orders CT ABDOMEN/PELVIS WITHOUT CONTRAST [...] CAPS Generic drug: docusate Follow-up: Zuly Bruno, TUCKPOINTER CLEANER CAULKER [address] [facility] [address] Schedule an appointment as soon as possible for a visit Follow-up appointment with your, primary care physician within 7-10 days, after discharge. [address] [facility] [phone] Follow up The department of urology will call you with a follow up appointment. LU Ovalle [address] 11th Floor [facility] [phone] Follow up Please make a follow up appointment with Dr. Munoz's office. Upcoming Appointments (up to five)-Some appointments for Medical Center outpatient clinics or diagnostic testing locations are not displayed below Provider Department Dept Phone 06/04/2022 10:40 AM IR CL[facility] Interventional Radiology Clinic [phone] 06/27/2022 1:30 PM [facility] Department of Radiology Arrive at: Arrive to First Floor Registration Desk [phone] 06/27/2022 2:40 PM Ryan Yepez [facility] Arrive at: Arrive to 2nd Floor, Registration [address] 10/31/2022 1:00 PM Steve Munoz [facility] Transplant Section Brain and Spine [facility] [phone] 01/16/2023 9:40 AM TRANSPLANT HEPATOLOGY 3, [facility] Transplant Section Brain and Spine [facility] [phone] Associated attestation - Daya aSldana MD - 05/20/2022 5:24 PM EDT Attending [...] did pass a pea sized stone on 06/19 and this was sent to the lab [...] including counseling and coordination of care. Daya Gao) Jeff Saldana MD Division of Hospital Medicine Pager [phone] documented in this encounter [facility] 05-20-2022 Hospital Discharge instructions Giulia Cavazos [...] be changed by Interventional Radiology. Please call [phone] to schedule this appointment and with any questions or concerns you may have regarding the nephrostomy tube. If you have questions or concerns, please call Interventional Radiology at SOMEONE FROM INTERVENTIONAL RADIOLOGY WILL CALL YOU FOR A FOLLOW UP IN THE IR CLINIC Giulia Cavazos RN Nurse Coordinator Interventional Radiology Interventional Radiology Outpatient scheduling documented in this encounter [facility] 05-19-2022 Note Formatting of this n [...] Ongoing Goal: Interdisciplinary Rounds/Family Conf Outcome: Ongoing [facility] 05-19-2022 Note Formatting of this n ote might be different from the original. Discussed with [facility] re: possible urine culture performed at their facility. However, based on urinalysis completed at that time, which was only notable for hematuria, culture was not performed and sample no longer feasible for culture. Liam Julian MD Internal Medicine/Pediatrics, PGY-3 [facility] 05-18-2022 Note Formatting of this n ote might be different from the original. 2003: IHIS message sent to Dr Justyn Wen, regarding patient passing a small kidney stone, about the size of pea. MD notified. Stone left in strainer in pt bathroom. 0500: IHIS message sent to Dr Justyn Wen, regarding pt BP 174/77. [facility] 05-18-2022 Note Formatting of this n [...] outcomes by discharge/transition of care. Outcome: Ongoing [facility] 05-18-2022 Note Formatting of this n [...] becomes hyponatremic, NS should instead be used. T [facility] Work Phone: 05-18-2022 Note Formatting of this n ote might be different from the original. IHIS chat sent to Dr Tray Quintana, regarding pt BP 190/86. Pt complaining of pain at site of neph tube. PRN pain medication given per order parameters. Pt denies any other symptoms at this time. notified and aware. T [facility] 05-17-2022 Note Formatting of this n ote might be different from the original. At 0900, I rounded with Dr. Gamez and Dr. Saldana. At that time I checked Mr. Styles's vital signs. His pulse oximeter was low and he was tachypneic. Verbal order at bedside to put nasal cannula on starting at 2liters oxygen and to provide incentive spirometer. [facility] 05-17-2022 Note Formatting of this n ote might be different from the original. Interventional Radiology procedure completed with IR Attending Dr. Heart / Dr. Le of percutaneous right nephrostomy tube placement transplant kidney 10.2 Fr Griffin acosta Pt tolerated procedure with moderate sedation local numbing agent . Transported to inpatient after phase I recovery. Post procedure orders in place. [facility] 05-16-2022 Note Formatting of this n ote might be different from the original. At 1530, I text parisd Kaitlynn Gomez MD that patient has only had 25ml urine output in myers this afternoon. [facility] 05-16-2022 Note Formatting of this n [...] with questions. Evan Byrd MD Urology, PGY-2 #[id number] [facility] Work Phone: 05-16-2022 Note Formatting of this n ote might be different from the original. I certify that this patient requires inpatient services at this time. I anticipate the expected length of stay will include at least two midnights. Inpatient services are due to the following medical concerns Obstructive kidney stone. Plans for post hospitalization care will be discharge to home. [facility] 05-16-2022 Consult note Associated Order (s): IP CONSULT TO NEPHROLOGY - TRANSPLANT (MEDICINE) I saw George Styles at the [facility] on 05/16/2022. Reason for Consultation: kidney [...] he was given flomax and sent home. Destin better but noticed more pain and decreased [...] best assessment and recommendations. Maxi Pringle MD [facility] Work Phone: 05-16-2022 Consult note Associated Order (s): IP CONSULT TO NEPHROLOGY - TRANSPLANT (MEDICINE) I saw George Styles at the [facility] on 05/16/2022. Reason for Consultation: kidney [...] he was given flomax and sent home. Destin better but noticed more pain and decreased [...] CREATSERUM 5.05 (H) 11/19/2018 Assessment/Plan: In summary, Geogre Styles is a 52 y.o. male who [...] states he went to his local ED [place] and he was put on Flomax and he did improve. Pt states last night he was unable to void with severe right sided abd pain. Pt states nausea and no vomiting or fevers. Pt states he went back to [place] ED at 0100 and they placed a [...] orthotopic (N/A, 04/12/2020); and kidney transplant w/o penobscot nephrectomy (N/A, 04/12/2020). 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 The penobscot kidneys are progressively atrophic bilaterally compared to [...] of 06/14/2020 are no longer present. The penobscot distal right ureter is decompressed beyond this [...] with surgical history for renal graft and penobscot right urinary drainage, as a discrete ureteroneocystostomy is not identified, and the graft may be draining via a ureteroureterostomy. Urology consultation recommended. 3. 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 Normal [...] PGY-3, Department of Urologic Surgery Pager #: [phone] Associated attestation - Ryan Yepez MD - [...] continue flomax documented in this encounter [facility] 05-16-2022 Note Formatting of this n [...] supported Trust Relationship/Rapport: care explained choices provided [facility] 05-16-2022 Note Formatting of this n ote might be different from the original. On admission to 0, a dual RN initial assessment of skin condition was performed by Kallie Lorenzana RN and Sheri Arguelles RN. Skin Assessment: WDL Jose Score: 20 LDA Added:N Kallie Lorenzana RN [facility] 05-15-2022 Emergency department Note Report given to Kallie RN at [facility] 05-15-2022 Emergency department Note Report given to Kallie RN at [facility] Bladder scan with Dr Villatoro at bedside, [...] diagnosed Thursday and was sent home with [facility]. He went back to that ED [...] DAY SURGERY MAIN OR KIDNEY TRANSPLANT W/O [place] NEPHRECTOMY N/A 04/12/2020 Laterality: N/A; Surgeon: LU [...] Schneider MD Resident 05/15/222030 Pt arrives from [facility] with kidney stones. Pt states he had right lower abd pain and right flank pain with blood in his urine since Thursday. Pt states he went to his local ED [place] and he was put on Flomax and he did improve. Pt states last night he was unable to void with severe right sided abd pain. Pt states nausea and no vomiting or fevers. Pt states he went back to [place] ED at 0100 and they placed a myers and CT scan completed and multiple kidney stones noted. [facility] as he had liver and kidney transplant in 03/2020. documented in this encounter [facility] 05-15-2022 History and physical note Internal Medicine Admission History & Physical Patient: George Styles, 1970, [id number] Physician: Evan Bennett MD, PGY1, Pager #[phone], GM 4 service Date of face to [...] DAY SURGERY MAIN OR KIDNEY TRANSPLANT W/O [place] NEPHRECTOMY N/A 04/12/2020 Laterality: N/A; Surgeon: LU [...] weakness. Hematological: Bruises/bleeds easily. Physical Exam: Vitals: 05/15/224 BP: 147/59 Pulse: 73 Resp: 16 Temp: [...] erythema: Skin: No jaundice or rash Neuro: staff readiness officer 3-7, 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 Strength grossly [...] dilation of the calyces may represent narrowing/partial [id number] ofthe ureter and mild hydronephrosis or sequela [...] with FAYE - IS dosing per neph Frde Prince MD Division of Hospital Medicine [phone] [facility] Work Phone: 05-15-2022 History and physical note Internal Medicine Admission History & Physical Patient: George Styles, 1970, [id number] Physician: Evan Bennett MD, PGY1, Pager #[phone], GM 4 service Date of face to [...] DAY SURGERY MAIN OR KIDNEY TRANSPLANT W/O [place] NEPHRECTOMY N/A 04/12/2020 Laterality: N/A; Surgeon: LU [...] erythema: Skin: No jaundice or rash Neuro: staff readiness officer 3-7, 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 Strength grossly [...] dilation of the calyces may represent narrowing/partial [id number] ofthe ureter and mild hydronephrosis or sequela [...] Medicine [id number] documented in this encounter [facility] 05-15-2022 Emergency department Note Bladder scan with Dr Villatoro at bedside, 14ml noted [facility] 05-15-2022 Consult note Associated Order (s): [...] states he went to his local ED [place] and he was put on Flomax and he did improve. Pt states last night he was unable to void with severe right sided abd pain. Pt states nausea and no vomiting or fevers. Pt states he went back to [place] ED at 0100 and they placed a [...] orthotopic (N/A, 04/12/2020); and kidney transplant w/o penobscot nephrectomy (N/A, 04/12/2020). 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 The penobscot kidneys are progressively atrophic bilaterally compared to [...] of 06/14/2020 are no longer present. The penobscot distal right ureter is decompressed beyond this [...] with surgical history for renal graft and penobscot right urinary drainage, as a discrete ureteroneocystostomy is not identified, and the graft may be draining via a ureteroureterostomy. Urology consultation recommended. 3. 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 Normal [...] PGY-3, Department of Urologic Surgery Pager #: [phone] Associated attestation - Ryan Yepez MD - [...] before surgical intervention --may continue flomax [facility] Work Phone: 05-15-2022 Emergency department Note Advised Dr Schneider concerning no urine output via myers catheter. [facility] 05-15-2022 Physician Emergency department Note ED Attending George Styles has a past medical history of Acute renal failure, CAD (coronary artery disease), Cirrhosis, Dialysis patient, End stage renal disease (06/01/2018), Essential hypertension, benign, Hepatic encephalopathy, History of blood transfusion, and Liver cirrhosis. Presents with a chief complaint of kidney stone and diagnosed Thursday and was sent home with [facility]. He went back to that ED [...] plan of care. Gian Villatoro MD 05/15/222003 [facility] Work Phone: 05-15-[address] Schneider made aware of only 30 ml urine via myers since arrival to room. [facility] 05-15-2022 Physician Emergency department Note dEPARTMENT [...] Laterality: N/A; Surgeon: LU Palma; Location: [facility] SAME DAY SURGERY MAIN OR KIDNEY TRANSPLANT W/O [place] NEPHRECTOMY N/A 04/12/2020 Laterality: N/A; Surgeon: LU Palma; Location: [facility] SAME DAY SURGERY MAIN OR [...] 10-20 1736 SQUAMOUS EPITHELIAL CELLS, URINE: ABSENT 173 CREATININE SERUM(!): 2.85 Baseline around 1.4 1736 WBC(!): 15.81 2028 Patient discussed with Urology. [...] any incorrections. Matt Schneider MD Resident 05/15/222030 [facility] Work Phone: 05-15-2022 Emergency department Note Pt arrives from [facility] with kidney stones. Pt states he had right lower abd pain and right flank pain with blood in his urine since Thursday. Pt states he went to his local ED [place] and he was put on Flomax and he did improve. Pt states last night he was unable to void with severe right sided abd pain. Pt states nausea and no vomiting or fevers. Pt states he went back to [place] ED at 0100 and they placed a myers and CT scan completed and multiple kidney stones noted. Pt sent to [facility] ED as he had liver and kidney transplant in 03/2020. [facility] 03-14-2022 History of Present illness Narrative [...] Required: No Mailing/Pickup Date: 03/17/2022 Shipping Address: [address] Contact Info: Specialty (Yanci) [phone] Jakob [phone] [facility] [phone] [facility] [phone] Bedside Delivery ([facility]) [phone] documented in this encounter [facility] 06-14-2021 History of Present illness Narrative [...] 05/16/22 Goal Progress: Satisfactory Contact Info: Specialty (Ynaci) [phone] [facility] [phone] [facility] [phone] Raheem [phone] Bedside Delivery ([facility]) [phone] [facility] OUTREACH: Call Information: Date [...] Location: Home Signature Required: Yes Shipping Address: [address] [place] [address] Contact Info: Specialty (Minto) [phone] [facility] [phone] [facility] [phone] Raheem [phone] Bedside Delivery ([facility]) [phone] documented in this encounter [facility] Evaluation note Diagnosis FAYE (acute kidney injury)- Primary Acute kidney failure, unspecified Hydronephrosis due to obstruction of ureteral orifice Hydronephrosis due to obstruction of ureteral orifice FAYE (acute kidney injury) Acute kidney failure, unspecified [facility] Follow-up exam- Primary Unspecified follow-up examination [facility] Diagnosis Immunosuppressed status- Primary Unspecified disorder of immune mechanism Kidney replaced by transplant Liver replaced by transplant Abnormal blood chemistry Other abnormal blood chemistry High risk medication use Encounter for long-term (current) use of other medications Aftercare following organ transplant Liver transplant recipient [facility] Att[facility]rost[facility]- [facility] Other hydronephrosis- Primary [facility] Diagnosis FAYE (acute kidney injury) Acute kidney failure, unspecified [facility] Diagnosis Other hydronephrosis- Primary -donor kidney transplant recipient Kidney replaced by transplant [facility] Diagnosis Other hydronephrosis [facility] Diagnosis 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) Encounter for screening for malignant neoplasm of prostate Special screening for malignant neoplasm of prostate [facility] Diagnosis Abnormal blood chemistry- Primary Other abnormal blood chemistry Liver transplant recipient Kidney replaced by transplant Immunosuppressed status Unspecified disorder of immune mechanism Aftercare following organ transplant [facility] Diagnosis Kidney replaced by transplant- Primary [facility] Diagnosis Immunosuppressed status- Primary Unspecified disorder of immune mechanism Kidney replaced by transplant Aftercare following organ transplant High risk medication use Encounter for long-term (current) use of other medications Other general symptoms and signs Abnormal blood chemistry Other abnormal blood chemistry Hypertension secondary to other renal disorders [facility] Diagnosis Histoplasmosis- Primary Histoplasmosis, unspecified [...] Fever Fever, unspecified [facility] Diagnosis Bilateral lower extremity edema- [...] pre-operative examination [facility] Heart failure, diastolic, acute- Primary Acute diastolic heart failure [facility] Consultation (Routine) - New Request Specialty Diagnoses / Procedures Referred By Deni edwards Referred To Contact Interventional Radiology Diagnoses Hydronephrosis due to obstruction of ureteral orifice Daya Saldana MD [address] [place] [id number] Referral ID Status Reason Start Date Expiration Date V isits Requested Visits Authorized [id number] New Request 05/18/2022 06/12/2023 1 1 * Radiology (Emergency) - New Request Specialty Diagnoses / Procedures Referred By Deni edwards Referred To Contact Procedures US RENAL TRANSPLANT SCAN Daya Saldana MD [address] [place] [address] Referral ID Status Reason Start Date Expiration Date V isits Requested Visits Authorized [id number] New Request 05/16/2022 06/10/2023 1 1 * Consultation (Routine) - New Request Specialty Diagnoses / Procedures Referred By Deni edwards Referred To Contact Urology Diagnoses FAYE (acute kidney injury) Ryan Yepez MD [address] [facility] [address] [place] [address] Referral ID Status Reason Start Date Expiration Date V isits Requested Visits Authorized [id number] New Request 05/16/2022 06/10/2023 1 1 * MRI/CAT Scan (Routine) - New Request Specialty Diagnoses / Procedures Referred By Contac t Referred To Contact Diagnoses FAYE (acute kidney injury) Procedures CT ABDOMEN/PELVIS WITHOUT CONTRAST CHG CT SCAN,ABDOMENT AND PELVIS,W/O CONTRAST Ryan Yepez MD [address] [place] [address] Referral ID Status Reason Start Date Expiration Date V isits Requested Visits Authorized [id number] New Request 05/16/2022 06/10/2023 1 1 * (Routine) - Pending Review Specialty Diagnoses / Procedures Referred By Contac t Referred To Contact Procedures PLATELET MONITORING PER PROTOCOL Daya Saldana MD [address] [place] [address] Referral ID Status Reason Start Date Expiration Date V isits Requested Visits Authorized [id number] Pending Review 05/15/2022 06/09/2023 1 1 * (Routine) - Pending Review Specialty Diagnoses / Procedures Referred By Contac t Referred To Contact Procedures DVT/VTE RISK ASSESSMENT Daya Saldana MD [address] [place] [address] Referral ID Status Reason Start Date Expiration Date V isits Requested Visits Authorized [id number] Pending Review 05/15/2022 06/09/2023 1 1 * (Routine) Specialty Diagnoses / Procedures Referred By Contac t Referred To Contact Evan Bennett MD [address] [place] [address] Referral ID Status Reason Start Date Expiration Date Visits Re quested Visits Authorized * (Routine) Specialty Diagnoses / Procedures Referred By Deni edwards Referred To Contact Evan Bennett MD [address] [place] [address] Referral ID Status Reason Start Date Expiration Date Visits Re quested Visits Authorized [facility] for referral (narrative)* Consultation (Routine) - New Request Specialty Diagnoses / Procedures Referred By Deni edwards Referred To Contact Sleep Medicine Diagnoses Hypoxia Kevin Sage MD [address] [place] [address] Referral ID Status Reason Start Date Expiration Date V isits Requested Visits Authorized [id number] New Request 09/10/2023 10/04/2024 1 1 * MRI/CAT Scan (Routine) - New Request Specialty Diagnoses / Procedures Referred By Deni edwards Referred To Contact Diagnoses Histoplasmosis Procedures CT CHEST WITHOUT CONTRAST CHG DIAGNOSTIC COMPUTED TOMOGRAPHY THORAX W/O ROBERTT Kevin Sage MD [address] [place] [address] Referral ID Status Reason Start Date Expiration Date V isits Requested Visits Authorized [id number] New Request 09/10/2023 10/04/2024 1 1 * Radiology (Routine) - New Request Specialty Diagnoses / Procedures Referred By Deni edwards Referred To Contact Procedures US RENAL TRANSPLANT SCAN Steve Munoz MBBS [address] [place] [address] Referral ID Status Reason Start Date Expiration Date V isits Requested Visits Authorized [id number] New Request 08/29/2023 09/22/2024 1 1 * (Routine) - New Request Specialty Diagnoses / Procedures Referred By Contac t Referred To Contact Procedures PLATELET MONITORING PER PROTOCOL Steve Munoz MBBS [address] [place] [address] Referral ID Status Reason Start Date Expiration Date V isits Requested Visits Authorized [id number] New Request 08/28/2023 09/21/2024 1 1 * (Routine) - New Request Specialty Diagnoses / Procedures Referred By Contac t Referred To Contact Procedures DVT/VTE RISK ASSESSMENT Steve Munoz MBBS [address] [address] Referral ID Status Reason Start Date Expiration Date V isits Requested Visits Authorized [id number] New Request 08/28/2023 09/21/2024 1 1 [facility] Instructions * Patient Instructions - Christin Elizabeth APRN-TUCKPOINTER CLEANER CAULKER - 10/19/2018 9:21 AM EST You should take an extra dose of the lactulose as needed so that you are having 3-4 bowel movementsdaily. You should start the chemical dependency counseling as soon as possible. If you have questions, call the transplant manager social services Fidelina Pierson. in this encounter* Patient Instructions - Sophie Cary RN - 10/12/2018 11:09 AM EST You have been seen in the pre-transplant evaluation clinic by Dr. Restrepo and Sophie Cary. Sophie Cary is your pre-business coordinator she can be reached at [phone] at any time for questions during the pre-transplant process. Your evaluation is complete pendin. Abdominal ultrasound. 2. 6 minute walk test. 3. Cardiology evaluation. Additionally, your inventory control assistant will recommend testing to screen for coronary artery disease. This will be scheduled for you after your cardiology visit. 4. Your coordinator will be requesting record from your last dental visit, colonoscopy and EGD. 5. Please work to complete social work recommendations. Your manager social services will be contacting you to follow up on your progress. 6. You have also been referred for a kidney transplant. An appointment will be scheduled for you sari evaluated in the kidney transplant clinic after you have satisfied requirements dictated by [employer]. Once your testing is complete, we [...] ___ Other Name MRN * Christin Elizabeth, THEATER TECHNICIAN-TUCKPOINTER CLEANER CAULKER - 10/19/2018 9:00 AM EST Formatting of this note may be different from the original. History of Present Illness: Chief Complaint Patient presents with Follow-up Cirrhosis George Styles is a 48 y.o. male who presents to the [facility] Gastroenter[facility] Clinic today regarding his diagnosis/chief complaint(s) of Cirrhosis secondary to ETOH, with ESRD follows with Dr. Orr. Currently undergoing evaluation for liver/kidney transplant. Has been seen in transplant clinic for eval. Still undergoing pre testing. Diagnosed in April 2018. Last drink was immediately prior to hospital admission in [place] for ACLF. Hospital course notable for ARF [...] kidney transplant evaluation. Pt was AOx3. Transplant Physicist [place] role/function was explained and reviewed. The patient [...] and resources were offered. Pt identifies with SPIRITISM temple. Pt confirms being a [place] Citizen. Pt.'s primary language is Bahraini. Pt confirms the ability to read,write, and understand Bahraini. Pt denies potential donors. Donor cards and [...] has valid license, does not regularly drive ([facility] recommends that he not to drive). [...] related disease etoh cirrohosis April dx in [facility] for thirty days. Pt reports [...] as well as referred him to pre business coordinator. Pt and support demonstrated moderate understanding [...] Patient's brother David is a self employed labor contractor. Additional support includes his other brother Tyshawn and his Mary live fifteen minutes away. 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 He confirms being comfortable asking for help. [...] in 2010, he was employed by the [employer]. He has access to SSDI payment (SSDI starts in November) in regards to financial means pre/ post-transplant. Pt confirms (meeting bills currently, ) being able to meet daily needs. Patient's brother asking for additional information on community resources, food stamps and [place]. Refer him to pt.'s dialysis center and the [facility]. Hereports access to Medicaid. Pt. denies [...] court ordered treatment after a DUI charge [facility] in [place], court ordered treatment in 2001 and in [...] by patient from his primary medical provider- [facility] patient was noted as attending an alcohol [...] He was provided with local AOD resources, [facility] AOD informational packet. Pt was referred [...] new visit Date of service: 10/12/2018 -Referring trademark paralegal for today's consult: -Primary Care Provider: Zuly Bruno CC: Chief Complaint Patient presents with Liver Recipient Evaluation History of Present Illness George Styles is a 48 y.o. male who presents to the [facility] liver transplant surgery clinic today for [...] E Meliton 1.19 m/s MV Peak A Mleiton 0.83 m/s E/A ratio 1.43 e' septal [...] processes progressing rapidly Unknown * Elisa Tiwari, TERMINAL BLOCK ASSEMBLER - 10/12/2018 10:00 AM EST Timed up and go 9.9 seconds Eyelet Operator Left 52.8 pounds Right 44.9 pounds Waist circ 38.5 inches * Sophie Cary, SAMI - 10/12/2018 10:00 AM EST Formatting of this note may be different from the original. Patient George Styles ([id number]), accompanied by his brother, was seen on [...] any further questions. Sophie GUERINN, RN Liver Hoop Bending Machine Operator Etiology: ETOH HCC: No ETOH: Yes [...] Yovani Orr MD [address] [address] Status Reason Specialty Diagnoses / Procedures Referred By Contact Referred To Contact New Request Diagnoses Cirrhosis of liver with ascites, unspecified hepatic cirrhosis type Procedures US ABDOMEN RUQ/LIVER/GB Yovani Orr MD [address] [address] Specialty Diagnoses / Procedures Referred By Contac t Referred To Contact Diagnoses FAYE (acute kidney injury) Procedures CT ABDOMEN/PELVIS WITHOUT CONTRAST CHG CT SCAN,ABDOMENT AND PELVIS,W/O CONTRAST Central Scheduling [address] [place] [address] Referral ID Status Reason Start Date Expiration Date V isits Requested Visits Authorized [id number] Pending Review 05/16/2022 06/10/2023 1 1 Specialty Diagnoses / Procedures Referred By Contac t Referred To Contact Diagnoses Other hydronephrosis Procedures FLUORO IMAGING FOR UROLOGY Ryan Yepez MD [address] [facility] [address] [place] [address] Referral ID Status Reason Start Date Expiration Date V isits Requested Visits Authorized [id number] New Request 07/07/2022 08/01/2023 1 1 Specialty Diagnoses / Procedures Referred By Contac t Referred To Contact Procedures DIRECT ADMIT REQUEST Steve Munoz MBBS [address] [place] [address] Referral ID Status Reason Start Date Expiration Date V isits Requested Visits Authorized [id number] New Request 08/28/2023 09/21/2024 1 1 Specialty Diagnoses / Procedures Referred By Contac t Referred To Contact Radiology Diagnoses DARLENE (obstructive sleep apnea) Primary hypertension (CMS/HCC) Bilateral lower extremity edema Shortness of breath Procedures Echocardiogram 2D complete Zuly Bruno NP [address] [place] [address] Referral ID Status Reason Start Date Expiration Date Visits Requested Visits Authorized [id number] Incomplete Perform Procedure 01/06/2024 07/04/2024 1 1 Specialty Diagnoses / Procedures Referred By Contac t Referred To Contact Procedures US IMAGING REGIONAL ANESTHESIA Kehinde Gutierrez MD [address] [place] [address] Referral ID Status Reason Start Date Expiration Date V isits Requested Visits Authorized [id number] New Request 01/22/2024 02/15/2025 1 1 Specialty Diagnoses / Procedures Referred By Contac t Referred To Contact Cardiovascular Medicine Diagnoses Heart failure, diastolic, acute Kelvin Pacheco MD, MBBS [address] [place] [address] Referral ID Status Reason Start Date Expiration Date V isits Requested Visits Authorized [id number] New Request 01/20/2024 02/13/2025 1 1 Specialty Diagnoses / Procedures Referred By Contac t Referred To Contact Procedures US ABDOMEN LIVER DOPPLER US ABDOMEN LIVER TRANSPLANT DOPPLER Timothy Joseph MD [address] [facility] [address] [place] [address] Referral ID Status Reason Start Date Expiration Date V isits Requested Visits Authorized [id number] New Request 01/16/2024 02/09/2025 1 1 Specialty Diagnoses / Procedures Referred By Contac t Referred To Contact Procedures DVT/VTE RISK ASSESSMENT Kelvin Pacheco MD, MBBS [address] [place] [address] Referral ID Status Reason Start Date Expiration Date V isits Requested Visits Authorized [id number] New Request 01/16/2024 02/09/2025 1 1 Specialty Diagnoses / Procedures Referred By Contac t Referred To Contact Procedures PLATELET MONITORING PER PROTOCOL Kelvin Pacheco MD, MBBS [address] [place] [address] Referral ID Status Reason Start Date Expiration Date V isits Requested Visits Authorized [id number] New Request 01/16/2024 02/09/2025 1 1 Referral ID Status Reason Start Date Expiration Date V isits Requested Visits Authorized [id number] New Request 01/16/2024 02/09/2025 1 1 Specialty Diagnoses / Procedures Referred By Contac t Referred To Contact Procedures ECG Kelvin Pacheco MD, MBBS [address] [place] [address] Referral ID Status Reason Start Date Expiration Date V isits Requested Visits Authorized [id number] New Request 01/16/2024 02/09/2025 1 1 Advance Directives No Advanced Directives Records FoundDocuments on File Type Date Recorded Patient Cold Storage Supervisor Expl anation Advance Directives and Living Will Power of Legal Nurse Consultant Latest Code Status on File Code [...] Yovani Orr MD [address] [address] Status Reason Specialty Diagnoses / Procedures Referre d By Contact Referred To Contact Denied Diagnoses Alcoholic cirrhosis, unspecified whether ascites present Pre-transplant evaluation for liver transplant Procedures MRI ABDOMEN WITH CONTRAST UT MRI, ABDOMEN W/CONTRAST Yovani Orr MD [address] [address] Reason Comments Liver Recipient Evaluation Status Reason Specialty Diagnoses / Procedures Referred By Contact Referred To Contact New Request Transplant / Transplant Surgery Procedures PRE NEW PATIENT Yovani Orr MD [address] [address] Alfredito Restrepo MD [address] [place] [address] Reason Comments Reschedule Reason Comments Outside Medical Records Request Reason Comments Social Work Follow-up Reason Comments Kidney Stone Specialty Diagnoses / Procedures Referred By Contac t Referred To Contact Diagnoses Obstructing kidney stone, s/p kidney transplant 2019 Daya Saldana MD [address] [place] [address] [facility] [address] [place] [address] Referral ID Status Reason Start Date Expiration Date Visits Re quested Visits Authorized [id number] 1 1 Reason Comments Follow-up Reason Comments Kidney Recipient Follow-up Liver Recipient Follow-up Reason Comments Consult Reason Comments New Patient Hospital follow up Specialty Diagnoses / Procedures Referred By Contac t Referred To Contact Urology Diagnoses hosp fu with [address] prior Procedures NEW TO DOC/RET PATIENT Zuly Bruno, ROB [address] [place] [address] Ryan Yepez MD [address] [facility] [address] [place] [address] Referral ID Status Reason Start Date Expiration Date Visits Re quested Visits Authorized [id number] Closed 06/27/2022 07/22/2023 1 1 Specialty Diagnoses / Procedures Referred By Contac t Referred To Contact Diagnoses FAYE (acute kidney injury) Procedures CT ABDOMEN/PELVIS WITHOUT CONTRAST CHG CT SCAN,ABDOMENT AND PELVIS,W/O CONTRAST Central Scheduling [address] [place] [address] [place] [address] Referral ID Status Reason Start Date Expiration Date V isits Requested Visits Authorized [id number] Pending Review 05/16/2022 06/10/2023 1 1 Reason Comments Follow-up Specialty Diagnoses / Procedures Referred By Contac t Referred To Contact Urology Diagnoses 1 week fu post NT clamp Procedures RETURN PATIENT Zuly Bruno, ROB [address] [place] [address] [facility]pez MD [facility] [address] [place] [address] Referral ID Status Reason Start Date Expiration Date Visits Requested Visits Authorized [id number] Authorized - 07/07/2022 08/01/2023 2 2 Specialty Diagnoses / Procedures Referred By Deni t Referred To Contact Diagnoses Other hydronephrosis Procedures FLUORO IMAGING FOR UROLOGY Ryan Yepez MD [address] [facility] [address] [place] [id number] Referral ID Status Reason Start Date Expiration Date V isits Requested Visits Authorized [id number] New Request 07/07/2022 08/01/2023 1 1 Specialty Diagnoses / Procedures Referred By Contac t Referred To Contact Urology Diagnoses 1 week fu post NT clamp Procedures RETURN PATIENT Zuly Bruno, TUCKPOINTER CLEANER CAULKER [address] [place] [address] Ryan Yepez MD [address] [facility] [address] [place] [address] Referral ID Status Reason Start Date Expiration Date Visits Re quested Visits Authorized [id number] Closed 07/07/2022 08/01/2023 2 2 Reason Comments Liver Recipient Follow-up Reason Comments Kidney Recipient Follow-up Reason Comments Kidney Recipient Follow-up Specialty Diagnoses / Procedures Referred By Deni t Referred To Contact Diagnoses Kidney replaced by transplant Steve Munoz MBBS [address] [place] [address] [facility] [address] [place] [address] Referral ID Status Reason Start Date Expiration Date Visits Re quested Visits Authorized [id number] 1 1 Specialty Diagnoses / Procedures Referred By Contac t Referred To Contact Diagnoses Pleural effusion on right PNEUMONIA- HX LIVER AND KIDNEY TRANSPLANT Kevin Sage MD [address] [place] [address] [facility] [address] [place] [address] Referral ID Status Reason Start Date Expiration Date Visits Re quested Visits Authorized [id number] 1 1 Reason Comments New Patient Specialty Diagnoses / Procedures Referred By Contac t Referred To Contact Cardiovascular Medicine Diagnoses Heart failure, diastolic, acute Kelvin Pacheco MD, MBBS [address] [place] [address] Referral ID Status Reason Start Date Expiration Date Visits Requested Visits Authorized [id number] Authorized - 01/20/2024 02/13/2025 5 5 (unrecognized [...] DATE CREATED AUTHOR AUTHOR'S ORGANIZ ATION 04/13/2023 [facility] DATE CREATED AUTHOR AUTHOR'S ORGANIZ ATION 05/11/2023 [facility] DATE CREATED AUTHOR AUTHOR'S ORGANIZ ATION 03/18/[address] [facility] EPIC DATE CREATED AUTHOR AUTHOR'S ORGANIZ ATION 03/19/2024 [facility] Care Teams (unrecognized sec tion and content) Manager Maintenance Relationship Specialty Start Date End Date Zuly Bruno CNP PCP - General 07/19/18 Comfort Rivera [facility] [address] [place] [address] Pharmacist Pharmacist 05/16/20 Angel Carpio RPh,PharmD Pharmacist Pharmacist 05/16/20 Te Leigh RP,PharmD Pharmacist Pharmacist 01/09/21 Manager Maintenance Relationship Specialty Start Date End Date Zuly Bruno CNP PCP - General 07/19/18 Comfort Rivera [facility] [address] [place] [address] Pharmacist Pharmacist 05/16/20 Angel Carpio RPh,PharmD Pharmacist Pharmacist 05/16/20 Te Leigh, [facility],PharmD Pharmacist Pharmacist 01/09/21 Manager Maintenance Relationship Specialty Start Date End Date KristophersylvesterlatishaZuly tiptonROB PCP - General 07/19/18 Manager Maintenance Relationship Specialty Start Date End Date MarissaZuly tiptonROB PCP - General 07/19/18 Manager Maintenance Relationship Specialty Start Date End Date KianaZulyROB PCP - General 07/19/18 Manager Maintenance Relationship Specialty Start Date End Date MarissaZuly tiptonROB PCP - General 07/19/18 Manager Maintenance Relationship Specialty Start Date End Date Kiana ZulyROB PCP - General 07/19/18 Manager Maintenance Relationship Specialty Start Date End Date KianaZulyROB PCP - General 07/19/18 Manager Maintenance Relationship Specialty Start Date End Date MarissaZuly tipton TUCKPOINTER CLEANER CAULKER PCP - General 07/19/18 Manager Maintenance Relationship Specialty Start Date End Date Kristophersylvesterjose eZuly TUCKPOINTER CLEANER CAULKER PCP - General 07/19/18 Manager Maintenance Relationship Specialty Start Date End Date Kiana Zuly TUCKPOINTER CLEANER CAULKER PCP - General 07/19/18 Manager Maintenance Relationship Specialty Start Date End Date Kiana Zuly TUCKPOINTER CLEANER CAULKER PCP - General 07/19/18 Manager Maintenance Relationship Specialty Start Date End Date Zuly Bruno CNP PCP - General 07/19/18 Manager Maintenance Relationship Specialty Start Date End Date Zuly Bruno CNP PCP - General 07/19/18 Manager Maintenance Relationship Specialty Start Date End Date Zuly Bruno CNP PCP - General 07/19/18 Manager Maintenance Relationship Specialty Start Date End Date Zuly Bruno CNP PCP - General 07/19/18 Manager Maintenance Relationship Specialty Start Date End Date Zuly Bruno CNP PCP - General 07/19/18 Evan White DO [facility] [place] [address] Infectious Disease Infectious Disease 09/09/23 Manager Maintenance Relationship Specialty Start Date End Date Zuly Bruno CNP PCP - General 07/19/18 Evan White DO [facility] [place] [address] Infectious Disease Infectious Disease 09/09/23 Manager Maintenance Relationship Specialty Start Date End Date Zuly Bruno CNP PCP - General 07/19/18 Evan White [place] [facility] [place] [address] Infectious Disease Infectious Disease 09/09/23 Manager Maintenance Relationship Specialty Start Date End Date Momo Verdugo MD PCP - General Family Medicine 05/21/23 Manager Maintenance Relationship Specialty Start Date End Date Momo Verdugo MD PCP - General Family Medicine 05/21/23 Manager Maintenance Relationship Specialty Start Date End Date Momo Verdugo MD PCP - General Family Medicine 05/21/23 Manager Maintenance Relationship Specialty Start Date End Date Zuly Bruno CNP PCP - General 07/19/18 Evan White DO [address] [place] [address] Infectious Disease Infectious Disease 09/09/23 Manager Maintenance Relationship Specialty Start Date End Date Zuly Bruno CNP PCP - General 07/19/18 Evan White DO [address] [place] [address] Infectious Disease Infectious Disease 09/09/23 Manager Maintenance Relationship Specialty Start Date End Date Zuly Bruno CNP PCP - General 07/19/18 Evan White DO [address] [place] [address] Infectious Disease Infectious Disease 09/09/23 Manager Maintenance Relationship Specialty Start Date End Date Zuly Bruno CNP PCP - General 07/19/18 Evan White DO [address] [place] [address] Infectious Disease Infectious Disease 09/09/23 Manager Maintenance Relationship Specialty Start Date End Date Zuly Bruno CNP PCP - General 07/19/18 Evan White DO [address] [place] [address] Infectious Disease Infectious Disease 09/09/23 Scheduled Active and Recently Administ ered Medications (unrecognized section and content) Medication Order 05/18/2022 05/19/2022 05/20/2022 allopurinol (ZYLOPRIM) tablet 100 mg 100 mg, Oral, DAILY, First dose (after last modification) on Thu05/17/22 at 0900, Until Discontinued 806 (Given - Provider: Mel Hampton RN) 804 (Given - Provider: Josey Braun, SAMI) 930 (Given - Provider: Leon Cook, RN) [...] 08 (Given - Provider: Mel Hampton RN) 805 (Given - Provider: Josey Braun RN) 09 (Given - Provider: Leon Cook RN) gabapentin (NEURONTIN) capsule 400 mg 400 mg, Oral, DAILY AT BEDTIME, First dose on Thu05/15/22 at 2215, Until Discontinued 1999 (Given - Provider: Carolyn Isaac RN) 2059 (Given - Provider: Carolyn Isaac RN) 2100 [...] Leon Cook, RN)1322 (Stopped - Provider: Leon Cook RN) mycophenolate sodium (MYFORTIC) tablet DR 360 mg 360 mg, Oral, EVERY 12 HOURS NON-STANDARD, First dose on Marta 05/15/22 at 2245, Until Discontinued, Give on an empty stomach. Swallow tablet whole; do not split, crush, or chew. 0807 (Given - Provider: Mel Hampton RN)1999 (Given - Provider: Carolyn Isaac RN) 0805 (Given - Provider: Josey Braun, SAMI)205 (Given - Provider: Carolyn Isaac, SAMI) 0742 (Given - Provider: Leon Cook RN)1999 (Canceled Entry - Provider: System Discharge - Comment: Automatically canceled at discontinue of medication order) polyethylene glycol (MIRALAX) packet 17 g 17 g, Oral, EVERY 12 HOURS, First dose (after last modification) on Thu05/16/22 at 0900, Until Discontinued 0810 (Not Given - Provider: Mel Hampton RN - Reason: Patient with symptoms)1959 (Given - Provider: Carolyn Isaac, SAMI) 1136 (Not Given - Provider: Josey Braun RN - Reason: Patient/family refused)2100 (Not Given - Provider: Carolyn Isaac RN - Reason: Patient/family refused - Comment: pt had multiple BM today) 0931 (Given - Provider: Leno Cook, SAMI)2099 (Canceled Entry - Provider: System [...] MD)1999 (Given - Provider: Carolyn Isaac RN) 804 (Given - Provider: Josey Braun RN)2058 (Given [...] Starting on Marta 05/15/22 at 2311, Until Tu05/20/22 at 2110, Mild Pain, Moderate Pain, Maximum [...] Holden RN) 0617 (Given - Provider: Girish Nunez, SAMI)1805 (Given - Provider: Terra Heart RN) 0610 [...] Nunez RN) 08 (Given - Provider: Terra Heart, SAMI)2024 [...] RN) 0841 (Given - Provider: Terra Heart, RN)1053 (JAN Hold - Provider: Automatic Transfer [...] Provider: Erica Ross RN)1619 (Given - Provider: iDllon Lyman RN) 0841 (Given - Provider: Terra [...] administration. 0843 (Given - Provider: Erica Ross RN)2034 (Given - Provider: Tati Ahmadi RN) 0842 (Given - Provider: Terra Heart RN)1053 (JAN Hold - Provider: Automatic Transfer - Reason: Transfer to a Procedural area)141 (JAN Unhold - Provider: Automatic Transfer)2008 (Given - Provider: Tati Ahmadi RN) 09 (Given - Provider: Terra Heart RN) Magnesium [...] Ahmadi RN) 0841 (Given - Provider: [facility], SAMI)1053 (MAR Hold - Provider: Automatic Transfer - Reason: Transfer to a Procedural area)141 (MAR Unhold - Provider: Automatic Transfer)2008 (Given - Provider: Tati Ahmadi RN) 09 (Given - Provider: [facility], SAMI) Sulfamethoxazole-trime thoprim (BACTRIM DS) 800-160 MG per tablet 1 tablet 1 tablet, Oral, THREE TIMES WEEKLY (Once per day on Thursday), First dose on Thu01/18/24 at 0900, Until Discontinued 0846 (Given - Provider: Terra Heart RN)1053 (MAR [...] 0841 (Given - Provider: Terra Heart RN)1053 ([facility] Hold - Provider: Automatic Transfer - Reason: Transfer to a Procedural area)1414 ([facility] Unhold - Provider: Automatic Transfer) 0920 [...] 0841 (Given - Provider: Terra Heart RN)1053 ([facility] Hold - Provider: Automatic Transfer - Reason: Transfer to a Procedural area)1414 ([facility] Unhold - Provider: Automatic Transfer) 0920 [...] from all sources in 24 hours. 1053 ([facility] Hold - Provider: Automatic Transfer - Reason: Transfer to a Procedural area)1414 ([facility] Unhold - Provider: Automatic Transfer)1806 (Given [...] 200-200 mg and Simethicone 20 mg) 1053 ([facility] Hold - Provider: Automatic Transfer - Reason: Transfer to a Procedural area)1414 ([facility] Unhold - Provider: Automatic Transfer) guaiFENesin (ROBITUSSIN) oral solution 400 mg 400 mg, Oral, EVERY 6 HOURS NEEDED, Starting on 01/16/24 at 0202, Until 01/23/24 at 1752, Cough, Congestion 1053 ([facility] Hold - Provider: Automatic Transfer - Reason: Transfer to a Procedural area)1414 ([facility] Unhold - Provider: Automatic Transfer) HYDROmorphone (DILAUDID) injection 0.2 mg (CANCELED) 0.2 mg, Intravenous, EVERY 3 HOURS NEEDED, Starting on Thu01/22/24 at 1323, Until 01/23/24 at 0821, Severe Pain 2103 (Given - Provider: Tati Ahmadi RN) Lidocaine (XYLOCAINE) 10 mg/mL injection (CANCELED) NEEDED, Starting on Thu01/22/24 at 1248, Until Thu01/22/24 at 1306, Intra-op/Intra-Proc 1248 (Given - Provider: Jyoti rByant MD, PhD) Melatonin tablet 6 mg 6 mg, Oral, DAILY AT BEDTIME NEEDED, Starting on 01/19/24 at 0016, Until 01/23/24 at 1752, Insomnia 1053 ([facility] Hold - Provider: Automatic Transfer - Reason: Transfer to a Procedural area)1414 ([facility] Unhold - Provider: Automatic Transfer)2355 (Given - Provider: Tati Ahmadi RN) Ondansetron (ZOFRAN) tablet 4 mg(Linked Group 1) 4 mg, Oral, EVERY 6 HOURS NEEDED, Starting on 01/16/24 at 0202, Until 01/23/24 at 1752, Nausea / Vomiting, 1st line for Nausea/Vomiting 1053 ([facility] Hold - Provider: Automatic Transfer - Reason: Transfer to a Procedural area)1414 ([facility] Unhold - Provider: Automatic Transfer)1809 (See Alternative - Provider: [facility], SAMI) 0430 (See Alternative - Provider: Tati Ahmadi, SAMI)1415 (Given - Provider: [facility], SAMI) Ondansetron 4mg/2ml (ZOFRAN) injection 4 mg(Linked Group 1) 4 mg, Intravenous, EVERY 6 HOURS NEEDED, Starting on 01/16/24 at 0202, Until 01/23/24 at 1752, Nausea / Vomiting, 1st line for Nausea/Vomiting 1053 ([facility] Hold - Provider: Automatic Transfer - Reason: Transfer to a Procedural area)1414 ([facility] Unhold - Provider: Automatic Transfer)1809 (Given - [...] 01/23/24 at 1752, Constipation 1st Line 1053 ([facility] Hold - Provider: Automatic Transfer - Reason: Transfer to a Procedural area)1414 ([facility] Unhold - Provider: Automatic Transfer) Prochlorperazine (COMPAZINE) injection 10 mg 10 mg, Intravenous, EVERY 6 HOURS NEEDED, Starting on 01/17/24 at 1538, Until 01/23/24 at 1752, Nausea / Vomiting, Refractory Nausea Vomiting, For IV route: dilute dose with 10mL normal saline and give by slow IV push at a rate of 5mg/min. Maximum of 40mg/day. 1053 ([facility] Hold - Provider: Automatic Transfer - Reason: Transfer to a Procedural area)1414 ([facility] Unhold - Provider: Automatic Transfer)2349 (Given - [...] BE BASED ON THE PRIMARY CLINICAL RECORDS. [email or web address] provides no warranty or guarantee of the accuracy or completeness of information in this document.
[2024-03-21 07:16] LABS: Creatinine Urine Random 118.82 mg/dL (20.00-300.00); Protein Creatinine Ratio Urine 0.18; Total Protein Urine Random 21.9 mg/dL (<=11.9)
[2024-03-21 07:26] LABS: Basophils Percent Auto 0.7 % (0.2-2.0); Eosinophils Absolute Auto 0.1 10^3/uL (0.0-0.7); Eosinophils Percent Auto 2.3 % (0.9-7.0); Hematocrit 44.8 % (42.0-54.0); Hemoglobin 14.6 g/dL (14.0-18.0); Immature Granulocytes Abs Auto 0.01 10^3/uL (0.00-0.03); Immature Granulocytes Pct Auto 0.2 % (0.0-0.5); Lymphocytes Absolute Auto 1.5 10^3/uL (1.2-3.8); Lymphocytes Percent Auto 34.7 % (20.5-60.0); Mean Corpuscular HGB Conc 32.6 g/dL (29.9-35.2); Mean Corpuscular Hemoglobin 28.6 pg (25.9-34.0); Mean Corpuscular Volume 87.8 fL (80.0-94.0); Mean Platelet Volume 9.9 fL (9.5-13.5); Monocytes Absolute Auto 0.4 10^3/uL (0.3-0.8); Monocytes Percent Auto 9.1 % (1.7-12.0); Neutrophils Absolute Auto 2.3 10^3/uL (1.4-6.5); Platelet Count 225 10^3/uL (150-450); Red Cell Distribution Width 14.4 % (11.0-15.0); White Blood Count 4.3 10^3/uL (4.0-11.0)
[2024-03-21 08:20] LABS: Alanine Aminotransferase 27 U/L (16-63); Alkaline Phosphatase 132 U/L (46-116); Anion Gap 10.8; Aspartate Amino Transferase 25 U/L (15-37); BUN Creatinine Ratio 15.3; Bilirubin Direct 0.3 mg/dL (0.0-0.2); Bilirubin Total 1.4 mg/dL (0.2-1.0); Calcium 9.9 mg/dL (8.5-10.1); Carbon Dioxide 29.3 mmol/L (21.0-32.0); Chloride 105 mmol/L (98-107); Estimated GFR (African America >60 (>=60); Estimated GFR (Non-African Ame 57 (>=60); Gamma Glutamyl Transpeptidase 27 U/L (15-85); Glucose 103 mg/dL (74-106); Phosphorus 3.3 mg/dL (2.6-4.7); Potassium 4.1 mmol/L (3.5-5.1); Sodium 141 mmol/L (136-145)
[2024-03-23 12:08] LABS: Tacrolimus (FK506), Blood 3.5 ng/mL (2.0-20.0)
== END 2024-03-21 06:49 | disposition home or self-care (01) ==
LOC: LAB 06:49
PROVIDERS: PCP Nurse Practitioner
DX: R79.9 Abnormal finding of blood chemistry, unspecified (principal); Z94.0 Kidney transplant status; Z94.4 Liver transplant status; Z48.298 Encounter for aftercare following other organ transplant
CPT/HCPCS: 36415; 80048; 80197; 82042; 82247; 82248; 82570; 82977; 83735; 84075; 84100; 84156; 84450; 84460; 85025

== ENCOUNTER 2024-03-28 06:37 | Outpatient (OUT) | payer MEDICARE, MEDICAID, SELFPAY ==
--- OUTSIDE RECORDS SUMMARY | 2024-03-28 06:45 | XMS_ITS | CCD ---
Author Organization [facility] Care Team Providers Care Can Maker Name Role Phone Marissaz, Zuly Unavailable Unavailable [...] Unavailable AICHHOLZ, ZULY Primary Care Unavailable Aichholz [facility], Zuly Primary Care Provider Miguel [facility],PharmD, Angel Unavailable Unavailab makayla [facility],PharmD, Te Unavailable Unavai lable Aicholz [facility], [facility] Primary Care Provider MIGUEL CARDONA Attending Unavailable MISC, DR BURCH Admitting Unavailable MISC, DR BURCH Consulting Unavailable AICHHOLZ, POT FLUXER ZULY Primary Care Unavailable MISC, DR BURCH Attending Unavailable MISC, DR BURCH Admitting Unavailable MISC, DR BURCH Consulting Unavailable AICHHOLZ, POT FLUXER ZULY Primary Care Unavailable MISC, DR BURCH Attending Unavailable ARCELIA PIZARRO Consulting Unavailable KE BURNHAM Attending Unavailable KE BURNHAM Admitting Unavailable DR MÓNICA JIMENEZ Consulting Unavailable AICHHOLZ, POT FLUXER ZULY Primary Care Unavailable KE BURNHAM Consulting Unavailable MISC, DR BURCH Consulting Unavailable MISC, DR BURCH Attending Unavailable AICHHOLZ, POT FLUXER ZULY Primary Care Unavailable MISC, DR DOCTOR Admitting Unavailable MISC, DR DOCTOR Consulting Unavailable MISC, DR DOCTOR Attending Unavailable AICHHOLZ, POT FLUXER ZULY Primary Care Unavailable MISC, DOCTOR Admitting Unavailable MISC, DR DOCTOR Consulting Unavailable AICHHOLZ, POT FLUXER ZULY Primary Care Unavailable MISC, DR DOCTOR Admitting Unavailable MISC, DR DOCTOR Attending Unavailable MELINDA, DR GEORGE Munoz Consulting Unavailable MELINDA, DR GEORGE Munoz Attending Unavailable AICHHOLZ, POT FLUXER ZULY Primary Care Unavailable MELINDA, DR GEORGE Munoz Admitting Unavailable NAUN ., KE Consulting Unavailable MIRANDA, LYNDSAY Consulting Unavailable MELINDA, DR GEORGE Munoz Consulting Unavailable NAUN ., KE Attending Unavailable NAUN ., KE Admitting Unavailable AICHHOLZ, POT FLUXER ZULY Primary Care Unavailable NAUN ., KE Consulting Unavailable GIAN HERRING Consulting Unavailable AICHHOLZ, POT FLUXER ZULY Consulting Unavailable AICHHOLZ, POT FLUXER ZULY Attending Unavailable AICHHOLZ, POT FLUXER ZULY Admitting Unavailable AICHHOLZ, POT FLUXER ZULY Primary Care Unavailable MISC, DR BURCH Consulting Unavailable MISC, DR BURCH Admitting Unavailable MISC, DOCTOR Attending Unavailable AICHHOLZ, POT FLUXER ZULY Primary Care Unavailable MISC, DR DOCTOR Consulting Unavailable MISC, DR DOCTOR Attending Unavailable MISC, DR DOCTOR Admitting Unavailable AICHHOLZ, POT FLUXER ZULY Primary Care Unavailable MISC, DR BURCH Admitting Unavailable MISC, DR BURCH Consulting Unavailable MISC, DR DOCTOR Attending Unavailable AICHHOLZ, POT FLUXER ZULY Primary Care Unavailable MISC, DR DOCTOR Admitting Unavailable MISC, DR DOCTOR Consulting Unavailable AICHHOLZ, POT FLUXER ZULY Primary Care Unavailable MISC, DR DOCTOR Attending Unavailable MISC, DOCTOR Admitting Unavailable MISC, DR DOCTOR Consulting Unavailable AICHHOLZ, POT FLUXER ZULY Primary Care Unavailable MISC, DR DOCTOR Attending Unavailable AICHHOLZ, POT FLUXER ZULY Consulting Unavailable AICHHOLZ, POT FLUXER ZULY Attending Unavailable AICHHOLZ, POT FLUXER ZULY Admitting Unavailable AICHHOLZ, POT FLUXER ZULY Primary Care Unavailable DR MÓNICA JIMENEZ Consulting Unavailable Aichholz [facility], Zuly Primary [facility] Provider [facility]s A Unavailable Aicholz [facility] Primary Care Provider [phone] [facility] WHIPPLEolas A Unavailable Momo Verdugo MD Primary Care Provider [phone] AICHHOLZ, ZULY Attending Unavailable AICHHOLZ, ZULY Attending [...] Care Unavailable AICHHOLZ, ZULY Primary Care Unavailable CANDIE ALMAGUER Attending Unavailable KELVIN PACHECO K Referring Unavailable AICHHOLZ, ZULY Primary Care Unavailable HAKEEM ALAMO Attending Unavailable SELF, SELF Referring Unavailable SELF, SELF Referring Unavailable REBECA GUTIERREZ Attending Unavailable AICHHOLZ, ZULY Primary Care Unavailable FARHAD PRINCEO Attending Unavailable CONSULT, INFECTIOUS DISEASE Consulting Unav ailable YEISON, STEVE S Admitting Unavailable YEISON, STEVE S Referring Unavailable AICHHOLZ, ZULY Primary Care Unavailable NIKI, KEVIN Admitting Unavailable AICHHOLZ, ZULY Primary Care Unavailable KELVIN PACHECO K Attending Unavailable CONSULT, HEPATOBILIARY Consulting Unavailab le SYSTEM, PROVIDER NOT IN Referring Unavaila ble YEISON, STEVE S Attending Unavailable YEISON, STEVE S Referring Unavailable AICHHOLZ, ZULY Primary Care Unavailable HAKEEM ALAMO Attending Unavailable EVAN WHITE Referring Unavailabl e AICHHOLZ, ZULY Primary Care Unavailable Allergies Allergy Classification Reported Allergen(s) Allergy Type Date of Onset Reaction(s) Facility (1 source) Shellfish; Translations: [SHELLFISH DERIVED] Propensity to adverse reactions (disorder) 8 [facility] (20 sources) Shellfish-Derive d Products Propensity to adverse reactions to drug 9 [facility] (1 source) Shellfish Drug allergy (disorder) The [facility] Medications Current Medications Medication Drug Class(es) [...] 1 capsule by mouth once daily b xdkvyoz-N-najhv acid (NEPHROCAPS) 1 MG capsule Take 1 [...] ankle pain. 0 06/12/2020 06/12/2023 Discontinued lactulose 73615 mg powder for oral solution (19 sources) [...] 09-01-2030 Start: 08-26-2023 [facility] Sulfamethoxazole-trimethoprim 800-160 MG per tablet [...] Active Start: 06-08-2023 take 1 capsule by [facility] once daily Tamsulosin HCl 0.4 MG capsule take 1 capsule by mouth once daily 30 capsule 11 06/08/2023 Active Start: 06-19-2022 take 1 capsule by mo [facility] once daily Tamsulosin HCl 0.4 MG capsule Take 1 capsule by mouth daily. 30 capsule 11 06/19/2022 Active Start: 05-23-2022 take 1 capsule by mo [facility] once daily Tamsulosin HCl 0.4 MG capsule Take 1 capsule by mouth daily. 30 capsule 0 05/23/2022 Active Start: 05-16-2022 End: 05-20-2022 take 0.4 mg by mouth once daily 0.4 mg, Oral, DAILY, F irst dose on 6/17/22 at 0900, Until Discontinued Slow release product. [...] itraconazole Fax results to: Dr. White - [phone] Transplant Neph - [phone] Each 09/10/2023 01/19/2024 Discontinued (Medication Reconciliation (suppress cancel msg)) Start: 09-10-2023 CUSTOM MEDICAT ION Labs to be obtained: 1- Tacrolimus level, trough - collect twice weekly until 09/24/23, then weekly until 10/08/23, them once every two weeks there after. 2- Itraconazole level - obtain once between 09/14-09/18. 3- Chem 6 - Obtain weekly while on itraconazole Fax results to: Dr. White - [phone] Transplant Neph - [phone] Each 0 09/10/2023 Active Diatrizoate (1 [...] 01/16/2023 Discontinued take 2 tablets by mo [facility] in the morning magnesium oxide (Mag-Ox) 400 MG tablet Take 2 tablets by mouth in the morning. 0 Active take 1 tablet by [facility] once daily magnesium oxide (MAG-OX) 400 [...] DAILY (Solid Organ Transplant), First dose on [facility] 01/16/24 at 0800, Until Discontinued, Give on [...] (ROXICODONE) tablet 10 mg polyethylene glycol 3350 35185 mg powder for oral solution (20 sources) [...] rate of 5mg/min. Maximum of 40mg/day. sennosides, skilled nursing 8.6 mg oral tablet (1 source) Start: [...] Coronary arteriosclerosis; Translations: [Atherosclerotic heart disease of [place] coronary artery without angina pectoris] Onset: 3 [...] sources) Taking high risk medication; Translations: [Other penitentiary (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] Episodic Other and ill-defined [...] 05-10-2020 Episodic Other aftercare (2 sources) Other penitentiary (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; Translations: [OTH SKILLED NURSING 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 THERAPY] Onset: 07-06-2022 Episodic Other aftercare (1 source) terminologist (current) use of aspirin; Translations: [GOLF CADDIE CURRENT USE OF ASPIRIN] Onset: 06-20-2022 Episodic [...] transplant] Onset: 08-28-2023 Unclassified (1 source) Other ad terminal makeup operator (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; Translations: [Other ad terminal makeup operator (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] Onset: 08-28-2023 Unclassified (1 source) Hypertension secondary to other renal disorders; Translations: [Hypertension secondary to other renal disorders] Onset: 08-28-2023 Results Test Name Value Interpretation Reference Range Facility B-TYPE NATRIURETIC PEPTIDE ( BRAIN)on 02-26-2024 Natriuretic peptide B (Bld) [Mass/Vol] 72 pg/mL Normal 0-100 [facility] Comment on above: Performed By: #### B MDM SR ####[facility] (DEFAULT)[address] [place] [address] Interpretation and review of laboratory results Normal [facility] Natriuretic peptide B (Bld) [Mass/Vol] 72 pg/mL 0 - 100 pg/mL [facility] CHEM 6 (LYTES, BUN CREA)on 0 02-26-2024 Anion gap [Moles/Vol] 13 mmol/L Normal 7-17 [facility] Comment on above: Performed By: #### C HM6 ####[facility] (DEFAULT)[address] [place] [address] Chloride [Moles/Vol] 107 mmol/L Normal 98-108 [facility] Comment on above: Performed By: #### C HM6 ####[facility] (DEFAULT)[address] [place] [address] CO2 [Moles/Vol] 25 mmol/L Normal 21-31 [facility] Comment on above: Performed By: #### C HM6 ####[facility] (DEFAULT)[address] [place] [address] Creatinine [Mass/Vol] 1.23 mg/dL Normal 0.70-1.30 [facility] Comment on above: Performed By: #### C HM6 ####[facility] (DEFAULT)[address] [place] [address] GFR/1.73 sq M.predicted among non-blacks MDRD (S/P/Bld) [Vol rate/Area] 70 mL/min/{1.73_m2} Normal >=60 [facility] Comment on above: Result Comment: Repo rted eGFR is based on the CKD-EPI 2020 equation using creatinine, age, and sex. Performed By: #### C HM6 ####[facility] (DEFAULT)[address] [place] [address] Potassium [Moles/Vol] 4.2 mmol/L Normal 3.5-5.0 [facility] Comment on above: Performed By: #### C HM6 ####[facility] (DEFAULT)[address] [place] [address] Sodium [Moles/Vol] 141 mmol/L Normal 135-145 [facility] Comment on above: Performed By: #### C HM6 ####[facility] (DEFAULT)[address] [place] [address] Urea nitrogen [Mass/Vol] 17 mg/dL Normal 7-25 [facility] Comment on above: Performed By: #### C HM6 ####[facility] (DEFAULT)[address] [place] [address] Urea nitrogen/Creatinine [Mass ratio] 14 mg/mg Normal [facility] Comment on above: Performed By: #### C [facility] ####[facility] (DEFAULT)[address] [place] [address] Anion gap [Moles/Vol] 13 mmol/L 7 - 17 mmol/L [facility] Chloride [Moles/Vol] 107 mmol/L 98 - 10 8 mmol/L [facility] CO2 [Moles/Vol] 25 mmol/L 21 - 31 mmol/L [facility] Creatinine [Mass/Vol] 1.23 mg/dL 0.70 - 1.30 mg/dL [facility] eGFR, CKD-EPI, Male 70 - PINF [facility] Comment on above: Reported eGFR is bas ed on the CKD-EPI 2020 equation using creatinine, age, and sex. Potassium [Moles/Vol] 4.2 mmol/L 3.5 - 5.0 mmol/L [facility] Sodium [Moles/Vol] 141 mmol/L 135 - 145 mmol/L [facility] Urea nitrogen [Mass/Vol] 17 mg/dL 7 - 25 mg/dL [facility] Urea nitrogen/Creatinine [Mass ratio] 14 mg/mg [facility] CBC,PLATELETSon 01-23-2024 Hematocrit (Bld) [Volume fraction] 37.0 % Low 39.6-48.8 [facility] Comment on above: Performed By: #### H [facility] ####[facility] (DEFAULT)[address] [place] [address] Hemoglobin (Bld) [Mass/Vol] 12.0 g/dL Low 13.4-16.8 [facility] Comment on above: Performed By: #### H [facility] ####[facility] (DEFAULT)[address] [place] [address] MCV (RBC) [Entitic vol] 88.1 fL Normal 79.0-94.5 [facility] Comment on above: Performed By: #### H EMOGC ####[facility] (DEFAULT)[address] [place] [address] Mean Cell Hgb 28.6 pg Normal 26.1-33.3 [facility] Comment on above: Performed By: #### H EMOGC ####[facility] (DEFAULT)[address] [place] [address] Mean Cell Hgb Conc 32.4 g/dL Normal 31.9-36.5 [facility] Comment on above: Performed By: #### H EMOGC ####[facility] (DEFAULT)[address] [place] [address] Platelet mean volume (Bld) [Entitic vol] 10.4 fL Normal 8.7-12.3 [facility] Comment on above: Performed By: #### H EMOGC ####[facility] (DEFAULT)[address] [place] [address] Platelets (Bld) [#/Vol] 170 10*3/uL Normal 146-337 [facility] Comment on above: Performed By: #### H EMOGC ####[facility] (DEFAULT)[address] [place] [address] RBC (Bld) [#/Vol] 4.20 10*6/uL Low 4.38-5.83 [facility] Comment on above: Performed By: #### H EMOGC ####[facility] (DEFAULT)[address] [place] [address] RBC Distribution 14.2 % Normal 10.9-14.3 [facility] Comment on above: Performed By: #### H EMOGC ####[facility] (DEFAULT)[address] [place] [address] WBC (Bld) [#/Vol] 3.70 10*3/uL Low 3.73-10.10 [facility] Comment on above: Performed By: #### H EMOGC ####[facility] (DEFAULT)[address] [place] [address] Erythrocyte distribution width (RBC) [Ratio] 14.2 % 10.9 - 14.3 % [facility] Hematocrit (Bld) [Volume fraction] 37.0 % Low 39.6 - 48.8 % [facility] Hemoglobin (Bld) [Mass/Vol] 12.0 g/dL Low 13.4 - 16.8 g/dL [facility] Interpretation and review of laboratory results Abnormal [facility] MCH (RBC) [Entitic mass] 28.6 pg 26.1 - 33.3 pg [facility] MCHC (RBC) [Mass/Vol] 32.4 g/dL 31.9 - 36.5 g/dL [facility] MCV (RBC) [Entitic vol] 88.1 fL 79.0 - 94.5 fL [facility] Platelet mean volume (Bld) [Entitic vol] 10.4 fL 8.7 - 12.3 fL [facility] Platelets (Bld) [#/Vol] 170 10*3/uL 146 - 337 K/uL [facility] RBC (Bld) [#/Vol] 4.20 10*6/uL Low [facility] WBC (Bld) [#/Vol] 3.70 10*3/uL Low 3.73 - 10. 10 K/uL [facility] CHEM 7 (LYTES,BUN,CREA,GLUC) on 01-23-2024 Anion gap [Moles/Vol] 14 mmol/L Normal 7-17 [facility] Comment on above: Performed By: #### M NATHANIEL BLOOM, HFP ####[facility] (DEFAULT)[address] [place] [address] Chloride [Moles/Vol] 105 mmol/L Normal 98-108 [facility] Comment on above: Performed By: #### NATHANIEL RAMÍREZ, HFP ####[facility] (DEFAULT)[address] [place] [address] CO2 [Moles/Vol] 25 mmol/L Normal 21-31 [facility] Comment on above: Performed By: #### NATHANIEL RAMÍREZ, HFP ####[facility] (DEFAULT)[address] [place] [address] Creatinine [Mass/Vol] 1.32 mg/dL High 0.70-1.30 [facility] Comment on above: Performed By: #### NATHANIEL RAMÍREZ, HFP ####[facility] (DEFAULT)[address] [place] [address] GFR/1.73 sq M.predicted among non-blacks MDRD (S/P/Bld) [Vol rate/Area] 65 mL/min/{1.73_m2} Normal >=60 [facility] Comment on above: Result Comment: Repo rted eGFR is based on the CKD-EPI 2020 equation using creatinine, age, and sex. Performed By: #### NATHANIEL RAMÍREZ, HFP ####[facility] (DEFAULT)[address] [place] [address] Glucose [Mass/Vol] 94 mg/dL Normal 70-99 [facility] Comment on above: Performed By: #### NATHANIEL RAMÍREZ, HFP ####[facility] (DEFAULT)[address] [place] [address] Osmolality [Osmolality] 296 mosm/kg Normal 278-305 [facility] Comment on above: Performed By: #### NATHNAIEL RAMÍREZ, HFP ####[facility] (DEFAULT)[address] [place] [address] Potassium [Moles/Vol] 3.8 mmol/L Normal 3.5-5.0 [facility] Comment on above: Performed By: #### NATHANIEL RAMÍREZ, HFP ####[facility] (DEFAULT)[address] [place] [address] Sodium [Moles/Vol] 140 mmol/L Normal 135-145 [facility] Comment on above: Performed By: #### M NATHANIEL BLOOM, HFP ####[facility] (DEFAULT)[address] [place] [address] Urea nitrogen [Mass/Vol] 23 mg/dL Normal 7-25 [facility] Comment on above: Performed By: #### M NATHANIEL BLOOM, HFP ####[facility] (DEFAULT)[address] [place] [address] Urea nitrogen/Creatinine [Mass ratio] 17 mg/mg Normal [facility] Comment on above: Performed By: #### NATHANIEL RAMÍREZ, HFP ####[facility] (DEFAULT)[address] [place] [address] Anion gap [Moles/Vol] 14 mmol/L 7 - 17 mmol/L [facility] Chloride [Moles/Vol] 105 mmol/L 98 - 10 8 mmol/L [facility] CO2 [Moles/Vol] 25 mmol/L 21 - 31 mmol/L [facility] Creatinine [Mass/Vol] 1.32 mg/dL High 0.70 - 1.30 mg/dL [facility] eGFR, CKD-EPI, Male 65 - PINF [facility] Comment on above: Reported eGFR is bas ed on the CKD-EPI 2020 equation using creatinine, age, and sex. Glucose [Mass/Vol] 94 mg/dL 70 - 99 mg/dL [facility] Osmolality Calc [Osmolality] 296 [facility] Potassium [Moles/Vol] 3.8 mmol/L 3.5 - 5.0 mmol/L [facility] Sodium [Moles/Vol] 140 mmol/L 135 - 145 mmol/L [facility] Urea nitrogen [Mass/Vol] 23 mg/dL 7 - 25 mg/dL [facility] Urea nitrogen/Creatinine [Mass ratio] 17 mg/mg [facility] GLUCOSE POCon 01-23-2024 Glucose [Mass/Vol] 88 mg/dL 70 - 99 mg/dL [facility] POC Sample Type CAPBL [facility] Test performed at ad dress of the patient encounter. [facility] Glucose [Mass/Vol] 191 mg/dL High 70 - 99 mg/dL [facility] Interpretation and review of laboratory results Abnormal [facility] POC Sample Type CAPBL [facility] Test performed at ad dress of the patient encounter. [facility] HEPATIC FUNCTION PANELon Albumin [Mass/Vol] 3.9 g/dL Normal 3.5-5.0 [facility] Comment on above: Performed By: #### TJ RAMÍREZ7, HFP ####[facility] (DEFAULT)[address] [place] [address] ALP [Catalytic activity/Vol] 83 U/L Normal 32-126 [facility] Comment on above: Performed By: #### Rod BLOOM CHM7, HFP ####[facility] (DEFAULT)[address] [place] [address] ALT [Catalytic activity/Vol] 9 U/L Low 10-52 [facility] Comment on above: Performed By: #### Rod BLOOM CHM7, HFP ####[facility] (DEFAULT)[address] [place] [address] AST [Catalytic activity/Vol] 17 U/L Normal 10-39 [facility] Comment on above: Performed By: #### Rod BLOOM CHM7, HFP ####[facility] (DEFAULT)[address] [place] [address] Bilirubin [Mass/Vol] 1.6 mg/dL High <1.5 [facility] Comment on above: Performed By: #### Rod BLOOM CHM7, HFP ####[facility] (DEFAULT)[address] [place] [address] Bilirubin.indirect [Mass/Vol] 0.4 mg/dL High <0.3 [facility] Comment on above: Performed By: #### M TJ BLOOM7, HFP ####[facility] (DEFAULT)[address] [place] [address] Protein [Mass/Vol] 6.6 g/dL Normal 6.4-8.3 [facility] Comment on above: Performed By: #### M NATHANIEL BLOOM, HFP ####[facility] (DEFAULT)[address] [place] [address] Albumin [Mass/Vol] 3.9 g/dL 3.5 - 5.0 g/dL [facility] ALP [Catalytic activity/Vol] 83 U/L 32 - 126 U/L [facility] ALT [Catalytic activity/Vol] 9 U/L Low 10 - 52 U/L [facility] AST [Catalytic activity/Vol] 17 U/L 10 - 39 U/L [facility] Bilirubin [Mass/Vol] 1.6 mg/dL High NINF - 1.5 mg/dL [facility] Bilirubin.direct [Mass/Vol] 0.4 mg/dL High NINF - 0.3 mg/dL [facility] Protein [Mass/Vol] 6.6 g/dL 6.4 - 8.3 g/dL [facility] ITRACONAZOLE LEVELon 024 Hydroxyitraconazole [Mass/Vol] 7.6 mcg/mL [facility] Comment on above: REFERENCE VALUE No therapeutic range established; activity and serum concentration are similar to parent drug. ADDITIONAL INFORMATION This test was developed and its performance characteristics determined by [facility] in a manner consistent with CLIA requirements. This test has not been cleared or approved by the [place].S. Food and Drug Administration. Test Performed by: [facility] [address] [place] [address] Knife Glazer: Rosendo Bose M.D. Ph.D.; CLIA# [id number] Itraconazole [Mass/Vol] 6.0 mcg/mL [facility] Comment on above: REFERENCE VALUE >0.5 (localized infection), >1.0 (systemic infection) [facility] MAGNESIUMon 01-23-2024 Magnesium [Mass/Vol] 1.8 mg/dL Normal 1.6-2.6 [facility] Comment on above: Performed By: #### M MERLE, M7, [facility] ####[facility] (DEFAULT)[address] [place] [address] Interpretation and review of laboratory results Normal [facility] Magnesium [Mass/Vol] 1.8 mg/dL 1.6 - 2 .6 mg/dL [facility] No Panel Informationon 01-23 Interpretation and review of laboratory results Abnormal [facility] TACROLIMUS LEVEL, TROUGH (OR E DRUG LEVEL)on 01-23-2024 Interpretation and review of laboratory results Normal [facility] Tacrolimus (Bld) [Mass/Vol] 7.0 ng/mL Bone Marrow Transplant: 4.0-12.0, Therapeutic: 5.0-15.0 [facility] Method performed is a chemiluminescent microparticle immunoasssay on the [employer] i2000. The range is based on experience at [facility] and users should be aware that target concentrations vary widely depending on concomitant therapy, time post-transplant, and desired degree of immunosuppression. [facility] Tacrolimus, Trough 7.0 ng/mL Normal Bone Susana ow Transplant: 4.0-12.0, Therapeutic: 5.0-15.0 [facility] Comment on above: Order Comment: Pleas e draw at specified interval PRIOR to dose. Do not hold dose to wait for level. Specimens batched twice per day, (M-F) and once per day weekendsMethod performed is a chemiluminescent microparticle immunoasssay on the Frequent Browser Appraisal Analyst i2000.The range is based on experience at [facility] and users should be aware that target concentrations vary widely depending on concomitant therapy, time post-transplant, and desired degree of immunosuppression. Performed By: #### T ACRO ####[facility] (DEFAULT)[address] [place] [address] CARDIAC RHYTHM (SCANNED)on 0 01-22-2024 [facility] CBC,PLATELETSon 01-22-2024 Hematocrit (Bld) [Volume fraction] 41.5 % Normal 39.6-48.8 [facility] Comment on above: Performed By: #### H EMOGC ####[facility] (DEFAULT)[address] [place] [address], [place] [address] Hemoglobin (Bld) [Mass/Vol] 13.3 g/dL Low 13.4-16.8 [facility] Comment on above: Performed By: #### H EMOGC ####[facility] (DEFAULT)[address] [place] [address], [place] [address] MCV (RBC) [Entitic vol] 86.8 fL Normal 79.0-94.5 [facility] Comment on above: Performed By: #### H EMOGC ####[facility] (DEFAULT)[address] [place] [address] Mean Cell Hgb 27.8 pg Normal 26.1-33.3 [facility] Comment on above: Performed By: #### H EMOGC ####[facility] (DEFAULT)[address] [place] [address], [place] [address] Mean Cell Hgb Conc 32.0 g/dL Normal 31.9-36.5 [facility] Comment on above: Performed By: #### H EMOGC ####[facility] (DEFAULT)[address] [place] [address] Platelet mean volume (Bld) [Entitic vol] 10.5 fL Normal 8.7-12.3 [facility] Comment on above: Performed By: #### H EMO ####[facility] (DEFAULT)[address] [facility] [place] [address] Platelets (Bld) [#/Vol] 186 10*3/uL Normal 146-337 [facility] Comment on above: Performed By: #### H EMO ####[facility] (DEFAULT)[address] [facility] [place] [address] RBC (Bld) [#/Vol] 4.78 10*6/uL Normal 4.38-5.83 [facility] Comment on above: Performed By: #### H EMO ####[facility] (DEFAULT)[address] [facility] [place] [address] RBC Distribution 14.1 % Normal 10.9-14.3 [facility] Comment on above: Performed By: #### H EMO ####[facility] (DEFAULT)[address] [facility] [place] [address] WBC (Bld) [#/Vol] 3.74 10*3/uL Normal 3.73-10.10 [facility] Comment on above: Performed By: #### H EMO ####[facility] (DEFAULT)[address] [place] [address] Erythrocyte distribution width (RBC) [Ratio] 14.1 % 10.9 - 14.3 % [facility] Hematocrit (Bld) [Volume fraction] 41.5 % 39.6 - 48.8 % [facility] Hemoglobin (Bld) [Mass/Vol] 13.3 g/dL Low 13.4 - 16.8 g/dL [facility] Interpretation and review of laboratory results Abnormal [facility] MCH (RBC) [Entitic mass] 27.8 pg 26.1 - 33.3 pg [facility] MCHC (RBC) [Mass/Vol] 32.0 g/dL 31.9 - 36.5 g/dL [facility] MCV (RBC) [Entitic vol] 86.8 fL 79.0 - 94.5 fL [facility] Platelet mean volume (Bld) [Entitic vol] 10.5 fL 8.7 - 12.3 fL [facility] Platelets (Bld) [#/Vol] 186 10*3/uL 146 - 337 K/uL [facility] RBC (Bld) [#/Vol] 4.78 10*6/uL [facility] WBC (Bld) [#/Vol] 3.74 10*3/uL 3.73 - 10. 10 K/uL [facility] CHEM 7 (LYTES,BUN,CREA,GLUC) on 01-22-2024 Anion gap [Moles/Vol] 13 mmol/L Normal 7-17 [facility] Comment on above: Performed By: #### NATHANIEL RAMÍREZ ####[facility] (DEFAULT)[address] [place] [address] Chloride [Moles/Vol] 109 mmol/L High 98-108 [facility] Comment on above: Performed By: #### NATHANIEL RAMÍREZ ####[facility] (DEFAULT)[address] [facility] [place] [address] CO2 [Moles/Vol] 23 mmol/L Normal 21-31 [facility] Comment on above: Performed By: #### NATHANIEL RAMÍREZ ####[facility] (DEFAULT)[address] [facility] [place] [address] Creatinine [Mass/Vol] 1.10 mg/dL Normal 0.70-1.30 [facility] Comment on above: Performed By: #### TJ RAMÍREZ7 ####[facility] (DEFAULT)[address] [place] [address] GFR/1.73 sq M.predicted among non-blacks MDRD (S/P/Bld) [Vol rate/Area] 81 mL/min/{1.73_m2} Normal >=60 [facility] Comment on above: Result Comment: Repo rted eGFR is based on the CKD-EPI 2020 equation using creatinine, age, and sex. Performed By: #### Rod BLOOM CHM7 ####[facility] (DEFAULT)[address] [place] [address] Glucose [Mass/Vol] 84 mg/dL Normal 70-99 [facility] Comment on above: Performed By: #### Rod BLOOM CHM7 ####[facility] (DEFAULT)[address] [place] [address] Osmolality [Osmolality] 295 mosm/kg Normal 278-305 [facility] Comment on above: Performed By: #### Rod BLOOM CHM7 ####[facility] (DEFAULT)[address] [place] [address] Potassium [Moles/Vol] 4.0 mmol/L Normal 3.5-5.0 [facility] Comment on above: Performed By: #### Rod BLOOM CHM7 ####[facility] (DEFAULT)[address] [place] [address] Sodium [Moles/Vol] 141 mmol/L Normal 135-145 [facility] Comment on above: Performed By: #### Rod BLOOM CHM7 ####[facility] (DEFAULT)[address] [place] [address] Urea nitrogen [Mass/Vol] 16 mg/dL Normal 7-25 [facility] Comment on above: Performed By: #### Rod BLOOM CHM7 ####[facility] (DEFAULT)[address] [place] [address] Urea nitrogen/Creatinine [Mass ratio] 15 mg/mg Normal [facility] Comment on above: Performed By: #### Rod BLOOM CHM7 ####[facility] (DEFAULT)[address] [place] [address] Anion gap [Moles/Vol] 13 mmol/L 7 - 17 mmol/L [facility] Chloride [Moles/Vol] 109 mmol/L High 98 - 10 8 mmol/L [facility] CO2 [Moles/Vol] 23 mmol/L 21 - 31 mmol/L [facility] Creatinine [Mass/Vol] 1.10 mg/dL 0.70 - 1.30 mg/dL [facility] eGFR, CKD-EPI, Male 81 - PINF [facility] Comment on above: Reported eGFR is bas ed on the CKD-EPI 2020 equation using creatinine, age, and sex. Glucose [Mass/Vol] 84 mg/dL 70 - 99 mg/dL [facility] Interpretation and review of laboratory results Abnormal [facility] Osmolality Calc [Osmolality] 295 [facility] Potassium [Moles/Vol] 4.0 mmol/L 3.5 - 5.0 mmol/L [facility] Sodium [Moles/Vol] 141 mmol/L 135 - 145 mmol/L [facility] Urea nitrogen [Mass/Vol] 16 mg/dL 7 - 25 mg/dL [facility] Urea nitrogen/Creatinine [Mass ratio] 15 mg/mg [facility] MAGNESIUMon 01-22-2024 Magnesium [Mass/Vol] 2.0 mg/dL Normal 1.6-2.6 [facility] Comment on above: Performed By: #### M , M7 ####[facility] (DEFAULT)[address] [place] [address] Interpretation and review of laboratory results Normal [facility] Magnesium [Mass/Vol] 2.0 mg/dL 1.6 - 2 .6 mg/dL [facility] No Panel Informationon 01-22 [facility] PT,INR,PTTon 01-22-2024 aPTT Coag (Bld) [Time] 29.2 s Normal 24.0-34.3 [facility] Comment on above: Performed By: #### P TPTT ####[facility] (DEFAULT)[address] [place] [address] INR Coag (PPP) [Relative time] 1.1 {INR} Normal 0.9-1.1 [facility] Comment on above: Performed By: #### P TPTT ####[facility] (DEFAULT)[address] [place] [address] PT Coag (PPP) [Time] 14.3 s High 11.9-14.2 [facility] Comment on above: Performed By: #### P TPTT ####[facility] (DEFAULT)[address] [place] [address] aPTT Coag (PPP) [Time] 29.2 s [facility] INR Coag (Bld) [Relative time] 1.1 {INR} 0.9 - 1.1 [facility] Interpretation and review of laboratory results Abnormal [facility] PT Coag (PPP) [Time] 14.3 s High [facility] TACROLIMUS LEVEL, TROUGH (OR E DRUG LEVEL)Ordered By: Sheree Jensen on 01-22-2024 Interpretation and review of laboratory results Normal [facility] Tacrolimus (Bld) [Mass/Vol] 7.9 ng/mL Bone Marrow Transplant: 4.0-12.0, Therapeutic: 5.0-15.0 [facility] Method performed is a chemiluminescent microparticle immunoasssay on the [employer] Appraisal Analyst i2000. The range is based on experience at [facility] and users should be aware that target concentrations vary widely depending on concomitant therapy, time post-transplant, and desired degree of immunosuppression. [facility] TACROLIMUS LEVEL, TROUGH (OR E DRUG LEVEL)on 01-22-2024 Tacrolimus, Trough 7.9 ng/mL Normal Bone Susana ow Transplant: 4.0-12.0, Therapeutic: 5.0-15.0 [facility] Comment on above: Order Comment: Pleas e draw at specified interval PRIOR to dose. Do not hold dose to wait for level. Specimens batched twice per day, (M-F) and once per day weekendsMethod performed is a chemiluminescent microparticle immunoasssay on the [employer] Appraisal Analyst i2000.The range is based on experience at [facility] and users should be aware that target concentrations vary widely depending on concomitant therapy, time post-transplant, and desired degree of immunosuppression. Performed By: #### T ACRO ####[facility] (DEFAULT)[address] [place] [address] TYPE AND SCREENon 01-22-2024 ABO/RH(D) TYPE Positive [facility] ABO/RH(D) TYPE Positive Normal [facility] Comment on above: Performed By: #### X M ####[facility] (DEFAULT)[address] [place] [address], [place] [address] [place] Unspecified body regionOr dered By: Unassigned Pacs on 01-22-2024 [facility] Work Phone: [place] Unspecified body regionon 01-22-2024 Radiology Study observation (narrative) [facility] CBC,PLATELETSon 01-21-2024 Hematocrit (Bld) [Volume fraction] 39.4 % Low 39.6-48.8 [facility] Comment on above: Performed By: #### H EMOGC ####[facility] (DEFAULT)[address] [place] [address], [place] [address] Hemoglobin (Bld) [Mass/Vol] 12.7 g/dL Low 13.4-16.8 [facility] Comment on above: Performed By: #### H EMOGC ####[facility] (DEFAULT)[address] [place] [address], [place] [address] MCV (RBC) [Entitic vol] 87.0 fL Normal 79.0-94.5 [facility] Comment on above: Performed By: #### H EMOGC ####[facility] (DEFAULT)[address] [place] [address] Mean Cell Hgb 28.0 pg Normal 26.1-33.3 [facility] Comment on above: Performed By: #### H EMOGC ####[facility] (DEFAULT)[address] [place] [address] Mean Cell Hgb Conc 32.2 g/dL Normal 31.9-36.5 [facility] Comment on above: Performed By: #### H EMOGC ####[facility] (DEFAULT)[address] [place] [address] Platelet mean volume (Bld) [Entitic vol] 10.2 fL Normal 8.7-12.3 [facility] Comment on above: Performed By: #### H EMOGC ####[facility] (DEFAULT)[address] [place] [address] Platelets (Bld) [#/Vol] 157 10*3/uL Normal 146-337 [facility] Comment on above: Performed By: #### H EMO ####[facility] (DEFAULT)[address] [place] [address] RBC (Bld) [#/Vol] 4.53 10*6/uL Normal 4.38-5.83 [facility] Comment on above: Performed By: #### H EMOGC ####[facility] (DEFAULT)[address] [place] [address] RBC Distribution 14.0 % Normal 10.9-14.3 [facility] Comment on above: Performed By: #### H EMOGC ####[facility] (DEFAULT)[address] [place] [address] WBC (Bld) [#/Vol] 3.42 10*3/uL Low 3.73-10.10 [facility] Comment on above: Performed By: #### H EMOGC ####[facility] (DEFAULT)[address] [place] [address] Erythrocyte distribution width (RBC) [Ratio] 14.0 % 10.9 - 14.3 % [facility] Hematocrit (Bld) [Volume fraction] 39.4 % Low 39.6 - 48.8 % [facility] Hemoglobin (Bld) [Mass/Vol] 12.7 g/dL Low 13.4 - 16.8 g/dL [facility] Interpretation and review of laboratory results Abnormal [facility] MCH (RBC) [Entitic mass] 28.0 pg 26.1 - 33.3 pg [facility] MCHC (RBC) [Mass/Vol] 32.2 g/dL 31.9 - 36.5 g/dL [facility] MCV (RBC) [Entitic vol] 87.0 fL 79.0 - 94.5 fL [facility] Platelet mean volume (Bld) [Entitic vol] 10.2 fL 8.7 - 12.3 fL [facility] Platelets (Bld) [#/Vol] 157 10*3/uL 146 - 337 K/uL [facility] RBC (Bld) [#/Vol] 4.53 10*6/uL [facility] WBC (Bld) [#/Vol] 3.42 10*3/uL Low 3.73 - 10. 10 K/uL [facility] CHEM 7 (LYTES,BUN,CREA,GLUC) on 01-21-2024 Anion gap [Moles/Vol] 12 mmol/L Normal 7-17 [facility] Comment on above: Performed By: #### NATHANIEL RAMÍREZ ####[facility] (DEFAULT)[address] [address] Chloride [Moles/Vol] 107 mmol/L Normal 98-108 [facility] Comment on above: Performed By: #### NATHANIEL RAMÍREZ ####[facility] (DEFAULT)[address] [address] CO2 [Moles/Vol] 26 mmol/L Normal 21-31 [facility] Comment on above: Performed By: #### NATHANIEL RAMÍREZ ####[facility] (DEFAULT)[address] [place] [address] Creatinine [Mass/Vol] 1.11 mg/dL Normal 0.70-1.30 [facility] Comment on above: Performed By: #### TJ RAMÍREZ7 ####[facility] (DEFAULT)[address] [place] [address] GFR/1.73 sq M.predicted among non-blacks MDRD (S/P/Bld) [Vol rate/Area] 80 mL/min/{1.73_m2} Normal >=60 [facility] Comment on above: Result Comment: Repo rted eGFR is based on the CKD-EPI 2020 equation using creatinine, age, and sex. Performed By: #### TJ RAMÍREZ7 ####[facility] (DEFAULT)[address] [place] [address] Glucose [Mass/Vol] 93 mg/dL Normal 70-99 [facility] Comment on above: Performed By: #### NATHANIEL RAMÍREZ ####[facility] (DEFAULT)[address] [place] [address] Osmolality [Osmolality] 295 mosm/kg Normal 278-305 [facility] Comment on above: Performed By: #### TJ RAMÍREZ7 ####[facility] (DEFAULT)[address] [place] [address] Potassium [Moles/Vol] 3.9 mmol/L Normal 3.5-5.0 [facility] Comment on above: Performed By: #### TJ RAMÍREZ7 ####[facility] (DEFAULT)[address] [place] [address] Sodium [Moles/Vol] 141 mmol/L Normal 135-145 [facility] Comment on above: Performed By: #### Rod BLOOM CHM7 ####[facility] (DEFAULT)[address] [place] [address] Urea nitrogen [Mass/Vol] 15 mg/dL Normal 7-25 [facility] Comment on above: Performed By: #### M HELEN BLOOMM7 ####[facility] (DEFAULT)[address] [place] [address] Urea nitrogen/Creatinine [Mass ratio] 14 mg/mg Normal [facility] Comment on above: Performed By: #### M HELEN BLOOMM7 ####[facility] (DEFAULT)[address] [place] [address] Anion gap [Moles/Vol] 12 mmol/L 7 - 17 mmol/L [facility] Chloride [Moles/Vol] 107 mmol/L 98 - 10 8 mmol/L [facility] CO2 [Moles/Vol] 26 mmol/L 21 - 31 mmol/L [facility] Creatinine [Mass/Vol] 1.11 mg/dL 0.70 - 1.30 mg/dL [facility] eGFR, CKD-EPI, Male 80 - PINF [facility] Comment on above: Reported eGFR is bas ed on the CKD-EPI 2020 equation using creatinine, age, and sex. Glucose [Mass/Vol] 93 mg/dL 70 - 99 mg/dL [facility] Osmolality Calc [Osmolality] 295 [facility] Potassium [Moles/Vol] 3.9 mmol/L 3.5 - 5.0 mmol/L [facility] Sodium [Moles/Vol] 141 mmol/L 135 - 145 mmol/L [facility] Urea nitrogen [Mass/Vol] 15 mg/dL 7 - 25 mg/dL [facility] Urea nitrogen/Creatinine [Mass ratio] 14 mg/mg [facility] Cardiac catheterization stud yOrdered By: Kelvin Donohue on 01-21-2024 Body surface area Derived from formula 2.08 m2 [facility] Work Phone: [facility] Work Phone: Cardiac catheterization stud yon [...] with fistula occlusion Kelvin Donohue MD, MPH Import Dispatcher of Internal Medicine. Section of Advanced Heart Failure and Transplantation Division of Cardiovascular Diseases [facility] [email or web address] INVASIVE CARDIOVASCULAR PROC EDUREon 01-21-2024 INVASIVE CARDIOVASCULAR PROCEDURE Normal [facility] MAGNESIUMon 01-21-2024 Magnesium [Mass/Vol] 1.5 mg/dL Low 1.6-2.6 [facility] Comment on above: Performed By: #### M [facility] ####[facility] (DEFAULT)[address] [place] [address] Interpretation and review of laboratory results Abnormal [facility] Magnesium [Mass/Vol] 1.5 mg/dL Low 1.6 - 2 .6 mg/dL [facility] No Panel Informationon 01-21 [facility] TACROLIMUS LEVEL, TROUGH (OR E DRUG LEVEL)on 01-21-2024 Interpretation and review of laboratory results Normal [facility] Tacrolimus (Bld) [Mass/Vol] 7.2 ng/mL Bone Marrow Transplant: 4.0-12.0, Therapeutic: 5.0-15.0 [facility] Method performed is a chemiluminescent microparticle immunoasssay on the Frequent Browser Appraisal Analyst i2000. The range is based on experience at [facility] and users should be aware that target concentrations vary widely depending on concomitant therapy, time post-transplant, and desired degree of immunosuppression. [facility] Tacrolimus, Trough 7.2 ng/mL Normal Bone Susana ow Transplant: 4.0-12.0, Therapeutic: 5.0-15.0 [facility] Comment on above: Order Comment: Pleas e draw at specified interval PRIOR to dose. Do not hold dose to wait for level. Specimens batched twice per day, (M-F) and once per day weekendsMethod performed is a chemiluminescent microparticle immunoasssay on the [employer] App[employer] Analyst i2000.The range is based on experience at [facility] and users should be aware that target concentrations vary widely depending on concomitant therapy, time post-transplant, and desired degree of immunosuppression. Performed By: #### T ACRO ####[facility] (DEFAULT)[address] [place] [address] CBC,PLATELETSon 01-20-2024 Hematocrit (Bld) [Volume fraction] 38.9 % Low 39.6-48.8 [facility] Comment on above: Performed By: #### H EMO ####[facility] (DEFAULT)[address] [place] [address] Hemoglobin (Bld) [Mass/Vol] 12.5 g/dL Low 13.4-16.8 [facility] Comment on above: Performed By: #### H EMOGC ####[facility] (DEFAULT)[address] [place] [address] MCV (RBC) [Entitic vol] 87.2 fL Normal 79.0-94.5 [facility] Comment on above: Performed By: #### H EMOGC ####[facility] (DEFAULT)[address] [place] [address] Mean Cell Hgb 28.0 pg Normal 26.1-33.3 [facility] Comment on above: Performed By: #### H EMOGC ####[facility] (DEFAULT)[address] [place] [address] Mean Cell Hgb Conc 32.1 g/dL Normal 31.9-36.5 [facility] Comment on above: Performed By: #### H EMO ####[facility] (DEFAULT)[address] [place] [address] Platelet mean volume (Bld) [Entitic vol] 10.2 fL Normal 8.7-12.3 [facility] Comment on above: Performed By: #### H EMOGC ####[facility] (DEFAULT)[address] [facility] [place] [address] Platelets (Bld) [#/Vol] 166 10*3/uL Normal 146-337 [facility] Comment on above: Performed By: #### H EMOGC ####[facility] (DEFAULT)[address] [place] [address] RBC (Bld) [#/Vol] 4.46 10*6/uL Normal 4.38-5.83 [facility] Comment on above: Performed By: #### H EMO ####[facility] (DEFAULT)[address] [place] [address] RBC Distribution 13.8 % Normal 10.9-14.3 [facility] Comment on above: Performed By: #### H EMOGC ####[facility] (DEFAULT)[address] [place] [address] WBC (Bld) [#/Vol] 3.79 10*3/uL Normal 3.73-10.10 [facility] Comment on above: Performed By: #### H EMOGC ####[facility] (DEFAULT)[address] [place] [address] Erythrocyte distribution width (RBC) [Ratio] 13.8 % 10.9 - 14.3 % [facility] Hematocrit (Bld) [Volume fraction] 38.9 % Low 39.6 - 48.8 % [facility] Hemoglobin (Bld) [Mass/Vol] 12.5 g/dL Low 13.4 - 16.8 g/dL [facility] Interpretation and review of laboratory results Abnormal [facility] MCH (RBC) [Entitic mass] 28.0 pg 26.1 - 33.3 pg [facility] MCHC (RBC) [Mass/Vol] 32.1 g/dL 31.9 - 36.5 g/dL [facility] MCV (RBC) [Entitic vol] 87.2 fL 79.0 - 94.5 fL [facility] Platelet mean volume (Bld) [Entitic vol] 10.2 fL 8.7 - 12.3 fL [facility] Platelets (Bld) [#/Vol] 166 10*3/uL 146 - 337 K/uL [facility] RBC (Bld) [#/Vol] 4.46 10*6/uL [facility] WBC (Bld) [#/Vol] 3.79 10*3/uL 3.73 - 10. 10 K/uL [facility] CHEM 7 (LYTES,BUN,CREA,GLUC) on 01-20-2024 Anion gap [Moles/Vol] 12 mmol/L Normal 7-17 [facility] Comment on above: Performed By: #### TAVO RAMÍREZ, CHM7 ####[facility] (DEFAULT)[address] [place] [address] Chloride [Moles/Vol] 105 mmol/L Normal 98-108 [facility] Comment on above: Performed By: #### TAVO RAMÍREZ, CHM7 ####[facility] (DEFAULT)[address] [place] [address] CO2 [Moles/Vol] 28 mmol/L Normal 21-31 [facility] Comment on above: Performed By: #### TAVO RAMÍREZ, CHM7 ####[facility] (DEFAULT)[address] [place] [address] Creatinine [Mass/Vol] 1.12 mg/dL Normal 0.70-1.30 [facility] Comment on above: Performed By: #### TAVO RAMÍREZ CHM7 ####[facility] (DEFAULT)[address] [place] [address] GFR/1.73 sq M.predicted among non-blacks MDRD (S/P/Bld) [Vol rate/Area] 79 mL/min/{1.73_m2} Normal >=60 [facility] Comment on above: Result Comment: Repo rted eGFR is based on the CKD-EPI 2020 equation using creatinine, age, and sex. Performed By: #### TAVO RAMÍREZ CHM7 ####[facility] (DEFAULT)[address] [place] [address] Glucose [Mass/Vol] 88 mg/dL Normal 70-99 [facility] Comment on above: Performed By: #### TAVO RAMÍREZ CHM7 ####[facility] (DEFAULT)[address] [place] [address] Osmolality [Osmolality] 294 mosm/kg Normal 278-305 [facility] Comment on above: Performed By: #### TAVO RAMÍREZ, CHM7 ####[facility] (DEFAULT)[address] [place] [address] Potassium [Moles/Vol] 3.8 mmol/L Normal 3.5-5.0 [facility] Comment on above: Performed By: #### TAVO RAMÍREZ, CHM7 ####[facility] (DEFAULT)[address] [place] [address] Sodium [Moles/Vol] 141 mmol/L Normal 135-145 [facility] Comment on above: Performed By: #### TAVO RAMÍREZ, CHM7 ####[facility] (DEFAULT)[address] [place] [address] Urea nitrogen [Mass/Vol] 15 mg/dL Normal 7-25 [facility] Comment on above: Performed By: #### TAVO RAMÍREZ CHM7 ####[facility] (DEFAULT)[address] [place] [address] Urea nitrogen/Creatinine [Mass ratio] 13 mg/mg Normal [facility] Comment on above: Performed By: #### M TAVO BLOOM, CHM7 ####[facility] (DEFAULT)[address] [place] [address] Anion gap [Moles/Vol] 12 mmol/L 7 - 17 mmol/L [facility] Chloride [Moles/Vol] 105 mmol/L 98 - 10 8 mmol/L [facility] CO2 [Moles/Vol] 28 mmol/L 21 - 31 mmol/L [facility] Creatinine [Mass/Vol] 1.12 mg/dL 0.70 - 1.30 mg/dL [facility] eGFR, CKD-EPI, Male 79 - PINF [facility] Comment on above: Reported eGFR is bas ed on the CKD-EPI 2020 equation using creatinine, age, and sex. Glucose [Mass/Vol] 88 mg/dL 70 - 99 mg/dL [facility] Osmolality Calc [Osmolality] 294 [facility] Potassium [Moles/Vol] 3.8 mmol/L 3.5 - 5.0 mmol/L [facility] Sodium [Moles/Vol] 141 mmol/L 135 - 145 mmol/L [facility] Urea nitrogen [Mass/Vol] 15 mg/dL 7 - 25 mg/dL [facility] Urea nitrogen/Creatinine [Mass ratio] 13 mg/mg [facility] Cardiac catheterization stud yon 01-20-2024 [facility] Radiology Study observation (narrative) [facility] Radiology Study observation (narrative) [facility] EBV BY PCR, QUANTITATIVE,BLO ODOrdered By: Charlotte Jensen on 01-20-2024 EBV DNA ESTELITA+probe (Unsp spec) [#/Vol] NINF [facility] Interpretation and review of laboratory results Normal [facility] This test was perfor med using a real time PCR assay. The dynamic range for this assay is 1000-5,000,000 IU/mL. A result <1000 IU/mL does not rule out the presence of EBV DNA in quantities below the sensitivity of this assay. This test was developed and its performance characteristics determined by [facility] at [facility]. It has not been cleared or approved by the FDA. The laboratory is regulated under CLIA as qualified to perform high-complexity testing. This test is used for clinical purposes. It should not be regarded as investigational or for research. [facility] HEPATIC FUNCTION PANELon Albumin [Mass/Vol] 3.7 g/dL Normal 3.5-5.0 [facility] Comment on above: Performed By: #### TAVO RAMÍREZ, CHM7 ####[facility] (DEFAULT)[address] [place] [address] ALP [Catalytic activity/Vol] 73 U/L Normal 32-126 [facility] Comment on above: Performed By: #### TAVO RAMÍREZ, CHM7 ####[facility] (DEFAULT)[address] [place] [address] ALT [Catalytic activity/Vol] 12 U/L Normal 10-52 [facility] Comment on above: Performed By: #### TAVO RAMÍREZ, CHM7 ####[facility] (DEFAULT)[address] [place] [address] AST [Catalytic activity/Vol] 19 U/L Normal 10-39 [facility] Comment on above: Performed By: #### TAVO RAMÍREZ, CHM7 ####[facility] (DEFAULT)[address] [place] [address] Bilirubin [Mass/Vol] 2.1 mg/dL High <1.5 [facility] Comment on above: Performed By: #### TAVO RAMÍREZ, CHM7 ####[facility] (DEFAULT)[address] [place] [address] Bilirubin.indirect [Mass/Vol] 0.5 mg/dL High <0.3 [facility] Comment on above: Performed By: #### M TAVO BLOOM, CHM7 ####[facility] (DEFAULT)[address] [place] [address] Protein [Mass/Vol] 6.1 g/dL Low 6.4-8.3 [facility] Comment on above: Performed By: #### M TAVO BLOOM, CHM7 ####[facility] (DEFAULT)[address] [place] [address] Albumin [Mass/Vol] 3.7 g/dL 3.5 - 5.0 g/dL [facility] ALP [Catalytic activity/Vol] 73 U/L 32 - 126 U/L [facility] ALT [Catalytic activity/Vol] 12 U/L 10 - 52 U/L [facility] AST [Catalytic activity/Vol] 19 U/L 10 - 39 U/L [facility] Bilirubin [Mass/Vol] 2.1 mg/dL High NINF - 1.5 mg/dL [facility] Bilirubin.direct [Mass/Vol] 0.5 mg/dL High NINF - 0.3 mg/dL [facility] Interpretation and review of laboratory results Abnormal [facility] Protein [Mass/Vol] 6.1 g/dL Low 6.4 - 8.3 g/dL [facility] ITRACONAZOLE LEVELon 024 Hydroxyitraconazole 7.6 mcg/mL Normal [facility] Comment on above: Order Comment: Dilan gregory draw level at specified interval PRIOR to dose. Result Comment: ---- REFERENCE VALUE No therapeutic range established; activity and serumconcentration are similar to parent drug. ADDITIONAL INFORMATION This test was developed and its performance characteristicsdetermined by [facility] in a manner consistent with CLIArequirements. This test has not been cleared or approved bythe U.S. Food and Drug Administration.Test Performed by:[facility] [place] [id number] Director: Rosendo Bose M.D. Ph.D.; CLIA# [id number] Performed By: #### Y ITCON ####[facility] (DEFAULT)[address] [place] [address] Itraconazole 6.0 mcg/mL Normal [facility] Comment on above: Order Comment: Pleas e draw level at specified interval PRIOR to dose. Result Comment: ---- REFERENCE VALUE-------------------------->0.5 (localized infection), >1.0 (systemic infection) Performed By: #### Y ITCON ####[facility] (DEFAULT)[address] [place] [address] MAGNESIUMon 01-20-2024 Magnesium [Mass/Vol] 1.6 mg/dL Normal 1.6-2.6 [facility] Comment on above: Performed By: #### M MERLE, [facility], CHM7 ####[facility] (DEFAULT)[address] [place] [address] Interpretation and review of laboratory results Normal [facility] Magnesium [Mass/Vol] 1.6 mg/dL 1.6 - 2 .6 mg/dL [facility] No Panel Informationon 01-20 [facility] POCT CO-OXIMETRYon Hemoglobin (Bld) [Mass/Vol] 12.8 g/dL Low 13.4 - 16.8 g/dL [facility] Interpretation and review of laboratory results Abnormal [facility] Oxyhemoglobin 69 % Low 94 - 98 % [facility] Ordering physician notified. Test performed at address of the patient encounter. [facility] Hemoglobin (Bld) [Mass/Vol] 13.3 g/dL Low 13.4 - 16.8 g/dL [facility] Interpretation and review of laboratory results Abnormal [facility] Oxyhemoglobin 69 % Low 94 - 98 % [facility] Ordering physician notified. Test performed at address of the patient encounter. [facility] PT,INR,PTTon 01-20-2024 aPTT Coag (Bld) [Time] 30.6 s Normal 24.0-34.3 [facility] Comment on above: Performed By: #### P TPTT ####[facility] (DEFAULT)[address] [place] [address] INR Coag (PPP) [Relative time] 1.2 {INR} High 0.9-1.1 [facility] Comment on above: Performed By: #### P TPTT ####[facility] (DEFAULT)[address] [place] [address] PT Coag (PPP) [Time] 15.5 s High 11.9-14.2 [facility] Comment on above: Performed By: #### P TPTT ####[facility] (DEFAULT)[address] [place] [address] aPTT Coag (PPP) [Time] 30.6 s [facility] INR Coag (Bld) [Relative time] 1.2 {INR} High 0.9 - 1.1 [facility] Interpretation and review of laboratory results Abnormal [facility] PT Coag (PPP) [Time] 15.5 s High [facility] TACROLIMUS LEVEL, TROUGH (OR E DRUG LEVEL)Ordered By: Yanira Marcum on 01-20-2024 Interpretation and review of laboratory results Normal [facility] Tacrolimus (Bld) [Mass/Vol] 7.7 ng/mL Bone Marrow Transplant: 4.0-12.0, Therapeutic: 5.0-15.0 [facility] Method performed is a chemiluminescent microparticle immunoasssay on the [employer] i2000. The range is based on experience at [facility] and users should be aware that target concentrations vary widely depending on concomitant therapy, time post-transplant, and desired degree of immunosuppression. [facility] TACROLIMUS LEVEL, TROUGH (OR E DRUG LEVEL)on 01-20-2024 Tacrolimus, Trough 7.7 ng/mL Normal Bone Susana ow Transplant: 4.0-12.0, Therapeutic: 5.0-15.0 [facility] Comment on above: Order Comment: Pleas e draw at specified interval PRIOR to dose. Do not hold dose to wait for level. Specimens batched twice per day, (M-) and once per day weekendsMethod performed is a chemiluminescent microparticle immunoasssay on the [employer] i2000.The range is based on experience at [facility] and users should be aware that target concentrations vary widely depending on concomitant therapy, time post-transplant, and desired degree of immunosuppression. Performed By: #### T ACRO ####[facility] (DEFAULT)[address] [place] [address] CBC,PLATELETSon 01-19-2024 Hematocrit (Bld) [Volume fraction] 37.5 % Low 39.6-48.8 [facility] Comment on above: Performed By: #### [facility] ####[facility] (DEFAULT)[address] [place] [address] Hemoglobin (Bld) [Mass/Vol] 12.1 g/dL Low 13.4-16.8 [facility] Comment on above: Performed By: #### [facility] ####[facility] (DEFAULT)[address] [place] [address] MCV (RBC) [Entitic vol] 87.8 fL Normal 79.0-94.5 [facility] Comment on above: Performed By: #### H EMO ####[facility] (DEFAULT)[address] [place] [address] Mean Cell Hgb 28.3 pg Normal 26.1-33.3 [facility] Comment on above: Performed By: #### H EMOGC ####[facility] (DEFAULT)[address] [place] [address] Mean Cell Hgb Conc 32.3 g/dL Normal 31.9-36.5 [facility] Comment on above: Performed By: #### H EMOGC ####[facility] (DEFAULT)[address] [place] [address] Platelet mean volume (Bld) [Entitic vol] 10.4 fL Normal 8.7-12.3 [facility] Comment on above: Performed By: #### H EMOGC ####[facility] (DEFAULT)[address] [place] [address] Platelets (Bld) [#/Vol] 163 10*3/uL Normal 146-337 [facility] Comment on above: Performed By: #### H EMO ####[facility] (DEFAULT)[address] [place] [address] RBC (Bld) [#/Vol] 4.27 10*6/uL Low 4.38-5.83 [facility] Comment on above: Performed By: #### H EMOGC ####[facility] (DEFAULT)[address] [place] [address] RBC Distribution 13.9 % Normal 10.9-14.3 [facility] Comment on above: Performed By: #### H EMOGC ####[facility] (DEFAULT)[address] [place] [address] WBC (Bld) [#/Vol] 3.69 10*3/uL Low 3.73-10.10 [facility] Comment on above: Performed By: #### H EMOGC ####[facility] (DEFAULT)[address] [place] [address] Erythrocyte distribution width (RBC) [Ratio] 13.9 % 10.9 - 14.3 % [facility] Hematocrit (Bld) [Volume fraction] 37.5 % Low 39.6 - 48.8 % [facility] Hemoglobin (Bld) [Mass/Vol] 12.1 g/dL Low 13.4 - 16.8 g/dL [facility] Interpretation and review of laboratory results Abnormal [facility] MCH (RBC) [Entitic mass] 28.3 pg 26.1 - 33.3 pg [facility] MCHC (RBC) [Mass/Vol] 32.3 g/dL 31.9 - 36.5 g/dL [facility] MCV (RBC) [Entitic vol] 87.8 fL 79.0 - 94.5 fL [facility] Platelet mean volume (Bld) [Entitic vol] 10.4 fL 8.7 - 12.3 fL [facility] Platelets (Bld) [#/Vol] 163 10*3/uL 146 - 337 K/uL [facility] RBC (Bld) [#/Vol] 4.27 10*6/uL Low [facility] WBC (Bld) [#/Vol] 3.69 10*3/uL Low 3.73 - 10. 10 K/uL [facility] CHEM 7 (LYTES,BUN,CREA,GLUC) on 01-19-2024 Anion gap [Moles/Vol] 14 mmol/L Normal 7-17 [facility] Comment on above: Performed By: #### NATHANIEL RAMÍREZ ####[facility] (DEFAULT)[address] [place] [address] Chloride [Moles/Vol] 106 mmol/L Normal 98-108 [facility] Comment on above: Performed By: ###NATHANIEL HERNANDEZ ####[facility] (DEFAULT)[address] [place] [address] CO2 [Moles/Vol] 24 mmol/L Normal 21-31 [facility] Comment on above: Performed By: ###TJ HERNANDEZ7 ####[facility] (DEFAULT)[address] [place] [address] Creatinine [Mass/Vol] 1.13 mg/dL Normal 0.70-1.30 [facility] Comment on above: Performed By: #### Rod BLOOM CHM7 ####[facility] (DEFAULT)[address] [place] [address] GFR/1.73 sq M.predicted among non-blacks MDRD (S/P/Bld) [Vol rate/Area] 78 mL/min/{1.73_m2} Normal >=60 [facility] Comment on above: Result Comment: Repo rted eGFR is based on the CKD-EPI 2020 equation using creatinine, age, and sex. Performed By: #### Rod BLOOM CHM7 ####[facility] (DEFAULT)[address] [place] [address] Glucose [Mass/Vol] 86 mg/dL Normal 70-99 [facility] Comment on above: Performed By: #### Rod BLOOM CHM7 ####[facility] (DEFAULT)[address] [place] [address] Osmolality [Osmolality] 293 mosm/kg Normal 278-305 [facility] Comment on above: Performed By: #### Rod BLOOM CHM7 ####[facility] (DEFAULT)[address] [place] [address] Potassium [Moles/Vol] 3.8 mmol/L Normal 3.5-5.0 [facility] Comment on above: Performed By: #### Rod BLOOM CHM7 ####[facility] (DEFAULT)[address] [place] [address] Sodium [Moles/Vol] 140 mmol/L Normal 135-145 [facility] Comment on above: Performed By: #### Rod BLOOM CHM7 ####[facility] (DEFAULT)[address] [place] [address] Urea nitrogen [Mass/Vol] 16 mg/dL Normal 7-25 [facility] Comment on above: Performed By: #### M TJ BLOOM7 ####[facility] (DEFAULT)[address] [place] [address] Urea nitrogen/Creatinine [Mass ratio] 14 mg/mg Normal [facility] Comment on above: Performed By: #### TJ RAMÍREZ7 ####[facility] (DEFAULT)[address] [place] [address] Anion gap [Moles/Vol] 14 mmol/L 7 - 17 mmol/L [facility] Chloride [Moles/Vol] 106 mmol/L 98 - 10 8 mmol/L [facility] CO2 [Moles/Vol] 24 mmol/L 21 - 31 mmol/L [facility] Creatinine [Mass/Vol] 1.13 mg/dL 0.70 - 1.30 mg/dL [facility] eGFR, CKD-EPI, Male 78 - PINF [facility] Comment on above: Reported eGFR is bas ed on the CKD-EPI 2020 equation using creatinine, age, and sex. Glucose [Mass/Vol] 86 mg/dL 70 - 99 mg/dL [facility] Osmolality Calc [Osmolality] 293 [facility] Potassium [Moles/Vol] 3.8 mmol/L 3.5 - 5.0 mmol/L [facility] Sodium [Moles/Vol] 140 mmol/L 135 - 145 mmol/L [facility] Urea nitrogen [Mass/Vol] 16 mg/dL 7 - 25 mg/dL [facility] Urea nitrogen/Creatinine [Mass ratio] 14 mg/mg [facility] EBV BY PCR, QUANTITATIVE,BRANDIN Samuel 01-19-2024 Ebv By Pcr, Quant, Blood <1000 Normal <1000 [facility] Comment on above: Order Comment: This test was performed using a real time PCR assay. The dynamic range for this assay is 1000-5,000,000 IU/mL. A result <1000 IU/mL does not rule out the presence of EBV DNA in quantities below the sensitivity of this assay. This test was developed and its performance characteristics determined by [facility] at [facility]. It has not been cleared or approved by the FDA. The laboratory is regulated under CLIA as qualified to perform high-complexity testing. This test is used for clinical purposes. It should not be regarded as investigational or for research. Performed By: #### E BVPCR ####[facility] (DEFAULT)[address] [address] HISTOPLASMA AND BLASTOMYCES ANTIGEN, ENZYME IMMUNOASSAY, SERMon 01-19-2024 Histoplasma/Blastomy antonia Ag Result Not detected Not Detected [facility] Comment on above: No antigen from Hist oplasma or Blastomyces detected. False negative results may occur depending on extent of disease, and/or site of infection. Repeat testing on a new specimen if clinically indicated. Histoplasma/Blastomy antonia Ag Value Not detected ng/mL [facility] Comment on above: ADDITIONAL INFORMATION This test was developed and its performance characteristics determined by [facility] in a manner consistent with CLIA requirements. This test has not been cleared or approved by the U.S. Food and Drug Administration. Test Performed by: [place] [address] Knife Glazer: Rosendo Bose M.D. Ph.D.; CLIA# [id number] [facility] MAGNESIUMon 01-19-2024 Magnesium [Mass/Vol] 1.8 mg/dL Normal 1.6-2.6 [facility] Comment on above: Performed By: #### M MERLE, CHM7 ####[facility] (DEFAULT)[address] [address] Interpretation and review of laboratory results Normal [facility] Magnesium [Mass/Vol] 1.8 mg/dL 1.6 - 2 .6 mg/dL [facility] No Panel Informationon 01-19 [facility] TACROLIMUS LEVEL, TROUGH (OR E DRUG LEVEL)Ordered By: Raymundo Mehta on 01-19-2024 Interpretation and review of laboratory results Normal [facility] Tacrolimus (Bld) [Mass/Vol] 6.8 ng/mL Bone Marrow Transplant: 4.0-12.0, Therapeutic: 5.0-15.0 [facility] Method performed is a chemiluminescent microparticle immunoasssay on the [employer] i2000. The range is based on experience at [facility] and users should be aware that target concentrations vary widely depending on concomitant therapy, time post-transplant, and desired degree of immunosuppression. [facility] TACROLIMUS LEVEL, TROUGH (OR E DRUG LEVEL)on 01-19-2024 Tacrolimus, Trough 6.8 ng/mL Normal Bone Susana ow Transplant: 4.0-12.0, Therapeutic: 5.0-15.0 [facility] Comment on above: Order Comment: Pleas e draw at specified interval PRIOR to dose. Do not hold dose to wait for level. Specimens batched twice per day, (M-F) and once per day weekendsMethod performed is a chemiluminescent microparticle immunoasssay on the [employer] i2000.The range is based on experience at [facility] and users should be aware that target concentrations vary widely depending on concomitant therapy, time post-transplant, and desired degree of immunosuppression. Performed By: #### T ACRO ####[facility] (DEFAULT)[address] [place] [address] US AV fistulaOrdered By: Diana Reyes on 01-19-2024 [facility] Work Phone: US AV fistulaon 01-19-2024 Radiology Study observation (narrative) [facility] AFP TUMOR MARKEROrdered By: Francisca Alaniz on 01-18-2024 AFP.tumor marker [Mass/Vol] ng/mL NINF - 8.1 ng/mL [facility] Comment on above: This test was perfor med on the [employer] Immunoassay platform by [employer] which is a two-site sandwich chemiluminescent immunoassay. It is important to note that assays using different manufacturers and/or methods may not be comparable. Interpretation and review of laboratory results Normal [facility] CBC,PLATELETSon 01-18-2024 Hematocrit (Bld) [Volume fraction] 38.4 % Low 39.6-48.8 [facility] Comment on above: Performed By: #### H EMOGC ####[facility] (DEFAULT)[address] [place] [address] Hemoglobin (Bld) [Mass/Vol] 12.1 g/dL Low 13.4-16.8 [facility] Comment on above: Performed By: #### H EMOGC ####[facility] (DEFAULT)[address] [place] [address] MCV (RBC) [Entitic vol] 88.3 fL Normal 79.0-94.5 [facility] Comment on above: Performed By: #### H EMOGC ####[facility] (DEFAULT)[address] [place] [address] Mean Cell Hgb 27.8 pg Normal 26.1-33.3 [facility] Comment on above: Performed By: #### H EMOGC ####[facility] (DEFAULT)[address] [place] [address] Mean Cell Hgb Conc 31.5 g/dL Low 31.9-36.5 [facility] Comment on above: Performed By: #### H EMOGC ####[facility] (DEFAULT)[address] [place] [address] Platelet mean volume (Bld) [Entitic vol] 10.4 fL Normal 8.7-12.3 [facility] Comment on above: Performed By: #### H EMOGC ####[facility] (DEFAULT)[address] [place] [address] Platelets (Bld) [#/Vol] 183 10*3/uL Normal 146-337 [facility] Comment on above: Performed By: #### H EMOGC ####[facility] (DEFAULT)[address] [place] [address] RBC (Bld) [#/Vol] 4.35 10*6/uL Low 4.38-5.83 [facility] Comment on above: Performed By: #### [facility] ####[facility] (DEFAULT)[address] [place] [address] RBC Distribution 13.9 % Normal 10.9-14.3 [facility] Comment on above: Performed By: #### [facility] ####[facility] (DEFAULT)[address] [place] [address] WBC (Bld) [#/Vol] 3.66 10*3/uL Low 3.73-10.10 [facility] Comment on above: Performed By: #### [facility] ####[facility] (DEFAULT)[address] [place] [address] Erythrocyte distribution width (RBC) [Ratio] 13.9 % 10.9 - 14.3 % [facility] Hematocrit (Bld) [Volume fraction] 38.4 % Low 39.6 - 48.8 % [facility] Hemoglobin (Bld) [Mass/Vol] 12.1 g/dL Low 13.4 - 16.8 g/dL [facility] Interpretation and review of laboratory results Abnormal [facility] MCH (RBC) [Entitic mass] 27.8 pg 26.1 - 33.3 pg [facility] MCHC (RBC) [Mass/Vol] 31.5 g/dL Low 31.9 - 36.5 g/dL [facility] MCV (RBC) [Entitic vol] 88.3 fL 79.0 - 94.5 fL [facility] Platelet mean volume (Bld) [Entitic vol] 10.4 fL 8.7 - 12.3 fL [facility] Platelets (Bld) [#/Vol] 183 10*3/uL 146 - 337 K/uL [facility] RBC (Bld) [#/Vol] 4.35 10*6/uL Low [facility] WBC (Bld) [#/Vol] 3.66 10*3/uL Low 3.73 - 10. 10 K/uL [facility] CHEM 7 (LYTES,BUN,CREA,GLUC) on 01-18-2024 Anion gap [Moles/Vol] 11 mmol/L Normal 7-17 [facility] Comment on above: Performed By: #### C HM7, HFP, MGO, TSHQR ####[facility] (DEFAULT)[address] [place] [address] Chloride [Moles/Vol] 108 mmol/L Normal 98-108 [facility] Comment on above: Performed By: #### C HM7, HFP, MGO, TSHQR ####[facility] (DEFAULT)[address] [place] [address] CO2 [Moles/Vol] 26 mmol/L Normal 21-31 [facility] Comment on above: Performed By: #### C HM7, HFP, MGO, TSHQR ####[facility] (DEFAULT)[address] [place] [address] Creatinine [Mass/Vol] 1.00 mg/dL Normal 0.70-1.30 [facility] Comment on above: Performed By: #### C HM7, HFP, MGO, TSHQR ####[facility] (DEFAULT)[address] [place] [address] eGFR, CKD-EPI, Male > Normal >=60 [facility] Comment on above: Result Comment: Repo rted eGFR is based on the CKD-EPI 2020 equation using creatinine, age, and sex. Performed By: #### C HM7, HFP, MGO, TSHQR ####[facility] (DEFAULT)[address] [place] [address] Glucose [Mass/Vol] 89 mg/dL Normal 70-99 [facility] Comment on above: Performed By: #### C HM7, HFP, MGO, TSHQR ####[facility] (DEFAULT)[address] [place] [address] Osmolality [Osmolality] 295 mosm/kg Normal 278-305 [facility] Comment on above: Performed By: #### C HM7, HFP, MGO, TSHQR ####[facility] (DEFAULT)[address] [place] [address] Potassium [Moles/Vol] 3.9 mmol/L Normal 3.5-5.0 [facility] Comment on above: Performed By: #### C HM7, HFP, MGO, TSHQR ####[facility] (DEFAULT)[address] [place] [address] Sodium [Moles/Vol] 141 mmol/L Normal 135-145 [facility] Comment on above: Performed By: #### C HM7, HFP, MGO, TSHQR ####[facility] (DEFAULT)[address] [place] [address] Urea nitrogen [Mass/Vol] 16 mg/dL Normal 7-25 [facility] Comment on above: Performed By: #### C HM7, HFP, MGO, TSHQR ####[facility] (DEFAULT)[address] [place] [address] Urea nitrogen/Creatinine [Mass ratio] 16 mg/mg Normal [facility] Comment on above: Performed By: #### C HM7, HFP, MGO, TSHQR ####[facility] (DEFAULT)[address] [place] [address] Anion gap [Moles/Vol] 11 mmol/L 7 - 17 mmol/L [facility] Chloride [Moles/Vol] 108 mmol/L 98 - 10 8 mmol/L [facility] CO2 [Moles/Vol] 26 mmol/L 21 - 31 mmol/L [facility] Creatinine [Mass/Vol] 1.00 mg/dL 0.70 - 1.30 mg/dL [facility] eGFR, CKD-EPI, Male - PINF [facility] Comment on above: Reported eGFR is bas ed on the CKD-EPI 2020 equation using creatinine, age, and sex. Glucose [Mass/Vol] 89 mg/dL 70 - 99 mg/dL [facility] Osmolality Calc [Osmolality] 295 [facility] Potassium [Moles/Vol] 3.9 mmol/L 3.5 - 5.0 mmol/L [facility] Sodium [Moles/Vol] 141 mmol/L 135 - 145 mmol/L [facility] Urea nitrogen [Mass/Vol] 16 mg/dL 7 - 25 mg/dL [facility] Urea nitrogen/Creatinine [Mass ratio] 16 mg/mg [facility] Cardiac echo study Procedure Ordered By: Gian Carlos on 01-18-2024 Ao ASC index 1.63 cm/m2 [facility] Work Phone: Ao peak meliton 1.46 m/s [facility] Work Phone: Ao SOV index 1.56 cm/m2 [facility] Work Phone: Ao STJ index 1.25 cm/m2 [facility] Work Phone: Ao VTI 35.74 cm [facility] Work Phone: Ascending [facility] 3.39 [facility]: AV LVOT peak gradient 4 mmHg [facility] Work Phone: AV mean gradient 5 mmHg [facility]: AV peak gradient 9 mmHG [facility] Work Phone: AV valve area 3.09 cm2 [facility] Work Phone: AV Velocity Ratio 0.73 [facility] Work Phone: VEGA (continuity Vmax) 3.01 cm2 [facility] Work Phone: VEGA (continuity VTI) 3.09 cm2 [facility] Work Phone: VEGA index (continuity Vmax) 1.45 m/s [facility] Work Phone: VEGA index (continuity VTI) 1.49 cm2/m2 [facility] Work Phone: Avg e' pk meliton 0.07 m/s [facility] Work Phone: Avg E/e' ratio 19.45 [facility] Work Phone: Body surface area Derived from formula 2.08 m2 [facility] Work Phone: BP EF 62 % [facility] Work Phone: DI (Vmax) 0.73 [facility] Work Phone: DI (VTI) 0.74 m/2 [facility] Work Phone: E wave decelartion time 180.38 msec [facility] Work Phone: e' lateral pk meliton 0.0789 m/s [facility]: e' lateral pk meliton 0.08 m/s [facility] Work Phone: e' septal pk meliton 0.0653 m/s [facility] Work Phone: e' septal pk meliton 0.07 m/s [facility] Work Phone: E/A ratio 2.67 [facility] Work Phone: E/e' lateral ratio 17.62 [facility] Work Phone: E/e' septal ratio 21.29 [facility] Work Phone: [phone] EF SP 2CH 66 [facility] Work Phone: EF SP 4CH 58 [facility] Work Phone: FS 28 % 28 - 44 % [facility] Work Phone: IVC ostium 2.30 cm [facility] Work Phone: IVS 1.11 cm [facility] Work Phone: LA AREA 2CH 24.36 cm2 [facility] Work Phone: LA area 4CH 20.36 cm2 [facility] Work Phone: [phone] LA ESV BP (MOD) 64 mL [facility] Work Phone: LA ESV BP (MOD) index 31 mL/m2 [facility] Work Phone: LA ESV SP 2CH (MOD) 76 mL [facility] Work Phone: LA ESV SP 4CH (MOD) 53 mL [facility] Work Phone: [phone] LV EDV BP 180 mL [facility] Work Phone: LV EDV SP 2CH 190 mL [facility] Work Phone: LV EDV SP 4CH 166 mL [facility] Work Phone: LV ESV BP 69 mL [facility] Work Phone: LV ESV SP 2CH 65 mL [facility] Work Phone: LV ESV SP 4CH 70 mL [facility] Work Phone: LV mass 254.73 g [facility] Work Phone: LV Mass Index 122.5 g/m2 [facility] Work Phone: LV RWT 0.42 [facility] Work Phone: LV stroke volume BP (ml) 111 mL [facility] Work Phone: LV stroke volume index BP 53.37 mL/m2 [facility] Work Phone: LVIDD 5.53 cm [facility] Work Phone: LVIDS 3.97 cm [facility] Work Phone: LVOT area 4.15 cm2 [facility] Work Phone: LVOT diameter 2.30 cm [facility] Work Phone: [phone] LVOT peak meliton 1.06 m/s [facility] Work Phone: LVOT peak VTI 26.61 cm [facility] Work Phone: LVOT stroke volume 111 cm3 [facility] Work Phone: LVOT stroke volume index 53.13 ml/m2 [facility] Work Phone: Mr max meliton 4.21 m/s [facility] Work Phone: MR VTI 134.50 cm [facility] Work Phone: MV mean gradient 3 mmHg [facility] Work Phone: MV peak gradient 11 mmHg [facility] Work Phone: MV pk A meliton 0.52 m/s [facility] Work Phone: MV pk E meliton 1.39 m/s [facility] Work Phone: MV stenosis pressure 1/2 time 58.56 ms [facility] Work Phone: MV valve area by continuity eq 2.93 cm2 [facility] Work Phone: MV valve area p 1/2 method 3.76 cm2 [facility] Work Phone: MV VTI 37.70 cm [facility] Work Phone: MVA (continuity VTI) 2.92 cm [facility] Work Phone: OSU AV VTI RATIO PRE STRESS 0.74 [facility] Work Phone: OSU ECHO LV BIPLANE SYSTOLIC VOLUME INDEX 33.17 mL/m2 [facility] Work Phone: OSU ECHO LV BP DIASTOLIC VOLUME INDEX 86.54 mL/m2 [facility] Work Phone: [facility]SU ECHO MR PEAK GRADIENT 70.94 mmHg [facility] Work Phone: PW 1.16 cm [facility] Work Phone: RA area 4CH (MOD) 14.50 cm2 [facility] Work Phone: RA vol index 4CH (MOD) 18.27 mL/m2 [facility] Work Phone: Right atrium volume 4 chamber method of disks 38 mL [facility] Work Phone: RV Area diastolic 33.20 cm2 [facility] Work Phone: RV Area systolic 21.30 cm2 [facility] Work Phone: RV basal diam 4.52 cm [facility] Work Phone: RV Fractional area change 35.8 % [facility] Work Phone: RV long diam 8.96 cm [facility] Work Phone: RV mid diam 3.70 cm [facility] Work Phone: RV S' 22.01 cm/s [facility] Work Phone: RVOT peak gradient 4 mmHg [facility] Work Phone: RVOT peak meliton 0.96 m/s [facility] Work Phone: RVOT peak VTI 20.86 cm [facility] Work Phone: Sinus 3.24 cm [facility] Work Phone: STJ 2.61 cm [facility] Work Phone: Stroke Volume 111 cm/mL [facility] Work Phone: Stroke volume index [facility] Work [facility]: TAPSE 2.19 cm [facility] Work Phone: [facility] Work Phone: Cardiac echo study Procedure [...] echocardiography study was performed. Imaging system used: [employer]. Indications Indications for study: shortness of breath. [facility] Radiology Study observation (narrative) [facility] HEPATIC FUNCTION PANELon Albumin [Mass/Vol] 3.5 g/dL Normal 3.5-5.0 [facility] Comment on above: Performed By: #### C HM7, HFP, MGO, TSHQR ####[facility] (DEFAULT)[address] [place] [address] ALP [Catalytic activity/Vol] 70 U/L Normal 32-126 [facility] Comment on above: Performed By: #### C HM7, HFP, MGO, TSHQR ####[facility] (DEFAULT)[address] [facility] [place] [address] ALT [Catalytic activity/Vol] 8 U/L Low 10-52 [facility] Comment on above: Performed By: #### C HM7, HFP, MGO, TSHQR ####[facility] (DEFAULT)[address] [place] [address] AST [Catalytic activity/Vol] 20 U/L Normal 10-39 [facility] Comment on above: Performed By: #### C HM7, HFP, MGO, TSHQR ####[facility] (DEFAULT)[address] [place] [address] Bilirubin [Mass/Vol] 1.7 mg/dL High <1.5 [facility] Comment on above: Performed By: #### C HM7, HFP, MGO, TSHQR ####[facility] (DEFAULT)[address] [place] [address] Bilirubin.indirect [Mass/Vol] 0.4 mg/dL High <0.3 [facility] Comment on above: Performed By: #### C HM7, HFP, MGO, TSHQR ####[facility] (DEFAULT)[address] [place] [address] Protein [Mass/Vol] 6.0 g/dL Low 6.4-8.3 [facility] Comment on above: Performed By: #### C HM7, HFP, MGO, TSHQR ####[facility] (DEFAULT)[address] [place] [address] Albumin [Mass/Vol] 3.5 g/dL 3.5 - 5.0 g/dL [facility] ALP [Catalytic activity/Vol] 70 U/L 32 - 126 U/L [facility] ALT [Catalytic activity/Vol] 8 U/L Low 10 - 52 U/L [facility] AST [Catalytic activity/Vol] 20 U/L 10 - 39 U/L [facility] Bilirubin [Mass/Vol] 1.7 mg/dL High NINF - 1.5 mg/dL [facility] Bilirubin.direct [Mass/Vol] 0.4 mg/dL High NINF - 0.3 mg/dL [facility] Protein [Mass/Vol] 6.0 g/dL Low 6.4 - 8.3 g/dL [facility] MAGNESIUMon 01-18-2024 Magnesium [Mass/Vol] 1.5 mg/dL Low 1.6-2.6 [facility] Comment on above: Performed By: #### C HM7, HFP, MGO, TSHQR ####[facility] (DEFAULT)[address] [place] [address], [place] [address] Magnesium [Mass/Vol] 1.5 mg/dL Low 1.6 - 2 .6 mg/dL [facility] No Panel Informationon 01-18 Interpretation and review of laboratory results Abnormal [facility] PT,INR,PTTon 01-18-2024 aPTT Coag (Bld) [Time] 30.0 s Normal 24.0-34.3 [facility] Comment on above: Performed By: #### P TPTT ####[facility] (DEFAULT)[address] [place] [address] INR Coag (PPP) [Relative time] 1.1 {INR} Normal 0.9-1.1 [facility] Comment on above: Performed By: #### P TPTT ####[facility] (DEFAULT)[address] [place] [address] PT Coag (PPP) [Time] 14.5 s High 11.9-14.2 [facility] Comment on above: Performed By: #### P TPTT ####[facility] (DEFAULT)[address] [place] [address], [place] [address] aPTT Coag (PPP) [Time] 30.0 s [facility] INR Coag (Bld) [Relative time] 1.1 {INR} 0.9 - 1.1 [facility] Interpretation and review of laboratory results Abnormal [facility] PT Coag (PPP) [Time] 14.5 s High [facility] TSH W/FT4 REFLEXon Interpretation and review of laboratory results Normal [facility] TSH Qn 2.660 m[IU]/L [facility] TSH 2.660 uIU/mL Normal 0.550-4.780 [facility] Comment on above: Performed By: #### C HM7, HFP, MGO, TSHQR ####[facility] (DEFAULT)[address] [place] [address] AFP TUMOR MARKERon AFP Tumor Marker <2.2 Normal <8.1 [facility] Comment on above: Result Comment: This test was performed on the [employer] IM Immunoassay platform by [employer] which is a two-site sandwich chemiluminescent immunoassay. It is important to note that assays using different manufacturers and/or methods may not be comparable. Performed By: #### A FPTMR ####[facility] (DEFAULT)[address] [place] [address] DARYL AURIS SCREEN BY PCRO rdered By: Mynor Alejandro on 01-17-2024 Daryl auris Screen by PCR Not detected Not Detected [facility] Interpretation and review of laboratory results Normal [facility] This test was perfor med using a real-time PCR assay. This test was developed, and its performance characteristics determined by [facility] at [facility]. It has not been cleared or approved by the FDA. The laboratory is regulated under CLIA as qualified to perform high-complexity testing. This test is used for clinical purposes. It should not be regarded as investigational or for research. [facility] CBC,PLATELETSon 01-17-2024 Hematocrit (Bld) [Volume fraction] 37.2 % Low 39.6-48.8 [facility] Comment on above: Performed By: #### [facility] ####[facility] (DEFAULT)[address] [place] [address] Hemoglobin (Bld) [Mass/Vol] 12.0 g/dL Low 13.4-16.8 [facility] Comment on above: Performed By: #### [facility] ####[facility] (DEFAULT)[address] [place] [address] MCV (RBC) [Entitic vol] 86.5 fL Normal 79.0-94.5 [facility] Comment on above: Performed By: #### [facility] ####[facility] (DEFAULT)[address] [place] [address] Mean Cell Hgb 27.9 pg Normal 26.1-33.3 [facility] Comment on above: Performed By: #### H EMOGC ####[facility] (DEFAULT)[address] [place] [address] Mean Cell Hgb Conc 32.3 g/dL Normal 31.9-36.5 [facility] Comment on above: Performed By: #### H EMOGC ####[facility] (DEFAULT)[address] [place] [address] Platelet mean volume (Bld) [Entitic vol] 10.5 fL Normal 8.7-12.3 [facility] Comment on above: Performed By: #### H EMOGC ####[facility] (DEFAULT)[address] [place] [address] Platelets (Bld) [#/Vol] 159 10*3/uL Normal 146-337 [facility] Comment on above: Performed By: #### H EMOGC ####[facility] (DEFAULT)[address] [place] [address] RBC (Bld) [#/Vol] 4.30 10*6/uL Low 4.38-5.83 [facility] Comment on above: Performed By: #### H EMOGC ####[facility] (DEFAULT)[address] [place] [address] RBC Distribution 14.0 % Normal 10.9-14.3 [facility] Comment on above: Performed By: #### H EMOGC ####[facility] (DEFAULT)[address] [place] [address] WBC (Bld) [#/Vol] 3.69 10*3/uL Low 3.73-10.10 [facility] Comment on above: Performed By: #### H EMOGC ####[facility] (DEFAULT)[address] [place] [address] Erythrocyte distribution width (RBC) [Ratio] 14.0 % 10.9 - 14.3 % [facility] Hematocrit (Bld) [Volume fraction] 37.2 % Low 39.6 - 48.8 % [facility] Hemoglobin (Bld) [Mass/Vol] 12.0 g/dL Low 13.4 - 16.8 g/dL [facility] Interpretation and review of laboratory results Abnormal [facility] MCH (RBC) [Entitic mass] 27.9 pg 26.1 - 33.3 pg [facility] MCHC (RBC) [Mass/Vol] 32.3 g/dL 31.9 - 36.5 g/dL [facility] MCV (RBC) [Entitic vol] 86.5 fL 79.0 - 94.5 fL [facility] Platelet mean volume (Bld) [Entitic vol] 10.5 fL 8.7 - 12.3 fL [facility] Platelets (Bld) [#/Vol] 159 10*3/uL 146 - 337 K/uL [facility] RBC (Bld) [#/Vol] 4.30 10*6/uL Low [facility] WBC (Bld) [#/Vol] 3.69 10*3/uL Low 3.73 - 10. 10 K/uL [facility] CHEM 7 (LYTES,BUN,CREA,GLUC) on 01-17-2024 Anion gap [Moles/Vol] 13 mmol/L Normal 7-17 [facility] Comment on above: Performed By: #### C HM7, HFP, MGO ####[facility] (DEFAULT)[address] [place] [address] Chloride [Moles/Vol] 109 mmol/L High 98-108 [facility] Comment on above: Performed By: #### C HM7, HFP, MGO ####[facility] (DEFAULT)[address] [place] [address] CO2 [Moles/Vol] 21 mmol/L Normal 21-31 [facility] Comment on above: Performed By: #### TAVO GONG, MGO ####[facility] (DEFAULT)[address] [place] [address] Creatinine [Mass/Vol] 1.04 mg/dL Normal 0.70-1.30 [facility] Comment on above: Performed By: #### C JASMYNE, TAVO, MGO ####[facility] (DEFAULT)[address] [place] [address] GFR/1.73 sq M.predicted among non-blacks MDRD (S/P/Bld) [Vol rate/Area] 86 mL/min/{1.73_m2} Normal >=60 [facility] Comment on above: Result Comment: Repo rted eGFR is based on the CKD-EPI 2020 equation using creatinine, age, and sex. Performed By: #### C JASMYNE, TAVO, MGO ####[facility] (DEFAULT)[address] [place] [address] Glucose [Mass/Vol] 82 mg/dL Normal 70-99 [facility] Comment on above: Performed By: #### Chinedu MEDLEY, HFP, MGO ####[facility] (DEFAULT)[address] [place] [address] Osmolality [Osmolality] 292 mosm/kg Normal 278-305 [facility] Comment on above: Performed By: #### C HMJessica, HFP, MGO ####[facility] (DEFAULT)[address] [place] [address] Potassium [Moles/Vol] 4.4 mmol/L Normal 3.5-5.0 [facility] Comment on above: Performed By: #### Chinedu HM7, HFP, MGO ####[facility] (DEFAULT)[address] [place] [address] Sodium [Moles/Vol] 139 mmol/L Normal 135-145 [facility] Comment on above: Performed By: #### C HM7, HFP, MGO ####[facility] (DEFAULT)[address] [facility] [place] [address] Urea nitrogen [Mass/Vol] 17 mg/dL Normal 7-25 [facility] Comment on above: Performed By: #### C HM7, HFP, MGO ####[facility] (DEFAULT)[address] [place] [address] Urea nitrogen/Creatinine [Mass ratio] 16 mg/mg Normal [facility] Comment on above: Performed By: #### C HM7, HFP, MGO ####[facility] (DEFAULT)[address] [place] [address] Anion gap [Moles/Vol] 13 mmol/L 7 - 17 mmol/L [facility] Chloride [Moles/Vol] 109 mmol/L High 98 - 10 8 mmol/L [facility] CO2 [Moles/Vol] 21 mmol/L 21 - 31 mmol/L [facility] Creatinine [Mass/Vol] 1.04 mg/dL 0.70 - 1.30 mg/dL [facility] eGFR, CKD-EPI, Male 86 - PINF [facility] Comment on above: Reported eGFR is bas ed on the CKD-EPI 2020 equation using creatinine, age, and sex. Glucose [Mass/Vol] 82 mg/dL 70 - 99 mg/dL [facility] Osmolality Calc [Osmolality] 292 [facility] Potassium [Moles/Vol] 4.4 mmol/L 3.5 - 5.0 mmol/L [facility] Sodium [Moles/Vol] 139 mmol/L 135 - 145 mmol/L [facility] Urea nitrogen [Mass/Vol] 17 mg/dL 7 - 25 mg/dL [facility] Urea nitrogen/Creatinine [Mass ratio] 16 mg/mg [facility] CT ABDOMEN/PELVIS WITHOUT CO NTRASTon 01-17-2024 CT ABDOMEN/PELVIS WITHOUT CONTRAST Normal [facility] CT Abdomen and Pelvis WO geoff manriquezon 01-17-2024 IMPRESSION: 1. Since 08/31/2023, resolution of [...] unremarkable. Kidneys: Severe atrophy of the bilateral [place] kidney is without hydronephrosis. Right lower quadrant [...] unremarkable. Kidneys: Severe atrophy of the bilateral [place] kidney is without hydronephrosis. Right lower quadrant [...] the middle lobe. Trace left pleural effusion. [facility] Radiology Study observation (narrative) [facility] HEPATIC FUNCTION PANELon Albumin [Mass/Vol] 3.5 g/dL Normal 3.5-5.0 [facility] Comment on above: Performed By: #### C HM7, HFP, MGO ####[facility] (DEFAULT)[address] [place] [address] ALP [Catalytic activity/Vol] 73 U/L Normal 32-126 [facility] Comment on above: Performed By: #### C HM7, HFP, MGO ####[facility] (DEFAULT)[address] [place] [address] ALT [Catalytic activity/Vol] 7 U/L Low 10-52 [facility] Comment on above: Performed By: #### C HM7, HFP, MGO ####[facility] (DEFAULT)[address] [place] [address] AST [Catalytic activity/Vol] 25 U/L Normal 10-39 [facility] Comment on above: Performed By: #### C HM7, HFP, MGO ####[facility] (DEFAULT)[address] [place] [address] Bilirubin [Mass/Vol] 1.8 mg/dL High <1.5 [facility] Comment on above: Performed By: #### C HM7, HFP, MGO ####[facility] (DEFAULT)[address] [place] [address] Bilirubin.indirect [Mass/Vol] 0.3 mg/dL High <0.3 [facility] Comment on above: Performed By: #### C HM7, HFP, MGO ####[facility] (DEFAULT)[address] [place] [address] Protein [Mass/Vol] 6.0 g/dL Low 6.4-8.3 [facility] Comment on above: Performed By: #### C HM7, HFP, MGO ####[facility] (DEFAULT)[address] [facility] [place] [address] Albumin [Mass/Vol] 3.5 g/dL 3.5 - 5.0 g/dL [facility] ALP [Catalytic activity/Vol] 73 U/L 32 - 126 U/L [facility] ALT [Catalytic activity/Vol] 7 U/L Low 10 - 52 U/L [facility] AST [Catalytic activity/Vol] 25 U/L 10 - 39 U/L [facility] Bilirubin [Mass/Vol] 1.8 mg/dL High NINF - 1.5 mg/dL [facility] Bilirubin.direct [Mass/Vol] 0.3 mg/dL High NINF - 0.3 mg/dL [facility] Protein [Mass/Vol] 6.0 g/dL Low 6.4 - 8.3 g/dL [facility] HISTOPLASMA AND BLASTOMYCES ANTIGEN, ENZYME IMMUNOASSAY, SERMon 01-17-2024 Histoplasma/Blastomy antonia Ag Result Not detected Normal Not Detected [facility] Comment on above: Result Comment: No a ntigen from Histoplasma or Blastomyces detected. Falsenegative results may occur depending on extent of disease,and/or site of infection. Repeat testing on a new specimenif clinically indicated. Performed By: #### H CORAL ####[facility] (DEFAULT)[address] [place] [address] Histoplasma/Blastomy antonia Ag Value Not detected Normal [facility] Comment on above: Result Comment: ---- ADDITIONAL INFORMATION This test was developed and its performance characteristicsdetermined by [facility] in a manner consistent with CLIArequirements. This test has not been cleared or approved bythe U.S. Food and Drug Administration.Test Performed by:[address] [address]Pmt Director: oRsendo Bose M.D. Ph.D.; CLIA# [id number] Performed By: #### H LIYAG ####[facility] (DEFAULT)[address] [place] [address] MAGNESIUMon 01-17-2024 Magnesium [Mass/Vol] 1.7 mg/dL Normal 1.6-2.6 [facility] Comment on above: Performed By: #### C HM7, HFP, MGO ####[facility] (DEFAULT)[address] [place] [address] Interpretation and review of laboratory results Normal [facility] Magnesium [Mass/Vol] 1.7 mg/dL 1.6 - 2 .6 mg/dL [facility] No Panel Informationon 01-17 Interpretation and review of laboratory results Abnormal [facility] PT,INR,PTTon 01-17-2024 aPTT Coag (PPP) [Time] 29.9 s [facility] INR Coag (Bld) [Relative time] 1.1 {INR} 0.9 - 1.1 [facility] Interpretation and review of laboratory results Abnormal [facility] PT Coag (PPP) [Time] 14.5 s High [facility] aPTT Coag (Bld) [Time] 29.9 s Normal 24.0-34.3 [facility] Comment on above: Performed By: #### P TPTT ####[facility] (DEFAULT)[address] [place] [address] INR Coag (PPP) [Relative time] 1.1 {INR} Normal 0.9-1.1 [facility] Comment on above: Performed By: #### P TPTT ####[facility] (DEFAULT)[address] [place] [address] PT Coag (PPP) [Time] 14.5 s High 11.9-14.2 [facility] Comment on above: Performed By: #### P TPTT ####[facility] (DEFAULT)[address] [place] [address] B-TYPE NATRIURETIC PEPTIDE ( BRAIN)on 01-16-2024 Interpretation and review of laboratory results Abnormal [facility] Natriuretic peptide B (Bld) [Mass/Vol] 212 pg/mL High 0 - 100 pg/mL [facility] Natriuretic peptide B (Bld) [Mass/Vol] 212 pg/mL High 0-100 [facility] Comment on above: Performed By: #### B MDM SR ####[facility] (DEFAULT)[address] [place] [address] CALCIUMon 01-16-2024 Calcium [Mass/Vol] 8.5 mg/dL Low 8.6-10.5 [facility] Comment on above: Performed By: #### C A, CHM7, IPB, MGO, HFP ####[facility] (DEFAULT)[address] [place] [address] Calcium [Mass/Vol] 8.5 mg/dL Low 8.6 - 10. 5 mg/dL [facility] DARYL AURIS SCREEN BY PCRo n 01-16-2024 Daryl auris Screen by PCR Not detected Normal Not Detected [facility] Comment on above: Order Comment: This test was performed using a real-time PCR assay. This test was developed, and its performance characteristics determined by [facility] at [facility]. It has not been cleared or approved by the FDA. The laboratory is regulated under CLIA as qualified to perform high-complexity testing. This test is used for clinical purposes. It should not be regarded as investigational or for research. Performed By: #### C ANDIDA AURIS SCREEN BY PCR ####[facility] (DEFAULT)[address] [place] [address] CBC AND ELECTRONIC DIFFon Abs Baso Auto < Normal 0.00-0.09 [facility] Comment on above: Performed By: #### L AB980 ####[facility] (DEFAULT)[address] [facility] [place] [address] Basophils/100 WBC (Bld) 0.6 % Normal [facility] Comment on above: Performed By: #### L AB980 ####[facility] (DEFAULT)[address] [place] [address] DIFF STATUS Electronic Differential Normal [facility] Comment on above: Performed By: #### L AB980 ####[facility] (DEFAULT)[address] [place] [address] Eosinophils (Bld) [#/Vol] 0.09 10*3/uL Normal 0.00-0.48 [facility] Comment on above: Performed By: #### L AB980 ####[facility] (DEFAULT)[address] [place] [address] Eosinophils/100 WBC (Bld) 2.5 % Normal [facility] Comment on above: Performed By: #### L AB980 ####[facility] (DEFAULT)[address] [place] [address] Hematocrit (Bld) [Volume fraction] 37.4 % Low 39.6-48.8 [facility] Comment on above: Performed By: #### L AB980 ####[facility] (DEFAULT)[address] [place] [address] Hemoglobin (Bld) [Mass/Vol] 12.1 g/dL Low 13.4-16.8 [facility] Comment on above: Performed By: #### L AB980 ####[facility] (DEFAULT)[address] [place], [place] [address], [place] [address] Immature Grans % 0.3 % Normal [facility] Comment on above: Performed By: #### L AB980 ####[facility] (DEFAULT)[address] [place] [address], [place] [address] Immature Grans Absolute < Normal <=0.07 [facility] Comment on above: Performed By: #### L AB980 ####[facility] (DEFAULT)[address] [place] [address] Lymphocytes (Bld) [#/Vol] 1.16 10*3/uL Normal 0.83-3.57 [facility] Comment on above: Performed By: #### L AB980 ####[facility] (DEFAULT)[address] [place] [address] Lymphocytes/100 WBC (Bld) 32.0 % Normal [facility] Comment on above: Performed By: #### L AB980 ####[facility] (DEFAULT)[address] [place] [address] MCV (RBC) [Entitic vol] 87.8 fL Normal 79.0-94.5 [facility] Comment on above: Performed By: #### L AB980 ####[facility] (DEFAULT)[address] [place] [address] Mean Cell Hgb 28.4 pg Normal 26.1-33.3 [facility] Comment on above: Performed By: #### L AB980 ####[facility] (DEFAULT)[address] [place] [address] Mean Cell Hgb Conc 32.4 g/dL Normal 31.9-36.5 [facility] Comment on above: Performed By: #### L AB980 ####[facility] (DEFAULT)[address] [place] [address] Monocytes (Bld) [#/Vol] 0.43 10*3/uL Normal 0.24-0.93 [facility] Comment on above: Performed By: #### L AB980 ####[facility] (DEFAULT)[address] [place] [address] Monocytes/100 WBC (Bld) 11.9 % Normal [facility] Comment on above: Performed By: #### L AB980 ####[facility] (DEFAULT)[address] [place] [address] Nucleated RBC 0.0 /100 WBC Normal <=0.2 [facility] Comment on above: Performed By: #### L AB980 ####[facility] (DEFAULT)[address] [place] [address] Platelet mean volume (Bld) [Entitic vol] 10.1 fL Normal 8.7-12.3 [facility] Comment on above: Performed By: #### L AB980 ####[facility] (DEFAULT)[address] [place] [address] Platelets (Bld) [#/Vol] 155 10*3/uL Normal 146-337 [facility] Comment on above: Performed By: #### L AB980 ####[facility] (DEFAULT)[address] [place] [address] RBC (Bld) [#/Vol] 4.26 10*6/uL Low 4.38-5.83 [facility] Comment on above: Performed By: #### L AB980 ####[facility] (DEFAULT)[address] [place] [address] RBC Distribution 14.0 % Normal 10.9-14.3 [facility] Comment on above: Performed By: #### L AB980 ####[facility] (DEFAULT)[address] [place] [address] Segs + Bands Auto 52.7 % Normal [place] Comment on above: Performed By: #### L AB980 ####[facility] (DEFAULT)[address] [place] [address] Segs + Bands,Absolute Auto 1.91 K/uL Normal 1.57-6.19 [facility] Comment on above: Performed By: #### L AB980 ####[facility] (DEFAULT)[address] [place] [address] WBC (Bld) [#/Vol] 3.62 10*3/uL Low 3.73-10.10 [facility] Comment on above: Performed By: #### L AB980 ####[facility] (DEFAULT)[address] [place] [address] Basophils (Bld) [#/Vol] K/uL 0.00 - 0.09 K/uL [facility] Basophils/100 WBC (Bld) 0.6 % [facility] Differential cell count method Nom (Bld) Electronic Differential [facility] Eosinophils (Bld) [#/Vol] 0.09 10*3/uL 0.00 - 0.48 K/uL [facility] Eosinophils/100 WBC (Bld) 2.5 % [facility] Erythrocyte distribution width (RBC) [Ratio] 14.0 % 10.9 - 14.3 % [facility] Hematocrit (Bld) [Volume fraction] 37.4 % Low 39.6 - 48.8 % [facility] Hemoglobin (Bld) [Mass/Vol] 12.1 g/dL Low 13.4 - 16.8 g/dL [facility] Immature granulocytes (Bld) [#/Vol] K/uL NINF - 0.07 K/uL [facility] Immature granulocytes/100 WBC (Bld) 0.3 % [facility] Interpretation and review of laboratory results Abnormal [facility] Lymphocytes (Bld) [#/Vol] 1.16 10*3/uL 0.83 - 3.57 K/uL [facility] Lymphocytes/100 WBC (Bld) 32.0 % [facility] MCH (RBC) [Entitic mass] 28.4 pg 26.1 - 33.3 pg [facility] MCHC (RBC) [Mass/Vol] 32.4 g/dL 31.9 - 36.5 g/dL [facility] MCV (RBC) [Entitic vol] 87.8 fL 79.0 - 94.5 fL [facility] Monocytes (Bld) [#/Vol] 0.43 10*3/uL 0.24 - 0.93 K/uL [facility] Monocytes/100 WBC (Bld) 11.9 % [facility] Neutrophils (Bld) [#/Vol] 1.91 10*3/uL 1.57 - 6.19 K/uL [facility] Nucleated RBC/100 WBC (Bld) [Ratio] 0.0 % [facility] Platelet mean volume (Bld) [Entitic vol] 10.1 fL 8.7 - 12.3 fL [facility] Platelets (Bld) [#/Vol] 155 10*3/uL 146 - 337 K/uL [facility] RBC (Bld) [#/Vol] 4.26 10*6/uL Low [facility] Segmented neutrophils/100 WBC (Bld) 52.7 % [facility] WBC (Bld) [#/Vol] 3.62 10*3/uL Low 3.73 - 10. 10 K/uL [facility] CHEM 7 (LYTES,BUN,CREA,GLUC) on 01-16-2024 Anion gap [Moles/Vol] 11 mmol/L Normal 7-17 [facility] Comment on above: Performed By: #### C A, CHM7, IPB, MGO, HFP ####[facility] (DEFAULT)[address] [place] [address] Chloride [Moles/Vol] 108 mmol/L Normal 98-108 [facility] Comment on above: Performed By: #### C Tray, CHM7, IPB, MGO, HFP ####[facility] (DEFAULT)[address] [place] [address] CO2 [Moles/Vol] 24 mmol/L Normal 21-31 [facility] Comment on above: Performed By: #### Chinedu Feliz, CHM7, IPB, MGO, HFP ####[facility] (DEFAULT)[address] [place] [address] Creatinine [Mass/Vol] 1.04 mg/dL Normal 0.70-1.30 [facility] Comment on above: Performed By: #### C Tray, CHM7, IPB, MGO, HFP ####[facility] (DEFAULT)[address] [place] [address] GFR/1.73 sq M.predicted among non-blacks MDRD (S/P/Bld) [Vol rate/Area] 86 mL/min/{1.73_m2} Normal >=60 [facility] Comment on above: Result Comment: Repo rted eGFR is based on the CKD-EPI 2020 equation using creatinine, age, and sex. Performed By: #### C A, CHM7, IPB, MGO, HFP ####[facility] (DEFAULT)[address] [place] [address] Glucose [Mass/Vol] 95 mg/dL Normal 70-99 [facility] Comment on above: Performed By: #### C A, CHM7, IPB, MGO, HFP ####[facility] (DEFAULT)[address] [place] [address] Osmolality [Osmolality] 293 mosm/kg Normal 278-305 [facility] Comment on above: Performed By: #### Chinedu Feliz, CHM7, IPB, MGO, HFP ####[facility] (DEFAULT)[address] [place] [address] Potassium [Moles/Vol] 4.0 mmol/L Normal 3.5-5.0 [facility] Comment on above: Performed By: #### Chinedu Feliz, CHM7, IPB, MGO, HFP ####[facility] (DEFAULT)[address] [place] [address] Sodium [Moles/Vol] 139 mmol/L Normal 135-145 [facility] Comment on above: Performed By: #### Chinedu Feliz, CHM7, IPB, MGO, HFP ####[facility] (DEFAULT)[address] [place] [address] Urea nitrogen [Mass/Vol] 19 mg/dL Normal 7-25 [facility] Comment on above: Performed By: #### Chinedu Feliz, CHM7, IPB, MGO, HFP ####[facility] (DEFAULT)[address] [place] [address] Urea nitrogen/Creatinine [Mass ratio] 18 mg/mg Normal [facility] Comment on above: Performed By: #### Chinedu Feliz, CHM7, IPB, MGO, HFP ####[facility] (DEFAULT)[address] [place] [address] Anion gap [Moles/Vol] 11 mmol/L 7 - 17 mmol/L [facility] Chloride [Moles/Vol] 108 mmol/L 98 - 10 8 mmol/L [facility] CO2 [Moles/Vol] 24 mmol/L 21 - 31 mmol/L [facility] Creatinine [Mass/Vol] 1.04 mg/dL 0.70 - 1.30 mg/dL [facility] eGFR, CKD-EPI, Male 86 - PINF [facility] Comment on above: Reported eGFR is bas ed on the CKD-EPI 2020 equation using creatinine, age, and sex. Glucose [Mass/Vol] 95 mg/dL 70 - 99 mg/dL [facility] Osmolality Calc [Osmolality] 293 [facility] Potassium [Moles/Vol] 4.0 mmol/L 3.5 - 5.0 mmol/L [facility] Sodium [Moles/Vol] 139 mmol/L 135 - 145 mmol/L [facility] Urea nitrogen [Mass/Vol] 19 mg/dL 7 - 25 mg/dL [facility] Urea nitrogen/Creatinine [Mass ratio] 18 mg/mg [facility] D-DIMER,QUANTITATIVEon 01-16 D-Dimer, High Sensitivity 0.67 mcg/mL FEU High <0.50 [facility] Comment on above: Result Comment: The D-Dimer assay is intended for use in conjuction with a clinical pretest probability (PTP) assessment model to exclude pulmonary embolism (PE) and as an aid in the diagnosis of Deep Vein Thrombosis (DVT) in outpatients suspected of PE or DVT. For the assay in use at [facility] ([facility]), a cutoff of <0.50 mcg/mL has a Negative Predictive Value of 99.7% for exclusion of DVT in low and moderate PTP patients. Performed By: #### P TPTT, HSDDI ####[facility] (DEFAULT)[address] [place] [address] D-DIMER,QUANTITATIVEOrdered By: Shaji Kelly on 01-16-2024 Fibrin D-dimer FEU (PPP) [Mass/Vol] 0.67 High NINF [facility] Comment on above: The D-Dimer assay is intended for use in conjuction with a clinical pretest probability (PTP) assessment model to exclude pulmonary embolism (PE) and as an aid in the diagnosis of Deep Vein Thrombosis (DVT) in outpatients suspected of PE or DVT. For the assay in use at [facility] ([facility]), a cutoff of <0.50 mcg/mL has a Negative Predictive Value of 99.7% for exclusion of DVT in low and moderate PTP patients. Interpretation and review of laboratory results Abnormal [facility] HEPATIC FUNCTION PANELon Albumin [Mass/Vol] 3.7 g/dL Normal 3.5-5.0 [facility] Comment on above: Performed By: #### C A, CHM7, IPB, MGO, HFP ####[facility] (DEFAULT)[address] [place] [address] ALP [Catalytic activity/Vol] 70 U/L Normal 32-126 [facility] Comment on above: Performed By: #### C A, CHM7, IPB, MGO, HFP ####[facility] (DEFAULT)[address] [place] [address] ALT [Catalytic activity/Vol] 8 U/L Low 10-52 [facility] Comment on above: Performed By: #### C A, CHM7, IPB, MGO, HFP ####[facility] (DEFAULT)[address] [place] [address] AST [Catalytic activity/Vol] 21 U/L Normal 10-39 [facility] Comment on above: Performed By: #### C A, CHM7, IPB, MGO, HFP ####[facility] (DEFAULT)[address] [place] [address] Bilirubin [Mass/Vol] 1.9 mg/dL High <1.5 [facility] Comment on above: Performed By: #### C A, CHM7, IPB, MGO, HFP ####[facility] (DEFAULT)[address] [place] [address] Bilirubin.indirect [Mass/Vol] 0.4 mg/dL High <0.3 [facility] Comment on above: Performed By: #### C A, CHM7, IPB, MGO, HFP ####[facility] (DEFAULT)[address] [place] [address] Protein [Mass/Vol] 6.1 g/dL Low 6.4-8.3 [facility] Comment on above: Performed By: #### Chinedu Feliz, CHM7, IPB, MGO, HFP ####[facility] (DEFAULT)[address] [place] [address] Albumin [Mass/Vol] 3.7 g/dL 3.5 - 5.0 g/dL [facility] ALP [Catalytic activity/Vol] 70 U/L 32 - 126 U/L [facility] ALT [Catalytic activity/Vol] 8 U/L Low 10 - 52 U/L [facility] AST [Catalytic activity/Vol] 21 U/L 10 - 39 U/L [facility] Bilirubin [Mass/Vol] 1.9 mg/dL High NINF - 1.5 mg/dL [facility] Bilirubin.direct [Mass/Vol] 0.4 mg/dL High NINF - 0.3 mg/dL [facility] Protein [Mass/Vol] 6.1 g/dL Low 6.4 - 8.3 g/dL [facility] MAGNESIUMon 01-16-2024 Magnesium [Mass/Vol] 1.7 mg/dL Normal 1.6-2.6 [facility] Comment on above: Performed By: #### C Tray, CHM7, IPB, MGO, HFP ####[facility] (DEFAULT)[address] [place] [address] Magnesium [Mass/Vol] 1.7 mg/dL 1.6 - 2 .6 mg/dL [facility] No Panel Informationon 01-16 Interpretation and review of laboratory results Abnormal [facility] Interpretation and review of laboratory results Normal [facility] PHOSPHATE, INORGANICon 01-16 Phosphorous 4.1 mg/dL Normal 2.2-4.6 [facility] Comment on above: Performed By: #### C A, CHM7, IPB, MGO, HFP ####[facility] (DEFAULT)[address] [place] [address] Phosphate [Mass/Vol] 4.1 mg/dL 2.2 - 4 .6 mg/dL [facility] PT,INR,PTTon 01-16-2024 aPTT Coag (Bld) [Time] 29.6 s Normal 24.0-34.3 [facility] Comment on above: Performed By: #### P TPTT, HSDDI ####[facility] (DEFAULT)[address] [place] [address] INR Coag (PPP) [Relative time] 1.2 {INR} High 0.9-1.1 [facility] Comment on above: Performed By: #### P TPTT, HSDDI ####[facility] (DEFAULT)[address] [place] [address] PT Coag (PPP) [Time] 14.9 s High 11.9-14.2 [facility] Comment on above: Performed By: #### P TPTT, HSDDI ####[facility] (DEFAULT)[address] [place] [address] aPTT Coag (PPP) [Time] 29.6 s [facility] INR Coag (Bld) [Relative time] 1.2 {INR} High 0.9 - 1.1 [facility] Interpretation and review of laboratory results Abnormal [facility] PT Coag (PPP) [Time] 14.9 s High [facility] TACROLIMUS LEVEL, TROUGH (OR E DRUG LEVEL)Ordered By: Jimy Castillo on 01-16-2024 Interpretation and review of laboratory results Normal [facility] Tacrolimus (Bld) [Mass/Vol] 5.7 ng/mL Bone Marrow Transplant: 4.0-12.0, Therapeutic: 5.0-15.0 [facility] Method performed is a chemiluminescent microparticle immunoasssay on the [employer] i2000. The range is based on experience at [facility] and users should be aware that target concentrations vary widely depending on concomitant therapy, time post-transplant, and desired degree of immunosuppression. [facility] TACROLIMUS LEVEL, TROUGH (OR E DRUG LEVEL)on 01-16-2024 Tacrolimus, Trough 5.7 ng/mL Normal Bone Susana ow Transplant: 4.0-12.0, Therapeutic: 5.0-15.0 [facility] Comment on above: Order Comment: Pleas e draw at specified interval PRIOR to dose. Do not hold dose to wait for level. Specimens batched twice per day, (M-) and once per day weekendsMethod performed is a chemiluminescent microparticle immunoasssay on the [employer] i2000.The range is based on experience at [facility] and users should be aware that target concentrations vary widely depending on concomitant therapy, time post-transplant, and desired degree of immunosuppression. Performed By: #### T ACRO ####[facility] (DEFAULT)[address] [place] [address] US ABDOMEN LIVER DOPPLERon 0 01-16-2024 US ABDOMEN LIVER DOPPLER Normal [facility] US.doppler Abdominal vessels on 01-16-2024 IMPRESSION: [...] pleural effusion. Trace right upper quadrant ascites. [facility] Radiology Study observation (narrative) [facility] US.doppler Abdominal vessels Ordered By: Iona Duran on 01-16-2024 [facility] Work Phone: XR CHEST PA AND LATERAL 2 EWSon 01-16-2024 XR CHEST PA AND LATERAL 2 VIEWS Normal [facility] XR Chest PA and Lateralon IMPRESSION: [...] Normal IMPRESSION IMPRESSION: Moderate right pleural effusion. [facility] Radiology Study observation (narrative) [facility] XR Chest PA and LateralOrder ed By: Daisha Patterson on 01-16-2024 [facility] Work Phone: ALL CBC WITH AUTO DIFFon BASOPHILS ABSOLUTE AUTO 0.0 [facility] Basophils/100 WBC (Bld) 0.5 % 0.2 - 2.0 % [facility] Eosinophils/100 WBC (Bld) 2.8 % 0.9 - 7.0 % [facility] Erythrocyte distribution width (RBC) [Ratio] 13.8 % 11.0 - 15.0 % [facility] Hematocrit (Bld) [Volume fraction] 43.7 % 42.0 - 54.0 % [facility] Hemoglobin (Bld) [Mass/Vol] 14.0 g/dL 14.0 - 18.0 g/dL [facility] IMMATURE GRANULOCYTES ABS AUTO 0.01 [facility] Immature granulocytes/100 WBC (Bld) 0.3 % 0.0 - 0.5 % [facility] LYMPHOCYTES ABSOLUTE AUTO 1.5 [facility] Lymphocytes/100 WBC (Bld) 37.5 % 20.5 - 60.0 % [facility] MCH (RBC) [Entitic mass] 28.4 pg 25.9 - 34.0 pg [facility] MCHC (RBC) [Mass/Vol] 32.0 g/dL 29.9 - 35.2 g/dL [facility] MCV (RBC) [Entitic vol] 88.6 fL 80.0 - 94.0 fL [facility] MONOCYTES ABSOLUTE AUTO 0.5 [facility] Monocytes/100 WBC (Bld) 11.9 % 1.7 - 12.0 % [facility] NEUTROPHILS ABSOLUTE AUTO 1.9 [facility] Neutrophils/100 WBC (Bld) 47.0 % 43.0 - 75.0 % [facility] Platelet mean volume (Bld) [Entitic vol] 10.3 fL 9.5 - 13.5 fL [facility] EO # 0.1 [facility] PLT 180 [facility] RBC 4.93 [facility] WBC 4.0 [facility] ALL CBC WITH AUTO DIFFon BASOPHILS ABSOLUTE AUTO 0.0 [facility] Basophils/100 WBC (Bld) 0.5 % 0.2 - 2.0 % [facility] Eosinophils/100 WBC (Bld) 2.6 % 0.9 - 7.0 % [facility] Erythrocyte distribution width (RBC) [Ratio] 13.5 % 11.0 - 15.0 % [facility] Hematocrit (Bld) [Volume fraction] 43.8 % 42.0 - 54.0 % [facility] Hemoglobin (Bld) [Mass/Vol] 14.0 g/dL 14.0 - 18.0 g/dL [facility] IMMATURE GRANULOCYTES ABS AUTO 0.00 [facility] Immature granulocytes/100 WBC (Bld) 0.0 % 0.0 - 0.5 % [facility] Interpretation and review of laboratory results Abnormal [facility] LYMPHOCYTES ABSOLUTE AUTO 1.8 [facility] Lymphocytes/100 WBC (Bld) 45.2 % 20.5 - 60.0 % [facility] MCH (RBC) [Entitic mass] 27.9 pg 25.9 - 34.0 pg [facility] MCHC (RBC) [Mass/Vol] 32.0 g/dL 29.9 - 35.2 g/dL [facility] MCV (RBC) [Entitic vol] 87.4 fL 80.0 - 94.0 fL [facility] MONOCYTES ABSOLUTE AUTO 0.4 [facility] Monocytes/100 WBC (Bld) 9.6 % 1.7 - 12.0 % [facility] NEUTROPHILS ABSOLUTE AUTO 1.6 [facility] Neutrophils/100 WBC (Bld) 42.1 % Low 43.0 - 75.0 % [facility] Platelet mean volume (Bld) [Entitic vol] 9.8 fL 9.5 - 13.5 fL [facility] TBH EO # 0.1 [facility] PLT 180 [facility] TB RBC 5.01 [facility] WBC 3.9 Low [facility] CHEM 7 (LYTES,BUN,CREA,GLUC) on 09-11-2023 Anion gap [Moles/Vol] 13 mmol/L Normal 7-17 [facility] Comment on above: Performed By: #### NATHANIEL RAMÍREZ ####[facility] (DEFAULT)[address] [place] [address] Chloride [Moles/Vol] 111 mmol/L High 98-108 [facility] Comment on above: Performed By: #### NATHANIEL RAMÍREZ ####[facility] (DEFAULT)[address] [place] [address] CO2 [Moles/Vol] 20 mmol/L Low 21-31 [facility] Comment on above: Performed By: #### TJ RAMÍREZ7 ####[facility] (DEFAULT)[address] [place] [address] Creatinine [Mass/Vol] 1.13 mg/dL Normal 0.70-1.30 [facility] Comment on above: Performed By: #### Rod BLOOM CHM7 ####[facility] (DEFAULT)[address] [place] [address] GFR/1.73 sq M.predicted among non-blacks MDRD (S/P/Bld) [Vol rate/Area] 78 mL/min/{1.73_m2} Normal >=60 [facility] Comment on above: Result Comment: Repo rted eGFR is based on the CKD-EPI 2020 equation using creatinine, age, and sex. Performed By: #### Rod BLOOM CHM7 ####[facility] (DEFAULT)[address] [place] [address] Glucose [Mass/Vol] 109 mg/dL High 70-99 [facility] Comment on above: Performed By: #### Rod BLOOM CHM7 ####[facility] (DEFAULT)[address] [place] [address] Osmolality [Osmolality] 295 mosm/kg Normal 278-305 [facility] Comment on above: Performed By: #### Rod BLOOM CHM7 ####[facility] (DEFAULT)[address] [place] [address] Potassium [Moles/Vol] 4.3 mmol/L Normal 3.5-5.0 [facility] Comment on above: Performed By: #### Rod BLOOM CHM7 ####[facility] (DEFAULT)[address] [place] [address] Sodium [Moles/Vol] 140 mmol/L Normal 135-145 [facility] Comment on above: Performed By: #### Rod BLOOM CHM7 ####[facility] (DEFAULT)[address] [facility] [place] [address] Urea nitrogen [Mass/Vol] 16 mg/dL Normal 7-25 [facility] Comment on above: Performed By: #### TJ RAMÍREZ7 ####[facility] (DEFAULT)[address] [place] [address] Urea nitrogen/Creatinine [Mass ratio] 14 mg/mg Normal [facility] Comment on above: Performed By: #### TJ RAMÍREZ7 ####[facility] (DEFAULT)[address] [place] [address] Anion gap [Moles/Vol] 13 mmol/L 7 - 17 mmol/L [facility] Chloride [Moles/Vol] 111 mmol/L High 98 - 10 8 mmol/L [facility] CO2 [Moles/Vol] 20 mmol/L Low 21 - 31 mmol/L [facility] Creatinine [Mass/Vol] 1.13 mg/dL 0.70 - 1.30 mg/dL [facility] eGFR, CKD-EPI, Male 78 - [facility] Glucose [Mass/Vol] 109 mg/dL High 70 - 99 mg/dL [facility] Interpretation and review of laboratory results Abnormal [facility] Osmolality Calc [Osmolality] 295 [facility] Potassium [Moles/Vol] 4.3 mmol/L 3.5 - 5.0 mmol/L [facility] Sodium [Moles/Vol] 140 mmol/L 135 - 145 mmol/L [facility] Urea nitrogen [Mass/Vol] 16 mg/dL 7 - 25 mg/dL [facility] Urea nitrogen/Creatinine [Mass ratio] 14 mg/mg [facility] GLUCOSE POCon 09-11-2023 Glucose [Mass/Vol] 108 mg/dL High 70 - 99 mg/dL [facility] Interpretation and review of laboratory results Abnormal [facility] POC Sample Type [facility] Legionella sp identified Org specific cx Nom (Unsp spec)on 09-11-2023 Bacteria identified Cx Nom (Unsp spec) NO GROWTH DAY 7 OF 7 [facility] MAGNESIUMon 09-11-2023 Magnesium [Mass/Vol] 1.6 mg/dL Normal 1.6-2.6 [facility] Comment on above: Performed By: #### M MERLE CHM7 ####[facility] (DEFAULT)[address] [place] [address] Interpretation and review of laboratory results Normal [facility] Magnesium [Mass/Vol] 1.6 mg/dL 1.6 - 2 .6 mg/dL [facility] No Panel Informationon 09-11 [facility] TACROLIMUS LEVEL, TROUGH (OR E DRUG LEVEL)on 09-11-2023 Interpretation and review of laboratory results Normal [facility] Tacrolimus (Bld) [Mass/Vol] 11.5 ng/mL [facility] Tacrolimus, Trough 11.5 ng/mL Normal [facility] Susana ow Transplant: 4.0-12.0, Therapeutic: 5.0-15.0 [facility] Comment on above: Order Comment: Pleas e draw at specified interval PRIOR to dose. Do not hold dose to wait for level. Specimens batched twice per day, (M-F) and once per day weekendsMethod performed is a chemiluminescent microparticle immunoasssay on the [employer] i2000.The range is based on experience at [facility] and users should be aware that target concentrations vary widely depending on concomitant therapy, time post-transplant, and desired degree of immunosuppression. Performed By: #### T ACRO ####[facility] (DEFAULT)[address] [place] [address] CBC,PLATELETSon 09-10-2023 Hematocrit (Bld) [Volume fraction] 40.0 % Normal 39.6-48.8 [facility] Comment on above: Performed By: #### H EMOGC ####[facility] (DEFAULT)[address] [place] [address] Hemoglobin (Bld) [Mass/Vol] 12.7 g/dL Low 13.4-16.8 [facility] Comment on above: Performed By: #### H EMOGC ####[facility] (DEFAULT)[address] [place] [address] MCV (RBC) [Entitic vol] 86.0 fL Normal 79.0-94.5 [facility] Comment on above: Performed By: #### H EMOGC ####[facility] (DEFAULT)[address] [place] [address] Mean Cell Hgb 27.3 pg Normal 26.1-33.3 [facility] Comment on above: Performed By: #### H EMOGC ####[facility] (DEFAULT)[address] [place] [address] Mean Cell Hgb Conc 31.8 g/dL Low 31.9-36.5 [facility] Comment on above: Performed By: #### H EMOGC ####[facility] (DEFAULT)[address] [place] [address] Platelet mean volume (Bld) [Entitic vol] 9.5 fL Normal 8.7-12.3 [facility] Comment on above: Performed By: #### H EMOGC ####[facility] (DEFAULT)[address] [place] [address] Platelets (Bld) [#/Vol] 225 10*3/uL Normal 146-337 [facility] Comment on above: Performed By: #### H EMOGC ####[facility] (DEFAULT)[address] [place] [address] RBC (Bld) [#/Vol] 4.65 10*6/uL Normal 4.38-5.83 [facility] Comment on above: Performed By: #### H EMOGC ####[facility] (DEFAULT)[address] [place] [address] RBC Distribution 13.9 % Normal 10.9-14.3 [facility] Comment on above: Performed By: #### H [facility] ####[facility] (DEFAULT)[address] [place] [address] WBC (Bld) [#/Vol] 6.52 10*3/uL Normal 3.73-10.10 [facility] Comment on above: Performed By: #### H [facility] ####[facility] (DEFAULT)[address] [place] [address] Erythrocyte distribution width (RBC) [Ratio] 13.9 % 10.9 - 14.3 % [facility] Hematocrit (Bld) [Volume fraction] 40.0 % 39.6 - 48.8 % [facility] Hemoglobin (Bld) [Mass/Vol] 12.7 g/dL Low 13.4 - 16.8 g/dL [facility] Interpretation and review of laboratory results Abnormal [facility] MCH (RBC) [Entitic mass] 27.3 pg 26.1 - 33.3 pg [facility] MCHC (RBC) [Mass/Vol] 31.8 g/dL Low 31.9 - 36.5 g/dL [facility] MCV (RBC) [Entitic vol] 86.0 fL 79.0 - 94.5 fL [facility] Platelet mean volume (Bld) [Entitic vol] 9.5 fL 8.7 - 12.3 fL [facility] Platelets (Bld) [#/Vol] 225 10*3/uL 146 - 337 K/uL [facility] RBC (Bld) [#/Vol] 4.65 10*6/uL [facility] WBC (Bld) [#/Vol] 6.52 10*3/uL 3.73 - 10. 10 K/uL [facility] CHEM 7 (LYTES,BUN,CREA,GLUC) on 09-10-2023 Anion gap [Moles/Vol] 13 mmol/L Normal 7-17 [facility] Comment on above: Performed By: #### M NATHANIEL BLOOM, HFP ####[facility] (DEFAULT)[address] [place], [place] [address], [place] [address] Chloride [Moles/Vol] 111 mmol/L High 98-108 [facility] Comment on above: Performed By: #### M NATHANIEL BLOOM, HFP ####[facility] (DEFAULT)[address] [place], [place] [address], [place] [address] CO2 [Moles/Vol] 20 mmol/L Low 21-31 [facility] Comment on above: Performed By: #### M NATHANIEL BLOOM, HFP ####[facility] (DEFAULT)[address] [place] [address], [place] [address] Creatinine [Mass/Vol] 1.27 mg/dL Normal 0.70-1.30 [facility] Comment on above: Performed By: #### NATHANIEL RAMÍREZ, HFP ####[facility] (DEFAULT)[address] [place] [address], [place] [address] GFR/1.73 sq M.predicted among non-blacks MDRD (S/P/Bld) [Vol rate/Area] 68 mL/min/{1.73_m2} Normal >=60 [facility] Comment on above: Result Comment: Repo rted eGFR is based on the CKD-EPI 2020 equation using creatinine, age, and sex. Performed By: #### NATHANIEL RAMÍREZ, HFP ####[facility] (DEFAULT)[address] [place] [address], [place] [address] Glucose [Mass/Vol] 100 mg/dL High 70-99 [facility] Comment on above: Performed By: #### NATHANIEL RAMÍREZ, HFP ####[facility] (DEFAULT)[address] [place] [address], [place] [address] Osmolality [Osmolality] 293 mosm/kg Normal 278-305 [facility] Comment on above: Performed By: #### NATHANIEL RAMÍREZ, HFP ####[facility] (DEFAULT)[address] [place] [address] Potassium [Moles/Vol] 4.4 mmol/L Normal 3.5-5.0 [facility] Comment on above: Performed By: #### Rod BLOOM CHM7, HFP ####[facility] (DEFAULT)[address] [place] [address] Sodium [Moles/Vol] 140 mmol/L Normal 135-145 [facility] Comment on above: Performed By: #### Rod BLOOM CHM7, HFP ####[facility] (DEFAULT)[address] [place] [address] Urea nitrogen [Mass/Vol] 12 mg/dL Normal 7-25 [facility] Comment on above: Performed By: #### Rod BLOOM CHM7, HFP ####[facility] (DEFAULT)[address] [place] [address] Urea nitrogen/Creatinine [Mass ratio] 9 mg/mg Normal [facility] Comment on above: Performed By: #### Rod BLOOM CHM7, HFP ####[facility] (DEFAULT)[address] [place] [address] Anion gap [Moles/Vol] 13 mmol/L 7 - 17 mmol/L [facility] Chloride [Moles/Vol] 111 mmol/L High 98 - 10 8 mmol/L [facility] CO2 [Moles/Vol] 20 mmol/L Low 21 - 31 mmol/L [facility] Creatinine [Mass/Vol] 1.27 mg/dL 0.70 - 1.30 mg/dL [facility] eGFR, CKD-EPI, Male 68 - PINF [facility] Glucose [Mass/Vol] 100 mg/dL High 70 - 99 mg/dL [facility] Osmolality Calc [Osmolality] 293 [facility] Potassium [Moles/Vol] 4.4 mmol/L 3.5 - 5.0 mmol/L [facility] Sodium [Moles/Vol] 140 mmol/L 135 - 145 mmol/L [facility] Urea nitrogen [Mass/Vol] 12 mg/dL 7 - 25 mg/dL [facility] Urea nitrogen/Creatinine [Mass ratio] 9 mg/mg [facility] HEPATIC FUNCTION PANELon Albumin [Mass/Vol] 3.3 g/dL Low 3.5-5.0 [facility] Comment on above: Performed By: #### NATHANIEL RAMÍREZ, HFP ####[facility] (DEFAULT)[address] [place] [address] ALP [Catalytic activity/Vol] 143 U/L High 32-126 [facility] Comment on above: Performed By: #### NATHANIEL RAMÍREZ, HFP ####[facility] (DEFAULT)[address] [place] [address] ALT [Catalytic activity/Vol] 28 U/L Normal 10-52 [facility] Comment on above: Performed By: #### Rod BLOOM CHM7, HFP ####[facility] (DEFAULT)[address] [place] [address] AST [Catalytic activity/Vol] 29 U/L Normal 10-39 [facility] Comment on above: Performed By: #### Rod BLOOM CHM7, HFP ####[facility] (DEFAULT)[address] [place] [address] Bilirubin [Mass/Vol] 0.9 mg/dL Normal <1.5 [facility] Comment on above: Performed By: #### Rod BLOOM CHM7, HFP ####[facility] (DEFAULT)[address] [place] [address] Bilirubin.indirect [Mass/Vol] 0.2 mg/dL Normal <0.3 [facility] Comment on above: Performed By: #### Rod BLOOM CHM7, HFP ####[facility] (DEFAULT)[address] [place] [address] Protein [Mass/Vol] 6.8 g/dL Normal 6.4-8.3 [facility] Comment on above: Performed By: #### NATHANIEL RAMÍREZ, HFP ####[facility] (DEFAULT)[address] [place] [address] Albumin [Mass/Vol] 3.3 g/dL Low 3.5 - 5.0 g/dL [facility] ALP [Catalytic activity/Vol] 143 U/L High 32 - 126 U/L [facility] ALT [Catalytic activity/Vol] 28 U/L 10 - 52 U/L [facility] AST [Catalytic activity/Vol] 29 U/L 10 - 39 U/L [facility] Bilirubin [Mass/Vol] 0.9 mg/dL NINF - 1.5 mg/dL [facility] Bilirubin.direct [Mass/Vol] 0.2 mg/dL NINF - 0.3 mg/dL [facility] Protein [Mass/Vol] 6.8 g/dL 6.4 - 8.3 g/dL [facility] MAGNESIUMon 09-10-2023 Magnesium [Mass/Vol] 1.9 mg/dL Normal 1.6-2.6 [facility] Comment on above: Performed By: #### NATHANIEL RAMÍREZ, HFP ####[facility] (DEFAULT)[address] [place] [address] Interpretation and review of laboratory results Normal [facility] Magnesium [Mass/Vol] 1.9 mg/dL 1.6 - 2 .6 mg/dL [facility] No Panel Informationon 09-10 Interpretation and review of laboratory results Abnormal [facility] TACROLIMUS LEVEL, TROUGH (OR E DRUG LEVEL)Ordered By: Jimy Castillo on 09-10-2023 Interpretation and review of laboratory results Normal [facility] Tacrolimus (Bld) [Mass/Vol] 11.8 ng/mL [facility] TACROLIMUS LEVEL, TROUGH (OR E DRUG LEVEL)on 09-10-2023 Tacrolimus, Trough 11.8 ng/mL Normal Bone Susana ow Transplant: 4.0-12.0, Therapeutic: 5.0-15.0 [facility] Comment on above: Order Comment: Dilan gregory draw at specified interval PRIOR to dose. Do not hold dose to wait for level. Specimens batched twice per day, (M-F) and once per day weekendsMethod performed is a chemiluminescent microparticle immunoasssay on the [employer] i2000.The range is based on experience at [facility] and users should be aware that target concentrations vary widely depending on concomitant therapy, time post-transplant, and desired degree of immunosuppression. Performed By: #### T ACRO ####[facility] (DEFAULT)[address] [place] [address] CHEM 7 (LYTES,BUN,CREA,GLUC) on 09-09-2023 Anion gap [Moles/Vol] 14 mmol/L Normal 7-17 [facility] Comment on above: Performed By: #### JO ANN RAMÍREZ, CHM7 ####[facility] (DEFAULT)[address] [place] [address] Chloride [Moles/Vol] 113 mmol/L High 98-108 [facility] Comment on above: Performed By: #### JO ANN RAMÍREZ, CHM7 ####[facility] (DEFAULT)[address] [place] [address] CO2 [Moles/Vol] 18 mmol/L Low 21-31 [facility] Comment on above: Performed By: #### JO ANN RAMÍREZ, CHM7 ####[facility] (DEFAULT)[address] [place] [address] Creatinine [Mass/Vol] 1.03 mg/dL Normal 0.70-1.30 [facility] Comment on above: Performed By: #### JO ANN RAMÍREZ, CHM7 ####[facility] (DEFAULT)[address] [place] [address] GFR/1.73 sq M.predicted among non-blacks MDRD (S/P/Bld) [Vol rate/Area] 87 mL/min/{1.73_m2} Normal >=60 [facility] Comment on above: Result Comment: Repo rted eGFR is based on the CKD-EPI 2020 equation using creatinine, age, and sex. Performed By: #### JO ANN RAMÍREZ CHM7 ####[facility] (DEFAULT)[address] [place] [address] Glucose [Mass/Vol] 106 mg/dL High 70-99 [facility] Comment on above: Performed By: #### JO ANN RAMÍREZ CHM7 ####[facility] (DEFAULT)[address] [place] [address] Osmolality [Osmolality] 294 mosm/kg Normal 278-305 [facility] Comment on above: Performed By: #### JO ANN RAMÍREZ CHM7 ####[facility] (DEFAULT)[address] [place] [address] Potassium [Moles/Vol] 4.0 mmol/L Normal 3.5-5.0 [facility] Comment on above: Performed By: #### JO ANN RAMÍREZ, CHM7 ####[facility] (DEFAULT)[address] [place] [address] Sodium [Moles/Vol] 141 mmol/L Normal 135-145 [facility] Comment on above: Performed By: #### JO ANN RAMÍREZ, CHM7 ####[facility] (DEFAULT)[address] [place] [address] Urea nitrogen [Mass/Vol] 10 mg/dL Normal 7-25 [facility] Comment on above: Performed By: #### JO ANN RAMÍREZ, CHM7 ####[facility] (DEFAULT)[address] [place] [address] Urea nitrogen/Creatinine [Mass ratio] 10 mg/mg Normal [facility] Comment on above: Performed By: #### M JO ANN BLOOM CHM7 ####[facility] (DEFAULT)[address] [place] [address] Anion gap [Moles/Vol] 14 mmol/L 7 - 17 mmol/L [facility] Chloride [Moles/Vol] 113 mmol/L High 98 - 10 8 mmol/L [facility] CO2 [Moles/Vol] 18 mmol/L Low 21 - 31 mmol/L [facility] Creatinine [Mass/Vol] 1.03 mg/dL 0.70 - 1.30 mg/dL [facility] eGFR, CKD-EPI, Male 87 - [facility] Glucose [Mass/Vol] 106 mg/dL High 70 - 99 mg/dL [facility] Interpretation and review of laboratory results Abnormal [facility] Osmolality Calc [Osmolality] 294 [facility] Potassium [Moles/Vol] 4.0 mmol/L 3.5 - 5.0 mmol/L [facility] Sodium [Moles/Vol] 141 mmol/L 135 - 145 mmol/L [facility] Urea nitrogen [Mass/Vol] 10 mg/dL 7 - 25 mg/dL [facility] [facility]/Creatinine [Mass ratio] 10 mg/mg [facility] MAGNESIUMon 09-09-2023 Magnesium [Mass/Vol] 1.6 mg/dL Normal 1.6-2.6 [facility] Comment on above: Performed By: #### M JO ANN BLOOM CHM7 ####[facility] (DEFAULT)[address] [place] [address] Magnesium [Mass/Vol] 1.6 mg/dL 1.6 - 2 .6 mg/dL [facility] No Panel Informationon 09-09 Interpretation and review of laboratory results Normal [facility] PHOSPHATE, INORGANICon 09-09 Phosphorous 3.8 mg/dL Normal 2.2-4.6 [facility] Comment on above: Performed By: #### M GO, IPB, CHM7 ####[facility] (DEFAULT)[address] [place] [address] Phosphate [Mass/Vol] 3.8 mg/dL 2.2 - 4 .6 mg/dL [facility] TACROLIMUS LEVEL, TROUGH (OR E DRUG LEVEL)on 09-09-2023 Interpretation and review of laboratory results Normal [facility] Tacrolimus (Bld) [Mass/Vol] 9.2 ng/mL [facility] Tacrolimus, Trough 9.2 ng/mL Normal Bone Susana ow Transplant: 4.0-12.0, Therapeutic: 5.0-15.0 [facility] Comment on above: Order Comment: Pleas e draw at specified interval PRIOR to dose. Do not hold dose to wait for level. Specimens batched twice per day, (M-F) and once per day weekendsMethod performed is a chemiluminescent microparticle immunoasssay on the [employer] i2000.The range is based on experience at [facility] and users should be aware that target concentrations vary widely depending on concomitant therapy, time post-transplant, and desired degree of immunosuppression. Performed By: #### T ACRO ####[facility] (DEFAULT)[address] [place] [address] CBC,PLATELETSon 09-08-2023 Hematocrit (Bld) [Volume fraction] 36.1 % Low 39.6-48.8 [facility] Comment on above: Performed By: #### [facility] ####[facility] (DEFAULT)[address] [place] [address] Hemoglobin (Bld) [Mass/Vol] 11.6 g/dL Low 13.4-16.8 [facility] Comment on above: Performed By: #### [facility] ####[facility] (DEFAULT)[address] [place] [address] MCV (RBC) [Entitic vol] 85.1 fL Normal 79.0-94.5 [facility] Comment on above: Performed By: #### [facility] ####[facility] (DEFAULT)[address] [place] [address] Mean Cell Hgb 27.4 pg Normal 26.1-33.3 [facility] Comment on above: Performed By: #### H EMOGC ####[facility] (DEFAULT)[address] [place] [address] Mean Cell Hgb Conc 32.1 g/dL Normal 31.9-36.5 [facility] Comment on above: Performed By: #### H EMOGC ####[facility] (DEFAULT)[address] [place] [address] Platelet mean volume (Bld) [Entitic vol] 9.5 fL Normal 8.7-12.3 [facility] Comment on above: Performed By: #### H EMOGC ####[facility] (DEFAULT)[address] [place] [address] Platelets (Bld) [#/Vol] 182 10*3/uL Normal 146-337 [facility] Comment on above: Performed By: #### H EMOGC ####[facility] (DEFAULT)[address] [place] [address] RBC (Bld) [#/Vol] 4.24 10*6/uL Low 4.38-5.83 [facility] Comment on above: Performed By: #### H EMOGC ####[facility] (DEFAULT)[address] [place] [address] RBC Distribution 13.6 % Normal 10.9-14.3 [facility] Comment on above: Performed By: #### H EMOGC ####[facility] (DEFAULT)[address] [place] [address] WBC (Bld) [#/Vol] 4.59 10*3/uL Normal 3.73-10.10 [facility] Comment on above: Performed By: #### H EMOGC ####[facility] (DEFAULT)[address] [place] [address] Erythrocyte distribution width (RBC) [Ratio] 13.6 % 10.9 - 14.3 % [facility] Hematocrit (Bld) [Volume fraction] 36.1 % Low 39.6 - 48.8 % [facility] Hemoglobin (Bld) [Mass/Vol] 11.6 g/dL Low 13.4 - 16.8 g/dL [facility] Interpretation and review of laboratory results Abnormal [facility] MCH (RBC) [Entitic mass] 27.4 pg 26.1 - 33.3 pg [facility] MCHC (RBC) [Mass/Vol] 32.1 g/dL 31.9 - 36.5 g/dL [facility] MCV (RBC) [Entitic vol] 85.1 fL 79.0 - 94.5 fL [facility] Platelet mean volume (Bld) [Entitic vol] 9.5 fL 8.7 - 12.3 fL [facility] Platelets (Bld) [#/Vol] 182 10*3/uL 146 - 337 K/uL [facility] RBC (Bld) [#/Vol] 4.24 10*6/uL Low [facility] WBC (Bld) [#/Vol] 4.59 10*3/uL 3.73 - 10. 10 K/uL [facility] CHEM 7 (LYTES,BUN,CREA,GLUC) on 09-08-2023 Anion gap [Moles/Vol] 12 mmol/L Normal 7-17 [facility] Comment on above: Performed By: #### M MERLE, IPB, HFP, CHM7 ####[facility] (DEFAULT)[address] [place] [address] Chloride [Moles/Vol] 113 mmol/L High 98-108 [facility] Comment on above: Performed By: #### M MERLE, IPB, HFP, CHM7 ####[facility] (DEFAULT)[address] [place] [address] CO2 [Moles/Vol] 21 mmol/L Normal 21-31 [facility] Comment on above: Performed By: #### M GO, IPB, HFP, CHM7 ####[facility] (DEFAULT)[address] [place] [address] Creatinine [Mass/Vol] 1.14 mg/dL Normal 0.70-1.30 [facility] Comment on above: Performed By: #### M GO, IPB, HFP, CHM7 ####[facility] (DEFAULT)[address] [place] [address], [place] [address] GFR/1.73 sq M.predicted among non-blacks MDRD (S/P/Bld) [Vol rate/Area] 77 mL/min/{1.73_m2} Normal >=60 [facility] Comment on above: Result Comment: Repo rted eGFR is based on the CKD-EPI 2020 equation using creatinine, age, and sex. Performed By: #### M GO, IPB, HFP, CHM7 ####[facility] (DEFAULT)[address] [place] [address], [place] [address] Glucose [Mass/Vol] 107 mg/dL High 70-99 [facility] Comment on above: Performed By: #### M GO, IPB, HFP, CHM7 ####[facility] (DEFAULT)[address] [place], [place] [address], [place] [address] Osmolality [Osmolality] 296 mosm/kg Normal 278-305 [facility] Comment on above: Performed By: #### M GO, IPB, HFP, CHM7 ####[facility] (DEFAULT)[address] [place] [address] Potassium [Moles/Vol] 3.9 mmol/L Normal 3.5-5.0 [facility] Comment on above: Performed By: #### M GO, IPB, HFP, CHM7 ####[facility] (DEFAULT)[address] [place] [address] Sodium [Moles/Vol] 142 mmol/L Normal 135-145 [facility] Comment on above: Performed By: #### M MERLE IPBerlin, HFP, CHM7 ####[facility] (DEFAULT)[address] [facility] [place] [address] Urea nitrogen [Mass/Vol] 11 mg/dL Normal 7-25 [facility] Comment on above: Performed By: #### M MERLE IPBerlin, HFP, CHM7 ####[facility] (DEFAULT)[address] [facility] [place] [address] Urea nitrogen/Creatinine [Mass ratio] 10 mg/mg Normal [facility] Comment on above: Performed By: #### M MERLE IPB, HFP, CHM7 ####[facility] (DEFAULT)[address] [place] [address] Anion gap [Moles/Vol] 12 mmol/L 7 - 17 mmol/L [facility] Chloride [Moles/Vol] 113 mmol/L High 98 - 10 8 mmol/L [facility] CO2 [Moles/Vol] 21 mmol/L 21 - 31 mmol/L [facility] Creatinine [Mass/Vol] 1.14 mg/dL 0.70 - 1.30 mg/dL [facility] eGFR, CKD-EPI, Male 77 [facility] Glucose [Mass/Vol] 107 mg/dL High 70 - 99 mg/dL [facility] Osmolality Calc [Osmolality] 296 [facility] Potassium [Moles/Vol] 3.9 mmol/L 3.5 - 5.0 mmol/L [facility] Sodium [Moles/Vol] 142 mmol/L 135 - 145 mmol/L [facility] Urea nitrogen [Mass/Vol] 11 mg/dL 7 - 25 mg/dL [facility] Urea nitrogen/Creatinine [Mass ratio] 10 mg/mg [facility] HEPATIC FUNCTION PANELon Albumin [Mass/Vol] 2.9 g/dL Low 3.5-5.0 [facility] Comment on above: Performed By: #### M GO, IPB, HFP, CHM7 ####[facility] (DEFAULT)[address] [place] [address] ALP [Catalytic activity/Vol] 133 U/L High 32-126 [facility] Comment on above: Performed By: #### M GO, IPB, HFP, CHM7 ####[facility] (DEFAULT)[address] [place] [address] ALT [Catalytic activity/Vol] 23 U/L Normal 10-52 [facility] Comment on above: Performed By: #### M GO, IPB, HFP, CHM7 ####[facility] (DEFAULT)[address] [place] [address] AST [Catalytic activity/Vol] 23 U/L Normal 10-39 [facility] Comment on above: Performed By: #### M GO, IPB, HFP, CHM7 ####[facility] (DEFAULT)[address] [place] [address] Bilirubin [Mass/Vol] 0.8 mg/dL Normal <1.5 [facility] Comment on above: Performed By: #### M GO, IPB, HFP, CHM7 ####[facility] (DEFAULT)[address] [place] [address] Bilirubin.indirect [Mass/Vol] 0.2 mg/dL Normal <0.3 [facility] Comment on above: Performed By: #### M GO, IPB, HFP, CHM7 ####[facility] (DEFAULT)[address] [place] [address] Protein [Mass/Vol] 5.9 g/dL Low 6.4-8.3 [facility] Comment on above: Performed By: #### M GO, IPB, HFP, CHM7 ####[facility] (DEFAULT)[address] [place] [address] Albumin [Mass/Vol] 2.9 g/dL Low 3.5 - 5.0 g/dL [facility] ALP [Catalytic activity/Vol] 133 U/L High 32 - 126 U/L [facility] ALT [Catalytic activity/Vol] 23 U/L 10 - 52 U/L [facility] AST [Catalytic activity/Vol] 23 U/L 10 - 39 U/L [facility] Bilirubin [Mass/Vol] 0.8 mg/dL NINF - 1.5 mg/dL [facility] Bilirubin.direct [Mass/Vol] 0.2 mg/dL NINF - 0.3 mg/dL [facility] Protein [Mass/Vol] 5.9 g/dL Low 6.4 - 8.3 g/dL [facility] MAGNESIUMon 09-08-2023 Magnesium [Mass/Vol] 1.8 mg/dL Normal 1.6-2.6 [facility] Comment on above: Performed By: #### M MERLE, IPB, HFP, CHM7 ####[facility] (DEFAULT)[address] [place] [address] Interpretation and review of laboratory results Normal [facility] Magnesium [Mass/Vol] 1.8 mg/dL 1.6 - 2 .6 mg/dL [facility] No Panel Informationon 09-08 Interpretation and review of laboratory results Abnormal [facility] PHOSPHATE, INORGANICon 09-08 Interpretation and review of laboratory results Normal [facility] Phosphate [Mass/Vol] 4.1 mg/dL 2.2 - 4 .6 mg/dL [facility] Phosphorous 4.1 mg/dL Normal 2.2-4.6 [facility] Comment on above: Performed By: #### M MERLE, IPB, HFP, CHM7 ####[facility] (DEFAULT)[address] [place] [address] TACROLIMUS LEVEL, TROUGH (OR E DRUG LEVEL)on 09-08-2023 Interpretation and review of laboratory results Normal [facility] Tacrolimus (Bld) [Mass/Vol] 8.5 ng/mL [facility] Tacrolimus, Trough 8.5 ng/mL Normal Bone Susana ow Transplant: 4.0-12.0, Therapeutic: 5.0-15.0 [facility] Comment on above: Order Comment: Pleas e draw at specified interval PRIOR to dose. Do not hold dose to wait for level. Specimens batched twice per day, (M-F) and once per day weekendsMethod performed is a chemiluminescent microparticle immunoasssay on the [employer] i2000.The range is based on experience at [facility] and users should be aware that target concentrations vary widely depending on concomitant therapy, time post-transplant, and desired degree of immunosuppression. Performed By: #### T ACRO ####[facility] (DEFAULT)[address] [place] [address] CBC,PLATELETSon 09-07-2023 Hematocrit (Bld) [Volume fraction] 37.1 % Low 39.6-48.8 [facility] Comment on above: Performed By: #### [facility] ####[facility] (DEFAULT)[address] [place] [address] Hemoglobin (Bld) [Mass/Vol] 11.9 g/dL Low 13.4-16.8 [facility] Comment on above: Performed By: #### [facility] ####[facility] (DEFAULT)[address] [place] [address] MCV (RBC) [Entitic vol] 86.5 fL Normal 79.0-94.5 [facility] Comment on above: Performed By: #### [facility] ####[facility] (DEFAULT)[address] [place] [address] Mean Cell Hgb 27.7 pg Normal 26.1-33.3 [facility] Comment on above: Performed By: #### H EMO ####[facility] (DEFAULT)[address] [place] [address] Mean Cell Hgb Conc 32.1 g/dL Normal 31.9-36.5 [facility] Comment on above: Performed By: #### H EMOGC ####[facility] (DEFAULT)[address] [place] [address] Platelet mean volume (Bld) [Entitic vol] 9.6 fL Normal 8.7-12.3 [facility] Comment on above: Performed By: #### H EMOGC ####[facility] (DEFAULT)[address] [place] [address] Platelets (Bld) [#/Vol] 176 10*3/uL Normal 146-337 [facility] Comment on above: Performed By: #### H EMO ####[facility] (DEFAULT)[address] [place] [address] RBC (Bld) [#/Vol] 4.29 10*6/uL Low 4.38-5.83 [facility] Comment on above: Performed By: #### H EMO ####[facility] (DEFAULT)[address] [place] [address] RBC Distribution 13.5 % Normal 10.9-14.3 [facility] Comment on above: Performed By: #### H EMOGC ####[facility] (DEFAULT)[address] [place] [address] WBC (Bld) [#/Vol] 4.10 10*3/uL Normal 3.73-10.10 [facility] Comment on above: Performed By: #### H EMOGC ####[facility] (DEFAULT)[address] [place] [address] Erythrocyte distribution width (RBC) [Ratio] 13.5 % 10.9 - 14.3 % [facility] Hematocrit (Bld) [Volume fraction] 37.1 % Low 39.6 - 48.8 % [facility] Hemoglobin (Bld) [Mass/Vol] 11.9 g/dL Low 13.4 - 16.8 g/dL [facility] Interpretation and review of laboratory results Abnormal [facility] MCH (RBC) [Entitic mass] 27.7 pg 26.1 - 33.3 pg [facility] MCHC (RBC) [Mass/Vol] 32.1 g/dL 31.9 - 36.5 g/dL [facility] MCV (RBC) [Entitic vol] 86.5 fL 79.0 - 94.5 fL [facility] Platelet mean volume (Bld) [Entitic vol] 9.6 fL 8.7 - 12.3 fL [facility] Platelets (Bld) [#/Vol] 176 10*3/uL 146 - 337 K/uL [facility] RBC (Bld) [#/Vol] 4.29 10*6/uL Low [facility] WBC (Bld) [#/Vol] 4.10 10*3/uL 3.73 - 10. 10 K/uL [facility] CHEM 7 (LYTES,BUN,CREA,GLUC) on 09-07-2023 Anion gap [Moles/Vol] 13 mmol/L Normal 7-17 [facility] Comment on above: Performed By: #### C HM7, IPB, MGO, HFP ####[facility] (DEFAULT)[address] [place] [address] Chloride [Moles/Vol] 113 mmol/L High 98-108 [facility] Comment on above: Performed By: #### C HM7, IPB, MGO, HFP ####[facility] (DEFAULT)[address] [place] [address] CO2 [Moles/Vol] 19 mmol/L Low 21-31 [facility] Comment on above: Performed By: #### C HM7, IPB, MGO, HFP ####[facility] (DEFAULT)[address] [facility] [place] [address] Creatinine [Mass/Vol] 1.22 mg/dL Normal 0.70-1.30 [facility] Comment on above: Performed By: #### C HM7, IPB, MGO, HFP ####[facility] (DEFAULT)[address] [place] [address] GFR/1.73 sq M.predicted among non-blacks MDRD (S/P/Bld) [Vol rate/Area] 71 mL/min/{1.73_m2} Normal >=60 [facility] Comment on above: Result Comment: Repo rted eGFR is based on the CKD-EPI 2020 equation using creatinine, age, and sex. Performed By: #### C HM7, IPB, MGO, HFP ####[facility] (DEFAULT)[address] [place] [address], [place] [address] Glucose [Mass/Vol] 107 mg/dL High 70-99 [facility] Comment on above: Performed By: #### C HM7, IPB, MGO, HFP ####[facility] (DEFAULT)[address] [place] [address], [place] [address] Osmolality [Osmolality] 295 mosm/kg Normal 278-305 [facility] Comment on above: Performed By: #### C HM7, IPB, MGO, HFP ####[facility] (DEFAULT)[address] [place], [place] [address], [place] [address] Potassium [Moles/Vol] 3.9 mmol/L Normal 3.5-5.0 [facility] Comment on above: Performed By: #### C HM7, IPB, MGO, HFP ####[facility] (DEFAULT)[address] [place], [place] [address], [place] [address] Sodium [Moles/Vol] 141 mmol/L Normal 135-145 [facility] Comment on above: Performed By: #### C HM7, IPB, MGO, HFP ####[facility] (DEFAULT)[address] [facility] [place] [address] Urea nitrogen [Mass/Vol] 13 mg/dL Normal 7-25 [facility] Comment on above: Performed By: #### C HM7, IPB, MGO, HFP ####[facility] (DEFAULT)[address] [place] [address] Urea nitrogen/Creatinine [Mass ratio] 11 mg/mg Normal [facility] Comment on above: Performed By: #### C HM7, IPB, MGO, HFP ####[facility] (DEFAULT)[address] [place] [address] Anion gap [Moles/Vol] 13 mmol/L 7 - 17 mmol/L [facility] Chloride [Moles/Vol] 113 mmol/L High 98 - 10 8 mmol/L [facility] CO2 [Moles/Vol] 19 mmol/L Low 21 - 31 mmol/L [facility] Creatinine [Mass/Vol] 1.22 mg/dL 0.70 - 1.30 mg/dL [facility] eGFR, CKD-EPI, Male 71 - PINF [facility] Glucose [Mass/Vol] 107 mg/dL High 70 - 99 mg/dL [facility] Osmolality Calc [Osmolality] 295 [facility] Potassium [Moles/Vol] 3.9 mmol/L 3.5 - 5.0 mmol/L [facility] Sodium [Moles/Vol] 141 mmol/L 135 - 145 mmol/L [facility] Urea nitrogen [Mass/Vol] 13 mg/dL 7 - 25 mg/dL [facility] Urea nitrogen/Creatinine [Mass ratio] 11 mg/mg [facility] HEPATIC FUNCTION PANELon Albumin [Mass/Vol] 2.9 g/dL Low 3.5-5.0 [facility] Comment on above: Performed By: #### C HM7, IPB, MGO, HFP ####[facility] (DEFAULT)[address] [place] [address] ALP [Catalytic activity/Vol] 111 U/L Normal 32-126 [facility] Comment on above: Performed By: #### C HM7, IPB, MGO, HFP ####[facility] (DEFAULT)[address] [place] [address] ALT [Catalytic activity/Vol] 18 U/L Normal 10-52 [facility] Comment on above: Performed By: #### C HM7, IPB, MGO, HFP ####[facility] (DEFAULT)[address] [place] [address] AST [Catalytic activity/Vol] 23 U/L Normal 10-39 [facility] Comment on above: Performed By: #### C HM7, IPB, MGO, HFP ####[facility] (DEFAULT)[address] [place] [address] Bilirubin [Mass/Vol] 0.8 mg/dL Normal <1.5 [facility] Comment on above: Performed By: #### C HM7, IPB, MGO, HFP ####[facility] (DEFAULT)[address] [place] [address] Bilirubin.indirect [Mass/Vol] 0.3 mg/dL High <0.3 [facility] Comment on above: Performed By: #### C HM7, IPB, MGO, HFP ####[facility] (DEFAULT)[address] [place] [address] Protein [Mass/Vol] 6.0 g/dL Low 6.4-8.3 [facility] Comment on above: Performed By: #### C HM7, IPB, MGO, HFP ####[facility] (DEFAULT)[address] [place] [address] Albumin [Mass/Vol] 2.9 g/dL Low 3.5 - 5.0 g/dL [facility] ALP [Catalytic activity/Vol] 111 U/L 32 - 126 U/L [facility] ALT [Catalytic activity/Vol] 18 U/L 10 - 52 U/L [facility] AST [Catalytic activity/Vol] 23 U/L 10 - 39 U/L [facility] Bilirubin [Mass/Vol] 0.8 mg/dL NINF - 1.5 mg/dL [facility] Bilirubin.direct [Mass/Vol] 0.3 mg/dL High NINF - 0.3 mg/dL [facility] Protein [Mass/Vol] 6.0 g/dL Low 6.4 - 8.3 g/dL [facility] MAGNESIUMon 09-07-2023 Magnesium [Mass/Vol] 1.7 mg/dL Normal 1.6-2.6 [facility] Comment on above: Performed By: #### C JASMYNE, JO ANN, MGRogelio, HFP ####[facility] (DEFAULT)[address] [place] [address] Interpretation and review of laboratory results Normal [facility] Magnesium [Mass/Vol] 1.7 mg/dL 1.6 - 2 .6 mg/dL [facility] No Panel Informationon 09-07 Interpretation and review of laboratory results Abnormal [facility] PHOSPHATE, INORGANICon 09-07 Phosphorous 4.4 mg/dL Normal 2.2-4.6 [facility] Comment on above: Performed By: #### C JASMYNE, CASTROB, MGO, HFP ####[facility] (DEFAULT)[address] [place] [address] Interpretation and review of laboratory results Normal [facility] Phosphate [Mass/Vol] 4.4 mg/dL 2.2 - 4 .6 mg/dL [facility] TACROLIMUS LEVEL, TROUGH (OR E DRUG LEVEL)Ordered By: Elizabeth Maldonado on 09-07-2023 Interpretation and review of laboratory results Normal [facility] Tacrolimus (Bld) [Mass/Vol] 7.8 ng/mL [facility] TACROLIMUS LEVEL, TROUGH (OR E DRUG LEVEL)on 09-07-2023 Tacrolimus, Trough 7.8 ng/mL Normal Bone Susana ow Transplant: 4.0-12.0, Therapeutic: 5.0-15.0 [facility] Comment on above: Order Comment: Pleas e draw at specified interval PRIOR to dose. Do not hold dose to wait for level. Specimens batched twice per day, (M-F) and once per day weekendsMethod performed is a chemiluminescent microparticle immunoasssay on the [employer] i2000.The range is based on experience at [facility] and users should be aware that target concentrations vary widely depending on concomitant therapy, time post-transplant, and desired degree of immunosuppression. Performed By: #### T ACRO ####[facility] (DEFAULT)[address] [place] [address] CBC,PLATELETSon 09-06-2023 Hematocrit (Bld) [Volume fraction] 38.4 % Low 39.6-48.8 [facility] Comment on above: Performed By: #### H EMOGC ####[facility] (DEFAULT)[address] [place] [address] Hemoglobin (Bld) [Mass/Vol] 11.9 g/dL Low 13.4-16.8 [facility] Comment on above: Performed By: #### H EMOGC ####[facility] (DEFAULT)[address] [place] [place] [address] MCV (RBC) [Entitic vol] 85.9 fL Normal 79.0-94.5 [facility] Comment on above: Performed By: #### H EMOGC ####[facility] (DEFAULT)[address] [place] [address] Mean Cell Hgb 26.6 pg Normal 26.1-33.3 [facility] Comment on above: Performed By: #### H EMOGC ####[facility] (DEFAULT)[address] [place] [address] Mean Cell Hgb Conc 31.0 g/dL Low 31.9-36.5 [facility] Comment on above: Performed By: #### H EMOGC ####[facility] (DEFAULT)[address] [place] [address] Platelet mean volume (Bld) [Entitic vol] 9.7 fL Normal 8.7-12.3 [facility] Comment on above: Performed By: #### H EMOGC ####[facility] (DEFAULT)[address] [place] [address] Platelets (Bld) [#/Vol] 181 10*3/uL Normal 146-337 [facility] Comment on above: Performed By: #### H EMOGC ####[facility] (DEFAULT)[address] [place] [address] RBC (Bld) [#/Vol] 4.47 10*6/uL Normal 4.38-5.83 [facility] Comment on above: Performed By: #### H EMO ####[facility] (DEFAULT)[address] [place] [address] RBC Distribution 13.4 % Normal 10.9-14.3 [facility] Comment on above: Performed By: #### H EMOGC ####[facility] (DEFAULT)[address] [place] [address] WBC (Bld) [#/Vol] 4.41 10*3/uL Normal 3.73-10.10 [facility] Comment on above: Performed By: #### H EMOGC ####[facility] (DEFAULT)[address] [place] [address] Erythrocyte distribution width (RBC) [Ratio] 13.4 % 10.9 - 14.3 % [facility] Hematocrit (Bld) [Volume fraction] 38.4 % Low 39.6 - 48.8 % [facility] Hemoglobin (Bld) [Mass/Vol] 11.9 g/dL Low 13.4 - 16.8 g/dL [facility] Interpretation and review of laboratory results Abnormal [facility] MCH (RBC) [Entitic mass] 26.6 pg 26.1 - 33.3 pg [facility] MCHC (RBC) [Mass/Vol] 31.0 g/dL Low 31.9 - 36.5 g/dL [facility] MCV (RBC) [Entitic vol] 85.9 fL 79.0 - 94.5 fL [facility] Platelet mean volume (Bld) [Entitic vol] 9.7 fL 8.7 - 12.3 fL [facility] Platelets (Bld) [#/Vol] 181 10*3/uL 146 - 337 K/uL [facility] RBC (Bld) [#/Vol] 4.47 10*6/uL [facility] WBC (Bld) [#/Vol] 4.41 10*3/uL 3.73 - 10. 10 K/uL [facility] CHEM 7 (LYTES,BUN,CREA,GLUC) on 09-06-2023 Anion gap [Moles/Vol] 14 mmol/L 7 - 17 mmol/L [facility] Chloride [Moles/Vol] 109 mmol/L High 98 - 10 8 mmol/L [facility] CO2 [Moles/Vol] 19 mmol/L Low 21 - 31 mmol/L [facility] Creatinine [Mass/Vol] 1.26 mg/dL 0.70 - 1.30 mg/dL [facility] eGFR, CKD-EPI, Male 69 - PINF [facility] Glucose [Mass/Vol] 114 mg/dL High 70 - 99 mg/dL [facility] Osmolality Calc [Osmolality] 291 [facility] Potassium [Moles/Vol] 4.1 mmol/L 3.5 - 5.0 mmol/L [facility] Sodium [Moles/Vol] 138 mmol/L 135 - 145 mmol/L [facility] Urea nitrogen [Mass/Vol] 16 mg/dL 7 - 25 mg/dL [facility] Urea nitrogen/Creatinine [Mass ratio] 13 mg/mg [facility] Anion gap [Moles/Vol] 14 mmol/L Normal 7-17 [facility] Comment on above: Performed By: #### NATHANIEL RAMÍREZ, HFP ####[facility] (DEFAULT)[address] [place] [address] Chloride [Moles/Vol] 109 mmol/L High 98-108 [facility] Comment on above: Performed By: #### NATHANIEL RAMÍREZ, HFP ####[facility] (DEFAULT)[address] [place] [address] CO2 [Moles/Vol] 19 mmol/L Low 21-31 [facility] Comment on above: Performed By: #### NATHAINEL RAMÍREZ, HFP ####[facility] (DEFAULT)[address] [place] [address] Creatinine [Mass/Vol] 1.26 mg/dL Normal 0.70-1.30 [facility] Comment on above: Performed By: #### NATHANIEL RAMÍREZ, HFP ####[facility] (DEFAULT)[address] [place] [address] GFR/1.73 sq M.predicted among non-blacks MDRD (S/P/Bld) [Vol rate/Area] 69 mL/min/{1.73_m2} Normal >=60 [facility] Comment on above: Result Comment: Repo rted eGFR is based on the CKD-EPI 2020 equation using creatinine, age, and sex. Performed By: #### NATHANIEL RAMÍREZ, HFP ####[facility] (DEFAULT)[address] [place] [address] Glucose [Mass/Vol] 114 mg/dL High 70-99 [facility] Comment on above: Performed By: #### NATHANIEL RAMÍREZ, HFP ####[facility] (DEFAULT)[address] [place] [address] Osmolality [Osmolality] 291 mosm/kg Normal 278-305 [facility] Comment on above: Performed By: #### TJ RAMÍREZ7, HFP ####[facility] (DEFAULT)[address] [place] [address] Potassium [Moles/Vol] 4.1 mmol/L Normal 3.5-5.0 [facility] Comment on above: Performed By: #### NATHANIEL RAMÍREZ, HFP ####[facility] (DEFAULT)[address] [place] [address] Sodium [Moles/Vol] 138 mmol/L Normal 135-145 [facility] Comment on above: Performed By: #### NATHANIEL RAMÍREZ, HFP ####[facility] (DEFAULT)[address] [place] [address] Urea nitrogen [Mass/Vol] 16 mg/dL Normal 7-25 [facility] Comment on above: Performed By: #### NATHANIEL RAMÍREZ, HFP ####[facility] (DEFAULT)[address] [place] [address] Urea nitrogen/Creatinine [Mass ratio] 13 mg/mg Normal [facility] Comment on above: Performed By: #### NATHANIEL RAMÍREZ, HFP ####[facility] (DEFAULT)[address] [place] [address] HEPATIC FUNCTION PANELon Albumin [Mass/Vol] 3.0 g/dL Low 3.5 - 5.0 g/dL [facility] ALP [Catalytic activity/Vol] 115 U/L 32 - 126 U/L [facility] ALT [Catalytic activity/Vol] 25 U/L 10 - 52 U/L [facility] AST [Catalytic activity/Vol] 31 U/L 10 - 39 U/L [facility] Bilirubin [Mass/Vol] 1.0 mg/dL NINF - 1.5 mg/dL [facility] Bilirubin.direct [Mass/Vol] 0.3 mg/dL High NINF - 0.3 mg/dL [facility] Protein [Mass/Vol] 6.3 g/dL Low 6.4 - 8.3 g/dL [facility] Albumin [Mass/Vol] 3.0 g/dL Low 3.5-5.0 [facility] Comment on above: Performed By: #### M HELEN BLOOMM7, HFP ####[facility] (DEFAULT)[address] [place] [address] ALP [Catalytic activity/Vol] 115 U/L Normal 32-126 [facility] Comment on above: Performed By: #### Rod BLOOM CHM7, HFP ####[facility] (DEFAULT)[address] [place] [address] ALT [Catalytic activity/Vol] 25 U/L Normal 10-52 [facility] Comment on above: Performed By: #### Rod BLOOM CHM7, HFP ####[facility] (DEFAULT)[address] [place] [address] AST [Catalytic activity/Vol] 31 U/L Normal 10-39 [facility] Comment on above: Performed By: #### Rod BLOOM CHM7, HFP ####[facility] (DEFAULT)[address] [place] [address] Bilirubin [Mass/Vol] 1.0 mg/dL Normal <1.5 [facility] Comment on above: Performed By: #### Rod BLOOM CHM7, HFP ####[facility] (DEFAULT)[address] [place] [address] Bilirubin.indirect [Mass/Vol] 0.3 mg/dL High <0.3 [facility] Comment on above: Performed By: #### Rod BLOOM CHM7, HFP ####[facility] (DEFAULT)[address] [place] [address] Protein [Mass/Vol] 6.3 g/dL Low 6.4-8.3 [facility] Comment on above: Performed By: #### M HELEN BLOOMM7, HFP ####[facility] (DEFAULT)[address] [place] [address] MAGNESIUMon 09-06-2023 Interpretation and review of laboratory results Normal [facility] Magnesium [Mass/Vol] 2.0 mg/dL 1.6 - 2 .6 mg/dL [facility] Magnesium [Mass/Vol] 2.0 mg/dL Normal 1.6-2.6 [facility] Comment on above: Performed By: #### M HELEN BLOOMM7, HFP ####[facility] (DEFAULT)[address] [place] [address] No Panel Informationon 09-06 Interpretation and review of laboratory results Abnormal [facility] TACROLIMUS LEVEL, TROUGH (OR E DRUG LEVEL)on 09-06-2023 Interpretation and review of laboratory results Normal [facility] Tacrolimus (Bld) [Mass/Vol] 6.7 ng/mL [facility] Tacrolimus, Trough 6.7 ng/mL Normal Bone Susana ow Transplant: 4.0-12.0, Therapeutic: 5.0-15.0 [facility] Comment on above: Order Comment: Pleas e draw at specified interval PRIOR to dose. Do not hold dose to wait for level. Specimens batched twice per day, (M-) and once per day weekendsMethod performed is a chemiluminescent microparticle immunoasssay on the [employer] i2000.The range is based on experience at [facility] and users should be aware that target concentrations vary widely depending on concomitant therapy, time post-transplant, and desired degree of immunosuppression. Performed By: #### T ACRO ####[facility] (DEFAULT)[address] [place] [address] CBC,PLATELETSon 09-05-2023 Hematocrit (Bld) [Volume fraction] 35.6 % Low 39.6-48.8 [facility] Comment on above: Performed By: #### H EMO ####[facility] (DEFAULT)[address] [place] [address] Hemoglobin (Bld) [Mass/Vol] 11.4 g/dL Low 13.4-16.8 [facility] Comment on above: Performed By: #### H EMOGC ####[facility] (DEFAULT)[address] [place] [address] MCV (RBC) [Entitic vol] 86.0 fL Normal 79.0-94.5 [facility] Comment on above: Performed By: #### H EMOGC ####[facility] (DEFAULT)[address] [place] [address] Mean Cell Hgb 27.5 pg Normal 26.1-33.3 [facility] Comment on above: Performed By: #### H EMOGC ####[facility] (DEFAULT)[address] [place] [address] Mean Cell Hgb Conc 32.0 g/dL Normal 31.9-36.5 [facility] Comment on above: Performed By: #### H EMOGC ####[facility] (DEFAULT)[address] [place] [address] Platelet mean volume (Bld) [Entitic vol] 10.0 fL Normal 8.7-12.3 [facility] Comment on above: Performed By: #### H EMOGC ####[facility] (DEFAULT)[address] [place] [address] Platelets (Bld) [#/Vol] 170 10*3/uL Normal 146-337 [facility] Comment on above: Performed By: #### H EMOGC ####[facility] (DEFAULT)[address] [place] [address] RBC (Bld) [#/Vol] 4.14 10*6/uL Low 4.38-5.83 [facility] Comment on above: Performed By: #### H EMOGC ####[facility] (DEFAULT)[address] [place] [address] RBC Distribution 13.5 % Normal 10.9-14.3 [facility] Comment on above: Performed By: #### H [facility] ####[facility] (DEFAULT)[address] [place] [address] WBC (Bld) [#/Vol] 4.24 10*3/uL Normal 3.73-10.10 [facility] Comment on above: Performed By: #### H [facility] ####[facility] (DEFAULT)[address] [place] [address] Erythrocyte distribution width (RBC) [Ratio] 13.5 % 10.9 - 14.3 % [facility] Hematocrit (Bld) [Volume fraction] 35.6 % Low 39.6 - 48.8 % [facility] Hemoglobin (Bld) [Mass/Vol] 11.4 g/dL Low 13.4 - 16.8 g/dL [facility] Interpretation and review of laboratory results Abnormal [facility] MCH (RBC) [Entitic mass] 27.5 pg 26.1 - 33.3 pg [facility] MCHC (RBC) [Mass/Vol] 32.0 g/dL 31.9 - 36.5 g/dL [facility] MCV (RBC) [Entitic vol] 86.0 fL 79.0 - 94.5 fL [facility] Platelet mean volume (Bld) [Entitic vol] 10.0 fL 8.7 - 12.3 fL [facility] Platelets (Bld) [#/Vol] 170 10*3/uL 146 - 337 K/uL [facility] RBC (Bld) [#/Vol] 4.14 10*6/uL Low [facility] WBC (Bld) [#/Vol] 4.24 10*3/uL 3.73 - 10. 10 K/uL [facility] CHEM 7 (LYTES,BUN,CREA,GLUC) on 10-07-2023 Anion gap [Moles/Vol] 12 mmol/L Normal 7-17 [facility] Comment on above: Performed By: #### H ANTWAN CHM7, MGO ####[facility] (DEFAULT)[address] [place] [address] Chloride [Moles/Vol] 107 mmol/L Normal 98-108 [facility] Comment on above: Performed By: #### H ANTWAN, CHM7, MGO ####[facility] (DEFAULT)[address] [place] [address] CO2 [Moles/Vol] 20 mmol/L Low 21-31 [facility] Comment on above: Performed By: #### H ANTWAN CHM7, MGO ####[facility] (DEFAULT)[address] [place] [address] Creatinine [Mass/Vol] 1.43 mg/dL High 0.70-1.30 [facility] Comment on above: Performed By: #### H ANTWAN CHM7, MGO ####[facility] (DEFAULT)[address] [place] [address] GFR/1.73 sq M.predicted among non-blacks MDRD (S/P/Bld) [Vol rate/Area] 59 mL/min/{1.73_m2} Low >=60 [facility] Comment on above: Result Comment: Repo rted eGFR is based on the CKD-EPI 2020 equation using creatinine, age, and sex. Performed By: #### H ANTWAN, CHM7, MGO ####[facility] (DEFAULT)[address] [place] [address] Glucose [Mass/Vol] 111 mg/dL High 70-99 [facility] Comment on above: Performed By: #### H FP, CHM7, MGO ####[facility] (DEFAULT)[address] [place] [address] Osmolality [Osmolality] 286 mosm/kg Normal 278-305 [facility] Comment on above: Performed By: #### H ANTWAN, CHM7, MGO ####[facility] (DEFAULT)[address] [place] [address] Potassium [Moles/Vol] 4.2 mmol/L Normal 3.5-5.0 [facility] Comment on above: Performed By: #### H FP, CHM7, MGO ####[facility] (DEFAULT)[address] [place] [address] Sodium [Moles/Vol] 135 mmol/L Normal 135-145 [facility] Comment on above: Performed By: #### H ANTWAN, CHM7, MGO ####[facility] (DEFAULT)[address] [place] [address] Urea nitrogen [Mass/Vol] 18 mg/dL Normal 7-25 [facility] Comment on above: Performed By: #### H ANTWAN, CHM7, MGO ####[facility] (DEFAULT)[address] [place] [address] Urea nitrogen/Creatinine [Mass ratio] 13 mg/mg Normal [facility] Comment on above: Performed By: #### H ANTWAN, CHM7, MGO ####[facility] (DEFAULT)[address] [place] [address] Anion gap [Moles/Vol] 12 mmol/L 7 - 17 mmol/L [facility] Chloride [Moles/Vol] 107 mmol/L 98 - 10 8 mmol/L [facility] CO2 [Moles/Vol] 20 mmol/L Low 21 - 31 mmol/L [facility] Creatinine [Mass/Vol] 1.43 mg/dL High 0.70 - 1.30 mg/dL [facility] eGFR, CKD-EPI, Male 60 Low - PINF [facility] Glucose [Mass/Vol] 111 mg/dL High 70 - 99 mg/dL [facility] Osmolality Calc [Osmolality] 286 [facility] Potassium [Moles/Vol] 4.2 mmol/L 3.5 - 5.0 mmol/L [facility] Sodium [Moles/Vol] 135 mmol/L 135 - 145 mmol/L [facility] Urea nitrogen [Mass/Vol] 18 mg/dL 7 - 25 mg/dL [facility] Urea nitrogen/Creatinine [Mass ratio] 13 mg/mg [facility] CONTINUOUS CARDIAC MONITORIN G STRIPon 09-05-2023 [facility] HEPATIC FUNCTION PANELon Albumin [Mass/Vol] 2.8 g/dL Low 3.5-5.0 [facility] Comment on above: Performed By: #### Lydia MONCADA CHM7, MGO ####[facility] (DEFAULT)[address] [place] [address] ALP [Catalytic activity/Vol] 103 U/L Normal 32-126 [facility] Comment on above: Performed By: #### Lydia MONCADA, CHM7, MGO ####[facility] (DEFAULT)[address] [place] [address] ALT [Catalytic activity/Vol] 26 U/L Normal 10-52 [facility] Comment on above: Performed By: #### Lydia MONCADA, CHM7, MGO ####[facility] (DEFAULT)[address] [place] [address] AST [Catalytic activity/Vol] 38 U/L Normal 10-39 [facility] Comment on above: Performed By: #### Lydia MONCADA, CHM7, MGO ####[facility] (DEFAULT)[address] [place] [address] Bilirubin [Mass/Vol] 0.9 mg/dL Normal <1.5 [facility] Comment on above: Performed By: #### Lydia FP, CHM7, MGO ####[facility] (DEFAULT)[address] [place] [address] Bilirubin.indirect [Mass/Vol] 0.1 mg/dL Normal <0.3 [facility] Comment on above: Performed By: #### H ANTWAN, HELENM7, MGO ####[facility] (DEFAULT)[address] [place] [address] Protein [Mass/Vol] 6.1 g/dL Low 6.4-8.3 [facility] Comment on above: Performed By: #### H ANTWAN, HELENM7, MGO ####[facility] (DEFAULT)[address] [place] [address] Albumin [Mass/Vol] 2.8 g/dL Low 3.5 - 5.0 g/dL [facility] ALP [Catalytic activity/Vol] 103 U/L 32 - 126 U/L [facility] ALT [Catalytic activity/Vol] 26 U/L 10 - 52 U/L [facility] AST [Catalytic activity/Vol] 38 U/L 10 - 39 U/L [facility] Bilirubin [Mass/Vol] 0.9 mg/dL NINF - 1.5 mg/dL [facility] Bilirubin.direct [Mass/Vol] 0.1 mg/dL NINF - 0.3 mg/dL [facility] Protein [Mass/Vol] 6.1 g/dL Low 6.4 - 8.3 g/dL [facility] HISTOPLASMA ANTIGEN, FLUIDon 09-05-2023 FH SOURCE BAL RML [facility] Histo FLD interpretation Negative [facility] Histoplasma Antigen, FLUID Not detected ng/mL [facility] HISTOPLASMA CAPSULATUM/BLAST OMYCES SPECIES,PCR FLUIDon 09-05-2023 HISTO/BLASTO RESULT Negative Not Applicable [facility] Specimen source Nom (Unsp spec) BAL RML [facility] IMMUNOPHENOTYPING, TISSUE/FL UIDon 09-05-2023 BKR DX CODE Use Ordering [facility] Flow Interpretation See Comment [facility] Flow Interpreted by: Yossi Perla MD, PhD [facility] MAGNESIUMon 09-05-2023 Magnesium [Mass/Vol] 1.7 mg/dL Normal 1.6-2.6 [facility] Comment on above: Performed By: #### H FP, CHM7, MGO ####[facility] (DEFAULT)[address] [place] [address] Interpretation and review of laboratory results Normal [facility] Magnesium [Mass/Vol] 1.7 mg/dL 1.6 - 2 .6 mg/dL [facility] No Panel Informationon 09-05 Interpretation and review of laboratory results Abnormal [facility] TACROLIMUS LEVEL, TROUGH (OR E DRUG LEVEL)Ordered By: Raymundo Mehta on 09-05-2023 Interpretation and review of laboratory results Normal [facility] Tacrolimus (Bld) [Mass/Vol] 5.3 ng/mL [facility] TACROLIMUS LEVEL, TROUGH (OR E DRUG LEVEL)on 09-05-2023 Tacrolimus, Trough 5.3 ng/mL Normal Bone Susana ow Transplant: 4.0-12.0, Therapeutic: 5.0-15.0 [facility] Comment on above: Order Comment: Pleas e draw at specified interval PRIOR to dose. Do not hold dose to wait for level. Specimens batched twice per day, (M-F) and once per day weekendsMethod performed is a chemiluminescent microparticle immunoasssay on the [employer] i2000.The range is based on experience at [facility] and users should be aware that target concentrations vary widely depending on concomitant therapy, time post-transplant, and desired degree of immunosuppression. Performed By: #### T ACRO ####[facility] (DEFAULT)[address] [place] [address] ARTERIAL BLOOD GAS (FULL GOSS EL)on 09-04-2023 Base Excess -1.2 mmol/L Normal -3.0-3.0 [facility] Comment on above: Performed By: #### G ASALL ####[facility] (DEFAULT)[address] [place] [address] Carboxyhemoglobin 0.7 % Normal <=1.5 [place] Comment on above: Performed By: #### G ASALL ####[facility] (DEFAULT)[address] [place] [address] Glucose [Mass/Vol] 159 mg/dL High 70-99 [facility] Comment on above: Performed By: #### G ASALL ####[facility] (DEFAULT)[address] [place] [address] HCO3 (Bld) [Moles/Vol] 22 mmol/L Normal 22-28 [facility] Comment on above: Performed By: #### G ASAASHISH ####[facility] (DEFAULT)[address] [place] [address] Hematocrit (Bld) [Volume fraction] 38.0 % Low 40.2-50.4 [facility] Comment on above: Performed By: #### G ASALL ####[facility] (DEFAULT)[address] [place] [address] Hemoglobin (Bld) [Mass/Vol] 12.6 g/dL Low 13.4-16.8 [facility] Comment on above: Performed By: #### G ASAASHISH ####[facility] (DEFAULT)[address] [place] [address] Ionized Calcium, Whole Blood 4.79 mg/dL Normal 4.60-5.30 [facility] Comment on above: Performed By: #### G ASAASHISH ####[facility] (DEFAULT)[address] [place] [address] Lactate, Whole Blood 2.0 mmol/L High 0.5-1.6 [facility] Comment on above: Performed By: #### G ASAASHISH ####[facility] (DEFAULT)[address] [place] [address] Methemoglobin 0.0 % Normal <=1.5 [facility] Comment on above: Performed By: #### Vale UNDERWOOD ####[facility] (DEFAULT)[address] [place] [address] Oxyhemoglobin 91 % Low 94-98 [facility] Comment on above: Performed By: #### Vale UNDERWOOD ####[facility] (DEFAULT)[address] [place], [place] [address], [place] [address] pCO2 30 mm Hg Low 32-48 [facility] Comment on above: Performed By: #### Vael UNDERWOOD ####[facility] (DEFAULT)[address] [place] [address] pH (Bld) 7.48 [pH] High 7.35-7.45 [facility] Comment on above: Performed By: #### Vale UNDERWOOD ####[facility] (DEFAULT)[address] [place] [address], [place] [address] pO2 62 mm Hg Low 83-108 [facility] Comment on above: Performed By: #### Vale UNDERWOOD ####[facility] (DEFAULT)[address] [place] [address], [place] [address] Potassium [Moles/Vol] 4.2 mmol/L Normal 3.5-5.0 [facility] Comment on above: Performed By: #### Vale UNDERWOOD ####[facility] (DEFAULT)[address] [place], [place] [address], [place] [address] sO2 92 % Low 94-98 [facility] Comment on above: Performed By: #### Vale UNDERWOOD ####[facility] (DEFAULT)[address] [place], [place] [address], [place] [address] Sodium [Moles/Vol] 130 mmol/L Low 135-145 [facility] Comment on above: Performed By: #### Vale UNDERWOOD ####[facility] (DEFAULT)[address] [place] [address], [place] [address] Specimen type Nom (Spec) Arterial Normal [facility] Comment on above: Performed By: #### G ASALL ####[facility] (DEFAULT)[address] [place] [id number] Base excess Calc (Bld) [Moles/Vol] -1.2000 mmol/L -3.0 - 3.0 mmol/L [facility] Calcium.ionized (Bld) [Mass/Vol] 4.79 mg/dL 4.60 - 5.30 mg/dL [facility] Carboxyhemoglobin (Bld) [Mass fraction] 0.7 % NINF - 1.5 % [facility] CO2 (Bld) [Partial pressure] 30 mm[Hg] Low [facility] Glucose [Mass/Vol] 159 mg/dL High 70 - 99 mg/dL [facility] HCO3 (Bld) [Moles/Vol] 22 mmol/L 22 - 28 mmol/L [facility] Hematocrit (Bld) [Volume fraction] 38.0 % Low 40.2 - 50.4 % [facility] Hemoglobin (Bld) [Mass/Vol] 12.6 g/dL Low 13.4 - 16.8 g/dL [facility] Interpretation and review of laboratory results Abnormal [facility] Lactate [Moles/Vol] 2.0 mmol/L High 0.5 - 1. 6 mmol/L [facility] Methemoglobin (Bld) [Mass fraction] 0.0 % NINF - 1.5 % [facility] Oxygen (Bld) [Partial pressure] 62 mm[Hg] Low [facility] Oxygen saturation in Blood 92 % Low 94 - 98 % [facility] Oxyhemoglobin 91 % Low 94 - 98 % [facility] pH (Bld) 7.48 [pH] High 7.35 - 7.45 [facility] Potassium [Moles/Vol] 4.2 mmol/L 3.5 - 5.0 mmol/L [facility] Sodium [Moles/Vol] 130 mmol/L Low 135 - 145 mmol/L [facility] Specimen source Nom (Unsp spec) [facility]terial [facility] Bacteria identified Respirat ory culture Nom (Unsp spec)on 09-04-2023 Bacteria identified Cx Nom (Unsp spec) NO GROWTH DAY 2 OF 2 [facility] Microscopic observation Other stain Nom (Unsp spec) [facility]uge [facility]scopic [facility] Other stain Nom (Unsp spec) Neutrophils, Rare [facility] Microscopic observation Other stain Nom (Unsp spec) Red Blood Cells [facility] Other stain Nom (Unsp spec) No organisms seen [facility] Bacteria identified Respirat ory culture Nom (Unsp spec)Ordered By: Jose Salgado on 09-04-2023 Bacteria identified Cx Nom (Unsp spec) NO GROWTH DAY 2 OF 2 [facility] Microscopic observation Other stain Nom (Unsp spec) [facility]ocentrifuge [facility] Microscopic observation Other stain Nom (Unsp spec) Neutrophils, Moderate [facility] Microscopic observation Other stain Nom (Unsp spec) Red Blood Cells Present [facility] Microscopic observation Other stain Nom (Unsp spec) No organisms seen [facility] CBC,PLATELETSon 09-04-2023 Hematocrit (Bld) [Volume fraction] 38.7 % Low 39.6-48.8 [facility] Comment on above: Performed By: #### [facility] ####[facility] (DEFAULT)[address] [place] [address] Hemoglobin (Bld) [Mass/Vol] 12.3 g/dL Low 13.4-16.8 [facility] Comment on above: Performed By: #### [facility] ####[facility] (DEFAULT)[address] [place] [address] MCV (RBC) [Entitic vol] 87.8 fL Normal 79.0-94.5 [facility] Comment on above: Performed By: #### H [facility] ####[facility] (DEFAULT)[address] [place] [address] Mean Cell Hgb 27.9 pg Normal 26.1-33.3 [facility] Comment on above: Performed By: #### H EMOGC ####[facility] (DEFAULT)[address] [place] [address] Mean Cell Hgb Conc 31.8 g/dL Low 31.9-36.5 [facility] Comment on above: Performed By: #### H EMOGC ####[facility] (DEFAULT)[address] [place] [address] Platelet mean volume (Bld) [Entitic vol] 9.8 fL Normal 8.7-12.3 [facility] Comment on above: Performed By: #### H EMOGC ####[facility] (DEFAULT)[address] [place] [address] Platelets (Bld) [#/Vol] 173 10*3/uL Normal 146-337 [facility] Comment on above: Performed By: #### H EMOGC ####[facility] (DEFAULT)[address] [place] [address] RBC (Bld) [#/Vol] 4.41 10*6/uL Normal 4.38-5.83 [facility] Comment on above: Performed By: #### H EMOGC ####[facility] (DEFAULT)[address] [place] [address] RBC Distribution 13.2 % Normal 10.9-14.3 [facility] Comment on above: Performed By: #### H EMOGC ####[facility] (DEFAULT)[address] [place] [address] WBC (Bld) [#/Vol] 4.57 10*3/uL Normal 3.73-10.10 [facility] Comment on above: Performed By: #### H EMOGC ####[facility] (DEFAULT)[address] [place] [address] Erythrocyte distribution width (RBC) [Ratio] 13.2 % 10.9 - 14.3 % [facility] Hematocrit (Bld) [Volume fraction] 38.7 % Low 39.6 - 48.8 % [facility] Hemoglobin (Bld) [Mass/Vol] 12.3 g/dL Low 13.4 - 16.8 g/dL [facility] Interpretation and review of laboratory results Abnormal [facility] MCH (RBC) [Entitic mass] 27.9 pg 26.1 - 33.3 pg [facility] MCHC (RBC) [Mass/Vol] 31.8 g/dL Low 31.9 - 36.5 g/dL [facility] MCV (RBC) [Entitic vol] 87.8 fL 79.0 - 94.5 fL [facility] Platelet mean volume (Bld) [Entitic vol] 9.8 fL 8.7 - 12.3 fL [facility] Platelets (Bld) [#/Vol] 173 10*3/uL 146 - 337 K/uL [facility] RBC (Bld) [#/Vol] 4.41 10*6/uL [facility] WBC (Bld) [#/Vol] 4.57 10*3/uL 3.73 - 10. 10 K/uL [facility] CHEM 7 (LYTES,BUN,CREA,GLUC) on 09-04-2023 Anion gap [Moles/Vol] 16 mmol/L Normal 7-17 [facility] Comment on above: Performed By: #### M TJ BLOOM7, HFP ####[facility] (DEFAULT)[address] [place] [address] Chloride [Moles/Vol] 104 mmol/L Normal 98-108 [facility] Comment on above: Performed By: #### Rod BLOOM CHM7, HFP ####[facility] (DEFAULT)[address] [place] [address] CO2 [Moles/Vol] 18 mmol/L Low 21-31 [facility] Comment on above: Performed By: #### NATHANIEL RAMÍREZ, HFP ####[facility] (DEFAULT)[address] [place] [address] Creatinine [Mass/Vol] 1.22 mg/dL Normal 0.70-1.30 [facility] Comment on above: Performed By: #### NATHANIEL RAMÍREZ, HFP ####[facility] (DEFAULT)[address] [place] [address] GFR/1.73 sq M.predicted among non-blacks MDRD (S/P/Bld) [Vol rate/Area] 71 mL/min/{1.73_m2} Normal >=60 [facility] Comment on above: Result Comment: Repo rted eGFR is based on the CKD-EPI 2020 equation using creatinine, age, and sex. Performed By: #### NATHANIEL RAMÍREZ, HFP ####[facility] (DEFAULT)[address] [place] [address] Glucose [Mass/Vol] 124 mg/dL High 70-99 [facility] Comment on above: Performed By: #### NATHANIEL RAMÍREZ, HFP ####[facility] (DEFAULT)[address] [place] [address] Osmolality [Osmolality] 284 mosm/kg Normal 278-305 [facility] Comment on above: Performed By: #### NATHANIEL RAMÍREZ, HFP ####[facility] (DEFAULT)[address] [place] [address] Potassium [Moles/Vol] 3.9 mmol/L Normal 3.5-5.0 [facility] Comment on above: Performed By: #### NATHANIEL RAMÍREZ, HFP ####[facility] (DEFAULT)[address] [place] [address] Sodium [Moles/Vol] 134 mmol/L Low 135-145 [facility] Comment on above: Performed By: #### M HELEN BLOOMM7, HFP ####[facility] (DEFAULT)[address] [facility] [place] [address] Urea nitrogen [Mass/Vol] 15 mg/dL Normal 7-25 [facility] Comment on above: Performed By: #### M HLEEN BLOOMM7, HFP ####[facility] (DEFAULT)[address] [facility] [place] [address] Urea nitrogen/Creatinine [Mass ratio] 12 mg/mg Normal [facility] Comment on above: Performed By: #### M TJ BLOOM7, HFP ####[facility] (DEFAULT)[address] [facility] [place] [address] Anion gap [Moles/Vol] 16 mmol/L 7 - 17 mmol/L [facility] Chloride [Moles/Vol] 104 mmol/L 98 - 10 8 mmol/L [facility] CO2 [Moles/Vol] 18 mmol/L Low 21 - 31 mmol/L [facility] Creatinine [Mass/Vol] 1.22 mg/dL 0.70 - 1.30 mg/dL [facility] eGFR, CKD-EPI, Male 71 - PINF [facility] Glucose [Mass/Vol] 124 mg/dL High 70 - 99 mg/dL [facility] Osmolality Calc [Osmolality] 284 [facility] Potassium [Moles/Vol] 3.9 mmol/L 3.5 - 5.0 mmol/L [facility] Sodium [Moles/Vol] 134 mmol/L Low 135 - 145 mmol/L [facility] Urea nitrogen [Mass/Vol] 15 mg/dL 7 - 25 mg/dL [facility] Urea nitrogen/Creatinine [Mass ratio] 12 mg/mg [facility] CMV PCR,FLUIDS,URINE,EYE ETC on 09-04-2023 Specimen source Nom (Unsp spec) BAL LLL [facility] Specimen source Nom (Unsp spec) BAL RML [facility] HEPATIC FUNCTION PANELon Albumin [Mass/Vol] 3.0 g/dL Low 3.5-5.0 [facility] Comment on above: Performed By: #### M MERLE CHM7, HFP ####[facility] (DEFAULT)[address] [place] [address] ALP [Catalytic activity/Vol] 112 U/L Normal 32-126 [facility] Comment on above: Performed By: #### M MERLE CHM7, HFP ####[facility] (DEFAULT)[address] [place] [address] ALT [Catalytic activity/Vol] 22 U/L Normal 10-52 [facility] Comment on above: Performed By: #### M MERLE CHM7, HFP ####[facility] (DEFAULT)[address] [place] [address] AST [Catalytic activity/Vol] 30 U/L Normal 10-39 [facility] Comment on above: Performed By: #### M GO CHM7, HFP ####[facility] (DEFAULT)[address] [place] [address] Bilirubin [Mass/Vol] 1.2 mg/dL Normal <1.5 [facility] Comment on above: Performed By: #### M GO CHM7, HFP ####[facility] (DEFAULT)[address] [place] [address] Bilirubin.indirect [Mass/Vol] 0.4 mg/dL High <0.3 [facility] Comment on above: Performed By: #### M GO CHM7, HFP ####[facility] (DEFAULT)[address] [place] [address] Protein [Mass/Vol] 6.4 g/dL Normal 6.4-8.3 [facility] Comment on above: Performed By: #### M GO, CHM7, HFP ####[facility] (DEFAULT)[address] [place] [address] Albumin [Mass/Vol] 3.0 g/dL Low 3.5 - 5.0 g/dL [facility] ALP [Catalytic activity/Vol] 112 U/L 32 - 126 U/L [facility] ALT [Catalytic activity/Vol] 22 U/L 10 - 52 U/L [facility] AST [Catalytic activity/Vol] 30 U/L 10 - 39 U/L [facility] Bilirubin [Mass/Vol] 1.2 mg/dL NINF - 1.5 mg/dL [facility] Bilirubin.direct [Mass/Vol] 0.4 mg/dL High NINF - 0.3 mg/dL [facility] Protein [Mass/Vol] 6.4 g/dL 6.4 - 8.3 g/dL [facility] LEGIONELLA PCRon 09-04-2023 Legionella sp rRNA Probe Ql (Unsp spec) Negative Not Applicable [facility] Specimen source Nom (Unsp spec) BAL RML [facility] Laboratory - Microbiology an d Antimicrobial susceptibilityon 09-04-2023 CMV DNA ESTELITA+probe Ql (Unsp spec) Negative Negative [facility] MAGNESIUMon 09-04-2023 Magnesium [Mass/Vol] 1.4 mg/dL Low 1.6-2.6 [facility] Comment on above: Performed By: #### M , M7, HFP ####[facility] (DEFAULT)[address] [place] [address] Magnesium [Mass/Vol] 1.4 mg/dL Low 1.6 - 2 .6 mg/dL [facility] No Panel Informationon 09-04 Annotation comment [Interpretation] Narrative DNR [facility] PN Report Status DNR [facility] Pneumocystis jiroveci,PCR result Negative Not Applicable [facility] Interpretation and review of laboratory results Abnormal [facility] PNEUMOCYSTIS JIROVECI,PCRon 09-04-2023 Specimen source Nom (Unsp spec) BAL LLL [facility] Specimen source Nom (Unsp spec) BAL RML [facility] Portable XR Chest Viewson RADIOLOGY RADIOLOGY [facility] Radiology Study observation (narrative) [facility] Portable XR Chest ViewsOrder ed By: Joanie Nugent on 09-04-2023 [facility] Work Phone: TACROLIMUS LEVEL, TROUGH (OR E DRUG LEVEL)on 09-04-2023 Interpretation and review of laboratory results Abnormal [facility] Tacrolimus (Bld) [Mass/Vol] 3.6 ng/mL Low [facility] Tacrolimus, Trough 3.6 ng/mL Low Bone Susana ow Transplant: 4.0-12.0, Therapeutic: 5.0-15.0 [facility] Comment on above: Order Comment: Pleas e draw at specified interval PRIOR to dose. Do not hold dose to wait for level. Specimens batched twice per day, (M-F) and once per day weekendsMethod performed is a chemiluminescent microparticle immunoasssay on the [employer] i2000.The range is based on experience at [facility] and users should be aware that target concentrations vary widely depending on concomitant therapy, time post-transplant, and desired degree of immunosuppression. Performed By: #### T ACRO ####[facility] (DEFAULT)[address] [place], [place] [id number] XR CHEST PORTABLEon 09-04-20 XR CHEST PORTABLE Normal [place] ASPERGILLUS ANTIGEN, BALon 1 Galactomannan Ag IA Qn (Unsp spec) <0.500 NINF [facility] Galactomannan Ag IA Qn (Unsp spec) <0.500 NINF [facility] BAL CONSULTOrdered By: Noa Peralta on 09-03-2023 ALVEOLAR MACROPHAGES 32 % [facility] Work Phone: Bal comments Correlation with microbiology stains and cultures is recommended. [facility] Work Phone: Bal Diff Quik Stain Quality Check Acceptable [facility] Work Phone: BKR BAL INTERPRETATION Cellular specimen comprised of alveolar macrophages and small lymphocytes. No definitive microorganisms are observed. Moderate degenerative changes. [facility] Work Phone: BKR DX CODE Use Ordering [facility] Work Phone: Eosinophils Patterson stain Ql (Unsp spec) 0 % [facility] Work Phone: Lymphocytes/100 WBC (Bld) 57 % [facility] Work Phone: Neutrophils/100 WBC Manual cnt (Bronch spec) 11 % [facility] Work Phone: Pathologist review Jame (Unsp spec) [Interp] Leonardo Peralta MD [facility] Work Phone: [facility] Work Phone: BAL CONSULTon 09-03-2023 ALVEOLAR MACROPHAGES 33 % [facility] Bal comments Correlation with microbiology stains and cultures is recommended. Correlation with viral studies is recommended. [facility] Bal Diff Quik Stain Quality Check Acceptable [facility] BKR BAL INTERPRETATION Cellular specimen comprised of alveolar macrophages and small lymphocytes. No definitive microorganisms are observed. Rare degenerating cells with changes suggestive of viral cytopathic effect are noted. Moderate degenerative changes. [facility] BKR DX CODE Use Ordering [facility] Eosinophils Patterson stain Ql (Unsp spec) 0 % [facility] Lymphocytes/100 WBC (Bld) 49 % [facility] Neutrophils/100 WBC Manual cnt (Bronch spec) 18 % [facility] Pathologist review Jame (Unsp spec) [Interp] Leonardo Peralta MD [facility] BRONCHOSCOPYon 09-03-2023 LAB, [facility] CBC,PLATELETSon 09-03-2023 Hematocrit (Bld) [Volume fraction] 39.6 % Normal 39.6-48.8 [facility] Comment on above: Performed By: #### H EMOGC ####[facility] (DEFAULT)[address] [place] [address] Hemoglobin (Bld) [Mass/Vol] 12.8 g/dL Low 13.4-16.8 [facility] Comment on above: Performed By: #### H EMOGC ####[facility] (DEFAULT)[address] [place] [address] MCV (RBC) [Entitic vol] 85.9 fL Normal 79.0-94.5 [facility] Comment on above: Performed By: #### H EMOGC ####[facility] (DEFAULT)[address] [place] [address] Mean Cell Hgb 27.8 pg Normal 26.1-33.3 [facility] Comment on above: Performed By: #### H EMOGC ####[facility] (DEFAULT)[address] [place] [address] Mean Cell Hgb Conc 32.3 g/dL Normal 31.9-36.5 [facility] Comment on above: Performed By: #### H EMOGC ####[facility] (DEFAULT)[address] [place] [address] Platelet mean volume (Bld) [Entitic vol] 9.4 fL Normal 8.7-12.3 [facility] Comment on above: Performed By: #### H EMOGC ####[facility] (DEFAULT)[address] [place] [address] Platelets (Bld) [#/Vol] 222 10*3/uL Normal 146-337 [facility] Comment on above: Performed By: #### H EMOGC ####[facility] (DEFAULT)[address] [place] [address] RBC (Bld) [#/Vol] 4.61 10*6/uL Normal 4.38-5.83 [facility] Comment on above: Performed By: #### [facility] ####[facility] (DEFAULT)[address] [place] [address] RBC Distribution 13.4 % Normal 10.9-14.3 [facility] Comment on above: Performed By: #### [facility] ####[facility] (DEFAULT)[address] [place] [address] WBC (Bld) [#/Vol] 4.36 10*3/uL Normal 3.73-10.10 [facility] Comment on above: Performed By: #### [facility] ####[facility] (DEFAULT)[address] [place] [address] Erythrocyte distribution width (RBC) [Ratio] 13.4 % 10.9 - 14.3 % [facility] Hematocrit (Bld) [Volume fraction] 39.6 % 39.6 - 48.8 % [facility] Hemoglobin (Bld) [Mass/Vol] 12.8 g/dL Low 13.4 - 16.8 g/dL [facility] Interpretation and review of laboratory results Abnormal [facility] MCH (RBC) [Entitic mass] 27.8 pg 26.1 - 33.3 pg [facility] MCHC (RBC) [Mass/Vol] 32.3 g/dL 31.9 - 36.5 g/dL [facility] MCV (RBC) [Entitic vol] 85.9 fL 79.0 - 94.5 fL [facility] Platelet mean volume (Bld) [Entitic vol] 9.4 fL 8.7 - 12.3 fL [facility] Platelets (Bld) [#/Vol] 222 10*3/uL 146 - 337 K/uL [facility] RBC (Bld) [#/Vol] 4.61 10*6/uL [facility] WBC (Bld) [#/Vol] 4.36 10*3/uL 3.73 - 10. 10 K/uL [facility] CHEM 7 (LYTES,BUN,CREA,GLUC) on 09-03-2023 Anion gap [Moles/Vol] 12 mmol/L Normal 7-17 [facility] Comment on above: Performed By: #### NATHANIEL RAMÍREZ, HFP ####[facility] (DEFAULT)[address] [place] [address] Chloride [Moles/Vol] 104 mmol/L Normal 98-108 [facility] Comment on above: Performed By: #### NATHANIEL RAMÍREZ, HFP ####[facility] (DEFAULT)[address] [place] [address] CO2 [Moles/Vol] 24 mmol/L Normal 21-31 [facility] Comment on above: Performed By: #### NATHANIEL RAMÍREZ, HFP ####[facility] (DEFAULT)[address] [place] [address] Creatinine [Mass/Vol] 1.20 mg/dL Normal 0.70-1.30 [facility] Comment on above: Performed By: #### NATHANIEL RAMÍREZ, HFP ####[facility] (DEFAULT)[address] [place] [address] GFR/1.73 sq M.predicted among non-blacks MDRD (S/P/Bld) [Vol rate/Area] 73 mL/min/{1.73_m2} Normal >=60 [facility] Comment on above: Result Comment: Repo rted eGFR is based on the CKD-EPI 2020 equation using creatinine, age, and sex. Performed By: #### NATHANIEL RAMÍREZ, HFP ####[facility] (DEFAULT)[address] [place] [address] Glucose [Mass/Vol] 112 mg/dL High 70-99 [facility] Comment on above: Performed By: #### NATHANIEL RAMÍREZ, HFP ####[facility] (DEFAULT)[address] [place] [address] Osmolality [Osmolality] 288 mosm/kg Normal 278-305 [facility] Comment on above: Performed By: #### NATHANIEL RAMÍREZ, HFP ####[facility] (DEFAULT)[address] [place] [address] Potassium [Moles/Vol] 4.1 mmol/L Normal 3.5-5.0 [facility] Comment on above: Performed By: #### NATHANIEL RAMÍREZ, HFP ####[facility] (DEFAULT)[address] [place] [address] Sodium [Moles/Vol] 136 mmol/L Normal 135-145 [facility] Comment on above: Performed By: #### NATHANIEL RAMÍREZ, HFP ####[facility] (DEFAULT)[address] [place] [address] Urea nitrogen [Mass/Vol] 17 mg/dL Normal 7-25 [facility] Comment on above: Performed By: #### NATHANIEL RAMÍREZ, HFP ####[facility] (DEFAULT)[address] [place] [address] Urea nitrogen/Creatinine [Mass ratio] 14 mg/mg Normal [facility] Comment on above: Performed By: #### NATHANIEL RAMÍREZ, HFP ####[facility] (DEFAULT)[address] [place] [address] Anion gap [Moles/Vol] 12 mmol/L 7 - 17 mmol/L [facility] Chloride [Moles/Vol] 104 mmol/L 98 - 10 8 mmol/L [facility] CO2 [Moles/Vol] 24 mmol/L 21 - 31 mmol/L [facility] Creatinine [Mass/Vol] 1.20 mg/dL 0.70 - 1.30 mg/dL [facility] eGFR, CKD-EPI, Male 73 - [facility] Glucose [Mass/Vol] 112 mg/dL High 70 - 99 mg/dL [facility] Osmolality Calc [Osmolality] 288 [facility] Potassium [Moles/Vol] 4.1 mmol/L 3.5 - 5.0 mmol/L [facility] Sodium [Moles/Vol] 136 mmol/L 135 - 145 mmol/L [facility] Urea nitrogen [Mass/Vol] 17 mg/dL 7 - 25 mg/dL [facility] Urea nitrogen/Creatinine [Mass ratio] 14 mg/mg [facility] CYTOLOGY, NON-GYNOrdered By: Sherice Jimenez on 09-03-2023 CYTOLOGIC DIAGNOSIS r6akgYQtEDQmfBJeROGzR1omjeY fPAIlvMEuE2DjvitcOMcnQU6sIW 6dtQxamWRpgKXvEZDyBeHcw8yqm 522yYJly7gkUNXJvyjmmIg3w5mz NTOBsF4qh8p5dX41AZDdwG2iqRV eXKkyzlSoSMjemgKbbiJgRkc7VO U2jHmeWpxvbHJ1hAXnuPU1XHaqq 7XwmYljbClxCOT5OCLhTsixOVzl uTD6iTKipUnqbNBrBG9iz1jrsQV 5xlHiFUD2bUwsjSY8nEbfmdxwb0 jxmBW5tPR5PQgzsXQ7JFtyWlWhM 6mgOOTpbC5uC75sH1tzASFugMpn ZFriSBXemVM5BFK0QEGso0fbEOT aaIGarXUzWpYgPEsnWww7h2syBA KcbV21wRSeaxT0aHbdIFonkJG0T L40EHrqk3PsKDYjmRdqNTSwgX7h YzIzXGxldmVsbmZjbjIzXGxldmV qttNiZTycywZjc0NrbvZffPS9XK izcpThmKB3hJjkFXRfD9O6H472D YjickIxxtDlYyPgxie2IRBoiQys bGlzdGxldmVsXGxldmVsbmZjMjN lbUU0TYnaDvQbNjNwkDA3THiaFw LimNN3TXrbtYOqhQN9BPkzfZQ7N Vy1MJl8XGniZUarVbt3lAscwCE5 ZJqzcY7eRWQzS87vZaT3z8vhvUH 4xSW1LTgwsPD1IPjnAlScQ5mwBR FjpE4pQ25nT3jmCGNbxCsaPIapF GRnuNE2SUF0QBQqu0lcFIOhgPVh tVQnSsTrLOeuXhn2j3viXVTgaM9 1oUQgfgF5xUloWY64YRzlx9QzZJ EuvUghATDmaP9iOoKnDQcjywTlt mZjbjIzXGxldmVsamMwXGxldmVs h5XkksZmcTE7MXreizRntST9sPz pGPQaS7K3D401SZkxfcHiiyErKy Zjcbp9IQSsuTahpHlemHicncDmU SbxldSeawXxXvFeuDW7TGgsJzWt YgBpgCM6CVwsKeSigKW5LXnycUN mqPB1ENkrzNI1ERq8SSl2VHaxFX keMsj6mSvphKO2IYwrwP8gPMOfI 03kChR7g9kehDB5yNV3VPaxbSH1 MIyqGkLrM6qlPNOixE3bQ09hX4o yZVUluLtuAMdoSQZxwPU4EBF2DD Ybe9psFIXbaCUzwZItDgIcMMpeX tp9e4tlGFPbxS32kTQspjQ0uCtd TL68CPcjn1SbXKLmnFosLQQceC3 mYzIzXGxldmVsbmZjbjIzXGxldm WiwpFoBIypdpJmr7HrmySpiXI2W GtzsvXbjIQ7wUskUTSjN1J4Z233 DGfnocRfdhXkNcMvxdo4YXRlcRm cbGlzdGxldmVsXGxldmVsbmZjMj RomWQ6PWpoAhAjQrUpfBK1DXvhL eIlmZP0DKeshIItqAM9KFnfdCH7 CEa9EOo5DQjvPVqiDeb2xTgsuQN 2QRtqyT2oBBIkN65lQcV6nL94WE qrmUvpvQ47LQSqtUXbuTZlhNP5Y LkprFviuE24OHPgkHApWSqte3Vq BICaWlI2WCA8LTJscUyqxQ40TYM gyQEzU690bwZwTFrrXH15JFRquH GypoDuFdNcHWTreEXotLH7GQSoZ J3ddxmiBMffAXioVKAuzcA8XSVg tRSjO1JgBDGeOQ1blrnkGII9FRg hQJStEEK9KgYhKZFgw2Yjpub6Yj EmpCz1n7tsEDRbJYWdySjdv5lgH AM1YAHsgCYaV8ygyU6dPDCuFX5f lsjur8egYSxhDEqjMUDhrNG8guF 3HGOqwWPjB5SmdJ4cFEOiEJNehz FhsTxueS3wIjexaeIxCCZiRNUAR uXKGn9LU3xQEOdJBS3CCRVoWRIA JLyTKOZQAEQURPpJP2CXYGeXKhW bFZFlGMRbH5fCW5yLT8puXczoXf SbNNgkPAWjFiWrY6JtNBQojywrE NNjBWMJSR4QGDKIGEYAYd8RPQD4 YZPvyokzxPP2YBzhymDqcVz3tEY emZvvqT3hXqtmibCdIWZjOLFRsn XFBNuvO84rdwXoB4GcwYSgNNWjB EfpGG16zHCuDWIhnGUxBPz5iL1o ULyvcJifcsWEwQGqyG2yddyoNEd jZjBccGFyXGxpMFxsczBccGFyfQ == [facility] Work Phone: Case Report [facility] Work Phone: Clinical History k5sibLPnYHXxuKQuKERp K9rgceU mYCQxgTVhW7OizephADxdVW7lXC 5zrYsafMQrfIQpPHXnNsFqs1aff 931lKFnv7mbURFQzpgykMb0aZnn T03cy4R5EuqmU7bkSFDgKWyjKUX oDYelyOGxYIu9RSQqbEWznmVdCo ZeXFFyuMJkjAO5SYPxCG0ekvzuN XrlAKljHTVtsbI9IFTpoCVyY5Wm KLIoWR3rvragWVI0ZUksGQXdSNC 4JdAiKCQuf8Tvftf3XtLboTa1e5 fePAXwFYSrqUcac7qxBBJ0NEFtg PJeR8pflC3rKPBzZM0wcxofa4dy QSqxJRfqDYWogRF5irC2NTAnwEV pC8NetW4aZEXxKDZtsdUxgQisqJ 5cZnMyMFxjZjEgUmVuYWwgdHJhb qIplPVgsH5xZYOrnq2= [facility] Work Phone: For Immediate Release to Patient's MyChart? Yes Yes [facility] Work Phone: Gross Description o3bnoAQqQWFxbWDeDGLb O8citqD lIEWmoUUzM2AmtcwiPZzqPR0hGU 5kvDqivFAqqGJoDYVtPmRzb5mca 744hMBia5hwOSKHyibbrWs2rTam V33oj0M2YhmyH21tsRJrIDS1XZR gFFAxqXLnNBLvSVY0VUQxdFFwV0 usZBArQR2peukcSXovTAnxBSJtn PY4WXXkuVSfG8IgLRHuDNdvVRQt evi3IqRzWu4sqMLitJpwOAjhSIP kXHBsYWluXGZzMjAgTExMIEJBTF ygKVSlCUAdqXZlRQi5YLYkvU4pm NPzlzKhqGJqtP7pqHquKZouKQDd FUQRBRZkfZkzLIWDQVVnu8CpfZ2 ccGFyXHBhcmRccGFyXHBhcn0= [facility] Work Phone: [facility] Work Phone: HEPATIC FUNCTION PANELon Albumin [Mass/Vol] 3.2 g/dL Low 3.5-5.0 [facility] Comment on above: Performed By: #### M MERLE CHM7, HFP ####[facility] (DEFAULT)[address] [facility] [place] [address] ALP [Catalytic activity/Vol] 118 U/L Normal 32-126 [facility] Comment on above: Performed By: #### M MERLE CHM7, HFP ####[facility] (DEFAULT)[address] [facility] [place] [address] ALT [Catalytic activity/Vol] 25 U/L Normal 10-52 [facility] Comment on above: Performed By: #### M GO CHM7, HFP ####[facility] (DEFAULT)[address] [facility] [place] [address] AST [Catalytic activity/Vol] 32 U/L Normal 10-39 [facility] Comment on above: Performed By: #### M GO, CHM7, HFP ####[facility] (DEFAULT)[address] [place] [address] Bilirubin [Mass/Vol] 1.0 mg/dL Normal <1.5 [facility] Comment on above: Performed By: #### M NATHANIEL BLOOM, HFP ####[facility] (DEFAULT)[address] [place] [address] Bilirubin.indirect [Mass/Vol] 0.3 mg/dL High <0.3 [facility] Comment on above: Performed By: #### NATHANIEL RAMÍREZ, HFP ####[facility] (DEFAULT)[address] [facility] [place] [address] Protein [Mass/Vol] 6.5 g/dL Normal 6.4-8.3 [facility] Comment on above: Performed By: #### NATHANIEL RAMÍREZ, HFP ####[facility] (DEFAULT)[address] [place] [address] Albumin [Mass/Vol] 3.2 g/dL Low 3.5 - 5.0 g/dL [facility] ALP [Catalytic activity/Vol] 118 U/L 32 - 126 U/L [facility] ALT [Catalytic activity/Vol] 25 U/L 10 - 52 U/L [facility] AST [Catalytic activity/Vol] 32 U/L 10 - 39 U/L [facility] Bilirubin [Mass/Vol] 1.0 mg/dL NINF - 1.5 mg/dL [facility] Bilirubin.direct [Mass/Vol] 0.3 mg/dL High NINF - 0.3 mg/dL [facility] Protein [Mass/Vol] 6.5 g/dL 6.4 - 8.3 g/dL [facility] HISTOPLASMA AND BLASTOMYCES ANTIGEN, ENZYME IMMUNOASSAY, SERMon 09-03-2023 Histoplasma/Blastomy antonia Ag Result Detected Critically abnormal Not Detected [facility] Histoplasma/Blastomy antonia Ag Value 5.3 ng/mL [facility] Interpretation and review of laboratory results Abnormal [facility] IMMUNOPHENOTYPING, TISSUE/FL UIDon 09-03-2023 BKR DX CODE Use Ordering Normal [facility] Comment on above: Order Comment: Plejoan e lab add on to specimen collected yesterdayIMMUNOPHENOTYPING DIAGNOSISPATIENT NAME: GEORGE SLATER: 1970MRN: [id number]#: [id number] BY: Yossi Perla M.D,, Ph.D. [id number] TYPE: Bronchial Alveolar LavageLABORATORY INTERPRETATION:There is no [...] performance characteristicsdetermined The Flow Cytometry Laboratory at [facility]. It has notbeen cleared or approved by the FDA. This laboratory is certifiedunder the Clinical Laboratory Improvement Amendments (CLIA)as qualified to perform high complexity clinical laboratorytesting. This test is used for clinical purposes. It should notbe regarded as investigational or for research.[facility] Flow Cytometry Laboratory lower limitof CLL MRD detection is 0.1% of the gated lymphocytes. Performed By: #### G IPP ####[facility] (DEFAULT)[address] [place] [address] Flow Interpretation See Comment Normal [facility] Comment on above: Order Comment: Dilan gregory lab add on to specimen collected yesterdayIMMUNOPHENOTYPING DIAGNOSISPATIENT NAME: GEORGE SLATER: 1970MRN: [id number]#: [id number] BY: Yossi Perla M.D,, Ph.D. [id number] TYPE: Bronchial Alveolar LavageLABORATORY INTERPRETATION:There is no [...] performance characteristicsdetermined The [facility]. It has notbeen cleared or approved by the FDA. This laboratory is certifiedunder the Clinical Laboratory Improvement Amendments (CLIA)as qualified to perform high complexity clinical laboratorytesting. This test is used for clinical purposes. It should notbe regarded as investigational or for research.[facility] Flow Cytometry Laboratory lower limitof CLL MRD detection is 0.1% of the gated lymphocytes. Performed By: #### G [facility] ####[facility] ([facility])[address] [place] [address] Flow Interpreted by: Yossi Perla MD, PhD [facility] Comment on above: Order Comment: Pleas e lab add on to specimen collected yesterdayIMMUNOPHENOTYPING DIAGNOSISPATIENT NAME: GEORGE SLATER: 1970MRN: [id number]#: [id number] BY: Yossi Perla M.D,, Ph.D. [id number] TYPE: Bronchial Alveolar LavageLABORATORY INTERPRETATION:There is no [...] performance characteristicsdetermined The [facility] at [facility]. It has notbeen cleared or approved by the FDA. This laboratory is certifiedunder the Clinical Laboratory Improvement Amendments (CLIA)as qualified to perform high complexity clinical laboratorytesting. This test is used for clinical purposes. It should notbe regarded as investigational or for research.[facility] Flow Cytometry Laboratory lower limitof CLL MRD detection is 0.1% of the gated lymphocytes. Performed By: #### G IPP ####[facility] (DEFAULT)[address] [place] [address] MAGNESIUMon 09-03-2023 Magnesium [Mass/Vol] 1.6 mg/dL Normal 1.6-2.6 [facility] Comment on above: Performed By: #### M GO, CHM7, [facility] ####[facility] (DEFAULT)[address] [place] [address] Interpretation and review of laboratory results Normal [facility] Magnesium [Mass/Vol] 1.6 mg/dL 1.6 - 2 .6 mg/dL [facility] No Panel Informationon 09-03 Interpretation and review of laboratory results Abnormal [facility] PARVOVIRUS (B19) DNA, PCR, B LOODon 09-03-2023 PARVOVIRUS B19 BY RAPID PCR Not detected Not Detected [facility] OR SPEC SOURCE Whole Blood [facility] Portable XR Chest Viewson RADIOLOGY RADIOLOGY [facility] Radiology Study observation (narrative) [facility] Portable XR Chest ViewsOrder ed By: [place] on 09-03-2023 [facility] Work Phone: XR CHEST PORTABLEon 09-03-20 23 XR CHEST PORTABLE Normal [place] ACID FAST CULTUREon 09-02-20 23 Bacteria identified Cx Nom (Unsp spec) NO GROWTH DAY 42 OF 42 Normal [facility] Comment on above: Performed By: #### A FB ####[facility] (DEFAULT)[address] [place] [address] Fluorochrome Stain No acid Fast Bacillus Seen Normal [facility] Comment on above: Performed By: #### A FB ####[facility] (DEFAULT)[address] [place] [address] Bacteria identified Cx Nom (Unsp spec) NO GROWTH DAY 42 OF 42 Normal [facility] Comment on above: Order Comment: BAL A FB culture. Clinical suspicion for non-tuberculous mycobacteria Performed By: #### A FB ####[facility] (DEFAULT)[address] [place] [address] Fluorochrome Stain No acid Fast Bacillus Seen Normal [facility] Comment on above: Order Comment: BAL A FB culture. Clinical suspicion for non-tuberculous mycobacteria Performed By: #### A FB ####[facility] (DEFAULT)[address] [place] [address] ASPERGILLUS (GALACTOMANNAN), ANTIGENon 09-02-2023 Galactomannan Ag IA Qn <0.500 [facility] ASPERGILLUS ANTIGEN, BALon 1 Aspergillus Galactomannan Antigen, BAL <0.500 Normal <0.5 [facility] Comment on above: Result Comment: ---- ADDITIONAL INFORMATION This is a qualitative test and the resulted index value isnot indicative of disease severity. Serial testing isrecommended for patients at high risk for invasiveaspergillosis.This assay was performed using the FDA-cleared [employer] Aspergillus Galactomannan EIA.Test Performed by:[address] Director: Rosendo Bose M.D. Ph.D.; CLIA# [id number] Performed By: #### X ASGFL ####[facility] (DEFAULT)[address] [address] Aspergillus Galactomannan Antigen, BAL <0.500 Normal <0.5 [facility] Comment on above: Order Comment: BAL a spirgillus antigen Result Comment: ---- ADDITIONAL INFORMATION This is a qualitative test and the resulted index value isnot indicative of disease severity. Serial testing isrecommended for patients at high risk for invasiveaspergillosis.This assay was performed using the FDA-cleared [employer] Aspergillus Galactomannan EIA.Test Performed by:[address] Director: Rosendo Bose M.D. Ph.D.; CLIA# [id number] Performed By: #### X ASGFL ####[facility] (DEFAULT)[address] [address] ATYPICAL BACTERIAL PNEUMONIA ,PCROrdered By: Shari Contreras on 09-02-2023 B. parapertussis DNA ESTELITA+probe Ql (Unsp spec) Not detected Not Detected [facility] B. pertussis DNA ESTELITA+probe Ql (Unsp spec) Not detected Not Detected [facility] C. pneumoniae DNA ESTELITA+probe Ql (Unsp spec) Not detected Not Detected [facility] Interpretation and review of laboratory results Normal [facility] M. pneumoniae DNA ESTELITA+probe Ql (Unsp spec) Not detected Not Detected [facility] ATYPICAL BACTERIAL PNEUMONIA ,PCRon 09-02-2023 Bordetella Parapertussis Not detected Normal Not Detected [facility] Comment on above: Order Comment: Viral [...] by The Clinical Microbiology Laboratory at [facility]. It has not been cleared or approved by the FDA. The laboratory is required under CLIA as qualified to perform high-complexity testing. This test is used for clinical purposes. It should not be regarded as investigational or for research. Performed By: #### A TYPNE ####[facility] (DEFAULT)[address] [place] [address] Bordetella Pertussis Not detected Normal Not Detected [facility] Comment on above: Order Comment: Viral [...] by The Clinical Microbiology Laboratory at [facility]. It has not been cleared or approved by the FDA. The laboratory is required under CLIA as qualified to perform high-complexity testing. This test is used for clinical purposes. It should not be regarded as investigational or for research. Performed By: #### A TYPNE ####[facility] (DEFAULT)[address] [address] Chlamydia Pneumoniae Not detected Normal Not Detected [facility] Comment on above: Order Comment: Viral [...] by The Clinical Microbiology Laboratory at [facility]. It has not been cleared or approved by the FDA. The laboratory is required under CLIA as qualified to perform high-complexity testing. This test is used for clinical purposes. It should not be regarded as investigational or for research. Performed By: #### A TYPNE ####[facility] (DEFAULT)[address] [place] [address] Mycoplasma Pneumoniae Not detected Normal Not Detected [facility] Comment on above: Order Comment: Viral [...] by The Clinical Microbiology Laboratory at [facility]. It has not been cleared or approved by the FDA. The laboratory is required under CLIA as qualified to perform high-complexity testing. This test is used for clinical purposes. It should not be regarded as investigational or for research. Performed By: #### A TYPNE ####[facility] (DEFAULT)[address] [place] [address] BAL CONSULTon 09-02-2023 ALVEOLAR MACROPHAGES 33 % Normal [facility] Comment on above: Order Comment: BAL c onsultIf > 15% lymphocytes - please send for flow. Performed By: #### B ALC ####[facility] (DEFAULT)[address] [place] [address] Bal comments Correlation with microbiology stains and cultures is recommended. Correlation with viral studies is recommended. Normal [facility] Comment on above: Order Comment: BAL c onsultIf > 15% lymphocytes - please send for flow. Performed By: #### B ALC ####[facility] (DEFAULT)[address] [place] [address] Bal Diff Quik Stain Quality Check Acceptable Normal [facility] Comment on above: Order Comment: BAL c onsultIf > 15% lymphocytes - please send for flow. Performed By: #### B ALC ####[facility] (DEFAULT)[address] [place] [address] Bal Reviewed By: Leonardo Peralta MD [facility] Comment on above: Order Comment: BAL c onsultIf > 15% lymphocytes - please send for flow. Performed By: #### B ALC ####[facility] (DEFAULT)[address] [place] [address] BKR BAL INTERPRETATION Cellular specimen comprised of alveolar macrophages and small lymphocytes. No definitive microorganisms are observed. Rare degenerating cells with changes suggestive of viral cytopathic effect are noted. Moderate degenerative changes. Normal [facility] Comment on above: Order Comment: BAL c onsultIf > 15% lymphocytes - please send for flow. Performed By: #### B ALC ####[facility] (DEFAULT)[address] [place] [address] BKR DX CODE Use Ordering Normal [facility] Comment on above: Order Comment: BAL c onsultIf > 15% lymphocytes - please send for flow. Performed By: #### B ALC ####[facility] (DEFAULT)[address] [place] [address] Eosinophils/100 WBC (Bld) 0 % Normal [facility] Comment on above: Order Comment: BAL c onsultIf > 15% lymphocytes - please send for flow. Performed By: #### B ALC ####[facility] (DEFAULT)[address] [place] [address] Lymphocytes/100 WBC (Bld) 49 % Normal [facility] Comment on above: Order Comment: BAL c onsultIf > 15% lymphocytes - please send for flow. Performed By: #### B ALC ####[facility] (DEFAULT)[address] [place] [address] Neutrophils/100 WBC (Bld) 18 % Normal [facility] Comment on above: Order Comment: BAL c onsultIf > 15% lymphocytes - please send for flow. Performed By: #### B ALC ####[facility] (DEFAULT)[address] [place] [address], [place] [address] ALVEOLAR MACROPHAGES 32 % Normal [facility] Comment on above: Order Comment: BAL c onsult for cell differential and pathologist review. Please do flow cytometry if > 12% lymphocytes Performed By: #### B ALC ####[facility] (DEFAULT)[address] [place] [address] Bal comments Correlation with microbiology stains and cultures is recommended. Normal [facility] Comment on above: Order Comment: BAL c onsult for cell differential and pathologist review. Please do flow cytometry if > 12% lymphocytes Performed By: #### B ALC ####[facility] (DEFAULT)[address] [place] [address], [place] [address] Bal Diff Quik Stain Quality Check Acceptable Normal [facility] Comment on above: Order Comment: BAL c onsult for cell differential and pathologist review. Please do flow cytometry if > 12% lymphocytes Performed By: #### B ALC ####[facility] (DEFAULT)[address] [place] [address] [place] [address] Bal Reviewed By: Leonardo Peralta MD [facility] Comment on above: Order Comment: BAL c onsult for cell differential and pathologist review. Please do flow cytometry if > 12% lymphocytes Performed By: #### B ALC ####[facility] (DEFAULT)[address] [place] [address], [place] [address] BKR BAL INTERPRETATION Cellular specimen comprised of alveolar macrophages and small lymphocytes. No definitive microorganisms are observed. Moderate degenerative changes. Normal [facility] Comment on above: Order Comment: BAL c onsult for cell differential and pathologist review. Please do flow cytometry if > 12% lymphocytes Performed By: #### B ALC ####[facility] (DEFAULT)[address] [place] [address] [place] [address] BKR DX CODE Use Ordering Normal [facility] Comment on above: Order Comment: BAL c onsult for cell differential and pathologist review. Please do flow cytometry if > 12% lymphocytes Performed By: #### B ALC ####[facility] (DEFAULT)[address] [place] [address] Eosinophils/100 WBC (Bld) 0 % Normal [facility] Comment on above: Order Comment: BAL c onsult for cell differential and pathologist review. Please do flow cytometry if > 12% lymphocytes Performed By: #### B ALC ####[facility] (DEFAULT)[address] [place] [address] Lymphocytes/100 WBC (Bld) 57 % Normal [facility] Comment on above: Order Comment: BAL c onsult for cell differential and pathologist review. Please do flow cytometry if > 12% lymphocytes Performed By: #### B ALC ####[facility] (DEFAULT)[address] [place] [address] Neutrophils/100 WBC (Bld) 11 % Normal [facility] Comment on above: Order Comment: BAL c onsult for cell differential and pathologist review. Please do flow cytometry if > 12% lymphocytes Performed By: #### B ALC ####[facility] (DEFAULT)[address] [place] [address] BRONCHOSCOPYon 09-02-2023 Radiology Study observation (narrative) [facility] Bacteria identified Cx Nom ( Bld)on 09-02-2023 Bacteria identified Cx Nom (Unsp spec) NO GROWTH DAY 5 OF 5 [facility] CBC,PLATELETSon 09-02-2023 Hematocrit (Bld) [Volume fraction] 39.9 % Normal 39.6-48.8 [facility] Comment on above: Performed By: #### H EMO ####[facility] (DEFAULT)[address] [place] [address] Hemoglobin (Bld) [Mass/Vol] 12.9 g/dL Low 13.4-16.8 [facility] Comment on above: Performed By: #### H EMOGC ####[facility] (DEFAULT)[address] [place] [address] MCV (RBC) [Entitic vol] 86.4 fL Normal 79.0-94.5 [facility] Comment on above: Performed By: #### H EMOGC ####[facility] (DEFAULT)[address] [place] [address] Mean Cell Hgb 27.9 pg Normal 26.1-33.3 [facility] Comment on above: Performed By: #### H EMOGC ####[facility] (DEFAULT)[address] [place] [address] Mean Cell Hgb Conc 32.3 g/dL Normal 31.9-36.5 [facility] Comment on above: Performed By: #### H EMOGC ####[facility] (DEFAULT)[address] [place] [address] Platelet mean volume (Bld) [Entitic vol] 9.5 fL Normal 8.7-12.3 [facility] Comment on above: Performed By: #### H EMOGC ####[facility] (DEFAULT)[address] [place] [address] Platelets (Bld) [#/Vol] 210 10*3/uL Normal 146-337 [facility] Comment on above: Performed By: #### H EMOGC ####[facility] (DEFAULT)[address] [place] [address] RBC (Bld) [#/Vol] 4.62 10*6/uL Normal 4.38-5.83 [facility] Comment on above: Performed By: #### H EMOGC ####[facility] (DEFAULT)[address] [place] [address] RBC Distribution 13.2 % Normal 10.9-14.3 [facility] Comment on above: Performed By: #### H EMOGC ####[facility] [facility] (DEFAULT)[address] [place] [address] WBC (Bld) [#/Vol] 4.12 10*3/uL Normal 3.73-10.10 [facility] Comment on above: Performed By: #### H [facility] ####[facility] (DEFAULT)[address] [place] [address] Erythrocyte distribution width (RBC) [Ratio] 13.2 % 10.9 - 14.3 % [facility] Hematocrit (Bld) [Volume fraction] 39.9 % 39.6 - 48.8 % [facility] Hemoglobin (Bld) [Mass/Vol] 12.9 g/dL Low 13.4 - 16.8 g/dL [facility] Interpretation and review of laboratory results Abnormal [facility] MCH (RBC) [Entitic mass] 27.9 pg 26.1 - 33.3 pg [facility] MCHC (RBC) [Mass/Vol] 32.3 g/dL 31.9 - 36.5 g/dL [facility] MCV (RBC) [Entitic vol] 86.4 fL 79.0 - 94.5 fL [facility] Platelet mean volume (Bld) [Entitic vol] 9.5 fL 8.7 - 12.3 fL [facility] Platelets (Bld) [#/Vol] 210 10*3/uL 146 - 337 K/uL [facility] RBC (Bld) [#/Vol] 4.62 10*6/uL [facility] WBC (Bld) [#/Vol] 4.12 10*3/uL 3.73 - 10. 10 K/uL [facility] CHEM 7 (LYTES,BUN,CREA,GLUC) on 09-02-2023 Anion gap [Moles/Vol] 13 mmol/L Normal 7-17 [facility] Comment on above: Performed By: #### H DOMENICA MONCADA CHM7 ####[facility] (DEFAULT)[address] [place] [address] Chloride [Moles/Vol] 105 mmol/L Normal 98-108 [facility] Comment on above: Performed By: #### H DOMENICA MONCADA CHM7 ####[facility] (DEFAULT)[address] [place] [address] CO2 [Moles/Vol] 22 mmol/L Normal 21-31 [facility] Comment on above: Performed By: #### H FP MGO CHM7 ####[facility] (DEFAULT)[address] [place] [address] Creatinine [Mass/Vol] 1.25 mg/dL Normal 0.70-1.30 [facility] Comment on above: Performed By: #### H FP MGO CHM7 ####[facility] (DEFAULT)[address] [place] [address] GFR/1.73 sq M.predicted among non-blacks MDRD (S/P/Bld) [Vol rate/Area] 69 mL/min/{1.73_m2} Normal >=60 [facility] Comment on above: Result Comment: Repo rted eGFR is based on the CKD-EPI 2020 equation using creatinine, age, and sex. Performed By: #### H ANTWAN MGO CHM7 ####[facility] (DEFAULT)[address] [place] [address] Glucose [Mass/Vol] 105 mg/dL High 70-99 [facility] Comment on above: Performed By: #### H FP MGO, CHM7 ####[facility] (DEFAULT)[address] [facility] [place] [place] [address] Osmolality [Osmolality] 287 mosm/kg Normal 278-305 [facility] Comment on above: Performed By: #### H FP MGO, CHM7 ####[facility] (DEFAULT)[address] [place] [address] Potassium [Moles/Vol] 4.3 mmol/L Normal 3.5-5.0 [facility] Comment on above: Performed By: #### H FP, MGO, CHM7 ####[facility] (DEFAULT)[address] [place] [address] Sodium [Moles/Vol] 136 mmol/L Normal 135-145 [facility] Comment on above: Performed By: #### H DOMENICA MONCADA CHM7 ####[facility] (DEFAULT)[address] [place] [address] Urea nitrogen [Mass/Vol] 16 mg/dL Normal 7-25 [facility] Comment on above: Performed By: #### H DOMENICA MONCADA CHM7 ####[facility] (DEFAULT)[address] [place] [address] Urea nitrogen/Creatinine [Mass ratio] 13 mg/mg Normal [facility] Comment on above: Performed By: #### H DOMENICA MONCADA CHM7 ####[facility] (DEFAULT)[address] [place] [address] Anion gap [Moles/Vol] 13 mmol/L 7 - 17 mmol/L [facility] Chloride [Moles/Vol] 105 mmol/L 98 - 10 8 mmol/L [facility] CO2 [Moles/Vol] 22 mmol/L 21 - 31 mmol/L [facility] Creatinine [Mass/Vol] 1.25 mg/dL 0.70 - 1.30 mg/dL [facility] eGFR, CKD-EPI, Male 69 - [facility] Glucose [Mass/Vol] 105 mg/dL High 70 - 99 mg/dL [facility] Osmolality Calc [Osmolality] 287 [facility] Potassium [Moles/Vol] 4.3 mmol/L 3.5 - 5.0 mmol/L [facility] Sodium [Moles/Vol] 136 mmol/L 135 - 145 mmol/L [facility] Urea nitrogen [Mass/Vol] 16 mg/dL 7 - 25 mg/dL [facility] Urea nitrogen/Creatinine [Mass ratio] 13 mg/mg [facility] CMV PCR,FLUIDS,URINE,EYE ETC on 09-02-2023 CMV by PCR Result Negative Normal Negative [place] Comment on above: Result Comment: ---- ADDITIONAL INFORMATION This test was developed and its performance characteristicsdetermined by [facility] in a manner consistent with CLIArequirements. This test has not been cleared or approved bythe U.S. Food and Drug Administration.Test Performed by:[place] [id number] Director: Rosendo Bose M.D. Ph.D.; CLIA# [id number] Performed By: #### Y CMV ####[facility] (DEFAULT)[address] [address] CMV BY PCR SOURCE BAL [facility] Normal [place] Comment on above: Performed By: #### Y CMV ####[facility] (DEFAULT)[address] [address] CMV by PCR Result Negative Normal Negative [place] Comment on above: Result Comment: ---- ADDITIONAL INFORMATION This test was developed and its performance characteristicsdetermined by [facility] in a manner consistent with CLIArequirements. This test has not been cleared or approved bythe U.S. Food and Drug Administration.Test Performed by:[address] [address]Ird Director: Rosendo Bose M.D. Ph.D.; CLIA# [id number] Performed By: #### Y CMV ####[facility] (DEFAULT)[address] [address] CMV BY PCR SOURCE BAL [facility] Normal [place] Comment on above: Performed By: #### Y CMV ####[facility] (DEFAULT)[address] [address] CYTOLOGY, NON-GYNon 09-02-20 CYTOLOGIC DIAGNOSIS Normal [facility] Comment on above: Result Comment: A. B RONCHOALVEOLAR LAVAGE, LEFT LOWER LOBE (CYTOLOGY):FINAL DIAGNOSIS:No Malignant Cells Are IdentifiedHypocellular Specimen Performed By: #### N ONGNNONFNA ####[facility] (DEFAULT)[address] [place] [address] Case Report Normal [facility] Comment on above: Result Comment: Medi abhishek Cytology Report Case: [id number] Provider: Crow Diaz MD Collected: 09/02/2023 08:38 AMOrdering [facility] Received: 09/02/2023 10:44 AMPathologist: KENTON Caglepecimen: BRONCHOALVEOLAR LAVAGE, LLL BAL Performed By: #### N ONGNGRAEMEFNA ####[facility] (DEFAULT)[address] [place] [address] Clinical History Renal transplant. Normal [facility] Comment on above: Performed By: #### N ONGNGRAEMEFNA ####[facility] (DEFAULT)[address] [place] [address] Gross Description Normal [place] Comment on above: Result Comment: LLL BAL1 ml hazy colorless fld unfixed1 TP slide Pap stainFor Immediate Release to Patient's MyChart? Yes Performed By: #### N ONGNNONFNA ####[facility] (DEFAULT)[address] [place] [address], [place] [address] FUNGUS CULTUREon 09-02-2023 Bacteria identified Cx Nom (Unsp spec) Normal [facility] Comment on above: Order Comment: Ident ification was performed on the MALDI-TOF mass spectrometer [employer]. This test was developed by [facility]. It has not been cleared or approved by the FDA. The laboratory is regulated under CLIA as qualified to perform high-complexity testing. This test is used for clinical purposes. It should not be regarded as investigational or for research. Result Comment: Grow [id number] [place] Histoplasma capsulatum Performed By: #### F UN ####[facility] (DEFAULT)[address] [place] [address] Bacteria identified Cx Nom (Unsp spec) NO GROWTH DAY 28 OF 28 Normal [facility] Comment on above: Order Comment: BAL f ungal culture Performed By: #### F UN ####[facility] (DEFAULT)[address] [place] [address] HEPATIC FUNCTION PANELon Albumin [Mass/Vol] 3.2 g/dL Low 3.5-5.0 [facility] Comment on above: Performed By: #### H FP, MGO, CHM7 ####[facility] (DEFAULT)[address] [place] [address] ALP [Catalytic activity/Vol] 107 U/L Normal 32-126 [facility] Comment on above: Performed By: #### H FP, MGO, CHM7 ####[facility] (DEFAULT)[address] [place] [address] ALT [Catalytic activity/Vol] 20 U/L Normal 10-52 [facility] Comment on above: Performed By: #### H FP, MGO, CHM7 ####[facility] (DEFAULT)[address] [place] [address] AST [Catalytic activity/Vol] 31 U/L Normal 10-39 [facility] Comment on above: Performed By: #### H FP, MGO, CHM7 ####[facility] (DEFAULT)[address] [place] [address] Bilirubin [Mass/Vol] 1.0 mg/dL Normal <1.5 [facility] Comment on above: Performed By: #### H FP, MGO, CHM7 ####[facility] (DEFAULT)[address] [place] [address] Bilirubin.indirect [Mass/Vol] 0.3 mg/dL High <0.3 [facility] Comment on above: Performed By: #### H DOMENICA MONCADA CHM7 ####[facility] (DEFAULT)[address] [place] [address] Protein [Mass/Vol] 6.6 g/dL Normal 6.4-8.3 [facility] Comment on above: Performed By: #### H DOMENICA MONCADA CHM7 ####[facility] (DEFAULT)[address] [place] [address] Albumin [Mass/Vol] 3.2 g/dL Low 3.5 - 5.0 g/dL [facility] ALP [Catalytic activity/Vol] 107 U/L 32 - 126 U/L [facility] ALT [Catalytic activity/Vol] 20 U/L 10 - 52 U/L [facility] AST [Catalytic activity/Vol] 31 U/L 10 - 39 U/L [facility] Bilirubin [Mass/Vol] 1.0 mg/dL NINF - 1.5 mg/dL [facility] Bilirubin.direct [Mass/Vol] 0.3 mg/dL High NINF - 0.3 mg/dL [facility] Protein [Mass/Vol] 6.6 g/dL 6.4 - 8.3 g/dL [facility] HISTOPLASMA ANTIGEN, FLUIDon 09-02-2023 FH SOURCE BAL RML Normal [facility] Comment on above: Performed By: #### Y FHST ####[facility] (DEFAULT)[address] [place] [address] Histo FLD interpretation Negative Normal [facility] Comment on above: Result Comment: ---- ADDITIONAL INFORMATION Reference interval: None DetectedReportable Range: Positive Results reported in ng/mL from0.20 ng/mL to 20.00 ng/mLPositive Results above 20.00 ng/mL are reported as 'Abovethe Limit of Quantification'Cross-reactions occur with Blastomyces spp., Coccidioidesspp., and Paracoccidioides brasiliensis.This test was developed and its performance characteristicsdetermined by [employer]. It has not beencleared or approved by the FDA; however, FDA clearance orapproval is not currently required for clinical use. Theresults are not intended to be used as the sole means forclinical diagnosis or patient management decisions.Test Performed by:[id number] [facility] [place] [address] Performed By: #### Y ST ####[facility] (DEFAULT)[address] [place] [address] Histoplasma Antigen, FLUID Not detected Normal [facility] Comment on above: Performed By: #### Y ST ####[facility] (DEFAULT)[address] [place] [address] HISTOPLASMA ANTIGEN,URINEon 09-02-2023 H. capsulatum Ag (U) [Mass/Vol] Not detected ng/mL [facility] H. capsulatum Ag IA Ql (U) Not detected Not Detected [facility] HISTOPLASMA CAPSULATUM/BLAST OMYCES SPECIES,PCR FLUIDon 09-02-2023 HISTO/BLASTO RESULT Negative Normal Not Applicable [facility] Comment on above: Result Comment: A Ne gative result from BAL fluid does not rule out thepresence of Histoplasma capsulatum because the sensitivity from this source is suboptimal. ADDITIONAL INFORMATION This test was developed and its performance characteristicsdetermined by [facility] in a manner consistent with CLIArequirements. This test has not been cleared or approved bythe U.S. Food and Drug Administration.Test Performed by:[address] [id number] Director: Rosendo Bose M.D. Ph.D.; CLIA# [id number] Performed By: #### Y HBRP ####[facility] (DEFAULT)[address] [place] [address] Source BAL RML Normal [facility] Comment on above: Performed By: #### Y HBRP ####[facility] (DEFAULT)[address] [place] [address] HIV 1 AND 2 ANTIBODIES/P24 A NTIGENOrdered By: Wilma Luque on 09-02-2023 HIV 1+2 Ab+HIV1 p24 Ag IA Ql Non-Reactive Non Reactive [facility] Interpretation and review of laboratory results Normal [facility] HIV 1 AND 2 ANTIBODIES/P24 A NTIGENon 09-02-2023 HIV-1/HIV-2 Ab With p24 Antigen Non-Reactive Normal Non Reactive [facility] Comment on above: Performed By: #### L YUPLRE87 ####[facility] (DEFAULT)[address] [place] [address] LEGIONELLA CULTUREon 023 Bacteria identified Cx Nom (Unsp spec) NO GROWTH DAY 7 OF 7 Normal [facility] Comment on above: Performed By: #### L EGN ####[facility] (DEFAULT)[address] [place] [address] Bacteria identified Cx Nom (Unsp spec) NO GROWTH DAY 7 OF 7 Normal [facility] Comment on above: Order Comment: BAL l egionella culture Performed By: #### L EGN ####[facility] (DEFAULT)[address] [place] [address] LEGIONELLA PCRon 09-02-2023 Legionella species, Culture BAL RML Normal [facility] Comment on above: Performed By: #### Y LEGRP ####[facility] (DEFAULT)[address] [place] [address] Legionella, pcr result Negative Normal Not Applicable [facility] Comment on above: Result Comment: ---- ADDITIONAL INFORMATION This test was developed and its performance characteristicsdetermined by [facility] in a manner consistent with CLIArequirements. This test has not been cleared or approved bythe U.S. Food and Drug Administration.Test Performed by:[address] [id number] Director: Rosendo Bose M.D. Ph.D.; CLIA# [id number] Performed By: #### Y LEGRP ####[facility] (DEFAULT)[address] [place] [address] LOWER RESPIRATORY CULTURE, B ACTERIALon 09-02-2023 Bacteria identified Cx Nom (Unsp spec) NO GROWTH DAY 2 OF 2 Normal [facility] Comment on above: Performed By: #### R ES ####[facility] (DEFAULT)[address] [place] [address] Microscopic observation Gram stain Nom (Unsp spec) Normal [facility] Comment on above: Result Comment: Cyto centrifuge preparationNeutrophils, RareRed Blood Cells PresentNo organisms seen Performed By: #### R ES ####[facility] (DEFAULT)[address] [place] [address] Bacteria identified Cx Nom (Unsp spec) NO GROWTH DAY 2 OF 2 Normal [facility] Comment on above: Order Comment: BAL b acterial respiratory culture Performed By: #### R ES ####[facility] (DEFAULT)[address] [place] [address] Microscopic observation Gram stain Nom (Unsp spec) Normal [facility] Comment on above: Order Comment: BAL b acterial respiratory culture Result Comment: Cyto centrifuge preparationNeutrophils, ModerateRed Blood Cells PresentNo organisms seen Performed By: #### R ES ####[facility] (DEFAULT)[address] [place] [address] MAGNESIUMon 09-02-2023 Magnesium [Mass/Vol] 1.7 mg/dL Normal 1.6-2.6 [facility] Comment on above: Performed By: #### H FP, MGO, CHM7 ####[facility] (DEFAULT)[address] [place] [address] Interpretation and review of laboratory results Normal [facility] Magnesium [Mass/Vol] 1.7 mg/dL 1.6 - 2 .6 mg/dL [facility] No Panel Informationon 09-02 Interpretation and review of laboratory results Abnormal [facility] PNEUMOCYSTIS JIROVECI,PCRon 09-02-2023 PN Report Status DNR Normal [facility] Comment on above: Performed By: #### Y PNRP ####[facility] (DEFAULT)[address] [place] [address] PN Specimen Source BAL RML Normal [facility] Comment on above: Performed By: #### Y PNRP ####[facility] (DEFAULT)[address] [place] [address] Pneum jiroveci comment DNR Normal [facility] Comment on above: Performed By: #### Y PNRP ####[facility] (DEFAULT)[address] [place] [address] Pneumocystis jiroveci,PCR result Negative Normal Not Applicable [facility] Comment on above: Result Comment: ---- ADDITIONAL INFORMATION This test was developed and its performance characteristicsdetermined by [facility] in a manner consistent with CLIArequirements. This test has not been cleared or approved bythe U.S. Food and Drug Administration.Test Performed by:[address] [id number] Director: Rosendo Bose M.D. Ph.D.; CLIA# [id number] Performed By: #### Y PNRP ####[facility] (DEFAULT)[address] [place] [address] PN Report Status DNR Normal [facility] Comment on above: Performed By: #### Y PNRP ####[facility] (DEFAULT)[address] [place] [address] PN Specimen Source BAL LLL Normal [facility] Comment on above: Performed By: #### Y PNRP ####[facility] (DEFAULT)[address] [place] [address] Pneum jiroveci comment DNR Normal [facility] Comment on above: Performed By: #### Y PNRP ####[facility] (DEFAULT)[address] [place] [address] Pneumocystis jiroveci,PCR result Negative Normal Not Applicable [facility] Comment on above: Result Comment: ---- ADDITIONAL INFORMATION This test was developed and its performance characteristicsdetermined by [facility] in a manner consistent with CLIArequirements. This test has not been cleared or approved bythe U.S. Food and Drug Administration.Test Performed by:[place] [id number] Director: Rosendo Bose M.D. Ph.D.; CLIA# [id number] Performed By: #### Y PNRP ####[facility] (DEFAULT)[address] [place] [address] TACROLIMUS LEVEL, TROUGH (OR E DRUG LEVEL)on 09-02-2023 Interpretation and review of laboratory results Normal [facility] Tacrolimus (Bld) [Mass/Vol] 4.2 ng/mL [facility] Tacrolimus, Trough 4.2 ng/mL Normal Bone Susana ow Transplant: 4.0-12.0, Therapeutic: 5.0-15.0 [facility] Comment on above: Order Comment: Pleas e draw at specified interval PRIOR to dose. Do not hold dose to wait for level. Specimens batched twice per day, (M-F) and once per day weekendsMethod performed is a chemiluminescent microparticle immunoasssay on the [employer] Analyst i2000.The range is based on experience at [facility] and users should be aware that target concentrations vary widely depending on concomitant therapy, time post-transplant, and desired degree of immunosuppression. Performed By: #### T ACRO ####[facility] (DEFAULT)[address] [place] [address] CBC,PLATELETSon 09-01-2023 Hematocrit (Bld) [Volume fraction] 38.9 % Low 39.6-48.8 [facility] Comment on above: Performed By: #### H EMOGC ####[facility] (DEFAULT)[address] [place] [address] Hemoglobin (Bld) [Mass/Vol] 12.7 g/dL Low 13.4-16.8 [facility] Comment on above: Performed By: #### H EMOGC ####[facility] (DEFAULT)[address] [place] [address] MCV (RBC) [Entitic vol] 84.6 fL Normal 79.0-94.5 [facility] Comment on above: Performed By: #### H EMOGC ####[facility] (DEFAULT)[address] [place] [address] Mean Cell Hgb 27.6 pg Normal 26.1-33.3 [facility] Comment on above: Performed By: #### H EMOGC ####[facility] (DEFAULT)[address] [place] [address] Mean Cell Hgb Conc 32.6 g/dL Normal 31.9-36.5 [facility] Comment on above: Performed By: #### H EMOGC ####[facility] (DEFAULT)[address] [place] [address] Platelet mean volume (Bld) [Entitic vol] 9.4 fL Normal 8.7-12.3 [facility] Comment on above: Performed By: #### H EMO ####[facility] (DEFAULT)[address] [place] [address] Platelets (Bld) [#/Vol] 209 10*3/uL Normal 146-337 [facility] Comment on above: Performed By: #### H EMO ####[facility] (DEFAULT)[address] [place] [address] RBC (Bld) [#/Vol] 4.60 10*6/uL Normal 4.38-5.83 [facility] Comment on above: Performed By: #### H EMO ####[facility] (DEFAULT)[address] [place] [address] RBC Distribution 13.4 % Normal 10.9-14.3 [facility] Comment on above: Performed By: #### H EMO ####[facility] (DEFAULT)[address] [place] [address] WBC (Bld) [#/Vol] 4.41 10*3/uL Normal 3.73-10.10 [facility] Comment on above: Performed By: #### H EMO ####[facility] (DEFAULT)[address] [place] [address] Erythrocyte distribution width (RBC) [Ratio] 13.4 % 10.9 - 14.3 % [facility] Hematocrit (Bld) [Volume fraction] 38.9 % Low 39.6 - 48.8 % [facility] Hemoglobin (Bld) [Mass/Vol] 12.7 g/dL Low 13.4 - 16.8 g/dL [facility] Interpretation and review of laboratory results Abnormal [facility] MCH (RBC) [Entitic mass] 27.6 pg 26.1 - 33.3 pg [facility] MCHC (RBC) [Mass/Vol] 32.6 g/dL 31.9 - 36.5 g/dL [facility] MCV (RBC) [Entitic vol] 84.6 fL 79.0 - 94.5 fL [facility] Platelet mean volume (Bld) [Entitic vol] 9.4 fL 8.7 - 12.3 fL [facility] Platelets (Bld) [#/Vol] 209 10*3/uL 146 - 337 K/uL [facility] RBC (Bld) [#/Vol] 4.60 10*6/uL [facility] WBC (Bld) [#/Vol] 4.41 10*3/uL 3.73 - 10. 10 K/uL [facility] CHEM 7 (LYTES,BUN,CREA,GLUC) on 09-01-2023 Anion gap [Moles/Vol] 14 mmol/L Normal 7-17 [facility] Comment on above: Performed By: #### H ANWTAN MGO, CHM7 ####[facility] (DEFAULT)[address] [facility] [place] [place] [address] Chloride [Moles/Vol] 103 mmol/L Normal 98-108 [facility] Comment on above: Performed By: #### H FP MGO, CHM7 ####[facility] (DEFAULT)[address] [facility] [place] [address] CO2 [Moles/Vol] 21 mmol/L Normal 21-31 [facility] Comment on above: Performed By: #### H FP MGO, CHM7 ####[facility] (DEFAULT)[address] [facility] [place] [place] [address] Creatinine [Mass/Vol] 1.16 mg/dL Normal 0.70-1.30 [facility] Comment on above: Performed By: #### H FP MGO, CHM7 ####[facility] (DEFAULT)[address] [place] [address] GFR/1.73 sq M.predicted among non-blacks MDRD (S/P/Bld) [Vol rate/Area] 76 mL/min/{1.73_m2} Normal >=60 [facility] Comment on above: Result Comment: Repo rted eGFR is based on the CKD-EPI 2020 equation using creatinine, age, and sex. Performed By: #### H FP MGO CHM7 ####[facility] (DEFAULT)[address] [place] [address] Glucose [Mass/Vol] 117 mg/dL High 70-99 [facility] Comment on above: Performed By: #### H FP MGO, CHM7 ####[facility] (DEFAULT)[address] [place] [address] Osmolality [Osmolality] 285 mosm/kg Normal 278-305 [facility] Comment on above: Performed By: #### H FP MGO, CHM7 ####[facility] (DEFAULT)[address] [place] [address] Potassium [Moles/Vol] 4.2 mmol/L Normal 3.5-5.0 [facility] Comment on above: Performed By: #### H FP MGO, CHM7 ####[facility] (DEFAULT)[address] [place] [address] Sodium [Moles/Vol] 134 mmol/L Low 135-145 [facility] Comment on above: Performed By: #### H FP, MGO, CHM7 ####[facility] (DEFAULT)[address] [place] [address] Urea nitrogen [Mass/Vol] 18 mg/dL Normal 7-25 [facility] Comment on above: Performed By: #### H FP, MGO, CHM7 ####[facility] (DEFAULT)[address] [place] [address] Urea nitrogen/Creatinine [Mass ratio] 16 mg/mg Normal [facility] Comment on above: Performed By: #### H FP, MGO, CHM7 ####[facility] (DEFAULT)[address] [place] [address] Anion gap [Moles/Vol] 14 mmol/L 7 - 17 mmol/L [facility] Chloride [Moles/Vol] 103 mmol/L 98 - 10 8 mmol/L [facility] CO2 [Moles/Vol] 21 mmol/L 21 - 31 mmol/L [facility] Creatinine [Mass/Vol] 1.16 mg/dL 0.70 - 1.30 mg/dL [facility] eGFR, CKD-EPI, Male 76 - PINF [facility] Glucose [Mass/Vol] 117 mg/dL High 70 - 99 mg/dL [facility] Osmolality Calc [Osmolality] 285 [facility] Potassium [Moles/Vol] 4.2 mmol/L 3.5 - 5.0 mmol/L [facility] Sodium [Moles/Vol] 134 mmol/L Low 135 - 145 mmol/L [facility] Urea nitrogen [Mass/Vol] 18 mg/dL 7 - 25 mg/dL [facility] Urea nitrogen/Creatinine [Mass ratio] 16 mg/mg [facility] CRYPTOCOCCAL ANTIGENon 09-01 Cryptococcus Antigen,Serum Negative Normal Negative [facility] Comment on above: Performed By: #### C RAG ####[facility] (DEFAULT)[address] [place] [address] Cryptococcus sp Ag Ql (S) Negative Negative [facility] Interpretation and review of laboratory results Normal [facility] HEPATIC FUNCTION PANELon Albumin [Mass/Vol] 3.3 g/dL Low 3.5-5.0 [facility] Comment on above: Performed By: #### H FP, MGO, CHM7 ####[facility] (DEFAULT)[address] [place] [address] ALP [Catalytic activity/Vol] 112 U/L Normal 32-126 [facility] Comment on above: Performed By: #### H FP MGO, CHM7 ####[facility] (DEFAULT)[address] [place] [address] ALT [Catalytic activity/Vol] 21 U/L Normal 10-52 [facility] Comment on above: Performed By: #### H FP, MGO, CHM7 ####[facility] (DEFAULT)[address] [place] [address] AST [Catalytic activity/Vol] 29 U/L Normal 10-39 [facility] Comment on above: Performed By: #### H FP MGO, CHM7 ####[facility] (DEFAULT)[address] [place] [address] Bilirubin [Mass/Vol] 1.0 mg/dL Normal <1.5 [facility] Comment on above: Performed By: #### H FP, MGO, CHM7 ####[facility] (DEFAULT)[address] [place] [address] Bilirubin.indirect [Mass/Vol] 0.2 mg/dL Normal <0.3 [facility] Comment on above: Performed By: #### H FP, MGO, CHM7 ####[facility] (DEFAULT)[address] [place] [address] Protein [Mass/Vol] 6.8 g/dL Normal 6.4-8.3 [facility] Comment on above: Performed By: #### H FP, MGO, CHM7 ####[facility] (DEFAULT)[address] [place] [address] Albumin [Mass/Vol] 3.3 g/dL Low 3.5 - 5.0 g/dL [facility] ALP [Catalytic activity/Vol] 112 U/L 32 - 126 U/L [facility] ALT [Catalytic activity/Vol] 21 U/L 10 - 52 U/L [facility] AST [Catalytic activity/Vol] 29 U/L 10 - 39 U/L [facility] Bilirubin [Mass/Vol] 1.0 mg/dL NINF - 1.5 mg/dL [facility] Bilirubin.direct [Mass/Vol] 0.2 mg/dL NINF - 0.3 mg/dL [facility] Protein [Mass/Vol] 6.8 g/dL 6.4 - 8.3 g/dL [facility] L. pneumophila 1 Ag IA Ql (U )Ordered By: Carolin Miles on 09-01-2023 Interpretation and review of laboratory results Normal [facility] LEGIONELLA URINARY AGOrdered By: Carolin Miles on 09-01-2023 L. pneumophila 1 Ag IA Ql (U) Negative Negative [facility] MAGNESIUMon 09-01-2023 Magnesium [Mass/Vol] 1.6 mg/dL Normal 1.6-2.6 [facility] Comment on above: Performed By: #### H FP, MGO, CHM7 ####[facility] (DEFAULT)[address] [place] [address] Interpretation and review of laboratory results Normal [facility] Magnesium [Mass/Vol] 1.6 mg/dL 1.6 - 2 .6 mg/dL [facility] No Panel Informationon 09-01 Interpretation and review of laboratory results Abnormal [facility] PARVOVIRUS (B19) DNA, PCR, B LOODon 09-01-2023 PARVOVIRUS B19 BY RAPID PCR Not detected Normal Not Detected [facility] Comment on above: Result Comment: The primers/probe used in this assay will detectparvovirus B19 and V9 (genotypes 1 # 3) but maynot detect parvovirus genotype 2. The majority ofcirculating Parvovirus B19 strains in the [facility] are genotype 1. Genotype 2 is not believed tocirculate widely in the [facility], but has beenassociated with similar clinical features as genotype1. Genotype 3 is most prevalent in some [place] [facility].This test was developed and its analyticalperformance characteristics have been determinedby [employer] [place], [place].It has not been cleared or approved by the FDA. Thisassay has been validated pursuant to the CLIAregulations and is used for clinical purposes.Test Performed at:[facility] [place] [id number] Benavides M.D., Ph.D.,Director of Laboratories Performed By: #### Y PRVP ####[facility] (DEFAULT)[address] [place] [address] OR SPEC SOURCE Whole Blood Normal [facility] Comment on above: Performed By: #### Y PRVP ####[facility] (DEFAULT)[address] [place] [address] ASPERGILLUS (GALACTOMANNAN), ANTIGENon 08-31-2023 Aspergillus Antigen <0.500 Normal <0.5 [facility] Comment on above: Result Comment: ---- ADDITIONAL INFORMATION This is a qualitative test and the resulted index value isnot indicative of disease severity. Serial testing isrecommended for patients at high risk for invasiveaspergillosis.This assay was performed using the FDA-cleared Bio-CRAZElia Aspergillus Galactomannan EIA.Test Performed by:[facility] [place] [id number] Director: Rosendo Bose M.D. Ph.D.; CLIA# [id number] Performed By: #### Y ASPR ####[facility] (DEFAULT)[address] [place] [address], [place] [address] CBC,PLATELETSon 08-31-2023 Hematocrit (Bld) [Volume fraction] 39.4 % Low 39.6-48.8 [facility] Comment on above: Performed By: #### H EMO ####[facility] (DEFAULT)[address] [place] [address] Hemoglobin (Bld) [Mass/Vol] 12.8 g/dL Low 13.4-16.8 [facility] Comment on above: Performed By: #### H EMOGC ####[facility] (DEFAULT)[address] [place] [address] MCV (RBC) [Entitic vol] 85.1 fL Normal 79.0-94.5 [facility] Comment on above: Performed By: #### H EMOGC ####[facility] (DEFAULT)[address] [place] [address] Mean Cell Hgb 27.6 pg Normal 26.1-33.3 [facility] Comment on above: Performed By: #### H EMOGC ####[facility] (DEFAULT)[address] [place] [address] Mean Cell Hgb Conc 32.5 g/dL Normal 31.9-36.5 [facility] Comment on above: Performed By: #### H EMOGC ####[facility] (DEFAULT)[address] [place] [address] Platelet mean volume (Bld) [Entitic vol] 9.6 fL Normal 8.7-12.3 [facility] Comment on above: Performed By: #### H EMOGC ####[facility] (DEFAULT)[address] [place] [address] Platelets (Bld) [#/Vol] 228 10*3/uL Normal 146-337 [facility] Comment on above: Performed By: #### H EMOGC ####[facility] (DEFAULT)[address] [place] [address] RBC (Bld) [#/Vol] 4.63 10*6/uL Normal 4.38-5.83 [facility] Comment on above: Performed By: #### H EMOGC ####[facility] (DEFAULT)[address] [place] [address] RBC Distribution 13.3 % Normal 10.9-14.3 [facility] Comment on above: Performed By: #### H [facility] ####[facility] (DEFAULT)[address] [place] [address] WBC (Bld) [#/Vol] 4.77 10*3/uL Normal 3.73-10.10 [facility] Comment on above: Performed By: #### H [facility] ####[facility] (DEFAULT)[address] [place] [address] Erythrocyte distribution width (RBC) [Ratio] 13.3 % 10.9 - 14.3 % [facility] Hematocrit (Bld) [Volume fraction] 39.4 % Low 39.6 - 48.8 % [facility] Hemoglobin (Bld) [Mass/Vol] 12.8 g/dL Low 13.4 - 16.8 g/dL [facility] Interpretation and review of laboratory results Abnormal [facility] MCH (RBC) [Entitic mass] 27.6 pg 26.1 - 33.3 pg [facility] MCHC (RBC) [Mass/Vol] 32.5 g/dL 31.9 - 36.5 g/dL [facility] MCV (RBC) [Entitic vol] 85.1 fL 79.0 - 94.5 fL [facility] Platelet mean volume (Bld) [Entitic vol] 9.6 fL 8.7 - 12.3 fL [facility] Platelets (Bld) [#/Vol] 228 10*3/uL 146 - 337 K/uL [facility] RBC (Bld) [#/Vol] 4.63 10*6/uL [facility] WBC (Bld) [#/Vol] 4.77 10*3/uL 3.73 - 10. 10 K/uL [facility] CHEM 7 (LYTES,BUN,CREA,GLUC) on 08-31-2023 Anion gap [Moles/Vol] 13 mmol/L Normal 7-17 [facility] Comment on above: Performed By: #### M GO, HFP, CHM7, FERIB, PROCAL ####[facility] (DEFAULT)[address] [place] [address] Chloride [Moles/Vol] 102 mmol/L Normal 98-108 [facility] Comment on above: Performed By: #### M GO, HFP, CHM7, FERIB, PROCAL ####[facility] (DEFAULT)[address] [place] [address] CO2 [Moles/Vol] 23 mmol/L Normal 21-31 [facility] Comment on above: Performed By: #### M GO, HFP, CHM7, FERIB, PROCAL ####[facility] (DEFAULT)[address] [place] [address] Creatinine [Mass/Vol] 1.37 mg/dL High 0.70-1.30 [facility] Comment on above: Performed By: #### M GO, HFP, CHM7, FERIB, PROCAL ####[facility] (DEFAULT)[address] [place] [address] GFR/1.73 sq M.predicted among non-blacks MDRD (S/P/Bld) [Vol rate/Area] 62 mL/min/{1.73_m2} Normal >=60 [facility] Comment on above: Result Comment: Repo rted eGFR is based on the CKD-EPI 2020 equation using creatinine, age, and sex. Performed By: #### M GO, HFP, CHM7, FERIB, PROCAL ####[facility] (DEFAULT)[address] [place] [address] Glucose [Mass/Vol] 112 mg/dL High 70-99 [facility] Comment on above: Performed By: #### M GO, HFP, CHM7, FERIB, PROCAL ####[facility] (DEFAULT)[address] [place] [address] Osmolality [Osmolality] 284 mosm/kg Normal 278-305 [facility] Comment on above: Performed By: #### M GO, HFP, CHM7, FERIB, PROCAL ####[facility] (DEFAULT)[address] [place] [address] Potassium [Moles/Vol] 4.4 mmol/L Normal 3.5-5.0 [facility] Comment on above: Performed By: #### M GO, HFP, CHM7, FERIB, PROCAL ####[facility] (DEFAULT)[address] [place] [address] Sodium [Moles/Vol] 134 mmol/L Low 135-145 [facility] Comment on above: Performed By: #### M GO, HFP, CHM7, FERIB, PROCAL ####[facility] (DEFAULT)[address] [place] [address] Urea nitrogen [Mass/Vol] 16 mg/dL Normal 7-25 [facility] Comment on above: Performed By: #### M GO, HFP, CHM7, FERIB, PROCAL ####[facility] (DEFAULT)[address] [place] [address] Urea nitrogen/Creatinine [Mass ratio] 12 mg/mg Normal [facility] Comment on above: Performed By: #### M GO, HFP, CHM7, FERIB, PROCAL ####[facility] (DEFAULT)[address] [place] [address] Anion gap [Moles/Vol] 13 mmol/L 7 - 17 mmol/L [facility] Chloride [Moles/Vol] 102 mmol/L 98 - 10 8 mmol/L [facility] CO2 [Moles/Vol] 23 mmol/L 21 - 31 mmol/L [facility] Creatinine [Mass/Vol] 1.37 mg/dL High 0.70 - 1.30 mg/dL [facility] eGFR, CKD-EPI, Male 62 - [facility]F [facility] Glucose [Mass/Vol] 112 mg/dL High 70 - 99 mg/dL [facility] Osmolality Calc [Osmolality] 284 [facility] Potassium [Moles/Vol] 4.4 mmol/L 3.5 - 5.0 mmol/L [facility] Sodium [Moles/Vol] 134 mmol/L Low 135 - 145 mmol/L [facility] Urea nitrogen [Mass/Vol] 16 mg/dL 7 - 25 mg/dL [facility] Urea nitrogen/Creatinine [Mass ratio] 12 mg/mg [facility] CT ABDOMEN/PELVIS WITHOUT CO NTRASTon 08-31-2023 CT ABDOMEN/PELVIS WITHOUT CONTRAST Normal [facility] CT Abdomen and Pelvis WO con traston 08-31-2023 RADIOLOGY RADIOLOGY [facility] Radiology Study observation (narrative) [facility] CT Abdomen and Pelvis WO con trastOrdered By: Chavez Larkin on 08-31-2023 [facility] Work Phone: CT CHEST WITHOUT CONTRASTon 08-31-2023 CT CHEST WITHOUT CONTRAST Normal [facility] CT Chest WO contraston 08-31 RADIOLOGY RADIOLOGY [facility] Radiology Study observation (narrative) [facility] CT Chest WO contrastOrdered By: Daisha Patterson on 08-31-2023 [facility] Work Phone: FERRITINon 08-31-2023 Ferritin [Mass/Vol] 409.0 ng/mL High 10.5 - 3 07.3 ng/mL [facility] Interpretation and review of laboratory results Abnormal [facility] Ferritin [Mass/Vol] 409.0 ng/mL High 10.5-307.3 [facility] Comment on above: Performed By: #### M TAVO BLOOM, CHM7, ANG DOMINIQUE ####[facility] (DEFAULT)[address] [place] [address] HEPATIC FUNCTION PANELon Albumin [Mass/Vol] 3.3 g/dL Low 3.5-5.0 [facility] Comment on above: Performed By: #### M GO, HFP, CHM7, FERIB, PROCAL ####[facility] (DEFAULT)[address] [place] [address] ALP [Catalytic activity/Vol] 113 U/L Normal 32-126 [facility] Comment on above: Performed By: #### M GO, HFP, CHM7, FERIB, PROCAL ####[facility] (DEFAULT)[address] [place] [address] ALT [Catalytic activity/Vol] 25 U/L Normal 10-52 [facility] Comment on above: Performed By: #### M GO, HFP, CHM7, FERIB, PROCAL ####[facility] (DEFAULT)[address] [place] [address] AST [Catalytic activity/Vol] 31 U/L Normal 10-39 [facility] Comment on above: Performed By: #### M GO, HFP, CHM7, FERIB, PROCAL ####[facility] (DEFAULT)[address] [place] [address] Bilirubin [Mass/Vol] 1.1 mg/dL Normal <1.5 [facility] Comment on above: Performed By: #### M GO, HFP, CHM7, FERIB, PROCAL ####[facility] (DEFAULT)[address] [place] [address] Bilirubin.indirect [Mass/Vol] 0.3 mg/dL High <0.3 [facility] Comment on above: Performed By: #### M GO, HFP, CHM7, FERIB, PROCAL ####[facility] (DEFAULT)[address] [place] [address] Protein [Mass/Vol] 7.0 g/dL Normal 6.4-8.3 [facility] Comment on above: Performed By: #### M GO, HFP, CHM7, FERIB, PROCAL ####[facility] (DEFAULT)[address] [place] [address] Albumin [Mass/Vol] 3.3 g/dL Low 3.5 - 5.0 g/dL [facility] ALP [Catalytic activity/Vol] 113 U/L 32 - 126 U/L [facility] ALT [Catalytic activity/Vol] 25 U/L 10 - 52 U/L [facility] AST [Catalytic activity/Vol] 31 U/L 10 - 39 U/L [facility] Bilirubin [Mass/Vol] 1.1 mg/dL NINF - 1.5 mg/dL [facility] Bilirubin.direct [Mass/Vol] 0.3 mg/dL High NINF - 0.3 mg/dL [facility] Protein [Mass/Vol] 7.0 g/dL 6.4 - 8.3 g/dL [facility] LEGIONELLA URINARY AGon 10-0 Legionella Urinary Antigen Negative Normal Negative [facility] Comment on above: Performed By: #### L EGION ####[facility] (DEFAULT)[address] [place] [address] MAGNESIUMon 08-31-2023 Magnesium [Mass/Vol] 1.7 mg/dL Normal 1.6-2.6 [facility] Comment on above: Performed By: #### M GO, HFP, CHM7, FERIB, PROCAL ####[facility] (DEFAULT)[address] [place] [address] Interpretation and review of laboratory results Normal [facility] Magnesium [Mass/Vol] 1.7 mg/dL 1.6 - 2 .6 mg/dL [facility] No Panel Informationon 08-31 Interpretation and review of laboratory results Abnormal [facility] PROCALCITONINon 08-31-2023 Interpretation and review of laboratory results Normal [facility] Procalcitonin [Mass/Vol] 0.23 ng/mL NINF - 0.50 ng/mL [facility] Procalcitonin 0.23 ng/mL Normal <0.50 [facility] Comment on above: Result Comment: Proc [...] and trend procalcitonin in various clinical settings. [email or web address]/[email or web address]?[email or web address]=/departments/[email or web address] [email or web address]&action=[email or web address] common cutoffs associated with bacterial infections are as follows.Respiratory tract infections: >0.25 ng/mLSepsis/septic shock: >0.5 ng/mLProcalcitonin should not be used alone as a diagnostic tool, however. All procalcitonin results should be interpreted in association with the patients clinical condition and all laboratory findings. Performed By: #### M GO, HFP, CHM7, FERIB, PROCAL ####[facility] (DEFAULT)[address] [place] [address] TACROLIMUS LEVEL, TROUGH (OR E DRUG LEVEL)Ordered By: Yanira Marcum on 08-31-2023 Interpretation and review of laboratory results Normal [facility] Tacrolimus (Bld) [Mass/Vol] 5.9 ng/mL [facility] TACROLIMUS LEVEL, TROUGH (OR E DRUG LEVEL)on 08-31-2023 Tacrolimus, Trough 5.9 ng/mL Normal Bone Susana ow Transplant: 4.0-12.0, Therapeutic: 5.0-15.0 [facility] Comment on above: Order Comment: Pleas e draw at specified interval PRIOR to dose. Do not hold dose to wait for level. Specimens batched twice per day, (M-F) and once per day weekendsMethod performed is a chemiluminescent microparticle immunoasssay on the F[employer] Appraisal Analyst i2000.The range is based on experience at [facility] and users should be aware that target concentrations vary widely depending on concomitant therapy, time post-transplant, and desired degree of immunosuppression. Performed By: #### T ACRO ####[facility] (DEFAULT)[address] [place] [address] URINE CULTUREOrdered By: Jorge crowe Held on 08-31-2023 Bacteria identified Cx Nom (Unsp spec) No Growth [facility] DARYL AURIS SCREEN BY PCRO rdered By: Mynor Alejandro on 08-30-2023 Daryl auris Screen by PCR Not detected Not Detected [facility] Interpretation and review of laboratory results Normal [facility] CBC,PLATELETSon 08-30-2023 Hematocrit (Bld) [Volume fraction] 41.3 % Normal 39.6-48.8 [facility] Comment on above: Performed By: #### H EMOGC ####[facility] (DEFAULT)[address] [place] [address], [place] [address] Hemoglobin (Bld) [Mass/Vol] 13.2 g/dL Low 13.4-16.8 [facility] Comment on above: Performed By: #### H EMOGC ####[facility] (DEFAULT)[address] [place] [address] MCV (RBC) [Entitic vol] 85.5 fL Normal 79.0-94.5 [facility] Comment on above: Performed By: #### H EMOGC ####[facility] (DEFAULT)[address] [place] [address] Mean Cell Hgb 27.3 pg Normal 26.1-33.3 [facility] Comment on above: Performed By: #### H EMOGC ####[facility] (DEFAULT)[address] [place] [address] Mean Cell Hgb Conc 32.0 g/dL Normal 31.9-36.5 [facility] Comment on above: Performed By: #### H EMOGC ####[facility] (DEFAULT)[address] [place] [address] Platelet mean volume (Bld) [Entitic vol] 9.2 fL Normal 8.7-12.3 [facility] Comment on above: Performed By: #### H EMO ####[facility] (DEFAULT)[address] [place] [address] Platelets (Bld) [#/Vol] 235 10*3/uL Normal 146-337 [facility] Comment on above: Performed By: #### H EMO ####[facility] (DEFAULT)[address] [place] [address] RBC (Bld) [#/Vol] 4.83 10*6/uL Normal 4.38-5.83 [facility] Comment on above: Performed By: #### H EMO ####[facility] (DEFAULT)[address] [place] [place] [address] RBC Distribution 13.3 % Normal 10.9-14.3 [facility] Comment on above: Performed By: #### H EMO ####[facility] (DEFAULT)[address] [facility] [place] [address] WBC (Bld) [#/Vol] 4.96 10*3/uL Normal 3.73-10.10 [facility] Comment on above: Performed By: #### H EMO ####[facility] (DEFAULT)[address] [place] [address] Erythrocyte distribution width (RBC) [Ratio] 13.3 % 10.9 - 14.3 % [facility] Hematocrit (Bld) [Volume fraction] 41.3 % 39.6 - 48.8 % [facility] Hemoglobin (Bld) [Mass/Vol] 13.2 g/dL Low 13.4 - 16.8 g/dL [facility] Interpretation and review of laboratory results Abnormal [facility] MCH (RBC) [Entitic mass] 27.3 pg 26.1 - 33.3 pg [facility] MCHC (RBC) [Mass/Vol] 32.0 g/dL 31.9 - 36.5 g/dL [facility] MCV (RBC) [Entitic vol] 85.5 fL 79.0 - 94.5 fL [facility] Platelet mean volume (Bld) [Entitic vol] 9.2 fL 8.7 - 12.3 fL [facility] Platelets (Bld) [#/Vol] 235 10*3/uL 146 - 337 K/uL [facility] RBC (Bld) [#/Vol] 4.83 10*6/uL [facility] WBC (Bld) [#/Vol] 4.96 10*3/uL 3.73 - 10. 10 K/uL [facility] CHEM 7 (LYTES,BUN,CREA,GLUC) on 08-30-2023 Anion gap [Moles/Vol] 14 mmol/L Normal 7-17 [facility] Comment on above: Performed By: #### Rod BLOOM CHM7, HFP ####[facility] (DEFAULT)[address] [place] [address] Chloride [Moles/Vol] 102 mmol/L Normal 98-108 [facility] Comment on above: Performed By: #### Rod BLOOM CHM7, HFP ####[facility] (DEFAULT)[address] [place] [address] CO2 [Moles/Vol] 20 mmol/L Low 21-31 [facility] Comment on above: Performed By: #### Rod BLOOM CHM7, HFP ####[facility] (DEFAULT)[address] [place] [address] Creatinine [Mass/Vol] 1.56 mg/dL High 0.70-1.30 [facility] Comment on above: Performed By: #### Rod BLOOM CHM7, HFP ####[facility] (DEFAULT)[address] [place] [address] GFR/1.73 sq M.predicted among non-blacks MDRD (S/P/Bld) [Vol rate/Area] 53 mL/min/{1.73_m2} Low >=60 [facility] Comment on above: Result Comment: Repo rted eGFR is based on the CKD-EPI 2020 equation using creatinine, age, and sex. Performed By: #### NATHANIEL RAMÍREZ, HFP ####[facility] (DEFAULT)[address] [place] [address] Glucose [Mass/Vol] 123 mg/dL High 70-99 [facility] Comment on above: Performed By: #### NATHANIEL RAMÍREZ, HFP ####[facility] (DEFAULT)[address] [place] [address] Osmolality [Osmolality] 281 mosm/kg Normal 278-305 [facility] Comment on above: Performed By: #### NATHANIEL RAMÍREZ, HFP ####[facility] (DEFAULT)[address] [place] [address] Potassium [Moles/Vol] 4.3 mmol/L Normal 3.5-5.0 [facility] Comment on above: Performed By: #### NATHANIEL RAMÍREZ, HFP ####[facility] (DEFAULT)[address] [place] [address] Sodium [Moles/Vol] 132 mmol/L Low 135-145 [facility] Comment on above: Performed By: #### NATHANIEL RAMÍREZ, HFP ####[facility] (DEFAULT)[address] [place] [address] Urea nitrogen [Mass/Vol] 16 mg/dL Normal 7-25 [facility] Comment on above: Performed By: #### NATHANIEL RAMÍREZ, HFP ####[facility] (DEFAULT)[address] [place] [address] Urea nitrogen/Creatinine [Mass ratio] 10 mg/mg Normal [facility] Comment on above: Performed By: #### M TJ BLOOM7, HFP ####[facility] (DEFAULT)[address] [place] [address] Anion gap [Moles/Vol] 14 mmol/L 7 - 17 mmol/L [facility] Chloride [Moles/Vol] 102 mmol/L 98 - 10 8 mmol/L [facility] CO2 [Moles/Vol] 20 mmol/L Low 21 - 31 mmol/L [facility] Creatinine [Mass/Vol] 1.56 mg/dL High 0.70 - 1.30 mg/dL [facility] eGFR, CKD-EPI, Male 53 Low - PINF [facility] Glucose [Mass/Vol] 123 mg/dL High 70 - 99 mg/dL [facility] Osmolality Calc [Osmolality] 281 [facility] Potassium [Moles/Vol] 4.3 mmol/L 3.5 - 5.0 mmol/L [facility] Sodium [Moles/Vol] 132 mmol/L Low 135 - 145 mmol/L [facility] Urea nitrogen [Mass/Vol] 16 mg/dL 7 - 25 mg/dL [facility] Urea nitrogen/Creatinine [Mass ratio] 10 mg/mg [facility] EXTRA MICROon 08-30-2023 [facility] HEPATIC FUNCTION PANELon Albumin [Mass/Vol] 3.7 g/dL Normal 3.5-5.0 [facility] Comment on above: Performed By: #### M TJ BLOOM7, HFP ####[facility] (DEFAULT)[address] [place] [address] ALP [Catalytic activity/Vol] 115 U/L Normal 32-126 [facility] Comment on above: Performed By: #### M TJ BLOOM7, HFP ####[facility] (DEFAULT)[address] [place] [address] ALT [Catalytic activity/Vol] 22 U/L Normal 10-52 [facility] Comment on above: Performed By: #### M MERLE CHM7, HFP ####[facility] (DEFAULT)[address] [place] [address] AST [Catalytic activity/Vol] 34 U/L Normal 10-39 [facility] Comment on above: Performed By: #### M MERLE CHM7, HFP ####[facility] (DEFAULT)[address] [place] [address] Bilirubin [Mass/Vol] 1.2 mg/dL Normal <1.5 [facility] Comment on above: Performed By: #### M TJ BLOOM7, HFP ####[facility] (DEFAULT)[address] [place] [address] Bilirubin.indirect [Mass/Vol] 0.3 mg/dL High <0.3 [facility] Comment on above: Performed By: #### Rod BLOOM CHM7, HFP ####[facility] (DEFAULT)[address] [place] [address] Protein [Mass/Vol] 7.7 g/dL Normal 6.4-8.3 [facility] Comment on above: Performed By: #### M MERLE CHM7, HFP ####[facility] (DEFAULT)[address] [place] [address] Albumin [Mass/Vol] 3.7 g/dL 3.5 - 5.0 g/dL [facility] ALP [Catalytic activity/Vol] 115 U/L 32 - 126 U/L [facility] ALT [Catalytic activity/Vol] 22 U/L 10 - 52 U/L [facility] AST [Catalytic activity/Vol] 34 U/L 10 - 39 U/L [facility] Bilirubin [Mass/Vol] 1.2 mg/dL NINF - 1.5 mg/dL [facility] Bilirubin.direct [Mass/Vol] 0.3 mg/dL High NINF - 0.3 mg/dL [facility] Protein [Mass/Vol] 7.7 g/dL 6.4 - 8.3 g/dL [facility] MAGNESIUMon 08-30-2023 Magnesium [Mass/Vol] 1.8 mg/dL Normal 1.6-2.6 [facility] Comment on above: Performed By: #### M GO, CHM7, [facility] ####[facility] (DEFAULT)[address] [place] [address] Interpretation and review of laboratory results Normal [facility] Magnesium [Mass/Vol] 1.8 mg/dL 1.6 - 2 .6 mg/dL [facility] No Panel Informationon 08-30 Interpretation and review of laboratory results Abnormal [facility] CBC,PLATELETSon 08-29-2023 Hematocrit (Bld) [Volume fraction] 37.6 % Low 39.6-48.8 [facility] Comment on above: Performed By: #### H [facility] ####[facility] (DEFAULT)[address] [place] [address] Hemoglobin (Bld) [Mass/Vol] 12.2 g/dL Low 13.4-16.8 [facility] Comment on above: Performed By: #### H EMO ####[facility] (DEFAULT)[address] [place] [address] MCV (RBC) [Entitic vol] 85.1 fL Normal 79.0-94.5 [facility] Comment on above: Performed By: #### H EMO ####[facility] (DEFAULT)[address] [place] [address] Mean Cell Hgb 27.6 pg Normal 26.1-33.3 [facility] Comment on above: Performed By: #### H EMO ####[facility] (DEFAULT)[address] [place] [address] Mean Cell Hgb Conc 32.4 g/dL Normal 31.9-36.5 [facility] Comment on above: Performed By: #### H EMO ####[facility] (DEFAULT)[address] [place] [address] Platelet mean volume (Bld) [Entitic vol] 9.4 fL Normal 8.7-12.3 [facility] Comment on above: Performed By: #### H EMO ####[facility] (DEFAULT)[address] [place] [address] Platelets (Bld) [#/Vol] 233 10*3/uL Normal 146-337 [facility] Comment on above: Performed By: #### H EMO ####[facility] (DEFAULT)[address] [place] [address] RBC (Bld) [#/Vol] 4.42 10*6/uL Normal 4.38-5.83 [facility] Comment on above: Performed By: #### H EMO ####[facility] (DEFAULT)[address] [place] [address] RBC Distribution 13.4 % Normal 10.9-14.3 [facility] Comment on above: Performed By: #### H EMO ####[facility] (DEFAULT)[address] [place] [address] WBC (Bld) [#/Vol] 4.92 10*3/uL Normal 3.73-10.10 [facility] Comment on above: Performed By: #### H EMO ####[facility] (DEFAULT)[address] [place] [address] Erythrocyte distribution width (RBC) [Ratio] 13.4 % 10.9 - 14.3 % [facility] Hematocrit (Bld) [Volume fraction] 37.6 % Low 39.6 - 48.8 % [facility] Hemoglobin (Bld) [Mass/Vol] 12.2 g/dL Low 13.4 - 16.8 g/dL [facility] Interpretation and review of laboratory results Abnormal [facility] MCH (RBC) [Entitic mass] 27.6 pg 26.1 - 33.3 pg [facility] MCHC (RBC) [Mass/Vol] 32.4 g/dL 31.9 - 36.5 g/dL [facility] MCV (RBC) [Entitic vol] 85.1 fL 79.0 - 94.5 fL [facility] Platelet mean volume (Bld) [Entitic vol] 9.4 fL 8.7 - 12.3 fL [facility] Platelets (Bld) [#/Vol] 233 10*3/uL 146 - 337 K/uL [facility] RBC (Bld) [#/Vol] 4.42 10*6/uL [facility] WBC (Bld) [#/Vol] 4.92 10*3/uL 3.73 - 10. 10 K/uL [facility] CHEM 7 (LYTES,BUN,CREA,GLUC) on 08-29-2023 Anion gap [Moles/Vol] 13 mmol/L Normal 7-17 [facility] Comment on above: Performed By: #### M GO, CHM7, GGTB, HFP ####[facility] (DEFAULT)[address] [place] [address] Chloride [Moles/Vol] 105 mmol/L Normal 98-108 [facility] Comment on above: Performed By: #### M GO, CHM7, GGTB, HFP ####[facility] (DEFAULT)[address] [place] [address] CO2 [Moles/Vol] 20 mmol/L Low 21-31 [facility] Comment on above: Performed By: #### M GO, CHM7, GGTB, HFP ####[facility] (DEFAULT)[address] [place] [address] Creatinine [Mass/Vol] 1.55 mg/dL High 0.70-1.30 [facility] Comment on above: Performed By: #### M GO, CHM7, GGTB, HFP ####[facility] (DEFAULT)[address] [place] [address] GFR/1.73 sq M.predicted among non-blacks MDRD (S/P/Bld) [Vol rate/Area] 54 mL/min/{1.73_m2} Low >=60 [facility] Comment on above: Result Comment: Repo rted eGFR is based on the CKD-EPI 2020 equation using creatinine, age, and sex. Performed By: #### M GO, CHM7, GGTB, HFP ####[facility] (DEFAULT)[address] [place] [address] Glucose [Mass/Vol] 108 mg/dL High 70-99 [facility] Comment on above: Performed By: #### Rod GO, CHM7, GGTB, HFP ####[facility] (DEFAULT)[address] [place] [address] Osmolality [Osmolality] 283 mosm/kg Normal 278-305 [facility] Comment on above: Performed By: #### M GO, CHM7, GGTB, HFP ####[facility] (DEFAULT)[address] [place] [address] Potassium [Moles/Vol] 4.5 mmol/L Normal 3.5-5.0 [facility] Comment on above: Performed By: #### M GO, CHM7, GGTB, HFP ####[facility] (DEFAULT)[address] [place] [address] Sodium [Moles/Vol] 133 mmol/L Low 135-145 [facility] Comment on above: Performed By: #### M GO, CHM7, GGTB, HFP ####[facility] (DEFAULT)[address] [place] [address] Urea nitrogen [Mass/Vol] 19 mg/dL Normal 7-25 [facility] Comment on above: Performed By: #### M GO, CHM7, GGTB, HFP ####[facility] (DEFAULT)[address] [place] [address] Urea nitrogen/Creatinine [Mass ratio] 12 mg/mg Normal [facility] Comment on above: Performed By: #### M MERLE, CHM7, GGTB, HFP ####[facility] (DEFAULT)[address] [place] [address] Anion gap [Moles/Vol] 13 mmol/L 7 - 17 mmol/L [facility] Chloride [Moles/Vol] 105 mmol/L 98 - 10 8 mmol/L [facility] CO2 [Moles/Vol] 20 mmol/L Low 21 - 31 mmol/L [facility] Creatinine [Mass/Vol] 1.55 mg/dL High 0.70 - 1.30 mg/dL [facility] eGFR, CKD-EPI, Male 55 Low - [facility]F [facility] Glucose [Mass/Vol] 108 mg/dL High 70 - 99 mg/dL [facility] Osmolality Calc [Osmolality] 283 [facility] Potassium [Moles/Vol] 4.5 mmol/L 3.5 - 5.0 mmol/L [facility] Sodium [Moles/Vol] 133 mmol/L Low 135 - 145 mmol/L [facility] Urea nitrogen [Mass/Vol] 19 mg/dL 7 - 25 mg/dL [facility] Urea nitrogen/Creatinine [Mass ratio] 12 mg/mg [facility] GGTon 08-29-2023 Gamma glutamyl transferase [Catalytic activity/Vol] 64 U/L 8 - 64 U/L [facility] Interpretation and review of laboratory results Normal [facility] Gamma glutamyl transferase [Catalytic activity/Vol] 64 U/L Normal 8-64 [facility] Comment on above: Performed By: #### M MERLE, CHM7, GGTB, HFP ####[facility] (DEFAULT)[address] [place] [address] HEPATIC FUNCTION PANELon Albumin [Mass/Vol] 3.3 g/dL Low 3.5-5.0 [facility] Comment on above: Performed By: #### M GO, CHM7, GGTB, HFP ####[facility] (DEFAULT)[address] [place] [address] ALP [Catalytic activity/Vol] 103 U/L Normal 32-126 [facility] Comment on above: Performed By: #### M GO, CHM7, GGTB, HFP ####[facility] (DEFAULT)[address] [place] [address] ALT [Catalytic activity/Vol] 18 U/L Normal 10-52 [facility] Comment on above: Performed By: #### M GO, CHM7, GGTB, HFP ####[facility] (DEFAULT)[address] [place] [address] AST [Catalytic activity/Vol] 27 U/L Normal 10-39 [facility] Comment on above: Performed By: #### M GO, CHM7, GGTB, HFP ####[facility] (DEFAULT)[address] [place] [address] Bilirubin [Mass/Vol] 1.1 mg/dL Normal <1.5 [facility] Comment on above: Performed By: #### M GO, CHM7, GGTB, HFP ####[facility] (DEFAULT)[address] [place] [address] Bilirubin.indirect [Mass/Vol] 0.3 mg/dL High <0.3 [facility] Comment on above: Performed By: #### M GO, CHM7, GGTB, HFP ####[facility] (DEFAULT)[address] [place] [address] Protein [Mass/Vol] 6.8 g/dL Normal 6.4-8.3 [facility] Comment on above: Performed By: #### M GO, CHM7, GGTB, HFP ####[facility] (DEFAULT)[address] [place] [address] Albumin [Mass/Vol] 3.3 g/dL Low 3.5 - 5.0 g/dL [facility] ALP [Catalytic activity/Vol] 103 U/L 32 - 126 U/L [facility] ALT [Catalytic activity/Vol] 18 U/L 10 - 52 U/L [facility] AST [Catalytic activity/Vol] 27 U/L 10 - 39 U/L [facility] Bilirubin [Mass/Vol] 1.1 mg/dL [facility] mg/dL [facility] Bilirubin.direct [Mass/Vol] 0.3 mg/dL High NINF - 0.3 mg/dL [facility] Protein [Mass/Vol] 6.8 g/dL 6.4 - 8.3 g/dL [facility] HISTOPLASMA AND BLASTOMYCES ANTIGEN, ENZYME IMMUNOASSAY, SERMon 08-29-2023 Histoplasma/Blastomy antonia Ag Result Detected Invalid Interpretation Code Not Detected [facility] Comment on above: Result Comment: Anti gen from Histoplasma or Blastomyces (unable todifferentiate) detected. Result should be correlated withclinical presentation, exposure history, and otherdiagnostic procedures, including culture, serology,histopathology, and/or radiographic findings, to aid in thedifferentiation between histoplasmosis and blastomycosis.CRITICAL RESULT Performed By: #### H IBAG ####[facility] (DEFAULT)[address] [place] [address] Histoplasma/Blastomy antonia Ag Value 5.3 ng/mL Normal [facility] Comment on above: Result Comment: ---- ADDITIONAL INFORMATION This test was developed and its performance characteristicsdetermined by [facility] in a manner consistent with CLIArequirements. This test has not been cleared or approved bythe U.S. Food and Drug Administration.Test Performed by:[facility] - [address] [address]Xdi Director: Rosendo Bose M.D. Ph.D.; CLIA# [id number] Performed By: #### H IBAG ####[facility] (DEFAULT)[address] [place] [address], [place] [address] HISTOPLASMA ANTIGEN,URINEon 08-29-2023 HISTOPLASM AG, URINE Not detected Normal Not Detected [facility] Comment on above: Result Comment: No H istoplasma antigen detected.False negative results may occur. Repeat testing on anew specimen should be considered if clinically indicated. Performed By: #### Y HISTG ####[facility] (DEFAULT)[address] [place] [address], [place] [address] Histoplasma Ag Value Not detected Normal [facility] Comment on above: Result Comment: ---- ADDITIONAL INFORMATION This test has been modified from the crts'sinstructions. Its performance characteristics weredetermined by [facility] in a manner consistent withCLIA requirements. This test has not been cleared orapproved by the U.S. Food and Drug Administration.Test Performed by:[address] [address] Director: Rosendo Bose M.D. Ph.D.; CLIA# [id number] Performed By: #### Y HISTG ####[facility] (DEFAULT)[address] [place] [address] MAGNESIUMon 08-29-2023 Magnesium [Mass/Vol] 1.7 mg/dL Normal 1.6-2.6 [facility] Comment on above: Performed By: #### M GO, CHM7, GGTB, HFP ####[facility] (DEFAULT)[address] [place] [address] Interpretation and review of laboratory results Normal [facility] Magnesium [Mass/Vol] 1.7 mg/dL 1.6 - 2 .6 mg/dL [facility] No Panel Informationon 08-29 Interpretation and review of laboratory results Abnormal [facility] PT,INR,PTTon 08-29-2023 aPTT Coag (Bld) [Time] 29.3 s Normal 24.0-34.3 [facility] Comment on above: Performed By: #### P TPTT ####[facility] (DEFAULT)[address] [place] [address] INR Coag (PPP) [Relative time] 1.1 {INR} Normal 0.9-1.1 [facility] Comment on above: Performed By: #### P TPTT ####[facility] (DEFAULT)[address] [place] [address] PT Coag (PPP) [Time] 13.8 s Normal 11.9-14.2 [facility] Comment on above: Performed By: #### P TPTT ####[facility] (DEFAULT)[address] [place] [address] aPTT Coag (PPP) [Time] 29.3 s [facility] INR Coag (Bld) [Relative time] 1.1 {INR} 0.9 - 1.1 [facility] Interpretation and review of laboratory results Normal [facility] PT Coag (PPP) [Time] 13.8 s [facility] Portable XR Chest Viewson RADIOLOGY RADIOLOGY [facility] Portable XR Chest ViewsOrder ed By: Gerald Baer on 08-29-2023 [facility] Work Phone: TACROLIMUS LEVEL, TROUGH (OR E DRUG LEVEL)on 08-29-2023 Interpretation and review of laboratory results Normal [facility] Tacrolimus (Bld) [Mass/Vol] 8.9 ng/mL [facility] Tacrolimus, Trough 8.9 ng/mL Normal Bone Susana ow Transplant: 4.0-12.0, Therapeutic: 5.0-15.0 [facility] Comment on above: Order Comment: Pleas e draw at specified interval PRIOR to dose. Do not hold dose to wait for level. Specimens batched twice per day, (M-F) and once per day weekendsMethod performed is a chemiluminescent microparticle immunoasssay on the [employer] i2000.The range is based on experience at [facility] and users should be aware that target concentrations vary widely depending on concomitant therapy, time post-transplant, and desired degree of immunosuppression. Performed By: #### T ACRO ####[facility] (DEFAULT)[address] [place] [address] Tacrolimus, Trough 8.7 ng/mL Normal Bone Susana ow Transplant: 4.0-12.0, Therapeutic: 5.0-15.0 [facility] Comment on above: Order Comment: Pleas e draw at specified interval PRIOR to dose. Do not hold dose to wait for level. Specimens batched twice per day, (M-F) and once per day weekendsMethod performed is a chemiluminescent microparticle immunoasssay on the [employer] i2000.The range is based on experience at [facility] and users should be aware that target concentrations vary widely depending on concomitant therapy, time post-transplant, and desired degree of immunosuppression. Performed By: #### T ACRO ####[facility] (DEFAULT)[address] [place] [address] TACROLIMUS LEVEL, TROUGH (OR E DRUG LEVEL)Ordered By: Roxanne Louie on 08-29-2023 Interpretation and review of laboratory results Normal [facility] Tacrolimus (Bld) [Mass/Vol] 8.7 ng/mL [facility] URINALYSIS REFLEX TO CULTURE PERFORMABLEon 08-29-2023 Appearance (U) Clear Normal Clear [facility] Comment on above: Order Comment: For i ndwelling catheters, specimen collection is acceptable on catheter day 1 and 2 only. ? Performed By: #### U [id number] ####[facility] (DEFAULT)[address] [place] [address] Bacteria ABSENT Normal ABSENT [facility] Comment on above: Order Comment: For i ndwelling catheters, specimen collection is acceptable on catheter day 1 and 2 only. ? Performed By: #### U [id number] ####[facility] (DEFAULT)[address] [place] [address] Blood Urine Trace Abnormal Negative [facility] Comment on above: Order Comment: For i ndwelling catheters, specimen collection is acceptable on catheter day 1 and 2 only. ? Performed By: #### U [id number] ####[facility] (DEFAULT)[address] [place] [address] Calcium Oxalate Crystals PRESENT Normal [facility] Comment on above: Order Comment: For i ndwelling catheters, specimen collection is acceptable on catheter day 1 and 2 only. ? Performed By: #### U [id number] ####[facility] (DEFAULT)[address] [place] [address] Color (U) Yellow Normal Yellow [facility] Comment on above: Order Comment: For i ndwelling catheters, specimen collection is acceptable on catheter day 1 and 2 only. ? Performed By: #### U [id number] ####[facility] (DEFAULT)[address] [place] [address] Glucose Ql (U) Negative Normal Negative [facility] Comment on above: Order Comment: For i ndwelling catheters, specimen collection is acceptable on catheter day 1 and 2 only. ? Performed By: #### U [id number] ####[facility] (DEFAULT)[address] [place] [address] Ketones Ql (U) Negative Normal Negative [facility] Comment on above: Order Comment: For i ndwelling catheters, specimen collection is acceptable on catheter day 1 and 2 only. ? Performed By: #### U [id number] ####[facility] (DEFAULT)[address] [place] [address] Leukocyte esterase Test strip Ql (U) Negative Normal Negative [facility] Comment on above: Order Comment: For i ndwelling catheters, specimen collection is acceptable on catheter day 1 and 2 only. ? Performed By: #### U [id number] ####[facility] (DEFAULT)[address] [place] [address] Nitrites Urine Negative Normal Negative [facility] Comment on above: Order Comment: For i ndwelling catheters, specimen collection is acceptable on catheter day 1 and 2 only. ? Performed By: #### U [id number] ####[facility] (DEFAULT)[address] [place], [place] [address], [place] [address] pH (U) 6.0 [pH] Normal 5.0-7.0 [facility] Comment on above: Order Comment: For i ndwelling catheters, specimen collection is acceptable on catheter day 1 and 2 only. ? Performed By: #### U [id number] ####[facility] (DEFAULT)[address] [place] [address] Protein Urine Negative Normal Negative [facility] Comment on above: Order Comment: For i ndwelling catheters, specimen collection is acceptable on catheter day 1 and 2 only. ? Performed By: #### U [id number] ####[facility] (DEFAULT)[address] [place], [place] [address], [place] [address] RBC Urine 3-5 Abnormal 0-2 [facility] Comment on above: Order Comment: For i ndwelling catheters, specimen collection is acceptable on catheter day 1 and 2 only. ? Performed By: #### U [id number] ####[facility] (DEFAULT)[address] [place], [place] [address], [place] [address] Specific [place] Urine 1.015 Normal 1.001-1.035 [facility] Comment on above: Order Comment: For i ndwelling catheters, specimen collection is acceptable on catheter day 1 and 2 only. ? Performed By: #### U [id number] ####[facility] (DEFAULT)[address] [place], [place] [address], [place] [address] Squamous/Epithelial Cells 0-2/hpf Normal 0-2/hpf, 3-5/hpf = 1+ [facility] Comment on above: Order Comment: For i ndwelling catheters, specimen collection is acceptable on catheter day 1 and 2 only. ? Performed By: #### U [id number] ####U [facility] (DEFAULT)[address] [place] [address] Urobilinogen Urine 1.0 E.U./dL Normal 0.2 E.U/d L, 1.0 E.U/dL [facility] Comment on above: Order Comment: For i ndwelling catheters, specimen collection is acceptable on catheter day 1 and 2 only. ? Performed By: #### U [id number] ####U [facility] (DEFAULT)[address] [facility] [place] [place] [address] WBC Urine 0 - 5 Normal 0 - 5 [facility] Comment on above: Order Comment: For i ndwelling catheters, specimen collection is acceptable on catheter day 1 and 2 only. ? Performed By: #### U [id number] ####U [facility] (DEFAULT)[address] [place] [address] URINALYSIS REFLEX TO CULTURE PERFORMABLEOrdered By: Shaji Kelly on 08-29-2023 Appearance (U) Clear Clear U [facility] Bacteria LM Ql (Urine sed) ABSENT ABSENT [facility] Calcium Oxalate Crystals PRESENT U [facility] Color (U) Yellow Yellow U [facility] Epithelial cells.squamous LM Ql (Urine sed) 0-2/hpf 0-2/hpf, 3-5/hpf = 1+ [facility] Glucose Test strip (U) [Mass/Vol] Negative Negative [facility] Interpretation and review of laboratory results Abnormal [facility] Ketones (U) [Mass/Vol] Negative Negative [facility] Leukocyte esterase Test strip Ql (U) Negative Negative [facility] Nitrite Ql (U) Negative Negative [facility] pH (U) 6.0 [pH] 5.0 - 7.0 [facility] Protein (U) [Mass/Vol] Negative Negative [facility] RBC (U) [#/Vol] Trace Abnormal [facility] RBC LM.HPF (Urine sed) [#/Area] 3-5 Abnormal [facility] Specific gravity (U) [Rel density] 1.015 1.001 - 1.035 [facility] Urobilinogen (U) [Mass/Vol] 1.0 E.U./dL 0.2 E.U/dL, 1.0 E.U/dL [facility] WBC LM.HPF (Urine sed) [#/Area] 0 - 5 [facility] URINE CULTUREon 08-29-2023 Bacteria identified Cx Nom (U) No Growth Normal [facility] Comment on above: Order Comment: For i ndwelling catheters, specimen collection is acceptable on catheter day 1 and 2 only. Sung top vacutainer. Urine must be to the fill line to process (4mls). If minimum volume, send urine in a yellow top vacutainer tube. Performed By: #### U R ####[facility] (DEFAULT)[address] [place] [address] US RENAL TRANSPLANT SCANon 0 08-29-2023 US RENAL TRANSPLANT SCAN Normal [facility] US for transplanted kidney l imitedon 08-29-2023 RADIOLOGY RADIOLOGY [facility] Radiology Study observation (narrative) [facility] US for transplanted kidney l imitedOrdered By: Romana Matias on 08-29-2023 [facility] Work Phone: XR CHEST PORTABLEon 08-29-20 23 XR CHEST PORTABLE Normal [place] BLOOD CULTUREon 08-28-2023 Bacteria identified Cx Nom (Unsp spec) NO GROWTH DAY 5 OF 5 Normal [facility] Comment on above: Order Comment: 2 Bot tles (1 Set - consists of 1 Aerobic bottle and 1 Anaerobic bottle) -1st Peripheral DrawFor syringe method draw:If able to obtain adequate sample (20 ml) inoculate anaerobic bottle firstIf inadequate sample obtained (less than 20 ml) inoculate aerobic bottle firstFor vacutainer method draw: Fill aerobic bottle first, then anaerobic Performed By: #### B LDCULT ####[facility] (DEFAULT)[address] [place] [address] Bacteria identified Cx Nom (Unsp spec) NO GROWTH DAY 5 OF 5 Normal [facility] Comment on above: Order Comment: 2 Bot tles (1 Set - consists of 1 Aerobic bottle and 1 Anaerobic bottle) -1st Peripheral DrawFor syringe method draw:If able to obtain adequate sample (20 ml) inoculate anaerobic bottle firstIf inadequate sample obtained (less than 20 ml) inoculate aerobic bottle firstFor vacutainer method draw: Fill aerobic bottle first, then anaerobic Performed By: #### B LDCULT ####[facility] (DEFAULT)[address] [place] [address] DARYL AURIS SCREEN BY PCRo n 08-28-2023 Daryl auris Screen by PCR Not detected Normal Not Detected [facility] Comment on above: Order Comment: This test was performed using a real-time PCR assay. This test was developed, and its performance characteristics determined by [facility] at [facility]. It has not been cleared or approved by the FDA. The laboratory is regulated under CLIA as qualified to perform high-complexity testing. This test is used for clinical purposes. It should not be regarded as investigational or for research. Performed By: #### C ANDIDA AURIS SCREEN BY PCR ####[facility] (DEFAULT)[address] [place] [address] CBC AND ELECTRONIC DIFFon Abs Baso Auto < Normal 0.00-0.09 [facility] Comment on above: Performed By: #### L [id number] ####U [facility] (DEFAULT)[address] [place] [address] Basophils/100 WBC (Bld) 0.6 % Normal [facility] Comment on above: Performed By: #### L [id number] ####[facility] (DEFAULT)[address] [place] [address] DIFF STATUS Electronic Differential Normal [facility] Comment on above: Performed By: #### L [id number] ####[facility] (DEFAULT)[address] [place] [address] Eosinophils (Bld) [#/Vol] 0.10 10*3/uL Normal 0.00-0.48 [facility] Comment on above: Performed By: #### L [id number] ####[facility] (DEFAULT)[address] [place] [address] Eosinophils/100 WBC (Bld) 2.1 % Normal [facility] Comment on above: Performed By: #### L [id number] ####[facility] (DEFAULT)[address] [place] [address] Hematocrit (Bld) [Volume fraction] 37.9 % Low 39.6-48.8 [facility] Comment on above: Performed By: #### L [id number] ####[facility] (DEFAULT)[address] [place] [address], [place] [address] Hemoglobin (Bld) [Mass/Vol] 12.4 g/dL Low 13.4-16.8 [facility] Comment on above: Performed By: #### L [id number] ####[facility] (DEFAULT)[address] [place] [address], [place] [address] Immature Grans % 0.6 % Normal [facility] Comment on above: Performed By: #### L [id number] ####[facility] (DEFAULT)[address] [place] [address], [place] [address] Immature Grans Absolute < Normal <=0.07 [facility] Comment on above: Performed By: #### L [id number] ####[facility] (DEFAULT)[address] [place] [address] Lymphocytes (Bld) [#/Vol] 1.76 10*3/uL Normal 0.83-3.57 [facility] Comment on above: Performed By: #### L [id number] ####[facility] (DEFAULT)[address] [place] [address] Lymphocytes/100 WBC (Bld) 37.1 % Normal [facility] Comment on above: Performed By: #### L [id number] ####[facility] (DEFAULT)[address] [place] [address] MCV (RBC) [Entitic vol] 85.0 fL Normal 79.0-94.5 [facility] Comment on above: Performed By: #### L [id number] ####[facility] (DEFAULT)[address] [place] [address] Mean Cell Hgb 27.8 pg Normal 26.1-33.3 [facility] Comment on above: Performed By: #### L [id number] ####[facility] (DEFAULT)[address] [place] [address] Mean Cell Hgb Conc 32.7 g/dL Normal 31.9-36.5 [facility] Comment on above: Performed By: #### L [id number] ####[facility] (DEFAULT)[address] [place] [address] Monocytes (Bld) [#/Vol] 0.66 10*3/uL Normal 0.24-0.93 [facility] Comment on above: Performed By: #### L [id number] ####[facility] (DEFAULT)[address] [place] [address] Monocytes/100 WBC (Bld) 13.9 % Normal [facility] Comment on above: Performed By: #### L [id number] ####[facility] (DEFAULT)[address] [place] [address] Nucleated RBC 0.0 /100 WBC Normal <=0.2 [facility] Comment on above: Performed By: #### L [id number] ####[facility] (DEFAULT)[address] [place] [address] Platelet mean volume (Bld) [Entitic vol] 9.3 fL Normal 8.7-12.3 [facility] Comment on above: Performed By: #### L [id number] ####[facility] (DEFAULT)[address] [place] [address] Platelets (Bld) [#/Vol] 262 10*3/uL Normal 146-337 [facility] Comment on above: Performed By: #### L [id number] ####[facility] (DEFAULT)[address] [place] [address] RBC (Bld) [#/Vol] 4.46 10*6/uL Normal 4.38-5.83 [facility] Comment on above: Performed By: #### L [id number] ####[facility] (DEFAULT)[address] [place] [address] RBC Distribution 13.4 % Normal 10.9-14.3 [facility] Comment on above: Performed By: #### L [id number] ####[facility] (DEFAULT)[address] [place] [address] Segs + Bands Auto 45.7 % Normal [place] Comment on above: Performed By: #### L [id number] ####[facility] (DEFAULT)[address] [place] [address] Segs + Bands,Absolute Auto 2.16 K/uL Normal 1.57-6.19 [facility] Comment on above: Performed By: #### L [id number] ####[facility] (DEFAULT)[address] [place] [address] WBC (Bld) [#/Vol] 4.74 10*3/uL Normal 3.73-10.10 [facility] Comment on above: Performed By: #### L [id number] ####[facility] (DEFAULT)[address] [place] [address] Basophils (Bld) [#/Vol] K/uL 0.00 - 0.09 K/uL [facility] Basophils/100 WBC (Bld) 0.6 % [facility] Differential cell count method Nom (Bld) Electronic Differential [facility] Eosinophils (Bld) [#/Vol] 0.10 10*3/uL 0.00 - 0.48 K/uL [facility] Eosinophils/100 WBC (Bld) 2.1 % [facility] Erythrocyte distribution width (RBC) [Ratio] 13.4 % 10.9 - 14.3 % [facility] Hematocrit (Bld) [Volume fraction] 37.9 % Low 39.6 - 48.8 % [facility] Hemoglobin (Bld) [Mass/Vol] 12.4 g/dL Low 13.4 - 16.8 g/dL [facility] Immature granulocytes (Bld) [#/Vol] K/uL NINF - 0.07 K/uL [facility] Immature granulocytes/100 WBC (Bld) 0.6 % [facility] Interpretation and review of laboratory results Abnormal [facility] Lymphocytes (Bld) [#/Vol] 1.76 10*3/uL 0.83 - 3.57 K/uL [facility] Lymphocytes/100 WBC (Bld) 37.1 % [facility] MCH (RBC) [Entitic mass] 27.8 pg 26.1 - 33.3 pg [facility] MCHC (RBC) [Mass/Vol] 32.7 g/dL 31.9 - 36.5 g/dL [facility] MCV (RBC) [Entitic vol] 85.0 fL 79.0 - 94.5 fL [facility] Monocytes (Bld) [#/Vol] 0.66 10*3/uL 0.24 - 0.93 K/uL [facility] Monocytes/100 WBC (Bld) 13.9 % [facility] Neutrophils (Bld) [#/Vol] 2.16 10*3/uL 1.57 - 6.19 K/uL [facility] Nucleated RBC/100 WBC (Bld) [Ratio] 0.0 % [facility] Platelet mean volume (Bld) [Entitic vol] 9.3 fL 8.7 - 12.3 fL [facility] Platelets (Bld) [#/Vol] 262 10*3/uL 146 - 337 K/uL [facility] RBC (Bld) [#/Vol] 4.46 10*6/uL [facility] Segmented neutrophils/100 WBC (Bld) 45.7 % [facility] WBC (Bld) [#/Vol] 4.74 10*3/uL 3.73 - 10. 10 K/uL [facility] CHEM 6 (LYTES, BUN CREA)on 0 08-28-2023 Anion gap [Moles/Vol] 13 mmol/L Normal 7-17 [facility] Comment on above: Performed By: #### C HM6 ####[facility] (DEFAULT)[address] [place] [address] Chloride [Moles/Vol] 103 mmol/L Normal 98-108 [facility] Comment on above: Performed By: #### C HM6 ####[facility] (DEFAULT)[address] [place] [address] CO2 [Moles/Vol] 22 mmol/L Normal 21-31 [facility] Comment on above: Performed By: #### C HM6 ####[facility] (DEFAULT)[address] [place] [address] Creatinine [Mass/Vol] 1.62 mg/dL High 0.70-1.30 [facility] Comment on above: Performed By: #### C HM6 ####[facility] (DEFAULT)[address] [place] [address] GFR/1.73 sq M.predicted among non-blacks MDRD (S/P/Bld) [Vol rate/Area] 51 mL/min/{1.73_m2} Low >=60 [facility] Comment on above: Result Comment: Repo rted eGFR is based on the CKD-EPI 2020 equation using creatinine, age, and sex. Performed By: #### C HM6 ####[facility] (DEFAULT)[address] [place] [address] Potassium [Moles/Vol] 4.3 mmol/L Normal 3.5-5.0 [facility] Comment on above: Performed By: #### C HM6 ####[facility] (DEFAULT)[address] [place] [address] Sodium [Moles/Vol] 134 mmol/L Low 135-145 [facility] Comment on above: Performed By: #### C HM6 ####[facility] (DEFAULT)[address] [place] [address] Urea nitrogen [Mass/Vol] 22 mg/dL Normal 7-25 [facility] Comment on above: Performed By: #### C HM6 ####[facility] (DEFAULT)[address] [place] [address] Urea nitrogen/Creatinine [Mass ratio] 14 mg/mg Normal [facility] Comment on above: Performed By: #### C HM6 ####[facility] (DEFAULT)[address] [place] [address] Anion gap [Moles/Vol] 13 mmol/L 7 - 17 mmol/L [facility] Chloride [Moles/Vol] 103 mmol/L 98 - 10 8 mmol/L [facility] CO2 [Moles/Vol] 22 mmol/L 21 - 31 mmol/L [facility] Creatinine [Mass/Vol] 1.62 mg/dL High 0.70 - 1.30 mg/dL [facility] eGFR, CKD-EPI, Male 51 Low - PINF [facility] Interpretation and review of laboratory results Abnormal [facility] Potassium [Moles/Vol] 4.3 mmol/L 3.5 - 5.0 mmol/L [facility] Sodium [Moles/Vol] 134 mmol/L Low 135 - 145 mmol/L [facility] Urea nitrogen [Mass/Vol] 22 mg/dL 7 - 25 mg/dL [facility] Urea nitrogen/Creatinine [Mass ratio] 14 mg/mg [facility] IMMUNOCOMPROMISED RESPIRATOR Y PANELon 08-28-2023 Adenovirus - Pcr Not detected Normal Not Detected [facility] Comment on above: Order Comment: Viral [...] acid assay. Performed By: #### I CRESP ####[facility] (DEFAULT)[address] [place] [address] Bordetella Parapertussis Not detected Normal Not Detected [facility] Comment on above: Order Comment: Viral [...] acid assay. Performed By: #### I CRESP ####[facility] (DEFAULT)[address] [place] [address] Bordetella Pertussis Not detected Normal Not Detected [facility] Comment on above: Order Comment: Viral [...] acid assay. Performed By: #### I CRESP ####[facility] (DEFAULT)[address] [place] [address], [place] [address] Chlamydia Pneumoniae Not detected Normal Not Detected [facility] Comment on above: Order Comment: Viral [...] acid assay. Performed By: #### I CRESP ####[facility] (DEFAULT)[address] [place] [address], [place] [address] Coronavirus 229E Not detected Normal Not Detected [facility] Comment on above: Order Comment: Viral [...] acid assay. Performed By: #### I CRESP ####[facility] (DEFAULT)[address] [place] [address], [place] [address] Coronavirus Hku1 Not detected Normal Not Detected [facility] Comment on above: Order Comment: Viral [...] acid assay. Performed By: #### I CRESP ####[facility] (DEFAULT)[address] [place] [address] Coronavirus Nl63 Not detected Normal Not Detected [facility] Comment on above: Order Comment: Viral [...] acid assay. Performed By: #### I CRESP ####[facility] (DEFAULT)[address] [place] [address] Coronavirus Oc43 Not detected Normal Not Detected [facility] Comment on above: Order Comment: Viral [...] acid assay. Performed By: #### I CRESP ####[facility] (DEFAULT)[address] [place] [address] Influenza A - Pcr Not detected Normal Not Detected [facility] Comment on above: Order Comment: [...] acid assay. Performed By: #### I CRESP ####[facility] (DEFAULT)[address] [place] [address], [place] [address] Influenza B - Pcr Not detected Normal Not Detected [facility] Comment on above: Order Comment: [...] acid assay. Performed By: #### I CRESP ####[facility] (DEFAULT)[address] [place] [address], [place] [address] Metapneumovirus - Pcr Not detected Normal Not Detected [facility] Comment on above: Order Comment: Viral [...] acid assay. Performed By: #### I CRESP ####[facility] (DEFAULT)[address] [place] [address], [place] [address] Mycoplasma Pneumoniae Not detected Normal Not Detected [facility] Comment on above: Order Comment: Viral [...] acid assay. Performed By: #### I CRESP ####[facility] (DEFAULT)[address] [place] [address] Parainfluenza 1 - Pcr Not detected Normal Not Detected [facility] Comment on above: Order Comment: Viral [...] acid assay. Performed By: #### I CRESP ####[facility] (DEFAULT)[address] [place] [address], [place] [address] Parainfluenza 2 - Pcr Not detected Normal Not Detected [facility] Comment on above: Order Comment: Viral [...] acid assay. Performed By: #### I CRESP ####[facility] (DEFAULT)[address] [place] [address] Parainfluenza 3 - Pcr Not detected Normal Not Detected [facility] Comment on above: Order Comment: Viral [...] acid assay. Performed By: #### I CRESP ####[facility] (DEFAULT)[address] [place] [address] Parainfluenza 4 - Pcr Not detected Normal Not Detected [facility] Comment on above: Order Comment: Viral [...] acid assay. Performed By: #### I CRESP ####[facility] (DEFAULT)[address] [place] [address] Rhinovirus/Enterovir us - PCR Not detected Normal Not Detected [facility] Comment on above: Order Comment: Viral [...] acid assay. Performed By: #### I CRESP ####[facility] (DEFAULT)[address] [place] [address] [place] [address] Rsv - Pcr Not detected Normal Not Detected [facility] Comment on above: Order Comment: Viral [...] acid assay. Performed By: #### I CRESP ####[facility] (DEFAULT)[address] [place] [address] SARS-CoV-2 (COVID-19) RNA ESTELITA+probe Ql (Unsp spec) Not detected Normal NOT DETECTED [facility] Comment on above: Order Comment: Viral [...] acid assay. Performed By: #### I CRESP ####[facility] (DEFAULT)[address] [place] [address] Portable XR Chest Viewson Radiology Study observation (narrative) [facility] Respiratory virus DNA+RNA NA A+probe Nom (Unsp spec)Ordered By: Dayami Harris on 08-28-2023 Adenovirus DNA ESTELITA+probe Nom (Unsp spec) Not detected Not Detected [facility] B. parapertussis DNA ESTELITA+probe Ql (Unsp spec) Not detected Not Detected [facility] B. pertussis DNA ESTELITA+probe Ql (Unsp spec) Not detected Not Detected [facility] C. pneumoniae DNA ESTELITA+probe Ql (Unsp spec) Not detected Not Detected [facility] FLUAV RNA ESTELITA+probe Ql (Unsp spec) Not detected Not Detected [facility] [facility] FLUBV RNA ESTELITA+probe Ql (Unsp spec) Not detected Not Detected [facility] HCoV 229E RNA ESTELITA+non-probe Ql (Nph) Not detected Not Detected [facility] HCoV HKU1 RNA ESTELITA+non-probe Ql (Nph) Not detected Not Detected [facility] HCoV NL63 RNA ESTELITA+non-probe Ql (Nph) Not detected Not Detected [facility] HCoV OC43 RNA ESTELITA+non-probe Ql (Nph) Not detected Not Detected [facility] hMPV A RNA ESTELITA+probe Ql (Unsp spec) Not detected Not Detected [facility] Interpretation and review of laboratory results Normal [facility] M. pneumoniae DNA ESTELITA+probe Ql (Unsp spec) Not detected Not Detected [facility] Parainfluenza virus 1 RNA ESTELITA+probe Ql (Unsp spec) Not detected Not Detected [facility] Parainfluenza virus 2 RNA ESTELITA+probe Ql (Unsp spec) Not detected Not Detected [facility] Parainfluenza virus 3 RNA ESTELITA+probe Ql (Unsp spec) Not detected Not Detected [facility] Parainfluenza virus 4 RNA ESTELITA+probe Ql (Unsp spec) Not detected Not Detected [facility] Rhinovirus+Enterovir us RNA ESTELITA+probe Ql (Unsp spec) Not detected Not Detected [facility] RSV RNA ESTELITA+probe Ql (Unsp spec) Not detected Not Detected [facility] SARS-CoV-2 (COVID-19) RNA ESTELITA+probe Ql (Unsp spec) Not detected NOT DETECTED [facility] ALBUMINon 04-28-2023 Albumin [Mass/Vol] 4.0 g/dL Normal 3.4-5.0 [facility] Comment on above: Performed By: #### C MP #### [facility] [address] [address] [address] Dwight Waters ALKALINE PHOSPHAon ALP [Catalytic activity/Vol] 106 U/L Normal 46-116 [facility] Comment on above: Performed By: #### F [id number] #### [facility] [address] [address] [address] Dwight Waters BILIRUBIN CONJUGATED (DIRECT )on 04-28-2023 BILI, CONJUGATED 0.3 mg/dL Critically high 0.0-0.2 [facility] Comment on above: Performed By: #### C MP #### [facility] [address] [place] [address] Dr. Dwight Waters BILIRUBIN TOTALon 04-28-2023 Bilirubin [Mass/Vol] 1.4 mg/dL Critically high 0.2-1.0 [facility] Comment on above: Performed By: #### C MP #### [facility] [address] [place] [address] Dr. Dwight Waters BUNon 04-28-2023 Urea nitrogen [Mass/Vol] 12.0 mg/dL Normal 7.0-18.0 [facility] Comment on above: Performed By: #### U RTPCR #### [facility] [address] [place] [address] Dr. Dwight Waters CALCIUMon 04-28-2023 Calcium [Mass/Vol] 9.3 mg/dL Normal 8.5-10.1 [facility] Comment on above: Performed By: #### U RTPCR #### [facility] [address] [place] [address] Dr. Dwight Waters CBC AUTO DIFFon 04-28-2023 BASO # 0.1 103/ul Normal 0.0-0.1 [facility] Comment on above: Performed By: #### C BC #### [facility] [address] [place] [address] Dr. Dwight Waters Basophils/100 WBC (Bld) 0.9 % Normal 0.2-2.0 [facility] Comment on above: Performed By: #### C BC #### [facility] [address] [place] [address] Dr. Dwight Waters EO # 0.2 103/ul Normal 0.0-0.7 [facility] Comment on above: Performed By: #### C BC #### [facility] [address] [place] [address] Dr. Dwight Waters Eosinophils/100 WBC (Bld) 3.8 % Normal 0.9-7.0 [facility] Comment on above: Performed By: #### C BC #### [facility] [address] [place] [address] Dr. Dwight Waters Erythrocyte distribution width (RBC) [Ratio] 12.5 % Normal 11.0-15.0 [facility] Comment on above: Performed By: #### C BC #### [facility] [address] [place] [address] Dr. Dwight Watres Hematocrit (Bld) [Volume fraction] 49.8 % Normal 42.0-54.0 [facility] Comment on above: Performed By: #### C BC #### [facility] [address] [place] [address] Dr. Dwight Waters Hemoglobin (Bld) [Mass/Vol] 16.4 g/dL Normal 14.0-18.0 [facility] Comment on above: Performed By: #### C BC #### [facility] [address] [place] [address] Dr. Dwight Waters IG # 0.01 10e3/ul Normal 0.00-0.03 [facility] Comment on above: Performed By: #### C BC #### [facility] [address] [place] [address] Dr. Dwight Watesr IG % 0.2 % Normal 0.0-0.5 [facility] Comment on above: Performed By: #### C BC #### [facility] [address] [place] [address] Dr. Dwight Waters LYMPH # 2.1 103/ul Normal 1.2-3.8 [facility] Comment on above: Performed By: #### C BC #### [facility] [address] [place] [address] Dr. Dwight Waters Lymphocytes/100 WBC (Bld) 39.1 % Normal 20.5-60.0 [facility] Comment on above: Performed By: #### C BC #### [facility] [address] [place] [address] Dr. Dwight Waters MANUAL DIFF REQ NO Normal [facility] Comment on above: Performed By: #### C BC #### [facility] [address] [place] [address] Dr. Dwight Waters MCH (RBC) [Entitic mass] 28.6 pg Normal 25.9-34.0 [facility] Comment on above: Performed By: #### C BC #### [facility] [address] [place] [address] Dr. Dwight Waters MCHC (RBC) [Mass/Vol] 32.9 g/dL Normal 29.9-35.2 [facility] Comment on above: Performed By: #### C BC #### [facility] [address] [place] [address] Dr. Dwight Waters MCV (RBC) [Entitic vol] 86.9 fL Normal 80.0-94.0 [facility] Comment on above: Performed By: #### C BC #### [facility] [address] [place] [address] Dr. Dwight Waters MONO # 0.6 103/ul Normal 0.3-0.8 [facility] Comment on above: Performed By: #### C BC #### [facility] [address] [place] [address] Dr. Dwight Waters Monocytes/100 WBC (Bld) 10.6 % Normal 1.7-12.0 [facility] Comment on above: Performed By: #### C BC #### [facility] [address] [place] [address] Dr. Dwight Waters NEUT # 2.5 103/ul Normal 1.4-6.5 [facility] Comment on above: Performed By: #### C BC #### [facility] [address] [place] [address] Dr. Dwight Waters Neutrophils/100 WBC (Bld) 45.4 % Normal 43.0-75.0 [facility] Comment on above: Performed By: #### C BC #### [facility] [address] [place] [address] Dr. Dwight Waters Platelet mean volume (Bld) [Entitic vol] 9.3 fL Critically low 9.5-13.5 [facility] Comment on above: Performed By: #### C BC #### [facility] [address] [place] [address] Dr. Dwight Waters PLT 248 103/ul Normal 150-450 [facility] Comment on above: Performed By: #### C BC #### [facility] [address] [place] [address] Dr. Dwight Waters RBC 5.73 106/ul Normal 4.70-6.10 [facility] Comment on above: Performed By: #### C BC #### [facility] [address] [place] [address] Dr. Dwight Waters WBC 5.5 103/ul Normal 4.0-11.0 [facility] Comment on above: Performed By: #### C BC #### [facility] [address] [place] [address] Dr. Dwight Waters CHLORIDEon 04-28-2023 Chloride [Moles/Vol] 107 mmol/L Normal 98-107 [facility] Comment on above: Performed By: #### U RTPCR #### [facility] [address] [place] [address] Dr. Dwight Waters CO2on 04-28-2023 CO2 [Moles/Vol] 28.9 mmol/L Normal 21.0-32.0 [facility] Comment on above: Performed By: #### U RTPCR #### [facility] [address] [place] [address] Dr. Dwight Waters CREATININEon 04-28-2023 Creatinine [Mass/Vol] 1.17 mg/dL Normal 0.70-1.30 [facility] Comment on above: Performed By: #### U RTPCR #### [facility] [address] [place] [address] Dr. Dwight Waters EGFR-AF CONGOLESE >60 Normal >=60 [facility] Comment on above: Performed By: #### U RTPCR #### [facility] [address] [place] [address] Dr. Dwight Waters EGFR-NON AF CONGOLESE >60 Normal >=60 [facility] Comment on above: Performed By: #### U RTPCR #### [facility] [address] [place] [address] Dr. Dwight Waters GGTon 04-28-2023 Gamma glutamyl transferase [Catalytic activity/Vol] 27 U/L Normal 15-85 [facility] Comment on above: Performed By: #### U RTPCR #### [facility] [address] [place] [address] Dr. Dwight Waters GLUCOSE BLOODon 04-28-2023 Glucose [Mass/Vol] 110 mg/dL Critically high 74-106 [facility] Comment on above: Performed By: #### U RTPCR #### [facility] [address] [place] [address] Dr. Dwight Waters MAGNESIUMon 04-28-2023 Magnesium [Mass/Vol] 1.7 mg/dL Critically low 1.8-2.4 [facility] Comment on above: Performed By: #### U RTPCR #### [facility] [address] [place] [address] Dr. Dwight Waters NAon 04-28-2023 Sodium [Moles/Vol] 144 mmol/L Normal 136-145 [facility] Comment on above: Performed By: #### U RTPCR #### [facility] [address] [place] [address] Dr. Dwight Waters PHOSPHORUSon 04-28-2023 Phosphate [Mass/Vol] 3.2 mg/dL Normal 2.6-4.7 [facility] Comment on above: Performed By: #### U RTPCR #### [facility] [address] [place] [address] Dr. Dwight Waters POTASSIUMon 04-28-2023 Potassium [Moles/Vol] 4.0 mmol/L Normal 3.5-5.1 [facility] Comment on above: Performed By: #### U RTPCR #### [facility] [address] [place] [address] Dr. Dwight Waters SGOTon 04-28-2023 AST [Catalytic activity/Vol] 25 U/L Normal 15-37 [facility] Comment on above: Performed By: #### C MP #### [facility] [address] [place] [address] Dr. Dwight Waters SGPTon 04-28-2023 ALT [Catalytic activity/Vol] 40 U/L Normal 16-63 [facility] Comment on above: Performed By: #### C MP #### [facility] [address] [place] [address] Dr. Dwight Waters URINE T PROTEIN CREAT RATIOo n 04-28-2023 Protein (U) [Mass/Vol] 10.1 mg/dL Normal <=12.0 [facility] Comment on above: Performed By: #### U RTPCR #### [facility] [address] [place] [address] Dr. Dwight Waters UR PROT CREAT RAT 0.14 Normal [facility] Comment on above: Performed By: #### U RTPCR #### [facility] [address] [place] [address] Dr. Dwight Waters URINE CREAT 74.40 mg/dL Normal 20.00-300.00 [facility] Comment on above: Performed By: #### U RTPCR #### [facility] [address] [place] [address] Dr. Dwight Waters Office Visiton 04-13-2023 Follow-up visit [id number] George Styles 1970 M Date Provider Department Center 04/13/[address] [facility] Family History Problem Relation Age of Onset Coronary artery disease Mother Coronary artery disease Father Family Status - Relation Status Age at Mother Father Level of Service:55346 OR OFFICE/OUTPATIENT ESTABLISHED LOW MDM 20-29 MIN Reason for Visit and Comments: Hypertension [464154] Hyperlipidemia [182] Normal [facility] BK VIRUS PCR QUANTon 023 BKV DNA QUANT PCR PLASMA Negative Normal Negative [facility] Comment on above: Result Comment: No B K DNA detected. . The linear range of the assay is 22 - 100,000,000 IU/mL. Performed By: #### B KVIRUS #### [facility] [address] [place] [address] Dr. Dwight Waters Log10 BKV DNA Plasma Normal [facility] Comment on above: Performed By: #### B KVIRUS #### [facility] [address] [place] [address] Dr. Dwight Waters FK506 (TACROLIMUS) WHOLE BLO ODon 03-04-2023 Tacrolimus (FK506), Blood 5.9 ng/mL Normal 2.0-20.0 [facility] Comment on above: Result Comment: Trou gh (immediately following transplant) 15.0 . Trough (steady state, 2 weeks or more after transplant): 3.0 - 8.0 . Performed by LC-MS/MS technology. Performed By: #### C MP #### [facility] [address] [place] [address] Dr. Dwight Waters ALBUMINon 03-02-2023 Albumin [Mass/Vol] 3.9 g/dL Normal 3.4-5.0 [facility] Comment on above: Performed By: #### U RTPCR #### [facility] [address] [place] [address] Dr. Dwight Waters ALKALINE PHOSPHAon ALP [Catalytic activity/Vol] 105 U/L Normal 46-116 [facility] Comment on above: Performed By: #### U RTPCR #### [facility] [address] [place] [address] Dr. Dwight Waters BILIRUBIN CONJUGATED (DIRECT )on 03-02-2023 BILI, CONJUGATED 0.2 mg/dL Normal 0.0-0.2 [facility] Comment on above: Performed By: #### U RTPCR #### [facility] [address] [place] [address] Dr. Dwight Waters BILIRUBIN TOTALon 03-02-2023 Bilirubin [Mass/Vol] 0.9 mg/dL Normal 0.2-1.0 [facility] Comment on above: Performed By: #### U RTPCR #### [facility] [address] [place] [address] Dr. Dwight Waters CBC AUTO DIFFon 03-02-2023 BASO # 0.1 103/ul Normal 0.0-0.1 [facility] Comment on above: Performed By: #### C BC #### [facility] [address] [place] [address] Dr. Dwight Waters Basophils/100 WBC (Bld) 0.9 % Normal 0.2-2.0 [facility] Comment on above: Performed By: #### C BC #### [facility] [address] [place] [address] Dr. Dwight Waters EO # 0.2 103/ul Normal 0.0-0.7 [facility] Comment on above: Performed By: #### C BC #### [facility] [address] [place] [address] Dr. Dwight Waters Eosinophils/100 WBC (Bld) 3.5 % Normal 0.9-7.0 [facility] Comment on above: Performed By: #### C BC #### [facility] [address] [place] [address] Dr. Dwight Waters Erythrocyte distribution width (RBC) [Ratio] 12.7 % Normal 11.0-15.0 [facility] Comment on above: Performed By: #### C BC #### [facility] [address] [place] [address] Dr. Dwight Waters Hematocrit (Bld) [Volume fraction] 48.2 % Normal 42.0-54.0 [facility] Comment on above: Performed By: #### C BC #### [facility] [address] [place] [address] Dr. Dwight Waters Hemoglobin (Bld) [Mass/Vol] 15.9 g/dL Normal 14.0-18.0 [facility] Comment on above: Performed By: #### C BC #### [facility] [address] [place] [address] Dr. Dwight Waters IG # 0.01 10e3/ul Normal 0.00-0.03 [facility] Comment on above: Performed By: #### C BC #### [facility] [address] [place] [address] Dr. Dwight Waters IG % 0.2 % Normal 0.0-0.5 [facility] Comment on above: Performed By: #### C BC #### [facility] [address] [place] [address] Dr. Dwight Waters LYMPH # 2.1 103/ul Normal 1.2-3.8 [facility] Comment on above: Performed By: #### C BC #### [facility] [address] [place] [address] Dr. Dwight Waters Lymphocytes/100 WBC (Bld) 37.4 % Normal 20.5-60.0 [facility] Comment on above: Performed By: #### C BC #### [facility] [address] [place] [address] Dr. Dwight Waters MANUAL DIFF REQ NO Normal [facility] Comment on above: Performed By: #### C BC #### [facility] [address] [place] [address] Dr. Dwight Waters MCH (RBC) [Entitic mass] 28.3 pg Normal 25.9-34.0 [facility] Comment on above: Performed By: #### C BC #### [facility] [address] [place] [address] Dr. Dwight Waters MCHC (RBC) [Mass/Vol] 33.0 g/dL Normal 29.9-35.2 [facility] Comment on above: Performed By: #### C BC #### [facility] [address] [place] [address] Dr. Dwight Waters MCV (RBC) [Entitic vol] 85.8 fL Normal 80.0-94.0 [facility] Comment on above: Performed By: #### C BC #### [facility] [address] [place] [address] Dr. Dwight Waters MONO # 0.6 103/ul Normal 0.3-0.8 [facility] Comment on above: Performed By: #### C BC #### [facility] [address] [place] [address] Dr. Dwight Waters Monocytes/100 WBC (Bld) 10.2 % Normal 1.7-12.0 [facility] Comment on above: Performed By: #### C BC #### [facility] [address] [place] [address] Dr. Dwight Waters NEUT # 2.7 103/ul Normal 1.4-6.5 [facility] Comment on above: Performed By: #### C BC #### [facility] [address] [place] [address] Dr. Dwight Waters Neutrophils/100 WBC (Bld) 47.8 % Normal 43.0-75.0 [facility] Comment on above: Performed By: #### C BC #### [facility] [address] [place] [address] Dr. Dwight Waters Platelet mean volume (Bld) [Entitic vol] 9.3 fL Critically low 9.5-13.5 [facility] Comment on above: Performed By: #### C BC #### [facility] [address] [place] [address] Dr. Dwight Waters PLT 241 103/ul Normal 150-450 [facility] Comment on above: Performed By: #### C BC #### [facility] [address] [place] [address] Dr. Dwight Waters RBC 5.62 106/ul Normal 4.70-6.10 [facility] Comment on above: Performed By: #### C BC #### [facility] [address] [place] [address] Dr. Dwight Waters WBC 5.7 103/ul Normal 4.0-11.0 [facility] Comment on above: Performed By: #### C BC #### [facility] [address] [place] [address] Dr. Dwight Waters GGTon 03-02-2023 Gamma glutamyl transferase [Catalytic activity/Vol] 25 U/L Normal 15-85 [facility] Comment on above: Performed By: #### U RTPCR #### [facility] [address] [place] [address] Dr. Dwight Waters MAGNESIUMon 03-02-2023 Magnesium [Mass/Vol] 1.6 mg/dL Critically low 1.8-2.4 [facility] Comment on above: Performed By: #### U RTPCR #### [facility] [address] [place] [address] Dr. Dwight aWters PHOSPHORUSon 03-02-2023 Phosphate [Mass/Vol] 3.6 mg/dL Normal 2.6-4.7 [facility] Comment on above: Performed By: #### U RTPCR #### [facility] [address] [place] [address] Dr. Dwight Waters PROF CHEM 8 (BAS METB)on Anion gap [Moles/Vol] 9.4 mmol/L Normal [facility] Comment on above: Performed By: #### U RTPCR #### [facility] [address] [place] [address] Dr. Dwight Waters Calcium [Mass/Vol] 9.3 mg/dL Normal 8.5-10.1 [facility] Comment on above: Performed By: #### U RTPCR #### [facility] [address] [place] [address] Dr. Dwight Waters Chloride [Moles/Vol] 108 mmol/L Critically high 98-107 [facility] Comment on above: Performed By: #### U RTPCR #### [facility] [address] [place] [address] Dr. Dwight Waters CO2 [Moles/Vol] 27.2 mmol/L Normal 21.0-32.0 [facility] Comment on above: Performed By: #### U RTPCR #### [facility] [address] [place] [address] Dr. Dwight Waters Creatinine [Mass/Vol] 1.12 mg/dL Normal 0.70-1.30 [facility] Comment on above: Performed By: #### U RTPCR #### [facility] [address] [place] [address] Dr. Dwight Waters EGFR-AF CONGOLESE >60 Normal >=60 [facility] Comment on above: Performed By: #### U RTPCR #### [facility] [address] [place] [address] Dr. Dwight Waters EGFR-NON AF CONGOLESE >60 Normal >=60 [facility] Comment on above: Performed By: #### U RTPCR #### [facility] [address] [place] [address] Dr. Dwight Waters Glucose [Mass/Vol] 113 mg/dL Critically high 74-106 [facility] Comment on above: Performed By: #### U RTPCR #### [facility] [address] [place] [address] Dr. Dwight Waters Potassium [Moles/Vol] 3.6 mmol/L Normal 3.5-5.1 [facility] Comment on above: Performed By: #### U RTPCR #### [facility] [address] [place] [address] Dr. Dwight Waters Sodium [Moles/Vol] 141 mmol/L Normal 136-145 [facility] Comment on above: Performed By: #### U RTPCR #### [facility] [address] [place] [address] Dr. Dwight Waters Urea nitrogen [Mass/Vol] 14.0 mg/dL Normal 7.0-18.0 [facility] Comment on above: Performed By: #### U RTPCR #### [facility] [address] [place] [address] Dr. Dwight Waters Urea nitrogen/Creatinine [Mass ratio] 12.5 mg/mg Normal [facility] Comment on above: Performed By: #### U RTPCR #### [facility] [address] [place] [address] Dr. Dwight Waters SGOTon 03-02-2023 AST [Catalytic activity/Vol] 20 U/L Normal 15-37 [facility] Comment on above: Performed By: #### U RTPCR #### [facility] [address] [place] [address] Dr. Dwight Waters SGPTon 03-02-2023 ALT [Catalytic activity/Vol] 30 U/L Normal 16-63 [facility] Comment on above: Performed By: #### U RTPCR #### [facility] [address] [place] [address] Dr. Dwight Waters URINE T PROTEIN CREAT RATIOo n 03-02-2023 Protein (U) [Mass/Vol] 10.3 mg/dL Normal <=12.0 [facility] Comment on above: Performed By: #### U RTPCR #### [facility] [address] [place] [address] Dr. Dwight Waters UR PROT CREAT RAT 0.15 Normal [facility] Comment on above: Performed By: #### U RTPCR #### [facility] [address] [place] [address] Dr. Dwight Waters URINE CREAT 68.96 mg/dL Normal 20.00-300.00 [facility] Comment on above: Performed By: #### U RTPCR #### [facility] [address] [place] [address] Dr. Dwight Waters BK VIRUS PCR QUANTon 023 BKV DNA QUANT PCR PLASMA Negative Normal Negative [facility] Comment on above: Result Comment: No B K DNA detected. . The linear range of the assay is 22 - 100,000,000 IU/mL. Performed By: #### C MP #### [facility] [address] [place] [address] Dr. Dwight Waters Log10 BKV DNA Plasma Normal [facility] Comment on above: Performed By: #### C MP #### [facility] [address] [place] [address] Dr. Dwight Waters FK506 (TACROLIMUS) WHOLE BLO ODon 12-31-2022 Tacrolimus (FK506), Blood 5.6 ng/mL Normal 2.0-20.0 [facility] Comment on above: Result Comment: Trou gh (immediately following transplant) 15.0 . Trough (steady state, 2 weeks or more after transplant): 3.0 - 8.0 . Performed by LC-MS/MS technology. Performed By: #### C MP #### [facility] [address] [place] [address] Dr. Dwight Waters ALKALINE PHOSPHAon 3 ALP [Catalytic activity/Vol] 96 U/L Normal 46-116 [facility] Comment on above: Performed By: #### C BC #### [facility] [address] [place] [address] Dr. Dwight Waters BILIRUBIN CONJUGATED (DIRECT )on 12-29-2022 BILI, CONJUGATED 0.3 mg/dL Critically high 0.0-0.2 [facility] Comment on above: Performed By: #### C BC #### [facility] [address] [place] [address] Dr. Dwight Waters BILIRUBIN TOTALon 12-29-2022 Bilirubin [Mass/Vol] 1.1 mg/dL Critically high 0.2-1.0 [facility] Comment on above: Performed By: #### C BC #### [facility] [address] [address] [address] Dwight Waters CBC AUTO DIFFon 12-29-2022 BASO # 0.1 103/ul Normal 0.0-0.1 [facility] Comment on above: Performed By: #### C MP #### [facility] [address] [address] [address] Dwight Waters Basophils/100 WBC (Bld) 0.8 % Normal 0.2-2.0 [facility] Comment on above: Performed By: #### C MP #### [facility] [address] [place] [address] Dr. Dwight Waters EO # 0.2 103/ul Normal 0.0-0.7 [facility] Comment on above: Performed By: #### C MP #### [facility] [address] [address] [address] Dwight Waters Eosinophils/100 WBC (Bld) 3.0 % Normal 0.9-7.0 [facility] Comment on above: Performed By: #### C MP #### [facility] [address] [address] [address] Dwight Waters Erythrocyte distribution width (RBC) [Ratio] 12.9 % Normal 11.0-15.0 The [facility] Comment on above: Performed By: #### C MP #### [facility] [address] [address] [address] Dwight Waters Hematocrit (Bld) [Volume fraction] 46.9 % Normal 42.0-54.0 The [facility] Comment on above: Performed By: #### C MP #### [facility] [address] [address] [address] Dwight Waters Hemoglobin (Bld) [Mass/Vol] 16.1 g/dL Normal 14.0-18.0 The [facility] Comment on above: Performed By: #### C MP #### [facility] [address] [place] [address] Dr. Dwight Waters IG # 0.01 10e3/ul Normal 0.00-0.03 [facility] Comment on above: Performed By: #### C MP #### [facility] [address] [place] [address] Dr. Dwight Waters IG % 0.2 % Normal 0.0-0.5 [facility] Comment on above: Performed By: #### C MP #### [facility] [address] [place] [address] Dr. Dwight Waters LYMPH # 1.8 103/ul Normal 1.2-3.8 The [facility] Comment on above: Performed By: #### C MP #### [facility] [address] [place] [address] Dr. Dwight Waters Lymphocytes/100 WBC (Bld) 27.9 % Normal 20.5-60.0 [facility] Comment on above: Performed By: #### C MP #### [facility] [address] [place] [address] Dr. Dwight Waters MANUAL DIFF REQ NO Normal [facility] Comment on above: Performed By: #### C MP #### [facility] [address] [place] [address] Dr. Dwight Waters MCH (RBC) [Entitic mass] 28.5 pg Normal 25.9-34.0 [facility] Comment on above: Performed By: #### C MP #### [facility] [address] [place] [address] Dr. Dwight Waters MCHC (RBC) [Mass/Vol] 34.3 g/dL Normal 29.9-35.2 The [facility] Comment on above: Performed By: #### C MP #### [facility] [address] [place] [address] Dr. Dwight Waters MCV (RBC) [Entitic vol] 83.2 fL Normal 80.0-94.0 [facility] Comment on above: Performed By: #### C MP #### [facility] [address] [place] [address] Dr. Dwight Waters MONO # 0.5 103/ul Normal 0.3-0.8 The [facility] Comment on above: Performed By: #### C MP #### [facility] [address] [place] [address] Dr. Dwight Waters Monocytes/100 WBC (Bld) 8.1 % Normal 1.7-12.0 [facility] Comment on above: Performed By: #### C MP #### [facility] [address] [place] [address] Dr. Dwight Waters NEUT # 3.8 103/ul Normal 1.4-6.5 The [facility] Comment on above: Performed By: #### C MP #### [facility] [address] [place] [address] Dr. Dwight Waters Neutrophils/100 WBC (Bld) 60.0 % Normal 43.0-75.0 [facility] Comment on above: Performed By: #### C MP #### [facility] [address] [place] [address] Dr. Dwight Waters Platelet mean volume (Bld) [Entitic vol] 9.2 fL Critically low 9.5-13.5 The [facility] Comment on above: Performed By: #### C MP #### [facility] [address] [place] [address] Dr. Dwight Waters PLT 225 103/ul Normal 150-450 The [facility] Comment on above: Performed By: #### C MP #### [facility] [address] [place] [address] Dr. Dwight Waters RBC 5.64 106/ul Normal 4.70-6.10 The [facility] Comment on above: Performed By: #### C MP #### [facility] [address] [place] [address] Dr. Dwight Waters WBC 6.3 103/ul Normal 4.0-11.0 [facility] Comment on above: Performed By: #### C MP #### [facility] [address] [place] [address] Dr. Dwight Waters GGTon 12-29-2022 Gamma glutamyl transferase [Catalytic activity/Vol] 24 U/L Normal 15-85 [facility] Comment on above: Performed By: #### C MP #### [facility] [address] [address] [address] Dwight Waters LIPID PROFILEon 12-29-2022 CHOL-HDL RATIO NORM SEE BELOW Normal [facility] Comment on above: Result Comment: 3.3 - 4.4 LOW RISK 4.4 - 7.1 AVERAGE RISK 7.1 - 11.0 MODERATE RISK >11.0 HIGH RISK Performed By: #### U RTPCR #### [facility] [address] [address] [address] Dwight Waters Cholesterol [Mass/Vol] 87 mg/dL Normal <=200 [facility] Comment on above: Performed By: #### U RTPCR #### [facility] [address] [address] [address] Dwight Waters Cholesterol in HDL [Mass/Vol] 44 mg/dL Normal 40-60 [facility] Comment on above: Performed By: #### U RTPCR #### [facility] [address] [address] [address] Dwight Waters Cholesterol in LDL [Mass/Vol] 33.0 mg/dL Normal [facility] Comment on above: Performed By: #### U RTPCR #### [facility] [address] [address] [address] Dwight Waters Cholesterol.total/Ch olesterol in HDL [Mass ratio] 2.0 {ratio} Normal [facility] Comment on above: Performed By: #### U RTPCR #### [facility] [address] [address] [address] Dwight Waters HDL NORMAL > or = 60 mg/dl - LO W CARDIOVASCULAR RISK <40 mg/dl - HIGH CARDIOVASCULAR RISK Normal [facility] Comment on above: Performed By: #### U RTPCR #### [facility] [address] [address] [address] Dwight Waters LDL CALC NORMAL SEE BELOW Normal The [facility] Comment on above: Result Comment: <100 mg/dl OPTIMAL 100 - 129 mg/dl NEAR OR ABOVE OPTIMAL 130 - 159 mg/dl BORDERLINE HIGH 160 - 189 mg/dl HIGH >190 mg/dl VERY HIGH Performed By: #### U RTPCR #### [facility] [address] [place] [address] Dr. Dwight Waters Triglyceride [Mass/Vol] 50 mg/dL Normal <=150 [facility] Comment on above: Performed By: #### U RTPCR #### [facility] [address] [place] [address] Dr. Dwight Waters VLDL CALC 10.0 mg/dL Normal The [facility] Comment on above: Performed By: #### U RTPCR #### [facility] [address] [place] [address] Dr. Dwight Waters MAGNESIUMon 12-29-2022 Magnesium [Mass/Vol] 1.6 mg/dL Critically low 1.8-2.4 [facility] Comment on above: Performed By: #### C BC #### [facility] [address] [place] [address] Dr. Dwight Waters RENAL FUNCTION PANELon 12-29 Albumin [Mass/Vol] 3.9 g/dL Normal 3.4-5.0 The [facility] Comment on above: Performed By: #### C BC #### [facility] [address] [place] [address] Dr. Dwight Waters Calcium [Mass/Vol] 9.2 mg/dL Normal 8.5-10.1 [facility] Comment on above: Performed By: #### C BC #### [facility] [address] [place] [address] Dr. Dwight Waters Chloride [Moles/Vol] 109 mmol/L Critically high 98-107 The [facility] Comment on above: Performed By: #### C BC #### [facility] [address] [place] [address] Dr. Dwight Waters CO2 [Moles/Vol] 27.0 mmol/L Normal 21.0-32.0 The [facility] Comment on above: Performed By: #### C BC #### [facility] [address] [place] [address] Dr. Dwight Waters Creatinine [Mass/Vol] 1.02 mg/dL Normal 0.70-1.30 [facility] Comment on above: Performed By: #### C BC #### [facility] [address] [place] [address] Dr. Dwight Waters EGFR-AF CONGOLESE >60 Normal >=60 [facility] Comment on above: Performed By: #### C BC #### [facility] [address] [place] [address] Dr. Dwight Waters EGFR-NON AF CONGOLESE >60 Normal >=60 [facility] Comment on above: Performed By: #### C BC #### [facility] [address] [place] [address] Dr. Dwight Waters Glucose [Mass/Vol] 117 mg/dL Critically high 74-106 [facility] Comment on above: Performed By: #### C BC #### [facility] [address] [place] [address] Dr. Dwight Waters Phosphate [Mass/Vol] 3.2 mg/dL Normal 2.6-4.7 [facility] Comment on above: Performed By: #### C BC #### [facility] [address] [place] [address] Dr. Dwight Waters Potassium [Moles/Vol] 4.1 mmol/L Normal 3.5-5.1 [facility] Comment on above: Performed By: #### C BC #### [facility] [address] [place] [address] Dr. Dwight Waters Sodium [Moles/Vol] 144 mmol/L Normal 136-145 [facility] Comment on above: Performed By: #### C BC #### [facility] [address] [place] [address] Dr. Dwight Waters Urea nitrogen [Mass/Vol] 13.0 mg/dL Normal 7.0-18.0 [facility] Comment on above: Performed By: #### C BC #### [facility] [address] [place] [address] Dr. Dwight Waters SGOTon 12-29-2022 AST [Catalytic activity/Vol] 21 U/L Normal 15-37 [facility] Comment on above: Performed By: #### C BC #### [facility] [address] [place] [address] Dr. Dwight Waters SGPTon 12-29-2022 ALT [Catalytic activity/Vol] 32 U/L Normal 16-63 The [facility] Comment on above: Performed By: #### C BC #### [facility] [address] [place] [address] Dr. Dwight Waters URINE T PROTEIN CREAT RATIOo n 12-29-2022 Protein (U) [Mass/Vol] 14.3 mg/dL Critically high <=12.0 [facility] Comment on above: Performed By: #### U RTPCR #### [facility] [address] [place] [address] Dr. Dwight Waters UR PROT CREAT RAT 0.17 Normal [facility] Comment on above: Performed By: #### U RTPCR #### [facility] [address] [place] [address] Dr. Dwight Waters URINE CREAT 86.58 mg/dL Normal 20.00-300.00 [facility] Comment on above: Performed By: #### U RTPCR #### [facility] [address] [place] [address] Dr. Dwight Waters FK506 (TACROLIMUS) WHOLE BLO ODon 11-06-2022 Tacrolimus (FK506), Blood 4.9 ng/mL Normal 2.0-20.0 [facility] Comment on above: Result Comment: Trou gh (immediately following transplant) 15.0 . Trough (steady state, 2 weeks or more after transplant): 3.0 - 8.0 . Performed by LC-MS/MS technology. Performed By: #### U RTPCR #### [facility] [address] [place] [address] Dr. Dwight Waters ALKALINE PHOSPHAon 2 ALP [Catalytic activity/Vol] 86 U/L Normal 46-116 The [facility] Comment on above: Performed By: #### U RTPCR #### [facility] [address] [place] [address] Dr. Dwight Waters BILIRUBIN CONJUGATED (DIRECT )on 11-04-2022 BILI, CONJUGATED 0.2 mg/dL Normal 0.0-0.2 [facility] Comment on above: Performed By: #### U RTPCR #### [facility] [address] [place] [address] Dr. Dwight Waters BILIRUBIN TOTALon 11-04-2022 Bilirubin [Mass/Vol] 0.8 mg/dL Normal 0.2-1.0 The [facility] Comment on above: Performed By: #### U RTPCR #### [facility] [address] [place] [address] Dr. Dwight Waters CBC AUTO DIFFon 11-04-2022 BASO # 0.1 103/ul Normal 0.0-0.1 [facility] Comment on above: Performed By: #### U RTPCR #### [facility] [address] [place] [address] Dr. Dwight Waters Basophils/100 WBC (Bld) 0.9 % Normal 0.2-2.0 [facility] Comment on above: Performed By: #### U RTPCR #### [facility] [address] [place] [address] Dr. Dwight Waters EO # 0.2 103/ul Normal 0.0-0.7 [facility] Comment on above: Performed By: #### U RTPCR #### [facility] [address] [place] [address] Dr. Dwight Waters Eosinophils/100 WBC (Bld) 3.7 % Normal 0.9-7.0 The [facility] Comment on above: Performed By: #### U RTPCR #### [facility] [address] [place] [address] Dr. Dwight Waters Erythrocyte distribution width (RBC) [Ratio] 12.9 % Normal 11.0-15.0 [facility] Comment on above: Performed By: #### U RTPCR #### [facility] [address] [place] [address] Dr. Dwight Waters Hematocrit (Bld) [Volume fraction] 48.3 % Normal 42.0-54.0 [facility] Comment on above: Performed By: #### U RTPCR #### [facility] [address] [address] [address] Dwight Waters Hemoglobin (Bld) [Mass/Vol] 15.6 g/dL Normal 14.0-18.0 [facility] Comment on above: Performed By: #### U RTPCR #### [facility] [address] [address] [address] Dwight Waters IG # 0.01 10e3/ul Normal 0.00-0.03 [facility] Comment on above: Performed By: #### U RTPCR #### [facility] [address] [place] [address] Dr. Dwight Waters IG % 0.2 % Normal 0.0-0.5 [facility] Comment on above: Performed By: #### U RTPCR #### [facility] [address] [place] [address] Dr. Dwight Waters LYMPH # 1.9 103/ul Normal 1.2-3.8 [facility] Comment on above: Performed By: #### U RTPCR #### [facility] [address] [place] [address] Dr. Dwight Waters Lymphocytes/100 WBC (Bld) 33.0 % Normal 20.5-60.0 [facility] Comment on above: Performed By: #### U RTPCR #### [facility] [address] [place] [address] Dr. Dwight Waters MANUAL DIFF REQ NO Normal The [facility] Comment on above: Performed By: #### U RTPCR #### [facility] [address] [place] [address] Dr. Dwight Waters MCH (RBC) [Entitic mass] 27.6 pg Normal 25.9-34.0 The [facility] Comment on above: Performed By: #### U RTPCR #### [facility] [address] [place] [address] Dr. Dwight Waters MCHC (RBC) [Mass/Vol] 32.3 g/dL Normal 29.9-35.2 The [facility] Comment on above: Performed By: #### U RTPCR #### [facility] [address] [place] [address] Dr. Dwight Waters MCV (RBC) [Entitic vol] 85.5 fL Normal 80.0-94.0 [facility] Comment on above: Performed By: #### U RTPCR #### [facility] [address] [place] [address] Dr. Dwight Waters MONO # 0.5 103/ul Normal 0.3-0.8 [facility] Comment on above: Performed By: #### U RTPCR #### [facility] [address] [place] [address] Dr. Dwight Waters Monocytes/100 WBC (Bld) 8.8 % Normal 1.7-12.0 [facility] Comment on above: Performed By: #### U RTPCR #### [facility] [address] [place] [address] Dr. Dwight Waters NEUT # 3.1 103/ul Normal 1.4-6.5 [facility] Comment on above: Performed By: #### U RTPCR #### [facility] [address] [place] [address] Dr. Dwight Waters Neutrophils/100 WBC (Bld) 53.4 % Normal 43.0-75.0 [facility] Comment on above: Performed By: #### U RTPCR #### [facility] [address] [place] [address] Dr. Dwight Waters Platelet mean volume (Bld) [Entitic vol] 9.2 fL Critically low 9.5-13.5 [facility] Comment on above: Performed By: #### U RTPCR #### [facility] [address] [place] [address] Dr. Dwight Waters PLT 255 103/ul Normal 150-450 The [facility] Comment on above: Performed By: #### U RTPCR #### [facility] [address] [place] [address] Dr. Dwight Waters RBC 5.65 106/ul Normal 4.70-6.10 The [facility] Comment on above: Performed By: #### U RTPCR #### [facility] [address] [place] [address] Dr. Dwight Waters WBC 5.7 103/ul Normal 4.0-11.0 The [facility] Comment on above: Performed By: #### U RTPCR #### [facility] [address] [place] [address] Dr. Dwight Waters GGTon 11-04-2022 Gamma glutamyl transferase [Catalytic activity/Vol] 22 U/L Normal 15-85 The [facility] Comment on above: Performed By: #### U RTPCR #### [facility] [address] [place] [address] Dr. Dwight Waters MAGNESIUMon 11-04-2022 Magnesium [Mass/Vol] 1.8 mg/dL Normal 1.8-2.4 The [facility] Comment on above: Performed By: #### U RTPCR #### [facility] [address] [place] [address] Dr. Dwight Waters RENAL FUNCTION PANELon 11-04 Albumin [Mass/Vol] 3.8 g/dL Normal 3.4-5.0 [facility] Comment on above: Performed By: #### U RTPCR #### [facility] [address] [place] [address] Dr. Dwight Waters Calcium [Mass/Vol] 9.3 mg/dL Normal 8.5-10.1 The [facility] Comment on above: Performed By: #### U RTPCR #### [facility] [address] [place] [address] Dr. Dwight Waters Chloride [Moles/Vol] 107 mmol/L Normal 98-107 The [facility] Comment on above: Performed By: #### U RTPCR #### [facility] [address] [place] [address] Dr. Dwight Waters CO2 [Moles/Vol] 29.2 mmol/L Normal 21.0-32.0 The [facility] Comment on above: Performed By: #### U RTPCR #### [facility] [address] [place] [address] Dr. Dwight Waters Creatinine [Mass/Vol] 1.07 mg/dL Normal 0.70-1.30 [facility] Comment on above: Performed By: #### U RTPCR #### [facility] [address] [place] [address] Dr. Dwight Waters EGFR-AF CONGOLESE >60 Normal >=60 [facility] Comment on above: Performed By: #### U RTPCR #### [facility] [address] [address] [address] Dwight Waters EGFR-NON AF CONGOLESE >60 Normal >=60 [facility] Comment on above: Performed By: #### U RTPCR #### [facility] [address] [place] [address] Dr. Dwight Waters Glucose [Mass/Vol] 106 mg/dL Normal 74-106 [facility] Comment on above: Performed By: #### U RTPCR #### [facility] [address] [place] [address] Dr. Dwight Waters Phosphate [Mass/Vol] 2.8 mg/dL Normal 2.6-4.7 [facility] Comment on above: Performed By: #### U RTPCR #### [facility] [address] [place] [address] Dr. Dwight Waters Potassium [Moles/Vol] 4.1 mmol/L Normal 3.5-5.1 [facility] Comment on above: Performed By: #### U RTPCR #### [facility] [address] [place] [address] Dr. Dwight Waters Sodium [Moles/Vol] 143 mmol/L Normal 136-145 The [facility] Comment on above: Performed By: #### U RTPCR #### [facility] [address] [place] [address] Dr. Dwight Waters Urea nitrogen [Mass/Vol] 12.0 mg/dL Normal 7.0-18.0 [facility] Comment on above: Performed By: #### U RTPCR #### [facility] [address] [place] [address] Dr. Dwight Waters SGAlicia 11-04-2022 AST [Catalytic activity/Vol] 19 U/L Normal 15-37 [facility] Comment on above: Performed By: #### U RTPCR #### [facility] [address] [place] [address] Dr. Dwight Waters SGPTon 11-04-2022 ALT [Catalytic activity/Vol] 28 U/L Normal 16-63 [facility] Comment on above: Performed By: #### U RTPCR #### [facility] [address] [place] [address] Dr. Dwight Waters URINE T PROTEIN CREAT RATIOo n 11-04-2022 Protein (U) [Mass/Vol] 10.7 mg/dL Normal <=12.0 [facility] Comment on above: Performed By: #### U RTPCR #### [facility] [address] [place] [address] Dr. Dwight Waters UR PROT CREAT RAT 0.13 Normal [facility] Comment on above: Performed By: #### U RTPCR #### [facility] [address] [place] [address] Dr. Dwight Waters URINE CREAT 84.50 mg/dL Normal 20.00-300.00 [facility] Comment on above: Performed By: #### U RTPCR #### [facility] [address] [place] [address] Dr. Dwight Waters FK506 (TACROLIMUS) WHOLE BLO ODon 09-18-2022 Tacrolimus (FK506), Blood 4.6 ng/mL Normal 2.0-20.0 [facility] Comment on above: Result Comment: Trou gh (immediately following transplant) 15.0 . Trough (steady state, 2 weeks or more after transplant): 3.0 - 8.0 . Performed by LC-MS/MS technology. Performed By: #### U RTPCR #### [facility] [address] [place] [address] Dr. Dwight Waters BK VIRUS PCR QUANTon 022 BKV DNA QUANT PCR PLASMA Negative Normal Negative The [facility] Comment on above: Result Comment: No B K DNA detected. . The linear range of the assay is 22 - 100,000,000 IU/mL. Performed By: #### U RTPCR #### [facility] [address] [place] [address] Dr. Dwight Waters Log10 BKV DNA Plasma Normal The [facility] Comment on above: Performed By: #### U RTPCR #### [facility] [address] [place] [address] Dr. Dwight Waters ALKALINE PHOSPHAon ALP [Catalytic activity/Vol] 92 U/L Normal 46-116 The [facility] Comment on above: Performed By: #### U RTPCR #### [facility] [address] [place] [address] Dr. Dwight Waters BILIRUBIN CONJUGATED (DIRECT )on 09-15-2022 BILI, CONJUGATED 0.3 mg/dL Critically high 0.0-0.2 [facility] Comment on above: Performed By: #### U RTPCR #### [facility] [address] [place] [address] Dr. Dwight Waters BILIRUBIN TOTALon 09-15-2022 Bilirubin [Mass/Vol] 1.1 mg/dL Critically high 0.2-1.0 [facility] Comment on above: Performed By: #### U RTPCR #### [facility] [address] [place] [address] Dr. Dwight Waters CBC AUTO DIFFon 09-15-2022 BASO # 0.1 103/ul Normal 0.0-0.1 [facility] Comment on above: Performed By: #### C BC #### [facility] [address] [place] [address] Dr. Dwight Waters Basophils/100 WBC (Bld) 0.8 % Normal 0.2-2.0 The [facility] Comment on above: Performed By: #### C BC #### [facility] [address] [place] [address] Dr. Dwight Waters EO # 0.2 103/ul Normal 0.0-0.7 The [facility] Comment on above: Performed By: #### C BC #### [facility] [address] [place] [address] Dr. Dwight Waters Eosinophils/100 WBC (Bld) 3.5 % Normal 0.9-7.0 [facility] Comment on above: Performed By: #### C BC #### [facility] [address] [place] [address] Dr. Dwight Waters Erythrocyte distribution width (RBC) [Ratio] 13.0 % Normal 11.0-15.0 [facility] Comment on above: Performed By: #### C BC #### [facility] [address] [place] [address] Dr. Dwight Waters Hematocrit (Bld) [Volume fraction] 50.0 % Normal 42.0-54.0 [facility] Comment on above: Performed By: #### C BC #### [facility] [address] [place] [address] Dr. Dwight Waters Hemoglobin (Bld) [Mass/Vol] 16.0 g/dL Normal 14.0-18.0 [facility] Comment on above: Performed By: #### C BC #### [facility] [address] [place] [address] Dr. Dwight Waters IG # 0.02 10e3/ul Normal 0.00-0.03 [facility] Comment on above: Performed By: #### C BC #### [facility] [address] [place] [address] Dr. Dwight Waters IG % 0.3 % Normal 0.0-0.5 [facility] Comment on above: Performed By: #### C BC #### [facility] [address] [place] [address] Dr. Dwight Waters LYMPH # 1.8 103/ul Normal 1.2-3.8 The [facility] Comment on above: Performed By: #### C BC #### [facility] [address] [place] [address] Dr. Dwight Waters Lymphocytes/100 WBC (Bld) 26.5 % Normal 20.5-60.0 [facility] Comment on above: Performed By: #### C BC #### [facility] [address] [place] [address] Dr. Dwight Waters MANUAL DIFF REQ NO Normal [facility] Comment on above: Performed By: #### C BC #### [facility] [address] [place] [address] Dr. Dwight Waters MCH (RBC) [Entitic mass] 28.1 pg Normal 25.9-34.0 The [facility] Comment on above: Performed By: #### C BC #### [facility] [address] [place] [address] Dr. Dwight Waters MCHC (RBC) [Mass/Vol] 32.0 g/dL Normal 29.9-35.2 The [facility] Comment on above: Performed By: #### C BC #### [facility] [address] [place] [address] Dr. Dwight Waters MCV (RBC) [Entitic vol] 87.9 fL Normal 80.0-94.0 [facility] Comment on above: Performed By: #### C BC #### [facility] [address] [place] [address] Dr. Dwight Waters MONO # 0.5 103/ul Normal 0.3-0.8 The [facility] Comment on above: Performed By: #### C BC #### [facility] [address] [place] [address] Dr. Dwight Waters Monocytes/100 WBC (Bld) 8.1 % Normal 1.7-12.0 [facility] Comment on above: Performed By: #### C BC #### [facility] [address] [place] [address] Dr. Dwight Waters NEUT # 4.0 103/ul Normal 1.4-6.5 The [facility] Comment on above: Performed By: #### C BC #### [facility] [address] [place] [address] Dr. Dwight Waters Neutrophils/100 WBC (Bld) 60.8 % Normal 43.0-75.0 The [facility] Comment on above: Performed By: #### C BC #### [facility] [address] [place] [address] Dr. Dwight Waters Platelet mean volume (Bld) [Entitic vol] 9.4 fL Critically low 9.5-13.5 The [facility] Comment on above: Performed By: #### C BC #### [facility] [address] [place] [address] Dr. Dwight Waters PLT 265 103/ul Normal 150-450 The [facility] Comment on above: Performed By: #### C BC #### [facility] [address] [place] [address] Dr. Dwight Waters RBC 5.69 106/ul Normal 4.70-6.10 The [facility] Comment on above: Performed By: #### C BC #### [facility] [address] [place] [address] Dr. Dwight Waters WBC 6.6 103/ul Normal 4.0-11.0 The [facility] Comment on above: Performed By: #### C BC #### [facility] [address] [place] [address] Dr. Dwight Waters GGTon 09-15-2022 Gamma glutamyl transferase [Catalytic activity/Vol] 23 U/L Normal 15-85 The [facility] Comment on above: Performed By: #### U RTPCR #### [facility] [address] [place] [address] Dr. Dwight Waters MAGNESIUMon 09-15-2022 Magnesium [Mass/Vol] 1.8 mg/dL Normal 1.8-2.4 The [facility] Comment on above: Performed By: #### U RTPCR #### [facility] [address] [place] [address] Dr. Dwight Waters RENAL FUNCTION PANELon 09-15 Albumin [Mass/Vol] 4.1 g/dL Normal 3.4-5.0 The [facility] Comment on above: Performed By: #### C BC #### [facility] [address] [place] [address] Dr. Dwight Waters Calcium [Mass/Vol] 9.3 mg/dL Normal 8.5-10.1 The [facility] Comment on above: Performed By: #### C BC #### [facility] [address] [place] [address] Dr. Dwight Waters Chloride [Moles/Vol] 107 mmol/L Normal 98-107 The [facility] Comment on above: Performed By: #### C BC #### [facility] [address] [address] [address] Dwight Waters CO2 [Moles/Vol] 25.6 mmol/L Normal 21.0-32.0 [facility] Comment on above: Performed By: #### C BC #### [facility] [address] [place] [address] Dr. Dwight Waters Creatinine [Mass/Vol] 1.01 mg/dL Normal 0.70-1.30 [facility] Comment on above: Performed By: #### C BC #### [facility] [address] [place] [address] Dr. Dwight Waters EGFR-AF CONGOLESE >60 Normal >=60 [facility] Comment on above: Performed By: #### C BC #### [facility] [address] [place] [address] Dr. Dwight Waters EGFR-NON AF CONGOLESE >60 Normal >=60 [facility] Comment on above: Performed By: #### C BC #### [facility] [address] [place] [address] Dr. Dwight Waters Glucose [Mass/Vol] 119 mg/dL Critically high 74-106 T [facility] Comment on above: Performed By: #### C BC #### [facility] [address] [place] [address] Dr. Dwight Waters Phosphate [Mass/Vol] 2.8 mg/dL Normal 2.6-4.7 [facility] Comment on above: Performed By: #### C BC #### [facility] [address] [place] [address] Dr. Dwight Waters Potassium [Moles/Vol] 4.0 mmol/L Normal 3.5-5.1 The [facility] Comment on above: Performed By: #### C BC #### [facility] [address] [place] [address] Dr. Dwight Waters Sodium [Moles/Vol] 141 mmol/L Normal 136-145 [facility] Comment on above: Performed By: #### C BC #### [facility] [address] [place] [address] Dr. Dwight Waters Urea nitrogen [Mass/Vol] 15.0 mg/dL Normal 7.0-18.0 [facility] Comment on above: Performed By: #### C BC #### [facility] [address] [place] [address] Dr. Dwight Waters SGOTon 09-15-2022 AST [Catalytic activity/Vol] 18 U/L Normal 15-37 [facility] Comment on above: Performed By: #### U RTPCR #### [facility] [address] [place] [address] Dr. Dwight Waters SGPTon 09-15-2022 ALT [Catalytic activity/Vol] 32 U/L Normal 16-63 [facility] Comment on above: Performed By: #### C BC #### [facility] [address] [place] [address] Dr. Dwight Waters URINE T PROTEIN CREAT RATIOo n 09-15-2022 Protein (U) [Mass/Vol] 14.1 mg/dL Critically high <=12.0 [facility] Comment on above: Performed By: #### U RTPCR #### [facility] [address] [place] [address] Dr. Dwight Waters UR PROT CREAT RAT 0.14 Normal [facility] Comment on above: Performed By: #### U RTPCR #### [facility] [address] [place] [address] Dr. Dwight Waters URINE CREAT 98.89 mg/dL Normal 20.00-300.00 [facility] Comment on above: Performed By: #### U RTPCR #### [facility] [address] [place] [address] Dr. Dwight Waters US CAROTID ART BILon [...] without significant narrowing. Electronically authenticated by: MÓNICA FREDDYBECKIE Date: 2022-08-28 13:20 Normal The [facility] FK506 (TACROLIMUS) WHOLE BLO ODon 08-17-2022 Tacrolimus (FK506), Blood 9.9 ng/mL Normal 2.0-20.0 [facility] Comment on above: Result Comment: Trou gh (immediately following transplant) 15.0 . Trough (steady state, 2 weeks or more after transplant): 3.0 - 8.0 . Performed by LC-MS/MS technology. Performed By: #### F [id number] #### [facility] [address] [place] [address] Dr. Dwight Waters BK VIRUS PCR QUANTon 022 BKV DNA QUANT PCR PLASMA Negative Normal Negative The [facility] Comment on above: Result Comment: No B K DNA detected. . The linear range of the assay is 22 - 100,000,000 IU/mL. Performed By: #### U RTPCR #### [facility] [address] [place] [address] Dr. Dwight Waters Log10 BKV DNA Plasma Normal The [facility] Comment on above: Performed By: #### U RTPCR #### [facility] [address] [place] [address] Dr. Dwight Waters ALBUMINon 08-14-2022 Albumin [Mass/Vol] 4.2 g/dL Normal 3.4-5.0 [facility] Comment on above: Performed By: #### F [id number] #### [facility] [address] [place] [address] Dr. Dwight Waters ALKALINE PHOSPHAon ALP [Catalytic activity/Vol] 92 U/L Normal 46-116 The [facility] Comment on above: Performed By: #### C BC #### [facility] [address] [place] [address] Dr. Dwight Waters BILIRUBIN CONJUGATED (DIRECT )on 08-14-2022 BILI, CONJUGATED 0.3 mg/dL Critically high 0.0-0.2 [facility] Comment on above: Performed By: #### F [id number] #### [facility] [address] [place] [address] Dr. Dwight Waters BILIRUBIN TOTALon 08-14-2022 Bilirubin [Mass/Vol] 1.5 mg/dL Critically high 0.2-1.0 [facility] Comment on above: Performed By: #### F [id number] #### [facility] [address] [place] [address] Dr. Dwight Waters BUNon 08-14-2022 Urea nitrogen [Mass/Vol] 11.0 mg/dL Normal 7.0-18.0 The [facility] Comment on above: Performed By: #### C BC #### [facility] [address] [place] [address] Dr. Dwight Waters CALCIUMon 08-14-2022 Calcium [Mass/Vol] 9.4 mg/dL Normal 8.5-10.1 [facility] Comment on above: Performed By: #### F [id number] #### [facility] [address] [place] [address] Dr. Dwight Waters CBC AUTO DIFFon 08-14-2022 BASO # 0.0 103/ul Normal 0.0-0.1 [facility] Comment on above: Performed By: #### C MP #### [facility] [address] [place] [address] Dr. Dwight Waters Basophils/100 WBC (Bld) 0.5 % Normal 0.2-2.0 [facility] Comment on above: Performed By: #### C MP #### [facility] [address] [place] [address] Dr. Dwight Waters EO # 0.2 103/ul Normal 0.0-0.7 The [facility] Comment on above: Performed By: #### C MP #### [facility] [address] [place] [address] Dr. Dwight Waters Eosinophils/100 WBC (Bld) 2.6 % Normal 0.9-7.0 The [facility] Comment on above: Performed By: #### C MP #### [facility] [address] [place] [address] Dr. Dwight Waters Erythrocyte distribution width (RBC) [Ratio] 13.1 % Normal 11.0-15.0 [facility] Comment on above: Performed By: #### C MP #### [facility] [address] [place] [address] Dr. Dwight Waters Hematocrit (Bld) [Volume fraction] 47.0 % Normal 42.0-54.0 [facility] Comment on above: Performed By: #### C MP #### [facility] [address] [place] [address] Dr. Dwight Waters Hemoglobin (Bld) [Mass/Vol] 15.3 g/dL Normal 14.0-18.0 The [facility] Comment on above: Performed By: #### C MP #### [facility] [address] [place] [address] Dr. Dwight Waters IG # 0.01 10e3/ul Normal 0.00-0.03 [facility] Comment on above: Performed By: #### C MP #### [facility] [address] [place] [address] Dr. Dwight Waters IG % 0.1 % Normal 0.0-0.5 [facility] Comment on above: Performed By: #### C MP #### [facility] [address] [place] [address] Dr. Dwight Waters LYMPH # 2.3 103/ul Normal 1.2-3.8 [facility] Comment on above: Performed By: #### C MP #### [facility] [address] [place] [address] Dr. Dwight Waters Lymphocytes/100 WBC (Bld) 29.8 % Normal 20.5-60.0 [facility] Comment on above: Performed By: #### C MP #### [facility] [address] [place] [address] Dr. Dwight Waters MANUAL DIFF REQ NO Normal [facility] Comment on above: Performed By: #### C MP #### [facility] [address] [place] [address] Dr. Dwight Waters MCH (RBC) [Entitic mass] 28.2 pg Normal 25.9-34.0 [facility] Comment on above: Performed By: #### C MP #### [facility] [address] [address] [address] Dwight Waters MCHC (RBC) [Mass/Vol] 32.6 g/dL Normal 29.9-35.2 [facility] Comment on above: Performed By: #### C MP #### [facility] [address] [address] [address] Dwight Waters MCV (RBC) [Entitic vol] 86.7 fL Normal 80.0-94.0 [facility] Comment on above: Performed By: #### C MP #### [facility] [address] [address] [address] Dwight Waters MONO # 0.7 103/ul Normal 0.3-0.8 [facility] Comment on above: Performed By: #### C MP #### [facility] [address] [place] [address] Dr. Dwight Waters Monocytes/100 WBC (Bld) 8.5 % Normal 1.7-12.0 [facility] Comment on above: Performed By: #### C MP #### [facility] [address] [address] [address] Dwight Waters NEUT # 4.5 103/ul Normal 1.4-6.5 [facility] Comment on above: Performed By: #### C MP #### [facility] [address] [place] [address] Dr. Dwight Waters Neutrophils/100 WBC (Bld) 58.5 % Normal 43.0-75.0 The [facility] Comment on above: Performed By: #### C MP #### [facility] [address] [address] [address] Dwight Waters Platelet mean volume (Bld) [Entitic vol] 9.7 fL Normal 9.5-13.5 [facility] Comment on above: Performed By: #### C MP #### [facility] [address] [address] [address] Dwight Waters PLT 266 103/ul Normal 150-450 The [facility] Comment on above: Performed By: #### C MP #### [facility] [address] [place] [address] Dr. Dwight Waters RBC 5.42 106/ul Normal 4.70-6.10 The [facility] Comment on above: Performed By: #### C MP #### [facility] [address] [place] [address] Dr. Dwight Waters WBC 7.6 103/ul Normal 4.0-11.0 The [facility] Comment on above: Performed By: #### C MP #### [facility] [address] [place] [address] Dr. Dwight Waters CHLORIDEon 08-14-2022 Chloride [Moles/Vol] 104 mmol/L Normal 98-107 [facility] Comment on above: Performed By: #### C BC #### [facility] [address] [place] [address] Dr. Dwight Waters CO2on 08-14-2022 CO2 [Moles/Vol] 27.9 mmol/L Normal 21.0-32.0 [facility] Comment on above: Performed By: #### C BC #### [facility] [address] [place] [address] Dr. Dwight Waters CREATININEon 08-14-2022 Creatinine [Mass/Vol] 1.08 mg/dL Normal 0.70-1.30 [facility] Comment on above: Performed By: #### C BC #### [facility] [address] [place] [address] Dr. Dwight Waters EGFR-AF CONGOLESE >60 Normal >=60 The [facility] Comment on above: Performed By: #### C BC #### [facility] [address] [place] [address] Dr. Dwight Waters EGFR-NON AF CONGOLESE >60 Normal >=60 The [facility] Comment on above: Performed By: #### C BC #### [facility] [address] [place] [address] Dr. Dwight Waters GGTon 08-14-2022 Gamma glutamyl transferase [Catalytic activity/Vol] 24 U/L Normal 15-85 The [facility] Comment on above: Performed By: #### F [id number] #### [facility] [address] [place] [address] Dr. Dwight Waters GLUCOSE BLOODon 08-14-2022 Glucose [Mass/Vol] 111 mg/dL Critically high 74-106 T [facility] Comment on above: Performed By: #### C BC #### [facility] [address] [place] [address] Dr. Dwight Waters MAGNESIUMon 08-14-2022 Magnesium [Mass/Vol] 1.4 mg/dL Critically low 1.8-2.4 [facility] Comment on above: Performed By: #### C BC #### [facility] [address] [place] [address] Dr. Dwight Waters NAon 08-14-2022 Sodium [Moles/Vol] 140 mmol/L Normal 136-145 [facility] Comment on above: Performed By: #### F [id number] #### [facility] [address] [place] [address] Dr. Dwight Waters PHOSPHORUSon 08-14-2022 Phosphate [Mass/Vol] 3.1 mg/dL Normal 2.6-4.7 [facility] Comment on above: Performed By: #### C BC #### [facility] [address] [place] [address] Dr. Dwight Waters POTASSIUMon 08-14-2022 Potassium [Moles/Vol] 3.5 mmol/L Normal 3.5-5.1 [facility] Comment on above: Performed By: #### C BC #### [facility] [address] [place] [address] Dr. Dwight Waters SGOTon 08-14-2022 AST [Catalytic activity/Vol] 17 U/L Normal 15-37 [facility] Comment on above: Performed By: #### F K506T #### [facility] [address] [place] [address] Dr. Dwight Waters SGPTon 08-14-2022 ALT [Catalytic activity/Vol] 22 U/L Normal 16-63 [facility] Comment on above: Performed By: #### F [id number] #### [facility] [address] [place] [address] Dr. Dwight Waters URINE T PROTEIN CREAT RATIOo n 08-14-2022 Protein (U) [Mass/Vol] 10.7 mg/dL Normal <=12.0 [facility] Comment on above: Performed By: #### F K506T #### [facility] [address] [place] [address] Dr. Dwight Waters UR PROT CREAT RAT 0.10 Normal [facility] Comment on above: Performed By: #### F K506T #### [facility] [address] [place] [address] Dr. Dwight Waters URINE CREAT 104.28 mg/dL Normal 20.00-300.00 [facility] Comment on above: Performed By: #### F K506T #### [facility] [address] [place] [address] Dr. Dwight Waters NEPHROSTOMY TUBE REMOVALon 0 [...] physician present for entire procedure: yes U [facility] Radiology Study observation (narrative) [facility] FK506 (TACROLIMUS) WHOLE BLO ODon 07-06-2022 Tacrolimus (FK506), Blood 9.5 ng/mL Normal 2.0-20.0 [facility] Comment on above: Result Comment: Trou gh (immediately following transplant) 15.0 . Trough (steady state, 2 weeks or more after transplant): 3.0 - 8.0 . Performed by LC-MS/MS technology. Performed By: #### C MP #### [facility] [address] [place] [address] Dr. Dwight Waters ALBUMINon 07-03-2022 Albumin [Mass/Vol] 3.7 g/dL Normal 3.4-5.0 [facility] Comment on above: Performed By: #### U RTPCR #### [facility] [address] [place] [address] Dr. Dwight Waters ALKALINE PHOSPHAon ALP [Catalytic activity/Vol] 76 U/L Normal 46-116 The [facility] Comment on above: Performed By: #### U RTPCR #### [facility] [address] [place] [address] Dr. Dwight Waters BILIRUBIN CONJUGATED (DIRECT )on 07-03-2022 BILI, CONJUGATED 0.3 mg/dL Critically high 0.0-0.2 [facility] Comment on above: Performed By: #### C BC #### [facility] [address] [place] [address] Dr. Dwight Waters BILIRUBIN TOTALon 07-03-2022 Bilirubin [Mass/Vol] 1.4 mg/dL Critically high 0.2-1.0 [facility] Comment on above: Performed By: #### C BC #### [facility] [address] [place] [address] Dr. Dwight Waters BUNon 07-03-2022 Urea nitrogen [Mass/Vol] 15.0 mg/dL Normal 7.0-18.0 The [facility] Comment on above: Performed By: #### C BC #### [facility] [address] [place] [address] Dr. Dwight Waters CALCIUMon 07-03-2022 Calcium [Mass/Vol] 9.4 mg/dL Normal 8.5-10.1 [facility] Comment on above: Performed By: #### U RTPCR #### [facility] [address] [place] [address] Dr. Dwight Waters CBC AUTO DIFFon 07-03-2022 BASO # 0.0 103/ul Normal 0.0-0.1 [facility] Comment on above: Performed By: #### U RTPCR #### [facility] [address] [place] [address] Dr. Dwight Waters Basophils/100 WBC (Bld) 0.6 % Normal 0.2-2.0 [facility] Comment on above: Performed By: #### U RTPCR #### [facility] [address] [place] [address] Dr. Dwight Waters EO # 0.2 103/ul Normal 0.0-0.7 [facility] Comment on above: Performed By: #### U RTPCR #### [facility] [address] [place] [address] Dr. Dwight Waters Eosinophils/100 WBC (Bld) 3.5 % Normal 0.9-7.0 [facility] Comment on above: Performed By: #### U RTPCR #### [facility] [address] [place] [address] Dr. Dwight Waters Erythrocyte distribution width (RBC) [Ratio] 12.9 % Normal 11.0-15.0 [facility] Comment on above: Performed By: #### U RTPCR #### [facility] [address] [place] [address] Dr. Dwight Waters Hematocrit (Bld) [Volume fraction] 44.2 % Normal 42.0-54.0 [facility] Comment on above: Performed By: #### U RTPCR #### [facility] [address] [place] [address] Dr. Dwight Waters Hemoglobin (Bld) [Mass/Vol] 14.6 g/dL Normal 14.0-18.0 [facility] Comment on above: Performed By: #### U RTPCR #### [facility] [address] [place] [address] Dr. Dwight Waters IG # 0.02 10e3/ul Normal 0.00-0.03 [facility] Comment on above: Performed By: #### U RTPCR #### [facility] [address] [place] [address] Dr. Dwight Waters IG % 0.3 % Normal 0.0-0.5 [facility] Comment on above: Performed By: #### U RTPCR #### [facility] [address] [place] [address] Dr. Dwight Waters LYMPH # 2.0 103/ul Normal 1.2-3.8 [facility] Comment on above: Performed By: #### U RTPCR #### [facility] [address] [place] [address] Dr. Dwight Waters Lymphocytes/100 WBC (Bld) 28.4 % Normal 20.5-60.0 [facility] Comment on above: Performed By: #### U RTPCR #### [facility] [address] [place] [address] Dr. Dwight Waters MANUAL DIFF REQ NO Normal [facility] Comment on above: Performed By: #### U RTPCR #### [facility] [address] [place] [address] Dr. Dwight Waters MCH (RBC) [Entitic mass] 28.6 pg Normal 25.9-34.0 [facility] Comment on above: Performed By: #### U RTPCR #### [facility] [address] [place] [address] Dr. Dwight Waters MCHC (RBC) [Mass/Vol] 33.0 g/dL Normal 29.9-35.2 [facility] Comment on above: Performed By: #### U RTPCR #### [facility] [address] [place] [address] Dr. Dwight Waters MCV (RBC) [Entitic vol] 86.7 fL Normal 80.0-94.0 [facility] Comment on above: Performed By: #### U RTPCR #### [facility] [address] [place] [address] Dr. Dwight Waters MONO # 0.6 103/ul Normal 0.3-0.8 [facility] Comment on above: Performed By: #### U RTPCR #### [facility] [address] [place] [address] Dr. Dwight Waters Monocytes/100 WBC (Bld) 9.1 % Normal 1.7-12.0 [facility] Comment on above: Performed By: #### U RTPCR #### [facility] [address] [place] [address] Dr. Dwight Waters NEUT # 4.0 103/ul Normal 1.4-6.5 [facility] Comment on above: Performed By: #### U RTPCR #### [facility] [address] [place] [address] Dr. Dwight Waters Neutrophils/100 WBC (Bld) 58.1 % Normal 43.0-75.0 [facility] Comment on above: Performed By: #### U RTPCR #### [facility] [address] [place] [address] Dr. Dwight Waters Platelet mean volume (Bld) [Entitic vol] 9.5 fL Normal 9.5-13.5 [facility] Comment on above: Performed By: #### U RTPCR #### [facility] [address] [place] [address] Dr. Dwight Waters PLT 292 103/ul Normal 150-450 The [facility] Comment on above: Performed By: #### U RTPCR #### [facility] [address] [place] [address] Dr. Dwight Waters RBC 5.10 106/ul Normal 4.70-6.10 The [facility] Comment on above: Performed By: #### U RTPCR #### [facility] [address] [place] [address] Dr. Dwight Waters WBC 6.9 103/ul Normal 4.0-11.0 [facility] Comment on above: Performed By: #### U RTPCR #### [facility] [address] [place] [address] Dr. Dwight Waters CHLORIDEon 07-03-2022 Chloride [Moles/Vol] 108 mmol/L Critically high 98-107 [facility] Comment on above: Performed By: #### C BC #### [facility] [address] [place] [address] Dr. Dwight Waters CO2on 07-03-2022 CO2 [Moles/Vol] 25.2 mmol/L Normal 21.0-32.0 [facility] Comment on above: Performed By: #### C BC #### [facility] [address] [place] [address] Dr. Dwight Waters CREATININEon 07-03-2022 Creatinine [Mass/Vol] 1.03 mg/dL Normal 0.70-1.30 [facility] Comment on above: Performed By: #### U RTPCR #### [facility] [address] [place] [address] Dr. Dwight Waters EGFR-AF CONGOLESE >60 Normal >=60 [facility] Comment on above: Performed By: #### U RTPCR #### [facility] [address] [place] [address] Dr. Dwight Waters EGFR-NON AF CONGOLESE >60 Normal >=60 [facility] Comment on above: Performed By: #### U RTPCR #### [facility] [address] [place] [address] Dr. Dwight Waters GGTon 07-03-2022 Gamma glutamyl transferase [Catalytic activity/Vol] 31 U/L Normal 15-85 [facility] Comment on above: Performed By: #### U RTPCR #### [facility] [address] [place] [address] Dr. Dwight Waters GLUCOSE BLOODon 07-03-2022 Glucose [Mass/Vol] 119 mg/dL Critically high 74-106 [facility] Comment on above: Performed By: #### U RTPCR #### [facility] [address] [place] [address] Dr. Dwight Waters MAGNESIUMon 07-03-2022 Magnesium [Mass/Vol] 1.4 mg/dL Critically low 1.8-2.4 [facility] Comment on above: Performed By: #### C BC #### [facility] [address] [place] [address] Dr. Dwight Waters NAon 07-03-2022 Sodium [Moles/Vol] 142 mmol/L Normal 136-145 [facility] Comment on above: Performed By: #### C MP #### [facility] [address] [place] [address] Dr. Dwight Waters PHOSPHORUSon 07-03-2022 Phosphate [Mass/Vol] 3.4 mg/dL Normal 2.6-4.7 [facility] Comment on above: Performed By: #### C BC #### [facility] [address] [place] [address] Dr. Dwight Waters POTASSIUMon 07-03-2022 Potassium [Moles/Vol] 4.1 mmol/L Normal 3.5-5.1 [facility] Comment on above: Performed By: #### C BC #### [facility] [address] [place] [address] Dr. Dwight OLVERAOTon 07-03-2022 AST [Catalytic activity/Vol] 14 U/L Critically low 15-37 [facility] Comment on above: Performed By: #### C BC #### [facility] [address] [place] [address] Dr. Dwight Waters SGPTon 07-03-2022 ALT [Catalytic activity/Vol] 25 U/L Normal 16-63 [facility] Comment on above: Performed By: #### C BC #### [facility] [address] [place] [address] Dr. Dwight Waters US KIDNEYSon 07-03-2022 US KIDNEYS Ultrasound kidneys, bilateral HISTORY: Transplant of kidney , pain in the right lower quadrant COMPARISON: None. TECHNIQUE: Transabdominal ultrasound imaging of both kidneys was performed. FINDINGS: The [place] kidneys are diffusely echogenic and atrophic with cortical thinning. The right kidney measures 8.3 x 3.5 x 4.07 m and the left measures 9.9 x 3.8 x 3.6 cm. No hydronephrosis of the [place] kidneys. There is a renal transplant in [...] stone involving the renal transplant. 2. Atrophic [place] kidneys. 3. Normal bladder. Electronically authenticated by: ARCELIA PIZARRO Date: 2022-07-03 17:[address] [facility] [address] Abdomen and Pelvis WO con traston 06-27-2022 IMPRESSION: 1. Both [place] kidneys are atrophic with improvement in right-sided [...] Adrenals: Adrenal glands are unremarkable. Kidneys: Both [place] kidneys are atrophic. Interval improvement in right [place] kidney hydronephrosis since May 15, 2022. Status [...] Adrenals: Adrenal glands are unremarkable. Kidneys: Both [place] kidneys are atrophic. Interval improvement in right [place] kidney hydronephrosis since May 15, 2022. Status [...] aggressive osseous lesions. IMPRESSION IMPRESSION: 1. Both [place] kidneys are atrophic with improvement in right-sided hydronephrosis since May 15, 2022. 2. 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 No hydronephrosis. No discrete perinephric collection. 3. Partially imaged postsurgical changes related to prior liver transplant. 4. The bladder is decompressed, limiting evaluation. [facility] Radiology Study observation (narrative) [facility] CT Abdomen and Pelvis WO con trastOrdered By: Gera Lu on 06-27-2022 [facility] Work Phone: CBC AUTO DIFFon 06-18-2022 BASO # 0.0 103/ul Normal 0.0-0.1 [facility] Comment on above: Performed By: #### U RTPCR #### [facility] [address] [place] [address] Dr. Dwight Waters Basophils/100 WBC (Bld) 0.5 % Normal 0.2-2.0 [facility] Comment on above: Performed By: #### U RTPCR #### [facility] [address] [place] [address] Dr. Dwight Waters EO # 0.2 103/ul Normal 0.0-0.7 [facility] Comment on above: Performed By: #### U RTPCR #### [facility] [address] [place] [address] Dr. Dwight Waters Eosinophils/100 WBC (Bld) 2.3 % Normal 0.9-7.0 [facility] Comment on above: Performed By: #### U RTPCR #### [facility] [address] [place] [address] Dr. Dwight Waters Erythrocyte distribution width (RBC) [Ratio] 12.9 % Normal 11.0-15.0 [facility] Comment on above: Performed By: #### U RTPCR #### [facility] [address] [place] [address] Dr. Dwight Waters Hematocrit (Bld) [Volume fraction] 41.2 % Critically low 42.0-54.0 [facility] Comment on above: Performed By: #### U RTPCR #### [facility] [address] [place] [address] Dr. Dwight Waters Hemoglobin (Bld) [Mass/Vol] 13.3 g/dL Critically low 14.0-18.0 [facility] Comment on above: Performed By: #### U RTPCR #### [facility] [address] [place] [address] Dr. Dwight Waters IG # 0.04 10e3/ul Critically high 0.00-0.03 [facility] Comment on above: Performed By: #### U RTPCR #### [facility] [address] [place] [address] Dr. Dwight Waters IG % 0.5 % Normal 0.0-0.5 [facility] Comment on above: Performed By: #### U RTPCR #### [facility] [address] [place] [address] Dr. Dwight Waters LYMPH # 2.0 103/ul Normal 1.2-3.8 [facility] Comment on above: Performed By: #### U RTPCR #### [facility] [address] [place] [address] Dr. Dwight Wtaers Lymphocytes/100 WBC (Bld) 22.9 % Normal 20.5-60.0 [facility] Comment on above: Performed By: #### U RTPCR #### [facility] [address] [place] [address] Dr. Dwight Waters MANUAL DIFF REQ NO Normal [facility] Comment on above: Performed By: #### U RTPCR #### [facility] [address] [place] [address] Dr. Dwight Waters MCH (RBC) [Entitic mass] 28.7 pg Normal 25.9-34.0 [facility] Comment on above: Performed By: #### U RTPCR #### [facility] [address] [place] [address] Dr. Dwight Waters MCHC (RBC) [Mass/Vol] 32.3 g/dL Normal 29.9-35.2 [facility] Comment on above: Performed By: #### U RTPCR #### [facility] [address] [place] [address] Dr. Dwight Waters MCV (RBC) [Entitic vol] 88.8 fL Normal 80.0-94.0 [facility] Comment on above: Performed By: #### U RTPCR #### [facility] [address] [place] [address] Dr. Dwight Waters MONO # 0.8 103/ul Normal 0.3-0.8 [facility] Comment on above: Performed By: #### U RTPCR #### [facility] [address] [place] [address] Dr. Dwight Waters Monocytes/100 WBC (Bld) 9.7 % Normal 1.7-12.0 [facility] Comment on above: Performed By: #### U RTPCR #### [facility] [address] [place] [address] Dr. Dwight Waters NEUT # 5.6 103/ul Normal 1.4-6.5 [facility] Comment on above: Performed By: #### U RTPCR #### [facility] [address] [place] [address] Dr. Dwight Waters Neutrophils/100 WBC (Bld) 64.1 % Normal 43.0-75.0 [facility] Comment on above: Performed By: #### U RTPCR #### [facility] [address] [place] [address] Dr. Dwight Waters Platelet mean volume (Bld) [Entitic vol] 10.0 fL Normal 9.5-13.5 [facility] Comment on above: Performed By: #### U RTPCR #### [facility] [address] [place] [address] Dr. Dwight Waters PLT 270 103/ul Normal 150-450 [facility] Comment on above: Performed By: #### U RTPCR #### [facility] [address] [place] [address] Dr. Dwight Waters RBC 4.64 106/ul Critically low 4.70-6.10 [facility] Comment on above: Performed By: #### U RTPCR #### [facility] [address] [place] [address] Dr. Dwight Waters WBC 8.7 103/ul Normal 4.0-11.0 [facility] Comment on above: Performed By: #### U RTPCR #### [facility] [address] [place] [address] Dr. Dwight Waters CULTURE URINEon 06-18-2022 CULTURE URINE Culture Observations : NO GROWTH. Normal [facility] Comment on above: Performed By: #### U RTPCR #### [facility] [address] [place] [address] Dr. Dwight Waters Covid-19 PCR (CVDTB)on 05-31 SARS-CoV-2 (COVID-19) RNA ESTELITA+probe Ql (Unsp spec) Not detected Normal NOT DETECTED [facility] Comment on above: Result Comment: When diagnostic [...] for this test is supported by the [employer] of [employer] and Human Service's declaration that [...] used). Performed By: #### C BC #### [facility] [address] [place], [place] [id number] Dr. Dwight Waters ER URINE PROFILEon 2 Bilirubin Ql (U) Negative Normal NEGATIVE [facility] Comment on above: Performed By: #### U RTPCR #### [facility] [address] [place] [address] Dr. Dwight Waters Clarity (U) CLEAR Normal CLEAR [facility] Comment on above: Performed By: #### U RTPCR #### [facility] [address] [place] [address] Dr. Dwight Waters Color (U) YELLOW Normal YELLOW [facility] Comment on above: Performed By: #### U RTPCR #### [facility] [address] [place] [address] Dr. Dwight Waters ERUBERTHA A micrscopic examina tion will be performed if indicated. Normal [facility] Comment on above: Performed By: #### U RTPCR #### [facility] [address] [place] [address] Dr. Dwight Waters Glucose Ql (U) Negative Normal NEGATIVE [facility] Comment on above: Performed By: #### U RTPCR #### [facility] [address] [place] [address] Dr. Dwight Waters Hemoglobin Ql (U) LARGE Abnormal NEGATIVE [facility] Comment on above: Performed By: #### U RTPCR #### [facility] [address] [place] [address] Dr. Dwight Waters Ketones Ql (U) Negative Normal NEGATIVE [facility] Comment on above: Performed By: #### U RTPCR #### [facility] [address] [place] [address] Dr. Dwight Waters LEUKOCYTES TRACE Abnormal NEGATIVE [facility] Comment on above: Performed By: #### U RTPCR #### [facility] [address] [place] [address] Dr. Dwight Waters Nitrite Ql (U) Negative Normal NEGATIVE [facility] Comment on above: Performed By: #### U RTPCR #### [facility] [address] [place] [address] Dr. Dwight Waters pH (U) 6.0 [pH] Normal 5-9 [facility] Comment on above: Performed By: #### U RTPCR #### [facility] [address] [place] [address] Dr. Dwight Waters Protein (U) [Mass/Vol] 30 mg/dL Abnormal NEGATIVE/ TRACE [facility] Comment on above: Performed By: #### U RTPCR #### [facility] [address] [place] [address] Dr. Dwight Waters SPEC GRAVITY >=1.030 Abnormal 1.005-<=1.02 5 [facility] Comment on above: Performed By: #### U RTPCR #### [facility] [address] [place] [address] Dr. Dwight Waters UR MICRO IND INDICATED Normal [facility] Comment on above: Performed By: #### U RTPCR #### [facility] [address] [place] [address] Dr. Dwight Waters Urobilinogen Qn (U) 0.2 {Alyssa'U}/dL Normal 0.2 - 1. 0 [facility] Comment on above: Performed By: #### U RTPCR #### [facility] [address] [place] [address] Dr. Dwight Waters PROF 14(COMP METB)on 022 Albumin [Mass/Vol] 3.7 g/dL Normal 3.4-5.0 [facility] Comment on above: Performed By: #### C MP #### [facility] [address] [place] [address] Dr. Dwight Waters Albumin/Globulin [Mass ratio] 0.9 {ratio} Normal [facility] Comment on above: Performed By: #### C MP #### [facility] [address] [place] [address] Dr. Dwight Waters ALP [Catalytic activity/Vol] 80 U/L Normal 46-116 [facility] Comment on above: Performed By: #### C MP #### [facility] [address] [place] [address] Dr. Dwight Waters ALT [Catalytic activity/Vol] 24 U/L Normal 16-63 [facility] Comment on above: Performed By: #### C MP #### [facility] [address] [address] [address] Dwight Waters Anion gap [Moles/Vol] 12.9 mmol/L Normal [facility] Comment on above: Performed By: #### C MP #### [facility] [address] [address] [address] Dwight Waters AST [Catalytic activity/Vol] 17 U/L Normal 15-37 [facility] Comment on above: Performed By: #### C MP #### [facility] [address] [address] [address] Dwight Waters Bilirubin [Mass/Vol] 0.8 mg/dL Normal 0.2-1.0 [facility] Comment on above: Performed By: #### C MP #### [facility] [address] [place] [address] Dr. Dwight Waters Calcium [Mass/Vol] 9.4 mg/dL Normal 8.5-10.1 [facility] Comment on above: Performed By: #### C MP #### [facility] [address] [address] [address] Dwight Waters Chloride [Moles/Vol] 106 mmol/L Normal 98-107 [facility] Comment on above: Performed By: #### C MP #### [facility] [address] [address] [address] Dwight Waters CO2 [Moles/Vol] 25.3 mmol/L Normal 21.0-32.0 [facility] Comment on above: Performed By: #### C MP #### [facility] [address] [address] [address] Dwight Waters Creatinine [Mass/Vol] 1.29 mg/dL Normal 0.70-1.30 [facility] Comment on above: Performed By: #### C MP #### [facility] [address] [address] [address] Dwight Waters EGFR-AF CONGOLESE >60 Normal >=60 [facility] Comment on above: Performed By: #### C MP #### [facility] [address] [address] [address] Dwight Waters EGFR-NON AF CONGOLESE 59 mL/min/1.73m2 Critically low >=60 [facility] Comment on above: Performed By: #### C MP #### [facility] [address] [address] [address] Dwight Waters Globulin (S) [Mass/Vol] 4.2 g/dL Normal [facility] Comment on above: Performed By: #### C MP #### [facility] [address] [address] [address] Dwight Waters Glucose [Mass/Vol] 106 mg/dL Normal 74-106 [facility] Comment on above: Performed By: #### C MP #### [facility] [address] [address] [address] Dwight Waters Potassium [Moles/Vol] 4.2 mmol/L Normal 3.5-5.1 [facility] Comment on above: Performed By: #### C MP #### [facility] [address] [address] [address] Dwight Waters Protein [Mass/Vol] 7.9 g/dL Normal 6.4-8.2 [facility] Comment on above: Performed By: #### C MP #### [facility] [address] [address] [address] Dwight Waters Sodium [Moles/Vol] 140 mmol/L Normal 136-145 [facility] Comment on above: Performed By: #### C MP #### [facility] [address] [address] [address] Dwight Waters Urea nitrogen [Mass/Vol] 22.0 mg/dL Critically high 7.0-18.0 [facility] Comment on above: Performed By: #### C MP #### [facility] [address] [place] [address] Dr. Dwight Waters Urea nitrogen/Creatinine [Mass ratio] 17.1 mg/mg Normal [facility] Comment on above: Performed By: #### C MP #### [facility] [address] [address] [address] Dwight Waters URINE MICROSCOPIC ONLYon BACTERIA TRACE Abnormal NONE SEEN [facility] Comment on above: Performed By: #### U RTPCR #### [facility] [address] [place] [address] Dr. Dwight Waters Bacteria identified Cx Nom (U) INDICATED Normal [facility] Comment on above: Performed By: #### U RTPCR #### [facility] [address] [place] [address] Dr. Dwight Waters CAST NONE SEEN Normal NONE SEEN [facility] Comment on above: Performed By: #### U RTPCR #### [facility] [address] [place] [address] Dr. Dwight Waters Crystals LM Nom (Urine sed) NONE SEEN Normal NONE SEEN [facility] Comment on above: Performed By: #### U RTPCR #### [facility] [address] [place] [address] Dr. Dwight Waters Epithelial cells LM Ql (Urine sed) NONE SEEN Normal NONE SEEN /RARE [facility] Comment on above: Performed By: #### U RTPCR #### [facility] [address] [place] [address] Dr. Dwight Waters MUCOUS NONE SEEN Normal NONE SEEN [facility] Comment on above: Performed By: #### U RTPCR #### [facility] [address] [place] [address] Dr. Dwight Waters RBC 5-10 Abnormal 0-2 [facility] Comment on above: Performed By: #### U RTPCR #### [facility] [address] [place] [address] Dr. Dwight Waters WBC 10-20 Abnormal NONE SEEN [facility] Comment on above: Performed By: #### U RTPCR #### [facility] [address] [place] [address] Dr. Dwight Waters ALLOSCREEN RECIPIENT (POST T X PRA)on 06-13-2022 AB SPECIFICITY CLASS COMMENT Antibody Specificity testing performed by [facility]. cPRA calculation based on identification of HLA antibody specificities at MFI >2000 and/or presence of CREG antibodies. [facility] Comment on above: Some of the reagents used for testing in the Clinical Histocompatibility Laboratory have yet to be approved by the FDA. Our certification by CLIA to perform high complexity tests allows us to use these reagents in the context of a stringent QC program, and obviates the need for FDA approval.Testing performed by the [facility] Clinical Histocompatibility Laboratory. [facility] number: [id number]. CLIA number: [id number], Director: Carlito Merchant, PhD, D([facility]). ANTIBODY SPECIFICITY INTERPRETATION Detected [facility] CLASS I SPECIFICITIES Not detected [facility] CLASS II SPECIFICITIES Not detected [facility] HLA Ab (S) 0 % 0 [facility] EXTRA MICROon 06-13-2022 [facility] URINE CULTUREOrdered By: Jah Upton on 06-13-2022 Bacteria identified Cx Nom (Unsp spec) Growth [facility] Bacteria identified Cx Nom (Unsp spec) 10,000-50,000 CFU/mL Mixed skin shimon [facility] Comment on above: Multiple bacterial m orphotypes present. Suggest appropriate recollection if clinically indicated. [facility] CBC,PLATELETSon 06-12-2022 Erythrocyte distribution width (RBC) [Ratio] 13.0 % 10.9 - 14.3 % [facility] Hematocrit (Bld) [Volume fraction] 43.2 % 39.6 - 48.8 % [facility] Hemoglobin (Bld) [Mass/Vol] 13.9 g/dL 13.4 - 16.8 g/dL [facility] Interpretation and review of laboratory results Normal [facility] MCH (RBC) [Entitic mass] 28.7 pg 26.1 - 33.3 pg [facility] MCHC (RBC) [Mass/Vol] 32.2 g/dL 31.9 - 36.5 g/dL [facility] MCV (RBC) [Entitic vol] 89.1 fL 79.0 - 94.5 fL [facility] Platelet mean volume (Bld) [Entitic vol] 10.5 fL 8.7 - 12.3 fL [facility] Platelets (Bld) [#/Vol] 269 10*3/uL 146 - 337 K/uL [facility] RBC (Bld) [#/Vol] 4.85 10*6/uL [facility] WBC (Bld) [#/Vol] 7.68 10*3/uL 3.73 - 10. 10 K/uL [facility] CHEM 7 (LYTES,BUN,CREA,GLUC) on 06-12-2022 Anion gap [Moles/Vol] 14 mmol/L 7 - 17 mmol/L [facility] Chloride [Moles/Vol] 106 mmol/L 98 - 10 8 mmol/L [facility] CO2 [Moles/Vol] 25 mmol/L 21 - 31 mmol/L [facility] Creatinine [Mass/Vol] 1.26 mg/dL 0.70 - 1.30 mg/dL [facility] GFR/1.73 sq M.predicted CKD-EPI (S/P/Bld) [Vol rate/Area] 69 >=60 mL/min/1.73m 2 [facility] Comment on above: Reported eGFR is bas ed on the CKD-EPI 2020 equation using creatinine, age, and sex. Glucose [Mass/Vol] 83 mg/dL 70 - 99 mg/dL [facility] Osmolality Calc [Osmolality] 295 [facility] Potassium [Moles/Vol] 3.8 mmol/L 3.5 - 5.0 mmol/L [facility] Sodium [Moles/Vol] 141 mmol/L 135 - 145 mmol/L [facility] Urea nitrogen [Mass/Vol] 18 mg/dL 7 - 25 mg/dL [facility] Urea nitrogen/Creatinine [Mass ratio] 14 mg/mg [facility] GGTon 06-12-2022 Gamma glutamyl transferase [Catalytic activity/Vol] 20 U/L 8 - 64 U/L [facility] HEMOGLOBIN [id number] By: Link [employer] on 06-12-2022 Average glucose Estimated from glycated hemoglobin (Bld) [Mass/Vol] 126 mg/dL [facility] HbA1c (Bld) [Mass fraction] 6.0 % High 4.7 - 5.6 % [facility] Interpretation and review of laboratory results Abnormal [facility] HEPATIC FUNCTION PANELon Albumin [Mass/Vol] 4.3 g/dL 3.5 - 5.0 g/dL [facility] ALP [Catalytic activity/Vol] 78 U/L 32 - 126 U/L [facility] ALT [Catalytic activity/Vol] 12 U/L 10 - 52 U/L [facility] AST [Catalytic activity/Vol] 16 U/L 10 - 39 U/L [facility] Bilirubin [Mass/Vol] 1.0 mg/dL <1.5 [facility] Bilirubin.direct [Mass/Vol] 0.2 mg/dL <0.3 [facility] Protein [Mass/Vol] 7.5 g/dL 6.4 - 8.3 g/dL [facility] No Panel Informationon 06-12 Interpretation and review of laboratory results Normal [facility] PTH INTACTOrdered By: Marli Lizarraga on 06-12-2022 Interpretation and review of laboratory results Abnormal [facility] Parathyrin.intact [Mass/Vol] 79.7 pg/mL High 14.0 - 72.0 pg/mL [facility] URINALYSIS REFLEX TO CULTURE PERFORMABLEon 06-12-2022 Appearance (U) Clear Clear [facility] Bacteria LM Ql (Urine sed) ABSENT ABSENT [facility] Color (U) Yellow Yellow [facility] Epithelial cells.squamous LM Ql (Urine sed) 1/hpf = 1+ 1/hpf = 1+, 2-5/hpf = 2+, 0/hpf = 0+, ABSENT [facility] Glucose Test strip (U) [Mass/Vol] Negative Negative [facility] Interpretation and review of laboratory results Abnormal [facility] Ketones (U) [Mass/Vol] Trace Abnormal Negative [facility] Leukocyte esterase Test strip Ql (U) Small Abnormal Negative [facility] Nitrite Ql (U) Negative Negative [facility] pH (U) 5.5 [pH] 5.0 - 7.0 [facility] Protein (U) [Mass/Vol] 30 mg/dL Abnormal Negative [facility] RBC (U) [#/Vol] Trace Abnormal Negative [facility] RBC LM.HPF (Urine sed) [#/Area] 0-2 0 - 2 /HPF [facility] Specific gravity (U) [Rel density] 1.026 [facility] Urobilinogen (U) [Mass/Vol] 0.2 E.U./dL 0.2 E.U/dL, 1.0 E.U/dL [facility] WBC LM.HPF (Urine sed) [#/Area] 10-20 Abnormal 0 - 5 /HPF [facility] URINE PROTEIN/CREA RATIO, RA NDOMon 06-12-2022 Creatinine (24H U) [Mass/Vol] 231.68 mg/dL [facility] Protein Unsp time (U) [Mass/Vol] 49 mg/dL [facility] Protein/Creatinine (U) [Mass ratio] 0.211 mg/g [facility] FK506 (TACROLIMUS) WHOLE BLO ODon 06-09-2022 Tacrolimus (FK506), Blood 9.8 ng/mL Normal 2.0-20.0 [facility] Comment on above: Result Comment: Trou gh (immediately following transplant) 15.0 . Trough (steady state, 2 weeks or more after transplant): 3.0 - 8.0 . Performed by LC-MS/MS technology. Performed By: #### U RTPCR #### [facility] [address] [place] [address] Dr. Dwight Waters ALBUMINon 06-06-2022 Albumin [Mass/Vol] 3.8 g/dL Normal 3.4-5.0 [facility] Comment on above: Performed By: #### C MP #### [facility] [address] [place] [address] Dr. Dwight Waters ALKALINE PHOSPHAon ALP [Catalytic activity/Vol] 82 U/L Normal 46-116 [facility] Comment on above: Performed By: #### C MP #### [facility] [address] [place] [address] Dr. Dwight Waters BILIRUBIN CONJUGATED (DIRECT )on 06-06-2022 BILI, CONJUGATED 0.2 mg/dL Normal 0.0-0.2 [facility] Comment on above: Performed By: #### C BC #### [facility] [address] [place] [address] Dr. Dwight Waters BILIRUBIN TOTALon 06-06-2022 Bilirubin [Mass/Vol] 1.0 mg/dL Normal 0.2-1.0 [facility] Comment on above: Performed By: #### C BC #### [facility] [address] [place] [address] Dr. Dwight Waters BUNon 06-06-2022 Urea nitrogen [Mass/Vol] 18.0 mg/dL Normal 7.0-18.0 [facility] Comment on above: Performed By: #### C BC #### [facility] [address] [place] [address] Dr. Dwight Waters CALCIUMon 06-06-2022 Calcium [Mass/Vol] 9.4 mg/dL Normal 8.5-10.1 [facility] Comment on above: Performed By: #### C MP #### [facility] [address] [place] [address] Dr. Dwight Waters CBC AUTO DIFFon 06-06-2022 BASO # 0.1 103/ul Normal 0.0-0.1 [facility] Comment on above: Performed By: #### U RTPCR #### [facility] [address] [place] [address] Dr. Dwight Waters Basophils/100 WBC (Bld) 0.8 % Normal 0.2-2.0 [facility] Comment on above: Performed By: #### U RTPCR #### [facility] [address] [place] [address] Dr. Dwight Waters EO # 0.3 103/ul Normal 0.0-0.7 [facility] Comment on above: Performed By: #### U RTPCR #### [facility] [address] [place] [address] Dr. Dwight Waters Eosinophils/100 WBC (Bld) 3.3 % Normal 0.9-7.0 [facility] Comment on above: Performed By: #### U RTPCR #### [facility] [address] [place] [address] Dr. Dwight Waters Erythrocyte distribution width (RBC) [Ratio] 12.4 % Normal 11.0-15.0 [facility] Comment on above: Performed By: #### U RTPCR #### [facility] [address] [place] [address] Dr. Dwight Waters Hematocrit (Bld) [Volume fraction] 45.1 % Normal 42.0-54.0 [facility] Comment on above: Performed By: #### U RTPCR #### [facility] [address] [place] [address] Dr. Dwight Waters Hemoglobin (Bld) [Mass/Vol] 14.4 g/dL Normal 14.0-18.0 [facility] Comment on above: Performed By: #### U RTPCR #### [facility] [address] [place] [address] Dr. Dwight Waters IG # 0.01 10e3/ul Normal 0.00-0.03 [facility] Comment on above: Performed By: #### U RTPCR #### [facility] [address] [place] [address] Dr. Dwight Waters IG % 0.1 % Normal 0.0-0.5 [facility] Comment on above: Performed By: #### U RTPCR #### [facility] [address] [place] [address] Dr. Dwight Waters LYMPH # 2.2 103/ul Normal 1.2-3.8 [facility] Comment on above: Performed By: #### U RTPCR #### [facility] [address] [place] [address] Dr. Dwight Waters Lymphocytes/100 WBC (Bld) 30.0 % Normal 20.5-60.0 [facility] Comment on above: Performed By: #### U RTPCR #### [facility] [address] [place] [address] Dr. Dwight Waters MANUAL DIFF REQ NO Normal [facility] Comment on above: Performed By: #### U RTPCR #### [facility] [address] [place] [address] Dr. Dwight Waters MCH (RBC) [Entitic mass] 28.2 pg Normal 25.9-34.0 [facility] Comment on above: Performed By: #### U RTPCR #### [facility] [address] [place] [address] Dr. Dwight Waters MCHC (RBC) [Mass/Vol] 31.9 g/dL Normal 29.9-35.2 [facility] Comment on above: Performed By: #### U RTPCR #### [facility] [address] [place] [address] Dr. Dwight Waters MCV (RBC) [Entitic vol] 88.3 fL Normal 80.0-94.0 [facility] Comment on above: Performed By: #### U RTPCR #### [facility] [address] [place] [address] Dr. Dwight Waters MONO # 0.6 103/ul Normal 0.3-0.8 [facility] Comment on above: Performed By: #### U RTPCR #### [facility] [address] [place] [address] Dr. Dwight Waters Monocytes/100 WBC (Bld) 8.2 % Normal 1.7-12.0 [facility] Comment on above: Performed By: #### U RTPCR #### [facility] [address] [place] [address] Dr. Dwight Waters NEUT # 4.3 103/ul Normal 1.4-6.5 [facility] Comment on above: Performed By: #### U RTPCR #### [facility] [address] [place] [address] Dr. Dwight Waters Neutrophils/100 WBC (Bld) 57.6 % Normal 43.0-75.0 [facility] Comment on above: Performed By: #### U RTPCR #### [facility] [address] [place] [address] Dr. Dwight Waters Platelet mean volume (Bld) [Entitic vol] 9.7 fL Normal 9.5-13.5 [facility] Comment on above: Performed By: #### U RTPCR #### [facility] [address] [place] [address] Dr. Dwight Waters PLT 297 103/ul Normal 150-450 [facility] Comment on above: Performed By: #### U RTPCR #### [facility] [address] [place] [address] Dr. Dwight Waters RBC 5.11 106/ul Normal 4.70-6.10 [facility] Comment on above: Performed By: #### U RTPCR #### [facility] [address] [place] [address] Dr. Dwight Waters WBC 7.5 103/ul Normal 4.0-11.0 [facility] Comment on above: Performed By: #### U RTPCR #### [facility] [address] [place] [address] Dr. Dwight Waters CHLORIDEon 06-06-2022 Chloride [Moles/Vol] 107 mmol/L Normal 98-107 [facility] Comment on above: Performed By: #### C BC #### [facility] [address] [place] [address] Dr. Dwight Waters CO2on 06-06-2022 CO2 [Moles/Vol] 27.4 mmol/L Normal 21.0-32.0 [facility] Comment on above: Performed By: #### C BC #### [facility] [address] [place] [address] Dr. Dwight Waters CREATININEon 06-06-2022 Creatinine [Mass/Vol] 1.20 mg/dL Normal 0.70-1.30 [facility] Comment on above: Performed By: #### C BC #### [facility] [address] [place] [address] Dr. Dwight Waters EGFR-AF CONGOLESE >60 Normal >=60 [facility] Comment on above: Performed By: #### C BC #### [facility] [address] [place] [address] Dr. Dwight Waters EGFR-NON AF CONGOLESE >60 Normal >=60 [facility] Comment on above: Performed By: #### C BC #### [facility] [address] [place] [address] Dr. Dwight Waters GGTon 06-06-2022 Gamma glutamyl transferase [Catalytic activity/Vol] 29 U/L Normal 15-85 [facility] Comment on above: Performed By: #### C BC #### [facility] [address] [place] [address] Dr. Dwight Waters GLUCOSE BLOODon 06-06-2022 Glucose [Mass/Vol] 112 mg/dL Critically high 74-106 [facility] Comment on above: Performed By: #### C BC #### [facility] [address] [place] [address] Dr. Dwight Waters MAGNESIUMon 06-06-2022 Magnesium [Mass/Vol] 1.3 mg/dL Critically low 1.8-2.4 [facility] Comment on above: Performed By: #### C MP #### [facility] [address] [place] [address] Dr. Dwight Waters NAon 06-06-2022 Sodium [Moles/Vol] 141 mmol/L Normal 136-145 [facility] Comment on above: Performed By: #### C MP #### [facility] [address] [place] [address] Dr. Dwight Waters PHOSPHORUSon 06-06-2022 Phosphate [Mass/Vol] 3.1 mg/dL Normal 2.6-4.7 [facility] Comment on above: Performed By: #### C MP #### [facility] [address] [place] [address] Dr. Dwight Waters POTASSIUMon 06-06-2022 Potassium [Moles/Vol] 4.3 mmol/L Normal 3.5-5.1 [facility] Comment on above: Performed By: #### C BC #### [facility] [address] [address] [address] Dwight Albert 06-06-2022 AST [Catalytic activity/Vol] 16 U/L Normal 15-37 [facility] Comment on above: Performed By: #### C BC #### [facility] [id number] Dwight Osei 06-06-2022 ALT [Catalytic activity/Vol] 50 U/L Normal 16-63 [facility] Comment on above: Performed By: #### C BC #### [facility] [address] [address] [address] Dwight Waters Bacteria identified Cx Nom ( Bld)on 05-21-2022 Bacteria identified Cx Nom (Unsp spec) NO GROWTH DAY 5 OF 5 [facility] Results may be compr omised due to volume of BACT\ALERT bottle exceeding 10mLs . The optimal blood volume is 8-10 mls per aerobic/anaerobic blood culture bottle. [facility] CALCIUMon 05-20-2022 Calcium [Mass/Vol] 9.1 mg/dL 8.6 - 10. 5 mg/dL [facility] CBC,PLATELETSon 05-20-2022 Erythrocyte distribution width (RBC) [Ratio] 12.5 % 10.9 - 14.3 % [facility] Hematocrit (Bld) [Volume fraction] 37.1 % Low 39.6 - 48.8 % [facility] Hemoglobin (Bld) [Mass/Vol] 12.3 g/dL Low 13.4 - 16.8 g/dL [facility] Interpretation and review of laboratory results Abnormal [facility] MCH (RBC) [Entitic mass] 28.9 pg 26.1 - 33.3 pg [facility] MCHC (RBC) [Mass/Vol] 33.2 g/dL 31.9 - 36.5 g/dL [facility] MCV (RBC) [Entitic vol] 87.3 fL 79.0 - 94.5 fL [facility] Platelet mean volume (Bld) [Entitic vol] 9.9 fL 8.7 - 12.3 fL [facility] Platelets (Bld) [#/Vol] 234 10*3/uL 146 - 337 K/uL [facility] RBC (Bld) [#/Vol] 4.25 10*6/uL Low [facility] WBC (Bld) [#/Vol] 6.31 10*3/uL 3.73 - 10. 10 K/uL [facility] CHEM 7 (LYTES,BUN,CREA,GLUC) on 05-20-2022 Anion gap [Moles/Vol] 15 mmol/L 7 - 17 mmol/L [facility] Chloride [Moles/Vol] 111 mmol/L High 98 - 10 8 mmol/L [facility] CO2 [Moles/Vol] 22 mmol/L 21 - 31 mmol/L [facility] Creatinine [Mass/Vol] 1.10 mg/dL 0.70 - 1.30 mg/dL [facility] GFR/1.73 sq M.predicted CKD-EPI (S/P/Bld) [Vol rate/Area] 81 >=60 mL/min/1.73m 2 [facility] Comment on above: Reported eGFR is bas ed on the CKD-EPI 2020 equation using creatinine, age, and sex. Glucose [Mass/Vol] 92 mg/dL 70 - 99 mg/dL [facility] Interpretation and review of laboratory results Abnormal [facility] Osmolality Calc [Osmolality] 302 [facility] Potassium [Moles/Vol] 4.4 mmol/L 3.5 - 5.0 mmol/L [facility] Sodium [Moles/Vol] 144 mmol/L 135 - 145 mmol/L [facility] Urea nitrogen [Mass/Vol] 18 mg/dL 7 - 25 mg/dL [facility] Urea nitrogen/Creatinine [Mass ratio] 16 mg/mg [facility] MAGNESIUMon 06-21-2022 Interpretation and review of laboratory results Abnormal [facility] Magnesium [Mass/Vol] 1.5 mg/dL Low 1.6 - 2 .6 mg/dL [facility] No Panel Informationon 05-20 Interpretation and review of laboratory results Normal [facility] PHOSPHATE, INORGANICon 05-20 Phosphate [Mass/Vol] 3.3 mg/dL 2.2 - 4 .6 mg/dL [facility] RF Unspecified body region V iews during [...] projections of kidneys, ureters, and bladder. FINDINGS: Qa Auditor images: Qa Auditor radiographs of the abdomen reveal a nonobstructive [...] Contrast refluxes up the ureter to the [place] right kidney that is grossly normal appearing. [...] projections of kidneys, ureters, and bladder. FINDINGS: Qa Auditor images: Qa Auditor radiographs of the abdomen reveal a nonobstructive [...] Contrast refluxes up the ureter to the [place] right kidney that is grossly normal appearing. [...] I have reviewed and approved this report. [facility] Radiology Study observation (narrative) [facility] RF Unspecified body region V iews during surgeryOrdered By: Lizz Campos on 05-20-2022 [facility] Work Phone: CALCIUMon 05-19-2022 Calcium [Mass/Vol] 9.2 mg/dL 8.6 - 10. 5 mg/dL [facility] Calcium [Mass/Vol] 8.6 mg/dL 8.6 - 10. 5 mg/dL [facility] CBC,PLATELETSon 05-19-2022 Erythrocyte distribution width (RBC) [Ratio] 12.4 % 10.9 - 14.3 % [facility] Hematocrit (Bld) [Volume fraction] 38.0 % Low 39.6 - 48.8 % [facility] Hemoglobin (Bld) [Mass/Vol] 12.0 g/dL Low 13.4 - 16.8 g/dL [facility] Interpretation and review of laboratory results Abnormal [facility] MCH (RBC) [Entitic mass] 28.6 pg 26.1 - 33.3 pg [facility] MCHC (RBC) [Mass/Vol] 31.6 g/dL Low 31.9 - 36.5 g/dL [facility] MCV (RBC) [Entitic vol] 90.5 fL 79.0 - 94.5 fL [facility] Platelet mean volume (Bld) [Entitic vol] 9.7 fL 8.7 - 12.3 fL [facility] Platelets (Bld) [#/Vol] 199 10*3/uL 146 - 337 K/uL [facility] RBC (Bld) [#/Vol] 4.20 10*6/uL Low [facility] WBC (Bld) [#/Vol] 6.81 10*3/uL 3.73 - 10. 10 K/uL [facility] CHEM 7 (LYTES,BUN,CREA,GLUC) on 05-19-2022 Anion gap [Moles/Vol] 13 mmol/L 7 - 17 mmol/L [facility] Chloride [Moles/Vol] 105 mmol/L 98 - 10 8 mmol/L [facility] CO2 [Moles/Vol] 30 mmol/L 21 - 31 mmol/L [facility] Creatinine [Mass/Vol] 1.39 mg/dL High 0.70 - 1.30 mg/dL [facility] GFR/1.73 sq M.predicted CKD-EPI (S/P/Bld) [Vol rate/Area] 61 >=60 mL/min/1.73m 2 [facility] Comment on above: Reported eGFR is bas ed on the CKD-EPI 2020 equation using creatinine, age, and sex. Glucose [Mass/Vol] 121 mg/dL High 70 - 99 mg/dL [facility] Interpretation and review of laboratory results Abnormal [facility] Osmolality Calc [Osmolality] 303 [facility] Potassium [Moles/Vol] 3.8 mmol/L 3.5 - 5.0 mmol/L [facility] Sodium [Moles/Vol] 144 mmol/L 135 - 145 mmol/L [facility] Urea nitrogen [Mass/Vol] 18 mg/dL 7 - 25 mg/dL [facility] Urea nitrogen/Creatinine [Mass ratio] 13 mg/mg [facility] Anion gap [Moles/Vol] 15 mmol/L 7 - 17 mmol/L [facility] Chloride [Moles/Vol] 106 mmol/L 98 - 10 8 mmol/L [facility] CO2 [Moles/Vol] 24 mmol/L 21 - 31 mmol/L [facility] Creatinine [Mass/Vol] 1.46 mg/dL High 0.70 - 1.30 mg/dL [facility] GFR/1.73 sq M.predicted CKD-EPI (S/P/Bld) [Vol rate/Area] 58 Low >=60 mL/min/1.73m 2 [facility] Comment on above: Reported eGFR is bas ed on the CKD-EPI 2021 equation using creatinine, age, and sex. Glucose [Mass/Vol] 103 mg/dL High 70 - 99 mg/dL [facility] Interpretation and review of laboratory results Abnormal [facility] Osmolality Calc [Osmolality] 298 [facility] Potassium [Moles/Vol] 3.9 mmol/L 3.5 - 5.0 mmol/L [facility] Sodium [Moles/Vol] 141 mmol/L 135 - 145 mmol/L [facility] Urea nitrogen [Mass/Vol] 21 mg/dL 7 - 25 mg/dL [facility] Urea nitrogen/Creatinine [Mass ratio] 14 mg/mg [facility] MAGNESIUMon 05-19-2022 Magnesium [Mass/Vol] 2.0 mg/dL 1.6 - 2 .6 mg/dL [facility] Magnesium [Mass/Vol] 1.7 mg/dL 1.6 - 2 .6 mg/dL [facility] No Panel Informationon 05-19 Interpretation and review of laboratory results Normal [facility] Interpretation and review of laboratory results Normal [facility] PHOSPHATE, INORGANICon 05-19 Phosphate [Mass/Vol] 3.0 mg/dL 2.2 - 4 .6 mg/dL [facility] Phosphate [Mass/Vol] 2.7 mg/dL 2.2 - 4 .6 mg/dL [facility] CALCIUMon 05-18-2022 Calcium [Mass/Vol] 9.1 mg/dL 8.6 - 10. 5 mg/dL [facility] CBC,PLATELETSon 05-18-2022 Erythrocyte distribution width (RBC) [Ratio] 12.5 % 10.9 - 14.3 % [facility] Hematocrit (Bld) [Volume fraction] 37.3 % Low 39.6 - 48.8 % [facility] Hemoglobin (Bld) [Mass/Vol] 11.9 g/dL Low 13.4 - 16.8 g/dL [facility] Interpretation and review of laboratory results Abnormal [facility] MCH (RBC) [Entitic mass] 28.9 pg 26.1 - 33.3 pg [facility] MCHC (RBC) [Mass/Vol] 31.9 g/dL 31.9 - 36.5 g/dL [facility] MCV (RBC) [Entitic vol] 90.5 fL 79.0 - 94.5 fL [facility] Platelet mean volume (Bld) [Entitic vol] 10.1 fL 8.7 - 12.3 fL [facility] Platelets (Bld) [#/Vol] 189 10*3/uL 146 - 337 K/uL [facility] RBC (Bld) [#/Vol] 4.12 10*6/uL Low [facility] WBC (Bld) [#/Vol] 10.19 10*3/uL High 3.73 - 10 .10 K/uL [facility] CHEM 7 (LYTES,BUN,CREA,GLUC) on 05-18-2022 Anion gap [Moles/Vol] 13 mmol/L 7 - 17 mmol/L [facility] Chloride [Moles/Vol] 102 mmol/L 98 - 10 8 mmol/L [facility] CO2 [Moles/Vol] 26 mmol/L 21 - 31 mmol/L [facility] Creatinine [Mass/Vol] 1.91 mg/dL High 0.70 - 1.30 mg/dL [facility] GFR/1.73 sq M.predicted CKD-EPI (S/P/Bld) [Vol rate/Area] 42 Low >=60 mL/min/1.73m 2 [facility] Comment on above: Reported eGFR is bas ed on the CKD-EPI 2020 equation using creatinine, age, and sex. Glucose [Mass/Vol] 158 mg/dL High 70 - 99 mg/dL [facility] Osmolality Calc [Osmolality] 297 [facility] Potassium [Moles/Vol] 4.0 mmol/L 3.5 - 5.0 mmol/L [facility] Sodium [Moles/Vol] 137 mmol/L 135 - 145 mmol/L [facility] Urea nitrogen [Mass/Vol] 30 mg/dL High 7 - 25 mg/dL [facility] Urea nitrogen/Creatinine [Mass ratio] 16 mg/mg [facility] CHEM 7 (LYTES,BUN,CREA,GLUC) Ordered By: Tamiko Thapa on 05-18-2022 Anion gap [Moles/Vol] 13 mmol/L 7 - 17 mmol/L [facility] Chloride [Moles/Vol] 104 mmol/L 98 - 10 8 mmol/L [facility] CO2 [Moles/Vol] 26 mmol/L 21 - 31 mmol/L [facility] Creatinine [Mass/Vol] 2.96 mg/dL High 0.70 - 1.30 mg/dL [facility] GFR/1.73 sq M.predicted CKD-EPI (S/P/Bld) [Vol rate/Area] 25 Low >=60 mL/min/1.73m 2 [facility] Comment on above: Reported eGFR is bas ed on the CKD-EPI 2020 equation using creatinine, age, and sex. Glucose [Mass/Vol] 136 mg/dL High 70 - 99 mg/dL [facility] Interpretation and review of laboratory results Abnormal [facility] Osmolality Calc [Osmolality] 304 [facility] Potassium [Moles/Vol] 4.2 mmol/L 3.5 - 5.0 mmol/L [facility] Sodium [Moles/Vol] 139 mmol/L 135 - 145 mmol/L [facility] Urea nitrogen [Mass/Vol] 41 mg/dL High 7 - 25 mg/dL [facility] Urea nitrogen/Creatinine [Mass ratio] 14 mg/mg [facility] MAGNESIUMon 05-18-2022 Magnesium [Mass/Vol] 2.2 mg/dL 1.6 - 2 .6 mg/dL [facility] Interpretation and review of laboratory results Normal [facility] Magnesium [Mass/Vol] 1.7 mg/dL 1.6 - 2 .6 mg/dL [facility] No Panel Informationon 05-18 Interpretation and review of laboratory results Abnormal [facility] Interpretation and review of laboratory results Normal [facility] PHOSPHATE, INORGANICon 05-18 Phosphate [Mass/Vol] 2.0 mg/dL Low 2.2 - 4 .6 mg/dL [facility] Interpretation and review of laboratory results Normal [facility] Phosphate [Mass/Vol] 2.8 mg/dL 2.2 - 4 .6 mg/dL [facility] PT,INR,PTTon 05-18-2022 aPTT Coag (PPP) [Time] 31.0 s [facility] INR Coag (Bld) [Relative time] 1.1 {INR} [facility] Interpretation and review of laboratory results Abnormal [facility] PT Coag (PPP) [Time] 14.4 s High [facility] URINE CULTUREOrdered By: Sylvia Campos on 05-18-2022 Bacteria identified Cx Nom (Unsp spec) No Growth [facility] CBC,PLATELETSon 05-17-2022 Erythrocyte distribution width (RBC) [Ratio] 12.8 % 10.9 - 14.3 % [facility] Hematocrit (Bld) [Volume fraction] 42.8 % 39.6 - 48.8 % [facility] Hemoglobin (Bld) [Mass/Vol] 13.3 g/dL Low 13.4 - 16.8 g/dL [facility] Interpretation and review of laboratory results Abnormal [facility] MCH (RBC) [Entitic mass] 28.9 pg 26.1 - 33.3 pg [facility] MCHC (RBC) [Mass/Vol] 31.1 g/dL Low 31.9 - 36.5 g/dL [facility] MCV (RBC) [Entitic vol] 92.8 fL 79.0 - 94.5 fL [facility] Platelet mean volume (Bld) [Entitic vol] 10.3 fL 8.7 - 12.3 fL [facility] Hospital Platelets (Bld) [#/Vol] 188 10*3/uL 146 - 337 K/uL [facility] RBC (Bld) [#/Vol] 4.61 10*6/uL [facility] WBC (Bld) [#/Vol] 16.61 10*3/uL High 3.73 - 10 .10 K/uL [facility] CHEM 7 (LYTES,BUN,CREA,GLUC) Ordered By: Kaylah Mc on 05-17-2022 Anion gap [Moles/Vol] 15 mmol/L 7 - 17 mmol/L [facility] Chloride [Moles/Vol] 103 mmol/L 98 - 10 8 mmol/L [facility] CO2 [Moles/Vol] 23 mmol/L 21 - 31 mmol/L [facility] Creatinine [Mass/Vol] 5.95 mg/dL High 0.70 - 1.30 mg/dL [facility] GFR/1.73 sq M.predicted CKD-EPI (S/P/Bld) [Vol rate/Area] 11 Low >=60 mL/min/1.73m 2 [facility] Comment on above: Reported eGFR is bas ed on the CKD-EPI 2020 equation using creatinine, age, and sex. Glucose [Mass/Vol] 165 mg/dL High 70 - 99 mg/dL [facility] Interpretation and review of laboratory results Abnormal [facility] Osmolality Calc [Osmolality] 305 [facility] Potassium [Moles/Vol] 4.6 mmol/L 3.5 - 5.0 mmol/L [facility] Sodium [Moles/Vol] 136 mmol/L 135 - 145 mmol/L [facility] Urea nitrogen [Mass/Vol] 52 mg/dL High 7 - 25 mg/dL [facility] Urea nitrogen/Creatinine [Mass ratio] 9 mg/mg [facility] CHEM 7 (LYTES,BUN,CREA,GLUC) Ordered By: Kehinde Gutierrez on 05-17-2022 Anion gap [Moles/Vol] 24 mmol/L High 7 - 17 mmol/L [facility] Chloride [Moles/Vol] 100 mmol/L 98 - 10 8 mmol/L [facility] CO2 [Moles/Vol] 16 mmol/L Low 21 - 31 mmol/L [facility] Creatinine [Mass/Vol] 8.08 mg/dL High 0.70 - 1.30 mg/dL [facility] GFR/1.73 sq M.predicted CKD-EPI (S/P/Bld) [Vol rate/Area] 7 Low >=60 mL/min/1.73m 2 [facility] Comment on above: Reported eGFR is bas ed on the CKD-EPI 2020 equation using creatinine, age, and sex. Glucose [Mass/Vol] 164 mg/dL High 70 - 99 mg/dL [facility] Interpretation and review of laboratory results Abnormal [facility] Osmolality Calc [Osmolality] 305 [facility] Potassium [Moles/Vol] 5.0 mmol/L 3.5 - 5.0 mmol/L [facility] Sodium [Moles/Vol] 135 mmol/L 135 - 145 mmol/L [facility] Urea nitrogen [Mass/Vol] 56 mg/dL High 7 - 25 mg/dL [facility] Urea nitrogen/Creatinine [Mass ratio] 7 mg/mg [facility] LAVENDER TOP TUBEon 05-17-20 [facility] MAGNESIUMon 05-17-2022 Interpretation and review of laboratory results Normal [facility] Magnesium [Mass/Vol] 1.8 mg/dL 1.6 - 2 .6 mg/dL [facility] Interpretation and review of laboratory results Normal [facility] Magnesium [Mass/Vol] 1.6 mg/dL 1.6 - 2 .6 mg/dL [facility] No Panel Informationon 05-17 [facility] PHOSPHATE, INORGANICon 05-17 Interpretation and review of laboratory results Abnormal [facility] Phosphate [Mass/Vol] 4.9 mg/dL High 2.2 - 4 .6 mg/dL [facility] PT,INR,PTTon 05-17-2022 aPTT Coag (PPP) [Time] 33.0 s [facility] INR Coag (Bld) [Relative time] 1.3 {INR} High [facility] Interpretation and review of laboratory results Abnormal [facility] PT Coag (PPP) [Time] 15.7 s High [facility] Portable XR Chest Viewson IMPRESSION: No acute [...] Stable cardiomegaly. IMPRESSION IMPRESSION: No acute findings. [facility] Radiology Study observation (narrative) [facility] Portable XR Chest ViewsOrder ed By: David Sanz on 05-17-2022 [facility] Work Phone: URINALYSISOrdered By: Michael patel Ma on 05-17-2022 Appearance (U) Cloudy Abnormal Clear [facility] Comment on above: Results may be inacc urate due to color interference. Clinical correlation recommended. Bacteria LM Ql (Urine sed) ABSENT ABSENT [facility] Color (U) Red Abnormal Yellow [facility] Comment on above: Results may be inacc urate due to color interference. Clinical correlation recommended. Epithelial cells.squamous LM Ql (Urine sed) ABSENT 1/hpf = 1+, 2-5/hpf = 2+, 0/hpf = 0+, ABSENT [facility] Glucose Test strip (U) [Mass/Vol] Negative Negative [facility] Comment on above: Results may be inacc urate due to color interference. Clinical correlation recommended. Interpretation and review of laboratory results Abnormal [facility] Ketones (U) [Mass/Vol] Trace Abnormal Negative [facility] Comment on above: Results may be inacc urate due to color interference. Clinical correlation recommended. Leukocyte esterase Test strip Ql (U) Large Abnormal Negative [facility] Comment on above: Results may be inacc urate due to color interference. Clinical correlation recommended. Nitrite Ql (U) Negative Negative [facility] Comment on above: Results may be inacc urate due to color interference. Clinical correlation recommended. pH (U) 5.0 [pH] 5.0 - 7.0 [facility] Comment on above: Results may be inacc urate due to color interference. Clinical correlation recommended. Protein (U) [Mass/Vol] mg/dL Abnormal Negative [facility] Comment on above: Results may be inacc urate due to color interference. Clinical correlation recommended. RBC (U) [#/Vol] Large Abnormal Negative [facility] Comment on above: Results may be inacc urate due to color interference. Clinical correlation recommended. RBC LM.HPF (Urine sed) [#/Area] /[HPF] Abnormal 0 - 2 /HPF [facility] Specific gravity (U) [Rel density] 1.016 [facility] Comment on above: Results may be inacc urate due to color interference. Clinical correlation recommended. Urobilinogen (U) [Mass/Vol] 0.2 E.U./dL 0.2 E.U/dL, 1.0 E.U/dL [facility] Comment on above: Results may be inacc urate due to color interference. Clinical correlation recommended. WBC LM.HPF (Urine sed) [#/Area] /[HPF] Abnormal 0 - 5 /HPF [facility] URINE CULTUREOrdered By: Tyler Tiwari on 05-17-2022 Bacteria identified Cx Nom (Unsp spec) No Growth [facility] CBC,PLATELETSon 05-16-2022 Erythrocyte distribution width (RBC) [Ratio] 12.9 % 10.9 - 14.3 % [facility] Hematocrit (Bld) [Volume fraction] 46.5 % 39.6 - 48.8 % [facility] Hemoglobin (Bld) [Mass/Vol] 14.7 g/dL 13.4 - 16.8 g/dL [facility] Interpretation and review of laboratory results Abnormal [facility] MCH (RBC) [Entitic mass] 28.3 pg 26.1 - 33.3 pg [facility] MCHC (RBC) [Mass/Vol] 31.6 g/dL Low 31.9 - 36.5 g/dL [facility] MCV (RBC) [Entitic vol] 89.6 fL 79.0 - 94.5 fL [facility] Platelet mean volume (Bld) [Entitic vol] 10.3 fL 8.7 - 12.3 fL [facility] Platelets (Bld) [#/Vol] 188 10*3/uL 146 - 337 K/uL [facility] RBC (Bld) [#/Vol] 5.19 10*6/uL [facility] WBC (Bld) [#/Vol] 12.55 10*3/uL High 3.73 - 10 .10 K/uL [facility] CHEM 7 (LYTES,BUN,CREA,GLUC) Ordered By: Alma Pena on 05-16-2022 Anion gap [Moles/Vol] 14 mmol/L 7 - 17 mmol/L [facility] Chloride [Moles/Vol] 103 mmol/L 98 - 10 8 mmol/L [facility] CO2 [Moles/Vol] 22 mmol/L 21 - 31 mmol/L [facility] Creatinine [Mass/Vol] 6.09 mg/dL High 0.70 - 1.30 mg/dL [facility] GFR/1.73 sq M.predicted CKD-EPI (S/P/Bld) [Vol rate/Area] 10 Low >=60 mL/min/1.73m 2 [facility] Comment on above: Reported eGFR is bas ed on the CKD-EPI 2020 equation using creatinine, age, and sex. Glucose [Mass/Vol] 134 mg/dL High 70 - 99 mg/dL [facility] Interpretation and review of laboratory results Abnormal [facility] Osmolality Calc [Osmolality] 298 [facility] Potassium [Moles/Vol] 4.9 mmol/L 3.5 - 5.0 mmol/L [facility] Sodium [Moles/Vol] 134 mmol/L Low 135 - 145 mmol/L [facility] Comment on above: Results inconsistent with previous results Urea nitrogen [Mass/Vol] 49 mg/dL High 7 - 25 mg/dL [facility] Urea nitrogen/Creatinine [Mass ratio] 8 mg[facility] 7 (LYTES,BUN,CREA,GLUC) on 05-16-2022 Anion gap [Moles/Vol] 17 mmol/L 7 - 17 mmol/L [facility] Chloride [Moles/Vol] 106 mmol/L 98 - 10 8 mmol/L [facility] CO2 [Moles/Vol] 22 mmol/L 21 - 31 mmol/L [facility] Creatinine [Mass/Vol] 5.23 mg/dL High 0.70 - 1.30 mg/dL [facility] GFR/1.73 sq M.predicted CKD-EPI (S/P/Bld) [Vol rate/Area] 13 Low >=60 mL/min/1.73m 2 [facility] Comment on above: Reported eGFR is bas ed on the CKD-EPI 2020 equation using creatinine, age, and sex. Glucose [Mass/Vol] 116 mg/dL High 70 - 99 mg/dL [facility] Interpretation and review of laboratory results Abnormal [facility] Osmolality Calc [Osmolality] 305 [facility] Potassium [Moles/Vol] 4.6 mmol/L 3.5 - 5.0 mmol/L [facility] Sodium [Moles/Vol] 140 mmol/L 135 - 145 mmol/L [facility] Urea nitrogen [Mass/Vol] 42 mg/dL High 7 - 25 mg/dL [facility] Urea nitrogen/Creatinine [Mass ratio] 8 mg/mg [facility] EXTRA MICROon 05-16-2022 [facility] LT BLUE TOP TUBEon 2 [facility] LYTES (NA, K, CL) - URINE - RANDOMon 05-16-2022 Chloride (24H U) [Moles/Vol] 68 mmol/L [facility] Potassium (24H U) [Moles/Vol] 36.7 mmol/L [facility] Sodium (24H U) [Moles/Vol] 55 mmol/L [facility] The reference range has not been established for random urine specimens. The test result should be integrated into the clinical context for interpretation. [facility] MAGNESIUMon 05-16-2022 Interpretation and review of laboratory results Normal [facility] Magnesium [Mass/Vol] 1.7 mg/dL 1.6 - 2 .6 mg/dL [facility] NOVEL CORONAVIRUS PCROrdered By: Edson Candelario on 05-16-2022 SARS-CoV-2 (COVID-19) RNA ESTELITA+probe Ql (Unsp spec) Not detected NOT DETECTED [facility] Comment on above: [facility] Negative results [...] use authorization for use by authorized laboratories. [facility] No Panel Informationon 05-16 [facility] OSMOLALITY, URINEon 05-16-20 Interpretation and review of laboratory results Normal [facility] Osmolality (U) [Osmolality] 320 mosm/kg [facility] The reference range has not been established for random urine specimens. The test result should be integrated into the clinical context for interpretation. [facility] PROCALCITONINon 05-16-2022 Interpretation and review of laboratory results Normal [facility] Procalcitonin [Mass/Vol] 0.18 ng/mL <0.50 [facility] Comment on above: Procalcitonin is an [...] and trend procalcitonin in various clinical settings. [email or web address] [email or web address] Two common cutoffs associated with bacterial infections are as follows. Respiratory tract infections: >0.25 ng/mL Sepsis/septic shock: >0.5 ng/mL Procalcitonin should not be used alone as a diagnostic tool, however. All procalcitonin results should be interpreted in association with the patients clinical condition and all laboratory findings. [facility] PT,INR,PTTon 05-16-2022 aPTT Coag (PPP) [Time] 30.3 s [facility] INR Coag (Bld) [Relative time] 1.1 {INR} [facility] Interpretation and review of laboratory results Normal [facility] PT Coag (PPP) [Time] 14.1 s [facility] SARS-CoV-2 (COVID-19) RNA NA A+probe Ql (Unsp spec)Ordered By: Edson Candelario on 05-16-2022 Interpretation and review of laboratory results Normal [facility] TACROLIMUS LEVEL, TROUGH (OR E DRUG LEVEL)Ordered By: Mariama Nick on 05-16-2022 Interpretation and review of laboratory results Normal [facility] Tacrolimus (Bld) [Mass/Vol] 4.1 ng/mL Bone Marrow Transplant: 4.0-12.0, Therapeutic: 5.0-15.0 [facility] Method performed is a chemiluminescent microparticle immunoasssay on the [employer] i2000. The range is based on experience at [facility] and users should be aware that target concentrations vary widely depending on concomitant therapy, time post-transplant, and desired degree of immunosuppression. [facility] URINE PROTEIN/CREA RATIO, RA ARPITOMon 05-16-2022 Creatinine (24H U) [Mass/Vol] 59.82 mg/dL [facility] Protein Unsp time (U) [Mass/Vol] 111 mg/dL [facility] Protein/Creatinine (U) [Mass ratio] 1.856 mg/g [facility] US for transplanted [...] appearing vascular flow in the transplant kidney. [facility] Radiology Study observation (narrative) [facility] US for transplanted kidney l imitedOrdered By: Rosendo Matute on 05-16-2022 [facility] Work Phone: CBC AND ELECTRONIC DIFFon Basophils (Bld) [#/Vol] 10*3/uL 0.00 - 0.09 K/uL [facility] Basophils/100 WBC (Bld) 0.2 % [facility] Differential cell count method Nom (Bld) Electronic Differential [facility] Eosinophils (Bld) [#/Vol] 10*3/uL 0.00 - 0.48 K/uL [facility] Eosinophils/100 WBC (Bld) 0.0 % [facility] Erythrocyte distribution width (RBC) [Ratio] 12.8 % 10.9 - 14.3 % [facility] Hematocrit (Bld) [Volume fraction] 46.0 % 39.6 - 48.8 % [facility] Hemoglobin (Bld) [Mass/Vol] 14.6 g/dL 13.4 - 16.8 g/dL [facility] Immature granulocytes (Bld) [#/Vol] 0.07 10*3/uL <=0.08 [facility] Immature granulocytes/100 WBC (Bld) 0.4 % [facility] Interpretation and review of laboratory results Abnormal [facility] Lymphocytes (Bld) [#/Vol] 1.49 10*3/uL 0.83 - 3.57 K/uL [facility] Lymphocytes/100 WBC (Bld) 9.4 % [facility] MCH (RBC) [Entitic mass] 28.2 pg 26.1 - 33.3 pg [facility] MCHC (RBC) [Mass/Vol] 31.7 g/dL Low 31.9 - 36.5 g/dL [facility] MCV (RBC) [Entitic vol] 89.0 fL 79.0 - 94.5 fL [facility] Monocytes (Bld) [#/Vol] 1.45 10*3/uL High 0.24 - 0.93 K/uL [facility] Monocytes/100 WBC (Bld) 9.2 % [facility] Neutrophils (Bld) [#/Vol] 12.77 10*3/uL High 1.57 - 6.19 K/uL [facility] Nucleated RBC/100 WBC (Bld) [Ratio] 0.0 % <=0.2 /100 WBC [facility] Platelet mean volume (Bld) [Entitic vol] 9.9 fL 8.7 - 12.3 fL [facility] Platelets (Bld) [#/Vol] 250 10*3/uL 146 - 337 K/uL [facility] RBC (Bld) [#/Vol] 5.17 10*6/uL [facility] Segmented neutrophils/100 WBC (Bld) 80.8 % [facility] WBC (Bld) [#/Vol] 15.81 10*3/uL High 3.73 - 10 .10 K/uL [facility] CBC AUTO DIFFon 05-15-2022 BASO # 0.0 103/ul Normal 0.0-0.1 [facility] Comment on above: Performed By: #### C BC #### [facility] [address] [address] [address] Dwight Waters Basophils/100 WBC (Bld) 0.3 % Normal 0.2-2.0 [facility] Comment on above: Performed By: #### C BC #### [facility] [address] [place] [address] Dr. Dwight Waters EO # 0.1 103/ul Normal 0.0-0.7 [facility] Comment on above: Performed By: #### C BC #### [facility] [address] [place] [address] Dr. Dwight Waters Eosinophils/100 WBC (Bld) 0.8 % Critically low 0.9-7.0 [facility] Comment on above: Performed By: #### C BC #### [facility] [address] [place] [address] Dr. Dwight Waters Erythrocyte distribution width (RBC) [Ratio] 12.7 % Normal 11.0-15.0 [facility] Comment on above: Performed By: #### C BC #### [facility] [address] [place] [address] Dr. Dwight Waters Hematocrit (Bld) [Volume fraction] 43.5 % Normal 42.0-54.0 [facility] Comment on above: Performed By: #### C BC #### [facility] [address] [place] [address] Dr. Dwight Waters Hemoglobin (Bld) [Mass/Vol] 14.4 g/dL Normal 14.0-18.0 [facility] Comment on above: Performed By: #### C BC #### [facility] [address] [place] [address] Dr. Dwight Waters IG # 0.02 10e3/ul Normal 0.00-0.03 [facility] Comment on above: Performed By: #### C BC #### [facility] [address] [place] [address] Dr. Dwight Waters IG % 0.2 % Normal 0.0-0.5 [facility] Comment on above: Performed By: #### C BC #### [facility] [address] [place] [address] Dr. Dwight Waters LYMPH # 1.5 103/ul Normal 1.2-3.8 [facility] Comment on above: Performed By: #### C BC #### [facility] [address] [place] [address] Dr. Dwight Waters Lymphocytes/100 WBC (Bld) 12.5 % Critically low 20.5-60.0 [facility] Comment on above: Performed By: #### C BC #### [facility] [address] [place] [address] Dr. Dwight Waters MANUAL DIFF REQ NO Normal [facility] Comment on above: Performed By: #### C BC #### [facility] [address] [place] [address] Dr. Dwight Waters MCH (RBC) [Entitic mass] 28.6 pg Normal 25.9-34.0 [facility] Comment on above: Performed By: #### C BC #### [facility] [address] [place] [address] Dr. Dwight Waters MCHC (RBC) [Mass/Vol] 33.1 g/dL Normal 29.9-35.2 [facility] Comment on above: Performed By: #### C BC #### [facility] [address] [place] [address] Dr. Dwight Waters MCV (RBC) [Entitic vol] 86.3 fL Normal 80.0-94.0 [facility] Comment on above: Performed By: #### C BC #### [facility] [address] [place] [address] Dr. Dwight Waters MONO # 1.0 103/ul Critically high 0.3-0.8 [facility] Comment on above: Performed By: #### C BC #### [facility] [address] [place] [address] Dr. Dwight Waters Monocytes/100 WBC (Bld) 8.2 % Normal 1.7-12.0 [facility] Comment on above: Performed By: #### C BC #### [facility] [address] [place] [address] Dr. Dwight Waters NEUT # 9.1 103/ul Critically high 1.4-6.5 [facility] Comment on above: Performed By: #### C BC #### [facility] [address] [address] [address] Dwight Waters Neutrophils/100 WBC (Bld) 78.0 % Critically high 43.0-75.0 [facility] Comment on above: Performed By: #### C BC #### [facility] [address] [address] [address] Dwight Waters Platelet mean volume (Bld) [Entitic vol] 9.8 fL Normal 9.5-13.5 [facility] Comment on above: Performed By: #### C BC #### [facility] [address] [address] [address] Dwight Waters PLT 251 103/ul Normal 150-450 [facility] Comment on above: Performed By: #### C BC #### [facility] [address] [address] [address] Dwight Waters RBC 5.04 106/ul Normal 4.70-6.10 [facility] Comment on above: Performed By: #### C BC #### [facility] [address] [address] [address] Dwight Waters WBC 11.6 103/ul Critically high 4.0-11.0 [facility] Comment on above: Performed By: #### C BC #### [facility] [address] [place] [address] Dr. Dwight Waters CHEM 6 (LYTES, BUN CREA)on 0 05-15-2022 Anion gap [Moles/Vol] 12 mmol/L 7 - 17 mmol/L [facility] Chloride [Moles/Vol] 105 mmol/L 98 - 10 8 mmol/L [facility] CO2 [Moles/Vol] 26 mmol/L 21 - 31 mmol/L [facility] Creatinine [Mass/Vol] 2.85 mg/dL High 0.70 - 1.30 mg/dL [facility] GFR/1.73 sq M.predicted CKD-EPI (S/P/Bld) [Vol rate/Area] 26 Low >=60 mL/min/1.73m 2 [facility] Comment on above: Reported eGFR is bas ed on the CKD-EPI 2020 equation using creatinine, age, and sex. Potassium [Moles/Vol] 4.6 mmol/L 3.5 - 5.0 mmol/L [facility] Sodium [Moles/Vol] 138 mmol/L 135 - 145 mmol/L [facility] Urea nitrogen [Mass/Vol] 32 mg/dL High 7 - 25 mg/dL [facility] Urea nitrogen/Creatinine [Mass ratio] 11 mg/mg [facility] CT ABD/PELVIS WO CONon 05-15 CT ABD/PELVIS [...] transplanted kidney with moderate right-sided hydronephrosis. Atrophic [place] kidneys with moderate right-sided hydronephrosis. Multiple nonobstructive [...] transplanted kidney with moderate right-sided hydronephrosis. Atrophic [place] kidneys with moderate right-sided hydronephrosis. Multiple nonobstructive right renal calculi measuring up to 8 mm. FOLLOW-UP: Follow-up as clinically indicated. Electronically authenticated by: LYNDSAY JEAN Date: 2022-05-15 05:04 Normal [facility] Covid-19 PCR (CVDTB)on 04-30 SARS-CoV-2 (COVID-19) RNA ESTELITA+probe Ql (Unsp spec) Not detected Normal NOT DETECTED [facility] Comment on above: Result Comment: When diagnostic [...] for this test is supported by the [place] of Health and Human Service's declaration that [...] used). Performed By: #### U RTPCR #### [facility] [address] [place] [address] Dr. Dwight Waters GLUCOSEon 05-15-2022 Glucose [Mass/Vol] 141 mg/dL High 70 - 99 mg/dL [facility] GOLD TOP TUBEon 05-15-2022 [facility] HEPATIC FUNCTION PANELon Albumin [Mass/Vol] 4.3 g/dL 3.5 - 5.0 g/dL [facility] ALP [Catalytic activity/Vol] 85 U/L 32 - 126 U/L [facility] ALT [Catalytic activity/Vol] 13 U/L 10 - 52 U/L [facility] AST [Catalytic activity/Vol] 15 U/L 10 - 39 U/L [facility] Bilirubin [Mass/Vol] 0.8 mg/dL <1.5 [facility] Bilirubin.direct [Mass/Vol] 0.2 mg/dL <0.3 [facility] Interpretation and review of laboratory results Normal [facility] Protein [Mass/Vol] 7.3 g/dL 6.4 - 8.3 g/dL [facility] LIPASEon 05-15-2022 Lipase [Catalytic activity/Vol] 8 U/L Low 11 - 82 U/L [facility] No Panel Informationon 05-15 Interpretation and review of laboratory results Abnormal [facility] PROF 14(COMP METB)on 022 Albumin [Mass/Vol] 3.8 g/dL Normal 3.4-5.0 [facility] Comment on above: Performed By: #### U RTPCR #### [facility] [address] [place] [address] Dr. Dwight Waters Albumin/Globulin [Mass ratio] 1.1 {ratio} Normal [facility] Comment on above: Performed By: #### U RTPCR #### [facility] [address] [place] [address] Dr. Dwight Waters ALP [Catalytic activity/Vol] 92 U/L Normal 46-116 [facility] Comment on above: Performed By: #### U RTPCR #### [facility] [address] [place] [address] Dr. Dwight Waters ALT [Catalytic activity/Vol] 25 U/L Normal 16-63 [facility] Comment on above: Performed By: #### U RTPCR #### [facility] [address] [place] [address] Dr. Dwight Waters Anion gap [Moles/Vol] 14.6 mmol/L Normal [facility] Comment on above: Performed By: #### U RTPCR #### [facility] [address] [place] [address] Dr. Dwight Waters AST [Catalytic activity/Vol] 17 U/L Normal 15-37 [facility] Comment on above: Performed By: #### U RTPCR #### [facility] [address] [place] [address] Dr. Dwight Waters Bilirubin [Mass/Vol] 0.6 mg/dL Normal 0.2-1.0 [facility] Comment on above: Performed By: #### U RTPCR #### [facility] [address] [place] [address] Dr. Dwight Waters Calcium [Mass/Vol] 9.9 mg/dL Normal 8.5-10.1 [facility] Comment on above: Performed By: #### U RTPCR #### [facility] [address] [place] [address] Dr. Dwight Waters Chloride [Moles/Vol] 106 mmol/L Normal 98-107 [facility] Comment on above: Performed By: #### U RTPCR #### [facility] [address] [place] [address] Dr. Dwight Waters CO2 [Moles/Vol] 24.2 mmol/L Normal 21.0-32.0 [facility] Comment on above: Performed By: #### U RTPCR #### [facility] [address] [place] [address] Dr. Dwight Waters Creatinine [Mass/Vol] 1.58 mg/dL Critically high 0.70-1.30 [facility] Comment on above: Performed By: #### U RTPCR #### [facility] [address] [place] [address] Dr. Dwight Waters EGFR-AF CONGOLESE 56 mL/min/1.73m2 Critically low >=60 [facility] Comment on above: Performed By: #### U RTPCR #### [facility] [address] [place] [address] Dr. Dwight Waters EGFR-NON AF CONGOLESE 46 mL/min/1.73m2 Critically low >=60 [facility] Comment on above: Performed By: #### U RTPCR #### [facility] [address] [place] [address] Dr. Dwight Waters Globulin (S) [Mass/Vol] 3.5 g/dL Normal [facility] Comment on above: Performed By: #### U RTPCR #### [facility] [address] [place] [address] Dr. Dwight Waters Glucose [Mass/Vol] 162 mg/dL Critically high 74-106 T [facility] Comment on above: Performed By: #### U RTPCR #### [facility] [address] [place] [address] Dr. Dwight Waters Potassium [Moles/Vol] 3.8 mmol/L Normal 3.5-5.1 [facility] Comment on above: Performed By: #### U RTPCR #### [facility] [address] [address] [address] Dwight Waters Protein [Mass/Vol] 7.3 g/dL Normal 6.4-8.2 [facility] Comment on above: Performed By: #### U RTPCR #### [facility] [address] [address] [address] Dwight Waters Sodium [Moles/Vol] 141 mmol/L Normal 136-145 [facility] Comment on above: Performed By: #### U RTPCR #### [facility] [address] [place] [address] Dr. Dwight Waters Urea nitrogen [Mass/Vol] 22.0 mg/dL Critically high 7.0-18.0 [facility] Comment on above: Performed By: #### U RTPCR #### [facility] [address] [place] [address] Dr. Dwight Waters Urea nitrogen/Creatinine [Mass ratio] 13.9 mg/mg Normal [facility] Comment on above: Performed By: #### U RTPCR #### [facility] [address] [place] [address] Dr. Dwight Waters Portable XR Chest Viewson [...] chest. IMPRESSION IMPRESSION: No acute cardiopulmonary disease [facility] Radiology Study observation (narrative) [facility] Portable XR Chest ViewsOrder ed By: Vladislav Omer on 05-15-2022 [facility] URINE DIPSTICK; REFLEX MICRO SCOPY; REFLEX CULTURE PERFORMABLEon 05-15-2022 Appearance (U) Clear Clear [facility] Color (U) Yellow [facility] Glucose Test strip (U) [Mass/Vol] 100 mg/dL Abnormal Negative [facility] Interpretation and review of laboratory results Abnormal [facility] Ketones (U) [Mass/Vol] Negative Negative [facility] Leukocyte esterase Test strip Ql (U) Large Abnormal Negative [facility] Nitrite Ql (U) Negative Negative [facility] pH (U) 6.0 [pH] 5.0 - 7.0 [facility] Protein (U) [Mass/Vol] 100 mg/dL Abnormal Negative [facility] RBC (U) [#/Vol] Large Abnormal Negative [facility] Specific gravity (U) [Rel density] 1.010 [facility] Urobilinogen (U) [Mass/Vol] 0.2 E.U./dL 0.2 E.U/dL, 1.0 E.U/dL [facility] URINE MICROSCOPIC WITH REFLE X TO CULTUREOrdered By: Rey Bro on 05-15-2022 Bacteria LM Ql (Urine sed) ABSENT ABSENT [facility] Epithelial cells.squamous LM Ql (Urine sed) ABSENT 1/hpf = 1+, 2-5/hpf = 2+, 0/hpf = 0+, ABSENT [facility] Interpretation and review of laboratory results Abnormal [facility] RBC LM.HPF (Urine sed) [#/Area] /[HPF] Abnormal 0 - 2 /HPF [facility] WBC LM.HPF (Urine sed) [#/Area] 10-20 Abnormal 0 - 5 /HPF [facility] CT ABD/PELVIS WO CONon 05-12 CT ABD/PELVIS WO CON Begin Addendum #[address] Lund 3:25 PM EST 05/11/2022. Begin Addendum #2 IMPRESSION below should also contain the followin. 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 The [place] kidneys are progressively atrophic bilaterally compared to [...] of 06/14/2020 are no longer present. The [place] distal right ureter is decompressed beyond this [...] with surgical history for renal graft and wilton right urinary drainage, as a discrete ureteroneocystostomy is not identified, and the graft may be draining via a ureteroureterostomy. Urology consultation recommended. 3. The [place] kidneys are bilaterally atrophic, with right renal sinus calcifications consistent with nonobstructing right wilton renal calculi up to 6 mm. Normal The [facility] CBC AUTO DIFFon 05-11-2022 BASO # 0.1 103/ul Normal 0.0-0.1 [facility] Comment on above: Performed By: #### U RTPCR #### [facility] [address] [place] [address] Dr. Dwight Waters Basophils/100 WBC (Bld) 0.8 % Normal 0.2-2.0 [facility] Comment on above: Performed By: #### U RTPCR #### [facility] [address] [place] [address] Dr. Dwight Waters EO # 0.2 103/ul Normal 0.0-0.7 [facility] Comment on above: Performed By: #### U RTPCR #### [facility] [address] [place] [address] Dr. Dwight Waters Eosinophils/100 WBC (Bld) 2.5 % Normal 0.9-7.0 [facility] Comment on above: Performed By: #### U RTPCR #### [facility] [address] [place] [address] Dr. Dwight Waters Erythrocyte distribution width (RBC) [Ratio] 12.5 % Normal 11.0-15.0 [facility] Comment on above: Performed By: #### U RTPCR #### [facility] [address] [place] [address] Dr. Dwight Waters Hematocrit (Bld) [Volume fraction] 48.3 % Normal 42.0-54.0 [facility] Comment on above: Performed By: #### U RTPCR #### [facility] [address] [place] [address] Dr. Dwight Waters Hemoglobin (Bld) [Mass/Vol] 15.3 g/dL Normal 14.0-18.0 [facility] Comment on above: Performed By: #### U RTPCR #### [facility] [address] [place] [address] Dr. Dwight Waters IG # 0.01 10e3/ul Normal 0.00-0.03 [facility] Comment on above: Performed By: #### U RTPCR #### [facility] [address] [place] [address] Dr. Dwight Waters IG % 0.2 % Normal 0.0-0.5 [facility] Comment on above: Performed By: #### U RTPCR #### [facility] [address] [place] [address] Dr. Dwight Waters LYMPH # 1.9 103/ul Normal 1.2-3.8 [facility] Comment on above: Performed By: #### U RTPCR #### [facility] [address] [place] [address] Dr. Dwight Waters Lymphocytes/100 WBC (Bld) 29.8 % Normal 20.5-60.0 [facility] Comment on above: Performed By: #### U RTPCR #### [facility] [address] [place] [address] Dr. Dwight Waters MANUAL DIFF REQ NO Normal [facility] Comment on above: Performed By: #### U RTPCR #### [facility] [address] [place] [address] Dr. Dwight Waters MCH (RBC) [Entitic mass] 28.2 pg Normal 25.9-34.0 [facility] Comment on above: Performed By: #### U RTPCR #### [facility] [address] [place] [address] Dr. Dwight Waters MCHC (RBC) [Mass/Vol] 31.7 g/dL Normal 29.9-35.2 [facility] Comment on above: Performed By: #### U RTPCR #### [facility] [address] [place] [address] Dr. Dwight Waters MCV (RBC) [Entitic vol] 89.1 fL Normal 80.0-94.0 [facility] Comment on above: Performed By: #### U RTPCR #### [facility] [address] [place] [address] Dr. Dwight Waters MONO # 0.6 103/ul Normal 0.3-0.8 [facility] Comment on above: Performed By: #### U RTPCR #### [facility] [address] [place] [address] Dr. Dwight Waters Monocytes/100 WBC (Bld) 9.0 % Normal 1.7-12.0 [facility] Comment on above: Performed By: #### U RTPCR #### [facility] [address] [place] [address] Dr. Dwight Waters NEUT # 3.6 103/ul Normal 1.4-6.5 [facility] Comment on above: Performed By: #### U RTPCR #### [facility] [address] [place] [address] Dr. Dwight Waters Neutrophils/100 WBC (Bld) 57.7 % Normal 43.0-75.0 [facility] Comment on above: Performed By: #### U RTPCR #### [facility] [address] [place] [address] Dr. Dwight Waters Platelet mean volume (Bld) [Entitic vol] 9.9 fL Normal 9.5-13.5 [facility] Comment on above: Performed By: #### U RTPCR #### [facility] [address] [place] [address] Dr. Dwight Waters PLT 249 103/ul Normal 150-450 [facility] Comment on above: Performed By: #### U RTPCR #### [facility] [address] [place] [address] Dr. Dwight Waters RBC 5.42 106/ul Normal 4.70-6.10 [facility] Comment on above: Performed By: #### U RTPCR #### [facility] [address] [place] [address] Dr. Dwight Waters WBC 6.3 103/ul Normal 4.0-11.0 [facility] Comment on above: Performed By: #### U RTPCR #### [facility] [address] [place] [address] Dr. Dwight Waters ER URINE PROFILEon 2 Bilirubin Ql (U) Unable to perform te sting due to color interference. Abnormal NEGATIVE [facility] Comment on above: Performed By: #### U RTPCR #### [facility] [address] [place] [address] Dr. Dwight Waters Clarity (U) TURBID Abnormal CLEAR [facility] Comment on above: Performed By: #### U RTPCR #### [facility] [address] [place] [address] Dr. Dwight Waters Color (U) RED Abnormal YELLOW [facility] Comment on above: Performed By: #### U RTPCR #### [facility] [address] [place] [address] Dr. Dwight Waters ERUAHD A micrscopic examina tion will be performed if indicated. Normal The [facility] Comment on above: Performed By: #### U RTPCR #### [facility] [address] [place] [address] Dr. Dwight Waters Glucose Ql (U) Unable to perform te sting due to color interference. Abnormal NEGATIVE [facility] Comment on above: Performed By: #### U RTPCR #### [facility] [address] [place] [address] Dr. Dwight Waters Hemoglobin Ql (U) Unable to perform te sting due to color interference. Abnormal NEGATIVE [facility] Comment on above: Performed By: #### U RTPCR #### [facility] [address] [place] [address] Dr. Dwight Waters Ketones Ql (U) Unable to perform te sting due to color interference. Abnormal NEGATIVE [facility] Comment on above: Performed By: #### U RTPCR #### [facility] [address] [place] [address] Dr. Dwight Waters LEUKOCYTES Unable to perform te sting due to color interference. Abnormal NEGATIVE [facility] Comment on above: Performed By: #### U RTPCR #### [facility] [address] [place] [address] Dr. Dwight Waters Nitrite Ql (U) Unable to perform te sting due to color interference. Abnormal NEGATIVE [facility] Comment on above: Performed By: #### U RTPCR #### [facility] [address] [place] [address] Dr. Dwight Waters pH (U) 6.5 [pH] Normal 5-9 [facility] Comment on above: Performed By: #### U RTPCR #### [facility] [address] [place] [address] Dr. Dwight Waters SPEC GRAVITY 1.020 Normal 1.005-<=1.02 5 [facility] Comment on above: Performed By: #### U RTPCR #### [facility] [address] [place] [address] Dr. Dwight Waters UA PROTEIN Unable to perform te sting due to color interference. Normal NEGATIVE/ TRACE [facility] Comment on above: Performed By: #### U RTPCR #### [facility] [address] [place] [address] Dr. Dwight Waters UR MICRO IND INDICATED Normal [facility] Comment on above: Performed By: #### U RTPCR #### [facility] [address] [place] [address] Dr. Dwight Waters UROBILINOGEN Unable to perform te sting due to color interference. Normal 0.2 - 1.0 [facility] Comment on above: Performed By: #### U RTPCR #### [facility] [address] [place] [address] Dr. Dwight Waters PROF 14(COMP METB)on 022 Albumin [Mass/Vol] 3.8 g/dL Normal 3.4-5.0 [facility] Comment on above: Performed By: #### C MP #### [facility] [address] [place] [address] Dr. Dwight Waters Albumin/Globulin [Mass ratio] 1.1 {ratio} Normal [facility] Comment on above: Performed By: #### C MP #### [facility] [address] [place] [address] Dr. Dwight Waters ALP [Catalytic activity/Vol] 106 U/L Normal 46-116 [facility] Comment on above: Performed By: #### C MP #### [facility] [address] [place] [address] Dr. Dwight Waters ALT [Catalytic activity/Vol] 30 U/L Normal 16-63 [facility] Comment on above: Performed By: #### C MP #### [facility] [address] [place] [address] Dr. Dwight Waters Anion gap [Moles/Vol] 11.7 mmol/L Normal [facility] Comment on above: Performed By: #### C MP #### [facility] [address] [place] [address] Dr. Dwight Waters AST [Catalytic activity/Vol] 16 U/L Normal 15-37 [facility] Comment on above: Performed By: #### C MP #### [facility] [address] [place] [address] Dr. Dwight Waters Bilirubin [Mass/Vol] 0.6 mg/dL Normal 0.2-1.0 [facility] Comment on above: Performed By: #### C MP #### [facility] [address] [place] [address] Dr. Dwight Waters Calcium [Mass/Vol] 9.1 mg/dL Normal 8.5-10.1 [facility] Comment on above: Performed By: #### C MP #### [facility] [address] [place] [address] Dr. Dwight Waters CO2 [Moles/Vol] 27.4 mmol/L Normal 21.0-32.0 [facility] Comment on above: Performed By: #### C MP #### [facility] [address] [place] [address] Dr. Dwight Waters Creatinine [Mass/Vol] 1.18 mg/dL Normal 0.70-1.30 [facility] Comment on above: Performed By: #### C MP #### [facility] [address] [place] [address] Dr. Dwight Waters EGFR-AF CONGOLESE >60 Normal >=60 [facility] Comment on above: Performed By: #### C MP #### [facility] [address] [place] [address] Dr. Dwight Waters EGFR-NON AF CONGOLESE >60 Normal >=60 [facility] Comment on above: Performed By: #### C MP #### [facility] [address] [place] [address] Dr. Dwight Waters Globulin (S) [Mass/Vol] 3.6 g/dL Normal [facility] Comment on above: Performed By: #### C MP #### [facility] [address] [place] [address] Dr. Dwight Waters Glucose [Mass/Vol] 192 mg/dL Critically high 74-106 T [facility] Comment on above: Performed By: #### C MP #### [facility] [address] [place] [address] Dr. Dwight Waters Potassium [Moles/Vol] 4.1 mmol/L Normal 3.5-5.1 [facility] Comment on above: Performed By: #### C MP #### [facility] [address] [place] [address] Dr. Dwight Waters Protein [Mass/Vol] 7.4 g/dL Normal 6.4-8.2 [facility] Comment on above: Performed By: #### C MP #### [facility] [address] [place] [address] Dr. Dwight Waters Sodium [Moles/Vol] 142 mmol/L Normal 136-145 [facility] Comment on above: Performed By: #### C MP #### [facility] [address] [place] [address] Dr. Dwight Waters Urea nitrogen [Mass/Vol] 17.0 mg/dL Normal 7.0-18.0 [facility] Comment on above: Performed By: #### C MP #### [facility] [address] [place] [address] Dr. Dwight Waters Urea nitrogen/Creatinine [Mass ratio] 14.4 mg/mg Normal [facility] Comment on above: Performed By: #### C MP #### [facility] [address] [place] [address] Dr. Dwight Waters URINE MICROSCOPIC ONLYon BACTERIA NONE SEEN Normal NONE SEEN [facility] Comment on above: Performed By: #### U RTPCR #### [facility] [address] [place] [address] Dr. Dwight Waters Bacteria identified Cx Nom (U) NOT INDICATED Normal [facility] Comment on above: Performed By: #### U RTPCR #### [facility] [address] [place] [address] Dr. Dwight Waters CAST NONE SEEN Normal NONE SEEN [facility] Comment on above: Performed By: #### U RTPCR #### [facility] [address] [place] [address] Dr. Dwight Waters Crystals LM Nom (Urine sed) NONE SEEN Normal NONE SEEN [facility] Comment on above: Performed By: #### U RTPCR #### [facility] [address] [place] [address] Dr. Dwight Waters Epithelial cells LM Ql (Urine sed) RARE Normal NONE SEEN /RARE [facility] Comment on above: Performed By: #### U RTPCR #### [facility] [address] [place] [address] Dr. Dwight Waters MUCOUS NONE SEEN Normal NONE SEEN [facility] Comment on above: Performed By: #### U RTPCR #### [facility] [address] [place] [address] Dr. Dwight Waters RBC (U) [#/Vol] /uL Abnormal 0-2 [facility] Comment on above: Performed By: #### U RTPCR #### [facility] [address] [place] [address] Dr. Dwight Waters WBC NONE SEEN Normal NONE SEEN [facility] Comment on above: Performed By: #### U RTPCR #### [facility] [address] [place] [address] Dr. Dwight Waters K (Potassium)on 01-06-2020 Potassium [Moles/Vol] 4.4 mmol/L Normal 3.7-5.3 [facility] Comment on above: Performed By: #### K #### [facility] [address] [place] [address] Knife Glazer: Kehinde Woodward MD Potassiumon 01-06-2020 Potassium [Moles/Vol] 4.4 mmol/L 3.7 - 5.3 mmol/L [facility] Work Phone: Hemoglobin and Hematocrit, B loodon 10-24-2019 Hematocrit (Bld) [Volume fraction] 23.6 % Low 40.7 - 50.3 % [place], [place] Hemoglobin (Bld) [Mass/Vol] 7.3 g/dL Low 13 - 17 g/dL [place] Interpretation and review of laboratory results Abnormal [place] Hgb/Hcton 10-24-2019 Hematocrit (Bld) [Volume fraction] 23.6 % Low 40.7-50.3 [facility] Comment on above: Performed By: #### H H #### [facility] [address] [place] [address] Knife Glazer: Kehinde Woodward MD Hemoglobin (Bld) [Mass/Vol] 7.3 g/dL Low 13.0-17.0 [facility] Comment on above: Performed By: #### H H #### [facility] [address] [place] [address] Knife Glazer: Kehinde Woodward MD Hemoglobinon 08-27-2019 Hemoglobin (Bld) [Mass/Vol] 7.5 g/dL Low 13.0-17.0 [facility] Comment on above: Performed By: #### H GB #### [facility] [address] [place] [address] Knife Glazer: Kehinde Woodward MD Hemoglobin (Bld) [Mass/Vol] 7.5 g/dL Low 13 - 17 g/dL [place], [place] Interpretation and review of laboratory results Abnormal [place] Hemoglobinon 08-08-2019 Hemoglobin (Bld) [Mass/Vol] 8.3 g/dL Low 13.0-17.0 [facility] Comment on above: Performed By: #### H GB #### [facility] [address] [place] [address] Knife Glazer: Kehinde Woodward MD Hemoglobin (Bld) [Mass/Vol] 8.3 g/dL Low 13 - 17 g/dL [place] Interpretation and review of laboratory results Abnormal [place] Hemoglobinon 08-04-2019 Hemoglobin (Bld) [Mass/Vol] 8.0 g/dL Low 13.0-17.0 [facility] Comment on above: Performed By: #### H GB #### [facility] [address] [place] [address] Knife Glazer: Kehinde Woodward MD Hemoglobin A1Con 08-03-2019 HbA1c (Bld) [Mass fraction] % Low 4.8-5.9 [facility] Comment on above: Result Comment: The ADA and AACC recommend providing the estimated average glucose result to permit better patient understanding of their HBA1c result. Performed By: #### G LYHGB #### [facility] [address] [place] [address] Knife Glazer: Kehinde Woodward MD Glucose [Mass/Vol] mg/dL mg/dL [place], [place] Comment on above: The ADA and AACC rec ommend providing the estimated average glucose result to permit better patient understanding of their HBA1c result. HbA1c (Bld) [Mass fraction] % Low 4.8 - 5.9 % [place] Interpretation and review of laboratory results Abnormal [place] Hemoglobinon 08-01-2019 Hemoglobin (Bld) [Mass/Vol] 8.1 g/dL Low 13.0-17.0 [facility] Comment on above: Performed By: #### H GB #### [facility] [address] [place] [address] Knife Glazer: Kehinde Woodward MD Hemoglobin (Bld) [Mass/Vol] 8.1 g/dL Low 13 - 17 g/dL [place] Interpretation and review of laboratory results Abnormal [place] Hgb/Hcton 06-10-2019 Hematocrit (Bld) [Volume fraction] 24.3 % Low 40.7-50.3 [facility] Comment on above: Performed By: #### H H #### [facility] [address] [place] [address] Knife Glazer: Kehinde Woodward MD Hemoglobin (Bld) [Mass/Vol] 7.4 g/dL Low 13.0-17.0 [facility] Comment on above: Performed By: #### H H #### [facility] [address] [place] [address] Knife Glazer: Kehinde Woodward MD Hemoglobinon 06-01-2019 Hemoglobin (Bld) [Mass/Vol] 7.2 g/dL Low 13.0-17.0 [facility] Comment on above: Performed By: #### H GB #### [facility] [address] [place] [address] Knife Glazer: Kehinde Woodward MD K (Potassium)on 01-14-2019 Potassium [Moles/Vol] 3.6 mmol/L Low 3.7-5.3 [facility] Comment on above: Performed By: #### K #### [facility] [address] [place] [address] Knife Glazer: Kehinde Woodward MD Otheron 10-19-2018 IMPRESSION: 1. [...] is noted. Invalid Interpretation Code RADIOLOGY User, Lupillo - 10/19/2018 8:41 AM EST EXAM: US [...] High LAB, [facility] TOXICOLOGY DRUG SCREEN, [facility] 10-12-2018 Drugs of abuse panel - Blood by Screen method For Medical Purposes Only, Non-forensic, screen results are presumptive. No confirmatory testing will follow. Invalid Interpretation Code LAB, [facility] Comment on above: This Liquid Chromato graphy Mass Spectrometry (LC/MS/MS) test was developed and its performance characteristics determined by Toxicology Laboratory at [facility]. It has not been cleared or [...] Amitriptyline(50), Amphetamine(250), Atenolol(500), Barbiturates(1000), Benzoylecgonine(50), Buprenorphine(50), Bupropion(25), Caffeine(64358), Chlordiazepoxide(50), Chlorpheniramine(100), Chlorpromazine(50), Citalopram(100), Clonazepam(200), Cocaine(25), Codeine(200), [...] [place], [facility] TOXICOLOGY SCREEN UR[facility] Drugs identified Screen Nom (U) For Medical Purposes Only, Non-forensic, screen results are presumptive. No confirmatory testing will follow. Invalid Interpretation Shira [place], [facility] Comment on above: This Liquid Chromato graphy Mass Spectrometry (LC/MS/MS) test was developed and its performance characteristics determined by Toxicology Laboratory at [facility]. It has not been cleared or [...] Amitriptyline(50), Amphetamine(250), Atenolol(500), Barbiturates(200), Benzoylecgonine(50), Buprenorphine(500), Bupropion(25), Caffeine(97874), Cannabinoids(THC)(50), Chlordiazepoxide(50), Chlorpheniramine(100), Chlorpromazine(50), Citalopram(100), Clonazepam(200), Cocaine(25), [...] 56 mm[Hg] Candie Almaguer MD Work Phone: [facility] 02-26-2024 09:07-0400 Heart rate 65 /min Candie Almaguer MD Work Phone: [facility] 02-26-2024 09:07-0400 Systolic blood pressure 113 mm[Hg] Candie Almaguer MD Work Phone: [facility] 02-26-2024 09:06-0400 Body height 170.2 cm Candie Almaguer MD Work Phone: [facility] 02-26-2024 09:06-0400 Body mass index (BMI) [Ratio] 28.9 kg/m2 Candie Almaguer MD Work Phone: [facility] 02-26-2024 09:06-0400 Body weight 83.69 kg Candie Almaguer MD Work Phone: [facility] 02-26-2024 09:06-0400 Respiratory rate 20 /min Candie Almaguer MD Work Phone: [facility] 02-26-2024 09:06-0400 SaO2% (BldA) [Mass fraction] 97 % Candie Almaguer MD Work Phone: [facility] 01-23-2024 15:04-0500 Body temperature 97.9 [degF] Kevin Prince MD Work Phone: [facility] 01-23-2024 15:04-0500 Diastolic blood pressure 67 mm[Hg] Kevin Prince MD Work Phone: [facility] 01-23-2024 15:04-0500 Heart rate 51 /min Kevin Prince MD Work Phone: [facility] 01-23-2024 15:04-0500 Respiratory rate 16 /min Kevin Prince MD Work Phone: [facility] 01-23-2024 15:04-0500 SaO2% (BldA) [Mass fraction] 94 % Kevin Prince MD Work Phone: [facility] 01-23-2024 15:04-0500 Systolic blood pressure 151 mm[Hg] Kevin Prince MD Work Phone: [facility] 01-23-2024 10:46-0500 Body mass index (BMI) [Ratio] 30.94 kg/m2 Kevin Prince MD Work Phone: [facility] 01-23-2024 10:46-0500 Body weight 89.6 kg Kevin Prince MD Work Phone: [facility] 01-18-2024 11:21-0500 Body height 170.2 cm Kevin Prince MD Work Phone: [facility] 01-06-2024 09:04-0500 Body height 170.2 cm Zuly Bruno MDM SR Work Phone: [facility] 01-06-2024 09:04-0500 Body mass index (BMI) [Ratio] 32.42 kg/m2 Zuly Bruno MDM SR Work Phone: [facility] 01-06-2024 09:04-0500 Body temperature 97.81 [degF] Zuly Bruno MDM SR Work Phone: [facility] 01-06-2024 09:04-0500 Body weight 93.89 kg Zuly Bruno MDM SR Work Phone: [facility] 01-06-2024 09:04-0500 Diastolic blood pressure 70 mm[Hg] Zuly Tannerholz MDM SR Work Phone: [facility] 01-06-2024 09:04-0500 Heart rate 95 /min Zulytray Tannerholz MDM SR Work Phone: [facility] 01-06-2024 09:04-0500 Respiratory rate 17 /min Zuly Floresholz MDM SR Work Phone: [facility] 01-06-2024 09:04-0500 SaO2% (BldA) [Mass fraction] 99 % Zuly Kristopherhholz MDM SR Work Phone: [facility] 01-06-2024 09:04-0500 Systolic blood pressure 138 mm[Hg] Zuly Floresholz MDM SR Work Phone: [facility] 09-11-2023 10:31-0400 Body temperature 97.81 [degF] Steve Yeison MBBS Work Phone: [facility] 09-11-2023 10:31-0400 Diastolic blood pressure 66 mm[Hg] Steve Yeison MBBS Work Phone: [facility] 09-11-2023 10:31-0400 Heart rate 70 /min Steve Yeison MBBS Work Phone: [facility] 09-11-2023 10:31-0400 Respiratory rate 20 /min Steve Yeison MBBS Work Phone: [facility] 09-11-2023 10:31-0400 SaO2% (BldA) [Mass fraction] 91 % Steve Yeison MBBS Work Phone: [facility] 09-11-2023 10:31-0400 Systolic blood pressure 129 mm[Hg] Steve Yeison MBBS Work Phone: [facility] 09-10-2023 15:50-0400 Body mass index (BMI) [Ratio] 31.99 kg/m2 Steve Yeison MBBS Work Phone: [facility] 09-10-2023 15:50-0400 Body weight 92.67 kg Steve Yeison MBBS Work Phone: [facility] 09-02-2023 07:32-0400 Body height 170.2 cm Steve Yeison MBBS Work Phone: [facility] 08-28-2023 13:33-0400 Body height 170.2 cm Steve Yeison MBBS Work Phone: [facility] 08-28-2023 13:33-0400 Body mass index (BMI) [Ratio] 32.12 kg/m2 Steve Yeison MBBS Work Phone: [facility] 08-28-2023 13:33-0400 Body temperature 97.3 [degF] Steve Yeison MBBS Work Phone: [facility] 08-28-2023 13:33-0400 Body weight 93.03 kg Steve Yeison MBBS Work Phone: [facility] 08-28-2023 13:33-0400 Diastolic blood pressure 41 mm[Hg] Steve Yeison MBBS Work Phone: [facility] 08-28-2023 13:33-0400 Heart rate 116 /min Steve Yeison MBBS Work Phone: [facility] 08-28-2023 13:33-0400 Systolic blood pressure 106 mm[Hg] Steve Yeison MBBS Work Phone: [facility] 06-12-2023 14:50-0400 Body mass index (BMI) [Ratio] 33.8 kg/m2 Rebeca Gutierrez [employer] Work Phone: [facility] 06-12-2023 14:50-0400 Body temperature 97.3 [degF] Rebeca Gutierrez [employer] Work Phone: [facility] 06-12-2023 14:50-0400 Body weight 97.89 kg Rebeca Gutierrez [employer] Work Phone: [facility] 06-12-2023 14:50-0400 Diastolic blood pressure 77 mm[Hg] Rebeca Gutierrez [employer] Work Phone: [facility] 06-12-2023 14:50-0400 Heart rate 76 /min Rebeca Gutierrez [employer] Work Phone: [facility] 06-12-2023 14:50-0400 Systolic blood pressure 146 mm[Hg] Rebeca Gutierrez [employer] Work Phone: [facility] 01-16-2023 08:57-0500 Body height 170.2 cm [facility] Work Phone: [facility] 01-16-2023 08:57-0500 Body mass index (BMI) [Ratio] 33.66 kg/m2 [facility] Work Phone: [facility] 01-16-2023 08:57-0500 Body temperature 97.3 [degF] [facility] Work Phone: [facility] 01-16-2023 08:57-0500 Body weight 97.48 kg [facility] Work Phone: [facility] 01-16-2023 08:57-0500 Diastolic blood pressure 75 mm[Hg] [facility] Work Phone: [facility] 01-16-2023 08:57-0500 Heart rate 76 /min [facility] Work Phone: [facility] 01-16-2023 08:57-0500 Systolic blood pressure 142 mm[Hg] [facility] Work Phone: [facility] 09-10-2022 09:38-0400 Body height 170.2 cm Ryan Yepez MD Work Phone: [facility] 09-10-2022 09:38-0400 Body mass index (BMI) [Ratio] 33.67 kg/m2 Ryan Yepez MD Work Phone: 7(245)523-384976 [address] 09-10-2022 09:38-0400 Body weight 97.52 kg Ryan Yepez MD Work Phone: 6(824)020-876076 [address] 09-10-2022 09:38-0400 Diastolic blood pressure 83 mm[Hg] Ryan Yepez MD Work Phone: 0(893)045-669576 [address] 09-10-2022 09:38-0400 Heart rate 64 /min Ryan Yepez MD Work Phone: 1(609)935-395271 [place] [address] 09-10-2022 09:38-0400 SaO2% (BldA) [Mass fraction] 96 % Ryan Yepez MD Work Phone: [facility] 09-10-2022 09:38-0400 Systolic blood pressure 129 mm[Hg] Ryan Yepez MD Work Phone: [facility] 07-07-2022 13:48-0400 Diastolic blood pressure 76 mm[Hg] Ryan Yepez MD Work Phone: [facility] 07-07-2022 13:48-0400 Heart rate 82 /min Ryan Yepez MD Work Phone: [facility] 07-07-2022 13:48-0400 SaO2% (BldA) [Mass fraction] 96 % Ryan Yepez MD Work Phone: [facility] 07-07-2022 13:48-0400 Systolic blood pressure 141 mm[Hg] Ryan Yepez MD Work Phone: [facility] 06-27-2022 13:32-0400 Body height 170.2 cm Ryan Yepez MD Work Phone: [facility] 06-27-2022 13:32-0400 Body mass index (BMI) [Ratio] 34.24 kg/m2 Ryan Yepez MD Work Phone: [facility] 06-27-2022 13:32-0400 Body temperature 98.6 [degF] Ryan Yepez MD Work Phone: 6(537)960-858476 [address] 06-27-2022 13:32-0400 Body weight 99.16 kg Ryan Yepez MD Work Phone: [facility] 06-27-2022 13:32-0400 Diastolic blood pressure 78 mm[Hg] Ryan Yepez MD Work Phone: [facility] 06-27-2022 13:32-0400 Heart rate 77 /min Ryan Yepez MD Work Phone: [facility] 06-27-2022 13:32-0400 SaO2% (BldA) [Mass fraction] 95 % Ryan Yepez MD Work Phone: [facility] 06-27-2022 13:32-0400 Systolic blood pressure 121 mm[Hg] Ryan Yepez MD Work Phone: [facility] 06-27-2022 10:52-0400 Body height 170.2 cm Rena Brewster RN [facility] 06-27-2022 10:52-0400 Body mass index (BMI) [Ratio] 34.46 kg/m2 Rena Brewster RN [facility] 06-27-2022 10:52-0400 Body temperature 98.2 [degF] Rena Brewster RN [facility] 06-27-2022 10:52-0400 Body weight 99.79 kg Rena Brewster RN [facility] 06-27-2022 10:52-0400 Diastolic blood pressure 73 mm[Hg] Rena Brewster RN [facility] 06-27-2022 10:52-0400 Heart rate 78 /min Rena Brewster RN [facility] 06-27-2022 10:52-0400 Respiratory rate 20 /min Rena Brewster RN [facility] 06-27-2022 10:52-0400 SaO2% (BldA) [Mass fraction] 97 % Rena Brewster RN [facility] 06-27-2022 10:52-0400 Systolic blood pressure 135 mm[Hg] Rena Brewster RN [facility] 06-12-2022 14:23-0400 Body mass index (BMI) [Ratio] 34.59 kg/m2 Steve Yeison MBBS Work Phone: [facility] 06-12-2022 14:23-0400 Body temperature 97 [degF] Steve Yeison MBBS Work Phone: [facility] 06-12-2022 14:23-0400 Body weight 100.2 kg Steve Yeison MBBS Work Phone: [facility] 06-12-2022 14:23-0400 Diastolic blood pressure 66 mm[Hg] Steve Yeison MBBS Work Phone: [facility] 06-12-2022 14:23-0400 Heart rate 63 /min Steve Yeison MBBS Work Phone: [facility] 06-12-2022 14:23-0400 Systolic blood pressure 133 mm[Hg] Steve Yeison MBBS Work Phone: [facility] 05-20-2022 15:21-0400 Body temperature 97.9 [degF] Gian Villatoro MD Work Phone: 3(902)201-917662 [place] [address] 05-20-2022 15:21-0400 Diastolic blood pressure 64 mm[Hg] Gian Villatoro MD Work Phone: 6(267)182-345962 [place] [address] 05-20-2022 15:21-0400 Heart rate 55 /min Gian Villatoro MD Work Phone: 4(715)752-965262 [place] [address] 05-20-2022 15:21-0400 Respiratory rate 15 /min Gian Villatoro MD Work Phone: 2(878)913-152462 [place] [address] 05-20-2022 15:21-0400 SaO2% (BldA) [Mass fraction] 95 % Gian Villatoro MD Work Phone: 2(398)960-112162 [place] [address] 05-20-2022 15:21-0400 Systolic blood pressure 145 mm[Hg] Gian Villatoro MD Work Phone: 3(015)838-790462 [place] [address] 05-19-2022 12:15-0400 Body mass index (BMI) [Ratio] 35.87 kg/m2 Gian Villatoro MD Work Phone: 5(134)603-641462 [place] [address] 05-19-2022 12:15-0400 Body weight 103.92 kg Gian Villatoro MD Work Phone: 3(925)391-196362 [place] [address] Comment on above: standing scale 05-16-2022 16:19-0400 Body height 170.2 cm Gian Villatoro MD Work Phone: 4(987)033-056362 [place] [address] 10-19-2018 08:44-0500 BMI (Body Mass Index) 26.58 kg/m2 [facility] Work Phone: 10-19-2018 08:44-0500 BP Diastolic 76 mm[Hg] [facility] Work Phone: 10-19-2018 08:44-0500 BP Systolic 144 mm[Hg] [facility]: 10-19-2018 08:44-0500 Height 172.7 cm [facility] Work Phone: 10-19-2018 08:44-0500 Pulse (Heart Rate) 92 /min [facility] Work Phone: 10-19-2018 08:44-0500 Pulse Oximetry 99 % [facility] Work Phone: 10-19-2018 08:44-0500 Respiratory Rate 16 /min [facility] Work Phone: 10-19-2018 08:44-0500 Weight 79.29 kg [facility] Work Phone: 10-12-2018 09:50-0500 BMI (Body Mass Index) 27.24 kg/m2 [facility] Work Phone: 10-12-2018 09:50-0500 Body Temperature 98.6 [degF] [facility] Work Phone: 10-12-2018 09:50-0500 BP Diastolic 80 mm[Hg] [facility] Work Phone: 10-12-2018 09:50-0500 BP Systolic 157 mm[Hg] [facility] Work Phone: 10-12-2018 09:50-0500 Height 169.5 cm [facility] Work Phone: 10-12-2018 09:50-0500 Pulse (Heart Rate) 94 /min [facility] Work Phone: 10-12-2018 09:50-0500 Weight 78.29 kg [facility] Work Phone: Encounters Encounter Date Encounter Type Care Provider Facility Start: 03-24-2024 End: 03-24-2024 ambulatory JOHNNA BRINK Not Available Start: 03-22-2024 End: 03-22-2024 ambulatory JOHNNA BRINK Not Available Start: 03-17-2024 End: 03-17-2024 ambulatory JOHNNA BRINK Not Available Start: 03-14-2024 End: 03-14-2024 ambulatory FIDELINA SANCHEZ Not Available Start: 03-10-2024 End: 03-10-2024 ambulatory JOHNNA BRINK Not Available Start: 03-08-2024 End: 03-08-2024 ambulatory JOHNNA BRINK Not Available Start: 03-03-2024 End: 03-03-2024 ambulatory JOHNNA BRINK Not Available Start: 03-02-2024 End: 03-02-2024 ambulatory Meka Munoz [facility] [place] Start: 03-02-2024 End: 03-02-2024 Patient encounter procedure Meka Munoz [facility] [place] Start: 03-01-2024 ambulatory ZULY AICHLATISHAZ Facility: [facility] Start: 03-01-2024 End: 03-01-2024 ambulatory JOHNNA BRINK Not Available Start: 02-26-2024 [facility] Start: 02-26-2024 ambulatory [facility] Start: 02-26-2024 End: 02-26-2024 Office outpatient new 30 minutes Candie Almaguer MD Work Phone: [employer] [facility] Kehinde [facility] Comment on above: Heart failure, diast olic, acute (Primary Dx) Start: 02-25-2024 End: 02-25-2024 ambulatory FIDELINA SANCHEZ Not Available Start: 02-23-2024 End: 02-23-2024 ambulatory PALMA PALACIOS Not Available Start: 02-11-2024 End: 02-11-2024 ambulatory ZULY KRISTOPHERLydiaJOSE E Not Available Start: 01-16-2024 Encounter for other preprocedural examination KELVIN PACHECO [facility] Start: 01-16-2024 End: 01-23-2024 Evaluation and management of inpatient KEVIN PRINCE Facility:[facility] Start: 01-16-2024 End: 01-23-2024 Evaluation and management of inpatient Kevin Prince MD Work Phone: [id number] Comment on above: Pleural effusion on right Start: 01-16-2024 End: 01-23-2024 Patient encounter status Kevin Prince MD Work Phone: [facility] Work Phone: Start: 01-12-2024 End: 01-12-2024 ambulatory Angel Fete RPh,PharmD [facility] [place] Start: 01-12-2024 End: 01-12-2024 Patient encounter procedure Angel Fete RPh,PharmD [facility] [place] Start: 01-08-2024 Clinisync Result Encounter Generic External Data Provider [facility] External Department Unsolicited Start: 01-08-2024 Clinisync Result Encounter Generic External Data Provider [facility] External Department Unsolicited Start: 01-06-2024 End: 01-06-2024 ambulatory ZULY BRUNO Not Available Start: 01-06-2024 End: 01-06-2024 Office outpatient visit 25 minutes Zuly Bruno MDM SR Work Phone: [facility] Comment on above: Bilateral lower extr emity edema (Primary Dx); 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); Atherosclerosis 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); Obesity (BMI 30-39.9); DARLENE (obstructive sleep apnea); Tremor; Immunocompromised (CMS/HCC); Primary hypertension (CMS/[facility]); Shortness of breath Start: 01-01-2024 Clinisync Result Encounter Generic External Data Provider [facility] External Department Unsolicited Start: 01-01-2024 Clinisync Result Encounter Generic External Data Provider [facility] External Department Unsolicited Start: 11-03-2023 End: 11-03-2023 ambulatory ZULY BRNUO Not Available Start: 10-06-2023 ambulatory Angel Shirin RP,PharmD [facility] [place] Start: 10-06-2023 Patient encounter procedure Angel Carpio RP,PharmD [facility] [place] Start: 09-29-2023 [facility] Start: 09-24-2023 [facility] Start: 09-23-2023 ambulatory HAKEEM ALAMO Facility :[facility] Start: 09-15-2023 [facility] Start: 08-28-2023 End: 09-11-2023 Evaluation and management of inpatient KEVINCHLOE PRINCE Facility:[facility] Start: 08-28-2023 End: 09-11-2023 Evaluation and management of inpatient Steve Munoz MBBS Work Phone: [id number] Start: 08-28-2023 ambulatory STEVE S YEISON Facility:[facility] Start: 08-28-2023 End: 08-28-2023 Office outpatient visit 25 minutes Steve S Yeison MBBS Work Phone: [facility] Comment on above: Immunosuppressed sta tus (Primary Dx); Kidney replaced by transplant; Aftercare following organ transplant; High risk medication use; Other general symptoms and signs; Abnormal blood chemistry; Hypertension secondary to other renal disorders Start: 08-19-2023 ambulatory Meka rueda [facility] [place] Start: 08-19-2023 Patient encounter procedure Meka Munoz [facility] [place] Start: 06-12-2023 ambulatory SELF SELF Facility:[facility] Start: 06-12-2023 End: 06-12-2023 Office outpatient visit 25 minutes Steve S Yeison MBBS Work Phone: [facility] Comment on above: 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) Start: 06-10-2023 ambulatory Maren Bar [facility],PharmD [facility] [place] Start: 06-10-2023 Patient encounter procedure Maren Bar RPh,PharmD [facility] [place] Start: 05-26-2023 ambulatory ZULY BRUNO Facility: [facility] Start: 04-28-2023 End: 04-29-[address] DOCTOR EVANS Facility: Start: 04-13-2023 End: 04-13-2023 ambulatory [facility] Start: 03-12-2023 ambulatory Angel Fete RPh,PharmD [facility] [place] Start: 03-12-2023 Patient encounter procedure Angel Fete RPh,PharmD [facility] [place] Start: 03-10-2023 ambulatory Angel Fete RPh,PharmD [facility] [place] Start: 03-10-2023 Patient encounter procedure Angel Fete RPh,PharmD [facility] [place] Start: 03-02-2023 End: 03-03-[address] DOCTOR EVANS Facility: Start: 01-16-2023 End: 01-16-2023 Office outpatient visit 25 minutes Daisha Max DO Work Phone: [facility] Comment on above: Abnormal blood chemi stry (Primary Dx); Liver transplant recipient; Kidney replaced by transplant; Immunosuppressed status; Aftercare following organ transplant Start: 12-29-2022 End: 12-30-[address] DOCTOR EVANS Facility: Start: 11-04-2022 End: 11-05-[address] DOCTOR EVANS Facility: Start: 09-15-2022 End: 09-16-[address] DOCTOR EVANS Facility:[facility] Start: 09-10-2022 End: 09-10-2022 Office outpatient visit 25 minutes Ryan Yepez MD Work Phone: [facility] Comment on above: BPH with obstruction /lower urinary tract symptoms (Primary Dx); Encounter for screening for malignant neoplasm of prostate Start: 08-28-2022 End: 08-29-2022 ambulatory ROB BRUNO Facility: Start: 08-14-2022 End: 08-15-[address] DOCTOR EVANS Facility:[facility] Start: 07-07-2022 End: 07-07-2022 Patient encounter procedure Ryan Yepez MD Work Phone: [facility] Comment on above: Other hydronephrosis (Primary Dx); [...] MD Work Phone: [facility] Comment on above: Other hydronephrosis (Primary Dx) [...] Phone: [facility] Comment on above: Immunosuppressed sta tus [...] of inpatient Gian Villatoro MD Work Phone: [id number] Comment on above: FAYE (acute kidney in [facility]) Start: 05-15-2022 End: 05-15-[address] GEORGE LAWRENCE Facility:[facility] Start: 05-11-2022 End: 05-11-[address] GEORGE LAWRENCE Facility: Start: 03-14-2022 ambulatory Comfort Rivera [facility] Work Phone: [facility] [place] Start: 03-14-2022 Patient encounter procedure Comfort Rivera [facility] Work Phone: [facility] [place] Start: 06-14-2021 End: 06-14-2021 ambulatory Comfort Rivera [facility] Work Phone: [facility] Start: 06-14-2021 Patient encounter procedure Comfort Rivera [facility] [facility] Work Phone: [facility] Start: 01-20-2020 End: 01-27-2020 Patient encounter procedure PEPE CASE Facility:[facility] Start: 01-06-2020 End: 01-07-2020 Patient encounter procedure [facility] Start: 01-06-2020 End: 01-06-2020 Subsequent hospital visit by physician [facility] Start: 10-24-2019 End: 10-25-2019 Patient encounter procedure TANA CAMPA [facility] Start: 10-24-2019 End: 10-24-2019 Subsequent hospital visit by physician [facility] Start: 08-27-2019 End: 08-28-2019 Patient encounter procedure [facility] Start: 08-27-2019 End: 08-27-2019 Subsequent hospital visit by physician [facility] Start: 08-08-2019 End: 08-09-2019 Patient encounter procedure ROB BOWSERDEYVIMatthew [facility] Start: 08-08-2019 End: 08-08-2019 Subsequent hospital visit by physician [facility] Start: 08-03-2019 End: 08-04-2019 [facility] Start: 08-03-2019 End: 08-03-2019 Subsequent hospital visit by physician [facility] Start: 08-01-2019 End: 08-02-2019 [facility] Start: 08-01-2019 End: 08-01-2019 Subsequent hospital visit by physician [facility] Start: 06-10-2019 End: 06-11-2019 Patient encounter procedure RENA GUDINO [facility] Start: 06-01-2019 End: 06-02-2019 [facility] Start: 01-14-2019 End: 01-15-2019 Patient encounter procedure RENA GUDINO [facility] Start: 11-17-2018 End: 11-17-2018 Patient encounter procedure Fidelina Pierson [facility] Pre Transplant Office [...] Start: 10-13-2018 End: 10-13-2018 Patient encounter procedure [facility] Pre Transplant Office Comment on above: Reschedule Outside Medical Allan rds Request Start: 10-12-2018 End: 10-12-2018 Patient encounter procedure Sophie Raeann [facility] Pre Transplant Office Comment [...] Start: 10-05-2018 Patient encounter status Comfort Rivera RPH Work Phone: [facility] Procedures Date Procedure Procedure Detail [...] on above: Performed By: #### X M ####[facility] (DEFAULT)[address] [place] [address] Start: 01-22-2024 Assay of magnesium Just in [...] Start: 01-20-2024 ITRACONAZOLE LEVEL Jennifer norbert Alarcon [facility] Work Phone: Start: 01-20-2024 Oscillating positive expiratory [...] nos quantifica tion each organism Fidelina Ortiz Alarcon [facility] Work Phone: Start: 01-18-2024 Echocardiography ZULY A ICHHOLZ Start: 01-18-2024 Echo tthrc r-t 2d w/wom-mode compl spec&colr d Arelis Mera MD Work Phone: Start: 01-18-2024 Assay of magnesium Just in Jake LUZ Work Phone: Start: 01-18-2024 Hepatic function panel Arelis Mera MD Work Phone: Start: 01-17-2024 Ct abdomen & pelvis w/o contrast material Arelis Mera MD Work Phone: Start: 01-17-2024 Assay of magnesium Antwan Joseph MD Work Phone: Start: 01-17-2024 Hepatic function panel [...] AURIS SCREEN BY PCR Carol Ann Capps [employer]ODUCTION [employer]IMATOR Work Phone: Start: 01-08-2024 ALL CBC WITH [...] Work Phone: Start: 09-01-2023 Hepatic function panel Evna Kelly MD Work Phone: Start: 09-01-2023 Iadna nos amplified probe tq each organism Evan White Work Phone: Start: 08-31-2023 End: 08-31-2023 Iaad [...] AURIS SCREEN BY PCR Carol Ann Capps PRODUCTION REC[employer]IDEO GAME ANIMATOR Work Phone: Start: 08-28-2023 CBC AND ELECTRONIC [...] above: Performed By: #### C MP #### [facility] [address] [place] [address] Dr. wDight Waters Start: 07-07-2022 Rmvl nfros tube req fluoro guidance Ryan Yepez MD Work Phone: Start: 06-27-2022 Ct abdomen & pelvis w/o contrast material Evan Byrd MD Work Phone: Start: 06-12-2022 Culture bct isol&prs mptv id isolate ea urine Steve Munoz MB Work Phone: Start: 06-12-2022 EXTRA MICRO Steve S Nor i MBBS Work Phone: Start: 06-12-2022 Hemoglobin glycosylated a1c Steve Munoz MB Work Phone: Start: 06-12-2022 Hepatic function panel Yovani Orr MD Work Phone: Start: 06-12-2022 URINALYSIS REFLEX TO CULTURE Steve Munoz [facility] Work Phone: Start: 05-20-2022 Urography antegrade rs&i [...] Radiologic exam ches t single view Evan Benentt MD Work Phone: Start: 05-15-2022 Culture bct [...] liver trans plant Comfort Rivera [facility] Work Phone: Start: 04-08-2020 H/O: liver recipient Liver tra nsplant recipient Comfort Rivera [facility] Work Phone: Start: 01-06-2020 Potassium serum plasma/whole [...] kidney transplant recipient Comfort Rivera [facility] Work Phone: Start: 06-10-2019 HEMOGLOBIN AND HEMAT OCRIT, BLOOD ROB KASMANI Start: 06-01-2019 Blood count hemoglobin ROB KASMANI Start: 03-22-2019 Lipid 1996 panel - S fabricio or Plasma Comfort Rivera [facility] Work Phone: Start: 01-14-2019 Potassium serum plasma/whole blood ROB KASDEYVII Start: 10-19-2018 End: 10-19-2018 Ultrasonography of abdomen [...] End: 10-12-2018 Antibody cytomegalovirus cmv Yovani Mejias [employer] Work Phone: Start: 10-12-2018 End: 10-12-2018 Antibody dann-montes eb virus viral capsid vca Yovani Mejias [employer] Work Phone: Start: 10-12-2018 End: 10-12-2018 Antibody herpes smplx type 1 Yovani Orr Work Phone: Start: 10-12-2018 End: 10-12-2018 Antibody rubeola Yovani Magalie Orr Work Phone: Start: 10-12-2018 End: 10-12-2018 Antibody varicella-zoster Yovani Orr Work Phone: Start: 10-12-2018 End: 10-12-2018 Assay of ethanol Yovani Orr Work Phone: Start: 10-12-2018 End: 10-12-2018 Assay of ferritin Yovani Mejias [employer] Work Phone: Start: 10-12-2018 End: 10-12-2018 Assay of iron Yovani Mejias [employer] Work Phone: Start: 10-12-2018 End: 10-12-2018 Assay of parathormone Yovani Mejias [employer] Work Phone: Start: 10-12-2018 End: 10-12-2018 Assay of phosphatase alkaline Yovani Mejias [employer] Phone: Start: 10-12-2018 End: 10-12-2018 Bilirubin total Yovani Mejias [employer] Work Phone: Start: 10-12-2018 End: 10-12-2018 Calcium total Yovani Mejias [employer] Work Phone: Start: 10-12-2018 End: 10-12-2018 CBC, [...] Hepatitis b surf antibody hbsab Yovani Mejias [employer] Work Phone: Start: 10-12-2018 End: 10-12-2018 Hepatitis [...] transplant Kidn ey replaced by transplant Steve LEIHG Work Phone: History of renal transplant Dece ased-donor kidney transplant recipient Ryan Yepez MD Work Phone: History of renal transplant Kidn ey replaced by transplant Daisha A Sobotka DO Work Phone: History of renal transplant Kidn ey replaced by transplant Steve LEIGH Work Phone: History of renal transplant Kidn ey replaced by transplant Steve Munoz MBAPOORVA Work Phone: History of renal transplant Dece ased-donor kidney transplant recipient Steve MORENOBS Work Phone: Plan of Treatment Date Care Activity Detail Author Start: 09-20-2029 Screening for malignant neoplasm of colon [facility] Start: 02-28-2025 Potassium [Moles/volume] in Serum or Plasma POTASSIUM [facility] Start: 01-23-2025 Potassium [Moles/volume] in Serum or Plasma POTASSIUM [facility] Start: 08-31-2024 Screening for malignant neoplasm of lung [facility] Start: 06-17-2024 End: 06-17-2024 ambulatory [facility] Start: 06-17-2024 End: 06-17-2024 Patient encounter procedure [facility] Start: 03-22-2024 Fasting lipid profile LIPID SCREENING [facility] Start: 03-22-2024 Lipid panel [facility] Start: 02-26-2024 End: 02-26-2024 Patient encounter procedure 02/26/2024 9:30 AM EDT Office Visit [facility] [address] [place] [phone] Candie Almaguer MD [address] [place] [phone] [facility] Start: 02-11-2024 End: 02-11-2024 Patient encounter procedure 02/11/2024 10:30 AM EDT Office Visit [facility] [address] [place] [phone] Zuly Bruno NP [address] [place] [phone] [facility] Start: 02-09-2024 End: 02-09-2024 Telemedicine consultation with patient 02/09/2024 3:30 PM EDT Telemedicine Infectious Diseases Care [facility] [address] [place] [phone] Hakeem Alamo MD [address] [place] [address] [facility] Start: 01-15-2024 End: 01-15-2024 ambulatory [facility] Transplant [facility] Start: 01-15-2024 End: 01-15-2024 Patient encounter procedure [facility] Transplant [facility] Start: 01-06-2024 End: 01-06-2026 Echocardiogram 2D complete Echocardiogram 2D complete Echocardiography Routine DARLENE (obstructive sleep apnea) Primary hypertension (CMS/HCC) Bilateral lower extremity edema Shortness of breath Expected: 01/06/2024 (Approximate), Expires: 01/06/2026 [facility] Work Phone: Comment on above: Expected: 01/06/2024 (Approximate), Expi res: 01/06/2026 Start: 01-06-2024 End: 01-06-2024 Patient encounter procedure 01/06/2024 9:00 AM EST Office [facility] [address] [place] [address] Zuly Bruno, BA [address] [place] [phone] [facility] Start: 12-08-2023 End: 09-07-2024 CT Chest WO contrast [facility] Work Phone: Start: 12-01-2023 COVID-19 VACCINE (2 - Moderna risk series) COVID-19 VACCINE (2 - Moderna risk series) [facility] Start: 09-23-2023 End: 09-23-[address] [facility] Start: 09-23-2023 End: 09-23-2023 Telemedicine consultation with patient 09/23/2023 4:00 PM EDT Telemedicine Infectious Diseases Care [facility] [address] [place] [address] Hakeem Alamo MD [address] [place] [address] [facility] Start: 09-15-2023 End: 09-10-2024 ITRACONAZOLE LEVEL [facility] Start: 08-25-2023 End: 08-25-2024 ALLOSCREEN RECIPIENT (POST TX PRA) ALLOSCREEN RECIPIENT (POST TX PRA) Lab Routine Kidney replaced by transplant Aftercare following organ transplant Immunosuppressed status High risk medication use Other general symptoms and signs Abnormal blood chemistry Expected: 08/25/2023, Expires: 08/25/2024 [facility] Comment on above: Expected: 08/25/2023, Expires: Start: 07-31-2023 Influenza vaccination [facility] Start: 06-12-2023 End: 06-12-2023 Patient encounter procedure 06/12/2023 Office Visit Transplant Surgery Steve Munoz MBBS [address] [place] [phone] [facility] Start: 03-11-2023 End: 03-11-2023 Telemedicine consultation with patient 03/11/2023 Telemedicine Urology Ryan Yepez MD [address] [place] [address] [address] [place] [address] [facility] Start: 01-16-2023 End: 01-16-2023 Patient encounter procedure 01/16/2023 Office Visit Transplant Surgery [facility] Transplant [facility] Start: 10-31-2022 End: 10-31-2022 Patient encounter procedure 10/31/2022 Office Visit Transplant Surgery Steve Munoz MBBS [address] [place] [phone] [facility] Start: 09-10-2022 End: 09-10-2023 PSA screening PSA, SCREENING Lab Routine BPH with obstruction/lower urinary tract symptoms Encounter for screening for malignant neoplasm of prostate Expected: 09/10/2022 (Approximate), Expires: 09/10/2023 [facility] Comment on above: Expected: 09/10/2022 (Approximate), Expi res: 09/10/2023 Start: 08-11-2022 End: 08-11-2022 Patient encounter procedure 08/11/2022 Office Visit Urology Ryan Yepez MD [address] [facility] [address] [place] [address] [facility] Start: 07-31-2022 Influenza vaccination [facility] Start: 07-07-2022 End: 07-07-2022 Patient encounter procedure 07/07/2022 Office Visit UrologRyan Batista MD [address] [facility] [address] [place] [address] [facility] Start: 07-07-2022 End: 07-07-2023 FLUORO IMAGING FOR UROLOGY [facility] Comment on above: Expected: 07/07/2022, Expires: 3 1 Occurrences starti ng 07/07/2022 until 07/07/2022 Start: 06-27-2022 End: 06-27-2022 Patient encounter procedure 06/27/2022 Office Visit UrologRyan Batista MD [address] [facility] [address] [place] [address] Urolog Eye [facility] Start: 06-27-2022 End: 06-27-2023 Basic metabolic 2000 panel - Serum or Plasma BASIC METABOLIC PANEL Lab Routine Other hydronephrosis Expected: 06/27/2022, Expires: 06/27/2023 [facility] Comment on above: Expected: 06/27/2022, Expires: 3 Start: 06-27-2022 End: 06-27-2022 Patient encounter procedure 06/27/2022 Appointment Computerized Tomography Scan Ryan Yepez MD [address] [facility] [address] [place] [address] Department of Radiology Start: 06-15-2022 End: 05-16-2023 CT Abdomen and Pelvis WO contrast CT ABDOMEN/PELVIS WITHOUT CONTRAST Imaging Routine FAYE (acute kidney injury) Expected: 06/15/2022 (Approximate), Expires: 05/16/2023 [facility] Work Phone: Comment on above: Expected: 06/15/2022 (Approximate), Expi res: 05/16/2023 Start: 06-12-2022 End: 06-12-2022 Patient encounter procedure 06/12/2022 Office Visit Transplant Surgery Steve Munoz MBBS [address] [place] [address] [facility] Transplant [facility] Start: 06-11-2022 End: 06-11-2023 BK VIRUS DNA QN, PCR, PLASMA BK VIRUS DNA QN, PCR, PLASMA Lab Routine Kidney replaced by transplant Liver replaced by transplant Abnormal blood chemistry Expected: 06/11/2022, Expires: 06/11/2023 [facility] Comment on above: Expected: 06/11/2022, Expires: 3 Start: 06-04-2022 End: 06-04-2022 Patient encounter procedure 06/04/2022 Office Visit [facility] Start: 10-18-2021 End: 10-18-2021 Patient encounter procedure 10/18/2021 Office Visit Transplant Surgery Steve Munoz MBBS [address] [place] [address] [facility] Transplant [facility] Start: 07-31-2021 Influenza vaccination INFLUENZA VACCINE (#1) [facility] Start: 07-26-2021 End: 07-26-2021 Patient encounter procedure 07/26/2021 Office Visit Transplant Surgery Comprehensive Transplant [facility] Start: 2021 Prostate specific antigen measurement [facility] Start: 2021 Screening for malignant neoplasm of lung LUNG CANCER SCREENING [facility] Start: 2021 Zoster vaccine hzv live for subcutaneous use ZOSTER (SHINGLES) VACCINE (1 of 2) [facility] Start: 09-20-2020 Colonoscopy COLORECTAL CANCER SCREENING DISCUSSION [facility] Start: 09-20-2020 Screening for malignant neoplasm of colon [facility] Start: 07-31-2019 Influenza vaccination Flu vaccine (#1) [place], [place] Start: 05-22-2019 Annual Wellness Visit (AWV) Annual Wellness Visit (AWV) [place], [place] Start: 04-18-2019 End: 10-19-2019 Ultrasonography of abdomen US ABDOMEN RUQ/LIVER/GB Routine Cirrhosis of liver without ascites, unspecified hepatic cirrhosis type Expected: 04/18/2019 (Approximate), Expires: 10/19/2019 [facility] Work Phone: Comment on above: Expected: 04/18/2019 (Approximate), Expi res: 10/19/2019 Start: 01-25-2019 End: 01-25-2019 Ambulatory 01/25/2019 Office Visit Gastroenterology Christin Elizabeth, [employer]ODUCTION [employer] [address] [address] Division of Gastroenterology and Hepatology [facility] Start: 11-19-2018 End: 11-19-2018 Ambulatory 11/19/2018 Appointment Pulmonary Diagnostics [facility] Start: 11-19-2018 End: 11-19-2018 [facility]ulatory [facility] Start: 10-19-2018 End: 10-19-2018 Ambulatory Ultrasound Jakob Start: 10-12-2018 End: 10-12-2019 Hemoglobin A1c/Hemoglobin.total mass fraction (Bld) HEMOGLOBIN A1C Routine Alcoholic cirrhosis, unspecified whether ascites present Pre-transplant evaluation for liver transplant Expected: 10/12/2018, Expires: 10/12/2019 [facility] Work Phone: Comment on above: Expected: 10/12/2018, Expires: 9 Start: 10-12-2018 End: 10-12-2019 TYPE AND SCREEN - NOT FOR TRANSFUSION TYPE AND SCREEN - NOT FOR TRANSFUSION Routine Alcoholic cirrhosis, unspecified whether ascites present Pre-transplant evaluation for liver transplant Expected: 10/12/2018, Expires: 10/12/2019 [facility] Work Phone: Comment on above: Expected: 10/12/2018, Expires: 9 Start: 07-31-2018 Influenza vaccination INFLUENZA VACCINE (#1) [facility] Work Phone: Start: 2011 Fasting lipid profile LIPID SCREENING [facility] Work Phone: Start: 2011 Lipid screen Lipid screen [place], [place] Start: 1990 DTaP/Tdap/Td vaccine (1 - Tdap) DTaP/Tdap/Td vaccine (1 - Tdap) [place], [place] Start: 1990 Hepatitis B vaccination HEP B VACCINE (1 of 3 - 19+ 3-dose series) [facility] Start: 1990 Hepatitis B Vaccine (1 of 3 - Risk Recombivax 3-dose series) Hepatitis B Vaccine (1 of 3 - Risk Recombivax 3-dose series) [place], [place] Start: 1990 Third diphtheria, tetanus and acellular pertussis (DTaP) vaccination [facility] Start: 1990 Zoster vaccine hzv live for subcutaneous use ZOSTER (SHINGLES) VACCINE (1 of 2) [facility] Start: 1990 [facility] Start: 1989 Tetanus vaccination TETANUS [facility] Start: 1986 HIV screen HIV screen [place], [place] Start: 02-17-1984 HIV screening HIV SCREENING DISCUSSION [facility] Work Phone: Start: 1983 COVID-19 VACCINE (1) COVID-19 VACCINE (1) [facility] Start: 1982 DTaP/Tdap/Td vaccine (1 - Tdap) DTaP/Tdap/Td vaccine (1 - Tdap) [place] Start: 1977 Pneumococcal 0-64 years Vaccine (1 of 3 - PCV13) Pneumococcal 0-64 years Vaccine (1 of 3 - PCV13) [place] Start: 1977 PNEUMOCOCCAL VACCINE SERIES (1 - PCV) PNEUMOCOCCAL VACCINE SERIES (1 - PCV) [facility] Start: 1977 PNEUMOCOCCAL VACCINE SERIES (1 of 2 - PCV) PNEUMOCOCCAL VACCINE SERIES (1 of 2 - PCV) [facility] Start: 1977 [facility] Start: 02-17-1976 COVID-19 VACCINE (#1) COVID-19 VACCINE (#1) [facility] Start: 02-17-1976 [facility] Start: 1971 COVID-19 VACCINE (#1) COVID-19 VACCINE (#1) [facility] Start: 1971 Hepatitis B vaccination HEP B VACCINE (1 of 3 - 3-dose series) [facility] Start: 1971 Medicare Annual Wellness (AWV) Medicare Annual Wellness (AWV) [facility] Start: 1971 Screening for malignant neoplasm of colon [facility] Start: 1971 Tetanus vaccination [facility] BK VIRUS DNA QN, PCR , PLASMA BK VIRUS DNA QN, PCR, PLASMA Lab Routine Kidney replaced by transplant Liver replaced by transplant Abnormal blood chemistry 06/12/2022 3:38 PM EDT [facility] CALCULI, URINARY (KIDNEY STONE) CALCULI, URINARY (KIDNEY STONE) Fluids Routine 05/19/2022 8:16 AM EDT [facility] Work Phone: CANNABINOIDS, QUANT (URINE)THC CONFIRMATION CANNABINOIDS, QUANT (URINE)THC CONFIRMATION Routine Alcoholic cirrhosis, unspecified whether ascites present ESRD (end stage renal disease) on dialysis Pre-transplant evaluation for liver transplant 10/12/2018 12:57 PM [facility] Work Phone: End: 09-10-2024 CHEM 6 (LYTES, BUN CREA) [facility] EBV VCA IGG AB EBV VCA IGG AB R outine Alcoholic cirrhosis, unspecified whether ascites present ESRD (end stage renal disease) on dialysis Pre-transplant evaluation for liver transplant 10/12/2018 12:57 PM [facility] Work Phone: Fungus identified in Unspecified specimen by Culture [facility] HLA TYPING (SOLID ORGAN) HLA TYPING (SOLID ORGAN) Routine Alcoholic cirrhosis, unspecified whether ascites present ESRD (end stage renal disease) on dialysis Pre-transplant evaluation for liver transplant 10/12/2018 12:57 PM [facility] Work Phone: HSV 1 AND 2 IGG ANTIBODY HSV 1 AND 2 IGG ANTIBODY Routine Alcoholic cirrhosis, unspecified whether ascites present ESRD (end stage renal disease) on dialysis Pre-transplant evaluation for liver transplant 10/12/2018 12:57 PM [facility] Work Phone: 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 specific culture [facility] PLACEMENT NEPHROSTOM Y CATHETER PERCUTANEOUS W/ IMAGE GUIDANCE PLACEMENT NEPHROSTOMY CATHETER PERCUTANEOUS W/ IMAGE GUIDANCE Imaging Routine Hydronephrosis due to obstruction of ureteral orifice FAYE (acute kidney injury) 05/17/2022 11:08 AM EDT [facility] OR POST VOID RESIDUAL OR POST VO ID RESIDUAL OR - OFFICE PERFORMED Routine BPH with obstruction/lower urinary tract symptoms Ordered: 09/10/2022 [facility] Comment on above: Ordered: 09/10/2022 PTH INTACT PTH INTACT Routi ne Alcoholic cirrhosis, unspecified whether ascites present ESRD (end stage renal disease) on dialysis Pre-transplant evaluation for liver transplant 10/12/2018 12:57 PM [facility] Work Phone: RUBEOLA IGG AB (IMMU NE STATUS) RUBEOLA IGG AB (IMMUNE STATUS) Routine Alcoholic cirrhosis, unspecified whether ascites present ESRD (end stage renal disease) on dialysis Pre-transplant evaluation for liver transplant 10/12/2018 12:57 PM [facility] Work Phone: End: 01-16-2024 Standard ECG ECG ECG Routine One Time for 1 Occurrences starting 01/16/2024 until 01/16/2024 [facility] Comment on above: One Time for 1 Occurrences starting 12/31 until 01/16/2024 End: 09-10-2024 TACROLIMUS LEVEL, TROUGH (PRE DRUG LEVEL) [facility] VARICELLA IGG AB (IM M STATUS) VARICELLA IGG AB (IMM STATUS) Routine Alcoholic cirrhosis, unspecified whether ascites present ESRD (end stage renal disease) on dialysis Pre-transplant evaluation for liver transplant 10/12/2018 12:57 PM [facility] Work Phone: Immunizations Immunization Date Immunization Notes Care Provider Fa [facility] 11-03-2023 influenza virus vacc ine, unspecified formulation Generic Provider [facility] 11-03-2023 Moderna SARS-CoV-2 50mcg/0.5mL Booster Generic Provider [facility] Payers Date Payer Category Payer Unknown [id number] 2019 Unknown [facility] HOME [id number] 2019-Present [id number] 2018 Medicaid MEDICAID [place] [facility] DEPT OF JOB xxxxxxxxxxxx 2018-Present [phone] [address] [place] [address] xxxxxxxxxxxx [id number] 2018 Medicaid MEDICAID MEDICAI D [id number] 2018-Present [address] [place] [address] [id number] 2018 Medicaid [id number] 2018 Medicare MEDICARE MEDICAR E PART A AND B xxxxxxxxxxx 2018-Present [phone] [address] [address] [place] [address] xxxxxxxxxxx [id number] 2018 Medicare [id number] 2018 Medicare MEDICARE MEDICAR E A AND B [id number] 2018-Present [address] [place] [address] [id number] [id number].3 .[id number] 2018 Medicare 1.2.840.666484. 1.13.172.2.7.3 .423629.315 1971 Unknown [id number] 2.16.840.1.620868.3.579.2.173 1971 Unknown [id number] 2.16.840.1.875557.3.579.2.173 1971 Unknown [id number] 2.16.840.1.384659.3.579.2.173 1971 Unknown [id number] 2.16.840.1.708010.3.579.2.173 1971 Unknown [id number] 2.16.840.1.482091.3.579.2.173 1971 Unknown [id number] 2.16.840.1.808050.3.579.2.173 1971 Unknown [id number] 2.16.840.1.036879.3.579.2.173 1971 Unknown [id number] 2.16.840.1.032316.3.579.2.173 1971 Unknown [id number] 2.16.840.1.091466.3.579.2.647 1971 Unknown [id number] 2.16.840.1.305088.3.579.2.593 1971 Unknown [id number] 2.16.840.1.472430.3.579.2.593 1971 Unknown [id number] 2.16.840.1.179137.3.579.2.593 1971 Unknown [id number] 2.16.840.1.045779.3.579.2.593 1971 Unknown [id number] 2.16.840.1.315772.3.579.2.593 1971 Unknown [id number] 2.840.1.909444.3.579.2.593 1971 Unknown [id number] 2.16.840.1.264202.3.579.2.593 1971 Unknown [id number] 2.16.840.1.888156.3.579.2.593 1971 Unknown [id number] 2..840.1.193368.3.579.2.593 1971 Unknown [id number] 2..840.1.565092.3.579.2.593 1971 Unknown [id number] 2.16.840.1.381286.3.579.2.593 1971 Unknown [id number] 2.16.840.1.636227.3.579.2.593 1971 Unknown [id number] 2.16.840.1.601418.3.579.2.593 1971 Unknown [id number] 2.16.840.1.518882.3.579.2.593 1971 Unknown [id number] 2.16.840.1.685702.3.579.2.593 1971 Unknown [id number] 2.16.840.1.702107.3.579.2.125 9 1971 Unknown [id number] 2.16.840.1.286883.3.579.2.125 9 1971 Unknown [id number] 2.16.840.1.456152.3.579.2.125 9 1971 Unknown [id number] 2.16.840.1.758305.3.579.2.125 9 1971 Unknown [id number] 2.16.840.1.654823.3.579.2.125 9 1971 Unknown [id number] 2.16.840.1.376502.3.579.2.125 9 1971 Unknown [id number] 2.16.840.1.158906.3.579.2.125 9 1971 Unknown [id number] 2.16.840.1.758604.3.579.2.125 9 1971 Unknown [id number] 2.16.840.1.063062.3.579.2.125 9 1971 Unknown [id number] 2.16.840.1.598836.3.579.2.125 9 1971 Unknown [id number] 2.16.840.1.223475.3.579.2.125 9 1971 Unknown [id number] 2.16.840.1.725795.3.579.2.125 9 1971 Unknown [id number] 2.16.840.1.668386.3.579.2.125 9 1971 Unknown [id number] 2.16.840.1.391637.3.579.2.594 1971 Unknown [id number] 2.16.840.1.219154.3.579.2.594 1971 Unknown [id number] 2.16.840.1.977384.3.579.2.594 1971 Unknown [id number] 2.16.840.1.381568.3.579.2.594 1971 Unknown [id number] 2.16.840.1.561712.3.579.2.594 1971 Unknown [id number] 2.16.840.1.120775.3.579.2.594 1971 Unknown [id number] 2.16.840.1.630072.3.579.2.594 1971 Unknown [id number] 2.16.840.1.240930.3.579.2.594 1971 Unknown [id number] 2.16.840.1.859502.3.579.2.594 1971 Unknown [id number] 2.16840.1.264713.3.579.2.594 1971 Unknown [id number] 2.16.840.1.262913.3.579.2.594 1971 Unknown [id number] 2.16840.1.844505.3.579.2.594 1958 Medicaid [id number] 1958 Medicare [id number] Social History Date Type Detail Facility Start: 07-19-2018 End: 10-19-2018 Tobacco smoking status MAIS Former smoker [facility] Start: 07-19-1988 End: 05-14-2018 History of tobacco use Current smoker [facility] Work Phone: Start: 07-19-1988 End: 05-14-2018 History of tobacco use Cigarette Smoker [facility] Work Phone: Start: 10-19-2018 End: 02-26-2024 Cigarettes smoked current (pack per day) - Reported [facility] End: 07-19-1994 History of tobacco use Chews Tobacco [facility] Work Phone: Start: 1970 Sex Assigned At Not on file [facility] Work Phone: Start: 11-03-2018 Alcohol intake Current non-drinker of alcohol (finding) [place], [place] Start: 06-22-2018 Alcohol Comment Hx of alcoholism [place], [place] Start: 11-03-2018 End: 02-26-2024 Alcohol intake No [facility] Start: 07-19-2018 Tobacco use and exposure Former user [facility] Start: 09-06-2020 End: 02-26-2024 Alcohol intake Ex-drinker (finding) [facility] Start: 07-19-2018 Alcohol Comment stopped 05/14/2018 [facility] Start: 05-05-2022 End: 01-16-2023 Exposure to SARS-CoV-2 (event) Not sure [facility] Start: 07-07-2018 Gender identity Identifies as male gender (finding) [facility] Start: 01-16-2022 Sexual orientation Heterosexual (finding) [facility] Start: 11-03-2023 Tobacco use and exposure [...] Dates [id number] Start: 05-23-2020 [id number] Start: 04-12-2020 [id number], [id number] [facility] Start: 05-17-2022 Comment on above: Description: Implant time-out completed by intra-procedural staff including this RN, surveillance technician, and performing physician. The following was [...] AM Nico Gutiérrez - 03/02/2024 8:14 AM EDTMckenna Stuart - 03/02/2024 8:14 AM Blanca Mckeon [...] up del of broth Contact Info: Specialty ([place]) [phone] Jakob [phone] [facility] [phone] David [phone] Bedside Delivery ([facility]) [phone] [facility] OP RX OUTREACH ADVANCED: Call Information: Date and Time of Contact: 03/02/2024 3:49 PM Method of Contact: By Phone Contact Type: Prescriptions Contactor: [facility] OP Contactee: Patient Contact Outcome: Left message and Follow-up Shipping/Pickup: Medication Name: Myco 360mg and Prograf 0.2mg Contact Info: Specialty ([place]) [phone] [facility] [phone] [facility] [phone] [facility] [phone] Bedside Delivery ([facility]) [phone] [facility] OP RX OUTREACH ADVANCED: Call Information: Date and Time of Contact: 03/02/2024 4:08 PM Method of Contact: By Phone Contact Type: Prescriptions Contactor: [facility] OP Contactee: Patient Shipping/Pickup: Medicare B Refill?: No Medication Name: Myco 360 / prograf 0.2 Delivery Method: Ship Delivery Location: Home Signature Required: No Receive/Pickup Date: 03/03/2024 Shipping Address: [address] [place] [address] Contact Info: Specialty ([place]) [phone] [facility] [phone] [facility] [phone] [facility] [phone] Bedside Delivery ([facility]) [phone] documented in this encounter [facility] 02-26-2024 History of Present illness Narrative Patient Education Patient education regarding the following topic(s) was provided on 02/26/2024: plan of care . Labs today Follow up with Dr. Almaguer as needed. Those in attendance for the education included: patient. Barriers in providing the education included: none. The following methods were used in providing the education: explanation. [facility] handouts given included: After visit summary. The [...] presents to the HF Clinic at the [facility] on 02/26/2024 for initial evaluation of [...] Left; Surgeon: Jyoti Bryant MD, PhD; Location: [facility] MAIN OR PLACEMENT NEPHROSTOMY CATHETER PERCUTANEOUS W/ IMAGE GUIDANCE 05/17/2022 Surgeon: Enzo Heart DO; Location: [facility] INTERVENTIONAL RADIOLOGY (VIR) LIVER TRANSPLANT, ORTHOTOPIC N/A 04/12/2020 Laterality: N/A; Surgeon: LU Palma; Location: [facility] SAME DAY SURGERY MAIN OR KIDNEY TRANSPLANT W/O MARSHALL NEPHRECTOMY N/A 04/12/2020 Laterality: N/A; Surgeon: LU Palma; Location: [facility] SAME DAY SURGERY MAIN OR [...] qd Antithrombotic: no Statin: no ICD: NA PACKAGING MATERIALS INSPECTOR: NA CV Test results: ECHOCARDIOGRAM 01/18/2024 (Final) Interpretation Summary Left Ventricle: Chamber size is normal. Increased wall thickness. Concentric hypertrophy. Normal global systolic function. Regional wall motion is normal. Ejection fraction is normal (55 - 60%). Right Ventricle: Chamber size is normal. Systolic function is low normal. No hemodynamically significnat valve disease. Moderate pericardial effusion. There is no evidence of tamponade. [facility] (01/20/24) Hemodynamic Summary: Baseline Hemodynamics Systemic BP [...] will be BP control. Candie Almaguer M.D. barrel driller Advanced Heart Failure Program Division of Cardiovascular Medicine [facility] [email or web address] ph [phone] fax [phone] documented in this encounter [facility] 02-26-2024 Instructions Marsha Mckeon RN - 02/26/2024 9:30 AM EDT The following instructions were given today: Labs today Follow up with Dr. Almaguer as needed. Your after visit summary (AVS) is viewable in [facility] My Chart. Call RN if you have cardiac questions/concerns M-F 8 to 4:30 ; office # [phone], option 6, then option 2. Guidelines for home management: 1. Continue to monitor weight first thing each morning. 2. Report to the CHF CLINIC ([phone]) any significant weight change. Remember that weight [...] to have labs/tests run outside of the [facility] and you do not hear from us 1-2 days after they are performed, you must call us to ensure we received the results. Office fax # [phone]. No news does not necessarily mean that your tests are normal, it could mean we did not get the results. For questions/updates: please provide your name with spelling, date of and question or update All calls are prioritized and responses researched, if possible, prior to calls being returned. Call Scheduling for any appointment/procedure verification or changes [phone], option 7 or [facility] Heart Schedulers at [phone], option 1. documented in this encounter [facility] 01-23-2024 Nurse Note Jakob wrap & [...] to transport home on home oxygen supply. [facility] 01-23-2024 Miscellaneous Notes Jakob wrap & [...] Pain): verbalization of pain descriptors George Styles ([id number]) PRE OPERATIVE DIAGNOSIS High output congestive heart failure [I50.83] POST OPERATIVE DIAGNOSIS Post-Op Diagnosis Codes: * High output congestive heart failure [I50.83] PROCEDURE PERFORMED Procedure(s) (LRB): LIGATION ANGIOACCESS AVF (Left) Resection of large aneurysmic vein PRIMARY CLOSURE Yes INTRAOPERATIVE FINDINGS No significant abnormalities SURGEON Surgeons and Role: * Jyoti Bryant MD, PhD - Primary ANESTHESIOLOGIST Anesthesiologist: Celena Tiwari MD; Kehinde Gutierrez MD CURATOR MEDICAL MUSEUM: David Jasso APRN-CURATOR MEDICAL MUSEUM Styrene Dehydration Reactor Operator Assisting: Mini Khan MD SURGICAL STAFF Laborer Petroleum Refinery: Zoila Lawrence RN Relief Laborer Petroleum Refinery: Marimar Saravia RN Relief Scrub: Briseyda Self [...] patent, patient breathing easily. Report received from neurosurgical nurse practitioner and report received from anesthesiology. Pt arrived [...] Axillary block. SURGEON(S): Jyoti Bryant MD, PHD MECHANICAL ENGINEER: Mynor Fall MD ESTIMATED BLOOD LOSS: Minimal. [...] Jyoti Bryant MD, PHD ATTENDING SHANNON/Constanza JOB: [id number] DOC: [id number] Patient has been asleep this shift. He continues to deny pain and has been NPO since midnight in preparation of this ligation today. He has his call light in reach and his bed remains low and locked. Problem: Patient Care Overview Goal: Plan of Care Review Outcome: Progressing Flowsheets Taken 01/22/2024 0655 Progress: improving Taken 01/21/20241939 Plan Of Care Reviewed With: patient 01/19/24 [...] overnight coverage, Jasper Gastelum MD, via pager #[phone] Pt- George Styles. Sarah 1082. TM1. Was wondering if he can have his Melatonin order increased to 6mg. Per pt, he usually takes 8mg at home. -SAMI Duffy #[phone] Tati Charles RN Internal Medicine Daily Progress Note Patient: George Styles, 1970, [id number] Physician: Arelis Mera MD, PGY3, Pager #[phone], TM1 service Assessment/Plan: George Styles is a [...] home amlodipine 5mg CAD: non-obstructive CAD on [facility] 2018. - continue home aspirin 81mg [...] Mera MD Mr. Styles was admitted to [address] [place] [address]. On admission to R10, from outside facility a dual RN initial assessment of skin condition was performed by Izzy Gutierrez RN and Leroy Singleton RN. Skin Assessment: Skin within defined limits:Yes Jose Score: 20 Wound Vision Qa Auditor images obtained: No LDA Added: No Based [...] when available. documented in this encounter [facility] 01-23-2024 Nurse Note Home Oxygen Qualification Patient: [...] at 4L of oxygen is also required.) [facility] 01-23-2024 History of Present illness Narrative [...] mg Oral Daily Kelvin Pacheco MD, MBBS cosmetology professor Transplant nephrology Surgery Post-Op Check Note [...] monitor Leonel Harris DO General Surgery Pager [phone] CM went to bedside to talk with patient. Patient states he has home oxygen through [employer]. He uses 2.5 LNC around the clock. Patient states his brother will bring a tank for discharge. Anticipate patient will discharge tomorrow AM. Brother updated. Girish Oro RN, BSN Clinical Administrative Professional Please note that I am a float patient case coordinator and may not cover the same service every day. Please call the main Case Management office at [phone] for up-to-date coverage. Verified patients identity using [...] Daily Progress Note Patient: George Styles, 1970, [id number] Physician: Yury Ozuna MD, PGY1, Pager #[phone], TM1 service Assessment/Plan: George Styles is a [...] by transplant surgery on 01/22 (NPO at ri, updated type & screen) S/p Liver-Kidney Transplant [...] home amlodipine 5mg CAD: non-obstructive CAD on [facility] 2018. - continue home aspirin 81mg [...] with the Nutrition plan outlined in the Addiction Social Worker s note. DVT prophylaxis with lovenox Diet [...] in resident note. Kelvin Pacheco MD, MBBS cosmetology professor Transplant nephrology Patient seen and examined [...] Oral BID AC Kelvin Pacheco MD, JOSHBS cosmetology professor Transplant nephrology Images from the original note were not included. Internal Medicine Daily Progress Note Patient: George Styles, 1970, [id number] Physician: Yury Ozuna MD, PGY1, Pager #[phone], IU2 service Assessment/Plan: George Styles is a 53 [...] home amlodipine 5mg CAD: non-obstructive CAD on [facility] 2018. - continue home aspirin 81mg [...] with the Nutrition plan outlined in the Addiction Social Worker s note. DVT prophylaxis with lovenox Diet [...] SpO2: 94% O2 Device: room air (01/20/24 08) Flow (L/min): 2 (01/19/24 0900) Gen: NAD [...] Bun/Creat/Cl/CO2/Glucose: 15/1.12/105/28/88 (01/20 611) Ptt/Pt/Inr: 30.6/15.5/1.2 (01/20 0611) Doppler US AMIE AVF: Associated attestation - Kelvin Pacheco MD, [...] further questions. Name: Heidy Chatman Phone #: [phone] Date/Time: 01/19/2024 12:08 PM Time Spent: 15 minutes Associated attestation - Fidelina Alarcon RPH - 01/19/2024 12:41 PM EST Department of Pharmacy Admission Medication Reconciliation Note Patient: George Styles Room/Bed: 1082/A I have reviewed the home medication list with the Arabic Professor. The home medication list status is: complete. All changes to the home medication list have been updated in [facility]. Updated HEALTH SERVICE WORKER Med List: Prior to Admission Medications Prescriptions [...] with any further questions. Name: Fidelina Alarcon [facility] Phone #: [phone] Date/Time: 01/19/2024 12:41 PM Internal Medicine Daily Progress Note Patient: George Feliz Jensen, 1970, [id number] Physician: Yury Ozuna MD, PGY1, Pager #[phone], RH6 service Assessment/Plan: Acute Hypoxic Respiratory Insufficiency GARCIA, [...] home amlodipine 5mg CAD: non-obstructive CAD on [facility] 2019. - continue home aspirin 81mg [...] with the Nutrition plan outlined in the Addiction Social Worker s note. DVT prophylaxis with lovenox Diet [...] mg Oral Daily Kelvin Pacheco MD, MBBS cosmetology professor Transplant nephrology Internal Medicine Daily Progress Note Patient: George Styles, 1970, [id number] Physician: Yury Ozuna MD, PGY1, Pager #[phone], RH3 service Assessment/Plan: Updates: - continued diuresis with [...] home amlodipine 5mg CAD: non-obstructive CAD on [facility] 2018. - continue home aspirin 81mg [...] with the Nutrition plan outlined in the Addiction Social Worker s note. DVT prophylaxis with lovenox Diet [...] 315) Bun/Creat/Cl/CO2/Glucose: 16/1.00/108/26/89 (01/18 315) Ptt/Pt/Inr: 30.0/14.5/1.1 (01/185) Associated attestation - Kelvin Pacheco MD, MBBS - 01/18/2024 4:20 PM EST Patient seen and examined at bedside today during multidisciplinary rounds with medicine residents and pharmacy, charts reviewed, laboratory parameters reviewed. Agree with plan of care as mentioned in resident note. Kelvin Pacheco MD, LU cosmetology professor Transplant nephrology Pt known to edm operator from previous admissions. Provided emotional and spiritual support. Patient shared about: family support, medical course Systems Requirements Planner provided: - Supportive presence - Active listening - Validation of feelings/emotions Patient encouraged to request a edm operator as needed. Chaplains are available in-house 24 hours a day and 7 days a week. For urgent matters in [facility], please page [phone]. If the request is not urgent, please enter a consult. Consults are responded to within 24 hours. Senior Staff Systems Requirements Planner Angie Singh Mdiv, [facility] Kirk [phone] [email or web address] On-call TYLOR: call out operator David: 22/06 Pager ,[facility], and Brock Hernandez Pager [phone] 01/18/24 1342 Clinical Encounter Type Visited With Patient Visit Type Introduction Pastoral Time Spent 15 min Referral Other (See Comment) (rounding) Spiritual Assessment Emotional Observation Coping well;Anxiety Hope Observation Specific hope focus Support Observation By Family Interventions Provided Active listening;Supportive presence Facilitated Verbalization of feelings;Identifying support system;Identifying Sources of spiritual well-being Explored Expectations;Treatment decisions Applied Behavior Science Specialist Education Applied Behavior Science Specialist Service Available Yes Educated Patient Outcomes Patient [...] interaction. Name: Fidelina Alarcon RPH Phone #: [phone] Date/Time: 01/18/2024 9:56 AM Discharge Planning Patient [...] Yes Name and Contact information: Gian Styles ([phone]) Would you like to add additional adult [...] oxygen?: Yes Oxygen Provider and Contact : [employer] LiterSolar Capture TechnologiesFlow?: Order for oxygen use?: unknown at this [...] patient on Anticoagulation? : No [id number] [place] [address] - [address] [facility] [address] [facility] [address] Dye Range Tender Does the patient or entry level marketing representative express financial concerns? : No Employed?: Disabled Coping/Stress Concerns about patient s coping and stress?: No Concerns about patient s caregiver s coping and stress?: No Values and Beliefs Cultural or scientologist practices that may impact discharge planning and/or [...] Plan 1. Identified self and role as Administrative Professional. 2. Confirmed and updated demographics and treatment team. 3. Administrative Professional will continue to follow with medical team for any other additional discharge needs. Kasandra DON RN [facility] [phone] *Please note I am float and work Thursday and Thursday every other week. Please call [phone] for assist in my absence. Internal Medicine Daily Progress Note Patient: Goerge Styles, 1970, [id number] Physician: Yury Ozuna MD, PGY1, Pager #[phone], TM3 service Assessment/Plan: Updates: - continue diuresis with [...] home amlodipine 5mg CAD: non-obstructive CAD on [facility] 2018. - continue home aspirin 81mg [...] ordered 2D echo. Kevin Prince MD, MADISONN Import Dispatcher of Clinical Medicine [facility] documented in this encounter [facility] 01-23-2024 Plan of care note Patient [...] Symptoms (Acute Pain): verbalization of pain descriptors [facility] 01-22-2024 Hospital Discharge instructions Arelis Mera [...] your doctor for further instructions. Please call [phone], Option 1 or [phone] to schedule your appointment with the Heart Failure Clinic. 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] POST OPERATIVE DIAGNOSIS Post-Op Diagnosis Codes: * High output congestive heart failure [I50.83] PROCEDURE PERFORMED Procedure(s) (LRB): LIGATION ANGIOACCESS AVF (Left) Resection of large aneurysmic vein PRIMARY CLOSURE Yes INTRAOPERATIVE FINDINGS No significant abnormalities SURGEON Surgeons and Role: * Jyoti Bryant MD, PhD - Primary ANESTHESIOLOGIST Anesthesiologist: Celena Tiwari MD; Kehinde Gutierrez MD CURATOR MEDICAL MUSEUM: David Jasso APRN-CURATOR MEDICAL MUSEUM Styrene Dehydration Reactor Operator Assisting: Mini Khan MD SURGICAL STAFF Laborer Petroleum Refinery: Zoila Lawrence RN Relief Laborer Petroleum Refinery: Marimar Saravia RN Relief Scrub: Briseyda Self Scrub Person: Cinda Mai RN Resident Assisting: Leonel Harris DO Fellow: Miki Mcgowan MD, MBBS COMPLICATIONS None ESTIMATED BLOOD LOSS Minimal SPECIMENS No specimen sent * No specimens in log * Jyoti Bryant MD, PhD January 22, 2024 1:34 PM [facility] Work Phone: 01-22-2024 Nurse Note Arrived to PACU assisted by anesthesiology. Connected to monitors. Turned side to side, OR linens removed, repositioned. Airway patent, patient breathing easily. Report received from neurosurgical nurse practitioner and report received from anesthesiology. Pt arrived awake. VSS. Sats slightly low. Pulm rehab used. Sats currently 3lpm @ 93%. Pt states he uses CPAP nocturnally. A&Ox4. Nerve block left arm, elevated. [facility] 01-22-2024 Surgery Postoperative evaluation and management [...] Axillary block. SURGEON(S): Jyoti Bryant MD, PHD MECHANICAL ENGINEER: Mynor Fall MD ESTIMATED BLOOD LOSS: Minimal. [...] Jyoti Bryant MD, PHD ATTENDING SHANNON/Constanza JOB: [id number] DOC: [id number] [facility] 01-22-2024 Plan of care note Patient [...] 1939 Plan Of Care Reviewed With: patient [facility] 01-20-2024 Consult note Associated Order (s): IP CONSULT TO SURGERY - TRANSPLANT (RENAL) Images from the original note were not included. TRANSPLANT SURGERY CONSULT NOTE: Consult: 01/20/2024, 4:03 PM Personnel Arbitrator: Starla Morris MD Reason for Consult: Requesting Dr Carson Bryant for AVF revision/closure given new onset high output heart failure George Styles is a 53 y.o. male CURRENT HOSPITALIZATION LOS: Admit Date: 01/16/2024 [facility] Hospital LOS: 4 days George Styles [...] GUIDANCE 05/17/2022 Surgeon: Enzo Heart DO; Location: [facility] INTERVENTIONAL RADIOLOGY (VIR) LIVER TRANSPLANT, ORTHOTOPIC N/A 04/12/2020 Laterality: N/A; Surgeon: LU Palma; Location: [facility] SAME DAY SURGERY MAIN OR KIDNEY TRANSPLANT W/O MARSHALL NEPHRECTOMY N/A 04/12/2020 Laterality: N/A; Surgeon: LU Palma; Location: [facility] SAME DAY SURGERY MAIN OR [...] Studies: Labs-CBC: WBC/Hgb/Hct/Plts: 3.79/12.5/38.9/166 (01/20 611) Labs-Chem 7([facility]): Bun/Creat/Cl/CO2/Glucose: 15/1.12/105/28/88 (01/20 611) Na/K+/Phos/Mg/Ca: 141/3.8/--/1.6/-- [...] seen and staffed with Dr. Mcgowan fellow wagon driller Thank you, Starla Morris MD Associated attestation - Jyoti Bryant MD, PhD - 01/22/2024 10:54 AM EST I. Jyoti Bryant MD, PhD, have independently seen and examined the patient, reviewed the labs, discussed the patient with the fellow/resident and agree with the note. [facility] Work Phone: 01-20-2024 Consult note Associated Order (s): IP CONSULT TO SURGERY - TRANSPLANT (RENAL) Images from the original note were not included. TRANSPLANT SURGERY CONSULT NOTE: Consult: 01/20/2024, 4:03 PM Personnel Arbitrator: Starla Morris MD Reason for Consult: Requesting Dr Carson Bryant for AVF revision/closure given new onset high output heart failure Goerge Styles is a 53 y.o. male CURRENT HOSPITALIZATION LOS: Admit Date: 01/16/2024 [facility] LOS: 4 days George Styles [...] DAY SURGERY MAIN OR KIDNEY TRANSPLANT W/O MARSHALL NEPHRECTOMY N/A 04/12/2020 Laterality: N/A; Surgeon: LU [...] Timothy Joseph MD 40 mg at 01/20/24 0918 faMOTIdine (PEPCID) tablet 20 mg 20 mg Oral BID Timothy Joseph MD 20 mg at 01/20/24 0918 Gabapentin (NEURONTIN) capsule 400 mg 400 [...] capsule 0.4 mg 0.4 mg Oral Daily Timotyh Joseph MD 0.4 mg at 01/20/24 0918 [...] Studies: Labs-CBC: WBC/Hgb/Hct/Plts: 3.79/12.5/38.9/166 (01/20 611) Labs-Chem 7([facility]): Bun/Creat/Cl/CO2/Glucose: 15/1.12/105/28/88 (01/20 611) Na/K+/Phos/Mg/Ca: 141/3.8/--/1.6/-- [...] seen and staffed with Dr. Mcgowan fellow wagon driller Thank you, Starla Morris MD Associated attestation - Jyoti Bryant MD, PhD - 01/22/2024 10:54 AM EST Beata Bryant MD, PhD, have independently seen and examined the patient, reviewed the labs, discussed the patient with the fellow/resident and agree with the note. Associated Order(s): IP CONSULT TO HEPATOBILIARY N OS Main Hepatology Consult WebExchange --> IM Consult Serv [facility] --> [facility] Main Hepatology consult service [...] DAY SURGERY MAIN OR KIDNEY TRANSPLANT W/O MARSHALL NEPHRECTOMY N/A 04/12/2020 Laterality: N/A; Surgeon: LU Palma; Location: [facility] SAME DAY SURGERY MAIN OR OTHER [...] (order for outpatient) Please SecureChat or Call ([phone]) for any questions. Await attending attestation for final recommendations. Hank Noel MD Division of Gastroenterology, Hepatology, and Nutrition Clinical Fellow, PGY-5 Pager: [phone] For urgent/stat calls or consults 5pm to 7am, please page the on-call GI fellow on QGenda. [facility]--> Internal Medicine--> Gastroenterology, Hepatology, & Nutrition--> 1st Call Janae Hatfield For urgent/stat calls or consults 7am to 5pm during the weekend, please page the on-call GI fellow on QGenda. [facility]--> Internal Medicine--> Gastroenterology, Hepatology, & Nutrition--> All Hep & East Wknd Cons Fel Day For follow up questions regarding this patient 7am to 5pm during the weekday, contact the Hepatology consults fellow or CARLOS A on QGenda. [facility]--> Internal Medicine--> Gastroenterology, Hepatology, & [...] Estrada MD, MSc documented in this encounter [facility] 01-19-2024 Nurse Note 01/19/24 0900 Vitals [...] rest, 95-96% when talking/moving. Paulette Cordon RN [facility] 01-19-2024 Nurse Note Paged overnight coverage, Jasper Gastelum MD, via pager #[phone] Pt- George Styles. Sarah 1082. TM1. Was wondering if he can have his Melatonin order increased to 6mg. Per pt, he usually takes 8mg at home. -SAMI Duffy #[phone] Tati Charles RN [facility] 01-18-2024 Consult note Associated Order (s): IP CONSULT TO HEPATOBILIARY N [facility] Main Hepatology Consult WebExchange --> IM Consult Serv [facility] --> [facility] Main Hepatology consult service [...] GUIDANCE 05/17/2022 Surgeon: Enzo Heart DO; Location: [facility] INTERVENTIONAL RADIOLOGY (VIR) LIVER TRANSPLANT, ORTHOTOPIC N/A 04/12/2020 Laterality: N/A; Surgeon: LU Palma; Location: [facility] SAME DAY SURGERY MAIN OR KIDNEY TRANSPLANT W/O MARSHALL NEPHRECTOMY N/A 04/12/2020 Laterality: N/A; Surgeon: LU Palma; Location: [facility] SAME DAY SURGERY MAIN OR [...] (order for outpatient) Please SecureChat or Call ([phone]) for any questions. Await attending attestation for final recommendations. Hank Noel MD Division of Gastroenterology, Hepatology, and Nutrition Clinical Fellow, PGY-5 Pager: [phone] For urgent/stat calls or consults 5pm to 7am, please page the on-call GI fellow on QGenda. [facility]--> Internal Medicine--> Gastroenterology, Hepatology, & Nutrition--> 1st Call Janae Hatfield For urgent/stat calls or consults 7am to 5pm during the weekend, please page the on-call GI fellow on QGenda. [facility]--> Internal Medicine--> Gastroenterology, Hepatology, & Nutrition--> All Hep & East Wknd Cons Fel Day For follow up questions regarding this patient 7am to 5pm during the weekday, contact the Hepatology consults fellow or CARLOS A on QGenda. [facility]--> Internal Medicine--> Gastroenterology, Hepatology, & Nutrition--> All Hep Consult Fel OR Transplant Hep Consults CARLOS A Day [...] (order for outpatient) Michael Estrada MD, MSc [facility] Work Phone: 01-16-2024 Plan of care note Internal Medicine Daily Progress Note Patient: George Styles, 1970, [id number] Physician: Arelis Mera MD, PGY3, Pager #[phone], TM7 service Assessment/Plan: George Styles is a 53 [...] home amlodipine 5mg CAD: non-obstructive CAD on [facility] 2018. - continue home aspirin 81mg [...] MD, on rounds. Signed, Arelis Mera MD [facility] 01-16-2024 Nurse Note Mr. Styles was admitted to [address] [place] [address]. On admission to [facility], from outside facility a dual RN initial assessment of skin condition was performed by Izzy Gutierrez RN and Leroy Singleton RN. Skin Assessment: Skin within defined limits:Yes Jose Score: 20 Wound Vision Qa Auditor images obtained: No LDA Added: No Based [...] room closest to nurses station when available. [facility] 01-16-2024 History and physical note Images from the original note were not included. Internal Medicine Admission History & Physical Patient: George Styles, 1970, [id number] Physician: Timothy Joseph MD, PGY1, Pager #[phone], TM 1 service Date of face to [...] GUIDANCE 05/17/2022 Surgeon: Enzo Heart DO; Location: [facility] INTERVENTIONAL RADIOLOGY (VIR) LIVER TRANSPLANT, ORTHOTOPIC N/A 04/12/2020 Laterality: N/A; Surgeon: LU Palma; Location: [facility] SAME DAY SURGERY MAIN OR KIDNEY TRANSPLANT W/O MARSHALL NEPHRECTOMY N/A 04/12/2020 Laterality: N/A; Surgeon: LU Palma; Location: [facility] SAME DAY SURGERY MAIN OR [...] itraconazole Fax results to: Dr. White - [phone] Transplant Neph - [phone] Gabapentin 400 MG capsule Sig: Take 1 [...] erythema: Skin: No jaundice or rash Neuro: 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 [...] home amlodipine 5mg CAD: non-obstructive CAD on [facility] 2018. - continue home aspirin 81mg daily Gout: continue home allopurinol 200mg daily BPH: continue home flomax 0.4mg daily Complexity. Obesity Body mass index is 32.8 kg/m . - Follow with PCP for dietary and lifestyle modifications. Any conditions listed below are present on admission unless otherwise specified. . DVT prophylaxis with lovenox Disposition: admitted to [facility] Code status is Full Staffed [...] Pierson, Luisa Steven, Renee Rivera, Daisha Max Training And Development Professional: José Miguel Garnica All Txt: 04/13/2020 (Kidney), [...] results found for: CYCLOSPORIN , CYCLOSPORIN2 , [id number] , CYCLORAND No results found for: SIROLIMUS [...] request in chart. Kevin Prince MD Pager [phone] [facility] 01-16-2024 History and physical note Images from the original note were not included. Internal Medicine Admission History & Physical Patient: George Styles, 1970, [id number] Physician: Timothy Joseph MD, PGY1, Pager #[phone], TM 1 service Date of face to [...] GUIDANCE 05/17/2022 Surgeon: Enzo Heart DO; Location: [facility] INTERVENTIONAL RADIOLOGY (VIR) LIVER TRANSPLANT, ORTHOTOPIC N/A 04/12/2020 Laterality: N/A; Surgeon: LU Palma; Location: [facility] SAME DAY SURGERY MAIN OR KIDNEY TRANSPLANT W/O MARSHALL NEPHRECTOMY N/A 04/12/2020 Laterality: N/A; Surgeon: LU Palma; Location: [facility] SAME DAY SURGERY MAIN OR [...] itraconazole Fax results to: Dr. White - [phone] Transplant Neph - [phone] Gabapentin 400 MG capsule Sig: Take 1 [...] erythema: Skin: No jaundice or rash Neuro: 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 [...] home amlodipine 5mg CAD: non-obstructive CAD on [facility] 2018. - continue home aspirin 81mg daily Gout: continue home allopurinol 200mg daily BPH: continue home flomax 0.4mg daily Complexity. Obesity Body mass index is 32.8 kg/m . - Follow with PCP for dietary and lifestyle modifications. Any conditions listed below are present on admission unless otherwise specified. . DVT prophylaxis with lovenox Disposition: admitted to [facility] Code status is Full Staffed [...] Pierson, Luisa Steven, Renee Rivera, Daisha Max Training And Development Professional: José Miguel Garnica All Txt: 04/13/2020 (Kidney), [...] results found for: CYCLOSPORIN , CYCLOSPORIN2 , [id number] , CYCLORAND No results found for: SIROLIMUS [...] request in chart. Kevin Prince MD Pager [phone] documented in this encounter [facility] 01-12-2024 History of Present illness Narrative [facility] [...] Prograf 0.2 MG Contact Info: Specialty ([place]) [phone] [facility] [phone] [facility] [phone] [facility] [phone] Bedside Delivery ([facility]) [phone] [facility] RX OUTREACH ADVANCED: Call Information: Date and Time of Contact: 01/25/2024 10:23 AM Method of Contact: By Phone Contact Type: Prescriptions Contactor: [facility] Contactee: Patient Contact Outcome: Left message (prograf myco) Contact Info: Specialty ([place]) [phone] [facility] [phone] [facility] [phone] David [phone] Bedside Delivery ([facility]) [phone] documented in this encounter [facility] 01-12-2024 History of Present illness [...] Name: Prograf 0.2 MG Contact Info: Specialty ([place]) [phone] [facility] [phone] [facility] [phone] [facility] [phone] Bedside Delivery ([facility]) [phone] [facility] RX OUTREACH ADVANCED: Call Information: Date and Time of Contact: 01/25/2024 10:23 AM Method of Contact: By Phone Contact Type: Prescriptions Contactor: [facility] Contactee: Patient Contact Outcome: Left message (prograf myco) Contact Info: Specialty ([place]) [phone] [facility] [phone] [facility] [phone] [facility] [phone] Bedside Delivery ([facility]) [phone] [facility] RX OUTREACH ADVANCED: Call Information: Date and Time of Contact: 01/27/2024 10:19 AM Method of Contact: By Phone Contact Type: Prescriptions Contactor: [facility] Contactee: Patient Contact Outcome: Left message (myco prograf) Contact Info: Specialty ([place]) [phone] [facility] [phone] [facility] [phone] David [phone] Bedside Delivery ([facility]) [phone] documented in this encounter [facility] 01-12-2024 History of Present illness [...] Name: Prograf 0.2 MG Contact Info: Specialty ([place]) [phone] [facility] [phone] [facility] [phone] [facility] [phone] Bedside Delivery ([facility]) [phone] [facility] RX OUTREACH ADVANCED: Call Information: Date and Time of Contact: 01/25/2024 10:23 AM Method of Contact: By Phone Contact Type: Prescriptions Contactor: [facility] Contactee: Patient Contact Outcome: Left message (prograf myco) Contact Info: Specialty ([place]) [phone] [facility] [phone] [facility] [phone] David [phone] Bedside Delivery ([facility]) [phone] [facility] RX OUTREACH ADVANCED: Call Information: Date and Time of Contact: 01/27/2024 10:19 AM Method of Contact: By Phone Contact Type: Prescriptions Contactor: [facility] Contactee: Patient Contact Outcome: Left message (myco prograf) Contact Info: Specialty ([place]) [phone] [facility] [phone] [facility] [phone] David [phone] Bedside Delivery ([facility]) [phone] [facility] RX OUTREACH ADVANCED: Call Information: Date and Time of Contact: 02/01/2024 3:22 PM Contact Type: Prescriptions Contactor: [facility] Contactee: Patient Contact Outcome: Left message Shipping/Pickup: Medication Name: Mycophenolate 360mg and Prograf 0.2mg Pack Contact Info: Specialty ([place]) [phone] [facility] [phone] [facility] [phone] David [phone] Bedside Delivery ([facility]) [phone] documented in this encounter [facility] 01-06-2024 History of Present illness [...] The neurologist wanted to send him to [facility] neurology but it is out [...] I have advised pt to contact insurance [employer] to see if they can provide a [...] 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) documented in this encounter [facility] 10-06-2023 History of Present illness Narrative [...] ; Prograf 0.2 MG Contact Info: Specialty ([place]) [phone] Jakob [phone] [facility] [phone] David [phone] Bedside Delivery ([facility]) [phone] [facility] RX OUTREACH ADVANCED: Call Information: Date and Time of Contact: 10/23/2023 2:00 PM Method of Contact: By Phone Contact Type: Prescriptions Contactor: [facility] Contactee: Patient Contact Outcome: Left message and Call back later Shipping/Pickup: Medication Name: Mycophenolate 360mg and Prograf 0.2mg Contact Info: Specialty ([place]) [phone] [facility] [phone] [facility] [phone] David [phone] Bedside Delivery ([facility]) [phone] documented in this encounter [facility] 09-11-2023 Miscellaneous Notes Pt discharged [...] the oxygen during the night. pt will draft roller picker his oxygen from [employer] [facility], 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 This [...] Patient seen ambulating in the velazquez with GRIZZLY WORKER. Patient was mildly short of breath [...] & HR 114. Messaged [facility], via Blacklane secure chat, Temp 100.8. His tylenol order [...] short period of time. 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 Episode of [...] motor deficit. Lab Data: WBC/Hgb/Hct/Plts: 4.36/12.8/39.6/222 (09/03 0402) Na/K+/Phos/Mg/Ca: 136/4.1/--/1.6/-- (09/03 402) Bun/Creat/Cl/CO2/Glucose: 17/1.20/104/24/112 [...] Critical Care Medicine Message [facility], via [facility] secure chat, Good evening, just an FYI, [...] short period of time. 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 This morning, [...] [address] Loera here also (licensed vocational nurse) Dr. Diaz aware of pt's increased oxygen [...] Intervention: Manage Suspected/Actual Infection Flowsheets (Taken 08/30/2023 104) Fever Reduction/Comfort Measures: fluid intake increased lightweight [...] PGY-2 Mr. Styles was admitted to [address] [place] [address]. On admission to [facility], from home a [...] when available. documented in this encounter [facility] 09-11-2023 History of Present illness Narrative Provided follow-up emotional and spiritual support. Patient shared about rosemary of discharge and looking forward to seeing family Systems Requirements Planner provided: - Supportive presence - Active listening - Validation of feelings/emotions Patient encouraged to request a edm operator as needed. Chaplains are available in-house 24 hours a day and 7 days a week. For urgent matters in [facility], please page [phone]. If the request is not urgent, please enter a consult. Consults are responded to within 24 hours. Senior Staff Systems Requirements Planner Angie Singh Mdiv, [facility] [place] [phone] [email or web address] 22/06 On-call [place]: [phone] 22/06 Pager [facility], and Brock Hernandez Pager [phone] 09/11/23 1430 Clinical Encounter Type Visited With Patient Visit Type Follow-up Pastoral Time Spent 15 min Referral Other (See Comment) (rounding) Spiritual Assessment Spiritual Observation Spirituality helpful Emotional Observation Coping well Hope Observation Specific hope focus Support Observation By Family Interventions Provided Active listening;Supportive presence Facilitated Verbalization of feelings Explored Expectations Applied Behavior Science Specialist Education Applied Behavior Science Specialist Service Available Yes Educated Patient Plan of Care Continue Visiting PRN Images from the original note were not included. [facility] ([facility] Note: Non-Verbal Med Rec [facility] received the following discharge prescription(s): Total cost is $0. I have reviewed the Discharge Rx Reconciliation Report. The discharge prescription(s) will be delivered to the patient on 09/11/2023. Dimitrios Gurrola [facility],PharmD Specialty ([place]) [phone] Jakob [phone] Jakob Bedside Delivery [phone] [facility] [phone] [facility] Bedside Delivery [phone] David [phone] David Bedside Delivery [phone] [place] [phone] [place] [phone] Internal Medicine Daily Progress Note Patient: George Styles, 1970, [id number] Physician: Evan Kelly MD, PGY-1, TM1 service Subjective/Interval History: Patient continues to require oxygen overnight for desaturations. With insurance limitations, only accepting agency to provide home oxygen backed out. After calling them to discuss, Lynn stated she would be willing to have patient drive to their facility to draft roller picker supplies, however they close at 5pm. 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 2018. - continue home aspirin 81mg [...] 5.05 (H) 11/19/2018 Kevin Prince MD, SERA Import Dispatcher of Clinical Medicine [facility] Images from the original note were not included. Final Discharge Planning and Transportation Final Discharge Planning Discharge Disposition: Home Services at Discharge: Outpatient clinical services (ie: lab draws, transfusions, injectables) (Home Oxygen by [employer]) Selected Continued Care - Admitted Since 08/28/2023 Durable Medical Equipment Coordination complete. 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 Addendum 1520 [facility] [employer] [facility] [employer] notified this CM they are out of patient's insurance area and will not be able to service this patient at time of discharge. Provider notified. Addendum 3882 Dr Kelly called [employer] spoke to Lynn and she said they are willing to accept patient if the patient would drive to the [place] office and draft roller picker the supplies. Patient is willing to [...] Lora Colón RN, MSN, CCM, CMCN Clinical Administrative Professional- [facility] Transplant #[phone] Department of Pharmacy Transplant Note Patient: George [...] dose adjustment Name: Matt Kramer RPh,PharmD Phone: [phone] Date/Time: 09/10/2023 11:33 AM This CM sent referral via [employer] for O2 concentrator to 4 agencies Start date today Timer set for 1531 [employer] [facility] [employer] Addendum 3341 One accepting company reserved in [employer] [address] [place] [address] [place] [address] Lora Colón RN, MSN, [facility], [facility] Clinical Administrative Professional- [facility] Transplant #[phone] NUTRITION FOLLOW-UP Nutrition Plan of Care: 1. Continue current diet order. 2. No oral supplements warranted at this time. 3. Monitor for significant weight changes. Monitor GI, skin integrity. 4. Monitor and encourage po intakes with goal of average po being 75-100%. 5. statistical technician to follow. ___ Met with patient [...] Will continue to monitor. Cecilia Mattson DTR Pager:[phone] Transplant Infectious Disease (Team 3) Progress Note [...] sign off. Please Epic message or page [phone] with questions. 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 2018. - continue home aspirin 81mg [...] to follow. Please Epic message or page [phone] with questions. 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 2018. - continue home aspirin 81mg daily, holding atorvastatin 20mg daily Gout: continue home allopurinol 200mg daily BPH: continue home flomax 0.4mg daily DVT PPX: SQH Code Status: Full Code Disposition: Pending clinical course. Anticipate eventual discharge home. Discussed with team and attending, Kevin Prince MD, on rounds. 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 2018. - continue home aspirin 81mg [...] 5.05 (H) 11/19/2018 Kevin Prince MD, SERA Import Dispatcher of Clinical Medicine [facility] Transplant Infectious Disease [...] to follow. Please Epic message or page [phone] with questions. Ann Marie Haskins MD PGY-4, [...] he continues to improve. Please message via [employer] secure chat or page with any questions or concerns. Evan White DO Import Dispatcher Division of Infectious Disease Transplant Infectious Disease [...] appendix 6. No abdominopelvic ascites. Assessment: George Jensen is a 53yo M with EtOH cirrhosis [...] to follow. Please Epic message or page [phone] with questions. Evan White DO Transplant Infectious Diseases Images from the original note were not included. Pulmonary/Critical Care Medicine Daily Progress Note Reason for Consultation: bronch for infectious workup Requesting Physician: Dr. Prince CURRENT HOSPITALIZATION: Admit Date: 08/28/2023 [facility] LOS: 9 days Impression 1. [...] and interpreted reviewed the radiographic data in IHIS/Cvgram.me/Deep-Secure. 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 2018. - continue home aspirin 81mg [...] 5.05 (H) 11/19/2018 Kevin Prince MD, MADISONN Import Dispatcher of Clinical Medicine [facility] Images from the original note were not included. Pulmonary/Critical Care Medicine Daily Progress Note Reason for Consultation: bronch for infectious workup Requesting Physician: Dr. Prince CURRENT HOSPITALIZATION: Admit Date: 08/28/2023 [facility] Hospital LOS: 8 days Impression 1. [...] and interpreted reviewed the radiographic data in IHIS/powershare/Deep-Secure. Acute Occupational Therapy Evaluation Prior to Admission [...] Assessment: Transfer Assessment: Sit to Stand Transfer [place] Level: Sit->Stand: independent Skilled Intervention/Details: Sit->Stand: x1 from EOB, x1 from toilet Stand to Sit Transfer [place] Level: Stand->Sit: independent Skilled Intervention/Details: Stand->Sit: x1 to toilet, x1 to EOB Functional Mobility: Functional Mobility [place] Level: Functional Mobility/Gait: independent Ambulation Distance (Feet): 20 Skilled Intervention/Details - Functional Mobility/Gait: pt performed functional mobility to/from RR w/ no overt LOB Outcome Score(s): CURRENT [facility] Daily Activity Inpatient Short Form Putting on/Taking Off Lower Body Clothin - A Little Assistance Bathin - A Little Assistance Toiletin - A Little Assistance Putting on/Taking Off Upper Body Clothin - No Assistance Groomin - No Assistance Eatin - No Assistance CURRENT [facility] Activity Raw Score: 21 CURRENT [facility] Activity Functional Limitation/Modifier: 32.79% Currently [...] Acute Physical Therapy Evaluation Prior to Admission [facility] score(s): PRIOR LEVEL AM-PAC Mobility Raw Score: [...] Hearing: no gross deficits noted Extremity Assessments: SAW Assessment RUE Assessment: Within Functional Limits LUE Assessment LUE Assessment: Within Functional Limits RLE Assessment RLE Assessment: Within Functional Limits LLE Assessment LLE Assessment: Within Functional Limits Sensation Overall Sensation: Intact Mobility Assessment: Supine to Sit Mobility [place] Level: Supine->Sit: modified independence Bed Features/Set-up: Supine->Sit: Head of bed elevated Sit to Supine Mobility [place] Level: Sit->Supine: not tested Balance: Sitting Balance [...] environment. Transfer Assessment: Sit to Stand Transfer [place] Level: Sit->Stand: independent Skilled Intervention/Details: Sit->Stand: From EOB x 2 without difficulty. Stand to Sit Transfer [place] Level: Stand->Sit: independent Assistive Device: Stand->Sit: armed chair Skilled Rationale: Verbal cues, Positioning Gait/Functional Mobility: Gait Assessment [place] Level: Gait: stand-by assist Assistive Device: Gait: rollator Ambulation Distance (Feet): 400 Gait Deviations Identified: decreased grace, decreased gait speed Gait Skilled Rationale: verbal, upright posture, increase step length, increase foot clearance Skilled Intervention/Details - Gait: Reasonable foot clearnce without loss of balance but endorsing dyspnea as 6-7/10. 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 2018. - continue home aspirin 81mg [...] 5.05 (H) 11/19/2018 Kevin Prince MD, SERA Import Dispatcher of Clinical Medicine [facility] Transplant Infectious Disease (Team [...] to follow. Please Epic message or page [phone] with questions. Evan White DO Transplant Infectious Diseases Images from the original note were not included. Internal Medicine Daily Progress Note Patient: George Styles, 1970, [id number] Physician: Evan Kelly MD, PGY-1, TM1 service 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 2018. - continue home aspirin 81mg [...] with P 450 system Kevin Prince MD, MADISONN Import Dispatcher of Clinical Medicine [facility] ERT Note: ERT called [...] PhD Internal Medicine and Pediatrics PGY-3 [facility] Brief plan of care update: [...] PhD Internal Medicine and Pediatrics PGY-3 [facility] Transplant Infectious Disease (Team 3) [...] to follow. Please Epic message or page [phone] with questions. Evan White DO Transplant Infectious Diseases Internal Medicine Daily Progress Note Patient: George Styles, 1970, [id number] Physician: Evan Kelly MD, PGY-1, TM1 service 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 2018. - continue home aspirin 81mg [...] 5.05 (H) 11/19/2018 Kevin Prince MD, SERA Import Dispatcher of Clinical Medicine [facility] Comprehensive Transplant [facility] Internal Medicine Daily Progress Note Patient: George Styles, 1970, [id number] Physician: Evan Kelly MD, PGY-1, TM1 service Subjective/Interval History: No acute events overnight. Patient with increasing oxygen requirements during bronchoscopy today. Returned to 4L NC post procedure. Patient denies any current shortness of breath. All questions answered by the team on rounds. 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 2018. - continue home aspirin 81mg [...] 5.05 (H) 11/19/2018 Kevin Prince MD, SERA Import Dispatcher of Clinical Medicine [facility] Progression of Care Note [...] Lora Colón RN, MSN, CCM, CMCN Clinical Administrative Professional- R10 Transplant #[phone] Made introductory visit with patient. Provided emotional and spiritual support. Patient shared about: - Source of Rosemary: Camping/Fishing/Family - Spirituality/Cheondoism Affiliation: raised [employer] - Family Support/history - Experience with illness/hospital course - Hopes for healing/future Systems Requirements Planner provided: - Supportive presence - Active listening - Validation of feelings/emotions - Pledged prayer Patient encouraged to request a edm operator as needed. Chaplains are available in-house 24 hours a day and 7 days a week. For urgent matters in [facility], please page [phone]. If the request is not urgent, please enter a consult. Consults are responded to within 24 hours. Senior Staff Systems Requirements Planner Angie Singh Mdiv, [facility] [place] [phone] [email or web address] 22/06 On-call Kirk: [phone] 22/06 Pager ,BSLydia, and Brock Hernandez Pager [phone] 09/02/23 1112 Clinical Encounter Type Visited With Patient Visit Type Introduction Pastoral Time Spent 15 min Referral Other (See Comment) (rounding) Spiritual Assessment Spiritual Observation Spirituality helpful Emotional Observation Coping well Hope Observation Specific hope focus Support Observation By Family Interventions Provided Active listening;Supportive presence Facilitated Verbalization of feelings Explored Expectations Applied Behavior Science Specialist Education Applied Behavior Science Specialist Service Available Yes Educated Patient Outcomes Patient Outcomes Reduced distress Plan of Care Continue Visiting PRN NUTRITION RISK SCREENING NOTE Nutrition Plan of Care: 1. Continue current diet order. 2. No oral supplements warranted at this time. 3. Monitor for significant weight changes. Monitor GI and skin integrity. 4. Monitor and encourage po intakes with goal of average po being 100%. 5. statistical technician to follow. George Styles is a 53 y.o. 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 His wilton kidney disease was noted to be presumed hepatorenal syndrome. His post-transplant course was noteworthy for nephrostomy tube (05/17/2022-09/10/2022) due to concern for ureteral stone. He presents as a direct admission for fever, cough, for infectious workup. Pt unavailable and information obtained via chart review Artist Relationship Manager Screening Pt's appetite is good. Pt with [...] with meds Food Allergies reviewed:Shellfish Cultural or Cheondoism Restrictions/Preferences: None GI: Last Bowel Movement: 09/01/23 [...] time. Will continue to monitor. RHIANNON BirminghamR Pager:[phone] Internal Medicine Daily Progress Note Patient: George Styles, 1970, [id number] Physician: Evan Kelly MD, PGY-1, TM1 service 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 2018. - continue home aspirin 81mg [...] as outlined above. Kevin Prince MD Pager [phone] Summary: Pharmacy Med Rec Department of Pharmacy [...] further questions. Name: Heidy Chatman Phone #: [phone] Date/Time: 09/01/2023 2:01 PM Time Spent: 15 minutes Associated attestation - Matt Kramer RPh,PharmD - 09/01/2023 2:28 PM EDT Department of Pharmacy Admission Medication Reconciliation Note Patient: George Styles Room/Bed: 1062/A I have reviewed the home medication list with the Arabic Professor. All changes to the home medication list have been updated in IHIS. Updated HEALTH SERVICE WORKER Med List: Prior to Admission Medications Prescriptions [...] questions. Name: Matt Kramer RPh,PharmD Phone #: [phone] Date/Time: 09/01/2023 2:28 PM Transplant Infectious Disease [...] crypto antigen, EBV PCR -follow pending histo, [id number] labs These recommendations were discussed with the primary team. Transplant ID (Team 3) will continue to follow. Please Epic message or page [phone] with questions. Evan White DO Transplant Infectious Diseases Internal Medicine Daily Progress Note Patient: George Styles, 1970, [id number] Physician: Evan Kelly MD, PGY-1, TM1 service 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 2018. - continue home aspirin 81mg [...] % I/O last 3 completed shifts: In: 0 [P.O.:1659] Out: 2074 [Urine:2074] No intake/output data [...] 5.05 (H) 11/19/2018 Kevin Prince MD, SERA Import Dispatcher of Clinical Medicine [facility] Transplant [facility] Discharge Planning Patient [...] Yes Name and Contact information: Gian Styles ([phone]) Reviewed and Updated in Demographics? : Yes [...] Is the patient on Anticoagulation? : No [id number] [place] [address] [address] [place] [address] Dye Range Tender Does the patient or entry level marketing representative express financial concerns? : No Employed?: Disabled Coping/Stress Concerns about patient s coping and stress?: No Concerns about patient s caregiver s coping and stress?: No Values and Beliefs Cultural or scientologist practices that may impact discharge planning and/or [...] Plan 1. Identified self and role as Administrative Professional. 2. Confirmed and updated demographics and treatment team. 3. Administrative Professional will continue to follow with medical team/pt for any other additional discharge needs. Kasandra DON RN [facility] [phone] *Please note I am float CM and work Thursday and Thursday every other week. Please call [phone] for assist in my absence. Internal Medicine Daily Progress Note Patient: George Styles, 1970, [id number] Physician: Evan Kelly MD, PGY-1, TM1 service 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 2018. - continue home aspirin 81mg [...] 5.05 (H) 11/19/2018 Kevin Prince MD, SERA Import Dispatcher of Clinical Medicine [facility] Internal Medicine Daily Progress Note Patient: George Styles, 1970, [id number] Physician: Laurel Serrano MD, PhD, PGY-3, TM1 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 2018. - continue home aspirin 81mg daily, atorvastatin 20mg daily Gout: continue home allopurinol 200mg daily BPH: continue home flomax 0.4mg daily DVT PPX: SQH Code Status: Full Code Disposition: Pending clinical course. Anticipate eventual discharge home. Discussed with team and attending, Kevin Prince MD, on rounds. Signed, Laurel Serrano MD, PhD documented in this encounter [facility] 09-10-2023 Hospital Discharge instructions Laurel Serrano MD, [...] a sleep doctor. You will need to draft roller picker the oxygen concentrator when you leave [...] on healthy foods. documented in this encounter [facility] 09-01-2023 Consult note Associated Order (s): IP CONSULT TO PULMONOLOGY Pulmonary Medicine Inpatient Consultation Reason for Consultation: bronch for infectious workup Requesting Physician: Dr. Prince Pulmonary Attending Physician: Dr. Diaz CURRENT HOSPITALIZATION: Admit Date: 08/28/2023 [facility] Hospital LOS: 4 days Impression/Recommendations: George [...] Recommendations: - Plan to bronch tomorrow morning. NPO@CA, order placed - would repeat HIV, last test March Thank you for the consult. We will continue to follow. Izzy Loera MD Pulmonary and Critical Care Fellow [phone] History of Presenting Illness: Mr Styles confirms history as documented in the chart. 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 Other histories as documented in the [...] had any ill contacts. He traveled to [place] to [facility] in May. REVIEW OF SYSTEMS A complete [...] GUIDANCE 05/17/2022 Surgeon: Enzo Heart DO; Location: [facility] INTERVENTIONAL RADIOLOGY (VIR) LIVER TRANSPLANT, ORTHOTOPIC N/A 04/12/2020 Laterality: N/A; Surgeon: LU Palma; Location: [facility] SAME DAY SURGERY MAIN OR KIDNEY TRANSPLANT W/O MARSHALL NEPHRECTOMY N/A 04/12/2020 Laterality: N/A; Surgeon: LU Palma; Location: [facility] SAME DAY SURGERY MAIN OR [...] Alamo MD I can be reached via [employer]lane secure message (preferred) or Pager #[phone] documented in this encounter [facility] 08-28-2023 History and physical note Images from the original note were not included. Internal Medicine Admission History & Physical Patient: George Styles, 1970, [id number] Physician: Aric Turner MD, PGY1, Pager #[phone], TM service Date of face to face [...] So he went to see the transplant lip and gate builder. He was found elevated Cr and asked [...] Appetite is ok now. Urine is about 3941-2575 ml every day. Stool every day, no [...] GUIDANCE 05/17/2022 Surgeon: Enzo Heart DO; Location: [facility] INTERVENTIONAL RADIOLOGY (VIR) LIVER TRANSPLANT, ORTHOTOPIC N/A 04/12/2020 Laterality: N/A; Surgeon: LU Palma; Location: [facility] SAME DAY SURGERY MAIN OR KIDNEY TRANSPLANT W/O MARSHALL NEPHRECTOMY N/A 04/12/2020 Laterality: N/A; Surgeon: LU Palma; Location: [facility] SAME DAY SURGERY MAIN OR [...] s/p combined Liver-kidney transplant on 04/13/20. His wilton kidney disease was noted to be presumed [...] Urinary histoplasmosis - PJP, candid PCR - Personnel Arbitrator transplant ID Acute Kidney Injury with Kidney [...] CAD: non-obstructive CAD on [facility] 2018. - continue aspirin 81mg daily, [...] Pierson, Luisa Steven, Renee Rivera, Daisha Max Training And Development Professional: José Miguel Garnica All Txt: 04/13/2020 (Kidney), [...] results found for: CYCLOSPORIN , CYCLOSPORIN2 , [id number] , CYCLORAND No results found for: SIROLIMUS [...] Rest as above. Kevin Prince MD Pager [phone] documented in this encounter [facility] 08-28-2023 History of Present illness Narrative Images from the original note were not included. 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 Training And Development Professional: Anayeli Burt Date of Liver Transplant: 04/13/2020 (Kidney), 04/13/2020 (Liver) 3 years 4 months post Liver/Kidney Transplant Primary Disease: Hypertensive Nephrosclerosis Transplant Senior Engineering Team Leader: Erma Roe/ Daisha Max Primary Care physician: [...] and faMOTIdine === None Specified Preferred Lab: [facility] Change in lab frequency / new order [...] every 12 hours. ADDITIONAL INFORMATION: None Specified, [id number] [place] [address] - [address] [facility] [address] [facility] [address] [facility] [address] [id number] [place] [address] [address] [facility] [address] [facility] [address] [facility]ob [address], [place] [address] [facility] [address] ROS and SCREEN: Chest Pain: negative Cough: [...] I saw George Styles at the [facility] on 08/28/2023. Patient is a 53 y.o. 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 Steve Munoz MD roofer applicator Division of Nephrology [facility] documented in this encounter [facility] 08-28-2023 Instructions Mainor Busby RN - 08/28/2023 2:15 PM EDT - Admission for fevers, cough, and night sweats documented in this encounter [facility] 08-19-2023 History of Present illness Narrative [facility]: Call Information: Date and Time of Contact: 08/19/2023 2:52 PM Method of Contact: By Phone Contact Type: Prescriptions Contactor: [facility] Contactee: Patient Shipping/Pickup: Medicare B Refill?: No Medication Name: Tacro 0.5mg Delivery Method: Air Delivery Location: Home Signature Required: No Mailing/Pickup Date: 08/25/2023 Shipping Address: [address] [place] [address] Contact Info: Specialty ([place]) [phone] [facility] [phone] [facility] [phone] David [phone] Bedside Delivery ([facility]) [phone] documented in this encounter [facility] 06-12-2023 History of Present illness Narrative Images from the original note were not included. George Styles is a 53 y.o. 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 No longer follows with a local lip and gate builder. History of Present Illness: Since George was [...] and lab results. Rebeca Gutierrez MSN, RN, PRODUCTION RECORDER-BC, CCTN Certified Nurse Practitioner Comprehensive Transplant Center [facility] [address] [facility] [address] documented in this encounter [facility] 06-12-2023 Instructions JEANNA Hess - 06/12/2023 3:00 PM EDT No change in immunosuppression. documented in this encounter [facility] 06-10-2023 History of Present illness Narrative [facility]: Call Information: Method of Contact: By Phone Contact Type: Prescriptions Contactor: [facility] OP Contactee: Patient Contact Outcome: Left message Shipping/Pickup: Medication Name: Mycophenolate sod 180 mg Contact Info: Specialty ([place]) [phone] Jakob [phone] [facility] [phone] David [phone] Bedside Delivery ([facility]) [phone] [facility]RE[facility]: Call Information: Date and Time of Contact: 06/12/2023 9:43 AM Method of Contact: By Phone Contact Type: Prescriptions Contactor: [facility] OP Contactee: Patient Contact Outcome: Left message and Follow-up Shipping/Pickup: Medicare B Refill?: No Medication Name: Myco 180 Contact Info: Specialty ([place]) [phone] Jakob [phone] [facility] [phone] David [phone] Bedside Delivery ([facility]) [phone] [facility]REACH [facility]: Call Information: Date and Time of Contact: 06/12/2023 10:08 AM Method of Contact: By Phone Contact Type: Prescriptions Contactor: [facility] Contactee: Patient Shipping/Pickup: Medicare B Refill?: No Medication Name: Mycophenolate 180mg DR Delivery Method: Air Delivery Location: Home Signature Required: No Mailing/Pickup Date: 06/17/2023 Shipping Address: [address] [place] [address] Contact Info: Specialty ([place]) [phone] [facility] [phone] [facility] [phone] David [phone] Bedside Delivery ([facility]) [phone] documented in this encounter [facility] 04-13-2023 Note [place] [facility] - [facility] Subjective George Styles is a 53 y.o. [...] Legacy Encounter on (more content not included)... [facility] 03-12-2023 History of Present illness Narrative [facility]: Call Information: Date and Time of Contact: 03/12/2023 10:34 AM Method of Contact: By Phone Contact Type: Prescriptions Contactor: [facility] Contactee: Patient Shipping/Pickup: Medicare B Refill?: No Medication Name: Mycophenoloate sod 360 mg prednisone 5mg Delivery Method: Air Delivery Location: Home Signature Required: No Mailing/Pickup Date: 03/16/2023 Shipping Address: [address] [place] [address] Contact Info: Specialty ([place]) [phone] Jakob [phone] [facility] [phone] [facility] [phone] Bedside Delivery ([facility]) [phone] [facility]REACH [facility]: Call Information: [...] No Mailing/Pickup Date: 03/19/2023 Shipping Address: [address] [facility] [address] Contact Info: Specialty ([place]) [phone] [facility] [phone] [facility] [phone] David [phone] Bedside Delivery ([facility]) [phone] documented in this encounter [facility] 03-10-2023 History of Present illness Narrative [facility]RE[facility]: Call Information: Date and Time of Contact: 03/10/2023 12:00 PM Method of Contact: By Phone Contact Type: Prescriptions Contactor: [facility] Contactee: Patient Contact Outcome: Left message and Call back later Shipping/Pickup: Medication Name: Mycophenolate ; Tacrolimus Contact Info: Specialty ([place]) [phone] [facility] [phone] [facility] [phone] David [phone] Bedside Delivery ([facility]) [phone] documented in this encounter [facility] 03-10-2023 History of Present illness Narrative [facility] RX OUTREACH ADVANCED: Call Information: Date and Time of Contact: 03/10/2023 12:00 PM Method of Contact: By Phone Contact Type: Prescriptions Contactor: [facility] Contactee: Patient Contact Outcome: Left message and Call back later Shipping/Pickup: Medication Name: Mycophenolate ; Tacrolimus Contact Info: Specialty ([place]) [phone] [facility] [phone] [facility] [phone] David [phone] Bedside Delivery ([facility]) [phone] [facility] RX OUTREACH ADVANCED: Call Information: Date and Time of Contact: 03/12/2023 10:32 AM Method of Contact: By Phone Contact Type: Prescriptions Contactor: [facility] Contactee: Patient Contact Outcome: Left message Shipping/Pickup: Medication Name: Mycophenolate sodium (MYFORTIC) 180 MG Tab tacrolimus 0.5 mg Contact Info: Specialty ([place]) [phone] Jakob [phone] [place] [phone] David [phone] Bedside Delivery ([facility]) [phone] documented in this encounter [facility] 01-16-2023 History of Present illness Narrative -Referring Provider for today's consult: Daisha Max DO -Primary Care Provider: Zuly Bruno History of Present Illness George Styles is a 52 y.o. male who presents to the [facility] Transplant Hepatology Clinic today for [...] GUIDANCE 05/17/2022 Surgeon: Enzo Heart DO; Location: [facility] INTERVENTIONAL RADIOLOGY (VIR) LIVER TRANSPLANT, ORTHOTOPIC N/A 04/12/2020 Laterality: N/A; Surgeon: LU Palma; Location: [facility] SAME DAY SURGERY MAIN OR KIDNEY TRANSPLANT W/O MARSHALL NEPHRECTOMY N/A 04/12/2020 Laterality: N/A; Surgeon: LU Palma; Location: [facility] SAME DAY SURGERY MAIN OR [...] 0.3 12/29/2022 Explant Pathology Pathologic Diagnosis A. [place] liver, orthotopic liver transplant resection (1458 gram): [...] A/P with IV contrast (06/27/2022): 1. Both wilton kidneys are atrophic with improvement in right-sided [...] frequent nighttime urination, etc). Daisha Max DO Import Dispatcher Gastroenterology, Hepatology and Nutrition [facility] Pager: [phone] Images from the original note were not included. 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 Training And Development Professional: Anayeli Burt Date of Liver Transplant: 04/13/2020 (Kidney), 04/13/2020 (Liver) 2 years, 8 months post Liver/Kidney Transplant Primary Disease: Hypertensive Nephrosclerosis Transplant Senior Engineering Team Leader: Steve Munoz Primary Care physician: Zuly Bruno [...] levels: No results found for: CYCLOSPORIN, CYCLOSPORIN2, [id number], CYCLORAND No components found for: CYCLOSPORINE, 2HR [...] hours. ADDITIONAL INFORMATION: None Specified [id number] [place] [address] - [address] [facility] [address] [facility] [id number] [facility] [address], [address] [place] [address] [id number] - [place] [id number] - [address] [facility] [address] [place] [address] [facility] Jakob [address], [address] [place] [address] ROS and SCREEN: Chest Pain: negative Cough: [...] ADDRESS WITH PHYSICIAN: documented in this encounter [facility] 01-16-2023 Instructions José Miguel Garnica RN - 01/16/2023 9:40 AM EST - Labs Every 2 months - Discuss night time urination with your PCP - Schedule Colonoscopy through PCP - Follow up in 1 year documented in this encounter [facility] 09-10-2022 History of Present illness Narrative [...] and no hydronephrosis. Some reflux up the wilton right ureter but good drainage of both transplant and wilton ureter to the bladder. Nephrostomy tube was [...] transplant, orthotopic (N/A, 04/12/2020); kidney transplant w/o wilton nephrectomy (N/A, 04/12/2020); and placement nephrostomy catheter [...] Negative for , diarrhea, constipation Genitourinary: See [place] Neurological: Negative for headaches. Lymph/Heme: Negative for [...] x 4, Normal strength. No edema. Skin: Chancellor, warm, and dry. There are no rashes [...] and no hydronephrosis. Some reflux up the wilton right ureter but good drainage of both transplant and wilton ureter to the bladder. Nephrostomy tube was [...] MD 09/10/22 documented in this encounter [facility] 07-07-2022 History of Present illness Narrative Patient [...] assisted off the table and escorted to wet chemistry analyst where they made a follow up. Associated [...] to have transplant ureter with anastomosis to wilton right ureter. Nephrostogram without filling defects and no hydronephrosis. Some reflux up the wilton right ureter but good drainage of both transplant and wilton ureter to the bladder. Nephrostomy tube was removed without issue. Patient does have some sensation of incomplete bladder emptying and occasional sensation in his right flank. PVR today was 33cc. Will re-evaluate urinary symptoms at next appointment. --continue Flomax --RTC in one month flow flow/PVR/IPSS Patient to call with any additional questions or concerns. Ryan Yepez MD 07/07/22 documented in this encounter [facility] 06-27-2022 History of Present illness Narrative UROLOGY [...] transplant, orthotopic (N/A, 04/12/2020); kidney transplant w/o wilton nephrectomy (N/A, 04/12/2020); and placement nephrostomy catheter [...] Negative for , diarrhea, constipation Genitourinary: See [place] Neurological: Negative for headaches. Lymph/Heme: Negative for [...] x 4, Normal strength. No edema. Skin: Chancellor, warm, and dry. There are no rashes [...] yo male with a DDRT to the [facility] in 2019. Nephrostomy tube placed 05/17 [...] bag if needed. documented in this encounter [facility] 06-27-2022 History and physical note Patient was evaluated in clinic as a nurse visit. Please refer to Rena Brewster's note. [facility] Work Phone: 06-27-2022 History and physical note Patient was evaluated in clinic as a nurse visit. Please refer to Rena Brewster's note. documented in this encounter [facility] 06-27-2022 History of Present illness Narrative TEACHING REGARDING TX NEPH COMPLETED-NEPH TUBE SITE DRY AND INTACT-CLEAR YELLOW URINE IN THE BAG-INSTRUCTED ABOUT FLUSHING, BAG CHANGING ETC. NUMEROUS QUESTIONS ASKED AND ANSWERED-VERBALIZED UNDERSTANDING documented in this encounter [facility] 06-18-2022 Note EXAMINATION: CT ABD/ PELVIS [...] mass or enlargement. KIDNEYS: Marked atrophy of wilton kidneys. Transplant right pelvic kidney with percutaneous [...] authenticated by: MÓNICA JIMENEZ Date: 2022-06-18 13:53 [facility] 06-12-2022 Instructions Anayeli Christianson RN - 06/12/2022 3:21 PM EDT Do not take apart/disrupt nephrostomy tube system. Call Interventional Radiology and/or on-call transplant nurse [phone] for instruction if need to flush (clot or decreased flow). Take cipro 500mg, one tablet, twice per day for 14 days documented in this encounter [facility] 06-12-2022 History of Present illness Narrative Images from the original note were not included. 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 Training And Development Professional: Anayeli Burt Date of Liver Transplant: 04/13/2020 (Kidney), 04/13/2020 (Liver) 2 year, 1 months post Liver/Kidney Transplant Primary Disease: Hypertensive Nephrosclerosis Transplant Senior Engineering Team Leader: Steve Munoz Primary Care physician: Zuly Bruno [...] Non-obstructing kidney stone in renal graft at [facility]. Percutaneous Neph Tube placed Images from the original note were not included. Nursing Assessment In Clinic (see Clinic Prep Sheet for additional information) Patient is accompanied to clinic today by: self Did patient require a wheelchair or medical transport for appointment: no Did senior front end engineer confirm current address and insurance information is [...] PREFERRED LAB AND PHARMACY: None Specified [facility] [place] [id number] - [address] [address] [facility] [address] [facility] [address] [id number] [place] [address] [address] [facility] [address] [facility] [address] [facility] Jakob [address], [place] [address] [facility] [address] ROS and SCREEN: Chest Pain: negative Cough: negative SOB: negative Abd Pain: negative Nausea: positive Vomiting: negative Diarrhea: negative Constipation: negative Dysuria: positive Edema: negative Tremors: negative Headaches: negative Wound issues: negative Pt has neph tube w clear yellow urine. States he had a small clot that he dislodged QUESTIONS OR CONCERNS TO ADDRESS WITH PHYSICIAN: I saw George Styles at the [facility] on 06/12/2022. Patient is a 52 y.o. 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 Steve Munoz MD roofer applicator Division of Nephrology [facility] documented in this encounter [facility] 06-04-2022 Instructions TATI GROVE - 06/04/2022 11:04 AM EDT Thank you for joining us for your neph tube follow up. We recommend routine exchange every 8-10 weeks. Please reach out at [phone] when it is time to set your next routine exchange. Thank you IR clinic documented in this encounter [facility] 06-04-2022 History of Present illness Narrative [...] exchange. Verbalized understanding. documented in this encounter [facility] 05-20-2022 Note Formatting of this n [...] time of his discharge. Leon Cook RN [facility] 05-20-2022 Miscellaneous Notes Patient discharged. AVS [...] provide teaching before his discharge Leon RN #[id number] Leon Cook RN Afternoon assessment completed at [...] Interdisciplinary Rounds/Family Conf Outcome: Ongoing Discussed with [facility] re: possible urine culture performed at their [...] orders in place. At 1530, I text paged Kaitlynn Gomez MD that patient has only [...] with questions. Evan Byrd MD Urology, PGY-2 #[id number] I certify that this patient requires inpatient [...] Kallie Lorenzana RN documented in this encounter [facility] 05-20-2022 Note Formatting of this n [...] discharge/transition of care. Outcome: Adequate for Discharge [facility] 05-20-2022 Note Formatting of this n ote might be different from the original. Anne Dillard MD R10 Rm 1006 Jensen George Please let's have a clear order on how the nephrostomy site dressing need to be changed when the patient goes home so we provide teaching before his discharge Leon RN #[id number] Leon Cook RN [facility] 05-20-2022 History of Present illness Narrative Images from the original note were not included. [facility] ([facility]) Note: [facility] received the following discharge prescription(s): Medication reconciliation was completed with comparison to discharge reconciliation report. The prescription(s) will be delivered to the patient's bedside on 05/20/22. Total cost is $0. Yanira Her RPh,PharmD Specialty ([place]) [phone] [facility] [phone] [facility] [phone] David [phone] [place] [phone] Bedside Delivery ([facility]) [phone] Attending I saw George Styles at the [facility] on 05/19/2022. I saw and independently [...] Daily Progress Note Patient: George Styles, 1970, [id number] Physician: Liam Julian MD, PGY-3, Pager #[phone], [email or web address] Subjective/Interval History: No acute events overnight. Passed [...] MD (Peggy) Division of Hospital Medicine Pager [phone] Attending I saw George Styles at the [facility] on 05/18/2022. I saw and independently [...] Evan Bennett MD 0.4 mg at 05/17/22 0985 Lab Results Component Value Date SODIUM 139 [...] Daily Progress Note Patient: George Styles, 1970, [id number] Physician: Nishant Gamez MD, PGY2, Pager #[phone], [id number] Subjective/Interval History: Nephrostomy tube placed yesterday with a lot of urine output and significant improvement in creatinine. 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 Daya (Nunu) Jeff Saldana MD Division of Hospital Medicine Pager [phone] Internal Medicine Daily Progress Note Patient: George Styles, 1970, [id number] Physician: Nishant Gamez MD, PGY2, Pager #[phone], [email or web address] Subjective/Interval History: Worsening creatinine this morning with [...] MD (Peggy) Division of Hospital Medicine Pager [phone] Attending I saw George Styles at the [facility] on 05/17/2022. I saw and independently [...] of chart and discussion with treatment team, Administrative Professional has not identified needs at this [...] follow. Introduced self and role of the edm operator to patient. Provided emotional and spiritual support and the patient responded by sharing their experience and discussed the following: - Spirituality/Cheondoism Affiliation: As a kid attended [employer] but not a strong identity now - Family support - pt's brothers live close by Systems Requirements Planner provided: - Supportive presence - Active listening - Validation of feelings/emotions Patient encouraged to request a edm operator as needed. Chaplains are available in-house 24 hours a day and 7 days a week. For urgent matters in [facility], please page [phone]. If the request is not urgent, please enter a consult. Consults are responded to within 24 hours. Angie Singh Mdiv, [facility] Burn Unit and Transplant [place] [address] Systems Requirements Planner [facility] Systems Requirements Planner [place] [phone] [email or web address] 22/06 [facility] Pager [phone] 22/06 Pager ,[facility], and Brock 1500 22/06 David Pager [phone] 05/16/22 1122 Clinical Encounter Type Visited With Patient Visit Type Introduction Pastoral Time Spent 15 min Referral Other (See Comment) (Rounding) Spiritual Assessment Spiritual Observation Spirituality helpful;Identifies as (see comment) (Anabaptist) Emotional Observation Coping well Hope Observation Hopeful and accepting Support Observation By Family Interventions Provided Active listening;Supportive presence Facilitated Verbalization of feelings;Sharing of life story;Identifying support system Explored Expectations Applied Behavior Science Specialist Education Applied Behavior Science Specialist Service Available Yes Educated Patient Outcomes Patient Outcomes Articulated purpose/meaning Plan of Care Continue Visiting PRN Internal Medicine Daily Progress Note Patient: George Stylse, 1970, [id number] Physician: Nishant Gamez MD, PGY2, Pager #[phone], [email or web address] Subjective/Interval History: Overall feeling okay this morning. 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 [...] Supervision Transfer Assessment: Sit to Stand Transfer [place] Level: Sit->Stand: independent Skilled Intervention/Details: Sit->Stand: x1 from EOB Stand to Sit Transfer [place] Level: Stand->Sit: supervision Assistive Device: Stand->Sit: armed chair Skilled Rationale: Controlled descent for sitting, Verbal cues Gait/Functional Mobility: Gait Assessment [place] Level: Gait: supervision Assistive Device: Gait: gait belt Gait Distance (feet): 200 Gait Deviations Identified: decreased grace, decreased step length, decreased stride length Gait Skilled Rationale: verbal, upright posture Skilled Intervention/Details - Gait: Pt with steady gait without LOB or complaints of SOB. Stairs: Stairs Assessment [place] Level: Stair Negotiation: stand-by assist Assistive Device: Stair Negotiation: gait belt, left rail (ascending) Number of stairs: 9 Stairs Skilled Rationale: reciprocal pattern Outcome Score(s): CURRENT [facility] Basic Mobility Inpatient Short Form Turning over in bed: 4 - No Assistance Sitting/standing from chair: 4 - No Assistance Moving from lying on back to sittin - No Assistance Moving to and from bed to chair: 4 - No Assistance Walk in hospital room: 3 - A Little Assistance Climbing 3-5 steps with a railin - A Little Assistance CURRENT [facility] Mobility Raw Score: 22 CURRENT [facility] Mobility Functional Limitation/Modifier: 20.91% Currently [...] reported no concerns with discharging home with rawlings support. 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 IADL History IADLs: independent Primary Language: Hong Konger Home Management Skills: independent Meal Prep Responsibility: [...] Assessment: Transfer Assessment: Sit to Stand Transfer [place] Level: Sit->Stand: independent Skilled Rationale: Cues for increased safety Skilled Intervention/Details: Sit->Stand: x1 EOB Stand to Sit Transfer [place] Level: Stand->Sit: supervision Assistive Device: Stand->Sit: gait belt, armed chair Skilled Rationale: Verbal cues, Controlled descent for sitting, Cues for increased safety Skilled Intervention/Details: Stand->Sit: cues for hand placement and controlled descent Functional Mobility: Functional Mobility [place] Level: Functional Mobility/Gait: stand-by assist Assistive Device: Functional Mobility/Gait: gait belt Functional Mobility Distance: Distance needed for limited community mobility Functional Mobility Deficits: Activity tolerance, Balance, Decreased step length, Generalized weakness Functional Mobility Skilled Rationale: Verbal cues, Facilitate postural control Skilled Intervention/Details - Functional Mobility/Gait: cues for upright posture Outcome Score(s): CURRENT [facility] Daily Activity Inpatient Short Form Putting on/Taking Off Lower Body Clothin - A Little Assistance Bathin - A Little Assistance Toiletin - A Little Assistance Putting on/Taking Off Upper Body Clothin - No Assistance Groomin - No Assistance Eatin - No Assistance CURRENT [facility] Activity Raw Score: 21 CURRENT [facility] Activity Functional Limitation/Modifier: 32.79% Currently [...] DAY SURGERY MAIN OR KIDNEY TRANSPLANT W/O MARSHALL NEPHRECTOMY N/A 04/12/2020 Laterality: N/A; Surgeon: LU [...] by: Mel Norman OT, OTR/L License #: [id number] pager # [phone] 05/20/2022 Upon discontinuation of Acute Care Occupational Therapy Services or patient discharge from the hospital this note represents the current Occupational Therapy Discharge Summary. documented in this encounter [facility] 05-20-2022 Hospital course Narrative Discharge Summary Name: [...] during his recent hospital stay at [facility]. As you may know, George Styles, [...] Saldana MD Division of Hospital Medicine p: [phone] f: [phone] CONSULTS DURING ADMISSION: IP CONSULT TO SURGERY - UROLOGY IP CONSULT TO NEPHROLOGY - TRANSPLANT (MEDICINE) IP CONSULT TO INTERVENTIONAL RADIOLOGY IP CONSULT TO PHYSICAL THERAPY IP CONSULT TO OCCUPATIONAL THERAPY IP CONSULT TO PHARMACY BEDSIDE DISCHARGE MED DELIVERY IMAGING / PROCEDURES / RESULTS: Should you require further information or copies of results or reports please contact Medical Information Management @ [phone] LABS AT TIME OF DISCHARGE: Lab Results [...] AT DISCHARGE: Zuly Bruno [address] [facility] [place] [address] MEDICATIONS: Discharge Orders CT ABDOMEN/PELVIS WITHOUT CONTRAST [...] CAPS Generic drug: docusate Follow-up: Zuly Bruno, POT FLUXER [address] [place] [phone] Schedule an appointment as soon as possible for a visit Follow-up appointment with your, primary care physician within 7-10 days, after discharge. [address] [facility] [phone] Follow up The department of urology will call you with a follow up appointment. LU Ovalle [address] 11th Floor [facility] [address] Follow up Please make a follow up appointment with Dr. Munoz's office. Upcoming Appointments (up to five)-Some appointments for Medical Center outpatient clinics or diagnostic testing locations are not displayed below Provider Department Dept Phone 06/04/2022 10:40 AM IR CLINIC [facility] Interventional Radiology Clinic [phone] 06/27/2022 1:30 PM [facility] Department of Radiology Arrive at: Arrive to First Floor Registration Desk [phone] 06/27/2022 2:40 PM Ryan Yepez [facility] Arrive at: Arrive to 2nd Floor, Registration [id number] 10/31/2022 1:00 PM Steve Munoz [facility] Transplant [facility] [phone] 01/16/2023 9:40 AM TRANSPLANT HEPATOLOGY 3, [facility] Transplant [facility] [phone] Associated attestation - Daya Saldana MD - [...] MD (Peggy) Division of Hospital Medicine Pager [phone] documented in this encounter [facility] 05-20-2022 Hospital Discharge instructions Giulia Cavazos RN [...] be changed by Interventional Radiology. Please call [phone] to schedule this appointment and with any questions or concerns you may have regarding the nephrostomy tube. If you have questions or concerns, please call Interventional Radiology at SOMEONE FROM INTERVENTIONAL RADIOLOGY WILL CALL YOU FOR A FOLLOW UP IN THE IR CLINIC Giulia Cavazos RN Nurse Coordinator Interventional Radiology Interventional Radiology Outpatient scheduling documented in this encounter [facility] 05-19-2022 Note Formatting of this n ote [...] Goal: Interdisciplinary Rounds/Family Conf Outcome: Ongoing [facility] 05-19-2022 Note Formatting of this n ote might be different from the original. Discussed with [facility] re: possible urine culture performed at their facility. However, based on urinalysis completed at that time, which was only notable for hematuria, culture was not performed and sample no longer feasible for culture. Liam Julian MD Internal Medicine/Pediatrics, PGY-3 [facility] 05-18-2022 Note Formatting of this n ote might be different from the original. 2002: IHIS message sent to Dr Justyn Wen, regarding patient passing a small kidney stone, about the size of pea. notified. Stone left in strainer in pt bathroom. 0500: IHIS message sent to Dr Justyn Wen, regarding pt BP 174/77. [facility] 05-18-2022 Note Formatting of this n [...] outcomes by discharge/transition of care. Outcome: Ongoing [facility] 05-18-2022 Note Formatting of this n [...] becomes hyponatremic, NS should instead be used. [facility] Work Phone: 05-18-2022 Note Formatting of this n ote might be different from the original. IHIS chat sent to Dr Tray Quintana, regarding pt BP 190/86. Pt complaining of pain at site of neph tube. PRN pain medication given per order parameters. Pt denies any other symptoms at this time. MD notified and aware. [facility] 05-17-2022 Note Formatting of this n ote might be different from the original. At 0900, I rounded with Dr. Gamez and Dr. Saldana. At that time I checked Mr. Styles's vital signs. His pulse oximeter was low and he was tachypneic. Verbal order at bedside to put nasal cannula on starting at 2liters oxygen and to provide incentive spirometer. [facility] 05-17-2022 Note Formatting of this n ote might be different from the original. Interventional Radiology procedure completed with IR Attending Dr. Heart / Dr. Le of percutaneous right nephrostomy tube placement transplant kidney 10.2 Fr Griffin acosta Pt tolerated procedure with moderate sedation local numbing agent . Transported to inpatient after phase I recovery. Post procedure orders in place. [facility] 05-16-2022 Note Formatting of this n ote might be different from the original. At 1530, I text chavad Kaitlynn Gomez MD that patient has only had 25ml urine output in matias this afternoon. [facility] 05-16-2022 Note Formatting of this [...] with questions. Evan Byrd MD Urology, PGY-2 #[id number] [facility] Work Phone: 05-16-2022 Note Formatting of this n ote might be different from the original. I certify that this patient requires inpatient services at this time. I anticipate the expected length of stay will include at least two midnights. Inpatient services are due to the following medical concerns Obstructive kidney stone. Plans for post hospitalization care will be discharge to home. [facility] 05-16-2022 Consult note Associated Order (s): IP CONSULT TO NEPHROLOGY - TRANSPLANT (MEDICINE) I saw George Styles at the [facility] on 05/16/2022. Reason for Consultation: kidney [...] he was given flomax and sent home. Gasquet better but noticed more pain and decreased [...] best assessment and recommendations. Maxi Pringle MD [facility] Work Phone: 05-16-2022 Consult note Associated Order (s): IP CONSULT TO NEPHROLOGY - TRANSPLANT (MEDICINE) I saw George Styles at the [facility] on 05/16/2022. Reason for Consultation: kidney [...] he was given flomax and sent home. Gasquet better but noticed more pain and decreased [...] states he went to his local ED [place] and he was put on Flomax and he did improve. Pt states last night he was unable to void with severe right sided abd pain. Pt states nausea and no vomiting or fevers. Pt states he went back to [place] ED at 0100 and they placed a [...] orthotopic (N/A, 04/12/2020); and kidney transplant w/o wilton nephrectomy (N/A, 04/12/2020). 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 The wilton kidneys are progressively atrophic bilaterally compared to [...] of 06/14/2020 are no longer present. The wilton distal right ureter is decompressed beyond this [...] with surgical history for renal graft and wilton right urinary drainage, as a discrete ureteroneocystostomy is not identified, and the graft may be draining via a ureteroureterostomy. Urology consultation recommended. 3. The wilton kidneys are bilaterally atrophic, with right renal sinus calcifications consistent with nonobstructing right wilton renal calculi up to 6 mm. Normal [...] PGY-3, Department of Urologic Surgery Pager #: [phone] Associated attestation - Ryan Yepez MD - [...] placement of a nephrostomy would be warranted. Matisa catheter flushed this morning and matias patent. Plan: --due to rising Cr would recommend consultation to IR for nephrostomy tube placement. Request antegrade ureteropyelogram to assess for obstruction and evaluate the course of the ureter --if antegrade ureteropyelogram still indeterminate may need repeat imaging in the future before surgical intervention --may continue flomax documented in this encounter [facility] 05-16-2022 Note Formatting of this n ote [...] Trust Relationship/Rapport: care explained choices provided [facility] 05-16-2022 Note Formatting of this n ote might be different from the original. On admission to R10, a dual RN initial assessment of skin condition was performed by Kallie Lorenzana RN and Sheri Arguelles RN. Skin Assessment: WDL Jose Score: 20 LDA Added:N Kallie Lorenzana RN [facility] 05-15-2022 Emergency department Note Report given to Kallie RN at [facility] 05-15-2022 Emergency department Note Report given to Kallie RN at [facility] Bladder scan with Dr Villatoro at bedside, 14ml noted Advised Dr Schneider concerning no urine output via matias catheter. ED Attending George Feliz Jensen has a past medical history of Acute renal failure, CAD (coronary artery disease), Cirrhosis, Dialysis patient, End stage renal disease (06/01/2018), Essential hypertension, benign, Hepatic encephalopathy, History of blood transfusion, and Liver cirrhosis. Presents with a chief complaint of kidney stone and diagnosed Thursday and was sent home with [facility]. He went back to that ED [...] 04/12/2020 Laterality: N/A; Surgeon: LU Palma; Location: [facility] SAME DAY SURGERY MAIN OR KIDNEY TRANSPLANT W/O MARSHALL NEPHRECTOMY N/A 04/12/2020 Laterality: N/A; Surgeon: LU Palma; Location: [facility] SAME DAY SURGERY MAIN OR [...] Schneider MD Resident 05/15/222030 Pt arrives from [facility] with kidney stones. Pt states he had right lower abd pain and right flank pain with blood in his urine since Thursday. Pt states he went to his local ED [place] and he was put on Flomax and he did improve. Pt states last night he was unable to void with severe right sided abd pain. Pt states nausea and no vomiting or fevers. Pt states he went back to [place] ED at 0100 and they placed a matias and CT scan completed and multiple kidney stones noted. Pt [facility] ED as he had liver and kidney transplant in 03/2020. documented in this encounter [facility] 05-15-2022 History and physical note Internal Medicine Admission History & Physical Patient: George Styles, 1970, [id number] Physician: Evan Bennett MD, PGY1, Pager #[phone], GM 4 service Date of face to [...] (coronary artery disease) Cirrhosis Dialysis patient T, - Started 06/01/2018 End stage renal disease 06/01/2018 Essential hypertension, benign Hepatic encephalopathy History of blood transfusion Liver cirrhosis Past Surgical History: Procedure Laterality Date LIVER TRANSPLANT, ORTHOTOPIC N/A 04/12/2020 Laterality: N/A; Surgeon: LU Palma; Location: [facility] SAME DAY SURGERY MAIN OR KIDNEY TRANSPLANT W/O MARSHALL NEPHRECTOMY N/A 04/12/2020 Laterality: N/A; Surgeon: LU [...] mycophenolate sodium (MYFORTIC) [address] Recinos: Take 2 tablets by mouth every 12 [...] erythema: Skin: No jaundice or rash Neuro: 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 [...] dilation of the calyces may represent narrowing/partial [id number] ofthe ureter and mild hydronephrosis or sequela [...] Evan Bennett MD Associated attestation - Fred Pirnce MD - 05/16/2022 3:59 AM EDT I [...] MD Division of Hospital Medicine [id number] [facility] Work Phone: 05-15-2022 History and physical note Internal Medicine Admission History & Physical Patient: George Styles, 1970, [id number] Physician: Evan Bennett MD, PGY1, Pager #[phone], GM 4 service Date of face to [...] DAY SURGERY MAIN OR KIDNEY TRANSPLANT W/O MARSHALL NEPHRECTOMY N/A 04/12/2020 Laterality: N/A; Surgeon: LU [...] erythema: Skin: No jaundice or rash Neuro: 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 [...] dilation of the calyces may represent narrowing/partial [id number] ofthe ureter and mild hydronephrosis or sequela [...] Medicine [id number] documented in this encounter [facility] 05-15-2022 Emergency department Note Bladder scan with Dr Villatoro at bedside, 14ml noted [facility] 05-15-2022 Consult note Associated Order (s): IP [...] states he went to his local ED [place] and he was put on Flomax and he did improve. Pt states last night he was unable to void with severe right sided abd pain. Pt states nausea and no vomiting or fevers. Pt states he went back to [place] ED at 0100 and they placed a [...] orthotopic (N/A, 04/12/2020); and kidney transplant w/o wilton nephrectomy (N/A, 04/12/2020). 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 The wilton kidneys are progressively atrophic bilaterally compared to [...] of 06/14/2020 are no longer present. The wilton distal right ureter is decompressed beyond this [...] with surgical history for renal graft and wilton right urinary drainage, as a discrete ureteroneocystostomy is not identified, and the graft may be draining via a ureteroureterostomy. Urology consultation recommended. 3. The wilton kidneys are bilaterally atrophic, with right renal sinus calcifications consistent with nonobstructing right wilton renal calculi up to 6 mm. Normal [...] Plan -No acute Urologic intervention -Agree with mtaias catheter for bladder decompression: recommend bladder US [...] PGY-3, Department of Urologic Surgery Pager #: [phone] Associated attestation - Ryan Yepez MD - [...] future before surgical intervention --may continue flomax [facility] Work Phone: 05-15-2022 Emergency department Note Advised Dr Schneider concerning no urine output via matias catheter. [facility] 05-15-2022 Physician Emergency department Note ED Attending [...] plan of care. Gian Villatoro MD 05/15/222003 [facility] Work Phone: 05-15-[address] Schneider made aware of only 30 ml urine via matias since arrival to room. [facility] 05-15-2022 Physician Emergency department Note dEPARTMENT [...] DAY SURGERY MAIN OR KIDNEY TRANSPLANT W/O MARSHALL NEPHRECTOMY N/A 04/12/2020 Laterality: N/A; Surgeon: LU [...] incorrections. Matt Schneider MD Resident 05/15/222030 [facility] Work Phone: 05-15-2022 Emergency department Note Pt arrives from [facility] with kidney stones. Pt states he had right lower abd pain and right flank pain with blood in his urine since Thursday. Pt states he went to his local ED [place] and he was put on Flomax and he did improve. Pt states last night he was unable to void with severe right sided abd pain. Pt states nausea and no vomiting or fevers. Pt states he went back to [place] ED at 0100 and they placed a matias and CT scan completed and multiple kidney stones noted. Pt sent to [facility] ED as he had liver and kidney transplant in 03/2020. [facility] 03-14-2022 History of Present illness Narrative [...] Required: No Mailing/Pickup Date: 03/17/2022 Shipping Address: [address] [place] [address] 179 Contact Info: Specialty ([place]) [phone] [facility] [phone] [facility] [phone] David [phone] Bedside Delivery ([facility]) [phone] documented in this encounter [facility] 06-14-2021 History of Present illness Narrative [...] Goal Progress: Satisfactory Contact Info: Specialty ([place]) [phone] Jakob [phone] [facility] [phone] David [phone] Bedside Delivery ([facility]) [phone] [facility]: Call Information: Date [...] Location: Home Signature Required: Yes Shipping Address: [address] [place] [address] Contact Info: Specialty ([place]) [phone] Jakob [phone] [facility] [phone] David [phone] Bedside Delivery ([facility]) [phone] documented in this encounter [facility] Evaluation note Diagnosis FAYE (acute kidney injury)- Primary Acute kidney failure, unspecified Hydronephrosis due to obstruction of ureteral orifice Hydronephrosis due to obstruction of ureteral orifice FAYE (acute kidney injury) Acute kidney failure, unspecified [facility] Diagnosis Follow-up exam- Primary Unspecified follow-up examination [facility] Diagnosis Immunosuppressed status- Primary Unspecified disorder of immune mechanism Kidney replaced by transplant Liver replaced by transplant Abnormal blood chemistry Other abnormal blood chemistry High risk medication use Encounter for long-term (current) use of other medications Aftercare following organ transplant [facility] Attention to nephrostomy- Primary [facility] Diagnosis Other hydronephrosis- Primary [facility] Diagnosis FAYE (acute kidney injury) Acute kidney failure, unspecified [facility] Diagnosis Other hydronephrosis- Primary -donor kidney transplant recipient Kidney replaced by transplant [facility] Other hydronephrosis [facility] Diagnosis 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) Encounter for screening for malignant neoplasm of prostate Special screening for malignant neoplasm of prostate [facility] Diagnosis Abnormal blood chemistry- Primary Other abnormal blood chemistry Liver transplant recipient Kidney replaced by transplant Immunosuppressed status Unspecified disorder of immune mechanism Aftercare following organ transplant [facility] Diagnosis Kidney replaced by transplant- Primary [facility] Diagnosis Immunosuppressed status- Primary Unspecified disorder of immune mechanism Kidney replaced by transplant Aftercare following organ transplant High risk medication use Encounter for long-term (current) use of other medications Other general symptoms and signs Abnormal blood chemistry Other abnormal blood chemistry Hypertension secondary to other renal disorders [facility] Diagnosis Histoplasmosis- Primary Histoplasmosis, unspecified [...] Fever, unspecified [facility] Diagnosis Bilateral lower extremity edema- Primary [...] pre-operative examination [facility] Diagnosis Heart failure, diastolic, acute- Primary Acute diastolic heart failure [facility] Consultation (Routine) - New Request Specialty Diagnoses / Procedures Referred By Deni edwards Referred To Contact Interventional Radiology Diagnoses Hydronephrosis due to obstruction of ureteral orifice Daya Saldana MD [address] [place] [address] Referral ID Status Reason Start Date Expiration Date V isits Requested Visits Authorized [id number] New Request 05/18/2022 06/12/2023 1 1 * Radiology (Emergency) - New Request Specialty Diagnoses / Procedures Referred By Deni edwards Referred To Contact Procedures US RENAL TRANSPLANT SCAN Daya Saldana MD [address] [place] [address] Referral ID Status Reason Start Date Expiration Date V isits Requested Visits Authorized [id number] New Request 05/16/2022 06/10/2023 1 1 * Consultation (Routine) - New Request Specialty Diagnoses / Procedures Referred By Contac t Referred To Contact Urology Diagnoses FAYE (acute kidney injury) Ryan Yepez MD [address] [place] [address] [address] [place] [address] Referral ID Status Reason Start Date Expiration Date V isits Requested Visits Authorized [id number] New Request 05/16/2022 06/10/2023 1 1 * MRI/CAT Scan (Routine) - New Request Specialty Diagnoses / Procedures Referred By Contac t Referred To Contact Diagnoses FAYE (acute kidney injury) Procedures CT ABDOMEN/PELVIS WITHOUT CONTRAST CHG CT SCAN,ABDOMENT AND PELVIS,W/O CONTRAST Ryan Yepez MD [address] [place] [address] [address] [place] [address] Referral ID Status Reason Start Date Expiration Date V isits Requested Visits Authorized [id number] New Request 05/16/2022 06/10/2023 1 1 * (Routine) - Pending Review Specialty Diagnoses / Procedures Referred By Contac t Referred To Contact Procedures PLATELET MONITORING PER PROTOCOL Daya Saldana MD [address] [place] [address] Referral ID Status Reason Start Date Expiration Date V isits Requested Visits Authorized [id number] Pending Review 05/15/2022 06/09/2023 1 1 * (Routine) - Pending Review Specialty Diagnoses / Procedures Referred By Contac t Referred To Contact Procedures DVT/VTE RISK ASSESSMENT Daya Saldana MD [address] [place] [address] Referral ID Status Reason Start Date Expiration Date V isits Requested Visits Authorized [id number] Pending Review 05/15/2022 06/09/2023 1 1 * (Routine) Specialty Diagnoses / Procedures Referred By Contac t Referred To Contact Evan Bennett MD [address] [place] [address] Referral ID Status Reason Start Date Expiration Date Visits Re quested Visits Authorized * (Routine) Specialty Diagnoses / Procedures Referred By Contac t Referred To Contact Evan Bennett MD [address] [place] [address] Referral ID Status Reason Start Date Expiration Date Visits Re quested Visits Authorized [facility] for referral (narrative)* Consultation (Routine) - New Request Specialty Diagnoses / Procedures Referred By Contac t Referred To Contact Sleep Medicine Diagnoses Hypoxia Kevin Prince MD [address] [place] [address] Referral ID Status Reason Start Date Expiration Date V isits Requested Visits Authorized [id number] New Request 09/10/2023 10/04/2024 1 1 * MRI/CAT Scan (Routine) - New Request Specialty Diagnoses / Procedures Referred By Contac t Referred To Contact Diagnoses Histoplasmosis Procedures CT CHEST WITHOUT CONTRAST CHG DIAGNOSTIC COMPUTED TOMOGRAPHY THORAX W/O Kevin Zarate MD [address] [place] [address] Referral ID Status Reason Start Date Expiration Date V isits Requested Visits Authorized [id number] New Request 09/10/2023 10/04/2024 1 1 * Radiology (Routine) - New Request Specialty Diagnoses / Procedures Referred By Contac t Referred To Contact Procedures US RENAL TRANSPLANT SCAN Steve Munoz MBBS [address] [place] [address] Referral ID Status Reason Start Date Expiration Date V isits Requested Visits Authorized [id number] New Request 08/29/2023 09/22/2024 1 1 * (Routine) - New Request Specialty Diagnoses / Procedures Referred By Contac t Referred To Contact Procedures PLATELET MONITORING PER PROTOCOL Steve Munoz MBBS [address] [place] [address] Referral ID Status Reason Start Date Expiration Date V isits Requested Visits Authorized [id number] New Request 08/28/2023 09/21/2024 1 1 * (Routine) - New Request Specialty Diagnoses / Procedures Referred By Contac t Referred To Contact Procedures DVT/VTE RISK ASSESSMENT Steve Munoz MBBS [address] [place] [address] Referral ID Status Reason Start Date Expiration Date V isits Requested Visits Authorized [id number] New Request 08/28/2023 09/21/2024 1 1 [facility] Instructions * Patient Instructions - Christin Elizabeth APRN-ROB - 10/19/2018 9:21 AM EST You should take an extra dose of the lactulose as needed so that you are having 3-4 bowel movementsdaily. You should start the chemical dependency counseling as soon as possible. If you have questions, call the transplant social service worker Fidelina Pierson. in this encounter* Patient Instructions - Sophie Cary RN - 10/12/2018 11:09 AM EST You have been seen in the pre-transplant evaluation clinic by Dr. Restrepo and Sophie Cary. Sophie Cary is your pre-cancer registry coordinator she can be reached at [phone] at any time for questions during the pre-transplant process. Your evaluation is complete pendin. Abdominal ultrasound. 2. 6 minute walk test. 3. Cardiology evaluation. Additionally, your [id number] programmer will recommend testing to screen for coronary artery disease. This will be scheduled for you after your cardiology visit. 4. Your coordinator will be requesting record from your last dental visit, colonoscopy and EGD. 5. Please work to complete social work recommendations. Your social service worker will be contacting you to follow up on your progress. 6. You have also been referred for a kidney transplant. An appointment will be scheduled for you sari evaluated in the kidney transplant clinic after you have satisfied requirements dictated by [employer] company. Once your testing is complete, we [...] ___ Other Name MRN * Christin Elizabeth, PRODUCTION RECORDER-POT [employer]ER - 10/19/2018 9:00 AM EST Formatting of this note may be different from the original. History of Present Illness: Chief Complaint Patient presents with Follow-up Cirrhosis George Styles is a 48 y.o. male who presents to the [facility] today regarding his diagnosis/chief complaint(s) of Cirrhosis secondary to ETOH, with ESRD follows with Dr. Orr. Currently undergoing evaluation for liver/kidney transplant. Has been seen in transplant clinic for eval. Still undergoing pre testing. Diagnosed in April 2018. Last drink was immediately prior to hospital admission in [place] for ACLF. Hospital course notable for ARF [...] (human immunodeficiency virus infection); Hyperlipidemia; Hyperthyroidism; Hypothyroidism; NJ (myocardial infarction); Migraine; DARLENE (obstructive sleep apnea); [...] kidney transplant evaluation. Pt was AOx3. Transplant Reptile Keeper role/function was explained and reviewed. The patient was informed that the results of this assessment will be shared with the referring provider and the transplant team. The patient verbalized understanding of this information. The [facility] psychosocial assessment consent form has been explained to patient and has been signed. Pt is completing this evaluation with brother (David) in the Outpatient setting. ALIE educated pt on the benefits of completing/filing advanced directives and resources were offered. Pt identifies with RASTAFARIAN hindu. Pt confirms being a [place] Citizen. Pt.'s primary language is [place]. Pt confirms the ability to read,write, and understand [place]. Pt denies potential donors. Donor cards and [...] has valid license, does not regularly drive (POT FLUXER recommends that he not to drive). He [...] disease etoh cirrohosis April dx in [facility] [facility] for [facility] days. Pt reports learning [...] as well as referred him to pre cancer registry coordinator. Pt and support demonstrated moderate understanding [...] Patient's brother David is a self employed plumbing assembler. Additional support includes his other brother Tyshawn and his Mary live fifteen minutes away. Of note Mary is a placement manager for a [employer] is available to assist apartment community assistant manager. He confirms being comfortable asking for [...] in 2010, he was employed by the [employer]. He has access to SSDI payment (SSDI [...] ordered treatment after a DUI charge Formerly [facility] in [place], court ordered treatment in 2001 and in [...] by patient from his primary medical provider- POT FLUXER patient was noted as attending an alcohol [...] new visit Date of service: 10/12/2018 -Referring telemarketing sales representative for today's consult: -Primary Care Provider: Zuly Bruno CC: Chief Complaint Patient presents with Liver Recipient Evaluation History of Present Illness George Styles is a 48 y.o. male who presents to the [facility] liver transplant surgery clinic today [...] EST Timed up and go 9.9 seconds Imaging Services Director Left 52.8 pounds Right 44.9 pounds Waist circ 38.5 inches * Sophie Cary, SAMI - 10/12/2018 10:00 AM EST Formatting of this note may be different from the original. Patient George Styles ([id number]), accompanied by his brother, was seen on [...] any further questions. Sophie GUERINN, RN Liver Training And Development Professional Etiology: ETOH HCC: No ETOH: Yes Last [...] Yovani Orr MD [address] [address] Status Reason Specialty Diagnoses / Procedures Referred By Contact Referred To Contact New Request Diagnoses Cirrhosis of liver with ascites, unspecified hepatic cirrhosis type Procedures US ABDOMEN RUQ/LIVER/GB Yovani Orr MD [address] [address] Specialty Diagnoses / Procedures Referred By Contac t Referred To Contact Diagnoses FAYE (acute kidney injury) Procedures CT ABDOMEN/PELVIS WITHOUT CONTRAST CHG CT SCAN,ABDOMENT AND PELVIS,W/O CONTRAST Central Scheduling [place] [address] Referral ID Status Reason Start Date Expiration Date V isits Requested Visits Authorized [id number] Pending Review 05/16/2022 06/10/2023 1 1 Specialty Diagnoses / Procedures Referred By Contac t Referred To Contact Diagnoses Other hydronephrosis Procedures FLUORO IMAGING FOR UROLOGY Ryan Yepez MD [address] [facility] [address] [place] [address] Referral ID Status Reason Start Date Expiration Date V isits Requested Visits Authorized [id number] New Request 07/07/2022 08/01/2023 1 1 Specialty Diagnoses / Procedures Referred By Contac t Referred To Contact Procedures DIRECT ADMIT REQUEST Steve Munoz MBBS [address] [place] [address] Referral ID Status Reason Start Date Expiration Date V isits Requested Visits Authorized [id number] New Request 08/28/2023 09/21/2024 1 1 Specialty Diagnoses / Procedures Referred By Contac t Referred To Contact Radiology Diagnoses DARLENE (obstructive sleep apnea) Primary hypertension (CMS/HCC) Bilateral lower extremity edema Shortness of breath Procedures Echocardiogram 2D complete Zuly Bruno NP [address] [place] [address] Referral ID Status Reason Start Date Expiration Date Visits Requested Visits Authorized [id number] Incomplete Perform Procedure 01/06/2024 07/04/2024 1 1 Specialty Diagnoses / Procedures Referred By Contac t Referred To Contact Procedures US IMAGING REGIONAL ANESTHESIA Kehinde Gutierrez MD [address] [place] [address] Referral ID Status Reason Start Date Expiration Date V isits Requested Visits Authorized [id number] New Request 01/22/2024 02/15/2025 1 1 Specialty Diagnoses / Procedures Referred By Contac t Referred To Contact Cardiovascular Medicine Diagnoses Heart failure, diastolic, acute Kelvin Pacheco MD, JOSHBS [address] 1[address] [place] [address] Referral ID Status Reason Start Date Expiration Date V isits Requested Visits Authorized [id number] New Request 01/20/2024 02/13/2025 1 1 Specialty Diagnoses / Procedures Referred By Contac t Referred To Contact Procedures US ABDOMEN LIVER DOPPLER US ABDOMEN LIVER TRANSPLANT DOPPLER Timothy Joseph MD [address] [facility] [address] [place] [address] Referral ID Status Reason Start Date Expiration Date V isits Requested Visits Authorized [id number] New Request 01/16/2024 02/09/2025 1 1 Specialty Diagnoses / Procedures Referred By Contac t Referred To Contact Procedures DVT/VTE RISK ASSESSMENT Kelvin Pacheco MD, MBBS [address] [place] [address] Referral ID Status Reason Start Date Expiration Date V isits Requested Visits Authorized [id number] New Request 01/16/2024 02/09/2025 1 1 Specialty Diagnoses / Procedures Referred By Contac t Referred To Contact Procedures PLATELET MONITORING PER PROTOCOL Kelvin Pacheco MD, MBBS [address] [place] [address] Referral ID Status Reason Start Date Expiration Date V isits Requested Visits Authorized [id number] New Request 01/16/2024 02/09/2025 1 1 Referral ID Status Reason Start Date Expiration Date V isits Requested Visits Authorized [id number] New Request 01/16/2024 02/09/2025 1 1 Specialty Diagnoses / Procedures Referred By Contac t Referred To Contact Procedures ECG Kelvin aPcheco MD, MBBS [address] [place] [address] Referral ID Status Reason Start Date Expiration Date V isits Requested Visits Authorized [id number] New Request 01/16/2024 02/09/2025 1 1 Advance Directives No Advanced Directives Records FoundDocuments on File Type Date Recorded Patient Clinic Manager Expl anation Advance Directives and Living Will Power of Reservations Specialist Latest Code Status on File Code [...] Yovani Orr MD [address] [address] Status Reason Specialty Diagnoses / Procedures Referre d By Contact Referred To Contact Denied Diagnoses Alcoholic cirrhosis, unspecified whether ascites present Pre-transplant evaluation for liver transplant Procedures MRI ABDOMEN WITH CONTRAST OR MRI, ABDOMEN W/CONTRAST Yovani Orr MD [address] [address] Reason Comments Liver Recipient Evaluation Status Reason Specialty Diagnoses / Procedures Referred By Contact Referred To Contact New Request Transplant / Transplant Surgery Procedures PRE NEW PATIENT Yovani Orr MD [address] [place] [address] Alfredtio Restrepo MD [address] [place] [address] Reason Comments Reschedule Reason Comments Outside Medical Records Request Reason Comments Social Work Follow-up Reason Comments Kidney Stone Specialty Diagnoses / Procedures Referred By Deni edwards Referred To Contact Diagnoses Obstructing kidney stone, s/p kidney transplant 2019 Daya Saldana MD [address] [place] [address] [facility] [address] [place] [address] Referral ID Status Reason Start Date Expiration Date Visits Re quested Visits Authorized [id number] 1 1 Reason Comments Follow-up Reason Comments Kidney Recipient Follow-up Liver Recipient Follow-up Reason Comments Consult Reason Comments New Patient Hospital follow up Specialty Diagnoses / Procedures Referred By Deni edwards Referred To Contact Urology Diagnoses hosp fu with [address] prior Procedures NEW TO DOC/RET PATIENT Zuly Bruno, POT FLUXER [address] [place] [address] Ryan Yepez MD [address] [facility] [address] [place] [address] Referral ID Status Reason Start Date Expiration Date Visits Re quested Visits Authorized [id number] Closed 06/27/2022 07/22/2023 1 1 Specialty Diagnoses / Procedures Referred By Deni t Referred To Contact Diagnoses FAYE (acute kidney injury) Procedures CT ABDOMEN/PELVIS WITHOUT CONTRAST CHG CT SCAN,ABDOMENT AND PELVIS,W/O CONTRAST Central Scheduling [address] [place] [address] Referral ID Status Reason Start Date Expiration Date V isits Requested Visits Authorized [id number] Pending Review 05/16/2022 06/10/2023 1 1 Reason Comments Follow-up Specialty Diagnoses / Procedures Referred By Contac t Referred To Contact Urology Diagnoses 1 week fu post NT clamp Procedures RETURN PATIENT Zuly Bruno, POT FLUXER [address] [place] [address] Ryan Yepez MD [address] [place] [address] [address] [place] [id number] Referral ID Status Reason Start Date Expiration Date Visits Requested Visits Authorized [id number] Authorized - 07/07/2022 08/01/2023 2 2 Specialty Diagnoses / Procedures Referred By Contac t Referred To Contact Diagnoses Other hydronephrosis Procedures FLUORO IMAGING FOR UROLOGY Ryan Yepez MD [address] [place] [address] [address] [place] [id number] Referral ID Status Reason Start Date Expiration Date V isits Requested Visits Authorized [id number] New Request 07/07/2022 08/01/2023 1 1 Specialty Diagnoses / Procedures Referred By Contac t Referred To Contact Urology Diagnoses 1 week fu post NT clamp Procedures RETURN PATIENT Zuly Bruno, ROB [address] [place] [address] Ryan Yepez MD [address] [place] [address] [address] [place] [address] Referral ID Status Reason Start Date Expiration Date Visits Re quested Visits Authorized [id number] Closed 07/07/2022 08/01/2023 2 2 Reason Comments Liver Recipient Follow-up Reason Comments Kidney Recipient Follow-up Reason Comments Kidney Recipient Follow-up Specialty Diagnoses / Procedures Referred By Contac t Referred To Contact Diagnoses Kidney replaced by transplant Steve Munoz, LU [address] [place] [address] [facility] [address] [place] [address] Referral ID Status Reason Start Date Expiration Date Visits Re quested Visits Authorized [id number] 1 1 Specialty Diagnoses / Procedures Referred By Contac t Referred To Contact Diagnoses Pleural effusion on right PNEUMONIA- HX LIVER AND KIDNEY TRANSPLANT Kevin Prince MD [address] [place] [address] [facility] [address] [place] [address] Referral ID Status Reason Start Date Expiration Date Visits Re quested Visits Authorized [id number] 1 1 Reason Comments New Patient Specialty Diagnoses / Procedures Referred By Contac t Referred To Contact Cardiovascular Medicine Diagnoses Heart failure, diastolic, acute Kelvin Pacheco MD, MBBS [address] [place] [address] Referral ID Status Reason Start Date Expiration Date Visits Requested Visits Authorized [id number] Authorized - 01/20/2024 02/13/2025 5 5 (unrecognized sect ion and content) No Status Records FoundNo Status Records FoundNo Status Records FoundNo Status Records FoundNo Status Records FoundNo Status Records Found INFORMATION SOURCE (unrecogn ized section and content) DATE CREATED AUTHOR 01/07/2020 [facility] DATE CREATED AUTHOR AUTHOR'S ORGANIZ ATION 01/27/2021 [facility] DATE CREATED AUTHOR AUTHOR'S ORGANIZ ATION 04/13/2023 [facility] DATE CREATED AUTHOR AUTHOR'S ORGANIZ ATION 05/11/2023 [facility] DATE CREATED AUTHOR AUTHOR'S ORGANIZ ATION 03/25/2024 [facility] EPIC DATE CREATED AUTHOR AUTHOR'S ORGANIZ ATION 03/26/2024 [facility] Care Teams (unrecognized sec tion and content) Can Maker Relationship Specialty Start Date End Date Zuly Bruno, POT FLUXER PCP - General 07/19/18 MiguelComfort, [facility] [address] [place] [address] Pharmacist Pharmacist 05/16/20 Angel Carpio [facility],PharmD Pharmacist Pharmacist 05/16/20 Te Leigh [facility],PharmD Pharmacist Pharmacist 01/09/21 Can Maker Relationship Specialty Start Date End Date Zuly Bruno CNP PCP - General 07/19/18 Miguel Comfort C, [facility] [address] [place] [address] Pharmacist Pharmacist 05/16/20 Angel Carpio [facility],PharmD Pharmacist Pharmacist 05/16/20 Te Leigh [facility],PharmD Pharmacist Pharmacist 01/09/21 Can Maker Relationship Specialty Start Date End Date Zuly Bruno CNP PCP - General 07/19/18 Can Maker Relationship Specialty Start Date End Date Zuly Bruno CNP PCP - General 07/19/18 Can Maker Relationship Specialty Start Date End Date Zuly Bruno CNP PCP - General 07/19/18 Can Maker Relationship Specialty Start Date End Date Zuly Bruno CNP PCP - General 07/19/18 Can Maker Relationship Specialty Start Date End Date Zuly Bruno CNP PCP - General 07/19/18 Can Maker Relationship Specialty Start Date End Date Zuly Bruno CNP PCP - General 07/19/18 Can Maker Relationship Specialty Start Date End Date Zuly Bruno CNP PCP - General 07/19/18 Can Maker Relationship Specialty Start Date End Date Zuly Bruno CNP PCP - General 07/19/18 Can Maker Relationship Specialty Start Date End Date FloreslatishaZuly tipton CNP PCP - General 07/19/18 Can Maker Relationship Specialty Start Date End Date Zuly Bruno CNP PCP - General 07/19/18 Can Maker Relationship Specialty Start Date End Date FloreslatishaZuly tipton CNP PCP - General 07/19/18 Can Maker Relationship Specialty Start Date End Date Kristopherlydiajose eZuly CNP PCP - General 07/19/18 Can Maker Relationship Specialty Start Date End Date Kristopherlydiajose e Zuly, ROB PCP - General 07/19/18 Can Maker Relationship Specialty Start Date End Date KristopherlydiaAnnie dorantestray ROB PCP - General 07/19/18 Can Maker Relationship Specialty Start Date End Date Kristopherlydiajose e Zuly, ROB PCP - General 07/19/18 Evan White DO [address] [place] [address] Infectious Disease Infectious Disease 09/09/23 Can Maker Relationship Specialty Start Date End Date Zuly Bruno CNP PCP - General 07/19/18 Evan White DO [address] [place], [place] [id number] Infectious Disease Infectious Disease 09/09/23 Can Maker Relationship Specialty Start Date End Date Zuly Bruno CNP PCP - General 07/19/18 Evan White DO [address] [place], [place] [phone] Infectious Disease Infectious Disease 09/09/23 Can Maker Relationship Specialty Start Date End Date Momo Verdugo MD PCP - General Family Medicine 05/21/23 Can Maker Relationship Specialty Start Date End Date Momo Verdugo MD PCP - General Family Medicine 05/21/23 Can Maker Relationship Specialty Start Date End Date Momo Verdugo MD PCP - General Family Medicine 05/21/23 Can Maker Relationship Specialty Start Date End Date Zuly Bruno CNP PCP - General 07/19/18 Evan White DO [address] [place], [place] [id number] Infectious Disease Infectious Disease 09/09/23 Can Maker Relationship Specialty Start Date End Date Zuly Bruno CNP PCP - General 07/19/18 Evan White DO [address] [place] [address] Infectious Disease Infectious Disease 09/09/23 Can Maker Relationship Specialty Start Date End Date Zuly Bruno CNP PCP - General 07/19/18 Evan White DO [address] [place] [address] Infectious Disease Infectious Disease 09/09/23 Can Maker Relationship Specialty Start Date End Date Zuly Bruno CNP PCP - General 07/19/18 Evan White DO [address] [place] [address] Infectious Disease Infectious Disease 09/09/23 Can Maker Relationship Specialty Start Date End Date Zuly Bruno CNP PCP - General 07/19/18 Evan White DO [address] [place] [address] Infectious Disease Infectious Disease 09/09/23 Scheduled Active and Recently Administ ered Medications (unrecognized section and content) Medication Order 05/18/2022 05/19/2022 05/20/2022 allopurinol (ZYLOPRIM) tablet 100 mg 100 mg, Oral, DAILY, First dose (after last modification) on Thu05/17/22 at 0900, Until Discontinued 08 (Given - Provider: Mel Hampton RN) 08 (Given - Provider: Josey Braun RN) 09 (Given - Provider: Leon Cook RN) amLODIPine [...] Josey Braun, SAMI)1754 (Given - Provider: Josey Braun RN)2058 (Given - Provider: Carolyn Isaac RN) 0742 (Given - Provider: Leon Cook, RN)1502 (Given - Provider: Leon Cook, RN) losartan (COZAAR) tablet 50 mg 50 [...] Braun RN)2058 (Given - Provider: Carolyn Isaac, SAMI) 0742 [...] Isaac RN)1925 (Rate/Dose Verify - Provider: Carolyn Isaac, SAMI) 2058 (Stopped - Provider: Carolyn Isaac RN) [...] NEEDED, Starting on 05/17/22 at 1101, Until e 05/20/22 at 2110, CT Procedure melatonin tablet 3 [...] Leon Cook RN)1337 (Stopped - Provider: Leon Coko RN) Linked Groups Order Group 1: ondansetron [...] 752 (Given - Provider: Aixa Holden RN) 0829 [...] 752 (Given - Provider: Aixa Holden RN) 0829 (Given - Provider: Terra Heart RN) 0957 (Given - Provider: Cheyanne Mcdonough RN) Atorvastatin (LIPITOR) tablet 20 mg 20 mg, Oral, DAILY AT BEDTIME, First dose on Thu08/28/23 at 2100, Until Discontinued 2100 (Hold - Provider: Girish Nunez RN - [...] Girish Nunez RN)1609 (Given - Provider: Aixa Holden, RN) 0617 (Given - Provider: Girish Nunez RN)1805 (Given - Provider: Terra [facility], SAMI) 0610 (Given - Provider: Carolyn Plasencia, SAMI) [...] Nunez RN) 0829 (Given - Provider: [facility], SAMI)2024 [...] at 0900, Until Discontinued, On hold since [facility] 01/21/2024 at 0802 until manually unheld 08 (Held by provider - Provider: Arelis Mera [...] Ahmadi RN) 0842 (Given - Provider: Terra Heart, SAMI)1053 (JAN Hold - Provider: Automatic Transfer - Reason: Transfer to a Procedural area)141 (JAN Unhold - Provider: Automatic Transfer)2008 (Given - Provider: Tati Ahmadi RN) 0923 (Given - Provider: [facility], SAMI) Magnesium sulfate 4 g in sterile [...] Ahmadi RN) 0920 (Given - Provider: Terra Heart, SAMI) Sulfamethoxazole-trime thoprim (BACTRIM DS) 800-160 MG per tablet 1 tablet 1 tablet, Oral, THREE TIMES WEEKLY (Once per day on Thursday), First dose on Thu01/18/24 at 0900, Until Discontinued 0846 (Given - Provider: Terra Heart, SAMI)1053 (JAN Hold - Provider: Automatic Transfer - Reason: Transfer to a Procedural area)1414 (MAR Unhold - Provider: Automatic Transfer) tacrolimus (PROGRAF) susp 0.2 mg 0.2 mg, Oral, CUSTOM FREQUENCY (Once per day on Thursday), First dose on 01/16/24 at 0900, Until Discontinued, Caution check route of administration. For sublingual administration, place liquid under tongue and allow absorption. 0842 (Given - Provider: Erica Gudino RN) 1053 (BANNER Hold - Provider: Automatic Transfer - Reason: Transfer to a Procedural area)1414 (BANNER Unhold - Provider: Automatic Transfer) 0923 (Given - Provider: Terra Heart RN) Tamsulosin HCl (FLOMAX) capsule 0.4 mg 0.4 mg, Oral, DAILY, First dose on 01/16/24 at 0900, Until Discontinued, Slow release product. Do not chew or crush 0842 (Given - Provider: Erica Gudino RN) 0841 (Given - Provider: Terra Heart RN)1053 (BANNER Hold - Provider: Automatic Transfer - Reason: Transfer to a Procedural area)1414 (BANNER Unhold - Provider: Automatic Transfer) 0920 (Given [...] (Given - Provider: Terra Heart RN)1053 (BANNER Hold - Provider: Automatic Transfer - Reason: Transfer to a Procedural area)1414 (BANNER Unhold - Provider: Automatic Transfer) 0920 (Given [...] all sources in 24 hours. 1053 (BANNER Hold - Provider: Automatic Transfer - Reason: Transfer to a Procedural area)1414 (BANNER Unhold - Provider: Automatic Transfer)1806 (Given - Provider: [facility]ra [facility], SAMI)2353 (Given - Provider: Tati Ahmadi, SAMI) alum/mag hydrox.-simethicone oral suspension 30 mL 30 mL, Oral, EVERY 6 HOURS NEEDED, Starting on 01/16/24 at 0202, Until 01/23/24 at 1752, Indigestion, Per 5 mL is equivalent to: (Alum-Mag Hydroxide 200-225 mg and Simethicone 20 mg) and (Alum-Mag Hydroxide 200-200 mg and Simethicone 20 mg) 1053 (BANNER Hold - Provider: Automatic Transfer - Reason: Transfer to a Procedural area)1414 (BANNER Unhold - Provider: Automatic Transfer) guaiFENesin (ROBITUSSIN) oral solution 400 mg 400 mg, Oral, EVERY 6 HOURS NEEDED, Starting on 01/16/24 at 0202, Until 01/23/24 at 1752, Cough, Congestion 1053 (BANNER Hold - Provider: Automatic Transfer - Reason: Transfer to a Procedural area)141 (BANNER Unhold - Provider: Automatic Transfer) HYDROmorphone (DILAUDID) injection 0.2 mg (CANCELED) 0.2 mg, Intravenous, EVERY 3 HOURS NEEDED, Starting on Thu01/22/24 at 1323, Until 01/23/24 at 0821, Severe Pain 210 (Given - Provider: Tati Ahmadi RN) Lidocaine (XYLOCAINE) 10 mg/mL injection (CANCELED) NEEDED, Starting on Thu01/22/24 at 1248, Until Thu01/22/24 at 1306, Intra-op/Intra-Proc 1248 (Given - Provider: Jyoti Bryant MD, PhD) Melatonin tablet 6 mg 6 mg, Oral, DAILY AT BEDTIME NEEDED, Starting on 01/19/24 at 0016, Until 01/23/24 at 1752, Insomnia 1053 (BANNER Hold - Provider: Automatic Transfer - Reason: Transfer to a Procedural area)1414 (BANNER Unhold - Provider: Automatic Transfer)2355 (Given - [...] Tati Ahmadi RN)1415 (Given - Provider: [facility], SAMI) Ondansetron [...] Terra Heart, SAMI)1312 (Given - Provider: [facility]ra [facility] RN) Polyethylene [...] of 5mg/min. Maximum of 40mg/day. 1053 (BANNER Hold - Provider: Automatic Transfer - Reason: Transfer to a Procedural area)1414 (BANNER Unhold - Provider: Automatic Transfer)2349 (Given - [...] intermittent or piggy back medication. 1053 (BANNER Hold - Provider: Automatic Transfer - Reason: Transfer to a Procedural area)1414 (BANNER Unhold - Provider: Automatic Transfer) No Frequency [...] BE BASED ON THE PRIMARY CLINICAL RECORDS. [facility]. provides no warranty or guarantee of the accuracy or completeness of information in this document.
[2024-03-28 07:08] LABS: Basophils Percent Auto 0.6 % (0.2-2.0); Eosinophils Absolute Auto 0.1 10^3/uL (0.0-0.7); Eosinophils Percent Auto 2.5 % (0.9-7.0); Hematocrit 44.6 % (42.0-54.0); Hemoglobin 14.5 g/dL (14.0-18.0); Immature Granulocytes Abs Auto 0.01 10^3/uL (0.00-0.03); Immature Granulocytes Pct Auto 0.2 % (0.0-0.5); Lymphocytes Absolute Auto 1.8 10^3/uL (1.2-3.8); Lymphocytes Percent Auto 34.8 % (20.5-60.0); Mean Corpuscular HGB Conc 32.5 g/dL (29.9-35.2); Mean Corpuscular Hemoglobin 29.2 pg (25.9-34.0); Mean Corpuscular Volume 89.9 fL (80.0-94.0); Mean Platelet Volume 10.1 fL (9.5-13.5); Monocytes Absolute Auto 0.5 10^3/uL (0.3-0.8); Monocytes Percent Auto 9.4 % (1.7-12.0); Neutrophils Absolute Auto 2.7 10^3/uL (1.4-6.5); Neutrophils Percent Auto 52.5 % (43.0-75.0); Platelet Count 215 10^3/uL (150-450); Red Blood Count 4.96 10^6/uL (4.70-6.10); Red Cell Distribution Width 14.7 % (11.0-15.0); White Blood Count 5.1 10^3/uL (4.0-11.0)
[2024-03-28 07:15] LABS: Protein Creatinine Ratio Urine 0.18; Total Protein Urine Random 23.4 mg/dL (<=11.9)
[2024-03-28 07:18] LABS: Alanine Aminotransferase 27 U/L (16-63); Albumin Level 3.9 g/dL (3.4-5.0); Alkaline Phosphatase 151 U/L (46-116); Anion Gap 14.3; Aspartate Amino Transferase 24 U/L (15-37); BUN Creatinine Ratio 19.2; Bilirubin Direct 0.2 mg/dL (0.0-0.2); Bilirubin Total 1.1 mg/dL (0.2-1.0); Calcium 9.7 mg/dL (8.5-10.1); Carbon Dioxide 25.9 mmol/L (21.0-32.0); Chloride 105 mmol/L (98-107); Estimated GFR (African America >60 (>=60); Estimated GFR (Non-African Ame >60 (>=60); Gamma Glutamyl Transpeptidase 26 U/L (15-85); Glucose 107 mg/dL (74-106); Magnesium 2.3 mg/dL (1.8-2.4); Phosphorus 3.2 mg/dL (2.6-4.7); Potassium 4.2 mmol/L (3.5-5.1); Sodium 141 mmol/L (136-145)
[2024-03-30 13:08] LABS: Tacrolimus (FK506), Blood 3.4 ng/mL (2.0-20.0)
== END 2024-03-28 06:38 | disposition home or self-care (01) ==
PROVIDERS: PCP Nurse Practitioner
DX: R79.9 Abnormal finding of blood chemistry, unspecified (principal); Z94.0 Kidney transplant status; Z94.4 Liver transplant status; Z48.298 Encounter for aftercare following other organ transplant
CPT/HCPCS: 36415; 80048; 80197; 82042; 82247; 82248; 82570; 82977; 83735; 84075; 84100; 84156; 84450; 84460; 85025

== ENCOUNTER 2024-04-04 06:43 | Outpatient (OUT) | payer MEDICARE, MEDICAID, SELFPAY ==
--- OUTSIDE RECORDS SUMMARY | 2024-04-04 06:50 | XMS_ITS | CCD ---
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 Unavailable [phone] Shirin [facility],PharmD, Angel Unavailable Unavailab makayla Leigh [facility],PharmD, Te Unavailable Unavai lable Aicholz [facility], [facility] Primary Care Provider [phone] MIGUEL CARDONA Attending Unavailable MISC, DR BURCH Admitting Unavailable MISC, DR BURCH Consulting Unavailable AICHHOLZ, TURNTABLE MAN UZLY Primary Care Unavailable MISC, DR BURCH Attending Unavailable MISC, DR BURCH Admitting Unavailable MISC, DR BURCH Consulting Unavailable AICHHOLZ, TURNTABLE MAN ZULY Primary Care Unavailable MISC, DR BURCH Attending Unavailable ARCELIA PIZARRO Consulting Unavailable KE BURNHAM Attending Unavailable KE BURNHAM Admitting Unavailable BARBARA, DR MÓNICA Munoz Consulting Unavailable AICHHOLZ, TURNTABLE MAN ZULY Primary Care Unavailable KE BURNHAM Consulting Unavailable MISC, DR BURCH Consulting Unavailable MISC, DR BURCH Attending Unavailable AICHHOLZ, TURNTABLE MAN ZULY Primary Care Unavailable MISC, DR BURCH Admitting Unavailable MISC, DR DOCTOR Consulting Unavailable MISC, DR DOCTOR Attending Unavailable AICHHOLZ, TURNTABLE MAN ZULY Primary Care Unavailable MISC, DOCTOR Admitting Unavailable MISC, DR DOCTOR Consulting Unavailable AICHHOLZ, TURNTABLE MAN ZULY Primary Care Unavailable MISC, DR DOCTOR Admitting Unavailable MISC, DR DOCTOR Attending Unavailable MELINDA, DR GEORGE Munoz Consulting Unavailable MELINDA, DR GEORGE Munoz Attending Unavailable AICHHOLZ, TURNTABLE MAN ZULY Primary Care Unavailable MELINDA, DR GEORGE Munoz Admitting Unavailable NAUN ., KE Consulting Unavailable MIRANDA, LYNDSAY Consulting Unavailable MELINDA, DR GEORGE Munoz Consulting Unavailable NAUN ., KE Attending Unavailable NAUN ., KE Admitting Unavailable AICHHOLZ, TURNTABLE MAN ZULY Primary Care Unavailable NAUN ., KE Consulting Unavailable GIAN HERRING Consulting Unavailable AICHHOLZ, TURNTABLE MAN ZULY Consulting Unavailable AICHHOLZ, TURNTABLE MAN ZULY Attending Unavailable AICHHOLZ, TURNTABLE MAN ZULY Admitting Unavailable AICHHOLZ, TURNTABLE MAN ZULY Primary Care Unavailable MISC, DR DOCTOR Consulting Unavailable MISC, DOCTOR Admitting Unavailable MISC, DR DOCTOR Attending Unavailable AICHHOLZ, TURNTABLE MAN ZULY Primary Care Unavailable MISC, DR DOCTOR Consulting Unavailable MISC, DR DOCTOR Attending Unavailable MISC, DR DOCTOR Admitting Unavailable AICHHOLZ, TURNTABLE MAN ZULY Primary Care Unavailable MISC, DOCTOR Admitting Unavailable MISC, DR DOCTOR Consulting Unavailable MISC, DR DOCTOR Attending Unavailable AICHHOLZ, TURNTABLE MAN ZULY Primary Care Unavailable MISC, DR DOCTOR Admitting Unavailable MISC, DR DOCTOR Consulting Unavailable AICHHOLZ, TURNTABLE MAN ZULY Primary Care Unavailable MISC, DR DOCTOR Attending Unavailable MISC, DR DOCTOR Admitting Unavailable MISC, DR DOCTOR Consulting Unavailable AICHHOLZ, TURNTABLE MAN ZULY Primary Care Unavailable MISC, DR DOCTOR Attending Unavailable AICHHOLZ, TURNTABLE MAN ZULY Consulting Unavailable AICHHOLZ, TURNTABLE MAN ZULY Attending Unavailable AICHHOLZ, TURNTABLE MAN ZULY Admitting Unavailable AICHHOLZ, TURNTABLE MAN ZULY Primary Care Unavailable DR MÓNICA JIMENEZ Consulting Unavailable Aichholz [facility], Zuly Primary Care Provider Tran White DOs Tray Unavailable Aichholz [facility], Zuly Primary Care Provider Tran White DOs A Unavailable [phone] Momo Verdugo MD Primary Care Provider AICHHOLZ, [...] ZULY Referring Unavailable AICHHOLZ, ZULY Attending Unavailable Aichholz TURNTABLE MAN, Zuly Primary Care Provider [phone] AICHHOLZ, ZULY Primary Care Unavailable HAKEEM ALAMO [...] Unavailabl e AICHHOLZ, ZULY Primary Care Unavailable NIKI, KEVIN [...] to adverse reactions (disorder) 8 [facility] Repository (20 sources) Shellfish-Derive d Products Propensity to adverse reactions to drug 9 [facility] (1 source) Shellfish Drug allergy (disorder) [facility] Repository Medications Current Medications Medication [...] Start: 12-30-2021 take 2 tablets by mo [facility] once daily allopurinol 100 MG tablet Indications: Abnormal blood chemistry take 2 tablets by mouth once daily 180 tablet 3 12/30/2021 Active Start: 01-28-2021 take 2 tablets by mo ut once [...] 1 capsule by mouth once daily b tbrmbfs-R-nijoq acid (NEPHROCAPS) 1 MG capsule Take 1 [...] ankle pain. 0 06/12/2020 06/12/2023 Discontinued lactulose 62820 mg powder for oral solution (19 sources) [...] mg / trimethoprim 160 mg oral tablet (20 sources) Dihydrofolate Reductase Inhibitor Antibacterial, Sulfonamide Antimicrobial [...] suspension (20 sources) Calcineurin Inhibitor Immunosuppressant Start: 03-04-2024 take 1 dose by mouth once Tacrolimus 0.2 MG Pack Mix 1 packet (0.2 mg) as directed and take by mouth every Thursday and Thursday. 8 Each 03/04/2024 Active Start: 02-19-2024 End: 03-02-2024 take 0.2 mg [...] or crush torsemide 20 mg oral tablet (11 sources) Loop Diuretic Start: 01-22-2024 End: 01-23-2024 [...] Oral, EVERY 6 HOURS NEEDED, Starting on Thu01/16/24 at 0202, Until Thu01/23/24 at 1752, Indigestion, Per 5 mL is [...] itraconazole Fax results to: Dr. White - [phone] Transplant Neph - [phone] Each 09/10/2023 01/19/2024 Discontinued (Medication Reconciliation (suppress cancel msg)) Start: 09-10-2023 CUSTOM MEDICAT ION Labs to be obtained: 1- Tacrolimus level, trough - collect twice weekly until 09/24/23, then weekly until 10/08/23, them once every two weeks there after. 2- Itraconazole level - obtain once between 09/14-09/18. 3- Chem 6 - Obtain weekly while on itraconazole Fax results to: Dr. White - [phone] [facility] - [phone] Each 0 09/10/2023 Active Diatrizoate (1 [...] Intravenous, EVERY 3 HOURS NEEDED, Starting on 01/22/24 at 1323, Until 01/23/24 at 0821, Severe Pain iodixanol (VISIPAQUE) injection 320 mg/mL for [facility] (1 source) Start: 05-17-2022 End: 05-20-2022 iodixanol (VISIPAQUE) injection 320 mg/mL for [facility] itraconazole 10 mg/ml oral solution (20 sources) Azole Antifungal Start: 01-16-2024 End: 01-23-2024 [...] 01/16/2023 Discontinued take 2 tablets by mo [facility] in the morning magnesium oxide (Mag-Ox) 400 MG tablet Take 2 tablets by mouth in the morning. 0 Active [facility] magnesium oxide (MAG-OX) 400 MG [...] (ROXICODONE) tablet 10 mg polyethylene glycol 3350 29479 mg powder for oral solution (20 sources) Osmotic Laxative Start: 01-16-2024 End: 01-23-2024 17 g, Oral, DAILY NEEDED, Starting on 01/16/24 at 0202, Until 01/23/24 at 1752, Constipation 1st Line Start: 08-28-2023 End: 09-11-2023 17 g, Oral, DAILY NEEDED, Starting on 08/28/23 at 1738, Until Thu09/11/23 at 1645, Constipation [...] rate of 5mg/min. Maximum of 40mg/day. sennosides, [facility] 8.6 mg oral tablet (1 source) Start: [...] S, First dose (after last modification) on 09/12/23 at 0900, Until Discontinued Caution check route [...] 3 11-03-2023 Episodic Congestive heart failure; nonhypertensive (17 sources) Acute diastolic heart failure; Translations: [Acute diastolic (congestive) heart failure] Onset: 4 01-20-2024 Chronic Coronary atherosclerosis and other heart disease (20 sources) Coronary arteriosclerosis; Translations: [Atherosclerotic heart disease of [place] coronary artery without angina pectoris] Onset: 3 [...] sources) Taking high risk medication; Translations: [Other custodial (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] Episodic Other and ill-defined [...] aorta] 01-06-2024 Chronic Pleurisy; pneumothorax; pulmonary collapse (13 sources) Pleural effusion; Translations: [Pleural effusion, not [...] W/AND (SUSP) EXPOS COVID-19] Onset: 2 Unclassified (19 sources) New Patient Onset: 3 03-26-2023 Unclassified (19 sources) Access to Medication(s) Onset: 3 03-26-2023 Unclassified (19 sources) Safety: Avoid toxicity that would cause discontinuation Onset: 3 03-26-2023 Unclassified (19 sources) Identify and eliminate barriers to patient adherence Onset: 3 03-26-2023 Unclassified (19 sources) Ensure that patient is receiving therapeutic [...] Onset: 11-08-2022 Episodic Fever of unknown origin (17 sources) Fever; Translations: [Fever, unspecified] Onset: 08-28-2023 Resolved: 09-10-2023 08-28-2023 Episodic Genitourinary symptoms and ill-defined conditions (7 sources) Retention of urine, unspecified; Translations: [Hematuria, unspecified] Onset: 05-11-2022 Episodic Mycoses (20 sources) Histoplasmosis; Translations: [Histoplasmosis, unspecified] Onset: 08-28-2023 09-10-2023 Episodic Nausea and vomiting (20 sources) Nausea and vomiting; Translations: [Nausea with vomiting, unspecified] Onset: 05-10-2020 05-10-2020 Episodic Other aftercare (2 sources) Other custodial (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; Translations: [OTH CORRECTION 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 THERAPY] Onset: 07-06-2022 Episodic Other aftercare (1 source) FPC (current) use of aspirin; Translations: [CORRECTION CURRENT USE OF ASPIRIN] Onset: 06-20-2022 Episodic [...] transplant] Onset: 08-28-2023 Unclassified (1 source) Other custodial (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; Translations: [Other custodial (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] Onset: 08-28-2023 Unclassified (1 source) Hypertension secondary to other renal disorders; Translations: [Hypertension secondary to other renal disorders] Onset: 08-28-2023 Results Test Name Value Interpretation Reference Range Facility B-TYPE NATRIURETIC PEPTIDE ( BRAIN)on 02-26-2024 Natriuretic peptide B (Bld) [Mass/Vol] 72 pg/mL Normal 0-100 [facility] Comment on above: Performed By: #### B BOILER ASSISTANT OPERATOR ####[facility] (DEFAULT)[address] [place] [address] Interpretation and review of laboratory results Normal [facility] Natriuretic peptide B (Bld) [Mass/Vol] 72 pg/mL 0 - 100 pg/mL [facility] CHEM 6 (LYTES, BUN CREA)on 0 02-26-2024 Anion gap [Moles/Vol] 13 mmol/L Normal 7-17 [facility] Comment on above: Performed By: #### C HM6 ####[facility] (DEFAULT)[address] [facility] [place] [address] Chloride [Moles/Vol] 107 mmol/L Normal 98-108 [facility] Comment on above: Performed By: #### C HM6 ####[facility] (DEFAULT)[address] [facility] [place] [address] CO2 [Moles/Vol] 25 mmol/L Normal 21-31 [facility] Comment on above: Performed By: #### C HM6 ####[facility] (DEFAULT)[address] [place] [address], [place] [address] Creatinine [Mass/Vol] 1.23 mg/dL Normal 0.70-1.30 [facility] Comment on above: Performed By: #### C HM6 ####[facility] (DEFAULT)[address] [place] [address], [place] [address] GFR/1.73 sq M.predicted among non-blacks MDRD (S/P/Bld) [Vol rate/Area] 70 mL/min/{1.73_m2} Normal >=60 [facility] Comment on above: Result Comment: Repo rted eGFR is based on the CKD-EPI 2020 equation using creatinine, age, and sex. Performed By: #### C HM6 ####[facility] (DEFAULT)[address] [facility] [place] [address] Potassium [Moles/Vol] 4.2 mmol/L Normal 3.5-5.0 [facility] Comment on above: Performed By: #### C HM6 ####[facility] (DEFAULT)[address] [facility] [place] [address] Sodium [Moles/Vol] 141 mmol/L Normal 135-145 [facility] Comment on above: Performed By: #### C HM6 ####[facility] (DEFAULT)[address] [place] [address], [place] [address] Urea nitrogen [Mass/Vol] 17 mg/dL Normal 7-25 [facility] Comment on above: Performed By: #### C HM6 ####[facility] (DEFAULT)[address] [place] [address] Urea nitrogen/Creatinine [Mass ratio] 14 mg/mg Normal [facility] Comment on above: Performed By: #### C HM6 ####[facility] (DEFAULT)[address] [place] [address] Anion gap [Moles/Vol] 13 mmol/L 7 - 17 mmol/L [facility] Chloride [Moles/Vol] 107 mmol/L 98 - 10 8 mmol/L [facility] CO2 [Moles/Vol] 25 mmol/L 21 - 31 mmol/L [facility] Creatinine [Mass/Vol] 1.23 mg/dL 0.70 - 1.30 mg/dL [facility] eGFR, CKD-EPI, Male 70 - PINF [facility] Comment on above: Reported eGFR is bas ed on the CKD-EPI 2020 equation using creatinine, age, and sex. Potassium [Moles/Vol] 4.2 mmol/L 3.5 - 5.0 mmol/L [facility] Sodium [Moles/Vol] 141 mmol/L 135 - 145 mmol/L [facility] Urea nitrogen [Mass/Vol] 17 mg/dL 7 - 25 mg/dL [facility] Urea nitrogen/Creatinine [Mass ratio] 14 mg/mg [facility] CBC,PLATELETSon 01-23-2024 Hematocrit (Bld) [Volume fraction] 37.0 % Low 39.6-48.8 [facility] Comment on above: Performed By: #### [facility] ####[facility] (DEFAULT)[address] [place] [address] Hemoglobin (Bld) [Mass/Vol] 12.0 g/dL Low 13.4-16.8 [facility] Comment on above: Performed By: #### [facility] ####[facility] (DEFAULT)[address] [facility] [place] [address] MCV (RBC) [Entitic vol] 88.1 fL Normal 79.0-94.5 [facility] Comment on above: Performed By: #### H EMOGC ####[facility] (DEFAULT)[address] [facility] [place] [address] Mean Cell Hgb 28.6 pg Normal 26.1-33.3 [facility] Comment on above: Performed By: #### H EMOGC ####[facility] (DEFAULT)[address] [facility] [place] [address] Mean Cell Hgb Conc 32.4 g/dL Normal 31.9-36.5 [facility] Comment on above: Performed By: #### H EMOGC ####[facility] (DEFAULT)[address] [facility] [place] [address] Platelet mean volume (Bld) [Entitic vol] 10.4 fL Normal 8.7-12.3 [facility] Comment on above: Performed By: #### H EMOGC ####[facility] (DEFAULT)[address] [place] [address], [place] [address] Platelets (Bld) [#/Vol] 170 10*3/uL Normal 146-337 [facility] Comment on above: Performed By: #### H EMOGC ####[facility] (DEFAULT)[address] [facility] [place] [address] RBC (Bld) [#/Vol] 4.20 10*6/uL Low 4.38-5.83 [facility] Comment on above: Performed By: #### H EMOGC ####[facility] (DEFAULT)[address] [facility] [place] [address] RBC Distribution 14.2 % Normal 10.9-14.[address] [facility] Comment on above: Performed By: #### H EMOGC ####[facility] (DEFAULT)[address] [place] [address] WBC (Bld) [#/Vol] 3.70 10*3/uL Low 3.73-10.10 [facility] Comment on above: Performed By: #### [facility] ####[facility] (DEFAULT)[address] [place] [address] Erythrocyte distribution width (RBC) [Ratio] 14.2 % 10.9 - 14.3 % [facility] Hematocrit (Bld) [Volume fraction] 37.0 % Low 39.6 - 48.8 % [facility] Hemoglobin (Bld) [Mass/Vol] 12.0 g/dL Low 13.4 - 16.8 g/dL [facility] Interpretation and review of laboratory results Abnormal [facility] MCH (RBC) [Entitic mass] 28.6 pg 26.1 - 33.3 pg [facility] MCHC (RBC) [Mass/Vol] 32.4 g/dL 31.9 - 36.5 g/dL [facility] MCV (RBC) [Entitic vol] 88.1 fL 79.0 - 94.5 fL [facility] Platelet mean volume (Bld) [Entitic vol] 10.4 fL 8.7 - 12.3 fL [facility] Platelets (Bld) [#/Vol] 170 10*3/uL 146 - 337 K/uL [facility] RBC (Bld) [#/Vol] 4.20 10*6/uL Low [facility] WBC (Bld) [#/Vol] 3.70 10*3/uL Low 3.73 - 10. 10 K/uL [facility] CHEM 7 (LYTES,BUN,CREA,GLUC) on 01-23-2024 Anion gap [Moles/Vol] 14 mmol/L Normal 7-17 [facility] Comment on above: Performed By: #### M GO, CHM7, [facility] ####[facility] (DEFAULT)[address] [place] [address] Chloride [Moles/Vol] 105 mmol/L Normal 98-108 [facility] Comment on above: Performed By: #### NATHANIEL RAMÍREZ, HFP ####[facility] (DEFAULT)[address] [facility] [place] [address] CO2 [Moles/Vol] 25 mmol/L Normal 21-31 [facility] Comment on above: Performed By: #### NATHANIEL RAMÍREZ, HFP ####[facility] (DEFAULT)[address] [facility] [place] [address] Creatinine [Mass/Vol] 1.32 mg/dL High 0.70-1.30 [facility] Comment on above: Performed By: #### NATHANIEL RAMÍREZ, HFP ####[facility] (DEFAULT)[address] [facility] [place] [address] GFR/1.73 sq M.predicted among non-blacks MDRD (S/P/Bld) [Vol rate/Area] 65 mL/min/{1.73_m2} Normal >=60 [facility] Comment on above: Result Comment: Repo rted eGFR is based on the CKD-EPI 2020 equation using creatinine, age, and sex. Performed By: #### NATHANIEL RAMÍREZ, HFP ####[facility] (DEFAULT)[address] [facility] [place] [address] Glucose [Mass/Vol] 94 mg/dL Normal 70-99 [facility] Comment on above: Performed By: #### NATHANIEL RAMÍREZ, HFP ####[facility] (DEFAULT)[address] [facility] [place] [address] Osmolality [Osmolality] 296 mosm/kg Normal 278-305 [facility] Comment on above: Performed By: #### NATHANIEL RAMÍREZ, HFP ####[facility] (DEFAULT)[address] [facility] [place] [address] Potassium [Moles/Vol] 3.8 mmol/L Normal 3.5-5.0 [facility] Comment on above: Performed By: #### M TJ BLOOM7, HFP ####[facility] (DEFAULT)[address] [facility] [place] [address] Sodium [Moles/Vol] 140 mmol/L Normal 135-145 [facility] Comment on above: Performed By: #### TJ RAMÍREZ7, HFP ####[facility] (DEFAULT)[address] [facility] [place] [address] Urea nitrogen [Mass/Vol] 23 mg/dL Normal 7-25 [facility] Comment on above: Performed By: #### M TJ BLOOM7, HFP ####[facility] (DEFAULT)[address] [facility] [place] [address] Urea nitrogen/Creatinine [Mass ratio] 17 mg/mg Normal [facility] Comment on above: Performed By: #### NATHANIEL RAMÍREZ, HFP ####[facility] (DEFAULT)[address] [facility] [place] [address] Anion gap [Moles/Vol] 14 mmol/L 7 - 17 mmol/L [facility] Chloride [Moles/Vol] 105 mmol/L 98 - 10 8 mmol/L [facility] CO2 [Moles/Vol] 25 mmol/L 21 - 31 mmol/L [facility] Creatinine [Mass/Vol] 1.32 mg/dL High 0.70 - 1.30 mg/dL [facility] eGFR, CKD-EPI, Male 65 - PINF [facility] Comment on above: Reported eGFR is bas ed on the CKD-EPI 2020 equation using creatinine, age, and sex. Glucose [Mass/Vol] 94 mg/dL 70 - 99 mg/dL [facility] Osmolality Calc [Osmolality] 296 [facility] Potassium [Moles/Vol] 3.8 mmol/L 3.5 - 5.0 mmol/L [facility] Sodium [Moles/Vol] 140 mmol/L 135 - 145 mmol/L [facility] Urea nitrogen [Mass/Vol] 23 mg/dL 7 - 25 mg/dL [facility] Urea nitrogen/Creatinine [Mass ratio] 17 mg/mg [facility] GLUCOSE POCon 01-23-2024 Glucose [Mass/Vol] 88 mg/dL 70 - 99 mg/dL [facility] POC Sample Type CAPBL [facility] Test performed at ad dress of the patient encounter. [facility] Glucose [Mass/Vol] 191 mg/dL High 70 - 99 mg/dL [facility] Interpretation and review of laboratory results Abnormal [facility] POC Sample Type CAPBL [facility] Test performed at ad dress of the patient encounter. [facility] HEPATIC FUNCTION PANELon Albumin [Mass/Vol] 3.9 g/dL Normal 3.5-5.0 [facility] Comment on above: Performed By: #### NATHANIEL RAMÍREZ, HFP ####[facility] (DEFAULT)[address] [facility] [place] [address] ALP [Catalytic activity/Vol] 83 U/L Normal 32-126 [facility] Comment on above: Performed By: #### NATHANIEL RAMRÍEZ, HFP ####[facility] (DEFAULT)[address] [place] [address] ALT [Catalytic activity/Vol] 9 U/L Low 10-52 [facility] Comment on above: Performed By: #### NATHANIEL RAMÍREZ, HFP ####[facility] (DEFAULT)[address] [facility] [place] [address] AST [Catalytic activity/Vol] 17 U/L Normal 10-39 [facility] Comment on above: Performed By: #### NATHANIEL RAMÍREZ, HFP ####[facility] (DEFAULT)[address] [place] [address] Bilirubin [Mass/Vol] 1.6 mg/dL High <1.5 [facility] Comment on above: Performed By: #### M NATHANIEL BLOOM, HFP ####[facility] (DEFAULT)[address] [place] [address] Bilirubin.indirect [Mass/Vol] 0.4 mg/dL High <0.3 [facility] Comment on above: Performed By: #### M NATHANIEL BLOOM, HFP ####[facility] (DEFAULT)[address] [facility] [place] [address] Protein [Mass/Vol] 6.6 g/dL Normal 6.4-8.3 [facility] Comment on above: Performed By: #### M NATHANIEL BLOOM, HFP ####[facility] (DEFAULT)[address] [facility] [place] [address] Albumin [Mass/Vol] 3.9 g/dL 3.5 - 5.0 g/dL [facility] ALP [Catalytic activity/Vol] 83 U/L 32 - 126 U/L [facility] ALT [Catalytic activity/Vol] 9 U/L Low 10 - 52 U/L [facility] AST [Catalytic activity/Vol] 17 U/L 10 - 39 U/L [facility] Bilirubin [Mass/Vol] 1.6 mg/dL High NINF - 1.5 mg/dL [facility] Bilirubin.direct [Mass/Vol] 0.4 mg/dL High NINF - 0.3 mg/dL [facility] Protein [Mass/Vol] 6.6 g/dL 6.4 - 8.3 g/dL [facility] ITRACONAZOLE LEVELon 01-23- 024 Hydroxyitraconazole [Mass/Vol] 7.6 mcg/mL [facility] Comment on above: REFERENCE VALUE No therapeutic range established; activity and serum concentration are similar to parent drug. ADDITIONAL INFORMATION This test was developed and its performance characteristics determined by [facility] in a manner consistent with CLIA requirements. This test has not been cleared or approved by the U.S. Food and Drug Administration. Test Performed by: [facility] [address] [place] [address] Railway Track Worker: Rosendo Bose M.D. Ph.D.; CLIA# [id number] Itraconazole [Mass/Vol] 6.0 mcg/mL [facility] Comment on above: REFERENCE VALUE >0.5 (localized infection), >1.0 (systemic infection) [facility] MAGNESIUMon 01-23-2024 Magnesium [Mass/Vol] 1.8 mg/dL Normal 1.6-2.6 [facility] Comment on above: Performed By: #### M , M7, HFP ####[facility] (DEFAULT)[address] [place] [address] Interpretation and review of laboratory results Normal [facility] Magnesium [Mass/Vol] 1.8 mg/dL 1.6 - 2 .6 mg/dL [facility] No Panel Informationon 01-23 Interpretation and review of laboratory results Abnormal [facility] TACROLIMUS LEVEL, TROUGH (NE E DRUG LEVEL)on 01-23-2024 Interpretation and review of laboratory results Normal [facility] Tacrolimus (Bld) [Mass/Vol] 7.0 ng/mL Bone Marrow Transplant: 4.0-12.0, Therapeutic: 5.0-15.0 [facility] Method performed is a chemiluminescent microparticle immunoasssay on the [employer] i2000. The range is based on experience at [facility] and users should be aware that target concentrations vary widely depending on concomitant therapy, time post-transplant, and desired degree of immunosuppression. [facility] Tacrolimus, Trough 7.0 ng/mL Normal Bone Susana ow Transplant: 4.0-12.0, Therapeutic: 5.0-15.0 [facility] Comment on above: Order Comment: Samrajoan colt draw at specified interval PRIOR to dose. Do not hold dose to wait for level. Specimens batched twice per day, (M-F) and once per day weekendsMethod performed is a chemiluminescent microparticle immunoasssay on the [employer] i2000.The range is based on experience at [facility] and users should be aware that target concentrations vary widely depending on concomitant therapy, time post-transplant, and desired degree of immunosuppression. Performed By: #### T ACRO ####[facility] (DEFAULT)[address] [place] [address] CARDIAC RHYTHM (SCANNED)on 0 01-22-2024 [facility] CBC,PLATELETSon 01-22-2024 Hematocrit (Bld) [Volume fraction] 41.5 % Normal 39.6-48.8 [facility] Comment on above: Performed By: #### H EMO ####[facility] (DEFAULT)[address] [place] [address] Hemoglobin (Bld) [Mass/Vol] 13.3 g/dL Low 13.4-16.8 [facility] Comment on above: Performed By: #### H EMOGC ####[facility] (DEFAULT)[address] [place] [address], [place] [address] MCV (RBC) [Entitic vol] 86.8 fL Normal 79.0-94.5 [facility] Comment on above: Performed By: #### H EMOGC ####[facility] (DEFAULT)[address] [place] [address] Mean Cell Hgb 27.8 pg Normal 26.1-33.3 [facility] Comment on above: Performed By: #### H EMOGC ####[facility] (DEFAULT)[address] [place] [address] Mean Cell Hgb Conc 32.0 g/dL Normal 31.9-36.5 [facility] Comment on above: Performed By: #### H EMOGC ####[facility] (DEFAULT)[address] [place] [address] Platelet mean volume (Bld) [Entitic vol] 10.5 fL Normal 8.7-12.3 [facility] Comment on above: Performed By: #### H EMOGC ####[facility] (DEFAULT)[address] [facility] [place] [address] Platelets (Bld) [#/Vol] 186 10*3/uL Normal 146-337 [facility] Comment on above: Performed By: #### H EMOGC ####[facility] (DEFAULT)[address] [facility] [place] [address] RBC (Bld) [#/Vol] 4.78 10*6/uL Normal 4.38-5.83 [facility] Comment on above: Performed By: #### H EMOGC ####[facility] (DEFAULT)[address] [facility] [place] [address] RBC Distribution 14.1 % Normal 10.9-14.[address] [facility] Comment on above: Performed By: #### H EMOGC ####[facility] (DEFAULT)[address] [facility] [place] [address] WBC (Bld) [#/Vol] 3.74 10*3/uL Normal 3.73-10.10 [facility] Comment on above: Performed By: #### H EMOGC ####[facility] (DEFAULT)[address] [facility] [place] [address] Erythrocyte distribution width (RBC) [Ratio] 14.1 % 10.9 - 14.3 % [facility] Hematocrit (Bld) [Volume fraction] 41.5 % 39.6 - 48.8 % [facility] Hemoglobin (Bld) [Mass/Vol] 13.3 g/dL Low 13.4 - 16.8 g/dL [facility] Interpretation and review of laboratory results Abnormal [facility] MCH (RBC) [Entitic mass] 27.8 pg 26.1 - 33.3 pg [facility] MCHC (RBC) [Mass/Vol] 32.0 g/dL 31.9 - 36.5 g/dL [facility] MCV (RBC) [Entitic vol] 86.8 fL 79.0 - 94.5 fL [facility] Platelet mean volume (Bld) [Entitic vol] 10.5 fL 8.7 - 12.3 fL [facility] Platelets (Bld) [#/Vol] 186 10*3/uL 146 - 337 K/uL [facility] RBC (Bld) [#/Vol] 4.78 10*6/uL [facility] WBC (Bld) [#/Vol] 3.74 10*3/uL 3.73 - 10. 10 K/uL [facility] CHEM 7 (LYTES,BUN,CREA,GLUC) on 01-22-2024 Anion gap [Moles/Vol] 13 mmol/L Normal 7-17 [facility] Comment on above: Performed By: ###NATHANIEL HERNANDEZ ####[facility] (DEFAULT)[address] [place] [address] Chloride [Moles/Vol] 109 mmol/L High 98-108 [facility] Comment on above: Performed By: #### NATHANIEL RAMÍREZ ####[facility] (DEFAULT)[address] [place] [address] CO2 [Moles/Vol] 23 mmol/L Normal 21-31 [facility] Comment on above: Performed By: #### NATHANIEL RAMÍREZ ####[facility] (DEFAULT)[address] [place] [address] Creatinine [Mass/Vol] 1.10 mg/dL Normal 0.70-1.30 [facility] Comment on above: Performed By: #### NATHANIEL RAMÍREZ ####[facility] (DEFAULT)[address] [place] [address] GFR/1.73 sq M.predicted among non-blacks MDRD (S/P/Bld) [Vol rate/Area] 81 mL/min/{1.73_m2} Normal >=60 [facility] Comment on above: Result Comment: Repo rted eGFR is based on the CKD-EPI 2020 equation using creatinine, age, and sex. Performed By: #### TJ RAMÍREZ7 ####[facility] (DEFAULT)[address] [place] [address] Glucose [Mass/Vol] 84 mg/dL Normal 70-99 [facility] Comment on above: Performed By: #### NATHANIEL RAMÍREZ ####[facility] (DEFAULT)[address] [place] [address] Osmolality [Osmolality] 295 mosm/kg Normal 278-305 [facility] Comment on above: Performed By: #### NATHANIEL RAMÍREZ ####[facility] (DEFAULT)[address] [place] [address] Potassium [Moles/Vol] 4.0 mmol/L Normal 3.5-5.0 [facility] Comment on above: Performed By: #### TJ RAMÍREZ7 ####[facility] (DEFAULT)[address] [place] [address] Sodium [Moles/Vol] 141 mmol/L Normal 135-145 [facility] Comment on above: Performed By: #### TJ RAMÍREZ7 ####[facility] (DEFAULT)[address] [place] [address] Urea nitrogen [Mass/Vol] 16 mg/dL Normal 7-25 [facility] Comment on above: Performed By: #### TJ RAMÍREZ7 ####[facility] (DEFAULT)[address] [place] [address] Urea nitrogen/Creatinine [Mass ratio] 15 mg/mg Normal [facility] Comment on above: Performed By: #### Rod BLOOM CHM7 ####[facility] (DEFAULT)[address] [place] [address] Anion gap [Moles/Vol] 13 mmol/L 7 - 17 mmol/L [facility] Chloride [Moles/Vol] 109 mmol/L High 98 - 10 8 mmol/L [facility] CO2 [Moles/Vol] 23 mmol/L 21 - 31 mmol/L [facility] Creatinine [Mass/Vol] 1.10 mg/dL 0.70 - 1.30 mg/dL [facility] eGFR, CKD-EPI, Male 81 - PINF [facility] Comment on above: Reported eGFR is bas ed on the CKD-EPI 2020 equation using creatinine, age, and sex. Glucose [Mass/Vol] 84 mg/dL 70 - 99 mg/dL [facility] Interpretation and review of laboratory results Abnormal [facility] Osmolality Calc [Osmolality] 295 [facility] Potassium [Moles/Vol] 4.0 mmol/L 3.5 - 5.0 mmol/L [facility] Sodium [Moles/Vol] 141 mmol/L 135 - 145 mmol/L [facility] Urea nitrogen [Mass/Vol] 16 mg/dL 7 - 25 mg/dL [facility] Urea nitrogen/Creatinine [Mass ratio] 15 mg/mg [facility] MAGNESIUMon 01-22-2024 Magnesium [Mass/Vol] 2.0 mg/dL Normal 1.6-2.6 [facility] Comment on above: Performed By: #### TJ RAMÍREZ7 ####[facility] (DEFAULT)[address] [place] [address] Interpretation and review of laboratory results Normal [facility] Magnesium [Mass/Vol] 2.0 mg/dL 1.6 - 2 .6 mg/dL [facility] No Panel Informationon 01-22 [facility] PT,INR,PTTon 01-22-2024 aPTT Coag (Bld) [Time] 29.2 s Normal 24.0-34.3 [facility] Comment on above: Performed By: #### P TPTT ####[facility] (DEFAULT)[address] [place] [address] INR Coag (PPP) [Relative time] 1.1 {INR} Normal 0.9-1.1 [facility] Comment on above: Performed By: #### P TPTT ####[facility] (DEFAULT)[address] [facility] [place] [address] PT Coag (PPP) [Time] 14.3 s High 11.9-14.2 [facility] Comment on above: Performed By: #### P TPTT ####[facility] (DEFAULT)[address] [facility] [place] [address] aPTT Coag (PPP) [Time] 29.2 s [facility] INR Coag (Bld) [Relative time] 1.1 {INR} 0.9 - 1.1 [facility] Interpretation and review of laboratory results Abnormal [facility] PT Coag (PPP) [Time] 14.3 s High [facility] TACROLIMUS LEVEL, TROUGH (NE E DRUG LEVEL)Ordered By: Sheree Jensen on 01-22-2024 Interpretation and review of laboratory results Normal [facility] Tacrolimus (Bld) [Mass/Vol] 7.9 ng/mL Bone Marrow Transplant: 4.0-12.0, Therapeutic: 5.0-15.0 [facility] Method performed is a chemiluminescent microparticle immunoasssay on the [employer] i2000. The range is based on experience at [facility] and users should be aware that target concentrations vary widely depending on concomitant therapy, time post-transplant, and desired degree of immunosuppression. [facility] TACROLIMUS LEVEL, TROUGH (NE E DRUG LEVEL)on 01-22-2024 Tacrolimus, Trough 7.9 ng/mL Normal Bone Susana ow Transplant: 4.0-12.0, Therapeutic: 5.0-15.0 [facility] Comment on above: Order Comment: Pleas e draw at specified interval PRIOR to dose. Do not hold dose to wait for level. Specimens batched twice per day, (M-F) and once per day weekendsMethod performed is a chemiluminescent microparticle immunoasssay on the [employer] i2000.The range is based on experience at [facility] and users should be aware that target concentrations vary widely depending on concomitant therapy, time post-transplant, and desired degree of immunosuppression. Performed By: #### T ACRO ####[facility] (DEFAULT)[address] [place] [address] TYPE AND SCREENon 01-22-2024 ABO/RH(D) TYPE Positive [facility] ABO/RH(D) TYPE Positive Normal [facility] Comment on above: Performed By: #### X M ####[facility] (DEFAULT)[address] [place] [address] [place] Unspecified body regionOr dered By: Unassigned Pacs on 01-22-2024 [facility] Work Phone: [place] Unspecified body regionon 01-22-2024 Radiology Study observation (narrative) [facility] CBC,PLATELETSon 01-21-2024 Hematocrit (Bld) [Volume fraction] 39.4 % Low 39.6-48.8 [facility] Comment on above: Performed By: #### [facility] ####[facility] (DEFAULT)[address] [place] [address] Hemoglobin (Bld) [Mass/Vol] 12.7 g/dL Low 13.4-16.8 [facility] Comment on above: Performed By: #### H EMO ####[facility] (DEFAULT)[address] [place] [address] MCV (RBC) [Entitic vol] 87.0 fL Normal 79.0-94.5 [facility] Comment on above: Performed By: #### H EMOGC ####[facility] (DEFAULT)[address] [place] [address] Mean Cell Hgb 28.0 pg Normal 26.1-33.3 [facility] Comment on above: Performed By: #### H EMOGC ####[facility] (DEFAULT)[address] [place] [address] Mean Cell Hgb Conc 32.2 g/dL Normal 31.9-36.5 [facility] Comment on above: Performed By: #### H EMOGC ####[facility] (DEFAULT)[address] [facility] [place] [address] Platelet mean volume (Bld) [Entitic vol] 10.2 fL Normal 8.7-12.3 [facility] Comment on above: Performed By: #### H EMOGC ####[facility] (DEFAULT)[address] [facility] [place] [address] Platelets (Bld) [#/Vol] 157 10*3/uL Normal 146-337 [facility] Comment on above: Performed By: #### H EMOGC ####[facility] (DEFAULT)[address] [facility] [place] [address] RBC (Bld) [#/Vol] 4.53 10*6/uL Normal 4.38-5.83 [facility] Comment on above: Performed By: #### H EMOGC ####[facility] (DEFAULT)[address] [facility] [place] [address] RBC Distribution 14.0 % Normal 10.9-14.[address] [facility] Comment on above: Performed By: #### H EMOGC ####[facility] (DEFAULT)[address] [place] [address] WBC (Bld) [#/Vol] 3.42 10*3/uL Low 3.73-10.10 [facility] Comment on above: Performed By: #### H EMOGC ####[facility] (DEFAULT)[address] [place] [address] Erythrocyte distribution width (RBC) [Ratio] 14.0 % 10.9 - 14.3 % [facility] Hematocrit (Bld) [Volume fraction] 39.4 % Low 39.6 - 48.8 % [facility] Hemoglobin (Bld) [Mass/Vol] 12.7 g/dL Low 13.4 - 16.8 g/dL [facility] Interpretation and review of laboratory results Abnormal [facility] MCH (RBC) [Entitic mass] 28.0 pg 26.1 - 33.3 pg [facility] MCHC (RBC) [Mass/Vol] 32.2 g/dL 31.9 - 36.5 g/dL [facility] MCV (RBC) [Entitic vol] 87.0 fL 79.0 - 94.5 fL [facility] Platelet mean volume (Bld) [Entitic vol] 10.2 fL 8.7 - 12.3 fL [facility] Platelets (Bld) [#/Vol] 157 10*3/uL 146 - 337 K/uL [facility] RBC (Bld) [#/Vol] 4.53 10*6/uL [facility] WBC (Bld) [#/Vol] 3.42 10*3/uL Low 3.73 - 10. 10 K/uL [facility] CHEM 7 (LYTES,BUN,CREA,GLUC) on 01-21-2024 Anion gap [Moles/Vol] 12 mmol/L Normal 7-17 [facility] Comment on above: Performed By: #### NATHANIEL RAMÍREZ ####[facility] (DEFAULT)[address] [place] [address] Chloride [Moles/Vol] 107 mmol/L Normal 98-108 [facility] Comment on above: Performed By: #### NATHANIEL RAMÍREZ ####[facility] (DEFAULT)[address] [place] [address] CO2 [Moles/Vol] 26 mmol/L Normal 21-31 [facility] Comment on above: Performed By: #### NATHANIEL RAMÍREZ ####[facility] (DEFAULT)[address] [place] [address] Creatinine [Mass/Vol] 1.11 mg/dL Normal 0.70-1.30 [facility] Comment on above: Performed By: #### TJ RAMÍREZ7 ####[facility] (DEFAULT)[address] [facility] [place] [address] GFR/1.73 sq M.predicted among non-blacks MDRD (S/P/Bld) [Vol rate/Area] 80 mL/min/{1.73_m2} Normal >=60 [facility] Comment on above: Result Comment: Repo rted eGFR is based on the CKD-EPI 2020 equation using creatinine, age, and sex. Performed By: #### NATHANIEL RAMÍREZ ####[facility] (DEFAULT)[address] [facility] [place] [address] Glucose [Mass/Vol] 93 mg/dL Normal 70-99 [facility] Comment on above: Performed By: #### NATHANIEL RAMÍREZ ####[facility] (DEFAULT)[address] [facility] [place] [address] Osmolality [Osmolality] 295 mosm/kg Normal 278-305 [facility] Comment on above: Performed By: #### NATHANIEL RAMÍREZ ####[facility] (DEFAULT)[address] [facility] [place] [address] Potassium [Moles/Vol] 3.9 mmol/L Normal 3.5-5.0 [facility] Comment on above: Performed By: #### TJ RAMÍREZ7 ####[facility] (DEFAULT)[address] [facility] [place] [address] Sodium [Moles/Vol] 141 mmol/L Normal 135-145 [facility] Comment on above: Performed By: #### M MERLE CHM7 ####[facility] (DEFAULT)[address] [facility] [place] [address] Urea nitrogen [Mass/Vol] 15 mg/dL Normal 7-25 [facility] Comment on above: Performed By: #### M MERLE CHM7 ####[facility] (DEFAULT)[address] [facility] [place] [address] Urea nitrogen/Creatinine [Mass ratio] 14 mg/mg Normal [facility] Comment on above: Performed By: #### M MERLE CHM7 ####[facility] (DEFAULT)[address] [place] [address] Anion gap [Moles/Vol] 12 mmol/L 7 - 17 mmol/L [facility] Chloride [Moles/Vol] 107 mmol/L 98 - 10 8 mmol/L [facility] CO2 [Moles/Vol] 26 mmol/L 21 - 31 mmol/L [facility] Creatinine [Mass/Vol] 1.11 mg/dL 0.70 - 1.30 mg/dL [facility] eGFR, CKD-EPI, Male 80 - PINF [facility] Comment on above: Reported eGFR is bas ed on the CKD-EPI 2020 equation using creatinine, age, and sex. Glucose [Mass/Vol] 93 mg/dL 70 - 99 mg/dL [facility] Osmolality Calc [Osmolality] [facility] Potassium [Moles/Vol] 3.9 mmol/L 3.5 - 5.0 mmol/L [facility] Sodium [Moles/Vol] 141 mmol/L 135 - 145 mmol/L [facility] Urea nitrogen [Mass/Vol] 15 mg/dL 7 - 25 mg/dL [facility] Urea nitrogen/Creatinine [Mass ratio] 14 mg/mg [facility] Cardiac catheterization stud yOrdered By: Kelvin Donohue on 01-21-2024 Body surface area Derived from formula 2.08 m2 [facility] Work Phone: [facility] Work Phone: Cardiac catheterization stud [...] with fistula occlusion Kelvin Donohue MD, MPH [facility] Worker [facility] Internal Medicine. Section of Advanced Heart Failure and Transplantation Division of Cardiovascular Diseases [facility] [email or web address] INVASIVE CARDIOVASCULAR PROC EDUREon 01-21-2024 INVASIVE CARDIOVASCULAR PROCEDURE Normal [facility] MAGNESIUMon 01-21-2024 Magnesium [Mass/Vol] 1.5 mg/dL Low 1.6-2.6 [facility] Comment on above: Performed By: #### M MERLE [facility] ####[facility] (DEFAULT)[address] [place] [address] Interpretation and review of laboratory results Abnormal [facility] Magnesium [Mass/Vol] 1.5 mg/dL Low 1.6 - 2 .6 mg/dL [facility] No Panel Informationon 01-21 [facility] TACROLIMUS LEVEL, TROUGH (NE E DRUG LEVEL)on 01-21-2024 Interpretation and review of laboratory results Normal [facility] Tacrolimus (Bld) [Mass/Vol] 7.2 ng/mL Bone Marrow Transplant: 4.0-12.0, Therapeutic: 5.0-15.0 [facility] Method performed is a chemiluminescent microparticle immunoasssay on the [employer] i2000. The range is based on experience at [facility] and users should be aware that target concentrations vary widely depending on concomitant therapy, time post-transplant, and desired degree of immunosuppression. [facility] Tacrolimus, Trough 7.2 ng/mL Normal Bone Susana ow Transplant: 4.0-12.0, Therapeutic: 5.0-15.0 [facility] Comment on above: Order Comment: Pleas e draw at specified interval PRIOR to dose. Do not hold dose to wait for level. Specimens batched twice per day, (M-F) and once per day weekendsMethod performed is a chemiluminescent microparticle immunoasssay on the [employer] i2000.The range is based on experience at [facility] and users should be aware that target concentrations vary widely depending on concomitant therapy, time post-transplant, and desired degree of immunosuppression. Performed By: #### T ACRO ####[facility] (DEFAULT)[address] [place] [address] CBC,PLATELETSon 01-20-2024 Hematocrit (Bld) [Volume fraction] 38.9 % Low 39.6-48.8 [facility] Comment on above: Performed By: #### [facility] ####[facility] (DEFAULT)[address] [place] [address] Hemoglobin (Bld) [Mass/Vol] 12.5 g/dL Low 13.4-16.8 [facility] Comment on above: Performed By: #### [facility] ####[facility] (DEFAULT)[address] [place] [address] MCV (RBC) [Entitic vol] 87.2 fL Normal 79.0-94.5 [facility] Comment on above: Performed By: #### H EMO ####[facility] (DEFAULT)[address] [place] [address] Mean Cell Hgb 28.0 pg Normal 26.1-33.3 [facility] Comment on above: Performed By: #### H EMOGC ####[facility] (DEFAULT)[address] [place] [address] Mean Cell Hgb Conc 32.1 g/dL Normal 31.9-36.5 [facility] Comment on above: Performed By: #### H EMOGC ####[facility] (DEFAULT)[address] [place] [address] Platelet mean volume (Bld) [Entitic vol] 10.2 fL Normal 8.7-12.3 [facility] Comment on above: Performed By: #### H EMOGC ####[facility] (DEFAULT)[address] [facility] [place] [address] Platelets (Bld) [#/Vol] 166 10*3/uL Normal 146-337 [facility] Comment on above: Performed By: #### H EMOGC ####[facility] (DEFAULT)[address] [facility] [place] [address] RBC (Bld) [#/Vol] 4.46 10*6/uL Normal 4.38-5.83 [facility] Comment on above: Performed By: #### H EMOGC ####[facility] (DEFAULT)[address] [facility] [place] [address] RBC Distribution 13.8 % Normal 10.9-14.[address] [facility] Comment on above: Performed By: #### H EMOGC ####[facility] (DEFAULT)[address] [facility] [place] [address] WBC (Bld) [#/Vol] 3.79 10*3/uL Normal 3.73-10.10 [facility] Comment on above: Performed By: #### H EMOGC ####[facility] (DEFAULT)[address] [facility] [place] [address] Erythrocyte distribution width (RBC) [Ratio] 13.8 % 10.9 - 14.3 % [facility] Hematocrit (Bld) [Volume fraction] 38.9 % Low 39.6 - 48.8 % [facility] Hemoglobin (Bld) [Mass/Vol] 12.5 g/dL Low 13.4 - 16.8 g/dL [facility] Interpretation and review of laboratory results Abnormal [facility] MCH (RBC) [Entitic mass] 28.0 pg 26.1 - 33.3 pg [facility] MCHC (RBC) [Mass/Vol] 32.1 g/dL 31.9 - 36.5 g/dL [facility] MCV (RBC) [Entitic vol] 87.2 fL 79.0 - 94.5 fL [facility] Platelet mean volume (Bld) [Entitic vol] 10.2 fL 8.7 - 12.3 fL [facility] Platelets (Bld) [#/Vol] 166 10*3/uL 146 - 337 K/uL [facility] RBC (Bld) [#/Vol] 4.46 10*6/uL [facility] WBC (Bld) [#/Vol] 3.79 10*3/uL 3.73 - 10. 10 K/uL [facility] CHEM 7 (LYTES,BUN,CREA,GLUC) on 01-20-2024 Anion gap [Moles/Vol] 12 mmol/L Normal 7-17 [facility] Comment on above: Performed By: #### TAVO RAMÍREZ, CHM7 ####[facility] (DEFAULT)[address] [place] [address] Chloride [Moles/Vol] 105 mmol/L Normal 98-108 [facility] Comment on above: Performed By: #### TAVO RAMÍREZ, CHM7 ####[facility] (DEFAULT)[address] [place] [address] CO2 [Moles/Vol] 28 mmol/L Normal 21-31 [facility] Comment on above: Performed By: #### TAVO RAMÍREZ, CHM7 ####[facility] (DEFAULT)[address] [place] [address] Creatinine [Mass/Vol] 1.12 mg/dL Normal 0.70-1.30 [facility] Comment on above: Performed By: #### TAVO RAMÍREZ, CHM7 ####[facility] (DEFAULT)[address] [facility] [place] [address] GFR/1.73 sq M.predicted among non-blacks MDRD (S/P/Bld) [Vol rate/Area] 79 mL/min/{1.73_m2} Normal >=60 [facility] Comment on above: Result Comment: Repo rted eGFR is based on the CKD-EPI 2020 equation using creatinine, age, and sex. Performed By: #### TAVO RAMÍREZ CHM7 ####[facility] (DEFAULT)[address] [facility] [place] [address] Glucose [Mass/Vol] 88 mg/dL Normal 70-99 [facility] Comment on above: Performed By: #### TAVO RAMÍREZ CHM7 ####[facility] (DEFAULT)[address] [facility] [place] [address] Osmolality [Osmolality] 294 mosm/kg Normal 278-305 [facility] Comment on above: Performed By: #### TAVO RAMÍREZ, CHM7 ####[facility] (DEFAULT)[address] [facility] [place] [address] Potassium [Moles/Vol] 3.8 mmol/L Normal 3.5-5.0 [facility] Comment on above: Performed By: #### TAVO RAMÍREZ, CHM7 ####[facility] (DEFAULT)[address] [facility] [place] [address] Sodium [Moles/Vol] 141 mmol/L Normal 135-145 [facility] Comment on above: Performed By: #### TAVO RAMÍREZ, CHM7 ####[facility] (DEFAULT)[address] [facility] [place] [address] Urea nitrogen [Mass/Vol] 15 mg/dL Normal 7-25 [facility] Comment on above: Performed By: #### M TAVO BLOOM, CHM7 ####[facility] (DEFAULT)[address] [facility] [place] [address] Urea nitrogen/Creatinine [Mass ratio] 13 mg/mg Normal [facility] Comment on above: Performed By: #### M TAVO BLOOM, CHM7 ####[facility] (DEFAULT)[address] [facility] [place] [address] Anion gap [Moles/Vol] 12 mmol/L 7 - 17 mmol/L [facility] Chloride [Moles/Vol] 105 mmol/L 98 - 10 8 mmol/L [facility] CO2 [Moles/Vol] 28 mmol/L 21 - 31 mmol/L [facility] Creatinine [Mass/Vol] 1.12 mg/dL 0.70 - 1.30 mg/dL [facility] eGFR, CKD-EPI, Male 80 - PINF [facility] Comment on above: Reported eGFR is bas ed on the CKD-EPI 2020 equation using creatinine, age, and sex. Glucose [Mass/Vol] 88 mg/dL 70 - 99 mg/dL [facility] Osmolality Calc [Osmolality] 294 [facility] Potassium [Moles/Vol] 3.8 mmol/L 3.5 - 5.0 mmol/L [facility] Sodium [Moles/Vol] 141 mmol/L 135 - 145 mmol/L [facility] Urea nitrogen [Mass/Vol] 15 mg/dL 7 - 25 mg/dL [facility] Urea nitrogen/Creatinine [Mass ratio] 13 mg/mg [facility] Cardiac catheterization stud yon 01-20-2024 [facility] Radiology Study observation (narrative) [facility] Radiology Study observation (narrative) [facility] EBV BY PCR, QUANTITATIVE,BLO ODOrdered By: Charlotte Jensen on 01-20-2024 EBV DNA ESTELITA+probe (Unsp spec) [#/Vol] NINF [facility] Interpretation and review of laboratory results Normal [facility] This test was perfor med using a real time PCR assay. The dynamic range for this assay is 1000-5,000,000 IU/mL. A result <1000 IU/mL does not rule out the presence of EBV DNA in quantities below the sensitivity of this assay. This test was developed and its performance characteristics determined by [facility]. It has not been cleared or approved by the FDA. The laboratory is regulated under CLIA as qualified to perform high-complexity testing. This test is used for clinical purposes. It should not be regarded as investigational or for research. [facility] HEPATIC FUNCTION PANELon Albumin [Mass/Vol] 3.7 g/dL Normal 3.5-5.0 [facility] Comment on above: Performed By: #### TAVO RAMÍREZ, CHM7 ####[facility] (DEFAULT)[address] [facility] [place] [address] ALP [Catalytic activity/Vol] 73 U/L Normal 32-126 [facility] Comment on above: Performed By: #### TAVO RAMÍREZ, CHM7 ####[facility] (DEFAULT)[address] [place] [address] ALT [Catalytic activity/Vol] 12 U/L Normal 10-52 [facility] Comment on above: Performed By: #### TAVO RAMÍREZ, CHM7 ####[facility] (DEFAULT)[address] [place] [address] AST [Catalytic activity/Vol] 19 U/L Normal 10-39 [facility] Comment on above: Performed By: #### TAVO RAMÍREZ, CHM7 ####[facility] (DEFAULT)[address] [place] [address] Bilirubin [Mass/Vol] 2.1 mg/dL High <1.5 [facility] Comment on above: Performed By: #### M TAVO BLOOM, CHM7 ####[facility] (DEFAULT)[address] [facility] [place] [address] Bilirubin.indirect [Mass/Vol] 0.5 mg/dL High <0.3 [facility] Comment on above: Performed By: #### M TAVO BLOOM, CHM7 ####[facility] (DEFAULT)[address] [facility] [place] [address] Protein [Mass/Vol] 6.1 g/dL Low 6.4-8.3 [facility] Comment on above: Performed By: #### M TAVO BLOOM, CHM7 ####[facility] (DEFAULT)[address] [facility] [place] [address] Albumin [Mass/Vol] 3.7 g/dL 3.5 - 5.0 g/dL [facility] ALP [Catalytic activity/Vol] 73 U/L 32 - 126 U/L [facility] ALT [Catalytic activity/Vol] 12 U/L 10 - 52 U/L [facility] AST [Catalytic activity/Vol] 19 U/L 10 - 39 U/L [facility] Bilirubin [Mass/Vol] 2.1 mg/dL High NINF - 1.5 mg/dL [facility] Bilirubin.direct [Mass/Vol] 0.5 mg/dL High NINF - 0.3 mg/dL [facility] Interpretation and review of laboratory results Abnormal [facility] Protein [Mass/Vol] 6.1 g/dL Low 6.4 - 8.3 g/dL [facility] ITRACONAZOLE LEVELon 024 Hydroxyitraconazole 7.6 mcg/mL Normal [facility] Comment on above: Order Comment: Dilan gregory draw level at specified interval PRIOR to dose. Result Comment: ---- REFERENCE VALUE No therapeutic range established; activity and serumconcentration are similar to parent drug. ADDITIONAL INFORMATION This test was developed and its performance characteristicsdetermined by [facility] in a manner consistent with CLIArequirements. This test has not been cleared or approved bythe U.S. Food and Drug Administration.Test Performed by:[facility] - [address] [address]Ecn Director: Rosendo Bose M.D. Ph.D.; CLIA# [id number] Performed By: #### Y ITCON ####[facility] (DEFAULT)[address] [address] Itraconazole 6.0 mcg/mL Normal [facility] Comment on above: Order Comment: Pleas e draw level at specified interval PRIOR to dose. Result Comment: ---- REFERENCE VALUE-------------------------->0.5 (localized infection), >1.0 (systemic infection) Performed By: #### Y ITCON ####[facility] (DEFAULT)[address] [place] [address] MAGNESIUMon 01-20-2024 Magnesium [Mass/Vol] 1.6 mg/dL Normal 1.6-2.6 [facility] Comment on above: Performed By: #### M MERLE, [facility], CHM7 ####[facility] (DEFAULT)[address] [place] [address] Interpretation and review of laboratory results Normal [facility] Magnesium [Mass/Vol] 1.6 mg/dL 1.6 - 2 .6 mg/dL [facility] No Panel Informationon 01-20 [facility] POCT CO-OXIMETRYon Hemoglobin (Bld) [Mass/Vol] 12.8 g/dL Low 13.4 - 16.8 g/dL [facility] Interpretation and review of laboratory results Abnormal [facility] Oxyhemoglobin 69 % Low 94 - 98 % [facility] Ordering physician notified. Test performed at address of the patient encounter. [facility] Hemoglobin (Bld) [Mass/Vol] 13.3 g/dL Low 13.4 - 16.8 g/dL [facility] Interpretation and review of laboratory results Abnormal [facility] Oxyhemoglobin 69 % Low 94 - 98 % [facility] Ordering physician notified. Test performed at address of the patient encounter. [facility] PT,INR,PTTon 01-20-2024 aPTT Coag (Bld) [Time] 30.6 s Normal 24.0-34.3 [facility] Comment on above: Performed By: #### P TPTT ####[facility] (DEFAULT)[address] [place] [address] INR Coag (PPP) [Relative time] 1.2 {INR} High 0.9-1.1 [facility] Comment on above: Performed By: #### P TPTT ####[facility] (DEFAULT)[address] [facility] [place] [address] PT Coag (PPP) [Time] 15.5 s High 11.9-14.2 [facility] Comment on above: Performed By: #### P TPTT ####[facility] (DEFAULT)[address] [facility] [place] [address] aPTT Coag (PPP) [Time] 30.6 s [facility] INR Coag (Bld) [Relative time] 1.2 {INR} High 0.9 - 1.1 [facility] Interpretation and review of laboratory results Abnormal [facility] PT Coag (PPP) [Time] 15.5 s High [facility] TACROLIMUS LEVEL, TROUGH (NE E DRUG LEVEL)Ordered By: Yanira Marcum on 01-20-2024 Interpretation and review of laboratory results Normal [facility] Tacrolimus (Bld) [Mass/Vol] 7.7 ng/mL Bone Marrow Transplant: 4.0-12.0, Therapeutic: 5.0-15.0 [facility] Method performed is a chemiluminescent microparticle immunoasssay on the [employer] i2000. The range is based on experience at [facility] and users should be aware that target concentrations vary widely depending on concomitant therapy, time post-transplant, and desired degree of immunosuppression. [facility] TACROLIMUS LEVEL, TROUGH (NE E DRUG LEVEL)on 01-20-2024 Tacrolimus, Trough 7.7 ng/mL Normal [facility] Susana ow Transplant: 4.0-12.0, Therapeutic: 5.0-15.0 [facility] Comment on above: Order Comment: Pleas e draw at specified interval PRIOR to dose. Do not hold dose to wait for level. Specimens batched twice per day, (M-F) and once per day weekendsMethod performed is a chemiluminescent microparticle immunoasssay on the [employer] i2000.The range is based on experience at [facility] and users should be aware that target concentrations vary widely depending on concomitant therapy, time post-transplant, and desired degree of immunosuppression. Performed By: #### T ACRO ####[facility] (DEFAULT)[address] [place] [address] CBC,PLATELETSon 01-19-2024 Hematocrit (Bld) [Volume fraction] 37.5 % Low 39.6-48.8 [facility] Comment on above: Performed By: #### [facility] ####[facility] (DEFAULT)[address] [place] [address] Hemoglobin (Bld) [Mass/Vol] 12.1 g/dL Low 13.4-16.8 [facility] Comment on above: Performed By: #### [facility] ####[facility] (DEFAULT)[address] [place] [address] MCV (RBC) [Entitic vol] 87.8 fL Normal 79.0-94.5 [facility] Comment on above: Performed By: #### H EMOGC ####[facility] (DEFAULT)[address] [place] [address] Mean Cell Hgb 28.3 pg Normal 26.1-33.3 [facility] Comment on above: Performed By: #### H EMOGC ####[facility] (DEFAULT)[address] [place] [address] Mean Cell Hgb Conc 32.3 g/dL Normal 31.9-36.5 [facility] Comment on above: Performed By: #### H EMOGC ####[facility] (DEFAULT)[address] [place] [address] Platelet mean volume (Bld) [Entitic vol] 10.4 fL Normal 8.7-12.3 [facility] Comment on above: Performed By: #### H EMOGC ####[facility] (DEFAULT)[address] [place] [address] Platelets (Bld) [#/Vol] 163 10*3/uL Normal 146-337 [facility] Comment on above: Performed By: #### H EMOGC ####[facility] (DEFAULT)[address] [place] [address] RBC (Bld) [#/Vol] 4.27 10*6/uL Low 4.38-5.83 [facility] Comment on above: Performed By: #### H EMOGC ####[facility] (DEFAULT)[address] [place] [address] RBC Distribution 13.9 % Normal 10.9-14.[address] [facility] Comment on above: Performed By: #### H EMOGC ####[facility] (DEFAULT)[address] [place] [address] WBC (Bld) [#/Vol] 3.69 10*3/uL Low 3.73-10.10 [facility] Comment on above: Performed By: #### [facility] ####[facility] (DEFAULT)[address] [place] [address] Erythrocyte distribution width (RBC) [Ratio] 13.9 % 10.9 - 14.3 % [facility] Hematocrit (Bld) [Volume fraction] 37.5 % Low 39.6 - 48.8 % [facility] Hemoglobin (Bld) [Mass/Vol] 12.1 g/dL Low 13.4 - 16.8 g/dL [facility] Interpretation and review of laboratory results Abnormal [facility] MCH (RBC) [Entitic mass] 28.3 pg 26.1 - 33.3 pg [facility] MCHC (RBC) [Mass/Vol] 32.3 g/dL 31.9 - 36.5 g/dL [facility] MCV (RBC) [Entitic vol] 87.8 fL 79.0 - 94.5 fL [facility] Platelet mean volume (Bld) [Entitic vol] 10.4 fL 8.7 - 12.3 fL [facility] Platelets (Bld) [#/Vol] 163 10*3/uL 146 - 337 K/uL [facility] RBC (Bld) [#/Vol] 4.27 10*6/uL Low [facility] WBC (Bld) [#/Vol] 3.69 10*3/uL Low 3.73 - 10. 10 K/uL [facility] CHEM 7 (LYTES,BUN,CREA,GLUC) on 01-19-2024 Anion gap [Moles/Vol] 14 mmol/L Normal 7-17 [facility] Comment on above: Performed By: ###NATHANIEL HERNANDEZ ####[facility] (DEFAULT)[address] [place] [address] Chloride [Moles/Vol] 106 mmol/L Normal 98-108 [facility] Comment on above: Performed By: ###NATHANIEL HERNANDEZ ####[facility] (DEFAULT)[address] [place] [address] CO2 [Moles/Vol] 24 mmol/L Normal 21-31 [facility] Comment on above: Performed By: #### Rod BLOOM CHM7 ####[facility] (DEFAULT)[address] [place] [address] Creatinine [Mass/Vol] 1.13 mg/dL Normal 0.70-1.30 [facility] Comment on above: Performed By: #### Rod BLOOM CHM7 ####[facility] (DEFAULT)[address] [place] [address] GFR/1.73 sq M.predicted among non-blacks MDRD (S/P/Bld) [Vol rate/Area] 78 mL/min/{1.73_m2} Normal >=60 [facility] Comment on above: Result Comment: Repo rted eGFR is based on the CKD-EPI 2020 equation using creatinine, age, and sex. Performed By: #### TJ RAMÍREZ7 ####[facility] (DEFAULT)[address] [facility] [place] [address] Glucose [Mass/Vol] 86 mg/dL Normal 70-99 [facility] Comment on above: Performed By: #### Rod BLOOM CHM7 ####[facility] (DEFAULT)[address] [facility] [place] [address] Osmolality [Osmolality] 293 mosm/kg Normal 278-305 [facility] Comment on above: Performed By: #### Rod BLOOM CHM7 ####[facility] (DEFAULT)[address] [place] [address] Potassium [Moles/Vol] 3.8 mmol/L Normal 3.5-5.0 [facility] Comment on above: Performed By: #### Rod BLOOM CHM7 ####[facility] (DEFAULT)[address] [place] [address] Sodium [Moles/Vol] 140 mmol/L Normal 135-145 [facility] Comment on above: Performed By: #### Rod BLOOM CHM7 ####[facility] (DEFAULT)[address] [facility] [place] [address] Urea nitrogen [Mass/Vol] 16 mg/dL Normal 7-25 [facility] Comment on above: Performed By: #### Rod BLOOM CHM7 ####[facility] (DEFAULT)[address] [facility] [place] [address] Urea nitrogen/Creatinine [Mass ratio] 14 mg/mg Normal [facility] Comment on above: Performed By: #### Rod BLOOM CHM7 ####[facility] (DEFAULT)[address] [facility] [place] [address] Anion gap [Moles/Vol] 14 mmol/L 7 - 17 mmol/L [facility] Chloride [Moles/Vol] 106 mmol/L 98 - 10 8 mmol/L [facility] CO2 [Moles/Vol] 24 mmol/L 21 - 31 mmol/L [facility] Creatinine [Mass/Vol] 1.13 mg/dL 0.70 - 1.30 mg/dL [facility] eGFR, CKD-EPI, Male 78 - PINF [facility] Comment on above: Reported eGFR is bas ed on the CKD-EPI 2020 equation using creatinine, age, and sex. Glucose [Mass/Vol] 86 mg/dL 70 - 99 mg/dL [facility] Osmolality Calc [Osmolality] 293 [facility] Potassium [Moles/Vol] 3.8 mmol/L 3.5 - 5.0 mmol/L [facility] Sodium [Moles/Vol] 140 mmol/L 135 - 145 mmol/L [facility] Urea nitrogen [Mass/Vol] 16 mg/dL 7 - 25 mg/dL [facility] Urea nitrogen/Creatinine [Mass ratio] 14 mg/mg [facility] EBV BY PCR, QUANTITATIVE,BLO ODon 01-19-2024 Ebv By Pcr, Quant, Blood <1000 Normal <1000 [facility] Comment on above: Order Comment: This test was performed using a real time PCR assay. The dynamic range for this assay is 1000-5,000,000 IU/mL. A result <1000 IU/mL does not rule out the presence of EBV DNA in quantities below the sensitivity of this assay. This test was developed and its performance characteristics determined by [facility]. It has not been cleared or approved by the FDA. The laboratory is regulated under CLIA as qualified to perform high-complexity testing. This test is used for clinical purposes. It should not be regarded as investigational or for research. Performed By: #### E BVPCR ####[facility] (DEFAULT)[address] [place] [address] HISTOPLASMA AND BLASTOMYCES ANTIGEN, ENZYME IMMUNOASSAY, SERMon 01-19-2024 Histoplasma/Blastomy antonia Ag Result Not detected Not Detected [facility] Comment on above: No antigen from Hist oplasma or Blastomyces detected. False negative results may occur depending on extent of disease, and/or site of infection. Repeat testing on a new specimen if clinically indicated. Histoplasma/Blastomy antonia Ag Value Not detected ng/mL [facility] Comment on above: ADDITIONAL INFORMATION This test was developed and its performance characteristics determined by [facility] in a manner consistent with CLIA requirements. This test has not been cleared or approved by the U.S. Food and Drug Administration. Test Performed by: [facility] [place] [address] [place] [address] Railway [employer] Worker: Rosendo Bose M.D. Ph.D.; CLIA# [id number] [facility] MAGNESIUMon 01-19-2024 Magnesium [Mass/Vol] 1.8 mg/dL Normal 1.6-2.6 [facility] Comment on above: Performed By: #### M GO, CHM7 ####[facility] (DEFAULT)[address] [place] [address] Interpretation and review of laboratory results Normal [facility] Magnesium [Mass/Vol] 1.8 mg/dL 1.6 - 2 .6 mg/dL [facility] No Panel Informationon 01-19 [facility] TACROLIMUS LEVEL, TROUGH (NE E DRUG LEVEL)Ordered By: Raymundo Mehta on 01-19-2024 Interpretation and review of laboratory results Normal [facility] Tacrolimus (Bld) [Mass/Vol] 6.8 ng/mL Bone Marrow Transplant: 4.0-12.0, Therapeutic: 5.0-15.0 [facility] Method performed is a chemiluminescent microparticle immunoasssay on the [employer] i2000. The range is based on experience at [facility] and users should be aware that target concentrations vary widely depending on concomitant therapy, time post-transplant, and desired degree of immunosuppression. [facility] TACROLIMUS LEVEL, TROUGH (NE E DRUG LEVEL)on 01-19-2024 Tacrolimus, Trough 6.8 ng/mL Normal [facility] Transplant: 4.0-12.0, Therapeutic: 5.0-15.0 [facility] Comment on above: Order Comment: Pleas e draw at specified interval PRIOR to dose. Do not hold dose to wait for level. Specimens batched twice per day, (M-F) and once per day weekendsMethod performed is a chemiluminescent microparticle immunoasssay on the [employer] i2000.The range is based on experience at [facility] and users should be aware that target concentrations vary widely depending on concomitant therapy, time post-transplant, and desired degree of immunosuppression. Performed By: #### T ACRO ####[facility] (DEFAULT)[address] [place] [address] US AV fistulaOrdered By: Diana Reyes on 01-19-2024 [facility] Work Phone: US AV fistulaon 01-19-2024 Radiology Study observation (narrative) [facility] AFP TUMOR MARKEROrdered By: Francisca Alaniz on 01-18-2024 AFP.tumor marker [Mass/Vol] ng/mL NINF - 8.1 ng/mL [facility] Comment on above: This test was perfor med on the Dizmo IM Immunoassay platform by [employer] which is a two-site sandwich chemiluminescent immunoassay. It is important to note that assays using different manufacturers and/or methods may not be comparable. Interpretation and review of laboratory results Normal [facility] CBC,PLATELETSon 01-18-2024 Hematocrit (Bld) [Volume fraction] 38.4 % Low 39.6-48.8 [facility] Comment on above: Performed By: #### H EMOGC ####[facility] (DEFAULT)[address] [facility] [place] [address] Hemoglobin (Bld) [Mass/Vol] 12.1 g/dL Low 13.4-16.8 [facility] Comment on above: Performed By: #### H EMOGC ####[facility] (DEFAULT)[address] [place] [address] MCV (RBC) [Entitic vol] 88.3 fL Normal 79.0-94.5 [facility] Comment on above: Performed By: #### H EMOGC ####[facility] (DEFAULT)[address] [place] [address] Mean Cell Hgb 27.8 pg Normal 26.1-33.3 [facility] Comment on above: Performed By: #### H EMOGC ####[facility] (DEFAULT)[address] [place] [address] Mean Cell Hgb Conc 31.5 g/dL Low 31.9-36.5 [facility] Comment on above: Performed By: #### H EMOGC ####[facility] (DEFAULT)[address] [place] [address] Platelet mean volume (Bld) [Entitic vol] 10.4 fL Normal 8.7-12.3 [facility] Comment on above: Performed By: #### H EMOGC ####[facility] (DEFAULT)[address] [facility] [place] [address] Platelets (Bld) [#/Vol] 183 10*3/uL Normal 146-337 [facility] Comment on above: Performed By: #### H EMO ####[facility] (DEFAULT)[address] [facility] [place] [address] RBC (Bld) [#/Vol] 4.35 10*6/uL Low 4.38-5.83 [facility] Comment on above: Performed By: #### H EMO ####[facility] (DEFAULT)[address] [facility] [place] [address] RBC Distribution 13.9 % Normal 10.9-14.[address] [facility] Comment on above: Performed By: #### H EMO ####[facility] (DEFAULT)[address] [facility] [place] [address] WBC (Bld) [#/Vol] 3.66 10*3/uL Low 3.73-10.10 [facility] Comment on above: Performed By: #### H EMO ####[facility] (DEFAULT)[address] [facility] [place] [address] Erythrocyte distribution width (RBC) [Ratio] 13.9 % 10.9 - 14.3 % [facility] Hematocrit (Bld) [Volume fraction] 38.4 % Low 39.6 - 48.8 % [facility] Hemoglobin (Bld) [Mass/Vol] 12.1 g/dL Low 13.4 - 16.8 g/dL [facility] Interpretation and review of laboratory results Abnormal [facility] MCH (RBC) [Entitic mass] 27.8 pg 26.1 - 33.3 pg [facility] MCHC (RBC) [Mass/Vol] 31.5 g/dL Low 31.9 - 36.5 g/dL [facility] MCV (RBC) [Entitic vol] 88.3 fL 79.0 - 94.5 fL [facility] Platelet mean volume (Bld) [Entitic vol] 10.4 fL 8.7 - 12.3 fL [facility] Platelets (Bld) [#/Vol] 183 10*3/uL 146 - 337 K/uL [facility] RBC (Bld) [#/Vol] 4.35 10*6/uL Low [facility] WBC (Bld) [#/Vol] 3.66 10*3/uL Low 3.73 - 10. 10 K/uL [facility] CHEM 7 (LYTES,BUN,CREA,GLUC) on 01-18-2024 Anion gap [Moles/Vol] 11 mmol/L Normal 7-17 [facility] Comment on above: Performed By: #### C HM7, HFP, MGO, TSHQR ####[facility] (DEFAULT)[address] [place] [address] Chloride [Moles/Vol] 108 mmol/L Normal 98-108 [facility] Comment on above: Performed By: #### C HM7, HFP, MGO, TSHQR ####[facility] (DEFAULT)[address] [facility] [place] [address] CO2 [Moles/Vol] 26 mmol/L Normal 21-31 [facility] Comment on above: Performed By: #### C HM7, HFP, MGO, TSHQR ####[facility] (DEFAULT)[address] [place] [address] Creatinine [Mass/Vol] 1.00 mg/dL Normal 0.70-1.30 [facility] Comment on above: Performed By: #### C HM7, HFP, MGO, TSHQR ####[facility] [facility] (DEFAULT)[address] [place] [address] eGFR, CKD-EPI, Male > Normal >=60 [facility] Comment on above: Result Comment: Repo rted eGFR is based on the CKD-EPI 2020 equation using creatinine, age, and sex. Performed By: #### C HM7, HFP, MGO, TSHQR ####[facility] (DEFAULT)[address] [place] [address] Glucose [Mass/Vol] 89 mg/dL Normal 70-99 [facility] Comment on above: Performed By: #### C HM7, HFP, MGO, TSHQR ####[facility] (DEFAULT)[address] [place] [address] Osmolality [Osmolality] 295 mosm/kg Normal 278-305 [facility] Comment on above: Performed By: #### C HM7, HFP, MGO, TSHQR ####[facility] (DEFAULT)[address] [place] [address] Potassium [Moles/Vol] 3.9 mmol/L Normal 3.5-5.0 [facility] Comment on above: Performed By: #### C HM7, HFP, MGO, TSHQR ####[facility] (DEFAULT)[address] [place] [address] Sodium [Moles/Vol] 141 mmol/L Normal 135-145 [facility] Comment on above: Performed By: #### C HM7, HFP, MGO, TSHQR ####[facility] (DEFAULT)[address] [place] [address] Urea nitrogen [Mass/Vol] 16 mg/dL Normal 7-25 [facility] Comment on above: Performed By: #### C HM7, HFP, MGO, TSHQR ####[facility] (DEFAULT)[address] [place] [address] Urea nitrogen/Creatinine [Mass ratio] 16 mg/mg Normal [facility] Comment on above: Performed By: #### C HM7, HFP, MGO, TSHQR ####[facility] (DEFAULT)[address] [place] [address] Anion gap [Moles/Vol] 11 mmol/L 7 - 17 mmol/L [facility] Chloride [Moles/Vol] 108 mmol/L 98 - 10 8 mmol/L [facility] CO2 [Moles/Vol] 26 mmol/L 21 - 31 mmol/L [facility] Creatinine [Mass/Vol] 1.00 mg/dL 0.70 - 1.30 mg/dL [facility] eGFR, CKD-EPI, Male - PINF [facility] Comment on above: Reported eGFR is bas ed on the CKD-EPI 2020 equation using creatinine, age, and sex. Glucose [Mass/Vol] 89 mg/dL 70 - 99 mg/dL [facility] Osmolality Calc [Osmolality] 295 [facility] Potassium [Moles/Vol] 3.9 mmol/L 3.5 - 5.0 mmol/L [facility] Sodium [Moles/Vol] 141 mmol/L 135 - 145 mmol/L [facility] Urea nitrogen [Mass/Vol] 16 mg/dL 7 - 25 mg/dL [facility] Urea nitrogen/Creatinine [Mass ratio] 16 mg/mg [facility] Cardiac echo study Procedure Ordered By: Gian Carlos on 01-18-2024 Ao ASC index 1.63 cm/m2 [facility] Work Phone: Ao peak meliton 1.46 m/s [facility] Work Phone: Ao SOV index 1.56 cm/m2 [facility] Work Phone: Ao STJ index 1.25 cm/m2 [facility] Work Phone: Ao VTI 35.74 cm [facility] Work Phone: Ascending [facility] 3.39 [facility]: AV LVOT peak gradient 4 mmHg [facility] Work Phone: AV mean gradient 5 [facility] Work [facility]: AV peak gradient 9 mmHG [facility] Work Phone: AV valve area 3.09 cm2 [facility] Work Phone: AV Velocity Ratio 0.73 [facility] Work [facility]: VEGA (continuity Vmax) 3.01 cm2 [facility] Work Phone: VEGA (continuity VTI) 3.09 cm2 [facility] Work Phone: VEGA index (continuity Vmax) 1.45 m/s [facility] Work Phone: VEGA index (continuity VTI) 1.49 cm2/m2 [facility] Work Phone: Avg e' pk meliton 0.07 m/s [facility] Work Phone: Avg E/e' ratio 19.45 [facility] Work Phone: Body surface area Derived from formula 2.08 m2 [facility] Work Phone: BP EF 62 % [facility] Work Phone: DI (Vmax) 0.73 [facility] Work Phone: DI (VTI) 0.74 m/2 [facility] Work Phone: E wave decelartion time 180.38 msec [facility] Work Phone: e' lateral pk meliton 0.0789 m/s [facility] Work Phone: e' lateral pk meliton 0.08 m/s [facility] Work Phone: e' septal pk meliton 0.0653 m/s [facility] Work Phone: e' septal pk meliton 0.07 m/s [facility] Work Phone: E/A ratio 2.67 [facility] Work Phone: E/e' lateral ratio 17.62 [facility] Work Phone: E/e' septal ratio 21.29 [facility] Work Phone: EF SP 2CH 66 [facility] Work Phone: EF SP 4CH 58 [facility] Work Phone: FS 28 % 28 - 44 % [facility] Work Phone: IVC ostium 2.30 cm [facility] Work Phone: IVS 1.11 cm [facility] Work Phone: LA AREA 2CH 24.36 cm2 [facility] Work Phone: LA area 4CH 20.36 cm2 [facility] Work Phone: LA ESV BP (MOD) 64 [facility] Work Phone: LA ESV BP (MOD) index 31 mL/m2 [facility] Work Phone: LA ESV SP 2CH (MOD) 76 mL [facility] Work Phone: LA ESV SP 4CH (MOD) 53 mL [facility] Work Phone: LV EDV BP 180 mL [facility] Work Phone: LV EDV SP 2CH 190 mL [facility] Work Phone: LV EDV SP 4CH 166 mL [facility] Work Phone: LV ESV BP 69 mL [facility] Work Phone: LV ESV SP 2CH 65 mL [facility] Work Phone: [phone] LV ESV SP 4CH 70 mL [facility] Work Phone: LV mass 254.73 g [facility] Work Phone: LV Mass Index 122.5 g/m2 [facility] Work Phone: LV RWT 0.42 [facility] Work Phone: LV stroke volume BP (ml) 111 mL [facility] Work Phone: LV stroke volume index BP 53.37 mL/m2 [facility] Work Phone: LVIDD 5.53 cm [facility] Work Phone: [phone] LVIDS 3.97 cm [facility] Work Phone: [phone] LVOT area 4.15 cm2 [facility] Work Phone: LVOT diameter 2.30 cm [facility] Work Phone: LVOT peak meliton 1.06 m/s [facility] Work Phone: LVOT peak VTI 26.61 cm [facility] Work Phone: LVOT stroke volume 111 cm3 [facility] Work Phone: LVOT stroke volume index 53.13 ml/m2 [facility] Work Phone: Mr max meliton 4.21 m/s [facility] Work Phone: MR VTI 134.50 cm [facility] Work Phone: MV mean gradient 3 mmHg [facility] Work Phone: MV peak gradient 11 mmHg [facility] Work Phone: MV pk A meliton 0.52 m/s [facility] Work Phone: MV pk E meliton 1.39 m/s [facility] Work Phone: MV stenosis pressure 1/2 time 58.56 ms [facility] Work Phone: MV valve area by continuity eq 2.93 cm2 [facility] Work Phone: MV valve area p 1/2 method 3.76 cm2 [facility] Work Phone: MV VTI 37.70 cm [facility] Work Phone: MVA (continuity VTI) 2.92 cm [facility] Work Phone: [facility]SU AV VTI RATIO PRE STRESS 0.74 [facility] Work Phone: OSU ECHO LV BIPLANE SYSTOLIC VOLUME INDEX 33.17 mL/m2 [facility] Work Phone: [facility]SU ECHO LV BP DIASTOLIC VOLUME INDEX 86.54 mL/m2 [facility] Work Phone: [facility]SU ECHO MR PEAK GRADIENT 70.94 mmHg [facility] Work Phone: PW 1.16 cm [facility] Work Phone: RA area 4CH (MOD) 14.[address] [facility] Work Phone: RA vol index 4CH (MOD) 18.27 mL/m2 [facility] Work Phone: Right atrium volume 4 chamber method of disks 38 mL [facility] Work Phone: RV Area diastolic 33.20 cm2 [facility] Work Phone: RV Area systolic 21.30 cm2 [facility] Work Phone: RV basal diam 4.52 cm [facility] Work Phone: RV Fractional area change 35.8 % [facility] Work Phone: RV long diam 8.96 cm [facility] Work Phone: RV mid diam 3.70 cm [facility] Work Phone: RV S' 22.01 cm/s [facility] Work Phone: RVOT peak gradient 4 mmHg [facility] Work Phone: RVOT peak meliton 0.96 m/s [facility] Work Phone: RVOT peak VTI 20.86 cm [facility] Work Phone: Sinus 3.24 cm [facility] Work Phone: STJ 2.61 cm [facility] Work Phone: Stroke Volume 111 cm/mL [facility] Work Phone: Stroke volume index 53 [facility] Work Phone: TAPSE 2.19 cm [facility] Work Phone: [facility] Work Phone: Cardiac echo study [...] echocardiography study was performed. Imaging system used: [employer]. Indications Indications for study: shortness of breath. [facility] Radiology Study observation (narrative) [facility] HEPATIC FUNCTION PANELon Albumin [Mass/Vol] 3.5 g/dL Normal 3.5-5.0 [facility] Comment on above: Performed By: #### C HM7, HFP, MGO, TSHQR ####[facility] (DEFAULT)[address] [place] [address] ALP [Catalytic activity/Vol] 70 U/L Normal 32-126 [facility] Comment on above: Performed By: #### C HM7, HFP, MGO, TSHQR ####[facility] (DEFAULT)[address] [place] [address] ALT [Catalytic activity/Vol] 8 U/L Low 10-52 [facility] Comment on above: Performed By: #### C HM7, HFP, MGO, TSHQR ####[facility] (DEFAULT)[address] [place] [address] AST [Catalytic activity/Vol] 20 U/L Normal 10-39 [facility] Comment on above: Performed By: #### C HM7, HFP, MGO, TSHQR ####[facility] (DEFAULT)[address] [place] [address] Bilirubin [Mass/Vol] 1.7 mg/dL High <1.5 [facility] Comment on above: Performed By: #### C HM7, HFP, MGO, TSHQR ####[facility] (DEFAULT)[address] [place] [address] Bilirubin.indirect [Mass/Vol] 0.4 mg/dL High <0.3 [facility] Comment on above: Performed By: #### C HM7, HFP, MGO, TSHQR ####[facility] (DEFAULT)[address] [place] [address] Protein [Mass/Vol] 6.0 g/dL Low 6.4-8.3 [facility] Comment on above: Performed By: #### C HM7, HFP, MGO, TSHQR ####[facility] (DEFAULT)[address] [place] [address] Albumin [Mass/Vol] 3.5 g/dL 3.5 - 5.0 g/dL [facility] ALP [Catalytic activity/Vol] 70 U/L 32 - 126 U/L [facility] ALT [Catalytic activity/Vol] 8 U/L Low 10 - 52 U/L [facility] AST [Catalytic activity/Vol] 20 U/L 10 - 39 U/L [facility] Bilirubin [Mass/Vol] 1.7 mg/dL High NINF - 1.5 mg/dL [facility] Bilirubin.direct [Mass/Vol] 0.4 mg/dL High NINF - 0.3 mg/dL [facility] Protein [Mass/Vol] 6.0 g/dL Low 6.4 - 8.3 g/dL [facility] MAGNESIUMon 01-18-2024 Magnesium [Mass/Vol] 1.5 mg/dL Low 1.6-2.6 [facility] Comment on above: Performed By: #### C HM7, HFP, MGO, TSHQR ####[facility] (DEFAULT)[address] [facility] [place] [address] Magnesium [Mass/Vol] 1.5 mg/dL Low 1.6 - 2 .6 mg/dL [facility] No Panel Informationon 01-18 Interpretation and review of laboratory results Abnormal [facility] PT,INR,PTTon 01-18-2024 aPTT Coag (Bld) [Time] 30.0 s Normal 24.0-34.3 [facility] Comment on above: Performed By: #### P TPTT ####[facility] (DEFAULT)[address] [facility] [place] [address] INR Coag (PPP) [Relative time] 1.1 {INR} Normal 0.9-1.1 [facility] Comment on above: Performed By: #### P TPTT ####[facility] (DEFAULT)[address] [facility] [place] [address] PT Coag (PPP) [Time] 14.5 s High 11.9-14.2 [facility] Comment on above: Performed By: #### P TPTT ####[facility] (DEFAULT)[address] [place] [address], [place] [address] aPTT Coag (PPP) [Time] 30.0 s [facility] INR Coag (Bld) [Relative time] 1.1 {INR} 0.9 - 1.1 [facility] Interpretation and review of laboratory results Abnormal [facility] PT Coag (PPP) [Time] 14.5 s High [facility] TSH W/FT4 REFLEXon Interpretation and review of laboratory results Normal [facility] TSH Qn 2.660 m[IU]/L [facility] TSH 2.660 uIU/mL Normal 0.550-4.780 [facility] Comment on above: Performed By: #### C HM7, HFP, MGO, TSHQR ####[facility] (DEFAULT)[address] [place] [address] AFP TUMOR MARKERon AFP Tumor Marker <2.2 Normal <8.[address] [facility] Comment on above: Result Comment: This test was performed on the Dizmo IM Immunoassay platform by [employer] which is a two-site sandwich chemiluminescent immunoassay. It is important to note that assays using different manufacturers and/or methods may not be comparable. Performed By: #### A FPTMR ####[facility] (DEFAULT)[address] [place] [address] DARYL AURIS SCREEN BY PCRO rdered By: Mynor Alejandro on 01-17-2024 Daryl auris Screen by PCR Not detected Not Detected [facility] Interpretation and review of laboratory results Normal [facility] This test was perfor med using a real-time PCR assay. This test was developed, and its performance characteristics determined by [facility]. It has not been cleared or approved by the FDA. The laboratory is regulated under CLIA as qualified to perform high-complexity testing. This test is used for clinical purposes. It should not be regarded as investigational or for research. [facility] CBC,PLATELETSon 01-17-2024 Hematocrit (Bld) [Volume fraction] 37.2 % Low 39.6-48.8 [facility] Comment on above: Performed By: #### [facility] ####[facility] (DEFAULT)[address] [place] [address] Hemoglobin (Bld) [Mass/Vol] 12.0 g/dL Low 13.4-16.8 [facility] Comment on above: Performed By: #### H EMO ####[facility] (DEFAULT)[address] [place] [address] MCV (RBC) [Entitic vol] 86.5 fL Normal 79.0-94.5 [facility] Comment on above: Performed By: #### H EMOGC ####[facility] (DEFAULT)[address] [place] [address] Mean Cell Hgb 27.9 pg Normal 26.1-33.3 [facility] Comment on above: Performed By: #### H EMOGC ####[facility] (DEFAULT)[address] [facility] [place] [address] Mean Cell Hgb Conc 32.3 g/dL Normal 31.9-36.5 [facility] Comment on above: Performed By: #### H EMOGC ####[facility] (DEFAULT)[address] [facility] [place] [address] Platelet mean volume (Bld) [Entitic vol] 10.5 fL Normal 8.7-12.3 [facility] Comment on above: Performed By: #### H EMOGC ####[facility] (DEFAULT)[address] [place] [address] Platelets (Bld) [#/Vol] 159 10*3/uL Normal 146-337 [facility] Comment on above: Performed By: #### H EMOGC ####[facility] (DEFAULT)[address] [place] [address] RBC (Bld) [#/Vol] 4.30 10*6/uL Low 4.38-5.83 [facility] Comment on above: Performed By: #### H EMOGC ####[facility] (DEFAULT)[address] [facility] [place] [address] RBC Distribution 14.0 % Normal 10.9-14.[address] [facility] Comment on above: Performed By: #### H EMOGC ####[facility] (DEFAULT)[address] [place] [address] WBC (Bld) [#/Vol] 3.69 10*3/uL Low 3.73-10.10 [facility] Comment on above: Performed By: #### [facility] ####[facility] (DEFAULT)[address] [place] [address] Erythrocyte distribution width (RBC) [Ratio] 14.0 % 10.9 - 14.3 % [facility] Hematocrit (Bld) [Volume fraction] 37.2 % Low 39.6 - 48.8 % [facility] Hemoglobin (Bld) [Mass/Vol] 12.0 g/dL Low 13.4 - 16.8 g/dL [facility] Interpretation and review of laboratory results Abnormal [facility] MCH (RBC) [Entitic mass] 27.9 pg 26.1 - 33.3 pg [facility] MCHC (RBC) [Mass/Vol] 32.3 g/dL 31.9 - 36.5 g/dL [facility] MCV (RBC) [Entitic vol] 86.5 fL 79.0 - 94.5 fL [facility] Platelet mean volume (Bld) [Entitic vol] 10.5 fL 8.7 - 12.3 fL [facility] Platelets (Bld) [#/Vol] 159 10*3/uL 146 - 337 K/uL [facility] RBC (Bld) [#/Vol] 4.30 10*6/uL Low [facility] WBC (Bld) [#/Vol] 3.69 10*3/uL Low 3.73 - 10. 10 K/uL [facility] CHEM 7 (LYTES,BUN,CREA,GLUC) on 01-17-2024 Anion gap [Moles/Vol] 13 mmol/L Normal 7-17 [facility] Comment on above: Performed By: #### C HM7, HFP, MGO ####[facility] (DEFAULT)[address] [place] [address] Chloride [Moles/Vol] 109 mmol/L High 98-108 [facility] Comment on above: Performed By: #### C TAVO MEDLEY, MGO ####[facility] (DEFAULT)[address] [facility] [place] [address] CO2 [Moles/Vol] 21 mmol/L Normal 21-31 [facility] Comment on above: Performed By: #### C TAVO MEDLEY, MGO ####[facility] (DEFAULT)[address] [facility] [place] [address] Creatinine [Mass/Vol] 1.04 mg/dL Normal 0.70-1.30 [facility] Comment on above: Performed By: #### Chinedu MEDLEY, TAVO, MGO ####[facility] (DEFAULT)[address] [facility] [place] [address] GFR/1.73 sq M.predicted among non-blacks MDRD (S/P/Bld) [Vol rate/Area] 86 mL/min/{1.73_m2} Normal >=60 [facility] Comment on above: Result Comment: Repo rted eGFR is based on the CKD-EPI 2020 equation using creatinine, age, and sex. Performed By: #### C JASMYNE, TAVO, MGO ####[facility] (DEFAULT)[address] [facility] [place] [address] Glucose [Mass/Vol] 82 mg/dL Normal 70-99 [facility] Comment on above: Performed By: #### Chinedu MEDLEY, HFP, MGO ####[facility] (DEFAULT)[address] [facility] [place] [address] Osmolality [Osmolality] 292 mosm/kg Normal 278-305 [facility] Comment on above: Performed By: #### C HMJessica, HFP, MGO ####[facility] (DEFAULT)[address] [facility] [place] [address] Potassium [Moles/Vol] 4.4 mmol/L Normal 3.5-5.0 [facility] Comment on above: Performed By: #### C HM7, HFP, MGO ####[facility] (DEFAULT)[address] [facility] [place] [address] Sodium [Moles/Vol] 139 mmol/L Normal 135-145 [facility] Comment on above: Performed By: #### C HM7, HFP, MGO ####[facility] (DEFAULT)[address] [facility] [place] [address] Urea nitrogen [Mass/Vol] 17 mg/dL Normal 7-25 [facility] Comment on above: Performed By: #### C HM7, HFP, MGO ####[facility] (DEFAULT)[address] [facility] [place] [address] Urea nitrogen/Creatinine [Mass ratio] 16 mg/mg Normal [facility] Comment on above: Performed By: #### C HM7, HFP, MGO ####[facility] (DEFAULT)[address] [facility] [place] [address] Anion gap [Moles/Vol] 13 mmol/L 7 - 17 mmol/L [facility] Chloride [Moles/Vol] 109 mmol/L High 98 - 10 8 mmol/L [facility] CO2 [Moles/Vol] 21 mmol/L 21 - 31 mmol/L [facility] Creatinine [Mass/Vol] 1.04 mg/dL 0.70 - 1.30 mg/dL [facility] eGFR, CKD-EPI, Male 86 - PINF [facility] Comment on above: Reported eGFR is bas ed on the CKD-EPI 2020 equation using creatinine, age, and sex. Glucose [Mass/Vol] 82 mg/dL 70 - 99 mg/dL [facility] Osmolality Calc [Osmolality] 292 [facility] Potassium [Moles/Vol] 4.4 mmol/L 3.5 - 5.0 mmol/L [facility] Sodium [Moles/Vol] 139 mmol/L 135 - 145 mmol/L [facility] Urea nitrogen [Mass/Vol] 17 mg/dL 7 - 25 mg/dL [facility] Urea nitrogen/Creatinine [Mass ratio] 16 mg/mg [facility] CT ABDOMEN/PELVIS WITHOUT CO NTRASTon 01-17-2024 CT ABDOMEN/PELVIS WITHOUT CONTRAST Normal [facility] CT Abdomen and Pelvis WO [...] unremarkable. Kidneys: Severe atrophy of the bilateral [place] kidney is without hydronephrosis. Right lower quadrant [...] unremarkable. Kidneys: Severe atrophy of the bilateral [place] kidney is without hydronephrosis. Right lower quadrant [...] the middle lobe. Trace left pleural effusion. [facility] Radiology Study observation (narrative) [facility] HEPATIC FUNCTION PANELon Albumin [Mass/Vol] 3.5 g/dL Normal 3.5-5.0 [facility] Comment on above: Performed By: #### C HM7, HFP, MGO ####[facility] (DEFAULT)[address] [place] [address] ALP [Catalytic activity/Vol] 73 U/L Normal 32-126 [facility] Comment on above: Performed By: #### C HM7, HFP, MGO ####[facility] (DEFAULT)[address] [place] [address] ALT [Catalytic activity/Vol] 7 U/L Low 10-52 [facility] Comment on above: Performed By: #### C HM7, HFP, MGO ####[facility] (DEFAULT)[address] [place] [address] AST [Catalytic activity/Vol] 25 U/L Normal 10-39 [facility] Comment on above: Performed By: #### C HM7, HFP, MGO ####[facility] (DEFAULT)[address] [place] [address] Bilirubin [Mass/Vol] 1.8 mg/dL High <1.5 [facility] Comment on above: Performed By: #### C HMJessica, HFP, MGO ####[facility] (DEFAULT)[address] [place] [address] Bilirubin.indirect [Mass/Vol] 0.3 mg/dL High <0.3 [facility] Comment on above: Performed By: #### Chinedu HMJessica, HFP, MGO ####[facility] (DEFAULT)[address] [place] [address] Protein [Mass/Vol] 6.0 g/dL Low 6.4-8.3 [facility] Comment on above: Performed By: #### Chinedu HM7, HFP, MGO ####[facility] (DEFAULT)[address] [place] [address] Albumin [Mass/Vol] 3.5 g/dL 3.5 - 5.0 g/dL [facility] ALP [Catalytic activity/Vol] 73 U/L 32 - 126 U/L [facility] ALT [Catalytic activity/Vol] 7 U/L Low 10 - 52 U/L [facility] AST [Catalytic activity/Vol] 25 U/L 10 - 39 U/L [facility] Bilirubin [Mass/Vol] 1.8 mg/dL High NINF - 1.5 mg/dL [facility] Bilirubin.direct [Mass/Vol] 0.3 mg/dL High NINF - 0.3 mg/dL [facility] Protein [Mass/Vol] 6.0 g/dL Low 6.4 - 8.3 g/dL [facility] HISTOPLASMA AND BLASTOMYCES ANTIGEN, ENZYME IMMUNOASSAY, SERMon 01-17-2024 Histoplasma/Blastomy antonia Ag Result Not detected Normal Not Detected [facility] Comment on above: Result Comment: No a ntigen from Histoplasma or Blastomyces detected. Falsenegative results may occur depending on extent of disease,and/or site of infection. Repeat testing on a new specimenif clinically indicated. Performed By: #### H CORAL ####[facility] (DEFAULT)[address] [place] [address] Histoplasma/Blastomy antonia Ag Value Not detected Normal [facility] Comment on above: Result Comment: ---- ADDITIONAL INFORMATION This test was developed and its performance characteristicsdetermined by [facility] in a manner consistent with CLIArequirements. This test has not been cleared or approved bythe U.S. Food and Drug Administration.Test Performed by:[place] [id number] Director: Rosendo Bose M.D. Ph.D.; CLIA# [id number] Performed By: #### H ILYAG ####[facility] (DEFAULT)[address] [place] [address] MAGNESIUMon 01-17-2024 Magnesium [Mass/Vol] 1.7 mg/dL Normal 1.6-2.6 [facility] Comment on above: Performed By: #### C HM7, HFP, MGO ####[facility] (DEFAULT)[address] [place] [address] Interpretation and review of laboratory results Normal [facility] Magnesium [Mass/Vol] 1.7 mg/dL 1.6 - 2 .6 mg/dL [facility] No Panel Informationon 01-17 Interpretation and review of laboratory results Abnormal [facility] PT,INR,PTTon 01-17-2024 aPTT Coag (PPP) [Time] 29.9 s [facility] INR Coag (Bld) [Relative time] 1.1 {INR} 0.9 - 1.1 [facility] Interpretation and review of laboratory results Abnormal [facility] PT Coag (PPP) [Time] 14.5 s High [facility] aPTT Coag (Bld) [Time] 29.9 s Normal 24.0-34.3 [facility] Comment on above: Performed By: #### P TPTT ####[facility] (DEFAULT)[address] [place] [address] INR Coag (PPP) [Relative time] 1.1 {INR} Normal 0.9-1.1 [facility] Comment on above: Performed By: #### P TPTT ####[facility] (DEFAULT)[address] [place] [address] PT Coag (PPP) [Time] 14.5 s High 11.9-14.2 [facility] Comment on above: Performed By: #### P TPTT ####[facility] (DEFAULT)[address] [place] [address] B-TYPE NATRIURETIC PEPTIDE ( BRAIN)on 01-16-2024 Interpretation and review of laboratory results Abnormal [facility] Natriuretic peptide B (Bld) [Mass/Vol] 212 pg/mL High 0 - 100 pg/mL [facility] Natriuretic peptide B (Bld) [Mass/Vol] 212 pg/mL High 0-100 [facility] Comment on above: Performed By: #### B BOILER ASSISTANT OPERATOR ####[facility] (DEFAULT)[address] [place] [address] CALCIUMon 01-16-2024 Calcium [Mass/Vol] 8.5 mg/dL Low 8.6-10.5 [facility] Comment on above: Performed By: #### C A, CHM7, IPB, MGO, HFP ####[facility] (DEFAULT)[address] [facility] [place] [address] Calcium [Mass/Vol] 8.5 mg/dL Low 8.6 - 10. 5 mg/dL [facility] DARYL AURIS SCREEN BY PCRo n 01-16-2024 Daryl auris Screen by PCR Not detected Normal Not Detected [facility] Comment on above: Order Comment: This test was performed using a real-time PCR assay. This test was developed, and its performance characteristics determined by [facility] at [facility]. It has not been cleared or approved by the FDA. The laboratory is regulated under CLIA as qualified to perform high-complexity testing. This test is used for clinical purposes. It should not be regarded as investigational or for research. Performed By: #### C ANDIDA AURIS SCREEN BY PCR ####[facility] (DEFAULT)[address] [facility] [place] [address] CBC AND ELECTRONIC DIFFon Abs Baso Auto < Normal 0.00-0.09 [facility] Comment on above: Performed By: #### L [id number] ####[facility] (DEFAULT)[address] [facility] [place] [address] Basophils/100 WBC (Bld) 0.6 % Normal [facility] Comment on above: Performed By: #### L [id number] ####[facility] (DEFAULT)[address] [facility] [place] [address] DIFF STATUS Electronic Differential Normal [facility] Comment on above: Performed By: #### L [id number] ####[facility] (DEFAULT)[address] [facility] [place] [address] Eosinophils (Bld) [#/Vol] 0.09 10*3/uL Normal 0.00-0.48 [facility] Comment on above: Performed By: #### L [id number] ####[facility] (DEFAULT)[address] [facility] [place] [address] Eosinophils/100 WBC (Bld) 2.5 % Normal [facility] Comment on above: Performed By: #### L [id number] ####[facility] (DEFAULT)[address] [facility] [place] [address] Hematocrit (Bld) [Volume fraction] 37.4 % Low 39.6-48.8 [facility] Comment on above: Performed By: #### L [id number] ####[facility] (DEFAULT)[address] [facility] [place] [address] Hemoglobin (Bld) [Mass/Vol] 12.1 g/dL Low 13.4-16.8 [facility] Comment on above: Performed By: #### L [id number] ####[facility] (DEFAULT)[address] [facility] [place] [address] Immature Grans % 0.3 % Normal [facility] Comment on above: Performed By: #### L [id number] ####[facility] (DEFAULT)[address] [place] [address], [place] [address] Immature Grans Absolute < Normal <=0.07 [facility] Comment on above: Performed By: #### L [id number] ####[facility] (DEFAULT)[address] [facility] [place] [address] Lymphocytes (Bld) [#/Vol] 1.16 10*3/uL Normal 0.83-3.57 [facility] Comment on above: Performed By: #### L [id number] ####[facility] (DEFAULT)[address] [facility] [place] [address] Lymphocytes/100 WBC (Bld) 32.0 % Normal [facility] Comment on above: Performed By: #### L [id number] ####[facility] (DEFAULT)[address] [facility] [place] [address] MCV (RBC) [Entitic vol] 87.8 fL Normal 79.0-94.5 [facility] Comment on above: Performed By: #### L [id number] ####[facility] (DEFAULT)[address] [place] [address] Mean Cell Hgb 28.4 pg Normal 26.1-33.3 [facility] Comment on above: Performed By: #### L AB980 ####[facility] (DEFAULT)[address] [facility] [place] [address] Mean Cell Hgb Conc 32.4 g/dL Normal 31.9-36.5 [facility] Comment on above: Performed By: #### L [id number] ####[facility] (DEFAULT)[address] [facility] [place] [address] Monocytes (Bld) [#/Vol] 0.43 10*3/uL Normal 0.24-0.93 [facility] Comment on above: Performed By: #### L AB980 ####[facility] (DEFAULT)[address] [facility] [place] [address] Monocytes/100 WBC (Bld) 11.9 % Normal [facility] Comment on above: Performed By: #### L [id number] ####[facility] (DEFAULT)[address] [place] [address] Nucleated RBC 0.0 /100 WBC Normal <=0.2 [facility] Comment on above: Performed By: #### L [id number] ####[facility] (DEFAULT)[address] [facility] [place] [address] Platelet mean volume (Bld) [Entitic vol] 10.1 fL Normal 8.7-12.3 [facility] Comment on above: Performed By: #### L [id number] ####[facility] (DEFAULT)[address] [place] [address] Platelets (Bld) [#/Vol] 155 10*3/uL Normal 146-337 [facility] Comment on above: Performed By: #### L [id number] ####[facility] (DEFAULT)[address] [facility] [place] [address] RBC (Bld) [#/Vol] 4.26 10*6/uL Low 4.38-5.83 [facility] Comment on above: Performed By: #### L [id number] ####[facility] (DEFAULT)[address] [facility] [place] [address] RBC Distribution 14.0 % Normal 10.9-14.[address] [facility] Comment on above: Performed By: #### L [id number] ####[facility] (DEFAULT)[address] [facility] [place] [address] Segs + Bands Auto 52.7 % Normal [facility] Comment on above: Performed By: #### L [id number] ####[facility] (DEFAULT)[address] [facility] [place] [address] Segs + Bands,Absolute Auto 1.91 K/uL Normal 1.57-6.19 [facility] Comment on above: Performed By: #### L [id number] ####[facility] (DEFAULT)[address] [facility] [place] [address] WBC (Bld) [#/Vol] 3.62 10*3/uL Low 3.73-10.10 [facility] Comment on above: Performed By: #### L [id number] ####[facility] (DEFAULT)[address] [facility] [place] [address] Basophils (Bld) [#/Vol] K/uL 0.00 - 0.09 K/uL [facility] Basophils/100 WBC (Bld) 0.6 % [facility] Differential cell count method Nom (Bld) Electronic Differential [facility] Eosinophils (Bld) [#/Vol] 0.09 10*3/uL 0.00 - 0.48 K/uL [facility] Eosinophils/100 WBC (Bld) 2.5 % [facility] Erythrocyte distribution width (RBC) [Ratio] 14.0 % 10.9 - 14.3 % [facility] Hematocrit (Bld) [Volume fraction] 37.4 % Low 39.6 - 48.8 % [facility] Hemoglobin (Bld) [Mass/Vol] 12.1 g/dL Low 13.4 - 16.8 g/dL [facility] Immature granulocytes (Bld) [#/Vol] K/uL NINF - 0.07 K/uL [facility] Immature granulocytes/100 WBC (Bld) 0.3 % [facility] Interpretation and review of laboratory results Abnormal [facility] Lymphocytes (Bld) [#/Vol] 1.16 10*3/uL 0.83 - 3.57 K/uL [facility] Lymphocytes/100 WBC (Bld) 32.0 % [facility] MCH (RBC) [Entitic mass] 28.4 pg 26.1 - 33.3 pg [facility] MCHC (RBC) [Mass/Vol] 32.4 g/dL 31.9 - 36.5 g/dL [facility] MCV (RBC) [Entitic vol] 87.8 fL 79.0 - 94.5 fL [facility] Monocytes (Bld) [#/Vol] 0.43 10*3/uL 0.24 - 0.93 K/uL [facility] Monocytes/100 WBC (Bld) 11.9 % [facility] Neutrophils (Bld) [#/Vol] 1.91 10*3/uL 1.57 - 6.19 K/uL [facility] Nucleated RBC/100 WBC (Bld) [Ratio] 0.0 % [facility] Platelet mean volume (Bld) [Entitic vol] 10.1 fL 8.7 - 12.3 fL [facility] Platelets (Bld) [#/Vol] 155 10*3/uL 146 - 337 K/uL [facility] RBC (Bld) [#/Vol] 4.26 10*6/uL Low [facility] Segmented neutrophils/100 WBC (Bld) 52.7 % [facility] WBC (Bld) [#/Vol] 3.62 10*3/uL Low 3.73 - 10. 10 K/uL [facility] CHEM 7 (LYTES,BUN,CREA,GLUC) on 01-16-2024 Anion gap [Moles/Vol] 11 mmol/L Normal 7-17 [facility] Comment on above: Performed By: #### C A, CHM7, IPB, MGO, HFP ####[facility] (DEFAULT)[address] [place] [address] Chloride [Moles/Vol] 108 mmol/L Normal 98-108 [facility] Comment on above: Performed By: #### C A, CHM7, IPB, MGO, HFP ####[facility] (DEFAULT)[address] [place] [address] CO2 [Moles/Vol] 24 mmol/L Normal 21-31 [facility] Comment on above: Performed By: #### C A, CHM7, IPB, MGO, HFP ####[facility] (DEFAULT)[address] [place] [address] Creatinine [Mass/Vol] 1.04 mg/dL Normal 0.70-1.30 [facility] Comment on above: Performed By: #### C A, CHM7, IPB, MGO, HFP ####[facility] (DEFAULT)[address] [place] [address] GFR/1.73 sq M.predicted among non-blacks MDRD (S/P/Bld) [Vol rate/Area] 86 mL/min/{1.73_m2} Normal >=60 [facility] Comment on above: Result Comment: Repo rted eGFR is based on the CKD-EPI 2020 equation using creatinine, age, and sex. Performed By: #### C A, CHM7, IPB, MGO, HFP ####[facility] (DEFAULT)[address] [place] [address] Glucose [Mass/Vol] 95 mg/dL Normal 70-99 [facility] Comment on above: Performed By: #### C Tray, CHM7, IPB, MGO, HFP ####[facility] (DEFAULT)[address] [place] [address] Osmolality [Osmolality] 293 mosm/kg Normal 278-305 [facility] Comment on above: Performed By: #### C Tray, CHM7, IPB, MGO, HFP ####[facility] (DEFAULT)[address] [place] [address] Potassium [Moles/Vol] 4.0 mmol/L Normal 3.5-5.0 [facility] Comment on above: Performed By: #### C Tray, CHM7, IPB, MGO, HFP ####[facility] (DEFAULT)[address] [place] [address] Sodium [Moles/Vol] 139 mmol/L Normal 135-145 [facility] Comment on above: Performed By: #### C Tray, CHM7, IPB, MGO, HFP ####[facility] (DEFAULT)[address] [place] [address] Urea nitrogen [Mass/Vol] 19 mg/dL Normal 7-25 [facility] Comment on above: Performed By: #### C Tray, CHM7, IPB, MGO, HFP ####[facility] (DEFAULT)[address] [place] [address] Urea nitrogen/Creatinine [Mass ratio] 18 mg/mg Normal [facility] Comment on above: Performed By: #### C A, CHM7, IPB, MGO, HFP ####[facility] (DEFAULT)[address] [place] [address] Anion gap [Moles/Vol] 11 mmol/L 7 - 17 mmol/L [facility] Chloride [Moles/Vol] 108 mmol/L 98 - 10 8 mmol/L [facility] CO2 [Moles/Vol] 24 mmol/L 21 - 31 mmol/L [facility] Creatinine [Mass/Vol] 1.04 mg/dL 0.70 - 1.30 mg/dL [facility] eGFR, CKD-EPI, Male 86 - PINF [facility] Comment on above: Reported eGFR is bas ed on the CKD-EPI 2020 equation using creatinine, age, and sex. Glucose [Mass/Vol] 95 mg/dL 70 - 99 mg/dL [facility] Osmolality Calc [Osmolality] 293 [facility] Potassium [Moles/Vol] 4.0 mmol/L 3.5 - 5.0 mmol/L [facility] Sodium [Moles/Vol] 139 mmol/L 135 - 145 mmol/L [facility] Urea nitrogen [Mass/Vol] 19 mg/dL 7 - 25 mg/dL [facility] Urea nitrogen/Creatinine [Mass ratio] 18 mg/mg [facility] D-DIMER,QUANTITATIVEon 01-16 D-Dimer, High Sensitivity 0.67 mcg/mL FEU High <0.50 [facility] Comment on above: Result Comment: The D-Dimer assay is intended for use in conjuction with a clinical pretest probability (PTP) assessment model to exclude pulmonary embolism (PE) and as an aid in the diagnosis of Deep Vein Thrombosis (DVT) in outpatients suspected of PE or DVT. For the assay in use at [facility] ([facility]), a cutoff of <0.50 mcg/mL has a Negative Predictive Value of 99.7% for exclusion of DVT in low and moderate PTP patients. Performed By: #### P TPTT, HSDDI ####[facility] (DEFAULT)[address] [place] [address] D-DIMER,QUANTITATIVEOrdered By: Shaji Kelly on 01-16-2024 Fibrin D-dimer FEU (PPP) [Mass/Vol] 0.67 High NINF [facility] Comment on above: The D-Dimer assay is intended for use in conjuction with a clinical pretest probability (PTP) assessment model to exclude pulmonary embolism (PE) and as an aid in the diagnosis of Deep Vein Thrombosis (DVT) in outpatients suspected of PE or DVT. For the assay in use at [facility] ([facility]), a cutoff of <0.50 mcg/mL has a Negative Predictive Value of 99.7% for exclusion of DVT in low and moderate PTP patients. Interpretation and review of laboratory results Abnormal [facility] HEPATIC FUNCTION PANELon Albumin [Mass/Vol] 3.7 g/dL Normal 3.5-5.0 [facility] Comment on above: Performed By: #### C A, CHM7, IPB, MGO, HFP ####[facility] (DEFAULT)[address] [place] [address] ALP [Catalytic activity/Vol] 70 U/L Normal 32-126 [facility] Comment on above: Performed By: #### C A, CHM7, IPB, MGO, HFP ####[facility] (DEFAULT)[address] [place] [address] ALT [Catalytic activity/Vol] 8 U/L Low 10-52 [facility] Comment on above: Performed By: #### C A, CHM7, IPB, MGO, HFP ####[facility] (DEFAULT)[address] [place] [address] AST [Catalytic activity/Vol] 21 U/L Normal 10-39 [facility] Comment on above: Performed By: #### C A, CHM7, IPB, MGO, HFP ####[facility] (DEFAULT)[address] [facility] [place] [address] Bilirubin [Mass/Vol] 1.9 mg/dL High <1.5 [facility] Comment on above: Performed By: #### C A, CHM7, IPB, MGO, HFP ####[facility] (DEFAULT)[address] [facility] [place] [address] Bilirubin.indirect [Mass/Vol] 0.4 mg/dL High <0.3 [facility] Comment on above: Performed By: #### NATHANIEL Willis, CASTROB, MGO, HFP ####[facility] (DEFAULT)[address] [facility] [place] [address] Protein [Mass/Vol] 6.1 g/dL Low 6.4-8.3 [facility] Comment on above: Performed By: #### NATHANIEL Willis, IPB, MGO, HFP ####[facility] (DEFAULT)[address] [facility] [place] [address] Albumin [Mass/Vol] 3.7 g/dL 3.5 - 5.0 g/dL [facility] ALP [Catalytic activity/Vol] 70 U/L 32 - 126 U/L [facility] ALT [Catalytic activity/Vol] 8 U/L Low 10 - 52 U/L [facility] AST [Catalytic activity/Vol] 21 U/L 10 - 39 U/L [facility] Bilirubin [Mass/Vol] 1.9 mg/dL High NINF - 1.5 mg/dL [facility] Bilirubin.direct [Mass/Vol] 0.4 mg/dL High NINF - 0.3 mg/dL [facility] Protein [Mass/Vol] 6.1 g/dL Low 6.4 - 8.3 g/dL [facility] MAGNESIUMon 01-16-2024 Magnesium [Mass/Vol] 1.7 mg/dL Normal 1.6-2.6 [facility] Comment on above: Performed By: #### NATHANIEL Willis, CASTROB, MGO, HFP ####[facility] (DEFAULT)[address] [facility] [place] [address] Magnesium [Mass/Vol] 1.7 mg/dL 1.6 - 2 .6 mg/dL [facility] No Panel Informationon 01-16 Interpretation and review of laboratory results Abnormal [facility] Interpretation and review of laboratory results Normal [facility] PHOSPHATE, INORGANICon 01-16 Phosphorous 4.1 mg/dL Normal 2.2-4.6 [facility] Comment on above: Performed By: #### C A, CHM7, IPB, MGO, HFP ####[facility] (DEFAULT)[address] [facility] [place] [address] Phosphate [Mass/Vol] 4.1 mg/dL 2.2 - 4 .6 mg/dL [facility] PT,INR,PTTon 01-16-2024 aPTT Coag (Bld) [Time] 29.6 s Normal 24.0-34.3 [facility] Comment on above: Performed By: #### P TPTT, HSDDI ####[facility] (DEFAULT)[address] [facility] [place] [address] INR Coag (PPP) [Relative time] 1.2 {INR} High 0.9-1.1 [facility] Comment on above: Performed By: #### P TPTT, HSDDI ####[facility] (DEFAULT)[address] [facility] [place] [address] PT Coag (PPP) [Time] 14.9 s High 11.9-14.2 [facility] Comment on above: Performed By: #### P TPTT, HSDDI ####[facility] (DEFAULT)[address] [facility] [place] [address] aPTT Coag (PPP) [Time] 29.6 s [facility] INR Coag (Bld) [Relative time] 1.2 {INR} High 0.9 - 1.1 [facility] Interpretation and review of laboratory results Abnormal [facility] PT Coag (PPP) [Time] 14.9 s High [facility] TACROLIMUS LEVEL, TROUGH (NE E DRUG LEVEL)Ordered By: Jimy Castillo on 01-16-2024 Interpretation and review of laboratory results Normal [facility] Tacrolimus (Bld) [Mass/Vol] 5.7 ng/mL Bone Marrow Transplant: 4.0-12.0, Therapeutic: 5.0-15.0 [facility] Method performed is a chemiluminescent microparticle immunoasssay on the [employer] i2000. The range is based on experience at [facility] and users should be aware that target concentrations vary widely depending on concomitant therapy, time post-transplant, and desired degree of immunosuppression. [facility] TACROLIMUS LEVEL, TROUGH (NE E DRUG LEVEL)on 01-16-2024 Tacrolimus, Trough 5.7 ng/mL Normal [facility] [place] [facility] Transplant: 4.0-12.0, Therapeutic: 5.0-15.0 [facility] Comment on above: Order Comment: Pleas e draw at specified interval PRIOR to dose. Do not hold dose to wait for level. Specimens batched twice per day, (M-) and once per day weekendsMethod performed is a chemiluminescent microparticle immunoasssay on the [employer] i2000.The range is based on experience at [facility] and users should be aware that target concentrations vary widely depending on concomitant therapy, time post-transplant, and desired degree of immunosuppression. Performed By: #### T ACRO ####[facility] (DEFAULT)[address] [place] [address] US ABDOMEN LIVER DOPPLERon 0 01-16-2024 US ABDOMEN LIVER DOPPLER Normal [facility] US.doppler Abdominal vessels on 01-16-2024 [...] pleural effusion. Trace right upper quadrant ascites. [facility] Radiology Study observation (narrative) [facility] US.doppler Abdominal vessels Ordered By: Iona Duran on 01-16-2024 [facility] Work Phone: XR CHEST PA AND LATERAL 2 EWSon 01-16-2024 XR CHEST PA AND LATERAL 2 VIEWS Normal [facility] XR Chest PA and Lateralon [...] Normal IMPRESSION IMPRESSION: Moderate right pleural effusion. [facility] Radiology Study observation (narrative) [facility] XR Chest PA and LateralOrder ed By: Daisha Patterson on 01-16-2024 [facility] Work Phone: ALL CBC WITH AUTO DIFFon BASOPHILS ABSOLUTE AUTO 0.0 [facility] Basophils/100 WBC (Bld) 0.5 % 0.2 - 2.0 % [facility] Eosinophils/100 WBC (Bld) 2.8 % 0.9 - 7.0 % [facility] Erythrocyte distribution width (RBC) [Ratio] 13.8 % 11.0 - 15.0 % [facility] Hematocrit (Bld) [Volume fraction] 43.7 % 42.0 - 54.0 % [facility] Hemoglobin (Bld) [Mass/Vol] 14.0 g/dL 14.0 - 18.0 g/dL [facility] IMMATURE GRANULOCYTES ABS AUTO 0.01 [facility] Immature granulocytes/100 WBC (Bld) 0.3 % 0.0 - 0.5 % [facility] LYMPHOCYTES ABSOLUTE AUTO 1.5 [facility] Lymphocytes/100 WBC (Bld) 37.5 % 20.5 - 60.0 % [facility] MCH (RBC) [Entitic mass] 28.4 pg 25.9 - 34.0 pg [facility] MCHC (RBC) [Mass/Vol] 32.0 g/dL 29.9 - 35.2 g/dL [facility] MCV (RBC) [Entitic vol] 88.6 fL 80.0 - 94.0 fL [facility] MONOCYTES ABSOLUTE AUTO 0.5 [facility] Monocytes/100 WBC (Bld) 11.9 % 1.7 - 12.0 % [facility] NEUTROPHILS ABSOLUTE AUTO 1.9 [facility] Neutrophils/100 WBC (Bld) 47.0 % 43.0 - 75.0 % [facility] Platelet mean volume (Bld) [Entitic vol] 10.3 fL 9.5 - 13.5 fL [facility] TBH EO # 0.1 [facility]H PLT 180 [facility] TB RBC 4.93 [facility]H WBC 4.0 [facility] ALL CBC WITH AUTO DIFFon BASOPHILS ABSOLUTE AUTO 0.0 [facility] Basophils/100 WBC (Bld) 0.5 % 0.2 - 2.0 % [facility] Eosinophils/100 WBC (Bld) 2.6 % 0.9 - 7.0 % [facility] Erythrocyte distribution width (RBC) [Ratio] 13.5 % 11.0 - 15.0 % [facility] Hematocrit (Bld) [Volume fraction] 43.8 % 42.0 - 54.0 % [facility] Hemoglobin (Bld) [Mass/Vol] 14.0 g/dL 14.0 - 18.0 g/dL [facility] IMMATURE GRANULOCYTES ABS AUTO 0.00 [facility] Immature granulocytes/100 WBC (Bld) 0.0 % 0.0 - 0.5 % [facility] Interpretation and review of laboratory results Abnormal [facility] LYMPHOCYTES ABSOLUTE AUTO 1.8 [facility] Lymphocytes/100 WBC (Bld) 45.2 % 20.5 - 60.0 % [facility] MCH (RBC) [Entitic mass] 27.9 pg 25.9 - 34.0 pg [facility] MCHC (RBC) [Mass/Vol] 32.0 g/dL 29.9 - 35.2 g/dL [facility] MCV (RBC) [Entitic vol] 87.4 fL 80.0 - 94.0 fL [facility] MONOCYTES ABSOLUTE AUTO 0.4 [facility] Monocytes/100 WBC (Bld) 9.6 % 1.7 - 12.0 % [facility] NEUTROPHILS ABSOLUTE AUTO 1.6 [facility] Neutrophils/100 WBC (Bld) 42.1 % Low 43.0 - 75.0 % [facility] Platelet mean volume (Bld) [Entitic vol] 9.8 fL 9.5 - 13.5 fL [facility] TBH EO # 0.1 [facility] TBH PLT 180 [facility] TB RBC 5.01 [facility] Center TB WBC 3.9 Low [facility] CHEM 7 (LYTES,BUN,CREA,GLUC) on 09-11-2023 Anion gap [Moles/Vol] 13 mmol/L Normal 7-17 [facility] Comment on above: Performed By: #### NATHANIEL RAMÍREZ ####U [facility] (DEFAULT)[address] [place] [address] Chloride [Moles/Vol] 111 mmol/L High 98-108 [facility] Comment on above: Performed By: #### NATHANIEL RAMÍREZ ####[facility] (DEFAULT)[address] [place] [address] CO2 [Moles/Vol] 20 mmol/L Low 21-31 [facility] Comment on above: Performed By: #### Rod BLOOM CHM7 ####[facility] (DEFAULT)[address] [place] [address] Creatinine [Mass/Vol] 1.13 mg/dL Normal 0.70-1.30 [facility] Comment on above: Performed By: #### TJ RAMÍREZ7 ####[facility] (DEFAULT)[address] [place] [address] GFR/1.73 sq M.predicted among non-blacks MDRD (S/P/Bld) [Vol rate/Area] 78 mL/min/{1.73_m2} Normal >=60 [facility] Comment on above: Result Comment: Repo rted eGFR is based on the CKD-EPI 2020 equation using creatinine, age, and sex. Performed By: #### TJ RAMÍREZ7 ####[facility] (DEFAULT)[address] [facility] [place] [address] Glucose [Mass/Vol] 109 mg/dL High 70-99 [facility] Comment on above: Performed By: #### TJ RAMÍREZ7 ####[facility] (DEFAULT)[address] [facility] [place] [address] Osmolality [Osmolality] 295 mosm/kg Normal 278-305 [facility] Comment on above: Performed By: #### TJ RAMÍREZ7 ####[facility] (DEFAULT)[address] [place] [address] Potassium [Moles/Vol] 4.3 mmol/L Normal 3.5-5.0 [facility] Comment on above: Performed By: #### TJ RAMÍREZ7 ####[facility] (DEFAULT)[address] [facility] [place] [address] Sodium [Moles/Vol] 140 mmol/L Normal 135-145 [facility] Comment on above: Performed By: #### TJ RAMÍREZ7 ####[facility] (DEFAULT)[address] [facility] [place] [address] Urea nitrogen [Mass/Vol] 16 mg/dL Normal 7-25 [facility] Comment on above: Performed By: #### TJ RAMÍREZ7 ####[facility] (DEFAULT)[address] [facility] [place] [address] Urea nitrogen/Creatinine [Mass ratio] 14 mg/mg Normal [facility] Comment on above: Performed By: #### TJ RAMÍREZ7 ####[facility] (DEFAULT)[address] [facility] [place] [address] Anion gap [Moles/Vol] 13 mmol/L 7 - 17 mmol/L [facility] Chloride [Moles/Vol] 111 mmol/L High 98 - 10 8 mmol/L [facility] CO2 [Moles/Vol] 20 mmol/L Low 21 - 31 mmol/L [facility] Creatinine [Mass/Vol] 1.13 mg/dL 0.70 - 1.30 mg/dL [facility] eGFR, CKD-EPI, Male 78 - PINF [facility] Glucose [Mass/Vol] 109 mg/dL High 70 - 99 mg/dL [facility] Interpretation and review of laboratory results Abnormal [facility] Osmolality Calc [Osmolality] 295 [facility] Potassium [Moles/Vol] 4.3 mmol/L 3.5 - 5.0 mmol/L [facility] Sodium [Moles/Vol] 140 mmol/L 135 - 145 mmol/L [facility] Urea nitrogen [Mass/Vol] 16 mg/dL 7 - 25 mg/dL [facility] Urea nitrogen/Creatinine [Mass ratio] 14 mg/mg [facility] GLUCOSE POCon 09-11-2023 Glucose [Mass/Vol] 108 mg/dL High 70 - 99 mg/dL [facility] Interpretation and review of laboratory results Abnormal [facility] POC Sample Type CAPBL [facility] Legionella sp identified Org specific cx Nom (Unsp spec)on 09-11-2023 Bacteria identified Cx Nom (Unsp spec) NO GROWTH DAY 7 OF 7 [facility] MAGNESIUMon 09-11-2023 Magnesium [Mass/Vol] 1.6 mg/dL Normal 1.6-2.6 [facility] Comment on above: Performed By: #### M MERLE, CHM7 ####[facility] (DEFAULT)[address] [place] [address] Interpretation and review of laboratory results Normal [facility] Magnesium [Mass/Vol] 1.6 mg/dL 1.6 - 2 .6 mg/dL [facility] No Panel Informationon 09-11 [facility] TACROLIMUS LEVEL, TROUGH (NE E DRUG LEVEL)on 09-11-2023 Interpretation and review of laboratory results Normal [facility] Tacrolimus (Bld) [Mass/Vol] 11.5 ng/mL [facility] Tacrolimus, Trough 11.5 ng/mL Normal [facility]ana ow Transplant: 4.0-12.0, Therapeutic: 5.0-15.0 [facility] Comment on above: Order Comment: Pleas e draw at specified interval PRIOR to dose. Do not hold dose to wait for level. Specimens batched twice per day, (M-F) and once per day weekendsMethod performed is a chemiluminescent microparticle immunoasssay on the [employer] i2000.The range is based on experience at [facility] and users should be aware that target concentrations vary widely depending on concomitant therapy, time post-transplant, and desired degree of immunosuppression. Performed By: #### T ACRO ####[facility] (DEFAULT)[address] [place] [address] CBC,PLATELETSon 09-10-2023 Hematocrit (Bld) [Volume fraction] 40.0 % Normal 39.6-48.8 [facility] Comment on above: Performed By: #### H EMOGC ####[facility] (DEFAULT)[address] [facility] [place] [address] Hemoglobin (Bld) [Mass/Vol] 12.7 g/dL Low 13.4-16.8 [facility] Comment on above: Performed By: #### H EMOGC ####[facility] (DEFAULT)[address] [facility] [place] [address] MCV (RBC) [Entitic vol] 86.0 fL Normal 79.0-94.5 [facility] Comment on above: Performed By: #### H EMOGC ####[facility] (DEFAULT)[address] [facility] [place] [address] Mean Cell Hgb 27.3 pg Normal 26.1-33.3 [facility] Comment on above: Performed By: #### H EMOGC ####[facility] (DEFAULT)[address] [facility] [place] [address] Mean Cell Hgb Conc 31.8 g/dL Low 31.9-36.5 [facility] Comment on above: Performed By: #### H EMOGC ####[facility] (DEFAULT)[address] [facility] [place] [address] Platelet mean volume (Bld) [Entitic vol] 9.5 fL Normal 8.7-12.3 [facility] Comment on above: Performed By: #### H EMOGC ####[facility] (DEFAULT)[address] [place] [address], [place] [address] Platelets (Bld) [#/Vol] 225 10*3/uL Normal 146-337 [facility] Comment on above: Performed By: #### H EMOGC ####[facility] (DEFAULT)[address] [facility] [place] [address] RBC (Bld) [#/Vol] 4.65 10*6/uL Normal 4.38-5.83 [facility] Comment on above: Performed By: #### [facility] ####[facility] (DEFAULT)[address] [facility] [place] [address] RBC Distribution 13.9 % Normal 10.9-14.[address] [facility] Comment on above: Performed By: #### [facility] ####[facility] (DEFAULT)[address] [place] [address] WBC (Bld) [#/Vol] 6.52 10*3/uL Normal 3.73-10.10 [facility] Comment on above: Performed By: #### [facility] ####[facility] (DEFAULT)[address] [place] [address] Erythrocyte distribution width (RBC) [Ratio] 13.9 % 10.9 - 14.3 % [facility] Hematocrit (Bld) [Volume fraction] 40.0 % 39.6 - 48.8 % [facility] Hemoglobin (Bld) [Mass/Vol] 12.7 g/dL Low 13.4 - 16.8 g/dL [facility] Interpretation and review of laboratory results Abnormal [facility] MCH (RBC) [Entitic mass] 27.3 pg 26.1 - 33.3 pg [facility] MCHC (RBC) [Mass/Vol] 31.8 g/dL Low 31.9 - 36.5 g/dL [facility] MCV (RBC) [Entitic vol] 86.0 fL 79.0 - 94.5 fL [facility] Platelet mean volume (Bld) [Entitic vol] 9.5 fL 8.7 - 12.3 fL [facility] Platelets (Bld) [#/Vol] 225 10*3/uL 146 - 337 K/uL [facility] RBC (Bld) [#/Vol] 4.65 10*6/uL [facility] WBC (Bld) [#/Vol] 6.52 10*3/uL 3.73 - 10. 10 K/uL [facility] CHEM 7 (LYTES,BUN,CREA,GLUC) on 09-10-2023 Anion gap [Moles/Vol] 13 mmol/L Normal 7-17 [facility] Comment on above: Performed By: #### Rod BLOOM CHM7, HFP ####[facility] (DEFAULT)[address] [place] [address] Chloride [Moles/Vol] 111 mmol/L High 98-108 [facility] Comment on above: Performed By: #### Rod BLOOM CHM7, HFP ####[facility] (DEFAULT)[address] [facility] [place] [address] CO2 [Moles/Vol] 20 mmol/L Low 21-31 [facility] Comment on above: Performed By: #### Rod BLOOM CHM7, HFP ####[facility] (DEFAULT)[address] [place] [address] Creatinine [Mass/Vol] 1.27 mg/dL Normal 0.70-1.30 [facility] Comment on above: Performed By: #### Rod BLOOM CHM7, HFP ####[facility] (DEFAULT)[address] [facility] [place] [address] GFR/1.73 sq M.predicted among non-blacks MDRD (S/P/Bld) [Vol rate/Area] 68 mL/min/{1.73_m2} Normal >=60 [facility] Comment on above: Result Comment: Repo rted eGFR is based on the CKD-EPI 2020 equation using creatinine, age, and sex. Performed By: #### Rod BLOOM CHM7, HFP ####[facility] (DEFAULT)[address] [facility] [place] [address] Glucose [Mass/Vol] 100 mg/dL High 70-99 [facility] Comment on above: Performed By: #### Rod BLOOM CHM7, HFP ####[facility] (DEFAULT)[address] [facility] [place] [address] Osmolality [Osmolality] 293 mosm/kg Normal 278-305 [facility] Comment on above: Performed By: #### NATHANIEL RMAÍREZ, HFP ####[facility] (DEFAULT)[address] [place] [address] Potassium [Moles/Vol] 4.4 mmol/L Normal 3.5-5.0 [facility] Comment on above: Performed By: #### NATHANIEL RAMÍREZ, HFP ####[facility] (DEFAULT)[address] [facility] [place] [address] Sodium [Moles/Vol] 140 mmol/L Normal 135-145 [facility] Comment on above: Performed By: #### NATHANIEL RAMÍREZ, HFP ####[facility] (DEFAULT)[address] [facility] [place] [address] Urea nitrogen [Mass/Vol] 12 mg/dL Normal 7-25 [facility] Comment on above: Performed By: #### NATHANIEL RAMÍREZ, HFP ####[facility] (DEFAULT)[address] [place] [address] Urea nitrogen/Creatinine [Mass ratio] 9 mg/mg Normal [facility] Comment on above: Performed By: #### NATHANIEL RAMÍREZ, HFP ####[facility] (DEFAULT)[address] [facility] [place] [address] Anion gap [Moles/Vol] 13 mmol/L 7 - 17 mmol/L [facility] Chloride [Moles/Vol] 111 mmol/L High 98 - 10 8 mmol/L [facility] CO2 [Moles/Vol] 20 mmol/L Low 21 - 31 mmol/L [facility] Creatinine [Mass/Vol] 1.27 mg/dL 0.70 - 1.30 mg/dL [facility] eGFR, CKD-EPI, Male 68 - PINF [facility] Glucose [Mass/Vol] 100 mg/dL High 70 - 99 mg/dL [facility] Osmolality Calc [Osmolality] 293 [facility] Potassium [Moles/Vol] 4.4 mmol/L 3.5 - 5.0 mmol/L [facility] Sodium [Moles/Vol] 140 mmol/L 135 - 145 mmol/L [facility] Urea nitrogen [Mass/Vol] 12 mg/dL 7 - 25 mg/dL [facility] Urea nitrogen/Creatinine [Mass ratio] 9 mg/mg [facility] HEPATIC FUNCTION PANELon Albumin [Mass/Vol] 3.3 g/dL Low 3.5-5.0 [facility] Comment on above: Performed By: #### NATHANIEL RAMÍREZ, HFP ####[facility] (DEFAULT)[address] [place] [address] ALP [Catalytic activity/Vol] 143 U/L High 32-126 [facility] Comment on above: Performed By: #### NATHANIEL RAMÍREZ, HFP ####[facility] (DEFAULT)[address] [place] [address] ALT [Catalytic activity/Vol] 28 U/L Normal 10-52 [facility] Comment on above: Performed By: #### NATHANIEL RAMÍREZ, HFP ####[facility] (DEFAULT)[address] [place] [address] AST [Catalytic activity/Vol] 29 U/L Normal 10-39 [facility] Comment on above: Performed By: #### NATHANIEL RAMÍREZ, HFP ####[facility] (DEFAULT)[address] [place] [address] Bilirubin [Mass/Vol] 0.9 mg/dL Normal <1.5 [facility] Comment on above: Performed By: #### NATHANIEL RAMÍREZ, HFP ####[facility] (DEFAULT)[address] [place] [address] Bilirubin.indirect [Mass/Vol] 0.2 mg/dL Normal <0.3 [facility] Comment on above: Performed By: #### M NATHANIEL BLOOM, HFP ####[facility] (DEFAULT)[address] [facility] [place] [address] Protein [Mass/Vol] 6.8 g/dL Normal 6.4-8.3 [facility] Comment on above: Performed By: #### M NATHANIEL BLOOM, HFP ####[facility] (DEFAULT)[address] [facility] [place] [address] Albumin [Mass/Vol] 3.3 g/dL Low 3.5 - 5.0 g/dL [facility] ALP [Catalytic activity/Vol] 143 U/L High 32 - 126 U/L [facility] ALT [Catalytic activity/Vol] 28 U/L 10 - 52 U/L [facility] AST [Catalytic activity/Vol] 29 U/L 10 - 39 U/L [facility] Bilirubin [Mass/Vol] 0.9 mg/dL NINF - 1.5 mg/dL [facility] Bilirubin.direct [Mass/Vol] 0.2 mg/dL NINF - 0.3 mg/dL [facility] Protein [Mass/Vol] 6.8 g/dL 6.4 - 8.3 g/dL [facility] MAGNESIUMon 09-10-2023 Magnesium [Mass/Vol] 1.9 mg/dL Normal 1.6-2.6 [facility] Comment on above: Performed By: #### M NATHANIEL BLOOM, HFP ####[facility] (DEFAULT)[address] [place] [address] Interpretation and review of laboratory results Normal [facility] Magnesium [Mass/Vol] 1.9 mg/dL 1.6 - 2 .6 mg/dL [facility] No Panel Informationon 09-10 Interpretation and review of laboratory results Abnormal [facility] TACROLIMUS LEVEL, TROUGH (NE E DRUG LEVEL)Ordered By: Jimy Castillo on 09-10-2023 Interpretation and review of laboratory results Normal [facility] Tacrolimus (Bld) [Mass/Vol] 11.8 ng/mL [facility] TACROLIMUS LEVEL, TROUGH (NE E DRUG LEVEL)on 09-10-2023 Tacrolimus, Trough 11.8 ng/mL Normal [facility] ow Transplant: 4.0-12.0, Therapeutic: 5.0-15.0 [facility] Comment on above: Order Comment: Pleas e draw at specified interval PRIOR to dose. Do not hold dose to wait for level. Specimens batched twice per day, (M-F) and once per day weekendsMethod performed is a chemiluminescent microparticle immunoasssay on the [employer] i2000.The range is based on experience at [facility] and users should be aware that target concentrations vary widely depending on concomitant therapy, time post-transplant, and desired degree of immunosuppression. Performed By: #### T ACRO ####[facility] (DEFAULT)[address] [place] [address] CHEM 7 (LYTES,BUN,CREA,GLUC) on 09-09-2023 Anion gap [Moles/Vol] 14 mmol/L Normal 7-17 [facility] Comment on above: Performed By: #### JO ANN RAMÍREZ CHM7 ####[facility] (DEFAULT)[address] [place] [address] Chloride [Moles/Vol] 113 mmol/L High 98-108 [facility] Comment on above: Performed By: #### JO ANN RAMÍREZ CHM7 ####[facility] (DEFAULT)[address] [place] [address] CO2 [Moles/Vol] 18 mmol/L Low 21-31 [facility] Comment on above: Performed By: #### JO ANN RAMÍREZ CHM7 ####[facility] (DEFAULT)[address] [place] [address] Creatinine [Mass/Vol] 1.03 mg/dL Normal 0.70-1.30 [facility] Comment on above: Performed By: #### JO ANN RAMÍREZ CHM7 ####[facility] (DEFAULT)[address] [place] [address] GFR/1.73 sq M.predicted among non-blacks MDRD (S/P/Bld) [Vol rate/Area] 87 mL/min/{1.73_m2} Normal >=60 [facility] Comment on above: Result Comment: Repo rted eGFR is based on the CKD-EPI 2020 equation using creatinine, age, and sex. Performed By: #### JO ANN RAMÍREZ CHM7 ####[facility] (DEFAULT)[address] [facility] [place] [address] Glucose [Mass/Vol] 106 mg/dL High 70-99 [facility] Comment on above: Performed By: #### JO ANN RAMÍREZ CHRod7 ####[facility] (DEFAULT)[address] [facility] [place] [address] Osmolality [Osmolality] 294 mosm/kg Normal 278-305 [facility] Comment on above: Performed By: #### JO ANN ARMÍREZ CHM7 ####[facility] (DEFAULT)[address] [place] [address] Potassium [Moles/Vol] 4.0 mmol/L Normal 3.5-5.0 [facility] Comment on above: Performed By: #### JO ANN RAMÍREZ CHM7 ####[facility] (DEFAULT)[address] [place] [address] Sodium [Moles/Vol] 141 mmol/L Normal 135-145 [facility] Comment on above: Performed By: #### JO ANN RAMÍREZ CHM7 ####[facility] (DEFAULT)[address] [place] [address] Urea nitrogen [Mass/Vol] 10 mg/dL Normal 7-25 [facility] Comment on above: Performed By: #### JO ANN RAMÍREZ CHM7 ####[facility] (DEFAULT)[address] [place] [address] Urea nitrogen/Creatinine [Mass ratio] 10 mg/mg Normal [facility] Comment on above: Performed By: #### M JO ANN BLOOM CHM7 ####[facility] (DEFAULT)[address] [place] [address] Anion gap [Moles/Vol] 14 mmol/L 7 - 17 mmol/L [facility] Chloride [Moles/Vol] 113 mmol/L High 98 - 10 8 mmol/L [facility] CO2 [Moles/Vol] 18 mmol/L Low 21 - 31 mmol/L [facility] Creatinine [Mass/Vol] 1.03 mg/dL 0.70 - 1.30 mg/dL [facility] eGFR, CKD-EPI, Male 87 - [facility]F [facility] Glucose [Mass/Vol] 106 mg/dL High 70 - 99 mg/dL [facility] Interpretation and review of laboratory results Abnormal [facility] Osmolality Calc [Osmolality] 294 [facility] Potassium [Moles/Vol] 4.0 mmol/L 3.5 - 5.0 mmol/L [facility] Sodium [Moles/Vol] 141 mmol/L 135 - 145 mmol/L [facility] Urea nitrogen [Mass/Vol] 10 mg/dL 7 - 25 mg/dL [facility] Urea nitrogen/Creatinine [Mass ratio] 10 mg/mg [facility] MAGNESIUMon 09-09-2023 Magnesium [Mass/Vol] 1.6 mg/dL Normal 1.6-2.6 [facility] Comment on above: Performed By: #### M JO ANN BLOOM CHM7 ####[facility] (DEFAULT)[address] [place] [address] Magnesium [Mass/Vol] 1.6 mg/dL 1.6 - 2 .6 mg/dL [facility] No Panel Informationon 09-09 Interpretation and review of laboratory results [facility] PHOSPHATE, INORGANICon 09-09 Phosphorous 3.8 mg/dL Normal 2.2-4.6 [facility] Comment on above: Performed By: #### M MERLE, JO ANN, CHM7 ####[facility] (DEFAULT)[address] [place] [address] Phosphate [Mass/Vol] 3.8 mg/dL 2.2 - 4 .6 mg/dL [facility] TACROLIMUS LEVEL, TROUGH (NE E DRUG LEVEL)on 09-09-2023 Interpretation and review of laboratory results Normal [facility] Tacrolimus (Bld) [Mass/Vol] 9.2 ng/mL [facility] Tacrolimus, Trough 9.2 ng/mL Normal [facility] Susana ow Transplant: 4.0-12.0, Therapeutic: 5.0-15.0 [facility] Comment on above: Order Comment: Pleas e draw at specified interval PRIOR to dose. Do not hold dose to wait for level. Specimens batched twice per day, (M-F) and once per day weekendsMethod performed is a chemiluminescent microparticle immunoasssay on the [employer] i2000.The range is based on experience at [facility] and users should be aware that target concentrations vary widely depending on concomitant therapy, time post-transplant, and desired degree of immunosuppression. Performed By: #### T ACRO ####[facility] (DEFAULT)[address] [place] [address] CBC,PLATELETSon 09-08-2023 Hematocrit (Bld) [Volume fraction] 36.1 % Low 39.6-48.8 [facility] Comment on above: Performed By: #### [facility] ####[facility] (DEFAULT)[address] [place] [address] Hemoglobin (Bld) [Mass/Vol] 11.6 g/dL Low 13.4-16.8 [facility] Comment on above: Performed By: #### H EMO ####[facility] (DEFAULT)[address] [place] [address] MCV (RBC) [Entitic vol] 85.1 fL Normal 79.0-94.5 [facility] Comment on above: Performed By: #### H EMOGC ####[facility] (DEFAULT)[address] [place] [address] Mean Cell Hgb 27.4 pg Normal 26.1-33.3 [facility] Comment on above: Performed By: #### H EMOGC ####[facility] (DEFAULT)[address] [facility] [place] [address] Mean Cell Hgb Conc 32.1 g/dL Normal 31.9-36.5 [facility] Comment on above: Performed By: #### H EMOGC ####[facility] (DEFAULT)[address] [facility] [place] [address] Platelet mean volume (Bld) [Entitic vol] 9.5 fL Normal 8.7-12.3 [facility] Comment on above: Performed By: #### H EMOGC ####[facility] (DEFAULT)[address] [place] [address] Platelets (Bld) [#/Vol] 182 10*3/uL Normal 146-337 [facility] Comment on above: Performed By: #### H EMOGC ####[facility] (DEFAULT)[address] [place] [address] RBC (Bld) [#/Vol] 4.24 10*6/uL Low 4.38-5.83 [facility] Comment on above: Performed By: #### H EMOGC ####[facility] (DEFAULT)[address] [place] [address] RBC Distribution 13.6 % Normal 10.9-14.[address] [facility] Comment on above: Performed By: #### H EMOGC ####[facility] (DEFAULT)[address] [place] [address] WBC (Bld) [#/Vol] 4.59 10*3/uL Normal 3.73-10.10 [facility] Comment on above: Performed By: #### [facility] ####[facility] (DEFAULT)[address] [place] [address] Erythrocyte distribution width (RBC) [Ratio] 13.6 % 10.9 - 14.3 % [facility] Hematocrit (Bld) [Volume fraction] 36.1 % Low 39.6 - 48.8 % [facility] Hemoglobin (Bld) [Mass/Vol] 11.6 g/dL Low 13.4 - 16.8 g/dL [facility] Interpretation and review of laboratory results Abnormal [facility] MCH (RBC) [Entitic mass] 27.4 pg 26.1 - 33.3 pg [facility] MCHC (RBC) [Mass/Vol] 32.1 g/dL 31.9 - 36.5 g/dL [facility] MCV (RBC) [Entitic vol] 85.1 fL 79.0 - 94.5 fL [facility] Platelet mean volume (Bld) [Entitic vol] 9.5 fL 8.7 - 12.3 fL [facility] Platelets (Bld) [#/Vol] 182 10*3/uL 146 - 337 K/uL [facility] RBC (Bld) [#/Vol] 4.24 10*6/uL Low [facility] WBC (Bld) [#/Vol] 4.59 10*3/uL 3.73 - 10. 10 K/uL [facility] CHEM 7 (LYTES,BUN,CREA,GLUC) on 09-08-2023 Anion gap [Moles/Vol] 12 mmol/L Normal 7-17 [facility] Comment on above: Performed By: #### M GO, IPB, HFP, CHM7 ####[facility] (DEFAULT)[address] [place] [address] Chloride [Moles/Vol] 113 mmol/L High 98-108 [facility] Comment on above: Performed By: #### M MERLE, IPB, HFP, CHM7 ####[facility] (DEFAULT)[address] [place] [address] CO2 [Moles/Vol] 21 mmol/L Normal 21-31 [facility] Comment on above: Performed By: #### M MERLE, IPB, HFP, CHM7 ####[facility] (DEFAULT)[address] [place] [address] Creatinine [Mass/Vol] 1.14 mg/dL Normal 0.70-1.30 [facility] Comment on above: Performed By: #### M MERLE, IPB, HFP, CHM7 ####[facility] (DEFAULT)[address] [place] [address] GFR/1.73 sq M.predicted among non-blacks MDRD (S/P/Bld) [Vol rate/Area] 77 mL/min/{1.73_m2} Normal >=60 [facility] Comment on above: Result Comment: Repo rted eGFR is based on the CKD-EPI 2020 equation using creatinine, age, and sex. Performed By: #### M MERLE, IPB, HFP, CHM7 ####[facility] (DEFAULT)[address] [place] [address] Glucose [Mass/Vol] 107 mg/dL High 70-99 [facility] Comment on above: Performed By: #### M MERLE, IPB, HFP, CHM7 ####[facility] (DEFAULT)[address] [place] [address] Osmolality [Osmolality] 296 mosm/kg Normal 278-305 [facility] Comment on above: Performed By: #### M MERLE, IPB, HFP, CHM7 ####[facility] (DEFAULT)[address] [place] [address] Potassium [Moles/Vol] 3.9 mmol/L Normal 3.5-5.0 [facility] Comment on above: Performed By: #### M MERLE, IPB, HFP, CHM7 ####[facility] (DEFAULT)[address] [place] [address] Sodium [Moles/Vol] 142 mmol/L Normal 135-145 [facility] Comment on above: Performed By: #### M MERLE, IPB, HFP, CHM7 ####[facility] (DEFAULT)[address] [place] [address] Urea nitrogen [Mass/Vol] 11 mg/dL Normal 7-25 [facility] Comment on above: Performed By: #### M MERLE, IPB, HFP, CHM7 ####[facility] (DEFAULT)[address] [facility] [place] [address] Urea nitrogen/Creatinine [Mass ratio] 10 mg/mg Normal [facility] Comment on above: Performed By: #### M MERLE, IPB, HFP, CHM7 ####[facility] (DEFAULT)[address] [facility] [place] [address] Anion gap [Moles/Vol] 12 mmol/L 7 - 17 mmol/L [facility] Chloride [Moles/Vol] 113 mmol/L High 98 - 10 8 mmol/L [facility] CO2 [Moles/Vol] 21 mmol/L 21 - 31 mmol/L [facility] Creatinine [Mass/Vol] 1.14 mg/dL 0.70 - 1.30 mg/dL [facility] eGFR, CKD-EPI, Male 77 - PINF [facility] Glucose [Mass/Vol] 107 mg/dL High 70 - 99 mg/dL [facility] Osmolality Calc [Osmolality] [facility] Potassium [Moles/Vol] 3.9 mmol/L 3.5 - 5.0 mmol/L [facility] Sodium [Moles/Vol] 142 mmol/L 135 - 145 mmol/L [facility] Urea nitrogen [Mass/Vol] 11 mg/dL 7 - 25 mg/dL [facility] Urea nitrogen/Creatinine [Mass ratio] 10 mg/mg [facility] HEPATIC FUNCTION PANELon Albumin [Mass/Vol] 2.9 g/dL Low 3.5-5.0 [facility] Comment on above: Performed By: #### M GO, IPB, HFP, CHM7 ####[facility] (DEFAULT)[address] [place] [address] ALP [Catalytic activity/Vol] 133 U/L High 32-126 [facility] Comment on above: Performed By: #### M GO, IPB, HFP, CHM7 ####[facility] (DEFAULT)[address] [place] [address] ALT [Catalytic activity/Vol] 23 U/L Normal 10-52 [facility] Comment on above: Performed By: #### M GO, IPB, HFP, CHM7 ####[facility] (DEFAULT)[address] [place] [address] AST [Catalytic activity/Vol] 23 U/L Normal 10-39 [facility] Comment on above: Performed By: #### M GO, IPB, HFP, CHM7 ####[facility] (DEFAULT)[address] [place] [address] Bilirubin [Mass/Vol] 0.8 mg/dL Normal <1.5 [facility] Comment on above: Performed By: #### M GO, IPB, HFP, CHM7 ####[facility] (DEFAULT)[address] [place] [address] Bilirubin.indirect [Mass/Vol] 0.2 mg/dL Normal <0.3 [facility] Comment on above: Performed By: #### M GO, IPB, HFP, CHM7 ####[facility] (DEFAULT)[address] [place] [address] Protein [Mass/Vol] 5.9 g/dL Low 6.4-8.3 [facility] Comment on above: Performed By: #### M JO ANN BLOOM, TAVO, CHM7 ####[facility] (DEFAULT)[address] [place] [address] Albumin [Mass/Vol] 2.9 g/dL Low 3.5 - 5.0 g/dL [facility] ALP [Catalytic activity/Vol] 133 U/L High 32 - 126 U/L [facility] ALT [Catalytic activity/Vol] 23 U/L 10 - 52 U/L [facility] AST [Catalytic activity/Vol] 23 U/L 10 - 39 U/L [facility] Bilirubin [Mass/Vol] 0.8 mg/dL NINF - 1.5 mg/dL [facility] Bilirubin.direct [Mass/Vol] 0.2 mg/dL NINF - 0.3 mg/dL [facility] Protein [Mass/Vol] 5.9 g/dL Low 6.4 - 8.3 g/dL [facility] MAGNESIUMon 09-08-2023 Magnesium [Mass/Vol] 1.8 mg/dL Normal 1.6-2.6 [facility] Comment on above: Performed By: #### M JO ANN BLOOM, TAVO, CHM7 ####[facility] (DEFAULT)[address] [place] [address] Interpretation and review of laboratory results Normal [facility] Magnesium [Mass/Vol] 1.8 mg/dL 1.6 - 2 .6 mg/dL [facility] No Panel Informationon 09-08 Interpretation and review of laboratory results Abnormal [facility] PHOSPHATE, INORGANICon 09-08 Interpretation and review of laboratory results Normal [facility] Phosphate [Mass/Vol] 4.1 mg/dL 2.2 - 4 .6 mg/dL [facility] Phosphorous 4.1 mg/dL Normal 2.2-4.6 [facility] Comment on above: Performed By: #### M GO, IPB, HFP, CHM7 ####[facility] (DEFAULT)[address] [place] [address] TACROLIMUS LEVEL, TROUGH (NE E DRUG LEVEL)on 09-08-2023 Interpretation and review of laboratory results Normal [facility] Tacrolimus (Bld) [Mass/Vol] 8.5 ng/mL [facility] Tacrolimus, Trough 8.5 ng/mL Normal Bone Susana ow Transplant: 4.0-12.0, Therapeutic: 5.0-15.0 [facility] Comment on above: Order Comment: Pleas e draw at specified interval PRIOR to dose. Do not hold dose to wait for level. Specimens batched twice per day, (M-F) and once per day weekendsMethod performed is a chemiluminescent microparticle immunoasssay on the [employer] i2000.The range is based on experience at [facility] and users should be aware that target concentrations vary widely depending on concomitant therapy, time post-transplant, and desired degree of immunosuppression. Performed By: #### T ACRO ####[facility] (DEFAULT)[address] [place] [address] CBC,PLATELETSon 09-07-2023 Hematocrit (Bld) [Volume fraction] 37.1 % Low 39.6-48.8 [facility] Comment on above: Performed By: #### [facility] ####[facility] (DEFAULT)[address] [place] [address] Hemoglobin (Bld) [Mass/Vol] 11.9 g/dL Low 13.4-16.8 [facility] Comment on above: Performed By: #### H EMO ####[facility] (DEFAULT)[address] [place] [address] MCV (RBC) [Entitic vol] 86.5 fL Normal 79.0-94.5 [facility] Comment on above: Performed By: #### H EMO ####[facility] (DEFAULT)[address] [place] [address] Mean Cell Hgb 27.7 pg Normal 26.1-33.3 [facility] Comment on above: Performed By: #### H EMOGC ####[facility] (DEFAULT)[address] [place] [address] Mean Cell Hgb Conc 32.1 g/dL Normal 31.9-36.5 [facility] Comment on above: Performed By: #### H EMOGC ####[facility] (DEFAULT)[address] [place] [address] Platelet mean volume (Bld) [Entitic vol] 9.6 fL Normal 8.7-12.3 [facility] Comment on above: Performed By: #### H EMOGC ####[facility] (DEFAULT)[address] [place] [address] Platelets (Bld) [#/Vol] 176 10*3/uL Normal 146-337 [facility] Comment on above: Performed By: #### H EMOGC ####[facility] (DEFAULT)[address] [place] [address] RBC (Bld) [#/Vol] 4.29 10*6/uL Low 4.38-5.83 [facility] Comment on above: Performed By: #### H EMOGC ####[facility] (DEFAULT)[address] [place] [address] RBC Distribution 13.5 % Normal 10.9-14.[address] [facility] Comment on above: Performed By: #### H EMOGC ####[facility] (DEFAULT)[address] [place] [address] WBC (Bld) [#/Vol] 4.10 10*3/uL Normal 3.73-10.10 [facility] Comment on above: Performed By: #### H EMOGC ####[facility] (DEFAULT)[address] [place] [address] Erythrocyte distribution width (RBC) [Ratio] 13.5 % 10.9 - 14.3 % [facility] Hematocrit (Bld) [Volume fraction] 37.1 % Low 39.6 - 48.8 % [facility] Hemoglobin (Bld) [Mass/Vol] 11.9 g/dL Low 13.4 - 16.8 g/dL [facility] Interpretation and review of laboratory results Abnormal [facility] MCH (RBC) [Entitic mass] 27.7 pg 26.1 - 33.3 pg [facility] MCHC (RBC) [Mass/Vol] 32.1 g/dL 31.9 - 36.5 g/dL [facility] MCV (RBC) [Entitic vol] 86.5 fL 79.0 - 94.5 fL [facility] Platelet mean volume (Bld) [Entitic vol] 9.6 fL 8.7 - 12.3 fL [facility] Platelets (Bld) [#/Vol] 176 10*3/uL 146 - 337 K/uL [facility] RBC (Bld) [#/Vol] 4.29 10*6/uL Low [facility] WBC (Bld) [#/Vol] 4.10 10*3/uL 3.73 - 10. 10 K/uL [facility] CHEM 7 (LYTES,BUN,CREA,GLUC) on 09-07-2023 Anion gap [Moles/Vol] 13 mmol/L Normal 7-17 [facility] Comment on above: Performed By: #### C HM7, IPB, MGO, HFP ####[facility] (DEFAULT)[address] [place] [address] Chloride [Moles/Vol] 113 mmol/L High 98-108 [facility] Comment on above: Performed By: #### C HM7, IPB, MGO, HFP ####[facility] (DEFAULT)[address] [place] [address] CO2 [Moles/Vol] 19 mmol/L Low 21-31 [facility] Comment on above: Performed By: #### C HM7, IPB, MGO, HFP ####[facility] (DEFAULT)[address] [facility] [place] [address] Creatinine [Mass/Vol] 1.22 mg/dL Normal 0.70-1.30 [facility] Comment on above: Performed By: #### C HM7, IPB, MGO, HFP ####[facility] (DEFAULT)[address] [facility] [place] [address] GFR/1.73 sq M.predicted among non-blacks MDRD (S/P/Bld) [Vol rate/Area] 71 mL/min/{1.73_m2} Normal >=60 [facility] Comment on above: Result Comment: Repo rted eGFR is based on the CKD-EPI 2020 equation using creatinine, age, and sex. Performed By: #### C HM7, IPB, MGO, HFP ####[facility] (DEFAULT)[address] [facility] [place] [address] Glucose [Mass/Vol] 107 mg/dL High 70-99 [facility] Comment on above: Performed By: #### C HM7, IPB, MGO, HFP ####[facility] (DEFAULT)[address] [facility] [place] [address] Osmolality [Osmolality] 295 mosm/kg Normal 278-305 [facility] Comment on above: Performed By: #### C HM7, IPB, MGO, HFP ####[facility] (DEFAULT)[address] [facility] [place] [address] Potassium [Moles/Vol] 3.9 mmol/L Normal 3.5-5.0 [facility] Comment on above: Performed By: #### C HM7, IPB, MGO, HFP ####[facility] (DEFAULT)[address] [facility] [place] [address] Sodium [Moles/Vol] 141 mmol/L Normal 135-145 [facility] Comment on above: Performed By: #### C HM7, IPB, MGO, HFP ####[facility] (DEFAULT)[address] [facility] [place] [address] Urea nitrogen [Mass/Vol] 13 mg/dL Normal 7-25 [facility] Comment on above: Performed By: #### C HM7, IPB, MGO, HFP ####[facility] (DEFAULT)[address] [facility] [place] [address] Urea nitrogen/Creatinine [Mass ratio] 11 mg/mg Normal [facility] Comment on above: Performed By: #### C HM7, IPB, MGO, HFP ####[facility] (DEFAULT)[address] [facility] [place] [address] Anion gap [Moles/Vol] 13 mmol/L 7 - 17 mmol/L [facility] Chloride [Moles/Vol] 113 mmol/L High 98 - 10 8 mmol/L [facility] CO2 [Moles/Vol] 19 mmol/L Low 21 - 31 mmol/L [facility] Creatinine [Mass/Vol] 1.22 mg/dL 0.70 - 1.30 mg/dL [facility] eGFR, CKD-EPI, Male 71 - PINF [facility] Glucose [Mass/Vol] 107 mg/dL High 70 - 99 mg/dL [facility] Osmolality Calc [Osmolality] 295 [facility] Potassium [Moles/Vol] 3.9 mmol/L 3.5 - 5.0 mmol/L [facility] Sodium [Moles/Vol] 141 mmol/L 135 - 145 mmol/L [facility] Urea nitrogen [Mass/Vol] 13 mg/dL 7 - 25 mg/dL [facility] Urea nitrogen/Creatinine [Mass ratio] 11 mg/mg [facility] HEPATIC FUNCTION PANELon Albumin [Mass/Vol] 2.9 g/dL Low 3.5-5.0 [facility] Comment on above: Performed By: #### C HM7, IPB, MGO, HFP ####[facility] (DEFAULT)[address] [place] [address] ALP [Catalytic activity/Vol] 111 U/L Normal 32-126 [facility] Comment on above: Performed By: #### C HM7, IPB, MGO, HFP ####[facility] (DEFAULT)[address] [place] [address] ALT [Catalytic activity/Vol] 18 U/L Normal 10-52 [facility] Comment on above: Performed By: #### C HM7, IPB, MGO, HFP ####[facility] (DEFAULT)[address] [place] [address] AST [Catalytic activity/Vol] 23 U/L Normal 10-39 [facility] Comment on above: Performed By: #### C HM7, IPB, MGO, HFP ####[facility] (DEFAULT)[address] [place] [address] Bilirubin [Mass/Vol] 0.8 mg/dL Normal <1.5 [facility] Comment on above: Performed By: #### C HM7, IPB, MGO, HFP ####[facility] (DEFAULT)[address] [place] [address] Bilirubin.indirect [Mass/Vol] 0.3 mg/dL High <0.3 [facility] Comment on above: Performed By: #### C HM7, IPB, MGO, HFP ####[facility] (DEFAULT)[address] [place] [address] Protein [Mass/Vol] 6.0 g/dL Low 6.4-8.3 [facility] Comment on above: Performed By: #### C HM7, IPB, MGO, HFP ####[facility] (DEFAULT)[address] [place] [address] Albumin [Mass/Vol] 2.9 g/dL Low 3.5 - 5.0 g/dL [facility] ALP [Catalytic activity/Vol] 111 U/L 32 - 126 U/L [facility] ALT [Catalytic activity/Vol] 18 U/L 10 - 52 U/L [facility] AST [Catalytic activity/Vol] 23 U/L 10 - 39 U/L [facility] Bilirubin [Mass/Vol] 0.8 mg/dL NINF - 1.5 mg/dL [facility] Bilirubin.direct [Mass/Vol] 0.3 mg/dL High NINF - 0.3 mg/dL [facility] Protein [Mass/Vol] 6.0 g/dL Low 6.4 - 8.3 g/dL [facility] MAGNESIUMon 09-07-2023 Magnesium [Mass/Vol] 1.7 mg/dL Normal 1.6-2.6 [facility] Comment on above: Performed By: #### C HM7, IPB, MGO, HFP ####[facility] (DEFAULT)[address] [place] [address] Interpretation and review of laboratory results Normal [facility] Magnesium [Mass/Vol] 1.7 mg/dL 1.6 - 2 .6 mg/dL [facility] No Panel Informationon 09-07 Interpretation and review of laboratory results Abnormal [facility] PHOSPHATE, INORGANICon 09-07 Phosphorous 4.4 mg/dL Normal 2.2-4.6 [facility] Comment on above: Performed By: #### C HM7, IPB, MGO, HFP ####[facility] (DEFAULT)[address] [place] [address] Interpretation and review of laboratory results Normal [facility] Phosphate [Mass/Vol] 4.4 mg/dL 2.2 - 4 .6 mg/dL [facility] TACROLIMUS LEVEL, TROUGH (NE E DRUG LEVEL)Ordered By: Elizabeth Maldonado on 09-07-2023 Interpretation and review of laboratory results Normal [facility] Tacrolimus (Bld) [Mass/Vol] 7.8 ng/mL [facility] TACROLIMUS LEVEL, TROUGH (NE E DRUG LEVEL)on 09-07-2023 Tacrolimus, Trough 7.8 ng/mL Normal Bone Susana ow Transplant: 4.0-12.0, Therapeutic: 5.0-15.0 [facility] Comment on above: Order Comment: Pleas e draw at specified interval PRIOR to dose. Do not hold dose to wait for level. Specimens batched twice per day, (M-) and once per day weekendsMethod performed is a chemiluminescent microparticle immunoasssay on the [employer] i2000.The range is based on experience at [facility] and users should be aware that target concentrations vary widely depending on concomitant therapy, time post-transplant, and desired degree of immunosuppression. Performed By: #### T ACRO ####[facility] (DEFAULT)[address] [place] [address] CBC,PLATELETSon 09-06-2023 Hematocrit (Bld) [Volume fraction] 38.4 % Low 39.6-48.8 [facility] Comment on above: Performed By: #### [facility] ####[facility] (DEFAULT)[address] [place] [address] Hemoglobin (Bld) [Mass/Vol] 11.9 g/dL Low 13.4-16.8 [facility] Comment on above: Performed By: #### [facility] ####[facility] (DEFAULT)[address] [place] [address] MCV (RBC) [Entitic vol] 85.9 fL Normal 79.0-94.5 [facility] Comment on above: Performed By: #### [facility] ####[facility] (DEFAULT)[address] [place] [address] Mean Cell Hgb 26.6 pg Normal 26.1-33.3 [facility] Comment on above: Performed By: #### H EMOGC ####[facility] (DEFAULT)[address] [place] [address] Mean Cell Hgb Conc 31.0 g/dL Low 31.9-36.5 [facility] Comment on above: Performed By: #### H EMOGC ####[facility] (DEFAULT)[address] [facility] [place] [address] Platelet mean volume (Bld) [Entitic vol] 9.7 fL Normal 8.7-12.3 [facility] Comment on above: Performed By: #### H EMOGC ####[facility] (DEFAULT)[address] [facility] [place] [address] Platelets (Bld) [#/Vol] 181 10*3/uL Normal 146-337 [facility] Comment on above: Performed By: #### H EMOGC ####[facility] (DEFAULT)[address] [facility] [place] [address] RBC (Bld) [#/Vol] 4.47 10*6/uL Normal 4.38-5.83 [facility] Comment on above: Performed By: #### H EMOGC ####[facility] (DEFAULT)[address] [facility] [place] [address] RBC Distribution 13.4 % Normal 10.9-14.[address] [facility] Comment on above: Performed By: #### H EMOGC ####[facility] (DEFAULT)[address] [facility] [place] [address] WBC (Bld) [#/Vol] 4.41 10*3/uL Normal 3.73-10.10 [facility] Comment on above: Performed By: #### H EMOGC ####[facility] (DEFAULT)[address] [facility] [place] [address] Erythrocyte distribution width (RBC) [Ratio] 13.4 % 10.9 - 14.3 % [facility] Hematocrit (Bld) [Volume fraction] 38.4 % Low 39.6 - 48.8 % [facility] Hemoglobin (Bld) [Mass/Vol] 11.9 g/dL Low 13.4 - 16.8 g/dL [facility] Interpretation and review of laboratory results Abnormal [facility] MCH (RBC) [Entitic mass] 26.6 pg 26.1 - 33.3 pg [facility] MCHC (RBC) [Mass/Vol] 31.0 g/dL Low 31.9 - 36.5 g/dL [facility] MCV (RBC) [Entitic vol] 85.9 fL 79.0 - 94.5 fL [facility] Platelet mean volume (Bld) [Entitic vol] 9.7 fL 8.7 - 12.3 fL [facility] Platelets (Bld) [#/Vol] 181 10*3/uL 146 - 337 K/uL [facility] RBC (Bld) [#/Vol] 4.47 10*6/uL [facility] WBC (Bld) [#/Vol] 4.41 10*3/uL 3.73 - 10. 10 K/uL [facility] CHEM 7 (LYTES,BUN,CREA,GLUC) on 09-06-2023 Anion gap [Moles/Vol] 14 mmol/L 7 - 17 mmol/L [facility] Chloride [Moles/Vol] 109 mmol/L High 98 - 10 8 mmol/L [facility] CO2 [Moles/Vol] 19 mmol/L Low 21 - 31 mmol/L [facility] Creatinine [Mass/Vol] 1.26 mg/dL 0.70 - 1.30 mg/dL [facility] eGFR, CKD-EPI, Male 69 - PINF [facility] Glucose [Mass/Vol] 114 mg/dL High 70 - 99 mg/dL [facility] Osmolality Calc [Osmolality] 291 [facility] Potassium [Moles/Vol] 4.1 mmol/L 3.5 - 5.0 mmol/L [facility] Sodium [Moles/Vol] 138 mmol/L 135 - 145 mmol/L [facility] Urea nitrogen [Mass/Vol] 16 mg/dL 7 - 25 mg/dL [facility] Urea nitrogen/Creatinine [Mass ratio] 13 mg/mg [facility] Anion gap [Moles/Vol] 14 mmol/L Normal 7-17 [facility] Comment on above: Performed By: #### NATHANIEL RAMÍREZ, HFP ####[facility] (DEFAULT)[address] [place] [address] Chloride [Moles/Vol] 109 mmol/L High 98-108 [facility] Comment on above: Performed By: #### NATHANIEL RAMÍREZ, HFP ####[facility] (DEFAULT)[address] [place] [address] CO2 [Moles/Vol] 19 mmol/L Low 21-31 [facility] Comment on above: Performed By: #### NATHANIEL RAMÍREZ, HFP ####[facility] (DEFAULT)[address] [facility] [place] [address] Creatinine [Mass/Vol] 1.26 mg/dL Normal 0.70-1.30 [facility] Comment on above: Performed By: #### NATHANIEL RAMÍREZ, HFP ####[facility] (DEFAULT)[address] [facility] [place] [address] GFR/1.73 sq M.predicted among non-blacks MDRD (S/P/Bld) [Vol rate/Area] 69 mL/min/{1.73_m2} Normal >=60 [facility] Comment on above: Result Comment: Repo rted eGFR is based on the CKD-EPI 2020 equation using creatinine, age, and sex. Performed By: #### NATHANIEL RAMÍREZ, HFP ####[facility] (DEFAULT)[address] [facility] [place] [address] Glucose [Mass/Vol] 114 mg/dL High 70-99 [facility] Comment on above: Performed By: #### NATHANIEL RAMÍREZ, HFP ####[facility] (DEFAULT)[address] [place] [address] Osmolality [Osmolality] 291 mosm/kg Normal 278-305 [facility] Comment on above: Performed By: #### NATHANIEL RAMÍREZ, HFP ####[facility] (DEFAULT)[address] [place] [address] Potassium [Moles/Vol] 4.1 mmol/L Normal 3.5-5.0 [facility] Comment on above: Performed By: #### NATHANIEL RAMÍREZ, HFP ####[facility] (DEFAULT)[address] [place] [address] Sodium [Moles/Vol] 138 mmol/L Normal 135-145 [facility] Comment on above: Performed By: #### NATHANIEL RAMÍREZ, HFP ####[facility] (DEFAULT)[address] [place] [address] Urea nitrogen [Mass/Vol] 16 mg/dL Normal 7-25 [facility] Comment on above: Performed By: #### NATHANIEL RAMÍREZ, HFP ####[facility] (DEFAULT)[address] [place] [address] Urea nitrogen/Creatinine [Mass ratio] 13 mg/mg Normal [facility] Comment on above: Performed By: #### NATHANIEL RAMÍREZ, HFP ####[facility] (DEFAULT)[address] [place] [address] HEPATIC FUNCTION PANELon Albumin [Mass/Vol] 3.0 g/dL Low 3.5 - 5.0 g/dL [facility] ALP [Catalytic activity/Vol] 115 U/L 32 - 126 U/L [facility] ALT [Catalytic activity/Vol] 25 U/L 10 - 52 U/L [facility] AST [Catalytic activity/Vol] 31 U/L 10 - 39 U/L [facility] Bilirubin [Mass/Vol] 1.0 mg/dL NINF - 1.5 mg/dL [facility] Bilirubin.direct [Mass/Vol] 0.3 mg/dL High NINF - 0.3 mg/dL [facility] Protein [Mass/Vol] 6.3 g/dL Low 6.4 - 8.3 g/dL [facility] Albumin [Mass/Vol] 3.0 g/dL Low 3.5-5.0 [facility] Comment on above: Performed By: #### M MERLE CHM7, HFP ####[facility] (DEFAULT)[address] [place] [address] ALP [Catalytic activity/Vol] 115 U/L Normal 32-126 [facility] Comment on above: Performed By: #### M MERLE CHM7, HFP ####[facility] (DEFAULT)[address] [facility] [address] ALT [Catalytic activity/Vol] 25 U/L Normal 10-52 [facility] Comment on above: Performed By: #### M MERLE CHM7, HFP ####[facility] (DEFAULT)[address] [place] [address] AST [Catalytic activity/Vol] 31 U/L Normal 10-39 [facility] Comment on above: Performed By: #### M MERLE CHM7, HFP ####[facility] (DEFAULT)[address] [place] [address] Bilirubin [Mass/Vol] 1.0 mg/dL Normal <1.5 [facility] Comment on above: Performed By: #### M MERLE CHM7, HFP ####[facility] (DEFAULT)[address] [place] [address] Bilirubin.indirect [Mass/Vol] 0.3 mg/dL High <0.3 [facility] Comment on above: Performed By: #### M MERLE CHM7, HFP ####[facility] (DEFAULT)[address] [place] [address] Protein [Mass/Vol] 6.3 g/dL Low 6.4-8.3 [facility] Comment on above: Performed By: #### M TJ BLOOM7, HFP ####[facility] (DEFAULT)[address] [place] [address] MAGNESIUMon 09-06-2023 Interpretation and review of laboratory results Normal [facility] Magnesium [Mass/Vol] 2.0 mg/dL 1.6 - 2 .6 mg/dL [facility] Magnesium [Mass/Vol] 2.0 mg/dL Normal 1.6-2.6 [facility] Comment on above: Performed By: #### TJ RAMÍREZ7, HFP ####[facility] (DEFAULT)[address] [place] [address] No Panel Informationon 09-06 Interpretation and review of laboratory results Abnormal [facility] TACROLIMUS LEVEL, TROUGH (NE E DRUG LEVEL)on 09-06-2023 Interpretation and review of laboratory results Normal [facility] Tacrolimus (Bld) [Mass/Vol] 6.7 ng/mL [facility] Tacrolimus, Trough 6.7 ng/mL Normal [facility] Susana ow Transplant: 4.0-12.0, Therapeutic: 5.0-15.0 [facility] Comment on above: Order Comment: Pleas e draw at specified interval PRIOR to dose. Do not hold dose to wait for level. Specimens batched twice per day, (M-F) and once per day weekendsMethod performed is a chemiluminescent microparticle immunoasssay on the [employer] i2000.The range is based on experience at [facility] and users should be aware that target concentrations vary widely depending on concomitant therapy, time post-transplant, and desired degree of immunosuppression. Performed By: #### T ACRO ####[facility] (DEFAULT)[address] [place] [address] CBC,PLATELETSon 09-05-2023 Hematocrit (Bld) [Volume fraction] 35.6 % Low 39.6-48.8 [facility] Comment on above: Performed By: #### H EMOGC ####[facility] (DEFAULT)[address] [facility] [place] [address] Hemoglobin (Bld) [Mass/Vol] 11.4 g/dL Low 13.4-16.8 [facility] Comment on above: Performed By: #### H EMOGC ####[facility] (DEFAULT)[address] [facility] [place] [address] MCV (RBC) [Entitic vol] 86.0 fL Normal 79.0-94.5 [facility] Comment on above: Performed By: #### H EMOGC ####[facility] (DEFAULT)[address] [facility] [place] [address] Mean Cell Hgb 27.5 pg Normal 26.1-33.3 [facility] Comment on above: Performed By: #### H EMOGC ####[facility] (DEFAULT)[address] [facility] [place] [address] Mean Cell Hgb Conc 32.0 g/dL Normal 31.9-36.5 [facility] Comment on above: Performed By: #### H EMOGC ####[facility] (DEFAULT)[address] [facility] [place] [address] Platelet mean volume (Bld) [Entitic vol] 10.0 fL Normal 8.7-12.3 [facility] Comment on above: Performed By: #### H EMOGC ####[facility] (DEFAULT)[address] [facility] [place] [address] Platelets (Bld) [#/Vol] 170 10*3/uL Normal 146-337 [facility] Comment on above: Performed By: #### H EMOGC ####[facility] (DEFAULT)[address] [facility] [place] [address] RBC (Bld) [#/Vol] 4.14 10*6/uL Low 4.38-5.83 [facility] Comment on above: Performed By: #### [facility] ####[facility] (DEFAULT)[address] [facility] [place] [address] RBC Distribution 13.5 % Normal 10.9-14.[address] [facility] Comment on above: Performed By: #### [facility] ####[facility] (DEFAULT)[address] [facility] [place] [address] WBC (Bld) [#/Vol] 4.24 10*3/uL Normal 3.73-10.10 [facility] Comment on above: Performed By: #### [facility] ####[facility] (DEFAULT)[address] [place] [address] Erythrocyte distribution width (RBC) [Ratio] 13.5 % 10.9 - 14.3 % [facility] Hematocrit (Bld) [Volume fraction] 35.6 % Low 39.6 - 48.8 % [facility] Hemoglobin (Bld) [Mass/Vol] 11.4 g/dL Low 13.4 - 16.8 g/dL [facility] Interpretation and review of laboratory results Abnormal [facility] MCH (RBC) [Entitic mass] 27.5 pg 26.1 - 33.3 pg [facility] MCHC (RBC) [Mass/Vol] 32.0 g/dL 31.9 - 36.5 g/dL [facility] MCV (RBC) [Entitic vol] 86.0 fL 79.0 - 94.5 fL [facility] Platelet mean volume (Bld) [Entitic vol] 10.0 fL 8.7 - 12.3 fL [facility] Platelets (Bld) [#/Vol] 170 10*3/uL 146 - 337 K/uL [facility] RBC (Bld) [#/Vol] 4.14 10*6/uL Low [facility] WBC (Bld) [#/Vol] 4.24 10*3/uL 3.73 - 10. 10 K/uL [facility] CHEM 7 (LYTES,BUN,CREA,GLUC) on 09-05-2023 Anion gap [Moles/Vol] 12 mmol/L Normal 7-17 [facility] Comment on above: Performed By: #### H FP, CHM7, MGO ####[facility] (DEFAULT)[address] [facility] [place] [address] Chloride [Moles/Vol] 107 mmol/L Normal 98-108 [facility] Comment on above: Performed By: #### H FP, CHM7, MGO ####[facility] (DEFAULT)[address] [facility] [place] [address] CO2 [Moles/Vol] 20 mmol/L Low 21-31 [facility] Comment on above: Performed By: #### H FP, CHM7, MGO ####[facility] (DEFAULT)[address] [facility] [place] [address] Creatinine [Mass/Vol] 1.43 mg/dL High 0.70-1.30 [facility] Comment on above: Performed By: #### H FP, CHM7, MGO ####[facility] (DEFAULT)[address] [facility] [place] [address] GFR/1.73 sq M.predicted among non-blacks MDRD (S/P/Bld) [Vol rate/Area] 59 mL/min/{1.73_m2} Low >=60 [facility] Comment on above: Result Comment: Repo rted eGFR is based on the CKD-EPI 2020 equation using creatinine, age, and sex. Performed By: #### H FP, CHM7, MGO ####[facility] (DEFAULT)[address] [facility] [place] [address] Glucose [Mass/Vol] 111 mg/dL High 70-99 [facility] Comment on above: Performed By: #### H FP, CHM7, MGO ####[facility] (DEFAULT)[address] [place] [address] Osmolality [Osmolality] 286 mosm/kg Normal 278-305 [facility] Comment on above: Performed By: #### H ANTWAN, CHM7, MGO ####[facility] (DEFAULT)[address] [place] [address] Potassium [Moles/Vol] 4.2 mmol/L Normal 3.5-5.0 [facility] Comment on above: Performed By: #### H ANTWAN, CHM7, MGO ####[facility] (DEFAULT)[address] [place] [address] Sodium [Moles/Vol] 135 mmol/L Normal 135-145 [facility] Comment on above: Performed By: #### Lydia MONCADA CHM7, MGO ####[facility] (DEFAULT)[address] [place] [address] Urea nitrogen [Mass/Vol] 18 mg/dL Normal 7-25 [facility] Comment on above: Performed By: #### H ANTWAN, CHM7, MGO ####[facility] (DEFAULT)[address] [place] [address] Urea nitrogen/Creatinine [Mass ratio] 13 mg/mg Normal [facility] Comment on above: Performed By: #### Lydia MONCADA CHM7, MGO ####[facility] (DEFAULT)[address] [place] [address] Anion gap [Moles/Vol] 12 mmol/L 7 - 17 mmol/L [facility] Chloride [Moles/Vol] 107 mmol/L 98 - 10 8 mmol/L [facility] CO2 [Moles/Vol] 20 mmol/L Low 21 - 31 mmol/L [facility] Creatinine [Mass/Vol] 1.43 mg/dL High 0.70 - 1.30 mg/dL [facility] eGFR, CKD-EPI, Male 60 Low - PINF [facility] Glucose [Mass/Vol] 111 mg/dL High 70 - 99 mg/dL [facility] Osmolality Calc [Osmolality] 286 [facility] Potassium [Moles/Vol] 4.2 mmol/L 3.5 - 5.0 mmol/L [facility] Sodium [Moles/Vol] 135 mmol/L 135 - 145 mmol/L [facility] Urea nitrogen [Mass/Vol] 18 mg/dL 7 - 25 mg/dL [facility] Urea nitrogen/Creatinine [Mass ratio] 13 mg/mg [facility] CONTINUOUS CARDIAC MONITORIN G STRIPon 09-05-2023 [facility] HEPATIC FUNCTION PANELon Albumin [Mass/Vol] 2.8 g/dL Low 3.5-5.0 [facility] Comment on above: Performed By: #### H NATHANIEL MONCADA, MGO ####[facility] (DEFAULT)[address] [facility] [place] [address] ALP [Catalytic activity/Vol] 103 U/L Normal 32-126 [facility] Comment on above: Performed By: #### H NATHANIEL MONCADA, MGO ####[facility] (DEFAULT)[address] [facility] [place] [address] ALT [Catalytic activity/Vol] 26 U/L Normal 10-52 [facility] Comment on above: Performed By: #### H NATHANIEL MONCADA, MGO ####[facility] (DEFAULT)[address] [facility] [place] [address] AST [Catalytic activity/Vol] 38 U/L Normal 10-39 [facility] Comment on above: Performed By: #### H ANTWAN, CHM7, MGO ####[facility] (DEFAULT)[address] [facility] [place] [address] Bilirubin [Mass/Vol] 0.9 mg/dL Normal <1.5 [facility] Comment on above: Performed By: #### H FP, CHM7, MGO ####[facility] (DEFAULT)[address] [place] [address] Bilirubin.indirect [Mass/Vol] 0.1 mg/dL Normal <0.3 [facility] Comment on above: Performed By: #### H FP, CHM7, MGO ####[facility] (DEFAULT)[address] [facility] [place] [address] Protein [Mass/Vol] 6.1 g/dL Low 6.4-8.3 [facility] Comment on above: Performed By: #### H FP, CHM7, MGO ####[facility] (DEFAULT)[address] [facility] [place] [address] Albumin [Mass/Vol] 2.8 g/dL Low 3.5 - 5.0 g/dL [facility] ALP [Catalytic activity/Vol] 103 U/L 32 - 126 U/L [facility] ALT [Catalytic activity/Vol] 26 U/L 10 - 52 U/L [facility] AST [Catalytic activity/Vol] 38 U/L 10 - 39 U/L [facility] Bilirubin [Mass/Vol] 0.9 mg/dL [facility] - 1.[facility] mg/dL [facility] Bilirubin.direct [Mass/Vol] 0.1 mg/dL NINF - 0.3 mg/dL [facility] Protein [Mass/Vol] 6.1 g/dL Low 6.4 - 8.3 g/dL [facility] HISTOPLASMA ANTIGEN, FLUIDon 09-05-2023 FH SOURCE BAL RML [facility] Histo FLD interpretation Negative [facility] Histoplasma Antigen, FLUID Not detected ng/mL [facility] HISTOPLASMA CAPSULATUM/BLAST OMYCES SPECIES,PCR FLUIDon 09-05-2023 HISTO/BLASTO RESULT Negative Not Applicable [facility] Specimen source Nom (Unsp spec) BAL RML [facility] IMMUNOPHENOTYPING, TISSUE/FL UIDon 09-05-2023 BKR DX CODE Use Ordering [facility] Flow Interpretation See Comment [facility] Flow Interpreted by: Yossi Perla MD, PhD [facility] MAGNESIUMon 09-05-2023 Magnesium [Mass/Vol] 1.7 mg/dL Normal 1.6-2.6 [facility] Comment on above: Performed By: #### H FP, CHM7, MGO ####[facility] (DEFAULT)[address] [place] [address] Interpretation and review of laboratory results Normal [facility] Magnesium [Mass/Vol] 1.7 mg/dL 1.6 - 2 .6 mg/dL [facility] No Panel Informationon 09-05 Interpretation and review of laboratory results Abnormal [facility] TACROLIMUS LEVEL, TROUGH (NE E DRUG LEVEL)Ordered By: Raymundo Mehta on 09-05-2023 Interpretation and review of laboratory results Normal [facility] Tacrolimus (Bld) [Mass/Vol] 5.3 ng/mL [facility] TACROLIMUS LEVEL, TROUGH (NE E DRUG LEVEL)on 09-05-2023 Tacrolimus, Trough 5.3 ng/mL Normal [facility] Susana ow Transplant: 4.0-12.0, Therapeutic: 5.0-15.0 [facility] Comment on above: Order Comment: Pleas e draw at specified interval PRIOR to dose. Do not hold dose to wait for level. Specimens batched twice per day, (M-F) and once per day weekendsMethod performed is a chemiluminescent microparticle immunoasssay on the [employer] i2000.The range is based on experience at [facility] and users should be aware that target concentrations vary widely depending on concomitant therapy, time post-transplant, and desired degree of immunosuppression. Performed By: #### T ACRO ####[facility] (DEFAULT)[address] [place] [address] ARTERIAL BLOOD GAS (FULL GOSS EL)on 09-04-2023 Base Excess -1.2 mmol/L Normal -3.0-3.0 [facility] Comment on above: Performed By: #### G YASMINE ####[facility] (DEFAULT)[address] [place] [address] Carboxyhemoglobin 0.7 % Normal <=1.5 [facility] Comment on above: Performed By: #### G ASALL ####[facility] (DEFAULT)[address] [place] [address] Glucose [Mass/Vol] 159 mg/dL High 70-99 [facility] Comment on above: Performed By: #### G ASALL ####[facility] (DEFAULT)[address] [facility] [place] [address] HCO3 (Bld) [Moles/Vol] 22 mmol/L Normal 22-28 [facility] Comment on above: Performed By: #### G YASMINE ####[facility] (DEFAULT)[address] [place] [address] Hematocrit (Bld) [Volume fraction] 38.0 % Low 40.2-50.4 [facility] Comment on above: Performed By: #### G ASALL ####[facility] (DEFAULT)[address] [place] [address] Hemoglobin (Bld) [Mass/Vol] 12.6 g/dL Low 13.4-16.8 [facility] Comment on above: Performed By: #### G ASALL ####[facility] (DEFAULT)[address] [place] [address] Ionized Calcium, Whole Blood 4.79 mg/dL Normal 4.60-5.30 [facility] Comment on above: Performed By: #### G ASALL ####[facility] (DEFAULT)[address] [place] [address] Lactate, Whole Blood 2.0 mmol/L High 0.5-1.6 [facility] Comment on above: Performed By: #### Vale UNDERWOOD ####[facility] (DEFAULT)[address] [facility] [place] [address] Methemoglobin 0.0 % Normal <=1.5 [facility] Comment on above: Performed By: #### Vale UNDERWOOD ####[facility] (DEFAULT)[address] [facility] [place] [address] Oxyhemoglobin 91 % Low 94-98 [facility] Comment on above: Performed By: #### Vale UNDERWOOD ####[facility] (DEFAULT)[address] [place] [address], [place] [address] pCO2 30 mm Hg Low 32-48 [facility] Comment on above: Performed By: #### Vale UNDERWOOD ####[facility] (DEFAULT)[address] [facility] [place] [address] pH (Bld) 7.48 [pH] High 7.35-7.45 [facility] Comment on above: Performed By: #### Vale UNDERWOOD ####[facility] (DEFAULT)[address] [place] [address], [place] [address] pO2 62 mm Hg Low 83-108 [facility] Comment on above: Performed By: #### Vale UNDERWOOD ####[facility] (DEFAULT)[address] [facility] [place] [address] Potassium [Moles/Vol] 4.2 mmol/L Normal 3.5-5.0 [facility] Comment on above: Performed By: #### Vale UNDERWOOD ####[facility] (DEFAULT)[address] [place] [address], [place] [address] sO2 92 % Low 94-98 [facility] Comment on above: Performed By: #### Vale UNDERWOOD ####[facility] (DEFAULT)[address] [facility] [place] [address] Sodium [Moles/Vol] 130 mmol/L Low 135-145 [facility] Comment on above: Performed By: #### G YASMINE ####[facility] (DEFAULT)[address] [place] [address] Specimen type Nom (Spec) Arterial Normal [facility] Comment on above: Performed By: #### G YASMINE ####[facility] (DEFAULT)[address] [place] [address] Base excess Calc (Bld) [Moles/Vol] -1.2000 mmol/L -3.0 - 3.0 mmol/L [facility] Calcium.ionized (Bld) [Mass/Vol] 4.79 mg/dL 4.60 - 5.30 mg/dL [facility] Carboxyhemoglobin (Bld) [Mass fraction] 0.7 % NINF - 1.5 % [facility] CO2 (Bld) [Partial pressure] 30 mm[Hg] Low [facility] Glucose [Mass/Vol] 159 mg/dL High 70 - 99 mg/dL [facility] HCO3 (Bld) [Moles/Vol] 22 mmol/L 22 - 28 mmol/L [facility] Hematocrit (Bld) [Volume fraction] 38.0 % Low 40.2 - 50.4 % [facility] Hemoglobin (Bld) [Mass/Vol] 12.6 g/dL Low 13.4 - 16.8 g/dL [facility] Interpretation and review of laboratory results Abnormal [facility] Lactate [Moles/Vol] 2.0 mmol/L High 0.5 - 1. 6 mmol/L [facility] Methemoglobin (Bld) [Mass fraction] 0.0 % NINF - 1.5 % [facility] Oxygen (Bld) [Partial pressure] 62 mm[Hg] Low [facility] Oxygen saturation in Blood 92 % Low 94 - 98 % [facility] Oxyhemoglobin 91 % Low 94 - 98 % [facility] pH (Bld) 7.48 [pH] High 7.35 - 7.45 [facility] Potassium [Moles/Vol] 4.2 mmol/L 3.5 - 5.0 mmol/L [facility] Sodium [Moles/Vol] 130 mmol/L Low 135 - 145 mmol/L [facility] Specimen source Nom (Unsp spec) Arterial [facility] Bacteria identified Respirat ory culture Nom (Unsp spec)on 09-04-2023 Bacteria identified Cx Nom (Unsp spec) NO GROWTH DAY 2 OF 2 [facility] Microscopic observation Other stain Nom (Unsp spec) Cytocentrifuge preparation [facility] Microscopic observation Other stain Nom (Unsp spec) Neutrophils, Rare [facility] Microscopic observation Other stain Nom (Unsp spec) Red Blood Cells Present [facility] Microscopic observation Other stain Nom (Unsp spec) No organisms seen [facility] Bacteria identified Respirat ory culture Nom (Unsp spec)Ordered By: Jose Salgado on 09-04-2023 Bacteria identified Cx Nom (Unsp spec) NO GROWTH DAY 2 OF 2 [facility] Microscopic observation Other stain Nom (Unsp spec) Cytocentrifuge preparation [facility] Microscopic observation Other stain Nom (Unsp spec) Neutrophils, Moderate [facility] Microscopic observation Other stain Nom (Unsp spec) Red Blood Cells Present [facility] Microscopic observation Other stain Nom (Unsp spec) No organisms seen [facility] CBC,PLATELETSon 09-04-2023 Hematocrit (Bld) [Volume fraction] 38.7 % Low 39.6-48.8 [facility] Comment on above: Performed By: #### [facility] ####[facility] (DEFAULT)[address] [place] [address] Hemoglobin (Bld) [Mass/Vol] 12.3 g/dL Low 13.4-16.8 [facility] Comment on above: Performed By: #### H [facility] ####[facility] (DEFAULT)[address] [place] [address] MCV (RBC) [Entitic vol] 87.8 fL Normal 79.0-94.5 [facility] Comment on above: Performed By: #### H EMOGC ####[facility] (DEFAULT)[address] [place] [address] Mean Cell Hgb 27.9 pg Normal 26.1-33.3 [facility] Comment on above: Performed By: #### H EMOGC ####[facility] (DEFAULT)[address] [place] [address] Mean Cell Hgb Conc 31.8 g/dL Low 31.9-36.5 [facility] Comment on above: Performed By: #### H EMOGC ####[facility] (DEFAULT)[address] [facility] [place] [address] Platelet mean volume (Bld) [Entitic vol] 9.8 fL Normal 8.7-12.3 [facility] Comment on above: Performed By: #### H EMOGC ####[facility] (DEFAULT)[address] [place] [address] Platelets (Bld) [#/Vol] 173 10*3/uL Normal 146-337 [facility] Comment on above: Performed By: #### H EMOGC ####[facility] (DEFAULT)[address] [place] [address] RBC (Bld) [#/Vol] 4.41 10*6/uL Normal 4.38-5.83 [facility] Comment on above: Performed By: #### H EMOGC ####[facility] (DEFAULT)[address] [place] [address] RBC Distribution 13.2 % Normal 10.9-14.[address] [facility] Comment on above: Performed By: #### H EMOGC ####[facility] (DEFAULT)[address] [place] [address] WBC (Bld) [#/Vol] 4.57 10*3/uL Normal 3.73-10.10 [facility] Comment on above: Performed By: #### H [facility] ####[facility] (DEFAULT)[address] [place] [address] Erythrocyte distribution width (RBC) [Ratio] 13.2 % 10.9 - 14.3 % [facility] Hematocrit (Bld) [Volume fraction] 38.7 % Low 39.6 - 48.8 % [facility] Hemoglobin (Bld) [Mass/Vol] 12.3 g/dL Low 13.4 - 16.8 g/dL [facility] Interpretation and review of laboratory results Abnormal [facility] MCH (RBC) [Entitic mass] 27.9 pg 26.1 - 33.3 pg [facility] MCHC (RBC) [Mass/Vol] 31.8 g/dL Low 31.9 - 36.5 g/dL [facility] MCV (RBC) [Entitic vol] 87.8 fL 79.0 - 94.5 fL [facility] Platelet mean volume (Bld) [Entitic vol] 9.8 fL 8.7 - 12.3 fL [facility] Platelets (Bld) [#/Vol] 173 10*3/uL 146 - 337 K/uL [facility] RBC (Bld) [#/Vol] 4.41 10*6/uL [facility] WBC (Bld) [#/Vol] 4.57 10*3/uL 3.73 - 10. 10 K/uL [facility] CHEM 7 (LYTES,BUN,CREA,GLUC) on 09-04-2023 Anion gap [Moles/Vol] 16 mmol/L Normal 7-17 [facility] Comment on above: Performed By: #### M GO, CHM7, [facility] ####[facility] (DEFAULT)[address] [place] [address] Chloride [Moles/Vol] 104 mmol/L Normal 98-108 [facility] Comment on above: Performed By: #### NATHANIEL RAMÍREZ, HFP ####[facility] (DEFAULT)[address] [place] [address] CO2 [Moles/Vol] 18 mmol/L Low 21-31 [facility] Comment on above: Performed By: #### NATHANIEL RAMÍREZ, HFP ####[facility] (DEFAULT)[address] [facility] [place] [address] Creatinine [Mass/Vol] 1.22 mg/dL Normal 0.70-1.30 [facility] Comment on above: Performed By: #### NATHANIEL RAMÍREZ, HFP ####[facility] (DEFAULT)[address] [facility] [place] [address] GFR/1.73 sq M.predicted among non-blacks MDRD (S/P/Bld) [Vol rate/Area] 71 mL/min/{1.73_m2} Normal >=60 [facility] Comment on above: Result Comment: Repo rted eGFR is based on the CKD-EPI 2020 equation using creatinine, age, and sex. Performed By: #### NATHANIEL RAMÍREZ, HFP ####[facility] (DEFAULT)[address] [facility] [place] [address] Glucose [Mass/Vol] 124 mg/dL High 70-99 [facility] Comment on above: Performed By: #### NATHANIEL RAMÍREZ, HFP ####[facility] (DEFAULT)[address] [facility] [place] [address] Osmolality [Osmolality] 284 mosm/kg Normal 278-305 [facility] Comment on above: Performed By: #### NATHANIEL RAMÍREZ, HFP ####[facility] (DEFAULT)[address] [facility] [place] [address] Potassium [Moles/Vol] 3.9 mmol/L Normal 3.5-5.0 [facility] Comment on above: Performed By: #### Rod BLOOM, CHM7, HFP ####[facility] (DEFAULT)[address] [facility] [place] [address] Sodium [Moles/Vol] 134 mmol/L Low 135-145 [facility] Comment on above: Performed By: #### M MERLE CHM7, HFP ####[facility] [facility] (DEFAULT)[address] [facility] [place] [address] Urea nitrogen [Mass/Vol] 15 mg/dL Normal 7-25 [facility] Comment on above: Performed By: #### M MERLE CHM7, HFP ####[facility] (DEFAULT)[address] [facility] [place] [address] Urea nitrogen/Creatinine [Mass ratio] 12 mg/mg Normal [facility] Comment on above: Performed By: #### Rod BLOOM CHM7, HFP ####[facility] (DEFAULT)[address] [facility] [place] [address] Anion gap [Moles/Vol] 16 mmol/L 7 - 17 mmol/L [facility] Chloride [Moles/Vol] 104 mmol/L 98 - 10 8 mmol/L [facility] CO2 [Moles/Vol] 18 mmol/L Low 21 - 31 mmol/L [facility] Creatinine [Mass/Vol] 1.22 mg/dL 0.70 - 1.30 mg/dL [facility] eGFR, CKD-EPI, Male 71 - PINF [facility] Glucose [Mass/Vol] 124 mg/dL High 70 - 99 mg/dL [facility] Osmolality Calc [Osmolality] 284 [facility] Potassium [Moles/Vol] 3.9 mmol/L 3.5 - 5.0 mmol/L [facility] Sodium [Moles/Vol] 134 mmol/L Low 135 - 145 mmol/L [facility] Urea nitrogen [Mass/Vol] 15 mg/dL 7 - 25 mg/dL [facility] Urea nitrogen/Creatinine [Mass ratio] 12 mg/mg [facility] CMV PCR,FLUIDS,URINE,EYE ETC on 09-04-2023 Specimen source Nom (Unsp spec) BAL LLL [facility] Specimen source Nom (Unsp spec) BAL RML [facility] HEPATIC FUNCTION PANELon Albumin [Mass/Vol] 3.0 g/dL Low 3.5-5.0 [facility] Comment on above: Performed By: #### M MERLE CHM7, HFP ####[facility] (DEFAULT)[address] [place] [address] ALP [Catalytic activity/Vol] 112 U/L Normal 32-126 [facility] Comment on above: Performed By: #### M MERLE CHM7, HFP ####[facility] (DEFAULT)[address] [place] [address] ALT [Catalytic activity/Vol] 22 U/L Normal 10-52 [facility] Comment on above: Performed By: #### M MERLE CHM7, HFP ####[facility] (DEFAULT)[address] [place] [address] AST [Catalytic activity/Vol] 30 U/L Normal 10-39 [facility] Comment on above: Performed By: #### M MERLE CHM7, HFP ####[facility] (DEFAULT)[address] [place] [address] Bilirubin [Mass/Vol] 1.2 mg/dL Normal <1.5 [facility] Comment on above: Performed By: #### M MERLE CHM7, HFP ####[facility] (DEFAULT)[address] [place] [address] Bilirubin.indirect [Mass/Vol] 0.4 mg/dL High <0.3 [facility] Comment on above: Performed By: #### M GO, CHM7, HFP ####[facility] (DEFAULT)[address] [place] [address] Protein [Mass/Vol] 6.4 g/dL Normal 6.4-8.3 [facility] Comment on above: Performed By: #### M NATHANIEL BLOOM, HFP ####[facility] (DEFAULT)[address] [place] [address] Albumin [Mass/Vol] 3.0 g/dL Low 3.5 - 5.0 g/dL [facility] ALP [Catalytic activity/Vol] 112 U/L 32 - 126 U/L [facility] ALT [Catalytic activity/Vol] 22 U/L 10 - 52 U/L [facility] AST [Catalytic activity/Vol] 30 U/L 10 - 39 U/L [facility] Bilirubin [Mass/Vol] 1.2 mg/dL NINF - 1.5 mg/dL [facility] Bilirubin.direct [Mass/Vol] 0.4 mg/dL High NINF - 0.3 mg/dL [facility] Protein [Mass/Vol] 6.4 g/dL 6.4 - 8.3 g/dL [facility] LEGIONELLA PCRon 09-04-2023 Legionella sp rRNA Probe Ql (Unsp spec) Negative Not Applicable [facility] Specimen source Nom (Unsp spec) BAL RML [facility] - Microbiology an d Antimicrobial susceptibilityon 09-04-2023 CMV DNA ESTELITA+probe Ql (Unsp spec) Negative Negative [facility] MAGNESIUMon 09-04-2023 Magnesium [Mass/Vol] 1.4 mg/dL Low 1.6-2.6 [facility] Comment on above: Performed By: #### NATHANIEL RAMÍREZ, HFP ####[facility] (DEFAULT)[address] [place] [address] Magnesium [Mass/Vol] 1.4 mg/dL Low 1.6 - 2 .6 mg/dL [facility] No Panel Informationon 09-04 Annotation comment [Interpretation] Narrative DNR [facility] PN Report Status DNR [facility] Pneumocystis jiroveci,PCR result Negative Not Applicable [facility] Interpretation and review of laboratory results Abnormal [facility] PNEUMOCYSTIS JIROVECI,PCRon 09-04-2023 Specimen source Nom (Unsp spec) BAL LLL [facility] Specimen source Nom (Unsp spec) BAL RML [facility] Portable XR Chest Viewson RADIOLOGY RADIOLOGY [facility] Radiology Study observation (narrative) [facility] Portable XR Chest ViewsOrder ed By: Joanie Nugent on 09-04-2023 [facility] Work Phone: TACROLIMUS LEVEL, TROUGH (NE E DRUG LEVEL)on 09-04-2023 Interpretation and review of laboratory results Abnormal [facility] Tacrolimus (Bld) [Mass/Vol] 3.6 ng/mL Low [facility] Tacrolimus, Trough 3.6 ng/mL Low Bone Susana ow Transplant: 4.0-12.0, Therapeutic: 5.0-15.0 [facility] Comment on above: Order Comment: Pleas e draw at specified interval PRIOR to dose. Do not hold dose to wait for level. Specimens batched twice per day, (M-F) and once per day weekendsMethod performed is a chemiluminescent microparticle immunoasssay on the [employer] i2000.The range is based on experience at [facility] and users should be aware that target concentrations vary widely depending on concomitant therapy, time post-transplant, and desired degree of immunosuppression. Performed By: #### T ACRO ####[facility] (DEFAULT)[address] [place] [id number] XR CHEST PORTABLEon 09-04-20 23 XR CHEST PORTABLE Normal [facility] ASPERGILLUS ANTIGEN, BALon 1 Galactomannan Ag IA Qn (Unsp spec) <0.500 NINF [facility] Galactomannan Ag IA Qn (Unsp spec) <0.500 NINF [facility] BAL CONSULTOrdered By: Noa Peralta on 09-03-2023 ALVEOLAR MACROPHAGES 32 % [facility] Work Phone: Bal comments Correlation with microbiology stains and cultures is recommended. [facility] Work Phone: Bal Diff Quik Stain Quality Check Acceptable [facility] Work Phone: BKR BAL INTERPRETATION Cellular specimen comprised of alveolar macrophages and small lymphocytes. No definitive microorganisms are observed. Moderate degenerative changes. [facility] Work Phone: BKR DX CODE Use Ordering [facility] Work Phone: Eosinophils Patterson stain Ql (Unsp spec) 0 % [facility] Work Phone: Lymphocytes/100 WBC (Bld) 57 % [facility] Work Phone: Neutrophils/100 WBC Manual cnt (Bronch spec) 11 % [facility] Work Phone: Pathologist review Jame (Unsp spec) [Interp] Leonardo Peralta MD [facility] Work Phone: [facility] Work Phone: BAL CONSULTon 09-03-2023 ALVEOLAR MACROPHAGES 33 % [facility] Bal comments Correlation with microbiology stains and cultures is recommended. Correlation with viral studies is recommended. [facility] Bal Diff Quik Stain Quality Check Acceptable [facility] BKR BAL INTERPRETATION Cellular specimen comprised of alveolar macrophages and small lymphocytes. No definitive microorganisms are observed. Rare degenerating cells with changes suggestive of viral cytopathic effect are noted. Moderate degenerative changes. [facility] BKR DX CODE Use Ordering [facility] Eosinophils Patterson stain Ql (Unsp spec) 0 % [facility] Lymphocytes/100 WBC (Bld) 49 % [facility] Neutrophils/100 WBC Manual cnt (Bronch spec) 18 % [facility] Pathologist review Jaem (Unsp spec) [Interp] Leonardo Peratla MD [facility] BRONCHOSCOPYon 09-03-2023 LAB, [facility] CBC,PLATELETSon 09-03-2023 Hematocrit (Bld) [Volume fraction] 39.6 % Normal 39.6-48.8 [facility] Comment on above: Performed By: #### H EMOGC ####[facility] (DEFAULT)[address] [place] [address] Hemoglobin (Bld) [Mass/Vol] 12.8 g/dL Low 13.4-16.8 [facility] Comment on above: Performed By: #### H EMOGC ####[facility] (DEFAULT)[address] [place] [address] MCV (RBC) [Entitic vol] 85.9 fL Normal 79.0-94.5 [facility] Comment on above: Performed By: #### H EMOGC ####[facility] (DEFAULT)[address] [place] [address] Mean Cell Hgb 27.8 pg Normal 26.1-33.3 [facility] Comment on above: Performed By: #### H EMOGC ####[facility] (DEFAULT)[address] [place] [address] Mean Cell Hgb Conc 32.3 g/dL Normal 31.9-36.5 [facility] Comment on above: Performed By: #### H EMOGC ####[facility] (DEFAULT)[address] [place] [address] Platelet mean volume (Bld) [Entitic vol] 9.4 fL Normal 8.7-12.3 [facility] Comment on above: Performed By: #### H EMOGC ####[facility] (DEFAULT)[address] [place] [address] Platelets (Bld) [#/Vol] 222 10*3/uL Normal 146-337 [facility] Comment on above: Performed By: #### H EMO ####[facility] (DEFAULT)[address] [facility] [place] [address] RBC (Bld) [#/Vol] 4.61 10*6/uL Normal 4.38-5.83 [facility] Comment on above: Performed By: #### H EMO ####[facility] (DEFAULT)[address] [facility] [place] [address] RBC Distribution 13.4 % Normal 10.9-14.[address] [facility] Comment on above: Performed By: #### H EMO ####[facility] (DEFAULT)[address] [facility] [place] [address] WBC (Bld) [#/Vol] 4.36 10*3/uL Normal 3.73-10.10 [facility] Comment on above: Performed By: #### H EMO ####[facility] (DEFAULT)[address] [place] [address] Erythrocyte distribution width (RBC) [Ratio] 13.4 % 10.9 - 14.3 % [facility] Hematocrit (Bld) [Volume fraction] 39.6 % 39.6 - 48.8 % [facility] Hemoglobin (Bld) [Mass/Vol] 12.8 g/dL Low 13.4 - 16.8 g/dL [facility] Interpretation and review of laboratory results Abnormal [facility] MCH (RBC) [Entitic mass] 27.8 pg 26.1 - 33.3 pg [facility] MCHC (RBC) [Mass/Vol] 32.3 g/dL 31.9 - 36.5 g/dL [facility] MCV (RBC) [Entitic vol] 85.9 fL 79.0 - 94.5 fL [facility] Platelet mean volume (Bld) [Entitic vol] 9.4 fL 8.7 - 12.3 fL [facility] Platelets (Bld) [#/Vol] 222 10*3/uL 146 - 337 K/uL [facility] RBC (Bld) [#/Vol] 4.61 10*6/uL [facility] WBC (Bld) [#/Vol] 4.36 10*3/uL 3.73 - 10. 10 K/uL [facility] CHEM 7 (LYTES,BUN,CREA,GLUC) on 09-03-2023 Anion gap [Moles/Vol] 12 mmol/L Normal 7-17 [facility] Comment on above: Performed By: #### NATHANIEL RAMÍREZ, HFP ####[facility] (DEFAULT)[address] [facility] [place] [address] Chloride [Moles/Vol] 104 mmol/L Normal 98-108 [facility] Comment on above: Performed By: #### NATHANIEL RAMÍREZ, HFP ####[facility] (DEFAULT)[address] [facility] [place] [address] CO2 [Moles/Vol] 24 mmol/L Normal 21-31 [facility] Comment on above: Performed By: #### NATHANIEL RAMÍREZ, HFP ####[facility] (DEFAULT)[address] [facility] [place] [address] Creatinine [Mass/Vol] 1.20 mg/dL Normal 0.70-1.30 [facility] Comment on above: Performed By: #### NATHANIEL RAMÍREZ, HFP ####[facility] (DEFAULT)[address] [facility] [place] [address] GFR/1.73 sq M.predicted among non-blacks MDRD (S/P/Bld) [Vol rate/Area] 73 mL/min/{1.73_m2} Normal >=60 [facility] Comment on above: Result Comment: Repo rted eGFR is based on the CKD-EPI 2020 equation using creatinine, age, and sex. Performed By: #### NATHANIEL RAMÍREZ, HFP ####[facility] (DEFAULT)[address] [place] [address] Glucose [Mass/Vol] 112 mg/dL High 70-99 [facility] Comment on above: Performed By: #### NATHANIEL RAMÍREZ, HFP ####[facility] (DEFAULT)[address] [place] [address] Osmolality [Osmolality] 288 mosm/kg Normal 278-305 [facility] Comment on above: Performed By: #### NATHANIEL RAMÍREZ, HFP ####[facility] (DEFAULT)[address] [place] [address] Potassium [Moles/Vol] 4.1 mmol/L Normal 3.5-5.0 [facility] Comment on above: Performed By: #### NATHANIEL RAMÍREZ, HFP ####[facility] (DEFAULT)[address] [place] [address] Sodium [Moles/Vol] 136 mmol/L Normal 135-145 [facility] Comment on above: Performed By: #### NATHANIEL RAMÍREZ, HFP ####[facility] (DEFAULT)[address] [place] [address] Urea nitrogen [Mass/Vol] 17 mg/dL Normal 7-25 [facility] Comment on above: Performed By: #### NATHANIEL RAMÍREZ, HFP ####[facility] (DEFAULT)[address] [place] [address] Urea nitrogen/Creatinine [Mass ratio] 14 mg/mg Normal [facility] Comment on above: Performed By: #### NATHANIEL RAMÍREZ, HFP ####[facility] (DEFAULT)[address] [place] [address] Anion gap [Moles/Vol] 12 mmol/L 7 - 17 mmol/L [facility] Chloride [Moles/Vol] 104 mmol/L 98 - 10 8 mmol/L [facility] CO2 [Moles/Vol] 24 mmol/L 21 - 31 mmol/L [facility] Creatinine [Mass/Vol] 1.20 mg/dL 0.70 - 1.30 mg/dL [facility] eGFR, CKD-EPI, Male 73 - PINF [facility] Glucose [Mass/Vol] 112 mg/dL High 70 - 99 mg/dL [facility] Osmolality Calc [Osmolality] 288 [facility] Potassium [Moles/Vol] 4.1 mmol/L 3.5 - 5.0 mmol/L [facility] Sodium [Moles/Vol] 136 mmol/L 135 - 145 mmol/L [facility] Urea nitrogen [Mass/Vol] 17 mg/dL 7 - 25 mg/dL [facility] Urea nitrogen/Creatinine [Mass ratio] 14 mg/mg [facility] CYTOLOGY, NON-GYNOrdered By: Sherice Jimenez on 09-03-2023 CYTOLOGIC DIAGNOSIS h2pbqTHbSSYkrENbDZHyD6gufxJ nTNGhoTNxB1NvtjmaNUscVY8hKL 0kqVbkoAShaGQiHSXoKuGyd5qhj 161tAZlh5wmIYLTwvgxqKl3q8jr VSYWlD3ad6q3aU01STHapI9zhOB sBVaeesAxWNehnnGgnyAmPxb1RY W4rNcxIgvwdPP7mMAyeVI5DTowc 8QepQaljLpaAFQ0XXCdHhlmQHid eYF6rXWqwZfcaBHcUS0pa2hksAC 5foPrMXJ6oQocdCG0sQbuvoelr5 hbeLH3wPH5OZwrzDX3LGdzMwJgR 1isAMMziE9eF51lV9pjKGJxfKzj KDdcDBEjgSY2HSJ2PTWmg9bmJXC joLBshTAwOsXoRPihYol0b5rnNX KlnY05lGCtrgX7jAeyLYdooAV8T C09FYytm0OeKAPbwIydVMAfvY6n YzIzXGxldmVsbmZjbjIzXGxldmV qlgZtOAbkduUas3ZsxmOhqBA7MR bjupRiiIV0mKrtHOJeC0R3S115Y KmwlyQqtyQhNmVhowc6KBCvcApj bGlzdGxldmVsXGxldmVsbmZjMjN vyGR5GOtnVqPhAnVqkKH3ITptOj OihMQ2BWyubBRglXA0FYaygTS6N Dv2FGr2GGogVXnkSgo7bRgniOS6 INsbtQ5bQJDeA03jTwL4j8qggLC 1nPV8PQqxkZQ5UOgqGpYjN4uwGZ ZpqB9xF22uM8suHSFqdFtmIDyxU FKclNY7EFR0DAErq4pfMRXhfIWi fNVoWcMfAIwxWra3z8awMMGroR4 4sPCxleC3xCdiJA57GSnoz1GsPE XzcVllCJAatF4jZtHuDMglyjSon mZjbjIzXGxldmVsamMwXGxldmVs n5OtpmRxbHI1FQilbuVanJA5kDp iFSKnO9F2H056LEroapFpkjGcHu Tcqpi9MEZmfCtveOhxgPzidtCkW GocqmOahxPfElIawGQ5QLmgCnYz RsGokLR9JVoqEqPxtCN7SSpwhZC vfUN9JWuyjNC2RJm5DGl6KDihCQ cgFrr0tJfijCJ7LGcbiR8qHTEeA 18cNbL0u1iplZV0uWU4TVurnMO4 DYyjXdWnM5kzNAShtX9tV29uN3d uOBJltFhtINzxYOKmyKI8NZU2KO Ljb4zuUEWmhIHpjLFnIpFmUErlT pk0r8hyBDZseS17oQCtdqC0qGus FZ50MCrkf4BmRYDbnCmvYFYxxQ2 mYzIzXGxldmVsbmZjbjIzXGxldm OvglNkLAfwytGtw2UlktKfkJB5N LxvbcXjnLG4pEnvQYKtU8T8W943 JQomvkFtmcXpNmBphwi7LYKmwZv cbGlzdGxldmVsXGxldmVsbmZjMj MbhCL2QTdgNbOpUkEjbRU1VJggD oOqgLU3BUsxhWRtiLG2AMvyjUN4 WPx5YIy4BWvaPSqpYmz7qBgiyCT 1SBpppK3rCIYzF77hOyG9jV67WJ xpuEjkkT40EDFmeNVdcHBuyAI2R IryeIjkcJ04RUTdxEUtPChkh7Ys BROaEgX6DDV8MSTnyRtswV10TEQ jmAPoS660tuTyVXpwAM42ZLEdtO HammIgThWhJKWbrGVxrER0NQYqV U0qpomuDZdhRUtyYHSaxdR0GROs cCOjK4GzHNWhAN4vneknMJS7RBy oUEDqTSY0MgOcGRQyu5Cytlm9Te NanPk3p6guDIVwOCOquSaxp9wxR AL3UBCzkRBmC1utxY9bBZWdKY1w bzrfk6whANipUDtuPEIigOT5axC 9ZKCttRYkB1AcbN0zPROhYVMgta NafRnyyG3cWyavzdRuTYOhUTXLP cTJUa1DG5zPLWrUHU3HJXCeVKIH ALwMRTXGEUJXADnWF5GQWIxLPhF fAUIkGLEjC2vJO8cRS7jaXucqDn VgDMicACBbFiInD5AfEKJectxzD NGuOPMKHD0VZNMGYCNEKq0EGLD6 GMYjghutvAK8CRdgtoJhcIm3oXJ zbCfeiI4xCrociaYzTXGaOKZYrz QCHSzyY98xjxMfX0BzdTTlSHShU RxjJQ79sGWnPHZjzJHtLYn6xR0s CZdqcUyhseIGbKZjdA7ggqqhYHk jZjBccGFyXGxpMFxsczBccGFyfQ == [facility] Work Phone: Case Report [facility] Work Phone: Clinical History s4gyxXEjDADkxWJlOVXo H1lwlrK lCHLrmFJyQ8JylhvlXHavJO9zNR 9zyFvssRDkxSZeDGQvWmLcg0xby 829mKBsl2piTUFCaduxnVk2kGpv J25he5U6AyiyN8weVVPqHQjoFWX hCSuaqAGeENg0GJAilATutuNkHk NgOUSlqWUepZV6FPIjWD4cacjpC EbnSBqzDMJmbwM0AJYavVKwK9Cn DESwPT4moembCCC6RAveKRZuBZR 2UvFsNHPwm7Bfxga1ByMkdNw0c2 gmTLBoJIIfxSvca6pkFLB0LHMpy OHhI7kljG5nMLZvIZ3jvaakt5od WObfXGtxIKWxxNW6jpS5FUAzkQV jU9JrtJ5uFONmMASjdkHjhVgmaN 5cZnMyMFxjZjEgUmVuYWwgdHJhb vXfnKCntO6uCNNoin5= [facility] Work Phone: For Immediate Release to Patient's MyChart? Yes Yes [facility] Work Phone: Gross Description t1ieeYGmUMEvrIPbZHEj G0wqzbK fCQRwhWQhW2XwltueHIbjVQ5bKV 7qsXyavEKawCPdUUUgJiLub3whj 621wMZbx1qlOPUDvbmmmNu3gVnl Q83bg1G0YaklW98vcGRnSJW2SCH bDYUtvNGeQBHxYLW6JAOshSNrO4 bbKYBdBX8noljhVWpdHAbrIJHsw LM5TUQcrPSfD9MvBBHgEAgsQEIq sjg1HbEmLz5keXXxaXohRJllXQT kXHBsYWluXGZzMjAgTExMIEJBTF cuSGZvZJLhyKYnOZa7DDRxeJ6hv APtjeOurUTmvB0urIejKCosXQPc PATKBIOudRgwPOGHUHAzy0AhjJ6 ccGFyXHBhcmRccGFyXHBhcn0= [facility] Work Phone: [facility] Work Phone: HEPATIC FUNCTION PANELon Albumin [Mass/Vol] 3.2 g/dL Low 3.5-5.0 [facility] Comment on above: Performed By: #### M HELEN BLOOMM7, HFP ####[facility] (DEFAULT)[address] [place] [address] ALP [Catalytic activity/Vol] 118 U/L Normal 32-126 [facility] Comment on above: Performed By: #### M HELEN BLOOMM7, HFP ####[facility] (DEFAULT)[address] [place] [address] ALT [Catalytic activity/Vol] 25 U/L Normal 10-52 [facility] Comment on above: Performed By: #### M MERLE CHM7, HFP ####[facility] (DEFAULT)[address] [place] [address] AST [Catalytic activity/Vol] 32 U/L Normal 10-39 [facility] Comment on above: Performed By: #### M NATHANIEL BLOOM, HFP ####[facility] (DEFAULT)[address] [place] [address] Bilirubin [Mass/Vol] 1.0 mg/dL Normal <1.5 [facility] Comment on above: Performed By: #### M NATHANIEL BLOOM, HFP ####[facility] (DEFAULT)[address] [place] [address] Bilirubin.indirect [Mass/Vol] 0.3 mg/dL High <0.3 [facility] Comment on above: Performed By: #### NATHANIEL RAMÍREZ, HFP ####[facility] (DEFAULT)[address] [place] [address] Protein [Mass/Vol] 6.5 g/dL Normal 6.4-8.3 [facility] Comment on above: Performed By: #### NATHANIEL RAMÍREZ, HFP ####[facility] (DEFAULT)[address] [place] [address] Albumin [Mass/Vol] 3.2 g/dL Low 3.5 - 5.0 g/dL [facility] ALP [Catalytic activity/Vol] 118 U/L 32 - 126 U/L [facility] ALT [Catalytic activity/Vol] 25 U/L 10 - 52 U/L [facility] AST [Catalytic activity/Vol] 32 U/L 10 - 39 U/L [facility] Bilirubin [Mass/Vol] 1.0 mg/dL NINF - 1.5 mg/dL [facility] Bilirubin.direct [Mass/Vol] 0.3 mg/dL High NINF - 0.3 mg/dL [facility] Protein [Mass/Vol] 6.5 g/dL 6.4 - 8.3 g/dL [facility] HISTOPLASMA AND BLASTOMYCES ANTIGEN, ENZYME IMMUNOASSAY, SERMon 09-03-2023 Histoplasma/Blastomy antonia Ag Result Detected Critically abnormal Not Detected [facility] Histoplasma/Blastomy antonia Ag Value 5.3 ng/mL [facility] Interpretation and review of laboratory results Abnormal [facility] IMMUNOPHENOTYPING, TISSUE/FL UIDon 09-03-2023 BKR DX CODE Use Ordering Normal [facility] Comment on above: Order Comment: Pleas e lab add on to specimen collected yesterdayIMMUNOPHENOTYPING DIAGNOSISPATIENT NAME: GEORGE SLATER: 1970MRN: [id number]#: [id number] BY: Yossi Perla M.D,, Ph.D. [id number] TYPE: Bronchial Alveolar LavageLABORATORY INTERPRETATION:There is no [...] performance characteristicsdetermined The Flow Cytometry Laboratory at [facility]. It has notbeen cleared or approved by the FDA. This laboratory is certifiedunder the Clinical Laboratory Improvement Amendments (CLIA)as qualified to perform high complexity clinical laboratorytesting. This test is used for clinical purposes. It should notbe regarded as investigational or for research.The [facility] Flow Cytometry Laboratory lower limitof CLL MRD detection is 0.1% of the gated lymphocytes. Performed By: #### G IPP ####[facility] (DEFAULT)[address] [place] [address] Flow Interpretation See Comment Normal [facility] Comment on above: Order Comment: Dilan gregory lab add on to specimen collected yesterdayIMMUNOPHENOTYPING DIAGNOSISPATIENT NAME: GEORGE SLATER: 1970MRN: [id number]#: [id number] BY: Yossi Perla M.D,, Ph.D. [id number] TYPE: Bronchial Alveolar LavageLABORATORY INTERPRETATION:There is no [...] performance characteristicsdetermined The Flow Cytometry Laboratory at [facility]. It has notbeen cleared or approved by the FDA. This laboratory is certifiedunder the Clinical Laboratory Improvement Amendments (CLIA)as qualified to perform high complexity clinical laboratorytesting. This test is used for clinical purposes. It should notbe regarded as investigational or for research.The [facility] Flow Cytometry Laboratory lower limitof CLL MRD detection is 0.1% of the gated lymphocytes. Performed By: #### G IP ####[facility] ([facility])[address] [place] [address] Flow Interpreted by: Yossi Perla MD, PhD [facility] Comment on above: Order Comment: Pleas e lab add on to specimen collected yesterdayIMMUNOPHENOTYPING DIAGNOSISPATIENT NAME: GEORGE SLATER: 1970MRN: [id number]#: [id number] BY: Yossi Perla M.D,, Ph.D. [id number] TYPE: Bronchial Alveolar LavageLABORATORY INTERPRETATION:There is no [...] performance characteristicsdetermined The Flow Cytometry Laboratory at [facility]. It has notbeen cleared or approved by the FDA. This laboratory is certifiedunder the Clinical Laboratory Improvement Amendments (CLIA)as qualified to perform high complexity clinical laboratorytesting. This test is used for clinical purposes. It should notbe regarded as investigational or for research.The [facility] Flow Cytometry Laboratory lower limitof CLL MRD detection is 0.1% of the gated lymphocytes. Performed By: #### G IPP ####[facility] (DEFAULT)[address] [place] [address] MAGNESIUMon 09-03-2023 Magnesium [Mass/Vol] 1.6 mg/dL Normal 1.6-2.6 [facility] Comment on above: Performed By: #### M GO, CHM7, [facility] ####[facility] (DEFAULT)[address] [place] [address] Interpretation and review of laboratory results Normal [facility] Magnesium [Mass/Vol] 1.6 mg/dL 1.6 - 2 .6 mg/dL [facility] No Panel Informationon 09-03 Interpretation and review of laboratory results Abnormal [facility] PARVOVIRUS (B19) DNA, PCR, B LOODon 09-03-2023 PARVOVIRUS B19 BY RAPID PCR Not detected Not Detected [facility] NE SPEC SOURCE Whole Blood [facility] Portable XR Chest Viewson RADIOLOGY RADIOLOGY [facility] Radiology Study observation (narrative) [facility] Portable XR Chest ViewsOrder ed By: [place] on 09-03-2023 [facility] Work Phone: XR CHEST PORTABLEon 09-03-20 23 XR CHEST PORTABLE Normal [facility] ACID FAST CULTUREon 09-02-20 23 Bacteria identified Cx Nom (Unsp spec) NO GROWTH DAY 42 OF 42 Normal [facility] Comment on above: Performed By: #### A FB ####[facility] (DEFAULT)[address] [place] [address] Fluorochrome Stain No acid Fast Bacillus Seen Normal [facility] Comment on above: Performed By: #### A FB ####[facility] (DEFAULT)[address] [place] [address] Bacteria identified Cx Nom (Unsp spec) NO GROWTH DAY 42 OF 42 Normal [facility] Comment on above: Order Comment: BAL A FB culture. Clinical suspicion for non-tuberculous mycobacteria Performed By: #### A FB ####[facility] (DEFAULT)[address] [place] [address] Fluorochrome Stain No acid Fast Bacillus Seen Normal [facility] Comment on above: Order Comment: BAL A FB culture. Clinical suspicion for non-tuberculous mycobacteria Performed By: #### A FB ####[facility] (DEFAULT)[address] [facility] [place] [address] ASPERGILLUS (GALACTOMANNAN), ANTIGENon 09-02-2023 Galactomannan Ag IA Qn <0.500 NINF [facility] ASPERGILLUS ANTIGEN, BALon 1 Aspergillus Galactomannan Antigen, BAL <0.500 Normal <0.5 [facility] Comment on above: Result Comment: ---- ADDITIONAL INFORMATION This is a qualitative test and the resulted index value isnot indicative of disease severity. Serial testing isrecommended for patients at high risk for invasiveaspergillosis.This assay was performed using the FDA-cleared [employer] Aspergillus Galactomannan EIA.Test Performed by:[place] [id number] Director: Rosendo Bose M.D. Ph.D.; CLIA# [id number] Performed By: #### X ASGFL ####[facility] (DEFAULT)[address] [address] Aspergillus Galactomannan Antigen, BAL <0.500 Normal <0.5 [facility] Comment on above: Order Comment: BAL a spirgillus antigen Result Comment: ---- ADDITIONAL INFORMATION This is a qualitative test and the resulted index value isnot indicative of disease severity. Serial testing isrecommended for patients at high risk for invasiveaspergillosis.This assay was performed using the FDA-cleared [employer] Aspergillus Galactomannan EIA.Test Performed by:[place] [id number] Director: Rosendo Bsoe M.D. Ph.D.; CLIA# [id number] Performed By: #### X ASGFL ####[facility] (DEFAULT)[address] [place] [address] ATYPICAL BACTERIAL PNEUMONIA ,PCROrdered By: Shari Contreras on 09-02-2023 B. parapertussis DNA ESTELITA+probe Ql (Unsp spec) Not detected Not Detected [facility] B. pertussis DNA ESTELITA+probe Ql (Unsp spec) Not detected Not Detected [facility] C. pneumoniae DNA ESTELITA+probe Ql (Unsp spec) Not detected Not Detected [facility] Interpretation and review of laboratory results Normal [facility] M. pneumoniae DNA ESTELITA+probe Ql (Unsp spec) Not detected Not Detected [facility] ATYPICAL BACTERIAL PNEUMONIA ,PCRon 09-02-2023 Bordetella Parapertussis Not detected Normal Not Detected [facility] Comment on above: Order Comment: [...] by [facility]. It has not been cleared or approved by the FDA. The laboratory is required under CLIA as qualified to perform high-complexity testing. This test is used for clinical purposes. It should not be regarded as investigational or for research. Performed By: #### A TYPNE ####[facility] (DEFAULT)[address] [place] [address] Bordetella Pertussis Not detected Normal Not Detected [facility] Comment on above: Order Comment: [...] by [facility]. It has not been cleared or approved by the FDA. The laboratory is required under CLIA as qualified to perform high-complexity testing. This test is used for clinical purposes. It should not be regarded as investigational or for research. Performed By: #### A TYPNE ####[facility] (DEFAULT)[address] [place] [address] Chlamydia Pneumoniae Not detected Normal Not Detected [facility] Comment on above: Order Comment: [...] by [facility]. It has not been cleared or approved by the FDA. The laboratory is required under CLIA as qualified to perform high-complexity testing. This test is used for clinical purposes. It should not be regarded as investigational or for research. Performed By: #### A TYPNE ####[facility] (DEFAULT)[address] [place] [address] Mycoplasma Pneumoniae Not detected Normal Not Detected [facility] Comment on above: Order Comment: [...] by [facility]. It has not been cleared or approved by the FDA. The laboratory is required under CLIA as qualified to perform high-complexity testing. This test is used for clinical purposes. It should not be regarded as investigational or for research. Performed By: #### A TYPNE ####[facility] (DEFAULT)[address] [place] [address] BAL CONSULTon 09-02-2023 ALVEOLAR MACROPHAGES 33 % Normal [facility] Comment on above: Order Comment: BAL c onsultIf > 15% lymphocytes - please send for flow. Performed By: #### B ALC ####[facility] (DEFAULT)[address] [place] [address] Bal comments Correlation with microbiology stains and cultures is recommended. Correlation with viral studies is recommended. Normal [facility] Comment on above: Order Comment: BAL c onsultIf > 15% lymphocytes - please send for flow. Performed By: #### B ALC ####[facility] (DEFAULT)[address] [facility] [place] [address] Bal Diff Quik Stain Quality Check Acceptable Normal [facility] Comment on above: Order Comment: BAL c onsultIf > 15% lymphocytes - please send for flow. Performed By: #### B ALC ####[facility] (DEFAULT)[address] [facility] [place] [address] Bal Reviewed By: Leonardo Peralta MD Normal [facility] Comment on above: Order Comment: BAL c onsultIf > 15% lymphocytes - please send for flow. Performed By: #### B ALC ####[facility] (DEFAULT)[address] [place] [address], [place] [address] BKR BAL INTERPRETATION Cellular specimen comprised of alveolar macrophages and small lymphocytes. No definitive microorganisms are observed. Rare degenerating cells with changes suggestive of viral cytopathic effect are noted. Moderate degenerative changes. Normal [facility] Comment on above: Order Comment: BAL c onsultIf > 15% lymphocytes - please send for flow. Performed By: #### B ALC ####[facility] (DEFAULT)[address] [facility] [place] [address] BKR DX CODE Use Ordering Normal [facility] Comment on above: Order Comment: BAL c onsultIf > 15% lymphocytes - please send for flow. Performed By: #### B ALC ####[facility] (DEFAULT)[address] [place] [address], [place] [address] Eosinophils/100 WBC (Bld) 0 % Normal [facility] Comment on above: Order Comment: BAL c onsultIf > 15% lymphocytes - please send for flow. Performed By: #### B ALC ####[facility] (DEFAULT)[address] [place] [address], [place] [address] Lymphocytes/100 WBC (Bld) 49 % Normal [facility] Comment on above: Order Comment: BAL c onsultIf > 15% lymphocytes - please send for flow. Performed By: #### B ALC ####[facility] (DEFAULT)[address] [place] [address], [place] [address] Neutrophils/100 WBC (Bld) 18 % Normal [facility] Comment on above: Order Comment: BAL c onsultIf > 15% lymphocytes - please send for flow. Performed By: #### B ALC ####[facility] (DEFAULT)[address] [facility] [place] [address] ALVEOLAR MACROPHAGES 32 % Normal [facility] Comment on above: Order Comment: BAL c onsult for cell differential and pathologist review. Please do flow cytometry if > 12% lymphocytes Performed By: #### B ALC ####[facility] (DEFAULT)[address] [place] [address] Bal comments Correlation with microbiology stains and cultures is recommended. [facility] Comment on above: Order Comment: BAL c onsult for cell differential and pathologist review. Please do flow cytometry if > 12% lymphocytes Performed By: #### B ALC ####[facility] (DEFAULT)[address] [facility] [place] [address] Bal Diff Quik Stain Quality Check Acceptable Normal [facility] Comment on above: Order Comment: BAL c onsult for cell differential and pathologist review. Please do flow cytometry if > 12% lymphocytes Performed By: #### B ALC ####[facility] (DEFAULT)[address] [facility] [place] [address] Bal Reviewed By: Leonardo Peralta MD [facility] Comment on above: Order Comment: BAL c onsult for cell differential and pathologist review. Please do flow cytometry if > 12% lymphocytes Performed By: #### B ALC ####[facility] (DEFAULT)[address] [facility] [place] [address] BKR BAL INTERPRETATION Cellular specimen comprised of alveolar macrophages and small lymphocytes. No definitive microorganisms are observed. Moderate degenerative changes. [facility] Comment on above: Order Comment: BAL c onsult for cell differential and pathologist review. Please do flow cytometry if > 12% lymphocytes Performed By: #### B ALC ####[facility] (DEFAULT)[address] [facility] [place] [address] BKR DX CODE Use Ordering Normal [facility] Comment on above: Order Comment: BAL c onsult for cell differential and pathologist review. Please do flow cytometry if > 12% lymphocytes Performed By: #### B ALC ####[facility] (DEFAULT)[address] [facility] [place] [address] Eosinophils/100 WBC (Bld) 0 % Normal [facility] Comment on above: Order Comment: BAL c onsult for cell differential and pathologist review. Please do flow cytometry if > 12% lymphocytes Performed By: #### B ALC ####[facility] (DEFAULT)[address] [facility] [place] [address] Lymphocytes/100 WBC (Bld) 57 % Normal [facility] Comment on above: Order Comment: BAL c onsult for cell differential and pathologist review. Please do flow cytometry if > 12% lymphocytes Performed By: #### B ALC ####[facility] (DEFAULT)[address] [facility] [place] [address] Neutrophils/100 WBC (Bld) 11 % Normal [facility] Comment on above: Order Comment: BAL c onsult for cell differential and pathologist review. Please do flow cytometry if > 12% lymphocytes Performed By: #### B ALC ####[facility] (DEFAULT)[address] [place] [address] BRONCHOSCOPYon 09-02-2023 Radiology Study observation (narrative) [facility] Bacteria identified Cx Nom ( Bld)on 09-02-2023 Bacteria identified Cx Nom (Unsp spec) NO GROWTH DAY 5 OF 5 [facility] CBC,PLATELETSon 09-02-2023 Hematocrit (Bld) [Volume fraction] 39.9 % Normal 39.6-48.8 [facility] Comment on above: Performed By: #### H EMOGC ####[facility] (DEFAULT)[address] [facility] [place] [address] Hemoglobin (Bld) [Mass/Vol] 12.9 g/dL Low 13.4-16.8 [facility] Comment on above: Performed By: #### H EMOGC ####[facility] (DEFAULT)[address] [facility] [place] [address] MCV (RBC) [Entitic vol] 86.4 fL Normal 79.0-94.5 [facility] Comment on above: Performed By: #### H EMOGC ####[facility] (DEFAULT)[address] [facility] [place] [address] Mean Cell Hgb 27.9 pg Normal 26.1-33.3 [facility] Comment on above: Performed By: #### H EMOGC ####[facility] (DEFAULT)[address] [facility] [place] [address] Mean Cell Hgb Conc 32.3 g/dL Normal 31.9-36.5 [facility] Comment on above: Performed By: #### H EMOGC ####[facility] (DEFAULT)[address] [facility] [place] [address] Platelet mean volume (Bld) [Entitic vol] 9.5 fL Normal 8.7-12.3 [facility] Comment on above: Performed By: #### H EMOGC ####[facility] (DEFAULT)[address] [facility] [place] [address] Platelets (Bld) [#/Vol] 210 10*3/uL Normal 146-337 [facility] Comment on above: Performed By: #### H EMOGC ####[facility] (DEFAULT)[address] [facility] [place] [address] RBC (Bld) [#/Vol] 4.62 10*6/uL Normal 4.38-5.83 [facility] Comment on above: Performed By: #### H EMOGC ####[facility] (DEFAULT)[address] [facility] [place] [address] RBC Distribution 13.2 % Normal 10.9-14.[address] [facility] Comment on above: Performed By: #### H EMOGC ####[facility] (DEFAULT)[address] [place] [address] WBC (Bld) [#/Vol] 4.12 10*3/uL Normal 3.73-10.10 [facility] Comment on above: Performed By: #### H [facility] ####[facility] (DEFAULT)[address] [place] [address] Erythrocyte distribution width (RBC) [Ratio] 13.2 % 10.9 - 14.3 % [facility] Hematocrit (Bld) [Volume fraction] 39.9 % 39.6 - 48.8 % [facility] Hemoglobin (Bld) [Mass/Vol] 12.9 g/dL Low 13.4 - 16.8 g/dL [facility] Interpretation and review of laboratory results Abnormal [facility] MCH (RBC) [Entitic mass] 27.9 pg 26.1 - 33.3 pg [facility] MCHC (RBC) [Mass/Vol] 32.3 g/dL 31.9 - 36.5 g/dL [facility] MCV (RBC) [Entitic vol] 86.4 fL 79.0 - 94.5 fL [facility] Platelet mean volume (Bld) [Entitic vol] 9.5 fL 8.7 - 12.3 fL [facility] Platelets (Bld) [#/Vol] 210 10*3/uL 146 - 337 K/uL [facility] RBC (Bld) [#/Vol] 4.62 10*6/uL [facility] WBC (Bld) [#/Vol] 4.12 10*3/uL 3.73 - 10. 10 K/uL [facility] CHEM 7 (LYTES,BUN,CREA,GLUC) on 09-02-2023 Anion gap [Moles/Vol] 13 mmol/L Normal 7-17 [facility] Comment on above: Performed By: #### H FP, MGO, CHM7 ####[facility] (DEFAULT)[address] [place] [address] Chloride [Moles/Vol] 105 mmol/L Normal 98-108 [facility] Comment on above: Performed By: #### H DOMENICA MONCADA CHM7 ####[facility] (DEFAULT)[address] [place] [address] CO2 [Moles/Vol] 22 mmol/L Normal 21-31 [facility] Comment on above: Performed By: #### H ANTWAN MGTJ Mercado7 ####[facility] (DEFAULT)[address] [facility] [place] [address] Creatinine [Mass/Vol] 1.25 mg/dL Normal 0.70-1.30 [facility] Comment on above: Performed By: #### H ANTWAN MGHELEN MercadoM7 ####[facility] (DEFAULT)[address] [facility] [place] [address] GFR/1.73 sq M.predicted among non-blacks MDRD (S/P/Bld) [Vol rate/Area] 69 mL/min/{1.73_m2} Normal >=60 [facility] Comment on above: Result Comment: Repo rted eGFR is based on the CKD-EPI 2020 equation using creatinine, age, and sex. Performed By: #### H DOMENICA MONCADA CHM7 ####[facility] (DEFAULT)[address] [facility] [place] [address] Glucose [Mass/Vol] 105 mg/dL High 70-99 [facility] Comment on above: Performed By: #### H ANTWAN MGO CHM7 ####[facility] (DEFAULT)[address] [facility] [place] [address] Osmolality [Osmolality] 287 mosm/kg Normal 278-305 [facility] Comment on above: Performed By: #### H ANTWAN MGO CHM7 ####[facility] (DEFAULT)[address] [facility] [place] [address] Potassium [Moles/Vol] 4.3 mmol/L Normal 3.5-5.0 [facility] Comment on above: Performed By: #### H DOMENICA MONCADA CHM7 ####[facility] (DEFAULT)[address] [facility] [place] [address] Sodium [Moles/Vol] 136 mmol/L Normal 135-145 [facility] Comment on above: Performed By: #### DOMENICA MCKINNON CHM7 ####[facility] (DEFAULT)[address] [facility] [place] [address] Urea nitrogen [Mass/Vol] 16 mg/dL Normal 7-25 [facility] Comment on above: Performed By: #### DOMENICA MCKINNON CHM7 ####[facility] (DEFAULT)[address] [facility] [place] [address] Urea nitrogen/Creatinine [Mass ratio] 13 mg/mg Normal [facility] Comment on above: Performed By: #### DOMENICA MCKINNON CHM7 ####[facility] (DEFAULT)[address] [facility] [place] [address] Anion gap [Moles/Vol] 13 mmol/L 7 - 17 mmol/L [facility] Chloride [Moles/Vol] 105 mmol/L 98 - 10 8 mmol/L [facility] CO2 [Moles/Vol] 22 mmol/L 21 - 31 mmol/L [facility] Creatinine [Mass/Vol] 1.25 mg/dL 0.70 - 1.30 mg/dL [facility] eGFR, CKD-EPI, Male 69 - [facility] Glucose [Mass/Vol] 105 mg/dL High 70 - 99 mg/dL [facility] Osmolality Calc [Osmolality] 287 [facility] Potassium [Moles/Vol] 4.3 mmol/L 3.5 - 5.0 mmol/L [facility] Sodium [Moles/Vol] 136 mmol/L 135 - 145 mmol/L [facility] Urea nitrogen [Mass/Vol] 16 mg/dL 7 - 25 mg/dL [facility] Urea nitrogen/Creatinine [Mass ratio] 13 mg/mg [facility] CMV PCR,FLUIDS,URINE,EYE ETC on 09-02-2023 CMV by PCR Result Negative Normal Negative [facility] Comment on above: Result Comment: ---- ADDITIONAL INFORMATION This test was developed and its performance characteristicsdetermined by [facility] in a manner consistent with CLIArequirements. This test has not been cleared or approved bythe U.S. Food and Drug Administration.Test Performed by:[place] [id number] Director: Rosendo Bose M.D. Ph.D.; CLIA# [id number] Performed By: #### Y CMV ####[facility] (DEFAULT)[address] [address] CMV BY PCR SOURCE BAL [facility] Normal [facility] Comment on above: Performed By: #### Y CMV ####[facility] (DEFAULT)[address] [address] CMV by PCR Result Negative Normal Negative [facility] Comment on above: Result Comment: ---- ADDITIONAL INFORMATION This test was developed and its performance characteristicsdetermined by [facility] in a manner consistent with CLIArequirements. This test has not been cleared or approved bythe U.S. Food and Drug Administration.Test Performed by:[address] [address]Rck Director: Rosendo Bose M.D. Ph.D.; CLIA# [id number] Performed By: #### Y CMV ####[facility] (DEFAULT)[address] [address] CMV BY PCR SOURCE BAL [facility] Comment on above: Performed By: #### Y CMV ####[facility] (DEFAULT)[address] [facility] [place] [address] CYTOLOGY, NON-GYNon 09-02-20 CYTOLOGIC DIAGNOSIS Normal [facility] Comment on above: Result Comment: A. B RONCHOALVEOLAR LAVAGE, LEFT LOWER LOBE (CYTOLOGY):FINAL DIAGNOSIS:No Malignant Cells Are IdentifiedHypocellular Specimen Performed By: #### N ONGNNONFNA ####[facility] (DEFAULT)[address] [place] [address] Case Report Normal [facility] Comment on above: Result Comment: Medi abhishek Cytology Report Case: [id number] Provider: Crow Diaz MD Collected: 09/02/2023 08:38 AMOrdering [facility]: [facility] Received: 09/02/2023 10:44 AMPathologist: KENTON Caglepecimen: BRONCHOALVEOLAR LAVAGE, LLL BAL Performed By: #### N ONGNNONFNA ####[facility] (DEFAULT)[address] [place] [address] Clinical History Renal transplant. Normal [facility] Comment on above: Performed By: #### N ONGNNONFNA ####[facility] (DEFAULT)[address] [place] [address] Gross Description Normal [facility] Comment on above: Result Comment: LLL BAL1 ml hazy colorless fld unfixed1 TP slide Pap stainFor Immediate Release to Patient's MyChart? Yes Performed By: #### N ONGNNONFNA ####[facility] (DEFAULT)[address] [place] [address] FUNGUS CULTUREon 09-02-2023 Bacteria identified Cx Nom (Unsp spec) Normal [facility] Comment on above: Order Comment: Ident ification was performed on the MALDI-TOF mass spectrometer Delfmemsyper. This test was developed by [facility]. It has not been cleared or approved by the FDA. The laboratory is regulated under CLIA as qualified to perform high-complexity testing. This test is used for clinical purposes. It should not be regarded as investigational or for research. Result Comment: Grow ca758Nbr Romeo Histoplasma capsulatum Performed By: #### F UN ####[facility] (DEFAULT)[address] [facility] [place] [address] Bacteria identified Cx Nom (Unsp spec) NO GROWTH DAY 28 OF 28 Normal [facility] Comment on above: Order Comment: BAL f ungal culture Performed By: #### F UN ####[facility] (DEFAULT)[address] [place] [address] HEPATIC FUNCTION PANELon Albumin [Mass/Vol] 3.2 g/dL Low 3.5-5.0 [facility] Comment on above: Performed By: #### H FP, MGO, CHM7 ####[facility] (DEFAULT)[address] [place] [address] ALP [Catalytic activity/Vol] 107 U/L Normal 32-126 [facility] Comment on above: Performed By: #### H FP, MGO, CHM7 ####[facility] (DEFAULT)[address] [place] [address] ALT [Catalytic activity/Vol] 20 U/L Normal 10-52 [facility] Comment on above: Performed By: #### H FP, MGO, CHM7 ####[facility] (DEFAULT)[address] [place] [address] AST [Catalytic activity/Vol] 31 U/L Normal 10-39 [facility] Comment on above: Performed By: #### H FP, MGO, CHM7 ####[facility] (DEFAULT)[address] [place] [address] Bilirubin [Mass/Vol] 1.0 mg/dL Normal <1.5 [facility] Comment on above: Performed By: #### H DOMENICA MONCADA CHM7 ####[facility] (DEFAULT)[address] [facility] [place] [address] Bilirubin.indirect [Mass/Vol] 0.3 mg/dL High <0.3 [facility] Comment on above: Performed By: #### H DOMENICA MONCADA CHM7 ####[facility] (DEFAULT)[address] [facility] [place] [address] Protein [Mass/Vol] 6.6 g/dL Normal 6.4-8.3 [facility] Comment on above: Performed By: #### H DOMENICA MONCADA CHM7 ####[facility] (DEFAULT)[address] [facility] [place] [address] Albumin [Mass/Vol] 3.2 g/dL Low 3.5 - 5.0 g/dL [facility] ALP [Catalytic activity/Vol] 107 U/L 32 - 126 U/L [facility] ALT [Catalytic activity/Vol] 20 U/L 10 - 52 U/L [facility] AST [Catalytic activity/Vol] 31 U/L 10 - 39 U/L [facility] Bilirubin [Mass/Vol] 1.0 mg/dL [facility] 1.[facility] mg/dL [facility] Bilirubin.direct [Mass/Vol] 0.3 mg/dL High NINF - 0.3 mg/dL [facility] Protein [Mass/Vol] 6.6 g/dL 6.4 - 8.3 g/dL [facility] [facility] HISTOPLASMA ANTIGEN, FLUIDon 09-02-2023 FH SOURCE BAL RML Normal [facility] Comment on above: Performed By: #### Y FHST ####[facility] (DEFAULT)[address] [facility] [place] [address] Histo FLD interpretation Negative Normal [facility] Comment on above: Result Comment: ---- ADDITIONAL INFORMATION Reference interval: None DetectedReportable Range: Positive Results reported in ng/mL from0.20 ng/mL to 20.00 ng/mLPositive Results above 20.00 ng/mL are reported as 'Abovethe Limit of Quantification'Cross-reactions occur with Blastomyces spp., Coccidioidesspp., and Paracoccidioides brasiliensis.This test was developed and its performance characteristicsdetermined by [employer]. It has not beencleared or approved by the FDA; however, FDA clearance orapproval is not currently required for clinical use. Theresults are not intended to be used as the sole means forclinical diagnosis or patient management decisions.Test Performed by:[id number] [facility] [address] Performed By: #### Y ST ####[facility] (DEFAULT)[address] [place] [address] Histoplasma Antigen, FLUID Not detected Normal [facility] Comment on above: Performed By: #### Y ST ####[facility] (DEFAULT)[address] [place] [address] HISTOPLASMA ANTIGEN,URINEon 09-02-2023 H. capsulatum Ag (U) [Mass/Vol] Not detected ng/mL [facility] H. capsulatum Ag IA Ql (U) Not detected Not Detected [facility] HISTOPLASMA CAPSULATUM/BLAST OMYCES SPECIES,PCR FLUIDon 09-02-2023 HISTO/BLASTO RESULT Negative Normal Not Applicable [facility] Comment on above: Result Comment: A Ne gative result from BAL fluid does not rule out thepresence of Histoplasma capsulatum because the sensitivity from this source is suboptimal. ADDITIONAL INFORMATION This test was developed and its performance characteristicsdetermined by [facility] in a manner consistent with CLIArequirements. This test has not been cleared or approved bythe U.S. Food and Drug Administration.Test Performed by:[address] [address]Kfu Director: Rosendo Bose M.D. Ph.D.; CLIA# [id number] Performed By: #### Y HBRP ####[facility] (DEFAULT)[address] [facility] [place] [address] Source BAL RML Normal [facility] Comment on above: Performed By: #### Y HBRP ####[facility] (DEFAULT)[address] [facility] [place] [address] HIV 1 AND 2 ANTIBODIES/P24 A NTIGENOrdered By: Wilma Luque on 09-02-2023 HIV 1+2 Ab+HIV1 p24 Ag IA Ql Non-Reactive Non Reactive [facility] Interpretation and review of laboratory results Normal [facility] HIV 1 AND 2 ANTIBODIES/P24 A NTIGENon 09-02-2023 HIV-1/HIV-2 Ab With p24 Antigen Non-Reactive Normal Non Reactive [facility] Comment on above: Performed By: #### L [id number] ####[facility] (DEFAULT)[address] [facility] [place] [address] LEGIONELLA CULTUREon 023 Bacteria identified Cx Nom (Unsp spec) NO GROWTH DAY 7 OF [address] [facility] Comment on above: Performed By: #### L EGN ####[facility] (DEFAULT)[address] [facility] [place] [address] Bacteria identified Cx Nom (Unsp spec) NO GROWTH DAY 7 OF [address] [facility] Comment on above: Order Comment: BAL l egionella culture Performed By: #### L EGN ####[facility] (DEFAULT)[address] [facility] [place] [address] LEGIONELLA PCRon 09-02-2023 Legionella species, Culture BAL RML Normal [facility] Comment on above: Performed By: #### Y LEGRP ####[facility] (DEFAULT)[address] [place] [address] Legionella, pcr result Negative Normal Not Applicable [facility] Comment on above: Result Comment: ---- ADDITIONAL INFORMATION This test was developed and its performance characteristicsdetermined by [facility] in a manner consistent with CLIArequirements. This test has not been cleared or approved bythe U.S. Food and Drug Administration.Test Performed by:[address] Director: Rosendo Bose M.D. Ph.D.; CLIA# [id number] Performed By: #### Y LEGRP ####[facility] (DEFAULT)[address] [facility] [place] [address] LOWER RESPIRATORY CULTURE, B ACTERIALon 09-02-2023 Bacteria identified Cx Nom (Unsp spec) NO GROWTH DAY 2 OF [address] [facility] Comment on above: Performed By: #### R ES ####[facility] (DEFAULT)[address] [facility] [place] [address] Microscopic observation Gram stain Nom (Unsp spec) Normal [facility] Comment on above: Result Comment: Cyto centrifuge preparationNeutrophils, RareRed Blood Cells PresentNo organisms seen Performed By: #### R ES ####[facility] (DEFAULT)[address] [facility] [place] [address] Bacteria identified Cx Nom (Unsp spec) NO GROWTH DAY 2 OF [address] [facility] Comment on above: Order Comment: BAL b acterial respiratory culture Performed By: #### R ES ####[facility] (DEFAULT)[address] [facility] [place] [address] Microscopic observation Gram stain Nom (Unsp spec) Normal [facility] Comment on above: Order Comment: BAL b acterial respiratory culture Result Comment: Cyto centrifuge preparationNeutrophils, ModerateRed Blood Cells PresentNo organisms seen Performed By: #### R ES ####[facility] (DEFAULT)[address] [facility] [place] [address] MAGNESIUMon 09-02-2023 Magnesium [Mass/Vol] 1.7 mg/dL Normal 1.6-2.6 [facility] Comment on above: Performed By: #### H FP, MGO, CHM7 ####[facility] (DEFAULT)[address] [place] [address] Interpretation and review of laboratory results Normal [facility] Magnesium [Mass/Vol] 1.7 mg/dL 1.6 - 2 .6 mg/dL [facility] No Panel Informationon 09-02 Interpretation and review of laboratory results Abnormal [facility] PNEUMOCYSTIS JIROVECI,PCRon 09-02-2023 PN Report Status DNR Normal [facility] Comment on above: Performed By: #### Y PNRP ####[facility] (DEFAULT)[address] [facility] [place] [address] PN Specimen Source BAL RML Normal [facility] Comment on above: Performed By: #### Y PNRP ####[facility] (DEFAULT)[address] [facility] [place] [address] Pneum jiroveci comment DNR Normal [facility] Comment on above: Performed By: #### Y PNRP ####[facility] (DEFAULT)[address] [place] [address], [place] [address] Pneumocystis jiroveci,PCR result Negative Normal Not Applicable [facility] Comment on above: Result Comment: ---- ADDITIONAL INFORMATION This test was developed and its performance characteristicsdetermined by [facility] in a manner consistent with CLIArequirements. This test has not been cleared or approved bythe U.S. Food and Drug Administration.Test Performed by:[facility] [place], [place] [address]Kkj Director: Rosendo Bose M.D. Ph.D.; CLIA# [id number] Performed By: #### Y PNRP ####[facility] (DEFAULT)[address] [facility] [place] [address] PN Report Status DNR Normal [facility] Comment on above: Performed By: #### Y PNRP ####[facility] (DEFAULT)[address] [facility] [place] [address] PN Specimen Source BAL LLL Normal [facility] Comment on above: Performed By: #### Y PNRP ####[facility] (DEFAULT)[address] [facility] [place] [address] Pneum jiroveci comment DNR Normal [facility] Comment on above: Performed By: #### Y PNRP ####[facility] (DEFAULT)[address] [facility] [place] [address] Pneumocystis jiroveci,PCR result Negative Normal Not Applicable [facility] Comment on above: Result Comment: ---- ADDITIONAL INFORMATION This test was developed and its performance characteristicsdetermined by [facility] in a manner consistent with CLIArequirements. This test has not been cleared or approved bythe U.S. Food and Drug Administration.Test Performed by:[address] [address]Suw Director: Rosendo Bose M.D. Ph.D.; CLIA# [id number] Performed By: #### Y PNRP ####[facility] (DEFAULT)[address] [place] [address] TACROLIMUS LEVEL, TROUGH (NE E DRUG LEVEL)on 09-02-2023 Interpretation and review of laboratory results Normal [facility] Tacrolimus (Bld) [Mass/Vol] 4.2 ng/mL [facility] Tacrolimus, Trough 4.2 ng/mL Normal [facility] ow Transplant: 4.0-12.0, Therapeutic: 5.0-15.0 [facility] Comment on above: Order Comment: Dilan gregory draw at specified interval PRIOR to dose. Do not hold dose to wait for level. Specimens batched twice per day, (M-F) and once per day weekendsMethod performed is a chemiluminescent microparticle immunoasssay on the [employer] i2000.The range is based on experience at [facility] and users should be aware that target concentrations vary widely depending on concomitant therapy, time post-transplant, and desired degree of immunosuppression. Performed By: #### T ACRO ####[facility] (DEFAULT)[address] [place] [address] CBC,PLATELETSon 09-01-2023 Hematocrit (Bld) [Volume fraction] 38.9 % Low 39.6-48.8 [facility] Comment on above: Performed By: #### H EMO ####[facility] (DEFAULT)[address] [place] [address] Hemoglobin (Bld) [Mass/Vol] 12.7 g/dL Low 13.4-16.8 [facility] Comment on above: Performed By: #### H EMOGC ####[facility] (DEFAULT)[address] [facility] [place] [address] MCV (RBC) [Entitic vol] 84.6 fL Normal 79.0-94.5 [facility] Comment on above: Performed By: #### H EMOGC ####[facility] (DEFAULT)[address] [place] [address] Mean Cell Hgb 27.6 pg Normal 26.1-33.3 [facility] Comment on above: Performed By: #### H EMOGC ####[facility] (DEFAULT)[address] [place] [address] Mean Cell Hgb Conc 32.6 g/dL Normal 31.9-36.5 [facility] Comment on above: Performed By: #### H EMOGC ####[facility] (DEFAULT)[address] [facility] [place] [address] Platelet mean volume (Bld) [Entitic vol] 9.4 fL Normal 8.7-12.3 [facility] Comment on above: Performed By: #### H EMOGC ####[facility] (DEFAULT)[address] [facility] [place] [address] Platelets (Bld) [#/Vol] 209 10*3/uL Normal 146-337 [facility] Comment on above: Performed By: #### H EMO ####[facility] (DEFAULT)[address] [facility] [place] [address] RBC (Bld) [#/Vol] 4.60 10*6/uL Normal 4.38-5.83 [facility] Comment on above: Performed By: #### H EMOGC ####[facility] (DEFAULT)[address] [facility] [place] [address] RBC Distribution 13.4 % Normal 10.9-14.[address] [facility] Comment on above: Performed By: #### H EMOGC ####[facility] (DEFAULT)[address] [facility] [place] [address] WBC (Bld) [#/Vol] 4.41 10*3/uL Normal 3.73-10.10 [facility] Comment on above: Performed By: #### H EMOGC ####[facility] (DEFAULT)[address] [facility] [place] [address] Erythrocyte distribution width (RBC) [Ratio] 13.4 % 10.9 - 14.3 % [facility] Hematocrit (Bld) [Volume fraction] 38.9 % Low 39.6 - 48.8 % [facility] Hemoglobin (Bld) [Mass/Vol] 12.7 g/dL Low 13.4 - 16.8 g/dL [facility] Interpretation and review of laboratory results Abnormal [facility] MCH (RBC) [Entitic mass] 27.6 pg 26.1 - 33.3 pg [facility] MCHC (RBC) [Mass/Vol] 32.6 g/dL 31.9 - 36.5 g/dL [facility] MCV (RBC) [Entitic vol] 84.6 fL 79.0 - 94.5 fL [facility] Platelet mean volume (Bld) [Entitic vol] 9.4 fL 8.7 - 12.3 fL [facility] Platelets (Bld) [#/Vol] 209 10*3/uL 146 - 337 K/uL [facility] RBC (Bld) [#/Vol] 4.60 10*6/uL [facility] WBC (Bld) [#/Vol] 4.41 10*3/uL 3.73 - 10. 10 K/uL [facility] CHEM 7 (LYTES,BUN,CREA,GLUC) on 09-01-2023 Anion gap [Moles/Vol] 14 mmol/L Normal 7-17 [facility] Comment on above: Performed By: #### H DOMENICA MONCADA CHM7 ####[facility] (DEFAULT)[address] [place] [address] Chloride [Moles/Vol] 103 mmol/L Normal 98-108 [facility] Comment on above: Performed By: #### H DOMENICA MONCADA CHM7 ####[facility] (DEFAULT)[address] [facility] [place] [address] CO2 [Moles/Vol] 21 mmol/L Normal 21-31 [facility] Comment on above: Performed By: #### H ANTWAN MGRogelio CHM7 ####[facility] (DEFAULT)[address] [facility] [place] [address] Creatinine [Mass/Vol] 1.16 mg/dL Normal 0.70-1.30 [facility] Comment on above: Performed By: #### H DOMENICA MONCADA CHM7 ####[facility] (DEFAULT)[address] [facility] [place] [address] GFR/1.73 sq M.predicted among non-blacks MDRD (S/P/Bld) [Vol rate/Area] 76 mL/min/{1.73_m2} Normal >=60 [facility] Comment on above: Result Comment: Repo rted eGFR is based on the CKD-EPI 2020 equation using creatinine, age, and sex. Performed By: #### H ANTWAN MGOHELENM7 ####[facility] (DEFAULT)[address] [facility] [place] [address] Glucose [Mass/Vol] 117 mg/dL High 70-99 [facility] Comment on above: Performed By: #### H ANTWAN MGO CHM7 ####[facility] (DEFAULT)[address] [facility] [place] [address] Osmolality [Osmolality] 285 mosm/kg Normal 278-305 [facility] Comment on above: Performed By: #### H ANTWAN MGO CHM7 ####[facility] (DEFAULT)[address] [facility] [place] [address] Potassium [Moles/Vol] 4.2 mmol/L Normal 3.5-5.0 [facility] Comment on above: Performed By: #### H ANTWAN MGO CHM7 ####[facility] (DEFAULT)[address] [facility] [place] [address] Sodium [Moles/Vol] 134 mmol/L Low 135-145 [facility] Comment on above: Performed By: #### H ANTWAN MGO CHM7 ####[facility] (DEFAULT)[address] [facility] [place] [address] Urea nitrogen [Mass/Vol] 18 mg/dL Normal 7-25 [facility] Comment on above: Performed By: #### H ANTWAN MGO CHM7 ####[facility] (DEFAULT)[address] [facility] [place] [address] Urea nitrogen/Creatinine [Mass ratio] 16 mg/mg Normal [facility] Comment on above: Performed By: #### H FP, MGO, CHM7 ####[facility] (DEFAULT)[address] [place] [address] Anion gap [Moles/Vol] 14 mmol/L 7 - 17 mmol/L [facility] Chloride [Moles/Vol] 103 mmol/L 98 - 10 8 mmol/L [facility] CO2 [Moles/Vol] 21 mmol/L 21 - 31 mmol/L [facility] Creatinine [Mass/Vol] 1.16 mg/dL 0.70 - 1.30 mg/dL [facility] eGFR, CKD-EPI, Male 76 - [facility]F [facility] Glucose [Mass/Vol] 117 mg/dL High 70 - 99 mg/dL [facility] Osmolality Calc [Osmolality] 285 [facility] Potassium [Moles/Vol] 4.2 mmol/L 3.5 - 5.0 mmol/L [facility] Sodium [Moles/Vol] 134 mmol/L Low 135 - 145 mmol/L [facility] Urea nitrogen [Mass/Vol] 18 mg/dL 7 - 25 mg/dL [facility] Urea nitrogen/Creatinine [Mass ratio] 16 mg/mg [facility] CRYPTOCOCCAL ANTIGENon 09-01 Cryptococcus Antigen,Serum Negative Normal Negative [facility] Comment on above: Performed By: #### C RAG ####[facility] (DEFAULT)[address] [place] [address] Cryptococcus sp Ag Ql (S) Negative Negative [facility] Interpretation and review of laboratory results Normal [facility] HEPATIC FUNCTION PANELon Albumin [Mass/Vol] 3.3 g/dL Low 3.5-5.0 [facility] Comment on above: Performed By: #### H FP, MGO, CHM7 ####[facility] (DEFAULT)[address] [place] [address] ALP [Catalytic activity/Vol] 112 U/L Normal 32-126 [facility] Comment on above: Performed By: #### H FP, MGO, CHM7 ####[facility] (DEFAULT)[address] [place] [address] ALT [Catalytic activity/Vol] 21 U/L Normal 10-52 [facility] Comment on above: Performed By: #### H FP, MGO, CHM7 ####[facility] (DEFAULT)[address] [place] [address] AST [Catalytic activity/Vol] 29 U/L Normal 10-39 [facility] Comment on above: Performed By: #### H FP, MGO, CHM7 ####[facility] (DEFAULT)[address] [place] [address] Bilirubin [Mass/Vol] 1.0 mg/dL Normal <1.5 [facility] Comment on above: Performed By: #### H FP, MGO, CHM7 ####[facility] (DEFAULT)[address] [place] [address] Bilirubin.indirect [Mass/Vol] 0.2 mg/dL Normal <0.3 [facility] Comment on above: Performed By: #### H FP, MGO, CHM7 ####[facility] (DEFAULT)[address] [place] [address] Protein [Mass/Vol] 6.8 g/dL Normal 6.4-8.3 [facility] Comment on above: Performed By: #### H FP, MGO, CHM7 ####[facility] (DEFAULT)[address] [place] [address] Albumin [Mass/Vol] 3.3 g/dL Low 3.5 - 5.0 g/dL [facility] ALP [Catalytic activity/Vol] 112 U/L 32 - 126 U/L [facility] ALT [Catalytic activity/Vol] 21 U/L 10 - 52 U/L [facility] AST [Catalytic activity/Vol] 29 U/L 10 - 39 U/L [facility] Bilirubin [Mass/Vol] 1.0 mg/dL NINF - 1.5 mg/dL [facility] Bilirubin.direct [Mass/Vol] 0.2 mg/dL NINF - 0.3 mg/dL [facility] Protein [Mass/Vol] 6.8 g/dL 6.4 - 8.3 g/dL [facility] L. pneumophila 1 Ag IA Ql (U )Ordered By: Carolin Miles on 09-01-2023 Interpretation and review of laboratory results Normal [facility] LEGIONELLA URINARY AGOrdered By: Carolin Miles on 09-01-2023 L. pneumophila 1 Ag IA Ql (U) Negative Negative [facility] MAGNESIUMon 09-01-2023 Magnesium [Mass/Vol] 1.6 mg/dL Normal 1.6-2.6 [facility] Comment on above: Performed By: #### H ANTWAN, MGO, CHM7 ####[facility] (DEFAULT)[address] [place] [address] Interpretation and review of laboratory results Normal [facility] Magnesium [Mass/Vol] 1.6 mg/dL 1.6 - 2 .6 mg/dL [facility] No Panel Informationon 09-01 Interpretation and review of laboratory results Abnormal [facility] PARVOVIRUS (B19) DNA, PCR, B LOODon 09-01-2023 PARVOVIRUS B19 BY RAPID PCR Not detected Normal Not Detected [facility] Comment on above: Result Comment: The primers/probe used in this assay will detectparvovirus B19 and V9 (genotypes 1 # 3) but maynot detect parvovirus genotype 2. The majority ofcirculating Parvovirus B19 strains in the [facility] are genotype 1. Genotype 2 is not believed tocirculate widely in the [facility], but has beenassociated with similar clinical features as genotype1. Genotype 3 is most prevalent in some [place].This test was developed and its analyticalperformance characteristics have been determinedby [employer] [place], [place].It has not been cleared or approved by the FDA. Thisassay has been validated pursuant to the CLIAregulations and is used for clinical purposes.Test Performed at:[employer] [facility] [place] [id number] Benavides M.D., Ph.D.,Director of Laboratories Performed By: #### Y PRVP ####[facility] (DEFAULT)[address] [address] NE SPEC SOURCE Whole Blood Normal [facility] Comment on above: Performed By: #### Y PRVP ####[facility] (DEFAULT)[address] [address] ASPERGILLUS (GALACTOMANNAN), ANTIGENon 08-31-2023 Aspergillus Antigen <0.500 Normal <0.5 [facility] Comment on above: Result Comment: ---- ADDITIONAL INFORMATION This is a qualitative test and the resulted index value isnot indicative of disease severity. Serial testing isrecommended for patients at high risk for invasiveaspergillosis.This assay was performed using the FDA-cleared Bio-[employer]gent LabsPlatelia Aspergillus Galactomannan EIA.Test Performed by:[facility] [place], [place] [address]Wig Director: Rosendo Bose M.D. Ph.D.; CLIA# [id number] Performed By: #### Y ASPR ####[facility] (DEFAULT)[address] [address] CBC,PLATELETSon 08-31-2023 Hematocrit (Bld) [Volume fraction] 39.4 % Low 39.6-48.8 [facility] Comment on above: Performed By: #### H EMOGC ####[facility] (DEFAULT)[address] [facility] [place] [address] Hemoglobin (Bld) [Mass/Vol] 12.8 g/dL Low 13.4-16.8 [facility] Comment on above: Performed By: #### H EMOGC ####[facility] (DEFAULT)[address] [facility] [place] [address] MCV (RBC) [Entitic vol] 85.1 fL Normal 79.0-94.5 [facility] Comment on above: Performed By: #### H EMOGC ####[facility] (DEFAULT)[address] [facility] [place] [address] Mean Cell Hgb 27.6 pg Normal 26.1-33.3 [facility] Comment on above: Performed By: #### H EMOGC ####[facility] (DEFAULT)[address] [facility] [place] [address] Mean Cell Hgb Conc 32.5 g/dL Normal 31.9-36.5 [facility] Comment on above: Performed By: #### H EMOGC ####[facility] (DEFAULT)[address] [facility] [place] [address] Platelet mean volume (Bld) [Entitic vol] 9.6 fL Normal 8.7-12.3 [facility] Comment on above: Performed By: #### H EMOGC ####[facility] (DEFAULT)[address] [facility] [place] [address] Platelets (Bld) [#/Vol] 228 10*3/uL Normal 146-337 [facility] Comment on above: Performed By: #### H EMOGC ####[facility] (DEFAULT)[address] [facility] [place] [address] RBC (Bld) [#/Vol] 4.63 10*6/uL Normal 4.38-5.83 [facility] Comment on above: Performed By: #### [facility] ####[facility] (DEFAULT)[address] [facility] [place] [address] RBC Distribution 13.3 % Normal 10.9-14.[address] [facility] Comment on above: Performed By: #### H [facility] ####[facility] (DEFAULT)[address] [place] [address] WBC (Bld) [#/Vol] 4.77 10*3/uL Normal 3.73-10.10 [facility] Comment on above: Performed By: #### H [facility] ####[facility] (DEFAULT)[address] [facility] [place] [address] Erythrocyte distribution width (RBC) [Ratio] 13.3 % 10.9 - 14.3 % [facility] Hematocrit (Bld) [Volume fraction] 39.4 % Low 39.6 - 48.8 % [facility] Hemoglobin (Bld) [Mass/Vol] 12.8 g/dL Low 13.4 - 16.8 g/dL [facility] Interpretation and review of laboratory results Abnormal [facility] [facility] MCH (RBC) [Entitic mass] 27.6 pg 26.1 - 33.3 pg [facility] MCHC (RBC) [Mass/Vol] 32.5 g/dL 31.9 - 36.5 g/dL [facility] MCV (RBC) [Entitic vol] 85.1 fL 79.0 - 94.5 fL [facility] Platelet mean volume (Bld) [Entitic vol] 9.6 fL 8.7 - 12.3 fL [facility] Platelets (Bld) [#/Vol] 228 10*3/uL 146 - 337 K/uL [facility] RBC (Bld) [#/Vol] 4.63 10*6/uL [facility] WBC (Bld) [#/Vol] 4.77 10*3/uL 3.73 - 10. 10 K/uL [facility] CHEM 7 (LYTES,BUN,CREA,GLUC) on 08-31-2023 Anion gap [Moles/Vol] 13 mmol/L Normal 7-17 [facility] Comment on above: Performed By: #### M GO, HFP, CHM7, FERIB, PROCAL ####[facility] (DEFAULT)[address] [place] [address] Chloride [Moles/Vol] 102 mmol/L Normal 98-108 [facility] Comment on above: Performed By: #### M GO, HFP, CHM7, FERIB, PROCAL ####[facility] (DEFAULT)[address] [place] [address] CO2 [Moles/Vol] 23 mmol/L Normal 21-31 [facility] Comment on above: Performed By: #### M GO, HFP, CHM7, FERIB, PROCAL ####[facility] (DEFAULT)[address] [place] [address] Creatinine [Mass/Vol] 1.37 mg/dL High 0.70-1.30 [facility] Comment on above: Performed By: #### M GO, HFP, CHM7, FERIB, PROCAL ####[facility] (DEFAULT)[address] [place] [address] GFR/1.73 sq M.predicted among non-blacks MDRD (S/P/Bld) [Vol rate/Area] 62 mL/min/{1.73_m2} Normal >=60 [facility] Comment on above: Result Comment: Repo rted eGFR is based on the CKD-EPI 2020 equation using creatinine, age, and sex. Performed By: #### M GO, HFP, CHM7, FERIB, PROCAL ####[facility] (DEFAULT)[address] [place] [address] Glucose [Mass/Vol] 112 mg/dL High 70-99 [facility] Comment on above: Performed By: #### M GO, HFP, CHM7, FERIB, PROCAL ####[facility] (DEFAULT)[address] [place] [address] Osmolality [Osmolality] 284 mosm/kg Normal 278-305 [facility] Comment on above: Performed By: #### M MERLE, HFP, CHM7, FERIB, PROCAL ####[facility] (DEFAULT)[address] [place] [address] Potassium [Moles/Vol] 4.4 mmol/L Normal 3.5-5.0 [facility] Comment on above: Performed By: #### M MERLE, HFP, CHM7, FERIB, PROCAL ####[facility] (DEFAULT)[address] [place] [address] Sodium [Moles/Vol] 134 mmol/L Low 135-145 [facility] Comment on above: Performed By: #### Rod BLOOM, HFP, CHM7, FERIB, PROCAL ####[facility] (DEFAULT)[address] [place] [address] Urea nitrogen [Mass/Vol] 16 mg/dL Normal 7-25 [facility] Comment on above: Performed By: #### M MERLE, HFP, CHM7, FERIB, PROCAL ####[facility] (DEFAULT)[address] [place] [address] Urea nitrogen/Creatinine [Mass ratio] 12 mg/mg Normal [facility] Comment on above: Performed By: #### M MERLE, HFP, CHM7, FERIB, PROCAL ####[facility] (DEFAULT)[address] [place] [address] Anion gap [Moles/Vol] 13 mmol/L 7 - 17 mmol/L [facility] Chloride [Moles/Vol] 102 mmol/L 98 - 10 8 mmol/L [facility] CO2 [Moles/Vol] 23 mmol/L 21 - 31 mmol/L [facility] Creatinine [Mass/Vol] 1.37 mg/dL High 0.70 - 1.30 mg/dL [facility] eGFR, CKD-EPI, Male 62 - PINF [facility] Glucose [Mass/Vol] 112 mg/dL High 70 - 99 mg/dL [facility] Osmolality Calc [Osmolality] 284 [facility] Potassium [Moles/Vol] 4.4 mmol/L 3.5 - 5.0 mmol/L [facility] Sodium [Moles/Vol] 134 mmol/L Low 135 - 145 mmol/L [facility] Urea nitrogen [Mass/Vol] 16 mg/dL 7 - 25 mg/dL [facility] Urea nitrogen/Creatinine [Mass ratio] 12 mg/mg [facility] CT ABDOMEN/PELVIS WITHOUT CO NTRASTon 08-31-2023 CT ABDOMEN/PELVIS WITHOUT CONTRAST Normal [facility] CT Abdomen and Pelvis WO con traston 08-31-2023 RADIOLOGY RADIOLOGY [facility] Radiology Study observation (narrative) [facility] CT Abdomen and Pelvis WO con trastOrdered By: Chavez Larkin on 08-31-2023 [facility] Work Phone: CT CHEST WITHOUT CONTRASTon 08-31-2023 CT CHEST WITHOUT CONTRAST Normal [facility] CT Chest WO contraston 08-31 RADIOLOGY RADIOLOGY [facility] Radiology Study observation (narrative) [facility] CT Chest WO contrastOrdered By: Daisha Patterson on 08-31-2023 [facility] Work Phone: FERRITINon 08-31-2023 Ferritin [Mass/Vol] 409.0 ng/mL High 10.5 - 3 07.3 ng/mL [facility] Interpretation and review of laboratory results Abnormal [facility] Ferritin [Mass/Vol] 409.0 ng/mL High 10.5-307.3 [facility] Comment on above: Performed By: #### M GO, HFP, CHM7, FERIB, PROCAL ####[facility] (DEFAULT)[address] [place] [address] HEPATIC FUNCTION PANELon Albumin [Mass/Vol] 3.3 g/dL Low 3.5-5.0 [facility] Comment on above: Performed By: #### M GO, HFP, CHM7, FERIB, PROCAL ####[facility] (DEFAULT)[address] [place] [address] ALP [Catalytic activity/Vol] 113 U/L Normal 32-126 [facility] Comment on above: Performed By: #### M GO, HFP, CHM7, FERIB, PROCAL ####[facility] (DEFAULT)[address] [place] [address] ALT [Catalytic activity/Vol] 25 U/L Normal 10-52 [facility] Comment on above: Performed By: #### M GO, HFP, CHM7, FERIB, PROCAL ####[facility] (DEFAULT)[address] [place] [address] AST [Catalytic activity/Vol] 31 U/L Normal 10-39 [facility] Comment on above: Performed By: #### M GO, HFP, CHM7, FERIB, PROCAL ####[facility] (DEFAULT)[address] [place] [address] Bilirubin [Mass/Vol] 1.1 mg/dL Normal <1.5 [facility] Comment on above: Performed By: #### M GO, HFP, CHM7, FERIB, PROCAL ####[facility] (DEFAULT)[address] [place] [address] Bilirubin.indirect [Mass/Vol] 0.3 mg/dL High <0.3 [facility] Comment on above: Performed By: #### M GO, HFP, CHM7, FERIB, PROCAL ####[facility] (DEFAULT)[address] [place] [address] Protein [Mass/Vol] 7.0 g/dL Normal 6.4-8.3 [facility] Comment on above: Performed By: #### M TAVO BLOOM, CHMJessica, CATINA, PROCAL ####[facility] (DEFAULT)[address] [place] [address] Albumin [Mass/Vol] 3.3 g/dL Low 3.5 - 5.0 g/dL [facility] ALP [Catalytic activity/Vol] 113 U/L 32 - 126 U/L [facility] ALT [Catalytic activity/Vol] 25 U/L 10 - 52 U/L [facility] AST [Catalytic activity/Vol] 31 U/L 10 - 39 U/L [facility] Bilirubin [Mass/Vol] 1.1 mg/dL NINF - 1.5 mg/dL [facility] Bilirubin.direct [Mass/Vol] 0.3 mg/dL High NINF - 0.3 mg/dL [facility] Protein [Mass/Vol] 7.0 g/dL 6.4 - 8.3 g/dL [facility] LEGIONELLA URINARY AGon 10-0 Legionella Urinary Antigen Negative Normal Negative [facility] Comment on above: Performed By: #### L EGION ####[facility] (DEFAULT)[address] [place] [address] MAGNESIUMon 08-31-2023 Magnesium [Mass/Vol] 1.7 mg/dL Normal 1.6-2.6 [facility] Comment on above: Performed By: #### M TAVO BLOOM, CHM7, CATINA, PROCAL ####[facility] (DEFAULT)[address] [place] [address] Interpretation and review of laboratory results Normal [facility] Magnesium [Mass/Vol] 1.7 mg/dL 1.6 - 2 .6 mg/dL [facility] No Panel Informationon 08-31 Interpretation and review of laboratory results Abnormal [facility] PROCALCITONINon 08-31-2023 Interpretation and review of laboratory results Normal [facility] Procalcitonin [Mass/Vol] 0.23 ng/mL NINF - 0.50 ng/mL [facility] Procalcitonin 0.23 ng/mL Normal <0.50 [facility] Comment on above: Result Comment: [...] and trend procalcitonin in various clinical settings. [email or web address] common cutoffs associated with bacterial infections are as follows.Respiratory tract infections: >0.25 ng/mLSepsis/septic shock: >0.5 ng/mLProcalcitonin should not be used alone as a diagnostic tool, however. All procalcitonin results should be interpreted in association with the patients clinical condition and all laboratory findings. Performed By: #### M GO, [facility], CHM7, CATINA, ANG ####[facility] (DEFAULT)[address] [place] [address] TACROLIMUS LEVEL, TROUGH (NE E DRUG LEVEL)Ordered By: Yanira Marcum on 08-31-2023 Interpretation and review of laboratory results Normal [facility] Tacrolimus (Bld) [Mass/Vol] 5.9 ng/mL [facility] TACROLIMUS LEVEL, TROUGH (NE E DRUG LEVEL)on 08-31-2023 Tacrolimus, Trough 5.9 ng/mL Normal [facility] ow Transplant: 4.0-12.0, Therapeutic: 5.0-15.0 [facility] Comment on above: Order Comment: Pleas e draw at specified interval PRIOR to dose. Do not hold dose to wait for level. Specimens batched twice per day, (M-F) and once per day weekendsMethod performed is a chemiluminescent microparticle immunoasssay on the [employer] i2000.The range is based on experience at [facility] and users should be aware that target concentrations vary widely depending on concomitant therapy, time post-transplant, and desired degree of immunosuppression. Performed By: #### T ACRO ####[facility] (DEFAULT)[address] [place] [address] URINE CULTUREOrdered By: Jorge crowe Held on 08-31-2023 Bacteria identified Cx Nom (Unsp spec) No Growth [facility] DARYL AURIS SCREEN BY PCRO rdered By: Mynor Alejandro on 08-30-2023 Daryl auris Screen by PCR Not detected Not Detected [facility] Interpretation and review of laboratory results Normal [facility] CBC,PLATELETSon 08-30-2023 Hematocrit (Bld) [Volume fraction] 41.3 % Normal 39.6-48.8 [facility] Comment on above: Performed By: #### H EMOGC ####[facility] (DEFAULT)[address] [place] [address] Hemoglobin (Bld) [Mass/Vol] 13.2 g/dL Low 13.4-16.8 [facility] Comment on above: Performed By: #### H EMOGC ####[facility] (DEFAULT)[address] [place] [address] MCV (RBC) [Entitic vol] 85.5 fL Normal 79.0-94.5 [facility] Comment on above: Performed By: #### H EMOGC ####[facility] (DEFAULT)[address] [place] [address] Mean Cell Hgb 27.3 pg Normal 26.1-33.3 [facility] Comment on above: Performed By: #### H EMOGC ####[facility] (DEFAULT)[address] [place] [address] Mean Cell Hgb Conc 32.0 g/dL Normal 31.9-36.5 [facility] Comment on above: Performed By: #### H EMOGC ####[facility] (DEFAULT)[address] [place] [address] Platelet mean volume (Bld) [Entitic vol] 9.2 fL Normal 8.7-12.3 [facility] Comment on above: Performed By: #### H EMOGC ####[facility] (DEFAULT)[address] [place] [address] Platelets (Bld) [#/Vol] 235 10*3/uL Normal 146-337 [facility] Comment on above: Performed By: #### H EMO ####[facility] (DEFAULT)[address] [facility] [place] [address] RBC (Bld) [#/Vol] 4.83 10*6/uL Normal 4.38-5.83 [facility] Comment on above: Performed By: #### H EMO ####[facility] (DEFAULT)[address] [facility] [place] [address] RBC Distribution 13.3 % Normal 10.9-14.[address] [facility] Comment on above: Performed By: #### H EMOGC ####[facility] (DEFAULT)[address] [facility] [place] [address] WBC (Bld) [#/Vol] 4.96 10*3/uL Normal 3.73-10.10 [facility] Comment on above: Performed By: #### H EMOGC ####[facility] (DEFAULT)[address] [facility] [place] [address] Erythrocyte distribution width (RBC) [Ratio] 13.3 % 10.9 - 14.3 % [facility] Hematocrit (Bld) [Volume fraction] 41.3 % 39.6 - 48.8 % [facility] Hemoglobin (Bld) [Mass/Vol] 13.2 g/dL Low 13.4 - 16.8 g/dL [facility] Interpretation and review of laboratory results Abnormal [facility] MCH (RBC) [Entitic mass] 27.3 pg 26.1 - 33.3 pg [facility] MCHC (RBC) [Mass/Vol] 32.0 g/dL 31.9 - 36.5 g/dL [facility] MCV (RBC) [Entitic vol] 85.5 fL 79.0 - 94.5 fL [facility] Platelet mean volume (Bld) [Entitic vol] 9.2 fL 8.7 - 12.3 fL [facility] Platelets (Bld) [#/Vol] 235 10*3/uL 146 - 337 K/uL [facility] RBC (Bld) [#/Vol] 4.83 10*6/uL [facility] WBC (Bld) [#/Vol] 4.96 10*3/uL 3.73 - 10. 10 K/uL [facility] CHEM 7 (LYTES,BUN,CREA,GLUC) on 08-30-2023 Anion gap [Moles/Vol] 14 mmol/L Normal 7-17 [facility] Comment on above: Performed By: #### TJ RAMÍREZ7, HFP ####[facility] (DEFAULT)[address] [place] [address] Chloride [Moles/Vol] 102 mmol/L Normal 98-108 [facility] Comment on above: Performed By: #### Rod BLOOM CHM7, HFP ####[facility] (DEFAULT)[address] [place] [address] CO2 [Moles/Vol] 20 mmol/L Low 21-31 [facility] Comment on above: Performed By: #### Rod BLOOM CHM7, HFP ####[facility] (DEFAULT)[address] [place] [address] Creatinine [Mass/Vol] 1.56 mg/dL High 0.70-1.30 [facility] Comment on above: Performed By: #### NATHANIEL RAMÍREZ, HFP ####[facility] (DEFAULT)[address] [place] [address] GFR/1.73 sq M.predicted among non-blacks MDRD (S/P/Bld) [Vol rate/Area] 53 mL/min/{1.73_m2} Low >=60 [facility] Comment on above: Result Comment: Repo rted eGFR is based on the CKD-EPI 2020 equation using creatinine, age, and sex. Performed By: #### NATHANIEL RAMÍREZ, HFP ####[facility] (DEFAULT)[address] [place] [address] Glucose [Mass/Vol] 123 mg/dL High 70-99 [facility] Comment on above: Performed By: #### NATHANIEL RAMÍREZ, HFP ####[facility] (DEFAULT)[address] [place] [address] Osmolality [Osmolality] 281 mosm/kg Normal 278-305 [facility] Comment on above: Performed By: #### NATHANIEL RAMÍREZ, HFP ####[facility] (DEFAULT)[address] [place] [address] Potassium [Moles/Vol] 4.3 mmol/L Normal 3.5-5.0 [facility] Comment on above: Performed By: #### NATHANIEL RAMÍREZ, HFP ####[facility] (DEFAULT)[address] [place] [address] Sodium [Moles/Vol] 132 mmol/L Low 135-145 [facility] Comment on above: Performed By: #### NATHANIEL RAMÍREZ, HFP ####[facility] (DEFAULT)[address] [place] [address] Urea nitrogen [Mass/Vol] 16 mg/dL Normal 7-25 [facility] Comment on above: Performed By: #### M NATHANIEL BLOOM, HFP ####[facility] (DEFAULT)[address] [place] [address] Urea nitrogen/Creatinine [Mass ratio] 10 mg/mg Normal [facility] Comment on above: Performed By: #### M NATHANIEL BLOOM, HFP ####[facility] (DEFAULT)[address] [place] [address] Anion gap [Moles/Vol] 14 mmol/L 7 - 17 mmol/L [facility] Chloride [Moles/Vol] 102 mmol/L 98 - 10 8 mmol/L [facility] CO2 [Moles/Vol] 20 mmol/L Low 21 - 31 mmol/L [facility] Creatinine [Mass/Vol] 1.56 mg/dL High 0.70 - 1.30 mg/dL [facility] eGFR, CKD-EPI, Male 54 Low - PINF [facility] Glucose [Mass/Vol] 123 mg/dL High 70 - 99 mg/dL [facility] Osmolality Calc [Osmolality] 281 [facility] Potassium [Moles/Vol] 4.3 mmol/L 3.5 - 5.0 mmol/L [facility] Sodium [Moles/Vol] 132 mmol/L Low 135 - 145 mmol/L [facility] Urea nitrogen [Mass/Vol] 16 mg/dL 7 - 25 mg/dL [facility] Urea nitrogen/Creatinine [Mass ratio] 10 mg/mg [facility] EXTRA MICROon 08-30-2023 [facility] HEPATIC FUNCTION PANELon Albumin [Mass/Vol] 3.7 g/dL Normal 3.5-5.0 [facility] Comment on above: Performed By: #### M NATHANIEL BLOOM, HFP ####[facility] (DEFAULT)[address] [place] [address] ALP [Catalytic activity/Vol] 115 U/L Normal 32-126 [facility] Comment on above: Performed By: #### M MERLE CHM7, HFP ####[facility] (DEFAULT)[address] [place] [address] ALT [Catalytic activity/Vol] 22 U/L Normal 10-52 [facility] Comment on above: Performed By: #### M MERLE CHM7, HFP ####[facility] (DEFAULT)[address] [place] [address] AST [Catalytic activity/Vol] 34 U/L Normal 10-39 [facility] Comment on above: Performed By: #### M MERLE CHM7, HFP ####[facility] (DEFAULT)[address] [place] [address] Bilirubin [Mass/Vol] 1.2 mg/dL Normal <1.5 [facility] Comment on above: Performed By: #### Rod BLOOM CHM7, HFP ####[facility] (DEFAULT)[address] [place] [address] Bilirubin.indirect [Mass/Vol] 0.3 mg/dL High <0.3 [facility] Comment on above: Performed By: #### M HELEN BLOOMM7, HFP ####[facility] (DEFAULT)[address] [place] [address] Protein [Mass/Vol] 7.7 g/dL Normal 6.4-8.3 [facility] Comment on above: Performed By: #### M MERLE CHM7, HFP ####[facility] (DEFAULT)[address] [place] [address] Albumin [Mass/Vol] 3.7 g/dL 3.5 - 5.0 g/dL [facility] ALP [Catalytic activity/Vol] 115 U/L 32 - 126 U/L [facility] ALT [Catalytic activity/Vol] 22 U/L 10 - 52 U/L [facility] AST [Catalytic activity/Vol] 34 U/L 10 - 39 U/L [facility] Bilirubin [Mass/Vol] 1.2 mg/dL NINF - 1.5 mg/dL [facility] Bilirubin.direct [Mass/Vol] 0.3 mg/dL High NINF - 0.3 mg/dL [facility] Protein [Mass/Vol] 7.7 g/dL 6.4 - 8.3 g/dL [facility] MAGNESIUMon 08-30-2023 Magnesium [Mass/Vol] 1.8 mg/dL Normal 1.6-2.6 [facility] Comment on above: Performed By: #### M GO, CHM7, [facility] ####[facility] (DEFAULT)[address] [place] [address] Interpretation and review of laboratory results Normal [facility] Magnesium [Mass/Vol] 1.8 mg/dL 1.6 - 2 .6 mg/dL [facility] No Panel Informationon 08-30 Interpretation and review of laboratory results Abnormal [facility] CBC,PLATELETSon 08-29-2023 Hematocrit (Bld) [Volume fraction] 37.6 % Low 39.6-48.8 [facility] Comment on above: Performed By: #### H [facility] ####[facility] (DEFAULT)[address] [place] [address] Hemoglobin (Bld) [Mass/Vol] 12.2 g/dL Low 13.4-16.8 [facility] Comment on above: Performed By: #### H EMO ####[facility] (DEFAULT)[address] [place] [address] MCV (RBC) [Entitic vol] 85.1 fL Normal 79.0-94.5 [facility] Comment on above: Performed By: #### H EMOGC ####[facility] (DEFAULT)[address] [place] [address] Mean Cell Hgb 27.6 pg Normal 26.1-33.3 [facility] Comment on above: Performed By: #### H EMO ####[facility] (DEFAULT)[address] [place] [address] Mean Cell Hgb Conc 32.4 g/dL Normal 31.9-36.5 [facility] Comment on above: Performed By: #### H EMOGC ####[facility] (DEFAULT)[address] [place] [address] Platelet mean volume (Bld) [Entitic vol] 9.4 fL Normal 8.7-12.3 [facility] Comment on above: Performed By: #### H EMOGC ####[facility] (DEFAULT)[address] [facility] [place] [address] Platelets (Bld) [#/Vol] 233 10*3/uL Normal 146-337 [facility] Comment on above: Performed By: #### H EMOGC ####[facility] (DEFAULT)[address] [facility] [place] [address] RBC (Bld) [#/Vol] 4.42 10*6/uL Normal 4.38-5.83 [facility] Comment on above: Performed By: #### H EMOGC ####[facility] (DEFAULT)[address] [facility] [place] [address] RBC Distribution 13.4 % Normal 10.9-14.[address] [facility] Comment on above: Performed By: #### H EMOGC ####[facility] (DEFAULT)[address] [facility] [place] [address] WBC (Bld) [#/Vol] 4.92 10*3/uL Normal 3.73-10.10 [facility] Comment on above: Performed By: #### H EMOGC ####[facility] (DEFAULT)[address] [place] [address] Erythrocyte distribution width (RBC) [Ratio] 13.4 % 10.9 - 14.3 % [facility] Hematocrit (Bld) [Volume fraction] 37.6 % Low 39.6 - 48.8 % [facility] Hemoglobin (Bld) [Mass/Vol] 12.2 g/dL Low 13.4 - 16.8 g/dL [facility] Interpretation and review of laboratory results Abnormal [facility] MCH (RBC) [Entitic mass] 27.6 pg 26.1 - 33.3 pg [facility] MCHC (RBC) [Mass/Vol] 32.4 g/dL 31.9 - 36.5 g/dL [facility] MCV (RBC) [Entitic vol] 85.1 fL 79.0 - 94.5 fL [facility] Platelet mean volume (Bld) [Entitic vol] 9.4 fL 8.7 - 12.3 fL [facility] Platelets (Bld) [#/Vol] 233 10*3/uL 146 - 337 K/uL [facility] RBC (Bld) [#/Vol] 4.42 10*6/uL [facility] WBC (Bld) [#/Vol] 4.92 10*3/uL 3.73 - 10. 10 K/uL [facility] CHEM 7 (LYTES,BUN,CREA,GLUC) on 08-29-2023 Anion gap [Moles/Vol] 13 mmol/L Normal 7-17 [facility] Comment on above: Performed By: #### M GO, CHM7, GGTB, HFP ####[facility] (DEFAULT)[address] [place] [address] Chloride [Moles/Vol] 105 mmol/L Normal 98-108 [facility] Comment on above: Performed By: #### M GO, CHM7, GGTB, HFP ####[facility] (DEFAULT)[address] [facility] [place] [address] CO2 [Moles/Vol] 20 mmol/L Low 21-31 [facility] Comment on above: Performed By: #### M GO, CHM7, GGTB, HFP ####[facility] (DEFAULT)[address] [place] [address] Creatinine [Mass/Vol] 1.55 mg/dL High 0.70-1.30 [facility] Comment on above: Performed By: #### Rod BLOOM, CHM7, GGTB, HFP ####[facility] (DEFAULT)[address] [facility] [place] [address] GFR/1.73 sq M.predicted among non-blacks MDRD (S/P/Bld) [Vol rate/Area] 54 mL/min/{1.73_m2} Low >=60 [facility] Comment on above: Result Comment: Repo rted eGFR is based on the CKD-EPI 2020 equation using creatinine, age, and sex. Performed By: #### Rod GO, CHM7, GGTB, HFP ####[facility] (DEFAULT)[address] [place] [address], [place] [address] Glucose [Mass/Vol] 108 mg/dL High 70-99 [facility] Comment on above: Performed By: #### Rod BLOOM, CHM7, GGTB, HFP ####[facility] (DEFAULT)[address] [place] [address], [place] [address] Osmolality [Osmolality] 283 mosm/kg Normal 278-305 [facility] Comment on above: Performed By: #### Rod BLOOM, CHM7, GGTB, HFP ####[facility] (DEFAULT)[address] [place] [address], [place] [address] Potassium [Moles/Vol] 4.5 mmol/L Normal 3.5-5.0 [facility] Comment on above: Performed By: #### Rod BLOOM, CHM7, GGTB, HFP ####[facility] (DEFAULT)[address] [place] [address], [place] [address] Sodium [Moles/Vol] 133 mmol/L Low 135-145 [facility] Comment on above: Performed By: #### Rod GO, CHM7, GGTB, HFP ####[facility] (DEFAULT)[address] [facility] [place] [address] Urea nitrogen [Mass/Vol] 19 mg/dL Normal 7-25 [facility] Comment on above: Performed By: #### M MERLE CHM7, GGTB, HFP ####[facility] (DEFAULT)[address] [facility] [place] [address] Urea nitrogen/Creatinine [Mass ratio] 12 mg/mg Normal [facility] Comment on above: Performed By: #### M MERLE CHM7, GGTB, HFP ####[facility] (DEFAULT)[address] [facility] [place] [address] Anion gap [Moles/Vol] 13 mmol/L 7 - 17 mmol/L [facility] Chloride [Moles/Vol] 105 mmol/L 98 - 10 8 mmol/L [facility] CO2 [Moles/Vol] 20 mmol/L Low 21 - 31 mmol/L [facility] Creatinine [Mass/Vol] 1.55 mg/dL High 0.70 - 1.30 mg/dL [facility] eGFR, CKD-EPI, Male 55 Low - PINF [facility] Glucose [Mass/Vol] 108 mg/dL High 70 - 99 mg/dL [facility] Osmolality Calc [Osmolality] 283 [facility] Potassium [Moles/Vol] 4.5 mmol/L 3.5 - 5.0 mmol/L [facility] Sodium [Moles/Vol] 133 mmol/L Low 135 - 145 mmol/L [facility] Urea nitrogen [Mass/Vol] 19 mg/dL 7 - 25 mg/dL [facility] Urea nitrogen/Creatinine [Mass ratio] 12 mg/mg [facility] GGTon 08-29-2023 Gamma glutamyl transferase [Catalytic activity/Vol] 64 U/L 8 - 64 U/L [facility] Interpretation and review of laboratory results Normal [facility] Gamma glutamyl transferase [Catalytic activity/Vol] 64 U/L Normal 8-64 [facility] Comment on above: Performed By: #### M GO, CHM7, GGTB, HFP ####[facility] (DEFAULT)[address] [place] [address] HEPATIC FUNCTION PANELon Albumin [Mass/Vol] 3.3 g/dL Low 3.5-5.0 [facility] Comment on above: Performed By: #### M GO, CHM7, GGTB, HFP ####[facility] (DEFAULT)[address] [place] [address] ALP [Catalytic activity/Vol] 103 U/L Normal 32-126 [facility] Comment on above: Performed By: #### M GO, CHM7, GGTB, HFP ####[facility] (DEFAULT)[address] [place] [address] ALT [Catalytic activity/Vol] 18 U/L Normal 10-52 [facility] Comment on above: Performed By: #### M GO, CHM7, GGTB, HFP ####[facility] (DEFAULT)[address] [place] [address] AST [Catalytic activity/Vol] 27 U/L Normal 10-39 [facility] Comment on above: Performed By: #### M GO, CHM7, GGTB, HFP ####[facility] (DEFAULT)[address] [place] [address] Bilirubin [Mass/Vol] 1.1 mg/dL Normal <1.5 [facility] Comment on above: Performed By: #### M GO, CHM7, GGTB, HFP ####[facility] (DEFAULT)[address] [place] [address] Bilirubin.indirect [Mass/Vol] 0.3 mg/dL High <0.3 [facility] Comment on above: Performed By: #### M GO, CHM7, GGTB, HFP ####[facility] (DEFAULT)[address] [place] [address] Protein [Mass/Vol] 6.8 g/dL Normal 6.4-8.3 [facility] Comment on above: Performed By: #### M GO, CHM7, GGTB, HFP ####[facility] (DEFAULT)[address] [facility] [place] [address] Albumin [Mass/Vol] 3.3 g/dL Low 3.5 - 5.0 g/dL [facility] ALP [Catalytic activity/Vol] 103 U/L 32 - 126 U/L [facility] ALT [Catalytic activity/Vol] 18 U/L 10 - 52 U/L [facility] AST [Catalytic activity/Vol] 27 U/L 10 - 39 U/L [facility] Bilirubin [Mass/Vol] 1.1 mg/dL NINF - 1.5 mg/dL [facility] Bilirubin.direct [Mass/Vol] 0.3 mg/dL High NINF - 0.3 mg/dL [facility] Protein [Mass/Vol] 6.8 g/dL 6.4 - 8.3 g/dL [facility] HISTOPLASMA AND BLASTOMYCES ANTIGEN, ENZYME IMMUNOASSAY, SERMon 08-29-2023 Histoplasma/Blastomy antonia Ag Result Detected Invalid Interpretation Code Not Detected [facility] Comment on above: Result Comment: Anti gen from Histoplasma or Blastomyces (unable todifferentiate) detected. Result should be correlated withclinical presentation, exposure history, and otherdiagnostic procedures, including culture, serology,histopathology, and/or radiographic findings, to aid in thedifferentiation between histoplasmosis and blastomycosis.CRITICAL RESULT Performed By: #### H IBAG ####[facility] (DEFAULT)[address] [facility] [place] [address] Histoplasma/Blastomy antonia Ag Value 5.3 ng/mL Normal [facility] Comment on above: Result Comment: ---- ADDITIONAL INFORMATION This test was developed and its performance characteristicsdetermined by [facility] in a manner consistent with CLIArequirements. This test has not been cleared or approved bythe U.S. Food and Drug Administration.Test Performed by:[place] [id number] Director: Rosendo Bose M.D. Ph.D.; CLIA# [id number] Performed By: #### H IBAG ####[facility] (DEFAULT)[address] [place] [address], [place] [address] HISTOPLASMA ANTIGEN,URINEon 08-29-2023 HISTOPLASM AG, URINE Not detected Normal Not Detected [facility] Comment on above: Result Comment: No H istoplasma antigen detected.False negative results may occur. Repeat testing on anew specimen should be considered if clinically indicated. Performed By: #### Y HISTG ####[facility] (DEFAULT)[address] [place] [address], [place] [address] Histoplasma Ag Value Not detected Normal [facility] Comment on above: Result Comment: ---- ADDITIONAL INFORMATION This test has been modified from the insurance underwriter sales'sinstructions. Its performance characteristics weredetermined by [facility] in a manner consistent withCLIA requirements. This test has not been cleared orapproved by the U.S. Food and Drug Administration.Test Performed by:[address] [id number] Director: Rosendo Bose M.D. Ph.D.; CLIA# [id number] Performed By: #### Y HISTG ####[facility] (DEFAULT)[address] [place], [place] [address], [place] [address] MAGNESIUMon 08-29-2023 Magnesium [Mass/Vol] 1.7 mg/dL Normal 1.6-2.6 [facility] Comment on above: Performed By: #### M GO, CHM7, GGTB, HFP ####[facility] (DEFAULT)[address] [place] [address] Interpretation and review of laboratory results Normal [facility] Magnesium [Mass/Vol] 1.7 mg/dL 1.6 - 2 .6 mg/dL [facility] No Panel Informationon 08-29 Interpretation and review of laboratory results Abnormal [facility] PT,INR,PTTon 08-29-2023 aPTT Coag (Bld) [Time] 29.3 s Normal 24.0-34.3 [facility] Comment on above: Performed By: #### P TPTT ####[facility] (DEFAULT)[address] [place] [address] INR Coag (PPP) [Relative time] 1.1 {INR} Normal 0.9-1.1 [facility] Comment on above: Performed By: #### P TPTT ####[facility] (DEFAULT)[address] [place] [address] PT Coag (PPP) [Time] 13.8 s Normal 11.9-14.2 [facility] Comment on above: Performed By: #### P TPTT ####[facility] (DEFAULT)[address] [place] [address] aPTT Coag (PPP) [Time] 29.3 s [facility] INR Coag (Bld) [Relative time] 1.1 {INR} 0.9 - 1.1 [facility] Interpretation and review of laboratory results Normal [facility] PT Coag (PPP) [Time] 13.8 s [facility] Portable XR Chest Viewson RADIOLOGY RADIOLOGY [facility] Portable XR Chest ViewsOrder ed By: Gerald Baer on 08-29-2023 [facility] Work Phone: TACROLIMUS LEVEL, TROUGH (NE E DRUG LEVEL)on 08-29-2023 Interpretation and review of laboratory results Normal [facility] Tacrolimus (Bld) [Mass/Vol] 8.9 ng/mL [facility] Tacrolimus, Trough 8.9 ng/mL Normal [facility] Transplant: 4.0-12.0, Therapeutic: 5.0-15.0 [facility] Comment on above: Order Comment: Pleas e draw at specified interval PRIOR to dose. Do not hold dose to wait for level. Specimens batched twice per day, (M-F) and once per day weekendsMethod performed is a chemiluminescent microparticle immunoasssay on the [employer] i2000.The range is based on experience at [facility] and users should be aware that target concentrations vary widely depending on concomitant therapy, time post-transplant, and desired degree of immunosuppression. Performed By: #### T ACRO ####[facility] (DEFAULT)[address] [place] [address] Tacrolimus, Trough 8.7 ng/mL Normal [facility] Transplant: 4.0-12.0, Therapeutic: 5.0-15.0 [facility] Comment on above: Order Comment: Pleas e draw at specified interval PRIOR to dose. Do not hold dose to wait for level. Specimens batched twice per day, (M-F) and once per day weekendsMethod performed is a chemiluminescent microparticle immunoasssay on the [employer] i2000.The range is based on experience at [facility] and users should be aware that target concentrations vary widely depending on concomitant therapy, time post-transplant, and desired degree of immunosuppression. Performed By: #### T ACRO ####[facility] (DEFAULT)[address] [place] [address] TACROLIMUS LEVEL, TROUGH (NE E DRUG LEVEL)Ordered By: Roxanne Louie on 08-29-2023 Interpretation and review of laboratory results Normal [facility] Tacrolimus (Bld) [Mass/Vol] 8.7 ng/mL [facility] URINALYSIS REFLEX TO CULTURE PERFORMABLEon 08-29-2023 Appearance (U) Clear Normal Clear [facility] Comment on above: Order Comment: For i ndwelling catheters, specimen collection is acceptable on catheter day 1 and 2 only. ? Performed By: #### U [id number] ####[facility] (DEFAULT)[address] [place] [address] Bacteria ABSENT Normal ABSENT [facility] Comment on above: Order Comment: For i ndwelling catheters, specimen collection is acceptable on catheter day 1 and 2 only. ? Performed By: #### U [id number] ####[facility] (DEFAULT)[address] [place] [address] Blood Urine Trace Abnormal Negative [facility] Comment on above: Order Comment: For i ndwelling catheters, specimen collection is acceptable on catheter day 1 and 2 only. ? Performed By: #### U [id number] ####[facility] (DEFAULT)[address] [facility] [place] [address] Calcium Oxalate Crystals PRESENT Normal [facility] Comment on above: Order Comment: For i ndwelling catheters, specimen collection is acceptable on catheter day 1 and 2 only. ? Performed By: #### U [id number] ####[facility] (DEFAULT)[address] [place] [address] Color (U) Yellow Normal Yellow [facility] Comment on above: Order Comment: For i ndwelling catheters, specimen collection is acceptable on catheter day 1 and 2 only. ? Performed By: #### U [id number] ####[facility] (DEFAULT)[address] [facility] [place] [address] Glucose Ql (U) Negative Normal Negative [facility] Comment on above: Order Comment: For i ndwelling catheters, specimen collection is acceptable on catheter day 1 and 2 only. ? Performed By: #### U [id number] ####[facility] (DEFAULT)[address] [facility] [address] Ketones Ql (U) Negative Normal Negative [facility] Comment on above: Order Comment: For i ndwelling catheters, specimen collection is acceptable on catheter day 1 and 2 only. ? Performed By: #### U [id number] ####[facility] (DEFAULT)[address] [facility] [place] [address] Leukocyte esterase Test strip Ql (U) Negative Normal Negative [facility] Comment on above: Order Comment: For i ndwelling catheters, specimen collection is acceptable on catheter day 1 and 2 only. ? Performed By: #### U [id number] ####[facility] (DEFAULT)[address] [facility] [place] [address] Nitrites Urine Negative Normal Negative [facility] Comment on above: Order Comment: For i ndwelling catheters, specimen collection is acceptable on catheter day 1 and 2 only. ? Performed By: #### U [id number] ####[facility] (DEFAULT)[address] [facility] [place] [address] pH (U) 6.0 [pH] Normal 5.0-7.0 [facility] Comment on above: Order Comment: For i ndwelling catheters, specimen collection is acceptable on catheter day 1 and 2 only. ? Performed By: #### U [id number] ####[facility] (DEFAULT)[address] [facility] [place] [address] Protein Urine Negative Normal Negative [facility] Comment on above: Order Comment: For i ndwelling catheters, specimen collection is acceptable on catheter day 1 and 2 only. ? Performed By: #### U [id number] ####[facility] (DEFAULT)[address] [place] [address], [place] [address] RBC Urine 3-5 Abnormal 0-2 [facility] Comment on above: Order Comment: For i ndwelling catheters, specimen collection is acceptable on catheter day 1 and 2 only. ? Performed By: #### U [id number] ####[facility] (DEFAULT)[address] [place] [address], [place] [address] Specific [place] Urine 1.015 Normal 1.001-1.035 [facility] Comment on above: Order Comment: For i ndwelling catheters, specimen collection is acceptable on catheter day 1 and 2 only. ? Performed By: #### U [id number] ####[facility] (DEFAULT)[address] [place] [address] Squamous/Epithelial Cells 0-2/hpf Normal 0-2/hpf, 3-5/hpf = 1+ [facility] Comment on above: Order Comment: For i ndwelling catheters, specimen collection is acceptable on catheter day 1 and 2 only. ? Performed By: #### U [id number] ####[facility] (DEFAULT)[address] [place] [address] Urobilinogen Urine 1.0 E.U./dL Normal 0.2 E.U/d L, 1.0 E.U/dL [facility] Comment on above: Order Comment: For i ndwelling catheters, specimen collection is acceptable on catheter day 1 and 2 only. ? Performed By: #### U [id number] ####[facility] (DEFAULT)[address] [place] [address] WBC Urine 0 - 5 Normal 0 - 5 [facility] Comment on above: Order Comment: For i ndwelling catheters, specimen collection is acceptable on catheter day 1 and 2 only. ? Performed By: #### U [id number] ####[facility] (DEFAULT)[address] [place] [address] URINALYSIS REFLEX TO CULTURE PERFORMABLEOrdered By: Shaji Kelly on 08-29-2023 Appearance (U) Clear Clear U [facility] Bacteria LM Ql (Urine sed) ABSENT ABSENT U [facility] Calcium Oxalate Crystals PRESENT [facility] Color (U) Yellow Yellow [facility] Epithelial cells.squamous LM Ql (Urine sed) 0-2/hpf 0-2/hpf, 3-5/hpf = 1+ [facility] Glucose Test strip (U) [Mass/Vol] Negative Negative [facility] Interpretation and review of laboratory results Abnormal [facility] Ketones (U) [Mass/Vol] Negative Negative [facility] Leukocyte esterase Test strip Ql (U) Negative Negative [facility] Nitrite Ql (U) Negative Negative [facility] pH (U) 6.0 [pH] 5.0 - 7.0 [facility] Protein (U) [Mass/Vol] Negative Negative [facility] RBC (U) [#/Vol] Trace Abnormal Negative [facility] RBC LM.HPF (Urine sed) [#/Area] 3-5 Abnormal [facility] Specific gravity (U) [Rel density] 1.015 1.001 - 1.035 [facility] Urobilinogen (U) [Mass/Vol] 1.0 E.U./dL 0.2 E.U/dL, 1.0 E.U/dL [facility] WBC LM.HPF (Urine sed) [#/Area] 0 - 5 [facility] URINE CULTUREon 08-29-2023 Bacteria identified Cx Nom (U) No Growth Normal [facility] Comment on above: Order Comment: For i ndwelling catheters, specimen collection is acceptable on catheter day 1 and 2 only. Sung top vacutainer. Urine must be to the fill line to process (4mls). If minimum volume, send urine in a yellow top vacutainer tube. Performed By: #### U R ####[facility] (DEFAULT)[address] [place] [address] US RENAL TRANSPLANT SCANon 0 08-29-2023 US RENAL TRANSPLANT SCAN Normal [facility] US for transplanted kidney l imitedon 08-29-2023 RADIOLOGY RADIOLOGY [facility] Radiology Study observation (narrative) [facility] US for transplanted kidney l imitedOrdered By: Romana Matias on 08-29-2023 [facility] Work Phone: XR CHEST PORTABLEon 08-29-20 XR CHEST PORTABLE Normal [facility] BLOOD CULTUREon 08-28-2023 Bacteria identified Cx Nom [...] then anaerobic Performed By: #### B LDCULT ####[facility] (DEFAULT)[address] [place] [address] Bacteria identified Cx Nom (Unsp spec) NO [...] then anaerobic Performed By: #### B LDCULT ####[facility] (DEFAULT)[address] [place] [address] DARYL AURIS SCREEN BY PCRo n 08-28-2023 Daryl auris Screen by PCR Not detected Normal Not Detected [facility] Comment on above: Order Comment: This test was performed using a real-time PCR assay. This test was developed, and its performance characteristics determined by [facility]. It has not been cleared or approved by the FDA. The laboratory is regulated under CLIA as qualified to perform high-complexity testing. This test is used for clinical purposes. It should not be regarded as investigational or for research. Performed By: #### C ANDIDA AURIS SCREEN BY PCR ####[facility] (DEFAULT)[address] [place] [address] CBC AND ELECTRONIC DIFFon Abs Baso Auto < Normal 0.00-0.09 [facility] Comment on above: Performed By: #### L [id number] ####[facility] (DEFAULT)[address] [place] [address] Basophils/100 WBC (Bld) 0.6 % Normal [facility] Comment on above: Performed By: #### L [id number] ####[facility] (DEFAULT)[address] [facility] [place] [address] DIFF STATUS Electronic Differential Normal [facility] Comment on above: Performed By: #### L [id number] ####[facility] (DEFAULT)[address] [facility] [place] [address] Eosinophils (Bld) [#/Vol] 0.10 10*3/uL Normal 0.00-0.48 [facility] Comment on above: Performed By: #### L [id number] ####[facility] (DEFAULT)[address] [facility] [place] [address] Eosinophils/100 WBC (Bld) 2.1 % Normal [facility] Comment on above: Performed By: #### L [id number] ####[facility] (DEFAULT)[address] [facility] [place] [address] Hematocrit (Bld) [Volume fraction] 37.9 % Low 39.6-48.8 [facility] Comment on above: Performed By: #### L [id number] ####[facility] (DEFAULT)[address] [facility] [place] [address] Hemoglobin (Bld) [Mass/Vol] 12.4 g/dL Low 13.4-16.8 [facility] Comment on above: Performed By: #### L [id number] ####[facility] (DEFAULT)[address] [facility] [place] [address] Immature Grans % 0.6 % Normal [facility] Comment on above: Performed By: #### L [id number] ####[facility] (DEFAULT)[address] [place] [address], [place] [address] Immature Grans Absolute < Normal <=0.07 [facility] Comment on above: Performed By: #### L [id number] ####[facility] (DEFAULT)[address] [facility] [place] [address] Lymphocytes (Bld) [#/Vol] 1.76 10*3/uL Normal 0.83-3.57 [facility] Comment on above: Performed By: #### L [id number] ####[facility] (DEFAULT)[address] [facility] [place] [address] Lymphocytes/100 WBC (Bld) 37.1 % Normal [facility] Comment on above: Performed By: #### L [id number] ####[facility] (DEFAULT)[address] [facility] [place] [address] MCV (RBC) [Entitic vol] 85.0 fL Normal 79.0-94.5 [facility] Comment on above: Performed By: #### L [id number] ####[facility] (DEFAULT)[address] [facility] [place] [address] Mean Cell Hgb 27.8 pg Normal 26.1-33.3 [facility] Comment on above: Performed By: #### L [id number] ####[facility] (DEFAULT)[address] [facility] [place] [address] Mean Cell Hgb Conc 32.7 g/dL Normal 31.9-36.5 [facility] Comment on above: Performed By: #### L [id number] ####[facility] (DEFAULT)[address] [facility] [place] [address] Monocytes (Bld) [#/Vol] 0.66 10*3/uL Normal 0.24-0.93 [facility] Comment on above: Performed By: #### L [id number] ####[facility] (DEFAULT)[address] [facility] [place] [address] Monocytes/100 WBC (Bld) 13.9 % Normal [facility] Comment on above: Performed By: #### L [id number] ####[facility] (DEFAULT)[address] [facility] [place] [address] Nucleated RBC 0.0 /100 WBC Normal <=0.2 [facility] Comment on above: Performed By: #### L [id number] ####[facility] (DEFAULT)[address] [place] [address] Platelet mean volume (Bld) [Entitic vol] 9.3 fL Normal 8.7-12.3 [facility] Comment on above: Performed By: #### L [id number] ####[facility] (DEFAULT)[address] [place] [address] Platelets (Bld) [#/Vol] 262 10*3/uL Normal 146-337 [facility] Comment on above: Performed By: #### L [id number] ####[facility] (DEFAULT)[address] [facility] [place] [address] RBC (Bld) [#/Vol] 4.46 10*6/uL Normal 4.38-5.83 [facility] Comment on above: Performed By: #### L [id number] ####[facility] (DEFAULT)[address] [place] [address] RBC Distribution 13.4 % Normal 10.9-14.[address] [facility] Comment on above: Performed By: #### L [id number] ####[facility] (DEFAULT)[address] [facility] [place] [address] Segs + Bands Auto 45.7 % Normal [facility] Comment on above: Performed By: #### L [id number] ####[facility] (DEFAULT)[address] [place] [address] Segs + Bands,Absolute Auto 2.16 K/uL Normal 1.57-6.19 [facility] Comment on above: Performed By: #### L [id number] ####[facility] (DEFAULT)[address] [facility] [place] [address] WBC (Bld) [#/Vol] 4.74 10*3/uL Normal 3.73-10.10 [facility] Comment on above: Performed By: #### L [id number] ####[facility] (DEFAULT)[address] [place] [address] Basophils (Bld) [#/Vol] K/uL 0.00 - 0.09 K/uL [facility] Basophils/100 WBC (Bld) 0.6 % [facility] Differential cell count method Nom (Bld) Electronic Differential [facility] Eosinophils (Bld) [#/Vol] 0.10 10*3/uL 0.00 - 0.48 K/uL [facility] Eosinophils/100 WBC (Bld) 2.1 % [facility] Erythrocyte distribution width (RBC) [Ratio] 13.4 % 10.9 - 14.3 % [facility] Hematocrit (Bld) [Volume fraction] 37.9 % Low 39.6 - 48.8 % [facility] Hemoglobin (Bld) [Mass/Vol] 12.4 g/dL Low 13.4 - 16.8 g/dL [facility] Immature granulocytes (Bld) [#/Vol] K/uL NINF - 0.07 K/uL [facility] Immature granulocytes/100 WBC (Bld) 0.6 % [facility] Interpretation and review of laboratory results Abnormal [facility] Lymphocytes (Bld) [#/Vol] 1.76 10*3/uL 0.83 - 3.57 K/uL [facility] Lymphocytes/100 WBC (Bld) 37.1 % [facility] MCH (RBC) [Entitic mass] 27.8 pg 26.1 - 33.3 pg [facility] MCHC (RBC) [Mass/Vol] 32.7 g/dL 31.9 - 36.5 g/dL [facility] MCV (RBC) [Entitic vol] 85.0 fL 79.0 - 94.5 fL [facility] Monocytes (Bld) [#/Vol] 0.66 10*3/uL 0.24 - 0.93 K/uL [facility] Monocytes/100 WBC (Bld) 13.9 % [facility] Neutrophils (Bld) [#/Vol] 2.16 10*3/uL 1.57 - 6.19 K/uL [facility] [facility] Nucle[facility] RBC/100 WBC (Bld) [Ratio] 0.0 % NINF [facility] Platelet mean volume (Bld) [Entitic vol] 9.3 fL 8.7 - 12.3 fL [facility] Platelets (Bld) [#/Vol] 262 10*3/uL 146 - 337 K/uL [facility] RBC (Bld) [#/Vol] 4.46 10*6/uL [facility] Segmented neutrophils/100 WBC (Bld) 45.7 % [facility] WBC (Bld) [#/Vol] 4.74 10*3/uL 3.73 - 10. 10 K/uL [facility] CHEM 6 (LYTES, BUN CREA)on 0 08-28-2023 Anion gap [Moles/Vol] 13 mmol/L Normal 7-17 [facility] Comment on above: Performed By: #### C HM6 ####[facility] (DEFAULT)[address] [place] [address] Chloride [Moles/Vol] 103 mmol/L Normal 98-108 [facility] Comment on above: Performed By: #### C HM6 ####[facility] (DEFAULT)[address] [place] [address] CO2 [Moles/Vol] 22 mmol/L Normal 21-31 [facility] Comment on above: Performed By: #### C HM6 ####[facility] (DEFAULT)[address] [facility] [place] [address] Creatinine [Mass/Vol] 1.62 mg/dL High 0.70-1.30 [facility] Comment on above: Performed By: #### C HM6 ####[facility] (DEFAULT)[address] [facility] [place] [address] GFR/1.73 sq M.predicted among non-blacks MDRD (S/P/Bld) [Vol rate/Area] 51 mL/min/{1.73_m2} Low >=60 [facility] Comment on above: Result Comment: Repo rted eGFR is based on the CKD-EPI 2020 equation using creatinine, age, and sex. Performed By: #### C HM6 ####[facility] (DEFAULT)[address] [facility] [place] [address] Potassium [Moles/Vol] 4.3 mmol/L Normal 3.5-5.0 [facility] Comment on above: Performed By: #### C HM6 ####[facility] (DEFAULT)[address] [facility] [place] [address] Sodium [Moles/Vol] 134 mmol/L Low 135-145 [facility] Comment on above: Performed By: #### C HM6 ####[facility] (DEFAULT)[address] [facility] [place] [address] Urea nitrogen [Mass/Vol] 22 mg/dL Normal 7-25 [facility] Comment on above: Performed By: #### C HM6 ####[facility] (DEFAULT)[address] [facility] [place] [address] Urea nitrogen/Creatinine [Mass ratio] 14 mg/mg Normal [facility] Comment on above: Performed By: #### C HM6 ####[facility] (DEFAULT)[address] [facility] [place] [address] Anion gap [Moles/Vol] 13 mmol/L 7 - 17 mmol/L [facility] Chloride [Moles/Vol] 103 mmol/L 98 - 10 8 mmol/L [facility] CO2 [Moles/Vol] 22 mmol/L 21 - 31 mmol/L [facility] Creatinine [Mass/Vol] 1.62 mg/dL High 0.70 - 1.30 mg/dL [facility] eGFR, CKD-EPI, Male 51 Low - PINF [facility] Interpretation and review of laboratory results Abnormal [facility] Potassium [Moles/Vol] 4.3 mmol/L 3.5 - 5.0 mmol/L [facility] Sodium [Moles/Vol] 134 mmol/L Low 135 - 145 mmol/L [facility] Urea nitrogen [Mass/Vol] 22 mg/dL 7 - 25 mg/dL [facility] Urea nitrogen/Creatinine [Mass ratio] 14 mg[facility]PROMIS[facility] RESPIR[facility] Y PANELon 08-28-2023 Adenovirus - Pcr Not detected Normal Not Detected [facility] Comment on above: Order Comment: [...] acid assay. Performed By: #### I CRESP ####[facility] (DEFAULT)[address] [place] [address] Bordetella Parapertussis Not detected Normal Not Detected [facility] Comment on above: Order Comment: [...] acid assay. Performed By: #### I CRESP ####[facility] (DEFAULT)[address] [place] [address] Bordetella Pertussis Not detected Normal Not Detected [facility] Comment on above: Order Comment: [...] acid assay. Performed By: #### I CRESP ####[facility] (DEFAULT)[address] [facility] [place] [address] Chlamydia Pneumoniae Not detected Normal Not Detected [facility] Comment on above: Order Comment: [...] acid assay. Performed By: #### I CRESP ####[facility] (DEFAULT)[address] [place] [address], [place] [address] Coronavirus 229E Not detected Normal Not Detected [facility] Comment on above: Order Comment: [...] acid assay. Performed By: #### I CRESP ####[facility] (DEFAULT)[address] [facility] [place] [address] Coronavirus Hku1 Not detected Normal Not Detected [facility] Comment on above: Order Comment: [...] acid assay. Performed By: #### I CRESP ####[facility] (DEFAULT)[address] [place] [address], [place] [address] Coronavirus Nl63 Not detected Normal Not Detected [facility] Comment on above: Order Comment: [...] acid assay. Performed By: #### I CRESP ####[facility] (DEFAULT)[address] [place] [address], [place] [address] Coronavirus Oc43 Not detected Normal Not Detected [facility] Comment on above: Order Comment: [...] assay. Performed By: #### I CRESP ####[facility] (DEFAULT)[address] [place] [address], [place] [address] Influenza A - Pcr Not detected Normal Not Detected [facility] Comment on above: Order Comment: [...] assay. Performed By: #### I CRESP ####[facility] (DEFAULT)[address] [place] [address], [place] [address] Influenza B - Pcr Not detected Normal Not Detected [facility] Comment on above: Order Comment: [...] assay. Performed By: #### I CRESP ####[facility] (DEFAULT)[address] [place] [address], [place] [address] Metapneumovirus - Pcr Not detected Normal Not Detected [facility] Comment on above: Order Comment: [...] assay. Performed By: #### I CRESP ####[facility] (DEFAULT)[address] [place] [address], [place] [address] Mycoplasma Pneumoniae Not detected Normal Not Detected [facility] Comment on above: Order Comment: [...] acid assay. Performed By: #### I CRESP ####[facility] (DEFAULT)[address] [place] [address], [place] [address] Parainfluenza 1 - Pcr Not detected Normal Not Detected [facility] Comment on above: Order Comment: [...] assay. Performed By: #### I CRESP ####[facility] (DEFAULT)[address] [place] [address], [place] [address] Parainfluenza 2 - Pcr Not detected Normal Not Detected [facility] Comment on above: Order Comment: [...] assay. Performed By: #### I CRESP ####[facility] (DEFAULT)[address] [facility] [place] [address] Parainfluenza 3 - Pcr Not detected Normal Not Detected [facility] Comment on above: Order Comment: [...] assay. Performed By: #### I CRESP ####[facility] (DEFAULT)[address] [place] [address], [place] [address] Parainfluenza 4 - Pcr Not detected Normal Not Detected [facility] Comment on above: Order Comment: [...] acid assay. Performed By: #### I CRESP ####[facility] (DEFAULT)[address] [place] [address], [place] [address] Rhinovirus/Enterovir us - PCR Not detected Normal Not Detected [facility] Comment on above: Order Comment: [...] acid assay. Performed By: #### I CRESP ####[facility] (DEFAULT)[address] [facility] [place] [address] Rsv - Pcr Not detected Normal Not Detected [facility] Comment on above: Order Comment: [...] acid assay. Performed By: #### I CRESP ####[facility] (DEFAULT)[address] [place] [address] SARS-CoV-2 (COVID-19) RNA ESTELITA+probe Ql (Unsp spec) Not detected Normal NOT DETECTED [facility] Comment on above: Order Comment: [...] acid assay. Performed By: #### I CRESP ####[facility] (DEFAULT)[address] [place] [address] Portable XR Chest Viewson Radiology Study observation (narrative) [facility] Respiratory virus DNA+RNA NA A+probe Nom (Unsp spec)Ordered By: Dayami Harris on 08-28-2023 Adenovirus DNA ESTELITA+probe Nom (Unsp spec) Not detected Not Detected [facility] B. parapertussis DNA ESTELITA+probe Ql (Unsp spec) Not detected Not Detected [facility] B. pertussis DNA ESTELITA+probe Ql (Unsp spec) Not detected Not Detected [facility] C. pneumoniae DNA ESTELITA+probe Ql (Unsp spec) Not detected Not Detected [facility] FLUAV RNA ESTELITA+probe Ql (Unsp spec) Not detected Not Detected [facility] FLUBV RNA ESTELITA+probe Ql (Unsp spec) Not detected Not Detected [facility] HCoV 229E RNA ESTELITA+non-probe Ql (Nph) Not detected Not Detected [facility] HCoV HKU1 RNA ESTELITA+non-probe Ql (Nph) Not detected Not Detected [facility] HCoV NL63 RNA ESTELITA+non-probe Ql (Nph) Not detected Not Detected [facility] HCoV OC43 RNA ESTELITA+non-probe Ql (Nph) Not detected Not Detected [facility] hMPV A RNA ESTELITA+probe Ql (Unsp spec) Not detected Not Detected [facility] Interpretation and review of laboratory results Normal [facility] M. pneumoniae DNA ESTELITA+probe Ql (Unsp spec) Not detected Not Detected [facility] Parainfluenza virus 1 RNA ESTELITA+probe Ql (Unsp spec) Not detected Not Detected [facility] Parainfluenza virus 2 RNA ESTELITA+probe Ql (Unsp spec) Not detected Not Detected [facility] Parainfluenza virus 3 RNA ESTELITA+probe Ql (Unsp spec) Not detected Not Detected [facility] Parainfluenza virus 4 RNA ESTELITA+probe Ql (Unsp spec) Not detected Not Detected [facility] Rhinovirus+Enterovir us RNA ESTELITA+probe Ql (Unsp spec) Not detected Not Detected [facility] RSV RNA ESTELITA+probe Ql (Unsp spec) Not detected Not Detected [facility] SARS-CoV-2 (COVID-19) RNA ESTELITA+probe Ql (Unsp spec) Not detected NOT DETECTED [facility] ALBUMINon 04-28-2023 Albumin [Mass/Vol] 4.0 g/dL Normal 3.4-5.0 [facility] Comment on above: Performed By: #### C MP #### [facility] [address] [address] [address] Dwight Waters ALKALINE PHOSPHAon ALP [Catalytic activity/Vol] 106 U/L Normal 46-116 [facility] Comment on above: Performed By: #### F [id number] #### [facility] [address] [place] [address] Dr. Dwight Waters BILIRUBIN CONJUGATED (DIRECT )on 04-28-2023 BILI, CONJUGATED 0.3 mg/dL Critically high 0.0-0.2 [facility] Comment on above: Performed By: #### C MP #### [facility] [address] [place] [address] Dr. Dwight Waters BILIRUBIN TOTALon 04-28-2023 Bilirubin [Mass/Vol] 1.4 mg/dL Critically high 0.2-1.0 [facility] Comment on above: Performed By: #### C MP #### [facility] [address] [place] [address] Dr. Dwight Waters BUNon 04-28-2023 Urea nitrogen [Mass/Vol] 12.0 mg/dL Normal 7.0-18.0 [facility] Comment on above: Performed By: #### U RTPCR #### [facility] [address] [place] [address] Dr. Dwight Waters CALCIUMon 04-28-2023 Calcium [Mass/Vol] 9.3 mg/dL Normal 8.5-10.1 [facility] Comment on above: Performed By: #### U RTPCR #### [facility] [address] [place] [address] Dr. Dwight Waters CBC AUTO DIFFon 04-28-2023 BASO # 0.1 103/ul Normal 0.0-0.1 [facility] Comment on above: Performed By: #### C BC #### [facility] [address] [place] [address] Dr. Dwight Waters Basophils/100 WBC (Bld) 0.9 % Normal 0.2-2.0 [facility] Comment on above: Performed By: #### C BC #### [facility] [address] [place] [address] Dr. Dwight Waters EO # 0.2 103/ul Normal 0.0-0.7 [facility] Comment on above: Performed By: #### C BC #### [facility] [address] [place] [address] Dr. Dwight Waters Eosinophils/100 WBC (Bld) 3.8 % Normal 0.9-7.0 [facility] Comment on above: Performed By: #### C BC #### [facility] [address] [place] [address] Dr. Dwight Waters Erythrocyte distribution width (RBC) [Ratio] 12.5 % Normal 11.0-15.0 [facility] Comment on above: Performed By: #### C BC #### [facility] [address] [place] [address] Dr. Dwight Waters Hematocrit (Bld) [Volume fraction] 49.8 % Normal 42.0-54.0 [facility] Comment on above: Performed By: #### C BC #### [facility] [address] [place] [address] Dr. Dwight Waters Hemoglobin (Bld) [Mass/Vol] 16.4 g/dL Normal 14.0-18.0 [facility] Comment on above: Performed By: #### C BC #### [facility] [address] [place] [address] Dr. Dwight Waters IG # 0.01 10e3/ul Normal 0.00-0.03 [facility] Comment on above: Performed By: #### C BC #### [facility] [address] [place] [address] Dr. Dwight Waters IG % 0.2 % Normal 0.0-0.5 [facility] Comment on above: Performed By: #### C BC #### [facility] [address] [place] [address] Dr. Dwight Waters LYMPH # 2.1 103/ul Normal 1.2-3.8 [facility] Comment on above: Performed By: #### C BC #### [facility] [address] [place] [address] Dr. Dwight Waters Lymphocytes/100 WBC (Bld) 39.1 % Normal 20.5-60.0 [facility] Comment on above: Performed By: #### C BC #### [facility] [address] [place] [address] Dr. Dwight Waters MANUAL DIFF REQ NO Normal [facility] Comment on above: Performed By: #### C BC #### [facility] [address] [place] [address] Dr. Dwight Waters MCH (RBC) [Entitic mass] 28.6 pg Normal 25.9-34.0 [facility] Comment on above: Performed By: #### C BC #### [facility] [address] [place] [address] Dr. Dwight Waters MCHC (RBC) [Mass/Vol] 32.9 g/dL Normal 29.9-35.2 [facility] Comment on above: Performed By: #### C BC #### [facility] [address] [place] [address] Dr. Dwight Waters MCV (RBC) [Entitic vol] 86.9 fL Normal 80.0-94.0 [facility] Comment on above: Performed By: #### C BC #### [facility] [address] [place] [address] Dr. Dwight Waters MONO # 0.6 103/ul Normal 0.3-0.8 [facility] Comment on above: Performed By: #### C BC #### [facility] [address] [place] [address] Dr. Dwight Waters Monocytes/100 WBC (Bld) 10.6 % Normal 1.7-12.0 [facility] Comment on above: Performed By: #### C BC #### [facility] [address] [place] [address] Dr. Dwight Waters NEUT # 2.5 103/ul Normal 1.4-6.5 [facility] Comment on above: Performed By: #### C BC #### [facility] [address] [place] [address] Dr. Dwight Waters Neutrophils/100 WBC (Bld) 45.4 % Normal 43.0-75.0 [facility] Comment on above: Performed By: #### C BC #### [facility] [address] [place] [address] Dr. Dwight Waters Platelet mean volume (Bld) [Entitic vol] 9.3 fL Critically low 9.5-13.5 [facility] Comment on above: Performed By: #### C BC #### [facility] [address] [place] [address] Dr. Dwight Waters PLT 248 103/ul Normal 150-450 [facility] Comment on above: Performed By: #### C BC #### [facility] [address] [place] [address] Dr. Dwight Waters RBC 5.73 106/ul Normal 4.70-6.10 [facility] Comment on above: Performed By: #### C BC #### [facility] [address] [place] [address] Dr. Dwight Waters WBC 5.5 103/ul Normal 4.0-11.0 [facility] Comment on above: Performed By: #### C BC #### [facility] [address] [place] [address] Dr. Dwight Waters CHLORIDEon 04-28-2023 Chloride [Moles/Vol] 107 mmol/L Normal 98-107 [facility] Comment on above: Performed By: #### U RTPCR #### [facility] [address] [place] [address] Dr. Dwight Waters CO2on 04-28-2023 CO2 [Moles/Vol] 28.9 mmol/L Normal 21.0-32.0 [facility] Comment on above: Performed By: #### U RTPCR #### [facility] [address] [place] [address] Dr. Dwight Waters CREATININEon 04-28-2023 Creatinine [Mass/Vol] 1.17 mg/dL Normal 0.70-1.30 [facility] Comment on above: Performed By: #### U RTPCR #### [facility] [address] [place] [address] Dr. Dwight Waters EGFR-AF CITIZEN OF [place] >60 Normal >=60 [facility] Comment on above: Performed By: #### U RTPCR #### [facility] [address] [place] [address] Dr. Dwight Waters EGFR-NON AF CITIZEN OF [place] >60 Normal >=60 [facility] Comment on above: Performed By: #### U RTPCR #### [facility] [address] [address] [address] Dwight Waters GGTon 04-28-2023 Gamma glutamyl transferase [Catalytic activity/Vol] 27 U/L Normal 15-85 [facility] Comment on above: Performed By: #### U RTPCR #### [facility] [address] [place] [address] Dr. Dwight Waters GLUCOSE BLOODon 04-28-2023 Glucose [Mass/Vol] 110 mg/dL Critically high 74-106 [facility] Comment on above: Performed By: #### U RTPCR #### [facility] [address] [place] [address] Dr. Dwight Waters MAGNESIUMon 04-28-2023 Magnesium [Mass/Vol] 1.7 mg/dL Critically low 1.8-2.4 [facility] Comment on above: Performed By: #### U RTPCR #### [facility] [address] [place] [address] Dr. Dwight Waters NAon 04-28-2023 Sodium [Moles/Vol] 144 mmol/L Normal 136-145 [facility] Comment on above: Performed By: #### U RTPCR #### [facility] [address] [place] [address] Dr. Dwight Waters PHOSPHORUSon 04-28-2023 Phosphate [Mass/Vol] 3.2 mg/dL Normal 2.6-4.7 [facility] Comment on above: Performed By: #### U RTPCR #### [facility] [address] [place] [address] Dr. Dwight Waters POTASSIUMon 04-28-2023 Potassium [Moles/Vol] 4.0 mmol/L Normal 3.5-5.1 [facility] Comment on above: Performed By: #### U RTPCR #### [facility] [address] [place] [address] Dr. Dwight Waters SGOTon 04-28-2023 AST [Catalytic activity/Vol] 25 U/L Normal 15-37 [facility] Comment on above: Performed By: #### C MP #### [facility] [address] [place] [address] Dr. Dw[facility] ALT [Catalytic activity/Vol] 40 U/L Normal 16-63 [facility] Comment on above: Performed By: #### C MP #### [facility] [address] [place] [address] Dr. Dwight Waters URINE T PROTEIN CREAT RATIOo n 04-28-2023 Protein (U) [Mass/Vol] 10.1 mg/dL Normal <=12.0 [facility] Comment on above: Performed By: #### U RTPCR #### [facility] [address] [place] [address] Dr. Dwight Waters UR PROT CREAT RAT 0.14 Normal [facility] Comment on above: Performed By: #### U RTPCR #### [facility] [address] [place] [address] Dr. Dwight Waters URINE CREAT 74.40 mg/dL Normal 20.00-300.00 [facility] Comment on above: Performed By: #### U RTPCR #### [facility] [address] [place] [address] Dr. Dwight Waters Office Visiton 04-13-2023 Follow-up visit [id number] George Styles 1970 M Date Provider Department Center 04/13/2023 MIGUEL PARADA [facility] Family History Problem Relation Age of Onset Coronary artery disease Mother Coronary artery disease Father Family Status - Relation Status Age at Mother Father Level of Service:07428 NE OFFICE/OUTPATIENT ESTABLISHED LOW MDM 20-29 MIN Reason for Visit and Comments: Hypertension [042467] Hyperlipidemia [182] Normal [facility] BK VIRUS PCR QUANTon 023 BKV DNA QUANT PCR PLASMA Negative Normal Negative [facility] Comment on above: Result Comment: No B K DNA detected. . The linear range of the assay is 22 - 100,000,000 IU/mL. Performed By: #### B KVIRUS #### [facility] [address] [place] [address] Dr. Dwight Waters Log10 BKV DNA Plasma Normal [facility] Comment on above: Performed By: #### B KVIRUS #### [facility] [address] [place] [address] Dr. Dwight Waters FK506 (TACROLIMUS) WHOLE BLO ODon 03-04-2023 Tacrolimus (FK506), Blood 5.9 ng/mL Normal 2.0-20.0 [facility] Comment on above: Result Comment: Trou gh (immediately following transplant) 15.0 . Trough (steady state, 2 weeks or more after transplant): 3.0 - 8.0 . Performed by LC-MS/MS technology. Performed By: #### C MP #### [facility] [address] [place] [address] Dr. Dwight Waters ALBUMINon 03-02-2023 Albumin [Mass/Vol] 3.9 g/dL Normal 3.4-5.0 [facility] Comment on above: Performed By: #### U RTPCR #### [facility] [address] [place] [address] Dr. Dwight Waters ALKALINE PHOSPHAon ALP [Catalytic activity/Vol] 105 U/L Normal 46-116 [facility] Comment on above: Performed By: #### U RTPCR #### [facility] [address] [place] [address] Dr. Dwight Waters BILIRUBIN CONJUGATED (DIRECT )on 03-02-2023 BILI, CONJUGATED 0.2 mg/dL Normal 0.0-0.2 [facility] Comment on above: Performed By: #### U RTPCR #### [facility] [address] [place] [address] Dr. Dwight Waters BILIRUBIN TOTALon 03-02-2023 Bilirubin [Mass/Vol] 0.9 mg/dL Normal 0.2-1.0 [facility] Comment on above: Performed By: #### U RTPCR #### [facility] [address] [place] [address] Dr. Dwight Waters CBC AUTO DIFFon 03-02-2023 BASO # 0.1 103/ul Normal 0.0-0.1 [facility] Comment on above: Performed By: #### C BC #### [facility] [address] [address] [address] Dwight Waters Basophils/100 WBC (Bld) 0.9 % Normal 0.2-2.0 [facility] Comment on above: Performed By: #### C BC #### [facility] [address] [address] [address] Dwight Waters EO # 0.2 103/ul Normal 0.0-0.7 [facility] Comment on above: Performed By: #### C BC #### [facility] [address] [place] [address] Dr. Dwight Waters Eosinophils/100 WBC (Bld) 3.5 % Normal 0.9-7.0 [facility] Comment on above: Performed By: #### C BC #### [facility] [address] [place] [address] Dr. Dwight Waters Erythrocyte distribution width (RBC) [Ratio] 12.7 % Normal 11.0-15.0 [facility] Comment on above: Performed By: #### C BC #### [facility] [address] [place] [address] Dr. Dwight Waters Hematocrit (Bld) [Volume fraction] 48.2 % Normal 42.0-54.0 [facility] Comment on above: Performed By: #### C BC #### [facility] [address] [place] [address] Dr. Dwight Waters Hemoglobin (Bld) [Mass/Vol] 15.9 g/dL Normal 14.0-18.0 [facility] Comment on above: Performed By: #### C BC #### [facility] [address] [place] [address] Dr. Dwight Wtaers IG # 0.01 10e3/ul Normal 0.00-0.03 [facility] Comment on above: Performed By: #### C BC #### [facility] [address] [place] [address] Dr. Dwight Waters IG % 0.2 % Normal 0.0-0.5 [facility] Comment on above: Performed By: #### C BC #### [facility] [address] [place] [address] Dr. Dwight Waters LYMPH # 2.1 103/ul Normal 1.2-3.8 [facility] Comment on above: Performed By: #### C BC #### [facility] [address] [place] [address] Dr. Dwight Waters Lymphocytes/100 WBC (Bld) 37.4 % Normal 20.5-60.0 [facility] Comment on above: Performed By: #### C BC #### [facility] [address] [place] [address] Dr. Dwight Waters MANUAL DIFF REQ NO Normal [facility] Comment on above: Performed By: #### C BC #### [facility] [address] [place] [address] Dr. Dwight aWters MCH (RBC) [Entitic mass] 28.3 pg Normal 25.9-34.0 [facility] Comment on above: Performed By: #### C BC #### [facility] [address] [place] [address] Dr. Dwight Waters MCHC (RBC) [Mass/Vol] 33.0 g/dL Normal 29.9-35.2 [facility] Comment on above: Performed By: #### C BC #### [facility] [address] [place] [address] Dr. Dwight Waters MCV (RBC) [Entitic vol] 85.8 fL Normal 80.0-94.0 [facility] Comment on above: Performed By: #### C BC #### [facility] [address] [place] [address] Dr. Dwight Waters MONO # 0.6 103/ul Normal 0.3-0.8 [facility] Comment on above: Performed By: #### C BC #### [facility] [address] [place] [address] Dr. Dwight Waters Monocytes/100 WBC (Bld) 10.2 % Normal 1.7-12.0 [facility] Comment on above: Performed By: #### C BC #### [facility] [address] [address] [address] Dwight Waters NEUT # 2.7 103/ul Normal 1.4-6.5 [facility] Comment on above: Performed By: #### C BC #### [facility] [address] [place] [address] Dr. Dwight Waters Neutrophils/100 WBC (Bld) 47.8 % Normal 43.0-75.0 [facility] Comment on above: Performed By: #### C BC #### [facility] [address] [place] [address] Dr. Dwight Waters Platelet mean volume (Bld) [Entitic vol] 9.3 fL Critically low 9.5-13.5 [facility] Comment on above: Performed By: #### C BC #### [facility] [address] [place] [address] Dr. Dwight Waters PLT 241 103/ul Normal 150-450 [facility] Comment on above: Performed By: #### C BC #### [facility] [address] [place] [address] Dr. Dwight Waters RBC 5.62 106/ul Normal 4.70-6.10 [facility] Comment on above: Performed By: #### C BC #### [facility] [address] [place] [address] Dr. Dwight Waters WBC 5.7 103/ul Normal 4.0-11.0 [facility] Comment on above: Performed By: #### C BC #### [facility] [address] [place] [address] Dr. Dwight Waters GGTon 03-02-2023 Gamma glutamyl transferase [Catalytic activity/Vol] 25 U/L Normal 15-85 [facility] Comment on above: Performed By: #### U RTPCR #### [facility] [address] [place] [address] Dr. Dwight Waters MAGNESIUMon 03-02-2023 Magnesium [Mass/Vol] 1.6 mg/dL Critically low 1.8-2.4 [facility] Comment on above: Performed By: #### U RTPCR #### [facility] [address] [address] [address] Dwight Waters PHOSPHORUSon 03-02-2023 Phosphate [Mass/Vol] 3.6 mg/dL Normal 2.6-4.7 [facility] Comment on above: Performed By: #### U RTPCR #### [facility] [address] [address] [address] Dwight Waters PROF CHEM 8 (BAS METB)on Anion gap [Moles/Vol] 9.4 mmol/L Normal [facility] Comment on above: Performed By: #### U RTPCR #### [facility] [address] [address] [address] Dwight Waters Calcium [Mass/Vol] 9.3 mg/dL Normal 8.5-10.1 [facility] Comment on above: Performed By: #### U RTPCR #### [facility] [address] [place] [address] Dr. Dwight Waters Chloride [Moles/Vol] 108 mmol/L Critically high 98-107 [facility] Comment on above: Performed By: #### U RTPCR #### [facility] [address] [place] [address] Dr. Dwight Waters CO2 [Moles/Vol] 27.2 mmol/L Normal 21.0-32.0 [facility] Comment on above: Performed By: #### U RTPCR #### [facility] [address] [place] [address] Dr. Dwight Waters Creatinine [Mass/Vol] 1.12 mg/dL Normal 0.70-1.30 [facility] Comment on above: Performed By: #### U RTPCR #### [facility] [address] [place] [address] Dr. Dwight Waters EGFR-AF CITIZ[place] >60 Normal >=60 [facility] Comment on above: Performed By: #### U RTPCR #### [facility] [address] [place] [address] Dr. Dwight Waters EGFR-NON AF CITIZEN OF [place] >60 Normal >=60 [facility] Comment on above: Performed By: #### U RTPCR #### [facility] [address] [address] [address] Dwight Waters Glucose [Mass/Vol] 113 mg/dL Critically high 74-106 [facility] Comment on above: Performed By: #### U RTPCR #### [facility] [address] [address] [address] Dwight Waters Potassium [Moles/Vol] 3.6 mmol/L Normal 3.5-5.1 [facility] Comment on above: Performed By: #### U RTPCR #### [facility] [address] [address] [address] Dwight Waters Sodium [Moles/Vol] 141 mmol/L Normal 136-145 [facility] Comment on above: Performed By: #### U RTPCR #### [facility] [address] [place] [address] Dr. Dwight Waters Urea nitrogen [Mass/Vol] 14.0 mg/dL Normal 7.0-18.0 [facility] Comment on above: Performed By: #### U RTPCR #### [facility] [address] [place] [address] Dr. Dwight Waters Urea nitrogen/Creatinine [Mass ratio] 12.5 mg/mg Normal [facility] Comment on above: Performed By: #### U RTPCR #### [facility] [address] [place] [address] Dr. Dwight Waters SGOTon 03-02-2023 AST [Catalytic activity/Vol] 20 U/L Normal 15-37 [facility] Comment on above: Performed By: #### U RTPCR #### [facility] [address] [place] [address] Dr. Dwight Waters SGPTon 03-02-2023 ALT [Catalytic activity/Vol] 30 U/L Normal 16-63 [facility] Comment on above: Performed By: #### U RTPCR #### [facility] [address] [place] [address] Dr. Dwight Waters URINE T PROTEIN CREAT RATIOo n 03-02-2023 Protein (U) [Mass/Vol] 10.3 mg/dL Normal <=12.0 [facility] Comment on above: Performed By: #### U RTPCR #### [facility] [address] [place] [address] Dr. Dwight Waters UR PROT CREAT RAT 0.15 Normal [facility] Comment on above: Performed By: #### U RTPCR #### [facility] [address] [place] [address] Dr. Dwight Waters URINE CREAT 68.96 mg/dL Normal 20.00-300.00 [facility] Comment on above: Performed By: #### U RTPCR #### [facility] [address] [place] [address] Dr. Dwight Waters BK VIRUS PCR QUANTon 023 BKV DNA QUANT PCR PLASMA Negative Normal Negative [facility] Comment on above: Result Comment: No B K DNA detected. . The linear range of the assay is 22 - 100,000,000 IU/mL. Performed By: #### C MP #### [facility] [address] [place] [address] Dr. Dwight Waters Log10 BKV DNA Plasma Normal [facility] Comment on above: Performed By: #### C MP #### [facility] [address] [place] [address] Dr. Dwight Waters FK506 (TACROLIMUS) WHOLE BLO ODon 12-31-2022 Tacrolimus (FK506), Blood 5.6 ng/mL Normal 2.0-20.0 [facility] Comment on above: Result Comment: Trou gh (immediately following transplant) 15.0 . Trough (steady state, 2 weeks or more after transplant): 3.0 - 8.0 . Performed by LC-MS/MS technology. Performed By: #### C MP #### [facility] [address] [place] [address] Dr. Dwight Waters ALKALINE PHOSPHAon 3 ALP [Catalytic activity/Vol] 96 U/L Normal 46-116 [facility] Comment on above: Performed By: #### C BC #### [facility] [address] [place] [address] Dr. Dwight Waters BILIRUBIN CONJUGATED (DIRECT )on 12-29-2022 BILI, CONJUGATED 0.3 mg/dL Critically high 0.0-0.2 [facility] Comment on above: Performed By: #### C BC #### [facility] [address] [place] [address] Dr. Dwight Waters BILIRUBIN TOTALon 12-29-2022 Bilirubin [Mass/Vol] 1.1 mg/dL Critically high 0.2-1.0 [facility] Comment on above: Performed By: #### C BC #### [facility] [address] [place] [address] Dr. Dwight Waters CBC AUTO DIFFon 12-29-2022 BASO # 0.1 103/ul Normal 0.0-0.1 [facility] Comment on above: Performed By: #### C MP #### [facility] [address] [place] [address] Dr. Dwight Waters Basophils/100 WBC (Bld) 0.8 % Normal 0.2-2.0 [facility] Comment on above: Performed By: #### C MP #### [facility] [address] [place] [address] Dr. Dwight Waters EO # 0.2 103/ul Normal 0.0-0.7 [facility] Comment on above: Performed By: #### C MP #### [facility] [address] [place] [address] Dr. Dwight Waters Eosinophils/100 WBC (Bld) 3.0 % Normal 0.9-7.0 [facility] Comment on above: Performed By: #### C MP #### [facility] [address] [place] [address] Dr. Dwight Waters Erythrocyte distribution width (RBC) [Ratio] 12.9 % Normal 11.0-15.0 [facility] Comment on above: Performed By: #### C MP #### [facility] [address] [place] [address] Dr. Dwight Waters Hematocrit (Bld) [Volume fraction] 46.9 % Normal 42.0-54.0 [facility] Comment on above: Performed By: #### C MP #### [facility] [address] [place] [address] Dr. Dwight Waters Hemoglobin (Bld) [Mass/Vol] 16.1 g/dL Normal 14.0-18.0 [facility] Comment on above: Performed By: #### C MP #### [facility] [address] [place] [address] Dr. Dwight Waters IG # 0.01 10e3/ul Normal 0.00-0.03 [facility] Comment on above: Performed By: #### C MP #### [facility] [address] [place] [address] Dr. Dwight Waters IG % 0.2 % Normal 0.0-0.5 [facility] Comment on above: Performed By: #### C MP #### [facility] [address] [place] [address] Dr. Dwight Waters LYMPH # 1.8 103/ul Normal 1.2-3.8 [facility] Comment on above: Performed By: #### C MP #### [facility] [address] [place] [address] Dr. Dwight Waters Lymphocytes/100 WBC (Bld) 27.9 % Normal 20.5-60.0 [facility] Comment on above: Performed By: #### C MP #### [facility] [address] [place] [address] Dr. Dwight Waters MANUAL DIFF REQ NO Normal [facility] Comment on above: Performed By: #### C MP #### [facility] [address] [place] [address] Dr. Dwight Waters MCH (RBC) [Entitic mass] 28.5 pg Normal 25.9-34.0 [facility] Comment on above: Performed By: #### C MP #### [facility] [address] [place] [address] Dr. Dwight Waters MCHC (RBC) [Mass/Vol] 34.3 g/dL Normal 29.9-35.2 [facility] Comment on above: Performed By: #### C MP #### [facility] [address] [place] [address] Dr. Dwight Waters MCV (RBC) [Entitic vol] 83.2 fL Normal 80.0-94.0 [facility] Comment on above: Performed By: #### C MP #### [facility] [address] [place] [address] Dr. Dwight Waters MONO # 0.5 103/ul Normal 0.3-0.8 [facility] Comment on above: Performed By: #### C MP #### [facility] [address] [address] [address] Dwight Waters Monocytes/100 WBC (Bld) 8.1 % Normal 1.7-12.0 [facility] Comment on above: Performed By: #### C MP #### [facility] [address] [place] [address] Dr. Dwight Waters NEUT # 3.8 103/ul Normal 1.4-6.5 [facility] Comment on above: Performed By: #### C MP #### [facility] [address] [place] [address] Dr. Dwight Waters Neutrophils/100 WBC (Bld) 60.0 % Normal 43.0-75.0 [facility] Comment on above: Performed By: #### C MP #### [facility] [address] [place] [address] Dr. Dwight Waters Platelet mean volume (Bld) [Entitic vol] 9.2 fL Critically low 9.5-13.5 [facility] Comment on above: Performed By: #### C MP #### [facility] [address] [place] [address] Dr. Dwight Waters PLT 225 103/ul Normal 150-450 [facility] Comment on above: Performed By: #### C MP #### [facility] [address] [place] [address] Dr. Dwight Waters RBC 5.64 106/ul Normal 4.70-6.10 [facility] Comment on above: Performed By: #### C MP #### [facility] [address] [place] [address] Dr. Dwight Waters WBC 6.3 103/ul Normal 4.0-11.0 [facility] Comment on above: Performed By: #### C MP #### [facility] [address] [place] [address] Dr. Dwight Waters GGTon 12-29-2022 Gamma glutamyl transferase [Catalytic activity/Vol] 24 U/L Normal 15-85 [facility] Comment on above: Performed By: #### C MP #### [facility] [address] [place] [address] Dr. Dwight Waters LIPID PROFILEon 12-29-2022 CHOL-HDL RATIO NORM SEE BELOW Normal [facility] Comment on above: Result Comment: 3.3 - 4.4 LOW RISK 4.4 - 7.1 AVERAGE RISK 7.1 - 11.0 MODERATE RISK >11.0 HIGH RISK Performed By: #### U RTPCR #### [facility] [address] [place] [address] Dr. Dwight Waters Cholesterol [Mass/Vol] 87 mg/dL Normal <=200 [facility] Comment on above: Performed By: #### U RTPCR #### [facility] [address] [place] [address] Dr. Dwight Waters Cholesterol in HDL [Mass/Vol] 44 mg/dL Normal 40-60 [facility] Comment on above: Performed By: #### U RTPCR #### [facility] [address] [place] [address] Dr. Dwight Waters Cholesterol in LDL [Mass/Vol] 33.0 mg/dL Normal [facility] Comment on above: Performed By: #### U RTPCR #### [facility] [address] [place] [address] Dr. Dwight Waters Cholesterol.total/Ch olesterol in HDL [Mass ratio] 2.0 {ratio} Normal [facility] Comment on above: Performed By: #### U RTPCR #### [facility] [address] [place] [address] Dr. Dwight Waters HDL NORMAL > or = 60 mg/dl - LO W CARDIOVASCULAR RISK <40 mg/dl - HIGH CARDIOVASCULAR RISK Normal [facility] Comment on above: Performed By: #### U RTPCR #### [facility] [address] [place] [address] Dr. Dwight Waters LDL CALC NORMAL SEE BELOW Normal [facility] Comment on above: Result Comment: <100 mg/dl OPTIMAL 100 - 129 mg/dl NEAR OR ABOVE OPTIMAL 130 - 159 mg/dl BORDERLINE HIGH 160 - 189 mg/dl HIGH >190 mg/dl VERY HIGH Performed By: #### U RTPCR #### [facility] [address] [place] [address] Dr. Dwight Waters Triglyceride [Mass/Vol] 50 mg/dL Normal <=150 [facility] Comment on above: Performed By: #### U RTPCR #### [facility] [address] [place] [address] Dr. Dwight Waters VLDL CALC 10.0 mg/dL Normal [facility] Comment on above: Performed By: #### U RTPCR #### [facility] [address] [place] [address] Dr. Dwight Waters MAGNESIUMon 12-29-2022 Magnesium [Mass/Vol] 1.6 mg/dL Critically low 1.8-2.4 [facility] Comment on above: Performed By: #### C BC #### [facility] [address] [place] [address] Dr. Dwight Waters RENAL FUNCTION PANELon 12-29 Albumin [Mass/Vol] 3.9 g/dL Normal 3.4-5.0 [facility] Comment on above: Performed By: #### C BC #### [facility] [address] [place] [address] Dr. Dwight Waters Calcium [Mass/Vol] 9.2 mg/dL Normal 8.5-10.1 [facility] Comment on above: Performed By: #### C BC #### [facility] [address] [place] [address] Dr. Dwight Waters Chloride [Moles/Vol] 109 mmol/L Critically high 98-107 [facility] Comment on above: Performed By: #### C BC #### [facility] [address] [place] [address] Dr. Dwight Waters CO2 [Moles/Vol] 27.0 mmol/L Normal 21.0-32.0 [facility] Comment on above: Performed By: #### C BC #### [facility] [address] [address] [address] Dwight Waters Creatinine [Mass/Vol] 1.02 mg/dL Normal 0.70-1.30 [facility] Comment on above: Performed By: #### C BC #### [facility] [address] [address] [address] Dwight Waters EGFR-AF CITIZ[place] >60 Normal >=60 [facility] Comment on above: Performed By: #### C BC #### [facility] [address] [place] [address] Dr. Dwight Waters EGFR-NON AF CITIZEN [place] >60 Normal >=60 [facility] Comment on above: Performed By: #### C BC #### [facility] [address] [place] [address] Dr. Dwight Waters Glucose [Mass/Vol] 117 mg/dL Critically high 74-106 [facility] Comment on above: Performed By: #### C BC #### [facility] [address] [address] [address] Dwight Waters Phosphate [Mass/Vol] 3.2 mg/dL Normal 2.6-4.7 [facility] Comment on above: Performed By: #### C BC #### [facility] [address] [place] [address] Dr. Dwight Waters Potassium [Moles/Vol] 4.1 mmol/L Normal 3.5-5.1 [facility] Comment on above: Performed By: #### C BC #### [facility] [address] [address] [address] Dwight Waters Sodium [Moles/Vol] 144 mmol/L Normal 136-145 [facility] Comment on above: Performed By: #### C BC #### [facility] [address] [place] [address] Dr. Dwight Waters Urea nitrogen [Mass/Vol] 13.0 mg/dL Normal 7.0-18.0 [facility] Comment on above: Performed By: #### C BC #### [facility] [address] [place] [address] Dr. Dwight Waters SGOTon 12-29-2022 AST [Catalytic activity/Vol] 21 U/L Normal 15-37 [facility] Comment on above: Performed By: #### C BC #### [facility] [address] [place] [address] Dr. Dwight Waters SGPTon 12-29-2022 ALT [Catalytic activity/Vol] 32 U/L Normal 16-63 [facility] Comment on above: Performed By: #### C BC #### [facility] [address] [place] [address] Dr. Dwight Waters URINE T PROTEIN CREAT RATIOo n 12-29-2022 Protein (U) [Mass/Vol] 14.3 mg/dL Critically high <=12.0 [facility] Comment on above: Performed By: #### U RTPCR #### [facility] [address] [place] [address] Dr. Dwight Waters UR PROT CREAT RAT 0.17 Normal [facility] Comment on above: Performed By: #### U RTPCR #### [facility] [address] [place] [address] Dr. Dwight Waters URINE CREAT 86.58 mg/dL Normal 20.00-300.00 [facility] Comment on above: Performed By: #### U RTPCR #### [facility] [address] [place] [address] Dr. Dwight Waters FK506 (TACROLIMUS) WHOLE BLO ODon 11-06-2022 Tacrolimus (FK506), Blood 4.9 ng/mL Normal 2.0-20.0 [facility] Comment on above: Result Comment: Trou gh (immediately following transplant) 15.0 . Trough (steady state, 2 weeks or more after transplant): 3.0 - 8.0 . Performed by LC-MS/MS technology. Performed By: #### U RTPCR #### [facility] [address] [place] [address] Dr. Dwight Waters ALKALINE PHOSPHAon ALP [Catalytic activity/Vol] 86 U/L Normal 46-116 [facility] Comment on above: Performed By: #### U RTPCR #### [facility] [address] [place] [address] Dr. Dwight Waters BILIRUBIN CONJUGATED (DIRECT )on 11-04-2022 BILI, CONJUGATED 0.2 mg/dL Normal 0.0-0.2 [facility] Comment on above: Performed By: #### U RTPCR #### [facility] [address] [place] [address] Dr. Dwight Waters BILIRUBIN TOTALon 11-04-2022 Bilirubin [Mass/Vol] 0.8 mg/dL Normal 0.2-1.0 [facility] Comment on above: Performed By: #### U RTPCR #### [facility] [address] [place] [address] Dr. Dwight Wtaers CBC AUTO DIFFon 11-04-2022 BASO # 0.1 103/ul Normal 0.0-0.1 [facility] Comment on above: Performed By: #### U RTPCR #### [facility] [address] [place] [address] Dr. Dwight Waters Basophils/100 WBC (Bld) 0.9 % Normal 0.2-2.0 [facility] Comment on above: Performed By: #### U RTPCR #### [facility] [address] [place] [address] Dr. Dwight Waters EO # 0.2 103/ul Normal 0.0-0.7 [facility] Comment on above: Performed By: #### U RTPCR #### [facility] [address] [place] [address] Dr. Dwight Waters Eosinophils/100 WBC (Bld) 3.7 % Normal 0.9-7.0 [facility] Comment on above: Performed By: #### U RTPCR #### [facility] [address] [place] [address] Dr. Dwight Waters Erythrocyte distribution width (RBC) [Ratio] 12.9 % Normal 11.0-15.0 [facility] Comment on above: Performed By: #### U RTPCR #### [facility] [address] [place] [address] Dr. Dwight Waters Hematocrit (Bld) [Volume fraction] 48.3 % Normal 42.0-54.0 [facility] Comment on above: Performed By: #### U RTPCR #### [facility] [address] [place] [address] Dr. Dwight Waters Hemoglobin (Bld) [Mass/Vol] 15.6 g/dL Normal 14.0-18.0 [facility] Comment on above: Performed By: #### U RTPCR #### [facility] [address] [place] [address] Dr. Dwight Waters IG # 0.01 10e3/ul Normal 0.00-0.03 [facility] Comment on above: Performed By: #### U RTPCR #### [facility] [address] [place] [address] Dr. Dwight Waters IG % 0.2 % Normal 0.0-0.5 [facility] Comment on above: Performed By: #### U RTPCR #### [facility] [address] [place] [address] Dr. Dwight Waters LYMPH # 1.9 103/ul Normal 1.2-3.8 [facility] Comment on above: Performed By: #### U RTPCR #### [facility] [address] [place] [address] Dr. Dwight Waters Lymphocytes/100 WBC (Bld) 33.0 % Normal 20.5-60.0 [facility] Comment on above: Performed By: #### U RTPCR #### [facility] [address] [place] [address] Dr. Dwight Waters MANUAL DIFF REQ NO Normal [facility] Comment on above: Performed By: #### U RTPCR #### [facility] [address] [place] [address] Dr. Dwight Waters MCH (RBC) [Entitic mass] 27.6 pg Normal 25.9-34.0 [facility] Comment on above: Performed By: #### U RTPCR #### [facility] [address] [address] [address] Dwight Waters MCHC (RBC) [Mass/Vol] 32.3 g/dL Normal 29.9-35.2 [facility] Comment on above: Performed By: #### U RTPCR #### [facility] [address] [address] [address] Dwight Waters MCV (RBC) [Entitic vol] 85.5 fL Normal 80.0-94.0 [facility] Comment on above: Performed By: #### U RTPCR #### [facility] [address] [address] [address] Dwight Waters MONO # 0.5 103/ul Normal 0.3-0.8 [facility] Comment on above: Performed By: #### U RTPCR #### [facility] [address] [place] [address] Dr. Dwight Waters Monocytes/100 WBC (Bld) 8.8 % Normal 1.7-12.0 [facility] Comment on above: Performed By: #### U RTPCR #### [facility] [address] [place] [address] Dr. Dwight Waters NEUT # 3.1 103/ul Normal 1.4-6.5 [facility] Comment on above: Performed By: #### U RTPCR #### [facility] [address] [place] [address] Dr. Dwight Waters Neutrophils/100 WBC (Bld) 53.4 % Normal 43.0-75.0 [facility] Comment on above: Performed By: #### U RTPCR #### [facility] [address] [place] [address] Dr. Dwight Waters Platelet mean volume (Bld) [Entitic vol] 9.2 fL Critically low 9.5-13.5 [facility] Comment on above: Performed By: #### U RTPCR #### [facility] [address] [place] [address] Dr. Dwight Waters PLT 255 103/ul Normal 150-450 [facility] Comment on above: Performed By: #### U RTPCR #### [facility] [address] [place] [address] Dr. Dwight Waters RBC 5.65 106/ul Normal 4.70-6.10 [facility] Comment on above: Performed By: #### U RTPCR #### [facility] [address] [place] [address] Dr. Dwight Waters WBC 5.7 103/ul Normal 4.0-11.0 [facility] Comment on above: Performed By: #### U RTPCR #### [facility] [address] [place] [address] Dr. Dwight Waters GGTon 11-04-2022 Gamma glutamyl transferase [Catalytic activity/Vol] 22 U/L Normal 15-85 [facility] Comment on above: Performed By: #### U RTPCR #### [facility] [address] [place] [address] Dr. Dwight Waters MAGNESIUMon 11-04-2022 Magnesium [Mass/Vol] 1.8 mg/dL Normal 1.8-2.4 [facility] Comment on above: Performed By: #### U RTPCR #### [facility] [address] [place] [address] Dr. Dwight Waters RENAL FUNCTION PANELon 11-04 Albumin [Mass/Vol] 3.8 g/dL Normal 3.4-5.0 [facility] Comment on above: Performed By: #### U RTPCR #### [facility] [address] [place] [address] Dr. Dwight Waters Calcium [Mass/Vol] 9.3 mg/dL Normal 8.5-10.1 [facility] Comment on above: Performed By: #### U RTPCR #### [facility] [address] [place] [address] Dr. Dwight Waters Chloride [Moles/Vol] 107 mmol/L Normal 98-107 [facility] Comment on above: Performed By: #### U RTPCR #### [facility] [address] [place] [address] Dr. Dwight Waters CO2 [Moles/Vol] 29.2 mmol/L Normal 21.0-32.0 [facility] Comment on above: Performed By: #### U RTPCR #### [facility] [address] [address] [address] Dwight Waters Creatinine [Mass/Vol] 1.07 mg/dL Normal 0.70-1.30 [facility] Comment on above: Performed By: #### U RTPCR #### [facility] [address] [address] [address] Dwight Waters EGFR-AF CITIZEN [place] >60 Normal >=60 [facility] Comment on above: Performed By: #### U RTPCR #### [facility] [address] [place] [address] Dr. Dwight Waters EGFR-NON AF CITIZEN OF [place] >60 Normal >=60 [facility] Comment on above: Performed By: #### U RTPCR #### [facility] [address] [place] [address] Dr. Dwight Waters Glucose [Mass/Vol] 106 mg/dL Normal 74-106 [facility] Comment on above: Performed By: #### U RTPCR #### [facility] [address] [place] [address] Dr. Dwight Waters Phosphate [Mass/Vol] 2.8 mg/dL Normal 2.6-4.7 [facility] Comment on above: Performed By: #### U RTPCR #### [facility] [address] [place] [address] Dr. Dwight Waters Potassium [Moles/Vol] 4.1 mmol/L Normal 3.5-5.1 [facility] Comment on above: Performed By: #### U RTPCR #### [facility] [address] [place] [address] Dr. Dwight Waters Sodium [Moles/Vol] 143 mmol/L Normal 136-145 [facility] Comment on above: Performed By: #### U RTPCR #### [facility] [address] [place] [address] Dr. Dwight Waters Urea nitrogen [Mass/Vol] 12.0 mg/dL Normal 7.0-18.0 [facility] Comment on above: Performed By: #### U RTPCR #### [facility] [address] [place] [address] Dr. Dwight Waters SGOTon 11-04-2022 AST [Catalytic activity/Vol] 19 U/L Normal 15-37 [facility] Comment on above: Performed By: #### U RTPCR #### [facility] [address] [place] [address] Dr. Dwight Waters SGPTon 11-04-2022 ALT [Catalytic activity/Vol] 28 U/L Normal 16-63 [facility] Comment on above: Performed By: #### U RTPCR #### [facility] [address] [place] [address] Dr. Dwight Waters URINE T PROTEIN CREAT RATIOo n 11-04-2022 Protein (U) [Mass/Vol] 10.7 mg/dL Normal <=12.0 [facility] Comment on above: Performed By: #### U RTPCR #### [facility] [address] [place] [address] Dr. Dwight Waters UR PROT CREAT RAT 0.13 Normal [facility] Comment on above: Performed By: #### U RTPCR #### [facility] [address] [place] [address] Dr. Dwight Waters URINE CREAT 84.50 mg/dL Normal 20.00-300.00 [facility] Comment on above: Performed By: #### U RTPCR #### [facility] [address] [place] [address] Dr. Dwight Waters FK506 (TACROLIMUS) WHOLE BLO ODon 09-18-2022 Tacrolimus (FK506), Blood 4.6 ng/mL Normal 2.0-20.0 [facility] Comment on above: Result Comment: Trou gh (immediately following transplant) 15.0 . Trough (steady state, 2 weeks or more after transplant): 3.0 - 8.0 . Performed by LC-MS/MS technology. Performed By: #### U RTPCR #### [facility] [address] [place] [address] Dr. Dwight Waters BK VIRUS PCR QUANTon 022 BKV DNA QUANT PCR PLASMA Negative Normal Negative [facility] Comment on above: Result Comment: No B K DNA detected. . The linear range of the assay is 22 - 100,000,000 IU/mL. Performed By: #### U RTPCR #### [facility] [address] [place] [address] Dr. Dwight Waters Log10 BKV DNA Plasma Normal [facility] Comment on above: Performed By: #### U RTPCR #### [facility] [address] [place] [address] Dr. Dwight Waters ALKALINE PHOSPHAon ALP [Catalytic activity/Vol] 92 U/L Normal 46-116 [facility] Comment on above: Performed By: #### U RTPCR #### [facility] [address] [place] [address] Dr. Dwight Waters BILIRUBIN CONJUGATED (DIRECT )on 09-15-2022 BILI, CONJUGATED 0.3 mg/dL Critically high 0.0-0.2 [facility] Comment on above: Performed By: #### U RTPCR #### [facility] [address] [place] [address] Dr. Dwight Waters BILIRUBIN TOTALon 09-15-2022 Bilirubin [Mass/Vol] 1.1 mg/dL Critically high 0.2-1.0 [facility] Comment on above: Performed By: #### U RTPCR #### [facility] [address] [place] [address] Dr. Dwight Waters CBC AUTO DIFFon 09-15-2022 BASO # 0.1 103/ul Normal 0.0-0.1 [facility] Comment on above: Performed By: #### C BC #### [facility] [address] [place] [address] Dr. Dwight Waters Basophils/100 WBC (Bld) 0.8 % Normal 0.2-2.0 [facility] Comment on above: Performed By: #### C BC #### [facility] [address] [place] [address] Dr. Dwight Waters EO # 0.2 103/ul Normal 0.0-0.7 [facility] Comment on above: Performed By: #### C BC #### [facility] [address] [place] [address] Dr. Dwight Waters Eosinophils/100 WBC (Bld) 3.5 % Normal 0.9-7.0 [facility] Comment on above: Performed By: #### C BC #### [facility] [address] [place] [address] Dr. Dwight Waters Erythrocyte distribution width (RBC) [Ratio] 13.0 % Normal 11.0-15.0 [facility] Comment on above: Performed By: #### C BC #### [facility] [address] [place] [address] Dr. Dwight Waters Hematocrit (Bld) [Volume fraction] 50.0 % Normal 42.0-54.0 [facility] Comment on above: Performed By: #### C BC #### [facility] [address] [place] [address] Dr. Dwight Waters Hemoglobin (Bld) [Mass/Vol] 16.0 g/dL Normal 14.0-18.0 [facility] Comment on above: Performed By: #### C BC #### [facility] [address] [place] [address] Dr. Dwight Waters IG # 0.02 10e3/ul Normal 0.00-0.03 [facility] Comment on above: Performed By: #### C BC #### [facility] [address] [place] [address] Dr. Dwight Waters IG % 0.3 % Normal 0.0-0.5 [facility] Comment on above: Performed By: #### C BC #### [facility] [address] [place] [address] Dr. Dwight Waters LYMPH # 1.8 103/ul Normal 1.2-3.8 [facility] Comment on above: Performed By: #### C BC #### [facility] [address] [place] [address] Dr. Dwight Waters Lymphocytes/100 WBC (Bld) 26.5 % Normal 20.5-60.0 [facility] Comment on above: Performed By: #### C BC #### [facility] [address] [place] [address] Dr. Dwight Waters MANUAL DIFF REQ NO Normal [facility] Comment on above: Performed By: #### C BC #### [facility] [address] [place] [address] Dr. Dwight Waters MCH (RBC) [Entitic mass] 28.1 pg Normal 25.9-34.0 [facility] Comment on above: Performed By: #### C BC #### [facility] [address] [place] [address] Dr. Dwight Waters MCHC (RBC) [Mass/Vol] 32.0 g/dL Normal 29.9-35.2 [facility] Comment on above: Performed By: #### C BC #### [facility] [address] [place] [address] Dr. Dwight Waters MCV (RBC) [Entitic vol] 87.9 fL Normal 80.0-94.0 [facility] Comment on above: Performed By: #### C BC #### [facility] [address] [place] [address] Dr. Dwight Waters MONO # 0.5 103/ul Normal 0.3-0.8 [facility] Comment on above: Performed By: #### C BC #### [facility] [address] [place] [address] Dr. Dwight Waters Monocytes/100 WBC (Bld) 8.1 % Normal 1.7-12.0 [facility] Comment on above: Performed By: #### C BC #### [facility] [address] [place] [address] Dr. Dwight Waters NEUT # 4.0 103/ul Normal 1.4-6.5 [facility] Comment on above: Performed By: #### C BC #### [facility] [address] [place] [address] Dr. Dwight Waters Neutrophils/100 WBC (Bld) 60.8 % Normal 43.0-75.0 [facility] Comment on above: Performed By: #### C BC #### [facility] [address] [place] [address] Dr. Dwight Waters Platelet mean volume (Bld) [Entitic vol] 9.4 fL Critically low 9.5-13.5 [facility] Comment on above: Performed By: #### C BC #### [facility] [address] [place] [address] Dr. Dwight Waters PLT 265 103/ul Normal 150-450 [facility] Comment on above: Performed By: #### C BC #### [facility] [address] [place] [address] Dr. Dwight Waters RBC 5.69 106/ul Normal 4.70-6.10 [facility] Comment on above: Performed By: #### C BC #### [facility] [address] [place] [address] Dr. Dwight Waters WBC 6.6 103/ul Normal 4.0-11.0 [facility] Comment on above: Performed By: #### C BC #### [facility] [address] [place] [address] Dr. Dwight Waters GGTon 09-15-2022 Gamma glutamyl transferase [Catalytic activity/Vol] 23 U/L Normal 15-85 [facility] Comment on above: Performed By: #### U RTPCR #### [facility] [address] [place] [address] Dr. Dwight Waters MAGNESIUMon 09-15-2022 Magnesium [Mass/Vol] 1.8 mg/dL Normal 1.8-2.4 [facility] Comment on above: Performed By: #### U RTPCR #### [facility] [address] [place] [address] Dr. Dwight Waters RENAL FUNCTION PANELon 09-15 Albumin [Mass/Vol] 4.1 g/dL Normal 3.4-5.0 [facility] Comment on above: Performed By: #### C BC #### [facility] [address] [place] [address] Dr. Dwight Waters Calcium [Mass/Vol] 9.3 mg/dL Normal 8.5-10.1 [facility] Comment on above: Performed By: #### C BC #### [facility] [address] [address] [address] Dwight Waters Chloride [Moles/Vol] 107 mmol/L Normal 98-107 [facility] Comment on above: Performed By: #### C BC #### [facility] [address] [address] [address] Dwight Waters CO2 [Moles/Vol] 25.6 mmol/L Normal 21.0-32.0 [facility] Comment on above: Performed By: #### C BC #### [facility] [address] [place] [address] Dr. Dwight Waters Creatinine [Mass/Vol] 1.01 mg/dL Normal 0.70-1.30 [facility] Comment on above: Performed By: #### C BC #### [facility] [address] [place] [address] Dr. Dwight Waters EGFR-AF CITIZ[place] >60 Normal >=60 [facility] Comment on above: Performed By: #### C BC #### [facility] [address] [place] [address] Dr. Dwight Waters EGFR-NON AF CITIZ[place] OF [place] >60 Normal >=60 [facility] Comment on above: Performed By: #### C BC #### [facility] [address] [place] [address] Dr. Dwight Waters Glucose [Mass/Vol] 119 mg/dL Critically high 74-106 [facility] Comment on above: Performed By: #### C BC #### [facility] [address] [place] [address] Dr. Dwight Waters Phosphate [Mass/Vol] 2.8 mg/dL Normal 2.6-4.7 [facility] Comment on above: Performed By: #### C BC #### [facility] [address] [place] [address] Dr. Dwight Waters Potassium [Moles/Vol] 4.0 mmol/L Normal 3.5-5.1 [facility] Comment on above: Performed By: #### C BC #### [facility] [address] [place] [address] Dr. Dwight Waters Sodium [Moles/Vol] 141 mmol/L Normal 136-145 [facility] Comment on above: Performed By: #### C BC #### [facility] [address] [place] [address] Dr. Dwight Waters Urea nitrogen [Mass/Vol] 15.0 mg/dL Normal 7.0-18.0 [facility] Comment on above: Performed By: #### C BC #### [facility] [address] [place] [address] Dr. Dwight Waters SGOTon 09-15-2022 AST [Catalytic activity/Vol] 18 U/L Normal 15-37 [facility] Comment on above: Performed By: #### U RTPCR #### [facility] [address] [place] [address] Dr. Dwight Waters SGPTon 09-15-2022 ALT [Catalytic activity/Vol] 32 U/L Normal 16-63 [facility] Comment on above: Performed By: #### C BC #### [facility] [address] [place] [address] Dr. Dwight Watesr URINE T PROTEIN CREAT RATIOo n 09-15-2022 Protein (U) [Mass/Vol] 14.1 mg/dL Critically high <=12.0 [facility] Comment on above: Performed By: #### U RTPCR #### [facility] [address] [place] [address] Dr. Dwight Waters UR PROT CREAT RAT 0.14 Normal [facility] Comment on above: Performed By: #### U RTPCR #### [facility] [address] [place] [address] Dr. Dwight Waters URINE CREAT 98.89 mg/dL Normal 20.00-300.00 [facility] Comment on above: Performed By: #### U RTPCR #### [facility] [address] [place] [address] Dr. Dwight Waters US CAROTID ART BILon [...] MÓNICA JIMENEZ Date: 2022-08-28 13:20 Normal [facility] FK506 (TACROLIMUS) WHOLE BLO ODon 08-17-2022 Tacrolimus (FK506), Blood 9.9 ng/mL Normal 2.0-20.0 [facility] Comment on above: Result Comment: Trou gh (immediately following transplant) 15.0 . Trough (steady state, 2 weeks or more after transplant): 3.0 - 8.0 . Performed by LC-MS/MS technology. Performed By: #### F [id number] #### [facility] [address] [place] [address] Dr. Dwight Waters BK VIRUS PCR QUANTon 022 BKV DNA QUANT PCR PLASMA Negative Normal Negative [facility] Comment on above: Result Comment: No B K DNA detected. . The linear range of the assay is 22 - 100,000,000 IU/mL. Performed By: #### U RTPCR #### [facility] [address] [place] [address] Dr. Dwight Waters Log10 BKV DNA Plasma Normal [facility] Comment on above: Performed By: #### U RTPCR #### [facility] [address] [place] [address] Dr. Dwight Waters ALBUMINon 08-14-2022 Albumin [Mass/Vol] 4.2 g/dL Normal 3.4-5.0 [facility] Comment on above: Performed By: #### F [id number] #### [facility] [address] [place] [address] Dr. Dwight Waters ALKALINE PHOSPHAon ALP [Catalytic activity/Vol] 92 U/L Normal 46-116 [facility] Comment on above: Performed By: #### C BC #### [facility] [facility] [address] [place] [address] Dr. Dwight Watesr BILIRUBIN CONJUGATED (DIRECT )on 08-14-2022 BILI, CONJUGATED 0.3 mg/dL Critically high 0.0-0.2 [facility] Comment on above: Performed By: #### F [id number] #### [facility] [address] [place] [address] Dr. Dwight Waters BILIRUBIN TOTALon 08-14-2022 Bilirubin [Mass/Vol] 1.5 mg/dL Critically high 0.2-1.0 [facility] Comment on above: Performed By: #### F [id number] #### [facility] [address] [place] [address] Dr. Dwight Waters BUNon 08-14-2022 Urea nitrogen [Mass/Vol] 11.0 mg/dL Normal 7.0-18.0 [facility] Comment on above: Performed By: #### C BC #### [facility] [address] [place] [address] Dr. Dwight Waters CALCIUMon 08-14-2022 Calcium [Mass/Vol] 9.4 mg/dL Normal 8.5-10.1 [facility] Comment on above: Performed By: #### F [id number] #### [facility] [address] [place] [address] Dr. Dwight Waters CBC AUTO DIFFon 08-14-2022 BASO # 0.0 103/ul Normal 0.0-0.1 [facility] Comment on above: Performed By: #### C MP #### [facility] [address] [place] [address] Dr. Dwight Waters Basophils/100 WBC (Bld) 0.5 % Normal 0.2-2.0 [facility] Comment on above: Performed By: #### C MP #### [facility] [address] [place] [address] Dr. Dwight Waters EO # 0.2 103/ul Normal 0.0-0.7 [facility] Comment on above: Performed By: #### C MP #### [facility] [address] [place] [address] Dr. Dwight Waters Eosinophils/100 WBC (Bld) 2.6 % Normal 0.9-7.0 [facility] Comment on above: Performed By: #### C MP #### [facility] [address] [place] [address] Dr. Dwight Waters Erythrocyte distribution width (RBC) [Ratio] 13.1 % Normal 11.0-15.0 [facility] Comment on above: Performed By: #### C MP #### [facility] [address] [place] [address] Dr. Dwight Waters Hematocrit (Bld) [Volume fraction] 47.0 % Normal 42.0-54.0 [facility] Comment on above: Performed By: #### C MP #### [facility] [address] [place] [address] Dr. Dwight Waters Hemoglobin (Bld) [Mass/Vol] 15.3 g/dL Normal 14.0-18.0 [facility] Comment on above: Performed By: #### C MP #### [facility] [address] [place] [address] Dr. Dwight Waters IG # 0.01 10e3/ul Normal 0.00-0.03 [facility] Comment on above: Performed By: #### C MP #### [facility] [address] [place] [address] Dr. Dwight Waters IG % 0.1 % Normal 0.0-0.5 [facility] Comment on above: Performed By: #### C MP #### [facility] [address] [place] [address] Dr. Dwight Waters LYMPH # 2.3 103/ul Normal 1.2-3.8 [facility] Comment on above: Performed By: #### C MP #### [facility] [address] [place] [address] Dr. Dwight Waters Lymphocytes/100 WBC (Bld) 29.8 % Normal 20.5-60.0 [facility] Comment on above: Performed By: #### C MP #### [facility] [address] [place] [address] Dr. Dwight Waters MANUAL DIFF REQ NO Normal [facility] Comment on above: Performed By: #### C MP #### [facility] [address] [address] [address] Dwight Waters MCH (RBC) [Entitic mass] 28.2 pg Normal 25.9-34.0 [facility] Comment on above: Performed By: #### C MP #### [facility] [address] [address] [address] Dwight Waters MCHC (RBC) [Mass/Vol] 32.6 g/dL Normal 29.9-35.2 [facility] Comment on above: Performed By: #### C MP #### [facility] [address] [place] [address] Dr. Dwight Waters MCV (RBC) [Entitic vol] 86.7 fL Normal 80.0-94.0 [facility] Comment on above: Performed By: #### C MP #### [facility] [address] [place] [address] Dr. Dwight Waters MONO # 0.7 103/ul Normal 0.3-0.8 [facility] Comment on above: Performed By: #### C MP #### [facility] [address] [place] [address] Dr. Dwight Waters Monocytes/100 WBC (Bld) 8.5 % Normal 1.7-12.0 [facility] Comment on above: Performed By: #### C MP #### [facility] [address] [place] [address] Dr. Dwight Waters NEUT # 4.5 103/ul Normal 1.4-6.5 [facility] Comment on above: Performed By: #### C MP #### [facility] [address] [place] [address] Dr. Dwight Waters Neutrophils/100 WBC (Bld) 58.5 % Normal 43.0-75.0 [facility] Comment on above: Performed By: #### C MP #### [facility] [address] [place] [address] Dr. Dwight Waters Platelet mean volume (Bld) [Entitic vol] 9.7 fL Normal 9.5-13.5 [facility] Comment on above: Performed By: #### C MP #### [facility] [address] [address] [address] Dwight Waters PLT 266 103/ul Normal 150-450 [facility] Comment on above: Performed By: #### C MP #### [facility] [address] [address] [address] Dwight Waters RBC 5.42 106/ul Normal 4.70-6.10 [facility] Comment on above: Performed By: #### C MP #### [facility] [address] [address] [address] Dwight Waters WBC 7.6 103/ul Normal 4.0-11.0 [facility] Comment on above: Performed By: #### C MP #### [facility] [address] [place] [address] Dr. Dwight Waters CHLORIDEon 08-14-2022 Chloride [Moles/Vol] 104 mmol/L Normal 98-107 [facility] Comment on above: Performed By: #### C BC #### [facility] [address] [place] [address] Dr. Dwight Waters CO2on 08-14-2022 CO2 [Moles/Vol] 27.9 mmol/L Normal 21.0-32.0 [facility] Comment on above: Performed By: #### C BC #### [facility] [address] [place] [address] Dr. Dwight Waters CREATININEon 08-14-2022 Creatinine [Mass/Vol] 1.08 mg/dL Normal 0.70-1.30 [facility] Comment on above: Performed By: #### C BC #### [facility] [address] [place] [address] Dr. Dwight Waters EGFR-AF CITIZEN OF [place] >60 Normal >=60 [facility] Comment on above: Performed By: #### C BC #### [facility] [address] [place] [address] Dr. Dwight Waters EGFR-NON AF CITIZEN OF [place] >60 Normal >=60 [facility] Comment on above: Performed By: #### C BC #### [facility] [address] [place] [address] Dr. Dwight Watesr GGTon 08-14-2022 Gamma glutamyl transferase [Catalytic activity/Vol] 24 U/L Normal 15-85 [facility] Comment on above: Performed By: #### F [id number] #### [facility] [address] [place] [address] Dr. Dwight Waters GLUCOSE BLOODon 08-14-2022 Glucose [Mass/Vol] 111 mg/dL Critically high 74-106 [facility] Comment on above: Performed By: #### C BC #### [facility] [address] [place] [address] Dr. Dwight Waters MAGNESIUMon 08-14-2022 Magnesium [Mass/Vol] 1.4 mg/dL Critically low 1.8-2.4 [facility] Comment on above: Performed By: #### C BC #### [facility] [address] [place] [address] Dr. Dwight Waters NAon 08-14-2022 Sodium [Moles/Vol] 140 mmol/L Normal 136-145 [facility] Comment on above: Performed By: #### F [id number] #### [facility] [address] [place] [address] Dr. Dwight Waters PHOSPHORUSon 08-14-2022 Phosphate [Mass/Vol] 3.1 mg/dL Normal 2.6-4.7 [facility] Comment on above: Performed By: #### C BC #### [facility] [address] [place] [address] Dr. Dwight Waters POTASSIUMon 08-14-2022 Potassium [Moles/Vol] 3.5 mmol/L Normal 3.5-5.1 [facility] Comment on above: Performed By: #### C BC #### [facility] [address] [place] [address] Dr. Dwight Waters SGOTon 08-14-2022 AST [Catalytic activity/Vol] 17 U/L Normal 15-37 [facility] Comment on above: Performed By: #### F [id number] #### [facility] [address] [place] [address] Dr. Dwight Waters SGPTon 08-14-2022 ALT [Catalytic activity/Vol] 22 U/L Normal 16-63 [facility] Comment on above: Performed By: #### F [id number] #### [facility] [address] [place] [address] Dr. Dwight Waters URINE T PROTEIN CREAT RATIOo n 08-14-2022 Protein (U) [Mass/Vol] 10.7 mg/dL Normal <=12.0 [facility] Comment on above: Performed By: #### F [id number] #### [facility] [address] [place] [address] Dr. Dwight Waters UR PROT CREAT RAT 0.10 Normal [facility] Comment on above: Performed By: #### F [id number] #### [facility] [address] [place] [address] Dr. Dwight Waters URINE CREAT 104.28 mg/dL Normal 20.00-300.00 [facility] Comment on above: Performed By: #### F [id number] #### [facility] [address] [place] [address] Dr. Dwight Waters NEPHROSTOMY TUBE REMOVALon 0 07-07-2022 Ryan Hurt MD 07/07/2022 3:45 PM NEPHROSTOMY TUBE REMOVAL Date/Time: 07/07/2022 2:10 PM Performed by: Ryan Hurt MD Authorized by: Ryan Hurt MD Nephrostomy tube removal: Right Pre-procedure details: [...] Assisting physician present for entire procedure: yes [facility] Study observation (narrative) [facility] FK506 (TACROLIMUS) WHOLE BLO ODon 07-06-2022 Tacrolimus (FK506), Blood 9.5 ng/mL Normal 2.0-20.0 [facility] Comment on above: Result Comment: Trou gh (immediately following transplant) 15.0 . Trough (steady state, 2 weeks or more after transplant): 3.0 - 8.0 . Performed by LC-MS/MS technology. Performed By: #### C MP #### [facility] [address] [place] [address] Dr. Dwight Waters ALBUMINon 07-03-2022 Albumin [Mass/Vol] 3.7 g/dL Normal 3.4-5.0 [facility] Comment on above: Performed By: #### U RTPCR #### [facility] [address] [place] [address] Dr. Dwight Waters ALKALINE PHOSPHAon ALP [Catalytic activity/Vol] 76 U/L Normal 46-116 [facility] Comment on above: Performed By: #### U RTPCR #### [facility] [address] [place] [address] Dr. Dwight Waters BILIRUBIN CONJUGATED (DIRECT )on 07-03-2022 BILI, CONJUGATED 0.3 mg/dL Critically high 0.0-0.2 [facility] Comment on above: Performed By: #### C BC #### [facility] [address] [place] [address] Dr. Dwight Waters BILIRUBIN TOTALon 07-03-2022 Bilirubin [Mass/Vol] 1.4 mg/dL Critically high 0.2-1.0 [facility] Comment on above: Performed By: #### C BC #### [facility] [address] [place] [address] Dr. Dwight Waters BUNon 07-03-2022 Urea nitrogen [Mass/Vol] 15.0 mg/dL Normal 7.0-18.0 [facility] Comment on above: Performed By: #### C BC #### [facility] [address] [place] [address] Dr. Dwight Waters CALCIUMon 07-03-2022 Calcium [Mass/Vol] 9.4 mg/dL Normal 8.5-10.1 [facility] Comment on above: Performed By: #### U RTPCR #### [facility] [address] [place] [address] Dr. Dwight Waters CBC AUTO DIFFon 07-03-2022 BASO # 0.0 103/ul Normal 0.0-0.1 [facility] Comment on above: Performed By: #### U RTPCR #### [facility] [address] [place] [address] Dr. Dwight Waters Basophils/100 WBC (Bld) 0.6 % Normal 0.2-2.0 [facility] Comment on above: Performed By: #### U RTPCR #### [facility] [address] [place] [address] Dr. Dwight Waters EO # 0.2 103/ul Normal 0.0-0.7 [facility] Comment on above: Performed By: #### U RTPCR #### [facility] [address] [place] [address] Dr. Dwight Waters Eosinophils/100 WBC (Bld) 3.5 % Normal 0.9-7.0 [facility] Comment on above: Performed By: #### U RTPCR #### [facility] [address] [place] [address] Dr. Dwight Waters Erythrocyte distribution width (RBC) [Ratio] 12.9 % Normal 11.0-15.0 [facility] Comment on above: Performed By: #### U RTPCR #### [facility] [address] [place] [address] Dr. Dwight Waters Hematocrit (Bld) [Volume fraction] 44.2 % Normal 42.0-54.0 [facility] Comment on above: Performed By: #### U RTPCR #### [facility] [address] [place] [address] Dr. Dwight Waters Hemoglobin (Bld) [Mass/Vol] 14.6 g/dL Normal 14.0-18.0 [facility] Comment on above: Performed By: #### U RTPCR #### [facility] [address] [place] [address] Dr. Dwight Waters IG # 0.02 10e3/ul Normal 0.00-0.03 [facility] Comment on above: Performed By: #### U RTPCR #### [facility] [address] [place] [address] Dr. Dwight Waters IG % 0.3 % Normal 0.0-0.5 [facility] Comment on above: Performed By: #### U RTPCR #### [facility] [address] [place] [address] Dr. Dwight Waters LYMPH # 2.0 103/ul Normal 1.2-3.8 [facility] Comment on above: Performed By: #### U RTPCR #### [facility] [address] [place] [address] Dr. Dwight Waters Lymphocytes/100 WBC (Bld) 28.4 % Normal 20.5-60.0 [facility] Comment on above: Performed By: #### U RTPCR #### [facility] [address] [place] [address] Dr. Dwight Waters MANUAL DIFF REQ NO Normal [facility] Comment on above: Performed By: #### U RTPCR #### [facility] [address] [place] [address] Dr. Dwight Waters MCH (RBC) [Entitic mass] 28.6 pg Normal 25.9-34.0 [facility] Comment on above: Performed By: #### U RTPCR #### [facility] [address] [place] [address] Dr. Dwight Waters MCHC (RBC) [Mass/Vol] 33.0 g/dL Normal 29.9-35.2 [facility] Comment on above: Performed By: #### U RTPCR #### [facility] [address] [address] [address] Dwight Waters MCV (RBC) [Entitic vol] 86.7 fL Normal 80.0-94.0 [facility] Comment on above: Performed By: #### U RTPCR #### [facility] [address] [address] [address] Dwight Waters MONO # 0.6 103/ul Normal 0.3-0.8 [facility] Comment on above: Performed By: #### U RTPCR #### [facility] [address] [address] [address] Dwight Waters Monocytes/100 WBC (Bld) 9.1 % Normal 1.7-12.0 [facility] Comment on above: Performed By: #### U RTPCR #### [facility] [address] [place] [address] Dr. Dwight Waters NEUT # 4.0 103/ul Normal 1.4-6.5 [facility] Comment on above: Performed By: #### U RTPCR #### [facility] [address] [place] [address] Dr. Dwight Waters Neutrophils/100 WBC (Bld) 58.1 % Normal 43.0-75.0 [facility] Comment on above: Performed By: #### U RTPCR #### [facility] [address] [address] [address] Dwight Waters Platelet mean volume (Bld) [Entitic vol] 9.5 fL Normal 9.5-13.5 [facility] Comment on above: Performed By: #### U RTPCR #### [facility] [address] [place] [address] Dr. Dwight Waters PLT 292 103/ul Normal 150-450 [facility] Comment on above: Performed By: #### U RTPCR #### [facility] [address] [place] [address] Dr. Dwight Waters RBC 5.10 106/ul Normal 4.70-6.10 [facility] Comment on above: Performed By: #### U RTPCR #### [facility] [address] [place] [address] Dr. Dwight Waters WBC 6.9 103/ul Normal 4.0-11.0 [facility] Comment on above: Performed By: #### U RTPCR #### [facility] [address] [place] [address] Dr. Dwight Waters CHLORIDEon 07-03-2022 Chloride [Moles/Vol] 108 mmol/L Critically high 98-107 [facility] Comment on above: Performed By: #### C BC #### [facility] [address] [place] [address] Dr. Dwight Waters CO2on 07-03-2022 CO2 [Moles/Vol] 25.2 mmol/L Normal 21.0-32.0 [facility] Comment on above: Performed By: #### C BC #### [facility] [address] [place] [address] Dr. Dwight Waters CREATININEon 07-03-2022 Creatinine [Mass/Vol] 1.03 mg/dL Normal 0.70-1.30 [facility] Comment on above: Performed By: #### U RTPCR #### [facility] [address] [place] [address] Dr. Dwight Waters EGFR-AF CITIZ[place] >60 Normal >=60 [facility] Comment on above: Performed By: #### U RTPCR #### [facility] [address] [place] [address] Dr. Dwight Waters EGFR-NON AF CITIZEN OF [place] >60 Normal >=60 [facility] Comment on above: Performed By: #### U RTPCR #### [facility] [address] [place] [address] Dr. Dwight Waters GGTon 07-03-2022 Gamma glutamyl transferase [Catalytic activity/Vol] 31 U/L Normal 15-85 [facility] Comment on above: Performed By: #### U RTPCR #### [facility] [address] [place] [address] Dr. Dwight Waters GLUCOSE BLOODon 07-03-2022 Glucose [Mass/Vol] 119 mg/dL Critically high 74-106 [facility] Comment on above: Performed By: #### U RTPCR #### [facility] [address] [place] [address] Dr. Dwight Waters MAGNESIUMon 07-03-2022 Magnesium [Mass/Vol] 1.4 mg/dL Critically low 1.8-2.4 [facility] Comment on above: Performed By: #### C BC #### [facility] [address] [place] [address] Dr. Dwight Waters NAon 07-03-2022 Sodium [Moles/Vol] 142 mmol/L Normal 136-145 [facility] Comment on above: Performed By: #### C MP #### [facility] [address] [place] [address] Dr. Dwight Waters PHOSPHORUSon 07-03-2022 Phosphate [Mass/Vol] 3.4 mg/dL Normal 2.6-4.7 [facility] Comment on above: Performed By: #### C BC #### [facility] [address] [place] [address] Dr. Dwight Waters POTASSIUMon 07-03-2022 Potassium [Moles/Vol] 4.1 mmol/L Normal 3.5-5.1 [facility] Comment on above: Performed By: #### C BC #### [facility] [address] [place] [address] Dr. Dwight Waters SGOTon 07-03-2022 AST [Catalytic activity/Vol] 14 U/L Critically low 15-37 [facility] Comment on above: Performed By: #### C BC #### [facility] [address] [place] [address] Dr. Dwight Waters SGPTon 07-03-2022 ALT [Catalytic activity/Vol] 25 U/L Normal 16-63 [facility] Comment on above: Performed By: #### C BC #### [facility] [address] [place] [address] Dr. Dwight Waters US KIDNEYSon 07-03-2022 US KIDNEYS Ultrasound kidneys, bilateral HISTORY: Transplant of kidney , pain in the right lower quadrant COMPARISON: None. TECHNIQUE: Transabdominal ultrasound imaging of both kidneys was performed. FINDINGS: The [place] kidneys are diffusely echogenic and atrophic with cortical thinning. The right kidney measures 8.3 x 3.5 x 4.07 m and the left measures 9.9 x 3.8 x 3.6 cm. No hydronephrosis of the [place] kidneys. There is a renal transplant in [...] stone involving the renal transplant. 2. Atrophic [place] kidneys. 3. Normal bladder. Electronically authenticated by: ARCELIA PIZARRO Date: 2022-07-03 17:22 [address] [facility] CT Abdomen and Pelvis WO con traston 06-27-2022 IMPRESSION: 1. Both [place] kidneys are atrophic with improvement in right-sided [...] Adrenals: Adrenal glands are unremarkable. Kidneys: Both [place] kidneys are atrophic. Interval improvement in right [place] kidney hydronephrosis since May 15, 2022. Status [...] Adrenals: Adrenal glands are unremarkable. Kidneys: Both [place] kidneys are atrophic. Interval improvement in right [place] kidney hydronephrosis since May 15, 2022. Status [...] aggressive osseous lesions. IMPRESSION IMPRESSION: 1. Both [place] kidneys are atrophic with improvement in right-sided hydronephrosis since May 15, 2022. 2. 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 No hydronephrosis. No discrete perinephric collection. 3. Partially imaged postsurgical changes related to prior liver transplant. 4. The bladder is decompressed, limiting evaluation. U [facility] Radiology Study observation (narrative) [facility] CT Abdomen and Pelvis WO con trastOrdered By: Gera Lu on 06-27-2022 [facility] Work Phone: CBC AUTO DIFFon 06-18-2022 BASO # 0.0 103/ul Normal 0.0-0.1 [facility] Comment on above: Performed By: #### U RTPCR #### [facility] [address] [address] [address] Dwight Waters Basophils/100 WBC (Bld) 0.5 % Normal 0.2-2.0 [facility] Comment on above: Performed By: #### U RTPCR #### [facility] [address] [address] [address] Dwight Waters EO # 0.2 103/ul Normal 0.0-0.7 [facility] Comment on above: Performed By: #### U RTPCR #### [facility] [address] [address] [address] Dwight Waters Eosinophils/100 WBC (Bld) 2.3 % Normal 0.9-7.0 [facility] Comment on above: Performed By: #### U RTPCR #### [facility] [address] [place] [address] Dr. Dwight Waters Erythrocyte distribution width (RBC) [Ratio] 12.9 % Normal 11.0-15.0 [facility] Comment on above: Performed By: #### U RTPCR #### [facility] [address] [place] [address] Dr. Dwight Waters Hematocrit (Bld) [Volume fraction] 41.2 % Critically low 42.0-54.0 [facility] Comment on above: Performed By: #### U RTPCR #### [facility] [address] [place] [address] Dr. Dwight Waters Hemoglobin (Bld) [Mass/Vol] 13.3 g/dL Critically low 14.0-18.0 [facility] Comment on above: Performed By: #### U RTPCR #### [facility] [address] [place] [address] Dr. Dwight Waters IG # 0.04 10e3/ul Critically high 0.00-0.03 [facility] Comment on above: Performed By: #### U RTPCR #### [facility] [address] [place] [address] Dr. Dwight Waters IG % 0.5 % Normal 0.0-0.5 [facility] Comment on above: Performed By: #### U RTPCR #### [facility] [address] [place] [address] Dr. Dwight Waters LYMPH # 2.0 103/ul Normal 1.2-3.8 [facility] Comment on above: Performed By: #### U RTPCR #### [facility] [address] [place] [address] Dr. Dwight Waters Lymphocytes/100 WBC (Bld) 22.9 % Normal 20.5-60.0 [facility] Comment on above: Performed By: #### U RTPCR #### [facility] [address] [place] [address] Dr. Dwight Waters MANUAL DIFF REQ NO Normal [facility] Comment on above: Performed By: #### U RTPCR #### [facility] [address] [place] [address] Dr. Dwight Waters MCH (RBC) [Entitic mass] 28.7 pg Normal 25.9-34.0 [facility] Comment on above: Performed By: #### U RTPCR #### [facility] [address] [place] [address] Dr. Dwight Waters MCHC (RBC) [Mass/Vol] 32.3 g/dL Normal 29.9-35.2 [facility] Comment on above: Performed By: #### U RTPCR #### [facility] [address] [place] [address] Dr. Dwight Waters MCV (RBC) [Entitic vol] 88.8 fL Normal 80.0-94.0 [facility] Comment on above: Performed By: #### U RTPCR #### [facility] [address] [place] [address] Dr. Dwight Waters MONO # 0.8 103/ul Normal 0.3-0.8 [facility] Comment on above: Performed By: #### U RTPCR #### [facility] [address] [place] [address] Dr. Dwight Waters Monocytes/100 WBC (Bld) 9.7 % Normal 1.7-12.0 [facility] Comment on above: Performed By: #### U RTPCR #### [facility] [address] [place] [address] Dr. Dwight Waters NEUT # 5.6 103/ul Normal 1.4-6.5 [facility] Comment on above: Performed By: #### U RTPCR #### [facility] [address] [place] [address] Dr. Dwight Waters Neutrophils/100 WBC (Bld) 64.1 % Normal 43.0-75.0 [facility] Comment on above: Performed By: #### U RTPCR #### [facility] [address] [place] [address] Dr. Dwight Waters Platelet mean volume (Bld) [Entitic vol] 10.0 fL Normal 9.5-13.5 [facility] Comment on above: Performed By: #### U RTPCR #### [facility] [address] [place] [address] Dr. Dwight Waters PLT 270 103/ul Normal 150-450 [facility] Comment on above: Performed By: #### U RTPCR #### [facility] [address] [place] [address] Dr. Dwight Waters RBC 4.64 106/ul Critically low 4.70-6.10 [facility] Comment on above: Performed By: #### U RTPCR #### [facility] [address] [place] [address] Dr. Dwight Waters WBC 8.7 103/ul Normal 4.0-11.0 [facility] Comment on above: Performed By: #### U RTPCR #### [facility] [address] [place] [address] Dr. Dwight Waters CULTURE URINEon 06-18-2022 CULTURE URINE Culture Observations : NO GROWTH. Normal [facility] Comment on above: Performed By: #### U RTPCR #### [facility] [address] [place] [address] Dr. Dwight Waters [facility] SARS-CoV-2 (COVID-19) RNA ESTELITA+probe Ql (Unsp spec) Not detected Normal NOT DETECTED [facility] Comment on above: Result Comment: [...] for this test is supported by the [employer] of [employer] and Human Service's declaration that [...] used). Performed By: #### C BC #### [facility] [address] [place] [address] Dr. Dwight Waters ER URINE PROFILEon 2 Bilirubin Ql (U) Negative Normal NEGATIVE [facility] Comment on above: Performed By: #### U RTPCR #### [facility] [address] [place] [address] Dr. Dwight Waters Clarity (U) CLEAR Normal CLEAR [facility] Comment on above: Performed By: #### U RTPCR #### [facility] [address] [place] [address] Dr. Dwight Waters Color (U) YELLOW Normal YELLOW [facility] Comment on above: Performed By: #### U RTPCR #### [facility] [address] [place] [address] Dr. Dwight Waters ERUAHD A micrscopic examina tion will be performed if indicated. Normal [facility] Comment on above: Performed By: #### U RTPCR #### [facility] [address] [place] [address] Dr. Dwight Waters Glucose Ql (U) Negative Normal NEGATIVE [facility] Comment on above: Performed By: #### U RTPCR #### [facility] [address] [place] [address] Dr. Dwight Waters Hemoglobin Ql (U) LARGE Abnormal NEGATIVE [facility] Comment on above: Performed By: #### U RTPCR #### [facility] [address] [place] [address] Dr. Dwight Waters Ketones Ql (U) Negative Normal NEGATIVE [facility] Comment on above: Performed By: #### U RTPCR #### [facility] [address] [place] [address] Dr. Dwight Waters LEUKOCYTES TRACE Abnormal NEGATIVE [facility] Comment on above: Performed By: #### U RTPCR #### [facility] [address] [place] [address] Dr. Dwight Waters Nitrite Ql (U) Negative Normal NEGATIVE [facility] Comment on above: Performed By: #### U RTPCR #### [facility] [address] [place] [address] Dr. Dwight Waters pH (U) 6.0 [pH] Normal 5-9 [facility] Comment on above: Performed By: #### U RTPCR #### [facility] [address] [place] [address] Dr. Dwight Waters Protein (U) [Mass/Vol] 30 mg/dL Abnormal NEGATIVE/ TRACE [facility] Comment on above: Performed By: #### U RTPCR #### [facility] [address] [place] [address] Dr. Dwight Waters SPEC GRAVITY >=1.030 Abnormal 1.005-<=1.02 5 [facility] Comment on above: Performed By: #### U RTPCR #### [facility] [address] [place] [address] Dr. Dwight Waters UR MICRO IND INDICATED Normal [facility] Comment on above: Performed By: #### U RTPCR #### [facility] [address] [place] [address] Dr. Dwight Waters Urobilinogen Qn (U) 0.2 {Alyssa'U}/dL Normal 0.2 - 1. 0 [facility] Comment on above: Performed By: #### U RTPCR #### [facility] [address] [place] [address] Dr. Dwight Waters PROF 14(COMP METB)on 022 Albumin [Mass/Vol] 3.7 g/dL Normal 3.4-5.0 [facility] Comment on above: Performed By: #### C MP #### [facility] [address] [place] [address] Dr. Dwight Waters Albumin/Globulin [Mass ratio] 0.9 {ratio} Normal [facility] Comment on above: Performed By: #### C MP #### [facility] [address] [place] [address] Dr. Dwight Waters ALP [Catalytic activity/Vol] 80 U/L Normal 46-116 [facility] Comment on above: Performed By: #### C MP #### [facility] [address] [address] [address] Dwight Waters ALT [Catalytic activity/Vol] 24 U/L Normal 16-63 [facility] Comment on above: Performed By: #### C MP #### [facility] [address] [address] [address] Dwight Waters Anion gap [Moles/Vol] 12.9 mmol/L Normal [facility] Comment on above: Performed By: #### C MP #### [facility] [address] [address] [address] Dwight Waters AST [Catalytic activity/Vol] 17 U/L Normal 15-37 [facility] Comment on above: Performed By: #### C MP #### [facility] [address] [place] [address] Dr. Dwight Waters Bilirubin [Mass/Vol] 0.8 mg/dL Normal 0.2-1.0 [facility] Comment on above: Performed By: #### C MP #### [facility] [address] [address] [address] Dwight Waters Calcium [Mass/Vol] 9.4 mg/dL Normal 8.5-10.1 [facility] Comment on above: Performed By: #### C MP #### [facility] [address] [address] [address] Dwight Waters Chloride [Moles/Vol] 106 mmol/L Normal 98-107 [facility] Comment on above: Performed By: #### C MP #### [facility] [address] [address] [address] Dwight Waters CO2 [Moles/Vol] 25.3 mmol/L Normal 21.0-32.0 [facility] Comment on above: Performed By: #### C MP #### [facility] [address] [address] [address] Dwight Waters Creatinine [Mass/Vol] 1.29 mg/dL Normal 0.70-1.30 [facility] Comment on above: Performed By: #### C MP #### [facility] [address] [address] [address] Dwight Waters EGFR-AF CITIZEN OF [place] >60 Normal >=60 [facility] Comment on above: Performed By: #### C MP #### [facility] [address] [address] [address] Dwight Waters EGFR-NON AF CITIZEN OF [place] 59 mL/min/1.73m2 Critically low >=60 [facility] Comment on above: Performed By: #### C MP #### [facility] [address] [address] [address] Dwight Waters Globulin (S) [Mass/Vol] 4.2 g/dL Normal [facility] Comment on above: Performed By: #### C MP #### [facility] [address] [place] [address] Dr. Dwight Waters Glucose [Mass/Vol] 106 mg/dL Normal 74-106 [facility] Comment on above: Performed By: #### C MP #### [facility] [address] [address] [address] Dwight Waters Potassium [Moles/Vol] 4.2 mmol/L Normal 3.5-5.1 [facility] Comment on above: Performed By: #### C MP #### [facility] [address] [place] [address] Dr. Dwight Waters Protein [Mass/Vol] 7.9 g/dL Normal 6.4-8.2 [facility] Comment on above: Performed By: #### C MP #### [facility] [address] [address] [address] Dwight Waters Sodium [Moles/Vol] 140 mmol/L Normal 136-145 [facility] Comment on above: Performed By: #### C MP #### [facility] [address] [address] [address] Dwight Waters Urea nitrogen [Mass/Vol] 22.0 mg/dL Critically high 7.0-18.0 [facility] Comment on above: Performed By: #### C MP #### [facility] [address] [place] [address] Dr. Dwight Waters Urea nitrogen/Creatinine [Mass ratio] 17.1 mg/mg Normal [facility] Comment on above: Performed By: #### C MP #### [facility] [address] [place] [address] Dr. Dwight Waters URINE MICROSCOPIC ONLYon BACTERIA TRACE Abnormal NONE SEEN [facility] Comment on above: Performed By: #### U RTPCR #### [facility] [address] [place] [address] Dr. Dwight Waters Bacteria identified Cx Nom (U) INDICATED Normal [facility] Comment on above: Performed By: #### U RTPCR #### [facility] [address] [place] [address] Dr. Dwight Waters CAST NONE SEEN Normal NONE SEEN [facility] Comment on above: Performed By: #### U RTPCR #### [facility] [address] [place] [address] Dr. Dwight Waters Crystals LM Nom (Urine sed) NONE SEEN Normal NONE SEEN [facility] Comment on above: Performed By: #### U RTPCR #### [facility] [address] [place] [address] Dr. Dwight Waters Epithelial cells LM Ql (Urine sed) NONE SEEN Normal NONE SEEN /RARE [facility] Comment on above: Performed By: #### U RTPCR #### [facility] [address] [place] [address] Dr. Dwight Waters MUCOUS NONE SEEN Normal NONE SEEN [facility] Comment on above: Performed By: #### U RTPCR #### [facility] [address] [place] [address] Dr. Dwight Waters RBC 5-10 Abnormal 0-2 [facility] Comment on above: Performed By: #### U RTPCR #### [facility] [address] [place] [address] Dr. Dwight Waters WBC 10-20 Abnormal NONE SEEN [facility] Comment on above: Performed By: #### U RTPCR #### [facility] [address] [place] [address] Dr. Dwight Waters ALLOSCREEN RECIPIENT (POST T X PRA)on 06-13-2022 AB SPECIFICITY CLASS COMMENT Antibody Specificity testing performed by [employer]. cPRA calculation based on identification of HLA antibody specificities at MFI >2000 and/or presence of CREG antibodies. [facility] Comment on above: Some of the reagents used for testing in the Clinical Histocompatibility Laboratory have yet to be approved by the FDA. Our certification by CLIA to perform high complexity tests allows us to use these reagents in the context of a stringent QC program, and obviates the need for FDA approval.Testing performed by the [facility] Clinical Histocompatibility Laboratory. [facility] number: [id number]. CLIA number: [id number], Director: Carlito Merchant, PhD, D([facility]). ANTIBODY SPECIFICITY INTERPRETATION Detected [facility] CLASS I SPECIFICITIES Not detected [facility] CLASS II SPECIFICITIES Not detected [facility] HLA Ab (S) 0 % 0 [facility] EXTRA MICROon 06-13-2022 [facility] URINE CULTUREOrdered By: Jah Upton on 06-13-2022 Bacteria identified Cx Nom (Unsp spec) Growth [facility] Bacteria identified Cx Nom (Unsp spec) 10,000-50,000 CFU/mL Mixed skin shimon [facility] Comment on above: Multiple bacterial m orphotypes present. Suggest appropriate recollection if clinically indicated. [facility] CBC,PLATELETSon 06-12-2022 Erythrocyte distribution width (RBC) [Ratio] 13.0 % 10.9 - 14.3 % [facility] Hematocrit (Bld) [Volume fraction] 43.2 % 39.6 - 48.8 % [facility] Hemoglobin (Bld) [Mass/Vol] 13.9 g/dL 13.4 - 16.8 g/dL [facility] Interpretation and review of laboratory results Normal [facility] MCH (RBC) [Entitic mass] 28.7 pg 26.1 - 33.3 pg [facility] MCHC (RBC) [Mass/Vol] 32.2 g/dL 31.9 - 36.5 g/dL [facility] MCV (RBC) [Entitic vol] 89.1 fL 79.0 - 94.5 fL [facility] Platelet mean volume (Bld) [Entitic vol] 10.5 fL 8.7 - 12.3 fL [facility] Platelets (Bld) [#/Vol] 269 10*3/uL 146 - 337 K/uL [facility] RBC (Bld) [#/Vol] 4.85 10*6/uL [facility] WBC (Bld) [#/Vol] 7.68 10*3/uL 3.73 - 10. 10 K/uL [facility] CHEM 7 (LYTES,BUN,CREA,GLUC) on 06-12-2022 Anion gap [Moles/Vol] 14 mmol/L 7 - 17 mmol/L [facility] Chloride [Moles/Vol] 106 mmol/L 98 - 10 8 mmol/L [facility] CO2 [Moles/Vol] 25 mmol/L 21 - 31 mmol/L [facility] Creatinine [Mass/Vol] 1.26 mg/dL 0.70 - 1.30 mg/dL [facility] GFR/1.73 sq M.predicted CKD-EPI (S/P/Bld) [Vol rate/Area] 69 >=60 mL/min/1.73m 2 [facility] Comment on above: Reported eGFR is bas ed on the CKD-EPI 2020 equation using creatinine, age, and sex. Glucose [Mass/Vol] 83 mg/dL 70 - 99 mg/dL [facility] Osmolality Calc [O[facility]olality] [facility] Potassium [Moles/Vol] 3.8 mmol/L 3.5 - 5.0 mmol/L [facility] Sodium [Moles/Vol] 141 mmol/L 135 - 145 mmol/L [facility] Urea nitrogen [Mass/Vol] 18 mg/dL 7 - 25 mg/dL [facility] Urea nitrogen/Creatinine [Mass ratio] 14 mg/mg [facility] GGTon 06-12-2022 Gamma glutamyl transferase [Catalytic activity/Vol] 20 U/L 8 - 64 U/L [facility] HEMOGLOBIN [id number] By: [employer] on 06-12-2022 Average glucose Estimated from glycated hemoglobin (Bld) [Mass/Vol] 126 mg/dL [facility] HbA1c (Bld) [Mass fraction] 6.0 % High 4.7 - 5.6 % [facility] Interpretation and review of laboratory results Abnormal [facility] HEPATIC FUNCTION PANELon Albumin [Mass/Vol] 4.3 g/dL 3.5 - 5.0 g/dL [facility] ALP [Catalytic activity/Vol] 78 U/L 32 - 126 U/L [facility] ALT [Catalytic activity/Vol] 12 U/L 10 - 52 U/L [facility] AST [Catalytic activity/Vol] 16 U/L 10 - 39 U/L [facility] Bilirubin [Mass/Vol] 1.0 mg/dL <1.5 [facility] Bilirubin.direct [Mass/Vol] 0.2 mg/dL <0.3 [facility] Protein [Mass/Vol] 7.5 g/dL 6.4 - 8.3 g/dL [facility] No Panel Informationon 06-12 Interpretation and review of laboratory results Normal [facility] PTH INTACTOrdered By: Marli Lizarraga on 06-12-2022 Interpretation and review of laboratory results Abnormal [facility] Parathyrin.intact [Mass/Vol] 79.7 pg/mL High 14.0 - 72.0 pg/mL [facility] URINALYSIS REFLEX TO CULTURE PERFORMABLEon 06-12-2022 Appearance (U) Clear Clear [facility] Bacteria LM Ql (Urine sed) ABSENT ABSENT [facility] Color (U) Yellow Yellow [facility] Epithelial cells.squamous LM Ql (Urine sed) 1/hpf = 1+ 1/hpf = 1+, 2-5/hpf = 2+, 0/hpf = 0+, ABSENT [facility] Glucose Test strip (U) [Mass/Vol] Negative Negative [facility] Interpretation and review of laboratory results Abnormal [facility] Ketones (U) [Mass/Vol] Trace Abnormal Negative [facility] Leukocyte esterase Test strip Ql (U) Small Abnormal Negative [facility] Nitrite Ql (U) Negative Negative [facility] pH (U) 5.5 [pH] 5.0 - 7.0 [facility] Protein (U) [Mass/Vol] 30 mg/dL Abnormal Negative [facility] RBC (U) [#/Vol] Trace Abnormal Negative [facility] RBC LM.HPF (Urine sed) [#/Area] 0-2 0 - 2 /HPF [facility] Specific gravity (U) [Rel density] 1.026 [facility] Urobilinogen (U) [Mass/Vol] 0.2 E.U./dL 0.2 E.U/dL, 1.0 E.U/dL [facility] WBC LM.HPF (Urine sed) [#/Area] 10-20 Abnormal 0 - 5 /HPF [facility] URINE PROTEIN/CREA RATIO, RA NDOMon 06-12-2022 Creatinine (24H U) [Mass/Vol] 231.68 mg/dL [facility] Protein Unsp time (U) [Mass/Vol] 49 mg/dL [facility] Protein/Creatinine (U) [Mass ratio] 0.211 mg/g [facility] FK506 (TACROLIMUS) WHOLE BLO ODon 06-09-2022 Tacrolimus (FK506), Blood 9.8 ng/mL Normal 2.0-20.0 [facility] Comment on above: Result Comment: Trou gh (immediately following transplant) 15.0 . Trough (steady state, 2 weeks or more after transplant): 3.0 - 8.0 . Performed by LC-MS/MS technology. Performed By: #### U RTPCR #### [facility] [address] [place] [address] Dr. Dwight aWters ALBUMINon 06-06-2022 Albumin [Mass/Vol] 3.8 g/dL Normal 3.4-5.0 [facility] Comment on above: Performed By: #### C MP #### [facility] [address] [place] [address] Dr. Dwight Waters ALKALINE PHOSPHAon ALP [Catalytic activity/Vol] 82 U/L Normal 46-116 [facility] Comment on above: Performed By: #### C MP #### [facility] [address] [place] [address] Dr. Dwight Waters BILIRUBIN CONJUGATED (DIRECT )on 06-06-2022 BILI, CONJUGATED 0.2 mg/dL Normal 0.0-0.2 [facility] Comment on above: Performed By: #### C BC #### [facility] [address] [place] [address] Dr. Dwight Waters BILIRUBIN TOTALon 06-06-2022 Bilirubin [Mass/Vol] 1.0 mg/dL Normal 0.2-1.0 [facility] Comment on above: Performed By: #### C BC #### [facility] [address] [place] [address] Dr. Dwight Waters BUNon 06-06-2022 Urea nitrogen [Mass/Vol] 18.0 mg/dL Normal 7.0-18.0 [facility] Comment on above: Performed By: #### C BC #### [facility] [address] [place] [address] Dr. Dwight Waters CALCIUMon 06-06-2022 Calcium [Mass/Vol] 9.4 mg/dL Normal 8.5-10.1 [facility] Comment on above: Performed By: #### C MP #### [facility] [address] [place] [address] Dr. Dwight Waters CBC AUTO DIFFon 06-06-2022 BASO # 0.1 103/ul Normal 0.0-0.1 [facility] Comment on above: Performed By: #### U RTPCR #### [facility] [address] [place] [address] Dr. Dwight Waters Basophils/100 WBC (Bld) 0.8 % Normal 0.2-2.0 [facility] Comment on above: Performed By: #### U RTPCR #### [facility] [address] [place] [address] Dr. Dwight Waters EO # 0.3 103/ul Normal 0.0-0.7 [facility] Comment on above: Performed By: #### U RTPCR #### [facility] [address] [place] [address] Dr. Dwgiht Waters Eosinophils/100 WBC (Bld) 3.3 % Normal 0.9-7.0 [facility] Comment on above: Performed By: #### U RTPCR #### [facility] [address] [place] [address] Dr. Dwight Waters Erythrocyte distribution width (RBC) [Ratio] 12.4 % Normal 11.0-15.0 [facility] Comment on above: Performed By: #### U RTPCR #### [facility] [address] [place] [address] Dr. Dwight Waters Hematocrit (Bld) [Volume fraction] 45.1 % Normal 42.0-54.0 [facility] Comment on above: Performed By: #### U RTPCR #### [facility] Laboratory [address] [place] [address] Dr. Dwight Waters Hemoglobin (Bld) [Mass/Vol] 14.4 g/dL Normal 14.0-18.0 [facility] Comment on above: Performed By: #### U RTPCR #### [facility] Laboratory [address] [place] [address] Dr. Dwight Waters IG # 0.01 10e3/ul Normal 0.00-0.03 [facility] Comment on above: Performed By: #### U RTPCR #### [facility] Laboratory [address] [place] [address] Dr. Dwight Waters IG % 0.1 % Normal 0.0-0.5 [facility] Comment on above: Performed By: #### U RTPCR #### [facility] Laboratory [address] [place] [address] Dr. Dwight Waters LYMPH # 2.2 103/ul Normal 1.2-3.8 [facility] Comment on above: Performed By: #### U RTPCR #### [facility] Laboratory [address] [place] [address] Dr. Dwight Waters Lymphocytes/100 WBC (Bld) 30.0 % Normal 20.5-60.0 [facility] Comment on above: Performed By: #### U RTPCR #### [facility] Laboratory [address] [place] [address] Dr. Dwight Waters MANUAL DIFF REQ NO Normal [facility] Comment on above: Performed By: #### U RTPCR #### [facility] Laboratory [address] [place] [address] Dr. Dwight Waters MCH (RBC) [Entitic mass] 28.2 pg Normal 25.9-34.0 [facility] Comment on above: Performed By: #### U RTPCR #### [facility] Laboratory [address] [place] [address] Dr. Dwight Waters MCHC (RBC) [Mass/Vol] 31.9 g/dL Normal 29.9-35.2 [facility] Comment on above: Performed By: #### U RTPCR #### [facility] Laboratory [address] [place] [address] Dr. Dwight Waters MCV (RBC) [Entitic vol] 88.3 fL Normal 80.0-94.0 [facility] Comment on above: Performed By: #### U RTPCR #### [facility] Laboratory [address] [place] [address] Dr. Dwight Waters MONO # 0.6 103/ul Normal 0.3-0.8 [facility] Comment on above: Performed By: #### U RTPCR #### [facility] Laboratory [address] [place] [address] Dr. Dwight Waters Monocytes/100 WBC (Bld) 8.2 % Normal 1.7-12.0 [facility] Comment on above: Performed By: #### U RTPCR #### [facility] Laboratory [address] [place] [address] Dr. Dwight Waters NEUT # 4.3 103/ul Normal 1.4-6.5 [facility] Comment on above: Performed By: #### U RTPCR #### [facility] Laboratory [address] [place] [address] Dr. Dwight Waters Neutrophils/100 WBC (Bld) 57.6 % Normal 43.0-75.0 [facility] Comment on above: Performed By: #### U RTPCR #### [facility] Laboratory [address] [place] [address] Dr. Dwight Waters Platelet mean volume (Bld) [Entitic vol] 9.7 fL Normal 9.5-13.5 [facility] Comment on above: Performed By: #### U RTPCR #### [facility] Laboratory [address] [place] [address] Dr. Dwight Waters PLT 297 103/ul Normal 150-450 [facility] Comment on above: Performed By: #### U RTPCR #### [facility] Laboratory [address] [place] [address] Dr. Dwight Waters RBC 5.11 106/ul Normal 4.70-6.10 [facility] Comment on above: Performed By: #### U RTPCR #### [facility] Laboratory [address] [place] [address] Dr. Dwight Waters WBC 7.5 103/ul Normal 4.0-11.0 [facility] Comment on above: Performed By: #### U RTPCR #### [facility] Laboratory [address] [place] [address] Dr. Dwight Waters CHLORIDEon 06-06-2022 Chloride [Moles/Vol] 107 mmol/L Normal 98-107 [facility] Comment on above: Performed By: #### C BC #### [facility] Laboratory [address] [place] [address] Dr. Dwight Waters CO2on 06-06-2022 CO2 [Moles/Vol] 27.4 mmol/L Normal 21.0-32.0 [facility] Comment on above: Performed By: #### C BC #### [facility] Laboratory [address] [place], [place] [id number] Dr. Dwight Waters CREATININEon 06-06-2022 Creatinine [Mass/Vol] 1.20 mg/dL Normal 0.70-1.30 [facility] Comment on above: Performed By: #### C BC #### [facility] Laboratory [address] [place] [address] Dr. Dwight Waters EGFR-AF CITIZEN OF [place] >60 Normal >=60 [facility] Comment on above: Performed By: #### C BC #### [facility] Laboratory [address] [place] [address] Dr. Dwight Waters EGFR-NON AF CITIZEN OF [place] >60 Normal >=60 [facility] Comment on above: Performed By: #### C BC #### [facility] Laboratory [address] [place] [address] Dr. Dwight Waters GGTon 06-06-2022 Gamma glutamyl transferase [Catalytic activity/Vol] 29 U/L Normal 15-85 [facility] Comment on above: Performed By: #### C BC #### [facility] Laboratory [address] [place] [address] Dr. Dwight Waters GLUCOSE BLOODon 06-06-2022 Glucose [Mass/Vol] 112 mg/dL Critically high 74-106 [facility] Comment on above: Performed By: #### C BC #### [facility] Laboratory [address] [place] [address] Dr. Dwight Waters MAGNESIUMon 06-06-2022 Magnesium [Mass/Vol] 1.3 mg/dL Critically low 1.8-2.4 [facility] Comment on above: Performed By: #### C MP #### [facility] Laboratory [address] [place] [address] Dr. Dwight Waters NAon 06-06-2022 Sodium [Moles/Vol] 141 mmol/L Normal 136-145 [facility] Comment on above: Performed By: #### C MP #### [facility] Laboratory [address] [place] [address] Dr. Dwight Waters PHOSPHORUSon 06-06-2022 Phosphate [Mass/Vol] 3.1 mg/dL Normal 2.6-4.7 [facility] Comment on above: Performed By: #### C MP #### [facility] Laboratory [address] [address] [address] Dwight Waters POTASSIUMon 06-06-2022 Potassium [Moles/Vol] 4.3 mmol/L Normal 3.5-5.1 [facility] Comment on above: Performed By: #### C BC #### [facility] Laboratory [address] [place] [address] Dr. Dwight Waters SGOTon 06-06-2022 AST [Catalytic activity/Vol] 16 U/L Normal 15-37 [facility] Comment on above: Performed By: #### C BC #### [facility] Laboratory [address] [place] [address] Dr. Dwight Waters SGPTon 06-06-2022 ALT [Catalytic activity/Vol] 50 U/L Normal 16-63 [facility] Comment on above: Performed By: #### C BC #### [facility] Laboratory [address] [place] [address] Dr. Dwight Waters Bacteria identified Cx Nom ( Bld)on 05-21-2022 Bacteria identified Cx Nom (Unsp spec) NO GROWTH DAY 5 OF 5 [facility] Results may be compr omised due to volume of BACT\ALERT bottle exceeding 10mLs . The optimal blood volume is 8-10 mls per aerobic/anaerobic blood culture bottle. [facility] CALCIUMon 05-20-2022 Calcium [Mass/Vol] 9.1 mg/dL 8.6 - 10. 5 mg/dL [facility] CBC,PLATELETSon 05-20-2022 Erythrocyte distribution width (RBC) [Ratio] 12.5 % 10.9 - 14.3 % [facility] Hematocrit (Bld) [Volume fraction] 37.1 % Low 39.6 - 48.8 % [facility] Hemoglobin (Bld) [Mass/Vol] 12.3 g/dL Low 13.4 - 16.8 g/dL [facility] Interpretation and review of laboratory results Abnormal [facility] MCH (RBC) [Entitic mass] 28.9 pg 26.1 - 33.3 pg [facility] MCHC (RBC) [Mass/Vol] 33.2 g/dL 31.9 - 36.5 g/dL [facility] MCV (RBC) [Entitic vol] 87.3 fL 79.0 - 94.5 fL [facility] Platelet mean volume (Bld) [Entitic vol] 9.9 fL 8.7 - 12.3 fL [facility] Platelets (Bld) [#/Vol] 234 10*3/uL 146 - 337 K/uL [facility] RBC (Bld) [#/Vol] 4.25 10*6/uL Low [facility] WBC (Bld) [#/Vol] 6.31 10*3/uL 3.73 - 10. 10 K/uL [facility] CHEM 7 (LYTES,BUN,CREA,GLUC) on 05-20-2022 Anion gap [Moles/Vol] 15 mmol/L 7 - 17 mmol/L [facility] Chloride [Moles/Vol] 111 mmol/L High 98 - 10 8 mmol/L [facility] CO2 [Moles/Vol] 22 mmol/L 21 - 31 mmol/L [facility] Creatinine [Mass/Vol] 1.10 mg/dL 0.70 - 1.30 mg/dL [facility] GFR/1.73 sq M.predicted CKD-EPI (S/P/Bld) [Vol rate/Area] 81 >=60 mL/min/1.73m 2 [facility] Comment on above: Reported eGFR is bas ed on the CKD-EPI 2020 equation using creatinine, age, and sex. Glucose [Mass/Vol] 92 mg/dL 70 - 99 mg/dL [facility] Interpretation and review of laboratory results Abnormal [facility] Osmolality Calc [Osmolality] 302 [facility] Potassium [Moles/Vol] 4.4 mmol/L 3.5 - 5.0 mmol/L [facility] Sodium [Moles/Vol] 144 mmol/L 135 - 145 mmol/L [facility] Urea nitrogen [Mass/Vol] 18 mg/dL 7 - 25 mg/dL [facility] Urea nitrogen/Creatinine [Mass ratio] 16 [facility]-20-2022 Interpretation and review of laboratory results Abnormal [facility] Magnesium [Mass/Vol] 1.5 mg/dL Low 1.6 - 2 .6 mg/dL [facility] No Panel Informationon 05-20 Interpretation and review of laboratory results Normal [facility] PHOSPHATE, INORGANICon 05-20 Phosphate [Mass/Vol] 3.3 mg/dL 2.2 - 4 .6 mg/dL [facility] RF Unspecified body region V iews during [...] projections of kidneys, ureters, and bladder. FINDINGS: [employer] images: [employer] radiographs of the abdomen reveal a nonobstructive [...] Contrast refluxes up the ureter to the [place] right kidney that is grossly normal appearing. [...] projections of kidneys, ureters, and bladder. FINDINGS: [employer] images: [employer] radiographs of the abdomen reveal a nonobstructive [...] Contrast refluxes up the ureter to the [place] right kidney that is grossly normal appearing. [...] I have reviewed and approved this report. [facility] Radiology Study observation (narrative) [facility] RF Unspecified body region V iews during surgeryOrdered By: Lizz Campos on 05-20-2022 [facility] Work Phone: CALCIUMon 05-19-2022 Calcium [Mass/Vol] 9.2 mg/dL 8.6 - 10. 5 mg/dL [facility] Calcium [Mass/Vol] 8.6 mg/dL 8.6 - 10. 5 mg/dL [facility] CBC,PLATELETSon 05-19-2022 Erythrocyte distribution width (RBC) [Ratio] 12.4 % 10.9 - 14.3 % [facility] Hematocrit (Bld) [Volume fraction] 38.0 % Low 39.6 - 48.8 % [facility] Hemoglobin (Bld) [Mass/Vol] 12.0 g/dL Low 13.4 - 16.8 g/dL [facility] Interpretation and review of laboratory results Abnormal [facility] MCH (RBC) [Entitic mass] 28.6 pg 26.1 - 33.3 pg [facility] MCHC (RBC) [Mass/Vol] 31.6 g/dL Low 31.9 - 36.5 g/dL [facility] MCV (RBC) [Entitic vol] 90.5 fL 79.0 - 94.5 fL [facility] Platelet mean volume (Bld) [Entitic vol] 9.7 fL 8.7 - 12.3 fL [facility] Platelets (Bld) [#/Vol] 199 10*3/uL 146 - 337 K/uL [facility] RBC (Bld) [#/Vol] 4.20 10*6/uL Low [facility] WBC (Bld) [#/Vol] 6.81 10*3/uL 3.73 - 10. 10 K/uL [facility] CHEM 7 (LYTES,BUN,CREA,GLUC) on 05-19-2022 Anion gap [Moles/Vol] 13 mmol/L 7 - 17 mmol/L [facility] Chloride [Moles/Vol] 105 mmol/L 98 - 10 8 mmol/L [facility] CO2 [Moles/Vol] 30 mmol/L 21 - 31 mmol/L [facility] Creatinine [Mass/Vol] 1.39 mg/dL High 0.70 - 1.30 mg/dL [facility] GFR/1.73 sq M.predicted CKD-EPI (S/P/Bld) [Vol rate/Area] 61 >=60 mL/min/1.73m 2 [facility] Comment on above: Reported eGFR is bas ed on the CKD-EPI 2020 equation using creatinine, age, and sex. Glucose [Mass/Vol] 121 mg/dL High 70 - 99 mg/dL [facility] Interpretation and review of laboratory results Abnormal [facility] Osmolality Calc [Osmolality] 303 [facility] Potassium [Moles/Vol] 3.8 mmol/L 3.5 - 5.0 mmol/L [facility] Sodium [Moles/Vol] 144 mmol/L 135 - 145 mmol/L [facility] Urea nitrogen [Mass/Vol] 18 mg/dL 7 - 25 mg/dL [facility] Urea nitrogen/Creatinine [Mass ratio] 13 mg/mg [facility] Anion gap [Moles/Vol] 15 mmol/L 7 - 17 mmol/L [facility] Chloride [Moles/Vol] 106 mmol/L 98 - 10 8 mmol/L [facility] CO2 [Moles/Vol] 24 mmol/L 21 - 31 mmol/L [facility] Creatinine [Mass/Vol] 1.46 mg/dL High 0.70 - 1.30 mg/dL [facility] GFR/1.73 sq M.predicted CKD-EPI (S/P/Bld) [Vol rate/Area] 58 Low >=60 mL/min/1.73m 2 [facility] Comment on above: Reported eGFR is bas ed on the CKD-EPI 202 equation using creatinine, age, and sex. Glucose [Mass/Vol] 103 mg/dL High 70 - 99 mg/dL [facility] Interpretation and review of laboratory results Abnormal [facility] Osmolality Calc [Osmolality] 298 [facility] Potassium [Moles/Vol] 3.9 mmol/L 3.5 - 5.0 mmol/L [facility] Sodium [Moles/Vol] 141 mmol/L 135 - 145 mmol/L [facility] Urea nitrogen [Mass/Vol] 21 mg/dL 7 - 25 mg/dL [facility] Urea nitrogen/Creatinine [Mass ratio] 14 mg/mg [facility] MAGNESIUMon 05-19-2022 Magnesium [Mass/Vol] 2.0 mg/dL 1.6 - 2 .6 mg/dL [facility] Magnesium [Mass/Vol] 1.7 mg/dL 1.6 - 2 .6 mg/dL [facility] No Panel Informationon 05-19 Interpretation and review of laboratory results Normal [facility] Interpretation and review of laboratory results Normal [facility] PHOSPHATE, INORGANICon 05-19 Phosphate [Mass/Vol] 3.0 mg/dL 2.2 - 4 .6 mg/dL [facility] Phosphate [Mass/Vol] 2.7 mg/dL 2.2 - 4 .6 mg/dL [facility] CALCIUMon 05-18-2022 Calcium [Mass/Vol] 9.1 mg/dL 8.6 - 10. 5 mg/dL [facility] CBC,PLATELETSon 05-18-2022 Erythrocyte distribution width (RBC) [Ratio] 12.5 % 10.9 - 14.3 % [facility] Hematocrit (Bld) [Volume fraction] 37.3 % Low 39.6 - 48.8 % [facility] Hemoglobin (Bld) [Mass/Vol] 11.9 g/dL Low 13.4 - 16.8 g/dL [facility] Interpretation and review of laboratory results Abnormal [facility] MCH (RBC) [Entitic mass] 28.9 pg 26.1 - 33.3 pg [facility] MCHC (RBC) [Mass/Vol] 31.9 g/dL 31.9 - 36.5 g/dL [facility] MCV (RBC) [Entitic vol] 90.5 fL 79.0 - 94.5 fL [facility] Platelet mean volume (Bld) [Entitic vol] 10.1 fL 8.7 - 12.3 fL [facility] Platelets (Bld) [#/Vol] 189 10*3/uL 146 - 337 K/uL [facility] RBC (Bld) [#/Vol] 4.12 10*6/uL Low [facility] WBC (Bld) [#/Vol] 10.19 10*3/uL High 3.73 - 10 .10 K/uL [facility] CHEM 7 (LYTES,BUN,CREA,GLUC) on 05-18-2022 Anion gap [Moles/Vol] 13 mmol/L 7 - 17 mmol/L [facility] Chloride [Moles/Vol] 102 mmol/L 98 - 10 8 mmol/L [facility] CO2 [Moles/Vol] 26 mmol/L 21 - 31 mmol/L [facility] Creatinine [Mass/Vol] 1.91 mg/dL High 0.70 - 1.30 mg/dL [facility] GFR/1.73 sq M.predicted CKD-EPI (S/P/Bld) [Vol rate/Area] 42 Low >=60 mL/min/1.73m 2 [facility] Comment on above: Reported eGFR is bas ed on the CKD-EPI 2020 equation using creatinine, age, and sex. Glucose [Mass/Vol] 158 mg/dL High 70 - 99 mg/dL [facility] Osmolality Calc [Osmolality] 297 [facility] Potassium [Moles/Vol] 4.0 mmol/L 3.5 - 5.0 mmol/L [facility] Sodium [Moles/Vol] 137 mmol/L 135 - 145 mmol/L [facility] Urea nitrogen [Mass/Vol] 30 mg/dL High 7 - 25 mg/dL [facility] Urea nitrogen/Creatinine [Mass ratio] 16 mg/mg [facility] CHEM 7 (LYTES,BUN,CREA,GLUC) Ordered By: Tamiko Thapa on 05-18-2022 Anion gap [Moles/Vol] 13 mmol/L 7 - 17 mmol/L [facility] Chloride [Moles/Vol] 104 mmol/L 98 - 10 8 mmol/L [facility] CO2 [Moles/Vol] 26 mmol/L 21 - 31 mmol/L [facility] Creatinine [Mass/Vol] 2.96 mg/dL High 0.70 - 1.30 mg/dL [facility] GFR/1.73 sq M.predicted CKD-EPI (S/P/Bld) [Vol rate/Area] 25 Low >=60 mL/min/1.73m 2 [facility] Comment on above: Reported eGFR is bas ed on the CKD-EPI 2020 equation using creatinine, age, and sex. Glucose [Mass/Vol] 136 mg/dL High 70 - 99 mg/dL [facility] Interpretation and review of laboratory results Abnormal [facility] Osmolality Calc [Osmolality] 304 [facility] Potassium [Moles/Vol] 4.2 mmol/L 3.5 - 5.0 mmol/L [facility] Sodium [Moles/Vol] 139 mmol/L 135 - 145 mmol/L [facility] Urea nitrogen [Mass/Vol] 41 mg/dL High 7 - 25 mg/dL [facility] Urea nitrogen/Creatinine [Mass ratio] 14 mg/mg [facility] MAGNESIUMon 05-18-2022 Magnesium [Mass/Vol] 2.2 mg/dL 1.6 - 2 .6 mg/dL [facility] Interpretation and review of laboratory results Normal [facility] Magnesium [Mass/Vol] 1.7 mg/dL 1.6 - 2 .6 mg/dL [facility] No Panel Informationon 05-18 Interpretation and review of laboratory results Abnormal [facility] Interpretation and review of laboratory results Normal [facility] PHOSPHATE, INORGANICon 05-18 Phosphate [Mass/Vol] 2.0 mg/dL Low 2.2 - 4 .6 mg/dL [facility] Interpretation and review of laboratory results Normal [facility] Phosphate [Mass/Vol] 2.8 mg/dL 2.2 - 4 .6 mg/dL [facility] PT,INR,PTTon 05-18-2022 aPTT Coag (PPP) [Time] 31.0 s [facility] INR Coag (Bld) [Relative time] 1.1 {INR} [facility] Interpretation and review of laboratory results Abnormal [facility] PT Coag (PPP) [Time] 14.4 s High [facility] URINE CULTUREOrdered By: Sylvia Campos on 05-18-2022 Bacteria identified Cx Nom (Unsp spec) No Growth [facility] CBC,PLATELETSon 05-17-2022 Erythrocyte distribution width (RBC) [Ratio] 12.8 % 10.9 - 14.3 % [facility] Hematocrit (Bld) [Volume fraction] 42.8 % 39.6 - 48.8 % [facility] Hemoglobin (Bld) [Mass/Vol] 13.3 g/dL Low 13.4 - 16.8 g/dL [facility] Interpretation and review of laboratory results Abnormal [facility] MCH (RBC) [Entitic mass] 28.9 pg 26.1 - 33.3 pg [facility] MCHC (RBC) [Mass/Vol] 31.1 g/dL Low 31.9 - 36.5 g/dL [facility] MCV (RBC) [Entitic vol] 92.8 fL 79.0 - 94.5 fL [facility] Platelet mean volume (Bld) [Entitic vol] 10.3 fL 8.7 - 12.3 fL [facility] Platelets (Bld) [#/Vol] 188 10*3/uL 146 - 337 K/uL [facility] RBC (Bld) [#/Vol] 4.61 10*6/[facility]L [facility] WBC (Bld) [#/Vol] 16.61 10*3/uL High 3.73 - 10 .10 K/uL [facility] CHEM 7 (LYTES,BUN,CREA,GLUC) Ordered By: Kaylah Mc on 05-17-2022 Anion gap [Moles/Vol] 15 mmol/L 7 - 17 mmol/L [facility] Chloride [Moles/Vol] 103 mmol/L 98 - 10 8 mmol/L [facility] CO2 [Moles/Vol] 23 mmol/L 21 - 31 mmol/L [facility] Creatinine [Mass/Vol] 5.95 mg/dL High 0.70 - 1.30 mg/dL [facility] GFR/1.73 sq M.predicted CKD-EPI (S/P/Bld) [Vol rate/Area] 11 Low >=60 mL/min/1.73m 2 [facility] Comment on above: Reported eGFR is bas ed on the CKD-EPI 2020 equation using creatinine, age, and sex. Glucose [Mass/Vol] 165 mg/dL High 70 - 99 mg/dL [facility] Interpretation and review of laboratory results Abnormal [facility] Osmolality Calc [Osmolality] 305 [facility] Potassium [Moles/Vol] 4.6 mmol/L 3.5 - 5.0 mmol/L [facility] Sodium [Moles/Vol] 136 mmol/L 135 - 145 mmol/L [facility] Urea nitrogen [Mass/Vol] 52 mg/dL High 7 - 25 mg/dL [facility] Urea nitrogen/Creatinine [Mass ratio] 9 mg/mg [facility] CHEM 7 (LYTES,BUN,CREA,GLUC) Ordered By: Kehinde Gutierrez on 05-17-2022 Anion gap [Moles/Vol] 24 mmol/L High 7 - 17 mmol/L [facility] Chloride [Moles/Vol] 100 mmol/L 98 - 10 8 mmol/L [facility] CO2 [Moles/Vol] 16 mmol/L Low 21 - 31 mmol/L [facility] Creatinine [Mass/Vol] 8.08 mg/dL High 0.70 - 1.30 mg/dL [facility] GFR/1.73 sq M.predicted CKD-EPI (S/P/Bld) [Vol rate/Area] 7 Low >=60 mL/min/1.73m 2 [facility] Comment on above: Reported eGFR is bas ed on the CKD-EPI 2020 equation using creatinine, age, and sex. Glucose [Mass/Vol] 164 mg/dL High 70 - 99 mg/dL [facility] Interpretation and review of laboratory results Abnormal [facility] Osmolality Calc [Osmolality] 305 [facility] Potassium [Moles/Vol] 5.0 mmol/L 3.5 - 5.0 mmol/L [facility] Sodium [Moles/Vol] 135 mmol/L 135 - 145 mmol/L [facility] Urea nitrogen [Mass/Vol] 56 mg/dL High 7 - 25 mg/dL [facility] Urea nitrogen/Creatinine [Mass ratio] 7 mg/mg [facility] LAVENDER TOP TUBEon 05-17-20 [facility] MAGNESIUMon 05-17-2022 Interpretation and review of laboratory results Normal [facility] Magnesium [Mass/Vol] 1.8 mg/dL 1.6 - 2 .6 mg/dL [facility] Interpretation and review of laboratory results Normal [facility] Magnesium [Mass/Vol] 1.6 mg/dL 1.6 - 2 .6 mg/dL [facility] No Panel Informationon 05-17 [facility] PHOSPHATE, INORGANICon 05-17 Interpretation and review of laboratory results Abnormal [facility] Phosphate [Mass/Vol] 4.9 mg/dL High 2.2 - 4 .6 mg/dL [facility] PT,INR,PTTon 05-17-2022 aPTT Coag (PPP) [Time] 33.0 s [facility] INR Coag (Bld) [Relative time] 1.3 {INR} High [facility] Interpretation and review of laboratory results Abnormal [facility] PT Coag (PPP) [Time] 15.7 s High [facility] Portable XR Chest Viewson IMPRESSION: No acute [...] Stable cardiomegaly. IMPRESSION IMPRESSION: No acute findings. [facility] Radiology Study observation (narrative) [facility] Portable XR Chest ViewsOrder ed By: Raheem Sanz on 05-17-2022 [facility] Work Phone: URINALYSISOrdered By: Michael patel Ma on 05-17-2022 Appearance (U) Cloudy Abnormal Clear [facility] Comment on above: Results may be inacc urate due to color interference. Clinical correlation recommended. Bacteria LM Ql (Urine sed) ABSENT ABSENT [facility] Color (U) Red Abnormal Yellow [facility] Comment on above: Results may be inacc urate due to color interference. Clinical correlation recommended. Epithelial cells.squamous LM Ql (Urine sed) ABSENT 1/hpf = 1+, 2-5/hpf = 2+, 0/hpf = 0+, ABSENT [facility] Glucose Test strip (U) [Mass/Vol] Negative Negative [facility] Comment on above: Results may be inacc urate due to color interference. Clinical correlation recommended. Interpretation and review of laboratory results Abnormal [facility] Ketones (U) [Mass/Vol] Trace Abnormal Negative [facility] Comment on above: Results may be inacc urate due to color interference. Clinical correlation recommended. Leukocyte esterase Test strip Ql (U) Large Abnormal Negative [facility] Comment on above: Results may be inacc urate due to color interference. Clinical correlation recommended. Nitrite Ql (U) Negative Negative [facility] Comment on above: Results may be inacc urate due to color interference. Clinical correlation recommended. pH (U) 5.0 [pH] 5.0 - 7.0 [facility] Comment on above: Results may be inacc urate due to color interference. Clinical correlation recommended. Protein (U) [Mass/Vol] mg/dL Abnormal Negative [facility] Comment on above: Results may be inacc urate due to color interference. Clinical correlation recommended. RBC (U) [#/Vol] Large Abnormal Negative [facility] Comment on above: Results may be inacc urate due to color interference. Clinical correlation recommended. RBC LM.HPF (Urine sed) [#/Area] /[HPF] Abnormal 0 - 2 /HPF [facility] Specific gravity (U) [Rel density] 1.016 [facility] Comment on above: Results may be inacc urate due to color interference. Clinical correlation recommended. Urobilinogen (U) [Mass/Vol] 0.2 E.U./dL 0.2 E.U/dL, 1.0 E.U/dL [facility] Comment on above: Results may be inacc urate due to color interference. Clinical correlation recommended. WBC LM.HPF (Urine sed) [#/Area] /[HPF] Abnormal 0 - 5 /HPF [facility] URINE CULTUREOrdered By: Tyler Tiwari on 05-17-2022 Bacteria identified Cx Nom (Unsp spec) No Growth [facility] CBC,PLATELETSon 05-16-2022 Erythrocyte distribution width (RBC) [Ratio] 12.9 % 10.9 - 14.3 % [facility] Hematocrit (Bld) [Volume fraction] 46.5 % 39.6 - 48.8 % [facility] Hemoglobin (Bld) [Mass/Vol] 14.7 g/dL 13.4 - 16.8 g/dL [facility] Interpretation and review of laboratory results Abnormal [facility] MCH (RBC) [Entitic mass] 28.3 pg 26.1 - 33.3 pg [facility] MCHC (RBC) [Mass/Vol] 31.6 g/dL Low 31.9 - 36.5 g/dL [facility] MCV (RBC) [Entitic vol] 89.6 fL 79.0 - 94.5 fL [facility] Platelet mean volume (Bld) [Entitic vol] 10.3 fL 8.7 - 12.3 fL [facility] Platelets (Bld) [#/Vol] 188 10*3/uL 146 - 337 K/uL [facility] RBC (Bld) [#/Vol] 5.19 10*6/uL [facility] WBC (Bld) [#/Vol] 12.55 10*3/uL High 3.73 - 10 .10 K/uL [facility] CHEM 7 (LYTES,BUN,CREA,GLUC) Ordered By: Alma Pena on 05-16-2022 Anion gap [Moles/Vol] 14 mmol/L 7 - 17 mmol/L [facility] Chloride [Moles/Vol] 103 mmol/L 98 - 10 8 mmol/L [facility] CO2 [Moles/Vol] 22 mmol/L 21 - 31 mmol/L [facility] Creatinine [Mass/Vol] 6.09 mg/dL High 0.70 - 1.30 mg/dL [facility] GFR/1.73 sq M.predicted CKD-EPI (S/P/Bld) [Vol rate/Area] 10 Low >=60 mL/min/1.73m 2 [facility] Comment on above: Reported eGFR is bas ed on the CKD-EPI 2020 equation using creatinine, age, and sex. Glucose [Mass/Vol] 134 mg/dL High 70 - 99 mg/dL [facility] Interpretation and review of laboratory results Abnormal [facility] Osmolality Calc [Osmolality] 298 [facility] Potassium [Moles/Vol] 4.9 mmol/L 3.5 - 5.0 mmol/L [facility] Sodium [Moles/Vol] 134 mmol/L Low 135 - 145 mmol/L [facility] Comment on above: Results inconsistent with previous results Urea nitrogen [Mass/Vol] 49 mg/dL High 7 - 25 mg/dL [facility] Urea nitrogen/Creatinine [Mass ratio] 8 mg/mg [facility] CHEM 7 (LYTES,BUN,CREA,GLUC) on 05-16-2022 Anion gap [Moles/Vol] 17 mmol/L 7 - 17 mmol/L [facility] Chloride [Moles/Vol] 106 mmol/L 98 - 10 8 mmol/L [facility] CO2 [Moles/Vol] 22 mmol/L 21 - 31 mmol/L [facility] Creatinine [Mass/Vol] 5.23 mg/dL High 0.70 - 1.30 mg/dL [facility] GFR/1.73 sq M.predicted CKD-EPI (S/P/Bld) [Vol rate/Area] 13 Low >=60 mL/min/1.73m 2 [facility] Comment on above: Reported eGFR is bas ed on the CKD-EPI 2020 equation using creatinine, age, and sex. Glucose [Mass/Vol] 116 mg/dL High 70 - 99 mg/dL [facility] Interpretation and review of laboratory results Abnormal [facility] Osmolality Calc [Osmolality] 305 [facility] Potassium [Moles/Vol] 4.6 mmol/L 3.5 - 5.0 mmol/L [facility] Sodium [Moles/Vol] 140 mmol/L 135 - 145 mmol/L [facility] Urea nitrogen [Mass/Vol] 42 mg/dL High 7 - 25 mg/dL [facility] Urea nitrogen/Creatinine [Mass ratio] 8 mg/mg [facility] EXTRA MICROon 05-16-2022 [facility] LT BLUE TOP TUBEon [facility] LYTES (NA, K, CL) - URINE - RANDOMon 05-16-2022 Chloride (24H U) [Moles/Vol] 68 mmol/L [facility] Potassium (24H U) [Moles/Vol] 36.7 mmol/L [facility] Sodium (24H U) [Moles/Vol] 55 mmol/L [facility] The reference range has not been established for random urine specimens. The test result should be integrated into the clinical context for interpretation. [facility] MAGNESIUMon 05-16-2022 Interpretation and review of laboratory results Normal [facility] Magnesium [Mass/Vol] 1.7 mg/dL 1.6 - 2 .6 mg/dL [facility] NOVEL CORONAVIRUS PCROrdered By: Edson Candelario on 05-16-2022 SARS-CoV-2 (COVID-19) RNA ESTELITA+probe Ql (Unsp spec) Not detected NOT DETECTED [facility] Comment on above: [facility] Negative results [...] ill or clinically deteriorating. SARS-CoV-2 (COVID-19) RNA ETSELITA+probe Ql (Unsp spec) This test was performed using real time PCR and has been approved for the qualitative detection of SARS-CoV-2 nucleic acid. The test has been authorized by the FDA under an emergency use authorization for use by authorized laboratories. [facility] No Panel Informationon 05-16 [facility] OSMOLALITY, URINEon 05-16-20 Interpretation and review of laboratory results Normal [facility] Osmolality (U) [Osmolality] 320 mosm/kg [facility] The reference range has not been established for random urine specimens. The test result should be integrated into the clinical context for interpretation. [facility] PROCALCITONINon 05-16-2022 Interpretation and review of laboratory results Normal [facility] Procalcitonin [Mass/Vol] 0.18 ng/mL <0.50 [facility] Comment on above: Procalcitonin is [...] and trend procalcitonin in various clinical settings. [email or web address] Two common cutoffs associated with bacterial infections are as follows. Respiratory tract infections: >0.25 ng/mL Sepsis/septic shock: >0.5 ng/mL Procalcitonin should not be used alone as a diagnostic tool, however. All procalcitonin results should be interpreted in association with the patients clinical condition and all laboratory findings. [facility] PT,INR,PTTon 05-16-2022 aPTT Coag (PPP) [Time] 30.3 s [facility] INR Coag (Bld) [Relative time] 1.1 {INR} [facility] Interpretation and review of laboratory results Normal [facility] PT Coag (PPP) [Time] 14.[address] [facility] SARS-CoV-2 (COVID-19) RNA NA A+probe Ql (Unsp spec)Ordered By: Edson Candelario on 05-16-2022 Interpretation and review of laboratory results Normal [facility] TACROLIMUS LEVEL, TROUGH (NE E DRUG LEVEL)Ordered By: Mariama Nick on 05-16-2022 Interpretation and review of laboratory results Normal [facility] Tacrolimus (Bld) [Mass/Vol] 4.1 ng/mL Bone Marrow Transplant: 4.0-12.0, Therapeutic: 5.0-15.0 [facility] Method performed is a chemiluminescent microparticle immunoasssay on the [employer] i2000. The range is based on experience at [facility] and users should be aware that target concentrations vary widely depending on concomitant therapy, time post-transplant, and desired degree of immunosuppression. [facility] URINE PROTEIN/CREA RATIO, RA Baljit 05-16-2022 Creatinine (24H U) [Mass/Vol] 59.82 mg/dL [facility] Protein Unsp time (U) [Mass/Vol] 111 mg/dL [facility] Protein/Creatinine (U) [Mass ratio] 1.856 mg/g [facility] US for transplanted kidney l [...] appearing vascular flow in the transplant kidney. [facility] Radiology Study observation (narrative) [facility] US for transplanted kidney l imitedOrdered By: Rosendo Matute on 05-16-2022 [facility] Work Phone: CBC AND ELECTRONIC DIFFon Basophils (Bld) [#/Vol] 10*3/uL 0.00 - 0.09 K/uL [facility] Basophils/100 WBC (Bld) 0.2 % [facility] Differential cell count method Nom (Bld) Electronic Differential [facility] Eosinophils (Bld) [#/Vol] 10*3/uL 0.00 - 0.48 K/uL [facility] Eosinophils/100 WBC (Bld) 0.0 % [facility] Erythrocyte distribution width (RBC) [Ratio] 12.8 % 10.9 - 14.3 % [facility] Hematocrit (Bld) [Volume fraction] 46.0 % 39.6 - 48.8 % [facility] Hemoglobin (Bld) [Mass/Vol] 14.6 g/dL 13.4 - 16.8 g/dL [facility] Immature granulocytes (Bld) [#/Vol] 0.07 10*3/uL <=0.08 [facility] Immature granulocytes/100 WBC (Bld) 0.4 % [facility] Interpretation and review of laboratory results Abnormal [facility] Lymphocytes (Bld) [#/Vol] 1.49 10*3/uL 0.83 - 3.57 K/uL [facility] Lymphocytes/100 WBC (Bld) 9.4 % [facility] MCH (RBC) [Entitic mass] 28.2 pg 26.1 - 33.3 pg [facility] MCHC (RBC) [Mass/Vol] 31.7 g/dL Low 31.9 - 36.5 g/dL [facility] MCV (RBC) [Entitic vol] 89.0 fL 79.0 - 94.5 fL [facility] Monocytes (Bld) [#/Vol] 1.45 10*3/uL High 0.24 - 0.93 K/uL [facility] Monocytes/100 WBC (Bld) 9.2 % [facility] Neutrophils (Bld) [#/Vol] 12.77 10*3/uL High 1.57 - 6.19 K/uL [facility] Nucleated RBC/100 WBC (Bld) [Ratio] 0.0 % <=0.2 /100 WBC [facility] Platelet mean volume (Bld) [Entitic vol] 9.9 fL 8.7 - 12.3 fL [facility] Platelets (Bld) [#/Vol] 250 10*3/uL 146 - 337 K/uL [facility] RBC (Bld) [#/Vol] 5.17 10*6/uL [facility] Segmented neutrophils/100 WBC (Bld) 80.8 % [facility] WBC (Bld) [#/Vol] 15.81 10*3/uL High 3.73 - 10 .10 K/uL [facility] CBC AUTO DIFFon 05-15-2022 BASO # 0.0 103/ul Normal 0.0-0.1 [facility] Comment on above: Performed By: #### C BC #### [facility] [address] [place] [address] Dr. Dwight Waters Basophils/100 WBC (Bld) 0.3 % Normal 0.2-2.0 [facility] Comment on above: Performed By: #### C BC #### [facility] [address] [place] [address] Dr. Dwight Waters EO # 0.1 103/ul Normal 0.0-0.7 [facility] Comment on above: Performed By: #### C BC #### [facility] [address] [place] [address] Dr. Dwight Waters Eosinophils/100 WBC (Bld) 0.8 % Critically low 0.9-7.0 [facility] Comment on above: Performed By: #### C BC #### [facility] [address] [place] [address] Dr. Dwight Waters Erythrocyte distribution width (RBC) [Ratio] 12.7 % Normal 11.0-15.0 [facility] Comment on above: Performed By: #### C BC #### [facility] [address] [place] [address] Dr. Dwight Waters Hematocrit (Bld) [Volume fraction] 43.5 % Normal 42.0-54.0 [facility] Comment on above: Performed By: #### C BC #### [facility] [address] [place] [address] Dr. Dwight Waters Hemoglobin (Bld) [Mass/Vol] 14.4 g/dL Normal 14.0-18.0 [facility] Comment on above: Performed By: #### C BC #### [facility] [address] [place] [address] Dr. wDight Waters IG # 0.02 10e3/ul Normal 0.00-0.03 [facility] Comment on above: Performed By: #### C BC #### [facility] [address] [place] [address] Dr. Dwight Waters IG % 0.2 % Normal 0.0-0.5 [facility] Comment on above: Performed By: #### C BC #### [facility] [address] [place] [address] Dr. Dwight Waters LYMPH # 1.5 103/ul Normal 1.2-3.8 [facility] Comment on above: Performed By: #### C BC #### [facility] [address] [place] [address] Dr. Dwight Waters Lymphocytes/100 WBC (Bld) 12.5 % Critically low 20.5-60.0 [facility] Comment on above: Performed By: #### C BC #### [facility] [address] [place] [address] Dr. Dwight Waters MANUAL DIFF REQ NO Normal [facility] Comment on above: Performed By: #### C BC #### [facility] [address] [place] [address] Dr. Dwight Waters MCH (RBC) [Entitic mass] 28.6 pg Normal 25.9-34.0 [facility] Comment on above: Performed By: #### C BC #### [facility] [address] [place] [address] Dr. Dwight Waters MCHC (RBC) [Mass/Vol] 33.1 g/dL Normal 29.9-35.2 [facility] Comment on above: Performed By: #### C BC #### [facility] [address] [place] [address] Dr. Dwight Waters MCV (RBC) [Entitic vol] 86.3 fL Normal 80.0-94.0 [facility] Comment on above: Performed By: #### C BC #### [facility] [address] [place] [address] Dr. Dwight Waters MONO # 1.0 103/ul Critically high 0.3-0.8 [facility] Comment on above: Performed By: #### C BC #### [facility] [address] [place] [address] Dr. Dwight Waters Monocytes/100 WBC (Bld) 8.2 % Normal 1.7-12.0 [facility] Comment on above: Performed By: #### C BC #### [facility] [address] [id number] Dwight Waters NEUT # 9.1 103/ul Critically high 1.4-6.5 [facility] Comment on above: Performed By: #### C BC #### [facility] [address] [id number] [address] Dwight Waters Neutrophils/100 WBC (Bld) 78.0 % Critically high 43.0-75.0 [facility] Comment on above: Performed By: #### C BC #### [facility] [address] [address] [address] Dwight Waters Platelet mean volume (Bld) [Entitic vol] 9.8 fL Normal 9.5-13.5 [facility] Comment on above: Performed By: #### C BC #### [facility] [address] [place] [address] Dr. Dwight Waters PLT 251 103/ul Normal 150-450 [facility] Comment on above: Performed By: #### C BC #### [facility] [address] [address] [address] Dwight Waters RBC 5.04 106/ul Normal 4.70-6.10 [facility] Comment on above: Performed By: #### C BC #### [facility] [address] [place], [place] [id number] Dr. Dwight Waters WBC 11.6 103/ul Critically high 4.0-11.0 [facility] Comment on above: Performed By: #### C BC #### [facility] [address] [place] [address] Dr. Dwight Waters CHEM 6 (LYTES, BUN CREA)on 0 05-15-2022 Anion gap [Moles/Vol] 12 mmol/L 7 - 17 mmol/L [facility] Chloride [Moles/Vol] 105 mmol/L 98 - 10 8 mmol/L [facility] CO2 [Moles/Vol] 26 mmol/L 21 - 31 mmol/L [facility] Creatinine [Mass/Vol] 2.85 mg/dL High 0.70 - 1.30 mg/dL [facility] GFR/1.73 sq M.predicted CKD-EPI (S/P/Bld) [Vol rate/Area] 26 Low >=60 mL/min/1.73m 2 [facility] Comment on above: Reported eGFR is bas ed on the CKD-EPI 2020 equation using creatinine, age, and sex. Potassium [Moles/Vol] 4.6 mmol/L 3.5 - 5.0 mmol/L [facility] Sodium [Moles/Vol] 138 mmol/L 135 - 145 mmol/L [facility] Urea nitrogen [Mass/Vol] 32 mg/dL High 7 - 25 mg/dL [facility] Urea nitrogen/Creatinine [Mass ratio] 11 mg/mg [facility] CT ABD/PELVIS WO CONon 05-15 CT ABD/PELVIS [...] transplanted kidney with moderate right-sided hydronephrosis. Atrophic [place] kidneys with moderate right-sided hydronephrosis. Multiple nonobstructive [...] transplanted kidney with moderate right-sided hydronephrosis. Atrophic [place] kidneys with moderate right-sided hydronephrosis. Multiple nonobstructive right renal calculi measuring up to 8 mm. FOLLOW-UP: Follow-up as clinically indicated. Electronically authenticated by: LYNDSAY JEAN Date: 2022-05-15 05:04 Normal [facility]30 SARS-CoV-2 (COVID-19) RNA ESTELITA+probe Ql (Unsp spec) Not detected Normal NOT DETECTED [facility] Comment on above: Result Comment: [...] for this test is supported by the [place] [employer] of [employer] and Human Service's declaration that [...] used). Performed By: #### U RTPCR #### [facility] [address] [place] [address] Dr. Dwight Waters GLUCOSEon 05-15-2022 Glucose [Mass/Vol] 141 mg/dL High 70 - 99 mg/dL [facility] GOLD TOP TUBEon 05-15-2022 [facility] HEPATIC FUNCTION PANELon Albumin [Mass/Vol] 4.3 g/dL 3.5 - 5.0 g/dL [facility] ALP [Catalytic activity/Vol] 85 U/L 32 - 126 U/L [facility] ALT [Catalytic activity/Vol] 13 U/L 10 - 52 U/L [facility] AST [Catalytic activity/Vol] 15 U/L 10 - 39 U/L [facility] Bilirubin [Mass/Vol] 0.8 mg/dL <1.5 [facility] Bilirubin.direct [Mass/Vol] 0.2 mg/dL <0.3 [facility] Interpretation and review of laboratory results Normal [facility] Protein [Mass/Vol] 7.3 g/dL 6.4 - 8.3 g/dL [facility] LIPASEon 05-15-2022 Lipase [Catalytic activity/Vol] 8 U/L Low 11 - 82 U/L [facility] No Panel Informationon 05-15 Interpretation and review of laboratory results Abnormal [facility] PROF 14(COMP METB)on 022 Albumin [Mass/Vol] 3.8 g/dL Normal 3.4-5.0 [facility] Comment on above: Performed By: #### U RTPCR #### [facility] [address] [place] [address] Dr. Dwight Waters Albumin/Globulin [Mass ratio] 1.1 {ratio} Normal [facility] Comment on above: Performed By: #### U RTPCR #### [facility] [address] [place] [address] Dr. Dwight Waters ALP [Catalytic activity/Vol] 92 U/L Normal 46-116 [facility] Comment on above: Performed By: #### U RTPCR #### [facility] [address] [place] [address] Dr. Dwight Waters ALT [Catalytic activity/Vol] 25 U/L Normal 16-63 [facility] Comment on above: Performed By: #### U RTPCR #### [facility] [address] [place] [address] Dr. Dwight Waters Anion gap [Moles/Vol] 14.6 mmol/L Normal [facility] Comment on above: Performed By: #### U RTPCR #### [facility] [address] [place] [address] Dr. Dwight Waters AST [Catalytic activity/Vol] 17 U/L Normal 15-37 [facility] Comment on above: Performed By: #### U RTPCR #### [facility] [address] [place] [address] Dr. Dwight Waters Bilirubin [Mass/Vol] 0.6 mg/dL Normal 0.2-1.0 [facility] Comment on above: Performed By: #### U RTPCR #### [facility] [address] [address] [address] Dwight Waters Calcium [Mass/Vol] 9.9 mg/dL Normal 8.5-10.1 [facility] Comment on above: Performed By: #### U RTPCR #### [facility] [address] [address] [address] Dwight Waters Chloride [Moles/Vol] 106 mmol/L Normal 98-107 [facility] Comment on above: Performed By: #### U RTPCR #### [facility] [address] [place] [address] Dr. Dwight Waters CO2 [Moles/Vol] 24.2 mmol/L Normal 21.0-32.0 [facility] Comment on above: Performed By: #### U RTPCR #### [facility] [address] [place] [address] Dr. Dwight Waters Creatinine [Mass/Vol] 1.58 mg/dL Critically high 0.70-1.30 [facility] Comment on above: Performed By: #### U RTPCR #### [facility] [address] [place] [address] Dr. Dwight Waters EGFR-AF CITIZEN [place] 56 mL/min/1.73m2 Critically low >=60 [facility] Comment on above: Performed By: #### U RTPCR #### [facility] [address] [address] [address] Dwight Waters EGFR-NON AF CITIZEN OF [place] 46 mL/min/1.73m2 Critically low >=60 [facility] Comment on above: Performed By: #### U RTPCR #### [facility] [address] [place] [address] Dr. Dwight Waters Globulin (S) [Mass/Vol] 3.5 g/dL Normal [facility] Comment on above: Performed By: #### U RTPCR #### [facility] [address] [place] [address] Dr. Dwight Waters Glucose [Mass/Vol] 162 mg/dL Critically high 74-106 [facility] Comment on above: Performed By: #### U RTPCR #### [facility] [address] [address] [address] Dwight Waters Potassium [Moles/Vol] 3.8 mmol/L Normal 3.5-5.1 [facility] Comment on above: Performed By: #### U RTPCR #### [facility] [address] [address] [address] Dwight Waters Protein [Mass/Vol] 7.3 g/dL Normal 6.4-8.2 [facility] Comment on above: Performed By: #### U RTPCR #### [facility] [address] [place] [address] Dr. Dwight Waters Sodium [Moles/Vol] 141 mmol/L Normal 136-145 [facility] Comment on above: Performed By: #### U RTPCR #### [facility] [address] [address] [address] Dwight Waters Urea nitrogen [Mass/Vol] 22.0 mg/dL Critically high 7.0-18.0 [facility] Comment on above: Performed By: #### U RTPCR #### [facility] [address] [place] [address] Dr. Dwight Waters Urea nitrogen/Creatinine [Mass ratio] 13.9 mg/mg Normal [facility] Comment on above: Performed By: #### U RTPCR #### [facility] [address] [place] [address] Dr. Dwight Waters Portable XR Chest Viewson [...] chest. IMPRESSION IMPRESSION: No acute cardiopulmonary disease [facility] Radiology Study observation (narrative) [facility] Portable XR Chest ViewsOrder ed By: Vladislav Omer on 05-15-2022 [facility] URINE DIPSTICK; REFLEX MICRO SCOPY; REFLEX CULTURE PERFORMABLEon 05-15-2022 Appearance (U) Clear Clear [facility] Color (U) Yellow Yellow [facility] Glucose Test strip (U) [Mass/Vol] 100 mg/dL Abnormal Negative [facility] Interpretation and review of laboratory results Abnormal [facility] Ketones (U) [Mass/Vol] Negative Negative [facility] [facility] Leukocyte esterase Test strip Ql (U) Large Abnormal Negative [facility] Nitrite Ql (U) Negative Negative [facility] pH (U) 6.0 [pH] 5.0 - 7.0 [facility] Protein (U) [Mass/Vol] 100 mg/dL Abnormal Negative [facility] RBC (U) [#/Vol] Large Abnormal Negative [facility] Specific gravity (U) [Rel density] 1.010 [facility] Urobilinogen (U) [Mass/Vol] 0.2 E.U./dL 0.2 E.U/dL, 1.0 E.U/dL [facility] URINE MICROSCOPIC WITH REFLE X TO CULTUREOrdered By: Rey Bro on 05-15-2022 Bacteria LM Ql (Urine sed) ABSENT ABSENT [facility] Epithelial cells.squamous LM Ql (Urine sed) ABSENT 1/hpf = 1+, 2-5/hpf = 2+, 0/hpf = 0+, ABSENT [facility] Interpretation and review of laboratory results Abnormal [facility] RBC LM.HPF (Urine sed) [#/Area] /[HPF] Abnormal 0 - 2 /HPF [facility] WBC LM.HPF (Urine sed) [#/Area] 10-20 Abnormal 0 - 5 /HPF [facility] CT ABD/PELVIS WO CONon 05-12 CT ABD/PELVIS WO CON Begin Addendum #[address] Lund 3:25 PM EST 05/11/2022. Begin Addendum #2 IMPRESSION below should also contain the followin. 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 The [place] kidneys are progressively atrophic bilaterally compared to [...] of 06/14/2020 are no longer present. The [place] distal right ureter is decompressed beyond this [...] with surgical history for renal graft and [place] right urinary drainage, as a discrete ureteroneocystostomy is not identified, and the graft may be draining via a ureteroureterostomy. Urology consultation recommended. 3. The [place] kidneys are bilaterally atrophic, with right renal sinus calcifications consistent with nonobstructing right [place] renal calculi up to 6 mm. Normal [facility] CBC AUTO DIFFon 05-11-2022 BASO # 0.1 103/ul Normal 0.0-0.1 [facility] Comment on above: Performed By: #### U RTPCR #### [facility] [address] [address] [address] Dwight Waters Basophils/100 WBC (Bld) 0.8 % Normal 0.2-2.0 [facility] Comment on above: Performed By: #### U RTPCR #### [facility] [address] [address] [address] Dwight Waters EO # 0.2 103/ul Normal 0.0-0.7 [facility] Comment on above: Performed By: #### U RTPCR #### [facility] [address] [place] [address] Dr. Dwight Waters Eosinophils/100 WBC (Bld) 2.5 % Normal 0.9-7.0 [facility] Comment on above: Performed By: #### U RTPCR #### [facility] [address] [place] [address] Dr. Dwight Waters Erythrocyte distribution width (RBC) [Ratio] 12.5 % Normal 11.0-15.0 [facility] Comment on above: Performed By: #### U RTPCR #### [facility] [address] [place] [address] Dr. Dwight Waters Hematocrit (Bld) [Volume fraction] 48.3 % Normal 42.0-54.0 [facility] Comment on above: Performed By: #### U RTPCR #### [facility] [address] [place] [address] Dr. Dwight Waters Hemoglobin (Bld) [Mass/Vol] 15.3 g/dL Normal 14.0-18.0 [facility] Comment on above: Performed By: #### U RTPCR #### [facility] [address] [place] [address] Dr. Dwight Waters IG # 0.01 10e3/ul Normal 0.00-0.03 [facility] Comment on above: Performed By: #### U RTPCR #### [facility] [address] [place] [address] Dr. Dwight Waters IG % 0.2 % Normal 0.0-0.5 [facility] Comment on above: Performed By: #### U RTPCR #### [facility] [address] [place] [address] Dr. Dwight Waters LYMPH # 1.9 103/ul Normal 1.2-3.8 [facility] Comment on above: Performed By: #### U RTPCR #### [facility] [address] [place] [address] Dr. Dwight Waters Lymphocytes/100 WBC (Bld) 29.8 % Normal 20.5-60.0 [facility] Comment on above: Performed By: #### U RTPCR #### [facility] [address] [place] [address] Dr. Dwight Waters MANUAL DIFF REQ NO Normal [facility] Comment on above: Performed By: #### U RTPCR #### [facility] [address] [place] [address] Dr. Dwight Waters MCH (RBC) [Entitic mass] 28.2 pg Normal 25.9-34.0 [facility] Comment on above: Performed By: #### U RTPCR #### [facility] [address] [place] [address] Dr. Dwight Waters MCHC (RBC) [Mass/Vol] 31.7 g/dL Normal 29.9-35.2 [facility] Comment on above: Performed By: #### U RTPCR #### [facility] [address] [place] [address] Dr. Dwight Waters MCV (RBC) [Entitic vol] 89.1 fL Normal 80.0-94.0 [facility] Comment on above: Performed By: #### U RTPCR #### [facility] [address] [place] [address] Dr. Dwight Waters MONO # 0.6 103/ul Normal 0.3-0.8 [facility] Comment on above: Performed By: #### U RTPCR #### [facility] [address] [place] [address] Dr. Dwight Waters Monocytes/100 WBC (Bld) 9.0 % Normal 1.7-12.0 [facility] Comment on above: Performed By: #### U RTPCR #### [facility] [address] [place] [address] Dr. Dwight Waters NEUT # 3.6 103/ul Normal 1.4-6.5 [facility] Comment on above: Performed By: #### U RTPCR #### [facility] [address] [place] [address] Dr. Dwight Waters Neutrophils/100 WBC (Bld) 57.7 % Normal 43.0-75.0 [facility] Comment on above: Performed By: #### U RTPCR #### [facility] [address] [place] [address] Dr. Dwight Waters Platelet mean volume (Bld) [Entitic vol] 9.9 fL Normal 9.5-13.5 [facility] Comment on above: Performed By: #### U RTPCR #### [facility] [address] [place] [address] Dr. Dwight Waters PLT 249 103/ul Normal 150-450 [facility] Comment on above: Performed By: #### U RTPCR #### [facility] [address] [place] [address] Dr. Dwight Waters RBC 5.42 106/ul Normal 4.70-6.10 [facility] Comment on above: Performed By: #### U RTPCR #### [facility] [address] [place] [address] Dr. Dwight Waters WBC 6.3 103/ul Normal 4.0-11.0 [facility] Comment on above: Performed By: #### U RTPCR #### [facility] [address] [place] [address] Dr. Dwight Waters ER URINE PROFILEon 2 Bilirubin Ql (U) Unable to perform te sting due to color interference. Abnormal NEGATIVE [facility] Comment on above: Performed By: #### U RTPCR #### [facility] [address] [place] [address] Dr. Dwight Waters Clarity (U) TURBID Abnormal CLEAR [facility] Comment on above: Performed By: #### U RTPCR #### [facility] [address] [place] [address] Dr. Dwight Waters Color (U) RED Abnormal YELLOW [facility] Comment on above: Performed By: #### U RTPCR #### [facility] [address] [place] [address] Dr. Dwight Waters ERUAHD A micrscopic examina tion will be performed if indicated. Normal [facility] Comment on above: Performed By: #### U RTPCR #### [facility] [address] [place] [address] Dr. Dwight Waters Glucose Ql (U) Unable to perform te sting due to color interference. Abnormal NEGATIVE [facility] Comment on above: Performed By: #### U RTPCR #### [facility] [address] [place] [address] Dr. Dwight Waters Hemoglobin Ql (U) Unable to perform te sting due to color interference. Abnormal NEGATIVE [facility] Comment on above: Performed By: #### U RTPCR #### [facility] [address] [place] [address] Dr. Dwight Waters Ketones Ql (U) Unable to perform te sting due to color interference. Abnormal NEGATIVE [facility] Comment on above: Performed By: #### U RTPCR #### [facility] [address] [place] [address] Dr. Dwight Waters LEUKOCYTES Unable to perform te sting due to color interference. Abnormal NEGATIVE [facility] Comment on above: Performed By: #### U RTPCR #### [facility] [address] [place] [address] Dr. Dwight Waters Nitrite Ql (U) Unable to perform te sting due to color interference. Abnormal NEGATIVE [facility] Comment on above: Performed By: #### U RTPCR #### [facility] [address] [place] [address] Dr. Dwight Waters pH (U) 6.5 [pH] Normal 5-9 [facility] Comment on above: Performed By: #### U RTPCR #### [facility] [address] [place] [address] Dr. Dwight Waters SPEC GRAVITY 1.020 Normal 1.005-<=1.02 5 [facility] Comment on above: Performed By: #### U RTPCR #### [facility] [address] [place] [address] Dr. Dwight Waters UA PROTEIN Unable to perform te sting due to color interference. Normal NEGATIVE/ TRACE [facility] Comment on above: Performed By: #### U RTPCR #### [facility] [address] [place] [address] Dr. Dwight Waters UR MICRO IND INDICATED Normal [facility] Comment on above: Performed By: #### U RTPCR #### [facility] [address] [place] [address] Dr. Dwight Waters UROBILINOGEN Unable to perform te sting due to color interference. Normal 0.2 - 1.0 [facility] Comment on above: Performed By: #### U RTPCR #### [facility] [address] [place] [address] Dr. Dwight Waters PROF 14(COMP METB)on 022 Albumin [Mass/Vol] 3.8 g/dL Normal 3.4-5.0 [facility] Comment on above: Performed By: #### C MP #### [facility] [address] [place] [address] Dr. Dwight Waters Albumin/Globulin [Mass ratio] 1.1 {ratio} Normal [facility] Comment on above: Performed By: #### C MP #### [facility] [address] [place] [address] Dr. Dwight Waters ALP [Catalytic activity/Vol] 106 U/L Normal 46-116 [facility] Comment on above: Performed By: #### C MP #### [facility] [address] [place] [address] Dr. Dwight Waters ALT [Catalytic activity/Vol] 30 U/L Normal 16-63 [facility] Comment on above: Performed By: #### C MP #### [facility] [address] [place] [address] Dr. Dwight Waters Anion gap [Moles/Vol] 11.7 mmol/L Normal [facility] Comment on above: Performed By: #### C MP #### [facility] [address] [place] [address] Dr. Dwight Waters AST [Catalytic activity/Vol] 16 U/L Normal 15-37 [facility] Comment on above: Performed By: #### C MP #### [facility] [address] [place] [address] Dr. Dwight Waters Bilirubin [Mass/Vol] 0.6 mg/dL Normal 0.2-1.0 [facility] Comment on above: Performed By: #### C MP #### [facility] [address] [place] [address] Dr. Dwight Waters Calcium [Mass/Vol] 9.1 mg/dL Normal 8.5-10.1 [facility] Comment on above: Performed By: #### C MP #### [facility] [address] [address] [address] Dwight Waters CO2 [Moles/Vol] 27.4 mmol/L Normal 21.0-32.0 [facility] Comment on above: Performed By: #### C MP #### [facility] [address] [place] [address] Dr. Dwight Waters Creatinine [Mass/Vol] 1.18 mg/dL Normal 0.70-1.30 [facility] Comment on above: Performed By: #### C MP #### [facility] [address] [place] [address] Dr. Dwight Waters EGFR-AF CITIZEN [place] >60 Normal >=60 [facility] Comment on above: Performed By: #### C MP #### [facility] [address] [place] [address] Dr. Dwight Waters EGFR-NON AF CITIZEN OF [place] >60 Normal >=60 [facility] Comment on above: Performed By: #### C MP #### [facility] [address] [place] [address] Dr. Dwight Waters Globulin (S) [Mass/Vol] 3.6 g/dL Normal [facility] Comment on above: Performed By: #### C MP #### [facility] [address] [place] [address] Dr. Dwight Waters Glucose [Mass/Vol] 192 mg/dL Critically high 74-106 [facility] Comment on above: Performed By: #### C MP #### [facility] [address] [place] [address] Dr. Dwight Waters Potassium [Moles/Vol] 4.1 mmol/L Normal 3.5-5.1 [facility] Comment on above: Performed By: #### C MP #### [facility] [address] [place] [address] Dr. Dwight Waters Protein [Mass/Vol] 7.4 g/dL Normal 6.4-8.2 [facility] Comment on above: Performed By: #### C MP #### [facility] [address] [place] [address] Dr. Dwight Waters Sodium [Moles/Vol] 142 mmol/L Normal 136-145 [facility] Comment on above: Performed By: #### C MP #### [facility] [address] [place] [address] Dr. Dwight Waters Urea nitrogen [Mass/Vol] 17.0 mg/dL Normal 7.0-18.0 [facility] Comment on above: Performed By: #### C MP #### [facility] [address] [place] [address] Dr. Dwight Waters Urea nitrogen/Creatinine [Mass ratio] 14.4 mg/mg Normal [facility] Comment on above: Performed By: #### C MP #### [facility] [address] [place] [address] Dr. Dwight Waters URINE MICROSCOPIC ONLYon BACTERIA NONE SEEN Normal NONE SEEN [facility] Comment on above: Performed By: #### U RTPCR #### [facility] [address] [place] [address] Dr. Dwight Waters Bacteria identified Cx Nom (U) NOT INDICATED Normal [facility] Comment on above: Performed By: #### U RTPCR #### [facility] [address] [place] [address] Dr. Dwight Waters CAST NONE SEEN Normal NONE SEEN [facility] Comment on above: Performed By: #### U RTPCR #### [facility] [address] [place] [address] Dr. Dwight Waters Crystals LM Nom (Urine sed) NONE SEEN Normal NONE SEEN [facility] Comment on above: Performed By: #### U RTPCR #### [facility] [address] [place] [address] Dr. Dwight Waters Epithelial cells LM Ql (Urine sed) RARE Normal NONE SEEN /RARE [facility] Comment on above: Performed By: #### U RTPCR #### [facility] [address] [place] [address] Dr. Dwight Waters MUCOUS NONE SEEN Normal NONE SEEN [facility] Comment on above: Performed By: #### U RTPCR #### [facility] [address] [address] [address] Dwight Waters RBC (U) [#/Vol] /uL Abnormal 0-2 [facility] Comment on above: Performed By: #### U RTPCR #### [facility] [address] [place] [address] Dr. Dwight Waters WBC NONE SEEN Normal NONE SEEN [facility] Comment on above: Performed By: #### U RTPCR #### [facility] [address] [place] [address] Dr. Dwight Waters K (Potassium)on 01-06-2020 Potassium [Moles/Vol] 4.4 mmol/L Normal 3.7-5.3 [facility] Comment on above: Performed By: #### K #### [facility] [address] [place] [address] [employer] Worker: Kehinde Woodward MD Potassiumon 01-06-2020 Potassium [Moles/Vol] 4.4 mmol/L 3.7 - 5.3 mmol/L [facility] Work Phone: Hemoglobin and Hematocrit, B loodon 10-24-2019 Hematocrit (Bld) [Volume fraction] 23.6 % Low 40.7 - 50.3 % [place] Hemoglobin (Bld) [Mass/Vol] 7.3 g/dL Low 13 - 17 g/dL [place] Interpretation and review of laboratory results Abnormal [place] Hgb/Hcton 10-24-2019 Hematocrit (Bld) [Volume fraction] 23.6 % Low 40.7-50.3 [facility] Comment on above: Performed By: #### H H #### [facility] [address] [place], [place] [id number] [employer] Worker: Kehinde Woodward MD Hemoglobin (Bld) [Mass/Vol] 7.3 g/dL Low 13.0-17.0 [facility] Comment on above: Performed By: #### H H #### [facility] [address] [place] [address] [employer] Worker: Kehinde Woodward MD Hemoglobinon 08-27-2019 Hemoglobin (Bld) [Mass/Vol] 7.5 g/dL Low 13.0-17.0 [facility] Comment on above: Performed By: #### H GB #### [facility] [address] [place] [address] [employer] Worker: Kehinde Woodward MD Hemoglobin (Bld) [Mass/Vol] 7.5 g/dL Low 13 - 17 g/dL [place] Interpretation and review of laboratory results Abnormal [place] Hemoglobinon 08-08-2019 Hemoglobin (Bld) [Mass/Vol] 8.3 g/dL Low 13.0-17.0 [facility] Comment on above: Performed By: #### H GB #### [address] [place], [place] [id number] [employer] Worker: Kehinde Woodward MD Hemoglobin (Bld) [Mass/Vol] 8.3 g/dL Low 13 - 17 g/dL [place] Interpretation and review of laboratory results Abnormal [place] Hemoglobinon 08-04-2019 Hemoglobin (Bld) [Mass/Vol] 8.0 g/dL Low 13.0-17.0 [facility] Comment on above: Performed By: #### H GB #### [facility] [address] [place] [address] [employer] Worker: Kehinde Woodward MD Hemoglobin A1Con 08-03-2019 HbA1c (Bld) [Mass fraction] % Low 4.8-5.9 [facility] Comment on above: Result Comment: The ADA and AACC recommend providing the estimated average glucose result to permit better patient understanding of their HBA1c result. Performed By: #### G LYHGB #### [facility] [address] [place] [id number] [employer] Worker: Kehinde Woodward MD Glucose [Mass/Vol] mg/dL mg/dL [place] Comment on above: The ADA and AACC rec ommend providing the estimated average glucose result to permit better patient understanding of their HBA1c result. HbA1c (Bld) [Mass fraction] % Low 4.8 - 5.9 % [place] Interpretation and review of laboratory results Abnormal [place] Hemoglobinon 08-01-2019 Hemoglobin (Bld) [Mass/Vol] 8.1 g/dL Low 13.0-17.0 [facility] Comment on above: Performed By: #### H GB #### [facility] [address] [place] [id number] [employer] Worker: Kehinde Woodward MD Hemoglobin (Bld) [Mass/Vol] 8.1 g/dL Low 13 - 17 g/dL [place] Interpretation and review of laboratory results Abnormal [place] Hgb/Hcton 06-10-2019 Hematocrit (Bld) [Volume fraction] 24.3 % Low 40.7-50.3 [facility] Comment on above: Performed By: #### H H #### [facility] [address] [place] [id number] [employer] Worker: Kehinde Woodward MD Hemoglobin (Bld) [Mass/Vol] 7.4 g/dL Low 13.0-17.0 [facility] Comment on above: Performed By: #### H H #### [facility] [address] [place] [address] [employer] Worker: Kehinde Woodward MD Hemoglobinon 06-01-2019 Hemoglobin (Bld) [Mass/Vol] 7.2 g/dL Low 13.0-17.0 [facility] Comment on above: Performed By: #### H GB #### [facility] [address] [place] [address] [employer] Worker: Kehinde Woodward MD K (Potassium)on 01-14-2019 Potassium [Moles/Vol] 3.6 mmol/L Low 3.7-5.3 [facility] Comment on above: Performed By: #### K #### [facility] [address] [place] [address] [employer] Worker: Kehinde Woodward MD Otheron 10-19-2018 IMPRESSION: [...] characteristics determined by Toxicology Laboratory at [facility]. It has not been cleared [...] Amitriptyline(50), Amphetamine(250), Atenolol(500), Barbiturates(1000), Benzoylecgonine(50), Buprenorphine(50), Bupropion(25), Caffeine(97954), Chlordiazepoxide(50), Chlorpheniramine(100), Chlorpromazine(50), Citalopram(100), Clonazepam(200), Cocaine(25), Codeine(200), [...] by Screen method NONE DETECTED Invalid Interpretation QASIM Hay TOXICOLOGY SCREEN URINE - [facility]D [facility] 10-12-2018 Drugs identified Screen Nom (U) For Medical Purposes Only, Non-forensic, screen results are presumptive. No confirmatory testing will follow. Invalid Interpretation Code MISSY, [facility] Comment on above: This Liquid Chromato graphy Mass Spectrometry (LC/MS/MS) test was developed and its performance characteristics determined by Toxicology Laboratory at [facility]. It has not been cleared [...] Amitriptyline(50), Amphetamine(250), Atenolol(500), Barbiturates(200), Benzoylecgonine(50), Buprenorphine(500), Bupropion(25), Caffeine(12343), Cannabinoids(THC)(50), Chlordiazepoxide(50), Chlorpheniramine(100), Chlorpromazine(50), Citalopram(100), Clonazepam(200), Cocaine(25), [...] 56 mm[Hg] Candie Almaguer MD Work Phone: [facility] 02-26-2024 09:07-0400 Heart rate 65 /min Candie Almaguer MD Work Phone: [facility] 02-26-2024 09:07-0400 Systolic blood pressure 113 mm[Hg] Candie Almaguer MD Work Phone: [facility] 02-26-2024 09:06-0400 Body height 170.2 cm Candie Almaguer MD Work Phone: [facility] 02-26-2024 09:06-0400 Body mass index (BMI) [Ratio] 28.9 kg/m2 Candie Almaguer MD Work Phone: [facility] 02-26-2024 09:06-0400 Body weight 83.69 kg Candie Almaguer MD Work Phone: [facility] 02-26-2024 09:06-0400 Respiratory rate 20 /min Candie Almaguer MD Work Phone: [facility] 02-26-2024 09:06-0400 SaO2% (BldA) [Mass fraction] 97 % Candie Almaguer MD Work Phone: [facility] 01-23-2024 15:04-0500 Body temperature 97.9 [degF] Kevin Prince MD Work Phone: [facility] 01-23-2024 15:04-0500 Diastolic blood pressure 67 mm[Hg] Kevin Prince MD Work Phone: [facility] 01-23-2024 15:04-0500 Heart rate 51 /min Kevin Prince MD Work Phone: [facility] 01-23-2024 15:04-0500 Respiratory rate 16 /min Kevin Prince MD Work Phone: [facility] 01-23-2024 15:04-0500 SaO2% (BldA) [Mass fraction] 94 % Kevin Prince MD Work Phone: [facility] 01-23-2024 15:04-0500 Systolic blood pressure 151 mm[Hg] Kevin Prince MD Work Phone: [facility] 01-23-2024 10:46-0500 Body mass index (BMI) [Ratio] 30.94 kg/m2 Kevin Prince MD Work Phone: [facility] 01-23-2024 10:46-0500 Body weight 89.6 kg Kevin Prince MD Work Phone: [facility] 01-18-2024 11:21-0500 Body height 170.2 cm Kevin Prince MD Work Phone: [facility] 01-06-2024 09:04-0500 Body height 170.2 cm Zuly Bruno BOILER ASSISTANT OPERATOR Work Phone: [facility] 01-06-2024 09:04-0500 Body mass index (BMI) [Ratio] 32.42 kg/m2 Zuly Bruno BOILER ASSISTANT OPERATOR Work Phone: [facility] 01-06-2024 09:04-0500 Body temperature 97.81 [degF] Zuly Bruno BOILER ASSISTANT OPERATOR Work Phone: [facility] 01-06-2024 09:04-0500 Body weight 93.89 kg Zuly Aichholz BOILER ASSISTANT OPERATOR Work Phone: [facility] 01-06-2024 09:04-0500 Diastolic blood pressure 70 mm[Hg] Zuly Aichholz BOILER ASSISTANT OPERATOR Work Phone: [facility] 01-06-2024 09:04-0500 Heart rate 95 /min Zuly Aichholz BOILER ASSISTANT OPERATOR Work Phone: [facility] 01-06-2024 09:04-0500 Respiratory rate 17 /min Zuly Aichholz BOILER ASSISTANT OPERATOR Work Phone: [facility] 01-06-2024 09:04-0500 SaO2% (BldA) [Mass fraction] 99 % Zuly Aichholz BOILER ASSISTANT OPERATOR Work Phone: [facility] 01-06-2024 09:04-0500 Systolic blood pressure 138 mm[Hg] Zuly Aichholz BOILER ASSISTANT OPERATOR Work Phone: [facility] 09-11-2023 10:31-0400 Body temperature 97.81 [degF] Steve Yeison MBBS Work Phone: [facility] 09-11-2023 10:31-0400 Diastolic blood pressure 66 mm[Hg] Steve Yeison MBBS Work Phone: [facility] 09-11-2023 10:31-0400 Heart rate 70 /min Steve Yeison MBBS Work Phone: [facility] 09-11-2023 10:31-0400 Respiratory rate 20 /min Steve Yeison MBBS Work Phone: [facility] 09-11-2023 10:31-0400 SaO2% (BldA) [Mass fraction] 91 % Steve Yeison MBBS Work Phone: [facility] 09-11-2023 10:31-0400 Systolic blood pressure 129 mm[Hg] Steve Yeison MBBS Work Phone: [facility] 09-10-2023 15:50-0400 Body mass index (BMI) [Ratio] 31.99 kg/m2 Steve Yeison MBBS Work Phone: [facility] 09-10-2023 15:50-0400 Body weight 92.67 kg Steve Yeison MBBS Work Phone: [facility] 09-02-2023 07:32-0400 Body height 170.2 cm Steve Yeison MBBS Work Phone: [facility] 08-28-2023 13:33-0400 Body height 170.2 cm Steve Yeison MBBS Work Phone: [facility] 08-28-2023 13:33-0400 Body mass index (BMI) [Ratio] 32.12 kg/m2 Steve Yeison MBBS Work Phone: [facility] 08-28-2023 13:33-0400 Body temperature 97.3 [degF] Steve Yeison MBBS Work Phone: [facility] 08-28-2023 13:33-0400 Body weight 93.03 kg Steve Yeison MBBS Work Phone: [facility] 08-28-2023 13:33-0400 Diastolic blood pressure 41 mm[Hg] Steve Yeison MBBS Work Phone: [facility] 08-28-2023 13:33-0400 Heart rate 116 /min Steve Yeison MBBS Work Phone: [facility] 08-28-2023 13:33-0400 Systolic blood pressure 106 mm[Hg] Steve Yeison MBBS Work Phone: [facility] 06-12-2023 14:50-0400 Body mass index (BMI) [Ratio] 33.8 kg/m2 Rebeca Gutierrez 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 Work Phone: [facility] 06-12-2023 14:50-0400 Body temperature 97.3 [degF] Rebeca Gutierrez 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 Work Phone: [facility] 06-12-2023 14:50-0400 Body weight 97.89 kg Rebeca Gutierrez 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 Work Phone: [facility] 06-12-2023 14:50-0400 Diastolic blood pressure 77 mm[Hg] Rebeca Gutierrez 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 Work Phone: [facility] 06-12-2023 14:50-0400 Heart rate 76 /min Rebeca Gutierrez 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 Work Phone: [facility] 06-12-2023 14:50-0400 Systolic blood pressure 146 mm[Hg] Rebeca Gutierrez 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 Work Phone: [facility] 01-16-2023 08:57-0500 Body height 170.2 cm [facility] Work Phone: [facility] 01-16-2023 08:57-0500 Body mass index (BMI) [Ratio] 33.66 kg/m2 [facility] Work Phone: [facility] 01-16-2023 08:57-0500 Body temperature 97.3 [degF] [facility] Work Phone: [facility] 01-16-2023 08:57-0500 Body weight 97.48 kg [facility] Work Phone: [facility] 01-16-2023 08:57-0500 Diastolic blood pressure 75 mm[Hg] [facility] Work Phone: [facility] 01-16-2023 08:57-0500 Heart rate 76 /min [facility] Work Phone: [facility] 01-16-2023 08:57-0500 Systolic blood pressure 142 mm[Hg] [facility] Work Phone: [facility] 09-10-2022 09:38-0400 Body height 170.2 cm Ryan Hurt MD Work Phone: [facility] 09-10-2022 09:38-0400 Body mass index (BMI) [Ratio] 33.67 kg/m2 Ryan Hurt MD Work Phone: [facility] 09-10-2022 09:38-0400 Body weight 97.52 kg Ryan Hurt MD Work Phone: [facility] 09-10-2022 09:38-0400 Diastolic blood pressure 83 mm[Hg] Ryan Hurt MD Work Phone: [facility] 09-10-2022 09:38-0400 Heart rate 64 /min Ryan Hurt MD Work Phone: [facility] 09-10-2022 09:38-0400 SaO2% (BldA) [Mass fraction] 96 % Ryan Hurt MD Work Phone: [facility] 09-10-2022 09:38-0400 Systolic blood pressure 129 mm[Hg] Ryan Hurt MD Work Phone: [facility] 07-07-2022 13:48-0400 Diastolic blood pressure 76 mm[Hg] Ryan Hurt MD Work Phone: [facility] 07-07-2022 13:48-0400 Heart rate 82 /min Ryan Hurt MD Work Phone: [facility] 07-07-2022 13:48-0400 SaO2% (BldA) [Mass fraction] 96 % Ryan Hurt MD Work Phone: [facility] 07-07-2022 13:48-0400 Systolic blood pressure 141 mm[Hg] Ryan Hurt MD Work Phone: 5(616)005-055413 [address] 06-27-2022 13:32-0400 Body height 170.2 cm Ryan Hurt MD Work Phone: 9(272)[phone] [address] 06-27-2022 13:32-0400 Body mass index (BMI) [Ratio] 34.24 kg/m2 Ryan Hurt MD Work Phone: 7(901)[phone] [address] 06-27-2022 13:32-0400 Body temperature 98.6 [degF] Ryan Hurt MD Work Phone: 3(466)295-024[address] [place] [address] 06-27-2022 13:32-0400 Body weight 99.16 kg Ryan Hurt MD Work Phone: 9(952)[phone] [address] 06-27-2022 13:32-0400 Diastolic blood pressure 78 mm[Hg] Ryan Hurt MD Work Phone: [facility] 06-27-2022 13:32-0400 Heart rate 77 /min Ryan Hurt MD Work Phone: [facility] 06-27-2022 13:32-0400 SaO2% (BldA) [Mass fraction] 95 % Ryan Hurt MD Work Phone: [facility] 06-27-2022 13:32-0400 Systolic blood pressure 121 mm[Hg] Ryan Hurt MD Work Phone: [facility] 06-27-2022 10:52-0400 Body height 170.2 cm Rena Brewster RN [facility] 06-27-2022 10:52-0400 Body mass index (BMI) [Ratio] 34.46 kg/m2 Rena Brewster RN [facility] 06-27-2022 10:52-0400 Body temperature 98.2 [degF] Rena Brewster RN [facility] 06-27-2022 10:52-0400 Body weight 99.79 kg Rena Brewster RN [facility] 06-27-2022 10:52-0400 Diastolic blood pressure 73 mm[Hg] Rena Brewster RN [facility] 06-27-2022 10:52-0400 Heart rate 78 /min Rena Brewster RN [facility] 06-27-2022 10:52-0400 Respiratory rate 20 /min Rena Brewster RN [facility] 06-27-2022 10:52-0400 SaO2% (BldA) [Mass fraction] 97 % Rena Brewster RN [facility] 06-27-2022 10:52-0400 Systolic blood pressure 135 mm[Hg] Rena Brewster RN [facility] 06-12-2022 14:23-0400 Body mass index (BMI) [Ratio] 34.59 kg/m2 Steve Farrari MBBS Work Phone: [facility] 06-12-2022 14:23-0400 Body temperature 97 [degF] Steve Farrari MBBS Work Phone: [facility] 06-12-2022 14:23-0400 Body weight 100.2 kg Steve Yeison MBBS Work Phone: [facility] 06-12-2022 14:23-0400 Diastolic blood pressure 66 mm[Hg] Steve Yeison MBBS Work Phone: [facility] 06-12-2022 14:23-0400 Heart rate 63 /min Steve Yeison MBBS Work Phone: [facility] 06-12-2022 14:23-0400 Systolic blood pressure 133 mm[Hg] Steve LEIGH Work Phone: [facility] 05-20-2022 15:21-0400 Body temperature 97.9 [degF] Gian Villatoro MD Work Phone: [facility] 05-20-2022 15:21-0400 Diastolic blood pressure 64 mm[Hg] Gian Villatoro MD Work Phone: [facility] 05-20-2022 15:21-0400 Heart rate 55 /min Gian Villatoro MD Work Phone: [facility] 05-20-2022 15:21-0400 Respiratory rate 15 /min Gian Villatoro MD Work Phone: [facility] 05-20-2022 15:21-0400 SaO2% (BldA) [Mass fraction] 95 % Gian Villatoro MD Work Phone: [facility] 05-20-2022 15:21-0400 Systolic blood pressure 145 mm[Hg] Gian Villatoro MD Work Phone: [facility] 05-19-2022 12:15-0400 Body mass index (BMI) [Ratio] 35.87 kg/m2 Gian Villatoro MD Work Phone: [facility] 05-19-2022 12:15-0400 Body weight 103.92 kg Gian Villatoro MD Work Phone: [facility] Comment on above: standing scale 05-16-2022 16:19-0400 Body height 170.2 cm Gian Villatoro MD Work Phone: [facility] 10-19-2018 08:44-0500 BMI (Body Mass Index) 26.58 kg/m2 Christin Samycolt [facility] Work Phone: 10-19-2018 08:44-0500 BP Diastolic 76 mm[Hg] [facility] Work Phone: 10-19-2018 08:44-0500 BP Systolic 144 mm[Hg] [facility] Work Phone: 10-19-2018 08:44-0500 Height 172.7 cm [facility] Work Phone: 10-19-2018 08:44-0500 Pulse (Heart Rate) 92 /min [facility] Work Phone: 10-19-2018 08:44-0500 Pulse Oximetry 99 % [facility] Work Phone: 10-19-2018 08:44-0500 Respiratory Rate 16 /min [facility] Work Phone: 10-19-2018 08:44-0500 Weight 79.29 kg [facility] Work Phone: 10-12-2018 09:50-0500 BMI (Body Mass Index) 27.24 kg/m2 [facility] Work Phone: 10-12-2018 09:50-0500 Body Temperature 98.6 [degF] [facility] Work Phone: 10-12-2018 09:50-0500 BP Diastolic 80 mm[Hg] [facility] Work Phone: 10-12-2018 09:50-0500 BP Systolic 157 mm[Hg] [facility] Work Phone: 10-12-2018 09:50-0500 [facility] Work Phone: 10-12-2018 09:50-0500 Pulse (Heart Rate) 94 /min [facility] Work Phone: 10-12-2018 09:50-0500 Weight 78.29 kg [facility] Work Phone: Encounters Encounter Date Encounter Type Care Provider Facility Start: 03-24-2024 End: 03-24-2024 Patient encounter procedure Angel Carpio [facility],PharmD Pharmacy Outpatient [facility] Start: 03-24-2024 End: 03-24-2024 ambulatory JOHNNA BRINK Not Available Start: 03-22-2024 End: 03-22-2024 ambulatory JOHNNA BRINK Not Available Start: 03-17-2024 End: 03-17-2024 ambulatory JOHNNA BRINK Not Available Start: 03-14-2024 End: 03-14-2024 ambulatory FIDELINA VILLEGASY Not Available Start: 03-10-2024 End: 03-10-2024 ambulatory JOHNNA BRINK Not Available Start: 03-08-2024 End: 03-08-2024 ambulatory JOHNNA BRINK Not Available Start: 03-03-2024 End: 03-03-2024 ambulatory JOHNNA BRINK Not Available Start: 03-02-2024 End: 03-02-2024 ambulatory Meka Munoz [facility] Pharm[facility] Outpatient [facility] Start: 03-02-2024 End: 03-02-2024 Patient encounter procedure Meka Munoz [facility] Pharm[facility] Outpatient [facility] [place] Start: 03-01-2024 ambulatory ZULY KIANA Facility: [facility] Start: 03-01-2024 End: 03-01-2024 ambulatory JOHNNA BRINK Not Available Start: 02-26-2024 [facility] Start: 02-26-2024 [facility] Start: 02-26-2024 End: 02-26-2024 Office outpatient new 30 minutes Candie Almaguer MD Work Phone: [employer] [facility] Comment on above: Heart failure, diast olic, acute (Primary Dx) Start: 02-25-2024 End: 02-25-2024 ambulatory FIDELINA SANCHEZ Not Available Start: 02-23-2024 End: 02-23-2024 ambulatory PALMA PALACIOS Not Available Start: 02-11-2024 End: 02-11-2024 ambulatory ZULY KIANA Not Available Start: 01-16-2024 Encounter for other preprocedural examination KELVIN PACHECO [facility] Start: 01-16-2024 End: 01-23-2024 Evaluation and management of inpatient KEVIN PRINCE Facility:[facility] Start: 01-16-2024 End: 01-23-2024 Evaluation and management of inpatient Kevin Prince MD Work Phone: [facility] Comment on above: Pleural effusion on right Start: 01-16-2024 End: 01-23-2024 Patient encounter status Kevin Prince MD Work Phone: [facility] Work Phone: Start: 01-12-2024 End: 01-12-2024 ambulatory Angel Fete RPh,PharmD Pharmacy Outpatient RX [place] Start: 01-12-2024 End: 01-12-2024 Patient encounter procedure Angel Fete RPh,PharmD Pharmacy Outpatient [facility] Start: 01-08-2024 Clinisync Result Encounter Generic External Data Provider [facility] External Department Unsolicited Start: 01-08-2024 Clinisync Result Encounter Generic External Data Provider [facility] External Department Unsolicited Start: 01-06-2024 End: 01-06-2024 ambulatory ZULY ELENZ Not Available Start: 01-06-2024 End: 01-06-2024 Office outpatient visit 25 minutes Zuly Kiana BOILER ASSISTANT OPERATOR Work Phone: [facility] Comment on above: Bilateral lower extr emity edema (Primary Dx); 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); Atherosclerosis 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); Obesity (BMI 30-39.9); DARLENE (obstructive sleep apnea); Tremor; Immunocompromised ([facility]); Primary hypertension ([facility]); Shortness of breath Start: 01-01-2024 Clinisync Result Encounter Generic External Data Provider [facility] External Department Unsolicited Start: 01-01-2024 Clinisync Result Encounter Generic External Data Provider [facility] External Department Unsolicited Start: 11-03-2023 End: 11-03-2023 ambulatory ZULY BRUNO Not Available Start: 10-06-2023 ambulatory Angel Madsencolt [facility],PharmD Pharmacy Outpatient [facility] [place] Start: 10-06-2023 Patient encounter procedure Angelnoah Carpio [facility],PharmD Pharmacy Outpatient [facility] [place] Start: 09-29-2023 [facility] Start: 09-24-[address] [facility] Facility: [facility] Start: 09-23-2023 ambulatory HAKEEM ALAMO Facility :[facility] Start: 09-15-2023 [facility] Start: 08-28-2023 End: 09-11-2023 Evaluation and management of inpatient KEVIN NIKI Facility:[facility] Start: 08-28-2023 End: 09-11-2023 Evaluation and management of inpatient Steve S Yeison LEIGH Work Phone: [id number] Start: 08-28-2023 ambulatory STEVE LATHAM Facility:[facility] Start: 08-28-2023 End: 08-28-2023 Office outpatient visit 25 minutes Steve LEIGH Work Phone: [facility] Comment on above: Immunosuppressed sta tus (Primary Dx); Kidney replaced by transplant; Aftercare following organ transplant; High risk medication use; Other general symptoms and signs; Abnormal blood chemistry; Hypertension secondary to other renal disorders Start: 08-19-2023 ambulatory Meka rueda [facility] Pharmacy Outpatient RX [place] Start: 08-19-2023 Patient encounter procedure Meka Munoz [facility] Pharmacy Outpatient RX [place] Start: 06-12-2023 ambulatory SELF SELF Facility:[facility] Start: 06-12-2023 End: 06-12-2023 Office outpatient visit 25 minutes Steve LEIGH Work Phone: [facility] Comment on above: 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) Start: 06-10-2023 ambulatory Maren Bar RPh,PharmD Pharmacy Outpatient RX [place] Start: 06-10-2023 Patient encounter procedure Maren Bar RPh,PharmD Pharmacy Outpatient RX [place] Start: 05-26-2023 ambulatory ZULY KIANA Facility: [facility] Start: 04-28-2023 End: 04-29-[address] DOCTOR EVANS Facility:[facility] Start: 04-13-2023 End: 04-13-2023 ambulatory [facility] Start: 03-12-2023 ambulatory Angel Fete RPh,PharmD Pharmacy Outpatient RX [place] Start: 03-12-2023 Patient encounter procedure Angel Fete RPh,PharmD Pharmacy Outpatient [facility] Start: 03-10-2023 ambulatory Angel Fete RPh,PharmD Pharmacy Outpatient [facility] Start: 03-10-2023 Patient encounter procedure Angel Fete RPh,PharmD Pharmacy Outpatient RX [place] Start: 03-02-2023 End: 03-03-[address] DOCTOR EVANS Facility:[facility] Start: 01-16-2023 End: 01-16-2023 Office outpatient visit 25 minutes Daisha Max DO Work Phone: [facility] Comment on above: Abnormal blood chemi stry (Primary Dx); Liver transplant recipient; Kidney replaced by transplant; Immunosuppressed status; Aftercare following organ transplant Start: 12-29-2022 End: 12-30-[address] DOCTOR EVANS Facility:[facility] Start: 11-04-2022 End: 11-05-[address] DOCTOR EVANS Facility:[facility] Start: 09-15-2022 End: 09-16-[address] DOCTOR EVANS Facility:[facility] Start: 09-10-2022 End: 09-10-2022 Office outpatient visit 25 minutes Ryan Hurt MD Work Phone: [facility] Comment on above: BPH with obstruction /lower urinary tract symptoms (Primary Dx); Encounter for screening for malignant neoplasm of prostate Start: 08-28-2022 End: 08-29-2022 ambulatory ROB BRUNO Facility:[facility] Start: 08-14-2022 End: 08-15-[address] DOCTOR EVANS Facility:[facility] Start: 07-07-2022 End: 07-07-2022 Patient encounter procedure Ryan Hurt MD Work Phone: [facility] Comment on above: Other hydronephrosis (Primary Dx); -donor kidney transplant recipient Start: 07-07-2022 End: 07-07-2022 Subsequent hospital visit by physician Ryan Hurt MD Work Phone: Department of Radiology Comment on above: Arrived Start: 07-03-2022 End: 07-04-[address] DOCTOR EVANS Facility:[facility] Start: 07-03-2022 End: 07-04-[address] DOCTOR EVANS Facility:[facility] Start: 06-27-2022 End: 06-27-2022 Office outpatient visit 25 minutes Ryan Hurt MD Work Phone: [facility] Comment on above: Other hydronephrosis (Primary Dx) Start: 06-27-2022 End: 06-27-2022 Subsequent hospital visit by physician Ryan Hurt MD Work Phone: Department of Radiology Comment [...] [place] Facility:[facility] Start: 03-14-2022 ambulatory Comfort Rivera [facility] Work Phone: Pharmacy Outpatient [facility] Start: 03-14-2022 Patient encounter procedure Comfort Rivera [facility] Work Phone: Pharmacy Outpatient [facility] Start: 06-14-2021 End: 06-14-2021 ambulatory Comfort Rivera [facility] Work Phone: [facility] Start: 06-14-2021 Patient encounter procedure Comfort Rivera [facility] Work Phone: [facility] Start: 01-20-2020 End: 01-27-2020 Patient encounter procedure PEPE CASE Facility:[facility] Start: 01-06-2020 End: 01-07-2020 Patient encounter procedure RENA GUDINO [facility] Start: 01-06-2020 End: 01-06-2020 Subsequent hospital visit by physician [facility] Start: 10-24-2019 End: 10-25-2019 Patient encounter procedure TANA CAMPA [facility] Start: 10-24-2019 End: 10-24-2019 Subsequent hospital visit by physician [facility] Start: 08-27-2019 End: 08-28-2019 Patient encounter procedure RENA GUDINO [facility] Start: 08-27-2019 End: 08-27-2019 Subsequent hospital visit by physician [facility] Start: 08-08-2019 End: 08-09-2019 Patient encounter procedure ROB PATINO [facility] Start: 08-08-2019 End: 08-08-2019 Subsequent hospital visit by physician [facility] Start: 08-03-2019 End: 08-04-2019 Patient encounter procedure ROB PATINO [facility] Start: 08-03-2019 End: 08-03-2019 Subsequent hospital visit by physician [facility] Start: 08-01-2019 End: 08-02-2019 [facility] Start: 08-01-2019 End: 08-01-2019 Subsequent hospital visit by physician [facility] Start: 06-10-2019 End: 06-11-2019 Patient encounter procedure RENA GUDINO [facility] Start: 06-01-2019 End: 06-02-2019 Patient encounter procedure RENA GUDINO [facility] Start: 01-14-2019 End: 01-15-2019 Patient encounter procedure RENA GUDINO [facility] Start: 11-17-2018 End: 11-17-2018 Patient encounter procedure Fidelina Pierson [email or web address] Pre Transplant Office Comment on above: Social Work Follow-u p Start: 10-19-2018 End: 10-19-2018 Patient encounter [facility] Pre Transplant Office Comment on [...] Start: 10-13-2018 End: 10-13-2018 Patient encounter procedure [facility] Pre Transplant Office Comment on above: Reschedule Outside Medical Allan rds Request Start: 10-12-2018 End: 10-12-2018 Patient encounter procedure Sophie Cary [facility] [[email or web address] Pre Transplant Office Comment on above: Alcoholic cirrhosis, unspecified whether ascites present (Primary Dx); Pre-transplant evaluation for liver transplant Start: 10-12-2018 End: 10-12-2018 Office outpatient new 60 minutes Alfredito Feliz Kiarapuja Work Phone: [facility] Pre Transplant Office Comment on above: Alcoholic cirrhosis, unspecified whether ascites present; ESRD (end stage renal disease) on dialysis; Pre-transplant evaluation for liver transplant Start: 10-06-2018 End: 10-06-2018 Patient encounter procedure Yovani Orr Work Phone: Department of Radiology Comment on above: Canceled (Insurance Company Redirected Pt) Start: 10-05-2018 Patient encounter status Comfort Rivera [facility] Work Phone: [facility] Procedures Date Procedure Procedure Detail Performing Clinician Start: 01-23-2024 Glucose measurement, blood Kelvin Pacheco MD, LU Work Phone: Start: 01-23-2024 Glucose measurement, blood Kelvin Pacheco MD, LU Work Phone: Start: 01-23-2024 Assay of magnesium [...] on above: Performed By: #### X M ####[facility] (DEFAULT)[address] [place] [address] Start: 01-22-2024 Assay of magnesium Just in [...] Start: 01-20-2024 ITRACONAZOLE LEVEL Jennifer norbert Alarcon [facility] Work Phone: Start: 01-20-2024 Oscillating [...] nos quantifica tion each organism Fidelina Alarcon [facility] Work Phone: Start: 01-18-2024 Echocardiography ZULY VANG [...] Work Phone: Start: 01-17-2024 Hepatic function panel Areils Mera MD Work Phone: Start: 01-17-2024 Iaad [...] AURIS SCREEN BY PCR Carol Ann Capps UNDERGROUND CONDUIT INSTALLER-AMBULATORY SERVICES REPRESENTATIVE Work Phone: Start: 01-08-2024 ALL CBC WITH AUTO DIFF Generic External Data Provider Start: 01-01-2024 ALL CBC WITH AUTO DIFF Generic External Data Provider Start: 09-23-2023 Follow-up visit Follow-up KATHLEENJenna Tray JASMEET Start: 09-11-2023 Glucose measurement, blood Kevin Prince [...] AURIS SCREEN BY PCR Carol Ann Capps UNDERGROUND CONDUIT INSTALLER-AMBULATORY SERVICES REPRESENTATIVE Work Phone: Start: 08-28-2023 CBC AND ELECTRONIC [...] above: Performed By: #### C MP #### [facility] [address] [place] [address] Dr. Dwight Waters Start: 07-07-2022 Rmvl nfros tube req fluoro guidance Ryan Hurt MD Work Phone: Start: 06-27-2022 Ct abdomen [...] Work Phone: Start: 05-17-2022 Assay of magnesium Leonorbr sergo Gamez MD Work Phone: Start: 05-17-2022 Plmt [...] recipient S/P liver trans plant Comfort Rivera [facility] Work Phone: Start: 04-08-2020 H/O: liver recipient Liver tra nsplant recipient Comfort Rivera [facility] Work Phone: Start: 01-06-2020 Potassium serum plasma/whole blood ROB KASMANI Start: 01-06-2020 Potassium serum plasma/whole blood Rena Rist Work Phone: Start: 10-24-2019 HEMOGLOBIN AND HEMAT OCRIT, BLOOD ROB KASDEYVII Start: 10-24-2019 Blood count hemoglobin Tana Katarzyna Colten Work Phone: Start: 09-20-2019 Colonoscopy Generic Pr [...] De ceased-donor kidney transplant recipient Comfort Rivera [facility] Work Phone: Start: 06-10-2019 HEMOGLOBIN AND HEMAT OCRIT, BLOOD ROB NIELSMANI Start: 06-01-2019 Blood count hemoglobin ROB KASMANI Start: 03-22-2019 Lipid 1996 panel - S fabricio or Plasma Comfort Rivera [facility] Work Phone: Start: 01-14-2019 Potassium serum plasma/whole blood ROB BUSCHI Start: 10-19-2018 End: 10-19-2018 Ultrasonography of abdomen Yovani Orr Work Phone: Start: 10-12-2018 End: 10-12-2018 Blood typing serologic abo Yovani Orr Work Phone: Start: 10-12-2018 End: 10-12-2018 Hemoglobin glycosylated a1c Yovani Orr Work Phone: Start: 10-12-2018 End: 10-12-2018 25 hydroxy includes fractions if performed Yovani Magalie Orr Work Phone: Start: 10-12-2018 End: 10-12-2018 Albumin serum plasma/whole blood Yovani Magalie Orr Work Phone: Start: 10-12-2018 [...] recipient Liver trans plant recipient Daisha Tray Max DO Work Phone: H/O: liver recipient S/P liver transplant Generic Provider History of renal transplant Kidn ey replaced by transplant Steve S Yeison MBBS Work Phone: History of renal transplant Dece ased-donor kidney transplant recipient Ryan Hurt MD Work Phone: History of renal transplant Kidn ey replaced by transplant Daisha Max DO Work Phone: History of renal transplant Kidn ey replaced by transplant Steve Colón Yeison MBBS Work Phone: History of renal transplant Kidn ey replaced by transplant Steve Latham MBBS Work Phone: History of renal transplant Dece ased-donor kidney transplant recipient Steve Latham MBBS Work Phone: Plan of Treatment Date Care Activity Detail Author Start: 09-20-2029 Screening for malignant neoplasm of colon [facility] Start: 03-28-2025 Potassium [Moles/volume] in Serum or Plasma POTASSIUM [facility] Start: 03-21-2025 Potassium [Moles/volume] in Serum or Plasma POTASSIUM [facility] Start: 02-28-2025 Potassium [Moles/volume] in Serum or Plasma POTASSIUM [facility] Start: 01-23-2025 Potassium [Moles/volume] in Serum or Plasma POTASSIUM [facility] Start: 08-31-2024 Screening for malignant neoplasm of lung [facility] Start: 06-17-2024 End: 06-17-2024 ambulatory [facility] Start: 06-17-2024 End: 06-17-2024 Patient encounter procedure [facility] Start: 03-22-2024 Fasting lipid profile LIPID SCREENING [facility] Start: 03-22-2024 Lipid panel [facility] Start: 02-26-2024 End: 02-26-2024 Patient encounter procedure 02/26/2024 9:30 AM EDT Office [facility] [address] [place] [address] Candie Almaguer MD [address] [place] [address] [facility] [employer] [facility] Kehinde Conner [facility] Start: 02-11-2024 End: 02-11-2024 Patient encounter procedure 02/11/2024 10:30 AM EDT Office Visit NOMKatarzyna BLUNT [address] [place] [address] Zuly Bruno, BA [address] [place] [phone] [facility] Start: 02-09-2024 End: 02-09-2024 Telemedicine consultation with patient 02/09/2024 3:30 PM EDT Telemedicine Infectious Diseases Care [facility] [address] [place] [phone] Hakeem Alamo MD [address] [facility] [address] [place] [address] [facility] Start: 01-15-2024 End: 01-15-2024 ambulatory [facility] Transplant [facility] Start: 01-15-2024 End: 01-15-2024 Patient encounter procedure [facility] Start: 01-06-2024 End: 01-06-2026 Echocardiogram 2D complete Echocardiogram 2D complete Echocardiography Routine DARLENE (obstructive sleep apnea) Primary hypertension (CMS/HCC) Bilateral lower extremity edema Shortness of breath Expected: 01/06/2024 (Approximate), Expires: 01/06/2026 [facility] Work Phone: Comment on above: Expected: 01/06/2024 (Approximate), Expi res: 01/06/2026 Start: 01-06-2024 End: 01-06-2024 Patient encounter procedure 01/06/2024 9:00 AM EST Office Visit [facility] [address] [place] [phone] Zuly Bruno, BA [address] [place] [phone] [facility] Start: 12-08-2023 End: 09-07-2024 CT Chest WO contrast [facility] Work Phone: Start: 12-01-2023 COVID-19 VACCINE (2 - Moderna risk series) COVID-19 VACCINE (2 - Moderna risk series) [facility] Start: 09-23-2023 End: 09-23-[address] [facility] Start: 09-23-2023 End: 09-23-2023 Telemedicine consultation with patient 09/23/2023 4:00 PM EDT Telemedicine Infectious Diseases Care [facility] [address] [place] [address] Hakeem lAamo MD [address] [place], [place] [phone] Infectious Diseases Care [facility] Start: 09-15-2023 End: 09-10-2024 ITRACONAZOLE LEVEL [facility] Start: 08-25-2023 End: 08-25-2024 ALLOSCREEN RECIPIENT (POST TX PRA) ALLOSCREEN RECIPIENT (POST TX PRA) Lab Routine Kidney replaced by transplant Aftercare following organ transplant Immunosuppressed status High risk medication use Other general symptoms and signs Abnormal blood chemistry Expected: 08/25/2023, Expires: 08/25/2024 [facility] Comment on above: Expected: 08/25/2023, Expires: Start: 07-31-2023 Influenza vaccination [facility] Start: 06-12-2023 End: 06-12-2023 Patient encounter procedure 06/12/2023 Office Visit Transplant Surgery Steve Latham MBBS [address] [place] [address] [facility] Start: 03-11-2023 End: 03-11-2023 Telemedicine consultation with patient 03/11/2023 Telemedicine UrologRyan Batista MD [address] [facility] [address] [place] [address] [facility] Start: 01-16-2023 End: 01-16-2023 Patient encounter procedure 01/16/2023 Office Visit Transplant Surgery [facility] Start: 10-31-2022 End: 10-31-2022 Patient encounter procedure 10/31/2022 Office Visit Transplant Surgery Steve Latham, JOSHBS [address] [place] [address] [facility] Start: 09-10-2022 End: 09-10-2023 PSA screening PSA, SCREENING Lab Routine BPH with obstruction/lower urinary tract symptoms Encounter for screening for malignant neoplasm of prostate Expected: 09/10/2022 (Approximate), Expires: 09/10/2023 [facility] Comment on above: Expected: 09/10/2022 (Approximate), Expi res: 09/10/2023 Start: 08-11-2022 End: 08-11-2022 Patient encounter procedure 08/11/2022 Office Visit Ryan Webster MD [address] [facility] [address] [place] [address] [facility] Start: 07-31-2022 Influenza vaccination [facility] Start: 07-07-2022 End: 07-07-2022 Patient encounter procedure 07/07/2022 Office Visit Ryan Webster MD [address] [facility] [address] [place] [phone] [facility] Start: 07-07-2022 End: 07-07-2023 FLUORO IMAGING FOR UROLOGY [facility] Comment on above: Expected: 07/07/2022, Expires: 3 1 Occurrences starti ng 07/07/2022 until 07/07/2022 Start: 06-27-2022 End: 06-27-2022 Patient encounter procedure 06/27/2022 Office Visit Urology Ryan Hurt MD [address] [facility] [address] [place] [phone] [facility] Start: 06-27-2022 End: 06-27-2023 Basic metabolic 2000 panel - Serum or Plasma BASIC METABOLIC PANEL Lab Routine Other hydronephrosis Expected: 06/27/2022, Expires: 06/27/2023 [facility] Comment on above: Expected: 06/27/2022, Expires: Start: 06-27-2022 End: 06-27-2022 Patient encounter procedure 06/27/2022 Appointment Computerized Tomography Scan Ryan Hurt MD [address] [facility] [address] [place] [id number] Department of Radiology Start: 06-15-2022 End: 05-16-2023 CT Abdomen and Pelvis WO contrast CT ABDOMEN/PELVIS WITHOUT CONTRAST Imaging Routine FAYE (acute kidney injury) Expected: 06/15/2022 (Approximate), Expires: 05/16/2023 [facility] Work Phone: Comment on above: Expected: 06/15/2022 (Approximate), Expi res: 05/16/2023 Start: 06-12-2022 End: 06-12-2022 Patient encounter procedure 06/12/2022 Office Visit Transplant Surgery Steve Latham, LU [address] [place] [address] [facility] Start: 06-11-2022 End: 06-11-2023 BK VIRUS DNA QN, PCR, PLASMA BK VIRUS DNA QN, PCR, PLASMA Lab Routine Kidney replaced by transplant Liver replaced by transplant Abnormal blood chemistry Expected: 06/11/2022, Expires: 06/11/2023 [facility] Comment on above: Expected: 06/11/2022, Expires: Start: 06-04-2022 End: 06-04-2022 Patient encounter procedure 06/04/2022 Office Visit [facility]iology [facility] Start: 10-18-2021 End: 10-18-2021 Patient encounter procedure 10/18/2021 Office Visit Transplant Surgery Steve Latham, LU [address] [place] [phone] [facility] Start: 07-31-2021 Influenza vaccination INFLUENZA VACCINE (#1) [facility] Start: 07-26-2021 End: 07-26-2021 Patient encounter procedure 07/26/2021 Office Visit Transplant Surgery [facility] Start: 2021 Prostate specific antigen measurement [facility] Start: 2021 Screening for malignant neoplasm of lung LUNG CANCER SCREENING [facility] Start: 2021 Zoster vaccine hzv live for subcutaneous use ZOSTER (SHINGLES) VACCINE (1 of 2) [facility] Start: 09-20-2020 Colonoscopy COLORECTAL CANCER SCREENING DISCUSSION [facility] Start: 09-20-2020 Screening for malignant neoplasm of colon [facility] Start: 07-31-2019 Influenza vaccination Flu vaccine (#1) [place] Start: 05-22-2019 Annual Wellness Visit (AWV) Annual Wellness Visit (AWV) [place] Start: 04-18-2019 End: 10-19-2019 Ultrasonography of abdomen US ABDOMEN RUQ/LIVER/GB Routine Cirrhosis of liver without ascites, unspecified hepatic cirrhosis type Expected: 04/18/2019 (Approximate), Expires: 10/19/2019 [facility] Work Phone: Comment on above: Expected: 04/18/2019 (Approximate), Expi res: 10/19/2019 Start: 01-25-2019 End: 01-25-2019 Ambulatory 01/25/2019 Office Visit Gastroenterology Christin Elizabeth, 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 [address] [place] [address] Division of Gastroenterology and Hepatology Gavin Start: 11-19-2018 End: 11-19-2018 Ambulatory 11/19/2018 Appointment [facility] Start: 11-19-2018 End: 11-19-2018 Ambulatory [facility] Start: 10-19-2018 End: 10-19-2018 Ambulatory Ultrasound Jakob Start: 10-12-2018 End: 10-12-2019 Hemoglobin A1c/Hemoglobin.total mass fraction (Bld) HEMOGLOBIN A1C Routine Alcoholic cirrhosis, unspecified whether ascites present Pre-transplant evaluation for liver transplant Expected: 10/12/2018, Expires: 10/12/2019 [facility] Work Phone: Comment on above: Expected: 10/12/2018, Expires: 9 Start: 10-12-2018 End: 10-12-2019 TYPE AND SCREEN - NOT FOR TRANSFUSION TYPE AND SCREEN - NOT FOR TRANSFUSION Routine Alcoholic cirrhosis, unspecified whether ascites present Pre-transplant evaluation for liver transplant Expected: 10/12/2018, Expires: 10/12/2019 [facility] Work Phone: Comment on above: Expected: 10/12/2018, Expires: 9 Start: 07-31-2018 Influenza vaccination INFLUENZA VACCINE (#1) [facility] Work Phone: Start: 2011 Fasting lipid profile LIPID SCREENING [facility] Work Phone: Start: 2011 Lipid screen Lipid screen [place] Start: 1990 DTaP/Tdap/Td vaccine (1 - Tdap) DTaP/Tdap/Td vaccine (1 - Tdap) [place] Start: 1990 Hepatitis B vaccination HEP B VACCINE (1 of 3 - 19+ 3-dose series) [facility] Start: 1990 Hepatitis B Vaccine (1 of 3 - Risk Recombivax 3-dose series) Hepatitis B Vaccine (1 of 3 - Risk Recombivax 3-dose series) [place] Start: 1990 Third diphtheria, tetanus and acellular pertussis (DTaP) vaccination [facility] Start: 1990 Zoster vaccine hzv live for subcutaneous use ZOSTER (SHINGLES) VACCINE (1 of 2) [facility] Start: 1990 [facility] Start: 1989 Tetanus vaccination TETANUS [facility] Start: 1986 HIV screen HIV screen [place], [place] Start: 02-17-1984 HIV screening HIV SCREENING DISCUSSION [facility] Work Phone: Start: 1983 COVID-19 VACCINE (1) COVID-19 VACCINE (1) [facility] Start: 1982 DTaP/Tdap/Td vaccine (1 - Tdap) DTaP/Tdap/Td vaccine (1 - Tdap) [place] Start: 1977 Pneumococcal 0-64 years Vaccine (1 of 3 - PCV13) Pneumococcal 0-64 years Vaccine (1 of 3 - PCV13) [place] Start: 1977 PNEUMOCOCCAL VACCINE SERIES (1 - PCV) PNEUMOCOCCAL VACCINE SERIES (1 - PCV) [facility] Start: 1977 PNEUMOCOCCAL VACCINE SERIES (1 of 2 - PCV) PNEUMOCOCCAL VACCINE SERIES (1 of 2 - PCV) [facility] Start: 1977 [facility] Start: 02-17-1976 COVID-19 VACCINE (#1) COVID-19 VACCINE (#1) [facility] Start: 02-17-1976 [facility] Start: 1971 COVID-19 VACCINE (#1) COVID-19 VACCINE (#1) [facility] Start: 1971 Hepatitis B vaccination HEP B VACCINE (1 of 3 - 3-dose series) [facility] Start: 1971 Medicare Annual Wellness (AWV) Medicare Annual Wellness (AWV) [facility] Start: 1971 Screening for malignant neoplasm of colon [facility] Start: 1971 Tetanus vaccination [facility] BK VIRUS DNA QN, PCR , PLASMA BK VIRUS DNA QN, PCR, PLASMA Lab Routine Kidney replaced by transplant Liver replaced by transplant Abnormal blood chemistry 06/12/2022 3:38 PM EDT [facility] CALCULI, URINARY (KIDNEY STONE) CALCULI, URINARY (KIDNEY STONE) Fluids Routine 05/19/2022 8:16 AM EDT [facility] Work Phone: CANNABINOIDS, QUANT (URINE)THC CONFIRMATION CANNABINOIDS, QUANT (URINE)THC CONFIRMATION Routine Alcoholic cirrhosis, unspecified whether ascites present ESRD (end stage renal disease) on dialysis Pre-transplant evaluation for liver transplant 10/12/2018 12:57 PM [facility] Work Phone: End: 09-10-2024 CHEM 6 (LYTES, BUN CREA) [facility] EBV VCA IGG AB EBV VCA IGG AB R outine Alcoholic cirrhosis, unspecified whether ascites present ESRD (end stage renal disease) on dialysis Pre-transplant evaluation for liver transplant 10/12/2018 12:57 PM [facility] Work Phone: Fungus identified in Unspecified specimen by Culture [facility] HLA TYPING (SOLID ORGAN) HLA TYPING (SOLID ORGAN) Routine Alcoholic cirrhosis, unspecified whether ascites present ESRD (end stage renal disease) on dialysis Pre-transplant evaluation for liver transplant 10/12/2018 12:57 PM [facility] Work Phone: HSV 1 AND 2 IGG ANTIBODY HSV 1 AND 2 IGG ANTIBODY Routine Alcoholic cirrhosis, unspecified whether ascites present ESRD (end stage renal disease) on dialysis Pre-transplant evaluation for liver transplant 10/12/2018 12:57 PM [facility] Work Phone: 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 specific culture [facility] PLACEMENT NEPHROSTOM Y CATHETER PERCUTANEOUS W/ IMAGE GUIDANCE PLACEMENT NEPHROSTOMY CATHETER PERCUTANEOUS W/ IMAGE GUIDANCE Imaging Routine Hydronephrosis due to obstruction of ureteral orifice FAYE (acute kidney injury) 05/17/2022 11:08 AM EDT [facility] NE POST VOID RESIDUAL NE POST VO ID RESIDUAL NE - OFFICE PERFORMED Routine BPH with obstruction/lower urinary tract symptoms Ordered: 09/10/2022 [facility] Comment on above: Ordered: 09/10/2022 PTH INTACT PTH INTACT Routi ne Alcoholic cirrhosis, unspecified whether ascites present ESRD (end stage renal disease) on dialysis Pre-transplant evaluation for liver transplant 10/12/2018 12:57 PM [facility] Work Phone: RUBEOLA IGG AB (IMMU NE STATUS) RUBEOLA IGG AB (IMMUNE STATUS) Routine Alcoholic cirrhosis, unspecified whether ascites present ESRD (end stage renal disease) on dialysis Pre-transplant evaluation for liver transplant 10/12/2018 12:57 PM [facility] Work Phone: End: 01-16-2024 Standard ECG ECG ECG Routine One Time for 1 Occurrences starting 01/16/2024 until 01/16/2024 [facility] Comment on above: One Time for 1 Occurrences starting 12/31 until 01/16/2024 End: 09-10-2024 TACROLIMUS LEVEL, TROUGH (PRE DRUG LEVEL) [facility] VARICELLA IGG AB (IM M STATUS) VARICELLA IGG AB (IMM STATUS) Routine Alcoholic cirrhosis, unspecified whether ascites present ESRD (end stage renal disease) on dialysis Pre-transplant evaluation for liver transplant 10/12/2018 12:57 PM [facility] Work Phone: Immunizations Immunization Date Immunization Notes Care Provider Fa jimmyty 11-03-2023 influenza virus vacc ine, unspecified formulation Generic Provider [facility] 11-03-2023 Moderna SARS-CoV-2 50mcg/0.5mL Booster Generic Provider [facility] Payers Date Payer Category Payer Unknown [id number] 2019 Unknown [facility] [id number] 2019-Present [id number] 2018 Medicaid [place]ICAID [place] [facility] DE[facility] JOB xxxxxxxxxxxx 2018-Present [phone] [address] [place] [address] xxxxxxxxxxxx [id number] [id number] 2018 Medicaid MEDICAID MEDICAI D [id number] 2018-Present [address] [place] [address] [id number] .[id number] 2018 Medicaid [id number] .[id number] 2018 Medicare MEDICARE MEDICAR E PART A AND B xxxxxxxxxxx 2018-Present [phone] [address] [address] [place] [address] xxxxxxxxxxx [id number] .[id number] 2018 Medicare [id number] 2018 Medicare MEDICARE MEDICAR E A AND B [id number] 2018-Present [address] [place] [address] [id number] .[id number] 2018 Medicare [id number]. 1.13.172.2.7.3 .415493.315 1971 Unknown [id number] 2.16.840.1.735393.3.579.2.173 1971 Unknown [id number] 2.16.840.1.021101.3.579.2.173 1971 Unknown [id number] 2.16.840.1.708254.3.579.2.173 1971 Unknown [id number] 2.16.840.1.742063.3.579.2.173 1971 Unknown [id number] 2.16.840.1.132677.3.579.2.173 1971 Unknown [id number] 2.16.840.1.674672.3.579.2.173 1971 Unknown [id number] 2.16.840.1.372738.3.579.2.173 1971 Unknown [id number] 2.16.840.1.801327.3.579.2.173 1971 Unknown [id number] 2.16.840.1.504642.3.579.2.647 1971 Unknown [id number] 2.16.840.1.751202.3.579.2.593 1971 Unknown [id number] 2.16.840.1.645501.3.579.2.593 1971 Unknown [id number] 2.16.840.1.964278.3.579.2.593 1971 Unknown [id number] 2.16.840.1.889809.3.579.2.593 1971 Unknown [id number] 2.16.840.1.609733.3.579.2.593 1971 Unknown [id number] 2.16.840.1.806513.3.579.2.593 1971 Unknown [id number] 2.16.840.1.491412.3.579.2.593 1971 Unknown [id number] 2.16.840.1.013341.3.579.2.593 1971 Unknown [id number] 2.16.840.1.055228.3.579.2.593 1971 Unknown [id number] 2.16.840.1.008817.3.579.2.593 1971 Unknown [id number] 2.16.840.1.097179.3.579.2.593 1971 Unknown [id number] 2.16.840.1.394508.3.579.2.593 1971 Unknown [id number] 2.16.840.1.056266.3.579.2.593 1971 Unknown [id number] 2.16.840.1.925803.3.579.2.593 1971 Unknown [id number] 2.16.840.1.494098.3.579.2.593 1971 Unknown [id number] 2.16.840.1.441070.3.579.2.125 9 1971 Unknown [id number] 2.16.840.1.811031.3.579.2.125 9 1971 Unknown [id number] 2.16.840.1.967024.3.579.2.125 9 1971 Unknown [id number] 2.16.840.1.546528.3.579.2.125 9 1971 Unknown [id number] 2.16.840.1.705737.3.579.2.125 9 1971 Unknown [id number] 2.16.840.1.828313.3.579.2.125 9 1971 Unknown [id number] 2.16.840.1.812014.3.579.2.125 9 1971 Unknown [id number] 2.16.840.1.875571.3.579.2.125 9 1971 Unknown [id number] 2.16.840.1.008269.3.579.2.125 9 1971 Unknown [id number] 2.16.840.1.768408.3.579.2.125 9 1971 Unknown [id number] 2.16.840.1.493067.3.579.2.125 9 1971 Unknown [id number] 2.16.840.1.571808.3.579.2.125 9 1971 Unknown [id number] 2.16.840.1.285059.3.579.2.125 9 1971 Unknown [id number] 2.16.840.1.230202.3.579.2.594 1971 Unknown [id number] 2.16840.1.182107.3.579.2.594 1971 Unknown [id number] 2.16.840.1.416243.3.579.2.594 1971 Unknown [id number] 2.16840.1.536233.3.579.2.594 1971 Unknown [id number] 2.840.1.871506.3.579.2.594 1971 Unknown [id number] 2.840.1.482174.3.579.2.594 1971 Unknown [id number] 2.16840.1.556669.3.579.2.594 1971 Unknown [id number] 2.16840.1.456028.3.579.2.594 1971 Unknown [id number] 2.840.1.612946.3.579.2.594 1971 Unknown [id number] 2.840.1.920569.3.579.2.594 1971 Unknown [id number] 2.840.1.176641.3.579.2.594 1971 Unknown [id number] 2.840.1.073806.3.579.2.594 1959 Medicaid [id number] 1959 Medicare [id number] Social History Date Type Detail Facility Start: 07-19-2018 End: 10-19-2018 Tobacco smoking status [facility] Former smoker [facility] Start: 07-19-1988 End: 05-14-2018 History of tobacco use Current smoker [facility] Work Phone: Start: 07-19-1988 End: 05-14-2018 History of tobacco use Cigarette Smoker [facility] Work Phone: Start: 10-19-2018 End: 03-24-2024 Cigarettes smoked current (pack per day) - Reported [facility] End: 07-19-1994 History of tobacco use Chews Tobacco [facility] Work Phone: Start: 1971 Sex Assigned At Not on file [facility] Work Phone: Start: 11-03-2018 Alcohol intake Current non-drinker of alcohol (finding) [place] Start: 06-22-2018 Alcohol Comment Hx of alcoholism [place] Start: 11-03-2018 End: 03-24-2024 Alcohol intake No [facility] Start: 07-19-2018 Tobacco use and exposure Former user [facility] Start: 09-06-2020 End: 03-24-2024 Alcohol intake Ex-drinker (finding) [facility] Start: 07-19-2018 Alcohol Comment stopped 05/14/2018 [facility] Start: 05-05-2022 End: 01-16-2023 Exposure to SARS-CoV-2 (event) Not sure [facility] Start: 07-07-2018 Gender identity Identifies as male gender (finding) [facility] Start: 01-16-2022 Sexual orientation Heterosexual (finding) [facility] Start: 11-03-2023 Tobacco use and [...] Dates [id number] Start: 05-23-2020 [id number] Start: 04-12-2020 [id number] [phone], [id number] [facility] Start: 05-17-2022 Comment on above: Description: Implant time-out completed by intra-procedural staff including this RN, hemodialysis lab technician, and performing physician. The following was completed. RN reads out loud implant type/size/ expiration date, and verbalizes location. Holds package up to tech to visually verify implant details. Tech reads back package details MD verifies verbally correct implant Time-out was completed for each coil during embolization, if applicable. Goals Date Patient Goal Desired Activity /State Personal health goal Clinical Notes 06-14-2021 to 03-24-2024 [facility] [place] [facility] 4:12 PM Angie Rajput - 03/24/2024 4:12 PM EDTRmonster [place] [facility] 4:12 PM EDTAttachments Note Date & Type Note Facility 03-24-2024 History of Present illness Narrative [facility]REACH [facility]: Call Information: Date and Time of Contact: 03/24/2024 4:14 PM Method of Contact: By Phone Contact Type: Prescriptions Contactor: [facility] Contactee: Patient Contact Outcome: Left message Shipping/Pickup: Medication Name: Prograf 0.2mg pack Contact Info: Specialty ([place]) [phone] Jakob [phone] [facility] [phone] Raheem [phone] Bedside Delivery ([facility]) [phone] [facility] OUTREACH ADVANCED: Call Information: Date and Time of Contact: 03/28/2024 3:58 PM Method of Contact: By Phone Contact Type: Prescriptions Contactor: [facility] Contactee: Patient Contact Outcome: Left message and Call back later Shipping/Pickup: Medication Name: Mycophenolate, prograf Contact Info: Specialty ([place]) [phone] Jakob [phone] [facility] [phone] Raheem [phone] Bedside Delivery ([facility]) [phone] [facility] RX OUTREACH ADVANCED: Call Information: Method of Contact: By Phone Contact Type: Prescriptions Contactor: Patient Contactee: [facility] Shipping/Pickup: Medicare B Refill?: No Medication Name: Mycopheolate 360mg and Prograf Delivery Method: Ship Delivery Location: Home Signature Required: No Receive/Pickup Date: 04/04/2024 Shipping Address: [address] [place] [address] Contact Info: Specialty (Yanci) [phone] Jakob [phone] [facility] [phone] Raheem [phone] Bedside Delivery ([facility]) [phone] documented in this encounter [facility] 03-24-2024 History of Present illness Narrative [facility] OUTREACH ADVANCED: Call Information: Date and Time of Contact: 03/24/2024 4:14 PM Method of Contact: By Phone Contact Type: Prescriptions Contactor: [facility] Contactee: Patient Contact Outcome: Left message Shipping/Pickup: Medication Name: Prograf 0.2mg pack Contact Info: Specialty ([place]) [phone] [facility] [phone] [facility] [phone] Raheem [phone] Bedside Delivery ([facility]) [phone] [facility] OUTREACH ADVANCED: Call Information: Date and Time of Contact: 03/28/2024 3:58 PM Method of Contact: By Phone Contact Type: Prescriptions Contactor: [facility] Contactee: Patient Contact Outcome: Left message and Call back later Shipping/Pickup: Medication Name: Mycophenolate, prograf Contact Info: Specialty ([place]) [phone] [facility] [phone] [facility] [phone] Raheem [phone] Bedside Delivery ([facility]) [phone] [facility] RX OUTREACH ADVANCED: Call Information: Method of Contact: By Phone Contact Type: Prescriptions Contactor: Patient Contactee: [facility] Shipping/Pickup: Medicare B Refill?: No Medication Name: Mycopheolate 360mg and Prograf Delivery Method: Ship Delivery Location: Home Signature Required: No Receive/Pickup Date: 04/04/2024 Shipping Address: [address] [place] [address] [address] Contact Info: Specialty ([place]) [phone] [facility] [phone] [facility] [phone] Raheem [phone] Bedside Delivery ([facility]) [phone] [facility] OUTREACH ADVANCED: Pre-Verification/Specialty Assessment/Disease Mgt: Medication(s) Name: Tacrolimus and mycophenolate Lab Review: CBC w/diff, Drug level, Chem 6 (with GFR) and Hepatic function panel Assessment type (Select either Initial or Re-Assessment): Re-Assessment Specialty Assessment Review: Name, Age, Sex Demographics Therapeutic Goals Pertinent Medical History Adverse Effects with Enrolled (and related) Medications Recent Labs Medications (dose, route, frequency, and interactions) Allergies Patient Comprehension Appropriate Use Adherence Specialty Medication Management Financial Resources Health Problems/Diagnoses Care Plan Activities Completed: Updated Assessment Findings: Patient is 54 year old male who is 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 Current IS meds: Prograf 0.2mg on Tuesdays and Fridays Mycophenolate 360mg BID Anti-infectives: PJP Prophylaxis: Bactrim Most recent labs: 03/28/24 Most recent transplant appointment:08/28/23 Next scheduled transplant appointment:06/17/24 Admitted 01/16-01/23/24 for acute hypoxic respiratory failure secondary to CHF. Per chart notes from admission: He was found to have high cardiac output due to high flows from his AVF. Patient underwent fistula ligation on 01/22/2024 and tolerated procedure well. His symptoms improved with diuresis, and he was determined to be medically stable for discharge on 01/23/2024. No adherence, safety, or efficacy issues identified. Monitoring Parameter Review: Within normal limits Contact Info: Specialty ([place]) [phone] Jakob [phone] [facility] [phone] Raheem [phone] Bedside Delivery ([facility]) [phone] documented in this encounter [facility] 03-02-2024 History of Present illness Narrative [facility] [...] del of broth Contact Info: Specialty ([place]) [phone] Jakob [phone] [facility] [phone] Raheem [phone] Bedside Delivery ([facility]) [phone] [facility] RX OUTREACH ADVANCED: Call Information: Date and Time of Contact: 03/02/2024 3:49 PM Method of Contact: By Phone Contact Type: Prescriptions Contactor: [facility] Contactee: Patient Contact Outcome: Left message and Follow-up Shipping/Pickup: Medication Name: Myco 360mg and Prograf 0.2mg Contact Info: Specialty ([place]) [phone] [facility] [phone] [facility] [phone] Raheem [phone] Bedside Delivery ([facility]) [phone] [facility] OUTREACH ADVANCED: Call Information: Date and Time of Contact: 03/02/2024 4:08 PM Method of Contact: By Phone Contact Type: Prescriptions Contactor: [facility] Contactee: Patient Shipping/Pickup: Medicare B Refill?: No Medication Name: Myco 360 / prograf 0.2 Delivery Method: Ship Delivery Location: Home Signature Required: No Receive/Pickup Date: 03/03/2024 Shipping Address: [address] [place] [address] Contact Info: Specialty ([place]) [phone] [facility] [phone] [facility] [phone] Raheem [phone] Bedside Delivery ([facility]) [phone] documented in this encounter [facility] 02-26-2024 History of Present illness Narrative [...] presents to the HF Clinic at the [facility] on 02/26/2024 for initial evaluation of [...] Left; Surgeon: Jyoti Bryant MD, PhD; Location: [facility] MAIN OR PLACEMENT NEPHROSTOMY CATHETER PERCUTANEOUS W/ IMAGE GUIDANCE 05/17/2022 Surgeon: Enzo Heart DO; Location: [facility] INTERVENTIONAL RADIOLOGY (VIR) LIVER TRANSPLANT, ORTHOTOPIC N/A 04/12/2020 Laterality: N/A; Surgeon: LU Palma; Location: [facility] SAME DAY SURGERY MAIN OR KIDNEY TRANSPLANT W/O [place] NEPHRECTOMY N/A 04/12/2020 Laterality: N/A; Surgeon: LU Palma; Location: [facility] SAME DAY SURGERY MAIN OR OTHER [...] qd Antithrombotic: no Statin: no ICD: NA BEAD FLIPPER: NA CV Test results: ECHOCARDIOGRAM 01/18/2024 (Final) Interpretation Summary Left Ventricle: Chamber size is normal. Increased wall thickness. Concentric hypertrophy. Normal global systolic function. Regional wall motion is normal. Ejection fraction is normal (55 - 60%). Right Ventricle: Chamber size is normal. Systolic function is low normal. No hemodynamically significnat valve disease. Moderate pericardial effusion. There is no evidence of tamponade. RHC (01/20/24) Hemodynamic Summary: Baseline Hemodynamics Systemic BP [...] will be BP control. Candie Almaguer M.D. associate professor of sociology Advanced Heart Failure Program Division of Cardiovascular Medicine [facility] [email or web address] [phone] fax [phone] documented in this encounter [facility] 02-26-2024 Instructions Marsha Mckeon RN - 02/26/2024 9:30 AM EDT The following instructions were given today: Labs today Follow up with Dr. Almaguer as needed. Your after visit summary (AVS) is viewable in [facility] My [facility]. Call RN if you have cardiac questions/concerns M-F 8 to 4:30 ; office # [phone], option 6, then option 2. Guidelines for home management: 1. Continue to monitor weight first thing each morning. 2. Report to the CHF CLINIC ([phone]) any significant weight change. Remember that weight [...] to have labs/tests run outside of the [facility] and you do not hear from us 1-2 days after they are performed, you must call us to ensure we received the results. Office fax # [phone]. No news does not necessarily mean that your tests are normal, it could mean we did not get the results. For questions/updates: please provide your name with spelling, date of and question or update All calls are prioritized and responses researched, if possible, prior to calls being returned. Call Scheduling for any appointment/procedure verification or changes [phone], option 7 or [facility] Heart Schedulers at [phone], option 1. documented in this encounter [facility] 01-23-2024 Nurse Note Jakob wrap & [...] [facility] as listed on discharge summary. Patient denies any unanswered questions at this time. Patient has been discharged with all of their belongings, transported via wheelchair on oxygen to front entrance for brother to transport home on home oxygen supply. [facility] 01-23-2024 Miscellaneous Notes Jakob wrap & [...] understanding on picking up needed prescriptions at [facility] as listed on discharge summary. Patient [...] Pain): verbalization of pain descriptors George Styles ([id number]) PRE OPERATIVE DIAGNOSIS High output congestive heart failure [I50.83] POST OPERATIVE DIAGNOSIS Post-Op Diagnosis Codes: * High output congestive heart failure [I50.83] PROCEDURE PERFORMED Procedure(s) (LRB): LIGATION ANGIOACCESS AVF (Left) Resection of large aneurysmic vein PRIMARY CLOSURE Yes INTRAOPERATIVE FINDINGS No significant abnormalities SURGEON Surgeons and Role: * Jyoti Bryant MD, PhD - Primary ANESTHESIOLOGIST Anesthesiologist: Celena Tiwari MD; Kehinde Gutierrez MD LEGAL INVESTIGATOR: Raheem Jasso APRN-LEGAL INVESTIGATOR Gas Controller Assisting: Mini Khan MD SURGICAL STAFF Etcher Apprentice: Zoila Lawrence RN Relief Etcher Apprentice: Marimar Saravia RN Relief Scrub: Briseyda Self [...] patient breathing easily. Report received from surgical coder and report received from anesthesiology. Pt arrived [...] Axillary block. SURGEON(S): Jyoti Bryant MD, PHD MEDICAL DIRECTOR/HEAD TEAM PHYSICIAN: Mynor Fall MD ESTIMATED BLOOD LOSS: Minimal. [...] Jyoti Bryant MD, PHD ATTENDING SHANNON/Constanza JOB: [id number] DOC: [id number] Patient has been asleep this shift. He [...] overnight coverage, Jasper Gastelum MD, via pager #[phone] Pt- George Styles. Smith 1082. TM1. Was wondering if he can have his Melatonin order increased to 6mg. Per pt, he usually takes 8mg at home. -SAMI Duffy #[phone] Tati Charles RN Internal Medicine Daily Progress Note Patient: George Styles, 1970, [id number] Physician: Arelis Mera MD, PGY3, Pager #[phone], TM1 service Assessment/Plan: George Styles is a [...] amlodipine 5mg CAD: non-obstructive CAD on LHC 2019. - continue home aspirin 81mg daily, [...] Mera MD Mr. Styles was admitted to [address] [place] [address]. On admission to [facility], from outside facility a dual RN initial assessment of skin condition was performed by Izzy Gutierrez RN and Leroy Singleton RN. Skin Assessment: Skin within defined limits:Yes Jose Score: 20 [employer] Sergeant images obtained: No LDA Added: No Based [...] when available. documented in this encounter [facility] 01-23-2024 Nurse Note Home Oxygen Qualification Patient: [...] at 4L of oxygen is also required.) [facility] 01-23-2024 History of Present illness [...] mg Oral Daily Kelvin Pacheco MD, LU environmental studies professor Transplant nephrology Surgery Post-Op Check Note [...] monitor Leonel Harris DO General Surgery Pager [phone] CM went to bedside to talk with patient. Patient states he has home oxygen through [employer]. He uses 2.5 LNC around the clock. Patient states his brother will bring a tank for discharge. Anticipate patient will discharge tomorrow AM. Brother updated. Girish Oro RN, BSN Clinical Cook Seafood Please note that I am a float watch caser and may not cover the same service every day. Please call the main Case Management office at [phone] for up-to-date coverage. Verified patients identity using [...] Daily Progress Note Patient: George Styles, 1970, [id number] Physician: Yury Ozuan MD, PGY1, Pager #[phone], VR0 service Assessment/Plan: George Styles is a 53 [...] by transplant surgery on 01/22 (NPO at pr, updated type & screen) S/p Liver-Kidney Transplant [...] home amlodipine 5mg CAD: non-obstructive CAD on [facility] 2018. - continue home aspirin 81mg [...] with the Nutrition plan outlined in the Shorer s note. DVT prophylaxis with lovenox Diet [...] LUE AVF: Associated attestation - Kelvin Pacheco K, MD, LU - 01/21/2024 4:20 PM EST Patient seen and examined at bedside today during multidisciplinary rounds with medicine residents and pharmacy, charts reviewed, laboratory parameters reviewed. Agree with plan of care as mentioned in resident note. Kelvin Pacheco MD, LU environmental studies professor Transplant nephrology Patient seen and examined [...] Oral BID AC Kelvin Pacheco MD, LU environmental studies professor Transplant nephrology Images from the original note were not included. Internal Medicine Daily Progress Note Patient: George Styles, 1970, [id number] Physician: Yury Ozuna MD, PGY1, Pager #[phone], IJ6 service Assessment/Plan: George Styles is a 53 [...] home amlodipine 5mg CAD: non-obstructive CAD on [facility] 2018. - continue home aspirin 81mg [...] with the Nutrition plan outlined in the Shorer s note. DVT prophylaxis with lovenox Diet [...] Ptt/Pt/Inr: 30.6/15.5/1.2 (01/20 611) Doppler US AMIE AVF: Associated attestation - [...] Provider: Zuly Bruno NP Pharmacy: [facility] [place] Other Comments: Patient reported his Last Home Dose of mycophenolate and tacrolimus was on 01/15/24 at 0700. Medications that need removed from Outside Medication Reconciliation list: Please remove all medications. Please feel free to contact me with any further questions. Name: Heidy Chatman Phone #: [phone] Date/Time: 01/19/2024 12:08 PM Time Spent: 15 minutes Associated attestation - Fidelina Alarcon [facility] - 01/19/2024 12:41 PM EST Department of Pharmacy Admission Medication Reconciliation Note Patient: George Styles Room/Bed: 1082/A I have reviewed the home medication list with the Flaking Roll Operator. The home medication list status is: complete. All changes to the home medication list have been updated in [facility]. Updated OFFICE RUNNER Med List: Prior to Admission Medications Prescriptions [...] with any further questions. Name: Fidelina Alarcon [facility] Phone #: [phone] Date/Time: 01/19/2024 12:41 PM Internal Medicine Daily Progress Note Patient: George Styles, 1970, [id number] Physician: Yury Ozuna MD, PGY1, Pager #[phone], EG8 service Assessment/Plan: Acute Hypoxic Respiratory Insufficiency GARCIA, [...] home amlodipine 5mg CAD: non-obstructive CAD on [facility] 2018. - continue home aspirin 81mg [...] with the Nutrition plan outlined in the Shorer s note. DVT prophylaxis with lovenox Diet [...] mg Oral Daily Kelvin Pacheco MD, MBBS environmental studies professor Transplant nephrology Internal Medicine Daily Progress Note Patient: George Styles, 1970, [id number] Physician: Yury Ozuna MD, PGY1, Pager #[phone], TM1 service Assessment/Plan: Updates: - continued diuresis [...] home amlodipine 5mg CAD: non-obstructive CAD on [facility] 2018. - continue home aspirin 81mg [...] with the Nutrition plan outlined in the Shorer s note. DVT prophylaxis with lovenox Diet [...] mentioned in resident note. Kelvin Pacheco MD, UL environmental studies professor Transplant nephrology Pt known to charging manipulator from previous admissions. Provided emotional and spiritual support. Patient shared about: family support, medical course Key Account Director provided: - Supportive presence - Active listening - Validation of feelings/emotions Patient encouraged to request a charging manipulator as needed. Chaplains are available in-house 24 hours a day and 7 days a week. For urgent matters in [facility], please page [phone]. If the request is not urgent, please enter a consult. Consults are responded to within 24 hours. Senior Staff Key Account Director Angie Singh Mdiv, [facility] [phone] [email or web address] On-call : lens silverer Raheem: 22/06 Pager ,[facility], and Brock Hernandez Pager [phone] 01/18/24 1342 Clinical Encounter Type Visited With Patient Visit Type Introduction Pastoral Time Spent 15 min Referral Other (See Comment) (rounding) Spiritual Assessment Emotional Observation Coping well;Anxiety Hope Observation Specific hope focus Support Observation By Family Interventions Provided Active listening;Supportive presence Facilitated Verbalization of feelings;Identifying support system;Identifying Sources of spiritual well-being Explored Expectations;Treatment decisions Technical Agronomist Education Technical Agronomist Service Available Yes Educated Patient Outcomes Patient [...] interaction. Name: Fidelina Alarcon RPH Phone #: [phone] Date/Time: 01/18/2024 9:56 AM Discharge Planning Patient [...] Yes Name and Contact information: Gian Styles ([phone]) Would you like to add additional adult [...] Is the patient from a facility or retirement?: No Patient lives with: Alone Living Environment: [...] oxygen?: Yes Oxygen Provider and Contact : [employer] Liter-Flow?: Order for oxygen use?: unknown at [...] the patient on Anticoagulation? : No [id number] [place] [address] - [address] [place] [address] [address] [facility] [address] Distribution Center Associate Does the patient or area representative express financial concerns? : No Employed?: Disabled Coping/Stress Concerns about patient s coping and stress?: No Concerns about patient s caregiver s coping and stress?: No Values and Beliefs Cultural or bahai practices that may impact discharge planning and/or [...] Plan 1. Identified self and role as Cook Seafood. 2. Confirmed and updated demographics and treatment team. 3. Cook Seafood will continue to follow with medical team for any other additional discharge needs. Kasandra DON RN [facility] [phone] *Please note I am float CM and work Thursday and Thursday every other week. Please call [phone] for assist in my absence. Internal Medicine Daily Progress Note Patient: George Styles, 1970, [id number] Physician: Yury Ozuna MD, PGY1, Pager #[phone], TM3 service Assessment/Plan: Updates: - continue diuresis [...] home amlodipine 5mg CAD: non-obstructive CAD on [facility] 2018. - continue home aspirin 81mg [...] ordered 2D echo. Kevin Prince MD, FASN Shore Worker of Clinical Medicine [facility] documented in this encounter [facility] 01-23-2024 Plan of care note [...] Symptoms (Acute Pain): verbalization of pain descriptors [facility] 01-22-2024 Hospital Discharge instructions Arelis [...] your doctor for further instructions. Please call [phone], Option 1 or [phone] to schedule your appointment with the Heart Failure Clinic. Arelis Mera MD - 01/22/2024 3:08 PM EST You can change your dressing 48 hours from the procedure The following attachments cannot be sent through Care Everywhere.Heart Failure: Avoiding Triggers (Finnish)Heart Failure: Limiting Sodium (Finnish)Pain and Pain Control ([facility]) (Finnish)documented in this encounter [facility] 01-22-2024 Surgery Postoperative evaluation and management note George Styles ([id number]) PRE OPERATIVE DIAGNOSIS High output congestive heart failure [I50.83] POST OPERATIVE DIAGNOSIS Post-Op Diagnosis Codes: * High output congestive heart failure [I50.83] PROCEDURE PERFORMED Procedure(s) (LRB): LIGATION ANGIOACCESS AVF (Left) Resection of large aneurysmic vein PRIMARY CLOSURE Yes INTRAOPERATIVE FINDINGS No significant abnormalities SURGEON Surgeons and Role: * Jyoti Bryant MD, PhD - Primary ANESTHESIOLOGIST Anesthesiologist: Celena Tiwari MD; Kehinde Gutierrez MD LEGAL INVESTIGATOR: Raheem Jasso APRN-HUGO Gas Controller Assisting: Mini Khan MD SURGICAL STAFF Etcher Apprentice: Zoila Lawrence RN Relief Etcher Apprentice: Marimar Saravia RN Relief Scrub: Briseyda Self Scrub Person: Cinda Mia RN Resident Assisting: Leonel Harris DO Fellow: Miki Mcgowan MD, MBBS COMPLICATIONS None ESTIMATED BLOOD LOSS Minimal SPECIMENS No specimen sent * No specimens in log * Jyoti Bryant MD, PhD January 22, 2024 1:34 PM [facility] Work Phone: 01-22-2024 Nurse Note Arrived to PACU assisted by anesthesiology. Connected to monitors. Turned side to side, OR linens removed, repositioned. Airway patent, patient breathing easily. Report received from surgical coder and report received from anesthesiology. Pt arrived awake. VSS. Sats slightly low. Pulm rehab used. Sats currently 3lpm @ 93%. Pt states he uses CPAP nocturnally. A&Ox4. Nerve block left arm, elevated. [facility] 01-22-2024 Surgery Postoperative evaluation and management [...] Axillary block. SURGEON(S): Jyoti Bryant MD, PHD MEDICAL DIRECTOR/HEAD TEAM PHYSICIAN: Mynor Fall MD ESTIMATED BLOOD LOSS: Minimal. [...] Jyoti Bryant MD, PHD ATTENDING SHANNON/Constanza JOB: [id number] DOC: [id number] [facility] 01-22-2024 Plan of care note Patient [...] 1939 Plan Of Care Reviewed With: [facility] [facility] 01-20-2024 Consult note Associated Order (s): IP CONSULT TO SURGERY - TRANSPLANT (RENAL) Images from the original note were not included. TRANSPLANT SURGERY CONSULT NOTE: Consult: 01/20/2024, 4:03 PM Zigzag Appliquer: Starla Morris MD Reason for Consult: Requesting Dr Carson Bryant for AVF revision/closure given new onset high output heart failure George Styles is a 53 y.o. male CURRENT HOSPITALIZATION LOS: Admit Date: 01/16/2024 [facility] Hospital LOS: 4 days George [...] DAY SURGERY MAIN OR KIDNEY TRANSPLANT W/O [place] NEPHRECTOMY N/A 04/12/2020 Laterality: N/A; Surgeon: LU [...] 0.4 mg 0.4 mg Oral Daily Timothy Joesph MD 0.4 mg at 01/20/24 0918 Torsemide [...] seen and staffed with Dr. Mcgowan fellow tenant relations coordinator Thank you, Starla Morris MD Associated attestation - Jyoti Bryant MD, PhD - 01/22/2024 10:54 AM EST I. Jyoti Bryant MD, PhD, have independently seen and examined the patient, reviewed the labs, discussed the patient with the fellow/resident and agree with the note. [facility] Work Phone: 01-20-2024 Consult note Associated Order (s): IP CONSULT TO SURGERY - TRANSPLANT (RENAL) Images from the original note were not included. TRANSPLANT SURGERY CONSULT NOTE: Consult: 01/20/2024, 4:03 PM Zigzag Appliquer: Starla Morris MD Reason for Consult: Requesting Dr Carson Bryant for AVF revision/closure given new onset high output heart failure George Styles is a 53 y.o. male CURRENT HOSPITALIZATION LOS: Admit Date: 01/16/2024 [facility] Hospital LOS: 4 days George [...] 05/17/2022 Surgeon: Enzo Heart DO; Location: [facility] INTERVENTIONAL RADIOLOGY (VIR) LIVER TRANSPLANT, ORTHOTOPIC N/A 04/12/2020 Laterality: N/A; Surgeon: LU Palma; Location: [facility] SAME DAY SURGERY MAIN OR KIDNEY TRANSPLANT W/O [place] NEPHRECTOMY N/A 04/12/2020 Laterality: N/A; Surgeon: LU Palma; Location: [facility] SAME DAY SURGERY MAIN OR OTHER [...] 17 g 17 g Oral Daily PRN Timtohy Joseph MD Prochlorperazine (COMPAZINE) injection 10 mg [...] seen and staffed with Dr. Mcgowan fellow tenant relations coordinator Thank you, Starla Morris MD Associated attestation [...] 05/17/2022 Surgeon: Enzo Heart DO; Location: [facility] INTERVENTIONAL RADIOLOGY (VIR) LIVER TRANSPLANT, ORTHOTOPIC N/A 04/12/2020 Laterality: N/A; Surgeon: LU Palma; Location: [facility] SAME DAY SURGERY MAIN OR KIDNEY TRANSPLANT W/O [place] NEPHRECTOMY N/A 04/12/2020 Laterality: N/A; Surgeon: LU Palma; Location: [facility] SAME DAY SURGERY MAIN OR OTHER [...] (order for outpatient) Please SecureChat or Call ([phone]) for any questions. Await attending attestation for final recommendations. Hank Noel MD Division of Gastroenterology, Hepatology, and Nutrition Clinical Fellow, PGY-5 Pager: [phone] For urgent/stat calls or consults 5pm to 7am, please page the on-call GI fellow on QGenda. [facility]--> Internal Medicine--> Gastroenterology, Hepatology, & Nutrition--> 1st Call Fel Alysia For urgent/stat calls or consults 7am to 5pm during the weekend, please page the on-call GI fellow on QGenda. [facility]--> Internal Medicine--> Gastroenterology, Hepatology, & Nutrition--> All Hep & East Wknd Cons Fel Day For follow up questions regarding this patient 7am to 5pm during the weekday, contact the Hepatology consults fellow or CARLOS A on QGenda. [facility]--> Internal Medicine--> Gastroenterology, Hepatology, & Nutrition--> [...] Estrada MD, MSc documented in this encounter [facility] 01-19-2024 Nurse Note 01/19/24 0900 [...] rest, 95-96% when talking/moving. Paulette Cordon RN [facility] 01-19-2024 Nurse Note Paged overnight coverage, Jasper Gastelum MD, via pager #[phone] Pt- George Styles. Sarah [phone]. TM1. Was wondering if he can have his Melatonin order increased to 6mg. Per pt, he usually takes 8mg at home. -SAMI Duffy #[phone] Tati Charles RN [facility] 01-18-2024 Consult note Associated Order (s): IP CONSULT TO HEPATOBILIARY GHN [facility] Main Hepatology Consult WebExchange --> IM [...] DAY SURGERY MAIN OR KIDNEY TRANSPLANT W/O [place] NEPHRECTOMY N/A 04/12/2020 Laterality: N/A; Surgeon: LU [...] (order for outpatient) Please SecureChat or Call ([phone]) for any questions. Await attending attestation for final recommendations. Hank Noel MD Division of Gastroenterology, Hepatology, and Nutrition Clinical Fellow, PGY-5 Pager: [phone] For urgent/stat calls or consults 5pm to 7am, please page the on-call GI fellow on QGenda. [facility]--> Internal Medicine--> Gastroenterology, Hepatology, & Nutrition--> 1st Call Janae Hatfield For urgent/stat calls or consults 7am to 5pm during the weekend, please page the on-call GI fellow on QGenda. [facility]--> Internal Medicine--> Gastroenterology, Hepatology, & Nutrition--> All Hep & East Wknd Cons Fel Day For follow up questions regarding this patient 7am to 5pm during the weekday, contact the Hepatology consults fellow or CARLOS A on Metaversuma. [facility]--> Internal Medicine--> Gastroenterology, Hepatology, & Nutrition--> [...] (order for outpatient) Michael Estrada MD, MSc [facility] Work Phone: 01-16-2024 Plan of care note Internal Medicine Daily Progress Note Patient: George Styles, 1970, [id number] Physician: Arelis Mera MD, PGY3, Pager #[phone], TM1 service Assessment/Plan: George Styles is a [...] home amlodipine 5mg CAD: non-obstructive CAD on [facility] 2018. - continue home aspirin 81mg [...] MD, on rounds. Signed, Arelis Mera MD [facility] 01-16-2024 Nurse Note Mr. Styles was admitted to [address] [place] [address]. On admission to [facility], from outside facility a dual RN initial assessment of skin condition was performed by Izzy Gutierrez RN and Leroy Singleton RN. Skin Assessment: Skin within defined limits:Yes Jose Score: 20 Wound [employer] Police Sergeant images obtained: No LDA Added: No Based [...] room closest to nurses station when available. [facility] 01-16-2024 History and physical note Images from the original note were not included. Internal Medicine Admission History & Physical Patient: George Styles, 1970, [id number] Physician: Timothy Joseph MD, PGY1, Pager #[phone], TM 1 service Date of face to [...] 05/17/2022 Surgeon: Enzo Heart DO; Location: [facility] INTERVENTIONAL RADIOLOGY (VIR) LIVER TRANSPLANT, ORTHOTOPIC N/A 04/12/2020 Laterality: N/A; Surgeon: LU Palma; Location: [facility] SAME DAY SURGERY MAIN OR KIDNEY TRANSPLANT W/O [place] NEPHRECTOMY N/A 04/12/2020 Laterality: N/A; Surgeon: LU Palma; Location: [facility] SAME DAY SURGERY MAIN OR OTHER [...] itraconazole Fax results to: Dr. White - [phone] Transplant Neph - [phone] Gabapentin 400 MG capsule Sig: Take 1 [...] erythema: Skin: No jaundice or rash Neuro: cook pie 3-7, 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 Strength grossly [...] home amlodipine 5mg CAD: non-obstructive CAD on [facility] 2018. - continue home aspirin 81mg [...] Fidelina Pierson, Luisa Steven, Renee Rivera, Daisha aMx Blacksmith Helper: José Miguel Garnica All Txt: 04/13/2020 (Kidney), [...] results found for: CYCLOSPORIN , CYCLOSPORIN2 , [id number] , CYCLORAND No results found for: SIROLIMUS [...] request in chart. Kevin Prince MD Pager [phone] [facility] 01-16-2024 History and physical note Images from the original note were not included. Internal Medicine Admission History & Physical Patient: George Styles, 1970, [id number] Physician: Timothy Joseph MD, PGY1, Pager #[phone], TM 1 service Date of face to [...] 05/17/2022 Surgeon: Enzo Heart DO; Location: [facility] INTERVENTIONAL RADIOLOGY (VIR) LIVER TRANSPLANT, ORTHOTOPIC N/A 04/12/2020 Laterality: N/A; Surgeon: LU Palma; Location: [facility] SAME DAY SURGERY MAIN OR KIDNEY TRANSPLANT W/O [place] NEPHRECTOMY N/A 04/12/2020 Laterality: N/A; Surgeon: LU Palma; Location: [facility] SAME DAY SURGERY MAIN OR OTHER [...] itraconazole Fax results to: Dr. White - [phone] Transplant Neph - [phone] Gabapentin 400 MG capsule Sig: Take 1 [...] erythema: Skin: No jaundice or rash Neuro: cook pie 3-7, 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 Strength grossly [...] home amlodipine 5mg CAD: non-obstructive CAD on [facility] 2018. - continue home aspirin 81mg [...] Pierson, Luisa Steven, Renee Rivera, Daisha Max Blacksmith Helper: José Miguel Garnica All Txt: 04/13/2020 (Kidney), [...] results found for: CYCLOSPORIN , CYCLOSPORIN2 , [id number] , CYCLORAND No results found for: SIROLIMUS [...] request in chart. Kevin Prince MD Pager [phone] documented in this encounter [facility] 01-12-2024 History of Present illness Narrative [facility] [...] Name: Prograf 0.2 MG Contact Info: Specialty ([place]) [phone] [facility] [phone] [facility] [phone] [facility] [phone] Bedside Delivery ([facility]) [phone] [facility] RX OUTREACH ADVANCED: Call Information: Date and Time of Contact: 01/25/2024 10:23 AM Method of Contact: By Phone Contact Type: Prescriptions Contactor: [facility] Contactee: Patient Contact Outcome: Left message (prograf myco) Contact Info: Specialty ([place]) [phone] [facility] [phone] [facility] [phone] [facility] [phone] Bedside Delivery ([facility]) [phone] documented in this encounter [facility] 01-12-2024 History of Present illness [...] Prograf 0.2 MG Contact Info: Specialty ([place]) [phone] [facility] [phone] [place] [phone] [facility] [phone] Bedside Delivery ([facility]) [phone] [facility] RX OUTREACH ADVANCED: Call Information: Date and Time of Contact: 01/25/2024 10:23 AM Method of Contact: By Phone Contact Type: Prescriptions Contactor: [facility] Contactee: Patient Contact Outcome: Left message (prograf myco) Contact Info: Specialty ([place]) [phone] [facility] [phone] [facility] [phone] [facility] [phone] Bedside Delivery ([facility]) [phone] [facility] RX OUTREACH ADVANCED: Call Information: Date and Time of Contact: 01/27/2024 10:19 AM Method of Contact: By Phone Contact Type: Prescriptions Contactor: [facility] Contactee: Patient Contact Outcome: Left message (myco prograf) Contact Info: Specialty ([place]) [phone] [facility] [phone] [facility] [phone] [facility] [phone] Bedside Delivery ([facility]) [phone] documented in this encounter [facility] 01-12-2024 History of Present illness [...] Prograf 0.2 MG Contact Info: Specialty ([place]) [phone] [facility] [phone] [facility] [phone] [facility] [phone] Bedside Delivery ([facility]) [phone] [facility] RX OUTREACH ADVANCED: Call Information: Date and Time of Contact: 01/25/2024 10:23 AM Method of Contact: By Phone Contact Type: Prescriptions Contactor: [facility] Contactee: Patient Contact Outcome: Left message (prograf myco) Contact Info: [place]ty ([place]) [phone] [facility] [phone] [facility] [phone] [facility] [phone] Bedside Delivery ([facility]) [phone] [facility] RX OUTREACH ADVANCED: Call Information: Date and Time of Contact: 01/27/2024 10:19 AM Method of Contact: By Phone Contact Type: Prescriptions Contactor: [facility] Contactee: Patient Contact Outcome: Left message (myco prograf) Contact Info: Specialty ([place]) [phone] [facility] [phone] [facility] [phone] [facility] [phone] Bedside Delivery ([facility]) [phone] [facility] RX OUTREACH ADVANCED: Call Information: Date and Time of Contact: 02/01/2024 3:22 PM Contact Type: Prescriptions Contactor: [facility] Contactee: Patient Contact Outcome: Left message Shipping/Pickup: Medication Name: Mycophenolate 360mg and Prograf 0.2mg Pack Contact Info: Specialty ([place]) [phone] [facility] [phone] [facility] [phone] [place] [phone] Bedside Delivery ([facility]) [phone] documented in this encounter [facility] 01-06-2024 History of Present illness Narrative Associated [...] The neurologist wanted to send him to [facility] neurology but it is out of [...] pt to see neurologist [facility] Immunocompromised ([facility]/HCC) Hypertension ([facility]) No change in meds Check echo Relevant Orders Echocardiogram 2D complete Bilateral lower extremity edema Relevant Orders Echocardiogram 2D complete Shortness of breath Check ECHO Relevant Orders Echocardiogram 2D complete Other Visit Diagnoses 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) Atherosclerosis 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) documented in this encounter [facility] 10-06-2023 History of Present illness Narrative [...] Prograf 0.2 MG Contact Info: Specialty ([place]) [phone] [facility] [phone] [facility] [phone] [facility] [phone] Bedside Delivery ([facility]) [phone] [facility] RX OUTREACH ADVANCED: Call Information: Date and Time of Contact: 10/23/2023 2:00 PM Method of Contact: By Phone Contact Type: Prescriptions Contactor: [facility] Contactee: Patient Contact Outcome: Left message and Call back later Shipping/Pickup: Medication Name: Mycophenolate 360mg and Prograf 0.2mg Contact Info: Specialty ([place]) [phone] [facility] [phone] [facility] [phone] [facility] [phone] Bedside Delivery ([facility]) [phone] documented in this encounter [facility] 09-11-2023 Miscellaneous Notes Pt discharged [...] the oxygen during the night. pt will hot die picker his oxygen from [employer] [facility], 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 This RN [...] Patient seen ambulating in the velazquez with WEIGHT LOSS SALES CONSULTANT. Patient was mildly short of breath on [...] & HR 114. Messaged Mainor Loomis, via [employer] secure chat, Temp 100.8. His tylenol order [...] O2 supplement overnight to 5 L, but 10/ CXR does not show any acute findings. [...] short period of time. 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 Episode of [...] Critical Care Medicine Message Mainor Loomis, via [employer] secure chat, Good evening, just an FYI, [...] short period of time. 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 This morning, [...] [address] Loera here also (block and case maker) Dr. Diaz aware of pt's increased oxygen [...] Medicine-Pediatrics, PGY-2 Mr. Styles was admitted to [address] [place] [address]. On admission to [facility], from home a [...] when available. documented in this encounter [facility] 09-11-2023 History of Present illness Narrative Provided follow-up emotional and spiritual support. Patient shared about rosemary of discharge and looking forward to seeing family Key Account Director provided: - Supportive presence - Active listening - Validation of feelings/emotions Patient encouraged to request a charging manipulator as needed. Chaplains are available in-house 24 hours a day and 7 days a week. For urgent matters in [facility], please page [phone]. If the request is not urgent, please enter a consult. Consults are responded to within 24 hours. Senior Staff Key Account Director Angie Singh Mdiv, [facility] Kirk [phone] [email or web address] 22/06 On-call Smilax: [phone] 22/06 Pager ,[facility], and Brock Hernandez Pager [phone] 09/11/23 1430 Clinical Encounter Type Visited With Patient Visit Type Follow-up Pastoral Time Spent 15 min Referral Other (See Comment) (rounding) Spiritual Assessment Spiritual Observation Spirituality helpful Emotional Observation Coping well Hope Observation Specific hope focus Support Observation By Family Interventions Provided Active listening;Supportive presence Facilitated Verbalization of feelings Explored Expectations Technical Agronomist Education Technical Agronomist Service Available Yes Educated Patient Plan of Care Continue Visiting PRN Images from the original note were not included. [facility] ([facility] Note: Non-Verbal Med Rec [facility] received the following discharge prescription(s): Total cost is $0. I have reviewed the Discharge Rx Reconciliation Report. The discharge prescription(s) will be delivered to the patient on 09/11/2023. Dimitrios Gurrola RPh,PharmD Specialty ([place]) [phone] [facility] [phone] [facility] Bedside Delivery [phone] [facility] [phone] [facility] Bedside Delivery [phone] [place] [phone] [facility] Bedside Delivery [phone] [place] [phone] [place] [phone] Internal Medicine Daily Progress Note Patient: George Styles, 1970, [id number] Physician: Evan Kelly MD, PGY-1, TM1 service Subjective/Interval History: Patient continues to require oxygen overnight for desaturations. With insurance limitations, only accepting agency to provide home oxygen backed out. After calling them to discuss, Lynn stated she would be willing to have patient drive to their facility to hot die picker supplies, however they close at 5pm. 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 His [place] kidney disease was noted to be presumed [...] BID CAD: non-obstructive CAD on [facility] 2018. - continue home aspirin 81mg [...] 5.05 (H) 11/19/2018 Kevin Prince MD, SERA [facility] Worker of Clinical Medicine [facility] Images from the original note were not included. Final Discharge Planning and Transportation Final Discharge Planning Discharge Disposition: Home Services at Discharge: Outpatient clinical services (ie: lab draws, transfusions, injectables) (Home Oxygen by [facility]) Selected Continued Care - Admitted Since 08/28/2023 Durable Medical Equipment Coordination complete. Service Provider Selected Services Address Phone Fax Patient Preferred [facility] Durable Medical Equipment [facility] [address] Internal Comment last updated by Lora Lawrence RN 09/10/2023 1334 Correct contact information: [facility] [employer] [address] [place] [address] waste machine operator- you do not need to call at discharge, I already notified the company. Addendum 1278 [facility] notified this CM they are out of patient's insurance area and will not be able to service this patient at time of discharge. Provider notified. Addendum 1820 Dr Kelly called [facility] spoke to Lynn and she said they are willing to accept patient if the patient would drive to the [place] office and hot die picker the supplies. Patient is willing to [...] Lora Colón RN, MSN, CCM, CMCN Clinical [employer]- [facility] Transplant #[phone] Department of Pharmacy Transplant Note Patient: George [...] dose adjustment Name: Matt Kramer RPh,PharmD Phone: [phone] Date/Time: 09/10/2023 11:33 AM This CM sent referral via [employer] for O2 concentrator to 4 agencies Start date today Timer set for 1330 [employer] [facility] [employer] Addendum 1332 One accepting company reserved in [employer] [address] [place] [address] Lora Colón RN, MSN, CCM, CMCN [employer]- [facility] Transplant #[phone] NUTRITION FOLLOW-UP Nutrition Plan of Care: 1. Continue current diet order. 2. No oral supplements warranted at this time. 3. Monitor for significant weight changes. Monitor GI, skin integrity. 4. Monitor and encourage po intakes with goal of average po being 75-100%. 5. coding tech to follow. ___ Met with patient today at bedside wearing mask. Current Diet Orders Procedures DIET REGULAR Standing Status: Standing Number of Occurrences: 1 Appetite: good Per doc flow sheet: Date Breakfast Lunch Dinner 09/08 -% 75% -% 09/07 100% 75% 100% 09/06 100% 100% 100% 09/05 100% 100% -% 10/6 -% -% -% [...] time. Will continue to monitor. RHIANNON [place]R Pager:[phone] Transplant Infectious Disease (Team 3) Progress Note [...] sign off. Please Epic message or page [phone] with questions. 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 His [place] kidney disease was noted to be presumed [...] BID CAD: non-obstructive CAD on [facility] 2018. - continue home aspirin 81mg [...] to follow. Please Epic message or page [phone] with questions. 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 His [place] kidney disease was noted to be presumed [...] BID CAD: non-obstructive CAD on [facility] 2018. - continue home aspirin 81mg daily, holding atorvastatin 20mg daily Gout: continue home allopurinol 200mg daily BPH: continue home flomax 0.4mg daily DVT PPX: SQH Code Status: Full Code Disposition: Pending clinical course. Anticipate eventual discharge home. Discussed with team and attending, Kevin Prince MD, on rounds. Signed, Laurel Serrano MD, PhD Internal Medicine Daily Progress Note Patient: George Styles, 1970, [id number] Physician: Evan Kelly MD, PGY-1, TM1 service [...] s/p combined Liver-kidney transplant on 04/13/20. His [place] kidney disease was noted to be presumed [...] BID CAD: non-obstructive CAD on [facility] 2018. - continue home aspirin 81mg [...] 5.05 (H) 11/19/2018 Kevin Prince MD, SERA Shore Worker of Clinical Medicine [facility] Transplant Infectious Disease [...] to follow. Please Epic message or page [phone] with questions. Ann Marie Haskins MD PGY-4, [...] he continues to improve. Please message via [employer] secure chat or page with any questions or concerns. Evan White DO Shore Worker Division of Infectious Disease Transplant Infectious Disease [...] to follow. Please Epic message or page [phone] with questions. Evan White DO Transplant Infectious Diseases Images from the original note were not included. Pulmonary/Critical Care Medicine Daily Progress Note Reason for Consultation: bronch for infectious workup Requesting Physician: Dr. Prince CURRENT HOSPITALIZATION: Admit Date: 08/28/2023 [facility] LOS: 9 days Impression 1. Acute [...] and interpreted reviewed the radiographic data in [employer]. Internal Medicine Daily Progress Note Patient: George Styles, 1970, [id number] Physician: Evan Kelly MD, PGY-1, TM1 service [...] s/p combined Liver-kidney transplant on 04/13/20. His [place] kidney disease was noted to be presumed [...] BID CAD: non-obstructive CAD on [facility] 2018. - continue home aspirin 81mg [...] 5.05 (H) 11/19/2018 Kevin Prince MD, MADISONN Shore Worker of Clinical Medicine [facility] Images from the original note were not included. Pulmonary/Critical Care Medicine Daily Progress Note Reason for Consultation: bronch for infectious workup Requesting Physician: Dr. Prince CURRENT HOSPITALIZATION: Admit Date: 08/28/2023 [facility] LOS: 8 days Impression [...] and interpreted reviewed the radiographic data in [facility]. Acute Occupational Therapy Evaluation Prior to Admission [...] Assessment: Transfer Assessment: Sit to Stand Transfer Bulloch Level: Sit->Stand: independent Skilled Intervention/Details: Sit->Stand: x1 from EOB, x1 from toilet Stand to Sit Transfer Bulloch Level: Stand->Sit: independent Skilled Intervention/Details: Stand->Sit: x1 to toilet, x1 to EOB Functional Mobility: Functional Mobility Bulloch Level: Functional Mobility/Gait: independent Ambulation Distance (Feet): 20 Skilled Intervention/Details - Functional Mobility/Gait: pt performed functional mobility to/from RR w/ no overt LOB Outcome Score(s): CURRENT -[facility] Daily Activity Inpatient Short Form Putting on/Taking Off Lower Body Clothin - A Little Assistance Bathin - A Little Assistance Toiletin - A Little Assistance Putting on/Taking Off Upper Body Clothin - No Assistance Groomin - No Assistance Eatin - No Assistance CURRENT -[facility] Activity Raw Score: 21 CURRENT -[facility] Activity Functional Limitation/Modifier: 32.79% Currently Impaired [...] Acute Physical Therapy Evaluation Prior to Admission [facility] score(s): PRIOR LEVEL AM-PAC Mobility [...] Intact Mobility Assessment: Supine to Sit Mobility Bulloch Level: Supine->Sit: modified independence Bed Features/Set-up: Supine->Sit: Head of bed elevated Sit to Supine Mobility Bulloch Level: Sit->Supine: not tested Balance: Sitting Balance [...] environment. Transfer Assessment: Sit to Stand Transfer Bulloch Level: Sit->Stand: independent Skilled Intervention/Details: Sit->Stand: From EOB x 2 without difficulty. Stand to Sit Transfer Bulloch Level: Stand->Sit: independent Assistive Device: Stand->Sit: armed chair Skilled Rationale: Verbal cues, Positioning Gait/Functional Mobility: Gait Assessment Bulloch Level: Gait: stand-by assist Assistive Device: Gait: rollator Ambulation Distance (Feet): 400 Gait Deviations Identified: decreased grace, decreased gait speed Gait Skilled Rationale: verbal, upright posture, increase step length, increase foot clearance Skilled Intervention/Details - Gait: Reasonable foot clearnce without loss of balance but endorsing dyspnea as 6-7/10. Stairs: Stairs Assessment Bulloch Level: Stair Negotiation: not tested Outcome Score(s): [...] a railin - A Little Assistance CURRENT -[facility] Mobility Raw Score: 21 CURRENT [facility] Mobility Functional Limitation/Modifier: 28.97% Currently Impaired [...] Daily Progress Note Patient: George Styles, 1970, [id number] Physician: Evan Kelly MD, PGY-1, TM1 service [...] s/p combined Liver-kidney transplant on 04/13/20. His [place] kidney disease was noted to be presumed [...] BID CAD: non-obstructive CAD on [facility] 2019. - continue home aspirin 81mg [...] 5.05 (H) 11/19/2018 Kevin Prince MD, SERA Shore Worker of Clinical Medicine [facility] Transplant Infectious Disease [...] to follow. Please Epic message or page [phone] with questions. Evan White DO Transplant Infectious Diseases Images from the original note were not included. Internal Medicine Daily Progress Note Patient: George Styles, 1970, [id number] Physician: Evan Kelly MD, PGY-1, TM1 service [...] s/p combined Liver-kidney transplant on 04/13/20. His [place] kidney disease was noted to be presumed [...] BID CAD: non-obstructive CAD on [facility] 2018. - continue home aspirin 81mg [...] P 450 system Kevin Prince MD, SERA Shore Worker of Clinical Medicine [facility] ERT Note: ERT [...] MD, PhD Internal Medicine and Pediatrics PGY-3 [facility] Brief plan of care update: Called [...] MD, PhD Internal Medicine and Pediatrics PGY-3 [facility] Transplant Infectious Disease (Team 3) Progress [...] to follow. Please Epic message or page [phone] with questions. Evan White DO Transplant Infectious Diseases Internal Medicine Daily Progress Note Patient: George Styles, 1970, [id number] Physician: Evan Kelly MD, PGY-1, TM1 service [...] s/p combined Liver-kidney transplant on 04/13/20. His [place] kidney disease was noted to be presumed [...] function CAD: non-obstructive CAD on [facility] 2018. - continue home aspirin 81mg [...] 5.05 (H) 11/19/2018 Kevin Prince MD, SERA Shore Worker of Clinical Medicine [facility] Internal Medicine Daily Progress Note Patient: George Styles, 1970, [id number] Physician: Evan Kelly MD, PGY-1, TM1 service [...] s/p combined Liver-kidney transplant on 04/13/20. His [place] kidney disease was noted to be presumed [...] function CAD: non-obstructive CAD on [facility] 2018. - continue home aspirin 81mg [...] 5.05 (H) 11/19/2018 Kevin Prince MD, MADISONN Shore Worker of Clinical Medicine [facility] Progression of Care [...] Lora Colón RN, MSN, CCM, CMCN Clinical Cook Seafood- R10 Transplant #[phone] Made introductory visit with patient. Provided emotional and spiritual support. Patient shared about: - Source of Rosemary: Camping/Fishing/Family - Spirituality/Synagogue Affiliation: raised Mormon - Family Support/history - Experience with illness/hospital course - Hopes for healing/future Key Account Director provided: - Supportive presence - Active listening - Validation of feelings/emotions - Pledged prayer Patient encouraged to request a charging manipulator as needed. Chaplains are available in-house 24 hours a day and 7 days a week. For urgent matters in [facility], please page [phone]. If the request is not urgent, please enter a consult. Consults are responded to within 24 hours. Senior Staff Key Account Director Angie Singh Mdiv, [facility] Smilax [phone] [email or web address] 22/06 On-call Kirk: [phone] 22/06 Pager ,[facility], and Brock Hernandez Pager [phone] 10/04/23 1117 Clinical Encounter Type Visited With Patient Visit Type Introduction Pastoral Time Spent 15 min Referral Other (See Comment) (rounding) Spiritual Assessment Spiritual Observation Spirituality helpful Emotional Observation Coping well Hope Observation Specific hope focus Support Observation By Family Interventions Provided Active listening;Supportive presence Facilitated Verbalization of feelings Explored Expectations Technical Agronomist Education Technical Agronomist Service Available Yes Educated Patient Outcomes Patient Outcomes Reduced distress Plan of Care Continue Visiting PRN NUTRITION RISK SCREENING NOTE Nutrition Plan of Care: 1. Continue current diet order. 2. No oral supplements warranted at this time. 3. Monitor for significant weight changes. Monitor GI and skin integrity. 4. Monitor and encourage po intakes with goal of average po being 100%. 5. coding tech to follow. George Styles is a 53 y.o. 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 His [place] kidney disease was noted to be presumed hepatorenal syndrome. His post-transplant course was noteworthy for nephrostomy tube (05/17/2022-09/10/2022) due to concern for ureteral stone. He presents as a direct admission for fever, cough, for infectious workup. Pt unavailable and information obtained via chart review Line Tender Flakeboard Screening Pt's appetite is good. Pt with [...] with meds Food Allergies reviewed:Shellfish Cultural or Synagogue Restrictions/Preferences: None GI: Last Bowel Movement: 09/01/23 [...] time. Will continue to monitor. RHIANNON [place]R Pager:[phone] Internal Medicine Daily Progress Note Patient: George Styles, 1970, [id number] Physician: Evan Kelly MD, PGY-1, TM1 service [...] s/p combined Liver-kidney transplant on 04/13/20. His [place] kidney disease was noted to be presumed [...] function CAD: non-obstructive CAD on [facility] 2018. - continue home aspirin 81mg [...] as outlined above. Kevin Prince MD Pager [phone] Summary: Pharmacy Med Rec Department of Pharmacy [...] Refills: 0 Provider: Zuly Bruno NP [facility] [place], [place] Other Comments: Patient reported his Last Home Dose of mycophenolate & tacrolimus was on 08/28/23 at 0900. Patient reported he was taking Bactrim and benzonatate for fevers and a cough he was having. Please feel free to contact me with any further questions. Name: Heidy Chatman Phone #: [phone] Date/Time: 09/01/2023 2:01 PM Time Spent: 15 minutes Associated attestation - Matt Kramer RPh,PharmD - 09/01/2023 2:28 PM EDT Department of Pharmacy Admission Medication Reconciliation Note Patient: George Styles Room/Bed: 1062/A I have reviewed the home medication list with the Flaking Roll Operator. All changes to the home medication list have been updated in IHIS. Updated OFFICE RUNNER Med List: Prior to Admission Medications Prescriptions [...] questions. Name: Matt Kramer RPh,PharmD Phone #: [phone] Date/Time: 09/01/2023 2:28 PM Transplant Infectious Disease [...] to follow. Please Epic message or page [phone] with questions. Evan White DO Transplant Infectious Diseases Internal Medicine Daily Progress Note Patient: George Styles, 1970, [id number] Physician: Evan Kelly MD, PGY-1, TM1 service [...] s/p combined Liver-kidney transplant on 04/13/20. His [place] kidney disease was noted to be presumed [...] function CAD: non-obstructive CAD on [facility] 2018. - continue home aspirin 81mg [...] I/O last 3 completed shifts: In: 0 [P.O.:1660] Out: 2074 [Urine:2074] No intake/output data [...] 5.05 (H) 11/19/2018 Kevin Prince MD, SERA Shore Worker of Clinical Medicine [facility] Discharge Planning Patient [...] Yes Name and Contact information: Gian Jensen ([phone]) Reviewed and Updated in Demographics? : Yes Outpatient Providers Does patient have a primary care physician? : Yes When was the patient's last PCP visit?: > 30 days Does the patient follow any specialists?: No Reviewed and updated Care Team?: Yes Patient Care Team: Zuly Bruno CNP as PCP - General Environment/Caregivers Is the patient from a facility or retirement?: No Patient lives with: Alone Living Environment: [...] patient on Anticoagulation? : No [id number] [place] [address] - [address] [address] Distribution Center Associate Does the patient or area representative express financial concerns? : No Employed?: Disabled Coping/Stress Concerns about patient s coping and stress?: No Concerns about patient s caregiver s coping and stress?: No Values and Beliefs Cultural or bahai practices that may impact discharge planning and/or [...] Plan 1. Identified self and role as Cook Seafood. 2. Confirmed and updated demographics and treatment team. 3. Cook Seafood will continue to follow with medical team/pt for any other additional discharge needs. Kasandra DON RN CM *Please note I am float CM and work Thursday and Thursday every other week. Please call [phone] for assist in my absence. Internal Medicine Daily Progress Note Patient: George Styles, 1970, [id number] Physician: Evan Kelly MD, PGY-1, TM1 service [...] s/p combined Liver-kidney transplant on 04/13/20. His [place] kidney disease was noted to be presumed [...] function CAD: non-obstructive CAD on [facility] 2018. - continue home aspirin 81mg [...] 5.05 (H) 11/19/2018 Kevin Prince MD, SERA Shore Worker of Clinical Medicine [facility] Internal Medicine Daily Progress Note Patient: George Styles, 1970, [id number] Physician: Laurel Serrano MD, PhD, PGY-3, TM1 [...] s/p combined Liver-kidney transplant on 04/13/20. His [place] kidney disease was noted to be presumed [...] BID CAD: non-obstructive CAD on [facility] 2018. - continue home aspirin 81mg daily, atorvastatin 20mg daily Gout: continue home allopurinol 200mg daily BPH: continue home flomax 0.4mg daily DVT PPX: SQH Code Status: Full Code Disposition: Pending clinical course. Anticipate eventual discharge home. Discussed with team and attending, Kevin Prince MD, on rounds. Signed, Laurel Serrano MD, PhD documented in this encounter [facility] 09-10-2023 Hospital Discharge instructions Laurel Serrano MD, [...] a sleep doctor. You will need to hot die picker the oxygen concentrator when you leave [...] on healthy foods. documented in this encounter [facility] 09-01-2023 Consult note Associated Order (s): IP CONSULT TO PULMONOLOGY Pulmonary Medicine Inpatient Consultation Reason for Consultation: bronch for infectious workup Requesting Physician: Dr. Prince Pulmonary Attending Physician: Dr. Diaz CURRENT HOSPITALIZATION: Admit Date: 08/28/2023 [facility] LOS: 4 days Impression/Recommendations: [...] Recommendations: - Plan to bronch tomorrow morning. NPO@AK, order placed - would repeat HIV, last [...] short period of time. 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 Other histories as documented in the [...] had any ill contacts. He traveled to [place] to family reunion in May. REVIEW OF [...] 05/17/2022 Surgeon: Enzo Heart DO; Location: [facility] INTERVENTIONAL RADIOLOGY (VIR) LIVER TRANSPLANT, ORTHOTOPIC N/A 04/12/2020 Laterality: N/A; Surgeon: LU Palma; Location: [facility] SAME DAY SURGERY MAIN OR KIDNEY TRANSPLANT W/O [place] NEPHRECTOMY N/A 04/12/2020 Laterality: N/A; Surgeon: LU Palma; Location: [facility] SAME DAY SURGERY MAIN OR OTHER [...] Alamo MD I can be reached via [employer] secure message (preferred) or Pager #[phone] documented in this encounter [facility] 08-28-2023 History and physical note Images from the original note were not included. Internal Medicine Admission History & Physical Patient: George Styles, 1970, [id number] Physician: Aric Turner MD, PGY1, Pager #[phone], service Date of face to face patient [...] So he went to see the transplant food sales clerk. He was found elevated Cr and asked [...] Appetite is ok now. Urine is about 7718-5199 ml every day. Stool every day, no [...] DAY SURGERY MAIN OR KIDNEY TRANSPLANT W/O [place] NEPHRECTOMY N/A 04/12/2020 Laterality: N/A; Surgeon: LU Palma; Location: [facility] SAME DAY SURGERY MAIN OR OTHER [...] hepatorenal syndrome s/p combined Liver-kidney transplant on 5/15/20. His [place] kidney disease was noted to be presumed [...] Urinary histoplasmosis - PJP, candid PCR - Zigzag Appliquer transplant ID Acute Kidney Injury with Kidney [...] BID CAD: non-obstructive CAD on [facility] 2018. - continue aspirin 81mg daily, [...] medical decisions as outlined above. Briefly: Mr. Sytles is a 53 y.o. year-old male with a past medical history of ESRD secondary to Hypertensive Nephrosclerosis. He received a Donation after Circulatory donor Liver transplant on 04/13/20. Mr. Styles was initially admitted to the hospital on 08/28/2023 for an initial diagnosis of Kidney replaced by transplant with FUO. Transplant Physician: Morgan Harris, Erma Roe, Fidelina Pierson, Luisa Steven, Renee Rivera, Daisha Max Blacksmith Helper: José Miguel Garnica All Txt: 04/13/2020 (Kidney), [...] results found for: CYCLOSPORIN , CYCLOSPORIN2 , [id number] , CYCLORAND No results found for: SIROLIMUS [...] Rest as above. Kevin Prince MD Pager [phone] documented in this encounter [facility] 08-28-2023 History of Present illness Narrative Images from the original note were not included. 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 Blacksmith Helper: Anayeli Burt Date of Liver Transplant: 04/13/2020 (Kidney), 04/13/2020 (Liver) 3 years 4 months post Liver/Kidney Transplant Primary Disease: Hypertensive Nephrosclerosis Transplant Will Call Order Clerk: Erma Roe/ Daisha Max Primary Care physician: [...] and faMOTIdine === None Specified Preferred Lab: [facility] Change in lab frequency / [...] every 12 hours. ADDITIONAL INFORMATION: None Specified, [id number] [place] [address] - [address] [facility] [address] [facility] [address] [facility] [address] [facility] [address] [facility][id number] [place] [address] [address] [facility] [address] [facility] [address] [facility] [address], [place] [address] [facility] [address] ROS and SCREEN: Chest Pain: negative Cough: [...] PHYSICIAN: I saw George Styles at the [facility] on 08/28/2023. Patient is a 53 y.o. 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 His [place] kidney disease was noted to be presumed [...] 05/17/2022 Surgeon: Enzo Heart DO; Location: [facility] INTERVENTIONAL RADIOLOGY (VIR) LIVER TRANSPLANT, ORTHOTOPIC N/A 04/12/2020 Laterality: N/A; Surgeon: LU Palma; Location: [facility] SAME DAY SURGERY MAIN OR KIDNEY TRANSPLANT W/O [place] NEPHRECTOMY N/A 04/12/2020 Laterality: N/A; Surgeon: LU Palma; Location: [facility] SAME DAY SURGERY MAIN OR OTHER [...] you have any questions. Steve Latham MD real estate account executive Division of Nephrology [facility] documented in this encounter [facility] 08-28-2023 Instructions Mainor Busby RN - 08/28/2023 2:15 PM EDT - Admission for fevers, cough, and night sweats documented in this encounter [facility] 08-19-2023 History of Present illness Narrative [facility]REACH ADVANC[facility]: Call Information: Date and Time of Contact: 08/19/2023 2:52 PM Method of Contact: By Phone Contact Type: Prescriptions Contactor: [facility] OP Contactee: Patient Shipping/Pickup: Medicare B Refill?: No Medication Name: Tacro 0.5mg Delivery Method: Air Delivery Location: Home Signature Required: No Mailing/Pickup Date: 08/25/2023 Shipping Address: [address] [place] [address] Contact Info: Specialty ([place]) [phone] [facility] [phone] [facility] [phone] Raheem [phone] Bedside Delivery ([facility]) [phone] documented in this encounter [facility] 06-12-2023 History of Present illness Narrative Images from the original note were not included. George Styles is a 53 y.o. 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 No longer follows with a local food sales clerk. History of Present Illness: Since George was [...] and lab results. Rebeca Gutierrez MSN, RN, UNDERGROUND CONDUIT INSTALLER-BC, CCTN Certified Nurse Practitioner Comprehensive Transplant Center [facility] [address] [facility] [address] documented in this encounter [facility] 06-12-2023 Instructions JEANNA Hess - 06/12/2023 3:00 PM EDT No change in immunosuppression. documented in this encounter [facility] 06-10-2023 History of Present illness Narrative [facility] OUTREACH [facility]ANCED: Call Information: Method of Contact: By Phone Contact Type: Prescriptions Contactor: [facility] OP Contactee: Patient Contact Outcome: Left message Shipping/Pickup: Medication Name: Mycophenolate sod 180 mg Contact Info: Specialty ([place]) [phone] [facility] [phone] [facility] [phone] Raheem [phone] Bedside Delivery ([facility]) [phone] [facility] OUTREACH ADVANCED: Call Information: Date and Time of Contact: 06/12/2023 9:43 AM Method of Contact: By Phone Contact Type: Prescriptions Contactor: [facility] OP Contactee: Patient Contact Outcome: Left message and Follow-up Shipping/Pickup: Medicare B Refill?: No Medication Name: Myco 180 Contact Info: Specialty ([place]) [phone] Jakob [phone] [facility] [phone] Raheem [phone] Bedside Delivery ([facility]) [phone] [facility] OP RX OUTREACH ADVANCED: Call Information: Date and Time of Contact: 06/12/2023 10:08 AM Method of Contact: By Phone Contact Type: Prescriptions Contactor: [facility] OP Contactee: Patient Shipping/Pickup: Medicare B Refill?: No Medication Name: Mycophenolate 180mg DR Delivery Method: Air Delivery Location: Home Signature Required: No Mailing/Pickup Date: 06/17/2023 Shipping Address: [address] [place] [address] Contact Info: Specialty ([place]) [phone] [facility] [phone] [facility] [phone] Raheem [phone] Bedside Delivery ([facility]) [phone] documented in this encounter [facility] 04-13-2023 Note [place] Cardiology - [facility] Subjective George Styles is a [...] Encounter on (more content not included)... [facility] 03-12-2023 History of Present illness Narrative [facility] RX OUTREACH ADVANCED: Call Information: Date and Time of Contact: 03/12/2023 10:34 AM Method of Contact: By Phone Contact Type: Prescriptions Contactor: [facility] OP Contactee: Patient Shipping/Pickup: Medicare B Refill?: No Medication Name: Mycophenoloate sod 360 mg prednisone 5mg Delivery Method: Air Delivery Location: Home Signature Required: No Mailing/Pickup Date: 03/16/2023 Shipping Address: [address] [place] [address] Contact Info: Specialty ([place]) [phone] [facility] [phone] [facility] [phone] Raheem [phone] Bedside Delivery ([facility]) [phone] [facility] OP RX OUTREACH ADVANCED: Call Information: [...] Required: No Mailing/Pickup Date: 03/19/2023 Shipping Address: [address] [place] [address] [address] Contact Info: Specialty ([place]) [phone] [facility] [phone] [facility] [phone] Raheem [phone] Bedside Delivery ([facility]) [phone] documented in this encounter [facility] 03-10-2023 History of Present illness Narrative [facility] RX OUTREACH ADVANCED: Call Information: Date and Time of Contact: 03/10/2023 12:00 PM Method of Contact: By Phone Contact Type: Prescriptions Contactor: [facility] Contactee: Patient Contact Outcome: Left message and Call back later Shipping/Pickup: Medication Name: Mycophenolate ; Tacrolimus Contact Info: Specialty ([place]) [phone] [facility] [phone] [facility] [phone] Raheem [phone] Bedside Delivery ([facility]) [phone] documented in this encounter [facility] 03-10-2023 History of Present illness Narrative [facility] RX OUTREACH ADVANCED: Call Information: Date and Time of Contact: 03/10/2023 12:00 PM Method of Contact: By Phone Contact Type: Prescriptions Contactor: [facility] Contactee: Patient Contact Outcome: Left message and Call back later Shipping/Pickup: Medication Name: Mycophenolate ; Tacrolimus Contact Info: [place]ty ([place]) [phone] Jakob [phone] [facility] [phone] Raheem [phone] Bedside Delivery ([facility]) [phone] [facility] RX OUTREACH ADVANCED: Call Information: Date and Time of Contact: 03/12/2023 10:32 AM Method of Contact: By Phone Contact Type: Prescriptions Contactor: [facility] Contactee: Patient Contact Outcome: Left message Shipping/Pickup: Medication Name: Mycophenolate sodium (MYFORTIC) 180 MG Tab tacrolimus 0.5 mg Contact Info: Specialty ([place]) [phone] Jakob [phone] [facility] [phone] Raheem [phone] Bedside Delivery ([facility]) [phone] documented in this encounter [facility] 01-16-2023 History of Present illness [...] GUIDANCE 05/17/2022 Surgeon: Enzo Heart DO; [facility] INTERVENTIONAL RADIOLOGY (VIR) LIVER TRANSPLANT, ORTHOTOPIC N/A 04/12/2020 Laterality: N/A; Surgeon: LU Palma; Location: [facility] SAME DAY SURGERY MAIN OR KIDNEY TRANSPLANT W/O [place] NEPHRECTOMY N/A 04/12/2020 Laterality: N/A; Surgeon: LU Palma; Location: [facility] SAME DAY SURGERY MAIN OR OTHER [...] 0.3 12/29/2022 Explant Pathology Pathologic Diagnosis A. Venetie Ira liver, orthotopic liver transplant resection (1458 gram): [...] A/P with IV contrast (06/27/2022): 1. Both [place] kidneys are atrophic with improvement in right-sided [...] frequent nighttime urination, etc). Daisha Max DO Shore Worker Gastroenterology, Hepatology and Nutrition [facility] Pager: [phone] Images from the original note were not included. 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 Blacksmith Helper: Anayeli Burt Date of Liver Transplant: 04/13/2020 (Kidney), 04/13/2020 (Liver) 2 years, 8 months post Liver/Kidney Transplant Primary Disease: Hypertensive Nephrosclerosis Transplant Will Call Order Clerk: Steve Latham Primary Care physician: Zuly Bruno [...] levels: No results found for: CYCLOSPORIN, CYCLOSPORIN2, [id number], CYCLORAND No components found for: CYCLOSPORINE, 2HR [...] hours. ADDITIONAL INFORMATION: None Specified [id number] [place] [address] - [address] [facility] [address] [facility] [address] [facility] [address] [facility] [address] [id number] [place] [address] [address] [facility] [address] [facility] [address] [facility] Jakob [address], [place] [address] [facility] [address] ROS and SCREEN: Chest Pain: negative Cough: [...] ADDRESS WITH PHYSICIAN: documented in this encounter [facility] 01-16-2023 Instructions José Miguel Garnica RN - 01/16/2023 9:40 AM EST - Labs Every 2 months - Discuss night time urination with your PCP - Schedule Colonoscopy through PCP - Follow up in 1 year documented in this encounter [facility] 09-10-2022 History of Present illness [...] and no hydronephrosis. Some reflux up the [place] right ureter but good drainage of both transplant and [place] ureter to the bladder. Nephrostomy tube was [...] transplant, orthotopic (N/A, 04/12/2020); kidney transplant w/o [place] nephrectomy (N/A, 04/12/2020); and placement nephrostomy catheter [...] Negative for , diarrhea, constipation Genitourinary: See TELLER Neurological: Negative for headaches. Lymph/Heme: Negative for [...] x 4, Normal strength. No edema. Skin: Amber, warm, and dry. There are no rashes [...] and no hydronephrosis. Some reflux up the [place] right ureter but good drainage of both transplant and [place] ureter to the bladder. Nephrostomy tube was [...] with any additional questions or concerns. Ryan Hurt MD 09/10/22 documented in this encounter [facility] 07-07-2022 History of Present illness Narrative Patient is here today for a right (side) nephrostogram. The patient arrived and was escorted to procedure room where the procedure was explained and the patient agreed to continue. Medications and allergies were verified with the patient and are consistent with the EMR. The patient was given Bactrim prior to the procedure. Consent was obtained by Dr. Hurt. The patient was placed in supine position upon the table and was prepped and draped in simple fashion. Time-out per Dr. Hurt. The nephrostomy tube was removed. The patient was assisted off the table and escorted to high lift mule operator where they made a follow up. Associated Order(s): NEPHROSTOMY TUBE REMOVAL Post-Procedure Diagnose(s): Other hydronephrosis NEPHROSTOMY TUBE REMOVAL Date/Time: 07/07/2022 2:10 PM Performed by: Ryan Hurt MD Authorized by: Ryan Hurt MD Nephrostomy tube removal: Right Pre-procedure details: [...] to have transplant ureter with anastomosis to [place] right ureter. Nephrostogram without filling defects and no hydronephrosis. Some reflux up the [place] right ureter but good drainage of both transplant and [place] ureter to the bladder. Nephrostomy tube was removed without issue. Patient does have some sensation of incomplete bladder emptying and occasional sensation in his right flank. PVR today was 33cc. Will re-evaluate urinary symptoms at next appointment. --continue Flomax --RTC in one month flow flow/PVR/IPSS Patient to call with any additional questions or concerns. Ryan Hurt MD 07/07/22 documented in this encounter [facility] 06-27-2022 History of Present illness Narrative UROLOGY [...] transplant, orthotopic (N/A, 04/12/2020); kidney transplant w/o [place] nephrectomy (N/A, 04/12/2020); and placement nephrostomy catheter [...] Negative for , diarrhea, constipation Genitourinary: See TELLER Neurological: Negative for headaches. Lymph/Heme: Negative for [...] x 4, Normal strength. No edema. Skin: Amber, warm, and dry. 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 Nephrostomy tube placed 05/17 [...] with any additional questions or concerns. Ryan Hurt MD 06/27/[address] kleinguetl patient needed nephrostomy tube cap off, teach him how to flush it and give him one new bag to take home. 5ml of 0.9 NS flushed without difficulty. Nephrostomy tube capped off. Supplies given to patient. Patient voice understanding the instructions on how to flush, how to cap off and how to place a new bag if needed. documented in this encounter [facility] 06-27-2022 History and physical note Patient was evaluated in clinic as a nurse visit. Please refer to Rena Brewster's note. [facility] Work Phone: 06-27-2022 History and physical note Patient was evaluated in clinic as a nurse visit. Please refer to Rena Brewster's note. documented in this encounter [facility] 06-27-2022 History of Present illness Narrative TEACHING REGARDING TX NEPH COMPLETED-NEPH TUBE SITE DRY AND INTACT-CLEAR YELLOW URINE IN THE BAG-INSTRUCTED ABOUT FLUSHING, BAG CHANGING ETC. NUMEROUS QUESTIONS ASKED AND ANSWERED-VERBALIZED UNDERSTANDING documented in this encounter [facility] 06-18-2022 Note EXAMINATION: CT ABD/ [...] mass or enlargement. KIDNEYS: Marked atrophy of [place] kidneys. Transplant right pelvic kidney with percutaneous [...] by: MÓNICA JIMENEZ Date: 2022-06-18 13:53 [facility] 06-12-2022 Instructions Anayeli Christianson RN - 06/12/2022 3:21 PM EDT Do not take apart/disrupt nephrostomy tube system. Call Interventional Radiology and/or on-call transplant nurse [phone] for instruction if need to flush (clot or decreased flow). Take cipro 500mg, one tablet, twice per day for 14 days documented in this encounter [facility] 06-12-2022 History of Present illness Narrative Images from the original note were not included. 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 Blacksmith Helper: Anayeli Burt Date of Liver Transplant: 04/13/2020 (Kidney), 04/13/2020 (Liver) 2 year, 1 months post Liver/Kidney Transplant Primary Disease: Hypertensive Nephrosclerosis Transplant Will Call Order Clerk: Steve Latham Primary Care physician: Zuly Summerslydiajose e combined liver/kidney transplant from a Donation after [...] Non-obstructing kidney stone in renal graft at [facility]. Percutaneous Neph Tube placed Images from the original note were not included. Nursing Assessment In Clinic (see Clinic Prep Sheet for additional information) Patient is accompanied to clinic today by: self Did patient require a wheelchair or medical transport for appointment: no Did front end wheel loader operator confirm current address and insurance information [...] LAB AND PHARMACY: None Specified [facility] [place] [address] - [address] [facility] [address] [facility] [address] [facility] [address] [facility] [address] [id number] [place] [address] [address] [facility] [address] [facility] [address] [facility] Jakob [address], [place] [address] [facility] [address] ROS and SCREEN: Chest Pain: negative Cough: negative SOB: negative Abd Pain: negative Nausea: positive Vomiting: negative Diarrhea: negative Constipation: negative Dysuria: positive Edema: negative Tremors: negative Headaches: negative Wound issues: negative Pt has neph tube w clear yellow urine. States he had a small clot that he dislodged QUESTIONS OR CONCERNS TO ADDRESS WITH PHYSICIAN: I saw George Styles at the [facility] on 06/12/2022. Patient is a 52 y.o. 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 His [place] kidney disease was noted to be presumed [...] Laterality: N/A; Surgeon: LU Palma; Location: [facility] SAME DAY SURGERY MAIN OR KIDNEY TRANSPLANT W/O [place] NEPHRECTOMY N/A 04/12/2020 Laterality: N/A; Surgeon: LU Palma; Location: [facility] SAME DAY SURGERY MAIN OR OTHER [...] you have any questions. Steve Latham MD real estate account executive Division of Nephrology [facility] documented in this encounter [facility] 06-04-2022 Instructions TATI GROVE - 06/04/2022 11:04 AM EDT Thank you for joining us for your neph tube follow up. We recommend routine exchange every 8-10 weeks. Please reach out at [phone] when it is time to set your next routine exchange. Thank you IR clinic documented in this encounter [facility] 06-04-2022 History of Present illness [...] exchange. Verbalized understanding. documented in this encounter [facility] 05-20-2022 Note Formatting of this [...] time of his discharge. Leon Cook RN [facility] 05-20-2022 Miscellaneous Notes Patient discharged. [...] provide teaching before his discharge Leon RN #[id number] Leon Cook RN Afternoon assessment completed at [...] Interdisciplinary Rounds/Family Conf Outcome: Ongoing Discussed with [facility] re: possible urine culture performed [...] with questions. Evan Byrd MD Urology, PGY-2 #[id number] I certify that this patient requires inpatient [...] Kallie Lorenzana RN documented in this encounter [facility] 05-20-2022 Note Formatting of this [...] discharge/transition of care. Outcome: Adequate for Discharge [facility] 05-20-2022 Note Formatting of this n ote might be different from the original. Anne Dillard MD R10 Rm 1003 Jensen George Please let's have a clear order on how the nephrostomy site dressing need to be changed when the patient goes home so we provide teaching before his discharge Leon RN #[id number] Leon Cook RN [facility] 05-20-2022 History of Present illness Narrative Images from the original note were not included. [facility] ([facility] Note: [facility] received the following discharge prescription(s): Medication reconciliation was completed with comparison to discharge reconciliation report. The prescription(s) will be delivered to the patient's bedside on 05/20/22. Total cost is $0. Yanira Her RPh,PharmD Specialty ([place]) [phone] Jakob [phone] [facility] [phone] Raheem [phone] [place] [phone] Bedside Delivery ([facility]) [phone] Attending I saw George Styles at the [facility] on 05/19/2022. I saw and independently [...] Daily Progress Note Patient: George Styles, 1970, [id number] Physician: Liam Julian MD, PGY-3, Pager #[phone], [email or web address] Subjective/Interval History: No acute events overnight. Passed [...] MD (Peggy) Division of Hospital Medicine Pager [phone] Attending I saw George Styles at the [facility] on 05/18/2022. I saw and independently [...] Evan Bennett MD 5 mg at 05/17/22 09 aspirin chewable tablet 81 mg 81 mg [...] Daily Progress Note Patient: George Styles, 1970, [id number] Physician: Nishant Gamez MD, PGY2, Pager #[phone], [email or web address] Subjective/Interval History: Nephrostomy tube placed yesterday with [...] alcoholic cirrhosis/ESRD follows with Dr Yeison. - Restart home tacrolimus - continue cellcept [...] to have stablized for this to be area representative. Daya ([place]) Jeff Saldana MD Division of Hospital Medicine Pager [phone] Internal Medicine Daily Progress Note Patient: George Styles, 1970, [id number] Physician: Nishant Gamez MD, PGY2, Pager #[phone], [email or web address] Subjective/Interval History: Worsening creatinine this morning with minimal urine output. Paged IR to let them no of his worsening kidney function. They plan for nephrostomy tube placement this morning. Objective: Vitals: 05/17/22 0334 BP: 134/71 Pulse: 122 Resp: 20 Temp: 98.6 F (37 C) O2 Device: room air (05/17/22 0334) Gen: NAD, well-appearing HENT: NCAT, EOMI, MMM [...] MD (Peggy) Division of Hospital Medicine Pager [phone] Attending I saw George Styles at the [facility] on 05/17/2022. I saw and independently [...] QHS Evan Bennett MD 400 mg at 06/17/22 2048 guaiFENesin (ROBITUSSIN) oral solution 400 mg [...] of chart and discussion with treatment team, [employer] has not identified needs at this time. [...] follow. Introduced self and role of the charging manipulator to patient. Provided emotional and spiritual support and the patient responded by sharing their experience and discussed the following: - Spirituality/Synagogue Affiliation: As a kid attended [employer] vood[employer] but not a strong identity now - Family support - pt's brothers live close by Key Account Director provided: - Supportive presence - Active listening - Validation of feelings/emotions Patient encouraged to request a charging manipulator as needed. Chaplains are available in-house 24 hours a day and 7 days a week. For urgent matters in [facility], please page [phone]. If the request is not urgent, please enter a consult. Consults are responded to within 24 hours. Angie Singh Mdiv, [facility] Trans[facility] [place] [address] Key Account Director [facility] Key Account Director Kirk 1-1626 [email or web address] 22/06 [facility] Pager [phone] 22/06 Pager ,[facility], and Brock 1500 22/06 Raheem Pager [phone] 05/16/22 1129 Clinical Encounter Type Visited With Patient Visit Type Introduction Pastoral Time Spent 15 min Referral Other (See Comment) (Rounding) Spiritual Assessment Spiritual Observation Spirituality helpful;Identifies as (see comment) (Adventist) Emotional Observation Coping well Hope Observation Hopeful and accepting Support Observation By Family Interventions Provided Active listening;Supportive presence Facilitated Verbalization of feelings;Sharing of life story;Identifying support system Explored Expectations Technical Agronomist Education Technical Agronomist Service Available Yes Educated Patient Outcomes Patient Outcomes Articulated purpose/meaning Plan of Care Continue Visiting PRN Internal Medicine Daily Progress Note Patient: George Styles, 1970, [id number] Physician: Nishant Gamez MD, PGY2, Pager #[phone], [id number] Subjective/Interval History: Overall feeling okay this morning. 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 [...] Supervision Transfer Assessment: Sit to Stand Transfer Bull[place] Level: Sit->Stand: independent Skilled Intervention/Details: Sit->Stand: x1 from EOB Stand to Sit Transfer [place] Level: Stand->Sit: supervision Assistive Device: Stand->Sit: armed chair Skilled Rationale: Controlled descent for sitting, Verbal cues Gait/Functional Mobility: Gait Assessment Bull[place] Level: Gait: supervision Assistive Device: Gait: gait belt Gait Distance (feet): 200 Gait Deviations Identified: decreased grace, decreased step length, decreased stride length Gait Skilled Rationale: verbal, upright posture Skilled Intervention/Details - Gait: Pt with steady gait without LOB or complaints of SOB. Stairs: Stairs Assessment Bulloch Level: Stair Negotiation: stand-by assist Assistive Device: Stair Negotiation: gait belt, left rail (ascending) Number of stairs: 9 Stairs Skilled Rationale: reciprocal pattern Outcome Score(s): CURRENT [facility] Basic Mobility Inpatient Short Form Turning over in bed: 4 - No Assistance Sitting/standing from chair: 4 - No Assistance Moving from lying on back to sittin - No Assistance Moving to and from bed to chair: 4 - No Assistance Walk in hospital room: 3 - A Little Assistance Climbing 3-5 steps with a railin - A Little Assistance CURRENT [facility] Mobility Raw Score: 22 CURRENT [facility] Mobility Functional Limitation/Modifier: 20.91% Currently Impaired [...] reported no concerns with discharging home with pecos support. 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 IADL History IADLs: independent Primary Language: Finnish Home Management Skills: independent Meal Prep Responsibility: [...] Assessment: Transfer Assessment: Sit to Stand Transfer Bulloch Level: Sit->Stand: independent Skilled Rationale: Cues for increased safety Skilled Intervention/Details: Sit->Stand: x1 EOB Stand to Sit Transfer Bull[place] Level: Stand->Sit: supervision Assistive Device: Stand->Sit: gait belt, armed chair Skilled Rationale: Verbal cues, Controlled descent for sitting, Cues for increased safety Skilled Intervention/Details: Stand->Sit: cues for hand placement and controlled descent Functional Mobility: Functional Mobility Bulloch Level: Functional Mobility/Gait: stand-by assist Assistive Device: Functional Mobility/Gait: gait belt Functional Mobility Distance: Distance needed for limited community mobility Functional Mobility Deficits: Activity tolerance, Balance, Decreased step length, Generalized weakness Functional Mobility Skilled Rationale: Verbal cues, Facilitate postural control Skilled Intervention/Details - Functional Mobility/Gait: cues for upright posture Outcome Score(s): CURRENT [facility] Daily Activity Inpatient Short Form Putting on/Taking Off Lower Body Clothin - A Little Assistance Bathin - A Little Assistance Toiletin - A Little Assistance Putting on/Taking Off Upper Body Clothin - No Assistance Groomin - No Assistance Eatin - No Assistance CURRENT [facility] Activity Raw Score: 21 CURRENT [facility] Activity Functional Limitation/Modifier: 32.79% Currently Impaired [...] DAY SURGERY MAIN OR KIDNEY TRANSPLANT W/O [place] NEPHRECTOMY N/A 04/12/2020 Laterality: N/A; Surgeon: LU [...] by: Mel Norman OT, OTR/L License #: [id number] pager # [phone] 05/20/2022 Upon discontinuation of Acute Care Occupational Therapy Services or patient discharge from the hospital this note represents the current Occupational Therapy Discharge Summary. documented in this encounter [facility] 05-20-2022 Hospital course Narrative Discharge [...] during his recent hospital stay at [facility]. As you may know, George [...] Saldana MD Division of Hospital Medicine p: [phone] f: [phone] CONSULTS DURING ADMISSION: IP CONSULT TO SURGERY - UROLOGY IP CONSULT TO NEPHROLOGY - TRANSPLANT (MEDICINE) IP CONSULT TO INTERVENTIONAL RADIOLOGY IP CONSULT TO PHYSICAL THERAPY IP CONSULT TO OCCUPATIONAL THERAPY IP CONSULT TO PHARMACY BEDSIDE DISCHARGE MED DELIVERY IMAGING / PROCEDURES / RESULTS: Should you require further information or copies of results or reports please contact Medical Information Management @ [phone] LABS AT TIME OF DISCHARGE: Lab Results [...] Bruno [address] / [place] [address] MEDICATIONS: Discharge Orders CT ABDOMEN/PELVIS WITHOUT CONTRAST [...] CAPS Generic drug: docusate Follow-up: Zuly Bruno, TURNTABLE MAN [address] [facility] [address] Schedule an appointment as soon as possible for a visit Follow-up appointment with your, primary care physician within 7-10 days, after discharge. [address] [facility] [address] Follow up The department of urology will call you with a follow up appointment. LU Ovalle [address] 11[address] Floor [facility] [address] Follow up Please make a follow up appointment with Dr. Latham's office. Upcoming Appointments (up to five)-Some appointments for Medical Center outpatient clinics or diagnostic testing locations are not displayed below Provider Department Dept Phone 06/04/2022 10:40 AM IR CLINIC RA[facility]EM [facility] Interventional Radiology Clinic [phone] 06/27/2022 1:30 PM [facility] Department of Radiology Arrive at: Arrive to First Floor Registration Desk [phone] 06/27/2022 2:40 PM Ryan Hurt [facility] Arrive at: Arrive to 2nd Floor, Registration [address] 10/31/2022 1:00 PM Steve Latham [facility] Transplant [facility] [facility] [phone] 01/16/2023 9:40 AM TRANSPLANT HEPATOLOGY 3, [facility] [phone] Associated attestation - Daya Saldana MD - [...] Saldana MD Division of Hospital Medicine Pager [phone] documented in this encounter [facility] 05-20-2022 Hospital Discharge instructions Giulia Cavazos RN [...] be changed by Interventional Radiology. Please call [phone] to schedule this appointment and with any questions or concerns you may have regarding the nephrostomy tube. If you have questions or concerns, please call Interventional Radiology at SOMEONE FROM INTERVENTIONAL RADIOLOGY WILL CALL YOU FOR A FOLLOW UP IN THE IR CLINIC Giulia Cavazos RN Nurse Coordinator Interventional Radiology Interventional Radiology Outpatient scheduling documented in this encounter [facility] 05-19-2022 Note Formatting of this [...] Ongoing Goal: Interdisciplinary Rounds/Family Conf Outcome: Ongoing [facility] 05-19-2022 Note Formatting of this n ote might be different from the original. Discussed with [facility] re: possible urine culture performed at their facility. However, based on urinalysis completed at that time, which was only notable for hematuria, culture was not performed and sample no longer feasible for culture. Liam Julian MD Internal Medicine/Pediatrics, PGY-3 [facility] 05-18-2022 Note Formatting of this n ote might be different from the original. 2002: IHIS message sent to Dr Justyn Wen, regarding patient passing a small kidney stone, about the size of pea. MD notified. Stone left in strainer in pt bathroom. 499: IHIS message sent to Dr Justyn Wen, regarding pt BP 174/77. [facility] 05-18-2022 Note Formatting of this [...] outcomes by discharge/transition of care. Outcome: Ongoing [facility] 05-18-2022 Note Formatting of this [...] becomes hyponatremic, NS should instead be used. [facility] Work Phone: 05-18-2022 Note Formatting of this n ote might be different from the original. IHIS chat sent to Dr Tray Quintana, regarding pt BP 190/86. Pt complaining of pain at site of neph tube. PRN pain medication given per order parameters. Pt denies any other symptoms at this time. MD notified and aware. [facility] 05-17-2022 Note Formatting of this n ote might be different from the original. At 0900, I rounded with Dr. Gamez and Dr. Saldana. At that time I checked Mr. Styles's vital signs. His pulse oximeter was low and he was tachypneic. Verbal order at bedside to put nasal cannula on starting at 2liters oxygen and to provide incentive spirometer. [facility] 05-17-2022 Note Formatting of this n ote might be different from the original. Interventional Radiology procedure completed with IR Attending Dr. Heart / Dr. Le of percutaneous right nephrostomy tube placement transplant kidney 10.2 Fr Griffin acosta Pt tolerated procedure with moderate sedation local numbing agent . Transported to inpatient after phase I recovery. Post procedure orders in place. [facility] 05-16-2022 Note Formatting of this n ote might be different from the original. At 1530, I text chavad Kaitlynn Gomez MD that patient has only had 25ml urine output in matias this afternoon. [facility] 05-16-2022 Note Formatting of this [...] with questions. Evan Byrd MD Urology, PGY-2 #[id number] [facility] Work Phone: 05-16-2022 Note Formatting [...] care will be discharge to home. [facility] 05-16-2022 Consult note Associated Order (s): IP CONSULT TO NEPHROLOGY - TRANSPLANT (MEDICINE) I saw George Styles at the [facility] on 05/16/2022. Reason for Consultation: kidney [...] he was given flomax and sent home. Ledger better but noticed more pain and decreased [...] best assessment and recommendations. Maxi Pringle MD [facility] Work Phone: 05-16-2022 Consult note Associated Order (s): IP CONSULT TO NEPHROLOGY - TRANSPLANT (MEDICINE) I saw George Styles at the [facility] on 05/16/2022. Reason for Consultation: kidney [...] he was given flomax and sent home. Ledger better but noticed more pain and decreased [...] states he went to his local ED [place] and he was put on Flomax and he did improve. Pt states last night he was unable to void with severe right sided abd pain. Pt states nausea and no vomiting or fevers. Pt states he went back to [place] ED at 0100 and they placed a [...] orthotopic (N/A, 04/12/2020); and kidney transplant w/o [place] nephrectomy (N/A, 04/12/2020). 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 The [place] kidneys are progressively atrophic bilaterally compared to [...] of 06/14/2020 are no longer present. The [place] distal right ureter is decompressed beyond this [...] with surgical history for renal graft and [place] right urinary drainage, as a discrete ureteroneocystostomy is not identified, and the graft may be draining via a ureteroureterostomy. Urology consultation recommended. 3. The [place] kidneys are bilaterally atrophic, with right renal sinus calcifications consistent with nonobstructing right [place] renal calculi up to 6 mm. Normal [...] PGY-3, Department of Urologic Surgery Pager #: [phone] Associated attestation - Ryan Hurt MD - 05/16/2022 12:23 PM EDT I [...] continue flomax documented in this encounter [facility] 05-16-2022 Note Formatting of this n ote [...] supported Trust Relationship/Rapport: care explained choices provided [facility] 05-16-2022 Note Formatting of this n ote might be different from the original. On admission to 0, a dual RN initial assessment of skin condition was performed by Kallie Lorenzana RN and Sheri Arguelles RN. Skin Assessment: WDL Jose Score: 20 LDA Added:N Kallie Lorenzana RN [facility] 05-15-2022 Emergency department Note Report given to Kallie RN at 10 [facility] 05-15-2022 Emergency department Note Report [...] diagnosed Thursday and was sent home with [facility]. He went back to that ED and [...] Laterality: N/A; Surgeon: LU Palma; Location: [facility] SAME DAY SURGERY MAIN OR KIDNEY TRANSPLANT W/O [place] NEPHRECTOMY N/A 04/12/2020 Laterality: N/A; Surgeon: LU Palma; Location: [facility] SAME DAY SURGERY MAIN OR OTHER [...] Laboratory evaluation is remarkable for UTI and FYAE with an elevated white count. He was given ceftriaxone. Patient was discussed with Urology as above. Impression: UTI, FAYE Dispo: Admit to medicine This note was dictated with M-Modal. Every effort was made to correct grammatical mistakes but please excuse any incorrections. Matt Schneider MD Resident 05/15/222030 Pt arrives from [facility] with kidney stones. Pt states he had right lower abd pain and right flank pain with blood in his urine since Thursday. Pt states he went to his local ED [place] and he was put on Flomax and he did improve. Pt states last night he was unable to void with severe right sided abd pain. Pt states nausea and no vomiting or fevers. Pt states he went back to [place] ED at 0100 and they placed a matias and CT scan completed and multiple kidney stones noted. [facility] as [facility] had liver and kidney transplant in 03/2020. documented in this encounter [facility] 05-15-2022 History and physical note Internal Medicine Admission History & Physical Patient: George Styles, 1970, [id number] Physician: Evan Bennett MD, PGY1, Pager #[phone], GM 4 service Date of face to [...] Laterality: N/A; Surgeon: LU Palma; Location: [facility] SAME DAY SURGERY MAIN OR KIDNEY TRANSPLANT W/O [place] NEPHRECTOMY N/A 04/12/2020 Laterality: N/A; Surgeon: LU Palma; Location: [facility] SAME DAY SURGERY MAIN OR OTHER [...] erythema: Skin: No jaundice or rash Neuro: cook pie 3-7, 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 Strength grossly [...] dilation of the calyces may represent narrowing/partial [id number] ofthe ureter and mild hydronephrosis or sequela [...] prophylaxis with heparin Disposition: GM 4 for gsos control and infectious workup Code status is [...] Fred Prince MD Division of Hospital Medicine [phone] [facility] Work Phone: 05-15-2022 History and physical note Internal Medicine Admission History & Physical Patient: George Styles, 1970, [id number] Physician: Evan Bennett MD, PGY1, Pager #[phone], GM 4 service Date of face to [...] DAY SURGERY MAIN OR KIDNEY TRANSPLANT W/O [place] NEPHRECTOMY N/A 04/12/2020 Laterality: N/A; Surgeon: LU [...] erythema: Skin: No jaundice or rash Neuro: cook pie 3-7, 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 Strength grossly [...] dilation of the calyces may represent narrowing/partial [id number] ofthe ureter and mild hydronephrosis or sequela [...] Medicine [id number] documented in this encounter [facility] 05-15-2022 Emergency department Note Bladder scan with Dr Villatoro at bedside, 14ml noted [facility] 05-15-2022 Consult note Associated Order (s): IP [...] states he went to his local ED [place] and he was put on Flomax and he did improve. Pt states last night he was unable to void with severe right sided abd pain. Pt states nausea and no vomiting or fevers. Pt states he went back to [place] ED at 0100 and they placed a [...] orthotopic (N/A, 04/12/2020); and kidney transplant w/o [place] nephrectomy (N/A, 04/12/2020). 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 The [place] kidneys are progressively atrophic bilaterally compared to [...] of 06/14/2020 are no longer present. The [place] distal right ureter is decompressed beyond this [...] with surgical history for renal graft and [place] right urinary drainage, as a discrete ureteroneocystostomy is not identified, and the graft may be draining via a ureteroureterostomy. Urology consultation recommended. 3. The [place] kidneys are bilaterally atrophic, with right renal sinus calcifications consistent with nonobstructing right [place] renal calculi up to 6 mm. Normal [...] PGY-3, Department of Urologic Surgery Pager #: [phone] Associated attestation - Ryan Hurt MD - 05/16/2022 12:23 PM EDT I [...] before surgical intervention --may continue flomax [facility] Work Phone: 05-15-2022 Emergency department Note Advised Dr Schneider concerning no urine output via matias catheter. [facility] 05-15-2022 Physician Emergency department Note ED Attending George tSyles has a past medical history of Acute [...] plan of care. Gian Villatoro MD 05/15/222003 [facility] Work Phone: 05-15-[address] Schneider made aware of only 30 ml urine via matias since arrival to room. [facility] 05-15-2022 Physician Emergency department Note [...] Laterality: N/A; Surgeon: LU Palma; Location: [facility] SAME DAY SURGERY MAIN OR KIDNEY TRANSPLANT W/O [place] NEPHRECTOMY N/A 04/12/2020 Laterality: N/A; Surgeon: LU Palma; Location: [facility] SAME DAY SURGERY MAIN OR OTHER [...] any incorrections. Matt Schneider MD Resident 05/15/222030 [facility] Work Phone: 05-15-2022 Emergency department Note Pt arrives from [facility] with kidney stones. Pt states he had right lower abd pain and right flank pain with blood in his urine since Thursday. Pt states he went to his local ED [place] and he was put on Flomax and he did improve. Pt states last night he was unable to void with severe right sided abd pain. Pt states nausea and no vomiting or fevers. Pt states he went back to [place] ED at 0100 and they placed a matias and CT scan completed and multiple kidney stones noted. Pt [facility] as he had liver and kidney transplant in 03/2020. [facility] 03-14-2022 History of Present illness [...] Required: No Mailing/Pickup Date: 03/17/2022 Shipping Address: [address] [place] [address] Contact Info: Specialty ([place]) [phone] [facility] [phone] [facility] [phone] Raheem [phone] Bedside Delivery ([facility]) [phone] documented in this encounter [facility] 06-14-2021 History of Present illness [...] 05/16/22 Goal Progress: Satisfactory Contact Info: Specialty ([place]) [phone] [facility] [phone] [facility] [phone] [facility] [phone] Bedside Delivery ([facility]) [phone] [facility]: Call Information: Date [...] Location: Home Signature Required: Yes Shipping Address: [address] [place], [place] [id number] Contact Info: Specialty ([place]) [phone] Jakob [phone] [facility] [phone] [facility] [phone] Bedside Delivery ([facility]) [phone] documented in this encounter [facility] Evaluation note Diagnosis FAYE (acute kidney injury)- Primary Acute kidney failure, unspecified Hydronephrosis due to obstruction of ureteral orifice Hydronephrosis due to obstruction of ureteral orifice FAYE (acute kidney injury) Acute kidney failure, unspecified [facility] Diagnosis Follow-up exam- Primary Unspecified follow-up examination [facility] Diagnosis Immunosuppressed status- Primary Unspecified disorder of immune mechanism Kidney replaced by transplant Liver replaced by transplant Abnormal blood chemistry Other abnormal blood chemistry High risk medication use Encounter for long-term (current) use of other medications Aftercare following organ transplant Liver transplant recipient [facility] Diagnosis Attention to nephrostomy- Primary [facility] Diagnosis Other hydronephrosis- Primary [facility] Diagnosis FAYE (acute kidney injury) Acute kidney failure, unspecified [facility] Diagnosis Other hydronephrosis- Primary -donor kidney transplant recipient Kidney replaced by transplant [facility] Diagnosis Other hydronephrosis [facility] Diagnosis 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) Encounter for screening for malignant neoplasm of prostate Special screening for malignant neoplasm of prostate [facility] Diagnosis Abnormal blood chemistry- Primary Other abnormal blood chemistry Liver transplant recipient Kidney replaced by transplant Immunosuppressed status Unspecified disorder of immune mechanism Aftercare following organ transplant [facility] Diagnosis Kidney replaced by transplant- Primary [facility] Diagnosis Immunosuppressed status- Primary Unspecified disorder of immune mechanism Kidney replaced by transplant Aftercare following organ transplant High risk medication use Encounter for long-term (current) use of other medications Other general symptoms and signs Abnormal blood chemistry Other abnormal blood chemistry Hypertension secondary to other renal disorders [facility] Diagnosis Histoplasmosis- Primary Histoplasmosis, unspecified without [...] Fever, unspecified [facility] Diagnosis Bilateral lower extremity edema- Primary 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) Atherosclerosis 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) Atherosclerosis of aorta Obesity (BMI 30-39.9) DARLENE (obstructive sleep apnea) Obstructive sleep apnea (adult) (pediatric) Tremor Abnormal involuntary movements Immunocompromised (CMS/HCC) Unspecified immunity deficiency Primary hypertension (CMS/HCC) Unspecified essential hypertension Shortness of breath documented in this encounter [facility]* Diagnosis Pleural effusion on right- [...] pre-operative examination [facility] Diagnosis Heart failure, diastolic, acute- Primary Acute diastolic heart failure [facility] Consultation (Routine) - New Request Specialty Diagnoses / Procedures Referred By Deni edwards Referred To Contact Interventional Radiology Diagnoses Hydronephrosis due to obstruction of ureteral orifice Daya Saldana MD [address] [place] [address] Referral ID Status Reason Start Date Expiration Date V isits Requested Visits Authorized [id number] New Request 05/18/2022 06/12/2023 1 1 * Radiology (Emergency) - New Request Specialty Diagnoses / Procedures Referred By Contac t Referred To Contact Procedures US RENAL TRANSPLANT SCAN Daya Saldana MD [address] [place] [address] Referral ID Status Reason Start Date Expiration Date V isits Requested Visits Authorized [id number] New Request 05/16/2022 06/10/2023 1 1 * Consultation (Routine) - New Request Specialty Diagnoses / Procedures Referred By Contac t Referred To Contact Urology Diagnoses FAYE (acute kidney injury) Ryan Hurt MD [address] [place] [address] [address] [place] [address] Referral ID Status Reason Start Date Expiration Date V isits Requested Visits Authorized [id number] New Request 05/16/2022 06/10/2023 1 1 * MRI/CAT Scan (Routine) - New Request Specialty Diagnoses / Procedures Referred By Contac t Referred To Contact Diagnoses FAYE (acute kidney injury) Procedures CT ABDOMEN/PELVIS WITHOUT CONTRAST CHG CT SCAN,ABDOMENT AND PELVIS,W/O CONTRAST Ryan Hurt MD [address] [place] [address] [address] [place] [address] Referral ID Status Reason Start Date Expiration Date V isits Requested Visits Authorized [id number] New Request 05/16/2022 06/10/2023 1 1 * (Routine) - Pending Review Specialty Diagnoses / Procedures Referred By Contac t Referred To Contact Procedures PLATELET MONITORING PER PROTOCOL Daya Saldana MD [address] [place] [address] Referral ID Status Reason Start Date Expiration Date V isits Requested Visits Authorized [id number] Pending Review 05/15/2022 06/09/2023 1 1 * (Routine) - Pending Review Specialty Diagnoses / Procedures Referred By Contac t Referred To Contact Procedures DVT/VTE RISK ASSESSMENT Daya Saldana MD [address] [place] [address] Referral ID Status Reason Start Date Expiration Date V isits Requested Visits Authorized [id number] Pending Review 05/15/2022 06/09/2023 1 1 * (Routine) Specialty Diagnoses / Procedures Referred By Contac t Referred To Contact Evan Bennett MD [address] [place] [address] Referral ID Status Reason Start Date Expiration Date Visits Re quested Visits Authorized * (Routine) Specialty Diagnoses / Procedures Referred By Contac t Referred To Contact Evan Bennett MD [address] [place] [address] Referral ID Status Reason Start Date Expiration Date Visits Re quested Visits Authorized [facility] for referral (narrative)* Consultation (Routine) - New Request Specialty Diagnoses / Procedures Referred By Contac t Referred To Contact Sleep Medicine Diagnoses Kevin Conroy MD [address] [place] [address] Referral ID Status Reason Start Date Expiration Date V isits Requested Visits Authorized [id number] New Request 09/10/2023 10/04/2024 1 1 * MRI/CAT Scan (Routine) - New Request Specialty Diagnoses / Procedures Referred By Contac t Referred To Contact Diagnoses Histoplasmosis Procedures CT CHEST WITHOUT CONTRAST CHG DIAGNOSTIC COMPUTED TOMOGRAPHY THORAX W/O CNTRST Kevin Prince MD [address], [place] [address] Referral ID Status Reason Start Date Expiration Date V isits Requested Visits Authorized [id number] New Request 09/10/2023 10/04/2024 1 1 * Radiology (Routine) - New Request Specialty Diagnoses / Procedures Referred By Contac t Referred To Contact Procedures US RENAL TRANSPLANT SCAN Steve Latham MBBS [address] [place] [phone] Referral ID Status Reason Start Date Expiration Date V isits Requested Visits Authorized [id number] New Request 08/29/2023 09/22/2024 1 1 * (Routine) - New Request Specialty Diagnoses / Procedures Referred By Contac t Referred To Contact Procedures PLATELET MONITORING PER PROTOCOL Steve Latham MBBS [address] [place] [phone] Referral ID Status Reason Start Date Expiration Date V isits Requested Visits Authorized [id number] New Request 08/28/2023 09/21/2024 1 1 * (Routine) - New Request Specialty Diagnoses / Procedures Referred By Contac t Referred To Contact Procedures DVT/VTE RISK ASSESSMENT Steve Latham MB[facility] [address], [place] [address] Referral ID Status Reason Start Date Expiration Date V isits Requested Visits Authorized [id number] New Request 08/28/2023 09/21/2024 1 1 [facility] Instructions * Patient Instructions - Christin Elizabeth APRN-ROB - 10/19/2018 9:21 AM EST You should take an extra dose of the lactulose as needed so that you are having 3-4 bowel movementsdaily. You should start the chemical dependency counseling as soon as possible. If you have questions, call the transplant social services director Fidelina Pierson. in this encounter* Patient Instructions - Sophie Cary, SAMI - 10/12/2018 11:09 AM EST You have been seen in the pre-transplant evaluation clinic by Dr. Restrepo and Sophie Cary. Sophie Cary is your pre-oncology coordinator she can be reached at [phone] at any time for questions during the pre-transplant process. Your evaluation is complete pendin. Abdominal ultrasound. 2. 6 minute walk test. 3. Cardiology evaluation. Additionally, your slot ambassador will recommend testing to screen for coronary artery disease. This will be scheduled for you after your cardiology visit. 4. Your coordinator will be requesting record from your last dental visit, colonoscopy and EGD. 5. Please work to complete social work recommendations. Your social services director will be contacting you to follow up on your progress. 6. You have also been referred for a kidney transplant. An appointment will be scheduled for you sari evaluated in the kidney transplant clinic after you have satisfied requirements dictated by [facility]. Once your testing is complete, we will [...] ___ Other Name MRN * Christin Elizabeth, 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 - 10/19/2018 9:00 AM EST Formatting of this note may be different from the original. History of Present Illness: Chief Complaint Patient presents with Follow-up Cirrhosis George Styles is a 48 y.o. male who presents to the [facility] today regarding his diagnosis/chief complaint(s) of Cirrhosis secondary to ETOH, with ESRD follows with Dr. Orr. Currently undergoing evaluation for liver/kidney transplant. Has been seen in transplant clinic for eval. Still undergoing pre testing. Diagnosed in April 2018. Last drink was immediately prior to hospital admission in [place] for ACLF. Hospital course notable for ARF [...] (human immunodeficiency virus infection); Hyperlipidemia; Hyperthyroidism; Hypothyroidism; ID (myocardial infarction); Migraine; DARLENE (obstructive sleep apnea); [...] kidney transplant evaluation. Pt was AOx3. Transplant Bicycle Inspector role/function was explained and reviewed. The patient was informed that the results of this assessment will be shared with the referring provider and the transplant team. The patient verbalized understanding of this information. The [facility] psychosocial assessment consent form has been explained to patient and has been signed. Pt is completing this evaluation with brother (David) in the Outpatient setting. SWK educated pt on the benefits of completing/filing advanced directives and resources were offered. Pt identifies with TEMPLE jain. Pt confirms being a [place] Citizen. Pt.'s primary language is Finnish. Pt confirms the ability to read,write, and understand Finnish. Pt denies potential donors. Donor cards and [...] has valid license, does not regularly drive (TURNTABLE MAN recommends that he not to drive). He [...] organ related disease etoh cirrohosis April in [facility] for thirty days. Pt reports [...] as well as referred him to pre oncology coordinator. Pt and support demonstrated moderate understanding [...] brother David is a self employed contractor field hauling. Additional support includes his other brother Tyshawn and his Mary live fifteen minutes away. Of note Mary is a prn occupational therapist for a [employer] is available to assist apartment leasing consultant. He confirms being comfortable asking for help. [...] in 2010, he was employed by the [employer]. He has access to SSDI payment (SSDI starts in November) in regards to financial means pre/ post-transplant. Pt confirms (meeting bills currently, ) being able to meet daily needs. Patient's brother asking for additional information on community resources, food stamps and Heap. Refer him to pt.'s dialysis center and the [facility]. Hereports access to Medicaid. Pt. denies [...] court ordered treatment after a DUI charge [facility] in [place], court ordered treatment in 2001 and in [...] by patient from his primary medical provider- TURNTABLE MAN patient was noted as attending an alcohol [...] new visit Date of service: 10/12/2018 -Referring land inspector for today's consult: -Primary Care Provider: Zuly [...] processes progressing rapidly Unknown * Elisa Tiwari, WEIGHT LOSS SALES CONSULTANT - 10/12/2018 10:00 AM EST Timed up and go 9.9 seconds Mail Delivery Supervisor Left 52.8 pounds Right 44.9 pounds Waist circ 38.5 inches * Sophie Cary, RN - 10/12/2018 10:00 AM EST Formatting of this note may be different from the original. Patient George Styles ([id number]), accompanied by his brother, was seen on [...] any further questions. Sophie GUERINN, RN Liver Blacksmith Helper Etiology: ETOH HCC: No ETOH: Yes Last [...] RUQ/LIVER/GB Yovani Orr MD [address] [address] Status Reason Specialty Diagnoses / Procedures Referred By Contact Referred To Contact New Request Diagnoses Cirrhosis of liver with ascites, unspecified hepatic cirrhosis type Procedures US ABDOMEN RUQ/LIVER/GB Yovani Orr MD [address] [address] Specialty Diagnoses / Procedures Referred By Contac t Referred To Contact Diagnoses FAYE (acute kidney injury) Procedures CT ABDOMEN/PELVIS WITHOUT CONTRAST CHG CT SCAN,ABDOMENT AND PELVIS,W/O CONTRAST Central Scheduling [address] [place] [address] Referral ID Status Reason Start Date Expiration Date V isits Requested Visits Authorized [id number] Pending Review 05/16/2022 06/10/2023 1 1 Specialty Diagnoses / Procedures Referred By Contac t Referred To Contact Diagnoses Other hydronephrosis Procedures FLUORO IMAGING FOR UROLOGY Ryan Hurt MD [address] [facility] [address] [place] [address] Referral ID Status Reason Start Date Expiration Date V isits Requested Visits Authorized [id number] New Request 07/07/2022 08/01/2023 1 1 Specialty Diagnoses / Procedures Referred By Contac t Referred To Contact Procedures DIRECT ADMIT REQUEST Steve Latham MBBS [address] [place] [address] Referral ID Status Reason Start Date Expiration Date V isits Requested Visits Authorized [id number] New Request 08/28/2023 09/21/2024 1 1 Specialty Diagnoses / Procedures Referred By Contac t Referred To Contact Radiology Diagnoses DARLENE (obstructive sleep apnea) Primary hypertension (CMS/HCC) Bilateral lower extremity edema Shortness of breath Procedures Echocardiogram 2D complete Zuly Bruno NP [address] [place] [address] Referral ID Status Reason Start Date Expiration Date Visits Requested Visits Authorized [id number] Incomplete Perform Procedure 01/06/2024 07/04/2024 1 1 Specialty Diagnoses / Procedures Referred By Contac t Referred To Contact Procedures US IMAGING REGIONAL ANESTHESIA Kehinde Gutierrez MD [address] [place] [address] Referral ID Status Reason Start Date Expiration Date V isits Requested Visits Authorized [id number] New Request 01/22/2024 02/15/2025 1 1 Specialty Diagnoses / Procedures Referred By Contac t Referred To Contact Cardiovascular Medicine Diagnoses Heart failure, diastolic, acute Kelvin Pacheco MD, MBBS [address] [place] [address] Referral ID Status Reason Start Date Expiration Date V isits Requested Visits Authorized [id number] New Request 01/20/2024 02/13/2025 1 1 Specialty Diagnoses / Procedures Referred By Contac t Referred To Contact Procedures US ABDOMEN LIVER DOPPLER US ABDOMEN LIVER TRANSPLANT DOPPLER Timothy Joseph MD [address] [facility] [address] [place] [address] Referral ID Status Reason Start Date Expiration Date V isits Requested Visits Authorized [id number] New Request 01/16/2024 02/09/2025 1 1 Specialty Diagnoses / Procedures Referred By Contac t Referred To Contact Procedures DVT/VTE RISK ASSESSMENT Kelvin Pacheco MD, MBBS [address] [place], [place] [id number] Referral ID Status Reason Start Date Expiration Date V isits Requested Visits Authorized [id number] New Request 01/16/2024 02/09/2025 1 1 Specialty Diagnoses / Procedures Referred By Contac t Referred To Contact Procedures PLATELET MONITORING PER PROTOCOL Kelvin Pacheco MD, MBBS [address] [place] [address] Referral ID Status Reason Start Date Expiration Date V isits Requested Visits Authorized [id number] New Request 01/16/2024 02/09/2025 1 1 Referral ID Status Reason Start Date Expiration Date V isits Requested Visits Authorized [id number] New Request 01/16/2024 02/09/2025 1 1 Specialty Diagnoses / Procedures Referred By Contac t Referred To Contact Procedures ECG Kelvin Pacheco MD, MBBS [address] [place] [address] Referral ID Status Reason Start Date Expiration Date V isits Requested Visits Authorized [id number] New Request 01/16/2024 02/09/2025 1 1 Advance Directives Documents on File Type Date Recorded Patient Sort Line Worker Expl anation Advance Directives and Living Will Power of Dietetic Intern Latest Code Status on File Code Status [...] Yovani Orr MD [address] [address] Status Reason Specialty Diagnoses / Procedures Referre d By Contact Referred To Contact Denied Diagnoses Alcoholic cirrhosis, unspecified whether ascites present Pre-transplant evaluation for liver transplant Procedures MRI ABDOMEN WITH CONTRAST NE MRI, ABDOMEN W/CONTRAST Yovani Orr MD [address] [address] Reason Comments Liver Recipient Evaluation Status Reason Specialty Diagnoses / Procedures Referred By Contact Referred To Contact New Request Transplant / Transplant Surgery Procedures PRE NEW PATIENT Yovani Orr MD [address] [address] Alfredito Restrepo MD [address] [place] [address] Reason Comments Reschedule Reason Comments Outside Medical Records Request Reason Comments Social Work Follow-up Reason Comments Kidney Stone Specialty Diagnoses / Procedures Referred By Deni edwards Referred To Contact Diagnoses Obstructing kidney stone, s/p kidney transplant 2019 Daya Saldana MD [address] [place] [address] [facility] [address] [place] [address] Referral ID Status Reason Start Date Expiration Date Visits Re quested Visits Authorized [id number] 1 1 Reason Comments Follow-up Reason Comments Kidney Recipient Follow-up Liver Recipient Follow-up Reason Comments Consult Reason Comments New Patient Hospital follow up Specialty Diagnoses / Procedures Referred By Deni edwards Referred To Contact Urology Diagnoses hosp fu with [address] prior Procedures NEW TO DOC/RET PATIENT Zuly Bruno, TURNTABLE MAN [address] [place] [address] Ryan Hurt MD [address] [facility] [address] [place] [address] Referral ID Status Reason Start Date Expiration Date Visits Re quested Visits Authorized [id number] Closed 06/27/2022 07/22/2023 1 1 Specialty Diagnoses / Procedures Referred By Contac t Referred To Contact Diagnoses FAYE (acute kidney injury) Procedures CT ABDOMEN/PELVIS WITHOUT CONTRAST CHG CT SCAN,ABDOMENT AND PELVIS,W/O CONTRAST Central Scheduling [address] [place] [address] Referral ID Status Reason Start Date Expiration Date V isits Requested Visits Authorized [id number] Pending Review 05/16/2022 06/10/2023 1 1 Reason Comments Follow-up Specialty Diagnoses / Procedures Referred By Contac t Referred To Contact Urology Diagnoses 1 week fu post NT clamp Procedures RETURN PATIENT Zuly Bruno, TURNTABLE MAN [address] [place] [address] Ryan Hurt MD [address] [facility] [address] [place] [address] Referral ID Status Reason Start Date Expiration Date Visits Requested Visits Authorized [id number] Authorized - 07/07/2022 08/01/2023 2 2 Specialty Diagnoses / Procedures Referred By Contac t Referred To Contact Diagnoses Other hydronephrosis Procedures FLUORO IMAGING FOR UROLOGY Ryan Hurt MD [address] [facility] [address] [place] [address] Referral ID Status Reason Start Date Expiration Date V isits Requested Visits Authorized [id number] New Request 07/07/2022 08/01/2023 1 1 Specialty Diagnoses / Procedures Referred By Contac t Referred To Contact Urology Diagnoses 1 week fu post NT clamp Procedures RETURN PATIENT Zuly Bruno, TURNTABLE MAN [address] [place] [address] Ryan Hurt MD [address] [facility] [address] [place] [address] Referral ID Status Reason Start Date Expiration Date Visits Re quested Visits Authorized [id number] Closed 07/07/2022 08/01/2023 2 2 Reason Comments Liver Recipient Follow-up Reason Comments Kidney Recipient Follow-up Reason Comments Kidney Recipient Follow-up Specialty Diagnoses / Procedures Referred By Contac t Referred To Contact Diagnoses Kidney replaced by transplant Steve Latham MBBS [address] [place] [address] [facility] [address] [place] [address] Referral ID Status Reason Start Date Expiration Date Visits Re quested Visits Authorized [id number] 1 1 Specialty Diagnoses / Procedures Referred By Contac t Referred To Contact Diagnoses Pleural effusion on right PNEUMONIA- HX LIVER AND KIDNEY TRANSPLANT Kevin Prince MD [address] [place] [address] [facility] [address] [place] [address] Referral ID Status Reason Start Date Expiration Date Visits Re quested Visits Authorized [id number] 1 1 Reason Comments New Patient Specialty Diagnoses / Procedures Referred By Contac t Referred To Contact Cardiovascular Medicine Diagnoses Heart failure, diastolic, acute Kelvin Pacheco MD, MBBS [address] [place] [address] Referral ID Status Reason Start Date Expiration Date Visits Requested Visits Authorized [id number] Authorized - 01/20/2024 02/13/2025 5 5 (unrecognized sect ion and content) No Status Records FoundNo Status Records FoundNo Status Records FoundNo Status Records FoundNo Status Records FoundNo Status Records Found INFORMATION SOURCE (unrecogn ized section and content) DATE CREATED AUTHOR 01/07/2020 [facility] DATE CREATED AUTHOR AUTHOR'S ORGANIZ ATION 01/27/2021 [facility] DATE CREATED AUTHOR AUTHOR'S ORGANIZ ATION 04/13/2023 [facility] DATE CREATED AUTHOR AUTHOR'S ORGANIZ ATION 05/11/2023 [facility] DATE CREATED AUTHOR AUTHOR'S ORGANIZ ATION 03/25/2024 [facility] EPIC DATE CREATED AUTHOR AUTHOR'S ORGANIZ ATION 03/29/2024 [facility] Care Teams (unrecognized sec tion and content) Custom Motorcycle Painter Relationship Specialty Start Date End Date Zuly Bruno CNP PCP - General 07/19/18 Comfort Rivera, [facility] [address] [facility] [address] [place] [phone] Pharmacist Pharmacist 05/16/20 Angel Carpio RP,PharmD Pharmacist Pharmacist 05/16/20 Te Leigh RP,PharmD Pharmacist Pharmacist 01/09/21 Custom Motorcycle Painter Relationship Specialty Start Date End Date Zuly Bruno CNP PCP - General 07/19/18 Comfort Rivera, [facility] [address] [facility] [address] [place] [address] Pharmacist Pharmacist 05/16/20 Angel Carpio RP,PharmD Pharmacist Pharmacist 05/16/20 Te Leigh [facility],PharmD Pharmacist Pharmacist 01/09/21 Custom Motorcycle Painter Relationship Specialty Start Date End Date Zuly Bruno CNP PCP - General 07/19/18 Custom Motorcycle Painter Relationship Specialty Start Date End Date Zuly Bruno CNP PCP - General 07/19/18 Custom Motorcycle Painter Relationship Specialty Start Date End Date Zuly Bruno CNP PCP - General 07/19/18 Custom Motorcycle Painter Relationship Specialty Start Date End Date Zuly Bruno CNP PCP - General 07/19/18 Custom Motorcycle Painter Relationship Specialty Start Date End Date Zuly Bruno CNP PCP - General 07/19/18 Custom Motorcycle Painter Relationship Specialty Start Date End Date Zuly Bruno CNP PCP - General 07/19/18 Custom Motorcycle Painter Relationship Specialty Start Date End Date Zuly rBuno CNP PCP - General 07/19/18 Custom Motorcycle Painter Relationship Specialty Start Date End Date Zuly Bruno CNP PCP - General 07/19/18 Custom Motorcycle Painter Relationship Specialty Start Date End Date Zuly Bruno CNP PCP - General 07/19/18 Custom Motorcycle Painter Relationship Specialty Start Date End Date Zuyl Bruno CNP PCP - General 07/19/18 Custom Motorcycle Painter Relationship Specialty Start Date End Date Zuly Bruno CNP PCP - General 07/19/18 Custom Motorcycle Painter Relationship Specialty Start Date End Date Zuly Bruno CNP PCP - General 07/19/18 Custom Motorcycle Painter Relationship Specialty Start Date End Date Zuly Bruno CNP PCP - General 07/19/18 Custom Motorcycle Painter Relationship Specialty Start Date End Date Zuly Bruno CNP PCP - General 07/19/18 Custom Motorcycle Painter Relationship Specialty Start Date End Date KristopherlydialatishaZuly tipton CNP PCP - General 07/19/18 Evan White DO [address] [place] [address] Infectious Disease Infectious Disease 09/09/23 Custom Motorcycle Painter Relationship Specialty Start Date End Date Zuly Bruno CNP PCP - General 07/19/18 Evan White DO [address] [place] [address] Infectious Disease Infectious Disease 09/09/23 Custom Motorcycle Painter Relationship Specialty Start Date End Date Zuly Bruno CNP PCP - General 07/19/18 Evan White DO [address] [place] [address] Infectious Disease Infectious Disease 09/09/23 Custom Motorcycle Painter Relationship Specialty Start Date End Date Momo Verdugo MD PCP - General Family Medicine 05/21/23 Custom Motorcycle Painter Relationship Specialty Start Date End Date Momo Verdugo MD PCP - General Family Medicine 05/21/23 Custom Motorcycle Painter Relationship Specialty Start Date End Date Momo Verdugo MD PCP - General Family Medicine 05/21/23 Custom Motorcycle Painter Relationship Specialty Start Date End Date Zuly Bruno CNP PCP - General 07/19/18 Evan White DO [facility] [place] [address] Infectious Disease Infectious Disease 09/09/23 Custom Motorcycle Painter Relationship Specialty Start Date End Date Zuly Bruno CNP PCP - General 07/19/18 Evan White DO [facility] [place] [address] Infectious Disease Infectious Disease 09/09/23 Custom Motorcycle Painter Relationship Specialty Start Date End Date Zuly Bruno CNP PCP - General 07/19/18 Evan White DO [facility] [place] [address] Infectious Disease Infectious Disease 09/09/23 Custom Motorcycle Painter Relationship Specialty Start Date End Date Zuly Bruno CNP PCP - General 07/19/18 Evan White DO [address] [place] [address] Infectious Disease Infectious Disease 09/09/23 Custom Motorcycle Painter Relationship Specialty Start Date End Date Zuly Bruno CNP PCP - General 07/19/18 Evan White DO [address] [place] [address] Infectious Disease Infectious Disease 09/09/23 Custom Motorcycle Painter Relationship Specialty Start Date End Date Zuly Bruno CNP PCP - General 07/19/18 Custom Motorcycle Painter Relationship Specialty Start Date End Date Zuly Bruno CNP PCP - General 07/19/18 Scheduled Active and Recently Administ ered Medications [...] RN) 1501 (Given - Provider: Leon Cook, SMAI) benzocaine-menthol (CEPACOL) 15-3.6 MG per lozenge 1 [...] 2100, Until Discontinued 2035 (Given - Provider: iGrish Nunez RN) 2024 (Given - Provider: Carolyn [...] Heart RN) 0958 (Given - Provider: Cheyanne Mcdnoough RN) Sulfamethoxazole-trime thoprim (BACTRIM DS) 800-160 MG [...] Procedural area)1414 (JAN Unhold - Provider: Automatic Transfer)180 (Given [...] RN) 0842 (Given - Provider: Terra Heart RN)105 ([place] [...] RN) 0841 (Given - Provider: Terra Heart RN)105 (JAN Hold - Provider: Automatic Transfer - [...] 0846 (Given - Provider: Terra Heart RN)1052 (JAN Hold - Provider: Automatic Transfer - [...] (Given - Provider: Erica Gudino RN) 1052 (JAN Hold - Provider: Automatic Transfer - [...] 0016, Until 01/23/24 at 1752, Insomnia 1053 (MAR Hold - Provider: Automatic Transfer [...] 01/23/24 at 1752, Constipation 1st Line 1053 ([facility] Hold - Provider: Automatic Transfer - Reason: Transfer to a Procedural area)1414 ([facility] Unhold - Provider: Automatic Transfer) Prochlorperazine (COMPAZINE) injection 10 mg 10 mg, Intravenous, EVERY 6 HOURS NEEDED, Starting on 01/17/24 at 1538, Until 01/23/24 at 1752, Nausea / Vomiting, Refractory Nausea Vomiting, For IV route: dilute dose with 10mL normal saline and give by slow IV push at a rate of 5mg/min. Maximum of 40mg/day. 1053 ([facility] Hold - Provider: Automatic Transfer - Reason: Transfer to a Procedural area)1414 ([facility] Unhold - Provider: Automatic Transfer)2349 (Given - [...] the intermittent or piggy back medication. 1053 ([facility] Hold - Provider: [...] BE BASED ON THE PRIMARY CLINICAL RECORDS. [facility]. provides no warranty or guarantee of the accuracy or completeness of information in this document.
[2024-04-04 07:09] LABS: Creatinine Urine Random 126.97 mg/dL (20.00-300.00); Protein Creatinine Ratio Urine 0.12; Total Protein Urine Random 15.4 mg/dL (<=11.9)
[2024-04-04 07:10] LABS: Basophils Percent Auto 0.9 % (0.2-2.0); Eosinophils Absolute Auto 0.2 10^3/uL (0.0-0.7); Eosinophils Percent Auto 3.7 % (0.9-7.0); Hematocrit 45.8 % (42.0-54.0); Hemoglobin 14.6 g/dL (14.0-18.0); Immature Granulocytes Abs Auto 0.01 10^3/uL (0.00-0.03); Immature Granulocytes Pct Auto 0.2 % (0.0-0.5); Lymphocytes Absolute Auto 1.6 10^3/uL (1.2-3.8); Lymphocytes Percent Auto 37.2 % (20.5-60.0); Mean Corpuscular HGB Conc 31.9 g/dL (29.9-35.2); Mean Corpuscular Hemoglobin 28.7 pg (25.9-34.0); Mean Corpuscular Volume 90.2 fL (80.0-94.0); Mean Platelet Volume 9.8 fL (9.5-13.5); Monocytes Absolute Auto 0.4 10^3/uL (0.3-0.8); Monocytes Percent Auto 10.2 % (1.7-12.0); Neutrophils Absolute Auto 2.1 10^3/uL (1.4-6.5); Neutrophils Percent Auto 47.8 % (43.0-75.0); Platelet Count 236 10^3/uL (150-450); Red Blood Count 5.08 10^6/uL (4.70-6.10); Red Cell Distribution Width 14.2 % (11.0-15.0); White Blood Count 4.3 10^3/uL (4.0-11.0)
[2024-04-04 09:21] LABS: Alanine Aminotransferase 34 U/L (16-63); Alkaline Phosphatase 141 U/L (46-116); Anion Gap 14.1; Aspartate Amino Transferase 26 U/L (15-37); BUN Creatinine Ratio 14.1; Bilirubin Direct 0.2 mg/dL (0.0-0.2); Bilirubin Total 1.1 mg/dL (0.2-1.0); Calcium 9.9 mg/dL (8.5-10.1); Carbon Dioxide 25.7 mmol/L (21.0-32.0); Chloride 105 mmol/L (98-107); Chol HDL Ratio 3.3; Cholesterol 137 mg/dL (<=200); Estimated GFR (African America >60 (>=60); Estimated GFR (Non-African Ame 59 (>=60); Gamma Glutamyl Transpeptidase 24 U/L (15-85); Glucose 104 mg/dL (74-106); HDL Cholesterol 41 mg/dL (40-60); LDL Cholesterol Calculated 77.6 mg/dL; Potassium 3.8 mmol/L (3.5-5.1); Sodium 141 mmol/L (136-145); Triglycerides 92 mg/dL (<=150); VLDL CHOLESTEROL 18.4 mg/dL
[2024-04-06 20:08] LABS: Tacrolimus (FK506), Blood 3.6 ng/mL (2.0-20.0)
== END 2024-04-04 06:44 | disposition home or self-care (01) ==
LOC: LAB 06:45
PROVIDERS: PCP Nurse Practitioner
DX: R79.9 Abnormal finding of blood chemistry, unspecified (principal); Z94.0 Kidney transplant status; Z94.4 Liver transplant status; Z48.298 Encounter for aftercare following other organ transplant
CPT/HCPCS: 36415; 80048; 80061; 80197; 82042; 82247; 82248; 82570; 82977; 83735; 84075; 84156; 84450; 84460; 85025

== ENCOUNTER 2024-04-11 06:48 | Outpatient (OUT) | payer MEDICARE, MEDICAID, SELFPAY ==
--- OUTSIDE RECORDS SUMMARY | 2024-04-11 06:57 | XMS_ITS | CCD ---
Author Organization [facility] Care Team Providers Care Customer Field Representative Name Role Phone Kiana Zuly Unavailable Unavailable [...] Unavailable AICHHOLZ, ZULY Primary Care Unavailable Aichholz [facility], [facility] Primary Care Provider [phone] Miguel [facility] Un[facility] [phone] Shirin [facility],PharmD, Angel Unavailable Unavailab makayla Leigh [facility],PharmD, Te Unavailable Unavai lable Aicholz [facility], [facility] Primary Care Provider MIGUEL CARDONA Attending Unavailable MISC, DR BURCH Admitting Unavailable MISC, DR BURCH Consulting Unavailable AICHHOLZ, TOURIST INFORMATION OFFICER ZULY Primary Care Unavailable MISC, DR BURCH Attending Unavailable MISC, DR BURCH Admitting Unavailable MISC, DR BURCH Consulting Unavailable AICHHOLZ, TOURIST INFORMATION OFFICER ZULY Primary Care Unavailable MISC, DR BURCH Attending Unavailable ARCELIA PIZARRO Consulting Unavailable KE BURNHAM Attending Unavailable KE BURNHAM Admitting Unavailable BARBARA, DR MÓNICA Munoz Consulting Unavailable AICHHOLZ, TOURIST INFORMATION OFFICER ZULY Primary Care Unavailable KE BURNHAM Consulting Unavailable MISC, DR BURCH Consulting Unavailable MISC, DR BURCH Attending Unavailable AICHHOLZ, TOURIST INFORMATION OFFICER ZULY Primary Care Unavailable MISC, DR BURCH Admitting Unavailable MISC, DR DOCTOR Consulting Unavailable MISC, DR DOCTOR Attending Unavailable AICHHOLZ, TOURIST INFORMATION OFFICER ZULY Primary Care Unavailable MISC, DOCTOR Admitting Unavailable MISC, DR DOCTOR Consulting Unavailable AICHHOLZ, TOURIST INFORMATION OFFICER ZULY Primary Care Unavailable MISC, DR DOCTOR Admitting Unavailable MISC, DR DOCTOR Attending Unavailable MELINDA, DR EGORGE Munoz Consulting Unavailable MELINDA, DR GEORGE Munoz Attending Unavailable AICHHOLZ, TOURIST INFORMATION OFFICER ZULY Primary Care Unavailable MELINDA, DR GEORGE Munoz Admitting Unavailable NAUN ., KE Consulting Unavailable MIRANDA, LYNDSAY Consulting Unavailable MELINDA, DR GEORGE Munoz Consulting Unavailable NAUN ., KE Attending Unavailable NAUN ., KE Admitting Unavailable AICHHOLZ, TOURIST INFORMATION OFFICER ZULY Primary Care Unavailable NAUN ., KE Consulting Unavailable GIAN HERRING Consulting Unavailable AICHHOLZ, TOURIST INFORMATION OFFICER ZULY Consulting Unavailable AICHHOLZ, TOURIST INFORMATION OFFICER ZULY Attending Unavailable AICHHOLZ, TOURIST INFORMATION OFFICER ZULY Admitting Unavailable AICHHOLZ, TOURIST INFORMATION OFFICER ZULY Primary Care Unavailable MISC, DR DOCTOR Consulting Unavailable MISC, DOCTOR Admitting Unavailable MISC, DR DOCTOR Attending Unavailable AICHHOLZ, TOURIST INFORMATION OFFICER ZULY Primary Care Unavailable MISC, DR DOCTOR Consulting Unavailable MISC, DR DOCTOR Attending Unavailable MISC, DR DOCTOR Admitting Unavailable AICHHOLZ, TOURIST INFORMATION OFFICER ZULY Primary Care Unavailable MISC, DOCTOR Admitting Unavailable MISC, DR DOCTOR Consulting Unavailable MISC, DR DOCTOR Attending Unavailable AICHHOLZ, TOURIST INFORMATION OFFICER ZULY Primary Care Unavailable MISC, DR DOCTOR Admitting Unavailable MISC, DR DOCTOR Consulting Unavailable AICHHOLZ, TOURIST INFORMATION OFFICER ZULY Primary Care Unavailable MISC, DR DOCTOR Attending Unavailable MISC, DR DOCTOR Admitting Unavailable MISC, DR DOCTOR Consulting Unavailable AICHHOLZ, TOURIST INFORMATION OFFICER ZULY Primary Care Unavailable MISC, DR DOCTOR Attending Unavailable AICHHOLZ, TOURIST INFORMATION OFFICER ZULY Consulting Unavailable AICHHOLZ, TOURIST INFORMATION OFFICER ZULY Attending Unavailable AICHHOLZ, TOURIST INFORMATION OFFICER ZULY Admitting Unavailable AICHHOLZ, TOURIST INFORMATION OFFICER ZULY Primary Care Unavailable DR MÓNICA JIMENEZ Consulting Unavailable Aichholz [facility], Zuly Primary Care Provider Tran White DOs Tray Unavailable Aichholz [facility], Zuly Primary Care Provider Tran White DOs A Unavailable [phone] Momo Verdugo MD Primary Care Provider [phone] AICHHOLZ, ZULY Attending Unavailable AICHHOLZ, ZULY Attending [...] Referring Unavailable AICHHOLZ, ZULY Attending Unavailable Aichholz TOURIST INFORMATION OFFICER, Zuly Primary Care Provider AICHHOLZ, ZULY Primary Care Unavailable HAKEEM ALAMO [...] adverse reactions (disorder) 8 [facility] Repository (20 sources) Shellfish-Derive d Products Propensity to adverse reactions to drug 9 [facility] (1 source) Shellfish Drug allergy (disorder) [facility] Repository Medications Current Medications Medication [...] Start: 12-30-2021 take 2 tablets by mo [facility] once daily allopurinol 100 MG [...] 1 capsule by mouth once daily b wpzcuca-J-yqulv acid (NEPHROCAPS) 1 MG capsule Take 1 [...] ankle pain. 0 06/12/2020 06/12/2023 Discontinued lactulose 88644 mg powder for oral solution (19 sources) [...] itraconazole Fax results to: Dr. White - [phone] Trans[facility] - [phone] Each 09/10/2023 01/19/2024 Discontinued (Medication Reconciliation (suppress cancel msg)) Start: 09-10-2023 CUSTOM MEDICAT ION Labs to be obtained: 1- Tacrolimus level, trough - collect twice weekly until 09/24/23, then weekly until 10/08/23, them once every two weeks there after. 2- Itraconazole level - obtain once between 09/14-09/18. 3- Chem 6 - Obtain weekly while on itraconazole Fax results to: Dr. White - [phone] Trans[facility] - [phone] Each 0 09/10/2023 Active Diatrizoate (1 [...] 01/16/2023 Discontinued take 2 tablets by mo [facility] in the morning magnesium oxide (Mag-Ox) 400 MG tablet Take 2 tablets by mouth in the morning. 0 Active take [facility] tablet [facility] daily magnesium oxide (MAG-OX) 400 [...] (ROXICODONE) tablet 10 mg polyethylene glycol 3350 04175 mg powder for oral solution (20 sources) [...] Coronary arteriosclerosis; Translations: [Atherosclerotic heart disease of knik coronary artery without angina pectoris] Onset: 3 [...] [Other correction (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] Episodic Other and ill-defined [...] 05-10-2020 Episodic Other aftercare (2 sources) Other correction (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; Translations: [OTH [facility]DC 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 THERAPY] Onset: 07-06-2022 Episodic Other aftercare (1 source) FDC (current) use of 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; 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] Onset: 06-20-2022 Episodic [...] transplant] Onset: 08-28-2023 Unclassified (1 source) Other correction (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; Translations: [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] Onset: 08-28-2023 Unclassified (1 source) Hypertension secondary to other renal disorders; Translations: [Hypertension secondary to other renal disorders] Onset: 08-28-2023 Results Test Name Value Interpretation Reference Range Facility B-TYPE NATRIURETIC PEPTIDE ( BRAIN)on 02-26-2024 Natriuretic peptide B (Bld) [Mass/Vol] 72 pg/mL Normal 0-100 [facility] Comment on above: Performed By: #### B EMS INSTRUCTOR ####[facility] (DEFAULT)[address] [place] [address] Interpretation and review of laboratory results Normal [facility] Natriuretic peptide B (Bld) [Mass/Vol] 72 pg/mL 0 - 100 pg/mL [facility] CHEM 6 (LYTES, BUN CREA)on 0 02-26-2024 Anion gap [Moles/Vol] 13 mmol/L Normal 7-17 [facility] Comment on above: Performed By: #### C HM6 ####[facility] (DEFAULT)[address] [place] [address] Chloride [Moles/Vol] 107 mmol/L Normal 98-108 [facility] Comment on above: Performed By: #### C HM6 ####[facility] (DEFAULT)[address] [place] [address] CO2 [Moles/Vol] 25 mmol/L Normal 21-31 [facility] Comment on above: Performed By: #### C HM6 ####[facility] (DEFAULT)[address] [place], [place] [address], [place] [address] Creatinine [Mass/Vol] 1.23 mg/dL Normal 0.70-1.30 [facility] Comment on above: Performed By: #### C HM6 ####[facility] (DEFAULT)[address] [place] [address], [place] [address] GFR/1.73 sq M.predicted among non-blacks MDRD (S/P/Bld) [Vol rate/Area] 70 mL/min/{1.73_m2} Normal >=60 [facility] Comment on above: Result Comment: Repo rted eGFR is based on the CKD-EPI 2020 equation using creatinine, age, and sex. Performed By: #### C HM6 ####[facility] (DEFAULT)[address] [place] [address] Potassium [Moles/Vol] 4.2 mmol/L Normal 3.5-5.0 [facility] Comment on above: Performed By: #### C HM6 ####[facility] (DEFAULT)[address] [place] [address] Sodium [Moles/Vol] 141 mmol/L Normal 135-145 [facility] Comment on above: Performed By: #### C HM6 ####[facility] (DEFAULT)[address] [place], [place] [address], [place] [address] Urea nitrogen [Mass/Vol] 17 mg/dL Normal 7-25 [facility] Comment on above: Performed By: #### C HM6 ####[facility] (DEFAULT)[address] [place] [address] Urea nitrogen/Creatinine [Mass ratio] 14 mg/mg Normal [facility] Comment on above: Performed By: #### C HM6 ####[facility] (DEFAULT)[address] [place] [address] Anion gap [Moles/Vol] 13 mmol/L 7 - 17 mmol/L [facility] Chloride [Moles/Vol] 107 mmol/L 98 - 10 8 mmol/L [facility] CO2 [Moles/Vol] 25 mmol/L 21 - 31 mmol/L [facility] Creatinine [Mass/Vol] 1.23 mg/dL 0.70 - 1.30 mg/dL [facility] eGFR, CKD-EPI, Male 70 - PINF [facility] Comment on above: Reported eGFR is bas ed on the CKD-EPI 2020 equation using creatinine, age, and sex. Potassium [Moles/Vol] 4.2 mmol/L 3.5 - 5.0 mmol/L [facility] Sodium [Moles/Vol] 141 mmol/L 135 - 145 mmol/L [facility] Urea nitrogen [Mass/Vol] 17 mg/dL 7 - 25 mg/dL [facility] Urea nitrogen/Creatinine [Mass ratio] 14 mg/mg [facility] CBC,PLATELETSon 01-23-2024 Hematocrit (Bld) [Volume fraction] 37.0 % Low 39.6-48.8 [facility] Comment on above: Performed By: #### H [facility] ####[facility] (DEFAULT)[address] [place] [address] Hemoglobin (Bld) [Mass/Vol] 12.0 g/dL Low 13.4-16.8 [facility] Comment on above: Performed By: #### H [facility] ####[facility] (DEFAULT)[address] [place] [address] MCV (RBC) [Entitic vol] 88.1 fL Normal 79.0-94.5 [facility] Comment on above: Performed By: #### H EMOGC ####[facility] (DEFAULT)[address] [place] [address] Mean Cell Hgb 28.6 pg Normal 26.1-33.3 [facility] Comment on above: Performed By: #### H EMOGC ####[facility] (DEFAULT)[address] [place] [address] Mean Cell Hgb Conc 32.4 g/dL Normal 31.9-36.5 [facility] Comment on above: Performed By: #### H EMOGC ####[facility] (DEFAULT)[address] [place] [address] Platelet mean volume (Bld) [Entitic vol] 10.4 fL Normal 8.7-12.3 [facility] Comment on above: Performed By: #### H EMOGC ####[facility] (DEFAULT)[address] [place] [address], [place] [address] Platelets (Bld) [#/Vol] 170 10*3/uL Normal 146-337 [facility] Comment on above: Performed By: #### H EMOGC ####[facility] (DEFAULT)[address] [place] [address] RBC (Bld) [#/Vol] 4.20 10*6/uL Low 4.38-5.83 [facility] Comment on above: Performed By: #### H EMOGC ####[facility] (DEFAULT)[address] [place] [address] RBC Distribution 14.2 % Normal 10.9-14.3 [facility] Comment on above: Performed By: #### H EMOGC ####[facility] (DEFAULT)[address] [place] [address] WBC (Bld) [#/Vol] 3.70 10*3/uL Low 3.73-10.10 [facility] Comment on above: Performed By: #### H [facility] ####[facility] (DEFAULT)[address] [place] [address] Erythrocyte distribution width (RBC) [Ratio] 14.2 % 10.9 - 14.3 % [facility] Hematocrit (Bld) [Volume fraction] 37.0 % Low 39.6 - 48.8 % [facility] Hemoglobin (Bld) [Mass/Vol] 12.0 g/dL Low 13.4 - 16.8 g/dL [facility] Interpretation and review of laboratory results Abnormal [facility] MCH (RBC) [Entitic mass] 28.6 pg 26.1 - 33.3 pg [facility] MCHC (RBC) [Mass/Vol] 32.4 g/dL 31.9 - 36.5 g/dL [facility] MCV (RBC) [Entitic vol] 88.1 fL 79.0 - 94.5 fL [facility] Platelet mean volume (Bld) [Entitic vol] 10.4 fL 8.7 - 12.3 fL [facility] Platelets (Bld) [#/Vol] 170 10*3/uL 146 - 337 K/uL [facility] RBC (Bld) [#/Vol] 4.20 10*6/uL Low [facility] WBC (Bld) [#/Vol] 3.70 10*3/uL Low 3.73 - 10. 10 K/uL [facility] CHEM 7 (LYTES,BUN,CREA,GLUC) on 01-23-2024 Anion gap [Moles/Vol] 14 mmol/L Normal 7-17 [facility] Comment on above: Performed By: #### M GO, CHM7, [facility] ####[facility] (DEFAULT)[address] [place] [address] Chloride [Moles/Vol] 105 mmol/L Normal 98-108 [facility] Comment on above: Performed By: #### NATHANIEL RAMÍREZ, HFP ####[facility] (DEFAULT)[address] [place] [address] CO2 [Moles/Vol] 25 mmol/L Normal 21-31 [facility] Comment on above: Performed By: #### NATHANIEL RAMÍREZ, HFP ####[facility] (DEFAULT)[address] [place] [address] Creatinine [Mass/Vol] 1.32 mg/dL High 0.70-1.30 [facility] Comment on above: Performed By: #### NATHANIEL RAMÍREZ, HFP ####[facility] (DEFAULT)[address] [place] [address] GFR/1.73 sq M.predicted among non-blacks MDRD (S/P/Bld) [Vol rate/Area] 65 mL/min/{1.73_m2} Normal >=60 [facility] Comment on above: Result Comment: Repo rted eGFR is based on the CKD-EPI 2020 equation using creatinine, age, and sex. Performed By: #### NATHANIEL RAMÍREZ, HFP ####[facility] (DEFAULT)[address] [place] [address] Glucose [Mass/Vol] 94 mg/dL Normal 70-99 [facility] Comment on above: Performed By: #### NATHANIEL RAMÍREZ, HFP ####[facility] (DEFAULT)[address] [place] [address] Osmolality [Osmolality] 296 mosm/kg Normal 278-305 [facility] Comment on above: Performed By: #### NATHANIEL RAMÍREZ, HFP ####[facility] (DEFAULT)[address] [place] [address] Potassium [Moles/Vol] 3.8 mmol/L Normal 3.5-5.0 [facility] Comment on above: Performed By: #### M TJ BLOOM7, HFP ####[facility] (DEFAULT)[address] [place] [address] Sodium [Moles/Vol] 140 mmol/L Normal 135-145 [facility] Comment on above: Performed By: #### TJ RAMÍREZ7, HFP ####[facility] (DEFAULT)[address] [place] [address] Urea nitrogen [Mass/Vol] 23 mg/dL Normal 7-25 [facility] Comment on above: Performed By: #### M TJ BLOOM7, HFP ####[facility] (DEFAULT)[address] [place] [address] Urea nitrogen/Creatinine [Mass ratio] 17 mg/mg Normal [facility] Comment on above: Performed By: #### NATHANIEL RAMÍREZ, HFP ####[facility] (DEFAULT)[address] [place] [address] Anion gap [Moles/Vol] 14 mmol/L 7 - 17 mmol/L [facility] Chloride [Moles/Vol] 105 mmol/L 98 - 10 8 mmol/L [facility] CO2 [Moles/Vol] 25 mmol/L 21 - 31 mmol/L [facility] Creatinine [Mass/Vol] 1.32 mg/dL High 0.70 - 1.30 mg/dL [facility] eGFR, CKD-EPI, Male 65 - PINF [facility] Comment on above: Reported eGFR is bas ed on the CKD-EPI 2020 equation using creatinine, age, and sex. Glucose [Mass/Vol] 94 mg/dL 70 - 99 mg/dL [facility] Osmolality Calc [Osmolality] 296 [facility] Potassium [Moles/Vol] 3.8 mmol/L 3.5 - 5.0 mmol/L [facility] Sodium [Moles/Vol] 140 mmol/L 135 - 145 mmol/L [facility] Urea nitrogen [Mass/Vol] 23 mg/dL 7 - 25 mg/dL [facility] Urea nitrogen/Creatinine [Mass ratio] 17 mg/mg [facility] GLUCOSE POCon 01-23-2024 Glucose [Mass/Vol] 88 mg/dL 70 - 99 mg/dL [facility] POC Sample Type CAPBL [facility] Test performed at ad dress of the patient encounter. [facility] Glucose [Mass/Vol] 191 mg/dL High 70 - 99 mg/dL [facility] Interpretation and review of laboratory results Abnormal [facility] POC Sample Type CAPBL [facility] Test performed at ad dress of the patient encounter. [facility] HEPATIC FUNCTION PANELon Albumin [Mass/Vol] 3.9 g/dL Normal 3.5-5.0 [facility] Comment on above: Performed By: #### NATHANIEL RAMÍREZ, HFP ####[facility] (DEFAULT)[address] [place] [address] ALP [Catalytic activity/Vol] 83 U/L Normal 32-126 [facility] Comment on above: Performed By: #### NATHANIEL RAMÍREZ, HFP ####[facility] (DEFAULT)[address] [place] [address] ALT [Catalytic activity/Vol] 9 U/L Low 10-52 [facility] Comment on above: Performed By: #### NATHANIEL RAMÍREZ, HFP ####[facility] (DEFAULT)[address] [place] [address] AST [Catalytic activity/Vol] 17 U/L Normal 10-39 [facility] Comment on above: Performed By: #### NATHANIEL RAMÍREZ, HFP ####[facility] (DEFAULT)[address] [facility] [place] [address] Bilirubin [Mass/Vol] 1.6 mg/dL High <1.5 [facility] Comment on above: Performed By: #### M NATHANIEL BLOOM, HFP ####[facility] (DEFAULT)[address] [place] [address] Bilirubin.indirect [Mass/Vol] 0.4 mg/dL High <0.3 [facility] Comment on above: Performed By: #### M NATHANIEL BLOOM, HFP ####[facility] (DEFAULT)[address] [place] [address] Protein [Mass/Vol] 6.6 g/dL Normal 6.4-8.3 [facility] Comment on above: Performed By: #### M NATHANIEL BLOOM, HFP ####[facility] (DEFAULT)[address] [place] [address] Albumin [Mass/Vol] 3.9 g/dL 3.5 - 5.0 g/dL [facility] ALP [Catalytic activity/Vol] 83 U/L 32 - 126 U/L [facility] ALT [Catalytic activity/Vol] 9 U/L Low 10 - 52 U/L [facility] AST [Catalytic activity/Vol] 17 U/L 10 - 39 U/L [facility] Bilirubin [Mass/Vol] 1.6 mg/dL High NINF - 1.5 mg/dL [facility] Bilirubin.direct [Mass/Vol] 0.4 mg/dL High NINF - 0.3 mg/dL [facility] Protein [Mass/Vol] 6.6 g/dL 6.4 - 8.3 g/dL [facility] ITRACONAZOLE LEVELon 01-23- 024 Hydroxyitraconazole [Mass/Vol] 7.6 mcg/mL [facility] Comment on above: REFERENCE VALUE No [...] [facility] [address] [place] [address] Prepress Supervisor: Rosendo Bose M.D. Ph.D.; CLIA# [id number] Itraconazole [Mass/Vol] 6.0 mcg/mL [facility] Comment on above: REFERENCE VALUE >0.5 (localized infection), >1.0 (systemic infection) [facility] MAGNESIUMon 01-23-2024 Magnesium [Mass/Vol] 1.8 mg/dL Normal 1.6-2.6 [facility] Comment on above: Performed By: #### M , M7, HFP ####[facility] (DEFAULT)[address] [place] [address] Interpretation and review of laboratory results Normal [facility] Magnesium [Mass/Vol] 1.8 mg/dL 1.6 - 2 .6 mg/dL [facility] No Panel Informationon 01-23 Interpretation and review of laboratory results Abnormal [facility] TACROLIMUS LEVEL, TROUGH (MT E DRUG LEVEL)on 01-23-2024 Interpretation and review of laboratory results Normal [facility] Tacrolimus (Bld) [Mass/Vol] 7.0 ng/mL Bone Marrow Transplant: 4.0-12.0, Therapeutic: 5.0-15.0 [facility] Method performed is a chemiluminescent microparticle immunoasssay on the [employer] Cathead Operator i2000. The range is based on experience at [facility] and users should be aware that target concentrations vary widely depending on concomitant therapy, time post-transplant, and desired degree of immunosuppression. [facility] Tacrolimus, Trough 7.0 ng/mL Normal Bone Susana ow Transplant: 4.0-12.0, Therapeutic: 5.0-15.0 [facility] Comment on above: Order Comment: Samrajoan colt draw at specified interval PRIOR to dose. Do not hold dose to wait for level. Specimens batched twice per day, (M-F) and once per day weekendsMethod performed is a chemiluminescent microparticle immunoasssay on the [employer] Cathead Operator i2000.The range is based on experience at [facility] and users should be aware that target concentrations vary widely depending on concomitant therapy, time post-transplant, and desired degree of immunosuppression. Performed By: #### T ACRO ####[facility] (DEFAULT)[address] [place] [address] CARDIAC RHYTHM (SCANNED)on 0 01-22-2024 [facility] CBC,PLATELETSon 01-22-2024 Hematocrit (Bld) [Volume fraction] 41.5 % Normal 39.6-48.8 [facility] Comment on above: Performed By: #### H EMO ####[facility] (DEFAULT)[address] [place] [address] Hemoglobin (Bld) [Mass/Vol] 13.3 g/dL Low 13.4-16.8 [facility] Comment on above: Performed By: #### H EMOGC ####[facility] (DEFAULT)[address] [place] [address], [place] [address] MCV (RBC) [Entitic vol] 86.8 fL Normal 79.0-94.5 [facility] Comment on above: Performed By: #### H EMOGC ####[facility] (DEFAULT)[address] [place] [address] Mean Cell Hgb 27.8 pg Normal 26.1-33.3 [facility] Comment on above: Performed By: #### H EMOGC ####[facility] (DEFAULT)[address] [place] [address] Mean Cell Hgb Conc 32.0 g/dL Normal 31.9-36.5 [facility] Comment on above: Performed By: #### H EMOGC ####[facility] (DEFAULT)[address] [place] [address] Platelet mean volume (Bld) [Entitic vol] 10.5 fL Normal 8.7-12.3 [facility] Comment on above: Performed By: #### H EMOGC ####[facility] (DEFAULT)[address] [place] [address] Platelets (Bld) [#/Vol] 186 10*3/uL Normal 146-337 [facility] Comment on above: Performed By: #### H EMOGC ####[facility] (DEFAULT)[address] [place] [address] RBC (Bld) [#/Vol] 4.78 10*6/uL Normal 4.38-5.83 [facility] Comment on above: Performed By: #### H EMOGC ####[facility] (DEFAULT)[address] [place] [address] RBC Distribution 14.1 % Normal 10.9-14.3 [facility] Comment on above: Performed By: #### H EMOGC ####[facility] (DEFAULT)[address] [place] [address] WBC (Bld) [#/Vol] 3.74 10*3/uL Normal 3.73-10.10 [facility] Comment on above: Performed By: #### H EMOGC ####[facility] (DEFAULT)[address] [place] [address] Erythrocyte distribution width (RBC) [Ratio] 14.1 % 10.9 - 14.3 % [facility] Hematocrit (Bld) [Volume fraction] 41.5 % 39.6 - 48.8 % [facility] Hemoglobin (Bld) [Mass/Vol] 13.3 g/dL Low 13.4 - 16.8 g/dL [facility] Interpretation and review of laboratory results Abnormal [facility] MCH (RBC) [Entitic mass] 27.8 pg 26.1 - 33.3 pg [facility] MCHC (RBC) [Mass/Vol] 32.0 g/dL 31.9 - 36.5 g/dL [facility] MCV (RBC) [Entitic vol] 86.8 fL 79.0 - 94.5 fL [facility] Platelet mean volume (Bld) [Entitic vol] 10.5 fL 8.7 - 12.3 fL [facility] Platelets (Bld) [#/Vol] 186 10*3/uL 146 - 337 K/uL [facility] RBC (Bld) [#/Vol] 4.78 10*6/uL [facility] WBC (Bld) [#/Vol] 3.74 10*3/uL 3.73 - 10. 10 K/uL [facility] CHEM 7 (LYTES,BUN,CREA,GLUC) on 01-22-2024 Anion gap [Moles/Vol] 13 mmol/L Normal 7-17 [facility] Comment on above: Performed By: ###NATHANIEL HERNANDEZ ####[facility] (DEFAULT)[address] [place] [address] Chloride [Moles/Vol] 109 mmol/L High 98-108 [facility] Comment on above: Performed By: #### NATHANIEL RAMÍREZ ####[facility] (DEFAULT)[address] [place] [address] CO2 [Moles/Vol] 23 mmol/L Normal 21-31 [facility] Comment on above: Performed By: #### NATHANIEL RAMÍREZ ####[facility] (DEFAULT)[address] [place] [address] Creatinine [Mass/Vol] 1.10 mg/dL Normal 0.70-1.30 [facility] Comment on above: Performed By: #### NATHANIEL RAMÍREZ ####[facility] (DEFAULT)[address] [place] [address] GFR/1.73 sq M.predicted among non-blacks MDRD (S/P/Bld) [Vol rate/Area] 81 mL/min/{1.73_m2} Normal >=60 [facility] Comment on above: Result Comment: Repo rted eGFR is based on the CKD-EPI 2020 equation using creatinine, age, and sex. Performed By: #### TJ RAMÍREZ7 ####[facility] (DEFAULT)[address] [place] [address] Glucose [Mass/Vol] 84 mg/dL Normal 70-99 [facility] Comment on above: Performed By: #### NATHANIEL RAMÍREZ ####[facility] (DEFAULT)[address] [place] [address] Osmolality [Osmolality] 295 mosm/kg Normal 278-305 [facility] Comment on above: Performed By: #### NATHANIEL RAMÍREZ ####[facility] (DEFAULT)[address] [place] [address] Potassium [Moles/Vol] 4.0 mmol/L Normal 3.5-5.0 [facility] Comment on above: Performed By: #### TJ RAMÍREZ7 ####[facility] (DEFAULT)[address] [place] [address] Sodium [Moles/Vol] 141 mmol/L Normal 135-145 [facility] Comment on above: Performed By: #### TJ RAMÍREZ7 ####[facility] (DEFAULT)[address] [place] [address] Urea nitrogen [Mass/Vol] 16 mg/dL Normal 7-25 [facility] Comment on above: Performed By: #### TJ RAMÍREZ7 ####[facility] (DEFAULT)[address] [place] [address] Urea nitrogen/Creatinine [Mass ratio] 15 mg/mg Normal [facility] Comment on above: Performed By: #### Rod BLOOM CHM7 ####[facility] (DEFAULT)[address] [place] [address] Anion gap [Moles/Vol] 13 mmol/L 7 - 17 mmol/L [facility] Chloride [Moles/Vol] 109 mmol/L High 98 - 10 8 mmol/L [facility] CO2 [Moles/Vol] 23 mmol/L 21 - 31 mmol/L [facility] Creatinine [Mass/Vol] 1.10 mg/dL 0.70 - 1.30 mg/dL [facility] eGFR, CKD-EPI, Male 81 - PINF [facility] Comment on above: Reported eGFR is bas ed on the CKD-EPI 2020 equation using creatinine, age, and sex. Glucose [Mass/Vol] 84 mg/dL 70 - 99 mg/dL [facility] Interpretation and review of laboratory results Abnormal [facility] Osmolality Calc [Osmolality] 295 [facility] Potassium [Moles/Vol] 4.0 mmol/L 3.5 - 5.0 mmol/L [facility] Sodium [Moles/Vol] 141 mmol/L 135 - 145 mmol/L [facility] Urea nitrogen [Mass/Vol] 16 mg/dL 7 - 25 mg/dL [facility] Urea nitrogen/Creatinine [Mass ratio] 15 mg/mg [facility] MAGNESIUMon 01-22-2024 Magnesium [Mass/Vol] 2.0 mg/dL Normal 1.6-2.6 [facility] Comment on above: Performed By: #### TJ RAMÍREZ7 ####[facility] (DEFAULT)[address] [place] [address] Interpretation and review of laboratory results Normal [facility] Magnesium [Mass/Vol] 2.0 mg/dL 1.6 - 2 .6 mg/dL [facility] No Panel Informationon 01-22 [facility] PT,INR,PTTon 01-22-2024 aPTT Coag (Bld) [Time] 29.2 s Normal 24.0-34.3 [facility] Comment on above: Performed By: #### P TPTT ####[facility] (DEFAULT)[address] [place] [address] INR Coag (PPP) [Relative time] 1.1 {INR} Normal 0.9-1.1 [facility] Comment on above: Performed By: #### P TPTT ####[facility] (DEFAULT)[address] [place] [address] PT Coag (PPP) [Time] 14.3 s High 11.9-14.2 [facility] Comment on above: Performed By: #### P TPTT ####[facility] (DEFAULT)[address] [facility] [place] [address] aPTT Coag (PPP) [Time] 29.2 s [facility] INR Coag (Bld) [Relative time] 1.1 {INR} 0.9 - 1.1 [facility] Interpretation and review of laboratory results Abnormal [facility] PT Coag (PPP) [Time] 14.3 s High [facility] TACROLIMUS LEVEL, TROUGH (MT E DRUG LEVEL)Ordered By: Sheree Jensen on 01-22-2024 Interpretation and review of laboratory results Normal [facility] Tacrolimus (Bld) [Mass/Vol] 7.9 ng/mL Bone Marrow Transplant: 4.0-12.0, Therapeutic: 5.0-15.0 [facility] Method performed is a chemiluminescent microparticle immunoasssay on the [employer] i2000. The range is based on experience at [facility] and users should be aware that target concentrations vary widely depending on concomitant therapy, time post-transplant, and desired degree of immunosuppression. [facility] TACROLIMUS LEVEL, TROUGH (MT E DRUG LEVEL)on 01-22-2024 Tacrolimus, Trough 7.9 ng/mL Normal Bone Susana ow Transplant: 4.0-12.0, Therapeutic: 5.0-15.0 [facility] Comment on above: Order Comment: Pleas e draw at specified interval PRIOR to dose. Do not hold dose to wait for level. Specimens batched twice per day, (M-F) and once per day weekendsMethod performed is a chemiluminescent microparticle immunoasssay on the [employer] i2000.The range is based on experience at [facility] and users should be aware that target concentrations vary widely depending on concomitant therapy, time post-transplant, and desired degree of immunosuppression. Performed By: #### T ACRO ####[facility] (DEFAULT)[address] [place] [address] TYPE AND SCREENon 01-22-2024 ABO/RH(D) TYPE Positive [facility] ABO/RH(D) TYPE Positive Normal [facility] Comment on above: Performed By: #### X M ####[facility] (DEFAULT)[address] [place] [address] [place] Unspecified body regionOr dered By: Unassigned Pacs on 01-22-2024 [facility] Work Phone: [place] Unspecified body regionon 01-22-2024 Radiology Study observation (narrative) [facility] CBC,PLATELETSon 01-21-2024 Hematocrit (Bld) [Volume fraction] 39.4 % Low 39.6-48.8 [facility] Comment on above: Performed By: #### [facility] ####[facility] (DEFAULT)[address] [place] [address] Hemoglobin (Bld) [Mass/Vol] 12.7 g/dL Low 13.4-16.8 [facility] Comment on above: Performed By: #### H EMO ####[facility] (DEFAULT)[address] [place] [address] MCV (RBC) [Entitic vol] 87.0 fL Normal 79.0-94.5 [facility] Comment on above: Performed By: #### H EMOGC ####[facility] (DEFAULT)[address] [facility] [place] [address] Mean Cell Hgb 28.0 pg Normal 26.1-33.3 [facility] Comment on above: Performed By: #### H EMOGC ####[facility] (DEFAULT)[address] [facility] [place] [address] Mean Cell Hgb Conc 32.2 g/dL Normal 31.9-36.5 [facility] Comment on above: Performed By: #### H EMOGC ####[facility] (DEFAULT)[address] [place] [address] Platelet mean volume (Bld) [Entitic vol] 10.2 fL Normal 8.7-12.3 [facility] Comment on above: Performed By: #### H EMOGC ####[facility] (DEFAULT)[address] [place] [address] Platelets (Bld) [#/Vol] 157 10*3/uL Normal 146-337 [facility] Comment on above: Performed By: #### H EMOGC ####[facility] (DEFAULT)[address] [place] [address] RBC (Bld) [#/Vol] 4.53 10*6/uL Normal 4.38-5.83 [facility] Comment on above: Performed By: #### H EMOGC ####[facility] (DEFAULT)[address] [place] [address] RBC Distribution 14.0 % Normal 10.9-14.3 [facility] Comment on above: Performed By: #### H EMOGC ####[facility] (DEFAULT)[address] [facility] [place] [address] WBC (Bld) [#/Vol] 3.42 10*3/uL Low 3.73-10.10 [facility] Comment on above: Performed By: #### H EMOGC ####[facility] (DEFAULT)[address] [place] [address] Erythrocyte distribution width (RBC) [Ratio] 14.0 % 10.9 - 14.3 % [facility] Hematocrit (Bld) [Volume fraction] 39.4 % Low 39.6 - 48.8 % [facility] Hemoglobin (Bld) [Mass/Vol] 12.7 g/dL Low 13.4 - 16.8 g/dL [facility] Interpretation and review of laboratory results Abnormal [facility] MCH (RBC) [Entitic mass] 28.0 pg 26.1 - 33.3 pg [facility] MCHC (RBC) [Mass/Vol] 32.2 g/dL 31.9 - 36.5 g/dL [facility] MCV (RBC) [Entitic vol] 87.0 fL 79.0 - 94.5 fL [facility] Platelet mean volume (Bld) [Entitic vol] 10.2 fL 8.7 - 12.3 fL [facility] Platelets (Bld) [#/Vol] 157 10*3/uL 146 - 337 K/uL [facility] RBC (Bld) [#/Vol] 4.53 10*6/uL [facility] WBC (Bld) [#/Vol] 3.42 10*3/uL Low 3.73 - 10. 10 K/uL [facility] CHEM 7 (LYTES,BUN,CREA,GLUC) on 01-21-2024 Anion gap [Moles/Vol] 12 mmol/L Normal 7-17 [facility] Comment on above: Performed By: #### NATHANIEL RAMÍREZ ####[facility] (DEFAULT)[address] [place] [address] Chloride [Moles/Vol] 107 mmol/L Normal 98-108 [facility] Comment on above: Performed By: #### NATHANIEL RAMÍREZ ####[facility] (DEFAULT)[address] [place] [address] CO2 [Moles/Vol] 26 mmol/L Normal 21-31 [facility] Comment on above: Performed By: #### NATHANIEL RAMÍREZ ####[facility] (DEFAULT)[address] [facility] [place] [address] Creatinine [Mass/Vol] 1.11 mg/dL Normal 0.70-1.30 [facility] Comment on above: Performed By: #### TJ RAMÍREZ7 ####[facility] (DEFAULT)[address] [facility] [place] [address] GFR/1.73 sq M.predicted among non-blacks MDRD (S/P/Bld) [Vol rate/Area] 80 mL/min/{1.73_m2} Normal >=60 [facility] Comment on above: Result Comment: Repo rted eGFR is based on the CKD-EPI 2020 equation using creatinine, age, and sex. Performed By: #### NATHANIEL RAMÍREZ ####[facility] (DEFAULT)[address] [place] [address] Glucose [Mass/Vol] 93 mg/dL Normal 70-99 [facility] Comment on above: Performed By: #### NATHANIEL RAMÍREZ ####[facility] (DEFAULT)[address] [place] [address] Osmolality [Osmolality] 295 mosm/kg Normal 278-305 [facility] Comment on above: Performed By: #### NATHANIEL RAMÍREZ ####[facility] (DEFAULT)[address] [place] [address] Potassium [Moles/Vol] 3.9 mmol/L Normal 3.5-5.0 [facility] Comment on above: Performed By: #### TJ RAMÍREZ7 ####[facility] (DEFAULT)[address] [place] [address] Sodium [Moles/Vol] 141 mmol/L Normal 135-145 [facility] Comment on above: Performed By: #### M MERLE CHM7 ####[facility] (DEFAULT)[address] [place] [address] Urea nitrogen [Mass/Vol] 15 mg/dL Normal 7-25 [facility] Comment on above: Performed By: #### M MERLE CHM7 ####[facility] (DEFAULT)[address] [place] [address] Urea nitrogen/Creatinine [Mass ratio] 14 mg/mg Normal [facility] Comment on above: Performed By: #### M MERLE CHM7 ####[facility] (DEFAULT)[address] [place] [address] Anion gap [Moles/Vol] 12 mmol/L 7 - 17 mmol/L [facility] Chloride [Moles/Vol] 107 mmol/L 98 - 10 8 mmol/L [facility] CO2 [Moles/Vol] 26 mmol/L 21 - 31 mmol/L [facility] Creatinine [Mass/Vol] 1.11 mg/dL 0.70 - 1.30 mg/dL [facility] eGFR, CKD-EPI, Male 80 - PINF [facility] Comment on above: Reported eGFR is bas ed on the CKD-EPI 2020 equation using creatinine, age, and sex. Glucose [Mass/Vol] 93 mg/dL 70 - 99 mg/dL [facility] Osmolality Calc [facility]olality] [facility] Potassium [Moles/Vol] 3.9 mmol/L 3.5 - 5.0 mmol/L [facility] Sodium [Moles/Vol] 141 mmol/L 135 - 145 mmol/L [facility] Urea nitrogen [Mass/Vol] 15 mg/dL 7 - 25 mg/dL [facility] Urea nitrogen/Creatinine [Mass ratio] 14 mg/mg [facility] Cardiac catheterization stud yOrdered By: Kelvin Donohue on 01-21-2024 Body surface area Derived from formula 2.08 m2 [facility] Work Phone: [facility] Work Phone: Cardiac catheterization stud yon [...] with fistula occlusion Kelvin Donohue MD, MPH [employer] Medicine. Section of Advanced Heart Failure and Transplantation Division of Cardiovascular Diseases [email or web address] INVASIVE CARDIOVASCULAR PROC EDUREon 01-21-2024 INVASIVE CARDIOVASCULAR PROCEDURE Normal [facility] MAGNESIUMon 01-21-2024 Magnesium [Mass/Vol] 1.5 mg/dL Low 1.6-2.6 [facility] Comment on above: Performed By: #### M [facility]LE [facility] ####[facility] (DEFAULT)[address] [place] [address] Interpretation and review of laboratory results Abnormal [facility] Magnesium [Mass/Vol] 1.5 mg/dL Low 1.6 - 2 .6 mg/dL [facility] No Panel Informationon 01-21 [facility] TACROLIMUS LEVEL, TROUGH (MT E DRUG LEVEL)on 01-21-2024 Interpretation and review of laboratory results Normal [facility] Tacrolimus (Bld) [Mass/Vol] 7.2 ng/mL Bone Marrow Transplant: 4.0-12.0, Therapeutic: 5.0-15.0 [facility] Method performed is a chemiluminescent microparticle immunoasssay on the [employer] i2000. The range is based on experience at [facility] and users should be aware that target concentrations vary widely depending on concomitant therapy, time post-transplant, and desired degree of immunosuppression. [facility] Tacrolimus, Trough 7.2 ng/mL Normal Bone Susana ow Transplant: 4.0-12.0, Therapeutic: 5.0-15.0 [facility] Comment on above: Order Comment: Pleas e draw at specified interval PRIOR to dose. Do not hold dose to wait for level. Specimens batched twice per day, (M-F) and once per day weekendsMethod performed is a chemiluminescent microparticle immunoasssay on the [employer] i2000.The range is based on experience at [facility] and users should be aware that target concentrations vary widely depending on concomitant therapy, time post-transplant, and desired degree of immunosuppression. Performed By: #### T ACRO ####[facility] (DEFAULT)[address] [place] [address] CBC,PLATELETSon 01-20-2024 Hematocrit (Bld) [Volume fraction] 38.9 % Low 39.6-48.8 [facility] Comment on above: Performed By: #### [facility] ####[facility] (DEFAULT)[address] [place] [address] Hemoglobin (Bld) [Mass/Vol] 12.5 g/dL Low 13.4-16.8 [facility] Comment on above: Performed By: #### H [facility] ####[facility] (DEFAULT)[address] [place] [address] MCV (RBC) [Entitic vol] 87.2 fL Normal 79.0-94.5 [facility] Comment on above: Performed By: #### H EMO ####[facility] (DEFAULT)[address] [place] [address] Mean Cell Hgb 28.0 pg Normal 26.1-33.3 [facility] Comment on above: Performed By: #### H EMOGC ####[facility] (DEFAULT)[address] [place] [address] Mean Cell Hgb Conc 32.1 g/dL Normal 31.9-36.5 [facility] Comment on above: Performed By: #### H EMOGC ####[facility] (DEFAULT)[address] [facility] [place] [address] Platelet mean volume (Bld) [Entitic vol] 10.2 fL Normal 8.7-12.3 [facility] Comment on above: Performed By: #### H EMOGC ####[facility] (DEFAULT)[address] [place] [address] Platelets (Bld) [#/Vol] 166 10*3/uL Normal 146-337 [facility] Comment on above: Performed By: #### H EMOGC ####[facility] (DEFAULT)[address] [place] [address] RBC (Bld) [#/Vol] 4.46 10*6/uL Normal 4.38-5.83 [facility] Comment on above: Performed By: #### H EMOGC ####[facility] (DEFAULT)[address] [place] [address] RBC Distribution 13.8 % Normal 10.9-14.3 [facility] Comment on above: Performed By: #### H EMOGC ####[facility] (DEFAULT)[address] [place] [address] WBC (Bld) [#/Vol] 3.79 10*3/uL Normal 3.73-10.10 [facility] Comment on above: Performed By: #### H EMOGC ####[facility] (DEFAULT)[address] [place] [address] Erythrocyte distribution width (RBC) [Ratio] 13.8 % 10.9 - 14.3 % [facility] Hematocrit (Bld) [Volume fraction] 38.9 % Low 39.6 - 48.8 % [facility] Hemoglobin (Bld) [Mass/Vol] 12.5 g/dL Low 13.4 - 16.8 g/dL [facility] Interpretation and review of laboratory results Abnormal [facility] MCH (RBC) [Entitic mass] 28.0 pg 26.1 - 33.3 pg [facility] MCHC (RBC) [Mass/Vol] 32.1 g/dL 31.9 - 36.5 g/dL [facility] MCV (RBC) [Entitic vol] 87.2 fL 79.0 - 94.5 fL [facility] Platelet mean volume (Bld) [Entitic vol] 10.2 fL 8.7 - 12.3 fL [facility] Platelets (Bld) [#/Vol] 166 10*3/uL 146 - 337 K/uL [facility] RBC (Bld) [#/Vol] 4.46 10*6/uL [facility] WBC (Bld) [#/Vol] 3.79 10*3/uL 3.73 - 10. 10 K/uL [facility] CHEM 7 (LYTES,BUN,CREA,GLUC) on 01-20-2024 Anion gap [Moles/Vol] 12 mmol/L Normal 7-17 [facility] Comment on above: Performed By: #### TAVO RAMÍREZ, CHM7 ####[facility] (DEFAULT)[address] [place] [address] Chloride [Moles/Vol] 105 mmol/L Normal 98-108 [facility] Comment on above: Performed By: #### TAVO RAMÍREZ, CHM7 ####[facility] (DEFAULT)[address] [place] [address] CO2 [Moles/Vol] 28 mmol/L Normal 21-31 [facility] Comment on above: Performed By: #### TAVO RAMÍREZ, CHM7 ####U [facility] (DEFAULT)[address] [facility] [place] [address] Creatinine [Mass/Vol] 1.12 mg/dL Normal 0.70-1.30 [facility] Comment on above: Performed By: #### TAVO RAMÍREZ, CHM7 ####U [facility] (DEFAULT)[address] [place] [address] GFR/1.73 sq M.predicted among non-blacks MDRD (S/P/Bld) [Vol rate/Area] 79 mL/min/{1.73_m2} Normal >=60 [facility] Comment on above: Result Comment: Repo rted eGFR is based on the CKD-EPI 2020 equation using creatinine, age, and sex. Performed By: #### TAVO RAMÍREZ CHM7 ####U [facility] (DEFAULT)[address] [place] [address] Glucose [Mass/Vol] 88 mg/dL Normal 70-99 [facility] Comment on above: Performed By: #### TAVO RAMÍREZ CHM7 ####U [facility] (DEFAULT)[address] [place] [address] Osmolality [Osmolality] 294 mosm/kg Normal 278-305 [facility] Comment on above: Performed By: #### TAVO RAMÍREZ, CHM7 ####U [facility] (DEFAULT)[address] [place] [address] Potassium [Moles/Vol] 3.8 mmol/L Normal 3.5-5.0 [facility] Comment on above: Performed By: #### TAVO RAMÍREZ, CHM7 ####[facility] (DEFAULT)[address] [place] [address] Sodium [Moles/Vol] 141 mmol/L Normal 135-145 [facility] Comment on above: Performed By: #### TAVO RAMÍREZ, CHM7 ####[facility] (DEFAULT)[address] [place] [address] Urea nitrogen [Mass/Vol] 15 mg/dL Normal 7-25 [facility] Comment on above: Performed By: #### M TAVO BLOOM, CHM7 ####[facility] (DEFAULT)[address] [place] [address] Urea nitrogen/Creatinine [Mass ratio] 13 mg/mg Normal [facility] Comment on above: Performed By: #### M TAVO BLOOM, CHM7 ####[facility] (DEFAULT)[address] [place] [address] Anion gap [Moles/Vol] 12 mmol/L 7 - 17 mmol/L [facility] Chloride [Moles/Vol] 105 mmol/L 98 - 10 8 mmol/L [facility] CO2 [Moles/Vol] 28 mmol/L 21 - 31 mmol/L [facility] Creatinine [Mass/Vol] 1.12 mg/dL 0.70 - 1.30 mg/dL [facility] eGFR, CKD-EPI, Male 79 - PINF [facility] Comment on above: Reported eGFR is bas ed on the CKD-EPI 2020 equation using creatinine, age, and sex. Glucose [Mass/Vol] 88 mg/dL 70 - 99 [facility] Osmolality Calc [Osmolality] 294 [facility] Potassium [Moles/Vol] 3.8 mmol/L 3.5 - 5.0 mmol/L [facility] Sodium [Moles/Vol] 141 mmol/L 135 - 145 mmol/L [facility] Urea nitrogen [Mass/Vol] 15 mg/dL 7 - 25 mg/dL [facility] Urea nitrogen/Creatinine [Mass ratio] 13 mg/mg [facility] Cardiac catheterization stud yon 01-20-2024 [facility] Radiology Study observation (narrative) [facility] Radiology Study observation (narrative) [facility] EBV BY PCR, QUANTITATIVE,BLO ODOrdered By: Charlotte Jensen on 01-20-2024 EBV DNA ESTELITA+probe (Unsp spec) [#/Vol] NINF [facility] Interpretation and review of laboratory results Normal [facility] This test was perfor med using a real time PCR assay. The dynamic range for this assay is 1000-5,000,000 IU/mL. A result <1000 IU/mL does not rule out the presence of EBV DNA in quantities below the sensitivity of this assay. This test was developed and its performance characteristics determined by The [facility] at The [facility]. It has not been cleared or approved by the FDA. The laboratory is regulated under CLIA as qualified to perform high-complexity testing. This test is used for clinical purposes. It should not be regarded as investigational or for research. [facility] HEPATIC FUNCTION PANELon Albumin [Mass/Vol] 3.7 g/dL Normal 3.5-5.0 [facility] Comment on above: Performed By: #### TAVO RAMÍREZ, CHM7 ####[facility] (DEFAULT)[address] [place] [address] ALP [Catalytic activity/Vol] 73 U/L Normal 32-126 [facility] Comment on above: Performed By: #### TAVO RAMÍREZ, CHM7 ####[facility] (DEFAULT)[address] [place] [address] ALT [Catalytic activity/Vol] 12 U/L Normal 10-52 [facility] Comment on above: Performed By: #### TAVO RAMÍREZ, CHM7 ####[facility] (DEFAULT)[address] [place] [address] AST [Catalytic activity/Vol] 19 U/L Normal 10-39 [facility] Comment on above: Performed By: #### TAVO RAMÍREZ, CHM7 ####[facility] (DEFAULT)[address] [facility] [place] [address] Bilirubin [Mass/Vol] 2.1 mg/dL High <1.5 [facility] Comment on above: Performed By: #### M TAVO BLOOM, CHM7 ####[facility] (DEFAULT)[address] [place] [address] Bilirubin.indirect [Mass/Vol] 0.5 mg/dL High <0.3 [facility] Comment on above: Performed By: #### M TAVO BLOOM, CHM7 ####[facility] (DEFAULT)[address] [facility] [place] [address] Protein [Mass/Vol] 6.1 g/dL Low 6.4-8.3 [facility] Comment on above: Performed By: #### M TAVO BLOOM, CHM7 ####[facility] (DEFAULT)[address] [place] [address] Albumin [Mass/Vol] 3.7 g/dL 3.5 - 5.0 g/dL [facility] ALP [Catalytic activity/Vol] 73 U/L 32 - 126 U/L [facility] ALT [Catalytic activity/Vol] 12 U/L 10 - 52 U/L [facility] AST [Catalytic activity/Vol] 19 U/L 10 - 39 U/L [facility] Bilirubin [Mass/Vol] 2.1 mg/dL High NINF - 1.5 mg/dL [facility] Bilirubin.direct [Mass/Vol] 0.5 mg/dL High NINF - 0.3 mg/dL [facility] Interpretation and review of laboratory results Abnormal [facility] Protein [Mass/Vol] 6.1 g/dL Low 6.4 - 8.3 g/dL [facility] ITRACONAZOLE LEVELon 024 Hydroxyitraconazole 7.6 mcg/mL Normal [facility] Comment on above: Order Comment: Dilan gregory draw level at specified interval PRIOR to dose. Result Comment: ---- REFERENCE VALUE No therapeutic range established; activity and serumconcentration are similar to parent drug. ADDITIONAL INFORMATION This test was developed and its performance characteristicsdetermined by [facility] in a manner consistent with CLIArequirements. This test has not been cleared or approved bythe U.S. Food and Drug Administration.Test Performed by:[facility] - [address] [address]Cgm Director: Rosendo Bose M.D. Ph.D.; CLIA# [id number] Performed By: #### Y ITCON ####[facility] (DEFAULT)[address] [address] Itraconazole 6.0 mcg/mL Normal [facility] Comment on above: Order Comment: Pleas e draw level at specified interval PRIOR to dose. Result Comment: ---- REFERENCE VALUE-------------------------->0.5 (localized infection), >1.0 (systemic infection) Performed By: #### Y ITCON ####[facility] (DEFAULT)[address] [place] [address] MAGNESIUMon 01-20-2024 Magnesium [Mass/Vol] 1.6 mg/dL Normal 1.6-2.6 [facility] Comment on above: Performed By: #### M MERLE, [facility], CHM7 ####[facility] (DEFAULT)[address] [place] [address] Interpretation and review of laboratory results Normal [facility] Magnesium [Mass/Vol] 1.6 mg/dL 1.6 - 2 .6 mg/dL [facility] No Panel Informationon 01-20 [facility] POCT CO-OXIMETRYon Hemoglobin (Bld) [Mass/Vol] 12.8 g/dL Low 13.4 - 16.8 g/dL [facility] Interpretation and review of laboratory results Abnormal [facility] Oxyhemoglobin 69 % Low 94 - 98 % [facility] Ordering physician notified. Test performed at address of the patient encounter. [facility] Hemoglobin (Bld) [Mass/Vol] 13.3 g/dL Low 13.4 - 16.8 g/dL [facility] Interpretation and review of laboratory results Abnormal [facility] Oxyhemoglobin 69 % Low 94 - 98 % [facility] Ordering physician notified. Test performed at address of the patient encounter. [facility] PT,INR,PTTon 01-20-2024 aPTT Coag (Bld) [Time] 30.6 s Normal 24.0-34.3 [facility] Comment on above: Performed By: #### P TPTT ####[facility] (DEFAULT)[address] [place] [address] INR Coag (PPP) [Relative time] 1.2 {INR} High 0.9-1.1 [facility] Comment on above: Performed By: #### P TPTT ####[facility] (DEFAULT)[address] [place] [address] PT Coag (PPP) [Time] 15.5 s High 11.9-14.2 [facility] Comment on above: Performed By: #### P TPTT ####[facility] (DEFAULT)[address] [place] [address] aPTT Coag (PPP) [Time] 30.6 s [facility] INR Coag (Bld) [Relative time] 1.2 {INR} High 0.9 - 1.1 [facility] Interpretation and review of laboratory results Abnormal [facility] PT Coag (PPP) [Time] 15.5 s High [facility] TACROLIMUS LEVEL, TROUGH (MT E DRUG LEVEL)Ordered By: Yanira Marcum on 01-20-2024 Interpretation and review of laboratory results Normal [facility] Tacrolimus (Bld) [Mass/Vol] 7.7 ng/mL Bone Marrow Transplant: 4.0-12.0, Therapeutic: 5.0-15.0 [facility] Method performed is a chemiluminescent microparticle immunoasssay on the [employer] i2000. The range is based on experience at [facility] and users should be aware that target concentrations vary widely depending on concomitant therapy, time post-transplant, and desired degree of immunosuppression. [facility] TACROLIMUS LEVEL, TROUGH (MT E DRUG LEVEL)on 01-20-2024 Tacrolimus, Trough 7.7 ng/mL Normal Bone Susana ow Transplant: 4.0-12.0, Therapeutic: 5.0-15.0 [facility] Comment on above: Order Comment: Pleas e draw at specified interval PRIOR to dose. Do not hold dose to wait for level. Specimens batched twice per day, (M-F) and once per day weekendsMethod performed is a chemiluminescent microparticle immunoasssay on the [employer] i2000.The range is based on experience at [facility] and users should be aware that target concentrations vary widely depending on concomitant therapy, time post-transplant, and desired degree of immunosuppression. Performed By: #### T ACRO ####[facility] (DEFAULT)[address] [place] [address] CBC,PLATELETSon 01-19-2024 Hematocrit (Bld) [Volume fraction] 37.5 % Low 39.6-48.8 [facility] Comment on above: Performed By: #### [facility] [place] ####[facility] (DEFAULT)[address] [place] [address] Hemoglobin (Bld) [Mass/Vol] 12.1 g/dL Low 13.4-16.8 [facility] Comment on above: Performed By: #### [facility] [place] ####[facility] (DEFAULT)[address] [place] [address] MCV (RBC) [Entitic vol] 87.8 fL Normal 79.0-94.5 [facility] Comment on above: Performed By: #### H EMOGC ####[facility] (DEFAULT)[address] [place] [address] Mean Cell Hgb 28.3 pg Normal 26.1-33.3 [facility] Comment on above: Performed By: #### H EMOGC ####[facility] (DEFAULT)[address] [place] [address] Mean Cell Hgb Conc 32.3 g/dL Normal 31.9-36.5 [facility] Comment on above: Performed By: #### H EMOGC ####[facility] (DEFAULT)[address] [place] [address] Platelet mean volume (Bld) [Entitic vol] 10.4 fL Normal 8.7-12.3 [facility] Comment on above: Performed By: #### H EMOGC ####[facility] (DEFAULT)[address] [place] [address] Platelets (Bld) [#/Vol] 163 10*3/uL Normal 146-337 [facility] Comment on above: Performed By: #### H EMOGC ####[facility] (DEFAULT)[address] [place] [address] RBC (Bld) [#/Vol] 4.27 10*6/uL Low 4.38-5.83 [facility] Comment on above: Performed By: #### H EMOGC ####[facility] (DEFAULT)[address] [place] [address] RBC Distribution 13.9 % Normal 10.9-14.3 [facility] Comment on above: Performed By: #### H EMOGC ####[facility] (DEFAULT)[address] [place] [address] WBC (Bld) [#/Vol] 3.69 10*3/uL Low 3.73-10.10 [facility] Comment on above: Performed By: #### H [facility] [place] ####[facility] (DEFAULT)[address] [place] [address] Erythrocyte distribution width (RBC) [Ratio] 13.9 % 10.9 - 14.3 % [facility] Hematocrit (Bld) [Volume fraction] 37.5 % Low 39.6 - 48.8 % [facility] Hemoglobin (Bld) [Mass/Vol] 12.1 g/dL Low 13.4 - 16.8 g/dL [facility] Interpretation and review of laboratory results Abnormal [facility] MCH (RBC) [Entitic mass] 28.3 pg 26.1 - 33.3 pg [facility] MCHC (RBC) [Mass/Vol] 32.3 g/dL 31.9 - 36.5 g/dL [facility] MCV (RBC) [Entitic vol] 87.8 fL 79.0 - 94.5 fL [facility] Platelet mean volume (Bld) [Entitic vol] 10.4 fL 8.7 - 12.3 fL [facility] Platelets (Bld) [#/Vol] 163 10*3/uL 146 - 337 K/uL [facility] RBC (Bld) [#/Vol] 4.27 10*6/uL Low [facility] WBC (Bld) [#/Vol] 3.69 10*3/uL Low 3.73 - 10. 10 K/uL [facility] CHEM 7 (LYTES,BUN,CREA,GLUC) on 01-19-2024 Anion gap [Moles/Vol] 14 mmol/L Normal 7-17 [facility] Comment on above: Performed By: ###NATHANIEL HERNANDEZ ####[facility] (DEFAULT)[address] [place] [address] Chloride [Moles/Vol] 106 mmol/L Normal 98-108 [facility] Comment on above: Performed By: ###NATHANIEL HERNANDEZ ####[facility] (DEFAULT)[address] [place] [address] CO2 [Moles/Vol] 24 mmol/L Normal 21-31 [facility] Comment on above: Performed By: #### Rod BLOOM CHM7 ####[facility] (DEFAULT)[address] [place] [address] Creatinine [Mass/Vol] 1.13 mg/dL Normal 0.70-1.30 [facility] Comment on above: Performed By: #### Rod BLOOM CHM7 ####[facility] (DEFAULT)[address] [facility] [place] [address] GFR/1.73 sq M.predicted among non-blacks MDRD (S/P/Bld) [Vol rate/Area] 78 mL/min/{1.73_m2} Normal >=60 [facility] Comment on above: Result Comment: Repo rted eGFR is based on the CKD-EPI 2020 equation using creatinine, age, and sex. Performed By: #### TJ RAMÍREZ7 ####[facility] (DEFAULT)[address] [place] [address] Glucose [Mass/Vol] 86 mg/dL Normal 70-99 [facility] Comment on above: Performed By: #### Rod BLOOM CHM7 ####[facility] (DEFAULT)[address] [place] [address] Osmolality [Osmolality] 293 mosm/kg Normal 278-305 [facility] Comment on above: Performed By: #### Rod BLOOM CHM7 ####[facility] (DEFAULT)[address] [place] [address] Potassium [Moles/Vol] 3.8 mmol/L Normal 3.5-5.0 [facility] Comment on above: Performed By: #### Rod BLOOM CHM7 ####[facility] (DEFAULT)[address] [place] [address] Sodium [Moles/Vol] 140 mmol/L Normal 135-145 [facility] Comment on above: Performed By: #### Rod BLOOM CHM7 ####[facility] (DEFAULT)[address] [facility] [place] [address] Urea nitrogen [Mass/Vol] 16 mg/dL Normal 7-25 [facility] Comment on above: Performed By: #### Rod BLOOM CHM7 ####[facility] (DEFAULT)[address] [place] [address] Urea nitrogen/Creatinine [Mass ratio] 14 mg/mg Normal [facility] Comment on above: Performed By: #### Rod BLOOM CHM7 ####[facility] (DEFAULT)[address] [place] [address] Anion gap [Moles/Vol] 14 mmol/L 7 - 17 mmol/L [facility] Chloride [Moles/Vol] 106 mmol/L 98 - 10 8 mmol/L [facility] CO2 [Moles/Vol] 24 mmol/L 21 - 31 mmol/L [facility] Creatinine [Mass/Vol] 1.13 mg/dL 0.70 - 1.30 mg/dL [facility] eGFR, CKD-EPI, Male 78 - PINF [facility] Comment on above: Reported eGFR is bas ed on the CKD-EPI 2020 equation using creatinine, age, and sex. Glucose [Mass/Vol] 86 mg/dL 70 - 99 mg/dL [facility] Osmolality Calc [Osmolality] 293 [facility] Potassium [Moles/Vol] 3.8 mmol/L 3.5 - 5.0 mmol/L [facility] Sodium [Moles/Vol] 140 mmol/L 135 - 145 mmol/L [facility] Urea nitrogen [Mass/Vol] 16 mg/dL 7 - 25 mg/dL [facility] Urea nitrogen/Creatinine [Mass ratio] 14 mg/mg [facility] EBV BY PCR, QUANTITATIVE,BLO ODon 01-19-2024 Ebv By Pcr, Quant, Blood <1000 Normal <1000 [facility] Comment on above: Order Comment: This test was performed using a real time PCR assay. The dynamic range for this assay is 1000-5,000,000 IU/mL. A result <1000 IU/mL does not rule out the presence of EBV DNA in quantities below the sensitivity of this assay. This test was developed and its performance characteristics determined by [facility] at [facility]. It has not been cleared or approved by the FDA. The laboratory is regulated under CLIA as qualified to perform high-complexity testing. This test is used for clinical purposes. It should not be regarded as investigational or for research. Performed By: #### E BVPCR ####[facility] (DEFAULT)[address] [place] [address] HISTOPLASMA AND BLASTOMYCES ANTIGEN, ENZYME IMMUNOASSAY, SERMon 01-19-2024 Histoplasma/Blastomy antonia Ag Result Not detected Not Detected [facility] Comment on above: No antigen from Hist oplasma or Blastomyces detected. False negative results may occur depending on extent of disease, and/or site of infection. Repeat testing on a new specimen if clinically indicated. Histoplasma/Blastomy antonia Ag Value Not detected ng/mL [facility] Comment on above: ADDITIONAL INFORMATION This test was developed and its performance characteristics determined by [facility] in a manner consistent with CLIA requirements. This test has not been cleared or approved by the U.S. Food and Drug Administration. Test Performed by: [facility] [place] [address] [place] [address] [employer]ress Supervisor: Rosendo Bose M.D. Ph.D.; CLIA# [id number] [facility] MAGNESIUMon 01-19-2024 Magnesium [Mass/Vol] 1.8 mg/dL Normal 1.6-2.6 [facility] Comment on above: Performed By: #### M GO, CHM7 ####[facility] (DEFAULT)[address] [place] [address] Interpretation and review of laboratory results Normal [facility] Magnesium [Mass/Vol] 1.8 mg/dL 1.6 - 2 .6 mg/dL [facility] No Panel Informationon 01-19 [facility] TACROLIMUS LEVEL, TROUGH (MT E DRUG LEVEL)Ordered By: Raymundo Mehta on 01-19-2024 Interpretation and review of laboratory results Normal [facility] Tacrolimus (Bld) [Mass/Vol] 6.8 ng/mL Bone Marrow Transplant: 4.0-12.0, Therapeutic: 5.0-15.0 [facility] Method performed is a chemiluminescent microparticle immunoasssay on the [employer] i2000. The range is based on experience at [facility] and users should be aware that target concentrations vary widely depending on concomitant therapy, time post-transplant, and desired degree of immunosuppression. [facility] TACROLIMUS LEVEL, TROUGH (MT E DRUG LEVEL)on 01-19-2024 Tacrolimus, Trough 6.8 ng/mL Normal Bone Susana ow Transplant: 4.0-12.0, Therapeutic: 5.0-15.0 [facility] Comment on above: Order Comment: Pleas e draw at specified interval PRIOR to dose. Do not hold dose to wait for level. Specimens batched twice per day, (M-F) and once per day weekendsMethod performed is a chemiluminescent microparticle immunoasssay on the [employer] i2000.The range is based on experience at [facility] and users should be aware that target concentrations vary widely depending on concomitant therapy, time post-transplant, and desired degree of immunosuppression. Performed By: #### T ACRO ####[facility] (DEFAULT)[address] [place] [address] US AV fistulaOrdered By: Diana Reyes on 01-19-2024 [facility] Work Phone: US AV fistulaon 01-19-2024 Radiology Study observation (narrative) [facility] AFP TUMOR MARKEROrdered By: Francisca Alaniz on 01-18-2024 AFP.tumor marker [Mass/Vol] ng/mL NINF - 8.1 ng/mL [facility] Comment on above: This test was perfor med on the [employer] IM Immunoassay platform by [employer] which is a two-site sandwich chemiluminescent immunoassay. It is important to note that assays using different manufacturers and/or methods may not be comparable. Interpretation and review of laboratory results Normal [facility] CBC,PLATELETSon 01-18-2024 Hematocrit (Bld) [Volume fraction] 38.4 % Low 39.6-48.8 [facility] Comment on above: Performed By: #### H EMOGC ####[facility] (DEFAULT)[address] [place] [address] Hemoglobin (Bld) [Mass/Vol] 12.1 g/dL Low 13.4-16.8 [facility] Comment on above: Performed By: #### H EMOGC ####[facility] (DEFAULT)[address] [facility] [place] [address] MCV (RBC) [Entitic vol] 88.3 fL Normal 79.0-94.5 [facility] Comment on above: Performed By: #### H EMOGC ####[facility] (DEFAULT)[address] [facility] [place] [address] Mean Cell Hgb 27.8 pg Normal 26.1-33.3 [facility] Comment on above: Performed By: #### H EMOGC ####[facility] (DEFAULT)[address] [place] [address] Mean Cell Hgb Conc 31.5 g/dL Low 31.9-36.5 [facility] Comment on above: Performed By: #### H EMOGC ####[facility] (DEFAULT)[address] [place] [address] Platelet mean volume (Bld) [Entitic vol] 10.4 fL Normal 8.7-12.3 [facility] Comment on above: Performed By: #### H EMOGC ####[facility] (DEFAULT)[address] [place] [address] Platelets (Bld) [#/Vol] 183 10*3/uL Normal 146-337 [facility] Comment on above: Performed By: #### H EMO ####[facility] (DEFAULT)[address] [place] [address] RBC (Bld) [#/Vol] 4.35 10*6/uL Low 4.38-5.83 [facility] Comment on above: Performed By: #### H EMO ####[facility] (DEFAULT)[address] [place] [address] RBC Distribution 13.9 % Normal 10.9-14.3 [facility] Comment on above: Performed By: #### H EMO ####[facility] (DEFAULT)[address] [place] [address] WBC (Bld) [#/Vol] 3.66 10*3/uL Low 3.73-10.10 [facility] Comment on above: Performed By: #### H EMO ####[facility] (DEFAULT)[address] [place] [address] Erythrocyte distribution width (RBC) [Ratio] 13.9 % 10.9 - 14.3 % [facility] Hematocrit (Bld) [Volume fraction] 38.4 % Low 39.6 - 48.8 % [facility] Hemoglobin (Bld) [Mass/Vol] 12.1 g/dL Low 13.4 - 16.8 g/dL [facility] Interpretation and review of laboratory results Abnormal [facility] MCH (RBC) [Entitic mass] 27.8 pg 26.1 - 33.3 pg [facility] MCHC (RBC) [Mass/Vol] 31.5 g/dL Low 31.9 - 36.5 g/dL [facility] MCV (RBC) [Entitic vol] 88.3 fL 79.0 - 94.5 fL [facility] Platelet mean volume (Bld) [Entitic vol] 10.4 fL 8.7 - 12.3 fL [facility] Platelets (Bld) [#/Vol] 183 10*3/uL 146 - 337 K/uL [facility] RBC (Bld) [#/Vol] 4.35 10*6/uL Low [facility] WBC (Bld) [#/Vol] 3.66 10*3/uL Low 3.73 - 10. 10 K/uL [facility] CHEM 7 (LYTES,BUN,CREA,GLUC) on 01-18-2024 Anion gap [Moles/Vol] 11 mmol/L Normal 7-17 [facility] Comment on above: Performed By: #### C HM7, HFP, MGO, TSHQR ####[facility] (DEFAULT)[address] [place] [address] Chloride [Moles/Vol] 108 mmol/L Normal 98-108 [facility] Comment on above: Performed By: #### C HM7, HFP, MGO, TSHQR ####[facility] (DEFAULT)[address] [place] [address] CO2 [Moles/Vol] 26 mmol/L Normal 21-31 [facility] Comment on above: Performed By: #### C HM7, HFP, MGO, TSHQR ####[facility] (DEFAULT)[address] [place] [address] Creatinine [Mass/Vol] 1.00 mg/dL Normal 0.70-1.30 [facility] Comment on above: Performed By: #### C HM7, HFP, MGO, TSHQR ####[facility] (DEFAULT)[address] [place] [address] eGFR, CKD-EPI, Male > Normal >=60 [facility] Comment on above: Result Comment: Repo rted eGFR is based on the CKD-EPI 2020 equation using creatinine, age, and sex. Performed By: #### C HM7, HFP, MGO, TSHQR ####[facility] (DEFAULT)[address] [place] [address] Glucose [Mass/Vol] 89 mg/dL Normal 70-99 [facility] Comment on above: Performed By: #### C HM7, HFP, MGO, TSHQR ####[facility] (DEFAULT)[address] [place] [address] Osmolality [Osmolality] 295 mosm/kg Normal 278-305 [facility] Comment on above: Performed By: #### C HM7, HFP, MGO, TSHQR ####[facility] (DEFAULT)[address] [place] [address] Potassium [Moles/Vol] 3.9 mmol/L Normal 3.5-5.0 [facility] Comment on above: Performed By: #### C HM7, HFP, MGO, TSHQR ####[facility] (DEFAULT)[address] [place] [address] Sodium [Moles/Vol] 141 mmol/L Normal 135-145 [facility] Comment on above: Performed By: #### C HM7, HFP, MGO, TSHQR ####[facility] (DEFAULT)[address] [place] [address] Urea nitrogen [Mass/Vol] 16 mg/dL Normal 7-25 [facility] Comment on above: Performed By: #### C HM7, HFP, MGO, TSHQR ####[facility] (DEFAULT)[address] [place] [address] Urea nitrogen/Creatinine [Mass ratio] 16 mg/mg Normal [facility] Comment on above: Performed By: #### C HM7, HFP, MGO, TSHQR ####[facility] (DEFAULT)[address] [place] [address] Anion gap [Moles/Vol] 11 mmol/L 7 - 17 mmol/L [facility] Chloride [Moles/Vol] 108 mmol/L 98 - 10 8 mmol/L [facility] CO2 [Moles/Vol] 26 mmol/L 21 - 31 mmol/L [facility] Creatinine [Mass/Vol] 1.00 mg/dL 0.70 - 1.30 mg/dL [facility] eGFR, CKD-EPI, Male - PINF [facility] Comment on above: Reported eGFR is bas ed on the CKD-EPI 2020 equation using creatinine, age, and sex. Glucose [Mass/Vol] 89 mg/dL 70 - 99 mg/dL [facility] Osmolality Calc [Osmolality] 295 [facility] Potassium [Moles/Vol] 3.9 mmol/L 3.5 - 5.0 mmol/L [facility] Sodium [Moles/Vol] 141 mmol/L 135 - 145 mmol/L [facility] Urea nitrogen [Mass/Vol] 16 mg/dL 7 - 25 mg/dL [facility] Urea nitrogen/Creatinine [Mass ratio] 16 mg/mg [facility] Cardiac echo study Procedure Ordered By: Gian Carlos on 01-18-2024 Ao ASC index 1.63 cm/m2 [facility] Work Phone: Ao peak meliton 1.46 m/s [facility] Work Phone: Ao SOV index 1.56 cm/m2 [facility] Work Phone: Ao STJ index 1.25 cm/m2 [facility] Work Phone: Ao VTI 35.74 cm [facility] Work Phone: Ascending [facility] 3.[facility] AV LVOT peak gradient 4 mmHg [facility] Work Phone: [facility] peak gradient 9 mmHG [facility] Work [facility]: AV valve area 3.09 cm2 [facility] Work Phone: [facility]ocity [facility]: [phone] VEGA (continuity Vmax) 3.01 cm2 [facility] Work Phone: VEGA (continuity VTI) 3.09 cm2 [facility] Work Phone: VEGA index (continuity Vmax) 1.45 m/s [facility] Work Phone: VEGA index (continuity VTI) 1.49 cm2/m2 [facility] Work Phone: Avg e' pk meliton 0.07 m/s [facility] Work Phone: Avg E/e' ratio 19.45 [facility] Work Phone: Body surface area Derived from formula 2.08 m2 [facility] Work Phone: BP EF 62 % [facility] Work Phone: DI (Vmax) 0.73 [facility] Work Phone: DI (VTI) 0.74 m/2 [facility] Work Phone: E wave decelartion time 180.38 msec [facility] Work Phone: e' lateral pk meliton 0.0789 m/s [facility] Work Phone: e' lateral pk meliton 0.08 m/s [facility] Work Phone: e' septal pk meliton 0.0653 m/s [facility] Work Phone: e' septal pk meliton 0.07 m/s [facility] Work Phone: E/A ratio 2.67 [facility] Work Phone: E/e' lateral ratio 17.62 [facility] Work Phone: E/e' septal ratio 21.29 [facility] Work Phone: EF SP 2CH 66 [facility] Work Phone: EF SP 4CH 58 [facility] Work Phone: FS 28 % 28 - 44 % [facility] Work Phone: IVC ostium 2.30 cm [facility] Work Phone: IVS 1.11 cm [facility] Work Phone: LA AREA 2CH 24.36 cm2 [facility] Work Phone: LA area 4CH 20.36 cm2 [facility] Work Phone: LA ESV BP (MOD) 64 [facility] Work Phone: LA ESV BP (MOD) index 31 mL/m2 [facility] Work Phone: LA ESV SP 2CH (MOD) 76 mL [facility] Work Phone: LA ESV SP 4CH (MOD) 53 mL [facility] Work Phone: LV EDV BP 180 [facility] Work Phone: LV EDV SP 2CH 190 mL [facility] Work Phone: LV EDV SP 4CH 166 mL [facility] Work Phone: LV ESV BP 69 [facility] Work Phone: LV ESV SP 2CH 65 [facility] Work Phone: LV ESV SP 4CH 70 mL [facility] Work Phone: LV mass 254.73 g [facility] Work Phone: LV Mass Index 122.5 g/m2 [facility] Work Phone: LV RWT 0.42 [facility] Work Phone: LV stroke volume BP (ml) 111 mL [facility] Work Phone: LV stroke volume index BP 53.37 mL/m2 [facility] Work Phone: LVIDD 5.53 cm [facility] Work Phone: LVIDS 3.97 cm [facility] Work Phone: LVOT area 4.15 cm2 [facility] Work Phone: [phone] LVOT diameter 2.30 cm [facility] Work Phone: LVOT peak meliton 1.06 m/s [facility] Work Phone: LVOT peak VTI 26.61 cm [facility] Work Phone: LVOT stroke volume 111 cm3 [facility] Work Phone: [phone] LVOT stroke volume index 53.13 ml/m2 [facility] Work Phone: Mr max meliton 4.21 m/s [facility] Work Phone: MR VTI 134.50 cm [facility] Work Phone: MV mean gradient 3 mmHg [facility]: MV peak gradient 11 mmHg [facility] Work Phone: MV pk A meliton 0.52 m/s [facility] Work Phone: MV pk E meliton 1.39 m/s [facility] Work Phone: MV stenosis pressure 1/2 time 58.56 ms [facility] Work Phone: MV valve area by continuity eq 2.93 cm2 [facility] Work Phone: MV valve area p 1/2 method 3.76 cm2 [facility] Work Phone: MV VTI 37.70 cm [facility] Work Phone: MVA (continuity VTI) 2.92 cm [facility] Work Phone: [facility] AV VTI RATIO PRE STRESS 0.74 [facility] Work Phone: [facility] ECHO LV BIPLANE SYSTOLIC VOLUME INDEX 33.17 mL/m2 [facility] Work Phone: [facility] ECHO LV BP DIASTOLIC VOLUME INDEX 86.54 mL/m2 [facility] Work Phone: [facility] ECHO MR PEAK GRADIENT 70.94 mmHg [facility] Work Phone: PW 1.16 cm [facility] Work Phone: RA area 4CH (MOD) 14.50 cm2 [facility] Work Phone: RA vol index 4CH (MOD) 18.27 mL/m2 [facility] Work Phone: Right atrium volume 4 chamber method of disks 38 mL [facility] Work Phone: RV Area diastolic 33.20 cm2 [facility] Work Phone: RV Area systolic 21.30 cm2 [facility] Work [facility]: RV basal diam 4.52 cm [facility] Work Phone: RV Fractional area change 35.8 % [facility] Work Phone: RV long diam 8.96 cm [facility] Work Phone: RV mid diam 3.70 cm [facility] Work Phone: RV S' 22.01 cm/s [facility] Work Phone: RVOT peak gradient 4 mmHg [facility] Work Phone: RVOT peak meliton 0.96 m/s [facility] Work Phone: RVOT peak VTI 20.86 cm [facility] Work Phone: Sinus 3.24 cm [facility] Work Phone: STJ 2.61 cm [facility] Work Phone: Stroke Volume 111 cm/mL [facility] Work Phone: Stroke volume index [facility] Work [facility]: TAPSE 2.19 cm [facility] Work Phone: [facility] Work Phone: Cardiac echo study Procedure [...] echocardiography study was performed. Imaging system used: [employer]. Indications Indications for study: shortness of breath. [facility] Radiology Study observation (narrative) [facility] HEPATIC FUNCTION PANELon Albumin [Mass/Vol] 3.5 g/dL Normal 3.5-5.0 [facility] Comment on above: Performed By: #### C HM7, HFP, MGO, TSHQR ####[facility] (DEFAULT)[address] [place] [address] ALP [Catalytic activity/Vol] 70 U/L Normal 32-126 [facility] Comment on above: Performed By: #### C HM7, HFP, MGO, TSHQR ####[facility] (DEFAULT)[address] [place] [address] ALT [Catalytic activity/Vol] 8 U/L Low 10-52 [facility] Comment on above: Performed By: #### C HM7, HFP, MGO, TSHQR ####[facility] (DEFAULT)[address] [place] [address] AST [Catalytic activity/Vol] 20 U/L Normal 10-39 [facility] Comment on above: Performed By: #### C HM7, HFP, MGO, TSHQR ####[facility] (DEFAULT)[address] [place] [address] Bilirubin [Mass/Vol] 1.7 mg/dL High <1.5 [facility] Comment on above: Performed By: #### C HM7, HFP, MGO, TSHQR ####U [facility] (DEFAULT)[address] [place] [address] Bilirubin.indirect [Mass/Vol] 0.4 mg/dL High <0.3 [facility] Comment on above: Performed By: #### C HM7, HFP, MGO, TSHQR ####[facility] (DEFAULT)[address] [place] [address] Protein [Mass/Vol] 6.0 g/dL Low 6.4-8.3 [facility] Comment on above: Performed By: #### C HM7, HFP, MGO, TSHQR ####[facility] (DEFAULT)[address] [place] [address] Albumin [Mass/Vol] 3.5 g/dL 3.5 - 5.0 g/dL [facility] ALP [Catalytic activity/Vol] 70 U/L 32 - 126 U/L [facility] ALT [Catalytic activity/Vol] 8 U/L Low 10 - 52 U/L [facility] AST [Catalytic activity/Vol] 20 U/L 10 - 39 U/L [facility] Bilirubin [Mass/Vol] 1.7 mg/dL High NINF - 1.5 mg/dL [facility] Bilirubin.direct [Mass/Vol] 0.4 mg/dL High NINF - 0.3 mg/dL [facility] Protein [Mass/Vol] 6.0 g/dL Low 6.4 - 8.3 g/dL [facility] MAGNESIUMon 01-18-2024 Magnesium [Mass/Vol] 1.5 mg/dL Low 1.6-2.6 [facility] Comment on above: Performed By: #### C HM7, HFP, MGO, TSHQR ####[facility] (DEFAULT)[address] [facility] [place] [address] Magnesium [Mass/Vol] 1.5 mg/dL Low 1.6 - 2 .6 mg/dL [facility] No Panel Informationon 01-18 Interpretation and review of laboratory results Abnormal [facility] PT,INR,PTTon 01-18-2024 aPTT Coag (Bld) [Time] 30.0 s Normal 24.0-34.3 [facility] Comment on above: Performed By: #### P TPTT ####[facility] (DEFAULT)[address] [place] [address] INR Coag (PPP) [Relative time] 1.1 {INR} Normal 0.9-1.1 [facility] Comment on above: Performed By: #### P TPTT ####[facility] (DEFAULT)[address] [place] [address] PT Coag (PPP) [Time] 14.5 s High 11.9-14.2 [facility] Comment on above: Performed By: #### P TPTT ####[facility] (DEFAULT)[address] [place] [address], [place] [address] aPTT Coag (PPP) [Time] 30.0 s [facility] INR Coag (Bld) [Relative time] 1.1 {INR} 0.9 - 1.1 [facility] Interpretation and review of laboratory results Abnormal [facility] PT Coag (PPP) [Time] 14.5 s High [facility] TSH W/FT4 REFLEXon Interpretation and review of laboratory results Normal [facility] TSH Qn 2.660 m[IU]/L [facility] TSH 2.660 uIU/mL Normal 0.550-4.780 [facility] Comment on above: Performed By: #### C HM7, HFP, MGO, TSHQR ####[facility] (DEFAULT)[address] [place] [address] AFP TUMOR MARKERon AFP Tumor Marker <2.2 Normal <8.1 [facility] Comment on above: Result Comment: This test was performed on the [employer] IM Immunoassay platform by [employer] which is a two-site sandwich chemiluminescent immunoassay. It is important to note that assays using different manufacturers and/or methods may not be comparable. Performed By: #### A FPTMR ####[facility] (DEFAULT)[address] [place] [address] DARYL AURIS SCREEN BY PCRO rdered By: Mynor Alejandro on 01-17-2024 Daryl auris Screen by PCR Not detected Not Detected [facility] Interpretation and review of laboratory results Normal [facility] This test was perfor med using a real-time PCR assay. This test was developed, and its performance characteristics determined by [facility] at [facility]. It has not been cleared or approved by the FDA. The laboratory is regulated under CLIA as qualified to perform high-complexity testing. This test is used for clinical purposes. It should not be regarded as investigational or for research. [facility] CBC,PLATELETSon 01-17-2024 Hematocrit (Bld) [Volume fraction] 37.2 % Low 39.6-48.8 [facility] Comment on above: Performed By: #### H [facility] ####[facility] (DEFAULT)[address] [place] [address] Hemoglobin (Bld) [Mass/Vol] 12.0 g/dL Low 13.4-16.8 [facility] Comment on above: Performed By: #### H EMO ####[facility] (DEFAULT)[address] [facility] [place] [address] MCV (RBC) [Entitic vol] 86.5 fL Normal 79.0-94.5 [facility] Comment on above: Performed By: #### H EMOGC ####[facility] (DEFAULT)[address] [place] [address] Mean Cell Hgb 27.9 pg Normal 26.1-33.3 [facility] Comment on above: Performed By: #### H EMOGC ####[facility] (DEFAULT)[address] [place] [address] Mean Cell Hgb Conc 32.3 g/dL Normal 31.9-36.5 [facility] Comment on above: Performed By: #### H EMOGC ####[facility] (DEFAULT)[address] [place] [address] Platelet mean volume (Bld) [Entitic vol] 10.5 fL Normal 8.7-12.3 [facility] Comment on above: Performed By: #### H EMOGC ####[facility] (DEFAULT)[address] [facility] [place] [address] Platelets (Bld) [#/Vol] 159 10*3/uL Normal 146-337 [facility] Comment on above: Performed By: #### H EMOGC ####[facility] (DEFAULT)[address] [facility] [place] [address] RBC (Bld) [#/Vol] 4.30 10*6/uL Low 4.38-5.83 [facility] Comment on above: Performed By: #### H EMOGC ####[facility] (DEFAULT)[address] [place] [address] RBC Distribution 14.0 % Normal 10.9-14.3 [facility] Comment on above: Performed By: #### H EMOGC ####[facility] (DEFAULT)[address] [place] [address] WBC (Bld) [#/Vol] 3.69 10*3/uL Low 3.73-10.10 [facility] Comment on above: Performed By: #### H [facility] ####[facility] (DEFAULT)[address] [place] [address] Erythrocyte distribution width (RBC) [Ratio] 14.0 % 10.9 - 14.3 % [facility] Hematocrit (Bld) [Volume fraction] 37.2 % Low 39.6 - 48.8 % [facility] Hemoglobin (Bld) [Mass/Vol] 12.0 g/dL Low 13.4 - 16.8 g/dL [facility] Interpretation and review of laboratory results Abnormal [facility] MCH (RBC) [Entitic mass] 27.9 pg 26.1 - 33.3 pg [facility] MCHC (RBC) [Mass/Vol] 32.3 g/dL 31.9 - 36.5 g/dL [facility] MCV (RBC) [Entitic vol] 86.5 fL 79.0 - 94.5 fL [facility] Platelet mean volume (Bld) [Entitic vol] 10.5 fL 8.7 - 12.3 fL [facility] Platelets (Bld) [#/Vol] 159 10*3/uL 146 - 337 K/uL [facility] RBC (Bld) [#/Vol] 4.30 10*6/uL Low [facility] WBC (Bld) [#/Vol] 3.69 10*3/uL Low 3.73 - 10. 10 K/uL [facility] CHEM 7 (LYTES,BUN,CREA,GLUC) on 01-17-2024 Anion gap [Moles/Vol] 13 mmol/L Normal 7-17 [facility] Comment on above: Performed By: #### C HM7, HFP, MGO ####U [facility] (DEFAULT)[address] [place] [address] Chloride [Moles/Vol] 109 mmol/L High 98-108 [facility] Comment on above: Performed By: #### C TAVO MEDLEY, MGO ####U [facility] (DEFAULT)[address] [place] [address] CO2 [Moles/Vol] 21 mmol/L Normal 21-31 [facility] Comment on above: Performed By: #### C TAVO MEDLEY, MGO ####[facility] (DEFAULT)[address] [place] [address] Creatinine [Mass/Vol] 1.04 mg/dL Normal 0.70-1.30 [facility] Comment on above: Performed By: #### Chinedu MEDLEY, TAVO, MGO ####U [facility] (DEFAULT)[address] [place] [address] GFR/1.73 sq M.predicted among non-blacks MDRD (S/P/Bld) [Vol rate/Area] 86 mL/min/{1.73_m2} Normal >=60 [facility] Comment on above: Result Comment: Repo rted eGFR is based on the CKD-EPI 2020 equation using creatinine, age, and sex. Performed By: #### C JASMYNE, TAVO, MGO ####[facility] (DEFAULT)[address] [place] [address] Glucose [Mass/Vol] 82 mg/dL Normal 70-99 [facility] Comment on above: Performed By: #### Chinedu MEDLEY, HFP, MGO ####[facility] (DEFAULT)[address] [place] [address] Osmolality [Osmolality] 292 mosm/kg Normal 278-305 [facility] Comment on above: Performed By: #### C HMJessica, HFP, MGO ####[facility] (DEFAULT)[address] [place] [address] Potassium [Moles/Vol] 4.4 mmol/L Normal 3.5-5.0 [facility] Comment on above: Performed By: #### C HM7, HFP, MGO ####[facility] (DEFAULT)[address] [place] [address] Sodium [Moles/Vol] 139 mmol/L Normal 135-145 [facility] Comment on above: Performed By: #### C HM7, HFP, MGO ####[facility] (DEFAULT)[address] [facility] [place] [address] Urea nitrogen [Mass/Vol] 17 mg/dL Normal 7-25 [facility] Comment on above: Performed By: #### C HM7, HFP, MGO ####[facility] (DEFAULT)[address] [place] [address] Urea nitrogen/Creatinine [Mass ratio] 16 mg/mg Normal [facility] Comment on above: Performed By: #### C HM7, HFP, MGO ####[facility] (DEFAULT)[address] [place] [address] Anion gap [Moles/Vol] 13 mmol/L 7 - 17 mmol/L [facility] Chloride [Moles/Vol] 109 mmol/L High 98 - 10 8 mmol/L [facility] CO2 [Moles/Vol] 21 mmol/L 21 - 31 mmol/L [facility] Creatinine [Mass/Vol] 1.04 mg/dL 0.70 - 1.30 mg/dL [facility] eGFR, CKD-EPI, Male 86 - PINF [facility] Comment on above: Reported eGFR is bas ed on the CKD-EPI 2020 equation using creatinine, age, and sex. Glucose [Mass/Vol] 82 mg/dL 70 - 99 mg/dL [facility] Osmolality Calc [Osmolality] 292 [facility] Potassium [Moles/Vol] 4.4 mmol/L 3.5 - 5.0 mmol/L [facility] Sodium [Moles/Vol] 139 mmol/L 135 - 145 mmol/L [facility] Urea nitrogen [Mass/Vol] 17 mg/dL 7 - 25 mg/dL [facility] Urea nitrogen/Creatinine [Mass ratio] 16 mg/mg [facility] CT ABDOMEN/PELVIS WITHOUT CO NTRASTon 01-17-2024 CT ABDOMEN/PELVIS WITHOUT CONTRAST Normal [facility] CT Abdomen and Pelvis WO con traston [...] unremarkable. 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 Right lower quadrant [...] unremarkable. 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 Right lower quadrant [...] the middle lobe. Trace left pleural effusion. [facility] Radiology Study observation (narrative) [facility] HEPATIC FUNCTION PANELon Albumin [Mass/Vol] 3.5 g/dL Normal 3.5-5.0 [facility] Comment on above: Performed By: #### C HM7, HFP, MGO ####[facility] (DEFAULT)[address] [place] [address] ALP [Catalytic activity/Vol] 73 U/L Normal 32-126 [facility] Comment on above: Performed By: #### C HM7, HFP, MGO ####[facility] (DEFAULT)[address] [place] [address] ALT [Catalytic activity/Vol] 7 U/L Low 10-52 [facility] Comment on above: Performed By: #### C HM7, HFP, MGO ####[facility] (DEFAULT)[address] [place] [address] AST [Catalytic activity/Vol] 25 U/L Normal 10-39 [facility] Comment on above: Performed By: #### C HM7, HFP, MGO ####[facility] (DEFAULT)[address] [place] [address] Bilirubin [Mass/Vol] 1.8 mg/dL High <1.5 [facility] Comment on above: Performed By: #### C HMJessica, HFP, MGO ####[facility] (DEFAULT)[address] [place] [address] Bilirubin.indirect [Mass/Vol] 0.3 mg/dL High <0.3 [facility] Comment on above: Performed By: #### Chinedu HMJessica, HFP, MGO ####[facility] (DEFAULT)[address] [place] [address] Protein [Mass/Vol] 6.0 g/dL Low 6.4-8.3 [facility] Comment on above: Performed By: #### Chinedu HM7, HFP, MGO ####[facility] (DEFAULT)[address] [place] [address] Albumin [Mass/Vol] 3.5 g/dL 3.5 - 5.0 g/dL [facility] ALP [Catalytic activity/Vol] 73 U/L 32 - 126 U/L [facility] ALT [Catalytic activity/Vol] 7 U/L Low 10 - 52 U/L [facility] AST [Catalytic activity/Vol] 25 U/L 10 - 39 U/L [facility] Bilirubin [Mass/Vol] 1.8 mg/dL High NINF - 1.5 mg/dL [facility] Bilirubin.direct [Mass/Vol] 0.3 mg/dL High NINF - 0.3 mg/dL [facility] Protein [Mass/Vol] 6.0 g/dL Low 6.4 - 8.3 g/dL [facility] HISTOPLASMA AND BLASTOMYCES ANTIGEN, ENZYME IMMUNOASSAY, SERMon 01-17-2024 Histoplasma/Blastomy antonia Ag Result Not detected Normal Not Detected [facility] Comment on above: Result Comment: No a ntigen from Histoplasma or Blastomyces detected. Falsenegative results may occur depending on extent of disease,and/or site of infection. Repeat testing on a new specimenif clinically indicated. Performed By: #### H CORAL ####[facility] (DEFAULT)[address] [place] [address] Histoplasma/Blastomy antonia Ag Value Not detected Normal [facility] Comment on above: Result Comment: ---- ADDITIONAL INFORMATION This test was developed and its performance characteristicsdetermined by [facility] in a manner consistent with CLIArequirements. This test has not been cleared or approved bythe U.S. Food and Drug Administration.Test Performed by:[place] [id number] Director: Rosendo Bose M.D. Ph.D.; CLIA# [id number] Performed By: #### H ILYAG ####[facility] (DEFAULT)[address] [place] [address] MAGNESIUMon 01-17-2024 Magnesium [Mass/Vol] 1.7 mg/dL Normal 1.6-2.6 [facility] Comment on above: Performed By: #### C HM7, HFP, MGO ####[facility] (DEFAULT)[address] [place] [address] Interpretation and review of laboratory results Normal [facility] Magnesium [Mass/Vol] 1.7 mg/dL 1.6 - 2 .6 mg/dL [facility] No Panel Informationon 01-17 Interpretation and review of laboratory results Abnormal [facility] PT,INR,PTTon 01-17-2024 aPTT Coag (PPP) [Time] 29.9 s [facility] INR Coag (Bld) [Relative time] 1.1 {INR} 0.9 - 1.1 [facility] Interpretation and review of laboratory results Abnormal [facility] PT Coag (PPP) [Time] 14.5 s High [facility] aPTT Coag (Bld) [Time] 29.9 s Normal 24.0-34.3 [facility] Comment on above: Performed By: #### P TPTT ####[facility] (DEFAULT)[address] [place] [address] INR Coag (PPP) [Relative time] 1.1 {INR} Normal 0.9-1.1 [facility] Comment on above: Performed By: #### P TPTT ####[facility] (DEFAULT)[address] [place] [address] PT Coag (PPP) [Time] 14.5 s High 11.9-14.2 [facility] Comment on above: Performed By: #### P TPTT ####[facility] (DEFAULT)[address] [place] [address] B-TYPE NATRIURETIC PEPTIDE ( BRAIN)on 01-16-2024 Interpretation and review of laboratory results Abnormal [facility] Natriuretic peptide B (Bld) [Mass/Vol] 212 pg/mL High 0 - 100 pg/mL [facility] Natriuretic peptide B (Bld) [Mass/Vol] 212 pg/mL High 0-100 [facility] Comment on above: Performed By: #### B EMS INSTRUCTOR ####[facility] (DEFAULT)[address] [place] [address] CALCIUMon 01-16-2024 Calcium [Mass/Vol] 8.5 mg/dL Low 8.6-10.5 [facility] Comment on above: Performed By: #### C A, CHM7, IPB, MGO, HFP ####[facility] (DEFAULT)[address] [place] [address] Calcium [Mass/Vol] 8.5 mg/dL Low 8.6 - 10. 5 mg/dL [facility] DARYL AURIS SCREEN BY PCRo n 01-16-2024 Daryl auris Screen by PCR Not detected Normal Not Detected [facility] Comment on above: Order Comment: This test was performed using a real-time PCR assay. This test was developed, and its performance characteristics determined by [facility] at [facility]. It has not been cleared or approved by the FDA. The laboratory is regulated under CLIA as qualified to perform high-complexity testing. This test is used for clinical purposes. It should not be regarded as investigational or for research. Performed By: #### C ANDIDA AURIS SCREEN BY PCR ####[facility] (DEFAULT)[address] [place] [address] CBC AND ELECTRONIC DIFFon Abs Baso Auto < Normal 0.00-0.09 [facility] Comment on above: Performed By: #### L AB980 ####[facility] (DEFAULT)[address] [place] [address] Basophils/100 WBC (Bld) 0.6 % Normal [facility] Comment on above: Performed By: #### L AB980 ####[facility] (DEFAULT)[address] [place] [address] DIFF STATUS Electronic Differential Normal [facility] Comment on above: Performed By: #### L AB980 ####[facility] (DEFAULT)[address] [place] [address] Eosinophils (Bld) [#/Vol] 0.09 10*3/uL Normal 0.00-0.48 [facility] Comment on above: Performed By: #### L AB980 ####[facility] (DEFAULT)[address] [place] [address] Eosinophils/100 WBC (Bld) 2.5 % Normal [facility] Comment on above: Performed By: #### L AB980 ####[facility] (DEFAULT)[address] [place] [address] Hematocrit (Bld) [Volume fraction] 37.4 % Low 39.6-48.8 [facility] Comment on above: Performed By: #### L AB980 ####[facility] (DEFAULT)[address] [place] [address] Hemoglobin (Bld) [Mass/Vol] 12.1 g/dL Low 13.4-16.8 [facility] Comment on above: Performed By: #### L AB980 ####[facility] (DEFAULT)[address] [place] [address] Immature Grans % 0.3 % Normal [facility] Comment on above: Performed By: #### L AB980 ####[facility] (DEFAULT)[address] [place] [address], [place] [address] Immature Grans Absolute < Normal <=0.07 [facility] Comment on above: Performed By: #### L AB980 ####[facility] (DEFAULT)[address] [place] [address] Lymphocytes (Bld) [#/Vol] 1.16 10*3/uL Normal 0.83-3.57 [facility] Comment on above: Performed By: #### L AB980 ####[facility] (DEFAULT)[address] [place] [address] Lymphocytes/100 WBC (Bld) 32.0 % Normal [facility] Comment on above: Performed By: #### L AB980 ####[facility] (DEFAULT)[address] [place] [address] MCV (RBC) [Entitic vol] 87.8 fL Normal 79.0-94.5 [facility] Comment on above: Performed By: #### L AB980 ####[facility] (DEFAULT)[address] [place] [address] Mean Cell Hgb 28.4 pg Normal 26.1-33.3 [facility] Comment on above: Performed By: #### L AB980 ####[facility] (DEFAULT)[address] [place] [address] Mean Cell Hgb Conc 32.4 g/dL Normal 31.9-36.5 [facility] Comment on above: Performed By: #### L AB980 ####[facility] (DEFAULT)[address] [place] [address] Monocytes (Bld) [#/Vol] 0.43 10*3/uL Normal 0.24-0.93 [facility] Comment on above: Performed By: #### L AB980 ####[facility] (DEFAULT)[address] [place] [address] Monocytes/100 WBC (Bld) 11.9 % Normal [facility] Comment on above: Performed By: #### L AB980 ####[facility] (DEFAULT)[address] [place] [address] Nucleated RBC 0.0 /100 WBC Normal <=0.2 [facility] Comment on above: Performed By: #### L AB980 ####[facility] (DEFAULT)[address] [place] [address] Platelet mean volume (Bld) [Entitic vol] 10.1 fL Normal 8.7-12.3 [facility] Comment on above: Performed By: #### L AB980 ####[facility] (DEFAULT)[address] [place] [address] Platelets (Bld) [#/Vol] 155 10*3/uL Normal 146-337 [facility] Comment on above: Performed By: #### L AB980 ####[facility] (DEFAULT)[address] [place] [address] RBC (Bld) [#/Vol] 4.26 10*6/uL Low 4.38-5.83 [facility] Comment on above: Performed By: #### L AB980 ####[facility] (DEFAULT)[address] [place] [address] RBC Distribution 14.0 % Normal 10.9-14.3 [facility] Comment on above: Performed By: #### L AB980 ####[facility] (DEFAULT)[address] [place] [address] Segs + Bands Auto 52.7 % Normal [facility] Comment on above: Performed By: #### L AB980 ####[facility] (DEFAULT)[address] [place] [address] Segs + Bands,Absolute Auto 1.91 K/uL Normal 1.57-6.19 [facility] Comment on above: Performed By: #### L AB980 ####[facility] (DEFAULT)[address] [place] [address] WBC (Bld) [#/Vol] 3.62 10*3/uL Low 3.73-10.10 [facility] Comment on above: Performed By: #### L AB980 ####[facility] (DEFAULT)[address] [place] [address] Basophils (Bld) [#/Vol] K/uL 0.00 - 0.09 K/uL [facility] Basophils/100 WBC (Bld) 0.6 % [facility] Differential cell count method Nom (Bld) Electronic Differential [facility] Eosinophils (Bld) [#/Vol] 0.09 10*3/uL 0.00 - 0.48 K/uL [facility] Eosinophils/100 WBC (Bld) 2.5 % [facility] Erythrocyte distribution width (RBC) [Ratio] 14.0 % 10.9 - 14.3 % [facility] Hematocrit (Bld) [Volume fraction] 37.4 % Low 39.6 - 48.8 % [facility] Hemoglobin (Bld) [Mass/Vol] 12.1 g/dL Low 13.4 - 16.8 g/dL [facility] Immature granulocytes (Bld) [#/Vol] K/uL NINF - 0.07 K/uL [facility] Immature granulocytes/100 WBC (Bld) 0.3 % [facility] Interpretation and review of laboratory results Abnormal [facility] Lymphocytes (Bld) [#/Vol] 1.16 10*3/uL 0.83 - 3.57 K/uL [facility] Lymphocytes/100 WBC (Bld) 32.0 % [facility] MCH (RBC) [Entitic mass] 28.4 pg 26.1 - 33.3 pg [facility] MCHC (RBC) [Mass/Vol] 32.4 g/dL 31.9 - 36.5 g/dL [facility] MCV (RBC) [Entitic vol] 87.8 fL 79.0 - 94.5 fL [facility] Monocytes (Bld) [#/Vol] 0.43 10*3/uL 0.24 - 0.93 K/uL [facility] Monocytes/100 WBC (Bld) 11.9 % [facility] Neutrophils (Bld) [#/Vol] 1.91 10*3/uL 1.57 - 6.19 K/uL [facility] Nucleated RBC/100 WBC (Bld) [Ratio] 0.0 % [facility] Platelet mean volume (Bld) [Entitic vol] 10.1 fL 8.7 - 12.3 fL [facility] Platelets (Bld) [#/Vol] 155 10*3/uL 146 - 337 K/uL [facility] RBC (Bld) [#/Vol] 4.26 10*6/uL Low [facility] Segmented neutrophils/100 WBC (Bld) 52.7 % [facility] WBC (Bld) [#/Vol] 3.62 10*3/uL Low 3.73 - 10. 10 K/uL [facility] CHEM 7 (LYTES,BUN,CREA,GLUC) on 01-16-2024 Anion gap [Moles/Vol] 11 mmol/L Normal 7-17 [facility] Comment on above: Performed By: #### C A, CHM7, IPB, MGO, HFP ####[facility] (DEFAULT)[address] [place] [address] Chloride [Moles/Vol] 108 mmol/L Normal 98-108 [facility] Comment on above: Performed By: #### C A, CHM7, IPB, MGO, HFP ####[facility] (DEFAULT)[address] [place] [address] CO2 [Moles/Vol] 24 mmol/L Normal 21-31 [facility] Comment on above: Performed By: #### C A, CHM7, IPB, MGO, HFP ####[facility] (DEFAULT)[address] [place] [address] Creatinine [Mass/Vol] 1.04 mg/dL Normal 0.70-1.30 [facility] Comment on above: Performed By: #### C A, CHM7, IPB, MGO, HFP ####[facility] (DEFAULT)[address] [place] [address] GFR/1.73 sq M.predicted among non-blacks MDRD (S/P/Bld) [Vol rate/Area] 86 mL/min/{1.73_m2} Normal >=60 [facility] Comment on above: Result Comment: Repo rted eGFR is based on the CKD-EPI 2020 equation using creatinine, age, and sex. Performed By: #### C A, CHM7, IPB, MGO, HFP ####[facility] (DEFAULT)[address] [place] [address] Glucose [Mass/Vol] 95 mg/dL Normal 70-99 [facility] Comment on above: Performed By: #### C Tray, CHM7, IPB, MGO, HFP ####[facility] (DEFAULT)[address] [place] [address] Osmolality [Osmolality] 293 mosm/kg Normal 278-305 [facility] Comment on above: Performed By: #### C Tray, CHM7, IPB, MGO, HFP ####[facility] (DEFAULT)[address] [place] [address] Potassium [Moles/Vol] 4.0 mmol/L Normal 3.5-5.0 [facility] Comment on above: Performed By: #### C Tray, CHM7, IPB, MGO, HFP ####[facility] (DEFAULT)[address] [place] [address] Sodium [Moles/Vol] 139 mmol/L Normal 135-145 [facility] Comment on above: Performed By: #### C Tray, CHM7, IPB, MGO, HFP ####[facility] (DEFAULT)[address] [place] [address] Urea nitrogen [Mass/Vol] 19 mg/dL Normal 7-25 [facility] Comment on above: Performed By: #### C Tray, CHM7, IPB, MGO, HFP ####[facility] (DEFAULT)[address] [place] [address] Urea nitrogen/Creatinine [Mass ratio] 18 mg/mg Normal [facility] Comment on above: Performed By: #### C A, CHM7, IPB, MGO, HFP ####[facility] (DEFAULT)[address] [place] [address] Anion gap [Moles/Vol] 11 mmol/L 7 - 17 mmol/L [facility] Chloride [Moles/Vol] 108 mmol/L 98 - 10 8 mmol/L [facility] CO2 [Moles/Vol] 24 mmol/L 21 - 31 mmol/L [facility] Creatinine [Mass/Vol] 1.04 mg/dL 0.70 - 1.30 mg/dL [facility] eGFR, CKD-EPI, Male 86 - PINF [facility] Comment on above: Reported eGFR is bas ed on the CKD-EPI 2020 equation using creatinine, age, and sex. Glucose [Mass/Vol] 95 mg/dL 70 - 99 mg/dL [facility] Osmolality Calc [Osmolality] 293 [facility] Potassium [Moles/Vol] 4.0 mmol/L 3.5 - 5.0 mmol/L [facility] Sodium [Moles/Vol] 139 mmol/L 135 - 145 mmol/L [facility] Urea nitrogen [Mass/Vol] 19 mg/dL 7 - 25 mg/dL [facility] Urea nitrogen/Creatinine [Mass ratio] 18 mg/mg [facility] D-DIMER,QUANTITATIVEon 01-16 D-Dimer, High Sensitivity 0.67 mcg/mL FEU High <0.50 [facility] Comment on above: Result Comment: The D-Dimer assay is intended for use in conjuction with a clinical pretest probability (PTP) assessment model to exclude pulmonary embolism (PE) and as an aid in the diagnosis of Deep Vein Thrombosis (DVT) in outpatients suspected of PE or DVT. For the assay in use at [facility] ([facility]), a cutoff of <0.50 mcg/mL has a Negative Predictive Value of 99.7% for exclusion of DVT in low and moderate PTP patients. Performed By: #### P TPTT, HSDDI ####[facility] (DEFAULT)[address] [place] [address] D-DIMER,QUANTITATIVEOrdered By: Shaji Kelly on 01-16-2024 Fibrin D-dimer FEU (PPP) [Mass/Vol] 0.67 High NINF [facility] Comment on above: The D-Dimer assay is intended for use in conjuction with a clinical pretest probability (PTP) assessment model to exclude pulmonary embolism (PE) and as an aid in the diagnosis of Deep Vein Thrombosis (DVT) in outpatients suspected of PE or DVT. For the assay in use at [facility] ([facility]), a cutoff of <0.50 mcg/mL has a Negative Predictive Value of 99.7% for exclusion of DVT in low and moderate PTP patients. Interpretation and review of laboratory results Abnormal [facility] HEPATIC FUNCTION PANELon Albumin [Mass/Vol] 3.7 g/dL Normal 3.5-5.0 [facility] Comment on above: Performed By: #### C A, CHM7, IPB, MGO, HFP ####[facility] (DEFAULT)[address] [place] [address] ALP [Catalytic activity/Vol] 70 U/L Normal 32-126 [facility] Comment on above: Performed By: #### C A, CHM7, IPB, MGO, HFP ####[facility] (DEFAULT)[address] [place] [address] ALT [Catalytic activity/Vol] 8 U/L Low 10-52 [facility] Comment on above: Performed By: #### C A, CHM7, IPB, MGO, HFP ####[facility] (DEFAULT)[address] [place] [address] AST [Catalytic activity/Vol] 21 U/L Normal 10-39 [facility] Comment on above: Performed By: #### C A, CHM7, IPB, MGO, HFP ####[facility] (DEFAULT)[address] [place] [address] Bilirubin [Mass/Vol] 1.9 mg/dL High <1.5 [facility] Comment on above: Performed By: #### C A, CHM7, IPB, MGO, HFP ####[facility] (DEFAULT)[address] [place] [address] Bilirubin.indirect [Mass/Vol] 0.4 mg/dL High <0.3 [facility] Comment on above: Performed By: #### NATHANIEL Willis, CASTROB, MGO, HFP ####[facility] (DEFAULT)[address] [place] [address] Protein [Mass/Vol] 6.1 g/dL Low 6.4-8.3 [facility] Comment on above: Performed By: #### NATHANIEL Willis, IPB, MGO, HFP ####[facility] (DEFAULT)[address] [place] [address] Albumin [Mass/Vol] 3.7 g/dL 3.5 - 5.0 g/dL [facility] ALP [Catalytic activity/Vol] 70 U/L 32 - 126 U/L [facility] ALT [Catalytic activity/Vol] 8 U/L Low 10 - 52 U/L [facility] AST [Catalytic activity/Vol] 21 U/L 10 - 39 U/L [facility] Bilirubin [Mass/Vol] 1.9 mg/dL High NINF - 1.5 mg/dL [facility] Bilirubin.direct [Mass/Vol] 0.4 mg/dL High NINF - 0.3 mg/dL [facility] Protein [Mass/Vol] 6.1 g/dL Low 6.4 - 8.3 g/dL [facility] MAGNESIUMon 01-16-2024 Magnesium [Mass/Vol] 1.7 mg/dL Normal 1.6-2.6 [facility] Comment on above: Performed By: #### NATHANIEL Willis, CASTROB, MGO, HFP ####[facility] (DEFAULT)[address] [place] [address] Magnesium [Mass/Vol] 1.7 mg/dL 1.6 - 2 .6 mg/dL [facility] No Panel Informationon 01-16 Interpretation and review of laboratory results Abnormal [facility] Interpretation and review of laboratory results Normal [facility] PHOSPHATE, INORGANICon 01-16 Phosphorous 4.1 mg/dL Normal 2.2-4.6 [facility] Comment on above: Performed By: #### C A, CHM7, IPB, MGO, HFP ####[facility] (DEFAULT)[address] [place] [address] Phosphate [Mass/Vol] 4.1 mg/dL 2.2 - 4 .6 mg/dL [facility] PT,INR,PTTon 01-16-2024 aPTT Coag (Bld) [Time] 29.6 s Normal 24.0-34.3 [facility] Comment on above: Performed By: #### P TPTT, HSDDI ####[facility] (DEFAULT)[address] [place] [address] INR Coag (PPP) [Relative time] 1.2 {INR} High 0.9-1.1 [facility] Comment on above: Performed By: #### P TPTT, HSDDI ####[facility] (DEFAULT)[address] [place] [address] PT Coag (PPP) [Time] 14.9 s High 11.9-14.2 [facility] Comment on above: Performed By: #### P TPTT, HSDDI ####[facility] (DEFAULT)[address] [place] [address] aPTT Coag (PPP) [Time] 29.6 s [facility] INR Coag (Bld) [Relative time] 1.2 {INR} High 0.9 - 1.1 [facility] Interpretation and review of laboratory results Abnormal [facility] PT Coag (PPP) [Time] 14.9 s High [facility] TACROLIMUS LEVEL, TROUGH (MT E DRUG LEVEL)Ordered By: Jimy Castillo on 01-16-2024 Interpretation and review of laboratory results Normal [facility] Tacrolimus (Bld) [Mass/Vol] 5.7 ng/mL Bone Marrow Transplant: 4.0-12.0, Therapeutic: 5.0-15.0 [facility] Method performed is a chemiluminescent microparticle immunoasssay on the [employer] i2000. The range is based on experience at [facility] and users should be aware that target concentrations vary widely depending on concomitant therapy, time post-transplant, and desired degree of immunosuppression. [facility] TACROLIMUS LEVEL, TROUGH (MT E DRUG LEVEL)on 01-16-2024 Tacrolimus, Trough 5.7 ng/mL Normal Bone Susana ow Transplant: 4.0-12.0, Therapeutic: 5.0-15.0 [facility] Comment on above: Order Comment: Pleas e draw at specified interval PRIOR to dose. Do not hold dose to wait for level. Specimens batched twice per day, (M-) and once per day weekendsMethod performed is a chemiluminescent microparticle immunoasssay on the [employer] i2000.The range is based on experience at [facility] and users should be aware that target concentrations vary widely depending on concomitant therapy, time post-transplant, and desired degree of immunosuppression. Performed By: #### T ACRO ####[facility] (DEFAULT)[address] [place] [address] US ABDOMEN LIVER DOPPLERon 0 01-16-2024 US ABDOMEN LIVER DOPPLER Normal [facility] US.doppler Abdominal vessels on 01-16-2024 IMPRESSION: 1. [...] pleural effusion. Trace right upper quadrant ascites. [facility] Radiology Study observation (narrative) [facility] US.doppler Abdominal vessels Ordered By: Iona Duran on 01-16-2024 [facility] Work Phone: XR CHEST PA AND LATERAL 2 EWSon 01-16-2024 XR CHEST PA AND LATERAL 2 VIEWS Normal [facility] XR Chest PA and Lateralon IMPRESSION: Moderate [...] Normal IMPRESSION IMPRESSION: Moderate right pleural effusion. [facility] Radiology Study observation (narrative) [facility] XR Chest PA and LateralOrder ed By: Daisha Patterson on 01-16-2024 [facility] Work Phone: ALL CBC WITH AUTO DIFFon BASOPHILS ABSOLUTE AUTO 0.0 [facility] Basophils/100 WBC (Bld) 0.5 % 0.2 - 2.0 % [facility] Eosinophils/100 WBC (Bld) 2.8 % 0.9 - 7.0 % [facility] Erythrocyte distribution width (RBC) [Ratio] 13.8 % 11.0 - 15.0 % [facility] Hematocrit (Bld) [Volume fraction] 43.7 % 42.0 - 54.0 % [facility] Hemoglobin (Bld) [Mass/Vol] 14.0 g/dL 14.0 - 18.0 g/dL [facility] IMMATURE GRANULOCYTES ABS AUTO 0.01 [facility] Immature granulocytes/100 WBC (Bld) 0.3 % 0.0 - 0.5 % [facility] LYMPHOCYTES ABSOLUTE AUTO 1.5 [facility] Lymphocytes/100 WBC (Bld) 37.5 % 20.5 - 60.0 % [facility] MCH (RBC) [Entitic mass] 28.4 pg 25.9 - 34.0 pg [facility] MCHC (RBC) [Mass/Vol] 32.0 g/dL 29.9 - 35.2 g/dL [facility] MCV (RBC) [Entitic vol] 88.6 fL 80.0 - 94.0 fL [facility] MONOCYTES ABSOLUTE AUTO 0.5 [facility] Monocytes/100 WBC (Bld) 11.9 % 1.7 - 12.0 % [facility] NEUTROPHILS ABSOLUTE AUTO 1.9 [facility] Neutrophils/100 WBC (Bld) 47.0 % 43.0 - 75.0 % [facility] Platelet mean volume (Bld) [Entitic vol] 10.3 fL 9.5 - 13.5 fL [facility] TBH EO # 0.1 [facility] TBH PLT 180 [facility] TB RBC 4.93 [facility] TBH WBC 4.0 [facility] ALL CBC WITH AUTO DIFFon BASOPHILS ABSOLUTE AUTO 0.0 [facility] Basophils/100 WBC (Bld) 0.5 % 0.2 - 2.0 % [facility] Eosinophils/100 WBC (Bld) 2.6 % 0.9 - 7.0 % [facility] Erythrocyte distribution width (RBC) [Ratio] 13.5 % 11.0 - 15.0 % [facility] Hematocrit (Bld) [Volume fraction] 43.8 % 42.0 - 54.0 % [facility] Hemoglobin (Bld) [Mass/Vol] 14.0 g/dL 14.0 - 18.0 g/dL [facility] IMMATURE GRANULOCYTES ABS AUTO 0.00 [facility] Immature granulocytes/100 WBC (Bld) 0.0 % 0.0 - 0.5 % [facility] Interpretation and review of laboratory results Abnormal [facility] LYMPHOCYTES ABSOLUTE AUTO 1.8 [facility] Lymphocytes/100 WBC (Bld) 45.2 % 20.5 - 60.0 % [facility] MCH (RBC) [Entitic mass] 27.9 pg 25.9 - 34.0 pg [facility] MCHC (RBC) [Mass/Vol] 32.0 g/dL 29.9 - 35.2 g/dL [facility] MCV (RBC) [Entitic vol] 87.4 fL 80.0 - 94.0 fL [facility] MONOCYTES ABSOLUTE AUTO 0.4 [facility] Monocytes/100 WBC (Bld) 9.6 % 1.7 - 12.0 % [facility] NEUTROPHILS ABSOLUTE AUTO 1.6 [facility] Neutrophils/100 WBC (Bld) 42.1 % Low 43.0 - 75.0 % [facility] Platelet mean volume (Bld) [Entitic vol] 9.8 fL 9.5 - 13.5 fL [facility] TBH EO # 0.1 [facility] TBH PLT 180 [facility] TB RBC 5.01 [facility] TB WBC 3.9 Low [facility] CHEM 7 (LYTES,BUN,CREA,GLUC) on 09-11-2023 Anion gap [Moles/Vol] 13 mmol/L Normal 7-17 [facility] Comment on above: Performed By: #### NATHANIEL RAMÍREZ ####[facility] (DEFAULT)[address] [place] [address] Chloride [Moles/Vol] 111 mmol/L High 98-108 [facility] Comment on above: Performed By: #### NATHANIEL RAMÍREZ ####[facility] (DEFAULT)[address] [facility] [place] [address] CO2 [Moles/Vol] 20 mmol/L Low 21-31 [facility] Comment on above: Performed By: #### Rod BLOOM CHM7 ####[facility] (DEFAULT)[address] [place] [address] Creatinine [Mass/Vol] 1.13 mg/dL Normal 0.70-1.30 [facility] Comment on above: Performed By: #### TJ RAMÍREZ7 ####[facility] (DEFAULT)[address] [place] [address] GFR/1.73 sq M.predicted among non-blacks MDRD (S/P/Bld) [Vol rate/Area] 78 mL/min/{1.73_m2} Normal >=60 [facility] Comment on above: Result Comment: Repo rted eGFR is based on the CKD-EPI 2020 equation using creatinine, age, and sex. Performed By: #### TJ RAMÍREZ7 ####[facility] (DEFAULT)[address] [place] [address] Glucose [Mass/Vol] 109 mg/dL High 70-99 [facility] Comment on above: Performed By: #### TJ RAMÍREZ7 ####[facility] (DEFAULT)[address] [place] [address] Osmolality [Osmolality] 295 mosm/kg Normal 278-305 [facility] Comment on above: Performed By: #### TJ RAMÍREZ7 ####[facility] (DEFAULT)[address] [facility] [place] [address] Potassium [Moles/Vol] 4.3 mmol/L Normal 3.5-5.0 [facility] Comment on above: Performed By: #### TJ RAMÍREZ7 ####[facility] (DEFAULT)[address] [place] [address] Sodium [Moles/Vol] 140 mmol/L Normal 135-145 [facility] Comment on above: Performed By: #### TJ RAMÍREZ7 ####[facility] (DEFAULT)[address] [facility] [place] [address] Urea nitrogen [Mass/Vol] 16 mg/dL Normal 7-25 [facility] Comment on above: Performed By: #### TJ RAMÍREZ7 ####[facility] (DEFAULT)[address] [place] [address] Urea nitrogen/Creatinine [Mass ratio] 14 mg/mg Normal [facility] Comment on above: Performed By: #### TJ RAMÍREZ7 ####[facility] (DEFAULT)[address] [place] [address] Anion gap [Moles/Vol] 13 mmol/L 7 - 17 mmol/L [facility] Chloride [Moles/Vol] 111 mmol/L High 98 - 10 8 mmol/L [facility] CO2 [Moles/Vol] 20 mmol/L Low 21 - 31 mmol/L [facility] Creatinine [Mass/Vol] 1.13 mg/dL 0.70 - 1.30 mg/dL [facility] eGFR, CKD-EPI, Male 79 - PINF [facility] Glucose [Mass/Vol] 109 mg/dL High 70 - 99 mg/dL [facility] Interpretation and review of laboratory results Abnormal [facility] Osmolality Calc [Osmolality] 295 [facility] Potassium [Moles/Vol] 4.3 mmol/L 3.5 - 5.0 mmol/L [facility] Sodium [Moles/Vol] 140 mmol/L 135 - 145 mmol/L [facility] Urea nitrogen [Mass/Vol] 16 mg/dL 7 - 25 mg/dL [facility] Urea nitrogen/Creatinine [Mass ratio] 14 mg/mg [facility] GLUCOSE POCon 09-11-2023 Glucose [Mass/Vol] 108 mg/dL High 70 - 99 mg/dL [facility] Interpretation and review of laboratory results Abnormal [facility] POC Sample Type CAPBL [facility] Legionella sp identified Org specific cx Nom (Unsp spec)on 09-11-2023 Bacteria identified Cx Nom (Unsp spec) NO GROWTH DAY 7 OF 7 [facility] MAGNESIUMon 09-11-2023 Magnesium [Mass/Vol] 1.6 mg/dL Normal 1.6-2.6 [facility] Comment on above: Performed By: #### M MERLE, CHM7 ####[facility] (DEFAULT)[address] [place] [address] Interpretation and review of laboratory results Normal [facility] Magnesium [Mass/Vol] 1.6 mg/dL 1.6 - 2 .6 mg/dL [facility] No Panel Informationon 09-11 [facility] TACROLIMUS LEVEL, TROUGH (MT E DRUG LEVEL)on 09-11-2023 Interpretation and review of laboratory results Normal [facility] Tacrolimus (Bld) [Mass/Vol] 11.5 ng/mL [facility] Tacrolimus, Trough 11.5 ng/mL Normal Bone Susana ow Transplant: 4.0-12.0, Therapeutic: 5.0-15.0 [facility] Comment on above: Order Comment: Pleas e draw at specified interval PRIOR to dose. Do not hold dose to wait for level. Specimens batched twice per day, (M-F) and once per day weekendsMethod performed is a chemiluminescent microparticle immunoasssay on the [employer] i2000.The range is based on experience at [facility] and users should be aware that target concentrations vary widely depending on concomitant therapy, time post-transplant, and desired degree of immunosuppression. Performed By: #### T ACRO ####[facility] (DEFAULT)[address] [place] [address] CBC,PLATELETSon 09-10-2023 Hematocrit (Bld) [Volume fraction] 40.0 % Normal 39.6-48.8 [facility] Comment on above: Performed By: #### H EMOGC ####[facility] (DEFAULT)[address] [place] [address] Hemoglobin (Bld) [Mass/Vol] 12.7 g/dL Low 13.4-16.8 [facility] Comment on above: Performed By: #### H EMOGC ####[facility] (DEFAULT)[address] [place] [address] MCV (RBC) [Entitic vol] 86.0 fL Normal 79.0-94.5 [facility] Comment on above: Performed By: #### H EMOGC ####[facility] (DEFAULT)[address] [place] [address] Mean Cell Hgb 27.3 pg Normal 26.1-33.3 [facility] Comment on above: Performed By: #### H EMOGC ####[facility] (DEFAULT)[address] [place] [address] Mean Cell Hgb Conc 31.8 g/dL Low 31.9-36.5 [facility] Comment on above: Performed By: #### H EMOGC ####[facility] (DEFAULT)[address] [place] [address] Platelet mean volume (Bld) [Entitic vol] 9.5 fL Normal 8.7-12.3 [facility] Comment on above: Performed By: #### H EMOGC ####[facility] (DEFAULT)[address] [place] [address], [place] [address] Platelets (Bld) [#/Vol] 225 10*3/uL Normal 146-337 [facility] Comment on above: Performed By: #### H EMOGC ####[facility] (DEFAULT)[address] [place] [address] RBC (Bld) [#/Vol] 4.65 10*6/uL Normal 4.38-5.83 [facility] Comment on above: Performed By: #### H [facility] ####[facility] (DEFAULT)[address] [place] [address] RBC Distribution 13.9 % Normal 10.9-14.3 [facility] Comment on above: Performed By: #### H [facility] ####[facility] (DEFAULT)[address] [place] [address] WBC (Bld) [#/Vol] 6.52 10*3/uL Normal 3.73-10.10 [facility] Comment on above: Performed By: #### H [facility] ####[facility] (DEFAULT)[address] [place] [address] Erythrocyte distribution width (RBC) [Ratio] 13.9 % 10.9 - 14.3 % [facility] Hematocrit (Bld) [Volume fraction] 40.0 % 39.6 - 48.8 % [facility] Hemoglobin (Bld) [Mass/Vol] 12.7 g/dL Low 13.4 - 16.8 g/dL [facility] Interpretation and review of laboratory results Abnormal [facility] MCH (RBC) [Entitic mass] 27.3 pg 26.1 - 33.3 pg [facility] MCHC (RBC) [Mass/Vol] 31.8 g/dL Low 31.9 - 36.5 g/dL [facility] MCV (RBC) [Entitic vol] 86.0 fL 79.0 - 94.5 fL [facility] Platelet mean volume (Bld) [Entitic vol] 9.5 fL 8.7 - 12.3 fL [facility] Platelets (Bld) [#/Vol] 225 10*3/uL 146 - 337 K/uL [facility] RBC (Bld) [#/Vol] 4.65 10*6/uL [facility] WBC (Bld) [#/Vol] 6.52 10*3/uL 3.73 - 10. 10 K/uL [facility] CHEM 7 (LYTES,BUN,CREA,GLUC) on 09-10-2023 Anion gap [Moles/Vol] 13 mmol/L Normal 7-17 [facility] Comment on above: Performed By: #### Rod BLOOM CHM7, HFP ####[facility] (DEFAULT)[address] [place] [address] Chloride [Moles/Vol] 111 mmol/L High 98-108 [facility] Comment on above: Performed By: #### Rod BLOOM CHM7, HFP ####[facility] (DEFAULT)[address] [place] [address] CO2 [Moles/Vol] 20 mmol/L Low 21-31 [facility] Comment on above: Performed By: #### Rod BLOOM CHM7, HFP ####[facility] (DEFAULT)[address] [facility] [place] [address] Creatinine [Mass/Vol] 1.27 mg/dL Normal 0.70-1.30 [facility] Comment on above: Performed By: #### Rod BLOOM CHM7, HFP ####[facility] (DEFAULT)[address] [place] [address] GFR/1.73 sq M.predicted among non-blacks MDRD (S/P/Bld) [Vol rate/Area] 68 mL/min/{1.73_m2} Normal >=60 [facility] Comment on above: Result Comment: Repo rted eGFR is based on the CKD-EPI 2020 equation using creatinine, age, and sex. Performed By: #### Rod BLOOM CHM7, HFP ####[facility] (DEFAULT)[address] [place] [address] Glucose [Mass/Vol] 100 mg/dL High 70-99 [facility] Comment on above: Performed By: #### Rod BLOOM CHM7, HFP ####[facility] (DEFAULT)[address] [place] [address] Osmolality [Osmolality] 293 mosm/kg Normal 278-305 [facility] Comment on above: Performed By: #### NATHANIEL RAMÍREZ, HFP ####[facility] (DEFAULT)[address] [place] [address] Potassium [Moles/Vol] 4.4 mmol/L Normal 3.5-5.0 [facility] Comment on above: Performed By: #### NATHANIEL RAMÍREZ, HFP ####[facility] (DEFAULT)[address] [place] [address] Sodium [Moles/Vol] 140 mmol/L Normal 135-145 [facility] Comment on above: Performed By: #### NATHANIEL RAMÍREZ, HFP ####[facility] (DEFAULT)[address] [place] [address] Urea nitrogen [Mass/Vol] 12 mg/dL Normal 7-25 [facility] Comment on above: Performed By: #### NATHANIEL RAMÍREZ, HFP ####[facility] (DEFAULT)[address] [place] [address] Urea nitrogen/Creatinine [Mass ratio] 9 mg/mg Normal [facility] Comment on above: Performed By: #### NATHANIEL RAMÍREZ, HFP ####[facility] (DEFAULT)[address] [place] [address] Anion gap [Moles/Vol] 13 mmol/L 7 - 17 mmol/L [facility] Chloride [Moles/Vol] 111 mmol/L High 98 - 10 8 mmol/L [facility] CO2 [Moles/Vol] 20 mmol/L Low 21 - 31 mmol/L [facility] Creatinine [Mass/Vol] 1.27 mg/dL 0.70 - 1.30 mg/dL [facility] eGFR, CKD-EPI, Male 69 - PINF [facility] Glucose [Mass/Vol] 100 mg/dL High 70 - 99 mg/dL [facility] Osmolality Calc [Osmolality] 293 [facility] Potassium [Moles/Vol] 4.4 mmol/L 3.5 - 5.0 mmol/L [facility] Sodium [Moles/Vol] 140 mmol/L 135 - 145 mmol/L [facility] Urea nitrogen [Mass/Vol] 12 mg/dL 7 - 25 mg/dL [facility] Urea nitrogen/Creatinine [Mass ratio] 9 mg/mg [facility] HEPATIC FUNCTION PANELon Albumin [Mass/Vol] 3.3 g/dL Low 3.5-5.0 [facility] Comment on above: Performed By: #### NATHANIEL RAMÍREZ, HFP ####[facility] (DEFAULT)[address] [place] [address] ALP [Catalytic activity/Vol] 143 U/L High 32-126 [facility] Comment on above: Performed By: #### NATHANIEL RAMÍREZ, HFP ####[facility] (DEFAULT)[address] [place] [address] ALT [Catalytic activity/Vol] 28 U/L Normal 10-52 [facility] Comment on above: Performed By: #### NATHANIEL RAMÍREZ, HFP ####[facility] (DEFAULT)[address] [place] [address] AST [Catalytic activity/Vol] 29 U/L Normal 10-39 [facility] Comment on above: Performed By: #### NATHANIEL RAMÍREZ, HFP ####[facility] (DEFAULT)[address] [place] [address] Bilirubin [Mass/Vol] 0.9 mg/dL Normal <1.5 [facility] Comment on above: Performed By: #### NATHANIEL RAMÍREZ, HFP ####[facility] (DEFAULT)[address] [place] [address] Bilirubin.indirect [Mass/Vol] 0.2 mg/dL Normal <0.3 [facility] Comment on above: Performed By: #### M NATHANIEL BLOOM, HFP ####[facility] (DEFAULT)[address] [place] [address] Protein [Mass/Vol] 6.8 g/dL Normal 6.4-8.3 [facility] Comment on above: Performed By: #### M NATHANIEL BLOOM, HFP ####[facility] (DEFAULT)[address] [place] [address] Albumin [Mass/Vol] 3.3 g/dL Low 3.5 - 5.0 g/dL [facility] ALP [Catalytic activity/Vol] 143 U/L High 32 - 126 U/L [facility] ALT [Catalytic activity/Vol] 28 U/L 10 - 52 U/L [facility] AST [Catalytic activity/Vol] 29 U/L 10 - 39 U/L [facility] Bilirubin [Mass/Vol] 0.9 mg/dL NINF - 1.5 mg/dL [facility] Bilirubin.direct [Mass/Vol] 0.2 mg/dL NINF - 0.3 mg/dL [facility] Protein [Mass/Vol] 6.8 g/dL 6.4 - 8.3 g/dL [facility] MAGNESIUMon 09-10-2023 Magnesium [Mass/Vol] 1.9 mg/dL Normal 1.6-2.6 [facility] Comment on above: Performed By: #### M NATHANIEL BLOOM, HFP ####[facility] (DEFAULT)[address] [place] [address] Interpretation and review of laboratory results Normal [facility] Magnesium [Mass/Vol] 1.9 mg/dL 1.6 - 2 .6 mg/dL [facility] No Panel Informationon 09-10 Interpretation and review of laboratory results Abnormal [facility] TACROLIMUS LEVEL, TROUGH (MT E DRUG LEVEL)Ordered By: Jimy Castillo on 09-10-2023 Interpretation and review of laboratory results Normal [facility] Tacrolimus (Bld) [Mass/Vol] 11.8 ng/mL [facility] TACROLIMUS LEVEL, TROUGH (MT E DRUG LEVEL)on 09-10-2023 Tacrolimus, Trough 11.8 ng/mL Normal [facility] Susana ow Transplant: 4.0-12.0, Therapeutic: 5.0-15.0 [facility] Comment on above: Order Comment: Pleas e draw at specified interval PRIOR to dose. Do not hold dose to wait for level. Specimens batched twice per day, (M-F) and once per day weekendsMethod performed is a chemiluminescent microparticle immunoasssay on the [employer] Cathead Operator i2000.The range is based on experience at [facility] and users should be aware that target concentrations vary widely depending on concomitant therapy, time post-transplant, and desired degree of immunosuppression. Performed By: #### T ACRO ####[facility] (DEFAULT)[address] [place] [id number] CHEM 7 (LYTES,BUN,CREA,GLUC) on 09-09-2023 Anion gap [Moles/Vol] 14 mmol/L Normal 7-17 [facility] Comment on above: Performed By: #### JO ANN RAMÍREZ CHM7 ####[facility] (DEFAULT)[address] [place] [address] Chloride [Moles/Vol] 113 mmol/L High 98-108 [facility] Comment on above: Performed By: #### JO ANN RAMÍREZ CHM7 ####[facility] (DEFAULT)[address] [place] [address] CO2 [Moles/Vol] 18 mmol/L Low 21-31 [facility] Comment on above: Performed By: #### JO ANN RAMÍREZ CHM7 ####[facility] (DEFAULT)[address] [place] [address] Creatinine [Mass/Vol] 1.03 mg/dL Normal 0.70-1.30 [facility] Comment on above: Performed By: #### JO ANN RAMRÍEZ CHM7 ####[facility] (DEFAULT)[address] [place] [address] GFR/1.73 sq M.predicted among non-blacks MDRD (S/P/Bld) [Vol rate/Area] 87 mL/min/{1.73_m2} Normal >=60 [facility] Comment on above: Result Comment: Repo rted eGFR is based on the CKD-EPI 2020 equation using creatinine, age, and sex. Performed By: #### JO ANN RAMÍREZ CHM7 ####[facility] (DEFAULT)[address] [place] [address] Glucose [Mass/Vol] 106 mg/dL High 70-99 [facility] Comment on above: Performed By: #### JO ANN RAMÍREZ CHRod7 ####[facility] (DEFAULT)[address] [place] [address] Osmolality [Osmolality] 294 mosm/kg Normal 278-305 [facility] Comment on above: Performed By: #### JO ANN RAMÍREZ CHM7 ####[facility] (DEFAULT)[address] [place] [address] Potassium [Moles/Vol] 4.0 mmol/L Normal 3.5-5.0 [facility] Comment on above: Performed By: #### JO ANN RAMÍREZ CHM7 ####[facility] (DEFAULT)[address] [place] [address] Sodium [Moles/Vol] 141 mmol/L Normal 135-145 [facility] Comment on above: Performed By: #### JO ANN RAMÍREZ CHM7 ####[facility] (DEFAULT)[address] [place] [address] Urea nitrogen [Mass/Vol] 10 mg/dL Normal 7-25 [facility] Comment on above: Performed By: #### JO ANN RAMÍREZ CHM7 ####[facility] (DEFAULT)[address] [place] [address] Urea nitrogen/Creatinine [Mass ratio] 10 mg/mg Normal [facility] Comment on above: Performed By: #### M JO ANN BLOOM CHM7 ####[facility] (DEFAULT)[address] [place] [address] Anion gap [Moles/Vol] 14 mmol/L 7 - 17 mmol/L [facility] Chloride [Moles/Vol] 113 mmol/L High 98 - 10 8 mmol/L [facility] CO2 [Moles/Vol] 18 mmol/L Low 21 - 31 mmol/L [facility] Creatinine [Mass/Vol] 1.03 mg/dL 0.70 - 1.30 mg/dL [facility] eGFR, CKD-EPI, Male 87 - [facility] Glucose [Mass/Vol] 106 mg/dL High 70 - 99 mg/dL [facility] Interpretation and review of laboratory results Abnormal [facility] Osmolality Calc [Osmolality] 294 [facility] Potassium [Moles/Vol] 4.0 mmol/L 3.5 - 5.0 mmol/L [facility] Sodium [Moles/Vol] 141 mmol/L 135 - 145 mmol/L [facility] Urea nitrogen [Mass/Vol] 10 mg/dL 7 - 25 mg/dL [facility] Urea nitrogen/Creatinine [Mass ratio] 10 mg/mg [facility] MAGNESIUMon 09-09-2023 Magnesium [Mass/Vol] 1.6 mg/dL Normal 1.6-2.6 [facility] Comment on above: Performed By: #### M JO ANN BLOOM CHM7 ####[facility] (DEFAULT)[address] [place] [address] Magnesium [Mass/Vol] 1.6 mg/dL 1.6 - 2 .6 mg/dL [facility] No Panel Informationon 09-09 Interpretation and review of laboratory results [facility] PHOSPHATE, INORGANICon 09-09 Phosphorous 3.8 mg/dL Normal 2.2-4.6 [facility] Comment on above: Performed By: #### M MERLE, JO ANN, CHM7 ####[facility] (DEFAULT)[address] [place] [address] Phosphate [Mass/Vol] 3.8 mg/dL 2.2 - 4 .6 mg/dL [facility] TACROLIMUS LEVEL, TROUGH (MT E DRUG LEVEL)on 09-09-2023 Interpretation and review of laboratory results Normal [facility] Tacrolimus (Bld) [Mass/Vol] 9.2 ng/mL [facility] Tacrolimus, Trough 9.2 ng/mL Normal Bone Susana ow Transplant: 4.0-12.0, Therapeutic: 5.0-15.0 [facility] Comment on above: Order Comment: Pleas e draw at specified interval PRIOR to dose. Do not hold dose to wait for level. Specimens batched twice per day, (M-F) and once per day weekendsMethod performed is a chemiluminescent microparticle immunoasssay on the [employer] Cat[employer] Operator i2000.The range is based on experience at [facility] and users should be aware that target concentrations vary widely depending on concomitant therapy, time post-transplant, and desired degree of immunosuppression. Performed By: #### T ACRO ####[facility] (DEFAULT)[address] [place] [address] CBC,PLATELETSon 09-08-2023 Hematocrit (Bld) [Volume fraction] 36.1 % Low 39.6-48.8 [facility] Comment on above: Performed By: #### [facility] ####[facility] (DEFAULT)[address] [place] [address] Hemoglobin (Bld) [Mass/Vol] 11.6 g/dL Low 13.4-16.8 [facility] Comment on above: Performed By: #### H EMO ####[facility] (DEFAULT)[address] [place] [address] MCV (RBC) [Entitic vol] 85.1 fL Normal 79.0-94.5 [facility] Comment on above: Performed By: #### H EMOGC ####[facility] (DEFAULT)[address] [place] [address] Mean Cell Hgb 27.4 pg Normal 26.1-33.3 [facility] Comment on above: Performed By: #### H EMOGC ####[facility] (DEFAULT)[address] [place] [address] Mean Cell Hgb Conc 32.1 g/dL Normal 31.9-36.5 [facility] Comment on above: Performed By: #### H EMOGC ####[facility] (DEFAULT)[address] [place] [address] Platelet mean volume (Bld) [Entitic vol] 9.5 fL Normal 8.7-12.3 [facility] Comment on above: Performed By: #### H EMOGC ####[facility] (DEFAULT)[address] [facility] [place] [address] Platelets (Bld) [#/Vol] 182 10*3/uL Normal 146-337 [facility] Comment on above: Performed By: #### H EMOGC ####[facility] (DEFAULT)[address] [place] [address] RBC (Bld) [#/Vol] 4.24 10*6/uL Low 4.38-5.83 [facility] Comment on above: Performed By: #### H EMOGC ####[facility] (DEFAULT)[address] [facility] [place] [address] RBC Distribution 13.6 % Normal 10.9-14.3 [facility] Comment on above: Performed By: #### H EMOGC ####[facility] (DEFAULT)[address] [facility] [place] [address] WBC (Bld) [#/Vol] 4.59 10*3/uL Normal 3.73-10.10 [facility] Comment on above: Performed By: #### H [facility] ####[facility] (DEFAULT)[address] [place] [address] Erythrocyte distribution width (RBC) [Ratio] 13.6 % 10.9 - 14.3 % [facility] Hematocrit (Bld) [Volume fraction] 36.1 % Low 39.6 - 48.8 % [facility] Hemoglobin (Bld) [Mass/Vol] 11.6 g/dL Low 13.4 - 16.8 g/dL [facility] Interpretation and review of laboratory results Abnormal [facility] MCH (RBC) [Entitic mass] 27.4 pg 26.1 - 33.3 pg [facility] MCHC (RBC) [Mass/Vol] 32.1 g/dL 31.9 - 36.5 g/dL [facility] MCV (RBC) [Entitic vol] 85.1 fL 79.0 - 94.5 fL [facility] Platelet mean volume (Bld) [Entitic vol] 9.5 fL 8.7 - 12.3 fL [facility] Platelets (Bld) [#/Vol] 182 10*3/uL 146 - 337 K/uL [facility] RBC (Bld) [#/Vol] 4.24 10*6/uL Low [facility] WBC (Bld) [#/Vol] 4.59 10*3/uL 3.73 - 10. 10 K/uL [facility] CHEM 7 (LYTES,BUN,CREA,GLUC) on 09-08-2023 Anion gap [Moles/Vol] 12 mmol/L Normal 7-17 [facility] Comment on above: Performed By: #### M GO, IPB, HFP, CHM7 ####[facility] (DEFAULT)[address] [place] [address] Chloride [Moles/Vol] 113 mmol/L High 98-108 [facility] Comment on above: Performed By: #### M MERLE, IPB, HFP, CHM7 ####[facility] (DEFAULT)[address] [place] [address] CO2 [Moles/Vol] 21 mmol/L Normal 21-31 [facility] Comment on above: Performed By: #### M MERLE, IPB, HFP, CHM7 ####[facility] (DEFAULT)[address] [place] [address] Creatinine [Mass/Vol] 1.14 mg/dL Normal 0.70-1.30 [facility] Comment on above: Performed By: #### M MERLE, IPB, HFP, CHM7 ####[facility] (DEFAULT)[address] [facility] [place] [address] GFR/1.73 sq M.predicted among non-blacks MDRD (S/P/Bld) [Vol rate/Area] 77 mL/min/{1.73_m2} Normal >=60 [facility] Comment on above: Result Comment: Repo rted eGFR is based on the CKD-EPI 2020 equation using creatinine, age, and sex. Performed By: #### M MERLE, IPB, HFP, CHM7 ####[facility] (DEFAULT)[address] [place] [address] Glucose [Mass/Vol] 107 mg/dL High 70-99 [facility] Comment on above: Performed By: #### M MERLE, IPB, HFP, CHM7 ####[facility] (DEFAULT)[address] [place] [address] Osmolality [Osmolality] 296 mosm/kg Normal 278-305 [facility] Comment on above: Performed By: #### M MERLE, IPB, HFP, CHM7 ####[facility] (DEFAULT)[address] [place] [address] Potassium [Moles/Vol] 3.9 mmol/L Normal 3.5-5.0 [facility] Comment on above: Performed By: #### M MERLE, IPB, HFP, CHM7 ####[facility] (DEFAULT)[address] [place] [address] Sodium [Moles/Vol] 142 mmol/L Normal 135-145 [facility] Comment on above: Performed By: #### M MERLE, IPB, HFP, CHM7 ####[facility] (DEFAULT)[address] [facility] [place] [address] Urea nitrogen [Mass/Vol] 11 mg/dL Normal 7-25 [facility] Comment on above: Performed By: #### M MERLE, IPB, HFP, CHM7 ####[facility] (DEFAULT)[address] [place] [address] Urea nitrogen/Creatinine [Mass ratio] 10 mg/mg Normal [facility] Comment on above: Performed By: #### M MERLE, IPB, HFP, CHM7 ####[facility] (DEFAULT)[address] [place] [address] Anion gap [Moles/Vol] 12 mmol/L 7 - 17 mmol/L [facility] Chloride [Moles/Vol] 113 mmol/L High 98 - 10 8 mmol/L [facility] CO2 [Moles/Vol] 21 mmol/L 21 - 31 mmol/L [facility] Creatinine [Mass/Vol] 1.14 mg/dL 0.70 - 1.30 mg/dL [facility] eGFR, CKD-EPI, Male 77 - PINF [facility] Glucose [Mass/Vol] 107 mg/dL High 70 - 99 mg/dL [facility] Osmolality Calc [Osmolality] 296 [facility] Potassium [Moles/Vol] 3.9 mmol/L 3.5 - 5.0 mmol/L [facility] Sodium [Moles/Vol] 142 mmol/L 135 - 145 mmol/L [facility] Urea nitrogen [Mass/Vol] 11 mg/dL 7 - 25 mg/dL [facility] Urea nitrogen/Creatinine [Mass ratio] 10 mg/mg [facility] HEPATIC FUNCTION PANELon Albumin [Mass/Vol] 2.9 g/dL Low 3.5-5.0 [facility] Comment on above: Performed By: #### M GO, IPB, HFP, CHM7 ####[facility] (DEFAULT)[address] [place] [address] ALP [Catalytic activity/Vol] 133 U/L High 32-126 [facility] Comment on above: Performed By: #### M GO, IPB, HFP, CHM7 ####[facility] (DEFAULT)[address] [place] [address] ALT [Catalytic activity/Vol] 23 U/L Normal 10-52 [facility] Comment on above: Performed By: #### M GO, IPB, HFP, CHM7 ####[facility] (DEFAULT)[address] [place] [address] AST [Catalytic activity/Vol] 23 U/L Normal 10-39 [facility] Comment on above: Performed By: #### M GO, IPB, HFP, CHM7 ####[facility] (DEFAULT)[address] [place] [address] Bilirubin [Mass/Vol] 0.8 mg/dL Normal <1.5 [facility] Comment on above: Performed By: #### M GO, IPB, HFP, CHM7 ####[facility] (DEFAULT)[address] [place] [address] Bilirubin.indirect [Mass/Vol] 0.2 mg/dL Normal <0.3 [facility] Comment on above: Performed By: #### M GO, IPB, HFP, CHM7 ####[facility] (DEFAULT)[address] [place] [address] Protein [Mass/Vol] 5.9 g/dL Low 6.4-8.3 [facility] Comment on above: Performed By: #### M JO ANN BLOOM, TAVO, CHM7 ####[facility] (DEFAULT)[address] [place] [address] Albumin [Mass/Vol] 2.9 g/dL Low 3.5 - 5.0 g/dL [facility] ALP [Catalytic activity/Vol] 133 U/L High 32 - 126 U/L [facility] ALT [Catalytic activity/Vol] 23 U/L 10 - 52 U/L [facility] AST [Catalytic activity/Vol] 23 U/L 10 - 39 U/L [facility] Bilirubin [Mass/Vol] 0.8 mg/dL NINF - 1.5 mg/dL [facility] Bilirubin.direct [Mass/Vol] 0.2 mg/dL NINF - 0.3 mg/dL [facility] Protein [Mass/Vol] 5.9 g/dL Low 6.4 - 8.3 g/dL [facility] MAGNESIUMon 09-08-2023 Magnesium [Mass/Vol] 1.8 mg/dL Normal 1.6-2.6 [facility] Comment on above: Performed By: #### M JO ANN BLOOM, TAVO, CHM7 ####[facility] (DEFAULT)[address] [place] [address] Interpretation and review of laboratory results Normal [facility] Magnesium [Mass/Vol] 1.8 mg/dL 1.6 - 2 .6 mg/dL [facility] No Panel Informationon 09-08 Interpretation and review of laboratory results Abnormal [facility] PHOSPHATE, INORGANICon 09-08 Interpretation and review of laboratory results Normal [facility] Phosphate [Mass/Vol] 4.1 mg/dL 2.2 - 4 .6 mg/dL [facility] Phosphorous 4.1 mg/dL Normal 2.2-4.6 [facility] Comment on above: Performed By: #### M GO, IPB, HFP, CHM7 ####[facility] (DEFAULT)[address] [place] [address] TACROLIMUS LEVEL, TROUGH (MT E DRUG LEVEL)on 09-08-2023 Interpretation and review of laboratory results Normal [facility] Tacrolimus (Bld) [Mass/Vol] 8.5 ng/mL [facility] Tacrolimus, Trough 8.5 ng/mL Normal Bone Susana ow Transplant: 4.0-12.0, Therapeutic: 5.0-15.0 [facility] Comment on above: Order Comment: Pleas e draw at specified interval PRIOR to dose. Do not hold dose to wait for level. Specimens batched twice per day, (M-F) and once per day weekendsMethod performed is a chemiluminescent microparticle immunoasssay on the [employer] i2000.The range is based on experience at [facility] and users should be aware that target concentrations vary widely depending on concomitant therapy, time post-transplant, and desired degree of immunosuppression. Performed By: #### T ACRO ####[facility] (DEFAULT)[address] [place] [address] CBC,PLATELETSon 09-07-2023 Hematocrit (Bld) [Volume fraction] 37.1 % Low 39.6-48.8 [facility] Comment on above: Performed By: #### [facility] ####[facility] (DEFAULT)[address] [place] [address] Hemoglobin (Bld) [Mass/Vol] 11.9 g/dL Low 13.4-16.8 [facility] Comment on above: Performed By: #### H EMO ####[facility] (DEFAULT)[address] [place] [address] MCV (RBC) [Entitic vol] 86.5 fL Normal 79.0-94.5 [facility] Comment on above: Performed By: #### H EMO ####[facility] (DEFAULT)[address] [place] [address] Mean Cell Hgb 27.7 pg Normal 26.1-33.3 [facility] Comment on above: Performed By: #### H EMOGC ####[facility] (DEFAULT)[address] [place] [address] Mean Cell Hgb Conc 32.1 g/dL Normal 31.9-36.5 [facility] Comment on above: Performed By: #### H EMOGC ####[facility] (DEFAULT)[address] [facility] [place] [address] Platelet mean volume (Bld) [Entitic vol] 9.6 fL Normal 8.7-12.3 [facility] Comment on above: Performed By: #### H EMOGC ####[facility] (DEFAULT)[address] [place] [address] Platelets (Bld) [#/Vol] 176 10*3/uL Normal 146-337 [facility] Comment on above: Performed By: #### H EMOGC ####[facility] (DEFAULT)[address] [place] [address] RBC (Bld) [#/Vol] 4.29 10*6/uL Low 4.38-5.83 [facility] Comment on above: Performed By: #### H EMOGC ####[facility] (DEFAULT)[address] [place] [address] RBC Distribution 13.5 % Normal 10.9-14.3 [facility] Comment on above: Performed By: #### H EMOGC ####[facility] (DEFAULT)[address] [place] [address] WBC (Bld) [#/Vol] 4.10 10*3/uL Normal 3.73-10.10 [facility] Comment on above: Performed By: #### H EMOGC ####[facility] (DEFAULT)[address] [place] [address] Erythrocyte distribution width (RBC) [Ratio] 13.5 % 10.9 - 14.3 % [facility] Hematocrit (Bld) [Volume fraction] 37.1 % Low 39.6 - 48.8 % [facility] Hemoglobin (Bld) [Mass/Vol] 11.9 g/dL Low 13.4 - 16.8 g/dL [facility] Interpretation and review of laboratory results Abnormal [facility] MCH (RBC) [Entitic mass] 27.7 pg 26.1 - 33.3 pg [facility] MCHC (RBC) [Mass/Vol] 32.1 g/dL 31.9 - 36.5 g/dL [facility] MCV (RBC) [Entitic vol] 86.5 fL 79.0 - 94.5 fL [facility] Platelet mean volume (Bld) [Entitic vol] 9.6 fL 8.7 - 12.3 fL [facility] Platelets (Bld) [#/Vol] 176 10*3/uL 146 - 337 K/uL [facility] RBC (Bld) [#/Vol] 4.29 10*6/uL Low [facility] WBC (Bld) [#/Vol] 4.10 10*3/uL 3.73 - 10. 10 K/uL [facility] CHEM 7 (LYTES,BUN,CREA,GLUC) on 09-07-2023 Anion gap [Moles/Vol] 13 mmol/L Normal 7-17 [facility] Comment on above: Performed By: #### C HM7, IPB, MGO, HFP ####[facility] (DEFAULT)[address] [place] [address] Chloride [Moles/Vol] 113 mmol/L High 98-108 [facility] Comment on above: Performed By: #### C HM7, IPB, MGO, HFP ####[facility] (DEFAULT)[address] [place] [address] CO2 [Moles/Vol] 19 mmol/L Low 21-31 [facility] Comment on above: Performed By: #### C HM7, IPB, MGO, HFP ####[facility] (DEFAULT)[address] [place] [address] Creatinine [Mass/Vol] 1.22 mg/dL Normal 0.70-1.30 [facility] Comment on above: Performed By: #### C HM7, IPB, MGO, HFP ####U [facility] (DEFAULT)[address] [place] [address] GFR/1.73 sq M.predicted among non-blacks MDRD (S/P/Bld) [Vol rate/Area] 71 mL/min/{1.73_m2} Normal >=60 [facility] Comment on above: Result Comment: Repo rted eGFR is based on the CKD-EPI 2020 equation using creatinine, age, and sex. Performed By: #### C HM7, IPB, MGO, HFP ####[facility] (DEFAULT)[address] [place] [address] Glucose [Mass/Vol] 107 mg/dL High 70-99 [facility] Comment on above: Performed By: #### C HM7, IPB, MGO, HFP ####[facility] (DEFAULT)[address] [facility] [place] [address] Osmolality [Osmolality] 295 mosm/kg Normal 278-305 [facility] Comment on above: Performed By: #### C HM7, IPB, MGO, HFP ####[facility] (DEFAULT)[address] [place] [address] Potassium [Moles/Vol] 3.9 mmol/L Normal 3.5-5.0 [facility] Comment on above: Performed By: #### C HM7, IPB, MGO, HFP ####[facility] (DEFAULT)[address] [place] [address] Sodium [Moles/Vol] 141 mmol/L Normal 135-145 [facility] Comment on above: Performed By: #### C HM7, IPB, MGO, HFP ####[facility] (DEFAULT)[address] [place] [address] Urea nitrogen [Mass/Vol] 13 mg/dL Normal 7-25 [facility] Comment on above: Performed By: #### C HM7, IPB, MGO, HFP ####[facility] (DEFAULT)[address] [place] [address] Urea nitrogen/Creatinine [Mass ratio] 11 mg/mg Normal [facility] Comment on above: Performed By: #### C HM7, IPB, MGO, HFP ####[facility] (DEFAULT)[address] [place] [address] Anion gap [Moles/Vol] 13 mmol/L 7 - 17 mmol/L [facility] Chloride [Moles/Vol] 113 mmol/L High 98 - 10 8 mmol/L [facility] CO2 [Moles/Vol] 19 mmol/L Low 21 - 31 mmol/L [facility] Creatinine [Mass/Vol] 1.22 mg/dL 0.70 - 1.30 mg/dL [facility] eGFR, CKD-EPI, Male 72 - PINF [facility] Glucose [Mass/Vol] 107 mg/dL High 70 - 99 mg/dL [facility] Osmolality Calc [Osmolality] 295 [facility] Potassium [Moles/Vol] 3.9 mmol/L 3.5 - 5.0 mmol/L [facility] Sodium [Moles/Vol] 141 mmol/L 135 - 145 mmol/L [facility] Urea nitrogen [Mass/Vol] 13 mg/dL 7 - 25 mg/dL [facility] Urea nitrogen/Creatinine [Mass ratio] 11 mg/mg [facility] HEPATIC FUNCTION PANELon Albumin [Mass/Vol] 2.9 g/dL Low 3.5-5.0 [facility] Comment on above: Performed By: #### C HM7, IPB, MGO, HFP ####[facility] (DEFAULT)[address] [place] [address] ALP [Catalytic activity/Vol] 111 U/L Normal 32-126 [facility] Comment on above: Performed By: #### C HM7, IPB, MGO, HFP ####[facility] (DEFAULT)[address] [place] [address] ALT [Catalytic activity/Vol] 18 U/L Normal 10-52 [facility] Comment on above: Performed By: #### C HM7, IPB, MGO, HFP ####[facility] (DEFAULT)[address] [place] [address] AST [Catalytic activity/Vol] 23 U/L Normal 10-39 [facility] Comment on above: Performed By: #### C HM7, IPB, MGO, HFP ####[facility] (DEFAULT)[address] [place] [address] Bilirubin [Mass/Vol] 0.8 mg/dL Normal <1.5 [facility] Comment on above: Performed By: #### C HM7, IPB, MGO, HFP ####[facility] (DEFAULT)[address] [place] [address] Bilirubin.indirect [Mass/Vol] 0.3 mg/dL High <0.3 [facility] Comment on above: Performed By: #### C HM7, IPB, MGO, HFP ####[facility] (DEFAULT)[address] [place] [address] Protein [Mass/Vol] 6.0 g/dL Low 6.4-8.3 [facility] Comment on above: Performed By: #### C HM7, IPB, MGO, HFP ####[facility] (DEFAULT)[address] [place] [address] Albumin [Mass/Vol] 2.9 g/dL Low 3.5 - 5.0 g/dL [facility] ALP [Catalytic activity/Vol] 111 U/L 32 - 126 U/L [facility] ALT [Catalytic activity/Vol] 18 U/L 10 - 52 U/L [facility] AST [Catalytic activity/Vol] 23 U/L 10 - 39 U/L [facility] Bilirubin [Mass/Vol] 0.8 mg/dL NINF - 1.5 mg/dL [facility] Bilirubin.direct [Mass/Vol] 0.3 mg/dL High NINF - 0.3 mg/dL [facility] Protein [Mass/Vol] 6.0 g/dL Low 6.4 - 8.3 g/dL [facility] MAGNESIUMon 09-07-2023 Magnesium [Mass/Vol] 1.7 mg/dL Normal 1.6-2.6 [facility] Comment on above: Performed By: #### C HM7, IPB, MGO, HFP ####[facility] (DEFAULT)[address] [place] [address] Interpretation and review of laboratory results Normal [facility] Magnesium [Mass/Vol] 1.7 mg/dL 1.6 - 2 .6 mg/dL [facility] No Panel Informationon 09-07 Interpretation and review of laboratory results Abnormal [facility] PHOSPHATE, INORGANICon 09-07 Phosphorous 4.4 mg/dL Normal 2.2-4.6 [facility] Comment on above: Performed By: #### C HM7, IPB, MGO, HFP ####[facility] (DEFAULT)[address] [place] [address] Interpretation and review of laboratory results Normal [facility] Phosphate [Mass/Vol] 4.4 mg/dL 2.2 - 4 .6 mg/dL [facility] TACROLIMUS LEVEL, TROUGH (MT E DRUG LEVEL)Ordered By: Elizabeth Maldonado on 09-07-2023 Interpretation and review of laboratory results Normal [facility] Tacrolimus (Bld) [Mass/Vol] 7.8 ng/mL [facility] TACROLIMUS LEVEL, TROUGH (MT E DRUG LEVEL)on 09-07-2023 Tacrolimus, Trough 7.8 ng/mL Normal Bone Susana ow Transplant: 4.0-12.0, Therapeutic: 5.0-15.0 [facility] Comment on above: Order Comment: Pleas e draw at specified interval PRIOR to dose. Do not hold dose to wait for level. Specimens batched twice per day, (M-) and once per day weekendsMethod performed is a chemiluminescent microparticle immunoasssay on the [employer] Cathead Operator i2000.The range is based on experience at [facility] and users should be aware that target concentrations vary widely depending on concomitant therapy, time post-transplant, and desired degree of immunosuppression. Performed By: #### T ACRO ####[facility] (DEFAULT)[address] [place] [address] CBC,PLATELETSon 09-06-2023 Hematocrit (Bld) [Volume fraction] 38.4 % Low 39.6-48.8 [facility] Comment on above: Performed By: #### H [facility] ####[facility] (DEFAULT)[address] [place] [address] Hemoglobin (Bld) [Mass/Vol] 11.9 g/dL Low 13.4-16.8 [facility] Comment on above: Performed By: #### H [facility] ####[facility] (DEFAULT)[address] [place] [address] MCV (RBC) [Entitic vol] 85.9 fL Normal 79.0-94.5 [facility] Comment on above: Performed By: #### H [facility] ####[facility] (DEFAULT)[address] [place] [address] Mean Cell Hgb 26.6 pg Normal 26.1-33.3 [facility] Comment on above: Performed By: #### H EMOGC ####[facility] (DEFAULT)[address] [facility] [place] [address] Mean Cell Hgb Conc 31.0 g/dL Low 31.9-36.5 [facility] Comment on above: Performed By: #### H EMOGC ####[facility] (DEFAULT)[address] [place] [address] Platelet mean volume (Bld) [Entitic vol] 9.7 fL Normal 8.7-12.3 [facility] Comment on above: Performed By: #### H EMOGC ####[facility] (DEFAULT)[address] [place] [address] Platelets (Bld) [#/Vol] 181 10*3/uL Normal 146-337 [facility] Comment on above: Performed By: #### H EMOGC ####[facility] (DEFAULT)[address] [facility] [place] [address] RBC (Bld) [#/Vol] 4.47 10*6/uL Normal 4.38-5.83 [facility] Comment on above: Performed By: #### H EMOGC ####[facility] (DEFAULT)[address] [place] [address] RBC Distribution 13.4 % Normal 10.9-14.3 [facility] Comment on above: Performed By: #### H EMOGC ####[facility] (DEFAULT)[address] [place] [address] WBC (Bld) [#/Vol] 4.41 10*3/uL Normal 3.73-10.10 [facility] Comment on above: Performed By: #### H EMOGC ####[facility] (DEFAULT)[address] [place] [address] Erythrocyte distribution width (RBC) [Ratio] 13.4 % 10.9 - 14.3 % [facility] Hematocrit (Bld) [Volume fraction] 38.4 % Low 39.6 - 48.8 % [facility] Hemoglobin (Bld) [Mass/Vol] 11.9 g/dL Low 13.4 - 16.8 g/dL [facility] Interpretation and review of laboratory results Abnormal [facility] MCH (RBC) [Entitic mass] 26.6 pg 26.1 - 33.3 pg [facility] MCHC (RBC) [Mass/Vol] 31.0 g/dL Low 31.9 - 36.5 g/dL [facility] MCV (RBC) [Entitic vol] 85.9 fL 79.0 - 94.5 fL [facility] Platelet mean volume (Bld) [Entitic vol] 9.7 fL 8.7 - 12.3 fL [facility] Platelets (Bld) [#/Vol] 181 10*3/uL 146 - 337 K/uL [facility] RBC (Bld) [#/Vol] 4.47 10*6/uL [facility] WBC (Bld) [#/Vol] 4.41 10*3/uL 3.73 - 10. 10 K/uL [facility] CHEM 7 (LYTES,BUN,CREA,GLUC) on 09-06-2023 Anion gap [Moles/Vol] 14 mmol/L 7 - 17 mmol/L [facility] Chloride [Moles/Vol] 109 mmol/L High 98 - 10 8 mmol/L [facility] CO2 [Moles/Vol] 19 mmol/L Low 21 - 31 mmol/L [facility] Creatinine [Mass/Vol] 1.26 mg/dL 0.70 - 1.30 mg/dL [facility] eGFR, CKD-EPI, Male 70 - PINF [facility] Glucose [Mass/Vol] 114 mg/dL High 70 - 99 mg/dL [facility] Osmolality Calc [Osmolality] 291 [facility] Potassium [Moles/Vol] 4.1 mmol/L 3.5 - 5.0 mmol/L [facility] Sodium [Moles/Vol] 138 mmol/L 135 - 145 mmol/L [facility] Urea nitrogen [Mass/Vol] 16 mg/dL 7 - 25 mg/dL [facility] Urea nitrogen/Creatinine [Mass ratio] 13 mg/mg [facility] Anion gap [Moles/Vol] 14 mmol/L Normal 7-17 [facility] Comment on above: Performed By: #### NATHANIEL RAMÍREZ, HFP ####[facility] (DEFAULT)[address] [facility] [place] [address] Chloride [Moles/Vol] 109 mmol/L High 98-108 [facility] Comment on above: Performed By: #### NATHANIEL RAMÍREZ, HFP ####[facility] (DEFAULT)[address] [facility] [place] [address] CO2 [Moles/Vol] 19 mmol/L Low 21-31 [facility] Comment on above: Performed By: #### NATHANIEL RAMÍREZ, HFP ####[facility] (DEFAULT)[address] [place] [address] Creatinine [Mass/Vol] 1.26 mg/dL Normal 0.70-1.30 [facility] Comment on above: Performed By: #### NATHANIEL RAMÍREZ, HFP ####[facility] (DEFAULT)[address] [place] [address] GFR/1.73 sq M.predicted among non-blacks MDRD (S/P/Bld) [Vol rate/Area] 69 mL/min/{1.73_m2} Normal >=60 [facility] Comment on above: Result Comment: Repo rted eGFR is based on the CKD-EPI 2020 equation using creatinine, age, and sex. Performed By: #### NATHANIEL RAMÍREZ, HFP ####[facility] (DEFAULT)[address] [place] [address] Glucose [Mass/Vol] 114 mg/dL High 70-99 [facility] Comment on above: Performed By: #### NATHANIEL RAMÍREZ, HFP ####[facility] (DEFAULT)[address] [place] [address] Osmolality [Osmolality] 291 mosm/kg Normal 278-305 [facility] Comment on above: Performed By: #### NATHANIEL RAMÍREZ, HFP ####[facility] (DEFAULT)[address] [place] [address] Potassium [Moles/Vol] 4.1 mmol/L Normal 3.5-5.0 [facility] Comment on above: Performed By: #### NATHANIEL RAMÍREZ, HFP ####[facility] (DEFAULT)[address] [place] [address] Sodium [Moles/Vol] 138 mmol/L Normal 135-145 [facility] Comment on above: Performed By: #### NATHANIEL RAMÍREZ, HFP ####[facility] (DEFAULT)[address] [place] [address] Urea nitrogen [Mass/Vol] 16 mg/dL Normal 7-25 [facility] Comment on above: Performed By: #### NATHANIEL RAMÍREZ, HFP ####[facility] (DEFAULT)[address] [place] [address] Urea nitrogen/Creatinine [Mass ratio] 13 mg/mg Normal [facility] Comment on above: Performed By: #### NATHANIEL RAMÍREZ, HFP ####[facility] (DEFAULT)[address] [place] [address] HEPATIC FUNCTION PANELon Albumin [Mass/Vol] 3.0 g/dL Low 3.5 - 5.0 g/dL [facility] ALP [Catalytic activity/Vol] 115 U/L 32 - 126 U/L [facility] ALT [Catalytic activity/Vol] 25 U/L 10 - 52 U/L [facility] AST [Catalytic activity/Vol] 31 U/L 10 - 39 U/L [facility] Bilirubin [Mass/Vol] 1.0 mg/dL NINF - 1.5 mg/dL [facility] Bilirubin.direct [Mass/Vol] 0.3 mg/dL High NINF - 0.3 mg/dL [facility] Protein [Mass/Vol] 6.3 g/dL Low 6.4 - 8.3 g/dL [facility] Albumin [Mass/Vol] 3.0 g/dL Low 3.5-5.0 [facility] Comment on above: Performed By: #### M MERLE CHM7, HFP ####[facility] (DEFAULT)[address] [place] [address] ALP [Catalytic activity/Vol] 115 U/L Normal 32-126 [facility] Comment on above: Performed By: #### M MERLE CHM7, HFP ####[facility] (DEFAULT)[address] [place] [address] ALT [Catalytic activity/Vol] 25 U/L Normal 10-52 [facility] Comment on above: Performed By: #### M MERLE CHM7, HFP ####[facility] (DEFAULT)[address] [place] [address] AST [Catalytic activity/Vol] 31 U/L Normal 10-39 [facility] Comment on above: Performed By: #### M MERLE CHM7, HFP ####[facility] (DEFAULT)[address] [place] [address] Bilirubin [Mass/Vol] 1.0 mg/dL Normal <1.5 [facility] Comment on above: Performed By: #### M MERLE CHM7, HFP ####[facility] (DEFAULT)[address] [place] [address] Bilirubin.indirect [Mass/Vol] 0.3 mg/dL High <0.3 [facility] Comment on above: Performed By: #### M MERLE CHM7, HFP ####[facility] (DEFAULT)[address] [place] [address] Protein [Mass/Vol] 6.3 g/dL Low 6.4-8.3 [facility] Comment on above: Performed By: #### M TJ BLOOM7, HFP ####[facility] (DEFAULT)[address] [place] [address] MAGNESIUMon 09-06-2023 Interpretation and review of laboratory results Normal [facility] Magnesium [Mass/Vol] 2.0 mg/dL 1.6 - 2 .6 mg/dL [facility] Magnesium [Mass/Vol] 2.0 mg/dL Normal 1.6-2.6 [facility] Comment on above: Performed By: #### TJ RAMÍREZ7, HFP ####[facility] (DEFAULT)[address] [place] [address] No Panel Informationon 09-06 Interpretation and review of laboratory results Abnormal [facility] TACROLIMUS LEVEL, TROUGH (MT E DRUG LEVEL)on 09-06-2023 Interpretation and review of laboratory results Normal [facility] Tacrolimus (Bld) [Mass/Vol] 6.7 ng/mL [facility] Tacrolimus, Trough 6.7 ng/mL Normal Bone Susana ow Transplant: 4.0-12.0, Therapeutic: 5.0-15.0 [facility] Comment on above: Order Comment: Pleas e draw at specified interval PRIOR to dose. Do not hold dose to wait for level. Specimens batched twice per day, (M-F) and once per day weekendsMethod performed is a chemiluminescent microparticle immunoasssay on the [employer] Cat[employer] Operator i2000.The range is based on experience at [facility] and users should be aware that target concentrations vary widely depending on concomitant therapy, time post-transplant, and desired degree of immunosuppression. Performed By: #### T ACRO ####[facility] (DEFAULT)[address] [place] [address] CBC,PLATELETSon 09-05-2023 Hematocrit (Bld) [Volume fraction] 35.6 % Low 39.6-48.8 [facility] Comment on above: Performed By: #### H EMOGC ####[facility] (DEFAULT)[address] [place] [address] Hemoglobin (Bld) [Mass/Vol] 11.4 g/dL Low 13.4-16.8 [facility] Comment on above: Performed By: #### H EMOGC ####[facility] (DEFAULT)[address] [place] [address] MCV (RBC) [Entitic vol] 86.0 fL Normal 79.0-94.5 [facility] Comment on above: Performed By: #### H EMOGC ####[facility] (DEFAULT)[address] [facility] [place] [address] Mean Cell Hgb 27.5 pg Normal 26.1-33.3 [facility] Comment on above: Performed By: #### H EMOGC ####[facility] (DEFAULT)[address] [place] [address] Mean Cell Hgb Conc 32.0 g/dL Normal 31.9-36.5 [facility] Comment on above: Performed By: #### H EMOGC ####[facility] (DEFAULT)[address] [place] [address] Platelet mean volume (Bld) [Entitic vol] 10.0 fL Normal 8.7-12.3 [facility] Comment on above: Performed By: #### H EMOGC ####[facility] (DEFAULT)[address] [place] [address] Platelets (Bld) [#/Vol] 170 10*3/uL Normal 146-337 [facility] Comment on above: Performed By: #### H EMOGC ####[facility] (DEFAULT)[address] [place] [address] RBC (Bld) [#/Vol] 4.14 10*6/uL Low 4.38-5.83 [facility] Comment on above: Performed By: #### H [facility] ####[facility] (DEFAULT)[address] [facility] [place] [address] RBC Distribution 13.5 % Normal 10.9-14.3 [facility] Comment on above: Performed By: #### H [facility] ####[facility] (DEFAULT)[address] [place] [address] WBC (Bld) [#/Vol] 4.24 10*3/uL Normal 3.73-10.10 [facility] Comment on above: Performed By: #### H [facility] ####[facility] (DEFAULT)[address] [place] [address] Erythrocyte distribution width (RBC) [Ratio] 13.5 % 10.9 - 14.3 % [facility] Hematocrit (Bld) [Volume fraction] 35.6 % Low 39.6 - 48.8 % [facility] Hemoglobin (Bld) [Mass/Vol] 11.4 g/dL Low 13.4 - 16.8 g/dL [facility] Interpretation and review of laboratory results Abnormal [facility] MCH (RBC) [Entitic mass] 27.5 pg 26.1 - 33.3 pg [facility] MCHC (RBC) [Mass/Vol] 32.0 g/dL 31.9 - 36.5 g/dL [facility] MCV (RBC) [Entitic vol] 86.0 fL 79.0 - 94.5 fL [facility] Platelet mean volume (Bld) [Entitic vol] 10.0 fL 8.7 - 12.3 fL [facility] Platelets (Bld) [#/Vol] 170 10*3/uL 146 - 337 K/uL [facility] RBC (Bld) [#/Vol] 4.14 10*6/uL Low [facility] WBC (Bld) [#/Vol] 4.24 10*3/uL 3.73 - 10. 10 K/uL [facility] CHEM 7 (LYTES,BUN,CREA,GLUC) on 09-05-2023 Anion gap [Moles/Vol] 12 mmol/L Normal 7-17 [facility] Comment on above: Performed By: #### H FP, CHM7, MGO ####[facility] (DEFAULT)[address] [facility] [place] [address] Chloride [Moles/Vol] 107 mmol/L Normal 98-108 [facility] Comment on above: Performed By: #### H FP, CHM7, MGO ####[facility] (DEFAULT)[address] [place] [address] CO2 [Moles/Vol] 20 mmol/L Low 21-31 [facility] Comment on above: Performed By: #### H FP, CHM7, MGO ####[facility] (DEFAULT)[address] [place] [address] Creatinine [Mass/Vol] 1.43 mg/dL High 0.70-1.30 [facility] Comment on above: Performed By: #### H FP, CHM7, MGO ####[facility] (DEFAULT)[address] [place] [address] GFR/1.73 sq M.predicted among non-blacks MDRD (S/P/Bld) [Vol rate/Area] 59 mL/min/{1.73_m2} Low >=60 [facility] Comment on above: Result Comment: Repo rted eGFR is based on the CKD-EPI 2020 equation using creatinine, age, and sex. Performed By: #### H FP, CHM7, MGO ####[facility] (DEFAULT)[address] [place] [address] Glucose [Mass/Vol] 111 mg/dL High 70-99 [facility] Comment on above: Performed By: #### H FP, CHM7, MGO ####[facility] (DEFAULT)[address] [place] [address] Osmolality [Osmolality] 286 mosm/kg Normal 278-305 [facility] Comment on above: Performed By: #### H ANTWAN, CHM7, MGO ####[facility] (DEFAULT)[address] [place] [address] Potassium [Moles/Vol] 4.2 mmol/L Normal 3.5-5.0 [facility] Comment on above: Performed By: #### H ANTWAN, CHM7, MGO ####[facility] (DEFAULT)[address] [place] [address] Sodium [Moles/Vol] 135 mmol/L Normal 135-145 [facility] Comment on above: Performed By: #### Lydia MONCADA CHM7, MGO ####[facility] (DEFAULT)[address] [place] [address] Urea nitrogen [Mass/Vol] 18 mg/dL Normal 7-25 [facility] Comment on above: Performed By: #### H ANTWAN, CHM7, MGO ####[facility] (DEFAULT)[address] [place] [address] Urea nitrogen/Creatinine [Mass ratio] 13 mg/mg Normal [facility] Comment on above: Performed By: #### Lydia MONCADA CHM7, MGO ####[facility] (DEFAULT)[address] [place] [address] Anion gap [Moles/Vol] 12 mmol/L 7 - 17 mmol/L [facility] Chloride [Moles/Vol] 107 mmol/L 98 - 10 8 mmol/L [facility] CO2 [Moles/Vol] 20 mmol/L Low 21 - 31 mmol/L [facility] Creatinine [Mass/Vol] 1.43 mg/dL High 0.70 - 1.30 mg/dL [facility] eGFR, CKD-EPI, Male 59 Low - PINF [facility] Glucose [Mass/Vol] 111 mg/dL High 70 - 99 mg/dL [facility] Osmolality Calc [Osmolality] 286 [facility] Potassium [Moles/Vol] 4.2 mmol/L 3.5 - 5.0 mmol/L [facility] Sodium [Moles/Vol] 135 mmol/L 135 - 145 mmol/L [facility] Urea nitrogen [Mass/Vol] 18 mg/dL 7 - 25 mg/dL [facility] Urea nitrogen/Creatinine [Mass ratio] 13 mg/mg [facility] CONTINUOUS CARDIAC MONITORIN G STRIPon 09-05-2023 [facility] HEPATIC FUNCTION PANELon Albumin [Mass/Vol] 2.8 g/dL Low 3.5-5.0 [facility] Comment on above: Performed By: #### H NATHANIEL MONCADA, MGO ####[facility] (DEFAULT)[address] [place] [address] ALP [Catalytic activity/Vol] 103 U/L Normal 32-126 [facility] Comment on above: Performed By: #### H NATHANIEL MONCADA, MGO ####[facility] (DEFAULT)[address] [facility] [place] [address] ALT [Catalytic activity/Vol] 26 U/L Normal 10-52 [facility] Comment on above: Performed By: #### H NATHANIEL MONCADA, MGO ####[facility] (DEFAULT)[address] [place] [address] AST [Catalytic activity/Vol] 38 U/L Normal 10-39 [facility] Comment on above: Performed By: #### H ANTWAN, CHM7, MGO ####[facility] (DEFAULT)[address] [place] [address] Bilirubin [Mass/Vol] 0.9 mg/dL Normal <1.5 [facility] Comment on above: Performed By: #### H FP, CHM7, MGO ####[facility] (DEFAULT)[address] [place] [address] Bilirubin.indirect [Mass/Vol] 0.1 mg/dL Normal <0.3 [facility] Comment on above: Performed By: #### H FP, CHM7, MGO ####[facility] (DEFAULT)[address] [place] [address] Protein [Mass/Vol] 6.1 g/dL Low 6.4-8.3 [facility] Comment on above: Performed By: #### H FP, CHM7, MGO ####[facility] (DEFAULT)[address] [place] [address] Albumin [Mass/Vol] 2.8 g/dL Low 3.5 - 5.0 g/dL [facility] ALP [Catalytic activity/Vol] 103 U/L 32 - 126 U/L [facility] ALT [Catalytic activity/Vol] 26 U/L 10 - 52 U/L [facility] AST [Catalytic activity/Vol] 38 U/L 10 - 39 U/L [facility] Bilirubin [Mass/Vol] 0.9 mg/dL [facility] mg/dL [facility] Bilirubin.direct [Mass/Vol] 0.1 mg/dL NINF - 0.3 mg/dL [facility] Protein [Mass/Vol] 6.1 g/dL Low 6.4 - 8.3 g/dL [facility] HISTOPLASMA ANTIGEN, FLUIDon 09-05-2023 FH SOURCE BAL RML [facility] Histo FLD interpretation Negative [facility] Histoplasma Antigen, FLUID Not detected ng/mL [facility] HISTOPLASMA CAPSULATUM/BLAST OMYCES SPECIES,PCR FLUIDon 09-05-2023 HISTO/BLASTO RESULT Negative Not Applicable [facility] Specimen source Nom (Unsp spec) BAL RML [facility] IMMUNOPHENOTYPING, TISSUE/FL UIDon 09-05-2023 BKR DX CODE Use Ordering [facility] Flow Interpretation See Comment [facility] Flow Interpreted by: Yossi Perla MD, PhD [facility] MAGNESIUMon 09-05-2023 Magnesium [Mass/Vol] 1.7 mg/dL Normal 1.6-2.6 [facility] Comment on above: Performed By: #### H FP, CHM7, MGO ####[facility] (DEFAULT)[address] [place] [id number] Interpretation and review of laboratory results Normal [facility] Magnesium [Mass/Vol] 1.7 mg/dL 1.6 - 2 .6 mg/dL [facility] No Panel Informationon 09-05 Interpretation and review of laboratory results Abnormal [facility] TACROLIMUS LEVEL, TROUGH (MT E DRUG LEVEL)Ordered By: Raymundo Mehta on 09-05-2023 Interpretation and review of laboratory results Normal [facility] Tacrolimus (Bld) [Mass/Vol] 5.3 ng/mL [facility] TACROLIMUS LEVEL, TROUGH (MT E DRUG LEVEL)on 09-05-2023 Tacrolimus, Trough 5.3 ng/mL Normal Bone Susana ow Transplant: 4.0-12.0, Therapeutic: 5.0-15.0 [facility] Comment on above: Order Comment: Pleas e draw at specified interval PRIOR to dose. Do not hold dose to wait for level. Specimens batched twice per day, (M-F) and once per day weekendsMethod performed is a chemiluminescent microparticle immunoasssay on the ReferStar Cathead Operator i2000.The range is based on experience at [facility] and users should be aware that target concentrations vary widely depending on concomitant therapy, time post-transplant, and desired degree of immunosuppression. Performed By: #### T ACRO ####[facility] (DEFAULT)[address] [place] [address] ARTERIAL BLOOD GAS (FULL GOSS EL)on 09-04-2023 Base Excess -1.2 mmol/L Normal -3.0-3.0 [facility] Comment on above: Performed By: #### G YASMINE ####U [facility] (DEFAULT)[address] [place] [address] Carboxyhemoglobin 0.7 % Normal <=1.5 [facility] Comment on above: Performed By: #### G ASALL ####U [facility] (DEFAULT)[address] [facility] [place] [address] Glucose [Mass/Vol] 159 mg/dL High 70-99 [facility] Comment on above: Performed By: #### G ASALL ####[facility] (DEFAULT)[address] [place] [address] HCO3 (Bld) [Moles/Vol] 22 mmol/L Normal 22-28 [facility] Comment on above: Performed By: #### G YASMINE ####[facility] (DEFAULT)[address] [facility] [place] [address] Hematocrit (Bld) [Volume fraction] 38.0 % Low 40.2-50.4 [facility] Comment on above: Performed By: #### G ASALL ####[facility] (DEFAULT)[address] [place] [address] Hemoglobin (Bld) [Mass/Vol] 12.6 g/dL Low 13.4-16.8 [facility] Comment on above: Performed By: #### G ASALL ####[facility] (DEFAULT)[address] [place] [address] Ionized Calcium, Whole Blood 4.79 mg/dL Normal 4.60-5.30 [facility] Comment on above: Performed By: #### G ASALL ####[facility] (DEFAULT)[address] [facility] [place] [address] Lactate, Whole Blood 2.0 mmol/L High 0.5-1.6 [facility] Comment on above: Performed By: #### Vale UNDERWOOD ####[facility] (DEFAULT)[address] [place] [address] Methemoglobin 0.0 % Normal <=1.5 [facility] Comment on above: Performed By: #### Vale UNDERWOOD ####[facility] (DEFAULT)[address] [place] [address] Oxyhemoglobin 91 % Low 94-98 [facility] Comment on above: Performed By: #### Vale UNDERWOOD ####[facility] (DEFAULT)[address] [place], [place] [address], [place] [address] pCO2 30 mm Hg Low 32-48 [facility] Comment on above: Performed By: #### Vale UNDERWOOD ####[facility] (DEFAULT)[address] [place] [address] pH (Bld) 7.48 [pH] High 7.35-7.45 [facility] Comment on above: Performed By: #### Vale UNDERWOOD ####[facility] (DEFAULT)[address] [place], [place] [address], [place] [address] pO2 62 mm Hg Low 83-108 [facility] Comment on above: Performed By: #### Vale UNDERWOOD ####[facility] (DEFAULT)[address] [place] [address] Potassium [Moles/Vol] 4.2 mmol/L Normal 3.5-5.0 [facility] Comment on above: Performed By: #### Vale UNDERWOOD ####[facility] (DEFAULT)[address] [place], [place] [address], [place] [address] sO2 92 % Low 94-98 [facility] Comment on above: Performed By: #### Vale UNDERWOOD ####[facility] (DEFAULT)[address] [place] [address] Sodium [Moles/Vol] 130 mmol/L Low 135-145 [facility] Comment on above: Performed By: #### G YASMINE ####[facility] (DEFAULT)[address] [place] [address] Specimen type Nom (Spec) Arterial Normal [facility] Comment on above: Performed By: #### G YASMINE ####[facility] (DEFAULT)[address] [place] [address] Base excess Calc (Bld) [Moles/Vol] -1.2000 mmol/L -3.0 - 3.0 mmol/L [facility] Calcium.ionized (Bld) [Mass/Vol] 4.79 mg/dL 4.60 - 5.30 mg/dL [facility] Carboxyhemoglobin (Bld) [Mass fraction] 0.7 % NINF - 1.5 % [facility] CO2 (Bld) [Partial pressure] 30 mm[Hg] Low [facility] Glucose [Mass/Vol] 159 mg/dL High 70 - 99 mg/dL [facility] HCO3 (Bld) [Moles/Vol] 22 mmol/L 22 - 28 mmol/L [facility] Hematocrit (Bld) [Volume fraction] 38.0 % Low 40.2 - 50.4 % [facility] Hemoglobin (Bld) [Mass/Vol] 12.6 g/dL Low 13.4 - 16.8 g/dL [facility] Interpretation and review of laboratory results Abnormal [facility] Lactate [Moles/Vol] 2.0 mmol/L High 0.5 - 1. 6 mmol/L [facility] Methemoglobin (Bld) [Mass fraction] 0.0 % NINF - 1.5 % [facility] Oxygen (Bld) [Partial pressure] 62 mm[Hg] Low [facility] Oxygen saturation in Blood 92 % Low 94 - 98 % [facility] Oxyhemoglobin 91 % Low 94 - 98 % [facility] pH (Bld) 7.48 [pH] High 7.35 - 7.45 [facility] Potassium [Moles/Vol] 4.2 mmol/L 3.5 - 5.0 mmol/L [facility] Sodium [Moles/Vol] 130 mmol/L Low 135 - 145 mmol/L [facility] Specimen source Nom (Unsp spec) Arterial [facility] Bacteria identified Respirat ory culture Nom (Unsp spec)on 09-04-2023 Bacteria identified Cx Nom (Unsp spec) NO GROWTH DAY 2 OF 2 [facility] Microscopic observation Other stain Nom (Unsp spec) Cytocentrifuge preparation [facility] Microscopic observation Other stain Nom (Unsp spec) Neutrophils, Rare [facility] Microscopic observation Other stain Nom (Unsp spec) Red Blood Cells Present [facility] Microscopic observation Other stain Nom (Unsp spec) No organisms seen [facility] Bacteria identified Respirat ory culture Nom (Unsp spec)Ordered By: Jose Salgado on 09-04-2023 Bacteria identified Cx Nom (Unsp spec) NO GROWTH DAY 2 OF 2 [facility] Microscopic observation Other stain Nom (Unsp spec) Cytocentrifuge preparation [facility] Microscopic observation Other stain Nom (Unsp spec) Neutrophils, Moderate [facility] Microscopic observation Other stain Nom (Unsp spec) Red Blood Cells Present [facility] Microscopic observation Other stain Nom (Unsp spec) No organisms seen [facility] CBC,PLATELETSon 09-04-2023 Hematocrit (Bld) [Volume fraction] 38.7 % Low 39.6-48.8 [facility] Comment on above: Performed By: #### H [facility] ####[facility] (DEFAULT)[address] [place] [address] Hemoglobin (Bld) [Mass/Vol] 12.3 g/dL Low 13.4-16.8 [facility] Comment on above: Performed By: #### H [facility] ####[facility] (DEFAULT)[address] [place] [address] MCV (RBC) [Entitic vol] 87.8 fL Normal 79.0-94.5 [facility] Comment on above: Performed By: #### H EMOGC ####U [facility] (DEFAULT)[address] [place] [address] Mean Cell Hgb 27.9 pg Normal 26.1-33.3 [facility] Comment on above: Performed By: #### H EMOGC ####U [facility] (DEFAULT)[address] [facility] [place] [address] Mean Cell Hgb Conc 31.8 g/dL Low 31.9-36.5 [facility] Comment on above: Performed By: #### H EMOGC ####[facility] (DEFAULT)[address] [place] [address] Platelet mean volume (Bld) [Entitic vol] 9.8 fL Normal 8.7-12.3 [facility] Comment on above: Performed By: #### H EMOGC ####[facility] (DEFAULT)[address] [facility] [place] [address] Platelets (Bld) [#/Vol] 173 10*3/uL Normal 146-337 [facility] Comment on above: Performed By: #### H EMOGC ####[facility] (DEFAULT)[address] [place] [address] RBC (Bld) [#/Vol] 4.41 10*6/uL Normal 4.38-5.83 [facility] Comment on above: Performed By: #### H EMOGC ####[facility] (DEFAULT)[address] [facility] [place] [address] RBC Distribution 13.2 % Normal 10.9-14.3 [facility] Comment on above: Performed By: #### H EMOGC ####[facility] (DEFAULT)[address] [facility] [place] [address] WBC (Bld) [#/Vol] 4.57 10*3/uL Normal 3.73-10.10 [facility] Comment on above: Performed By: #### H [facility] ####[facility] (DEFAULT)[address] [place] [address] Erythrocyte distribution width (RBC) [Ratio] 13.2 % 10.9 - 14.3 % [facility] Hematocrit (Bld) [Volume fraction] 38.7 % Low 39.6 - 48.8 % [facility] Hemoglobin (Bld) [Mass/Vol] 12.3 g/dL Low 13.4 - 16.8 g/dL [facility] Interpretation and review of laboratory results Abnormal [facility] MCH (RBC) [Entitic mass] 27.9 pg 26.1 - 33.3 pg [facility] MCHC (RBC) [Mass/Vol] 31.8 g/dL Low 31.9 - 36.5 g/dL [facility] MCV (RBC) [Entitic vol] 87.8 fL 79.0 - 94.5 fL [facility] Platelet mean volume (Bld) [Entitic vol] 9.8 fL 8.7 - 12.3 fL [facility] Platelets (Bld) [#/Vol] 173 10*3/uL 146 - 337 K/uL [facility] RBC (Bld) [#/Vol] 4.41 10*6/uL [facility] WBC (Bld) [#/Vol] 4.57 10*3/uL 3.73 - 10. 10 K/uL [facility] CHEM 7 (LYTES,BUN,CREA,GLUC) on 09-04-2023 Anion gap [Moles/Vol] 16 mmol/L Normal 7-17 [facility] Comment on above: Performed By: #### M GO, CHM7, [facility] ####[facility] (DEFAULT)[address] [place] [address] Chloride [Moles/Vol] 104 mmol/L Normal 98-108 [facility] Comment on above: Performed By: #### NATHANIEL RAMÍREZ, HFP ####[facility] (DEFAULT)[address] [facility] [place] [address] CO2 [Moles/Vol] 18 mmol/L Low 21-31 [facility] Comment on above: Performed By: #### NATHANIEL RAMÍREZ, HFP ####[facility] (DEFAULT)[address] [place] [address] Creatinine [Mass/Vol] 1.22 mg/dL Normal 0.70-1.30 [facility] Comment on above: Performed By: #### NATHANIEL RAMÍREZ, HFP ####[facility] (DEFAULT)[address] [facility] [place] [address] GFR/1.73 sq M.predicted among non-blacks MDRD (S/P/Bld) [Vol rate/Area] 71 mL/min/{1.73_m2} Normal >=60 [facility] Comment on above: Result Comment: Repo rted eGFR is based on the CKD-EPI 2020 equation using creatinine, age, and sex. Performed By: #### NATHANIEL RAMÍREZ, HFP ####[facility] (DEFAULT)[address] [place] [address] Glucose [Mass/Vol] 124 mg/dL High 70-99 [facility] Comment on above: Performed By: #### NATHANIEL RAMÍREZ, HFP ####[facility] (DEFAULT)[address] [place] [address] Osmolality [Osmolality] 284 mosm/kg Normal 278-305 [facility] Comment on above: Performed By: #### NATHANIEL RAMÍREZ, HFP ####U [facility] (DEFAULT)[address] [place] [address] Potassium [Moles/Vol] 3.9 mmol/L Normal 3.5-5.0 [facility] Comment on above: Performed By: #### Rdo BLOOM, CHM7, HFP ####[facility] (DEFAULT)[address] [place] [address] Sodium [Moles/Vol] 134 mmol/L Low 135-145 [facility] Comment on above: Performed By: #### M MERLE CHM7, HFP ####[facility] (DEFAULT)[address] [place] [address] Urea nitrogen [Mass/Vol] 15 mg/dL Normal 7-25 [facility] Comment on above: Performed By: #### M MERLE CHM7, HFP ####[facility] (DEFAULT)[address] [place] [address] Urea nitrogen/Creatinine [Mass ratio] 12 mg/mg Normal [facility] Comment on above: Performed By: #### Rod BLOOM CHM7, HFP ####[facility] (DEFAULT)[address] [facility] [place] [address] Anion gap [Moles/Vol] 16 mmol/L 7 - 17 mmol/L [facility] Chloride [Moles/Vol] 104 mmol/L 98 - 10 8 mmol/L [facility] CO2 [Moles/Vol] 18 mmol/L Low 21 - 31 mmol/L [facility] Creatinine [Mass/Vol] 1.22 mg/dL 0.70 - 1.30 mg/dL [facility] eGFR, CKD-EPI, Male 71 - [facility] Glucose [Mass/Vol] 124 mg/dL High 70 - 99 mg/dL [facility] Osmolality Calc [Osmolality] 284 [facility] Potassium [Moles/Vol] 3.9 mmol/L 3.5 - 5.0 mmol/L [facility] Sodium [Moles/Vol] 134 mmol/L Low 135 - 145 mmol/L [facility] Urea nitrogen [Mass/Vol] 15 mg/dL 7 - 25 mg/dL [facility] Urea nitrogen/Creatinine [Mass ratio] 12 mg/mg [facility] CMV PCR,FLUIDS,URINE,EYE ETC on 09-04-2023 Specimen source Nom (Unsp spec) BAL LLL [facility] Specimen source Nom (Unsp spec) BAL RML [facility] HEPATIC FUNCTION PANELon Albumin [Mass/Vol] 3.0 g/dL Low 3.5-5.0 [facility] Comment on above: Performed By: #### M MERLE CHM7, HFP ####[facility] (DEFAULT)[address] [place] [address] ALP [Catalytic activity/Vol] 112 U/L Normal 32-126 [facility] Comment on above: Performed By: #### M MERLE CHM7, HFP ####[facility] (DEFAULT)[address] [place] [address] ALT [Catalytic activity/Vol] 22 U/L Normal 10-52 [facility] Comment on above: Performed By: #### M MERLE CHM7, HFP ####[facility] (DEFAULT)[address] [place] [address] AST [Catalytic activity/Vol] 30 U/L Normal 10-39 [facility] Comment on above: Performed By: #### M MERLE CHM7, HFP ####[facility] (DEFAULT)[address] [place] [address] Bilirubin [Mass/Vol] 1.2 mg/dL Normal <1.5 [facility] Comment on above: Performed By: #### M MERLE CHM7, HFP ####[facility] (DEFAULT)[address] [place] [address] Bilirubin.indirect [Mass/Vol] 0.4 mg/dL High <0.3 [facility] Comment on above: Performed By: #### M GO, CHM7, HFP ####[facility] (DEFAULT)[address] [place] [address] Protein [Mass/Vol] 6.4 g/dL Normal 6.4-8.3 [facility] Comment on above: Performed By: #### M NATHANIEL BLOOM, HFP ####[facility] (DEFAULT)[address] [place] [address] Albumin [Mass/Vol] 3.0 g/dL Low 3.5 - 5.0 g/dL [facility] ALP [Catalytic activity/Vol] 112 U/L 32 - 126 U/L [facility] ALT [Catalytic activity/Vol] 22 U/L 10 - 52 U/L [facility] AST [Catalytic activity/Vol] 30 U/L 10 - 39 U/L [facility] Bilirubin [Mass/Vol] 1.2 mg/dL NINF - 1.5 mg/dL [facility] Bilirubin.direct [Mass/Vol] 0.4 mg/dL High NINF - 0.3 mg/dL [facility] Protein [Mass/Vol] 6.4 g/dL 6.4 - 8.3 g/dL [facility] LEGIONELLA PCRon 09-04-2023 Legionella sp rRNA Probe Ql (Unsp spec) Negative Not Applicable [facility] Specimen source Nom (Unsp spec) BAL RML [facility] Laboratory - Microbiology an d Antimicrobial susceptibilityon 09-04-2023 CMV DNA ESTELITA+probe Ql (Unsp spec) Negative Negative [facility] MAGNESIUMon 09-04-2023 Magnesium [Mass/Vol] 1.4 mg/dL Low 1.6-2.6 [facility] Comment on above: Performed By: #### NATHANIEL RAMÍREZ, HFP ####[facility] (DEFAULT)[address] [place] [address] Magnesium [Mass/Vol] 1.4 mg/dL Low 1.6 - 2 .6 mg/dL [facility] No Panel Informationon 09-04 Annotation comment [Interpretation] Narrative DNR [facility] PN Report Status DNR [facility] Pneumocystis jiroveci,PCR result Negative Not Applicable [facility] Interpretation and review of laboratory results Abnormal [facility] PNEUMOCYSTIS JIROVECI,PCRon 09-04-2023 Specimen source Nom (Unsp spec) BAL LLL [facility] Specimen source Nom (Unsp spec) BAL RML [facility] Portable XR Chest Viewson RADIOLOGY RADIOLOGY [facility] Radiology Study observation (narrative) [facility] Portable XR Chest ViewsOrder ed By: Joanie Nugent on 09-04-2023 [facility] Work Phone: TACROLIMUS LEVEL, TROUGH (MT E DRUG LEVEL)on 09-04-2023 Interpretation and review of laboratory results Abnormal [facility] Tacrolimus (Bld) [Mass/Vol] 3.6 ng/mL Low [facility] Tacrolimus, Trough 3.6 ng/mL Low Bone Susana ow Transplant: 4.0-12.0, Therapeutic: 5.0-15.0 [facility] Comment on above: Order Comment: Pleas e draw at specified interval PRIOR to dose. Do not hold dose to wait for level. Specimens batched twice per day, (M-F) and once per day weekendsMethod performed is a chemiluminescent microparticle immunoasssay on the [employer] Cathead Operator i2000.The range is based on experience at [facility] and users should be aware that target concentrations vary widely depending on concomitant therapy, time post-transplant, and desired degree of immunosuppression. Performed By: #### T ACRO ####[facility] (DEFAULT)[address] [place] [id number] XR CHEST PORTABLEon 09-04-20 23 XR CHEST PORTABLE Normal [facility] ASPERGILLUS ANTIGEN, BALon 1 Galactomannan Ag IA Qn (Unsp spec) <0.500 NINF [facility] Galactomannan Ag IA Qn (Unsp spec) <0.500 NINF [facility] BAL CONSULTOrdered By: Noa Peralta on 09-03-2023 ALVEOLAR MACROPHAGES 32 % [facility] Work Phone: Bal comments Correlation with microbiology stains and cultures is recommended. [facility] Work Phone: Bal Diff Quik Stain Quality Check Acceptable [facility] Work Phone: BKR BAL INTERPRETATION Cellular specimen comprised of alveolar macrophages and small lymphocytes. No definitive microorganisms are observed. Moderate degenerative changes. [facility] Work Phone: BKR DX CODE Use Ordering [facility] Work Phone: Eosinophils Patterson stain Ql (Unsp spec) 0 % [facility] Work Phone: Lymphocytes/100 WBC (Bld) 57 % [facility] Work Phone: Neutrophils/100 WBC Manual cnt (Bronch spec) 11 % [facility] Work Phone: Pathologist review Jame (Unsp spec) [Interp] Leonardo Peralta MD [facility] Work Phone: [facility] Work Phone: BAL CONSULTon 09-03-2023 ALVEOLAR MACROPHAGES 33 % [facility] Bal comments Correlation with microbiology stains and cultures is recommended. Correlation with viral studies is recommended. [facility] Bal Diff Quik Stain Quality Check Acceptable [facility] BKR BAL INTERPRETATION Cellular specimen comprised of alveolar macrophages and small lymphocytes. No definitive microorganisms are observed. Rare degenerating cells with changes suggestive of viral cytopathic effect are noted. Moderate degenerative changes. [facility] BKR DX CODE Use Ordering [facility] Eosinophils Patterson stain Ql (Unsp spec) 0 % [facility] Lymphocytes/100 WBC (Bld) 49 % [facility] Neutrophils/100 WBC Manual cnt (Bronch spec) 18 % [facility] Pathologist review Jame (Unsp spec) [Interp] Leonardo Peralta MD [facility] BRONCHOSCOPYon 09-03-2023 LAB, [facility] CBC,PLATELETSon 09-03-2023 Hematocrit (Bld) [Volume fraction] 39.6 % Normal 39.6-48.8 [facility] Comment on above: Performed By: #### H EMOGC ####[facility] (DEFAULT)[address] [facility] [place] [address] Hemoglobin (Bld) [Mass/Vol] 12.8 g/dL Low 13.4-16.8 [facility] Comment on above: Performed By: #### H EMOGC ####[facility] (DEFAULT)[address] [facility] [place] [address] MCV (RBC) [Entitic vol] 85.9 fL Normal 79.0-94.5 [facility] Comment on above: Performed By: #### H EMOGC ####[facility] (DEFAULT)[address] [facility] [place] [address] Mean Cell Hgb 27.8 pg Normal 26.1-33.3 [facility] Comment on above: Performed By: #### H EMOGC ####[facility] (DEFAULT)[address] [place] [address] Mean Cell Hgb Conc 32.3 g/dL Normal 31.9-36.5 [facility] Comment on above: Performed By: #### H EMOGC ####[facility] (DEFAULT)[address] [facility] [place] [address] Platelet mean volume (Bld) [Entitic vol] 9.4 fL Normal 8.7-12.3 [facility] Comment on above: Performed By: #### H EMOGC ####[facility] (DEFAULT)[address] [facility] [place] [address] Platelets (Bld) [#/Vol] 222 10*3/uL Normal 146-337 [facility] Comment on above: Performed By: #### H EMO ####[facility] (DEFAULT)[address] [place] [address] RBC (Bld) [#/Vol] 4.61 10*6/uL Normal 4.38-5.83 [facility] Comment on above: Performed By: #### H EMO ####[facility] (DEFAULT)[address] [place] [address] RBC Distribution 13.4 % Normal 10.9-14.3 [facility] Comment on above: Performed By: #### H EMO ####[facility] (DEFAULT)[address] [place] [address] WBC (Bld) [#/Vol] 4.36 10*3/uL Normal 3.73-10.10 [facility] Comment on above: Performed By: #### H EMO ####[facility] (DEFAULT)[address] [place] [address] Erythrocyte distribution width (RBC) [Ratio] 13.4 % 10.9 - 14.3 % [facility] Hematocrit (Bld) [Volume fraction] 39.6 % 39.6 - 48.8 % [facility] Hemoglobin (Bld) [Mass/Vol] 12.8 g/dL Low 13.4 - 16.8 g/dL [facility] Interpretation and review of laboratory results Abnormal [facility] MCH (RBC) [Entitic mass] 27.8 pg 26.1 - 33.3 pg [facility] MCHC (RBC) [Mass/Vol] 32.3 g/dL 31.9 - 36.5 g/dL [facility] MCV (RBC) [Entitic vol] 85.9 fL 79.0 - 94.5 fL [facility] Platelet mean volume (Bld) [Entitic vol] 9.4 fL 8.7 - 12.3 fL [facility] Platelets (Bld) [#/Vol] 222 10*3/uL 146 - 337 K/uL [facility] RBC (Bld) [#/Vol] 4.61 10*6/uL [facility] WBC (Bld) [#/Vol] 4.36 10*3/uL 3.73 - 10. 10 K/uL [facility] CHEM 7 (LYTES,BUN,CREA,GLUC) on 09-03-2023 Anion gap [Moles/Vol] 12 mmol/L Normal 7-17 [facility] Comment on above: Performed By: #### NATHANIEL RAMÍREZ, HFP ####[facility] (DEFAULT)[address] [place] [address] Chloride [Moles/Vol] 104 mmol/L Normal 98-108 [facility] Comment on above: Performed By: #### NATHANIEL RAMÍREZ, HFP ####[facility] (DEFAULT)[address] [place] [address] CO2 [Moles/Vol] 24 mmol/L Normal 21-31 [facility] Comment on above: Performed By: #### NATHANIEL RAMÍREZ, HFP ####[facility] (DEFAULT)[address] [place] [address] Creatinine [Mass/Vol] 1.20 mg/dL Normal 0.70-1.30 [facility] Comment on above: Performed By: #### NATHANIEL RAMÍREZ, HFP ####[facility] (DEFAULT)[address] [place] [address] GFR/1.73 sq M.predicted among non-blacks MDRD (S/P/Bld) [Vol rate/Area] 73 mL/min/{1.73_m2} Normal >=60 [facility] Comment on above: Result Comment: Repo rted eGFR is based on the CKD-EPI 2020 equation using creatinine, age, and sex. Performed By: #### NATHANIEL RAMÍREZ, HFP ####[facility] (DEFAULT)[address] [place] [address] Glucose [Mass/Vol] 112 mg/dL High 70-99 [facility] Comment on above: Performed By: #### NATHANIEL RAMÍREZ, HFP ####[facility] (DEFAULT)[address] [place] [address] Osmolality [Osmolality] 288 mosm/kg Normal 278-305 [facility] Comment on above: Performed By: #### NATHANIEL RAMÍREZ, HFP ####[facility] (DEFAULT)[address] [place] [address] Potassium [Moles/Vol] 4.1 mmol/L Normal 3.5-5.0 [facility] Comment on above: Performed By: #### NATHANIEL RAMÍREZ, HFP ####[facility] (DEFAULT)[address] [place] [address] Sodium [Moles/Vol] 136 mmol/L Normal 135-145 [facility] Comment on above: Performed By: #### NATHANIEL RMAÍREZ, HFP ####[facility] (DEFAULT)[address] [place] [address] Urea nitrogen [Mass/Vol] 17 mg/dL Normal 7-25 [facility] Comment on above: Performed By: #### NATHANIEL RAMÍREZ, HFP ####[facility] (DEFAULT)[address] [place] [address] Urea nitrogen/Creatinine [Mass ratio] 14 mg/mg Normal [facility] Comment on above: Performed By: #### NATHANIEL RAMÍREZ, HFP ####[facility] (DEFAULT)[address] [place] [address] Anion gap [Moles/Vol] 12 mmol/L 7 - 17 mmol/L [facility] Chloride [Moles/Vol] 104 mmol/L 98 - 10 8 mmol/L [facility] CO2 [Moles/Vol] 24 mmol/L 21 - 31 mmol/L [facility] Creatinine [Mass/Vol] 1.20 mg/dL 0.70 - 1.30 mg/dL [facility] eGFR, CKD-EPI, Male 73 - PINF [facility] Glucose [Mass/Vol] 112 mg/dL High 70 - 99 mg/dL [facility] Osmolality Calc [Osmolality] 288 [facility] Potassium [Moles/Vol] 4.1 mmol/L 3.5 - 5.0 mmol/L [facility] Sodium [Moles/Vol] 136 mmol/L 135 - 145 [facility] Urea nitrogen [Mass/Vol] 17 mg/dL 7 - 25 mg/dL [facility] Urea nitrogen/Creatinine [Mass ratio] 14 mg/[facility] CYTOLOGY, NON-GYNOrdered By: Sherice Jimenez on 09-03-2023 CYTOLOGIC DIAGNOSIS u8cftZFhTTVhdOCrAANtR9uhfsT uLBYryVJhE1OzgcleTRloCR3jDL 6yvGjhaIAmrLShQVNeTpLmb8uop 790sRDun2imJFTFkimyePb7n6xb JFSYsW0vm3d4zH28GYCluZ6prUM fJKsoppHxRTopnlDbvoUwFoz7AY Z7sIhxTskpwNN8zREsoHQ9HBvqs 3AuxRcynLukVOZ1HAOtDwseGXyb pPF4yNIxwZwnhNPxGW8if6rbvPQ 1noFjNNB9lAibnST2lLqgibinc5 brwHZ8sXS9DVnboVH0QLofBbAdC 2qmZNAukQ7eP56qC7njQGGhaQnl UHyjZFWseAK0ZRF9YVWot1stQBU fcKMqvMQlKlIsCAaxEgf2i9rsTF AxwB92vNPkutQ3gAgeCWuccCM0W W22ECqcz7NjNSGdoNcoRXEmnR1b YzIzXGxldmVsbmZjbjIzXGxldmV hxgZqJJfqgbIzi3TljzGnoRQ1EM yvxqUohTM3oTbvRJDeR9Q7T539E WylooFmbcBqFdAojnz6VTGclRfc bGlzdGxldmVsXGxldmVsbmZjMjN jxMQ0FPonFgHbQkStvXE9URplHk UrxGV3YYvkcFCasEB7GKdflHJ5O Oo2IMp8HUgnXChoHaf8qDwugHR3 BSatkE3uXSMqT44cMiJ7h8vvcAM 0jQH1DAnazCZ7XMrtRmDkC8awJF UzeB3gR40oT8dfVBHelMqoPPpcU YOrrLZ2ITK9UGMvu5onBIZbqRKn nEKwHuQaDKmbKfl7h7arNUDexO3 0oEWdhtP7wAwhWF42PMzxe8GtPF XpiJzcTBUpzZ3iUbJgQSbdzbDyq mZjbjIzXGxldmVsamMwXGxldmVs c1AtjeWtpJA1IFrkfmXbyIB7gCm wOCNxL0U4Y158EAubuhCjwpZkGr Kerih5HDPulOxkdCyxzIspviUhH OvaftLsvkWqEfJsbLQ0RSfdDbCa CvFhuDT0NXlnLzVhtDF1STkkzAI tbLR8ZDwlkKU4JKf4GRi2QRsoFA dhRms7iUjqzNI1DTcerD4nZAOqL 92lVzL5v6lueKO7nVE6SEeiuWE5 KUuhOzGfU7lqMYYkbI5iA09gP2d cUZVgkKujJRsnTIWvsUD4FYA9HZ Cbn3rpJCAtyWPimOKwVxTyWLqmK tc7r6thOHFccD40bYClarT8vBlg NH96AEpfl1VpNXJkgNdhYWOrxE5 mYzIzXGxldmVsbmZjbjIzXGxldm JubeKnNSukdjNjs5JgdlXqkJW4L KttglEkgMF4xYafNBDbE8T2J011 HInqnrGxcqYeOnBvfge8YBAapCc cbGlzdGxldmVsXGxldmVsbmZjMj DsoHL4WJrpJsPeDzNyhNF7KYekP nAekPX5HXutpOCbhYV3KLgecGM3 WOo1JVj3RMvvZHmxYuf3fNhdiFE 8GGszaI8jPSLwP33iPxY9vM38BK nqtGwuvT52LQEajMDqtUHhbEH8H IhhqPiegL81IBPyoANkJDtgc3Bz OBVgTfM2WKT4ILOrbDiljS75SKS siJEeB657upSlJWyoPB81JITzmA AosrSoQkEsUBClaKTqiEA7KRFmE W2ngrmkYBhlDVngAMFnclD0DCVk eQCaL5WdNORrPR7kymbaHFE6DJe tBOLuFII3PlPfBQTwm6Nlted9Mz CtxMv6i1ukJKXgMNVixOepm8arI IL0MZPclKOiC7rncP3zVNLmBW3j zqxrn0niOQicKGmuFUBweUO7lyS 2PPCavMErH5PnkK9rTIApUCDsqe OjtXjyrC4gCyhedwLcXILtQMCCY xQMJl9DU4gZQIlDGI0IIPDjRMHT PNzEMQJNWIJPPHiYH1XOLBaOOrB mZCRlVJRtG2jPX1hFV0svYtiyJq RnYLnuRDUsOwMuQ9MsIYMfhgivI FLzRLISVQ6PMDNDHYGKUt5GILN1 CBTkjgosaQZ9CIgevcRyqHm2hZI ueGzlkO3bZjzqfjKgENDmFIMFzh ISTYukF68gauZfL6ReqSKzLXHxO HxpRL50aPLeBJUfvNCaXTm2iW3x IEgcmGcjnfEBnRKpzL8ffwgtPDl jZjBccGFyXGxpMFxsczBccGFyfQ == [facility] Work Phone: Case Report [facility] Work Phone: Clinical History t6ponENdLHXrvWFaLOIo S1ylccD sYDPdqNLvI6HildvsWLajNV7iHD 5fcSxphOJkoCCtSGPuQkJur9xda 926zMCna3uiHFCVrqctaIx4pWys L90wf9O4AxdsD6beAJIjMXcwUHE pSOyzrUKuACp1IMHmhPSvsmOsRa AgHZQhcYRzvDE2HNByZD4bmfyjL NvbISqeDEDjzyX3OXThfDSjN0Cn OMUfGX5wowgrWEC1VIheOWCcJPR 8VcOsAQPvj8Tshbb6QhOgkFa5y2 djDVTrBZVzrOgxu6rwWNS8NFAfj IRiO3soxM4eFWPdCH6pgulci9ny SLcuYKhtPDKhsAN3bxD2SQVjyXV uS5KleL7sZGYfHTOyjuOfkKgfeO 5cZnMyMFxjZjEgUmVuYWwgdHJhb dUioNPsjY6uYIDrtz5= [facility] Work Phone: For Immediate Release to Patient's MyChart? Yes Yes [facility] Work Phone: Gross Description a3znhLPzEZYrzDHpAMUq E2stuhN fIHGebJLsM2LrftvrKGhsMU1vIU 1lxZxxdAQjsKDoVGRrBqEho8gbc 761zVTnc9qvDNGZminsaXt8xMwn J34iq4M5UxalB54zbAPoUMY5JJS pJYQbxYSgUQRoBWT7ACCcnSHnJ5 koQXYtDQ7odqnkYLyzWMvkRIBjm LE5ILOtvBJxA1LnMEVeWAljSHGw yes0OnRaGd3vpCLcrYooEGktRXG kXHBsYWluXGZzMjAgTExMIEJBTF shSBLkLYKqiPSjXSh1EUMhbU8kl SGnoqJliKYktI2sqYkhUEfcAFHr RVVONAXlzGzoUBNGFYGhy1CioD9 ccGFyXHBhcmRccGFyXHBhcn0= [facility] Work Phone: [facility] Work Phone: HEPATIC FUNCTION PANELon Albumin [Mass/Vol] 3.2 g/dL Low 3.5-5.0 [facility] Comment on above: Performed By: #### M HELEN BLOOMM7, HFP ####[facility] (DEFAULT)[address] [place] [address] ALP [Catalytic activity/Vol] 118 U/L Normal 32-126 [facility] Comment on above: Performed By: #### M HELEN BLOOMM7, HFP ####[facility] (DEFAULT)[address] [place] [address] ALT [Catalytic activity/Vol] 25 U/L Normal 10-52 [facility] Comment on above: Performed By: #### M MERLE CHM7, HFP ####[facility] (DEFAULT)[address] [place] [address] AST [Catalytic activity/Vol] 32 U/L Normal 10-39 [facility] Comment on above: Performed By: #### M NATHANIEL BLOOM, HFP ####[facility] (DEFAULT)[address] [place] [address] Bilirubin [Mass/Vol] 1.0 mg/dL Normal <1.5 [facility] Comment on above: Performed By: #### M NATHANIEL BLOOM, HFP ####[facility] (DEFAULT)[address] [place] [address] Bilirubin.indirect [Mass/Vol] 0.3 mg/dL High <0.3 [facility] Comment on above: Performed By: #### NATHANIEL RAMÍREZ, HFP ####[facility] (DEFAULT)[address] [place] [address] Protein [Mass/Vol] 6.5 g/dL Normal 6.4-8.3 [facility] Comment on above: Performed By: #### NATHANIEL RAMÍREZ, HFP ####[facility] (DEFAULT)[address] [place] [address] Albumin [Mass/Vol] 3.2 g/dL Low 3.5 - 5.0 g/dL [facility] ALP [Catalytic activity/Vol] 118 U/L 32 - 126 U/L [facility] ALT [Catalytic activity/Vol] 25 U/L 10 - 52 U/L [facility] AST [Catalytic activity/Vol] 32 U/L 10 - 39 U/L [facility] Bilirubin [Mass/Vol] 1.0 mg/dL NINF - 1.5 mg/dL [facility] Bilirubin.direct [Mass/Vol] 0.3 mg/dL High NINF - 0.3 mg/dL [facility] Protein [Mass/Vol] 6.5 g/dL 6.4 - 8.3 g/dL [facility] HISTOPLASMA AND BLASTOMYCES ANTIGEN, ENZYME IMMUNOASSAY, SERMon 09-03-2023 Histoplasma/Blastomy antonia Ag Result Detected Critically abnormal Not Detected [facility] Histoplasma/Blastomy antonia Ag Value 5.3 ng/mL [facility] Interpretation and review of laboratory results Abnormal [facility] IMMUNOPHENOTYPING, TISSUE/FL UIDon 09-03-2023 BKR DX CODE Use Ordering Normal [facility] Comment on above: Order Comment: Pleas e lab add on to specimen collected yesterdayIMMUNOPHENOTYPING DIAGNOSISPATIENT NAME: GEORGE SLATER: 1970MRN: [id number]#: [id number] BY: Yossi Perla M.D,, Ph.D. [id number] TYPE: Bronchial Alveolar LavageLABORATORY INTERPRETATION:There is no [...] performance characteristicsdetermined The Flow Cytometry Laboratory at [facility]. It has notbeen cleared or approved by the FDA. This laboratory is certifiedunder the Clinical Laboratory Improvement Amendments (CLIA)as qualified to perform high complexity clinical laboratorytesting. This test is used for clinical purposes. It should notbe regarded as investigational or for research.The [facility] Flow Cytometry Laboratory lower limitof CLL MRD detection is 0.1% of the gated lymphocytes. Performed By: #### G IPP ####[facility] (DEFAULT)[address] [place] [address] Flow Interpretation See Comment Normal [facility] Comment on above: Order Comment: Dilan gregory lab add on to specimen collected yesterdayIMMUNOPHENOTYPING DIAGNOSISPATIENT NAME: GEORGE SLATER: 1970MRN: [id number]#: [id number] BY: Yossi Perla M.D,, Ph.D. [id number] TYPE: Bronchial Alveolar LavageLABORATORY INTERPRETATION:There is no [...] performance characteristicsdetermined The Flow Cytometry Laboratory at [facility]. It has notbeen cleared or approved by the FDA. This laboratory is certifiedunder the Clinical Laboratory Improvement Amendments (CLIA)as qualified to perform high complexity clinical laboratorytesting. This test is used for clinical purposes. It should notbe regarded as investigational or for research.The [facility] Flow Cytometry Laboratory lower limitof CLL MRD detection is 0.1% of the gated lymphocytes. Performed By: #### G IP ####[facility] ([facility])[address] [place] [address] Flow Interpreted by: Yossi Perla MD, PhD [facility] Comment on above: Order Comment: Pleas e lab add on to specimen collected yesterdayIMMUNOPHENOTYPING DIAGNOSISPATIENT NAME: GEORGE SLATER: 1970MRN: [id number]#: [id number] BY: Yossi Perla M.D,, Ph.D. [id number] TYPE: Bronchial Alveolar LavageLABORATORY INTERPRETATION:There is no [...] performance characteristicsdetermined The Flow Cytometry Laboratory at [facility]. It has notbeen cleared or approved by the FDA. This laboratory is certifiedunder the Clinical Laboratory Improvement Amendments (CLIA)as qualified to perform high complexity clinical laboratorytesting. This test is used for clinical purposes. It should notbe regarded as investigational or for research.The [facility] Flow Cytometry Laboratory lower limitof CLL MRD detection is 0.1% of the gated lymphocytes. Performed By: #### G IPP ####[facility] (DEFAULT)[address] [place] [address] MAGNESIUMon 09-03-2023 Magnesium [Mass/Vol] 1.6 mg/dL Normal 1.6-2.6 [facility] Comment on above: Performed By: #### M GO, CHM7, [facility] ####[facility] (DEFAULT)[address] [place] [address] Interpretation and review of laboratory results Normal [facility] Magnesium [Mass/Vol] 1.6 mg/dL 1.6 - 2 .6 mg/dL [facility] No Panel Informationon 09-03 Interpretation and review of laboratory results Abnormal [facility] PARVOVIRUS (B19) DNA, PCR, B LOODon 09-03-2023 PARVOVIRUS B19 BY RAPID PCR Not detected Not Detected [facility] MT SPEC SOURCE Whole Blood [facility] Portable XR Chest Viewson RADIOLOGY RADIOLOGY [facility] Radiology Study observation (narrative) [facility] Portable XR Chest ViewsOrder ed By: [place] on 09-03-2023 [facility] Work Phone: XR CHEST PORTABLEon 09-03-20 23 XR CHEST PORTABLE Normal [facility] ACID FAST CULTUREon 09-02-20 23 Bacteria identified Cx Nom (Unsp spec) NO GROWTH DAY 42 OF 42 Normal [facility] Comment on above: Performed By: #### A FB ####[facility] (DEFAULT)[address] [place] [address] Fluorochrome Stain No acid Fast Bacillus Seen Normal [facility] Comment on above: Performed By: #### A FB ####[facility] (DEFAULT)[address] [facility] [place] [address] Bacteria identified Cx Nom (Unsp spec) NO GROWTH DAY 42 OF 42 Normal [facility] Comment on above: Order Comment: BAL A FB culture. Clinical suspicion for non-tuberculous mycobacteria Performed By: #### A FB ####[facility] (DEFAULT)[address] [place] [address] Fluorochrome Stain No acid Fast Bacillus Seen Normal [facility] Comment on above: Order Comment: BAL A FB culture. Clinical suspicion for non-tuberculous mycobacteria Performed By: #### A FB ####[facility] (DEFAULT)[address] [place] [address] ASPERGILLUS (GALACTOMANNAN), ANTIGENon 09-02-2023 Galactomannan Ag IA Qn <0.500 NINF [facility] ASPERGILLUS ANTIGEN, BALon 1 Aspergillus Galactomannan Antigen, BAL <0.500 Normal <0.5 [facility] Comment on above: Result Comment: ---- ADDITIONAL INFORMATION This is a qualitative test and the resulted index value isnot indicative of disease severity. Serial testing isrecommended for patients at high risk for invasiveaspergillosis.This assay was performed using the FDA-cleared [employer] Aspergillus Galactomannan EIA.Test Performed by:[place] [id number] Director: Rosendo Bose M.D. Ph.D.; CLIA# [id number] Performed By: #### X ASGFL ####[facility] (DEFAULT)[address] [address] Aspergillus Galactomannan Antigen, BAL <0.500 Normal <0.5 [facility] Comment on above: Order Comment: BAL a spirgillus antigen Result Comment: ---- ADDITIONAL INFORMATION This is a qualitative test and the resulted index value isnot indicative of disease severity. Serial testing isrecommended for patients at high risk for invasiveaspergillosis.This assay was performed using the FDA-cleared [employer] Aspergillus Galactomannan EIA.Test Performed by:[place] [id number] Director: Rosendo Bose M.D. Ph.D.; CLIA# [id number] Performed By: #### X ASGFL ####[facility] (DEFAULT)[address] [place] [address] ATYPICAL BACTERIAL PNEUMONIA ,PCROrdered By: Shari Contreras on 09-02-2023 B. parapertussis DNA ESTELITA+probe Ql (Unsp spec) Not detected Not Detected [facility] B. pertussis DNA ESTELITA+probe Ql (Unsp spec) Not detected Not Detected [facility] C. pneumoniae DNA ESTELITA+probe Ql (Unsp spec) Not detected Not Detected [facility] Interpretation and review of laboratory results Normal [facility] M. pneumoniae DNA ESTELITA+probe Ql (Unsp spec) Not detected Not Detected [facility] ATYPICAL BACTERIAL PNEUMONIA ,PCRon 09-02-2023 Bordetella Parapertussis Not detected Normal Not Detected [facility] Comment on above: Order Comment: Viral transport [...] Clinical Microbiology Laboratory at The [facility]. It has not been cleared or approved by the FDA. The laboratory is required under CLIA as qualified to perform high-complexity testing. This test is used for clinical purposes. It should not be regarded as investigational or for research. Performed By: #### A TYPNE ####[facility] (DEFAULT)[address] [place] [address] Bordetella Pertussis Not detected Normal Not Detected [facility] Comment on above: Order Comment: Viral transport [...] Clinical Microbiology Laboratory at The [facility]. It has not been cleared or approved by the FDA. The laboratory is required under CLIA as qualified to perform high-complexity testing. This test is used for clinical purposes. It should not be regarded as investigational or for research. Performed By: #### A TYPNE ####[facility] (DEFAULT)[address] [place] [address] Chlamydia Pneumoniae Not detected Normal Not Detected [facility] Comment on above: Order Comment: Viral transport [...] Clinical Microbiology Laboratory at The [facility]. It has not been cleared or approved by the FDA. The laboratory is required under CLIA as qualified to perform high-complexity testing. This test is used for clinical purposes. It should not be regarded as investigational or for research. Performed By: #### A TYPNE ####[facility] (DEFAULT)[address] [place] [address] Mycoplasma Pneumoniae Not detected Normal Not Detected [facility] Comment on above: Order Comment: Viral transport [...] Clinical Microbiology Laboratory at The [facility]. It has not been cleared or approved by the FDA. The laboratory is required under CLIA as qualified to perform high-complexity testing. This test is used for clinical purposes. It should not be regarded as investigational or for research. Performed By: #### A TYPNE ####[facility] (DEFAULT)[address] [place] [address] BAL CONSULTon 09-02-2023 ALVEOLAR MACROPHAGES 33 % Normal [facility] Comment on above: Order Comment: BAL c onsultIf > 15% lymphocytes - please send for flow. Performed By: #### B ALC ####[facility] (DEFAULT)[address] [place] [address] Bal comments Correlation with microbiology stains and cultures is recommended. Correlation with viral studies is recommended. Normal [facility] Comment on above: Order Comment: BAL c onsultIf > 15% lymphocytes - please send for flow. Performed By: #### B ALC ####[facility] (DEFAULT)[address] [facility] [place] [address] Bal Diff Quik Stain Quality Check Acceptable Normal [facility] Comment on above: Order Comment: BAL c onsultIf > 15% lymphocytes - please send for flow. Performed By: #### B ALC ####[facility] (DEFAULT)[address] [place] [address] Bal Reviewed By: Leonardo Peralta MD Normal [facility] Comment on above: Order Comment: BAL c onsultIf > 15% lymphocytes - please send for flow. Performed By: #### B ALC ####[facility] (DEFAULT)[address] [place] [address], [place] [address] BKR BAL INTERPRETATION Cellular specimen comprised of alveolar macrophages and small lymphocytes. No definitive microorganisms are observed. Rare degenerating cells with changes suggestive of viral cytopathic effect are noted. Moderate degenerative changes. Normal [facility] Comment on above: Order Comment: BAL c onsultIf > 15% lymphocytes - please send for flow. Performed By: #### B ALC ####[facility] (DEFAULT)[address] [place] [address] BKR DX CODE Use Ordering Normal [facility] Comment on above: Order Comment: BAL c onsultIf > 15% lymphocytes - please send for flow. Performed By: #### B ALC ####[facility] (DEFAULT)[address] [place] [address], [place] [address] Eosinophils/100 WBC (Bld) 0 % Normal [facility] Comment on above: Order Comment: BAL c onsultIf > 15% lymphocytes - please send for flow. Performed By: #### B ALC ####[facility] (DEFAULT)[address] [place] [address], [place] [address] Lymphocytes/100 WBC (Bld) 49 % Normal [facility] Comment on above: Order Comment: BAL c onsultIf > 15% lymphocytes - please send for flow. Performed By: #### B ALC ####[facility] (DEFAULT)[address] [place] [address], [place] [address] Neutrophils/100 WBC (Bld) 18 % Normal [facility] Comment on above: Order Comment: BAL c onsultIf > 15% lymphocytes - please send for flow. Performed By: #### B ALC ####[facility] (DEFAULT)[address] [place] [address] ALVEOLAR MACROPHAGES 32 % Normal [facility] Comment on above: Order Comment: BAL c onsult for cell differential and pathologist review. Please do flow cytometry if > 12% lymphocytes Performed By: #### B ALC ####[facility] (DEFAULT)[address] [place] [address] Bal comments Correlation with microbiology stains and cultures is recommended. [facility] Comment on above: Order Comment: BAL c onsult for cell differential and pathologist review. Please do flow cytometry if > 12% lymphocytes Performed By: #### B ALC ####[facility] (DEFAULT)[address] [facility] [place] [address] Bal Diff Quik Stain Quality Check Acceptable Normal [facility] Comment on above: Order Comment: BAL c onsult for cell differential and pathologist review. Please do flow cytometry if > 12% lymphocytes Performed By: #### B ALC ####[facility] (DEFAULT)[address] [facility] [place] [address] Bal Reviewed By: Leonardo Peralta MD [facility] Comment on above: Order Comment: BAL c onsult for cell differential and pathologist review. Please do flow cytometry if > 12% lymphocytes Performed By: #### B ALC ####[facility] (DEFAULT)[address] [place] [address] BKR BAL INTERPRETATION Cellular specimen comprised of alveolar macrophages and small lymphocytes. No definitive microorganisms are observed. Moderate degenerative changes. [facility] Comment on above: Order Comment: BAL c onsult for cell differential and pathologist review. Please do flow cytometry if > 12% lymphocytes Performed By: #### B ALC ####[facility] (DEFAULT)[address] [facility] [place] [address] BKR DX CODE Use Ordering Normal [facility] Comment on above: Order Comment: BAL c onsult for cell differential and pathologist review. Please do flow cytometry if > 12% lymphocytes Performed By: #### B ALC ####[facility] (DEFAULT)[address] [place] [address] Eosinophils/100 WBC (Bld) 0 % Normal [facility] Comment on above: Order Comment: BAL c onsult for cell differential and pathologist review. Please do flow cytometry if > 12% lymphocytes Performed By: #### B ALC ####[facility] (DEFAULT)[address] [place] [address] Lymphocytes/100 WBC (Bld) 57 % Normal [facility] Comment on above: Order Comment: BAL c onsult for cell differential and pathologist review. Please do flow cytometry if > 12% lymphocytes Performed By: #### B ALC ####[facility] (DEFAULT)[address] [place] [address] Neutrophils/100 WBC (Bld) 11 % Normal [facility] Comment on above: Order Comment: BAL c onsult for cell differential and pathologist review. Please do flow cytometry if > 12% lymphocytes Performed By: #### B ALC ####[facility] (DEFAULT)[address] [facility] [place] [address] BRONCHOSCOPYon 09-02-2023 Radiology Study observation (narrative) [facility] Bacteria identified Cx Nom ( Bld)on 09-02-2023 Bacteria identified Cx Nom (Unsp spec) NO GROWTH DAY 5 OF 5 [facility] CBC,PLATELETSon 09-02-2023 Hematocrit (Bld) [Volume fraction] 39.9 % Normal 39.6-48.8 [facility] Comment on above: Performed By: #### H EMOGC ####[facility] (DEFAULT)[address] [facility] [place] [address] Hemoglobin (Bld) [Mass/Vol] 12.9 g/dL Low 13.4-16.8 [facility] Comment on above: Performed By: #### H EMOGC ####[facility] (DEFAULT)[address] [place] [address] MCV (RBC) [Entitic vol] 86.4 fL Normal 79.0-94.5 [facility] Comment on above: Performed By: #### H EMOGC ####[facility] (DEFAULT)[address] [place] [address] Mean Cell Hgb 27.9 pg Normal 26.1-33.3 [facility] Comment on above: Performed By: #### H EMOGC ####[facility] (DEFAULT)[address] [place] [address] Mean Cell Hgb Conc 32.3 g/dL Normal 31.9-36.5 [facility] Comment on above: Performed By: #### H EMOGC ####[facility] (DEFAULT)[address] [place] [address] Platelet mean volume (Bld) [Entitic vol] 9.5 fL Normal 8.7-12.3 [facility] Comment on above: Performed By: #### H EMOGC ####[facility] (DEFAULT)[address] [place] [address] Platelets (Bld) [#/Vol] 210 10*3/uL Normal 146-337 [facility] Comment on above: Performed By: #### H EMOGC ####[facility] (DEFAULT)[address] [place] [address] RBC (Bld) [#/Vol] 4.62 10*6/uL Normal 4.38-5.83 [facility] Comment on above: Performed By: #### H EMOGC ####[facility] (DEFAULT)[address] [place] [address] RBC Distribution 13.2 % Normal 10.9-14.3 [facility] Comment on above: Performed By: #### H EMOGC ####[facility] (DEFAULT)[address] [place] [address] WBC (Bld) [#/Vol] 4.12 10*3/uL Normal 3.73-10.10 [facility] Comment on above: Performed By: #### H [facility] ####[facility] (DEFAULT)[address] [place] [address] Erythrocyte distribution width (RBC) [Ratio] 13.2 % 10.9 - 14.3 % [facility] Hematocrit (Bld) [Volume fraction] 39.9 % 39.6 - 48.8 % [facility] Hemoglobin (Bld) [Mass/Vol] 12.9 g/dL Low 13.4 - 16.8 g/dL [facility] Interpretation and review of laboratory results Abnormal [facility] MCH (RBC) [Entitic mass] 27.9 pg 26.1 - 33.3 pg [facility] MCHC (RBC) [Mass/Vol] 32.3 g/dL 31.9 - 36.5 g/dL [facility] MCV (RBC) [Entitic vol] 86.4 fL 79.0 - 94.5 fL [facility] Platelet mean volume (Bld) [Entitic vol] 9.5 fL 8.7 - 12.3 fL [facility] Platelets (Bld) [#/Vol] 210 10*3/uL 146 - 337 K/uL [facility] RBC (Bld) [#/Vol] 4.62 10*6/uL [facility] WBC (Bld) [#/Vol] 4.12 10*3/uL 3.73 - 10. 10 K/uL [facility] CHEM 7 (LYTES,BUN,CREA,GLUC) on 09-02-2023 Anion gap [Moles/Vol] 13 mmol/L Normal 7-17 [facility] Comment on above: Performed By: #### H FP, MGO, CHM7 ####[facility] (DEFAULT)[address] [place] [address] Chloride [Moles/Vol] 105 mmol/L Normal 98-108 [facility] Comment on above: Performed By: #### H DOMENICA MONCADA CHM7 ####[facility] (DEFAULT)[address] [facility] [place] [address] CO2 [Moles/Vol] 22 mmol/L Normal 21-31 [facility] Comment on above: Performed By: #### H ANTWAN MGTJ Mercado7 ####[facility] (DEFAULT)[address] [place] [address] Creatinine [Mass/Vol] 1.25 mg/dL Normal 0.70-1.30 [facility] Comment on above: Performed By: #### H ANTWAN MGHELEN MercadoM7 ####[facility] (DEFAULT)[address] [place] [address] GFR/1.73 sq M.predicted among non-blacks MDRD (S/P/Bld) [Vol rate/Area] 69 mL/min/{1.73_m2} Normal >=60 [facility] Comment on above: Result Comment: Repo rted eGFR is based on the CKD-EPI 2020 equation using creatinine, age, and sex. Performed By: #### H DOMENICA MONCADA CHM7 ####[facility] (DEFAULT)[address] [place] [address] Glucose [Mass/Vol] 105 mg/dL High 70-99 [facility] Comment on above: Performed By: #### H ANTWAN MGO CHM7 ####[facility] (DEFAULT)[address] [place] [address] Osmolality [Osmolality] 287 mosm/kg Normal 278-305 [facility] Comment on above: Performed By: #### H ANTWAN MGO CHM7 ####[facility] (DEFAULT)[address] [place] [address] Potassium [Moles/Vol] 4.3 mmol/L Normal 3.5-5.0 [facility] Comment on above: Performed By: #### H DOMENICA MONCADA CHM7 ####[facility] (DEFAULT)[address] [place] [address] Sodium [Moles/Vol] 136 mmol/L Normal 135-145 [facility] Comment on above: Performed By: #### DOMENICA MCKINNON CHM7 ####[facility] (DEFAULT)[address] [facility] [place] [address] Urea nitrogen [Mass/Vol] 16 mg/dL Normal 7-25 [facility] Comment on above: Performed By: #### DOMENICA MCKINNON CHM7 ####[facility] (DEFAULT)[address] [place] [address] Urea nitrogen/Creatinine [Mass ratio] 13 mg/mg Normal [facility] Comment on above: Performed By: #### DOMENICA MCKINNNO CHM7 ####[facility] (DEFAULT)[address] [place] [address] Anion gap [Moles/Vol] 13 mmol/L 7 - 17 mmol/L [facility] Chloride [Moles/Vol] 105 mmol/L 98 - 10 8 mmol/L [facility] CO2 [Moles/Vol] 22 mmol/L 21 - 31 mmol/L [facility] Creatinine [Mass/Vol] 1.25 mg/dL 0.70 - 1.30 mg/dL [facility] eGFR, CKD-EPI, Male 69 - [facility] Glucose [Mass/Vol] 105 mg/dL High 70 - 99 mg/dL [facility] Osmolality Calc [Osmolality] 287 [facility] Potassium [Moles/Vol] 4.3 mmol/L 3.5 - 5.0 mmol/L [facility] Sodium [Moles/Vol] 136 mmol/L 135 - 145 mmol/L [facility] Urea nitrogen [Mass/Vol] 16 mg/dL 7 - 25 mg/dL [facility] Urea nitrogen/Creatinine [Mass ratio] 13 mg/mg [facility] CMV PCR,FLUIDS,URINE,EYE ETC on 09-02-2023 CMV by PCR Result Negative Normal Negative [facility] Comment on above: Result Comment: ---- ADDITIONAL INFORMATION This test was developed and its performance characteristicsdetermined by [facility] in a manner consistent with CLIArequirements. This test has not been cleared or approved bythe U.S. Food and Drug Administration.Test Performed by:[place] [id number] Director: Rosendo Bose M.D. Ph.D.; CLIA# [id number] Performed By: #### Y CMV ####[facility] (DEFAULT)[address] [address] CMV BY PCR SOURCE BAL [facility] Normal [facility] Comment on above: Performed By: #### Y CMV ####[facility] (DEFAULT)[address] [address] CMV by PCR Result Negative Normal Negative [facility] Comment on above: Result Comment: ---- ADDITIONAL INFORMATION This test was developed and its performance characteristicsdetermined by [facility] in a manner consistent with CLIArequirements. This test has not been cleared or approved bythe U.S. Food and Drug Administration.Test Performed by:[address] [address]Elc Director: Rosendo Bose M.D. Ph.D.; CLIA# [id number] Performed By: #### Y CMV ####[facility] (DEFAULT)[address] [address] CMV BY PCR SOURCE BAL [facility] Comment on above: Performed By: #### Y CMV ####[facility] (DEFAULT)[address] [place] [address] CYTOLOGY, NON-GYNon 09-02-20 CYTOLOGIC DIAGNOSIS Normal [facility] Comment on above: Result Comment: A. B RONCHOALVEOLAR LAVAGE, LEFT LOWER LOBE (CYTOLOGY):FINAL DIAGNOSIS:No Malignant Cells Are IdentifiedHypocellular Specimen Performed By: #### N ONGNNONFNA ####[facility] (DEFAULT)[address] [place] [address] Case Report Normal [facility] Comment on above: Result Comment: Medi abhishek Cytology Report Case: [id number] Provider: Crow Diaz MD Collected: 09/02/2023 08:38 AMOrdering [facility]: [facility] Received: 09/02/2023 10:44 AMPathologist: KENTON Caglepecimen: BRONCHOALVEOLAR LAVAGE, LLL BAL Performed By: #### N ONGNNONFNA ####[facility] (DEFAULT)[address] [place] [address] Clinical History Renal transplant. Normal [facility] Comment on above: Performed By: #### N ONGNNONFNA ####[facility] (DEFAULT)[address] [place] [address] Gross Description Normal [facility] Comment on above: Result Comment: LLL BAL1 ml hazy colorless fld unfixed1 TP slide Pap stainFor Immediate Release to Patient's MyChart? Yes Performed By: #### N ONGNNONFNA ####[facility] (DEFAULT)[address] [place] [address] FUNGUS CULTUREon 09-02-2023 Bacteria identified Cx Nom (Unsp spec) Normal [facility] Comment on above: Order Comment: Ident ification was performed on the MALDI-TOF mass spectrometer [employer]. This test was developed by The Clinical Microbiology Laboratory at The [facility]. It has not been cleared or approved by the FDA. The laboratory is regulated under CLIA as qualified to perform high-complexity testing. This test is used for clinical purposes. It should not be regarded as investigational or for research. Result Comment: Grow [id number] [place] Histoplasma capsulatum Performed By: #### F UN ####[facility] (DEFAULT)[address] [place] [address] Bacteria identified Cx Nom (Unsp spec) NO GROWTH DAY 28 OF 28 Normal [facility] Comment on above: Order Comment: BAL f ungal culture Performed By: #### F UN ####[facility] (DEFAULT)[address] [facility] [place] [address] HEPATIC FUNCTION PANELon Albumin [Mass/Vol] 3.2 g/dL Low 3.5-5.0 [facility] Comment on above: Performed By: #### H FP, MGO, CHM7 ####[facility] (DEFAULT)[address] [facility] [place] [address] ALP [Catalytic activity/Vol] 107 U/L Normal 32-126 [facility] Comment on above: Performed By: #### H FP, MGO, CHM7 ####[facility] (DEFAULT)[address] [place] [address] ALT [Catalytic activity/Vol] 20 U/L Normal 10-52 [facility] Comment on above: Performed By: #### H FP, MGO, CHM7 ####[facility] (DEFAULT)[address] [place] [address] AST [Catalytic activity/Vol] 31 U/L Normal 10-39 [facility] Comment on above: Performed By: #### H FP, MGO, CHM7 ####[facility] (DEFAULT)[address] [place] [address] Bilirubin [Mass/Vol] 1.0 mg/dL Normal <1.5 [facility] Comment on above: Performed By: #### H DOMENICA MONCADA CHM7 ####[facility] (DEFAULT)[address] [place] [address] Bilirubin.indirect [Mass/Vol] 0.3 mg/dL High <0.3 [facility] Comment on above: Performed By: #### H DOMENICA MONCADA CHM7 ####[facility] (DEFAULT)[address] [facility] [place] [address] Protein [Mass/Vol] 6.6 g/dL Normal 6.4-8.3 [facility] Comment on above: Performed By: #### H DOMENICA MONCADA CHM7 ####[facility] (DEFAULT)[address] [place] [address] Albumin [Mass/Vol] 3.2 g/dL Low 3.5 - 5.0 g/dL [facility] ALP [Catalytic activity/Vol] 107 U/L 32 - 126 U/L [facility] ALT [Catalytic activity/Vol] 20 U/L 10 - 52 U/L [facility] AST [Catalytic activity/Vol] 31 U/L 10 - 39 U/L [facility] Bilirubin [Mass/Vol] 1.0 mg/dL [facility] mg/dL [facility] Bilirubin.direct [Mass/Vol] 0.3 mg/dL High NINF - 0.3 mg/dL [facility] Protein [Mass/Vol] 6.6 g/dL 6.4 - 8.3 g/dL [facility] HISTOPLASMA ANTIGEN, FLUIDon 09-02-2023 FH SOURCE BAL RML Normal [facility] Comment on above: Performed By: #### Y FHST ####[facility] (DEFAULT)[address] [place] [address] Histo FLD interpretation Negative Normal [facility] Comment on above: Result Comment: ---- ADDITIONAL INFORMATION Reference interval: None DetectedReportable Range: Positive Results reported in ng/mL from0.20 ng/mL to 20.00 ng/mLPositive Results above 20.00 ng/mL are reported as 'Abovethe Limit of Quantification'Cross-reactions occur with Blastomyces spp., Coccidioidesspp., and Paracoccidioides brasiliensis.This test was developed and its performance characteristicsdetermined by [employer]. It has not beencleared or approved by the FDA; however, FDA clearance orapproval is not currently required for clinical use. Theresults are not intended to be used as the sole means forclinical diagnosis or patient management decisions.Test Performed by:[id number] [place] [address] Performed By: #### Y ST ####[facility] (DEFAULT)[address] [place] [id number] Histoplasma Antigen, FLUID Not detected Normal [facility] Comment on above: Performed By: #### Y ST ####[facility] (DEFAULT)[address] [place] [address] HISTOPLASMA ANTIGEN,URINEon 09-02-2023 H. capsulatum Ag (U) [Mass/Vol] Not detected ng/mL [facility] H. capsulatum Ag IA Ql (U) Not detected Not Detected [facility] HISTOPLASMA CAPSULATUM/BLAST OMYCES SPECIES,PCR FLUIDon 09-02-2023 HISTO/BLASTO RESULT Negative Normal Not Applicable [facility] Comment on above: Result Comment: A Ne gative result from BAL fluid does not rule out thepresence of Histoplasma capsulatum because the sensitivity from this source is suboptimal. ADDITIONAL INFORMATION This test was developed and its performance characteristicsdetermined by [facility] in a manner consistent with CLIArequirements. This test has not been cleared or approved bythe U.S. Food and Drug Administration.Test Performed by:[address] [address]Ija Director: Rosendo Bose M.D. Ph.D.; CLIA# [id number] Performed By: #### Y HBRP ####[facility] (DEFAULT)[address] [place] [address] Source BAL RML Normal [facility] Comment on above: Performed By: #### Y HBRP ####[facility] (DEFAULT)[address] [place] [address] HIV 1 AND 2 ANTIBODIES/P24 A NTIGENOrdered By: Wilma Luque on 09-02-2023 HIV 1+2 Ab+HIV1 p24 Ag IA Ql Non-Reactive Non Reactive [facility] Interpretation and review of laboratory results Normal [facility] HIV 1 AND 2 ANTIBODIES/P24 A NTIGENon 09-02-2023 HIV-1/HIV-2 Ab With p24 Antigen Non-Reactive Normal Non Reactive [facility] Comment on above: Performed By: #### L MREPHI53 ####[facility] (DEFAULT)[address] [place] [address] LEGIONELLA CULTUREon 023 Bacteria identified Cx Nom (Unsp spec) NO GROWTH DAY 7 OF 7 Normal [facility] Comment on above: Performed By: #### L EGN ####[facility] (DEFAULT)[address] [place] [address] Bacteria identified Cx Nom (Unsp spec) NO GROWTH DAY 7 OF 7 Normal [facility] Comment on above: Order Comment: BAL l egionella culture Performed By: #### L EGN ####[facility] (DEFAULT)[address] [place] [address] LEGIONELLA PCRon 09-02-2023 Legionella species, Culture BAL RML Normal [facility] Comment on above: Performed By: #### Y LEGRP ####U [facility] (DEFAULT)[address] [facility] [place] [address] Legionella, pcr result Negative Normal Not Applicable [facility] Comment on above: Result Comment: ---- ADDITIONAL INFORMATION This test was developed and its performance characteristicsdetermined by [facility] in a manner consistent with CLIArequirements. This test has not been cleared or approved bythe U.S. Food and Drug Administration.Test Performed by:[address] Director: Rosendo Bose M.D. Ph.D.; CLIA# [id number] Performed By: #### Y LEGRP ####[facility] (DEFAULT)[address] [place] [address] LOWER RESPIRATORY CULTURE, B ACTERIALon 09-02-2023 Bacteria identified Cx Nom (Unsp spec) NO GROWTH DAY 2 OF 2 Normal [facility] Comment on above: Performed By: #### R ES ####[facility] (DEFAULT)[address] [facility] [place] [address] Microscopic observation Gram stain Nom (Unsp spec) Normal [facility] Comment on above: Result Comment: Cyto centrifuge preparationNeutrophils, RareRed Blood Cells PresentNo organisms seen Performed By: #### R ES ####[facility] (DEFAULT)[address] [place] [address] Bacteria identified Cx Nom (Unsp spec) NO GROWTH DAY 2 OF 2 Normal [facility] Comment on above: Order Comment: BAL b acterial respiratory culture Performed By: #### R ES ####[facility] (DEFAULT)[address] [place] [address] Microscopic observation Gram stain Nom (Unsp spec) Normal [facility] Comment on above: Order Comment: BAL b acterial respiratory culture Result Comment: Cyto centrifuge preparationNeutrophils, ModerateRed Blood Cells PresentNo organisms seen Performed By: #### R ES ####[facility] (DEFAULT)[address] [place] [address] MAGNESIUMon 09-02-2023 Magnesium [Mass/Vol] 1.7 mg/dL Normal 1.6-2.6 [facility] Comment on above: Performed By: #### H FP, MGO, CHM7 ####[facility] (DEFAULT)[address] [place] [address] Interpretation and review of laboratory results Normal [facility] Magnesium [Mass/Vol] 1.7 mg/dL 1.6 - 2 .6 mg/dL [facility] No Panel Informationon 09-02 Interpretation and review of laboratory results Abnormal [facility] PNEUMOCYSTIS JIROVECI,PCRon 09-02-2023 PN Report Status DNR Normal [facility] Comment on above: Performed By: #### Y PNRP ####[facility] (DEFAULT)[address] [place] [address] PN Specimen Source BAL RML Normal [facility] Comment on above: Performed By: #### Y PNRP ####[facility] (DEFAULT)[address] [place] [address] Pneum jiroveci comment DNR Normal [facility] Comment on above: Performed By: #### Y PNRP ####[facility] (DEFAULT)[address] [place] [address], [place] [address] Pneumocystis jiroveci,PCR result Negative Normal Not Applicable [facility] Comment on above: Result Comment: ---- ADDITIONAL INFORMATION This test was developed and its performance characteristicsdetermined by [facility] in a manner consistent with CLIArequirements. This test has not been cleared or approved bythe U.S. Food and Drug Administration.Test Performed by:[facility], [place] [place], [place] [address]Lqm Director: Rosendo Bose M.D. Ph.D.; CLIA# [id number] Performed By: #### Y PNRP ####[facility] (DEFAULT)[address] [facility] [place] [address] PN Report Status DNR Normal [facility] Comment on above: Performed By: #### Y PNRP ####[facility] (DEFAULT)[address] [place] [address] PN Specimen Source BAL LLL Normal [facility] Comment on above: Performed By: #### Y PNRP ####[facility] (DEFAULT)[address] [place] [address] Pneum jiroveci comment DNR Normal [facility] Comment on above: Performed By: #### Y PNRP ####U [facility] (DEFAULT)[address] [place] [address] Pneumocystis jiroveci,PCR result Negative Normal Not Applicable [facility] Comment on above: Result Comment: ---- ADDITIONAL INFORMATION This test was developed and its performance characteristicsdetermined by [facility] in a manner consistent with CLIArequirements. This test has not been cleared or approved bythe U.S. Food and Drug Administration.Test Performed by:[address] [address]Bcl Director: Rosendo Bose M.D. Ph.D.; CLIA# [id number] Performed By: #### Y PNRP ####U [facility] (DEFAULT)[address] [place] [address] TACROLIMUS LEVEL, TROUGH (MT E DRUG LEVEL)on 09-02-2023 Interpretation and review of laboratory results Normal [facility] Tacrolimus (Bld) [Mass/Vol] 4.2 ng/mL [facility] Tacrolimus, Trough 4.2 ng/mL Normal [facility] ow Transplant: 4.0-12.0, Therapeutic: 5.0-15.0 [facility] Comment on above: Order Comment: Dilan gregory draw at specified interval PRIOR to dose. Do not hold dose to wait for level. Specimens batched twice per day, (M-F) and once per day weekendsMethod performed is a chemiluminescent microparticle immunoasssay on the [employer] Cat[employer] Operator i2000.The range is based on experience at [facility] and users should be aware that target concentrations vary widely depending on concomitant therapy, time post-transplant, and desired degree of immunosuppression. Performed By: #### T ACRO ####[facility] (DEFAULT)[address] [place] [address] CBC,PLATELETSon 09-01-2023 Hematocrit (Bld) [Volume fraction] 38.9 % Low 39.6-48.8 [facility] Comment on above: Performed By: #### H EMO ####[facility] (DEFAULT)[address] [place] [address] Hemoglobin (Bld) [Mass/Vol] 12.7 g/dL Low 13.4-16.8 [facility] Comment on above: Performed By: #### H EMOGC ####[facility] (DEFAULT)[address] [place] [address] MCV (RBC) [Entitic vol] 84.6 fL Normal 79.0-94.5 [facility] Comment on above: Performed By: #### H EMOGC ####[facility] (DEFAULT)[address] [place] [address] Mean Cell Hgb 27.6 pg Normal 26.1-33.3 [facility] Comment on above: Performed By: #### H EMOGC ####[facility] (DEFAULT)[address] [place] [address] Mean Cell Hgb Conc 32.6 g/dL Normal 31.9-36.5 [facility] Comment on above: Performed By: #### H EMOGC ####[facility] (DEFAULT)[address] [place] [address] Platelet mean volume (Bld) [Entitic vol] 9.4 fL Normal 8.7-12.3 [facility] Comment on above: Performed By: #### H EMOGC ####[facility] (DEFAULT)[address] [place] [address] Platelets (Bld) [#/Vol] 209 10*3/uL Normal 146-337 [facility] Comment on above: Performed By: #### H EMO ####[facility] (DEFAULT)[address] [place] [address] RBC (Bld) [#/Vol] 4.60 10*6/uL Normal 4.38-5.83 [facility] Comment on above: Performed By: #### H EMOGC ####[facility] (DEFAULT)[address] [place] [address] RBC Distribution 13.4 % Normal 10.9-14.3 [facility] Comment on above: Performed By: #### H EMOGC ####[facility] (DEFAULT)[address] [place] [address] WBC (Bld) [#/Vol] 4.41 10*3/uL Normal 3.73-10.10 [facility] Comment on above: Performed By: #### H EMOGC ####[facility] (DEFAULT)[address] [place] [address] Erythrocyte distribution width (RBC) [Ratio] 13.4 % 10.9 - 14.3 % [facility] Hematocrit (Bld) [Volume fraction] 38.9 % Low 39.6 - 48.8 % [facility] Hemoglobin (Bld) [Mass/Vol] 12.7 g/dL Low 13.4 - 16.8 g/dL [facility] Interpretation and review of laboratory results Abnormal [facility] MCH (RBC) [Entitic mass] 27.6 pg 26.1 - 33.3 pg [facility] MCHC (RBC) [Mass/Vol] 32.6 g/dL 31.9 - 36.5 g/dL [facility] MCV (RBC) [Entitic vol] 84.6 fL 79.0 - 94.5 fL [facility] Platelet mean volume (Bld) [Entitic vol] 9.4 fL 8.7 - 12.3 fL [facility] Platelets (Bld) [#/Vol] 209 10*3/uL 146 - 337 K/uL [facility] RBC (Bld) [#/Vol] 4.60 10*6/uL [facility] WBC (Bld) [#/Vol] 4.41 10*3/uL 3.73 - 10. 10 K/uL [facility] CHEM 7 (LYTES,BUN,CREA,GLUC) on 09-01-2023 Anion gap [Moles/Vol] 14 mmol/L Normal 7-17 [facility] Comment on above: Performed By: #### H DOMENICA MONCADA CHM7 ####[facility] (DEFAULT)[address] [place] [address] Chloride [Moles/Vol] 103 mmol/L Normal 98-108 [facility] Comment on above: Performed By: #### H DOMENICA MONCADA CHM7 ####[facility] (DEFAULT)[address] [facility] [place] [address] CO2 [Moles/Vol] 21 mmol/L Normal 21-31 [facility] Comment on above: Performed By: #### H ANTWAN MGRogelio CHM7 ####[facility] (DEFAULT)[address] [place] [address] Creatinine [Mass/Vol] 1.16 mg/dL Normal 0.70-1.30 [facility] Comment on above: Performed By: #### H DOMENICA MONCADA CHM7 ####[facility] (DEFAULT)[address] [place] [address] GFR/1.73 sq M.predicted among non-blacks MDRD (S/P/Bld) [Vol rate/Area] 76 mL/min/{1.73_m2} Normal >=60 [facility] Comment on above: Result Comment: Repo rted eGFR is based on the CKD-EPI 2020 equation using creatinine, age, and sex. Performed By: #### H ANTWAN MGOHELENM7 ####[facility] (DEFAULT)[address] [place] [address] Glucose [Mass/Vol] 117 mg/dL High 70-99 [facility] Comment on above: Performed By: #### H ANTWAN MGO CHM7 ####[facility] (DEFAULT)[address] [place] [address] Osmolality [Osmolality] 285 mosm/kg Normal 278-305 [facility] Comment on above: Performed By: #### H ANTWAN MGO CHM7 ####[facility] (DEFAULT)[address] [place] [address] Potassium [Moles/Vol] 4.2 mmol/L Normal 3.5-5.0 [facility] Comment on above: Performed By: #### H ANTWAN MGO CHM7 ####[facility] (DEFAULT)[address] [place] [address] Sodium [Moles/Vol] 134 mmol/L Low 135-145 [facility] Comment on above: Performed By: #### H ANTWAN MGO CHM7 ####[facility] (DEFAULT)[address] [place] [address] Urea nitrogen [Mass/Vol] 18 mg/dL Normal 7-25 [facility] Comment on above: Performed By: #### H ANTWAN MGO CHM7 ####[facility] (DEFAULT)[address] [place] [address] Urea nitrogen/Creatinine [Mass ratio] 16 mg/mg Normal [facility] Comment on above: Performed By: #### H FP, MGO, CHM7 ####[facility] (DEFAULT)[address] [place] [address] Anion gap [Moles/Vol] 14 mmol/L 7 - 17 mmol/L [facility] Chloride [Moles/Vol] 103 mmol/L 98 - 10 8 mmol/L [facility] CO2 [Moles/Vol] 21 mmol/L 21 - 31 mmol/L [facility] Creatinine [Mass/Vol] 1.16 mg/dL 0.70 - 1.30 mg/dL [facility] eGFR, CKD-EPI, Male 76 - PINF [facility] Glucose [Mass/Vol] 117 mg/dL High 70 - 99 mg/dL [facility] Osmolality Calc [Osmolality] 285 [facility] Potassium [Moles/Vol] 4.2 mmol/L 3.5 - 5.0 mmol/L [facility] Sodium [Moles/Vol] 134 mmol/L Low 135 - 145 mmol/L [facility] Urea nitrogen [Mass/Vol] 18 mg/dL 7 - 25 mg/dL [facility] Urea nitrogen/Creatinine [Mass ratio] 16 mg/mg [facility] CRYPTOCOCCAL ANTIGENon 09-01 Cryptococcus Antigen,Serum Negative Normal Negative [facility] Comment on above: Performed By: #### C RAG ####[facility] (DEFAULT)[address] [place] [address] Cryptococcus sp Ag Ql (S) Negative Negative [facility] Interpretation and review of laboratory results Normal [facility] HEPATIC FUNCTION PANELon Albumin [Mass/Vol] 3.3 g/dL Low 3.5-5.0 [facility] Comment on above: Performed By: #### H FP, MGO, CHM7 ####[facility] (DEFAULT)[address] [place] [address] ALP [Catalytic activity/Vol] 112 U/L Normal 32-126 [facility] Comment on above: Performed By: #### H FP, MGO, CHM7 ####[facility] (DEFAULT)[address] [place] [address] ALT [Catalytic activity/Vol] 21 U/L Normal 10-52 [facility] Comment on above: Performed By: #### H FP, MGO, CHM7 ####[facility] (DEFAULT)[address] [place] [address] AST [Catalytic activity/Vol] 29 U/L Normal 10-39 [facility] Comment on above: Performed By: #### H FP, MGO, CHM7 ####[facility] (DEFAULT)[address] [place] [address] Bilirubin [Mass/Vol] 1.0 mg/dL Normal <1.5 [facility] Comment on above: Performed By: #### H FP, MGO, CHM7 ####[facility] (DEFAULT)[address] [place] [address] Bilirubin.indirect [Mass/Vol] 0.2 mg/dL Normal <0.3 [facility] Comment on above: Performed By: #### H FP, MGO, CHM7 ####[facility] (DEFAULT)[address] [place] [address] Protein [Mass/Vol] 6.8 g/dL Normal 6.4-8.3 [facility] Comment on above: Performed By: #### H FP, MGO, CHM7 ####[facility] (DEFAULT)[address] [place] [address] Albumin [Mass/Vol] 3.3 g/dL Low 3.5 - 5.0 g/dL [facility] ALP [Catalytic activity/Vol] 112 U/L 32 - 126 U/L [facility] ALT [Catalytic activity/Vol] 21 U/L 10 - 52 U/L [facility] AST [Catalytic activity/Vol] 29 U/L 10 - 39 U/L [facility] Bilirubin [Mass/Vol] 1.0 mg/dL NINF - 1.5 mg/dL [facility] Bilirubin.direct [Mass/Vol] 0.2 mg/dL NINF - 0.3 mg/dL [facility] Protein [Mass/Vol] 6.8 g/dL 6.4 - 8.3 g/dL [facility] L. pneumophila 1 Ag IA Ql (U )Ordered By: Carolin Miles on 09-01-2023 Interpretation and review of laboratory results Normal [facility] LEGIONELLA URINARY AGOrdered By: Carolin Miles on 09-01-2023 L. pneumophila 1 Ag IA Ql (U) Negative Negative [facility] MAGNESIUMon 09-01-2023 Magnesium [Mass/Vol] 1.6 mg/dL Normal 1.6-2.6 [facility] Comment on above: Performed By: #### H ANTWAN, MGO, CHM7 ####[facility] (DEFAULT)[address] [place] [address] Interpretation and review of laboratory results Normal [facility] Magnesium [Mass/Vol] 1.6 mg/dL 1.6 - 2 .6 mg/dL [facility] No Panel Informationon 09-01 Interpretation and review of laboratory results Abnormal [facility] PARVOVIRUS (B19) DNA, PCR, B LOODon 09-01-2023 PARVOVIRUS B19 BY RAPID PCR Not detected Normal Not Detected [facility] Comment on above: Result Comment: The primers/probe used in this assay will detectparvovirus B19 and V9 (genotypes 1 # 3) but maynot detect parvovirus genotype 2. The majority ofcirculating Parvovirus B19 strains in the [facility] are genotype 1. Genotype 2 is not believed tocirculate widely in the [facility], but has beenassociated with similar clinical features as genotype1. Genotype 3 is most prevalent in some [facility].This test was developed and its analyticalperformance characteristics have been determinedby [facility] [place], [place].It has not been cleared or approved by the FDA. Thisassay has been validated pursuant to the CLIAregulations and is used for clinical purposes.Test Performed at:[facility] [place] [id number] Benavides M.D., Ph.D.,Director of Laboratories Performed By: #### Y PRVP ####[facility] (DEFAULT)[address] [address] MT SPEC SOURCE Whole Blood Normal [facility] Comment on above: Performed By: #### Y PRVP ####[facility] (DEFAULT)[address] [address] ASPERGILLUS (GALACTOMANNAN), ANTIGENon 08-31-2023 Aspergillus Antigen <0.500 Normal <0.5 [facility] Comment on above: Result Comment: ---- ADDITIONAL INFORMATION This is a qualitative test and the resulted index value isnot indicative of disease severity. Serial testing isrecommended for patients at high risk for invasiveaspergillosis.This assay was performed using the FDA-cleared Bio-Tasted MenuPlatelia Aspergillus Galactomannan EIA.Test Performed by:[facility] [place], [place] [address]Nju Director: Rosendo Bose M.D. Ph.D.; CLIA# [id number] Performed By: #### Y ASPR ####[facility] (DEFAULT)[address] [address] CBC,PLATELETSon 08-31-2023 Hematocrit (Bld) [Volume fraction] 39.4 % Low 39.6-48.8 [facility] Comment on above: Performed By: #### H EMOGC ####[facility] (DEFAULT)[address] [place] [address] Hemoglobin (Bld) [Mass/Vol] 12.8 g/dL Low 13.4-16.8 [facility] Comment on above: Performed By: #### H EMOGC ####[facility] (DEFAULT)[address] [place] [address] MCV (RBC) [Entitic vol] 85.1 fL Normal 79.0-94.5 [facility] Comment on above: Performed By: #### H EMOGC ####[facility] (DEFAULT)[address] [place] [address] Mean Cell Hgb 27.6 pg Normal 26.1-33.3 [facility] Comment on above: Performed By: #### H EMOGC ####[facility] (DEFAULT)[address] [place] [address] Mean Cell Hgb Conc 32.5 g/dL Normal 31.9-36.5 [facility] Comment on above: Performed By: #### H EMOGC ####[facility] (DEFAULT)[address] [place] [address] Platelet mean volume (Bld) [Entitic vol] 9.6 fL Normal 8.7-12.3 [facility] Comment on above: Performed By: #### H EMOGC ####[facility] (DEFAULT)[address] [place] [address] Platelets (Bld) [#/Vol] 228 10*3/uL Normal 146-337 [facility] Comment on above: Performed By: #### H EMOGC ####[facility] (DEFAULT)[address] [place] [address] RBC (Bld) [#/Vol] 4.63 10*6/uL Normal 4.38-5.83 [facility] Comment on above: Performed By: #### H [facility] ####[facility] (DEFAULT)[address] [facility] [place] [address] RBC Distribution 13.3 % Normal 10.9-14.3 [facility] Comment on above: Performed By: #### H [facility] ####[facility] (DEFAULT)[address] [place] [address] WBC (Bld) [#/Vol] 4.77 10*3/uL Normal 3.73-10.10 [facility] [facility] Comment on above: Performed By: #### [facility] [place] ####[facility] (DEFAULT)[address] [place] [address] Erythrocyte distribution width (RBC) [Ratio] 13.3 % 10.9 - 14.3 % [facility] Hematocrit (Bld) [Volume fraction] 39.4 % Low 39.6 - 48.8 % [facility] Hemoglobin (Bld) [Mass/Vol] 12.8 g/dL Low 13.4 - 16.8 g/dL [facility] Interpretation and review of laboratory results Abnormal [facility] MCH (RBC) [Entitic mass] 27.6 pg 26.1 - 33.3 pg [facility] MCHC (RBC) [Mass/Vol] 32.5 g/dL 31.9 - 36.5 g/dL [facility] MCV (RBC) [Entitic vol] 85.1 fL 79.0 - 94.5 fL [facility] Platelet mean volume (Bld) [Entitic vol] 9.6 fL 8.7 - 12.3 fL [facility] Platelets (Bld) [#/Vol] 228 10*3/uL 146 - 337 K/uL [facility] RBC (Bld) [#/Vol] 4.63 10*6/uL [facility] WBC (Bld) [#/Vol] 4.77 10*3/uL 3.73 - 10. 10 K/uL [facility] CHEM 7 (LYTES,BUN,CREA,GLUC) on 08-31-2023 Anion gap [Moles/Vol] 13 mmol/L Normal 7-17 [facility] Comment on above: Performed By: #### M GO, HFP, CHM7, FERIB, PROCAL ####U [facility] (DEFAULT)[address] [place] [address] Chloride [Moles/Vol] 102 mmol/L Normal 98-108 [facility] Comment on above: Performed By: #### M GO, HFP, CHM7, FERIB, PROCAL ####[facility] (DEFAULT)[address] [place] [address] CO2 [Moles/Vol] 23 mmol/L Normal 21-31 [facility] Comment on above: Performed By: #### M GO, HFP, CHM7, FERIB, PROCAL ####[facility] (DEFAULT)[address] [place] [address] Creatinine [Mass/Vol] 1.37 mg/dL High 0.70-1.30 [facility] Comment on above: Performed By: #### M GO, HFP, CHM7, FERIB, PROCAL ####U [facility] (DEFAULT)[address] [place] [address] GFR/1.73 sq M.predicted among non-blacks MDRD (S/P/Bld) [Vol rate/Area] 62 mL/min/{1.73_m2} Normal >=60 [facility] Comment on above: Result Comment: Repo rted eGFR is based on the CKD-EPI 2020 equation using creatinine, age, and sex. Performed By: #### M GO, HFP, CHM7, FERIB, PROCAL ####U [facility] (DEFAULT)[address] [place] [address] Glucose [Mass/Vol] 112 mg/dL High 70-99 [facility] Comment on above: Performed By: #### M GO, HFP, CHM7, FERIB, PROCAL ####[facility] (DEFAULT)[address] [place] [address] Osmolality [Osmolality] 284 mosm/kg Normal 278-305 [facility] Comment on above: Performed By: #### M MERLE, HFP, CHM7, FERIB, PROCAL ####[facility] (DEFAULT)[address] [place] [address] Potassium [Moles/Vol] 4.4 mmol/L Normal 3.5-5.0 [facility] Comment on above: Performed By: #### M MERLE, HFP, CHM7, FERIB, PROCAL ####[facility] (DEFAULT)[address] [place] [address] Sodium [Moles/Vol] 134 mmol/L Low 135-145 [facility] Comment on above: Performed By: #### Rod BLOOM, HFP, CHM7, FERIB, PROCAL ####[facility] (DEFAULT)[address] [place] [address] Urea nitrogen [Mass/Vol] 16 mg/dL Normal 7-25 [facility] Comment on above: Performed By: #### M MERLE, HFP, CHM7, FERIB, PROCAL ####[facility] (DEFAULT)[address] [place] [address] Urea nitrogen/Creatinine [Mass ratio] 12 mg/mg Normal [facility] Comment on above: Performed By: #### M MERLE, HFP, CHM7, FERIB, PROCAL ####[facility] (DEFAULT)[address] [place] [address] Anion gap [Moles/Vol] 13 mmol/L 7 - 17 mmol/L [facility] Chloride [Moles/Vol] 102 mmol/L 98 - 10 8 mmol/L [facility] CO2 [Moles/Vol] 23 mmol/L 21 - 31 mmol/L [facility] Creatinine [Mass/Vol] 1.37 mg/dL High 0.70 - 1.30 mg/dL [facility] eGFR, CKD-EPI, [facility] 62 [facility] Glucose [Mass/Vol] 112 mg/dL High 70 - 99 mg/dL [facility] Osmolality Calc [Osmolality] 284 [facility] Potassium [Moles/Vol] 4.4 mmol/L 3.5 - 5.0 mmol/L [facility] Sodium [Moles/Vol] 134 mmol/L Low 135 - 145 mmol/L [facility] Urea nitrogen [Mass/Vol] 16 mg/dL 7 - 25 mg/dL [facility] Urea nitrogen/Creatinine [Mass ratio] 12 mg/mg [facility] CT ABDOMEN/PELVIS WITHOUT CO NTRASTon 08-31-2023 CT ABDOMEN/PELVIS WITHOUT CONTRAST Normal [facility] CT Abdomen and Pelvis WO con traston 08-31-2023 RADIOLOGY RADIOLOGY [facility] Radiology Study observation (narrative) [facility] CT Abdomen and Pelvis WO con trastOrdered By: Chavez Larkin on 08-31-2023 [facility] Work Phone: CT CHEST WITHOUT CONTRASTon 08-31-2023 CT CHEST WITHOUT CONTRAST Normal [facility] CT Chest WO contraston 08-31 RADIOLOGY RADIOLOGY [facility] Radiology Study observation (narrative) [facility] CT Chest WO contrastOrdered By: Daisha Patterson on 08-31-2023 [facility] Work Phone: FERRITINon 08-31-2023 Ferritin [Mass/Vol] 409.0 ng/mL High 10.5 - 3 07.3 ng/mL [facility] Interpretation and review of laboratory results Abnormal [facility] Ferritin [Mass/Vol] 409.0 ng/mL High 10.5-307.3 [facility] Comment on above: Performed By: #### M GO, HFP, CHM7, FERIB, PROCAL ####[facility] (DEFAULT)[address] [place] [address] HEPATIC FUNCTION PANELon Albumin [Mass/Vol] 3.3 g/dL Low 3.5-5.0 [facility] Comment on above: Performed By: #### M GO, HFP, CHM7, FERIB, PROCAL ####U [facility] (DEFAULT)[address] [place] [address] ALP [Catalytic activity/Vol] 113 U/L Normal 32-126 [facility] Comment on above: Performed By: #### M GO, HFP, CHM7, FERIB, PROCAL ####[facility] (DEFAULT)[address] [place] [address] ALT [Catalytic activity/Vol] 25 U/L Normal 10-52 [facility] Comment on above: Performed By: #### M GO, HFP, CHM7, FERIB, PROCAL ####[facility] (DEFAULT)[address] [place] [address] AST [Catalytic activity/Vol] 31 U/L Normal 10-39 [facility] Comment on above: Performed By: #### M GO, HFP, CHM7, FERIB, PROCAL ####[facility] (DEFAULT)[address] [place] [address] Bilirubin [Mass/Vol] 1.1 mg/dL Normal <1.5 [facility] Comment on above: Performed By: #### M GO, HFP, CHM7, FERIB, PROCAL ####[facility] (DEFAULT)[address] [place] [address] Bilirubin.indirect [Mass/Vol] 0.3 mg/dL High <0.3 [facility] Comment on above: Performed By: #### M GO, HFP, CHM7, FERIB, PROCAL ####[facility] (DEFAULT)[address] [place] [address] Protein [Mass/Vol] 7.0 g/dL Normal 6.4-8.3 [facility] Comment on above: Performed By: #### M TAVO BLOOM, CHMJessica, CATINA, PROCAL ####[facility] (DEFAULT)[address] [place] [address] Albumin [Mass/Vol] 3.3 g/dL Low 3.5 - 5.0 g/dL [facility] ALP [Catalytic activity/Vol] 113 U/L 32 - 126 U/[facility] ALT [Catalytic activity/Vol] 25 U/L 10 - 52 U/[facility] AST [Catalytic activity/Vol] 31 U/L 10 - 39 U/L [facility] Bilirubin [Mass/Vol] 1.1 mg/dL NINF - 1.5 mg/dL [facility] Bilirubin.direct [Mass/Vol] 0.3 mg/dL High NINF - 0.3 mg/dL [facility] Protein [Mass/Vol] 7.0 g/dL 6.4 - 8.3 g/dL [facility] LEGIONELLA URINARY AGon 10-0 Legionella Urinary Antigen Negative Normal Negative [facility] Comment on above: Performed By: #### L EGION ####[facility] (DEFAULT)[address] [place] [address] MAGNESIUMon 08-31-2023 Magnesium [Mass/Vol] 1.7 mg/dL Normal 1.6-2.6 [facility] Comment on above: Performed By: #### M TAVO BLOOM, CHM7, CATINA, PROCAL ####[facility] (DEFAULT)[address] [place] [address] Interpretation and review of laboratory results Normal [facility] Magnesium [Mass/Vol] 1.7 mg/dL 1.6 - 2 .6 mg/dL [facility] No Panel Informationon 08-31 Interpretation and review of laboratory results Abnormal [facility] PROCALCITONINon 08-31-2023 Interpretation and review of laboratory results Normal [facility] Procalcitonin [Mass/Vol] 0.23 ng/mL NINF - 0.50 ng/mL [facility] Procalcitonin 0.23 ng/mL Normal <0.50 [facility] Comment on above: Result Comment: Proc alcitonin [...] and trend procalcitonin in various clinical settings. [email or web address] common cutoffs associated with bacterial infections are as follows.Respiratory tract infections: >0.25 ng/mLSepsis/septic shock: >0.5 ng/mLProcalcitonin should not be used alone as a diagnostic tool, however. All procalcitonin results should be interpreted in association with the patients clinical condition and all laboratory findings. Performed By: #### M GO, [facility], CHM7, CATINA, ANG ####[facility] (DEFAULT)[address] [place] [address] TACROLIMUS LEVEL, TROUGH (MT E DRUG LEVEL)Ordered By: Yanira Marcum on 08-31-2023 Interpretation and review of laboratory results Normal [facility] Tacrolimus (Bld) [Mass/Vol] 5.9 ng/mL [facility] TACROLIMUS LEVEL, TROUGH (MT E DRUG LEVEL)on 08-31-2023 Tacrolimus, Trough 5.9 ng/mL Normal [facility] Susana ow Transplant: 4.0-12.0, Therapeutic: 5.0-15.0 [facility] Comment on above: Order Comment: Pleas e draw at specified interval PRIOR to dose. Do not hold dose to wait for level. Specimens batched twice per day, (M-F) and once per day weekendsMethod performed is a chemiluminescent microparticle immunoasssay on the [employer] i2000.The range is based on experience at [facility] and users should be aware that target concentrations vary widely depending on concomitant therapy, time post-transplant, and desired degree of immunosuppression. Performed By: #### T ACRO ####[facility] (DEFAULT)[address] [place] [address] URINE CULTUREOrdered By: Jorge crowe Held on 08-31-2023 Bacteria identified Cx Nom (Unsp spec) No Growth [facility] DARYL AURIS SCREEN BY PCRO rdered By: Mynor Alejandro on 08-30-2023 Daryl auris Screen by PCR Not detected Not Detected [facility] Interpretation and review of laboratory results Normal [facility] CBC,PLATELETSon 08-30-2023 Hematocrit (Bld) [Volume fraction] 41.3 % Normal 39.6-48.8 [facility] Comment on above: Performed By: #### H EMOGC ####[facility] (DEFAULT)[address] [place] [address] Hemoglobin (Bld) [Mass/Vol] 13.2 g/dL Low 13.4-16.8 [facility] Comment on above: Performed By: #### H EMOGC ####[facility] (DEFAULT)[address] [place] [address] MCV (RBC) [Entitic vol] 85.5 fL Normal 79.0-94.5 [facility] Comment on above: Performed By: #### H EMOGC ####[facility] (DEFAULT)[address] [place] [address] Mean Cell Hgb 27.3 pg Normal 26.1-33.3 [facility] Comment on above: Performed By: #### H EMOGC ####[facility] (DEFAULT)[address] [facility] [place] [address] Mean Cell Hgb Conc 32.0 g/dL Normal 31.9-36.5 [facility] Comment on above: Performed By: #### H EMOGC ####[facility] (DEFAULT)[address] [place] [address] Platelet mean volume (Bld) [Entitic vol] 9.2 fL Normal 8.7-12.3 [facility] Comment on above: Performed By: #### H EMOGC ####[facility] (DEFAULT)[address] [facility] [place] [address] Platelets (Bld) [#/Vol] 235 10*3/uL Normal 146-337 [facility] Comment on above: Performed By: #### H EMO ####[facility] (DEFAULT)[address] [place] [address] RBC (Bld) [#/Vol] 4.83 10*6/uL Normal 4.38-5.83 [facility] Comment on above: Performed By: #### H EMO ####[facility] (DEFAULT)[address] [place] [address] RBC Distribution 13.3 % Normal 10.9-14.3 [facility] Comment on above: Performed By: #### H EMOGC ####[facility] (DEFAULT)[address] [place] [address] WBC (Bld) [#/Vol] 4.96 10*3/uL Normal 3.73-10.10 [facility] Comment on above: Performed By: #### H EMOGC ####[facility] (DEFAULT)[address] [place] [address] Erythrocyte distribution width (RBC) [Ratio] 13.3 % 10.9 - 14.3 % [facility] Hematocrit (Bld) [Volume fraction] 41.3 % 39.6 - 48.8 % [facility] Hemoglobin (Bld) [Mass/Vol] 13.2 g/dL Low 13.4 - 16.8 g/dL [facility] Interpretation and review of laboratory results Abnormal [facility] MCH (RBC) [Entitic mass] 27.3 pg 26.1 - 33.3 pg [facility] MCHC (RBC) [Mass/Vol] 32.0 g/dL 31.9 - 36.5 g/dL [facility] MCV (RBC) [Entitic vol] 85.5 fL 79.0 - 94.5 fL [facility] Platelet mean volume (Bld) [Entitic vol] 9.2 fL 8.7 - 12.3 fL [facility] Platelets (Bld) [#/Vol] 235 10*3/uL 146 - 337 K/uL [facility] RBC (Bld) [#/Vol] 4.83 10*6/uL [facility] WBC (Bld) [#/Vol] 4.96 10*3/uL 3.73 - 10. 10 K/uL [facility] CHEM 7 (LYTES,BUN,CREA,GLUC) on 08-30-2023 Anion gap [Moles/Vol] 14 mmol/L Normal 7-17 [facility] Comment on above: Performed By: #### TJ RAMÍREZ7, HFP ####[facility] (DEFAULT)[address] [place] [address] Chloride [Moles/Vol] 102 mmol/L Normal 98-108 [facility] Comment on above: Performed By: #### Rod BLOOM CHM7, HFP ####[facility] (DEFAULT)[address] [place] [address] CO2 [Moles/Vol] 20 mmol/L Low 21-31 [facility] Comment on above: Performed By: #### Rod BLOOM CHM7, HFP ####[facility] (DEFAULT)[address] [place] [address] Creatinine [Mass/Vol] 1.56 mg/dL High 0.70-1.30 [facility] Comment on above: Performed By: #### NATHANIEL RAMÍREZ, HFP ####[facility] (DEFAULT)[address] [place] [address] GFR/1.73 sq M.predicted among non-blacks MDRD (S/P/Bld) [Vol rate/Area] 53 mL/min/{1.73_m2} Low >=60 [facility] Comment on above: Result Comment: Repo rted eGFR is based on the CKD-EPI 2020 equation using creatinine, age, and sex. Performed By: #### NATHANIEL RAMÍREZ, HFP ####[facility] (DEFAULT)[address] [place] [address] Glucose [Mass/Vol] 123 mg/dL High 70-99 [facility] Comment on above: Performed By: #### NATHANIEL RAMÍREZ, HFP ####[facility] (DEFAULT)[address] [place] [address] Osmolality [Osmolality] 281 mosm/kg Normal 278-305 [facility] Comment on above: Performed By: #### NATHANIEL RAMÍREZ, HFP ####[facility] (DEFAULT)[address] [place] [address] Potassium [Moles/Vol] 4.3 mmol/L Normal 3.5-5.0 [facility] Comment on above: Performed By: #### NATHANIEL RAMÍREZ, HFP ####[facility] (DEFAULT)[address] [place] [address] Sodium [Moles/Vol] 132 mmol/L Low 135-145 [facility] Comment on above: Performed By: #### NATHANIEL RAMÍREZ, HFP ####[facility] (DEFAULT)[address] [place] [address] Urea nitrogen [Mass/Vol] 16 mg/dL Normal 7-25 [facility] Comment on above: Performed By: #### M NATHANIEL BLOOM, HFP ####U [facility] (DEFAULT)[address] [place] [address] Urea nitrogen/Creatinine [Mass ratio] 10 mg/mg Normal [facility] Comment on above: Performed By: #### M NATHANIEL BLOOM, HFP ####U [facility] (DEFAULT)[address] [place] [address] Anion gap [Moles/Vol] 14 mmol/L 7 - 17 mmol/L [facility] Chloride [Moles/Vol] 102 mmol/L 98 - 10 8 mmol/L [facility] CO2 [Moles/Vol] 20 mmol/L Low 21 - 31 mmol/L [facility] Creatinine [Mass/Vol] 1.56 mg/dL High 0.70 - 1.30 mg/dL [facility] eGFR, CKD-EPI, Male 53 Low - [facility]F [facility] Glucose [Mass/Vol] 123 mg/dL High 70 - 99 mg/dL [facility] Osmolality Calc [Osmolality] 281 [facility] Potassium [Moles/Vol] 4.3 mmol/L 3.5 - 5.0 mmol/L [facility] Sodium [Moles/Vol] 132 mmol/L Low 135 - 145 mmol/L [facility] Urea nitrogen [Mass/Vol] 16 mg/dL 7 - 25 mg/dL [facility] Urea nitrogen/Creatinine [Mass ratio] 10 mg/mg [facility] EXTRA MICROon 08-30-2023 [facility] HEPATIC FUNCTION PANELon Albumin [Mass/Vol] 3.7 g/dL Normal 3.5-5.0 [facility] Comment on above: Performed By: #### M NATHANIEL BLOOM, HFP ####U [facility] (DEFAULT)[address] [place] [address] ALP [Catalytic activity/Vol] 115 U/L Normal 32-126 [facility] Comment on above: Performed By: #### M MERLE CHM7, HFP ####[facility] (DEFAULT)[address] [place] [address] ALT [Catalytic activity/Vol] 22 U/L Normal 10-52 [facility] Comment on above: Performed By: #### M MERLE CHM7, HFP ####[facility] (DEFAULT)[address] [place] [address] AST [Catalytic activity/Vol] 34 U/L Normal 10-39 [facility] Comment on above: Performed By: #### M MERLE CHM7, HFP ####[facility] (DEFAULT)[address] [place] [address] Bilirubin [Mass/Vol] 1.2 mg/dL Normal <1.5 [facility] Comment on above: Performed By: #### Rod BLOOM CHM7, HFP ####[facility] (DEFAULT)[address] [place] [address] Bilirubin.indirect [Mass/Vol] 0.3 mg/dL High <0.3 [facility] Comment on above: Performed By: #### M HELEN BLOOMM7, HFP ####[facility] (DEFAULT)[address] [place] [address] Protein [Mass/Vol] 7.7 g/dL Normal 6.4-8.3 [facility] Comment on above: Performed By: #### M MERLE CHM7, HFP ####[facility] (DEFAULT)[address] [place] [address] Albumin [Mass/Vol] 3.7 g/dL 3.5 - 5.0 g/dL [facility] ALP [Catalytic activity/Vol] 115 U/L 32 - 126 U/L [facility] ALT [Catalytic activity/Vol] 22 U/L 10 - 52 U/L [facility] AST [Catalytic activity/Vol] 34 U/L 10 - 39 U/L [facility] Bilirubin [Mass/Vol] 1.2 mg/dL NINF - 1.5 mg/dL [facility] Bilirubin.direct [Mass/Vol] 0.3 mg/dL High NINF - 0.3 mg/dL [facility] Protein [Mass/Vol] 7.7 g/dL 6.4 - 8.3 g/dL [facility] MAGNESIUMon 08-30-2023 Magnesium [Mass/Vol] 1.8 mg/dL Normal 1.6-2.6 [facility] Comment on above: Performed By: #### M GO, CHM7, [facility] ####[facility] (DEFAULT)[address] [place] [address] Interpretation and review of laboratory results Normal [facility] Magnesium [Mass/Vol] 1.8 mg/dL 1.6 - 2 .6 mg/dL [facility] No Panel Informationon 08-30 Interpretation and review of laboratory results Abnormal [facility] CBC,PLATELETSon 08-29-2023 Hematocrit (Bld) [Volume fraction] 37.6 % Low 39.6-48.8 [facility] Comment on above: Performed By: #### H [facility] ####[facility] (DEFAULT)[address] [place] [address] Hemoglobin (Bld) [Mass/Vol] 12.2 g/dL Low 13.4-16.8 [facility] Comment on above: Performed By: #### H EMO ####[facility] (DEFAULT)[address] [place] [address] MCV (RBC) [Entitic vol] 85.1 fL Normal 79.0-94.5 [facility] Comment on above: Performed By: #### H EMOGC ####[facility] (DEFAULT)[address] [place] [address] Mean Cell Hgb 27.6 pg Normal 26.1-33.3 [facility] Comment on above: Performed By: #### H EMO ####[facility] (DEFAULT)[address] [facility] [place] [address] Mean Cell Hgb Conc 32.4 g/dL Normal 31.9-36.5 [facility] Comment on above: Performed By: #### H EMOGC ####[facility] (DEFAULT)[address] [facility] [place] [address] Platelet mean volume (Bld) [Entitic vol] 9.4 fL Normal 8.7-12.3 [facility] Comment on above: Performed By: #### H EMOGC ####[facility] (DEFAULT)[address] [place] [address] Platelets (Bld) [#/Vol] 233 10*3/uL Normal 146-337 [facility] Comment on above: Performed By: #### H EMOGC ####[facility] (DEFAULT)[address] [facility] [place] [address] RBC (Bld) [#/Vol] 4.42 10*6/uL Normal 4.38-5.83 [facility] Comment on above: Performed By: #### H EMOGC ####[facility] (DEFAULT)[address] [place] [address] RBC Distribution 13.4 % Normal 10.9-14.3 [facility] Comment on above: Performed By: #### H EMOGC ####[facility] (DEFAULT)[address] [place] [address] WBC (Bld) [#/Vol] 4.92 10*3/uL Normal 3.73-10.10 [facility] Comment on above: Performed By: #### H EMOGC ####[facility] (DEFAULT)[address] [facility] [place] [address] Erythrocyte distribution width (RBC) [Ratio] 13.4 % 10.9 - 14.3 % [facility] Hematocrit (Bld) [Volume fraction] 37.6 % Low 39.6 - 48.8 % [facility] Hemoglobin (Bld) [Mass/Vol] 12.2 g/dL Low 13.4 - 16.8 g/dL [facility] Interpretation and review of laboratory results Abnormal [facility] MCH (RBC) [Entitic mass] 27.6 pg 26.1 - 33.3 pg [facility] MCHC (RBC) [Mass/Vol] 32.4 g/dL 31.9 - 36.5 g/dL [facility] MCV (RBC) [Entitic vol] 85.1 fL 79.0 - 94.5 fL [facility] Platelet mean volume (Bld) [Entitic vol] 9.4 fL 8.7 - 12.3 fL [facility] Platelets (Bld) [#/Vol] 233 10*3/uL 146 - 337 K/uL [facility] RBC (Bld) [#/Vol] 4.42 10*6/uL [facility] WBC (Bld) [#/Vol] 4.92 10*3/uL 3.73 - 10. 10 K/uL [facility] CHEM 7 (LYTES,BUN,CREA,GLUC) on 08-29-2023 Anion gap [Moles/Vol] 13 mmol/L Normal 7-17 [facility] Comment on above: Performed By: #### M GO, CHM7, GGTB, HFP ####[facility] (DEFAULT)[address] [place] [address] Chloride [Moles/Vol] 105 mmol/L Normal 98-108 [facility] Comment on above: Performed By: #### M GO, CHM7, GGTB, HFP ####[facility] (DEFAULT)[address] [place] [address] CO2 [Moles/Vol] 20 mmol/L Low 21-31 [facility] Comment on above: Performed By: #### M GO, CHM7, GGTB, HFP ####[facility] (DEFAULT)[address] [place] [address] Creatinine [Mass/Vol] 1.55 mg/dL High 0.70-1.30 [facility] Comment on above: Performed By: #### Rod BLOOM, CHM7, GGTB, HFP ####[facility] (DEFAULT)[address] [place] [address] GFR/1.73 sq M.predicted among non-blacks MDRD (S/P/Bld) [Vol rate/Area] 54 mL/min/{1.73_m2} Low >=60 [facility] Comment on above: Result Comment: Repo rted eGFR is based on the CKD-EPI 2020 equation using creatinine, age, and sex. Performed By: #### Rod GO, CHM7, GGTB, HFP ####[facility] (DEFAULT)[address] [place] [address], [place] [address] Glucose [Mass/Vol] 108 mg/dL High 70-99 [facility] Comment on above: Performed By: #### Rod BLOOM, CHM7, GGTB, HFP ####[facility] (DEFAULT)[address] [place] [address], [place] [address] Osmolality [Osmolality] 283 mosm/kg Normal 278-305 [facility] Comment on above: Performed By: #### Rod BLOOM, CHM7, GGTB, HFP ####[facility] (DEFAULT)[address] [place], [place] [address], [place] [address] Potassium [Moles/Vol] 4.5 mmol/L Normal 3.5-5.0 [facility] Comment on above: Performed By: #### Rod BLOOM, CHM7, GGTB, HFP ####U [facility] (DEFAULT)[address] [place], [place] [address], [place] [address] Sodium [Moles/Vol] 133 mmol/L Low 135-145 [facility] Comment on above: Performed By: #### Rod GO, CHM7, GGTB, HFP ####[facility] (DEFAULT)[address] [place] [address] Urea nitrogen [Mass/Vol] 19 mg/dL Normal 7-25 [facility] Comment on above: Performed By: #### M MERLE CHM7, GGTB, HFP ####[facility] (DEFAULT)[address] [place] [address] Urea nitrogen/Creatinine [Mass ratio] 12 mg/mg Normal [facility] Comment on above: Performed By: #### M MERLE CHM7, GGTB, HFP ####U [facility] (DEFAULT)[address] [place] [address] Anion gap [Moles/Vol] 13 mmol/L 7 - 17 mmol/L [facility] Chloride [Moles/Vol] 105 mmol/L 98 - 10 8 mmol/L [facility] CO2 [Moles/Vol] 20 mmol/L Low 21 - 31 mmol/L [facility] Creatinine [Mass/Vol] 1.55 mg/dL High 0.70 - 1.30 mg/dL [facility] eGFR, CKD-EPI, Male 55 Low - [facility] Glucose [Mass/Vol] 108 mg/dL High 70 - 99 mg/dL [facility] Osmolality Calc [Osmolality] 283 [facility] Potassium [Moles/Vol] 4.5 mmol/L 3.5 - 5.0 mmol/L [facility] Sodium [Moles/Vol] 133 mmol/L Low 135 - 145 mmol/L [facility] Urea nitrogen [Mass/Vol] 19 mg/dL 7 - 25 mg/dL [facility] Urea nitrogen/Creatinine [Mass ratio] 12 mg/mg [facility] GGTon 08-29-2023 Gamma glutamyl transferase [Catalytic activity/Vol] 64 U/L 8 - 64 U/L [facility] Interpretation and review of laboratory results Normal [facility] Gamma glutamyl transferase [Catalytic activity/Vol] 64 U/L Normal 8-64 [facility] Comment on above: Performed By: #### M GO, CHM7, GGTB, HFP ####[facility] (DEFAULT)[address] [place] [address] HEPATIC FUNCTION PANELon Albumin [Mass/Vol] 3.3 g/dL Low 3.5-5.0 [facility] Comment on above: Performed By: #### M GO, CHM7, GGTB, HFP ####[facility] (DEFAULT)[address] [place] [address] ALP [Catalytic activity/Vol] 103 U/L Normal 32-126 [facility] Comment on above: Performed By: #### M GO, CHM7, GGTB, HFP ####[facility] (DEFAULT)[address] [place] [address] ALT [Catalytic activity/Vol] 18 U/L Normal 10-52 [facility] Comment on above: Performed By: #### M GO, CHM7, GGTB, HFP ####[facility] (DEFAULT)[address] [place] [address] AST [Catalytic activity/Vol] 27 U/L Normal 10-39 [facility] Comment on above: Performed By: #### M GO, CHM7, GGTB, HFP ####[facility] (DEFAULT)[address] [place] [address] Bilirubin [Mass/Vol] 1.1 mg/dL Normal <1.5 [facility] Comment on above: Performed By: #### M GO, CHM7, GGTB, HFP ####[facility] (DEFAULT)[address] [place] [address] Bilirubin.indirect [Mass/Vol] 0.3 mg/dL High <0.3 [facility] Comment on above: Performed By: #### M GO, CHM7, GGTB, HFP ####[facility] (DEFAULT)[address] [place] [address] Protein [Mass/Vol] 6.8 g/dL Normal 6.4-8.3 [facility] Comment on above: Performed By: #### M GO, CHM7, GGTB, HFP ####[facility] (DEFAULT)[address] [place] [address] Albumin [Mass/Vol] 3.3 g/dL Low 3.5 - 5.0 g/dL [facility] ALP [Catalytic activity/Vol] 103 U/L 32 - 126 U/L [facility] ALT [Catalytic activity/Vol] 18 U/L 10 - 52 U/L [facility] AST [Catalytic activity/Vol] 27 U/L 10 - 39 U/L [facility] Bilirubin [Mass/Vol] 1.1 mg/dL NINF - 1.5 mg/dL [facility] Bilirubin.direct [Mass/Vol] 0.3 mg/dL High NINF - 0.3 mg/dL [facility] Protein [Mass/Vol] 6.8 g/dL 6.4 - 8.3 g/dL [facility] HISTOPLASMA AND BLASTOMYCES ANTIGEN, ENZYME IMMUNOASSAY, SERMon 08-29-2023 Histoplasma/Blastomy antonia Ag Result Detected Invalid Interpretation Code Not Detected [facility] Comment on above: Result Comment: Anti gen from Histoplasma or Blastomyces (unable todifferentiate) detected. Result should be correlated withclinical presentation, exposure history, and otherdiagnostic procedures, including culture, serology,histopathology, and/or radiographic findings, to aid in thedifferentiation between histoplasmosis and blastomycosis.CRITICAL RESULT Performed By: #### H IBAG ####[facility] (DEFAULT)[address] [place] [address] Histoplasma/Blastomy antonia Ag Value 5.3 ng/mL Normal [facility] Comment on above: Result Comment: ---- ADDITIONAL INFORMATION This test was developed and its performance characteristicsdetermined by [facility] in a manner consistent with CLIArequirements. This test has not been cleared or approved bythe U.S. Food and Drug Administration.Test Performed by:[place] [id number] Director: Rosendo Bose M.D. Ph.D.; CLIA# [id number] Performed By: #### H IBAG ####[facility] (DEFAULT)[address] [place], [place] [address], [place] [address] HISTOPLASMA ANTIGEN,URINEon 08-29-2023 HISTOPLASM AG, URINE Not detected Normal Not Detected [facility] Comment on above: Result Comment: No H istoplasma antigen detected.False negative results may occur. Repeat testing on anew specimen should be considered if clinically indicated. Performed By: #### Y HISTG ####[facility] (DEFAULT)[address] [place], [place] [address], [place] [address] Histoplasma Ag Value Not detected Normal [facility] Comment on above: Result Comment: ---- ADDITIONAL INFORMATION This test has been modified from the emergency response officer'sinstructions. Its performance characteristics weredetermined by [facility] in a manner consistent withCLIA requirements. This test has not been cleared orapproved by the U.S. Food and Drug Administration.Test Performed by:[address] [id number] Director: Rosendo Bose M.D. Ph.D.; CLIA# [id number] Performed By: #### Y HISTG ####[facility] (DEFAULT)[address] [place], [place] [address], [place] [address] MAGNESIUMon 08-29-2023 Magnesium [Mass/Vol] 1.7 mg/dL Normal 1.6-2.6 [facility] Comment on above: Performed By: #### M GO, CHM7, GGTB, HFP ####[facility] (DEFAULT)[address] [place] [address] Interpretation and review of laboratory results Normal [facility] Magnesium [Mass/Vol] 1.7 mg/dL 1.6 - 2 .6 mg/dL [facility] No Panel Informationon 08-29 Interpretation and review of laboratory results Abnormal [facility] PT,INR,PTTon 08-29-2023 aPTT Coag (Bld) [Time] 29.3 s Normal 24.0-34.3 [facility] Comment on above: Performed By: #### P TPTT ####[facility] (DEFAULT)[address] [place] [address] INR Coag (PPP) [Relative time] 1.1 {INR} Normal 0.9-1.1 [facility] Comment on above: Performed By: #### P TPTT ####[facility] (DEFAULT)[address] [place] [address] PT Coag (PPP) [Time] 13.8 s Normal 11.9-14.2 [facility] Comment on above: Performed By: #### P TPTT ####[facility] (DEFAULT)[address] [place] [address] aPTT Coag (PPP) [Time] 29.3 s [facility] INR Coag (Bld) [Relative time] 1.1 {INR} 0.9 - 1.1 [facility] Interpretation and review of laboratory results Normal [facility] PT Coag (PPP) [Time] 13.8 s [facility] Portable XR Chest Viewson RADIOLOGY RADIOLOGY [facility] Portable XR Chest ViewsOrder ed By: Gerald Baer on 08-29-2023 [facility] Work Phone: TACROLIMUS LEVEL, TROUGH (MT E DRUG LEVEL)on 08-29-2023 Interpretation and review of laboratory results Normal [facility] Tacrolimus (Bld) [Mass/Vol] 8.9 ng/mL [facility] Tacrolimus, Trough 8.9 ng/mL Normal [facility] [place] [facility] Transplant: 4.0-12.0, Therapeutic: 5.0-15.0 [facility] Comment on above: Order Comment: Pleas e draw at specified interval PRIOR to dose. Do not hold dose to wait for level. Specimens batched twice per day, (M-F) and once per day weekendsMethod performed is a chemiluminescent microparticle immunoasssay on the [employer] Cat[employer] Operator i2000.The range is based on experience at [facility] and users should be aware that target concentrations vary widely depending on concomitant therapy, time post-transplant, and desired degree of immunosuppression. Performed By: #### T ACRO ####[facility] (DEFAULT)[address] [place] [address] Tacrolimus, Trough 8.7 ng/mL Normal [facility] [place] [facility] Transplant: 4.0-12.0, Therapeutic: 5.0-15.0 [facility] Comment on above: Order Comment: Pleas e draw at specified interval PRIOR to dose. Do not hold dose to wait for level. Specimens batched twice per day, (M-F) and once per day weekendsMethod performed is a chemiluminescent microparticle immunoasssay on the [employer] Operator i2000.The range is based on experience at [facility] and users should be aware that target concentrations vary widely depending on concomitant therapy, time post-transplant, and desired degree of immunosuppression. Performed By: #### T ACRO ####[facility] (DEFAULT)[address] [place] [address] TACROLIMUS LEVEL, TROUGH (MT E DRUG LEVEL)Ordered By: Roxanne Louie on 08-29-2023 Interpretation and review of laboratory results Normal [facility] Tacrolimus (Bld) [Mass/Vol] 8.7 ng/mL [facility] URINALYSIS REFLEX TO CULTURE PERFORMABLEon 08-29-2023 Appearance (U) Clear Normal Clear [facility] Comment on above: Order Comment: For i ndwelling catheters, specimen collection is acceptable on catheter day 1 and 2 only. ? Performed By: #### U [id number] ####[facility] (DEFAULT)[address] [place] [address] Bacteria ABSENT Normal ABSENT [facility] Comment on above: Order Comment: For i ndwelling catheters, specimen collection is acceptable on catheter day 1 and 2 only. ? Performed By: #### U [id number] ####U [facility] (DEFAULT)[address] [place] [address] Blood Urine Trace Abnormal Negative [facility] Comment on above: Order Comment: For i ndwelling catheters, specimen collection is acceptable on catheter day 1 and 2 only. ? Performed By: #### U [id number] ####[facility] (DEFAULT)[address] [place] [address] Calcium Oxalate Crystals PRESENT Normal [facility] Comment on above: Order Comment: For i ndwelling catheters, specimen collection is acceptable on catheter day 1 and 2 only. ? Performed By: #### U [id number] ####[facility] (DEFAULT)[address] [place] [address] Color (U) Yellow Normal Yellow [facility] Comment on above: Order Comment: For i ndwelling catheters, specimen collection is acceptable on catheter day 1 and 2 only. ? Performed By: #### U [id number] ####[facility] (DEFAULT)[address] [place] [address] Glucose Ql (U) Negative Normal Negative [facility] Comment on above: Order Comment: For i ndwelling catheters, specimen collection is acceptable on catheter day 1 and 2 only. ? Performed By: #### U [id number] ####[facility] (DEFAULT)[address] [place] [address] Ketones Ql (U) Negative Normal Negative [facility] Comment on above: Order Comment: For i ndwelling catheters, specimen collection is acceptable on catheter day 1 and 2 only. ? Performed By: #### U [id number] ####[facility] (DEFAULT)[address] [place] [address] Leukocyte esterase Test strip Ql (U) Negative Normal Negative [facility] Comment on above: Order Comment: For i ndwelling catheters, specimen collection is acceptable on catheter day 1 and 2 only. ? Performed By: #### U [id number] ####[facility] (DEFAULT)[address] [place] [address] Nitrites Urine Negative Normal Negative [facility] Comment on above: Order Comment: For i ndwelling catheters, specimen collection is acceptable on catheter day 1 and 2 only. ? Performed By: #### U [id number] ####[facility] (DEFAULT)[address] [place] [address] pH (U) 6.0 [pH] Normal 5.0-7.0 [facility] Comment on above: Order Comment: For i ndwelling catheters, specimen collection is acceptable on catheter day 1 and 2 only. ? Performed By: #### U [id number] ####[facility] (DEFAULT)[address] [place] [address] Protein Urine Negative Normal Negative [facility] Comment on above: Order Comment: For i ndwelling catheters, specimen collection is acceptable on catheter day 1 and 2 only. ? Performed By: #### U [id number] ####[facility] (DEFAULT)[address] [place], [place] [address], [place] [address] RBC Urine 3-5 Abnormal 0-2 [facility] Comment on above: Order Comment: For i ndwelling catheters, specimen collection is acceptable on catheter day 1 and 2 only. ? Performed By: #### U [id number] ####[facility] (DEFAULT)[address] [place], [place] [address], [place] [address] Specific [place] Urine 1.015 Normal 1.001-1.035 [facility] Comment on above: Order Comment: For i ndwelling catheters, specimen collection is acceptable on catheter day 1 and 2 only. ? Performed By: #### U [id number] ####[facility] (DEFAULT)[address] [place] [address] Squamous/Epithelial Cells 0-2/hpf Normal 0-2/hpf, 3-5/hpf = 1+ [facility] Comment on above: Order Comment: For i ndwelling catheters, specimen collection is acceptable on catheter day 1 and 2 only. ? Performed By: #### U [id number] ####[facility] (DEFAULT)[address] [place] [address] Urobilinogen Urine 1.0 E.U./dL Normal 0.2 E.U/d L, 1.0 E.U/dL [facility] Comment on above: Order Comment: For i ndwelling catheters, specimen collection is acceptable on catheter day 1 and 2 only. ? Performed By: #### U [id number] ####[facility] (DEFAULT)[address] [place] [address] WBC Urine 0 - 5 Normal 0 - 5 [facility] Comment on above: Order Comment: For i ndwelling catheters, specimen collection is acceptable on catheter day 1 and 2 only. ? Performed By: #### U [id number] ####[facility] (DEFAULT)[address] [place] [address] URINALYSIS REFLEX TO CULTURE PERFORMABLEOrdered By: Shaji Kelly on 08-29-2023 Appearance (U) Clear Clear U [facility] Bacteria LM Ql (Urine sed) ABSENT ABSENT U [facility] Calcium Oxalate Crystals PRESENT [facility] Color (U) Yellow Yellow [facility] Epithelial cells.squamous LM Ql (Urine sed) 0-2/hpf 0-2/hpf, 3-5/hpf = 1+ [facility] Glucose Test strip (U) [Mass/Vol] Negative Negative [facility] Interpretation and review of laboratory results Abnormal [facility] Ketones (U) [Mass/Vol] Negative Negative [facility] Leukocyte esterase Test strip Ql (U) Negative Negative [facility] Nitrite Ql (U) Negative Negative [facility] pH (U) 6.0 [pH] 5.0 - 7.0 [facility] Protein (U) [Mass/Vol] Negative Negative [facility] RBC (U) [#/Vol] Trace Abnormal Negative [facility] RBC LM.HPF (Urine sed) [#/Area] 3-5 Abnormal [facility] Specific gravity (U) [Rel density] 1.015 1.001 - 1.035 [facility] Urobilinogen (U) [Mass/Vol] 1.0 E.U./dL 0.2 E.U/dL, 1.0 E.U/dL [facility] WBC LM.HPF (Urine sed) [#/Area] 0 - 5 [facility] URINE CULTUREon 08-29-2023 Bacteria identified Cx Nom (U) No Growth Normal [facility] Comment on above: Order Comment: For i ndwelling catheters, specimen collection is acceptable on catheter day 1 and 2 only. Sung top vacutainer. Urine must be to the fill line to process (4mls). If minimum volume, send urine in a yellow top vacutainer tube. Performed By: #### U R ####[facility] (DEFAULT)[address] [place] [address] US RENAL TRANSPLANT SCANon 0 08-29-2023 US RENAL TRANSPLANT SCAN Normal [facility] US for transplanted kidney l imitedon 08-29-2023 RADIOLOGY RADIOLOGY [facility] Radiology Study observation (narrative) [facility] US for transplanted kidney l imitedOrdered By: Romana Matias on 08-29-2023 [facility] Work Phone: XR CHEST PORTABLEon 08-29-20 XR CHEST PORTABLE Normal [facility] BLOOD CULTUREon 08-28-2023 Bacteria identified Cx Nom (Unsp spec) NO GROWTH DAY 5 OF 5 Normal [facility] Comment on above: Order Comment: 2 [...] anaerobic Performed By: #### B LDCULT ####[facility] (DEFAULT)[address] [place] [address] Bacteria identified Cx Nom (Unsp spec) NO GROWTH DAY 5 OF 5 Normal [facility] Comment on above: Order Comment: 2 [...] anaerobic Performed By: #### B LDCULT ####[facility] (DEFAULT)[address] [place] [address] DARYL AURIS SCREEN BY PCRo n 08-28-2023 Daryl auris Screen by PCR Not detected Normal Not Detected [facility] Comment on above: Order Comment: This test was performed using a real-time PCR assay. This test was developed, and its performance characteristics determined by [facility]. It has not been cleared or approved by the FDA. The laboratory is regulated under CLIA as qualified to perform high-complexity testing. This test is used for clinical purposes. It should not be regarded as investigational or for research. Performed By: #### C ANDIDA AURIS SCREEN BY PCR ####[facility] (DEFAULT)[address] [place] [address] CBC AND ELECTRONIC DIFFon Abs Baso Auto < Normal 0.00-0.09 [facility] Comment on above: Performed By: #### L [id number] ####[facility] (DEFAULT)[address] [place] [address] Basophils/100 WBC (Bld) 0.6 % Normal [facility] Comment on above: Performed By: #### L [id number] ####[facility] (DEFAULT)[address] [place] [address] DIFF STATUS Electronic Differential Normal [facility] Comment on above: Performed By: #### L [id number] ####[facility] (DEFAULT)[address] [address] [place] [address] Eosinophils (Bld) [#/Vol] 0.10 10*3/uL Normal 0.00-0.48 [facility] Comment on above: Performed By: #### L [id number] ####[facility] (DEFAULT)[address] [place] [address] Eosinophils/100 WBC (Bld) 2.1 % Normal [facility] Comment on above: Performed By: #### L [id number] ####[facility] (DEFAULT)[address] [place] [address] Hematocrit (Bld) [Volume fraction] 37.9 % Low 39.6-48.8 [facility] Comment on above: Performed By: #### L [id number] ####[facility] (DEFAULT)[address] [place] [address] Hemoglobin (Bld) [Mass/Vol] 12.4 g/dL Low 13.4-16.8 [facility] Comment on above: Performed By: #### L [id number] ####[facility] (DEFAULT)[address] [place] [address] Immature Grans % 0.6 % Normal [facility] Comment on above: Performed By: #### L [id number] ####[facility] (DEFAULT)[address] [place] [address], [place] [address] Immature Grans Absolute < Normal <=0.07 [facility] Comment on above: Performed By: #### L [id number] ####[facility] (DEFAULT)[address] [place] [address] Lymphocytes (Bld) [#/Vol] 1.76 10*3/uL Normal 0.83-3.57 [facility] Comment on above: Performed By: #### L [id number] ####[facility] (DEFAULT)[address] [place] [address] Lymphocytes/100 WBC (Bld) 37.1 % Normal [facility] Comment on above: Performed By: #### L [id number] ####[facility] (DEFAULT)[address] [place] [address] MCV (RBC) [Entitic vol] 85.0 fL Normal 79.0-94.5 [facility] Comment on above: Performed By: #### L [id number] ####[facility] (DEFAULT)[address] [place] [address] Mean Cell Hgb 27.8 pg Normal 26.1-33.3 [facility] Comment on above: Performed By: #### L AB980 ####[facility] (DEFAULT)[address] [place] [address] Mean Cell Hgb Conc 32.7 g/dL Normal 31.9-36.5 [facility] Comment on above: Performed By: #### L [id number] ####[facility] (DEFAULT)[address] [place] [address] Monocytes (Bld) [#/Vol] 0.66 10*3/uL Normal 0.24-0.93 [facility] Comment on above: Performed By: #### L [id number] ####[facility] (DEFAULT)[address] [place] [address] Monocytes/100 WBC (Bld) 13.9 % Normal [facility] Comment on above: Performed By: #### L [id number] ####[facility] (DEFAULT)[address] [place] [address] Nucleated RBC 0.0 /100 WBC Normal <=0.2 [facility] Comment on above: Performed By: #### L [id number] ####[facility] (DEFAULT)[address] [place] [address] Platelet mean volume (Bld) [Entitic vol] 9.3 fL Normal 8.7-12.3 [facility] Comment on above: Performed By: #### L [id number] ####[facility] (DEFAULT)[address] [place] [address] Platelets (Bld) [#/Vol] 262 10*3/uL Normal 146-337 [facility] Comment on above: Performed By: #### L [id number] ####[facility] (DEFAULT)[address] [place] [address] RBC (Bld) [#/Vol] 4.46 10*6/uL Normal 4.38-5.83 [facility] Comment on above: Performed By: #### L [id number] ####[facility] (DEFAULT)[address] [place] [address] RBC Distribution 13.4 % Normal 10.9-14.3 [facility] Comment on above: Performed By: #### L [id number] ####[facility] (DEFAULT)[address] [place] [address] Segs + Bands Auto 45.7 % Normal [facility] Comment on above: Performed By: #### L [id number] ####[facility] (DEFAULT)[address] [facility] [place] [address] Segs + Bands,Absolute Auto 2.16 K/uL Normal 1.57-6.19 [facility] Comment on above: Performed By: #### L [id number] ####[facility] (DEFAULT)[address] [place] [address] WBC (Bld) [#/Vol] 4.74 10*3/uL Normal 3.73-10.10 [facility] Comment on above: Performed By: #### L [id number] ####[facility] (DEFAULT)[address] [place] [address] Basophils (Bld) [#/Vol] K/uL 0.00 - 0.09 K/uL [facility] Basophils/100 WBC (Bld) 0.6 % [facility] Differential cell count method Nom (Bld) Electronic Differential [facility] Eosinophils (Bld) [#/Vol] 0.10 10*3/uL 0.00 - 0.48 K/uL [facility] Eosinophils/100 WBC (Bld) 2.1 % [facility] Erythrocyte distribution width (RBC) [Ratio] 13.4 % 10.9 - 14.3 % [facility] Hematocrit (Bld) [Volume fraction] 37.9 % Low 39.6 - 48.8 % [facility] Hemoglobin (Bld) [Mass/Vol] 12.4 g/dL Low 13.4 - 16.8 g/dL [facility] Immature granulocytes (Bld) [#/Vol] K/uL NINF - 0.07 K/uL [facility] Immature granulocytes/100 WBC (Bld) 0.6 % [facility] Interpretation and review of laboratory results Abnormal [facility] Lymphocytes (Bld) [#/Vol] 1.76 10*3/uL 0.83 - 3.57 K/uL [facility] Lymphocytes/100 WBC (Bld) 37.1 % [facility] MCH (RBC) [Entitic mass] 27.8 pg 26.1 - 33.3 pg [facility] MCHC (RBC) [Mass/Vol] 32.7 g/dL 31.9 - 36.5 g/dL [facility] MCV (RBC) [Entitic vol] 85.0 fL 79.0 - 94.5 fL [facility] Monocytes (Bld) [#/Vol] 0.66 10*3/uL 0.24 - 0.93 K/uL [facility] Monocytes/100 WBC (Bld) 13.9 % [facility] Neutrophils (Bld) [#/Vol] 2.16 10*3/uL 1.57 - 6.19 K/uL [facility] Nucleated RBC/100 WBC (Bld) [Ratio] 0.0 % NINF [facility] Platelet mean volume (Bld) [Entitic vol] 9.3 fL 8.7 - 12.3 fL [facility] Platelets (Bld) [#/Vol] 262 10*3/uL 146 - 337 K/uL [facility] RBC (Bld) [#/Vol] 4.46 10*6/uL [facility] Segmented neutrophils/100 WBC (Bld) 45.7 % [facility] WBC (Bld) [#/Vol] 4.74 10*3/uL 3.73 - 10. 10 K/uL [facility] CHEM 6 (LYTES, BUN CREA)on 0 08-28-2023 Anion gap [Moles/Vol] 13 mmol/L Normal 7-17 [facility] Comment on above: Performed By: #### C HM6 ####[facility] (DEFAULT)[address] [place] [address] Chloride [Moles/Vol] 103 mmol/L Normal 98-108 [facility] Comment on above: Performed By: #### C HM6 ####[facility] (DEFAULT)[address] [place] [address] CO2 [Moles/Vol] 22 mmol/L Normal 21-31 [facility] Comment on above: Performed By: #### C HM6 ####[facility] (DEFAULT)[address] [facility] [place] [address] Creatinine [Mass/Vol] 1.62 mg/dL High 0.70-1.30 [facility] Comment on above: Performed By: #### C HM6 ####[facility] (DEFAULT)[address] [place] [address] GFR/1.73 sq M.predicted among non-blacks MDRD (S/P/Bld) [Vol rate/Area] 51 mL/min/{1.73_m2} Low >=60 [facility] Comment on above: Result Comment: Repo rted eGFR is based on the CKD-EPI 2020 equation using creatinine, age, and sex. Performed By: #### C HM6 ####[facility] (DEFAULT)[address] [place] [address] Potassium [Moles/Vol] 4.3 mmol/L Normal 3.5-5.0 [facility] Comment on above: Performed By: #### C HM6 ####[facility] (DEFAULT)[address] [place] [address] Sodium [Moles/Vol] 134 mmol/L Low 135-145 [facility] Comment on above: Performed By: #### C HM6 ####[facility] (DEFAULT)[address] [place] [address] Urea nitrogen [Mass/Vol] 22 mg/dL Normal 7-25 [facility] Comment on above: Performed By: #### C HM6 ####[facility] (DEFAULT)[address] [place] [address] Urea nitrogen/Creatinine [Mass ratio] 14 mg/mg Normal [facility] Comment on above: Performed By: #### C HM6 ####[facility] (DEFAULT)[address] [place] [address] Anion gap [Moles/Vol] 13 mmol/L 7 - 17 mmol/L [facility] Chloride [Moles/Vol] 103 mmol/L 98 - 10 8 mmol/L [facility] CO2 [Moles/Vol] 22 mmol/L 21 - 31 mmol/L [facility] Creatinine [Mass/Vol] 1.62 mg/dL High 0.70 - 1.30 mg/dL [facility] eGFR, CKD-EPI, Male 52 Low - PINF [facility] Interpretation and review of laboratory results Abnormal [facility] Potassium [Moles/Vol] 4.3 mmol/L 3.5 - 5.0 mmol/L [facility] Sodium [Moles/Vol] 134 mmol/L Low 135 - 145 mmol/L [facility] Urea nitrogen [Mass/Vol] 22 mg/dL 7 - 25 mg/dL [facility] Urea nitrogen/Creatinine [Mass ratio] 14 [facility] RESPIRATOR Y PANELon 08-28-2023 Adenovirus - Pcr Not detected Normal Not Detected [facility] Comment on above: Order Comment: Viral transport [...] acid assay. Performed By: #### I CRESP ####[facility] (DEFAULT)[address] [place] [address] Bordetella Parapertussis Not detected Normal Not Detected [facility] Comment on above: Order Comment: Viral transport [...] acid assay. Performed By: #### I CRESP ####[facility] (DEFAULT)[address] [place] [address] Bordetella Pertussis Not detected Normal Not Detected [facility] Comment on above: Order Comment: Viral transport [...] acid assay. Performed By: #### I CRESP ####[facility] (DEFAULT)[address] [place] [address] Chlamydia Pneumoniae Not detected Normal Not Detected [facility] Comment on above: Order Comment: Viral transport [...] acid assay. Performed By: #### I CRESP ####[facility] (DEFAULT)[address] [place] [address], [place] [address] Coronavirus 229E Not detected Normal Not Detected [facility] Comment on above: Order Comment: Viral transport [...] acid assay. Performed By: #### I CRESP ####[facility] (DEFAULT)[address] [place] [address] Coronavirus Hku1 Not detected Normal Not Detected [facility] Comment on above: Order Comment: Viral transport [...] acid assay. Performed By: #### I CRESP ####[facility] (DEFAULT)[address] [place] [address], [place] [address] Coronavirus Nl63 Not detected Normal Not Detected [facility] Comment on above: Order Comment: Viral transport [...] acid assay. Performed By: #### I CRESP ####[facility] (DEFAULT)[address] [place] [address], [place] [address] Coronavirus Oc43 Not detected Normal Not Detected [facility] Comment on above: Order Comment: Viral transport [...] assay. Performed By: #### I CRESP ####[facility] (DEFAULT)[address] [place] [address], [place] [address] Influenza A - Pcr Not detected Normal [...] assay. Performed By: #### I CRESP ####[facility] (DEFAULT)[address] [place] [address], [place] [address] Influenza B - Pcr Not detected Normal [...] assay. Performed By: #### I CRESP ####[facility] (DEFAULT)[address] [place] [address], [place] [address] Metapneumovirus - Pcr Not detected Normal Not Detected [facility] Comment on above: Order Comment: Viral transport [...] assay. Performed By: #### I CRESP ####[facility] (DEFAULT)[address] [place] [address], [place] [address] Mycoplasma Pneumoniae Not detected Normal Not Detected [facility] Comment on above: Order Comment: Viral transport [...] acid assay. Performed By: #### I CRESP ####[facility] (DEFAULT)[address] [place] [address], [place] [address] Parainfluenza 1 - Pcr Not detected Normal Not Detected [facility] Comment on above: Order Comment: Viral transport [...] assay. Performed By: #### I CRESP ####[facility] (DEFAULT)[address] [place] [address], [place] [address] Parainfluenza 2 - Pcr Not detected Normal Not Detected [facility] Comment on above: Order Comment: Viral transport [...] assay. Performed By: #### I CRESP ####[facility] (DEFAULT)[address] [place] [address] Parainfluenza 3 - Pcr Not detected Normal Not Detected [facility] Comment on above: Order Comment: Viral transport [...] assay. Performed By: #### I CRESP ####[facility] (DEFAULT)[address] [place] [address], [place] [address] Parainfluenza 4 - Pcr Not detected Normal Not Detected [facility] Comment on above: Order Comment: Viral transport [...] acid assay. Performed By: #### I CRESP ####[facility] (DEFAULT)[address] [place] [address], [place] [address] Rhinovirus/Enterovir us - PCR Not detected Normal Not Detected [facility] Comment on above: Order Comment: Viral transport [...] acid assay. Performed By: #### I CRESP ####[facility] (DEFAULT)[address] [place] [address] Rsv - Pcr Not detected Normal Not Detected [facility] Comment on above: Order Comment: Viral transport [...] acid assay. Performed By: #### I CRESP ####[facility] (DEFAULT)[address] [place] [address] SARS-CoV-2 (COVID-19) RNA ESTELITA+probe Ql (Unsp spec) Not detected Normal NOT DETECTED [facility] Comment on above: Order Comment: Viral transport [...] acid assay. Performed By: #### I CRESP ####[facility] (DEFAULT)[address] [place] [address] Portable XR Chest [facility]son Radiology Study observation (narrative) [facility] Respiratory virus DNA+RNA NA A+probe Nom (Unsp spec)Ordered By: Dayami Harris on 08-28-2023 Adenovirus DNA ESTELITA+probe Nom (Unsp spec) Not detected Not Detected [facility] B. parapertussis DNA ESTELITA+probe Ql (Unsp spec) Not detected Not Detected [facility] B. pertussis DNA ESTELITA+probe Ql (Unsp spec) Not detected Not Detected [facility] C. pneumoniae DNA ESTELITA+probe Ql (Unsp spec) Not detected Not Detected [facility] FLUAV RNA ESTELITA+probe Ql (Unsp spec) Not detected Not Detected [facility] FLUBV RNA ESTELITA+probe Ql (Unsp spec) Not detected Not Detected [facility] HCoV 229E RNA ESTELITA+non-probe Ql (Nph) Not detected Not [facility] HCoV HKU1 RNA ESTELITA+non-probe Ql (Nph) Not detected Not Detected [facility] HCoV NL63 RNA ESTELITA+non-probe Ql (Nph) Not detected Not Detected [facility] HCoV OC43 RNA ESTELITA+non-probe Ql (Nph) Not detected Not Detected [facility] hMPV A RNA ESTELITA+probe Ql (Unsp spec) Not detected Not Detected [facility] Interpretation and review of laboratory results Normal [facility] M. pneumoniae DNA ESTELITA+probe Ql (Unsp spec) Not detected Not Detected [facility] Parainfluenza virus 1 RNA ESTELITA+probe Ql (Unsp spec) Not detected Not Detected [facility] Parainfluenza virus 2 RNA ESTELITA+probe Ql (Unsp spec) Not detected Not Detected [facility] Parainfluenza virus 3 RNA ESTELITA+probe Ql (Unsp spec) Not detected Not Detected [facility] Parainfluenza virus 4 RNA ESTELITA+probe Ql (Unsp spec) Not detected Not Detected [facility] Rhinovirus+Enterovir us RNA ESTELITA+probe Ql (Unsp spec) Not detected Not Detected [facility] RSV RNA ESTELITA+probe Ql (Unsp spec) Not detected Not Detected [facility] SARS-CoV-2 (COVID-19) RNA ESTELITA+probe Ql (Unsp spec) Not detected NOT DETECTED [facility] ALBUMINon 04-28-2023 Albumin [Mass/Vol] 4.0 g/dL Normal 3.4-5.0 [facility] Comment on above: Performed By: #### C MP #### [facility] [address] [address] [address] Dwight Waters ALKALINE PHOSPHAon ALP [Catalytic activity/Vol] 106 U/L Normal 46-116 [facility] Comment on above: Performed By: #### F [id number] #### [facility] [address] [place] [address] Dr. Dwight Waters BILIRUBIN CONJUGATED (DIRECT )on 04-28-2023 BILI, CONJUGATED 0.3 mg/dL Critically high 0.0-0.2 [facility] Comment on above: Performed By: #### C MP #### [facility] [address] [place] [address] Dr. Dwight Waters BILIRUBIN TOTALon 04-28-2023 Bilirubin [Mass/Vol] 1.4 mg/dL Critically high 0.2-1.[address] [facility] Comment on above: Performed By: #### C MP #### [facility] [address] [place] [address] Dr. Dwight Waters BUNon 04-28-2023 Urea nitrogen [Mass/Vol] 12.0 mg/dL Normal 7.0-18.[address] [facility] Comment on above: Performed By: #### U RTPCR #### [facility] [address] [place] [address] Dr. Dwight Waters CALCIUMon 04-28-2023 Calcium [Mass/Vol] 9.3 mg/dL Normal 8.5-10.[address] [facility] Comment on above: Performed By: #### U RTPCR #### [facility] [address] [place] [address] Dr. Dwight Waters CBC AUTO DIFFon 04-28-2023 BASO # 0.1 103/ul Normal 0.0-0.[address] [facility] Comment on above: Performed By: #### C BC #### [facility] [address] [place] [address] Dr. Dwight Waters Basophils/100 WBC (Bld) 0.9 % Normal 0.2-2.[address] [facility] Comment on above: Performed By: #### C BC #### [facility] [address] [place] [address] Dr. Dwight Waters EO # 0.2 103/ul Normal 0.0-0.[address] [facility] Comment on above: Performed By: #### C BC #### [facility] [address] [place] [address] Dr. Dwight Waters Eosinophils/100 WBC (Bld) 3.8 % Normal 0.9-7.0 [facility] Comment on above: Performed By: #### C BC #### [facility] [address] [place] [address] Dr. Dwight Waters Erythrocyte distribution width (RBC) [Ratio] 12.5 % Normal 11.0-15.0 [facility] Comment on above: Performed By: #### C BC #### [facility] [address] [place] [address] Dr. Dwight Waters Hematocrit (Bld) [Volume fraction] 49.8 % Normal 42.0-54.0 [facility] Comment on above: Performed By: #### C BC #### [facility] [address] [place] [address] Dr. Dwight Waters Hemoglobin (Bld) [Mass/Vol] 16.4 g/dL Normal 14.0-18.0 [facility] Comment on above: Performed By: #### C BC #### [facility] [address] [place] [address] Dr. Dwight Waters IG # 0.01 10e3/ul Normal 0.00-0.03 [facility] Comment on above: Performed By: #### C BC #### [facility] [address] [place] [address] Dr. Dwight Waters IG % 0.2 % Normal 0.0-0.5 [facility] Comment on above: Performed By: #### C BC #### [facility] [address] [place] [address] Dr. Dwight Waters LYMPH # 2.1 103/ul Normal 1.2-3.[address] [facility] Comment on above: Performed By: #### C BC #### [facility] [address] [place] [address] Dr. Dwight Waters Lymphocytes/100 WBC (Bld) 39.1 % Normal 20.5-60.0 [facility] Comment on above: Performed By: #### C BC #### [facility] [address] [place] [address] Dr. Dwight Waters MANUAL DIFF REQ NO Normal [facility] Comment on above: Performed By: #### C BC #### [facility] [address] [place] [address] Dr. Dwight Waters MCH (RBC) [Entitic mass] 28.6 pg Normal 25.9-34.0 [facility] Comment on above: Performed By: #### C BC #### [facility] [address] [place] [address] Dr. Dwight Waters MCHC (RBC) [Mass/Vol] 32.9 g/dL Normal 29.9-35.2 [facility] Comment on above: Performed By: #### C BC #### [facility] [address] [place] [address] Dr. Dwight Waters MCV (RBC) [Entitic vol] 86.9 fL Normal 80.0-94.0 [facility] Comment on above: Performed By: #### C BC #### [facility] [address] [place] [address] Dr. Dwight Waters MONO # 0.6 103/ul Normal 0.3-0.8 [facility] Comment on above: Performed By: #### C BC #### [facility] [address] [place] [address] Dr. Dwight Waters Monocytes/100 WBC (Bld) 10.6 % Normal 1.7-12.0 [facility] Comment on above: Performed By: #### C BC #### [facility] [address] [place] [address] Dr. Dwight Waters NEUT # 2.5 103/ul Normal 1.4-6.[address] [facility] Comment on above: Performed By: #### C BC #### [facility] [address] [place] [address] Dr. Dwight Waters Neutrophils/100 WBC (Bld) 45.4 % Normal 43.0-75.0 [facility] Comment on above: Performed By: #### C BC #### [facility] [address] [place] [address] Dr. Dwight Waters Platelet mean volume (Bld) [Entitic vol] 9.3 fL Critically low 9.5-13.5 [facility] Comment on above: Performed By: #### C BC #### [facility] [address] [place] [address] Dr. Dwight Waters PLT 248 103/ul Normal 150-[address] [facility] Comment on above: Performed By: #### C BC #### [facility] [address] [place] [address] Dr. Dwight Waters RBC 5.73 106/ul Normal 4.70-6.10 [facility] Comment on above: Performed By: #### C BC #### [facility] [address] [place] [address] Dr. Dwight Waters WBC 5.5 103/ul Normal 4.0-11.0 [facility] Comment on above: Performed By: #### C BC #### [facility] [address] [place] [address] Dr. Dwight Waters CHLORIDEon 04-28-2023 Chloride [Moles/Vol] 107 mmol/L Normal 98-107 [facility] Comment on above: Performed By: #### U RTPCR #### [facility] [address] [place] [address] Dr. Dwight Waters CO2on 04-28-2023 CO2 [Moles/Vol] 28.9 mmol/L Normal 21.0-32.0 [facility] Comment on above: Performed By: #### U RTPCR #### [facility] [address] [place] [address] Dr. Dwight Waters CREATININEon 04-28-2023 Creatinine [Mass/Vol] 1.17 mg/dL Normal 0.70-1.30 [facility] Comment on above: Performed By: #### U RTPCR #### [facility] [address] [place] [address] Dr. Dwight Waters EGFR-AF COOK ISLANDER >60 Normal >=60 [facility] Comment on above: Performed By: #### U RTPCR #### [facility] [address] [place] [address] Dr. Dwight Waters EGFR-NON AF [place]OOK ISLANDER >60 Normal >=60 [facility] Comment on above: Performed By: #### U RTPCR #### [facility] [address] [address] [address] Dwight Waters GGTon 04-28-2023 Gamma glutamyl transferase [Catalytic activity/Vol] 27 U/L Normal 15-85 [facility] Comment on above: Performed By: #### U RTPCR #### [facility] [address] [place] [address] Dr. Dwight Waters GLUCOSE BLOODon 04-28-2023 Glucose [Mass/Vol] 110 mg/dL Critically high 74-106 [facility] Comment on above: Performed By: #### U RTPCR #### [facility] [address] [place] [address] Dr. Dwight Waters MAGNESIUMon 04-28-2023 Magnesium [Mass/Vol] 1.7 mg/dL Critically low 1.8-2.4 [facility] Comment on above: Performed By: #### U RTPCR #### [facility] [address] [place] [address] Dr. Dwight Waters NAon 04-28-2023 Sodium [Moles/Vol] 144 mmol/L Normal 136-145 [facility] Comment on above: Performed By: #### U RTPCR #### [facility] [address] [place] [address] Dr. Dwight Waters PHOSPHORUSon 04-28-2023 Phosphate [Mass/Vol] 3.2 mg/dL Normal 2.6-4.7 [facility] Comment on above: Performed By: #### U RTPCR #### [facility] [address] [place] [address] Dr. Dwight Waters POTASSIUMon 04-28-2023 Potassium [Moles/Vol] 4.0 mmol/L Normal 3.5-5.[address] [facility] Comment on above: Performed By: #### U RTPCR #### [facility] [address] [place] [address] Dr. Dwight Waters SGOTon 04-28-2023 AST [Catalytic activity/Vol] 25 U/L Normal 15-37 [facility] Comment on above: Performed By: #### C MP #### [facility] [address] [place] [address] Dr. Dwight Waters [facility] 04-28-2023 ALT [Catalytic activity/Vol] 40 U/L Normal 16-63 [facility] Comment on above: Performed By: #### C MP #### [facility] [address] [place] [address] Dr. Dwight Waters URINE T PROTEIN CREAT RATIOo n 04-28-2023 Protein (U) [Mass/Vol] 10.1 mg/dL Normal <=12.0 [facility] Comment on above: Performed By: #### U RTPCR #### [facility] [address] [place] [address] Dr. Dwight Waters UR PROT CREAT RAT 0.14 Normal [facility] Comment on above: Performed By: #### U RTPCR #### [facility] [address] [place] [address] Dr. Dwight Waters URINE CREAT 74.40 mg/dL Normal 20.00-300.00 [facility] Comment on above: Performed By: #### U RTPCR #### [facility] [address] [place] [address] Dr. Dwight Waters Office Visiton 04-13-2023 Follow-up visit [id number] George Styles 1970 M Date Provider Department Center 04/13/2023 MIGUEL PARADA [facility] Family History Problem Relation Age of Onset Coronary artery disease Mother Coronary artery disease Father Family Status - Relation Status Age at Mother Father Level of Service:93397 MT OFFICE/OUTPATIENT ESTABLISHED LOW MDM 20-29 MIN Reason for Visit and Comments: Hypertension [484972] Hyperlipidemia [182] Normal [facility] BK VIRUS PCR QUANTon 023 BKV DNA QUANT PCR PLASMA Negative Normal Negative [facility] Comment on above: Result Comment: No B K DNA detected. . The linear range of the assay is 22 - 100,000,000 IU/mL. Performed By: #### B KVIRUS #### [facility] [address] [place] [address] Dr. Dwight Waters Log10 BKV DNA Plasma Normal [facility] Comment on above: Performed By: #### B KVIRUS #### [facility] [address] [place] [address] Dr. Dwight Waters FK506 (TACROLIMUS) WHOLE BLO ODon 03-04-2023 Tacrolimus (FK506), Blood 5.9 ng/mL Normal 2.0-20.0 [facility] Comment on above: Result Comment: Trou gh (immediately following transplant) 15.0 . Trough (steady state, 2 weeks or more after transplant): 3.0 - 8.0 . Performed by LC-MS/MS technology. Performed By: #### C MP #### [facility] [address] [place] [address] Dr. Dwight Waters ALBUMINon 03-02-2023 Albumin [Mass/Vol] 3.9 g/dL Normal 3.4-5.0 [facility] Comment on above: Performed By: #### U RTPCR #### [facility] [address] [place] [address] Dr. Dwight Waters ALKALINE PHOSPHAon ALP [Catalytic activity/Vol] 105 U/L Normal 46-[address] [facility] Comment on above: Performed By: #### U RTPCR #### [facility] [address] [place] [address] Dr. Dwight Waters BILIRUBIN CONJUGATED (DIRECT )on 03-02-2023 BILI, CONJUGATED 0.2 mg/dL Normal 0.0-0.[address] [facility] Comment on above: Performed By: #### U RTPCR #### [facility] [address] [place] [address] Dr. Dwight Waters BILIRUBIN TOTALon 03-02-2023 Bilirubin [Mass/Vol] 0.9 mg/dL Normal 0.2-1.[address] [facility] Comment on above: Performed By: #### U RTPCR #### [facility] [address] [place] [address] Dr. Dwight Waters CBC AUTO DIFFon 03-02-2023 BASO # 0.1 103/ul Normal 0.0-0.1 [facility] Comment on above: Performed By: #### C BC #### [facility] [address] [address] [address] Dwight Waters Basophils/100 WBC (Bld) 0.9 % Normal 0.2-2.0 [facility] Comment on above: Performed By: #### C BC #### [facility] [address] [address] [address] Dwight Waters EO # 0.2 103/ul Normal 0.0-0.[address] [facility] Comment on above: Performed By: #### C BC #### [facility] [address] [place] [address] Dr. Dwight Waters Eosinophils/100 WBC (Bld) 3.5 % Normal 0.9-7.0 [facility] Comment on above: Performed By: #### C BC #### [facility] [address] [place] [address] Dr. Dwight Waters Erythrocyte distribution width (RBC) [Ratio] 12.7 % Normal 11.0-15.0 [facility] Comment on above: Performed By: #### C BC #### [facility] [address] [place] [address] Dr. Dwight Waters Hematocrit (Bld) [Volume fraction] 48.2 % Normal 42.0-54.0 [facility] Comment on above: Performed By: #### C BC #### [facility] [address] [place] [address] Dr. Dwight Waters Hemoglobin (Bld) [Mass/Vol] 15.9 g/dL Normal 14.0-18.0 [facility] Comment on above: Performed By: #### C BC #### [facility] [address] [place] [address] Dr. Dwight Waters IG # 0.01 10e3/ul Normal 0.00-0.[address] [facility] Comment on above: Performed By: #### C BC #### [facility] [address] [place] [address] Dr. Dwight Waters IG % 0.2 % Normal 0.0-0.[address] [facility] Comment on above: Performed By: #### C BC #### [facility] [address] [place] [address] Dr. Dwight Waters LYMPH # 2.1 103/ul Normal 1.2-3.8 [facility] Comment on above: Performed By: #### C BC #### [facility] [address] [place] [address] Dr. Dwight Waters Lymphocytes/100 WBC (Bld) 37.4 % Normal 20.5-60.0 [facility] Comment on above: Performed By: #### C BC #### [facility] [address] [place] [address] Dr. Dwight Waters MANUAL DIFF REQ NO Normal [facility] Comment on above: Performed By: #### C BC #### [facility] [address] [place] [address] Dr. Dwight Waters MCH (RBC) [Entitic mass] 28.3 pg Normal 25.9-34.0 [facility] Comment on above: Performed By: #### C BC #### [facility] [address] [place] [address] Dr. Dwight Waters MCHC (RBC) [Mass/Vol] 33.0 g/dL Normal 29.9-35.2 [facility] Comment on above: Performed By: #### C BC #### [facility] [address] [place] [address] Dr. Dwight Waters MCV (RBC) [Entitic vol] 85.8 fL Normal 80.0-94.0 [facility] Comment on above: Performed By: #### C BC #### [facility] [address] [place] [address] Dr. Dwight Waters MONO # 0.6 103/ul Normal 0.3-0.[address] [facility] Comment on above: Performed By: #### C BC #### [facility] [address] [place] [address] Dr. Dwight Waters Monocytes/100 WBC (Bld) 10.2 % Normal 1.7-12.[address] [facility] Comment on above: Performed By: #### C BC #### [facility] [address] [address] [address] Dwight Waters NEUT # 2.7 103/ul Normal 1.4-6.[address] [facility] Comment on above: Performed By: #### C BC #### [facility] [address] [place] [address] Dr. Dwight Waters Neutrophils/100 WBC (Bld) 47.8 % Normal 43.0-75.[address] [facility] Comment on above: Performed By: #### C BC #### [facility] [address] [place] [address] Dr. Dwight Waters Platelet mean volume (Bld) [Entitic vol] 9.3 fL Critically low 9.5-13.[address] [facility] Comment on above: Performed By: #### C BC #### [facility] [address] [place] [address] Dr. Dwight Waters PLT 241 103/ul Normal 150-[address] [facility] Comment on above: Performed By: #### C BC #### [facility] [address] [place] [address] Dr. Dwight Waters RBC 5.62 106/ul Normal 4.70-6.[address] [facility] Comment on above: Performed By: #### C BC #### [facility] [address] [place] [address] Dr. Dwight Waters WBC 5.7 103/ul Normal 4.0-11.[address] [facility] Comment on above: Performed By: #### C BC #### [facility] [address] [place] [address] Dr. Dwight Waters GGTon 03-02-2023 Gamma glutamyl transferase [Catalytic activity/Vol] 25 U/L Normal 15-[address] [facility] Comment on above: Performed By: #### U RTPCR #### [facility] [address] [place] [address] Dr. Dwight Waters MAGNESIUMon 03-02-2023 Magnesium [Mass/Vol] 1.6 mg/dL Critically low 1.8-2.[address] [facility] Comment on above: Performed By: #### U RTPCR #### [facility] [address] [address] [address] Dwight Waters PHOSPHORUSon 03-02-2023 Phosphate [Mass/Vol] 3.6 mg/dL Normal 2.6-4.7 [facility] Comment on above: Performed By: #### U RTPCR #### [facility] [address] [address] [address] Dwight Waters PROF CHEM 8 (BAS METB)on Anion gap [Moles/Vol] 9.4 mmol/L Normal [facility] Comment on above: Performed By: #### U RTPCR #### [facility] [address] [address] [address] Dwight Waters Calcium [Mass/Vol] 9.3 mg/dL Normal 8.5-10.1 [facility] Comment on above: Performed By: #### U RTPCR #### [facility] [address] [place] [address] Dr. Dwight Waters Chloride [Moles/Vol] 108 mmol/L Critically high 98-[address] [facility] Comment on above: Performed By: #### U RTPCR #### [facility] [address] [place] [address] Dr. Dwight Waters CO2 [Moles/Vol] 27.2 mmol/L Normal 21.0-32.0 [facility] Comment on above: Performed By: #### U RTPCR #### [facility] [address] [place] [address] Dr. Dwight Waters Creatinine [Mass/Vol] 1.12 mg/dL Normal 0.70-1.[address] [facility] Comment on above: Performed By: #### U RTPCR #### [facility] [address] [place] [address] Dr. Dwight Waters EGFR-AF [place] ISLANDER >60 Normal >=[address] [facility] Comment on above: Performed By: #### U RTPCR #### [facility] [address] [place] [address] Dr. Dwight Waters EGFR-NON AF [place] ISLANDER >60 Normal >=[address] [facility] Comment on above: Performed By: #### U RTPCR #### [facility] [address] [address] [address] Dwight Waters Glucose [Mass/Vol] 113 mg/dL Critically high 74-106 [facility] Comment on above: Performed By: #### U RTPCR #### [facility] [address] [address] [address] Dwight Waters Potassium [Moles/Vol] 3.6 mmol/L Normal 3.5-5.1 [facility] Comment on above: Performed By: #### U RTPCR #### [facility] [address] [address] [address] Dwight Waters Sodium [Moles/Vol] 141 mmol/L Normal 136-145 [facility] Comment on above: Performed By: #### U RTPCR #### [facility] [address] [place] [address] Dr. Dwight Waters Urea nitrogen [Mass/Vol] 14.0 mg/dL Normal 7.0-18.0 [facility] Comment on above: Performed By: #### U RTPCR #### [facility] [address] [place] [address] Dr. Dwight Waters Urea nitrogen/Creatinine [Mass ratio] 12.5 mg/mg Normal [facility] Comment on above: Performed By: #### U RTPCR #### [facility] [address] [place] [address] Dr. Dwight Waters SGOTon 03-02-2023 AST [Catalytic activity/Vol] 20 U/L Normal 15-37 [facility] Comment on above: Performed By: #### U RTPCR #### [facility] [address] [place] [address] Dr. Dwight Waters SGPTon 03-02-2023 ALT [Catalytic activity/Vol] 30 U/L Normal 16-63 [facility] Comment on above: Performed By: #### U RTPCR #### [facility] [address] [place] [address] Dr. Dwight Waters URINE T PROTEIN CREAT RATIOo n 03-02-2023 Protein (U) [Mass/Vol] 10.3 mg/dL Normal <=12.0 [facility] Comment on above: Performed By: #### U RTPCR #### [facility] [address] [place] [address] Dr. Dwight Waters UR PROT CREAT RAT 0.15 Normal [facility] Comment on above: Performed By: #### U RTPCR #### [facility] [address] [place] [address] Dr. Dwight Waters URINE CREAT 68.96 mg/dL Normal 20.00-300.00 [facility] Comment on above: Performed By: #### U RTPCR #### [facility] [address] [place] [address] Dr. Dwight Waters BK VIRUS PCR QUANTon 023 BKV DNA QUANT PCR PLASMA Negative Normal Negative [facility] Comment on above: Result Comment: No B K DNA detected. . The linear range of the assay is 22 - 100,000,000 IU/mL. Performed By: #### C MP #### [facility] [address] [place] [address] Dr. Dwight Waters Log10 BKV DNA Plasma Normal [facility] Comment on above: Performed By: #### C MP #### [facility] [address] [place] [address] Dr. Dwight Waters FK506 (TACROLIMUS) WHOLE BLO ODon 12-31-2022 Tacrolimus (FK506), Blood 5.6 ng/mL Normal 2.0-20.0 [facility] Comment on above: Result Comment: Trou gh (immediately following transplant) 15.0 . Trough (steady state, 2 weeks or more after transplant): 3.0 - 8.0 . Performed by LC-MS/MS technology. Performed By: #### C MP #### [facility] [address] [place] [address] Dr. Dwight Waters ALKALINE PHOSPHAon 3 ALP [Catalytic activity/Vol] 96 U/L Normal 46-116 [facility] Comment on above: Performed By: #### C BC #### [facility] [address] [place] [address] Dr. Dwight Waters BILIRUBIN CONJUGATED (DIRECT )on 12-29-2022 BILI, CONJUGATED 0.3 mg/dL Critically high 0.0-0.2 [facility] Comment on above: Performed By: #### C BC #### [facility] [address] [place] [address] Dr. Dwight Waters BILIRUBIN TOTALon 12-29-2022 Bilirubin [Mass/Vol] 1.1 mg/dL Critically high 0.2-1.0 [facility] Comment on above: Performed By: #### C BC #### [facility] [address] [place] [address] Dr. Dwight Waters CBC AUTO DIFFon 12-29-2022 BASO # 0.1 103/ul Normal 0.0-0.1 [facility] Comment on above: Performed By: #### C MP #### [facility] [address] [place] [address] Dr. Dwight Waters Basophils/100 WBC (Bld) 0.8 % Normal 0.2-2.0 [facility] Comment on above: Performed By: #### C MP #### [facility] [address] [place] [address] Dr. Dwight Waters EO # 0.2 103/ul Normal 0.0-0.[address] [facility] Comment on above: Performed By: #### C MP #### [facility] [address] [place] [address] Dr. Dwight Waters Eosinophils/100 WBC (Bld) 3.0 % Normal 0.9-7.[address] [facility] Comment on above: Performed By: #### C MP #### [facility] [address] [place] [address] Dr. Dwight Waters Erythrocyte distribution width (RBC) [Ratio] 12.9 % Normal 11.0-15.[address] [facility] Comment on above: Performed By: #### C MP #### [facility] [address] [place] [address] Dr. Dwight Waters Hematocrit (Bld) [Volume fraction] 46.9 % Normal 42.0-54.0 [facility] Comment on above: Performed By: #### C MP #### [facility] [address] [place] [address] Dr. Dwight Waters Hemoglobin (Bld) [Mass/Vol] 16.1 g/dL Normal 14.0-18.0 [facility] Comment on above: Performed By: #### C MP #### [facility] [address] [place] [address] Dr. Dwight Waters IG # 0.01 10e3/ul Normal 0.00-0.03 [facility] Comment on above: Performed By: #### C MP #### [facility] [address] [place] [address] Dr. Dwight Waters IG % 0.2 % Normal 0.0-0.5 [facility] Comment on above: Performed By: #### C MP #### [facility] [address] [place] [address] Dr. Dwight Waters LYMPH # 1.8 103/ul Normal 1.2-3.[address] [facility] Comment on above: Performed By: #### C MP #### [facility] [address] [place] [address] Dr. Dwight Waters Lymphocytes/100 WBC (Bld) 27.9 % Normal 20.5-60.0 [facility] Comment on above: Performed By: #### C MP #### [facility] [address] [place] [address] Dr. Dwight Waters MANUAL DIFF REQ NO Normal [facility] Comment on above: Performed By: #### C MP #### [facility] [address] [place] [address] Dr. Dwight Waters MCH (RBC) [Entitic mass] 28.5 pg Normal 25.9-34.[address] [facility] Comment on above: Performed By: #### C MP #### [facility] [address] [place] [address] Dr. Dwight Waters MCHC (RBC) [Mass/Vol] 34.3 g/dL Normal 29.9-35.[address] [facility] Comment on above: Performed By: #### C MP #### [facility] [address] [place] [address] Dr. Dwight Waters MCV (RBC) [Entitic vol] 83.2 fL Normal 80.0-94.[address] [facility] Comment on above: Performed By: #### C MP #### [facility] [address] [place] [address] Dr. Dwight Waters MONO # 0.5 103/ul Normal 0.3-0.[address] [facility] Comment on above: Performed By: #### C MP #### [facility] [address] [address] [address] Dwight Waters Monocytes/100 WBC (Bld) 8.1 % Normal 1.7-12.[address] [facility] Comment on above: Performed By: #### C MP #### [facility] [address] [place] [address] Dr. Dwight Waters NEUT # 3.8 103/ul Normal 1.4-6.[address] [facility] Comment on above: Performed By: #### C MP #### [facility] [address] [place] [address] Dr. Dwight Waters Neutrophils/100 WBC (Bld) 60.0 % Normal 43.0-75.[address] [facility] Comment on above: Performed By: #### C MP #### [facility] [address] [place] [address] Dr. Dwight Waters Platelet mean volume (Bld) [Entitic vol] 9.2 fL Critically low 9.5-13.[address] [facility] Comment on above: Performed By: #### C MP #### [facility] [address] [place] [address] Dr. Dwight Waters PLT 225 103/ul Normal 150-[address] [facility] Comment on above: Performed By: #### C MP #### [facility] [address] [place] [address] Dr. Dwight Waters RBC 5.64 106/ul Normal 4.70-6.[address] [facility] Comment on above: Performed By: #### C MP #### [facility] [address] [place] [address] Dr. Dwight Waters WBC 6.3 103/ul Normal 4.0-11.0 [facility] Comment on above: Performed By: #### C MP #### [facility] [address] [place] [address] Dr. Dwight Waters GGTon 12-29-2022 Gamma glutamyl transferase [Catalytic activity/Vol] 24 U/L Normal 15-85 [facility] Comment on above: Performed By: #### C MP #### [facility] [address] [place] [address] Dr. Dwight Waters LIPID PROFILEon 12-29-2022 CHOL-HDL RATIO NORM SEE BELOW Normal [facility] Comment on above: Result Comment: 3.3 - 4.4 LOW RISK 4.4 - 7.1 AVERAGE RISK 7.1 - 11.0 MODERATE RISK >11.0 HIGH RISK Performed By: #### U RTPCR #### [facility] [address] [place] [address] Dr. Dwight Waters Cholesterol [Mass/Vol] 87 mg/dL Normal <=[address] [facility] Comment on above: Performed By: #### U RTPCR #### [facility] [address] [place] [address] Dr. Dwight Waters Cholesterol in HDL [Mass/Vol] 44 mg/dL Normal 40-60 [facility] Comment on above: Performed By: #### U RTPCR #### [facility] [address] [place] [address] Dr. Dwight Waters Cholesterol in LDL [Mass/Vol] 33.0 mg/dL Normal [facility] Comment on above: Performed By: #### U RTPCR #### [facility] [address] [place] [address] Dr. Dwight Waters Cholesterol.total/Ch olesterol in HDL [Mass ratio] 2.0 {ratio} Normal [facility] Comment on above: Performed By: #### U RTPCR #### [facility] [address] [place] [address] Dr. Dwight Waters HDL NORMAL > or = 60 mg/dl - LO W CARDIOVASCULAR RISK <40 mg/dl - HIGH CARDIOVASCULAR RISK Normal [facility] Comment on above: Performed By: #### U RTPCR #### [facility] [address] [place] [address] Dr. Dwight Waters LDL CALC NORMAL SEE BELOW Normal [facility] Comment on above: Result Comment: <100 mg/dl OPTIMAL 100 - 129 mg/dl NEAR OR ABOVE OPTIMAL 130 - 159 mg/dl BORDERLINE HIGH 160 - 189 mg/dl HIGH >190 mg/dl VERY HIGH Performed By: #### U RTPCR #### [facility] [address] [place] [address] Dr. Dwight Waters Triglyceride [Mass/Vol] 50 mg/dL Normal <=[address] [facility] Comment on above: Performed By: #### U RTPCR #### [facility] [address] [place] [address] Dr. Dwight Waters VLDL CALC 10.0 mg/dL Normal [facility] Comment on above: Performed By: #### U RTPCR #### [facility] [address] [place] [address] Dr. Dwight Waters MAGNESIUMon 12-29-2022 Magnesium [Mass/Vol] 1.6 mg/dL Critically low 1.8-2.[address] [facility] Comment on above: Performed By: #### C BC #### [facility] [address] [place] [address] Dr. Dwight Waters RENAL FUNCTION PANELon 12-29 Albumin [Mass/Vol] 3.9 g/dL Normal 3.4-5.[address] [facility] Comment on above: Performed By: #### C BC #### [facility] [address] [place] [address] Dr. Dwight Waters Calcium [Mass/Vol] 9.2 mg/dL Normal 8.5-10.[address] [facility] Comment on above: Performed By: #### C BC #### [facility] [address] [place] [address] Dr. Dwight Waters Chloride [Moles/Vol] 109 mmol/L Critically high 98-[address] [facility] Comment on above: Performed By: #### C BC #### [facility] [address] [place] [address] Dr. Dwight Waters CO2 [Moles/Vol] 27.0 mmol/L Normal 21.0-32.0 [facility] Comment on above: Performed By: #### C BC #### [facility] [address] [address] [address] Dwight Waters Creatinine [Mass/Vol] 1.02 mg/dL Normal 0.70-1.30 [facility] Comment on above: Performed By: #### C BC #### [facility] [address] [address] [address] Dwight Waters EGFR-AF [place] ISLANDER >60 Normal >=60 [facility] Comment on above: Performed By: #### C BC #### [facility] [address] [place] [address] Dr. Dwight Waters EGFR-NON AF [place] ISLANDER >60 Normal >=60 [facility] Comment on above: Performed By: #### C BC #### [facility] [address] [place] [address] Dr. Dwight Waters Glucose [Mass/Vol] 117 mg/dL Critically high 74-106 [facility] Comment on above: Performed By: #### C BC #### [facility] [address] [address] [address] Dwight Waters Phosphate [Mass/Vol] 3.2 mg/dL Normal 2.6-4.7 [facility] Comment on above: Performed By: #### C BC #### [facility] [address] [place] [address] Dr. Dwight Waters Potassium [Moles/Vol] 4.1 mmol/L Normal 3.5-5.1 [facility] Comment on above: Performed By: #### C BC #### [facility] [address] [address] [address] Dwight Waters Sodium [Moles/Vol] 144 mmol/L Normal 136-145 [facility] Comment on above: Performed By: #### C BC #### [facility] [address] [place] [address] Dr. Dwight Waters Urea nitrogen [Mass/Vol] 13.0 mg/dL Normal 7.0-18.0 [facility] Comment on above: Performed By: #### C BC #### [facility] [address] [place] [address] Dr. Dwight Waters SGOTon 12-29-2022 AST [Catalytic activity/Vol] 21 U/L Normal 15-[address] [facility] Comment on above: Performed By: #### C BC #### [facility] [address] [place] [address] Dr. Dwight Waters SGPTon 12-29-2022 ALT [Catalytic activity/Vol] 32 U/L Normal 16-63 [facility] Comment on above: Performed By: #### C BC #### [facility] [address] [place] [address] Dr. Dwight Waters URINE T PROTEIN CREAT RATIOo n 12-29-2022 Protein (U) [Mass/Vol] 14.3 mg/dL Critically high <=12.0 [facility] Comment on above: Performed By: #### U RTPCR #### [facility] [address] [place] [address] Dr. Dwight Waters UR PROT CREAT RAT 0.17 Normal [facility] Comment on above: Performed By: #### U RTPCR #### [facility] [address] [place] [address] Dr. Dwight Waters URINE CREAT 86.58 mg/dL Normal 20.00-300.00 [facility] Comment on above: Performed By: #### U RTPCR #### [facility] [address] [place] [address] Dr. Dwight Waters FK506 (TACROLIMUS) WHOLE BLO ODon 11-06-2022 Tacrolimus (FK506), Blood 4.9 ng/mL Normal 2.0-20.[address] [facility] Comment on above: Result Comment: Trou gh (immediately following transplant) 15.0 . Trough (steady state, 2 weeks or more after transplant): 3.0 - 8.0 . Performed by LC-MS/MS technology. Performed By: #### U RTPCR #### [facility] [address] [place] [address] Dr. Dwight Waters ALKALINE PHOSPHAon ALP [Catalytic activity/Vol] 86 U/L Normal 46-116 [facility] Comment on above: Performed By: #### U RTPCR #### [facility] [address] [place] [address] Dr. Dwight Waters BILIRUBIN CONJUGATED (DIRECT )on 11-04-2022 BILI, CONJUGATED 0.2 mg/dL Normal 0.0-0.[address] [facility] Comment on above: Performed By: #### U RTPCR #### [facility] [address] [place] [address] Dr. Dwight Waters BILIRUBIN TOTALon 11-04-2022 Bilirubin [Mass/Vol] 0.8 mg/dL Normal 0.2-1.[address] [facility] Comment on above: Performed By: #### U RTPCR #### [facility] [address] [place] [address] Dr. Dwight Waters CBC AUTO DIFFon 11-04-2022 BASO # 0.1 103/ul Normal 0.0-0.1 [facility] Comment on above: Performed By: #### U RTPCR #### [facility] [address] [place] [address] Dr. Dwight Waters Basophils/100 WBC (Bld) 0.9 % Normal 0.2-2.0 [facility] Comment on above: Performed By: #### U RTPCR #### [facility] [address] [place] [address] Dr. Dwight Waters EO # 0.2 103/ul Normal 0.0-0.[address] [facility] Comment on above: Performed By: #### U RTPCR #### [facility] [address] [place] [address] Dr. Dwight Waters Eosinophils/100 WBC (Bld) 3.7 % Normal 0.9-7.[address] [facility] Comment on above: Performed By: #### U RTPCR #### [facility] [address] [place] [address] Dr. Dwight Waters Erythrocyte distribution width (RBC) [Ratio] 12.9 % Normal 11.0-15.[address] [facility] Comment on above: Performed By: #### U RTPCR #### [facility] [address] [place] [address] Dr. Dwight Waters Hematocrit (Bld) [Volume fraction] 48.3 % Normal 42.0-54.0 [facility] Comment on above: Performed By: #### U RTPCR #### [facility] [address] [place] [address] Dr. Dwight Waters Hemoglobin (Bld) [Mass/Vol] 15.6 g/dL Normal 14.0-18.0 [facility] Comment on above: Performed By: #### U RTPCR #### [facility] [address] [place] [address] Dr. Dwight Waters IG # 0.01 10e3/ul Normal 0.00-0.03 [facility] Comment on above: Performed By: #### U RTPCR #### [facility] [address] [place] [address] Dr. Dwight Waters IG % 0.2 % Normal 0.0-0.5 [facility] Comment on above: Performed By: #### U RTPCR #### [facility] [address] [place] [address] Dr. Dwight Waters LYMPH # 1.9 103/ul Normal 1.2-3.8 [facility] Comment on above: Performed By: #### U RTPCR #### [facility] [address] [place] [address] Dr. Dwight Waters Lymphocytes/100 WBC (Bld) 33.0 % Normal 20.5-60.0 [facility] Comment on above: Performed By: #### U RTPCR #### [facility] [address] [place] [address] Dr. Dwight Waters MANUAL DIFF REQ NO Normal [facility] Comment on above: Performed By: #### U RTPCR #### [facility] [address] [place] [address] Dr. Dwight Waters MCH (RBC) [Entitic mass] 27.6 pg Normal 25.9-34.0 [facility] Comment on above: Performed By: #### U RTPCR #### [facility] [address] [address] [address] Dwight Waters MCHC (RBC) [Mass/Vol] 32.3 g/dL Normal 29.9-35.2 [facility] Comment on above: Performed By: #### U RTPCR #### [facility] [address] [address] [address] Dwight Waters MCV (RBC) [Entitic vol] 85.5 fL Normal 80.0-94.[address] [facility] Comment on above: Performed By: #### U RTPCR #### [facility] [address] [address] [address] Dwight Waters MONO # 0.5 103/ul Normal 0.3-0.8 [facility] Comment on above: Performed By: #### U RTPCR #### [facility] [address] [place] [address] Dr. Dwight Waters Monocytes/100 WBC (Bld) 8.8 % Normal 1.7-12.0 [facility] Comment on above: Performed By: #### U RTPCR #### [facility] [address] [place] [address] Dr. Dwight Waters NEUT # 3.1 103/ul Normal 1.4-6.5 [facility] Comment on above: Performed By: #### U RTPCR #### [facility] [address] [place] [address] Dr. Dwight Waters Neutrophils/100 WBC (Bld) 53.4 % Normal 43.0-75.[address] [facility] Comment on above: Performed By: #### U RTPCR #### [facility] [address] [place] [address] Dr. Dwight Waters Platelet mean volume (Bld) [Entitic vol] 9.2 fL Critically low 9.5-13.5 [facility] Comment on above: Performed By: #### U RTPCR #### [facility] [address] [place] [address] Dr. Dwight Waters PLT 255 103/ul Normal 150-[address] [facility] Comment on above: Performed By: #### U RTPCR #### [facility] [address] [place] [address] Dr. Dwight Waters RBC 5.65 106/ul Normal 4.70-6.[address] [facility] Comment on above: Performed By: #### U RTPCR #### [facility] [address] [place] [address] Dr. Dwight Waters WBC 5.7 103/ul Normal 4.0-11.[address] [facility] Comment on above: Performed By: #### U RTPCR #### [facility] [address] [place] [address] Dr. Dwight Waters GGTon 11-04-2022 Gamma glutamyl transferase [Catalytic activity/Vol] 22 U/L Normal 15-[address] [facility] Comment on above: Performed By: #### U RTPCR #### [facility] [address] [place] [address] Dr. Dwight Waters MAGNESIUMon 11-04-2022 Magnesium [Mass/Vol] 1.8 mg/dL Normal 1.8-2.[address] [facility] Comment on above: Performed By: #### U RTPCR #### [facility] [address] [place] [address] Dr. Dwight Waters RENAL FUNCTION PANELon 11-04 Albumin [Mass/Vol] 3.8 g/dL Normal 3.4-5.0 [facility] Comment on above: Performed By: #### U RTPCR #### [facility] [address] [place] [address] Dr. Dwight Waters Calcium [Mass/Vol] 9.3 mg/dL Normal 8.5-10.[address] [facility] Comment on above: Performed By: #### U RTPCR #### [facility] [address] [place] [address] Dr. Dwight Waters Chloride [Moles/Vol] 107 mmol/L Normal 98-[address] [facility] Comment on above: Performed By: #### U RTPCR #### [facility] [address] [place] [address] Dr. Dwight Waters CO2 [Moles/Vol] 29.2 mmol/L Normal 21.0-32.0 [facility] Comment on above: Performed By: #### U RTPCR #### [facility] [address] [address] [address] Dwight Waters Creatinine [Mass/Vol] 1.07 mg/dL Normal 0.70-1.[address] [facility] Comment on above: Performed By: #### U RTPCR #### [facility] [address] [address] [address] Dwight Waters EGFR-AF [place] ISLANDER >60 Normal >=[address] [facility] Comment on above: Performed By: #### U RTPCR #### [facility] [address] [place] [address] Dr. Dwight aWters EGFR-NON AF [place] ISLANDER >60 Normal >=60 [facility] Comment on above: Performed By: #### U RTPCR #### [facility] [address] [place] [address] Dr. Dwight Waters Glucose [Mass/Vol] 106 mg/dL Normal 74-106 [facility] Comment on above: Performed By: #### U RTPCR #### [facility] [address] [place] [address] Dr. Dwight Waters Phosphate [Mass/Vol] 2.8 mg/dL Normal 2.6-4.7 [facility] Comment on above: Performed By: #### U RTPCR #### [facility] [address] [place] [address] Dr. Dwight Waters Potassium [Moles/Vol] 4.1 mmol/L Normal 3.5-5.[address] [facility] Comment on above: Performed By: #### U RTPCR #### [facility] [address] [place] [address] Dr. Dwight Waters Sodium [Moles/Vol] 143 mmol/L Normal 136-[address] [facility] Comment on above: Performed By: #### U RTPCR #### [facility] [address] [place] [address] Dr. Dwight Waters Urea nitrogen [Mass/Vol] 12.0 mg/dL Normal 7.0-18.[address] [facility] Comment on above: Performed By: #### U RTPCR #### [facility] [address] [place] [address] Dr. Dwight Watesr SGOTon 11-04-2022 AST [Catalytic activity/Vol] 19 U/L Normal 15-37 [facility] Comment on above: Performed By: #### U RTPCR #### [facility] [address] [place] [address] Dr. Dwight Waters SGPTon 11-04-2022 ALT [Catalytic activity/Vol] 28 U/L Normal 16-63 [facility] Comment on above: Performed By: #### U RTPCR #### [facility] [address] [place] [address] Dr. wDight Waters URINE T PROTEIN CREAT RATIOo n 11-04-2022 Protein (U) [Mass/Vol] 10.7 mg/dL Normal <=12.0 [facility] Comment on above: Performed By: #### U RTPCR #### [facility] [address] [place] [address] Dr. Dwight Waters UR PROT CREAT RAT 0.13 Normal [facility] Comment on above: Performed By: #### U RTPCR #### [facility] [address] [place] [address] Dr. Dwight Waters URINE CREAT 84.50 mg/dL Normal 20.00-300.00 [facility] Comment on above: Performed By: #### U RTPCR #### [facility] [address] [place] [address] Dr. Dwight Waters FK506 (TACROLIMUS) WHOLE BLO ODon 09-18-2022 Tacrolimus (FK506), Blood 4.6 ng/mL Normal 2.0-20.0 [facility] Comment on above: Result Comment: Trou gh (immediately following transplant) 15.0 . Trough (steady state, 2 weeks or more after transplant): 3.0 - 8.0 . Performed by LC-MS/MS technology. Performed By: #### U RTPCR #### [facility] [address] [place] [address] Dr. Dwight Waters BK VIRUS PCR QUANTon 022 BKV DNA QUANT PCR PLASMA Negative Normal Negative [facility] Comment on above: Result Comment: No B K DNA detected. . The linear range of the assay is 22 - 100,000,000 IU/mL. Performed By: #### U RTPCR #### [facility] [address] [place] [address] Dr. Dwight Waters Log10 BKV DNA Plasma Normal [facility] Comment on above: Performed By: #### U RTPCR #### [facility] [address] [place] [address] Dr. Dwight Waters ALKALINE PHOSPHAon ALP [Catalytic activity/Vol] 92 U/L Normal 46-[address] [facility] Comment on above: Performed By: #### U RTPCR #### [facility] [address] [place] [address] Dr. Dwight Waters BILIRUBIN CONJUGATED (DIRECT )on 09-15-2022 BILI, CONJUGATED 0.3 mg/dL Critically high 0.0-0.2 [facility] Comment on above: Performed By: #### U RTPCR #### [facility] [address] [place] [address] Dr. Dwight Waters BILIRUBIN TOTALon 09-15-2022 Bilirubin [Mass/Vol] 1.1 mg/dL Critically high 0.2-1.0 [facility] Comment on above: Performed By: #### U RTPCR #### [facility] [address] [place] [address] Dr. Dwight Waters CBC AUTO DIFFon 09-15-2022 BASO # 0.1 103/ul Normal 0.0-0.1 [facility] Comment on above: Performed By: #### C BC #### [facility] [address] [place] [address] Dr. Dwight Waters Basophils/100 WBC (Bld) 0.8 % Normal 0.2-2.[address] [facility] Comment on above: Performed By: #### C BC #### [facility] [address] [place] [address] Dr. Dwight Waters EO # 0.2 103/ul Normal 0.0-0.[address] [facility] Comment on above: Performed By: #### C BC #### [facility] [address] [place] [address] Dr. Dwight Waters Eosinophils/100 WBC (Bld) 3.5 % Normal 0.9-7.0 [facility] Comment on above: Performed By: #### C BC #### [facility] [address] [place] [address] Dr. Dwight Waters Erythrocyte distribution width (RBC) [Ratio] 13.0 % Normal 11.0-15.0 [facility] Comment on above: Performed By: #### C BC #### [facility] [address] [place] [address] Dr. Dwight Waters Hematocrit (Bld) [Volume fraction] 50.0 % Normal 42.0-54.0 [facility] Comment on above: Performed By: #### C BC #### [facility] [address] [place] [address] Dr. Dwight Waters Hemoglobin (Bld) [Mass/Vol] 16.0 g/dL Normal 14.0-18.0 [facility] Comment on above: Performed By: #### C BC #### [facility] [address] [place] [address] Dr. Dwight Waters IG # 0.02 10e3/ul Normal 0.00-0.03 [facility] Comment on above: Performed By: #### C BC #### [facility] [address] [place] [address] Dr. Dwight Waters IG % 0.3 % Normal 0.0-0.[address] [facility] Comment on above: Performed By: #### C BC #### [facility] [address] [place] [address] Dr. Dwight Waters LYMPH # 1.8 103/ul Normal 1.2-3.[address] [facility] Comment on above: Performed By: #### C BC #### [facility] [address] [place] [address] Dr. Dwight Waters Lymphocytes/100 WBC (Bld) 26.5 % Normal 20.5-60.0 [facility] Comment on above: Performed By: #### C BC #### [facility] [address] [place] [address] Dr. Dwight Waters MANUAL DIFF REQ NO Normal [facility] Comment on above: Performed By: #### C BC #### [facility] [address] [place] [address] Dr. Dwight Waters MCH (RBC) [Entitic mass] 28.1 pg Normal 25.9-34.0 [facility] Comment on above: Performed By: #### C BC #### [facility] [address] [place] [address] Dr. Dwight Waters MCHC (RBC) [Mass/Vol] 32.0 g/dL Normal 29.9-35.[address] [facility] Comment on above: Performed By: #### C BC #### [facility] [address] [place] [address] Dr. Dwight Waters MCV (RBC) [Entitic vol] 87.9 fL Normal 80.0-94.[address] [facility] Comment on above: Performed By: #### C BC #### [facility] [address] [place] [address] Dr. Dwight Waters MONO # 0.5 103/ul Normal 0.3-0.[address] [facility] Comment on above: Performed By: #### C BC #### [facility] [address] [place] [address] Dr. Dwight Waters Monocytes/100 WBC (Bld) 8.1 % Normal 1.7-12.[address] [facility] Comment on above: Performed By: #### C BC #### [facility] [address] [place] [address] Dr. Dwight Waters NEUT # 4.0 103/ul Normal 1.4-6.[address] [facility] Comment on above: Performed By: #### C BC #### [facility] [address] [place] [address] Dr. Dwight Waters Neutrophils/100 WBC (Bld) 60.8 % Normal 43.0-75.[address] [facility] Comment on above: Performed By: #### C BC #### [facility] [address] [place] [address] Dr. Dwight Waters Platelet mean volume (Bld) [Entitic vol] 9.4 fL Critically low 9.5-13.[address] [facility] Comment on above: Performed By: #### C BC #### [facility] [address] [place] [address] Dr. Dwight Waters PLT 265 103/ul Normal 150-[address] [facility] Comment on above: Performed By: #### C BC #### [facility] [address] [place] [address] Dr. Dwight Waters RBC 5.69 106/ul Normal 4.70-6.[address] [facility] Comment on above: Performed By: #### C BC #### [facility] [address] [place] [address] Dr. Dwight Waters WBC 6.6 103/ul Normal 4.0-11.[address] [facility] Comment on above: Performed By: #### C BC #### [facility] [address] [place] [address] Dr. Dwight Waters GGTon 09-15-2022 Gamma glutamyl transferase [Catalytic activity/Vol] 23 U/L Normal 15-[address] [facility] Comment on above: Performed By: #### U RTPCR #### [facility] [address] [place] [address] Dr. Dwight Waters MAGNESIUMon 09-15-2022 Magnesium [Mass/Vol] 1.8 mg/dL Normal 1.8-2.[address] [facility] Comment on above: Performed By: #### U RTPCR #### [facility] [address] [place] [address] Dr. Dwight Waters RENAL FUNCTION PANELon 09-15 Albumin [Mass/Vol] 4.1 g/dL Normal 3.4-5.[address] [facility] Comment on above: Performed By: #### C BC #### [facility] [address] [place] [address] Dr. Dwight Waters Calcium [Mass/Vol] 9.3 mg/dL Normal 8.5-10.[address] [facility] Comment on above: Performed By: #### C BC #### [facility] [address] [address] [address] Dwight Waters Chloride [Moles/Vol] 107 mmol/L Normal 98-107 [facility] Comment on above: Performed By: #### C BC #### [facility] [address] [address] [address] Dwight Waters CO2 [Moles/Vol] 25.6 mmol/L Normal 21.0-32.0 [facility] Comment on above: Performed By: #### C BC #### [facility] [address] [place] [address] Dr. Dwight Waters Creatinine [Mass/Vol] 1.01 mg/dL Normal 0.70-1.30 [facility] Comment on above: Performed By: #### C BC #### [facility] [address] [place] [address] Dr. Dwight Waters EGFR-AF [place] ISLANDER >60 Normal >=60 [facility] Comment on above: Performed By: #### C BC #### [facility] [address] [place] [address] Dr. Dwight Waters EGFR-NON AF [place] ISLANDER >60 Normal >=60 [facility] Comment on above: Performed By: #### C BC #### [facility] [address] [place] [address] Dr. Dwight Waters Glucose [Mass/Vol] 119 mg/dL Critically high 74-106 [facility] Comment on above: Performed By: #### C BC #### [facility] [address] [place] [address] Dr. Dwight Waters Phosphate [Mass/Vol] 2.8 mg/dL Normal 2.6-4.7 [facility] Comment on above: Performed By: #### C BC #### [facility] [address] [place] [address] Dr. Dwight Waters Potassium [Moles/Vol] 4.0 mmol/L Normal 3.5-5.[address] [facility] Comment on above: Performed By: #### C BC #### [facility] [address] [place] [address] Dr. Dwight Waters Sodium [Moles/Vol] 141 mmol/L Normal 136-[address] [facility] Comment on above: Performed By: #### C BC #### [facility] [address] [place] [address] Dr. Dwight Waters Urea nitrogen [Mass/Vol] 15.0 mg/dL Normal 7.0-18.[address] [facility] Comment on above: Performed By: #### C BC #### [facility] [address] [place] [address] Dr. Dwight Waters SGOTon 09-15-2022 AST [Catalytic activity/Vol] 18 U/L Normal 15-[address] [facility] Comment on above: Performed By: #### U RTPCR #### [facility] [address] [place] [address] Dr. Dwight Waters SGPTon 09-15-2022 ALT [Catalytic activity/Vol] 32 U/L Normal 16-[address] [facility] Comment on above: Performed By: #### C BC #### [facility] [address] [place] [address] Dr. Dwight Waters URINE T PROTEIN CREAT RATIOo n 09-15-2022 Protein (U) [Mass/Vol] 14.1 mg/dL Critically high <=12.0 [facility] Comment on above: Performed By: #### U RTPCR #### [facility] [address] [place] [address] Dr. Dwight Waters UR PROT CREAT RAT 0.[address] [facility] Comment on above: Performed By: #### U RTPCR #### [facility] [address] [place] [address] Dr. Dwight Waters URINE CREAT 98.89 mg/dL Normal 20.00-300.[address] [facility] Comment on above: Performed By: #### U RTPCR #### [facility] [address] [place] [address] Dr. Dwight Waters US CAROTID ART BILon [...] MÓNICA JIMENEZ Date: 2022-08-28 13:[address] [facility] FK506 (TACROLIMUS) WHOLE BLO ODon 08-17-2022 Tacrolimus (FK506), Blood 9.9 ng/mL Normal 2.0-20.0 [facility] Comment on above: Result Comment: Trou gh (immediately following transplant) 15.0 . Trough (steady state, 2 weeks or more after transplant): 3.0 - 8.0 . Performed by LC-MS/MS technology. Performed By: #### F [id number] #### [facility] [address] [place] [address] Dr. Dwight Waters BK VIRUS PCR QUANTon 022 BKV DNA QUANT PCR PLASMA Negative Normal Negative [facility] Comment on above: Result Comment: No B K DNA detected. . The linear range of the assay is 22 - 100,000,000 IU/mL. Performed By: #### U RTPCR #### [facility] [address] [place] [address] Dr. Dwight Waters Log10 BKV DNA Plasma Normal [facility] Comment on above: Performed By: #### U RTPCR #### [facility] [address] [place] [address] Dr. Dwight Waters ALBUMINon 08-14-2022 Albumin [Mass/Vol] 4.2 g/dL Normal 3.4-5.0 [facility] Comment on above: Performed By: #### F [id number] #### [facility] [address] [place] [address] Dr. Dwight Waters ALKALINE PHOSPHAon ALP [Catalytic activity/Vol] 92 U/L Normal 46-116 [facility] Comment on above: Performed By: #### C BC #### [facility] [address] [place] [address] Dr. Dwight Waters BILIRUBIN CONJUGATED (DIRECT )on 08-14-2022 BILI, CONJUGATED 0.3 mg/dL Critically high 0.0-0.2 [facility] Comment on above: Performed By: #### F [id number] #### [facility] [address] [place] [address] Dr. Dwight Waters BILIRUBIN TOTALon 08-14-2022 Bilirubin [Mass/Vol] 1.5 mg/dL Critically high 0.2-1.[address] [facility] Comment on above: Performed By: #### F [id number] #### [facility] [address] [place] [address] Dr. Dwight Waters BUNon 08-14-2022 Urea nitrogen [Mass/Vol] 11.0 mg/dL Normal 7.0-18.[address] [facility] Comment on above: Performed By: #### C BC #### [facility] [address] [place] [address] Dr. Dwight Waters CALCIUMon 08-14-2022 Calcium [Mass/Vol] 9.4 mg/dL Normal 8.5-10.1 [facility] Comment on above: Performed By: #### F [id number] #### [facility] [address] [place] [address] Dr. Dwight Waters CBC AUTO DIFFon 08-14-2022 BASO # 0.0 103/ul Normal 0.0-0.1 [facility] Comment on above: Performed By: #### C MP #### [facility] [address] [place] [address] Dr. Dwight Waters Basophils/100 WBC (Bld) 0.5 % Normal 0.2-2.[address] [facility] Comment on above: Performed By: #### C MP #### [facility] [address] [place] [address] Dr. Dwight Waters EO # 0.2 103/ul Normal 0.0-0.7 [facility] Comment on above: Performed By: #### C MP #### [facility] [address] [place] [address] Dr. Dwight Waters Eosinophils/100 WBC (Bld) 2.6 % Normal 0.9-7.0 [facility] Comment on above: Performed By: #### C MP #### [facility] [address] [place] [address] Dr. Dwight Waters Erythrocyte distribution width (RBC) [Ratio] 13.1 % Normal 11.0-15.0 [facility] Comment on above: Performed By: #### C MP #### [facility] [address] [place] [address] Dr. Dwight Waters Hematocrit (Bld) [Volume fraction] 47.0 % Normal 42.0-54.0 [facility] Comment on above: Performed By: #### C MP #### [facility] [address] [place] [address] Dr. Dwight Waters Hemoglobin (Bld) [Mass/Vol] 15.3 g/dL Normal 14.0-18.0 [facility] Comment on above: Performed By: #### C MP #### [facility] [address] [place] [address] Dr. Dwight Waters IG # 0.01 10e3/ul Normal 0.00-0.03 [facility] Comment on above: Performed By: #### C MP #### [facility] [address] [place] [address] Dr. Dwight Waters IG % 0.1 % Normal 0.0-0.5 [facility] Comment on above: Performed By: #### C MP #### [facility] [address] [place] [address] Dr. Dwight Waters LYMPH # 2.3 103/ul Normal 1.2-3.8 [facility] Comment on above: Performed By: #### C MP #### [facility] [address] [place] [address] Dr. Dwight Waters Lymphocytes/100 WBC (Bld) 29.8 % Normal 20.5-60.0 [facility] Comment on above: Performed By: #### C MP #### [facility] [address] [place] [address] Dr. Dwight Waters MANUAL DIFF REQ NO Normal [facility] Comment on above: Performed By: #### C MP #### [facility] [address] [address] [address] Dwight Waters MCH (RBC) [Entitic mass] 28.2 pg Normal 25.9-34.0 [facility] Comment on above: Performed By: #### C MP #### [facility] [address] [address] [address] Dwight Waters MCHC (RBC) [Mass/Vol] 32.6 g/dL Normal 29.9-35.[address] [facility] Comment on above: Performed By: #### C MP #### [facility] [address] [place] [address] Dr. Dwight Waters MCV (RBC) [Entitic vol] 86.7 fL Normal 80.0-94.0 [facility] Comment on above: Performed By: #### C MP #### [facility] [address] [place] [address] Dr. Dwight Waters MONO # 0.7 103/ul Normal 0.3-0.[address] [facility] Comment on above: Performed By: #### C MP #### [facility] [address] [place] [address] Dr. Dwight Waters Monocytes/100 WBC (Bld) 8.5 % Normal 1.7-12.0 [facility] Comment on above: Performed By: #### C MP #### [facility] [address] [place] [address] Dr. Dwight Waters NEUT # 4.5 103/ul Normal 1.4-6.[address] [facility] Comment on above: Performed By: #### C MP #### [facility] [address] [place] [address] Dr. Dwight Waters Neutrophils/100 WBC (Bld) 58.5 % Normal 43.0-75.[address] [facility] Comment on above: Performed By: #### C MP #### [facility] [address] [place] [address] Dr. Dwight Waters Platelet mean volume (Bld) [Entitic vol] 9.7 fL Normal 9.5-13.[address] [facility] Comment on above: Performed By: #### C MP #### [facility] [address] [address] [address] Dwight Waters PLT 266 103/ul Normal 150-[address] [facility] Comment on above: Performed By: #### C MP #### [facility] [address] [address] [address] Dwight Waters RBC 5.42 106/ul Normal 4.70-6.[address] [facility] Comment on above: Performed By: #### C MP #### [facility] [address] [address] [address] Dwight Waters WBC 7.6 103/ul Normal 4.0-11.[address] [facility] Comment on above: Performed By: #### C MP #### [facility] [address] [place] [address] Dr. Dwight Waters CHLORIDEon 08-14-2022 Chloride [Moles/Vol] 104 mmol/L Normal 98-[address] [facility] Comment on above: Performed By: #### C BC #### [facility] [address] [place] [address] Dr. Dwight Waters CO2on 08-14-2022 CO2 [Moles/Vol] 27.9 mmol/L Normal 21.0-32.0 [facility] Comment on above: Performed By: #### C BC #### [facility] [address] [place] [address] Dr. Dwight Waters CREATININEon 08-14-2022 Creatinine [Mass/Vol] 1.08 mg/dL Normal 0.70-1.[address] [facility] Comment on above: Performed By: #### C BC #### [facility] [address] [place] [address] Dr. Dwight Waters EGFR-AF COOK ISLANDER >60 Normal >=[address] [facility] Comment on above: Performed By: #### C BC #### [facility] [address] [place] [address] Dr. Dwight Waters EGFR-NON AF COOK ISLANDER >60 Normal >=[address] [facility] Comment on above: Performed By: #### C BC #### [facility] [address] [place] [address] Dr. Dwight Waters GGTon 08-14-2022 Gamma glutamyl transferase [Catalytic activity/Vol] 24 U/L Normal 15-85 [facility] Comment on above: Performed By: #### F [id number] #### [facility] [address] [place] [address] Dr. Dwight Waters GLUCOSE BLOODon 08-14-2022 Glucose [Mass/Vol] 111 mg/dL Critically high 74-106 [facility] Comment on above: Performed By: #### C BC #### [facility] [address] [place] [address] Dr. Dwight Waters MAGNESIUMon 08-14-2022 Magnesium [Mass/Vol] 1.4 mg/dL Critically low 1.8-2.4 [facility] Comment on above: Performed By: #### C BC #### [facility] [address] [place] [address] Dr. Dwight Waters NAon 08-14-2022 Sodium [Moles/Vol] 140 mmol/L Normal 136-145 [facility] Comment on above: Performed By: #### F [id number] #### [facility] [address] [place] [address] Dr. Dwight Waters PHOSPHORUSon 08-14-2022 Phosphate [Mass/Vol] 3.1 mg/dL Normal 2.6-4.7 [facility] Comment on above: Performed By: #### C BC #### [facility] [address] [place] [address] Dr. Dwight Waters POTASSIUMon 08-14-2022 Potassium [Moles/Vol] 3.5 mmol/L Normal 3.5-5.1 [facility] Comment on above: Performed By: #### C BC #### [facility] [address] [place] [address] Dr. Dwight Waters SGOTon 08-14-2022 AST [Catalytic activity/Vol] 17 U/L Normal 15-37 [facility] Comment on above: Performed By: #### F [id number] #### [facility] [address] [place] [address] Dr. Dwight Waters SGPTon 08-14-2022 ALT [Catalytic activity/Vol] 22 U/L Normal 16-63 [facility] Comment on above: Performed By: #### F [id number] #### [facility] [address] [place] [address] Dr. Dwight Waters URINE T PROTEIN CREAT RATIOo n 08-14-2022 Protein (U) [Mass/Vol] 10.7 mg/dL Normal <=12.0 [facility] Comment on above: Performed By: #### F [id number] #### [facility] [address] [place] [address] Dr. Dwight Waters UR PROT CREAT RAT 0.10 Normal [facility] Comment on above: Performed By: #### F K506T #### [facility] [address] [place] [address] Dr. Dwight Waters URINE CREAT 104.28 mg/dL Normal 20.00-300.00 [facility] Comment on above: Performed By: #### F [id number] #### [facility] [address] [place] [address] Dr. Dwight Waters NEPHROSTOMY TUBE REMOVALon 0 [...] Assisting physician present for entire procedure: yes [facility] Radiology Study observation (narrative) [facility] FK506 (TACROLIMUS) WHOLE BLO ODon 07-06-2022 Tacrolimus (FK506), Blood 9.5 ng/mL Normal 2.0-20.0 [facility] Comment on above: Result Comment: Trou gh (immediately following transplant) 15.0 . Trough (steady state, 2 weeks or more after transplant): 3.0 - 8.0 . Performed by LC-MS/MS technology. Performed By: #### C MP #### [facility] [address] [place] [address] Dr. Dwight Waters ALBUMINon 07-03-2022 Albumin [Mass/Vol] 3.7 g/dL Normal 3.4-5.0 [facility] Comment on above: Performed By: #### U RTPCR #### [facility] [address] [place] [address] Dr. Dwight Waters ALKALINE PHOSPHAon ALP [Catalytic activity/Vol] 76 U/L Normal 46-116 [facility] Comment on above: Performed By: #### U RTPCR #### [facility] [address] [place] [address] Dr. Dwight Waters BILIRUBIN CONJUGATED (DIRECT )on 07-03-2022 BILI, CONJUGATED 0.3 mg/dL Critically high 0.0-0.2 [facility] Comment on above: Performed By: #### C BC #### [facility] [address] [place] [address] Dr. Dwight Waters BILIRUBIN TOTALon 07-03-2022 Bilirubin [Mass/Vol] 1.4 mg/dL Critically high 0.2-1.0 [facility] Comment on above: Performed By: #### C BC #### [facility] [address] [place] [address] Dr. Dwight Waters BUNon 07-03-2022 Urea nitrogen [Mass/Vol] 15.0 mg/dL Normal 7.0-18.[address] [facility] Comment on above: Performed By: #### C BC #### [facility] [address] [place] [address] Dr. Dwight Waters CALCIUMon 07-03-2022 Calcium [Mass/Vol] 9.4 mg/dL Normal 8.5-10.1 [facility] Comment on above: Performed By: #### U RTPCR #### [facility] [address] [place] [address] Dr. Dwight Waters CBC AUTO DIFFon 07-03-2022 BASO # 0.0 103/ul Normal 0.0-0.1 [facility] Comment on above: Performed By: #### U RTPCR #### [facility] [address] [place] [address] Dr. Dwight Waters Basophils/100 WBC (Bld) 0.6 % Normal 0.2-2.0 [facility] Comment on above: Performed By: #### U RTPCR #### [facility] [address] [place] [address] Dr. Dwight Waters EO # 0.2 103/ul Normal 0.0-0.7 [facility] Comment on above: Performed By: #### U RTPCR #### [facility] [address] [place] [address] Dr. Dwight Waters Eosinophils/100 WBC (Bld) 3.5 % Normal 0.9-7.[address] [facility] Comment on above: Performed By: #### U RTPCR #### [facility] [address] [place] [address] Dr. Dwight Waters Erythrocyte distribution width (RBC) [Ratio] 12.9 % Normal 11.0-15.0 [facility] Comment on above: Performed By: #### U RTPCR #### [facility] [address] [place] [address] Dr. Dwight Waters Hematocrit (Bld) [Volume fraction] 44.2 % Normal 42.0-54.0 [facility] Comment on above: Performed By: #### U RTPCR #### [facility] [address] [place] [address] Dr. Dwight Waters Hemoglobin (Bld) [Mass/Vol] 14.6 g/dL Normal 14.0-18.0 [facility] Comment on above: Performed By: #### U RTPCR #### [facility] [address] [place] [address] Dr. Dwight Waters IG # 0.02 10e3/ul Normal 0.00-0.03 [facility] Comment on above: Performed By: #### U RTPCR #### [facility] [address] [place] [address] Dr. Dwight Waters IG % 0.3 % Normal 0.0-0.5 [facility] Comment on above: Performed By: #### U RTPCR #### [facility] [address] [place] [address] Dr. Dwight Waters LYMPH # 2.0 103/ul Normal 1.2-3.8 [facility] Comment on above: Performed By: #### U RTPCR #### [facility] [address] [place] [address] Dr. Dwight Waters Lymphocytes/100 WBC (Bld) 28.4 % Normal 20.5-60.0 [facility] Comment on above: Performed By: #### U RTPCR #### [facility] [address] [place] [address] Dr. Dwight Waters MANUAL DIFF REQ NO Normal [facility] Comment on above: Performed By: #### U RTPCR #### [facility] [address] [place] [address] Dr. Dwight Waters MCH (RBC) [Entitic mass] 28.6 pg Normal 25.9-34.0 [facility] Comment on above: Performed By: #### U RTPCR #### [facility] [address] [place] [address] Dr. Dwight Waters MCHC (RBC) [Mass/Vol] 33.0 g/dL Normal 29.9-35.2 [facility] Comment on above: Performed By: #### U RTPCR #### [facility] [address] [address] [address] Dwight Waters MCV (RBC) [Entitic vol] 86.7 fL Normal 80.0-94.0 [facility] Comment on above: Performed By: #### U RTPCR #### [facility] [address] [address] [address] Dwight Waters MONO # 0.6 103/ul Normal 0.3-0.8 [facility] Comment on above: Performed By: #### U RTPCR #### [facility] [address] [address] [address] Dwight Waters Monocytes/100 WBC (Bld) 9.1 % Normal 1.7-12.0 [facility] Comment on above: Performed By: #### U RTPCR #### [facility] [address] [place] [address] Dr. Dwight Waters NEUT # 4.0 103/ul Normal 1.4-6.5 [facility] Comment on above: Performed By: #### U RTPCR #### [facility] [address] [place] [address] Dr. Dwight Waters Neutrophils/100 WBC (Bld) 58.1 % Normal 43.0-75.0 [facility] Comment on above: Performed By: #### U RTPCR #### [facility] [address] [address] [address] Dwight Waters Platelet mean volume (Bld) [Entitic vol] 9.5 fL Normal 9.5-13.5 [facility] Comment on above: Performed By: #### U RTPCR #### [facility] [address] [place] [address] Dr. Dwight Waters PLT 292 103/ul Normal 150-[address] [facility] Comment on above: Performed By: #### U RTPCR #### [facility] [address] [place] [address] Dr. Dwight Waters RBC 5.10 106/ul Normal 4.70-6.[address] [facility] Comment on above: Performed By: #### U RTPCR #### [facility] [address] [place] [address] Dr. Dwight Waters WBC 6.9 103/ul Normal 4.0-11.0 [facility] Comment on above: Performed By: #### U RTPCR #### [facility] [address] [place] [address] Dr. Dwight Waters CHLORIDEon 07-03-2022 Chloride [Moles/Vol] 108 mmol/L Critically high 98-[address] [facility] Comment on above: Performed By: #### C BC #### [facility] [address] [place] [address] Dr. Dwight Waters CO2on 07-03-2022 CO2 [Moles/Vol] 25.2 mmol/L Normal 21.0-32.0 [facility] Comment on above: Performed By: #### C BC #### [facility] [address] [place] [address] Dr. Dwight Waters CREATININEon 07-03-2022 Creatinine [Mass/Vol] 1.03 mg/dL Normal 0.70-1.[address] [facility] Comment on above: Performed By: #### U RTPCR #### [facility] [address] [place] [address] Dr. Dwight Waters EGFR-AF [place]OOK ISLANDER >60 Normal >=60 [facility] Comment on above: Performed By: #### U RTPCR #### [facility] [address] [place] [address] Dr. Dwight Waters EGFR-NON AF [place] ISLANDER >60 Normal >=[address] [facility] Comment on above: Performed By: #### U RTPCR #### [facility] [address] [place] [address] Dr. Dwight Waters GGTon 07-03-2022 Gamma glutamyl transferase [Catalytic activity/Vol] 31 U/L Normal 15-[address] [facility] Comment on above: Performed By: #### U RTPCR #### [facility] [address] [place] [address] Dr. Dwight Waters GLUCOSE BLOODon 07-03-2022 Glucose [Mass/Vol] 119 mg/dL Critically high 74-106 T [facility] Comment on above: Performed By: #### U RTPCR #### [facility] [address] [place] [address] Dr. Dwight Waters MAGNESIUMon 07-03-2022 Magnesium [Mass/Vol] 1.4 mg/dL Critically low 1.8-2.4 [facility] Comment on above: Performed By: #### C BC #### [facility] [address] [place] [address] Dr. Dwight Waters NAon 07-03-2022 Sodium [Moles/Vol] 142 mmol/L Normal 136-145 [facility] Comment on above: Performed By: #### C MP #### [facility] [address] [place] [address] Dr. Dwight Waters PHOSPHORUSon 07-03-2022 Phosphate [Mass/Vol] 3.4 mg/dL Normal 2.6-4.7 [facility] Comment on above: Performed By: #### C BC #### [facility] [address] [place] [address] Dr. Dwight Waters POTASSIUMon 07-03-2022 Potassium [Moles/Vol] 4.1 mmol/L Normal 3.5-5.[address] [facility] Comment on above: Performed By: #### C BC #### [facility] [address] [place] [address] Dr. Dwight Waters SGOTon 07-03-2022 AST [Catalytic activity/Vol] 14 U/L Critically low 15-[address] [facility] Comment on above: Performed By: #### C BC #### [facility] [address] [place] [address] Dr. Dwight Waters SGPTon 07-03-2022 ALT [Catalytic activity/Vol] 25 U/L Normal 16-[address] [facility] Comment on above: Performed By: #### C BC #### [facility] [address] [place] [address] Dr. Dwight Waters US KIDNEYSon 07-03-2022 US KIDNEYS Ultrasound kidneys, bilateral HISTORY: Transplant of kidney , pain in the right lower quadrant COMPARISON: None. TECHNIQUE: Transabdominal ultrasound imaging of both kidneys was performed. FINDINGS: The knik kidneys are diffusely echogenic and atrophic with cortical thinning. The right kidney measures 8.3 x 3.5 x 4.07 m and the left measures 9.9 x 3.8 x 3.6 cm. No hydronephrosis of the knik kidneys. There is a renal transplant in [...] stone involving the renal transplant. 2. Atrophic knik kidneys. 3. Normal bladder. Electronically authenticated by: ARCELIA PIZARRO Date: 2022-07-03 17:22 Normal [facility] CT Abdomen and Pelvis WO con traston 06-27-2022 IMPRESSION: 1. Both knik kidneys are atrophic with improvement in right-sided [...] Adrenals: Adrenal glands are unremarkable. Kidneys: Both knik kidneys are atrophic. Interval improvement in right knik kidney hydronephrosis since May 15, 2022. Status [...] Adrenals: Adrenal glands are unremarkable. Kidneys: Both knik kidneys are atrophic. Interval improvement in right knik kidney hydronephrosis since May 15, 2022. Status [...] aggressive osseous lesions. IMPRESSION IMPRESSION: 1. Both knik kidneys are atrophic with improvement in right-sided hydronephrosis since May 15, 2022. 2. 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 No hydronephrosis. No discrete perinephric collection. 3. Partially imaged postsurgical changes related to prior liver transplant. 4. The bladder is decompressed, limiting evaluation. U [facility] Radiology Study observation (narrative) [facility] CT Abdomen and Pelvis WO con trastOrdered By: Gera Lu on 06-27-2022 [facility] Work Phone: CBC AUTO DIFFon 06-18-2022 BASO # 0.0 103/ul Normal 0.0-0.[address] [facility] Comment on above: Performed By: #### U RTPCR #### [facility] [address] [address] [address] Dwight Waters Basophils/100 WBC (Bld) 0.5 % Normal 0.2-2.[address] [facility] Comment on above: Performed By: #### U RTPCR #### [facility] [address] [address] [address] Dwight Waters EO # 0.2 103/ul Normal 0.0-0.[address] [facility] Comment on above: Performed By: #### U RTPCR #### [facility] [address] [address] [address] Dwight Waters Eosinophils/100 WBC (Bld) 2.3 % Normal 0.9-7.0 [facility] Comment on above: Performed By: #### U RTPCR #### [facility] [address] [place] [address] Dr. Dwight Waters Erythrocyte distribution width (RBC) [Ratio] 12.9 % Normal 11.0-15.0 [facility] Comment on above: Performed By: #### U RTPCR #### [facility] [address] [place] [address] Dr. Dwight Waters Hematocrit (Bld) [Volume fraction] 41.2 % Critically low 42.0-54.0 [facility] Comment on above: Performed By: #### U RTPCR #### [facility] [address] [place] [address] Dr. Dwight Waters Hemoglobin (Bld) [Mass/Vol] 13.3 g/dL Critically low 14.0-18.0 [facility] Comment on above: Performed By: #### U RTPCR #### [facility] [address] [place] [address] Dr. Dwight Waters IG # 0.04 10e3/ul Critically high 0.00-0.03 [facility] Comment on above: Performed By: #### U RTPCR #### [facility] [address] [place] [address] Dr. Dwight Waters IG % 0.5 % Normal 0.0-0.5 [facility] Comment on above: Performed By: #### U RTPCR #### [facility] [address] [place] [address] Dr. Dwight Waters LYMPH # 2.0 103/ul Normal 1.2-3.8 [facility] Comment on above: Performed By: #### U RTPCR #### [facility] [address] [place] [address] Dr. Dwight Waters Lymphocytes/100 WBC (Bld) 22.9 % Normal 20.5-60.0 [facility] Comment on above: Performed By: #### U RTPCR #### [facility] [address] [place] [address] Dr. Dwight Waters MANUAL DIFF REQ NO Normal [facility] Comment on above: Performed By: #### U RTPCR #### [facility] [address] [place] [address] Dr. Dwight Waters MCH (RBC) [Entitic mass] 28.7 pg Normal 25.9-34.0 [facility] Comment on above: Performed By: #### U RTPCR #### [facility] [address] [place] [address] Dr. Dwight Waters MCHC (RBC) [Mass/Vol] 32.3 g/dL Normal 29.9-35.2 [facility] Comment on above: Performed By: #### U RTPCR #### [facility] [address] [place] [address] Dr. Dwight Waters MCV (RBC) [Entitic vol] 88.8 fL Normal 80.0-94.0 [facility] Comment on above: Performed By: #### U RTPCR #### [facility] [address] [place] [address] Dr. Dwight Waters MONO # 0.8 103/ul Normal 0.3-0.8 [facility] Comment on above: Performed By: #### U RTPCR #### [facility] [address] [place] [address] Dr. Dwight Waters Monocytes/100 WBC (Bld) 9.7 % Normal 1.7-12.0 [facility] Comment on above: Performed By: #### U RTPCR #### [facility] [address] [place] [address] Dr. Dwight Waters NEUT # 5.6 103/ul Normal 1.4-6.5 [facility] Comment on above: Performed By: #### U RTPCR #### [facility] [address] [place] [address] Dr. Dwight Waters Neutrophils/100 WBC (Bld) 64.1 % Normal 43.0-75.0 [facility] Comment on above: Performed By: #### U RTPCR #### [facility] [address] [place] [address] Dr. Dwgiht Waters Platelet mean volume (Bld) [Entitic vol] 10.0 fL Normal 9.5-13.5 [facility] Comment on above: Performed By: #### U RTPCR #### [facility] [address] [place] [address] Dr. Dwight Waters PLT 270 103/ul Normal 150-[address] [facility] Comment on above: Performed By: #### U RTPCR #### [facility] [address] [place] [address] Dr. Dwight Waters RBC 4.64 106/ul Critically low 4.70-6.10 [facility] Comment on above: Performed By: #### U RTPCR #### [facility] [address] [place] [address] Dr. Dwight Waters WBC 8.7 103/ul Normal 4.0-11.0 [facility] Comment on above: Performed By: #### U RTPCR #### [facility] [address] [place] [address] Dr. Dwight Waters CULTURE URINEon 06-18-2022 CULTURE URINE Culture Observations : NO GROWTH. Normal [facility] Comment on above: Performed By: #### U RTPCR #### [facility] [address] [place] [address] Dr. Dwight Waters [facility] SARS-CoV-2 (COVID-19) RNA ESTELITA+probe Ql (Unsp spec) Not detected Normal NOT DETECTED [facility] Comment on above: Result Comment: [...] for this test is supported by the Applied [employer] Chair of Health and Human Service's declaration that [...] used). Performed By: #### C BC #### [facility] [address] [place] [address] Dr. Dwight Waters ER URINE PROFILEon 2 Bilirubin Ql (U) Negative Normal NEGATIVE [facility] Comment on above: Performed By: #### U RTPCR #### [facility] [address] [place] [address] Dr. Dwight Waters Clarity (U) CLEAR Normal CLEAR [facility] Comment on above: Performed By: #### U RTPCR #### [facility] [address] [place] [address] Dr. Dwight Waters Color (U) YELLOW Normal YELLOW [facility] Comment on above: Performed By: #### U RTPCR #### [facility] [address] [place] [address] Dr. Dwight Waters ERUAHD A micrscopic examina tion will be performed if indicated. Normal [facility] Comment on above: Performed By: #### U RTPCR #### [facility] [address] [place] [address] Dr. Dwight Waters Glucose Ql (U) Negative Normal NEGATIVE [facility] Comment on above: Performed By: #### U RTPCR #### [facility] [address] [place] [address] Dr. Dwight Waters Hemoglobin Ql (U) LARGE Abnormal NEGATIVE [facility] Comment on above: Performed By: #### U RTPCR #### [facility] [address] [place] [address] Dr. Dwight Waters Ketones Ql (U) Negative Normal NEGATIVE [facility] Comment on above: Performed By: #### U RTPCR #### [facility] [address] [place] [address] Dr. Dwight Waters LEUKOCYTES TRACE Abnormal NEGATIVE [facility] Comment on above: Performed By: #### U RTPCR #### [facility] [address] [place] [address] Dr. Dwight Waters Nitrite Ql (U) Negative Normal NEGATIVE [facility] Comment on above: Performed By: #### U RTPCR #### [facility] [address] [place] [address] Dr. Dwight Waters pH (U) 6.0 [pH] Normal 5-9 [facility] Comment on above: Performed By: #### U RTPCR #### [facility] [address] [place] [address] Dr. Dwight Waters Protein (U) [Mass/Vol] 30 mg/dL Abnormal NEGATIVE/ TRACE [facility] Comment on above: Performed By: #### U RTPCR #### [facility] [address] [place] [address] Dr. Dwight Waters SPEC GRAVITY >=1.030 Abnormal 1.005-<=1.02 5 [facility] Comment on above: Performed By: #### U RTPCR #### [facility] [address] [place] [address] Dr. Dwight Waters UR MICRO IND INDICATED Normal [facility] Comment on above: Performed By: #### U RTPCR #### [facility] [address] [place] [address] Dr. Dwight Waters Urobilinogen Qn (U) 0.2 {Alyssa'U}/dL Normal 0.2 - 1. 0 [facility] Comment on above: Performed By: #### U RTPCR #### [facility] [address] [place] [address] Dr. Dwight Waters PROF 14(COMP METB)on 022 Albumin [Mass/Vol] 3.7 g/dL Normal 3.4-5.0 [facility] Comment on above: Performed By: #### C MP #### [facility] [address] [place] [address] Dr. Dwight Waters Albumin/Globulin [Mass ratio] 0.9 {ratio} Normal [facility] Comment on above: Performed By: #### C MP #### [facility] [address] [place] [address] Dr. Dwight Waters ALP [Catalytic activity/Vol] 80 U/L Normal 46-116 [facility] Comment on above: Performed By: #### C MP #### [facility] [address] [address] [address] Dwight Waters ALT [Catalytic activity/Vol] 24 U/L Normal 16-63 [facility] Comment on above: Performed By: #### C MP #### [facility] [address] [address] [address] Dwight Waters Anion gap [Moles/Vol] 12.9 mmol/L Normal [facility] Comment on above: Performed By: #### C MP #### [facility] [address] [address] [address] Dwight Waters AST [Catalytic activity/Vol] 17 U/L Normal 15-37 [facility] Comment on above: Performed By: #### C MP #### [facility] [address] [place] [address] Dr. Dwight Waters Bilirubin [Mass/Vol] 0.8 mg/dL Normal 0.2-1.0 [facility] Comment on above: Performed By: #### C MP #### [facility] [address] [address] [address] Dwight Waters Calcium [Mass/Vol] 9.4 mg/dL Normal 8.5-10.1 [facility] Comment on above: Performed By: #### C MP #### [facility] [address] [address] [address] Dwight Waters Chloride [Moles/Vol] 106 mmol/L Normal 98-[address] [facility] Comment on above: Performed By: #### C MP #### [facility] [address] [address] [address] Dwight Waters CO2 [Moles/Vol] 25.3 mmol/L Normal 21.0-32.[address] [facility] Comment on above: Performed By: #### C MP #### [facility] [address] [address] [address] Dwight Waters Creatinine [Mass/Vol] 1.29 mg/dL Normal 0.70-1.[address] [facility] Comment on above: Performed By: #### C MP #### [facility] [address] [address] [address] Dwight Waters EGFR-AF [place] ISLANDER >60 Normal >=[address] [facility] Comment on above: Performed By: #### C MP #### [facility] [address] [address] [address] Dwight Waters EGFR-NON AF [place]LANDER 59 mL/min/1.73m2 Critically low >=[address] [facility] Comment on above: Performed By: #### C MP #### [facility] [address] [address] [address] Dwight Waters Globulin (S) [Mass/Vol] 4.2 g/dL Normal [facility] Comment on above: Performed By: #### C MP #### [facility] [address] [place] [address] Dr. Dwight Waters Glucose [Mass/Vol] 106 mg/dL Normal 74-[address] [facility] Comment on above: Performed By: #### C MP #### [facility] [address] [address] [address] Dwight Waters Potassium [Moles/Vol] 4.2 mmol/L Normal 3.5-5.[address] [facility] Comment on above: Performed By: #### C MP #### [facility] [address] [place] [address] Dr. Dwight Waters Protein [Mass/Vol] 7.9 g/dL Normal 6.4-8.[address] [facility] Comment on above: Performed By: #### C MP #### [facility] [address] [address] [address] Dwight Waters Sodium [Moles/Vol] 140 mmol/L Normal 136-[address] [facility] Comment on above: Performed By: #### C MP #### [facility] [address] [address] [address] Dwight Waters Urea nitrogen [Mass/Vol] 22.0 mg/dL Critically high 7.0-18.[address] [facility] Comment on above: Performed By: #### C MP #### [facility] [address] [place] [address] Dr. Dwight Waters Urea nitrogen/Creatinine [Mass ratio] 17.1 mg/mg Normal [facility] Comment on above: Performed By: #### C MP #### [facility] [address] [place] [address] Dr. Dwight Waters URINE MICROSCOPIC ONLYon BACTERIA TRACE Abnormal NONE SEEN [facility] Comment on above: Performed By: #### U RTPCR #### [facility] [address] [place] [address] Dr. Dwight Waters Bacteria identified Cx Nom (U) INDICATED Normal [facility] Comment on above: Performed By: #### U RTPCR #### [facility] [address] [place] [address] Dr. Dwight Waters CAST NONE SEEN Normal NONE SEEN [facility] Comment on above: Performed By: #### U RTPCR #### [facility] [address] [place] [address] Dr. Dwight Waters Crystals LM Nom (Urine sed) NONE SEEN Normal NONE SEEN [facility] Comment on above: Performed By: #### U RTPCR #### [facility] [address] [place] [address] Dr. Dwight Waters Epithelial cells LM Ql (Urine sed) NONE SEEN Normal NONE SEEN /RARE [facility] Comment on above: Performed By: #### U RTPCR #### [facility] [address] [place] [address] Dr. Dwight Waters MUCOUS NONE SEEN Normal NONE SEEN [facility] Comment on above: Performed By: #### U RTPCR #### [facility] [address] [place] [address] Dr. Dwight Waters RBC 5-10 Abnormal 0-[address] [facility] Comment on above: Performed By: #### U RTPCR #### [facility] [address] [place] [address] Dr. Dwight Waters WBC 10-20 Abnormal NONE SEEN [facility] Comment on above: Performed By: #### U RTPCR #### [facility] [address] [place] [address] Dr. Dwight Waters ALLOSCREEN RECIPIENT (POST T X PRA)on 06-13-2022 AB SPECIFICITY CLASS COMMENT Antibody Specificity testing performed by [employer]. cPRA calculation based on identification of HLA antibody specificities at MFI >2000 and/or presence of CREG antibodies. [facility] Comment on above: Some of the reagents used for testing in the Clinical Histocompatibility Laboratory have yet to be approved by the FDA. Our certification by CLIA to perform high complexity tests allows us to use these reagents in the context of a stringent QC program, and obviates the need for FDA approval.Testing performed by the [facility] Clinical Histocompatibility Laboratory. [facility] number: [id number]. CLIA number: [id number], Director: Carlito Merchant, PhD, D([facility]). ANTIBODY SPECIFICITY INTERPRETATION Detected [facility] CLASS I SPECIFICITIES Not detected [facility] CLASS II SPECIFICITIES Not detected [facility] HLA Ab (S) 0 % 0 [facility] EXTRA MICROon 06-13-2022 [facility] URINE CULTUREOrdered By: Jah Upton on 06-13-2022 Bacteria identified Cx Nom (Unsp spec) Growth [facility] Bacteria identified Cx Nom (Unsp spec) 10,000-50,000 CFU/mL Mixed skin shimon [facility] Comment on above: Multiple bacterial m orphotypes present. Suggest appropriate recollection if clinically indicated. [facility] CBC,PLATELETSon 06-12-2022 Erythrocyte distribution width (RBC) [Ratio] 13.0 % 10.9 - 14.3 % [facility] Hematocrit (Bld) [Volume fraction] 43.2 % 39.6 - 48.8 % [facility] Hemoglobin (Bld) [Mass/Vol] 13.9 g/dL 13.4 - 16.8 g/dL [facility] Interpretation and review of laboratory results Normal [facility] MCH (RBC) [Entitic mass] 28.7 pg 26.1 - 33.3 pg [facility] MCHC (RBC) [Mass/Vol] 32.2 g/dL 31.9 - 36.5 g/dL [facility] MCV (RBC) [Entitic vol] 89.1 fL 79.0 - 94.5 fL [facility] Platelet mean volume (Bld) [Entitic vol] 10.5 fL 8.7 - 12.3 fL [facility] Platelets (Bld) [#/Vol] 269 10*3/uL 146 - 337 K/uL [facility] RBC (Bld) [#/Vol] 4.85 10*6/uL [facility] WBC (Bld) [#/Vol] 7.68 10*3/uL 3.73 - 10. 10 K/uL [facility] CHEM 7 (LYTES,BUN,CREA,GLUC) on 06-12-2022 Anion gap [Moles/Vol] 14 mmol/L 7 - 17 mmol/L [facility] Chloride [Moles/Vol] 106 mmol/L 98 - 10 8 mmol/L [facility] CO2 [Moles/Vol] 25 mmol/L 21 - 31 mmol/L [facility] Creatinine [Mass/Vol] 1.26 mg/dL 0.70 - 1.30 mg/dL [facility] GFR/1.73 sq M.predicted CKD-EPI (S/P/Bld) [Vol rate/Area] 69 >=60 mL/min/1.73m 2 [facility] Comment on above: Reported eGFR is bas ed on the CKD-EPI 2020 equation using creatinine, age, and sex. Glucose [Mass/Vol] 83 mg/dL 70 - 99 mg/dL [facility] Osmolality Calc [Osmolality] [facility] Potassium [Moles/Vol] 3.8 mmol/L 3.5 - 5.0 mmol/L [facility] Sodium [Moles/Vol] 141 mmol/L 135 - 145 mmol/L [facility] Urea nitrogen [Mass/Vol] 18 mg/dL 7 - 25 mg/dL [facility] Urea nitrogen/Creatinine [Mass ratio] 14 mg/mg [facility] GGTon 06-12-2022 Gamma glutamyl transferase [Catalytic activity/Vol] 20 U/L 8 - 64 U/L [facility] HEMOGLOBIN [id number] By: Link Roche on 06-12-2022 Average glucose Estimated from glycated hemoglobin (Bld) [Mass/Vol] 126 mg/dL [facility] HbA1c (Bld) [Mass fraction] 6.0 % High 4.7 - 5.6 % [facility] Interpretation and review of laboratory results Abnormal [facility] HEPATIC FUNCTION PANELon Albumin [Mass/Vol] 4.3 g/dL 3.5 - 5.0 g/dL [facility] ALP [Catalytic activity/Vol] 78 U/L 32 - 126 U/L [facility] ALT [Catalytic activity/Vol] 12 U/L 10 - 52 U/L [facility] AST [Catalytic activity/Vol] 16 U/L 10 - 39 U/L [facility] Bilirubin [Mass/Vol] 1.0 mg/dL <1.5 [facility] Bilirubin.direct [Mass/Vol] 0.2 mg/dL <0.3 [facility] Protein [Mass/Vol] 7.5 g/dL 6.4 - 8.3 g/dL [facility] No Panel Informationon 06-12 Interpretation and review of laboratory results Normal [facility] PTH INTACTOrdered By: Marli Lizarraga on 06-12-2022 Interpretation and review of laboratory results Abnormal [facility] Parathyrin.intact [Mass/Vol] 79.7 pg/mL High 14.0 - 72.0 pg/mL [facility] URINALYSIS REFLEX TO CULTURE PERFORMABLEon 06-12-2022 Appearance (U) Clear Clear [facility] Bacteria LM Ql (Urine sed) ABSENT ABSENT [facility] Color (U) Yellow Yellow [facility] Epithelial cells.squamous LM Ql (Urine sed) 1/hpf = 1+ 1/hpf = 1+, 2-5/hpf = 2+, 0/hpf = 0+, ABSENT [facility] Glucose Test strip (U) [Mass/Vol] Negative Negative [facility] Interpretation and review of laboratory results Abnormal [facility] Ketones (U) [Mass/Vol] Trace Abnormal Negative [facility] Leukocyte esterase Test strip Ql (U) Small Abnormal Negative [facility] Nitrite Ql (U) Negative Negative [facility] pH (U) 5.5 [pH] 5.0 - 7.0 [facility] Protein (U) [Mass/Vol] 30 mg/dL Abnormal Negative [facility] RBC (U) [#/Vol] Trace Abnormal Negative [facility] RBC LM.HPF (Urine sed) [#/Area] 0-2 0 - 2 /HPF [facility] Specific gravity (U) [Rel density] 1.026 [facility] Urobilinogen (U) [Mass/Vol] 0.2 E.U./dL 0.2 E.U/dL, 1.0 E.U/dL [facility] WBC LM.HPF (Urine sed) [#/Area] 10-20 Abnormal 0 - 5 /HPF [facility] URINE PROTEIN/CREA RATIO, RA NDOMon 06-12-2022 Creatinine (24H U) [Mass/Vol] 231.68 mg/dL [facility] Protein Unsp time (U) [Mass/Vol] 49 mg/dL [facility] Protein/Creatinine (U) [Mass ratio] 0.211 mg/g [facility] FK506 (TACROLIMUS) WHOLE BLO ODon 06-09-2022 Tacrolimus (FK506), Blood 9.8 ng/mL Normal 2.0-20.[address] [facility] Comment on above: Result Comment: Trou gh (immediately following transplant) 15.0 . Trough (steady state, 2 weeks or more after transplant): 3.0 - 8.0 . Performed by LC-MS/MS technology. Performed By: #### U RTPCR #### [facility] [address] [place] [address] Dr. Dwight Waters ALBUMINon 06-06-2022 Albumin [Mass/Vol] 3.8 g/dL Normal 3.4-5.0 [facility] Comment on above: Performed By: #### C MP #### [facility] [address] [place] [address] Dr. Dwight Waters ALKALINE PHOSPHAon ALP [Catalytic activity/Vol] 82 U/L Normal 46-[address] [facility] Comment on above: Performed By: #### C MP #### [facility] [address] [place] [address] Dr. Dwight Waters BILIRUBIN CONJUGATED (DIRECT )on 06-06-2022 BILI, CONJUGATED 0.2 mg/dL Normal 0.0-0.2 [facility] Comment on above: Performed By: #### C BC #### [facility] [address] [place] [address] Dr. Dwight Waters BILIRUBIN TOTALon 06-06-2022 Bilirubin [Mass/Vol] 1.0 mg/dL Normal 0.2-1.0 [facility] Comment on above: Performed By: #### C BC #### [facility] [address] [place] [address] Dr. Dwight Waters BUNon 06-06-2022 Urea nitrogen [Mass/Vol] 18.0 mg/dL Normal 7.0-18.0 [facility] Comment on above: Performed By: #### C BC #### [facility] [address] [place] [address] Dr. Dwight Waters CALCIUMon 06-06-2022 Calcium [Mass/Vol] 9.4 mg/dL Normal 8.5-10.[address] [facility] Comment on above: Performed By: #### C MP #### [facility] [address] [place] [address] Dr. Dwight Waters CBC AUTO DIFFon 06-06-2022 BASO # 0.1 103/ul Normal 0.0-0.1 [facility] Comment on above: Performed By: #### U RTPCR #### [facility] [address] [place] [address] Dr. Dwihgt Waters Basophils/100 WBC (Bld) 0.8 % Normal 0.2-2.0 [facility] Comment on above: Performed By: #### U RTPCR #### [facility] [address] [place] [address] Dr. Dwight Waters EO # 0.3 103/ul Normal 0.0-0.[address] [facility] Comment on above: Performed By: #### U RTPCR #### [facility] [address] [place] [address] Dr. Dwight Waters Eosinophils/100 WBC (Bld) 3.3 % Normal 0.9-7.0 [facility] Comment on above: Performed By: #### U RTPCR #### [facility] [address] [place] [address] Dr. Dwight Waters Erythrocyte distribution width (RBC) [Ratio] 12.4 % Normal 11.0-15.0 [facility] Comment on above: Performed By: #### U RTPCR #### [facility] [address] [place] [address] Dr. Dwight Waters Hematocrit (Bld) [Volume fraction] 45.1 % Normal 42.0-54.0 [facility] Comment on above: Performed By: #### U RTPCR #### [facility] [address] [place] [address] Dr. Dwight Waters Hemoglobin (Bld) [Mass/Vol] 14.4 g/dL Normal 14.0-18.[address] [facility] Comment on above: Performed By: #### U RTPCR #### [facility] [address] [place] [address] Dr. Dwight Waters IG # 0.01 10e3/ul Normal 0.00-0.[address] [facility] Comment on above: Performed By: #### U RTPCR #### [facility] [address] [place] [address] Dr. Dwight Waters IG % 0.1 % Normal 0.0-0.[address] [facility] Comment on above: Performed By: #### U RTPCR #### [facility] [address] [place] [address] Dr. Dwight Waters LYMPH # 2.2 103/ul Normal 1.2-3.8 [facility] Comment on above: Performed By: #### U RTPCR #### [facility] [address] [place] [address] Dr. Dwight Waters Lymphocytes/100 WBC (Bld) 30.0 % Normal 20.5-60.[address] [facility] Comment on above: Performed By: #### U RTPCR #### [facility] [address] [place] [address] Dr. Dwight Waters MANUAL DIFF REQ NO Normal [facility] Comment on above: Performed By: #### U RTPCR #### [facility] [address] [place] [address] Dr. Dwight Waters MCH (RBC) [Entitic mass] 28.2 pg Normal 25.9-34.0 [facility] Comment on above: Performed By: #### U RTPCR #### [facility] [address] [place] [address] Dr. Dwight Waters MCHC (RBC) [Mass/Vol] 31.9 g/dL Normal 29.9-35.[address] [facility] Comment on above: Performed By: #### U RTPCR #### [facility] [address] [place] [address] Dr. Dwight Waters MCV (RBC) [Entitic vol] 88.3 fL Normal 80.0-94.[address] [facility] Comment on above: Performed By: #### U RTPCR #### [facility] [address] [place] [address] Dr. Dwight Waters MONO # 0.6 103/ul Normal 0.3-0.[address] [facility] Comment on above: Performed By: #### U RTPCR #### [facility] [address] [place] [address] Dr. Dwight Waters Monocytes/100 WBC (Bld) 8.2 % Normal 1.7-12.[address] [facility] Comment on above: Performed By: #### U RTPCR #### [facility] [address] [place] [address] Dr. Dwight Waters NEUT # 4.3 103/ul Normal 1.4-6.[address] [facility] Comment on above: Performed By: #### U RTPCR #### [facility] [address] [place] [address] Dr. Dwight Waters Neutrophils/100 WBC (Bld) 57.6 % Normal 43.0-75.[address] [facility] Comment on above: Performed By: #### U RTPCR #### [facility] [address] [place] [address] Dr. Dwight Waters Platelet mean volume (Bld) [Entitic vol] 9.7 fL Normal 9.5-13.[address] [facility] Comment on above: Performed By: #### U RTPCR #### [facility] [address] [place] [address] Dr. Dwight Waters PLT 297 103/ul Normal 150-[address] [facility] Comment on above: Performed By: #### U RTPCR #### [facility] [address] [place] [address] Dr. Dwight Waters RBC 5.11 106/ul Normal 4.70-6.[address] [facility] Comment on above: Performed By: #### U RTPCR #### [facility] [address] [place] [address] Dr. Dwight Waters WBC 7.5 103/ul Normal 4.0-11.[address] [facility] Comment on above: Performed By: #### U RTPCR #### [facility] [address] [place] [address] Dr. Dwight Waters CHLORIDEon 06-06-2022 Chloride [Moles/Vol] 107 mmol/L Normal 98-[address] [facility] Comment on above: Performed By: #### C BC #### [facility] [address] [place] [address] Dr. Dwight Waters CO2on 06-06-2022 CO2 [Moles/Vol] 27.4 mmol/L Normal 21.0-32.[address] [facility] Comment on above: Performed By: #### C BC #### [facility] [address] [place], [place] [id number] Dr. Dwight Waters CREATININEon 06-06-2022 Creatinine [Mass/Vol] 1.20 mg/dL Normal 0.70-1.30 [facility] Comment on above: Performed By: #### C BC #### [facility] [address] [place] [address] Dr. Dwight Waters EGFR-AF [place] >60 Normal >=60 [facility] Comment on above: Performed By: #### C BC #### [facility] [address] [place] [address] Dr. Dwight Waters EGFR-NON AF [place]ER >60 Normal >=60 [facility] Comment on above: Performed By: #### C BC #### [facility] [address] [place] [address] Dr. Dwight Waters GGTon 06-06-2022 Gamma glutamyl transferase [Catalytic activity/Vol] 29 U/L Normal 15-85 [facility] Comment on above: Performed By: #### C BC #### [facility] [address] [place] [address] Dr. Dwight Waters GLUCOSE BLOODon 06-06-2022 Glucose [Mass/Vol] 112 mg/dL Critically high 74-106 [facility] Comment on above: Performed By: #### C BC #### [facility] [address] [place] [address] Dr. Dwight Waters MAGNESIUMon 06-06-2022 Magnesium [Mass/Vol] 1.3 mg/dL Critically low 1.8-2.4 [facility] Comment on above: Performed By: #### C MP #### [facility] [address] [place] [address] Dr. Dwight Waters NAon 06-06-2022 Sodium [Moles/Vol] 141 mmol/L Normal 136-[address] [facility] Comment on above: Performed By: #### C MP #### [facility] [address] [place] [address] Dr. Dwight Waters PHOSPHORUSon 06-06-2022 Phosphate [Mass/Vol] 3.1 mg/dL Normal 2.6-4.7 [facility] Comment on above: Performed By: #### C MP #### [facility] [address] [address] [address] Dwight Waters POTASSIUMon 06-06-2022 Potassium [Moles/Vol] 4.3 mmol/L Normal 3.5-5.1 [facility] Comment on above: Performed By: #### C BC #### [facility] [address] [place] [address] Dr. Dwight Waters SGOTon 06-06-2022 AST [Catalytic activity/Vol] 16 U/L Normal 15-37 [facility] Comment on above: Performed By: #### C BC #### [facility] [address] [place] [address] Dr. Dwight Waters SGPTon 06-06-2022 ALT [Catalytic activity/Vol] 50 U/L Normal 16-63 [facility] Comment on above: Performed By: #### C BC #### [facility] [address] [place] [address] Dr. Dwight Waters Bacteria identified Cx Nom ( Bld)on 05-21-2022 Bacteria identified Cx Nom (Unsp spec) NO GROWTH DAY 5 OF 5 [facility] Results may be compr omised due to volume of BACT\ALERT bottle exceeding 10mLs . The optimal blood volume is 8-10 mls per aerobic/anaerobic blood culture bottle. [facility] CALCIUMon 05-20-2022 Calcium [Mass/Vol] 9.1 mg/dL 8.6 - 10. 5 mg/dL [facility] CBC,PLATELETSon 05-20-2022 Erythrocyte distribution width (RBC) [Ratio] 12.5 % 10.9 - 14.3 % [facility] Hematocrit (Bld) [Volume fraction] 37.1 % Low 39.6 - 48.8 % [facility] Hemoglobin (Bld) [Mass/Vol] 12.3 g/dL Low 13.4 - 16.8 g/dL [facility] Interpretation and review of laboratory results Abnormal [facility] MCH (RBC) [Entitic mass] 28.9 pg 26.1 - 33.3 pg [facility] MCHC (RBC) [Mass/Vol] 33.2 g/dL 31.9 - 36.5 g/dL [facility] MCV (RBC) [Entitic vol] 87.3 fL 79.0 - 94.5 fL [facility] Platelet mean volume (Bld) [Entitic vol] 9.9 fL 8.7 - 12.3 fL [facility] Platelets (Bld) [#/Vol] 234 10*3/uL 146 - 337 K/uL [facility] RBC (Bld) [#/Vol] 4.25 10*6/uL Low [facility] WBC (Bld) [#/Vol] 6.31 10*3/uL 3.73 - 10. 10 K/uL [facility] CHEM 7 (LYTES,BUN,CREA,GLUC) on 05-20-2022 Anion gap [Moles/Vol] 15 mmol/L 7 - 17 mmol/L [facility] Chloride [Moles/Vol] 111 mmol/L High 98 - 10 8 mmol/L [facility] CO2 [Moles/Vol] 22 mmol/L 21 - 31 mmol/L [facility] Creatinine [Mass/Vol] 1.10 mg/dL 0.70 - 1.30 mg/dL [facility] GFR/1.73 sq M.predicted CKD-EPI (S/P/Bld) [Vol rate/Area] 81 >=60 mL/min/1.73m 2 [facility] Comment on above: Reported eGFR is bas ed on the CKD-EPI 2020 equation using creatinine, age, and sex. Glucose [Mass/Vol] 92 mg/dL 70 - 99 mg/dL [facility] Interpretation and review of laboratory results Abnormal [facility] Osmolality Calc [Osmolality] 302 [facility] Potassium [Moles/Vol] 4.4 mmol/L 3.5 - 5.0 mmol/L [facility] Sodium [Moles/Vol] 144 mmol/L 135 - 145 mmol/L [facility] Urea nitrogen [Mass/Vol] 18 mg/dL 7 - 25 [facility]/Creatinine [Mass ratio] 16 [facility] 05-20-2022 Interpretation and review of laboratory results Abnormal [facility] Magnesium [Mass/Vol] 1.5 mg/dL Low 1.6 - 2 .6 mg/dL [facility] No Panel Informationon 05-20 Interpretation and review of laboratory results Normal [facility] PHOSPHATE, INORGANICon 05-20 Phosphate [Mass/Vol] 3.3 mg/dL 2.2 - 4 .6 mg/dL [facility] RF Unspecified body region V iews [...] projections of kidneys, ureters, and bladder. FINDINGS: Urology Teacher images: Urology Teacher radiographs of the abdomen reveal a nonobstructive [...] Contrast refluxes up the ureter to the knik right kidney that is grossly normal appearing. [...] projections of kidneys, ureters, and bladder. FINDINGS: Urology Teacher images: Urology Teacher radiographs of the abdomen reveal a nonobstructive [...] Contrast refluxes up the ureter to the knik right kidney that is grossly normal appearing. [...] reviewed and approved this report. [facility] Radiology Study observation (narrative) [facility] RF Unspecified body region V iews during surgeryOrdered By: Lizz Campos on 05-20-2022 [facility] Work Phone: CALCIUMon 05-19-2022 Calcium [Mass/Vol] 9.2 mg/dL 8.6 - 10. 5 mg/dL [facility] Calcium [Mass/Vol] 8.6 mg/dL 8.6 - 10. 5 mg/dL [facility] CBC,PLATELETSon 05-19-2022 Erythrocyte distribution width (RBC) [Ratio] 12.4 % 10.9 - 14.3 % [facility] Hematocrit (Bld) [Volume fraction] 38.0 % Low 39.6 - 48.8 % [facility] Hemoglobin (Bld) [Mass/Vol] 12.0 g/dL Low 13.4 - 16.8 g/dL [facility] Interpretation and review of laboratory results Abnormal [facility] MCH (RBC) [Entitic mass] 28.6 pg 26.1 - 33.3 pg [facility] MCHC (RBC) [Mass/Vol] 31.6 g/dL Low 31.9 - 36.5 g/dL [facility] MCV (RBC) [Entitic vol] 90.5 fL 79.0 - 94.5 fL [facility] Platelet mean volume (Bld) [Entitic vol] 9.7 fL 8.7 - 12.3 fL [facility] Platelets (Bld) [#/Vol] 199 10*3/uL 146 - 337 K/uL [facility] RBC (Bld) [#/Vol] 4.20 10*6/uL Low [facility] WBC (Bld) [#/Vol] 6.81 10*3/uL 3.73 - 10. 10 K/uL [facility] CHEM 7 (LYTES,BUN,CREA,GLUC) on 05-19-2022 Anion gap [Moles/Vol] 13 mmol/L 7 - 17 mmol/L [facility] Chloride [Moles/Vol] 105 mmol/L 98 - 10 8 mmol/L [facility] CO2 [Moles/Vol] 30 mmol/L 21 - 31 mmol/L [facility] Creatinine [Mass/Vol] 1.39 mg/dL High 0.70 - 1.30 mg/dL [facility] GFR/1.73 sq M.predicted CKD-EPI (S/P/Bld) [Vol rate/Area] 61 >=60 mL/min/1.73m 2 [facility] Comment on above: Reported eGFR is bas ed on the CKD-EPI 2020 equation using creatinine, age, and sex. Glucose [Mass/Vol] 121 mg/dL High 70 - 99 mg/dL [facility] Interpretation and review of laboratory results Abnormal [facility] Osmolality Calc [Osmolality] 303 [facility] Potassium [Moles/Vol] 3.8 mmol/L 3.5 - 5.0 mmol/L [facility] Sodium [Moles/Vol] 144 mmol/L 135 - 145 mmol/L [facility] Urea nitrogen [Mass/Vol] 18 mg/dL 7 - 25 mg/dL [facility] Urea nitrogen/Creatinine [Mass ratio] 13 mg/mg [facility] Anion gap [Moles/Vol] 15 mmol/L 7 - 17 mmol/L [facility] Chloride [Moles/Vol] 106 mmol/L 98 - 10 8 mmol/L [facility] CO2 [Moles/Vol] 24 mmol/L 21 - 31 mmol/L [facility] Creatinine [Mass/Vol] 1.46 mg/dL High 0.70 - 1.30 mg/dL [facility] GFR/1.73 sq M.predicted CKD-EPI (S/P/Bld) [Vol rate/Area] 58 Low >=60 mL/min/1.73m 2 [facility] Comment on above: Reported eGFR is bas ed on the CKD-EPI 202 equation using creatinine, age, and sex. Glucose [Mass/Vol] 103 mg/dL High 70 - 99 mg/dL [facility] Interpretation and review of laboratory results Abnormal [facility] Osmolality Calc [Osmolality] 298 [facility] Potassium [Moles/Vol] 3.9 mmol/L 3.5 - 5.0 mmol/L [facility] Sodium [Moles/Vol] 141 mmol/L 135 - 145 mmol/L [facility] Urea nitrogen [Mass/Vol] 21 mg/dL 7 - 25 mg/dL [facility] Urea nitrogen/Creatinine [Mass ratio] 14 mg/mg [facility] MAGNESIUMon 05-19-2022 Magnesium [Mass/Vol] 2.0 mg/dL 1.6 - 2 .6 mg/dL [facility] Magnesium [Mass/Vol] 1.7 mg/dL 1.6 - 2 .6 mg/dL [facility] No Panel Informationon 05-19 Interpretation and review of laboratory results Normal [facility] Interpretation and review of laboratory results Normal [facility] PHOSPHATE, INORGANICon 05-19 Phosphate [Mass/Vol] 3.0 mg/dL 2.2 - 4 .6 mg/dL [facility] Phosphate [Mass/Vol] 2.7 mg/dL 2.2 - 4 .6 mg/dL [facility] CALCIUMon 05-18-2022 Calcium [Mass/Vol] 9.1 mg/dL 8.6 - 10. 5 mg/dL [facility] CBC,PLATELETSon 05-18-2022 Erythrocyte distribution width (RBC) [Ratio] 12.5 % 10.9 - 14.3 % [facility] Hematocrit (Bld) [Volume fraction] 37.3 % Low 39.6 - 48.8 % [facility] Hemoglobin (Bld) [Mass/Vol] 11.9 g/dL Low 13.4 - 16.8 g/dL [facility] Interpretation and review of laboratory results Abnormal [facility] MCH (RBC) [Entitic mass] 28.9 pg 26.1 - 33.3 pg [facility] MCHC (RBC) [Mass/Vol] 31.9 g/dL 31.9 - 36.5 g/dL [facility] MCV (RBC) [Entitic vol] 90.5 fL 79.0 - 94.5 fL [facility] Platelet mean volume (Bld) [Entitic vol] 10.1 fL 8.7 - 12.3 fL [facility] Platelets (Bld) [#/Vol] 189 10*3/uL 146 - 337 K/uL [facility] RBC (Bld) [#/Vol] 4.12 10*6/uL Low [facility] WBC (Bld) [#/Vol] 10.19 10*3/uL High 3.73 - 10 .10 K/uL [facility] CHEM 7 (LYTES,BUN,CREA,GLUC) on 05-18-2022 Anion gap [Moles/Vol] 13 mmol/L 7 - 17 mmol/L [facility] Chloride [Moles/Vol] 102 mmol/L 98 - 10 8 mmol/L [facility] CO2 [Moles/Vol] 26 mmol/L 21 - 31 mmol/L [facility] Creatinine [Mass/Vol] 1.91 mg/dL High 0.70 - 1.30 mg/dL [facility] GFR/1.73 sq M.predicted CKD-EPI (S/P/Bld) [Vol rate/Area] 42 Low >=60 mL/min/1.73m 2 [facility] Comment on above: Reported eGFR is bas ed on the CKD-EPI 2020 equation using creatinine, age, and sex. Glucose [Mass/Vol] 158 mg/dL High 70 - 99 mg/dL [facility] Osmolality Calc [Osmolality] 297 [facility] Potassium [Moles/Vol] 4.0 mmol/L 3.5 - 5.0 mmol/L [facility] Sodium [Moles/Vol] 137 mmol/L 135 - 145 mmol/L [facility] Urea nitrogen [Mass/Vol] 30 mg/dL High 7 - 25 mg/[facility] Urea nitrogen/Creatinine [Mass ratio] 16 mg/mg [facility] CHEM 7 (LYTES,BUN,CREA,GLUC) Ordered By: Tamiko Thapa on 05-18-2022 Anion gap [Moles/Vol] 13 mmol/L 7 - 17 mmol/L [facility] Chloride [Moles/Vol] 104 mmol/L 98 - 10 8 mmol/L [facility] CO2 [Moles/Vol] 26 mmol/L 21 - 31 mmol/L [facility] Creatinine [Mass/Vol] 2.96 mg/dL High 0.70 - 1.30 mg/dL [facility] GFR/1.73 sq M.predicted CKD-EPI (S/P/Bld) [Vol rate/Area] 25 Low >=60 mL/min/1.73m 2 [facility] Comment on above: Reported eGFR is bas ed on the CKD-EPI 2020 equation using creatinine, age, and sex. Glucose [Mass/Vol] 136 mg/dL High 70 - 99 mg/dL [facility] Interpretation and review of laboratory results Abnormal [facility] Osmolality Calc [Osmolality] 304 [facility] Potassium [Moles/Vol] 4.2 mmol/L 3.5 - 5.0 mmol/L [facility] Sodium [Moles/Vol] 139 mmol/L 135 - 145 mmol/L [facility] Urea nitrogen [Mass/Vol] 41 mg/dL High 7 - 25 mg/dL [facility] Urea nitrogen/Creatinine [Mass ratio] 14 mg/mg [facility] MAGNESIUMon 05-18-2022 Magnesium [Mass/Vol] 2.2 mg/dL 1.6 - 2 .6 mg/dL [facility] Interpretation and review of laboratory results Normal [facility] Magnesium [Mass/Vol] 1.7 mg/dL 1.6 - 2 .6 mg/dL [facility] No Panel Informationon 05-18 Interpretation and review of laboratory results Abnormal [facility] Interpretation and review of laboratory results Normal [facility] PHOSPHATE, INORGANICon 05-18 Phosphate [Mass/Vol] 2.0 mg/dL Low 2.2 - 4 .6 mg/dL [facility] Interpretation and review of laboratory results Normal [facility] Phosphate [Mass/Vol] 2.8 mg/dL 2.2 - 4 .6 mg/dL [facility] PT,INR,PTTon 05-18-2022 aPTT Coag (PPP) [Time] 31.0 s [facility] INR Coag (Bld) [Relative time] 1.1 {INR} [facility] Interpretation and review of laboratory results Abnormal [facility] PT Coag (PPP) [Time] 14.4 s High [facility] URINE CULTUREOrdered By: Sylvia Campos on 05-18-2022 Bacteria identified Cx Nom (Unsp spec) No Growth [facility] CBC,PLATELETSon 05-17-2022 Erythrocyte distribution width (RBC) [Ratio] 12.8 % 10.9 - 14.3 % [facility] Hematocrit (Bld) [Volume fraction] 42.8 % 39.6 - 48.8 % [facility] Hemoglobin (Bld) [Mass/Vol] 13.3 g/dL Low 13.4 - 16.8 g/dL [facility] Interpretation and review of laboratory results Abnormal [facility] MCH (RBC) [Entitic mass] 28.9 pg 26.1 - 33.3 pg [facility] MCHC (RBC) [Mass/Vol] 31.1 g/dL Low 31.9 - 36.5 g/dL [facility] MCV (RBC) [Entitic vol] 92.8 fL 79.0 - 94.5 fL [facility] Platelet mean volume (Bld) [Entitic vol] 10.3 fL 8.7 - 12.3 fL [facility] Platelets (Bld) [#/Vol] 188 10*3/uL 146 - 337 K/uL [facility] RBC (Bld) [#/Vol] 4.61 10*6/uL [facility] [#/Vol] 16.61 10*3/uL High 3.73 - 10 .10 K/uL [facility] CHEM 7 (LYTES,BUN,CREA,GLUC) Ordered By: Kaylah Mc on 05-17-2022 Anion gap [Moles/Vol] 15 mmol/L 7 - 17 mmol/L [facility] Chloride [Moles/Vol] 103 mmol/L 98 - 10 8 mmol/L [facility] CO2 [Moles/Vol] 23 mmol/L 21 - 31 mmol/L [facility] Creatinine [Mass/Vol] 5.95 mg/dL High 0.70 - 1.30 mg/dL [facility] GFR/1.73 sq M.predicted CKD-EPI (S/P/Bld) [Vol rate/Area] 11 Low >=60 mL/min/1.73m 2 [facility] Comment on above: Reported eGFR is bas ed on the CKD-EPI 2020 equation using creatinine, age, and sex. Glucose [Mass/Vol] 165 mg/dL High 70 - 99 mg/dL [facility] Interpretation and review of laboratory results Abnormal [facility] Osmolality Calc [Osmolality] 305 [facility] Potassium [Moles/Vol] 4.6 mmol/L 3.5 - 5.0 mmol/L [facility] Sodium [Moles/Vol] 136 mmol/L 135 - 145 mmol/L [facility] Urea nitrogen [Mass/Vol] 52 mg/dL High 7 - 25 mg/dL [facility] Urea nitrogen/Creatinine [Mass ratio] 9 mg/mg [facility] CHEM 7 (LYTES,BUN,CREA,GLUC) Ordered By: Kehinde Gutierrez on 05-17-2022 Anion gap [Moles/Vol] 24 mmol/L High 7 - 17 mmol/L [facility] Chloride [Moles/Vol] 100 mmol/L 98 - 10 8 mmol/L [facility] CO2 [Moles/Vol] 16 mmol/L Low 21 - 31 mmol/L [facility] Creatinine [Mass/Vol] 8.08 mg/dL High 0.70 - 1.30 mg/dL [facility] GFR/1.73 sq M.predicted CKD-EPI (S/P/Bld) [Vol rate/Area] 7 Low >=60 mL/min/1.73m 2 [facility] Comment on above: Reported eGFR is bas ed on the CKD-EPI 2020 equation using creatinine, age, and sex. Glucose [Mass/Vol] 164 mg/dL High 70 - 99 mg/dL [facility] Interpretation and review of laboratory results Abnormal [facility] Osmolality Calc [Osmolality] 305 [facility] Potassium [Moles/Vol] 5.0 mmol/L 3.5 - 5.0 mmol/L [facility] Sodium [Moles/Vol] 135 mmol/L 135 - 145 mmol/L [facility] Urea nitrogen [Mass/Vol] 56 mg/dL High 7 - 25 mg/dL [facility] Urea nitrogen/Creatinine [Mass ratio] 7 mg/mg [facility] LAVENDER TOP TUBEon 05-17-20 [facility] MAGNESIUMon 05-17-2022 Interpretation and review of laboratory results Normal [facility] Magnesium [Mass/Vol] 1.8 mg/dL 1.6 - 2 .6 mg/dL [facility] Interpretation and review of laboratory results Normal [facility] Magnesium [Mass/Vol] 1.6 mg/dL 1.6 - 2 .6 mg/dL [facility] No Panel Informationon 05-17 [facility] PHOSPHATE, INORGANICon 05-17 Interpretation and review of laboratory results Abnormal [facility] Phosphate [Mass/Vol] 4.9 mg/dL High 2.2 - 4 .6 mg/dL [facility] PT,INR,PTTon 05-17-2022 aPTT Coag (PPP) [Time] 33.0 s [facility] INR Coag (Bld) [Relative time] 1.3 {INR} High [facility] Interpretation and review of laboratory results Abnormal [facility] PT Coag (PPP) [Time] 15.7 s High [facility] Viewson IMPRESSION: No [...] IMPRESSION IMPRESSION: No acute findings. [facility] Radiology Study observation (narrative) [facility] Portable XR Chest ViewsOrder ed By: Raheem Sanz on 05-17-2022 [facility] Work Phone: URINALYSISOrdered By: Michael patel Ma on 05-17-2022 Appearance (U) Cloudy Abnormal Clear [facility] Comment on above: Results may be inacc urate due to color interference. Clinical correlation recommended. Bacteria LM Ql (Urine sed) ABSENT ABSENT [facility] Color (U) Red Abnormal Yellow [facility] Comment on above: Results may be inacc urate due to color interference. Clinical correlation recommended. Epithelial cells.squamous LM Ql (Urine sed) ABSENT 1/hpf = 1+, 2-5/hpf = 2+, 0/hpf = 0+, ABSENT [facility] Glucose Test strip (U) [Mass/Vol] Negative Negative [facility] Comment on above: Results may be inacc urate due to color interference. Clinical correlation recommended. Interpretation and review of laboratory results Abnormal [facility] Ketones (U) [Mass/Vol] Trace Abnormal Negative [facility] Comment on above: Results may be inacc urate due to color interference. Clinical correlation recommended. Leukocyte esterase Test strip Ql (U) Large Abnormal Negative [facility] Comment on above: Results may be inacc urate due to color interference. Clinical correlation recommended. Nitrite Ql (U) Negative Negative [facility] Comment on above: Results may be inacc urate due to color interference. Clinical correlation recommended. pH (U) 5.0 [pH] 5.0 - 7.0 [facility] Comment on above: Results may be inacc urate due to color interference. Clinical correlation recommended. Protein (U) [Mass/Vol] mg/dL Abnormal Negative [facility] Comment on above: Results may be inacc urate due to color interference. Clinical correlation recommended. RBC (U) [#/Vol] Large Abnormal Negative [facility] Comment on above: Results may be inacc urate due to color interference. Clinical correlation recommended. RBC LM.HPF (Urine sed) [#/Area] /[HPF] Abnormal 0 - 2 /HPF [facility] Specific gravity (U) [Rel density] 1.016 [facility] Comment on above: Results may be inacc urate due to color interference. Clinical correlation recommended. Urobilinogen (U) [Mass/Vol] 0.2 E.U./dL 0.2 E.U/dL, 1.0 E.U/dL [facility] Comment on above: Results may be inacc urate due to color interference. Clinical correlation recommended. WBC LM.HPF (Urine sed) [#/Area] /[HPF] Abnormal 0 - 5 /HPF [facility] URINE CULTUREOrdered By: Tyler Tiwari on 05-17-2022 Bacteria identified Cx Nom (Unsp spec) No Growth [facility] CBC,PLATELETSon 05-16-2022 Erythrocyte distribution width (RBC) [Ratio] 12.9 % 10.9 - 14.3 % [facility] Hematocrit (Bld) [Volume fraction] 46.5 % 39.6 - 48.8 % [facility] Hemoglobin (Bld) [Mass/Vol] 14.7 g/dL 13.4 - 16.8 g/dL [facility] Interpretation and review of laboratory results Abnormal [facility] MCH (RBC) [Entitic mass] 28.3 pg 26.1 - 33.3 pg [facility] MCHC (RBC) [Mass/Vol] 31.6 g/dL Low 31.9 - 36.5 g/dL [facility] MCV (RBC) [Entitic vol] 89.6 fL 79.0 - 94.5 fL [facility] Platelet mean volume (Bld) [Entitic vol] 10.3 fL 8.7 - 12.3 fL [facility] Platelets (Bld) [#/Vol] 188 10*3/uL 146 - 337 K/uL [facility] RBC (Bld) [#/Vol] 5.19 10*6/uL [facility] WBC (Bld) [#/Vol] 12.55 10*3/uL High 3.73 - 10 .10 K/uL [facility] CHEM 7 (LYTES,BUN,CREA,GLUC) Ordered By: Alma Pena on 05-16-2022 Anion gap [Moles/Vol] 14 mmol/L 7 - 17 mmol/L [facility] Chloride [Moles/Vol] 103 mmol/L 98 - 10 8 mmol/L [facility] CO2 [Moles/Vol] 22 mmol/L 21 - 31 mmol/L [facility] Creatinine [Mass/Vol] 6.09 mg/dL High 0.70 - 1.30 mg/dL [facility] GFR/1.73 sq M.predicted CKD-EPI (S/P/Bld) [Vol rate/Area] 10 Low >=60 mL/min/1.73m 2 [facility] Comment on above: Reported eGFR is bas ed on the CKD-EPI 2020 equation using creatinine, age, and sex. Glucose [Mass/Vol] 134 mg/dL High 70 - 99 mg/dL [facility] Interpretation and review of laboratory results Abnormal [facility] Osmolality Calc [Osmolality] 298 [facility] Potassium [Moles/Vol] 4.9 mmol/L 3.5 - 5.0 mmol/L [facility] Sodium [Moles/Vol] 134 mmol/L Low 135 - 145 mmol/L [facility] Comment on above: Results inconsistent with previous results Urea nitrogen [Mass/Vol] 49 mg/dL High 7 - 25 mg/dL [facility] Urea nitrogen/Creatinine [Mass ratio] 8 mg/mg [facility] CHEM 7 (LYTES,BUN,CREA,GLUC) on 05-16-2022 Anion gap [Moles/Vol] 17 mmol/L 7 - 17 mmol/L [facility] Chloride [Moles/Vol] 106 mmol/L 98 - 10 8 mmol/L [facility] CO2 [Moles/Vol] 22 mmol/L 21 - 31 mmol/L [facility] Creatinine [Mass/Vol] 5.23 mg/dL High 0.70 - 1.30 mg/dL [facility] GFR/1.73 sq M.predicted CKD-EPI (S/P/Bld) [Vol rate/Area] 13 Low >=60 mL/min/1.73m 2 [facility] Comment on above: Reported eGFR is bas ed on the CKD-EPI 2020 equation using creatinine, age, and sex. Glucose [Mass/Vol] 116 mg/dL High 70 - 99 mg/dL [facility] Interpretation and review of laboratory results Abnormal [facility] Osmolality Calc [Osmolality] 305 [facility] Potassium [Moles/Vol] 4.6 mmol/L 3.5 - 5.0 mmol/L [facility] Sodium [Moles/Vol] 140 mmol/L 135 - 145 mmol/L [facility] Urea nitrogen [Mass/Vol] 42 mg/dL High 7 - 25 mg/dL [facility] Urea nitrogen/Creatinine [Mass ratio] 8 mg/mg [facility] EXTRA MICROon 05-16-2022 [facility] LT BLUE TOP TUBEon [facility] LYTES (NA, K, CL) - URINE - RANDOMon 05-16-2022 Chloride (24H U) [Moles/Vol] 68 mmol/L [facility] Potassium (24H U) [Moles/Vol] 36.7 mmol/L [facility] Sodium (24H U) [Moles/Vol] 55 mmol/L [facility] The reference range has not been established for random urine specimens. The test result should be integrated into the clinical context for interpretation. [facility] MAGNESIUMon 05-16-2022 Interpretation and review of laboratory results Normal [facility] Magnesium [Mass/Vol] 1.7 mg/dL 1.6 - 2 .6 mg/dL [facility] NOVEL CORONAVIRUS PCROrdered By: Edson Candelario on 05-16-2022 SARS-CoV-2 (COVID-19) RNA ESTELITA+probe Ql (Unsp spec) Not detected NOT DETECTED [facility] Comment on above: [facility] Negative results do [...] for use by authorized laboratories. [facility] No Panel Informationon 05-16 [facility] OSMOLALITY, URINEon 05-16-20 Interpretation and review of laboratory results Normal [facility] Osmolality (U) [Osmolality] 320 mosm/kg [facility] The reference range has not been established for random urine specimens. The test result should be integrated into the clinical context for interpretation. [facility] PROCALCITONINon 05-16-2022 Interpretation and review of laboratory results Normal [facility] Procalcitonin [Mass/Vol] 0.18 ng/mL <0.50 [facility] Comment on above: Procalcitonin is an [...] and trend procalcitonin in various clinical settings. [email or web address] Two common cutoffs associated with bacterial infections are as follows. Respiratory tract infections: >0.25 ng/mL Sepsis/septic shock: >0.5 ng/mL Procalcitonin should not be used alone as a diagnostic tool, however. All procalcitonin results should be interpreted in association with the patients clinical condition and all laboratory findings. [facility] PT,INR,PTTon 05-16-2022 aPTT Coag (PPP) [Time] 30.3 s [facility] INR Coag (Bld) [Relative time] 1.1 {INR} [facility] Interpretation and review of laboratory results Normal [facility] PT Coag (PPP) [Time] 14.1 s [facility] SARS-CoV-2 (COVID-19) RNA NA A+probe Ql (Unsp spec)Ordered By: Edson Candelario on 05-16-2022 Interpretation and review of laboratory results Normal [facility] TACROLIMUS LEVEL, TROUGH (MT E DRUG LEVEL)Ordered By: Mariama Nick on 05-16-2022 Interpretation and review of laboratory results Normal [facility] Tacrolimus (Bld) [Mass/Vol] 4.1 ng/mL Bone Marrow Transplant: 4.0-12.0, Therapeutic: 5.0-15.0 [facility] Method performed is a chemiluminescent microparticle immunoasssay on the [employer] i2000. The range is based on experience at [facility] and users should be aware that target concentrations vary widely depending on concomitant therapy, time post-transplant, and desired degree of immunosuppression. [facility] URINE PROTEIN/CREA RATIO, RA Baljit 05-16-2022 Creatinine (24H U) [Mass/Vol] 59.82 mg/dL [facility] Protein Unsp time (U) [Mass/Vol] 111 mg/dL [facility] Protein/Creatinine (U) [Mass ratio] 1.856 mg/g [facility] US for transplanted kidney l imitedon [...] flow in the transplant kidney. [facility] Radiology Study observation (narrative) [facility] US for transplanted kidney l imitedOrdered By: Rosendo Matute on 05-16-2022 [facility] Work Phone: CBC AND ELECTRONIC DIFFon Basophils (Bld) [#/Vol] 10*3/uL 0.00 - 0.09 K/uL [facility] Basophils/100 WBC (Bld) 0.2 % [facility] Differential cell count method Nom (Bld) Electronic Differential [facility] Eosinophils (Bld) [#/Vol] 10*3/uL 0.00 - 0.48 K/uL [facility] Eosinophils/100 WBC (Bld) 0.0 % [facility] Erythrocyte distribution width (RBC) [Ratio] 12.8 % 10.9 - 14.3 % [facility] Hematocrit (Bld) [Volume fraction] 46.0 % 39.6 - 48.8 % [facility] Hemoglobin (Bld) [Mass/Vol] 14.6 g/dL 13.4 - 16.8 g/dL [facility] Immature granulocytes (Bld) [#/Vol] 0.07 10*3/uL <=0.08 [facility] Immature granulocytes/100 WBC (Bld) 0.4 % [facility] Interpretation and review of laboratory results Abnormal [facility] Lymphocytes (Bld) [#/Vol] 1.49 10*3/uL 0.83 - 3.57 K/uL [facility] Lymphocytes/100 WBC (Bld) 9.4 % [facility] MCH (RBC) [Entitic mass] 28.2 pg 26.1 - 33.3 pg [facility] MCHC (RBC) [Mass/Vol] 31.7 g/dL Low 31.9 - 36.5 g/dL [facility] MCV (RBC) [Entitic vol] 89.0 fL 79.0 - 94.5 fL [facility] Monocytes (Bld) [#/Vol] 1.45 10*3/uL High 0.24 - 0.93 K/uL [facility] Monocytes/100 WBC (Bld) 9.2 % [facility] Neutrophils (Bld) [#/Vol] 12.77 10*3/uL High 1.57 - 6.19 K/uL [facility] Nucleated RBC/100 WBC (Bld) [Ratio] 0.0 % <=0.2 /100 WBC [facility] Platelet mean volume (Bld) [Entitic vol] 9.9 fL 8.7 - 12.3 fL [facility] Platelets (Bld) [#/Vol] 250 10*3/uL 146 - 337 K/uL [facility] RBC (Bld) [#/Vol] 5.17 10*6/uL [facility] Segmented neutrophils/100 WBC (Bld) 80.8 % [facility] WBC (Bld) [#/Vol] 15.81 10*3/uL High 3.73 - 10 .10 K/uL [facility] CBC AUTO DIFFon 05-15-2022 BASO # 0.0 103/ul Normal 0.0-0.[address] [facility] Comment on above: Performed By: #### C BC #### [facility] [address] [place] [address] Dr. Dwight Waters Basophils/100 WBC (Bld) 0.3 % Normal 0.2-2.0 [facility] Comment on above: Performed By: #### C BC #### [facility] [address] [place] [address] Dr. Dwight Waters EO # 0.1 103/ul Normal 0.0-0.[address] [facility] Comment on above: Performed By: #### C BC #### [facility] [address] [place] [address] Dr. Dwight Waters Eosinophils/100 WBC (Bld) 0.8 % Critically low 0.9-7.0 [facility] Comment on above: Performed By: #### C BC #### [facility] [address] [place] [address] Dr. Dwight Waters Erythrocyte distribution width (RBC) [Ratio] 12.7 % Normal 11.0-15.0 [facility] Comment on above: Performed By: #### C BC #### [facility] [address] [place] [address] Dr. Dwight Waters Hematocrit (Bld) [Volume fraction] 43.5 % Normal 42.0-54.0 [facility] Comment on above: Performed By: #### C BC #### [facility] [address] [place] [address] Dr. Dwight Waters Hemoglobin (Bld) [Mass/Vol] 14.4 g/dL Normal 14.0-18.0 [facility] Comment on above: Performed By: #### C BC #### [facility] [address] [place] [address] Dr. Dwight Waters IG # 0.02 10e3/ul Normal 0.00-0.03 [facility] Comment on above: Performed By: #### C BC #### [facility] [address] [place] [address] Dr. Dwight Waters IG % 0.2 % Normal 0.0-0.[address] [facility] Comment on above: Performed By: #### C BC #### [facility] [address] [place] [address] Dr. Dwight Waters LYMPH # 1.5 103/ul Normal 1.2-3.8 [facility] Comment on above: Performed By: #### C BC #### [facility] [address] [place] [address] Dr. Dwight Waters Lymphocytes/100 WBC (Bld) 12.5 % Critically low 20.5-60.0 [facility] Comment on above: Performed By: #### C BC #### [facility] [address] [place] [address] Dr. Dwihgt Waters MANUAL DIFF REQ NO Normal [facility] Comment on above: Performed By: #### C BC #### [facility] [address] [place] [address] Dr. Dwight Waters MCH (RBC) [Entitic mass] 28.6 pg Normal 25.9-34.0 [facility] Comment on above: Performed By: #### C BC #### [facility] [address] [place] [address] Dr. Dwight Waters MCHC (RBC) [Mass/Vol] 33.1 g/dL Normal 29.9-35.2 [facility] Comment on above: Performed By: #### C BC #### [facility] [address] [place] [address] Dr. Dwight Waters MCV (RBC) [Entitic vol] 86.3 fL Normal 80.0-94.0 [facility] Comment on above: Performed By: #### C BC #### [facility] [address] [place] [address] Dr. Dwight Waters MONO # 1.0 103/ul Critically high 0.3-0.[address] [facility] Comment on above: Performed By: #### C BC #### [facility] [address] [place] [address] Dr. Dwight Waters Monocytes/100 WBC (Bld) 8.2 % Normal 1.7-12.0 [facility] Comment on above: Performed By: #### C BC #### [facility] [address] [id number] Dwight Waters NEUT # 9.1 103/ul Critically high 1.4-6.[address] [facility] Comment on above: Performed By: #### C BC #### [facility] [address] [id number] Dwight Waters Neutrophils/100 WBC (Bld) 78.0 % Critically high 43.0-75.[address] [facility] Comment on above: Performed By: #### C BC #### [facility] [address] [address] [address] Dwight Waters Platelet mean volume (Bld) [Entitic vol] 9.8 fL Normal 9.5-13.[address] [facility] Comment on above: Performed By: #### C BC #### [facility] [address] [place] [address] Dr. Dwight Waters PLT 251 103/ul Normal 150-[address] [facility] Comment on above: Performed By: #### C BC #### [facility] [address] [address] [address] Dwight Waters RBC 5.04 106/ul Normal 4.70-6.[address] [facility] Comment on above: Performed By: #### C BC #### [facility] [address] [place], [place] [id number] Dr. Dwight Waters WBC 11.6 103/ul Critically high 4.0-11.[address] [facility] Comment on above: Performed By: #### C BC #### [facility] [address] [place] [address] Dr. Dwight Waters CHEM 6 (LYTES, BUN CREA)on 0 05-15-2022 Anion gap [Moles/Vol] 12 mmol/L 7 - 17 mmol/L [facility] Chloride [Moles/Vol] 105 mmol/L 98 - 10 8 mmol/L [facility] CO2 [Moles/Vol] 26 mmol/L 21 - 31 mmol/L [facility] Creatinine [Mass/Vol] 2.85 mg/dL High 0.70 - 1.30 mg/dL [facility] GFR/1.73 sq M.predicted CKD-EPI (S/P/Bld) [Vol rate/Area] 26 Low >=60 mL/min/1.73m 2 [facility] Comment on above: Reported eGFR is bas ed on the CKD-EPI 2020 equation using creatinine, age, and sex. Potassium [Moles/Vol] 4.6 mmol/L 3.5 - 5.0 mmol/L [facility] Sodium [Moles/Vol] 138 mmol/L 135 - 145 mmol/L [facility] Urea nitrogen [Mass/Vol] 32 mg/dL High 7 - 25 mg/[facility] Urea nitrogen/Creatinine [Mass ratio] 11 mg[facility] ABD/PELVIS WO CONon 05-15 CT [...] transplanted kidney with moderate right-sided hydronephrosis. Atrophic knik kidneys with moderate right-sided hydronephrosis. Multiple nonobstructive [...] transplanted kidney with moderate right-sided hydronephrosis. Atrophic knik kidneys with moderate right-sided hydronephrosis. Multiple nonobstructive right renal calculi measuring up to 8 mm. FOLLOW-UP: Follow-up as clinically indicated. Electronically authenticated by: LYNDSAY JEAN Date: 2022-05-15 05:[address] [facility]30 SARS-CoV-2 (COVID-19) RNA ESTELITA+probe Ql (Unsp spec) Not detected Normal NOT DETECTED [facility] Comment on above: Result Comment: [...] for this test is supported by the [place] of [employer] and Human Service's declaration that [...] used). Performed By: #### U RTPCR #### [facility] [address] [place] [address] Dr. Dwight Waters GLUCOSEon 05-15-2022 Glucose [Mass/Vol] 141 mg/dL High 70 - 99 mg/dL [facility] GOLD TOP TUBEon 05-15-2022 [facility] HEPATIC FUNCTION PANELon Albumin [Mass/Vol] 4.3 g/dL 3.5 - 5.0 g/dL [facility] ALP [Catalytic activity/Vol] 85 U/L 32 - 126 U/L [facility] ALT [Catalytic activity/Vol] 13 U/L 10 - 52 U/L [facility] AST [Catalytic activity/Vol] 15 U/L 10 - 39 U/L [facility] Bilirubin [Mass/Vol] 0.8 mg/dL <1.5 [facility] Bilirubin.direct [Mass/Vol] 0.2 mg/dL <0.3 [facility] Interpretation and review of laboratory results Normal [facility] Protein [Mass/Vol] 7.3 g/dL 6.4 - 8.3 g/dL [facility] LIPASEon 05-15-2022 Lipase [Catalytic activity/Vol] 8 U/L Low 11 - 82 U/L [facility] No Panel Informationon 05-15 Interpretation and review of laboratory results Abnormal [facility] PROF 14(COMP METB)on 022 Albumin [Mass/Vol] 3.8 g/dL Normal 3.4-5.0 [facility] Comment on above: Performed By: #### U RTPCR #### [facility] [address] [place] [address] Dr. Dwight Waters Albumin/Globulin [Mass ratio] 1.1 {ratio} Normal [facility] Comment on above: Performed By: #### U RTPCR #### [facility] [address] [place] [address] Dr. Dwight Waters ALP [Catalytic activity/Vol] 92 U/L Normal 46-116 [facility] Comment on above: Performed By: #### U RTPCR #### [facility] [address] [place] [address] Dr. Dwight Waters ALT [Catalytic activity/Vol] 25 U/L Normal 16-63 [facility] Comment on above: Performed By: #### U RTPCR #### [facility] Laboratory [address] [place] [address] Dr. Dwight Waters Anion gap [Moles/Vol] 14.6 mmol/L Normal [facility] Comment on above: Performed By: #### U RTPCR #### [facility] Laboratory [address] [place] [address] Dr. Dwight Waters AST [Catalytic activity/Vol] 17 U/L Normal 15-37 [facility] Comment on above: Performed By: #### U RTPCR #### [facility] Laboratory [address] [place] [address] Dr. Dwight Waters Bilirubin [Mass/Vol] 0.6 mg/dL Normal 0.2-1.0 [facility] Comment on above: Performed By: #### U RTPCR #### [facility] Laboratory [address] [address] [address] Dwight Waters Calcium [Mass/Vol] 9.9 mg/dL Normal 8.5-10.1 [facility] Comment on above: Performed By: #### U RTPCR #### [facility] Laboratory [address] [address] [address] Dwight Waters Chloride [Moles/Vol] 106 mmol/L Normal 98-[address] [facility] Comment on above: Performed By: #### U RTPCR #### [facility] Laboratory [address] [place] [address] Dr. Dwight Waters CO2 [Moles/Vol] 24.2 mmol/L Normal 21.0-32.0 [facility] Comment on above: Performed By: #### U RTPCR #### [facility] Laboratory [address] [place] [address] Dr. Dwight Waters Creatinine [Mass/Vol] 1.58 mg/dL Critically high 0.70-1.30 [facility] Comment on above: Performed By: #### U RTPCR #### [facility] Laboratory [address] [place] [address] Dr. Dwight Waters EGFR-AF [place]LANDER 56 mL/min/1.73m2 Critically low >=60 [facility] Comment on above: Performed By: #### U RTPCR #### [facility] [address] [address] [address] Dwight Waters EGFR-NON AF [place]ER 46 mL/min/1.73m2 Critically low >=[address] [facility] Comment on above: Performed By: #### U RTPCR #### [facility] [address] [place] [address] Dr. Dwight Waters Globulin (S) [Mass/Vol] 3.5 g/dL Normal [facility] Comment on above: Performed By: #### U RTPCR #### [facility] Laboratory [address] [place] [address] Dr. Dwight Waters Glucose [Mass/Vol] 162 mg/dL Critically high 74-106 T [facility] Comment on above: Performed By: #### U RTPCR #### [facility] [address] [address] [address] Dwight Waters Potassium [Moles/Vol] 3.8 mmol/L Normal 3.5-5.1 [facility] Comment on above: Performed By: #### U RTPCR #### [facility] [address] [address] [address] Dwight Waters Protein [Mass/Vol] 7.3 g/dL Normal 6.4-8.2 [facility] Comment on above: Performed By: #### U RTPCR #### [facility] [address] [place] [address] Dr. Diwght Waters Sodium [Moles/Vol] 141 mmol/L Normal 136-145 [facility] Comment on above: Performed By: #### U RTPCR #### [facility] [address] [address] [address] Dwight Waters Urea nitrogen [Mass/Vol] 22.0 mg/dL Critically high 7.0-18.0 [facility] Comment on above: Performed By: #### U RTPCR #### [facility] Laboratory [address] [place] [address] Dr. Dwight Waters Urea nitrogen/Creatinine [Mass ratio] 13.9 mg/mg Normal [facility] Comment on above: Performed By: #### U RTPCR #### [facility] Laboratory [address] [place] [address] Dr. Dwight Waters Portable XR Chest Viewson [...] IMPRESSION: No acute cardiopulmonary disease [facility] Radiology Study observation (narrative) [facility] Portable XR Chest ViewsOrder ed By: Vladislav Omer on 05-15-2022 [facility] URINE DIPSTICK; REFLEX MICRO SCOPY; REFLEX CULTURE PERFORMABLEon 05-15-2022 Appearance (U) Clear Clear [facility] Color (U) Yellow Yellow [facility] Glucose Test strip (U) [Mass/Vol] 100 mg/dL Abnormal Negative [facility] Interpretation and review of laboratory results Abnormal [facility] Ketones (U) [Mass/Vol] Negative Negative [facility] Leukocyte esterase Test strip Ql (U) Large Abnormal Negative [facility] Nitrite Ql (U) Negative Negative [facility] pH (U) 6.0 [pH] 5.0 - 7.0 [facility] Protein (U) [Mass/Vol] 100 mg/dL Abnormal Negative [facility] RBC (U) [#/Vol] Large Abnormal Negative [facility] Specific gravity (U) [Rel density] 1.010 [facility] Urobilinogen (U) [Mass/Vol] 0.2 E.U./dL 0.2 E.U/dL, 1.0 E.U/dL [facility] URINE MICROSCOPIC WITH REFLE X TO CULTUREOrdered By: Rey Bro on 05-15-2022 Bacteria LM Ql (Urine sed) ABSENT ABSENT [facility] Epithelial cells.squamous LM Ql (Urine sed) ABSENT 1/hpf = 1+, 2-5/hpf = 2+, 0/hpf = 0+, ABSENT [facility] Interpretation and review of laboratory results Abnormal [facility] RBC LM.HPF (Urine sed) [#/Area] /[HPF] Abnormal 0 - 2 /HPF [facility] WBC LM.HPF (Urine sed) [#/Area] 10-20 Abnormal 0 - 5 /HPF [facility] CT ABD/PELVIS WO CONon 05-12 CT ABD/PELVIS WO CON Begin Addendum #[address] Lund 3:25 PM EST 05/11/2022. Begin Addendum #2 IMPRESSION below should also contain the followin. 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 The knik kidneys are progressively atrophic bilaterally compared to [...] of 06/14/2020 are no longer present. The knik distal right ureter is decompressed beyond this [...] with surgical history for renal graft and knik right urinary drainage, as a discrete ureteroneocystostomy is not identified, and the graft may be draining via a ureteroureterostomy. Urology consultation recommended. 3. The knik kidneys are bilaterally atrophic, with right renal sinus calcifications consistent with nonobstructing right knik renal calculi up to [address] [facility] CBC AUTO DIFFon 05-11-2022 BASO # 0.1 103/ul Normal 0.0-0.[address] [facility] Comment on above: Performed By: #### U RTPCR #### [facility] [address] [address] [address] Dwight Waters Basophils/100 WBC (Bld) 0.8 % Normal 0.2-2.0 [facility] Comment on above: Performed By: #### U RTPCR #### [facility] [address] [address] [address] Dwight Waters EO # 0.2 103/ul Normal 0.0-0.[address] [facility] Comment on above: Performed By: #### U RTPCR #### [facility] Laboratory [address] [place] [address] Dr. Dwight Waters Eosinophils/100 WBC (Bld) 2.5 % Normal 0.9-7.0 [facility] Comment on above: Performed By: #### U RTPCR #### [facility] [address] [place] [address] Dr. Dwight Waters Erythrocyte distribution width (RBC) [Ratio] 12.5 % Normal 11.0-15.0 [facility] Comment on above: Performed By: #### U RTPCR #### [facility] [address] [place] [address] Dr. Dwight Waters Hematocrit (Bld) [Volume fraction] 48.3 % Normal 42.0-54.0 [facility] Comment on above: Performed By: #### U RTPCR #### [facility] [address] [place] [address] Dr. Dwight Waters Hemoglobin (Bld) [Mass/Vol] 15.3 g/dL Normal 14.0-18.0 [facility] Comment on above: Performed By: #### U RTPCR #### [facility] [address] [place] [address] Dr. Dwight Waters IG # 0.01 10e3/ul Normal 0.00-0.03 [facility] Comment on above: Performed By: #### U RTPCR #### [facility] [address] [place] [address] Dr. Dwight Waters IG % 0.2 % Normal 0.0-0.[address] [facility] Comment on above: Performed By: #### U RTPCR #### [facility] [address] [place] [address] Dr. Dwight Waters LYMPH # 1.9 103/ul Normal 1.2-3.[address] [facility] Comment on above: Performed By: #### U RTPCR #### [facility] [address] [place] [address] Dr. Dwight Waters Lymphocytes/100 WBC (Bld) 29.8 % Normal 20.5-60.0 [facility] Comment on above: Performed By: #### U RTPCR #### [facility] [address] [place] [address] Dr. Dwight Waters MANUAL DIFF REQ NO Normal [facility] Comment on above: Performed By: #### U RTPCR #### [facility] [address] [place] [address] Dr. Dwight Waters MCH (RBC) [Entitic mass] 28.2 pg Normal 25.9-34.0 [facility] Comment on above: Performed By: #### U RTPCR #### [facility] [address] [place] [address] Dr. Dwight Waters MCHC (RBC) [Mass/Vol] 31.7 g/dL Normal 29.9-35.2 [facility] Comment on above: Performed By: #### U RTPCR #### [facility] [address] [place] [address] Dr. Dwight Waters MCV (RBC) [Entitic vol] 89.1 fL Normal 80.0-94.0 [facility] Comment on above: Performed By: #### U RTPCR #### [facility] [address] [place] [address] Dr. Dwight Waters MONO # 0.6 103/ul Normal 0.3-0.8 [facility] Comment on above: Performed By: #### U RTPCR #### [facility] [address] [place] [address] Dr. Dwight Waters Monocytes/100 WBC (Bld) 9.0 % Normal 1.7-12.[address] [facility] Comment on above: Performed By: #### U RTPCR #### [facility] [address] [place] [address] Dr. Dwight Waters NEUT # 3.6 103/ul Normal 1.4-6.[address] [facility] Comment on above: Performed By: #### U RTPCR #### [facility] [address] [place] [address] Dr. Dwight Waters Neutrophils/100 WBC (Bld) 57.7 % Normal 43.0-75.0 [facility] Comment on above: Performed By: #### U RTPCR #### [facility] [address] [place] [address] Dr. Dwight Waters Platelet mean volume (Bld) [Entitic vol] 9.9 fL Normal 9.5-13.5 [facility] Comment on above: Performed By: #### U RTPCR #### [facility] [address] [place] [address] Dr. Dwight Waters PLT 249 103/ul Normal 150-[address] [facility] Comment on above: Performed By: #### U RTPCR #### [facility] [address] [place] [address] Dr. Dwight Waters RBC 5.42 106/ul Normal 4.70-6.10 [facility] Comment on above: Performed By: #### U RTPCR #### [facility] [address] [place] [address] Dr. Dwight Waters WBC 6.3 103/ul Normal 4.0-11.0 [facility] Comment on above: Performed By: #### U RTPCR #### [facility] [address] [place] [address] Dr. Dwight Waters ER URINE PROFILEon 2 Bilirubin Ql (U) Unable to perform te sting due to color interference. Abnormal NEGATIVE [facility] Comment on above: Performed By: #### U RTPCR #### [facility] [address] [place] [address] Dr. Dwight Waters Clarity (U) TURBID Abnormal CLEAR [facility] Comment on above: Performed By: #### U RTPCR #### [facility] [address] [place] [address] Dr. Dwight Waters Color (U) RED Abnormal YELLOW [facility] Comment on above: Performed By: #### U RTPCR #### [facility] [address] [place] [address] Dr. Dwight Waters ERUAHD A micrscopic examina tion will be performed if indicated. Normal [facility] Comment on above: Performed By: #### U RTPCR #### [facility] [address] [place] [address] Dr. Dwight Waters Glucose Ql (U) Unable to perform te sting due to color interference. Abnormal NEGATIVE [facility] Comment on above: Performed By: #### U RTPCR #### [facility] [address] [place] [address] Dr. Dwight Waters Hemoglobin Ql (U) Unable to perform te sting due to color interference. Abnormal NEGATIVE [facility] Comment on above: Performed By: #### U RTPCR #### [facility] [address] [place] [address] Dr. Dwight Waters Ketones Ql (U) Unable to perform te sting due to color interference. Abnormal NEGATIVE [facility] Comment on above: Performed By: #### U RTPCR #### [facility] [address] [place] [address] Dr. Dwight Waters LEUKOCYTES Unable to perform te sting due to color interference. Abnormal NEGATIVE [facility] Comment on above: Performed By: #### U RTPCR #### [facility] [address] [place] [address] Dr. Dwight Waters Nitrite Ql (U) Unable to perform te sting due to color interference. Abnormal NEGATIVE [facility] Comment on above: Performed By: #### U RTPCR #### [facility] [address] [place] [address] Dr. Dwight Waters pH (U) 6.5 [pH] Normal 5-9 [facility] Comment on above: Performed By: #### U RTPCR #### [facility] [address] [place] [address] Dr. Dwight Waters SPEC GRAVITY 1.020 Normal 1.005-<=1.02 5 [facility] Comment on above: Performed By: #### U RTPCR #### [facility] [address] [place] [address] Dr. Dwight Waters UA PROTEIN Unable to perform te sting due to color interference. Normal NEGATIVE/ TRACE [facility] Comment on above: Performed By: #### U RTPCR #### [facility] [address] [place] [address] Dr. Dwight Waters UR MICRO IND INDICATED Normal [facility] Comment on above: Performed By: #### U RTPCR #### [facility] [address] [place] [address] Dr. Dwight Waters UROBILINOGEN Unable to perform te sting due to color interference. Normal 0.2 - 1.[address] [facility] Comment on above: Performed By: #### U RTPCR #### [facility] [address] [place] [address] Dr. Dwight Waters PROF 14(COMP METB)on 022 Albumin [Mass/Vol] 3.8 g/dL Normal 3.4-5.[address] [facility] Comment on above: Performed By: #### C MP #### [facility] [address] [place] [address] Dr. Dwight Waters Albumin/Globulin [Mass ratio] 1.1 {ratio} Normal [facility] Comment on above: Performed By: #### C MP #### [facility] [address] [place] [address] Dr. Dwight Waters ALP [Catalytic activity/Vol] 106 U/L Normal 46-[address] [facility] Comment on above: Performed By: #### C MP #### [facility] [address] [place] [address] Dr. Dwight Waters ALT [Catalytic activity/Vol] 30 U/L Normal 16-[address] [facility] Comment on above: Performed By: #### C MP #### [facility] [address] [place] [address] Dr. Dwight Waters Anion gap [Moles/Vol] 11.7 mmol/L Normal [facility] Comment on above: Performed By: #### C MP #### [facility] [address] [place] [address] Dr. Dwight Waters AST [Catalytic activity/Vol] 16 U/L Normal 15-[address] [facility] Comment on above: Performed By: #### C MP #### [facility] [address] [place] [address] Dr. Dwight Waters Bilirubin [Mass/Vol] 0.6 mg/dL Normal 0.2-1.0 [facility] Comment on above: Performed By: #### C MP #### [facility] [address] [place] [address] Dr. Dwight Waters Calcium [Mass/Vol] 9.1 mg/dL Normal 8.5-10.1 [facility] Comment on above: Performed By: #### C MP #### [facility] [address] [address] [address] Dwight Waters CO2 [Moles/Vol] 27.4 mmol/L Normal 21.0-32.0 [facility] Comment on above: Performed By: #### C MP #### [facility] [address] [place] [address] Dr. Dwight Waters Creatinine [Mass/Vol] 1.18 mg/dL Normal 0.70-1.30 [facility] Comment on above: Performed By: #### C MP #### [facility] [address] [place] [address] Dr. Dwight Waters EGFR-AF [place]OOK ISLANDER >60 Normal >=60 [facility] Comment on above: Performed By: #### C MP #### [facility] [address] [place] [address] Dr. Dwight Wtaers EGFR-NON AF [place] ISLANDER >60 Normal >=60 [facility] Comment on above: Performed By: #### C MP #### [facility] [address] [place] [address] Dr. Dwight Waters Globulin (S) [Mass/Vol] 3.6 g/dL Normal [facility] Comment on above: Performed By: #### C MP #### [facility] [address] [place] [address] Dr. Dwight Waters Glucose [Mass/Vol] 192 mg/dL Critically high 74-106 T [facility] Comment on above: Performed By: #### C MP #### [facility] [address] [place] [address] Dr. Dwight Waters Potassium [Moles/Vol] 4.1 mmol/L Normal 3.5-5.[address] [facility] Comment on above: Performed By: #### C MP #### [facility] [address] [place] [address] Dr. Dwight Waters Protein [Mass/Vol] 7.4 g/dL Normal 6.4-8.[address] [facility] Comment on above: Performed By: #### C MP #### [facility] [address] [place] [address] Dr. Dwight Waters Sodium [Moles/Vol] 142 mmol/L Normal 136-[address] [facility] Comment on above: Performed By: #### C MP #### [facility] [address] [place] [address] Dr. Dwight Waters Urea nitrogen [Mass/Vol] 17.0 mg/dL Normal 7.0-18.0 [facility] Comment on above: Performed By: #### C MP #### [facility] [address] [place] [address] Dr. Dwight Waters Urea nitrogen/Creatinine [Mass ratio] 14.4 mg/mg Normal [facility] Comment on above: Performed By: #### C MP #### [facility] [address] [place] [address] Dr. Dwight Waters URINE MICROSCOPIC ONLYon BACTERIA NONE SEEN Normal NONE SEEN [facility] Comment on above: Performed By: #### U RTPCR #### [facility] [address] [place] [address] Dr. Dwight Waters Bacteria identified Cx Nom (U) NOT INDICATED Normal [facility] Comment on above: Performed By: #### U RTPCR #### [facility] [address] [place] [address] Dr. Dwight Waters CAST NONE SEEN Normal NONE SEEN [facility] Comment on above: Performed By: #### U RTPCR #### [facility] [address] [place] [address] Dr. Dwight Waters Crystals LM Nom (Urine sed) NONE SEEN Normal NONE SEEN [facility] Comment on above: Performed By: #### U RTPCR #### [facility] [address] [place] [address] Dr. Dwight Waters Epithelial cells LM Ql (Urine sed) RARE Normal NONE SEEN /RARE [facility] Comment on above: Performed By: #### U RTPCR #### [facility] [address] [place] [address] Dr. Dwight Waters MUCOUS NONE SEEN Normal NONE SEEN [facility] Comment on above: Performed By: #### U RTPCR #### [facility] [address] [address] [address] Dwight Waters RBC (U) [#/Vol] /uL Abnormal 0-2 [facility] Comment on above: Performed By: #### U RTPCR #### [facility] [address] [place] [address] Dr. Dwight Waters WBC NONE SEEN Normal NONE SEEN [facility] Comment on above: Performed By: #### U RTPCR #### [facility] [address] [place] [address] Dr. Dwight Watesr K (Potassium)on 01-06-2020 Potassium [Moles/Vol] 4.4 mmol/L Normal 3.7-5.3 [facility] Comment on above: Performed By: #### K #### [facility] [address] [place] [address] Prepress Supervisor: Kehinde Woodward MD Potassiumon 01-06-2020 Potassium [Moles/Vol] 4.4 mmol/L 3.7 - 5.3 mmol/L [facility] Work Phone: Hemoglobin and Hematocrit, B loodon 10-24-2019 Hematocrit (Bld) [Volume fraction] 23.6 % Low 40.7 - 50.3 % [place], [place] Hemoglobin (Bld) [Mass/Vol] 7.3 g/dL Low 13 - 17 g/dL [place], [place] Interpretation and review of laboratory results Abnormal [place], [place] Hgb/Hcton 10-24-2019 Hematocrit (Bld) [Volume fraction] 23.6 % Low 40.7-50.3 [facility] Comment on above: Performed By: #### H H #### [facility] [address] [place], [place] [id number] Prepress Supervisor: Kehinde Woodward MD Hemoglobin (Bld) [Mass/Vol] 7.3 g/dL Low 13.0-17.0 [facility] Comment on above: Performed By: #### H H #### [facility] [address] [place] [address] Prepress Supervisor: Kehinde Woodward MD Hemoglobinon 08-27-2019 Hemoglobin (Bld) [Mass/Vol] 7.5 g/dL Low 13.0-17.0 [facility] Comment on above: Performed By: #### H GB #### [facility] [address] [place] [address] Prepress Supervisor: Kehinde Woodward MD Hemoglobin (Bld) [Mass/Vol] 7.5 g/dL Low 13 - 17 g/dL [place], [place] Interpretation and review of laboratory results Abnormal [place] Hemoglobinon 08-08-2019 Hemoglobin (Bld) [Mass/Vol] 8.3 g/dL Low 13.0-17.0 [facility] Comment on above: Performed By: #### H GB #### [address] [place], [place] [id number] Prepress Supervisor: Kehinde Woodward MD Hemoglobin (Bld) [Mass/Vol] 8.3 g/dL Low 13 - 17 g/dL [place], [place] Interpretation and review of laboratory results Abnormal [place] Hemoglobinon 08-04-2019 Hemoglobin (Bld) [Mass/Vol] 8.0 g/dL Low 13.0-17.0 [facility] Comment on above: Performed By: #### H GB #### [facility] [address] [place] [address] Prepress Supervisor: Kehinde Woodward MD Hemoglobin A1Con 08-03-2019 HbA1c (Bld) [Mass fraction] % Low 4.8-5.9 [facility] Comment on above: Result Comment: The ADA and AACC recommend providing the estimated average glucose result to permit better patient understanding of their HBA1c result. Performed By: #### G LYHGB #### [facility] [address] [place] [id number] Prepress Supervisor: Kehinde Woodward MD Glucose [Mass/Vol] mg/dL mg/dL [place], [place] Comment on above: The ADA and AACC rec ommend providing the estimated average glucose result to permit better patient understanding of their HBA1c result. HbA1c (Bld) [Mass fraction] % Low 4.8 - 5.9 % [place], [place] Interpretation and review of laboratory results Abnormal [place] Hemoglobinon 08-01-2019 Hemoglobin (Bld) [Mass/Vol] 8.1 g/dL Low 13.0-17.0 [facility] Comment on above: Performed By: #### H GB #### [facility] [address] [place] [id number] Prepress Supervisor: Kehinde Woodward MD Hemoglobin (Bld) [Mass/Vol] 8.1 g/dL Low 13 - 17 g/dL [place], [place] Interpretation and review of laboratory results Abnormal [place], [place] Hgb/Hcton 06-10-2019 Hematocrit (Bld) [Volume fraction] 24.3 % Low 40.7-50.3 [facility] Comment on above: Performed By: #### H H #### [facility] [address] [place] [id number] Prepress Supervisor: Kehinde Woodward MD Hemoglobin (Bld) [Mass/Vol] 7.4 g/dL Low 13.0-17.0 [facility] Comment on above: Performed By: #### H H #### [facility] [address] [place] [address] Prepress Supervisor: Kehinde Woodward MD Hemoglobinon 06-01-2019 Hemoglobin (Bld) [Mass/Vol] 7.2 g/dL Low 13.0-17.0 [facility] Comment on above: Performed By: #### H GB #### [facility] [address] [place] [address] Prepress Supervisor: Kehinde Woodward MD K (Potassium)on 01-14-2019 Potassium [Moles/Vol] 3.6 mmol/L Low 3.7-5.3 [facility] Comment on above: Performed By: #### K #### [facility] [address] [place] [address] Prepress Supervisor: Kehinde Woodward MD Otheron 10-19-2018 IMPRESSION: [...] by Toxicology Laboratory at [facility]. It has not been cleared or approved [...] Amitriptyline(50), Amphetamine(250), Atenolol(500), Barbiturates(1000), Benzoylecgonine(50), Buprenorphine(50), Bupropion(25), Caffeine(79092), Chlordiazepoxide(50), Chlorpheniramine(100), Chlorpromazine(50), Citalopram(100), Clonazepam(200), Cocaine(25), Codeine(200), [...] QASIM Hay TOXICOLOGY SCREEN URINE - UD [facility] 10-12-2018 Drugs identified Screen Nom (U) For Medical Purposes Only, Non-forensic, screen results are presumptive. No confirmatory testing will follow. Invalid Interpretation Code MISSY, [facility] Comment on above: This Liquid Chromato graphy Mass Spectrometry (LC/MS/MS) test was developed and its performance characteristics determined by Toxicology Laboratory at [facility]. It has not been cleared or approved [...] Amitriptyline(50), Amphetamine(250), Atenolol(500), Barbiturates(200), Benzoylecgonine(50), Buprenorphine(500), Bupropion(25), Caffeine(01462), Cannabinoids(THC)(50), Chlordiazepoxide(50), Chlorpheniramine(100), Chlorpromazine(50), Citalopram(100), Clonazepam(200), Cocaine(25), [...] 56 mm[Hg] Candie Almaguer MD Work Phone: [facility] 02-26-2024 09:07-0400 Heart rate 65 /min Candie Almaguer MD Work Phone: [facility] 02-26-2024 09:07-0400 Systolic blood pressure 113 mm[Hg] Candie Almaguer MD Work Phone: [facility] 02-26-2024 09:06-0400 Body height 170.2 cm Candie Almaguer MD Work Phone: [facility] 02-26-2024 09:06-0400 Body mass index (BMI) [Ratio] 28.9 kg/m2 Candie Almaguer MD Work Phone: [facility] 02-26-2024 09:06-0400 Body weight 83.69 kg Candie Almaguer MD Work Phone: [facility] 02-26-2024 09:06-0400 Respiratory rate 20 /min Candie Almaguer MD Work Phone: [facility] 02-26-2024 09:06-0400 SaO2% (BldA) [Mass fraction] 97 % Candie Almaguer MD Work Phone: [facility] 01-23-2024 15:04-0500 Body temperature 97.9 [degF] Kevin Prince MD Work Phone: [facility] 01-23-2024 15:04-0500 Diastolic blood pressure 67 mm[Hg] Kevin Prince MD Work Phone: [facility] 01-23-2024 15:04-0500 Heart rate 51 /min Kevin Prince MD Work Phone: [facility] 01-23-2024 15:04-0500 Respiratory rate 16 /min Kevin Prince MD Work Phone: [facility] 01-23-2024 15:04-0500 SaO2% (BldA) [Mass fraction] 94 % Kevin Prince MD Work Phone: [facility] 01-23-2024 15:04-0500 Systolic blood pressure 151 mm[Hg] Kevin Prince MD Work Phone: [facility] 01-23-2024 10:46-0500 Body mass index (BMI) [Ratio] 30.94 kg/m2 Kevin Prince MD Work Phone: [facility] 01-23-2024 10:46-0500 Body weight 89.6 kg Kevin Prince MD Work Phone: [facility] 01-18-2024 11:21-0500 Body height 170.2 cm Kevin Prince MD Work Phone: [facility] 01-06-2024 09:04-0500 Body height 170.2 cm Zuly Bruno EMS INSTRUCTOR Work Phone: [facility] 01-06-2024 09:04-0500 Body mass index (BMI) [Ratio] 32.42 kg/m2 Zuly Bruno EMS INSTRUCTOR Work Phone: [facility] 01-06-2024 09:04-0500 Body temperature 97.81 [degF] Zuly Bruno EMS INSTRUCTOR Work Phone: [facility] 01-06-2024 09:04-0500 Body weight 93.89 kg Zuly Aichholz EMS INSTRUCTOR Work Phone: [facility] 01-06-2024 09:04-0500 Diastolic blood pressure 70 mm[Hg] Zuly Aichholz EMS INSTRUCTOR Work Phone: [facility] 01-06-2024 09:04-0500 Heart rate 95 /min Zuly Aichholz EMS INSTRUCTOR Work Phone: [facility] 01-06-2024 09:04-0500 Respiratory rate 17 /min Zuly Aichholz EMS INSTRUCTOR Work Phone: [facility] 01-06-2024 09:04-0500 SaO2% (BldA) [Mass fraction] 99 % Zuly Aichholz EMS INSTRUCTOR Work Phone: [facility] 01-06-2024 09:04-0500 Systolic blood pressure 138 mm[Hg] Zuly Aichholz EMS INSTRUCTOR Work Phone: [facility] 09-11-2023 10:31-0400 Body temperature 97.81 [degF] Steve Yeison MBBS Work Phone: [facility] 09-11-2023 10:31-0400 Diastolic blood pressure 66 mm[Hg] Steve Yeison MBBS Work Phone: [facility] 09-11-2023 10:31-0400 Heart rate 70 /min Steve Yeison MBBS Work Phone: [facility] 09-11-2023 10:31-0400 Respiratory rate 20 /min Steve Yeison MBBS Work Phone: [facility] 09-11-2023 10:31-0400 SaO2% (BldA) [Mass fraction] 91 % Steve Yeison MBBS Work Phone: [facility] 09-11-2023 10:31-0400 Systolic blood pressure 129 mm[Hg] Steve Yeison MBBS Work Phone: [facility] 09-10-2023 15:50-0400 Body mass index (BMI) [Ratio] 31.99 kg/m2 Steve Yeison MBBS Work Phone: [facility] 09-10-2023 15:50-0400 Body weight 92.67 kg Steve Yeison MBBS Work Phone: [facility] 09-02-2023 07:32-0400 Body height 170.2 cm Steve Yeison MBBS Work Phone: [facility] 08-28-2023 13:33-0400 Body height 170.2 cm Steve Yeison MBBS Work Phone: [facility] 08-28-2023 13:33-0400 Body mass index (BMI) [Ratio] 32.12 kg/m2 Steve Yeison MBBS Work Phone: [facility] 08-28-2023 13:33-0400 Body temperature 97.3 [degF] Steve Yeison MBBS Work Phone: [facility] 08-28-2023 13:33-0400 Body weight 93.03 kg Steve Yeison MBBS Work Phone: [facility] 08-28-2023 13:33-0400 Diastolic blood pressure 41 mm[Hg] Steve Yeison MBBS Work Phone: [facility] 08-28-2023 13:33-0400 Heart rate 116 /min Steve Yeison MBBS Work Phone: [facility] 08-28-2023 13:33-0400 Systolic blood pressure 106 mm[Hg] Steve Yeison MBBS Work Phone: [facility] 06-12-2023 14:50-0400 Body mass index (BMI) [Ratio] 33.8 kg/m2 Rebeca Gutierrez TAKE UP SUPERVISOR-TOURIST INFORMATION OFFICER Work Phone: [facility] 06-12-2023 14:50-0400 Body temperature 97.3 [degF] Rebeca Gutierrez TAKE UP SUPERVISOR-TOURIST INFORMATION OFFICER Work Phone: [facility] 06-12-2023 14:50-0400 Body weight 97.89 kg Rebeca Gutierrez TAKE UP SUPERVISOR-TOURIST INFORMATION OFFICER Work Phone: [facility] 06-12-2023 14:50-0400 Diastolic blood pressure 77 mm[Hg] Rebeca Gutierrez TAKE UP SUPERVISOR-TOURIST INFORMATION OFFICER Work Phone: [facility] 06-12-2023 14:50-0400 Heart rate 76 /min Rebeca Gutierrez TAKE UP SUPERVISOR-TOURIST INFORMATION OFFICER Work Phone: [facility] 06-12-2023 14:50-0400 Systolic blood pressure 146 mm[Hg] Rebeca Gutierrez TAKE UP SUPERVISOR-TOURIST INFORMATION OFFICER Work Phone: [facility] 01-16-2023 08:57-0500 Body height 170.2 cm [facility] Work Phone: [facility] 01-16-2023 08:57-0500 Body mass index (BMI) [Ratio] 33.66 kg/m2 [facility] Work Phone: [facility] 01-16-2023 08:57-0500 Body temperature 97.3 [degF] [facility] Work Phone: [facility] 01-16-2023 08:57-0500 Body weight 97.48 kg [facility] Work Phone: [facility] 01-16-2023 08:57-0500 Diastolic blood pressure 75 mm[Hg] [facility] Work Phone: [facility] 01-16-2023 08:57-0500 Heart rate 76 /min [facility] Work Phone: [facility] 01-16-2023 08:57-0500 Systolic blood pressure 142 mm[Hg] [facility] Work Phone: [facility] 09-10-2022 09:38-0400 Body height 170.2 cm Ryan Hurt MD Work Phone: [facility] 09-10-2022 09:38-0400 Body mass index (BMI) [Ratio] 33.67 kg/m2 Ryan Hurt MD Work Phone: [facility] 09-10-2022 09:38-0400 Body weight 97.52 kg Ryan Hurt MD Work Phone: [facility] 09-10-2022 09:38-0400 Diastolic blood pressure 83 mm[Hg] Ryan Hurt MD Work Phone: [facility] 09-10-2022 09:38-0400 Heart rate 64 /min Ryan Hurt MD Work Phone: [facility] 09-10-2022 09:38-0400 SaO2% (BldA) [Mass fraction] 96 % Ryan Hurt MD Work Phone: [facility] 09-10-2022 09:38-0400 Systolic blood pressure 129 mm[Hg] Ryan Hurt MD Work Phone: [facility] 07-07-2022 13:48-0400 Diastolic blood pressure 76 mm[Hg] Ryan Hurt MD Work Phone: [facility] 07-07-2022 13:48-0400 Heart rate 82 /min Ryan Hurt MD Work Phone: [facility] 07-07-2022 13:48-0400 SaO2% (BldA) [Mass fraction] 96 % Ryan Hurt MD Work Phone: [facility] 07-07-2022 13:48-0400 Systolic blood pressure 141 mm[Hg] Ryan Hurt MD Work Phone: 3(644)[phone] [address] 06-27-2022 13:32-0400 Body height 170.2 cm Ryan Hurt MD Work Phone: 9(599)[phone] [address] 06-27-2022 13:32-0400 Body mass index (BMI) [Ratio] 34.24 kg/m2 Ryan Hurt MD Work Phone: 3(206)[phone] [address] 06-27-2022 13:32-0400 Body temperature 98.6 [degF] Ryan Hurt MD Work Phone: 4(176)[phone] [place] [address] 06-27-2022 13:32-0400 Body weight 99.16 kg Ryan Hurt MD Work Phone: 0(775)[phone] [address] 06-27-2022 13:32-0400 Diastolic blood pressure 78 mm[Hg] Ryan Hurt MD Work Phone: [facility] 06-27-2022 13:32-0400 Heart rate 77 /min Ryan Hurt MD Work Phone: [facility] 06-27-2022 13:32-0400 SaO2% (BldA) [Mass fraction] 95 % Ryan Hurt MD Work Phone: [facility] 06-27-2022 13:32-0400 Systolic blood pressure 121 mm[Hg] Ryan Hurt MD Work Phone: [facility] 06-27-2022 10:52-0400 Body height 170.2 cm Rena Brewster RN [facility] 06-27-2022 10:52-0400 Body mass index (BMI) [Ratio] 34.46 kg/m2 Rena Brewster RN [facility] 06-27-2022 10:52-0400 Body temperature 98.2 [degF] Rena Brewster RN [facility] 06-27-2022 10:52-0400 Body weight 99.79 kg Rena Brewster RN [facility] 06-27-2022 10:52-0400 Diastolic blood pressure 73 mm[Hg] Rena Brewster RN [facility] 06-27-2022 10:52-0400 Heart rate 78 /min Rena Brewster RN [facility] 06-27-2022 10:52-0400 Respiratory rate 20 /min Rena Brewster RN [facility] 06-27-2022 10:52-0400 SaO2% (BldA) [Mass fraction] 97 % Rena Brewster RN [facility] 06-27-2022 10:52-0400 Systolic blood pressure 135 mm[Hg] Rena Brewster RN [facility] 06-12-2022 14:23-0400 Body mass index (BMI) [Ratio] 34.59 kg/m2 Steve Farrari MBBS Work Phone: [facility] 06-12-2022 14:23-0400 Body temperature 97 [degF] Steve Farrari MBBS Work Phone: [facility] 06-12-2022 14:23-0400 Body weight 100.2 kg Steve Yeison MBBS Work Phone: [facility] 06-12-2022 14:23-0400 Diastolic blood pressure 66 mm[Hg] Steve Yeison MBBS Work Phone: [facility] 06-12-2022 14:23-0400 Heart rate 63 /min Steve Yeison MBBS Work Phone: [facility] 06-12-2022 14:23-0400 Systolic blood pressure 133 mm[Hg] Steve LEIGH Work Phone: [facility] 05-20-2022 15:21-0400 Body temperature 97.9 [degF] Gian Villatoro MD Work Phone: [facility] 05-20-2022 15:21-0400 Diastolic blood pressure 64 mm[Hg] Gian Villatoro MD Work Phone: [facility] 05-20-2022 15:21-0400 Heart rate 55 /min Gian Villatoro MD Work Phone: [facility] 05-20-2022 15:21-0400 Respiratory rate 15 /min Gian Villatoro MD Work Phone: [facility] 05-20-2022 15:21-0400 SaO2% (BldA) [Mass fraction] 95 % Gian Villatoro MD Work Phone: [facility] 05-20-2022 15:21-0400 Systolic blood pressure 145 mm[Hg] Gian Villatoro MD Work Phone: [facility] 05-19-2022 12:15-0400 Body mass index (BMI) [Ratio] 35.87 kg/m2 Gian Villatoro MD Work Phone: [facility] 05-19-2022 12:15-0400 Body weight 103.92 kg Gian Villatoro MD Work Phone: [facility] Comment on above: standing scale 05-16-2022 16:19-0400 Body height 170.2 cm Gian Villatoro MD Work Phone: [facility] 10-19-2018 08:44-0500 BMI (Body Mass Index) 26.58 kg/m2 Christin Samycolt [facility] Work Phone: 10-19-2018 08:44-0500 BP Diastolic [...] (Body Mass Index) 27.24 kg/m2 [facility] Work Phone: 10-12-2018 09:50-0500 Body Temperature 98.6 [degF] [facility] Work Phone: 10-12-2018 09:50-0500 BP Diastolic 80 mm[Hg] [facility] Work Phone: 10-12-2018 09:50-0500 BP Systolic 157 mm[Hg] [facility] Work Phone: 10-12-2018 09:50-[address] [facility] Work Phone: 10-12-2018 09:50-0500 Pulse (Heart Rate) 94 /min [facility] Work Phone: 10-12-2018 09:50-0500 Weight 78.[address] [facility] Work Phone: Encounters Encounter Date Encounter Type Care Provider Facility Start: 03-24-2024 End: 03-24-2024 Patient encounter procedure Angel Carpio [facility],PharmD [facility] [place] Start: 03-24-2024 End: 03-24-2024 ambulatory JOHNNA BRINK [...] Available Start: 03-02-2024 End: 03-02-2024 ambulatory Meka Muonz [facility] [place] Start: 03-02-2024 End: 03-02-2024 Patient encounter procedure Meka Munoz [facility] [place] Start: 03-01-2024 ambulatory ZULY KIANA Facility: [facility] Start: 03-01-2024 End: 03-01-2024 ambulatory JOHNNA BRINK Not Available Start: 02-26-2024 [facility] Start: 02-26-2024 [facility]ulatory [facility] Start: 02-26-2024 End: 02-26-2024 Office outpatient new 30 minutes Candie Almaguer MD Work Phone: [employer] [facility] Comment on above: Heart failure, diast olic, acute (Primary Dx) Start: 02-25-2024 End: 02-25-2024 ambulatory FIDELINA SANCHEZ Not Available Start: 02-23-2024 End: 02-23-2024 ambulatory PALMA PALACIOS Not Available Start: 02-11-2024 End: 02-11-2024 ambulatory ZULY KIANA Not Available Start: 01-16-2024 Encounter for other preprocedural examination KELVIN PACHECO [facility] Start: 01-16-2024 End: 01-23-2024 Evaluation and management of inpatient KEVIN PRINCE Facility:[facility] Start: 01-16-2024 End: 01-23-2024 Evaluation and management of inpatient Kevin Prince MD Work Phone: [id number] Comment on above: Pleural effusion on right Start: 01-16-2024 End: 01-23-2024 Patient encounter status Kevin Prince MD Work Phone: [facility] Work Phone: Start: 01-12-2024 End: 01-12-2024 ambulatory Angel Fete RPh,PharmD [facility] [place] Start: 01-12-2024 End: 01-12-2024 Patient encounter procedure Angel Fete RPh,PharmD [facility] [place] Start: 01-08-2024 Clinisync Result Encounter Generic External Data Provider [facility] External Department Unsolicited Start: 01-08-2024 Clinisync Result Encounter Generic External Data Provider [facility] External Department Unsolicited Start: 01-06-2024 End: 01-06-2024 ambulatory ZULY ELENZ Not Available Start: 01-06-2024 End: 01-06-2024 Office outpatient visit 25 minutes Zuly Kiana EMS INSTRUCTOR Work Phone: [facility] Comment on above: Bilateral lower extr emity edema (Primary Dx); 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); Atherosclerosis 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); Obesity (BMI 30-39.9); DARLENE (obstructive sleep apnea); Tremor; Immunocompromised ([facility]); Primary hypertension ([facility]); Shortness of breath Start: 01-01-2024 Clinisync Result Encounter Generic External Data Provider [facility] External Department Unsolicited Start: 01-01-2024 Clinisync Result Encounter Generic External Data Provider [facility] External Department Unsolicited Start: 11-03-2023 End: 11-03-2023 ambulatory ZULY BRUNO Not Available Start: 10-06-2023 ambulatory Angel Madsencolt [facility],PharmD [facility] [place] Start: 10-06-2023 Patient encounter procedure Angelnoah Carpio [facility],PharmD [facility] [place] Start: 09-29-2023 [facility] Start: 09-24-2023 ambulatory [facility] Facility: [facility] Start: 09-23-2023 ambulatory HAKEEM ALAMO Facility :[facility] Start: 09-15-2023 [facility] Start: 08-28-2023 End: 09-11-2023 Evaluation and management of inpatient KEVIN NIKI Facility:[facility] Start: 08-28-2023 End: 09-11-2023 Evaluation and management of inpatient Steve S Yeison LEIGH Work Phone: [id number] Start: 08-28-2023 ambulatory STEVE LATHAM Facility:[facility] Start: 08-28-2023 End: 08-28-2023 Office outpatient [...] [facility] [place] [facility] [place] Start: 08-19-2023 Patient encounter procedure Meka Munoz [facility] [place] Start: 06-12-2023 ambulatory SELF SELF Facility:[facility] Start: 06-12-2023 End: 06-12-2023 Office outpatient visit 25 minutes Steve LEIGH Work Phone: [facility] Comment on above: 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) Start: 06-10-2023 ambulatory Maren Bar RPh,PharmD [facility] [place] Start: 06-10-2023 Patient encounter procedure Maren Bar RPh,PharmD [facility] [place] Start: 05-26-2023 ambulatory ZULY KIANA Facility: [facility] Start: 04-28-2023 End: 04-29-[address] DOCTOR EVANS Facility:[facility] Start: 04-13-2023 End: 04-13-2023 ambulatory [facility] Start: 03-12-2023 ambulatory Angel Fete RPh,PharmD [facility] [place] Start: 03-12-2023 Patient encounter procedure Angel Fete RPh,PharmD [facility] [place] Start: 03-10-2023 ambulatory Angel Fete RPh,PharmD [facility] [place] Start: 03-10-2023 Patient encounter procedure Angel Fete RPh,PharmD [facility] [place] Start: 03-02-2023 End: 03-03-[address] DOCTOR EVANS Facility:[facility] Start: 01-16-2023 End: 01-16-2023 Office outpatient visit 25 minutes Daisha Max DO Work Phone: [facility] Comment on above: Abnormal blood chemi stry [...] MD Work Phone: [facility] Comment on above: BPH with obstruction /lower urinary tract symptoms (Primary Dx); Encounter for screening for malignant neoplasm of prostate Start: 08-28-2022 End: 08-29-2022 ambulatory ROB BRUNO Facility:[facility] Start: 08-14-2022 End: 08-15-[address] DOCTOR EVANS Facility:[facility] Start: 07-07-2022 End: 07-07-2022 Patient encounter procedure Ryan Hurt MD Work Phone: [facility] Comment on above: Other hydronephrosis (Primary Dx); [...] 25 minutes Ryan Hurt MD Work Phone: [facility] Comment on above: Other hydronephrosis (Primary Dx) [...] End: 06-12-2022 Office outpatient visit 25 minutes Steev LEIGH Work Phone: [facility] [...] [facility] [place] Work Phone: [facility] [place] Start: 03-14-2022 Patient encounter procedure Comfort Rivera [facility] Work Phone: [facility] [place] Start: 06-14-2021 End: 06-14-2021 ambulatory Comfort Rivera [facility] Work Phone: [facility] Start: 06-14-2021 Patient encounter procedure Comfort Rivera [facility] Work Phone: [facility] Start: 01-20-2020 End: 01-27-2020 Patient encounter procedure PEPE CASE Facility:[facility] Start: 01-06-2020 End: 01-07-2020 Patient encounter procedure RENA GUDINO [facility] Start: 01-06-2020 End: 01-06-2020 Subsequent hospital visit by physician [facility] Start: 10-24-2019 End: 10-25-2019 Patient encounter procedure TANA CAMPA [facility] Start: 10-24-2019 End: 10-24-2019 Subsequent hospital visit by physician [facility] Start: 08-27-2019 End: 08-28-2019 Patient encounter procedure RENA GUDINO [facility] Start: 08-27-2019 End: 08-27-2019 Subsequent hospital visit by physician [facility] Start: 08-08-2019 End: 08-09-2019 Patient encounter procedure ROB PATINO [facility] Start: 08-08-2019 End: 08-08-2019 Subsequent hospital visit by physician [facility] Start: 08-03-2019 End: 08-04-2019 Patient encounter procedure ROB PATINO [facility] Start: 08-03-2019 End: 08-03-2019 Subsequent hospital visit by physician [facility] Start: 08-01-2019 End: 08-02-2019 [facility] Start: 08-01-2019 End: 08-01-2019 Subsequent hospital visit by physician [facility] Start: 06-10-2019 End: 06-11-2019 Patient encounter procedure RENA GUDINO [facility] Start: 06-01-2019 End: 06-02-2019 Patient encounter procedure RENA GUDINO [facility] Start: 01-14-2019 End: 01-15-2019 Patient encounter procedure RNEA GUDINO [facility] Start: 11-17-2018 End: 11-17-2018 Patient encounter procedure Fidelina Pierson [facility] Pre Transplant Office Comment on above: Social Work Follow-u p Start: 10-19-2018 End: 10-19-2018 Patient encounter [facility] Pre Transplant Office Comment [...] Start: 10-13-2018 End: 10-13-2018 Patient encounter procedure [facility] Pre Transplant Office Comment on above: Reschedule Outside Medical Allan rds Request Start: 10-12-2018 End: 10-12-2018 Patient encounter procedure Sophie Cary [facility] Pre Transplant Office Comment on above: Alcoholic cirrhosis, unspecified whether ascites present (Primary Dx); Pre-transplant evaluation for liver transplant Start: 10-12-2018 End: 10-12-2018 Office outpatient new 60 minutes Alfredito Feliz Kiarapuja Work Phone: [facility] Pre Transplant Office Comment on [...] [facility] Work Phone: [facility] Procedures Date Procedure Procedure Detail Performing [...] on above: Performed By: #### X M ####[facility] (DEFAULT)[address] [place] [address] Start: 01-22-2024 Assay of magnesium Just in [...] Start: 01-20-2024 ITRACONAZOLE LEVEL Jennifer norbert Alarcon [facility] Work Phone: Start: 01-20-2024 Oscillating positive expiratory [...] nos quantifica tion each organism Fidelina Alarcon [facility] Work Phone: Start: 01-18-2024 Echocardiography ZULY VANG [...] AURIS SCREEN BY PCR Carol Ann Capps TAKE UP SUPERVISOR-INCIDENT RESPONSE SPECIALIST Work Phone: Start: 01-08-2024 ALL CBC WITH [...] AURIS SCREEN BY PCR Carol Ann Capps TAKE UP SUPERVISOR-INCIDENT RESPONSE SPECIALIST Work Phone: Start: 08-28-2023 CBC AND [...] above: Performed By: #### C MP #### [facility] [address] [place] [address] Dr. Dwight Waters Start: 07-07-2022 Rmvl nfros [...] Pr ovider Start: 08-27-2019 Blood count hemoglobin Erna Rist Work Phone: Start: 08-08-2019 Blood count hemoglobin ROB KASMANI Start: 08-08-2019 Blood count hemoglobin Rob Kasmani Work Phone: Start: 08-03-2019 Hemoglobin glycosylated a1c ROB KASMANI Start: 08-03-2019 Hemoglobin glycosylated a1c Rob Kasmani Work Phone: Start: 08-01-2019 Blood count hemoglobin Rob Kasmani Work Phone: Start: 07-25-2019 History of renal transplant De ceased-donor kidney transplant recipient Cmofort Rivera [facility] [...] 09-20-2029 Screening for malignant neoplasm of colon [facility] Start: 03-28-2025 Potassium [Moles/volume] in Serum or Plasma POTASSIUM [facility] Start: 03-21-2025 Potassium [Moles/volume] in Serum or Plasma POTASSIUM [facility] Start: 02-28-2025 Potassium [Moles/volume] in Serum or Plasma POTASSIUM [facility] Start: 01-23-2025 Potassium [Moles/volume] in Serum or Plasma POTASSIUM [facility] Start: 08-31-2024 Screening for malignant neoplasm of lung [facility] Start: 06-17-2024 End: 06-17-2024 ambulatory [facility] Start: 06-17-2024 End: 06-17-2024 Patient encounter procedure [facility] Start: 03-22-2024 Fasting lipid profile LIPID SCREENING [facility] Start: 03-22-2024 Lipid panel [facility] Start: 02-26-2024 End: 02-26-2024 Patient encounter procedure 02/26/2024 9:30 AM EDT Office Visit [facility] [address] [place] [address] Candie Almaguer MD [address] [place] [address] [employer] [facility] Kehinde Conner [facility] Start: 02-11-2024 End: 02-11-2024 Patient encounter procedure 02/11/2024 10:30 AM EDT Office Visit [facility] [address] [place] [address] Zuly Bruno, BA [address] [place] [phone] [facility] Start: 02-09-2024 End: 02-09-2024 Telemedicine consultation with patient 02/09/2024 3:30 PM EDT Telemedicine Infectious Diseases Care [facility] [address] [facility] [address] [place] [phone] Hakeem Alamo MD [address] [facility] [address] [place] [address] Infectious Diseases Care [facility] Start: 01-15-2024 End: 01-15-2024 ambulatory [facility] Start: 01-15-2024 End: 01-15-2024 Patient encounter procedure [facility] Start: 01-06-2024 End: 01-06-2026 Echocardiogram 2D complete Echocardiogram 2D complete Echocardiography Routine DARLENE (obstructive sleep apnea) Primary hypertension (CMS/HCC) Bilateral lower extremity edema Shortness of breath Expected: 01/06/2024 (Approximate), Expires: 01/06/2026 [facility] Work Phone: Comment on above: Expected: 01/06/2024 (Approximate), Expi res: 01/06/2026 Start: 01-06-2024 End: 01-06-2024 Patient encounter procedure 01/06/2024 9:00 AM EST [facility] [address] [place] [phone] Zuly Bruno, BA [address] [place] [phone] [facility] Start: 12-08-2023 End: 09-07-2024 CT Chest WO contrast [facility] Work Phone: Start: 12-01-2023 COVID-19 VACCINE (2 - Moderna risk series) COVID-19 VACCINE (2 - Moderna risk series) [facility] Start: 09-23-2023 End: 09-23-2023 ambulatory Infectious Diseases Care [facility] Start: 09-23-2023 End: 09-23-2023 Telemedicine consultation with patient 09/23/2023 4:00 PM EDT Telemedicine Infectious Diseases Care [facility] [address] [place] [address] Hakeem Alamo MD [address] [place], [place] [id number] Infectious Diseases Care [facility] Start: 09-15-2023 End: 09-10-2024 ITRACONAZOLE LEVEL [facility] Start: 08-25-2023 End: 08-25-2024 ALLOSCREEN RECIPIENT (POST TX PRA) ALLOSCREEN RECIPIENT (POST TX PRA) Lab Routine Kidney replaced by transplant Aftercare following organ transplant Immunosuppressed status High risk medication use Other general symptoms and signs Abnormal blood chemistry Expected: 08/25/2023, Expires: 08/25/2024 [facility] Comment on above: Expected: 08/25/2023, Expires: Start: 07-31-2023 Influenza vaccination [facility] Start: 06-12-2023 End: 06-12-2023 Patient encounter procedure 06/12/2023 Office Visit Transplant Surgery Steve Latham MBBS [address] [place] [address] [facility] Start: 03-11-2023 End: 03-11-2023 Telemedicine consultation with patient 03/11/2023 Telemedicine UrologRyan Batista MD [address] [facility] [address] [place] [address] [facility] Start: 01-16-2023 End: 01-16-2023 Patient encounter procedure 01/16/2023 Office Visit Transplant Surgery [facility] Start: 10-31-2022 End: 10-31-2022 Patient encounter procedure 10/31/2022 Office Visit Transplant Surgery Steve Latham, JOSHBS [address] [place] [address] [facility] Start: 09-10-2022 End: 09-10-2023 PSA screening PSA, SCREENING Lab Routine BPH with obstruction/lower urinary tract symptoms Encounter for screening for malignant neoplasm of prostate Expected: 09/10/2022 (Approximate), Expires: 09/10/2023 [facility] Comment on above: Expected: 09/10/2022 (Approximate), Expi res: 09/10/2023 Start: 08-11-2022 End: 08-11-2022 Patient encounter procedure 08/11/2022 Office Visit Ryan Websetr MD [address] [facility] [address] [place] [address] Urology Eye [facility] Start: 07-31-2022 Influenza vaccination [facility] Start: 07-07-2022 End: 07-07-2022 Patient encounter procedure 07/07/2022 Office Visit Ryan Webster MD [address] [facility] [address] [place] [id number] Urolog Eye [facility] Start: 07-07-2022 End: 07-07-2023 FLUORO IMAGING FOR UROLOGY [facility] Comment on above: Expected: 07/07/2022, Expires: 3 1 Occurrences starti ng 07/07/2022 until 07/07/2022 Start: 06-27-2022 End: 06-27-2022 Patient encounter procedure 06/27/2022 Office Visit Urology Ryan Hurt MD [address] [facility] [address] [place] [address] [facility] Start: 06-27-2022 End: 06-27-2023 Basic metabolic 2000 panel - Serum or Plasma BASIC METABOLIC PANEL Lab Routine Other hydronephrosis Expected: 06/27/2022, Expires: 06/27/2023 [facility] Comment on above: Expected: 06/27/2022, Expires: Start: 06-27-2022 End: 06-27-2022 Patient encounter procedure 06/27/2022 Appointment Computerized Tomography Scan Ryan Hurt MD [address] [facility] [address] [place] [address] Department of Radiology Start: 06-15-2022 End: 05-16-2023 CT Abdomen and Pelvis WO contrast CT ABDOMEN/PELVIS WITHOUT CONTRAST Imaging Routine FAYE (acute kidney injury) Expected: 06/15/2022 (Approximate), Expires: 05/16/2023 [facility] Work Phone: Comment on above: Expected: 06/15/2022 (Approximate), Expi res: 05/16/2023 Start: 06-12-2022 End: 06-12-2022 Patient encounter procedure 06/12/2022 Office Visit Transplant Surgery Steve Latham, LU [address] [place] [address] [facility] Start: 06-11-2022 End: 06-11-2023 BK VIRUS DNA QN, PCR, PLASMA BK VIRUS DNA QN, PCR, PLASMA Lab Routine Kidney replaced by transplant Liver replaced by transplant Abnormal blood chemistry Expected: 06/11/2022, Expires: 06/11/2023 [facility] Comment on above: Expected: 06/11/2022, Expires: Start: 06-04-2022 End: 06-04-2022 Patient encounter procedure 06/04/2022 Office Visit [facility] Start: 10-18-2021 End: 10-18-2021 Patient encounter procedure 10/18/2021 Office Visit Transplant Surgery Steve Latham, LU [address] [place] [phone] [facility] Start: 07-31-2021 Influenza vaccination INFLUENZA VACCINE (#1) [facility] Start: 07-26-2021 End: 07-26-2021 Patient encounter procedure 07/26/2021 Office Visit Transplant Surgery [facility] Start: 2021 Prostate specific antigen measurement [facility] Start: 2021 Screening for malignant neoplasm of lung LUNG CANCER SCREENING [facility] Start: 2021 Zoster vaccine hzv live for subcutaneous use ZOSTER (SHINGLES) VACCINE (1 of 2) [facility] Start: 09-20-2020 Colonoscopy COLORECTAL CANCER SCREENING DISCUSSION [facility] Start: 09-20-2020 Screening for malignant neoplasm of colon [facility] Start: 07-31-2019 Influenza vaccination Flu vaccine (#1) [place], [place] Start: 05-22-2019 Annual Wellness Visit (AWV) Annual Wellness Visit (AWV) [place] Start: 04-18-2019 End: 10-19-2019 Ultrasonography of abdomen US ABDOMEN RUQ/LIVER/GB Routine Cirrhosis of liver without ascites, unspecified hepatic cirrhosis type Expected: 04/18/2019 (Approximate), Expires: 10/19/2019 [facility] Work Phone: Comment on above: Expected: 04/18/2019 (Approximate), Expi res: 10/19/2019 Start: 01-25-2019 End: 01-25-2019 Ambulatory 01/25/2019 Office Visit Gastroenterology Christin Elizabeth, TAKE UP SUPERVISOR-TOURIST INFORMATION OFFICER [address] [place] [address] Division of Gastroenterology and Hepatology Gavin Start: 11-19-2018 End: 11-19-2018 Ambulatory 11/19/2018 Appointment [facility] Start: 11-19-2018 End: 11-19-2018 Ambulatory [facility] Start: 10-19-2018 End: 10-19-2018 Ambulatory Ultrasound Jakob Start: 10-12-2018 End: 10-12-2019 Hemoglobin A1c/Hemoglobin.total mass fraction (Bld) HEMOGLOBIN A1C Routine Alcoholic cirrhosis, unspecified whether ascites present Pre-transplant evaluation for liver transplant Expected: 10/12/2018, Expires: 10/12/2019 [facility] Work Phone: Comment on above: Expected: 10/12/2018, Expires: 9 Start: 10-12-2018 End: 10-12-2019 TYPE AND SCREEN - NOT FOR TRANSFUSION TYPE AND SCREEN - NOT FOR TRANSFUSION Routine Alcoholic cirrhosis, unspecified whether ascites present Pre-transplant evaluation for liver transplant Expected: 10/12/2018, Expires: 10/12/2019 [facility] Work Phone: Comment on above: Expected: 10/12/2018, Expires: 9 Start: 07-31-2018 Influenza vaccination INFLUENZA VACCINE (#1) [facility] Work Phone: Start: 2011 Fasting lipid profile LIPID SCREENING [facility] Work Phone: Start: 2011 Lipid screen Lipid screen [place], [place] Start: 1990 DTaP/Tdap/Td vaccine (1 - Tdap) DTaP/Tdap/Td vaccine (1 - Tdap) [place], [place] Start: 1990 Hepatitis B vaccination HEP B VACCINE (1 of 3 - 19+ 3-dose series) [facility] Start: 1990 Hepatitis B Vaccine (1 of 3 - Risk Recombivax 3-dose series) Hepatitis B Vaccine (1 of 3 - Risk Recombivax 3-dose series) [place] Start: 1990 Third diphtheria, tetanus and acellular pertussis (DTaP) vaccination [facility] Start: 1990 Zoster vaccine hzv live for subcutaneous use ZOSTER (SHINGLES) VACCINE (1 of 2) [facility] Start: 1990 [facility] Start: 1989 Tetanus vaccination TETANUS [facility] Start: 1986 HIV screen HIV screen [place], [place] Start: 02-17-1984 HIV screening HIV SCREENING DISCUSSION [facility] Work Phone: Start: 1983 COVID-19 VACCINE (1) COVID-19 VACCINE (1) [facility] Start: 1982 DTaP/Tdap/Td vaccine (1 - Tdap) DTaP/Tdap/Td vaccine (1 - Tdap) [place] Start: 1977 Pneumococcal 0-64 years Vaccine (1 of 3 - PCV13) Pneumococcal 0-64 years Vaccine (1 of 3 - PCV13) [place] Start: 1977 PNEUMOCOCCAL VACCINE SERIES (1 - PCV) PNEUMOCOCCAL VACCINE SERIES (1 - PCV) [facility] Start: 1977 PNEUMOCOCCAL VACCINE SERIES (1 of 2 - PCV) PNEUMOCOCCAL VACCINE SERIES (1 of 2 - PCV) [facility] Start: 1977 [facility] Start: 02-17-1976 COVID-19 VACCINE (#1) COVID-19 VACCINE (#1) [facility] Start: 02-17-1976 [facility] Start: 1971 COVID-19 VACCINE (#1) COVID-19 VACCINE (#1) [facility] Start: 1971 Hepatitis B vaccination HEP B VACCINE (1 of 3 - 3-dose series) [facility] Start: 1971 Medicare Annual Wellness (AWV) Medicare Annual Wellness (AWV) [facility] Start: 1971 Screening for malignant neoplasm of colon [facility] Start: 1971 Tetanus vaccination [facility] BK VIRUS DNA QN, PCR , PLASMA BK VIRUS DNA QN, PCR, PLASMA Lab Routine Kidney replaced by transplant Liver replaced by transplant Abnormal blood chemistry 06/12/2022 3:38 PM EDT [facility] CALCULI, URINARY (KIDNEY STONE) CALCULI, URINARY (KIDNEY STONE) Fluids Routine 05/19/2022 8:16 AM EDT [facility] Work Phone: CANNABINOIDS, QUANT (URINE)THC CONFIRMATION CANNABINOIDS, QUANT (URINE)THC CONFIRMATION Routine Alcoholic cirrhosis, unspecified whether ascites present ESRD (end stage renal disease) on dialysis Pre-transplant evaluation for liver transplant 10/12/2018 12:57 PM [facility] Work Phone: End: 09-10-2024 CHEM 6 (LYTES, BUN CREA) [facility] EBV VCA IGG AB EBV VCA IGG AB R outine Alcoholic cirrhosis, unspecified whether ascites present ESRD (end stage renal disease) on dialysis Pre-transplant evaluation for liver transplant 10/12/2018 12:57 PM [facility] Work Phone: Fungus identified in Unspecified specimen by Culture [facility] HLA TYPING (SOLID ORGAN) HLA TYPING (SOLID ORGAN) Routine Alcoholic cirrhosis, unspecified whether ascites present ESRD (end stage renal disease) on dialysis Pre-transplant evaluation for liver transplant 10/12/2018 12:57 PM [facility] Work Phone: HSV 1 AND 2 IGG ANTIBODY HSV 1 AND 2 IGG ANTIBODY Routine Alcoholic cirrhosis, unspecified whether ascites present ESRD (end stage renal disease) on dialysis Pre-transplant evaluation for liver transplant 10/12/2018 12:57 PM [facility] Work Phone: 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 specific culture [facility] PLACEMENT NEPHROSTOM Y CATHETER PERCUTANEOUS W/ IMAGE GUIDANCE PLACEMENT NEPHROSTOMY CATHETER PERCUTANEOUS W/ IMAGE GUIDANCE Imaging Routine Hydronephrosis due to obstruction of ureteral orifice FAYE (acute kidney injury) 05/17/2022 11:08 AM EDT [facility] MT POST VOID RESIDUAL MT POST VO ID RESIDUAL MT - OFFICE PERFORMED Routine BPH with obstruction/lower urinary tract symptoms Ordered: 09/10/2022 [facility] Comment on above: Ordered: 09/10/2022 PTH INTACT PTH INTACT Routi ne Alcoholic cirrhosis, unspecified whether ascites present ESRD (end stage renal disease) on dialysis Pre-transplant evaluation for liver transplant 10/12/2018 12:57 PM [facility] Work Phone: RUBEOLA IGG AB (IMMU NE STATUS) RUBEOLA IGG AB (IMMUNE STATUS) Routine Alcoholic cirrhosis, unspecified whether ascites present ESRD (end stage renal disease) on dialysis Pre-transplant evaluation for liver transplant 10/12/2018 12:57 PM [facility] Work Phone: End: 01-16-2024 Standard ECG ECG ECG Routine One Time for 1 Occurrences starting 01/16/2024 until 01/16/2024 [facility] Comment on above: One Time for 1 Occurrences starting 12/31 until 01/16/2024 End: 09-10-2024 TACROLIMUS LEVEL, TROUGH (PRE DRUG LEVEL) [facility] VARICELLA IGG AB (IM M STATUS) VARICELLA IGG AB (IMM STATUS) Routine Alcoholic cirrhosis, unspecified whether ascites present ESRD (end stage renal disease) on dialysis Pre-transplant evaluation for liver transplant 10/12/2018 12:57 PM [facility] Work Phone: Immunizations Immunization Date Immunization Notes Care Provider Fa jimmyty 11-03-2023 influenza virus vacc ine, unspecified formulation Generic Provider [facility] 11-03-2023 Moderna SARS-CoV-2 50mcg/0.5mL Booster Generic Provider [facility] Payers Date Payer Category Payer Unknown [id number] 2019 Unknown [facility] [id number] 2019-Present [id number] 2018 Medicaid [place] [facility] DEPT OF JOB xxxxxxxxxxxx 2018-Present [phone] [address] [place] [address] xxxxxxxxxxxx [id number] 2018 Medicaid MEDICAID MEDICAI [id number] 2018-Present [address] [place] [address] [id number] .[id number] 2018 Medicaid [id number] .[id number] 2018 Medicare MEDICARE MEDICAR E PART A AND B xxxxxxxxxxx 2018-Present [phone] [address] [address] [place] [address] xxxxxxxxxxx [id number] .[id number] 2018 Medicare [id number] 2018 Medicare MEDICARE MEDICAR E A AND B [id number] 2018-Present [address] [place] [address] [id number] .[id number] 2018 Medicare [id number]. 1.13.172.2.7.3 .[id number] 1971 Unknown [id number] 2.16.840.1.714502.3.579.2.173 1971 Unknown [id number] 2.16.840.1.843537.3.579.2.173 1971 Unknown [id number] 2.16.840.1.368426.3.579.2.173 1971 Unknown [id number] 2.16.840.1.251747.3.579.2.173 1971 Unknown [id number] 2.16.840.1.537338.3.579.2.173 1971 Unknown [id number] 2.16.840.1.058663.3.579.2.173 1971 Unknown [id number] 2.16.840.1.732435.3.579.2.173 1971 Unknown [id number] 2.16.840.1.057297.3.579.2.173 1971 Unknown [id number] 2.16.840.1.951884.3.579.2.647 1971 Unknown [id number] 2.16.840.1.583626.3.579.2.593 1971 Unknown [id number] 2.16.840.1.686252.3.579.2.593 1971 Unknown [id number] 2.16.840.1.374494.3.579.2.593 1971 Unknown [id number] 2.16.840.1.931191.3.579.2.593 1971 Unknown [id number] 2.16.840.1.901544.3.579.2.593 1971 Unknown [id number] 2.16.840.1.555206.3.579.2.593 1971 Unknown [id number] 2.16.840.1.152380.3.579.2.593 1971 Unknown [id number] 2.16.840.1.122381.3.579.2.593 1971 Unknown [id number] 2.16.840.1.437874.3.579.2.593 1971 Unknown [id number] 2.16.840.1.257269.3.579.2.593 1971 Unknown [id number] 2.16.840.1.777298.3.579.2.593 1971 Unknown [id number] 2.16.840.1.013512.3.579.2.593 1971 Unknown [id number] 2.16.840.1.688267.3.579.2.593 1971 Unknown [id number] 2.16.840.1.775577.3.579.2.593 1971 Unknown [id number] 2.16.840.1.923744.3.579.2.593 1971 Unknown [id number] 2.16.840.1.029773.3.579.2.125 9 1971 Unknown [id number] 2.16.840.1.502302.3.579.2.125 9 1971 Unknown [id number] 2.16.840.1.253197.3.579.2.125 9 1971 Unknown [id number] 2.16.840.1.492254.3.579.2.125 9 1971 Unknown [id number] 2.16.840.1.319476.3.579.2.125 9 1971 Unknown [id number] 2.16.840.1.081505.3.579.2.125 9 1971 Unknown [id number] 2.16.840.1.537389.3.579.2.125 9 1971 Unknown [id number] 2.16.840.1.916917.3.579.2.125 9 1971 Unknown [id number] 2.16.840.1.636930.3.579.2.125 9 1971 Unknown [id number] 2.16.840.1.443838.3.579.2.125 9 1971 Unknown [id number] 2.16.840.1.079789.3.579.2.125 9 1971 Unknown [id number] 2.16.840.1.067909.3.579.2.125 9 1971 Unknown [id number] 2.16.840.1.188437.3.579.2.125 9 1971 Unknown [id number] 2.16.840.1.461692.3.579.2.594 1971 Unknown [id number] 2.16840.1.871809.3.579.2.594 1971 Unknown [id number] 2.16.840.1.552879.3.579.2.594 1971 Unknown [id number] 2.16840.1.483195.3.579.2.594 1971 Unknown [id number] 2.840.1.133066.3.579.2.594 1971 Unknown [id number] 2.840.1.616677.3.579.2.594 1971 Unknown [id number] 2.16840.1.328174.3.579.2.594 1971 Unknown [id number] 2.16840.1.268274.3.579.2.594 1971 Unknown [id number] 2.840.1.481767.3.579.2.594 1971 Unknown [id number] 2.840.1.998032.3.579.2.594 1971 Unknown [id number] 2.840.1.276047.3.579.2.594 1971 Unknown [id number] 2.840.1.801086.3.579.2.594 1959 Medicaid [id number] 1958 Medicare [id number] Social History Date Type Detail Facility Start: 07-19-2018 End: 10-19-2018 Tobacco smoking status [facility] Former smoker [facility] Start: 07-19-1988 End: 05-14-2018 History of tobacco use Current smoker [facility] Work Phone: Start: 07-19-1988 End: 05-14-2018 History of tobacco use Cigarette Smoker [facility] Work Phone: Start: 10-19-2018 End: 03-24-2024 Cigarettes smoked current (pack per day) - Reported [facility] End: 07-19-1994 History of tobacco use Chews Tobacco [facility] Work Phone: Start: 1970 Sex Assigned At Not on file [facility] Work Phone: Start: 11-03-2018 Alcohol intake Current non-drinker of alcohol (finding) [place] Start: 06-22-2018 Alcohol Comment Hx of alcoholism [place] Start: 11-03-2018 End: 03-24-2024 Alcohol intake No [facility] Start: 07-19-2018 Tobacco use and exposure Former user [facility] Start: 09-06-2020 End: 03-24-2024 Alcohol intake Ex-drinker (finding) [facility] Start: 07-19-2018 Alcohol Comment stopped 05/14/2018 [facility] Start: 05-05-2022 End: 01-16-2023 Exposure to SARS-CoV-2 (event) Not sure [facility] Start: 07-07-2018 Gender identity Identifies as male gender (finding) [facility] Start: 01-16-2022 Sexual orientation Heterosexual (finding) [facility] Start: 11-03-2023 Tobacco use and exposure [...] Dates [id number] Start: 05-23-2020 [id number] Start: 04-12-2020 [phone] [facility] Start: 05-17-2022 Comment on above: Description: Implant time-out completed by intra-procedural staff including this RN, technical communication teacher, and performing physician. The following was completed. RN reads out loud implant type/size/ expiration date, and verbalizes location. Holds package up to tech to visually verify implant details. Tech reads back package details MD verifies verbally correct implant Time-out was completed for each coil during embolization, if applicable. Goals Date Patient Goal Desired Activity /State Personal health goal Clinical Notes 06-14-2021 to 03-24-2024 [facility] 4:12 PM Angie Rajput - 03/24/2024 4:12 PM EDTRmonster [facility] 4:12 PM EDTAttachments Note Date & Type Note Facility 03-24-2024 History of Present illness Narrative [facility] RX OUTREACH ADVANCED: Call Information: Date and Time of Contact: 03/24/2024 4:14 PM Method of Contact: By Phone Contact Type: Prescriptions Contactor: [facility] Contactee: Patient Contact Outcome: Left message Shipping/Pickup: Medication Name: Prograf 0.2mg pack Contact Info: Specialty ([place]) [phone] Jakob [phone] [facility] [phone] Raheem [phone] Bedside Delivery ([facility]) [phone] [facility] RX OUTREACH ADVANCED: Call Information: Date and Time of Contact: 03/28/2024 3:58 PM Method of Contact: By Phone Contact Type: Prescriptions Contactor: [facility] Contactee: Patient Contact Outcome: Left message and Call back later Shipping/Pickup: Medication Name: Mycophenolate, prograf Contact Info: Specialty ([place]) [phone] Jakob [phone] [facility] [phone] Raheem [phone] Bedside Delivery ([facility]) [phone] [facility] RX OUTREACH ADVANCED: Call Information: Method of Contact: By Phone Contact Type: Prescriptions Contactor: Patient Contactee: [facility] OP Shipping/Pickup: Medicare B Refill?: No Medication Name: Mycopheolate 360mg and Prograf Delivery Method: Ship Delivery Location: Home Signature Required: No Receive/Pickup Date: 04/04/2024 Shipping Address: [address] [place] [address] [address] Contact Info: Specialty ([place]) [phone] Jakob [phone] [facility] [phone] Raheem [phone] Bedside Delivery ([facility]) [phone] documented in this encounter [facility] 03-24-2024 History of Present illness Narrative [facility] OUTREACH ADVANCED: Call Information: Date and Time of Contact: 03/24/2024 4:14 PM Method of Contact: By Phone Contact Type: Prescriptions Contactor: [facility] Contactee: Patient Contact Outcome: Left message Shipping/Pickup: Medication Name: Prograf 0.2mg pack Contact Info: Specialty ([place]) [phone] [facility] [phone] [facility] [phone] Raheem [phone] Bedside Delivery ([facility]) [phone] [facility] RX OUTREACH ADVANCED: Call Information: Date and Time of Contact: 03/28/2024 3:58 PM Method of Contact: By Phone Contact Type: Prescriptions Contactor: [facility] Contactee: Patient Contact Outcome: Left message and Call back later Shipping/Pickup: Medication Name: Mycophenolate, prograf Contact Info: Specialty ([place]) [phone] [facility] [phone] [facility] [phone] Raheem [phone] Bedside Delivery ([facility]) [phone] [facility] RX OUTREACH ADVANCED: Call Information: Method of Contact: By Phone Contact Type: Prescriptions Contactor: Patient Contactee: [facility] OP Shipping/Pickup: Medicare B Refill?: No Medication Name: Mycopheolate 360mg and Prograf Delivery Method: Ship Delivery Location: Home Signature Required: No Receive/Pickup Date: 04/04/2024 Shipping Address: [address] [place] [address] [address] Contact Info: Specialty ([place]) [phone] [facility] [phone] [facility] [phone] Raheem [phone] Bedside Delivery ([facility]) [phone] [facility] RX OUTREACH ADVANCED: Pre-Verification/Specialty Assessment/Disease [...] Within normal limits Contact Info: Specialty ([place]) [phone] Jakob [phone] [facility] [phone] Raheem [phone] Bedside Delivery ([facility]) [phone] documented in this encounter [facility] 03-02-2024 History of Present illness Narrative [facility] [...] del of broth Contact Info: Specialty ([place]) [phone] Jakob [phone] [facility] [phone] Raheem [phone] Bedside Delivery ([facility]) [phone] [facility] RX OUTREACH ADVANCED: Call Information: Date and Time of Contact: 03/02/2024 3:49 PM Method of Contact: By Phone Contact Type: Prescriptions Contactor: [facility] Contactee: Patient Contact Outcome: Left message and Follow-up Shipping/Pickup: Medication Name: Myco 360mg and Prograf 0.2mg Contact Info: Specialty ([place]) [phone] [facility] [phone] [facility] [phone] Raheem [phone] Bedside Delivery ([facility]) [phone] [facility] RX OUTREACH ADVANCED: Call Information: Date and Time of Contact: 03/02/2024 4:08 PM Method of Contact: By Phone Contact Type: Prescriptions Contactor: [facility] OP Contactee: Patient Shipping/Pickup: Medicare B Refill?: No Medication Name: Myco 360 / prograf 0.2 Delivery Method: Ship Delivery Location: Home Signature Required: No Receive/Pickup Date: 03/03/2024 Shipping Address: [address] [place] [address] Contact Info: Specialty ([place]) [phone] [facility] [phone] [facility] [phone] Raheem [phone] Bedside Delivery ([facility]) [phone] documented in this encounter [facility] 02-26-2024 History of Present illness Narrative [...] presents to the HF Clinic at the [facility] on 02/26/2024 for initial evaluation of [...] Left; Surgeon: Jyoti Bryant MD, PhD; Location: [facility] MAIN OR PLACEMENT NEPHROSTOMY CATHETER PERCUTANEOUS W/ IMAGE GUIDANCE 05/17/2022 Surgeon: Enzo Heart DO; Location: [facility] INTERVENTIONAL RADIOLOGY (VIR) LIVER TRANSPLANT, ORTHOTOPIC N/A 04/12/2020 Laterality: N/A; Surgeon: LU Palma; Location: [facility] SAME DAY SURGERY MAIN OR KIDNEY TRANSPLANT W/O CACHIL DEHE NEPHRECTOMY N/A 04/12/2020 Laterality: N/A; Surgeon: LU Palma; Location: [facility] SAME DAY SURGERY MAIN OR [...] qd Antithrombotic: no Statin: no ICD: NA CARBON PAPER MACHINE OPERATOR: NA CV Test results: ECHOCARDIOGRAM 01/18/2024 (Final) [...] will be BP control. Candie Almaguer M.D. trend investigator Advanced Heart Failure Program Division of Cardiovascular Medicine [facility] [email or web address] [phone] fax [phone] documented in this encounter [facility] 02-26-2024 Instructions Marsha Mckeon RN - 02/26/2024 9:30 AM EDT The following instructions were given today: Labs today Follow up with Dr. Almaguer as needed. Your after visit summary (AVS) is viewable in [facility] My Chart. Call RN if you have cardiac questions/concerns M-F 8 to 4:30 ; office # [phone], option 6, then option 2. Guidelines for home management: 1. Continue to monitor weight first thing each morning. 2. Report to the CHF CLINIC ([phone]) any significant weight change. Remember that weight [...] to have labs/tests run outside of the [facility] and you do not hear from us 1-2 days after they are performed, you must call us to ensure we received the results. Office fax # [phone]. No news does not necessarily mean that your tests are normal, it could mean we did not get the results. For questions/updates: please provide your name with spelling, date of and question or update All calls are prioritized and responses researched, if possible, prior to calls being returned. Call Scheduling for any appointment/procedure verification or changes [phone], option 7 or [facility] Heart Schedulers at [phone], option 1. documented in this encounter [facility] 01-23-2024 Nurse Note Jakob wrap & [...] understanding on picking up needed prescriptions at [facility] as listed on discharge summary. Patient denies any unanswered questions at this time. Patient has been discharged with all of their belongings, transported via wheelchair on oxygen to front entrance for brother to transport home on home oxygen supply. [facility] 01-23-2024 Miscellaneous Notes Jakob wrap & [...] understanding on picking up needed prescriptions at [facility] pharmacy as listed on discharge summary. Patient [...] Pain): verbalization of pain descriptors George Styles ([id number]) PRE OPERATIVE DIAGNOSIS High output congestive heart failure [I50.83] POST OPERATIVE DIAGNOSIS Post-Op Diagnosis Codes: * High output congestive heart failure [I50.83] PROCEDURE PERFORMED Procedure(s) (LRB): LIGATION ANGIOACCESS AVF (Left) Resection of large aneurysmic vein PRIMARY CLOSURE Yes INTRAOPERATIVE FINDINGS No significant abnormalities SURGEON Surgeons and Role: * Jyoti Bryant MD, PhD - Primary ANESTHESIOLOGIST Anesthesiologist: Celena Tiwari MD; Kehinde Gutierrez MD LIFT TRUCK OPERATOR: Raheem Jasso APRN-LIFT TRUCK OPERATOR Stranding Supervisor Assisting: Mini Khan MD SURGICAL STAFF Electronics Production Supervisor: Zoila Lawrence RN Relief Electronics Production Supervisor: Marimar Saravia RN Relief Scrub: Briseyda Self [...] patent, patient breathing easily. Report received from instructor adjunct surgical technician and report received from anesthesiology. Pt arrived [...] Axillary block. SURGEON(S): Jyoti Bryant MD, PHD PHLEBOTOMIST LAB ASSISTANT: Mynor Fall MD ESTIMATED BLOOD LOSS: Minimal. [...] Jyoti Bryant MD, PHD ATTENDING SHANNON/Constanza JOB: [id number] DOC: [id number] Patient has been asleep this shift. He [...] overnight coverage, Jasper Gastelum MD, via pager #[phone] Pt- George Styles. Smith 1082. TM1. Was wondering if he can have his Melatonin order increased to 6mg. Per pt, he usually takes 8mg at home. -SAMI Duffy #[phone] Tati Charles RN Internal Medicine Daily Progress Note Patient: George Styles, 1970, [id number] Physician: Arelis Mera MD, PGY3, Pager #[phone], TM1 service Assessment/Plan: George Styles is a [...] Mera MD Mr. Styles was admitted to [address] [place] [address]. On admission to [facility], from outside facility a dual RN initial assessment of skin condition was performed by Izzy Gutierrez RN and Leroy Singleton RN. Skin Assessment: Skin within defined limits:Yes Jose Score: 20 Wound Vision Urology Teacher images obtained: No LDA Added: No Based [...] when available. documented in this encounter [facility] 01-23-2024 Nurse Note Home Oxygen Qualification Patient: Geroge Styles The patient is agreeable to the [...] at 4L of oxygen is also required.) [facility] 01-23-2024 History of Present illness Narrative [...] mg Oral Daily Kelvin Pacheco MD, LU assistant professor of sociology Transplant nephrology Surgery Post-Op Check Note George [...] monitor Leonel Harris DO General Surgery Pager [phone] CM went to bedside to talk with patient. Patient states he has home oxygen through [employer]. He uses 2.5 LNC around the clock. Patient states his brother will bring a tank for discharge. Anticipate patient will discharge tomorrow AM. Brother updated. Girish Oro RN, BSN Clinical Adapted Physical Education Aide Please note that I am a float catalytic case operator and may not cover the same service every day. Please call the main Case Management office at [phone] for up-to-date coverage. Verified patients identity using [...] Daily Progress Note Patient: George Styles, 1970, [id number] Physician: Yury Ozuna MD, PGY1, Pager #[phone], FB6 service Assessment/Plan: George Styles is a 53 [...] by transplant surgery on 01/22 (NPO at [place], updated type & screen) S/p Liver-Kidney Transplant [...] home amlodipine 5mg CAD: non-obstructive CAD on [facility] 2018. - continue home aspirin [...] with the Nutrition plan outlined in the Senior Administrative Assistant s note. DVT prophylaxis with lovenox Diet [...] Kelvin Pacheco MD, LU assistant professor of sociology Transplant nephrology Patient seen and examined at [...] Oral BID AC Kelvin Pacheco MD, LU assistant professor of sociology Transplant nephrology Images from the original note were not included. Internal Medicine Daily Progress Note Patient: George Styles, 1970, [id number] Physician: Yury Ozuna MD, PGY1, Pager #[phone], ZF3 service Assessment/Plan: George Styles is a 53 [...] home amlodipine 5mg CAD: non-obstructive CAD on [facility] 2018. - continue home aspirin [...] with the Nutrition plan outlined in the Senior Administrative Assistant s note. DVT prophylaxis with lovenox Diet [...] Provider: Zuly Bruno NP [facility] Other Comments: Patient reported his Last Home Dose of mycophenolate and tacrolimus was on 01/15/24 at 0700. Medications that need removed from Outside Medication Reconciliation list: Please remove all medications. Please feel free to contact me with any further questions. Name: Heidy Chatman Phone #: [phone] Date/Time: 01/19/2024 12:08 PM Time Spent: 15 minutes Associated attestation - Fidelina Alarcon [facility] - 01/19/2024 12:41 PM EST Department of Pharmacy Admission Medication Reconciliation Note Patient: George Styles Room/Bed: 1082/A I have reviewed the home medication list with the Seo Associate. The home medication list status is: complete. All changes to the home medication list have been updated in [facility]. Updated HAND FABRIC CUTTER Med List: Prior to Admission Medications Prescriptions [...] with any further questions. Name: Fidelina Alarcon [facility] Phone #: [phone] Date/Time: 01/19/2024 12:41 PM Internal Medicine Daily Progress Note Patient: George Styles, 1970, [id number] Physician: Yury Ozuna MD, PGY1, Pager #[phone], ZM3 service Assessment/Plan: Acute Hypoxic Respiratory Insufficiency GARCIA, [...] home amlodipine 5mg CAD: non-obstructive CAD on [facility] 2018. - continue home aspirin [...] with the Nutrition plan outlined in the Senior Administrative Assistant s note. DVT prophylaxis with lovenox Diet DIET HEART HEALTHY - 4 GM SODIUM Disposition: home pending clinical improvement and evaluation Code status is Full Code Discussed with team and attending, Kelvin Pacheco MD, MBBS , on rounds. Signed, Yury Ozuan MD PGY-1 Subjective/Interval History: No acute events [...] Kelvin Pacheco MD, MBBS assistant professor of sociology Transplant nephrology Internal Medicine Daily Progress Note Patient: George Styles, 1970, [id number] Physician: Yury Ozuna MD, PGY1, Pager #[phone], TM1 service Assessment/Plan: Updates: - continued diuresis [...] home amlodipine 5mg CAD: non-obstructive CAD on [facility] 2018. - continue home aspirin [...] with the Nutrition plan outlined in the Senior Administrative Assistant s note. DVT prophylaxis with lovenox Diet [...] Kelvin Pacheco MD, LU assistant professor of sociology Transplant nephrology Pt known to twisting press operator from previous admissions. Provided emotional and spiritual support. Patient shared about: family support, medical course Inventory Worker provided: - Supportive presence - Active listening - Validation of feelings/emotions Patient encouraged to request a twisting press operator as needed. Chaplains are available in-house 24 hours a day and 7 days a week. For urgent matters in [facility], please page [phone]. If the request is not urgent, please enter a consult. Consults are responded to within 24 hours. Senior Staff Inventory Worker Angie Singh Mdiv, [facility] [phone] [email or web address] On-call : teacher physically impaired Raheem: 22/06 Pager ,[facility], and Brock Hernandez Pager [phone] 01/18/24 1342 Clinical Encounter Type Visited With Patient Visit Type Introduction Pastoral Time Spent 15 min Referral Other (See Comment) (rounding) Spiritual Assessment Emotional Observation Coping well;Anxiety Hope Observation Specific hope focus Support Observation By Family Interventions Provided Active listening;Supportive presence Facilitated Verbalization of feelings;Identifying support system;Identifying Sources of spiritual well-being Explored Expectations;Treatment decisions Heel Padder Education Heel Padder Service Available Yes Educated Patient Outcomes Patient [...] interaction. Name: Fidelina Alarcon RPH Phone #: [phone] Date/Time: 01/18/2024 9:56 AM Discharge Planning Patient [...] Yes Name and Contact information: Gian Styles ([phone]) Would you like to add additional adult [...] oxygen?: Yes Oxygen Provider and Contact : Finomial Liter-Flow?: Order for oxygen use?: unknown at [...] patient on Anticoagulation? : No [id number] [place] [address] - [address] [place] [address] [address] [facility] [id number] Fret Saw Operator Does the patient or senior human resources representative express financial concerns? : No Employed?: Disabled Coping/Stress Concerns about patient s coping and stress?: No Concerns about patient s caregiver s coping and stress?: No Values and Beliefs Cultural or hindu practices that may impact discharge planning and/or [...] Plan 1. Identified self and role as Adapted Physical Education Aide. 2. Confirmed and updated demographics and treatment team. 3. Adapted Physical Education Aide will continue to follow with medical team for any other additional discharge needs. Kasandra DON RN [facility] [phone] *Please note I am float CM and work Thursday and Thursday every other week. Please call [phone] for assist in my absence. Internal Medicine Daily Progress Note Patient: George Styles, 1970, [id number] Physician: Yury Ozuna MD, PGY1, Pager #[phone], TM7 service Assessment/Plan: Updates: - continue diuresis with [...] home amlodipine 5mg CAD: non-obstructive CAD on [facility] 2018. - continue home aspirin [...] ordered 2D echo. Kevin Prince MD, FASN Shirt Operator of Clinical Medicine [facility] documented in this encounter [facility] 01-23-2024 Plan of care note Patient [...] Symptoms (Acute Pain): verbalization of pain descriptors [facility] 01-22-2024 Hospital Discharge instructions Arelis Mera [...] your doctor for further instructions. Please call [phone], Option 1 or [phone] to schedule your appointment with the Heart Failure Clinic. Arelis Mera MD - 01/22/2024 3:08 PM EST You can change your dressing 48 hours from the procedure The following attachments cannot be sent through Care Everywhere.Heart Failure: Avoiding Triggers (Dominican)Heart Failure: Limiting Sodium (Dominican)Pain and Pain Control ([facility]) (Dominican)documented in this encounter [facility] 01-22-2024 Surgery Postoperative evaluation and management note George Styles ([id number]) PRE OPERATIVE DIAGNOSIS High output congestive heart failure [I50.83] POST OPERATIVE DIAGNOSIS Post-Op Diagnosis Codes: * High output congestive heart failure [I50.83] PROCEDURE PERFORMED Procedure(s) (LRB): LIGATION ANGIOACCESS AVF (Left) Resection of large aneurysmic vein PRIMARY CLOSURE Yes INTRAOPERATIVE FINDINGS No significant abnormalities SURGEON Surgeons and Role: * Jyoti Bryant MD, PhD - Primary ANESTHESIOLOGIST Anesthesiologist: Celena Tiwari MD; Kehinde Gutierrez MD LIFT TRUCK OPERATOR: Raheem Jasso APRN-HUGO Stranding Supervisor Assisting: Mini Khan MD SURGICAL STAFF Electronics Production Supervisor: Zoila Lawrence RN Relief Electronics Production Supervisor: Marimar Saravia RN Relief Scrub: Briseyda Self Scrub Person: Cinda Mai RN Resident Assisting: Leonel Harris DO Fellow: Miki Mcgowan MD, MBBS COMPLICATIONS None ESTIMATED BLOOD LOSS Minimal SPECIMENS No specimen sent * No specimens in log * Jyoti Bryant MD, PhD January 22, 2024 1:34 PM [facility] Work Phone: 01-22-2024 Nurse Note Arrived to PACU assisted by anesthesiology. Connected to monitors. Turned side to side, OR linens removed, repositioned. Airway patent, patient breathing easily. Report received from instructor adjunct surgical technician and report received from anesthesiology. Pt arrived awake. VSS. Sats slightly low. Pulm rehab used. Sats currently 3lpm @ 93%. Pt states he uses CPAP nocturnally. A&Ox4. Nerve block left arm, elevated. [facility] 01-22-2024 Surgery Postoperative evaluation and management [...] Axillary block. SURGEON(S): Jyoti Bryant MD, PHD PHLEBOTOMIST LAB ASSISTANT: Mynor Fall MD ESTIMATED BLOOD LOSS: Minimal. [...] Jyoti Bryant MD, PHD ATTENDING SHANNON/Constanza JOB: [id number] DOC: [id number] [facility] 01-22-2024 Plan of care note Patient [...] 1939 Plan Of Care Reviewed With: patient [facility] 01-20-2024 Consult note Associated Order (s): IP CONSULT TO SURGERY - TRANSPLANT (RENAL) Images from the original note were not included. TRANSPLANT SURGERY CONSULT NOTE: Consult: 01/20/2024, 4:03 PM Fast Food Attendant: Starla Morris MD Reason for Consult: Requesting Dr Carson Bryant for AVF revision/closure given new onset high output heart failure George Styles is a 53 y.o. male CURRENT HOSPITALIZATION LOS: Admit Date: 01/16/2024 [facility] Hospital LOS: 4 days George Styles [...] DAY SURGERY MAIN OR KIDNEY TRANSPLANT W/O CACHIL DEHE NEPHRECTOMY N/A 04/12/2020 Laterality: N/A; Surgeon: LU [...] DR 360 mg 360 mg Oral bid Timohty Joseph MD 360 mg at 01/20/24917 Ondansetron [...] WBC/Hgb/Hct/Plts: 3.79/12.5/38.9/166 (01/20 611) Labs-Chem 7([facility]): Bun/Creat/Cl/CO2/Glucose: 15/1.12/105/28/88 (01/20 611) Na/K+/Phos/Mg/Ca: [...] seen and staffed with Dr. Mcgowan fellow transaction processor Thank you, Starla Morris MD Associated attestation - Jyoti Bryant MD, PhD - 01/22/2024 10:54 AM EST I. Jyoti Bryant MD, PhD, have independently seen and examined the patient, reviewed the labs, discussed the patient with the fellow/resident and agree with the note. [facility] Work Phone: 01-20-2024 Consult note Associated Order (s): IP CONSULT TO SURGERY - TRANSPLANT (RENAL) Images from the original note were not included. TRANSPLANT SURGERY CONSULT NOTE: Consult: 01/20/2024, 4:03 PM Fast Food Attendant: Starla Morris MD Reason for Consult: Requesting Dr Carson Bryant for AVF revision/closure given new onset high output heart failure George Styles is a 53 y.o. male CURRENT HOSPITALIZATION LOS: Admit Date: 01/16/2024 [facility] Hospital LOS: 4 days George Styles [...] GUIDANCE 05/17/2022 Surgeon: Enzo Heart DO; Location: [facility] INTERVENTIONAL RADIOLOGY (VIR) LIVER TRANSPLANT, ORTHOTOPIC N/A 04/12/2020 Laterality: N/A; Surgeon: LU Palma; Location: [facility] SAME DAY SURGERY MAIN OR KIDNEY TRANSPLANT W/O CACHIL DEHE NEPHRECTOMY N/A 04/12/2020 Laterality: N/A; Surgeon: LU Palma; Location: [facility] SAME DAY SURGERY MAIN OR [...] WBC/Hgb/Hct/Plts: 3.79/12.5/38.9/166 (01/20 611) Labs-Chem 7([facility]): Bun/Creat/Cl/CO2/Glucose: 15/1.12/105/28/88 (01/20 611) Na/K+/Phos/Mg/Ca: [...] seen and staffed with Dr. Mcgowan fellow transaction processor Thank you, Starla Morris MD Associated attestation [...] GUIDANCE 05/17/2022 Surgeon: Enzo Heart DO; Location: [facility] INTERVENTIONAL RADIOLOGY (VIR) LIVER TRANSPLANT, ORTHOTOPIC N/A 04/12/2020 Laterality: N/A; Surgeon: LU Palma; Location: [facility] SAME DAY SURGERY MAIN OR KIDNEY TRANSPLANT W/O CACHIL DEHE NEPHRECTOMY N/A 04/12/2020 Laterality: N/A; Surgeon: LU Palma; Location: [facility] SAME DAY SURGERY MAIN OR [...] (order for outpatient) Please SecureChat or Call ([phone]) for any questions. Await attending attestation for final recommendations. Hank Noel MD Division of Gastroenterology, Hepatology, and Nutrition Clinical Fellow, PGY-5 Pager: [phone] For urgent/stat calls or consults 5pm to 7am, please page the on-call GI fellow on QGenda. [facility]--> Internal Medicine--> Gastroenterology, Hepatology, & Nutrition--> 1st Call Fel Alysia For urgent/stat calls or consults 7am to 5pm during the weekend, please page the on-call GI fellow on QGenda. [facility]--> Internal Medicine--> Gastroenterology, Hepatology, & Nutrition--> All Hep & East Wknd Cons Fel Day For follow up questions regarding this patient 7am to 5pm during the weekday, contact the Hepatology consults fellow or CARLOS A on QGenda. [facility]--> Internal Medicine--> Gastroenterology, Hepatology, & [...] Estrada MD, MSc documented in this encounter [facility] 01-19-2024 Nurse Note 01/19/24 0900 Vitals [...] rest, 95-96% when talking/moving. Paulette Cordon RN [facility] 01-19-2024 Nurse Note Paged overnight coverage, Jasper Gastelum MD, via pager #[phone] Pt- George Styles. Sarah [phone]. TM1. Was wondering if he can have his Melatonin order increased to 6mg. Per pt, he usually takes 8mg at home. -SAMI Duffy #[phone] Tati Charles RN [facility] 01-18-2024 Consult note Associated Order (s): [...] DAY SURGERY MAIN OR KIDNEY TRANSPLANT W/O CACHIL DEHE NEPHRECTOMY N/A 04/12/2020 Laterality: N/A; Surgeon: LU [...] and procedures were reviewed. ASSESSMENT AND PLAN: eGorge Styles is a 53 y.o. male, PMH [...] (order for outpatient) Please SecureChat or Call ([phone]) for any questions. Await attending attestation for final recommendations. Hank Noel MD Division of Gastroenterology, Hepatology, and Nutrition Clinical Fellow, PGY-5 Pager: [phone] For urgent/stat calls or consults 5pm to 7am, please page the on-call GI fellow on QGenda. [facility]--> Internal Medicine--> Gastroenterology, Hepatology, & Nutrition--> 1st Call Janae Hatfield For urgent/stat calls or consults 7am to 5pm during the weekend, please page the on-call GI fellow on QGenda. [facility]--> Internal Medicine--> Gastroenterology, Hepatology, & Nutrition--> All Hep & East Wknd Cons Fel Day For follow up questions regarding this patient 7am to 5pm during the weekday, contact the Hepatology consults fellow or CARLOS A on FlowJoba. [facility]--> Internal Medicine--> Gastroenterology, Hepatology, & [...] (order for outpatient) Michael Estrada MD, MSc [facility] Work Phone: 01-16-2024 Plan of care note Internal Medicine Daily Progress Note Patient: George Styles, 1970, [id number] Physician: Arelis Mera MD, PGY3, Pager #[phone], TM1 service Assessment/Plan: George Styles is a [...] home amlodipine 5mg CAD: non-obstructive CAD on [facility] 2018. - continue home aspirin [...] MD, on rounds. Signed, Arelis Mera MD [facility] 01-16-2024 Nurse Note Mr. Styles was admitted to [address] [place] [address]. On admission to [facility], from outside facility a dual RN initial assessment of skin condition was performed by Izzy Gutierrez RN and Leroy Singleton RN. Skin Assessment: Skin within defined limits:Yes Jose Score: 20 Wound Vision Urology Teacher images obtained: No LDA Added: No Based [...] room closest to nurses station when available. [facility] 01-16-2024 History and physical note Images from the original note were not included. Internal Medicine Admission History & Physical Patient: George Styles, 1970, [id number] Physician: Timothy Joseph MD, PGY1, Pager #[phone], TM 1 service Date of face to [...] GUIDANCE 05/17/2022 Surgeon: Enzo Heart DO; Location: [facility] INTERVENTIONAL RADIOLOGY (VIR) LIVER TRANSPLANT, ORTHOTOPIC N/A 04/12/2020 Laterality: N/A; Surgeon: LU Palma; Location: [facility] SAME DAY SURGERY MAIN OR KIDNEY TRANSPLANT W/O CACHIL DEHE NEPHRECTOMY N/A 04/12/2020 Laterality: N/A; Surgeon: LU Palma; Location: [facility] SAME DAY SURGERY MAIN OR [...] itraconazole Fax results to: Dr. White - [phone] Transplant Neph - [phone] Gabapentin 400 MG capsule Sig: Take 1 [...] erythema: Skin: No jaundice or rash Neuro: dredge pump operator 3-7, 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 Strength [...] home amlodipine 5mg CAD: non-obstructive CAD on [facility] 2018. - continue home aspirin [...] Pierson, Luisa Steven, Renee Rivera, Daisha Max Cotton Bag Clipper: José Miguel Garnica All Txt: 04/13/2020 (Kidney), [...] results found for: CYCLOSPORIN , CYCLOSPORIN2 , [id number] , CYCLORAND No results found for: SIROLIMUS [...] request in chart. Kevin Prince MD Pager [phone] [facility] 01-16-2024 History and physical note Images from the original note were not included. Internal Medicine Admission History & Physical Patient: George Styles, 1970, [id number] Physician: Timothy Joseph MD, PGY1, Pager #[phone], TM 1 service Date of face to face patient encounter: 01/16/24 . Chief Complaint: Lower extremity edema and shortness of breath History Of Present Illness: George Stlyes is a 53 y.o. male with a [...] GUIDANCE 05/17/2022 Surgeon: Enzo Heart DO; Location: [facility] INTERVENTIONAL RADIOLOGY (VIR) LIVER TRANSPLANT, ORTHOTOPIC N/A 04/12/2020 Laterality: N/A; Surgeon: LU Palma; Location: [facility] SAME DAY SURGERY MAIN OR KIDNEY TRANSPLANT W/O CACHIL DEHE NEPHRECTOMY N/A 04/12/2020 Laterality: N/A; Surgeon: LU Palma; Location: [facility] SAME DAY SURGERY MAIN OR [...] itraconazole Fax results to: Dr. White - [phone] Transplant Neph - [phone] Gabapentin 400 MG capsule Sig: Take 1 [...] erythema: Skin: No jaundice or rash Neuro: dredge pump operator 3-7, 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 Strength [...] and JENSEN. Acute Hypoxic Respiratory Insufficiency Bilateral JESNEN R Pleural Effusion Patient requiring 3-4L NC [...] home amlodipine 5mg CAD: non-obstructive CAD on [facility] 2018. - continue home aspirin [...] Pierson, Luisa Steven, Renee Rivera, Daisha Max Cotton Bag Clipper: José Miguel Garnica All Txt: 04/13/2020 (Kidney), [...] results found for: CYCLOSPORIN , CYCLOSPORIN2 , [id number] , CYCLORAND No results found for: SIROLIMUS [...] request in chart. Kevin Prince MD Pager [phone] documented in this encounter [facility] 01-12-2024 History of Present illness Narrative [...] Prograf 0.2 MG Contact Info: Specialty ([place]) [phone] [facility] [phone] [facility] [phone] [facility] [phone] Bedside Delivery ([facility]) [phone] [facility] RX OUTREACH ADVANCED: Call Information: Date and Time of Contact: 01/25/2024 10:23 AM Method of Contact: By Phone Contact Type: Prescriptions Contactor: [facility] Contactee: Patient Contact Outcome: Left message (prograf myco) Contact Info: Specialty ([place]) [phone] [facility] [phone] [facility] [phone] [facility] [phone] Bedside Delivery ([facility]) [phone] documented in this encounter [facility] 01-12-2024 History of Present illness Narrative [...] Prograf 0.2 MG Contact Info: Specialty ([place]) [phone] [facility] [phone] [place] [phone] [place] [phone] Bedside Delivery ([facility]) [phone] [facility] RX OUTREACH ADVANCED: Call Information: Date and Time of Contact: 01/25/2024 10:23 AM Method of Contact: By Phone Contact Type: Prescriptions Contactor: [facility] Contactee: Patient Contact Outcome: Left message (prograf myco) Contact Info: Specialty ([place]) [phone] [facility] [phone] [facility] [phone] [facility] [phone] Bedside Delivery ([facility]) [phone] [facility] RX OUTREACH ADVANCED: Call Information: Date and Time of Contact: 01/27/2024 10:19 AM Method of Contact: By Phone Contact Type: Prescriptions Contactor: [facility] Contactee: Patient Contact Outcome: Left message (myco prograf) Contact Info: Specialty ([place]) [phone] [facility] [phone] [facility] [phone] [facility] [phone] Bedside Delivery ([facility]) [phone] documented in this encounter [facility] 01-12-2024 History of Present illness Narrative [...] Prograf 0.2 MG Contact Info: Specialty ([place]) [phone] [facility] [phone] [facility] [phone] [place] [phone] Bedside Delivery ([facility]) [phone] [facility] RX OUTREACH ADVANCED: Call Information: Date and Time of Contact: 01/25/2024 10:23 AM Method of Contact: By Phone Contact Type: Prescriptions Contactor: [facility] Contactee: Patient Contact Outcome: Left message (prograf myco) Contact Info: Specialty ([place]) [phone] [facility] [phone] [facility] [phone] [place] [phone] Bedside Delivery ([facility]) [phone] [facility] RX OUTREACH ADVANCED: Call Information: Date and Time of Contact: 01/27/2024 10:19 AM Method of Contact: By Phone Contact Type: Prescriptions Contactor: [facility] Contactee: Patient Contact Outcome: Left message (myco prograf) Contact Info: Specialty ([place]) [phone] [facility] [phone] [facility] [phone] [place] [phone] Bedside Delivery ([facility]) [phone] [facility] RX OUTREACH ADVANCED: Call Information: Date and Time of Contact: 02/01/2024 3:22 PM Contact Type: Prescriptions Contactor: [facility] Contactee: Patient Contact Outcome: Left message Shipping/Pickup: Medication Name: Mycophenolate 360mg and Prograf 0.2mg Pack Contact Info: Specialty ([place]) [phone] [facility] [phone] [facility] [phone] [place] [phone] Bedside Delivery ([facility]) [phone] documented in this encounter [facility] 01-06-2024 History of Present illness Narrative [...] The neurologist wanted to send him to [facility] neurology but it is out of [...] pt to see neurologist in [facility] Immunocompromised ([facility]/HCC) Hypertension ([facility]) No change in meds Check echo Relevant Orders Echocardiogram 2D complete Bilateral lower extremity edema Relevant Orders Echocardiogram 2D complete Shortness of breath Check ECHO Relevant Orders Echocardiogram 2D complete Other Visit Diagnoses 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) [phone] [facility] RX OUTREACH ADVANCED: Call Information: Date and Time of Contact: 10/23/2023 2:00 PM Method of Contact: By Phone Contact Type: Prescriptions Contactor: [facility] Contactee: Patient Contact Outcome: Left message and Call back later Shipping/Pickup: Medication Name: Mycophenolate 360mg and Prograf 0.2mg Contact Info: Specialty ([place]) [phone] [facility] [phone] [facility] [phone] [facility] [phone] Bedside Delivery ([facility]) [phone] documented in this encounter [facility] 09-11-2023 Miscellaneous Notes Pt discharged home [...] the oxygen during the night. pt will machine pecan picker his oxygen from [employer] supply, 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 This RN [...] Patient seen ambulating in the velazquez with COOK BOX FILLER. Patient was mildly short of breath on [...] & HR 114. Messaged Mainor Loomis, via [employer] secure chat, Temp 100.8. His tylenol order [...] short period of time. 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 Episode of [...] Critical Care Medicine Message Mainor Loomis, via [employer] secure chat, Good evening, just an FYI, [...] short period of time. 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 This morning, [...] [address] Loera here also (contracting executive) Dr. Diaz aware of pt's increased oxygen [...] Medicine-Pediatrics, PGY-2 Mr. Styles was admitted to [address] [place] [address]. On admission to [facility], from home a [...] when available. documented in this encounter [facility] 09-11-2023 History of Present illness Narrative Provided follow-up emotional and spiritual support. Patient shared about rosemary of discharge and looking forward to seeing family Inventory Worker provided: - Supportive presence - Active listening - Validation of feelings/emotions Patient encouraged to request a twisting press operator as needed. Chaplains are available in-house 24 hours a day and 7 days a week. For urgent matters in [facility], please page [phone]. If the request is not urgent, please enter a consult. Consults are responded to within 24 hours. Senior Staff Inventory Worker Angie Singh Mdiv, [facility] Kirk [phone] [email or web address] 22/06 On-call [place]: [phone] 22/06 Pager ,[facility], and Brock Hernandez Pager [phone] 09/11/23 1430 Clinical Encounter Type Visited With Patient Visit Type Follow-up Pastoral Time Spent 15 min Referral Other (See Comment) (rounding) Spiritual Assessment Spiritual Observation Spirituality helpful Emotional Observation Coping well Hope Observation Specific hope focus Support Observation By Family Interventions Provided Active listening;Supportive presence Facilitated Verbalization of feelings Explored Expectations Heel Padder Education Heel Padder Service Available Yes Educated Patient Plan of Care Continue Visiting PRN Images from the original note were not included. [facility] ([facility] Note: Non-Verbal Med Rec [facility] received the following discharge prescription(s): Total cost is $0. I have reviewed the Discharge Rx Reconciliation Report. The discharge prescription(s) will be delivered to the patient on 09/11/2023. Dimitrios Gurrola RPh,PharmD Specialty ([place]) [phone] [facility] [phone] [facility] Bedside Delivery [phone] [facility] [phone] [facility] Bedside Delivery [phone] [place] [phone] [facility] Bedside Delivery [phone] [place] [phone] [place] [phone] Internal Medicine Daily Progress Note Patient: George Styles, 1970, [id number] Physician: Evan Kelly MD, PGY-1, TM1 service Subjective/Interval History: Patient continues to require oxygen overnight for desaturations. With insurance limitations, only accepting agency to provide home oxygen backed out. After calling them to discuss, Lynn stated she would be willing to have patient drive to their facility to machine pecan picker supplies, however they close at 5pm. 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 - continue home aspirin [...] 5.05 (H) 11/19/2018 Kevin Prince MD, SERA Shirt Operator of Clinical Medicine [facility] Images from the original note were not included. Final Discharge Planning and Transportation Final Discharge Planning Discharge Disposition: Home Services at Discharge: Outpatient clinical services (ie: lab draws, transfusions, injectables) (Home Oxygen by [facility]) Selected Continued Care - Admitted Since 08/28/2023 Durable Medical Equipment Coordination complete. Service Provider Selected Services Address Phone Fax Patient Preferred [facility] Medical Supply Durable Medical Equipment [facility] [address] Internal Comment last updated by Lora Lawrence RN 09/10/2023 1334 Correct contact information: [facility] [address] [place] [address] [place] [address] metallurgical technician- you do not need to call at discharge, I already notified the company. Addendum [phone] [facility] notified this CM they are out of patient's insurance area and will not be able to service this patient at time of discharge. Provider notified. Addendum [phone] Dr Kelly called [facility] spoke to Lynn and she said they are willing to accept patient if the patient would drive to the [place] office and machine pecan picker the supplies. Patient is willing to [...] Lora Colón RN, MSN, CCM, CMCN Clinical Adapted Physical Education Aide- [facility] Transplant #[phone] Department of Pharmacy Transplant Note Patient: George [...] dose adjustment Name: Matt Kramer RPh,PharmD Phone: [phone] Date/Time: 09/10/2023 11:33 AM This CM sent referral via Etelos for O2 concentrator to 4 agencies Start date today Timer set for 1330 [employer] [facility] [employer] Addendum 1332 One accepting company reserved in [employer] [address] [place] [address] Lora Colón RN, MSN, CCM, CMCN Clinical Adapted Physical Education Aide- [facility] Transplant #[phone] NUTRITION FOLLOW-UP Nutrition Plan of Care: 1. Continue current diet order. 2. No oral supplements warranted at this time. 3. Monitor for significant weight changes. Monitor GI, skin integrity. 4. Monitor and encourage po intakes with goal of average po being 75-100%. 5. fill technician to follow. ___ Met with patient [...] time. Will continue to monitor. RHIANNON BirminghamR Pager:[phone] Transplant Infectious Disease (Team 3) Progress Note [...] sign off. Please Epic message or page [phone] with questions. 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 - continue home aspirin [...] to follow. Please Epic message or page [phone] with questions. 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 - continue home aspirin [...] 5.05 (H) 11/19/2018 Kevin Prince MD, SERA Shirt Operator of Clinical Medicine [facility] Transplant Infectious [...] to follow. Please Epic message or page [phone] with questions. Ann Marie Haskins MD PGY-4, [...] he continues to improve. Please message via [employer] secure chat or page with any questions or concerns. Evan White DO Shirt Operator Division of Infectious Disease Transplant Infectious Disease [...] to follow. Please Epic message or page [phone] with questions. Evan White DO Transplant Infectious [...] and interpreted reviewed the radiographic data in [employer]. 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 - continue home aspirin [...] 5.05 (H) 11/19/2018 Kevin Prince MD, MADISONN Shirt Operator of Clinical Medicine [facility] Images from the original note were not included. Pulmonary/Critical Care Medicine Daily Progress Note Reason for Consultation: bronch for infectious workup Requesting Physician: Dr. Prince CURRENT HOSPITALIZATION: Admit Date: 08/28/2023 [facility] LOS: 8 days Impression 1. [...] and interpreted reviewed the radiographic data in IS[facility]. Acute Occupational Therapy Evaluation Prior to Admission [...] Assessment: Transfer Assessment: Sit to Stand Transfer Haakon Level: Sit->Stand: independent Skilled Intervention/Details: Sit->Stand: x1 from EOB, x1 from toilet Stand to Sit Transfer Haakon Level: Stand->Sit: independent Skilled Intervention/Details: Stand->Sit: x1 to toilet, x1 to EOB Functional Mobility: Functional Mobility Haakon Level: Functional Mobility/Gait: independent Ambulation Distance (Feet): 20 Skilled Intervention/Details - Functional Mobility/Gait: pt performed functional mobility to/from RR w/ no overt LOB Outcome Score(s): CURRENT -[facility] Daily Activity Inpatient Short Form Putting on/Taking Off Lower Body Clothin - A Little Assistance Bathin - A Little Assistance Toiletin - A Little Assistance Putting on/Taking Off Upper Body Clothin - No Assistance Groomin - No Assistance Eatin - No Assistance CURRENT -[facility] Activity Raw Score: 21 CURRENT -[facility] Activity Functional Limitation/Modifier: 32.79% Currently Impaired in [...] Acute Physical Therapy Evaluation Prior to Admission [facility] score(s): PRIOR LEVEL AM-PAC Mobility Raw [...] Intact Mobility Assessment: Supine to Sit Mobility Haakon Level: Supine->Sit: modified independence Bed Features/Set-up: Supine->Sit: Head of bed elevated Sit to Supine Mobility Haakon Level: Sit->Supine: not tested Balance: Sitting Balance [...] environment. Transfer Assessment: Sit to Stand Transfer Haakon Level: Sit->Stand: independent Skilled Intervention/Details: Sit->Stand: From EOB x 2 without difficulty. Stand to Sit Transfer Haakon Level: Stand->Sit: independent Assistive Device: Stand->Sit: armed chair Skilled Rationale: Verbal cues, Positioning Gait/Functional Mobility: Gait Assessment Haakon Level: Gait: stand-by assist Assistive Device: Gait: rollator Ambulation Distance (Feet): 400 Gait Deviations Identified: decreased grace, decreased gait speed Gait Skilled Rationale: verbal, upright posture, increase step length, increase foot clearance Skilled Intervention/Details - Gait: Reasonable foot clearnce without loss of balance but endorsing dyspnea as 6-7/10. 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 - continue home aspirin [...] 5.05 (H) 11/19/2018 Kevin Prince MD, SERA Shirt Operator of Clinical Medicine [facility] Transplant Infectious [...] to follow. Please Epic message or page [phone] with questions. Evan White DO Transplant Infectious Diseases Images from the original note were not included. 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 - continue home aspirin [...] P 450 system Kevin Prince MD, SERA Shirt Operator of Clinical Medicine [facility] Comprehensive Transplant [facility] ERT Note: ERT called [...] MD, PhD Internal Medicine and Pediatrics PGY-3 [facility] Brief plan of care update: Called [...] MD, PhD Internal Medicine and Pediatrics PGY-3 [facility] Transplant Infectious Disease (Team 3) Progress [...] to follow. Please Epic message or page [phone] with questions. 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 - continue home aspirin [...] 5.05 (H) 11/19/2018 Kevin Prince MD, MADISONN Shirt Operator of Clinical Medicine [facility] [...] Lora Colón RN, MSN, CCM, CMCN Clinical Adapted Physical Education Aide- R10 Transplant #[phone] Made introductory visit with patient. Provided emotional and spiritual support. Patient shared about: - Source of Rosemary: Camping/Fishing/Family - Spirituality/Jain Affiliation: raised Roman Catholic - Family Support/history - Experience with illness/hospital course - Hopes for healing/future Inventory Worker provided: - Supportive presence - Active listening - Validation of feelings/emotions - Pledged prayer Patient encouraged to request a twisting press operator as needed. Chaplains are available in-house 24 hours a day and 7 days a week. For urgent matters in [facility], please page [phone]. If the request is not urgent, please enter a consult. Consults are responded to within 24 hours. Senior Staff Inventory Worker Angie Singh Mdiv, [facility] Kirk [phone] [email or web address] 22/06 On-call [place]: [phone] 22/06 Pager ,[facility], and Brock Hernandez Pager [phone] 10/04/23 1117 Clinical Encounter Type Visited With Patient Visit Type Introduction Pastoral Time Spent 15 min Referral Other (See Comment) (rounding) Spiritual Assessment Spiritual Observation Spirituality helpful Emotional Observation Coping well Hope Observation Specific hope focus Support Observation By Family Interventions Provided Active listening;Supportive presence Facilitated Verbalization of feelings Explored Expectations Heel Padder Education Heel Padder Service Available Yes Educated Patient Outcomes Patient Outcomes Reduced distress Plan of Care Continue Visiting PRN NUTRITION RISK SCREENING NOTE Nutrition Plan of Care: 1. Continue current diet order. 2. No oral supplements warranted at this time. 3. Monitor for significant weight changes. Monitor GI and skin integrity. 4. Monitor and encourage po intakes with goal of average po being 100%. 5. fill technician to follow. George Styles is a 53 y.o. 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 His post-transplant course was noteworthy for nephrostomy tube (05/17/2022-09/10/2022) due to concern for ureteral stone. He presents as a direct admission for fever, cough, for infectious workup. 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 Pt with [...] with meds Food Allergies reviewed:Shellfish Cultural or Jain Restrictions/Preferences: None GI: Last Bowel Movement: 09/01/23 [...] time. Will continue to monitor. 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 - continue home aspirin [...] as outlined above. Kevin Prince MD Pager [phone] Summary: Pharmacy Med Rec Department of Pharmacy [...] Refills: 0 Provider: Zuly Bruno NP Pharmacy: [facility] [place], [place] Other Comments: Patient reported his Last Home Dose of mycophenolate & tacrolimus was on 08/28/23 at 0900. Patient reported he was taking Bactrim and benzonatate for fevers and a cough he was having. Please feel free to contact me with any further questions. Name: Heidy Chatman Phone #: [phone] Date/Time: 09/01/2023 2:01 PM Time Spent: 15 minutes Associated attestation - Matt Kramer RPh,PharmD - 09/01/2023 2:28 PM EDT Department of Pharmacy Admission Medication Reconciliation Note Patient: George Styles Room/Bed: 1062/A I have reviewed the home medication list with the Seo Associate. All changes to the home medication list have been updated in [facility]. Updated HAND FABRIC CUTTER Med List: Prior to Admission Medications Prescriptions [...] questions. Name: Matt Kramer RPh,PharmD Phone #: [phone] Date/Time: 09/01/2023 2:28 PM Transplant Infectious Disease [...] crypto antigen, EBV PCR -follow pending histo, [id number] labs These recommendations were discussed with the primary team. Transplant ID (Team 3) will continue to follow. Please Epic message or page [phone] with questions. 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 - continue home aspirin [...] 5.05 (H) 11/19/2018 Kevin Prince MD, SERA Shirt Operator of Clinical Medicine [facility] Discharge Planning Patient Assessment [...] Yes Name and Contact information: Gian Jensen ([phone]) Reviewed and Updated in Demographics? : Yes [...] patient on Anticoagulation? : No [id number] [place] [address] - [address] [address] Fret Saw Operator Does the patient or senior human resources representative express financial concerns? : No Employed?: Disabled Coping/Stress Concerns about patient s coping and stress?: No Concerns about patient s caregiver s coping and stress?: No Values and Beliefs Cultural or hindu practices that may impact discharge planning and/or [...] Plan 1. Identified self and role as Adapted Physical Education Aide. 2. Confirmed and updated demographics and treatment team. 3. Adapted Physical Education Aide will continue to follow with medical team/pt for any other additional discharge needs. Kasandra DON RN CM *Please note I am float CM and work Thursday and Thursday every other week. Please call [phone] for assist in my absence. Internal Medicine Daily Progress Note Patient: George Styles, 1970, [id number] Physician: Evan Kelly MD, PGY-1, TM1 service [...] s/p combined Liver-kidney transplant on 04/13/20. 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 - continue home aspirin 81mg daily, atorvastatin 20mg daily Gout: continue home allopurinol 200mg daily BPH: continue home flomax 0.4mg daily DVT PPX: SQH Code Status: Full Code Disposition: Pending clinical course. Anticipate eventual discharge home. Discussed with team and attending, Kevin Prince MD, on rounds. Signed, Laurel Serrano MD, PhD documented in this encounter [facility] 09-10-2023 Hospital Discharge instructions Laurel Serrano [...] a sleep doctor. You will need to machine pecan picker the oxygen concentrator when you leave [...] on healthy foods. documented in this encounter [facility] 09-01-2023 Consult note Associated Order (s): IP CONSULT TO PULMONOLOGY Pulmonary Medicine Inpatient Consultation Reason for Consultation: bronch for infectious workup Requesting Physician: Dr. Prince Pulmonary Attending Physician: Dr. Diaz CURRENT HOSPITALIZATION: Admit Date: 08/28/2023 [facility] Hospital LOS: 4 days Impression/Recommendations: George [...] Recommendations: - Plan to bronch tomorrow morning. NPO@AL, order placed - would repeat HIV, last [...] short period of time. 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 Other histories as documented in the [...] contacts. He traveled to [place] to family reunion in May. REVIEW OF [...] GUIDANCE 05/17/2022 Surgeon: Enzo Heart DO; Location: [facility] INTERVENTIONAL RADIOLOGY (VIR) LIVER TRANSPLANT, ORTHOTOPIC N/A 04/12/2020 Laterality: N/A; Surgeon: LU Palma; Location: [facility] SAME DAY SURGERY MAIN OR KIDNEY TRANSPLANT W/O CACHIL DEHE NEPHRECTOMY N/A 04/12/2020 Laterality: N/A; Surgeon: LU Palma; Location: [facility] SAME DAY SURGERY MAIN OR [...] Alamo MD I can be reached via [employer] secure message (preferred) or Pager #[phone] documented in this encounter [facility] 08-28-2023 History and physical note Images from the original note were not included. Internal Medicine Admission History & Physical Patient: George Styles, 1970, [id number] Physician: Aric Turner MD, PGY1, Pager #[phone], service Date of face to face patient [...] So he went to see the transplant correspondence analyst. He was found elevated Cr and asked [...] Appetite is ok now. Urine is about 0625-9877 ml every day. Stool every day, no [...] DAY SURGERY MAIN OR KIDNEY TRANSPLANT W/O CACHIL DEHE NEPHRECTOMY N/A 04/12/2020 Laterality: N/A; Surgeon: LU Palma; Location: [facility] SAME DAY SURGERY MAIN OR [...] s/p combined Liver-kidney transplant on 5/15/20. 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 - continue aspirin 81mg [...] Pierson, Luisa Steven, Renee Rivera, Daisha Max Cotton Bag Clipper: José Miguel Garnica All Txt: 04/13/2020 (Kidney), [...] results found for: CYCLOSPORIN , CYCLOSPORIN2 , [id number] , CYCLORAND No results found for: SIROLIMUS [...] Rest as above. Kevin Prince MD Pager [phone] documented in this encounter [facility] 08-28-2023 History of Present illness Narrative Images from the original note were not included. 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 Cotton Bag Clipper: Anayeli Burt Date of Liver Transplant: 04/13/2020 (Kidney), 04/13/2020 (Liver) 3 years 4 months post Liver/Kidney Transplant Primary Disease: Hypertensive Nephrosclerosis Transplant Prize Fighter: Erma Roe/ Daisha Max Primary Care physician: [...] and faMOTIdine === None Specified Preferred Lab: [facility] Change in lab frequency / [...] every 12 hours. ADDITIONAL INFORMATION: None Specified, [id number] [place] [address] - [address] [facility] [address] [facility] [address] [facility] [address] [facility] [address] [facility][id number] [place] [address] [address] [facility] [address] [facility] [address] [facility] Jakob [address], [address] [facility] [address] ROS and SCREEN: Chest Pain: negative Cough: [...] PHYSICIAN: I saw George Styles at the [facility] on 08/28/2023. Patient is a 53 y.o. 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 Steve Latham MD director of child welfare services Division of Nephrology [facility] documented in this encounter [facility] 08-28-2023 Instructions Mainor Busby RN - 08/28/2023 2:15 PM EDT - Admission for fevers, cough, and night sweats documented in this encounter [facility] 08-19-2023 History of Present illness Narrative [facility] RX OUTREACH ADVANCED: Call Information: Date and Time of Contact: 08/19/2023 2:52 PM Method of Contact: By Phone Contact Type: Prescriptions Contactor: [facility] OP Contactee: Patient Shipping/Pickup: Medicare B Refill?: No Medication Name: Tacro 0.5mg Delivery Method: Air Delivery Location: Home Signature Required: No Mailing/Pickup Date: 08/25/2023 Shipping Address: [address] [place] [address] Contact Info: Specialty ([place]) [phone] [facility] [phone] [facility] [phone] Raheem [phone] Bedside Delivery ([facility]) [phone] documented in this encounter [facility] 06-12-2023 History of Present illness Narrative Images from the original note were not included. George Styles is a 53 y.o. 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 No longer follows with a local correspondence analyst. History of Present Illness: Since George was [...] and lab results. Rebeca Gutierrez MSN, RN, TAKE UP SUPERVISOR-BC, CCTN Certified Nurse Practitioner Comprehensive Transplant Center [facility] [address] [facility] [address] documented in this encounter [facility] 06-12-2023 Instructions JEANNA Hess - 06/12/2023 3:00 PM EDT No change in immunosuppression. documented in this encounter [facility] 06-10-2023 History of Present illness Narrative [facility] RX OUTREACH ADVANCED: Call Information: Method of Contact: By Phone Contact Type: Prescriptions Contactor: [facility] OP Contactee: Patient Contact Outcome: Left message Shipping/Pickup: Medication Name: Mycophenolate sod 180 mg Contact Info: Specialty ([place]) [phone] [facility] [phone] [facility] [phone] Raheem [phone] Bedside Delivery ([facility]) [phone] [facility] RX OUTREACH ADVANCED: Call Information: Date and Time of Contact: 06/12/2023 9:43 AM Method of Contact: By Phone Contact Type: Prescriptions Contactor: [facility] OP Contactee: Patient Contact Outcome: Left message and Follow-up Shipping/Pickup: Medicare B Refill?: No Medication Name: Myco 180 Contact Info: Specialty ([place]) [phone] Jakob [phone] [facility] [phone] Raheem [phone] Bedside Delivery ([facility]) [phone] [facility] RX OUTREACH ADVANCED: Call Information: Date and Time of Contact: 06/12/2023 10:08 AM Method of Contact: By Phone Contact Type: Prescriptions Contactor: [facility] OP Contactee: Patient Shipping/Pickup: Medicare B Refill?: No Medication Name: Mycophenolate 180mg DR Delivery Method: Air Delivery Location: Home Signature Required: No Mailing/Pickup Date: 06/17/2023 Shipping Address: [address] [place] [id number] Contact Info: Specialty ([place]) [phone] [facility] [phone] [facility] [phone] Raheem [phone] Bedside Delivery ([facility]) [phone] documented in this encounter [facility] 04-13-2023 Note [place] Cardiology - [facility] Subjective George Styles is a [...] on (more content not included)... [facility] 03-12-2023 History of Present illness Narrative [facility] RX OUTREACH ADVANCED: Call Information: Date and Time of Contact: 03/12/2023 10:34 AM Method of Contact: By Phone Contact Type: Prescriptions Contactor: [facility] OP Contactee: Patient Shipping/Pickup: Medicare B Refill?: No Medication Name: Mycophenoloate sod 360 mg prednisone 5mg Delivery Method: Air Delivery Location: Home Signature Required: No Mailing/Pickup Date: 03/16/2023 Shipping Address: [address] [place] [address] Contact Info: Specialty ([place]) [phone] [facility] [phone] [facility] [phone] Raheem [phone] Bedside Delivery ([facility]) [phone] [facility] RX OUTREACH ADVANCED: Call Information: [...] Required: No Mailing/Pickup Date: 03/19/2023 Shipping Address: [address] [place] [address] [address] Contact Info: Specialty ([place]) [phone] [facility] [phone] [facility] [phone] Raheem [phone] Bedside Delivery ([facility]) [phone] documented in this encounter [facility] 03-10-2023 History of Present illness Narrative [facility] RX OUTREACH ADVANCED: Call Information: Date and Time of Contact: 03/10/2023 12:00 PM Method of Contact: By Phone Contact Type: Prescriptions Contactor: [facility] OP Contactee: Patient Contact Outcome: Left message and Call back later Shipping/Pickup: Medication Name: Mycophenolate ; Tacrolimus Contact Info: Specialty ([place]) [phone] [facility] [phone] [facility] [phone] Raheem [phone] Bedside Delivery ([facility]) [phone] documented in this encounter [facility] 03-10-2023 History of Present illness Narrative [facility] RX OUTREACH ADVANCED: Call Information: Date and Time of Contact: 03/10/2023 12:00 PM Method of Contact: By Phone Contact Type: Prescriptions Contactor: [facility] OP Contactee: Patient Contact Outcome: Left message and Call back later Shipping/Pickup: Medication Name: Mycophenolate ; Tacrolimus Contact Info: Specialty ([place]) [phone] Jakob [phone] [facility] [phone] Raheem [phone] Bedside Delivery ([facility]) [phone] [facility] OP RX OUTREACH ADVANCED: Call Information: Date and Time of Contact: 03/12/2023 10:32 AM Method of Contact: By Phone Contact Type: Prescriptions Contactor: [facility] OP Contactee: Patient Contact Outcome: Left message Shipping/Pickup: Medication Name: Mycophenolate sodium (MYFORTIC) 180 MG Tab tacrolimus 0.5 mg Contact Info: Specialty ([place]) [phone] Jakob [phone] [facility] [phone] Raheem [phone] Bedside Delivery ([facility]) [phone] documented in this encounter [facility] 01-16-2023 History of Present illness Narrative [...] GUIDANCE 05/17/2022 Surgeon: Enzo Heart DO; Location: [facility] INTERVENTIONAL RADIOLOGY (VIR) LIVER TRANSPLANT, ORTHOTOPIC N/A 04/12/2020 Laterality: N/A; Surgeon: LU Palma; Location: [facility] SAME DAY SURGERY MAIN OR KIDNEY TRANSPLANT W/O CACHIL DEHE NEPHRECTOMY N/A 04/12/2020 Laterality: N/A; Surgeon: LU Palma; Location: [facility] SAME DAY SURGERY MAIN OR [...] 0.3 12/29/2022 Explant Pathology Pathologic Diagnosis A. [place] liver, orthotopic liver transplant resection (1458 gram): [...] A/P with IV contrast (06/27/2022): 1. Both knik kidneys are atrophic with improvement in right-sided [...] frequent nighttime urination, etc). Daisha Max DO Shirt Operator Gastroenterology, Hepatology and Nutrition [facility] Pager: [phone] Images from the original note were not included. 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 Cotton Bag Clipper: Anayeli Burt Date of Liver Transplant: 04/13/2020 (Kidney), 04/13/2020 (Liver) 2 years, 8 months post Liver/Kidney Transplant Primary Disease: Hypertensive Nephrosclerosis Transplant Prize Fighter: Steve Latham Primary Care physician: Zuly Bruno [...] levels: No results found for: CYCLOSPORIN, CYCLOSPORIN2, [id number], CYCLORAND No components found for: CYCLOSPORINE, 2HR [...] hours. ADDITIONAL INFORMATION: None Specified [id number] [place] [address] - [address] [facility] [address] [facility] [address] [facility] [place] [facility] [address] , [address] [facility] [facility] [address] [id number] [place] [address] [address] [facility] [address] [facility] [address] [facility] [address], [place] [address] [facility] [address] ROS and SCREEN: Chest Pain: negative Cough: [...] PHYSICIAN: documented in this encounter [facility] 01-16-2023 Instructions José Miguel Garnica RN - 01/16/2023 9:40 AM EST - Labs Every 2 months - Discuss night time urination with your PCP - Schedule Colonoscopy through PCP - Follow up in 1 year documented in this encounter [facility] 09-10-2022 History of Present illness Narrative [...] and no hydronephrosis. Some reflux up the knik right ureter but good drainage of both transplant and knik ureter to the bladder. Nephrostomy tube was [...] transplant, orthotopic (N/A, 04/12/2020); kidney transplant w/o knik nephrectomy (N/A, 04/12/2020); and placement nephrostomy catheter [...] Negative for , diarrhea, constipation Genitourinary: See GULKANA Neurological: Negative for headaches. Lymph/Heme: Negative for [...] x 4, Normal strength. No edema. Skin: [place], warm, and dry. There are no rashes [...] and no hydronephrosis. Some reflux up the knik right ureter but good drainage of both transplant and knik ureter to the bladder. Nephrostomy tube was [...] documented in this encounter [facility] 07-07-2022 History of Present illness Narrative [...] off the table and escorted to medical secretary receptionist where they made a follow [...] to have transplant ureter with anastomosis to knik right ureter. Nephrostogram without filling defects and no hydronephrosis. Some reflux up the knik right ureter but good drainage of both transplant and knik ureter to the bladder. Nephrostomy tube was [...] documented in this encounter [facility] 06-27-2022 History of Present illness Narrative [...] transplant, orthotopic (N/A, 04/12/2020); kidney transplant w/o knik nephrectomy (N/A, 04/12/2020); and placement nephrostomy catheter [...] Negative for , diarrhea, constipation Genitourinary: See GULKANA Neurological: Negative for headaches. Lymph/Heme: Negative for [...] x 4, Normal strength. No edema. Skin: [place], warm, and dry. 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 Nephrostomy tube placed [...] needed. documented in this encounter [facility] 06-27-2022 History and physical note Patient was evaluated in clinic as a nurse visit. Please refer to Rena Brewster's note. [facility] Work Phone: 06-27-2022 History and physical note Patient was evaluated in clinic as a nurse visit. Please refer to Rena Brewster's note. documented in this encounter [facility] 06-27-2022 History of Present illness Narrative TEACHING REGARDING TX NEPH COMPLETED-NEPH TUBE SITE DRY AND INTACT-CLEAR YELLOW URINE IN THE BAG-INSTRUCTED ABOUT FLUSHING, BAG CHANGING ETC. NUMEROUS QUESTIONS ASKED AND ANSWERED-VERBALIZED UNDERSTANDING documented in this encounter [facility] 06-18-2022 Note EXAMINATION: CT ABD/ PELVIS [...] mass or enlargement. KIDNEYS: Marked atrophy of knik kidneys. Transplant right pelvic kidney with percutaneous [...] by: MÓNICA JIMENEZ Date: 2022-06-18 13:[address] [facility] 06-12-2022 Instructions Anayeli Christianson RN - 06/12/2022 3:21 PM EDT Do not take apart/disrupt nephrostomy tube system. Call Interventional Radiology and/or on-call transplant nurse [phone] for instruction if need to flush (clot or decreased flow). Take cipro 500mg, one tablet, twice per day for 14 days documented in this encounter [facility] 06-12-2022 History of Present illness Narrative Images from the original note were not included. 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 Cotton Bag Clipper: Anayeli Burt Date of Liver Transplant: 04/13/2020 (Kidney), 04/13/2020 (Liver) 2 year, 1 months post Liver/Kidney Transplant Primary Disease: Hypertensive Nephrosclerosis Transplant Prize Fighter: Steve Latham Primary Care physician: Zuly Summerslydiajose [...] Non-obstructing kidney stone in renal graft at [facility]. Percutaneous Neph Tube placed Images from the original note were not included. Nursing Assessment In Clinic (see Clinic Prep Sheet for additional information) Patient is accompanied to clinic today by: self Did patient require a wheelchair or medical transport for appointment: no Did help desk analyst confirm current address and insurance information is [...] LAB AND PHARMACY: None Specified [facility] [place] [address] - [address] [facility] [address] [facility] [address] [facility] [address] [facility] [address] [facility][id number] [place] [address] [address] [facility] [address] [facility] [address] [facility] [address], [place] [address] [facility] [address] ROS and SCREEN: Chest Pain: negative Cough: negative SOB: negative Abd Pain: negative Nausea: positive Vomiting: negative Diarrhea: negative Constipation: negative Dysuria: positive Edema: negative Tremors: negative Headaches: negative Wound issues: negative Pt has neph tube w clear yellow urine. States he had a small clot that he dislodged QUESTIONS OR CONCERNS TO ADDRESS WITH PHYSICIAN: I saw George Styles at the [facility] on 06/12/2022. Patient is a 52 y.o. 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 His knik kidney disease was noted to be presumed [...] 04/12/2020 Laterality: N/A; Surgeon: LU Palma; Location: [facility] SAME DAY SURGERY MAIN OR KIDNEY TRANSPLANT W/O CACHIL DEHE NEPHRECTOMY N/A 04/12/2020 Laterality: N/A; Surgeon: LU Palma; Location: [facility] SAME DAY SURGERY MAIN OR [...] you have any questions. Steve Latham MD director of child welfare services Division of Nephrology [facility] documented in this encounter [facility] 06-04-2022 Instructions TATI GROVE - 06/04/2022 11:04 AM EDT Thank you for joining us for your neph tube follow up. We recommend routine exchange every 8-10 weeks. Please reach out at [phone] when it is time to set your next routine exchange. Thank you IR clinic documented in this encounter [facility] 06-04-2022 History of Present illness Narrative [...] understanding. documented in this encounter [facility] 05-20-2022 Note Formatting of this n [...] his discharge. Leon Cook RN [facility] 05-20-2022 Miscellaneous Notes Patient discharged. AVS [...] provide teaching before his discharge Leon RN #[id number] Leon Cook RN Afternoon assessment completed at [...] Interdisciplinary Rounds/Family Conf Outcome: Ongoing Discussed with [facility] re: possible urine culture performed [...] with questions. Evan Byrd MD Urology, PGY-2 #[id number] I certify that this patient requires inpatient [...] RN documented in this encounter [facility] 05-20-2022 Note Formatting of this n [...] care. Outcome: Adequate for Discharge [facility] 05-20-2022 Note Formatting of this n ote might be different from the original. Anne Dillard MD R10 Rm 100 [address] George Please let's have a clear order on how the nephrostomy site dressing need to be changed when the patient goes home so we provide teaching before his discharge Leon RN #[id number] Leon Cook RN [facility] 05-20-2022 History of Present illness Narrative Images from the original note were not included. [facility] Note: [facility] received the following discharge prescription(s): Medication reconciliation was completed with comparison to discharge reconciliation report. The prescription(s) will be delivered to the patient's bedside on 05/20/22. Total cost is $0. Yanira Her RPh,PharmD Specialty ([place]) [phone] Jakob [phone] [facility] [phone] Raheem [phone] [place] [phone] Bedside Delivery ([facility]) [phone] Attending I saw George Styles at the [facility] on 05/19/2022. I saw and [...] IS Follow-up with urology for ongoing management aMxi Pringle MD Internal Medicine Daily Progress Note Patient: George Styles, 1970, [id number] Physician: Liam Julian MD, PGY-3, Pager #[phone], [email or web address] Subjective/Interval History: No acute events overnight. Passed [...] MD (Peggy) Division of Hospital Medicine Pager [phone] Attending I saw George Styles at the [facility] on 05/18/2022. I saw and [...] Daily Progress Note Patient: George Styles, 1970, [id number] Physician: Nishant Gamez MD, PGY2, Pager #[phone], [email or web address] Subjective/Interval History: Nephrostomy tube placed yesterday with [...] to have stablized for this to be senior human resources representative. Daya (Nunu) Jeff Saldana MD Division of Hospital Medicine Pager [phone] Internal Medicine Daily Progress Note Patient: George Styles, 1970, [id number] Physician: Nishant Gamez MD, PGY2, Pager #[phone], [email or web address] Subjective/Interval History: Worsening creatinine this morning with [...] MD (Peggy) Division of Hospital Medicine Pager [phone] Attending I saw George Styles at the [facility] on 05/17/2022. I saw and [...] of chart and discussion with treatment team, Adapted Physical Education Aide has not identified needs at this time. [...] follow. Introduced self and role of the twisting press operator to patient. Provided emotional and spiritual support and the patient responded by sharing their experience and discussed the following: - Spirituality/Jain Affiliation: As a kid attended Roman Catholic mormon but not a strong identity now - Family support - pt's brothers live close by Inventory Worker provided: - Supportive presence - Active listening - Validation of feelings/emotions Patient encouraged to request a twisting press operator as needed. Chaplains are available in-house 24 hours a day and 7 days a week. For urgent matters in [facility], please page [phone]. If the request is not urgent, please enter a consult. Consults are responded to within 24 hours. Angie Singh Mdiv, [facility] and Transplant [place] [address] Inventory Worker [facility] Inventory Worker Kirk [phone] [email or web address] 22/06 [facility] Pager [phone] 22/06 Pager ,[facility], and Brock 1500 22/06 Raheem Pager [phone] 05/16/22 1129 Clinical Encounter Type Visited With Patient Visit Type Introduction Pastoral Time Spent 15 min Referral Other (See Comment) (Rounding) Spiritual Assessment Spiritual Observation Spirituality helpful;Identifies as (see comment) (Hoahaoism) Emotional Observation Coping well Hope Observation Hopeful and accepting Support Observation By Family Interventions Provided Active listening;Supportive presence Facilitated Verbalization of feelings;Sharing of life story;Identifying support system Explored Expectations Heel Padder Education Heel Padder Service Available Yes Educated Patient Outcomes Patient Outcomes Articulated purpose/meaning Plan of Care Continue Visiting PRN Internal Medicine Daily Progress Note Patient: George Styles, 1970, [id number] Physician: Nishant Gamez MD, PGY2, Pager #[phone], [email or web address] Subjective/Interval History: Overall feeling okay this morning. 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 Objective/Observation: [...] Supervision Transfer Assessment: Sit to Stand Transfer Haakon Level: Sit->Stand: independent Skilled Intervention/Details: Sit->Stand: x1 from EOB Stand to Sit Transfer Haakon Level: Stand->Sit: supervision Assistive Device: Stand->Sit: armed chair Skilled Rationale: Controlled descent for sitting, Verbal cues Gait/Functional Mobility: Gait Assessment Haakon Level: Gait: supervision Assistive Device: Gait: gait belt Gait Distance (feet): 200 Gait Deviations Identified: decreased grace, decreased step length, decreased stride length Gait Skilled Rationale: verbal, upright posture Skilled Intervention/Details - Gait: Pt with steady gait without LOB or complaints of SOB. Stairs: Stairs Assessment Haakon Level: Stair Negotiation: stand-by assist Assistive Device: Stair Negotiation: gait belt, left rail (ascending) Number of stairs: 9 Stairs Skilled Rationale: reciprocal pattern Outcome Score(s): CURRENT [facility] Basic Mobility Inpatient Short Form Turning over in bed: 4 - No Assistance Sitting/standing from chair: 4 - No Assistance Moving from lying on back to sittin - No Assistance Moving to and from bed to chair: 4 - No Assistance Walk in hospital room: 3 - A Little Assistance Climbing 3-5 steps with a railin - A Little Assistance CURRENT [facility] Mobility Raw Score: 22 CURRENT [facility] Mobility Functional Limitation/Modifier: 20.91% Currently Impaired [...] reported no concerns with discharging home with marblehead support. 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 IADL History IADLs: independent Primary Language: Dominican Home Management Skills: independent Meal Prep Responsibility: [...] Assessment: Transfer Assessment: Sit to Stand Transfer Haakon Level: Sit->Stand: independent Skilled Rationale: Cues for increased safety Skilled Intervention/Details: Sit->Stand: x1 EOB Stand to Sit Transfer Haakon Level: Stand->Sit: supervision Assistive Device: Stand->Sit: gait belt, armed chair Skilled Rationale: Verbal cues, Controlled descent for sitting, Cues for increased safety Skilled Intervention/Details: Stand->Sit: cues for hand placement and controlled descent Functional Mobility: Functional Mobility Haakon Level: Functional Mobility/Gait: stand-by assist Assistive Device: Functional Mobility/Gait: gait belt Functional Mobility Distance: Distance needed for limited community mobility Functional Mobility Deficits: Activity tolerance, Balance, Decreased step length, Generalized weakness Functional Mobility Skilled Rationale: Verbal cues, Facilitate postural control Skilled Intervention/Details - Functional Mobility/Gait: cues for upright posture Outcome Score(s): CURRENT [facility] Daily Activity Inpatient Short Form Putting on/Taking Off Lower Body Clothin - A Little Assistance Bathin - A Little Assistance Toiletin - A Little Assistance Putting on/Taking Off Upper Body Clothin - No Assistance Groomin - No Assistance Eatin - No Assistance CURRENT [facility] Activity Raw Score: 21 CURRENT [facility] Activity Functional Limitation/Modifier: 32.79% Currently Impaired [...] DAY SURGERY MAIN OR KIDNEY TRANSPLANT W/O CACHIL DEHE NEPHRECTOMY N/A 04/12/2020 Laterality: N/A; Surgeon: LU [...] by: Mel Norman OT, OTR/L License #: [id number] pager # [phone] 05/20/2022 Upon discontinuation of Acute Care Occupational Therapy Services or patient discharge from the hospital this note represents the current Occupational Therapy Discharge Summary. documented in this encounter [facility] 05-20-2022 Hospital course Narrative Discharge Summary Name: George Styles Age: 52 y.o. Birthday: 1970 Admit Date: 05/15/2022 3:51 PM Discharge Date: 05/20/22 Discharge Time: 11:52 AM Discharge Unit: Gen Med 4 Admission Information Admitting Physician: Daya Saldana MD Discharge Information Discharge Physician: Daya Saldana MD Problem List Active Hospital Problems Diagnosis FYAE (acute kidney injury) Resolved Hospital Problems No resolved problems to display. FURTHER RECOMMENDATIONS: 1. Follow up with IR and urology are scheduled DISCHARGE LETTER: Dear Doctors, I recently had the opportunity to care for George Styles during his recent hospital stay at [facility]. As you may know, George Styles, is [...] Saldana MD Division of Hospital Medicine p: [phone] f: [phone] CONSULTS DURING ADMISSION: IP CONSULT TO SURGERY - UROLOGY IP CONSULT TO NEPHROLOGY - TRANSPLANT (MEDICINE) IP CONSULT TO INTERVENTIONAL RADIOLOGY IP CONSULT TO PHYSICAL THERAPY IP CONSULT TO OCCUPATIONAL THERAPY IP CONSULT TO PHARMACY BEDSIDE DISCHARGE MED DELIVERY IMAGING / PROCEDURES / RESULTS: Should you require further information or copies of results or reports please contact Medical Information Management @ [phone] LABS AT TIME OF DISCHARGE: Lab Results [...] Bruno [address] [place] / [place] [address] MEDICATIONS: Discharge Orders CT ABDOMEN/PELVIS WITHOUT CONTRAST [...] CAPS Generic drug: docusate Follow-up: Zuly Bruno, TOURIST INFORMATION OFFICER [address] [facility] [address] Schedule an appointment as soon as possible for a visit Follow-up appointment with your, primary care physician within 7-10 days, after discharge. [address] [facility] [address] Follow up The department of urology will call you with a follow up appointment. LU Ovalle [address] 11th Floor [facility] [address] Follow up Please make a follow up appointment with Dr. Latham's office. Upcoming Appointments (up to five)-Some appointments for Medical Center outpatient clinics or diagnostic testing locations are not displayed below Provider Department Dept Phone 06/04/2022 10:40 AM IR CLINIC [facility] Interventional Radiology Clinic [phone] 06/27/2022 1:30 PM [facility], [facility] Department of Radiology Arrive at: Arrive to First Floor Registration Desk [phone] 06/27/2022 2:40 PM Ryan Hurt [facility] Arrive at: Arrive to 2nd Floor, Registration [address] 10/31/2022 1:00 PM Steve Latham [facility] Transplant [facility] [phone] 01/16/2023 9:40 AM TRANSPLANT HEPATOLOGY 3, [facility] Transplant [facility] [phone] Associated attestation - Daya Saldana MD - [...] Saldana MD Division of Hospital Medicine Pager [phone] documented in this encounter [facility] 05-20-2022 Hospital Discharge instructions Giulia Cavazos [...] be changed by Interventional Radiology. Please call [phone] to schedule this appointment and with any questions or concerns you may have regarding the nephrostomy tube. If you have questions or concerns, please call Interventional Radiology at SOMEONE FROM INTERVENTIONAL RADIOLOGY WILL CALL YOU FOR A FOLLOW UP IN THE IR CLINIC Giulia Cavazos RN Nurse Coordinator Interventional Radiology Interventional Radiology Outpatient scheduling documented in this encounter [facility] 05-19-2022 Note Formatting of this n [...] Ongoing Goal: Interdisciplinary Rounds/Family Conf Outcome: Ongoing [facility] 05-19-2022 Note Formatting of this n ote might be different from the original. Discussed with [facility] re: possible urine culture performed at their facility. However, based on urinalysis completed at that time, which was only notable for hematuria, culture was not performed and sample no longer feasible for culture. Liam Julian MD Internal Medicine/Pediatrics, PGY-3 [facility] 05-18-2022 Note Formatting of this n ote might be different from the original. 2002: IHIS message sent to Dr Justyn Wen, regarding patient passing a small kidney stone, about the size of pea. MD notified. Stone left in strainer in pt bathroom. 499: IHIS message sent to Dr Justyn Wen, regarding pt BP 174/77. [facility] 05-18-2022 Note Formatting of this n [...] discharge/transition of care. Outcome: Ongoing [facility] 05-18-2022 Note Formatting of this n [...] NS should instead be used. [facility] Work Phone: 05-18-2022 Note Formatting of this n ote might be different from the original. IHIS chat sent to Dr Tray Quintana, regarding pt BP 190/86. Pt complaining of pain at site of neph tube. PRN pain medication given per order parameters. Pt denies any other symptoms at this time. MD notified and aware. [facility] 05-17-2022 Note Formatting of this n ote might be different from the original. At 0900, I rounded with Dr. Gamez and Dr. Saldana. At that time I checked Mr. Styles's vital signs. His pulse oximeter was low and he was tachypneic. Verbal order at bedside to put nasal cannula on starting at 2liters oxygen and to provide incentive spirometer. [facility] 05-17-2022 Note Formatting of this n ote might be different from the original. Interventional Radiology procedure completed with IR Attending Dr. Heart / Dr. Le of percutaneous right nephrostomy tube placement transplant kidney 10.2 Fr Griffin acosta Pt tolerated procedure with moderate sedation local numbing agent . Transported to inpatient after phase I recovery. Post procedure orders in place. [facility] 05-16-2022 Note Formatting of this n ote might be different from the original. At 1530, I text chavad Kaitlynn Gomez MD that patient has only had 25ml urine output in matias this afternoon. [facility] 05-16-2022 Note Formatting of this n [...] with questions. Evan Byrd MD Urology, PGY-2 #[id number] [facility] Work Phone: 05-16-2022 Note Formatting of [...] be discharge to home. [facility] 05-16-2022 Consult note Associated Order (s): IP CONSULT TO NEPHROLOGY - TRANSPLANT (MEDICINE) I saw George Styles at the [facility] on 05/16/2022. Reason for Consultation: [...] he was given flomax and sent home. [place] better but noticed more pain and decreased [...] and recommendations. Maxi Pringle MD [facility] Work Phone: 05-16-2022 Consult note Associated Order (s): IP CONSULT TO NEPHROLOGY - TRANSPLANT (MEDICINE) I saw George Styles at the [facility] on 05/16/2022. Reason for Consultation: [...] he was given flomax and sent home. [place] better but noticed more pain and decreased [...] states he went to his local ED [facility] and he was put on Flomax and he did improve. Pt states last night he was unable to void with severe right sided abd pain. Pt states nausea and no vomiting or fevers. Pt states he went back to [facility] ED at 0100 and they placed a [...] orthotopic (N/A, 04/12/2020); and kidney transplant w/o knik nephrectomy (N/A, 04/12/2020). 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 The knik kidneys are progressively atrophic bilaterally compared to [...] of 06/14/2020 are no longer present. The knik distal right ureter is decompressed beyond this [...] with surgical history for renal graft and knik right urinary drainage, as a discrete ureteroneocystostomy is not identified, and the graft may be draining via a ureteroureterostomy. Urology consultation recommended. 3. The knik kidneys are bilaterally atrophic, with right renal sinus calcifications consistent with nonobstructing right knik renal calculi up to 6 mm. Normal [...] PGY-3, Department of Urologic Surgery Pager #: [phone] Associated attestation - Ryan Hurt MD - [...] documented in this encounter [facility] 05-16-2022 Note Formatting of this n [...] Relationship/Rapport: care explained choices provided [facility] 05-16-2022 Note Formatting of this n ote might be different from the original. On admission to 0, a dual RN initial assessment of skin condition was performed by Kallie Lorenzana RN and Sheri Arguelles RN. Skin Assessment: WDL Jose Score: 20 LDA Added:N Kallie Lorenzana RN [facility] 05-15-2022 Emergency department Note Report given to Kallie RN at 10 [facility] 05-15-2022 Emergency department Note Report given to Kallie RN at [address] Villatoro at bedside, 14ml noted Advised Dr Schneider concerning no urine output via matais catheter. ED Attending George Styles has a past medical history of Acute renal failure, CAD (coronary artery disease), Cirrhosis, Dialysis patient, End stage renal disease (06/01/2018), Essential hypertension, benign, Hepatic encephalopathy, History of blood transfusion, and Liver cirrhosis. Presents with a chief complaint of kidney stone and diagnosed Thursday and was sent home with [facility]. He went back to that ED and [...] 04/12/2020 Laterality: N/A; Surgeon: LU Palma; Location: [facility] SAME DAY SURGERY MAIN OR KIDNEY TRANSPLANT W/O CACHIL DEHE NEPHRECTOMY N/A 04/12/2020 Laterality: N/A; Surgeon: LU Palma; Location: [facility] SAME DAY SURGERY MAIN OR [...] Schneider MD Resident 05/15/222030 Pt arrives from [facility] with kidney stones. Pt states he had right lower abd pain and right flank pain with blood in his urine since Thursday. Pt states he went to his local ED [place] and he was put on Flomax and he did improve. Pt states last night he was unable to void with severe right sided abd pain. Pt states nausea and no vomiting or fevers. Pt states he went back to [place] ED at 0100 and they placed a matias and CT scan completed and multiple kidney stones noted. [facility] he had liver and kidney transplant in 03/2020. documented in this encounter [facility] 05-15-2022 History and physical note Internal Medicine Admission History & Physical Patient: George Styles, 1970, [id number] Physician: Evan Bennett MD, PGY1, Pager #[phone], GM 4 service Date of face to [...] 04/12/2020 Laterality: N/A; Surgeon: LU Palma; Location: [facility] SAME DAY SURGERY MAIN OR KIDNEY TRANSPLANT W/O CACHIL DEHE NEPHRECTOMY N/A 04/12/2020 Laterality: N/A; Surgeon: LU Palma; Location: [facility] SAME DAY SURGERY MAIN OR [...] erythema: Skin: No jaundice or rash Neuro: dredge pump operator 3-7, 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 Strength [...] dilation of the calyces may represent narrowing/partial [id number] ofthe ureter and mild hydronephrosis or sequela [...] Fred Prince MD Division of Hospital Medicine [phone] [facility] Work Phone: 05-15-2022 History and physical note Internal Medicine Admission History & Physical Patient: George Styles, 1970, [id number] Physician: Evan Bennett MD, PGY1, Pager #[phone], GM 4 service Date of face to [...] DAY SURGERY MAIN OR KIDNEY TRANSPLANT W/O CACHIL DEHE NEPHRECTOMY N/A 04/12/2020 Laterality: N/A; Surgeon: LU [...] erythema: Skin: No jaundice or rash Neuro: dredge pump operator 3-7, 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 Strength [...] dilation of the calyces may represent narrowing/partial [id number] ofthe ureter and mild hydronephrosis or sequela [...] documented in this encounter [facility] 05-15-2022 Emergency department Note Bladder scan with Dr Villatoro at bedside, 14ml noted [facility] 05-15-2022 Consult note Associated Order (s): [...] states he went to his local ED [place] and he was put on Flomax and he did improve. Pt states last night he was unable to void with severe right sided abd pain. Pt states nausea and no vomiting or fevers. Pt states he went back to [place] ED at 0100 and they placed a [...] orthotopic (N/A, 04/12/2020); and kidney transplant w/o knik nephrectomy (N/A, 04/12/2020). 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 The knik kidneys are progressively atrophic bilaterally compared to [...] of 06/14/2020 are no longer present. The knik distal right ureter is decompressed beyond this [...] with surgical history for renal graft and knik right urinary drainage, as a discrete ureteroneocystostomy is not identified, and the graft may be draining via a ureteroureterostomy. Urology consultation recommended. 3. The knik kidneys are bilaterally atrophic, with right renal sinus calcifications consistent with nonobstructing right knik renal calculi up to 6 mm. Normal [...] PGY-3, Department of Urologic Surgery Pager #: [phone] Associated attestation - Ryan Hurt MD - [...] intervention --may continue flomax [facility] Work Phone: 05-15-2022 Emergency department Note Advised Dr Schneider concerning no urine output via matias catheter. [facility] 05-15-2022 Physician Emergency department Note ED [...] care. Gian Villatoro MD 05/15/222003 [facility] Work Phone: 05-15-[address] Schneider made aware of only 30 ml urine via matias since arrival to room. [facility] 05-15-2022 Physician Emergency department Note dEPARTMENT [...] 04/12/2020 Laterality: N/A; Surgeon: LU Palma; Location: [facility] SAME DAY SURGERY MAIN OR KIDNEY TRANSPLANT W/O CACHIL DEHE NEPHRECTOMY N/A 04/12/2020 Laterality: N/A; Surgeon: LU Palma; Location: [facility] SAME DAY SURGERY MAIN OR [...] any incorrections. Matt Schneider MD Resident 05/15/222030 [facility] Work Phone: 05-15-2022 Emergency department Note Pt arrives from [facility] with kidney stones. Pt states he had right lower abd pain and right flank pain with blood in his urine since Thursday. Pt states he went to his local ED [place] and he was put on Flomax and he did improve. Pt states last night he was unable to void with severe right sided abd pain. Pt states nausea and no vomiting or fevers. Pt states he went back to [place] ED at 0100 and they placed a matias and CT scan completed and multiple kidney stones noted. [facility] as he had liver and kidney transplant in 03/2020. [facility] 03-14-2022 History of Present illness Narrative [...] Required: No Mailing/Pickup Date: 03/17/2022 Shipping Address: [address] [place] [address] Contact Info: Specialty ([place]) [phone] [facility] [phone] [facility] [phone] Raheem [phone] Bedside Delivery ([facility]) [phone] documented in this encounter [facility] 06-14-2021 History of Present illness Narrative [...] 05/16/22 Goal Progress: Satisfactory Contact Info: Specialty ([place]) [phone] [facility] [phone] [facility] [phone] [facility] [phone] Bedside Delivery ([facility]) [phone] [facility]: Call Information: Date [...] Location: Home Signature Required: Yes Shipping Address: [address] [place], [place] [id number] Contact Info: Specialty ([place]) [phone] Jakob [phone] [facility] [phone] [facility] [phone] Bedside Delivery ([facility]) [phone] documented in this encounter [facility] Evaluation note Diagnosis FAYE (acute kidney injury)- Primary Acute kidney failure, unspecified Hydronephrosis due to obstruction of ureteral orifice Hydronephrosis due to obstruction of ureteral orifice FAYE (acute kidney injury) Acute kidney failure, unspecified [facility] Diagnosis Follow-up exam- Primary Unspecified follow-up examination [facility] Diagnosis Immunosuppressed status- Primary Unspecified disorder of immune mechanism Kidney replaced by transplant Liver replaced by transplant Abnormal blood chemistry Other abnormal blood chemistry High risk medication use Encounter for long-term (current) use of other medications Aftercare following organ transplant Liver transplant recipient [facility] Diagnosis Attention to nephrostomy- Primary [facility] Diagnosis Other hydronephrosis- Primary [facility] Diagnosis FAYE (acute kidney injury) Acute kidney failure, unspecified [facility] Diagnosis Other hydronephrosis- Primary -donor kidney transplant recipient Kidney replaced by transplant [facility] Diagnosis Other hydronephrosis [facility] Diagnosis 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) Encounter for screening for malignant neoplasm of prostate Special screening for malignant neoplasm of prostate [facility] Diagnosis Abnormal blood chemistry- Primary Other abnormal blood chemistry Liver transplant recipient Kidney replaced by transplant Immunosuppressed status Unspecified disorder of immune mechanism Aftercare following organ transplant [facility] Diagnosis Kidney replaced by transplant- Primary [facility] Diagnosis Immunosuppressed status- Primary Unspecified disorder of immune mechanism Kidney replaced by transplant Aftercare following organ transplant High risk medication use Encounter for long-term (current) use of other medications Other general symptoms and signs Abnormal blood chemistry Other abnormal blood chemistry Hypertension secondary to other renal disorders [facility] Diagnosis Histoplasmosis- Primary Histoplasmosis, unspecified [...] [facility] Diagnosis Bilateral lower extremity edema- Primary 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) Atherosclerosis 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) Atherosclerosis of aorta Obesity (BMI 30-39.9) DARLENE (obstructive sleep apnea) Obstructive sleep apnea (adult) (pediatric) Tremor Abnormal involuntary movements Immunocompromised (CMS/HCC) Unspecified immunity deficiency Primary hypertension (CMS/HCC) Unspecified essential hypertension Shortness of breath documented in this encounter [facility]* Diagnosis Pleural effusion on right- [...] pre-operative examination [facility] Diagnosis Heart failure, diastolic, acute- Primary Acute diastolic heart failure [facility] Consultation (Routine) - New Request Specialty Diagnoses / Procedures Referred By Deni edwards Referred To Contact Interventional Radiology Diagnoses Hydronephrosis due to obstruction of ureteral orifice Daya Saldana MD [address] [place] [address] Referral ID Status Reason Start Date Expiration Date V isits Requested Visits Authorized [id number] New Request 05/18/2022 06/12/2023 1 1 * Radiology (Emergency) - New Request Specialty Diagnoses / Procedures Referred By Contac t Referred To Contact Procedures US RENAL TRANSPLANT SCAN Daya Saldana MD [address] [place] [address] Referral ID Status Reason Start Date Expiration Date V isits Requested Visits Authorized [id number] New Request 05/16/2022 06/10/2023 1 1 * Consultation (Routine) - New Request Specialty Diagnoses / Procedures Referred By Contac t Referred To Contact Urology Diagnoses FAYE (acute kidney injury) Ryan Hurt MD [address] [place] [address] [address] [place] [address] Referral ID Status Reason Start Date Expiration Date V isits Requested Visits Authorized [id number] New Request 05/16/2022 06/10/2023 1 1 * MRI/CAT Scan (Routine) - New Request Specialty Diagnoses / Procedures Referred By Contac t Referred To Contact Diagnoses FAYE (acute kidney injury) Procedures CT ABDOMEN/PELVIS WITHOUT CONTRAST CHG CT SCAN,ABDOMENT AND PELVIS,W/O CONTRAST Ryan Hurt MD [address] [place] [address] [address] [place] [address] Referral ID Status Reason Start Date Expiration Date V isits Requested Visits Authorized [id number] New Request 05/16/2022 06/10/2023 1 1 * (Routine) - Pending Review Specialty Diagnoses / Procedures Referred By Contac t Referred To Contact Procedures PLATELET MONITORING PER PROTOCOL Daya Saldana MD [address] [place] [address] Referral ID Status Reason Start Date Expiration Date V isits Requested Visits Authorized [id number] Pending Review 05/15/2022 06/09/2023 1 1 * (Routine) - Pending Review Specialty Diagnoses / Procedures Referred By Contac t Referred To Contact Procedures DVT/VTE RISK ASSESSMENT Daya Saldana MD [address] [place] [address] Referral ID Status Reason Start Date Expiration Date V isits Requested Visits Authorized [id number] Pending Review 05/15/2022 06/09/2023 1 1 * (Routine) Specialty Diagnoses / Procedures Referred By Contac t Referred To Contact Evan Bennett MD [address] [place] [address] Referral ID Status Reason Start Date Expiration Date Visits Re quested Visits Authorized * (Routine) Specialty Diagnoses / Procedures Referred By Contac t Referred To Contact Evan Bennett MD [address] [place] [address] Referral ID Status Reason Start Date Expiration Date Visits Re quested Visits Authorized [facility] for referral (narrative)* Consultation (Routine) - New Request Specialty Diagnoses / Procedures Referred By Contac t Referred To Contact Sleep Medicine Diagnoses Kevin Conroy MD [address] [place] [address] Referral ID Status Reason Start Date Expiration Date V isits Requested Visits Authorized [id number] New Request 09/10/2023 10/04/2024 1 1 * MRI/CAT Scan (Routine) - New Request Specialty Diagnoses / Procedures Referred By Contac t Referred To Contact Diagnoses Histoplasmosis Procedures CT CHEST WITHOUT CONTRAST CHG DIAGNOSTIC COMPUTED TOMOGRAPHY THORAX W/O CNTRST Kevin Prince MD [address], [place] [address] Referral ID Status Reason Start Date Expiration Date V isits Requested Visits Authorized [id number] New Request 09/10/2023 10/04/2024 1 1 * Radiology (Routine) - New Request Specialty Diagnoses / Procedures Referred By Contac t Referred To Contact Procedures US RENAL TRANSPLANT SCAN Steve Latham MBBS [address] [place] [phone] Referral ID Status Reason Start Date Expiration Date V isits Requested Visits Authorized [id number] New Request 08/29/2023 09/22/2024 1 1 * (Routine) - New Request Specialty Diagnoses / Procedures Referred By Contac t Referred To Contact Procedures PLATELET MONITORING PER PROTOCOL Steve Latham MBBS [address] [place] [phone] Referral ID Status Reason Start Date Expiration Date V isits Requested Visits Authorized [id number] New Request 08/28/2023 09/21/2024 1 1 * (Routine) - New Request Specialty Diagnoses / Procedures Referred By Contac t Referred To Contact Procedures DVT/VTE RISK ASSESSMENT Steve Latham MBBS [address], [place] [address] Referral ID Status Reason Start Date Expiration Date V isits Requested Visits Authorized [id number] New Request 08/28/2023 09/21/2024 1 1 [facility] Instructions * Patient Instructions - Christin Elizabeth APRN-ROB - 10/19/2018 9:21 AM EST You should take an extra dose of the lactulose as needed so that you are having 3-4 bowel movementsdaily. You should start the chemical dependency counseling as soon as possible. If you have questions, call the transplant social media assistant Fidelina Pierson. in this encounter* Patient Instructions - Sophie Cary, SAMI - 10/12/2018 11:09 AM EST You have been seen in the pre-transplant evaluation clinic by Dr. Restrepo and Sophie Cary. Sophie Cary is your pre-patient placement coordinator she can be reached at [phone] at any time for questions during the pre-transplant process. Your evaluation is complete pendin. Abdominal ultrasound. 2. 6 minute walk test. 3. Cardiology evaluation. Additionally, your cmo & president will recommend testing to screen for coronary artery disease. This will be scheduled for you after your cardiology visit. 4. Your coordinator will be requesting record from your last dental visit, colonoscopy and EGD. 5. Please work to complete social work recommendations. Your social media assistant will be contacting you to follow up on your progress. 6. You have also been referred for a kidney transplant. An appointment will be scheduled for you sari evaluated in the kidney transplant clinic after you have satisfied requirements dictated by your[employer]. Once your testing is complete, we will [...] ___ Other Name MRN * Christin Elizabeth, TAKE UP SUPERVISOR-TOURIST INFORMATION OFFICER - 10/19/2018 9:00 AM EST Formatting of this note may be different from the original. History of Present Illness: Chief Complaint Patient presents with Follow-up Cirrhosis George Styles is a 48 y.o. male who presents to the [facility] today regarding his diagnosis/chief complaint(s) of Cirrhosis secondary to ETOH, with ESRD follows with Dr. Orr. Currently undergoing evaluation for liver/kidney transplant. Has been seen in transplant clinic for eval. Still undergoing pre testing. Diagnosed in April 2018. Last drink was immediately prior to hospital admission in [place] for ACLF. Hospital course notable for ARF [...] kidney transplant evaluation. Pt was AOx3. Transplant Guest Relations Executive role/function was explained and reviewed. The patient was informed that the results of this assessment will be shared with the referring provider and the transplant team. The patient verbalized understanding of this information. The [facility] psychosocial assessment consent form has been explained to patient and has been signed. Pt is completing this evaluation with brother (David) in the Outpatient setting. SWK educated pt on the benefits of completing/filing advanced directives and resources were offered. Pt identifies with HINDUISM gnosticism. Pt confirms being a [place] Citizen. Pt.'s primary language is Dominican. Pt confirms the ability to read,write, and understand Dominican. Pt denies potential donors. Donor cards and [...] has valid license, does not regularly drive (TOURIST INFORMATION OFFICER recommends that he not to drive). He [...] organ related disease etoh cirrohosis April in [facility] for thirty days. Pt reports learning that [...] as well as referred him to pre patient placement coordinator. Pt and support demonstrated moderate understanding [...] Patient's brother David is a self employed commissary clerk. Additional support includes his other brother Tyshawn and his Mary live fifteen minutes away. 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 He confirms being comfortable asking for [...] in 2010, he was employed by the [employer] He has access to SSDI payment (SSDI starts in November) in regards to financial means pre/ post-transplant. Pt confirms (meeting bills currently, ) being able to meet daily needs. Patient's brother asking for additional information on community resources, food stamps and Heap. Refer him to pt.'s dialysis center and the [facility]. Hereports access to Medicaid. Pt. denies history. [...] treatment after a DUI charge [facility] in [place], court ordered treatment in 2001 and in [...] by patient from his primary medical provider- TOURIST INFORMATION OFFICER patient was noted as attending an alcohol [...] new visit Date of service: 10/12/2018 -Referring tool and die machinist for today's consult: -Primary Care Provider: Zuly [...] processes progressing rapidly Unknown * Elisa Tiwari, COOK BOX FILLER - 10/12/2018 10:00 AM EST Timed up and go 9.9 seconds Central Supply Technician Left 52.8 pounds Right 44.9 pounds Waist circ 38.5 inches * Sophie Cary, RN - 10/12/2018 10:00 AM EST Formatting of this note may be different from the original. Patient George Styles ([id number]), accompanied by his brother, was seen on [...] any further questions. Sophie GUERINN, RN Liver Cotton Bag Clipper Etiology: ETOH HCC: No ETOH: Yes Last [...] RUQ/LIVER/GB Yovani Orr MD [address] [address] Status Reason Specialty Diagnoses / Procedures Referred By Contact Referred To Contact New Request Diagnoses Cirrhosis of liver with ascites, unspecified hepatic cirrhosis type Procedures US ABDOMEN RUQ/LIVER/GB Yovani Orr MD [address] [address] Specialty Diagnoses / Procedures Referred By Contac t Referred To Contact Diagnoses FAYE (acute kidney injury) Procedures CT ABDOMEN/PELVIS WITHOUT CONTRAST CHG CT SCAN,ABDOMENT AND PELVIS,W/O CONTRAST Central Scheduling [address] [place] [address] Referral ID Status Reason Start Date Expiration Date V isits Requested Visits Authorized [id number] Pending Review 05/16/2022 06/10/2023 1 1 Specialty Diagnoses / Procedures Referred By Contac t Referred To Contact Diagnoses Other hydronephrosis Procedures [facility] Rayn Hurt MD [address] [facility] [address] [place] [address] Referral ID Status Reason Start Date Expiration Date V isits Requested Visits Authorized [id number] New Request 07/07/2022 08/01/2023 1 1 Specialty Diagnoses / Procedures Referred By Contac t Referred To Contact Procedures DIRECT ADMIT REQUEST Steve Latham MBBS [address] [place] [address] Referral ID Status Reason Start Date Expiration Date V isits Requested Visits Authorized [id number] New Request 08/28/2023 09/21/2024 1 1 Specialty Diagnoses / Procedures Referred By Contac t Referred To Contact Radiology Diagnoses DARLENE (obstructive sleep apnea) Primary hypertension (CMS/HCC) Bilateral lower extremity edema Shortness of breath Procedures Echocardiogram 2D complete Zuly Bruno NP [address] [place] [address] Referral ID Status Reason Start Date Expiration Date Visits Requested Visits Authorized [id number] Incomplete Perform Procedure 01/06/2024 07/04/2024 1 1 Specialty Diagnoses / Procedures Referred By Contac t Referred To Contact Procedures US IMAGING REGIONAL ANESTHESIA Kehinde Gutierrez MD [address] [place] [address] Referral ID Status Reason Start Date Expiration Date V isits Requested Visits Authorized [id number] New Request 01/22/2024 02/15/2025 1 1 Specialty Diagnoses / Procedures Referred By Contac t Referred To Contact Cardiovascular Medicine Diagnoses Heart failure, diastolic, acute Kelvin Pacheco MD, MBBS [address] [place] [address] Referral ID Status Reason Start Date Expiration Date V isits Requested Visits Authorized [id number] New Request 01/20/2024 02/13/2025 1 1 Specialty Diagnoses / Procedures Referred By Contac t Referred To Contact Procedures US ABDOMEN LIVER DOPPLER US ABDOMEN LIVER TRANSPLANT DOPPLER Timothy Joseph MD [address] [facility] [address] [place] [address] Referral ID Status Reason Start Date Expiration Date V isits Requested Visits Authorized [id number] New Request 01/16/2024 02/09/2025 1 1 Specialty Diagnoses / Procedures Referred By Contac t Referred To Contact Procedures DVT/VTE RISK ASSESSMENT Kelvin Pacheco MD, MBBS [address] [place], [place] [id number] Referral ID Status Reason Start Date Expiration Date V isits Requested Visits Authorized [id number] New Request 01/16/2024 02/09/2025 1 1 Specialty Diagnoses / Procedures Referred By Contac t Referred To Contact Procedures PLATELET MONITORING PER PROTOCOL Kelvin Pacheco MD, MBBS [address] [place] [address] Referral ID Status Reason Start Date Expiration Date V isits Requested Visits Authorized [id number] New Request 01/16/2024 02/09/2025 1 1 Referral ID Status Reason Start Date Expiration Date V isits Requested Visits Authorized [id number] New Request 01/16/2024 02/09/2025 1 1 Specialty Diagnoses / Procedures Referred By Contac t Referred To Contact Procedures ECG Kelvin Pacheco MD, MBBS [address] [place] [id number] Referral ID Status Reason Start Date Expiration Date V isits Requested Visits Authorized [id number] New Request 01/16/2024 02/09/2025 1 1 Advance Directives Documents on File Type Date Recorded Patient Wheat Buyer Expl anation Advance Directives and Living Will Power of Secondary School Special Ed Teacher Latest Code Status on File Code Status [...] Yovani Orr MD [address] [address] Status Reason Specialty Diagnoses / Procedures Referre d By Contact Referred To Contact Denied Diagnoses Alcoholic cirrhosis, unspecified whether ascites present Pre-transplant evaluation for liver transplant Procedures MRI ABDOMEN WITH CONTRAST MT MRI, ABDOMEN W/CONTRAST Yovani Orr MD [address] [address] Reason Comments Liver Recipient Evaluation Status Reason Specialty Diagnoses / Procedures Referred By Contact Referred To Contact New Request Transplant / Transplant Surgery Procedures PRE NEW PATIENT Yovani Orr MD [address] [address] Alfredito Restrepo MD [address] [place] [address] Reason Comments Reschedule Reason Comments Outside Medical Records Request Reason Comments Social Work Follow-up Reason Comments Kidney Stone Specialty Diagnoses / Procedures Referred By Deni edwards Referred To Contact Diagnoses Obstructing kidney stone, s/p kidney transplant 2019 Daya Saldana MD [address] [place] [address] [facility] [address] [place] [address] Referral ID Status Reason Start Date Expiration Date Visits Re quested Visits Authorized [id number] 1 1 Reason Comments Follow-up Reason Comments Kidney Recipient Follow-up Liver Recipient Follow-up Reason Comments Consult Reason Comments New Patient Hospital follow up Specialty Diagnoses / Procedures Referred By Deni edwards Referred To Contact Urology Diagnoses hosp fu with [address] prior Procedures NEW TO DOC/RET PATIENT Zuly Bruno, TOURIST INFORMATION OFFICER [address] [place] [address] Ryan Hurt MD [address] [facility] [address] [place] [address] Referral ID Status Reason Start Date Expiration Date Visits Re quested Visits Authorized [id number] Closed 06/27/2022 07/22/2023 1 1 Specialty Diagnoses / Procedures Referred By Contac t Referred To Contact Diagnoses FAYE (acute kidney injury) Procedures CT ABDOMEN/PELVIS WITHOUT CONTRAST CHG CT SCAN,ABDOMENT AND PELVIS,W/O CONTRAST Central Scheduling [address] [place] [address] Referral ID Status Reason Start Date Expiration Date V isits Requested Visits Authorized [id number] Pending Review 05/16/2022 06/10/2023 1 1 Reason Comments Follow-up Specialty Diagnoses / Procedures Referred By Contac t Referred To Contact Urology Diagnoses 1 week fu post NT clamp Procedures RETURN PATIENT Zuly Bruno, TOURIST INFORMATION OFFICER [address] [place] [address] Ryan Hurt MD [address] [facility] [address] [place] [address] Referral ID Status Reason Start Date Expiration Date Visits Requested Visits Authorized [id number] Authorized - 07/07/2022 08/01/2023 2 2 Specialty Diagnoses / Procedures Referred By Contac t Referred To Contact Diagnoses Other hydronephrosis Procedures FLUORO IMAGING FOR UROLOGY Ryan Hurt MD [address] [facility] [address] [place] [address] Referral ID Status Reason Start Date Expiration Date V isits Requested Visits Authorized [id number] New Request 07/07/2022 08/01/2023 1 1 Specialty Diagnoses / Procedures Referred By Contac t Referred To Contact Urology Diagnoses 1 week fu post NT clamp Procedures RETURN PATIENT Zuly Bruno, TOURIST INFORMATION OFFICER [address] [place] [address] Ryan Hurt MD [address] [facility] [address] [place] [address] Referral ID Status Reason Start Date Expiration Date Visits Re quested Visits Authorized [id number] Closed 07/07/2022 08/01/2023 2 2 Reason Comments Liver Recipient Follow-up Reason Comments Kidney Recipient Follow-up Reason Comments Kidney Recipient Follow-up Specialty Diagnoses / Procedures Referred By Contac t Referred To Contact Diagnoses Kidney replaced by transplant Steve Latham MBBS [address] [place] [address] [facility] [address] [place] [address] Referral ID Status Reason Start Date Expiration Date Visits Re quested Visits Authorized [id number] 1 1 Specialty Diagnoses / Procedures Referred By Contac t Referred To Contact Diagnoses Pleural effusion on right PNEUMONIA- HX LIVER AND KIDNEY TRANSPLANT Kevin Prince MD [address] [place] [address] [facility] [address] [place] [address] Referral ID Status Reason Start Date Expiration Date Visits Re quested Visits Authorized [id number] 1 1 Reason Comments New Patient Specialty Diagnoses / Procedures Referred By Contac t Referred To Contact Cardiovascular Medicine Diagnoses Heart failure, diastolic, acute Kelvin Pacheco MD, MBBS [address] [place] [address] Referral ID Status Reason Start Date Expiration Date Visits Requested Visits Authorized [id number] Authorized - 01/20/2024 02/13/2025 5 5 (unrecognized sect ion and content) No Status Records FoundNo Status Records FoundNo Status Records FoundNo Status Records FoundNo Status Records FoundNo Status Records Found INFORMATION SOURCE (unrecogn ized section and content) DATE CREATED AUTHOR 01/07/2020 [facility] DATE CREATED AUTHOR AUTHOR'S ORGANIZ ATION 01/27/2021 [facility] DATE CREATED AUTHOR AUTHOR'S ORGANIZ ATION 04/13/2023 [facility] DATE CREATED AUTHOR AUTHOR'S ORGANIZ ATION 05/11/2023 [facility] DATE CREATED AUTHOR AUTHOR'S ORGANIZ ATION 03/25/2024 [facility] EPIC DATE CREATED AUTHOR AUTHOR'S ORGANIZ ATION 03/29/2024 [facility] Care Teams (unrecognized sec tion and content) Customer Field Representative Relationship Specialty Start Date End Date Zuly Bruno CNP PCP - General 07/19/18 Comfort Rivera, [facility] [address] [facility] [address] [place] [id number] Pharmacist Pharmacist 05/16/20 Angel Carpio RP,PharmD Pharmacist Pharmacist 05/16/20 Te Leigh RP,PharmD Pharmacist Pharmacist 01/09/21 Customer Field Representative Relationship Specialty Start Date End Date Zuly Bruno CNP PCP - General 07/19/18 Comfort Rivera, [facility] [address] [facility] [address] [place] [address] Pharmacist Pharmacist 05/16/20 Angel Carpio RP,PharmD Pharmacist Pharmacist 05/16/20 Te Leigh [facility],PharmD Pharmacist Pharmacist 01/09/21 Customer Field Representative Relationship Specialty Start Date End Date Zuly Bruno CNP PCP - General 07/19/18 Customer Field Representative Relationship Specialty Start Date End Date Zuly Bruno CNP PCP - General 07/19/18 Customer Field Representative Relationship Specialty Start Date End Date Zuly Bruno CNP PCP - General 07/19/18 Customer Field Representative Relationship Specialty Start Date End Date Zuly Bruno CNP PCP - General 07/19/18 Customer Field Representative Relationship Specialty Start Date End Date Zuly Bruno CNP PCP - General 07/19/18 Customer Field Representative Relationship Specialty Start Date End Date Zuly Bruno CNP PCP - General 07/19/18 Customer Field Representative Relationship Specialty Start Date End Date Zuly Bruno CNP PCP - General 07/19/18 Customer Field Representative Relationship Specialty Start Date End Date Zuly Bruno CNP PCP - General 07/19/18 Customer Field Representative Relationship Specialty Start Date End Date Zuly Bruno CNP PCP - General 07/19/18 Customer Field Representative Relationship Specialty Start Date End Date Zuly Bruno CNP PCP - General 07/19/18 Customer Field Representative Relationship Specialty Start Date End Date Zuly Bruno CNP PCP - General 07/19/18 Customer Field Representative Relationship Specialty Start Date End Date Zuly Bruno CNP PCP - General 07/19/18 Customer Field Representative Relationship Specialty Start Date End Date Zuly Bruno CNP PCP - General 07/19/18 Customer Field Representative Relationship Specialty Start Date End Date Zuly Bruno CNP PCP - General 07/19/18 Customer Field Representative Relationship Specialty Start Date End Date KristopherlydialatishaZuly tipton CNP PCP - General 07/19/18 Evan White DO [address] [place] [address] Infectious Disease Infectious Disease 09/09/23 Customer Field Representative Relationship Specialty Start Date End Date Zuly Bruno CNP PCP - General 07/19/18 Evan White DO [address] [place] [address] Infectious Disease Infectious Disease 09/09/23 Customer Field Representative Relationship Specialty Start Date End Date Zuly Bruno CNP PCP - General 07/19/18 Evan White DO [address] [place] [address] Infectious Disease Infectious Disease 09/09/23 Customer Field Representative Relationship Specialty Start Date End Date Momo Verdugo MD PCP - General Family Medicine 05/21/23 Customer Field Representative Relationship Specialty Start Date End Date Momo Verdugo MD PCP - General Family Medicine 05/21/23 Customer Field Representative Relationship Specialty Start Date End Date Momo Verdugo MD PCP - General Family Medicine 05/21/23 Customer Field Representative Relationship Specialty Start Date End Date Zuly Bruno CNP PCP - General 07/19/18 Evan White DO [facility] [place] [address] Infectious Disease Infectious Disease 09/09/23 Customer Field Representative Relationship Specialty Start Date End Date Zuly Bruno CNP PCP - General 07/19/18 Evan White DO [facility] [place] [address] Infectious Disease Infectious Disease 09/09/23 Customer Field Representative Relationship Specialty Start Date End Date Zuly Bruno CNP PCP - General 07/19/18 Evan White DO [facility] [place] [address] Infectious Disease Infectious Disease 09/09/23 Customer Field Representative Relationship Specialty Start Date End Date Zuly Bruno CNP PCP - General 07/19/18 Evan White DO [address] [place] [address] Infectious Disease Infectious Disease 09/09/23 Customer Field Representative Relationship Specialty Start Date End Date Zuly Bruno CNP PCP - General 07/19/18 Evan White DO [address] [place] [address] Infectious Disease Infectious Disease 09/09/23 Customer Field Representative Relationship Specialty Start Date End Date Zuly Bruno CNP PCP - General 07/19/18 Customer Field Representative Relationship Specialty Start Date End Date Zuly [...] MD)0959 (Unheld by provider - Provider: Nishant Gmaez MD)1999 (Given - Provider: Carolyn Isaac RN) [...] Discontinued 08 (Not Given - Provider: Aixa Holedn RN - Reason: Patient/family refused)145 (Not Given [...] - Reason: Transfer to a Procedural area)141 ([facility] Unhold - Provider: Automatic Transfer)2008 (Given [...] 0842 (Given - Provider: Terra Heart RN)105 ([facility] Hold - Provider: Automatic Transfer - Reason: Transfer to a Procedural area)141 ([facility] Unhold - Provider: Automatic Transfer)2008 (Given [...] - Reason: Transfer to a Procedural area)1413 ([facility] Unhold - Provider: Automatic Transfer) tacrolimus [...] - Reason: Transfer to a Procedural area)1413 ([facility] Unhold - Provider: Automatic Transfer) 922 (Given - Provider: Terra Heart RN) Tamsulosin HCl (FLOMAX) capsule 0.4 mg 0.4 mg, Oral, DAILY, First dose on Thu01/16/24 at 0900, Until Discontinued, Slow release product. Do not chew or crush 841 (Given - Provider: Erica Gudino RN) 08 (Given - Provider: Terra Heart RN)105 ([facility] Hold - Provider: Automatic Transfer - Reason: Transfer to a Procedural area)141 ([facility] Unhold - Provider: Automatic Transfer) 09 (Given [...] 0841 (Given - Provider: Terra Heart RN)1053 ([facility] Hold - Provider: Automatic Transfer - Reason: Transfer to a Procedural area)1414 ([facility] Unhold - Provider: Automatic Transfer) 0920 [...] from all sources in 24 hours. 1053 ([facility] Hold - Provider: Automatic Transfer - Reason: Transfer to a Procedural area)1414 ([facility] Unhold - Provider: Automatic Transfer)1806 (Given [...] 200-200 mg and Simethicone 20 mg) 1053 ([facility] Hold - Provider: Automatic Transfer - Reason: Transfer to a Procedural area)1414 ([facility] Unhold - Provider: Automatic Transfer) guaiFENesin (ROBITUSSIN) oral solution 400 mg 400 mg, Oral, EVERY 6 HOURS NEEDED, Starting on 01/16/24 at 0202, Until 01/23/24 at 1752, Cough, Congestion 1053 ([facility] Hold - Provider: Automatic Transfer - Reason: Transfer to a Procedural area)1414 ([facility] Unhold - Provider: Automatic Transfer) HYDROmorphone [...] - Reason: Transfer to a Procedural area)1414 ([facility] Unhold - Provider: Automatic Transfer)2355 (Given - Provider: Tati Ahmadi RN) Ondansetron (ZOFRAN) tablet 4 mg(Linked Group 1) 4 mg, Oral, EVERY 6 HOURS NEEDED, Starting on 01/16/24 at 0202, Until 01/23/24 at 1752, Nausea / Vomiting, 1st line for Nausea/Vomiting 1053 ([facility] Hold - Provider: Automatic Transfer - Reason: Transfer to a Procedural area)1414 ([facility] Unhold - Provider: Automatic Transfer)1809 (See [...] - Reason: Transfer to a Procedural area)1414 ([facility] Unhold - Provider: Automatic Transfer)1809 (Given [...] 01/23/24 at 1752, Constipation 1st Line 1053 ([facility] Hold - Provider: Automatic Transfer - Reason: Transfer to a Procedural area)1414 ([facility] Unhold - Provider: Automatic Transfer) Prochlorperazine (COMPAZINE) injection 10 mg 10 mg, Intravenous, EVERY 6 HOURS NEEDED, Starting on 01/17/24 at 1538, Until 01/23/24 at 1752, Nausea / Vomiting, Refractory Nausea Vomiting, For IV route: dilute dose with 10mL normal saline and give by slow IV push at a rate of 5mg/min. Maximum of 40mg/day. 1053 ([facility] Hold - Provider: Automatic Transfer - Reason: Transfer to a Procedural area)1414 ([facility] Unhold - Provider: Automatic Transfer)2349 (Given [...] the intermittent or piggy back medication. 1053 ([facility] Hold - Provider: Automatic Transfer - [...] BE BASED ON THE PRIMARY CLINICAL RECORDS. [facility]. provides no warranty or guarantee of the accuracy or completeness of information in this document.
[2024-04-11 07:24] LABS: Basophils Percent Auto 0.6 % (0.2-2.0); Eosinophils Absolute Auto 0.1 10^3/uL (0.0-0.7); Eosinophils Percent Auto 2.3 % (0.9-7.0); Hematocrit 43.2 % (42.0-54.0); Hemoglobin 14.1 g/dL (14.0-18.0); Immature Granulocytes Abs Auto 0.01 10^3/uL (0.00-0.03); Immature Granulocytes Pct Auto 0.2 % (0.0-0.5); Lymphocytes Absolute Auto 1.4 10^3/uL (1.2-3.8); Lymphocytes Percent Auto 27.6 % (20.5-60.0); Mean Corpuscular HGB Conc 32.6 g/dL (29.9-35.2); Mean Corpuscular Hemoglobin 29.3 pg (25.9-34.0); Mean Corpuscular Volume 89.6 fL (80.0-94.0); Mean Platelet Volume 10.2 fL (9.5-13.5); Monocytes Absolute Auto 0.5 10^3/uL (0.3-0.8); Neutrophils Absolute Auto 3.1 10^3/uL (1.4-6.5); Neutrophils Percent Auto 60.3 % (43.0-75.0); Platelet Count 213 10^3/uL (150-450); Red Blood Count 4.82 10^6/uL (4.70-6.10); White Blood Count 5.2 10^3/uL (4.0-11.0)
[2024-04-11 09:08] LABS: Creatinine Urine Random 102.82 mg/dL (20.00-300.00); Protein Creatinine Ratio Urine 0.16; Total Protein Urine Random 16.7 mg/dL (<=11.9)
[2024-04-11 09:20] LABS: Alanine Aminotransferase 21 U/L (16-63); Albumin Level 3.9 g/dL (3.4-5.0); Alkaline Phosphatase 126 U/L (46-116); Anion Gap 11.1; Aspartate Amino Transferase 25 U/L (15-37); BUN Creatinine Ratio 16.5; Bilirubin Direct 0.2 mg/dL (0.0-0.2); Bilirubin Total 1.1 mg/dL (0.2-1.0); Carbon Dioxide 28.2 mmol/L (21.0-32.0); Chloride 106 mmol/L (98-107); Estimated GFR (African America >60 (>=60); Estimated GFR (Non-African Ame >60 (>=60); Gamma Glutamyl Transpeptidase 20 U/L (15-85); Glucose 109 mg/dL (74-106); Magnesium 2.3 mg/dL (1.8-2.4); Potassium 4.3 mmol/L (3.5-5.1); Sodium 141 mmol/L (136-145)
== END 2024-04-11 06:49 | disposition home or self-care (01) ==
LOC: LAB 06:49
PROVIDERS: PCP Nurse Practitioner
DX: R79.9 Abnormal finding of blood chemistry, unspecified (principal); Z94.0 Kidney transplant status; Z94.4 Liver transplant status; Z48.298 Encounter for aftercare following other organ transplant
CPT/HCPCS: 36415; 80048; 80197; 82042; 82247; 82248; 82570; 82977; 83735; 84075; 84100; 84156; 84450; 84460; 85025

== ENCOUNTER 2024-04-18 06:39 | Outpatient (OUT) | payer MEDICARE, MEDICAID, SELFPAY ==
--- OUTSIDE RECORDS SUMMARY | 2024-04-18 06:47 | XMS_ITS | CCD ---
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 Name Role Phone Kiana Zuly Unavailable [...] Unavailable AICHHOLZ, ZULY Primary Care Unavailable Aichholz [facility], [facility] Primary Care Provider Miguel [facility] Un[facility] Shirin [facility],PharmD, Angel Unavailable Unavailab makayla Leigh [facility],PharmD, Te Unavailable Unavai lable Aicholz [facility], [facility] Primary Care Provider [phone] MIGUEL CARDONA Attending Unavailable MISC, DR BURCH Admitting Unavailable MISC, DR BURCH Consulting Unavailable AICHHOLZ, DATA SYSTEMS MANAGER ZULY Primary Care Unavailable MISC, DR BURCH Attending Unavailable MISC, DR BURCH Admitting Unavailable MISC, DR BURCH Consulting Unavailable AICHHOLZ, DATA SYSTEMS MANAGER ZULY Primary Care Unavailable MISC, DR BURCH Attending Unavailable ARCELIA PIZARRO Consulting Unavailable KE BURNHAM Attending Unavailable KE BURNHAM Admitting Unavailable BARBARA, DR MÓNICA Munoz Consulting Unavailable AICHHOLZ, DATA SYSTEMS MANAGER ZULY Primary Care Unavailable KE BURNHAM Consulting Unavailable MISC, DR BURCH Consulting Unavailable MISC, DR BURCH Attending Unavailable AICHHOLZ, DATA SYSTEMS MANAGER ZULY Primary Care Unavailable MISC, DR BURCH Admitting Unavailable MISC, DR DOCTOR Consulting Unavailable MISC, DR DOCTOR Attending Unavailable AICHHOLZ, DATA SYSTEMS MANAGER ZULY Primary Care Unavailable MISC, DOCTOR Admitting Unavailable MISC, DR DOCTOR Consulting Unavailable AICHHOLZ, DATA SYSTEMS MANAGER ZULY Primary Care Unavailable MISC, DR DOCTOR Admitting Unavailable MISC, DR DOCTOR Attending Unavailable MELINDA, DR GEORGE Munoz Consulting Unavailable MELINDA, DR GEORGE Munoz Attending Unavailable AICHHOLZ, DATA SYSTEMS MANAGER ZULY Primary Care Unavailable MELINDA, DR GEORGE Munoz Admitting Unavailable NAUN ., KE Consulting Unavailable MIRANDA, LYNDSAY Consulting Unavailable MELINDA, DR GEORGE Munoz Consulting Unavailable NAUN ., KE Attending Unavailable NAUN ., KE Admitting Unavailable AICHHOLZ, DATA SYSTEMS MANAGER ZULY Primary Care Unavailable NAUN ., KE Consulting Unavailable GIAN HERRING Consulting Unavailable AICHHOLZ, DATA SYSTEMS MANAGER ZULY Consulting Unavailable AICHHOLZ, DATA SYSTEMS MANAGER ZULY Attending Unavailable AICHHOLZ, DATA SYSTEMS MANAGER ZULY Admitting Unavailable AICHHOLZ, DATA SYSTEMS MANAGER ZULY Primary Care Unavailable MISC, DR DOCTOR Consulting Unavailable MISC, DOCTOR Admitting Unavailable MISC, DR DOCTOR Attending Unavailable AICHHOLZ, DATA SYSTEMS MANAGER ZULY Primary Care Unavailable MISC, DR DOCTOR Consulting Unavailable MISC, DR DOCTOR Attending Unavailable MISC, DR DOCTOR Admitting Unavailable AICHHOLZ, DATA SYSTEMS MANAGER ZULY Primary Care Unavailable MISC, DOCTOR Admitting Unavailable MISC, DR DOCTOR Consulting Unavailable MISC, DR DOCTOR Attending Unavailable AICHHOLZ, DATA SYSTEMS MANAGER ZULY Primary Care Unavailable MISC, DR DOCTOR Admitting Unavailable MISC, DR DOCTOR Consulting Unavailable AICHHOLZ, DATA SYSTEMS MANAGER ZULY Primary Care Unavailable MISC, DR DOCTOR Attending Unavailable MISC, DR DOCTOR Admitting Unavailable MISC, DR DOCTOR Consulting Unavailable AICHHOLZ, DATA SYSTEMS MANAGER ZULY Primary Care Unavailable MISC, DR DOCTOR Attending Unavailable AICHHOLZ, DATA SYSTEMS MANAGER ZULY Consulting Unavailable AICHHOLZ, DATA SYSTEMS MANAGER ZULY Attending Unavailable AICHHOLZ, DATA SYSTEMS MANAGER ZULY Admitting Unavailable AICHHOLZ, DATA SYSTEMS MANAGER ZULY Primary Care Unavailable DR MÓNICA JIMENEZ Consulting Unavailable Aichholz [facility], Zuly Primary Care Provider Tran White DOs Tray Unavailable Aichholz [facility], Zuly Primary Care Provider Tran White DOs A Unavailable [phone] Momo Verdugo MD Primary Care Provider AICHHOLZ, [...] Referring Unavailable AICHHOLZ, ZULY Attending Unavailable Aichholz DATA SYSTEMS MANAGER, Zuly Primary Care Provider AICHHOLZ, ZULY Primary Care Unavailable HAKEEM ALAMO Attending Unavailable SELF, SELF Referring Unavailable AICHHOLZ, ZULY Primary Care Unavailable AICHHOLZ, ZULY Primary Care Unavailable AICHHOLZ, ZULY Primary Care Unavailable AICHHOLZ, ZULY Primary Care Unavailable SELF, SELF Referring Unavailable REBECA OLSEN Attending Unavailable AICHHOLZ, ZULY Primary Care Unavailable [...] Propensity to adverse reactions (disorder) 8 [facility] Rep[facility] (20 sources) Shellfish-Derive d Products Propensity to adverse reactions to drug 9 [facility] (1 source) Shellfish Drug allergy (disorder) [facility] Medications Current Medications Medication Drug [...] Start: 12-30-2021 take 2 tablets by mo [facility] once daily allopurinol 100 [...] 1 capsule by mouth once daily b izqnavh-K-tsfun acid (NEPHROCAPS) 1 MG capsule Take 1 [...] ankle pain. 0 06/12/2020 06/12/2023 Discontinued lactulose 14169 mg powder for oral solution (19 sources) [...] itraconazole Fax results to: Dr. White - [phone] Transplant Neph - [phone] Each 09/10/2023 01/19/2024 Discontinued (Medication Reconciliation (suppress cancel msg)) Start: 09-10-2023 CUSTOM MEDICAT ION Labs to be obtained: 1- Tacrolimus level, trough - collect twice weekly until 09/24/23, then weekly until 10/08/23, them once every two weeks there after. 2- Itraconazole level - obtain once between 09/14-09/18. 3- Chem 6 - Obtain weekly while on itraconazole Fax results to: Dr. White - [phone] Transplant Neph - [phone] Each 0 09/10/2023 Active Diatrizoate (1 [...] 01/16/2023 Discontinued take 2 tablets by mo [facility] in the morning magnesium oxide (Mag-Ox) 400 MG tablet Take 2 tablets by mouth in the morning. 0 Active [facility] magnesium oxide (MAG-OX) 400 [...] (ROXICODONE) tablet 10 mg polyethylene glycol 3350 71755 mg powder for oral solution (20 sources) [...] rate of 5mg/min. Maximum of 40mg/day. sennosides, snf 8.6 mg oral tablet (1 [...] Coronary arteriosclerosis; Translations: [Atherosclerotic heart disease of [place] coronary artery without angina pectoris] Onset: 3 [...] sources) Taking high risk medication; Translations: [Other senior living (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] Episodic Other and ill-defined [...] source) Hypoxia; Translations: [Hypoxemia] 09-10-2023 Episodic Other nervous system disorders (3 sources) [...] specified body structures] Onset: 3 09-02-2023 Chronic Peripheral and visceral atherosclerosis (1 source) Atherosclerosis [...] 05-10-2020 Episodic Other aftercare (2 sources) Other senior living (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; Translations: [OTH [facility] 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 THERAPY] Onset: 07-06-2022 Episodic Other aftercare (1 source) 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; Translations: [BRUSH SANDER CURRENT USE OF ASPIRIN] Onset: 06-20-2022 Episodic [...] 04-09-2020 04-09-2020 Episodic Other lower respiratory disease (5 sources) Dyspnea; Translations: [Shortness of breath] Onset: 01-06-2024 01-06-2024 Episodic Other lower respiratory disease (1 source) Shortness of breath; Translations: [Shortness of breath] Onset: 01-16-2024 Episodic Other lower respiratory disease (1 source) Hypoxemia; Translations: [Hypoxemia] Onset: 08-28-2023 Episodic Other lower respiratory disease (1 source) Hypoxemia; Translations: [Hypoxemia] Onset: 08-28-2023 Episodic Other screening for suspected conditions (not mental disorders or infectious disease) (20 sources) Abnormal quantity of physiologic substance; Translations: [Blood chemistry abnormal] Onset: 06-22-2018 06-22-2018 Episodic Residual codes; unclassified (1 source) Ill-defined [...] transplant] Onset: 08-28-2023 Unclassified (1 source) Other senior living (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; 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 (DEFAULT)[address] [place] [address] Interpretation and review of laboratory results Normal [facility] Natriuretic peptide B (Bld) [Mass/Vol] 72 pg/mL 0 - 100 pg/mL [facility] CHEM 6 (LYTES, BUN CREA)on 0 02-26-2024 Anion gap [Moles/Vol] 13 mmol/L Normal 7-17 [facility] Comment on above: Performed By: #### C HM6 ####[facility] (DEFAULT)[address] [place] [address] Chloride [Moles/Vol] 107 mmol/L Normal 98-108 [facility] Comment on above: Performed By: #### C HM6 ####[facility] (DEFAULT)[address] [place] [address] CO2 [Moles/Vol] 25 mmol/L Normal 21-31 [facility] Comment on above: Performed By: #### C HM6 ####[facility] (DEFAULT)[address] [facility] [place] [address] Creatinine [Mass/Vol] 1.23 mg/dL Normal 0.70-1.30 [facility] Comment on above: Performed By: #### C HM6 ####[facility] (DEFAULT)[address] [place] [address], [place] [address] GFR/1.73 sq M.predicted among non-blacks MDRD (S/P/Bld) [Vol rate/Area] 70 mL/min/{1.73_m2} Normal >=60 [facility] Comment on above: Result Comment: Repo rted eGFR is based on the CKD-EPI 2020 equation using creatinine, age, and sex. Performed By: #### C HM6 ####[facility] (DEFAULT)[address] [facility] [place] [address] Potassium [Moles/Vol] 4.2 mmol/L Normal 3.5-5.0 [facility] Comment on above: Performed By: #### C HM6 ####[facility] (DEFAULT)[address] [facility] [place] [address] Sodium [Moles/Vol] 141 mmol/L Normal 135-145 [facility] Comment on above: Performed By: #### C HM6 ####[facility] (DEFAULT)[address] [facility] [place] [address] Urea nitrogen [Mass/Vol] 17 mg/dL Normal 7-25 [facility] Comment on above: Performed By: #### C HM6 ####[facility] (DEFAULT)[address] [place] [address] Urea nitrogen/Creatinine [Mass ratio] 14 mg/mg Normal [facility] Comment on above: Performed By: #### C HM6 ####[facility] (DEFAULT)[address] [place] [address] Anion gap [Moles/Vol] 13 mmol/L 7 - 17 mmol/L [facility] Chloride [Moles/Vol] 107 mmol/L 98 - 10 8 mmol/L [facility] CO2 [Moles/Vol] 25 mmol/L 21 - 31 mmol/L [facility] Creatinine [Mass/Vol] 1.23 mg/dL 0.70 - 1.30 mg/dL [facility] eGFR, CKD-EPI, Male 70 - PINF [facility] Comment on above: Reported eGFR is bas ed on the CKD-EPI 2020 equation using creatinine, age, and sex. Potassium [Moles/Vol] 4.2 mmol/L 3.5 - 5.0 mmol/L [facility] Sodium [Moles/Vol] 141 mmol/L 135 - 145 mmol/L [facility] Urea nitrogen [Mass/Vol] 17 mg/dL 7 - 25 mg/dL [facility] Urea nitrogen/Creatinine [Mass ratio] 14 mg/mg [facility] CBC,PLATELETSon 01-23-2024 Hematocrit (Bld) [Volume fraction] 37.0 % Low 39.6-48.8 [facility] Comment on above: Performed By: #### [facility] ####[facility] (DEFAULT)[address] [place] [address] Hemoglobin (Bld) [Mass/Vol] 12.0 g/dL Low 13.4-16.8 [facility] Comment on above: Performed By: #### [facility] ####[facility] (DEFAULT)[address] [place] [address] MCV (RBC) [Entitic vol] 88.1 fL Normal 79.0-94.5 [facility] Comment on above: Performed By: #### H EMOGC ####[facility] (DEFAULT)[address] [place] [address] Mean Cell Hgb 28.6 pg Normal 26.1-33.3 [facility] Comment on above: Performed By: #### H EMOGC ####[facility] (DEFAULT)[address] [facility] [place] [address] Mean Cell Hgb Conc 32.4 g/dL Normal 31.9-36.5 [facility] Comment on above: Performed By: #### H EMOGC ####[facility] (DEFAULT)[address] [facility] [place] [address] Platelet mean volume (Bld) [Entitic vol] 10.4 fL Normal 8.7-12.3 [facility] Comment on above: Performed By: #### H EMOGC ####[facility] (DEFAULT)[address] [place] [address] Platelets (Bld) [#/Vol] 170 10*3/uL Normal 146-337 [facility] Comment on above: Performed By: #### H EMOGC ####[facility] (DEFAULT)[address] [facility] [place] [address] RBC (Bld) [#/Vol] 4.20 10*6/uL Low 4.38-5.83 [facility] Comment on above: Performed By: #### H EMOGC ####[facility] (DEFAULT)[address] [place] [address] RBC Distribution 14.2 % Normal 10.9-14.3 [facility] Comment on above: Performed By: #### H EMOGC ####[facility] (DEFAULT)[address] [place] [address] WBC (Bld) [#/Vol] 3.70 10*3/uL Low 3.73-10.10 [facility] Comment on above: Performed By: #### H [facility] ####[facility] (DEFAULT)[address] [place] [address] Erythrocyte distribution width (RBC) [Ratio] 14.2 % 10.9 - 14.3 % [facility] Hematocrit (Bld) [Volume fraction] 37.0 % Low 39.6 - 48.8 % [facility] Hemoglobin (Bld) [Mass/Vol] 12.0 g/dL Low 13.4 - 16.8 g/dL [facility] Interpretation and review of laboratory results Abnormal [facility] MCH (RBC) [Entitic mass] 28.6 pg 26.1 - 33.[address] [facility] MCHC (RBC) [Mass/Vol] 32.4 g/dL 31.9 - 36.5 g/dL [facility] MCV (RBC) [Entitic vol] 88.1 fL 79.0 - 94.[address] [facility] Platelet mean volume (Bld) [Entitic vol] 10.4 fL 8.7 - 12.[address] [facility] Platelets (Bld) [#/Vol] 170 10*3/uL 146 - 337 K/uL [facility] RBC (Bld) [#/Vol] 4.20 10*6/uL Low [facility] WBC (Bld) [#/Vol] 3.70 10*3/uL Low 3.73 - 10. 10 K/uL [facility] CHEM 7 (LYTES,BUN,CREA,GLUC) on 01-23-2024 Anion gap [Moles/Vol] 14 mmol/L Normal 7-17 [facility] Comment on above: Performed By: #### M GO, CHM7, [facility] ####[facility] (DEFAULT)[address] [place] [address] Chloride [Moles/Vol] 105 mmol/L Normal 98-108 [facility] Comment on above: Performed By: #### NATHANIEL RAMÍREZ, HFP ####[facility] (DEFAULT)[address] [place] [address] CO2 [Moles/Vol] 25 mmol/L Normal 21-31 [facility] Comment on above: Performed By: #### NATHANIEL RAMÍREZ, HFP ####[facility] (DEFAULT)[address] [facility] [place] [address] Creatinine [Mass/Vol] 1.32 mg/dL High 0.70-1.30 [facility] Comment on above: Performed By: #### NATHANIEL RAMÍREZ, HFP ####[facility] (DEFAULT)[address] [facility] [place] [address] GFR/1.73 sq M.predicted among non-blacks MDRD (S/P/Bld) [Vol rate/Area] 65 mL/min/{1.73_m2} Normal >=60 [facility] Comment on above: Result Comment: Repo rted eGFR is based on the CKD-EPI 2020 equation using creatinine, age, and sex. Performed By: #### NATHANIEL RAMÍREZ, HFP ####[facility] (DEFAULT)[address] [facility] [place] [address] Glucose [Mass/Vol] 94 mg/dL Normal 70-99 [facility] Comment on above: Performed By: #### NATHANIEL RAMÍREZ, HFP ####[facility] (DEFAULT)[address] [facility] [place] [address] Osmolality [Osmolality] 296 mosm/kg Normal 278-305 [facility] Comment on above: Performed By: #### NATHANIEL RAMÍREZ, HFP ####[facility] (DEFAULT)[address] [facility] [place] [address] Potassium [Moles/Vol] 3.8 mmol/L Normal 3.5-5.0 [facility] Comment on above: Performed By: #### M TJ BLOOM7, HFP ####[facility] (DEFAULT)[address] [facility] [place] [address] Sodium [Moles/Vol] 140 mmol/L Normal 135-145 [facility] Comment on above: Performed By: #### Rod BLOOM CHM7, HFP ####[facility] (DEFAULT)[address] [place] [address] Urea nitrogen [Mass/Vol] 23 mg/dL Normal 7-25 [facility] Comment on above: Performed By: #### M NATHANIEL BLOOM, HFP ####[facility] (DEFAULT)[address] [place] [address] Urea nitrogen/Creatinine [Mass ratio] 17 mg/mg Normal [facility] Comment on above: Performed By: #### NATHANIEL RAMÍREZ, HFP ####[facility] (DEFAULT)[address] [place] [address] Anion gap [Moles/Vol] 14 mmol/L 7 - 17 mmol/L [facility] Chloride [Moles/Vol] 105 mmol/L 98 - 10 8 mmol/L [facility] CO2 [Moles/Vol] 25 mmol/L 21 - 31 mmol/L [facility] Creatinine [Mass/Vol] 1.32 mg/dL High 0.70 - 1.30 mg/dL [facility] eGFR, CKD-EPI, Male 65 - PINF [facility] Comment on above: Reported eGFR is bas ed on the CKD-EPI 2020 equation using creatinine, age, and sex. Glucose [Mass/Vol] 94 mg/dL 70 - 99 mg/dL [facility] Osmolality Calc [Osmolality] 296 [facility] Potassium [Moles/Vol] 3.8 mmol/L 3.5 - 5.0 mmol/L [facility] Sodium [Moles/Vol] 140 mmol/L 135 - 145 mmol/L [facility] Urea nitrogen [Mass/Vol] 23 mg/dL 7 - 25 mg/dL [facility] Urea nitrogen/Creatinine [Mass ratio] 17 mg/mg [facility] GLUCOSE POCon 01-23-2024 Glucose [Mass/Vol] 88 mg/dL 70 - 99 mg/dL [facility] POC Sample Type CAPBL [facility] Test performed at ad dress of the patient encounter. [facility] Glucose [Mass/Vol] 191 mg/dL High 70 - 99 mg/dL [facility] Interpretation and review of laboratory results Abnormal [facility] POC Sample Type CAPBL [facility] Test performed at ad dress of the patient encounter. [facility] HEPATIC FUNCTION PANELon Albumin [Mass/Vol] 3.9 g/dL Normal 3.5-5.0 [facility] Comment on above: Performed By: #### NATHANIEL RAMÍREZ, HFP ####[facility] (DEFAULT)[address] [place] [address] ALP [Catalytic activity/Vol] 83 U/L Normal 32-126 [facility] Comment on above: Performed By: #### NATHANIEL RAMÍREZ, HFP ####[facility] (DEFAULT)[address] [facility] [address] ALT [Catalytic activity/Vol] 9 U/L Low 10-52 [facility] Comment on above: Performed By: #### NATHANIEL RAMÍREZ, HFP ####[facility] (DEFAULT)[address] [place] [address] AST [Catalytic activity/Vol] 17 U/L Normal 10-39 [facility] Comment on above: Performed By: #### NATHANIEL RAMÍREZ, HFP ####[facility] (DEFAULT)[address] [place] [address] Bilirubin [Mass/Vol] 1.6 mg/dL High <1.5 [facility] Comment on above: Performed By: #### M NATHANIEL BLOOM, HFP ####[facility] (DEFAULT)[address] [place] [address] Bilirubin.indirect [Mass/Vol] 0.4 mg/dL High <0.3 [facility] Comment on above: Performed By: #### M NATHANIEL BLOOM, HFP ####[facility] (DEFAULT)[address] [facility] [place] [address] Protein [Mass/Vol] 6.6 g/dL Normal 6.4-8.3 [facility] Comment on above: Performed By: #### M NATHANIEL BLOOM, HFP ####[facility] (DEFAULT)[address] [facility] [place] [address] Albumin [Mass/Vol] 3.9 g/dL 3.5 - 5.0 g/dL [facility] ALP [Catalytic activity/Vol] 83 U/L 32 - 126 U/L [facility] ALT [Catalytic activity/Vol] 9 U/L Low 10 - 52 U/L [facility] AST [Catalytic activity/Vol] 17 U/L 10 - 39 U/L [facility] Bilirubin [Mass/Vol] 1.6 mg/dL High NINF - 1.5 mg/dL [facility] Bilirubin.direct [Mass/Vol] 0.4 mg/dL High NINF - 0.3 mg/dL [facility] Protein [Mass/Vol] 6.6 g/dL 6.4 - 8.3 g/dL [facility] ITRACONAZOLE LEVELon 01-23- 024 Hydroxyitraconazole [Mass/Vol] 7.6 mcg/mL [facility] Comment on above: REFERENCE VALUE No therapeutic range established; activity and serum concentration are similar to parent drug. ADDITIONAL INFORMATION This test was developed and its performance characteristics determined by [facility] in a manner consistent with CLIA requirements. This test has not been cleared or approved by the U.S. Food and Drug Administration. Test Performed by: [facility] [address] [place] [address] Yoga Teacher: Rosendo Bose M.D. Ph.D.; CLIA# [id number] Itraconazole [Mass/Vol] 6.0 mcg/mL [facility] Comment on above: REFERENCE VALUE >0.5 (localized infection), >1.0 (systemic infection) [facility] MAGNESIUMon 01-23-2024 Magnesium [Mass/Vol] 1.8 mg/dL Normal 1.6-2.6 [facility] Comment on above: Performed By: #### M , M7, [facility] ####[facility] (DEFAULT)[address] [place] [address] Interpretation and review of laboratory results Normal [facility] Magnesium [Mass/Vol] 1.8 mg/dL 1.6 - 2 .6 mg/dL [facility] No Panel Informationon 01-23 Interpretation and review of laboratory results Abnormal [facility] TACROLIMUS LEVEL, TROUGH (ND E DRUG LEVEL)on 01-23-2024 Interpretation and review of laboratory results Normal [facility] Tacrolimus (Bld) [Mass/Vol] 7.0 ng/mL Bone Marrow Transplant: 4.0-12.0, Therapeutic: 5.0-15.0 [facility] Method performed is a chemiluminescent microparticle immunoasssay on the [employer] Spr[employer] Gun Repairer Helper i2000. The range is based on experience at [facility] and users should be aware that target concentrations vary widely depending on concomitant therapy, time post-transplant, and desired degree of immunosuppression. [facility] Tacrolimus, Trough 7.0 ng/mL Normal Bone Susana ow Transplant: 4.0-12.0, Therapeutic: 5.0-15.0 [facility] Comment on above: Order Comment: Dilan gregory draw at specified interval PRIOR to dose. Do not hold dose to wait for level. Specimens batched twice per day, (M-F) and once per day weekendsMethod performed is a chemiluminescent microparticle immunoasssay on the [place] Spray Gun Repairer Helper i2000.The range is based on experience at [facility] and users should be aware that target concentrations vary widely depending on concomitant therapy, time post-transplant, and desired degree of immunosuppression. Performed By: #### T ACRO ####[facility] (DEFAULT)[address] [place] [address] CARDIAC RHYTHM (SCANNED)on 0 01-22-2024 [facility] CBC,PLATELETSon 01-22-2024 Hematocrit (Bld) [Volume fraction] 41.5 % Normal 39.6-48.8 [facility] Comment on above: Performed By: #### H EMO ####[facility] (DEFAULT)[address] [place] [address] Hemoglobin (Bld) [Mass/Vol] 13.3 g/dL Low 13.4-16.8 [facility] Comment on above: Performed By: #### H EMOGC ####[facility] (DEFAULT)[address] [place] [address], [place] [address] MCV (RBC) [Entitic vol] 86.8 fL Normal 79.0-94.5 [facility] Comment on above: Performed By: #### H EMOGC ####[facility] (DEFAULT)[address] [place] [address] Mean Cell Hgb 27.8 pg Normal 26.1-33.3 [facility] Comment on above: Performed By: #### H EMOGC ####[facility] (DEFAULT)[address] [place] [address] Mean Cell Hgb Conc 32.0 g/dL Normal 31.9-36.5 [facility] Comment on above: Performed By: #### H EMOGC ####[facility] (DEFAULT)[address] [place] [address] Platelet mean volume (Bld) [Entitic vol] 10.5 fL Normal 8.7-12.3 [facility] Comment on above: Performed By: #### H EMOGC ####[facility] (DEFAULT)[address] [facility] [place] [address] Platelets (Bld) [#/Vol] 186 10*3/uL Normal 146-337 [facility] Comment on above: Performed By: #### H EMOGC ####[facility] (DEFAULT)[address] [place] [address] RBC (Bld) [#/Vol] 4.78 10*6/uL Normal 4.38-5.83 [facility] Comment on above: Performed By: #### H EMO ####[facility] (DEFAULT)[address] [place] [address] RBC Distribution 14.1 % Normal 10.9-14.3 [facility] Comment on above: Performed By: #### H EMOGC ####[facility] (DEFAULT)[address] [place] [address] WBC (Bld) [#/Vol] 3.74 10*3/uL Normal 3.73-10.10 [facility] Comment on above: Performed By: #### H EMOGC ####[facility] (DEFAULT)[address] [place] [address] Erythrocyte distribution width (RBC) [Ratio] 14.1 % 10.9 - 14.3 % [facility] Hematocrit (Bld) [Volume fraction] 41.5 % 39.6 - 48.8 % [facility] Hemoglobin (Bld) [Mass/Vol] 13.3 g/dL Low 13.4 - 16.8 g/dL [facility] Interpretation and review of laboratory results Abnormal [facility] MCH (RBC) [Entitic mass] 27.8 pg 26.1 - 33.[address] [facility] MCHC (RBC) [Mass/Vol] 32.0 g/dL 31.9 - 36.5 g/dL [facility] MCV (RBC) [Entitic vol] 86.8 fL 79.0 - 94.[address] [facility] Platelet mean volume (Bld) [Entitic vol] 10.5 fL 8.7 - 12.[address] [facility] Platelets (Bld) [#/Vol] 186 10*3/uL 146 - 337 K/uL [facility] RBC (Bld) [#/Vol] 4.78 10*6/uL [facility] WBC (Bld) [#/Vol] 3.74 10*3/uL 3.73 - 10. 10 K/uL [facility] CHEM 7 (LYTES,BUN,CREA,GLUC) on 01-22-2024 Anion gap [Moles/Vol] 13 mmol/L Normal 7-17 [facility] Comment on above: Performed By: ###NATHANIEL HERNANDEZ ####[facility] (DEFAULT)[address] [place] [address] Chloride [Moles/Vol] 109 mmol/L High 98-108 [facility] Comment on above: Performed By: #### NATHANIEL RAMÍREZ ####[facility] (DEFAULT)[address] [place] [address] CO2 [Moles/Vol] 23 mmol/L Normal 21-31 [facility] Comment on above: Performed By: ###NATHANIEL HERNANDEZ ####[facility] (DEFAULT)[address] [place] [address] Creatinine [Mass/Vol] 1.10 mg/dL Normal 0.70-1.30 [facility] Comment on above: Performed By: #### NATHANIEL RAMÍREZ ####[facility] (DEFAULT)[address] [place] [address] GFR/1.73 sq M.predicted among non-blacks MDRD (S/P/Bld) [Vol rate/Area] 81 mL/min/{1.73_m2} Normal >=60 [facility] Comment on above: Result Comment: Repo rted eGFR is based on the CKD-EPI 2020 equation using creatinine, age, and sex. Performed By: #### TJ RAMÍREZ7 ####[facility] (DEFAULT)[address] [place] [address] Glucose [Mass/Vol] 84 mg/dL Normal 70-99 [facility] Comment on above: Performed By: #### TJ RAMÍREZ7 ####[facility] (DEFAULT)[address] [facility] [address] Osmolality [Osmolality] 295 mosm/kg Normal 278-305 [facility] Comment on above: Performed By: #### NATHANIEL RAMÍREZ ####[facility] (DEFAULT)[address] [place] [address] Potassium [Moles/Vol] 4.0 mmol/L Normal 3.5-5.0 [facility] Comment on above: Performed By: #### Rod BLOOM CHRod7 ####[facility] (DEFAULT)[address] [place] [address] Sodium [Moles/Vol] 141 mmol/L Normal 135-145 [facility] Comment on above: Performed By: #### Rod BLOOM CHM7 ####[facility] (DEFAULT)[address] [place] [address] Urea nitrogen [Mass/Vol] 16 mg/dL Normal 7-25 [facility] Comment on above: Performed By: #### Rod BLOOM CHM7 ####[facility] (DEFAULT)[address] [place] [address] Urea nitrogen/Creatinine [Mass ratio] 15 mg/mg Normal [facility] Comment on above: Performed By: #### Rod BLOOM CHM7 ####[facility] (DEFAULT)[address] [place] [address] Anion gap [Moles/Vol] 13 mmol/L 7 - 17 mmol/L [facility] Chloride [Moles/Vol] 109 mmol/L High 98 - 10 8 mmol/L [facility] CO2 [Moles/Vol] 23 mmol/L 21 - 31 mmol/L [facility] Creatinine [Mass/Vol] 1.10 mg/dL 0.70 - 1.30 mg/dL [facility] eGFR, CKD-EPI, Male 81 - PINF [facility] Comment on above: Reported eGFR is bas ed on the CKD-EPI 2020 equation using creatinine, age, and sex. Glucose [Mass/Vol] 84 mg/dL 70 - 99 mg/dL [facility] Interpretation and review of laboratory results Abnormal [facility] Osmolality Calc [Osmolality] 295 [facility] Potassium [Moles/Vol] 4.0 mmol/L 3.5 - 5.0 mmol/L [facility] Sodium [Moles/Vol] 141 mmol/L 135 - 145 mmol/L [facility] Urea nitrogen [Mass/Vol] 16 mg/dL 7 - 25 mg/dL [facility] Urea nitrogen/Creatinine [Mass ratio] 15 mg/mg [facility] MAGNESIUMon 01-22-2024 Magnesium [Mass/Vol] 2.0 mg/dL Normal 1.6-2.6 [facility] Comment on above: Performed By: #### Rod BLOOM CHM7 ####[facility] (DEFAULT)[address] [place] [address] Interpretation and review of laboratory results Normal [facility] Magnesium [Mass/Vol] 2.0 mg/dL 1.6 - 2 .6 mg/dL [facility] No Panel Informationon 01-22 [facility] PT,INR,PTTon 01-22-2024 aPTT Coag (Bld) [Time] 29.2 s Normal 24.0-34.3 [facility] Comment on above: Performed By: #### P TPTT ####[facility] (DEFAULT)[address] [place] [address] INR Coag (PPP) [Relative time] 1.1 {INR} Normal 0.9-1.1 [facility] Comment on above: Performed By: #### P TPTT ####[facility] (DEFAULT)[address] [place] [address] PT Coag (PPP) [Time] 14.3 s High 11.9-14.2 [facility] Comment on above: Performed By: #### P TPTT ####[facility] (DEFAULT)[address] [place] [address] aPTT Coag (PPP) [Time] 29.[address] [facility] INR Coag (Bld) [Relative time] 1.1 {INR} 0.9 - 1.1 [facility] Interpretation and review of laboratory results Abnormal [facility] PT Coag (PPP) [Time] 14.3 s High [facility] TACROLIMUS LEVEL, TROUGH (ND E DRUG LEVEL)Ordered By: Sheree Jensen on 01-22-2024 Interpretation and review of laboratory results Normal [facility] Tacrolimus (Bld) [Mass/Vol] 7.9 ng/mL Bone Marrow Transplant: 4.0-12.0, Therapeutic: 5.0-15.0 [facility] Method performed is a chemiluminescent microparticle immunoasssay on the [employer] i2000. The range is based on experience at [facility] and users should be aware that target concentrations vary widely depending on concomitant therapy, time post-transplant, and desired degree of immunosuppression. [facility] TACROLIMUS LEVEL, TROUGH (ND E DRUG LEVEL)on 01-22-2024 Tacrolimus, Trough 7.9 ng/mL Normal Bone Susana ow Transplant: 4.0-12.0, Therapeutic: 5.0-15.0 [facility] Comment on above: Order Comment: Pleas e draw at specified interval PRIOR to dose. Do not hold dose to wait for level. Specimens batched twice per day, (M-F) and once per day weekendsMethod performed is a chemiluminescent microparticle immunoasssay on the [employer] i2000.The range is based on experience at [facility] and users should be aware that target concentrations vary widely depending on concomitant therapy, time post-transplant, and desired degree of immunosuppression. Performed By: #### T ACRO ####[facility] (DEFAULT)[address] [place] [address] TYPE AND SCREENon 01-22-2024 ABO/RH(D) TYPE Positive [facility] ABO/RH(D) TYPE Positive Normal [facility] Comment on above: Performed By: #### X M ####[facility] (DEFAULT)[address] [place] [address] [place] Unspecified body regionOr dered By: Unassigned Pacs on 01-22-2024 [facility] Work Phone: [place] Unspecified body regionon 01-22-2024 Radiology Study observation (narrative) [facility] CBC,PLATELETSon 01-21-2024 Hematocrit (Bld) [Volume fraction] 39.4 % Low 39.6-48.8 [facility] Comment on above: Performed By: #### H EMO ####[facility] (DEFAULT)[address] [place] [address] Hemoglobin (Bld) [Mass/Vol] 12.7 g/dL Low 13.4-16.8 [facility] Comment on above: Performed By: #### H EMOGC ####[facility] (DEFAULT)[address] [place] [address] MCV (RBC) [Entitic vol] 87.0 fL Normal 79.0-94.5 [facility] Comment on above: Performed By: #### H EMOGC ####[facility] (DEFAULT)[address] [place] [address] Mean Cell Hgb 28.0 pg Normal 26.1-33.3 [facility] Comment on above: Performed By: #### H EMOGC ####[facility] (DEFAULT)[address] [place] [address] Mean Cell Hgb Conc 32.2 g/dL Normal 31.9-36.5 [facility] Comment on above: Performed By: #### H EMOGC ####[facility] (DEFAULT)[address] [facility] [place] [address] Platelet mean volume (Bld) [Entitic vol] 10.2 fL Normal 8.7-12.3 [facility] Comment on above: Performed By: #### H EMOGC ####[facility] (DEFAULT)[address] [place] [address] Platelets (Bld) [#/Vol] 157 10*3/uL Normal 146-337 [facility] Comment on above: Performed By: #### H EMOGC ####[facility] (DEFAULT)[address] [facility] [place] [address] RBC (Bld) [#/Vol] 4.53 10*6/uL Normal 4.38-5.83 [facility] Comment on above: Performed By: #### H EMOGC ####[facility] (DEFAULT)[address] [facility] [place] [address] RBC Distribution 14.0 % Normal 10.9-14.3 [facility] Comment on above: Performed By: #### H EMOGC ####[facility] (DEFAULT)[address] [facility] [place] [address] WBC (Bld) [#/Vol] 3.42 10*3/uL Low 3.73-10.10 [facility] Comment on above: Performed By: #### H EMOGC ####[facility] (DEFAULT)[address] [place] [address] Erythrocyte distribution width (RBC) [Ratio] 14.0 % 10.9 - 14.3 % [facility] Hematocrit (Bld) [Volume fraction] 39.4 % Low 39.6 - 48.8 % [facility] Hemoglobin (Bld) [Mass/Vol] 12.7 g/dL Low 13.4 - 16.8 g/dL [facility] Interpretation and review of laboratory results Abnormal [facility] MCH (RBC) [Entitic mass] 28.0 pg 26.1 - 33.[address] [facility] MCHC (RBC) [Mass/Vol] 32.2 g/dL 31.9 - 36.5 g/dL [facility] MCV (RBC) [Entitic vol] 87.0 fL 79.0 - 94.[address] [facility] Platelet mean volume (Bld) [Entitic vol] 10.2 fL 8.7 - 12.[address] [facility] Platelets (Bld) [#/Vol] 157 10*3/uL 146 - 337 K/uL [facility] RBC (Bld) [#/Vol] 4.53 10*6/uL [facility] WBC (Bld) [#/Vol] 3.42 10*3/uL Low 3.73 - 10. 10 K/uL [facility] CHEM 7 (LYTES,BUN,CREA,GLUC) on 01-21-2024 Anion gap [Moles/Vol] 12 mmol/L Normal 7-17 [facility] Comment on above: Performed By: #### NATHANIEL RAMÍREZ ####[facility] (DEFAULT)[address] [place] [address] Chloride [Moles/Vol] 107 mmol/L Normal 98-108 [facility] Comment on above: Performed By: #### NATHANIEL RAMÍREZ ####[facility] (DEFAULT)[address] [place] [address] CO2 [Moles/Vol] 26 mmol/L Normal 21-31 [facility] Comment on above: Performed By: #### NATHANIEL RAMÍREZ ####[facility] (DEFAULT)[address] [place] [address] Creatinine [Mass/Vol] 1.11 mg/dL Normal 0.70-1.30 [facility] Comment on above: Performed By: #### TJ RAMÍREZ7 ####[facility] (DEFAULT)[address] [place] [address] GFR/1.73 sq M.predicted among non-blacks MDRD (S/P/Bld) [Vol rate/Area] 80 mL/min/{1.73_m2} Normal >=60 [facility] Comment on above: Result Comment: Repo rted eGFR is based on the CKD-EPI 2020 equation using creatinine, age, and sex. Performed By: #### NATHANIEL RAMÍREZ ####[facility] (DEFAULT)[address] [place] [address] Glucose [Mass/Vol] 93 mg/dL Normal 70-99 [facility] Comment on above: Performed By: #### NATHANIEL RAMÍREZ ####[facility] (DEFAULT)[address] [facility] [place] [address] Osmolality [Osmolality] 295 mosm/kg Normal 278-305 [facility] Comment on above: Performed By: #### TJ RAMÍREZ7 ####[facility] (DEFAULT)[address] [facility] [place] [address] Potassium [Moles/Vol] 3.9 mmol/L Normal 3.5-5.0 [facility] Comment on above: Performed By: #### NATHANIEL RAMÍREZ ####[facility] (DEFAULT)[address] [facility] [place] [address] Sodium [Moles/Vol] 141 mmol/L Normal 135-145 [facility] Comment on above: Performed By: #### M MERLE CHM7 ####[facility] (DEFAULT)[address] [place] [address] Urea nitrogen [Mass/Vol] 15 mg/dL Normal 7-25 [facility] Comment on above: Performed By: #### M MERLE CHM7 ####[facility] (DEFAULT)[address] [place] [address] Urea nitrogen/Creatinine [Mass ratio] 14 mg/mg Normal [facility] Comment on above: Performed By: #### M MERLE CHM7 ####[facility] (DEFAULT)[address] [place] [address] Anion gap [Moles/Vol] 12 mmol/L 7 - 17 mmol/L [facility] Chloride [Moles/Vol] 107 mmol/L 98 - 10 8 mmol/L [facility] CO2 [Moles/Vol] 26 mmol/L 21 - 31 mmol/L [facility] Creatinine [Mass/Vol] 1.11 mg/dL 0.70 - 1.30 mg/dL [facility] eGFR, CKD-EPI, Male 80 - PINF [facility] Comment on above: Reported eGFR is bas ed on the CKD-EPI 2020 equation using creatinine, age, and sex. Glucose [Mass/Vol] 93 mg/dL 70 - 99 mg/dL [facility] Osmolality Calc [Osmolality] 295 [facility] Potassium [Moles/Vol] 3.9 mmol/L 3.5 - 5.0 mmol/L [facility] Sodium [Moles/Vol] 141 mmol/L 135 - 145 mmol/L [facility] Urea nitrogen [Mass/Vol] 15 mg/dL 7 - 25 mg/dL [facility] Urea nitrogen/Creatinine [Mass ratio] 14 mg/mg [facility] Cardiac catheterization stud yOrdered By: Kelvin Donohue on 01-21-2024 Body surface area Derived from formula 2.[address] [facility] Work Phone: [facility] Work Phone: Cardiac catheterization stud yon [...] with fistula occlusion Kelvin Donohue MD, MPH [employer]ic of Internal Medicine. Section of Advanced Heart Failure and Transplantation Division of Cardiovascular Diseases [facility] [email or web address] INVASIVE CARDIOVASCULAR PROC EDUREon 01-21-2024 INVASIVE CARDIOVASCULAR PROCEDURE Normal [facility] MAGNESIUMon 01-21-2024 Magnesium [Mass/Vol] 1.5 mg/dL Low 1.6-2.6 [facility] Comment on above: Performed By: #### M MERLE [facility] ####[facility] (DEFAULT)[address] [place] [address] Interpretation and review of laboratory results Abnormal [facility] Magnesium [Mass/Vol] 1.5 mg/dL Low 1.6 - 2 .6 mg/dL [facility] No Panel Informationon 01-21 [facility] TACROLIMUS LEVEL, TROUGH (ND E DRUG LEVEL)on 01-21-2024 Interpretation and review of laboratory results Normal [facility] Tacrolimus (Bld) [Mass/Vol] 7.2 ng/mL Bone Marrow Transplant: 4.0-12.0, Therapeutic: 5.0-15.0 [facility] Method performed is a chemiluminescent microparticle immunoasssay on the [employer] i2000. The range is based on experience at [facility] and users should be aware that target concentrations vary widely depending on concomitant therapy, time post-transplant, and desired degree of immunosuppression. [facility] [place] Tacrolimus, Trough 7.2 ng/mL Normal Bone Susana ow Transplant: 4.0-12.0, Therapeutic: 5.0-15.0 [facility] Comment on above: Order Comment: Pleas e draw at specified interval PRIOR to dose. Do not hold dose to wait for level. Specimens batched twice per day, (M-F) and once per day weekendsMethod performed is a chemiluminescent microparticle immunoasssay on the [employer] i2000.The range is based on experience at [facility] and users should be aware that target concentrations vary widely depending on concomitant therapy, time post-transplant, and desired degree of immunosuppression. Performed By: #### T ACRO ####[facility] (DEFAULT)[address] [place] [address] CBC,PLATELETSon 01-20-2024 Hematocrit (Bld) [Volume fraction] 38.9 % Low 39.6-48.8 [facility] Comment on above: Performed By: #### [facility] ####[facility] (DEFAULT)[address] [place] [address] Hemoglobin (Bld) [Mass/Vol] 12.5 g/dL Low 13.4-16.8 [facility] Comment on above: Performed By: #### [facility] ####[facility] (DEFAULT)[address] [place] [address] MCV (RBC) [Entitic vol] 87.2 fL Normal 79.0-94.5 [facility] Comment on above: Performed By: #### H EMO ####[facility] (DEFAULT)[address] [place] [address] Mean Cell Hgb 28.0 pg Normal 26.1-33.3 [facility] Comment on above: Performed By: #### H EMOGC ####[facility] (DEFAULT)[address] [place] [address] Mean Cell Hgb Conc 32.1 g/dL Normal 31.9-36.5 [facility] Comment on above: Performed By: #### H EMOGC ####[facility] (DEFAULT)[address] [place] [address] Platelet mean volume (Bld) [Entitic vol] 10.2 fL Normal 8.7-12.3 [facility] Comment on above: Performed By: #### H EMOGC ####[facility] (DEFAULT)[address] [place] [address] Platelets (Bld) [#/Vol] 166 10*3/uL Normal 146-337 [facility] Comment on above: Performed By: #### H EMOGC ####[facility] (DEFAULT)[address] [facility] [place] [address] RBC (Bld) [#/Vol] 4.46 10*6/uL Normal 4.38-5.83 [facility] Comment on above: Performed By: #### H EMOGC ####[facility] (DEFAULT)[address] [facility] [place] [address] RBC Distribution 13.8 % Normal 10.9-14.3 [facility] Comment on above: Performed By: #### H EMOGC ####[facility] (DEFAULT)[address] [facility] [place] [address] WBC (Bld) [#/Vol] 3.79 10*3/uL Normal 3.73-10.10 [facility] Comment on above: Performed By: #### H EMOGC ####[facility] (DEFAULT)[address] [facility] [place] [address] Erythrocyte distribution width (RBC) [Ratio] 13.8 % 10.9 - 14.3 % [facility] Hematocrit (Bld) [Volume fraction] 38.9 % Low 39.6 - 48.8 % [facility] Hemoglobin (Bld) [Mass/Vol] 12.5 g/dL Low 13.4 - 16.8 g/dL [facility] Interpretation and review of laboratory results Abnormal [facility] MCH (RBC) [Entitic mass] 28.0 pg 26.1 - 33.[address] [facility] MCHC (RBC) [Mass/Vol] 32.1 g/dL 31.9 - 36.5 g/dL [facility] MCV (RBC) [Entitic vol] 87.2 fL 79.0 - 94.[address] [facility] Platelet mean volume (Bld) [Entitic vol] 10.2 fL 8.7 - 12.[address] [facility] Platelets (Bld) [#/Vol] 166 10*3/uL 146 - 337 K/uL [facility] RBC (Bld) [#/Vol] 4.46 10*6/uL [facility] WBC (Bld) [#/Vol] 3.79 10*3/uL 3.73 - 10. 10 K/uL [facility] CHEM 7 (LYTES,BUN,CREA,GLUC) on 01-20-2024 Anion gap [Moles/Vol] 12 mmol/L Normal 7-17 [facility] Comment on above: Performed By: #### NATHANIEL RAMÍREZ, HFP ####[facility] (DEFAULT)[address] [place] [address] Chloride [Moles/Vol] 105 mmol/L Normal 98-108 [facility] Comment on above: Performed By: #### NATHANIEL RAMÍREZ, HFP ####[facility] (DEFAULT)[address] [place] [address] CO2 [Moles/Vol] 28 mmol/L Normal 21-31 [facility] Comment on above: Performed By: #### NATHANIEL RAMÍREZ, HFP ####[facility] (DEFAULT)[address] [place] [address] Creatinine [Mass/Vol] 1.12 mg/dL Normal 0.70-1.30 [facility] Comment on above: Performed By: #### NATHANIEL RAMÍREZ, HFP ####[facility] (DEFAULT)[address] [place] [address] GFR/1.73 sq M.predicted among non-blacks MDRD (S/P/Bld) [Vol rate/Area] 79 mL/min/{1.73_m2} Normal >=60 [facility] Comment on above: Result Comment: Repo rted eGFR is based on the CKD-EPI 2020 equation using creatinine, age, and sex. Performed By: #### NATHANIEL RAMÍREZ, HFP ####[facility] (DEFAULT)[address] [facility] [place] [address] Glucose [Mass/Vol] 88 mg/dL Normal 70-99 [facility] Comment on above: Performed By: #### NATHANIEL RAMÍREZ, HFP ####[facility] (DEFAULT)[address] [facility] [place] [address] Osmolality [Osmolality] 294 mosm/kg Normal 278-305 [facility] Comment on above: Performed By: #### NATHANIEL RAMÍREZ, HFP ####[facility] (DEFAULT)[address] [facility] [place] [address] Potassium [Moles/Vol] 3.8 mmol/L Normal 3.5-5.0 [facility] Comment on above: Performed By: #### NATHANIEL RAMÍREZ, HFP ####[facility] (DEFAULT)[address] [place] [address] Sodium [Moles/Vol] 141 mmol/L Normal 135-145 [facility] Comment on above: Performed By: #### NATHANIEL RAMÍREZ, HFP ####[facility] (DEFAULT)[address] [place] [address] Urea nitrogen [Mass/Vol] 15 mg/dL Normal 7-25 [facility] Comment on above: Performed By: #### M TJ BLOOM7, HFP ####[facility] (DEFAULT)[address] [place] [address] Urea nitrogen/Creatinine [Mass ratio] 13 mg/mg Normal [facility] Comment on above: Performed By: #### M NATHANIEL BLOOM, HFP ####[facility] (DEFAULT)[address] [place] [address] Anion gap [Moles/Vol] 12 mmol/L 7 - 17 [facility] Chloride [Moles/Vol] 105 mmol/L 98 - 10 8 mmol/L [facility] CO2 [Moles/Vol] 28 mmol/L 21 - 31 mmol/L [facility] Creatinine [Mass/Vol] 1.12 mg/dL 0.70 - 1.30 mg/dL [facility] eGFR, CKD-EPI, Male 79 - PINF [facility] Comment on above: Reported eGFR is bas ed on the CKD-EPI 2020 equation using creatinine, age, and sex. Glucose [Mass/Vol] 88 mg/dL 70 - 99 mg/dL [facility] Osmolality Calc [Osmolality] 294 [facility] Potassium [Moles/Vol] 3.8 mmol/L 3.5 - 5.0 mmol/L [facility] Sodium [Moles/Vol] 141 mmol/L 135 - 145 mmol/L [facility] Urea nitrogen [Mass/Vol] 15 mg/dL 7 - 25 mg/dL [facility] Urea nitrogen/Creatinine [Mass ratio] 13 mg/mg [facility] Cardiac catheterization stud yon 01-20-2024 [facility] Radiology Study observation (narrative) [facility] Radiology Study observation (narrative) [facility] EBV BY PCR, QUANTITATIVE,BLO ODOrdered By: Charlotte Jensen on 01-20-2024 EBV DNA ESTELITA+probe (Unsp spec) [#/Vol] NINF [facility] Interpretation and review of laboratory results Normal [facility] This test was perfor med using a real time PCR assay. The dynamic range for this assay is 1000-5,000,000 IU/mL. A result <1000 IU/mL does not rule out the presence of EBV DNA in quantities below the sensitivity of this assay. This test was developed and its performance characteristics determined by [facility]. It has not been cleared or approved by the FDA. The laboratory is regulated under CLIA as qualified to perform high-complexity testing. This test is used for clinical purposes. It should not be regarded as investigational or for research. [facility] HEPATIC FUNCTION PANELon Albumin [Mass/Vol] 3.7 g/dL Normal 3.5-5.0 [facility] Comment on above: Performed By: #### NATHANIEL RAMÍREZ, HFP ####[facility] (DEFAULT)[address] [facility] [place] [address] ALP [Catalytic activity/Vol] 73 U/L Normal 32-126 [facility] Comment on above: Performed By: #### NATHANIEL RAMÍREZ, HFP ####[facility] (DEFAULT)[address] [place] [address] ALT [Catalytic activity/Vol] 12 U/L Normal 10-52 [facility] Comment on above: Performed By: #### NATHANIEL RAMÍREZ, HFP ####[facility] (DEFAULT)[address] [place] [address] AST [Catalytic activity/Vol] 19 U/L Normal 10-39 [facility] Comment on above: Performed By: #### NATHANIEL RAMÍREZ, HFP ####[facility] (DEFAULT)[address] [place] [address] Bilirubin [Mass/Vol] 2.1 mg/dL High <1.5 [facility] Comment on above: Performed By: #### M NATHANIEL BLOOM, HFP ####[facility] (DEFAULT)[address] [facility] [place] [address] Bilirubin.indirect [Mass/Vol] 0.5 mg/dL High <0.3 [facility] Comment on above: Performed By: #### M NATHANIEL BLOOM, HFP ####[facility] (DEFAULT)[address] [place] [address] Protein [Mass/Vol] 6.1 g/dL Low 6.4-8.3 [facility] Comment on above: Performed By: #### M NATHANIEL BLOOM, HFP ####[facility] (DEFAULT)[address] [place] [address] Albumin [Mass/Vol] 3.7 g/dL 3.5 - 5.0 g/dL [facility] ALP [Catalytic activity/Vol] 73 U/L 32 - 126 U/L [facility] ALT [Catalytic activity/Vol] 12 U/L 10 - 52 U/L [facility] AST [Catalytic activity/Vol] 19 U/L 10 - 39 U/L [facility] Bilirubin [Mass/Vol] 2.1 mg/dL High NINF - 1.5 mg/dL [facility] Bilirubin.direct [Mass/Vol] 0.5 mg/dL High NINF - 0.3 mg/dL [facility] Interpretation and review of laboratory results Abnormal [facility] Protein [Mass/Vol] 6.1 g/dL Low 6.4 - 8.3 g/dL [facility] ITRACONAZOLE LEVELon 024 Hydroxyitraconazole 7.6 mcg/mL Normal [facility] Comment on above: Order Comment: Dilan gregory draw level at specified interval PRIOR to dose. Result Comment: ---- REFERENCE VALUE No therapeutic range established; activity and serumconcentration are similar to parent drug. ADDITIONAL INFORMATION This test was developed and its performance characteristicsdetermined by [facility] in a manner consistent with CLIArequirements. This test has not been cleared or approved bythe U.S. Food and Drug Administration.Test Performed by:[facility] - [address] [address] Director: Rosendo Bose M.D. Ph.D.; CLIA# [id number] Performed By: #### Y ITCON ####[facility] (DEFAULT)[address] [address] Itraconazole 6.0 mcg/mL Normal [facility] Comment on above: Order Comment: Pleas e draw level at specified interval PRIOR to dose. Result Comment: ---- REFERENCE VALUE-------------------------->0.5 (localized infection), >1.0 (systemic infection) Performed By: #### Y ITCON ####[facility] (DEFAULT)[address] [place] [address] MAGNESIUMon 01-20-2024 Magnesium [Mass/Vol] 1.6 mg/dL Normal 1.6-2.6 [facility] Comment on above: Performed By: #### M MERLE, CHM7, [facility] ####[facility] (DEFAULT)[address] [place] [address] Interpretation and review of laboratory results Normal [facility] Magnesium [Mass/Vol] 1.6 mg/dL 1.6 - 2 .6 mg/dL [facility] No Panel Informationon 01-20 [facility] POCT CO-OXIMETRYon Hemoglobin (Bld) [Mass/Vol] 12.8 g/dL Low 13.4 - 16.8 g/dL [facility] Interpretation and review of laboratory results Abnormal [facility] Oxyhemoglobin 69 % Low 94 - 98 % [facility] Ordering physician notified. Test performed at address of the patient encounter. [facility] [place] Hemoglobin (Bld) [Mass/Vol] 13.3 g/dL Low 13.4 - 16.8 g/dL [facility] Interpretation and review of laboratory results Abnormal [facility] Oxyhemoglobin 69 % Low 94 - 98 % [facility] Ordering physician notified. Test performed at address of the patient encounter. [facility] [place] PT,INR,PTTon 01-20-2024 aPTT Coag (Bld) [Time] 30.6 s Normal 24.0-34.3 [facility] Comment on above: Performed By: #### P TPTT ####[facility] (DEFAULT)[address] [place] [address] INR Coag (PPP) [Relative time] 1.2 {INR} High 0.9-1.1 [facility] Comment on above: Performed By: #### P TPTT ####[facility] (DEFAULT)[address] [place] [address] PT Coag (PPP) [Time] 15.5 s High 11.9-14.2 [facility] Comment on above: Performed By: #### P TPTT ####[facility] (DEFAULT)[address] [place] [address] aPTT Coag (PPP) [Time] 30.[address] [facility] INR Coag (Bld) [Relative time] 1.2 {INR} High 0.9 - 1.1 [facility] Interpretation and review of laboratory results Abnormal [facility] PT Coag (PPP) [Time] 15.5 s High [facility] [place] TACROLIMUS LEVEL, TROUGH (ND E DRUG LEVEL)Ordered By: Yanira Marcum on 01-20-2024 Interpretation and review of laboratory results Normal [facility] Tacrolimus (Bld) [Mass/Vol] 7.7 ng/mL Bone Marrow Transplant: 4.0-12.0, Therapeutic: 5.0-15.0 [facility] Method performed is a chemiluminescent microparticle immunoasssay on the [employer] i2000. The range is based on experience at [facility] and users should be aware that target concentrations vary widely depending on concomitant therapy, time post-transplant, and desired degree of immunosuppression. [facility] TACROLIMUS LEVEL, TROUGH (ND E DRUG LEVEL)on 01-20-2024 Tacrolimus, Trough 7.7 ng/mL Normal Bone Susana ow Transplant: 4.0-12.0, Therapeutic: 5.0-15.0 [facility] Comment on above: Order Comment: Pleas e draw at specified interval PRIOR to dose. Do not hold dose to wait for level. Specimens batched twice per day, (M-F) and once per day weekendsMethod performed is a chemiluminescent microparticle immunoasssay on the [employer] i2000.The range is based on experience at [facility] and users should be aware that target concentrations vary widely depending on concomitant therapy, time post-transplant, and desired degree of immunosuppression. Performed By: #### T ACRO ####[facility] (DEFAULT)[address] [place] [address] CBC,PLATELETSon 01-19-2024 Hematocrit (Bld) [Volume fraction] 37.5 % Low 39.6-48.8 [facility] Comment on above: Performed By: #### [facility] ####[facility] (DEFAULT)[address] [place] [address] Hemoglobin (Bld) [Mass/Vol] 12.1 g/dL Low 13.4-16.8 [facility] Comment on above: Performed By: #### [facility] ####[facility] (DEFAULT)[address] [place] [address] MCV (RBC) [Entitic vol] 87.8 fL Normal 79.0-94.5 [facility] Comment on above: Performed By: #### H EMOGC ####[facility] (DEFAULT)[address] [place] [address] Mean Cell Hgb 28.3 pg Normal 26.1-33.3 [facility] Comment on above: Performed By: #### H EMOGC ####[facility] (DEFAULT)[address] [place] [address] Mean Cell Hgb Conc 32.3 g/dL Normal 31.9-36.5 [facility] Comment on above: Performed By: #### H EMOGC ####[facility] (DEFAULT)[address] [place] [address] Platelet mean volume (Bld) [Entitic vol] 10.4 fL Normal 8.7-12.3 [facility] Comment on above: Performed By: #### H EMOGC ####[facility] (DEFAULT)[address] [place] [address] Platelets (Bld) [#/Vol] 163 10*3/uL Normal 146-337 [facility] Comment on above: Performed By: #### H EMOGC ####[facility] (DEFAULT)[address] [place] [address] RBC (Bld) [#/Vol] 4.27 10*6/uL Low 4.38-5.83 [facility] Comment on above: Performed By: #### H EMOGC ####[facility] (DEFAULT)[address] [place] [address] RBC Distribution 13.9 % Normal 10.9-14.3 [facility] Comment on above: Performed By: #### H EMOGC ####[facility] (DEFAULT)[address] [place] [address] WBC (Bld) [#/Vol] 3.69 10*3/uL Low 3.73-10.10 [facility] Comment on above: Performed By: #### [facility] ####[facility] (DEFAULT)[address] [place] [address] Erythrocyte distribution width (RBC) [Ratio] 13.9 % 10.9 - 14.3 % [facility] Hematocrit (Bld) [Volume fraction] 37.5 % Low 39.6 - 48.8 % [facility] Hemoglobin (Bld) [Mass/Vol] 12.1 g/dL Low 13.4 - 16.8 g/dL [facility] Interpretation and review of laboratory results Abnormal [facility] MCH (RBC) [Entitic mass] 28.3 pg 26.1 - 33.[address] [facility] MCHC (RBC) [Mass/Vol] 32.3 g/dL 31.9 - 36.5 g/dL [facility] MCV (RBC) [Entitic vol] 87.8 fL 79.0 - 94.[address] [facility] Platelet mean volume (Bld) [Entitic vol] 10.4 fL 8.7 - 12.[address] [facility] Platelets (Bld) [#/Vol] 163 10*3/uL 146 - 337 K/uL [facility] RBC (Bld) [#/Vol] 4.27 10*6/uL Low [facility] WBC (Bld) [#/Vol] 3.69 10*3/uL Low 3.73 - 10. 10 K/uL [facility] [place] CHEM 7 (LYTES,BUN,CREA,GLUC) on 01-19-2024 Anion gap [Moles/Vol] 14 mmol/L Normal 7-17 [facility] Comment on above: Performed By: #### NATHANIEL RAMÍREZ ####[facility] (DEFAULT)[address] [place] [address] Chloride [Moles/Vol] 106 mmol/L Normal 98-108 [facility] Comment on above: Performed By: #### NATHANIEL RAMÍREZ ####[facility] (DEFAULT)[address] [place] [address] CO2 [Moles/Vol] 24 mmol/L Normal 21-31 [facility] Comment on above: Performed By: #### Rod BLOMO CHM7 ####[facility] (DEFAULT)[address] [place] [address] Creatinine [Mass/Vol] 1.13 mg/dL Normal 0.70-1.30 [facility] Comment on above: Performed By: #### Rod BLOOM CHM7 ####[facility] (DEFAULT)[address] [place] [address] GFR/1.73 sq M.predicted among non-blacks MDRD (S/P/Bld) [Vol rate/Area] 78 mL/min/{1.73_m2} Normal >=60 [facility] Comment on above: Result Comment: Repo rted eGFR is based on the CKD-EPI 2020 equation using creatinine, age, and sex. Performed By: #### TJ RAMÍREZ7 ####[facility] (DEFAULT)[address] [facility] [place] [address] Glucose [Mass/Vol] 86 mg/dL Normal 70-99 [facility] Comment on above: Performed By: #### Rdo BLOOM CHM7 ####[facility] (DEFAULT)[address] [facility] [place] [address] Osmolality [Osmolality] 293 mosm/kg Normal 278-305 [facility] Comment on above: Performed By: #### TJ RAMÍREZ7 ####[facility] (DEFAULT)[address] [place] [address] Potassium [Moles/Vol] 3.8 mmol/L Normal 3.5-5.0 [facility] Comment on above: Performed By: #### Rod BLOOM CHM7 ####[facility] (DEFAULT)[address] [place] [address] Sodium [Moles/Vol] 140 mmol/L Normal 135-145 [facility] Comment on above: Performed By: #### Rod BLOOM CHM7 ####[facility] (DEFAULT)[address] [place] [address] Urea nitrogen [Mass/Vol] 16 mg/dL Normal 7-25 [facility] Comment on above: Performed By: #### Rod BLOOM CHM7 ####[facility] (DEFAULT)[address] [place] [address] Urea nitrogen/Creatinine [Mass ratio] 14 mg/mg Normal [facility] Comment on above: Performed By: #### Rod BLOOM CHM7 ####[facility] (DEFAULT)[address] [place] [address] Anion gap [Moles/Vol] 14 mmol/L 7 - 17 mmol/L [facility] Chloride [Moles/Vol] 106 mmol/L 98 - 10 8 mmol/L [facility] CO2 [Moles/Vol] 24 mmol/L 21 - 31 mmol/L [facility] Creatinine [Mass/Vol] 1.13 mg/dL 0.70 - 1.30 mg/dL [facility] eGFR, CKD-EPI, Male 78 - PINF [facility] Comment on above: Reported eGFR is bas ed on the CKD-EPI 2020 equation using creatinine, age, and sex. Glucose [Mass/Vol] 86 mg/dL 70 - 99 mg/dL [facility] Osmolality Calc [Osmolality] 293 [facility] Potassium [Moles/Vol] 3.8 mmol/L 3.5 - 5.0 mmol/L [facility] Sodium [Moles/Vol] 140 mmol/L 135 - 145 mmol/L [facility] Urea nitrogen [Mass/Vol] 16 mg/dL 7 - 25 mg/dL [facility] Urea nitrogen/Creatinine [Mass ratio] 14 mg/mg [facility] EBV BY PCR, QUANTITATIVE,BLO ODon 01-19-2024 Ebv By Pcr, Quant, Blood <1000 Normal <1000 [facility] Comment on above: Order Comment: This test was performed using a real time PCR assay. The dynamic range for this assay is 1000-5,000,000 IU/mL. A result <1000 IU/mL does not rule out the presence of EBV DNA in quantities below the sensitivity of this assay. This test was developed and its performance characteristics determined by [facility]. It has not been cleared or approved by the FDA. The laboratory is regulated under CLIA as qualified to perform high-complexity testing. This test is used for clinical purposes. It should not be regarded as investigational or for research. Performed By: #### E BVPCR ####[facility] (DEFAULT)[address] [place] [address] HISTOPLASMA AND BLASTOMYCES ANTIGEN, ENZYME IMMUNOASSAY, SERMon 01-19-2024 Histoplasma/Blastomy antonia Ag Result Not detected Not Detected [facility] Comment on above: No antigen from Hist oplasma or Blastomyces detected. False negative results may occur depending on extent of disease, and/or site of infection. Repeat testing on a new specimen if clinically indicated. Histoplasma/Blastomy antonia Ag Value Not detected ng/mL [facility] Comment on above: ADDITIONAL INFORMATION This test was developed and its performance characteristics determined by [facility] in a manner consistent with CLIA requirements. This test has not been cleared or approved by the U.S. Food and Drug Administration. Test Performed by: [facility] [place] [id number] [place] [address] Yoga Teacher: Rosendo Bose M.D. Ph.D.; CLIA# [id number] [facility] MAGNESIUMon 01-19-2024 Magnesium [Mass/Vol] 1.8 mg/dL Normal 1.6-2.6 [facility] Comment on above: Performed By: #### M GO, CHM7 ####[facility] (DEFAULT)[address] [place] [address] Interpretation and review of laboratory results Normal [facility] Magnesium [Mass/Vol] 1.8 mg/dL 1.6 - 2 .6 mg/dL [facility] No Panel Informationon 01-19 [facility] TACROLIMUS LEVEL, TROUGH (ND E DRUG LEVEL)Ordered By: Raymundo Mehta on 01-19-2024 Interpretation and review of laboratory results Normal [facility] Tacrolimus (Bld) [Mass/Vol] 6.8 ng/mL Bone Marrow Transplant: 4.0-12.0, Therapeutic: 5.0-15.0 [facility] Method performed is a chemiluminescent microparticle immunoasssay on the [employer] i2000. The range is based on experience at [facility] and users should be aware that target concentrations vary widely depending on concomitant therapy, time post-transplant, and desired degree of immunosuppression. [facility] [place] TACROLIMUS LEVEL, TROUGH (ND E DRUG LEVEL)on 01-19-2024 Tacrolimus, Trough 6.8 ng/mL Normal Bone Susana ow Transplant: 4.0-12.0, Therapeutic: 5.0-15.0 [facility] Comment on above: Order Comment: Pleas e draw at specified interval PRIOR to dose. Do not hold dose to wait for level. Specimens batched twice per day, (M-F) and once per day weekendsMethod performed is a chemiluminescent microparticle immunoasssay on the [employer] i2000.The range is based on experience at [facility] and users should be aware that target concentrations vary widely depending on concomitant therapy, time post-transplant, and desired degree of immunosuppression. Performed By: #### T ACRO ####[facility] (DEFAULT)[address] [place] [address] US AV fistulaOrdered By: Diana Reyes on 01-19-2024 [facility] Work Phone: US AV fistulaon 01-19-2024 Radiology Study observation (narrative) [facility] AFP TUMOR MARKEROrdered By: Francisca Alaniz on 01-18-2024 AFP.tumor marker [Mass/Vol] ng/mL NINF - 8.1 ng/mL [facility] Comment on above: This test was perfor med on the [employer] IM Immunoassay platform by [employer] which is a two-site sandwich chemiluminescent immunoassay. It is important to note that assays using different manufacturers and/or methods may not be comparable. Interpretation and review of laboratory results Normal [facility] [place] CBC,PLATELETSon 01-18-2024 Hematocrit (Bld) [Volume fraction] 38.4 % Low 39.6-48.8 [facility] Comment on above: Performed By: #### H EMOGC ####[facility] (DEFAULT)[address] [facility] [place] [address] Hemoglobin (Bld) [Mass/Vol] 12.1 g/dL Low 13.4-16.8 [facility] Comment on above: Performed By: #### H EMOGC ####[facility] (DEFAULT)[address] [place] [address] MCV (RBC) [Entitic vol] 88.3 fL Normal 79.0-94.5 [facility] Comment on above: Performed By: #### H EMOGC ####[facility] (DEFAULT)[address] [facility] [place] [address] Mean Cell Hgb 27.8 pg Normal 26.1-33.3 [facility] Comment on above: Performed By: #### H EMOGC ####[facility] (DEFAULT)[address] [place] [address] Mean Cell Hgb Conc 31.5 g/dL Low 31.9-36.5 [facility] Comment on above: Performed By: #### H EMOGC ####[facility] (DEFAULT)[address] [place] [address] Platelet mean volume (Bld) [Entitic vol] 10.4 fL Normal 8.7-12.3 [facility] Comment on above: Performed By: #### H EMOGC ####[facility] (DEFAULT)[address] [facility] [place] [address] Platelets (Bld) [#/Vol] 183 10*3/uL Normal 146-337 [facility] Comment on above: Performed By: #### H EMO ####[facility] (DEFAULT)[address] [place] [address] RBC (Bld) [#/Vol] 4.35 10*6/uL Low 4.38-5.83 [facility] Comment on above: Performed By: #### H EMO ####[facility] (DEFAULT)[address] [place] [address] RBC Distribution 13.9 % Normal 10.9-14.3 [facility] Comment on above: Performed By: #### H EMO ####[facility] (DEFAULT)[address] [place] [address] WBC (Bld) [#/Vol] 3.66 10*3/uL Low 3.73-10.10 [facility] Comment on above: Performed By: #### [facility] ####[facility] (DEFAULT)[address] [place] [address] Erythrocyte distribution width (RBC) [Ratio] 13.9 % 10.9 - 14.3 % [facility] Hematocrit (Bld) [Volume fraction] 38.4 % Low 39.6 - 48.8 % [facility] Hemoglobin (Bld) [Mass/Vol] 12.1 g/dL Low 13.4 - 16.8 g/dL [facility] Interpretation and review of laboratory results Abnormal [facility] MCH (RBC) [Entitic mass] 27.8 pg 26.1 - 33.[address] [facility] MCHC (RBC) [Mass/Vol] 31.5 g/dL Low 31.9 - 36.5 g/dL [facility] MCV (RBC) [Entitic vol] 88.3 fL 79.0 - 94.[address] [facility] Platelet mean volume (Bld) [Entitic vol] 10.4 fL 8.7 - 12.[address] [facility] Platelets (Bld) [#/Vol] 183 10*3/uL 146 - 337 K/uL [facility] RBC (Bld) [#/Vol] 4.35 10*6/uL Low [facility] WBC (Bld) [#/Vol] 3.66 10*3/uL Low 3.73 - 10. 10 K/uL [facility] CHEM 7 (LYTES,BUN,CREA,GLUC) on 01-18-2024 Anion gap [Moles/Vol] 11 mmol/L Normal 7-17 [facility] Comment on above: Performed By: #### M GO, CHM7, HFP, TSHQR ####[facility] (DEFAULT)[address] [place] [address] Chloride [Moles/Vol] 108 mmol/L Normal 98-108 [facility] Comment on above: Performed By: #### M GO, CHM7, HFP, TSHQR ####[facility] (DEFAULT)[address] [place] [address] CO2 [Moles/Vol] 26 mmol/L Normal 21-31 [facility] Comment on above: Performed By: #### M GO, CHM7, HFP, TSHQR ####[facility] (DEFAULT)[address] [place] [address] Creatinine [Mass/Vol] 1.00 mg/dL Normal 0.70-1.30 [facility] Comment on above: Performed By: #### M GO, CHM7, HFP, TSHQR ####[facility] (DEFAULT)[address] [place] [address] eGFR, CKD-EPI, Male > Normal >=60 [facility] Comment on above: Result Comment: Repo rted eGFR is based on the CKD-EPI 2020 equation using creatinine, age, and sex. Performed By: #### M GO, CHM7, HFP, TSHQR ####[facility] (DEFAULT)[address] [place] [address] Glucose [Mass/Vol] 89 mg/dL Normal 70-99 [facility] Comment on above: Performed By: #### M GO, CHM7, HFP, TSHQR ####[facility] (DEFAULT)[address] [place] [address] Osmolality [Osmolality] 295 mosm/kg Normal 278-305 [facility] Comment on above: Performed By: #### M GO, CHM7, HFP, TSHQR ####[facility] (DEFAULT)[address] [place] [address] Potassium [Moles/Vol] 3.9 mmol/L Normal 3.5-5.0 [facility] Comment on above: Performed By: #### M GO, CHM7, HFP, TSHQR ####[facility] (DEFAULT)[address] [place] [address] Sodium [Moles/Vol] 141 mmol/L Normal 135-145 [facility] Comment on above: Performed By: #### M GO, CHM7, HFP, TSHQR ####[facility] (DEFAULT)[address] [place] [address] Urea nitrogen [Mass/Vol] 16 mg/dL Normal 7-25 [facility] Comment on above: Performed By: #### M GO, CHM7, HFP, TSHQR ####[facility] (DEFAULT)[address] [place] [address] Urea nitrogen/Creatinine [Mass ratio] 16 mg/mg Normal [facility] Comment on above: Performed By: #### M GO, CHM7, HFP, TSHQR ####[facility] (DEFAULT)[address] [place] [address] Anion gap [Moles/Vol] 11 mmol/L 7 - 17 mmol/L [facility] Chloride [Moles/Vol] 108 mmol/L 98 - 10 8 mmol/L [facility] CO2 [Moles/Vol] 26 mmol/L 21 - 31 mmol/L [facility] Creatinine [Mass/Vol] 1.00 mg/dL 0.70 - 1.30 mg/dL [facility] eGFR, CKD-EPI, Male - PINF [facility] Comment on above: Reported eGFR is bas ed on the CKD-EPI 2020 equation using creatinine, age, and sex. Glucose [Mass/Vol] 89 mg/dL 70 - 99 mg/dL [facility] Osmolality Calc [[facility]olality] [facility] Potassium [Moles/Vol] 3.9 mmol/L 3.5 - 5.0 mmol/L [facility] Sodium [Moles/Vol] 141 mmol/L 135 - 145 mmol/L [facility] Urea nitrogen [Mass/Vol] 16 mg/dL 7 - 25 mg/dL [facility] Urea nitrogen/Creatinine [Mass ratio] 16 mg/mg [facility] Cardiac echo study Procedure Ordered By: Gian Carlos on 01-18-2024 Ao ASC index 1.63 cm/m2 [facility] Work Phone: Ao peak meliton 1.46 m/s [facility] Work Phone: Ao SOV index 1.56 cm/m2 [facility] Work Phone: Ao STJ index 1.25 cm/m2 [facility] Work Phone: Ao VTI 35.[address] [facility] Work Phone: Ascending aorta 3.39 cm [facility] Work Phone: AV LVOT peak gradient [address] [facility] Work Phone: AV mean gradient 5 mmHg [facility] Work Phone: AV peak gradient 9 [facility]: [facility] valve area 3.09 cm2 [facility] Work Phone: [facility]: VEGA (continuity Vmax) 3.01 cm2 [facility] Work Phone: VEGA (continuity VTI) 3.09 cm2 [facility] Work Phone: VEGA index (continuity Vmax) 1.45 m/s [facility] Work Phone: VEGA index (continuity VTI) 1.49 cm2/m2 [facility] Work Phone: Avg e' pk meliton 0.07 m/s [facility] Work Phone: Avg E/e' ratio 19.45 [facility] Work Phone: Body surface area Derived from formula 2.[address] [facility] Work Phone: BP EF 62 % [facility] [facility] Work Phone: DI (Vmax) 0.73 [facility] Work Phone: DI (VTI) 0.74 m/2 [facility] Work Phone: E wave decelartion time 180.38 msec [facility]: e' lateral pk meliton 0.0789 [facility]s [facility]: e' lateral pk meliton 0.08 [facility]s [facility]: e' septal pk meliton 0.0653 m/s [facility] Work Phone: e' septal pk meliton 0.07 m/s [facility] Work Phone: E/A ratio 2.67 [facility] Work Phone: E/e' lateral ratio 17.62 [facility] Work Phone: E/e' septal ratio 21.29 [facility] Work Phone: EF SP 2CH 66 [facility] Work Phone: EF SP 4CH 58 [facility] Work Phone: FS 28 % 28 - 44 % [facility] Work Phone: IVC ostium 2.30 cm [facility] Work Phone: IVS 1.11 cm [facility] Work Phone: LA AREA 2CH 24.36 cm2 [facility] Work Phone: LA area 4CH 20.36 cm2 [facility] Work Phone: LA ESV BP (MOD) 64 [facility] ESV BP (MOD) index 31 mL/m2 [facility] Work Phone: LA ESV SP 2CH (MOD) 76 mL [facility] Work Phone: LA ESV SP 4CH (MOD) 53 mL [facility] Work Phone: LV EDV BP 180 mL [facility] Work Phone: LV EDV SP 2CH 190 mL [facility] Work Phone: LV EDV SP 4CH 166 mL [facility] Work Phone: LV ESV BP 69 mL [facility] Work Phone: LV ESV SP 2CH 65 mL [facility] Work Phone: LV ESV SP 4CH [address] [facility] Work Phone: LV mass 254.73 g [facility] Work Phone: LV Mass Index 122.5 g/m2 [facility] Work Phone: LV RWT 0.42 [facility] Work Phone: LV stroke volume BP (ml) [address] [facility] Work Phone: LV stroke volume index BP 53.37 mL/m2 [facility] Work Phone: [phone] [facility] Work Phone: LVIDS 3.[address] [facility] Work Phone: LVOT area 4.[address] [facility] Work Phone: LVOT diameter 2.[address] [facility] Work Phone: LVOT peak meliton 1.06 m/s [facility] Work Phone: LVOT peak VTI 26.[address] [facility] Work Phone: [phone] LVOT stroke volume [address] [facility] Work Phone: LVOT stroke volume index 53.13 ml/m2 [facility] Work Phone: Mr max meliton 4.21 m/s [facility] Work Phone: MR VTI 134.50 cm [facility] Work Phone: [facility] gradient [facility]: MV peak gradient 11 mmHg [facility] Work Phone: MV pk A meliton 0.52 m/s [facility] Work Phone: MV pk E meliton 1.39 m/s [facility] Work Phone: MV stenosis pressure 1/[address] [facility] Work Phone: MV valve area by continuity eq 2.[address] [facility] Work Phone: MV valve area p 1/[address] [facility] Work Phone: MV VTI 37.[address] [facility] Work Phone: MVA (continuity VTI) 2.[address] [facility] Work Phone: [facility] AV VTI RATIO PRE STRESS 0.74 [facility] Work Phone: [facility]SU ECHO LV BIPLANE SYSTOLIC VOLUME INDEX 33.17 mL/m2 [facility] Work Phone: [facility] ECHO LV BP DIASTOLIC VOLUME INDEX 86.54 mL/m2 [facility] Work Phone: [facility] ECHO MR PEAK GRADIENT 70.[address] [facility] Work Phone: PW 1.[address] [facility] Work Phone: RA area 4CH (MOD) 14.50 cm2 [facility] Work Phone: RA vol index 4CH (MOD) 18.27 mL/m2 [facility] Work Phone: Right atrium volume 4 chamber method of disks [address] [facility] Work Phone: RV Area diastolic 33.20 cm2 [facility] Work Phone: RV Area systolic 21.30 cm2 [facility] Work Phone: RV basal diam 4.52 cm [facility] Work Phone: RV Fractional area change 35.8 % [facility] Work Phone: RV long diam 8.96 cm [facility] Work Phone: RV mid diam 3.70 cm [facility] Work Phone: RV S' 22.01 cm/s [facility] Work Phone: RVOT peak gradient 4 [facility]: RVOT peak meliton 0.96 m/s [facility] Work Phone: RVOT peak VTI 20.[address] [facility] Work Phone: Sinus 3.[address] [facility] Work Phone: STJ 2.[address] [facility] Work Phone: Stroke Volume 111 cm/mL [facility] Work Phone: Stroke volume index 53 [facility] Work Phone: TAPSE 2.[address] [facility] Work Phone: [facility] Work Phone: Cardiac echo study Procedure [...] echocardiography study was performed. Imaging system used: Mowjow. Indications Indications for study: shortness of breath. [facility] Radiology Study observation (narrative) [facility] HEPATIC FUNCTION PANELon Albumin [Mass/Vol] 3.5 g/dL Normal 3.5-5.0 [facility] Comment on above: Performed By: #### M GO, CHM7, HFP, TSHQR ####[facility] (DEFAULT)[address] [place] [address] ALP [Catalytic activity/Vol] 70 U/L Normal 32-126 [facility] Comment on above: Performed By: #### M GO, CHM7, HFP, TSHQR ####[facility] (DEFAULT)[address] [place] [address] ALT [Catalytic activity/Vol] 8 U/L Low 10-52 [facility] Comment on above: Performed By: #### M GO, CHM7, HFP, TSHQR ####[facility] (DEFAULT)[address] [place] [address] AST [Catalytic activity/Vol] 20 U/L Normal 10-39 [facility] Comment on above: Performed By: #### M MERLE, CHM7, HFP, TSHQR ####[facility] (DEFAULT)[address] [place] [address] Bilirubin [Mass/Vol] 1.7 mg/dL High <1.5 [facility] Comment on above: Performed By: #### M MERLE, CHM7, HFP, TSHQR ####[facility] (DEFAULT)[address] [place] [address] Bilirubin.indirect [Mass/Vol] 0.4 mg/dL High <0.3 [facility] Comment on above: Performed By: #### M MERLE, CHM7, HFP, TSHQR ####[facility] (DEFAULT)[address] [facility] [place] [address] Protein [Mass/Vol] 6.0 g/dL Low 6.4-8.3 [facility] Comment on above: Performed By: #### M MERLE, CHM7, HFP, TSHQR ####[facility] (DEFAULT)[address] [place] [address] Albumin [Mass/Vol] 3.5 g/dL 3.5 - 5.0 g/dL [facility] ALP [Catalytic activity/Vol] 70 U/L 32 - 126 U/L [facility] ALT [Catalytic activity/Vol] 8 U/L Low 10 - 52 U/L [facility] AST [Catalytic activity/Vol] 20 U/L 10 - 39 U/L [facility] Bilirubin [Mass/Vol] 1.7 mg/dL High NINF - 1.5 mg/dL [facility] Bilirubin.direct [Mass/Vol] 0.4 mg/dL High NINF - 0.3 mg/dL [facility] Protein [Mass/Vol] 6.0 g/dL Low 6.4 - 8.3 g/dL [facility] MAGNESIUMon 01-18-2024 Magnesium [Mass/Vol] 1.5 mg/dL Low 1.6-2.6 [facility] Comment on above: Performed By: #### M GO, CHM7, HFP, TSHQR ####[facility] (DEFAULT)[address] [facility] [address] Magnesium [Mass/Vol] 1.5 mg/dL Low 1.6 - 2 .6 mg/dL [facility] No Panel Informationon 01-18 Interpretation and review of laboratory results Abnormal [facility] PT,INR,PTTon 01-18-2024 aPTT Coag (Bld) [Time] 30.0 s Normal 24.0-34.3 [facility] Comment on above: Performed By: #### P TPTT ####[facility] (DEFAULT)[address] [place] [address] INR Coag (PPP) [Relative time] 1.1 {INR} Normal 0.9-1.1 [facility] Comment on above: Performed By: #### P TPTT ####[facility] (DEFAULT)[address] [place] [address] PT Coag (PPP) [Time] 14.5 s High 11.9-14.2 [facility] Comment on above: Performed By: #### P TPTT ####[facility] (DEFAULT)[address] [place] [address], [place] [address] aPTT Coag (PPP) [Time] 30.[address] [facility] INR Coag (Bld) [Relative time] 1.1 {INR} 0.9 - 1.1 [facility] Interpretation and review of laboratory results Abnormal [facility] PT Coag (PPP) [Time] 14.5 s High [facility] TSH W/FT4 REFLEXon Interpretation and review of laboratory results Normal [facility] TSH Qn 2.660 m[IU]/L [facility] TSH 2.660 uIU/mL Normal 0.550-4.780 [facility] Comment on above: Performed By: #### M GO, CHM7, HFP, TSHQR ####[facility] (DEFAULT)[address] [place] [address] AFP TUMOR MARKERon AFP Tumor Marker <2.2 Normal <8.1 [facility] Comment on above: Result Comment: This test was performed on the [employer] IM Immunoassay platform by [employer] which is a two-site sandwich chemiluminescent immunoassay. It is important to note that assays using different manufacturers and/or methods may not be comparable. Performed By: #### A FPR ####[facility] (DEFAULT)[address] [place] [address] DARYL AURIS SCREEN BY PCRO rdered By: Mynor Alejandro on 01-17-2024 Daryl auris Screen by PCR Not detected Not Detected [facility] Interpretation and review of laboratory results Normal [facility] This test was perfor med using a real-time PCR assay. This test was developed, and its performance characteristics determined by [facility]. It has not been cleared or approved by the FDA. The laboratory is regulated under CLIA as qualified to perform high-complexity testing. This test is used for clinical purposes. It should not be regarded as investigational or for research. [facility] CBC,PLATELETSon 01-17-2024 Hematocrit (Bld) [Volume fraction] 37.2 % Low 39.6-48.8 [facility] Comment on above: Performed By: #### [facility] ####[facility] (DEFAULT)[address] [place] [address] Hemoglobin (Bld) [Mass/Vol] 12.0 g/dL Low 13.4-16.8 [facility] Comment on above: Performed By: #### [facility] ####[facility] (DEFAULT)[address] [place] [address] MCV (RBC) [Entitic vol] 86.5 fL Normal 79.0-94.5 [facility] Comment on above: Performed By: #### H EMOGC ####[facility] (DEFAULT)[address] [place] [address] Mean Cell Hgb 27.9 pg Normal 26.1-33.3 [facility] Comment on above: Performed By: #### H EMOGC ####[facility] (DEFAULT)[address] [place] [address] Mean Cell Hgb Conc 32.3 g/dL Normal 31.9-36.5 [facility] Comment on above: Performed By: #### H EMOGC ####[facility] (DEFAULT)[address] [facility] [place] [address] Platelet mean volume (Bld) [Entitic vol] 10.5 fL Normal 8.7-12.3 [facility] Comment on above: Performed By: #### H EMOGC ####[facility] (DEFAULT)[address] [place] [address] Platelets (Bld) [#/Vol] 159 10*3/uL Normal 146-337 [facility] Comment on above: Performed By: #### H EMOGC ####[facility] (DEFAULT)[address] [place] [address] RBC (Bld) [#/Vol] 4.30 10*6/uL Low 4.38-5.83 [facility] Comment on above: Performed By: #### H EMOGC ####[facility] (DEFAULT)[address] [place] [address] RBC Distribution 14.0 % Normal 10.9-14.3 [facility] Comment on above: Performed By: #### H EMOGC ####[facility] (DEFAULT)[address] [place] [address] WBC (Bld) [#/Vol] 3.69 10*3/uL Low 3.73-10.10 [facility] Comment on above: Performed By: #### [facility] ####[facility] (DEFAULT)[address] [place] [address] Erythrocyte distribution width (RBC) [Ratio] 14.0 % 10.9 - 14.3 % [facility] Hematocrit (Bld) [Volume fraction] 37.2 % Low 39.6 - 48.8 % [facility] Hemoglobin (Bld) [Mass/Vol] 12.0 g/dL Low 13.4 - 16.8 g/dL [facility] Interpretation and review of laboratory results Abnormal [facility] MCH (RBC) [Entitic mass] 27.9 pg 26.1 - 33.[address] [facility] MCHC (RBC) [Mass/Vol] 32.3 g/dL 31.9 - 36.5 g/dL [facility] MCV (RBC) [Entitic vol] 86.5 fL 79.0 - 94.[address] [facility] Platelet mean volume (Bld) [Entitic vol] 10.5 fL 8.7 - 12.[address] [facility] Platelets (Bld) [#/Vol] 159 10*3/uL 146 - 337 K/uL [facility] RBC (Bld) [#/Vol] 4.30 10*6/uL Low [facility] WBC (Bld) [#/Vol] 3.69 10*3/uL Low 3.73 - 10. 10 K/uL [facility] CHEM 7 (LYTES,BUN,CREA,GLUC) on 01-17-2024 Anion gap [Moles/Vol] 13 mmol/L Normal - [facility] Comment on above: Performed By: #### M GO, CHM7, [facility] ####[facility] (DEFAULT)[address] [place] [address] Chloride [Moles/Vol] 109 mmol/L High 98-108 [facility] Comment on above: Performed By: #### NATHANIEL RAMÍREZ, HFP ####[facility] (DEFAULT)[address] [facility] [place] [address] CO2 [Moles/Vol] 21 mmol/L Normal 21-31 [facility] Comment on above: Performed By: #### NATHANIEL RAMÍREZ, HFP ####[facility] (DEFAULT)[address] [facility] [place] [address] Creatinine [Mass/Vol] 1.04 mg/dL Normal 0.70-1.30 [facility] Comment on above: Performed By: #### NATHANIEL RAMÍREZ, HFP ####[facility] (DEFAULT)[address] [facility] [address] GFR/1.73 sq M.predicted among non-blacks MDRD (S/P/Bld) [Vol rate/Area] 86 mL/min/{1.73_m2} Normal >=60 [facility] Comment on above: Result Comment: Repo rted eGFR is based on the CKD-EPI 2020 equation using creatinine, age, and sex. Performed By: #### NATHANIEL RAMÍREZ, HFP ####[facility] (DEFAULT)[address] [facility] [place] [address] Glucose [Mass/Vol] 82 mg/dL Normal 70-99 [facility] Comment on above: Performed By: #### NATHANIEL RAMÍREZ, HFP ####[facility] (DEFAULT)[address] [place] [address] Osmolality [Osmolality] 292 mosm/kg Normal 278-305 [facility] Comment on above: Performed By: #### NATHANIEL RAMÍREZ, HFP ####[facility] (DEFAULT)[address] [facility] [place] [address] Potassium [Moles/Vol] 4.4 mmol/L Normal 3.5-5.0 [facility] Comment on above: Performed By: #### M HELEN BLOOMM7, HFP ####[facility] (DEFAULT)[address] [facility] [place] [address] Sodium [Moles/Vol] 139 mmol/L Normal 135-145 [facility] Comment on above: Performed By: #### M HELEN BLOOMM7, HFP ####[facility] (DEFAULT)[address] [facility] [place] [address] Urea nitrogen [Mass/Vol] 17 mg/dL Normal 7-25 [facility] Comment on above: Performed By: #### M HELEN BLOOMM7, HFP ####[facility] (DEFAULT)[address] [place] [address] Urea nitrogen/Creatinine [Mass ratio] 16 mg/mg Normal [facility] Comment on above: Performed By: #### TJ RAMÍREZ7, HFP ####[facility] (DEFAULT)[address] [place] [address] Anion gap [Moles/Vol] 13 mmol/L 7 - 17 mmol/L [facility] Chloride [Moles/Vol] 109 mmol/L High 98 - 10 8 mmol/L [facility] CO2 [Moles/Vol] 21 mmol/L 21 - 31 mmol/L [facility] Creatinine [Mass/Vol] 1.04 mg/dL 0.70 - 1.30 mg/dL [facility] eGFR, CKD-EPI, Male 86 - PINF [facility] Comment on above: Reported eGFR is bas ed on the CKD-EPI 2020 equation using creatinine, age, and sex. Glucose [Mass/Vol] 82 mg/dL 70 - 99 mg/dL [facility] Osmolality Calc [Osmolality] 292 [facility] Potassium [Moles/Vol] 4.4 mmol/L 3.5 - 5.0 mmol/L [facility] Sodium [Moles/Vol] 139 mmol/L 135 - 145 mmol/L [facility] Urea nitrogen [Mass/Vol] 17 mg/dL 7 - 25 mg/dL [facility] Urea nitrogen/Creatinine [Mass ratio] 16 mg/mg [facility] CT ABDOMEN/PELVIS WITHOUT CO NTRASTon 01-17-2024 CT ABDOMEN/PELVIS WITHOUT CONTRAST Normal [facility] CT Abdomen and [...] unremarkable. Kidneys: Severe atrophy of the bilateral [place] kidney is without hydronephrosis. Right lower quadrant [...] unremarkable. Kidneys: Severe atrophy of the bilateral [place] kidney is without hydronephrosis. Right lower quadrant [...] the middle lobe. Trace left pleural effusion. [facility] Radiology Study observation (narrative) [facility] HEPATIC FUNCTION PANELon Albumin [Mass/Vol] 3.5 g/dL Normal 3.5-5.0 [facility] Comment on above: Performed By: #### M HELEN BLOOMM7, HFP ####[facility] (DEFAULT)[address] [place] [address] ALP [Catalytic activity/Vol] 73 U/L Normal 32-126 [facility] Comment on above: Performed By: #### M MERLE CHM7, HFP ####[facility] (DEFAULT)[address] [place] [address] ALT [Catalytic activity/Vol] 7 U/L Low 10-52 [facility] Comment on above: Performed By: #### M NATHANIEL BLOOM, HFP ####[facility] (DEFAULT)[address] [place] [address] AST [Catalytic activity/Vol] 25 U/L Normal 10-39 [facility] Comment on above: Performed By: #### M NATHANIEL BLOOM, HFP ####[facility] (DEFAULT)[address] [place] [address] Bilirubin [Mass/Vol] 1.8 mg/dL High <1.5 [facility] Comment on above: Performed By: #### M NATHANIEL BLOOM, HFP ####[facility] (DEFAULT)[address] [place] [address] Bilirubin.indirect [Mass/Vol] 0.3 mg/dL High <0.3 [facility] Comment on above: Performed By: #### NATHANIEL RAMÍREZ, HFP ####[facility] (DEFAULT)[address] [place] [address] Protein [Mass/Vol] 6.0 g/dL Low 6.4-8.3 [facility] Comment on above: Performed By: #### NATHANIEL RAMÍREZ, HFP ####[facility] (DEFAULT)[address] [place] [address] Albumin [Mass/Vol] 3.5 g/dL 3.5 - 5.0 g/dL [facility] ALP [Catalytic activity/Vol] 73 U/L 32 - 126 U/L [facility] ALT [Catalytic activity/Vol] 7 U/L Low 10 - 52 U/L [facility] AST [Catalytic activity/Vol] 25 U/L 10 - 39 U/L [facility] Bilirubin [Mass/Vol] 1.8 mg/dL High NINF - 1.5 mg/dL [facility] Bilirubin.direct [Mass/Vol] 0.3 mg/dL High NINF - 0.3 mg/dL [facility] Protein [Mass/Vol] 6.0 g/dL Low 6.4 - 8.3 g/dL [facility] HISTOPLASMA AND BLASTOMYCES ANTIGEN, ENZYME IMMUNOASSAY, SERMon 01-17-2024 Histoplasma/Blastomy antonia Ag Result Not detected Normal Not Detected [facility] Comment on above: Result Comment: No a ntigen from Histoplasma or Blastomyces detected. Falsenegative results may occur depending on extent of disease,and/or site of infection. Repeat testing on a new specimenif clinically indicated. Performed By: #### H CORAL ####[facility] (DEFAULT)[address] [place] [address] Histoplasma/Blastomy antonia Ag Value Not detected Normal [facility] Comment on above: Result Comment: ---- ADDITIONAL INFORMATION This test was developed and its performance characteristicsdetermined by [facility] in a manner consistent with CLIArequirements. This test has not been cleared or approved bythe U.S. Food and Drug Administration.Test Performed by:[place] [id number] Director: Rosendo Bose M.D. Ph.D.; CLIA# [id number] Performed By: #### H CORAL ####[facility] (DEFAULT)[address] [place] [address] MAGNESIUMon 01-17-2024 Magnesium [Mass/Vol] 1.7 mg/dL Normal 1.6-2.6 [facility] Comment on above: Performed By: #### Rod BLOOM, CHM7, [facility] ####[facility] (DEFAULT)[address] [place] [address] Interpretation and review of laboratory results Normal [facility] Magnesium [Mass/Vol] 1.7 mg/dL 1.6 - 2 .6 mg/dL [facility] No Panel Informationon 01-17 Interpretation and review of laboratory results Abnormal [facility] PT,INR,PTTon 01-17-2024 aPTT Coag (PPP) [Time] 29.[address] [facility] INR Coag (Bld) [Relative time] 1.1 {INR} 0.9 - 1.1 [facility] Interpretation and review of laboratory results Abnormal [facility] PT Coag (PPP) [Time] 14.5 s High [facility] aPTT Coag (Bld) [Time] 29.9 s Normal 24.0-34.3 [facility] Comment on above: Performed By: #### P TPTT ####[facility] (DEFAULT)[address] [place] [address] INR Coag (PPP) [Relative time] 1.1 {INR} Normal 0.9-1.1 [facility] Comment on above: Performed By: #### P TPTT ####[facility] (DEFAULT)[address] [place] [address] PT Coag (PPP) [Time] 14.5 s High 11.9-14.2 [facility] Comment on above: Performed By: #### P TPTT ####[facility] (DEFAULT)[address] [place] [address] B-TYPE NATRIURETIC PEPTIDE ( BRAIN)on 01-16-2024 Interpretation and review of laboratory results Abnormal [facility] Natriuretic peptide B (Bld) [Mass/Vol] 212 pg/mL High 0 - 100 pg/mL [facility] Natriuretic peptide B (Bld) [Mass/Vol] 212 pg/mL High 0-100 [facility] Comment on above: Performed By: #### B [employer] ####[facility] (DEFAULT)[address] [place] [address] CALCIUMon 01-16-2024 Calcium [Mass/Vol] 8.5 mg/dL Low 8.6-10.5 [facility] Comment on above: Performed By: #### C A, MGO, CHM7, HFP, IPB ####[facility] (DEFAULT)[address] [place] [address] Calcium [Mass/Vol] 8.5 mg/dL Low 8.6 - 10. 5 mg/dL [facility] DARYL AURIS SCREEN BY PCRo n 01-16-2024 Daryl auris Screen by PCR Not detected Normal Not Detected [facility] Comment on above: Order Comment: This test was performed using a real-time PCR assay. This test was developed, and its performance characteristics determined by [facility]. It has not been cleared or approved by the FDA. The laboratory is regulated under CLIA as qualified to perform high-complexity testing. This test is used for clinical purposes. It should not be regarded as investigational or for research. Performed By: #### C ANDIDA AURIS SCREEN BY PCR ####[facility] (DEFAULT)[address] [facility] [place] [address] CBC AND ELECTRONIC DIFFon Abs Baso Auto < Normal 0.00-0.09 [facility] Comment on above: Performed By: #### L [id number] ####[facility] (DEFAULT)[address] [place] [address] Basophils/100 WBC (Bld) 0.6 % Normal [facility] Comment on above: Performed By: #### L AB980 ####[facility] (DEFAULT)[address] [facility] [place] [address] DIFF STATUS Electronic Differential Normal [facility] Comment on above: Performed By: #### L [id number] ####[facility] (DEFAULT)[address] [facility] [place] [address] Eosinophils (Bld) [#/Vol] 0.09 10*3/uL Normal 0.00-0.48 [facility] Comment on above: Performed By: #### L AB980 ####[facility] (DEFAULT)[address] [facility] [place] [address] Eosinophils/100 WBC (Bld) 2.5 % Normal [facility] Comment on above: Performed By: #### L AB980 ####[facility] (DEFAULT)[address] [facility] [place] [address] Hematocrit (Bld) [Volume fraction] 37.4 % Low 39.6-48.8 [facility] Comment on above: Performed By: #### L AB980 ####[facility] (DEFAULT)[address] [facility] [place] [address] Hemoglobin (Bld) [Mass/Vol] 12.1 g/dL Low 13.4-16.8 [facility] Comment on above: Performed By: #### L AB980 ####[facility] (DEFAULT)[address] [place] [address] Immature Grans % 0.3 % Normal [facility] Comment on above: Performed By: #### L [id number] ####[facility] (DEFAULT)[address] [place] [address] Immature Grans Absolute < Normal <=0.07 [facility] Comment on above: Performed By: #### L [id number] ####[facility] (DEFAULT)[address] [place] [address] Lymphocytes (Bld) [#/Vol] 1.16 10*3/uL Normal 0.83-3.57 [facility] Comment on above: Performed By: #### L [id number] ####[facility] (DEFAULT)[address] [place] [address] Lymphocytes/100 WBC (Bld) 32.0 % Normal [facility] Comment on above: Performed By: #### L [id number] ####[facility] (DEFAULT)[address] [place] [address] MCV (RBC) [Entitic vol] 87.8 fL Normal 79.0-94.5 [facility] Comment on above: Performed By: #### L [id number] ####[facility] (DEFAULT)[address] [place] [address] Mean Cell Hgb 28.4 pg Normal 26.1-33.3 [facility] Comment on above: Performed By: #### L [id number] ####[facility] (DEFAULT)[address] [place] [address] Mean Cell Hgb Conc 32.4 g/dL Normal 31.9-36.5 [facility] Comment on above: Performed By: #### L [id number] ####[facility] (DEFAULT)[address] [place] [address] Monocytes (Bld) [#/Vol] 0.43 10*3/uL Normal 0.24-0.93 [facility] Comment on above: Performed By: #### L [id number] ####[facility] (DEFAULT)[address] [facility] [place] [address] Monocytes/100 WBC (Bld) 11.9 % Normal [facility] Comment on above: Performed By: #### L [id number] ####[facility] (DEFAULT)[address] [place] [address] Nucleated RBC 0.0 /100 WBC Normal <=0.2 [facility] Comment on above: Performed By: #### L [id number] ####[facility] (DEFAULT)[address] [facility] [place] [address] Platelet mean volume (Bld) [Entitic vol] 10.1 fL Normal 8.7-12.3 [facility] Comment on above: Performed By: #### L [id number] ####[facility] (DEFAULT)[address] [place] [address] Platelets (Bld) [#/Vol] 155 10*3/uL Normal 146-337 [facility] Comment on above: Performed By: #### L [id number] ####[facility] (DEFAULT)[address] [place] [address] RBC (Bld) [#/Vol] 4.26 10*6/uL Low 4.38-5.83 [facility] Comment on above: Performed By: #### L [id number] ####[facility] (DEFAULT)[address] [facility] [place] [address] RBC Distribution 14.0 % Normal 10.9-14.3 [facility] Comment on above: Performed By: #### L [id number] ####[facility] (DEFAULT)[address] [place] [address] Segs + Bands Auto 52.7 % Normal [facility] Comment on above: Performed By: #### L AB980 ####[facility] (DEFAULT)[address] [place] [address] Segs + Bands,Absolute Auto 1.91 K/uL Normal 1.57-6.19 [facility] Comment on above: Performed By: #### L [id number] ####[facility] (DEFAULT)[address] [place] [address] WBC (Bld) [#/Vol] 3.62 10*3/uL Low 3.73-10.10 [facility] Comment on above: Performed By: #### L [id number] ####[facility] (DEFAULT)[address] [place] [address] Basophils (Bld) [#/Vol] K/uL 0.00 - 0.09 K/uL [facility] Basophils/100 WBC (Bld) 0.6 % [facility] Differential cell count method Nom (Bld) Electronic Differential [facility] Eosinophils (Bld) [#/Vol] 0.09 10*3/uL 0.00 - 0.48 K/uL [facility] Eosinophils/100 WBC (Bld) 2.5 % [facility] Erythrocyte distribution width (RBC) [Ratio] 14.0 % 10.9 - 14.3 % [facility] Hematocrit (Bld) [Volume fraction] 37.4 % Low 39.6 - 48.8 % [facility] Hemoglobin (Bld) [Mass/Vol] 12.1 g/dL Low 13.4 - 16.8 g/dL [facility] Immature granulocytes (Bld) [#/Vol] K/uL NINF - 0.07 K/uL [facility] Immature granulocytes/100 WBC (Bld) 0.3 % [facility] Interpretation and review of laboratory results Abnormal [facility] Lymphocytes (Bld) [#/Vol] 1.16 10*3/uL 0.83 - 3.57 K/uL [facility] Lymphocytes/100 WBC (Bld) 32.0 % [facility] MCH (RBC) [Entitic mass] 28.4 pg 26.1 - 33.[address] [facility] MCHC (RBC) [Mass/Vol] 32.4 g/dL 31.9 - 36.5 g/dL [facility] MCV (RBC) [Entitic vol] 87.8 fL 79.0 - 94.[address] [facility] Monocytes (Bld) [#/Vol] 0.43 10*3/uL 0.24 - 0.93 K/uL [facility] Monocytes/100 WBC (Bld) 11.9 % [facility] Neutrophils (Bld) [#/Vol] 1.91 10*3/uL 1.57 - 6.19 K/uL [facility] Nucleated RBC/100 WBC (Bld) [Ratio] 0.0 % [facility] Platelet mean volume (Bld) [Entitic vol] 10.1 fL 8.7 - 12.[address] [facility] Platelets (Bld) [#/Vol] 155 10*3/uL 146 - 337 K/uL [facility] RBC (Bld) [#/Vol] 4.26 10*6/uL Low [facility] Segmented neutrophils/100 WBC (Bld) 52.7 % [facility] WBC (Bld) [#/Vol] 3.62 10*3/uL Low 3.73 - 10. 10 K/uL [facility] CHEM 7 (LYTES,BUN,CREA,GLUC) on 01-16-2024 Anion gap [Moles/Vol] 11 mmol/L Normal 7-17 [facility] Comment on above: Performed By: #### C A, MGO, CHM7, HFP, IPB ####[facility] (DEFAULT)[address] [place] [address] Chloride [Moles/Vol] 108 mmol/L Normal 98-108 [facility] Comment on above: Performed By: #### C A, MGO, CHM7, HFP, IPB ####[facility] (DEFAULT)[address] [place] [address] CO2 [Moles/Vol] 24 mmol/L Normal 21-31 [facility] Comment on above: Performed By: #### C A, MGO, CHM7, HFP, IPB ####[facility] (DEFAULT)[address] [place] [address] Creatinine [Mass/Vol] 1.04 mg/dL Normal 0.70-1.30 [facility] Comment on above: Performed By: #### C A, MGO, CHM7, HFP, IPB ####[facility] (DEFAULT)[address] [place] [address] GFR/1.73 sq M.predicted among non-blacks MDRD (S/P/Bld) [Vol rate/Area] 86 mL/min/{1.73_m2} Normal >=60 [facility] Comment on above: Result Comment: Repo rted eGFR is based on the CKD-EPI 2020 equation using creatinine, age, and sex. Performed By: #### C A, MGO, CHM7, HFP, IPB ####[facility] (DEFAULT)[address] [place] [address] Glucose [Mass/Vol] 95 mg/dL Normal 70-99 [facility] Comment on above: Performed By: #### C Tray, MGO, CHM7, HFP, IPB ####[facility] (DEFAULT)[address] [place] [address] Osmolality [Osmolality] 293 mosm/kg Normal 278-305 [facility] Comment on above: Performed By: #### C Tray, MGO, CHM7, HFP, IPB ####[facility] (DEFAULT)[address] [place] [address] Potassium [Moles/Vol] 4.0 mmol/L Normal 3.5-5.0 [facility] Comment on above: Performed By: #### C Tray, MGO, CHM7, HFP, IPB ####[facility] (DEFAULT)[address] [place] [address] Sodium [Moles/Vol] 139 mmol/L Normal 135-145 [facility] Comment on above: Performed By: #### C Tray, MGO, CHM7, HFP, IPB ####[facility] (DEFAULT)[address] [place] [address] Urea nitrogen [Mass/Vol] 19 mg/dL Normal 7-25 [facility] Comment on above: Performed By: #### C A, MGO, CHM7, HFP, IPB ####[facility] (DEFAULT)[address] [place] [address] Urea nitrogen/Creatinine [Mass ratio] 18 mg/mg Normal [facility] Comment on above: Performed By: #### C A, MGO, CHM7, HFP, IPB ####[facility] (DEFAULT)[address] [place] [address] Anion gap [Moles/Vol] 11 mmol/L 7 - 17 mmol/L [facility] Chloride [Moles/Vol] 108 mmol/L 98 - 10 8 mmol/L [facility] CO2 [Moles/Vol] 24 mmol/L 21 - 31 mmol/L [facility] Creatinine [Mass/Vol] 1.04 mg/dL 0.70 - 1.30 mg/dL [facility] eGFR, CKD-EPI, Male 86 - PINF [facility] Comment on above: Reported eGFR is bas ed on the CKD-EPI 2020 equation using creatinine, age, and sex. Glucose [Mass/Vol] 95 mg/dL 70 - 99 mg/dL [facility] Osmolality Calc [Osmolality] 293 [facility] Potassium [Moles/Vol] 4.0 mmol/L 3.5 - 5.0 mmol/L [facility] Sodium [Moles/Vol] 139 mmol/L 135 - 145 mmol/L [facility] Urea nitrogen [Mass/Vol] 19 mg/dL 7 - 25 mg/dL [facility] Urea nitrogen/Creatinine [Mass ratio] 18 mg/mg [facility] D-DIMER,QUANTITATIVEon 01-16 D-Dimer, High Sensitivity 0.67 mcg/mL FEU High <0.50 [facility] Comment on above: Result Comment: The D-Dimer assay is intended for use in conjuction with a clinical pretest probability (PTP) assessment model to exclude pulmonary embolism (PE) and as an aid in the diagnosis of Deep Vein Thrombosis (DVT) in outpatients suspected of PE or DVT. For the assay in use at [facility] ([facility]), a cutoff of <0.50 mcg/mL has a Negative Predictive Value of 99.7% for exclusion of DVT in low and moderate PTP patients. Performed By: #### P TPTT, HSDDI ####[facility] (DEFAULT)[address] [place] [address] D-DIMER,QUANTITATIVEOrdered By: Shaji Kelly on 01-16-2024 Fibrin D-dimer FEU (PPP) [Mass/Vol] 0.[address] [facility] Comment on above: The D-Dimer assay is intended for use in conjuction with a clinical pretest probability (PTP) assessment model to exclude pulmonary embolism (PE) and as an aid in the diagnosis of Deep Vein Thrombosis (DVT) in outpatients suspected of PE or DVT. For the assay in use at [facility] ([facility]), a cutoff of <0.50 mcg/mL has a Negative Predictive Value of 99.7% for exclusion of DVT in low and moderate PTP patients. Interpretation and review of laboratory results Abnormal [facility] HEPATIC FUNCTION PANELon Albumin [Mass/Vol] 3.7 g/dL Normal 3.5-5.0 [facility] Comment on above: Performed By: #### C A, MGO, CHM7, HFP, IPB ####[facility] (DEFAULT)[address] [place] [address] ALP [Catalytic activity/Vol] 70 U/L Normal 32-126 [facility] Comment on above: Performed By: #### C A, MGO, CHM7, HFP, IPB ####[facility] (DEFAULT)[address] [place] [address] ALT [Catalytic activity/Vol] 8 U/L Low 10-52 [facility] Comment on above: Performed By: #### C A, MGO, CHM7, HFP, IPB ####[facility] (DEFAULT)[address] [place] [address] AST [Catalytic activity/Vol] 21 U/L Normal 10-39 [facility] Comment on above: Performed By: #### C A, MGO, CHM7, HFP, IPB ####[facility] (DEFAULT)[address] [facility] [place] [address] Bilirubin [Mass/Vol] 1.9 mg/dL High <1.5 [facility] Comment on above: Performed By: #### C A, MGO, CHM7, HFP, IPB ####[facility] (DEFAULT)[address] [place] [address] Bilirubin.indirect [Mass/Vol] 0.4 mg/dL High <0.3 [facility] Comment on above: Performed By: #### DOMENICA Willis CHM7, HFP, IPB ####[facility] (DEFAULT)[address] [place] [address] Protein [Mass/Vol] 6.1 g/dL Low 6.4-8.3 [facility] Comment on above: Performed By: #### C DOMENICA Feliz CHM7, HFP, IPB ####[facility] (DEFAULT)[address] [place] [address] Albumin [Mass/Vol] 3.7 g/dL 3.5 - 5.0 g/dL [facility] ALP [Catalytic activity/Vol] 70 U/L 32 - 126 U/L [facility] ALT [Catalytic activity/Vol] 8 U/L Low 10 - 52 U/L [facility] AST [Catalytic activity/Vol] 21 U/L 10 - 39 U/L [facility] Bilirubin [Mass/Vol] 1.9 mg/dL High NINF - 1.5 mg/dL [facility] Bilirubin.direct [Mass/Vol] 0.4 mg/dL High NINF - 0.3 mg/dL [facility] Protein [Mass/Vol] 6.1 g/dL Low 6.4 - 8.3 g/dL [facility] MAGNESIUMon 01-16-2024 Magnesium [Mass/Vol] 1.7 mg/dL Normal 1.6-2.6 [facility] Comment on above: Performed By: #### C DOMENICA Feliz, HELENMJessica, HFP, IPB ####[facility] (DEFAULT)[address] [place] [address] Magnesium [Mass/Vol] 1.7 mg/dL 1.6 - 2 .6 mg/dL [facility] No Panel Informationon 01-16 Interpretation and review of laboratory results Abnormal [facility] Interpretation and review of laboratory results Normal [facility] [place] PHOSPHATE, INORGANICon 01-16 Phosphorous 4.1 mg/dL Normal 2.2-4.6 [facility] Comment on above: Performed By: #### C A, MGO, CHM7, HFP, IPB ####[facility] (DEFAULT)[address] [place] [address] Phosphate [Mass/Vol] 4.1 mg/dL 2.2 - 4 .6 mg/dL [facility] PT,INR,PTTon 01-16-2024 aPTT Coag (Bld) [Time] 29.6 s Normal 24.0-34.3 [facility] Comment on above: Performed By: #### P TPTT, HSDDI ####[facility] (DEFAULT)[address] [facility] [place] [address] INR Coag (PPP) [Relative time] 1.2 {INR} High 0.9-1.1 [facility] Comment on above: Performed By: #### P TPTT, HSDDI ####[facility] (DEFAULT)[address] [facility] [place] [address] PT Coag (PPP) [Time] 14.9 s High 11.9-14.2 [facility] Comment on above: Performed By: #### P TPTT, HSDDI ####[facility] (DEFAULT)[address] [place] [address] aPTT Coag (PPP) [Time] 29.[address] [facility] INR Coag (Bld) [Relative time] 1.2 {INR} High 0.9 - 1.1 [facility] Interpretation and review of laboratory results Abnormal [facility] PT Coag (PPP) [Time] 14.9 s High [facility] [place] TACROLIMUS LEVEL, TROUGH (ND E DRUG LEVEL)Ordered By: Jimy Castillo on 01-16-2024 Interpretation and review of laboratory results Normal [facility] Tacrolimus (Bld) [Mass/Vol] 5.7 ng/mL Bone Marrow Transplant: 4.0-12.0, Therapeutic: 5.0-15.0 [facility] Method performed is a chemiluminescent microparticle immunoasssay on the [employer] i2000. The range is based on experience at [facility] and users should be aware that target concentrations vary widely depending on concomitant therapy, time post-transplant, and desired degree of immunosuppression. [facility] [place] TACROLIMUS LEVEL, TROUGH (ND E DRUG LEVEL)on 01-16-2024 Tacrolimus, Trough 5.7 ng/mL Normal Bone Susana ow Transplant: 4.0-12.0, Therapeutic: 5.0-15.0 [facility] Comment on above: Order Comment: Pleas e draw at specified interval PRIOR to dose. Do not hold dose to wait for level. Specimens batched twice per day, (M-F) and once per day weekendsMethod performed is a chemiluminescent microparticle immunoasssay on the [employer] i2000.The range is based on experience at [facility] and users should be aware that target concentrations vary widely depending on concomitant therapy, time post-transplant, and desired degree of immunosuppression. Performed By: #### T ACRO ####[facility] (DEFAULT)[address] [place] [address] US ABDOMEN LIVER DOPPLERon 0 01-16-2024 US ABDOMEN LIVER DOPPLER Normal [facility] US.doppler Abdominal vessels on 01-16-2024 IMPRESSION: [...] pleural effusion. Trace right upper quadrant ascites. [facility] Radiology Study observation (narrative) [facility] US.doppler Abdominal vessels Ordered By: Iona Duran on 01-16-2024 [facility] Work Phone: XR CHEST PA AND LATERAL 2 EWSon 01-16-2024 XR CHEST PA AND LATERAL 2 VIEWS Normal [facility] XR Chest PA and Lateralon IMPRESSION: [...] Normal IMPRESSION IMPRESSION: Moderate right pleural effusion. [facility] Radiology Study observation (narrative) [facility] XR Chest PA and LateralOrder ed By: Daisha Patterson on 01-16-2024 [facility] Work Phone: ALL CBC WITH AUTO DIFFon BASOPHILS ABSOLUTE AUTO 0.0 [facility] Basophils/100 WBC (Bld) 0.5 % 0.2 - 2.0 % [facility] Eosinophils/100 WBC (Bld) 2.8 % 0.9 - 7.0 % [facility] Erythrocyte distribution width (RBC) [Ratio] 13.8 % 11.0 - 15.0 % [facility] Hematocrit (Bld) [Volume fraction] 43.7 % 42.0 - 54.0 % [facility] Hemoglobin (Bld) [Mass/Vol] 14.0 g/dL 14.0 - 18.0 g/dL [facility] IMMATURE GRANULOCYTES ABS AUTO 0.01 [facility] Immature granulocytes/100 WBC (Bld) 0.3 % 0.0 - 0.5 % [facility] LYMPHOCYTES ABSOLUTE AUTO 1.5 [facility] Lymphocytes/100 WBC (Bld) 37.5 % 20.5 - 60.0 % [facility] MCH (RBC) [Entitic mass] 28.4 pg 25.9 - 34.0 pg [facility] MCHC (RBC) [Mass/Vol] 32.0 g/dL 29.9 - 35.2 g/dL [facility] MCV (RBC) [Entitic vol] 88.6 fL 80.0 - 94.0 fL [facility] MONOCYTES ABSOLUTE AUTO 0.5 [facility] Monocytes/100 WBC (Bld) 11.9 % 1.7 - 12.0 % [facility] NEUTROPHILS ABSOLUTE AUTO 1.9 [facility] Neutrophils/100 WBC (Bld) 47.0 % 43.0 - 75.0 % [facility] Platelet mean volume (Bld) [Entitic vol] 10.3 fL 9.5 - 13.5 fL [facility] TBH EO # 0.1 [facility] TB PLT [address] [facility] RBC 4.93 [facility] TB WBC 4.0 [facility] ALL CBC WITH AUTO DIFFon BASOPHILS ABSOLUTE AUTO 0.0 [facility] Basophils/100 WBC (Bld) 0.5 % 0.2 - 2.0 % [facility] Eosinophils/100 WBC (Bld) 2.6 % 0.9 - 7.0 % [facility] Erythrocyte distribution width (RBC) [Ratio] 13.5 % 11.0 - 15.0 % [facility] Hematocrit (Bld) [Volume fraction] 43.8 % 42.0 - 54.0 % [facility] Hemoglobin (Bld) [Mass/Vol] 14.0 g/dL 14.0 - 18.0 g/dL [facility] IMMATURE GRANULOCYTES ABS AUTO 0.00 [facility] Immature granulocytes/100 WBC (Bld) 0.0 % 0.0 - 0.5 % [facility] Interpretation and review of laboratory results Abnormal [facility] LYMPHOCYTES ABSOLUTE AUTO 1.8 [facility] Lymphocytes/100 WBC (Bld) 45.2 % 20.5 - 60.0 % [facility] MCH (RBC) [Entitic mass] 27.9 pg 25.9 - 34.0 pg [facility] MCHC (RBC) [Mass/Vol] 32.0 g/dL 29.9 - 35.2 g/dL [facility] MCV (RBC) [Entitic vol] 87.4 fL 80.0 - 94.0 fL [facility] MONOCYTES ABSOLUTE AUTO 0.4 [facility] Monocytes/100 WBC (Bld) 9.6 % 1.7 - 12.0 % [facility] NEUTROPHILS ABSOLUTE AUTO 1.6 [facility] Neutrophils/100 WBC (Bld) 42.1 % Low 43.0 - 75.0 % [facility] Platelet mean volume (Bld) [Entitic vol] 9.8 fL 9.5 - 13.5 fL [facility] TBH EO # 0.1 [facility] TBH PLT 180 [facility] TB RBC 5.01 [facility] TB WBC 3.9 Low [facility] CHEM 7 (LYTES,BUN,CREA,GLUC) on 09-11-2023 Anion gap [Moles/Vol] 13 mmol/L Normal 7-17 [facility] Comment on above: Performed By: #### NATHANIEL RAMÍREZ ####[facility] (DEFAULT)[address] [place] [address] Chloride [Moles/Vol] 111 mmol/L High 98-108 [facility] Comment on above: Performed By: #### NATHANIEL RAMÍREZ ####[facility] (DEFAULT)[address] [place] [address] CO2 [Moles/Vol] 20 mmol/L Low 21-31 [facility] Comment on above: Performed By: #### Rod BLOOM CHM7 ####[facility] (DEFAULT)[address] [place] [address] Creatinine [Mass/Vol] 1.13 mg/dL Normal 0.70-1.30 [facility] Comment on above: Performed By: #### TJ RAMÍREZ7 ####[facility] (DEFAULT)[address] [facility] [place] [address] GFR/1.73 sq M.predicted among non-blacks MDRD (S/P/Bld) [Vol rate/Area] 78 mL/min/{1.73_m2} Normal >=60 [facility] Comment on above: Result Comment: Repo rted eGFR is based on the CKD-EPI 2020 equation using creatinine, age, and sex. Performed By: #### TJ RAMÍREZ7 ####[facility] (DEFAULT)[address] [facility] [place] [address] Glucose [Mass/Vol] 109 mg/dL High 70-99 [facility] Comment on above: Performed By: #### TJ RAMÍREZ7 ####[facility] (DEFAULT)[address] [facility] [place] [address] Osmolality [Osmolality] 295 mosm/kg Normal 278-305 [facility] Comment on above: Performed By: #### TJ RAMÍREZ7 ####[facility] (DEFAULT)[address] [facility] [place] [address] Potassium [Moles/Vol] 4.3 mmol/L Normal 3.5-5.0 [facility] Comment on above: Performed By: #### TJ RAMÍREZ7 ####[facility] (DEFAULT)[address] [facility] [place] [address] Sodium [Moles/Vol] 140 mmol/L Normal 135-145 [facility] Comment on above: Performed By: #### Rod BLOOM CHM7 ####[facility] (DEFAULT)[address] [place] [address] Urea nitrogen [Mass/Vol] 16 mg/dL Normal 7-25 [facility] Comment on above: Performed By: #### Rod BLOOM CHM7 ####[facility] (DEFAULT)[address] [place] [address] Urea nitrogen/Creatinine [Mass ratio] 14 mg/mg Normal [facility] Comment on above: Performed By: #### Rod BLOOM CHM7 ####[facility] (DEFAULT)[address] [place] [address] Anion gap [Moles/Vol] 13 mmol/L 7 - 17 mmol/L [facility] Chloride [Moles/Vol] 111 mmol/L High 98 - 10 8 mmol/L [facility] CO2 [Moles/Vol] 20 mmol/L Low 21 - 31 mmol/L [facility] Creatinine [Mass/Vol] 1.13 mg/dL 0.70 - 1.30 mg/dL [facility] eGFR, CKD-EPI, Male 78 - PINF [facility] Glucose [Mass/Vol] 109 mg/dL High 70 - 99 mg/dL [facility] Interpretation and review of laboratory results Abnormal [facility] Osmolality Calc [Osmolality] 295 [facility] Potassium [Moles/Vol] 4.3 mmol/L 3.5 - 5.0 mmol/L [facility] Sodium [Moles/Vol] 140 mmol/L 135 - 145 mmol/L [facility] Urea nitrogen [Mass/Vol] 16 mg/dL 7 - 25 mg/dL [facility] Urea nitrogen/Creatinine [Mass ratio] 14 mg/mg [facility] GLUCOSE POCon 09-11-2023 Glucose [Mass/Vol] 108 mg/dL High 70 - 99 mg/dL [facility] Interpretation and review of laboratory results Abnormal [facility] POC Sample Type CAPBL [facility] Legionella sp identified Org specific cx Nom (Unsp spec)on 09-11-2023 Bacteria identified Cx Nom (Unsp spec) NO GROWTH DAY 7 OF 7 [facility] MAGNESIUMon 09-11-2023 Magnesium [Mass/Vol] 1.6 mg/dL Normal 1.6-2.6 [facility] Comment on above: Performed By: #### M MERLE CHM7 ####[facility] (DEFAULT)[address] [place] [address] Interpretation and review of laboratory results Normal [facility] Magnesium [Mass/Vol] 1.6 mg/dL 1.6 - 2 .6 mg/dL [facility] No Panel Informationon 09-11 [facility] TACROLIMUS LEVEL, TROUGH (ND E DRUG LEVEL)on 09-11-2023 Interpretation and review of laboratory results Normal [facility] Tacrolimus (Bld) [Mass/Vol] 11.5 ng/mL [facility] Tacrolimus, Trough 11.5 ng/mL Normal Bone Susana ow Transplant: 4.0-12.0, Therapeutic: 5.0-15.0 [facility] Comment on above: Order Comment: Pleas e draw at specified interval PRIOR to dose. Do not hold dose to wait for level. Specimens batched twice per day, (M-F) and once per day weekendsMethod performed is a chemiluminescent microparticle immunoasssay on the [employer] i2000.The range is based on experience at [facility] and users should be aware that target concentrations vary widely depending on concomitant therapy, time post-transplant, and desired degree of immunosuppression. Performed By: #### T ACRO ####[facility] (DEFAULT)[address] [place] [address] CBC,PLATELETSon 09-10-2023 Hematocrit (Bld) [Volume fraction] 40.0 % Normal 39.6-48.8 [facility] Comment on above: Performed By: #### H EMOGC ####[facility] (DEFAULT)[address] [facility] [place] [address] Hemoglobin (Bld) [Mass/Vol] 12.7 g/dL Low 13.4-16.8 [facility] Comment on above: Performed By: #### H EMOGC ####[facility] (DEFAULT)[address] [facility] [place] [address] MCV (RBC) [Entitic vol] 86.0 fL Normal 79.0-94.5 [facility] [facility] Comment on above: Performed By: #### H EMOGC ####[facility] (DEFAULT)[address] [facility] [place] [address] Mean Cell Hgb 27.3 pg Normal 26.1-33.3 [facility] Comment on above: Performed By: #### H EMOGC ####[facility] (DEFAULT)[address] [facility] [place] [address] Mean Cell Hgb Conc 31.8 g/dL Low 31.9-36.5 [facility] Comment on above: Performed By: #### H EMOGC ####[facility] (DEFAULT)[address] [facility] [place] [address] Platelet mean volume (Bld) [Entitic vol] 9.5 fL Normal 8.7-12.3 [facility] Comment on above: Performed By: #### H EMOGC ####[facility] (DEFAULT)[address] [place], [place] [address], [place] [address] Platelets (Bld) [#/Vol] 225 10*3/uL Normal 146-337 [facility] Comment on above: Performed By: #### H EMOGC ####[facility] (DEFAULT)[address] [facility] [place] [address] RBC (Bld) [#/Vol] 4.65 10*6/uL Normal 4.38-5.83 [facility] Comment on above: Performed By: #### [facility] ####[facility] (DEFAULT)[address] [place] [address] RBC Distribution 13.9 % Normal 10.9-14.3 [facility] Comment on above: Performed By: #### H EMO ####[facility] (DEFAULT)[address] [place] [address] WBC (Bld) [#/Vol] 6.52 10*3/uL Normal 3.73-10.10 [facility] Comment on above: Performed By: #### [facility] ####[facility] (DEFAULT)[address] [place] [address] Erythrocyte distribution width (RBC) [Ratio] 13.9 % 10.9 - 14.3 % [facility] Hematocrit (Bld) [Volume fraction] 40.0 % 39.6 - 48.8 % [facility] Hemoglobin (Bld) [Mass/Vol] 12.7 g/dL Low 13.4 - 16.8 g/dL [facility] Interpretation and review of laboratory results Abnormal [facility] MCH (RBC) [Entitic mass] 27.3 pg 26.1 - 33.[address] [facility] MCHC (RBC) [Mass/Vol] 31.8 g/dL Low 31.9 - 36.5 g/dL [facility] MCV (RBC) [Entitic vol] 86.0 fL 79.0 - 94.[address] [facility] Platelet mean volume (Bld) [Entitic vol] 9.5 fL 8.7 - 12.[address] [facility] Platelets (Bld) [#/Vol] 225 10*3/uL 146 - 337 K/uL [facility] RBC (Bld) [#/Vol] 4.65 10*6/uL [facility] WBC (Bld) [#/Vol] 6.52 10*3/uL 3.73 - 10. 10 K/[facility]L [facility] CHEM 7 (LYTES,BUN,CREA,GLUC) on 09-10-2023 Anion gap [Moles/Vol] 13 mmol/L Normal 7-17 [facility] Comment on above: Performed By: #### Rod BLOOM CHM7, HFP ####[facility] (DEFAULT)[address] [place] [address] Chloride [Moles/Vol] 111 mmol/L High 98-108 [facility] Comment on above: Performed By: #### Rod BLOOM CHM7, HFP ####[facility] (DEFAULT)[address] [facility] [place] [address] CO2 [Moles/Vol] 20 mmol/L Low 21-31 [facility] Comment on above: Performed By: #### Rod BLOOM CHM7, HFP ####[facility] (DEFAULT)[address] [facility] [place] [address] Creatinine [Mass/Vol] 1.27 mg/dL Normal 0.70-1.30 [facility] Comment on above: Performed By: #### Rod BLOOM CHM7, HFP ####[facility] (DEFAULT)[address] [place] [address] GFR/1.73 sq M.predicted among non-blacks MDRD (S/P/Bld) [Vol rate/Area] 68 mL/min/{1.73_m2} Normal >=60 [facility] Comment on above: Result Comment: Repo rted eGFR is based on the CKD-EPI 2020 equation using creatinine, age, and sex. Performed By: #### Rod BLOOM CHM7, HFP ####[facility] (DEFAULT)[address] [facility] [place] [address] Glucose [Mass/Vol] 100 mg/dL High 70-99 [facility] Comment on above: Performed By: #### Rod BLOOM CHM7, HFP ####[facility] (DEFAULT)[address] [place] [address] Osmolality [Osmolality] 293 mosm/kg Normal 278-305 [facility] Comment on above: Performed By: #### NATHANIEL RAMÍREZ, HFP ####[facility] (DEFAULT)[address] [place] [address] Potassium [Moles/Vol] 4.4 mmol/L Normal 3.5-5.0 [facility] Comment on above: Performed By: #### NATHANIEL RAMÍREZ, HFP ####[facility] (DEFAULT)[address] [facility] [place] [address] Sodium [Moles/Vol] 140 mmol/L Normal 135-145 [facility] Comment on above: Performed By: #### NATHANIEL RAMÍREZ, HFP ####[facility] (DEFAULT)[address] [facility] [place] [address] Urea nitrogen [Mass/Vol] 12 mg/dL Normal 7-25 [facility] Comment on above: Performed By: #### NATHANIEL RAMÍREZ, HFP ####[facility] (DEFAULT)[address] [facility] [place] [address] Urea nitrogen/Creatinine [Mass ratio] 9 mg/mg Normal [facility] Comment on above: Performed By: #### NATHANIEL RAMÍREZ, HFP ####[facility] (DEFAULT)[address] [facility] [place] [address] Anion gap [Moles/Vol] 13 mmol/L 7 - 17 mmol/L [facility] Chloride [Moles/Vol] 111 mmol/L High 98 - 10 8 mmol/L [facility] CO2 [Moles/Vol] 20 mmol/L Low 21 - 31 mmol/L [facility] Creatinine [Mass/Vol] 1.27 mg/dL 0.70 - 1.30 mg/dL [facility] eGFR, CKD-EPI, Male 68 - [facility]F [facility] Glucose [Mass/Vol] 100 mg/dL High 70 - 99 mg/dL [facility] Osmolality Calc [Osmolality] 293 [facility] Potassium [Moles/Vol] 4.4 mmol/L 3.5 - 5.0 mmol/L [facility] Sodium [Moles/Vol] 140 mmol/L 135 - 145 mmol/L [facility] Urea nitrogen [Mass/Vol] 12 mg/dL 7 - 25 mg/dL [facility] Urea nitrogen/Creatinine [Mass ratio] 9 mg/mg [facility] HEPATIC FUNCTION PANELon Albumin [Mass/Vol] 3.3 g/dL Low 3.5-5.0 [facility] Comment on above: Performed By: #### NATHANIEL RAMÍREZ, HFP ####[facility] (DEFAULT)[address] [place] [address] ALP [Catalytic activity/Vol] 143 U/L High 32-126 [facility] Comment on above: Performed By: #### NATHANIEL RAMÍREZ, HFP ####[facility] (DEFAULT)[address] [facility] [address] ALT [Catalytic activity/Vol] 28 U/L Normal 10-52 [facility] Comment on above: Performed By: #### NATHANIEL RAMÍREZ, HFP ####[facility] (DEFAULT)[address] [place] [address] AST [Catalytic activity/Vol] 29 U/L Normal 10-39 [facility] Comment on above: Performed By: #### NATHANIEL RAMÍREZ, HFP ####[facility] (DEFAULT)[address] [place] [address] Bilirubin [Mass/Vol] 0.9 mg/dL Normal <1.5 [facility] Comment on above: Performed By: #### NATHANIEL RAMÍREZ, HFP ####[facility] (DEFAULT)[address] [place] [address] Bilirubin.indirect [Mass/Vol] 0.2 mg/dL Normal <0.3 [facility] Comment on above: Performed By: #### M NATHANIEL BLOOM, HFP ####[facility] (DEFAULT)[address] [place] [address] Protein [Mass/Vol] 6.8 g/dL Normal 6.4-8.3 [facility] Comment on above: Performed By: #### M NATHANIEL BLOOM, HFP ####[facility] (DEFAULT)[address] [place] [address] Albumin [Mass/Vol] 3.3 g/dL Low 3.5 - 5.0 g/dL [facility] ALP [Catalytic activity/Vol] 143 U/L High 32 - 126 U/L [facility] ALT [Catalytic activity/Vol] 28 U/L 10 - 52 U/L [facility] AST [Catalytic activity/Vol] 29 U/L 10 - 39 U/L [facility] Bilirubin [Mass/Vol] 0.9 mg/dL NINF - 1.5 mg/dL [facility] Bilirubin.direct [Mass/Vol] 0.2 mg/dL NINF - 0.3 mg/dL [facility] Protein [Mass/Vol] 6.8 g/dL 6.4 - 8.3 g/dL [facility] MAGNESIUMon 09-10-2023 Magnesium [Mass/Vol] 1.9 mg/dL Normal 1.6-2.6 [facility] Comment on above: Performed By: #### M NATHANIEL BLOOM, HFP ####[facility] (DEFAULT)[address] [place] [address] Interpretation and review of laboratory results Normal [facility] Magnesium [Mass/Vol] 1.9 mg/dL 1.6 - 2 .6 mg/dL [facility] No Panel Informationon 09-10 Interpretation and review of laboratory results Abnormal [facility] TACROLIMUS LEVEL, TROUGH (ND E DRUG LEVEL)Ordered By: Jimy Castillo on 09-10-2023 Interpretation and review of laboratory results Normal [facility] Tacrolimus (Bld) [Mass/Vol] 11.8 ng/mL [facility] TACROLIMUS LEVEL, TROUGH (ND E DRUG LEVEL)on 09-10-2023 Tacrolimus, Trough 11.8 ng/mL Normal Bone Susana ow Transplant: 4.0-12.0, Therapeutic: 5.0-15.0 [facility] Comment on above: Order Comment: Pleas e draw at specified interval PRIOR to dose. Do not hold dose to wait for level. Specimens batched twice per day, (M-F) and once per day weekendsMethod performed is a chemiluminescent microparticle immunoasssay on the [employer] i2000.The range is based on experience at [facility] and users should be aware that target concentrations vary widely depending on concomitant therapy, time post-transplant, and desired degree of immunosuppression. Performed By: #### T ACRO ####[facility] (DEFAULT)[address] [place] [address] CHEM 7 (LYTES,BUN,CREA,GLUC) on 09-09-2023 Anion gap [Moles/Vol] 14 mmol/L Normal 7-17 [facility] Comment on above: Performed By: #### NATHANIEL RAMÍREZ, IPB ####[facility] (DEFAULT)[address] [place] [address] Chloride [Moles/Vol] 113 mmol/L High 98-108 [facility] Comment on above: Performed By: #### NATHANIEL RAMÍREZ, IPB ####[facility] (DEFAULT)[address] [place] [address] CO2 [Moles/Vol] 18 mmol/L Low 21-31 [facility] Comment on above: Performed By: #### NATHANIEL RAMÍREZ, IPB ####[facility] (DEFAULT)[address] [place] [address] Creatinine [Mass/Vol] 1.03 mg/dL Normal 0.70-1.30 [facility] Comment on above: Performed By: #### NATHANIEL RAMÍREZ, IPB ####[facility] (DEFAULT)[address] [place] [address] GFR/1.73 sq M.predicted among non-blacks MDRD (S/P/Bld) [Vol rate/Area] 87 mL/min/{1.73_m2} Normal >=60 [facility] Comment on above: Result Comment: Repo rted eGFR is based on the CKD-EPI 2020 equation using creatinine, age, and sex. Performed By: #### NATHANIEL RAMÍREZ, IPB ####[facility] (DEFAULT)[address] [facility] [place] [address] Glucose [Mass/Vol] 106 mg/dL High 70-99 [facility] Comment on above: Performed By: #### NATHANIEL RAMÍREZ, IPB ####[facility] (DEFAULT)[address] [facility] [place] [address] Osmolality [Osmolality] 294 mosm/kg Normal 278-305 [facility] Comment on above: Performed By: #### NATHANIEL RAMÍREZ, IPB ####[facility] (DEFAULT)[address] [place] [address] Potassium [Moles/Vol] 4.0 mmol/L Normal 3.5-5.0 [facility] Comment on above: Performed By: #### NATHANIEL RAMÍREZ, IPB ####[facility] (DEFAULT)[address] [place] [address] Sodium [Moles/Vol] 141 mmol/L Normal 135-145 [facility] Comment on above: Performed By: #### NATHANIEL RAMÍREZ, IPB ####[facility] (DEFAULT)[address] [place] [address] Urea nitrogen [Mass/Vol] 10 mg/dL Normal 7-25 [facility] Comment on above: Performed By: #### NATHANIEL RAMÍREZ, IPB ####[facility] (DEFAULT)[address] [place] [address] Urea nitrogen/Creatinine [Mass ratio] 10 mg/mg Normal [facility] Comment on above: Performed By: #### NATHANIEL RAMÍREZ, IPB ####[facility] (DEFAULT)[address] [place] [address] Anion gap [Moles/Vol] 14 mmol/L 7 - 17 [facility] Chloride [Moles/Vol] 113 mmol/L High 98 - 10 8 mmol/L [facility] CO2 [Moles/Vol] 18 mmol/L Low 21 - 31 mmol/L [facility] Creatinine [Mass/Vol] 1.03 mg/dL 0.70 - 1.30 mg/dL [facility] eGFR, CKD-EPI, Male 87 - PINF [facility] Glucose [Mass/Vol] 106 mg/dL High 70 - 99 mg/dL [facility] Interpretation and review of laboratory results Abnormal [facility] Osmolality Calc [Osmolality] 294 [facility] Potassium [Moles/Vol] 4.0 mmol/L 3.5 - 5.0 mmol/L [facility] Sodium [Moles/Vol] 141 mmol/L 135 - 145 mmol/L [facility] Urea nitrogen [Mass/Vol] 10 mg/dL 7 - 25 mg/dL [facility] Urea nitrogen/Creatinine [Mass ratio] 10 mg/mg [facility] MAGNESIUMon 09-09-2023 Magnesium [Mass/Vol] 1.6 mg/dL Normal 1.6-2.6 [facility] Comment on above: Performed By: #### NATHANIEL RAMÍREZ, IPB ####[facility] (DEFAULT)[address] [place] [address] Magnesium [Mass/Vol] 1.6 mg/dL 1.6 - 2 .6 mg/dL [facility] No Panel Informationon 09-09 Interpretation and review of laboratory results Normal [facility] PHOSPHATE, INORGANICon 09-09 Phosphorous 3.8 mg/dL Normal 2.2-4.6 [facility] Comment on above: Performed By: #### M MERLE, CHM7, IPB ####[facility] (DEFAULT)[address] [place] [address] Phosphate [Mass/Vol] 3.8 mg/dL 2.2 - 4 .6 mg/dL [facility] TACROLIMUS LEVEL, TROUGH (ND E DRUG LEVEL)on 09-09-2023 Interpretation and review of laboratory results Normal [facility] Tacrolimus (Bld) [Mass/Vol] 9.2 ng/mL [facility] Tacrolimus, Trough 9.2 ng/mL Normal Bone Susana ow Transplant: 4.0-12.0, Therapeutic: 5.0-15.0 [facility] Comment on above: Order Comment: Pleas e draw at specified interval PRIOR to dose. Do not hold dose to wait for level. Specimens batched twice per day, (M-F) and once per day weekendsMethod performed is a chemiluminescent microparticle immunoasssay on the [employer] i2000.The range is based on experience at [facility] and users should be aware that target concentrations vary widely depending on concomitant therapy, time post-transplant, and desired degree of immunosuppression. Performed By: #### T ACRO ####[facility] (DEFAULT)[address] [place] [address] CBC,PLATELETSon 09-08-2023 Hematocrit (Bld) [Volume fraction] 36.1 % Low 39.6-48.8 [facility] Comment on above: Performed By: #### [facility] ####[facility] (DEFAULT)[address] [place] [address] Hemoglobin (Bld) [Mass/Vol] 11.6 g/dL Low 13.4-16.8 [facility] Comment on above: Performed By: #### H EMO ####[facility] (DEFAULT)[address] [place] [address] MCV (RBC) [Entitic vol] 85.1 fL Normal 79.0-94.5 [facility] Comment on above: Performed By: #### H EMOGC ####[facility] (DEFAULT)[address] [place] [address] Mean Cell Hgb 27.4 pg Normal 26.1-33.3 [facility] Comment on above: Performed By: #### H EMOGC ####[facility] (DEFAULT)[address] [facility] [place] [address] Mean Cell Hgb Conc 32.1 g/dL Normal 31.9-36.5 [facility] Comment on above: Performed By: #### H EMOGC ####[facility] (DEFAULT)[address] [facility] [place] [address] Platelet mean volume (Bld) [Entitic vol] 9.5 fL Normal 8.7-12.3 [facility] Comment on above: Performed By: #### H EMOGC ####[facility] (DEFAULT)[address] [place] [address] Platelets (Bld) [#/Vol] 182 10*3/uL Normal 146-337 [facility] Comment on above: Performed By: #### H EMOGC ####[facility] (DEFAULT)[address] [place] [address] RBC (Bld) [#/Vol] 4.24 10*6/uL Low 4.38-5.83 [facility] Comment on above: Performed By: #### H EMOGC ####[facility] (DEFAULT)[address] [place] [address] RBC Distribution 13.6 % Normal 10.9-14.3 [facility] Comment on above: Performed By: #### H EMOGC ####[facility] (DEFAULT)[address] [place] [address] WBC (Bld) [#/Vol] 4.59 10*3/uL Normal 3.73-10.10 [facility] Comment on above: Performed By: #### [facility] ####[facility] (DEFAULT)[address] [place] [address] Erythrocyte distribution width (RBC) [Ratio] 13.6 % 10.9 - 14.3 % [facility] Hematocrit (Bld) [Volume fraction] 36.1 % Low 39.6 - 48.8 % [facility] Hemoglobin (Bld) [Mass/Vol] 11.6 g/dL Low 13.4 - 16.8 g/dL [facility] Interpretation and review of laboratory results Abnormal [facility] MCH (RBC) [Entitic mass] 27.4 pg 26.1 - 33.[address] [facility] MCHC (RBC) [Mass/Vol] 32.1 g/dL 31.9 - 36.5 g/dL [facility] MCV (RBC) [Entitic vol] 85.1 fL 79.0 - 94.[address] [facility] Platelet mean volume (Bld) [Entitic vol] 9.5 fL 8.7 - 12.[address] [facility] Platelets (Bld) [#/Vol] 182 10*3/uL 146 - 337 K/uL [facility] RBC (Bld) [#/Vol] 4.24 10*6/uL Low [facility] WBC (Bld) [#/Vol] 4.59 10*3/uL 3.73 - 10. 10 K/uL [facility] CHEM 7 (LYTES,BUN,CREA,GLUC) on 09-08-2023 Anion gap [Moles/Vol] 12 mmol/L Normal 7-17 [facility] Comment on above: Performed By: #### M GO, CHM7, HFP, IPB ####[facility] (DEFAULT)[address] [place] [address] Chloride [Moles/Vol] 113 mmol/L High 98-108 [facility] Comment on above: Performed By: #### M HELEN BLOOMM7, HFP, IPB ####[facility] (DEFAULT)[address] [place] [address] CO2 [Moles/Vol] 21 mmol/L Normal 21-31 [facility] Comment on above: Performed By: #### M HELEN BLOOMM7, HFP, IPB ####[facility] (DEFAULT)[address] [place] [address] Creatinine [Mass/Vol] 1.14 mg/dL Normal 0.70-1.30 [facility] Comment on above: Performed By: #### M HELEN BLOOMMJessica, HFP, IPB ####[facility] (DEFAULT)[address] [place] [address] GFR/1.73 sq M.predicted among non-blacks MDRD (S/P/Bld) [Vol rate/Area] 77 mL/min/{1.73_m2} Normal >=60 [facility] Comment on above: Result Comment: Repo rted eGFR is based on the CKD-EPI 2020 equation using creatinine, age, and sex. Performed By: #### Rod BLOOM CHM7, HFP, IPB ####[facility] (DEFAULT)[address] [place] [address] Glucose [Mass/Vol] 107 mg/dL High 70-99 [facility] Comment on above: Performed By: #### Rod BLOOM CHM7, HFP, IPB ####[facility] (DEFAULT)[address] [place] [address] Osmolality [Osmolality] 296 mosm/kg Normal 278-305 [facility] Comment on above: Performed By: #### Rod BLOOM CHM7, HFP, IPB ####[facility] (DEFAULT)[address] [place] [address] Potassium [Moles/Vol] 3.9 mmol/L Normal 3.5-5.0 [facility] Comment on above: Performed By: #### M MERLE CHM7, HFP, IPB ####[facility] (DEFAULT)[address] [place] [address] Sodium [Moles/Vol] 142 mmol/L Normal 135-145 [facility] Comment on above: Performed By: #### M HELEN BLOOMMJessica, HFP, IPB ####[facility] (DEFAULT)[address] [facility] [place] [address] Urea nitrogen [Mass/Vol] 11 mg/dL Normal 7-25 [facility] Comment on above: Performed By: #### M HELEN BLOOMMJessica, HFP, IPB ####[facility] (DEFAULT)[address] [facility] [place] [address] Urea nitrogen/Creatinine [Mass ratio] 10 mg/mg Normal [facility] Comment on above: Performed By: #### Rod BLOOM CHMJessica, HFP, IPB ####[facility] (DEFAULT)[address] [facility] [place] [address] Anion gap [Moles/Vol] 12 mmol/L 7 - 17 mmol/L [facility] Chloride [Moles/Vol] 113 mmol/L High 98 - 10 8 mmol/L [facility] CO2 [Moles/Vol] 21 mmol/L 21 - 31 mmol/L [facility] Creatinine [Mass/Vol] 1.14 mg/dL 0.70 - 1.30 mg/dL [facility] eGFR, CKD-EPI, Male 77 - PINF [facility] Glucose [Mass/Vol] 107 mg/dL High 70 - 99 mg/dL [facility] Osmolality Calc [Osmolality] 296 [facility] Potassium [Moles/Vol] 3.9 mmol/L 3.5 - 5.0 mmol/L [facility] Sodium [Moles/Vol] 142 mmol/L 135 - 145 mmol/L [facility] Urea nitrogen [Mass/Vol] 11 mg/dL 7 - 25 mg/dL [facility] Urea nitrogen/Creatinine [Mass ratio] 10 mg/mg [facility] HEPATIC FUNCTION PANELon Albumin [Mass/Vol] 2.9 g/dL Low 3.5-5.0 [facility] Comment on above: Performed By: #### M GO, CHM7, HFP, IPB ####[facility] (DEFAULT)[address] [place] [address] ALP [Catalytic activity/Vol] 133 U/L High 32-126 [facility] Comment on above: Performed By: #### M GO, CHM7, HFP, IPB ####[facility] (DEFAULT)[address] [place] [address] ALT [Catalytic activity/Vol] 23 U/L Normal 10-52 [facility] Comment on above: Performed By: #### M GO, CHM7, HFP, IPB ####[facility] (DEFAULT)[address] [place] [address] AST [Catalytic activity/Vol] 23 U/L Normal 10-39 [facility] Comment on above: Performed By: #### M GO, CHM7, HFP, IPB ####[facility] (DEFAULT)[address] [place] [address] Bilirubin [Mass/Vol] 0.8 mg/dL Normal <1.5 [facility] Comment on above: Performed By: #### M GO, CHM7, HFP, IPB ####[facility] (DEFAULT)[address] [place] [address] Bilirubin.indirect [Mass/Vol] 0.2 mg/dL Normal <0.3 [facility] Comment on above: Performed By: #### M GO, CHM7, HFP, IPB ####[facility] (DEFAULT)[address] [place] [address] Protein [Mass/Vol] 5.9 g/dL Low 6.4-8.3 [facility] Comment on above: Performed By: #### M NATHANIEL BLOOM, TAVO, IPB ####[facility] (DEFAULT)[address] [place] [address] Albumin [Mass/Vol] 2.9 g/dL Low 3.5 - 5.0 g/dL [facility] ALP [Catalytic activity/Vol] 133 U/L High 32 - 126 U/L [facility] ALT [Catalytic activity/Vol] 23 U/L 10 - 52 U/L [facility] AST [Catalytic activity/Vol] 23 U/L 10 - 39 U/L [facility] Bilirubin [Mass/Vol] 0.8 mg/dL NINF - 1.5 mg/dL [facility] Bilirubin.direct [Mass/Vol] 0.2 mg/dL NINF - 0.3 mg/dL [facility] Protein [Mass/Vol] 5.9 g/dL Low 6.4 - 8.3 g/dL [facility] MAGNESIUMon 09-08-2023 Magnesium [Mass/Vol] 1.8 mg/dL Normal 1.6-2.6 [facility] Comment on above: Performed By: #### M NATHANIEL BLOOM, TAVO, IPB ####[facility] (DEFAULT)[address] [place] [address] Interpretation and review of laboratory results Normal [facility] Magnesium [Mass/Vol] 1.8 mg/dL 1.6 - 2 .6 mg/dL [facility] No Panel Informationon 09-08 Interpretation and review of laboratory results Abnormal [facility] PHOSPHATE, INORGANICon 09-08 Interpretation and review of laboratory results Normal [facility] Phosphate [Mass/Vol] 4.1 mg/dL 2.2 - 4 .6 mg/dL [facility] Phosphorous 4.1 mg/dL Normal 2.2-4.6 [facility] Comment on above: Performed By: #### M GO, CHM7, HFP, IPB ####[facility] (DEFAULT)[address] [place] [address] TACROLIMUS LEVEL, TROUGH (ND E DRUG LEVEL)on 09-08-2023 Interpretation and review of laboratory results Normal [facility] Tacrolimus (Bld) [Mass/Vol] 8.5 ng/mL [facility] Tacrolimus, Trough 8.5 ng/mL Normal Bone Susana ow Transplant: 4.0-12.0, Therapeutic: 5.0-15.0 [facility] Comment on above: Order Comment: Pleas e draw at specified interval PRIOR to dose. Do not hold dose to wait for level. Specimens batched twice per day, (M-F) and once per day weekendsMethod performed is a chemiluminescent microparticle immunoasssay on the [employer] i2000.The range is based on experience at [facility] and users should be aware that target concentrations vary widely depending on concomitant therapy, time post-transplant, and desired degree of immunosuppression. Performed By: #### T ACRO ####[facility] (DEFAULT)[address] [place] [address] CBC,PLATELETSon 09-07-2023 Hematocrit (Bld) [Volume fraction] 37.1 % Low 39.6-48.8 [facility] Comment on above: Performed By: #### [facility] ####[facility] (DEFAULT)[address] [place] [address] Hemoglobin (Bld) [Mass/Vol] 11.9 g/dL Low 13.4-16.8 [facility] Comment on above: Performed By: #### [facility] [place] ####[facility] (DEFAULT)[address] [place] [address] 147[address] MCV (RBC) [Entitic vol] 86.5 fL Normal 79.0-94.5 [facility] Comment on above: Performed By: #### H EMO ####[facility] (DEFAULT)[address] [place] [address] Mean Cell Hgb 27.7 pg Normal 26.1-33.3 [facility] Comment on above: Performed By: #### H EMOGC ####[facility] (DEFAULT)[address] [place] [address] Mean Cell Hgb Conc 32.1 g/dL Normal 31.9-36.5 [facility] Comment on above: Performed By: #### H EMOGC ####[facility] (DEFAULT)[address] [place] [address] Platelet mean volume (Bld) [Entitic vol] 9.6 fL Normal 8.7-12.3 [facility] Comment on above: Performed By: #### H EMOGC ####[facility] (DEFAULT)[address] [place] [address] Platelets (Bld) [#/Vol] 176 10*3/uL Normal 146-337 [facility] Comment on above: Performed By: #### H EMOGC ####[facility] (DEFAULT)[address] [place] [address] RBC (Bld) [#/Vol] 4.29 10*6/uL Low 4.38-5.83 [facility] Comment on above: Performed By: #### H EMOGC ####[facility] (DEFAULT)[address] [place] [address] RBC Distribution 13.5 % Normal 10.9-14.3 [facility] Comment on above: Performed By: #### H EMOGC ####[facility] (DEFAULT)[address] [place] [address] WBC (Bld) [#/Vol] 4.10 10*3/uL Normal 3.73-10.10 [facility] Comment on above: Performed By: #### H EMOGC ####[facility] (DEFAULT)[address] [place] [address] Erythrocyte distribution width (RBC) [Ratio] 13.5 % 10.9 - 14.3 % [facility] Hematocrit (Bld) [Volume fraction] 37.1 % Low 39.6 - 48.8 % [facility] Hemoglobin (Bld) [Mass/Vol] 11.9 g/dL Low 13.4 - 16.8 g/dL [facility] Interpretation and review of laboratory results Abnormal [facility] MCH (RBC) [Entitic mass] 27.7 pg 26.1 - 33.[address] [facility] MCHC (RBC) [Mass/Vol] 32.1 g/dL 31.9 - 36.5 g/dL [facility] MCV (RBC) [Entitic vol] 86.5 fL 79.0 - 94.[address] [facility] Platelet mean volume (Bld) [Entitic vol] 9.6 fL 8.7 - 12.[address] [facility] Platelets (Bld) [#/Vol] 176 10*3/uL 146 - 337 K/uL [facility] RBC (Bld) [#/Vol] 4.29 10*6/uL Low [facility] WBC (Bld) [#/Vol] 4.10 10*3/uL 3.73 - 10. 10 K/uL [facility] CHEM 7 (LYTES,BUN,CREA,GLUC) on 09-07-2023 Anion gap [Moles/Vol] 13 mmol/L Normal 7-17 [facility] Comment on above: Performed By: #### M MERLE CHM7, HFP, IPB ####[facility] (DEFAULT)[address] [place] [address] Chloride [Moles/Vol] 113 mmol/L High 98-108 [facility] Comment on above: Performed By: #### M MERLE CHM7, HFP, IPB ####[facility] (DEFAULT)[address] [place] [address]274 CO2 [Moles/Vol] 19 mmol/L Low 21-31 [facility] Comment on above: Performed By: #### M MERLE CHM7, HFP, IPB ####[facility] (DEFAULT)[address] [facility] [place] [address] Creatinine [Mass/Vol] 1.22 mg/dL Normal 0.70-1.30 [facility] Comment on above: Performed By: #### Rod BLOOM CHM7, HFP, IPB ####[facility] (DEFAULT)[address] [place] [address] GFR/1.73 sq M.predicted among non-blacks MDRD (S/P/Bld) [Vol rate/Area] 71 mL/min/{1.73_m2} Normal >=60 [facility] Comment on above: Result Comment: Repo rted eGFR is based on the CKD-EPI 2020 equation using creatinine, age, and sex. Performed By: #### M MERLE CHM7, HFP, IPB ####[facility] (DEFAULT)[address] [facility] [place] [address] Glucose [Mass/Vol] 107 mg/dL High 70-99 [facility] Comment on above: Performed By: #### Rod BLOOM CHM7, HFP, IPB ####[facility] (DEFAULT)[address] [facility] [place] [address] Osmolality [Osmolality] 295 mosm/kg Normal 278-305 [facility] Comment on above: Performed By: #### M MERLE CHM7, HFP, IPB ####[facility] (DEFAULT)[address] [facility] [place] [address] Potassium [Moles/Vol] 3.9 mmol/L Normal 3.5-5.0 [facility] Comment on above: Performed By: #### Rod BLOOM, CHM7, HFP, IPB ####[facility] (DEFAULT)[address] [facility] [place] [address] Sodium [Moles/Vol] 141 mmol/L Normal 135-145 [facility] Comment on above: Performed By: #### M NATHANIEL BLOOM, HFP, IPB ####[facility] (DEFAULT)[address] [place] [address] Urea nitrogen [Mass/Vol] 13 mg/dL Normal 7-25 [facility] Comment on above: Performed By: #### M NATHANIEL BLOOM, HFP, IPB ####[facility] (DEFAULT)[address] [place] [address] Urea nitrogen/Creatinine [Mass ratio] 11 mg/mg Normal [facility] Comment on above: Performed By: #### M NATHANIEL BLOOM, HFP, IPB ####[facility] (DEFAULT)[address] [place] [address] Anion gap [Moles/Vol] 13 mmol/L 7 - 17 mmol/L [facility] Chloride [Moles/Vol] 113 mmol/L High 98 - 10 8 mmol/L [facility] CO2 [Moles/Vol] 19 mmol/L Low 21 - 31 mmol/L [facility] Creatinine [Mass/Vol] 1.22 mg/dL 0.70 - 1.30 mg/dL [facility] eGFR, CKD-EPI, Male 71 - PINF [facility] Glucose [Mass/Vol] 107 mg/dL High 70 - 99 mg/dL [facility] Osmolality [facility]c [[facility]olality] [facility] Potassium [Moles/Vol] 3.9 mmol/L 3.5 - 5.0 mmol/L [facility] Sodium [Moles/Vol] 141 mmol/L 135 - 145 mmol/L [facility] Urea nitrogen [Mass/Vol] 13 mg/dL 7 - 25 mg/dL [facility] Urea nitrogen/Creatinine [Mass ratio] 11 mg/mg [facility] HEPATIC FUNCTION PANELon Albumin [Mass/Vol] 2.9 g/dL Low 3.5-5.0 [facility] Comment on above: Performed By: #### M GO, CHM7, HFP, IPB ####[facility] (DEFAULT)[address] [place] [address] ALP [Catalytic activity/Vol] 111 U/L Normal 32-126 [facility] Comment on above: Performed By: #### M GO, CHM7, HFP, IPB ####[facility] (DEFAULT)[address] [place] [address] ALT [Catalytic activity/Vol] 18 U/L Normal 10-52 [facility] Comment on above: Performed By: #### M GO, CHM7, HFP, IPB ####[facility] (DEFAULT)[address] [place] [address] AST [Catalytic activity/Vol] 23 U/L Normal 10-39 [facility] Comment on above: Performed By: #### M GO, CHM7, HFP, IPB ####[facility] (DEFAULT)[address] [place] [address] Bilirubin [Mass/Vol] 0.8 mg/dL Normal <1.5 [facility] Comment on above: Performed By: #### M GO, CHM7, HFP, IPB ####[facility] (DEFAULT)[address] [place] [address] Bilirubin.indirect [Mass/Vol] 0.3 mg/dL High <0.3 [facility] Comment on above: Performed By: #### M GO, CHM7, HFP, IPB ####[facility] (DEFAULT)[address] [place] [address] Protein [Mass/Vol] 6.0 g/dL Low 6.4-8.3 [facility] Comment on above: Performed By: #### M GO, CHM7, HFP, IPB ####[facility] (DEFAULT)[address] [place] [address] Albumin [Mass/Vol] 2.9 g/dL Low 3.5 - 5.0 g/dL [facility] ALP [Catalytic activity/Vol] 111 U/L 32 - 126 U/L [facility] ALT [Catalytic activity/Vol] 18 U/L 10 - 52 U/L [facility] AST [Catalytic activity/Vol] 23 U/L 10 - 39 U/L [facility] Bilirubin [Mass/Vol] 0.8 mg/dL NINF - 1.5 mg/dL [facility] Bilirubin.direct [Mass/Vol] 0.3 mg/dL High NINF - 0.3 mg/dL [facility] Protein [Mass/Vol] 6.0 g/dL Low 6.4 - 8.3 g/dL [facility] MAGNESIUMon 09-07-2023 Magnesium [Mass/Vol] 1.7 mg/dL Normal 1.6-2.6 [facility] Comment on above: Performed By: #### M NATHANIEL BLOOM, HFP, IPB ####[facility] (DEFAULT)[address] [place] [address] Interpretation and review of laboratory results Normal [facility] Magnesium [Mass/Vol] 1.7 mg/dL 1.6 - 2 .6 mg/dL [facility] No Panel Informationon 09-07 Interpretation and review of laboratory results Abnormal [facility] [place] PHOSPHATE, INORGANICon 09-07 Phosphorous 4.4 mg/dL Normal 2.2-4.6 [facility] Comment on above: Performed By: #### M HELEN BLOOMM7, HFP, IPB ####[facility] (DEFAULT)[address] [place] [address] Interpretation and review of laboratory results Normal [facility] Phosphate [Mass/Vol] 4.4 mg/dL 2.2 - 4 .6 mg/dL [facility] TACROLIMUS LEVEL, TROUGH (ND E DRUG LEVEL)Ordered By: Elizabeth Maldonado on 09-07-2023 Interpretation and review of laboratory results Normal [facility] Tacrolimus (Bld) [Mass/Vol] 7.8 ng/mL [facility] TACROLIMUS LEVEL, TROUGH (ND E DRUG LEVEL)on 09-07-2023 Tacrolimus, Trough 7.8 ng/mL Normal Bone Susana ow Transplant: 4.0-12.0, Therapeutic: 5.0-15.0 [facility] Comment on above: Order Comment: Pleas e draw at specified interval PRIOR to dose. Do not hold dose to wait for level. Specimens batched twice per day, (M-F) and once per day weekendsMethod performed is a chemiluminescent microparticle immunoasssay on the [employer] i2000.The range is based on experience at [facility] and users should be aware that target concentrations vary widely depending on concomitant therapy, time post-transplant, and desired degree of immunosuppression. Performed By: #### T ACRO ####[facility] (DEFAULT)[address] [place] [address] CBC,PLATELETSon 09-06-2023 Hematocrit (Bld) [Volume fraction] 38.4 % Low 39.6-48.8 [facility] Comment on above: Performed By: #### [facility] [place] ####[facility] (DEFAULT)[address] [place] [address] Hemoglobin (Bld) [Mass/Vol] 11.9 g/dL Low 13.4-16.8 [facility] Comment on above: Performed By: #### [facility] [place] ####[facility] (DEFAULT)[address] [place] [address]79 MCV (RBC) [Entitic vol] 85.9 fL Normal 79.0-94.5 [facility] Comment on above: Performed By: #### [facility] [place] ####[facility] (DEFAULT)[address] [place] [address] Mean Cell Hgb 26.6 pg Normal 26.1-33.3 [facility] Comment on above: Performed By: #### H EMOGC ####[facility] (DEFAULT)[address] [place] [address] Mean Cell Hgb Conc 31.0 g/dL Low 31.9-36.5 [facility] Comment on above: Performed By: #### H EMOGC ####[facility] (DEFAULT)[address] [facility] [place] [address] Platelet mean volume (Bld) [Entitic vol] 9.7 fL Normal 8.7-12.3 [facility] Comment on above: Performed By: #### H EMOGC ####[facility] (DEFAULT)[address] [facility] [place] [address] Platelets (Bld) [#/Vol] 181 10*3/uL Normal 146-337 [facility] Comment on above: Performed By: #### H EMOGC ####[facility] (DEFAULT)[address] [place] [address] RBC (Bld) [#/Vol] 4.47 10*6/uL Normal 4.38-5.83 [facility] Comment on above: Performed By: #### H EMOGC ####[facility] (DEFAULT)[address] [place] [address] RBC Distribution 13.4 % Normal 10.9-14.3 [facility] Comment on above: Performed By: #### H EMOGC ####[facility] (DEFAULT)[address] [facility] [place] [address] WBC (Bld) [#/Vol] 4.41 10*3/uL Normal 3.73-10.10 [facility] Comment on above: Performed By: #### H EMOGC ####[facility] (DEFAULT)[address] [facility] [place] [address] Erythrocyte distribution width (RBC) [Ratio] 13.4 % 10.9 - 14.3 % [facility] Hematocrit (Bld) [Volume fraction] 38.4 % Low 39.6 - 48.8 % [facility] Hemoglobin (Bld) [Mass/Vol] 11.9 g/dL Low 13.4 - 16.8 g/dL [facility] Interpretation and review of laboratory results Abnormal [facility] MCH (RBC) [Entitic mass] 26.6 pg 26.1 - 33.[address] [facility] MCHC (RBC) [Mass/Vol] 31.0 g/dL Low 31.9 - 36.5 g/dL [facility] MCV (RBC) [Entitic vol] 85.9 fL 79.0 - 94.[address] [facility] Platelet mean volume (Bld) [Entitic vol] 9.7 fL 8.7 - 12.[address] [facility] Platelets (Bld) [#/Vol] 181 10*3/uL 146 - 337 K/uL [facility] RBC (Bld) [#/Vol] 4.47 10*6/uL [facility] WBC (Bld) [#/Vol] 4.41 10*3/uL 3.73 - 10. 10 K/uL [facility] CHEM 7 (LYTES,BUN,CREA,GLUC) on 09-06-2023 Anion gap [Moles/Vol] 14 mmol/L 7 - 17 mmol/L [facility] Chloride [Moles/Vol] 109 mmol/L High 98 - 10 8 mmol/L [facility] CO2 [Moles/Vol] 19 mmol/L Low 21 - 31 mmol/L [facility] Creatinine [Mass/Vol] 1.26 mg/dL 0.70 - 1.30 mg/dL [facility] eGFR, CKD-EPI, Male 69 - PINF [facility] Glucose [Mass/Vol] 114 mg/dL High 70 - 99 mg/dL [facility] Osmolality Calc [Osmolality] 291 [facility] Potassium [Moles/Vol] 4.1 mmol/L 3.5 - 5.0 mmol/L [facility] Sodium [Moles/Vol] 138 mmol/L 135 - 145 mmol/L [facility] Urea nitrogen [Mass/Vol] 16 mg/dL 7 - 25 mg/dL [facility] Urea nitrogen/Creatinine [Mass ratio] 13 mg/mg [facility] Anion gap [Moles/Vol] 14 mmol/L Normal 7-17 [facility] Comment on above: Performed By: #### NATHANIEL RAMÍREZ, HFP ####[facility] (DEFAULT)[address] [facility] [place] [facility] [place] [address] Chloride [Moles/Vol] 109 mmol/L High 98-108 [facility] Comment on above: Performed By: #### NATHANIEL RAMÍREZ, HFP ####[facility] (DEFAULT)[address] [facility] [place] [address] CO2 [Moles/Vol] 19 mmol/L Low 21-31 [facility] Comment on above: Performed By: #### NATHANIEL RAMÍREZ, HFP ####[facility] (DEFAULT)[address] [facility] [place] [address] Creatinine [Mass/Vol] 1.26 mg/dL Normal 0.70-1.30 [facility] Comment on above: Performed By: #### NATHANIEL RAMÍREZ, HFP ####[facility] (DEFAULT)[address] [place] [address] GFR/1.73 sq M.predicted among non-blacks MDRD (S/P/Bld) [Vol rate/Area] 69 mL/min/{1.73_m2} Normal >=60 [facility] Comment on above: Result Comment: Repo rted eGFR is based on the CKD-EPI 2020 equation using creatinine, age, and sex. Performed By: #### NATHANIEL RAMRÍEZ, HFP ####[facility] (DEFAULT)[address] [facility] [place] [address] Glucose [Mass/Vol] 114 mg/dL High 70-99 [facility] Comment on above: Performed By: #### NATHANIEL RAMÍREZ, HFP ####[facility] (DEFAULT)[address] [place] [address] Osmolality [Osmolality] 291 mosm/kg Normal 278-305 [facility] Comment on above: Performed By: #### NATHANIEL RAMÍREZ, HFP ####[facility] (DEFAULT)[address] [place] [address] Potassium [Moles/Vol] 4.1 mmol/L Normal 3.5-5.0 [facility] Comment on above: Performed By: #### NATHANIEL RAMÍREZ, HFP ####[facility] (DEFAULT)[address] [place] [address] Sodium [Moles/Vol] 138 mmol/L Normal 135-145 [facility] Comment on above: Performed By: #### NATHANIEL RAMÍREZ, HFP ####[facility] (DEFAULT)[address] [place] [address] Urea nitrogen [Mass/Vol] 16 mg/dL Normal 7-25 [facility] Comment on above: Performed By: #### NATHANIEL RAMÍREZ, HFP ####[facility] (DEFAULT)[address] [place] [address] Urea nitrogen/Creatinine [Mass ratio] 13 mg/mg Normal [facility] Comment on above: Performed By: #### NATHANIEL RAMÍREZ, HFP ####[facility] (DEFAULT)[address] [place] [address] HEPATIC FUNCTION PANELon Albumin [Mass/Vol] 3.0 g/dL Low 3.5 - 5.0 g/dL [facility] ALP [Catalytic activity/Vol] 115 U/L 32 - 126 U/L [facility] ALT [Catalytic activity/Vol] 25 U/L 10 - 52 U/L [facility] AST [Catalytic activity/Vol] 31 U/L 10 - 39 U/L [facility] Bilirubin [Mass/Vol] 1.0 mg/dL NINF - 1.5 mg/dL [facility] Bilirubin.direct [Mass/Vol] 0.3 mg/dL High NINF - 0.3 mg/dL [facility] Protein [Mass/Vol] 6.3 g/dL Low 6.4 - 8.3 g/dL [facility] Albumin [Mass/Vol] 3.0 g/dL Low 3.5-5.0 [facility] Comment on above: Performed By: #### M MERLE CHM7, HFP ####[facility] (DEFAULT)[address] [place] [address] ALP [Catalytic activity/Vol] 115 U/L Normal 32-126 [facility] Comment on above: Performed By: #### Rod BLOOM CHM7, HFP ####[facility] (DEFAULT)[address] [facility] [place] [address] ALT [Catalytic activity/Vol] 25 U/L Normal 10-52 [facility] Comment on above: Performed By: #### M MERLE CHM7, HFP ####[facility] (DEFAULT)[address] [place] [address] AST [Catalytic activity/Vol] 31 U/L Normal 10-39 [facility] Comment on above: Performed By: #### M MERLE CHM7, HFP ####[facility] (DEFAULT)[address] [place] [address] Bilirubin [Mass/Vol] 1.0 mg/dL Normal <1.5 [facility] Comment on above: Performed By: #### M MERLE CHM7, HFP ####[facility] (DEFAULT)[address] [place] [address] Bilirubin.indirect [Mass/Vol] 0.3 mg/dL High <0.3 [facility] Comment on above: Performed By: #### M MERLE CHM7, HFP ####[facility] (DEFAULT)[address] [place] [address] Protein [Mass/Vol] 6.3 g/dL Low 6.4-8.3 [facility] Comment on above: Performed By: #### M NATHANIEL BLOOM, HFP ####[facility] (DEFAULT)[address] [place] [address] MAGNESIUMon 09-06-2023 Interpretation and review of laboratory results Normal [facility] Magnesium [Mass/Vol] 2.0 mg/dL 1.6 - 2 .6 mg/dL [facility] Magnesium [Mass/Vol] 2.0 mg/dL Normal 1.6-2.6 [facility] Comment on above: Performed By: #### M NATHANIEL BLOOM, HFP ####[facility] (DEFAULT)[address] [place] [address] No Panel Informationon 09-06 Interpretation and review of laboratory results Abnormal [facility] [place] TACROLIMUS LEVEL, TROUGH (ND E DRUG LEVEL)on 09-06-2023 Interpretation and review of laboratory results Normal [facility] Tacrolimus (Bld) [Mass/Vol] 6.7 ng/mL [facility] Tacrolimus, Trough 6.7 ng/mL Normal Bone Susana ow Transplant: 4.0-12.0, Therapeutic: 5.0-15.0 [facility] Comment on above: Order Comment: Pleas e draw at specified interval PRIOR to dose. Do not hold dose to wait for level. Specimens batched twice per day, (M-F) and once per day weekendsMethod performed is a chemiluminescent microparticle immunoasssay on the [employer] i2000.The range is based on experience at [facility] and users should be aware that target concentrations vary widely depending on concomitant therapy, time post-transplant, and desired degree of immunosuppression. Performed By: #### T ACRO ####[facility] (DEFAULT)[address] [place] [address] CBC,PLATELETSon 09-05-2023 Hematocrit (Bld) [Volume fraction] 35.6 % Low 39.6-48.8 [facility] Comment on above: Performed By: #### H EMOGC ####[facility] (DEFAULT)[address] [place] [address] Hemoglobin (Bld) [Mass/Vol] 11.4 g/dL Low 13.4-16.8 [facility] Comment on above: Performed By: #### H EMOGC ####[facility] (DEFAULT)[address] [facility] [place] [address] MCV (RBC) [Entitic vol] 86.0 fL Normal 79.0-94.5 [facility] Comment on above: Performed By: #### H EMOGC ####[facility] (DEFAULT)[address] [facility] [place] [address] Mean Cell Hgb 27.5 pg Normal 26.1-33.3 [facility] Comment on above: Performed By: #### H EMOGC ####[facility] (DEFAULT)[address] [facility] [place] [address] Mean Cell Hgb Conc 32.0 g/dL Normal 31.9-36.5 [facility] Comment on above: Performed By: #### H EMOGC ####[facility] (DEFAULT)[address] [facility] [place] [address] Platelet mean volume (Bld) [Entitic vol] 10.0 fL Normal 8.7-12.3 [facility] Comment on above: Performed By: #### H EMOGC ####[facility] (DEFAULT)[address] [facility] [place] [address] Platelets (Bld) [#/Vol] 170 10*3/uL Normal 146-337 [facility] Comment on above: Performed By: #### H EMOGC ####[facility] (DEFAULT)[address] [facility] [place] [address] RBC (Bld) [#/Vol] 4.14 10*6/uL Low 4.38-5.83 [facility] Comment on above: Performed By: #### [facility] [place] ####[facility] (DEFAULT)[address] [place] [address] RBC Distribution 13.5 % Normal 10.9-14.3 [facility] Comment on above: Performed By: #### [facility] [place] ####[facility] (DEFAULT)[address] [place] [address] WBC (Bld) [#/Vol] 4.24 10*3/uL Normal 3.73-10.10 [facility] Comment on above: Performed By: #### [facility] [place] ####[facility] (DEFAULT)[address] [place] [address] Erythrocyte distribution width (RBC) [Ratio] 13.5 % 10.9 - 14.3 % [facility] Hematocrit (Bld) [Volume fraction] 35.6 % Low 39.6 - 48.8 % [facility] Hemoglobin (Bld) [Mass/Vol] 11.4 g/dL Low 13.4 - 16.8 g/dL [facility] Interpretation and review of laboratory results Abnormal [facility] MCH (RBC) [Entitic mass] 27.5 pg 26.1 - 33.[address] [facility] MCHC (RBC) [Mass/Vol] 32.0 g/dL 31.9 - 36.5 g/dL [facility] MCV (RBC) [Entitic vol] 86.0 fL 79.0 - 94.[address] [facility] Platelet mean volume (Bld) [Entitic vol] 10.0 fL 8.7 - 12.[address] [facility] Platelets (Bld) [#/Vol] 170 10*3/uL 146 - 337 K/uL [facility] RBC (Bld) [#/Vol] 4.14 10*6/uL Low [facility] WBC (Bld) [#/Vol] 4.24 10*3/uL 3.73 - 10. 10 K/uL [facility] CHEM 7 (LYTES,BUN,CREA,GLUC) on 09-05-2023 Anion gap [Moles/Vol] 12 mmol/L Normal 7-17 [facility] Comment on above: Performed By: #### NATHANIEL RAMÍREZ, HFP ####[facility] (DEFAULT)[address] [place] [address] Chloride [Moles/Vol] 107 mmol/L Normal 98-108 [facility] Comment on above: Performed By: #### NATHANIEL RAMÍREZ, HFP ####[facility] (DEFAULT)[address] [place] [address] CO2 [Moles/Vol] 20 mmol/L Low 21-31 [facility] Comment on above: Performed By: #### NATHANIEL RAMÍREZ, HFP ####[facility] (DEFAULT)[address] [place] [address] Creatinine [Mass/Vol] 1.43 mg/dL High 0.70-1.30 [facility] Comment on above: Performed By: #### NATHANIEL RAMÍREZ, HFP ####[facility] (DEFAULT)[address] [place] [address] GFR/1.73 sq M.predicted among non-blacks MDRD (S/P/Bld) [Vol rate/Area] 59 mL/min/{1.73_m2} Low >=60 [facility] Comment on above: Result Comment: Repo rted eGFR is based on the CKD-EPI 2020 equation using creatinine, age, and sex. Performed By: #### NATHANIEL RAMÍREZ, HFP ####[facility] (DEFAULT)[address] [place] [address] Glucose [Mass/Vol] 111 mg/dL High 70-99 [facility] Comment on above: Performed By: #### NATHANIEL RAMÍREZ, HFP ####[facility] (DEFAULT)[address] [place] [address] Osmolality [Osmolality] 286 mosm/kg Normal 278-305 [facility] Comment on above: Performed By: #### NATHANIEL RAMÍREZ, HFP ####[facility] (DEFAULT)[address] [place] [address] Potassium [Moles/Vol] 4.2 mmol/L Normal 3.5-5.0 [facility] Comment on above: Performed By: #### NATHANIEL RAMÍREZ, HFP ####[facility] (DEFAULT)[address] [place] [address] Sodium [Moles/Vol] 135 mmol/L Normal 135-145 [facility] Comment on above: Performed By: #### NATHANIEL RAMÍREZ, HFP ####[facility] (DEFAULT)[address] [place] [address] Urea nitrogen [Mass/Vol] 18 mg/dL Normal 7-25 [facility] Comment on above: Performed By: #### NATHANIEL RAMÍREZ, HFP ####[facility] (DEFAULT)[address] [place] [address] Urea nitrogen/Creatinine [Mass ratio] 13 mg/mg Normal [facility] Comment on above: Performed By: #### NATHANIEL RAMÍREZ, HFP ####[facility] (DEFAULT)[address] [place] [address] Anion gap [Moles/Vol] 12 mmol/L 7 - 17 mmol/L [facility] Chloride [Moles/Vol] 107 mmol/L 98 - 10 8 mmol/L [facility] CO2 [Moles/Vol] 20 mmol/L Low 21 - 31 mmol/L [facility] Creatinine [Mass/Vol] 1.43 mg/dL High 0.70 - 1.30 mg/dL [facility] eGFR, CKD-EPI, Male 60 Low - [facility] Glucose [Mass/Vol] 111 mg/dL High 70 - 99 mg/dL [facility] Osmolality Calc [Osmolality] 286 [facility] Potassium [Moles/Vol] 4.2 mmol/L 3.5 - 5.0 mmol/L [facility] Sodium [Moles/Vol] 135 mmol/L 135 - 145 mmol/L [facility] Urea nitrogen [Mass/Vol] 18 mg/dL 7 - 25 mg/dL [facility] Urea nitrogen/Creatinine [Mass ratio] 13 mg/mg [facility] CONTINUOUS CARDIAC MONITORIN G STRIPon 09-05-2023 [facility] HEPATIC FUNCTION PANELon Albumin [Mass/Vol] 2.8 g/dL Low 3.5-5.0 [facility] Comment on above: Performed By: #### NATHANIEL RAMÍREZ, HFP ####[facility] (DEFAULT)[address] [place] [address] ALP [Catalytic activity/Vol] 103 U/L Normal 32-126 [facility] Comment on above: Performed By: #### NATHANIEL RAMÍREZ, HFP ####[facility] (DEFAULT)[address] [place] [address] ALT [Catalytic activity/Vol] 26 U/L Normal 10-52 [facility] Comment on above: Performed By: #### NATHANIEL RAMÍREZ, HFP ####[facility] (DEFAULT)[address] [place] [address] AST [Catalytic activity/Vol] 38 U/L Normal 10-39 [facility] Comment on above: Performed By: #### NATHANIEL RAMÍREZ, HFP ####[facility] (DEFAULT)[address] [place] [address] Bilirubin [Mass/Vol] 0.9 mg/dL Normal <1.5 [facility] Comment on above: Performed By: #### NATHANIEL RAMÍREZ, HFP ####[facility] (DEFAULT)[address] [place] [address] Bilirubin.indirect [Mass/Vol] 0.1 mg/dL Normal <0.3 [facility] Comment on above: Performed By: #### M HELEN BLOOMM7, HFP ####[facility] (DEFAULT)[address] [place] [address] Protein [Mass/Vol] 6.1 g/dL Low 6.4-8.3 [facility] Comment on above: Performed By: #### M HELEN BLOOMM7, HFP ####[facility] (DEFAULT)[address] [facility] [place] [address] Albumin [Mass/Vol] 2.8 g/dL Low 3.5 - 5.0 g/dL [facility] ALP [Catalytic activity/Vol] 103 U/L 32 - 126 U/L [facility] ALT [Catalytic activity/Vol] 26 U/L 10 - 52 U/L [facility] AST [Catalytic activity/Vol] 38 U/L 10 - 39 U/L [facility] Bilirubin [Mass/Vol] 0.9 mg/dL [facility]5 mg/dL [facility] Bilirubin.direct [Mass/Vol] 0.1 mg/dL NINF - 0.3 mg/dL [facility] Protein [Mass/Vol] 6.1 g/dL Low 6.4 - 8.3 g/dL [facility] HISTOPLASMA ANTIGEN, FLUIDon 09-05-[address] RML [facility] Histo FLD interpretation Negative [facility] Histoplasma Antigen, FLUID Not detected ng/mL [facility] [place] HISTOPLASMA CAPSULATUM/BLAST OMYCES SPECIES,PCR FLUIDon 09-05-2023 HISTO/BLASTO RESULT Negative Not Applicable [facility] Specimen source Nom (Unsp spec) BAL RML [facility] [place] IMMUNOPHENOTYPING, TISSUE/FL UIDon 09-05-2023 BKR DX CODE Use Ordering [facility] Flow Interpretation See Comment [facility] Flow Interpreted by: Yossi Perla MD, PhD [facility] MAGNESIUMon 09-05-2023 Magnesium [Mass/Vol] 1.7 mg/dL Normal 1.6-2.6 [facility] Comment on above: Performed By: #### M GO, CHM7, [facility] ####[facility] (DEFAULT)[address] [place] [address] Interpretation and review of laboratory results Normal [facility] Magnesium [Mass/Vol] 1.7 mg/dL 1.6 - 2 .6 mg/dL [facility] No Panel Informationon 09-05 Interpretation and review of laboratory results Abnormal [facility] TACROLIMUS LEVEL, TROUGH (ND E DRUG LEVEL)Ordered By: Raymundo Mehta on 09-05-2023 Interpretation and review of laboratory results Normal [facility] Tacrolimus (Bld) [Mass/Vol] 5.3 ng/mL [facility] TACROLIMUS LEVEL, TROUGH (ND E DRUG LEVEL)on 09-05-2023 Tacrolimus, Trough 5.3 ng/mL Normal Bone Susana ow Transplant: 4.0-12.0, Therapeutic: 5.0-15.0 [facility] Comment on above: Order Comment: Pleas e draw at specified interval PRIOR to dose. Do not hold dose to wait for level. Specimens batched twice per day, (M-F) and once per day weekendsMethod performed is a chemiluminescent microparticle immunoasssay on the [employer] i2000.The range is based on experience at [facility] and users should be aware that target concentrations vary widely depending on concomitant therapy, time post-transplant, and desired degree of immunosuppression. Performed By: #### T ACRO ####[facility] (DEFAULT)[address] [place] [address] ARTERIAL BLOOD GAS (FULL PUENTE EL)on 09-04-2023 Base Excess -1.2 mmol/L Normal -3.0-3.0 [facility] Comment on above: Performed By: #### Vale UNDERWOOD ####[facility] (DEFAULT)[address] [place] [address] Carboxyhemoglobin 0.7 % Normal <=1.5 [facility] Comment on above: Performed By: #### Vale UNDERWOOD ####[facility] (DEFAULT)[address] [place] [address] Glucose [Mass/Vol] 159 mg/dL High 70-99 [facility] Comment on above: Performed By: #### Vale UNDERWOOD ####[facility] (DEFAULT)[address] [place] [address] HCO3 (Bld) [Moles/Vol] 22 mmol/L Normal 22-28 [facility] Comment on above: Performed By: #### Vale UNDERWOOD ####[facility] (DEFAULT)[address] [facility] [place] [address] Hematocrit (Bld) [Volume fraction] 38.0 % Low 40.2-50.4 [facility] Comment on above: Performed By: #### Vale UNDERWOOD ####[facility] (DEFAULT)[address] [place] [address] Hemoglobin (Bld) [Mass/Vol] 12.6 g/dL Low 13.4-16.8 [facility] Comment on above: Performed By: #### Vale UNDERWOOD ####[facility] (DEFAULT)[address] [place] [address] Ionized Calcium, Whole Blood 4.79 mg/dL Normal 4.60-5.30 [facility] Comment on above: Performed By: #### Vale UNDERWOOD ####[facility] (DEFAULT)[address] [facility] [place] [address] Lactate, Whole Blood 2.0 mmol/L High 0.5-1.6 [facility] Comment on above: Performed By: #### Vale UNDERWOOD ####[facility] (DEFAULT)[address] [place] [address] Methemoglobin 0.0 % Normal <=1.5 [facility] Comment on above: Performed By: #### Vale UNDERWOOD ####[facility] (DEFAULT)[address] [place] [address] Oxyhemoglobin 91 % Low 94-98 [facility] Comment on above: Performed By: #### Vale UNDERWOOD ####[facility] (DEFAULT)[address] [place] [address] pCO2 30 mm Hg Low 32-48 [facility] Comment on above: Performed By: #### Vale UNDERWOOD ####[facility] (DEFAULT)[address] [place] [address] pH (Bld) 7.48 [pH] High 7.35-7.45 [facility] Comment on above: Performed By: #### Vale UNDERWOOD ####[facility] (DEFAULT)[address] [facility] [address] pO2 62 mm Hg Low 83-108 [facility] Comment on above: Performed By: #### Vale UNDERWOOD ####[facility] (DEFAULT)[address] [place] [address] Potassium [Moles/Vol] 4.2 mmol/L Normal 3.5-5.0 [facility] Comment on above: Performed By: #### Vale UNDERWOOD ####[facility] (DEFAULT)[address] [place] [address] sO2 92 % Low 94-98 [facility] Comment on above: Performed By: #### Vale UNDERWOOD ####[facility] (DEFAULT)[address] [place] [address] Sodium [Moles/Vol] 130 mmol/L Low 135-145 [facility] Comment on above: Performed By: #### G YASMINE ####[facility] (DEFAULT)[address] [place] [address] Specimen type Nom (Spec) Arterial Normal [facility] Comment on above: Performed By: #### G YASMINE ####[facility] (DEFAULT)[address] [place] [address] Base excess Calc (Bld) [Moles/Vol] -1.2000 mmol/L -3.0 - 3.0 mmol/L [facility] Calcium.ionized (Bld) [Mass/Vol] 4.79 mg/dL 4.60 - 5.30 mg/dL [facility] Carboxyhemoglobin (Bld) [Mass fraction] 0.7 % NINF - 1.5 % [facility] CO2 (Bld) [Partial pressure] 30 mm[Hg] Low [facility] Glucose [Mass/Vol] 159 mg/dL High 70 - 99 mg/dL [facility] HCO3 (Bld) [Moles/Vol] 22 mmol/L 22 - 28 mmol/L [facility] Hematocrit (Bld) [Volume fraction] 38.0 % Low 40.2 - 50.4 % [facility] Hemoglobin (Bld) [Mass/Vol] 12.6 g/dL Low 13.4 - 16.8 g/dL [facility] Interpretation and review of laboratory results Abnormal [facility] Lactate [Moles/Vol] 2.0 mmol/L High 0.5 - 1. 6 mmol/L [facility] Methemoglobin (Bld) [Mass fraction] 0.0 % NINF - 1.5 % [facility] Oxygen (Bld) [Partial pressure] 62 mm[Hg] Low [facility] Oxygen saturation in Blood 92 % Low 94 - 98 % [facility] Oxyhemoglobin 91 % Low 94 - 98 % [facility] pH (Bld) 7.48 [pH] High 7.35 - 7.45 [facility] Potassium [Moles/Vol] 4.2 mmol/L 3.5 - 5.0 mmol/L [facility] Sodium [Moles/Vol] 130 mmol/L Low 135 - 145 mmol/L [facility] Specimen source Nom (Unsp spec) Arterial [facility] [place] Bacteria identified Respirat ory culture Nom (Unsp spec)on 09-04-2023 Bacteria identified Cx Nom (Unsp spec) NO GROWTH DAY 2 OF 2 [facility] Microscopic observation Other stain Nom (Unsp spec) Cytocentrifuge preparation [facility] Microscopic observation Other stain Nom (Unsp spec) Neutrophils, Rare [facility] Microscopic observation Other stain Nom (Unsp spec) Red Blood Cells Present [facility] Microscopic observation Other stain Nom (Unsp spec) No organisms seen [facility] Bacteria identified Respirat ory culture Nom (Unsp spec)Ordered By: Jose Salgado on 09-04-2023 Bacteria identified Cx Nom (Unsp spec) NO GROWTH DAY 2 OF 2 [facility] Microscopic observation Other stain Nom (Unsp spec) Cytocentrifuge preparation [facility] Microscopic observation Other stain Nom (Unsp spec) Neutrophils, Moderate [facility] Microscopic observation Other stain Nom (Unsp spec) Red Blood Cells Present [facility] Microscopic observation Other stain Nom (Unsp spec) No organisms seen [facility] CBC,PLATELETSon 09-04-2023 Hematocrit (Bld) [Volume fraction] 38.7 % Low 39.6-48.8 [facility] Comment on above: Performed By: #### [facility] ####[facility] (DEFAULT)[address] [place] [address] Hemoglobin (Bld) [Mass/Vol] 12.3 g/dL Low 13.4-16.8 [facility] Comment on above: Performed By: #### [facility] ####[facility] (DEFAULT)[address] [place] [address] MCV (RBC) [Entitic vol] 87.8 fL Normal 79.0-94.5 [facility] Comment on above: Performed By: #### H EMOGC ####[facility] (DEFAULT)[address] [place] [address] Mean Cell Hgb 27.9 pg Normal 26.1-33.3 [facility] Comment on above: Performed By: #### H EMOGC ####[facility] (DEFAULT)[address] [place] [address] Mean Cell Hgb Conc 31.8 g/dL Low 31.9-36.5 [facility] Comment on above: Performed By: #### H EMOGC ####[facility] (DEFAULT)[address] [facility] [place] [address] Platelet mean volume (Bld) [Entitic vol] 9.8 fL Normal 8.7-12.3 [facility] Comment on above: Performed By: #### H EMOGC ####[facility] (DEFAULT)[address] [facility] [place] [address] Platelets (Bld) [#/Vol] 173 10*3/uL Normal 146-337 [facility] Comment on above: Performed By: #### H EMOGC ####[facility] (DEFAULT)[address] [place] [address] RBC (Bld) [#/Vol] 4.41 10*6/uL Normal 4.38-5.83 [facility] Comment on above: Performed By: #### H EMOGC ####[facility] (DEFAULT)[address] [facility] [place] [address] RBC Distribution 13.2 % Normal 10.9-14.3 [facility] Comment on above: Performed By: #### H EMOGC ####[facility] (DEFAULT)[address] [facility] [place] [address] WBC (Bld) [#/Vol] 4.57 10*3/uL Normal 3.73-10.10 [facility] Comment on above: Performed By: #### [facility] ####[facility] (DEFAULT)[address] [place] [address] Erythrocyte distribution width (RBC) [Ratio] 13.2 % 10.9 - 14.3 % [facility] Hematocrit (Bld) [Volume fraction] 38.7 % Low 39.6 - 48.8 % [facility] Hemoglobin (Bld) [Mass/Vol] 12.3 g/dL Low 13.4 - 16.8 g/dL [facility] Interpretation and review of laboratory results Abnormal [facility] MCH (RBC) [Entitic mass] 27.9 pg 26.1 - 33.[address] [facility] MCHC (RBC) [Mass/Vol] 31.8 g/dL Low 31.9 - 36.5 g/dL [facility] MCV (RBC) [Entitic vol] 87.8 fL 79.0 - 94.[address] [facility] Platelet mean volume (Bld) [Entitic vol] 9.8 fL 8.7 - 12.[address] [facility] Platelets (Bld) [#/Vol] 173 10*3/uL 146 - 337 K/uL [facility] RBC (Bld) [#/Vol] 4.41 10*6/uL [facility] WBC (Bld) [#/Vol] 4.57 10*3/uL 3.73 - 10. 10 K/uL [facility] CHEM 7 (LYTES,BUN,CREA,GLUC) on 09-04-2023 Anion gap [Moles/Vol] 16 mmol/L Normal 7-17 [facility] Comment on above: Performed By: #### M MERLE, CHM7, [facility] ####[facility] (DEFAULT)[address] [place] [address] Chloride [Moles/Vol] 104 mmol/L Normal 98-108 [facility] Comment on above: Performed By: #### M MERLE, CHM7, HFP ####[facility] (DEFAULT)[address] [facility] [place] [address] CO2 [Moles/Vol] 18 mmol/L Low 21-31 [facility] Comment on above: Performed By: #### NATHANIEL RAMÍREZ, HFP ####[facility] (DEFAULT)[address] [facility] [place] [address] Creatinine [Mass/Vol] 1.22 mg/dL Normal 0.70-1.30 [facility] Comment on above: Performed By: #### NATHANIEL RAMÍREZ, HFP ####[facility] (DEFAULT)[address] [facility] [place] [address] GFR/1.73 sq M.predicted among non-blacks MDRD (S/P/Bld) [Vol rate/Area] 71 mL/min/{1.73_m2} Normal >=60 [facility] Comment on above: Result Comment: Repo rted eGFR is based on the CKD-EPI 2020 equation using creatinine, age, and sex. Performed By: #### NATHANIEL RAMÍREZ, HFP ####[facility] (DEFAULT)[address] [facility] [place] [address] Glucose [Mass/Vol] 124 mg/dL High 70-99 [facility] Comment on above: Performed By: #### NATHANIEL RAMÍREZ, HFP ####[facility] (DEFAULT)[address] [facility] [place] [address] Osmolality [Osmolality] 284 mosm/kg Normal 278-305 [facility] Comment on above: Performed By: #### NATHANIEL RAMÍREZ, HFP ####[facility] (DEFAULT)[address] [facility] [place] [address] Potassium [Moles/Vol] 3.9 mmol/L Normal 3.5-5.0 [facility] Comment on above: Performed By: #### NATHANIEL RAMÍREZ, HFP ####[facility] (DEFAULT)[address] [facility] [place] [address] Sodium [Moles/Vol] 134 mmol/L Low 135-145 [facility] Comment on above: Performed By: #### M NATHANIEL BLOOM, HFP ####[facility] (DEFAULT)[address] [facility] [place] [address] Urea nitrogen [Mass/Vol] 15 mg/dL Normal 7-25 [facility] Comment on above: Performed By: #### M NATHANIEL BLOOM, HFP ####[facility] (DEFAULT)[address] [facility] [place] [address] Urea nitrogen/Creatinine [Mass ratio] 12 mg/mg Normal [facility] Comment on above: Performed By: #### NTAHANIEL RAMÍREZ, HFP ####[facility] (DEFAULT)[address] [facility] [address] Anion gap [Moles/Vol] 16 mmol/L 7 - 17 mmol/L [facility] Chloride [Moles/Vol] 104 mmol/L 98 - 10 8 mmol/L [facility] CO2 [Moles/Vol] 18 mmol/L Low 21 - 31 mmol/L [facility] Creatinine [Mass/Vol] 1.22 mg/dL 0.70 - 1.30 mg/dL [facility] eGFR, CKD-EPI, Male 71 - [facility] Glucose [Mass/Vol] 124 mg/dL High 70 - 99 mg/dL [facility] Osmolality Calc [[facility]smolality] [facility] Potassium [Moles/Vol] 3.9 mmol/L 3.5 - 5.0 mmol/L [facility] Sodium [Moles/Vol] 134 mmol/L Low 135 - 145 mmol/L [facility] Urea nitrogen [Mass/Vol] 15 mg/dL 7 - 25 mg/[facility] Urea nitrogen/Creatinine [Mass ratio] 12 mg/mg [facility] CMV PCR,FLUIDS,URINE,EYE ETC on 09-04-2023 Specimen source Nom (Unsp spec) BAL LLL [facility] Specimen source Nom (Unsp spec) BAL RML [facility] HEPATIC FUNCTION PANELon Albumin [Mass/Vol] 3.0 g/dL Low 3.5-5.0 [facility] Comment on above: Performed By: #### Rod BLOOM CHM7, HFP ####[facility] (DEFAULT)[address] [place] [address] ALP [Catalytic activity/Vol] 112 U/L Normal 32-126 [facility] Comment on above: Performed By: #### TJ RAMÍREZ7, HFP ####[facility] (DEFAULT)[address] [place] [address] ALT [Catalytic activity/Vol] 22 U/L Normal 10-52 [facility] Comment on above: Performed By: #### Rod BLOOM CHM7, HFP ####[facility] (DEFAULT)[address] [place] [address] AST [Catalytic activity/Vol] 30 U/L Normal 10-39 [facility] Comment on above: Performed By: #### Rod BLOOM CHM7, HFP ####[facility] (DEFAULT)[address] [place] [address] Bilirubin [Mass/Vol] 1.2 mg/dL Normal <1.5 [facility] Comment on above: Performed By: #### Rod BLOOM CHM7, HFP ####[facility] (DEFAULT)[address] [place] [address] Bilirubin.indirect [Mass/Vol] 0.4 mg/dL High <0.3 [facility] Comment on above: Performed By: #### Rod BLOOM CHM7, HFP ####[facility] (DEFAULT)[address] [place] [address] Protein [Mass/Vol] 6.4 g/dL Normal 6.4-8.3 [facility] Comment on above: Performed By: #### M TJ BLOOM7, HFP ####[facility] (DEFAULT)[address] [place] [address] Albumin [Mass/Vol] 3.0 g/dL Low 3.5 - 5.0 g/dL [facility] ALP [Catalytic activity/Vol] 112 U/L 32 - 126 U/L [facility] ALT [Catalytic activity/Vol] 22 U/L 10 - 52 [facility] AST [Catalytic activity/Vol] 30 U/L 10 - 39 U[facility] Bilirubin [Mass/Vol] 1.2 mg/dL NINF - 1.5 mg/dL [facility] Bilirubin.direct [Mass/Vol] 0.4 mg/dL High NINF - 0.3 mg/dL [facility] Protein [Mass/Vol] 6.4 g/dL 6.4 - 8.3 g/dL [facility] LEGIONELLA PCRon 09-04-2023 Legionella sp rRNA Probe Ql (Unsp spec) Negative Not Applicable [facility] Specimen source Nom (Unsp spec) BAL RML [facility] Laboratory - Microbiology an d Antimicrobial susceptibilityon 09-04-2023 CMV DNA ESTELITA+probe Ql (Unsp spec) Negative Negative [facility] MAGNESIUMon 09-04-2023 Magnesium [Mass/Vol] 1.4 mg/dL Low 1.6-2.6 [facility] Comment on above: Performed By: #### M TJ BLOOM7, HFP ####[facility] (DEFAULT)[address] [place] [address] Magnesium [Mass/Vol] 1.4 mg/dL Low 1.6 - 2 .6 mg/dL [facility] No Panel Informationon 09-04 Annotation comment [Interpretation] Narrative DNR [facility] PN Report Status DNR [facility] Pneumocystis jiroveci,PCR result Negative Not Applicable [facility] Interpretation and review of laboratory results Abnormal [facility] PNEUMOCYSTIS JIROVECI,PCRon 09-04-2023 Specimen source Nom (Unsp spec) BAL LLL [facility] Specimen source Nom (Unsp spec) BAL RML [facility] Portable XR Chest Viewson RADIOLOGY RADIOLOGY [facility] Radiology Study observation (narrative) [facility] Portable XR Chest ViewsOrder ed By: Joanie Nugent on 09-04-2023 [facility] Work Phone: TACROLIMUS LEVEL, TROUGH (ND E DRUG LEVEL)on 09-04-2023 Interpretation and review of laboratory results Abnormal [facility] Tacrolimus (Bld) [Mass/Vol] 3.6 ng/mL Low [facility] Tacrolimus, Trough 3.6 ng/mL Low Bone Susana ow Transplant: 4.0-12.0, Therapeutic: 5.0-15.0 [facility] Comment on above: Order Comment: Pleas e draw at specified interval PRIOR to dose. Do not hold dose to wait for level. Specimens batched twice per day, (M-F) and once per day weekendsMethod performed is a chemiluminescent microparticle immunoasssay on the [employer] i2000.The range is based on experience at [facility] and users should be aware that target concentrations vary widely depending on concomitant therapy, time post-transplant, and desired degree of immunosuppression. Performed By: #### T ACRO ####[facility] (DEFAULT)[address] [place] [address] XR CHEST PORTABLEon 09-04-20 XR CHEST PORTABLE Normal [facility] ASPERGILLUS ANTIGEN, BALon 1 Galactomannan Ag IA Qn (Unsp spec) <0.500 NINF [facility] Galactomannan Ag IA Qn (Unsp spec) <0.500 NINF [facility] BAL CONSULTOrdered By: Noa Peralta on 09-03-2023 ALVEOLAR MACROPHAGES 32 % [facility] Work Phone: Bal comments Correlation with microbiology stains and cultures is recommended. [facility] Work Phone: Bal Diff Quik Stain Quality Check Acceptable [facility] Work Phone: BKR BAL INTERPRETATION Cellular specimen comprised of alveolar macrophages and small lymphocytes. No definitive microorganisms are observed. Moderate degenerative changes. [facility] Work Phone: BKR DX CODE Use Ordering [facility] Work Phone: Eosinophils Patterson stain Ql (Unsp spec) 0 % [facility] Work Phone: Lymphocytes/100 WBC (Bld) 57 % [facility] Work Phone: Neutrophils/100 WBC Manual cnt (Bronch spec) 11 % [facility] Work Phone: Pathologist review Jame (Unsp spec) [Interp] Leonardo Peralta MD [facility] Work Phone: [facility] Work Phone: BAL CONSULTon 09-03-2023 ALVEOLAR MACROPHAGES 33 % [facility] Bal comments Correlation with microbiology stains and cultures is recommended. Correlation with viral studies is recommended. [facility] Bal Diff Quik Stain Quality Check Acceptable [facility] BKR BAL INTERPRETATION Cellular specimen comprised of alveolar macrophages and small lymphocytes. No definitive microorganisms are observed. Rare degenerating cells with changes suggestive of viral cytopathic effect are noted. Moderate degenerative changes. [facility] BKR DX CODE Use Ordering [facility] Eosinophils Patterson stain Ql (Unsp spec) 0 % [facility] Lymphocytes/100 WBC (Bld) 49 % [facility] Neutrophils/100 WBC Manual cnt (Bronch spec) 18 % [facility] Pathologist review Jame (Unsp spec) [Interp] Leonardo Peralta MD [facility] [place] BRONCHOSCOPYon 09-03-2023 LAB, [facility] CBC,PLATELETSon 09-03-2023 Hematocrit (Bld) [Volume fraction] 39.6 % Normal 39.6-48.8 [facility] Comment on above: Performed By: #### H EMOGC ####[facility] (DEFAULT)[address] [place] [address] Hemoglobin (Bld) [Mass/Vol] 12.8 g/dL Low 13.4-16.8 [facility] Comment on above: Performed By: #### H EMOGC ####[facility] (DEFAULT)[address] [facility] [place] [address] MCV (RBC) [Entitic vol] 85.9 fL Normal 79.0-94.5 [facility] Comment on above: Performed By: #### H EMOGC ####[facility] (DEFAULT)[address] [place] [address] Mean Cell Hgb 27.8 pg Normal 26.1-33.3 [facility] Comment on above: Performed By: #### H EMOGC ####[facility] (DEFAULT)[address] [facility] [place] [address] Mean Cell Hgb Conc 32.3 g/dL Normal 31.9-36.5 [facility] Comment on above: Performed By: #### H EMOGC ####[facility] (DEFAULT)[address] [facility] [place] [address] Platelet mean volume (Bld) [Entitic vol] 9.4 fL Normal 8.7-12.3 [facility] Comment on above: Performed By: #### H EMOGC ####[facility] (DEFAULT)[address] [facility] [place] [address] Platelets (Bld) [#/Vol] 222 10*3/uL Normal 146-337 [facility] Comment on above: Performed By: #### [facility] ####[facility] (DEFAULT)[address] [place] [address] RBC (Bld) [#/Vol] 4.61 10*6/uL Normal 4.38-5.83 [facility] Comment on above: Performed By: #### H EMO ####[facility] (DEFAULT)[address] [place] [address] RBC Distribution 13.4 % Normal 10.9-14.3 [facility] Comment on above: Performed By: #### [facility] ####[facility] (DEFAULT)[address] [place] [address] WBC (Bld) [#/Vol] 4.36 10*3/uL Normal 3.73-10.10 [facility] Comment on above: Performed By: #### H [facility] ####[facility] (DEFAULT)[address] [place] [address] Erythrocyte distribution width (RBC) [Ratio] 13.4 % 10.9 - 14.3 % [facility] Hematocrit (Bld) [Volume fraction] 39.6 % 39.6 - 48.8 % [facility] Hemoglobin (Bld) [Mass/Vol] 12.8 g/dL Low 13.4 - 16.8 g/dL [facility] Interpretation and review of laboratory results Abnormal [facility] MCH (RBC) [Entitic mass] 27.8 pg 26.1 - 33.[address] [facility] MCHC (RBC) [Mass/Vol] 32.3 g/dL 31.9 - 36.5 g/dL [facility] MCV (RBC) [Entitic vol] 85.9 fL 79.0 - 94.[address] [facility] Platelet mean volume (Bld) [Entitic vol] 9.4 fL 8.7 - 12.[address] [facility] Platelets (Bld) [#/Vol] 222 10*3/uL 146 - 337 K/uL [facility] RBC (Bld) [#/Vol] 4.61 10*6/uL [facility] WBC (Bld) [#/Vol] 4.36 10*3/uL 3.73 - 10. 10 K/uL [facility] [place] CHEM 7 (LYTES,BUN,CREA,GLUC) on 09-03-2023 Anion gap [Moles/Vol] 12 mmol/L Normal 7-17 [facility] Comment on above: Performed By: #### M MERLE CHM7, HFP ####[facility] (DEFAULT)[address] [facility] [place] [address] Chloride [Moles/Vol] 104 mmol/L Normal 98-108 [facility] Comment on above: Performed By: #### Rod BLOOM CHM7, HFP ####[facility] (DEFAULT)[address] [place] [address] CO2 [Moles/Vol] 24 mmol/L Normal 21-31 [facility] Comment on above: Performed By: #### Rod BLOOM CHM7, HFP ####[facility] (DEFAULT)[address] [place] [address] Creatinine [Mass/Vol] 1.20 mg/dL Normal 0.70-1.30 [facility] Comment on above: Performed By: #### Rod BLOOM CHM7, HFP ####[facility] (DEFAULT)[address] [place] [address] GFR/1.73 sq M.predicted among non-blacks MDRD (S/P/Bld) [Vol rate/Area] 73 mL/min/{1.73_m2} Normal >=60 [facility] Comment on above: Result Comment: Repo rted eGFR is based on the CKD-EPI 2020 equation using creatinine, age, and sex. Performed By: #### M MERLE CHM7, HFP ####[facility] (DEFAULT)[address] [place] [address] Glucose [Mass/Vol] 112 mg/dL High 70-99 [facility] Comment on above: Performed By: #### NATHANIEL RAMÍREZ, HFP ####[facility] (DEFAULT)[address] [place] [address] Osmolality [Osmolality] 288 mosm/kg Normal 278-305 [facility] Comment on above: Performed By: #### NATHANIEL RAMÍREZ, HFP ####[facility] (DEFAULT)[address] [place] [address] Potassium [Moles/Vol] 4.1 mmol/L Normal 3.5-5.0 [facility] Comment on above: Performed By: #### NATHANIEL RAMÍREZ, HFP ####[facility] (DEFAULT)[address] [place] [address] Sodium [Moles/Vol] 136 mmol/L Normal 135-145 [facility] Comment on above: Performed By: #### NATHANIEL RAMÍREZ, HFP ####[facility] (DEFAULT)[address] [place] [address] Urea nitrogen [Mass/Vol] 17 mg/dL Normal 7-25 [facility] Comment on above: Performed By: #### NATHANIEL RAMÍREZ, HFP ####[facility] (DEFAULT)[address] [place] [address] Urea nitrogen/Creatinine [Mass ratio] 14 mg/mg Normal [facility] Comment on above: Performed By: #### NATHANIEL RAMÍREZ, HFP ####[facility] (DEFAULT)[address] [place] [address] Anion gap [Moles/Vol] 12 mmol/L 7 - 17 mmol/L [facility] Chloride [Moles/Vol] 104 mmol/L 98 - 10 8 mmol/L [facility] CO2 [Moles/Vol] 24 mmol/L 21 - 31 mmol/L [facility] Creatinine [Mass/Vol] 1.20 mg/dL 0.70 - 1.30 mg/dL [facility] eGFR, CKD-EPI, Male 73 - PINF [facility] Glucose [Mass/Vol] 112 mg/dL High 70 - 99 mg/dL [facility] Osmolality Calc [Osmolality] 288 [facility] Potassium [Moles/Vol] 4.1 mmol/L 3.5 - 5.0 mmol/L [facility] Sodium [Moles/Vol] 136 mmol/L 135 - 145 mmol/L [facility] Urea nitrogen [Mass/Vol] 17 mg/dL 7 - 25 mg/dL [facility] Urea nitrogen/Creatinine [Mass ratio] 14 mg/mg [facility] CYTOLOGY, NON-GYNOrdered By: Sherice Jimenez on 09-03-2023 CYTOLOGIC DIAGNOSIS x4zmzFKrGGCryLVfTQHnP4svexX oUVKloFAeV9AzokqyFTylFK8aBI 3xuMqziUEkiUMsVRJgJvYjx5nyj 193kSUfo1imGWHVfqkdeNc3k5ej BHXYpQ1lr1t1tU01KGTzjB5vbHH dPWesraKjCYkkfdLabiWqRmu6RJ R5eMyrFxclzMC5wYSpfOX5IRgzq 5LadKvrjJjpQGX7WYSyUsjxEKwh yKO2kKCvaCotvJRyAL9ka9rgtRW 7mpZxPUU6vNfepFP6nLjrypnwr0 orqCG1rKL8WTzshOS9KGupMtPlF 4uyCKKqhL6wE25cF2fbPZYtcInz WLoqFADxjGL2LNQ5FILsd0iyVTM soFMilCRtXsWpZOayHnh8m9zpRI FvbJ78nFGxatM5iMzpISgvqMJ6F V81KWtkg3UaMMMifXxyFZLvjF7u YzIzXGxldmVsbmZjbjIzXGxldmV nidTpLVecnyRag4WhdpBmdMK0AZ wfcyRqfPY8wLnnSQBbH0X4R126W DokwvJfgbHlPxQhhyv6XLWkhPvm bGlzdGxldmVsXGxldmVsbmZjMjN rqLU2LVmkBcZaHqTukDJ3XOvnMc GhaPN3ZDdcaLEriIL9STsvoAZ5J Ry1LKb4NUusMKydArw3rBqpuHF7 YVnnsU5xNQZuH71vMdQ0r6uosWI 5aCV8AZzpsCR4CFpeKnLvJ9vxFN HevI0xE30bY3vpWZTrtLwaITrsY PCndRD3QIY1FGBda3ueXKSziUAp sECrYjBfRLdvPtc9x4pqTZSlrM3 9cERpvaR7rJydAN61QQain5VaYS WygNboGYEfwI4dJrDsWYcgivUgg mZjbjIzXGxldmVsamMwXGxldmVs h4NdmlPspEG9VTzmotDooKX7bJz xJSRsI7H2M697BXlunbOzxcGnHf Erfky6QHPxvUesbSzhtLgykfGyX FfkfbOtapPuFsKgwJU8AGlhZdIb RqHlfJE2THzuNjWxxSF1SHiimCP ddII4XFjnpIZ7YFz6NNe8CWuhIG bdDoa8aVwrbDA2XSqwfL0xIQPpG 05lHbY7r6mzlCK1pCQ2HKprqTL8 PPbvWrCtK3atFIAayF4bM83gE1q dYROeyPebEXqiQPXomHU9DGA3GS Vgd9qwOSRlrHWnxRHtXvVwLTafO sk3i9sjEBQcmV17gBRnrtN6bJwk BY49BRmfv6RaFYKfaSlgQAYgxB8 mYzIzXGxldmVsbmZjbjIzXGxldm FyjfCdYPkhphBzu7DiovQagTM7G ZklrjGrkKC0gNumEOFgA4I9W136 STwukjBsdpPbKyEpbod8SYSwkSn cbGlzdGxldmVsXGxldmVsbmZjMj DyqYT3KOvzDcNbJeIffBX0WLjyY yMivTT2TXvzxVMlrIL6PFvpeNL9 PBh5FWc1RDocZBarWab7lJnjdSA 5XJsyvC9jJYYaL76tZzC8jG34ZS jlsXcbzT51ZWAvlHWnnCRopXM8J SsgnBdfrX40CZDzhJHbEEpck6Eu FXGiXyI7FHY4PBGhnMpojW99CAS hnWKrB440eiHoQHpxAU61EPEfwE DjfbPvRsZvPIXbxEYhkGI3CVQxM E5rjcmzSLeiEBbgNBXrojG6YAQc vXOtI2IqJDUvWR2xmrflOOW0ZZx qSHQdRWH7XwUbGOXxq7Lvktg7Fl GzuVw0p8naTKPaMZLmdFtiz8klE YW3BXRelSRbY2yseX5iLAHmVG8d latyu4ioYJubKMckOIAcxHB0kzB 1AKIohXWbR1QapK6mCZSaWLLlfv KivKakcT6fMzgigdRpYTDrYSGCZ hFXHn8QV3wMDZgRLF7RFFFhOAST RPcWNZZFQEKPPTrAZ0VZCUjKGsT oVACrALDhZ2uUB4kJP6pxIiubJk ZsPUfaKXUqIoNbU0FpOASsagrgS CAhNOPYGD1LFOAGNXGGLb9LSSE8 QXGdrfrhhKK1IYzrahVbrFh5mQG wzQqdeW4fXtxkxbRaCGGfXQCHpv KYVWizL60hriJiA6YnyASuUWDqD VyxYE14wCRsOUIahGOeXNc0jZ0k WLsspVcyurTOiJGpnT1iasalWLq jZjBccGFyXGxpMFxsczBccGFyfQ == [facility] Work Phone: Case Report [facility] Work Phone: Clinical History b1xixSToRSCewKEgFLPq O9gfudI pVJFoiODoG3YtvwfqXQxvDB1fXO 0ulXgniUJxyGKjLGHvHzPay3nko 275hMHeq4vuIDHEgsijpLf3oQlq F70cd3O2QsddY1bfFSByRKtcMKP bUTjqwGCuINj8UCZlmLVdfdLlVj FsSOFwbBBeeSC1ITRfHY4vbhilX LwlTLahSDVttrO2CCYexSLxH4Dw OZJlRN7qonixSXP4PVjyMVCmXRH 4DpIaSNTcw0Jxuzx8ZjSseSm1m3 ziMROyNDRkyEwgi4ewWQX9LGEsr ZSsD3whcV8pFBSwYE3elqgyd0ds GOflDAikCNAodTS5ssR0LUUzgIU lD9OwxK9dJPLwLRArtdSuaXbswR 5cZnMyMFxjZjEgUmVuYWwgdHJhb eDpvHGbxU0rCSQjhn1= [facility] Work Phone: For Immediate Release to Patient's MyChart? Yes Yes [facility] Work Phone: Gross Description p1vemHHcYZHymFOuNTNe N7ddgmE pONZmzYWxJ1SylmmtFGprBM3jLM 7nlLxceMUizOJfZVGbFvMei2fnr 200gHWxd3zeHYAXqymnxPd9wKzz C94ll5I6VaoaN54ihSHzRJO0TKP yPKVgkYNfAQOkUXA5PAKgsOLjC8 uqNPHeAJ5lfbarDYeqHRdbMAQgk QJ6GPUhyMFqO1VfRJVaDYagCHQn fms9XnSvAq1mdRVfqLjmPYbeJTM kXHBsYWluXGZzMjAgTExMIEJBTF zkMTLrACPpoJViRNu3CNEndR6pf TIhfkMqwEOjfW1upMebDTcjTQGg TAPZWUHskJfkIWVOZBSdc8HzdK3 ccGFyXHBhcmRccGFyXHBhcn0= [facility] Work Phone: [facility] Work Phone: HEPATIC FUNCTION PANELon Albumin [Mass/Vol] 3.2 g/dL Low 3.5-5.0 [facility] Comment on above: Performed By: #### M NATHANIEL BLOOM, HFP ####[facility] (DEFAULT)[address] [place] [address] ALP [Catalytic activity/Vol] 118 U/L Normal 32-126 [facility] Comment on above: Performed By: #### M NATHANIEL BLOOM, HFP ####[facility] (DEFAULT)[address] [place] [address] ALT [Catalytic activity/Vol] 25 U/L Normal 10-52 [facility] Comment on above: Performed By: #### NATHANIEL RAMÍREZ, HFP ####[facility] (DEFAULT)[address] [place] [address] AST [Catalytic activity/Vol] 32 U/L Normal 10-39 [facility] Comment on above: Performed By: #### M NATHANIEL BLOOM, HFP ####[facility] (DEFAULT)[address] [place] [address] Bilirubin [Mass/Vol] 1.0 mg/dL Normal <1.5 [facility] Comment on above: Performed By: #### TJ RAMÍREZ7, HFP ####[facility] (DEFAULT)[address] [place] [address] Bilirubin.indirect [Mass/Vol] 0.3 mg/dL High <0.3 [facility] Comment on above: Performed By: #### NATHANIEL RAMÍREZ, HFP ####[facility] (DEFAULT)[address] [place] [address] Protein [Mass/Vol] 6.5 g/dL Normal 6.4-8.3 [facility] Comment on above: Performed By: #### NATHANIEL RAMÍREZ, HFP ####[facility] (DEFAULT)[address] [place] [address] Albumin [Mass/Vol] 3.2 g/dL Low 3.5 - 5.0 g/dL [facility] ALP [Catalytic activity/Vol] 118 U/L 32 - 126 U/L [facility] ALT [Catalytic activity/Vol] 25 U/L 10 - 52 U/L [facility] AST [Catalytic activity/Vol] 32 U/L 10 - 39 U/L [facility] Bilirubin [Mass/Vol] 1.0 mg/dL NINF - 1.5 mg/dL [facility] Bilirubin.direct [Mass/Vol] 0.3 mg/dL High NINF - 0.3 mg/dL [facility] Protein [Mass/Vol] 6.5 g/dL 6.4 - 8.3 g/dL [facility] HISTOPLASMA AND BLASTOMYCES ANTIGEN, ENZYME IMMUNOASSAY, SERMon 09-03-2023 Histoplasma/Blastomy antonia Ag Result Detected Critically abnormal Not Detected [facility] Histoplasma/Blastomy antonia Ag Value 5.3 ng/mL [facility] Interpretation and review of laboratory results Abnormal [facility] [place] IMMUNOPHENOTYPING, TISSUE/FL UIDon 09-03-2023 BKR DX CODE Use Ordering Normal [facility] Comment on above: Order Comment: Dilan e lab add on to specimen collected yesterdayIMMUNOPHENOTYPING DIAGNOSISPATIENT NAME: GEORGE SLATER: 1970MRN: [id number]#: [id number] BY: Yossi Perla M.D,, Ph.D. [id number] TYPE: Bronchial Alveolar LavageLABORATORY INTERPRETATION:There is no [...] performance characteristicsdetermined The Flow Cytometry Laboratory at [facility]. It has notbeen cleared or approved by the FDA. This laboratory is certifiedunder the Clinical Laboratory Improvement Amendments (CLIA)as qualified to perform high complexity clinical laboratorytesting. This test is used for clinical purposes. It should notbe regarded as investigational or for research.The [facility] Flow Cytometry Laboratory lower limitof CLL MRD detection is 0.1% of the gated lymphocytes. Performed By: #### G IPP ####[facility] (DEFAULT)[address] [place] [address] Flow Interpretation See Comment Normal [facility] Comment on above: Order Comment: Pleas e lab add on to specimen collected yesterdayIMMUNOPHENOTYPING DIAGNOSISPATIENT NAME: GEORGE SLATER: 1970MRN: [id number]#: [id number] BY: Yossi Perla M.D,, Ph.D. [id number] TYPE: Bronchial Alveolar LavageLABORATORY INTERPRETATION:There is no [...] performance characteristicsdetermined The Flow Cytometry Laboratory at [facility]. It has notbeen cleared or approved by the FDA. This laboratory is certifiedunder the Clinical Laboratory Improvement Amendments (CLIA)as qualified to perform high complexity clinical laboratorytesting. This test is used for clinical purposes. It should notbe regarded as investigational or for research.The [facility] Flow Cytometry Laboratory lower limitof CLL MRD detection is 0.1% of the gated lymphocytes. Performed By: #### G IPP ####[facility] ([facility])[address] [place] [address] Flow Interpreted by: Yossi Perla MD, PhD [facility] Comment on above: Order Comment: Pleas e lab add on to specimen collected yesterdayIMMUNOPHENOTYPING DIAGNOSISPATIENT NAME: GEORGE SLATER: 1970MRN: [id number]#: [id number] BY: Yossi Perla M.D,, Ph.D. [id number] TYPE: Bronchial Alveolar LavageLABORATORY INTERPRETATION:There is no [...] performance characteristicsdetermined The Flow Cytometry Laboratory at [facility]. It has notbeen cleared or approved by the FDA. This laboratory is certifiedunder the Clinical Laboratory Improvement Amendments (CLIA)as qualified to perform high complexity clinical laboratorytesting. This test is used for clinical purposes. It should notbe regarded as investigational or for research.The [facility] Flow Cytometry Laboratory lower limitof CLL MRD detection is 0.1% of the gated lymphocytes. Performed By: #### G IPP ####[facility] (DEFAULT)[address] [place] [address] MAGNESIUMon 09-03-2023 Magnesium [Mass/Vol] 1.6 mg/dL Normal 1.6-2.6 [facility] Comment on above: Performed By: #### M GO, CHM7, [facility] ####[facility] (DEFAULT)[address] [place] [address] Interpretation and review of laboratory results Normal [facility] Magnesium [Mass/Vol] 1.6 mg/dL 1.6 - 2 .6 mg/dL [facility] No Panel Informationon 09-03 Interpretation and review of laboratory results Abnormal [facility] [place] PARVOVIRUS (B19) DNA, PCR, B LOODon 09-03-2023 PARVOVIRUS B19 BY RAPID PCR Not detected Not Detected [facility] ND SPEC SOURCE Whole Blood [facility] Portable XR Chest Viewson RADIOLOGY RADIOLOGY [facility] Radiology Study observation (narrative) [facility] Portable XR Chest ViewsOrder ed By: [place] on 09-03-2023 [facility] Work Phone: XR CHEST PORTABLEon 09-03-20 23 XR CHEST PORTABLE Normal [facility] ACID FAST CULTUREon 09-02-20 23 Bacteria identified Cx Nom (Unsp spec) NO GROWTH DAY 42 OF 42 Normal [facility] Comment on above: Performed By: #### A FB ####[facility] (DEFAULT)[address] [place] [address] Fluorochrome Stain No acid Fast Bacillus Seen Normal [facility] Comment on above: Performed By: #### A FB ####[facility] (DEFAULT)[address] [place] [address] Bacteria identified Cx Nom (Unsp spec) NO GROWTH DAY 42 OF 42 Normal [facility] Comment on above: Order Comment: BAL A FB culture. Clinical suspicion for non-tuberculous mycobacteria Performed By: #### A FB ####[facility] (DEFAULT)[address] [place] [address] Fluorochrome Stain No acid Fast Bacillus Seen Normal [facility] Comment on above: Order Comment: BAL A FB culture. Clinical suspicion for non-tuberculous mycobacteria Performed By: #### A FB ####[facility] (DEFAULT)[address] [place] [address] ASPERGILLUS (GALACTOMANNAN), ANTIGENon 09-02-2023 Galactomannan Ag IA Qn <0.500 NINF [facility] [place] ASPERGILLUS ANTIGEN, BALon 1 Aspergillus Galactomannan Antigen, BAL <0.500 Normal <0.5 [facility] Comment on above: Result Comment: ---- ADDITIONAL INFORMATION This is a qualitative test and the resulted index value isnot indicative of disease severity. Serial testing isrecommended for patients at high risk for invasiveaspergillosis.This assay was performed using the FDA-cleared [employer] Aspergillus Galactomannan EIA.Test Performed by:[address] Director: Rosendo Bose M.D. Ph.D.; CLIA# [id number] Performed By: #### X ASGFL ####[facility] (DEFAULT)[address] [address] Aspergillus Galactomannan Antigen, BAL <0.500 Normal <0.5 [facility] Comment on above: Order Comment: BAL a spirgillus antigen Result Comment: ---- ADDITIONAL INFORMATION This is a qualitative test and the resulted index value isnot indicative of disease severity. Serial testing isrecommended for patients at high risk for invasiveaspergillosis.This assay was performed using the FDA-cleared [employer] Aspergillus Galactomannan EIA.Test Performed by:[address] Director: Rosendo Bose M.D. Ph.D.; CLIA# [id number] Performed By: #### X ASGFL ####[facility] (DEFAULT)[address] [place] [address] ATYPICAL BACTERIAL PNEUMONIA ,PCROrdered By: Shari Contreras on 09-02-2023 B. parapertussis DNA ESTELITA+probe Ql (Unsp spec) Not detected Not Detected [facility] B. pertussis DNA ESTELITA+probe Ql (Unsp spec) Not detected Not Detected [facility] C. pneumoniae DNA ESTELITA+probe Ql (Unsp spec) Not detected Not Detected [facility] Interpretation and review of laboratory results Normal [facility] M. pneumoniae DNA ESTELITA+probe Ql (Unsp spec) Not detected Not Detected [facility] ATYPICAL BACTERIAL PNEUMONIA ,PCRon 09-02-2023 Bordetella Parapertussis Not detected Normal Not Detected [facility] Comment on above: Order Comment: Viral [...] by The Clinical Microbiology Laboratory at [facility]. It has not been cleared or approved by the FDA. The laboratory is required under CLIA as qualified to perform high-complexity testing. This test is used for clinical purposes. It should not be regarded as investigational or for research. Performed By: #### A TYPNE ####[facility] (DEFAULT)[address] [place] [address] Bordetella Pertussis Not detected Normal Not Detected [facility] Comment on above: Order Comment: Viral [...] by The Clinical Microbiology Laboratory at [facility]. It has not been cleared or approved by the FDA. The laboratory is required under CLIA as qualified to perform high-complexity testing. This test is used for clinical purposes. It should not be regarded as investigational or for research. Performed By: #### A TYPNE ####[facility] (DEFAULT)[address] [place] [address] Chlamydia Pneumoniae Not detected Normal Not Detected [facility] Comment on above: Order Comment: Viral [...] by The Clinical Microbiology Laboratory at [facility]. It has not been cleared or approved by the FDA. The laboratory is required under CLIA as qualified to perform high-complexity testing. This test is used for clinical purposes. It should not be regarded as investigational or for research. Performed By: #### A TYPNE ####[facility] (DEFAULT)[address] [place] [address] Mycoplasma Pneumoniae Not detected Normal Not Detected [facility] Comment on above: Order Comment: Viral [...] by The Clinical Microbiology Laboratory at [facility]. It has not been cleared or approved by the FDA. The laboratory is required under CLIA as qualified to perform high-complexity testing. This test is used for clinical purposes. It should not be regarded as investigational or for research. Performed By: #### A TYPNE ####[facility] (DEFAULT)[address] [place] [address] BAL CONSULTon 09-02-2023 ALVEOLAR MACROPHAGES 33 % Normal [facility] Comment on above: Order Comment: BAL c onsultIf > 15% lymphocytes - please send for flow. Performed By: #### B ALC ####[facility] (DEFAULT)[address] [place] [address], [place] [address] Bal comments Correlation with microbiology stains and cultures is recommended. Correlation with viral studies is recommended. Normal [facility] Comment on above: Order Comment: BAL c onsultIf > 15% lymphocytes - please send for flow. Performed By: #### B ALC ####[facility] (DEFAULT)[address] [place] [address] Bal Diff Quik Stain Quality Check Acceptable Normal [facility] Comment on above: Order Comment: BAL c onsultIf > 15% lymphocytes - please send for flow. Performed By: #### B ALC ####[facility] (DEFAULT)[address] [place] [address] Bal Reviewed By: Leonardo Peralta MD [facility] Comment on above: Order Comment: BAL c onsultIf > 15% lymphocytes - please send for flow. Performed By: #### B ALC ####[facility] (DEFAULT)[address] [facility] [place] [address] BKR BAL INTERPRETATION Cellular specimen comprised of alveolar macrophages and small lymphocytes. No definitive microorganisms are observed. Rare degenerating cells with changes suggestive of viral cytopathic effect are noted. Moderate degenerative changes. Normal [facility] Comment on above: Order Comment: BAL c onsultIf > 15% lymphocytes - please send for flow. Performed By: #### B ALC ####[facility] (DEFAULT)[address] [place] [address] BKR DX CODE Use Ordering Normal [facility] Comment on above: Order Comment: BAL c onsultIf > 15% lymphocytes - please send for flow. Performed By: #### B ALC ####[facility] (DEFAULT)[address] [place] [address] Eosinophils/100 WBC (Bld) 0 % Normal [facility] Comment on above: Order Comment: BAL c onsultIf > 15% lymphocytes - please send for flow. Performed By: #### B ALC ####[facility] (DEFAULT)[address] [facility] [place] [address] Lymphocytes/100 WBC (Bld) 49 % Normal [facility] Comment on above: Order Comment: BAL c onsultIf > 15% lymphocytes - please send for flow. Performed By: #### B ALC ####[facility] (DEFAULT)[address] [facility] [place] [address] Neutrophils/100 WBC (Bld) 18 % Normal [facility] Comment on above: Order Comment: BAL c onsultIf > 15% lymphocytes - please send for flow. Performed By: #### B ALC ####[facility] (DEFAULT)[address] [facility] [place] [address] ALVEOLAR MACROPHAGES 32 % Normal [facility] Comment on above: Order Comment: BAL c onsult for cell differential and pathologist review. Please do flow cytometry if > 12% lymphocytes Performed By: #### B ALC ####[facility] (DEFAULT)[address] [place] [address] Bal comments Correlation with microbiology stains and cultures is recommended. [facility] Comment on above: Order Comment: BAL c onsult for cell differential and pathologist review. Please do flow cytometry if > 12% lymphocytes Performed By: #### B ALC ####[facility] (DEFAULT)[address] [place] [address] Bal Diff Quik Stain Quality Check Acceptable Normal [facility] Comment on above: Order Comment: BAL c onsult for cell differential and pathologist review. Please do flow cytometry if > 12% lymphocytes Performed By: #### B ALC ####[facility] (DEFAULT)[address] [place] [address], [place] [address] Bal Reviewed By: Leonardo Peralta MD [facility] Comment on above: Order Comment: BAL c onsult for cell differential and pathologist review. Please do flow cytometry if > 12% lymphocytes Performed By: #### B ALC ####[facility] (DEFAULT)[address] [place] [address], [place] [address] BKR BAL INTERPRETATION Cellular specimen comprised of alveolar macrophages and small lymphocytes. No definitive microorganisms are observed. Moderate degenerative changes. [facility] Comment on above: Order Comment: BAL c onsult for cell differential and pathologist review. Please do flow cytometry if > 12% lymphocytes Performed By: #### B ALC ####[facility] (DEFAULT)[address] [place] [address] BKR DX CODE Use Ordering Normal [facility] Comment on above: Order Comment: BAL c onsult for cell differential and pathologist review. Please do flow cytometry if > 12% lymphocytes Performed By: #### B ALC ####[facility] (DEFAULT)[address] [facility] [place] [address] Eosinophils/100 WBC (Bld) 0 % Normal [facility] Comment on above: Order Comment: BAL c onsult for cell differential and pathologist review. Please do flow cytometry if > 12% lymphocytes Performed By: #### B ALC ####[facility] (DEFAULT)[address] [facility] [place] [address] Lymphocytes/100 WBC (Bld) 57 % Normal [facility] Comment on above: Order Comment: BAL c onsult for cell differential and pathologist review. Please do flow cytometry if > 12% lymphocytes Performed By: #### B ALC ####[facility] (DEFAULT)[address] [place] [address] Neutrophils/100 WBC (Bld) 11 % Normal [facility] Comment on above: Order Comment: BAL c onsult for cell differential and pathologist review. Please do flow cytometry if > 12% lymphocytes Performed By: #### B ALC ####[facility] (DEFAULT)[address] [place] [address] BRONCHOSCOPYon 09-02-2023 Radiology Study observation (narrative) [facility] Bacteria identified Cx Nom ( Bld)on 09-02-2023 Bacteria identified Cx Nom (Unsp spec) NO GROWTH DAY 5 OF 5 [facility] CBC,PLATELETSon 09-02-2023 Hematocrit (Bld) [Volume fraction] 39.9 % Normal 39.6-48.8 [facility] Comment on above: Performed By: #### H EMOGC ####[facility] (DEFAULT)[address] [place] [address] Hemoglobin (Bld) [Mass/Vol] 12.9 g/dL Low 13.4-16.8 [facility] Comment on above: Performed By: #### H EMOGC ####[facility] (DEFAULT)[address] [place] [address] MCV (RBC) [Entitic vol] 86.4 fL Normal 79.0-94.5 [facility] Comment on above: Performed By: #### H EMOGC ####[facility] (DEFAULT)[address] [place] [address] Mean Cell Hgb 27.9 pg Normal 26.1-33.3 [facility] Comment on above: Performed By: #### H EMOGC ####[facility] (DEFAULT)[address] [place] [address] Mean Cell Hgb Conc 32.3 g/dL Normal 31.9-36.5 [facility] Comment on above: Performed By: #### H EMOGC ####[facility] (DEFAULT)[address] [facility] [place] [address] Platelet mean volume (Bld) [Entitic vol] 9.5 fL Normal 8.7-12.3 [facility] Comment on above: Performed By: #### H EMOGC ####[facility] (DEFAULT)[address] [place] [address] Platelets (Bld) [#/Vol] 210 10*3/uL Normal 146-337 [facility] Comment on above: Performed By: #### H EMOGC ####[facility] (DEFAULT)[address] [place] [address] RBC (Bld) [#/Vol] 4.62 10*6/uL Normal 4.38-5.83 [facility] Comment on above: Performed By: #### H EMOGC ####[facility] (DEFAULT)[address] [place] [address] RBC Distribution 13.2 % Normal 10.9-14.3 [facility] Comment on above: Performed By: #### H EMOGC ####[facility] (DEFAULT)[address] [place] [address] WBC (Bld) [#/Vol] 4.12 10*3/uL Normal 3.73-10.10 [facility] Comment on above: Performed By: #### H [facility] ####[facility] (DEFAULT)[address] [place] [address] Erythrocyte distribution width (RBC) [Ratio] 13.2 % 10.9 - 14.3 % [facility] Hematocrit (Bld) [Volume fraction] 39.9 % 39.6 - 48.8 % [facility] Hemoglobin (Bld) [Mass/Vol] 12.9 g/dL Low 13.4 - 16.8 g/dL [facility] Interpretation and review of laboratory results Abnormal [facility] MCH (RBC) [Entitic mass] 27.9 pg 26.1 - 33.[address] [facility] MCHC (RBC) [Mass/Vol] 32.3 g/dL 31.9 - 36.5 g/dL [facility] MCV (RBC) [Entitic vol] 86.4 fL 79.0 - 94.[address] [facility] Platelet mean volume (Bld) [Entitic vol] 9.5 fL 8.7 - 12.[address] [facility] Platelets (Bld) [#/Vol] 210 10*3/uL 146 - 337 K/uL [facility] RBC (Bld) [#/Vol] 4.62 10*6/uL [facility] WBC (Bld) [#/Vol] 4.12 10*3/uL 3.73 - 10. 10 K/uL [facility] CHEM 7 (LYTES,BUN,CREA,GLUC) on 09-02-2023 Anion gap [Moles/Vol] 13 mmol/L Normal 7-17 [facility] Comment on above: Performed By: #### M GO, CHM7, [facility] ####[facility] (DEFAULT)[address] [place] [address] Chloride [Moles/Vol] 105 mmol/L Normal 98-108 [facility] Comment on above: Performed By: #### NATHANIEL RAMÍREZ, HFP ####[facility] (DEFAULT)[address] [place] [address] CO2 [Moles/Vol] 22 mmol/L Normal 21-31 [facility] Comment on above: Performed By: #### NATHANIEL RAMÍREZ, HFP ####[facility] (DEFAULT)[address] [place] [address] Creatinine [Mass/Vol] 1.25 mg/dL Normal 0.70-1.30 [facility] Comment on above: Performed By: #### NATHANIEL RAMÍREZ, HFP ####[facility] (DEFAULT)[address] [facility] [place] [address] GFR/1.73 sq M.predicted among non-blacks MDRD (S/P/Bld) [Vol rate/Area] 69 mL/min/{1.73_m2} Normal >=60 [facility] Comment on above: Result Comment: Repo rted eGFR is based on the CKD-EPI 2020 equation using creatinine, age, and sex. Performed By: #### NATHANIEL RAMÍREZ, HFP ####[facility] (DEFAULT)[address] [place] [address] Glucose [Mass/Vol] 105 mg/dL High 70-99 [facility] Comment on above: Performed By: #### NATHANIEL RAMÍREZ, HFP ####[facility] (DEFAULT)[address] [facility] [place] [address] Osmolality [Osmolality] 287 mosm/kg Normal 278-305 [facility] Comment on above: Performed By: #### NATHANIEL RAMÍREZ, HFP ####[facility] (DEFAULT)[address] [place] [address] Potassium [Moles/Vol] 4.3 mmol/L Normal 3.5-5.0 [facility] Comment on above: Performed By: #### M GO, CHM7, HFP ####[facility] (DEFAULT)[address] [facility] [place] [address] Sodium [Moles/Vol] 136 mmol/L Normal 135-145 [facility] Comment on above: Performed By: #### M MERLE CHM7, HFP ####[facility] (DEFAULT)[address] [facility] [place] [address] Urea nitrogen [Mass/Vol] 16 mg/dL Normal 7-25 [facility] Comment on above: Performed By: #### M MERLE CHM7, HFP ####[facility] (DEFAULT)[address] [facility] [place] [address] Urea nitrogen/Creatinine [Mass ratio] 13 mg/mg Normal [facility] Comment on above: Performed By: #### Rod BLOOM CHM7, HFP ####[facility] (DEFAULT)[address] [facility] [place] [address] Anion gap [Moles/Vol] 13 mmol/L 7 - 17 mmol/L [facility] Chloride [Moles/Vol] 105 mmol/L 98 - 10 8 mmol/L [facility] CO2 [Moles/Vol] 22 mmol/L 21 - 31 mmol/L [facility] Creatinine [Mass/Vol] 1.25 mg/dL 0.70 - 1.30 mg/dL [facility] eGFR, CKD-EPI, Male 69 - PINF [facility] Glucose [Mass/Vol] 105 mg/dL High 70 - 99 mg/dL [facility] Osmolality Calc [Osmolality] 287 [facility] Potassium [Moles/Vol] 4.3 mmol/L 3.5 - 5.0 mmol/L [facility] Sodium [Moles/Vol] 136 mmol/L 135 - 145 mmol/L [facility] Urea nitrogen [Mass/Vol] 16 mg/dL 7 - 25 mg/dL [facility] Urea nitrogen/Creatinine [Mass ratio] 13 mg/mg [facility] CMV PCR,FLUIDS,URINE,EYE ETC on 09-02-2023 CMV by PCR Result Negative Normal Negative [facility] Comment on above: Result Comment: ---- ADDITIONAL INFORMATION This test was developed and its performance characteristicsdetermined by [facility] in a manner consistent with CLIArequirements. This test has not been cleared or approved bythe U.S. Food and Drug Administration.Test Performed by:[facility] [place] [id number] Director: Rosendo Bose M.D. Ph.D.; CLIA# [id number] Performed By: #### Y CMV ####[facility] (DEFAULT)[address] [address] CMV BY PCR SOURCE BAL [facility] Normal [facility] Comment on above: Performed By: #### Y CMV ####[facility] (DEFAULT)[address] [address] CMV by PCR Result Negative Normal Negative [facility] Comment on above: Result Comment: ---- ADDITIONAL INFORMATION This test was developed and its performance characteristicsdetermined by [facility] in a manner consistent with CLIArequirements. This test has not been cleared or approved bythe U.S. Food and Drug Administration.Test Performed by:[address] [address]Qsy Director: Rosendo Bose M.D. Ph.D.; CLIA# [id number] Performed By: #### Y CMV ####[facility] (DEFAULT)[address] [address] CMV BY PCR SOURCE BAL [facility] Comment on above: Performed By: #### Y CMV ####[facility] (DEFAULT)[address] [place] [address] CYTOLOGY, NON-GYNon 09-02-20 23 CYTOLOGIC DIAGNOSIS Normal [facility] Comment on above: Result Comment: A. B RONCHOALVEOLAR LAVAGE, LEFT LOWER LOBE (CYTOLOGY):FINAL DIAGNOSIS:No Malignant Cells Are IdentifiedHypocellular Specimen Performed By: #### N ONGNNONFNA ####[facility] (DEFAULT)[address] [place] [address] Case Report Normal [facility] Comment on above: Result Comment: Medi abhishek Cytology Report Case: [id number] Provider: Crow Diaz MD Collected: 09/02/2023 08:38 AMOrdering [facility] Received: 09/02/2023 10:44 AMPathologist: KENTON Caglepecimen: BRONCHOALVEOLAR LAVAGE, LLL BAL Performed By: #### N ONGNNONFNA ####[facility] (DEFAULT)[address] [place] [address] Clinical History Renal transplant. Normal O [facility] Comment on above: Performed By: #### N ONGNNONFNA ####[facility] (DEFAULT)[address] [place] [address] Gross Description Normal [facility] Comment on above: Result Comment: LLL BAL1 ml hazy colorless fld unfixed1 TP slide Pap stainFor Immediate Release to Patient's MyChart? Yes Performed By: #### N ONGNNONFNA ####[facility] (DEFAULT)[address] [place] [address] FUNGUS CULTUREon 09-02-2023 Bacteria identified Cx Nom (Unsp spec) Normal [facility] Comment on above: Order Comment: Ident ification was performed on the MALDI-TOF mass spectrometer [employer]. This test was developed by [facility]. It has not been cleared or approved by the FDA. The laboratory is regulated under CLIA as qualified to perform high-complexity testing. This test is used for clinical purposes. It should not be regarded as investigational or for research. Result Comment: Grow qb652[place] Histoplasma capsulatum Performed By: #### F UN ####[facility] (DEFAULT)[address] [place] [address] Bacteria identified Cx Nom (Unsp spec) NO GROWTH DAY 28 OF 28 Normal [facility] Comment on above: Order Comment: BAL f ungal culture Performed By: #### F UN ####[facility] (DEFAULT)[address] [place] [address] HEPATIC FUNCTION PANELon Albumin [Mass/Vol] 3.2 g/dL Low 3.5-5.0 [facility] Comment on above: Performed By: #### NATHANIEL RAMÍREZ, HFP ####[facility] (DEFAULT)[address] [place] [address] ALP [Catalytic activity/Vol] 107 U/L Normal 32-126 [facility] Comment on above: Performed By: #### NATHANIEL RAMÍREZ, HFP ####[facility] (DEFAULT)[address] [place] [address] ALT [Catalytic activity/Vol] 20 U/L Normal 10-52 [facility] Comment on above: Performed By: #### NATHANIEL RAMÍREZ, HFP ####[facility] (DEFAULT)[address] [place] [address] AST [Catalytic activity/Vol] 31 U/L Normal 10-39 [facility] Comment on above: Performed By: #### NATHANIEL RAMÍREZ, HFP ####[facility] (DEFAULT)[address] [place] [address] Bilirubin [Mass/Vol] 1.0 mg/dL Normal <1.5 [facility] Comment on above: Performed By: #### NATHANIEL RAMÍREZ, HFP ####[facility] (DEFAULT)[address] [place] [address] Bilirubin.indirect [Mass/Vol] 0.3 mg/dL High <0.3 [facility] Comment on above: Performed By: #### M NATHANIEL BLOOM, HFP ####[facility] (DEFAULT)[address] [place] [address] Protein [Mass/Vol] 6.6 g/dL Normal 6.4-8.3 [facility] Comment on above: Performed By: #### M NATHANIEL BLOOM, HFP ####[facility] (DEFAULT)[address] [facility] [place] [address] Albumin [Mass/Vol] 3.2 g/dL Low 3.5 - 5.0 g/dL [facility] ALP [Catalytic activity/Vol] 107 U/L 32 - 126 U/L [facility] ALT [Catalytic activity/Vol] 20 U/L 10 - 52 U/L [facility] AST [Catalytic activity/Vol] 31 U/L 10 - 39 U/L [facility] Bilirubin [Mass/Vol] 1.0 mg/dL NINF - 1.5 mg/dL [facility] Bilirubin.direct [Mass/Vol] 0.3 mg/dL High NINF - 0.3 mg/dL [facility] Protein [Mass/Vol] 6.6 g/dL 6.4 - 8.3 g/dL [facility] HISTOPLASMA ANTIGEN, FLUIDon 09-02-2023 FH SOURCE BAL RML Normal [facility] Comment on above: Performed By: #### Y FHST ####[facility] (DEFAULT)[address] [facility] [place] [address] Histo FLD interpretation Negative Normal [facility] Comment on above: Result Comment: ---- ADDITIONAL INFORMATION Reference interval: None DetectedReportable Range: Positive Results reported in ng/mL from0.20 ng/mL to 20.00 ng/mLPositive Results above 20.00 ng/mL are reported as 'Abovethe Limit of Quantification'Cross-reactions occur with Blastomyces spp., Coccidioidesspp., and Paracoccidioides brasiliensis.This test was developed and its performance characteristicsdetermined by [employer]. It has not beencleared or approved by the FDA; however, FDA clearance orapproval is not currently required for clinical use. Theresults are not intended to be used as the sole means forclinical diagnosis or patient management decisions.Test Performed by:[employer] [facility] [place] [address] Performed By: #### Y ST ####[facility] (DEFAULT)[address] [place] [address] Histoplasma Antigen, FLUID Not detected Normal [facility] Comment on above: Performed By: #### Y ST ####[facility] (DEFAULT)[address] [place] [address] HISTOPLASMA ANTIGEN,URINEon 09-02-2023 H. capsulatum Ag (U) [Mass/Vol] Not detected ng/mL [facility] H. capsulatum Ag IA Ql (U) Not detected Not Detected [facility] HISTOPLASMA CAPSULATUM/BLAST OMYCES SPECIES,PCR FLUIDon 09-02-2023 HISTO/BLASTO RESULT Negative Normal Not Applicable [facility] Comment on above: Result Comment: A Ne gative result from BAL fluid does not rule out thepresence of Histoplasma capsulatum because the sensitivity from this source is suboptimal. ADDITIONAL INFORMATION This test was developed and its performance characteristicsdetermined by [facility] in a manner consistent with CLIArequirements. This test has not been cleared or approved bythe U.S. Food and Drug Administration.Test Performed by:[address] [address]Als Director: Rosendo Bose M.D. Ph.D.; CLIA# [id number] Performed By: #### Y HBRP ####[facility] (DEFAULT)[address] [place] [address] Source BAL RML Normal [facility] Comment on above: Performed By: #### Y HBRP ####[facility] (DEFAULT)[address] [place] [address] HIV 1 AND 2 ANTIBODIES/P24 A NTIGENOrdered By: Wilma Luque on 09-02-2023 HIV 1+2 Ab+HIV1 p24 Ag IA Ql Non-Reactive Non Reactive [facility] Interpretation and review of laboratory results Normal [facility] HIV 1 AND 2 ANTIBODIES/P24 A NTIGENon 09-02-2023 HIV-1/HIV-2 Ab With p24 Antigen Non-Reactive Normal Non Reactive [facility] Comment on above: Performed By: #### L [id number] ####[facility] (DEFAULT)[address] [place] [address] LEGIONELLA CULTUREon 023 Bacteria identified Cx Nom (Unsp spec) NO GROWTH DAY 7 OF 7 Normal [facility] Comment on above: Performed By: #### L EGN ####[facility] (DEFAULT)[address] [facility] [place] [address] Bacteria identified Cx Nom (Unsp spec) NO GROWTH DAY 7 OF 7 Normal [facility] Comment on above: Order Comment: BAL l egionella culture Performed By: #### L EGN ####[facility] (DEFAULT)[address] [place] [address] LEGIONELLA PCRon 09-02-2023 Legionella species, Culture BAL RML Normal [facility] Comment on above: Performed By: #### Y LEGRP ####[facility] (DEFAULT)[address] [place] [address] Legionella, pcr result Negative Normal Not Applicable [facility] Comment on above: Result Comment: ---- ADDITIONAL INFORMATION This test was developed and its performance characteristicsdetermined by [facility] in a manner consistent with CLIArequirements. This test has not been cleared or approved bythe U.S. Food and Drug Administration.Test Performed by:[address] [address]Klh Director: Rosendo Bose M.D. Ph.D.; CLIA# [id number] Performed By: #### Y LEGRP ####[facility] (DEFAULT)[address] [place] [address] LOWER RESPIRATORY CULTURE, B ACTERIALon 09-02-2023 Bacteria identified Cx Nom (Unsp spec) NO GROWTH DAY 2 OF 2 Normal [facility] Comment on above: Performed By: #### R ES ####[facility] (DEFAULT)[address] [place] [address] Microscopic observation Gram stain Nom (Unsp spec) Normal [facility] Comment on above: Result Comment: Cyto centrifuge preparationNeutrophils, RareRed Blood Cells PresentNo organisms seen Performed By: #### R ES ####[facility] (DEFAULT)[address] [place] [address] Bacteria identified Cx Nom (Unsp spec) NO GROWTH DAY 2 OF 2 Normal [facility] Comment on above: Order Comment: BAL b acterial respiratory culture Performed By: #### R ES ####[facility] (DEFAULT)[address] [place] [address] Microscopic observation Gram stain Nom (Unsp spec) Normal [facility] Comment on above: Order Comment: BAL b acterial respiratory culture Result Comment: Cyto centrifuge preparationNeutrophils, ModerateRed Blood Cells PresentNo organisms seen Performed By: #### R ES ####[facility] (DEFAULT)[address] [place] [address] MAGNESIUMon 09-02-2023 Magnesium [Mass/Vol] 1.7 mg/dL Normal 1.6-2.6 [facility] Comment on above: Performed By: #### M MERLE, CHM7, HFP ####[facility] (DEFAULT)[address] [place] [address] Interpretation and review of laboratory results Normal [facility] Magnesium [Mass/Vol] 1.7 mg/dL 1.6 - 2 .6 mg/dL [facility] No Panel Informationon 09-02 Interpretation and review of laboratory results Abnormal [facility] PNEUMOCYSTIS JIROVECI,PCRon 09-02-2023 PN Report Status DNR Normal [facility] Comment on above: Performed By: #### Y PNRP ####[facility] (DEFAULT)[address] [place] [address] PN Specimen Source BAL RML Normal [facility] Comment on above: Performed By: #### Y PNRP ####[facility] (DEFAULT)[address] [place] [address] Pneum jiroveci comment DNR Normal [facility] Comment on above: Performed By: #### Y PNRP ####[facility] (DEFAULT)[address] [place] [address] Pneumocystis jiroveci,PCR result Negative Normal Not Applicable [facility] Comment on above: Result Comment: ---- ADDITIONAL INFORMATION This test was developed and its performance characteristicsdetermined by [facility] in a manner consistent with CLIArequirements. This test has not been cleared or approved bythe U.S. Food and Drug Administration.Test Performed by:[address] [address]Gfi Director: Rosendo Bose M.D. Ph.D.; CLIA# [id number] Performed By: #### Y PNRP ####[facility] (DEFAULT)[address] [place] [address] PN Report Status DNR Normal [facility] Comment on above: Performed By: #### Y PNRP ####[facility] (DEFAULT)[address] [place] [address] PN Specimen Source BAL LLL Normal [facility] Comment on above: Performed By: #### Y PNRP ####[facility] (DEFAULT)[address] [place] [address] Pneum jiroveci comment DNR Normal [facility] Comment on above: Performed By: #### Y PNRP ####[facility] (DEFAULT)[address] [place] [address] Pneumocystis jiroveci,PCR result Negative Normal Not Applicable [facility] Comment on above: Result Comment: ---- ADDITIONAL INFORMATION This test was developed and its performance characteristicsdetermined by [facility] in a manner consistent with CLIArequirements. This test has not been cleared or approved bythe U.S. Food and Drug Administration.Test Performed by:[place] [id number] Director: Rosendo Bose M.D. Ph.D.; CLIA# [id number] Performed By: #### Y PNRP ####[facility] (DEFAULT)[address] [place] [address] TACROLIMUS LEVEL, TROUGH (ND E DRUG LEVEL)on 09-02-2023 Interpretation and review of laboratory results Normal [facility] Tacrolimus (Bld) [Mass/Vol] 4.2 ng/mL [facility] Tacrolimus, Trough 4.2 ng/mL Normal Bone Susana ow Transplant: 4.0-12.0, Therapeutic: 5.0-15.0 [facility] Comment on above: Order Comment: Dilan e draw at specified interval PRIOR to dose. Do not hold dose to wait for level. Specimens batched twice per day, (M-F) and once per day weekendsMethod performed is a chemiluminescent microparticle immunoasssay on the [employer] i2000.The range is based on experience at [facility] and users should be aware that target concentrations vary widely depending on concomitant therapy, time post-transplant, and desired degree of immunosuppression. Performed By: #### T ACRO ####[facility] (DEFAULT)[address] [place] [address] CBC,PLATELETSon 09-01-2023 Hematocrit (Bld) [Volume fraction] 38.9 % Low 39.6-48.8 [facility] Comment on above: Performed By: #### H EMOGC ####[facility] (DEFAULT)[address] [place] [address] Hemoglobin (Bld) [Mass/Vol] 12.7 g/dL Low 13.4-16.8 [facility] Comment on above: Performed By: #### H EMOGC ####[facility] (DEFAULT)[address] [place] [address] MCV (RBC) [Entitic vol] 84.6 fL Normal 79.0-94.5 [facility] Comment on above: Performed By: #### H EMOGC ####[facility] (DEFAULT)[address] [place] [address] Mean Cell Hgb 27.6 pg Normal 26.1-33.3 [facility] Comment on above: Performed By: #### H EMOGC ####[facility] (DEFAULT)[address] [place] [address] Mean Cell Hgb Conc 32.6 g/dL Normal 31.9-36.5 [facility] Comment on above: Performed By: #### H EMOGC ####[facility] (DEFAULT)[address] [place] [address] Platelet mean volume (Bld) [Entitic vol] 9.4 fL Normal 8.7-12.3 [facility] Comment on above: Performed By: #### H EMO ####[facility] (DEFAULT)[address] [place] [address] Platelets (Bld) [#/Vol] 209 10*3/uL Normal 146-337 [facility] Comment on above: Performed By: #### H EMO ####[facility] (DEFAULT)[address] [place] [address] RBC (Bld) [#/Vol] 4.60 10*6/uL Normal 4.38-5.83 [facility] Comment on above: Performed By: #### H EMO ####[facility] (DEFAULT)[address] [place] [address] RBC Distribution 13.4 % Normal 10.9-14.3 [facility] Comment on above: Performed By: #### H EMO ####[facility] (DEFAULT)[address] [place] [address] WBC (Bld) [#/Vol] 4.41 10*3/uL Normal 3.73-10.10 [facility] Comment on above: Performed By: #### H EMOGC ####[facility] (DEFAULT)[address] [place] [address] Erythrocyte distribution width (RBC) [Ratio] 13.4 % 10.9 - 14.3 % [facility] Hematocrit (Bld) [Volume fraction] 38.9 % Low 39.6 - 48.8 % [facility] Hemoglobin (Bld) [Mass/Vol] 12.7 g/dL Low 13.4 - 16.8 g/dL [facility] Interpretation and review of laboratory results Abnormal [facility] MCH (RBC) [Entitic mass] 27.6 pg 26.1 - 33.[address] [facility] MCHC (RBC) [Mass/Vol] 32.6 g/dL 31.9 - 36.5 g/dL [facility] MCV (RBC) [Entitic vol] 84.6 fL 79.0 - 94.[address] [facility] Platelet mean volume (Bld) [Entitic vol] 9.4 fL 8.7 - 12.[address] [facility] Platelets (Bld) [#/Vol] 209 10*3/uL 146 - 337 K/uL [facility] RBC (Bld) [#/Vol] 4.60 10*6/uL [facility] WBC (Bld) [#/Vol] 4.41 10*3/uL 3.73 - 10. 10 K/uL [facility] CHEM 7 (LYTES,BUN,CREA,GLUC) on 09-01-2023 Anion gap [Moles/Vol] 14 mmol/L Normal 7-17 [facility] Comment on above: Performed By: #### Rod BLOOM CHM7, HFP ####[facility] (DEFAULT)[address] [place] [address] Chloride [Moles/Vol] 103 mmol/L Normal 98-108 [facility] Comment on above: Performed By: #### Rod BLOOM CHM7, HFP ####[facility] (DEFAULT)[address] [place] [address] CO2 [Moles/Vol] 21 mmol/L Normal 21-31 [facility] Comment on above: Performed By: #### Rod BLOOM CHM7, HFP ####[facility] (DEFAULT)[address] [place] [address] Creatinine [Mass/Vol] 1.16 mg/dL Normal 0.70-1.30 [facility] Comment on above: Performed By: #### Rod GO CHM7, HFP ####[facility] (DEFAULT)[address] [place] [address] GFR/1.73 sq M.predicted among non-blacks MDRD (S/P/Bld) [Vol rate/Area] 76 mL/min/{1.73_m2} Normal >=60 [facility] Comment on above: Result Comment: Repo rted eGFR is based on the CKD-EPI 2020 equation using creatinine, age, and sex. Performed By: #### NATHANIEL RAMÍREZ, HFP ####[facility] (DEFAULT)[address] [place] [address] Glucose [Mass/Vol] 117 mg/dL High 70-99 [facility] Comment on above: Performed By: #### NATHANIEL RAMÍREZ, HFP ####[facility] (DEFAULT)[address] [place] [address] Osmolality [Osmolality] 285 mosm/kg Normal 278-305 [facility] Comment on above: Performed By: #### NATHANIEL RAMÍREZ, HFP ####[facility] (DEFAULT)[address] [place] [address] Potassium [Moles/Vol] 4.2 mmol/L Normal 3.5-5.0 [facility] Comment on above: Performed By: #### NATHANIEL RAMÍREZ, HFP ####[facility] (DEFAULT)[address] [place] [address] Sodium [Moles/Vol] 134 mmol/L Low 135-145 [facility] Comment on above: Performed By: #### NATHANIEL RAMÍREZ, HFP ####[facility] (DEFAULT)[address] [place] [address] Urea nitrogen [Mass/Vol] 18 mg/dL Normal 7-25 [facility] Comment on above: Performed By: #### NATHANIEL RAMÍREZ, HFP ####[facility] (DEFAULT)[address] [place] [address] Urea nitrogen/Creatinine [Mass ratio] 16 mg/mg Normal [facility] Comment on above: Performed By: #### M MERLE CHM7, HFP ####[facility] (DEFAULT)[address] [place] [address] Anion gap [Moles/Vol] 14 mmol/L 7 - 17 mmol/L [facility] Chloride [Moles/Vol] 103 mmol/L 98 - 10 8 mmol/L [facility] CO2 [Moles/Vol] 21 mmol/L 21 - 31 mmol/L [facility] Creatinine [Mass/Vol] 1.16 mg/dL 0.70 - 1.30 mg/dL [facility] eGFR, CKD-EPI, Male 76 - PINF [facility] Glucose [Mass/Vol] 117 mg/dL High 70 - 99 mg/dL [facility] Osmolality Calc [Osmolality] 285 [facility] Potassium [Moles/Vol] 4.2 mmol/L 3.5 - 5.0 mmol/L [facility] Sodium [Moles/Vol] 134 mmol/L Low 135 - 145 mmol/L [facility] Urea nitrogen [Mass/Vol] 18 mg/dL 7 - 25 mg/dL [facility] Urea nitrogen/Creatinine [Mass ratio] 16 mg/mg [facility] CRYPTOCOCCAL ANTIGENon 09-01 Cryptococcus Antigen,Serum Negative Normal Negative [facility] Comment on above: Performed By: #### C RAG ####[facility] (DEFAULT)[address] [place] [address] Cryptococcus sp Ag Ql (S) Negative Negative [facility] Interpretation and review of laboratory results Normal [facility] HEPATIC FUNCTION PANELon Albumin [Mass/Vol] 3.3 g/dL Low 3.5-5.0 [facility] Comment on above: Performed By: #### M MERLE CHM7, HFP ####[facility] (DEFAULT)[address] [place] [address] ALP [Catalytic activity/Vol] 112 U/L Normal 32-126 [facility] Comment on above: Performed By: #### M MERLE CHM7, HFP ####[facility] (DEFAULT)[address] [place] [address] ALT [Catalytic activity/Vol] 21 U/L Normal 10-52 [facility] Comment on above: Performed By: #### M MERLE CHM7, HFP ####[facility] (DEFAULT)[address] [place] [address] AST [Catalytic activity/Vol] 29 U/L Normal 10-39 [facility] Comment on above: Performed By: #### M TJ BLOOM7, HFP ####[facility] (DEFAULT)[address] [place] [address] Bilirubin [Mass/Vol] 1.0 mg/dL Normal <1.5 [facility] Comment on above: Performed By: #### Rod BLOOM CHM7, HFP ####[facility] (DEFAULT)[address] [place] [address] Bilirubin.indirect [Mass/Vol] 0.2 mg/dL Normal <0.3 [facility] Comment on above: Performed By: #### M MERLE CHM7, HFP ####[facility] (DEFAULT)[address] [place] [address] Protein [Mass/Vol] 6.8 g/dL Normal 6.4-8.3 [facility] Comment on above: Performed By: #### M MERLE CHM7, HFP ####[facility] (DEFAULT)[address] [place] [address] Albumin [Mass/Vol] 3.3 g/dL Low 3.5 - 5.0 g/dL [facility] ALP [Catalytic activity/Vol] 112 U/L 32 - 126 U/L [facility] ALT [Catalytic activity/Vol] 21 U/L 10 - 52 U/L [facility] AST [Catalytic activity/Vol] 29 U/L 10 - 39 U/L [facility] Bilirubin [Mass/Vol] 1.0 mg/dL NINF - 1.5 mg/dL [facility] Bilirubin.direct [Mass/Vol] 0.2 mg/dL NINF - 0.3 mg/dL [facility] Protein [Mass/Vol] 6.8 g/dL 6.4 - 8.3 g/dL [facility] L. pneumophila 1 Ag IA Ql (U )Ordered By: Carolin Miles on 09-01-2023 Interpretation and review of laboratory results Normal [facility] URINARY AGOrdered By: Carolin Miles on 09-01-2023 L. pneumophila 1 Ag IA Ql (U) Negative Negative [facility] MAGNESIUMon 09-01-2023 Magnesium [Mass/Vol] 1.6 mg/dL Normal 1.6-2.6 [facility] Comment on above: Performed By: #### M , M7, [facility] ####[facility] (DEFAULT)[address] [place] [address] Interpretation and review of laboratory results Normal [facility] Magnesium [Mass/Vol] 1.6 mg/dL 1.6 - 2 .6 mg/dL [facility] No Panel Informationon 09-01 Interpretation and review of laboratory results Abnormal [facility] PARVOVIRUS (B19) DNA, PCR, B LOODon 09-01-2023 PARVOVIRUS B19 BY RAPID PCR Not detected Normal Not Detected [facility] Comment on above: Result Comment: The primers/probe used in this assay will detectparvovirus B19 and V9 (genotypes 1 # 3) but maynot detect parvovirus genotype 2. The majority ofcirculating Parvovirus B19 strains in the [facility] are genotype 1. Genotype 2 is not believed tocirculate widely in the [facility], but has beenassociated with similar clinical features as genotype1. Genotype 3 is most prevalent in some [place] [facility] [facility].This test was developed and its analyticalperformance characteristics have been determinedby [employer] [place], [place].It has not been cleared or approved by the FDA. Thisassay has been validated pursuant to the CLIAregulations and is used for clinical purposes.Test Performed at:[facility] [place] [id number] Benavides M.D., Ph.D.,Director of Laboratories Performed By: #### Y PRVP ####[facility] (DEFAULT)[address] [place] [address] ND SPEC SOURCE Whole Blood Normal [facility] Comment on above: Performed By: #### Y PRVP ####[facility] (DEFAULT)[address] [place] [address] ASPERGILLUS (GALACTOMANNAN), ANTIGENon 08-31-2023 Aspergillus Antigen <0.500 Normal <0.5 [facility] Comment on above: Result Comment: ---- ADDITIONAL INFORMATION This is a qualitative test and the resulted index value isnot indicative of disease severity. Serial testing isrecommended for patients at high risk for invasiveaspergillosis.This assay was performed using the FDA-cleared [employer] [place] Aspergillus Galactomannan EIA.Test Performed by:[facility] [place] [id number] Director: Rosendo Bose M.D. Ph.D.; CLIA# [id number] Performed By: #### Y ASPR ####[facility] (DEFAULT)[address] [place] [address], [place] [address] CBC,PLATELETSon 08-31-2023 Hematocrit (Bld) [Volume fraction] 39.4 % Low 39.6-48.8 [facility] Comment on above: Performed By: #### H EMO ####[facility] (DEFAULT)[address] [place] [address] Hemoglobin (Bld) [Mass/Vol] 12.8 g/dL Low 13.4-16.8 [facility] Comment on above: Performed By: #### H EMOGC ####[facility] (DEFAULT)[address] [place] [address] MCV (RBC) [Entitic vol] 85.1 fL Normal 79.0-94.5 [facility] Comment on above: Performed By: #### H EMOGC ####[facility] (DEFAULT)[address] [facility] [place] [address] Mean Cell Hgb 27.6 pg Normal 26.1-33.3 [facility] Comment on above: Performed By: #### H EMOGC ####[facility] (DEFAULT)[address] [facility] [place] [address] Mean Cell Hgb Conc 32.5 g/dL Normal 31.9-36.5 [facility] Comment on above: Performed By: #### H EMOGC ####[facility] (DEFAULT)[address] [facility] [place] [address] Platelet mean volume (Bld) [Entitic vol] 9.6 fL Normal 8.7-12.3 [facility] Comment on above: Performed By: #### H EMOGC ####[facility] (DEFAULT)[address] [place] [address] Platelets (Bld) [#/Vol] 228 10*3/uL Normal 146-337 [facility] Comment on above: Performed By: #### H EMOGC ####[facility] (DEFAULT)[address] [facility] [place] [address] RBC (Bld) [#/Vol] 4.63 10*6/uL Normal 4.38-5.83 [facility] Comment on above: Performed By: #### H EMOGC ####[facility] (DEFAULT)[address] [facility] [place] [address] RBC Distribution 13.3 % Normal 10.9-14.3 [facility] Comment on above: Performed By: #### H [facility] ####[facility] (DEFAULT)[address] [place] [address] WBC (Bld) [#/Vol] 4.77 10*3/uL Normal 3.73-10.10 [facility] Comment on above: Performed By: #### H [facility] ####[facility] (DEFAULT)[address] [place] [address] Erythrocyte distribution width (RBC) [Ratio] 13.3 % 10.9 - 14.3 % [facility] Hematocrit (Bld) [Volume fraction] 39.4 % Low 39.6 - 48.8 % [facility] Hemoglobin (Bld) [Mass/Vol] 12.8 g/dL Low 13.4 - 16.8 g/dL [facility] Interpretation and review of laboratory results Abnormal [facility] MCH (RBC) [Entitic mass] 27.6 pg 26.1 - 33.[address] [facility] MCHC (RBC) [Mass/Vol] 32.5 g/dL 31.9 - 36.5 g/dL [facility] MCV (RBC) [Entitic vol] 85.1 fL 79.0 - 94.[address] [facility] Platelet mean volume (Bld) [Entitic vol] 9.6 fL 8.7 - 12.[address] [facility] Platelets (Bld) [#/Vol] 228 10*3/uL 146 - 337 K/uL [facility] RBC (Bld) [#/Vol] 4.63 10*6/uL [facility] WBC (Bld) [#/Vol] 4.77 10*3/uL 3.73 - 10. 10 K/uL [facility] CHEM 7 (LYTES,BUN,CREA,GLUC) on 08-31-2023 Anion gap [Moles/Vol] 13 mmol/L Normal 7-17 [facility] Comment on above: Performed By: #### M GO, CHM7, HFP, FERIB, PROCAL ####[facility] (DEFAULT)[address] [place] [address] Chloride [Moles/Vol] 102 mmol/L Normal 98-108 [facility] Comment on above: Performed By: #### M GO, CHM7, HFP, FERIB, PROCAL ####[facility] (DEFAULT)[address] [place] [address] CO2 [Moles/Vol] 23 mmol/L Normal 21-31 [facility] Comment on above: Performed By: #### M GO, CHM7, HFP, FERIB, PROCAL ####[facility] (DEFAULT)[address] [place] [address] Creatinine [Mass/Vol] 1.37 mg/dL High 0.70-1.30 [facility] Comment on above: Performed By: #### M GO, CHM7, HFP, FERIB, PROCAL ####[facility] (DEFAULT)[address] [place] [address] GFR/1.73 sq M.predicted among non-blacks MDRD (S/P/Bld) [Vol rate/Area] 62 mL/min/{1.73_m2} Normal >=60 [facility] Comment on above: Result Comment: Repo rted eGFR is based on the CKD-EPI 2020 equation using creatinine, age, and sex. Performed By: #### M GO, CHM7, HFP, FERIB, PROCAL ####[facility] (DEFAULT)[address] [facility] [place] [address] Glucose [Mass/Vol] 112 mg/dL High 70-99 [facility] Comment on above: Performed By: #### M GO, CHM7, HFP, FERIB, PROCAL ####[facility] (DEFAULT)[address] [facility] [place] [address] Osmolality [Osmolality] 284 mosm/kg Normal 278-305 [facility] Comment on above: Performed By: #### M GO, CHM7, HFP, FERIB, PROCAL ####[facility] (DEFAULT)[address] [place] [address] Potassium [Moles/Vol] 4.4 mmol/L Normal 3.5-5.0 [facility] Comment on above: Performed By: #### M GO, CHM7, HFP, FERIB, PROCAL ####[facility] (DEFAULT)[address] [place] [address] Sodium [Moles/Vol] 134 mmol/L Low 135-145 [facility] Comment on above: Performed By: #### M GO, CHM7, HFP, FERIB, PROCAL ####[facility] (DEFAULT)[address] [place] [address] Urea nitrogen [Mass/Vol] 16 mg/dL Normal 7-25 [facility] Comment on above: Performed By: #### M GO, CHM7, HFP, FERIB, PROCAL ####[facility] (DEFAULT)[address] [facility] [place] [address] Urea nitrogen/Creatinine [Mass ratio] 12 mg/mg Normal [facility] Comment on above: Performed By: #### M GO, CHM7, HFP, FERIB, PROCAL ####[facility] (DEFAULT)[address] [facility] [place] [address] Anion gap [Moles/Vol] 13 mmol/L 7 - 17 mmol/L [facility] Chloride [Moles/Vol] 102 mmol/L 98 - 10 8 mmol/L [facility] CO2 [Moles/Vol] 23 mmol/L 21 - 31 mmol/L [facility] Creatinine [Mass/Vol] 1.37 mg/dL High 0.70 - 1.30 mg/dL [facility] eGFR, CKD-EPI, Male 62 - PINF [facility] Glucose [Mass/Vol] 112 mg/dL High 70 - 99 mg/dL [facility] Osmolality Calc [Osmolality] 284 [facility] Potassium [Moles/Vol] 4.4 mmol/L 3.5 - 5.0 mmol/L [facility] Sodium [Moles/Vol] 134 mmol/L Low 135 - 145 mmol/L [facility] Urea nitrogen [Mass/Vol] 16 mg/dL 7 - 25 mg/dL [facility] Urea nitrogen/Creatinine [Mass ratio] 12 mg/mg [facility] CT ABDOMEN/PELVIS WITHOUT CO NTRASTon 08-31-2023 CT ABDOMEN/PELVIS WITHOUT CONTRAST Normal [facility] CT Abdomen and Pelvis WO con traston 08-31-[address] [facility] Radiology Study observation (narrative) [facility] CT Abdomen and Pelvis WO con trastOrdered By: Chavez Larkin on 08-31-2023 [facility] Work Phone: CT CHEST WITHOUT CONTRASTon 08-31-2023 CT CHEST WITHOUT CONTRAST Normal [facility] CT Chest WO contraston 08-[address] [facility] Radiology Study observation (narrative) [facility] CT Chest WO contrastOrdered By: Daisha Patterson on 08-31-2023 [facility] Work Phone: FERRITINon 08-31-2023 Ferritin [Mass/Vol] 409.0 ng/mL High 10.5 - 3 07.3 ng/mL [facility] Interpretation and review of laboratory results Abnormal [facility] Ferritin [Mass/Vol] 409.0 ng/mL High 10.5-307.3 [facility] Comment on above: Performed By: #### M HELEN BLOOMMJessica, TAVO, ANG DOMINIQUE ####[facility] (DEFAULT)[address] [place] [address] HEPATIC FUNCTION PANELon Albumin [Mass/Vol] 3.3 g/dL Low 3.5-5.0 [facility] Comment on above: Performed By: #### M GO, CHM7, HFP, FERIB, PROCAL ####[facility] (DEFAULT)[address] [place] [address] ALP [Catalytic activity/Vol] 113 U/L Normal 32-126 [facility] Comment on above: Performed By: #### M GO, CHM7, HFP, FERIB, PROCAL ####[facility] (DEFAULT)[address] [place] [address] ALT [Catalytic activity/Vol] 25 U/L Normal 10-52 [facility] Comment on above: Performed By: #### M GO, CHM7, HFP, FERIB, PROCAL ####[facility] (DEFAULT)[address] [place] [address] AST [Catalytic activity/Vol] 31 U/L Normal 10-39 [facility] Comment on above: Performed By: #### M GO, CHM7, HFP, FERIB, PROCAL ####[facility] (DEFAULT)[address] [place] [address] Bilirubin [Mass/Vol] 1.1 mg/dL Normal <1.5 [facility] Comment on above: Performed By: #### M GO, CHM7, HFP, FERIB, PROCAL ####[facility] (DEFAULT)[address] [place] [address] Bilirubin.indirect [Mass/Vol] 0.3 mg/dL High <0.3 [facility] Comment on above: Performed By: #### M GO, CHM7, HFP, FERIB, PROCAL ####[facility] (DEFAULT)[address] [place] [address] Protein [Mass/Vol] 7.0 g/dL Normal 6.4-8.3 [facility] Comment on above: Performed By: #### M GO, CHM7, HFP, FERIB, PROCAL ####[facility] (DEFAULT)[address] [place] [address] Albumin [Mass/Vol] 3.3 g/dL Low 3.5 - 5.0 g/dL [facility] ALP [Catalytic activity/Vol] 113 U/L 32 - 126 U/L [facility] ALT [Catalytic activity/Vol] 25 U/L 10 - 52 [facility] AST [Catalytic activity/Vol] 31 U/L 10 - 39 U/L [facility] Bilirubin [Mass/Vol] 1.1 mg/dL NINF - 1.5 mg/dL [facility] Bilirubin.direct [Mass/Vol] 0.3 mg/dL High NINF - 0.3 mg/dL [facility] Protein [Mass/Vol] 7.0 g/dL 6.4 - 8.3 g/dL [facility] LEGIONELLA URINARY AGon 10-0 Legionella Urinary Antigen Negative Normal Negative [facility] Comment on above: Performed By: #### L EGION ####[facility] (DEFAULT)[address] [place] [address] MAGNESIUMon 08-31-2023 Magnesium [Mass/Vol] 1.7 mg/dL Normal 1.6-2.6 [facility] Comment on above: Performed By: #### M GO, CHM7, HFP, FERIB, PROCAL ####[facility] (DEFAULT)[address] [place] [address] Interpretation and review of laboratory results Normal [facility] Magnesium [Mass/Vol] 1.7 mg/dL 1.6 - 2 .6 mg/dL [facility] No Panel Informationon 08-31 Interpretation and review of laboratory results Abnormal [facility] PROCALCITONINon 08-31-2023 Interpretation and review of laboratory results Normal [facility] Procalcitonin [Mass/Vol] 0.23 ng/mL NINF - 0.50 ng[facility] Procalcitonin 0.23 ng/mL Normal <0.50 [facility] Comment on above: Result Comment: Proc [...] and trend procalcitonin in various clinical settings. [email or web address]/[email or web address]/[email or web address]?[email or web address]=/[email or web address]/[email or web address]/Documents/[email or web address] [email or web address].docx&action=[email or web address] common cutoffs associated with bacterial infections are as follows.Respiratory tract infections: >0.25 ng/mLSepsis/septic shock: >0.5 ng/mLProcalcitonin should not be used alone as a diagnostic tool, however. All procalcitonin results should be interpreted in association with the patients clinical condition and all laboratory findings. Performed By: #### M GO, CHM7, HFP, FERIB, PROCAL ####[facility] (DEFAULT)[address] [place] [address] TACROLIMUS LEVEL, TROUGH (ND E DRUG LEVEL)Ordered By: Yanira Marcum on 08-31-2023 Interpretation and review of laboratory results Normal [facility] Tacrolimus (Bld) [Mass/Vol] 5.9 ng/mL [facility] TACROLIMUS LEVEL, TROUGH (ND E DRUG LEVEL)on 08-31-2023 Tacrolimus, Trough 5.9 ng/mL Normal Bone Susana ow Transplant: 4.0-12.0, Therapeutic: 5.0-15.0 [facility] Comment on above: Order Comment: Pleas e draw at specified interval PRIOR to dose. Do not hold dose to wait for level. Specimens batched twice per day, (M-F) and once per day weekendsMethod performed is a chemiluminescent microparticle immunoasssay on the [employer]per i2000.The range is based on experience at [facility] and users should be aware that target concentrations vary widely depending on concomitant therapy, time post-transplant, and desired degree of immunosuppression. Performed By: #### T ACRO ####[facility] (DEFAULT)[address] [place] [address] URINE CULTUREOrdered By: Jorge crowe Held on 08-31-2023 Bacteria identified Cx Nom (Unsp spec) No Growth [facility] DARYL AURIS SCREEN BY PCRO rdered By: Mynor Alejandro on 08-30-2023 Daryl auris Screen by PCR Not detected Not Detected [facility] Interpretation and review of laboratory results Normal [facility] CBC,PLATELETSon 08-30-2023 Hematocrit (Bld) [Volume fraction] 41.3 % Normal 39.6-48.8 [facility] Comment on above: Performed By: #### H EMOGC ####[facility] (DEFAULT)[address] [place] [address], [place] [address] Hemoglobin (Bld) [Mass/Vol] 13.2 g/dL Low 13.4-16.8 [facility] Comment on above: Performed By: #### H EMOGC ####[facility] (DEFAULT)[address] [place] [address] MCV (RBC) [Entitic vol] 85.5 fL Normal 79.0-94.5 [facility] Comment on above: Performed By: #### H EMOGC ####[facility] (DEFAULT)[address] [place] [address] Mean Cell Hgb 27.3 pg Normal 26.1-33.3 [facility] Comment on above: Performed By: #### H EMOGC ####[facility] (DEFAULT)[address] [place] [address] Mean Cell Hgb Conc 32.0 g/dL Normal 31.9-36.5 [facility] Comment on above: Performed By: #### H EMOGC ####[facility] (DEFAULT)[address] [facility] [place] [address] Platelet mean volume (Bld) [Entitic vol] 9.2 fL Normal 8.7-12.3 [facility] Comment on above: Performed By: #### H EMO ####[facility] (DEFAULT)[address] [facility] [place] [address] Platelets (Bld) [#/Vol] 235 10*3/uL Normal 146-337 [facility] Comment on above: Performed By: #### H EMO ####[facility] (DEFAULT)[address] [place] [address] RBC (Bld) [#/Vol] 4.83 10*6/uL Normal 4.38-5.83 [facility] Comment on above: Performed By: #### H EMO ####[facility] (DEFAULT)[address] [place] [address] RBC Distribution 13.3 % Normal 10.9-14.3 [facility] Comment on above: Performed By: #### H EMO ####[facility] (DEFAULT)[address] [place] [address] WBC (Bld) [#/Vol] 4.96 10*3/uL Normal 3.73-10.10 [facility] Comment on above: Performed By: #### H EMO ####[facility] (DEFAULT)[address] [place] [address] Erythrocyte distribution width (RBC) [Ratio] 13.3 % 10.9 - 14.3 % [facility] Hematocrit (Bld) [Volume fraction] 41.3 % 39.6 - 48.8 % [facility] Hemoglobin (Bld) [Mass/Vol] 13.2 g/dL Low 13.4 - 16.8 g/dL [facility] Interpretation and review of laboratory results Abnormal [facility] MCH (RBC) [Entitic mass] 27.3 pg 26.1 - 33.[address] [facility] MCHC (RBC) [Mass/Vol] 32.0 g/dL 31.9 - 36.5 g/dL [facility] MCV (RBC) [Entitic vol] 85.5 fL 79.0 - 94.[address] [facility] Platelet mean volume (Bld) [Entitic vol] 9.2 fL 8.7 - 12.[address] [facility] Platelets (Bld) [#/Vol] 235 10*3/uL 146 - 337 K/uL [facility] RBC (Bld) [#/Vol] 4.83 10*6/uL [facility] WBC (Bld) [#/Vol] 4.96 10*3/uL 3.73 - 10. 10 K/uL [facility] CHEM 7 (LYTES,BUN,CREA,GLUC) on 08-30-2023 Anion gap [Moles/Vol] 14 mmol/L Normal 7-17 [facility] Comment on above: Performed By: #### Rod BLOOM CHM7, HFP ####[facility] (DEFAULT)[address] [place] [address] Chloride [Moles/Vol] 102 mmol/L Normal 98-108 [facility] Comment on above: Performed By: #### Rod BLOOM CHM7, HFP ####[facility] (DEFAULT)[address] [place] [address] CO2 [Moles/Vol] 20 mmol/L Low 21-31 [facility] Comment on above: Performed By: #### Rod BLOOM CHM7, HFP ####[facility] (DEFAULT)[address] [place] [address] Creatinine [Mass/Vol] 1.56 mg/dL High 0.70-1.30 [facility] Comment on above: Performed By: #### Rod BLOOM CHM7, HFP ####[facility] (DEFAULT)[address] [place] [address] GFR/1.73 sq M.predicted among non-blacks MDRD (S/P/Bld) [Vol rate/Area] 53 mL/min/{1.73_m2} Low >=60 [facility] Comment on above: Result Comment: Repo rted eGFR is based on the CKD-EPI 2020 equation using creatinine, age, and sex. Performed By: #### NATHANIEL RAMÍREZ, HFP ####[facility] (DEFAULT)[address] [place] [address] Glucose [Mass/Vol] 123 mg/dL High 70-99 [facility] Comment on above: Performed By: #### NATHANIEL RAMÍREZ, HFP ####[facility] (DEFAULT)[address] [place] [address] Osmolality [Osmolality] 281 mosm/kg Normal 278-305 [facility] Comment on above: Performed By: #### NATHANIEL RAMÍREZ, HFP ####[facility] (DEFAULT)[address] [place] [address] Potassium [Moles/Vol] 4.3 mmol/L Normal 3.5-5.0 [facility] Comment on above: Performed By: #### NATHANIEL RAMÍREZ, HFP ####[facility] (DEFAULT)[address] [place] [address] Sodium [Moles/Vol] 132 mmol/L Low 135-145 [facility] Comment on above: Performed By: #### NATHANIEL RAMÍREZ, HFP ####[facility] (DEFAULT)[address] [place] [address] Urea nitrogen [Mass/Vol] 16 mg/dL Normal 7-25 [facility] Comment on above: Performed By: #### NATHANIEL RAMÍREZ, HFP ####[facility] (DEFAULT)[address] [place] [address] Urea nitrogen/Creatinine [Mass ratio] 10 mg/mg Normal [facility] Comment on above: Performed By: #### M TJ BLOOM7, HFP ####[facility] (DEFAULT)[address] [place] [address] Anion gap [Moles/Vol] 14 mmol/L 7 - 17 [facility] Chloride [Moles/Vol] 102 mmol/L 98 - 10 8 mmol/L [facility] CO2 [Moles/Vol] 20 mmol/L Low 21 - 31 mmol/L [facility] Creatinine [Mass/Vol] 1.56 mg/dL High 0.70 - 1.30 mg/dL [facility] eGFR, CKD-EPI, Male 53 Low - PINF [facility] Glucose [Mass/Vol] 123 mg/dL High 70 - 99 mg/dL [facility] Osmolality Calc [Osmolality] 281 [facility] Potassium [Moles/Vol] 4.3 mmol/L 3.5 - 5.0 mmol/L [facility] Sodium [Moles/Vol] 132 mmol/L Low 135 - 145 mmol/L [facility] Urea nitrogen [Mass/Vol] 16 mg/dL 7 - 25 mg/dL [facility] Urea nitrogen/Creatinine [Mass ratio] 10 mg/mg [facility] EXTRA MICROon 08-30-2023 [facility] HEPATIC FUNCTION PANELon Albumin [Mass/Vol] 3.7 g/dL Normal 3.5-5.0 [facility] Comment on above: Performed By: #### M TJ BLOOM7, HFP ####[facility] (DEFAULT)[address] [place] [address] ALP [Catalytic activity/Vol] 115 U/L Normal 32-126 [facility] Comment on above: Performed By: #### M TJ BLOOM7, HFP ####[facility] (DEFAULT)[address] [place] [address] ALT [Catalytic activity/Vol] 22 U/L Normal 10-52 [facility] Comment on above: Performed By: #### M MERLE CHM7, HFP ####[facility] (DEFAULT)[address] [place] [address] AST [Catalytic activity/Vol] 34 U/L Normal 10-39 [facility] Comment on above: Performed By: #### M MERLE CHM7, HFP ####[facility] (DEFAULT)[address] [place] [address] Bilirubin [Mass/Vol] 1.2 mg/dL Normal <1.5 [facility] Comment on above: Performed By: #### M TJ BLOOM7, HFP ####[facility] (DEFAULT)[address] [place] [address] Bilirubin.indirect [Mass/Vol] 0.3 mg/dL High <0.3 [facility] Comment on above: Performed By: #### Rod BLOOM CHM7, HFP ####[facility] (DEFAULT)[address] [place] [address] Protein [Mass/Vol] 7.7 g/dL Normal 6.4-8.3 [facility] Comment on above: Performed By: #### M MERLE CHM7, HFP ####[facility] (DEFAULT)[address] [place] [address] Albumin [Mass/Vol] 3.7 g/dL 3.5 - 5.0 g/dL [facility] ALP [Catalytic activity/Vol] 115 U/L 32 - 126 U/L [facility] ALT [Catalytic activity/Vol] 22 U/L 10 - 52 U/L [facility] AST [Catalytic activity/Vol] 34 U/L 10 - 39 U/L [facility] Bilirubin [Mass/Vol] 1.2 mg/dL NINF - 1.5 mg/dL [facility] Bilirubin.direct [Mass/Vol] 0.3 mg/dL High NINF - 0.3 mg/dL [facility] Protein [Mass/Vol] 7.7 g/dL 6.4 - 8.3 g/dL [facility] MAGNESIUMon 08-30-2023 Magnesium [Mass/Vol] 1.8 mg/dL Normal 1.6-2.6 [facility] Comment on above: Performed By: #### M GO, CHM7, [facility] ####[facility] (DEFAULT)[address] [place] [address] Interpretation and review of laboratory results Normal [facility] Magnesium [Mass/Vol] 1.8 mg/dL 1.6 - 2 .6 mg/dL [facility] No Panel Informationon 08-30 Interpretation and review of laboratory results Abnormal [facility] CBC,PLATELETSon 08-29-2023 Hematocrit (Bld) [Volume fraction] 37.6 % Low 39.6-48.8 [facility] Comment on above: Performed By: #### H [facility] ####[facility] (DEFAULT)[address] [place] [address] Hemoglobin (Bld) [Mass/Vol] 12.2 g/dL Low 13.4-16.8 [facility] Comment on above: Performed By: #### H EMO ####[facility] (DEFAULT)[address] [place] [address] MCV (RBC) [Entitic vol] 85.1 fL Normal 79.0-94.5 [facility] Comment on above: Performed By: #### H EMO ####[facility] (DEFAULT)[address] [place] [address] Mean Cell Hgb 27.6 pg Normal 26.1-33.3 [facility] Comment on above: Performed By: #### H EMO ####[facility] (DEFAULT)[address] [place] [address] Mean Cell Hgb Conc 32.4 g/dL Normal 31.9-36.5 [facility] Comment on above: Performed By: #### H EMO ####[facility] (DEFAULT)[address] [place] [address] Platelet mean volume (Bld) [Entitic vol] 9.4 fL Normal 8.7-12.3 [facility] Comment on above: Performed By: #### H EMO ####[facility] (DEFAULT)[address] [place] [address] Platelets (Bld) [#/Vol] 233 10*3/uL Normal 146-337 [facility] Comment on above: Performed By: #### H EMO ####[facility] (DEFAULT)[address] [place] [address] RBC (Bld) [#/Vol] 4.42 10*6/uL Normal 4.38-5.83 [facility] Comment on above: Performed By: #### H EMO ####[facility] (DEFAULT)[address] [place] [address] RBC Distribution 13.4 % Normal 10.9-14.3 [facility] Comment on above: Performed By: #### H EMO ####[facility] (DEFAULT)[address] [place] [address] WBC (Bld) [#/Vol] 4.92 10*3/uL Normal 3.73-10.10 [facility] Comment on above: Performed By: #### H EMO ####[facility] (DEFAULT)[address] [place] [address] Erythrocyte distribution width (RBC) [Ratio] 13.4 % 10.9 - 14.3 % [facility] Hematocrit (Bld) [Volume fraction] 37.6 % Low 39.6 - 48.8 % [facility] Hemoglobin (Bld) [Mass/Vol] 12.2 g/dL Low 13.4 - 16.8 g/dL [facility] Interpretation and review of laboratory results Abnormal [facility] MCH (RBC) [Entitic mass] 27.6 pg 26.1 - 33.[address] [facility] MCHC (RBC) [Mass/Vol] 32.4 g/dL 31.9 - 36.5 g/dL [facility] MCV (RBC) [Entitic vol] 85.1 fL 79.0 - 94.[address] [facility] Platelet mean volume (Bld) [Entitic vol] 9.4 fL 8.7 - 12.[address] [facility] Platelets (Bld) [#/Vol] 233 10*3/uL 146 - 337 K/uL [facility] RBC (Bld) [#/Vol] 4.42 10*6/uL [facility] WBC (Bld) [#/Vol] 4.92 10*3/uL 3.73 - 10. 10 K/uL [facility] CHEM 7 (LYTES,BUN,CREA,GLUC) on 08-29-2023 Anion gap [Moles/Vol] 13 mmol/L Normal 7-17 [facility] Comment on above: Performed By: #### H FP, GGTB, MGO, CHM7 ####[facility] (DEFAULT)[address] [place] [address] Chloride [Moles/Vol] 105 mmol/L Normal 98-108 [facility] Comment on above: Performed By: #### H FP, GGTB, MGO, CHM7 ####[facility] (DEFAULT)[address] [place] [address] CO2 [Moles/Vol] 20 mmol/L Low 21-31 [facility] Comment on above: Performed By: #### H FP, GGTB, MGO, CHM7 ####[facility] (DEFAULT)[address] [place] [address] Creatinine [Mass/Vol] 1.55 mg/dL High 0.70-1.30 [facility] Comment on above: Performed By: #### H FP, GGTB, MGO, CHM7 ####[facility] (DEFAULT)[address] [place] [address] GFR/1.73 sq M.predicted among non-blacks MDRD (S/P/Bld) [Vol rate/Area] 54 mL/min/{1.73_m2} Low >=60 [facility] Comment on above: Result Comment: Repo rted eGFR is based on the CKD-EPI 2020 equation using creatinine, age, and sex. Performed By: #### H FP, GGTB, MGO, CHM7 ####[facility] (DEFAULT)[address] [facility] [place] [address] Glucose [Mass/Vol] 108 mg/dL High 70-99 [facility] Comment on above: Performed By: #### H FP, GGTB, MGO, CHM7 ####[facility] (DEFAULT)[address] [facility] [place] [address] Osmolality [Osmolality] 283 mosm/kg Normal 278-305 [facility] Comment on above: Performed By: #### H FP, GGTB, MGO, CHM7 ####[facility] (DEFAULT)[address] [place] [address] Potassium [Moles/Vol] 4.5 mmol/L Normal 3.5-5.0 [facility] Comment on above: Performed By: #### H FP, GGTB, MGO, CHM7 ####[facility] (DEFAULT)[address] [place] [address] Sodium [Moles/Vol] 133 mmol/L Low 135-145 [facility] Comment on above: Performed By: #### H FP, GGTB, MGO, CHM7 ####[facility] (DEFAULT)[address] [facility] [place] [address] Urea nitrogen [Mass/Vol] 19 mg/dL Normal 7-25 [facility] Comment on above: Performed By: #### H FP, GGTB, MGO, CHM7 ####[facility] (DEFAULT)[address] [place] [address] Urea nitrogen/Creatinine [Mass ratio] 12 mg/mg Normal [facility] Comment on above: Performed By: #### H FP, GGTB, MGO, CHM7 ####[facility] (DEFAULT)[address] [place] [address] Anion gap [Moles/Vol] 13 mmol/L 7 - 17 mmol/L [facility] Chloride [Moles/Vol] 105 mmol/L 98 - 10 8 mmol/L [facility] CO2 [Moles/Vol] 20 mmol/L Low 21 - 31 mmol/L [facility] Creatinine [Mass/Vol] 1.55 mg/dL High 0.70 - 1.30 mg/dL [facility] eGFR, CKD-EPI, Male 55 Low - PINF [facility] Glucose [Mass/Vol] 108 mg/dL High 70 - 99 mg/dL [facility] Osmolality Calc [Osmolality] 283 [facility] Potassium [Moles/Vol] 4.5 mmol/L 3.5 - 5.0 mmol/L [facility] Sodium [Moles/Vol] 133 mmol/L Low 135 - 145 mmol/L [facility] Urea nitrogen [Mass/Vol] 19 mg/dL 7 - 25 mg/dL [facility] Urea nitrogen/Creatinine [Mass ratio] 12 mg/mg [facility] GGTon 08-29-2023 Gamma glutamyl transferase [Catalytic activity/Vol] 64 U/L 8 - 64 U/L [facility] Interpretation and review of laboratory results Normal [facility] [place] Gamma glutamyl transferase [Catalytic activity/Vol] 64 U/L Normal 8-64 [facility] Comment on above: Performed By: #### H FP, GGTB, MGO, CHM7 ####[facility] (DEFAULT)[address] [place] [address] HEPATIC FUNCTION PANELon Albumin [Mass/Vol] 3.3 g/dL Low 3.5-5.0 [facility] Comment on above: Performed By: #### H FP, GGTB, MGO, CHM7 ####[facility] (DEFAULT)[address] [place] [address] ALP [Catalytic activity/Vol] 103 U/L Normal 32-126 [facility] Comment on above: Performed By: #### H FP, GGTB, MGO, CHM7 ####[facility] (DEFAULT)[address] [place] [address] ALT [Catalytic activity/Vol] 18 U/L Normal 10-52 [facility] Comment on above: Performed By: #### H FP, GGTB, MGO, CHM7 ####[facility] (DEFAULT)[address] [place] [address] AST [Catalytic activity/Vol] 27 U/L Normal 10-39 [facility] Comment on above: Performed By: #### H FP, GGTB, MGO, CHM7 ####[facility] (DEFAULT)[address] [place] [address] Bilirubin [Mass/Vol] 1.1 mg/dL Normal <1.5 [facility] Comment on above: Performed By: #### H FP, GGTB, MGO, CHM7 ####[facility] (DEFAULT)[address] [place] [address] Bilirubin.indirect [Mass/Vol] 0.3 mg/dL High <0.3 [facility] Comment on above: Performed By: #### H FP, GGTB, MGO, CHM7 ####[facility] (DEFAULT)[address] [place] [address] Protein [Mass/Vol] 6.8 g/dL Normal 6.4-8.3 [facility] Comment on above: Performed By: #### H FP, GGTB, MGO, CHM7 ####[facility] (DEFAULT)[address] [place] [address] Albumin [Mass/Vol] 3.3 g/dL Low 3.5 - 5.0 g/dL [facility] ALP [Catalytic activity/Vol] 103 U/L 32 - 126 U/L [facility] ALT [Catalytic activity/Vol] 18 U/L 10 - 52 U/L [facility] AST [Catalytic activity/Vol] 27 U/L 10 - 39 U/L [facility] Bilirubin [Mass/Vol] 1.1 mg/dL [facility] 1.5 mg/dL [facility] Bilirubin.direct [Mass/Vol] 0.3 mg/dL High NINF - 0.3 mg/dL [facility] Protein [Mass/Vol] 6.8 g/dL 6.4 - 8.3 g/dL [facility] HISTOPLASMA AND BLASTOMYCES ANTIGEN, ENZYME IMMUNOASSAY, SERMon 08-29-2023 Histoplasma/Blastomy antonia Ag Result Detected Invalid Interpretation Code Not Detected [facility] Comment on above: Result Comment: Anti gen from Histoplasma or Blastomyces (unable todifferentiate) detected. Result should be correlated withclinical presentation, exposure history, and otherdiagnostic procedures, including culture, serology,histopathology, and/or radiographic findings, to aid in thedifferentiation between histoplasmosis and blastomycosis.CRITICAL RESULT Performed By: #### H IBAG ####[facility] (DEFAULT)[address] [place] [address] Histoplasma/Blastomy antonia Ag Value 5.3 ng/mL Normal [facility] Comment on above: Result Comment: ---- ADDITIONAL INFORMATION This test was developed and its performance characteristicsdetermined by [facility] in a manner consistent with CLIArequirements. This test has not been cleared or approved bythe U.S. Food and Drug Administration.Test Performed by:[address] [id number] Director: Rosendo Bose M.D. Ph.D.; CLIA# [id number] Performed By: #### H IBAG ####[facility] (DEFAULT)[address] [place] [address] HISTOPLASMA ANTIGEN,URINEon 08-29-2023 HISTOPLASM AG, URINE Not detected Normal Not Detected [facility] Comment on above: Result Comment: No H istoplasma antigen detected.False negative results may occur. Repeat testing on anew specimen should be considered if clinically indicated. Performed By: #### Y HISTG ####[facility] (DEFAULT)[address] [place] [address] Histoplasma Ag Value Not detected Normal [facility] Comment on above: Result Comment: ---- ADDITIONAL INFORMATION This test has been modified from the microstrategy developer'sinstructions. Its performance characteristics weredetermined by [facility] in a manner consistent withCLIA requirements. This test has not been cleared orapproved by the U.S. Food and Drug Administration.Test Performed by:[address] [id number] Director: Rosendo Bose M.D. Ph.D.; CLIA# [id number] Performed By: #### Y HISTG ####[facility] (DEFAULT)[address] [place] [address] MAGNESIUMon 08-29-2023 Magnesium [Mass/Vol] 1.7 mg/dL Normal 1.6-2.6 [facility] Comment on above: Performed By: #### H FP, GGTB, MGO, CHM7 ####[facility] (DEFAULT)[address] [place] [address] Interpretation and review of laboratory results Normal [facility] Magnesium [Mass/Vol] 1.7 mg/dL 1.6 - 2 .6 mg/dL [facility] No Panel Informationon 08-29 Interpretation and review of laboratory results Abnormal [facility] [place] PT,INR,PTTon 08-29-2023 aPTT Coag (Bld) [Time] 29.3 s Normal 24.0-34.3 [facility] Comment on above: Performed By: #### P TPTT ####[facility] (DEFAULT)[address] [place] [address] INR Coag (PPP) [Relative time] 1.1 {INR} Normal 0.9-1.1 [facility] Comment on above: Performed By: #### P TPTT ####[facility] (DEFAULT)[address] [place] [address] PT Coag (PPP) [Time] 13.8 s Normal 11.9-14.2 [facility] Comment on above: Performed By: #### P TPTT ####[facility] (DEFAULT)[address] [place] [address] aPTT Coag (PPP) [Time] 29.[address] [facility] INR Coag (Bld) [Relative time] 1.1 {INR} 0.9 - 1.1 [facility] Interpretation and review of laboratory results Normal [facility] PT Coag (PPP) [Time] 13.8 s [facility] Portable XR Chest Viewson RADIOLOGY RADIOLOGY [facility] Portable XR Chest ViewsOrder ed By: Gerald Baer on 08-29-2023 [facility] Work Phone: TACROLIMUS LEVEL, TROUGH (ND E DRUG LEVEL)on 08-29-2023 Interpretation and review of laboratory results Normal [facility] Tacrolimus (Bld) [Mass/Vol] 8.9 ng/mL [facility] Tacrolimus, Trough 8.9 ng/mL Normal Bone Susana ow Transplant: 4.0-12.0, Therapeutic: 5.0-15.0 [facility] Comment on above: Order Comment: Pleas e draw at specified interval PRIOR to dose. Do not hold dose to wait for level. Specimens batched twice per day, (M-F) and once per day weekendsMethod performed is a chemiluminescent microparticle immunoasssay on the [employer] i2000.The range is based on experience at [facility] and users should be aware that target concentrations vary widely depending on concomitant therapy, time post-transplant, and desired degree of immunosuppression. Performed By: #### T ACRO ####[facility] (DEFAULT)[address] [place] [address] Tacrolimus, Trough 8.7 ng/mL Normal [facility] Transplant: 4.0-12.0, Therapeutic: 5.0-15.0 [facility] Comment on above: Order Comment: Pleas e draw at specified interval PRIOR to dose. Do not hold dose to wait for level. Specimens batched twice per day, (M-F) and once per day weekendsMethod performed is a chemiluminescent microparticle immunoasssay on the [employer] i2000.The range is based on experience at [facility] and users should be aware that target concentrations vary widely depending on concomitant therapy, time post-transplant, and desired degree of immunosuppression. Performed By: #### T ACRO ####[facility] (DEFAULT)[address] [place] [address] TACROLIMUS LEVEL, TROUGH (ND E DRUG LEVEL)Ordered By: Roxanne Louie on 08-29-2023 Interpretation and review of laboratory results Normal [facility] Tacrolimus (Bld) [Mass/Vol] 8.7 ng/mL [facility] URINALYSIS REFLEX TO CULTURE PERFORMABLEon 08-29-2023 Appearance (U) Clear Normal Clear [facility] Comment on above: Order Comment: For i ndwelling catheters, specimen collection is acceptable on catheter day 1 and 2 only. ? Performed By: #### U [id number] ####[facility] (DEFAULT)[address] [place] [address] Bacteria ABSENT Normal ABSENT [facility] Comment on above: Order Comment: For i ndwelling catheters, specimen collection is acceptable on catheter day 1 and 2 only. ? Performed By: #### U [id number] ####[facility] (DEFAULT)[address] [place] [address] Blood Urine Trace Abnormal Negative [facility] Comment on above: Order Comment: For i ndwelling catheters, specimen collection is acceptable on catheter day 1 and 2 only. ? Performed By: #### U [id number] ####[facility] (DEFAULT)[address] [facility] [address] Calcium Oxalate Crystals PRESENT Normal [facility] Comment on above: Order Comment: For i ndwelling catheters, specimen collection is acceptable on catheter day 1 and 2 only. ? Performed By: #### U [id number] ####[facility] (DEFAULT)[address] [place] [address] Color (U) Yellow Normal Yellow [facility] Comment on above: Order Comment: For i ndwelling catheters, specimen collection is acceptable on catheter day 1 and 2 only. ? Performed By: #### U [id number] ####[facility] (DEFAULT)[address] [place] [address] Glucose Ql (U) Negative Normal Negative [facility] Comment on above: Order Comment: For i ndwelling catheters, specimen collection is acceptable on catheter day 1 and 2 only. ? Performed By: #### U [id number] ####[facility] (DEFAULT)[address] [place] [address] Ketones Ql (U) Negative Normal Negative [facility] Comment on above: Order Comment: For i ndwelling catheters, specimen collection is acceptable on catheter day 1 and 2 only. ? Performed By: #### U [id number] ####[facility] (DEFAULT)[address] [place] [address] Leukocyte esterase Test strip Ql (U) Negative Normal Negative [facility] Comment on above: Order Comment: For i ndwelling catheters, specimen collection is acceptable on catheter day 1 and 2 only. ? Performed By: #### U [id number] ####[facility] (DEFAULT)[address] [place] [address] Nitrites Urine Negative Normal Negative [facility] Comment on above: Order Comment: For i ndwelling catheters, specimen collection is acceptable on catheter day 1 and 2 only. ? Performed By: #### U [id number] ####[facility] (DEFAULT)[address] [place] [address] pH (U) 6.0 [pH] Normal 5.0-7.0 [facility] Comment on above: Order Comment: For i ndwelling catheters, specimen collection is acceptable on catheter day 1 and 2 only. ? Performed By: #### U [id number] ####[facility] (DEFAULT)[address] [place] [address] Protein Urine Negative Normal Negative [facility] Comment on above: Order Comment: For i ndwelling catheters, specimen collection is acceptable on catheter day 1 and 2 only. ? Performed By: #### U [id number] ####[facility] (DEFAULT)[address] [place] [address] RBC Urine 3-5 Abnormal 0-2 [facility] Comment on above: Order Comment: For i ndwelling catheters, specimen collection is acceptable on catheter day 1 and 2 only. ? Performed By: #### U [id number] ####[facility] (DEFAULT)[address] [place] [address] Specific [place] Urine 1.015 Normal 1.001-1.035 [facility] Comment on above: Order Comment: For i ndwelling catheters, specimen collection is acceptable on catheter day 1 and 2 only. ? Performed By: #### U [id number] ####[facility] (DEFAULT)[address] [place] [address] Squamous/Epithelial Cells 0-2/hpf Normal 0-2/hpf, 3-5/hpf = 1+ [facility] Comment on above: Order Comment: For i ndwelling catheters, specimen collection is acceptable on catheter day 1 and 2 only. ? Performed By: #### U [id number] ####[facility] (DEFAULT)[address] [place] [address] Urobilinogen Urine 1.0 E.U./dL Normal 0.2 E.U/d L, 1.0 E.U/dL [facility] Comment on above: Order Comment: For i ndwelling catheters, specimen collection is acceptable on catheter day 1 and 2 only. ? Performed By: #### U [id number] ####[facility] (DEFAULT)[address] [place] [address] WBC Urine 0 - 5 Normal 0 - 5 [facility] Comment on above: Order Comment: For i ndwelling catheters, specimen collection is acceptable on catheter day 1 and 2 only. ? Performed By: #### U [id number] ####[facility] (DEFAULT)[address] [place] [address] URINALYSIS REFLEX TO CULTURE PERFORMABLEOrdered By: Shaji Kelly on 08-29-2023 Appearance (U) Clear Clear [facility] Bacteria LM Ql (Urine sed) ABSENT ABSENT [facility] Calcium Oxalate Crystals PRESENT [facility] Color (U) Yellow Yellow [facility] Epithelial cells.squamous LM Ql (Urine sed) 0-2/hpf 0-2/hpf, 3-5/hpf = 1+ [facility] Glucose Test strip (U) [Mass/Vol] Negative Negative [facility] Interpretation and review of laboratory results [facility] Ketones (U) [Mass/Vol] Negative Negative [facility] Leukocyte esterase Test strip Ql (U) Negative Negative [facility] Nitrite Ql (U) Negative Negative [facility] pH (U) 6.0 [pH] 5.0 - 7.0 [facility] Protein (U) [Mass/Vol] Negative Negative [facility] RBC (U) [#/Vol] Trace Abnormal Negative [facility] RBC LM.HPF (Urine sed) [#/Area] 3-[address] [facility] Specific gravity (U) [Rel density] 1.015 1.001 - 1.035 [facility] Urobilinogen (U) [Mass/Vol] 1.0 E.U./dL 0.2 E.U/dL, 1.0 E.U/dL [facility] WBC LM.HPF (Urine sed) [#/Area] 0 - 5 [facility] URINE CULTUREon 08-29-2023 Bacteria identified Cx Nom (U) No Growth Normal [facility] Comment on above: Order Comment: For i ndwelling catheters, specimen collection is acceptable on catheter day 1 and 2 only. Sung top vacutainer. Urine must be to the fill line to process (4mls). If minimum volume, send urine in a yellow top vacutainer tube. Performed By: #### U R ####[facility] (DEFAULT)[address] [place] [address] US RENAL TRANSPLANT SCANon 0 08-29-2023 US RENAL TRANSPLANT SCAN Normal [facility] US for transplanted kidney l imitedon 08-29-[address] [facility] Radiology Study observation (narrative) [facility] US for transplanted kidney l imitedOrdered By: Romana Myers on 08-29-2023 [facility] Work Phone: XR CHEST PORTABLEon 08-29-20 23 XR CHEST PORTABLE Normal [facility] BLOOD CULTUREon 08-28-2023 Bacteria identified Cx Nom (Unsp spec) NO GROWTH DAY 5 OF 5 Normal [facility] Comment on above: Order Comment: 2 [...] anaerobic Performed By: #### B LDCULT ####[facility] (DEFAULT)[address] [place] [address] Bacteria identified Cx Nom (Unsp spec) NO GROWTH DAY 5 OF 5 Normal [facility] Comment on above: Order Comment: 2 [...] anaerobic Performed By: #### B LDCULT ####[facility] (DEFAULT)[address] [place] [address] DARYL AURIS SCREEN BY PCRo n 08-28-2023 Daryl auris Screen by PCR Not detected Normal Not Detected [facility] Comment on above: Order Comment: This test was performed using a real-time PCR assay. This test was developed, and its performance characteristics determined by [facility]. It has not been cleared or approved by the FDA. The laboratory is regulated under CLIA as qualified to perform high-complexity testing. This test is used for clinical purposes. It should not be regarded as investigational or for research. Performed By: #### C ANDIDA AURIS SCREEN BY PCR ####[facility] (DEFAULT)[address] [place] [address] CBC AND ELECTRONIC DIFFon Abs Baso Auto < Normal 0.00-0.09 [facility] Comment on above: Performed By: #### L [id number] ####[facility] (DEFAULT)[address] [place] [address] Basophils/100 WBC (Bld) 0.6 % Normal [facility] Comment on above: Performed By: #### L [id number] ####[facility] (DEFAULT)[address] [place] [address] DIFF STATUS Electronic Differential Normal [facility] Comment on above: Performed By: #### L [id number] ####[facility] (DEFAULT)[address] [place] [address] Eosinophils (Bld) [#/Vol] 0.10 10*3/uL Normal 0.00-0.48 [facility] Comment on above: Performed By: #### L [id number] ####[facility] (DEFAULT)[address] [place] [address] Eosinophils/100 WBC (Bld) 2.1 % Normal [facility] Comment on above: Performed By: #### L [id number] ####[facility] (DEFAULT)[address] [place] [address], [place] [address] Hematocrit (Bld) [Volume fraction] 37.9 % Low 39.6-48.8 [facility] Comment on above: Performed By: #### L [id number] ####[facility] (DEFAULT)[address] [place] [address], [place] [address] Hemoglobin (Bld) [Mass/Vol] 12.4 g/dL Low 13.4-16.8 [facility] Comment on above: Performed By: #### L [id number] ####[facility] (DEFAULT)[address] [place] [address], [place] [address] Immature Grans % 0.6 % Normal [facility] Comment on above: Performed By: #### L [id number] ####[facility] (DEFAULT)[address] [place] [address], [place] [address] Immature Grans Absolute < Normal <=0.07 [facility] Comment on above: Performed By: #### L [id number] ####[facility] (DEFAULT)[address] [place] [address], [place] [address] Lymphocytes (Bld) [#/Vol] 1.76 10*3/uL Normal 0.83-3.57 [facility] Comment on above: Performed By: #### L [id number] ####[facility] (DEFAULT)[address] [place] [address] Lymphocytes/100 WBC (Bld) 37.1 % Normal [facility] Comment on above: Performed By: #### L [id number] ####[facility] (DEFAULT)[address] [place] [address] MCV (RBC) [Entitic vol] 85.0 fL Normal 79.0-94.5 [facility] Comment on above: Performed By: #### L [id number] ####[facility] (DEFAULT)[address] [facility] [place] [address] Mean Cell Hgb 27.8 pg Normal 26.1-33.3 [facility] Comment on above: Performed By: #### L [id number] ####[facility] (DEFAULT)[address] [facility] [place] [address] Mean Cell Hgb Conc 32.7 g/dL Normal 31.9-36.5 [facility] Comment on above: Performed By: #### L [id number] ####[facility] (DEFAULT)[address] [facility] [place] [address] Monocytes (Bld) [#/Vol] 0.66 10*3/uL Normal 0.24-0.93 [facility] Comment on above: Performed By: #### L [id number] ####[facility] (DEFAULT)[address] [facility] [place] [address] Monocytes/100 WBC (Bld) 13.9 % Normal [facility] Comment on above: Performed By: #### L [id number] ####[facility] (DEFAULT)[address] [facility] [place] [address] Nucleated RBC 0.0 /100 WBC Normal <=0.2 [facility] Comment on above: Performed By: #### L [id number] ####[facility] (DEFAULT)[address] [place] [address] Platelet mean volume (Bld) [Entitic vol] 9.3 fL Normal 8.7-12.3 [facility] Comment on above: Performed By: #### L [id number] ####[facility] (DEFAULT)[address] [place] [address] Platelets (Bld) [#/Vol] 262 10*3/uL Normal 146-337 [facility] Comment on above: Performed By: #### L [id number] ####[facility] (DEFAULT)[address] [place] [address] RBC (Bld) [#/Vol] 4.46 10*6/uL Normal 4.38-5.83 [facility] Comment on above: Performed By: #### L [id number] ####[facility] (DEFAULT)[address] [place] [address] RBC Distribution 13.4 % Normal 10.9-14.3 [facility] Comment on above: Performed By: #### L [id number] ####[facility] (DEFAULT)[address] [place] [address] Segs + Bands Auto 45.7 % Normal [facility] Comment on above: Performed By: #### L [id number] ####[facility] (DEFAULT)[address] [place] [address] Segs + Bands,Absolute Auto 2.16 K/uL Normal 1.57-6.19 [facility] Comment on above: Performed By: #### L [id number] ####[facility] (DEFAULT)[address] [place] [address] WBC (Bld) [#/Vol] 4.74 10*3/uL Normal 3.73-10.10 [facility] Comment on above: Performed By: #### L [id number] ####[facility] (DEFAULT)[address] [place] [address] Basophils (Bld) [#/Vol] K/uL 0.00 - 0.09 K/uL [facility] Basophils/100 WBC (Bld) 0.6 % [facility] Differential cell count method Nom (Bld) Electronic Differential [facility] Eosinophils (Bld) [#/Vol] 0.10 10*3/uL 0.00 - 0.48 K/uL [facility] Eosinophils/100 WBC (Bld) 2.1 % [facility] Erythrocyte distribution width (RBC) [Ratio] 13.4 % 10.9 - 14.3 % [facility] Hematocrit (Bld) [Volume fraction] 37.9 % Low 39.6 - 48.8 % [facility] Hemoglobin (Bld) [Mass/Vol] 12.4 g/dL Low 13.4 - 16.8 g/dL [facility] Immature granulocytes (Bld) [#/Vol] K/uL NINF - 0.07 K/uL [facility] Immature granulocytes/100 WBC (Bld) 0.6 % [facility] Interpretation and review of laboratory results Abnormal [facility] Lymphocytes (Bld) [#/Vol] 1.76 10*3/uL 0.83 - 3.57 K/uL [facility] Lymphocytes/100 WBC (Bld) 37.1 % [facility] MCH (RBC) [Entitic mass] 27.8 pg 26.1 - 33.[address] [facility] MCHC (RBC) [Mass/Vol] 32.7 g/dL 31.9 - 36.5 g/dL [facility] MCV (RBC) [Entitic vol] 85.0 fL 79.0 - 94.[address] [facility] Monocytes (Bld) [#/Vol] 0.66 10*3/uL 0.24 - 0.93 K/uL [facility] Monocytes/100 WBC (Bld) 13.9 % [facility] Neutrophils (Bld) [#/Vol] 2.16 10*3/uL 1.57 - 6.19 K/uL [facility] Nucleated RBC/100 WBC (Bld) [Ratio] 0.0 % [facility] Platelet mean volume (Bld) [Entitic vol] 9.3 fL 8.7 - 12.[address] [facility] Platelets (Bld) [#/Vol] 262 10*3/uL 146 - 337 K/uL [facility] RBC (Bld) [#/Vol] 4.46 10*6/uL [facility] Segmented neutrophils/100 WBC (Bld) 45.7 % [facility] WBC (Bld) [#/Vol] 4.74 10*3/uL 3.73 - 10. 10 K/uL [facility] CHEM 6 (LYTES, BUN CREA)on 0 08-28-2023 Anion gap [Moles/Vol] 13 mmol/L Normal 7-17 [facility] Comment on above: Performed By: #### C HM6 ####[facility] (DEFAULT)[address] [place] [address] Chloride [Moles/Vol] 103 mmol/L Normal 98-108 [facility] Comment on above: Performed By: #### C HM6 ####[facility] (DEFAULT)[address] [place] [address] CO2 [Moles/Vol] 22 mmol/L Normal 21-31 [facility] Comment on above: Performed By: #### C HM6 ####[facility] (DEFAULT)[address] [place] [address] Creatinine [Mass/Vol] 1.62 mg/dL High 0.70-1.30 [facility] Comment on above: Performed By: #### C HM6 ####[facility] (DEFAULT)[address] [place] [address] GFR/1.73 sq M.predicted among non-blacks MDRD (S/P/Bld) [Vol rate/Area] 51 mL/min/{1.73_m2} Low >=60 [facility] Comment on above: Result Comment: Repo rted eGFR is based on the CKD-EPI 2020 equation using creatinine, age, and sex. Performed By: #### C HM6 ####[facility] (DEFAULT)[address] [facility] [place] [address] Potassium [Moles/Vol] 4.3 mmol/L Normal 3.5-5.0 [facility] Comment on above: Performed By: #### C HM6 ####[facility] (DEFAULT)[address] [place] [address] Sodium [Moles/Vol] 134 mmol/L Low 135-145 [facility] Comment on above: Performed By: #### C HM6 ####[facility] (DEFAULT)[address] [place] [address] Urea nitrogen [Mass/Vol] 22 mg/dL Normal 7-25 [facility] Comment on above: Performed By: #### C HM6 ####[facility] (DEFAULT)[address] [place] [address] Urea nitrogen/Creatinine [Mass ratio] 14 mg/mg Normal [facility] Comment on above: Performed By: #### C HM6 ####[facility] (DEFAULT)[address] [place] [address] Anion gap [Moles/Vol] 13 mmol/L 7 - 17 mmol/L [facility] Chloride [Moles/Vol] 103 mmol/L 98 - 10 8 mmol/L [facility] CO2 [Moles/Vol] 22 mmol/L 21 - 31 mmol/L [facility] Creatinine [Mass/Vol] 1.62 mg/dL High 0.70 - 1.30 mg/dL [facility] eGFR, CKD-EPI, Male 51 Low - PINF [facility] Interpretation and review of laboratory results Abnormal [facility] Potassium [Moles/Vol] 4.3 mmol/L 3.5 - 5.0 mmol/L [facility] Sodium [Moles/Vol] 134 mmol/L Low 135 - 145 mmol/L [facility] Urea nitrogen [Mass/Vol] 22 mg/dL 7 - 25 mg/dL [facility] Urea nitrogen/Creatinine [Mass ratio] 14 mg/mg [facility] IMMUNOCOMPROMISED RESPIRATOR Y PANELon 08-28-2023 Adenovirus - Pcr Not detected Normal Not Detected [facility] Comment on above: Order Comment: Viral [...] acid assay. Performed By: #### I CRESP ####[facility] (DEFAULT)[address] [place] [address] Bordetella Parapertussis Not detected Normal Not Detected [facility] Comment on above: Order Comment: Viral [...] acid assay. Performed By: #### I CRESP ####[facility] (DEFAULT)[address] [place] [address], [place] [address] Bordetella Pertussis Not detected Normal Not Detected [facility] Comment on above: Order Comment: Viral [...] acid assay. Performed By: #### I CRESP ####[facility] (DEFAULT)[address] [place] [address], [place] [address] Chlamydia Pneumoniae Not detected Normal Not Detected [facility] Comment on above: Order Comment: Viral [...] acid assay. Performed By: #### I CRESP ####[facility] (DEFAULT)[address] [place] [address] Coronavirus 229E Not detected Normal Not Detected [facility] Comment on above: Order Comment: Viral [...] acid assay. Performed By: #### I CRESP ####[facility] (DEFAULT)[address] [place] [address], [place] [address] Coronavirus Hku1 Not detected Normal Not Detected [facility] Comment on above: Order Comment: Viral [...] acid assay. Performed By: #### I CRESP ####[facility] (DEFAULT)[address] [place] [address], [place] [address] Coronavirus Nl63 Not detected Normal Not Detected [facility] Comment on above: Order Comment: Viral [...] acid assay. Performed By: #### I CRESP ####[facility] (DEFAULT)[address] [place] [address], [place] [address] Coronavirus Oc43 Not detected Normal Not Detected [facility] Comment on above: Order Comment: Viral [...] acid assay. Performed By: #### I CRESP ####[facility] (DEFAULT)[address] [place] [address], [place] [address] Influenza A - Pcr Not detected Normal Not Detected [facility] Comment on above: Order Comment: Viral [...] acid assay. Performed By: #### I CRESP ####[facility] (DEFAULT)[address] [place] [address], [place] [address] Influenza B - Pcr Not detected Normal Not Detected [facility] Comment on above: Order Comment: Viral [...] acid assay. Performed By: #### I CRESP ####[facility] (DEFAULT)[address] [place] [address], [place] [address] Metapneumovirus - Pcr Not detected Normal Not Detected [facility] Comment on above: Order Comment: Viral [...] acid assay. Performed By: #### I CRESP ####[facility] (DEFAULT)[address] [place] [address], [place] [address] Mycoplasma Pneumoniae Not detected Normal Not Detected [facility] Comment on above: Order Comment: Viral [...] acid assay. Performed By: #### I CRESP ####[facility] (DEFAULT)[address] [place] [address], [place] [address] Parainfluenza 1 - Pcr Not detected Normal Not Detected [facility] Comment on above: Order Comment: Viral [...] acid assay. Performed By: #### I CRESP ####[facility] (DEFAULT)[address] [place] [address] Parainfluenza 2 - Pcr Not detected Normal Not Detected [facility] Comment on above: Order Comment: Viral [...] acid assay. Performed By: #### I CRESP ####[facility] (DEFAULT)[address] [place] [address] Parainfluenza 3 - Pcr Not detected Normal Not Detected [facility] Comment on above: Order Comment: Viral [...] assay. Performed By: #### I CRESP ####[facility] (DEFAULT)[address] [place] [address], [place] [address] Parainfluenza 4 - Pcr Not detected Normal Not Detected [facility] Comment on above: Order Comment: Viral [...] assay. Performed By: #### I CRESP ####[facility] (DEFAULT)[address] [address] Rhinovirus/Enterovir us - PCR Not detected Normal Not Detected [facility] Comment on above: Order Comment: Viral [...] assay. Performed By: #### I CRESP ####[facility] (DEFAULT)[address] [place] [address] Rsv - Pcr Not detected Normal Not Detected [facility] Comment on above: Order Comment: Viral [...] acid assay. Performed By: #### I CRESP ####[facility] (DEFAULT)[address] [place] [address] SARS-CoV-2 (COVID-19) RNA ESTELITA+probe Ql (Unsp spec) Not detected Normal NOT DETECTED [facility] Comment on above: Order Comment: Viral [...] acid assay. Performed By: #### I CRESP ####[facility] (DEFAULT)[address] [place] [address] Portable XR Chest Viewson Radiology Study observation (narrative) [facility] Respiratory virus DNA+RNA NA A+probe Nom (Unsp spec)Ordered By: Dayami Harris on 08-28-2023 Adenovirus DNA ESTELITA+probe Nom (Unsp spec) Not detected Not Detected [facility] B. parapertussis DNA ESTELITA+probe Ql (Unsp spec) Not detected Not Detected [facility] B. pertussis DNA ESTELITA+probe Ql (Unsp spec) Not detected Not Detected [facility] C. pneumoniae DNA ESTELITA+probe Ql (Unsp spec) Not detected Not Detected [facility] FLUAV RNA ESTELITA+probe Ql (Unsp spec) Not detected Not Detected [facility] FLUBV RNA ESTELITA+probe Ql (Unsp spec) Not detected Not Detected [facility] HCoV 229E RNA ESTELITA+non-probe Ql (Nph) Not detected Not Detected [facility] HCoV HKU1 RNA ESTELITA+non-probe Ql (Nph) Not detected Not Detected [facility] HCoV NL63 RNA ESTELITA+non-probe Ql (Nph) Not detected Not Detected [facility] HCoV OC43 RNA ESTELITA+non-probe Ql (Nph) Not detected Not [facility] hMPV A RNA ESTELITA+probe Ql (Unsp spec) Not detected Not Detected [facility] Interpretation and review of laboratory results Normal [facility] M. pneumoniae DNA ESTELITA+probe Ql (Unsp spec) Not detected Not Detected [facility] Parainfluenza virus 1 RNA ESTELITA+probe Ql (Unsp spec) Not detected Not Detected [facility] Parainfluenza virus 2 RNA ESTELITA+probe Ql (Unsp spec) Not detected Not Detected [facility] Parainfluenza virus 3 RNA ESTELITA+probe Ql (Unsp spec) Not detected Not Detected [facility] Parainfluenza virus 4 RNA ESTELITA+probe Ql (Unsp spec) Not detected Not Detected [facility] Rhinovirus+Enterovir us RNA ESTELITA+probe Ql (Unsp spec) Not detected Not Detected [facility] RSV RNA ESTELITA+probe Ql (Unsp spec) Not detected Not Detected [facility] SARS-CoV-2 (COVID-19) RNA ESTELITA+probe Ql (Unsp spec) Not detected NOT DETECTED [facility] ALBUMINon 04-28-2023 Albumin [Mass/Vol] 4.0 g/dL Normal 3.4-5.0 [facility] Comment on above: Performed By: #### C MP #### [facility] [address] [address] [address] Dwight Waters ALKALINE PHOSPHAon ALP [Catalytic activity/Vol] 106 U/L Normal 46-116 [facility] Comment on above: Performed By: #### F [id number] #### [facility] [address] [address] [address] Dwight Waters BILIRUBIN CONJUGATED (DIRECT )on 04-28-2023 BILI, CONJUGATED 0.3 mg/dL Critically high 0.0-0.2 [facility] Comment on above: Performed By: #### C MP #### [facility] [address] [place] [address] Dr. Dwight Waters BILIRUBIN TOTALon 04-28-2023 Bilirubin [Mass/Vol] 1.4 mg/dL Critically high 0.2-1.0 [facility] Comment on above: Performed By: #### C MP #### [facility] [address] [place] [address] Dr. Dwight Waters BUNon 04-28-2023 Urea nitrogen [Mass/Vol] 12.0 mg/dL Normal 7.0-18.0 [facility] Comment on above: Performed By: #### U RTPCR #### [facility] [address] [place] [address] Dr. Dwight Waters CALCIUMon 04-28-2023 Calcium [Mass/Vol] 9.3 mg/dL Normal 8.5-10.1 [facility] Comment on above: Performed By: #### U RTPCR #### [facility] [address] [place] [address] Dr. Dwight Waters CBC AUTO DIFFon 04-28-2023 BASO # 0.1 103/ul Normal 0.0-0.1 [facility] Comment on above: Performed By: #### C BC #### [facility] [address] [place] [address] Dr. Dwight Waters Basophils/100 WBC (Bld) 0.9 % Normal 0.2-2.0 [facility] Comment on above: Performed By: #### C BC #### [facility] [address] [place] [address] Dr. Dwight Waters EO # 0.2 103/ul Normal 0.0-0.7 [facility] Comment on above: Performed By: #### C BC #### [facility] Laboratory [address] [place] [address] Dr. Dwight Waters Eosinophils/100 WBC (Bld) 3.8 % Normal 0.9-7.0 [facility] Comment on above: Performed By: #### C BC #### [facility] [address] [place] [address] Dr. Dwight Waters Erythrocyte distribution width (RBC) [Ratio] 12.5 % Normal 11.0-15.0 [facility] Comment on above: Performed By: #### C BC #### [facility] [address] [place] [address] Dr. Dwight Waters Hematocrit (Bld) [Volume fraction] 49.8 % Normal 42.0-54.0 [facility] Comment on above: Performed By: #### C BC #### [facility] [address] [place] [address] Dr. Dwight Waters Hemoglobin (Bld) [Mass/Vol] 16.4 g/dL Normal 14.0-18.0 [facility] Comment on above: Performed By: #### C BC #### [facility] [address] [place] [address] Dr. Dwight Waters IG # 0.01 10e3/ul Normal 0.00-0.03 [facility] Comment on above: Performed By: #### C BC #### [facility] [address] [place] [address] Dr. Dwight Waters IG % 0.2 % Normal 0.0-0.5 [facility] Comment on above: Performed By: #### C BC #### [facility] [address] [place] [address] Dr. Dwight Waters LYMPH # 2.1 103/ul Normal 1.2-3.8 [facility] Comment on above: Performed By: #### C BC #### [facility] [address] [place] [address] Dr. Dwight Waters Lymphocytes/100 WBC (Bld) 39.1 % Normal 20.5-60.0 [facility] Comment on above: Performed By: #### C BC #### [facility] [address] [place] [address] Dr. Dwight Waters MANUAL DIFF REQ NO Normal [facility] Comment on above: Performed By: #### C BC #### [facility] [address] [place] [address] Dr. Dwight Waters MCH (RBC) [Entitic mass] 28.6 pg Normal 25.9-34.0 [facility] Comment on above: Performed By: #### C BC #### [facility] [address] [place] [address] Dr. Dwight Waters MCHC (RBC) [Mass/Vol] 32.9 g/dL Normal 29.9-35.2 [facility] Comment on above: Performed By: #### C BC #### [facility] [address] [place] [address] Dr. Dwight Waters MCV (RBC) [Entitic vol] 86.9 fL Normal 80.0-94.0 [facility] Comment on above: Performed By: #### C BC #### [facility] [address] [place] [address] Dr. Dwight Waters MONO # 0.6 103/ul Normal 0.3-0.8 [facility] Comment on above: Performed By: #### C BC #### [facility] [address] [place] [address] Dr. Dwight Waters Monocytes/100 WBC (Bld) 10.6 % Normal 1.7-12.0 [facility] Comment on above: Performed By: #### C BC #### [facility] [address] [place] [address] Dr. Dwight Waters NEUT # 2.5 103/ul Normal 1.4-6.5 [facility] Comment on above: Performed By: #### C BC #### [facility] [address] [place] [address] Dr. Dwight Waters Neutrophils/100 WBC (Bld) 45.4 % Normal 43.0-75.0 [facility] Comment on above: Performed By: #### C BC #### [facility] [address] [place] [address] Dr. Dwight Waters Platelet mean volume (Bld) [Entitic vol] 9.3 fL Critically low 9.5-13.5 [facility] Comment on above: Performed By: #### C BC #### [facility] [address] [place] [address] Dr. Dwight Waters PLT 248 103/ul Normal 150-450 [facility] Comment on above: Performed By: #### C BC #### [facility] [address] [place] [address] Dr. Dwight Waters RBC 5.73 106/ul Normal 4.70-6.10 [facility] Comment on above: Performed By: #### C BC #### [facility] [address] [place] [address] Dr. Dwight Waters WBC 5.5 103/ul Normal 4.0-11.0 [facility] Comment on above: Performed By: #### C BC #### [facility] [address] [place] [address] Dr. Dwight Waters CHLORIDEon 04-28-2023 Chloride [Moles/Vol] 107 mmol/L Normal 98-107 [facility] Comment on above: Performed By: #### U RTPCR #### [facility] [address] [place] [address] Dr. Dwight Waters CO2on 04-28-2023 CO2 [Moles/Vol] 28.9 mmol/L Normal 21.0-32.0 [facility] Comment on above: Performed By: #### U RTPCR #### [facility] [address] [place] [address] Dr. Dwight Waters CREATININEon 04-28-2023 Creatinine [Mass/Vol] 1.17 mg/dL Normal 0.70-1.30 [facility] Comment on above: Performed By: #### U RTPCR #### [facility] [address] [place] [address] Dr. Dwight Waters EGFR-AF SALVADOREAN >60 Normal >=60 [facility] Comment on above: Performed By: #### U RTPCR #### [facility] [address] [place] [address] Dr. Dwight Waters EGFR-NON AF SALVADOREAN >60 Normal >=60 [facility] Comment on above: Performed By: #### U RTPCR #### [facility] [address] [place], [place] [id number] Dr. Dwight Waters GGTon 04-28-2023 Gamma glutamyl transferase [Catalytic activity/Vol] 27 U/L Normal 15-85 [facility] Comment on above: Performed By: #### U RTPCR #### [facility] [address] [place] [address] Dr. Dwight Waters GLUCOSE BLOODon 04-28-2023 Glucose [Mass/Vol] 110 mg/dL Critically high 74-106 T [facility] Comment on above: Performed By: #### U RTPCR #### [facility] [address] [place] [address] Dr. Dwight Waters MAGNESIUMon 04-28-2023 Magnesium [Mass/Vol] 1.7 mg/dL Critically low 1.8-2.4 [facility] Comment on above: Performed By: #### U RTPCR #### [facility] [address] [place] [address] Dr. Dwight Waters NAon 04-28-2023 Sodium [Moles/Vol] 144 mmol/L Normal 136-145 [facility] Comment on above: Performed By: #### U RTPCR #### [facility] [address] [place] [address] Dr. Dwight Waters PHOSPHORUSon 04-28-2023 Phosphate [Mass/Vol] 3.2 mg/dL Normal 2.6-4.7 [facility] Comment on above: Performed By: #### U RTPCR #### [facility] [address] [place] [address] Dr. Dwight Waters POTASSIUMon 04-28-2023 Potassium [Moles/Vol] 4.0 mmol/L Normal 3.5-5.1 [facility] Comment on above: Performed By: #### U RTPCR #### [facility] [address] [place] [address] Dr. Dwight Waters SGOTon 04-28-2023 AST [Catalytic activity/Vol] 25 U/L Normal 15-37 [facility] Comment on above: Performed By: #### C MP #### [facility] [address] [place] [address] Dr. Dwight Waters SGPTon 04-28-2023 ALT [Catalytic activity/Vol] 40 U/L Normal 16-63 [facility] Comment on above: Performed By: #### C MP #### [facility] [address] [place] [address] Dr. Dwight Waters URINE T PROTEIN CREAT RATIOo n 04-28-2023 Protein (U) [Mass/Vol] 10.1 mg/dL Normal <=12.0 [facility] Comment on above: Performed By: #### U RTPCR #### [facility] [address] [place] [address] Dr. Dwight Waters UR PROT CREAT RAT 0.14 Normal [facility] Comment on above: Performed By: #### U RTPCR #### [facility] [address] [place] [address] Dr. Dwight Waters URINE CREAT 74.40 mg/dL Normal 20.00-300.00 [facility] Comment on above: Performed By: #### U RTPCR #### [facility] [address] [place] [address] Dr. Dwight Waters Office Visiton 04-13-2023 Follow-up visit [id number] George Styles 1970 M Date Provider Department [place] 04/13/2023 MIGUEL PARADA [facility] Family History Problem Relation Age of Onset Coronary artery disease Mother Coronary artery disease Father Family Status - Relation Status Age at Mother Father Level of Service:13295 ND OFFICE/OUTPATIENT ESTABLISHED LOW MDM 20-29 MIN Reason for Visit and Comments: Hypertension [355779] Hyperlipidemia [182] Normal [facility] BK VIRUS PCR QUANTon 023 BKV DNA QUANT PCR PLASMA Negative Normal Negative [facility] Comment on above: Result Comment: No B K DNA detected. . The linear range of the assay is 22 - 100,000,000 IU/mL. Performed By: #### B KVIRUS #### [facility] [address] [place] [address] Dr. Dwight Waters Log10 BKV DNA Plasma Normal [facility] Comment on above: Performed By: #### B KVIRUS #### [facility] [address] [place] [address] Dr. Dwight Waters FK506 (TACROLIMUS) WHOLE BLO ODon 03-04-2023 Tacrolimus (FK506), Blood 5.9 ng/mL Normal 2.0-20.0 [facility] Comment on above: Result Comment: Trou gh (immediately following transplant) 15.0 . Trough (steady state, 2 weeks or more after transplant): 3.0 - 8.0 . Performed by LC-MS/MS technology. Performed By: #### C MP #### [facility] [address] [place] [address] Dr. Dwight Waters ALBUMINon 03-02-2023 Albumin [Mass/Vol] 3.9 g/dL Normal 3.4-5.0 [facility] Comment on above: Performed By: #### U RTPCR #### [facility] [address] [place] [address] Dr. Dwight Waters ALKALINE PHOSPHAon ALP [Catalytic activity/Vol] 105 U/L Normal 46-116 [facility] Comment on above: Performed By: #### U RTPCR #### [facility] [address] [place] [address] Dr. Dwight Waters BILIRUBIN CONJUGATED (DIRECT )on 03-02-2023 BILI, CONJUGATED 0.2 mg/dL Normal 0.0-0.2 [facility] Comment on above: Performed By: #### U RTPCR #### [facility] [address] [place] [address] Dr. Dwight Waters BILIRUBIN TOTALon 03-02-2023 Bilirubin [Mass/Vol] 0.9 mg/dL Normal 0.2-1.0 [facility] Comment on above: Performed By: #### U RTPCR #### [facility] [address] [place] [address] Dr. Dwight Waters CBC AUTO DIFFon 03-02-2023 BASO # 0.1 103/ul Normal 0.0-0.1 [facility] Comment on above: Performed By: #### C BC #### [facility] [address] [place] [address] Dr. Dwight Waters Basophils/100 WBC (Bld) 0.9 % Normal 0.2-2.0 [facility] Comment on above: Performed By: #### C BC #### [facility] [address] [place] [address] Dr. Dwight Waters EO # 0.2 103/ul Normal 0.0-0.7 [facility] Comment on above: Performed By: #### C BC #### [facility] [address] [place] [address] Dr. Dwight Waters Eosinophils/100 WBC (Bld) 3.5 % Normal 0.9-7.0 [facility] Comment on above: Performed By: #### C BC #### [facility] [address] [place] [address] Dr. Dwight Waters Erythrocyte distribution width (RBC) [Ratio] 12.7 % Normal 11.0-15.0 [facility] Comment on above: Performed By: #### C BC #### [facility] [address] [place] [address] Dr. Dwight Waters Hematocrit (Bld) [Volume fraction] 48.2 % Normal 42.0-54.0 [facility] Comment on above: Performed By: #### C BC #### [facility] [address] [place] [address] Dr. Dwight Waters Hemoglobin (Bld) [Mass/Vol] 15.9 g/dL Normal 14.0-18.0 [facility] Comment on above: Performed By: #### C BC #### [facility] [address] [place] [address] Dr. Dwight Waters IG # 0.01 10e3/ul Normal 0.00-0.03 [facility] Comment on above: Performed By: #### C BC #### [facility] [address] [place] [address] Dr. Dwight Waters IG % 0.2 % Normal 0.0-0.5 [facility] Comment on above: Performed By: #### C BC #### [facility] [address] [place] [address] Dr. Dwight Waters LYMPH # 2.1 103/ul Normal 1.2-3.8 [facility] Comment on above: Performed By: #### C BC #### [facility] [address] [place] [address] Dr. Dwight Waters Lymphocytes/100 WBC (Bld) 37.4 % Normal 20.5-60.0 [facility] Comment on above: Performed By: #### C BC #### [facility] [address] [place] [address] Dr. Dwight Waters MANUAL DIFF REQ NO Normal [facility] Comment on above: Performed By: #### C BC #### [facility] [address] [place] [address] Dr. Dwight Waters MCH (RBC) [Entitic mass] 28.3 pg Normal 25.9-34.0 [facility] Comment on above: Performed By: #### C BC #### [facility] [address] [place] [address] Dr. Dwight Waters MCHC (RBC) [Mass/Vol] 33.0 g/dL Normal 29.9-35.2 [facility] Comment on above: Performed By: #### C BC #### [facility] [address] [place] [address] Dr. Dwight Waters MCV (RBC) [Entitic vol] 85.8 fL Normal 80.0-94.0 [facility] Comment on above: Performed By: #### C BC #### [facility] [address] [place] [address] Dr. Dwight Waters MONO # 0.6 103/ul Normal 0.3-0.8 [facility] Comment on above: Performed By: #### C BC #### [facility] [address] [place] [address] Dr. Dwight Waters Monocytes/100 WBC (Bld) 10.2 % Normal 1.7-12.0 [facility] Comment on above: Performed By: #### C BC #### [facility] [address] [place] [address] Dr. Dwight Waters NEUT # 2.7 103/ul Normal 1.4-6.5 [facility] Comment on above: Performed By: #### C BC #### [facility] [address] [address] [address] Dwight Waters Neutrophils/100 WBC (Bld) 47.8 % Normal 43.0-75.0 [facility] Comment on above: Performed By: #### C BC #### [facility] [address] [address] [address] Dwight Waters Platelet mean volume (Bld) [Entitic vol] 9.3 fL Critically low 9.5-13.5 [facility] Comment on above: Performed By: #### C BC #### [facility] [address] [address] [address] Dwight Waters PLT 241 103/ul Normal 150-450 [facility] Comment on above: Performed By: #### C BC #### [facility] [address] [place] [address] Dr. Dwight Waters RBC 5.62 106/ul Normal 4.70-6.10 [facility] Comment on above: Performed By: #### C BC #### [facility] [address] [address] [address] Dwight Waters WBC 5.7 103/ul Normal 4.0-11.0 [facility] Comment on above: Performed By: #### C BC #### [facility] [address] [place] [address] Dr. Dwight Waters GGTon 03-02-2023 Gamma glutamyl transferase [Catalytic activity/Vol] 25 U/L Normal 15-85 [facility] Comment on above: Performed By: #### U RTPCR #### [facility] [address] [place] [address] Dr. Dwight Waters MAGNESIUMon 03-02-2023 Magnesium [Mass/Vol] 1.6 mg/dL Critically low 1.8-2.4 [facility] Comment on above: Performed By: #### U RTPCR #### [facility] [address] [place] [address] Dr. Dwight Waters PHOSPHORUSon 03-02-2023 Phosphate [Mass/Vol] 3.6 mg/dL Normal 2.6-4.7 [facility] Comment on above: Performed By: #### U RTPCR #### [facility] [address] [place] [address] Dr. Dwight Waters PROF CHEM 8 (BAS METB)on Anion gap [Moles/Vol] 9.4 mmol/L Normal [facility] Comment on above: Performed By: #### U RTPCR #### [facility] [address] [place] [address] Dr. Dwight Waters Calcium [Mass/Vol] 9.3 mg/dL Normal 8.5-10.1 [facility] Comment on above: Performed By: #### U RTPCR #### [facility] [address] [place] [address] Dr. Dwight Waters Chloride [Moles/Vol] 108 mmol/L Critically high 98-107 [facility] Comment on above: Performed By: #### U RTPCR #### [facility] [address] [place] [address] Dr. Dwight Waters CO2 [Moles/Vol] 27.2 mmol/L Normal 21.0-32.0 [facility] Comment on above: Performed By: #### U RTPCR #### [facility] [address] [place] [address] Dr. Dwight Waters Creatinine [Mass/Vol] 1.12 mg/dL Normal 0.70-1.30 [facility] Comment on above: Performed By: #### U RTPCR #### [facility] [address] [place] [address] Dr. wDight Waters EGFR-AF SALVADOREAN >60 Normal >=60 [facility] Comment on above: Performed By: #### U RTPCR #### [facility] [address] [place] [address] Dr. Dwight Waters EGFR-NON AF SALVADOREAN >60 Normal >=60 [facility] Comment on above: Performed By: #### U RTPCR #### [facility] [address] [place] [address] Dr. Dwight Waters Glucose [Mass/Vol] 113 mg/dL Critically high 74-106 T [facility] Comment on above: Performed By: #### U RTPCR #### [facility] [address] [place] [address] Dr. Dwight Waters Potassium [Moles/Vol] 3.6 mmol/L Normal 3.5-5.1 [facility] Comment on above: Performed By: #### U RTPCR #### [facility] [address] [place] [address] Dr. Dwight Waters Sodium [Moles/Vol] 141 mmol/L Normal 136-145 [facility] Comment on above: Performed By: #### U RTPCR #### [facility] [address] [place] [address] Dr. Dwight Waters Urea nitrogen [Mass/Vol] 14.0 mg/dL Normal 7.0-18.0 [facility] Comment on above: Performed By: #### U RTPCR #### [facility] [address] [place] [address] Dr. Dwight Waters Urea nitrogen/Creatinine [Mass ratio] 12.5 mg/mg Normal [facility] Comment on above: Performed By: #### U RTPCR #### [facility] [address] [place] [address] Dr. Dwight Waters SGOTon 03-02-2023 AST [Catalytic activity/Vol] 20 U/L Normal 15-37 [facility] Comment on above: Performed By: #### U RTPCR #### [facility] [address] [place] [address] Dr. Dwight Waters SGPTon 03-02-2023 ALT [Catalytic activity/Vol] 30 U/L Normal 16-63 [facility] Comment on above: Performed By: #### U RTPCR #### [facility] [address] [place] [address] Dr. Dwight Waters URINE T PROTEIN CREAT RATIOo n 03-02-2023 Protein (U) [Mass/Vol] 10.3 mg/dL Normal <=12.0 [facility] Comment on above: Performed By: #### U RTPCR #### [facility] [address] [place] [address] Dr. Dwight Waters UR PROT CREAT RAT 0.15 Normal [facility] Comment on above: Performed By: #### U RTPCR #### [facility] [address] [place] [address] Dr. Dwight Waters URINE CREAT 68.96 mg/dL Normal 20.00-300.00 [facility] Comment on above: Performed By: #### U RTPCR #### [facility] [address] [place] [address] Dr. Dwight Waters BK VIRUS PCR QUANTon 023 BKV DNA QUANT PCR PLASMA Negative Normal Negative [facility] Comment on above: Result Comment: No B K DNA detected. . The linear range of the assay is 22 - 100,000,000 IU/mL. Performed By: #### C MP #### [facility] [address] [place] [address] Dr. Dwight Waters Log10 BKV DNA Plasma Normal [facility] Comment on above: Performed By: #### C MP #### [facility] [address] [place] [address] Dr. Dwight Waters FK506 (TACROLIMUS) WHOLE BLO ODon 12-31-2022 Tacrolimus (FK506), Blood 5.6 ng/mL Normal 2.0-20.0 [facility] Comment on above: Result Comment: Trou gh (immediately following transplant) 15.0 . Trough (steady state, 2 weeks or more after transplant): 3.0 - 8.0 . Performed by LC-MS/MS technology. Performed By: #### C MP #### [facility] [address] [place] [address] Dr. Dwight Waters ALKALINE PHOSPHAon ALP [Catalytic activity/Vol] 96 U/L Normal 46-116 [facility] Comment on above: Performed By: #### C BC #### [facility] [address] [place] [address] Dr. Dwight Waters BILIRUBIN CONJUGATED (DIRECT )on 12-29-2022 BILI, CONJUGATED 0.3 mg/dL Critically high 0.0-0.2 [facility] Comment on above: Performed By: #### C BC #### [facility] [address] [place] [address] Dr. Dwight Waters BILIRUBIN TOTALon 12-29-2022 Bilirubin [Mass/Vol] 1.1 mg/dL Critically high 0.2-1.0 [facility] Comment on above: Performed By: #### C BC #### [facility] [address] [place] [address] Dr. Dwight Waters CBC AUTO DIFFon 12-29-2022 BASO # 0.1 103/ul Normal 0.0-0.1 [facility] Comment on above: Performed By: #### C MP #### [facility] [address] [place] [address] Dr. Dwight Waters Basophils/100 WBC (Bld) 0.8 % Normal 0.2-2.0 [facility] Comment on above: Performed By: #### C MP #### [facility] [address] [place] [address] Dr. Dwight Waters EO # 0.2 103/ul Normal 0.0-0.7 [facility] Comment on above: Performed By: #### C MP #### [facility] [address] [place] [address] Dr. Dwight Waters Eosinophils/100 WBC (Bld) 3.0 % Normal 0.9-7.0 [facility] Comment on above: Performed By: #### C MP #### [facility] [address] [place] [address] Dr. Dwight Waters Erythrocyte distribution width (RBC) [Ratio] 12.9 % Normal 11.0-15.0 [facility] Comment on above: Performed By: #### C MP #### [facility] [address] [place] [address] Dr. Dwight Waters Hematocrit (Bld) [Volume fraction] 46.9 % Normal 42.0-54.0 [facility] Comment on above: Performed By: #### C MP #### [facility] [address] [place] [address] Dr. Dwight Waters Hemoglobin (Bld) [Mass/Vol] 16.1 g/dL Normal 14.0-18.0 [facility] Comment on above: Performed By: #### C MP #### [facility] [address] [place] [address] Dr. Dwight Waters IG # 0.01 10e3/ul Normal 0.00-0.03 [facility] Comment on above: Performed By: #### C MP #### [facility] [address] [place] [address] Dr. Dwight Waters IG % 0.2 % Normal 0.0-0.5 [facility] Comment on above: Performed By: #### C MP #### [facility] [address] [place] [address] Dr. Dwight Waters LYMPH # 1.8 103/ul Normal 1.2-3.8 [facility] Comment on above: Performed By: #### C MP #### [facility] [address] [place] [address] Dr. Dwight Waters Lymphocytes/100 WBC (Bld) 27.9 % Normal 20.5-60.0 [facility] Comment on above: Performed By: #### C MP #### [facility] [address] [place] [address] Dr. Dwight Waters MANUAL DIFF REQ NO Normal [facility] Comment on above: Performed By: #### C MP #### [facility] [address] [place] [address] Dr. Dwight Waters MCH (RBC) [Entitic mass] 28.5 pg Normal 25.9-34.0 [facility] Comment on above: Performed By: #### C MP #### [facility] [address] [place] [address] Dr. Dwight Waters MCHC (RBC) [Mass/Vol] 34.3 g/dL Normal 29.9-35.2 [facility] Comment on above: Performed By: #### C MP #### [facility] [address] [place] [address] Dr. Dwight Waters MCV (RBC) [Entitic vol] 83.2 fL Normal 80.0-94.0 [facility] Comment on above: Performed By: #### C MP #### [facility] [address] [address] [address] Dwight Waters MONO # 0.5 103/ul Normal 0.3-0.8 [facility] Comment on above: Performed By: #### C MP #### [facility] [address] [address] [address] Dwight Waters Monocytes/100 WBC (Bld) 8.1 % Normal 1.7-12.0 [facility] Comment on above: Performed By: #### C MP #### [facility] [address] [place] [address] Dr. Dwight Waters NEUT # 3.8 103/ul Normal 1.4-6.5 [facility] Comment on above: Performed By: #### C MP #### [facility] [address] [place] [address] Dr. Dwight Waters Neutrophils/100 WBC (Bld) 60.0 % Normal 43.0-75.0 [facility] Comment on above: Performed By: #### C MP #### [facility] [address] [place] [address] Dr. Dwight Waters Platelet mean volume (Bld) [Entitic vol] 9.2 fL Critically low 9.5-13.5 [facility] Comment on above: Performed By: #### C MP #### [facility] [address] [place] [address] Dr. Dwight Waters PLT 225 103/ul Normal 150-450 [facility] Comment on above: Performed By: #### C MP #### [facility] [address] [place] [address] Dr. Dwight Waters RBC 5.64 106/ul Normal 4.70-6.10 [facility] Comment on above: Performed By: #### C MP #### [facility] [address] [place] [address] Dr. Dwight Waters WBC 6.3 103/ul Normal 4.0-11.0 [facility] Comment on above: Performed By: #### C MP #### [facility] [address] [address] [address] Dwight Waters GGTon 12-29-2022 Gamma glutamyl transferase [Catalytic activity/Vol] 24 U/L Normal 15-85 [facility] Comment on above: Performed By: #### C MP #### [facility] [address] [address] [address] Dwight Waters LIPID PROFILEon 12-29-2022 CHOL-HDL RATIO NORM SEE BELOW Normal [facility] Comment on above: Result Comment: 3.3 - 4.4 LOW RISK 4.4 - 7.1 AVERAGE RISK 7.1 - 11.0 MODERATE RISK >11.0 HIGH RISK Performed By: #### U RTPCR #### [facility] [address] [place] [address] Dr. Dwight Waters Cholesterol [Mass/Vol] 87 mg/dL Normal <=200 [facility] Comment on above: Performed By: #### U RTPCR #### [facility] [address] [address] [address] Dwight Waters Cholesterol in HDL [Mass/Vol] 44 mg/dL Normal 40-60 [facility] Comment on above: Performed By: #### U RTPCR #### [facility] [address] [address] [address] Dwight Waters Cholesterol in LDL [Mass/Vol] 33.0 mg/dL Normal [facility] Comment on above: Performed By: #### U RTPCR #### [facility] [address] [address] [address] Dwight Waters Cholesterol.total/Ch olesterol in HDL [Mass ratio] 2.0 {ratio} Normal [facility] Comment on above: Performed By: #### U RTPCR #### [facility] [address] [address] [address] Dwight Waters HDL NORMAL > or = 60 mg/dl - LO W CARDIOVASCULAR RISK <40 mg/dl - HIGH CARDIOVASCULAR RISK Normal [facility] Comment on above: Performed By: #### U RTPCR #### [facility] [address] [place] [address] Dr. Dwight Waters LDL CALC NORMAL SEE BELOW Normal [facility] Comment on above: Result Comment: <100 mg/dl OPTIMAL 100 - 129 mg/dl NEAR OR ABOVE OPTIMAL 130 - 159 mg/dl BORDERLINE HIGH 160 - 189 mg/dl HIGH >190 mg/dl VERY HIGH Performed By: #### U RTPCR #### [facility] [address] [place] [address] Dr. Dwight Waters Triglyceride [Mass/Vol] 50 mg/dL Normal <=150 [facility] Comment on above: Performed By: #### U RTPCR #### [facility] [address] [place] [address] Dr. Dwight Waters VLDL CALC 10.0 mg/dL Normal [facility] Comment on above: Performed By: #### U RTPCR #### [facility] [address] [place] [address] Dr. Dwight Waters MAGNESIUMon 12-29-2022 Magnesium [Mass/Vol] 1.6 mg/dL Critically low 1.8-2.4 [facility] Comment on above: Performed By: #### C BC #### [facility] [address] [place] [address] Dr. Dwight Waters RENAL FUNCTION PANELon 12-29 Albumin [Mass/Vol] 3.9 g/dL Normal 3.4-5.0 [facility] Comment on above: Performed By: #### C BC #### [facility] [address] [place] [address] Dr. Dwight Waters Calcium [Mass/Vol] 9.2 mg/dL Normal 8.5-10.1 [facility] Comment on above: Performed By: #### C BC #### [facility] [address] [place] [address] Dr. Dwight Waters Chloride [Moles/Vol] 109 mmol/L Critically high 98-107 [facility] Comment on above: Performed By: #### C BC #### [facility] [address] [place] [address] Dr. Dwight Waters CO2 [Moles/Vol] 27.0 mmol/L Normal 21.0-32.0 [facility] Comment on above: Performed By: #### C BC #### [facility] [address] [place] [address] Dr. Dwight Waters Creatinine [Mass/Vol] 1.02 mg/dL Normal 0.70-1.30 [facility] Comment on above: Performed By: #### C BC #### [facility] [address] [address] [address] Dwight Waters EGFR-AF SALVADOREAN >60 Normal >=60 [facility] Comment on above: Performed By: #### C BC #### [facility] [address] [place] [address] Dr. Dwight Waters EGFR-NON AF SALVADOREAN >60 Normal >=60 [facility] Comment on above: Performed By: #### C BC #### [facility] [address] [place] [address] Dr. Dwight Waters Glucose [Mass/Vol] 117 mg/dL Critically high 74-106 [facility] Comment on above: Performed By: #### C BC #### [facility] [address] [place] [address] Dr. Dwight Waters Phosphate [Mass/Vol] 3.2 mg/dL Normal 2.6-4.7 [facility] Comment on above: Performed By: #### C BC #### [facility] [address] [place] [address] Dr. Dwight Waters Potassium [Moles/Vol] 4.1 mmol/L Normal 3.5-5.1 [facility] Comment on above: Performed By: #### C BC #### [facility] [address] [place] [address] Dr. Dwight Waters Sodium [Moles/Vol] 144 mmol/L Normal 136-145 [facility] Comment on above: Performed By: #### C BC #### [facility] [address] [place] [address] Dr. Dwight Waters Urea nitrogen [Mass/Vol] 13.0 mg/dL Normal 7.0-18.0 [facility] Comment on above: Performed By: #### C BC #### [facility] [address] [place] [address] Dr. Dwight OLVERAParkern 12-29-2022 AST [Catalytic activity/Vol] 21 U/L Normal 15-37 [facility] Comment on above: Performed By: #### C BC #### [facility] [address] [place] [address] Dr. Dwight Waters SGPTon 12-29-2022 ALT [Catalytic activity/Vol] 32 U/L Normal 16-63 [facility] Comment on above: Performed By: #### C BC #### [facility] [address] [place] [address] Dr. Dwight Waters URINE T PROTEIN CREAT RATIOo n 12-29-2022 Protein (U) [Mass/Vol] 14.3 mg/dL Critically high <=12.0 [facility] Comment on above: Performed By: #### U RTPCR #### [facility] [address] [place] [address] Dr. Dwight Waters UR PROT CREAT RAT 0.17 Normal [facility] Comment on above: Performed By: #### U RTPCR #### [facility] [address] [place] [address] Dr. Dwight Waters URINE CREAT 86.58 mg/dL Normal 20.00-300.00 [facility] Comment on above: Performed By: #### U RTPCR #### [facility] [address] [place] [address] Dr. Dwight Waters FK506 (TACROLIMUS) WHOLE BLO ODon 11-06-2022 Tacrolimus (FK506), Blood 4.9 ng/mL Normal 2.0-20.0 [facility] Comment on above: Result Comment: Trou gh (immediately following transplant) 15.0 . Trough (steady state, 2 weeks or more after transplant): 3.0 - 8.0 . Performed by LC-MS/MS technology. Performed By: #### U RTPCR #### [facility] [address] [place] [address] Dr. Dwight Waters ALKALINE PHOSPHAon 2 ALP [Catalytic activity/Vol] 86 U/L Normal 46-116 [facility] Comment on above: Performed By: #### U RTPCR #### [facility] [address] [place] [address] Dr. Dwight Waters BILIRUBIN CONJUGATED (DIRECT )on 11-04-2022 BILI, CONJUGATED 0.2 mg/dL Normal 0.0-0.2 [facility] Comment on above: Performed By: #### U RTPCR #### [facility] [address] [place] [address] Dr. Dwight Waters BILIRUBIN TOTALon 11-04-2022 Bilirubin [Mass/Vol] 0.8 mg/dL Normal 0.2-1.0 [facility] Comment on above: Performed By: #### U RTPCR #### [facility] [address] [place] [address] Dr. Dwight Waters CBC AUTO DIFFon 11-04-2022 BASO # 0.1 103/ul Normal 0.0-0.1 [facility] Comment on above: Performed By: #### U RTPCR #### [facility] [address] [place] [address] Dr. Dwight Waters Basophils/100 WBC (Bld) 0.9 % Normal 0.2-2.0 [facility] Comment on above: Performed By: #### U RTPCR #### [facility] [address] [place] [address] Dr. Dwight Waters EO # 0.2 103/ul Normal 0.0-0.7 [facility] Comment on above: Performed By: #### U RTPCR #### [facility] [address] [place] [address] Dr. Dwight Waters Eosinophils/100 WBC (Bld) 3.7 % Normal 0.9-7.0 [facility] Comment on above: Performed By: #### U RTPCR #### [facility] [address] [place] [address] Dr. Dwight Waters Erythrocyte distribution width (RBC) [Ratio] 12.9 % Normal 11.0-15.0 [facility] Comment on above: Performed By: #### U RTPCR #### [facility] [address] [place] [address] Dr. Dwight Waters Hematocrit (Bld) [Volume fraction] 48.3 % Normal 42.0-54.0 [facility] Comment on above: Performed By: #### U RTPCR #### [facility] [address] [place] [address] Dr. Dwight Waters Hemoglobin (Bld) [Mass/Vol] 15.6 g/dL Normal 14.0-18.0 [facility] Comment on above: Performed By: #### U RTPCR #### [facility] [address] [place] [address] Dr. Dwight Waters IG # 0.01 10e3/ul Normal 0.00-0.03 [facility] Comment on above: Performed By: #### U RTPCR #### [facility] [address] [place] [address] Dr. Dwight Waters IG % 0.2 % Normal 0.0-0.5 [facility] Comment on above: Performed By: #### U RTPCR #### [facility] [address] [place] [address] Dr. Dwight Waters LYMPH # 1.9 103/ul Normal 1.2-3.8 [facility] Comment on above: Performed By: #### U RTPCR #### [facility] [address] [place] [address] Dr. Dwight Waters Lymphocytes/100 WBC (Bld) 33.0 % Normal 20.5-60.0 [facility] Comment on above: Performed By: #### U RTPCR #### [facility] [address] [place] [address] Dr. Dwight Waters MANUAL DIFF REQ NO Normal [facility] Comment on above: Performed By: #### U RTPCR #### [facility] [address] [place] [address] Dr. Dwight Waters MCH (RBC) [Entitic mass] 27.6 pg Normal 25.9-34.0 [facility] Comment on above: Performed By: #### U RTPCR #### [facility] [address] [place] [address] Dr. Dwight Waters MCHC (RBC) [Mass/Vol] 32.3 g/dL Normal 29.9-35.2 [facility] Comment on above: Performed By: #### U RTPCR #### [facility] [address] [place] [address] Dr. Dwight Waters MCV (RBC) [Entitic vol] 85.5 fL Normal 80.0-94.0 [facility] Comment on above: Performed By: #### U RTPCR #### [facility] [address] [place] [address] Dr. Dwight Waters MONO # 0.5 103/ul Normal 0.3-0.8 [facility] Comment on above: Performed By: #### U RTPCR #### [facility] [address] [place] [address] Dr. Dwight Waters Monocytes/100 WBC (Bld) 8.8 % Normal 1.7-12.0 [facility] Comment on above: Performed By: #### U RTPCR #### [facility] [address] [place] [address] Dr. Dwight Waters NEUT # 3.1 103/ul Normal 1.4-6.5 [facility] Comment on above: Performed By: #### U RTPCR #### [facility] [address] [place] [address] Dr. Dwight Waters Neutrophils/100 WBC (Bld) 53.4 % Normal 43.0-75.0 [facility] Comment on above: Performed By: #### U RTPCR #### [facility] [address] [place] [address] Dr. Dwight Waters Platelet mean volume (Bld) [Entitic vol] 9.2 fL Critically low 9.5-13.5 [facility] Comment on above: Performed By: #### U RTPCR #### [facility] [address] [place] [address] Dr. Dwight Waters PLT 255 103/ul Normal 150-450 [facility] Comment on above: Performed By: #### U RTPCR #### [facility] [address] [place] [address] Dr. Dwight Waters RBC 5.65 106/ul Normal 4.70-6.10 [facility] Comment on above: Performed By: #### U RTPCR #### [facility] [address] [place] [address] Dr. Dwight Waters WBC 5.7 103/ul Normal 4.0-11.0 [facility] Comment on above: Performed By: #### U RTPCR #### [facility] [address] [place] [address] Dr. Dwight Waters GGTon 11-04-2022 Gamma glutamyl transferase [Catalytic activity/Vol] 22 U/L Normal 15-85 [facility] Comment on above: Performed By: #### U RTPCR #### [facility] [address] [place] [address] Dr. Dwight Waters MAGNESIUMon 11-04-2022 Magnesium [Mass/Vol] 1.8 mg/dL Normal 1.8-2.4 [facility] Comment on above: Performed By: #### U RTPCR #### [facility] [address] [place] [address] Dr. Dwight Waters RENAL FUNCTION PANELon 11-04 Albumin [Mass/Vol] 3.8 g/dL Normal 3.4-5.0 [facility] Comment on above: Performed By: #### U RTPCR #### [facility] [address] [place] [address] Dr. Dwight Waters Calcium [Mass/Vol] 9.3 mg/dL Normal 8.5-10.1 [facility] Comment on above: Performed By: #### U RTPCR #### [facility] [address] [place] [address] Dr. Dwight Waters Chloride [Moles/Vol] 107 mmol/L Normal 98-107 [facility] Comment on above: Performed By: #### U RTPCR #### [facility] [address] [place] [address] Dr. Dwight Waters CO2 [Moles/Vol] 29.2 mmol/L Normal 21.0-32.0 [facility] Comment on above: Performed By: #### U RTPCR #### [facility] [address] [place] [address] Dr. Dwight Waters Creatinine [Mass/Vol] 1.07 mg/dL Normal 0.70-1.30 [facility] Comment on above: Performed By: #### U RTPCR #### [facility] [address] [place] [address] Dr. Dwight Waters EGFR-AF SALVADOREAN >60 Normal >=60 [facility] Comment on above: Performed By: #### U RTPCR #### [facility] [address] [place] [address] Dr. Dwight Waters EGFR-NON AF SALVADOREAN >60 Normal >=60 [facility] Comment on above: Performed By: #### U RTPCR #### [facility] [address] [place] [address] Dr. Dwight Waters Glucose [Mass/Vol] 106 mg/dL Normal 74-106 [facility] Comment on above: Performed By: #### U RTPCR #### [facility] [address] [place] [address] Dr. Dwight Waters Phosphate [Mass/Vol] 2.8 mg/dL Normal 2.6-4.7 [facility] Comment on above: Performed By: #### U RTPCR #### [facility] [address] [place] [address] Dr. Dwight Waters Potassium [Moles/Vol] 4.1 mmol/L Normal 3.5-5.1 [facility] Comment on above: Performed By: #### U RTPCR #### [facility] [address] [place] [address] Dr. Dwight Waters Sodium [Moles/Vol] 143 mmol/L Normal 136-145 [facility] Comment on above: Performed By: #### U RTPCR #### [facility] [address] [place] [address] Dr. Dwight Waters Urea nitrogen [Mass/Vol] 12.0 mg/dL Normal 7.0-18.0 [facility] Comment on above: Performed By: #### U RTPCR #### [facility] [address] [place] [address] Dr. Dwight Waters SGOTon 11-04-2022 AST [Catalytic activity/Vol] 19 U/L Normal 15-37 [facility] Comment on above: Performed By: #### U RTPCR #### [facility] [address] [place] [address] Dr. Dwight Waters SGPTon 11-04-2022 ALT [Catalytic activity/Vol] 28 U/L Normal 16-63 [facility] Comment on above: Performed By: #### U RTPCR #### [facility] [address] [place] [address] Dr. Dwight Waters URINE T PROTEIN CREAT RATIOo n 11-04-2022 Protein (U) [Mass/Vol] 10.7 mg/dL Normal <=12.0 [facility] Comment on above: Performed By: #### U RTPCR #### [facility] [address] [place] [address] Dr. Dwight Waters UR PROT CREAT RAT 0.13 Normal [facility] Comment on above: Performed By: #### U RTPCR #### [facility] [address] [place] [address] Dr. Dwight Waters URINE CREAT 84.50 mg/dL Normal 20.00-300.00 [facility] Comment on above: Performed By: #### U RTPCR #### [facility] [address] [place] [address] Dr. Dwight Waters FK506 (TACROLIMUS) WHOLE BLO ODon 09-18-2022 Tacrolimus (FK506), Blood 4.6 ng/mL Normal 2.0-20.0 [facility] Comment on above: Result Comment: Trou gh (immediately following transplant) 15.0 . Trough (steady state, 2 weeks or more after transplant): 3.0 - 8.0 . Performed by LC-MS/MS technology. Performed By: #### U RTPCR #### [facility] [address] [place] [address] Dr. Dwight Waters BK VIRUS PCR QUANTon 022 BKV DNA QUANT PCR PLASMA Negative Normal Negative [facility] Comment on above: Result Comment: No B K DNA detected. . The linear range of the assay is 22 - 100,000,000 IU/mL. Performed By: #### U RTPCR #### [facility] [address] [place] [address] Dr. Dwight Waters Log10 BKV DNA Plasma Normal [facility] Comment on above: Performed By: #### U RTPCR #### [facility] [address] [place] [address] Dr. Dwight Waters ALKALINE PHOSPHAon ALP [Catalytic activity/Vol] 92 U/L Normal 46-116 [facility] Comment on above: Performed By: #### U RTPCR #### [facility] [address] [place] [address] Dr. Dwight Waters BILIRUBIN CONJUGATED (DIRECT )on 09-15-2022 BILI, CONJUGATED 0.3 mg/dL Critically high 0.0-0.2 [facility] Comment on above: Performed By: #### U RTPCR #### [facility] [address] [place] [address] Dr. Dwight Waters BILIRUBIN TOTALon 09-15-2022 Bilirubin [Mass/Vol] 1.1 mg/dL Critically high 0.2-1.0 [facility] Comment on above: Performed By: #### U RTPCR #### [facility] [address] [place] [address] Dr. Dwight Waters CBC AUTO DIFFon 09-15-2022 BASO # 0.1 103/ul Normal 0.0-0.1 [facility] Comment on above: Performed By: #### C BC #### [facility] [address] [place] [address] Dr. Dwight Waters Basophils/100 WBC (Bld) 0.8 % Normal 0.2-2.0 [facility] Comment on above: Performed By: #### C BC #### [facility] [address] [place] [address] Dr. Dwight Waters EO # 0.2 103/ul Normal 0.0-0.7 [facility] Comment on above: Performed By: #### C BC #### [facility] [address] [place] [address] Dr. Dwight Waters Eosinophils/100 WBC (Bld) 3.5 % Normal 0.9-7.0 [facility] Comment on above: Performed By: #### C BC #### [facility] [address] [place] [address] Dr. Dwight Waters Erythrocyte distribution width (RBC) [Ratio] 13.0 % Normal 11.0-15.0 [facility] Comment on above: Performed By: #### C BC #### [facility] [address] [place] [address] Dr. Dwight Waters Hematocrit (Bld) [Volume fraction] 50.0 % Normal 42.0-54.0 [facility] Comment on above: Performed By: #### C BC #### [facility] [address] [place] [address] Dr. Dwight Waters Hemoglobin (Bld) [Mass/Vol] 16.0 g/dL Normal 14.0-18.0 [facility] Comment on above: Performed By: #### C BC #### [facility] [address] [place] [address] Dr. Dwight Waters IG # 0.02 10e3/ul Normal 0.00-0.03 [facility] Comment on above: Performed By: #### C BC #### [facility] [address] [place] [address] Dr. Dwight Waters IG % 0.3 % Normal 0.0-0.5 [facility] Comment on above: Performed By: #### C BC #### [facility] [address] [place] [address] Dr. Dwight Waters LYMPH # 1.8 103/ul Normal 1.2-3.8 [facility] Comment on above: Performed By: #### C BC #### [facility] [address] [place] [address] Dr. Dwight Waters Lymphocytes/100 WBC (Bld) 26.5 % Normal 20.5-60.0 [facility] Comment on above: Performed By: #### C BC #### [facility] [address] [place] [address] Dr. Dwight Waters MANUAL DIFF REQ NO Normal [facility] Comment on above: Performed By: #### C BC #### [facility] [address] [address] [address] Dwight Waters MCH (RBC) [Entitic mass] 28.1 pg Normal 25.9-34.0 [facility] Comment on above: Performed By: #### C BC #### [facility] [address] [place] [address] Dr. Dwight Waters MCHC (RBC) [Mass/Vol] 32.0 g/dL Normal 29.9-35.2 [facility] Comment on above: Performed By: #### C BC #### [facility] [address] [place] [address] Dr. Dwight Waters MCV (RBC) [Entitic vol] 87.9 fL Normal 80.0-94.0 [facility] Comment on above: Performed By: #### C BC #### [facility] [address] [place] [address] Dr. Dwight Waters MONO # 0.5 103/ul Normal 0.3-0.8 [facility] Comment on above: Performed By: #### C BC #### [facility] [address] [place] [address] Dr. Dwight Waters Monocytes/100 WBC (Bld) 8.1 % Normal 1.7-12.0 [facility] Comment on above: Performed By: #### C BC #### [facility] [address] [place] [address] Dr. Dwight Waters NEUT # 4.0 103/ul Normal 1.4-6.5 [facility] Comment on above: Performed By: #### C BC #### [facility] [address] [place] [address] Dr. Dwight Waters Neutrophils/100 WBC (Bld) 60.8 % Normal 43.0-75.0 [facility] Comment on above: Performed By: #### C BC #### [facility] [address] [place] [address] Dr. Dwight Waters Platelet mean volume (Bld) [Entitic vol] 9.4 fL Critically low 9.5-13.5 [facility] Comment on above: Performed By: #### C BC #### [facility] [address] [place] [address] Dr. Dwight Waters PLT 265 103/ul Normal 150-450 [facility] [facility] Comment [facility]: Performed By: #### C BC #### [facility] [address] [place] [address] Dr. Dwight Waters RBC 5.69 106/ul Normal 4.70-6.10 [facility] Comment on above: Performed By: #### C BC #### [facility] [address] [place] [address] Dr. Dwight Waters WBC 6.6 103/ul Normal 4.0-11.0 [facility] Comment on above: Performed By: #### C BC #### [facility] [address] [place] [address] Dr. Dwight Waters GGTon 09-15-2022 Gamma glutamyl transferase [Catalytic activity/Vol] 23 U/L Normal 15-85 [facility] Comment on above: Performed By: #### U RTPCR #### [facility] [address] [place] [address] Dr. Dwight Waters MAGNESIUMon 09-15-2022 Magnesium [Mass/Vol] 1.8 mg/dL Normal 1.8-2.4 [facility] Comment on above: Performed By: #### U RTPCR #### [facility] [address] [place] [address] Dr. Dwight Waters RENAL FUNCTION PANELon 09-15 Albumin [Mass/Vol] 4.1 g/dL Normal 3.4-5.0 [facility] Comment on above: Performed By: #### C BC #### [facility] [address] [place] [address] Dr. Dwight Waters Calcium [Mass/Vol] 9.3 mg/dL Normal 8.5-10.1 [facility] Comment on above: Performed By: #### C BC #### [facility] [address] [place] [address] Dr. Dwight Waters Chloride [Moles/Vol] 107 mmol/L Normal 98-107 [facility] Comment on above: Performed By: #### C BC #### [facility] [address] [address] [address] Dwight Waters CO2 [Moles/Vol] 25.6 mmol/L Normal 21.0-32.0 [facility] Comment on above: Performed By: #### C BC #### [facility] [address] [address] [address] Dwight Waters Creatinine [Mass/Vol] 1.01 mg/dL Normal 0.70-1.30 [facility] Comment on above: Performed By: #### C BC #### [facility] [address] [place] [address] Dr. Dwight Waters EGFR-AF SALVADOREAN >60 Normal >=60 [facility] Comment on above: Performed By: #### C BC #### [facility] [address] [place] [address] Dr. Dwight Waters EGFR-NON AF SALVADOREAN >60 Normal >=60 [facility] Comment on above: Performed By: #### C BC #### [facility] [address] [place] [address] Dr. Dwight Waters Glucose [Mass/Vol] 119 mg/dL Critically high 74-106 [facility] Comment on above: Performed By: #### C BC #### [facility] [address] [place] [address] Dr. Dwight Waters Phosphate [Mass/Vol] 2.8 mg/dL Normal 2.6-4.7 [facility] Comment on above: Performed By: #### C BC #### [facility] [address] [place] [address] Dr. Dwight Waters Potassium [Moles/Vol] 4.0 mmol/L Normal 3.5-5.1 [facility] Comment on above: Performed By: #### C BC #### [facility] [address] [place] [address] Dr. Dwight Waters Sodium [Moles/Vol] 141 mmol/L Normal 136-145 [facility] Comment on above: Performed By: #### C BC #### [facility] [address] [address] [address] Dwight Waters Urea nitrogen [Mass/Vol] 15.0 mg/dL Normal 7.0-18.0 [facility] Comment on above: Performed By: #### C BC #### [facility] [address] [place] [address] Dr. Dwight Waters SGOTon 09-15-2022 AST [Catalytic activity/Vol] 18 U/L Normal 15-37 [facility] Comment on above: Performed By: #### U RTPCR #### [facility] [address] [place] [address] Dr. Dwight Waters SGPTon 09-15-2022 ALT [Catalytic activity/Vol] 32 U/L Normal 16-63 [facility] Comment on above: Performed By: #### C BC #### [facility] [address] [place] [address] Dr. Dwight Waters URINE T PROTEIN CREAT RATIOo n 09-15-2022 Protein (U) [Mass/Vol] 14.1 mg/dL Critically high <=12.0 [facility] Comment on above: Performed By: #### U RTPCR #### [facility] [address] [place] [address] Dr. Dwight Waters UR PROT CREAT RAT 0.14 Normal [facility] Comment on above: Performed By: #### U RTPCR #### [facility] [address] [place] [address] Dr. Dwight Waters URINE CREAT 98.89 mg/dL Normal 20.00-300.00 [facility] Comment on above: Performed By: #### U RTPCR #### [facility] [address] [place] [address] Dr. Dwight Waters US CAROTID ART BILon [...] without significant narrowing. Electronically authenticated by: MÓNICA HAYESMITRASANDRA Date: 2022-08-28 13:20 Normal [facility] FK506 (TACROLIMUS) WHOLE BLO ODon 08-17-2022 Tacrolimus (FK506), Blood 9.9 ng/mL Normal 2.0-20.0 [facility] Comment on above: Result Comment: Trou gh (immediately following transplant) 15.0 . Trough (steady state, 2 weeks or more after transplant): 3.0 - 8.0 . Performed by LC-MS/MS technology. Performed By: #### F [id number] #### [facility] [address] [place] [address] Dr. Dwight Waters BK VIRUS PCR QUANTon 022 BKV DNA QUANT PCR PLASMA Negative Normal Negative [facility] Comment on above: Result Comment: No B K DNA detected. . The linear range of the assay is 22 - 100,000,000 IU/mL. Performed By: #### U RTPCR #### [facility] [address] [place] [address] Dr. Dwight Waters Log10 BKV DNA Plasma Normal [facility] Comment on above: Performed By: #### U RTPCR #### [facility] [address] [place] [address] Dr. Dwight Waters ALBUMINon 08-14-2022 Albumin [Mass/Vol] 4.2 g/dL Normal 3.4-5.0 [facility] Comment on above: Performed By: #### F [id number] #### [facility] [address] [place] [address] Dr. Dwight Waters ALKALINE PHOSPHAon ALP [Catalytic activity/Vol] 92 U/L Normal 46-116 [facility] Comment on above: Performed By: #### C BC #### [facility] [address] [place] [address] Dr. Dwight Waters BILIRUBIN CONJUGATED (DIRECT )on 08-14-2022 BILI, CONJUGATED 0.3 mg/dL Critically high 0.0-0.2 [facility] Comment on above: Performed By: #### F [id number] #### [facility] [address] [place] [address] Dr. Dwight Waters BILIRUBIN TOTALon 08-14-2022 Bilirubin [Mass/Vol] 1.5 mg/dL Critically high 0.2-1.0 [facility] Comment on above: Performed By: #### F [id number] #### [facility] [address] [place] [address] Dr. Dwight Waters BUNon 08-14-2022 Urea nitrogen [Mass/Vol] 11.0 mg/dL Normal 7.0-18.0 [facility] Comment on above: Performed By: #### C BC #### [facility] [address] [place] [address] Dr. Dwight Waters CALCIUMon 08-14-2022 Calcium [Mass/Vol] 9.4 mg/dL Normal 8.5-10.1 [facility] Comment on above: Performed By: #### F [id number] #### [facility] [address] [place] [address] Dr. Dwight Waters CBC AUTO DIFFon 08-14-2022 BASO # 0.0 103/ul Normal 0.0-0.1 [facility] Comment on above: Performed By: #### C MP #### [facility] [address] [place] [address] Dr. Dwight Waters Basophils/100 WBC (Bld) 0.5 % Normal 0.2-2.0 [facility] Comment on above: Performed By: #### C MP #### [facility] [address] [place] [address] Dr. Dwight Waters EO # 0.2 103/ul Normal 0.0-0.7 [facility] Comment on above: Performed By: #### C MP #### [facility] [address] [place] [address] Dr. Dwight Waters Eosinophils/100 WBC (Bld) 2.6 % Normal 0.9-7.0 [facility] Comment on above: Performed By: #### C MP #### [facility] [address] [place] [address] Dr. Dwight Waters Erythrocyte distribution width (RBC) [Ratio] 13.1 % Normal 11.0-15.0 [facility] Comment on above: Performed By: #### C MP #### [facility] [address] [place] [address] Dr. Dwight Waters Hematocrit (Bld) [Volume fraction] 47.0 % Normal 42.0-54.0 [facility] Comment on above: Performed By: #### C MP #### [facility] [address] [place] [address] Dr. Dwight Waters Hemoglobin (Bld) [Mass/Vol] 15.3 g/dL Normal 14.0-18.0 [facility] Comment on above: Performed By: #### C MP #### [facility] [address] [place] [address] Dr. Dwight Waters IG # 0.01 10e3/ul Normal 0.00-0.03 [facility] Comment on above: Performed By: #### C MP #### [facility] [address] [place] [address] Dr. Dwight Waters IG % 0.1 % Normal 0.0-0.5 [facility] Comment on above: Performed By: #### C MP #### [facility] [address] [place] [address] Dr. Dwight Waters LYMPH # 2.3 103/ul Normal 1.2-3.8 [facility] Comment on above: Performed By: #### C MP #### [facility] [address] [place] [address] Dr. Dwight Waters Lymphocytes/100 WBC (Bld) 29.8 % Normal 20.5-60.0 [facility] Comment on above: Performed By: #### C MP #### [facility] [address] [place] [address] Dr. Dwight Waters MANUAL DIFF REQ NO Normal [facility] Comment on above: Performed By: #### C MP #### [facility] [address] [place] [address] Dr. Dwight Waters MCH (RBC) [Entitic mass] 28.2 pg Normal 25.9-34.0 [facility] Comment on above: Performed By: #### C MP #### [facility] [address] [place] [address] Dr. Dwight Waters MCHC (RBC) [Mass/Vol] 32.6 g/dL Normal 29.9-35.2 [facility] Comment on above: Performed By: #### C MP #### [facility] [address] [place] [address] Dr. Dwight Waters MCV (RBC) [Entitic vol] 86.7 fL Normal 80.0-94.0 [facility] Comment on above: Performed By: #### C MP #### [facility] [address] [place] [address] Dr. Dwight Waters MONO # 0.7 103/ul Normal 0.3-0.8 [facility] Comment on above: Performed By: #### C MP #### [facility] [address] [place] [address] Dr. Dwight Waters Monocytes/100 WBC (Bld) 8.5 % Normal 1.7-12.0 [facility] Comment on above: Performed By: #### C MP #### [facility] [address] [place] [address] Dr. Dwight Waters NEUT # 4.5 103/ul Normal 1.4-6.5 [facility] Comment on above: Performed By: #### C MP #### [facility] [address] [place] [address] Dr. Dwight Waters Neutrophils/100 WBC (Bld) 58.5 % Normal 43.0-75.0 [facility] Comment on above: Performed By: #### C MP #### [facility] [address] [place] [address] Dr. Dwight Waters Platelet mean volume (Bld) [Entitic vol] 9.7 fL Normal 9.5-13.5 [facility] Comment on above: Performed By: #### C MP #### [facility] [address] [place] [address] Dr. Dwight Waters PLT 266 103/ul Normal 150-450 [facility] Comment on above: Performed By: #### C MP #### [facility] [address] [place] [address] Dr. Dwight Waters RBC 5.42 106/ul Normal 4.70-6.10 [facility] Comment on above: Performed By: #### C MP #### [facility] [address] [place] [address] Dr. Dwight Waters WBC 7.6 103/ul Normal 4.0-11.0 [facility] Comment on above: Performed By: #### C MP #### [facility] [address] [place] [address] Dr. Dwight Waters CHLORIDEon 08-14-2022 Chloride [Moles/Vol] 104 mmol/L Normal 98-107 [facility] Comment on above: Performed By: #### C BC #### [facility] [address] [place] [address] Dr. Dwight Waters CO2on 08-14-2022 CO2 [Moles/Vol] 27.9 mmol/L Normal 21.0-32.0 [facility] Comment on above: Performed By: #### C BC #### [facility] [address] [place] [address] Dr. Dwight Waters CREATININEon 08-14-2022 Creatinine [Mass/Vol] 1.08 mg/dL Normal 0.70-1.30 [facility] Comment on above: Performed By: #### C BC #### [facility] [address] [place] [address] Dr. Dwight Waters EGFR-AF SALVADOREAN >60 Normal >=60 [facility] Comment on above: Performed By: #### C BC #### [facility] [address] [place] [address] Dr. Dwight Waters EGFR-NON AF SALVADOREAN >60 Normal >=60 [facility] Comment on above: Performed By: #### C BC #### [facility] [address] [place] [address] Dr. Dwight Waters GGTon 08-14-2022 Gamma glutamyl transferase [Catalytic activity/Vol] 24 U/L Normal 15-85 [facility] Comment on above: Performed By: #### F [id number] #### [facility] [address] [place] [address] Dr. Dwight Waters GLUCOSE BLOODon 08-14-2022 Glucose [Mass/Vol] 111 mg/dL Critically high 74-106 [facility] Comment on above: Performed By: #### C BC #### [facility] [address] [place] [address] Dr. Dwight Waters MAGNESIUMon 08-14-2022 Magnesium [Mass/Vol] 1.4 mg/dL Critically low 1.8-2.4 [facility] Comment on above: Performed By: #### C BC #### [facility] [address] [place] [address] Dr. Dwight Waters NAon 08-14-2022 Sodium [Moles/Vol] 140 mmol/L Normal 136-145 [facility] Comment on above: Performed By: #### F [id number] #### [facility] [address] [place] [address] Dr. Dwight Waters PHOSPHORUSon 08-14-2022 Phosphate [Mass/Vol] 3.1 mg/dL Normal 2.6-4.7 [facility] Comment on above: Performed By: #### C BC #### [facility] [address] [place] [address] Dr. Dwight Waters POTASSIUMon 08-14-2022 Potassium [Moles/Vol] 3.5 mmol/L Normal 3.5-5.1 [facility] Comment on above: Performed By: #### C BC #### [facility] [address] [place] [address] Dr. Dwight Waters SGOTon 08-14-2022 AST [Catalytic activity/Vol] 17 U/L Normal 15-37 [facility] Comment on above: Performed By: #### F [id number] #### [facility] [address] [place] [address] Dr. Dwight Waters SGPTon 08-14-2022 ALT [Catalytic activity/Vol] 22 U/L Normal 16-63 [facility] Comment on above: Performed By: #### F [id number] #### [facility] [address] [place] [address] Dr. Dwight Waters URINE T PROTEIN CREAT RATIOo n 08-14-2022 Protein (U) [Mass/Vol] 10.7 mg/dL Normal <=12.0 [facility] Comment on above: Performed By: #### F [id number] #### [facility] [address] [place] [address] Dr. Dwight Waters UR PROT CREAT RAT 0.10 Normal [facility] Comment on above: Performed By: #### F [id number] #### [facility] [address] [place] [address] Dr. Dwight Waters URINE CREAT 104.28 mg/dL Normal 20.00-300.00 [facility] Comment on above: Performed By: #### F [id number] #### [facility] [address] [place] [address] Dr. Dwight Waters NEPHROSTOMY TUBE REMOVALon 0 [...] Assisting physician present for entire procedure: yes [facility] Radiology Study observation (narrative) [facility] FK506 (TACROLIMUS) WHOLE BLO ODon 07-06-2022 Tacrolimus (FK506), Blood 9.5 ng/mL Normal 2.0-20.0 [facility] Comment on above: Result Comment: Trou gh (immediately following transplant) 15.0 . Trough (steady state, 2 weeks or more after transplant): 3.0 - 8.0 . Performed by LC-MS/MS technology. Performed By: #### C MP #### [facility] [address] [place] [address] Dr. Dwight Waters ALBUMINon 07-03-2022 Albumin [Mass/Vol] 3.7 g/dL Normal 3.4-5.0 [facility] Comment on above: Performed By: #### U RTPCR #### [facility] [address] [place] [address] Dr. Dwight Waters ALKALINE PHOSPHAon ALP [Catalytic activity/Vol] 76 U/L Normal 46-116 [facility] Comment on above: Performed By: #### U RTPCR #### [facility] [address] [place] [address] Dr. Dwight Waters BILIRUBIN CONJUGATED (DIRECT )on 07-03-2022 BILI, CONJUGATED 0.3 mg/dL Critically high 0.0-0.2 [facility] Comment on above: Performed By: #### C BC #### [facility] [address] [place] [address] Dr. Dwight Waters BILIRUBIN TOTALon 07-03-2022 Bilirubin [Mass/Vol] 1.4 mg/dL Critically high 0.2-1.0 [facility] Comment on above: Performed By: #### C BC #### [facility] [address] [place] [address] Dr. Dwight Waters BUNon 07-03-2022 Urea nitrogen [Mass/Vol] 15.0 mg/dL Normal 7.0-18.0 [facility] Comment on above: Performed By: #### C BC #### [facility] [address] [place] [address] Dr. Dwight Waters CALCIUMon 07-03-2022 Calcium [Mass/Vol] 9.4 mg/dL Normal 8.5-10.1 [facility] Comment on above: Performed By: #### U RTPCR #### [facility] [address] [place] [address] Dr. Dwight Waters CBC AUTO DIFFon 07-03-2022 BASO # 0.0 103/ul Normal 0.0-0.1 [facility] Comment on above: Performed By: #### U RTPCR #### [facility] [address] [place] [address] Dr. Dwight Waters Basophils/100 WBC (Bld) 0.6 % Normal 0.2-2.0 [facility] Comment on above: Performed By: #### U RTPCR #### [facility] [address] [place] [address] Dr. Dwight Waters EO # 0.2 103/ul Normal 0.0-0.7 [facility] Comment on above: Performed By: #### U RTPCR #### [facility] [address] [place] [address] Dr. Dwight Waters Eosinophils/100 WBC (Bld) 3.5 % Normal 0.9-7.0 [facility] Comment on above: Performed By: #### U RTPCR #### [facility] [address] [place] [address] Dr. Dwight Waters Erythrocyte distribution width (RBC) [Ratio] 12.9 % Normal 11.0-15.0 [facility] Comment on above: Performed By: #### U RTPCR #### [facility] [address] [place] [address] Dr. Dwight Waters Hematocrit (Bld) [Volume fraction] 44.2 % Normal 42.0-54.0 [facility] Comment on above: Performed By: #### U RTPCR #### [facility] [address] [place] [address] Dr. Dwight Waters Hemoglobin (Bld) [Mass/Vol] 14.6 g/dL Normal 14.0-18.0 [facility] Comment on above: Performed By: #### U RTPCR #### [facility] [address] [place] [address] Dr. Dwight Waters IG # 0.02 10e3/ul Normal 0.00-0.03 [facility] Comment on above: Performed By: #### U RTPCR #### [facility] [address] [place] [address] Dr. Dwight Waters IG % 0.3 % Normal 0.0-0.5 [facility] Comment on above: Performed By: #### U RTPCR #### [facility] [address] [place] [address] Dr. Dwight Waters LYMPH # 2.0 103/ul Normal 1.2-3.8 [facility] Comment on above: Performed By: #### U RTPCR #### [facility] [address] [place] [address] Dr. Dwight Waters Lymphocytes/100 WBC (Bld) 28.4 % Normal 20.5-60.0 [facility] Comment on above: Performed By: #### U RTPCR #### [facility] [address] [place] [address] Dr. Dwight Waters MANUAL DIFF REQ NO Normal [facility] Comment on above: Performed By: #### U RTPCR #### [facility] [address] [place] [address] Dr. Dwight Waters MCH (RBC) [Entitic mass] 28.6 pg Normal 25.9-34.0 [facility] Comment on above: Performed By: #### U RTPCR #### [facility] [address] [place] [address] Dr. Dwight Waters MCHC (RBC) [Mass/Vol] 33.0 g/dL Normal 29.9-35.2 [facility] Comment on above: Performed By: #### U RTPCR #### [facility] [address] [place] [address] Dr. Dwight Waters MCV (RBC) [Entitic vol] 86.7 fL Normal 80.0-94.0 [facility] Comment on above: Performed By: #### U RTPCR #### [facility] [address] [place] [address] Dr. Dwight Waters MONO # 0.6 103/ul Normal 0.3-0.8 [facility] Comment on above: Performed By: #### U RTPCR #### [facility] [address] [place] [address] Dr. Dwight Waters Monocytes/100 WBC (Bld) 9.1 % Normal 1.7-12.0 [facility] Comment on above: Performed By: #### U RTPCR #### [facility] [address] [place] [address] Dr. Dwight Waters NEUT # 4.0 103/ul Normal 1.4-6.5 [facility] Comment on above: Performed By: #### U RTPCR #### [facility] [address] [place] [address] Dr. Dwight Waters Neutrophils/100 WBC (Bld) 58.1 % Normal 43.0-75.0 [facility] Comment on above: Performed By: #### U RTPCR #### [facility] [address] [place] [address] Dr. Dwight Waters Platelet mean volume (Bld) [Entitic vol] 9.5 fL Normal 9.5-13.5 [facility] Comment on above: Performed By: #### U RTPCR #### [facility] [address] [place] [address] Dr. Dwight Waters PLT 292 103/ul Normal 150-450 [facility] Comment on above: Performed By: #### U RTPCR #### [facility] [address] [place] [address] Dr. Dwight Waters RBC 5.10 106/ul Normal 4.70-6.10 [facility] Comment on above: Performed By: #### U RTPCR #### [facility] [address] [place] [address] Dr. Dwight Waters WBC 6.9 103/ul Normal 4.0-11.0 [facility] Comment on above: Performed By: #### U RTPCR #### [facility] [address] [place] [address] Dr. Dwight Waters CHLORIDEon 07-03-2022 Chloride [Moles/Vol] 108 mmol/L Critically high 98-107 [facility] Comment on above: Performed By: #### C BC #### [facility] [address] [place] [address] Dr. Dwight Waters CO2on 07-03-2022 CO2 [Moles/Vol] 25.2 mmol/L Normal 21.0-32.0 [facility] Comment on above: Performed By: #### C BC #### [facility] [address] [place] [address] Dr. Dwight Waters CREATININEon 07-03-2022 Creatinine [Mass/Vol] 1.03 mg/dL Normal 0.70-1.30 [facility] Comment on above: Performed By: #### U RTPCR #### [facility] [address] [place] [address] Dr. Dwight Waters EGFR-AF SALVADOREAN >60 Normal >=60 [facility] Comment on above: Performed By: #### U RTPCR #### [facility] [address] [place] [address] Dr. Dwight Waters EGFR-NON AF SALVADOREAN >60 Normal >=60 [facility] Comment on above: Performed By: #### U RTPCR #### [facility] [address] [place] [address] Dr. Dwight Waters GGTon 07-03-2022 Gamma glutamyl transferase [Catalytic activity/Vol] 31 U/L Normal 15-85 [facility] Comment on above: Performed By: #### U RTPCR #### [facility] [address] [place] [address] Dr. Dwight Waters GLUCOSE BLOODon 07-03-2022 Glucose [Mass/Vol] 119 mg/dL Critically high 74-106 [facility] Comment on above: Performed By: #### U RTPCR #### [facility] [address] [id number] Dr. Dwight Waters MAGNESIUMon 07-03-2022 Magnesium [Mass/Vol] 1.4 mg/dL Critically low 1.8-2.4 [facility] Comment on above: Performed By: #### C BC #### [facility] [address] [place] [address] Dr. Dwight Waters NAon 07-03-2022 Sodium [Moles/Vol] 142 mmol/L Normal 136-145 [facility] Comment on above: Performed By: #### C MP #### [facility] [address] [place] [address] Dr. Dwight Waters PHOSPHORUSon 07-03-2022 Phosphate [Mass/Vol] 3.4 mg/dL Normal 2.6-4.7 [facility] Comment on above: Performed By: #### C BC #### [facility] [address] [place] [address] Dr. Dwight Waters POTASSIUMon 07-03-2022 Potassium [Moles/Vol] 4.1 mmol/L Normal 3.5-5.1 [facility] Comment on above: Performed By: #### C BC #### [facility] [address] [place] [address] Dr. Dwight OLVERAOTon 07-03-2022 AST [Catalytic activity/Vol] 14 U/L Critically low 15-37 [facility] Comment on above: Performed By: #### C BC #### [facility] [address] [place] [address] Dr. Dwight Waters SGPTon 07-03-2022 ALT [Catalytic activity/Vol] 25 U/L Normal 16-63 [facility] Comment on above: Performed By: #### C BC #### [facility] [address] [place] [address] Dr. Dwight Waters US KIDNEYSon 07-03-2022 US KIDNEYS Ultrasound kidneys, bilateral HISTORY: Transplant of kidney , pain in the right lower quadrant COMPARISON: None. TECHNIQUE: Transabdominal ultrasound imaging of both kidneys was performed. FINDINGS: The [place] kidneys are diffusely echogenic and atrophic with cortical thinning. The right kidney measures 8.3 x 3.5 x 4.07 m and the left measures 9.9 x 3.8 x 3.6 cm. No hydronephrosis of the [place] kidneys. There is a renal transplant in [...] stone involving the renal transplant. 2. Atrophic [place] kidneys. 3. Normal bladder. Electronically authenticated by: ARCELIA PIZARRO Date: 2022-07-03 17:22 Normal [facility] CT Abdomen and Pelvis WO con traston 06-27-2022 IMPRESSION: 1. Both [place] kidneys are atrophic with improvement in right-sided [...] Adrenals: Adrenal glands are unremarkable. Kidneys: Both [place] kidneys are atrophic. Interval improvement in right [place] kidney hydronephrosis since May 15, 2022. Status [...] Adrenals: Adrenal glands are unremarkable. Kidneys: Both [place] kidneys are atrophic. Interval improvement in right [place] kidney hydronephrosis since May 15, 2022. Status [...] aggressive osseous lesions. IMPRESSION IMPRESSION: 1. Both [place] kidneys are atrophic with improvement in right-sided hydronephrosis since May 15, 2022. 2. 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 No hydronephrosis. No discrete perinephric collection. 3. Partially imaged postsurgical changes related to prior liver transplant. 4. The bladder is decompressed, limiting evaluation. [facility]ative[facility] WO con trastOrdered By: Gera Lu on 06-27-2022 [facility] Work Phone: CBC AUTO DIFFon 06-18-2022 BASO # 0.0 103/ul Normal 0.0-0.1 [facility] Comment on above: Performed By: #### U RTPCR #### [facility] [address] [place] [address] Dr. Dwight Waters Basophils/100 WBC (Bld) 0.5 % Normal 0.2-2.0 [facility] Comment on above: Performed By: #### U RTPCR #### [facility] [address] [place] [address] Dr. Dwight Waters EO # 0.2 103/ul Normal 0.0-0.7 [facility] Comment on above: Performed By: #### U RTPCR #### [facility] [address] [place] [address] Dr. Dwight Waters Eosinophils/100 WBC (Bld) 2.3 % Normal 0.9-7.0 [facility] Comment on above: Performed By: #### U RTPCR #### [facility] [address] [place] [address] Dr. Dwight Waters Erythrocyte distribution width (RBC) [Ratio] 12.9 % Normal 11.0-15.0 [facility] Comment on above: Performed By: #### U RTPCR #### [facility] [address] [place] [address] Dr. Dwight Waters Hematocrit (Bld) [Volume fraction] 41.2 % Critically low 42.0-54.0 [facility] Comment on above: Performed By: #### U RTPCR #### [facility] [address] [place] [address] Dr. Dwight Watres Hemoglobin (Bld) [Mass/Vol] 13.3 g/dL Critically low 14.0-18.0 [facility] Comment on above: Performed By: #### U RTPCR #### [facility] [address] [place] [address] Dr. Dwight Waters IG # 0.04 10e3/ul Critically high 0.00-0.03 [facility] Comment on above: Performed By: #### U RTPCR #### [facility] [address] [place] [address] Dr. Dwight Waters IG % 0.5 % Normal 0.0-0.5 [facility] Comment on above: Performed By: #### U RTPCR #### [facility] [address] [place] [address] Dr. Dwight Watesr LYMPH # 2.0 103/ul Normal 1.2-3.8 [facility] Comment on above: Performed By: #### U RTPCR #### [facility] [address] [place] [address] Dr. Dwight Waters Lymphocytes/100 WBC (Bld) 22.9 % Normal 20.5-60.0 [facility] Comment on above: Performed By: #### U RTPCR #### [facility] [address] [place] [address] Dr. Dwight Waters MANUAL DIFF REQ NO Normal [facility] Comment on above: Performed By: #### U RTPCR #### [facility] [address] [place] [address] Dr. Dwight Waters MCH (RBC) [Entitic mass] 28.7 pg Normal 25.9-34.0 [facility] Comment on above: Performed By: #### U RTPCR #### [facility] [address] [place] [address] Dr. Dwight Waters MCHC (RBC) [Mass/Vol] 32.3 g/dL Normal 29.9-35.2 [facility] Comment on above: Performed By: #### U RTPCR #### [facility] [address] [place] [address] Dr. Dwight Waters MCV (RBC) [Entitic vol] 88.8 fL Normal 80.0-94.0 [facility] Comment on above: Performed By: #### U RTPCR #### [facility] [address] [place] [address] Dr. Dwight Waters MONO # 0.8 103/ul Normal 0.3-0.8 [facility] Comment on above: Performed By: #### U RTPCR #### [facility] [address] [place] [address] Dr. Dwight Waters Monocytes/100 WBC (Bld) 9.7 % Normal 1.7-12.0 [facility] Comment on above: Performed By: #### U RTPCR #### [facility] [address] [place] [address] Dr. Dwight Waters NEUT # 5.6 103/ul Normal 1.4-6.5 [facility] Comment on above: Performed By: #### U RTPCR #### [facility] [address] [place] [address] Dr. Dwight Waters Neutrophils/100 WBC (Bld) 64.1 % Normal 43.0-75.0 [facility] Comment on above: Performed By: #### U RTPCR #### [facility] [address] [place] [address] Dr. Dwight Waters Platelet mean volume (Bld) [Entitic vol] 10.0 fL Normal 9.5-13.5 [facility] Comment on above: Performed By: #### U RTPCR #### [facility] [address] [address] [address] Dwight Waters PLT 270 103/ul Normal 150-450 [facility] Comment on above: Performed By: #### U RTPCR #### [facility] [address] [address] [address] Dwight Waters RBC 4.64 106/ul Critically low 4.70-6.10 [facility] Comment on above: Performed By: #### U RTPCR #### [facility] [address] [address] [address] Dwight Waters WBC 8.7 103/ul Normal 4.0-11.0 [facility] Comment on above: Performed By: #### U RTPCR #### [facility] [address] [place] [address] Dr. Dwight Waters CULTURE URINEon 06-18-2022 CULTURE URINE Culture Observations : NO GROWTH. Normal [facility] Comment on above: Performed By: #### U RTPCR #### [facility] [address] [place] [address] Dr. Dwight Waters Covid-19 PCR (CVDTBH)on 05-31 SARS-CoV-2 (COVID-19) RNA ESTELITA+probe Ql (Unsp spec) Not detected Normal NOT DETECTED [facility] Comment on above: Result Comment: When [...] for this test is supported by the [place] [employer] and [employer] Service's declaration that [...] used). Performed By: #### C BC #### [facility] [address] [place] [address] Dr. Dwihgt Waters ER URINE PROFILEon 2 Bilirubin Ql (U) Negative Normal NEGATIVE [facility] Comment on above: Performed By: #### U RTPCR #### [facility] [address] [place] [address] Dr. Dwight Waters Clarity (U) CLEAR Normal CLEAR [facility] Comment on above: Performed By: #### U RTPCR #### [facility] [address] [place] [address] Dr. Dwight Waters Color (U) YELLOW Normal YELLOW [facility] Comment on above: Performed By: #### U RTPCR #### [facility] [address] [place] [address] Dr. Dwight Waters ERUAHD A micrscopic examina tion will be performed if indicated. Normal [facility] Comment on above: Performed By: #### U RTPCR #### [facility] [address] [place] [address] Dr. Dwight Waters Glucose Ql (U) Negative Normal NEGATIVE [facility] Comment on above: Performed By: #### U RTPCR #### [facility] [address] [place] [address] Dr. Dwight Waters Hemoglobin Ql (U) LARGE Abnormal NEGATIVE [facility] Comment on above: Performed By: #### U RTPCR #### [facility] [address] [place] [address] Dr. Dwight Waters Ketones Ql (U) Negative Normal NEGATIVE [facility] Comment on above: Performed By: #### U RTPCR #### [facility] [address] [place] [address] Dr. Dwight Waters LEUKOCYTES TRACE Abnormal NEGATIVE [facility] Comment on above: Performed By: #### U RTPCR #### [facility] [address] [place] [address] Dr. Dwight Waters Nitrite Ql (U) Negative Normal NEGATIVE [facility] Comment on above: Performed By: #### U RTPCR #### [facility] [address] [place] [address] Dr. Dwight Waters pH (U) 6.0 [pH] Normal 5-9 [facility] Comment on above: Performed By: #### U RTPCR #### [facility] [address] [place] [address] Dr. Dwight Waters Protein (U) [Mass/Vol] 30 mg/dL Abnormal NEGATIVE/ TRACE [facility] Comment on above: Performed By: #### U RTPCR #### [facility] [address] [place] [address] Dr. Dwight Waters SPEC GRAVITY >=1.030 Abnormal 1.005-<=1.02 5 [facility] Comment on above: Performed By: #### U RTPCR #### [facility] [address] [place] [address] Dr. Dwight Waters UR MICRO IND INDICATED Normal [facility] Comment on above: Performed By: #### U RTPCR #### [facility] [address] [place] [address] Dr. Dwight Waters Urobilinogen Qn (U) 0.2 {Alyssa'U}/dL Normal 0.2 - 1. 0 [facility] Comment on above: Performed By: #### U RTPCR #### [facility] [address] [place] [address] Dr. Dwight Waters PROF 14(COMP METB)on 022 Albumin [Mass/Vol] 3.7 g/dL Normal 3.4-5.0 [facility] Comment on above: Performed By: #### C MP #### [facility] [address] [place] [address] Dr. Dwight Waters Albumin/Globulin [Mass ratio] 0.9 {ratio} Normal [facility] Comment on above: Performed By: #### C MP #### [facility] [address] [place] [address] Dr. Dwight Waters ALP [Catalytic activity/Vol] 80 U/L Normal 46-116 [facility] Comment on above: Performed By: #### C MP #### [facility] [address] [place] [address] Dr. Dwight Waters ALT [Catalytic activity/Vol] 24 U/L Normal 16-63 [facility] Comment on above: Performed By: #### C MP #### [facility] [address] [place] [address] Dr. Dwight Waters Anion gap [Moles/Vol] 12.9 mmol/L Normal [facility] Comment on above: Performed By: #### C MP #### [facility] [address] [address] [address] Dwight Waters AST [Catalytic activity/Vol] 17 U/L Normal 15-37 [facility] Comment on above: Performed By: #### C MP #### [facility] [address] [place] [address] Dr. Dwight Waters Bilirubin [Mass/Vol] 0.8 mg/dL Normal 0.2-1.0 [facility] Comment on above: Performed By: #### C MP #### [facility] [address] [place] [address] Dr. Dwight Waters Calcium [Mass/Vol] 9.4 mg/dL Normal 8.5-10.1 [facility] Comment on above: Performed By: #### C MP #### [facility] [address] [place] [address] Dr. Dwight Waters Chloride [Moles/Vol] 106 mmol/L Normal 98-107 [facility] Comment on above: Performed By: #### C MP #### [facility] [address] [place] [address] Dr. Dwight Waters CO2 [Moles/Vol] 25.3 mmol/L Normal 21.0-32.0 [facility] Comment on above: Performed By: #### C MP #### [facility] [address] [place] [address] Dr. Dwight Waters Creatinine [Mass/Vol] 1.29 mg/dL Normal 0.70-1.30 [facility] Comment on above: Performed By: #### C MP #### [facility] [address] [place] [address] Dr. Dwight Waters EGFR-AF SALVADOREAN >60 Normal >=60 [facility] Comment on above: Performed By: #### C MP #### [facility] [address] [address] [address] Dwight Waters EGFR-NON AF [place]OREAN 59 mL/min/1.73m2 Critically low >=60 [facility] Comment on above: Performed By: #### C MP #### [facility] [address] [address] [address] Dwight Waters Globulin (S) [Mass/Vol] 4.2 g/dL Normal [facility] Comment on above: Performed By: #### C MP #### [facility] [address] [address] [address] Dwight Waters Glucose [Mass/Vol] 106 mg/dL Normal 74-106 [facility] Comment on above: Performed By: #### C MP #### [facility] [address] [address] [address] Dwight Waters Potassium [Moles/Vol] 4.2 mmol/L Normal 3.5-5.1 [facility] Comment on above: Performed By: #### C MP #### [facility] [address] [address] [address] Dwight Waters Protein [Mass/Vol] 7.9 g/dL Normal 6.4-8.2 [facility] Comment on above: Performed By: #### C MP #### [facility] [address] [address] [address] Dwight Waters Sodium [Moles/Vol] 140 mmol/L Normal 136-145 [facility] Comment on above: Performed By: #### C MP #### [facility] [address] [address] [address] Dwight Waters Urea nitrogen [Mass/Vol] 22.0 mg/dL Critically high 7.0-18.0 [facility] Comment on above: Performed By: #### C MP #### [facility] [address] [address] [address] Dwight Waters Urea nitrogen/Creatinine [Mass ratio] 17.1 mg/mg Normal [facility] Comment on above: Performed By: #### C MP #### [facility] [address] [place] [address] Dr. Dwight Waters URINE MICROSCOPIC ONLYon BACTERIA TRACE Abnormal NONE SEEN [facility] Comment on above: Performed By: #### U RTPCR #### [facility] [address] [place] [address] Dr. Dwight Waters Bacteria identified Cx Nom (U) INDICATED Normal [facility] Comment on above: Performed By: #### U RTPCR #### [facility] [address] [place] [address] Dr. Dwight Waters CAST NONE SEEN Normal NONE SEEN [facility] Comment on above: Performed By: #### U RTPCR #### [facility] [address] [place] [address] Dr. Dwight Waters Crystals LM Nom (Urine sed) NONE SEEN Normal NONE SEEN [facility] Comment on above: Performed By: #### U RTPCR #### [facility] [address] [place] [address] Dr. Dwight Waters Epithelial cells LM Ql (Urine sed) NONE SEEN Normal NONE SEEN /RARE [facility] Comment on above: Performed By: #### U RTPCR #### [facility] [address] [place] [address] Dr. Dwight Waters MUCOUS NONE SEEN Normal NONE SEEN [facility] Comment on above: Performed By: #### U RTPCR #### [facility] [address] [place] [address] Dr. Dwight Waters RBC 5-10 Abnormal 0-2 [facility] Comment on above: Performed By: #### U RTPCR #### [facility] [address] [place] [address] Dr. Dwight Waters WBC 10-20 Abnormal NONE SEEN [facility] Comment on above: Performed By: #### U RTPCR #### [facility] [address] [place] [address] Dr. Dwight Waters ALLOSCREEN RECIPIENT (POST T X PRA)on 06-13-2022 AB SPECIFICITY CLASS COMMENT Antibody Specificity testing performed by [employer]. cPRA calculation based on identification of HLA antibody specificities at MFI >2000 and/or presence of CREG antibodies. [facility] Comment on above: Some of the reagents used for testing in the Clinical Histocompatibility Laboratory have yet to be approved by the FDA. Our certification by CLIA to perform high complexity tests allows us to use these reagents in the context of a stringent QC program, and obviates the need for FDA approval.Testing performed by the [facility] Clinical Histocompatibility Laboratory. [facility] number: [id number]. CLIA number: [id number], Director: Carlito Merchant, PhD, D([facility]). ANTIBODY SPECIFICITY INTERPRETATION Detected [facility] CLASS I SPECIFICITIES Not detected [facility] CLASS II SPECIFICITIES Not detected [facility] HLA Ab (S) 0 % 0 [facility] EXTRA MICROon 06-13-2022 [facility] URINE CULTUREOrdered By: Jah Upton on 06-13-2022 Bacteria identified Cx Nom (Unsp spec) Growth [facility] Bacteria identified Cx Nom (Unsp spec) 10,000-50,000 CFU/mL Mixed skin shimon [facility] Comment on above: Multiple bacterial m orphotypes present. Suggest appropriate recollection if clinically indicated. [facility] CBC,PLATELETSon 06-12-2022 Erythrocyte distribution width (RBC) [Ratio] 13.0 % 10.9 - 14.3 % [facility] Hematocrit (Bld) [Volume fraction] 43.2 % 39.6 - 48.8 % [facility] Hemoglobin (Bld) [Mass/Vol] 13.9 g/dL 13.4 - 16.8 g/dL [facility] Interpretation and review of laboratory results Normal [facility] MCH (RBC) [Entitic mass] 28.7 pg 26.1 - 33.[address] [facility] MCHC (RBC) [Mass/Vol] 32.2 g/dL 31.9 - 36.5 g/dL [facility] MCV (RBC) [Entitic vol] 89.1 fL 79.0 - 94.[address] [facility] Platelet mean volume (Bld) [Entitic vol] 10.5 fL 8.7 - 12.[address] [facility] Platelets (Bld) [#/Vol] 269 10*3/uL 146 - 337 K/uL [facility] RBC (Bld) [#/Vol] 4.85 10*6/uL [facility] WBC (Bld) [#/Vol] 7.68 10*3/uL 3.73 - 10. 10 K/uL [facility] [place] CHEM 7 (LYTES,BUN,CREA,GLUC) on 06-12-2022 Anion gap [Moles/Vol] 14 mmol/L 7 - 17 mmol/L [facility] Chloride [Moles/Vol] 106 mmol/L 98 - 10 8 mmol/L [facility] CO2 [Moles/Vol] 25 mmol/L 21 - 31 mmol/L [facility] Creatinine [Mass/Vol] 1.26 mg/dL 0.70 - 1.30 mg/dL [facility] GFR/1.73 sq M.predicted CKD-EPI (S/P/Bld) [Vol rate/Area] 69 >=60 mL/min/1.73m 2 [facility] Comment on above: Reported eGFR is bas ed on the CKD-EPI 2020 equation using creatinine, age, and sex. Glucose [Mass/Vol] 83 mg/dL 70 - 99 mg/dL [facility] Osmolality Calc [Osmolality] [facility] Potassium [Moles/Vol] 3.8 mmol/L 3.5 - 5.0 mmol/L [facility] Sodium [Moles/Vol] 141 mmol/L 135 - 145 mmol/L [facility] Urea nitrogen [Mass/Vol] 18 mg/dL 7 - 25 mg/dL [facility] Urea nitrogen/Creatinine [Mass ratio] 14 mg/mg [facility] GGTon 06-12-2022 Gamma glutamyl transferase [Catalytic activity/Vol] 20 U/L 8 - 64 U/L [facility] HEMOGLOBIN [id number] By: [employer] on 06-12-2022 Average glucose Estimated from glycated hemoglobin (Bld) [Mass/Vol] 126 mg/dL [facility] HbA1c (Bld) [Mass fraction] 6.0 % High 4.7 - 5.6 % [facility] Interpretation and review of laboratory results Abnormal [facility] [place] HEPATIC FUNCTION PANELon Albumin [Mass/Vol] 4.3 g/dL 3.5 - 5.0 g/dL [facility] ALP [Catalytic activity/Vol] 78 U/L 32 - 126 U/L [facility] ALT [Catalytic activity/Vol] 12 U/L 10 - 52 U/L [facility] AST [Catalytic activity/Vol] 16 U/L 10 - 39 U/L [facility] Bilirubin [Mass/Vol] 1.0 mg/dL <1.5 [facility] Bilirubin.direct [Mass/Vol] 0.2 mg/dL <0.3 [facility] Protein [Mass/Vol] 7.5 g/dL 6.4 - 8.3 g/dL [facility] No Panel Informationon 06-12 Interpretation and review of laboratory results Normal [facility] [place] PTH INTACTOrdered By: Marli Lizarraga on 06-12-2022 Interpretation and review of laboratory results Abnormal [facility] Parathyrin.intact [Mass/Vol] 79.7 pg/mL High 14.0 - 72.0 pg/mL [facility] [place] URINALYSIS REFLEX TO CULTURE PERFORMABLEon 06-12-2022 Appearance (U) Clear Clear [facility] Bacteria LM Ql (Urine sed) ABSENT ABSENT [facility] Color (U) Yellow Yellow [facility] Epithelial cells.squamous LM Ql (Urine sed) 1/hpf = 1+ 1/hpf = 1+, 2-5/hpf = 2+, 0/hpf = 0+, ABSENT [facility] Glucose Test strip (U) [Mass/Vol] Negative Negative [facility] Interpretation and review of laboratory results Abnormal [facility] Ketones (U) [Mass/Vol] Trace Abnormal Negative [facility] Leukocyte esterase Test strip Ql (U) Small Abnormal Negative [facility] Nitrite Ql (U) Negative Negative [facility] pH (U) 5.5 [pH] 5.0 - 7.0 [facility] Protein (U) [Mass/Vol] 30 mg/dL Abnormal Negative [facility] RBC (U) [#/Vol] Trace Abnormal Negative [facility] RBC LM.HPF (Urine sed) [#/Area] 0-2 0 - 2 /HPF [facility] Specific gravity (U) [Rel density] 1.026 [facility] Urobilinogen (U) [Mass/Vol] 0.2 E.U./dL 0.2 E.U/dL, 1.0 E.U/dL [facility] WBC LM.HPF (Urine sed) [#/Area] 10-20 Abnormal 0 - 5 /HPF [facility] [place] URINE PROTEIN/CREA RATIO, RA NDOMon 06-12-2022 Creatinine (24H U) [Mass/Vol] 231.68 mg/dL [facility] Protein Unsp time (U) [Mass/Vol] 49 mg/dL [facility] Protein/Creatinine (U) [Mass ratio] 0.211 mg/g [facility] [place] FK506 (TACROLIMUS) WHOLE BLO ODon 06-09-2022 Tacrolimus (FK506), Blood 9.8 ng/mL Normal 2.0-20.0 [facility] Comment on above: Result Comment: Trou gh (immediately following transplant) 15.0 . Trough (steady state, 2 weeks or more after transplant): 3.0 - 8.0 . Performed by LC-MS/MS technology. Performed By: #### U RTPCR #### [facility] [address] [place] [address] Dr. Dwight Waters ALBUMINon 06-06-2022 Albumin [Mass/Vol] 3.8 g/dL Normal 3.4-5.0 [facility] Comment on above: Performed By: #### C MP #### [facility] [address] [place] [address] Dr. Dwight Watesr ALKALINE PHOSPHAon ALP [Catalytic activity/Vol] 82 U/L Normal 46-116 [facility] [place] Comment on above: Performed By: #### C MP #### [facility] [address] [place] [address] Dr. Dwight Waters BILIRUBIN CONJUGATED (DIRECT )on 06-06-2022 BILI, CONJUGATED 0.2 mg/dL Normal 0.0-0.2 [facility] Comment on above: Performed By: #### C BC #### [facility] [address] [place] [address] Dr. Dwight Waters BILIRUBIN TOTALon 06-06-2022 Bilirubin [Mass/Vol] 1.0 mg/dL Normal 0.2-1.0 [facility] [place] Comment on above: Performed By: #### C BC #### [facility] [address] [place] [address] Dr. Dwight Waters BUNon 06-06-2022 Urea nitrogen [Mass/Vol] 18.0 mg/dL Normal 7.0-18.0 [facility] Comment on above: Performed By: #### C BC #### [facility] [address] [place] [address] Dr. Dwight Waters CALCIUMon 06-06-2022 Calcium [Mass/Vol] 9.4 mg/dL Normal 8.5-10.1 [facility] Comment on above: Performed By: #### C MP #### [facility] [address] [place] [address] Dr. Dwight Waters CBC AUTO DIFFon 06-06-2022 BASO # 0.1 103/ul Normal 0.0-0.1 [facility] Comment on above: Performed By: #### U RTPCR #### [facility] [address] [place] [address] Dr. Dwight Waters Basophils/100 WBC (Bld) 0.8 % Normal 0.2-2.0 [facility] [place] Comment on above: Performed By: #### U RTPCR #### [facility] [address] [place] [address] Dr. Dwight Waters EO # 0.3 103/ul Normal 0.0-0.7 [facility] [place] Comment on above: Performed By: #### U RTPCR #### [facility] [address] [place] [address] Dr. Dwight Waters Eosinophils/100 WBC (Bld) 3.3 % Normal 0.9-7.0 [facility] [place] Comment on above: Performed By: #### U RTPCR #### [facility] [address] [place] [address] Dr. Dwight Waters Erythrocyte distribution width (RBC) [Ratio] 12.4 % Normal 11.0-15.0 [facility] [place] Comment on above: Performed By: #### U RTPCR #### [facility] [address] [place] [address] Dr. Dwight Waters Hematocrit (Bld) [Volume fraction] 45.1 % Normal 42.0-54.0 [facility] [place] Comment on above: Performed By: #### U RTPCR #### [facility] [address] [place] [address] Dr. Dwight Waters Hemoglobin (Bld) [Mass/Vol] 14.4 g/dL Normal 14.0-18.0 [facility] [place] Comment on above: Performed By: #### U RTPCR #### [facility] [address] [place] [address] Dr. Dwight Waters IG # 0.01 10e3/ul Normal 0.00-0.03 [facility] [place] Comment on above: Performed By: #### U RTPCR #### [facility] [address] [place] [address] Dr. Dwight Waters IG % 0.1 % Normal 0.0-0.5 [facility] [place] Comment on above: Performed By: #### U RTPCR #### [facility] [address] [place] [address] Dr. Dwight Waters LYMPH # 2.2 103/ul Normal 1.2-3.8 [facility] [place] Comment on above: Performed By: #### U RTPCR #### [facility] [address] [place] [address] Dr. Dwight Waters Lymphocytes/100 WBC (Bld) 30.0 % Normal 20.5-60.0 [facility] [place] Comment on above: Performed By: #### U RTPCR #### [facility] [address] [place] [address] Dr. Dwight Waters MANUAL DIFF REQ NO Normal [facility] Comment on above: Performed By: #### U RTPCR #### [facility] [address] [place] [address] Dr. Dwight Waters MCH (RBC) [Entitic mass] 28.2 pg Normal 25.9-34.0 [facility] [place] Comment on above: Performed By: #### U RTPCR #### [facility] [address] [place] [address] Dr. Dwight Waters MCHC (RBC) [Mass/Vol] 31.9 g/dL Normal 29.9-35.2 [facility] [place] Comment on above: Performed By: #### U RTPCR #### [facility] [address] [place] [address] Dr. Dwight Waters MCV (RBC) [Entitic vol] 88.3 fL Normal 80.0-94.0 [facility] [place] Comment on above: Performed By: #### U RTPCR #### [facility] [address] [place] [address] Dr. Dwight Waters MONO # 0.6 103/ul Normal 0.3-0.8 [facility] Comment on above: Performed By: #### U RTPCR #### [facility] [address] [place] [address] Dr. Dwight Waters Monocytes/100 WBC (Bld) 8.2 % Normal 1.7-12.0 [facility] [place] Comment on above: Performed By: #### U RTPCR #### [facility] [address] [place] [address] Dr. Dwight Waters NEUT # 4.3 103/ul Normal 1.4-6.5 [facility] Comment on above: Performed By: #### U RTPCR #### [facility] [address] [place] [address] Dr. Dwight Waters Neutrophils/100 WBC (Bld) 57.6 % Normal 43.0-75.0 [facility] [place] Comment on above: Performed By: #### U RTPCR #### [facility] [address] [place] [address] Dr. Dwight Waters Platelet mean volume (Bld) [Entitic vol] 9.7 fL Normal 9.5-13.5 [facility] [place] Comment on above: Performed By: #### U RTPCR #### [facility] [address] [place] [address] Dr. Dwight Waters PLT 297 103/ul Normal 150-450 [facility] Comment on above: Performed By: #### U RTPCR #### [facility] [address] [place] [address] Dr. Dwight Waters RBC 5.11 106/ul Normal 4.70-6.10 [facility] Comment on above: Performed By: #### U RTPCR #### [facility] [address] [place] [address] Dr. Dwight Waters WBC 7.5 103/ul Normal 4.0-11.0 [facility] Comment on above: Performed By: #### U RTPCR #### [facility] [address] [place] [address] Dr. Dwight Waters CHLORIDEon 06-06-2022 Chloride [Moles/Vol] 107 mmol/L Normal 98-107 [facility] Comment on above: Performed By: #### C BC #### [facility] [address] [place] [address] Dr. Dwight Waters CO2on 06-06-2022 CO2 [Moles/Vol] 27.4 mmol/L Normal 21.0-32.0 [facility] Comment on above: Performed By: #### C BC #### [facility] [address] [place] [address] Dr. Dwight Waters CREATININEon 06-06-2022 Creatinine [Mass/Vol] 1.20 mg/dL Normal 0.70-1.30 [facility] Comment on above: Performed By: #### C BC #### [facility] [address] [place] [address] Dr. Dwight Waters EGFR-AF SALVADOREAN >60 Normal >=60 [facility] [place] Comment on above: Performed By: #### C BC #### [facility] [address] [place] [address] Dr. Dwight Waters EGFR-NON AF SALVADOREAN >60 Normal >=60 [facility] [place] Comment on above: Performed By: #### C BC #### [facility] [address] [place] [address] Dr. Dwight Waters GGTon 06-06-2022 Gamma glutamyl transferase [Catalytic activity/Vol] 29 U/L Normal 15-85 [facility] [place] Comment on above: Performed By: #### C BC #### [facility] [address] [place] [address] Dr. Dwight Waters GLUCOSE BLOODon 06-06-2022 Glucose [Mass/Vol] 112 mg/dL Critically high 74-106 [facility] Comment on above: Performed By: #### C BC #### [facility] [address] [place] [address] Dr. Dwight Waters MAGNESIUMon 06-06-2022 Magnesium [Mass/Vol] 1.3 mg/dL Critically low 1.8-2.4 [facility] [place] Comment on above: Performed By: #### C MP #### [facility] [address] [place] [address] Dr. Dwight Waters NAon 06-06-2022 Sodium [Moles/Vol] 141 mmol/L Normal 136-145 [facility] [place] Comment on above: Performed By: #### C MP #### [facility] [address] [place] [address] Dr. Dwight Waters PHOSPHORUSon 06-06-2022 Phosphate [Mass/Vol] 3.1 mg/dL Normal 2.6-4.7 [facility] [place] Comment on above: Performed By: #### C MP #### [facility] [address] [place] [address] Dr. Dwight Waters POTASSIUMon 06-06-2022 Potassium [Moles/Vol] 4.3 mmol/L Normal 3.5-5.1 [facility] [place] Comment on above: Performed By: #### C BC #### [facility] [address] [address] [address] Dwight OLVERAOTon 06-06-2022 AST [Catalytic activity/Vol] 16 U/L Normal 15-37 [facility] [place] Comment on above: Performed By: #### C BC #### [facility] [address] [address] [address] Dwight Waters SGPTon 06-06-2022 ALT [Catalytic activity/Vol] 50 U/L Normal 16-63 [facility] [place] Comment on above: Performed By: #### C BC #### [facility] [address] [place] [address] Dr. Dwight Waters Bacteria identified Cx Nom ( Bld)on 05-21-2022 Bacteria identified Cx Nom (Unsp spec) NO GROWTH DAY 5 OF 5 [facility] Results may be compr omised due to volume of BACT\ALERT bottle exceeding 10mLs . The optimal blood volume is 8-10 mls per aerobic/anaerobic blood culture bottle. [facility] [place] CALCIUMon 05-20-2022 Calcium [Mass/Vol] 9.1 mg/dL 8.6 - 10. 5 mg/dL [facility] CBC,PLATELETSon 05-20-2022 Erythrocyte distribution width (RBC) [Ratio] 12.5 % 10.9 - 14.3 % [facility] Hematocrit (Bld) [Volume fraction] 37.1 % Low 39.6 - 48.8 % [facility] Hemoglobin (Bld) [Mass/Vol] 12.3 g/dL Low 13.4 - 16.8 g/dL [facility] Interpretation and review of laboratory results Abnormal [facility] MCH (RBC) [Entitic mass] 28.9 pg 26.1 - 33.[address] [facility] MCHC (RBC) [Mass/Vol] 33.2 g/dL 31.9 - 36.5 g/dL [facility] MCV (RBC) [Entitic vol] 87.3 fL 79.0 - 94.[address] [facility] Platelet mean volume (Bld) [Entitic vol] 9.9 fL 8.7 - 12.[address] [facility] Platelets (Bld) [#/Vol] 234 10*3/uL 146 - 337 K/uL [facility] RBC (Bld) [#/Vol] 4.25 10*6/uL Low [facility] WBC (Bld) [#/Vol] 6.31 10*3/uL 3.73 - 10. 10 K/uL [facility] [place] CHEM 7 (LYTES,BUN,CREA,GLUC) on 05-20-2022 Anion gap [Moles/Vol] 15 mmol/L 7 - 17 mmol/L [facility] Chloride [Moles/Vol] 111 mmol/L High 98 - 10 8 mmol/L [facility] CO2 [Moles/Vol] 22 mmol/L 21 - 31 mmol/L [facility] Creatinine [Mass/Vol] 1.10 mg/dL 0.70 - 1.30 mg/dL [facility] GFR/1.73 sq M.predicted CKD-EPI (S/P/Bld) [Vol rate/Area] 81 >=60 mL/min/1.73m 2 [facility] Comment on above: Reported eGFR is bas ed on the CKD-EPI 2020 equation using creatinine, age, and sex. Glucose [Mass/Vol] 92 mg/dL 70 - 99 mg/dL [facility] Interpretation and review of laboratory results Abnormal [facility] Osmolality Calc [Osmolality] 302 [facility] Potassium [Moles/Vol] 4.4 mmol/L 3.5 - 5.0 mmol/L [facility] Sodium [Moles/Vol] 144 mmol/L 135 - 145 mmol/L [facility] Urea nitrogen [Mass/Vol] 18 mg/dL 7 - 25 mg/dL [facility] Urea nitrogen/Creatinine [Mass ratio] 16 mg/mg [facility] MAGNESIUMon 05-20-2022 Interpretation and review of laboratory results Abnormal [facility] Magnesium [Mass/Vol] 1.5 mg/dL Low 1.6 - 2 .6 mg/dL [facility] No Panel Informationon 05-20 Interpretation and review of laboratory results Normal [facility] [place] PHOSPHATE, INORGANICon 05-20 Phosphate [Mass/Vol] 3.3 mg/dL 2.2 - 4 .6 [facility] Unspecified body region V [...] projections of kidneys, ureters, and bladder. FINDINGS: Pet Technologist images: Pet Technologist radiographs of the abdomen reveal a nonobstructive [...] Contrast refluxes up the ureter to the [place] right kidney that is grossly normal appearing. [...] projections of kidneys, ureters, and bladder. FINDINGS: Pet Technologist images: Pet Technologist radiographs of the abdomen reveal a nonobstructive [...] Contrast refluxes up the ureter to the [place] right kidney that is grossly normal appearing. [...] I have reviewed and approved this report. [facility] Radiology Study observation (narrative) [facility] RF Unspecified body region V iews during surgeryOrdered By: Lizz Campos on 05-20-2022 [facility] Work Phone: CALCIUMon 05-19-2022 Calcium [Mass/Vol] 9.2 mg/dL 8.6 - 10. 5 mg/dL [facility] Calcium [Mass/Vol] 8.6 mg/dL 8.6 - 10. 5 mg/dL [facility] CBC,PLATELETSon 05-19-2022 Erythrocyte distribution width (RBC) [Ratio] 12.4 % 10.9 - 14.3 % [facility] Hematocrit (Bld) [Volume fraction] 38.0 % Low 39.6 - 48.8 % [facility] Hemoglobin (Bld) [Mass/Vol] 12.0 g/dL Low 13.4 - 16.8 g/dL [facility] Interpretation and review of laboratory results Abnormal [facility] MCH (RBC) [Entitic mass] 28.6 pg 26.1 - 33.[address] [facility] MCHC (RBC) [Mass/Vol] 31.6 g/dL Low 31.9 - 36.5 g/dL [facility] MCV (RBC) [Entitic vol] 90.5 fL 79.0 - 94.[address] [facility] Platelet mean volume (Bld) [Entitic vol] 9.7 fL 8.7 - 12.[address] [facility] Platelets (Bld) [#/Vol] 199 10*3/uL 146 - 337 K/uL [facility] RBC (Bld) [#/Vol] 4.20 10*6/uL Low [facility] WBC (Bld) [#/Vol] 6.81 10*3/uL 3.73 - 10. 10 K/uL [facility] [place] CHEM 7 (LYTES,BUN,CREA,GLUC) on 05-19-2022 Anion gap [Moles/Vol] 13 mmol/L 7 - 17 mmol/L [facility] Chloride [Moles/Vol] 105 mmol/L 98 - 10 8 mmol/L [facility] CO2 [Moles/Vol] 30 mmol/L 21 - 31 mmol/L [facility] Creatinine [Mass/Vol] 1.39 mg/dL High 0.70 - 1.30 mg/dL [facility] GFR/1.73 sq M.predicted CKD-EPI (S/P/Bld) [Vol rate/Area] 61 >=60 mL/min/1.73m 2 [facility] Comment on above: Reported eGFR is bas ed on the CKD-EPI 2020 equation using creatinine, age, and sex. Glucose [Mass/Vol] 121 mg/dL High 70 - 99 mg/dL [facility] Interpretation and review of laboratory results Abnormal [facility] Osmolality Calc [Osmolality] 303 [facility] Potassium [Moles/Vol] 3.8 mmol/L 3.5 - 5.0 mmol/L [facility] Sodium [Moles/Vol] 144 mmol/L 135 - 145 mmol/L [facility] Urea nitrogen [Mass/Vol] 18 mg/dL 7 - 25 mg/dL [facility] Urea nitrogen/Creatinine [Mass ratio] 13 mg/mg [facility] Anion gap [Moles/Vol] 15 mmol/L 7 - 17 mmol/L [facility] Chloride [Moles/Vol] 106 mmol/L 98 - 10 8 mmol/L [facility] CO2 [Moles/Vol] 24 mmol/L 21 - 31 mmol/L [facility] Creatinine [Mass/Vol] 1.46 mg/dL High 0.70 - 1.30 mg/dL [facility] GFR/1.73 sq M.predicted CKD-EPI (S/P/Bld) [Vol rate/Area] 58 Low >=60 mL/min/1.73m 2 [facility] Comment on above: Reported eGFR is bas ed on the CKD-EPI 1 equation using creatinine, age, and sex. Glucose [Mass/Vol] 103 mg/dL High 70 - 99 mg/dL [facility] Interpretation and review of laboratory results Abnormal [facility] Osmolality Calc [Osmolality] 298 [facility] Potassium [Moles/Vol] 3.9 mmol/L 3.5 - 5.0 mmol/L [facility] Sodium [Moles/Vol] 141 mmol/L 135 - 145 mmol/L [facility] Urea nitrogen [Mass/Vol] 21 mg/dL 7 - 25 mg/dL [facility] Urea nitrogen/Creatinine [Mass ratio] 14 mg/mg [facility] MAGNESIUMon 05-19-2022 Magnesium [Mass/Vol] 2.0 mg/dL 1.6 - 2 .6 mg/dL [facility] Magnesium [Mass/Vol] 1.7 mg/dL 1.6 - 2 .6 mg/dL [facility] No Panel Informationon 05-19 Interpretation and review of laboratory results Normal [facility] [place] Interpretation and review of laboratory results Normal [facility] [place] PHOSPHATE, INORGANICon 05-19 Phosphate [Mass/Vol] 3.0 mg/dL 2.2 - 4 .6 mg/dL [facility] Phosphate [Mass/Vol] 2.7 mg/dL 2.2 - 4 .6 mg/dL [facility] CALCIUMon 05-18-2022 Calcium [Mass/Vol] 9.1 mg/dL 8.6 - 10. 5 mg/dL [facility] CBC,PLATELETSon 05-18-2022 Erythrocyte distribution width (RBC) [Ratio] 12.5 % 10.9 - 14.3 % [facility] Hematocrit (Bld) [Volume fraction] 37.3 % Low 39.6 - 48.8 % [facility] Hemoglobin (Bld) [Mass/Vol] 11.9 g/dL Low 13.4 - 16.8 g/dL [facility] Interpretation and review of laboratory results Abnormal [facility] MCH (RBC) [Entitic mass] 28.9 pg 26.1 - 33.[address] [facility] MCHC (RBC) [Mass/Vol] 31.9 g/dL 31.9 - 36.5 g/dL [facility] MCV (RBC) [Entitic vol] 90.5 fL 79.0 - 94.[address] [facility] Platelet mean volume (Bld) [Entitic vol] 10.1 fL 8.7 - 12.[address] [facility] Platelets (Bld) [#/Vol] 189 10*3/uL 146 - 337 K/uL [facility] RBC (Bld) [#/Vol] 4.12 10*6/uL Low [facility] WBC (Bld) [#/Vol] 10.19 10*3/uL High 3.73 - 10 .10 K/uL [facility] [place] CHEM 7 (LYTES,BUN,CREA,GLUC) on 05-18-2022 Anion gap [Moles/Vol] 13 mmol/L 7 - 17 mmol/L [facility] Chloride [Moles/Vol] 102 mmol/L 98 - 10 8 mmol/L [facility] CO2 [Moles/Vol] 26 mmol/L 21 - 31 mmol/L [facility] Creatinine [Mass/Vol] 1.91 mg/dL High 0.70 - 1.30 mg/dL [facility] GFR/1.73 sq M.predicted CKD-EPI (S/P/Bld) [Vol rate/Area] 42 Low >=60 mL/min/1.73m 2 [facility] Comment on above: Reported eGFR is bas ed on the CKD-EPI 2020 equation using creatinine, age, and sex. Glucose [Mass/Vol] 158 mg/dL High 70 - 99 mg/dL [facility] Osmolality Calc [Osmolality] 297 [facility] Potassium [Moles/Vol] 4.0 mmol/L 3.5 - 5.0 mmol/L [facility] Sodium [Moles/Vol] 137 mmol/L 135 - 145 mmol/L [facility] Urea nitrogen [Mass/Vol] 30 mg/dL High 7 - 25 mg/dL [facility] Urea nitrogen/Creatinine [Mass ratio] 16 mg/mg [facility] CHEM 7 (LYTES,BUN,CREA,GLUC) Ordered By: Tamiko Thapa on 05-18-2022 Anion gap [Moles/Vol] 13 mmol/L 7 - 17 mmol/L [facility] Chloride [Moles/Vol] 104 mmol/L 98 - 10 8 mmol/L [facility] CO2 [Moles/Vol] 26 mmol/L 21 - 31 mmol/L [facility] Creatinine [Mass/Vol] 2.96 mg/dL High 0.70 - 1.30 mg/dL [facility] GFR/1.73 sq M.predicted CKD-EPI (S/P/Bld) [Vol rate/Area] 25 Low >=60 mL/min/1.73m 2 [facility] Comment on above: Reported eGFR is bas ed on the CKD-EPI 2020 equation using creatinine, age, and sex. Glucose [Mass/Vol] 136 mg/dL High 70 - 99 mg/dL [facility] Interpretation and review of laboratory results Abnormal [facility] Osmolality Calc [Osmolality] 304 [facility] Potassium [Moles/Vol] 4.2 mmol/L 3.5 - 5.0 mmol/L [facility] Sodium [Moles/Vol] 139 mmol/L 135 - 145 mmol/L [facility] Urea nitrogen [Mass/Vol] 41 mg/dL High 7 - 25 mg/dL [facility] Urea nitrogen/Creatinine [Mass ratio] 14 mg/mg [facility] MAGNESIUMon 05-18-2022 Magnesium [Mass/Vol] 2.2 mg/dL 1.6 - 2 .6 mg/dL [facility] Interpretation and review of laboratory results Normal [facility] Magnesium [Mass/Vol] 1.7 mg/dL 1.6 - 2 .6 mg/dL [facility] [place] No Panel Informationon 05-18 Interpretation and review of laboratory results Abnormal [facility] Interpretation and review of laboratory results Normal [facility] PHOSPHATE, INORGANICon 05-18 Phosphate [Mass/Vol] 2.0 mg/dL Low 2.2 - 4 .6 mg/dL [facility] Interpretation and review of laboratory results Normal [facility] Phosphate [Mass/Vol] 2.8 mg/dL 2.2 - 4 .6 mg/dL [facility] PT,INR,PTTon 05-18-2022 aPTT Coag (PPP) [Time] 31.[address] [facility] INR Coag (Bld) [Relative time] 1.1 {INR} [facility] Interpretation and review of laboratory results Abnormal [facility] PT Coag (PPP) [Time] 14.4 s High [facility] [place] URINE CULTUREOrdered By: Sylvia Campos on 05-18-2022 Bacteria identified Cx Nom (Unsp spec) No Growth [facility] [place] CBC,PLATELETSon 05-17-2022 Erythrocyte distribution width (RBC) [Ratio] 12.8 % 10.9 - 14.3 % [facility] Hematocrit (Bld) [Volume fraction] 42.8 % 39.6 - 48.8 % [facility] Hemoglobin (Bld) [Mass/Vol] 13.3 g/dL Low 13.4 - 16.8 g/dL [facility] Interpretation and review of laboratory results Abnormal [facility] MCH (RBC) [Entitic mass] 28.9 pg 26.1 - 33.[address] [facility] MCHC (RBC) [Mass/Vol] 31.1 g/dL Low 31.9 - 36.5 g/dL [facility] MCV (RBC) [Entitic vol] 92.8 fL 79.0 - 94.[address] [facility] Platelet mean volume (Bld) [Entitic vol] 10.3 fL 8.7 - 12.[address] [facility] Platelets (Bld) [#/Vol] 188 10*3/uL 146 - 337 K/uL [facility] RBC (Bld) [#/Vol] 4.61 10*6/uL [facility] WBC (Bld) [#/Vol] 16.61 10*3/uL High 3.73 - 10 .10 [facility] (LYTES,BUN,CREA,GLUC) Ordered By: Kaylah Mc on 05-17-2022 Anion gap [Moles/Vol] 15 mmol/L 7 - 17 mmol/L [facility] Chloride [Moles/Vol] 103 mmol/L 98 - 10 8 mmol/L [facility] CO2 [Moles/Vol] 23 mmol/L 21 - 31 [facility] Creatinine [Mass/Vol] 5.95 mg/dL High 0.70 - 1.30 mg/dL [facility] GFR/1.73 sq M.predicted CKD-EPI (S/P/Bld) [Vol rate/Area] 11 Low >=60 mL/min/1.73m 2 [facility] Comment on above: Reported eGFR is bas ed on the CKD-EPI 2020 equation using creatinine, age, and sex. Glucose [Mass/Vol] 165 mg/dL High 70 - 99 mg/dL [facility] Interpretation and review of laboratory results Abnormal [facility] Osmolality Calc [Osmolality] 305 [facility] Potassium [Moles/Vol] 4.6 mmol/L 3.5 - 5.0 mmol/L [facility] Sodium [Moles/Vol] 136 mmol/L 135 - 145 mmol/L [facility] Urea nitrogen [Mass/Vol] 52 mg/dL High 7 - 25 mg/dL [facility] Urea nitrogen/Creatinine [Mass ratio] 9 mg/mg [facility] [place] CHEM 7 (LYTES,BUN,CREA,GLUC) Ordered By: Kehinde Olsen on 05-17-2022 Anion gap [Moles/Vol] 24 mmol/L High 7 - 17 mmol/L [facility] Chloride [Moles/Vol] 100 mmol/L 98 - 10 8 mmol/L [facility] CO2 [Moles/Vol] 16 mmol/L Low 21 - 31 mmol/L [facility] Creatinine [Mass/Vol] 8.08 mg/dL High 0.70 - 1.30 mg/dL [facility] GFR/1.73 sq M.predicted CKD-EPI (S/P/Bld) [Vol rate/Area] 7 Low >=60 mL/min/1.73m 2 [facility] Comment on above: Reported eGFR is bas ed on the CKD-EPI 2020 equation using creatinine, age, and sex. Glucose [Mass/Vol] 164 mg/dL High 70 - 99 mg/dL [facility] Interpretation and review of laboratory results Abnormal [facility] Osmolality Calc [Osmolality] 305 [facility] Potassium [Moles/Vol] 5.0 mmol/L 3.5 - 5.0 mmol/L [facility] Sodium [Moles/Vol] 135 mmol/L 135 - 145 mmol/L [facility] Urea nitrogen [Mass/Vol] 56 mg/dL High 7 - 25 mg/dL [facility] Urea nitrogen/Creatinine [Mass ratio] 7 mg/mg [facility] [place] LAVENDER TOP TUBEon 05-17-20 [facility] MAGNESIUMon 05-17-2022 Interpretation and review of laboratory results Normal [facility] Magnesium [Mass/Vol] 1.8 mg/dL 1.6 - 2 .6 mg/dL [facility] [place] Interpretation and review of laboratory results Normal [facility] Magnesium [Mass/Vol] 1.6 mg/dL 1.6 - 2 .6 mg/dL [facility] No Panel Informationon 05-17 [facility] PHOSPHATE, INORGANICon 05-17 Interpretation and review of laboratory results Abnormal [facility] Phosphate [Mass/Vol] 4.9 mg/dL High 2.2 - 4 .6 mg/dL [facility] PT,INR,PTTon 05-17-2022 aPTT Coag (PPP) [Time] 33.[address] [facility] INR Coag (Bld) [Relative time] 1.3 {INR} High [facility] Interpretation and review of laboratory results Abnormal [facility] PT Coag (PPP) [Time] 15.[address] [facility] Viewson IMPRESSION: No [...] Stable cardiomegaly. IMPRESSION IMPRESSION: No acute findings. [facility] Radiology Study observation (narrative) [facility] Portable XR Chest ViewsOrder ed By: David Sanz on 05-17-2022 [facility] Work Phone: URINALYSISOrdered By: Michael patel Ma on 05-17-2022 Appearance (U) Cloudy Abnormal Clear [facility] Comment on above: Results may be inacc urate due to color interference. Clinical correlation recommended. Bacteria LM Ql (Urine sed) ABSENT ABSENT [facility] Color (U) Red Abnormal Yellow [facility] Comment on above: Results may be inacc urate due to color interference. Clinical correlation recommended. Epithelial cells.squamous LM Ql (Urine sed) ABSENT 1/hpf = 1+, 2-5/hpf = 2+, 0/hpf = 0+, ABSENT [facility] Glucose Test strip (U) [Mass/Vol] Negative [facility] Comment on above: Results may be inacc urate due to color interference. Clinical correlation recommended. Interpretation and review of laboratory results Abnormal [facility] Ketones (U) [Mass/Vol] Trace Abnormal Negative [facility] Comment on above: Results may be inacc urate due to color interference. Clinical correlation recommended. Leukocyte esterase Test strip Ql (U) Large Abnormal Negative [facility] Comment on above: Results may be inacc urate due to color interference. Clinical correlation recommended. Nitrite Ql (U) Negative Negative [facility] Comment on above: Results may be inacc urate due to color interference. Clinical correlation recommended. pH (U) 5.0 [pH] 5.0 - 7.0 [facility] Comment on above: Results may be inacc urate due to color interference. Clinical correlation recommended. Protein (U) [Mass/Vol] mg/dL Abnormal Negative [facility] Comment on above: Results may be inacc urate due to color interference. Clinical correlation recommended. RBC (U) [#/Vol] Large Abnormal Negative [facility] Comment on above: Results may be inacc urate due to color interference. Clinical correlation recommended. RBC LM.HPF (Urine sed) [#/Area] /[HPF] Abnormal 0 - 2 /HPF [facility] Specific gravity (U) [Rel density] 1.016 [facility] Comment on above: Results may be inacc urate due to color interference. Clinical correlation recommended. Urobilinogen (U) [Mass/Vol] 0.2 E.U./dL 0.2 E.U/dL, 1.0 E.U/dL [facility] Comment on above: Results may be inacc urate due to color interference. Clinical correlation recommended. WBC LM.HPF (Urine sed) [#/Area] /[HPF] Abnormal 0 - 5 /HPF [facility] [place] URINE CULTUREOrdered By: Tyler Tiwari on 05-17-2022 Bacteria identified Cx Nom (Unsp spec) No Growth [facility] [place] CBC,PLATELETSon 05-16-2022 Erythrocyte distribution width (RBC) [Ratio] 12.9 % 10.9 - 14.3 % [facility] Hematocrit (Bld) [Volume fraction] 46.5 % 39.6 - 48.8 % [facility] Hemoglobin (Bld) [Mass/Vol] 14.7 g/dL 13.4 - 16.8 g/dL [facility] Interpretation and review of laboratory results Abnormal [facility] MCH (RBC) [Entitic mass] 28.3 pg 26.1 - 33.[address] [facility] MCHC (RBC) [Mass/Vol] 31.6 g/dL Low 31.9 - 36.5 g/dL [facility] MCV (RBC) [Entitic vol] 89.6 fL 79.0 - 94.[address] [facility] Platelet mean volume (Bld) [Entitic vol] 10.3 fL 8.7 - 12.[address] [facility] Platelets (Bld) [#/Vol] 188 10*3/uL 146 - 337 K/uL [facility] RBC (Bld) [#/Vol] 5.19 10*6/uL [facility] WBC (Bld) [#/Vol] 12.55 10*3/uL High 3.73 - 10 .10 K/uL [facility] [place] CHEM 7 (LYTES,BUN,CREA,GLUC) Ordered By: Alma Pena on 05-16-2022 Anion gap [Moles/Vol] 14 mmol/L 7 - 17 mmol/L [facility] Chloride [Moles/Vol] 103 mmol/L 98 - 10 8 mmol/L [facility] CO2 [Moles/Vol] 22 mmol/L 21 - 31 mmol/L [facility] Creatinine [Mass/Vol] 6.09 mg/dL High 0.70 - 1.30 mg/dL [facility] GFR/1.73 sq M.predicted CKD-EPI (S/P/Bld) [Vol rate/Area] 10 Low >=60 mL/min/1.73m 2 [facility] Comment on above: Reported eGFR is bas ed on the CKD-EPI 2020 equation using creatinine, age, and sex. Glucose [Mass/Vol] 134 mg/dL High 70 - 99 mg/dL [facility] Interpretation and review of laboratory results Abnormal [facility] Osmolality Calc [Osmolality] 298 [facility] Potassium [Moles/Vol] 4.9 mmol/L 3.5 - 5.0 mmol/L [facility] Sodium [Moles/Vol] 134 mmol/L Low 135 - 145 mmol/L [facility] Comment on above: Results inconsistent with previous results Urea nitrogen [Mass/Vol] 49 mg/dL High 7 - 25 mg/dL [facility] Urea nitrogen/Creatinine [Mass ratio] 8 mg/mg [facility] [place] CHEM 7 (LYTES,BUN,CREA,GLUC) on 05-16-2022 Anion gap [Moles/Vol] 17 mmol/L 7 - 17 mmol/L [facility] Chloride [Moles/Vol] 106 mmol/L 98 - 10 8 mmol/L [facility] CO2 [Moles/Vol] 22 mmol/L 21 - 31 mmol/L [facility] Creatinine [Mass/Vol] 5.23 mg/dL High 0.70 - 1.30 mg/dL [facility] GFR/1.73 sq M.predicted CKD-EPI (S/P/Bld) [Vol rate/Area] 13 Low >=60 mL/min/1.73m 2 [facility] Comment on above: Reported eGFR is bas ed on the CKD-EPI 2020 equation using creatinine, age, and sex. Glucose [Mass/Vol] 116 mg/dL High 70 - 99 mg/dL [facility] Interpretation and review of laboratory results Abnormal [facility] Osmolality Calc [Osmolality] 305 [facility] Potassium [Moles/Vol] 4.6 mmol/L 3.5 - 5.0 mmol/L [facility] Sodium [Moles/Vol] 140 mmol/L 135 - 145 mmol/L [facility] Urea nitrogen [Mass/Vol] 42 mg/dL High 7 - 25 mg/dL [facility] Urea nitrogen/Creatinine [Mass ratio] 8 mg/mg [facility] EXTRA MICROon 05-16-2022 [facility] LT BLUE TOP TUBEon 2 [facility] LYTES (NA, K, CL) - URINE - RANDOMon 05-16-2022 Chloride (24H U) [Moles/Vol] 68 mmol/L [facility] Potassium (24H U) [Moles/Vol] 36.7 mmol/L [facility] Sodium (24H U) [Moles/Vol] 55 mmol/L [facility] The reference range has not been established for random urine specimens. The test result should be integrated into the clinical context for interpretation. [facility] MAGNESIUMon 05-16-2022 Interpretation and review of laboratory results Normal [facility] Magnesium [Mass/Vol] 1.7 mg/dL 1.6 - 2 .6 mg/dL [facility] NOVEL CORONAVIRUS PCROrdered By: Edson Candelario on 05-16-2022 SARS-CoV-2 (COVID-19) RNA ESTELITA+probe Ql (Unsp spec) Not detected NOT DETECTED [facility] Comment on above: [facility] Negative results do [...] use authorization for use by authorized laboratories. [facility] No Panel Informationon 05-16 [facility] [place] OSMOLALITY, URINEon 05-16-20 Interpretation and review of laboratory results Normal [facility] Osmolality (U) [Osmolality] 320 mosm/kg [facility] The reference range has not been established for random urine specimens. The test result should be integrated into the clinical context for interpretation. [facility] [place] PROCALCITONINon 05-16-2022 Interpretation and review of laboratory results Normal [facility] Procalcitonin [Mass/Vol] 0.18 ng/mL <0.50 [facility] Comment on above: Procalcitonin is an [...] and trend procalcitonin in various clinical settings. [email or web address]/[email or web address]/[email or web address].aspx?[email or web address]=/departments/Pharmacy/Documents/[email or web address] [email or web address].docx&action=default&DefaultItemOpen=1 Two common cutoffs associated with bacterial infections are as follows. Respiratory tract infections: >0.25 ng/mL Sepsis/septic shock: >0.5 ng/mL Procalcitonin should not be used alone as a diagnostic tool, however. All procalcitonin results should be interpreted in association with the patients clinical condition and all laboratory findings. [facility] PT,INR,PTTon 05-16-2022 aPTT Coag (PPP) [Time] 30.[address] [facility] INR Coag (Bld) [Relative time] 1.1 {INR} [facility] Interpretation and review of laboratory results Normal [facility] PT Coag (PPP) [Time] 14.1 s [facility] [place] SARS-CoV-2 (COVID-19) RNA NA A+probe Ql (Unsp spec)Ordered By: Edson Candelario on 05-16-2022 Interpretation and review of laboratory results Normal [facility] [place] TACROLIMUS LEVEL, TROUGH (ND E DRUG LEVEL)Ordered By: Mariama Nick on 05-16-2022 Interpretation and review of laboratory results Normal [facility] Tacrolimus (Bld) [Mass/Vol] 4.1 ng/mL Bone Marrow Transplant: 4.0-12.0, Therapeutic: 5.0-15.0 [facility] Method performed is a chemiluminescent microparticle immunoasssay on the [employer] i2000. The range is based on experience at [facility] and users should be aware that target concentrations vary widely depending on concomitant therapy, time post-transplant, and desired degree of immunosuppression. [facility] [place] URINE PROTEIN/CREA RATIO, RA ARPITOMon 05-16-2022 Creatinine (24H U) [Mass/Vol] 59.82 mg/dL [facility] Protein Unsp time (U) [Mass/Vol] 111 mg/dL [facility] Protein/Creatinine (U) [Mass ratio] 1.856 mg/g [facility] US for transplanted kidney l imitedon [...] appearing vascular flow in the transplant kidney. [facility] Radiology Study observation (narrative) [facility] US for transplanted kidney l imitedOrdered By: Rosendo Matute on 05-16-2022 [facility] Work Phone: CBC AND ELECTRONIC DIFFon Basophils (Bld) [#/Vol] 10*3/uL 0.00 - 0.09 K/uL [facility] Basophils/100 WBC (Bld) 0.2 % [facility] Differential cell count method Nom (Bld) Electronic Differential [facility] Eosinophils (Bld) [#/Vol] 10*3/uL 0.00 - 0.48 K/uL [facility] Eosinophils/100 WBC (Bld) 0.0 % [facility] Erythrocyte distribution width (RBC) [Ratio] 12.8 % 10.9 - 14.3 % [facility] Hematocrit (Bld) [Volume fraction] 46.0 % 39.6 - 48.8 % [facility] Hemoglobin (Bld) [Mass/Vol] 14.6 g/dL 13.4 - 16.8 g/dL [facility] Immature granulocytes (Bld) [#/Vol] 0.07 10*3/uL <=0.08 [facility] Immature granulocytes/100 WBC (Bld) 0.4 % [facility] Interpretation and review of laboratory results Abnormal [facility] Lymphocytes (Bld) [#/Vol] 1.49 10*3/uL 0.83 - 3.57 K/uL [facility] Lymphocytes/100 WBC (Bld) 9.4 % [facility] MCH (RBC) [Entitic mass] 28.2 pg 26.1 - 33.[address] [facility] MCHC (RBC) [Mass/Vol] 31.7 g/dL Low 31.9 - 36.5 g/dL [facility] MCV (RBC) [Entitic vol] 89.0 fL 79.0 - 94.[address] [facility] Monocytes (Bld) [#/Vol] 1.45 10*3/uL High 0.24 - 0.93 K/uL [facility] Monocytes/100 WBC (Bld) 9.2 % [facility] Neutrophils (Bld) [#/Vol] 12.77 10*3/uL High 1.57 - 6.19 K/uL [facility] Nucleated RBC/100 WBC (Bld) [Ratio] 0.0 % <=0.2 /[address] [facility] Platelet mean volume (Bld) [Entitic vol] 9.9 fL 8.7 - 12.[address] [facility] Platelets (Bld) [#/Vol] 250 10*3/uL 146 - 337 K/uL [facility] RBC (Bld) [#/Vol] 5.17 10*6/uL [facility] Segmented neutrophils/100 WBC (Bld) 80.8 % [facility] WBC (Bld) [#/Vol] 15.81 10*3/uL High 3.73 - 10 .10 K/uL [facility] [place] CBC AUTO DIFFon 05-15-2022 BASO # 0.0 103/ul Normal 0.0-0.1 [facility] Comment on above: Performed By: #### C BC #### [facility] [address] [address] [address] Dwight Waters Basophils/100 WBC (Bld) 0.3 % Normal 0.2-2.0 [facility] Comment on above: Performed By: #### C BC #### [facility] [address] [place] [address] Dr. Dwight Waters EO # 0.1 103/ul Normal 0.0-0.7 [facility] Comment on above: Performed By: #### C BC #### [facility] [address] [place] [address] Dr. Dwight Waters Eosinophils/100 WBC (Bld) 0.8 % Critically low 0.9-7.0 [facility] Comment on above: Performed By: #### C BC #### [facility] [address] [place] [address] Dr. Dwight Waters Erythrocyte distribution width (RBC) [Ratio] 12.7 % Normal 11.0-15.0 [facility] Comment on above: Performed By: #### C BC #### [facility] [address] [place] [address] Dr. Dwight Waters Hematocrit (Bld) [Volume fraction] 43.5 % Normal 42.0-54.0 [facility] Comment on above: Performed By: #### C BC #### [facility] [address] [place] [address] Dr. Dwight Waters Hemoglobin (Bld) [Mass/Vol] 14.4 g/dL Normal 14.0-18.0 [facility] Comment on above: Performed By: #### C BC #### [facility] [address] [place] [address] Dr. Dwight Waters IG # 0.02 10e3/ul Normal 0.00-0.03 [facility] Comment on above: Performed By: #### C BC #### [facility] [address] [place] [address] Dr. Dwight Waters IG % 0.2 % Normal 0.0-0.5 [facility] Comment on above: Performed By: #### C BC #### [facility] [address] [place] [address] Dr. Dwight Waters LYMPH # 1.5 103/ul Normal 1.2-3.8 [facility] Comment on above: Performed By: #### C BC #### [facility] [address] [place] [address] Dr. Dwight Waters Lymphocytes/100 WBC (Bld) 12.5 % Critically low 20.5-60.0 [facility] Comment on above: Performed By: #### C BC #### [facility] [address] [place] [address] Dr. Dwight Waters MANUAL DIFF REQ NO Normal [facility] Comment on above: Performed By: #### C BC #### [facility] [address] [place] [address] Dr. Dwight Waters MCH (RBC) [Entitic mass] 28.6 pg Normal 25.9-34.0 [facility] Comment on above: Performed By: #### C BC #### [facility] [address] [place] [address] Dr. Dwight Waters MCHC (RBC) [Mass/Vol] 33.1 g/dL Normal 29.9-35.2 [facility] Comment on above: Performed By: #### C BC #### [facility] [address] [place] [address] Dr. Dwight Waters MCV (RBC) [Entitic vol] 86.3 fL Normal 80.0-94.0 [facility] Comment on above: Performed By: #### C BC #### [facility] [address] [place] [address] Dr. Dwight Waters MONO # 1.0 103/ul Critically high 0.3-0.8 [facility] Comment on above: Performed By: #### C BC #### [facility] [address] [place] [address] Dr. Dwight Waters Monocytes/100 WBC (Bld) 8.2 % Normal 1.7-12.0 [facility] Comment on above: Performed By: #### C BC #### [facility] [address] [place] [address] Dr. Dwight Waters NEUT # 9.1 103/ul Critically high 1.4-6.5 [facility] Comment on above: Performed By: #### C BC #### [facility] [address] [address] [address] Dwight Waters Neutrophils/100 WBC (Bld) 78.0 % Critically high 43.0-75.0 [facility] Comment on above: Performed By: #### C BC #### [facility] [address] [address] [address] Dwight Waters Platelet mean volume (Bld) [Entitic vol] 9.8 fL Normal 9.5-13.5 [facility] Comment on above: Performed By: #### C BC #### [facility] [address] [address] [address] Dwight Waters PLT 251 103/ul Normal 150-450 [facility] Comment on above: Performed By: #### C BC #### [facility] [address] [address] [address] Dwight Waters RBC 5.04 106/ul Normal 4.70-6.10 [facility] Comment on above: Performed By: #### C BC #### [facility] [address] [address] [address] Dwight Waters WBC 11.6 103/ul Critically high 4.0-11.0 [facility] Comment on above: Performed By: #### C BC #### [facility] [address] [address] [address] Dwight Waters CHEM 6 (LYTES, BUN CREA)on 0 05-15-2022 Anion gap [Moles/Vol] 12 mmol/L 7 - 17 mmol/L [facility] Chloride [Moles/Vol] 105 mmol/L 98 - 10 8 mmol/L [facility] CO2 [Moles/Vol] 26 mmol/L 21 - 31 mmol/L [facility] Creatinine [Mass/Vol] 2.85 mg/dL High 0.70 - 1.30 mg/dL [facility] GFR/1.73 sq M.predicted CKD-EPI (S/P/Bld) [Vol rate/Area] 26 Low >=60 mL/min/1.73m 2 [facility] Comment on above: Reported eGFR is bas ed on the CKD-EPI 2020 equation using creatinine, age, and sex. Potassium [Moles/Vol] 4.6 mmol/L 3.5 - 5.0 mmol/L [facility] Sodium [Moles/Vol] 138 mmol/L 135 - 145 mmol/L [facility] Urea nitrogen [Mass/Vol] 32 mg/dL High 7 - 25 mg/dL [facility] Urea nitrogen/Creatinine [Mass ratio] 11 mg/mg [facility] CT ABD/PELVIS WO CONon 05-15 CT [...] transplanted kidney with moderate right-sided hydronephrosis. Atrophic [place] kidneys with moderate right-sided hydronephrosis. Multiple nonobstructive [...] transplanted kidney with moderate right-sided hydronephrosis. Atrophic [place] kidneys with moderate right-sided hydronephrosis. Multiple nonobstructive right renal calculi measuring up to 8 mm. FOLLOW-UP: Follow-up as clinically indicated. Electronically authenticated by: LYNDSAY JEAN Date: 2022-05-15 05:04 Normal [facility] Covid-19 PCR (CVDTBH)on 04-30 SARS-CoV-2 (COVID-19) RNA ESTELITA+probe Ql (Unsp spec) Not detected Normal NOT DETECTED [facility] Comment on above: Result Comment: When [...] for this test is supported by the [place] [employer] and [employer] Service's declaration that [...] used). Performed By: #### U RTPCR #### [facility] [address] [address] [address] Dwight Waters GLUCOSEon 05-15-2022 Glucose [Mass/Vol] 141 mg/dL High 70 - 99 mg/dL [facility] GOLD TOP TUBEon 05-15-2022 [facility] HEPATIC FUNCTION PANELon Albumin [Mass/Vol] 4.3 g/dL 3.5 - 5.0 g/dL [facility] ALP [Catalytic activity/Vol] 85 U/L 32 - 126 U/L [facility] ALT [Catalytic activity/Vol] 13 U/L 10 - 52 U/L [facility] AST [Catalytic activity/Vol] 15 U/L 10 - 39 U/L [facility] Bilirubin [Mass/Vol] 0.8 mg/dL <1.5 [facility] Bilirubin.direct [Mass/Vol] 0.2 mg/dL <0.3 [facility] Interpretation and review of laboratory results Normal [facility] Protein [Mass/Vol] 7.3 g/dL 6.4 - 8.3 g/dL [facility] LIPASEon 05-15-2022 Lipase [Catalytic activity/Vol] 8 U/L Low 11 - 82 U/L [facility] No Panel Informationon 05-15 Interpretation and review of laboratory results Abnormal [facility] [place] PROF 14(COMP METB)on 022 Albumin [Mass/Vol] 3.8 g/dL Normal 3.4-5.0 [facility] Comment on above: Performed By: #### U RTPCR #### [facility] [address] [place] [address] Dr. Dwight Waters Albumin/Globulin [Mass ratio] 1.1 {ratio} Normal [facility] Comment on above: Performed By: #### U RTPCR #### [facility] [address] [place] [address] Dr. Dwight Waters ALP [Catalytic activity/Vol] 92 U/L Normal 46-116 [facility] Comment on above: Performed By: #### U RTPCR #### [facility] [address] [address] [address] Dwight Waters ALT [Catalytic activity/Vol] 25 U/L Normal 16-63 [facility] Comment on above: Performed By: #### U RTPCR #### [facility] [address] [place] [address] Dr. Dwight Waters Anion gap [Moles/Vol] 14.6 mmol/L Normal [facility] Comment on above: Performed By: #### U RTPCR #### [facility] [address] [address] [address] Dwight Waters AST [Catalytic activity/Vol] 17 U/L Normal 15-37 [facility] Comment on above: Performed By: #### U RTPCR #### [facility] [address] [place] [address] Dr. Dwight Waters Bilirubin [Mass/Vol] 0.6 mg/dL Normal 0.2-1.0 [facility] Comment on above: Performed By: #### U RTPCR #### [facility] [address] [address] [address] Dwihgt Waters Calcium [Mass/Vol] 9.9 mg/dL Normal 8.5-10.1 [facility] Comment on above: Performed By: #### U RTPCR #### [facility] [address] [address] [address] Dwight Waters Chloride [Moles/Vol] 106 mmol/L Normal 98-107 [facility] Comment on above: Performed By: #### U RTPCR #### [facility] [address] [address] [address] Dwight Waters CO2 [Moles/Vol] 24.2 mmol/L Normal 21.0-32.0 [facility] Comment on above: Performed By: #### U RTPCR #### [facility] [address] [place] [address] Dr. Dwight Waters Creatinine [Mass/Vol] 1.58 mg/dL Critically high 0.70-1.30 [facility] Comment on above: Performed By: #### U RTPCR #### [facility] [address] [address] [address] Dwight Waters EGFR-AF SALVADOREAN 56 mL/min/1.73m2 Critically low >=60 [facility] Comment on above: Performed By: #### U RTPCR #### [facility] [address] [place] [address] Dr. Dwight Waters EGFR-NON AF [place]VADOREAN 46 mL/min/1.73m2 Critically low >=60 [facility] Comment on above: Performed By: #### U RTPCR #### [facility] [address] [address] [address] Dwight Waters Globulin (S) [Mass/Vol] 3.5 g/dL Normal [facility] Comment on above: Performed By: #### U RTPCR #### [facility] [address] [address] [address] Dwight Waters Glucose [Mass/Vol] 162 mg/dL Critically high 74-106 T [facility] Comment on above: Performed By: #### U RTPCR #### [facility] [address] [address] [address] Dwight Waters Potassium [Moles/Vol] 3.8 mmol/L Normal 3.5-5.1 [facility] Comment on above: Performed By: #### U RTPCR #### [facility] [address] [address] [address] Dwight Waters Protein [Mass/Vol] 7.3 g/dL Normal 6.4-8.2 [facility] Comment on above: Performed By: #### U RTPCR #### [facility] [address] [address] [address] Dwight Waters Sodium [Moles/Vol] 141 mmol/L Normal 136-145 [facility] Comment on above: Performed By: #### U RTPCR #### [facility] [address] [address] [address] Dwight Waters Urea nitrogen [Mass/Vol] 22.0 mg/dL Critically high 7.0-18.0 [facility] Comment on above: Performed By: #### U RTPCR #### [facility] [address] [address] [address] Dwight Waters Urea nitrogen/Creatinine [Mass ratio] 13.9 mg/mg Normal [facility] Comment on above: Performed By: #### U RTPCR #### [facility] [address] [address] [address] Dwight Waters Portable XR Chest Viewson [...] chest. IMPRESSION IMPRESSION: No acute cardiopulmonary disease [facility] Radiology Study observation (narrative) [facility] Portable XR Chest ViewsOrder ed By: Vladislav Omer on 05-15-2022 [facility] URINE DIPSTICK; REFLEX MICRO SCOPY; REFLEX CULTURE PERFORMABLEon 05-15-2022 Appearance (U) Clear Clear [facility] Color (U) Yellow Yellow [facility] Glucose Test strip (U) [Mass/Vol] 100 mg/dL Abnormal Negative [facility] Interpretation and review of laboratory results Abnormal [facility] Ketones (U) [Mass/Vol] Negative Negative [facility] Leukocyte esterase Test strip Ql (U) Large Abnormal Negative [facility] Nitrite Ql (U) Negative Negative [facility] pH (U) 6.0 [pH] 5.0 - 7.0 [facility] Protein (U) [Mass/Vol] 100 mg/dL Abnormal Negative [facility] RBC (U) [#/Vol] Large Abnormal Negative [facility] Specific gravity (U) [Rel density] 1.010 [facility] Urobilinogen (U) [Mass/Vol] 0.2 E.U./dL 0.2 E.U/dL, 1.0 E.U/dL [facility] [place] URINE MICROSCOPIC WITH REFLE X TO CULTUREOrdered By: Rey Bro on 05-15-2022 Bacteria LM Ql (Urine sed) ABSENT ABSENT [facility] Epithelial cells.squamous LM Ql (Urine sed) ABSENT 1/hpf = 1+, 2-5/hpf = 2+, 0/hpf = 0+, ABSENT [facility] Interpretation and review of laboratory results Abnormal [facility] RBC LM.HPF (Urine sed) [#/Area] /[HPF] Abnormal 0 - 2 /HPF [facility] WBC LM.HPF (Urine sed) [#/Area] 10-20 Abnormal 0 - 5 /HPF [facility] CT ABD/PELVIS WO CONon 05-12 CT ABD/PELVIS WO CON Begin Addendum #[address] Lund 3:25 PM EST 05/11/2022. Begin Addendum #2 IMPRESSION below should also contain the followin. 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 The [place] kidneys are progressively atrophic bilaterally compared to [...] of 06/14/2020 are no longer present. The [place] distal right ureter is decompressed beyond this [...] with surgical history for renal graft and [place] right urinary drainage, as a discrete ureteroneocystostomy is not identified, and the graft may be draining via a ureteroureterostomy. Urology consultation recommended. 3. The [place] kidneys are bilaterally atrophic, with right renal sinus calcifications consistent with nonobstructing right [place] renal calculi up to 6 mm. Normal [facility] CBC AUTO DIFFon 05-11-2022 BASO # 0.1 103/ul Normal 0.0-0.1 [facility] Comment on above: Performed By: #### U RTPCR #### [facility] [address] [address] [address] Dwight Waters Basophils/100 WBC (Bld) 0.8 % Normal 0.2-2.0 [facility] Comment on above: Performed By: #### U RTPCR #### [facility] [address] [address] [address] Dwight Waters EO # 0.2 103/ul Normal 0.0-0.7 [facility] Comment on above: Performed By: #### U RTPCR #### [facility] [address] [address] [address] Dwight Waters Eosinophils/100 WBC (Bld) 2.5 % Normal 0.9-7.0 [facility] Comment on above: Performed By: #### U RTPCR #### [facility] [address] [place] [address] Dr. Dwight Waters Erythrocyte distribution width (RBC) [Ratio] 12.5 % Normal 11.0-15.0 [facility] Comment on above: Performed By: #### U RTPCR #### [facility] [address] [place] [address] Dr. Dwight Watesr Hematocrit (Bld) [Volume fraction] 48.3 % Normal 42.0-54.0 [facility] Comment on above: Performed By: #### U RTPCR #### [facility] [address] [place] [address] Dr. Dwight Waters Hemoglobin (Bld) [Mass/Vol] 15.3 g/dL Normal 14.0-18.0 [facility] Comment on above: Performed By: #### U RTPCR #### [facility] [address] [place] [address] Dr. Dwight Waters IG # 0.01 10e3/ul Normal 0.00-0.03 [facility] Comment on above: Performed By: #### U RTPCR #### [facility] [address] [place] [address] Dr. Dwight Waters IG % 0.2 % Normal 0.0-0.5 [facility] Comment on above: Performed By: #### U RTPCR #### [facility] [address] [place] [address] Dr. Dwight Waters LYMPH # 1.9 103/ul Normal 1.2-3.8 [facility] Comment on above: Performed By: #### U RTPCR #### [facility] [address] [place] [address] Dr. Dwight Waters Lymphocytes/100 WBC (Bld) 29.8 % Normal 20.5-60.0 [facility] Comment on above: Performed By: #### U RTPCR #### [facility] [address] [place] [address] Dr. Dwight Waters MANUAL DIFF REQ NO Normal [facility] Comment on above: Performed By: #### U RTPCR #### [facility] [address] [place] [address] Dr. Dwight Waters MCH (RBC) [Entitic mass] 28.2 pg Normal 25.9-34.0 [facility] Comment on above: Performed By: #### U RTPCR #### [facility] [address] [place] [address] Dr. Dwight Waters MCHC (RBC) [Mass/Vol] 31.7 g/dL Normal 29.9-35.2 [facility] Comment on above: Performed By: #### U RTPCR #### [facility] [address] [place] [address] Dr. Dwight Waters MCV (RBC) [Entitic vol] 89.1 fL Normal 80.0-94.0 [facility] Comment on above: Performed By: #### U RTPCR #### [facility] [address] [place] [address] Dr. Dwight Waters MONO # 0.6 103/ul Normal 0.3-0.8 [facility] Comment on above: Performed By: #### U RTPCR #### [facility] [address] [place] [address] Dr. Dwight Waters Monocytes/100 WBC (Bld) 9.0 % Normal 1.7-12.0 [facility] Comment on above: Performed By: #### U RTPCR #### [facility] [address] [place] [address] Dr. Dwight Waters NEUT # 3.6 103/ul Normal 1.4-6.5 [facility] Comment on above: Performed By: #### U RTPCR #### [facility] [address] [place] [address] Dr. Dwight Waters Neutrophils/100 WBC (Bld) 57.7 % Normal 43.0-75.0 [facility] Comment on above: Performed By: #### U RTPCR #### [facility] [address] [place] [address] Dr. Dwight Waters Platelet mean volume (Bld) [Entitic vol] 9.9 fL Normal 9.5-13.5 [facility] Comment on above: Performed By: #### U RTPCR #### [facility] [address] [place] [address] Dr. Dwight Waters PLT 249 103/ul Normal 150-450 [facility] Comment on above: Performed By: #### U RTPCR #### [facility] [address] [place] [address] Dr. Dwight Waters RBC 5.42 106/ul Normal 4.70-6.10 [facility] Comment on above: Performed By: #### U RTPCR #### [facility] [address] [place] [address] Dr. Dwight Waters WBC 6.3 103/ul Normal 4.0-11.0 [facility] Comment on above: Performed By: #### U RTPCR #### [facility] [address] [place] [address] Dr. Dwight Waters ER URINE PROFILEon 2 Bilirubin Ql (U) Unable to perform te sting due to color interference. Abnormal NEGATIVE [facility] Comment on above: Performed By: #### U RTPCR #### [facility] [address] [place] [address] Dr. Dwight Waters Clarity (U) TURBID Abnormal CLEAR [facility] Comment on above: Performed By: #### U RTPCR #### [facility] [address] [place] [address] Dr. Dwight Waters Color (U) RED Abnormal YELLOW [facility] Comment on above: Performed By: #### U RTPCR #### [facility] [address] [place] [address] Dr. Dwight Waters ERUAHD A micrscopic examina tion will be performed if indicated. Normal [facility] Comment on above: Performed By: #### U RTPCR #### [facility] [address] [place] [address] Dr. Dwight Waters Glucose Ql (U) Unable to perform te sting due to color interference. Abnormal NEGATIVE [facility] Comment on above: Performed By: #### U RTPCR #### [facility] [address] [place] [address] Dr. Dwight Waters Hemoglobin Ql (U) Unable to perform te sting due to color interference. Abnormal NEGATIVE [facility] Comment on above: Performed By: #### U RTPCR #### [facility] [address] [place] [address] Dr. Dwight Waters Ketones Ql (U) Unable to perform te sting due to color interference. Abnormal NEGATIVE [facility] Comment on above: Performed By: #### U RTPCR #### [facility] [address] [place] [address] Dr. Dwight Waters LEUKOCYTES Unable to perform te sting due to color interference. Abnormal NEGATIVE [facility] Comment on above: Performed By: #### U RTPCR #### [facility] [address] [place] [address] Dr. Dwight Waters Nitrite Ql (U) Unable to perform te sting due to color interference. Abnormal NEGATIVE [facility] Comment on above: Performed By: #### U RTPCR #### [facility] [address] [place] [address] Dr. Dwight Waters pH (U) 6.5 [pH] Normal 5-9 [facility] Comment on above: Performed By: #### U RTPCR #### [facility] [address] [place] [address] Dr. Dwight Waters SPEC GRAVITY 1.020 Normal 1.005-<=1.02 5 [facility] Comment on above: Performed By: #### U RTPCR #### [facility] [address] [place] [address] Dr. Dwight Waters UA PROTEIN Unable to perform te sting due to color interference. Normal NEGATIVE/ TRACE [facility] Comment on above: Performed By: #### U RTPCR #### [facility] [address] [place] [address] Dr. Dwight Waters UR MICRO IND INDICATED Normal [facility] Comment on above: Performed By: #### U RTPCR #### [facility] [address] [place] [address] Dr. Dwight Waters UROBILINOGEN Unable to perform te sting due to color interference. Normal 0.2 - 1.0 [facility] Comment on above: Performed By: #### U RTPCR #### [facility] [address] [place] [address] Dr. Dwight Waters PROF 14(COMP METB)on 022 Albumin [Mass/Vol] 3.8 g/dL Normal 3.4-5.0 [facility] Comment on above: Performed By: #### C MP #### [facility] [address] [place] [address] Dr. Dwight Waters Albumin/Globulin [Mass ratio] 1.1 {ratio} Normal [facility] Comment on above: Performed By: #### C MP #### [facility] [address] [place] [address] Dr. Dwight Waters ALP [Catalytic activity/Vol] 106 U/L Normal 46-116 [facility] Comment on above: Performed By: #### C MP #### [facility] [address] [place] [address] Dr. Dwight Waters ALT [Catalytic activity/Vol] 30 U/L Normal 16-63 [facility] Comment on above: Performed By: #### C MP #### [facility] [address] [place] [address] Dr. Dwgiht Waters Anion gap [Moles/Vol] 11.7 mmol/L Normal [facility] Comment on above: Performed By: #### C MP #### [facility] [address] [place] [address] Dr. Dwight Waters AST [Catalytic activity/Vol] 16 U/L Normal 15-37 [facility] Comment on above: Performed By: #### C MP #### [facility] [address] [place] [address] Dr. Dwight Waters Bilirubin [Mass/Vol] 0.6 mg/dL Normal 0.2-1.0 [facility] Comment on above: Performed By: #### C MP #### [facility] [address] [address] [address] Dwight Waters Calcium [Mass/Vol] 9.1 mg/dL Normal 8.5-10.1 [facility] Comment on above: Performed By: #### C MP #### [facility] [address] [address] [address] Dwight Waters CO2 [Moles/Vol] 27.4 mmol/L Normal 21.0-32.0 [facility] Comment on above: Performed By: #### C MP #### [facility] [address] [place] [address] Dr. Dwight Waters Creatinine [Mass/Vol] 1.18 mg/dL Normal 0.70-1.30 [facility] Comment on above: Performed By: #### C MP #### [facility] [address] [place] [address] Dr. Dwight Waters EGFR-AF SALVADOREAN >60 Normal >=60 [facility] Comment on above: Performed By: #### C MP #### [facility] [address] [place] [address] Dr. Dwight Waters EGFR-NON AF SALVADOREAN >60 Normal >=60 [facility] Comment on above: Performed By: #### C MP #### [facility] [address] [place] [address] Dr. Dwight Waters Globulin (S) [Mass/Vol] 3.6 g/dL Normal [facility] Comment on above: Performed By: #### C MP #### [facility] [address] [place] [address] Dr. Dwight Waters Glucose [Mass/Vol] 192 mg/dL Critically high 74-106 T [facility] Comment on above: Performed By: #### C MP #### [facility] [address] [place] [address] Dr. Dwight Waters Potassium [Moles/Vol] 4.1 mmol/L Normal 3.5-5.1 [facility] Comment on above: Performed By: #### C MP #### [facility] [address] [place] [address] Dr. Dwight Waters Protein [Mass/Vol] 7.4 g/dL Normal 6.4-8.2 [facility] Comment on above: Performed By: #### C MP #### [facility] [address] [place] [address] Dr. Dwight Waters Sodium [Moles/Vol] 142 mmol/L Normal 136-145 [facility] Comment on above: Performed By: #### C MP #### [facility] [address] [place] [address] Dr. Dwight Waters Urea nitrogen [Mass/Vol] 17.0 mg/dL Normal 7.0-18.0 [facility] Comment on above: Performed By: #### C MP #### [facility] [address] [place] [address] Dr. Dwight Waters Urea nitrogen/Creatinine [Mass ratio] 14.4 mg/mg Normal [facility] Comment on above: Performed By: #### C MP #### [facility] [address] [place] [address] Dr. Dwigth Waters URINE MICROSCOPIC ONLYon BACTERIA NONE SEEN Normal NONE SEEN [facility] Comment on above: Performed By: #### U RTPCR #### [facility] [address] [place] [address] Dr. Dwight Waters Bacteria identified Cx Nom (U) NOT INDICATED Normal [facility] Comment on above: Performed By: #### U RTPCR #### [facility] [address] [place] [address] Dr. Dwight Waters CAST NONE SEEN Normal NONE SEEN [facility] Comment on above: Performed By: #### U RTPCR #### [facility] [address] [place] [address] Dr. Dwight Waters Crystals LM Nom (Urine sed) NONE SEEN Normal NONE SEEN [facility] Comment on above: Performed By: #### U RTPCR #### [facility] [address] [place] [address] Dr. Dwight Waters Epithelial cells LM Ql (Urine sed) RARE Normal NONE SEEN /RARE [facility] Comment on above: Performed By: #### U RTPCR #### [facility] [address] [address] [address] Dwight Waters MUCOUS NONE SEEN Normal NONE SEEN [facility] Comment on above: Performed By: #### U RTPCR #### [facility] [address] [address] [address] Dwight Waters RBC (U) [#/Vol] /uL Abnormal 0-2 [facility] Comment on above: Performed By: #### U RTPCR #### [facility] [address] [address] [address] Dwight Waters WBC NONE SEEN Normal NONE SEEN [facility] Comment on above: Performed By: #### U RTPCR #### [facility] [address] [place] [address] Dr. Dwight Waters K (Potassium)on 01-06-2020 Potassium [Moles/Vol] 4.4 mmol/L Normal 3.7-5.3 [facility] Comment on above: Performed By: #### K #### [facility] [address] [place] [address] Yoga Teacher: Kehinde Woodward MD Potassiumon 01-06-2020 Potassium [Moles/Vol] 4.4 mmol/L 3.7 - 5.3 mmol/L [place] Work Phone: Hemoglobin and Hematocrit, B loodon 10-24-2019 Hematocrit (Bld) [Volume fraction] 23.6 % Low 40.7 - 50.3 % [place], [place] Hemoglobin (Bld) [Mass/Vol] 7.3 g/dL Low 13 - 17 g/dL [place] Interpretation and review of laboratory results Abnormal [place] Hgb/Hcton 10-24-2019 Hematocrit (Bld) [Volume fraction] 23.6 % Low 40.7-50.3 [facility] Comment on above: Performed By: #### H H #### [facility] [address] [place] [address] Yoga Teacher: Kehinde Woodward MD Hemoglobin (Bld) [Mass/Vol] 7.3 g/dL Low 13.0-17.0 [facility] Comment on above: Performed By: #### H H #### [facility] [address] [place] [address] Yoga Teacher: Kehinde Woodward MD Hemoglobinon 08-27-2019 Hemoglobin (Bld) [Mass/Vol] 7.5 g/dL Low 13.0-17.0 [facility] Comment on above: Performed By: #### H GB #### [facility] [address] [place] [address] Yoga Teacher: Kehinde Woodward MD Hemoglobin (Bld) [Mass/Vol] 7.5 g/dL Low 13 - 17 g/dL [place] Interpretation and review of laboratory results Abnormal [place] Hemoglobinon 08-08-2019 Hemoglobin (Bld) [Mass/Vol] 8.3 g/dL Low 13.0-17.0 [facility] Comment on above: Performed By: #### H GB #### [facility] [address] [place] [address] Yoga Teacher: Kehinde Woodward MD Hemoglobin (Bld) [Mass/Vol] 8.3 g/dL Low 13 - 17 g/dL [place] Interpretation and review of laboratory results Abnormal [place] Hemoglobinon 08-04-2019 Hemoglobin (Bld) [Mass/Vol] 8.0 g/dL Low 13.0-17.0 [facility] Comment on above: Performed By: #### H GB #### [facility] [address] [place] [address] Yoga Teacher: Kehinde Woodward MD Hemoglobin A1Con 08-03-2019 HbA1c (Bld) [Mass fraction] % Low 4.8-5.9 [facility] Comment on above: Result Comment: The ADA and AACC recommend providing the estimated average glucose result to permit better patient understanding of their HBA1c result. Performed By: #### G LYHGB #### [facility] [address] [place] [address] Yoga Teacher: Kehinde Woodward MD Glucose [Mass/Vol] mg/dL mg/dL [place], [place] Comment on above: The ADA and AACC rec ommend providing the estimated average glucose result to permit better patient understanding of their HBA1c result. HbA1c (Bld) [Mass fraction] % Low 4.8 - 5.9 % [place] Interpretation and review of laboratory results Abnormal [place] Hemoglobinon 08-01-2019 Hemoglobin (Bld) [Mass/Vol] 8.1 g/dL Low 13.0-17.0 [facility] Comment on above: Performed By: #### H GB #### [address] [place] [address] Yoga Teacher: Kehinde Woodward MD Hemoglobin (Bld) [Mass/Vol] 8.1 g/dL Low 13 - 17 g/dL [place] Interpretation and review of laboratory results Abnormal [place] Hgb/Hcton 06-10-2019 Hematocrit (Bld) [Volume fraction] 24.3 % Low 40.7-50.3 [facility] Comment on above: Performed By: #### H H #### [address] [place] [address] Yoga Teacher: Kehinde Woodward MD Hemoglobin (Bld) [Mass/Vol] 7.4 g/dL Low 13.0-17.0 [facility] Comment on above: Performed By: #### H H #### [facility] [address] [place] [address] Yoga Teacher: Kehinde Woodward MD Hemoglobinon 06-01-2019 Hemoglobin (Bld) [Mass/Vol] 7.2 g/dL Low 13.0-17.0 [facility] Comment on above: Performed By: #### H GB #### [facility] [address] [place] [address] Yoga Teacher: Kehinde Woodward MD K (Potassium)on 01-14-2019 Potassium [Moles/Vol] 3.6 mmol/L Low 3.7-5.3 [facility] Comment on above: Performed By: #### K #### [facility] [address] [place] [address] Yoga Teacher: Kehinde Woodward MD Otheron 10-19-2018 IMPRESSION: [...] ascites is noted. Invalid Interpretation Code RADIOLOGY Chris, Lupillo - 10/19/2018 8:41 AM EST EXAM: [...] characteristics determined by Toxicology Laboratory at [facility]. It has not been cleared or [...] Amitriptyline(50), Amphetamine(250), Atenolol(500), Barbiturates(1000), Benzoylecgonine(50), Buprenorphine(50), Bupropion(25), Caffeine(53979), Chlordiazepoxide(50), Chlorpheniramine(100), Chlorpromazine(50), Citalopram(100), Clonazepam(200), Cocaine(25), Codeine(200), [...] QASIM Hay [facility]ICOLOG[facility]EN [facility] Drugs identified Screen Nom (U) For Medical Purposes Only, Non-forensic, screen results are presumptive. No confirmatory testing will follow. Invalid Interpretation QASIM Hay Comment on above: This Liquid Chromato graphy Mass Spectrometry (LC/MS/MS) test was developed and its performance characteristics determined by Toxicology Laboratory at [facility]. It has not been cleared or [...] Amitriptyline(50), Amphetamine(250), Atenolol(500), Barbiturates(200), Benzoylecgonine(50), Buprenorphine(500), Bupropion(25), Caffeine(98497), Cannabinoids(THC)(50), Chlordiazepoxide(50), Chlorpheniramine(100), Chlorpromazine(50), Citalopram(100), Clonazepam(200), Cocaine(25), [...] 56 mm[Hg] Candie Almaguer MD Work Phone: [facility] 02-26-2024 09:07-0400 Heart rate 65 /min Candie Almaguer MD Work Phone: [facility] 02-26-2024 09:07-0400 Systolic blood pressure 113 mm[Hg] Candie Almaguer MD Work Phone: [facility] 02-26-2024 09:06-0400 Body height 170.2 cm Candie Almaguer MD Work Phone: [facility] 02-26-2024 09:06-0400 Body mass index (BMI) [Ratio] 28.9 kg/m2 Candie Almaguer MD Work Phone: [facility] 02-26-2024 09:06-0400 Body weight 83.69 kg Candie Almaguer MD Work Phone: [facility] 02-26-2024 09:06-0400 Respiratory rate 20 /min Candie Almaguer MD Work Phone: [facility] 02-26-2024 09:06-0400 SaO2% (BldA) [Mass fraction] 97 % Candie Almaguer MD Work Phone: [facility] 01-23-2024 15:04-0500 Body temperature 97.9 [degF] Kevin Sage MD Work Phone: [facility] 01-23-2024 15:04-0500 Diastolic blood pressure 67 mm[Hg] Kevin Sage MD Work Phone: [facility] 01-23-2024 15:04-0500 Heart rate 51 /min Kevin Sage MD Work Phone: [facility] 01-23-2024 15:04-0500 Respiratory rate 16 /min Kevin Sage MD Work Phone: [facility] 01-23-2024 15:04-0500 SaO2% (BldA) [Mass fraction] 94 % Kevin Sage MD Work Phone: [facility] 01-23-2024 15:04-0500 Systolic blood pressure 151 mm[Hg] Kevin Sage MD Work Phone: [facility] 01-23-2024 10:46-0500 Body mass index (BMI) [Ratio] 30.94 kg/m2 Kevin Sage MD Work Phone: [facility] 01-23-2024 10:46-0500 Body weight 89.6 kg Kevin Sage MD Work Phone: [facility] 01-18-2024 11:21-0500 Body height 170.2 cm Kevin Sage MD Work Phone: [facility] 01-06-2024 09:04-0500 Body height 170.2 cm Zuly Bruno [employer] CHA[employer] Work Phone: [facility] 01-06-2024 09:04-0500 Body mass index (BMI) [Ratio] 32.42 kg/m2 Zuly Bruno [employer] DEPARTMENT CHAIR Work Phone: [facility] 01-06-2024 09:04-0500 Body temperature 97.81 [degF] Zuly Bruno [employer] SCI[employer] DEPARTMENT CHAIR Work Phone: [facility] 01-06-2024 09:04-0500 Body weight 93.89 kg Zuly Aichholz [employer] SCI[employer] DEPARTMENT CHAIR Work Phone: [facility] 01-06-2024 09:04-0500 Diastolic blood pressure 70 mm[Hg] Zulytray Torresholz [employer] SCI[employer] DEPARTMENT CHAIR Work Phone: [facility] 01-06-2024 09:04-0500 Heart rate 95 /min Zuly Kristopherhholz [employer] DE[employer]MENT CHAIR Work Phone: [facility] 01-06-2024 09:04-0500 Respiratory rate 17 /min Zuly Kristopherhholz [employer] DEPARTMENT CHAIR Work Phone: [facility] 01-06-2024 09:04-0500 SaO2% (BldA) [Mass fraction] 99 % Zuly Kristopherhholz [employer] DEPARTMENT CHAIR Work Phone: [facility] 01-06-2024 09:04-0500 Systolic blood pressure 138 mm[Hg] Zuly Kristopherhholz [employer] SCI[employer] DEPARTMENT CHAIR Work Phone: [facility] 09-11-2023 10:31-0400 Body temperature 97.81 [degF] Steve Yeison MBBS Work Phone: [facility] 09-11-2023 10:31-0400 Diastolic blood pressure 66 mm[Hg] Steve Yeison MBBS Work Phone: [facility] 09-11-2023 10:31-0400 Heart rate 70 /min Steve Yeison MBBS Work Phone: [facility] 09-11-2023 10:31-0400 Respiratory rate 20 /min Steve Yeison MBBS Work Phone: [facility] 09-11-2023 10:31-0400 SaO2% (BldA) [Mass fraction] 91 % Steve Yeison MBBS Work Phone: [facility] 09-11-2023 10:31-0400 Systolic blood pressure 129 mm[Hg] Steve Yeison MBBS Work Phone: [facility] 09-10-2023 15:50-0400 Body mass index (BMI) [Ratio] 31.99 kg/m2 Steve Yeison MBBS Work Phone: [facility] 09-10-2023 15:50-0400 Body weight 92.67 kg Steve Yeison MBBS Work Phone: [facility] 09-02-2023 07:32-0400 Body height 170.2 cm Steve Yeison MBBS Work Phone: 7(600)852-433072 [address] 08-28-2023 13:33-0400 Body height 170.2 cm Steve Yeison MBBS Work Phone: [facility] 08-28-2023 13:33-0400 Body mass index (BMI) [Ratio] 32.12 kg/m2 Steve Yeison MBBS Work Phone: 5(578)087-086172 [address] 08-28-2023 13:33-0400 Body temperature 97.3 [degF] Steve Yeison MBBS Work Phone: [facility] 08-28-2023 13:33-0400 Body weight 93.03 kg Steve Yeison MBBS Work Phone: [facility] 08-28-2023 13:33-0400 Diastolic blood pressure 41 mm[Hg] Steve Yeison MBBS Work Phone: [facility] 08-28-2023 13:33-0400 Heart rate 116 /min Steve Yeison MBBS Work Phone: [facility] 08-28-2023 13:33-0400 Systolic blood pressure 106 mm[Hg] Steve Yeison MBBS Work Phone: [facility] 06-12-2023 14:50-0400 Body mass index (BMI) [Ratio] 33.8 kg/m2 Rebeca Olsen APRN-DATA SYSTEMS MANAGER Work Phone: [facility] 06-12-2023 14:50-0400 Body temperature 97.3 [degF] Rebeca Olsen PEDIATRIC ORTHODONTIST-DATA SYSTEMS MANAGER Work Phone: [facility] 06-12-2023 14:50-0400 Body weight 97.89 kg Rebeca Olsen PEDIATRIC ORTHODONTIST-DATA SYSTEMS MANAGER Work Phone: [facility] 06-12-2023 14:50-0400 Diastolic blood pressure 77 mm[Hg] Rebeca Olsen PEDIATRIC ORTHODONTIST-DATA SYSTEMS MANAGER Work Phone: [facility] 06-12-2023 14:50-0400 Heart rate 76 /min Rebeca Olsen PEDIATRIC ORTHODONTIST-DATA SYSTEMS MANAGER Work Phone: [facility] 06-12-2023 14:50-0400 Systolic blood pressure 146 mm[Hg] Rebeca Olsen PEDIATRIC ORTHODONTIST-DATA SYSTEMS MANAGER Work Phone: [facility] 01-16-2023 08:57-0500 Body height 170.2 cm [facility] 3 Work Phone: [facility] 01-16-2023 08:57-0500 Body mass index (BMI) [Ratio] 33.66 kg/m2 [facility] 3 Work Phone: [facility] 01-16-2023 08:57-0500 Body temperature 97.3 [degF] [facility] 3 Work Phone: [facility] 01-16-2023 08:57-0500 Body weight 97.48 kg [facility] 3 Work Phone: [facility] 01-16-2023 08:57-0500 Diastolic blood pressure 75 mm[Hg] [facility] 3 Work Phone: [facility] 01-16-2023 08:57-0500 Heart rate 76 /min [facility] 3 Work Phone: [facility] 01-16-2023 08:57-0500 Systolic blood pressure 142 mm[Hg] [facility] 3 Work Phone: [facility] 09-10-2022 09:38-0400 Body height 170.2 cm Ryan Yepez MD Work Phone: [facility] 09-10-2022 09:38-0400 Body mass index (BMI) [Ratio] 33.67 kg/m2 Ryan Yepez MD Work Phone: [facility] 09-10-2022 09:38-0400 Body weight 97.52 kg Ryan Yepez MD Work Phone: [facility] 09-10-2022 09:38-0400 Diastolic blood pressure 83 mm[Hg] Ryan Yepez MD Work Phone: [facility] 09-10-2022 09:38-0400 Heart rate 64 /min Ryan Yepez MD Work Phone: [facility] 09-10-2022 09:38-0400 SaO2% (BldA) [Mass fraction] 96 % Ryan Yepez MD Work Phone: [facility] 09-10-2022 09:38-0400 Systolic blood pressure 129 mm[Hg] Ryan Yepez MD Work Phone: [facility] 07-07-2022 13:48-0400 Diastolic blood pressure 76 mm[Hg] Ryan Yepez MD Work Phone: [facility] 07-07-2022 13:48-0400 Heart rate 82 /min Ryan Yepez MD Work Phone: [facility] 07-07-2022 13:48-0400 SaO2% (BldA) [Mass fraction] 96 % Ryan Yepez MD Work Phone: [facility] 07-07-2022 13:48-0400 Systolic blood pressure 141 mm[Hg] Ryan Yepez MD Work Phone: [facility] 06-27-2022 13:32-0400 Body height 170.2 cm Ryan Yepez MD Work Phone: [facility] 06-27-2022 13:32-0400 Body mass index (BMI) [Ratio] 34.24 kg/m2 Ryan Yepez MD Work Phone: 7(471)[phone] [address] 06-27-2022 13:32-0400 Body temperature 98.6 [degF] Ryan Yepez MD Work Phone: 6(046)[phone] [address] 06-27-2022 13:32-0400 Body weight 99.16 kg Ryan Yepez MD Work Phone: [facility] 06-27-2022 13:32-0400 Diastolic blood pressure 78 mm[Hg] Ryan Yepez MD Work Phone: [facility] 06-27-2022 13:32-0400 Heart rate 77 /min Ryan Yepez MD Work Phone: [facility] 06-27-2022 13:32-0400 SaO2% (BldA) [Mass fraction] 95 % Ryan Yepez MD Work Phone: [facility] 06-27-2022 13:32-0400 Systolic blood pressure 121 mm[Hg] Ryan Yepez MD Work Phone: [facility] 06-27-2022 10:52-0400 Body height 170.2 cm Rena Brwester RN [facility] 06-27-2022 10:52-0400 Body mass index (BMI) [Ratio] 34.46 kg/m2 Rena Brewster RN [facility] 06-27-2022 10:52-0400 Body temperature 98.2 [degF] Rena Brewster RN [facility] 06-27-2022 10:52-0400 Body weight 99.79 kg Rena Brewster RN [facility] 06-27-2022 10:52-0400 Diastolic blood pressure 73 mm[Hg] Rena Brewster RN [facility] 06-27-2022 10:52-0400 Heart rate 78 /min Rena Brewster RN [facility] 06-27-2022 10:52-0400 Respiratory rate 20 /min Rena Brewster RN [facility] 06-27-2022 10:52-0400 SaO2% (BldA) [Mass fraction] 97 % Rena Brewster RN [facility] 06-27-2022 10:52-0400 Systolic blood pressure 135 mm[Hg] Rena Brewster RN [facility] 06-12-2022 14:23-0400 Body mass index (BMI) [Ratio] 34.59 kg/m2 Steve Yeison MBBS Work Phone: [facility] 06-12-2022 14:23-0400 Body temperature 97 [degF] Steve Yeison MBBS Work Phone: [facility] 06-12-2022 14:23-0400 Body weight 100.2 kg Steve Yeison MBBS Work Phone: [facility] 06-12-2022 14:23-0400 Diastolic blood pressure 66 mm[Hg] Steve Yeison MBBS Work Phone: [facility] 06-12-2022 14:23-0400 Heart rate 63 /min Steve Yeison MBBS Work Phone: [facility] 06-12-2022 14:23-0400 Systolic blood pressure 133 mm[Hg] Steve Yeison MBBS Work Phone: [facility] 05-20-2022 15:21-0400 Body temperature 97.9 [degF] Gian Villatoro MD Work Phone: 2(193)899-255193 [place] [address] 05-20-2022 15:21-0400 Diastolic blood pressure 64 mm[Hg] Gian Villatoro MD Work Phone: 0(932)511-907193 [place] [address] 05-20-2022 15:21-0400 Heart rate 55 /min Gian Villatoro MD Work Phone: 3(648)708-729393 [place] [address] 05-20-2022 15:21-0400 Respiratory rate 15 /min Gian Villatoro MD Work Phone: 0(415)822-606893 [place] [address] 05-20-2022 15:21-0400 SaO2% (BldA) [Mass fraction] 95 % Gian Villatoro MD Work Phone: 5(555)783-871193 [place] [address] 05-20-2022 15:21-0400 Systolic blood pressure 145 mm[Hg] Gian Villatoro MD Work Phone: 0(585)284-456393 [place] [address] 05-19-2022 12:15-0400 Body mass index (BMI) [Ratio] 35.87 kg/m2 Gian Villatoro MD Work Phone: 3(070)016-481193 [place] [address] 05-19-2022 12:15-0400 Body weight 103.92 kg Gian Villatoro MD Work Phone: 5(393)825-239593 [place] [address] Comment on above: standing scale 05-16-2022 16:19-0400 Body height 170.2 cm Gian Villatoro MD Work Phone: 5(978)665-331393 [place] [address] 10-19-2018 08:44-0500 BMI (Body Mass Index) 26.58 kg/m2 [facility] Work Phone: 10-19-2018 08:44-0500 BP Diastolic 76 mm[Hg] [facility] Work Phone: 10-19-2018 08:44-0500 BP Systolic 144 mm[Hg] [facility] Work Phone: 10-19-2018 08:44-0500 Height 172.7 cm [facility] Work Phone: 10-19-2018 08:44-0500 Pulse (Heart Rate) 92 /min [facility] Work Phone: 10-19-2018 08:44-0500 Pulse Oximetry 99 % [facility] Work Phone: 10-19-2018 08:44-0500 Respiratory Rate 16 /min [facility] Work Phone: 10-19-2018 08:44-0500 Weight 79.29 kg [facility] Work Phone: 10-12-2018 09:50-0500 BMI (Body Mass Index) 27.24 kg/m2 [facility] Work Phone: 10-12-2018 09:50-0500 Body Temperature 98.6 [degF] [facility] Work Phone: 10-12-2018 09:50-0500 BP Diastolic 80 mm[Hg] [facility] Work Phone: 10-12-2018 09:50-0500 BP Systolic 157 mm[Hg] [facility] Work Phone: 10-12-2018 09:50-0500 Height 169.5 cm [facility] Work Phone: 10-12-2018 09:50-0500 Pulse (Heart Rate) 94 /min borismatthew [facility] Work Phone: 10-12-2018 09:50-0500 Weight 78.29 kg [facility] Work Phone: Encounters Encounter Date Encounter Type Care Provider Facility Start: 03-24-2024 End: 03-24-2024 Patient encounter procedure Angel Carpio [facility],PharmD Pharm[facility] [place] Start: 03-24-2024 End: 03-24-2024 ambulatory JOHNNA BRINK [...] Start: 03-02-2024 End: 03-02-2024 ambulatory Meka Munoz [facility] [place] Start: 03-02-2024 End: 03-02-2024 Patient encounter procedure Meka Munoz [facility] Start: 03-01-2024 ambulatory ZULY AICHHOLZ Facility: [facility] Start: 03-01-2024 End: 03-01-2024 ambulatory JOHNNA BRINK Not Available Start: 02-26-2024 [facility] Start: 02-26-2024 ambulatory [facility] Start: 02-26-2024 End: 02-26-2024 Office outpatient new 30 minutes Candie Almaguer MD Work Phone: [employer] [facility] Comment on above: Heart failure, diast olic, acute (Primary Dx) Start: 02-25-2024 End: 02-25-2024 ambulatory FIDELINA SANCHEZ Not Available Start: 02-23-2024 End: 02-23-2024 ambulatory PALMA PALACIOS Not Available Start: 02-11-2024 End: 02-11-2024 ambulatory ZULY BRUNO Not Available Start: 01-16-2024 Encounter for other preprocedural examination KELVIN PACHECO [facility] Start: 01-16-2024 End: 01-23-2024 Evaluation and management of inpatient KEVIN SAGE Facility:[facility] Start: 01-16-2024 End: 01-23-2024 Evaluation and management of inpatient Kevin Sage MD Work Phone: [email or web address] Comment on above: Pleural effusion on right Start: 01-16-2024 End: 01-23-2024 Patient encounter status Kevin Sage MD Work Phone: [facility] Work Phone: Start: 01-12-2024 End: 01-12-2024 ambulatory Angel Fete RPh,PharmD [facility] [place] Start: 01-12-2024 End: 01-12-2024 Patient encounter procedure Angel Fete RPh,PharmD Pharmacy Outpatient [facility] [place] Start: 01-08-2024 Clinisync Result Encounter Generic External Data Provider [facility] External Department Unsolicited Start: 01-08-2024 Clinisync Result Encounter Generic External Data Provider [facility] External Department Unsolicited Start: 01-06-2024 End: 01-06-2024 ambulatory ZULY BRUNO Not Available Start: 01-06-2024 End: 01-06-2024 Office outpatient visit 25 minutes Zuly Bruno [employer] DEPARTMENT CHAIR Work Phone: [facility] Comment on above: Bilateral lower extr emity edema (Primary Dx); 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); Shortness of breath Start: 01-01-2024 Clinisync Result Encounter Generic External Data Provider [facility] External Department Unsolicited Start: 01-01-2024 Clinisync Result Encounter Generic External Data Provider [facility] External Department Unsolicited Start: 11-03-2023 End: 11-03-2023 ambulatory ZULY BRUNO Not Available Start: 10-06-2023 ambulatory Angel Carpio [facility],PharmD Pharm[facility] [place] Start: 10-06-2023 Patient encounter procedure Angel Carpio [facility],PharmD [facility] [place] Start: 09-29-2023 ambulatory [facility] Start: 09-24-2023 ambulatory [facility] Start: 09-23-2023 ambulatory HAKEEM ALAMO Facility :[facility] Start: 09-15-2023 [facility] Start: 08-28-2023 End: 09-11-2023 Evaluation and management of inpatient KEVIN NIKI Facility:[facility] Start: 08-28-2023 End: 09-11-2023 Evaluation and management of inpatient Steve S Yeison MBBS Work Phone: [id number] Start: 08-28-2023 ambulatory STEVE S YEISON Facility:[facility] Start: 08-28-2023 End: 08-28-2023 Office outpatient visit 25 minutes Steve S Yeison MBBS Work Phone: [facility] Comment on above: Immunosuppressed sta tus (Primary Dx); Kidney replaced by transplant; Aftercare following organ transplant; High risk medication use; Other general symptoms and signs; Abnormal blood chemistry; Hypertension secondary to other renal disorders Start: 08-19-2023 ambulatory Meka rueda [facility] [place] Start: 08-19-2023 Patient encounter procedure Meka Munoz [facility] [place] Start: 06-12-2023 ambulatory SELF SELF Facility:[facility] Start: 06-12-2023 End: 06-12-2023 Office outpatient visit 25 minutes Steve S Yeison MBBS Work Phone: [facility] Comment on above: 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) Start: 06-10-2023 ambulatory Maren Bar RPh,PharmD [facility] [place] Start: 06-10-2023 Patient encounter procedure Maren Bar RPh,PharmD [facility] [place] Start: 05-26-2023 [facility]ulatory [facility] Start: 04-28-2023 End: 04-29-[address] DOCTOR EVANS Facility:[facility] Start: 04-13-2023 End: 04-13-2023 ambulatory [facility] Start: 03-12-2023 ambulatory Angel Fete RPh,PharmD Pharm[facility] [place] Start: 03-12-2023 Patient encounter procedure Angel Fete RPh,PharmD [facility] [place] Start: 03-10-2023 ambulatory Angel Fete RPh,PharmD Pharmacy Outpatient [facility] [place] Start: 03-10-2023 Patient encounter procedure Angel Fete RPh,PharmD [facility] [place] Start: 03-02-2023 End: 03-03-[address] DOCTOR EVANS Facility:[facility] Start: 01-16-2023 End: 01-16-2023 Office outpatient visit 25 minutes Daisha Max DO Work Phone: [facility] Comment on above: Abnormal blood chemi stry [...] MD Work Phone: [facility] Comment on above: BPH with obstruction /lower urinary tract symptoms (Primary Dx); Encounter for screening for malignant neoplasm of prostate Start: 08-28-2022 End: 08-29-2022 ambulatory ROB ZULY TORRESDIONIOmer Facility:[facility] Start: 08-14-2022 End: 08-15-[address] DOCTOR EVANS Facility:[facility] Start: 07-07-2022 End: 07-07-2022 Patient encounter procedure Ryan Yepez MD Work Phone: [facility] Comment on above: Other hydronephrosis (Primary Dx); [...] MD Work Phone: [facility] Comment on above: Other hydronephrosis (Primary Dx) [...] Phone: [facility] Comment on above: Immunosuppressed sta [...] GEORGE ALEXANDER Facility:[facility] Start: 03-14-2022 ambulatory Comfort Che Miguel [facility] Work Phone: [facility] Start: 03-14-2022 Patient encounter procedure Comfort Chinedu Rivera [facility] Work Phone: [facility] Start: 06-14-2021 End: 06-14-2021 ambulatory Comfort Rivera [facility] Work Phone: [facility] Start: 06-14-2021 Patient encounter procedure Comfort Rivera [facility] Work Phone: [facility] Start: 01-20-2020 End: 01-27-2020 Patient encounter procedure PEPE CASE Facility:[facility] Start: 01-06-2020 End: 01-07-2020 Patient encounter procedure [facility] Start: 01-06-2020 End: 01-06-2020 Subsequent hospital visit by physician [facility] Start: 10-24-2019 End: 10-25-2019 [facility] Start: 10-24-2019 End: 10-24-2019 Subsequent hospital visit by physician [facility] Start: 08-27-2019 End: 08-28-2019 Patient encounter procedure [facility] Start: 08-27-2019 End: 08-27-2019 Subsequent hospital visit by physician [facility] Start: 08-08-2019 End: 08-09-2019 [facility] Start[facility] 08-08-2019 End: 08-08-2019 Subsequent hospital visit by physician [facility] Start: 08-03-2019 End: 08-04-2019 [facility] Start: 08-03-2019 End: 08-03-2019 Subsequent hospital visit by physician [facility] Start: 08-01-2019 End: 08-02-2019 Patient encounter procedure [facility] Start: 08-01-2019 End: 08-01-2019 Subsequent hospital visit by physician [facility] Start: 06-10-2019 End: 06-11-2019 Patient encounter procedure RENA GUDINO [facility] Start: 06-01-2019 End: 06-02-2019 [facility] Start: 01-14-2019 End: 01-15-2019 Patient encounter procedure RENA TERESE [facility] Start: 11-17-2018 End: 11-17-2018 Patient encounter procedure Fidelina Pantojaman [facility] Pre Transplant Office Comment on above: Social Work Follow-u p Start: 10-19-2018 End: 10-19-2018 Patient encounter [facility] Pre Transplant Office Comment on [...] Start: 10-13-2018 End: 10-13-2018 Patient encounter procedure [facility] Pre Transplant Office Comment on above: Reschedule Outside Medical Allan rds Request Start: 10-12-2018 End: 10-12-2018 Patient encounter procedure Sophie Raeann [facility] Pre Transplant Office Comment on above: Alcoholic cirrhosis, unspecified whether ascites present (Primary Dx); Pre-transplant evaluation for liver transplant Start: 10-12-2018 End: 10-12-2018 Office outpatient new 60 minutes Alfredito Restrepo Work Phone: [facility] Comment on above: Alcoholic cirrhosis, unspecified whether ascites present; ESRD (end stage renal disease) on dialysis; Pre-transplant evaluation for liver transplant Start: 10-06-2018 End: 10-06-2018 Patient encounter procedure Yovani Orr Work Phone: Department of Radiology Comment on above: Canceled (Insurance Company Redirected Pt) Start: 10-05-2018 Patient encounter status Comfort Rivera [facility] Work Phone: [facility] Procedures Date Procedure Procedure Detail Performing [...] on above: Performed By: #### X M ####[facility] (DEFAULT)[address] [place] [address] Start: 01-22-2024 Assay of magnesium Just in [...] Start: 01-20-2024 ITRACONAZOLE LEVEL Jennifer norbert Alarcon [facility] Work Phone: Start: 01-20-2024 Oscillating [...] nos quantifica tion each organism Fidelina Alarcon [facility] Work Phone: Start: 01-18-2024 Echocardiography ZULY A [...] AURIS SCREEN BY PCR Carol Ann Capps PEDIATRIC ORTHODONTIST-COMMUNITY SERVICE TECHNICIAN Work Phone: Start: 01-08-2024 ALL CBC WITH [...] Phone: Start: 09-06-2023 Assay of magnesium Milton eKlly MD Work Phone: Start: 09-06-2023 Hepatic function [...] Phone: Start: 09-03-2023 Hepatic function panel Evan eKlly MD Work Phone: Start: 09-02-2023 Brnchsc incl [...] AURIS SCREEN BY PCR Carol Ann Capps PEDIATRIC ORTHODONTIST-COMMUNITY SERVICE TECHNICIAN Work Phone: Start: 08-28-2023 CBC AND ELECTRONIC [...] above: Performed By: #### C MP #### [facility] [address] [place] [address] Dr. Dwight Waters Start: 07-07-2022 Rmvl nfros tube req fluoro guidance Ryan Yepez MD Work Phone: Start: 06-27-2022 Ct abdomen & pelvis w/o contrast material Evan Byrd MD Work Phone: Start: 06-12-2022 Culture bct isol&prs mptv id isolate ea urine Steve Munoz MB Work Phone: Start: 06-12-2022 EXTRA MICRO Steve S Nor i MBBS Work Phone: Start: 06-12-2022 Hemoglobin glycosylated a1c Steve Farrari MB Work Phone: Start: 06-12-2022 Hepatic function panel Yovani Orr MD Work Phone: Start: 06-12-2022 URINALYSIS REFLEX TO CULTURE Steve Munoz [facility] Work Phone: Start: 05-20-2022 Urography [...] magnesium Beckie Gamez MD Work Phone: Start: 06-18-2022 Plmt nephrostomy cat h prq new access [...] Phone: Start: 08-03-2019 Hemoglobin glycosylated a1c ROB JONNIEMANI Start: 08-03-2019 Hemoglobin glycosylated a1c Rob Jonniemani Work Phone: Start: 08-01-2019 Blood count hemoglobin Rob Jonniemani Work Phone: Start: 07-25-2019 History of renal transplant De ceased-donor kidney transplant recipient Comfort Rivera [facility] Work Phone: Start: 06-10-2019 HEMOGLOBIN AND HEMAT OCRIT, BLOOD ROB JO-ANNI Start: 06-01-2019 Blood count hemoglobin ROB JO-ANNI Start: 03-22-2019 Lipid 1996 panel - S [...] End: 10-12-2018 Assay of ethanol Yovani Mejias [employer] Work Phone: Start: 10-12-2018 End: 10-12-2018 Assay of ferritin Yovani Mejias [employer] Work Phone: Start: 10-12-2018 End: 10-12-2018 Assay of iron Yovani Orr Work Phone: Start: 10-12-2018 End: 10-12-2018 Assay of parathormone Yovani Mejias Consulted Phone: Start: 10-12-2018 End: 10-12-2018 Assay of [...] transplant Dece ased-donor kidney transplant recipient Steve S Yeison MBBS Work Phone: Plan of Treatment Date Care Activity Detail Author Start: 09-20-2029 Screening for malignant neoplasm of colon [facility] Start: 03-28-2025 Potassium [Moles/volume] in Serum or Plasma POTASSIUM [facility] Start: 03-21-2025 Potassium [Moles/volume] in Serum or Plasma POTASSIUM [facility] Start: 02-28-2025 Potassium [Moles/volume] in Serum or Plasma POTASSIUM [facility] Start: 01-23-2025 Potassium [Moles/volume] in Serum or Plasma POTASSIUM [facility] Start: 08-31-2024 Screening for malignant neoplasm of lung [facility] Start: 06-17-2024 End: 06-17-2024 ambulatory [facility] Start: 06-17-2024 End: 06-17-2024 Patient encounter procedure [facility] Start: 03-22-2024 Fasting lipid profile LIPID SCREENING [facility] Start: 03-22-[address] [facility] Start: 02-26-2024 End: 02-26-2024 Patient encounter procedure 02/26/2024 9:30 AM EDT Office Visit [facility] [address] [place] [address] Candie Almaguer MD [address] [place] [id number] [facility] Start: 02-11-2024 End: 02-11-2024 Patient encounter procedure 02/11/2024 10:30 AM EDT Office Visit [facility] [address] [place] [address] Zuly Bruno NP [address] [place] [address] [facility] Start: 02-09-2024 End: 02-09-2024 Telemedicine consultation with patient 02/09/2024 3:30 PM EDT Telemedicine Infectious Diseases Care [facility] Outpatient Care [address] [facility] [address] [place] [id number] Hakeem Alamo MD [address] [facility] [address] [place] [address] Infectious Diseases Care [facility] Outpatient Care Start: 01-15-2024 End: 01-15-2024 ambulatory [facility] Start: 01-15-2024 End: 01-15-2024 Patient encounter procedure [facility] Start: 01-06-2024 End: 01-06-2026 Echocardiogram 2D complete Echocardiogram 2D complete Echocardiography Routine DARLENE (obstructive sleep apnea) Primary hypertension (CMS/HCC) Bilateral lower extremity edema Shortness of breath Expected: 01/06/2024 (Approximate), Expires: 01/06/2026 [facility] Work Phone: Comment on above: Expected: 01/06/2024 (Approximate), Expi res: 01/06/2026 Start: 01-06-2024 End: 01-06-2024 Patient encounter procedure 01/06/2024 9:00 AM EST Office Visit [facility] [address] [place] [address] Zuly Bruno NP [address] [place] [address] [facility] Start: 12-08-2023 End: 09-07-2024 CT Chest WO contrast [facility] Work Phone: Start: 12-01-2023 COVID-19 VACCINE (2 - Moderna risk series) COVID-19 VACCINE (2 - Moderna risk series) [facility] Start: 09-23-2023 End: 09-23-2023 ambulatory Infectious Diseases Care [facility]patient [facility] Start: 09-23-2023 End: 09-23-2023 Telemedicine consultation with patient 09/23/2023 4:00 PM EDT Telemedicine Infectious Diseases Care [facility] Outpatient Care [address] [place] [address] Hakeem Alamo MD [address] [place] [address] Infectious Diseases Care [facility]patient [facility] Start: 09-15-2023 End: 09-10-[address] [facility] Start: 08-25-2023 End: 08-25-2024 ALLOSCREEN RECIPIENT (POST TX PRA) ALLOSCREEN RECIPIENT (POST TX PRA) Lab Routine Kidney replaced by transplant Aftercare following organ transplant Immunosuppressed status High risk medication use Other general symptoms and signs Abnormal blood chemistry Expected: 08/25/2023, Expires: 08/25/2024 [facility] Comment on above: Expected: 08/25/2023, Expires: Start: 07-31-[address] [facility] Start: 06-12-2023 End: 06-12-2023 Patient encounter procedure 06/12/2023 Office Visit Transplant Surgery Steve Munoz MBBS [address] [place] [address] [facility] Start: 03-11-2023 End: 03-11-2023 Telemedicine consultation with patient 03/11/2023 Telemedicine Urology Ryan Yepez MD [address] [facility] [address] [place] [address] [facility] Start: 01-16-2023 End: 01-16-2023 Patient encounter procedure 01/16/2023 Office Visit Transplant Surgery [facility] Start: 10-31-2022 End: 10-31-2022 Patient encounter procedure 10/31/2022 Office Visit Transplant Surgery Steve Munoz, UL [address] [place] [address] [facility] Start: 09-10-2022 End: 09-10-2023 PSA screening PSA, SCREENING Lab Routine BPH with obstruction/lower urinary tract symptoms Encounter for screening for malignant neoplasm of prostate Expected: 09/10/2022 (Approximate), Expires: 09/10/2023 [facility] Comment on above: Expected: 09/10/2022 (Approximate), Expi res: 09/10/2023 Start: 08-11-2022 End: 08-11-2022 Patient encounter procedure 08/11/2022 Office Visit Urology Ryan Yepez MD [address] [facility] [address] [place] [id number] Urolog Eye [facility] Start: 07-31-[address] [facility] Start: 07-07-2022 End: 07-07-2022 Patient encounter procedure 07/07/2022 Office Visit Ryan Webster MD [address] [facility] [address] [place] [address] Urology Eye [facility] Start: 07-07-2022 End: 07-07-20[address] UROLOGY [facility] Comment on above: Expected: 07/07/2022, Expires: 3 1 Occurrences starti ng 07/07/2022 until 07/07/2022 Start: 06-27-2022 End: 06-27-2022 Patient encounter procedure 06/27/2022 Office Visit Urology Ryan Yepez MD [address] [facility] [address] [place] [id number] [facility] Start: 06-27-2022 End: 06-27-2023 Basic metabolic 2000 panel - Serum or Plasma BASIC METABOLIC PANEL Lab Routine Other hydronephrosis Expected: 06/27/2022, Expires: 06/27/2023 [facility] Comment on above: Expected: 06/27/2022, Expires: 3 Start: 06-27-2022 End: 06-27-2022 Patient encounter procedure 06/27/2022 Appointment Computerized Tomography Scan Ryan Yepez MD [address] [facility] [address] [place] [id number] Department of Radiology Start: 06-15-2022 End: 05-16-2023 CT Abdomen and Pelvis WO contrast CT ABDOMEN/PELVIS WITHOUT CONTRAST Imaging Routine FAYE (acute kidney injury) Expected: 06/15/2022 (Approximate), Expires: 05/16/2023 [facility] Work Phone: Comment on above: Expected: 06/15/2022 (Approximate), Expi res: 05/16/2023 Start: 06-12-2022 End: 06-12-2022 Patient encounter procedure 06/12/2022 Office Visit Transplant Surgery Steve Munoz, LU [address] [place] [address] [facility] Start: 06-11-2022 End: 06-11-2023 BK VIRUS DNA QN, PCR, PLASMA BK VIRUS DNA QN, PCR, PLASMA Lab Routine Kidney replaced by transplant Liver replaced by transplant Abnormal blood chemistry Expected: 06/11/2022, Expires: 06/11/2023 [facility] Comment on above: Expected: 06/11/2022, Expires: 3 Start: 06-04-2022 End: 06-04-2022 Patient encounter procedure 06/04/2022 Office Visit Interventional Radiology [facility] Start: 10-18-2021 End: 10-18-2021 Patient encounter procedure 10/18/2021 Office Visit Transplant Surgery Steve Munoz, LU [address] [place] [address] [facility] Start: 07-31-2021 Influenza vaccination INFLUENZA VACCINE (#1) [facility] Start: 07-26-2021 End: 07-26-2021 Patient encounter procedure 07/26/2021 Office Visit Transplant Surgery [facility] Start: 2021 Prostate specific antigen measurement [facility] Start: 2021 Screening for malignant neoplasm of lung LUNG CANCER SCREENING [facility] Start: 2021 Zoster vaccine hzv live for subcutaneous use ZOSTER (SHINGLES) VACCINE (1 of 2) [facility] Start: 09-20-2020 Colonoscopy COLORECTAL CANCER SCREENING DISCUSSION [facility] Start: 09-20-2020 Screening for malignant neoplasm of colon [facility] Start: 07-31-2019 Influenza vaccination Flu vaccine (#1) [place] Start: 05-22-2019 Annual Wellness Visit (AWV) Annual Wellness Visit (AWV) [place] Start: 04-18-2019 End: 10-19-2019 Ultrasonography of abdomen US ABDOMEN RUQ/LIVER/GB Routine Cirrhosis of liver without ascites, unspecified hepatic cirrhosis type Expected: 04/18/2019 (Approximate), Expires: 10/19/2019 [facility] Work Phone: Comment on above: Expected: 04/18/2019 (Approximate), Expi res: 10/19/2019 Start: 01-25-2019 End: 01-25-2019 Ambulatory 01/25/2019 Office Visit Gastroenterology Christin Elizabeth, PEDIATRIC ORTHODONTIST-DATA SYSTEMS MANAGER [address] [place] [address] Division of Gastroenterology and Hepatology [place] Start: 11-19-2018 End: 11-19-2018 Ambulatory 11/19/2018 Appointment Pulmonary Diagnostics [facility] Start: 11-19-2018 End: 11-19-2018 Ambulatory [facility] Start: 10-19-2018 End: 10-19-2018 Ambulatory Ultrasound Jakob Start: 10-12-2018 End: 10-12-2019 Hemoglobin A1c/Hemoglobin.total mass fraction (Bld) HEMOGLOBIN A1C Routine Alcoholic cirrhosis, unspecified whether ascites present Pre-transplant evaluation for liver transplant Expected: 10/12/2018, Expires: 10/12/2019 [facility] Work Phone: Comment on above: Expected: 10/12/2018, Expires: 9 Start: 10-12-2018 End: 10-12-2019 TYPE AND SCREEN - NOT FOR TRANSFUSION TYPE AND SCREEN - NOT FOR TRANSFUSION Routine Alcoholic cirrhosis, unspecified whether ascites present Pre-transplant evaluation for liver transplant Expected: 10/12/2018, Expires: 10/12/2019 [facility] Work Phone: Comment on above: Expected: 10/12/2018, Expires: 9 Start: 07-31-2018 Influenza vaccination INFLUENZA VACCINE (#1) [facility] Work Phone: Start: 2011 Fasting lipid profile LIPID SCREENING [facility] Work Phone: Start: 2011 Lipid screen Lipid screen [place] Start: 1990 DTaP/Tdap/Td vaccine (1 - Tdap) DTaP/Tdap/Td vaccine (1 - Tdap) [place] Start: 1990 Hepatitis B vaccination HEP B VACCINE (1 of 3 - 19+ 3-dose series) [facility] Start: 1990 Hepatitis B Vaccine (1 of 3 - Risk Recombivax 3-dose series) Hepatitis B Vaccine (1 of 3 - Risk Recombivax 3-dose series) [place] Start: 1990 Third diphtheria, tetanus and acellular pertussis (DTaP) vaccination [facility] Start: 1990 Zoster vaccine hzv live for subcutaneous use ZOSTER (SHINGLES) VACCINE (1 of 2) [facility] Start: 1990 [facility] Start: [address] [facility] Start: 1986 HIV screen HIV screen [place] Start: 02-17-1984 HIV screening HIV SCREENING DISCUSSION [facility] Work Phone: Start: 1983 COVID-19 VACCINE (1) COVID-19 VACCINE (1) [facility] Start: 1982 DTaP/Tdap/Td vaccine (1 - Tdap) DTaP/Tdap/Td vaccine (1 - Tdap) [place] Start: 1977 Pneumococcal 0-64 years Vaccine (1 of 3 - PCV13) Pneumococcal 0-64 years Vaccine (1 of 3 - PCV13) [place] Start: 1977 PNEUMOCOCCAL VACCINE SERIES (1 - PCV) PNEUMOCOCCAL VACCINE SERIES (1 - PCV) [facility] Start: 1977 PNEUMOCOCCAL VACCINE SERIES (1 of 2 - PCV) PNEUMOCOCCAL VACCINE SERIES (1 of 2 - PCV) [facility] Start: 1977 [facility] Start: 02-17-1976 COVID-19 VACCINE (#1) COVID-19 VACCINE (#1) [facility] Start: 02-17-1976 [facility] Start: 1971 COVID-19 VACCINE (#1) COVID-19 VACCINE (#1) [facility] Start: 1971 Hepatitis B vaccination HEP B VACCINE (1 of 3 - 3-dose series) [facility] Start: 1971 Medicare Annual Wellness (AWV) Medicare Annual Wellness (AWV) [facility] Start: 1971 Screening for malignant neoplasm of colon [facility] Start: [address] [facility] BK VIRUS DNA QN, PCR , PLASMA BK VIRUS DNA QN, PCR, PLASMA Lab Routine Kidney replaced by transplant Liver replaced by transplant Abnormal blood chemistry 06/12/2022 3:[address] [facility] CALCULI, URINARY (KIDNEY STONE) CALCULI, URINARY (KIDNEY STONE) Fluids Routine 05/19/2022 8:[address] [facility] Work Phone: CANNABINOIDS, QUANT (URINE)THC CONFIRMATION CANNABINOIDS, QUANT (URINE)THC CONFIRMATION Routine Alcoholic cirrhosis, unspecified whether ascites present ESRD (end stage renal disease) on dialysis Pre-transplant evaluation for liver transplant 10/12/2018 12:57 PM [facility] Work Phone: End: 09-10-2024 CHEM 6 (LYTES, BUN CREA) [facility] EBV VCA IGG AB EBV VCA IGG AB R outine Alcoholic cirrhosis, unspecified whether ascites present ESRD (end stage renal disease) on dialysis Pre-transplant evaluation for liver transplant 10/12/2018 12:57 PM [facility] Work Phone: Fungus identified in Unspecified specimen by Culture [facility] HLA TYPING (SOLID ORGAN) HLA TYPING (SOLID ORGAN) Routine Alcoholic cirrhosis, unspecified whether ascites present ESRD (end stage renal disease) on dialysis Pre-transplant evaluation for liver transplant 10/12/2018 12:57 PM [facility] Work Phone: HSV 1 AND 2 IGG ANTIBODY HSV 1 AND 2 IGG ANTIBODY Routine Alcoholic cirrhosis, unspecified whether ascites present ESRD (end stage renal disease) on dialysis Pre-transplant evaluation for liver transplant 10/12/2018 12:57 PM [facility] Work Phone: 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 specific culture [facility] PLACEMENT NEPHROSTOM Y CATHETER PERCUTANEOUS W/ IMAGE GUIDANCE PLACEMENT NEPHROSTOMY CATHETER PERCUTANEOUS W/ IMAGE GUIDANCE Imaging Routine Hydronephrosis due to obstruction of ureteral orifice FAYE (acute kidney injury) 05/17/2022 11:[address] [facility] ND POST VOID RESIDUAL ND POST VO ID RESIDUAL ND - OFFICE PERFORMED Routine BPH with obstruction/lower urinary tract symptoms Ordered: 09/10/2022 [facility] Comment on above: Ordered: 09/10/2022 PTH INTACT PTH INTACT Routi ne Alcoholic cirrhosis, unspecified whether ascites present ESRD (end stage renal disease) on dialysis Pre-transplant evaluation for liver transplant 10/12/2018 12:57 PM [facility] Work Phone: RUBEOLA IGG AB (IMMU NE STATUS) RUBEOLA IGG AB (IMMUNE STATUS) Routine Alcoholic cirrhosis, unspecified whether ascites present ESRD (end stage renal disease) on dialysis Pre-transplant evaluation for liver transplant 10/12/2018 12:57 PM [facility] Work Phone: End: 01-16-2024 Standard ECG ECG ECG Routine One Time for 1 Occurrences starting 01/16/2024 until 01/16/2024 [facility] Comment on above: One Time for 1 Occurrences starting 12/31 until 01/16/2024 End: 09-10-2024 TACROLIMUS LEVEL, TROUGH (PRE DRUG LEVEL) [facility] VARICELLA IGG AB (IM M STATUS) VARICELLA IGG AB (IMM STATUS) Routine Alcoholic cirrhosis, unspecified whether ascites present ESRD (end stage renal disease) on dialysis Pre-transplant evaluation for liver transplant 10/12/2018 12:57 PM [facility] Work Phone: Immunizations Immunization Date Immunization Notes Care Provider Zeeshan yi 11-03-2023 influenza virus vacc ine, unspecified formulation Generic Provider [facility] 11-03-2023 Moderna SARS-CoV-2 50mcg/0.5mL Booster Generic Provider [facility] Payers Date Payer Category Payer Unknown [id number] 2019 Unknown [facility] [id number] 2019-Present [id number] .[id number] 2018 Medicaid [place] [facility] DEPT OF JOB xxxxxxxxxxxx 2018-Present [phone] [address] [place] [address] xxxxxxxxxxxx [id number] .[id number] 2018 Medicaid MEDICAID MEDICAI D [id number] 2018-Present [address] [place] [address] [id number] .[id number] 2018 Medicaid [id number] 1.13.172.2.7.3 .[id number] 2018 Medicare MEDICARE MEDICAR E PART A AND B xxxxxxxxxxx 2018-Present [phone] [address] [address] [place] [address] xxxxxxxxxxx [id number] .[id number] 2018 Medicare [id number] 2018 Medicare MEDICARE MEDICAR E A AND B [id number] 2018-Present [address] [place] [address] [id number] [id number].3 .[id number] 2018 Medicare [id number]. 1.13.172.2.7.3 .020913.315 1971 Unknown [id number] 2.16.840.1.107929.3.579.2.173 1971 Unknown [id number] 2.16.840.1.005240.3.579.2.173 1971 Unknown [id number] 2.16.840.1.819905.3.579.2.173 1971 Unknown [id number] 2.16.840.1.961838.3.579.2.173 1971 Unknown [id number] 2.16.840.1.156385.3.579.2.173 1971 Unknown [id number] 2.16.840.1.077833.3.579.2.173 1971 Unknown [id number] 2.16.840.1.415690.3.579.2.173 1971 Unknown [id number] 2.16.840.1.097399.3.579.2.173 1971 Unknown [id number] 2.16.840.1.814781.3.579.2.647 1971 Unknown [id number] 2.16.840.1.546132.3.579.2.593 1971 Unknown [id number] 2.16.840.1.163336.3.579.2.593 1971 Unknown [id number] 2.16.840.1.639159.3.579.2.593 1971 Unknown [id number] 2.16.840.1.415356.3.579.2.593 1971 Unknown [id number] 2.16.840.1.425055.3.579.2.593 1971 Unknown [id number] 2.16.840.1.972188.3.579.2.593 1971 Unknown [id number] 2.16.840.1.486225.3.579.2.593 1971 Unknown [id number] 2.16.840.1.231946.3.579.2.593 1971 Unknown [id number] 2.16.840.1.357913.3.579.2.593 1971 Unknown [id number] 2.16.840.1.891728.3.579.2.593 1971 Unknown [id number] 2.16.840.1.332250.3.579.2.593 1971 Unknown [id number] 2.16.840.1.632975.3.579.2.593 1971 Unknown [id number] 2.16.840.1.038163.3.579.2.593 1971 Unknown [id number] 2.16.840.1.605036.3.579.2.593 1971 Unknown [id number] 2.16.840.1.665551.3.579.2.593 1971 Unknown [id number] 2.16.840.1.042625.3.579.2.125 9 1971 Unknown [id number] 2.16.840.1.097232.3.579.2.125 9 1971 Unknown [id number] 2.16.840.1.227584.3.579.2.125 9 1971 Unknown [id number] 2.16.840.1.251684.3.579.2.125 9 1971 Unknown [id number] 2.16.840.1.674945.3.579.2.125 9 1971 Unknown [id number] 2.16.840.1.842529.3.579.2.125 9 1971 Unknown [id number] 2.16.840.1.182425.3.579.2.125 9 1971 Unknown [id number] 2.16.840.1.353646.3.579.2.125 9 1971 Unknown [id number] 2.16.840.1.043684.3.579.2.125 9 1971 Unknown [id number] 2.16.840.1.109496.3.579.2.125 1971 Unknown [id number] 2.16.840.1.750918.3.579.2.125 9 1971 Unknown [id number] 2.16.840.1.725858.3.579.2.125 9 1971 Unknown [id number] 2.16.840.1.365383.3.579.2.125 9 1971 Unknown [id number] 2.16840.1.968814.3.579.2.594 1971 Unknown [id number] 2.16840.1.634913.3.579.2.594 1971 Unknown [id number] 2.16840.1.688092.3.579.2.594 1971 Unknown [id number] 2.16840.1.947901.3.579.2.594 1971 Unknown [id number] 2.16840.1.367557.3.579.2.594 1971 Unknown [id number] 2.840.1.130035.3.579.2.594 1971 Unknown [id number] 2.840.1.485215.3.579.2.594 1971 Unknown [id number] 2.16840.1.517304.3.579.2.594 1971 Unknown [id number] 2.16840.1.929368.3.579.2.594 1971 Unknown [id number] 2.16840.1.783112.3.579.2.594 1971 Unknown [id number] 2.840.1.384084.3.579.2.594 1971 Unknown [id number] 2.16840.1.600639.3.579.2.594 1959 Medicaid [id number] 1959 Medicare [id number] Social History Date Type Detail Facility Start: 07-19-2018 End: 10-19-2018 Tobacco smoking status NHIS Former smoker [facility] Start: 07-19-1988 End: 05-14-2018 History of tobacco use Current smoker [facility] Work Phone: Start: 07-19-1988 End: 05-14-2018 History of tobacco use Cigarette Smoker [facility] Work Phone: Start: 10-19-2018 End: 03-24-2024 Cigarettes smoked current (pack per day) - Reported [facility] End: 07-19-1994 History of tobacco use Chews Tobacco [facility] Work Phone: Start: 1970 Sex Assigned At Not on file [facility] Work Phone: Start: 11-03-2018 Alcohol intake Current non-drinker of alcohol (finding) [place] Start: 06-22-2018 Alcohol Comment Hx of alcoholism [place] Start: 11-03-2018 End: 03-24-2024 Alcohol intake No [facility] Start: 07-19-2018 Tobacco use and exposure Former user [facility] Start: 09-06-2020 End: 03-24-2024 Alcohol intake Ex-drinker (finding) [facility] Start: 07-19-2018 Alcohol Comment stopped 05/14/2018 [facility] Start: 05-05-2022 End: 01-16-2023 Exposure to SARS-CoV-2 (event) Not sure [facility] Start: 07-07-2018 Gender identity Identifies as male gender (finding) [facility] Start: 01-16-2022 Sexual orientation Heterosexual (finding) [facility] Start: 11-03-2023 Tobacco use and [...] Dates [id number] Start: 05-23-2020 [id number] Start: 04-12-2020 [id number] FDA Start: 05-17-2022 Comment on above: Description: Implant time-out completed by intra-procedural staff including this RN, networking technology instructor, and performing physician. The following was completed. [...] goal Clinical Notes 06-14-2021 to 03-24-2024 Melody Reyez - 03/24/2024 4:12 PM EDTTemil Edwards - 03/24/2024 4:12 PM Angie Rajput - 03/24/2024 4:12 PM EDAdeola Reyez - 03/24/2024 4:12 PM EDTTemil Shonto - 03/24/2024 4:12 PM EDTAttachments Note Date & Type Note Facility 03-24-2024 History of Present illness Narrative [facility]: Call Information: Date and Time of Contact: 03/24/2024 4:14 PM Method of Contact: By Phone Contact Type: Prescriptions Contactor: [facility] Contactee: Patient Contact Outcome: Left message Shipping/Pickup: Medication Name: Prograf 0.2mg pack Contact Info: Specialty ([place]) [phone] Jakob [phone] [facility] [phone] David [phone] Bedside Delivery ([facility]) [phone] [facility]: Call Information: Date and Time of Contact: 03/28/2024 3:58 PM Method of Contact: By Phone Contact Type: Prescriptions Contactor: [facility] Contactee: Patient Contact Outcome: Left message and Call back later Shipping/Pickup: Medication Name: Mycophenolate, prograf Contact Info: Specialty ([place]) [phone] [facility] [phone] [facility] [phone] David [phone] Bedside Delivery ([facility]) [phone] [facility]: Call Information: Method of Contact: By Phone Contact Type: Prescriptions Contactor: Patient Contactee: [facility] Shipping/Pickup: Medicare B Refill?: No Medication Name: Mycopheolate 360mg and Prograf Delivery Method: Ship Delivery Location: Home Signature Required: No Receive/Pickup Date: 04/04/2024 Shipping Address: [address] [place] [address] Contact Info: Specialty ([place]) [phone] [facility] [phone] [facility] [phone] David [phone] Bedside Delivery ([facility]) [phone] documented in this encounter [facility] 03-24-2024 History of Present illness Narrative [facility]: Call Information: Date and Time of Contact: 03/24/2024 4:14 PM Method of Contact: By Phone Contact Type: Prescriptions Contactor: [facility] Contactee: Patient Contact Outcome: Left message Shipping/Pickup: Medication Name: Prograf 0.2mg pack Contact Info: Specialty ([place]) [phone] [facility] [phone] [facility] [phone] David [phone] Bedside Delivery ([facility]) [phone] [facility]: Call Information: Date and Time of Contact: 03/28/2024 3:58 PM Method of Contact: By Phone Contact Type: Prescriptions Contactor: [facility] Contactee: Patient Contact Outcome: Left message and Call back later Shipping/Pickup: Medication Name: Mycophenolate, prograf Contact Info: Specialty ([place]) [phone] Jakob [phone] [facility] [phone] David [phone] Bedside Delivery ([facility]) [phone] [facility]: Call Information: Method of Contact: By Phone Contact Type: Prescriptions Contactor: Patient Contactee: [facility] Shipping/Pickup: Medicare B Refill?: No Medication Name: Mycopheolate 360mg and Prograf Delivery Method: Ship Delivery Location: Home Signature Required: No Receive/Pickup Date: 04/04/2024 Shipping Address: [address] [place] [address] [address] Contact Info: Specialty ([place]) [phone] [facility] [phone] [facility] [phone] David [phone] Bedside Delivery ([facility]) [phone] [facility]: Pre-Verification/Specialty Assessment/Disease [...] Review: Within normal limits Contact Info: Specialty ([place]) [phone] Jakob [phone] [facility] [phone] David [phone] Bedside Delivery ([facility]) [phone] documented in this encounter [facility] 03-02-2024 History of Present illness Narrative [...] up del of broth Contact Info: Specialty ([place]) [phone] Jakob [phone] [facility] [phone] David [phone] Bedside Delivery ([facility]) [phone] [facility]: Call Information: Date and Time of Contact: 03/02/2024 3:49 PM Method of Contact: By Phone Contact Type: Prescriptions Contactor: [facility] OP Contactee: Patient Contact Outcome: Left message and Follow-up Shipping/Pickup: Medication Name: Myco 360mg and Prograf 0.2mg Contact Info: Specialty (Yanci) [phone] [facility] [phone] [facility] [phone] David [phone] Bedside Delivery ([facility]) [phone] [facility] OP RX OUTREACH ADVANCED: Call Information: Date and Time of Contact: 03/02/2024 4:08 PM Method of Contact: By Phone Contact Type: Prescriptions Contactor: [facility] OP Contactee: Patient Shipping/Pickup: Medicare B Refill?: No Medication Name: Myco 360 / prograf 0.2 Delivery Method: Ship Delivery Location: Home Signature Required: No Receive/Pickup Date: 03/03/2024 Shipping Address: [address] [place] [address] Contact Info: Specialty (Yanci) [phone] [facility] [phone] [facility] [phone] [facility] [phone] Bedside Delivery ([facility]) [phone] documented in this encounter [facility] 02-26-2024 History of Present illness Narrative [...] presents to the HF Clinic at the [facility] on 02/26/2024 for initial evaluation of [...] Left; Surgeon: Jyoti Bryant MD, PhD; Location: [facility] MAIN OR PLACEMENT NEPHROSTOMY CATHETER PERCUTANEOUS W/ IMAGE GUIDANCE 05/17/2022 Surgeon: Enzo Heart DO; Location: [facility] INTERVENTIONAL RADIOLOGY (VIR) LIVER TRANSPLANT, ORTHOTOPIC N/A 04/12/2020 Laterality: N/A; Surgeon: LU Palma; Location: [facility] SAME DAY SURGERY MAIN OR KIDNEY TRANSPLANT W/O REDDING NEPHRECTOMY N/A 04/12/2020 Laterality: N/A; Surgeon: LU Palma; Location: [facility] SAME DAY SURGERY MAIN OR OTHER SURGICAL [...] qd Antithrombotic: no Statin: no ICD: NA AX SURVEY WORKER: NA CV Test results: ECHOCARDIOGRAM 01/18/2024 (Final) [...] will be BP control. Candie Almaguer M.D. ship keeper Advanced Heart Failure Program Division of Cardiovascular Medicine [facility] [email or web address] ph [phone] fax [phone] documented in this encounter [facility] 03-29-2024 Instructions Marsha Mckeon RN - 02/26/2024 9:30 AM EDT The following instructions were given today: Labs today Follow up with Dr. Almaguer as needed. Your after visit summary (AVS) is viewable in [facility] My Chart. Call RN if you have cardiac questions/concerns M-F 8 to 4:30 ; office # [phone], option 6, then option 2. Guidelines for home management: 1. Continue to monitor weight first thing each morning. 2. Report to the CHF CLINIC ([phone]) any significant weight change. Remember that weight [...] to have labs/tests run outside of the [facility] and you do not hear from us 1-2 days after they are performed, you must call us to ensure we received the results. Office fax # [phone]. No news does not necessarily mean that your tests are normal, it could mean we did not get the results. For questions/updates: please provide your name with spelling, date of and question or update All calls are prioritized and responses researched, if possible, prior to calls being returned. Call Scheduling for any appointment/procedure verification or changes [phone], option 7 or [facility] Heart Schedulers at [phone], option 1. documented in this encounter [facility] 01-23-2024 Nurse Note Jakob wrap & [...] to transport home on home oxygen supply. 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] POST OPERATIVE DIAGNOSIS Post-Op Diagnosis Codes: * High output congestive heart failure [I50.83] PROCEDURE PERFORMED Procedure(s) (LRB): LIGATION ANGIOACCESS AVF (Left) Resection of large aneurysmic vein PRIMARY CLOSURE Yes INTRAOPERATIVE FINDINGS No significant abnormalities SURGEON Surgeons and Role: * Jyoti Bryant MD, PhD - Primary ANESTHESIOLOGIST Anesthesiologist: Celena Tiwari MD; Kehinde Gutierrez MD CHANGE CONTROL ANALYST: David Jasso APRN-CHANGE CONTROL ANALYST Telegraphic Typewriter Installer Assisting: Mini Khan MD SURGICAL STAFF Technical Program Manager: Zoila Alexander RN Relief Technical Program Manager: Marimar Saravia RN Relief Scrub: Briseyda Self [...] patent, patient breathing easily. Report received from president of the [place] and report received from anesthesiology. Pt arrived [...] Axillary block. SURGEON(S): Jyoti Bryant MD, PHD MOISTURE TESTER: Mynor Fall MD ESTIMATED BLOOD LOSS: Minimal. [...] MD, PHD Jyoti Bryant MD, PHD ATTENDING SHANNON/MedQ JOB: [id number] DOC: [id number] Patient has been asleep this shift. He [...] overnight coverage, Jasper Gastelum MD, via pager #[phone] Pt- George Styles. Sarah 1082. TM1. Was wondering if he can have his Melatonin order increased to 6mg. Per pt, he usually takes 8mg at home. -SAMI Duffy #[phone] Tati Charles RN Internal Medicine Daily Progress Note Patient: George Styles, 1970, [id number] Physician: Arelis Mera MD, PGY3, Pager #[phone], TM1 service Assessment/Plan: George Styles is a [...] home amlodipine 5mg CAD: non-obstructive CAD on [facility] 2018. - continue home aspirin 81mg [...] Mera MD Mr. Styles was admitted to [address] [place] [address]. On admission to [facility], from outside facility a dual RN initial assessment of skin condition was performed by Izzy Gutierrez RN and Leroy Singleton RN. Skin Assessment: Skin within defined limits:Yes Jose Score: 20 Wound Vision Pet Technologist images obtained: No LDA Added: No Based [...] station when available. documented in this encounter [facility] 01-23-2024 Nurse Note Home Oxygen Qualification [...] at 4L of oxygen is also required.) [facility] 01-23-2024 History of Present illness Narrative [...] 20 mg Oral Daily Kelvin Pacheco MD, JOSHBS business education professor Transplant nephrology Surgery Post-Op Check Note [...] monitor Leonel Harris DO General Surgery Pager [phone] CM went to bedside to talk with patient. Patient states he has home oxygen through [employer]. He uses 2.5 LNC around the clock. Patient states his brother will bring a tank for discharge. Anticipate patient will discharge tomorrow AM. Brother updated. Girish Oro RN, BSN Clinical [employer] Crewmember Please note that I am a float lead case manager and may not cover the same service every day. Please call the main Case Management office at [phone] for up-to-date coverage. Verified patients identity using [...] Daily Progress Note Patient: George Styles, 1970, [id number] Physician: Yury Ozuna MD, PGY1, Pager #[phone], TM1 service Assessment/Plan: George Styles is a [...] by transplant surgery on 01/22 (NPO at mi, updated type & screen) S/p Liver-Kidney Transplant [...] home amlodipine 5mg CAD: non-obstructive CAD on [facility] 2018. - continue home aspirin 81mg [...] with the Nutrition plan outlined in the Escalator Service Mechanic s note. DVT prophylaxis with lovenox Diet [...] in resident note. Kelvin Pacheco MD, LU business education professor Transplant nephrology Patient seen and examined [...] Oral BID AC Kelvin Pacheco MD, LU business education professor Transplant nephrology Images from the original note were not included. Internal Medicine Daily Progress Note Patient: George Styles, 1970, [id number] Physician: Yury Ozuna MD, PGY1, Pager #[phone], TM1 service Assessment/Plan: George Styles is a [...] home amlodipine 5mg CAD: non-obstructive CAD on [facility] 2018. - continue home aspirin 81mg [...] with the Nutrition plan outlined in the Escalator Service Mechanic s note. DVT prophylaxis with lovenox Diet [...] 611) Ptt/Pt/Inr: 30.6/15.5/1.2 (01/20 611) Doppler US AMEI AVF: Associated attestation - Kelvin Pacheco MD, [...] Provider: Zuly Bruno NP Pharmacy: [facility] Other Comments: Patient reported his Last Home Dose of mycophenolate and tacrolimus was on 01/15/24 at 0700. Medications that need removed from Outside Medication Reconciliation list: Please remove all medications. Please feel free to contact me with any further questions. Name: Heidy Chatman Phone #: [phone] Date/Time: 01/19/2024 12:08 PM Time Spent: 15 minutes Associated attestation - Fidelina Alarcon RPH - 01/19/2024 12:41 PM EST Department of Pharmacy Admission Medication Reconciliation Note Patient: George Styles Room/Bed: 1082/A I have reviewed the home medication list with the Division Superintendent. The home medication list status is: complete. All changes to the home medication list have been updated in IHIS. Updated ENROUTE CONTROLLER Med List: Prior to Admission Medications Prescriptions [...] with any further questions. Name: Fidelina Alarcon [facility] Phone #: [phone] Date/Time: 01/19/2024 12:41 PM Internal Medicine Daily Progress Note Patient: George Styles, 1970, [id number] Physician: Yury Ozuna MD, PGY1, Pager #[phone], UR6 service Assessment/Plan: Acute Hypoxic Respiratory Insufficiency GARCIA, [...] home amlodipine 5mg CAD: non-obstructive CAD on [facility] 2018. - continue home aspirin 81mg [...] with the Nutrition plan outlined in the Escalator Service Mechanic s note. DVT prophylaxis with lovenox Diet [...] 0.4 mg Oral Daily Kelvin Pacheco MD, MBAPOORVA business education professor Transplant nephrology Internal Medicine Daily Progress Note Patient: George Styles, 1970, [id number] Physician: Yury Ozuna MD, PGY1, Pager #[phone], LJ0 service Assessment/Plan: Updates: - continued diuresis with [...] home amlodipine 5mg CAD: non-obstructive CAD on [facility] 2019. - continue home aspirin 81mg [...] with the Nutrition plan outlined in the Escalator Service Mechanic s note. DVT prophylaxis with lovenox Diet [...] in resident note. Kelvin Pacheco MD, LU business education professor Transplant nephrology Pt known to digital editor from previous admissions. Provided emotional and spiritual support. Patient shared about: family support, medical course Rock Dust Sprayer provided: - Supportive presence - Active listening - Validation of feelings/emotions Patient encouraged to request a digital editor as needed. Chaplains are available in-house 24 hours a day and 7 days a week. For urgent matters in [facility], please page [phone]. If the request is not urgent, please enter a consult. Consults are responded to within 24 hours. Senior Staff Rock Dust Sprayer Angie Singh Mdiv, [facility] Burson [phone] [email or web address] On-call TYLOR: hot walker David: 22/06 Pager ,[facility], and Brock Maciel Pager [phone] 01/18/24 1342 Clinical Encounter Type Visited With Patient Visit Type Introduction Pastoral Time Spent 15 min Referral Other (See Comment) (rounding) Spiritual Assessment Emotional Observation Coping well;Anxiety Hope Observation Specific hope focus Support Observation By Family Interventions Provided Active listening;Supportive presence Facilitated Verbalization of feelings;Identifying support system;Identifying Sources of spiritual well-being Explored Expectations;Treatment decisions Auto Mechanic Supervisor Education Auto Mechanic Supervisor Service Available Yes Educated Patient Outcomes [...] interaction. Name: Fidelina Alarcon RPH Phone #: [phone] Date/Time: 01/18/2024 9:56 AM Discharge Planning Patient [...] Yes Name and Contact information: Gian Styles ([phone]) Would you like to add additional adult [...] oxygen?: Yes Oxygen Provider and Contact : [employer] Liter-Flow?: Order for oxygen use?: unknown at [...] patient on Anticoagulation? : No [id number] - [place] [address] - [address] [place] [id number] Assistant To The Dean Does the patient or kiosk sales representative express financial concerns? : No [...] Plan 1. Identified self and role as [employer] Crewmember. 2. Confirmed and updated demographics and treatment team. 3. [employer] Crewmember will continue to follow with medical team for any other additional discharge needs. Kasandra DON RN [facility] [phone] *Please note I am float CM and work Thursday and Thursday every other week. Please call [phone] for assist in my absence. Internal Medicine Daily Progress Note Patient: George Styles, 1970, [id number] Physician: Yury Ozuna MD, PGY1, Pager #[phone], TM1 service Assessment/Plan: Updates: - continue diuresis [...] home amlodipine 5mg CAD: non-obstructive CAD on [facility] 2018. - continue home aspirin 81mg [...] ordered 2D echo. Kevin Sage MD, MADISONN Block Mechanic of Clinical Medicine [facility] documented in this encounter [facility] 01-23-2024 Plan of care note Patient [...] Symptoms (Acute Pain): verbalization of pain descriptors [facility] 01-22-2024 Hospital Discharge instructions Arelis Mera [...] your doctor for further instructions. Please call [phone], Option 1 or [phone] to schedule your appointment with the Heart Failure Clinic. Arelis Mera MD - 01/22/2024 3:08 PM EST You can change your dressing 48 hours from the procedure The following attachments cannot be sent through Care Everywhere.Heart Failure: Avoiding Triggers (Lebanese)Heart Failure: Limiting Sodium (Lebanese)Pain and Pain Control ([facility]) (Lebanese)documented in this encounter [facility] 01-22-2024 Surgery Postoperative evaluation and management note George Feliz Jensen ([id number]) PRE OPERATIVE DIAGNOSIS High output congestive heart failure [I50.83] POST OPERATIVE DIAGNOSIS Post-Op Diagnosis Codes: * High output congestive heart failure [I50.83] PROCEDURE PERFORMED Procedure(s) (LRB): LIGATION ANGIOACCESS AVF (Left) Resection of large aneurysmic vein PRIMARY CLOSURE Yes INTRAOPERATIVE FINDINGS No significant abnormalities SURGEON Surgeons and Role: * Jyoti Bryant MD, PhD - Primary ANESTHESIOLOGIST Anesthesiologist: Celena Tiwari MD; Kehinde Gutierrez MD CHANGE CONTROL ANALYST: David Jasso APRN-CHANGE CONTROL ANALYST Telegraphic Typewriter Installer Assisting: Mini Khan MD SURGICAL STAFF Technical Program Manager: Zoila Alexander RN Relief Technical Program Manager: Marimar Saravia RN Relief Scrub: Briseyda Self Scrub Person: Cinda Mai RN Resident Assisting: Leonel Harris DO Fellow: Miki Mcgowan MD, MBBS COMPLICATIONS None ESTIMATED BLOOD LOSS Minimal SPECIMENS No specimen sent * No specimens in log * Jyoti Bryant MD, PhD January 22, 2024 1:34 PM [facility] Work Phone: 01-22-2024 Nurse Note Arrived to PACU assisted by anesthesiology. Connected to monitors. Turned side to side, OR linens removed, repositioned. Airway patent, patient breathing easily. Report received from president of the [place] and report received from anesthesiology. Pt arrived awake. VSS. Sats slightly low. Pulm rehab used. Sats currently 3lpm @ 93%. Pt states he uses CPAP nocturnally. A&Ox4. Nerve block left arm, elevated. [facility] 01-22-2024 Surgery Postoperative evaluation and management [...] Axillary block. SURGEON(S): Jyoti Bryant MD, PHD MOISTURE TESTER: Mynor Fall MD ESTIMATED BLOOD LOSS: Minimal. [...] Jyoti Bryant MD, PHD ATTENDING SHANNON/Constanza JOB: [id number] DOC: [id number] [facility] 01-22-2024 Plan of care note Patient has been asleep this shift. He continues to deny pain and has been NPO since midnight in preparation of this ligation today. He has his call light in reach and his bed remains low and locked. Problem: Patient Care Overview Goal: Plan of Care Review Outcome: Progressing Flowsheets Taken 01/22/2024 0655 Progress: improving Taken 01/21/2024 194 Plan Of Care Reviewed With: patient [facility] 01-20-2024 Consult note Associated Order (s): IP CONSULT TO SURGERY - TRANSPLANT (RENAL) Images from the original note were not included. TRANSPLANT SURGERY CONSULT NOTE: Consult: 01/20/2024, 4:03 PM R Developer: Starla Morris MD Reason for Consult: Requesting Dr Carson Bryant for AVF revision/closure given new onset high output heart failure George Styles is a 53 y.o. male CURRENT HOSPITALIZATION LOS: Admit Date: 01/16/2024 [facility] Hospital LOS: 4 days George [...] 04/12/2020 Laterality: N/A; Surgeon: LU Palma; Location: [facility] SAME DAY SURGERY MAIN OR KIDNEY TRANSPLANT W/O REDDING NEPHRECTOMY N/A 04/12/2020 Laterality: N/A; Surgeon: LU Palma; Location: [facility] SAME DAY SURGERY MAIN OR OTHER SURGICAL [...] seen and staffed with Dr. Mcgowan fellow conservation educator Thank you, Starla Morris MD Associated attestation - Jyoti Bryant MD, PhD - 01/22/2024 10:54 AM EST Beata Bryant MD, PhD, have independently seen and examined the patient, reviewed the labs, discussed the patient with the fellow/resident and agree with the note. [facility] Work Phone: 01-20-2024 Consult note Associated Order (s): IP CONSULT TO SURGERY - TRANSPLANT (RENAL) Images from the original note were not included. TRANSPLANT SURGERY CONSULT NOTE: Consult: 01/20/2024, 4:03 PM R Developer: Starla Morris MD Reason for Consult: Requesting Dr Carson Bryant for AVF revision/closure given new onset high output heart failure George Styles is a 53 y.o. male CURRENT HOSPITALIZATION LOS: Admit Date: 01/16/2024 [facility] Hospital LOS: 4 days George [...] DAY SURGERY MAIN OR KIDNEY TRANSPLANT W/O REDDING NEPHRECTOMY N/A 04/12/2020 Laterality: N/A; Surgeon: LU [...] soft, mildly distended, incision-clean, dry, intact with ambre Extremities: left arm fistula with thrill palpable [...] seen and staffed with Dr. Mcgowan fellow conservation educator Thank you, Starla Morris MD Associated attestation - Jyoti Bryant MD, PhD - 01/22/2024 10:54 AM EST Beata Bryant MD, PhD, have independently seen and examined the patient, reviewed the labs, discussed the patient with the fellow/resident and agree with the note. Associated Order(s): IP CONSULT TO HEPATOBILIARY [facility]N [facility] Main [...] DAY SURGERY MAIN OR KIDNEY TRANSPLANT W/O REDDING NEPHRECTOMY N/A 04/12/2020 Laterality: N/A; Surgeon: LU Palma; Location: [facility] SAME DAY SURGERY MAIN OR OTHER SURGICAL [...] (order for outpatient) Please SecureChat or Call ([phone]) for any questions. Await attending attestation for final recommendations. Hank Noel MD Division of Gastroenterology, Hepatology, and Nutrition Clinical Fellow, PGY-5 Pager: [phone] For urgent/stat calls or consults 5pm to 7am, please page the on-call GI fellow on [employer]. [facility]--> Internal Medicine--> Gastroenterology, Hepatology, & Nutrition--> 1st Call Fel Alysia For urgent/stat calls or consults 7am to 5pm during the weekend, please page the on-call GI fellow on QArtusLabsa. [facility]--> Internal Medicine--> Gastroenterology, Hepatology, & Nutrition--> All Hep & East Wknd Cons Fel Day For follow up questions regarding this patient 7am to 5pm during the weekday, contact the Hepatology consults fellow or CARLOS A on [employer]. [facility]--> Internal Medicine--> Gastroenterology, Hepatology, & Nutrition--> [...] Estrada MD, MSc documented in this encounter [facility] 01-19-2024 Nurse Note 01/19/24 0900 Vitals [...] rest, 95-96% when talking/moving. Paulette Cordon RN [facility] 01-19-2024 Nurse Note Paged overnight coverage, Jasper Gastelum MD, via pager #[phone] Pt- Mark. Sarah Styles 1082. TM1. Was wondering if he can have his Melatonin order increased to 6mg. Per pt, he usually takes 8mg at home. -SAMI Duffy #[phone] Tati Charles RN [facility] 01-18-2024 Consult note Associated Order (s): IP CONSULT TO HEPATOBILIARY N [facility] Main Hepatology Consult WebExchange --> IM Consult Serv [facility] --> [facility] Main Hepatology consult service Fellow [...] GUIDANCE 05/17/2022 Surgeon: Enzo Heart DO; Location: [facility] INTERVENTIONAL RADIOLOGY (VIR) LIVER TRANSPLANT, ORTHOTOPIC N/A 04/12/2020 Laterality: N/A; Surgeon: LU Palma; Location: [facility] SAME DAY SURGERY MAIN OR KIDNEY TRANSPLANT W/O REDDING NEPHRECTOMY N/A 04/12/2020 Laterality: N/A; Surgeon: LU Palma; Location: [facility] SAME DAY SURGERY MAIN OR OTHER SURGICAL [...] (order for outpatient) Please SecureChat or Call ([phone]) for any questions. Await attending attestation for final recommendations. Hank Noel MD Division of Gastroenterology, Hepatology, and Nutrition Clinical Fellow, PGY-5 Pager: [phone] For urgent/stat calls or consults 5pm to 7am, please page the on-call GI fellow on QGenda. [facility]--> Internal Medicine--> Gastroenterology, Hepatology, & Nutrition--> 1st Call Fel Alysia For urgent/stat calls or consults 7am to 5pm during the weekend, please page the on-call GI fellow on QGenda. [facility]--> Internal Medicine--> Gastroenterology, Hepatology, & Nutrition--> All Hep & East Wknd Cons Fel Day For follow up questions regarding this patient 7am to 5pm during the weekday, contact the Hepatology consults fellow or CARLOS A on QGenda. [facility]--> Internal Medicine--> Gastroenterology, Hepatology, & Nutrition--> [...] (order for outpatient) Michael Estrada MD, MSc [facility] Work Phone: 01-16-2024 Plan of care note Internal Medicine Daily Progress Note Patient: George Styles, 1970, [id number] Physician: Arelis Mera MD, PGY3, Pager #[phone], TM1 service Assessment/Plan: George Styles is a [...] home amlodipine 5mg CAD: non-obstructive CAD on [facility] 2018. - continue home aspirin 81mg [...] MD, on rounds. Signed, Arelis Mera MD [facility] 01-16-2024 Nurse Note Mr. Styles was admitted to [address] [place] [address]. On admission to [facility], from outside facility a dual RN initial assessment of skin condition was performed by Izzy Gutierrez, RN and Leroy Singleton RN. Skin Assessment: Skin within defined limits:Yes Jose Score: 20 Wound Vision Pet Technologist images obtained: No LDA Added: No Based [...] room closest to nurses station when available. [facility] 01-16-2024 History and physical note Images from the original note were not included. Internal Medicine Admission History & Physical Patient: George Styles, 1970, [id number] Physician: Timothy Joseph MD, PGY1, Pager #[phone], TM 1 service Date of face to [...] GUIDANCE 05/17/2022 Surgeon: Enzo Heart DO; Location: [facility] INTERVENTIONAL RADIOLOGY (VIR) LIVER TRANSPLANT, ORTHOTOPIC N/A 04/12/2020 Laterality: N/A; Surgeon: LU Palma; Location: [facility] SAME DAY SURGERY MAIN OR KIDNEY TRANSPLANT W/O REDDING NEPHRECTOMY N/A 04/12/2020 Laterality: N/A; Surgeon: LU Palma; Location: [facility] SAME DAY SURGERY MAIN OR OTHER SURGICAL [...] itraconazole Fax results to: Dr. White - [phone] Transplant Neph - [phone] Gabapentin 400 MG capsule Sig: Take 1 [...] erythema: Skin: No jaundice or rash Neuro: musical string maker 3-7, 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 Strength [...] home amlodipine 5mg CAD: non-obstructive CAD on [facility] 2018. - continue home aspirin 81mg daily Gout: continue home allopurinol 200mg daily BPH: continue home flomax 0.4mg daily Complexity. Obesity Body mass index is 32.8 kg/m . - Follow with PCP for dietary and lifestyle modifications. Any conditions listed below are present on admission unless otherwise specified. . DVT prophylaxis with lovenox Disposition: admitted to [facility] Code status is Full Staffed [...] Pierson, Luisa Steven, Renee Rivera, Daisha Max Optical Instrument Repairer: José Miguel Garnica All Txt: 04/13/2020 (Kidney), [...] results found for: CYCLOSPORIN , CYCLOSPORIN2 , [id number] , CYCLORAND No results found for: SIROLIMUS [...] request in chart. Kevin Sage MD Pager [phone] [facility] 01-16-2024 History and physical note Images from the original note were not included. Internal Medicine Admission History & Physical Patient: George Styles, 1970, [id number] Physician: Timothy Joseph MD, PGY1, Pager #[phone], TM 1 service Date of face to [...] GUIDANCE 05/17/2022 Surgeon: Enzo Heart DO; Location: [facility] INTERVENTIONAL RADIOLOGY (VIR) LIVER TRANSPLANT, ORTHOTOPIC N/A 04/12/2020 Laterality: N/A; Surgeon: LU Palma; Location: [facility] SAME DAY SURGERY MAIN OR KIDNEY TRANSPLANT W/O REDDING NEPHRECTOMY N/A 04/12/2020 Laterality: N/A; Surgeon: LU Palma; Location: [facility] SAME DAY SURGERY MAIN OR OTHER SURGICAL [...] itraconazole Fax results to: Dr. White - [phone] Transplant Neph - [phone] Gabapentin 400 MG capsule Sig: Take 1 [...] Device: nasal cannula (01/16/2455) Flow (L/min): 4 (01/16/24 0056) Gen: Alert, Awake, NAD Eyes: PERRLA, EOMI, no icterus ENT: MMM, trachea midline Resp: + diminished lung sound on RLL, normal respiratory effort Cardio: RRR, normal S1, S2, no M/R/G. + 1 JENSEN through midcalf. GI: Mildly distended, + hepatomegaly, BS present MSK: No joint effusions or erythema: Skin: No jaundice or rash Neuro: musical string maker 3-7, 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 Strength [...] home amlodipine 5mg CAD: non-obstructive CAD on [facility] 2018. - continue home aspirin 81mg daily Gout: continue home allopurinol 200mg daily BPH: continue home flomax 0.4mg daily Complexity. Obesity Body mass index is 32.8 kg/m . - Follow with PCP for dietary and lifestyle modifications. Any conditions listed below are present on admission unless otherwise specified. . DVT prophylaxis with lovenox Disposition: admitted to [facility] Code status is Full Staffed [...] Pierson, Luisa Steven, Renee Rivera, Daisha Max Optical Instrument Repairer: José Miguel Garnica All Txt: 04/13/2020 (Kidney), [...] results found for: CYCLOSPORIN , CYCLOSPORIN2 , [id number] , CYCLORAND No results found for: SIROLIMUS [...] request in chart. Kevin Sage MD Pager [phone] documented in this encounter [facility] 01-12-2024 History of Present illness Narrative [...] Name: Prograf 0.2 MG Contact Info: Specialty ([place]) [phone] [facility] [phone] [facility] [phone] David [phone] Bedside Delivery ([facility]) [phone] [facility] RX OUTREACH ADVANCED: Call Information: Date and Time of Contact: 01/25/2024 10:23 AM Method of Contact: By Phone Contact Type: Prescriptions Contactor: [facility] OP Contactee: Patient Contact Outcome: Left message (prograf myco) Contact Info: Specialty ([place]) [phone] [facility] [phone] [facility] [phone] David [phone] Bedside Delivery ([facility]) [phone] documented in this encounter [facility] 01-12-2024 History of Present illness Narrative [...] Name: Prograf 0.2 MG Contact Info: Specialty ([place]) [phone] [facility] [phone] [facility] [phone] David [phone] Bedside Delivery ([facility]) [phone] [facility] OP RX OUTREACH ADVANCED: Call Information: Date and Time of Contact: 01/25/2024 10:23 AM Method of Contact: By Phone Contact Type: Prescriptions Contactor: [facility] OP Contactee: Patient Contact Outcome: Left message (prograf myco) Contact Info: Specialty ([place]) [phone] [facility] [phone] [facility] [phone] David [phone] Bedside Delivery ([facility]) [phone] [facility] OP RX OUTREACH ADVANCED: Call Information: Date and Time of Contact: 01/27/2024 10:19 AM Method of Contact: By Phone Contact Type: Prescriptions Contactor: [facility] OP Contactee: Patient Contact Outcome: Left message (myco prograf) Contact Info: Specialty ([place]) [phone] [facility] [phone] [facility] [phone] David [phone] Bedside Delivery ([facility]) [phone] documented in this encounter [facility] 01-12-2024 History of Present illness Narrative [...] Name: Prograf 0.2 MG Contact Info: Specialty ([place]) [phone] [facility] [phone] [facility] [phone] David [phone] Bedside Delivery ([facility]) [phone] [facility] OP RX OUTREACH ADVANCED: Call Information: Date and Time of Contact: 01/25/2024 10:23 AM Method of Contact: By Phone Contact Type: Prescriptions Contactor: [facility] OP Contactee: Patient Contact Outcome: Left message (prograf myco) Contact Info: Specialty ([place]) [phone] [facility] [phone] [facility] [phone] David [phone] Bedside Delivery ([facility]) [phone] [facility] RX OUTREACH ADVANCED: Call Information: Date and Time of Contact: 01/27/2024 10:19 AM Method of Contact: By Phone Contact Type: Prescriptions Contactor: [facility] Contactee: Patient Contact Outcome: Left message (myco prograf) Contact Info: Specialty ([place]) [phone] [facility] [phone] [facility] [phone] David [phone] Bedside Delivery ([facility]) [phone] [facility] RX OUTREACH ADVANCED: Call Information: Date and Time of Contact: 02/01/2024 3:22 PM Contact Type: Prescriptions Contactor: [facility] Contactee: Patient Contact Outcome: Left message Shipping/Pickup: Medication Name: Mycophenolate 360mg and Prograf 0.2mg Pack Contact Info: Specialty ([place]) [phone] [facility] [phone] [facility] [phone] David [phone] Bedside Delivery ([facility]) [phone] documented in this encounter 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) documented in this encounter [facility] 10-06-2023 History of Present illness Narrative [facility] [...] ; Prograf 0.2 MG Contact Info: Specialty ([place]) [phone] [facility] [phone] [facility] [phone] [facility] [phone] Bedside Delivery ([facility]) [phone] [facility] RX OUTREACH ADVANCED: Call Information: Date and Time of Contact: 10/23/2023 2:00 PM Method of Contact: By Phone Contact Type: Prescriptions Contactor: [facility] Contactee: Patient Contact Outcome: Left message and Call back later Shipping/Pickup: Medication Name: Mycophenolate 360mg and Prograf 0.2mg Contact Info: Specialty ([place]) [phone] [facility] [phone] [facility] [phone] [facility] [phone] Bedside Delivery ([facility]) [phone] documented in this encounter [facility] 09-11-2023 Miscellaneous Notes Pt discharged home [...] the oxygen during the night. pt will fish bait picker his oxygen from [facility] [facility], 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 This [...] Patient seen ambulating in the velazquez with WARP DRAWER. Patient was mildly short of breath on [...] & HR 114. Messaged Mainor Loomis, via Together [employer] secure chat, Temp 100.8. His tylenol order [...] short period of time. 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 Episode [...] Critical Care Medicine Message Mainor Loomis, via [employer] secure chat, Good evening, just an FYI, [...] short period of time. 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 This [...] [address] Loera here also (line mechanic) Dr. Diaz aware of pt's increased oxygen [...] Medicine-Pediatrics, PGY-2 Mr. Styles was admitted to [address] [place] [address]. On admission to [facility], from home a [...] station when available. documented in this encounter [facility] 09-11-2023 History of Present illness Narrative Provided follow-up emotional and spiritual support. Patient shared about rosemary of discharge and looking forward to seeing family Rock Dust Sprayer provided: - Supportive presence - Active listening - Validation of feelings/emotions Patient encouraged to request a digital editor as needed. Chaplains are available in-house 24 hours a day and 7 days a week. For urgent matters in [facility], please page [phone]. If the request is not urgent, please enter a consult. Consults are responded to within 24 hours. Senior Staff Rock Dust Sprayer Angie Singh Mdiv, [facility] Burson [phone] [email or web address] 22/06 On-call Burson: [phone] 22/06 Pager ,[facility], and Brock Maciel Pager [phone] 09/11/23 1439 Clinical Encounter Type Visited With Patient Visit Type Follow-up Pastoral Time Spent 15 min Referral Other (See Comment) (rounding) Spiritual Assessment Spiritual Observation Spirituality helpful Emotional Observation Coping well Hope Observation Specific hope focus Support Observation By Family Interventions Provided Active listening;Supportive presence Facilitated Verbalization of feelings Explored Expectations Auto Mechanic Supervisor Education Auto Mechanic Supervisor Service Available Yes Educated Patient Plan [...] on 09/11/2023. Dimitrios Gurrola RPh,PharmD Specialty ([place]) [phone] Jakob [phone] Jakob Bedside Delivery [phone] [facility] [phone] [facility] Bedside Delivery [phone] David [phone] David Bedside Delivery [phone] [place] [phone] [place] [phone] Internal Medicine Daily Progress Note Patient: George Styles, 1970, [id number] Physician: Evan Kelly MD, PGY-1, TM1 service Subjective/Interval History: Patient continues to require oxygen overnight for desaturations. With insurance limitations, only accepting agency to provide home oxygen backed out. After calling them to discuss, Lynn stated she would be willing to have patient drive to their facility to fish bait picker supplies, however they close at 5pm. 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 His [place] kidney disease was noted to be presumed [...] losartan 50mg BID CAD: non-obstructive CAD on [facility] 2018. - continue home aspirin 81mg [...] 5.05 (H) 11/19/2018 Kevin Sage MD, SERA Block Mechanic of Clinical Medicine [facility] Transplant [facility] Images from [...] Selected Services Address Phone Fax Patient Preferred [employer] [facility] [employer] [phone] [facility] [phone] Internal Comment last updated by Lora Alexander RN 09/10/2023 1334 Correct contact information: [employer] [address] [place] [address] [place] [address] optometrist assistant- you do not need to call at discharge, I already notified the company. Addendum [phone] [facility] this CM they are out of patient's insurance area and will not be able to service this patient at time of discharge. Provider notified. Addendum [phone] Dr Kelly called [facility] spoke to Lynn and she said they are willing to accept patient if the patient would drive to the [place] office and fish bait picker the supplies. Patient is willing to [...] Lora Colón RN, MSN, CCM, CMCN Clinical [employer] Crewmember- [facility] Transplant #[phone] Department of Pharmacy Transplant Note Patient: George [...] dose adjustment Name: Matt Kramer RPh,PharmD Phone: [phone] Date/Time: 09/10/2023 11:33 AM This CM sent referral via A[employer] for O2 concentrator to [facility] Start date today Timer set for 1330 [employer] Addendum 1337 One accepting company reserved in [address] [place] [address] Lora Colón RN, MSN, CCM, [facility] Clinical [employer] Crewmember- [facility] Transplant #[phone] NUTRITION FOLLOW-UP Nutrition Plan of Care: 1. Continue current diet order. 2. No oral supplements warranted at this time. 3. Monitor for significant weight changes. Monitor GI, skin integrity. 4. Monitor and encourage po intakes with goal of average po being 75-100%. 5. monitor tech to follow. ___ Met with patient [...] time. Will continue to monitor. RHIANNON BirminghamR Pager:[phone] Transplant Infectious Disease (Team 3) Progress Note [...] sign off. Please Epic message or page [phone] with questions. Evan White, DO Transplant Infectious Diseases Internal Medicine Daily Progress Note Patient: George Styles, 1970, [id number] Physician: Evan Kelly MD, PGY-1, TM1 service Subjective/Interval History: No acute events overnight. Patient continues to saturate appropriately on room air. He was also able to walk for 6min yesterday without supplemental oxygen. He reports feeling overall improved and all questions answered by the team. 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 His [place] kidney disease was noted to be presumed [...] losartan 50mg BID CAD: non-obstructive CAD on [facility] 2019. - continue home aspirin 81mg [...] to follow. Please Epic message or page [phone] with questions. 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 His [place] kidney disease was noted to be presumed [...] losartan 50mg BID CAD: non-obstructive CAD on [facility] 2018. - continue home aspirin 81mg daily, holding atorvastatin 20mg daily Gout: continue home allopurinol 200mg daily BPH: continue home flomax 0.4mg daily DVT PPX: SQH Code Status: Full Code Disposition: Pending clinical course. Anticipate eventual discharge home. Discussed with team and attending, Kevin Sage MD, on rounds. 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 His [place] kidney disease was noted to be presumed [...] losartan 50mg BID CAD: non-obstructive CAD on [facility] 2018. - continue home aspirin 81mg [...] 5.05 (H) 11/19/2018 Kevin Sage MD, SERA Block Mechanic of Clinical Medicine The [facility] Comprehensive Transplant [facility] Transplant Infectious Disease [...] to follow. Please Epic message or page [phone] with questions. Ann Marie Haskins MD PGY-4, [...] he continues to improve. Please message via [employer] secure chat or page with any questions or concerns. Evan White DO Block Mechanic Division of Infectious Disease Transplant Infectious [...] to follow. Please Epic message or page [phone] with questions. Evan White DO Transplant Infectious Diseases Images from the original note were not included. Pulmonary/Critical Care Medicine Daily Progress Note Reason for Consultation: bronch for infectious workup Requesting Physician: Dr. Sage CURRENT HOSPITALIZATION: Admit Date: 08/28/2023 [facility] Hospital LOS: 9 days Impression [...] pulmonary clinic We will sign off Crow Singha, MD Pulmonary and Critical Care Medicine Interval [...] and interpreted reviewed the radiographic data in IHIS/[facility]ather[facility]/Parenthoodswhere. 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 His hop[place] kidney disease was noted to be presumed [...] losartan 50mg BID CAD: non-obstructive CAD on [facility] 2018. - continue home aspirin 81mg [...] 5.05 (H) 11/19/2018 Kevin Sage MD, MADISONN Block Mechanic of Clinical Medicine [facility] Images from the original note were not included. Pulmonary/Critical Care Medicine Daily Progress Note Reason for Consultation: bronch for infectious workup Requesting Physician: Dr. Sage CURRENT HOSPITALIZATION: Admit Date: 08/28/2023 [facility] Hospital LOS: 8 days Impression [...] and interpreted reviewed the radiographic data in [facility] Acute Occupational Therapy Evaluation Prior to Admission [...] Assessment: Transfer Assessment: Sit to Stand Transfer [place] Level: Sit->Stand: independent Skilled Intervention/Details: Sit->Stand: x1 from EOB, x1 from toilet Stand to Sit Transfer [place] Level: Stand->Sit: independent Skilled Intervention/Details: Stand->Sit: x1 to toilet, x1 to EOB Functional Mobility: Functional Mobility [place] Level: Functional Mobility/Gait: independent Ambulation Distance (Feet): 20 Skilled Intervention/Details - Functional Mobility/Gait: pt performed functional mobility to/from RR w/ no overt LOB Outcome Score(s): [facility]RENT [facility] Daily Activity Inpatient Short Form Putting on/Taking Off Lower Body Clothin - A Little Assistance Bathin - A Little Assistance Toiletin - A Little Assistance Putting on/Taking Off Upper Body Clothin - No Assistance Groomin - No Assistance Eatin - No Assistance CURRENT [facility] Activity Raw Score: 21 CURRENT [facility] Activity Functional Limitation/Modifier: 32.79% Currently Impaired in [...] Acute Physical Therapy Evaluation Prior to Admission [facility] score(s): PRIOR LEVEL AM-PAC Mobility [...] Intact Mobility Assessment: Supine to Sit Mobility [place] Level: Supine->Sit: modified independence Bed Features/Set-up: Supine->Sit: Head of bed elevated Sit to Supine Mobility [place] Level: Sit->Supine: not tested Balance: Sitting Balance [...] environment. Transfer Assessment: Sit to Stand Transfer [place] Level: Sit->Stand: independent Skilled Intervention/Details: Sit->Stand: From EOB x 2 without difficulty. Stand to Sit Transfer [place] Level: Stand->Sit: independent Assistive Device: Stand->Sit: armed chair Skilled Rationale: Verbal cues, Positioning Gait/Functional Mobility: Gait Assessment [place]once Level: Gait: stand-by assist Assistive Device: Gait: rollator Ambulation Distance (Feet): 400 Gait Deviations Identified: decreased grace, decreased gait speed Gait Skilled Rationale: verbal, upright posture, increase step length, increase foot clearance Skilled Intervention/Details - Gait: Reasonable foot clearnce without loss of balance but endorsing dyspnea as 6-7/10. 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 His hop[place] kidney disease was noted to be presumed [...] losartan 50mg BID CAD: non-obstructive CAD on [facility] 2018. - continue home aspirin 81mg [...] 5.05 (H) 11/19/2018 Kevin Sage MD, SERA Block Mechanic of Clinical Medicine [facility] Transplant Infectious Disease [...] to follow. Please Epic message or page [phone] with questions. Evan White DO Transplant Infectious Diseases Images from the original note were not included. Internal Medicine Daily Progress Note Patient: George Styles, 1970, [id number] Physician: Evan Kelly MD, PGY-1, TM1 service [...] s/p combined Liver-kidney transplant on 04/13/20. His hop[place] kidney disease was noted to be presumed [...] losartan 50mg BID CAD: non-obstructive CAD on [facility] 2019. - continue home aspirin 81mg [...] P 450 system Kevin Sage MD, SERA Block Mechanic of Clinical Medicine [facility] ERT Note: [...] MD, PhD Internal Medicine and Pediatrics PGY-3 [facility] Brief plan of care update: [...] MD, PhD Internal Medicine and Pediatrics PGY-3 [facility] Transplant Infectious Disease (Team 3) [...] to follow. Please Epic message or page [phone] with questions. Evan White DO Transplant Infectious Diseases Internal Medicine Daily Progress Note Patient: George Styles, 1970, [id number] Physician: Evan Kelly MD, PGY-1, TM1 service [...] s/p combined Liver-kidney transplant on 04/13/20. His [place] kidney disease was noted to be presumed [...] 2/2 renal function CAD: non-obstructive CAD on [facility] 2018. - continue home aspirin 81mg [...] 5.05 (H) 11/19/2018 Kevin Sage MD, SERA Block Mechanic of Clinical Medicine [facility] Transplant [facility] Internal Medicine Daily Progress Note Patient: George Styles, 1970, [id number] Physician: Evan Kelly MD, PGY-1, TM1 service [...] s/p combined Liver-kidney transplant on 04/13/20. His hop[place] kidney disease was noted to be presumed [...] 2/2 renal function CAD: non-obstructive CAD on [facility] 2018. - continue home aspirin 81mg [...] 5.05 (H) 11/19/2018 eKvin Sage MD, SERA Block Mechanic of Clinical Medicine [facility]plant [facility] Progression of Care Note Expected [...] Lora Colón RN, MSN, CCM, CMCN Clinical [employer] Crewmember- [facility] Transplant #[phone] Made introductory visit with patient. Provided emotional and spiritual support. Patient shared about: - Source of Rosemary: Camping/Fishing/Family - Spirituality/Religion Affiliation: raised Yazidi - Family Support/history - Experience with illness/hospital course - Hopes for healing/future Rock Dust Sprayer provided: - Supportive presence - Active listening - Validation of feelings/emotions - Pledged prayer Patient encouraged to request a digital editor as needed. Chaplains are available in-house 24 hours a day and 7 days a week. For urgent matters in [facility], please page [phone]. If the request is not urgent, please enter a consult. Consults are responded to within 24 hours. Senior Staff Rock Dust Sprayer Angie Singh Mdiv, [facility] Kirk [phone] [email or web address] 22/06 On-call Kirk: [phone] 22/06 Pager ,BSLydia, and Brock Maciel Pager [phone] 09/02/23 1117 Clinical Encounter Type Visited With Patient Visit Type Introduction Pastoral Time Spent 15 min Referral Other (See Comment) (rounding) Spiritual Assessment Spiritual Observation Spirituality helpful Emotional Observation Coping well Hope Observation Specific hope focus Support Observation By Family Interventions Provided Active listening;Supportive presence Facilitated Verbalization of feelings Explored Expectations Auto Mechanic Supervisor Education Auto Mechanic Supervisor Service Available Yes Educated Patient Outcomes Patient Outcomes Reduced distress Plan of Care Continue Visiting PRN NUTRITION RISK SCREENING NOTE Nutrition Plan of Care: 1. Continue current diet order. 2. No oral supplements warranted at this time. 3. Monitor for significant weight changes. Monitor GI and skin integrity. 4. Monitor and encourage po intakes with goal of average po being 100%. 5. monitor tech to follow. George Styles is a 53 y.o. 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 His [place] kidney disease was noted to be presumed hepatorenal syndrome. His post-transplant course was noteworthy for nephrostomy tube (05/17/2022-09/10/2022) due to concern for ureteral stone. He presents as a direct admission for fever, cough, for infectious workup. Pt unavailable and information obtained via chart review Filler Room Attendant Screening Pt's appetite is good. Pt with [...] with meds Food Allergies reviewed:Shellfish Cultural or Religion Restrictions/Preferences: None GI: Last Bowel Movement: 09/01/23 [...] time. Will continue to monitor. RHIANNON BirminghamR Pager:[phone] Internal Medicine Daily Progress Note Patient: George Styles, 1970, [id number] Physician: Evan Kelly MD, PGY-1, TM1 service [...] room air (09/01/23 0909) Flow (L/min): 4 (10/03/23 0909) Gen: Alert, Awake, NAD, tired-appearing Eyes: EOMI, [...] s/p combined Liver-kidney transplant on 04/13/20. His [place] kidney disease was noted to be presumed [...] 2/2 renal function CAD: non-obstructive CAD on [facility] 2018. - continue home aspirin 81mg [...] as outlined above. Kevin Sage MD Pager [phone] Summary: Pharmacy Med Rec Department of Pharmacy [...] Provider: Zuly Bruno NP Pharmacy: [facility] Other Comments: Patient reported his Last Home Dose of mycophenolate & tacrolimus was on 08/28/23 at 0900. Patient reported he was taking Bactrim and benzonatate for fevers and a cough he was having. Please feel free to contact me with any further questions. Name: Heidy Chatman Phone #: [phone] Date/Time: 09/01/2023 2:01 PM Time Spent: 15 minutes Associated attestation - Matt Kramer RPh,PharmD - 09/01/2023 2:28 PM EDT Department of Pharmacy Admission Medication Reconciliation Note Patient: George Styles Room/Bed: 1062/A I have reviewed the home medication list with the Division Superintendent. All changes to the home medication list have been updated in [facility]. Updated ENROUTE CONTROLLER Med List: Prior to Admission Medications Prescriptions [...] questions. Name: Matt Kramer RPh,PharmD Phone #: [phone] Date/Time: 09/01/2023 2:28 PM Transplant Infectious Disease [...] crypto antigen, EBV PCR -follow pending histo, [id number] labs These recommendations were discussed with the primary team. Transplant ID (Team 3) will continue to follow. Please Epic message or page [phone] with questions. Evan White DO Transplant Infectious Diseases Internal Medicine Daily Progress Note Patient: George Styles, 1970, [id number] Physician: Evan Kelly MD, PGY-1, TM1 service [...] s/p combined Liver-kidney transplant on 04/13/20. His [place] kidney disease was noted to be presumed [...] 2/2 renal function CAD: non-obstructive CAD on [facility] 2018. - continue home aspirin 81mg [...] 5.05 (H) 11/19/2018 Kevin Sage MD, FASN Block Mechanic of Clinical Medicine [facility] Discharge Planning Patient [...] Yes Name and Contact information: Gian Styles ([phone]) Reviewed and Updated in Demographics? : Yes [...] patient on Anticoagulation? : No [id number] [place] [address] - [address] [facility] [address] [facility] [address] Assistant To The Dean Does the patient or kiosk sales representative express financial concerns? : No [...] Plan 1. Identified self and role as [employer] Crewmember. 2. Confirmed and updated demographics and treatment team. 3. [employer] Crewmember will continue to follow with medical team/pt for any other additional discharge needs. Kasandra DON RN [facility] [phone] *Please note I am float and work Thursday and Thursday every other week. Please call [phone] for assist in my absence. Internal Medicine Daily Progress Note Patient: George Styles, 1970, [id number] Physician: Evan Kelly MD, PGY-1, TM1 service [...] s/p combined Liver-kidney transplant on 04/13/20. His [place] kidney disease was noted to be presumed [...] 2/2 renal function CAD: non-obstructive CAD on [facility] 2018. - continue home aspirin 81mg [...] 5.05 (H) 11/19/2018 Kevin Sage MD, SERA Block Mechanic of Clinical Medicine [facility] Internal Medicine Daily Progress Note Patient: George Styles, 1970, [id number] Physician: Laurel Serrano MD, PhD, PGY-3, TM1 [...] s/p combined Liver-kidney transplant on 04/13/20. His [place] kidney disease was noted to be presumed [...] losartan 50mg BID CAD: non-obstructive CAD on [facility] 2018. - continue home aspirin 81mg daily, atorvastatin 20mg daily Gout: continue home allopurinol 200mg daily BPH: continue home flomax 0.4mg daily DVT PPX: SQH Code Status: Full Code Disposition: Pending clinical course. Anticipate eventual discharge home. Discussed with team and attending, Kevin Sage MD, on rounds. Signed, Laurel Serrano MD, PhD documented in this encounter [facility] 09-10-2023 Hospital Discharge instructions Laurel Serrano [...] a sleep doctor. You will need to fish bait picker the oxygen concentrator when you leave [...] on healthy foods. documented in this encounter [facility] 09-01-2023 Consult note Associated Order (s): IP CONSULT TO PULMONOLOGY Pulmonary Medicine Inpatient Consultation Reason for Consultation: bronch for infectious workup Requesting Physician: Dr. Sage Pulmonary Attending Physician: Dr. Diaz CURRENT HOSPITALIZATION: Admit Date: 08/28/2023 [facility] Hospital LOS: 4 days Impression/Recommendations: [...] Recommendations: - Plan to bronch tomorrow morning. NPO@[place], order placed - would repeat HIV, last [...] short period of time. 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 Other histories as documented in [...] had any ill contacts. He traveled to [place] to family reunion in May. REVIEW OF [...] GUIDANCE 05/17/2022 Surgeon: Enzo Heart DO; Location: [facility] INTERVENTIONAL RADIOLOGY (VIR) LIVER TRANSPLANT, ORTHOTOPIC N/A 04/12/2020 Laterality: N/A; Surgeon: LU Palma; Location: [facility] SAME DAY SURGERY MAIN OR KIDNEY TRANSPLANT W/O REDDING NEPHRECTOMY N/A 04/12/2020 Laterality: N/A; Surgeon: LU Palma; Location: [facility] SAME DAY SURGERY MAIN OR OTHER SURGICAL [...] Alamo MD I can be reached via [employer] message (preferred) or Pager #[phone] documented in this encounter [facility] 08-28-2023 History and physical note Images from the original note were not included. Internal Medicine Admission History & Physical Patient: George Styles, 1970, [id number] Physician: Aric Turner MD, PGY1, Pager #[phone], SN service Date of face to face patient [...] So he went to see the transplant planing machine operator. He was found elevated Cr and [...] Appetite is ok now. Urine is about 8488-0456 ml every day. 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 His [place] kidney disease was noted to be presumed [...] Urinary histoplasmosis - PJP, candid PCR - R Developer transplant ID Acute Kidney Injury with Kidney [...] losartan 50mg BID CAD: non-obstructive CAD on [facility] 2018. - continue aspirin 81mg daily, [...] transplant with FUO. Transplant Physician: Erma Canas, Fidelina Pierson, Luisa Steven, Renee Rivera, Daisha Max Optical Instrument Repairer: José Miguel Garnica All Txt: 04/13/2020 (Kidney), [...] results found for: CYCLOSPORIN , CYCLOSPORIN2 , [id number] , CYCLORAND No results found for: SIROLIMUS [...] Rest as above. Kevin Sage MD Pager [phone] documented in this encounter [facility] 08-28-2023 History of Present illness Narrative Images from the original note were not included. 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 Optical Instrument Repairer: Anayeli Burt Date of Liver Transplant: 04/13/2020 (Kidney), 04/13/2020 (Liver) 3 years 4 months post Liver/Kidney Transplant Primary Disease: Hypertensive Nephrosclerosis Transplant Cotton Feeder: Erma Roe/ Daisha Max Primary Care physician: [...] and faMOTIdine === None Specified Preferred Lab: [facility] Change in lab frequency / new [...] every 12 hours. ADDITIONAL INFORMATION: None Specified, [id number] [place] [address] - [address] [facility] [address] [facility] [address] [facility] [address] [facility] [address] [id number] [place] [address] [address] [facility] [address] [facility] [address] [facility] [place] [address] [place] [address] ROS and SCREEN: Chest Pain: negative Cough: [...] saw George Styles at the [facility] on 08/28/2023. Patient is a 53 y.o. 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 His [place] kidney disease was noted to be presumed [...] GUIDANCE 05/17/2022 Surgeon: Enzo Heart DO; Location: [facility] INTERVENTIONAL RADIOLOGY (VIR) LIVER TRANSPLANT, ORTHOTOPIC N/A 04/12/2020 Laterality: N/A; Surgeon: LU Palma; Location: [facility] SAME DAY SURGERY MAIN OR KIDNEY TRANSPLANT W/O REDDING NEPHRECTOMY N/A 04/12/2020 Laterality: N/A; Surgeon: LU Palma; Location: [facility] SAME DAY SURGERY MAIN OR OTHER SURGICAL [...] you have any questions. Steve Munoz MD tax examining technician Division of Nephrology [facility] documented in this encounter [facility] 08-28-2023 Instructions Mainor Busby RN - 08/28/2023 2:15 PM EDT - Admission for fevers, cough, and night sweats documented in this encounter [facility] 08-19-2023 History of Present illness Narrative [facility] OUTREACH ADVANCED: Call Information: Date and Time of Contact: 08/19/2023 2:52 PM Method of Contact: By Phone Contact Type: Prescriptions Contactor: [facility] OP Contactee: Patient Shipping/Pickup: Medicare B Refill?: No Medication Name: Tacro 0.5mg Delivery Method: Air Delivery Location: Home Signature Required: No Mailing/Pickup Date: 08/25/2023 Shipping Address: [address] [place] [address] Contact Info: Specialty ([place]) [phone] [facility] [phone] [facility] [phone] [facility] [phone] Bedside Delivery ([facility]) [phone] documented in this encounter [facility] 06-12-2023 History of Present illness Narrative Images from the original note were not included. George Styles is a 53 y.o. 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 No longer follows with a local planing machine operator. History of Present Illness: Since George [...] and lab results. Rebeca Olsen MSN, RN, PEDIATRIC ORTHODONTIST-BC, CCTN Certified Nurse Practitioner Comprehensive Transplant Center [facility] [address] [facility] [address] documented in this encounter [facility] 06-12-2023 Instructions JEANNA Hess - 06/12/2023 3:00 PM EDT No change in immunosuppression. documented in this encounter [facility] 06-10-2023 History of Present illness Narrative [facility] OUTREACH ADVANCED: Call Information: Method of Contact: By Phone Contact Type: Prescriptions Contactor: [facility] OP Contactee: Patient Contact Outcome: Left message Shipping/Pickup: Medication Name: Mycophenolate sod 180 mg Contact Info: Specialty ([place]) [phone] Jak[place] [phone] [facility] [phone] [place] [phone] Bedside Delivery ([facility]) [phone] [facility] OUTREACH ADVANCED: Call Information: Date and Time of Contact: 06/12/2023 9:43 AM Method of Contact: By Phone Contact Type: Prescriptions Contactor: [facility] OP Contactee: Patient Contact Outcome: Left message and Follow-up Shipping/Pickup: Medicare B Refill?: No Medication Name: Myco 180 Contact Info: Specialty ([place]) [phone] Jakob [phone] [facility] [phone] [place] [phone] Bedside Delivery ([facility]) [phone] [facility] RX OUTREACH ADVANCED: Call Information: Date and Time of Contact: 06/12/2023 10:08 AM Method of Contact: By Phone Contact Type: Prescriptions Contactor: [facility] Contactee: Patient Shipping/Pickup: Medicare B Refill?: No Medication Name: Mycophenolate 180mg DR Delivery Method: Air Delivery Location: Home Signature Required: No Mailing/Pickup Date: 06/17/2023 Shipping Address: [address] [place] [address] Contact Info: Specialty ([place]) [phone] [facility] [phone] [facility] [phone] David [phone] Bedside Delivery ([facility]) [phone] documented in this encounter [facility] 04-13-2023 Note HI Cardiology - [facility] [...] Legacy Encounter on (more content not included)... [facility] 03-12-2023 History of Present illness Narrative [facility] RX OUTREACH ADVANCED: Call Information: Date and Time of Contact: 03/12/2023 10:34 AM Method of Contact: By Phone Contact Type: Prescriptions Contactor: [facility] Contactee: Patient Shipping/Pickup: Medicare B Refill?: No Medication Name: Mycophenoloate sod 360 mg prednisone 5mg Delivery Method: Air Delivery Location: Home Signature Required: No Mailing/Pickup Date: 03/16/2023 Shipping Address: [address] [place] [address] Contact Info: Specialty ([place]) [phone] [facility] [phone] [facility] [phone] [place] [phone] Bedside Delivery ([facility]) [phone] [facility] RX OUTREACH ADVANCED: Call Information: [...] Required: No Mailing/Pickup Date: 03/19/2023 Shipping Address: [address] [place] [address] [address] Contact Info: Specialty ([place]) [phone] [facility] [phone] [facility] [phone] David [phone] Bedside Delivery ([facility]) [phone] documented in this encounter [facility] 03-10-2023 History of Present illness Narrative [facility] RX OUTREACH ADVANCED: Call Information: Date and Time of Contact: 03/10/2023 12:00 PM Method of Contact: By Phone Contact Type: Prescriptions Contactor: [facility] Contactee: Patient Contact Outcome: Left message and Call back later Shipping/Pickup: Medication Name: Mycophenolate ; Tacrolimus Contact Info: Specialty ([place]) [phone] [facility] [phone] [facility] [phone] David [phone] Bedside Delivery ([facility]) [phone] documented in this encounter [facility] 03-10-2023 History of Present illness Narrative [facility] RX OUTREACH ADVANCED: Call Information: Date and Time of Contact: 03/10/2023 12:00 PM Method of Contact: By Phone Contact Type: Prescriptions Contactor: [facility] Contactee: Patient Contact Outcome: Left message and Call back later Shipping/Pickup: Medication Name: Mycophenolate ; Tacrolimus Contact Info: Specialty ([place]) [phone] [facility] [phone] [facility] [phone] [place] [phone] Bedside Delivery ([facility]) [phone] [facility] RX OUTREACH ADVANCED: Call Information: Date and Time of Contact: 03/12/2023 10:32 AM Method of Contact: By Phone Contact Type: Prescriptions Contactor: [facility] Contactee: Patient Contact Outcome: Left message Shipping/Pickup: Medication Name: Mycophenolate sodium (MYFORTIC) 180 MG Tab tacrolimus 0.5 mg Contact Info: Specialty ([place]) [phone] Jakob [phone] [facility] [phone] David [phone] Bedside Delivery ([facility]) [phone] documented in this encounter [facility] 01-16-2023 History of Present illness Narrative -Referring Provider for today's consult: Daisha Max DO -Primary Care Provider: Zuly Bruno History of Present Illness George Styles is a 52 y.o. male who presents to the [facility] today for follow-up of [...] GUIDANCE 05/17/2022 Surgeon: Enzo Heart DO; Location: [facility] INTERVENTIONAL RADIOLOGY (VIR) LIVER TRANSPLANT, ORTHOTOPIC N/A 04/12/2020 Laterality: N/A; Surgeon: LU Palma; Location: [facility] SAME DAY SURGERY MAIN OR KIDNEY TRANSPLANT W/O REDDING NEPHRECTOMY N/A 04/12/2020 Laterality: N/A; Surgeon: LU Palma; Location: [facility] SAME DAY SURGERY MAIN OR OTHER SURGICAL [...] 0.3 12/29/2022 Explant Pathology Pathologic Diagnosis A. [place] liver, orthotopic liver transplant resection (1458 gram): [...] A/P with IV contrast (06/27/2022): 1. Both [place] kidneys are atrophic with improvement in right-sided [...] repeat recommended in 3-5years Assessment In summary, eGorge Styles is a 52 y.o.male with a [...] frequent nighttime urination, etc). Daisha Max DO Block Mechanic Gastroenterology, Hepatology and Nutrition [facility] Pager: [phone] Images from the original note were not included. 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 Optical Instrument Repairer: Anayeli Burt Date of Liver Transplant: 04/13/2020 (Kidney), 04/13/2020 (Liver) 2 years, 8 months post Liver/Kidney Transplant Primary Disease: Hypertensive Nephrosclerosis Transplant Cotton Feeder: Steve Munoz Primary Care physician: Zuly Bruno [...] levels: No results found for: CYCLOSPORIN, CYCLOSPORIN2, [id number], CYCLORAND No components found for: CYCLOSPORINE, 2HR [...] hours. ADDITIONAL INFORMATION: None Specified [id number] [place] [address] - [address] [facility] [address] [facility] [address] [facility] [place] [facility] [address] [facility] [facility] [address] [id number] [place] [address] [address] [facility] [address] [facility] [address] [facility] [place] [address], [address] [facility] [address] ROS and SCREEN: Chest Pain: negative Cough: [...] ADDRESS WITH PHYSICIAN: documented in this encounter [facility] 01-16-2023 Instructions José Miguel Garnica RN - 01/16/2023 9:40 AM EST - Labs Every 2 months - Discuss night time urination with your PCP - Schedule Colonoscopy through PCP - Follow up in 1 year documented in this encounter [facility] 09-10-2022 History of Present illness Narrative [...] and no hydronephrosis. Some reflux up the [place] right ureter but good drainage of both transplant and [place] ureter to the bladder. Nephrostomy tube was [...] transplant, orthotopic (N/A, 04/12/2020); kidney transplant w/o [place] nephrectomy (N/A, 04/12/2020); and placement nephrostomy catheter [...] Negative for , diarrhea, constipation Genitourinary: See ROBINSON Neurological: Negative for headaches. Lymph/Heme: Negative for [...] x 4, Normal strength. No edema. Skin: [place], warm, and dry. There are no rashes [...] and no hydronephrosis. Some reflux up the [place] right ureter but good drainage of both transplant and [place] ureter to the bladder. Nephrostomy tube was [...] MD 09/10/22 documented in this encounter [facility] 07-07-2022 History of Present illness Narrative [...] assisted off the table and escorted to reception centre manager where they made a follow up. [...] to have transplant ureter with anastomosis to [place] right ureter. Nephrostogram without filling defects and no hydronephrosis. Some reflux up the [place] right ureter but good drainage of both transplant and [place] ureter to the bladder. Nephrostomy tube was removed without issue. Patient does have some sensation of incomplete bladder emptying and occasional sensation in his right flank. PVR today was 33cc. Will re-evaluate urinary symptoms at next appointment. --continue Flomax --RTC in one month flow flow/PVR/IPSS Patient to call with any additional questions or concerns. Ryan Yepez MD 07/07/22 documented in this encounter [facility] 06-27-2022 History of Present illness Narrative [...] transplant, orthotopic (N/A, 04/12/2020); kidney transplant w/o [place] nephrectomy (N/A, 04/12/2020); and placement nephrostomy catheter [...] Negative for , diarrhea, constipation Genitourinary: See ROBINSON Neurological: Negative for headaches. Lymph/Heme: Negative for [...] x 4, Normal strength. No edema. Skin: [place], warm, and dry. 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 Nephrostomy tube placed 05/17 due [...] bag if needed. documented in this encounter [facility] 06-27-2022 History and physical note Patient was evaluated in clinic as a nurse visit. Please refer to Rena Brewster's note. [facility] Work Phone: 06-27-2022 History and physical note Patient was evaluated in clinic as a nurse visit. Please refer to Rena Brewster's note. documented in this encounter [facility] 06-27-2022 History of Present illness Narrative TEACHING REGARDING TX NEPH COMPLETED-NEPH TUBE SITE DRY AND INTACT-CLEAR YELLOW URINE IN THE BAG-INSTRUCTED ABOUT FLUSHING, BAG CHANGING ETC. NUMEROUS QUESTIONS ASKED AND ANSWERED-VERBALIZED UNDERSTANDING documented in this encounter [facility] 06-18-2022 Note EXAMINATION: CT ABD/ PELVIS [...] mass or enlargement. KIDNEYS: Marked atrophy of [place] kidneys. Transplant right pelvic kidney with percutaneous [...] authenticated by: MÓNICA JIMENEZ Date: 2022-06-18 13:53 [facility] 06-12-2022 Instructions Anayeli Christianson RN - 06/12/2022 3:21 PM EDT Do not take apart/disrupt nephrostomy tube system. Call Interventional Radiology and/or on-call transplant nurse [phone] for instruction if need to flush (clot or decreased flow). Take cipro 500mg, one tablet, twice per day for 14 days documented in this encounter [facility] 06-12-2022 History of Present illness Narrative Images from the original note were not included. 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 Optical Instrument Repairer: Aanyeli Burt Date of Liver Transplant: 04/13/2020 (Kidney), 04/13/2020 (Liver) 2 year, 1 months post Liver/Kidney Transplant Primary Disease: Hypertensive Nephrosclerosis Transplant Cotton Feeder: Steve Munoz Primary Care physician: Zuly Bruno [...] Non-obstructing kidney stone in renal graft at [facility]. Percutaneous Neph Tube placed Images from the original note were not included. Nursing Assessment In Clinic (see Clinic Prep Sheet for additional information) Patient is accompanied to clinic today by: self Did patient require a wheelchair or medical transport for appointment: no Did bowling or skating front desk clerk confirm current address and insurance information is [...] LAB AND PHARMACY: None Specified [facility] [place] [address] - [address] [facility] [address] [facility] [address] [facility] [facility] [address] [facility] [address] [id number] [place] [address] [address] [facility] [address] [facility] [address] [facility] [address], [address] [facility] [address] ROS and SCREEN: Chest Pain: negative Cough: [...] saw George Styles at the [facility] on 06/12/2022. Patient is a 52 y.o. 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 His [place] kidney disease was noted to be presumed [...] DAY SURGERY MAIN OR KIDNEY TRANSPLANT W/O REDDING NEPHRECTOMY N/A 04/12/2020 Laterality: N/A; Surgeon: LU Palma; Location: [facility] SAME DAY SURGERY MAIN OR OTHER SURGICAL [...] you have any questions. Steve Munoz MD tax examining technician Division of Nephrology [facility] documented in this encounter [facility] 06-04-2022 Instructions TATI GROVE - 06/04/2022 11:04 AM EDT Thank you for joining us for your neph tube follow up. We recommend routine exchange every 8-10 weeks. Please reach out at [phone] when it is time to set your next routine exchange. Thank you IR clinic documented in this encounter [facility] 06-04-2022 History of Present illness Narrative [...] exchange. Verbalized understanding. documented in this encounter [facility] 05-20-2022 Note Formatting of this n [...] time of his discharge. Leon Cook RN [facility] 05-20-2022 Miscellaneous Notes Patient discharged. AVS [...] provide teaching before his discharge Leon RN #[id number] Leon Cook RN Afternoon assessment completed at [...] Interdisciplinary Rounds/Family Conf Outcome: Ongoing Discussed with [facility] re: possible urine culture performed at [...] with questions. Evan Byrd MD Urology, PGY-2 #[id number] I certify that this patient requires inpatient [...] performed by Kallie Lorenzana RN and Sheri Arguleles RN. Skin Assessment: WDL Jose Score: 20 LDA Added:N Kallie Lorenzana RN documented in this encounter [facility] 05-20-2022 Note Formatting of this n [...] discharge/transition of care. Outcome: Adequate for Discharge [facility] 05-20-2022 Note Formatting of this n ote might be different from the original. Anne Dillard MD R10 Rm 1006 Jensen George Please let's have a clear order on how the nephrostomy site dressing need to be changed when the patient goes home so we provide teaching before his discharge Leon RN #[id number] Leon Cook RN [facility] 05-20-2022 History of Present illness Narrative Images from the original note were not included. [facility] Note: [facility] the following [facility] prescription(s): Medication reconciliation was completed with comparison to discharge reconciliation report. The prescription(s) will be delivered to the patient's bedside on 05/20/22. Total cost is $0. Yanira Her RPh,PharmD Specialty ([place]) [phone] Jakob [phone] [facility] [phone] David [phone] [place] [phone] Bedside Delivery ([facility]) [phone] Attending I saw George Styles at the [facility] on 05/19/2022. I saw and independently [...] Evan Bennett MD 650 mg at 05/18/22 6465 allopurinol (ZYLOPRIM) tablet 100 mg 100 mg [...] Daily Progress Note Patient: George Styles, 1970, [id number] Physician: Liam Julian MD, PGY-3, Pager #[phone], [id number] Subjective/Interval History: No acute events overnight. Passed [...] Saldana MD Division of Hospital Medicine Pager [phone] Attending I saw George Styles at the [facility] on 05/18/2022. I saw and independently [...] Daily Nishant Gamez MD 8.6 mg at 06/18/22 0947 sodium chloride 0.9% IV solution 250 [...] Daily Progress Note Patient: George Styles, 1970, [id number] Physician: Nishant Gamez MD, PGY2, Pager #[phone], [id number] Subjective/Interval History: Nephrostomy tube placed yesterday with a lot of urine output and significant improvement in creatinine. 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 Daya Saldana MD (Peggy) Division of Hospital Medicine Pager [phone] Internal Medicine Daily Progress Note Patient: George Styles, 1970, [id number] Physician: Nishant Gamez MD, PGY2, Pager #[phone], [id number] Subjective/Interval History: Worsening creatinine this morning with [...] Saldana MD Division of Hospital Medicine Pager [phone] Attending I saw George Styles at the [facility] on 05/17/2022. I saw and independently [...] of chart and discussion with treatment team, [employer] Crewmember has not identified needs at this time. [...] follow. Introduced self and role of the digital editor to patient. Provided emotional and spiritual support and the patient responded by sharing their experience and discussed the following: - Spirituality/Religion Affiliation: As a kid attended Yazidi mu-ism but not a strong identity now - Family support - pt's brothers live close by Rock Dust Sprayer provided: - Supportive presence - Active listening - Validation of feelings/emotions Patient encouraged to request a digital editor as needed. Chaplains are available in-house 24 hours a day and 7 days a week. For urgent matters in [facility], please page [phone]. If the request is not urgent, please enter a consult. Consults are responded to within 24 hours. Angie Singh Mdiv, [facility] [place] [phone] Rock Dust Spr[employer] [facility] Rock Dust Sprayer [place] [phone] [email or web address] 22/06 [facility] Pager [phone] 22/06 Pager ,[facility], and [place] 1500 22/06 David Pager [phone] 05/16/22 1129 Clinical Encounter Type Visited With Patient Visit Type Introduction Pastoral Time Spent 15 min Referral Other (See Comment) (Rounding) Spiritual Assessment Spiritual Observation Spirituality helpful;Identifies as (see comment) (Gnosticism) Emotional Observation Coping well Hope Observation Hopeful and accepting Support Observation By Family Interventions Provided Active listening;Supportive presence Facilitated Verbalization of feelings;Sharing of life story;Identifying support system Explored Expectations Auto Mechanic Supervisor Education Auto Mechanic Supervisor Service Available Yes Educated Patient Outcomes Patient Outcomes Articulated purpose/meaning Plan of Care Continue Visiting PRN Internal Medicine Daily Progress Note Patient: George Styles, 1970, [id number] Physician: Nishant Gamez MD, PGY2, Pager #[phone], [id number] Subjective/Interval History: Overall feeling okay this morning. [...] MD (Peggy) Division of Hospital Medicine Pager [phone] Acute Physical Therapy Evaluation Prior to Admission 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 [...] Supervision Transfer Assessment: Sit to Stand Transfer Ponce Level: Sit->Stand: independent Skilled Intervention/Details: Sit->Stand: x1 from EOB Stand to Sit Transfer Ponce Level: Stand->Sit: supervision Assistive Device: Stand->Sit: armed chair Skilled Rationale: Controlled descent for sitting, Verbal cues Gait/Functional Mobility: Gait Assessment Ponce Level: Gait: supervision Assistive Device: Gait: gait belt Gait Distance (feet): 200 Gait Deviations Identified: decreased grace, decreased step length, decreased stride length Gait Skilled Rationale: verbal, upright posture Skilled Intervention/Details - Gait: Pt with steady gait without LOB or complaints of SOB. Stairs: Stairs Assessment Ponce Level: Stair Negotiation: stand-by assist Assistive Device: Stair Negotiation: gait belt, left rail (ascending) Number of stairs: 9 Stairs Skilled Rationale: reciprocal pattern Outcome Score(s): [facility] Basic Mobility Inpatient Short Form Turning over in bed: 4 - No Assistance Sitting/standing from chair: 4 - No Assistance Moving from lying on back to sittin - No Assistance Moving to and from bed to chair: 4 - No Assistance Walk in hospital room: 3 - A Little Assistance Climbing 3-5 steps with a railin - A Little Assistance [facility] Mobility Raw Score: 22 [facility] Mobility Functional Limitation/Modifier: 20.91% Currently Impaired in [...] reported no concerns with discharging home with newbern support. 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 IADL History IADLs: independent Primary Language: Lebanese Home Management Skills: independent Meal Prep Responsibility: [...] Assessment: Transfer Assessment: Sit to Stand Transfer Ponce Level: Sit->Stand: independent Skilled Rationale: Cues for increased safety Skilled Intervention/Details: Sit->Stand: x1 EOB Stand to Sit Transfer Ponce Level: Stand->Sit: supervision Assistive Device: Stand->Sit: gait belt, armed chair Skilled Rationale: Verbal cues, Controlled descent for sitting, Cues for increased safety Skilled Intervention/Details: Stand->Sit: cues for hand placement and controlled descent Functional Mobility: Functional Mobility Ponce Level: Functional Mobility/Gait: stand-by assist Assistive Device: Functional Mobility/Gait: gait belt Functional Mobility Distance: Distance needed for limited community mobility Functional Mobility Deficits: Activity tolerance, Balance, Decreased step length, Generalized weakness Functional Mobility Skilled Rationale: Verbal cues, Facilitate postural control Skilled Intervention/Details - Functional Mobility/Gait: cues for upright posture Outcome Score(s): [facility] Daily Activity Inpatient Short Form Putting on/Taking Off Lower Body Clothin - A Little Assistance Bathin - A Little Assistance Toiletin - A Little Assistance Putting on/Taking Off Upper Body Clothin - No Assistance Groomin - No Assistance Eatin - No Assistance [facility] Activity Raw Score: 21 [facility] Activity Functional Limitation/Modifier: 32.79% Currently Impaired in [...] 04/12/2020 Laterality: N/A; Surgeon: LU Palma; Location: [facility] SAME DAY SURGERY MAIN OR KIDNEY TRANSPLANT W/O REDDING NEPHRECTOMY N/A 04/12/2020 Laterality: N/A; Surgeon: LU [...] by: Mel Norman OT, OTR/L License #: [id number] pager # [phone] 05/20/2022 Upon discontinuation of Acute Care Occupational Therapy Services or patient discharge from the hospital this note represents the current Occupational Therapy Discharge Summary. documented in this encounter [facility] 05-20-2022 Hospital course Narrative Discharge Summary [...] during his recent hospital stay at [facility]. As you may know, George Styles, [...] Saldana MD Division of Hospital Medicine p: [phone] f: [phone] CONSULTS DURING ADMISSION: IP CONSULT TO SURGERY - UROLOGY IP CONSULT TO NEPHROLOGY - TRANSPLANT (MEDICINE) IP CONSULT TO INTERVENTIONAL RADIOLOGY IP CONSULT TO PHYSICAL THERAPY IP CONSULT TO OCCUPATIONAL THERAPY IP CONSULT TO PHARMACY BEDSIDE DISCHARGE MED DELIVERY IMAGING / PROCEDURES / RESULTS: Should you require further information or copies of results or reports please contact Medical Information Management @ [phone] LABS AT TIME OF DISCHARGE: Lab Results [...] Bruno [address] [place] / [place] [address] MEDICATIONS: Discharge Orders CT ABDOMEN/PELVIS WITHOUT CONTRAST [...] CAPS Generic drug: docusate Follow-up: Zuly Bruno, DATA SYSTEMS MANAGER [address] [facility] [address] Schedule an appointment as soon as possible for a visit Follow-up appointment with your, primary care physician within 7-10 days, after discharge. [address] [facility] [id number] Follow up The department of urology will call you with a follow up appointment. LU Ovalle [address] 11th Floor [facility] [address] Follow up Please make a follow up appointment with Dr. Munoz's office. Upcoming Appointments (up to five)-Some appointments for Medical Center outpatient clinics or diagnostic testing locations are not displayed below Provider Department Dept Phone 06/04/2022 10:40 AM IR [facility] Interventional Radiology Clinic [phone] 06/27/2022 1:30 PM [facility] Department of Radiology Arrive at: Arrive to First Floor Registration Desk [phone] 06/27/2022 2:40 PM Ryan Yepez [facility] Arrive at: Arrive to 2nd Floor, Registration [id number] 10/31/2022 1:00 PM Steve Munoz [facility] Trans[facility] [phone] 01/16/2023 9:40 AM TRANSPLANT HEPATOLOGY 3, [facility] Trans[facility] [phone] Associated attestation - Daya Saldana MD - [...] MD (Peggy) Division of Hospital Medicine Pager [phone] documented in this encounter [facility] 05-20-2022 Hospital Discharge instructions Giulia Cavazos [...] be changed by Interventional Radiology. Please call [phone] to schedule this appointment and with any questions or concerns you may have regarding the nephrostomy tube. If you have questions or concerns, please call Interventional Radiology at SOMEONE FROM INTERVENTIONAL RADIOLOGY WILL CALL YOU FOR A FOLLOW UP IN THE IR CLINIC Giulia Cavazos RN Nurse Coordinator Interventional Radiology Interventional Radiology Outpatient scheduling documented in this encounter [facility] 05-19-2022 Note Formatting of this n [...] Ongoing Goal: Interdisciplinary Rounds/Family Conf Outcome: Ongoing [facility] 05-19-2022 Note Formatting of this n ote might be different from the original. Discussed with [facility] re: possible urine culture performed at their facility. However, based on urinalysis completed at that time, which was only notable for hematuria, culture was not performed and sample no longer feasible for culture. Liam Julian MD Internal Medicine/Pediatrics, PGY-3 [facility] 05-18-2022 Note Formatting of this n ote might be different from the original. 2002: IHIS message sent to Dr Justyn Wen, regarding patient passing a small kidney stone, about the size of pea. MD notified. Stone left in strainer in pt bathroom. 0500: IHIS message sent to Dr Justyn Wen, regarding pt BP 174/77. [facility] 05-18-2022 Note Formatting of this n [...] outcomes by discharge/transition of care. Outcome: Ongoing [facility] 05-18-2022 Note Formatting of this n [...] becomes hyponatremic, NS should instead be used. [facility] Work Phone: 05-18-2022 Note Formatting of this n ote might be different from the original. IHIS chat sent to Dr Tray Quintana, regarding pt BP 190/86. Pt complaining of pain at site of neph tube. PRN pain medication given per order parameters. Pt denies any other symptoms at this time. MD notified and aware. [facility] 05-17-2022 Note Formatting of this n ote might be different from the original. At 0900, I rounded with Dr. Gamez and Dr. Saldana. At that time I checked Mr. Styles's vital signs. His pulse oximeter was low and he was tachypneic. Verbal order at bedside to put nasal cannula on starting at 2liters oxygen and to provide incentive spirometer. [facility] 05-17-2022 Note Formatting of this n ote might be different from the original. Interventional Radiology procedure completed with IR Attending Dr. Heart / Dr. Le of percutaneous right nephrostomy tube placement transplant kidney 10.2 Fr Griffin acosta Pt tolerated procedure with moderate sedation local numbing agent . Transported to inpatient after phase I recovery. Post procedure orders in place. [facility] 05-16-2022 Note Formatting of this n ote might be different from the original. At 1530, I text chavad Kaitlynn Gomez MD that patient has only had 25ml urine output in myers this afternoon. [facility] 05-16-2022 Note Formatting of this n [...] with questions. Evan Byrd MD Urology, PGY-[address] #5620 [facility] Work Phone: 05-16-2022 Note Formatting of this n ote might be different from the original. I certify that this patient requires inpatient services at this time. I anticipate the expected length of stay will include at least two midnights. Inpatient services are due to the following medical concerns Obstructive kidney stone. Plans for post hospitalization care will be discharge to home. [facility] 05-16-2022 Consult note Associated Order (s): IP CONSULT TO NEPHROLOGY - TRANSPLANT (MEDICINE) I saw George Styles at the [facility] on 05/16/2022. Reason for Consultation: kidney [...] he was given flomax and sent home. [place] better but noticed more pain and decreased [...] best assessment and recommendations. Maxi Pringle MD [facility] Work Phone: 05-16-2022 Consult note Associated Order (s): IP CONSULT TO NEPHROLOGY - TRANSPLANT (MEDICINE) I saw George Styles at the [facility] on 05/16/2022. Reason for Consultation: kidney [...] he was given flomax and sent home. [place] better but noticed more pain and decreased [...] states he went to his local ED [place] and he was put on Flomax and he did improve. Pt states last night he was unable to void with severe right sided abd pain. Pt states nausea and no vomiting or fevers. Pt states he went back to [place] ED at 0100 and they placed a [...] orthotopic (N/A, 04/12/2020); and kidney transplant w/o hopland nephrectomy (N/A, 04/12/2020). 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 The hopland kidneys are progressively atrophic bilaterally compared to [...] of 06/14/2020 are no longer present. The hopland distal right ureter is decompressed beyond this [...] with surgical history for renal graft and hopland right urinary drainage, as a discrete ureteroneocystostomy is not identified, and the graft may be draining via a ureteroureterostomy. Urology consultation recommended. 3. The hopland kidneys are bilaterally atrophic, with right renal sinus calcifications consistent with nonobstructing right hopland renal calculi up to 6 mm. Normal [...] PGY-3, Department of Urologic Surgery Pager #: [phone] Associated attestation - Ryan Yepez MD - [...] continue flomax documented in this encounter [facility] 05-16-2022 Note Formatting of this n [...] supported Trust Relationship/Rapport: care explained choices provided [facility] 05-16-2022 Note Formatting of this n ote might be different from the original. On admission to R10, a dual RN initial assessment of skin condition was performed by Kallie Lorenzana RN and Sheri Arguelles RN. Skin Assessment: WDL Jose Score: 20 LDA Added:N Kallie Lorenzana RN [facility] 05-15-2022 Emergency department Note Report given to Kallie RN at 10 [facility] 05-15-2022 Emergency department Note Report given [...] DAY SURGERY MAIN OR KIDNEY TRANSPLANT W/O REDDING NEPHRECTOMY N/A 04/12/2020 Laterality: N/A; Surgeon: LU [...] Schneider MD Resident 05/15/222030 Pt arrives from [facility] with kidney stones. Pt states he had right lower abd pain and right flank pain with blood in his urine since Thursday. Pt states he went to his local ED [place] and he was put on Flomax and he did improve. Pt states last night he was unable to void with severe right sided abd pain. Pt states nausea and no vomiting or fevers. Pt states he went back to [place] ED at 0100 and they placed a myers and CT scan completed and multiple kidney stones noted. [facility] liver and kidney transplant in 03/2020. documented in this encounter [facility] 05-15-2022 History and physical note Internal Medicine Admission History & Physical Patient: George Styles, 1970, [id number] Physician: Evan Bennett MD, PGY1, Pager #[phone], GM 4 service Date of face to [...] DAY SURGERY MAIN OR KIDNEY TRANSPLANT W/O REDDING NEPHRECTOMY N/A 04/12/2020 Laterality: N/A; Surgeon: LU [...] erythema: Skin: No jaundice or rash Neuro: musical string maker 3-7, 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 Strength grossly equal in muscle groups of the bilateral UEs and LEs. Psych: Ox3, appropriate affect and cognition Data Review: WBC/Hgb/Hct/Plts: 15.81/14.6/46.0/250 (05/15 1436) Na/K+/Phos/Mg/Ca: 138/4.6/--/--/-- (05/15 1436) Bun/Creat/Cl/CO2/Glucose: 32/2.85/105/26/141 (05/15 143) Imaging: OSH CT 05/16/22 IMPRESSION: 1. Findings surrounding the liver and involymg the portal vein, branches, and collateral vessels within the upper abdomen are suspected be poststirgical chauges consistent with recent liver transplant. Increasing hypertension cannot be excluded. 2. Mild edema within the transplant renal hilum and mild dilation of the calyces may represent narrowing/partial [id number] ofthe ureter and mild hydronephrosis or sequela [...] MD Division of Hospital Medicine [phone] [facility] Work Phone: 05-15-2022 History and physical note Internal Medicine Admission History & Physical Patient: George Styles, 1970, [id number] Physician: Evan Bennett MD, PGY1, Pager #[phone], GM 4 service Date of face to [...] urine output; went back to he ED [place]. Myers was placed and the patient [...] DAY SURGERY MAIN OR KIDNEY TRANSPLANT W/O REDDING NEPHRECTOMY N/A 04/12/2020 Laterality: N/A; Surgeon: LU [...] erythema: Skin: No jaundice or rash Neuro: musical string maker 3-7, 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 Strength [...] dilation of the calyces may represent narrowing/partial off9yjynamc ofthe ureter and mild hydronephrosis or sequela [...] Medicine [id number] documented in this encounter [facility] 05-15-2022 Emergency department Note Bladder scan with Dr Villatoro at bedside, 14ml noted [facility] 05-15-2022 Consult note Associated Order (s): [...] states he went to his local ED [place] and he was put on Flomax and he did improve. Pt states last night he was unable to void with severe right sided abd pain. Pt states nausea and no vomiting or fevers. Pt states he went back to [place] ED at 0100 and they placed a [...] orthotopic (N/A, 04/12/2020); and kidney transplant w/o hopland nephrectomy (N/A, 04/12/2020). 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 The hopland kidneys are progressively atrophic bilaterally compared to [...] of 06/14/2020 are no longer present. The hopland distal right ureter is decompressed beyond this [...] with surgical history for renal graft and hopland right urinary drainage, as a discrete ureteroneocystostomy is not identified, and the graft may be draining via a ureteroureterostomy. Urology consultation recommended. 3. The hopland kidneys are bilaterally atrophic, with right renal sinus calcifications consistent with nonobstructing right hopland renal calculi up to 6 mm. Normal [...] PGY-3, Department of Urologic Surgery Pager #: [phone] Associated attestation - Ryan Yepez MD - [...] lytes most consistent with intrinsic causes of FYAE. Myers in place. However, patient now severely [...] before surgical intervention --may continue flomax [facility] Work Phone: 05-15-2022 Emergency department Note Advised Dr Schneider concerning no urine output via myers catheter. [facility] 05-15-2022 Physician Emergency department Note ED [...] plan of care. Gian Villatoro MD 05/15/222003 [facility] Work Phone: 05-15-[address] Schneider made aware of only 30 ml urine via myers since arrival to room. [facility] 05-15-2022 Physician Emergency department Note dEPARTMENT [...] DAY SURGERY MAIN OR KIDNEY TRANSPLANT W/O REDDING NEPHRECTOMY N/A 04/12/2020 Laterality: N/A; Surgeon: LU [...] incorrections. Matt Schneider MD Resident 05/15/222030 [facility] Work Phone: 05-15-2022 Emergency department Note Pt arrives from [facility] with kidney stones. Pt states he had right lower abd pain and right flank pain with blood in his urine since Thursday. Pt states he went to his local ED [place] and he was put on Flomax and he did improve. Pt states last night he was unable to void with severe right sided abd pain. Pt states nausea and no vomiting or fevers. Pt states he went back to [place] ED at 0100 and they placed a myers and CT scan completed and multiple kidney stones noted. [facility] ED as he had liver and kidney transplant in 03/2020. [facility] 03-14-2022 History of Present illness Narrative [...] No Mailing/Pickup Date: 03/17/2022 Shipping Address: [address] [place] [address] 179 Contact Info: Specialty ([place]) [phone] [facility] [phone] [facility] [phone] David [phone] Bedside Delivery ([facility]) [phone] documented in this encounter [facility] 06-14-2021 History of Present illness Narrative [...] Goal Progress: Satisfactory Contact Info: Specialty ([place]) [phone] Jakob [phone] [facility] [phone] David [phone] Bedside Delivery ([facility]) [phone] [facility]: Call Information: Date [...] Location: Home Signature Required: Yes Shipping Address: [address] [place] [address] Contact Info: Specialty ([place]) [phone] Jakob [phone] [facility] [phone] [facility] [phone] Bedside Delivery ([facility]) [phone] documented in this encounter [facility] Evaluation note Diagnosis FAYE (acute kidney injury)- Primary Acute kidney failure, unspecified Hydronephrosis due to obstruction of ureteral orifice Hydronephrosis due to obstruction of ureteral orifice FAYE (acute kidney injury) Acute kidney failure, unspecified [facility] Diagnosis Follow-up exam- Primary Unspecified follow-up examination [facility] Diagnosis Immunosuppressed status- Primary Unspecified disorder of immune mechanism Kidney replaced by transplant Liver replaced by transplant Abnormal blood chemistry Other abnormal blood chemistry High risk medication use Encounter for long-term (current) use of other medications Aftercare following organ transplant Liver transplant recipient [facility] Diagnosis Attention to nephrostomy- Primary [facility] Diagnosis Other hydronephrosis- Primary [facility] Diagnosis FAYE (acute kidney injury) Acute kidney failure, unspecified [facility] Diagnosis Other hydronephrosis- Primary -donor kidney transplant recipient Kidney replaced by transplant [facility] Diagnosis Other hydronephrosis [facility] Diagnosis 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) Encounter for screening for malignant neoplasm of prostate Special screening for malignant neoplasm of prostate [facility] Diagnosis Abnormal blood chemistry- Primary Other abnormal blood chemistry Liver transplant recipient Kidney replaced by transplant Immunosuppressed status Unspecified disorder of immune mechanism Aftercare following organ transplant [facility] Diagnosis Kidney replaced by transplant- Primary [facility] Diagnosis Immunosuppressed status- Primary Unspecified disorder of immune mechanism Kidney replaced by transplant Aftercare following organ transplant High risk medication use Encounter for long-term (current) use of other medications Other general symptoms and signs Abnormal blood chemistry Other abnormal blood chemistry Hypertension secondary to other renal disorders [facility] Diagnosis Histoplasmosis- Primary Histoplasmosis, unspecified [...] Fever, unspecified [facility] Diagnosis Bilateral lower extremity edema- Primary 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) Atherosclerosis 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) Atherosclerosis of aorta Obesity (BMI 30-39.9) DARLENE (obstructive sleep apnea) Obstructive sleep apnea (adult) (pediatric) Tremor Abnormal involuntary movements Immunocompromised (CMS/HCC) Unspecified immunity deficiency Primary hypertension (CMS/HCC) Unspecified essential hypertension Shortness of breath documented in this encounter [facility]* Diagnosis Pleural effusion [...] specified pre-operative examination [facility] Diagnosis Heart failure, diastolic, acute- Primary Acute diastolic heart failure [facility] Consultation (Routine) - New Request Specialty Diagnoses / Procedures Referred By Deni edwards Referred To Contact Interventional Radiology Diagnoses Hydronephrosis due to obstruction of ureteral orifice Daya Saldana MD [address] [place] [address] Referral ID Status Reason Start Date Expiration Date V isits Requested Visits Authorized [id number] New Request 05/18/2022 06/12/2023 1 1 * Radiology (Emergency) - New Request Specialty Diagnoses / Procedures Referred By Contac t Referred To Contact Procedures US RENAL TRANSPLANT SCAN Daya Saldana MD [address] [place] [address] Referral ID Status Reason Start Date Expiration Date V isits Requested Visits Authorized [id number] New Request 05/16/2022 06/10/2023 1 1 * Consultation (Routine) - New Request Specialty Diagnoses / Procedures Referred By Contac t Referred To Contact Urology Diagnoses FAYE (acute kidney injury) Ryan Yepez MD [address] [place] [address] [address] [place] [address] Referral ID Status Reason Start Date Expiration Date V isits Requested Visits Authorized [id number] New Request 05/16/2022 06/10/2023 1 1 * MRI/CAT Scan (Routine) - New Request Specialty Diagnoses / Procedures Referred By Contac t Referred To Contact Diagnoses FAYE (acute kidney injury) Procedures CT ABDOMEN/PELVIS WITHOUT CONTRAST CHG CT SCAN,ABDOMENT AND PELVIS,W/O CONTRAST Ryan Yepez MD [address] [place] [address] [address] [place] [address] Referral ID Status Reason Start Date Expiration Date V isits Requested Visits Authorized [id number] New Request 05/16/2022 06/10/2023 1 1 * (Routine) - Pending Review Specialty Diagnoses / Procedures Referred By Contac t Referred To Contact Procedures PLATELET MONITORING PER PROTOCOL Daya Saldana MD [address] [place] [address] Referral ID Status Reason Start Date Expiration Date V isits Requested Visits Authorized [id number] Pending Review 05/15/2022 06/09/2023 1 1 * (Routine) - Pending Review Specialty Diagnoses / Procedures Referred By Contac t Referred To Contact Procedures DVT/VTE RISK ASSESSMENT Daya Saldana MD [address] [place] [address] Referral ID Status Reason Start Date Expiration Date V isits Requested Visits Authorized [id number] Pending Review 05/15/2022 06/09/2023 1 1 * (Routine) Specialty Diagnoses / Procedures Referred By Contac t Referred To Contact Evan Bennett MD [address] [place] [address] Referral ID Status Reason Start Date Expiration Date Visits Re quested Visits Authorized * (Routine) Specialty Diagnoses / Procedures Referred By Contac t Referred To Contact Evan Bennett MD [address] [place] [address] Referral ID Status Reason Start Date Expiration Date Visits Re quested Visits Authorized [facility] for referral (narrative)* Consultation (Routine) - New Request Specialty Diagnoses / Procedures Referred By Contac t Referred To Contact Sleep Medicine Diagnoses Hypoxia Kevin Sage MD [address] [place] [address] Referral ID Status Reason Start Date Expiration Date V isits Requested Visits Authorized [id number] New Request 09/10/2023 10/04/2024 1 1 * MRI/CAT Scan (Routine) - New Request Specialty Diagnoses / Procedures Referred By Contac t Referred To Contact Diagnoses Histoplasmosis Procedures CT CHEST WITHOUT CONTRAST CHG DIAGNOSTIC COMPUTED TOMOGRAPHY THORAX W/O Kevin Zarate MD [address] [place] [address] Referral ID Status Reason Start Date Expiration Date V isits Requested Visits Authorized [id number] New Request 09/10/2023 10/04/2024 1 1 * Radiology (Routine) - New Request Specialty Diagnoses / Procedures Referred By Contac t Referred To Contact Procedures US RENAL TRANSPLANT SCAN Steve Munoz MBBS [address] [place] [address] Referral ID Status Reason Start Date Expiration Date V isits Requested Visits Authorized [id number] New Request 08/29/2023 09/22/2024 1 1 * (Routine) - New Request Specialty Diagnoses / Procedures Referred By Contac t Referred To Contact Procedures PLATELET MONITORING PER PROTOCOL Steve Munoz MBBS [address] [place] [address] Referral ID Status Reason Start Date Expiration Date V isits Requested Visits Authorized [id number] New Request 08/28/2023 09/21/2024 1 1 * (Routine) - New Request Specialty Diagnoses / Procedures Referred By Contac t Referred To Contact Procedures DVT/VTE RISK ASSESSMENT Steve Munoz MBBS [address] [place] [address] Referral ID Status Reason Start Date Expiration Date V isits Requested Visits Authorized [id number] New Request 08/28/2023 09/21/2024 1 1 [facility] Instructions * Patient Instructions - Christin Elizabeth APRN-DATA SYSTEMS MANAGER - 10/19/2018 9:21 AM EST You should take an extra dose of the lactulose as needed so that you are having 3-4 bowel movementsdaily. You should start the chemical dependency counseling as soon as possible. If you have questions, call the transplant social organization professor Fidelina Pierson. in this encounter* Patient Instructions - Sophie Cary, SAMI - 10/12/2018 11:09 AM EST You have been seen in the pre-transplant evaluation clinic by Dr. Restrepo and Sophie Cary. Sophie Cary is your pre-real estate coordinator she can be reached at [phone] at any time for questions during the pre-transplant process. Your evaluation is complete pendin. Abdominal ultrasound. 2. 6 minute walk test. 3. Cardiology evaluation. Additionally, your combat information center officer will recommend testing to screen for coronary artery disease. This will be scheduled for you after your cardiology visit. 4. Your coordinator will be requesting record from your last dental visit, colonoscopy and EGD. 5. Please work to complete social work recommendations. Your social organization professor will be contacting you to follow up on your progress. 6. You have also been referred for a kidney transplant. An appointment will be scheduled for you sari evaluated in the kidney transplant clinic after you have satisfied requirements dictated by your[employer] company. Once your testing is complete, we [...] ___ Other ___ Other Name MRN * [place] Christin Mejias, PEDIATRIC ORTHODONTIST-DATA SYSTEMS MANAGER - 10/19/2018 9:00 AM EST Formatting of this note may be different from the original. History of Present Illness: Chief Complaint Patient presents with Follow-up Cirrhosis George Styles is a 48 y.o. male who presents to the [facility] today regarding his diagnosis/chief complaint(s) of Cirrhosis secondary to ETOH, with ESRD follows with Dr. Orr. Currently undergoing evaluation for liver/kidney transplant. Has been seen in transplant clinic for eval. Still undergoing pre testing. Diagnosed in April 2018. Last drink was immediately prior to hospital admission in [place] for ACLF. Hospital course notable for ARF [...] (human immunodeficiency virus infection); Hyperlipidemia; Hyperthyroidism; Hypothyroidism; AK (myocardial infarction); Migraine; DARLENE (obstructive sleep apnea); [...] kidney transplant evaluation. Pt was AOx3. Transplant Picking Belt Operator role/function was explained and reviewed. The patient was informed that the results of this assessment will be shared with the referring provider and the transplant team. The patient verbalized understanding of this information. The [facility] psychosocial assessment consent form has been explained to patient and has been signed. Pt is completing this evaluation with brother (David) in the Outpatient setting. SWK educated pt on the benefits of completing/filing advanced directives and resources were offered. Pt identifies with [employer] druze. Pt confirms being a [place] Citizen. Pt.'s primary language is Lebanese. Pt confirms the ability to read,write, and understand Lebanese. Pt denies potential donors. Donor cards and [...] has valid license, does not regularly drive (DATA SYSTEMS MANAGER recommends that he not to drive). He [...] related disease etoh cirrohosis April dx in [facility] for thirty days. Pt reports [...] as well as referred him to pre real estate coordinator. Pt and support demonstrated moderate understanding [...] Patient's brother David is a self employed mar[employer] sales and service supervisor. Additional support includes his other brother Tyshawn and his Mary live fifteen minutes away. Of note Mary is a fern gatherer for a [employer] is available to assist behavioral sciences department chair. He confirms being comfortable [...] in 2010, he was employed by the [employer]. He has access to SSDI payment (SSDI starts in November) in regards to financial means pre/ post-transplant. Pt confirms (meeting bills currently, ) being able to meet daily needs. Patient's brother asking for additional information on community resources, food stamps and [employer]. Refer him to pt.'s dialysis center and the [facility]. Hereports access to Medicaid. Pt. denies [...] court ordered treatment after a DUI charge [facility] in [place], court ordered treatment in 2001 and in [...] by patient from his primary medical provider- ROB patient was noted as attending an alcohol [...] new visit Date of service: 10/12/2018 -Referring ward supervisor for today's consult: -Primary Care Provider: Zuly Bruno CC: Chief Complaint Patient presents with Liver Recipient Evaluation History of Present Illness George Styles is a 48 y.o. male who presents to the [facility] liver transplant surgery clinic today for evaluation [...] EST Timed up and go 9.9 seconds Player Piano Technician Left 52.8 pounds Right 44.9 pounds Waist circ 38.5 inches * Sophie Cary, SAMI - 10/12/2018 10:00 AM EST Formatting of this note may be different from the original. Patient George Styles ([id number]), accompanied by his brother, was seen on [...] any further questions. Sophie GUERINN, RN Liver Optical Instrument Repairer Etiology: ETOH HCC: No ETOH: Yes Last [...] Yovani Orr MD [address] [address] Status Reason Specialty Diagnoses / Procedures Referred By Contact Referred To Contact New Request Diagnoses Cirrhosis of liver with ascites, unspecified hepatic cirrhosis type Procedures US ABDOMEN RUQ/LIVER/GB Yovani Orr MD [address] [address] Specialty Diagnoses / Procedures Referred By Contac t Referred To Contact Diagnoses FAYE (acute kidney injury) Procedures CT ABDOMEN/PELVIS WITHOUT CONTRAST CHG CT SCAN,ABDOMENT AND PELVIS,W/O CONTRAST Central Scheduling [facility] [place] [address] Referral ID Status Reason Start Date Expiration Date V isits Requested Visits Authorized [id number] Pending Review 05/16/2022 06/10/2023 1 1 Specialty Diagnoses / Procedures Referred By Contac t Referred To Contact Diagnoses Other hydronephrosis Procedures FLUORO IMAGING FOR UROLOGY Ryan Yepez MD [address] [facility] [address] [place] [address] Referral ID Status Reason Start Date Expiration Date V isits Requested Visits Authorized [id number] New Request 07/07/2022 08/01/2023 1 1 Specialty Diagnoses / Procedures Referred By Contac t Referred To Contact Procedures DIRECT ADMIT REQUEST Steve Munoz MBBS [address] [place] [address] Referral ID Status Reason Start Date Expiration Date V isits Requested Visits Authorized [id number] New Request 08/28/2023 09/21/2024 1 1 Specialty Diagnoses / Procedures Referred By Contac t Referred To Contact Radiology Diagnoses DARLENE (obstructive sleep apnea) Primary hypertension (CMS/HCC) Bilateral lower extremity edema Shortness of breath Procedures Echocardiogram 2D complete Zuly Bruno NP [address] [place] [address] Referral ID Status Reason Start Date Expiration Date Visits Requested Visits Authorized [id number] Incomplete Perform Procedure 01/06/2024 07/04/2024 1 1 Specialty Diagnoses / Procedures Referred By Contac t Referred To Contact Procedures US IMAGING REGIONAL ANESTHESIA Kehinde Gutierrez MD [address] [place] [address] Referral ID Status Reason Start Date Expiration Date V isits Requested Visits Authorized [id number] New Request 01/22/2024 02/15/2025 1 1 Specialty Diagnoses / Procedures Referred By Contac t Referred To Contact Cardiovascular Medicine Diagnoses Heart failure, diastolic, acute Kelvin Pacheco MD, MBBS [address] [place] [address] Referral ID Status Reason Start Date Expiration Date V isits Requested Visits Authorized [id number] New Request 01/20/2024 02/13/2025 1 1 Specialty Diagnoses / Procedures Referred By Contac t Referred To Contact Procedures US ABDOMEN LIVER DOPPLER US ABDOMEN LIVER TRANSPLANT DOPPLER Timothy Joseph [facility] [address] [facility] [address] [place] [address] Referral ID Status Reason Start Date Expiration Date V isits Requested Visits Authorized [id number] New Request 01/16/2024 02/09/2025 1 1 Specialty Diagnoses / Procedures Referred By Contac t Referred To Contact Procedures DVT/VTE RISK ASSESSMENT Kelvin Pacheco MD, MBBS [address] [place] [address] Referral ID Status Reason Start Date Expiration Date V isits Requested Visits Authorized [id number] New Request 01/16/2024 02/09/2025 1 1 Specialty Diagnoses / Procedures Referred By Contac t Referred To Contact Procedures PLATELET MONITORING PER PROTOCOL Kelvin Pacheco MD, MBBS [address] [place] [address] Referral ID Status Reason Start Date Expiration Date V isits Requested Visits Authorized [id number] New Request 01/16/2024 02/09/2025 1 1 Referral ID Status Reason Start Date Expiration Date V isits Requested Visits Authorized [id number] New Request 01/16/2024 02/09/2025 1 1 Specialty Diagnoses / Procedures Referred By Contac t Referred To Contact Procedures ECG Kelvin Pacheco MD, MBBS [address] [place] [address] Referral ID Status Reason Start Date Expiration Date V isits Requested Visits Authorized [id number] New Request 01/16/2024 02/09/2025 1 1 Advance Directives No Advanced Directives Records FoundDocuments on File Type Date Recorded Patient Egg Breaker Expl anation Advance Directives and Living Will Power of Fell Cutter Latest Code Status on File Code Status [...] Yovani Orr MD [address] [address] Status Reason Specialty Diagnoses / Procedures Referre d By Contact Referred To Contact Denied Diagnoses Alcoholic cirrhosis, unspecified whether ascites present Pre-transplant evaluation for liver transplant Procedures MRI ABDOMEN WITH CONTRAST ND MRI, ABDOMEN W/CONTRAST Yovani Orr MD [address] [place] [address] [place] [address] Reason Comments Liver Recipient Evaluation Status Reason Specialty Diagnoses / Procedures Referred By Contact Referred To Contact New Request Transplant / Transplant Surgery Procedures PRE NEW PATIENT Yovani Orr MD [address] [place] [address] [place] [address] Alfredito Restrepo MD [address] [place] [address] Reason Comments Reschedule Reason Comments Outside Medical Records Request Reason Comments Social Work Follow-up Reason Comments Kidney Stone Specialty Diagnoses / Procedures Referred By Contac t Referred To Contact Diagnoses Obstructing kidney stone, s/p kidney transplant 2019 Daya Saldana MD [address] [place] [address] [facility] [address] [place] [address] Referral ID Status Reason Start Date Expiration Date Visits Re quested Visits Authorized [id number] 1 1 Reason Comments Follow-up Reason Comments Kidney Recipient Follow-up Liver Recipient Follow-up Reason Comments Consult Reason Comments New Patient Hospital follow up Specialty Diagnoses / Procedures Referred By Contac t Referred To Contact Urology Diagnoses hosp fu with [address] prior Procedures NEW TO DOC/RET PATIENT Zuly Bruno, DATA SYSTEMS MANAGER [address] [place] [address] Ryan Yepez MD [address] [place] [address] [address] [place] [address] Referral ID Status Reason Start Date Expiration Date Visits Re quested Visits Authorized [id number] Closed 06/27/2022 07/22/2023 1 1 Specialty Diagnoses / Procedures Referred By Contac t Referred To Contact Diagnoses FAYE (acute kidney injury) Procedures CT ABDOMEN/PELVIS WITHOUT CONTRAST CHG CT SCAN,ABDOMENT AND PELVIS,W/O CONTRAST Central Scheduling [address] [place] [address] Referral ID Status Reason Start Date Expiration Date V isits Requested Visits Authorized [id number] Pending Review 05/16/2022 06/10/2023 1 1 Reason Comments Follow-up Specialty Diagnoses / Procedures Referred By Contac t Referred To Contact Urology Diagnoses 1 week fu post NT clamp Procedures RETURN PATIENT Zuly Bruno, DATA SYSTEMS MANAGER [address] [place] [address] Ryan Yepez MD [address] [place] [address] [address] [place] [address] Referral ID Status Reason Start Date Expiration Date Visits Requested Visits Authorized [id number] Authorized - 07/07/2022 08/01/2023 2 2 Specialty Diagnoses / Procedures Referred By Contac t Referred To Contact Diagnoses Other hydronephrosis Procedures FLUORO IMAGING FOR UROLOGY Ryan Yepez MD [address] [facility] [address] [place] [address] Referral ID Status Reason Start Date Expiration Date V isits Requested Visits Authorized [id number] New Request 07/07/2022 08/01/2023 1 1 Specialty Diagnoses / Procedures Referred By Contac t Referred To Contact Urology Diagnoses 1 week fu post NT clamp Procedures RETURN PATIENT Zuly Bruno, DATA SYSTEMS MANAGER [address] [place] [address] Ryan Yepez MD [facility] [address] [place] [address] Referral ID Status Reason Start Date Expiration Date Visits Re quested Visits Authorized [id number] Closed 07/07/2022 08/01/2023 2 2 Reason Comments Liver Recipient Follow-up Reason Comments Kidney Recipient Follow-up Reason Comments Kidney Recipient Follow-up Specialty Diagnoses / Procedures Referred By Contac t Referred To Contact Diagnoses Kidney replaced by transplant Steve Munoz MBBS [address] [place] [address] [facility] [address] [place] [address] Referral ID Status Reason Start Date Expiration Date Visits Re quested Visits Authorized [id number] 1 1 Specialty Diagnoses / Procedures Referred By Contac t Referred To Contact Diagnoses Pleural effusion on right PNEUMONIA- HX LIVER AND KIDNEY TRANSPLANT Kevin Sage MD [address] [place] [address] [facility] [address] [place] [address] Referral ID Status Reason Start Date Expiration Date Visits Re quested Visits Authorized [id number] 1 1 Reason Comments New Patient Specialty Diagnoses / Procedures Referred By Contac t Referred To Contact Cardiovascular Medicine Diagnoses Heart failure, diastolic, acute Kelvin Pacheco MD, MBBS [address] [place] [address] Referral ID Status Reason Start Date Expiration Date Visits Requested Visits Authorized [id number] Authorized - 01/20/2024 02/13/2025 5 5 (unrecognized sect ion and content) No Status Records FoundNo Status Records FoundNo Status Records FoundNo Status Records FoundNo Status Records FoundNo Status Records Found INFORMATION SOURCE (unrecogn ized section and content) DATE CREATED AUTHOR 01/07/2020 [facility] DATE CREATED AUTHOR AUTHOR'S ORGANIZ ATION 01/27/2021 [facility] DATE CREATED AUTHOR AUTHOR'S ORGANIZ ATION 04/13/2023 [facility] DATE CREATED AUTHOR AUTHOR'S ORGANIZ ATION 05/11/2023 [facility] DATE CREATED AUTHOR AUTHOR'S ORGANIZ ATION 03/25/2024 [facility] dical [facility] DATE CREATED AUTHOR AUTHOR'S ORGANIZ ATION 04/18/2024 [facility] Care Teams (unrecognized sec tion and content) Steam Pressure Chamber Operator Relationship Specialty Start Date End Date Zuly Bruno CNP PCP - General 07/19/18 Comfort Rivera, [facility] [address] [facility] [address] [place] [address] Pharmacist Pharmacist 05/16/20 Angel Carpio [facility],PharmD Pharmacist Pharmacist 05/16/20 Te Leigh [facility],PharmD Pharmacist Pharmacist 01/09/21 Steam Pressure Chamber Operator Relationship Specialty Start Date End Date Zuly Bruno CNP PCP - General 07/19/18 Comfort Rivera, [facility] [address] [facility] [address] [place] [address] Pharmacist Pharmacist 05/16/20 Angel Carpio [facility],PharmD Pharmacist Pharmacist 05/16/20 Te Leigh [facility],PharmD Pharmacist Pharmacist 01/09/21 Steam Pressure Chamber Operator Relationship Specialty Start Date End Date Zuly Bruno CNP PCP - General 07/19/18 Steam Pressure Chamber Operator Relationship Specialty Start Date End Date Zuly Bruno CNP PCP - General 07/19/18 Steam Pressure Chamber Operator Relationship Specialty Start Date End Date Zuly Bruno CNP PCP - General 07/19/18 Steam Pressure Chamber Operator Relationship Specialty Start Date End Date Zuly Bruno CNP PCP - General 07/19/18 Steam Pressure Chamber Operator Relationship Specialty Start Date End Date Zuly Bruno CNP PCP - General 07/19/18 Steam Pressure Chamber Operator Relationship Specialty Start Date End Date Zuly Bruno CNP PCP - General 07/19/18 Steam Pressure Chamber Operator Relationship Specialty Start Date End Date Zuly Bruno CNP PCP - General 07/19/18 Steam Pressure Chamber Operator Relationship Specialty Start Date End Date Zuly Bruno CNP PCP - General 07/19/18 Steam Pressure Chamber Operator Relationship Specialty Start Date End Date Zuly Bruno CNP PCP - General 07/19/18 Steam Pressure Chamber Operator Relationship Specialty Start Date End Date Zuly Bruno CNP PCP - General 07/19/18 Steam Pressure Chamber Operator Relationship Specialty Start Date End Date Zuly Bruno CNP PCP - General 07/19/18 Steam Pressure Chamber Operator Relationship Specialty Start Date End Date Zuly Bruno CNP PCP - General 07/19/18 Steam Pressure Chamber Operator Relationship Specialty Start Date End Date Zuly Bruno CNP PCP - General 07/19/18 Steam Pressure Chamber Operator Relationship Specialty Start Date End Date Zuly Bruno CNP PCP - General 07/19/18 Steam Pressure Chamber Operator Relationship Specialty Start Date End Date Zuly Bruno CNP PCP - General 07/19/18 Eavn White DO [address] [place], [place] [id number] Infectious Disease Infectious Disease 09/09/23 Steam Pressure Chamber Operator Relationship Specialty Start Date End Date Zuly Bruno CNP PCP - General 07/19/18 Evan White DO [address] [place] [address] Infectious Disease Infectious Disease 09/09/23 Steam Pressure Chamber Operator Relationship Specialty Start Date End Date Zuly Bruno CNP PCP - General 07/19/18 Evan White DO [address] [place] [address] Infectious Disease Infectious Disease 09/09/23 Steam Pressure Chamber Operator Relationship Specialty Start Date End Date Momo Verdugo MD PCP - General Family Medicine 05/21/23 Steam Pressure Chamber Operator Relationship Specialty Start Date End Date Momo Verdugo MD PCP - General Family Medicine 05/21/23 Steam Pressure Chamber Operator Relationship Specialty Start Date End Date Momo Verdugo MD PCP - General Family Medicine 05/21/23 Steam Pressure Chamber Operator Relationship Specialty Start Date End Date Zuly Bruno CNP PCP - General 07/19/18 Evan White DO [address] [place] [id number] Infectious Disease Infectious Disease 09/09/23 Steam Pressure Chamber Operator Relationship Specialty Start Date End Date Zuly Bruno CNP PCP - General 07/19/18 Evan White DO [address] [place] [id number] Infectious Disease Infectious Disease 09/09/23 Steam Pressure Chamber Operator Relationship Specialty Start Date End Date Zuly Bruno CNP PCP - General 07/19/18 Evan White DO [address] [place] [id number] Infectious Disease Infectious Disease 09/09/23 Steam Pressure Chamber Operator Relationship Specialty Start Date End Date Zuly Bruno CNP PCP - General 07/19/18 Evan White DO [address] [place] [id number] Infectious Disease Infectious Disease 09/09/23 Steam Pressure Chamber Operator Relationship Specialty Start Date End Date Zuly Bruno CNP PCP - General 07/19/18 Evan White DO [address] [place] [id number] Infectious Disease Infectious Disease 09/09/23 Steam Pressure Chamber Operator Relationship Specialty Start Date End Date Zuly Bruno CNP PCP - General 07/19/18 Steam Pressure Chamber Operator Relationship Specialty Start Date End Date Zuly Bruno CNP PCP - General 07/19/18 Scheduled Active and Recently Administ ered Medications (unrecognized section and content) Medication Order 05/18/2022 05/19/2022 05/20/2022 allopurinol (ZYLOPRIM) tablet 100 mg 100 mg, Oral, DAILY, First dose (after last modification) on Thu05/17/22 at 0900, Until Discontinued 0807 (Given - Provider: Mel Hampton RN) 0805 (Given - Provider: Josey Braun RN) 0931 (Given - Provider: Leon Cook, RN) amLODIPine (NORVASC) tablet 5 mg 5 mg, Oral, DAILY, First dose on Thu05/16/22 at 0900, Until Discontinued 0807 (Given - Provider: Mel Hampton RN) 0805 (Given - Provider: Josey Braun RN) 0932 (Given - Provider: Leon Cook, SAMI) aspirin chewable tablet 81 mg 81 mg, Oral, DAILY, First dose on Thu05/16/22 at 0900, Until Discontinued 0807 (Given - Provider: Mel Hampton RN) 0805 (Given - Provider: Josey Braun RN) 0930 (Given - Provider: Leon Cook, [...] Until Discontinued 08 (Given - Provider: Mel Hampotn RN) 0806 (Given - Provider: Josey Braun [...] Isaac RN) 0804 (Given - Provider: Josey Aparna, RN)1754 (Given - Provider: Josey Braun RN)2059 [...] Leon Cook RN)1322 (Stopped - Provider: Leon Cook, RN) mycophenolate sodium (MYFORTIC) tablet DR 360 mg 360 mg, Oral, EVERY 12 HOURS NON-STANDARD, First dose on Marta 05/15/22 at 2245, Until Discontinued, Give on an empty stomach. Swallow tablet whole; do not split, crush, or chew. 0807 (Given - Provider: Mel Hampton, RN)1999 (Given - Provider: Carolyn Isaac, RN) 804 (Given - Provider: Josey Braun RN)2058 (Given - Provider: Carolyn Isaac RN) 0742 (Given - Provider: Leon Cook, RN)1999 (Canceled Entry - Provider: System Discharge - Comment: Automatically canceled at discontinue of medication order) polyethylene glycol (MIRALAX) packet 17 g 17 g, Oral, EVERY 12 HOURS, First dose (after last modification) on Thu05/16/22 at 0900, Until Discontinued 08 (Not Given - Provider: Mel Hampton RN - Reason: Patient with symptoms)1958 (Given - Provider: Carolyn Isaac RN) 1135 (Not Given - Provider: Josey Braun RN [...] in half and each half swallowed separately. 804 (Given - Provider: Josey Braun RN) potassium [...] NEEDED, Starting on 05/17/22 at 1101, Until 05/20/22 at 2110, CT Procedure melatonin tablet 3 mg 3 mg, Oral, DAILY AT BEDTIME NEEDED, Starting on Marta /16/22 at 2206, Until Thu05/20/22 at 2110, Insomnia [...] Pain 0338 (See Alternative - Provider: Carolyn Iasac RN)0806 (See Alternative - Provider: Mel Hampton RN) 0825 (Given - Provider: Josey Braun, SAMI)210 (Given - Provider: Carolyn Isaac RN) oxyCODONE [...] Provider: Terra Heart RN - Reason: Patient/family refused)163 (Not Given - Provider: Terra Heart RN [...] 0753 (Given - Provider: Aixa Holden RN) 08 [...] or crush 0753 (Given - Provider: Aixa Holden, RN) 0829 (Given - Provider: Terra Heart, [...] Insomnia 2221 (Given - Provider: Girish Nunez, SAMI) 2205 (Given - Provider: Carolyn Plasencia RN) [...] since 01/18/2024 at 1009 until manually unheld 0900 (Automatically Held - Provider: Arelis Mera MD) 0900 (Automatically Held - Provider: Arelis Mera MD) 0900 (Automatically Held - Provider: Arelis Mera MD)1752 (Unheld by provider - Provider: System Discharge) aspirin chewable tablet 81 mg 81 mg, Oral, DAILY, First dose on 01/16/24 at 0900, Until Discontinued, On hold since Mrata 01/21/2024 at 0802 until manually unheld 0802 [...] 0846 (Given - Provider: Terra Heart RN)105 (JAN Hold - Provider: Automatic Transfer - Reason: Transfer to a Procedural area)141 (JAN Unhold - Provider: Automatic Transfer) tacrolimus (PROGRAF) susp 0.2 mg 0.2 mg, Oral, CUSTOM FREQUENCY (Once per day on Thursday), First dose on Thu01/16/24 at 0900, Until Discontinued, Caution check route of administration. For sublingual administration, place liquid under tongue and allow absorption. 0842 (Given - Provider: Erica Gudino RN) 105 ([facility] Hold - Provider: Automatic Transfer - Reason: Transfer to a Procedural area)141 ([facility] Unhold - Provider: Automatic Transfer) 09 (Given - Provider: Terra Heart RN) Tamsulosin HCl (FLOMAX) capsule 0.4 mg 0.4 mg, Oral, DAILY, First dose on Thu01/16/24 at 0900, Until Discontinued, Slow release product. Do not chew or crush 0842 (Given - Provider: Erica Gudino RN) 0841 (Given - Provider: Terra Heart RN)1053 ([facility] Hold - Provider: Automatic Transfer - Reason: Transfer to a Procedural area)141 ([facility] Unhold - Provider: Automatic Transfer) 09 (Given [...] 0841 (Given - Provider: Terra Heart RN)1053 ([facility] Hold - Provider: Automatic Transfer - Reason: Transfer to a Procedural area)1414 ([facility] Unhold - Provider: Automatic Transfer) 0920 (Given [...] from all sources in 24 hours. 1053 ([facility] Hold - Provider: Automatic Transfer - Reason: Transfer to a Procedural area)1414 ([facility] Unhold - Provider: Automatic Transfer)1806 (Given - [...] 200-200 mg and Simethicone 20 mg) 1053 ([facility] Hold - Provider: Automatic Transfer - Reason: Transfer to a Procedural area)1414 ([facility] Unhold - Provider: Automatic Transfer) guaiFENesin (ROBITUSSIN) oral solution 400 mg 400 mg, Oral, EVERY 6 HOURS NEEDED, Starting on 01/16/24 at 0202, Until 01/23/24 at 1752, Cough, Congestion 1053 ([facility] Hold - Provider: Automatic Transfer - Reason: Transfer to a Procedural area)1414 ([facility] Unhold - Provider: Automatic Transfer) HYDROmorphone (DILAUDID) [...] Procedural area)1414 (MAR Unhold - Provider: Automatic Transfer)2355 (Given - [...] Ahmadi RN)1415 (See Alternative - Provider: Terra Heart, SAMI) oxyCODONE (ROXICODONE) tablet 5 mg 5 mg, Oral, EVERY 4 HOURS NEEDED, Starting on Thu01/22/24 at 1322, Until 01/23/24 at 1752, Moderate Pain, Severe Pain 1441 (Given - Provider: Terra Heart, SAIM)1926 (Given - Provider: Terra Heart, SAMI) 0427 (Given - Provider: Tati Ahmadi RN)0917 (Given - Provider: Terra Heart, SAMI)1312 (Given - Provider: Terra Heart, SAMI) Polyethylene glycol (MIRALAX) packet 17 g 17 g, Oral, DAILY NEEDED, Starting on 01/16/24 at 0202, Until 01/23/24 at 1752, Constipation 1st Line 1053 ([facility] Hold - Provider: Automatic Transfer - Reason: Transfer to a Procedural area)1414 ([facility] Unhold - Provider: Automatic Transfer) Prochlorperazine (COMPAZINE) injection 10 mg 10 mg, Intravenous, EVERY 6 HOURS NEEDED, Starting on 01/17/24 at 1538, Until 01/23/24 at 1752, Nausea / Vomiting, Refractory Nausea Vomiting, For IV route: dilute dose with 10mL normal saline and give by slow IV push at a rate of 5mg/min. Maximum of 40mg/day. 1053 ([facility] Hold - Provider: Automatic Transfer - Reason: Transfer to a Procedural area)1414 ([facility] Unhold - Provider: Automatic Transfer)2349 (Given - [...] the intermittent or piggy back medication. 1053 ([facility] Hold - Provider: Automatic Transfer - Reason: Transfer to a Procedural area)1414 ([facility] Unhold - Provider: Automatic Transfer) No Frequency Medication Order 01/21/2024 01/22/2024 01/23/2024 Lidocaine (XYLOCAINE) 10 mg/mL injection 1 dose, Starting on 01/23/24 at 1846, Until 01/24/24 at 1900, Created by cabinet override [id number] (Due) Linked Groups Order Group 1: Ondansetron [...] BE BASED ON THE PRIMARY CLINICAL RECORDS. [employer] [facility]. provides no warranty or guarantee of the accuracy or completeness of information in this document.
[2024-04-18 07:14] LABS: Basophils Percent Auto 0.6 % (0.2-2.0); Eosinophils Absolute Auto 0.2 10^3/uL (0.0-0.7); Eosinophils Percent Auto 3.4 % (0.9-7.0); Hematocrit 45.6 % (42.0-54.0); Hemoglobin 14.8 g/dL (14.0-18.0); Immature Granulocytes Abs Auto 0.01 10^3/uL (0.00-0.03); Immature Granulocytes Pct Auto 0.2 % (0.0-0.5); Lymphocytes Absolute Auto 1.5 10^3/uL (1.2-3.8); Lymphocytes Percent Auto 32.8 % (20.5-60.0); Mean Corpuscular HGB Conc 32.5 g/dL (29.9-35.2); Mean Corpuscular Hemoglobin 29.3 pg (25.9-34.0); Mean Corpuscular Volume 90.3 fL (80.0-94.0); Mean Platelet Volume 9.5 fL (9.5-13.5); Monocytes Absolute Auto 0.4 10^3/uL (0.3-0.8); Monocytes Percent Auto 9.4 % (1.7-12.0); Neutrophils Absolute Auto 2.5 10^3/uL (1.4-6.5); Neutrophils Percent Auto 53.6 % (43.0-75.0); Platelet Count 218 10^3/uL (150-450); Red Blood Count 5.05 10^6/uL (4.70-6.10); Red Cell Distribution Width 13.9 % (11.0-15.0); White Blood Count 4.7 10^3/uL (4.0-11.0)
[2024-04-18 08:21] LABS: Creatinine Urine Random 97.34 mg/dL (20.00-300.00); Protein Creatinine Ratio Urine 0.19; Total Protein Urine Random 18.7 mg/dL (<=11.9)
[2024-04-18 09:06] LABS: Alanine Aminotransferase 23 U/L (16-63); Albumin Level 3.9 g/dL (3.4-5.0); Alkaline Phosphatase 127 U/L (46-116); Anion Gap 12.7; Aspartate Amino Transferase 20 U/L (15-37); BUN Creatinine Ratio 14.8; Bilirubin Direct 0.2 mg/dL (0.0-0.2); Calcium 9.6 mg/dL (8.5-10.1); Carbon Dioxide 26.1 mmol/L (21.0-32.0); Chloride 106 mmol/L (98-107); Cholesterol 136 mg/dL (<=200); Estimated GFR (African America >60 (>=60); Estimated GFR (Non-African Ame >60 (>=60); Gamma Glutamyl Transpeptidase 22 U/L (15-85); Glucose 95 mg/dL (74-106); HDL Cholesterol 46 mg/dL (40-60); Magnesium 2.3 mg/dL (1.8-2.4); Phosphorus 3.1 mg/dL (2.6-4.7); Potassium 3.8 mmol/L (3.5-5.1); Sodium 141 mmol/L (136-145); Triglycerides 105 mg/dL (<=150)
[2024-04-20 21:09] LABS: Tacrolimus (FK506), Blood 2.8 ng/mL (2.0-20.0)
== END 2024-04-18 06:40 | disposition home or self-care (01) ==
LOC: LAB 06:41
PROVIDERS: PCP Nurse Practitioner
DX: R79.9 Abnormal finding of blood chemistry, unspecified (principal); Z94.0 Kidney transplant status; Z94.4 Liver transplant status; Z48.298 Encounter for aftercare following other organ transplant
CPT/HCPCS: 36415; 80048; 80061; 80197; 82042; 82247; 82248; 82570; 82977; 83735; 84075; 84100; 84156; 84450; 84460; 85025

== ENCOUNTER 2024-04-26 06:42 | Outpatient (OUT) | payer MEDICARE, MEDICAID, SELFPAY ==
--- OUTSIDE RECORDS SUMMARY | 2024-04-26 06:50 | XMS_ITS | CCD ---
Author Organization [facility] Care Team Providers Care Spray Drier Name Role Phone Kiana Zuly Unavailable Unavailable Primary Care Provider Unavailabl e DILSHAD PATINOL Referring Unavailable KASMANI ROB Referring Unavailable KASMANI, ROB Referring Unavailable RIST, RENA Referring Unavailable TANA CAMPA Referring Unavailable RIST, RENA Referring Unavailable RIST, RENA Referring Unavailable RIST, RENA Referring Unavailable RIST, RENA Referring Unavailable PEPE CASE Attending Unavailable PEPE CASE Admitting Unavailable AICHHOLZ, ZULY Referring Unavailable AICHHOLZ, ZULY Primary Care Unavailable Aichholz [facility], [facility] Primary Care Provider Miguel [facility] Shirin [facility],PharmD, Angel Unavailable Unavailab makayla Leigh [facility],PharmD, Te Unavailable Unavai lable Aichholz [facility] Primary Care Provider MIGUEL CARDONA Attending Unavailable MISC, DR BURCH Admitting Unavailable MISC, DR BURCH Consulting Unavailable AICHHOLZ, TANK BUILDER ZULY Primary Care Unavailable MISC, DR BURCH Attending Unavailable MISC, DR BURCH Admitting Unavailable MISC, DR BURCH Consulting Unavailable AICHHOLZ, TANK BUILDER ZULY Primary Care Unavailable MISC, DR BURCH Attending Unavailable ARCELIA PIZARRO Consulting Unavailable KE BURNHAM Attending Unavailable KE BURNHAM Admitting Unavailable BARBARA, DR MÓNICA Munoz Consulting Unavailable AICHHOLZ, TANK BUILDER ZULY Primary Care Unavailable KE BURNHAM Consulting Unavailable MISC, DR BURCH Consulting Unavailable MISC, DR BURCH Attending Unavailable AICHHOLZ, TANK BUILDER ZULY Primary Care Unavailable MISC, DOCTOR Admitting Unavailable MISC, DR DOCTOR Consulting Unavailable MISC, DR DOCTOR Attending Unavailable AICHOL, [facility] Primary Care Unavailable MISC, DOCTOR Admitting Unavailable MISC, DOCTOR Consulting Unavailable AICHHOL, [facility] Primary Care Unavailable MISC, DOCTOR Admitting Unavailable MISC, DOCTOR Attending Unavailable MELINDA, DR GEORGE Munoz Consulting Unavailable MELINDA, DR GEORGE Munoz Attending Unavailable AICHOL, [facility] Primary Care Unavailable MELINDA, DR GEORGE Munoz Admitting Unavailable NAUN ., KE Consulting Unavailable MIRANDA, LYNDSAY Consulting Unavailable MELINDA, DR GEORGE Munoz Consulting Unavailable NAUN ., KE Attending Unavailable NAUN ., KE Admitting Unavailable AICHHOLZ, [facility] Primary Care Unavailable NAUN ., KE Consulting Unavailable GIAN HERRING Consulting Unavailable AICHHOLZ, [facility] ZULY Consulting Unavailable AICHHOL, TANK BUILDER ZULY Attending Unavailable AICHHOL, TANK BUILDER ZULY Admitting Unavailable AICHOL, [facility] Primary Care Unavailable MISC, DR BURCH Consulting Unavailable MISC, DR BURCH Admitting Unavailable MISC, DOCTOR Attending Unavailable AICHHOL, [facility] Primary Care Unavailable MISC, DR Consulting Unavailable MISC, DOCTOR Attending Unavailable MISC, DOCTOR Admitting Unavailable AICHHOL, [facility] Primary Care Unavailable MISC, DR BURCH Admitting Unavailable MISC, DR BURCH Consulting Unavailable MISC, DOCTOR Attending Unavailable AICHHOL, [facility] Primary Care Unavailable MISC, DOCTOR Admitting Unavailable MISC, DOCTOR Consulting Unavailable [facility], [facility] Primary Care Unavailable MISC, DOCTOR Attending Unavailable MISC, DOCTOR Admitting Unavailable MISC, DOCTOR Consulting Unavailable AICHHOL, [facility] Primary Care Unavailable MISC, DOCTOR Attending Unavailable AICHOL, TANK BUILDER ZULY Consulting Unavailable AICHOL, TANK BUILDER ZULY Attending Unavailable [facility], T[facility]ILDER ZULY Admitting Unavailable [facility], [facility] Primary Care Unavailable DR MÓNICA JIMENEZ Consulting Unavailable Aichholz [facility] Primary Care Provider Milton White DOolas A Unavailable [facility] Primary Care Provider [phone] Bensonchalk DO, Evan A Unavailable Momo Verdugo MD Primary Care Provider Aichholz ROB, Zuly Primary Care Provider AICHHOLZ, ZULY Primary [...] ble AICHHOLZ, ZULY Primary Care Unavailable TARA, KELVIN K Referring Unavailable CANDIE ALMAGUER Attending Unavailable AICHHOLZ, ZULY Primary Care Unavailable CANDIE ALMAGUER Attending Unavailable TARA, KELVIN K Referring Unavailable AICHHOLZ, ZULY Attending Unavailable AICHHOLZ, ZULY Attending Unavailable PALMA PALACIOS Attending Unavailable AICHHOLZ, ZULY Referring Unavailable KELKARENYFIDELINA Attending Unavailable AICHHOLZ, ZULY Referring Unavailable BRJOHNNA WOMACK Attending Unavailable AICHHOLZ, ZULY Referring Unavailable BRJOHNNA WOMACK Attending Unavailable AICHHOLZ, ZULY Referring Unavailable AICHHOLZ, ZULY Attending Unavailable JOHNNA HOLLIDAY Attending Unavailable AICHHOLZ, ZULY Referring Unavailable BRJOHNNA WOMACK Attending Unavailable AICHHOLZ, ZULY Referring Unavailable BAKARIY, FIDELINA Attending Unavailable AICHHOLZ, ZULY Referring Unavailable BRINKJOHNNA Attending Unavailable AICHHOLZ, ZULY Referring Unavailable BRINK, JOHNNA Attending Unavailable ZULY BRUNO Referring Unavailable JOHNNA HOLLIDAY Attending Unavailable ZULY BRUNO Referring Unavailable ZULY BRUNO Attending Unavailable Allergies Allergy Classification Reported Allergen(s) Allergy Type Date of Onset Reaction(s) Facility (1 source) Shellfish; Translations: [SHELLFISH DERIVED] Propensity to adverse reactions (disorder) 8 [facility] Repository (20 sources) Shellfish-Derive d Products Propensity to adverse reactions to drug 9 [facility] (1 source) Shellfish Drug allergy (disorder) [facility] Repository Medications Current Medications Medication Drug Class(es) [...] 1 capsule by mouth once daily b [id number] acid (NEPHROCAPS) 1 MG capsule Take 1 [...] ankle pain. 0 06/12/2020 06/12/2023 Discontinued lactulose 38228 mg powder for oral solution (19 sources) [...] Start: 05-23-2022 take 1 capsule by mo ut once [...] 6 HOURS NEEDED, Starting on 09/04/23 at 0925, Until Thu09/11/23 at 1645, Moderate [...] itraconazole Fax results to: Dr. White - [phone] Transplant Neph - [phone] Each 09/10/2023 01/19/2024 Discontinued (Medication Reconciliation (suppress cancel msg)) Start: 09-10-2023 CUSTOM MEDICAT ION Labs to be obtained: 1- Tacrolimus level, trough - collect twice weekly until 09/24/23, then weekly until 10/08/23, them once every two weeks there after. 2- Itraconazole level - obtain once between 09/14-09/18. 3- Chem 6 - Obtain weekly while on itraconazole Fax results to: Dr. White - [phone] Transplant Neph - [phone] Each 0 09/10/2023 Active Diatrizoate (1 [...] 01/16/2023 Discontinued take 2 tablets by mo [facility] in the morning magnesium oxide [...] (ROXICODONE) tablet 10 mg polyethylene glycol 3350 72882 mg powder for oral solution (20 sources) [...] rate of 5mg/min. Maximum of 40mg/day. sennosides, long-term 8.6 mg oral tablet (1 source) Start: [...] Coronary arteriosclerosis; Translations: [Atherosclerotic heart disease of [place] coronary artery without angina pectoris] Onset: 3 [...] following other organ transplant; Translations: [ENC AFTERCARE FL OT ORGN TRANSPL] Onset: 3 Chronic Other aftercare (1 source) Follow-up status; Translations: [Encounter for follow-up examination after completed treatment for conditions other than malignant neoplasm] Episodic Other aftercare (2 sources) Taking high risk medication; Translations: [Other senior care (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] Episodic Other and ill-defined [...] transplant status; Translations: [Liver transplant status] Onset: Chronic Other lower respiratory disease (1 source) [...] 05-10-2020 Episodic Other aftercare (2 sources) Other roasterman (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; Translations: [OTH 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 VOICER 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 THERAPY] Onset: 07-06-2022 Episodic Other aftercare (1 source) retirement (current) use of aspirin; Translations: [DETENTION CURRENT [...] transplant] Onset: 08-28-2023 Unclassified (1 source) Other roasterman (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; Translations: [Other senior care (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] Onset: 08-28-2023 Unclassified (1 source) Hypertension secondary to other renal disorders; Translations: [Hypertension secondary to other renal disorders] Onset: 08-28-2023 Results Test Name Value Interpretation Reference Range Facility B-TYPE NATRIURETIC PEPTIDE ( BRAIN)on 02-26-2024 Natriuretic peptide B (Bld) [Mass/Vol] 72 pg/mL Normal 0-100 [facility] Comment on above: Performed By: #### B FURNITURE DUSTER ####[facility] (DEFAULT)[address] [place] [address] Interpretation and review of laboratory results Normal [facility] Natriuretic peptide B (Bld) [Mass/Vol] 72 pg/mL 0 - 100 pg/mL [facility] CHEM 6 (LYTES, BUN CREA)on 0 3-29-2024 Anion gap [Moles/Vol] 13 mmol/L Normal 7-17 [facility] Comment on above: Performed By: #### C HM6 ####[facility] (DEFAULT)[address] [place] [address] Chloride [Moles/Vol] 107 mmol/L Normal 98-108 [facility] Comment on above: Performed By: #### C HM6 ####[facility] (DEFAULT)[address] [place] [address] CO2 [Moles/Vol] 25 mmol/L Normal 21-31 [facility] Comment on above: Performed By: #### C HM6 ####[facility] (DEFAULT)[address] [place] [address] Creatinine [Mass/Vol] 1.23 mg/dL Normal 0.70-1.30 [facility] Comment on above: Performed By: #### C HM6 ####[facility] (DEFAULT)[address] [place] [address] GFR/1.73 sq M.predicted among non-blacks MDRD (S/P/Bld) [Vol rate/Area] 70 mL/min/{1.73_m2} Normal >=60 [facility] Comment on above: Result Comment: Repo rted eGFR is based on the CKD-EPI 2020 equation using creatinine, age, and sex. Performed By: #### C HM6 ####[facility] (DEFAULT)[address] [place] [address] Potassium [Moles/Vol] 4.2 mmol/L Normal 3.5-5.0 [facility] Comment on above: Performed By: #### C HM6 ####[facility] (DEFAULT)[address] [facility] [place] [address] Sodium [Moles/Vol] 141 mmol/L Normal 135-145 [facility] Comment on above: Performed By: #### C HM6 ####[facility] (DEFAULT)[address] [place] [address] Urea nitrogen [Mass/Vol] 17 mg/dL Normal 7-25 [facility] Comment on above: Performed By: #### C HM6 ####[facility] (DEFAULT)[address] [place] [address] Urea nitrogen/Creatinine [Mass ratio] 14 mg/mg Normal [facility] Comment on above: Performed By: #### C HM6 ####[facility] (DEFAULT)[address] [place] [address] Anion gap [Moles/Vol] 13 mmol/L 7 - 17 mmol/L [facility] Chloride [Moles/Vol] 107 mmol/L 98 - 10 8 mmol/L [facility] CO2 [Moles/Vol] 25 mmol/L 21 - 31 mmol/L [facility] Creatinine [Mass/Vol] 1.23 mg/dL 0.70 - 1.30 mg/dL [facility] eGFR, CKD-EPI, Male 70 - PINF [facility] Comment on above: Reported eGFR is bas ed on the CKD-EPI 2020 equation using creatinine, age, and sex. Potassium [Moles/Vol] 4.2 mmol/L 3.5 - 5.0 mmol/L [facility] Sodium [Moles/Vol] 141 mmol/L 135 - 145 mmol/L [facility] Urea nitrogen [Mass/Vol] 17 mg/dL 7 - 25 mg/dL [facility] Urea nitrogen/Creatinine [Mass ratio] 14 mg/mg [facility] CBC,PLATELETSon 01-23-2024 Hematocrit (Bld) [Volume fraction] 37.0 % Low 39.6-48.8 [facility] Comment on above: Performed By: #### H EMOGC ####[facility] (DEFAULT)[address] [place] [address] Hemoglobin (Bld) [Mass/Vol] 12.0 g/dL Low 13.4-16.8 [facility] Comment on above: Performed By: #### H EMOGC ####[facility] (DEFAULT)[address] [place] [address] MCV (RBC) [Entitic vol] 88.1 fL Normal 79.0-94.5 [facility] Comment on above: Performed By: #### H EMOGC ####[facility] (DEFAULT)[address] [place] [address] Mean Cell Hgb 28.6 pg Normal 26.1-33.3 [facility] Comment on above: Performed By: #### H EMOGC ####[facility] (DEFAULT)[address] [place] [address] Mean Cell Hgb Conc 32.4 g/dL Normal 31.9-36.5 [facility] Comment on above: Performed By: #### H EMOGC ####[facility] (DEFAULT)[address] [place] [address] Platelet mean volume (Bld) [Entitic vol] 10.4 fL Normal 8.7-12.3 [facility] Comment on above: Performed By: #### H EMOGC ####[facility] (DEFAULT)[address] [facility] [place] [address] Platelets (Bld) [#/Vol] 170 10*3/uL Normal 146-337 [facility] Comment on above: Performed By: #### H EMOGC ####[facility] (DEFAULT)[address] [place] [address] RBC (Bld) [#/Vol] 4.20 10*6/uL Low 4.38-5.83 [facility] Comment on above: Performed By: #### H EMOGC ####[facility] (DEFAULT)[address] [place] [address] RBC Distribution 14.2 % Normal 10.9-14.3 [facility] Comment on above: Performed By: #### H [facility] ####[facility] (DEFAULT)[address] [place] [address] WBC (Bld) [#/Vol] 3.70 10*3/uL Low 3.73-10.10 [facility] Comment on above: Performed By: #### H [facility] ####[facility] (DEFAULT)[address] [place] [address] Erythrocyte distribution width (RBC) [Ratio] 14.2 % 10.9 - 14.3 % [facility] Hematocrit (Bld) [Volume fraction] 37.0 % Low 39.6 - 48.8 % [facility] Hemoglobin (Bld) [Mass/Vol] 12.0 g/dL Low 13.4 - 16.8 g/dL [facility] Interpretation and review of laboratory results Abnormal [facility] MCH (RBC) [Entitic mass] 28.6 pg 26.1 - 33.3 pg [facility] MCHC (RBC) [Mass/Vol] 32.4 g/dL 31.9 - 36.5 g/dL [facility] MCV (RBC) [Entitic vol] 88.1 fL 79.0 - 94.5 fL [facility] Platelet mean volume (Bld) [Entitic vol] 10.4 fL 8.7 - 12.3 fL [facility] Platelets (Bld) [#/Vol] 170 10*3/uL 146 - 337 K/uL [facility] RBC (Bld) [#/Vol] 4.20 10*6/uL Low [facility] WBC (Bld) [#/Vol] 3.70 10*3/uL Low 3.73 - 10. 10 K/uL [facility] CHEM 7 (LYTES,BUN,CREA,GLUC) on 01-23-2024 Anion gap [Moles/Vol] 14 mmol/L Normal 7-17 [facility] Comment on above: Performed By: #### M GO, CHM7, HFP ####[facility] (DEFAULT)[address] [place] [address] Chloride [Moles/Vol] 105 mmol/L Normal 98-108 [facility] Comment on above: Performed By: #### M NATHANIEL BLOOM, HFP ####[facility] (DEFAULT)[address] [place] [address] CO2 [Moles/Vol] 25 mmol/L Normal 21-31 [facility] Comment on above: Performed By: #### M NATHANIEL BLOOM, HFP ####[facility] (DEFAULT)[address] [place] [address] Creatinine [Mass/Vol] 1.32 mg/dL High 0.70-1.30 [facility] Comment on above: Performed By: #### NATHANIEL RAMÍREZ, HFP ####[facility] (DEFAULT)[address] [facility] [place] [address] GFR/1.73 sq M.predicted among non-blacks MDRD (S/P/Bld) [Vol rate/Area] 65 mL/min/{1.73_m2} Normal >=60 [facility] Comment on above: Result Comment: Repo rted eGFR is based on the CKD-EPI 2020 equation using creatinine, age, and sex. Performed By: #### M NATHANIEL BLOOM, HFP ####[facility] (DEFAULT)[address] [facility] [place] [address] Glucose [Mass/Vol] 94 mg/dL Normal 70-99 [facility] Comment on above: Performed By: #### NATHANIEL RAMÍREZ, HFP ####[facility] (DEFAULT)[address] [facility] [place] [address] Osmolality [Osmolality] 296 mosm/kg Normal 278-305 [facility] Comment on above: Performed By: #### NATHANIEL RAMÍREZ, HFP ####[facility] (DEFAULT)[address] [place] [address] Potassium [Moles/Vol] 3.8 mmol/L Normal 3.5-5.0 [facility] Comment on above: Performed By: #### NATHANIEL RAMÍREZ, HFP ####[facility] (DEFAULT)[address] [place] [address] Sodium [Moles/Vol] 140 mmol/L Normal 135-145 [facility] Comment on above: Performed By: #### NATHANIEL RAMÍREZ, HFP ####[facility] (DEFAULT)[address] [place] [address] Urea nitrogen [Mass/Vol] 23 mg/dL Normal 7-25 [facility] Comment on above: Performed By: #### NATHANIEL RAMÍREZ, HFP ####[facility] (DEFAULT)[address] [place] [address] Urea nitrogen/Creatinine [Mass ratio] 17 mg/mg Normal [facility] Comment on above: Performed By: #### NATHANIEL RAMÍREZ, HFP ####[facility] (DEFAULT)[address] [place] [address] Anion gap [Moles/Vol] 14 mmol/L 7 - 17 mmol/L [facility] Chloride [Moles/Vol] 105 mmol/L 98 - 10 8 mmol/L [facility] CO2 [Moles/Vol] 25 mmol/L 21 - 31 mmol/L [facility] Creatinine [Mass/Vol] 1.32 mg/dL High 0.70 - 1.30 mg/dL [facility] eGFR, CKD-EPI, Male 66 - PINF [facility] Comment on above: Reported eGFR is bas ed on the CKD-EPI 2020 equation using creatinine, age, and sex. Glucose [Mass/Vol] 94 mg/dL 70 - 99 mg/dL [facility]olality] [facility] Potassium [Moles/Vol] 3.8 mmol/L 3.5 - 5.0 mmol/L [facility] Sodium [Moles/Vol] 140 mmol/L 135 - 145 mmol/L [facility] Urea nitrogen [Mass/Vol] 23 mg/dL 7 - 25 mg/dL [facility] Urea nitrogen/Creatinine [Mass ratio] 17 mg/mg [facility] GLUCOSE POCon 01-23-2024 Glucose [Mass/Vol] 88 mg/dL 70 - 99 mg/dL [facility] POC Sample Type CAPBL [facility] Test performed at ad dress of the patient encounter. [facility] Glucose [Mass/Vol] 191 mg/dL High 70 - 99 mg/dL [facility] Interpretation and review of laboratory results Abnormal [facility] POC Sample Type CAPBL [facility] Test performed at ad dress of the patient encounter. [facility] HEPATIC FUNCTION PANELon Albumin [Mass/Vol] 3.9 g/dL Normal 3.5-5.0 [facility] Comment on above: Performed By: #### M TJ BLOOM7, HFP ####[facility] (DEFAULT)[address] [place] [address] ALP [Catalytic activity/Vol] 83 U/L Normal 32-126 [facility] Comment on above: Performed By: #### Rod BLOOM CHM7, HFP ####[facility] (DEFAULT)[address] [facility] [place] [address] ALT [Catalytic activity/Vol] 9 U/L Low 10-52 [facility] Comment on above: Performed By: #### M MERLE CHM7, HFP ####[facility] (DEFAULT)[address] [place] [address] AST [Catalytic activity/Vol] 17 U/L Normal 10-39 [facility] Comment on above: Performed By: #### M MERLE CHM7, HFP ####[facility] (DEFAULT)[address] [place] [address] Bilirubin [Mass/Vol] 1.6 mg/dL High <1.5 [facility] Comment on above: Performed By: #### M NATHANIEL BLOOM, HFP ####[facility] (DEFAULT)[address] [place] [address] Bilirubin.indirect [Mass/Vol] 0.4 mg/dL High <0.3 [facility] Comment on above: Performed By: #### NATHANIEL RAMÍREZ, HFP ####[facility] (DEFAULT)[address] [place] [address] Protein [Mass/Vol] 6.6 g/dL Normal 6.4-8.3 [facility] Comment on above: Performed By: #### NATHANIEL RAMÍREZ, HFP ####[facility] (DEFAULT)[address] [place] [address] Albumin [Mass/Vol] 3.9 g/dL 3.5 - 5.0 g/dL [facility] ALP [Catalytic activity/Vol] 83 U/L 32 - 126 U/L [facility] ALT [Catalytic activity/Vol] 9 U/L Low 10 - 52 U/L [facility] AST [Catalytic activity/Vol] 17 U/L 10 - 39 U/L [facility] Bilirubin [Mass/Vol] 1.6 mg/dL High NINF - 1.5 mg/dL [facility] Bilirubin.direct [Mass/Vol] 0.4 mg/dL High NINF - 0.3 mg/dL [facility] Protein [Mass/Vol] 6.6 g/dL 6.4 - 8.3 g/dL [facility] ITRACONAZOLE LEVELon 024 Hydroxyitraconazole [Mass/Vol] 7.6 mcg/mL [facility] [place] Comment on above: REFERENCE VALUE No therapeutic range established; activity and serum concentration are similar to parent drug. ADDITIONAL INFORMATION This test was developed and its performance characteristics determined by [facility] in a manner consistent with CLIA requirements. This test has not been cleared or approved by the U.S. Food and Drug Administration. Test Performed by: [facility] - [facility] [address] [place] [address] Eyeglass Lens Grinder: Rosendo Bose M.D. Ph.D.; CLIA# [id number] Itraconazole [Mass/Vol] 6.0 mcg/mL [facility] Comment on above: REFERENCE VALUE >0.5 (localized infection), >1.0 (systemic infection) [facility] [place] MAGNESIUMon 01-23-2024 Magnesium [Mass/Vol] 1.8 mg/dL Normal 1.6-2.6 [facility] Comment on above: Performed By: #### Rod BLOOM M7, [facility] ####[facility] [place] (DEFAULT)[address] [place] [address] Interpretation and review of laboratory results Normal [facility] Magnesium [Mass/Vol] 1.8 mg/dL 1.6 - 2 .6 mg/dL [facility] No Panel Informationon 01-23 Interpretation and review of laboratory results Abnormal [facility] TACROLIMUS LEVEL, TROUGH (MT E DRUG LEVEL)on 01-23-2024 Interpretation and review of laboratory results Normal [facility] Tacrolimus (Bld) [Mass/Vol] 7.0 ng/mL Bone Marrow Transplant: 4.0-12.0, Therapeutic: 5.0-15.0 [facility] [place] Method performed is a chemiluminescent microparticle immunoasssay on the [employer] i2000. The range is based on experience at [facility] and users should be aware that target concentrations vary widely depending on concomitant therapy, time post-transplant, and desired degree of immunosuppression. [facility] Tacrolimus, Trough 7.0 ng/mL Normal Bone Susana ow Transplant: 4.0-12.0, Therapeutic: 5.0-15.0 [facility] Comment on above: Order Comment: Pleas e draw at specified interval PRIOR to dose. Do not hold dose to wait for level. Specimens batched twice per day, (M-F) and once per day weekendsMethod performed is a chemiluminescent microparticle immunoasssay on the [employer] i2000.The range is based on experience at [facility] and users should be aware that target concentrations vary widely depending on concomitant therapy, time post-transplant, and desired degree of immunosuppression. Performed By: #### T ACRO ####[facility] [place] (DEFAULT)[address] [place] [address] CARDIAC RHYTHM (SCANNED)on 0 01-22-2024 [facility] CBC,PLATELETSon 01-22-2024 Hematocrit (Bld) [Volume fraction] 41.5 % Normal 39.6-48.8 [facility] Comment on above: Performed By: #### H EMO ####[facility] [place] (DEFAULT)[address] [place] [address] Hemoglobin (Bld) [Mass/Vol] 13.3 g/dL Low 13.4-16.8 [facility] Comment on above: Performed By: #### H EMOGC ####[facility] [place] (DEFAULT)[address] [place] [address] MCV (RBC) [Entitic vol] 86.8 fL Normal 79.0-94.5 [facility] Comment on above: Performed By: #### H EMOGC ####[facility] [place] (DEFAULT)[address] [place] [address] Mean Cell Hgb 27.8 pg Normal 26.1-33.3 [facility] Comment on above: Performed By: #### H EMOGC ####[facility] [place] (DEFAULT)[address] [facility] [address] Mean Cell Hgb Conc 32.0 g/dL Normal 31.9-36.5 [facility] Comment on above: Performed By: #### H EMOGC ####[facility] [place] (DEFAULT)[address] [place] [address] Platelet mean volume (Bld) [Entitic vol] 10.5 fL Normal 8.7-12.3 [facility] Comment on above: Performed By: #### H EMOGC ####[facility] (DEFAULT)[address] [place] [address] Platelets (Bld) [#/Vol] 186 10*3/uL Normal 146-337 [facility] Comment on above: Performed By: #### H EMO ####[facility] [place] (DEFAULT)[address] [place] [address] RBC (Bld) [#/Vol] 4.78 10*6/uL Normal 4.38-5.83 [facility] Comment on above: Performed By: #### H EMO ####[facility] (DEFAULT)[address] [place] [address] RBC Distribution 14.1 % Normal 10.9-14.3 [facility] Comment on above: Performed By: #### H EMOGC ####[facility] (DEFAULT)[address] [place] [address] WBC (Bld) [#/Vol] 3.74 10*3/uL Normal 3.73-10.10 [facility] Comment on above: Performed By: #### H EMOGC ####[facility] (DEFAULT)[address] [place] [address] Erythrocyte distribution width (RBC) [Ratio] 14.1 % 10.9 - 14.3 % [facility] Hematocrit (Bld) [Volume fraction] 41.5 % 39.6 - 48.8 % [facility] Hemoglobin (Bld) [Mass/Vol] 13.3 g/dL Low 13.4 - 16.8 g/dL [facility] Interpretation and review of laboratory results Abnormal [facility] MCH (RBC) [Entitic mass] 27.8 pg 26.1 - 33.3 pg [facility] MCHC (RBC) [Mass/Vol] 32.0 g/dL 31.9 - 36.5 g/dL [facility] MCV (RBC) [Entitic vol] 86.8 fL 79.0 - 94.5 fL [facility] [place] Platelet mean volume (Bld) [Entitic vol] 10.5 fL 8.7 - 12.3 fL [facility] [place] Platelets (Bld) [#/Vol] 186 10*3/uL 146 - 337 K/uL [facility] RBC (Bld) [#/Vol] 4.78 10*6/uL [facility] WBC (Bld) [#/Vol] 3.74 10*3/uL 3.73 - 10. 10 K/uL [facility] CHEM 7 (LYTES,BUN,CREA,GLUC) on 01-22-2024 Anion gap [Moles/Vol] 13 mmol/L Normal 7-17 [facility] Comment on above: Performed By: #### TJ RAMÍREZ7 ####[facility] (DEFAULT)[address] [place] [address] Chloride [Moles/Vol] 109 mmol/L High 98-108 [facility] Comment on above: Performed By: #### TJ RAMÍREZ7 ####[facility] (DEFAULT)[address] [place] [address] CO2 [Moles/Vol] 23 mmol/L Normal 21-31 [facility] Comment on above: Performed By: #### TJ RAMÍREZ7 ####[facility] (DEFAULT)[address] [place] [address] Creatinine [Mass/Vol] 1.10 mg/dL Normal 0.70-1.30 [facility] Comment on above: Performed By: #### TJ RAMÍREZ7 ####[facility] (DEFAULT)[address] [facility] [place] [address] GFR/1.73 sq M.predicted among non-blacks MDRD (S/P/Bld) [Vol rate/Area] 81 mL/min/{1.73_m2} Normal >=60 [facility] Comment on above: Result Comment: Repo rted eGFR is based on the CKD-EPI 2020 equation using creatinine, age, and sex. Performed By: #### TJ RAMÍREZ7 ####[facility] (DEFAULT)[address] [place] [address] Glucose [Mass/Vol] 84 mg/dL Normal 70-99 [facility] Comment on above: Performed By: #### NATHANIEL RAMÍREZ ####[facility] (DEFAULT)[address] [place] [address] Osmolality [Osmolality] 295 mosm/kg Normal 278-305 [facility] Comment on above: Performed By: #### NATHANIEL RAMÍREZ ####[facility] (DEFAULT)[address] [place] [address] Potassium [Moles/Vol] 4.0 mmol/L Normal 3.5-5.0 [facility] Comment on above: Performed By: #### TJ RAMÍREZ7 ####[facility] (DEFAULT)[address] [place] [address] Sodium [Moles/Vol] 141 mmol/L Normal 135-145 [facility] Comment on above: Performed By: #### TJ RAMÍREZ7 ####[facility] (DEFAULT)[address] [place] [address] Urea nitrogen [Mass/Vol] 16 mg/dL Normal 7-25 [facility] Comment on above: Performed By: #### TJ RAMÍREZ7 ####[facility] (DEFAULT)[address] [place] [address] Urea nitrogen/Creatinine [Mass ratio] 15 mg/mg Normal [facility] Comment on above: Performed By: #### Rod BLOOM CHM7 ####[facility] (DEFAULT)[address] [place] [address] Anion gap [Moles/Vol] 13 mmol/L 7 - 17 mmol/L [facility] Chloride [Moles/Vol] 109 mmol/L High 98 - 10 8 mmol/L [facility] CO2 [Moles/Vol] 23 mmol/L 21 - 31 mmol/L [facility] Creatinine [Mass/Vol] 1.10 mg/dL 0.70 - 1.30 mg/dL [facility] eGFR, CKD-EPI, Male 81 - PINF [facility] Comment on above: Reported eGFR is bas ed on the CKD-EPI 2020 equation using creatinine, age, and sex. Glucose [Mass/Vol] 84 mg/dL 70 - 99 mg/dL [facility] Interpretation and review of laboratory results Abnormal [facility] Osmolality Calc [Osmolality] 295 [facility] Potassium [Moles/Vol] 4.0 mmol/L 3.5 - 5.0 mmol/L [facility] Sodium [Moles/Vol] 141 mmol/L 135 - 145 mmol/L [facility] Urea nitrogen [Mass/Vol] 16 mg/dL 7 - 25 mg/dL [facility] Urea nitrogen/Creatinine [Mass ratio] 15 mg/mg [facility] MAGNESIUMon 01-22-2024 Magnesium [Mass/Vol] 2.0 mg/dL Normal 1.6-2.6 [facility] Comment on above: Performed By: #### TJ RAMÍREZ7 ####[facility] (DEFAULT)[address] [place] [address] Interpretation and review of laboratory results Normal [facility] Magnesium [Mass/Vol] 2.0 mg/dL 1.6 - 2 .6 mg/dL [facility] No Panel Informationon 01-22 [facility] PT,INR,PTTon 01-22-2024 aPTT Coag (Bld) [Time] 29.2 s Normal 24.0-34.3 [facility] Comment on above: Performed By: #### P TPTT ####[facility] (DEFAULT)[address] [place] [address] INR Coag (PPP) [Relative time] 1.1 {INR} Normal 0.9-1.1 [facility] Comment on above: Performed By: #### P TPTT ####[facility] (DEFAULT)[address] [place] [address] PT Coag (PPP) [Time] 14.3 s High 11.9-14.2 [facility] Comment on above: Performed By: #### P TPTT ####[facility] (DEFAULT)[address] [facility] [place] [address] aPTT Coag (PPP) [Time] 29.2 s [facility] INR Coag (Bld) [Relative time] 1.1 {INR} 0.9 - 1.1 [facility] Interpretation and review of laboratory results Abnormal [facility] PT Coag (PPP) [Time] 14.3 s High [facility] TACROLIMUS LEVEL, TROUGH (MT E DRUG LEVEL)Ordered By: Sheree Jensen on 01-22-2024 Interpretation and review of laboratory results Normal [facility] Tacrolimus (Bld) [Mass/Vol] 7.9 ng/mL Bone Marrow Transplant: 4.0-12.0, Therapeutic: 5.0-15.0 [facility] Method performed is a chemiluminescent microparticle immunoasssay on the [employer]ographer i2000. The range is based on experience at [facility] and users should be aware that target concentrations vary widely depending on concomitant therapy, time post-transplant, and desired degree of immunosuppression. [facility] TACROLIMUS LEVEL, TROUGH (MT E DRUG LEVEL)on 01-22-2024 Tacrolimus, Trough 7.9 ng/mL Normal Bone Susana ow Transplant: 4.0-12.0, Therapeutic: 5.0-15.0 [facility] Comment on above: Order Comment: Pleas e draw at specified interval PRIOR to dose. Do not hold dose to wait for level. Specimens batched twice per day, (M-F) and once per day weekendsMethod performed is a chemiluminescent microparticle immunoasssay on the [employer] i2000.The range is based on experience at [facility] and users should be aware that target concentrations vary widely depending on concomitant therapy, time post-transplant, and desired degree of immunosuppression. Performed By: #### T ACRO ####[facility] (DEFAULT)[address] [place] [address] TYPE AND SCREENon 01-22-2024 ABO/RH(D) TYPE Positive [facility] ABO/RH(D) TYPE Positive Normal [facility] Comment on above: Performed By: #### X M ####[facility] (DEFAULT)[address] [place] [address] [place] Unspecified body regionOr dered By: Unassigned Pacs on 01-22-2024 [facility] Work Phone: [place] Unspecified body regionon 01-22-2024 Radiology Study observation (narrative) [facility] CBC,PLATELETSon 01-21-2024 Hematocrit (Bld) [Volume fraction] 39.4 % Low 39.6-48.8 [facility] Comment on above: Performed By: #### H [facility] ####[facility] (DEFAULT)[address] [place] [address] Hemoglobin (Bld) [Mass/Vol] 12.7 g/dL Low 13.4-16.8 [facility] Comment on above: Performed By: #### H EMOGC ####[facility] [place] (DEFAULT)[address] [place] [address] MCV (RBC) [Entitic vol] 87.0 fL Normal 79.0-94.5 [facility] Comment on above: Performed By: #### H EMOGC ####[facility] (DEFAULT)[address] [place] [address] Mean Cell Hgb 28.0 pg Normal 26.1-33.3 [facility] Comment on above: Performed By: #### H EMOGC ####[facility] [place] (DEFAULT)[address] [facility] [address] Mean Cell Hgb Conc 32.2 g/dL Normal 31.9-36.5 [facility] Comment on above: Performed By: #### H EMOGC ####[facility] (DEFAULT)[address] [facility] [address] Platelet mean volume (Bld) [Entitic vol] 10.2 fL Normal 8.7-12.3 [facility] Comment on above: Performed By: #### H EMOGC ####[facility] [place] (DEFAULT)[address] [place] [address] Platelets (Bld) [#/Vol] 157 10*3/uL Normal 146-337 [facility] Comment on above: Performed By: #### H EMOGC ####[facility] (DEFAULT)[address] [facility] [place] [address] RBC (Bld) [#/Vol] 4.53 10*6/uL Normal 4.38-5.83 [facility] Comment on above: Performed By: #### H EMOGC ####[facility] (DEFAULT)[address] [place] [address] RBC Distribution 14.0 % Normal 10.9-14.3 [facility] Comment on above: Performed By: #### H EMOGC ####[facility] (DEFAULT)[address] [place] [address] WBC (Bld) [#/Vol] 3.42 10*3/uL Low 3.73-10.10 [facility] Comment on above: Performed By: #### H [facility] ####[facility] (DEFAULT)[address] [place] [address] Erythrocyte distribution width (RBC) [Ratio] 14.0 % 10.9 - 14.3 % [facility] Hematocrit (Bld) [Volume fraction] 39.4 % Low 39.6 - 48.8 % [facility] Hemoglobin (Bld) [Mass/Vol] 12.7 g/dL Low 13.4 - 16.8 g/dL [facility] Interpretation and review of laboratory results Abnormal [facility] MCH (RBC) [Entitic mass] 28.0 pg 26.1 - 33.3 pg [facility] MCHC (RBC) [Mass/Vol] 32.2 g/dL 31.9 - 36.5 g/dL [facility] MCV (RBC) [Entitic vol] 87.0 fL 79.0 - 94.5 fL [facility] Platelet mean volume (Bld) [Entitic vol] 10.2 fL 8.7 - 12.3 fL [facility] Platelets (Bld) [#/Vol] 157 10*3/uL 146 - 337 K/uL [facility] RBC (Bld) [#/Vol] 4.53 10*6/uL [facility] WBC (Bld) [#/Vol] 3.42 10*3/uL Low 3.73 - 10. 10 K/uL [facility] CHEM 7 (LYTES,BUN,CREA,GLUC) on 01-21-2024 Anion gap [Moles/Vol] 12 mmol/L Normal 7-17 [facility] Comment on above: Performed By: #### M NATHANIEL BLOOM ####[facility] (DEFAULT)[address] [place] [address] Chloride [Moles/Vol] 107 mmol/L Normal 98-108 [facility] Comment on above: Performed By: #### M MERLE CHM7 ####[facility] (DEFAULT)[address] [place] [address] CO2 [Moles/Vol] 26 mmol/L Normal 21-31 [facility] Comment on above: Performed By: #### Rod BLOOM CHM7 ####[facility] (DEFAULT)[address] [place] [address] Creatinine [Mass/Vol] 1.11 mg/dL Normal 0.70-1.30 [facility] Comment on above: Performed By: #### TJ RAMÍREZ7 ####[facility] (DEFAULT)[address] [place] [address] GFR/1.73 sq M.predicted among non-blacks MDRD (S/P/Bld) [Vol rate/Area] 80 mL/min/{1.73_m2} Normal >=60 [facility] Comment on above: Result Comment: Repo rted eGFR is based on the CKD-EPI 2020 equation using creatinine, age, and sex. Performed By: #### NATHANIEL RAMÍREZ ####[facility] (DEFAULT)[address] [facility] [place] [address] Glucose [Mass/Vol] 93 mg/dL Normal 70-99 [facility] Comment on above: Performed By: #### TJ RAMÍREZ7 ####[facility] (DEFAULT)[address] [place] [address] Osmolality [Osmolality] 295 mosm/kg Normal 278-305 [facility] Comment on above: Performed By: #### TJ RAMÍREZ7 ####[facility] (DEFAULT)[address] [place] [address] Potassium [Moles/Vol] 3.9 mmol/L Normal 3.5-5.0 [facility] Comment on above: Performed By: #### TJ RAMÍREZ7 ####[facility] (DEFAULT)[address] [place] [address] Sodium [Moles/Vol] 141 mmol/L Normal 135-145 [facility] Comment on above: Performed By: #### TJ RAMÍREZ7 ####[facility] (DEFAULT)[address] [facility] [place] [address] Urea nitrogen [Mass/Vol] 15 mg/dL Normal 7-25 [facility] Comment on above: Performed By: #### TJ RAMÍREZ7 ####[facility] (DEFAULT)[address] [place] [address] Urea nitrogen/Creatinine [Mass ratio] 14 mg/mg Normal [facility] Comment on above: Performed By: #### TJ RAMÍREZ7 ####[facility] (DEFAULT)[address] [place] [address] Anion gap [Moles/Vol] 12 mmol/L 7 - 17 mmol/L [facility] Chloride [Moles/Vol] 107 mmol/L 98 - 10 8 mmol/L [facility] CO2 [Moles/Vol] 26 mmol/L 21 - 31 mmol/L [facility] Creatinine [Mass/Vol] 1.11 mg/dL 0.70 - 1.30 mg/dL [facility] eGFR, CKD-EPI, Male 80 - PINF [facility] Comment on above: Reported eGFR is bas ed on the CKD-EPI 2020 equation using creatinine, age, and sex. Glucose [Mass/Vol] 93 mg/dL 70 - 99 mg/dL [facility] Osmolality Calc [Osmolality] 295 [facility] Potassium [Moles/Vol] 3.9 mmol/L 3.5 - 5.0 mmol/L [facility] Sodium [Moles/Vol] 141 mmol/L 135 - 145 mmol/L [facility] Urea nitrogen [Mass/Vol] 15 mg/dL 7 - 25 mg/dL [facility] Urea nitrogen/Creatinine [Mass ratio] 14 mg/mg [facility] Cardiac catheterization stud yOrdered By: Kelvin Donohue on 01-21-2024 Body surface area Derived from formula 2.08 m2 [facility] Work Phone: [facility] Work Phone: Cardiac catheterization stud yon 01-21-2024 [...] with fistula occlusion Kelvin Donohue MD, MPH School Manager of Internal Medicine. Section of Advanced Heart Failure and Transplantation Division of Cardiovascular Diseases [facility] [email or web address] INVASIVE CARDIOVASCULAR PROC EDUREon 01-21-2024 INVASIVE CARDIOVASCULAR PROCEDURE Normal [facility] MAGNESIUMon 01-21-2024 Magnesium [Mass/Vol] 1.5 mg/dL Low 1.6-2.6 [facility] Comment on above: Performed By: #### M HELEN BLOOM7 ####[facility] (DEFAULT)[address] [place] [address] Interpretation and review of laboratory results Abnormal [facility] Magnesium [Mass/Vol] 1.5 mg/dL Low 1.6 - 2 .6 mg/dL [facility] No Panel Informationon 01-21 [facility] [facility] TACROLIMUS LEVEL, TROUGH (MT E DRUG LEVEL)on 01-21-2024 Interpretation and review of laboratory results Normal [facility] Tacrolimus (Bld) [Mass/Vol] 7.2 ng/mL Bone Marrow Transplant: 4.0-12.0, Therapeutic: 5.0-15.0 [facility] Method performed is a chemiluminescent microparticle immunoasssay on the [employer] i2000. The range is based on experience at [facility] and users should be aware that target concentrations vary widely depending on concomitant therapy, time post-transplant, and desired degree of immunosuppression. [facility] Tacrolimus, Trough 7.2 ng/mL Normal Bone Susana ow Transplant: 4.0-12.0, Therapeutic: 5.0-15.0 [facility] Comment on above: Order Comment: Pleas e draw at specified interval PRIOR to dose. Do not hold dose to wait for level. Specimens batched twice per day, (M-F) and once per day weekendsMethod performed is a chemiluminescent microparticle immunoasssay on the [employer] i2000.The range is based on experience at [facility] and users should be aware that target concentrations vary widely depending on concomitant therapy, time post-transplant, and desired degree of immunosuppression. Performed By: #### T ACRO ####[facility] (DEFAULT)[address] [place] [address] CBC,PLATELETSon 01-20-2024 Hematocrit (Bld) [Volume fraction] 38.9 % Low 39.6-48.8 [facility] Comment on above: Performed By: #### [facility] ####[facility] (DEFAULT)[address] [place] [address] Hemoglobin (Bld) [Mass/Vol] 12.5 g/dL Low 13.4-16.8 [facility] Comment on above: Performed By: #### [facility] ####[facility] (DEFAULT)[address] [place] [address] MCV (RBC) [Entitic vol] 87.2 fL Normal 79.0-94.5 [facility] Comment on above: Performed By: #### [facility] ####[facility] (DEFAULT)[address] [place] [address] Mean Cell Hgb 28.0 pg Normal 26.1-33.3 [facility] Comment on above: Performed By: #### H EMOGC ####[facility] (DEFAULT)[address] [place] [address] Mean Cell Hgb Conc 32.1 g/dL Normal 31.9-36.5 [facility] Comment on above: Performed By: #### H EMOGC ####[facility] (DEFAULT)[address] [facility] [place] [address] Platelet mean volume (Bld) [Entitic vol] 10.2 fL Normal 8.7-12.3 [facility] Comment on above: Performed By: #### H EMOGC ####[facility] (DEFAULT)[address] [facility] [address] Platelets (Bld) [#/Vol] 166 10*3/uL Normal 146-337 [facility] Comment on above: Performed By: #### H EMOGC ####[facility] (DEFAULT)[address] [facility] [place] [address] RBC (Bld) [#/Vol] 4.46 10*6/uL Normal 4.38-5.83 [facility] Comment on above: Performed By: #### H EMOGC ####[facility] (DEFAULT)[address] [facility] [place] [address] RBC Distribution 13.8 % Normal 10.9-14.3 [facility] Comment on above: Performed By: #### H EMOGC ####[facility] (DEFAULT)[address] [place] [address] WBC (Bld) [#/Vol] 3.79 10*3/uL Normal 3.73-10.10 [facility] Comment on above: Performed By: #### H EMOGC ####[facility] (DEFAULT)[address] [place] [address] Erythrocyte distribution width (RBC) [Ratio] 13.8 % 10.9 - 14.3 % [facility] Hematocrit (Bld) [Volume fraction] 38.9 % Low 39.6 - 48.8 % [facility] Hemoglobin (Bld) [Mass/Vol] 12.5 g/dL Low 13.4 - 16.8 g/dL [facility] Interpretation and review of laboratory results Abnormal [facility] MCH (RBC) [Entitic mass] 28.0 pg 26.1 - 33.3 pg [facility] MCHC (RBC) [Mass/Vol] 32.1 g/dL 31.9 - 36.5 g/dL [facility] MCV (RBC) [Entitic vol] 87.2 fL 79.0 - 94.5 fL [facility] Platelet mean volume (Bld) [Entitic vol] 10.2 fL 8.7 - 12.3 fL [facility] Platelets (Bld) [#/Vol] 166 10*3/uL 146 - 337 K/uL [facility] RBC (Bld) [#/Vol] 4.46 10*6/uL [facility] WBC (Bld) [#/Vol] 3.79 10*3/uL 3.73 - 10. 10 K/uL [facility] CHEM 7 (LYTES,BUN,CREA,GLUC) on 01-20-2024 Anion gap [Moles/Vol] 12 mmol/L Normal 7-17 [facility] Comment on above: Performed By: #### NATHANIEL RAMÍREZ, HFP ####[facility] (DEFAULT)[address] [place] [address] Chloride [Moles/Vol] 105 mmol/L Normal 98-108 [facility] Comment on above: Performed By: #### NATHANIEL RAMÍREZ, HFP ####[facility] (DEFAULT)[address] [place] [address] CO2 [Moles/Vol] 28 mmol/L Normal 21-31 [facility] Comment on above: Performed By: #### NATHANIEL RAMÍREZ, HFP ####[facility] (DEFAULT)[address] [place] [address] Creatinine [Mass/Vol] 1.12 mg/dL Normal 0.70-1.30 [facility] Comment on above: Performed By: #### NATHANIEL RAMÍREZ, HFP ####[facility] (DEFAULT)[address] [place] [address] GFR/1.73 sq M.predicted among non-blacks MDRD (S/P/Bld) [Vol rate/Area] 79 mL/min/{1.73_m2} Normal >=60 [facility] Comment on above: Result Comment: Repo rted eGFR is based on the CKD-EPI 2020 equation using creatinine, age, and sex. Performed By: #### NATHANIEL RAMÍREZ, HFP ####[facility] (DEFAULT)[address] [place] [address] Glucose [Mass/Vol] 88 mg/dL Normal 70-99 [facility] Comment on above: Performed By: #### NATHANIEL RAMÍREZ, HFP ####[facility] (DEFAULT)[address] [facility] [address] Osmolality [Osmolality] 294 mosm/kg Normal 278-305 [facility] Comment on above: Performed By: #### NATHANIEL RAMÍREZ, HFP ####[facility] (DEFAULT)[address] [place] [address] Potassium [Moles/Vol] 3.8 mmol/L Normal 3.5-5.0 [facility] Comment on above: Performed By: #### NATHANIEL RAMÍREZ, HFP ####[facility] (DEFAULT)[address] [facility] [address] Sodium [Moles/Vol] 141 mmol/L Normal 135-145 [facility] Comment on above: Performed By: #### M TJ BLOOM7, HFP ####[facility] (DEFAULT)[address] [place] [address] Urea nitrogen [Mass/Vol] 15 mg/dL Normal 7-25 [facility] Comment on above: Performed By: #### M TJ BLOOM7, HFP ####[facility] (DEFAULT)[address] [place] [address] Urea nitrogen/Creatinine [Mass ratio] 13 mg/mg Normal [facility] Comment on above: Performed By: #### M TJ BLOOM7, HFP ####[facility] (DEFAULT)[address] [place] [address] Anion gap [Moles/Vol] 12 mmol/L 7 - 17 mmol/L [facility] Chloride [Moles/Vol] 105 mmol/L 98 - 10 8 mmol/L [facility] CO2 [Moles/Vol] 28 mmol/L 21 - 31 mmol/L [facility] Creatinine [Mass/Vol] 1.12 mg/dL 0.70 - 1.30 mg/dL [facility] eGFR, CKD-EPI, Male 79 - PINF [facility] Comment on above: Reported eGFR is bas ed on the CKD-EPI 2020 equation using creatinine, age, and sex. Glucose [Mass/Vol] 88 mg/dL 70 - 99 mg/dL [facility] Osmolality Calc [Osmolality] 294 [facility] Potassium [Moles/Vol] 3.8 mmol/L 3.5 - 5.0 mmol/L [facility] Sodium [Moles/Vol] 141 mmol/L 135 - 145 mmol/L [facility] Urea nitrogen [Mass/Vol] 15 mg/dL 7 - 25 mg/dL [facility] Urea nitrogen/Creatinine [Mass ratio] 13 mg/mg [facility] Cardiac catheterization stud yon 01-20-2024 [facility] Radiology Study observation (narrative) [facility] Radiology Study observation (narrative) [facility] EBV BY PCR, QUANTITATIVE,BLO ODOrdered By: Charlotte Jensen on 01-20-2024 EBV DNA ESTELITA+probe (Unsp spec) [#/Vol] JUSTINShorty [facility] Interpretation and review of laboratory results Normal [facility] This test was perfor med using a real time PCR assay. The dynamic range for this assay is 1000-5,000,000 IU/mL. A result <1000 IU/mL does not rule out the presence of EBV DNA in quantities below the sensitivity of this assay. This test was developed and its performance characteristics determined by [facility]. It has not been cleared or approved by the FDA. The laboratory is regulated under CLIA as qualified to perform high-complexity testing. This test is used for clinical purposes. It should not be regarded as investigational or for research. [facility] HEPATIC FUNCTION PANELon Albumin [Mass/Vol] 3.7 g/dL Normal 3.5-5.0 [facility] Comment on above: Performed By: #### M HELEN BLOOMM7, HFP ####[facility] (DEFAULT)[address] [place] [address] ALP [Catalytic activity/Vol] 73 U/L Normal 32-126 [facility] Comment on above: Performed By: #### M MERLE CHM7, HFP ####[facility] (DEFAULT)[address] [place] [address] ALT [Catalytic activity/Vol] 12 U/L Normal 10-52 [facility] Comment on above: Performed By: #### M MERLE CHM7, HFP ####[facility] (DEFAULT)[address] [facility] [address] AST [Catalytic activity/Vol] 19 U/L Normal 10-39 [facility] Comment on above: Performed By: #### M MERLE CHM7, HFP ####[facility] (DEFAULT)[address] [place] [address] Bilirubin [Mass/Vol] 2.1 mg/dL High <1.5 [facility] Comment on above: Performed By: #### M NATHANIEL BLOOM, HFP ####[facility] (DEFAULT)[address] [place] [address] Bilirubin.indirect [Mass/Vol] 0.5 mg/dL High <0.3 [facility] Comment on above: Performed By: #### NATHANIEL RAMÍREZ, HFP ####[facility] (DEFAULT)[address] [place] [address] Protein [Mass/Vol] 6.1 g/dL Low 6.4-8.3 [facility] Comment on above: Performed By: #### NATHANIEL RAMÍREZ, HFP ####[facility] (DEFAULT)[address] [place] [address] Albumin [Mass/Vol] 3.7 g/dL 3.5 - 5.0 g/dL [facility] ALP [Catalytic activity/Vol] 73 U/L 32 - 126 U/L [facility] ALT [Catalytic activity/Vol] 12 U/L 10 - 52 U/L [facility] AST [Catalytic activity/Vol] 19 U/L 10 - 39 U/L [facility] Bilirubin [Mass/Vol] 2.1 mg/dL High NINF - 1.5 mg/dL [facility] Bilirubin.direct [Mass/Vol] 0.5 mg/dL High NINF - 0.3 mg/dL [facility] Interpretation and review of laboratory results Abnormal [facility] Protein [Mass/Vol] 6.1 g/dL Low 6.4 - 8.3 g/dL [facility] ITRACONAZOLE LEVELon 01-20- 024 Hydroxyitraconazole 7.6 mcg/mL Normal [facility] Comment on above: Order Comment: Dilan e draw level at specified interval PRIOR to dose. Result Comment: ---- REFERENCE VALUE No therapeutic range established; activity and serumconcentration are similar to parent drug. ADDITIONAL INFORMATION This test was developed and its performance characteristicsdetermined by [facility] in a manner consistent with CLIArequirements. This test has not been cleared or approved bythe U.S. Food and Drug Administration.Test Performed by:[facility] [place] [id number] Director: Rosendo Bose M.D. Ph.D.; CLIA# [id number] Performed By: #### Y ITCON ####[facility] (DEFAULT)[address] [place] [address] Itraconazole 6.0 mcg/mL Normal [facility] Comment on above: Order Comment: Pleas e draw level at specified interval PRIOR to dose. Result Comment: ---- REFERENCE VALUE-------------------------->0.5 (localized infection), >1.0 (systemic infection) Performed By: #### Y ITCON ####[facility] (DEFAULT)[address] [place] [address] MAGNESIUMon 01-20-2024 Magnesium [Mass/Vol] 1.6 mg/dL Normal 1.6-2.6 [facility] Comment on above: Performed By: #### Rod BLOOM, CHM7, [facility] ####[facility] (DEFAULT)[address] [place] [address] Interpretation and review of laboratory results Normal [facility] Magnesium [Mass/Vol] 1.6 mg/dL 1.6 - 2 .6 mg/dL [facility] No Panel Informationon 01-20 [facility] POCT CO-OXIMETRYon Hemoglobin (Bld) [Mass/Vol] 12.8 g/dL Low 13.4 - 16.8 g/dL [facility] Interpretation and review of laboratory results Abnormal [facility] Oxyhemoglobin 69 % Low 94 - 98 % [facility] Ordering physician notified. Test performed at address of the patient encounter. [facility] Hemoglobin (Bld) [Mass/Vol] 13.3 g/dL Low 13.4 - 16.8 g/dL [facility] Interpretation and review of laboratory results Abnormal [facility] Oxyhemoglobin 69 % Low 94 - 98 % [facility] Ordering physician notified. Test performed at address of the patient encounter. [facility] PT,INR,PTTon 01-20-2024 aPTT Coag (Bld) [Time] 30.6 s Normal 24.0-34.3 [facility] Comment on above: Performed By: #### P TPTT ####[facility] (DEFAULT)[address] [place] [address] INR Coag (PPP) [Relative time] 1.2 {INR} High 0.9-1.1 [facility] Comment on above: Performed By: #### P TPTT ####[facility] (DEFAULT)[address] [place] [address] PT Coag (PPP) [Time] 15.5 s High 11.9-14.2 [facility] Comment on above: Performed By: #### P TPTT ####[facility] (DEFAULT)[address] [place] [address] aPTT Coag (PPP) [Time] 30.6 s [facility] INR Coag (Bld) [Relative time] 1.2 {INR} High 0.9 - 1.1 [facility] Interpretation and review of laboratory results Abnormal [facility] PT Coag (PPP) [Time] 15.5 s High [facility] TACROLIMUS LEVEL, TROUGH (MT E DRUG LEVEL)Ordered By: Yanira Marcum on 01-20-2024 Interpretation and review of laboratory results Normal [facility] Tacrolimus (Bld) [Mass/Vol] 7.7 ng/mL Bone Marrow Transplant: 4.0-12.0, Therapeutic: 5.0-15.0 [facility] Method performed is a chemiluminescent microparticle immunoasssay on the [employer] i2000. The range is based on experience at [facility] and users should be aware that target concentrations vary widely depending on concomitant therapy, time post-transplant, and desired degree of immunosuppression. [facility] TACROLIMUS LEVEL, TROUGH (MT E DRUG LEVEL)on 01-20-2024 Tacrolimus, Trough 7.7 ng/mL Normal Bone Susana ow Transplant: 4.0-12.0, Therapeutic: 5.0-15.0 [facility] Comment on above: Order Comment: Pleas e draw at specified interval PRIOR to dose. Do not hold dose to wait for level. Specimens batched twice per day, (M-F) and once per day weekendsMethod performed is a chemiluminescent microparticle immunoasssay on the [employer] i2000.The range is based on experience at [facility] and users should be aware that target concentrations vary widely depending on concomitant therapy, time post-transplant, and desired degree of immunosuppression. Performed By: #### T ACRO ####[facility] (DEFAULT)[address] [address] CBC,PLATELETSon 01-19-2024 Hematocrit (Bld) [Volume fraction] 37.5 % Low 39.6-48.8 [facility] Comment on above: Performed By: #### [facility] ####[facility] (DEFAULT)[address] [address] Hemoglobin (Bld) [Mass/Vol] 12.1 g/dL Low 13.4-16.8 [facility] Comment on above: Performed By: #### H [facility] ####[facility] (DEFAULT)[address] [place] [address] MCV (RBC) [Entitic vol] 87.8 fL Normal 79.0-94.5 [facility] Comment on above: Performed By: #### H EMOGC ####[facility] (DEFAULT)[address] [place] [address] Mean Cell Hgb 28.3 pg Normal 26.1-33.3 [facility] Comment on above: Performed By: #### H EMOGC ####[facility] (DEFAULT)[address] [facility] [address] Mean Cell Hgb Conc 32.3 g/dL Normal 31.9-36.5 [facility] Comment on above: Performed By: #### H EMOGC ####[facility] (DEFAULT)[address] [place] [address] Platelet mean volume (Bld) [Entitic vol] 10.4 fL Normal 8.7-12.3 [facility] Comment on above: Performed By: #### H EMOGC ####[facility] (DEFAULT)[address] [facility] [place] [address] Platelets (Bld) [#/Vol] 163 10*3/uL Normal 146-337 [facility] Comment on above: Performed By: #### H EMOGC ####[facility] (DEFAULT)[address] [facility] [place] [address] RBC (Bld) [#/Vol] 4.27 10*6/uL Low 4.38-5.83 [facility] Comment on above: Performed By: #### H EMOGC ####[facility] (DEFAULT)[address] [place] [address] RBC Distribution 13.9 % Normal 10.9-14.3 [facility] Comment on above: Performed By: #### H EMOGC ####[facility] (DEFAULT)[address] [facility] [address] WBC (Bld) [#/Vol] 3.69 10*3/uL Low 3.73-10.10 [facility] Comment on above: Performed By: #### H [facility] ####[facility] (DEFAULT)[address] [place] [address] Erythrocyte distribution width (RBC) [Ratio] 13.9 % 10.9 - 14.3 % [facility] Hematocrit (Bld) [Volume fraction] 37.5 % Low 39.6 - 48.8 % [facility] Hemoglobin (Bld) [Mass/Vol] 12.1 g/dL Low 13.4 - 16.8 g/dL [facility] Interpretation and review of laboratory results Abnormal [facility] MCH (RBC) [Entitic mass] 28.3 pg 26.1 - 33.3 pg [facility] MCHC (RBC) [Mass/Vol] 32.3 g/dL 31.9 - 36.5 g/dL [facility] MCV (RBC) [Entitic vol] 87.8 fL 79.0 - 94.5 fL [facility] Platelet mean volume (Bld) [Entitic vol] 10.4 fL 8.7 - 12.3 fL [facility] Platelets (Bld) [#/Vol] 163 10*3/uL 146 - 337 K/uL [facility] RBC (Bld) [#/Vol] 4.27 10*6/uL Low [facility] WBC (Bld) [#/Vol] 3.69 10*3/uL Low 3.73 - 10. 10 K/uL [facility] CHEM 7 (LYTES,BUN,CREA,GLUC) on 01-19-2024 Anion gap [Moles/Vol] 14 mmol/L Normal 7-17 [facility] Comment on above: Performed By: #### M MERLE, CHM7 ####[facility] (DEFAULT)[address] [place] [address] Chloride [Moles/Vol] 106 mmol/L Normal 98-108 [facility] Comment on above: Performed By: #### NATHANIEL RAMÍREZ ####[facility] (DEFAULT)[address] [place] [address] CO2 [Moles/Vol] 24 mmol/L Normal 21-31 [facility] Comment on above: Performed By: #### NATHANIEL RAMÍREZ ####[facility] (DEFAULT)[address] [place] [address] Creatinine [Mass/Vol] 1.13 mg/dL Normal 0.70-1.30 [facility] Comment on above: Performed By: #### TJ RAMÍREZ7 ####[facility] (DEFAULT)[address] [place] [address], [place] [address] GFR/1.73 sq M.predicted among non-blacks MDRD (S/P/Bld) [Vol rate/Area] 78 mL/min/{1.73_m2} Normal >=60 [facility] Comment on above: Result Comment: Repo rted eGFR is based on the CKD-EPI 2020 equation using creatinine, age, and sex. Performed By: #### NATHANIEL RAMÍREZ ####[facility] (DEFAULT)[address] [place] [address], [place] [address] Glucose [Mass/Vol] 86 mg/dL Normal 70-99 [facility] Comment on above: Performed By: #### NATHANIEL RAMÍREZ ####[facility] (DEFAULT)[address] [place] [address] [place] [address] Osmolality [Osmolality] 293 mosm/kg Normal 278-305 [facility] Comment on above: Performed By: #### NATHANIEL RAMÍREZ ####[facility] (DEFAULT)[address] [place] [address], [place] [address] Potassium [Moles/Vol] 3.8 mmol/L Normal 3.5-5.0 [facility] Comment on above: Performed By: #### TJ RAMÍREZ7 ####[facility] (DEFAULT)[address] [place] [address] Sodium [Moles/Vol] 140 mmol/L Normal 135-145 [facility] Comment on above: Performed By: #### Rod BLOOM CHM7 ####[facility] (DEFAULT)[address] [facility] [address] Urea nitrogen [Mass/Vol] 16 mg/dL Normal 7-25 [facility] Comment on above: Performed By: #### Rod BLOOM CHM7 ####[facility] (DEFAULT)[address] [place] [address] Urea nitrogen/Creatinine [Mass ratio] 14 mg/mg Normal [facility] Comment on above: Performed By: #### Rod BLOOM CHM7 ####[facility] (DEFAULT)[address] [place] [address] Anion gap [Moles/Vol] 14 mmol/L 7 - 17 mmol/L [facility] Chloride [Moles/Vol] 106 mmol/L 98 - 10 8 mmol/L [facility] CO2 [Moles/Vol] 24 mmol/L 21 - 31 mmol/L [facility] Creatinine [Mass/Vol] 1.13 mg/dL 0.70 - 1.30 mg/dL [facility] eGFR, CKD-EPI, Male 79 - PINF [facility] Comment on above: Reported eGFR is bas ed on the CKD-EPI 2020 equation using creatinine, age, and sex. Glucose [Mass/Vol] 86 mg/dL 70 - 99 mg/dL [facility] Osmolality Calc [Osmolality] [facility] Potassium [Moles/Vol] 3.8 mmol/L 3.5 - 5.0 mmol/L [facility] Sodium [Moles/Vol] 140 mmol/L 135 - 145 mmol/L [facility] Urea nitrogen [Mass/Vol] 16 mg/dL 7 - 25 [facility] Urea nitrogen/Creatinine [Mass ratio] 14 mg/mg [facility] EBV BY PCR, QUANTITATIVE,BLO ODon 01-19-2024 Ebv By Pcr, Quant, Blood <1000 Normal <1000 [facility] Comment on above: Order Comment: This test was performed using a real time PCR assay. The dynamic range for this assay is 1000-5,000,000 IU/mL. A result <1000 IU/mL does not rule out the presence of EBV DNA in quantities below the sensitivity of this assay. This test was developed and its performance characteristics determined by [facility]. It has not been cleared or approved by the FDA. The laboratory is regulated under CLIA as qualified to perform high-complexity testing. This test is used for clinical purposes. It should not be regarded as investigational or for research. Performed By: #### E BVPCR ####[facility] (DEFAULT)[address] [place] [address] HISTOPLASMA AND BLASTOMYCES ANTIGEN, ENZYME IMMUNOASSAY, SERMon 01-19-2024 Histoplasma/Blastomy antonia Ag Result Not detected Not Detected [facility] Comment on above: No antigen from Hist oplasma or Blastomyces detected. False negative results may occur depending on extent of disease, and/or site of infection. Repeat testing on a new specimen if clinically indicated. Histoplasma/Blastomy antonia Ag Value Not detected ng/mL [facility] Comment on above: ADDITIONAL INFORMATION This test was developed and its performance characteristics determined by [facility] in a manner consistent with CLIA requirements. This test has not been cleared or approved by the U.S. Food and Drug Administration. Test Performed by: [facility] [address] [place] [address] Eyeglass Lens Grinder: Rosendo Bose M.D. Ph.D.; CLIA# [id number] [facility] MAGNESIUMon 01-19-2024 Magnesium [Mass/Vol] 1.8 mg/dL Normal 1.6-2.6 [facility] Comment on above: Performed By: #### NATHANIEL RAMÍREZ ####[facility] (DEFAULT)[address] [place] [address] Interpretation and review of laboratory results Normal [facility] Magnesium [Mass/Vol] 1.8 mg/dL 1.6 - 2 .6 mg/dL [facility] No Panel Informationon 01-19 [facility] TACROLIMUS LEVEL, TROUGH (MT E DRUG LEVEL)Ordered By: Raymundo Mehta on 01-19-2024 Interpretation and review of laboratory results Normal [facility] Tacrolimus (Bld) [Mass/Vol] 6.8 ng/mL Bone Marrow Transplant: 4.0-12.0, Therapeutic: 5.0-15.0 [facility] Method performed is a chemiluminescent microparticle immunoasssay on the [employer] i2000. The range is based on experience at [facility] and users should be aware that target concentrations vary widely depending on concomitant therapy, time post-transplant, and desired degree of immunosuppression. [facility] TACROLIMUS LEVEL, TROUGH (MT E DRUG LEVEL)on 01-19-2024 Tacrolimus, Trough 6.8 ng/mL Normal Bone Susana ow Transplant: 4.0-12.0, Therapeutic: 5.0-15.0 [facility] Comment on above: Order Comment: Pleas e draw at specified interval PRIOR to dose. Do not hold dose to wait for level. Specimens batched twice per day, (M-F) and once per day weekendsMethod performed is a chemiluminescent microparticle immunoasssay on the [employer] i2000.The range is based on experience at [facility] and users should be aware that target concentrations vary widely depending on concomitant therapy, time post-transplant, and desired degree of immunosuppression. Performed By: #### T ACRO ####[facility] (DEFAULT)[address] [place] [id number] [place] AV fistulaOrdered By: Diana Reyes on 01-19-2024 [facility] Work Phone: US AV fistulaon 01-19-2024 Radiology Study observation (narrative) [facility] AFP TUMOR MARKEROrdered By: Francisca Alaniz on 01-18-2024 AFP.tumor marker [Mass/Vol] ng/mL NINF - 8.1 ng/mL [facility] Comment on above: This test was perfor med on the [employer] Immunoassay platform by [employer] which is a two-site sandwich chemiluminescent immunoassay. It is important to note that assays using different manufacturers and/or methods may not be comparable. Interpretation and review of laboratory results Normal [facility] CBC,PLATELETSon 01-18-2024 Hematocrit (Bld) [Volume fraction] 38.4 % Low 39.6-48.8 [facility] Comment on above: Performed By: #### H EMO ####[facility] (DEFAULT)[address] [place] [address] Hemoglobin (Bld) [Mass/Vol] 12.1 g/dL Low 13.4-16.8 [facility] Comment on above: Performed By: #### H EMOGC ####[facility] (DEFAULT)[address] [place] [address], [place] [address] MCV (RBC) [Entitic vol] 88.3 fL Normal 79.0-94.5 [facility] Comment on above: Performed By: #### H EMO ####[facility] (DEFAULT)[address] [place] [address] Mean Cell Hgb 27.8 pg Normal 26.1-33.3 [facility] Comment on above: Performed By: #### H EMOGC ####[facility] (DEFAULT)[address] [place] [address] [place] [address] Mean Cell Hgb Conc 31.5 g/dL Low 31.9-36.5 [facility] Comment on above: Performed By: #### H EMOGC ####[facility] (DEFAULT)[address] [place] [address], [place] [address] Platelet mean volume (Bld) [Entitic vol] 10.4 fL Normal 8.7-12.3 [facility] Comment on above: Performed By: #### H EMOGC ####[facility] (DEFAULT)[address] [place] [address] Platelets (Bld) [#/Vol] 183 10*3/uL Normal 146-337 [facility] Comment on above: Performed By: #### H EMO ####[facility] (DEFAULT)[address] [place] [address] RBC (Bld) [#/Vol] 4.35 10*6/uL Low 4.38-5.83 [facility] Comment on above: Performed By: #### H EMO ####[facility] (DEFAULT)[address] [place] [address] RBC Distribution 13.9 % Normal 10.9-14.3 [facility] Comment on above: Performed By: #### H [facility] ####[facility] (DEFAULT)[address] [place] [address] WBC (Bld) [#/Vol] 3.66 10*3/uL Low 3.73-10.10 [facility] Comment on above: Performed By: #### H [facility] ####[facility] (DEFAULT)[address] [place] [address] Erythrocyte distribution width (RBC) [Ratio] 13.9 % 10.9 - 14.3 % [facility] Hematocrit (Bld) [Volume fraction] 38.4 % Low 39.6 - 48.8 % [facility] Hemoglobin (Bld) [Mass/Vol] 12.1 g/dL Low 13.4 - 16.8 g/dL [facility] Interpretation and review of laboratory results Abnormal [facility] MCH (RBC) [Entitic mass] 27.8 pg 26.1 - 33.3 pg [facility] MCHC (RBC) [Mass/Vol] 31.5 g/dL Low 31.9 - 36.5 g/dL [facility] MCV (RBC) [Entitic vol] 88.3 fL 79.0 - 94.5 fL [facility] Platelet mean volume (Bld) [Entitic vol] 10.4 fL 8.7 - 12.3 fL [facility] Platelets (Bld) [#/Vol] 183 10*3/uL 146 - 337 K/uL [facility] RBC (Bld) [#/Vol] 4.35 10*6/uL Low [facility] WBC (Bld) [#/Vol] 3.66 10*3/uL Low 3.73 - 10. 10 K/uL [facility] CHEM 7 (LYTES,BUN,CREA,GLUC) on 01-18-2024 Anion gap [Moles/Vol] 11 mmol/L Normal 7-17 [facility] Comment on above: Performed By: #### M GO, CHM7, HFP, TSHQR ####[facility] (DEFAULT)[address] [place] [address] Chloride [Moles/Vol] 108 mmol/L Normal 98-108 [facility] Comment on above: Performed By: #### M GO, CHM7, HFP, TSHQR ####[facility] (DEFAULT)[address] [place] [address] CO2 [Moles/Vol] 26 mmol/L Normal 21-31 [facility] Comment on above: Performed By: #### M GO, CHM7, HFP, TSHQR ####[facility] (DEFAULT)[address] [place] [address] Creatinine [Mass/Vol] 1.00 mg/dL Normal 0.70-1.30 [facility] Comment on above: Performed By: #### M GO, CHM7, HFP, TSHQR ####[facility] (DEFAULT)[address] [place] [address] eGFR, CKD-EPI, Male > Normal >=60 [facility] Comment on above: Result Comment: Repo rted eGFR is based on the CKD-EPI 2020 equation using creatinine, age, and sex. Performed By: #### M GO, CHM7, HFP, TSHQR ####[facility] (DEFAULT)[address] [place] [address] Glucose [Mass/Vol] 89 mg/dL Normal 70-99 [facility] Comment on above: Performed By: #### M GO, CHM7, HFP, TSHQR ####[facility] (DEFAULT)[address] [place] [address] Osmolality [Osmolality] 295 mosm/kg Normal 278-305 [facility] Comment on above: Performed By: #### M GO, CHM7, HFP, TSHQR ####[facility] (DEFAULT)[address] [place] [address] Potassium [Moles/Vol] 3.9 mmol/L Normal 3.5-5.0 [facility] Comment on above: Performed By: #### M GO, CHM7, HFP, TSHQR ####[facility] (DEFAULT)[address] [place] [address] Sodium [Moles/Vol] 141 mmol/L Normal 135-145 [facility] Comment on above: Performed By: #### M GO, CHM7, HFP, TSHQR ####[facility] (DEFAULT)[address] [place] [address] Urea nitrogen [Mass/Vol] 16 mg/dL Normal 7-25 [facility] Comment on above: Performed By: #### M GO, CHM7, HFP, TSHQR ####[facility] (DEFAULT)[address] [place] [address] Urea nitrogen/Creatinine [Mass ratio] 16 mg/mg Normal [facility] Comment on above: Performed By: #### M GO, CHM7, HFP, TSHQR ####[facility] (DEFAULT)[address] [place] [address] Anion gap [Moles/Vol] 11 mmol/L 7 - 17 mmol/L [facility] Chloride [Moles/Vol] 108 mmol/L 98 - 10 8 mmol/L [facility] CO2 [Moles/Vol] 26 mmol/L 21 - 31 mmol/L [facility] Creatinine [Mass/Vol] 1.00 mg/dL 0.70 - 1.30 mg/dL [facility] eGFR, CKD-EPI, Male - PINF [facility] Comment on above: Reported eGFR is bas ed on the CKD-EPI 2020 equation using creatinine, age, and sex. Glucose [Mass/Vol] 89 mg/dL 70 - 99 mg/dL [facility] Osmolality Calc [Osmolality] 295 [facility] Potassium [Moles/Vol] 3.9 mmol/L 3.5 - 5.0 mmol/L [facility] Sodium [Moles/Vol] 141 mmol/L 135 - 145 mmol/L [facility] Urea nitrogen [Mass/Vol] 16 mg/dL 7 - 25 mg/dL [facility] Urea nitrogen/Creatinine [Mass ratio] 16 mg/mg [facility] Cardiac echo study Procedure Ordered By: Gian Carlos on 01-18-2024 Ao ASC index 1.63 cm/m2 [facility] Work Phone: Ao peak meliton 1.46 m/s [facility] Work Phone: Ao SOV index 1.56 cm/m2 [facility] Work Phone: Ao STJ index 1.25 cm/m2 [facility] Work Phone: Ao VTI 35.74 cm [facility] Work Phone: [facility]ending [facility]: [facility]: AV peak gradient 9 mmHG [facility] Work Phone: AV valve area 3.09 cm2 [facility] Work Phone: AV Velocity Ratio 0.73 [facility] Work Phone: VEGA (continuity Vmax) 3.01 cm2 [facility] Work Phone: VEGA (continuity VTI) 3.09 cm2 [facility] Work Phone: VEGA index (continuity Vmax) 1.45 m/s [facility] Work Phone: VEGA index (continuity VTI) 1.49 cm2/m2 [facility] Work Phone: Avg e' pk meliton 0.07 m/s [facility] Work Phone: Avg E/e' ratio 19.45 [facility] Work Phone: Body surface area Derived from formula 2.08 m2 [facility] Work Phone: BP EF 62 % [facility] Work Phone: DI (Vmax) 0.73 [facility] Work Phone: DI (VTI) 0.74 m/2 [facility] Work Phone: E wave decelartion time 180.38 msec [facility] Work Phone: e' lateral pk meliton 0.0789 m/s [facility] Work Phone: e' lateral pk meliton 0.08 [facility]s [facility] Work [facility]: e' septal pk meliton 0.0653 m/s [facility] Work Phone: e' septal pk meliton 0.07 m/s [facility] Work Phone: E/A ratio 2.67 [facility] Work Phone: E/e' lateral ratio 17.62 [facility] Work Phone: E/e' septal ratio 21.29 [facility] Work Phone: EF SP 2CH 66 [facility] Work Phone: EF SP 4CH 58 [facility] Work Phone: FS 28 % 28 - 44 % [facility] Work Phone: IVC ostium 2.30 cm [facility] Work Phone: IVS 1.11 cm [facility] Work Phone: LA AREA 2CH 24.36 cm2 [facility] Work Phone: LA area 4CH 20.36 cm2 [facility] Work Phone: LA ESV BP (MOD) 64 mL [facility] Work Phone: LA ESV BP (MOD) index 31 mL/m2 [facility] Work Phone: LA ESV SP 2CH (MOD) 76 mL [facility] Work Phone: LA ESV SP 4CH (MOD) 53 mL [facility] Work Phone: LV EDV BP 180 mL [facility] Work Phone: LV EDV SP 2CH 190 mL [facility] Work Phone: LV EDV SP 4CH 166 mL [facility] Work Phone: [phone] LV ESV BP 69 mL [facility] Work Phone: LV ESV SP 2CH 65 mL [facility] Work Phone: LV ESV SP 4CH 70 mL [facility] Work Phone: LV mass 254.73 g [facility] Work Phone: LV Mass Index 122.5 g/m2 [facility] Work Phone: [phone] LV RWT 0.42 [facility] Work Phone: LV stroke volume BP (ml) 111 mL [facility] Work Phone: LV stroke volume index BP 53.37 mL/m2 [facility] Work Phone: LVIDD 5.53 cm [facility] Work Phone: LVIDS 3.97 cm [facility] Work Phone: LVOT area 4.15 cm2 [facility] Work Phone: LVOT diameter 2.30 cm [facility] Work Phone: LVOT peak meliton 1.06 m/s [facility] Work Phone: [phone] LVOT peak VTI 26.61 cm [facility] Work Phone: LVOT stroke volume 111 cm3 [facility] Work Phone: LVOT stroke volume index 53.13 ml/m2 [facility] Work Phone: Mr max meliton 4.21 m/s [facility] Work Phone: MR VTI 134.50 [facility] Work Phone: MV mean gradient 3 mmHg [facility] Work Phone: MV peak gradient 11 [facility] Work Phone: MV pk A meliton 0.52 m/s [facility] Work Phone: MV pk E meliton 1.39 m/s [facility] Work Phone: MV stenosis pressure 1/2 time 58.56 ms [facility] Work Phone: MV valve area by continuity eq 2.93 cm2 [facility] Work Phone: MV valve area p 1/2 method 3.76 cm2 [facility] Work Phone: MV VTI 37.70 cm [facility] Work Phone: MVA (continuity VTI) 2.92 cm [facility] Work Phone: [facility] AV VTI RATIO PRE STRESS 0.74 [facility] Work Phone: [facility] ECHO LV BIPLANE SYSTOLIC VOLUME INDEX 33.17 mL/m2 [facility] Work Phone: [facility] ECHO LV BP DIASTOLIC VOLUME INDEX 86.54 mL/m2 [facility] Work Phone: [facility] ECHO MR PEAK GRADIENT 70.94 mmHg [facility] Work Phone: PW 1.16 cm [facility] Work Phone: RA area 4CH (MOD) 14.50 cm2 [facility] Work [facility]: RA vol index 4CH (MOD) 18.27 mL/m2 [facility] Work Phone: Right atrium volume 4 chamber method of disks 38 mL [facility] Work Phone: RV Area diastolic 33.20 cm2 [facility] Work Phone: RV Area systolic 21.30 cm2 [facility] Work Phone: RV basal diam 4.52 [facility] Work Phone: RV Fractional area change 35.8 % [facility] Work Phone: RV long diam 8.96 cm [facility] Work Phone: RV mid diam 3.70 cm [facility] Work Phone: RV S' 22.01 cm/s [facility] Work Phone: RVOT peak gradient 4 mmHg [facility] Work Phone: RVOT peak meliton 0.96 m/s [facility] Work Phone: RVOT peak VTI 20.86 cm [facility] Work Phone: Sinus 3.24 cm [facility] Work Phone: STJ 2.61 cm [facility] Work Phone: Stroke Volume 111 cm/mL [facility] Work Phone: [facility] Work [facility]: TAPSE 2.19 cm [facility] Work Phone: [facility] Work Phone: Cardiac echo study Procedure on [...] echocardiography study was performed. Imaging system used: Lumiy. Indications Indications for study: shortness of breath. [facility]UST Radiology Study observation (narrative) [facility] HEPATIC FUNCTION PANELon Albumin [Mass/Vol] 3.5 g/dL Normal 3.5-5.0 [facility] Comment on above: Performed By: #### M MERLE CHM7, HFP, TSHQR ####[facility] (DEFAULT)[address] [place] [address] ALP [Catalytic activity/Vol] 70 U/L Normal 32-126 [facility] Comment on above: Performed By: #### M MERLE CHM7, HFP, TSHQR ####[facility] (DEFAULT)[address] [place] [address] ALT [Catalytic activity/Vol] 8 U/L Low 10-52 [facility] Comment on above: Performed By: #### M MERLE CHM7, HFP, TSHQR ####[facility] (DEFAULT)[address] [place] [address] AST [Catalytic activity/Vol] 20 U/L Normal 10-39 [facility] Comment on above: Performed By: #### M GO, CHM7, HFP, TSHQR ####[facility] (DEFAULT)[address] [place] [address] Bilirubin [Mass/Vol] 1.7 mg/dL High <1.5 [facility] Comment on above: Performed By: #### M GO, CHM7, HFP, TSHQR ####[facility] (DEFAULT)[address] [place] [address] Bilirubin.indirect [Mass/Vol] 0.4 mg/dL High <0.3 [facility] Comment on above: Performed By: #### M GO, CHM7, HFP, TSHQR ####[facility] (DEFAULT)[address] [place] [address] Protein [Mass/Vol] 6.0 g/dL Low 6.4-8.3 [facility] Comment on above: Performed By: #### M GO, CHM7, HFP, TSHQR ####[facility] (DEFAULT)[address] [place] [address] Albumin [Mass/Vol] 3.5 g/dL 3.5 - 5.0 g/dL [facility] ALP [Catalytic activity/Vol] 70 U/L 32 - 126 U/L [facility] ALT [Catalytic activity/Vol] 8 U/L Low 10 - 52 U/L [facility] AST [Catalytic activity/Vol] 20 U/L 10 - 39 U/L [facility] Bilirubin [Mass/Vol] 1.7 mg/dL High NINF - 1.5 mg/dL [facility] Bilirubin.direct [Mass/Vol] 0.4 mg/dL High NINF - 0.3 mg/dL [facility] Protein [Mass/Vol] 6.0 g/dL Low 6.4 - 8.3 g/dL [facility] MAGNESIUMon 01-18-2024 Magnesium [Mass/Vol] 1.5 mg/dL Low 1.6-2.6 [facility] Comment on above: Performed By: #### M GO, CHM7, HFP, TSHQR ####[facility] (DEFAULT)[address] [place] [address] Magnesium [Mass/Vol] 1.5 mg/dL Low 1.6 - 2 .6 mg/dL [facility] No Panel Informationon 01-18 Interpretation and review of laboratory results Abnormal [facility] PT,INR,PTTon 01-18-2024 aPTT Coag (Bld) [Time] 30.0 s Normal 24.0-34.3 [facility] Comment on above: Performed By: #### P TPTT ####[facility] (DEFAULT)[address] [place] [address] INR Coag (PPP) [Relative time] 1.1 {INR} Normal 0.9-1.1 [facility] Comment on above: Performed By: #### P TPTT ####[facility] (DEFAULT)[address] [place] [address] PT Coag (PPP) [Time] 14.5 s High 11.9-14.2 [facility] Comment on above: Performed By: #### P TPTT ####[facility] (DEFAULT)[address] [place] [address] aPTT Coag (PPP) [Time] 30.0 s [facility] INR Coag (Bld) [Relative time] 1.1 {INR} 0.9 - 1.1 [facility] Interpretation and review of laboratory results Abnormal [facility] PT Coag (PPP) [Time] 14.5 s High [facility] TSH W/FT4 REFLEXon 4 Interpretation and review of laboratory results Normal [facility] TSH Qn 2.660 m[IU]/L [facility] TSH 2.660 uIU/mL Normal 0.550-4.780 [facility] Comment on above: Performed By: #### M GO, CHM7, HFP, TSHQR ####[facility] (DEFAULT)[address] [place] [address] AFP TUMOR MARKERon 4 AFP Tumor Marker <2.2 Normal <8.1 [facility] Comment on above: Result Comment: This test was performed on the [employer] Immunoassay platform by [employer] which is a two-site sandwich chemiluminescent immunoassay. It is important to note that assays using different manufacturers and/or methods may not be comparable. Performed By: #### A FPTMR ####[facility] (DEFAULT)[address] [place] [address] DARYL AURIS SCREEN BY PCRO rdered By: Mynor Alejandro on 01-17-2024 Daryl auris Screen by PCR Not detected Not Detected [facility] Interpretation and review of laboratory results Normal [facility] This test was perfor med using a real-time PCR assay. This test was developed, and its performance characteristics determined by [facility]. It has not been cleared or approved by the FDA. The laboratory is regulated under CLIA as qualified to perform high-complexity testing. This test is used for clinical purposes. It should not be regarded as investigational or for research. [facility] CBC,PLATELETSon 01-17-2024 Hematocrit (Bld) [Volume fraction] 37.2 % Low 39.6-48.8 [facility] Comment on above: Performed By: #### H EMO ####[facility] (DEFAULT)[address] [place] [address] Hemoglobin (Bld) [Mass/Vol] 12.0 g/dL Low 13.4-16.8 [facility] Comment on above: Performed By: #### H EMOGC ####[facility] (DEFAULT)[address] [place] [address] MCV (RBC) [Entitic vol] 86.5 fL Normal 79.0-94.5 [facility] Comment on above: Performed By: #### H EMOGC ####[facility] (DEFAULT)[address] [place] [address] Mean Cell Hgb 27.9 pg Normal 26.1-33.3 [facility] Comment on above: Performed By: #### H EMOGC ####[facility] (DEFAULT)[address] [place] [address] Mean Cell Hgb Conc 32.3 g/dL Normal 31.9-36.5 [facility] Comment on above: Performed By: #### H EMOGC ####[facility] (DEFAULT)[address] [place] [address] Platelet mean volume (Bld) [Entitic vol] 10.5 fL Normal 8.7-12.3 [facility] Comment on above: Performed By: #### H EMOGC ####[facility] (DEFAULT)[address] [facility] [place] [address] Platelets (Bld) [#/Vol] 159 10*3/uL Normal 146-337 [facility] Comment on above: Performed By: #### H EMOGC ####[facility] (DEFAULT)[address] [place] [address] RBC (Bld) [#/Vol] 4.30 10*6/uL Low 4.38-5.83 [facility] Comment on above: Performed By: #### H EMOGC ####[facility] (DEFAULT)[address] [place] [address] RBC Distribution 14.0 % Normal 10.9-14.3 [facility] Comment on above: Performed By: #### H [facility] ####[facility] (DEFAULT)[address] [place] [address] WBC (Bld) [#/Vol] 3.69 10*3/uL Low 3.73-10.10 [facility] Comment on above: Performed By: #### H [facility] ####[facility] (DEFAULT)[address] [place] [address] Erythrocyte distribution width (RBC) [Ratio] 14.0 % 10.9 - 14.3 % [facility] Hematocrit (Bld) [Volume fraction] 37.2 % Low 39.6 - 48.8 % [facility] Hemoglobin (Bld) [Mass/Vol] 12.0 g/dL Low 13.4 - 16.8 g/dL [facility] Interpretation and review of laboratory results Abnormal [facility] MCH (RBC) [Entitic mass] 27.9 pg 26.1 - 33.3 pg [facility] MCHC (RBC) [Mass/Vol] 32.3 g/dL 31.9 - 36.5 g/dL [facility] MCV (RBC) [Entitic vol] 86.5 fL 79.0 - 94.5 fL [facility] Platelet mean volume (Bld) [Entitic vol] 10.5 fL 8.7 - 12.3 fL [facility] Platelets (Bld) [#/Vol] 159 10*3/uL 146 - 337 K/uL [facility] RBC (Bld) [#/Vol] 4.30 10*6/uL Low [facility] WBC (Bld) [#/Vol] 3.69 10*3/uL Low 3.73 - 10. 10 K/uL [facility] CHEM 7 (LYTES,BUN,CREA,GLUC) on 01-17-2024 Anion gap [Moles/Vol] 13 mmol/L Normal 7-17 [facility] Comment on above: Performed By: #### M MERLE, CHM7, HFP ####[facility] (DEFAULT)[address] [place] [address] Chloride [Moles/Vol] 109 mmol/L High 98-108 [facility] Comment on above: Performed By: #### NATHANIEL RAMÍREZ, HFP ####[facility] (DEFAULT)[address] [place] [address] CO2 [Moles/Vol] 21 mmol/L Normal 21-31 [facility] Comment on above: Performed By: #### M NATHANIEL BLOOM, HFP ####[facility] (DEFAULT)[address] [place] [address] Creatinine [Mass/Vol] 1.04 mg/dL Normal 0.70-1.30 [facility] Comment on above: Performed By: #### NATHANIEL RAMÍREZ, HFP ####[facility] (DEFAULT)[address] [place] [address] GFR/1.73 sq M.predicted among non-blacks MDRD (S/P/Bld) [Vol rate/Area] 86 mL/min/{1.73_m2} Normal >=60 [facility] Comment on above: Result Comment: Repo rted eGFR is based on the CKD-EPI 2020 equation using creatinine, age, and sex. Performed By: #### NATHANIEL RAMÍREZ, HFP ####[facility] (DEFAULT)[address] [place] [address] Glucose [Mass/Vol] 82 mg/dL Normal 70-99 [facility] Comment on above: Performed By: #### NATHANIEL RAMÍREZ, HFP ####[facility] (DEFAULT)[address] [place] [address] Osmolality [Osmolality] 292 mosm/kg Normal 278-305 [facility] Comment on above: Performed By: #### NATHANIEL RAMÍREZ, HFP ####[facility] (DEFAULT)[address] [place] [address] Potassium [Moles/Vol] 4.4 mmol/L Normal 3.5-5.0 [facility] Comment on above: Performed By: #### NATHANIEL RAMÍREZ, HFP ####[facility] (DEFAULT)[address] [place] [address] Sodium [Moles/Vol] 139 mmol/L Normal 135-145 [facility] Comment on above: Performed By: #### NATHANIEL RAMÍREZ, HFP ####[facility] (DEFAULT)[address] [place] [address] Urea nitrogen [Mass/Vol] 17 mg/dL Normal 7-25 [facility] Comment on above: Performed By: #### NATHANIEL RAMÍREZ, HFP ####[facility] (DEFAULT)[address] [place] [place] [address] Urea nitrogen/Creatinine [Mass ratio] 16 mg/mg Normal [facility] Comment on above: Performed By: #### NATHANIEL RAMÍREZ, HFP ####[facility] (DEFAULT)[address] [place] [address] Anion gap [Moles/Vol] 13 mmol/L 7 - 17 mmol/L [facility] Chloride [Moles/Vol] 109 mmol/L High 98 - 10 8 mmol/L [facility] CO2 [Moles/Vol] 21 mmol/L 21 - 31 mmol/L [facility] Creatinine [Mass/Vol] 1.04 mg/dL 0.70 - 1.30 mg/dL [facility] eGFR, CKD-EPI, Male 86 - PINF [facility] Comment on above: Reported eGFR is bas ed on the CKD-EPI 2020 equation using creatinine, age, and sex. Glucose [Mass/Vol] 82 mg/dL 70 - 99 mg/dL [facility] Osmolality Calc [Osmolality] 292 [facility] Potassium [Moles/Vol] 4.4 mmol/L 3.5 - 5.0 mmol/L [facility] Sodium [Moles/Vol] 139 mmol/L 135 - 145 mmol/L [facility] Urea nitrogen [Mass/Vol] 17 mg/dL 7 - 25 mg/dL [facility] Urea nitrogen/Creatinine [Mass ratio] 16 mg/mg [facility] CT ABDOMEN/PELVIS WITHOUT CO NTRASTon 01-17-2024 CT ABDOMEN/PELVIS WITHOUT CONTRAST Normal [facility] CT Abdomen and Pelvis WO con [...] unremarkable. Kidneys: Severe atrophy of the bilateral [place] kidney is without hydronephrosis. Right lower quadrant [...] unremarkable. Kidneys: Severe atrophy of the bilateral [place] kidney is without hydronephrosis. Right lower quadrant [...] the middle lobe. Trace left pleural effusion. [facility] Radiology Study observation (narrative) [facility] HEPATIC FUNCTION PANELon Albumin [Mass/Vol] 3.5 g/dL Normal 3.5-5.0 [facility] Comment on above: Performed By: #### M NATHANIEL BLOOM, HFP ####[facility] (DEFAULT)[address] [place] [address] ALP [Catalytic activity/Vol] 73 U/L Normal 32-126 [facility] Comment on above: Performed By: #### M NATHANIEL BLOOM, HFP ####[facility] (DEFAULT)[address] [place] [address] ALT [Catalytic activity/Vol] 7 U/L Low 10-52 [facility] Comment on above: Performed By: #### NATHANIEL RAMÍREZ, HFP ####[facility] (DEFAULT)[address] [place] [address] AST [Catalytic activity/Vol] 25 U/L Normal 10-39 [facility] Comment on above: Performed By: #### M NATHANIEL BLOOM, HFP ####[facility] (DEFAULT)[address] [place] [address] Bilirubin [Mass/Vol] 1.8 mg/dL High <1.5 [facility] Comment on above: Performed By: #### NATHANIEL RAMÍREZ, HFP ####[facility] (DEFAULT)[address] [place] [address] Bilirubin.indirect [Mass/Vol] 0.3 mg/dL High <0.3 [facility] Comment on above: Performed By: #### NATHANIEL RAMÍREZ, HFP ####[facility] (DEFAULT)[address] [place] [address] Protein [Mass/Vol] 6.0 g/dL Low 6.4-8.3 [facility] Comment on above: Performed By: #### NATHANIEL RAMÍREZ, HFP ####[facility] (DEFAULT)[address] [place] [address] Albumin [Mass/Vol] 3.5 g/dL 3.5 - 5.0 g/dL [facility] ALP [Catalytic activity/Vol] 73 U/L 32 - 126 U/L [facility] ALT [Catalytic activity/Vol] 7 U/L Low 10 - 52 U/L [facility] AST [Catalytic activity/Vol] 25 U/L 10 - 39 U/L [facility] Bilirubin [Mass/Vol] 1.8 mg/dL High NINF - 1.5 mg/dL [facility] Bilirubin.direct [Mass/Vol] 0.3 mg/dL High NINF - 0.3 mg/dL [facility] Protein [Mass/Vol] 6.0 g/dL Low 6.4 - 8.3 g/dL [facility] HISTOPLASMA AND BLASTOMYCES ANTIGEN, ENZYME IMMUNOASSAY, SERMon 01-17-2024 Histoplasma/Blastomy antonia Ag Result Not detected Normal Not Detected [facility] Comment on above: Result Comment: No a ntigen from Histoplasma or Blastomyces detected. Falsenegative results may occur depending on extent of disease,and/or site of infection. Repeat testing on a new specimenif clinically indicated. Performed By: #### Lydia MONCADA ####[facility] (DEFAULT)[address] [address] Histoplasma/Blastomy antonia Ag Value Not detected Normal [facility] Comment on above: Result Comment: ---- ADDITIONAL INFORMATION This test was developed and its performance characteristicsdetermined by [facility] in a manner consistent with CLIArequirements. This test has not been cleared or approved bythe U.S. Food and Drug Administration.Test Performed by:[address] [address]Sol Director: Rosendo Bose M.D. Ph.D.; CLIA# [id number] Performed By: #### Lydia MONCADA ####[facility] (DEFAULT)[address] [place] [address] MAGNESIUMon 01-17-2024 Magnesium [Mass/Vol] 1.7 mg/dL Normal 1.6-2.6 [facility] Comment on above: Performed By: #### Rod BLOOM, CHM7, [facility] ####[facility] (DEFAULT)[address] [place] [address] Interpretation and review of laboratory results Normal [facility] Magnesium [Mass/Vol] 1.7 mg/dL 1.6 - 2 .6 mg/dL [facility] No Panel Informationon 01-17 Interpretation and review of laboratory results Abnormal [facility] PT,INR,PTTon 01-17-2024 aPTT Coag (PPP) [Time] 29.9 s [facility] INR Coag (Bld) [Relative time] 1.1 {INR} 0.9 - 1.1 [facility] Interpretation and review of laboratory results Abnormal [facility] PT Coag (PPP) [Time] 14.5 s High [facility] aPTT Coag (Bld) [Time] 29.9 s Normal 24.0-34.3 [facility] Comment on above: Performed By: #### P TPTT ####[facility] (DEFAULT)[address] [place] [address] INR Coag (PPP) [Relative time] 1.1 {INR} Normal 0.9-1.1 [facility] Comment on above: Performed By: #### P TPTT ####[facility] (DEFAULT)[address] [place] [address] PT Coag (PPP) [Time] 14.5 s High 11.9-14.2 [facility] Comment on above: Performed By: #### P TPTT ####[facility] (DEFAULT)[address] [place] [address] B-TYPE NATRIURETIC PEPTIDE ( BRAIN)on 01-16-2024 Interpretation and review of laboratory results Abnormal [facility] Natriuretic peptide B (Bld) [Mass/Vol] 212 pg/mL High 0 - 100 pg/mL [facility] Natriuretic peptide B (Bld) [Mass/Vol] 212 pg/mL High 0-100 [facility] Comment on above: Performed By: #### B FURNITURE DUSTER ####[facility] (DEFAULT)[address] [place] [address] CALCIUMon 01-16-2024 Calcium [Mass/Vol] 8.5 mg/dL Low 8.6-10.5 [facility] Comment on above: Performed By: #### C A, MGO, CHM7, HFP, IPB ####[facility] (DEFAULT)[address] [place] [address] Calcium [Mass/Vol] 8.5 mg/dL Low 8.6 - 10. 5 mg/dL [facility] DARYL AURIS SCREEN BY PCRo n 01-16-2024 Daryl auris Screen by PCR Not detected Normal Not Detected [facility] Comment on above: Order Comment: This test was performed using a real-time PCR assay. This test was developed, and its performance characteristics determined by [facility]. It has not been cleared or approved by the FDA. The laboratory is regulated under CLIA as qualified to perform high-complexity testing. This test is used for clinical purposes. It should not be regarded as investigational or for research. Performed By: #### C ANDIDA AURIS SCREEN BY PCR ####[facility] (DEFAULT)[address] [place] [address] CBC AND ELECTRONIC DIFFon Abs Baso Auto < Normal 0.00-0.09 [facility] Comment on above: Performed By: #### L [id number] ####[facility] (DEFAULT)[address] [place] [address] Basophils/100 WBC (Bld) 0.6 % Normal [facility] Comment on above: Performed By: #### L [id number] ####[facility] (DEFAULT)[address] [place] [address] DIFF STATUS Electronic Differential Normal [facility] Comment on above: Performed By: #### L [id number] ####[facility] (DEFAULT)[address] [place] [address] Eosinophils (Bld) [#/Vol] 0.09 10*3/uL Normal 0.00-0.48 [facility] Comment on above: Performed By: #### L [id number] ####[facility] (DEFAULT)[address] [place] [address], [place] [address] Eosinophils/100 WBC (Bld) 2.5 % Normal [facility] Comment on above: Performed By: #### L AB980 ####[facility] (DEFAULT)[address] [place] [address] Hematocrit (Bld) [Volume fraction] 37.4 % Low 39.6-48.8 [facility] Comment on above: Performed By: #### L [id number] ####[facility] (DEFAULT)[address] [place] [address], [place] [address] Hemoglobin (Bld) [Mass/Vol] 12.1 g/dL Low 13.4-16.8 [facility] Comment on above: Performed By: #### L [id number] ####[facility] (DEFAULT)[address] [place] [address], [place] [address] Immature Grans % 0.3 % Normal [facility] Comment on above: Performed By: #### L [id number] ####[facility] (DEFAULT)[address] [place] [address], [place] [address] Immature Grans Absolute < Normal <=0.07 [facility] Comment on above: Performed By: #### L [id number] ####[facility] (DEFAULT)[address] [place] [address] Lymphocytes (Bld) [#/Vol] 1.16 10*3/uL Normal 0.83-3.57 [facility] Comment on above: Performed By: #### L [id number] ####[facility] (DEFAULT)[address] [place] [address] Lymphocytes/100 WBC (Bld) 32.0 % Normal [facility] Comment on above: Performed By: #### L [id number] ####[facility] (DEFAULT)[address] [facility] [place] [address] MCV (RBC) [Entitic vol] 87.8 fL Normal 79.0-94.5 [facility] Comment on above: Performed By: #### L [id number] ####[facility] (DEFAULT)[address] [facility] [place] [address] Mean Cell Hgb 28.4 pg Normal 26.1-33.3 [facility] Comment on above: Performed By: #### L [id number] ####[facility] (DEFAULT)[address] [place] [place] [address] Mean Cell Hgb Conc 32.4 g/dL Normal 31.9-36.5 [facility] Comment on above: Performed By: #### L [id number] ####[facility] (DEFAULT)[address] [place] [address] Monocytes (Bld) [#/Vol] 0.43 10*3/uL Normal 0.24-0.93 [facility] Comment on above: Performed By: #### L [id number] ####[facility] (DEFAULT)[address] [place] [address] Monocytes/100 WBC (Bld) 11.9 % Normal [facility] Comment on above: Performed By: #### L [id number] ####[facility] (DEFAULT)[address] [place] [address] Nucleated RBC 0.0 /100 WBC Normal <=0.2 [facility] Comment on above: Performed By: #### L [id number] ####[facility] (DEFAULT)[address] [facility] [address] Platelet mean volume (Bld) [Entitic vol] 10.1 fL Normal 8.7-12.3 [facility] Comment on above: Performed By: #### L [id number] ####[facility] (DEFAULT)[address] [place] [address] Platelets (Bld) [#/Vol] 155 10*3/uL Normal 146-337 [facility] Comment on above: Performed By: #### L [id number] ####[facility] (DEFAULT)[address] [facility] [address] RBC (Bld) [#/Vol] 4.26 10*6/uL Low 4.38-5.83 [facility] Comment on above: Performed By: #### L [id number] ####[facility] (DEFAULT)[address] [place] [address] RBC Distribution 14.0 % Normal 10.9-14.3 [facility] Comment on above: Performed By: #### L [id number] ####[facility] (DEFAULT)[address] [place] [address] Segs + Bands Auto 52.7 % Normal [facility] Comment on above: Performed By: #### L [id number] ####[facility] (DEFAULT)[address] [place] [address] Segs + Bands,Absolute Auto 1.91 K/uL Normal 1.57-6.19 [facility] Comment on above: Performed By: #### L [id number] ####[facility] (DEFAULT)[address] [place] [address] WBC (Bld) [#/Vol] 3.62 10*3/uL Low 3.73-10.10 [facility] Comment on above: Performed By: #### L [id number] ####[facility] (DEFAULT)[address] [place] [address] Basophils (Bld) [#/Vol] K/uL 0.00 - 0.09 K/uL [facility] Basophils/100 WBC (Bld) 0.6 % [facility] Differential cell count method Nom (Bld) Electronic Differential [facility] Eosinophils (Bld) [#/Vol] 0.09 10*3/uL 0.00 - 0.48 K/uL [facility] Eosinophils/100 WBC (Bld) 2.5 % [facility] Erythrocyte distribution width (RBC) [Ratio] 14.0 % 10.9 - 14.3 % [facility] Hematocrit (Bld) [Volume fraction] 37.4 % Low 39.6 - 48.8 % [facility] Hemoglobin (Bld) [Mass/Vol] 12.1 g/dL Low 13.4 - 16.8 g/dL [facility] Immature granulocytes (Bld) [#/Vol] K/uL NINF - 0.07 K/uL [facility] Immature granulocytes/100 WBC (Bld) 0.3 % [facility] Interpretation and review of laboratory results Abnormal [facility] Lymphocytes (Bld) [#/Vol] 1.16 10*3/uL 0.83 - 3.57 K/uL [facility] Lymphocytes/100 WBC (Bld) 32.0 % [facility] MCH (RBC) [Entitic mass] 28.4 pg 26.1 - 33.3 pg [facility] MCHC (RBC) [Mass/Vol] 32.4 g/dL 31.9 - 36.5 g/dL [facility] MCV (RBC) [Entitic vol] 87.8 fL 79.0 - 94.5 fL [facility] Monocytes (Bld) [#/Vol] 0.43 10*3/uL 0.24 - 0.93 K/uL [facility] Monocytes/100 WBC (Bld) 11.9 % [facility] Neutrophils (Bld) [#/Vol] 1.91 10*3/uL 1.57 - 6.19 K/uL [facility] Nucleated RBC/100 WBC (Bld) [Ratio] 0.0 % [facility] Platelet mean volume (Bld) [Entitic vol] 10.1 fL 8.7 - 12.3 fL [facility] Platelets (Bld) [#/Vol] 155 10*3/uL 146 - 337 K/uL [facility] RBC (Bld) [#/Vol] 4.26 10*6/uL Low [facility] Segmented neutrophils/100 WBC (Bld) 52.7 % [facility] WBC (Bld) [#/Vol] 3.62 10*3/uL Low 3.73 - 10. 10 K/uL [facility] CHEM 7 (LYTES,BUN,CREA,GLUC) on 01-16-2024 Anion gap [Moles/Vol] 11 mmol/L Normal 7-17 [facility] Comment on above: Performed By: #### C A, MGO, CHM7, HFP, IPB ####[facility] (DEFAULT)[address] [facility] [place] [address] Chloride [Moles/Vol] 108 mmol/L Normal 98-108 [facility] Comment on above: Performed By: #### C A, MGO, CHM7, HFP, IPB ####[facility] (DEFAULT)[address] [facility] [place] [address] CO2 [Moles/Vol] 24 mmol/L Normal 21-31 [facility] Comment on above: Performed By: #### C A, MGO, CHM7, HFP, IPB ####[facility] (DEFAULT)[address] [place] [address] Creatinine [Mass/Vol] 1.04 mg/dL Normal 0.70-1.30 [facility] Comment on above: Performed By: #### C A, MGO, CHM7, HFP, IPB ####[facility] (DEFAULT)[address] [place] [address] GFR/1.73 sq M.predicted among non-blacks MDRD (S/P/Bld) [Vol rate/Area] 86 mL/min/{1.73_m2} Normal >=60 [facility] Comment on above: Result Comment: Repo rted eGFR is based on the CKD-EPI 2020 equation using creatinine, age, and sex. Performed By: #### C A, MGO, CHM7, HFP, IPB ####[facility] (DEFAULT)[address] [place] [address] Glucose [Mass/Vol] 95 mg/dL Normal 70-99 [facility] Comment on above: Performed By: #### C A, MGO, CHM7, HFP, IPB ####[facility] (DEFAULT)[address] [place] [address] Osmolality [Osmolality] 293 mosm/kg Normal 278-305 [facility] Comment on above: Performed By: #### C A, MGO, CHM7, HFP, IPB ####[facility] (DEFAULT)[address] [place] [address] Potassium [Moles/Vol] 4.0 mmol/L Normal 3.5-5.0 [facility] Comment on above: Performed By: #### C A, MGO, CHM7, HFP, IPB ####[facility] (DEFAULT)[address] [place] [address] Sodium [Moles/Vol] 139 mmol/L Normal 135-145 [facility] Comment on above: Performed By: #### C A, MGO, CHM7, HFP, IPB ####[facility] (DEFAULT)[address] [place] [address] Urea nitrogen [Mass/Vol] 19 mg/dL Normal 7-25 [facility] Comment on above: Performed By: #### C A, MGO, CHM7, HFP, IPB ####[facility] (DEFAULT)[address] [facility] [place] [address] Urea nitrogen/Creatinine [Mass ratio] 18 mg/mg Normal [facility] Comment on above: Performed By: #### C A, MGO, CHM7, HFP, IPB ####[facility] (DEFAULT)[address] [place] [address] Anion gap [Moles/Vol] 11 mmol/L 7 - 17 mmol/L [facility] Chloride [Moles/Vol] 108 mmol/L 98 - 10 8 mmol/L [facility] CO2 [Moles/Vol] 24 mmol/L 21 - 31 mmol/L [facility] Creatinine [Mass/Vol] 1.04 mg/dL 0.70 - 1.30 mg/dL [facility] eGFR, CKD-EPI, Male 86 [facility] Comment on above: Reported eGFR is bas ed on the CKD-EPI 2020 equation using creatinine, age, and sex. Glucose [Mass/Vol] 95 mg/dL 70 - 99 mg/dL [facility] Osmolality Calc [Osmolality] 293 [facility] Potassium [Moles/Vol] 4.0 mmol/L 3.5 - 5.0 mmol/L [facility] Sodium [Moles/Vol] 139 mmol/L 135 - 145 mmol/L [facility] Urea nitrogen [Mass/Vol] 19 mg/dL 7 - 25 mg/dL [facility] Urea nitrogen/Creatinine [Mass ratio] 18 mg/mg [facility] D-DIMER,QUANTITATIVEon 01-16 D-Dimer, High Sensitivity 0.67 mcg/mL FEU High <0.50 [facility] Comment on above: Result Comment: The D-Dimer assay is intended for use in conjuction with a clinical pretest probability (PTP) assessment model to exclude pulmonary embolism (PE) and as an aid in the diagnosis of Deep Vein Thrombosis (DVT) in outpatients suspected of PE or DVT. For the assay in use at [facility] ([facility]), a cutoff of <0.50 mcg/mL has a Negative Predictive Value of 99.7% for exclusion of DVT in low and moderate PTP patients. Performed By: #### P TPTT, HSDDI ####[facility] (DEFAULT)[address] [place] [address] D-DIMER,QUANTITATIVEOrdered By: Shaji Kelly on 01-16-2024 Fibrin D-dimer FEU (PPP) [Mass/Vol] 0.67 High NINF [facility] Comment on above: The D-Dimer assay is intended for use in conjuction with a clinical pretest probability (PTP) assessment model to exclude pulmonary embolism (PE) and as an aid in the diagnosis of Deep Vein Thrombosis (DVT) in outpatients suspected of PE or DVT. For the assay in use at [facility] ([facility]), a cutoff of <0.50 mcg/mL has a Negative Predictive Value of 99.7% for exclusion of DVT in low and moderate PTP patients. Interpretation and review of laboratory results Abnormal [facility] HEPATIC FUNCTION PANELon Albumin [Mass/Vol] 3.7 g/dL Normal 3.5-5.0 [facility] Comment on above: Performed By: #### C A, MGO, CHM7, HFP, IPB ####[facility] (DEFAULT)[address] [facility] [address] ALP [Catalytic activity/Vol] 70 U/L Normal 32-126 [facility] Comment on above: Performed By: #### C A, MGO, CHM7, HFP, IPB ####[facility] (DEFAULT)[address] [place] [address] ALT [Catalytic activity/Vol] 8 U/L Low 10-52 [facility] Comment on above: Performed By: #### C A, MGO, CHM7, HFP, IPB ####[facility] (DEFAULT)[address] [place] [address] AST [Catalytic activity/Vol] 21 U/L Normal 10-39 [facility] Comment on above: Performed By: #### C A, MGO, CHM7, HFP, IPB ####[facility] (DEFAULT)[address] [place] [address] Bilirubin [Mass/Vol] 1.9 mg/dL High <1.5 [facility] Comment on above: Performed By: #### C A, MGO, CHM7, HFP, IPB ####[facility] (DEFAULT)[address] [place] [address] Bilirubin.indirect [Mass/Vol] 0.4 mg/dL High <0.3 [facility] Comment on above: Performed By: #### C Tray, MGO, CHM7, HFP, IPB ####[facility] (DEFAULT)[address] [place] [address] Protein [Mass/Vol] 6.1 g/dL Low 6.4-8.3 [facility] Comment on above: Performed By: #### Chinedu Feliz, MGO, CHM7, HFP, IPB ####[facility] (DEFAULT)[address] [place] [address] Albumin [Mass/Vol] 3.7 g/dL 3.5 - 5.0 g/dL [facility] ALP [Catalytic activity/Vol] 70 U/L 32 - 126 U/L [facility] ALT [Catalytic activity/Vol] 8 U/L Low 10 - 52 U/L [facility] AST [Catalytic activity/Vol] 21 U/L 10 - 39 U/L [facility] Bilirubin [Mass/Vol] 1.9 mg/dL High NINF - 1.5 mg/dL [facility] Bilirubin.direct [Mass/Vol] 0.4 mg/dL High NINF - 0.3 mg/dL [facility] Protein [Mass/Vol] 6.1 g/dL Low 6.4 - 8.3 g/dL [facility] MAGNESIUMon 01-16-2024 Magnesium [Mass/Vol] 1.7 mg/dL Normal 1.6-2.6 [facility] Comment on above: Performed By: #### C A, MGO, CHM7, HFP, IPB ####[facility] (DEFAULT)[address] [facility] [place] [address] Magnesium [Mass/Vol] 1.7 mg/dL 1.6 - 2 .6 mg/dL [facility] No Panel Informationon 01-16 Interpretation and review of laboratory results Abnormal [facility] Interpretation and review of laboratory results Normal [facility] PHOSPHATE, INORGANICon 01-16 Phosphorous 4.1 mg/dL Normal 2.2-4.6 [facility] Comment on above: Performed By: #### C A, MGO, CHM7, HFP, IPB ####[facility] (DEFAULT)[address] [facility] [place] [address] Phosphate [Mass/Vol] 4.1 mg/dL 2.2 - 4 .6 mg/dL [facility] PT,INR,PTTon 01-16-2024 aPTT Coag (Bld) [Time] 29.6 s Normal 24.0-34.3 [facility] Comment on above: Performed By: #### P TPTT, HSDDI ####[facility] (DEFAULT)[address] [place] [address] INR Coag (PPP) [Relative time] 1.2 {INR} High 0.9-1.1 [facility] Comment on above: Performed By: #### P TPTT, HSDDI ####[facility] (DEFAULT)[address] [place] [address] PT Coag (PPP) [Time] 14.9 s High 11.9-14.2 [facility] Comment on above: Performed By: #### P TPTT, HSDDI ####[facility] (DEFAULT)[address] [place] [address] aPTT Coag (PPP) [Time] 29.6 s [facility] INR Coag (Bld) [Relative time] 1.2 {INR} High 0.9 - 1.1 [facility] Interpretation and review of laboratory results Abnormal [facility] PT Coag (PPP) [Time] 14.9 s High [facility] TACROLIMUS LEVEL, TROUGH (MT E DRUG LEVEL)Ordered By: Jimy Castillo on 01-16-2024 Interpretation and review of laboratory results Normal [facility] Tacrolimus (Bld) [Mass/Vol] 5.7 ng/mL Bone Marrow Transplant: 4.0-12.0, Therapeutic: 5.0-15.0 [facility] Method performed is a chemiluminescent microparticle immunoasssay on the [employer] i2000. The range is based on experience at [facility] and users should be aware that target concentrations vary widely depending on concomitant therapy, time post-transplant, and desired degree of immunosuppression. [facility] TACROLIMUS LEVEL, TROUGH (MT E DRUG LEVEL)on 01-16-2024 Tacrolimus, Trough 5.7 ng/mL Normal Bone Susana ow Transplant: 4.0-12.0, Therapeutic: 5.0-15.0 [facility] Comment on above: Order Comment: Pleas e draw at specified interval PRIOR to dose. Do not hold dose to wait for level. Specimens batched twice per day, (M-F) and once per day weekendsMethod performed is a chemiluminescent microparticle immunoasssay on the [employer] i2000.The range is based on experience at [facility] and users should be aware that target concentrations vary widely depending on concomitant therapy, time post-transplant, and desired degree of immunosuppression. Performed By: #### T ACRO ####[facility] (DEFAULT)[address] [place] [address] US ABDOMEN LIVER DOPPLERon 0 01-16-2024 US ABDOMEN LIVER DOPPLER Normal [facility] US.doppler Abdominal vessels on 01-16-2024 IMPRESSION: [...] pleural effusion. Trace right upper quadrant ascites. [facility] Ordered By: Iona Duran on 01-16-2024 [facility] Work Phone: XR CHEST PA AND LATERAL 2 EWSon 01-16-2024 XR CHEST PA AND LATERAL 2 VIEWS Normal [facility] XR Chest PA and Lateralon IMPRESSION: [...] Normal IMPRESSION IMPRESSION: Moderate right pleural effusion. [facility] Radiology Study observation (narrative) [facility] XR Chest PA and LateralOrder ed By: Daisha Patterson on 01-16-2024 [facility] Work Phone: ALL CBC WITH AUTO DIFFon BASOPHILS ABSOLUTE AUTO 0.0 [facility] Basophils/100 WBC (Bld) 0.5 % 0.2 - 2.0 % [facility] Eosinophils/100 WBC (Bld) 2.8 % 0.9 - 7.0 % [facility] Erythrocyte distribution width (RBC) [Ratio] 13.8 % 11.0 - 15.0 % [facility] Hematocrit (Bld) [Volume fraction] 43.7 % 42.0 - 54.0 % [facility] Hemoglobin (Bld) [Mass/Vol] 14.0 g/dL 14.0 - 18.0 g/dL [facility] IMMATURE GRANULOCYTES ABS AUTO 0.01 [facility] Immature granulocytes/100 WBC (Bld) 0.3 % 0.0 - 0.5 % [facility] LYMPHOCYTES ABSOLUTE AUTO 1.5 [facility] Lymphocytes/100 WBC (Bld) 37.5 % 20.5 - 60.0 % [facility] MCH (RBC) [Entitic mass] 28.4 pg 25.9 - 34.0 pg [facility] MCHC (RBC) [Mass/Vol] 32.0 g/dL 29.9 - 35.2 g/dL [facility] MCV (RBC) [Entitic vol] 88.6 fL 80.0 - 94.0 fL [facility] MONOCYTES ABSOLUTE AUTO 0.5 [facility] Monocytes/100 WBC (Bld) 11.9 % 1.7 - 12.0 % [facility] NEUTROPHILS ABSOLUTE AUTO 1.9 [facility] Neutrophils/100 WBC (Bld) 47.0 % 43.0 - 75.0 % [facility] Platelet mean volume (Bld) [Entitic vol] 10.3 fL 9.5 - 13.5 fL [facility] TBH EO # 0.1 [facility] TBH PLT 180 [facility] TB RBC 4.93 [facility] TB WBC 4.0 [facility] ALL CBC WITH AUTO DIFFon BASOPHILS ABSOLUTE AUTO 0.0 [facility] Basophils/100 WBC (Bld) 0.5 % 0.2 - 2.0 % [facility] Eosinophils/100 WBC (Bld) 2.6 % 0.9 - 7.0 % [facility] Erythrocyte distribution width (RBC) [Ratio] 13.5 % 11.0 - 15.0 % [facility] Hematocrit (Bld) [Volume fraction] 43.8 % 42.0 - 54.0 % [facility] Hemoglobin (Bld) [Mass/Vol] 14.0 g/dL 14.0 - 18.0 g/dL [facility] IMMATURE GRANULOCYTES ABS AUTO 0.00 [facility] Immature granulocytes/100 WBC (Bld) 0.0 % 0.0 - 0.5 % [facility] Interpretation and review of laboratory results Abnormal [facility] LYMPHOCYTES ABSOLUTE AUTO 1.8 [facility] Lymphocytes/100 WBC (Bld) 45.2 % 20.5 - 60.0 % [facility] MCH (RBC) [Entitic mass] 27.9 pg 25.9 - 34.0 pg [facility] MCHC (RBC) [Mass/Vol] 32.0 g/dL 29.9 - 35.2 g/dL [facility] MCV (RBC) [Entitic vol] 87.4 fL 80.0 - 94.0 fL [facility] MONOCYTES ABSOLUTE AUTO 0.4 [facility] Monocytes/100 WBC (Bld) 9.6 % 1.7 - 12.0 % [facility] NEUTROPHILS ABSOLUTE AUTO 1.6 [facility] Neutrophils/100 WBC (Bld) 42.1 % Low 43.0 - 75.0 % [facility] Platelet mean volume (Bld) [Entitic vol] 9.8 fL 9.5 - 13.5 fL [facility] TBH EO # 0.1 [facility] TB PLT 180 [facility] RBC 5.01 [facility] WBC 3.9 Low [facility] CHEM 7 (LYTES,BUN,CREA,GLUC) on 09-11-2023 Anion gap [Moles/Vol] 13 mmol/L Normal 7-17 [facility] Comment on above: Performed By: #### M NATHANIEL BLOOM ####[facility] (DEFAULT)[address] [place] [address] Chloride [Moles/Vol] 111 mmol/L High 98-108 [facility] Comment on above: Performed By: #### NATHANIEL RAMÍREZ ####[facility] (DEFAULT)[address] [facility] [address] CO2 [Moles/Vol] 20 mmol/L Low 21-31 [facility] Comment on above: Performed By: #### NATHANIEL RAMÍREZ ####[facility] (DEFAULT)[address] [place] [address] Creatinine [Mass/Vol] 1.13 mg/dL Normal 0.70-1.30 [facility] Comment on above: Performed By: #### NATHANIEL RAMÍREZ ####[facility] (DEFAULT)[address] [place] [address] GFR/1.73 sq M.predicted among non-blacks MDRD (S/P/Bld) [Vol rate/Area] 78 mL/min/{1.73_m2} Normal >=60 [facility] Comment on above: Result Comment: Repo rted eGFR is based on the CKD-EPI 2020 equation using creatinine, age, and sex. Performed By: #### NATHANIEL RAMÍREZ ####[facility] (DEFAULT)[address] [place] [address] Glucose [Mass/Vol] 109 mg/dL High 70-99 [facility] Comment on above: Performed By: #### NATHANIEL RAMÍREZ ####[facility] (DEFAULT)[address] [place] [address] [place] [address] Osmolality [Osmolality] 295 mosm/kg Normal 278-305 [facility] Comment on above: Performed By: #### NATHANIEL RAMÍREZ ####[facility] (DEFAULT)[address] [facility] [address] Potassium [Moles/Vol] 4.3 mmol/L Normal 3.5-5.0 [facility] Comment on above: Performed By: #### NATHANIEL RAMÍREZ ####[facility] (DEFAULT)[address] [facility] [place] [address] Sodium [Moles/Vol] 140 mmol/L Normal 135-145 [facility] Comment on above: Performed By: #### M HELEN BLOOMM7 ####[facility] (DEFAULT)[address] [place] [place] [address] Urea nitrogen [Mass/Vol] 16 mg/dL Normal 7-25 [facility] Comment on above: Performed By: #### Rod BLOOM CHM7 ####[facility] (DEFAULT)[address] [place] [address] Urea nitrogen/Creatinine [Mass ratio] 14 mg/mg Normal [facility] Comment on above: Performed By: #### Rod BLOOM CHM7 ####[facility] (DEFAULT)[address] [place] [address] Anion gap [Moles/Vol] 13 mmol/L 7 - 17 mmol/L [facility] Chloride [Moles/Vol] 111 mmol/L High 98 - 10 8 mmol/L [facility] CO2 [Moles/Vol] 20 mmol/L Low 21 - 31 mmol/L [facility] Creatinine [Mass/Vol] 1.13 mg/dL 0.70 - 1.30 mg/dL [facility] eGFR, CKD-EPI, Male 78 - PINF [facility] Glucose [Mass/Vol] 109 mg/dL High 70 - 99 mg/dL [facility] Interpretation and review of laboratory results Abnormal [facility] Osmolality Calc [Osmolality] 295 [facility] Potassium [Moles/Vol] 4.3 mmol/L 3.5 - 5.0 mmol/L [facility] Sodium [Moles/Vol] 140 mmol/L 135 - 145 mmol/L [facility] Urea nitrogen [Mass/Vol] 16 mg/dL 7 - 25 mg/dL [facility] Urea nitrogen/Creatinine [Mass ratio] 14 mg[facility]SE POCon 09-11-2023 Glucose [Mass/Vol] 108 mg/dL High 70 - 99 mg/dL [facility] Interpretation and review of laboratory results Abnormal [facility] POC Sample Type CAPBL [facility] Legionella sp identified Org specific cx Nom (Unsp spec)on 09-11-2023 Bacteria identified Cx Nom (Unsp spec) NO GROWTH DAY 7 OF 7 [facility] MAGNESIUMon 09-11-2023 Magnesium [Mass/Vol] 1.6 mg/dL Normal 1.6-2.6 [facility] Comment on above: Performed By: #### M TJ BLOOM7 ####[facility] (DEFAULT)[address] [place] [address] Interpretation and review of laboratory results Normal [facility] Magnesium [Mass/Vol] 1.6 mg/dL 1.6 - 2 .6 mg/dL [facility] No Panel Informationon 09-11 [facility] TACROLIMUS LEVEL, TROUGH (MT E DRUG LEVEL)on 09-11-2023 Interpretation and review of laboratory results Normal [facility] Tacrolimus (Bld) [Mass/Vol] 11.5 ng/mL [facility] Tacrolimus, Trough 11.5 ng/mL Normal Bone Susana ow Transplant: 4.0-12.0, Therapeutic: 5.0-15.0 [facility] Comment on above: Order Comment: Pleas e draw at specified interval PRIOR to dose. Do not hold dose to wait for level. Specimens batched twice per day, (M-F) and once per day weekendsMethod performed is a chemiluminescent microparticle immunoasssay on the [employer] i2000.The range is based on experience at [facility] and users should be aware that target concentrations vary widely depending on concomitant therapy, time post-transplant, and desired degree of immunosuppression. Performed By: #### T ACRO ####[facility] (DEFAULT)[address] [place] [address] CBC,PLATELETSon 09-10-2023 Hematocrit (Bld) [Volume fraction] 40.0 % Normal 39.6-48.8 [facility] Comment on above: Performed By: #### H EMOGC ####[facility] (DEFAULT)[address] [facility] [address] Hemoglobin (Bld) [Mass/Vol] 12.7 g/dL Low 13.4-16.8 [facility] Comment on above: Performed By: #### H EMOGC ####[facility] (DEFAULT)[address] [facility] [address] MCV (RBC) [Entitic vol] 86.0 fL Normal 79.0-94.5 [facility] Comment on above: Performed By: #### H EMOGC ####[facility] (DEFAULT)[address] [place] [address] Mean Cell Hgb 27.3 pg Normal 26.1-33.3 [facility] Comment on above: Performed By: #### H EMOGC ####[facility] (DEFAULT)[address] [facility] [place] [address] Mean Cell Hgb Conc 31.8 g/dL Low 31.9-36.5 [facility] Comment on above: Performed By: #### H EMOGC ####[facility] (DEFAULT)[address] [place] [address] Platelet mean volume (Bld) [Entitic vol] 9.5 fL Normal 8.7-12.3 [facility] Comment on above: Performed By: #### H EMOGC ####[facility] (DEFAULT)[address] [place] [address] Platelets (Bld) [#/Vol] 225 10*3/uL Normal 146-337 [facility] Comment on above: Performed By: #### H EMOGC ####[facility] (DEFAULT)[address] [place] [address] RBC (Bld) [#/Vol] 4.65 10*6/uL Normal 4.38-5.83 [facility] Comment on above: Performed By: #### [facility] ####[facility] (DEFAULT)[address] [place] [address] RBC Distribution 13.9 % Normal 10.9-14.3 [facility] Comment on above: Performed By: #### H [facility] ####[facility] (DEFAULT)[address] [place] [address] WBC (Bld) [#/Vol] 6.52 10*3/uL Normal 3.73-10.10 [facility] Comment on above: Performed By: #### [facility] ####[facility] (DEFAULT)[address] [place] [address] Erythrocyte distribution width (RBC) [Ratio] 13.9 % 10.9 - 14.3 % [facility] Hematocrit (Bld) [Volume fraction] 40.0 % 39.6 - 48.8 % [facility] Hemoglobin (Bld) [Mass/Vol] 12.7 g/dL Low 13.4 - 16.8 g/dL [facility] Interpretation and review of laboratory results Abnormal [facility] MCH (RBC) [Entitic mass] 27.3 pg 26.1 - 33.3 pg [facility] MCHC (RBC) [Mass/Vol] 31.8 g/dL Low 31.9 - 36.5 g/dL [facility] MCV (RBC) [Entitic vol] 86.0 fL 79.0 - 94.5 fL [facility] Platelet mean volume (Bld) [Entitic vol] 9.5 fL 8.7 - 12.3 fL [facility] Platelets (Bld) [#/Vol] 225 10*3/uL 146 - 337 K/uL [facility] RBC (Bld) [#/Vol] 4.65 10*6/uL [facility] WBC (Bld) [#/Vol] 6.52 10*3/uL 3.73 - 10. 10 K/uL [facility] CHEM 7 (LYTES,BUN,CREA,GLUC) on 09-10-2023 Anion gap [Moles/Vol] 13 mmol/L Normal 7-17 [facility] Comment on above: Performed By: #### NATHANIEL RAMÍREZ, HFP ####[facility] (DEFAULT)[address] [place] [address] Chloride [Moles/Vol] 111 mmol/L High 98-108 [facility] Comment on above: Performed By: #### NATHANIEL RAMÍREZ, HFP ####[facility] (DEFAULT)[address] [place] [address] CO2 [Moles/Vol] 20 mmol/L Low 21-31 [facility] Comment on above: Performed By: #### NATHANIEL RAMÍREZ, HFP ####[facility] (DEFAULT)[address] [place] [address] Creatinine [Mass/Vol] 1.27 mg/dL Normal 0.70-1.30 [facility] Comment on above: Performed By: #### NATHANIEL RAMÍREZ, HFP ####[facility] (DEFAULT)[address] [place] [address] GFR/1.73 sq M.predicted among non-blacks MDRD (S/P/Bld) [Vol rate/Area] 68 mL/min/{1.73_m2} Normal >=60 [facility] Comment on above: Result Comment: Repo rted eGFR is based on the CKD-EPI 2020 equation using creatinine, age, and sex. Performed By: #### NATHANIEL RAMÍREZ, HFP ####[facility] (DEFAULT)[address] [place] [address] Glucose [Mass/Vol] 100 mg/dL High 70-99 [facility] Comment on above: Performed By: #### NATHANIEL RAMÍREZ, HFP ####[facility] (DEFAULT)[address] [place] [address] Osmolality [Osmolality] 293 mosm/kg Normal 278-305 [facility] Comment on above: Performed By: #### NATHANIEL RAMÍREZ, HFP ####[facility] (DEFAULT)[address] [place] [address] Potassium [Moles/Vol] 4.4 mmol/L Normal 3.5-5.0 [facility] Comment on above: Performed By: #### NATHANIEL RAMÍREZ, HFP ####[facility] (DEFAULT)[address] [place] [address] Sodium [Moles/Vol] 140 mmol/L Normal 135-145 [facility] Comment on above: Performed By: #### NATHANIEL RAMÍREZ, HFP ####[facility] (DEFAULT)[address] [place] [address] Urea nitrogen [Mass/Vol] 12 mg/dL Normal 7-25 [facility] Comment on above: Performed By: #### NATHANIEL RAMÍREZ, HFP ####[facility] (DEFAULT)[address] [place] [address] Urea nitrogen/Creatinine [Mass ratio] 9 mg/mg Normal [facility] Comment on above: Performed By: #### NATHANIEL RAMÍREZ, HFP ####[facility] (DEFAULT)[address] [place] [address] Anion gap [Moles/Vol] 13 mmol/L 7 - 17 mmol/L [facility] Chloride [Moles/Vol] 111 mmol/L High 98 - 10 8 mmol/L [facility] CO2 [Moles/Vol] 20 mmol/L Low 21 - 31 mmol/L [facility] Creatinine [Mass/Vol] 1.27 mg/dL 0.70 - 1.30 mg/dL [facility] eGFR, CKD-EPI, Male 69 - PINF [facility] Glucose [Mass/Vol] 100 mg/dL High 70 - 99 mg/dL [facility] Osmolality Calc [Osmolality] 293 [facility] Potassium [Moles/Vol] 4.4 mmol/L 3.5 - 5.0 mmol/L [facility] Sodium [Moles/Vol] 140 mmol/L 135 - 145 mmol/L [facility] Urea nitrogen [Mass/Vol] 12 mg/dL 7 - 25 mg/dL [facility] Urea nitrogen/Creatinine [Mass ratio] 9 mg/mg [facility] HEPATIC FUNCTION PANELon Albumin [Mass/Vol] 3.3 g/dL Low 3.5-5.0 [facility] Comment on above: Performed By: #### M MERLE CHM7, HFP ####[facility] (DEFAULT)[address] [facility] [place] [address] ALP [Catalytic activity/Vol] 143 U/L High 32-126 [facility] Comment on above: Performed By: #### M MERLE CHM7, HFP ####[facility] (DEFAULT)[address] [place] [address] ALT [Catalytic activity/Vol] 28 U/L Normal 10-52 [facility] Comment on above: Performed By: #### M MERLE CHM7, HFP ####[facility] (DEFAULT)[address] [place] [place] [address] AST [Catalytic activity/Vol] 29 U/L Normal 10-39 [facility] Comment on above: Performed By: #### M MERLE CHM7, HFP ####[facility] (DEFAULT)[address] [facility] [place] [address] Bilirubin [Mass/Vol] 0.9 mg/dL Normal <1.5 [facility] Comment on above: Performed By: #### M GO CHM7, HFP ####[facility] (DEFAULT)[address] [place] [address] Bilirubin.indirect [Mass/Vol] 0.2 mg/dL Normal <0.3 [facility] Comment on above: Performed By: #### NATHANIEL RAMÍREZ, HFP ####[facility] (DEFAULT)[address] [place] [address] Protein [Mass/Vol] 6.8 g/dL Normal 6.4-8.3 [facility] Comment on above: Performed By: #### M NATHANIEL BLOOM, HFP ####[facility] (DEFAULT)[address] [place] [address] Albumin [Mass/Vol] 3.3 g/dL Low 3.5 - 5.0 g/dL [facility] ALP [Catalytic activity/Vol] 143 U/L High 32 - 126 U/L [facility] ALT [Catalytic activity/Vol] 28 U/L 10 - 52 U/L [facility] AST [Catalytic activity/Vol] 29 U/L 10 - 39 U/L [facility] Bilirubin [Mass/Vol] 0.9 mg/dL [facility] mg/dL [facility] Bilirubin.direct [Mass/Vol] 0.2 mg/dL [facility] - 0.3 mg/dL [facility] Protein [Mass/Vol] 6.8 g/dL 6.4 - 8.3 g/dL [facility] MAGNESIUMon 09-10-2023 Magnesium [Mass/Vol] 1.9 mg/dL Normal 1.6-2.6 [facility] Comment on above: Performed By: #### NATHANIEL RAMÍREZ, HFP ####[facility] (DEFAULT)[address] [place] [address] Interpretation and review of laboratory results Normal [facility] Magnesium [Mass/Vol] 1.9 mg/dL 1.6 - 2 .6 mg/dL [facility] No Panel Informationon 09-10 Interpretation and review of laboratory results Abnormal [facility] TACROLIMUS LEVEL, TROUGH (MT E DRUG LEVEL)Ordered By: Jimy Castillo on 09-10-2023 Interpretation and review of laboratory results Normal [facility] Tacrolimus (Bld) [Mass/Vol] 11.8 ng/mL [facility] TACROLIMUS LEVEL, TROUGH (MT E DRUG LEVEL)on 09-10-2023 Tacrolimus, Trough 11.8 ng/mL Normal Bone Susana ow Transplant: 4.0-12.0, Therapeutic: 5.0-15.0 [facility] Comment on above: Order Comment: Pleas e draw at specified interval PRIOR to dose. Do not hold dose to wait for level. Specimens batched twice per day, (M-) and once per day weekendsMethod performed is a chemiluminescent microparticle immunoasssay on the [employer] i2000.The range is based on experience at [facility] and users should be aware that target concentrations vary widely depending on concomitant therapy, time post-transplant, and desired degree of immunosuppression. Performed By: #### T ACRO ####[facility] (DEFAULT)[address] [place] [address] CHEM 7 (LYTES,BUN,CREA,GLUC) on 09-09-2023 Anion gap [Moles/Vol] 14 mmol/L Normal 7-17 [facility] Comment on above: Performed By: #### Rod BLOOM CHM7, IPB ####[facility] (DEFAULT)[address] [place] [address] Chloride [Moles/Vol] 113 mmol/L High 98-108 [facility] Comment on above: Performed By: #### M MERLE CHM7, IPB ####[facility] (DEFAULT)[address] [place] [address] CO2 [Moles/Vol] 18 mmol/L Low 21-31 [facility] Comment on above: Performed By: #### M MERLE CHM7, IPB ####[facility] (DEFAULT)[address] [place] [address] Creatinine [Mass/Vol] 1.03 mg/dL Normal 0.70-1.30 [facility] Comment on above: Performed By: #### NATHANIEL RAMÍREZ, IPB ####[facility] (DEFAULT)[address] [place] [address] GFR/1.73 sq M.predicted among non-blacks MDRD (S/P/Bld) [Vol rate/Area] 87 mL/min/{1.73_m2} Normal >=60 [facility] Comment on above: Result Comment: Repo rted eGFR is based on the CKD-EPI 2020 equation using creatinine, age, and sex. Performed By: #### NATHANIEL RAMÍREZ, IPB ####[facility] (DEFAULT)[address] [facility] [place] [address] Glucose [Mass/Vol] 106 mg/dL High 70-99 [facility] Comment on above: Performed By: #### NATHANIEL RAMÍREZ, IPB ####[facility] (DEFAULT)[address] [facility] [place] [address] Osmolality [Osmolality] 294 mosm/kg Normal 278-305 [facility] Comment on above: Performed By: #### NATHANIEL RAMÍREZ, IPB ####[facility] (DEFAULT)[address] [facility] [place] [address] Potassium [Moles/Vol] 4.0 mmol/L Normal 3.5-5.0 [facility] Comment on above: Performed By: #### NATHANIEL RAMÍREZ, IPB ####[facility] (DEFAULT)[address] [place] [address] Sodium [Moles/Vol] 141 mmol/L Normal 135-145 [facility] Comment on above: Performed By: #### NATHANIEL RAMÍREZ, IPB ####[facility] (DEFAULT)[address] [place] [place] [address] Urea nitrogen [Mass/Vol] 10 mg/dL Normal 7-25 [facility] Comment on above: Performed By: #### M NATHANIEL BLOOM, IPB ####[facility] (DEFAULT)[address] [place] [address] Urea nitrogen/Creatinine [Mass ratio] 10 mg/mg Normal [facility] Comment on above: Performed By: #### M NATHANIEL BLOOM, IPB ####[facility] (DEFAULT)[address] [place] [address] Anion gap [Moles/Vol] 14 mmol/L 7 - 17 mmol/L [facility] Chloride [Moles/Vol] 113 mmol/L High 98 - 10 8 mmol/L [facility] CO2 [Moles/Vol] 18 mmol/L Low 21 - 31 mmol/L [facility] Creatinine [Mass/Vol] 1.03 mg/dL 0.70 - 1.30 mg/dL [facility] eGFR, CKD-EPI, Male 87 - PINF [facility] Glucose [Mass/Vol] 106 mg/dL High 70 - 99 mg/dL [facility] Interpretation and review of laboratory results Abnormal [facility] Osmolality Calc [Osmolality] 294 [facility] Potassium [Moles/Vol] 4.0 mmol/L 3.5 - 5.0 mmol/L [facility] Sodium [Moles/Vol] 141 mmol/L 135 - 145 mmol/L [facility] Urea nitrogen [Mass/Vol] 10 mg/dL 7 - 25 mg/dL [facility] Urea nitrogen/Creatinine [Mass ratio] 10 mg/mg [facility] MAGNESIUMon 09-09-2023 Magnesium [Mass/Vol] 1.6 mg/dL Normal 1.6-2.6 [facility] Comment on above: Performed By: #### NATHANIEL RAMÍREZ, IPB ####[facility] (DEFAULT)[address] [place] [address] Magnesium [Mass/Vol] 1.6 mg/dL 1.6 - 2 .6 mg/dL [facility] No Panel Informationon 09-09 Interpretation and review of laboratory results Normal [facility] PHOSPHATE, INORGANICon 09-09 Phosphorous 3.8 mg/dL Normal 2.2-4.6 [facility] Comment on above: Performed By: #### M GO, M7, IPB ####[facility] (DEFAULT)[address] [place] [address] Phosphate [Mass/Vol] 3.8 mg/dL 2.2 - 4 .6 mg/dL [facility] TACROLIMUS LEVEL, TROUGH (MT E DRUG LEVEL)on 09-09-2023 Interpretation and review of laboratory results Normal [facility] Tacrolimus (Bld) [Mass/Vol] 9.2 ng/mL [facility] Tacrolimus, Trough 9.2 ng/mL Normal Bone Susana ow Transplant: 4.0-12.0, Therapeutic: 5.0-15.0 [facility] Comment on above: Order Comment: Pleas e draw at specified interval PRIOR to dose. Do not hold dose to wait for level. Specimens batched twice per day, (M-) and once per day weekendsMethod performed is a chemiluminescent microparticle immunoasssay on the [employer] i2000.The range is based on experience at [facility] and users should be aware that target concentrations vary widely depending on concomitant therapy, time post-transplant, and desired degree of immunosuppression. Performed By: #### T ACRO ####[facility] (DEFAULT)[address] [place] [address] CBC,PLATELETSon 09-08-2023 Hematocrit (Bld) [Volume fraction] 36.1 % Low 39.6-48.8 [facility] Comment on above: Performed By: #### H [facility] ####[facility] (DEFAULT)[address] [place] [address] Hemoglobin (Bld) [Mass/Vol] 11.6 g/dL Low 13.4-16.8 [facility] Comment on above: Performed By: #### H EMOGC ####[facility] (DEFAULT)[address] [facility] [place] [address] MCV (RBC) [Entitic vol] 85.1 fL Normal 79.0-94.5 [facility] Comment on above: Performed By: #### H EMOGC ####[facility] (DEFAULT)[address] [facility] [place] [address] Mean Cell Hgb 27.4 pg Normal 26.1-33.3 [facility] Comment on above: Performed By: #### H EMOGC ####[facility] (DEFAULT)[address] [facility] [place] [address] Mean Cell Hgb Conc 32.1 g/dL Normal 31.9-36.5 [facility] Comment on above: Performed By: #### H EMOGC ####[facility] (DEFAULT)[address] [facility] [place] [address] Platelet mean volume (Bld) [Entitic vol] 9.5 fL Normal 8.7-12.3 [facility] Comment on above: Performed By: #### H EMOGC ####[facility] (DEFAULT)[address] [facility] [place] [address] Platelets (Bld) [#/Vol] 182 10*3/uL Normal 146-337 [facility] Comment on above: Performed By: #### H EMOGC ####[facility] (DEFAULT)[address] [facility] [place] [address] RBC (Bld) [#/Vol] 4.24 10*6/uL Low 4.38-5.83 [facility] Comment on above: Performed By: #### H EMOGC ####[facility] (DEFAULT)[address] [facility] [place] [address] RBC Distribution 13.6 % Normal 10.9-14.3 [facility] Comment on above: Performed By: #### H [facility] ####[facility] (DEFAULT)[address] [place] [address] WBC (Bld) [#/Vol] 4.59 10*3/uL Normal 3.73-10.10 [facility] Comment on above: Performed By: #### H [facility] ####[facility] (DEFAULT)[address] [place] [address] Erythrocyte distribution width (RBC) [Ratio] 13.6 % 10.9 - 14.3 % [facility] Hematocrit (Bld) [Volume fraction] 36.1 % Low 39.6 - 48.8 % [facility] Hemoglobin (Bld) [Mass/Vol] 11.6 g/dL Low 13.4 - 16.8 g/dL [facility] Interpretation and review of laboratory results Abnormal [facility] MCH (RBC) [Entitic mass] 27.4 pg 26.1 - 33.3 pg [facility] MCHC (RBC) [Mass/Vol] 32.1 g/dL 31.9 - 36.5 g/dL [facility] MCV (RBC) [Entitic vol] 85.1 fL 79.0 - 94.5 fL [facility] Platelet mean volume (Bld) [Entitic vol] 9.5 fL 8.7 - 12.3 fL [facility] Platelets (Bld) [#/Vol] 182 10*3/uL 146 - 337 K/uL [facility] RBC (Bld) [#/Vol] 4.24 10*6/uL Low [facility] WBC (Bld) [#/Vol] 4.59 10*3/uL 3.73 - 10. 10 K/uL [facility] CHEM 7 (LYTES,BUN,CREA,GLUC) on 09-08-2023 Anion gap [Moles/Vol] 12 mmol/L Normal 7-17 [facility] Comment on above: Performed By: #### M GO, CHM7, HFP, IPB ####[facility] (DEFAULT)[address] [facility] [address] Chloride [Moles/Vol] 113 mmol/L High 98-108 [facility] Comment on above: Performed By: #### M GO, CHM7, HFP, IPB ####[facility] (DEFAULT)[address] [place] [address] CO2 [Moles/Vol] 21 mmol/L Normal 21-31 [facility] Comment on above: Performed By: #### M GO, CHM7, HFP, IPB ####[facility] (DEFAULT)[address] [place] [address] Creatinine [Mass/Vol] 1.14 mg/dL Normal 0.70-1.30 [facility] Comment on above: Performed By: #### M MERLE CHM7, HFP, IPB ####[facility] (DEFAULT)[address] [place] [address] GFR/1.73 sq M.predicted among non-blacks MDRD (S/P/Bld) [Vol rate/Area] 77 mL/min/{1.73_m2} Normal >=60 [facility] Comment on above: Result Comment: Repo rted eGFR is based on the CKD-EPI 2020 equation using creatinine, age, and sex. Performed By: #### M MERLE, CHM7, HFP, IPB ####[facility] (DEFAULT)[address] [place] [address] Glucose [Mass/Vol] 107 mg/dL High 70-99 [facility] Comment on above: Performed By: #### M MERLE, CHM7, HFP, IPB ####[facility] (DEFAULT)[address] [facility] [place] [address] Osmolality [Osmolality] 296 mosm/kg Normal 278-305 [facility] Comment on above: Performed By: #### M GO, CHM7, HFP, IPB ####[facility] (DEFAULT)[address] [place] [address] Potassium [Moles/Vol] 3.9 mmol/L Normal 3.5-5.0 [facility] Comment on above: Performed By: #### M MERLE, CHM7, HFP, IPB ####[facility] (DEFAULT)[address] [place] [address] Sodium [Moles/Vol] 142 mmol/L Normal 135-145 [facility] Comment on above: Performed By: #### M GO, CHM7, HFP, IPB ####[facility] (DEFAULT)[address] [facility] [address] Urea nitrogen [Mass/Vol] 11 mg/dL Normal 7-25 [facility] Comment on above: Performed By: #### M MERLE, CHM7, HFP, IPB ####[facility] (DEFAULT)[address] [place] [address] Urea nitrogen/Creatinine [Mass ratio] 10 mg/mg Normal [facility] Comment on above: Performed By: #### M MERLE, CHM7, HFP, IPB ####[facility] (DEFAULT)[address] [place] [address] Anion gap [Moles/Vol] 12 mmol/L 7 - 17 mmol/L [facility] Chloride [Moles/Vol] 113 mmol/L High 98 - 10 8 mmol/L [facility] CO2 [Moles/Vol] 21 mmol/L 21 - 31 mmol/L [facility] Creatinine [Mass/Vol] 1.14 mg/dL 0.70 - 1.30 mg/dL [facility] Glucose [Mass/Vol] 107 mg/dL High 70 - 99 mg/dL [facility] Osmolality Calc [Osmolality] 296 [facility] Potassium [Moles/Vol] 3.9 mmol/L 3.5 - 5.0 mmol/L [facility] Sodium [Moles/Vol] 142 mmol/L 135 - 145 mmol/L [facility] Urea nitrogen [Mass/Vol] 11 mg/dL 7 - 25 mg/dL [facility] Urea nitrogen/Creatinine [Mass ratio] 10 mg/mg [facility] HEPATIC FUNCTION PANELon Albumin [Mass/Vol] 2.9 g/dL Low 3.5-5.0 [facility] Comment on above: Performed By: #### M GO, CHM7, HFP, IPB ####[facility] (DEFAULT)[address] [place] [address] ALP [Catalytic activity/Vol] 133 U/L High 32-126 [facility] Comment on above: Performed By: #### M GO, CHM7, HFP, IPB ####[facility] (DEFAULT)[address] [place] [address] ALT [Catalytic activity/Vol] 23 U/L Normal 10-52 [facility] Comment on above: Performed By: #### M GO, CHM7, HFP, IPB ####[facility] (DEFAULT)[address] [place] [address] AST [Catalytic activity/Vol] 23 U/L Normal 10-39 [facility] Comment on above: Performed By: #### M GO, CHM7, HFP, IPB ####[facility] (DEFAULT)[address] [place] [address] Bilirubin [Mass/Vol] 0.8 mg/dL Normal <1.5 [facility] Comment on above: Performed By: #### M GO, CHM7, HFP, IPB ####[facility] (DEFAULT)[address] [place] [address] Bilirubin.indirect [Mass/Vol] 0.2 mg/dL Normal <0.3 [facility] Comment on above: Performed By: #### M GO, CHM7, HFP, IPB ####[facility] (DEFAULT)[address] [place] [address] Protein [Mass/Vol] 5.9 g/dL Low 6.4-8.3 [facility] Comment on above: Performed By: #### M NATHANIEL BLOOM, TAVO, IPB ####[facility] (DEFAULT)[address] [place] [address] Albumin [Mass/Vol] 2.9 g/dL Low 3.5 - 5.0 g/dL [facility] ALP [Catalytic activity/Vol] 133 U/L High 32 - 126 U/L [facility] ALT [Catalytic activity/Vol] 23 U/L 10 - 52 U/L [facility] AST [Catalytic activity/Vol] 23 U/L 10 - 39 U/L [facility] Bilirubin [Mass/Vol] 0.8 mg/dL NINF - 1.5 mg/dL [facility] Bilirubin.direct [Mass/Vol] 0.2 mg/dL NINF - 0.3 mg/dL [facility] Protein [Mass/Vol] 5.9 g/dL Low 6.4 - 8.3 g/dL [facility] MAGNESIUMon 09-08-2023 Magnesium [Mass/Vol] 1.8 mg/dL Normal 1.6-2.6 [facility] Comment on above: Performed By: #### M NATHANIEL BLOOM, TAVO, IPB ####[facility] (DEFAULT)[address] [place] [address] Interpretation and review of laboratory results Normal [facility] Magnesium [Mass/Vol] 1.8 mg/dL 1.6 - 2 .6 mg/dL [facility] No Panel Informationon 09-08 Interpretation and review of laboratory results Abnormal [facility] PHOSPHATE, INORGANICon 09-08 Interpretation and review of laboratory results Normal [facility] Phosphate [Mass/Vol] 4.1 mg/dL 2.2 - 4 .6 mg/dL [facility] Phosphorous 4.1 mg/dL Normal 2.2-4.6 [facility] Comment on above: Performed By: #### M GO, CHM7, HFP, IPB ####[facility] (DEFAULT)[address] [place] [address] TACROLIMUS LEVEL, TROUGH (MT E DRUG LEVEL)on 09-08-2023 Interpretation and review of laboratory results Normal [facility] Tacrolimus (Bld) [Mass/Vol] 8.5 ng/mL [facility] Tacrolimus, Trough 8.5 ng/mL Normal Bone Susana ow Transplant: 4.0-12.0, Therapeutic: 5.0-15.0 [facility] Comment on above: Order Comment: Pleas e draw at specified interval PRIOR to dose. Do not hold dose to wait for level. Specimens batched twice per day, (M-F) and once per day weekendsMethod performed is a chemiluminescent microparticle immunoasssay on the [employer] i2000.The range is based on experience at [facility] and users should be aware that target concentrations vary widely depending on concomitant therapy, time post-transplant, and desired degree of immunosuppression. Performed By: #### T ACRO ####[facility] (DEFAULT)[address] [place] [address] CBC,PLATELETSon 09-07-2023 Hematocrit (Bld) [Volume fraction] 37.1 % Low 39.6-48.8 [facility] Comment on above: Performed By: #### H [facility] ####[facility] (DEFAULT)[address] [place] [address] Hemoglobin (Bld) [Mass/Vol] 11.9 g/dL Low 13.4-16.8 [facility] Comment on above: Performed By: #### H [facility] ####[facility] (DEFAULT)[address] [place] [address] MCV (RBC) [Entitic vol] 86.5 fL Normal 79.0-94.5 [facility] Comment on above: Performed By: #### H EMOGC ####[facility] (DEFAULT)[address] [place] [address] Mean Cell Hgb 27.7 pg Normal 26.1-33.3 [facility] Comment on above: Performed By: #### H EMOGC ####[facility] (DEFAULT)[address] [place] [address] Mean Cell Hgb Conc 32.1 g/dL Normal 31.9-36.5 [facility] Comment on above: Performed By: #### H EMOGC ####[facility] (DEFAULT)[address] [place] [address] Platelet mean volume (Bld) [Entitic vol] 9.6 fL Normal 8.7-12.3 [facility] Comment on above: Performed By: #### H EMOGC ####[facility] (DEFAULT)[address] [place] [address] Platelets (Bld) [#/Vol] 176 10*3/uL Normal 146-337 [facility] Comment on above: Performed By: #### H EMOGC ####[facility] (DEFAULT)[address] [place] [address] RBC (Bld) [#/Vol] 4.29 10*6/uL Low 4.38-5.83 [facility] Comment on above: Performed By: #### H EMOGC ####[facility] (DEFAULT)[address] [place] [address] RBC Distribution 13.5 % Normal 10.9-14.3 [facility] Comment on above: Performed By: #### H EMOGC ####[facility] (DEFAULT)[address] [place] [address] WBC (Bld) [#/Vol] 4.10 10*3/uL Normal 3.73-10.10 [facility] Comment on above: Performed By: #### H [facility] ####[facility] (DEFAULT)[address] [place] [address] Erythrocyte distribution width (RBC) [Ratio] 13.5 % 10.9 - 14.3 % [facility] Hematocrit (Bld) [Volume fraction] 37.1 % Low 39.6 - 48.8 % [facility] Hemoglobin (Bld) [Mass/Vol] 11.9 g/dL Low 13.4 - 16.8 g/dL [facility] Interpretation and review of laboratory results Abnormal [facility] MCH (RBC) [Entitic mass] 27.7 pg 26.1 - 33.3 pg [facility] MCHC (RBC) [Mass/Vol] 32.1 g/dL 31.9 - 36.5 g/dL [facility] MCV (RBC) [Entitic vol] 86.5 fL 79.0 - 94.5 fL [facility] Platelet mean volume (Bld) [Entitic vol] 9.6 fL 8.7 - 12.3 fL [facility] Platelets (Bld) [#/Vol] 176 10*3/uL 146 - 337 K/uL [facility] RBC (Bld) [#/Vol] 4.29 10*6/uL Low [facility] WBC (Bld) [#/Vol] 4.10 10*3/uL 3.73 - 10. 10 K/uL [facility] CHEM 7 (LYTES,BUN,CREA,GLUC) on 09-07-2023 Anion gap [Moles/Vol] 13 mmol/L Normal 7-17 [facility] Comment on above: Performed By: #### NATHANIEL RAMÍREZ, TAVO, IPB ####[facility] (DEFAULT)[address] [place] [address] Chloride [Moles/Vol] 113 mmol/L High 98-108 [facility] Comment on above: Performed By: #### M GO, CHM7, HFP, IPB ####[facility] (DEFAULT)[address] [facility] [place] [address] CO2 [Moles/Vol] 19 mmol/L Low 21-31 [facility] Comment on above: Performed By: #### M GO, CHM7, HFP, IPB ####[facility] (DEFAULT)[address] [place] [address] Creatinine [Mass/Vol] 1.22 mg/dL Normal 0.70-1.30 [facility] Comment on above: Performed By: #### M MERLE CHM7, HFP, IPB ####[facility] (DEFAULT)[address] [place] [address], [place] [address] GFR/1.73 sq M.predicted among non-blacks MDRD (S/P/Bld) [Vol rate/Area] 71 mL/min/{1.73_m2} Normal >=60 [facility] Comment on above: Result Comment: Repo rted eGFR is based on the CKD-EPI 2020 equation using creatinine, age, and sex. Performed By: #### M MERLE CHM7, HFP, IPB ####[facility] (DEFAULT)[address] [place] [address] Glucose [Mass/Vol] 107 mg/dL High 70-99 [facility] Comment on above: Performed By: #### Rod BLOOM CHM7, HFP, IPB ####[facility] (DEFAULT)[address] [facility] [place] [address] Osmolality [Osmolality] 295 mosm/kg Normal 278-305 [facility] Comment on above: Performed By: #### M MERLE CHM7, HFP, IPB ####[facility] (DEFAULT)[address] [facility] [place] [address] Potassium [Moles/Vol] 3.9 mmol/L Normal 3.5-5.0 [facility] Comment on above: Performed By: #### M GO CHM7, HFP, IPB ####[facility] (DEFAULT)[address] [facility] [place] [address] Sodium [Moles/Vol] 141 mmol/L Normal 135-145 [facility] Comment on above: Performed By: #### M GO, CHM7, HFP, IPB ####[facility] (DEFAULT)[address] [facility] [place] [address] Urea nitrogen [Mass/Vol] 13 mg/dL Normal 7-25 [facility] Comment on above: Performed By: #### M GO, CHM7, HFP, IPB ####[facility] (DEFAULT)[address] [facility] [place] [address] Urea nitrogen/Creatinine [Mass ratio] 11 mg/mg Normal [facility] Comment on above: Performed By: #### M GO, CHM7, HFP, IPB ####[facility] (DEFAULT)[address] [place] [address] Anion gap [Moles/Vol] 13 mmol/L 7 - 17 mmol/L [facility] Chloride [Moles/Vol] 113 mmol/L High 98 - 10 8 mmol/L [facility] CO2 [Moles/Vol] 19 mmol/L Low 21 - 31 mmol/L [facility] Creatinine [Mass/Vol] 1.22 mg/dL 0.70 - 1.30 mg/dL [facility] eGFR, CKD-EPI, Male 71 - [facility] Glucose [Mass/Vol] 107 mg/dL High 70 - 99 mg/dL [facility] Osmolality Calc [Osmolality] 295 [facility] Potassium [Moles/Vol] 3.9 mmol/L 3.5 - 5.0 mmol/L [facility] Sodium [Moles/Vol] 141 mmol/L 135 - 145 mmol/L [facility] Urea nitrogen [Mass/Vol] 13 mg/dL 7 - 25 mg/dL [facility] Urea nitrogen/Creatinine [Mass ratio] 11 mg/mg [facility] HEPATIC FUNCTION PANELon 10- 09-2023 Albumin [Mass/Vol] 2.9 g/dL Low 3.5-5.0 [facility] Comment on above: Performed By: #### M GO, CHM7, HFP, IPB ####[facility] (DEFAULT)[address] [place] [address] ALP [Catalytic activity/Vol] 111 U/L Normal 32-126 [facility] Comment on above: Performed By: #### M GO, CHM7, HFP, IPB ####[facility] (DEFAULT)[address] [place] [address] ALT [Catalytic activity/Vol] 18 U/L Normal 10-52 [facility] Comment on above: Performed By: #### M GO, CHM7, HFP, IPB ####[facility] (DEFAULT)[address] [place] [address] AST [Catalytic activity/Vol] 23 U/L Normal 10-39 [facility] Comment on above: Performed By: #### M GO, CHM7, HFP, IPB ####[facility] (DEFAULT)[address] [place] [address] Bilirubin [Mass/Vol] 0.8 mg/dL Normal <1.5 [facility] Comment on above: Performed By: #### M GO, CHM7, HFP, IPB ####[facility] (DEFAULT)[address] [place] [address] Bilirubin.indirect [Mass/Vol] 0.3 mg/dL High <0.3 [facility] Comment on above: Performed By: #### M GO, CHM7, HFP, IPB ####[facility] (DEFAULT)[address] [place] [address] Protein [Mass/Vol] 6.0 g/dL Low 6.4-8.3 [facility] Comment on above: Performed By: #### M GO, CHM7, HFP, IPB ####[facility] (DEFAULT)[address] [place] [address] Albumin [Mass/Vol] 2.9 g/dL Low 3.5 - 5.0 g/dL [facility] ALP [Catalytic activity/Vol] 111 U/L 32 - 126 U/L [facility] ALT [Catalytic activity/Vol] 18 U/L 10 - 52 U/L [facility] AST [Catalytic activity/Vol] 23 U/L 10 - 39 U/L [facility] Bilirubin [Mass/Vol] 0.8 mg/dL NINF - 1.5 mg/dL [facility] Bilirubin.direct [Mass/Vol] 0.3 mg/dL High NINF - 0.3 mg/dL [facility] Protein [Mass/Vol] 6.0 g/dL Low 6.4 - 8.3 g/dL [facility] MAGNESIUMon 09-07-2023 Magnesium [Mass/Vol] 1.7 mg/dL Normal 1.6-2.6 [facility] Comment on above: Performed By: #### NATHANIEL RAMÍREZ, TAVO, IPB ####[facility] (DEFAULT)[address] [place] [address] Interpretation and review of laboratory results Normal [facility] Magnesium [Mass/Vol] 1.7 mg/dL 1.6 - 2 .6 mg/dL [facility] No Panel Informationon 09-07 Interpretation and review of laboratory results Abnormal [facility] PHOSPHATE, INORGANICon 09-07 Phosphorous 4.4 mg/dL Normal 2.2-4.6 [facility] Comment on above: Performed By: #### NATHANIEL RAMÍREZ, HFP, IPB ####[facility] (DEFAULT)[address] [place] [address] Interpretation and review of laboratory results Normal [facility] Phosphate [Mass/Vol] 4.4 mg/dL 2.2 - 4 .6 mg/dL [facility] TACROLIMUS LEVEL, TROUGH (MT E DRUG LEVEL)Ordered By: Elizabeth Maldonado on 09-07-2023 Interpretation and review of laboratory results Normal [facility] Tacrolimus (Bld) [Mass/Vol] 7.8 ng/mL [facility] TACROLIMUS LEVEL, TROUGH (MT E DRUG LEVEL)on 09-07-2023 Tacrolimus, Trough 7.8 ng/mL Normal Bone Susana ow Transplant: 4.0-12.0, Therapeutic: 5.0-15.0 [facility] Comment on above: Order Comment: Pleas e draw at specified interval PRIOR to dose. Do not hold dose to wait for level. Specimens batched twice per day, (M-F) and once per day weekendsMethod performed is a chemiluminescent microparticle immunoasssay on the [employer] i2000.The range is based on experience at [facility] and users should be aware that target concentrations vary widely depending on concomitant therapy, time post-transplant, and desired degree of immunosuppression. Performed By: #### T ACRO ####[facility] (DEFAULT)[address] [place] [address] CBC,PLATELETSon 09-06-2023 Hematocrit (Bld) [Volume fraction] 38.4 % Low 39.6-48.8 [facility] Comment on above: Performed By: #### [facility] ####[facility] (DEFAULT)[address] [place] [address] Hemoglobin (Bld) [Mass/Vol] 11.9 g/dL Low 13.4-16.8 [facility] Comment on above: Performed By: #### [facility] ####[facility] (DEFAULT)[address] [place] [address] MCV (RBC) [Entitic vol] 85.9 fL Normal 79.0-94.5 [facility] Comment on above: Performed By: #### H EMO ####[facility] (DEFAULT)[address] [place] [address] Mean Cell Hgb 26.6 pg Normal 26.1-33.3 [facility] Comment on above: Performed By: #### H EMOGC ####[facility] (DEFAULT)[address] [place] [address] Mean Cell Hgb Conc 31.0 g/dL Low 31.9-36.5 [facility] Comment on above: Performed By: #### H EMOGC ####[facility] (DEFAULT)[address] [facility] [address] Platelet mean volume (Bld) [Entitic vol] 9.7 fL Normal 8.7-12.3 [facility] Comment on above: Performed By: #### H EMOGC ####[facility] (DEFAULT)[address] [facility] [place] [address] Platelets (Bld) [#/Vol] 181 10*3/uL Normal 146-337 [facility] Comment on above: Performed By: #### H EMOGC ####[facility] (DEFAULT)[address] [place] [address] RBC (Bld) [#/Vol] 4.47 10*6/uL Normal 4.38-5.83 [facility] Comment on above: Performed By: #### H EMOGC ####[facility] (DEFAULT)[address] [place] [address] RBC Distribution 13.4 % Normal 10.9-14.3 [facility] Comment on above: Performed By: #### H EMOGC ####[facility] (DEFAULT)[address] [place] [address] WBC (Bld) [#/Vol] 4.41 10*3/uL Normal 3.73-10.10 [facility] Comment on above: Performed By: #### H EMOGC ####[facility] (DEFAULT)[address] [place] [address] Erythrocyte distribution width (RBC) [Ratio] 13.4 % 10.9 - 14.3 % [facility] Hematocrit (Bld) [Volume fraction] 38.4 % Low 39.6 - 48.8 % [facility] Hemoglobin (Bld) [Mass/Vol] 11.9 g/dL Low 13.4 - 16.8 g/dL [facility] Interpretation and review of laboratory results Abnormal [facility] MCH (RBC) [Entitic mass] 26.6 pg 26.1 - 33.3 pg [facility] MCHC (RBC) [Mass/Vol] 31.0 g/dL Low 31.9 - 36.5 g/dL [facility] MCV (RBC) [Entitic vol] 85.9 fL 79.0 - 94.5 fL [facility] Platelet mean volume (Bld) [Entitic vol] 9.7 fL 8.7 - 12.3 fL [facility] Platelets (Bld) [#/Vol] 181 10*3/uL 146 - 337 K/uL [facility] RBC (Bld) [#/Vol] 4.47 10*6/uL [facility] WBC (Bld) [#/Vol] 4.41 10*3/uL 3.73 - 10. 10 K/uL [facility] CHEM 7 (LYTES,BUN,CREA,GLUC) on 09-06-2023 Anion gap [Moles/Vol] 14 mmol/L 7 - 17 mmol/L [facility] Chloride [Moles/Vol] 109 mmol/L High 98 - 10 8 mmol/L [facility] CO2 [Moles/Vol] 19 mmol/L Low 21 - 31 mmol/L [facility] Creatinine [Mass/Vol] 1.26 mg/dL 0.70 - 1.30 mg/dL [facility] eGFR, CKD-EPI, Male 69 - PINF [facility] Glucose [Mass/Vol] 114 mg/dL High 70 - 99 mg/dL [facility] Osmolality Calc [Osmolality] 291 [facility] Potassium [Moles/Vol] 4.1 mmol/L 3.5 - 5.0 mmol/L [facility] Sodium [Moles/Vol] 138 mmol/L 135 - 145 mmol/L [facility] Urea nitrogen [Mass/Vol] 16 mg/dL 7 - 25 mg/dL [facility] Urea nitrogen/Creatinine [Mass ratio] 13 mg/mg [facility] Anion gap [Moles/Vol] 14 mmol/L Normal 7-17 [facility] Comment on above: Performed By: #### NATHANIEL RAMÍREZ, HFP ####[facility] (DEFAULT)[address] [place] [address] Chloride [Moles/Vol] 109 mmol/L High 98-108 [facility] Comment on above: Performed By: #### NATHANIEL RAMÍREZ, HFP ####[facility] (DEFAULT)[address] [place] [address] CO2 [Moles/Vol] 19 mmol/L Low 21-31 [facility] Comment on above: Performed By: #### NATHANIEL RAMÍREZ, HFP ####[facility] (DEFAULT)[address] [place] [address] Creatinine [Mass/Vol] 1.26 mg/dL Normal 0.70-1.30 [facility] Comment on above: Performed By: #### NATHANIEL RAMÍREZ, HFP ####[facility] (DEFAULT)[address] [place] [address] GFR/1.73 sq M.predicted among non-blacks MDRD (S/P/Bld) [Vol rate/Area] 69 mL/min/{1.73_m2} Normal >=60 [facility] Comment on above: Result Comment: Repo rted eGFR is based on the CKD-EPI 2020 equation using creatinine, age, and sex. Performed By: #### NATHANIEL RAMÍREZ, HFP ####[facility] (DEFAULT)[address] [place] [address] Glucose [Mass/Vol] 114 mg/dL High 70-99 [facility] Comment on above: Performed By: #### NATHANIEL RAMÍREZ, HFP ####[facility] (DEFAULT)[address] [place] [address] Osmolality [Osmolality] 291 mosm/kg Normal 278-305 [facility] Comment on above: Performed By: #### NATHANIEL RAMÍREZ, HFP ####[facility] (DEFAULT)[address] [facility] [address] Potassium [Moles/Vol] 4.1 mmol/L Normal 3.5-5.0 [facility] Comment on above: Performed By: #### NATHANIEL RAMÍREZ, HFP ####[facility] (DEFAULT)[address] [facility] [address] Sodium [Moles/Vol] 138 mmol/L Normal 135-145 [facility] Comment on above: Performed By: #### NATHANIEL RAMÍREZ, HFP ####[facility] (DEFAULT)[address] [place] [address] Urea nitrogen [Mass/Vol] 16 mg/dL Normal 7-25 [facility] Comment on above: Performed By: #### TJ RAMÍREZ7, HFP ####[facility] (DEFAULT)[address] [facility] [place] [address] Urea nitrogen/Creatinine [Mass ratio] 13 mg/mg Normal [facility] Comment on above: Performed By: #### NATHANIEL RAMÍREZ, HFP ####[facility] (DEFAULT)[address] [place] [address] HEPATIC FUNCTION PANELon Albumin [Mass/Vol] 3.0 g/dL Low 3.5 - 5.0 g/dL [facility] ALP [Catalytic activity/Vol] 115 U/L 32 - 126 U/L [facility] ALT [Catalytic activity/Vol] 25 U/L 10 - 52 U/L [facility] AST [Catalytic activity/Vol] 31 U/L 10 - 39 U/L [facility] Bilirubin [Mass/Vol] 1.0 mg/dL NINF - 1.5 mg/dL [facility] Bilirubin.direct [Mass/Vol] 0.3 mg/dL High NINF - 0.3 mg/dL [facility] Protein [Mass/Vol] 6.3 g/dL Low 6.4 - 8.3 g/dL [facility] Albumin [Mass/Vol] 3.0 g/dL Low 3.5-5.0 [facility] Comment on above: Performed By: #### NATHANIEL RAMÍREZ, HFP ####[facility] (DEFAULT)[address] [place] [address] ALP [Catalytic activity/Vol] 115 U/L Normal 32-126 [facility] Comment on above: Performed By: #### NATHANIEL RAMÍREZ, HFP ####[facility] (DEFAULT)[address] [place] [address] ALT [Catalytic activity/Vol] 25 U/L Normal 10-52 [facility] Comment on above: Performed By: #### TJ RAMÍREZ7, HFP ####[facility] (DEFAULT)[address] [place] [address] AST [Catalytic activity/Vol] 31 U/L Normal 10-39 [facility] Comment on above: Performed By: #### Rod BLOOM CHM7, HFP ####[facility] (DEFAULT)[address] [place] [address] Bilirubin [Mass/Vol] 1.0 mg/dL Normal <1.5 [facility] Comment on above: Performed By: #### Rod BLOOM CHM7, HFP ####[facility] (DEFAULT)[address] [place] [address] Bilirubin.indirect [Mass/Vol] 0.3 mg/dL High <0.3 [facility] Comment on above: Performed By: #### M NATHANIEL BLOOM, HFP ####[facility] (DEFAULT)[address] [place] [address] Protein [Mass/Vol] 6.3 g/dL Low 6.4-8.3 [facility] Comment on above: Performed By: #### M NATHANIEL BLOOM, HFP ####[facility] (DEFAULT)[address] [place] [address] MAGNESIUMon 09-06-2023 Interpretation and review of laboratory results Normal [facility] Magnesium [Mass/Vol] 2.0 mg/dL 1.6 - 2 .6 mg/dL [facility] Magnesium [Mass/Vol] 2.0 mg/dL Normal 1.6-2.6 [facility] Comment on above: Performed By: #### NATHANIEL RAMÍREZ, HFP ####[facility] (DEFAULT)[address] [place] [address] No Panel Informationon 09-06 Interpretation and review of laboratory results Abnormal [facility] TACROLIMUS LEVEL, TROUGH (MT E DRUG LEVEL)on 09-06-2023 Interpretation and review of laboratory results Normal [facility] Tacrolimus (Bld) [Mass/Vol] 6.7 ng/mL [facility] Tacrolimus, Trough 6.7 ng/mL Normal Bone Susana ow Transplant: 4.0-12.0, Therapeutic: 5.0-15.0 [facility] Comment on above: Order Comment: Pleas e draw at specified interval PRIOR to dose. Do not hold dose to wait for level. Specimens batched twice per day, (M-F) and once per day weekendsMethod performed is a chemiluminescent microparticle immunoasssay on the [employer] i2000.The range is based on experience at [facility] and users should be aware that target concentrations vary widely depending on concomitant therapy, time post-transplant, and desired degree of immunosuppression. Performed By: #### T ACRO ####[facility] (DEFAULT)[address] [place] [address] CBC,PLATELETSon 09-05-2023 Hematocrit (Bld) [Volume fraction] 35.6 % Low 39.6-48.8 [facility] Comment on above: Performed By: #### H EMOGC ####[facility] (DEFAULT)[address] [place] [address] Hemoglobin (Bld) [Mass/Vol] 11.4 g/dL Low 13.4-16.8 [facility] Comment on above: Performed By: #### H EMOGC ####[facility] (DEFAULT)[address] [place] [address] MCV (RBC) [Entitic vol] 86.0 fL Normal 79.0-94.5 [facility] Comment on above: Performed By: #### H EMOGC ####[facility] (DEFAULT)[address] [place] [address] Mean Cell Hgb 27.5 pg Normal 26.1-33.3 [facility] Comment on above: Performed By: #### H EMOGC ####[facility] (DEFAULT)[address] [place] [address] Mean Cell Hgb Conc 32.0 g/dL Normal 31.9-36.5 [facility] Comment on above: Performed By: #### H EMOGC ####[facility] (DEFAULT)[address] [place] [address] Platelet mean volume (Bld) [Entitic vol] 10.0 fL Normal 8.7-12.3 [facility] Comment on above: Performed By: #### H EMOGC ####[facility] (DEFAULT)[address] [place] [address] Platelets (Bld) [#/Vol] 170 10*3/uL Normal 146-337 [facility] Comment on above: Performed By: #### H EMOGC ####[facility] (DEFAULT)[address] [place] [address] RBC (Bld) [#/Vol] 4.14 10*6/uL Low 4.38-5.83 [facility] Comment on above: Performed By: #### H EMO ####[facility] (DEFAULT)[address] [place] [address] RBC Distribution 13.5 % Normal 10.9-14.3 [facility] Comment on above: Performed By: #### H [facility] ####[facility] (DEFAULT)[address] [place] [address] WBC (Bld) [#/Vol] 4.24 10*3/uL Normal 3.73-10.10 [facility] Comment on above: Performed By: #### H [facility] ####[facility] (DEFAULT)[address] [place] [address] Erythrocyte distribution width (RBC) [Ratio] 13.5 % 10.9 - 14.3 % [facility] Hematocrit (Bld) [Volume fraction] 35.6 % Low 39.6 - 48.8 % [facility] Hemoglobin (Bld) [Mass/Vol] 11.4 g/dL Low 13.4 - 16.8 g/dL [facility] Interpretation and review of laboratory results Abnormal [facility] MCH (RBC) [Entitic mass] 27.5 pg 26.1 - 33.3 pg [facility] MCHC (RBC) [Mass/Vol] 32.0 g/dL 31.9 - 36.5 g/dL [facility] MCV (RBC) [Entitic vol] 86.0 fL 79.0 - 94.5 fL [facility] Platelet mean volume (Bld) [Entitic vol] 10.0 fL 8.7 - 12.3 fL [facility] Platelets (Bld) [#/Vol] 170 10*3/uL 146 - 337 K/uL [facility] RBC (Bld) [#/Vol] 4.14 10*6/uL Low U [facility] WBC (Bld) [#/Vol] 4.24 10*3/uL 3.73 - 10. 10 K/uL [facility] CHEM 7 (LYTES,BUN,CREA,GLUC) on 09-05-2023 Anion gap [Moles/Vol] 12 mmol/L Normal 7-17 [facility] Comment on above: Performed By: #### M MERLE CHM7, HFP ####[facility] (DEFAULT)[address] [facility] [place] [address] Chloride [Moles/Vol] 107 mmol/L Normal 98-108 [facility] Comment on above: Performed By: #### Rod BLOOM CHM7, HFP ####[facility] (DEFAULT)[address] [place] [address] CO2 [Moles/Vol] 20 mmol/L Low 21-31 [facility] Comment on above: Performed By: #### Rod BLOOM CHM7, HFP ####[facility] (DEFAULT)[address] [facility] [place] [address] Creatinine [Mass/Vol] 1.43 mg/dL High 0.70-1.30 [facility] Comment on above: Performed By: #### Rod BLOOM CHM7, HFP ####[facility] (DEFAULT)[address] [place] [address] GFR/1.73 sq M.predicted among non-blacks MDRD (S/P/Bld) [Vol rate/Area] 59 mL/min/{1.73_m2} Low >=60 [facility] Comment on above: Result Comment: Repo rted eGFR is based on the CKD-EPI 2020 equation using creatinine, age, and sex. Performed By: #### M MERLE CHM7, HFP ####[facility] (DEFAULT)[address] [facility] [place] [address] Glucose [Mass/Vol] 111 mg/dL High 70-99 [facility] Comment on above: Performed By: #### NATHANIEL RAMÍREZ, HFP ####[facility] (DEFAULT)[address] [place] [address] Osmolality [Osmolality] 286 mosm/kg Normal 278-305 [facility] Comment on above: Performed By: #### NATHANIEL RAMÍREZ, HFP ####[facility] (DEFAULT)[address] [place] [address] Potassium [Moles/Vol] 4.2 mmol/L Normal 3.5-5.0 [facility] Comment on above: Performed By: #### NATHANIEL RAMÍREZ, HFP ####[facility] (DEFAULT)[address] [place] [address] Sodium [Moles/Vol] 135 mmol/L Normal 135-145 [facility] Comment on above: Performed By: #### NATHANIEL RAMÍREZ, HFP ####[facility] (DEFAULT)[address] [place] [address] Urea nitrogen [Mass/Vol] 18 mg/dL Normal 7-25 [facility] Comment on above: Performed By: #### NATHANIEL RAMÍREZ, HFP ####[facility] (DEFAULT)[address] [place] [address] Urea nitrogen/Creatinine [Mass ratio] 13 mg/mg Normal [facility] Comment on above: Performed By: #### NATHANIEL RAMÍREZ, HFP ####[facility] (DEFAULT)[address] [place] [address] Anion gap [Moles/Vol] 12 mmol/L 7 - 17 mmol/L [facility] Chloride [Moles/Vol] 107 mmol/L 98 - 10 8 mmol/L [facility] CO2 [Moles/Vol] 20 mmol/L Low 21 - 31 mmol/L [facility] Creatinine [Mass/Vol] 1.43 mg/dL High 0.70 - 1.30 mg/dL [facility] eGFR, CKD-EPI, Male 60 Low - PINF [facility] Glucose [Mass/Vol] 111 mg/dL High 70 - 99 mg/dL [facility] Osmolality Calc [Osmolality] 286 [facility] Potassium [Moles/Vol] 4.2 mmol/L 3.5 - 5.0 mmol/L [facility] Sodium [Moles/Vol] 135 mmol/L 135 - 145 mmol/L [facility] Urea nitrogen [Mass/Vol] 18 mg/dL 7 - 25 mg/dL [facility] Urea nitrogen/Creatinine [Mass ratio] 13 mg/mg [facility] CONTINUOUS CARDIAC MONITORIN G STRIPon 09-05-2023 [facility] HEPATIC FUNCTION PANELon Albumin [Mass/Vol] 2.8 g/dL Low 3.5-5.0 [facility] Comment on above: Performed By: #### NATHANIEL RAMÍREZ, HFP ####[facility] (DEFAULT)[address] [place] [address] ALP [Catalytic activity/Vol] 103 U/L Normal 32-126 [facility] Comment on above: Performed By: #### NATHANIEL RAMÍREZ, HFP ####[facility] (DEFAULT)[address] [place] [address] ALT [Catalytic activity/Vol] 26 U/L Normal 10-52 [facility] Comment on above: Performed By: #### NATHANIEL RAMÍREZ, HFP ####[facility] (DEFAULT)[address] [facility] [place] [address] AST [Catalytic activity/Vol] 38 U/L Normal 10-39 [facility] Comment on above: Performed By: #### TJ RAMÍREZ7, HFP ####[facility] (DEFAULT)[address] [facility] [place] [address] Bilirubin [Mass/Vol] 0.9 mg/dL Normal <1.5 [facility] Comment on above: Performed By: #### M NATHANIEL BLOOM, HFP ####[facility] (DEFAULT)[address] [place] [address] Bilirubin.indirect [Mass/Vol] 0.1 mg/dL Normal <0.3 [facility] Comment on above: Performed By: #### M NATHANIEL BLOOM, HFP ####[facility] (DEFAULT)[address] [facility] [place] [address] Protein [Mass/Vol] 6.1 g/dL Low 6.4-8.3 [facility] Comment on above: Performed By: #### M NATHANIEL BLOOM, HFP ####[facility] (DEFAULT)[address] [facility] [place] [address] Albumin [Mass/Vol] 2.8 g/dL Low 3.5 - 5.0 g/dL [facility] ALP [Catalytic activity/Vol] 103 U/L 32 - 126 U/L [facility] ALT [Catalytic activity/Vol] 26 U/L 10 - 52 U/L [facility] AST [Catalytic activity/Vol] 38 U/L 10 - 39 U/L [facility] Bilirubin [Mass/Vol] 0.9 mg/dL [facility] - 1.5 mg/dL [facility] Bilirubin.direct [Mass/Vol] 0.1 mg/dL NINF - 0.3 mg/dL [facility] Protein [Mass/Vol] 6.1 g/dL Low 6.4 - 8.3 g/dL [facility] HISTOPLASMA ANTIGEN, FLUIDon 09-05-2023 FH SOURCE BAL RML [facility] Histo FLD interpretation Negative [facility] Histoplasma Antigen, FLUID Not detected ng/mL [facility] HISTOPLASMA CAPSULATUM/BLAST OMYCES SPECIES,PCR FLUIDon 09-05-2023 HISTO/BLASTO RESULT Negative Not Applicable [facility] Specimen source Nom (Unsp spec) BAL RML [facility] IMMUNOPHENOTYPING, TISSUE/FL UIDon 09-05-2023 BKR DX CODE Use Ordering [facility] Flow Interpretation See Comment [facility] Flow Interpreted by: Yossi Perla MD, PhD [facility] MAGNESIUMon 09-05-2023 Magnesium [Mass/Vol] 1.7 mg/dL Normal 1.6-2.6 [facility] Comment on above: Performed By: #### M GO, CHM7, HFP ####[facility] (DEFAULT)[address] [place] [address] Interpretation and review of laboratory results Normal [facility] Magnesium [Mass/Vol] 1.7 mg/dL 1.6 - 2 .6 mg/dL [facility] No Panel Informationon 09-05 Interpretation and review of laboratory results Abnormal [facility] TACROLIMUS LEVEL, TROUGH (MT E DRUG LEVEL)Ordered By: Raymundo Mehta on 09-05-2023 Interpretation and review of laboratory results Normal [facility] Tacrolimus (Bld) [Mass/Vol] 5.3 ng/mL [facility] TACROLIMUS LEVEL, TROUGH (MT E DRUG LEVEL)on 09-05-2023 Tacrolimus, Trough 5.3 ng/mL Normal Bone Susana ow Transplant: 4.0-12.0, Therapeutic: 5.0-15.0 [facility] Comment on above: Order Comment: Pleas e draw at specified interval PRIOR to dose. Do not hold dose to wait for level. Specimens batched twice per day, (M-) and once per day weekendsMethod performed is a chemiluminescent microparticle immunoasssay on the [employer] i2000.The range is based on experience at [facility] and users should be aware that target concentrations vary widely depending on concomitant therapy, time post-transplant, and desired degree of immunosuppression. Performed By: #### T ACRO ####[facility] (DEFAULT)[address] [facility] [place] [address] ARTERIAL BLOOD GAS (FULL GOSS EL)on 09-04-2023 Base Excess -1.2 mmol/L Normal -3.0-3.0 [facility] Comment on above: Performed By: #### Vale UNDERWOOD ####[facility] (DEFAULT)[address] [facility] [place] [address] Carboxyhemoglobin 0.7 % Normal <=1.[address] [facility] Comment on above: Performed By: #### Vale UNDERWOOD ####[facility] (DEFAULT)[address] [facility] [address] Glucose [Mass/Vol] 159 mg/dL High 70-99 [facility] Comment on above: Performed By: #### Vale UNDERWOOD ####[facility] (DEFAULT)[address] [place] [address] HCO3 (Bld) [Moles/Vol] 22 mmol/L Normal 22-28 [facility] Comment on above: Performed By: #### Vale UNDERWOOD ####[facility] (DEFAULT)[address] [place] [address] Hematocrit (Bld) [Volume fraction] 38.0 % Low 40.2-50.4 [facility] Comment on above: Performed By: #### Vale UNDERWOOD ####[facility] (DEFAULT)[address] [place] [address] Hemoglobin (Bld) [Mass/Vol] 12.6 g/dL Low 13.4-16.8 [facility] Comment on above: Performed By: #### Vale UNDERWOOD ####[facility] (DEFAULT)[address] [place] [address] Ionized Calcium, Whole Blood 4.79 mg/dL Normal 4.60-5.30 [facility] Comment on above: Performed By: #### Vale UNDERWOOD ####[facility] (DEFAULT)[address] [place] [address] Lactate, Whole Blood 2.0 mmol/L High 0.5-1.6 [facility] Comment on above: Performed By: #### Vale UNDERWOOD ####[facility] (DEFAULT)[address] [place] [address], [place] [address] Methemoglobin 0.0 % Normal <=1.5 [facility] Comment on above: Performed By: #### Vale UNDERWOOD ####[facility] (DEFAULT)[address] [place] [address], [place] [address] Oxyhemoglobin 91 % Low 94-98 [facility] Comment on above: Performed By: #### Vale NUDERWOOD ####[facility] (DEFAULT)[address] [place] [address], [place] [address] pCO2 30 mm Hg Low 32-48 [facility] Comment on above: Performed By: #### Vale UNDERWOOD ####[facility] (DEFAULT)[address] [place] [address], [place] [address] pH (Bld) 7.48 [pH] High 7.35-7.45 [facility] Comment on above: Performed By: #### Vale UNDERWOOD ####[facility] (DEFAULT)[address] [place] [address], [place] [address] pO2 62 mm Hg Low 83-108 [facility] Comment on above: Performed By: #### Vale UNDERWOOD ####[facility] (DEFAULT)[address] [place] [address], [place] [address] Potassium [Moles/Vol] 4.2 mmol/L Normal 3.5-5.0 [facility] Comment on above: Performed By: #### Vale UNDERWOOD ####[facility] (DEFAULT)[address] [place], [place] [address], [place] [address] sO2 92 % Low 94-98 [facility] Comment on above: Performed By: #### Vale UNDERWOOD ####[facility] (DEFAULT)[address] [place] [address] [place] [address] Sodium [Moles/Vol] 130 mmol/L Low 135-145 [facility] Comment on above: Performed By: #### G YASMINE ####[facility] (DEFAULT)[address] [place] [address] Specimen type Nom (Spec) Arterial Normal [facility] Comment on above: Performed By: #### G YASMINE ####[facility] (DEFAULT)[address] [place] [address] Base excess Calc (Bld) [Moles/Vol] -1.2000 mmol/L -3.0 - 3.0 mmol/L [facility] Calcium.ionized (Bld) [Mass/Vol] 4.79 mg/dL 4.60 - 5.30 mg/dL [facility] Carboxyhemoglobin (Bld) [Mass fraction] 0.7 % NINF - 1.5 % [facility] CO2 (Bld) [Partial pressure] 30 mm[Hg] Low [facility] Glucose [Mass/Vol] 159 mg/dL High 70 - 99 mg/dL [facility] HCO3 (Bld) [Moles/Vol] 22 mmol/L 22 - 28 mmol/L [facility] Hematocrit (Bld) [Volume fraction] 38.0 % Low 40.2 - 50.4 % [facility] Hemoglobin (Bld) [Mass/Vol] 12.6 g/dL Low 13.4 - 16.8 g/dL [facility] Interpretation and review of laboratory results Abnormal [facility] Lactate [Moles/Vol] 2.0 mmol/L High 0.5 - 1. 6 mmol/L [facility] Methemoglobin (Bld) [Mass fraction] 0.0 % NINF - 1.5 % [facility] Oxygen (Bld) [Partial pressure] 62 mm[Hg] Low [facility] Oxygen saturation in Blood 92 % Low 94 - 98 % [facility] Oxyhemoglobin 91 % Low 94 - 98 % [facility] pH (Bld) 7.48 [pH] [facility] 7.35 - [facility] Potassium [Moles/Vol] 4.2 mmol/L 3.5 - 5.0 mmol/L [facility] Sodium [Moles/Vol] 130 mmol/L Low 135 - 145 mmol/L [facility] Specimen source Nom (Unsp spec) Arterial [facility] Bacteria identified Respirat ory culture Nom (Unsp spec)on 09-04-2023 Bacteria identified Cx Nom (Unsp spec) NO GROWTH DAY 2 OF 2 [facility] Microscopic observation Other stain Nom (Unsp spec) Cytocentrifuge preparation [facility] Microscopic observation Other stain Nom (Unsp spec) Neutrophils, Rare [facility] Microscopic observation Other stain Nom (Unsp spec) Red Blood Cells Present [facility] Microscopic observation Other stain Nom (Unsp spec) No organisms seen [facility] Bacteria identified Respirat ory culture Nom (Unsp spec)Ordered By: Jose Salgado on 09-04-2023 Bacteria identified Cx Nom (Unsp spec) NO GROWTH DAY 2 OF 2 [facility] Microscopic observation Other stain Nom (Unsp spec) Cytocentrifuge preparation [facility] Microscopic observation Other stain Nom (Unsp spec) Neutrophils, Moderate [facility] Microscopic observation Other stain Nom (Unsp spec) Red Blood Cells Present [facility] Microscopic observation Other stain Nom (Unsp spec) No organisms seen [facility] CBC,PLATELETSon 09-04-2023 Hematocrit (Bld) [Volume fraction] 38.7 % Low 39.6-48.8 [facility] Comment on above: Performed By: #### H [facility] ####[facility] (DEFAULT)[address] [place] [address] Hemoglobin (Bld) [Mass/Vol] 12.3 g/dL Low 13.4-16.8 [facility] Comment on above: Performed By: #### H [facility] ####[facility] (DEFAULT)[address] [facility] [address] MCV (RBC) [Entitic vol] 87.8 fL Normal 79.0-94.5 [facility] Comment on above: Performed By: #### H EMOGC ####[facility] (DEFAULT)[address] [facility] [address] Mean Cell Hgb 27.9 pg Normal 26.1-33.3 [facility] Comment on above: Performed By: #### H EMOGC ####[facility] (DEFAULT)[address] [facility] [address] Mean Cell Hgb Conc 31.8 g/dL Low 31.9-36.5 [facility] Comment on above: Performed By: #### H EMOGC ####[facility] (DEFAULT)[address] [place] [address] Platelet mean volume (Bld) [Entitic vol] 9.8 fL Normal 8.7-12.3 [facility] Comment on above: Performed By: #### H EMOGC ####[facility] (DEFAULT)[address] [place] [address] Platelets (Bld) [#/Vol] 173 10*3/uL Normal 146-337 [facility] Comment on above: Performed By: #### H EMOGC ####[facility] (DEFAULT)[address] [place] [address] RBC (Bld) [#/Vol] 4.41 10*6/uL Normal 4.38-5.83 [facility] Comment on above: Performed By: #### H EMOGC ####[facility] (DEFAULT)[address] [place] [address] RBC Distribution 13.2 % Normal 10.9-14.3 [facility] Comment on above: Performed By: #### H EMOGC ####[facility] (DEFAULT)[address] [place] [address] WBC (Bld) [#/Vol] 4.57 10*3/uL Normal 3.73-10.10 [facility] Comment on above: Performed By: #### H [facility] ####[facility] (DEFAULT)[address] [place] [address] Erythrocyte distribution width (RBC) [Ratio] 13.2 % 10.9 - 14.3 % [facility] Hematocrit (Bld) [Volume fraction] 38.7 % Low 39.6 - 48.8 % [facility] Hemoglobin (Bld) [Mass/Vol] 12.3 g/dL Low 13.4 - 16.8 g/dL [facility] Interpretation and review of laboratory results Abnormal [facility] MCH (RBC) [Entitic mass] 27.9 pg 26.1 - 33.3 pg [facility] MCHC (RBC) [Mass/Vol] 31.8 g/dL Low 31.9 - 36.5 g/dL [facility] MCV (RBC) [Entitic vol] 87.8 fL 79.0 - 94.5 fL [facility] Platelet mean volume (Bld) [Entitic vol] 9.8 fL 8.7 - 12.3 fL [facility] Platelets (Bld) [#/Vol] 173 10*3/uL 146 - 337 K/uL [facility] RBC (Bld) [#/Vol] 4.41 10*6/uL [facility] WBC (Bld) [#/Vol] 4.57 10*3/uL 3.73 - 10. 10 K/uL [facility] CHEM 7 (LYTES,BUN,CREA,GLUC) on 09-04-2023 Anion gap [Moles/Vol] 16 mmol/L Normal 7-17 [facility] Comment on above: Performed By: #### M GO, CHM7, [facility] ####[facility] (DEFAULT)[address] [place] [address] Chloride [Moles/Vol] 104 mmol/L Normal 98-108 [facility] Comment on above: Performed By: #### NATHANIEL RAMÍREZ, HFP ####[facility] (DEFAULT)[address] [place] [address] CO2 [Moles/Vol] 18 mmol/L Low 21-31 [facility] Comment on above: Performed By: #### NATHANIEL RAMÍREZ, HFP ####[facility] (DEFAULT)[address] [facility] [place] [address] Creatinine [Mass/Vol] 1.22 mg/dL Normal 0.70-1.30 [facility] Comment on above: Performed By: #### NATHANIEL RAMÍREZ, HFP ####[facility] (DEFAULT)[address] [facility] [address] GFR/1.73 sq M.predicted among non-blacks MDRD (S/P/Bld) [Vol rate/Area] 71 mL/min/{1.73_m2} Normal >=60 [facility] Comment on above: Result Comment: Repo rted eGFR is based on the CKD-EPI 2020 equation using creatinine, age, and sex. Performed By: #### NATHANIEL RAMÍREZ, HFP ####[facility] (DEFAULT)[address] [facility] [place] [address] Glucose [Mass/Vol] 124 mg/dL High 70-99 [facility] Comment on above: Performed By: #### NATHANIEL RAMÍREZ, HFP ####[facility] (DEFAULT)[address] [facility] [place] [address] Osmolality [Osmolality] 284 mosm/kg Normal 278-305 [facility] Comment on above: Performed By: #### NATHANIEL RAMÍREZ, HFP ####[facility] (DEFAULT)[address] [place] [address] Potassium [Moles/Vol] 3.9 mmol/L Normal 3.5-5.0 [facility] Comment on above: Performed By: #### M NATHANIEL BLOOM, HFP ####[facility] (DEFAULT)[address] [place] [address] Sodium [Moles/Vol] 134 mmol/L Low 135-145 [facility] Comment on above: Performed By: #### NATHANIEL RAMÍREZ, HFP ####[facility] (DEFAULT)[address] [place] [address] Urea nitrogen [Mass/Vol] 15 mg/dL Normal 7-25 [facility] Comment on above: Performed By: #### NATHANIEL RAMÍREZ, HFP ####[facility] (DEFAULT)[address] [place] [address] Urea nitrogen/Creatinine [Mass ratio] 12 mg/mg Normal [facility] Comment on above: Performed By: #### NATHANIEL RAMÍREZ, HFP ####[facility] (DEFAULT)[address] [place] [address] Anion gap [Moles/Vol] 16 mmol/L 7 - 17 mmol/L [facility] Chloride [Moles/Vol] 104 mmol/L 98 - 10 8 mmol/L [facility] CO2 [Moles/Vol] 18 mmol/L Low 21 - 31 mmol/L [facility] Creatinine [Mass/Vol] 1.22 mg/dL 0.70 - 1.30 mg/dL [facility] eGFR, CKD-EPI, Male 72 - PINF [facility] Glucose [Mass/Vol] 124 mg/dL High 70 - 99 mg/dL [facility] Osmolality Calc [Osmolality] 284 [facility] Potassium [Moles/Vol] 3.9 mmol/L 3.5 - 5.0 mmol/L [facility] Sodium [Moles/Vol] 134 mmol/L Low 135 - 145 mmol/L [facility] Urea nitrogen [Mass/Vol] 15 mg/dL 7 - 25 mg/dL [facility] Urea nitrogen/Creatinine [Mass ratio] 12 mg/mg [facility] CMV PCR,FLUIDS,URINE,EYE ETC on 09-04-2023 Specimen source Nom (Unsp spec) BAL LLL [facility] Specimen source Nom (Unsp spec) BAL RML [facility] HEPATIC FUNCTION PANELon Albumin [Mass/Vol] 3.0 g/dL Low 3.5-5.0 [facility] Comment on above: Performed By: #### M MERLE CHM7, HFP ####[facility] (DEFAULT)[address] [place] [address] ALP [Catalytic activity/Vol] 112 U/L Normal 32-126 [facility] Comment on above: Performed By: #### M MERLE CHM7, HFP ####[facility] (DEFAULT)[address] [place] [address] ALT [Catalytic activity/Vol] 22 U/L Normal 10-52 [facility] Comment on above: Performed By: #### M MERLE CHM7, HFP ####[facility] (DEFAULT)[address] [place] [address] AST [Catalytic activity/Vol] 30 U/L Normal 10-39 [facility] Comment on above: Performed By: #### M MERLE CHM7, HFP ####[facility] (DEFAULT)[address] [place] [address] Bilirubin [Mass/Vol] 1.2 mg/dL Normal <1.5 [facility] Comment on above: Performed By: #### M GO CHM7, HFP ####[facility] (DEFAULT)[address] [place] [address] Bilirubin.indirect [Mass/Vol] 0.4 mg/dL High <0.3 [facility] Comment on above: Performed By: #### M GO CHM7, HFP ####[facility] (DEFAULT)[address] [place] [address] Protein [Mass/Vol] 6.4 g/dL Normal 6.4-8.3 [facility] Comment on above: Performed By: #### M NATHANIEL BLOOM, HFP ####[facility] (DEFAULT)[address] [place] [address] Albumin [Mass/Vol] 3.0 g/dL Low 3.5 - 5.0 g/dL [facility] ALP [Catalytic activity/Vol] 112 U/L 32 - 126 U/[facility] ALT [Catalytic activity/Vol] 22 U/L 10 - 52 U/L [facility] AST [Catalytic activity/Vol] 30 U/L 10 - 39 U/L [facility] Bilirubin [Mass/Vol] 1.2 mg/dL NINF - 1.5 mg/dL [facility] Bilirubin.direct [Mass/Vol] 0.4 mg/dL High NINF - 0.3 mg/dL [facility] Protein [Mass/Vol] 6.4 g/dL 6.4 - 8.3 g/dL [facility] LEGIONELLA PCRon 09-04-2023 Legionella sp rRNA Probe Ql (Unsp spec) Negative Not Applicable [facility] Specimen source Nom (Unsp spec) BAL RML [facility] - Microbiology an d Antimicrobial susceptibilityon 09-04-2023 CMV DNA ESTELITA+probe Ql (Unsp spec) Negative Negative [facility] MAGNESIUMon 09-04-2023 Magnesium [Mass/Vol] 1.4 mg/dL Low 1.6-2.6 [facility] Comment on above: Performed By: #### M NATHANIEL BLOOM, HFP ####[facility] (DEFAULT)[address] [place] [address] Magnesium [Mass/Vol] 1.4 mg/dL Low 1.6 - 2 .6 mg/dL [facility] No Panel Informationon 09-04 Annotation comment [Interpretation] Narrative DNR [facility] PN Report Status DNR [facility] Pneumocystis jiroveci,PCR result Negative Not Applicable [facility] Interpretation and review of laboratory results Abnormal [facility] PNEUMOCYSTIS JIROVECI,PCRon 09-04-2023 Specimen source Nom (Unsp spec) BAL LLL [facility] Specimen source Nom (Unsp spec) BAL RML [facility] Portable XR Chest Viewson RADIOLOGY RADIOLOGY [facility] Radiology Study observation (narrative) [facility] Portable XR Chest ViewsOrder ed By: Joanie Nugent on 09-04-2023 [facility] Work Phone: TACROLIMUS LEVEL, TROUGH (MT E DRUG LEVEL)on 09-04-2023 Interpretation and review of laboratory results Abnormal [facility] Tacrolimus (Bld) [Mass/Vol] 3.6 ng/mL Low [facility] Tacrolimus, Trough 3.6 ng/mL Low Bone Susana ow Transplant: 4.0-12.0, Therapeutic: 5.0-15.0 [facility] Comment on above: Order Comment: Pleas e draw at specified interval PRIOR to dose. Do not hold dose to wait for level. Specimens batched twice per day, (M-F) and once per day weekendsMethod performed is a chemiluminescent microparticle immunoasssay on the [employer] i2000.The range is based on experience at [facility] and users should be aware that target concentrations vary widely depending on concomitant therapy, time post-transplant, and desired degree of immunosuppression. Performed By: #### T ACRO ####[facility] (DEFAULT)[address] [place], [place] [address] XR CHEST PORTABLEon 09-04-20 23 XR CHEST PORTABLE Normal [facility] ASPERGILLUS ANTIGEN, BALon 1 Galactomannan Ag IA Qn (Unsp spec) <0.500 NINF [facility] Galactomannan Ag IA Qn (Unsp spec) <0.500 NINF [facility] BAL CONSULTOrdered By: Noa Peralta on 09-03-2023 ALVEOLAR MACROPHAGES 32 % [facility] Work Phone: Bal comments Correlation with microbiology stains and cultures is recommended. [facility] Work Phone: Bal Diff Quik Stain Quality Check Acceptable [facility] Work Phone: BKR BAL INTERPRETATION Cellular specimen comprised of alveolar macrophages and small lymphocytes. No definitive microorganisms are observed. Moderate degenerative changes. [facility] Work Phone: BKR DX CODE Use Ordering [facility] Work Phone: Eosinophils Patterson stain Ql (Unsp spec) 0 % [facility] Work Phone: Lymphocytes/100 WBC (Bld) 57 % [facility] Work Phone: Neutrophils/100 WBC Manual cnt (Bronch spec) 11 % [facility] Work Phone: Pathologist review Jame (Unsp spec) [Interp] Leonardo Peralta MD [facility] Work Phone: [facility] Work Phone: BAL CONSULTon 09-03-2023 ALVEOLAR MACROPHAGES 33 % [facility] Bal comments Correlation with microbiology stains and cultures is recommended. Correlation with viral studies is recommended. [facility] Bal Diff Quik Stain Quality Check Acceptable [facility] BKR BAL INTERPRETATION Cellular specimen comprised of alveolar macrophages and small lymphocytes. No definitive microorganisms are observed. Rare degenerating cells with changes suggestive of viral cytopathic effect are noted. Moderate degenerative changes. [facility] BKR DX CODE Use Ordering [facility] Eosinophils Patterson stain Ql (Unsp spec) 0 % [facility] Lymphocytes/100 WBC (Bld) 49 % [facility] Neutrophils/100 WBC Manual cnt (Bronch spec) 18 % [facility] Pathologist review Jame (Unsp spec) [Interp] Leonardo Peralta MD [facility] BRONCHOSCOPYon 09-03-2023 LAB, [facility] CBC,PLATELETSon 09-03-2023 Hematocrit (Bld) [Volume fraction] 39.6 % Normal 39.6-48.8 [facility] Comment on above: Performed By: #### H EMOGC ####[facility] (DEFAULT)[address] [place] [address] Hemoglobin (Bld) [Mass/Vol] 12.8 g/dL Low 13.4-16.8 [facility] Comment on above: Performed By: #### H EMOGC ####[facility] (DEFAULT)[address] [place] [address] MCV (RBC) [Entitic vol] 85.9 fL Normal 79.0-94.5 [facility] Comment on above: Performed By: #### H EMOGC ####[facility] (DEFAULT)[address] [place] [address] Mean Cell Hgb 27.8 pg Normal 26.1-33.3 [facility] Comment on above: Performed By: #### H EMOGC ####[facility] (DEFAULT)[address] [facility] [place] [address] Mean Cell Hgb Conc 32.3 g/dL Normal 31.9-36.5 [facility] Comment on above: Performed By: #### H EMOGC ####[facility] (DEFAULT)[address] [place] [address] Platelet mean volume (Bld) [Entitic vol] 9.4 fL Normal 8.7-12.3 [facility] Comment on above: Performed By: #### H EMOGC ####[facility] (DEFAULT)[address] [place] [address] Platelets (Bld) [#/Vol] 222 10*3/uL Normal 146-337 [facility] Comment on above: Performed By: #### H [facility] ####[facility] (DEFAULT)[address] [place] [address] RBC (Bld) [#/Vol] 4.61 10*6/uL Normal 4.38-5.83 [facility] Comment on above: Performed By: #### H EMO ####[facility] (DEFAULT)[address] [place] [address] RBC Distribution 13.4 % Normal 10.9-14.3 [facility] Comment on above: Performed By: #### H EMO ####[facility] (DEFAULT)[address] [place] [address] WBC (Bld) [#/Vol] 4.36 10*3/uL Normal 3.73-10.10 [facility] Comment on above: Performed By: #### H [facility] ####[facility] (DEFAULT)[address] [place] [address] Erythrocyte distribution width (RBC) [Ratio] 13.4 % 10.9 - 14.3 % [facility] Hematocrit (Bld) [Volume fraction] 39.6 % 39.6 - 48.8 % [facility] Hemoglobin (Bld) [Mass/Vol] 12.8 g/dL Low 13.4 - 16.8 g/dL [facility] Interpretation and review of laboratory results Abnormal [facility] MCH (RBC) [Entitic mass] 27.8 pg 26.1 - 33.3 pg [facility] MCHC (RBC) [Mass/Vol] 32.3 g/dL 31.9 - 36.5 g/dL [facility] MCV (RBC) [Entitic vol] 85.9 fL 79.0 - 94.5 fL [facility] Platelet mean volume (Bld) [Entitic vol] 9.4 fL 8.7 - 12.3 fL [facility] Platelets (Bld) [#/Vol] 222 10*3/uL 146 - 337 K/uL [facility] RBC (Bld) [#/Vol] 4.61 10*6/uL [facility] WBC (Bld) [#/Vol] 4.36 10*3/uL 3.73 - 10. 10 K/uL [facility] CHEM 7 (LYTES,BUN,CREA,GLUC) on 09-03-2023 Anion gap [Moles/Vol] 12 mmol/L Normal 7-17 [facility] Comment on above: Performed By: #### NATHANIEL RAMÍREZ, HFP ####[facility] (DEFAULT)[address] [place] [address] Chloride [Moles/Vol] 104 mmol/L Normal 98-108 [facility] Comment on above: Performed By: #### NATHANIEL RAMÍREZ, HFP ####[facility] (DEFAULT)[address] [place] [address] CO2 [Moles/Vol] 24 mmol/L Normal 21-31 [facility] Comment on above: Performed By: #### NATHANIEL RAMÍREZ, HFP ####[facility] (DEFAULT)[address] [facility] [place] [address] Creatinine [Mass/Vol] 1.20 mg/dL Normal 0.70-1.30 [facility] Comment on above: Performed By: #### NATHANIEL RAMÍREZ, HFP ####[facility] (DEFAULT)[address] [place] [address] GFR/1.73 sq M.predicted among non-blacks MDRD (S/P/Bld) [Vol rate/Area] 73 mL/min/{1.73_m2} Normal >=60 [facility] Comment on above: Result Comment: Repo rted eGFR is based on the CKD-EPI 2020 equation using creatinine, age, and sex. Performed By: #### NATHANIEL RAMÍREZ, HFP ####[facility] (DEFAULT)[address] [place] [address] Glucose [Mass/Vol] 112 mg/dL High 70-99 [facility] Comment on above: Performed By: #### NATHANIEL RAMÍREZ, HFP ####[facility] (DEFAULT)[address] [place] [address] Osmolality [Osmolality] 288 mosm/kg Normal 278-305 [facility] Comment on above: Performed By: #### NATHANIEL RAMÍREZ, HFP ####[facility] (DEFAULT)[address] [place] [address] Potassium [Moles/Vol] 4.1 mmol/L Normal 3.5-5.0 [facility] Comment on above: Performed By: #### NATHANIEL RAMÍREZ, HFP ####[facility] (DEFAULT)[address] [place] [address] Sodium [Moles/Vol] 136 mmol/L Normal 135-145 [facility] Comment on above: Performed By: #### NATHANIEL RAMÍREZ, HFP ####[facility] (DEFAULT)[address] [place] [address] Urea nitrogen [Mass/Vol] 17 mg/dL Normal 7-25 [facility] Comment on above: Performed By: #### NATHANIEL RAMÍREZ, HFP ####[facility] (DEFAULT)[address] [place] [address] Urea nitrogen/Creatinine [Mass ratio] 14 mg/mg Normal [facility] Comment on above: Performed By: #### NATHANIEL RAMÍREZ, HFP ####[facility] (DEFAULT)[address] [place] [address] Anion gap [Moles/Vol] 12 mmol/L 7 - 17 mmol/L [facility] Chloride [Moles/Vol] 104 mmol/L 98 - 10 8 mmol/L [facility] CO2 [Moles/Vol] 24 mmol/L 21 - 31 mmol/L [facility] Creatinine [Mass/Vol] 1.20 mg/dL 0.70 - 1.30 mg/dL [facility] eGFR, CKD-EPI, Male 73 - PINF [facility] Glucose [Mass/Vol] 112 mg/dL High 70 - 99 mg/dL [facility] Osmolality Calc [Osmolality] 288 [facility] Potassium [Moles/Vol] 4.1 mmol/L 3.5 - 5.0 mmol/L [facility] Sodium [Moles/Vol] 136 mmol/L 135 - 145 mmol/L [facility] Urea nitrogen [Mass/Vol] 17 mg/dL 7 - 25 mg/dL [facility] Urea nitrogen/Creatinine [Mass ratio] 14 mg[facility] CYTOLOGY, NON-GYNOrdered By: Sherice Jimenez on 09-03-2023 CYTOLOGIC DIAGNOSIS i0nvuCHtIOIhaBClAGNuG8imheV wXHMvbAGtB2TszobxFPbfPK1dGU 2zhJnoxZNbsKNjZFBmSrXgd1cht 251tDZfn4ljETKVarbxxZd2p0cb ASVTnS4wj9z9jZ79JXRweC7zxCV fJBhdtwNcQTrhliLjwnGtEeq7WW Q9kLxjSvgdpJW1aZWhcUQ5XAlwb 4WnvVzfxVegOFJ3NUWnVicdKBmy zSZ7eGDhcLvuiJEcGS1zw5njgOS 4ewQrNVX7dBlszMS3gQtwjpwbx9 dviHU7qGO1QIfpdGT8AGtiWuBcF 8xjUACivN6jA51pR7jeNYTuiXku HWqxBGBhwWL7RLR9IMFnd3bvCHI anNCklQQhPvVpLYveZau9x4inDS HieN11tLGzqfJ7iUkqARzxoKV5N Z29FFekx4BiSYBcgUbvRDBcsB9x YzIzXGxldmVsbmZjbjIzXGxldmV fisMiOLdqreSqy8SewyAffHM8ZV snygOdcHT7bWjxIBPjB3H3W868K IkwnxFuugNsRaUzoiq0IEFsyWyp bGlzdGxldmVsXGxldmVsbmZjMjN wwHJ5NXghXpCsIcAlxRL9WLdrSg KjlEI7JTnngPPghBU0JKaseKP7D Ea9WLa5WMotELjiRom9ePfhdII0 CNwuoN8oGYUwM97hZfI9n5qkxQF 4hUN9QJpdcTG4KTxqCcIuZ6unQC TakK5rN27aX9fbLFUllJluXTfwZ XSooPL6YOF3JZUtw2ybEOZpgMYa qXQhYcGtOVwuGmx4j9zuKKGdiI7 7oASvenH9nBodZO64NMzee9FdIO SyoVkcTIAplL4lMuXrBIktrtVil mZjbjIzXGxldmVsamMwXGxldmVs q5GmvuMbvFR1GEftueAvjTL0sXw vCXIiL0D4X553DIjedvGuovAeVf Pcvzj2NQHqxRvtpSdouCizwjStG PrdlbYutcFlEnBshGS0DAepJrHr BmHhsGZ4CVpsNnHamVA3FDzyaFS czWP4QWyzkDO4LWj8ZFe0RUgrAD anHti8fXqhbPS5UMmofI1uKKCvR 66lKoU2i8fowXP7yGD0TOmzlEM1 IInpHoUkE1nvAVVtgS4kI27bZ0x wVITzuNdmJEywNUKxwWD4GDT1UK Wiy7udZKGkvDIiaMPaGvUnEDumE it2q5duOIBcqS15hNVbsjJ7qFry GD38GGigr1IhHQBchXvtGQPdmD8 mYzIzXGxldmVsbmZjbjIzXGxldm JkobFqYEbeyzSyu1KqsmCpdKF3H OjsiiJaiES2vJreDIXaI3J2I705 WFbsxyJlopGyOoFqyej8AMJtuRp cbGlzdGxldmVsXGxldmVsbmZjMj TosLK0FAkvUxDaOzPevRF3MPvlQ mCqoJB9POcplOKlpBU0GQkllTA1 ZEi8ZQu1ACkcHZfsBfc9fYemvQM 8YErzvF4xTCUjW88mZiK0oH17ZL zrgVawgD06ZKTucPJsxGJneDC7B CfmvBcchG76PKQywBBgERtaf1Mw CZLoNsN1JWU1WSWptXnixE70ZXK vrNHeM052hhLbZTpjUW90NBUpeG MxbtVuMqMpTXKmdGZglFW6VYWaL D9romvpTXvvVPveETFjtuJ1BUPw bNTzG9EcITFxLR3iwqjoVPA4YWg hNNFfFFO0WwJeMAMxk3Uzxbh8Eb LimRp1y4huRCZrPYAotEjxm8llW DV4OOHqbEKaC4ohkA9qJITqRS5h smodf3qqVIjrDCrtGROvoMM7zcV 1XTLfmAKhU5PrcA3zIJTaGOIsty BrwSbdwM1rMbbbvpJnAAKdHDBLG iYAQh3UR4aZWRoVWH4TBLTjXBCM ZHwRUYYVZYPFVFyNQ7NIXXqZLsV aRTIxHKEjS1zGC1rCB6epVsnrTf PjUItaLTVmXjBdQ6SbBZIsamqoL OMoFVUDIL9XCQVMURXOTr7BZUL1 AFNjpvtnfMH0RCxcegCvcDm9qVZ hmKhjqX0pWigbmuOyXNYhAOSSzb KEWEjdS65qlzFcD7KgyGFpTWCgV TagST77nRGgJIHddNAgFIm5wW9s VRasfOibeaHQcMNwhF0rpvvgDOn jZjBccGFyXGxpMFxsczBccGFyfQ == [facility] Work Phone: Case Report [facility] Work Phone: Clinical History a5vfoCIgJTOsuQWrGSGx P7pucbK lBGCezCJrE6VbklgaZZceVO2aGN 3beGhcfQTekWXoVOJnNaZul9hln 483xNMhc4yzUUOCrajgvCd8nCqy G65ki2J5IcdrR0heDKHpQOarUHP yBJgzwNHrFHl7KLLeiEHldpSyYt JhQNNnhVHxvIT3HCDjKN0uyfzyT AsmVMlnYQXyjxY9IDMfpSVuE8Wx MVBaXL7wogczKXT2OQflGHSrYPL 2PqKxGJXra4Zxuqf7ToQnxAn8j1 ymDBPeQEUddFftc4bfLQE1FBEmx MDbU2qmoG2wMSDfIV4atygrt5zo EApiAGjoJYKhkDQ0upO8XXJsaBD tL5QxeH1fHELgOWNrntChoObjyA 5cZnMyMFxjZjEgUmVuYWwgdHJhb bNwrORbcX7oFRUrlt4= [facility] Work Phone: For Immediate Release to Patient's MyChart? Yes Yes [facility] Work Phone: Gross Description u9yvuTNqEHEeeSPtPANw D8axryC yCERquBHsT3IbhzrvPLyiLJ7iNN 9xdSrweGCglWStADZzKsHxr7tuh 112sGPfk4bdMCEHuwjygPa1nWab Y10ko4W1CfbxP47sxYBzKHC7RBH mNKJtjJPrSPZnDEM2HVUkuNQhU5 fdQDKbCR9qxxvtIAxvJStcKFPcv KL8BCOzqLQdQ0MwHUXaLSbcWXUf qiz6FqTdTo3geLRdmCekKCveGWR kXHBsYWluXGZzMjAgTExMIEJBTF pyNSSnOCBjcOHxWOz0MFXluK7bs GPpvlMqqOYorH6rfTawYVeeGJBq MHKGSXDuvSrxUQGWFFNek1GtsT3 ccGFyXHBhcmRccGFyXHBhcn0= [facility] Work Phone: [facility] Work Phone: HEPATIC FUNCTION PANELon Albumin [Mass/Vol] 3.2 g/dL Low 3.5-5.0 [facility] Comment on above: Performed By: #### M NATHANIEL BLOOM, HFP ####[facility] (DEFAULT)[address] [place] [address] ALP [Catalytic activity/Vol] 118 U/L Normal 32-126 [facility] Comment on above: Performed By: #### M NATHANIEL BLOOM, HFP ####[facility] (DEFAULT)[address] [place] [address] ALT [Catalytic activity/Vol] 25 U/L Normal 10-52 [facility] Comment on above: Performed By: #### M TJ BLOOM7, HFP ####[facility] (DEFAULT)[address] [place] [address] AST [Catalytic activity/Vol] 32 U/L Normal 10-39 [facility] Comment on above: Performed By: #### NATHANIEL RAMÍREZ, HFP ####[facility] (DEFAULT)[address] [place] [address] Bilirubin [Mass/Vol] 1.0 mg/dL Normal <1.5 [facility] Comment on above: Performed By: #### NATHANIEL RAMÍREZ, HFP ####[facility] (DEFAULT)[address] [place] [address] Bilirubin.indirect [Mass/Vol] 0.3 mg/dL High <0.3 [facility] Comment on above: Performed By: #### NATHANIEL RAMÍREZ, HFP ####[facility] (DEFAULT)[address] [place] [address] Protein [Mass/Vol] 6.5 g/dL Normal 6.4-8.3 [facility] Comment on above: Performed By: #### NATHANIEL RAMÍREZ, HFP ####[facility] (DEFAULT)[address] [place] [address] Albumin [Mass/Vol] 3.2 g/dL Low 3.5 - 5.0 g/dL [facility] ALP [Catalytic activity/Vol] 118 U/L 32 - 126 U/L [facility] ALT [Catalytic activity/Vol] 25 U/L 10 - 52 U/L [facility] AST [Catalytic activity/Vol] 32 U/L 10 - 39 U/L [facility] Bilirubin [Mass/Vol] 1.0 mg/dL NINF - 1.5 mg/dL [facility] Bilirubin.direct [Mass/Vol] 0.3 mg/dL High NINF - 0.3 mg/dL [facility] Protein [Mass/Vol] 6.5 g/dL 6.4 - 8.3 g/dL [facility] HISTOPLASMA AND BLASTOMYCES ANTIGEN, ENZYME IMMUNOASSAY, SERMon 09-03-2023 Histoplasma/Blastomy antonia Ag Result Detected Critically abnormal Not Detected [facility] Histoplasma/Blastomy antonia Ag Value 5.3 ng/mL [facility] Interpretation and review of laboratory results Abnormal [facility] IMMUNOPHENOTYPING, TISSUE/FL UIDon 09-03-2023 BKR DX CODE Use Ordering Normal [facility] Comment on above: Order Comment: Pleas e lab add on to specimen collected yesterdayIMMUNOPHENOTYPING DIAGNOSISPATIENT NAME: GEORGE SLATER: 1970MRN: [id number]#: [id number] BY: Yossi Perla M.D,, Ph.D. [id number] TYPE: Bronchial Alveolar LavageLABORATORY INTERPRETATION:There is no [...] performance characteristicsdetermined The Flow Cytometry Laboratory at [facility]. It has notbeen cleared or approved by the FDA. This laboratory is certifiedunder the Clinical Laboratory Improvement Amendments (CLIA)as qualified to perform high complexity clinical laboratorytesting. This test is used for clinical purposes. It should notbe regarded as investigational or for research.The [facility] Flow Cytometry Laboratory lower limitof CLL MRD detection is 0.1% of the gated lymphocytes. Performed By: #### G IPP ####[facility] ([facility])[address] [place] [address] Flow Interpretation See Comment Normal [facility] Comment on above: Order Comment: Dilan moreno add on to specimen collected yesterdayIMMUNOPHENOTYPING DIAGNOSISPATIENT NAME: GEORGE SLATER: 1970MRN: [id number]#: [id number] BY: Yossi Perla M.D,, Ph.D. [id number] TYPE: Bronchial Alveolar LavageLABORATORY INTERPRETATION:There is no [...] performance characteristicsdetermined The [facility] Cyt[facility] at [facility]. It has notbeen cleared or approved by the FDA. This laboratory is certifiedunder the Clinical Laboratory Improvement Amendments (CLIA)as qualified to perform high complexity clinical laboratorytesting. This test is used for clinical purposes. It should notbe regarded as investigational or for research.The [facility] Flow Cytometry Laboratory lower limitof CLL MRD detection is 0.1% of the gated lymphocytes. Performed By: #### G IPP ####[facility] ([facility])[address] [place] [address] Flow Interpreted by: Yossi Perla MD, PhD [facility] Comment on above: Order Comment: Pleas e lab add on to specimen collected yesterdayIMMUNOPHENOTYPING DIAGNOSISPATIENT NAME: GEORGE SLATER: 1970MRN: [id number]#: [id number] BY: Yossi Perla M.D,, Ph.D. [id number] TYPE: Bronchial Alveolar LavageLABORATORY INTERPRETATION:There is no [...] performance characteristicsdetermined The Flow Cytometry Laboratory at [facility]. It has notbeen cleared or approved by the FDA. This laboratory is certifiedunder the Clinical Laboratory Improvement Amendments (CLIA)as qualified to perform high complexity clinical laboratorytesting. This test is used for clinical purposes. It should notbe regarded as investigational or for research.The [facility] Flow Cytometry Laboratory lower limitof CLL MRD detection is 0.1% of the gated lymphocytes. Performed By: #### G IPP ####[facility] (DEFAULT)[address] [place] [address] MAGNESIUMon 09-03-2023 Magnesium [Mass/Vol] 1.6 mg/dL Normal 1.6-2.6 [facility] Comment on above: Performed By: #### M , CHM7, [facility] ####[facility] (DEFAULT)[address] [address] Interpretation and review of laboratory results Normal [facility] Magnesium [Mass/Vol] 1.6 mg/dL 1.6 - 2 .6 mg/dL [facility] No Panel Informationon 09-03 Interpretation and review of laboratory results Abnormal [facility] PARVOVIRUS (B19) DNA, PCR, B LOODon 09-03-2023 PARVOVIRUS B19 BY RAPID PCR Not detected Not Detected [facility] MT SPEC SOURCE Whole Blood [facility] Portable XR Chest Viewson RADIOLOGY RADIOLOGY [facility] Radiology Study observation (narrative) [facility] Portable XR Chest ViewsOrder ed By: [place] on 09-03-2023 [facility] Work Phone: XR CHEST PORTABLEon 09-03-20 23 XR CHEST PORTABLE Normal [facility] ACID FAST CULTUREon 09-02-20 23 Bacteria identified Cx Nom (Unsp spec) NO GROWTH DAY 42 OF 42 Normal [facility] Comment on above: Performed By: #### A FB ####[facility] (DEFAULT)[address] [place] [address] Fluorochrome Stain No acid Fast Bacillus Seen Normal [facility] Comment on above: Performed By: #### A FB ####[facility] (DEFAULT)[address] [place] [address] Bacteria identified Cx Nom (Unsp spec) NO GROWTH DAY 42 OF 42 Normal [facility] Comment on above: Order Comment: BAL A FB culture. Clinical suspicion for non-tuberculous mycobacteria Performed By: #### A FB ####[facility] (DEFAULT)[address] [place] [address] Fluorochrome Stain No acid Fast Bacillus Seen Normal [facility] Comment on above: Order Comment: BAL A FB culture. Clinical suspicion for non-tuberculous mycobacteria Performed By: #### A FB ####[facility] (DEFAULT)[address] [place] [address] ASPERGILLUS (GALACTOMANNAN), ANTIGENon 09-02-2023 Galactomannan Ag IA Qn <0.500 NINF [facility] ASPERGILLUS ANTIGEN, BALon 1 Aspergillus Galactomannan Antigen, BAL <0.500 Normal <0.5 [facility] Comment on above: Result Comment: ---- ADDITIONAL INFORMATION This is a qualitative test and the resulted index value isnot indicative of disease severity. Serial testing isrecommended for patients at high risk for invasiveaspergillosis.This assay was performed using the FDA-cleared [employer] Aspergillus Galactomannan EIA.Test Performed by:[place] [id number] Director: Rosendo Bose M.D. Ph.D.; CLIA# [id number] Performed By: #### X ASGFL ####[facility] (DEFAULT)[address] [address] Aspergillus Galactomannan Antigen, BAL <0.500 Normal <0.5 [facility] Comment on above: Order Comment: BAL a spirgillus antigen Result Comment: ---- ADDITIONAL INFORMATION This is a qualitative test and the resulted index value isnot indicative of disease severity. Serial testing isrecommended for patients at high risk for invasiveaspergillosis.This assay was performed using the FDA-cleared [employer] Aspergillus Galactomannan EIA.Test Performed by:[address] [address]Loz Director: Rosendo Bose M.D. Ph.D.; CLIA# [id number] Performed By: #### X ASGFL ####[facility] (DEFAULT)[address] [address] ATYPICAL BACTERIAL PNEUMONIA ,PCROrdered By: Shari Contreras on 09-02-2023 B. parapertussis DNA ESTELITA+probe Ql (Unsp spec) Not detected Not Detected [facility] B. pertussis DNA ESTELITA+probe Ql (Unsp spec) Not detected Not Detected [facility] C. pneumoniae DNA ESTELITA+probe Ql (Unsp spec) Not detected Not Detected [facility] Interpretation and review of laboratory results Normal [facility] M. pneumoniae DNA ESTELITA+probe Ql (Unsp spec) Not detected Not Detected [facility] ATYPICAL BACTERIAL PNEUMONIA ,PCRon 09-02-2023 Bordetella Parapertussis Not detected Normal Not Detected [facility] Comment on above: Order Comment: Viral [...] by [facility]. It has not been cleared or approved by the FDA. The laboratory is required under CLIA as qualified to perform high-complexity testing. This test is used for clinical purposes. It should not be regarded as investigational or for research. Performed By: #### A TYPNE ####[facility] (DEFAULT)[address] [place] [address] Bordetella Pertussis Not detected Normal Not Detected [facility] Comment on above: Order Comment: Viral [...] by [facility]. It has not been cleared or approved by the FDA. The laboratory is required under CLIA as qualified to perform high-complexity testing. This test is used for clinical purposes. It should not be regarded as investigational or for research. Performed By: #### A TYPNE ####[facility] (DEFAULT)[address] [address] Chlamydia Pneumoniae Not detected Normal Not Detected [facility] Comment on above: Order Comment: Viral [...] by [facility]. It has not been cleared or approved by the FDA. The laboratory is required under CLIA as qualified to perform high-complexity testing. This test is used for clinical purposes. It should not be regarded as investigational or for research. Performed By: #### A TYPNE ####[facility] (DEFAULT)[address] [place] [address] Mycoplasma Pneumoniae Not detected Normal Not Detected [facility] Comment on above: Order Comment: Viral [...] by [facility]. It has not been cleared or approved by the FDA. The laboratory is required under CLIA as qualified to perform high-complexity testing. This test is used for clinical purposes. It should not be regarded as investigational or for research. Performed By: #### A TYPNE ####[facility] (DEFAULT)[address] [place] [address] BAL CONSULTon 09-02-2023 ALVEOLAR MACROPHAGES 33 % Normal [facility] Comment on above: Order Comment: BAL c onsultIf > 15% lymphocytes - please send for flow. Performed By: #### B ALC ####[facility] (DEFAULT)[address] [place] [address] Bal comments Correlation with microbiology stains and cultures is recommended. Correlation with viral studies is recommended. Normal [facility] Comment on above: Order Comment: BAL c onsultIf > 15% lymphocytes - please send for flow. Performed By: #### B ALC ####[facility] (DEFAULT)[address] [place] [address] Bal Diff Quik Stain Quality Check Acceptable Normal [facility] Comment on above: Order Comment: BAL c onsultIf > 15% lymphocytes - please send for flow. Performed By: #### B ALC ####[facility] (DEFAULT)[address] [place] [address] Bal Reviewed By: Leonardo Peralta MD [facility] Comment on above: Order Comment: BAL c onsultIf > 15% lymphocytes - please send for flow. Performed By: #### B ALC ####[facility] (DEFAULT)[address] [place] [address], [place] [address] BKR BAL INTERPRETATION Cellular specimen comprised of alveolar macrophages and small lymphocytes. No definitive microorganisms are observed. Rare degenerating cells with changes suggestive of viral cytopathic effect are noted. Moderate degenerative changes. Normal [facility] Comment on above: Order Comment: BAL c onsultIf > 15% lymphocytes - please send for flow. Performed By: #### B ALC ####[facility] (DEFAULT)[address] [place] [address], [place] [address] BKR DX CODE Use Ordering Normal [facility] Comment on above: Order Comment: BAL c onsultIf > 15% lymphocytes - please send for flow. Performed By: #### B ALC ####[facility] (DEFAULT)[address] [place] [address], [place] [address] Eosinophils/100 WBC (Bld) 0 % Normal [facility] Comment on above: Order Comment: BAL c onsultIf > 15% lymphocytes - please send for flow. Performed By: #### B ALC ####[facility] (DEFAULT)[address] [place] [address], [place] [address] Lymphocytes/100 WBC (Bld) 49 % Normal [facility] Comment on above: Order Comment: BAL c onsultIf > 15% lymphocytes - please send for flow. Performed By: #### B ALC ####[facility] (DEFAULT)[address] [facility] [address] Neutrophils/100 WBC (Bld) 18 % Normal [facility] Comment on above: Order Comment: BAL c onsultIf > 15% lymphocytes - please send for flow. Performed By: #### B ALC ####[facility] (DEFAULT)[address] [place] [address] ALVEOLAR MACROPHAGES 32 % Normal [facility] Comment on above: Order Comment: BAL c onsult for cell differential and pathologist review. Please do flow cytometry if > 12% lymphocytes Performed By: #### B ALC ####[facility] (DEFAULT)[address] [place] [address] Bal comments Correlation with microbiology stains and cultures is recommended. Normal [facility] Comment on above: Order Comment: BAL c onsult for cell differential and pathologist review. Please do flow cytometry if > 12% lymphocytes Performed By: #### B ALC ####[facility] (DEFAULT)[address] [place] [address] Bal Diff Quik Stain Quality Check Acceptable Normal [facility] Comment on above: Order Comment: BAL c onsult for cell differential and pathologist review. Please do flow cytometry if > 12% lymphocytes Performed By: #### B ALC ####[facility] (DEFAULT)[address] [place] [address] Bal Reviewed By: Leonardo Peralta MD Normal [facility] Comment on above: Order Comment: BAL c onsult for cell differential and pathologist review. Please do flow cytometry if > 12% lymphocytes Performed By: #### B ALC ####[facility] (DEFAULT)[address] [place] [address] BKR BAL INTERPRETATION Cellular specimen comprised of alveolar macrophages and small lymphocytes. No definitive microorganisms are observed. Moderate degenerative changes. Normal [facility] Comment on above: Order Comment: BAL c onsult for cell differential and pathologist review. Please do flow cytometry if > 12% lymphocytes Performed By: #### B ALC ####[facility] (DEFAULT)[address] [place] [address] BKR DX CODE Use Ordering Normal [facility] Comment on above: Order Comment: BAL c onsult for cell differential and pathologist review. Please do flow cytometry if > 12% lymphocytes Performed By: #### B ALC ####[facility] (DEFAULT)[address] [place] [address] Eosinophils/100 WBC (Bld) 0 % Normal [facility] Comment on above: Order Comment: BAL c onsult for cell differential and pathologist review. Please do flow cytometry if > 12% lymphocytes Performed By: #### B ALC ####[facility] (DEFAULT)[address] [place] [address] Lymphocytes/100 WBC (Bld) 57 % Normal [facility] Comment on above: Order Comment: BAL c onsult for cell differential and pathologist review. Please do flow cytometry if > 12% lymphocytes Performed By: #### B ALC ####[facility] (DEFAULT)[address] [place] [address] Neutrophils/100 WBC (Bld) 11 % Normal [facility] Comment on above: Order Comment: BAL c onsult for cell differential and pathologist review. Please do flow cytometry if > 12% lymphocytes Performed By: #### B ALC ####[facility] (DEFAULT)[address] [place] [address] BRONCHOSCOPYon 09-02-2023 Radiology Study observation (narrative) [facility] Bacteria identified Cx Nom ( Bld)on 09-02-2023 Bacteria identified Cx Nom (Unsp spec) NO GROWTH DAY 5 OF 5 [facility] CBC,PLATELETSon 09-02-2023 Hematocrit (Bld) [Volume fraction] 39.9 % Normal 39.6-48.8 [facility] Comment on above: Performed By: #### H EMOGC ####[facility] (DEFAULT)[address] [place] [address] Hemoglobin (Bld) [Mass/Vol] 12.9 g/dL Low 13.4-16.8 [facility] Comment on above: Performed By: #### H EMOGC ####[facility] (DEFAULT)[address] [place] [address] MCV (RBC) [Entitic vol] 86.4 fL Normal 79.0-94.5 [facility] Comment on above: Performed By: #### H EMOGC ####[facility] (DEFAULT)[address] [facility] [place] [address] Mean Cell Hgb 27.9 pg Normal 26.1-33.3 [facility] Comment on above: Performed By: #### H EMOGC ####[facility] (DEFAULT)[address] [place] [address] Mean Cell Hgb Conc 32.3 g/dL Normal 31.9-36.5 [facility] Comment on above: Performed By: #### H EMO ####[facility] (DEFAULT)[address] [place] [address] Platelet mean volume (Bld) [Entitic vol] 9.5 fL Normal 8.7-12.3 [facility] Comment on above: Performed By: #### H EMOGC ####[facility] (DEFAULT)[address] [facility] [place] [address] Platelets (Bld) [#/Vol] 210 10*3/uL Normal 146-337 [facility] Comment on above: Performed By: #### H EMOGC ####[facility] (DEFAULT)[address] [place] [address] RBC (Bld) [#/Vol] 4.62 10*6/uL Normal 4.38-5.83 [facility] Comment on above: Performed By: #### H EMOGC ####[facility] (DEFAULT)[address] [place] [address] RBC Distribution 13.2 % Normal 10.9-14.3 [facility] Comment on above: Performed By: #### H [facility] ####[facility] (DEFAULT)[address] [place] [address] WBC (Bld) [#/Vol] 4.12 10*3/uL Normal 3.73-10.10 [facility] Comment on above: Performed By: #### H [facility] ####[facility] (DEFAULT)[address] [place] [address] Erythrocyte distribution width (RBC) [Ratio] 13.2 % 10.9 - 14.3 % [facility] Hematocrit (Bld) [Volume fraction] 39.9 % 39.6 - 48.8 % [facility] Hemoglobin (Bld) [Mass/Vol] 12.9 g/dL Low 13.4 - 16.8 g/dL [facility] Interpretation and review of laboratory results Abnormal [facility] MCH (RBC) [Entitic mass] 27.9 pg 26.1 - 33.3 pg [facility] MCHC (RBC) [Mass/Vol] 32.3 g/dL 31.9 - 36.5 g/dL [facility] MCV (RBC) [Entitic vol] 86.4 fL 79.0 - 94.5 fL [facility] Platelet mean volume (Bld) [Entitic vol] 9.5 fL 8.7 - 12.3 fL [facility] Platelets (Bld) [#/Vol] 210 10*3/uL 146 - 337 K/uL [facility] RBC (Bld) [#/Vol] 4.62 10*6/uL [facility] WBC (Bld) [#/Vol] 4.12 10*3/uL 3.73 - 10. 10 K/uL [facility] CHEM 7 (LYTES,BUN,CREA,GLUC) on 09-02-2023 Anion gap [Moles/Vol] 13 mmol/L Normal 7-17 [facility] Comment on above: Performed By: #### M MERLE, CHM7, [facility] ####[facility] (DEFAULT)[address] [place] [address] Chloride [Moles/Vol] 105 mmol/L Normal 98-108 [facility] Comment on above: Performed By: #### NATHANIEL RAMÍREZ, HFP ####[facility] (DEFAULT)[address] [place] [address] CO2 [Moles/Vol] 22 mmol/L Normal 21-31 [facility] Comment on above: Performed By: #### NATHANIEL RAMÍREZ, HFP ####[facility] (DEFAULT)[address] [place] [address] Creatinine [Mass/Vol] 1.25 mg/dL Normal 0.70-1.30 [facility] Comment on above: Performed By: #### NATHANIEL RAMÍREZ, HFP ####[facility] (DEFAULT)[address] [facility] [place] [address] GFR/1.73 sq M.predicted among non-blacks MDRD (S/P/Bld) [Vol rate/Area] 69 mL/min/{1.73_m2} Normal >=60 [facility] Comment on above: Result Comment: Repo rted eGFR is based on the CKD-EPI 2020 equation using creatinine, age, and sex. Performed By: #### NATHANIEL RAMÍREZ, HFP ####[facility] (DEFAULT)[address] [facility] [place] [address] Glucose [Mass/Vol] 105 mg/dL High 70-99 [facility] Comment on above: Performed By: #### NATHANIEL RAMÍREZ, HFP ####[facility] (DEFAULT)[address] [facility] [place] [address] Osmolality [Osmolality] 287 mosm/kg Normal 278-305 [facility] Comment on above: Performed By: #### NATHANIEL RAMÍREZ, HFP ####[facility] (DEFAULT)[address] [place] [address] Potassium [Moles/Vol] 4.3 mmol/L Normal 3.5-5.0 [facility] Comment on above: Performed By: #### NATHANIEL RAMÍREZ, HFP ####[facility] (DEFAULT)[address] [facility] [place] [address] Sodium [Moles/Vol] 136 mmol/L Normal 135-145 [facility] Comment on above: Performed By: #### NATHANIEL RAMÍREZ, HFP ####[facility] (DEFAULT)[address] [facility] [place] [address] Urea nitrogen [Mass/Vol] 16 mg/dL Normal 7-25 [facility] Comment on above: Performed By: #### NATHANIEL RAMÍREZ, HFP ####[facility] (DEFAULT)[address] [facility] [place] [address] Urea nitrogen/Creatinine [Mass ratio] 13 mg/mg Normal [facility] Comment on above: Performed By: #### NATHANIEL RAMÍREZ, HFP ####[facility] (DEFAULT)[address] [facility] [place] [address] Anion gap [Moles/Vol] 13 mmol/L 7 - 17 mmol/L [facility] Chloride [Moles/Vol] 105 mmol/L 98 - 10 8 mmol/L [facility] CO2 [Moles/Vol] 22 mmol/L 21 - 31 mmol/L [facility] Creatinine [Mass/Vol] 1.25 mg/dL 0.70 - 1.30 mg/dL [facility] eGFR, CKD-EPI, Male 69 - PINF [facility] Glucose [Mass/Vol] 105 mg/dL High 70 - 99 mg/dL [facility] Osmolality Calc [Osmolality] 287 [facility] Potassium [Moles/Vol] 4.3 mmol/L 3.5 - 5.0 mmol/L [facility] Sodium [Moles/Vol] 136 mmol/L 135 - 145 mmol/L [facility] Urea nitrogen [Mass/Vol] 16 mg/dL 7 - 25 mg/dL [facility] Urea nitrogen/Creatinine [Mass ratio] 13 mg/mg [facility] CMV PCR,FLUIDS,URINE,EYE ETC on 09-02-2023 CMV by PCR Result Negative Normal Negative [facility] Comment on above: Result Comment: ---- ADDITIONAL INFORMATION This test was developed and its performance characteristicsdetermined by [facility] in a manner consistent with CLIArequirements. This test has not been cleared or approved bythe U.S. Food and Drug Administration.Test Performed by:[place] [id number] Director: Rosendo Bose M.D. Ph.D.; CLIA# [id number] Performed By: #### Y CMV ####[facility] (DEFAULT)[address] [address] CMV BY PCR SOURCE BAL [facility] Normal [facility] Comment on above: Performed By: #### Y CMV ####[facility] (DEFAULT)[address] [address] CMV by PCR Result Negative Normal Negative [facility] Comment on above: Result Comment: ---- ADDITIONAL INFORMATION This test was developed and its performance characteristicsdetermined by [facility] in a manner consistent with CLIArequirements. This test has not been cleared or approved bythe U.S. Food and Drug Administration.Test Performed by:[address] [address]Xdd Director: Rosendo Bose M.D. Ph.D.; CLIA# [id number] Performed By: #### Y CMV ####[facility] (DEFAULT)[address] [address] CMV BY PCR SOURCE BAL [facility] Comment on above: Performed By: #### Y CMV ####[facility] (DEFAULT)[address] [place] [address] CYTOLOGY, NON-GYNon 09-02-20 CYTOLOGIC DIAGNOSIS Normal [facility] Comment on above: Result Comment: A. B RONCHOALVEOLAR LAVAGE, LEFT LOWER LOBE (CYTOLOGY):FINAL DIAGNOSIS:No Malignant Cells Are IdentifiedHypocellular Specimen Performed By: #### N ONGNNONFNA ####[facility] (DEFAULT)[address] [place] [address] Case Report Normal [facility] Comment on above: Result Comment: Medi abhishek Cytology Report Case: [id number] Provider: Crow Diaz MD Collected: 09/02/2023 08:38 AMOrdering Location: [facility] Received: 09/02/2023 10:44 AMPathologist: KENTON Caglepecimen: BRONCHOALVEOLAR LAVAGE, LLL BAL Performed By: #### N ONGNNONFNA ####[facility] (DEFAULT)[address] [place] [address] Clinical History Renal transplant. Normal O [facility] Comment on above: Performed By: #### N ONGNNONFNA ####[facility] (DEFAULT)[address] [place] [address] Gross Description Normal [facility] Comment on above: Result Comment: LLL BAL1 ml hazy colorless fld unfixed1 TP slide Pap stainFor Immediate Release to Patient's MyChart? Yes Performed By: #### N ONGNNONFNA ####[facility] (DEFAULT)[address] [place] [address] FUNGUS CULTUREon 09-02-2023 Bacteria identified Cx Nom (Unsp spec) Normal [facility] Comment on above: Order Comment: Ident ification was performed on the MALDI-TOF mass spectrometer Society[employer]ney[employer]. This test was developed by [facility]. It has not been cleared or approved by the FDA. The laboratory is regulated under CLIA as qualified to perform high-complexity testing. This test is used for clinical purposes. It should not be regarded as investigational or for research. Result Comment: Grow [id number] Melvin Histoplasma capsulatum Performed By: #### F UN ####[facility] (DEFAULT)[address] [place] [address] Bacteria identified Cx Nom (Unsp spec) NO GROWTH DAY 28 OF 28 Normal [facility] Comment on above: Order Comment: BAL f ungal culture Performed By: #### F UN ####[facility] (DEFAULT)[address] [place] [address] HEPATIC FUNCTION PANELon Albumin [Mass/Vol] 3.2 g/dL Low 3.5-5.0 [facility] Comment on above: Performed By: #### M GO, CHM7, HFP ####[facility] (DEFAULT)[address] [place] [address] ALP [Catalytic activity/Vol] 107 U/L Normal 32-126 [facility] Comment on above: Performed By: #### M GO, CHM7, HFP ####[facility] (DEFAULT)[address] [place] [address] ALT [Catalytic activity/Vol] 20 U/L Normal 10-52 [facility] Comment on above: Performed By: #### M GO, CHM7, HFP ####[facility] (DEFAULT)[address] [place] [address] AST [Catalytic activity/Vol] 31 U/L Normal 10-39 [facility] Comment on above: Performed By: #### M GO, CHM7, HFP ####[facility] (DEFAULT)[address] [place] [address] Bilirubin [Mass/Vol] 1.0 mg/dL Normal <1.5 [facility] Comment on above: Performed By: #### M NATHANIEL BLOOM, HFP ####[facility] (DEFAULT)[address] [place] [address] Bilirubin.indirect [Mass/Vol] 0.3 mg/dL High <0.3 [facility] Comment on above: Performed By: #### M NATHANIEL BLOOM, HFP ####[facility] (DEFAULT)[address] [place] [address] Protein [Mass/Vol] 6.6 g/dL Normal 6.4-8.3 [facility] Comment on above: Performed By: #### M NATHANIEL BLOOM, HFP ####[facility] (DEFAULT)[address] [place] [address] Albumin [Mass/Vol] 3.2 g/dL Low 3.5 - 5.0 g/dL [facility] ALP [Catalytic activity/Vol] 107 U/L 32 - 126 U/L [facility] ALT [Catalytic activity/Vol] 20 U/L 10 - 52 U/L [facility] AST [Catalytic activity/Vol] 31 U/L 10 - 39 U/L [facility] Bilirubin [Mass/Vol] 1.0 mg/dL [facility] 1.5 mg/dL [facility] Bilirubin.direct [Mass/Vol] 0.3 mg/dL High NINF - 0.3 mg/dL [facility] Protein [Mass/Vol] 6.6 g/dL 6.4 - 8.3 g/dL [facility] HISTOPLASMA ANTIGEN, FLUIDon 09-02-2023 FH SOURCE BAL RML Normal [facility] Comment on above: Performed By: #### Y FHST ####[facility] (DEFAULT)[address] [place] [address] Histo FLD interpretation Negative Normal [facility] Comment on above: Result Comment: ---- ADDITIONAL INFORMATION Reference interval: None DetectedReportable Range: Positive Results reported in ng/mL from0.20 ng/mL to 20.00 ng/mLPositive Results above 20.00 ng/mL are reported as 'Abovethe Limit of Quantification'Cross-reactions occur with Blastomyces spp., Coccidioidesspp., and Paracoccidioides brasiliensis.This test was developed and its performance characteristicsdetermined by [employer]. It has not beencleared or approved by the FDA; however, FDA clearance orapproval is not currently required for clinical use. Theresults are not intended to be used as the sole means forclinical diagnosis or patient management decisions.Test Performed by:[id number] [place] [address] Performed By: #### Y FHST ####[facility] (DEFAULT)[address] [address] Histoplasma Antigen, FLUID Not detected Normal [facility] Comment on above: Performed By: #### Y FHST ####[facility] (DEFAULT)[address] [place] [address] HISTOPLASMA ANTIGEN,URINEon 09-02-2023 H. capsulatum Ag (U) [Mass/Vol] Not detected ng/mL [facility] H. capsulatum Ag IA Ql (U) Not detected Not Detected [facility] HISTOPLASMA CAPSULATUM/BLAST OMYCES SPECIES,PCR FLUIDon 09-02-2023 HISTO/BLASTO RESULT Negative Normal Not Applicable [facility] Comment on above: Result Comment: A Ne gative result from BAL fluid does not rule out thepresence of Histoplasma capsulatum because the sensitivity from this source is suboptimal. ADDITIONAL INFORMATION This test was developed and its performance characteristicsdetermined by [facility] in a manner consistent with CLIArequirements. This test has not been cleared or approved bythe U.S. Food and Drug Administration.Test Performed by:[address] [address]Xjy Director: Rosendo Bose M.D. Ph.D.; CLIA# [id number] Performed By: #### Y HBRP ####[facility] (DEFAULT)[address] [place] [address] Source BAL RML Normal [facility] Comment on above: Performed By: #### Y HBRP ####[facility] (DEFAULT)[address] [place] [address] HIV 1 AND 2 ANTIBODIES/P24 A NTIGENOrdered By: Wilma Luque on 09-02-2023 HIV 1+2 Ab+HIV1 p24 Ag IA Ql Non-Reactive Non Reactive [facility] Interpretation and review of laboratory results Normal [facility] HIV 1 AND 2 ANTIBODIES/P24 A NTIGENon 09-02-2023 HIV-1/HIV-2 Ab With p24 Antigen Non-Reactive Normal Non Reactive [facility] Comment on above: Performed By: #### L [id number] ####[facility] (DEFAULT)[address] [place] [address] LEGIONELLA CULTUREon 023 Bacteria identified Cx Nom (Unsp spec) NO GROWTH DAY 7 OF 7 Normal [facility] Comment on above: Performed By: #### L EGN ####[facility] (DEFAULT)[address] [place] [address] Bacteria identified Cx Nom (Unsp spec) NO GROWTH DAY 7 OF 7 Normal [facility] Comment on above: Order Comment: BAL l egionella culture Performed By: #### L EGN ####[facility] (DEFAULT)[address] [place] [address] LEGIONELLA PCRon 09-02-2023 Legionella species, Culture BAL RML Normal [facility] Comment on above: Performed By: #### Y LEGRP ####[facility] (DEFAULT)[address] [place] [address] Legionella, pcr result Negative Normal Not Applicable [facility] Comment on above: Result Comment: ---- ADDITIONAL INFORMATION This test was developed and its performance characteristicsdetermined by [facility] in a manner consistent with CLIArequirements. This test has not been cleared or approved bythe U.S. Food and Drug Administration.Test Performed by:[address] Director: Rosendo Bose M.D. Ph.D.; CLIA# [id number] Performed By: #### Y LEGRP ####[facility] (DEFAULT)[address] [place] [address] LOWER RESPIRATORY CULTURE, B ACTERIALon 09-02-2023 Bacteria identified Cx Nom (Unsp spec) NO GROWTH DAY 2 OF 2 Normal [facility] Comment on above: Performed By: #### R ES ####[facility] (DEFAULT)[address] [place] [address], [place] [address] Microscopic observation Gram stain Nom (Unsp spec) Normal [facility] Comment on above: Result Comment: Cyto centrifuge preparationNeutrophils, RareRed Blood Cells PresentNo organisms seen Performed By: #### R ES ####[facility] (DEFAULT)[address] [place] [address] Bacteria identified Cx Nom (Unsp spec) NO GROWTH DAY 2 OF 2 Normal [facility] Comment on above: Order Comment: BAL b acterial respiratory culture Performed By: #### R ES ####[facility] (DEFAULT)[address] [place] [address] Microscopic observation Gram stain Nom (Unsp spec) Normal [facility] Comment on above: Order Comment: BAL b acterial respiratory culture Result Comment: Cyto centrifuge preparationNeutrophils, ModerateRed Blood Cells PresentNo organisms seen Performed By: #### R ES ####[facility] (DEFAULT)[address] [place] [address] MAGNESIUMon 09-02-2023 Magnesium [Mass/Vol] 1.7 mg/dL Normal 1.6-2.6 [facility] Comment on above: Performed By: #### M GO, CHM7, HFP ####[facility] (DEFAULT)[address] [place] [address] Interpretation and review of laboratory results Normal [facility] Magnesium [Mass/Vol] 1.7 mg/dL 1.6 - 2 .6 mg/dL [facility] No Panel Informationon 09-02 Interpretation and review of laboratory results Abnormal [facility] PNEUMOCYSTIS JIROVECI,PCRon 09-02-2023 PN Report Status DNR Normal [facility] Comment on above: Performed By: #### Y PNRP ####[facility] (DEFAULT)[address] [place] [address] PN Specimen Source BAL RML Normal [facility] Comment on above: Performed By: #### Y PNRP ####[facility] (DEFAULT)[address] [place] [address] Pneum jiroveci comment DNR Normal [facility] Comment on above: Performed By: #### Y PNRP ####[facility] (DEFAULT)[address] [place] [address], [place] [address] Pneumocystis jiroveci,PCR result Negative Normal Not Applicable [facility] Comment on above: Result Comment: ---- ADDITIONAL INFORMATION This test was developed and its performance characteristicsdetermined by [facility] in a manner consistent with CLIArequirements. This test has not been cleared or approved bythe U.S. Food and Drug Administration.Test Performed by:[address] [address]Qgx Director: Rosendo Bose M.D. Ph.D.; CLIA# [id number] Performed By: #### Y PNRP ####[facility] (DEFAULT)[address] [place] [address], [place] [address] PN Report Status DNR Normal [facility] Comment on above: Performed By: #### Y PNRP ####[facility] (DEFAULT)[address] [place] [address] PN Specimen Source BAL LLL Normal [facility] Comment on above: Performed By: #### Y PNRP ####[facility] (DEFAULT)[address] [place] [address], [place] [address] Pneum jiroveci comment DNR Normal [facility] Comment on above: Performed By: #### Y PNRP ####[facility] (DEFAULT)[address] [place] [address], [place] [address] Pneumocystis jiroveci,PCR result Negative Normal Not Applicable [facility] Comment on above: Result Comment: ---- ADDITIONAL INFORMATION This test was developed and its performance characteristicsdetermined by [facility] in a manner consistent with CLIArequirements. This test has not been cleared or approved bythe U.S. Food and Drug Administration.Test Performed by:[address] [address]Moi Director: Rosendo Bose M.D. Ph.D.; CLIA# [id number] Performed By: #### Y PNRP ####[facility] (DEFAULT)[address] [place] [address] TACROLIMUS LEVEL, TROUGH (MT E DRUG LEVEL)on 09-02-2023 Interpretation and review of laboratory results Normal [facility] Tacrolimus (Bld) [Mass/Vol] 4.2 ng/mL [facility] Tacrolimus, Trough 4.2 ng/mL Normal Bone Susana ow Transplant: 4.0-12.0, Therapeutic: 5.0-15.0 [facility] Comment on above: Order Comment: Dilan e draw at specified interval PRIOR to dose. Do not hold dose to wait for level. Specimens batched twice per day, (M-F) and once per day weekendsMethod performed is a chemiluminescent microparticle immunoasssay on the [employer] i2000.The range is based on experience at [facility] and users should be aware that target concentrations vary widely depending on concomitant therapy, time post-transplant, and desired degree of immunosuppression. Performed By: #### T ACRO ####[facility] (DEFAULT)[address] [place] [address] CBC,PLATELETSon 09-01-2023 Hematocrit (Bld) [Volume fraction] 38.9 % Low 39.6-48.8 [facility] Comment on above: Performed By: #### H [facility] ####[facility] (DEFAULT)[address] [place] [address] Hemoglobin (Bld) [Mass/Vol] 12.7 g/dL Low 13.4-16.8 [facility] Comment on above: Performed By: #### H EMOGC ####[facility] (DEFAULT)[address] [place] [address] MCV (RBC) [Entitic vol] 84.6 fL Normal 79.0-94.5 [facility] Comment on above: Performed By: #### H EMOGC ####[facility] (DEFAULT)[address] [place] [address] Mean Cell Hgb 27.6 pg Normal 26.1-33.3 [facility] Comment on above: Performed By: #### H EMOGC ####[facility] (DEFAULT)[address] [place] [address] Mean Cell Hgb Conc 32.6 g/dL Normal 31.9-36.5 [facility] Comment on above: Performed By: #### H EMO ####[facility] (DEFAULT)[address] [place] [address] Platelet mean volume (Bld) [Entitic vol] 9.4 fL Normal 8.7-12.3 [facility] Comment on above: Performed By: #### H EMOGC ####[facility] (DEFAULT)[address] [place] [address] Platelets (Bld) [#/Vol] 209 10*3/uL Normal 146-337 [facility] Comment on above: Performed By: #### H EMO ####[facility] (DEFAULT)[address] [place] [address] RBC (Bld) [#/Vol] 4.60 10*6/uL Normal 4.38-5.83 [facility] Comment on above: Performed By: #### H EMO ####[facility] (DEFAULT)[address] [place] [address] RBC Distribution 13.4 % Normal 10.9-14.3 [facility] Comment on above: Performed By: #### H EMOGC ####[facility] (DEFAULT)[address] [place] [address] WBC (Bld) [#/Vol] 4.41 10*3/uL Normal 3.73-10.10 [facility] Comment on above: Performed By: #### H EMOGC ####[facility] (DEFAULT)[address] [place] [address] Erythrocyte distribution width (RBC) [Ratio] 13.4 % 10.9 - 14.3 % [facility] Hematocrit (Bld) [Volume fraction] 38.9 % Low 39.6 - 48.8 % [facility] Hemoglobin (Bld) [Mass/Vol] 12.7 g/dL Low 13.4 - 16.8 g/dL [facility] Interpretation and review of laboratory results Abnormal [facility] MCH (RBC) [Entitic mass] 27.6 pg 26.1 - 33.3 pg [facility] MCHC (RBC) [Mass/Vol] 32.6 g/dL 31.9 - 36.5 g/dL [facility] MCV (RBC) [Entitic vol] 84.6 fL 79.0 - 94.5 fL [facility] Platelet mean volume (Bld) [Entitic vol] 9.4 fL 8.7 - 12.3 fL [facility] Platelets (Bld) [#/Vol] 209 10*3/uL 146 - 337 K/uL [facility] RBC (Bld) [#/Vol] 4.60 10*6/uL [facility] WBC (Bld) [#/Vol] 4.41 10*3/uL 3.73 - 10. 10 K/uL [facility] CHEM 7 (LYTES,BUN,CREA,GLUC) on 09-01-2023 Anion gap [Moles/Vol] 14 mmol/L Normal 7-17 [facility] Comment on above: Performed By: #### NATHANIEL RAMÍREZ, HFP ####[facility] (DEFAULT)[address] [place] [address] Chloride [Moles/Vol] 103 mmol/L Normal 98-108 [facility] Comment on above: Performed By: #### NATHANIEL RAMÍREZ, HFP ####[facility] (DEFAULT)[address] [place] [address] CO2 [Moles/Vol] 21 mmol/L Normal 21-31 [facility] Comment on above: Performed By: #### NATHANIEL RAMÍREZ, HFP ####[facility] (DEFAULT)[address] [place] [address] Creatinine [Mass/Vol] 1.16 mg/dL Normal 0.70-1.30 [facility] Comment on above: Performed By: #### NATHANIEL RAMÍREZ, HFP ####[facility] (DEFAULT)[address] [place] [address] GFR/1.73 sq M.predicted among non-blacks MDRD (S/P/Bld) [Vol rate/Area] 76 mL/min/{1.73_m2} Normal >=60 [facility] Comment on above: Result Comment: Repo rted eGFR is based on the CKD-EPI 2020 equation using creatinine, age, and sex. Performed By: #### NATHANIEL RAMÍREZ, HFP ####[facility] (DEFAULT)[address] [place] [address] Glucose [Mass/Vol] 117 mg/dL High 70-99 [facility] Comment on above: Performed By: #### NATHANIEL RAMÍREZ, HFP ####[facility] (DEFAULT)[address] [place] [address] Osmolality [Osmolality] 285 mosm/kg Normal 278-305 [facility] Comment on above: Performed By: #### NATHANIEL RAMÍREZ, HFP ####[facility] (DEFAULT)[address] [place] [address] Potassium [Moles/Vol] 4.2 mmol/L Normal 3.5-5.0 [facility] Comment on above: Performed By: #### NATHANIEL RAMÍREZ, HFP ####[facility] (DEFAULT)[address] [place] [address] Sodium [Moles/Vol] 134 mmol/L Low 135-145 [facility] Comment on above: Performed By: #### NATHANIEL RAMÍREZ, HFP ####[facility] (DEFAULT)[address] [place] [address] Urea nitrogen [Mass/Vol] 18 mg/dL Normal 7-25 [facility] Comment on above: Performed By: #### NATHANIEL RAMÍREZ, HFP ####[facility] (DEFAULT)[address] [place] [address] Urea nitrogen/Creatinine [Mass ratio] 16 mg/mg Normal [facility] Comment on above: Performed By: #### NATHANIEL RAMÍREZ, HFP ####[facility] (DEFAULT)[address] [place] [address] Anion gap [Moles/Vol] 14 mmol/L 7 - 17 mmol/L [facility] Chloride [Moles/Vol] 103 mmol/L 98 - 10 8 mmol/L [facility] CO2 [Moles/Vol] 21 mmol/L 21 - 31 mmol/L [facility] Creatinine [Mass/Vol] 1.16 mg/dL 0.70 - 1.30 mg/dL [facility] eGFR, CKD-EPI, Male 76 [facility] Glucose [Mass/Vol] 117 mg/dL High 70 - 99 mg/dL [facility] Osmolality Calc [Osmolality] 285 [facility] Potassium [Moles/Vol] 4.2 mmol/L 3.5 - 5.0 mmol/L [facility] Sodium [Moles/Vol] 134 mmol/L Low 135 - 145 mmol/L [facility] Urea nitrogen [Mass/Vol] 18 mg/dL 7 - 25 mg/dL [facility] Urea nitrogen/Creatinine [Mass ratio] 16 mg/mg [facility] CRYPTOCOCCAL ANTIGENon 09-01 Cryptococcus Antigen,Serum Negative Normal Negative [facility] Comment on above: Performed By: #### C RAG ####[facility] (DEFAULT)[address] [place] [address] Cryptococcus sp Ag Ql (S) Negative Negative [facility] Interpretation and review of laboratory results Normal [facility] HEPATIC FUNCTION PANELon Albumin [Mass/Vol] 3.3 g/dL Low 3.5-5.0 [facility] Comment on above: Performed By: #### NATHANIEL RAMÍREZ, HFP ####[facility] (DEFAULT)[address] [place] [address] ALP [Catalytic activity/Vol] 112 U/L Normal 32-126 [facility] Comment on above: Performed By: #### M MERLE CHM7, HFP ####[facility] (DEFAULT)[address] [place] [address] ALT [Catalytic activity/Vol] 21 U/L Normal 10-52 [facility] Comment on above: Performed By: #### M MERLE CHM7, HFP ####[facility] (DEFAULT)[address] [place] [address] AST [Catalytic activity/Vol] 29 U/L Normal 10-39 [facility] Comment on above: Performed By: #### M HELEN BLOOMM7, HFP ####[facility] (DEFAULT)[address] [place] [address] Bilirubin [Mass/Vol] 1.0 mg/dL Normal <1.5 [facility] Comment on above: Performed By: #### M MERLE CHM7, HFP ####[facility] (DEFAULT)[address] [place] [address] Bilirubin.indirect [Mass/Vol] 0.2 mg/dL Normal <0.3 [facility] Comment on above: Performed By: #### M MERLE CHM7, HFP ####[facility] (DEFAULT)[address] [place] [address] Protein [Mass/Vol] 6.8 g/dL Normal 6.4-8.3 [facility] Comment on above: Performed By: #### M MERLE CHM7, HFP ####[facility] (DEFAULT)[address] [place] [address] Albumin [Mass/Vol] 3.3 g/dL Low 3.5 - 5.0 g/dL [facility] ALP [Catalytic activity/Vol] 112 U/L 32 - 126 U/L [facility] ALT [Catalytic activity/Vol] 21 U/L 10 - 52 U/L [facility] AST [Catalytic activity/Vol] 29 U/L 10 - 39 U/L [facility] Bilirubin [Mass/Vol] 1.0 mg/dL NINF - 1.5 mg/dL [facility] Bilirubin.direct [Mass/Vol] 0.2 mg/dL NINF - 0.3 mg/dL [facility] Protein [Mass/Vol] 6.8 g/dL 6.4 - 8.3 g/dL [facility] L. pneumophila 1 Ag IA Ql (U )Ordered By: Carolin Miles on 09-01-2023 Interpretation and review of laboratory results Normal [facility] LEGIONELLA URINARY AGOrdered By: Carolin Miles on 09-01-2023 L. pneumophila 1 Ag IA Ql (U) Negative Negative [facility] MAGNESIUMon 09-01-2023 Magnesium [Mass/Vol] 1.6 mg/dL Normal 1.6-2.6 [facility] Comment on above: Performed By: #### M , [facility] ####[facility] (DEFAULT)[address] [place] [address] Interpretation and review of laboratory results Normal [facility] Magnesium [Mass/Vol] 1.6 mg/dL 1.6 - 2 .6 mg/dL [facility] No Panel Informationon 09-01 Interpretation and review of laboratory results Abnormal [facility] PARVOVIRUS (B19) DNA, PCR, B LOODon 09-01-2023 PARVOVIRUS B19 BY RAPID PCR Not detected Normal Not Detected [facility] Comment on above: Result Comment: The primers/probe used in this assay will detectparvovirus B19 and V9 (genotypes 1 # 3) but maynot detect parvovirus genotype 2. The majority ofcirculating Parvovirus B19 strains in the [facility] are genotype 1. Genotype 2 is not believed tocirculate widely in the [facility], but has beenassociated with similar clinical features as genotype1. Genotype 3 is most prevalent in some [facility].This test was developed and its analyticalperformance characteristics have been determinedby [facility], [place], [place].It has not been cleared or approved by the FDA. Thisassay has been validated pursuant to the CLIAregulations and is used for clinical purposes.Test Performed at:[facility] [place] [id number] Benavides M.D., Ph.D.,Director of Laboratories Performed By: #### Y PRVP ####[facility] (DEFAULT)[address] [place] [address] MT SPEC SOURCE Whole Blood Normal [facility] Comment on above: Performed By: #### Y PRVP ####[facility] (DEFAULT)[address] [address] ASPERGILLUS (GALACTOMANNAN), ANTIGENon 08-31-2023 Aspergillus Antigen <0.500 Normal <0.5 [facility] Comment on above: Result Comment: ---- ADDITIONAL INFORMATION This is a qualitative test and the resulted index value isnot indicative of disease severity. Serial testing isrecommended for patients at high risk for invasiveaspergillosis.This assay was performed using the FDA-cleared Bio-KDPOFPlatelia Aspergillus Galactomannan EIA.Test Performed by:[facility] [place] [address] [id number] Director: Rosendo Bose M.D. Ph.D.; CLIA# [id number] Performed By: #### Y ASPR ####[facility] (DEFAULT)[address] [place] [id number] CBC,PLATELETSon 08-31-2023 Hematocrit (Bld) [Volume fraction] 39.4 % Low 39.6-48.8 [facility] Comment on above: Performed By: #### [facility] ####[facility] (DEFAULT)[address] [facility] [place] [address] Hemoglobin (Bld) [Mass/Vol] 12.8 g/dL Low 13.4-16.8 [facility] Comment on above: Performed By: #### H EMOGC ####[facility] (DEFAULT)[address] [place] [address] MCV (RBC) [Entitic vol] 85.1 fL Normal 79.0-94.5 [facility] Comment on above: Performed By: #### H EMOGC ####[facility] (DEFAULT)[address] [facility] [address] Mean Cell Hgb 27.6 pg Normal 26.1-33.3 [facility] Comment on above: Performed By: #### H EMOGC ####[facility] (DEFAULT)[address] [facility] [place] [address] Mean Cell Hgb Conc 32.5 g/dL Normal 31.9-36.5 [facility] Comment on above: Performed By: #### H EMOGC ####[facility] (DEFAULT)[address] [facility] [place] [address] Platelet mean volume (Bld) [Entitic vol] 9.6 fL Normal 8.7-12.3 [facility] Comment on above: Performed By: #### H EMOGC ####[facility] (DEFAULT)[address] [facility] [place] [address] Platelets (Bld) [#/Vol] 228 10*3/uL Normal 146-337 [facility] Comment on above: Performed By: #### H EMOGC ####[facility] (DEFAULT)[address] [facility] [place] [address] RBC (Bld) [#/Vol] 4.63 10*6/uL Normal 4.38-5.83 [facility] Comment on above: Performed By: #### H EMOGC ####[facility] (DEFAULT)[address] [facility] [place] [address] RBC Distribution 13.3 % Normal 10.9-14.3 [facility] Comment on above: Performed By: #### [facility] ####[facility] (DEFAULT)[address] [place] [address] WBC (Bld) [#/Vol] 4.77 10*3/uL Normal 3.73-10.10 [facility] Comment on above: Performed By: #### H [facility] ####[facility] (DEFAULT)[address] [place] [address] Erythrocyte distribution width (RBC) [Ratio] 13.3 % 10.9 - 14.3 % [facility] Hematocrit (Bld) [Volume fraction] 39.4 % Low 39.6 - 48.8 % [facility] Hemoglobin (Bld) [Mass/Vol] 12.8 g/dL Low 13.4 - 16.8 g/dL [facility] Interpretation and review of laboratory results Abnormal [facility] MCH (RBC) [Entitic mass] 27.6 pg 26.1 - 33.3 pg [facility] MCHC (RBC) [Mass/Vol] 32.5 g/dL 31.9 - 36.5 g/dL [facility] MCV (RBC) [Entitic vol] 85.1 fL 79.0 - 94.5 fL [facility] Platelet mean volume (Bld) [Entitic vol] 9.6 fL 8.7 - 12.3 fL [facility] Platelets (Bld) [#/Vol] 228 10*3/uL 146 - 337 K/uL [facility] RBC (Bld) [#/Vol] 4.63 10*6/uL [facility] WBC (Bld) [#/Vol] 4.77 10*3/uL 3.73 - 10. 10 K/uL [facility] CHEM 7 (LYTES,BUN,CREA,GLUC) on 08-31-2023 Anion gap [Moles/Vol] 13 mmol/L Normal 7-17 [facility] Comment on above: Performed By: #### M GO, CHM7, HFP, FERIB, PROCAL ####[facility] (DEFAULT)[address] [place] [address] Chloride [Moles/Vol] 102 mmol/L Normal 98-108 [facility] Comment on above: Performed By: #### M GO, CHM7, HFP, FERIB, PROCAL ####[facility] (DEFAULT)[address] [place] [address] CO2 [Moles/Vol] 23 mmol/L Normal 21-31 [facility] Comment on above: Performed By: #### M GO, CHM7, HFP, FERIB, PROCAL ####[facility] (DEFAULT)[address] [place] [address] Creatinine [Mass/Vol] 1.37 mg/dL High 0.70-1.30 [facility] Comment on above: Performed By: #### M GO, CHM7, HFP, FERIB, PROCAL ####[facility] (DEFAULT)[address] [place] [address] GFR/1.73 sq M.predicted among non-blacks MDRD (S/P/Bld) [Vol rate/Area] 62 mL/min/{1.73_m2} Normal >=60 [facility] Comment on above: Result Comment: Repo rted eGFR is based on the CKD-EPI 2020 equation using creatinine, age, and sex. Performed By: #### M GO, CHM7, HFP, FERIB, PROCAL ####[facility] (DEFAULT)[address] [place] [address] Glucose [Mass/Vol] 112 mg/dL High 70-99 [facility] Comment on above: Performed By: #### M GO, CHM7, HFP, FERIB, PROCAL ####[facility] (DEFAULT)[address] [place] [address] Osmolality [Osmolality] 284 mosm/kg Normal 278-305 [facility] Comment on above: Performed By: #### Rod BLOOM, CHM7, HFP, FERIB, PROCAL ####[facility] (DEFAULT)[address] [place] [address] Potassium [Moles/Vol] 4.4 mmol/L Normal 3.5-5.0 [facility] Comment on above: Performed By: #### M GO, CHM7, HFP, FERIB, PROCAL ####[facility] (DEFAULT)[address] [facility] [place] [address] Sodium [Moles/Vol] 134 mmol/L Low 135-145 [facility] Comment on above: Performed By: #### Rod BLOOM, CHM7, HFP, FERIB, PROCAL ####[facility] (DEFAULT)[address] [place] [address] Urea nitrogen [Mass/Vol] 16 mg/dL Normal 7-25 [facility] Comment on above: Performed By: #### Rod BLOOM, CHM7, HFP, FERIB, PROCAL ####[facility] (DEFAULT)[address] [facility] [place] [address] Urea nitrogen/Creatinine [Mass ratio] 12 mg/mg Normal [facility] Comment on above: Performed By: #### Rod BLOOM, CHM7, HFP, FERIB, PROCAL ####[facility] (DEFAULT)[address] [facility] [address] Anion gap [Moles/Vol] 13 mmol/L 7 - 17 mmol/L [facility] Chloride [Moles/Vol] 102 mmol/L 98 - 10 8 mmol/L [facility] CO2 [Moles/Vol] 23 mmol/L 21 - 31 mmol/L [facility] Creatinine [Mass/Vol] 1.37 mg/dL High 0.70 - 1.30 mg/dL [facility] eGFR, CKD-EPI, Male 62 - PINF [facility] Glucose [Mass/Vol] 112 mg/dL High 70 - 99 mg/dL [facility] Osmolality Calc [Osmolality] 284 [facility] Potassium [Moles/Vol] 4.4 mmol/L 3.5 - 5.0 mmol/L [facility] Sodium [Moles/Vol] 134 mmol/L Low 135 - 145 mmol/L [facility] Urea nitrogen [Mass/Vol] 16 mg/dL 7 - 25 mg/dL [facility] Urea nitrogen/Creatinine [Mass ratio] 12 mg[facility]/PELVIS WITHOUT CO NTRASTon 08-31-2023 CT ABDOMEN/PELVIS WITHOUT CONTRAST Normal [facility] CT Abdomen and Pelvis WO con traston 08-31-2023 RADIOLOGY RADIOLOGY [facility] Radiology Study observation (narrative) [facility] CT Abdomen and Pelvis WO con trastOrdered By: Chavez Larkin on 08-31-2023 [facility] Work Phone: CT CHEST WITHOUT CONTRASTon 08-31-2023 CT CHEST WITHOUT CONTRAST Normal [facility] CT Chest WO contraston 08-31 RADIOLOGY RADIOLOGY [facility] Radiology Study observation (narrative) [facility] CT Chest WO contrastOrdered By: Daisha Patterson on 08-31-2023 [facility] Work Phone: FERRITINon 08-31-2023 Ferritin [Mass/Vol] 409.0 ng/mL High 10.5 - 3 07.3 ng/mL [facility] Interpretation and review of laboratory results Abnormal [facility] Ferritin [Mass/Vol] 409.0 ng/mL High 10.5-307.3 [facility] Comment on above: Performed By: #### M GO, CHM7, HFP, FERIB, PROCAL ####[facility] (DEFAULT)[address] [place] [address] HEPATIC FUNCTION PANELon Albumin [Mass/Vol] 3.3 g/dL Low 3.5-5.0 [facility] Comment on above: Performed By: #### M GO, CHM7, HFP, FERIB, PROCAL ####[facility] (DEFAULT)[address] [place] [address] ALP [Catalytic activity/Vol] 113 U/L Normal 32-126 [facility] Comment on above: Performed By: #### M GO, CHM7, HFP, FERIB, PROCAL ####[facility] (DEFAULT)[address] [place] [address] ALT [Catalytic activity/Vol] 25 U/L Normal 10-52 [facility] Comment on above: Performed By: #### M GO, CHM7, HFP, FERIB, PROCAL ####[facility] (DEFAULT)[address] [place] [address] AST [Catalytic activity/Vol] 31 U/L Normal 10-39 [facility] Comment on above: Performed By: #### M GO, CHM7, HFP, FERIB, PROCAL ####[facility] (DEFAULT)[address] [place] [address] Bilirubin [Mass/Vol] 1.1 mg/dL Normal <1.5 [facility] Comment on above: Performed By: #### M GO, CHM7, HFP, FERIB, PROCAL ####[facility] (DEFAULT)[address] [place] [address] Bilirubin.indirect [Mass/Vol] 0.3 mg/dL High <0.3 [facility] Comment on above: Performed By: #### M GO, CHM7, HFP, FERIB, PROCAL ####[facility] (DEFAULT)[address] [place] [address] Protein [Mass/Vol] 7.0 g/dL Normal 6.4-8.3 [facility] Comment on above: Performed By: #### M GO, CHM7, TAVO, CATINA, PROCAL ####[facility] (DEFAULT)[address] [place] [address] Albumin [Mass/Vol] 3.3 g/dL Low 3.5 - 5.0 g/dL [facility] ALP [Catalytic activity/Vol] 113 U/L 32 - 126 U/L [facility] ALT [Catalytic activity/Vol] 25 U/L 10 - 52 U/L [facility] AST [Catalytic activity/Vol] 31 U/L 10 - 39 U/L [facility] Bilirubin [Mass/Vol] 1.1 mg/dL NINF - 1.5 mg/dL [facility] Bilirubin.direct [Mass/Vol] 0.3 mg/dL High NINF - 0.3 mg/dL [facility] Protein [Mass/Vol] 7.0 g/dL 6.4 - 8.3 g/dL [facility] LEGIONELLA URINARY AGon 10-0 Legionella Urinary Antigen Negative Normal Negative [facility] Comment on above: Performed By: #### L EGION ####[facility] (DEFAULT)[address] [place] [address] MAGNESIUMon 08-31-2023 Magnesium [Mass/Vol] 1.7 mg/dL Normal 1.6-2.6 [facility] Comment on above: Performed By: #### M NATHANIEL BLOOM, TAVO, FERROBERT, PROCAL ####[facility] (DEFAULT)[address] [place] [address] Interpretation and review of laboratory results Normal [facility] Magnesium [Mass/Vol] 1.7 mg/dL 1.6 - 2 .6 mg/dL [facility] No Panel Informationon 08-31 Interpretation and review of laboratory results Abnormal [facility] PROCALCITONINon 08-31-2023 Interpretation and review of laboratory results Normal [facility] Procalcitonin [Mass/Vol] 0.23 ng/mL NINF - 0.50 ng/mL [facility] Procalcitonin 0.23 ng/mL Normal <0.50 [facility] Comment on above: Result Comment: Proc [...] and trend procalcitonin in various clinical settings. [email or web address] [email or web address] common cutoffs associated with bacterial infections are as follows.Respiratory tract infections: >0.25 ng/mLSepsis/septic shock: >0.5 ng/mLProcalcitonin should not be used alone as a diagnostic tool, however. All procalcitonin results should be interpreted in association with the patients clinical condition and all laboratory findings. Performed By: #### M MERLE, NATHANIEL, TAVO, ANG DOMINIQUE ####[facility] (DEFAULT)[address] [place] [address] TACROLIMUS LEVEL, TROUGH (MT E DRUG LEVEL)Ordered By: Yanira Marcum on 08-31-2023 Interpretation and review of laboratory results Normal [facility] Tacrolimus (Bld) [Mass/Vol] 5.9 ng/mL [facility] TACROLIMUS LEVEL, TROUGH (MT E DRUG LEVEL)on 08-31-2023 Tacrolimus, Trough 5.9 ng/mL Normal [facility] Susana ow Transplant: 4.0-12.0, Therapeutic: 5.0-15.0 [facility] Comment on above: Order Comment: Pleas e draw at specified interval PRIOR to dose. Do not hold dose to wait for level. Specimens batched twice per day, (M-) and once per day weekendsMethod performed is a chemiluminescent microparticle immunoasssay on the [employer] i2000.The range is based on experience at [facility] and users should be aware that target concentrations vary widely depending on concomitant therapy, time post-transplant, and desired degree of immunosuppression. Performed By: #### T ACRO ####[facility] (DEFAULT)[address] [place] [address] URINE CULTUREOrdered By: Jorge Lozano on 08-31-2023 Bacteria identified Cx Nom (Unsp spec) No Growth [facility] DARYL AURIS SCREEN BY PCRO rdered By: Mynor Alejandro on 08-30-2023 Daryl auris Screen by PCR Not detected Not Detected [facility] Interpretation and review of laboratory results Normal [facility] CBC,PLATELETSon 08-30-2023 Hematocrit (Bld) [Volume fraction] 41.3 % Normal 39.6-48.8 [facility] Comment on above: Performed By: #### H EMOGC ####[facility] (DEFAULT)[address] [place] [address] Hemoglobin (Bld) [Mass/Vol] 13.2 g/dL Low 13.4-16.8 [facility] Comment on above: Performed By: #### H EMOGC ####[facility] (DEFAULT)[address] [place] [address] MCV (RBC) [Entitic vol] 85.5 fL Normal 79.0-94.5 [facility] Comment on above: Performed By: #### H EMOGC ####[facility] (DEFAULT)[address] [place] [address] Mean Cell Hgb 27.3 pg Normal 26.1-33.3 [facility] Comment on above: Performed By: #### H EMOGC ####[facility] (DEFAULT)[address] [place] [address] Mean Cell Hgb Conc 32.0 g/dL Normal 31.9-36.5 [facility] Comment on above: Performed By: #### H EMO ####[facility] (DEFAULT)[address] [place] [address] Platelet mean volume (Bld) [Entitic vol] 9.2 fL Normal 8.7-12.3 [facility] Comment on above: Performed By: #### H EMOGC ####[facility] (DEFAULT)[address] [facility] [place] [address] Platelets (Bld) [#/Vol] 235 10*3/uL Normal 146-337 [facility] Comment on above: Performed By: #### H EMO ####[facility] (DEFAULT)[address] [place] [address] RBC (Bld) [#/Vol] 4.83 10*6/uL Normal 4.38-5.83 [facility] Comment on above: Performed By: #### H EMO ####[facility] (DEFAULT)[address] [place] [address] RBC Distribution 13.3 % Normal 10.9-14.3 [facility] Comment on above: Performed By: #### H EMOGC ####[facility] (DEFAULT)[address] [place] [address] WBC (Bld) [#/Vol] 4.96 10*3/uL Normal 3.73-10.10 [facility] Comment on above: Performed By: #### H EMOGC ####[facility] (DEFAULT)[address] [place] [address] Erythrocyte distribution width (RBC) [Ratio] 13.3 % 10.9 - 14.3 % [facility] Hematocrit (Bld) [Volume fraction] 41.3 % 39.6 - 48.8 % [facility] Hemoglobin (Bld) [Mass/Vol] 13.2 g/dL Low 13.4 - 16.8 g/dL [facility] Interpretation and review of laboratory results Abnormal [facility] MCH (RBC) [Entitic mass] 27.3 pg 26.1 - 33.3 pg [facility] MCHC (RBC) [Mass/Vol] 32.0 g/dL 31.9 - 36.5 g/dL [facility] MCV (RBC) [Entitic vol] 85.5 fL 79.0 - 94.5 fL [facility] Platelet mean volume (Bld) [Entitic vol] 9.2 fL 8.7 - 12.3 fL [facility] Platelets (Bld) [#/Vol] 235 10*3/uL 146 - 337 K/uL [facility] RBC (Bld) [#/Vol] 4.83 10*6/uL [facility] WBC (Bld) [#/Vol] 4.96 10*3/uL 3.73 - 10. 10 K/uL [facility] CHEM 7 (LYTES,BUN,CREA,GLUC) on 08-30-2023 Anion gap [Moles/Vol] 14 mmol/L Normal 7-17 [facility] Comment on above: Performed By: #### NATHANIEL RAMÍREZ, HFP ####[facility] (DEFAULT)[address] [place] [address] Chloride [Moles/Vol] 102 mmol/L Normal 98-108 [facility] Comment on above: Performed By: #### NATHANIEL RAMÍREZ, HFP ####[facility] (DEFAULT)[address] [place] [address] CO2 [Moles/Vol] 20 mmol/L Low 21-31 [facility] Comment on above: Performed By: #### NATHANIEL RAMÍREZ, HFP ####[facility] (DEFAULT)[address] [place] [address] Creatinine [Mass/Vol] 1.56 mg/dL High 0.70-1.30 [facility] Comment on above: Performed By: #### NATHANIEL RAMÍREZ, HFP ####[facility] (DEFAULT)[address] [place] [address] GFR/1.73 sq M.predicted among non-blacks MDRD (S/P/Bld) [Vol rate/Area] 53 mL/min/{1.73_m2} Low >=60 [facility] Comment on above: Result Comment: Repo rted eGFR is based on the CKD-EPI 2020 equation using creatinine, age, and sex. Performed By: #### NATHANIEL RAMÍREZ, HFP ####[facility] (DEFAULT)[address] [place] [address] Glucose [Mass/Vol] 123 mg/dL High 70-99 [facility] Comment on above: Performed By: #### NATHANIEL RAMÍREZ, HFP ####[facility] (DEFAULT)[address] [place] [address] Osmolality [Osmolality] 281 mosm/kg Normal 278-305 [facility] Comment on above: Performed By: #### NATHANIEL RAMÍREZ, HFP ####[facility] (DEFAULT)[address] [place] [address] Potassium [Moles/Vol] 4.3 mmol/L Normal 3.5-5.0 [facility] Comment on above: Performed By: #### NATHANIEL RAMÍREZ, HFP ####[facility] (DEFAULT)[address] [place] [address] Sodium [Moles/Vol] 132 mmol/L Low 135-145 [facility] Comment on above: Performed By: #### NATHANIEL RAMÍREZ, HFP ####[facility] (DEFAULT)[address] [place] [address] Urea nitrogen [Mass/Vol] 16 mg/dL Normal 7-25 [facility] Comment on above: Performed By: #### NATHANIEL RAMÍREZ, HFP ####[facility] (DEFAULT)[address] [place] [address] Urea nitrogen/Creatinine [Mass ratio] 10 mg/mg Normal [facility] Comment on above: Performed By: #### M NATHANIEL BLOOM, HFP ####[facility] (DEFAULT)[address] [place] [address] Anion gap [Moles/Vol] 14 mmol/L 7 - 17 mmol/L [facility] Chloride [Moles/Vol] 102 mmol/L 98 - 10 8 mmol/L [facility] CO2 [Moles/Vol] 20 mmol/L Low 21 - 31 mmol/L [facility] Creatinine [Mass/Vol] 1.56 mg/dL High 0.70 - 1.30 mg/dL [facility] eGFR, CKD-EPI, Male 53 Low - [facility] Glucose [Mass/Vol] 123 mg/dL High 70 - 99 mg/dL [facility] Osmolality Calc [Osmolality] 281 [facility] Potassium [Moles/Vol] 4.3 mmol/L 3.5 - 5.0 mmol/L [facility] Sodium [Moles/Vol] 132 mmol/L Low 135 - 145 mmol/L [facility] Urea nitrogen [Mass/Vol] 16 mg/dL 7 - 25 mg/dL [facility] Urea nitrogen/Creatinine [Mass ratio] 10 mg/mg [facility] EXTRA MICROon 08-30-2023 [facility] HEPATIC FUNCTION PANELon Albumin [Mass/Vol] 3.7 g/dL Normal 3.5-5.0 [facility] [facility] Comment on above: Performed By: #### M NATHANIEL BLOOM, HFP ####[facility] (DEFAULT)[address] [place] [address] ALP [Catalytic activity/Vol] 115 U/L Normal 32-126 [facility] Comment on above: Performed By: #### NATHANIEL RAMÍREZ, HFP ####[facility] (DEFAULT)[address] [place] [address] ALT [Catalytic activity/Vol] 22 U/L Normal 10-52 [facility] Comment on above: Performed By: #### NATHANEIL RAMÍREZ, HFP ####[facility] (DEFAULT)[address] [place] [address] AST [Catalytic activity/Vol] 34 U/L Normal 10-39 [facility] Comment on above: Performed By: #### NATHANIEL RAMÍREZ, HFP ####[facility] (DEFAULT)[address] [place] [address] Bilirubin [Mass/Vol] 1.2 mg/dL Normal <1.5 [facility] Comment on above: Performed By: #### NATHANIEL RAMÍREZ, HFP ####[facility] (DEFAULT)[address] [place] [address] Bilirubin.indirect [Mass/Vol] 0.3 mg/dL High <0.3 [facility] Comment on above: Performed By: #### NATHANIEL RAMÍREZ, HFP ####[facility] (DEFAULT)[address] [place] [address] Protein [Mass/Vol] 7.7 g/dL Normal 6.4-8.3 [facility] Comment on above: Performed By: #### NATHANIEL RAMÍREZ, HFP ####[facility] (DEFAULT)[address] [place] [address] Albumin [Mass/Vol] 3.7 g/dL 3.5 - 5.0 g/dL [facility] ALP [Catalytic activity/Vol] 115 U/L 32 - 126 U/L [facility] ALT [Catalytic activity/Vol] 22 U/L 10 - 52 U/L [facility] AST [Catalytic activity/Vol] 34 U/L 10 - 39 U/L [facility] Bilirubin [Mass/Vol] 1.2 mg/dL NINF - 1.5 mg/[facility] Bil[facility].direct [Mass/Vol] 0.3 mg/dL High NINF - 0.3 mg/dL [facility] Protein [Mass/Vol] 7.7 g/dL 6.4 - 8.3 g/dL [facility] MAGNESIUMon 08-30-2023 Magnesium [Mass/Vol] 1.8 mg/dL Normal 1.6-2.6 [facility] Comment on above: Performed By: #### M MERLE, CHM7, [facility] ####[facility] (DEFAULT)[address] [place] [address] Interpretation and review of laboratory results Normal [facility] Magnesium [Mass/Vol] 1.8 mg/dL 1.6 - 2 .6 mg/dL [facility] No Panel Informationon 08-30 Interpretation and review of laboratory results Abnormal [facility] CBC,PLATELETSon 08-29-2023 Hematocrit (Bld) [Volume fraction] 37.6 % Low 39.6-48.8 [facility] Comment on above: Performed By: #### H [facility] ####[facility] (DEFAULT)[address] [place] [address] Hemoglobin (Bld) [Mass/Vol] 12.2 g/dL Low 13.4-16.8 [facility] Comment on above: Performed By: #### H EMO ####[facility] (DEFAULT)[address] [place] [address] MCV (RBC) [Entitic vol] 85.1 fL Normal 79.0-94.5 [facility] Comment on above: Performed By: #### H EMOGC ####[facility] (DEFAULT)[address] [place] [address] Mean Cell Hgb 27.6 pg Normal 26.1-33.3 [facility] Comment on above: Performed By: #### H EMOGC ####[facility] (DEFAULT)[address] [place] [address] Mean Cell Hgb Conc 32.4 g/dL Normal 31.9-36.5 [facility] Comment on above: Performed By: #### H EMO ####[facility] (DEFAULT)[address] [place] [address] Platelet mean volume (Bld) [Entitic vol] 9.4 fL Normal 8.7-12.3 [facility] Comment on above: Performed By: #### H EMO ####[facility] (DEFAULT)[address] [place] [address] Platelets (Bld) [#/Vol] 233 10*3/uL Normal 146-337 [facility] Comment on above: Performed By: #### H EMO ####[facility] (DEFAULT)[address] [place] [address] RBC (Bld) [#/Vol] 4.42 10*6/uL Normal 4.38-5.83 [facility] Comment on above: Performed By: #### H EMO ####[facility] (DEFAULT)[address] [place] [address] RBC Distribution 13.4 % Normal 10.9-14.3 [facility] Comment on above: Performed By: #### H EMO ####[facility] (DEFAULT)[address] [place] [address] WBC (Bld) [#/Vol] 4.92 10*3/uL Normal 3.73-10.10 [facility] Comment on above: Performed By: #### H EMOGC ####[facility] (DEFAULT)[address] [place] [address] Erythrocyte distribution width (RBC) [Ratio] 13.4 % 10.9 - 14.3 % [facility] Hematocrit (Bld) [Volume fraction] 37.6 % Low 39.6 - 48.8 % [facility] Hemoglobin (Bld) [Mass/Vol] 12.2 g/dL Low 13.4 - 16.8 g/dL [facility] Interpretation and review of laboratory results Abnormal [facility] MCH (RBC) [Entitic mass] 27.6 pg 26.1 - 33.3 pg [facility] MCHC (RBC) [Mass/Vol] 32.4 g/dL 31.9 - 36.5 g/dL [facility] MCV (RBC) [Entitic vol] 85.1 fL 79.0 - 94.5 fL [facility] Platelet mean volume (Bld) [Entitic vol] 9.4 fL 8.7 - 12.3 fL [facility] Platelets (Bld) [#/Vol] 233 10*3/uL 146 - 337 K/uL [facility] RBC (Bld) [#/Vol] 4.42 10*6/uL [facility] WBC (Bld) [#/Vol] 4.92 10*3/uL 3.73 - 10. 10 K/uL [facility] CHEM 7 (LYTES,BUN,CREA,GLUC) on 08-29-2023 Anion gap [Moles/Vol] 13 mmol/L Normal 7-17 [facility] Comment on above: Performed By: #### H FP, GGTB, MGO, CHM7 ####[facility] (DEFAULT)[address] [place] [address] Chloride [Moles/Vol] 105 mmol/L Normal 98-108 [facility] Comment on above: Performed By: #### H FP, GGTB, MGO, CHM7 ####[facility] (DEFAULT)[address] [facility] [place] [address] CO2 [Moles/Vol] 20 mmol/L Low 21-31 [facility] Comment on above: Performed By: #### H FP, GGTB, MGO, CHM7 ####[facility] (DEFAULT)[address] [place] [address] Creatinine [Mass/Vol] 1.55 mg/dL High 0.70-1.30 [facility] Comment on above: Performed By: #### H FP, GGTB, MGO, CHM7 ####[facility] (DEFAULT)[address] [place] [address] GFR/1.73 sq M.predicted among non-blacks MDRD (S/P/Bld) [Vol rate/Area] 54 mL/min/{1.73_m2} Low >=60 [facility] Comment on above: Result Comment: Repo rted eGFR is based on the CKD-EPI 2020 equation using creatinine, age, and sex. Performed By: #### H FP, GGTB, MGO, CHM7 ####[facility] (DEFAULT)[address] [place] [address] Glucose [Mass/Vol] 108 mg/dL High 70-99 [facility] Comment on above: Performed By: #### H FP, GGTB, MGO, CHM7 ####[facility] (DEFAULT)[address] [place] [address] Osmolality [Osmolality] 283 mosm/kg Normal 278-305 [facility] Comment on above: Performed By: #### H FP, GGTB, MGO, CHM7 ####[facility] (DEFAULT)[address] [facility] [address] Potassium [Moles/Vol] 4.5 mmol/L Normal 3.5-5.0 [facility] Comment on above: Performed By: #### H FP, GGTB, MGO, CHM7 ####[facility] (DEFAULT)[address] [place] [address] Sodium [Moles/Vol] 133 mmol/L Low 135-145 [facility] Comment on above: Performed By: #### H FP, GGTB, MGO, CHM7 ####[facility] (DEFAULT)[address] [place] [address] Urea nitrogen [Mass/Vol] 19 mg/dL Normal 7-25 [facility] Comment on above: Performed By: #### H FP, GGTB, MGO, HELENM7 ####[facility] (DEFAULT)[address] [place] [address] Urea nitrogen/Creatinine [Mass ratio] 12 mg/mg Normal [facility] Comment on above: Performed By: #### H FP, GGTB, MGO, CHM7 ####[facility] (DEFAULT)[address] [place] [address] Anion gap [Moles/Vol] 13 mmol/L 7 - 17 mmol/L [facility] Chloride [Moles/Vol] 105 mmol/L 98 - 10 8 mmol/L [facility] CO2 [Moles/Vol] 20 mmol/L Low 21 - 31 mmol/L [facility] Creatinine [Mass/Vol] 1.55 mg/dL High 0.70 - 1.30 mg/dL [facility] eGFR, CKD-EPI, Male 55 Low - PINF [facility] Glucose [Mass/Vol] 108 mg/dL High 70 - 99 mg/dL [facility] Osmolality Calc [Osmolality] 283 [facility] Potassium [Moles/Vol] 4.5 mmol/L 3.5 - 5.0 mmol/L [facility] Sodium [Moles/Vol] 133 mmol/L Low 135 - 145 mmol/L [facility] Urea nitrogen [Mass/Vol] 19 mg/dL 7 - 25 mg/dL [facility] Urea nitrogen/Creatinine [Mass ratio] 12 mg/mg [facility] GGTon 08-29-2023 Gamma glutamyl transferase [Catalytic activity/Vol] 64 U/L 8 - 64 U/L [facility] Interpretation and review of laboratory results Normal [facility] Gamma glutamyl transferase [Catalytic activity/Vol] 64 U/L Normal 8-64 [facility] Comment on above: Performed By: #### H FP, GGTB, MGO, CHM7 ####[facility] (DEFAULT)[address] [place] [address] HEPATIC FUNCTION PANELon Albumin [Mass/Vol] 3.3 g/dL Low 3.5-5.0 [facility] Comment on above: Performed By: #### H FP, GGTB, MGO, CHM7 ####[facility] (DEFAULT)[address] [place] [address] ALP [Catalytic activity/Vol] 103 U/L Normal 32-126 [facility] Comment on above: Performed By: #### H FP, GGTB, MGO, CHM7 ####[facility] (DEFAULT)[address] [place] [address] ALT [Catalytic activity/Vol] 18 U/L Normal 10-52 [facility] Comment on above: Performed By: #### H FP, GGTB, MGO, CHM7 ####[facility] (DEFAULT)[address] [place] [address] AST [Catalytic activity/Vol] 27 U/L Normal 10-39 [facility] Comment on above: Performed By: #### H FP, GGTB, MGO, CHM7 ####[facility] (DEFAULT)[address] [place] [address] Bilirubin [Mass/Vol] 1.1 mg/dL Normal <1.5 [facility] Comment on above: Performed By: #### H FP, GGTB, MGO, CHM7 ####[facility] (DEFAULT)[address] [place] [address] Bilirubin.indirect [Mass/Vol] 0.3 mg/dL High <0.3 [facility] Comment on above: Performed By: #### H FP, GGTB, MGO, CHM7 ####[facility] (DEFAULT)[address] [place] [address] Protein [Mass/Vol] 6.8 g/dL Normal 6.4-8.3 [facility] Comment on above: Performed By: #### H FP, GGTB, MGO, CHM7 ####[facility] (DEFAULT)[address] [place] [address] Albumin [Mass/Vol] 3.3 g/dL Low 3.5 - 5.0 g/dL [facility] ALP [Catalytic activity/Vol] 103 U/L 32 - 126 U/L [facility] ALT [Catalytic activity/Vol] 18 U/L 10 - 52 U/L [facility] AST [Catalytic activity/Vol] 27 U/L 10 - 39 U/L [facility] Bilirubin [Mass/Vol] 1.1 mg/dL NINF - 1.5 mg/dL [facility] Bilirubin.direct [Mass/Vol] 0.3 mg/dL High NINF - 0.3 mg/dL [facility] Protein [Mass/Vol] 6.8 g/dL 6.4 - 8.3 g/dL [facility] HISTOPLASMA AND BLASTOMYCES ANTIGEN, ENZYME IMMUNOASSAY, SERMon 08-29-2023 Histoplasma/Blastomy antonia Ag Result Detected Invalid Interpretation Code Not Detected [facility] Comment on above: Result Comment: Anti gen from Histoplasma or Blastomyces (unable todifferentiate) detected. Result should be correlated withclinical presentation, exposure history, and otherdiagnostic procedures, including culture, serology,histopathology, and/or radiographic findings, to aid in thedifferentiation between histoplasmosis and blastomycosis.CRITICAL RESULT Performed By: #### H IBAG ####[facility] (DEFAULT)[address] [place] [address] Histoplasma/Blastomy antonia Ag Value 5.3 ng/mL Normal [facility] Comment on above: Result Comment: ---- ADDITIONAL INFORMATION This test was developed and its performance characteristicsdetermined by [facility] in a manner consistent with CLIArequirements. This test has not been cleared or approved bythe U.S. Food and Drug Administration.Test Performed by:[place] [id number] Director: Rosendo Bose M.D. Ph.D.; CLIA# [id number] Performed By: #### H IBAG ####[facility] (DEFAULT)[address] [place] [address], [place] [address] HISTOPLASMA ANTIGEN,URINEon 08-29-2023 HISTOPLASM AG, URINE Not detected Normal Not Detected [facility] Comment on above: Result Comment: No H istoplasma antigen detected.False negative results may occur. Repeat testing on anew specimen should be considered if clinically indicated. Performed By: #### Y HISTG ####[facility] (DEFAULT)[address] [place] [address], [place] [address] Histoplasma Ag Value Not detected Normal [facility] Comment on above: Result Comment: ---- ADDITIONAL INFORMATION This test has been modified from the leading firefighter'sinstructions. Its performance characteristics weredetermined by [facility] in a manner consistent withCLIA requirements. This test has not been cleared orapproved by the U.S. Food and Drug Administration.Test Performed by:[address] [address]Hxi Director: Rosendo Bose M.D. Ph.D.; CLIA# [id number] Performed By: #### Y HISTG ####[facility] (DEFAULT)[address] [place], [place] [address], [place] [address] MAGNESIUMon 08-29-2023 Magnesium [Mass/Vol] 1.7 mg/dL Normal 1.6-2.6 [facility] Comment on above: Performed By: #### H FP, GGTB, MGO, CHM7 ####[facility] (DEFAULT)[address] [place] [address] Interpretation and review of laboratory results Normal [facility] Magnesium [Mass/Vol] 1.7 mg/dL 1.6 - 2 .6 mg/dL [facility] No Panel Informationon 08-29 Interpretation and review of laboratory results Abnormal [facility] PT,INR,PTTon 08-29-2023 aPTT Coag (Bld) [Time] 29.3 s Normal 24.0-34.3 [facility] Comment on above: Performed By: #### P TPTT ####[facility] (DEFAULT)[address] [place] [address] INR Coag (PPP) [Relative time] 1.1 {INR} Normal 0.9-1.1 [facility] Comment on above: Performed By: #### P TPTT ####[facility] (DEFAULT)[address] [place] [address] PT Coag (PPP) [Time] 13.8 s Normal 11.9-14.2 [facility] Comment on above: Performed By: #### P TPTT ####[facility] (DEFAULT)[address] [place] [address] aPTT Coag (PPP) [Time] 29.3 s [facility] INR Coag (Bld) [Relative time] 1.1 {INR} 0.9 - 1.1 [facility] Interpretation and review of laboratory results Normal [facility] PT Coag (PPP) [Time] 13.8 s [facility] Portable XR Chest Viewson RADIOLOGY RADIOLOGY [facility] Portable XR Chest ViewsOrder ed By: Gerald Baer on 08-29-2023 [facility] Work Phone: TACROLIMUS LEVEL, TROUGH (MT E DRUG LEVEL)on 08-29-2023 Interpretation and review of laboratory results Normal [facility] Tacrolimus (Bld) [Mass/Vol] 8.9 ng/mL [facility] Tacrolimus, Trough 8.9 ng/mL Normal Bone Susana ow Transplant: 4.0-12.0, Therapeutic: 5.0-15.0 [facility] Comment on above: Order Comment: Pleas e draw at specified interval PRIOR to dose. Do not hold dose to wait for level. Specimens batched twice per day, (M-F) and once per day weekendsMethod performed is a chemiluminescent microparticle immunoasssay on the [employer] i2000.The range is based on experience at [facility] and users should be aware that target concentrations vary widely depending on concomitant therapy, time post-transplant, and desired degree of immunosuppression. Performed By: #### T ACRO ####[facility] (DEFAULT)[address] [place] [address] Tacrolimus, Trough 8.7 ng/mL Normal Bone [place] ow Transplant: 4.0-12.0, Therapeutic: 5.0-15.0 [facility] Comment on above: Order Comment: Pleas e draw at specified interval PRIOR to dose. Do not hold dose to wait for level. Specimens batched twice per day, (M-F) and once per day weekendsMethod performed is a chemiluminescent microparticle immunoasssay on the [employer] i2000.The range is based on experience at [facility] and users should be aware that target concentrations vary widely depending on concomitant therapy, time post-transplant, and desired degree of immunosuppression. Performed By: #### T ACRO ####[facility] (DEFAULT)[address] [place] [address] TACROLIMUS LEVEL, TROUGH (MT E DRUG LEVEL)Ordered By: Roxanne Louie on 08-29-2023 Interpretation and review of laboratory results Normal [facility] Tacrolimus (Bld) [Mass/Vol] 8.7 ng/mL [facility] URINALYSIS REFLEX TO CULTURE PERFORMABLEon 08-29-2023 Appearance (U) Clear Normal Clear [facility] Comment on above: Order Comment: For i ndwelling catheters, specimen collection is acceptable on catheter day 1 and 2 only. ? Performed By: #### U [id number] ####[facility] (DEFAULT)[address] [place] [address] Bacteria ABSENT Normal ABSENT [facility] Comment on above: Order Comment: For i ndwelling catheters, specimen collection is acceptable on catheter day 1 and 2 only. ? Performed By: #### U [id number] ####[facility] (DEFAULT)[address] [place] [address] Blood Urine Trace Abnormal Negative [facility] Comment on above: Order Comment: For i ndwelling catheters, specimen collection is acceptable on catheter day 1 and 2 only. ? Performed By: #### U [id number] ####[facility] (DEFAULT)[address] [place] [address] Calcium Oxalate Crystals PRESENT Normal [facility] Comment on above: Order Comment: For i ndwelling catheters, specimen collection is acceptable on catheter day 1 and 2 only. ? Performed By: #### U [id number] ####[facility] (DEFAULT)[address] [place] [address] Color (U) Yellow Normal Yellow [facility] Comment on above: Order Comment: For i ndwelling catheters, specimen collection is acceptable on catheter day 1 and 2 only. ? Performed By: #### U [id number] ####[facility] (DEFAULT)[address] [place] [address] Glucose Ql (U) Negative Normal Negative [facility] Comment on above: Order Comment: For i ndwelling catheters, specimen collection is acceptable on catheter day 1 and 2 only. ? Performed By: #### U [id number] ####[facility] (DEFAULT)[address] [place], [place] [address], [place] [address] Ketones Ql (U) Negative Normal Negative [facility] Comment on above: Order Comment: For i ndwelling catheters, specimen collection is acceptable on catheter day 1 and 2 only. ? Performed By: #### U [id number] ####[facility] (DEFAULT)[address] [place] [address] Leukocyte esterase Test strip Ql (U) Negative Normal Negative [facility] Comment on above: Order Comment: For i ndwelling catheters, specimen collection is acceptable on catheter day 1 and 2 only. ? Performed By: #### U [id number] ####[facility] (DEFAULT)[address] [place] [address] Nitrites Urine Negative Normal Negative [facility] Comment on above: Order Comment: For i ndwelling catheters, specimen collection is acceptable on catheter day 1 and 2 only. ? Performed By: #### U [id number] ####[facility] (DEFAULT)[address] [place] [address], [place] [address] pH (U) 6.0 [pH] Normal 5.0-7.0 [facility] Comment on above: Order Comment: For i ndwelling catheters, specimen collection is acceptable on catheter day 1 and 2 only. ? Performed By: #### U [id number] ####[facility] (DEFAULT)[address] [place], [place] [address], [place] [address] Protein Urine Negative Normal Negative [facility] Comment on above: Order Comment: For i ndwelling catheters, specimen collection is acceptable on catheter day 1 and 2 only. ? Performed By: #### U [id number] ####[facility] (DEFAULT)[address] [place], [place] [address], [place] [address] RBC Urine 3-5 Abnormal 0-2 [facility] Comment on above: Order Comment: For i ndwelling catheters, specimen collection is acceptable on catheter day 1 and 2 only. ? Performed By: #### U [id number] ####[facility] (DEFAULT)[address] [place] [address], [place] [address] Specific [place] Urine 1.015 Normal 1.001-1.035 [facility] Comment on above: Order Comment: For i ndwelling catheters, specimen collection is acceptable on catheter day 1 and 2 only. ? Performed By: #### U [id number] ####[facility] (DEFAULT)[address] [place] [address], [place] [address] Squamous/Epithelial Cells 0-2/hpf Normal 0-2/hpf, 3-5/hpf = 1+ [facility] Comment on above: Order Comment: For i ndwelling catheters, specimen collection is acceptable on catheter day 1 and 2 only. ? Performed By: #### U [id number] ####[facility] (DEFAULT)[address] [place] [address] Urobilinogen Urine 1.0 E.U./dL Normal 0.2 E.U/d L, 1.0 E.U/dL [facility] Comment on above: Order Comment: For i ndwelling catheters, specimen collection is acceptable on catheter day 1 and 2 only. ? Performed By: #### U [id number] ####[facility] (DEFAULT)[address] [place] [address], [place] [address] WBC Urine 0 - 5 Normal 0 - 5 [facility] Comment on above: Order Comment: For i ndwelling catheters, specimen collection is acceptable on catheter day 1 and 2 only. ? Performed By: #### U [id number] ####[facility] (DEFAULT)[address] [place] [address] URINALYSIS REFLEX TO CULTURE PERFORMABLEOrdered By: Shaji Kelly on 08-29-2023 Appearance (U) Clear Clear U [facility] Bacteria LM Ql (Urine sed) ABSENT ABSENT [facility] Calcium Oxalate Crystals PRESENT [facility] Color (U) Yellow Yellow [facility] Epithelial cells.squamous LM Ql (Urine sed) 0-2/hpf 0-2/hpf, 3-5/hpf = [facility] Glucose Test strip (U) [Mass/Vol] Negative Negative [facility] Interpretation and review of laboratory results Abnormal [facility] Ketones (U) [Mass/Vol] Negative Negative [facility] Leukocyte esterase Test strip Ql (U) Negative Negative [facility] Nitrite Ql (U) Negative Negative [facility] pH (U) 6.0 [pH] 5.0 - 7.0 [facility] Protein (U) [Mass/Vol] Negative Negative [facility] RBC (U) [#/Vol] Trace Abnormal Negative [facility] RBC LM.HPF (Urine sed) [#/Area] 3-5 Abnormal [facility] Specific gravity (U) [Rel density] 1.015 1.001 - 1.035 [facility] Urobilinogen (U) [Mass/Vol] 1.0 E.U./dL 0.2 E.U/dL, 1.0 E.U/dL [facility] WBC LM.HPF (Urine sed) [#/Area] 0 - 5 [facility] URINE CULTUREon 08-29-2023 Bacteria identified Cx Nom (U) No Growth Normal [facility] Comment on above: Order Comment: For i ndwelling catheters, specimen collection is acceptable on catheter day 1 and 2 only. Sung top vacutainer. Urine must be to the fill line to process (4mls). If minimum volume, send urine in a yellow top vacutainer tube. Performed By: #### U R ####[facility] (DEFAULT)[address] [place] [address] US RENAL TRANSPLANT SCANon 0 08-29-2023 US RENAL TRANSPLANT SCAN Normal [facility] US for transplanted kidney l imitedon 08-29-2023 RADIOLOGY RADIOLOGY [facility] Radiology Study observation (narrative) [facility] US for transplanted kidney l imitedOrdered By: Romana Matias on 08-29-2023 [facility] Work Phone: XR CHEST PORTABLEon 08-29-20 XR CHEST PORTABLE Normal [facility] BLOOD CULTUREon 08-28-2023 Bacteria identified Cx Nom (Unsp spec) NO GROWTH DAY 5 OF 5 Normal [facility] Comment on above: Order Comment: 2 Bot tles (1 Set - consists of 1 Aerobic bottle and 1 Anaerobic bottle) -1st Peripheral DrawFor syringe method draw:If able to obtain adequate sample (20 ml) inoculate anaerobic bottle firstIf inadequate sample obtained (less than 20 ml) inoculate aerobic bottle firstFor vacutainer method draw: Fill aerobic bottle first, then anaerobic Performed By: #### B LDCULT ####[facility] (DEFAULT)[address] [place] [address] Bacteria identified Cx Nom (Unsp spec) NO GROWTH DAY 5 OF 5 Normal [facility] Comment on above: Order Comment: 2 Bot tles (1 Set - consists of 1 Aerobic bottle and 1 Anaerobic bottle) -1st Peripheral DrawFor syringe method draw:If able to obtain adequate sample (20 ml) inoculate anaerobic bottle firstIf inadequate sample obtained (less than 20 ml) inoculate aerobic bottle firstFor vacutainer method draw: Fill aerobic bottle first, then anaerobic Performed By: #### B LDCULT ####[facility] (DEFAULT)[address] [place] [address] DARYL AURIS SCREEN BY PCRo n 08-28-2023 Daryl auris Screen by PCR Not detected Normal Not Detected [facility] Comment on above: Order Comment: This test was performed using a real-time PCR assay. This test was developed, and its performance characteristics determined by [facility]. It has not been cleared or approved by the FDA. The laboratory is regulated under CLIA as qualified to perform high-complexity testing. This test is used for clinical purposes. It should not be regarded as investigational or for research. Performed By: #### C ANDIDA AURIS SCREEN BY PCR ####[facility] (DEFAULT)[address] [place] [address] CBC AND ELECTRONIC DIFFon Abs Baso Auto < Normal 0.00-0.09 [facility] Comment on above: Performed By: #### L [id number] ####[facility] (DEFAULT)[address] [place] [address] Basophils/100 WBC (Bld) 0.6 % Normal [facility] Comment on above: Performed By: #### L [id number] ####[facility] (DEFAULT)[address] [place] [address] DIFF STATUS Electronic Differential Normal [facility] Comment on above: Performed By: #### L [id number] ####[facility] (DEFAULT)[address] [place] [address] Eosinophils (Bld) [#/Vol] 0.10 10*3/uL Normal 0.00-0.48 [facility] Comment on above: Performed By: #### L [id number] ####[facility] (DEFAULT)[address] [place] [address] Eosinophils/100 WBC (Bld) 2.1 % Normal [facility] Comment on above: Performed By: #### L [id number] ####[facility] (DEFAULT)[address] [place] [address] Hematocrit (Bld) [Volume fraction] 37.9 % Low 39.6-48.8 [facility] Comment on above: Performed By: #### L [id number] ####[facility] (DEFAULT)[address] [place] [address] Hemoglobin (Bld) [Mass/Vol] 12.4 g/dL Low 13.4-16.8 [facility] Comment on above: Performed By: #### L [id number] ####[facility] (DEFAULT)[address] [place] [address] Immature Grans % 0.6 % Normal [facility] Comment on above: Performed By: #### L [id number] ####[facility] (DEFAULT)[address] [place] [address] Immature Grans Absolute < Normal <=0.07 [facility] Comment on above: Performed By: #### L [id number] ####[facility] (DEFAULT)[address] [place] [address] Lymphocytes (Bld) [#/Vol] 1.76 10*3/uL Normal 0.83-3.57 [facility] Comment on above: Performed By: #### L [id number] ####[facility] (DEFAULT)[address] [place] [address] Lymphocytes/100 WBC (Bld) 37.1 % Normal [facility] Comment on above: Performed By: #### L [id number] ####[facility] (DEFAULT)[address] [place] [address] MCV (RBC) [Entitic vol] 85.0 fL Normal 79.0-94.5 [facility] Comment on above: Performed By: #### L [id number] ####[facility] (DEFAULT)[address] [place] [address] Mean Cell Hgb 27.8 pg Normal 26.1-33.3 [facility] Comment on above: Performed By: #### L [id number] ####[facility] (DEFAULT)[address] [place] [address], [place] [address] Mean Cell Hgb Conc 32.7 g/dL Normal 31.9-36.5 [facility] Comment on above: Performed By: #### L [id number] ####[facility] (DEFAULT)[address] [place] [address] Monocytes (Bld) [#/Vol] 0.66 10*3/uL Normal 0.24-0.93 [facility] Comment on above: Performed By: #### L [id number] ####[facility] (DEFAULT)[address] [place] [address] Monocytes/100 WBC (Bld) 13.9 % Normal [facility] Comment on above: Performed By: #### L [id number] ####[facility] (DEFAULT)[address] [place] [address] Nucleated RBC 0.0 /100 WBC Normal <=0.2 [facility] Comment on above: Performed By: #### L [id number] ####[facility] (DEFAULT)[address] [place] [address] Platelet mean volume (Bld) [Entitic vol] 9.3 fL Normal 8.7-12.3 [facility] Comment on above: Performed By: #### L [id number] ####[facility] (DEFAULT)[address] [facility] [place] [address] Platelets (Bld) [#/Vol] 262 10*3/uL Normal 146-337 [facility] Comment on above: Performed By: #### L [id number] ####[facility] (DEFAULT)[address] [place] [address] RBC (Bld) [#/Vol] 4.46 10*6/uL Normal 4.38-5.83 [facility] Comment on above: Performed By: #### L [id number] ####[facility] (DEFAULT)[address] [place] [address] RBC Distribution 13.4 % Normal 10.9-14.3 [facility] Comment on above: Performed By: #### L [id number] ####[facility] (DEFAULT)[address] [place] [address] Segs + Bands Auto 45.7 % Normal [facility] Comment on above: Performed By: #### L [id number] ####[facility] (DEFAULT)[address] [place] [address] Segs + Bands,Absolute Auto 2.16 K/uL Normal 1.57-6.19 [facility] Comment on above: Performed By: #### L [id number] ####[facility] (DEFAULT)[address] [place] [address] WBC (Bld) [#/Vol] 4.74 10*3/uL Normal 3.73-10.10 [facility] Comment on above: Performed By: #### L [id number] ####[facility] (DEFAULT)[address] [place] [address] Basophils (Bld) [#/Vol] K/uL 0.00 - 0.09 K/uL [facility] Basophils/100 WBC (Bld) 0.6 % [facility] Differential cell count method Nom (Bld) Electronic Differential [facility] Eosinophils (Bld) [#/Vol] 0.10 10*3/uL 0.00 - 0.48 K/uL [facility] Eosinophils/100 WBC (Bld) 2.1 % [facility] Erythrocyte distribution width (RBC) [Ratio] 13.4 % 10.9 - 14.3 % [facility] Hematocrit (Bld) [Volume fraction] 37.9 % Low 39.6 - 48.8 % [facility] Hemoglobin (Bld) [Mass/Vol] 12.4 g/dL Low 13.4 - 16.8 g/dL [facility] Immature granulocytes (Bld) [#/Vol] K/uL NINF - 0.07 K/uL [facility] Immature granulocytes/100 WBC (Bld) 0.6 % [facility] Interpretation and review of laboratory results Abnormal [facility] Lymphocytes (Bld) [#/Vol] 1.76 10*3/uL 0.83 - 3.57 K/uL [facility] Lymphocytes/100 WBC (Bld) 37.1 % [facility] MCH (RBC) [Entitic mass] 27.8 pg 26.1 - 33.3 pg [facility] MCHC (RBC) [Mass/Vol] 32.7 g/dL 31.9 - 36.5 g/dL [facility] MCV (RBC) [Entitic vol] 85.0 fL 79.0 - 94.5 fL [facility] Monocytes (Bld) [#/Vol] 0.66 10*3/uL 0.24 - 0.93 K/uL [facility] Monocytes/100 WBC (Bld) 13.9 % [facility] Neutrophils (Bld) [#/Vol] 2.16 10*3/uL 1.57 - 6.19 K/uL [facility] Nucleated RBC/100 WBC (Bld) [Ratio] 0.0 % NINF [facility] Platelet mean volume (Bld) [Entitic vol] 9.3 fL 8.7 - 12.3 fL [facility] Platelets (Bld) [#/Vol] 262 10*3/uL 146 - 337 K/uL [facility] RBC (Bld) [#/Vol] 4.46 10*6/uL [facility] Segmented neutrophils/100 WBC (Bld) 45.7 % [facility] WBC (Bld) [#/Vol] 4.74 10*3/uL 3.73 - 10. 10 K/uL [facility] CHEM 6 (LYTES, BUN CREA)on 0 08-28-2023 Anion gap [Moles/Vol] 13 mmol/L Normal 7-17 [facility] Comment on above: Performed By: #### C HM6 ####[facility] (DEFAULT)[address] [place] [address] Chloride [Moles/Vol] 103 mmol/L Normal 98-108 [facility] Comment on above: Performed By: #### C HM6 ####[facility] (DEFAULT)[address] [place] [address] CO2 [Moles/Vol] 22 mmol/L Normal 21-31 [facility] Comment on above: Performed By: #### C HM6 ####[facility] (DEFAULT)[address] [place] [address] Creatinine [Mass/Vol] 1.62 mg/dL High 0.70-1.30 [facility] Comment on above: Performed By: #### C HM6 ####[facility] (DEFAULT)[address] [place] [address] GFR/1.73 sq M.predicted among non-blacks MDRD (S/P/Bld) [Vol rate/Area] 51 mL/min/{1.73_m2} Low >=60 [facility] Comment on above: Result Comment: Repo rted eGFR is based on the CKD-EPI 2020 equation using creatinine, age, and sex. Performed By: #### C HM6 ####[facility] (DEFAULT)[address] [facility] [place] [address] Potassium [Moles/Vol] 4.3 mmol/L Normal 3.5-5.0 [facility] Comment on above: Performed By: #### C HM6 ####[facility] (DEFAULT)[address] [place] [address] Sodium [Moles/Vol] 134 mmol/L Low 135-145 [facility] Comment on above: Performed By: #### C HM6 ####[facility] (DEFAULT)[address] [facility] [address] Urea nitrogen [Mass/Vol] 22 mg/dL Normal 7-25 [facility] Comment on above: Performed By: #### C HM6 ####[facility] (DEFAULT)[address] [place] [address] Urea nitrogen/Creatinine [Mass ratio] 14 mg/mg Normal [facility] Comment on above: Performed By: #### C HM6 ####[facility] (DEFAULT)[address] [place] [address] Anion gap [Moles/Vol] 13 mmol/L 7 - 17 mmol/L [facility] Chloride [Moles/Vol] 103 mmol/L 98 - 10 8 mmol/L [facility] CO2 [Moles/Vol] 22 mmol/L 21 - 31 mmol/L [facility] Creatinine [Mass/Vol] 1.62 mg/dL High 0.70 - 1.30 mg/dL [facility] eGFR, CKD-EPI, Male 52 Low - PINF [facility] Interpretation and review of laboratory results Abnormal [facility] Potassium [Moles/Vol] 4.3 mmol/L 3.5 - 5.0 mmol/L [facility] Sodium [Moles/Vol] 134 mmol/L Low 135 - 145 mmol/L [facility] Urea nitrogen [Mass/Vol] 22 mg/dL 7 - 25 mg/dL [facility] Urea nitrogen/Creatinine [Mass ratio] 14 mg[facility] IMMUNOCOMPROMISED RESPIRATOR Y PANELon 08-28-2023 Adenovirus - Pcr Not detected Normal Not Detected [facility] Comment on above: Order Comment: Viral [...] acid assay. Performed By: #### I CRESP ####[facility] (DEFAULT)[address] [address] Bordetella Parapertussis Not detected Normal Not Detected [facility] Comment on above: Order Comment: Viral [...] acid assay. Performed By: #### I CRESP ####[facility] (DEFAULT)[address] [address] Bordetella Pertussis Not detected Normal Not Detected [facility] Comment on above: Order Comment: Viral [...] acid assay. Performed By: #### I CRESP ####[facility] (DEFAULT)[address] [place] [address] Chlamydia Pneumoniae Not detected Normal Not Detected [facility] Comment on above: Order Comment: Viral [...] assay. Performed By: #### I CRESP ####[facility] (DEFAULT)[address] [place] [address], [place] [address] Coronavirus 229E Not detected Normal Not Detected [facility] Comment on above: Order Comment: Viral [...] acid assay. Performed By: #### I CRESP ####[facility] (DEFAULT)[address] [place] [address] Coronavirus Hku1 Not detected Normal Not Detected [facility] Comment on above: Order Comment: Viral [...] acid assay. Performed By: #### I CRESP ####[facility] (DEFAULT)[address] [place] [address], [place] [address] Coronavirus Nl63 Not detected Normal Not Detected [facility] Comment on above: Order Comment: Viral [...] acid assay. Performed By: #### I CRESP ####[facility] (DEFAULT)[address] [place] [address], [place] [address] Coronavirus Oc43 Not detected Normal Not Detected [facility] Comment on above: Order Comment: Viral [...] acid assay. Performed By: #### I CRESP ####[facility] (DEFAULT)[address] [place] [address], [place] [address] Influenza A - Pcr Not detected Normal [...] acid assay. Performed By: #### I CRESP ####[facility] (DEFAULT)[address] [place] [address] Influenza B - Pcr Not detected Normal [...] acid assay. Performed By: #### I CRESP ####[facility] (DEFAULT)[address] [place] [address], [place] [address] Metapneumovirus - Pcr Not detected Normal Not Detected [facility] Comment on above: Order Comment: Viral [...] acid assay. Performed By: #### I CRESP ####[facility] (DEFAULT)[address] [place] [address] Mycoplasma Pneumoniae Not detected Normal Not Detected [facility] Comment on above: Order Comment: Viral [...] acid assay. Performed By: #### I CRESP ####[facility] (DEFAULT)[address] [place] [address] Parainfluenza 1 - Pcr Not detected Normal Not Detected [facility] Comment on above: Order Comment: Viral [...] acid assay. Performed By: #### I CRESP ####[facility] (DEFAULT)[address] [place] [address], [place] [address] Parainfluenza 2 - Pcr Not detected Normal Not Detected [facility] Comment on above: Order Comment: Viral [...] acid assay. Performed By: #### I CRESP ####[facility] (DEFAULT)[address] [place] [address] Parainfluenza 3 - Pcr Not detected Normal Not Detected [facility] Comment on above: Order Comment: Viral [...] assay. Performed By: #### I CRESP ####[facility] (DEFAULT)[address] [place] [address], [place] [address] Parainfluenza 4 - Pcr Not detected Normal Not Detected [facility] Comment on above: Order Comment: Viral [...] acid assay. Performed By: #### I CRESP ####[facility] (DEFAULT)[address] [place] [address], [place] [address] Rhinovirus/Enterovir us - PCR Not detected Normal Not Detected [facility] Comment on above: Order Comment: Viral [...] assay. Performed By: #### I CRESP ####[facility] (DEFAULT)[address] [place] [address] Rsv - Pcr Not detected Normal Not Detected [facility] Comment on above: Order Comment: Viral [...] acid assay. Performed By: #### I CRESP ####[facility] (DEFAULT)[address] [place] [address] SARS-CoV-2 (COVID-19) RNA ESTELITA+probe Ql (Unsp spec) Not detected Normal NOT DETECTED [facility] Comment on above: Order Comment: Viral [...] acid assay. Performed By: #### I CRESP ####[facility] (DEFAULT)[address] [place] [address] Portable XR Chest Viewson Radiology Study observation (narrative) [facility] Respiratory virus DNA+RNA NA A+probe Nom (Unsp spec)Ordered By: Dayami Harris on 08-28-2023 Adenovirus DNA ESTELITA+probe Nom (Unsp spec) Not detected Not Detected [facility] B. parapertussis DNA ESTELITA+probe Ql (Unsp spec) Not detected Not Detected [facility] B. pertussis DNA ESTELITA+probe Ql (Unsp spec) Not detected Not Detected [facility] C. pneumoniae DNA ESTELITA+probe Ql (Unsp spec) Not detected Not Detected [facility] FLUAV RNA ESTELITA+probe Ql (Unsp spec) Not detected Not Detected [facility] FLUBV RNA ESTELITA+probe Ql (Unsp spec) Not detected Not Detected [facility] HCoV 229E RNA ESTELITA+non-probe Ql (Nph) Not detected Not Detected [facility] HCoV HKU1 RNA ESTELITA+non-probe Ql (Nph) Not detected Not Detected [facility] HCoV NL63 RNA ESTELITA+non-probe Ql (Nph) Not detected Not Detected [facility] HCoV OC43 RNA ESTELITA+non-probe Ql (Nph) Not detected Not Detected [facility] hMPV A RNA ESTELITA+probe Ql (Unsp spec) Not detected Not Detected [facility] Interpretation and review of laboratory results Normal [facility] M. pneumoniae DNA ESTELITA+probe Ql (Unsp spec) Not detected Not Detected [facility] Parainfluenza virus 1 RNA ESTELITA+probe Ql (Unsp spec) Not detected Not Detected [facility] Parainfluenza virus 2 RNA ESTELITA+probe Ql (Unsp spec) Not detected Not Detected [facility] Parainfluenza virus 3 RNA ESTELITA+probe Ql (Unsp spec) Not detected Not Detected [facility] Parainfluenza virus 4 RNA ESTELITA+probe Ql (Unsp spec) Not detected Not Detected [facility] Rhinovirus+Enterovir us RNA ESTELITA+probe Ql (Unsp spec) Not detected Not Detected [facility] RSV RNA ESTELITA+probe Ql (Unsp spec) Not detected Not Detected [facility] SARS-CoV-2 (COVID-19) RNA ESTELITA+probe Ql (Unsp spec) Not detected NOT DETECTED [facility]-28-2023 Albumin [Mass/Vol] 4.0 g/dL Normal 3.4-5.0 [facility] Comment on above: Performed By: #### C MP #### [facility] [address] [place] [id number] [address] Dwight Waters ALKALINE PHOSPHAon ALP [Catalytic activity/Vol] 106 U/L Normal 46-116 [facility] Comment on above: Performed By: #### F [id number] #### [facility] [address] [place] [address] Dr. Dwight Waters BILIRUBIN CONJUGATED (DIRECT )on 04-28-2023 BILI, CONJUGATED 0.3 mg/dL Critically high 0.0-0.2 [facility] Comment on above: Performed By: #### C MP #### [facility] [address] [place] [address] Dr. Dwight Waters BILIRUBIN TOTALon 04-28-2023 Bilirubin [Mass/Vol] 1.4 mg/dL Critically high 0.2-1.0 [facility] Comment on above: Performed By: #### C MP #### [facility] [address] [place] [address] Dr. Dwight Waters BUNon 04-28-2023 Urea nitrogen [Mass/Vol] 12.0 mg/dL Normal 7.0-18.0 [facility] Comment on above: Performed By: #### U RTPCR #### [facility] [address] [place] [address] Dr. Dwight Waters CALCIUMon 04-28-2023 Calcium [Mass/Vol] 9.3 mg/dL Normal 8.5-10.1 [facility] Comment on above: Performed By: #### U RTPCR #### [facility] [address] [place] [address] Dr. Dwight Waters CBC AUTO DIFFon 04-28-2023 BASO # 0.1 103/ul Normal 0.0-0.1 [facility] Comment on above: Performed By: #### C BC #### [facility] [address] [place] [address] Dr. Dwight Waters Basophils/100 WBC (Bld) 0.9 % Normal 0.2-2.0 [facility] Comment on above: Performed By: #### C BC #### [facility] [address] [place] [address] Dr. Dwight Waters EO # 0.2 103/ul Normal 0.0-0.7 [facility] Comment on above: Performed By: #### C BC #### [facility] [address] [place] [address] Dr. Dwight Waters Eosinophils/100 WBC (Bld) 3.8 % Normal 0.9-7.0 [facility] Comment on above: Performed By: #### C BC #### [facility] [address] [place] [address] Dr. Dwight Waters Erythrocyte distribution width (RBC) [Ratio] 12.5 % Normal 11.0-15.0 [facility] Comment on above: Performed By: #### C BC #### [facility] [address] [place] [address] Dr. Dwight Waters Hematocrit (Bld) [Volume fraction] 49.8 % Normal 42.0-54.0 [facility] Comment on above: Performed By: #### C BC #### [facility] [address] [place] [address] Dr. Dwight Waters Hemoglobin (Bld) [Mass/Vol] 16.4 g/dL Normal 14.0-18.0 [facility] Comment on above: Performed By: #### C BC #### [facility] [address] [place] [address] Dr. Dwight Waters IG # 0.01 10e3/ul Normal 0.00-0.03 [facility] Comment on above: Performed By: #### C BC #### [facility] [address] [place] [address] Dr. Dwight Waters IG % 0.2 % Normal 0.0-0.5 [facility] Comment on above: Performed By: #### C BC #### [facility] [address] [place] [address] Dr. Dwight Waters LYMPH # 2.1 103/ul Normal 1.2-3.8 [facility] Comment on above: Performed By: #### C BC #### [facility] [address] [place] [address] Dr. Dwight Waters Lymphocytes/100 WBC (Bld) 39.1 % Normal 20.5-60.0 [facility] Comment on above: Performed By: #### C BC #### [facility] [address] [place] [address] Dr. Dwight Waters MANUAL DIFF REQ NO Normal [facility] Comment on above: Performed By: #### C BC #### [facility] [address] [place] [address] Dr. Dwight Waters MCH (RBC) [Entitic mass] 28.6 pg Normal 25.9-34.0 [facility] Comment on above: Performed By: #### C BC #### [facility] [address] [place] [address] Dr. Dwight Waters MCHC (RBC) [Mass/Vol] 32.9 g/dL Normal 29.9-35.2 [facility] Comment on above: Performed By: #### C BC #### [facility] [address] [place] [address] Dr. Dwight Waters MCV (RBC) [Entitic vol] 86.9 fL Normal 80.0-94.0 [facility] Comment on above: Performed By: #### C BC #### [facility] [address] [place] [address] Dr. Dwight Waters MONO # 0.6 103/ul Normal 0.3-0.8 [facility] Comment on above: Performed By: #### C BC #### [facility] [address] [place] [address] Dr. Dwight Waters Monocytes/100 WBC (Bld) 10.6 % Normal 1.7-12.0 [facility] Comment on above: Performed By: #### C BC #### [facility] [address] [place] [address] Dr. Dwight Waters NEUT # 2.5 103/ul Normal 1.4-6.5 [facility] Comment on above: Performed By: #### C BC #### [facility] [address] [place] [address] Dr. Dwight Waters Neutrophils/100 WBC (Bld) 45.4 % Normal 43.0-75.0 [facility] Comment on above: Performed By: #### C BC #### [facility] [address] [place] [address] Dr. Dwight Waters Platelet mean volume (Bld) [Entitic vol] 9.3 fL Critically low 9.5-13.5 [facility] Comment on above: Performed By: #### C BC #### [facility] [address] [place] [address] Dr. Dwight Waters PLT 248 103/ul Normal 150-450 [facility] Comment on above: Performed By: #### C BC #### [facility] [address] [place] [address] Dr. Dwight Waters RBC 5.73 106/ul Normal 4.70-6.10 [facility] Comment on above: Performed By: #### C BC #### [facility] [address] [place] [address] Dr. Dwight Waters WBC 5.5 103/ul Normal 4.0-11.0 [facility] Comment on above: Performed By: #### C BC #### [facility] [address] [place] [address] Dr. Dwight Waters CHLORIDEon 04-28-2023 Chloride [Moles/Vol] 107 mmol/L Normal 98-107 [facility] Comment on above: Performed By: #### U RTPCR #### [facility] [address] [place] [address] Dr. Dwight Waters CO2on 04-28-2023 CO2 [Moles/Vol] 28.9 mmol/L Normal 21.0-32.0 [facility] Comment on above: Performed By: #### U RTPCR #### [facility] [address] [place] [address] Dr. Dwight Waters CREATININEon 04-28-2023 Creatinine [Mass/Vol] 1.17 mg/dL Normal 0.70-1.30 [facility] Comment on above: Performed By: #### U RTPCR #### [facility] [address] [place] [address] Dr. Dwight Waters EGFR-AF CYMRO >60 Normal >=60 [facility] Comment on above: Performed By: #### U RTPCR #### [facility] [address] [place] [address] Dr. Dwight Waters EGFR-NON AF CYMRO >60 Normal >=60 [facility] Comment on above: Performed By: #### U RTPCR #### [facility] [address] [place] [address] Dr. Dwight Waters GGTon 04-28-2023 Gamma glutamyl transferase [Catalytic activity/Vol] 27 U/L Normal 15-85 [facility] Comment on above: Performed By: #### U RTPCR #### [facility] [address] [place] [address] Dr. Dwight Waters GLUCOSE BLOODon 04-28-2023 Glucose [Mass/Vol] 110 mg/dL Critically high 74-106 T [facility] Comment on above: Performed By: #### U RTPCR #### [facility] [address] [place] [address] Dr. Dwight Waters MAGNESIUMon 04-28-2023 Magnesium [Mass/Vol] 1.7 mg/dL Critically low 1.8-2.4 [facility] Comment on above: Performed By: #### U RTPCR #### [facility] [address] [place] [address] Dr. Dwight Waters NAon 04-28-2023 Sodium [Moles/Vol] 144 mmol/L Normal 136-145 [facility] Comment on above: Performed By: #### U RTPCR #### [facility] [address] [place] [address] Dr. Dwight Waters PHOSPHORUSon 04-28-2023 Phosphate [Mass/Vol] 3.2 mg/dL Normal 2.6-4.7 [facility] Comment on above: Performed By: #### U RTPCR #### [facility] [address] [place] [address] Dr. Dwight Waters POTASSIUMon 04-28-2023 Potassium [Moles/Vol] 4.0 mmol/L Normal 3.5-5.1 [facility] Comment on above: Performed By: #### U RTPCR #### [facility] [address] [place] [address] Dr. Dwight Waters SGOTon 04-28-2023 AST [Catalytic activity/Vol] 25 U/L Normal 15-37 [facility] Comment on above: Performed By: #### C MP #### [facility] [address] [place] [address] Dr. Dwight Waters SGPTon 04-28-2023 ALT [Catalytic activity/Vol] 40 U/L Normal 16-63 [facility] Comment on above: Performed By: #### C MP #### [facility] [address] [place] [address] Dr. Dwight Waters URINE T PROTEIN CREAT RATIOo n 04-28-2023 Protein (U) [Mass/Vol] 10.1 mg/dL Normal <=12.0 [facility] Comment on above: Performed By: #### U RTPCR #### [facility] [address] [place] [address] Dr. Dwight Waters UR PROT CREAT RAT 0.14 Normal [facility] Comment on above: Performed By: #### U RTPCR #### [facility] [address] [place] [address] Dr. Dwight Waters URINE CREAT 74.40 mg/dL Normal 20.00-300.00 [facility] Comment on above: Performed By: #### U RTPCR #### [facility] [address] [place] [address] Dr. Dwight Waters Office Visiton 04-13-2023 Follow-up visit [id number] JensenGeorge Tray 1970 M Date Provider Department Center 04/13/2023 MIGUEL PARADA [facility] Family History Problem Relation Age of Onset Coronary artery disease Mother Coronary artery disease Father Family Status - Relation Status Age at Mother Father Level of Service:86650 MT OFFICE/OUTPATIENT ESTABLISHED LOW MDM 20-29 MIN Reason for Visit and Comments: Hypertension [437527] Hyperlipidemia [182] Normal [facility] BK VIRUS PCR QUANTon 023 BKV DNA QUANT PCR PLASMA Negative Normal Negative [facility] Comment on above: Result Comment: No B K DNA detected. . The linear range of the assay is 22 - 100,000,000 IU/mL. Performed By: #### B KVIRUS #### [facility] [address] [place] [address] Dr. Dwight Waters Log10 BKV DNA Plasma Normal [facility] Comment on above: Performed By: #### B KVIRUS #### [facility] [address] [place] [address] Dr. Dwight Waters FK506 (TACROLIMUS) WHOLE BLO ODon 03-04-2023 Tacrolimus (FK506), Blood 5.9 ng/mL Normal 2.0-20.0 [facility] Comment on above: Result Comment: Trou gh (immediately following transplant) 15.0 . Trough (steady state, 2 weeks or more after transplant): 3.0 - 8.0 . Performed by LC-MS/MS technology. Performed By: #### C MP #### [facility] [address] [place] [address] Dr. Dwight Waters ALBUMINon 03-02-2023 Albumin [Mass/Vol] 3.9 g/dL Normal 3.4-5.0 [facility] Comment on above: Performed By: #### U RTPCR #### [facility] [address] [place] [address] Dr. Dwight Waters ALKALINE PHOSPHAon ALP [Catalytic activity/Vol] 105 U/L Normal 46-116 [facility] Comment on above: Performed By: #### U RTPCR #### [facility] [address] [place] [address] Dr. Dwight Waters BILIRUBIN CONJUGATED (DIRECT )on 03-02-2023 BILI, CONJUGATED 0.2 mg/dL Normal 0.0-0.2 [facility] Comment on above: Performed By: #### U RTPCR #### [facility] [address] [place] [address] Dr. Dwight Waters BILIRUBIN TOTALon 03-02-2023 Bilirubin [Mass/Vol] 0.9 mg/dL Normal 0.2-1.0 [facility] Comment on above: Performed By: #### U RTPCR #### [facility] [address] [place] [address] Dr. Dwight Waters CBC AUTO DIFFon 03-02-2023 BASO # 0.1 103/ul Normal 0.0-0.1 [facility] Comment on above: Performed By: #### C BC #### [facility] [address] [place] [address] Dr. Dwight Waters Basophils/100 WBC (Bld) 0.9 % Normal 0.2-2.0 [facility] Comment on above: Performed By: #### C BC #### [facility] [address] [place] [address] Dr. Dwight Waters EO # 0.2 103/ul Normal 0.0-0.7 [facility] Comment on above: Performed By: #### C BC #### [facility] [address] [place] [address] Dr. Dwight Waters Eosinophils/100 WBC (Bld) 3.5 % Normal 0.9-7.0 [facility] Comment on above: Performed By: #### C BC #### [facility] [address] [place] [address] Dr. Dwight Waters Erythrocyte distribution width (RBC) [Ratio] 12.7 % Normal 11.0-15.0 [facility] Comment on above: Performed By: #### C BC #### [facility] [address] [place] [address] Dr. Dwight Waters Hematocrit (Bld) [Volume fraction] 48.2 % Normal 42.0-54.0 [facility] Comment on above: Performed By: #### C BC #### [facility] [address] [place] [address] Dr. Dwight Waters Hemoglobin (Bld) [Mass/Vol] 15.9 g/dL Normal 14.0-18.0 [facility] Comment on above: Performed By: #### C BC #### [facility] [address] [place] [address] Dr. Dwight Wtaers IG # 0.01 10e3/ul Normal 0.00-0.03 [facility] Comment on above: Performed By: #### C BC #### [facility] [address] [place] [address] Dr. Dwight Waters IG % 0.2 % Normal 0.0-0.5 [facility] Comment on above: Performed By: #### C BC #### [facility] [address] [place] [address] Dr. Dwight Waters LYMPH # 2.1 103/ul Normal 1.2-3.8 [facility] Comment on above: Performed By: #### C BC #### [facility] [address] [place] [address] Dr. Dwight Waters Lymphocytes/100 WBC (Bld) 37.4 % Normal 20.5-60.0 [facility] Comment on above: Performed By: #### C BC #### [facility] [address] [place] [address] Dr. Dwight Waters MANUAL DIFF REQ NO Normal [facility] Comment on above: Performed By: #### C BC #### [facility] [address] [place] [address] Dr. Dwight Waters MCH (RBC) [Entitic mass] 28.3 pg Normal 25.9-34.0 [facility] Comment on above: Performed By: #### C BC #### [facility] [address] [place] [address] Dr. Dwight Waters MCHC (RBC) [Mass/Vol] 33.0 g/dL Normal 29.9-35.2 [facility] Comment on above: Performed By: #### C BC #### [facility] [address] [place] [address] Dr. Dwight Waters MCV (RBC) [Entitic vol] 85.8 fL Normal 80.0-94.0 [facility] Comment on above: Performed By: #### C BC #### [facility] [address] [place] [address] Dr. Dwight Waters MONO # 0.6 103/ul Normal 0.3-0.8 [facility] Comment on above: Performed By: #### C BC #### [facility] [address] [place] [address] Dr. Dwight Waters Monocytes/100 WBC (Bld) 10.2 % Normal 1.7-12.0 [facility] Comment on above: Performed By: #### C BC #### [facility] [address] [place] [address] Dr. Dwight Waters NEUT # 2.7 103/ul Normal 1.4-6.5 [facility] Comment on above: Performed By: #### C BC #### [facility] [address] [place] [address] Dr. Dwight Waters Neutrophils/100 WBC (Bld) 47.8 % Normal 43.0-75.0 [facility] Comment on above: Performed By: #### C BC #### [facility] [address] [place] [address] Dr. Dwight Waters Platelet mean volume (Bld) [Entitic vol] 9.3 fL Critically low 9.5-13.5 [facility] Comment on above: Performed By: #### C BC #### [facility] [address] [place] [address] Dr. Dwight Waters PLT 241 103/ul Normal 150-450 [facility] Comment on above: Performed By: #### C BC #### [facility] [address] [place] [address] Dr. Dwight Waters RBC 5.62 106/ul Normal 4.70-6.10 [facility] Comment on above: Performed By: #### C BC #### [facility] [address] [place] [address] Dr. Dwight Waters WBC 5.7 103/ul Normal 4.0-11.0 [facility] Comment on above: Performed By: #### C BC #### [facility] [address] [place] [address] Dr. Dwight Waters GGTon 03-02-2023 Gamma glutamyl transferase [Catalytic activity/Vol] 25 U/L Normal 15-85 [facility] Comment on above: Performed By: #### U RTPCR #### [facility] [address] [place] [address] Dr. Dwight Waters MAGNESIUMon 03-02-2023 Magnesium [Mass/Vol] 1.6 mg/dL Critically low 1.8-2.4 [facility] Comment on above: Performed By: #### U RTPCR #### [facility] [address] [address] [address] Dwight Waters PHOSPHORUSon 03-02-2023 Phosphate [Mass/Vol] 3.6 mg/dL Normal 2.6-4.7 [facility] Comment on above: Performed By: #### U RTPCR #### [facility] [address] [address] [address] Dwight Waters PROF CHEM 8 (BAS METB)on Anion gap [Moles/Vol] 9.4 mmol/L Normal [facility] Comment on above: Performed By: #### U RTPCR #### [facility] [address] [address] [address] Dwight Waters Calcium [Mass/Vol] 9.3 mg/dL Normal 8.5-10.1 [facility] Comment on above: Performed By: #### U RTPCR #### [facility] [address] [place] [address] Dr. Dwight Waters Chloride [Moles/Vol] 108 mmol/L Critically high 98-107 [facility] Comment on above: Performed By: #### U RTPCR #### [facility] [address] [address] [address] Dwight Waters CO2 [Moles/Vol] 27.2 mmol/L Normal 21.0-32.0 [facility] Comment on above: Performed By: #### U RTPCR #### [facility] [address] [place] [address] Dr. Dwight Waters Creatinine [Mass/Vol] 1.12 mg/dL Normal 0.70-1.30 [facility] Comment on above: Performed By: #### U RTPCR #### [facility] Laboratory [address] [place] [address] Dr. Dwight Waters EGFR-AF CYMRO >60 Normal >=60 [facility] Comment on above: Performed By: #### U RTPCR #### [facility] Laboratory [address] [place] [address] Dr. Dwight Waters EGFR-NON AF CYMRO >60 Normal >=60 [facility] Comment on above: Performed By: #### U RTPCR #### [facility] Laboratory [address] [address] [address] Dwight Waters Glucose [Mass/Vol] 113 mg/dL Critically high 74-106 [facility] Comment on above: Performed By: #### U RTPCR #### [facility] Laboratory [address] [address] [address] Dwight Waters Potassium [Moles/Vol] 3.6 mmol/L Normal 3.5-5.1 [facility] Comment on above: Performed By: #### U RTPCR #### [facility] Laboratory [address] [address] [address] Dwight Waters Sodium [Moles/Vol] 141 mmol/L Normal 136-145 [facility] Comment on above: Performed By: #### U RTPCR #### [facility] Laboratory [address] [place] [address] Dr. Dwight Waters Urea nitrogen [Mass/Vol] 14.0 mg/dL Normal 7.0-18.0 [facility] Comment on above: Performed By: #### U RTPCR #### [facility] Laboratory [address] [address] [address] Dwight Waters Urea nitrogen/Creatinine [Mass ratio] 12.5 mg/mg Normal [facility] Comment on above: Performed By: #### U RTPCR #### [facility] Laboratory [address] [address] [address] Dwigth Waters SGOTon 03-02-2023 AST [Catalytic activity/Vol] 20 U/L Normal 15-37 [facility] Comment on above: Performed By: #### U RTPCR #### [facility] Laboratory [address] [address] [address] Dwight Waters SGPTon 03-02-2023 ALT [Catalytic activity/Vol] 30 U/L Normal 16-63 [facility] Comment on above: Performed By: #### U RTPCR #### [facility] Laboratory [address] [place] [address] Dr. Dwight Waters URINE T PROTEIN CREAT RATIOo n 03-02-2023 Protein (U) [Mass/Vol] 10.3 mg/dL Normal <=12.0 [facility] Comment on above: Performed By: #### U RTPCR #### [facility] Laboratory [address] [place] [address] Dr. Dwight Waters UR PROT CREAT RAT 0.15 Normal [facility] Comment on above: Performed By: #### U RTPCR #### [facility] Laboratory [address] [place] [address] Dr. Dwight Waters URINE CREAT 68.96 mg/dL Normal 20.00-300.00 [facility] Comment on above: Performed By: #### U RTPCR #### [facility] Laboratory [address] [place] [address] Dr. Dwight Waters BK VIRUS PCR QUANTon 023 BKV DNA QUANT PCR PLASMA Negative Normal Negative [facility] Comment on above: Result Comment: No B K DNA detected. . The linear range of the assay is 22 - 100,000,000 IU/mL. Performed By: #### C MP #### [facility] Laboratory [address] [place] [address] Dr. Dwight Waters Log10 BKV DNA Plasma Normal [facility] Comment on above: Performed By: #### C MP #### [facility] Laboratory [address] [place] [address] Dr. Dwight Waters FK506 (TACROLIMUS) WHOLE BLO ODon 12-31-2022 Tacrolimus (FK506), Blood 5.6 ng/mL Normal 2.0-20.0 [facility] Comment on above: Result Comment: Trou gh (immediately following transplant) 15.0 . Trough (steady state, 2 weeks or more after transplant): 3.0 - 8.0 . Performed by LC-MS/MS technology. Performed By: #### C MP #### [facility] Laboratory [address] [place] [address] Dr. Dwight Waters ALKALINE PHOSPHAon ALP [Catalytic activity/Vol] 96 U/L Normal 46-116 [facility] Comment on above: Performed By: #### C BC #### [facility] Laboratory [address] [place] [address] Dr. Dwight Waters BILIRUBIN CONJUGATED (DIRECT )on 12-29-2022 BILI, CONJUGATED 0.3 mg/dL Critically high 0.0-0.2 [facility] Comment on above: Performed By: #### C BC #### [facility] Laboratory [address] [place] [address] Dr. Dwight Waters BILIRUBIN TOTALon 12-29-2022 Bilirubin [Mass/Vol] 1.1 mg/dL Critically high 0.2-1.0 [facility] Comment on above: Performed By: #### C BC #### [facility] Laboratory [address] [place] [address] Dr. Dwight Waters CBC AUTO DIFFon 12-29-2022 BASO # 0.1 103/ul Normal 0.0-0.1 [facility] Comment on above: Performed By: #### C MP #### [facility] Laboratory [address] [place] [address] Dr. Dwight Waters Basophils/100 WBC (Bld) 0.8 % Normal 0.2-2.0 [facility] Comment on above: Performed By: #### C MP #### [facility] Laboratory [address] [place] [address] Dr. Dwight Waters EO # 0.2 103/ul Normal 0.0-0.7 [facility] Comment on above: Performed By: #### C MP #### [facility] [address] [place] [address] Dr. Dwight Waters Eosinophils/100 WBC (Bld) 3.0 % Normal 0.9-7.0 [facility] Comment on above: Performed By: #### C MP #### [facility] [address] [place] [address] Dr. Dwight Waters Erythrocyte distribution width (RBC) [Ratio] 12.9 % Normal 11.0-15.0 [facility] Comment on above: Performed By: #### C MP #### [facility] [address] [place] [address] Dr. Dwight Waters Hematocrit (Bld) [Volume fraction] 46.9 % Normal 42.0-54.0 [facility] Comment on above: Performed By: #### C MP #### [facility] [address] [place] [address] Dr. Dwight Waters Hemoglobin (Bld) [Mass/Vol] 16.1 g/dL Normal 14.0-18.0 [facility] Comment on above: Performed By: #### C MP #### [facility] [address] [place] [address] Dr. Diwght Waters IG # 0.01 10e3/ul Normal 0.00-0.03 [facility] Comment on above: Performed By: #### C MP #### [facility] [address] [place] [address] Dr. Dwight Waters IG % 0.2 % Normal 0.0-0.5 [facility] Comment on above: Performed By: #### C MP #### [facility] [address] [place] [address] Dr. Dwight Waters LYMPH # 1.8 103/ul Normal 1.2-3.8 [facility] Comment on above: Performed By: #### C MP #### [facility] Laboratory [address] [place] [address] Dr. Dwight Waters Lymphocytes/100 WBC (Bld) 27.9 % Normal 20.5-60.0 [facility] Comment on above: Performed By: #### C MP #### [facility] [address] [place] [address] Dr. Dwight Waters MANUAL DIFF REQ NO Normal [facility] Comment on above: Performed By: #### C MP #### [facility] [address] [place] [address] Dr. Dwight Waters MCH (RBC) [Entitic mass] 28.5 pg Normal 25.9-34.0 [facility] Comment on above: Performed By: #### C MP #### [facility] [address] [place] [address] Dr. Dwight Waters MCHC (RBC) [Mass/Vol] 34.3 g/dL Normal 29.9-35.2 [facility] Comment on above: Performed By: #### C MP #### [facility] [address] [place] [address] Dr. Dwight Waters MCV (RBC) [Entitic vol] 83.2 fL Normal 80.0-94.0 [facility] Comment on above: Performed By: #### C MP #### [facility] [address] [place] [address] Dr. Dwight Waters MONO # 0.5 103/ul Normal 0.3-0.8 [facility] Comment on above: Performed By: #### C MP #### [facility] [address] [place] [address] Dr. Dwight Waters Monocytes/100 WBC (Bld) 8.1 % Normal 1.7-12.0 [facility] Comment on above: Performed By: #### C MP #### [facility] [address] [place] [address] Dr. Dwight Waters NEUT # 3.8 103/ul Normal 1.4-6.5 [facility] Comment on above: Performed By: #### C MP #### [facility] [address] [place] [address] Dr. Dwight Waters Neutrophils/100 WBC (Bld) 60.0 % Normal 43.0-75.0 [facility] Comment on above: Performed By: #### C MP #### [facility] [address] [place] [address] Dr. Dwight Waters Platelet mean volume (Bld) [Entitic vol] 9.2 fL Critically low 9.5-13.5 [facility] Comment on above: Performed By: #### C MP #### [facility] [address] [place] [address] Dr. Dwight Waters PLT 225 103/ul Normal 150-450 [facility] Comment on above: Performed By: #### C MP #### [facility] [address] [place] [address] Dr. Dwight Waters RBC 5.64 106/ul Normal 4.70-6.10 [facility] Comment on above: Performed By: #### C MP #### [facility] [address] [place] [address] Dr. Dwight Waters WBC 6.3 103/ul Normal 4.0-11.0 [facility] Comment on above: Performed By: #### C MP #### [facility] [address] [place] [address] Dr. Dwight Waters GGTon 12-29-2022 Gamma glutamyl transferase [Catalytic activity/Vol] 24 U/L Normal 15-85 [facility] Comment on above: Performed By: #### C MP #### [facility] [address] [place] [address] Dr. Dwight Waters LIPID PROFILEon 12-29-2022 CHOL-HDL RATIO NORM SEE BELOW Normal [facility] Comment on above: Result Comment: 3.3 - 4.4 LOW RISK 4.4 - 7.1 AVERAGE RISK 7.1 - 11.0 MODERATE RISK >11.0 HIGH RISK Performed By: #### U RTPCR #### [facility] [address] [place] [address] Dr. Dwight Waters Cholesterol [Mass/Vol] 87 mg/dL Normal <=200 [facility] Comment on above: Performed By: #### U RTPCR #### [facility] [address] [place] [address] Dr. Dwight Waters Cholesterol in HDL [Mass/Vol] 44 mg/dL Normal 40-60 [facility] Comment on above: Performed By: #### U RTPCR #### [facility] [address] [place] [address] Dr. Dwight Waters Cholesterol in LDL [Mass/Vol] 33.0 mg/dL Normal [facility] Comment on above: Performed By: #### U RTPCR #### [facility] [address] [place] [address] Dr. Dwight Waters Cholesterol.total/Ch olesterol in HDL [Mass ratio] 2.0 {ratio} Normal [facility] Comment on above: Performed By: #### U RTPCR #### [facility] [address] [place] [address] Dr. Dwight Waters HDL NORMAL > or = 60 mg/dl - LO W CARDIOVASCULAR RISK <40 mg/dl - HIGH CARDIOVASCULAR RISK Normal [facility] Comment on above: Performed By: #### U RTPCR #### [facility] [address] [address] [address] Dwight Waters LDL CALC NORMAL SEE BELOW Normal [facility] Comment on above: Result Comment: <100 mg/dl OPTIMAL 100 - 129 mg/dl NEAR OR ABOVE OPTIMAL 130 - 159 mg/dl BORDERLINE HIGH 160 - 189 mg/dl HIGH >190 mg/dl VERY HIGH Performed By: #### U RTPCR #### [facility] [address] [place] [address] Dr. Dwight Waters Triglyceride [Mass/Vol] 50 mg/dL Normal <=150 [facility] Comment on above: Performed By: #### U RTPCR #### [facility] [address] [place] [address] Dr. Dwight Waetrs VLDL CALC 10.0 mg/dL Normal [facility] Comment on above: Performed By: #### U RTPCR #### [facility] [address] [place] [address] Dr. Dwight Waters MAGNESIUMon 12-29-2022 Magnesium [Mass/Vol] 1.6 mg/dL Critically low 1.8-2.4 [facility] Comment on above: Performed By: #### C BC #### [facility] [address] [place] [address] Dr. Dwight Waters RENAL FUNCTION PANELon 12-29 Albumin [Mass/Vol] 3.9 g/dL Normal 3.4-5.0 [facility] Comment on above: Performed By: #### C BC #### [facility] [address] [place] [address] Dr. Dwight Waters Calcium [Mass/Vol] 9.2 mg/dL Normal 8.5-10.1 [facility] Comment on above: Performed By: #### C BC #### [facility] [address] [place] [address] Dr. Dwight Waters Chloride [Moles/Vol] 109 mmol/L Critically high 98-107 [facility] Comment on above: Performed By: #### C BC #### [facility] [address] [place] [address] Dr. Dwight Waters CO2 [Moles/Vol] 27.0 mmol/L Normal 21.0-32.0 [facility] Comment on above: Performed By: #### C BC #### [facility] [address] [address] [address] Dwight Waters Creatinine [Mass/Vol] 1.02 mg/dL Normal 0.70-1.30 [facility] Comment on above: Performed By: #### C BC #### [facility] [address] [address] [address] Dwight Waters EGFR-AF CYMRO >60 Normal >=60 [facility] Comment on above: Performed By: #### C BC #### [facility] [address] [address] [address] Dwight Waters EGFR-NON AF CYMRO >60 Normal >=60 [facility] Comment on above: Performed By: #### C BC #### [facility] [address] [place] [address] Dr. Dwight Waters Glucose [Mass/Vol] 117 mg/dL Critically high 74-106 [facility] Comment on above: Performed By: #### C BC #### [facility] [address] [address] [address] Dwight Waters Phosphate [Mass/Vol] 3.2 mg/dL Normal 2.6-4.7 [facility] Comment on above: Performed By: #### C BC #### [facility] [address] [place] [address] Dr. Dwight Waters Potassium [Moles/Vol] 4.1 mmol/L Normal 3.5-5.1 [facility] Comment on above: Performed By: #### C BC #### [facility] [address] [address] [address] Dwight Waters Sodium [Moles/Vol] 144 mmol/L Normal 136-145 [facility] Comment on above: Performed By: #### C BC #### [facility] [address] [address] [address] Dwight Waters Urea nitrogen [Mass/Vol] 13.0 mg/dL Normal 7.0-18.0 [facility] Comment on above: Performed By: #### C BC #### [facility] [address] [place] [address] Dr. Dwight Waters SGOTon 12-29-2022 AST [Catalytic activity/Vol] 21 U/L Normal 15-37 [facility] Comment on above: Performed By: #### C BC #### [facility] [address] [place] [address] Dr. Dwight Waters SGPTon 12-29-2022 ALT [Catalytic activity/Vol] 32 U/L Normal 16-63 [facility] Comment on above: Performed By: #### C BC #### [facility] [address] [place] [address] Dr. Dwight Waters URINE T PROTEIN CREAT RATIOo n 12-29-2022 Protein (U) [Mass/Vol] 14.3 mg/dL Critically high <=12.0 [facility] Comment on above: Performed By: #### U RTPCR #### [facility] [address] [place] [address] Dr. Dwight Waters UR PROT CREAT RAT 0.17 Normal [facility] Comment on above: Performed By: #### U RTPCR #### [facility] [address] [place] [address] Dr. Dwight Waters URINE CREAT 86.58 mg/dL Normal 20.00-300.00 [facility] Comment on above: Performed By: #### U RTPCR #### [facility] [address] [place] [address] Dr. Dwight Waters FK506 (TACROLIMUS) WHOLE BLO ODon 11-06-2022 Tacrolimus (FK506), Blood 4.9 ng/mL Normal 2.0-20.0 [facility] Comment on above: Result Comment: Trou gh (immediately following transplant) 15.0 . Trough (steady state, 2 weeks or more after transplant): 3.0 - 8.0 . Performed by LC-MS/MS technology. Performed By: #### U RTPCR #### [facility] [address] [place] [address] Dr. Dwight Waters ALKALINE PHOSPHAon ALP [Catalytic activity/Vol] 86 U/L Normal 46-116 [facility] Comment on above: Performed By: #### U RTPCR #### [facility] [address] [place] [address] Dr. Dwight Waters BILIRUBIN CONJUGATED (DIRECT )on 11-04-2022 BILI, CONJUGATED 0.2 mg/dL Normal 0.0-0.2 [facility] Comment on above: Performed By: #### U RTPCR #### [facility] [address] [place] [address] Dr. Dwight Waters BILIRUBIN TOTALon 11-04-2022 Bilirubin [Mass/Vol] 0.8 mg/dL Normal 0.2-1.0 [facility] Comment on above: Performed By: #### U RTPCR #### [facility] [address] [place] [address] Dr. Dwight Waters CBC AUTO DIFFon 11-04-2022 BASO # 0.1 103/ul Normal 0.0-0.1 [facility] Comment on above: Performed By: #### U RTPCR #### [facility] [address] [place] [address] Dr. Dwight Waters Basophils/100 WBC (Bld) 0.9 % Normal 0.2-2.0 [facility] Comment on above: Performed By: #### U RTPCR #### [facility] [address] [place] [address] Dr. Dwight Waters EO # 0.2 103/ul Normal 0.0-0.7 [facility] Comment on above: Performed By: #### U RTPCR #### [facility] [address] [place] [address] Dr. Dwight Waters Eosinophils/100 WBC (Bld) 3.7 % Normal 0.9-7.0 [facility] Comment on above: Performed By: #### U RTPCR #### [facility] [address] [place] [address] Dr. Dwight Waters Erythrocyte distribution width (RBC) [Ratio] 12.9 % Normal 11.0-15.0 [facility] Comment on above: Performed By: #### U RTPCR #### [facility] [address] [place] [address] Dr. Dwight Waters Hematocrit (Bld) [Volume fraction] 48.3 % Normal 42.0-54.0 [facility] Comment on above: Performed By: #### U RTPCR #### [facility] [address] [place] [address] Dr. Dwight Waters Hemoglobin (Bld) [Mass/Vol] 15.6 g/dL Normal 14.0-18.0 [facility] Comment on above: Performed By: #### U RTPCR #### [facility] [address] [place] [address] Dr. Dwight Waters IG # 0.01 10e3/ul Normal 0.00-0.03 [facility] Comment on above: Performed By: #### U RTPCR #### [facility] [address] [place] [address] Dr. Dwight Waters IG % 0.2 % Normal 0.0-0.5 [facility] Comment on above: Performed By: #### U RTPCR #### [facility] [address] [place] [address] Dr. Dwight Waters LYMPH # 1.9 103/ul Normal 1.2-3.8 [facility] Comment on above: Performed By: #### U RTPCR #### [facility] [address] [place] [address] Dr. Dwight Waters Lymphocytes/100 WBC (Bld) 33.0 % Normal 20.5-60.0 [facility] Comment on above: Performed By: #### U RTPCR #### [facility] [address] [place] [address] Dr. Dwight Waters MANUAL DIFF REQ NO Normal [facility] Comment on above: Performed By: #### U RTPCR #### [facility] [address] [place] [address] Dr. Dwight Waters MCH (RBC) [Entitic mass] 27.6 pg Normal 25.9-34.0 [facility] Comment on above: Performed By: #### U RTPCR #### [facility] [address] [address] [address] Dwight Waters MCHC (RBC) [Mass/Vol] 32.3 g/dL Normal 29.9-35.2 [facility] Comment on above: Performed By: #### U RTPCR #### [facility] [address] [place] [address] Dr. Dwight Waters MCV (RBC) [Entitic vol] 85.5 fL Normal 80.0-94.0 [facility] Comment on above: Performed By: #### U RTPCR #### [facility] [address] [place] [address] Dr. Dwight Waters MONO # 0.5 103/ul Normal 0.3-0.8 [facility] Comment on above: Performed By: #### U RTPCR #### [facility] [address] [place] [address] Dr. Dwight Waters Monocytes/100 WBC (Bld) 8.8 % Normal 1.7-12.0 [facility] Comment on above: Performed By: #### U RTPCR #### [facility] [address] [place] [address] Dr. Dwight Waters NEUT # 3.1 103/ul Normal 1.4-6.5 [facility] Comment on above: Performed By: #### U RTPCR #### [facility] [address] [place] [address] Dr. Dwight Waters Neutrophils/100 WBC (Bld) 53.4 % Normal 43.0-75.0 [facility] Comment on above: Performed By: #### U RTPCR #### [facility] [address] [place] [address] Dr. Dwight Waters Platelet mean volume (Bld) [Entitic vol] 9.2 fL Critically low 9.5-13.5 [facility] Comment on above: Performed By: #### U RTPCR #### [facility] [address] [place] [address] Dr. Dwight Waters PLT 255 103/ul Normal 150-450 [facility] Comment on above: Performed By: #### U RTPCR #### [facility] [address] [address] [address] Dwight Waters RBC 5.65 106/ul Normal 4.70-6.10 [facility] Comment on above: Performed By: #### U RTPCR #### [facility] [address] [place] [address] Dr. Dwight Waters WBC 5.7 103/ul Normal 4.0-11.0 [facility] Comment on above: Performed By: #### U RTPCR #### [facility] [facility] [address] [place] [address] Dr. Dwight Waters GGTon 11-04-2022 Gamma glutamyl transferase [Catalytic activity/Vol] 22 U/L Normal 15-85 [facility] Comment on above: Performed By: #### U RTPCR #### [facility] [address] [place] [address] Dr. Dwight Waters MAGNESIUMon 11-04-2022 Magnesium [Mass/Vol] 1.8 mg/dL Normal 1.8-2.4 [facility] Comment on above: Performed By: #### U RTPCR #### [facility] [address] [place] [address] Dr. Dwight Waters RENAL FUNCTION PANELon 11-04 Albumin [Mass/Vol] 3.8 g/dL Normal 3.4-5.0 [facility] Comment on above: Performed By: #### U RTPCR #### [facility] [address] [place] [address] Dr. Dwight Waetrs Calcium [Mass/Vol] 9.3 mg/dL Normal 8.5-10.1 [facility] Comment on above: Performed By: #### U RTPCR #### [facility] [address] [place] [address] Dr. Dwight Waters Chloride [Moles/Vol] 107 mmol/L Normal 98-107 [facility] Comment on above: Performed By: #### U RTPCR #### [facility] [address] [place] [address] Dr. Dwight Waters CO2 [Moles/Vol] 29.2 mmol/L Normal 21.0-32.0 [facility] Comment on above: Performed By: #### U RTPCR #### [facility] [address] [address] [address] Dwight Waters Creatinine [Mass/Vol] 1.07 mg/dL Normal 0.70-1.30 [facility] Comment on above: Performed By: #### U RTPCR #### [facility] [address] [address] [address] Dwight Waters EGFR-AF CYMRO >60 Normal >=60 [facility] Comment on above: Performed By: #### U RTPCR #### [facility] [address] [address] [address] Dwight Waters EGFR-NON AF CYMRO >60 Normal >=60 [facility] Comment on above: Performed By: #### U RTPCR #### [facility] [address] [place] [address] Dr. Dwight Waters Glucose [Mass/Vol] 106 mg/dL Normal 74-106 [facility] Comment on above: Performed By: #### U RTPCR #### [facility] [address] [address] [address] Dwight Waters Phosphate [Mass/Vol] 2.8 mg/dL Normal 2.6-4.7 [facility] Comment on above: Performed By: #### U RTPCR #### [facility] [address] [place] [address] Dr. Dwight Waters Potassium [Moles/Vol] 4.1 mmol/L Normal 3.5-5.1 [facility] Comment on above: Performed By: #### U RTPCR #### [facility] [address] [address] [address] Dwight Waters Sodium [Moles/Vol] 143 mmol/L Normal 136-145 [facility] Comment on above: Performed By: #### U RTPCR #### [facility] [address] [place] [address] Dr. Dwight Waters Urea nitrogen [Mass/Vol] 12.0 mg/dL Normal 7.0-18.0 [facility] Comment on above: Performed By: #### U RTPCR #### [facility] [address] [place] [address] Dr. Dwight Waters SGOTon 11-04-2022 AST [Catalytic activity/Vol] 19 U/L Normal 15-37 [facility] Comment on above: Performed By: #### U RTPCR #### [facility] [address] [place] [address] Dr. Dwight Waters SGPTon 11-04-2022 ALT [Catalytic activity/Vol] 28 U/L Normal 16-63 [facility] Comment on above: Performed By: #### U RTPCR #### [facility] [address] [place] [address] Dr. Dwight Waters URINE T PROTEIN CREAT RATIOo n 11-04-2022 Protein (U) [Mass/Vol] 10.7 mg/dL Normal <=12.0 [facility] Comment on above: Performed By: #### U RTPCR #### [facility] [address] [place] [address] Dr. Dwight Waters UR PROT CREAT RAT 0.13 Normal [facility] Comment on above: Performed By: #### U RTPCR #### [facility] [address] [place] [address] Dr. Dwight Waters URINE CREAT 84.50 mg/dL Normal 20.00-300.00 [facility] Comment on above: Performed By: #### U RTPCR #### [facility] [address] [place] [address] Dr. Dwight Waters FK506 (TACROLIMUS) WHOLE BLO ODon 09-18-2022 Tacrolimus (FK506), Blood 4.6 ng/mL Normal 2.0-20.0 [facility] Comment on above: Result Comment: Trou gh (immediately following transplant) 15.0 . Trough (steady state, 2 weeks or more after transplant): 3.0 - 8.0 . Performed by LC-MS/MS technology. Performed By: #### U RTPCR #### [facility] [address] [place] [address] Dr. Dwight Waters BK VIRUS PCR QUANTon 022 BKV DNA QUANT PCR PLASMA Negative Normal Negative [facility] Comment on above: Result Comment: No B K DNA detected. . The linear range of the assay is 22 - 100,000,000 IU/mL. Performed By: #### U RTPCR #### [facility] [address] [place] [address] Dr. Dwight Waters Log10 BKV DNA Plasma Normal [facility] Comment on above: Performed By: #### U RTPCR #### [facility] [address] [place] [address] Dr. Dwight Waters ALKALINE PHOSPHAon ALP [Catalytic activity/Vol] 92 U/L Normal 46-116 [facility] Comment on above: Performed By: #### U RTPCR #### [facility] [address] [place] [address] Dr. Dwight Waters BILIRUBIN CONJUGATED (DIRECT )on 09-15-2022 BILI, CONJUGATED 0.3 mg/dL Critically high 0.0-0.2 [facility] Comment on above: Performed By: #### U RTPCR #### [facility] [address] [place] [address] Dr. Dwight Waters BILIRUBIN TOTALon 09-15-2022 Bilirubin [Mass/Vol] 1.1 mg/dL Critically high 0.2-1.0 [facility] Comment on above: Performed By: #### U RTPCR #### [facility] [address] [place] [address] Dr. Dwight Waters CBC AUTO DIFFon 09-15-2022 BASO # 0.1 103/ul Normal 0.0-0.1 [facility] Comment on above: Performed By: #### C BC #### [facility] [address] [place] [address] Dr. Dwight Waters Basophils/100 WBC (Bld) 0.8 % Normal 0.2-2.0 [facility] Comment on above: Performed By: #### C BC #### [facility] [address] [place] [address] Dr. Dwight Waters EO # 0.2 103/ul Normal 0.0-0.7 [facility] Comment on above: Performed By: #### C BC #### [facility] [address] [place] [address] Dr. Dwight Waters Eosinophils/100 WBC (Bld) 3.5 % Normal 0.9-7.0 [facility] Comment on above: Performed By: #### C BC #### [facility] [address] [place] [address] Dr. Dwight Waters Erythrocyte distribution width (RBC) [Ratio] 13.0 % Normal 11.0-15.0 [facility] Comment on above: Performed By: #### C BC #### [facility] [address] [place] [address] Dr. Dwight Waters Hematocrit (Bld) [Volume fraction] 50.0 % Normal 42.0-54.0 [facility] Comment on above: Performed By: #### C BC #### [facility] [address] [place] [address] Dr. Dwight Waters Hemoglobin (Bld) [Mass/Vol] 16.0 g/dL Normal 14.0-18.0 [facility] Comment on above: Performed By: #### C BC #### [facility] [address] [place] [address] Dr. Dwight Waters IG # 0.02 10e3/ul Normal 0.00-0.03 [facility] Comment on above: Performed By: #### C BC #### [facility] [address] [place] [address] Dr. Dwight Waters IG % 0.3 % Normal 0.0-0.5 [facility] Comment on above: Performed By: #### C BC #### [facility] [address] [place] [address] Dr. Dwight Waters LYMPH # 1.8 103/ul Normal 1.2-3.8 [facility] Comment on above: Performed By: #### C BC #### [facility] [address] [place] [address] Dr. Dwight Waters Lymphocytes/100 WBC (Bld) 26.5 % Normal 20.5-60.0 [facility] Comment on above: Performed By: #### C BC #### [facility] [address] [place] [address] Dr. Dwight Waters MANUAL DIFF REQ NO Normal [facility] Comment on above: Performed By: #### C BC #### [facility] [address] [place] [address] Dr. Dwight Waters MCH (RBC) [Entitic mass] 28.1 pg Normal 25.9-34.0 [facility] Comment on above: Performed By: #### C BC #### [facility] [address] [place] [address] Dr. Dwight Waters MCHC (RBC) [Mass/Vol] 32.0 g/dL Normal 29.9-35.2 [facility] Comment on above: Performed By: #### C BC #### [facility] [address] [place] [address] Dr. Dwight Waters MCV (RBC) [Entitic vol] 87.9 fL Normal 80.0-94.0 [facility] Comment on above: Performed By: #### C BC #### [facility] [address] [place] [address] Dr. Dwight Waters MONO # 0.5 103/ul Normal 0.3-0.8 [facility] Comment on above: Performed By: #### C BC #### [facility] [address] [place] [address] Dr. Dwight Waters Monocytes/100 WBC (Bld) 8.1 % Normal 1.7-12.0 [facility] Comment on above: Performed By: #### C BC #### [facility] [address] [place] [address] Dr. Dwight Waters NEUT # 4.0 103/ul Normal 1.4-6.5 [facility] Comment on above: Performed By: #### C BC #### [facility] [address] [place] [address] Dr. Dwight Waters Neutrophils/100 WBC (Bld) 60.8 % Normal 43.0-75.0 [facility] Comment on above: Performed By: #### C BC #### [facility] [address] [place], [place] [id number] Dr. Dwight Waters Platelet mean volume (Bld) [Entitic vol] 9.4 fL Critically low 9.5-13.5 [facility] Comment on above: Performed By: #### C BC #### [facility] [address] [place] [address] Dr. Dwight Waters PLT 265 103/ul Normal 150-450 [facility] Comment on above: Performed By: #### C BC #### [facility] [address] [place] [address] Dr. Dwight Waters RBC 5.69 106/ul Normal 4.70-6.10 [facility] Comment on above: Performed By: #### C BC #### [facility] [address] [place] [address] Dr. Dwight Waters WBC 6.6 103/ul Normal 4.0-11.0 [facility] Comment on above: Performed By: #### C BC #### [facility] [address] [place] [address] Dr. Dwight Waters GGTon 09-15-2022 Gamma glutamyl transferase [Catalytic activity/Vol] 23 U/L Normal 15-85 [facility] Comment on above: Performed By: #### U RTPCR #### [facility] [address] [place] [address] Dr. Dwight Waters MAGNESIUMon 09-15-2022 Magnesium [Mass/Vol] 1.8 mg/dL Normal 1.8-2.4 [facility] Comment on above: Performed By: #### U RTPCR #### [facility] [address] [place] [address] Dr. Dwight Waters RENAL FUNCTION PANELon 09-15 Albumin [Mass/Vol] 4.1 g/dL Normal 3.4-5.0 [facility] Comment on above: Performed By: #### C BC #### [facility] [address] [place] [address] Dr. Dwight Waters Calcium [Mass/Vol] 9.3 mg/dL Normal 8.5-10.1 [facility] Comment on above: Performed By: #### C BC #### [facility] [address] [address] [address] Dwight Waters Chloride [Moles/Vol] 107 mmol/L Normal 98-107 [facility] Comment on above: Performed By: #### C BC #### [facility] [address] [place] [address] Dr. Dwight Waters CO2 [Moles/Vol] 25.6 mmol/L Normal 21.0-32.0 [facility] Comment on above: Performed By: #### C BC #### [facility] [address] [place] [address] Dr. Dwight Waters Creatinine [Mass/Vol] 1.01 mg/dL Normal 0.70-1.30 [facility] Comment on above: Performed By: #### C BC #### [facility] [address] [place] [address] Dr. Dwight Waters EGFR-AF CYMRO >60 Normal >=60 [facility] Comment on above: Performed By: #### C BC #### [facility] [address] [place] [address] Dr. Dwight Waters EGFR-NON AF CYMRO >60 Normal >=60 [facility] Comment on above: Performed By: #### C BC #### [facility] [address] [place] [address] Dr. Dwight Waters Glucose [Mass/Vol] 119 mg/dL Critically high 74-106 [facility] Comment on above: Performed By: #### C BC #### [facility] [address] [place] [address] Dr. Dwight Waters Phosphate [Mass/Vol] 2.8 mg/dL Normal 2.6-4.7 [facility] Comment on above: Performed By: #### C BC #### [facility] [address] [place] [address] Dr. Dwight Waters Potassium [Moles/Vol] 4.0 mmol/L Normal 3.5-5.1 [facility] Comment on above: Performed By: #### C BC #### [facility] [address] [place] [address] Dr. Dwight Waters Sodium [Moles/Vol] 141 mmol/L Normal 136-145 [facility] Comment on above: Performed By: #### C BC #### [facility] [address] [place] [address] Dr. Dwight Waters Urea nitrogen [Mass/Vol] 15.0 mg/dL Normal 7.0-18.0 [facility] Comment on above: Performed By: #### C BC #### [facility] [address] [place] [address] Dr. Dwight Waters SGOTon 09-15-2022 AST [Catalytic activity/Vol] 18 U/L Normal 15-37 [facility] Comment on above: Performed By: #### U RTPCR #### [facility] [address] [place] [address] Dr. Dwight Waters SGPTon 09-15-2022 ALT [Catalytic activity/Vol] 32 U/L Normal 16-63 [facility] Comment on above: Performed By: #### C BC #### [facility] [address] [place] [address] Dr. Dwight Waters URINE T PROTEIN CREAT RATIOo n 09-15-2022 Protein (U) [Mass/Vol] 14.1 mg/dL Critically high <=12.0 [facility] Comment on above: Performed By: #### U RTPCR #### [facility] [address] [place] [address] Dr. Dwight Waters UR PROT CREAT RAT 0.14 Normal [facility] Comment on above: Performed By: #### U RTPCR #### [facility] [address] [place] [address] Dr. Dwight Waters URINE CREAT 98.89 mg/dL Normal 20.00-300.00 [facility] Comment on above: Performed By: #### U RTPCR #### [facility] [address] [place] [address] Dr. Dwight Waters US CAROTID ART BILon [...] MÓNICA JIMENEZ Date: 2022-08-28 13:20 Normal [facility] FK506 (TACROLIMUS) WHOLE BLO ODon 08-17-2022 Tacrolimus (FK506), Blood 9.9 ng/mL Normal 2.0-20.0 [facility] Comment on above: Result Comment: Trou gh (immediately following transplant) 15.0 . Trough (steady state, 2 weeks or more after transplant): 3.0 - 8.0 . Performed by LC-MS/MS technology. Performed By: #### F [id number] #### [facility] [address] [place] [address] Dr. Dwight Waters BK VIRUS PCR QUANTon 022 BKV DNA QUANT PCR PLASMA Negative Normal Negative [facility] Comment on above: Result Comment: No B K DNA detected. . The linear range of the assay is 22 - 100,000,000 IU/mL. Performed By: #### U RTPCR #### [facility] [address] [place] [address] Dr. Dwight Waters Log10 BKV DNA Plasma Normal [facility] Comment on above: Performed By: #### U RTPCR #### [facility] [address] [place] [address] Dr. Dwight Waters ALBUMINon 08-14-2022 Albumin [Mass/Vol] 4.2 g/dL Normal 3.4-5.0 [facility] Comment on above: Performed By: #### F [id number] #### [facility] [address] [place] [address] Dr. Dwight Waters ALKALINE PHOSPHAon ALP [Catalytic activity/Vol] 92 U/L Normal 46-116 [facility] Comment on above: Performed By: #### C BC #### [facility] [address] [place] [address] Dr. Dwight Waters BILIRUBIN CONJUGATED (DIRECT )on 08-14-2022 BILI, CONJUGATED 0.3 mg/dL Critically high 0.0-0.2 [facility] Comment on above: Performed By: #### F [id number] #### [facility] [address] [place] [address] Dr. Dwight Waters BILIRUBIN TOTALon 08-14-2022 Bilirubin [Mass/Vol] 1.5 mg/dL Critically high 0.2-1.0 [facility] Comment on above: Performed By: #### F [id number] #### [facility] [address] [place] [address] Dr. Dwight Waters BUNon 08-14-2022 Urea nitrogen [Mass/Vol] 11.0 mg/dL Normal 7.0-18.0 [facility] Comment on above: Performed By: #### C BC #### [facility] [address] [place] [address] Dr. Dwight Waters CALCIUMon 08-14-2022 Calcium [Mass/Vol] 9.4 mg/dL Normal 8.5-10.1 [facility] Comment on above: Performed By: #### F [id number] #### [facility] [address] [place] [address] Dr. Dwight Waters CBC AUTO DIFFon 08-14-2022 BASO # 0.0 103/ul Normal 0.0-0.1 [facility] Comment on above: Performed By: #### C MP #### [facility] [address] [place] [address] Dr. Dwight Waters Basophils/100 WBC (Bld) 0.5 % Normal 0.2-2.0 [facility] Comment on above: Performed By: #### C MP #### [facility] [address] [place] [address] Dr. Dwight Waters EO # 0.2 103/ul Normal 0.0-0.7 [facility] Comment on above: Performed By: #### C MP #### [facility] [address] [place] [address] Dr. Dwight Waters Eosinophils/100 WBC (Bld) 2.6 % Normal 0.9-7.0 [facility] Comment on above: Performed By: #### C MP #### [facility] [address] [place] [address] Dr. Dwight Waters Erythrocyte distribution width (RBC) [Ratio] 13.1 % Normal 11.0-15.0 [facility] Comment on above: Performed By: #### C MP #### [facility] [address] [place] [address] Dr. Dwight Waters Hematocrit (Bld) [Volume fraction] 47.0 % Normal 42.0-54.0 [facility] Comment on above: Performed By: #### C MP #### [facility] [address] [place] [address] Dr. Dwight Waters Hemoglobin (Bld) [Mass/Vol] 15.3 g/dL Normal 14.0-18.0 [facility] Comment on above: Performed By: #### C MP #### [facility] [address] [place] [address] Dr. Dwight Waters IG # 0.01 10e3/ul Normal 0.00-0.03 [facility] Comment on above: Performed By: #### C MP #### [facility] [address] [place] [address] Dr. Dwight Waters IG % 0.1 % Normal 0.0-0.5 [facility] Comment on above: Performed By: #### C MP #### [facility] [address] [place] [address] Dr. Dwight Waters LYMPH # 2.3 103/ul Normal 1.2-3.8 [facility] Comment on above: Performed By: #### C MP #### [facility] [address] [place] [address] Dr. Dwight Waters Lymphocytes/100 WBC (Bld) 29.8 % Normal 20.5-60.0 [facility] Comment on above: Performed By: #### C MP #### [facility] [address] [place] [address] Dr. Dwight Waters MANUAL DIFF REQ NO Normal [facility] Comment on above: Performed By: #### C MP #### [facility] [address] [place] [address] Dr. Dwight Waters MCH (RBC) [Entitic mass] 28.2 pg Normal 25.9-34.0 [facility] Comment on above: Performed By: #### C MP #### [facility] [address] [place] [address] Dr. Dwight Waters MCHC (RBC) [Mass/Vol] 32.6 g/dL Normal 29.9-35.2 [facility] Comment on above: Performed By: #### C MP #### [facility] [address] [place] [address] Dr. Dwight Waters MCV (RBC) [Entitic vol] 86.7 fL Normal 80.0-94.0 [facility] Comment on above: Performed By: #### C MP #### [facility] [address] [place] [address] Dr. Dwight Waters MONO # 0.7 103/ul Normal 0.3-0.8 [facility] Comment on above: Performed By: #### C MP #### [facility] [address] [place] [address] Dr. Dwight Waters Monocytes/100 WBC (Bld) 8.5 % Normal 1.7-12.0 [facility] Comment on above: Performed By: #### C MP #### [facility] [address] [place] [address] Dr. Dwight Waters NEUT # 4.5 103/ul Normal 1.4-6.5 [facility] Comment on above: Performed By: #### C MP #### [facility] [address] [place] [address] Dr. Dwight Waters Neutrophils/100 WBC (Bld) 58.5 % Normal 43.0-75.0 [facility] Comment on above: Performed By: #### C MP #### [facility] [address] [place] [address] Dr. Dwight Waters Platelet mean volume (Bld) [Entitic vol] 9.7 fL Normal 9.5-13.5 [facility] Comment on above: Performed By: #### C MP #### [facility] [address] [address] [address] Dwight Waters PLT 266 103/ul Normal 150-450 [facility] Comment on above: Performed By: #### C MP #### [facility] [address] [address] [address] Dwight Waters RBC 5.42 106/ul Normal 4.70-6.10 [facility] Comment on above: Performed By: #### C MP #### [facility] [address] [place] [address] Dr. Dwight Waters WBC 7.6 103/ul Normal 4.0-11.0 [facility] Comment on above: Performed By: #### C MP #### [facility] [address] [place] [address] Dr. Dwight Waters CHLORIDEon 08-14-2022 Chloride [Moles/Vol] 104 mmol/L Normal 98-107 [facility] Comment on above: Performed By: #### C BC #### [facility] [address] [place] [address] Dr. Dwight Waters CO2on 08-14-2022 CO2 [Moles/Vol] 27.9 mmol/L Normal 21.0-32.0 [facility] Comment on above: Performed By: #### C BC #### [facility] [address] [place] [address] Dr. Dwight Waters CREATININEon 08-14-2022 Creatinine [Mass/Vol] 1.08 mg/dL Normal 0.70-1.30 [facility] Comment on above: Performed By: #### C BC #### [facility] [address] [place] [address] Dr. Dwight Waters EGFR-AF CYMRO >60 Normal >=60 [facility] Comment on above: Performed By: #### C BC #### [facility] [address] [place] [address] Dr. Dwight Waters EGFR-NON AF CYMRO >60 Normal >=60 [facility] Comment on above: Performed By: #### C BC #### [facility] [address] [place] [address] Dr. Dwight Waters GGTon 08-14-2022 Gamma glutamyl transferase [Catalytic activity/Vol] 24 U/L Normal 15-85 [facility] Comment on above: Performed By: #### F [id number] #### [facility] [address] [place] [address] Dr. Dwight Waters GLUCOSE BLOODon 08-14-2022 Glucose [Mass/Vol] 111 mg/dL Critically high 74-106 T [facility] Comment on above: Performed By: #### C BC #### [facility] [address] [place] [address] Dr. Dwight Waters MAGNESIUMon 08-14-2022 Magnesium [Mass/Vol] 1.4 mg/dL Critically low 1.8-2.4 [facility] Comment on above: Performed By: #### C BC #### [facility] [address] [place] [address] Dr. Dwight Waters NAon 08-14-2022 Sodium [Moles/Vol] 140 mmol/L Normal 136-145 [facility] Comment on above: Performed By: #### F [id number] #### [facility] [address] [place] [address] Dr. Dwight Waters PHOSPHORUSon 08-14-2022 Phosphate [Mass/Vol] 3.1 mg/dL Normal 2.6-4.7 [facility] Comment on above: Performed By: #### C BC #### [facility] [address] [place] [address] Dr. Dwight Waters POTASSIUMon 08-14-2022 Potassium [Moles/Vol] 3.5 mmol/L Normal 3.5-5.1 [facility] Comment on above: Performed By: #### C BC #### [facility] [address] [place] [address] Dr. Dwight Waters SGOTon 08-14-2022 AST [Catalytic activity/Vol] 17 U/L Normal 15-37 [facility] Comment on above: Performed By: #### F [id number] #### [facility] [address] [place] [address] Dr. Dw[facility]22 ALT [Catalytic activity/Vol] 22 U/L Normal 16-63 [facility] Comment on above: Performed By: #### F K506T #### [facility] [address] [place] [address] Dr. Dwight Waters URINE T PROTEIN CREAT RATIOo n 08-14-2022 Protein (U) [Mass/Vol] 10.7 mg/dL Normal <=12.0 [facility] Comment on above: Performed By: #### F K506T #### [facility] [address] [place] [address] Dr. Dwight Waters UR PROT CREAT RAT 0.10 Normal [facility] Comment on above: Performed By: #### F K506T #### [facility] [address] [place] [address] Dr. Dwight Waters URINE CREAT 104.28 mg/dL Normal 20.00-300.00 [facility] Comment on above: Performed By: #### F K506T #### [facility] [address] [place] [address] Dr. Dwight Waters NEPHROSTOMY TUBE REMOVALon 0 [...] Assisting physician present for entire procedure: yes [facility] Radiology Study observation (narrative) [facility] FK506 (TACROLIMUS) WHOLE BLO ODon 07-06-2022 Tacrolimus (FK506), Blood 9.5 ng/mL Normal 2.0-20.0 [facility] Comment on above: Result Comment: Trou gh (immediately following transplant) 15.0 . Trough (steady state, 2 weeks or more after transplant): 3.0 - 8.0 . Performed by LC-MS/MS technology. Performed By: #### C MP #### [facility] [address] [place] [address] Dr. Dwight Waters ALBUMINon 07-03-2022 Albumin [Mass/Vol] 3.7 g/dL Normal 3.4-5.0 [facility] Comment on above: Performed By: #### U RTPCR #### [facility] [address] [place] [address] Dr. Dwight Waters ALKALINE PHOSPHAon ALP [Catalytic activity/Vol] 76 U/L Normal 46-116 [facility] Comment on above: Performed By: #### U RTPCR #### [facility] [address] [place] [address] Dr. Dwight Waters BILIRUBIN CONJUGATED (DIRECT )on 07-03-2022 BILI, CONJUGATED 0.3 mg/dL Critically high 0.0-0.2 [facility] Comment on above: Performed By: #### C BC #### [facility] [address] [place] [address] Dr. Dwight Waters BILIRUBIN TOTALon 07-03-2022 Bilirubin [Mass/Vol] 1.4 mg/dL Critically high 0.2-1.0 [facility] Comment on above: Performed By: #### C BC #### [facility] [address] [place] [address] Dr. Dwight Waters BUNon 07-03-2022 Urea nitrogen [Mass/Vol] 15.0 mg/dL Normal 7.0-18.0 [facility] Comment on above: Performed By: #### C BC #### [facility] [address] [place] [address] Dr. Dwight Waters CALCIUMon 07-03-2022 Calcium [Mass/Vol] 9.4 mg/dL Normal 8.5-10.1 [facility] Comment on above: Performed By: #### U RTPCR #### [facility] [address] [place] [address] Dr. Dwight Waters CBC AUTO DIFFon 07-03-2022 BASO # 0.0 103/ul Normal 0.0-0.1 [facility] Comment on above: Performed By: #### U RTPCR #### [facility] [address] [place] [address] Dr. Dwight Waters Basophils/100 WBC (Bld) 0.6 % Normal 0.2-2.0 [facility] Comment on above: Performed By: #### U RTPCR #### [facility] [address] [place] [address] Dr. Dwight Waters EO # 0.2 103/ul Normal 0.0-0.7 [facility] Comment on above: Performed By: #### U RTPCR #### [facility] [address] [place] [address] Dr. Dwight Waters Eosinophils/100 WBC (Bld) 3.5 % Normal 0.9-7.0 [facility] Comment on above: Performed By: #### U RTPCR #### [facility] [address] [place] [address] Dr. Dwight Waters Erythrocyte distribution width (RBC) [Ratio] 12.9 % Normal 11.0-15.0 [facility] Comment on above: Performed By: #### U RTPCR #### [facility] [address] [place] [address] Dr. Dwight Waters Hematocrit (Bld) [Volume fraction] 44.2 % Normal 42.0-54.0 [facility] Comment on above: Performed By: #### U RTPCR #### [facility] [address] [address] [address] Dwight Waters Hemoglobin (Bld) [Mass/Vol] 14.6 g/dL Normal 14.0-18.0 [facility] Comment on above: Performed By: #### U RTPCR #### [facility] [address] [address] [address] Dwight Waters IG # 0.02 10e3/ul Normal 0.00-0.03 [facility] Comment on above: Performed By: #### U RTPCR #### [facility] [address] [address] [address] Dwight Waters IG % 0.3 % Normal 0.0-0.5 [facility] Comment on above: Performed By: #### U RTPCR #### [facility] [address] [place] [address] Dr. Dwight Waters LYMPH # 2.0 103/ul Normal 1.2-3.8 [facility] Comment on above: Performed By: #### U RTPCR #### [facility] [address] [place] [address] Dr. Dwight Waters Lymphocytes/100 WBC (Bld) 28.4 % Normal 20.5-60.0 [facility] Comment on above: Performed By: #### U RTPCR #### [facility] [address] [place] [address] Dr. Dwight Waters MANUAL DIFF REQ NO Normal [facility] Comment on above: Performed By: #### U RTPCR #### [facility] [address] [place] [address] Dr. Dwight Waters MCH (RBC) [Entitic mass] 28.6 pg Normal 25.9-34.0 [facility] Comment on above: Performed By: #### U RTPCR #### [facility] [address] [place] [address] Dr. Dwight Waters MCHC (RBC) [Mass/Vol] 33.0 g/dL Normal 29.9-35.2 [facility] Comment on above: Performed By: #### U RTPCR #### [facility] [address] [address] [address] Dwight Waters MCV (RBC) [Entitic vol] 86.7 fL Normal 80.0-94.0 [facility] Comment on above: Performed By: #### U RTPCR #### [facility] [address] [address] [address] Dwight Waters MONO # 0.6 103/ul Normal 0.3-0.8 [facility] Comment on above: Performed By: #### U RTPCR #### [facility] [address] [place] [address] Dr. Dwight Waters Monocytes/100 WBC (Bld) 9.1 % Normal 1.7-12.0 [facility] Comment on above: Performed By: #### U RTPCR #### [facility] [address] [place] [address] Dr. Dwight Waters NEUT # 4.0 103/ul Normal 1.4-6.5 [facility] Comment on above: Performed By: #### U RTPCR #### [facility] [address] [place] [address] Dr. Dwight Waters Neutrophils/100 WBC (Bld) 58.1 % Normal 43.0-75.0 [facility] Comment on above: Performed By: #### U RTPCR #### [facility] [address] [place] [address] Dr. Dwight Waters Platelet mean volume (Bld) [Entitic vol] 9.5 fL Normal 9.5-13.5 [facility] Comment on above: Performed By: #### U RTPCR #### [facility] [address] [place] [address] Dr. Dwight Waters PLT 292 103/ul Normal 150-450 [facility] Comment on above: Performed By: #### U RTPCR #### [facility] [address] [place] [address] Dr. Dwight Waters RBC 5.10 106/ul Normal 4.70-6.10 [facility] Comment on above: Performed By: #### U RTPCR #### [facility] [address] [address] [address] Dwight Waters WBC 6.9 103/ul Normal 4.0-11.0 [facility] Comment on above: Performed By: #### U RTPCR #### [facility] [address] [place] [address] Dr. Dwight Waters CHLORIDEon 07-03-2022 Chloride [Moles/Vol] 108 mmol/L Critically high 98-107 [facility] Comment on above: Performed By: #### C BC #### [facility] [address] [place] [address] Dr. Dwight Waters CO2on 07-03-2022 CO2 [Moles/Vol] 25.2 mmol/L Normal 21.0-32.0 [facility] Comment on above: Performed By: #### C BC #### [facility] [address] [place] [address] Dr. Dwight Waters CREATININEon 07-03-2022 Creatinine [Mass/Vol] 1.03 mg/dL Normal 0.70-1.30 [facility] Comment on above: Performed By: #### U RTPCR #### [facility] [address] [place] [address] Dr. Dwight Waters EGFR-AF CYMRO >60 Normal >=60 [facility] Comment on above: Performed By: #### U RTPCR #### [facility] [address] [place] [address] Dr. Dwight Waters EGFR-NON AF CYMRO >60 Normal >=60 [facility] Comment on above: Performed By: #### U RTPCR #### [facility] [address] [place] [address] Dr. Dwight Waters GGTon 07-03-2022 Gamma glutamyl transferase [Catalytic activity/Vol] 31 U/L Normal 15-85 [facility] Comment on above: Performed By: #### U RTPCR #### [facility] [address] [place] [address] Dr. Dwight Waters GLUCOSE BLOODon 07-03-2022 Glucose [Mass/Vol] 119 mg/dL Critically high 74-106 T [facility] Comment on above: Performed By: #### U RTPCR #### [facility] [address] [place] [address] Dr. Dwight Waters MAGNESIUMon 07-03-2022 Magnesium [Mass/Vol] 1.4 mg/dL Critically low 1.8-2.4 [facility] Comment on above: Performed By: #### C BC #### [facility] [address] [place] [address] Dr. Dwight Waters NAon 07-03-2022 Sodium [Moles/Vol] 142 mmol/L Normal 136-145 [facility] Comment on above: Performed By: #### C MP #### [facility] [address] [place] [address] Dr. Dwight Waters PHOSPHORUSon 07-03-2022 Phosphate [Mass/Vol] 3.4 mg/dL Normal 2.6-4.7 [facility] Comment on above: Performed By: #### C BC #### [facility] [address] [place] [address] Dr. Dwight Waters POTASSIUMon 07-03-2022 Potassium [Moles/Vol] 4.1 mmol/L Normal 3.5-5.1 [facility] Comment on above: Performed By: #### C BC #### [facility] [address] [place] [address] Dr. Dwight Waters SGOTon 07-03-2022 AST [Catalytic activity/Vol] 14 U/L Critically low 15-37 [facility] Comment on above: Performed By: #### C BC #### [facility] [address] [place] [address] Dr. wDight Waters SGPTon 07-03-2022 ALT [Catalytic activity/Vol] 25 U/L Normal 16-63 [facility] Comment on above: Performed By: #### C BC #### [facility] [address] [place] [address] Dr. Dwight Waters US KIDNEYSon 07-03-2022 US KIDNEYS Ultrasound kidneys, bilateral HISTORY: Transplant of kidney , pain in the right lower quadrant COMPARISON: None. TECHNIQUE: Transabdominal ultrasound imaging of both kidneys was performed. FINDINGS: The [place] kidneys are diffusely echogenic and atrophic with cortical thinning. The right kidney measures 8.3 x 3.5 x 4.07 m and the left measures 9.9 x 3.8 x 3.6 cm. No hydronephrosis of the [place] kidneys. There is a renal transplant in [...] stone involving the renal transplant. 2. Atrophic [place] kidneys. 3. Normal bladder. Electronically authenticated by: ARCELIA PIZARRO Date: 2022-07-03 17:[address] [facility] [address] Abdomen and Pelvis WO con traston 06-27-2022 IMPRESSION: 1. Both [place] kidneys are atrophic with improvement in right-sided [...] Adrenals: Adrenal glands are unremarkable. Kidneys: Both [place] kidneys are atrophic. Interval improvement in right [place] kidney hydronephrosis since May 15, 2022. Status [...] Adrenals: Adrenal glands are unremarkable. Kidneys: Both [place] kidneys are atrophic. Interval improvement in right [place] kidney hydronephrosis since May 15, 2022. Status [...] aggressive osseous lesions. IMPRESSION IMPRESSION: 1. Both [place] kidneys are atrophic with improvement in right-sided hydronephrosis since May 15, 2022. 2. 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 No hydronephrosis. No discrete perinephric collection. 3. Partially imaged postsurgical changes related to prior liver transplant. 4. The bladder is decompressed, limiting evaluation. [facility] Radiology Study observation (narrative) [facility] CT Abdomen and Pelvis WO con trastOrdered By: Gera Lu on 06-27-2022 [facility] Work Phone: CBC AUTO DIFFon 06-18-2022 BASO # 0.0 103/ul Normal 0.0-0.1 [facility] Comment on above: Performed By: #### U RTPCR #### [facility] [address] [address] [address] Dwight Waters Basophils/100 WBC (Bld) 0.5 % Normal 0.2-2.0 [facility] Comment on above: Performed By: #### U RTPCR #### [facility] [address] [address] [address] Dwight Waters EO # 0.2 103/ul Normal 0.0-0.7 [facility] Comment on above: Performed By: #### U RTPCR #### [facility] [address] [address] [address] Dwight Waters Eosinophils/100 WBC (Bld) 2.3 % Normal 0.9-7.0 [facility] Comment on above: Performed By: #### U RTPCR #### [facility] [address] [place] [address] Dr. Dwight Waters Erythrocyte distribution width (RBC) [Ratio] 12.9 % Normal 11.0-15.0 [facility] Comment on above: Performed By: #### U RTPCR #### [facility] [address] [place] [address] Dr. Dwight Waters Hematocrit (Bld) [Volume fraction] 41.2 % Critically low 42.0-54.0 [facility] Comment on above: Performed By: #### U RTPCR #### [facility] [address] [place] [address] Dr. Dwight Waters Hemoglobin (Bld) [Mass/Vol] 13.3 g/dL Critically low 14.0-18.0 [facility] Comment on above: Performed By: #### U RTPCR #### [facility] [address] [place] [address] Dr. Dwight Waters IG # 0.04 10e3/ul Critically high 0.00-0.03 [facility] Comment on above: Performed By: #### U RTPCR #### [facility] [address] [place] [address] Dr. Dwight Waters IG % 0.5 % Normal 0.0-0.5 [facility] Comment on above: Performed By: #### U RTPCR #### [facility] [address] [place] [address] Dr. Dwight Waters LYMPH # 2.0 103/ul Normal 1.2-3.8 [facility] Comment on above: Performed By: #### U RTPCR #### [facility] [address] [place] [address] Dr. Dwight Waters Lymphocytes/100 WBC (Bld) 22.9 % Normal 20.5-60.0 [facility] Comment on above: Performed By: #### U RTPCR #### [facility] [address] [place] [address] Dr. Dwight Waters MANUAL DIFF REQ NO Normal [facility] Comment on above: Performed By: #### U RTPCR #### [facility] [address] [address] [address] Dwihgt Waters MCH (RBC) [Entitic mass] 28.7 pg Normal 25.9-34.0 [facility] Comment on above: Performed By: #### U RTPCR #### [facility] [address] [place] [address] Dr. Dwight Waters MCHC (RBC) [Mass/Vol] 32.3 g/dL Normal 29.9-35.2 [facility] Comment on above: Performed By: #### U RTPCR #### [facility] [address] [place] [address] Dr. Dwight Waters MCV (RBC) [Entitic vol] 88.8 fL Normal 80.0-94.0 [facility] Comment on above: Performed By: #### U RTPCR #### [facility] [address] [place] [address] Dr. Dwight Waters MONO # 0.8 103/ul Normal 0.3-0.8 [facility] Comment on above: Performed By: #### U RTPCR #### [facility] [address] [place] [address] Dr. Dwight Waters Monocytes/100 WBC (Bld) 9.7 % Normal 1.7-12.0 [facility] Comment on above: Performed By: #### U RTPCR #### [facility] [address] [place] [address] Dr. Dwight Waters NEUT # 5.6 103/ul Normal 1.4-6.5 [facility] Comment on above: Performed By: #### U RTPCR #### [facility] [address] [place] [address] Dr. Dwight Waters Neutrophils/100 WBC (Bld) 64.1 % Normal 43.0-75.0 [facility] Comment on above: Performed By: #### U RTPCR #### [facility] [address] [place] [address] Dr. Dwight Waters Platelet mean volume (Bld) [Entitic vol] 10.0 fL Normal 9.5-13.5 [facility] Comment on above: Performed By: #### U RTPCR #### [facility] [address] [address] [address] Dwight Waters PLT 270 103/ul Normal 150-450 [facility] Comment on above: Performed By: #### U RTPCR #### [facility] [address] [address] [address] Dwight Waters RBC 4.64 106/ul Critically low 4.70-6.10 [facility] Comment on above: Performed By: #### U RTPCR #### [facility] [address] [address] [address] Dwight Waters WBC 8.7 103/ul Normal 4.0-11.0 [facility] Comment on above: Performed By: #### U RTPCR #### [facility] [address] [place] [address] Dr. Dwight Waters CULTURE URINEon 06-18-2022 CULTURE URINE Culture Observations : NO GROWTH. Normal [facility] Comment on above: Performed By: #### U RTPCR #### [facility] [address] [place] [address] Dr. Dwight Waters Covid-19 PCR ([facility] [facility] [employer]on 05-31 SARS-CoV-2 (COVID-19) RNA ESTELITA+probe Ql (Unsp spec) Not detected Normal NOT DETECTED [facility] Comment on above: Result Comment: When diagnostic [...] for this test is supported by the [place] of Health and Human Service's declaration that [...] used). Performed By: #### C BC #### [facility] [address] [place] [address] Dr. Dwight Waters ER URINE PROFILEon 2 Bilirubin Ql (U) Negative Normal NEGATIVE [facility] Comment on above: Performed By: #### U RTPCR #### [facility] [address] [place] [address] Dr. Dwight Waters Clarity (U) CLEAR Normal CLEAR [facility] Comment on above: Performed By: #### U RTPCR #### [facility] [address] [place] [address] Dr. Dwight Waters Color (U) YELLOW Normal YELLOW [facility] Comment on above: Performed By: #### U RTPCR #### [facility] [address] [place] [address] Dr. Dwight Waters ERUAHD A micrscopic examina tion will be performed if indicated. Normal [facility] Comment on above: Performed By: #### U RTPCR #### [facility] [address] [place] [address] Dr. Dwight Waters Glucose Ql (U) Negative Normal NEGATIVE [facility] Comment on above: Performed By: #### U RTPCR #### [facility] [address] [place] [address] Dr. Dwight Waters Hemoglobin Ql (U) LARGE Abnormal NEGATIVE [facility] Comment on above: Performed By: #### U RTPCR #### [facility] [address] [place] [address] Dr. Dwight Waters Ketones Ql (U) Negative Normal NEGATIVE [facility] Comment on above: Performed By: #### U RTPCR #### [facility] [address] [place] [address] Dr. Dwight Waters LEUKOCYTES TRACE Abnormal NEGATIVE [facility] Comment on above: Performed By: #### U RTPCR #### [facility] [address] [place] [address] Dr. Dwight Waters Nitrite Ql (U) Negative Normal NEGATIVE [facility] Comment on above: Performed By: #### U RTPCR #### [facility] [address] [place] [address] Dr. Dwight Waters pH (U) 6.0 [pH] Normal 5-9 [facility] Comment on above: Performed By: #### U RTPCR #### [facility] [address] [place] [address] Dr. Dwight Waters Protein (U) [Mass/Vol] 30 mg/dL Abnormal NEGATIVE/ TRACE [facility] Comment on above: Performed By: #### U RTPCR #### [facility] [address] [place] [address] Dr. Dwight Waters SPEC GRAVITY >=1.030 Abnormal 1.005-<=1.02 5 [facility] Comment on above: Performed By: #### U RTPCR #### [facility] [address] [place] [address] Dr. Dwight Waters UR MICRO IND INDICATED Normal [facility] Comment on above: Performed By: #### U RTPCR #### [facility] [address] [place] [address] Dr. Dwight Waters Urobilinogen Qn (U) 0.2 {Alyssa'U}/dL Normal 0.2 - 1. 0 [facility] Comment on above: Performed By: #### U RTPCR #### [facility] [address] [place] [address] Dr. Dwight Waters PROF 14(COMP METB)on 022 Albumin [Mass/Vol] 3.7 g/dL Normal 3.4-5.0 [facility] Comment on above: Performed By: #### C MP #### [facility] [address] [place] [address] Dr. Dwight Waters Albumin/Globulin [Mass ratio] 0.9 {ratio} Normal [facility] Comment on above: Performed By: #### C MP #### [facility] [address] [place] [address] Dr. Dwight Waters ALP [Catalytic activity/Vol] 80 U/L Normal 46-116 [facility] Comment on above: Performed By: #### C MP #### [facility] [address] [address] [address] Dwight Waters ALT [Catalytic activity/Vol] 24 U/L Normal 16-63 [facility] Comment on above: Performed By: #### C MP #### [facility] [address] [place] [address] Dr. Dwight Waters Anion gap [Moles/Vol] 12.9 mmol/L Normal [facility] Comment on above: Performed By: #### C MP #### [facility] [address] [address] [address] Dwight Waters AST [Catalytic activity/Vol] 17 U/L Normal 15-37 [facility] Comment on above: Performed By: #### C MP #### [facility] [address] [place] [address] Dr. Dwight Waters Bilirubin [Mass/Vol] 0.8 mg/dL Normal 0.2-1.0 [facility] Comment on above: Performed By: #### C MP #### [facility] [address] [place] [address] Dr. Dwight Waters Calcium [Mass/Vol] 9.4 mg/dL Normal 8.5-10.1 [facility] Comment on above: Performed By: #### C MP #### [facility] [address] [place] [address] Dr. Dwight Waters Chloride [Moles/Vol] 106 mmol/L Normal 98-107 [facility] Comment on above: Performed By: #### C MP #### [facility] [address] [address] [address] Dwight Waters CO2 [Moles/Vol] 25.3 mmol/L Normal 21.0-32.0 [facility] Comment on above: Performed By: #### C MP #### [facility] [address] [place] [address] Dr. Dwight Waters Creatinine [Mass/Vol] 1.29 mg/dL Normal 0.70-1.30 [facility] Comment on above: Performed By: #### C MP #### [facility] [address] [address] [address] Dwight Waters EGFR-AF CYMRO >60 Normal >=60 [facility] Comment on above: Performed By: #### C MP #### [facility] [address] [address] [address] Dwight Waters EGFR-NON AF CYMRO 59 mL/min/1.73m2 Critically low >=60 [facility] Comment on above: Performed By: #### C MP #### [facility] [address] [address] [address] Dwight Waters Globulin (S) [Mass/Vol] 4.2 g/dL Normal [facility] Comment on above: Performed By: #### C MP #### [facility] [address] [place] [address] Dr. Dwight Waters Glucose [Mass/Vol] 106 mg/dL Normal 74-106 [facility] Comment on above: Performed By: #### C MP #### [facility] [address] [address] [address] Dwight Waters Potassium [Moles/Vol] 4.2 mmol/L Normal 3.5-5.1 [facility] Comment on above: Performed By: #### C MP #### [facility] [address] [place] [address] Dr. Dwight Waters Protein [Mass/Vol] 7.9 g/dL Normal 6.4-8.2 [facility] Comment on above: Performed By: #### C MP #### [facility] [address] [place] [address] Dr. Dwight Waters Sodium [Moles/Vol] 140 mmol/L Normal 136-145 [facility] Comment on above: Performed By: #### C MP #### [facility] [address] [address] [address] Dwight Waters Urea nitrogen [Mass/Vol] 22.0 mg/dL Critically high 7.0-18.0 [facility] Comment on above: Performed By: #### C MP #### [facility] [address] [place] [address] Dr. Dwigth Waters Urea nitrogen/Creatinine [Mass ratio] 17.1 mg/mg Normal [facility] Comment on above: Performed By: #### C MP #### [facility] [address] [place] [address] Dr. Dwight Waters URINE MICROSCOPIC ONLYon BACTERIA TRACE Abnormal NONE SEEN [facility] Comment on above: Performed By: #### U RTPCR #### [facility] [address] [place] [address] Dr. Dwight Waters Bacteria identified Cx Nom (U) INDICATED Normal [facility] Comment on above: Performed By: #### U RTPCR #### [facility] [address] [place] [address] Dr. Dwight Waters CAST NONE SEEN Normal NONE SEEN [facility] Comment on above: Performed By: #### U RTPCR #### [facility] [address] [place] [address] Dr. Dwight Waters Crystals LM Nom (Urine sed) NONE SEEN Normal NONE SEEN [facility] Comment on above: Performed By: #### U RTPCR #### [facility] [address] [place] [address] Dr. Dwight Waters Epithelial cells LM Ql (Urine sed) NONE SEEN Normal NONE SEEN /RARE [facility] Comment on above: Performed By: #### U RTPCR #### [facility] [address] [place] [address] Dr. Dwight Waters MUCOUS NONE SEEN Normal NONE SEEN [facility] Comment on above: Performed By: #### U RTPCR #### [facility] [address] [place] [address] Dr. Dwight Waters RBC 5-10 Abnormal 0-2 [facility] Comment on above: Performed By: #### U RTPCR #### [facility] [address] [place] [address] Dr. Dwight Waters WBC 10-20 Abnormal NONE SEEN [facility] Comment on above: Performed By: #### U RTPCR #### [facility] [address] [place] [address] Dr. Dwight Waters ALLOSCREEN RECIPIENT (POST T X PRA)on 06-13-2022 AB SPECIFICITY CLASS COMMENT Antibody Specificity testing performed by [employer]. cPRA calculation based on identification of HLA antibody specificities at MFI >2000 and/or presence of CREG antibodies. [facility] Comment on above: Some of the reagents used for testing in the Clinical Histocompatibility Laboratory have yet to be approved by the FDA. Our certification by CLIA to perform high complexity tests allows us to use these reagents in the context of a stringent QC program, and obviates the need for FDA approval.Testing performed by the [facility] Clinical Histocompatibility Laboratory. [facility] number: [id number]. CLIA number: [id number], Director: Carlito Merchant, PhD, D([facility]). ANTIBODY SPECIFICITY INTERPRETATION Detected [facility] CLASS I SPECIFICITIES Not detected [facility] CLASS II SPECIFICITIES Not detected [facility] HLA Ab (S) 0 % 0 [facility] EXTRA MICROon 06-13-2022 [facility] URINE CULTUREOrdered By: Jah Upton on 06-13-2022 Bacteria identified Cx Nom (Unsp spec) Growth [facility] Bacteria identified Cx Nom (Unsp spec) 10,000-50,000 CFU/mL Mixed skin shimon [facility] Comment on above: Multiple bacterial m orphotypes present. Suggest appropriate recollection if clinically indicated. [facility] CBC,PLATELETSon 06-12-2022 Erythrocyte distribution width (RBC) [Ratio] 13.0 % 10.9 - 14.3 % [facility] Hematocrit (Bld) [Volume fraction] 43.2 % 39.6 - 48.8 % [facility] Hemoglobin (Bld) [Mass/Vol] 13.9 g/dL 13.4 - 16.8 g/dL [facility] Interpretation and review of laboratory results Normal [facility] MCH (RBC) [Entitic mass] 28.7 pg 26.1 - 33.3 pg [facility] MCHC (RBC) [Mass/Vol] 32.2 g/dL 31.9 - 36.5 g/dL [facility] MCV (RBC) [Entitic vol] 89.1 fL 79.0 - 94.5 fL [facility] Platelet mean volume (Bld) [Entitic vol] 10.5 fL 8.7 - 12.3 fL [facility] Platelets (Bld) [#/Vol] 269 10*3/uL 146 - 337 K/uL [facility] RBC (Bld) [#/Vol] 4.85 10*6/uL [facility] WBC (Bld) [#/Vol] 7.68 10*3/uL 3.73 - 10. 10 K/uL [facility] CHEM 7 (LYTES,BUN,CREA,GLUC) on 06-12-2022 Anion gap [Moles/Vol] 14 mmol/L 7 - 17 mmol/L [facility] Chloride [Moles/Vol] 106 mmol/L 98 - 10 8 mmol/L [facility] CO2 [Moles/Vol] 25 mmol/L 21 - 31 mmol/L [facility] Creatinine [Mass/Vol] 1.26 mg/dL 0.70 - 1.30 mg/dL [facility] GFR/1.73 sq M.predicted CKD-EPI (S/P/Bld) [Vol rate/Area] 69 >=60 mL/min/1.73m 2 [facility] Comment on above: Reported eGFR is bas ed on the CKD-EPI 2020 equation using creatinine, age, and sex. Glucose [Mass/Vol] 83 mg/dL 70 - 99 mg/dL [facility] Osmolality Calc [Osmolality] 295 [facility] Potassium [Moles/Vol] 3.8 mmol/L 3.5 - 5.0 mmol/L [facility] Sodium [Moles/Vol] 141 mmol/L 135 - 145 mmol/L [facility] Urea nitrogen [Mass/Vol] 18 mg/dL 7 - 25 mg/dL [facility] Urea nitrogen/Creatinine [Mass ratio] 14 mg/mg [facility] GGTon 07-14-2022 Gamma glutamyl transferase [Catalytic activity/Vol] 20 U/L 8 - 64 U/L [facility] HEMOGLOBIN [id number] By: Link Roche on 06-12-2022 Average glucose Estimated from glycated hemoglobin (Bld) [Mass/Vol] 126 mg/dL [facility] HbA1c (Bld) [Mass fraction] 6.0 % High 4.7 - 5.6 % [facility] Interpretation and review of laboratory results Abnormal [facility] HEPATIC FUNCTION PANELon Albumin [Mass/Vol] 4.3 g/dL 3.5 - 5.0 g/dL [facility] ALP [Catalytic activity/Vol] 78 U/L 32 - 126 U/L [facility] ALT [Catalytic activity/Vol] 12 U/L 10 - 52 U/L [facility] AST [Catalytic activity/Vol] 16 U/L 10 - 39 U/L [facility] Bilirubin [Mass/Vol] 1.0 mg/dL <1.5 [facility] Bilirubin.direct [Mass/Vol] 0.2 mg/dL <0.3 [facility] Protein [Mass/Vol] 7.5 g/dL 6.4 - 8.3 g/dL [facility] No Panel Informationon 06-12 Interpretation and review of laboratory results Normal [facility] PTH INTACTOrdered By: Marli Lizarraga on 06-12-2022 Interpretation and review of laboratory results Abnormal [facility] Parathyrin.intact [Mass/Vol] 79.7 pg/mL High 14.0 - 72.0 pg/mL [facility] URINALYSIS REFLEX TO CULTURE PERFORMABLEon 06-12-2022 Appearance (U) Clear Clear [facility] Bacteria LM Ql (Urine sed) ABSENT ABSENT [facility] Color (U) Yellow Yellow [facility] Epithelial cells.squamous LM Ql (Urine sed) 1/hpf = 1+ 1/hpf = 1+, 2-5/hpf = 2+, 0/hpf = 0+, ABSENT [facility] Glucose Test strip (U) [Mass/Vol] Negative Negative [facility] Interpretation and review of laboratory results Abnormal [facility] Ketones (U) [Mass/Vol] Trace Abnormal Negative [facility] Leukocyte esterase Test strip Ql (U) Small Abnormal Negative [facility] Nitrite Ql (U) Negative Negative [facility] pH (U) 5.5 [pH] 5.0 - 7.0 [facility] Protein (U) [Mass/Vol] 30 mg/dL Abnormal Negative [facility] RBC (U) [#/Vol] Trace Abnormal Negative [facility] RBC LM.HPF (Urine sed) [#/Area] 0-2 0 - 2 /HPF [facility] Specific gravity (U) [Rel density] 1.026 [facility] Urobilinogen (U) [Mass/Vol] 0.2 E.U./dL 0.2 E.U/dL, 1.0 E.U/dL [facility] WBC LM.HPF (Urine sed) [#/Area] 10-20 Abnormal 0 - 5 /HPF [facility] URINE PROTEIN/CREA RATIO, RA NDOMon 06-12-2022 Creatinine (24H U) [Mass/Vol] 231.68 mg/dL [facility] Protein Unsp time (U) [Mass/Vol] 49 mg/dL [facility] Protein/Creatinine (U) [Mass ratio] 0.211 mg/g [facility] FK506 (TACROLIMUS) WHOLE BLO ODon 06-09-2022 Tacrolimus (FK506), Blood 9.8 ng/mL Normal 2.0-20.0 [facility] Comment on above: Result Comment: Trou gh (immediately following transplant) 15.0 . Trough (steady state, 2 weeks or more after transplant): 3.0 - 8.0 . Performed by LC-MS/MS technology. Performed By: #### U RTPCR #### [facility] [address] [place] [address] Dr. Dwight Waters ALBUMINon 06-06-2022 Albumin [Mass/Vol] 3.8 g/dL Normal 3.4-5.0 [facility] Comment on above: Performed By: #### C MP #### [facility] [address] [place] [address] Dr. Dwight Waters ALKALINE PHOSPHAon ALP [Catalytic activity/Vol] 82 U/L Normal 46-116 [facility] Comment on above: Performed By: #### C MP #### [facility] [address] [place] [address] Dr. Dwight Waters BILIRUBIN CONJUGATED (DIRECT )on 06-06-2022 BILI, CONJUGATED 0.2 mg/dL Normal 0.0-0.2 [facility] Comment on above: Performed By: #### C BC #### [facility] [address] [place] [address] Dr. Dwight Waters BILIRUBIN TOTALon 06-06-2022 Bilirubin [Mass/Vol] 1.0 mg/dL Normal 0.2-1.0 [facility] Comment on above: Performed By: #### C BC #### [facility] [address] [place] [address] Dr. Dwight Waters BUNon 06-06-2022 Urea nitrogen [Mass/Vol] 18.0 mg/dL Normal 7.0-18.0 [facility] Comment on above: Performed By: #### C BC #### [facility] [address] [place] [address] Dr. Dwight Waters CALCIUMon 06-06-2022 Calcium [Mass/Vol] 9.4 mg/dL Normal 8.5-10.1 [facility] Comment on above: Performed By: #### C MP #### [facility] [address] [place] [address] Dr. Dwight Waters CBC AUTO DIFFon 06-06-2022 BASO # 0.1 103/ul Normal 0.0-0.1 [facility] Comment on above: Performed By: #### U RTPCR #### [facility] [address] [place] [address] Dr. Dwight Waters Basophils/100 WBC (Bld) 0.8 % Normal 0.2-2.0 [facility] Comment on above: Performed By: #### U RTPCR #### [facility] [address] [place] [address] Dr. Dwight Waters EO # 0.3 103/ul Normal 0.0-0.7 [facility] Comment on above: Performed By: #### U RTPCR #### [facility] [address] [place] [address] Dr. Dwight Waters Eosinophils/100 WBC (Bld) 3.3 % Normal 0.9-7.0 [facility] Comment on above: Performed By: #### U RTPCR #### [facility] [address] [place] [address] Dr. Dwight Waters Erythrocyte distribution width (RBC) [Ratio] 12.4 % Normal 11.0-15.0 [facility] Comment on above: Performed By: #### U RTPCR #### [facility] [address] [place] [address] Dr. Dwight Waters Hematocrit (Bld) [Volume fraction] 45.1 % Normal 42.0-54.0 [facility] Comment on above: Performed By: #### U RTPCR #### [facility] [address] [place] [address] Dr. Dwight Waters Hemoglobin (Bld) [Mass/Vol] 14.4 g/dL Normal 14.0-18.0 [facility] Comment on above: Performed By: #### U RTPCR #### [facility] [address] [place] [address] Dr. Dwight Waters IG # 0.01 10e3/ul Normal 0.00-0.03 [facility] Comment on above: Performed By: #### U RTPCR #### [facility] [address] [place] [address] Dr. Dwight Waters IG % 0.1 % Normal 0.0-0.5 [facility] Comment on above: Performed By: #### U RTPCR #### [facility] [address] [place] [address] Dr. Dwight Waters LYMPH # 2.2 103/ul Normal 1.2-3.8 [facility] Comment on above: Performed By: #### U RTPCR #### [facility] [address] [place] [address] Dr. Dwight Waters Lymphocytes/100 WBC (Bld) 30.0 % Normal 20.5-60.0 [facility] Comment on above: Performed By: #### U RTPCR #### [facility] [address] [place] [address] Dr. Dwight Waters MANUAL DIFF REQ NO Normal [facility] Comment on above: Performed By: #### U RTPCR #### [facility] [address] [place] [address] Dr. Dwight Waters MCH (RBC) [Entitic mass] 28.2 pg Normal 25.9-34.0 [facility] Comment on above: Performed By: #### U RTPCR #### [facility] [address] [place] [address] Dr. Dwight Waters MCHC (RBC) [Mass/Vol] 31.9 g/dL Normal 29.9-35.2 [facility] Comment on above: Performed By: #### U RTPCR #### [facility] [address] [place] [address] Dr. Dwight Waters MCV (RBC) [Entitic vol] 88.3 fL Normal 80.0-94.0 [facility] Comment on above: Performed By: #### U RTPCR #### [facility] [address] [place] [address] Dr. Dwight Waters MONO # 0.6 103/ul Normal 0.3-0.8 [facility] Comment on above: Performed By: #### U RTPCR #### [facility] [address] [place] [address] Dr. Dwight Waters Monocytes/100 WBC (Bld) 8.2 % Normal 1.7-12.0 [facility] [facility] Comment on above: Performed By: #### U RTPCR #### [facility] [address] [place] [address] Dr. Dwight Waters NEUT # 4.3 103/ul Normal 1.4-6.5 [facility] Comment on above: Performed By: #### U RTPCR #### [facility] [address] [place] [address] Dr. Dwight Waters Neutrophils/100 WBC (Bld) 57.6 % Normal 43.0-75.0 [facility] Comment on above: Performed By: #### U RTPCR #### [facility] [address] [place] [address] Dr. Dwight Waters Platelet mean volume (Bld) [Entitic vol] 9.7 fL Normal 9.5-13.5 [facility] Comment on above: Performed By: #### U RTPCR #### [facility] [address] [place] [address] Dr. Dwight Waters PLT 297 103/ul Normal 150-450 [facility] Comment on above: Performed By: #### U RTPCR #### [facility] [address] [place] [address] Dr. Dwight Waters RBC 5.11 106/ul Normal 4.70-6.10 [facility] Comment on above: Performed By: #### U RTPCR #### [facility] [address] [place] [address] Dr. Dwight Waters WBC 7.5 103/ul Normal 4.0-11.0 [facility] Comment on above: Performed By: #### U RTPCR #### [facility] [address] [place] [address] Dr. Dwight Waters CHLORIDEon 06-06-2022 Chloride [Moles/Vol] 107 mmol/L Normal 98-107 [facility] Comment on above: Performed By: #### C BC #### [facility] [address] [place] [address] Dr. Dwight Waters CO2on 06-06-2022 CO2 [Moles/Vol] 27.4 mmol/L Normal 21.0-32.0 [facility] Comment on above: Performed By: #### C BC #### [facility] [address] [place] [address] Dr. Dwight Waters CREATININEon 06-06-2022 Creatinine [Mass/Vol] 1.20 mg/dL Normal 0.70-1.30 [facility] Comment on above: Performed By: #### C BC #### [facility] [address] [place] [address] Dr. Dwight Waters EGFR-AF CYMRO >60 Normal >=60 [facility] Comment on above: Performed By: #### C BC #### [facility] [address] [place] [address] Dr. Dwight Waters EGFR-NON AF CYMRO >60 Normal >=60 [facility] Comment on above: Performed By: #### C BC #### [facility] [address] [place] [address] Dr. Dwight Waters GGTon 06-06-2022 Gamma glutamyl transferase [Catalytic activity/Vol] 29 U/L Normal 15-85 [facility] Comment on above: Performed By: #### C BC #### [facility] [address] [place] [address] Dr. Dwight Waters GLUCOSE BLOODon 06-06-2022 Glucose [Mass/Vol] 112 mg/dL Critically high 74-106 T [facility] Comment on above: Performed By: #### C BC #### [facility] [address] [place] [address] Dr. Dwight Waters MAGNESIUMon 06-06-2022 Magnesium [Mass/Vol] 1.3 mg/dL Critically low 1.8-2.4 [facility] Comment on above: Performed By: #### C MP #### [facility] [address] [place] [address] Dr. Dwight Waters NAon 06-06-2022 Sodium [Moles/Vol] 141 mmol/L Normal 136-145 [facility] Comment on above: Performed By: #### C MP #### [facility] [address] [place] [address] Dr. Dwight Waters PHOSPHORUSon 06-06-2022 Phosphate [Mass/Vol] 3.1 mg/dL Normal 2.6-4.7 [facility] Comment on above: Performed By: #### C MP #### [facility] [address] [address] [address] Dwight Waters POTASSIUMon 06-06-2022 Potassium [Moles/Vol] 4.3 mmol/L Normal 3.5-5.1 [facility] Comment on above: Performed By: #### C BC #### [facility] [address] [address] [address] Dwight Waters SGOTon 06-06-2022 AST [Catalytic activity/Vol] 16 U/L Normal 15-37 [facility] Comment on above: Performed By: #### C BC #### [facility] [address] [address] [address] Dwight Waters SGPTon 06-06-2022 ALT [Catalytic activity/Vol] 50 U/L Normal 16-63 [facility] Comment on above: Performed By: #### C BC #### [facility] [address] [place] [address] Dr. Dwight Waters Bacteria identified Cx Nom ( Bld)on 05-21-2022 Bacteria identified Cx Nom (Unsp spec) NO GROWTH DAY 5 OF 5 [facility] Results may be compr omised due to volume of BACT\ALERT bottle exceeding 10mLs . The optimal blood volume is 8-10 mls per aerobic/anaerobic blood culture bottle. [facility] CALCIUMon 05-20-2022 Calcium [Mass/Vol] 9.1 mg/dL 8.6 - 10. 5 mg/dL [facility] CBC,PLATELETSon 05-20-2022 Erythrocyte distribution width (RBC) [Ratio] 12.5 % 10.9 - 14.3 % [facility] Hematocrit (Bld) [Volume fraction] 37.1 % Low 39.6 - 48.8 % [facility] Hemoglobin (Bld) [Mass/Vol] 12.3 g/dL Low 13.4 - 16.8 g/dL [facility] Interpretation and review of laboratory results Abnormal [facility] MCH (RBC) [Entitic mass] 28.9 pg 26.1 - 33.3 pg [facility] MCHC (RBC) [Mass/Vol] 33.2 g/dL 31.9 - 36.5 g/dL [facility] MCV (RBC) [Entitic vol] 87.3 fL 79.0 - 94.5 fL [facility] Platelet mean volume (Bld) [Entitic vol] 9.9 fL 8.7 - 12.3 fL [facility] Platelets (Bld) [#/Vol] 234 10*3/uL 146 - 337 K/uL [facility] RBC (Bld) [#/Vol] 4.25 10*6/uL Low [facility] WBC (Bld) [#/Vol] 6.31 10*3/uL 3.73 - 10. 10 K/uL [facility] CHEM 7 (LYTES,BUN,CREA,GLUC) on 05-20-2022 Anion gap [Moles/Vol] 15 mmol/L 7 - 17 mmol/L [facility] Chloride [Moles/Vol] 111 mmol/L High 98 - 10 8 mmol/L [facility] CO2 [Moles/Vol] 22 mmol/L 21 - 31 mmol/L [facility] Creatinine [Mass/Vol] 1.10 mg/dL 0.70 - 1.30 mg/dL [facility] GFR/1.73 sq M.predicted CKD-EPI (S/P/Bld) [Vol rate/Area] 81 >=60 mL/min/1.73m 2 [facility] Comment on above: Reported eGFR is bas ed on the CKD-EPI 2020 equation using creatinine, age, and sex. Glucose [Mass/Vol] 92 mg/dL 70 - 99 mg/dL [facility] Interpretation and review of laboratory results Abnormal [facility] Osmolality Calc [Osmolality] 302 [facility] Potassium [Moles/Vol] 4.4 mmol/L 3.5 - 5.0 mmol/L [facility] Sodium [Moles/Vol] 144 mmol/L 135 - 145 mmol/L [facility] Urea nitrogen [Mass/Vol] 18 mg/dL 7 - 25 mg/dL [facility] Urea nitrogen/Creatinine [Mass ratio] 16 mg/mg [facility] MAGNESIUMon 05-20-2022 Interpretation and review of laboratory results Abnormal [facility] Magnesium [Mass/Vol] 1.5 mg/dL Low 1.6 - 2 .6 mg/dL [facility] No Panel Informationon 05-20 Interpretation and review of laboratory results Normal [facility] PHOSPHATE, INORGANICon 05-20 Phosphate [Mass/Vol] 3.3 mg/dL 2.2 - 4 .6 mg/dL [facility] RF Unspecified body region V [...] projections of kidneys, ureters, and bladder. FINDINGS: Investigation Division Captain images: Investigation Division Captain radiographs of the abdomen reveal a nonobstructive [...] Contrast refluxes up the ureter to the [place] right kidney that is grossly normal appearing. [...] projections of kidneys, ureters, and bladder. FINDINGS: Investigation Division Captain images: Investigation Division Captain radiographs of the abdomen reveal a nonobstructive [...] Contrast refluxes up the ureter to the [place] right kidney that is grossly normal appearing. [...] I have reviewed and approved this report. [facility] Radiology Study observation (narrative) [facility] RF Unspecified body region V iews during surgeryOrdered By: Lizz Campos on 05-20-2022 [facility] Work Phone: CALCIUMon 05-19-2022 Calcium [Mass/Vol] 9.2 mg/dL 8.6 - 10. 5 mg/dL [facility] Calcium [Mass/Vol] 8.6 mg/dL 8.6 - 10. 5 mg/dL [facility] CBC,PLATELETSon 05-19-2022 Erythrocyte distribution width (RBC) [Ratio] 12.4 % 10.9 - 14.3 % [facility] Hematocrit (Bld) [Volume fraction] 38.0 % Low 39.6 - 48.8 % [facility] Hemoglobin (Bld) [Mass/Vol] 12.0 g/dL Low 13.4 - 16.8 g/dL [facility] Interpretation and review of laboratory results Abnormal [facility] MCH (RBC) [Entitic mass] 28.6 pg 26.1 - 33.3 pg [facility] MCHC (RBC) [Mass/Vol] 31.6 g/dL Low 31.9 - 36.5 g/dL [facility] MCV (RBC) [Entitic vol] 90.5 fL 79.0 - 94.5 fL [facility] Platelet mean volume (Bld) [Entitic vol] 9.7 fL 8.7 - 12.3 fL [facility] Platelets (Bld) [#/Vol] 199 10*3/uL 146 - 337 K/uL [facility] RBC (Bld) [#/Vol] 4.20 10*6/uL Low [facility] WBC (Bld) [#/Vol] 6.81 10*3/uL 3.73 - 10. 10 K/uL [facility] CHEM 7 (LYTES,BUN,CREA,GLUC) on 05-19-2022 Anion gap [Moles/Vol] 13 mmol/L 7 - 17 mmol/L [facility] Chloride [Moles/Vol] 105 mmol/L 98 - 10 8 mmol/L [facility] CO2 [Moles/Vol] 30 mmol/L 21 - 31 mmol/L [facility] Creatinine [Mass/Vol] 1.39 mg/dL High 0.70 - 1.30 mg/dL [facility] GFR/1.73 sq M.predicted CKD-EPI (S/P/Bld) [Vol rate/Area] 61 >=60 mL/min/1.73m 2 [facility] Comment on above: Reported eGFR is bas ed on the CKD-EPI 2021 equation using creatinine, age, and sex. Glucose [Mass/Vol] 121 mg/dL High 70 - 99 mg/dL [facility] Interpretation and review of laboratory results Abnormal [facility] Osmolality Calc [Osmolality] 303 [facility] Potassium [Moles/Vol] 3.8 mmol/L 3.5 - 5.0 mmol/L [facility] Sodium [Moles/Vol] 144 mmol/L 135 - 145 mmol/L [facility] Urea nitrogen [Mass/Vol] 18 mg/dL 7 - 25 mg/dL [facility] Urea nitrogen/Creatinine [Mass ratio] 13 mg/mg [facility] Anion gap [Moles/Vol] 15 mmol/L 7 - 17 mmol/L [facility] Chloride [Moles/Vol] 106 mmol/L 98 - 10 8 mmol/L [facility] CO2 [Moles/Vol] 24 mmol/L 21 - 31 mmol/L [facility] Creatinine [Mass/Vol] 1.46 mg/dL High 0.70 - 1.30 mg/dL [facility] GFR/1.73 sq M.predicted CKD-EPI (S/P/Bld) [Vol rate/Area] 58 Low >=60 mL/min/1.73m 2 [facility] Comment on above: Reported eGFR is bas ed on the CKD-EPI 2021 equation using creatinine, age, and sex. Glucose [Mass/Vol] 103 mg/dL High 70 - 99 mg/dL [facility] Interpretation and review of laboratory results Abnormal [facility] Osmolality Calc [Osmolality] 298 [facility] Potassium [Moles/Vol] 3.9 mmol/L 3.5 - 5.0 mmol/L [facility] Sodium [Moles/Vol] 141 mmol/L 135 - 145 mmol/L [facility] Urea nitrogen [Mass/Vol] 21 mg/dL 7 - 25 mg/dL [facility] Urea nitrogen/Creatinine [Mass ratio] 14 mg/mg [facility] MAGNESIUMon 05-19-2022 Magnesium [Mass/Vol] 2.0 mg/dL 1.6 - 2 .6 mg/dL [facility] Magnesium [Mass/Vol] 1.7 mg/dL 1.6 - 2 .6 mg/dL [facility] No Panel Informationon 05-19 Interpretation and review of laboratory results Normal [facility] Interpretation and review of laboratory results Normal [facility] PHOSPHATE, INORGANICon 05-19 Phosphate [Mass/Vol] 3.0 mg/dL 2.2 - 4 .6 mg/dL [facility] Phosphate [Mass/Vol] 2.7 mg/dL 2.2 - 4 .6 mg/dL [facility] CALCIUMon 05-18-2022 Calcium [Mass/Vol] 9.1 mg/dL 8.6 - 10. 5 mg/dL [facility] CBC,PLATELETSon 05-18-2022 Erythrocyte distribution width (RBC) [Ratio] 12.5 % 10.9 - 14.3 % [facility] Hematocrit (Bld) [Volume fraction] 37.3 % Low 39.6 - 48.8 % [facility] Hemoglobin (Bld) [Mass/Vol] 11.9 g/dL Low 13.4 - 16.8 g/dL [facility] Interpretation and review of laboratory results Abnormal [facility] MCH (RBC) [Entitic mass] 28.9 pg 26.1 - 33.3 pg [facility] MCHC (RBC) [Mass/Vol] 31.9 g/dL 31.9 - 36.5 g/dL [facility] MCV (RBC) [Entitic vol] 90.5 fL 79.0 - 94.5 fL [facility] Platelet mean volume (Bld) [Entitic vol] 10.1 fL 8.7 - 12.3 fL [facility] Platelets (Bld) [#/Vol] 189 10*3/uL 146 - 337 K/uL [facility] RBC (Bld) [#/Vol] 4.12 10*6/uL Low [facility] WBC (Bld) [#/Vol] 10.19 10*3/uL High 3.73 - 10 .10 K/uL [facility] CHEM 7 (LYTES,BUN,CREA,GLUC) on 05-18-2022 Anion gap [Moles/Vol] 13 mmol/L 7 - 17 mmol/L [facility] Chloride [Moles/Vol] 102 mmol/L 98 - 10 8 mmol/L [facility] CO2 [Moles/Vol] 26 mmol/L 21 - 31 mmol/L [facility] Creatinine [Mass/Vol] 1.91 mg/dL High 0.70 - 1.30 mg/dL [facility] GFR/1.73 sq M.predicted CKD-EPI (S/P/Bld) [Vol rate/Area] 42 Low >=60 mL/min/1.73m 2 [facility] Comment on above: Reported eGFR is bas ed on the CKD-EPI 2020 equation using creatinine, age, and sex. Glucose [Mass/Vol] 158 mg/dL High 70 - 99 mg/dL [facility] Osmolality Calc [Osmolality] 297 [facility] Potassium [Moles/Vol] 4.0 mmol/L 3.5 - 5.0 mmol/L [facility] Sodium [Moles/Vol] 137 mmol/L 135 - 145 mmol/L [facility] Urea nitrogen [Mass/Vol] 30 mg/dL High 7 - 25 mg/dL [facility] Urea nitrogen/Creatinine [Mass ratio] 16 mg/mg [facility] CHEM 7 (LYTES,BUN,CREA,GLUC) Ordered By: Tamiko Thapa on 05-18-2022 Anion gap [Moles/Vol] 13 mmol/L 7 - 17 mmol/L [facility] Chloride [Moles/Vol] 104 mmol/L 98 - 10 8 mmol/L [facility] CO2 [Moles/Vol] 26 mmol/L 21 - 31 mmol/L [facility] Creatinine [Mass/Vol] 2.96 mg/dL High 0.70 - 1.30 mg/dL [facility] GFR/1.73 sq M.predicted CKD-EPI (S/P/Bld) [Vol rate/Area] 25 Low >=60 mL/min/1.73m 2 [facility] Comment on above: Reported eGFR is bas ed on the CKD-EPI 2020 equation using creatinine, age, and sex. Glucose [Mass/Vol] 136 mg/dL High 70 - 99 mg/dL [facility] Interpretation and review of laboratory results Abnormal [facility] Osmolality Calc [Osmolality] 304 [facility] Potassium [Moles/Vol] 4.2 mmol/L 3.5 - 5.0 mmol/L [facility] Sodium [Moles/Vol] 139 mmol/L 135 - 145 mmol/L [facility] Urea nitrogen [Mass/Vol] 41 mg/dL High 7 - 25 mg/dL [facility] Urea nitrogen/Creatinine [Mass ratio] 14 mg/mg [facility] MAGNESIUMon 05-18-2022 Magnesium [Mass/Vol] 2.2 mg/dL 1.6 - 2 .6 mg/dL [facility] Interpretation and review of laboratory results Normal [facility] Magnesium [Mass/Vol] 1.7 mg/dL 1.6 - 2 .6 mg/dL [facility] No Panel Informationon 05-18 Interpretation and review of laboratory results Abnormal [facility] Interpretation and review of laboratory results Normal [facility] PHOSPHATE, INORGANICon 05-18 Phosphate [Mass/Vol] 2.0 mg/dL Low 2.2 - 4 .6 mg/dL [facility] Interpretation and review of laboratory results Normal [facility] Phosphate [Mass/Vol] 2.8 mg/dL 2.2 - 4 .6 mg/dL [facility] PT,INR,PTTon 05-18-2022 aPTT Coag (PPP) [Time] 31.0 s [facility] INR Coag (Bld) [Relative time] 1.1 {INR} [facility] Interpretation and review of laboratory results Abnormal [facility] PT Coag (PPP) [Time] 14.4 s High [facility] URINE CULTUREOrdered By: Sylvia Campos on 05-18-2022 Bacteria identified Cx Nom (Unsp spec) No Growth [facility] CBC,PLATELETSon 05-17-2022 Erythrocyte distribution width (RBC) [Ratio] 12.8 % 10.9 - 14.3 % [facility] Hematocrit (Bld) [Volume fraction] 42.8 % 39.6 - 48.8 % [facility] Hemoglobin (Bld) [Mass/Vol] 13.3 g/dL Low 13.4 - 16.8 g/dL [facility] Interpretation and review of laboratory results Abnormal [facility] MCH (RBC) [Entitic mass] 28.9 pg 26.1 - 33.3 pg [facility] MCHC (RBC) [Mass/Vol] 31.1 g/dL Low 31.9 - 36.5 g/dL [facility] MCV (RBC) [Entitic vol] 92.8 fL 79.0 - 94.5 fL [facility] Platelet mean volume (Bld) [Entitic vol] 10.3 fL 8.7 - 12.3 fL [facility] Platelets (Bld) [#/Vol] 188 10*3/uL 146 - 337 K/uL [facility] RBC (Bld) [#/Vol] 4.61 10*6/uL [facility] WBC (Bld) [#/Vol] 16.61 10*3/uL High 3.73 - 10 .10 K/uL [facility] CHEM 7 (LYTES,BUN,CREA,GLUC) Ordered By: Kaylah Mc on 05-17-2022 Anion gap [Moles/Vol] 15 mmol/L 7 - 17 mmol/L [facility] Chloride [Moles/Vol] 103 mmol/L 98 - 10 8 mmol/L [facility] CO2 [Moles/Vol] 23 mmol/L 21 - 31 mmol/L [facility] Creatinine [Mass/Vol] 5.95 mg/dL High 0.70 - 1.30 mg/dL [facility] GFR/1.73 sq M.predicted CKD-EPI (S/P/Bld) [Vol rate/Area] 11 Low >=60 mL/min/1.73m 2 [facility] Comment on above: Reported eGFR is bas ed on the CKD-EPI 2020 equation using creatinine, age, and sex. Glucose [Mass/Vol] 165 mg/dL High 70 - 99 mg/dL [facility] Interpretation and review of laboratory results Abnormal [facility] Osmolality Calc [Osmolality] 305 [facility] Potassium [Moles/Vol] 4.6 mmol/L 3.5 - 5.0 mmol/L [facility] Sodium [Moles/Vol] 136 mmol/L 135 - 145 mmol/L [facility] Urea nitrogen [Mass/Vol] 52 mg/dL High 7 - 25 mg/dL [facility] Urea nitrogen/Creatinine [Mass ratio] 9 mg/mg [facility] CHEM 7 (LYTES,BUN,CREA,GLUC) Ordered By: Kehinde Gutierrez on 05-17-2022 Anion gap [Moles/Vol] 24 mmol/L High 7 - 17 mmol/L [facility] Chloride [Moles/Vol] 100 mmol/L 98 - 10 8 mmol/L [facility] CO2 [Moles/Vol] 16 mmol/L Low 21 - 31 mmol/L [facility] Creatinine [Mass/Vol] 8.08 mg/dL High 0.70 - 1.30 mg/dL [facility] GFR/1.73 sq M.predicted CKD-EPI (S/P/Bld) [Vol rate/Area] 7 Low >=60 mL/min/1.73m 2 [facility] Comment on above: Reported eGFR is bas ed on the CKD-EPI 2020 equation using creatinine, age, and sex. Glucose [Mass/Vol] 164 mg/dL High 70 - 99 mg/dL [facility] Interpretation and review of laboratory results Abnormal [facility] Osmolality Calc [Osmolality] 305 [facility] Potassium [Moles/Vol] 5.0 mmol/L 3.5 - 5.0 mmol/L [facility] Sodium [Moles/Vol] 135 mmol/L 135 - 145 mmol/L [facility] Urea nitrogen [Mass/Vol] 56 mg/dL High 7 - 25 mg/dL [facility] Urea nitrogen/Creatinine [Mass ratio] 7 mg/mg [facility] LAVENDER TOP TUBEon 05-17-20 [facility] MAGNESIUMon 05-17-2022 Interpretation and review of laboratory results Normal [facility] Magnesium [Mass/Vol] 1.8 mg/dL 1.6 - 2 .6 mg/dL [facility] Interpretation and review of laboratory results Normal [facility] Magnesium [Mass/Vol] 1.6 mg/dL 1.6 - 2 .6 mg/dL [facility] No Panel Informationon 05-17 [facility] PHOSPHATE, INORGANICon 05-17 Interpretation and review of laboratory results Abnormal [facility] Phosphate [Mass/Vol] 4.9 mg/dL High 2.2 - 4 .6 mg/dL [facility] PT,INR,PTTon 05-17-2022 aPTT Coag (PPP) [Time] 33.0 s [facility] INR Coag (Bld) [Relative time] 1.3 {INR} High [facility] Interpretation and review of laboratory results Abnormal [facility] PT Coag (PPP) [Time] 15.7 s High [facility] Portable XR Chest Viewson IMPRESSION: [...] Stable cardiomegaly. IMPRESSION IMPRESSION: No acute findings. [facility] Radiology Study observation (narrative) [facility] Portable XR Chest ViewsOrder ed By: David Sanz on 05-17-2022 [facility] Work Phone: URINALYSISOrdered By: Michael patel Ma on 05-17-2022 Appearance (U) Cloudy Abnormal Clear [facility] Comment on above: Results may be inacc urate due to color interference. Clinical correlation recommended. Bacteria LM Ql (Urine sed) ABSENT ABSENT [facility] Color (U) Red Abnormal Yellow [facility] Comment on above: Results may be inacc urate due to color interference. Clinical correlation recommended. Epithelial cells.squamous LM Ql (Urine sed) ABSENT 1/hpf = 1+, 2-5/hpf = 2+, 0/hpf = 0+, ABSENT [facility] Glucose Test strip (U) [Mass/Vol] Negative Negative [facility] Comment on above: Results may be inacc urate due to color interference. Clinical correlation recommended. Interpretation and review of laboratory results Abnormal [facility] Ketones (U) [Mass/Vol] Trace Abnormal Negative [facility] Comment on above: Results may be inacc urate due to color interference. Clinical correlation recommended. Leukocyte esterase Test strip Ql (U) Large Abnormal Negative [facility] Comment on above: Results may be inacc urate due to color interference. Clinical correlation recommended. Nitrite Ql (U) Negative Negative [facility] Comment on above: Results may be inacc urate due to color interference. Clinical correlation recommended. pH (U) 5.0 [pH] 5.0 - 7.0 [facility] Comment on above: Results may be inacc urate due to color interference. Clinical correlation recommended. Protein (U) [Mass/Vol] mg/dL Abnormal Negative [facility] Comment on above: Results may be inacc urate due to color interference. Clinical correlation recommended. RBC (U) [#/Vol] Large Abnormal Negative [facility] Comment on above: Results may be inacc urate due to color interference. Clinical correlation recommended. RBC LM.HPF (Urine sed) [#/Area] /[HPF] Abnormal 0 - 2 /HPF [facility] Specific gravity (U) [Rel density] 1.016 [facility] Comment on above: Results may be inacc urate due to color interference. Clinical correlation recommended. Urobilinogen (U) [Mass/Vol] 0.2 E.U./dL 0.2 E.U/dL, 1.0 E.U/dL [facility] Comment on above: Results may be inacc urate due to color interference. Clinical correlation recommended. WBC LM.HPF (Urine sed) [#/Area] /[HPF] Abnormal 0 - 5 /HPF [facility] URINE CULTUREOrdered By: Tyler Tiwari on 05-17-2022 Bacteria identified Cx Nom (Unsp spec) No Growth [facility] CBC,PLATELETSon 05-16-2022 Erythrocyte distribution width (RBC) [Ratio] 12.9 % 10.9 - 14.3 % [facility] Hematocrit (Bld) [Volume fraction] 46.5 % 39.6 - 48.8 % [facility] Hemoglobin (Bld) [Mass/Vol] 14.7 g/dL 13.4 - 16.8 g/dL [facility] Interpretation and review of laboratory results Abnormal [facility] MCH (RBC) [Entitic mass] 28.3 pg 26.1 - 33.3 pg [facility] MCHC (RBC) [Mass/Vol] 31.6 g/dL Low 31.9 - 36.5 g/dL [facility] MCV (RBC) [Entitic vol] 89.6 fL 79.0 - 94.5 fL [facility] Platelet mean volume (Bld) [Entitic vol] 10.3 fL 8.7 - 12.3 fL [facility] Platelets (Bld) [#/Vol] 188 10*3/uL 146 - 337 K/uL [facility] RBC (Bld) [#/Vol] 5.19 10*6/uL [facility] WBC (Bld) [#/Vol] 12.55 10*3/uL High 3.73 - 10 .10 K/uL [facility] CHEM 7 (LYTES,BUN,CREA,GLUC) Ordered By: Alma Pena on 05-16-2022 Anion gap [Moles/Vol] 14 mmol/L 7 - 17 mmol/L [facility] Chloride [Moles/Vol] 103 mmol/L 98 - 10 8 mmol/L [facility] CO2 [Moles/Vol] 22 mmol/L 21 - 31 mmol/L [facility] Creatinine [Mass/Vol] 6.09 mg/dL High 0.70 - 1.30 mg/dL [facility] GFR/1.73 sq M.predicted CKD-EPI (S/P/Bld) [Vol rate/Area] 10 Low >=60 mL/min/1.73m 2 [facility] Comment on above: Reported eGFR is bas ed on the CKD-EPI 2020 equation using creatinine, age, and sex. Glucose [Mass/Vol] 134 mg/dL High 70 - 99 mg/dL [facility] Interpretation and review of laboratory results Abnormal [facility] Osmolality Calc [Osmolality] 298 [facility] Potassium [Moles/Vol] 4.9 mmol/L 3.5 - 5.0 mmol/L [facility] Sodium [Moles/Vol] 134 mmol/L Low 135 - 145 mmol/L [facility] Comment on above: Results inconsistent with previous results Urea nitrogen [Mass/Vol] 49 mg/dL High 7 - 25 mg/dL [facility] Urea nitrogen/Creatinine [Mass ratio] 8 mg/mg [facility] CHEM 7 (LYTES,BUN,CREA,GLUC) on 05-16-2022 Anion gap [Moles/Vol] 17 mmol/L 7 - 17 mmol/L [facility] Chloride [Moles/Vol] 106 mmol/L 98 - 10 8 mmol/L [facility] CO2 [Moles/Vol] 22 mmol/L 21 - 31 mmol/L [facility] Creatinine [Mass/Vol] 5.23 mg/dL High 0.70 - 1.30 mg/dL [facility] GFR/1.73 sq M.predicted CKD-EPI (S/P/Bld) [Vol rate/Area] 13 Low >=60 mL/min/1.73m 2 [facility] Comment on above: Reported eGFR is bas ed on the CKD-EPI 2020 equation using creatinine, age, and sex. Glucose [Mass/Vol] 116 mg/dL High 70 - 99 mg/dL [facility] Interpretation and review of laboratory results Abnormal [facility] Osmolality Calc [Osmolality] [facility] Potassium [Moles/Vol] 4.6 mmol/L 3.5 - 5.0 mmol/L [facility] Sodium [Moles/Vol] 140 mmol/L 135 - 145 mmol/L [facility] Urea nitrogen [Mass/Vol] 42 mg/dL High 7 - 25 mg/dL [facility] Urea nitrogen/Creatinine [Mass ratio] 8 mg/mg [facility] EXTRA MICROon 05-16-2022 [facility] LT BLUE TOP TUBEon 2 [facility] LYTES (NA, K, CL) - URINE - RANDOMon 05-16-2022 Chloride (24H U) [Moles/Vol] 68 mmol/L [facility] Potassium (24H U) [Moles/Vol] 36.7 mmol/L [facility] Sodium (24H U) [Moles/Vol] 55 mmol/L [facility] The reference range has not been established for random urine specimens. The test result should be integrated into the clinical context for interpretation. [facility] MAGNESIUMon 05-16-2022 Interpretation and review of laboratory results Normal [facility] Magnesium [Mass/Vol] 1.7 mg/dL 1.6 - 2 .6 mg/dL [facility] NOVEL CORONAVIRUS PCROrdered By: Edson Candelario on 05-16-2022 SARS-CoV-2 (COVID-19) RNA ESTELITA+probe Ql (Unsp spec) Not detected NOT DETECTED [facility] Comment on above: [facility] Negative results [...] use authorization for use by authorized laboratories. [facility] No Panel Informationon 05-16 [facility] OSMOLALITY, URINEon 05-16-20 Interpretation and review of laboratory results Normal [facility] Osmolality (U) [Osmolality] 320 mosm/kg [facility] The reference range has not been established for random urine specimens. The test result should be integrated into the clinical context for interpretation. [facility] PROCALCITONINon 05-16-2022 Interpretation and review of laboratory results Normal [facility] Procalcitonin [Mass/Vol] 0.18 ng/mL <0.50 [facility] Comment on above: Procalcitonin is an FDA-approved assay to help manage antibiotic treatment in patients with sepsis/septic shock and lower respiratory tract infections. Specifically, trending procalcitonin in these situations can be used to reduce the duration of antibiotics. Please refer to the Procalcitonin Guide on the [employer]ward[employer] Webpage for more guidance on how to use and trend procalcitonin in various clinical settings. [email or web address] Two common cutoffs associated with bacterial infections are as follows. Respiratory tract infections: >0.25 ng/mL Sepsis/septic shock: >0.5 ng/mL Procalcitonin should not be used alone as a diagnostic tool, however. All procalcitonin results should be interpreted in association with the patients clinical condition and all laboratory findings. [facility] PT,INR,PTTon 05-16-2022 aPTT Coag (PPP) [Time] 30.3 s [facility] INR Coag (Bld) [Relative time] 1.1 {INR} [facility] Interpretation and review of laboratory results Normal [facility] PT Coag (PPP) [Time] 14.1 s [facility] SARS-CoV-2 (COVID-19) RNA NA A+probe Ql (Unsp spec)Ordered By: Edson Candelario on 05-16-2022 Interpretation and review of laboratory results Normal [facility] TACROLIMUS LEVEL, TROUGH (MT E DRUG LEVEL)Ordered By: Mariama Nick on 05-16-2022 Interpretation and review of laboratory results Normal [facility] Tacrolimus (Bld) [Mass/Vol] 4.1 ng/mL Bone Marrow Transplant: 4.0-12.0, Therapeutic: 5.0-15.0 [facility] Method performed is a chemiluminescent microparticle immunoasssay on the [employer] i2000. The range is based on experience at [facility] and users should be aware that target concentrations vary widely depending on concomitant therapy, time post-transplant, and desired degree of immunosuppression. [facility] URINE PROTEIN/CREA RATIO, RA Smiley 05-16-2022 Creatinine (24H U) [Mass/Vol] 59.82 mg/dL [facility] Protein Unsp time (U) [Mass/Vol] 111 mg/dL [facility] Protein/Creatinine (U) [Mass ratio] 1.856 mg/g [facility] US for transplanted kidney l imitedon 05-16-2022 [...] appearing vascular flow in the transplant kidney. [facility] Radiology Study observation (narrative) [facility] US for transplanted kidney l imitedOrdered By: Rosendo Matute on 05-16-2022 [facility] Work Phone: CBC AND ELECTRONIC DIFFon Basophils (Bld) [#/Vol] 10*3/uL 0.00 - 0.09 K/uL [facility] Basophils/100 WBC (Bld) 0.2 % [facility] Differential cell count method Nom (Bld) Electronic Differential [facility] Eosinophils (Bld) [#/Vol] 10*3/uL 0.00 - 0.48 K/uL [facility] Eosinophils/100 WBC (Bld) 0.0 % [facility] Erythrocyte distribution width (RBC) [Ratio] 12.8 % 10.9 - 14.3 % [facility] Hematocrit (Bld) [Volume fraction] 46.0 % 39.6 - 48.8 % [facility] Hemoglobin (Bld) [Mass/Vol] 14.6 g/dL 13.4 - 16.8 g/dL [facility] Immature granulocytes (Bld) [#/Vol] 0.07 10*3/uL <=0.08 [facility] Immature granulocytes/100 WBC (Bld) 0.4 % [facility] Interpretation and review of laboratory results Abnormal [facility] Lymphocytes (Bld) [#/Vol] 1.49 10*3/uL 0.83 - 3.57 K/uL [facility] Lymphocytes/100 WBC (Bld) 9.4 % [facility] MCH (RBC) [Entitic mass] 28.2 pg 26.1 - 33.3 pg [facility] MCHC (RBC) [Mass/Vol] 31.7 g/dL Low 31.9 - 36.5 g/dL [facility] MCV (RBC) [Entitic vol] 89.0 fL 79.0 - 94.5 fL [facility] Monocytes (Bld) [#/Vol] 1.45 10*3/uL High 0.24 - 0.93 K/uL [facility] Monocytes/100 WBC (Bld) 9.2 % [facility] Neutrophils (Bld) [#/Vol] 12.77 10*3/uL High 1.57 - 6.19 K/uL [facility] Nucleated RBC/100 WBC (Bld) [Ratio] 0.0 % <=0.2 /100 WBC [facility] Platelet mean volume (Bld) [Entitic vol] 9.9 fL 8.7 - 12.3 fL [facility] Platelets (Bld) [#/Vol] 250 10*3/uL 146 - 337 K/uL [facility] RBC (Bld) [#/Vol] 5.17 10*6/uL [facility] Segmented neutrophils/100 WBC (Bld) 80.8 % [facility] WBC (Bld) [#/Vol] 15.81 10*3/uL High 3.73 - 10 .10 K/uL [facility] CBC AUTO DIFFon 05-15-2022 BASO # 0.0 103/ul Normal 0.0-0.1 [facility] Comment on above: Performed By: #### C BC #### [facility] [address] [place] [address] Dr. Dwight Waters Basophils/100 WBC (Bld) 0.3 % Normal 0.2-2.0 [facility] Comment on above: Performed By: #### C BC #### [facility] [address] [place] [address] Dr. Dwight Waters EO # 0.1 103/ul Normal 0.0-0.7 [facility] Comment on above: Performed By: #### C BC #### [facility] [address] [place] [address] Dr. Dwight Waters Eosinophils/100 WBC (Bld) 0.8 % Critically low 0.9-7.0 [facility] Comment on above: Performed By: #### C BC #### [facility] [address] [place] [address] Dr. Dwight Waters Erythrocyte distribution width (RBC) [Ratio] 12.7 % Normal 11.0-15.0 [facility] Comment on above: Performed By: #### C BC #### [facility] [address] [place] [address] Dr. Dwight Waters Hematocrit (Bld) [Volume fraction] 43.5 % Normal 42.0-54.0 [facility] Comment on above: Performed By: #### C BC #### [facility] [address] [place] [address] Dr. Dwight Waters Hemoglobin (Bld) [Mass/Vol] 14.4 g/dL Normal 14.0-18.0 [facility] Comment on above: Performed By: #### C BC #### [facility] [address] [place] [address] Dr. Dwight Waters IG # 0.02 10e3/ul Normal 0.00-0.03 [facility] Comment on above: Performed By: #### C BC #### [facility] [address] [place] [address] Dr. Dwight Waters IG % 0.2 % Normal 0.0-0.5 [facility] Comment on above: Performed By: #### C BC #### [facility] [address] [place] [address] Dr. Dwight Waters LYMPH # 1.5 103/ul Normal 1.2-3.8 [facility] Comment on above: Performed By: #### C BC #### [facility] [address] [place] [address] Dr. Dwight Waters Lymphocytes/100 WBC (Bld) 12.5 % Critically low 20.5-60.0 [facility] Comment on above: Performed By: #### C BC #### [facility] [address] [place] [address] Dr. Dwight Waters MANUAL DIFF REQ NO Normal [facility] Comment on above: Performed By: #### C BC #### [facility] [address] [place] [address] Dr. Dwight Waters MCH (RBC) [Entitic mass] 28.6 pg Normal 25.9-34.0 [facility] Comment on above: Performed By: #### C BC #### [facility] [address] [place] [address] Dr. Dwight Waters MCHC (RBC) [Mass/Vol] 33.1 g/dL Normal 29.9-35.2 [facility] Comment on above: Performed By: #### C BC #### [facility] [address] [place] [address] Dr. Dwight Waters MCV (RBC) [Entitic vol] 86.3 fL Normal 80.0-94.0 [facility] Comment on above: Performed By: #### C BC #### [facility] [address] [place] [address] Dr. Dwight Waters MONO # 1.0 103/ul Critically high 0.3-0.8 [facility] Comment on above: Performed By: #### C BC #### [facility] [address] [place] [address] Dr. Dwight Waters Monocytes/100 WBC (Bld) 8.2 % Normal 1.7-12.0 [facility] Comment on above: Performed By: #### C BC #### [facility] [address] [address] [address] Dwight Waters NEUT # 9.1 103/ul Critically high 1.4-6.5 [facility] Comment on above: Performed By: #### C BC #### [facility] [address] [place] [address] Dr. Dwight Waters Neutrophils/100 WBC (Bld) 78.0 % Critically high 43.0-75.0 [facility] Comment on above: Performed By: #### C BC #### [facility] [address] [place] [address] Dr. Dwight Waters Platelet mean volume (Bld) [Entitic vol] 9.8 fL Normal 9.5-13.5 [facility] Comment on above: Performed By: #### C BC #### [facility] [address] [place] [address] Dr. Dwight Waters PLT 251 103/ul Normal 150-450 [facility] Comment on above: Performed By: #### C BC #### [facility] [address] [place] [address] Dr. Dwight Waters RBC 5.04 106/ul Normal 4.70-6.10 [facility] Comment on above: Performed By: #### C BC #### [facility] [address] [place] [address] Dr. Dwight Waters WBC 11.6 103/ul Critically high 4.0-11.0 [facility] Comment on above: Performed By: #### C BC #### [facility] [address] [place] [address] Dr. Dwight Waters CHEM 6 (LYTES, BUN CREA)on 0 05-15-2022 Anion gap [Moles/Vol] 12 mmol/L 7 - 17 mmol/L [facility] Chloride [Moles/Vol] 105 mmol/L 98 - 10 8 mmol/L U [facility] CO2 [Moles/Vol] 26 mmol/L 21 - 31 mmol/L [facility] Creatinine [Mass/Vol] 2.85 mg/dL High 0.70 - 1.30 mg/dL [facility] GFR/1.73 sq M.predicted CKD-EPI (S/P/Bld) [Vol rate/Area] 26 Low >=60 mL/min/1.73m 2 [facility] Comment on above: Reported eGFR is bas ed on the CKD-EPI 2020 equation using creatinine, age, and sex. Potassium [Moles/Vol] 4.6 mmol/L 3.5 - 5.0 mmol/L [facility] Sodium [Moles/Vol] 138 mmol/L 135 - 145 mmol/L [facility] Urea nitrogen [Mass/Vol] 32 mg/dL High 7 - 25 mg/dL [facility] Urea nitrogen/Creatinine [Mass ratio] 11 [facility]PELVIS WO CONon 05-15 CT [...] transplanted kidney with moderate right-sided hydronephrosis. Atrophic [place] kidneys with moderate right-sided hydronephrosis. Multiple nonobstructive [...] transplanted kidney with moderate right-sided hydronephrosis. Atrophic [place] kidneys with moderate right-sided hydronephrosis. Multiple nonobstructive right renal calculi measuring up to 8 mm. FOLLOW-UP: Follow-up as clinically indicated. Electronically authenticated by: LYNDSAY JEAN Date: 2022-05-15 05:04 Normal [facility] Covid-19 PCR (CVDTBH)on 04-30 SARS-CoV-2 (COVID-19) RNA ESTELITA+probe Ql (Unsp spec) Not detected Normal NOT DETECTED [facility] [facility] Comment on above: Result Comment: When diagnostic [...] for this test is supported by the [place] of [employer] and Human Service's declaration that [...] used). Performed By: #### U RTPCR #### [facility] [address] [place] [address] Dr. Dwight Waters GLUCOSEon 05-15-2022 Glucose [Mass/Vol] 141 mg/dL High 70 - 99 mg/dL [facility] GOLD TOP TUBEon 05-15-2022 [facility] HEPATIC FUNCTION PANELon Albumin [Mass/Vol] 4.3 g/dL 3.5 - 5.0 g/dL [facility] ALP [Catalytic activity/Vol] 85 U/L 32 - 126 U/L [facility] ALT [Catalytic activity/Vol] 13 U/L 10 - 52 U/L [facility] AST [Catalytic activity/Vol] 15 U/L 10 - 39 U/L [facility] Bilirubin [Mass/Vol] 0.8 mg/dL <1.5 [facility] Bilirubin.direct [Mass/Vol] 0.2 mg/dL <0.3 [facility] Interpretation and review of laboratory results Normal [facility] Protein [Mass/Vol] 7.3 g/dL 6.4 - 8.3 g/dL [facility] LIPASEon 05-15-2022 Lipase [Catalytic activity/Vol] 8 U/L Low 11 - 82 U/L [facility] No Panel Informationon 05-15 Interpretation and review of laboratory results Abnormal [facility] PROF 14(COMP METB)on 022 Albumin [Mass/Vol] 3.8 g/dL Normal 3.4-5.0 [facility] Comment on above: Performed By: #### U RTPCR #### [facility] [address] [place] [address] Dr. Dwight Waters Albumin/Globulin [Mass ratio] 1.1 {ratio} Normal [facility] Comment on above: Performed By: #### U RTPCR #### [facility] [address] [place] [address] Dr. Dwight Waters ALP [Catalytic activity/Vol] 92 U/L Normal 46-116 [facility] Comment on above: Performed By: #### U RTPCR #### [facility] [address] [place] [address] Dr. Dwight Waters ALT [Catalytic activity/Vol] 25 U/L Normal 16-63 [facility] Comment on above: Performed By: #### U RTPCR #### [facility] [address] [place] [address] Dr. Dwight Waters Anion gap [Moles/Vol] 14.6 mmol/L Normal [facility] Comment on above: Performed By: #### U RTPCR #### [facility] [address] [place] [address] Dr. Dwight Waters AST [Catalytic activity/Vol] 17 U/L Normal 15-37 [facility] Comment on above: Performed By: #### U RTPCR #### [facility] [address] [place] [address] Dr. Dwight Waters Bilirubin [Mass/Vol] 0.6 mg/dL Normal 0.2-1.0 [facility] Comment on above: Performed By: #### U RTPCR #### [facility] [address] [place] [address] Dr. Dwight Waters Calcium [Mass/Vol] 9.9 mg/dL Normal 8.5-10.1 [facility] Comment on above: Performed By: #### U RTPCR #### [facility] [address] [place] [address] Dr. Dwight Waters Chloride [Moles/Vol] 106 mmol/L Normal 98-107 [facility] Comment on above: Performed By: #### U RTPCR #### [facility] [address] [place] [address] Dr. Dwight Waters CO2 [Moles/Vol] 24.2 mmol/L Normal 21.0-32.0 [facility] Comment on above: Performed By: #### U RTPCR #### [facility] [address] [place] [address] Dr. Dwight Waters Creatinine [Mass/Vol] 1.58 mg/dL Critically high 0.70-1.30 [facility] Comment on above: Performed By: #### U RTPCR #### [facility] [address] [place] [address] Dr. Dwight Waters EGFR-AF CYMRO 56 mL/min/1.73m2 Critically low >=60 [facility] Comment on above: Performed By: #### U RTPCR #### [facility] [address] [place] [address] Dr. Dwight Waters EGFR-NON AF CYMRO 46 mL/min/1.73m2 Critically low >=60 [facility] Comment on above: Performed By: #### U RTPCR #### [facility] [address] [place] [address] Dr. Dwight Waters Globulin (S) [Mass/Vol] 3.5 g/dL Normal [facility] Comment on above: Performed By: #### U RTPCR #### [facility] [address] [place] [address] Dr. Dwight Waters Glucose [Mass/Vol] 162 mg/dL Critically high 74-106 [facility] Comment on above: Performed By: #### U RTPCR #### [facility] [address] [address] [address] Dwight Waters Potassium [Moles/Vol] 3.8 mmol/L Normal 3.5-5.1 [facility] Comment on above: Performed By: #### U RTPCR #### [facility] [address] [address] [address] Dwight Waters Protein [Mass/Vol] 7.3 g/dL Normal 6.4-8.2 [facility] Comment on above: Performed By: #### U RTPCR #### [facility] [address] [place] [address] Dr. Dwight Waters Sodium [Moles/Vol] 141 mmol/L Normal 136-145 [facility] Comment on above: Performed By: #### U RTPCR #### [facility] [address] [address] [address] Dwight Waters Urea nitrogen [Mass/Vol] 22.0 mg/dL Critically high 7.0-18.0 [facility] Comment on above: Performed By: #### U RTPCR #### [facility] [address] [place] [address] Dr. Dwight Waters Urea nitrogen/Creatinine [Mass ratio] 13.9 mg/mg Normal [facility] Comment on above: Performed By: #### U RTPCR #### [facility] [address] [place] [address] Dr. Dwight Waters Portable XR Chest Viewson [...] chest. IMPRESSION IMPRESSION: No acute cardiopulmonary disease [facility] Radiology Study observation (narrative) [facility] Portable XR Chest ViewsOrder ed By: Vladislav Omer on 05-15-2022 [facility] URINE DIPSTICK; REFLEX MICRO SCOPY; REFLEX CULTURE PERFORMABLEon 05-15-2022 Appearance (U) Clear Clear [facility] Color (U) Yellow Yellow [facility] Glucose Test strip (U) [Mass/Vol] 100 mg/dL Abnormal Negative [facility] Interpretation and review of laboratory results Abnormal [facility] Ketones (U) [Mass/Vol] Negative Negative [facility] Leukocyte esterase Test strip Ql (U) Large Abnormal Negative [facility] Nitrite Ql (U) Negative Negative [facility] pH (U) 6.0 [pH] 5.0 - 7.0 [facility] Protein (U) [Mass/Vol] 100 mg/dL Abnormal Negative [facility] RBC (U) [#/Vol] Large Abnormal Negative [facility] Specific gravity (U) [Rel density] 1.010 [facility] Urobilinogen (U) [Mass/Vol] 0.2 E.U./dL 0.2 E.U/dL, 1.0 E.U/dL [facility] URINE MICROSCOPIC WITH REFLE X TO CULTUREOrdered By: Rey Bro on 05-15-2022 Bacteria LM Ql (Urine sed) ABSENT ABSENT [facility] Epithelial cells.squamous LM Ql (Urine sed) ABSENT 1/hpf = 1+, 2-5/hpf = 2+, 0/hpf = 0+, ABSENT [facility] Interpretation and review of laboratory results Abnormal [facility] RBC LM.HPF (Urine sed) [#/Area] /[HPF] Abnormal 0 - 2 /HPF [facility] WBC LM.HPF (Urine sed) [#/Area] 10-20 Abnormal 0 - 5 /HPF [facility] CT ABD/PELVIS WO CONon 05-12 CT ABD/PELVIS WO CON Begin Addendum #[address] Lund 3:25 PM EST 05/11/2022. Begin Addendum #2 IMPRESSION below should also contain the followin. 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 The [place] kidneys are progressively atrophic bilaterally compared to [...] of 06/14/2020 are no longer present. The [place] distal right ureter is decompressed beyond this [...] with surgical history for renal graft and [place] right urinary drainage, as a discrete ureteroneocystostomy is not identified, and the graft may be draining via a ureteroureterostomy. Urology consultation recommended. 3. The [place] kidneys are bilaterally atrophic, with right renal sinus calcifications consistent with nonobstructing right [place] renal calculi up to 6 mm. Normal [facility] CBC AUTO DIFFon 05-11-2022 BASO # 0.1 103/ul Normal 0.0-0.1 [facility] Comment on above: Performed By: #### U RTPCR #### [facility] [address] [place] [address] Dr. Dwight Waters Basophils/100 WBC (Bld) 0.8 % Normal 0.2-2.0 [facility] Comment on above: Performed By: #### U RTPCR #### [facility] [address] [place] [address] Dr. Dwight Waters EO # 0.2 103/ul Normal 0.0-0.7 [facility] Comment on above: Performed By: #### U RTPCR #### [facility] [address] [place] [address] Dr. Dwight Waters Eosinophils/100 WBC (Bld) 2.5 % Normal 0.9-7.0 [facility] Comment on above: Performed By: #### U RTPCR #### [facility] [address] [place] [address] Dr. Dwight Waters Erythrocyte distribution width (RBC) [Ratio] 12.5 % Normal 11.0-15.0 [facility] Comment on above: Performed By: #### U RTPCR #### [facility] [address] [place] [address] Dr. Dwight Waters Hematocrit (Bld) [Volume fraction] 48.3 % Normal 42.0-54.0 [facility] Comment on above: Performed By: #### U RTPCR #### [facility] [address] [place] [address] Dr. Dwight Waters Hemoglobin (Bld) [Mass/Vol] 15.3 g/dL Normal 14.0-18.0 [facility] Comment on above: Performed By: #### U RTPCR #### [facility] [address] [place] [address] Dr. Dwight Waters IG # 0.01 10e3/ul Normal 0.00-0.03 [facility] Comment on above: Performed By: #### U RTPCR #### [facility] [address] [place] [address] Dr. Dwight Waters IG % 0.2 % Normal 0.0-0.5 [facility] Comment on above: Performed By: #### U RTPCR #### [facility] [address] [place] [address] Dr. Dwight Waters LYMPH # 1.9 103/ul Normal 1.2-3.8 [facility] Comment on above: Performed By: #### U RTPCR #### [facility] [address] [place] [address] Dr. Dwight Waters Lymphocytes/100 WBC (Bld) 29.8 % Normal 20.5-60.0 [facility] Comment on above: Performed By: #### U RTPCR #### [facility] [address] [place] [address] Dr. Dwight Waters MANUAL DIFF REQ NO Normal [facility] Comment on above: Performed By: #### U RTPCR #### [facility] [address] [place] [address] Dr. Dwight Waters MCH (RBC) [Entitic mass] 28.2 pg Normal 25.9-34.0 [facility] Comment on above: Performed By: #### U RTPCR #### [facility] [address] [place] [address] Dr. Dwight Waters MCHC (RBC) [Mass/Vol] 31.7 g/dL Normal 29.9-35.2 [facility] Comment on above: Performed By: #### U RTPCR #### [facility] [address] [place] [address] Dr. Dwight Waters MCV (RBC) [Entitic vol] 89.1 fL Normal 80.0-94.0 [facility] Comment on above: Performed By: #### U RTPCR #### [facility] [address] [place] [address] Dr. Dwight Waters MONO # 0.6 103/ul Normal 0.3-0.8 [facility] Comment on above: Performed By: #### U RTPCR #### [facility] [address] [place] [address] Dr. Dwight Waters Monocytes/100 WBC (Bld) 9.0 % Normal 1.7-12.0 [facility] Comment on above: Performed By: #### U RTPCR #### [facility] [address] [place] [address] Dr. Dwight Waters NEUT # 3.6 103/ul Normal 1.4-6.5 [facility] Comment on above: Performed By: #### U RTPCR #### [facility] [address] [place] [address] Dr. Dwight Waters Neutrophils/100 WBC (Bld) 57.7 % Normal 43.0-75.0 [facility] Comment on above: Performed By: #### U RTPCR #### [facility] [address] [place] [address] Dr. Dwight Waters Platelet mean volume (Bld) [Entitic vol] 9.9 fL Normal 9.5-13.5 [facility] Comment on above: Performed By: #### U RTPCR #### [facility] [address] [place] [address] Dr. Dwight Waters PLT 249 103/ul Normal 150-450 [facility] Comment on above: Performed By: #### U RTPCR #### [facility] [address] [place] [address] Dr. Dwight Waters RBC 5.42 106/ul Normal 4.70-6.10 [facility] Comment on above: Performed By: #### U RTPCR #### [facility] [address] [place] [address] Dr. Dwight Waters WBC 6.3 103/ul Normal 4.0-11.0 [facility] Comment on above: Performed By: #### U RTPCR #### [facility] [address] [place] [address] Dr. Dwight Waters ER URINE PROFILEon 2 Bilirubin Ql (U) Unable to perform te sting due to color interference. Abnormal NEGATIVE [facility] Comment on above: Performed By: #### U RTPCR #### [facility] [address] [place] [address] Dr. Dwight Waters Clarity (U) TURBID Abnormal CLEAR [facility] Comment on above: Performed By: #### U RTPCR #### [facility] [address] [place] [address] Dr. Dwight Waters Color (U) RED Abnormal YELLOW [facility] Comment on above: Performed By: #### U RTPCR #### [facility] [address] [place] [address] Dr. Dwight Waters ERUAHD A micrscopic examina tion will be performed if indicated. Normal [facility] Comment on above: Performed By: #### U RTPCR #### [facility] [address] [place] [address] Dr. Dwight Waters Glucose Ql (U) Unable to perform te sting due to color interference. Abnormal NEGATIVE [facility] Comment on above: Performed By: #### U RTPCR #### [facility] [address] [place] [address] Dr. Dwight Waters Hemoglobin Ql (U) Unable to perform te sting due to color interference. Abnormal NEGATIVE [facility] Comment on above: Performed By: #### U RTPCR #### [facility] [address] [place] [address] Dr. Dwight Waters Ketones Ql (U) Unable to perform te sting due to color interference. Abnormal NEGATIVE [facility] Comment on above: Performed By: #### U RTPCR #### [facility] [address] [place] [address] Dr. Dwight Waters LEUKOCYTES Unable to perform te sting due to color interference. Abnormal NEGATIVE [facility] Comment on above: Performed By: #### U RTPCR #### [facility] [address] [place] [address] Dr. Dwight Waters Nitrite Ql (U) Unable to perform te sting due to color interference. Abnormal NEGATIVE [facility] Comment on above: Performed By: #### U RTPCR #### [facility] [address] [place] [address] Dr. Dwight Waters pH (U) 6.5 [pH] Normal 5-9 [facility] Comment on above: Performed By: #### U RTPCR #### [facility] [address] [place] [address] Dr. Dwight Waters SPEC GRAVITY 1.020 Normal 1.005-<=1.02 5 [facility] Comment on above: Performed By: #### U RTPCR #### [facility] [address] [place] [address] Dr. Dwight Waters UA PROTEIN Unable to perform te sting due to color interference. Normal NEGATIVE/ TRACE [facility] Comment on above: Performed By: #### U RTPCR #### [facility] [address] [place] [address] Dr. Dwight Waters UR MICRO IND INDICATED Normal [facility] Comment on above: Performed By: #### U RTPCR #### [facility] [address] [place] [address] Dr. Dwight Waters UROBILINOGEN Unable to perform te sting due to color interference. Normal 0.2 - 1.0 [facility] Comment on above: Performed By: #### U RTPCR #### [facility] [address] [place] [address] Dr. Dwight Waters PROF 14(COMP METB)on 022 Albumin [Mass/Vol] 3.8 g/dL Normal 3.4-5.0 [facility] Comment on above: Performed By: #### C MP #### [facility] [address] [place] [address] Dr. Dwight Waters Albumin/Globulin [Mass ratio] 1.1 {ratio} Normal [facility] Comment on above: Performed By: #### C MP #### [facility] [address] [place] [address] Dr. Dwight Waters ALP [Catalytic activity/Vol] 106 U/L Normal 46-116 [facility] Comment on above: Performed By: #### C MP #### [facility] [address] [place] [address] Dr. Dwight Waters ALT [Catalytic activity/Vol] 30 U/L Normal 16-63 [facility] Comment on above: Performed By: #### C MP #### [facility] [address] [place] [address] Dr. Dwight Waters Anion gap [Moles/Vol] 11.7 mmol/L Normal [facility] Comment on above: Performed By: #### C MP #### [facility] [address] [place] [address] Dr. Dwight Waters AST [Catalytic activity/Vol] 16 U/L Normal 15-37 [facility] Comment on above: Performed By: #### C MP #### [facility] [address] [place] [address] Dr. Dwight Waters Bilirubin [Mass/Vol] 0.6 mg/dL Normal 0.2-1.0 [facility] Comment on above: Performed By: #### C MP #### [facility] [address] [place] [address] Dr. Dwight Waters Calcium [Mass/Vol] 9.1 mg/dL Normal 8.5-10.1 [facility] Comment on above: Performed By: #### C MP #### [facility] [address] [place] [address] Dr. Dwight Waters CO2 [Moles/Vol] 27.4 mmol/L Normal 21.0-32.0 [facility] Comment on above: Performed By: #### C MP #### [facility] [address] [place] [address] Dr. Dwight Waters Creatinine [Mass/Vol] 1.18 mg/dL Normal 0.70-1.30 [facility] Comment on above: Performed By: #### C MP #### [facility] [address] [place] [address] Dr. Dwight Waters EGFR-AF CYMRO >60 Normal >=60 [facility] Comment on above: Performed By: #### C MP #### [facility] [address] [place] [address] Dr. Dwight Waters EGFR-NON AF CYMRO >60 Normal >=60 [facility] Comment on above: Performed By: #### C MP #### [facility] [address] [place] [address] Dr. Dwight Waters Globulin (S) [Mass/Vol] 3.6 g/dL Normal [facility] Comment on above: Performed By: #### C MP #### [facility] [address] [place] [address] Dr. Dwight Waters Glucose [Mass/Vol] 192 mg/dL Critically high 74-106 T [facility] Comment on above: Performed By: #### C MP #### [facility] [address] [place] [address] Dr. Dwight Waters Potassium [Moles/Vol] 4.1 mmol/L Normal 3.5-5.1 [facility] Comment on above: Performed By: #### C MP #### [facility] [address] [address] [address] Dwight Waters Protein [Mass/Vol] 7.4 g/dL Normal 6.4-8.2 [facility] Comment on above: Performed By: #### C MP #### [facility] [address] [place] [address] Dr. Dwight Waters Sodium [Moles/Vol] 142 mmol/L Normal 136-145 [facility] Comment on above: Performed By: #### C MP #### [facility] [address] [place] [address] Dr. Dwight Waters Urea nitrogen [Mass/Vol] 17.0 mg/dL Normal 7.0-18.0 [facility] Comment on above: Performed By: #### C MP #### [facility] [address] [place] [address] Dr. Dwight Waters Urea nitrogen/Creatinine [Mass ratio] 14.4 mg/mg Normal [facility] Comment on above: Performed By: #### C MP #### [facility] [address] [place] [address] Dr. Dwight Waters URINE MICROSCOPIC ONLYon BACTERIA NONE SEEN Normal NONE SEEN [facility] Comment on above: Performed By: #### U RTPCR #### [facility] [address] [place] [address] Dr. Dwight Waters Bacteria identified Cx Nom (U) NOT INDICATED Normal [facility] Comment on above: Performed By: #### U RTPCR #### [facility] [address] [place] [address] Dr. Dwight Waters CAST NONE SEEN Normal NONE SEEN [facility] Comment on above: Performed By: #### U RTPCR #### [facility] [address] [place] [address] Dr. Dwight Waters Crystals LM Nom (Urine sed) NONE SEEN Normal NONE SEEN [facility] Comment on above: Performed By: #### U RTPCR #### [facility] [address] [place] [address] Dr. Dwight Waters Epithelial cells LM Ql (Urine sed) RARE Normal NONE SEEN /RARE [facility] Comment on above: Performed By: #### U RTPCR #### [facility] [address] [address] [address] Dwight Waters MUCOUS NONE SEEN Normal NONE SEEN [facility] Comment on above: Performed By: #### U RTPCR #### [facility] [address] [address] [address] Dwight Waters RBC (U) [#/Vol] /uL Abnormal 0-2 [facility] Comment on above: Performed By: #### U RTPCR #### [facility] [address] [address] [address] Dwight Waters WBC NONE SEEN Normal NONE SEEN [facility] Comment on above: Performed By: #### U RTPCR #### [facility] [address] [place] [address] Dr. Dwight Watres K (Potassium)on 01-06-2020 Potassium [Moles/Vol] 4.4 mmol/L Normal 3.7-5.3 [facility] Comment on above: Performed By: #### K #### [facility] [address] [place] [address] Eyeglass Lens Grinder: Kehinde Woodward MD Potassiumon 01-06-2020 Potassium [Moles/Vol] 4.4 mmol/L 3.7 - 5.3 mmol/L [facility] Work Phone: Hemoglobin and Hematocrit, B loodon 10-24-2019 Hematocrit (Bld) [Volume fraction] 23.6 % Low 40.7 - 50.3 % [place], [place] Hemoglobin (Bld) [Mass/Vol] 7.3 g/dL Low 13 - 17 g/dL [place] Interpretation and review of laboratory results Abnormal [place] Hgb/Hcton 10-24-2019 Hematocrit (Bld) [Volume fraction] 23.6 % Low 40.7-50.3 [facility] Comment on above: Performed By: #### H H #### [facility] [address] [place], [place] [id number] Eyeglass Lens Grinder: Kehinde Woodward MD Hemoglobin (Bld) [Mass/Vol] 7.3 g/dL Low 13.0-17.0 [facility] Comment on above: Performed By: #### H H #### [facility] [address] [place], [place] [id number] Eyeglass Lens Grinder: Kehinde Woodward MD Hemoglobinon 08-27-2019 Hemoglobin (Bld) [Mass/Vol] 7.5 g/dL Low 13.0-17.0 [facility] Comment on above: Performed By: #### H GB #### [facility] [address] [place], [place] [id number] Eyeglass Lens Grinder: Kehinde Woodward MD Hemoglobin (Bld) [Mass/Vol] 7.5 g/dL Low 13 - 17 g/dL [place] Interpretation and review of laboratory results Abnormal [place] Hemoglobinon 08-08-2019 Hemoglobin (Bld) [Mass/Vol] 8.3 g/dL Low 13.0-17.0 [facility] Comment on above: Performed By: #### H GB #### [facility] [address] [place] [address] Eyeglass Lens Grinder: Kehinde Woodward MD Hemoglobin (Bld) [Mass/Vol] 8.3 g/dL Low 13 - 17 g/dL [place] Interpretation and review of laboratory results Abnormal [place] Hemoglobinon 08-04-2019 Hemoglobin (Bld) [Mass/Vol] 8.0 g/dL Low 13.0-17.0 [facility] Comment on above: Performed By: #### H GB #### [facility] [address] [place] [address] Eyeglass Lens Grinder: Kehinde Woodward MD Hemoglobin A1Con 08-03-2019 HbA1c (Bld) [Mass fraction] % Low 4.8-5.9 [facility] Comment on above: Result Comment: The ADA and AACC recommend providing the estimated average glucose result to permit better patient understanding of their HBA1c result. Performed By: #### G LYHGB #### [facility] [address] [place] [id number] Eyeglass Lens Grinder: Kehinde Woodward MD Glucose [Mass/Vol] mg/dL mg/dL [place] Comment on above: The ADA and AACC rec ommend providing the estimated average glucose result to permit better patient understanding of their HBA1c result. HbA1c (Bld) [Mass fraction] % Low 4.8 - 5.9 % [place] Interpretation and review of laboratory results Abnormal [place] Hemoglobinon 08-01-2019 Hemoglobin (Bld) [Mass/Vol] 8.1 g/dL Low 13.0-17.0 [facility] Comment on above: Performed By: #### H GB #### [facility] [address] [place] [id number] Eyeglass Lens Grinder: Kehinde Woodward MD Hemoglobin (Bld) [Mass/Vol] 8.1 g/dL Low 13 - 17 g/dL [place] Interpretation and review of laboratory results Abnormal [place] Hgb/Hcton 06-10-2019 Hematocrit (Bld) [Volume fraction] 24.3 % Low 40.7-50.3 [facility] Comment on above: Performed By: #### H H #### [facility] [address] [place] [id number] Eyeglass Lens Grinder: Kehinde Woodward MD Hemoglobin (Bld) [Mass/Vol] 7.4 g/dL Low 13.0-17.0 [facility] Comment on above: Performed By: #### H H #### [facility] [address] [place] [address] Eyeglass Lens Grinder: Kehinde Woodward MD Hemoglobinon 06-01-2019 Hemoglobin (Bld) [Mass/Vol] 7.2 g/dL Low 13.0-17.0 [facility] Comment on above: Performed By: #### H GB #### [facility] [address] [place] [address] Eyeglass Lens Grinder: Kehinde Woodward MD K (Potassium)on 01-14-2019 Potassium [Moles/Vol] 3.6 mmol/L Low 3.7-5.3 [facility] Comment on above: Performed By: #### K #### [facility] [address] [place] [address] Eyeglass Lens Grinder: Kehinde Woodward MD Otheron 10-19-2018 IMPRESSION: 1. [...] characteristics determined by Toxicology Laboratory at [facility]. It has not been cleared or [...] Amitriptyline(50), Amphetamine(250), Atenolol(500), Barbiturates(1000), Benzoylecgonine(50), Buprenorphine(50), Bupropion(25), Caffeine(51147), Chlordiazepoxide(50), Chlorpheniramine(100), Chlorpromazine(50), Citalopram(100), Clonazepam(200), Cocaine(25), Codeine(200), [...] LAB, [facility] TOXICOLOGY SCREEN URINE - UD [facility] 10-12-2018 Drugs identified Screen Nom (U) For Medical Purposes Only, Non-forensic, screen results are presumptive. No confirmatory testing will follow. Invalid Interpretation Code LAB, [facility] Comment on above: This Liquid Chromato graphy Mass Spectrometry (LC/MS/MS) test was developed and its performance characteristics determined by Toxicology Laboratory at [facility]. It has not been cleared or [...] Amitriptyline(50), Amphetamine(250), Atenolol(500), Barbiturates(200), Benzoylecgonine(50), Buprenorphine(500), Bupropion(25), Caffeine(55789), Cannabinoids(THC)(50), Chlordiazepoxide(50), Chlorpheniramine(100), Chlorpromazine(50), Citalopram(100), Clonazepam(200), Cocaine(25), [...] 56 mm[Hg] Candie Almaguer MD Work Phone: [facility] 02-26-2024 09:07-0400 Heart rate 65 /min Candie Almaguer MD Work Phone: [facility] 02-26-2024 09:07-0400 Systolic blood pressure 113 mm[Hg] Candie Almaguer MD Work Phone: [facility] 02-26-2024 09:06-0400 Body height 170.2 cm Candie Almaguer MD Work Phone: [facility] 02-26-2024 09:06-0400 Body mass index (BMI) [Ratio] 28.9 kg/m2 Candie Almaguer MD Work Phone: [facility] 02-26-2024 09:06-0400 Body weight 83.69 kg Candie Almaguer MD Work Phone: [facility] 02-26-2024 09:06-0400 Respiratory rate 20 /min Candie Almaguer MD Work Phone: [facility] 02-26-2024 09:06-0400 SaO2% (BldA) [Mass fraction] 97 % Candie Almaguer MD Work Phone: [facility] 01-23-2024 15:04-0500 Body temperature 97.9 [degF] Kevin Prince MD Work Phone: [facility] 01-23-2024 15:04-0500 Diastolic blood pressure 67 mm[Hg] Kevin Prince MD Work Phone: [facility] 01-23-2024 15:04-0500 Heart rate 51 /min Kevin Prince MD Work Phone: [facility] 01-23-2024 15:04-0500 Respiratory rate 16 /min Kevin Prince MD Work Phone: [facility] 01-23-2024 15:04-0500 SaO2% (BldA) [Mass fraction] 94 % Kevin Prince MD Work Phone: [facility] 01-23-2024 15:04-0500 Systolic blood pressure 151 mm[Hg] Kevin Prince MD Work Phone: [facility] 01-23-2024 10:46-0500 Body mass index (BMI) [Ratio] 30.94 kg/m2 Kevin Prince MD Work Phone: [facility] 01-23-2024 10:46-0500 Body weight 89.6 kg Kevin Prince MD Work Phone: [facility] 01-18-2024 11:21-0500 Body height 170.2 cm Kevin Prince MD Work Phone: [facility] 01-06-2024 09:04-0500 Body height 170.2 cm Zuly Bruno FURNITURE DUSTER Work Phone: [facility] 01-06-2024 09:04-0500 Body mass index (BMI) [Ratio] 32.42 kg/m2 Zuly Bruno FURNITURE DUSTER Work Phone: [facility] 01-06-2024 09:04-0500 Body temperature 97.81 [degF] Zuly Bruno FURNITURE DUSTER Work Phone: [facility] 01-06-2024 09:04-0500 Body weight 93.89 kg Zulytray Owenhholz FURNITURE DUSTER Work Phone: [facility] 01-06-2024 09:04-0500 Diastolic blood pressure 70 mm[Hg] Zuly Aichholz FURNITURE DUSTER Work Phone: [facility] 01-06-2024 09:04-0500 Heart rate 95 /min Zuly Aichholz FURNITURE DUSTER Work Phone: [facility] 01-06-2024 09:04-0500 Respiratory rate 17 /min Zuly Aichholz FURNITURE DUSTER Work Phone: [facility] 01-06-2024 09:04-0500 SaO2% (BldA) [Mass fraction] 99 % Zuly Kristopherhholz FURNITURE DUSTER Work Phone: [facility] 01-06-2024 09:04-0500 Systolic blood pressure 138 mm[Hg] Zuly Aichholz FURNITURE DUSTER Work Phone: [facility] 09-11-2023 10:31-0400 Body temperature 97.81 [degF] Steve Yeison MBBS Work Phone: [facility] 09-11-2023 10:31-0400 Diastolic blood pressure 66 mm[Hg] Steve Yeison MBBS Work Phone: [facility] 09-11-2023 10:31-0400 Heart rate 70 /min Steve Yeison MBBS Work Phone: [facility] 09-11-2023 10:31-0400 Respiratory rate 20 /min Steve Yeison MBBS Work Phone: [facility] 09-11-2023 10:31-0400 SaO2% (BldA) [Mass fraction] 91 % Steve Yeison MBBS Work Phone: [facility] 09-11-2023 10:31-0400 Systolic blood pressure 129 mm[Hg] Steve Yeison MBBS Work Phone: [facility] 09-10-2023 15:50-0400 Body mass index (BMI) [Ratio] 31.99 kg/m2 Steve Yeison MBBS Work Phone: [facility] 09-10-2023 15:50-0400 Body weight 92.67 kg Steve Yeison MBBS Work Phone: [facility] 09-02-2023 07:32-0400 Body height 170.2 cm Steve Yeison MBBS Work Phone: [facility] 08-28-2023 13:33-0400 Body height 170.2 cm Steve Yeison MBBS Work Phone: [facility] 08-28-2023 13:33-0400 Body mass index (BMI) [Ratio] 32.12 kg/m2 Steve Yeison MBBS Work Phone: [facility] 08-28-2023 13:33-0400 Body temperature 97.3 [degF] Steve Yeison MBBS Work Phone: [facility] 08-28-2023 13:33-0400 Body weight 93.03 kg Steve Yeison MBBS Work Phone: [facility] 08-28-2023 13:33-0400 Diastolic blood pressure 41 mm[Hg] Steve Yeison MBBS Work Phone: [facility] 08-28-2023 13:33-0400 Heart rate 116 /min Steve Yeison MBBS Work Phone: [facility] 08-28-2023 13:33-0400 Systolic blood pressure 106 mm[Hg] Steve Yeison MBBS Work Phone: [facility] 06-12-2023 14:50-0400 Body mass index (BMI) [Ratio] 33.8 kg/m2 Rebeca Gutierrez VETERINARY MICROBIOLOGIST-TANK BUILDER Work Phone: [facility] 06-12-2023 14:50-0400 Body temperature 97.3 [degF] Rebeca Gutierrez VETERINARY MICROBIOLOGIST-TANK BUILDER Work Phone: [facility] 06-12-2023 14:50-0400 Body weight 97.89 kg Rebeca Gutierrez VETERINARY MICROBIOLOGIST-TANK BUILDER Work Phone: [facility] 06-12-2023 14:50-0400 Diastolic blood pressure 77 mm[Hg] Rebeca Gutierrez VETERINARY MICROBIOLOGIST-TANK BUILDER Work Phone: [facility] 06-12-2023 14:50-0400 Heart rate 76 /min Rebeca Gutierrez VETERINARY MICROBIOLOGIST-TANK BUILDER Work Phone: [facility] 06-12-2023 14:50-0400 Systolic blood pressure 146 mm[Hg] Rebeca Gutierrez VETERINARY MICROBIOLOGIST-TANK BUILDER Work Phone: [facility] 01-16-2023 08:57-0500 Body height 170.2 cm [facility] Work Phone: [facility] 01-16-2023 08:57-0500 Body mass index (BMI) [Ratio] 33.66 kg/m2 [facility] Work Phone: [facility] 01-16-2023 08:57-0500 Body temperature 97.3 [degF] [facility] Work Phone: [facility] 01-16-2023 08:57-0500 Body weight 97.48 kg [facility] Work Phone: [facility] 01-16-2023 08:57-0500 Diastolic blood pressure 75 mm[Hg] [facility] Work Phone: [facility] 01-16-2023 08:57-0500 Heart rate 76 /min [facility] Work Phone: [facility] 01-16-2023 08:57-0500 Systolic blood pressure 142 mm[Hg] [facility] Work Phone: [facility] 09-10-2022 09:38-0400 Body height 170.2 cm Ryan Yepez MD Work Phone: [facility] 09-10-2022 09:38-0400 Body mass index (BMI) [Ratio] 33.67 kg/m2 Ryan Yepez MD Work Phone: [facility] 09-10-2022 09:38-0400 Body weight 97.52 kg Ryan Yepez MD Work Phone: [facility] 09-10-2022 09:38-0400 Diastolic blood pressure 83 mm[Hg] Ryan Yepez MD Work Phone: [facility] 09-10-2022 09:38-0400 Heart rate 64 /min Ryan Yepez MD Work Phone: [facility] 09-10-2022 09:38-0400 SaO2% (BldA) [Mass fraction] 96 % Ryan Yepez MD Work Phone: [facility] 09-10-2022 09:38-0400 Systolic blood pressure 129 mm[Hg] Ryan Yepez MD Work Phone: [facility] 07-07-2022 13:48-0400 Diastolic blood pressure 76 mm[Hg] Ryan Yepez MD Work Phone: [facility] 07-07-2022 13:48-0400 Heart rate 82 /min Ryan Yepez MD Work Phone: [facility] 07-07-2022 13:48-0400 SaO2% (BldA) [Mass fraction] 96 % Ryan Yepez MD Work Phone: [facility] 07-07-2022 13:48-0400 Systolic blood pressure 141 mm[Hg] Ryan Yepez MD Work Phone: 2(603)291-845464 [address] 06-27-2022 13:32-0400 Body height 170.2 cm Ryan Yepez MD Work Phone: 7(917)661-680564 [address] 06-27-2022 13:32-0400 Body mass index (BMI) [Ratio] 34.24 kg/m2 Ryan Yepez MD Work Phone: 3(862)[phone] [place] [address] 06-27-2022 13:32-0400 Body temperature 98.6 [degF] Ryan Yepez MD Work Phone: 2(969)[phone] [place] [address] 06-27-2022 13:32-0400 Body weight 99.16 kg Ryan Yepez MD Work Phone: 0(452)759-123364 [address] 06-27-2022 13:32-0400 Diastolic blood pressure 78 mm[Hg] Ryan Yepez MD Work Phone: 0(537)538-324064 [address] 06-27-2022 13:32-0400 Heart rate 77 /min Ryan Yepez MD Work Phone: 4(301)[phone] [place] [address] 06-27-2022 13:32-0400 SaO2% (BldA) [Mass fraction] 95 % Ryan Yepez MD Work Phone: [facility] 06-27-2022 13:32-0400 Systolic blood pressure 121 mm[Hg] Ryan Yepez MD Work Phone: [facility] 06-27-2022 10:52-0400 Body height 170.2 cm Rena Brewster RN [facility] 06-27-2022 10:52-0400 Body mass index (BMI) [Ratio] 34.46 kg/m2 Rena Brewster RN [facility] 06-27-2022 10:52-0400 Body temperature 98.2 [degF] Rena Brewster RN [facility] 06-27-2022 10:52-0400 Body weight 99.79 kg Rena Brewster RN [facility] 06-27-2022 10:52-0400 Diastolic blood pressure 73 mm[Hg] Rena Brewster RN [facility] 06-27-2022 10:52-0400 Heart rate 78 /min Rena Brewster RN [facility] 06-27-2022 10:52-0400 Respiratory rate 20 /min Rena Brewster RN [facility] 06-27-2022 10:52-0400 SaO2% (BldA) [Mass fraction] 97 % Rena Brewster RN [facility] 06-27-2022 10:52-0400 Systolic blood pressure 135 mm[Hg] Rena Brewster RN [facility] 06-12-2022 14:23-0400 Body mass index (BMI) [Ratio] 34.59 kg/m2 Steve Yeison MBBS Work Phone: [facility] 06-12-2022 14:23-0400 Body temperature 97 [degF] Steve Yeison MBBS Work Phone: [facility] 06-12-2022 14:23-0400 Body weight 100.2 kg Steve Yeison MBBS Work Phone: [facility] 06-12-2022 14:23-0400 Diastolic blood pressure 66 mm[Hg] Steve Yeison MBBS Work Phone: [facility] 06-12-2022 14:23-0400 Heart rate 63 /min Steve Yeison MBBS Work Phone: [facility] 06-12-2022 14:23-0400 Systolic blood pressure 133 mm[Hg] Steve LEIGH Work Phone: [facility] 05-20-2022 15:21-0400 Body temperature 97.9 [degF] Gian Villatoro MD Work Phone: [facility] 05-20-2022 15:21-0400 Diastolic blood pressure 64 mm[Hg] Gian Villatoro MD Work Phone: [facility] 05-20-2022 15:21-0400 Heart rate 55 /min Gian Villatoro MD Work Phone: [facility] 05-20-2022 15:21-0400 Respiratory rate 15 /min Gian Villatoro MD Work Phone: [facility] 05-20-2022 15:21-0400 SaO2% (BldA) [Mass fraction] 95 % Gian Vilaltoro MD Work Phone: [facility] 05-20-2022 15:21-0400 Systolic blood pressure 145 mm[Hg] Gian Villatoro MD Work Phone: [facility] 05-19-2022 12:15-0400 Body mass index (BMI) [Ratio] 35.87 kg/m2 Gian Villatoro MD Work Phone: [facility] 05-19-2022 12:15-0400 Body weight 103.92 kg Gian Villatoro MD Work Phone: [facility] Comment on above: standing scale 05-16-2022 16:19-0400 Body height 170.2 cm Gian Villatoro MD Work Phone: [facility] 10-19-2018 08:44-0500 BMI (Body Mass Index) 26.58 kg/m2 [facility] Work Phone: 10-19-2018 08:44-0500 BP Diastolic 76 mm[Hg] [facility] Work Phone: 10-19-2018 08:44-0500 BP Systolic 144 mm[Hg] [facility] Work Phone: 10-19-2018 08:44-0500 Height 172.7 cm [facility] Work Phone: 10-19-2018 08:44-0500 Pulse (Heart Rate) 92 /min [facility] Work Phone: 10-19-2018 08:44-0500 Pulse Oximetry 99 % [facility] Work Phone: 10-19-2018 08:44-0500 Respiratory Rate 16 /min [facility] Work Phone: 10-19-2018 08:44-0500 Weight 79.29 kg [facility] Work Phone: 10-12-2018 09:50-0500 BMI (Body Mass Index) 27.24 kg/m2 [facility] Work Phone: 10-12-2018 09:50-0500 Body Temperature 98.6 [degF] [facility] Work Phone: 10-12-2018 09:50-0500 BP Diastolic 80 mm[Hg] [facility] Work Phone: 10-12-2018 09:50-0500 BP Systolic 157 mm[Hg] [facility] Work Phone: 10-12-2018 09:50-0500 Height 169.5 cm Alfredito [facility] Work Phone: 10-12-2018 09:50-0500 Pulse (Heart Rate) 94 /min [facility] Work Phone: 10-12-2018 09:50-0500 Weight 78.29 kg Shaunamatthew [facility] Work Phone: Encounters Encounter Date Encounter Type Care Provider Facility Start: 04-18-2024 End: 04-18-2024 ambulatory ZULY KIANA Not Available Start: 03-24-2024 End: 03-24-2024 Patient encounter procedure Angel Carpio [facility],PharmD Pharmacy Outpatient [facility] [place] Start: 03-24-2024 End: 03-24-2024 ambulatory Angel Carpio [facility],PharmJenna Pharm[facility] Outpatient [facility] [place] Start: 03-22-2024 End: 03-22-2024 ambulatory JOHNNA BRINK Not Available Start: 03-17-2024 End: 03-17-2024 ambulatory JOHNNA BRINK Not Available Start: 03-14-2024 End: 03-14-2024 ambulatory FIDELINA BAKARIY Not Available Start: 03-10-2024 End: 03-10-2024 ambulatory JOHNNA BRINK Not Available Start: 03-08-2024 End: 03-08-2024 ambulatory JOHNNA BRINK Not Available Start: 03-03-2024 End: 03-03-2024 ambulatory JOHNNA BRINK Not Available Start: 03-02-2024 End: 03-02-2024 ambulatory Meka Munoz [facility] Pharm[facility] Outpatient [facility] [place] Start: 03-02-2024 End: 03-02-2024 Patient encounter procedure Meka Munoz [facility] Pharmacy Outpatient RX [place] Start: 03-01-2024 ambulatory ZULY KIANA Facility: [facility] Start: 03-01-2024 End: 03-01-2024 ambulatory JOHNAN BRINK Not Available Start: 02-26-2024 ambulatory ZULY KIANA Facility: [facility] Start: 02-26-2024 ambulatory ZULY AICHHOLZ Facility: [facility] Start: 02-26-2024 End: 02-26-2024 Office outpatient new 30 minutes Candie Almaguer MD Work Phone: [facility] Comment on above: Heart failure, diast olic, acute (Primary Dx) Start: 02-25-2024 End: 02-25-2024 ambulatory FIDELINA SANCHEZ Not Available Start: 02-23-2024 End: 02-23-2024 ambulatory PALMA PALACIOS Not Available Start: 02-11-2024 End: 02-11-2024 ambulatory ZULY AICLydiaHOLZ Not Available Start: 01-16-2024 Encounter for other preprocedural examination KELVIN PACHECO [facility] Start: 01-16-2024 End: 01-23-2024 Evaluation and management of inpatient KEVIN PRINCE Facility:[facility] Start: 01-16-2024 End: 01-23-2024 Evaluation and management of inpatient Kevin Prince MD Work Phone: [id number] Comment on above: Pleural effusion on right Start: 01-16-2024 End: 01-23-2024 Patient encounter status Kevin Prince MD Work Phone: [facility] Work Phone: Start: 01-12-2024 End: 01-12-2024 ambulatory Angel Fete RPh,PharmD Pharmacy [place]patient [place] [place] Start: 01-12-2024 End: 01-12-2024 Patient encounter procedure Angel Fete RPh,PharmD Pharmacy Outpatient RX [place] Start: 01-08-2024 Clinisync Result Encounter Generic External Data Provider [facility] External Department Unsolicited Start: 01-08-2024 Clinisync Result Encounter Generic External Data Provider [facility] External Department Unsolicited Start: 01-06-2024 End: 01-06-2024 ambulatory ZULY AICHHOLZ Not Available Start: 01-06-2024 End: 01-06-2024 Office outpatient visit 25 minutes Zuly Kiana FURNITURE DUSTER Work Phone: [facility] Comment on above: Bilateral lower extr emity edema (Primary Dx); 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); Atherosclerosis 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); Obesity (BMI 30-39.9); DARLENE (obstructive sleep apnea); Tremor; Immunocompromised (CMS/HCC); Primary hypertension (CMS/HCC); Shortness of breath Start: 01-01-2024 Clinisync Result Encounter Generic External Data Provider NOMS External Department Unsolicited Start: 01-01-2024 Clinisync Result Encounter Generic External Data Provider N[facility]S External Department Unsolicited Start: 11-03-2023 End: 11-03-2023 ambulatory ZULY KIANA Not Available Start: 10-06-2023 ambulatory Angel Shirin [facility],PharmD Pharmacy Outpatient RX [place] Start: 10-06-2023 Patient encounter procedure Angel Carpio [facility],PharmD Pharmacy Outpatient RX [place] Start: 09-29-2023 ambulatory ZULY KIANA Facility: [facility] Start: 09-24-2023 ambulatory ZULY KIANA Facility: [facility] Start: 09-23-2023 ambulatory HAKEEM ALAMO Facility :[facility] Start: 09-15-2023 [facility] Start: 08-28-2023 End: 09-11-2023 Evaluation and management of inpatient KEVIN PRINCE Facility:[facility] Start: 08-28-2023 End: 09-11-2023 Evaluation and management of inpatient Steve LEIGH Work Phone: [id number] Start: 08-28-2023 ambulatory STEVE S YEISON Facility:[facility] [...] rueda [facility] Pharmacy Outpatient RX [place] Start: 08-19-2023 Patient encounter procedure Meka Alexander [facility] Pharmacy Outpatient [facility] [place] Start: 06-12-2023 ambulatory SELF SELF Facility:[facility] Start: 06-12-2023 End: 06-12-2023 Office outpatient visit 25 minutes Steve LEIGH Work Phone: [facility] Transplant [facility] Comment on above: 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) Start: 06-10-2023 ambulatory Maren Bar RPh,PharmD Pharmacy Outpatient RX [place] Start: 06-10-2023 Patient encounter procedure Maren Bar RPh,PharmD Pharmacy Outpatient [facility] [place] Start: 05-26-2023 ambulatory ZULY BRUNO Facility: [facility] Start: 04-28-2023 End: 04-29-[address] DOCTOR EVANS Facility: Start: 04-13-2023 End: 04-13-2023 ambulatory [facility] Start: 03-12-2023 ambulatory Angel Fete RPh,PharmD Pharmacy Outpatient [facility] [place] Start: 03-12-2023 Patient encounter procedure Angel Fete RPh,PharmD Pharmacy Outpatient RX [place] Start: 03-10-2023 ambulatory Angel Fete RPh,PharmD Pharmacy Outpatient RX [place] Start: 03-10-2023 Patient encounter procedure Angel Fete RPh,PharmD Pharmacy Outpatient RX [place] Start: 03-02-2023 End: 03-03-[address] DOCTOR EVANS Facility:[facility] Start: 01-16-2023 End: 01-16-2023 Office outpatient visit 25 minutes Daisha Max DO Work Phone: [facility] Trans[facility] Comment on above: Abnormal blood chemi [...] MD Work Phone: [facility] Comment on above: BPH with obstruction /lower urinary tract symptoms (Primary Dx); Encounter for screening for malignant neoplasm of prostate Start: 08-28-2022 End: 08-29-2022 ambulatory ROB BRUNO Facility:[facility] Start: 08-14-2022 End: 08-15-[address] DOCTOR EVANS Facility:[facility] Start: 07-07-2022 End: 07-07-2022 Patient encounter procedure Ryan Yepez MD Work Phone: [facility] Comment on above: Other hydronephrosis (Primary Dx); -donor kidney transplant recipient Start: 07-07-2022 End: 07-07-2022 Subsequent hospital visit by physician Ryan Yepez MD Work Phone: Department of Radiology Comment on above: Arrived Start: 07-03-2022 End: 07-04-[address] DOCTOR EVANS Facility:[facility] Start: 07-03-2022 End: 07-04-[address] DOCTOR EAVNS Facility:[facility] Start: 06-27-2022 End: 06-27-2022 Office outpatient visit 25 minutes Ryan Yepez MD Work Phone: [facility] Comment on above: Other hydronephrosis (Primary Dx) Start: 06-27-2022 End: 06-27-2022 Subsequent hospital visit by physician Ryan Yepez MD Work Phone: Department of Radiology Comment on above: Arrived Start: 06-27-2022 End: 06-27-2022 Patient encounter procedure Enzo Heart DO Work Phone: [facility] Comment on above: Attention to nephros pilo (Primary Dx) Start: 06-18-2022 End: 06-18-2022 ambulatory KE Gavin Facility:[facility] Start: 06-12-2022 End: 06-12-2022 Office outpatient [...] LAWRENCE Facility:[facility] Start: 03-14-2022 ambulatory Comfort Rivera [facility] Work Phone: Pharmacy Outpatient RX [place] Start: 03-14-2022 Patient encounter procedure Comfort Rivera [facility] Work Phone: Pharmacy Outpatient RX [place] Start: 06-14-2021 End: 06-14-2021 ambulatory Comfort Rivera [facility] Work Phone: [facility] Start: 06-14-2021 Patient encounter procedure Comfort Rivera [facility] Work Phone: [facility] Start: 01-20-2020 End: 01-27-2020 Patient encounter procedure PEPE CASE Facility:[facility] Start: 01-06-2020 End: 01-07-2020 Patient encounter procedure RENA GUDINO [facility] Start: 01-06-2020 End: 01-06-2020 Subsequent hospital visit by physician [facility] Start: 10-24-2019 End: 10-25-2019 Patient encounter procedure TANA CAMPA [facility] Start: 10-24-2019 End: 10-24-2019 Subsequent hospital visit by physician [facility] Start: 08-27-2019 End: 08-28-2019 Patient encounter procedure RENA GUDINO [facility] Start: 08-27-2019 End: 08-27-2019 Subsequent hospital visit by physician [facility] Start: 08-08-2019 End: 08-09-2019 Patient encounter procedure [facility] Start: 08-08-2019 End: 08-08-2019 Subsequent hospital visit by physician [facility] Start: 08-03-2019 End: 08-04-2019 Patient encounter procedure [facility] Start: 08-03-2019 End: 08-03-2019 Subsequent hospital visit by physician [facility] Start: 08-01-2019 End: 08-02-2019 Patient encounter procedure [facility] Start: 08-01-2019 End: 08-01-2019 Subsequent hospital visit by physician [facility] Start: 06-10-2019 End: 06-11-2019 [facility] Start: 06-01-2019 End: 06-02-2019 [facility] Start: 01-14-2019 End: 01-15-2019 [facility] encounter [facility] Start: 11-17-2018 End: 11-17-2018 [facility] Comment on above: Social Work Follow-u p Start: 10-19-2018 End: 10-19-2018 Patient encounter [facility] Pre Transplant Office Comment on above: Cirrhosis of liver w ithout ascites, unspecified hepatic cirrhosis type (Primary Dx) Start: 10-19-2018 End: 10-19-2018 Office outpatient visit 25 minutes Christin Elizabeth Work Phone: Division of Gastroenterology and Hepatology [place] Comment on above: Alcoholic cirrhosis of liver without ascites (Primary Dx); Pre-transplant evaluation for liver transplant; Hepatic encephalopathy Start: 10-13-2018 End: 10-13-2018 Patient encounter procedure [facility] Pre Transplant Office Comment on above: Reschedule Outside Medical Allan rds Request Start: 10-12-2018 End: 10-12-2018 Patient encounter procedure Sophie Cary [facility] [place] Pre Transplant Office Comment on above: Alcoholic cirrhosis, unspecified whether ascites present (Primary Dx); Pre-transplant evaluation for liver transplant Start: 10-12-2018 End: 10-12-2018 Office outpatient new 60 minutes Alfredito Restrepo Work Phone: [facility] [place] Pre Transplant Office Comment on above: Alcoholic cirrhosis, unspecified whether ascites present; ESRD (end stage renal disease) on dialysis; Pre-transplant evaluation for liver transplant Start: 10-06-2018 End: 10-06-2018 Patient encounter procedure Yovani Orr Work Phone: Department of Radiology Comment on above: Canceled (Insurance Company Redirected Pt) Start: 10-05-2018 Patient encounter status Comfort Rivera [facility] Work Phone: [facility] Procedures Date Procedure Procedure Detail Performing Clinician Start: 01-23-2024 Glucose measurement, blood Kelvin Pacheco MD, LU Work Phone: Start: 01-23-2024 Glucose measurement, blood Kelvin Pacheco MD, MBAPOORVA Work Phone: Start: 01-23-2024 Assay of magnesium [...] on above: Performed By: #### X M ####[facility] ([facility])[address] [place] [address] Start: 01-22-2024 Assay of magnesium Just in [...] nos quantifica tion each organism Fidelina Alarcon [facility] Work Phone: Start: [...] AURIS SCREEN BY PCR Carol Ann Capps VETERINARY MICROBIOLOGIST-AUCTION BLOCK CLERK Work Phone: Start: 01-08-2024 ALL CBC WITH AUTO DIFF Generic External Data Provider Start: 01-01-2024 ALL CBC WITH AUTO DIFF Generic External Data Provider Start: 09-23-2023 Follow-up visit Follow-up HAKEEM ALAMO Start: 09-11-2023 Glucose measurement, blood Kevin Prinec MD Work Phone: Start: 09-11-2023 Assay of [...] AURIS SCREEN BY PCR Carol Ann Capps VETERINARY MICROBIOLOGIST-AUCTION BLOCK CLERK Work Phone: Start: 08-28-2023 CBC AND ELECTRONIC [...] above: Performed By: #### C MP #### [facility] [address] [place] [address] Dr. Dwight Waters Start: 07-07-2022 Rmvl nfros tube req fluoro guidance Ryan Yepez MD Work Phone: Start: 06-27-2022 Ct abdomen & pelvis w/o contrast material Evan Byrd MD Work Phone: Start: 06-12-2022 Culture bct isol&prs mptv id isolate ea urine Steve Farrari MBBS Work Phone: Start: 06-12-2022 EXTRA MICRO Steve S Nor i MBBS Work Phone: Start: 06-12-2022 Hemoglobin glycosylated a1c Stevemassiel Farrari MBBS Work Phone: Start: 06-12-2022 Hepatic function panel Yovani Orr MD Work Phone: Start: 06-12-2022 URINALYSIS REFLEX TO CULTURE Steve Farrari BS Work Phone: Start: 05-20-2022 Urography antegrade rs&i [...] Start: 01-06-2020 Potassium serum plasma/whole blood Rena Gudino Work Phone: Start: 10-24-2019 HEMOGLOBIN AND HEMAT OCRIT, BLOOD ROB PATINO Start: 10-24-2019 Blood count hemoglobin Tana S Cornelar Work Phone: Start: 09-20-2019 Colonoscopy Generic Pr [...] Start: 01-14-2019 Potassium serum plasma/whole blood ROB JO-ANNI Start: 10-19-2018 End: 10-19-2018 Ultrasonography of abdomen Yovani Ruizannie Work Phone: Start: 10-12-2018 End: 10-12-2018 Blood typing serologic abo Yovani Mejias Dominga Work Phone: Start: 10-12-2018 End: 10-12-2018 Hemoglobin glycosylated a1c Yovani Mejias Josephannie Work Phone: Start: 10-12-2018 End: 10-12-2018 25 [...] 10-12-2018 End: 10-12-2018 Antibody rubeola Yovani Mejias [employer] Work Phone: Start: 10-12-2018 End: 10-12-2018 Antibody varicella-zoster Yovani Mejias [employer] Work Phone: Start: 10-12-2018 End: 10-12-2018 Assay of ethanol Yovani Orr Work Phone: Start: 10-12-2018 End: 10-12-2018 Assay of ferritin Yovani Mejias [employer] Work Phone: Start: 10-12-2018 End: 10-12-2018 Assay of iron Yovani Mejias [employer] Work Phone: Start: 10-12-2018 End: 10-12-2018 Assay of parathormone Yovani Mejias [employer] Work Phone: Start: 10-12-2018 End: 10-12-2018 Assay of phosphatase alkaline Yovani Orr [employer] Phone: Start: 10-12-2018 End: 10-12-2018 Bilirubin total Yovani Orr Work Phone: Start: 10-12-2018 End: 10-12-2018 Calcium total Yovani Mejias [employer] Work Phone: Start: 10-12-2018 End: 10-12-2018 CBC, [...] 10-12-2018 Iaad ia hepatitis b surface antigen Yvoani Orr Work Phone: Start: 10-12-2018 End: 10-12-2018 [...] transplant Kidn ey replaced by transplant Steve Katarzyna Yeison MBBS Work Phone: History of renal transplant Dece ased-donor kidney transplant recipient Ryan Yepez MD Work Phone: History of renal transplant Kidn ey replaced by transplant Daisha A Winter DO Work Phone: History of renal transplant Kidn ey replaced by transplant Steve S Yeison MBBS Work Phone: History of renal transplant Kidn ey replaced by transplant Steve S Yeison MBBS Work Phone: History of renal transplant Dece ased-donor kidney transplant recipient Steve S Yeison MORENOBS Work Phone: Plan of Treatment Date Care Activity Detail Author Start: 09-20-2029 Screening for malignant neoplasm of colon [facility] Start: 03-28-2025 Potassium [Moles/volume] in Serum or Plasma POTASSIUM [facility] Start: 03-21-2025 Potassium [Moles/volume] in Serum or Plasma POTASSIUM [facility] Start: 02-28-2025 Potassium [Moles/volume] in Serum or Plasma POTASSIUM [facility] Start: 01-23-2025 Potassium [Moles/volume] in Serum or Plasma POTASSIUM [facility] Start: 08-31-2024 Screening for malignant neoplasm of lung [facility] Start: 06-17-2024 End: 06-17-2024 ambulatory [facility] Start: 06-17-2024 End: 06-17-2024 Patient encounter procedure [facility] Start: 03-22-2024 Fasting lipid profile LIPID SCREENING [facility] Start: 03-22-2024 Lipid panel [facility] Start: 02-26-2024 End: 02-26-2024 Patient encounter procedure 02/26/2024 9:30 AM EDT Office Visit Director [facility] Kehinde Dalila [facility] [address] [address] Candie Almaguer MD [address] [place] [address] Director Medical Safety Center Kehinde Dalila [facility] Start: 02-11-2024 End: 02-11-2024 Patient encounter procedure 02/11/2024 10:30 AM EDT Office Visit [facility] [address] [place] [address] Zuly Bruno, BA [address] [place] [address] [facility] Start: 02-09-2024 End: 02-09-2024 Telemedicine consultation with patient 02/09/2024 3:30 PM EDT Telemedicine Infectious Diseases Care [facility] [address] [facility] [address] [place] [phone] Hakeem Alamo MD [address] [facility] [address] [place], [place] [phone] Infectious Diseases Care [facility] Start: 01-15-2024 End: 01-15-2024 ambulatory [facility] Start: 01-15-2024 End: 01-15-2024 Patient encounter procedure [facility] [...] EST Office Visit [facility] Rod [address] [place] [phone] Zuly Bruno, FURNITURE DUSTER [address] [place] [address] PINO RUSSELL Start: 12-08-2023 End: 09-07-2024 CT Chest WO contrast [facility] Work Phone: Start: 12-01-2023 COVID-19 VACCINE (2 - Moderna risk series) COVID-19 VACCINE (2 - Moderna risk series) [facility] Start: 09-23-2023 End: 09-23-2023 ambulatory Infectious Diseases Care [facility] Start: 09-23-2023 End: 09-23-2023 Telemedicine consultation with patient 09/23/2023 4:00 PM EDT Telemedicine Infectious Diseases Care [facility] [address] [facility] [address] [place] [address] Hakeem Alamo MD [address] [place] [address] Infectious Diseases Care [facility] Start: 09-15-2023 End: 09-10-2024 ITRACONAZOLE LEVEL [facility] Start: 08-25-2023 End: 08-25-2024 ALLOSCREEN RECIPIENT (POST TX PRA) ALLOSCREEN RECIPIENT (POST TX PRA) Lab Routine Kidney replaced by transplant Aftercare following organ transplant Immunosuppressed status High risk medication use Other general symptoms and signs Abnormal blood chemistry Expected: 08/25/2023, Expires: 08/25/2024 [facility] Comment on above: Expected: 08/25/2023, Expires: Start: 07-31-2023 Influenza vaccination [facility] Start: 06-12-2023 End: 06-12-2023 Patient encounter procedure 06/12/2023 Office Visit Transplant Surgery Steve Munoz MBBS [address] [place] [phone] [facility] Start: 03-11-2023 End: 03-11-2023 Telemedicine consultation with patient 03/11/2023 Telemedicine Urology Ryan Yepez MD [address] [facility] [address] [place] [address] [facility] Start: 01-16-2023 End: 01-16-2023 Patient encounter procedure 01/16/2023 Office Visit Transplant Surgery [facility] Start: 10-31-2022 End: 10-31-2022 Patient encounter procedure 10/31/2022 Office Visit Transplant Surgery Steve Munoz, LU [address] [place] [phone] [facility] Start: 09-10-2022 End: 09-10-2023 PSA screening PSA, SCREENING Lab Routine BPH with obstruction/lower urinary tract symptoms Encounter for screening for malignant neoplasm of prostate Expected: 09/10/2022 (Approximate), Expires: 09/10/2023 [facility] Comment on above: Expected: 09/10/2022 (Approximate), Expi res: 09/10/2023 Start: 08-11-2022 End: 08-11-2022 Patient encounter procedure 08/11/2022 Office Visit Urology Ryan Yepez MD [address] [facility] [address] [place] [phone] [facility] Start: 07-31-2022 Influenza vaccination [facility] Start: 07-07-2022 End: 07-07-2022 Patient encounter procedure 07/07/2022 Office Visit Ryan Webster MD [address] [facility] [address] [place] [phone] [facility] Start: 07-07-2022 End: 07-07-2023 FLUORO IMAGING FOR UROLOGY [facility] Comment on above: Expected: 07/07/2022, Expires: 3 1 Occurrences starti ng 07/07/2022 until 07/07/2022 Start: 06-27-2022 End: 06-27-2022 Patient encounter procedure 06/27/2022 Office Visit Urology Ryan Yepez MD [address] [facility] [address] [place] [address] [facility] Start: 06-27-2022 End: 06-27-2023 Basic metabolic 2000 panel - Serum or Plasma BASIC METABOLIC PANEL Lab Routine Other hydronephrosis Expected: 06/27/2022, Expires: 06/27/2023 [facility] Comment on above: Expected: 06/27/2022, Expires: Start: 06-27-2022 End: 06-27-2022 Patient encounter procedure 06/27/2022 Appointment Computerized Tomography Scan Ryan Yepez MD [address] [place] [address] [address] [place] [phone] Department of Radiology Start: 06-15-2022 End: 05-16-2023 CT Abdomen and Pelvis WO contrast CT ABDOMEN/PELVIS WITHOUT CONTRAST Imaging Routine FAYE (acute kidney injury) Expected: 06/15/2022 (Approximate), Expires: 05/16/2023 [facility] Work Phone: Comment on above: Expected: 06/15/2022 (Approximate), Expi res: 05/16/2023 Start: 06-12-2022 End: 06-12-2022 Patient encounter procedure 06/12/2022 Office Visit Transplant Surgery Steve Munoz MBBS [address] [place] [phone] [facility] Start: 06-11-2022 End: 06-11-2023 BK VIRUS DNA QN, PCR, PLASMA BK VIRUS DNA QN, PCR, PLASMA Lab Routine Kidney replaced by transplant Liver replaced by transplant Abnormal blood chemistry Expected: 06/11/2022, Expires: 06/11/2023 [facility] Comment on above: Expected: 06/11/2022, Expires: Start: 06-04-2022 End: 06-04-2022 Patient encounter procedure 06/04/2022 Office Visit Interventional [facility]iology [facility] Start: 10-18-2021 End: 10-18-2021 Patient encounter procedure 10/18/2021 Office Visit Transplant Surgery Steve Munoz, LU [address] [place] [phone] [facility] Start: 07-31-2021 Influenza vaccination INFLUENZA VACCINE (#1) [facility] Start: 07-26-2021 End: 07-26-2021 Patient encounter procedure 07/26/2021 Office Visit Transplant Surgery [facility] Start: 2021 Prostate specific antigen measurement [facility] Start: 2021 Screening for malignant neoplasm of lung LUNG CANCER SCREENING [facility] Start: 2021 Zoster vaccine hzv live for subcutaneous use ZOSTER (SHINGLES) VACCINE (1 of 2) [facility] Start: 09-20-2020 Colonoscopy COLORECTAL CANCER SCREENING DISCUSSION [facility] Start: 09-20-2020 Screening for malignant neoplasm of colon [facility] Start: 07-31-2019 Influenza vaccination Flu vaccine (#1) [place], [place] Start: 05-22-2019 Annual Wellness Visit (AWV) Annual Wellness Visit (AWV) [place] Start: 04-18-2019 End: 10-19-2019 Ultrasonography of abdomen US ABDOMEN RUQ/LIVER/GB Routine Cirrhosis of liver without ascites, unspecified hepatic cirrhosis type Expected: 04/18/2019 (Approximate), Expires: 10/19/2019 [facility] Work Phone: Comment on above: Expected: 04/18/2019 (Approximate), Expi res: 10/19/2019 Start: 01-25-2019 End: 01-25-2019 Ambulatory 01/25/2019 Office Visit Gastroenterology Christin Elizabeth, VETERINARY MICROBIOLOGIST-TANK BUILDER [address] [place] [address] Division of Gastroenterology and Hepatology [place] Start: 11-19-2018 End: 11-19-2018 Ambulatory 11/19/2018 Appointment Pulmonary Diagnostics [facility] Start: 11-19-2018 End: 11-19-2018 Ambulatory [facility] Start: 10-19-2018 End: 10-19-2018 Ambulatory Ultrasound Jakob Start: 10-12-2018 End: 10-12-2019 Hemoglobin A1c/Hemoglobin.total mass fraction (Bld) HEMOGLOBIN A1C Routine Alcoholic cirrhosis, unspecified whether ascites present Pre-transplant evaluation for liver transplant Expected: 10/12/2018, Expires: 10/12/2019 [facility] Work Phone: Comment on above: Expected: 10/12/2018, Expires: 9 Start: 10-12-2018 End: 10-12-2019 TYPE AND SCREEN - NOT FOR TRANSFUSION TYPE AND SCREEN - NOT FOR TRANSFUSION Routine Alcoholic cirrhosis, unspecified whether ascites present Pre-transplant evaluation for liver transplant Expected: 10/12/2018, Expires: 10/12/2019 [facility] Work Phone: Comment on above: Expected: 10/12/2018, Expires: 9 Start: 07-31-2018 Influenza vaccination INFLUENZA VACCINE (#1) [facility] Work Phone: Start: 2011 Fasting lipid profile LIPID SCREENING [facility] Work Phone: Start: 2011 Lipid screen Lipid screen [place], [place] Start: 1990 DTaP/Tdap/Td vaccine (1 - Tdap) DTaP/Tdap/Td vaccine (1 - Tdap) [place], [place] Start: 1990 Hepatitis B vaccination HEP B VACCINE (1 of 3 - 19+ 3-dose series) [facility] Start: 1990 Hepatitis B Vaccine (1 of 3 - Risk Recombivax 3-dose series) Hepatitis B Vaccine (1 of 3 - Risk Recombivax 3-dose series) [place] Start: 1990 Third diphtheria, tetanus and acellular pertussis (DTaP) vaccination [facility] Start: 1990 Zoster vaccine hzv live for subcutaneous use ZOSTER (SHINGLES) VACCINE (1 of 2) [facility] Start: 1990 [facility] Start: 1989 Tetanus vaccination TETANUS [facility] Start: 1986 HIV screen HIV screen [place] Start: 02-17-1984 HIV screening HIV SCREENING DISCUSSION [facility] Work Phone: Start: 1983 COVID-19 VACCINE (1) COVID-19 VACCINE (1) [facility] Start: 1982 DTaP/Tdap/Td vaccine (1 - Tdap) DTaP/Tdap/Td vaccine (1 - Tdap) [place] Start: 1977 Pneumococcal 0-64 years Vaccine (1 of 3 - PCV13) Pneumococcal 0-64 years Vaccine (1 of 3 - PCV13) [place] Start: 1977 PNEUMOCOCCAL VACCINE SERIES (1 - PCV) PNEUMOCOCCAL VACCINE SERIES (1 - PCV) [facility] Start: 1977 PNEUMOCOCCAL VACCINE SERIES (1 of 2 - PCV) PNEUMOCOCCAL VACCINE SERIES (1 of 2 - PCV) [facility] Start: 1977 [facility] Start: 02-17-1976 COVID-19 VACCINE (#1) COVID-19 VACCINE (#1) [facility] Start: 02-17-1976 [facility] Start: 1971 COVID-19 VACCINE (#1) COVID-19 VACCINE (#1) [facility] Start: 1971 Hepatitis B vaccination HEP B VACCINE (1 of 3 - 3-dose series) [facility] Start: 1971 Medicare Annual Wellness (AWV) Medicare Annual Wellness (AWV) [facility] Start: 1971 Screening for malignant neoplasm of colon [facility] Start: 1971 Tetanus vaccination [facility] BK VIRUS DNA QN, PCR , PLASMA BK VIRUS DNA QN, PCR, PLASMA Lab Routine Kidney replaced by transplant Liver replaced by transplant Abnormal blood chemistry 06/12/2022 3:38 PM EDT [facility] CALCULI, URINARY (KIDNEY STONE) CALCULI, URINARY (KIDNEY STONE) Fluids Routine 05/19/2022 8:16 AM EDT [facility] Work Phone: CANNABINOIDS, QUANT (URINE)THC CONFIRMATION CANNABINOIDS, QUANT (URINE)THC CONFIRMATION Routine Alcoholic cirrhosis, unspecified whether ascites present ESRD (end stage renal disease) on dialysis Pre-transplant evaluation for liver transplant 10/12/2018 12:[address] [facility] Work Phone: End: 09-10-2024 CHEM 6 (LYTES, BUN CREA) [facility] EBV VCA IGG AB EBV VCA IGG AB R outine Alcoholic cirrhosis, unspecified whether ascites present ESRD (end stage renal disease) on dialysis Pre-transplant evaluation for liver transplant 10/12/2018 12:[address] [facility] Work Phone: Fungus identified in Unspecified specimen by Culture [facility] HLA TYPING (SOLID ORGAN) HLA TYPING (SOLID ORGAN) Routine Alcoholic cirrhosis, unspecified whether ascites present ESRD (end stage renal disease) on dialysis Pre-transplant evaluation for liver transplant 10/12/2018 12:[address] [facility] Work Phone: HSV 1 AND 2 IGG ANTIBODY HSV 1 AND 2 IGG ANTIBODY Routine Alcoholic cirrhosis, unspecified whether ascites present ESRD (end stage renal disease) on dialysis Pre-transplant evaluation for liver transplant 10/12/2018 12:[address] [facility] Work Phone: 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 specific culture [facility] PLACEMENT NEPHROSTOM Y CATHETER PERCUTANEOUS W/ IMAGE GUIDANCE PLACEMENT NEPHROSTOMY CATHETER PERCUTANEOUS W/ IMAGE GUIDANCE Imaging Routine Hydronephrosis due to obstruction of ureteral orifice FAYE (acute kidney injury) 05/17/2022 11:08 AM EDT [facility] MT POST VOID RESIDUAL MT POST VO ID RESIDUAL MT - OFFICE PERFORMED Routine BPH with obstruction/lower urinary tract symptoms Ordered: 09/10/2022 [facility] Comment on above: Ordered: 09/10/2022 PTH INTACT PTH INTACT Routi ne Alcoholic cirrhosis, unspecified whether ascites present ESRD (end stage renal disease) on dialysis Pre-transplant evaluation for liver transplant 10/12/2018 12:[address] [facility] Work Phone: RUBEOLA IGG AB (IMMU NE STATUS) RUBEOLA IGG AB (IMMUNE STATUS) Routine Alcoholic cirrhosis, unspecified whether ascites present ESRD (end stage renal disease) on dialysis Pre-transplant evaluation for liver transplant 10/12/2018 12:[address] [facility] Work Phone: End: 01-16-2024 Standard ECG ECG ECG Routine One Time for 1 Occurrences starting 01/16/2024 until 01/16/2024 [facility] Comment on above: One Time for 1 Occurrences starting 12/31 until 01/16/2024 End: 09-10-2024 TACROLIMUS LEVEL, TROUGH (PRE DRUG LEVEL) [facility] VARICELLA IGG AB (IM M STATUS) VARICELLA IGG AB (IMM STATUS) Routine Alcoholic cirrhosis, unspecified whether ascites present ESRD (end stage renal disease) on dialysis Pre-transplant evaluation for liver transplant 10/12/2018 12:[address] [facility] Work Phone: Immunizations Immunization Date Immunization Notes Care Provider Zeeshan yi 11-03-2023 influenza virus vacc ine, unspecified formulation Generic Provider [facility] 11-03-2023 Moderna SARS-CoV-2 50mcg/0.5mL Booster Generic Provider [facility] Payers Date Payer Category Payer Unknown [id number] 2019 Unknown [facility] [id number] 2019-Present [id number] [id number] 2018 [place] [facility] DEPT OF JOB xxxxxxxxxxxx 2018-Present [phone] [address] [place] [address] xxxxxxxxxxxx [id number] .[id number] 2018 Medicaid MEDICAID MEDICAI D [id number] 2018-Present [address] [place] [address] [id number] [id number] .[id number] 2018 Medicaid [id number]. 1.13.172.2.7.3 .[id number] 2018 Medicare MEDICARE MEDICAR E PART A AND B xxxxxxxxxxx 2018-Present [phone] [address] [address] [place] [address] xxxxxxxxxxx [id number] .[id number] 2018 Medicare [id number] 2018 Medicare MEDICARE MEDICAR E A AND B [id number] 2018-Present [address] [place] [address] [id number] 1.2.840.852905.1.13.172.2.7.3 .972940.315 2018 Medicare [id number]. 1.13.172.2.7.3 .326422.315 1971 Unknown [id number] 2.16.840.1.693183.3.579.2.173 1971 Unknown [id number] 2.16.840.1.657388.3.579.2.173 1971 Unknown [id number] 2.16.840.1.417377.3.579.2.173 1971 Unknown [id number] 2.16.840.1.853625.3.579.2.173 1971 Unknown [id number] 2.16.840.1.321427.3.579.2.173 1971 Unknown [id number] 2.16.840.1.064228.3.579.2.173 1971 Unknown [id number] 2.16.840.1.538218.3.579.2.173 1971 Unknown [id number] 2.16.840.1.720904.3.579.2.173 1971 Unknown [id number] 2.16.840.1.555892.3.579.2.647 1971 Unknown [id number] 2.16.840.1.027603.3.579.2.593 1971 Unknown [id number] 2.16.840.1.583099.3.579.2.593 1971 Unknown [id number] 2.16.840.1.950824.3.579.2.593 1971 Unknown [id number] 2.16.840.1.308302.3.579.2.593 1971 Unknown [id number] 2.16.840.1.022550.3.579.2.593 1971 Unknown [id number] 2.16.840.1.341177.3.579.2.593 1971 Unknown [id number] 2.16.840.1.467763.3.579.2.593 1971 Unknown [id number] 2.16.840.1.857946.3.579.2.593 1971 Unknown [id number] 2.16.840.1.324739.3.579.2.593 1971 Unknown [id number] 2.16.840.1.354893.3.579.2.593 1971 Unknown [id number] 2.16.840.1.772967.3.579.2.593 1971 Unknown [id number] 2.16.840.1.093580.3.579.2.593 1971 Unknown [id number] 2.16.840.1.169881.3.579.2.593 1971 Unknown [id number] 2.16.840.1.969155.3.579.2.593 1971 Unknown [id number] 2.16.840.1.990943.3.579.2.593 1971 Unknown [id number] 2.16840.1.896443.3.579.2.594 1971 Unknown [id number] 2.16840.1.965998.3.579.2.594 1971 Unknown [id number] 2.16.840.1.220001.3.579.2.594 1971 Unknown [id number] 2.16.840.1.830111.3.579.2.594 1971 Unknown [id number] 2.16.840.1.272834.3.579.2.594 1971 Unknown [id number] 2.16.840.1.106499.3.579.2.594 1971 Unknown [id number] 2.16.840.1.252698.3.579.2.594 1971 Unknown [id number] .16.840.1.681756.3.579.2.594 1971 Unknown [id number] 2.16.840.1.702900.3.579.2.594 1971 Unknown [id number] .16.840.1.919834.3.579.2.594 1971 Unknown [id number] 2.16.840.1.222493.3.579.2.594 1971 Unknown [id number] 2.16.840.1.576662.3.579.2.594 1971 Unknown [id number] 2.16.840.1.739798.3.579.2.125 9 1971 Unknown [id number] 2.16.840.1.068940.3.579.2.125 9 1971 Unknown [id number] 2.16.840.1.880478.3.579.2.125 9 1971 Unknown [id number] 2.16.840.1.602856.3.579.2.125 9 1971 Unknown [id number] 2.16.840.1.526144.3.579.2.125 9 1971 Unknown [id number] 2.16.840.1.071802.3.579.2.125 9 1971 Unknown [id number] 2.16.840.1.142924.3.579.2.125 9 1971 Unknown [id number] 2.16.840.1.539667.3.579.2.125 9 1971 Unknown [id number] 2.16.840.1.737242.3.579.2.125 9 1971 Unknown [id number] 2.16.840.1.541338.3.579.2.125 9 1971 Unknown [id number] 2.16.840.1.869123.3.579.2.125 9 1971 Unknown [id number] 2.16.840.1.365481.3.579.2.125 9 1971 Unknown [id number] 2.16.840.1.681494.3.579.2.125 9 1971 Unknown [id number] 2.16.840.1.645992.3.579.2.125 9 1959 Medicaid [id number] 1959 Medicare [id number] Social History Date Type Detail Facility Start: 07-19-2018 End: 10-19-2018 Tobacco smoking status NHIS Former smoker [facility] Start: 07-19-1988 End: 05-14-2018 History of tobacco use Current smoker [facility] Work Phone: Start: 07-19-1988 End: 05-14-2018 History of tobacco use Cigarette Smoker [facility] Work Phone: Start: 10-19-2018 End: 03-24-2024 Cigarettes smoked current (pack per day) - Reported [facility] End: 07-19-1994 History of tobacco use Chews Tobacco [facility] Work Phone: Start: 1970 Sex Assigned At Not on file [facility] Work Phone: Start: 11-03-2018 Alcohol intake Current non-drinker of alcohol (finding) [place] Start: 06-22-2018 Alcohol Comment Hx of alcoholism [place] Start: 11-03-2018 End: 03-24-2024 Alcohol intake No [facility] Start: 07-19-2018 Tobacco use and exposure Former user [facility] Start: 09-06-2020 End: 03-24-2024 Alcohol intake Ex-drinker (finding) [facility] Start: 07-19-2018 Alcohol Comment stopped 05/14/2018 [facility] Start: 05-05-2022 End: 01-16-2023 Exposure to SARS-CoV-2 (event) Not sure [facility] Start: 07-07-2018 Gender identity Identifies as male gender (finding) [facility] Start: 01-16-2022 Sexual orientation Heterosexual (finding) [facility] Start: 11-03-2023 Tobacco use and [...] Dates [id number] Start: 05-23-2020 [id number] Start: 04-12-2020 [id number] FDA Start: 05-17-2022 Comment on above: Description: Implant time-out completed by intra-procedural staff including this RN, epitaxial reactor technician, and performing physician. The following was [...] Melody Reyez - 03/24/2024 4:12 PM EDTTemil Gleason - 03/24/2024 4:12 PM Angie Rajput - 03/24/2024 4:12 PM EDTRmonster Aissatou - 03/24/2024 4:12 PM JOSÉ MIGUELTTemil Jerry - 03/24/2024 4:12 PM EDTAttachments Note Date & Type Note Facility 03-24-2024 History of Present illness Narrative [facility] OUTREACH ADVANCED: Call Information: Date and Time of Contact: 03/24/2024 4:14 PM Method of Contact: By Phone Contact Type: Prescriptions Contactor: [facility] Contactee: Patient Contact Outcome: Left message Shipping/Pickup: Medication Name: Prograf 0.2mg pack Contact Info: Specialty ([place]) [phone] [facility] [phone] [facility] [phone] David [phone] Bedside Delivery ([facility]) [phone] [facility] RX OUTREACH ADVANCED: Call Information: Date and Time of Contact: 03/28/2024 3:58 PM Method of Contact: By Phone Contact Type: Prescriptions Contactor: [facility] Contactee: Patient Contact Outcome: Left message and Call back later Shipping/Pickup: Medication Name: Mycophenolate, prograf Contact Info: Specialty ([place]) [phone] [facility] [phone] [facility] [phone] David [phone] Bedside Delivery ([facility]) [phone] [facility] RX OUTREACH ADVANCED: Call Information: Method of Contact: By Phone Contact Type: Prescriptions Contactor: Patient Contactee: [facility] Shipping/Pickup: Medicare B Refill?: No Medication Name: Mycopheolate 360mg and Prograf Delivery Method: Ship Delivery Location: Home Signature Required: No Receive/Pickup Date: 04/04/2024 Shipping Address: [address] [place] [address] [address] Contact Info: Specialty ([place]) [phone] [facility] [phone] [facility] [phone] David [phone] Bedside Delivery ([facility]) [phone] [facility] History of Present illness Narrative [facility] OUTREACH ADVANCED: Call Information: Date and Time of Contact: 03/24/2024 4:14 PM Method of Contact: By Phone Contact Type: Prescriptions Contactor: [facility] Contactee: Patient Contact Outcome: Left message Shipping/Pickup: Medication Name: Prograf 0.2mg pack Contact Info: Specialty ([place]) [phone] [facility] [phone] [facility] [phone] David [phone] Bedside Delivery ([facility]) [phone] [facility] RX OUTREACH ADVANCED: Call Information: Date and Time of Contact: 03/28/2024 3:58 PM Method of Contact: By Phone Contact Type: Prescriptions Contactor: [facility] Contactee: Patient Contact Outcome: Left message and Call back later Shipping/Pickup: Medication Name: Mycophenolate, prograf Contact Info: Specialty ([place]) [phone] [facility] [phone] [facility] [phone] David [phone] Bedside Delivery ([facility]) [phone] [facility] RX OUTREACH ADVANCED: Call Information: Method of Contact: By Phone Contact Type: Prescriptions Contactor: Patient Contactee: [facility] Shipping/Pickup: Medicare B Refill?: No Medication Name: Mycopheolate 360mg and Prograf Delivery Method: Ship Delivery Location: Home Signature Required: No Receive/Pickup Date: 04/04/2024 Shipping Address: [address] [place] [address] [address] Contact Info: Specialty ([place]) [phone] [facility] [phone] [facility] [phone] [facility] [phone] Bedside Delivery ([facility]) [phone] [facility] RX OUTREACH ADVANCED: Pre-Verification/Specialty Assessment/Disease [...] Within normal limits Contact Info: Specialty ([place]) [phone] Jakob [phone] [facility] [phone] David [phone] Bedside Delivery ([facility]) [phone] documented in this encounter [facility] 03-02-2024 History of Present illness Narrative [facility] [...] up del of broth Contact Info: Specialty ([place]) [phone] [facility] [phone] [facility] [phone] David [phone] Bedside Delivery ([facility]) [phone] [facility] OUTREACH ADVANCED: Call Information: Date and Time of Contact: 03/02/2024 3:49 PM Method of Contact: By Phone Contact Type: Prescriptions Contactor: [facility] Contactee: Patient Contact Outcome: Left message and Follow-up Shipping/Pickup: Medication Name: Myco 360mg and Prograf 0.2mg Contact Info: Specialty ([place]) [phone] [facility] [phone] [facility] [phone] David [phone] Bedside Delivery ([facility]) [phone] [facility] RX OUTREACH ADVANCED: Call Information: Date and Time of Contact: 03/02/2024 4:08 PM Method of Contact: By Phone Contact Type: Prescriptions Contactor: [facility] Contactee: Patient Shipping/Pickup: Medicare B Refill?: No Medication Name: Myco 360 / prograf 0.2 Delivery Method: Ship Delivery Location: Home Signature Required: No Receive/Pickup Date: 03/03/2024 Shipping Address: [address] [place] [address] [address] Contact Info: Specialty ([place]) [phone] [facility] [phone] [facility] [phone] David [phone] Bedside Delivery ([facility]) [phone] documented in this encounter [facility] 02-26-2024 History of Present illness Narrative Patient [...] the HF Clinic at the [facility] on 02/26/2024 for initial evaluation of heart [...] Left; Surgeon: Jyoti Bryant MD, PhD; Location: [facility] MAIN OR PLACEMENT NEPHROSTOMY CATHETER PERCUTANEOUS W/ IMAGE GUIDANCE 05/17/2022 Surgeon: Enzo Heart DO; Location: [facility] INTERVENTIONAL RADIOLOGY (VIR) LIVER TRANSPLANT, ORTHOTOPIC N/A 04/12/2020 Laterality: N/A; Surgeon: LU Palma; Location: [facility] SAME DAY SURGERY MAIN OR KIDNEY TRANSPLANT W/O CAHTO NEPHRECTOMY N/A 04/12/2020 Laterality: N/A; Surgeon: LU Palma; Location: [facility] SAME DAY SURGERY MAIN OR OTHER [...] qd Antithrombotic: no Statin: no ICD: NA CIGARETTE CARTON SEALER: NA CV Test results: ECHOCARDIOGRAM 01/18/2024 (Final) Interpretation Summary Left Ventricle: Chamber size is normal. Increased wall thickness. Concentric hypertrophy. Normal global systolic function. Regional wall motion is normal. Ejection fraction is normal (55 - 60%). Right Ventricle: Chamber size is normal. Systolic function is low normal. No hemodynamically significnat valve disease. Moderate pericardial effusion. There is no evidence of tamponade. [facility] (01/20/24) Hemodynamic Summary: Baseline Hemodynamics Systemic [...] will be BP control. Candie Almaguer M.D. aircraft refueler Advanced Heart Failure Program Division of Cardiovascular Medicine [facility] [email or web address] [phone] fax [phone] documented in this encounter [facility] 02-26-2024 Instructions Marsha Mckeon RN - 02/26/2024 9:30 AM EDT The following instructions were given today: Labs today Follow up with Dr. Almaguer as needed. Your after visit summary (AVS) is viewable in [facility] My Chart. Call RN if you have cardiac questions/concerns M-F 8 to 4:30 ; office # [phone], option 6, then option 2. Guidelines for home management: 1. Continue to monitor weight first thing each morning. 2. Report to the [facility]IN[facility] ([phone]) any significant weight change. Remember that weight [...] to have labs/tests run outside of the [facility] and you do not hear from us 1-2 days after they are performed, you must call us to ensure we received the results. Office fax # [phone]. No news does not necessarily mean that your tests are normal, it could mean we did not get the results. For questions/updates: please provide your name with spelling, date of and question or update All calls are prioritized and responses researched, if possible, prior to calls being returned. Call Scheduling for any appointment/procedure verification or changes [phone], option 7 or [facility] Heart Schedulers at [phone], option 1. documented in this encounter [facility] 01-23-2024 Nurse Note Jakob wrap & kerlix [...] understanding on picking up needed prescriptions at [facility] as listed on discharge summary. Patient denies any unanswered questions at this time. Patient has been discharged with all of their belongings, transported via wheelchair on oxygen to front entrance for brother to transport home on home oxygen supply. [facility] 01-23-2024 Miscellaneous Notes Jakob wrap & kerlix [...] understanding on picking up needed prescriptions at [facility] as listed on discharge summary. 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] POST OPERATIVE DIAGNOSIS Post-Op Diagnosis Codes: * High output congestive heart failure [I50.83] PROCEDURE PERFORMED Procedure(s) (LRB): LIGATION ANGIOACCESS AVF (Left) Resection of large aneurysmic vein PRIMARY CLOSURE Yes INTRAOPERATIVE FINDINGS No significant abnormalities SURGEON Surgeons and Role: * Jyoti Bryant MD, PhD - Primary ANESTHESIOLOGIST Anesthesiologist: Celena Tiwari MD; Kehinde Gutierrez MD ELECTROENCEPHALOGRAPH TECHNOLOGIST: David Jasso APRN-ELECTROENCEPHALOGRAPH TECHNOLOGIST Survey And Mapping Technician Assisting: Mini Khan MD SURGICAL STAFF Bit Welder: Zoila Lawrence RN Relief Bit Welder: Marimar Saravia RN Relief Scrub: Briseyda Self [...] patent, patient breathing easily. Report received from student life vice president and report received from anesthesiology. Pt arrived [...] Axillary block. SURGEON(S): Jyoti Bryant MD, PHD WEB SPECIALIST: Mynor Fall MD ESTIMATED BLOOD LOSS: Minimal. [...] Jyoti Bryant MD, PHD ATTENDING AR/MedQ JOB: [id number] DOC: [id number] Patient has been asleep this shift. He [...] overnight coverage, Jasper Gastelum MD, via pager #[phone] Pt- George Styles. Sarah 1082. TM1. Was wondering if he can have his Melatonin order increased to 6mg. Per pt, he usually takes 8mg at home. -SAMI Duffy #[phone] Tati Charles RN Internal Medicine Daily Progress Note Patient: George Styles, 1970, [id number] Physician: Arelis Mera MD, PGY3, Pager #[phone], TM1 service Assessment/Plan: George Styles is a [...] CAD on [facility] 2018. - continue home aspirin 81mg [...] Mera MD Mr. Styles was admitted to [address] [place] [address]. On admission to [facility], from outside facility a dual RN initial assessment of skin condition was performed by Izzy Gutierrez RN and Leroy Singleton RN. Skin Assessment: Skin within defined limits:Yes Jose Score: 20 Wound Vision Investigation Division Captain images obtained: No LDA Added: No Based [...] when available. documented in this encounter [facility] 01-23-2024 Nurse Note Home Oxygen [...] at 4L of oxygen is also required.) [facility] 01-23-2024 History of Present illness Narrative BRIEF [...] mg Oral Daily Kelvin Pacheco MD, JOSHBS history professor Transplant nephrology Surgery Post-Op Check Note [...] monitor Leonel Harris DO General Surgery Pager [phone] CM went to bedside to talk with patient. Patient states he has home oxygen through [employer]. He uses 2.5 LNC around the clock. Patient states his brother will bring a tank for discharge. Anticipate patient will discharge tomorrow AM. Brother updated. Girish Oro RN, BSN Clinical Radio News Writer Please note that I am a float telehealth case manager and may not cover the same service every day. Please call the main Case Management office at [phone] for up-to-date coverage. Verified patients identity using [...] all questions answered to his satisfaction Leonel Harris, DO Associated attestation - Jyoti Bryant MD, PhD - 01/22/2024 10:54 AM EST I. Jyoti Bryant MD, PhD, have independently seen and examined the patient, reviewed the labs, discussed the patient with the fellow/resident and agree with the note. Images from the original note were not included. Internal Medicine Daily Progress Note Patient: George Styles, 1970, [id number] Physician: Yury Ozuna MD, PGY1, Pager #[phone], ER8 service Assessment/Plan: George Styles is a 53 [...] by transplant surgery on 01/22 (NPO at tn, updated type & screen) S/p Liver-Kidney Transplant [...] CAD on [facility] 2018. - continue home aspirin 81mg [...] with the Nutrition plan outlined in the Big Data Developer s note. DVT prophylaxis with lovenox Diet [...] (01/21 633) Na/K+/Phos/Mg/Ca: 141/3.9/--/1.5/-- (01/21 633) Bun/Creat/Cl/CO2/Glucose: 15/1./ (01/21 06) Doppler US LUE AVF: Associated attestation - Tara, Kelvin Ortiz MD, MBBS - 01/21/2024 4:20 PM EST Patient seen and examined at bedside today during multidisciplinary rounds with medicine residents and pharmacy, charts reviewed, laboratory parameters reviewed. Agree with plan of care as mentioned in resident note. Kelvin Pacheco MD, LU history professor Transplant nephrology Patient seen and examined [...] Oral BID AC Kelvin Pacheco MD, LU history professor Transplant nephrology Images from the original note were not included. Internal Medicine Daily Progress Note Patient: George Styles, 1970, [id number] Physician: Yury Ozuna MD, PGY1, Pager #[phone], HE5 service Assessment/Plan: George Styles is a 53 [...] with the Nutrition plan outlined in the Big Data Developer s note. DVT prophylaxis with lovenox Diet [...] further questions. Name: Heidy Chatman Phone #: [phone] Date/Time: 01/19/2024 12:08 PM Time Spent: 15 minutes Associated attestation - Fidelina Alarcon RP - 01/19/2024 12:41 PM EST Department of Pharmacy Admission Medication Reconciliation Note Patient: George Styles Room/Bed: 1082/A I have reviewed the home medication list with the Special Education Curriculum Specialist. The home medication list status is: complete. All changes to the home medication list have been updated in [facility]. Updated AIRPORT DUTY MANAGER Med List: Prior to Admission Medications Prescriptions [...] with any further questions. Name: Fidelina Alarcon Lydia Phone #: [phone] Date/Time: 01/19/2024 12:41 PM Internal Medicine Daily Progress Note Patient: George Styles 1970, [id number] Physician: Yury Ozuna MD, PGY1, Pager #[phone], TM1 service Assessment/Plan: Acute Hypoxic Respiratory Insufficiency [...] with the Nutrition plan outlined in the Big Data Developer s note. DVT prophylaxis with lovenox Diet [...] mg Oral Daily Kelvin Pacheco MD, MBBS history professor Transplant nephrology Internal Medicine Daily Progress Note Patient: George Styles, 1970, [id number] Physician: Yury Ozuna MD, PGY1, Pager #[phone], TM1 service Assessment/Plan: Updates: - continued diuresis [...] CAD on [facility] 2018. - continue home aspirin 81mg [...] with the Nutrition plan outlined in the Big Data Developer s note. DVT prophylaxis with lovenox Diet [...] in resident note. Kelvin Pacheco MD, MBBS history professor Transplant nephrology Pt known to advertising operations coordinator from previous admissions. Provided emotional and spiritual support. Patient shared about: family support, medical course Cotton Buyer provided: - Supportive presence - Active listening - Validation of feelings/emotions Patient encouraged to request a advertising operations coordinator as needed. Chaplains are available in-house 24 hours a day and 7 days a week. For urgent matters in [facility] Resources, please page [phone]. If the request is not urgent, please enter a consult. Consults are responded to within 24 hours. Senior Staff Cotton Buyer Angie Singh Mdiv, [facility] [place] [phone] [email or web address] On-call TYLOR: call specialist David: 22/06 Pager ,[facility], and Brock Maciel Pager [phone] 01/18/24 1342 Clinical Encounter Type Visited With Patient Visit Type Introduction Pastoral Time Spent 15 min Referral Other (See Comment) (rounding) Spiritual Assessment Emotional Observation Coping well;Anxiety Hope Observation Specific hope focus Support Observation By Family Interventions Provided Active listening;Supportive presence Facilitated Verbalization of feelings;Identifying support system;Identifying Sources of spiritual well-being Explored Expectations;Treatment decisions Apple Sorter Education Apple Sorter Service Available Yes Educated Patient Outcomes Patient [...] interaction. Name: Fidelina Alarcon RPH Phone #: [phone] Date/Time: 01/18/2024 9:56 AM Discharge Planning Patient [...] Yes Name and Contact information: Gian Styles ([phone]) Would you like to add additional adult [...] Is the patient from a facility or snf?: No Patient lives with: Alone Living Environment: [...] oxygen?: Yes Oxygen Provider and Contact : [employer] Liter-Flow?: Order for oxygen use?: unknown at [...] patient on Anticoagulation? : No [facility] [id number] - [place] [address] - [address] [facility] [address] [facility] [address] Hand Roller Engraver Does the patient or telemarketing sales representative express financial concerns? : No Employed?: Disabled Coping/Stress Concerns about patient s coping and stress?: No Concerns about patient s caregiver s coping and stress?: No Values and Beliefs Cultural or caodaism practices that may impact discharge planning and/or [...] Plan 1. Identified self and role as Radio News Writer. 2. Confirmed and updated demographics and treatment team. 3. Radio News Writer will continue to follow with medical team for any other additional discharge needs. Kasandra DON RN CM *Please note I am float CM and work Thursday and Thursday every other week. Please call [phone] for assist in my absence. Internal Medicine Daily Progress Note Patient: George Styles, 1970, [id number] Physician: Yury Ozuna MD, PGY1, Pager #[phone], WC9 service Assessment/Plan: Updates: - continue diuresis with [...] CAD on [facility] 2018. - continue home aspirin 81mg [...] abdominal pain, flank pain, diarrhea. Objective: Vitals: 01/17/241041 BP: 121/58 Pulse: 60 Resp: 16 Temp: [...] ordered 2D echo. Kevin Prince MD, MADISONN School Manager of Clinical Medicine [facility] documented in this encounter [facility] 01-23-2024 Plan of care note Patient has [...] Symptoms (Acute Pain): verbalization of pain descriptors [facility] 01-22-2024 Hospital Discharge instructions Arelis Mera MD [...] your doctor for further instructions. Please call [phone], Option 1 or [phone] to schedule your appointment with the Heart Failure Clinic. 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] POST OPERATIVE DIAGNOSIS Post-Op Diagnosis Codes: * High output congestive heart failure [I50.83] PROCEDURE PERFORMED Procedure(s) (LRB): LIGATION ANGIOACCESS AVF (Left) Resection of large aneurysmic vein PRIMARY CLOSURE Yes INTRAOPERATIVE FINDINGS No significant abnormalities SURGEON Surgeons and Role: * Jyoti Bryant MD, PhD - Primary ANESTHESIOLOGIST Anesthesiologist: Celena Tiwari MD; Kehinde Gutierrez MD ELECTROENCEPHALOGRAPH TECHNOLOGIST: David Jasso APRN-ELECTROENCEPHALOGRAPH TECHNOLOGIST Survey And Mapping Technician Assisting: Mini Khan MD SURGICAL STAFF Bit Welder: Zoila Lawrence RN Relief Bit Welder: Marimar Saravia RN Relief Scrub: Briseyda Self Scrub Person: Cinda Mai RN Resident Assisting: Leonel Harris DO Fellow: Miki Mcgowan MD, MBBS COMPLICATIONS None ESTIMATED BLOOD LOSS Minimal SPECIMENS No specimen sent * No specimens in log * Jyoti Bryant MD, PhD January 22, 2024 1:34 PM [facility] Work Phone: 01-22-2024 Nurse Note Arrived to PACU assisted by anesthesiology. Connected to monitors. Turned side to side, OR linens removed, repositioned. Airway patent, patient breathing easily. Report received from student life vice president and report received from anesthesiology. Pt arrived awake. VSS. Sats slightly low. Pulm rehab used. Sats currently 3lpm @ 93%. Pt states he uses CPAP nocturnally. A&Ox4. Nerve block left arm, elevated. [facility] 01-22-2024 Surgery Postoperative evaluation and management [...] Axillary block. SURGEON(S): Jyoti Bryant MD, PHD WEB SPECIALIST: Mynor Fall MD ESTIMATED BLOOD LOSS: Minimal. [...] Jyoti Bryant MD, PHD ATTENDING SHANNON/Constanza JOB: [id number] DOC: [id number] [facility] 01-22-2024 Plan of care note Patient [...] 1939 Plan Of Care Reviewed With: patient [facility] 01-20-2024 Consult note Associated Order (s): IP CONSULT TO SURGERY - TRANSPLANT (RENAL) Images from the original note were not included. TRANSPLANT SURGERY CONSULT NOTE: Consult: 01/20/2024, 4:03 PM Visual Supervisor: Starla Morris MD Reason for Consult: Requesting Dr Carson Bryant for AVF revision/closure given new onset high output heart failure George Styles is a 53 y.o. 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 Mcgowan fellow online education manager Thank you, Starla Morris MD Associated attestation - Jyoti Bryant MD, PhD - 01/22/2024 10:54 AM EST Beata Bryant MD, PhD, have independently seen and examined the patient, reviewed the labs, discussed the patient with the fellow/resident and agree with the note. [facility] Work Phone: 01-20-2024 Consult note Associated Order (s): IP CONSULT TO SURGERY - TRANSPLANT (RENAL) Images from the original note were not included. TRANSPLANT SURGERY CONSULT NOTE: Consult: 01/20/2024, 4:03 PM Visual Supervisor: Starla Morris MD Reason for Consult: Requesting Dr Carson Bryant for AVF revision/closure given new onset high output heart failure George tSyles is a 53 y.o. male CURRENT HOSPITALIZATION LOS: Admit Date: 01/16/2024 [facility] Hospital LOS: 4 days George Styles [...] GUIDANCE 05/17/2022 Surgeon: Enzo Heart DO; Location: [facility] INTERVENTIONAL RADIOLOGY (VIR) LIVER TRANSPLANT, ORTHOTOPIC N/A 04/12/2020 Laterality: N/A; Surgeon: LU Palma; Location: [facility] SAME DAY SURGERY MAIN OR KIDNEY TRANSPLANT W/O CAHTO NEPHRECTOMY N/A 04/12/2020 Laterality: N/A; Surgeon: LU Palma; Location: [facility] SAME DAY SURGERY MAIN OR OTHER [...] seen and staffed with Dr. Mcgowan fellow online education manager Thank you, Starla Morris MD Associated attestation [...] DAY SURGERY MAIN OR KIDNEY TRANSPLANT W/O CAHTO NEPHRECTOMY N/A 04/12/2020 Laterality: N/A; Surgeon: LU [...] oz) Wt Readings from Last 3 Encounters: 02/18/24 97.3 kg (214 lb 9.6 oz) 09/21/23 [...] (order for outpatient) Please SecureChat or Call ([phone]) for any questions. Await attending attestation for final recommendations. Hank Noel MD Division of Gastroenterology, Hepatology, and Nutrition Clinical Fellow, PGY-5 Pager: [phone] For urgent/stat calls or consults 5pm to 7am, please page the on-call GI fellow on [employer]. [facility]--> Internal Medicine--> Gastroenterology, Hepatology, & Nutrition--> 1st Call Fel Alysia For urgent/stat calls or consults 7am to 5pm during the weekend, please page the on-call GI fellow on [employer]. [facility]--> Internal Medicine--> Gastroenterology, Hepatology, & Nutrition--> All Hep & East Wknd Cons Fel Day For follow up questions regarding this patient 7am to 5pm during the weekday, contact the Hepatology consults fellow or CARLOS A on [employer]. [facility]--> Internal Medicine--> Gastroenterology, Hepatology, & [...] Estrada MD, MSc documented in this encounter [facility] 01-19-2024 Nurse Note 01/19/24 0900 Vitals ICU/PCU [...] rest, 95-96% when talking/moving. Paulette Cordon RN [facility] 01-19-2024 Nurse Note Paged overnight coverage, Jasper Gastelum MD, via pager #[phone] Pt- George Styles. Sarah 1082. TM1. Was wondering if he can have his Melatonin order increased to 6mg. Per pt, he usually takes 8mg at home. -SAMI Duffy #[phone] Tati Charles RN [facility] 01-18-2024 Consult note Associated Order (s): IP [...] 04/12/2020 Laterality: N/A; Surgeon: LU Palma; Location: [facility] SAME DAY SURGERY MAIN OR KIDNEY TRANSPLANT W/O CAHTO NEPHRECTOMY N/A 04/12/2020 Laterality: N/A; Surgeon: LU [...] (order for outpatient) Please SecureChat or Call ([phone]) for any questions. Await attending attestation for final recommendations. Hank Noel MD Division of Gastroenterology, Hepatology, and Nutrition Clinical Fellow, PGY-5 Pager: [phone] For urgent/stat calls or consults 5pm to 7am, please page the on-call GI fellow on [employer]. [facility]--> Internal Medicine--> Gastroenterology, Hepatology, & Nutrition--> 1st Call Janae Hatfield For urgent/stat calls or consults 7am to 5pm during the weekend, please page the on-call GI fellow on [employer]. [facility]--> Internal Medicine--> Gastroenterology, Hepatology, & Nutrition--> All Hep & East Wknd Cons Fel Day For follow up questions regarding this patient 7am to 5pm during the weekday, contact the Hepatology consults fellow or CARLOS A on [employer] [facility]--> Internal Medicine--> Gastroenterology, Hepatology, & [...] for outpatient) Michael Estrada MD, MSc [facility] Work Phone: 01-16-2024 Plan of care note Internal Medicine Daily Progress Note Patient: George Styles, 1970, [id number] Physician: Arelis Mera MD, PGY3, Pager #[phone], TM1 service Assessment/Plan: George Styles is a [...] CAD on [facility] 2018. - continue home aspirin 81mg [...] MD, on rounds. Signed, Arelis Mera MD [facility] 01-16-2024 Nurse Note Mr. Styles was admitted to [address] [place] [address]. On admission to 0, from outside facility a dual RN initial assessment of skin condition was performed by Izzy Gutierrez RN and Leroy Singleton RN. Skin Assessment: Skin within defined limits:Yes Jose Score: 20 Wound Vision Investigation Division Captain images obtained: No LDA Added: No Based [...] room closest to nurses station when available. [facility] 01-16-2024 History and physical note Images from the original note were not included. Internal Medicine Admission History & Physical Patient: George Styles, 1970, [id number] Physician: Timothy Joseph MD, PGY1, Pager #[phone], TM 1 service Date of face to [...] GUIDANCE 05/17/2022 Surgeon: Enzo Heart DO; Location: [facility] INTERVENTIONAL RADIOLOGY (VIR) LIVER TRANSPLANT, ORTHOTOPIC N/A 04/12/2020 Laterality: N/A; Surgeon: LU Palma; Location: [facility] SAME DAY SURGERY MAIN OR KIDNEY TRANSPLANT W/O CAHTO NEPHRECTOMY N/A 04/12/2020 Laterality: N/A; Surgeon: LU Palma; Location: [facility] SAME DAY SURGERY MAIN OR OTHER [...] itraconazole Fax results to: Dr. White - [phone] Transplant Neph - [phone] Gabapentin 400 MG capsule Sig: Take 1 [...] erythema: Skin: No jaundice or rash Neuro: graphic art technician 3-7, 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 Strength grossly [...] CAD on [facility] 2018. - continue home aspirin 81mg [...] Pierson, Luisa Steven, Renee Rivera, Daisha Max Java Analyst: José Miguel Garnica All Txt: 04/13/2020 (Kidney), [...] results found for: CYCLOSPORIN , CYCLOSPORIN2 , [id number] , CYCLORAND No results found for: SIROLIMUS [...] request in chart. Kevin Prince MD Pager [phone] [facility] 01-16-2024 History and physical note Images from the original note were not included. Internal Medicine Admission History & Physical Patient: George Styles, 1970, [id number] Physician: Timothy Joseph MD, PGY1, Pager #[phone], TM 1 service Date of face to [...] GUIDANCE 05/17/2022 Surgeon: Enzo Heart DO; Location: [facility] INTERVENTIONAL RADIOLOGY (VIR) LIVER TRANSPLANT, ORTHOTOPIC N/A 04/12/2020 Laterality: N/A; Surgeon: LU Palma; Location: [facility] SAME DAY SURGERY MAIN OR KIDNEY TRANSPLANT W/O CAHTO NEPHRECTOMY N/A 04/12/2020 Laterality: N/A; Surgeon: LU Palma; Location: [facility] SAME DAY SURGERY MAIN OR OTHER [...] itraconazole Fax results to: Dr. White - [phone] Transplant Neph - [phone] Gabapentin 400 MG capsule Sig: Take 1 [...] erythema: Skin: No jaundice or rash Neuro: graphic art technician 3-7, 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 Strength grossly [...] CAD on [facility] 2018. - continue home aspirin 81mg [...] Pierson, Luisa Steven, Renee Rivera, Daisha Max Java Analyst: José Miguel Garnica All Txt: 04/13/2020 (Kidney), [...] results found for: CYCLOSPORIN , CYCLOSPORIN2 , [id number] , CYCLORAND No results found for: SIROLIMUS [...] request in chart. Kevin Prince MD Pager [phone] documented in this encounter [facility] 01-12-2024 History of Present illness Narrative [facility] [...] Prograf 0.2 MG Contact Info: Specialty ([place]) [phone] [facility] [phone] [facility] [phone] David [phone] Bedside Delivery ([facility]) [phone] [facility] OP RX OUTREACH ADVANCED: Call Information: Date and Time of Contact: 01/25/2024 10:23 AM Method of Contact: By Phone Contact Type: Prescriptions Contactor: [facility] OP Contactee: Patient Contact Outcome: Left message (prograf myco) Contact Info: Specialty ([place]) [phone] [facility] [phone] [facility] [phone] [facility] [phone] Bedside Delivery ([facility]) [phone] documented in this encounter [facility] 01-12-2024 History of Present illness Narrative [facility] [...] Prograf 0.2 MG Contact Info: Specialty ([place]) [phone] [facility] [phone] [facility] [phone] David [phone] Bedside Delivery ([facility]) [phone] [facility] OP RX OUTREACH ADVANCED: Call Information: Date and Time of Contact: 01/25/2024 10:23 AM Method of Contact: By Phone Contact Type: Prescriptions Contactor: [facility] OP Contactee: Patient Contact Outcome: Left message (prograf myco) Contact Info: Specialty ([place]) [phone] [facility] [phone] [facility] [phone] David [phone] Bedside Delivery ([facility]) [phone] [facility] OP RX OUTREACH ADVANCED: Call Information: Date and Time of Contact: 01/27/2024 10:19 AM Method of Contact: By Phone Contact Type: Prescriptions Contactor: [facility] OP Contactee: Patient Contact Outcome: Left message (myco prograf) Contact Info: Specialty ([place]) [phone] [facility] [phone] [facility] [phone] David [phone] Bedside Delivery ([facility]) [phone] documented in this encounter [facility] 01-12-2024 History of Present illness Narrative [facility] [...] Prograf 0.2 MG Contact Info: Specialty ([place]) [phone] [facility] [phone] [facility] [phone] David [phone] Bedside Delivery ([facility]) [phone] [facility] OP RX OUTREACH ADVANCED: Call Information: Date and Time of Contact: 01/25/2024 10:23 AM Method of Contact: By Phone Contact Type: Prescriptions Contactor: [facility] OP Contactee: Patient Contact Outcome: Left message (prograf myco) Contact Info: Specialty ([place]) [phone] [facility] [phone] [facility] [phone] David [phone] Bedside Delivery ([facility]) [phone] [facility] OP RX OUTREACH ADVANCED: Call Information: Date and Time of Contact: 01/27/2024 10:19 AM Method of Contact: By Phone Contact Type: Prescriptions Contactor: [facility] OP Contactee: Patient Contact Outcome: Left message (myco prograf) Contact Info: Specialty ([place]) [phone] [facility] [phone] [facility] [phone] David [phone] Bedside Delivery ([facility]) [phone] [facility] OP RX OUTREACH ADVANCED: Call Information: Date and Time of Contact: 02/01/2024 3:22 PM Contact Type: Prescriptions Contactor: [facility] OP Contactee: Patient Contact Outcome: Left message Shipping/Pickup: Medication Name: Mycophenolate 360mg and Prograf 0.2mg Pack Contact Info: Specialty ([place]) [phone] [place] [phone] [facility] [phone] David [phone] Bedside Delivery ([facility]) [phone] documented in this encounter [facility] 01-06-2024 History of Present illness [...] The neurologist wanted to send him to [facility] neurology but it is out of [...] pt to see neurologist in [facility] Immunocompromised ([facility]) Hypertension ([facility]) No change in meds Check echo Relevant Orders Echocardiogram 2D complete Bilateral lower extremity edema Relevant Orders Echocardiogram 2D complete Shortness of breath Check ECHO Relevant Orders Echocardiogram 2D complete Other Visit Diagnoses 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) Atherosclerosis 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) documented in this encounter [facility] 10-06-2023 History of Present illness Narrative [...] ; Prograf 0.2 MG Contact Info: Specialty ([place]) [phone] [facility] [phone] [facility] [phone] David [phone] Bedside Delivery ([facility]) [phone] [facility] OP RX OUTREACH ADVANCED: Call Information: Date and Time of Contact: 10/23/2023 2:00 PM Method of Contact: By Phone Contact Type: Prescriptions Contactor: [facility] OP Contactee: Patient Contact Outcome: Left message and Call back later Shipping/Pickup: Medication Name: Mycophenolate 360mg and Prograf 0.2mg Contact Info: Specialty ([place]) [phone] [facility] [phone] [facility] [phone] [facility] [phone] Bedside Delivery ([facility]) [phone] documented in this encounter [facility] 09-11-2023 Miscellaneous Notes Pt discharged home with [...] the oxygen during the night. pt will orange picking supervisor his oxygen from [employer], 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 This RN made [...] Patient seen ambulating in the velazquez with HEAD MILLER. Patient was mildly short of breath on [...] Guideline (CPG) Outcome: Ongoing Flowsheets (Taken 09/07/2023 0423) Related Risk Factors (Infection, Risk/Actual): chronic illness/condition [...] & HR 114. Messaged Mainor Loomis, via [employer] secure chat, Temp 100.8. His tylenol order [...] short period of time. 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 Episode [...] Critical Care Medicine Message Mainor Loomis, via [employer] secure chat, Good evening, just an FYI, [...] short period of time. 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 This [...] [address] Loera here also (floor cleaner) Dr. Daiz aware of pt's increased oxygen needs (arrived [...] of care. Outcome: Ongoing Flowsheets (Taken 08/30/2023 1047) Infection Prevention/Resolution: making progress toward outcome Problem: Infection, Risk/Actual (Adult) Intervention: Manage Suspected/Actual Infection Flowsheets (Taken 08/30/2023 1047) Fever Reduction/Comfort Measures: fluid intake increased lightweight bedding lightweight clothing medication administered Infection Management: aseptic technique maintained Intervention: Prevent Infection/Maximize Resistance Flowsheets Taken 08/30/2023 0748 Airway/Ventilation Management: pulmonary hygiene promoted Taken 08/29/2023 1046 Sleep/Rest Enhancement: regular sleep/rest pattern promoted Sent a secure [employer] chat to Rosi LUZ concerning patient's temp [...] PGY-2 Mr. Styles was admitted to [address] [place] [address]. On admission to [facility], from home a [...] when available. documented in this encounter [facility] 09-11-2023 History of Present illness Narrative Provided follow-up emotional and spiritual support. Patient shared about rosemary of discharge and looking forward to seeing family Cotton Buyer provided: - Supportive presence - Active listening - Validation of feelings/emotions Patient encouraged to request a advertising operations coordinator as needed. Chaplains are available in-house 24 hours a day and 7 days a week. For urgent matters in [facility], please page [phone]. If the request is not urgent, please enter a consult. Consults are responded to within 24 hours. Senior Staff Cotton Buyer Angie Singh Mdiv, [facility] [place] [phone] [email or web address] 22/06 On-call [place]: [phone] 22/06 Pager ,APOORVA, and Brock Maciel Pager [phone] 09/11/23 1430 Clinical Encounter Type Visited With Patient Visit Type Follow-up Pastoral Time Spent 15 min Referral Other (See Comment) (rounding) Spiritual Assessment Spiritual Observation Spirituality helpful Emotional Observation Coping well Hope Observation Specific hope focus Support Observation By Family Interventions Provided Active listening;Supportive presence Facilitated Verbalization of feelings Explored Expectations Apple Sorter Education Apple Sorter Service Available Yes Educated Patient Plan of Care Continue Visiting PRN Images from the original note were not included. [facility] Note: Non-Verbal Med Rec [facility] received the following discharge prescription(s): Total cost is $0. I have reviewed the Discharge Rx Reconciliation Report. The discharge prescription(s) will be delivered to the patient on 09/11/2023. Dimitrios Gurrola RPh,PharmD Specialty ([place]) [phone] [facility] [phone] [facility] Bedside Delivery [phone] [facility] [phone] [facility] Bedside Delivery [phone] [facility] [phone] [facility] Bedside Delivery [phone] [place] [phone] [place] [phone] Internal Medicine Daily Progress Note Patient: George Styles, 1970, [id number] Physician: Evan Kelly MD, PGY-1, TM1 service Subjective/Interval History: Patient continues to require oxygen overnight for desaturations. With insurance limitations, only accepting agency to provide home oxygen backed out. After calling them to discuss, Lynn stated she would be willing to have patient drive to their facility to orange picking supervisor supplies, however they close at 5pm. 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 His [place] kidney disease was noted to be presumed [...] CAD on [facility] 2018. - continue home aspirin 81mg [...] 5.05 (H) 11/19/2018 Kevin Prince MD, SERA School Manager of Clinical Medicine [facility] Images from the original note were not included. Final Discharge Planning and Transportation Final Discharge Planning Discharge Disposition: Home Services at Discharge: Outpatient clinical services (ie: lab draws, transfusions, injectables) (Home Oxygen by [facility]) Selected Continued Care - Admitted Since 08/28/2023 Durable Medical Equipment Coordination complete. 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 Addendum 1525 [facility] notified this CM they are out of patient's insurance area and will not be able to service this patient at time of discharge. Provider notified. Addendum 1750 Dr Kelly called [facility] spoke to Lynn and she said they are willing to accept patient if the patient would drive to the [place] office and orange picking supervisor the supplies. Patient is willing to do [...] Lora Colón RN, MSN, CCM, CMCN Clinical Radio News Writer- [facility] Transplant #[phone] Department of Pharmacy Transplant Note Patient: George [...] dose adjustment Name: Matt Kramer RPh,PharmD Phone: [phone] Date/Time: 09/10/2023 11:33 AM This CM sent referral via [employer] for O2 concentrator to 4 agencies Start date today Timer set for 1330 [facility] [employer] Addendum 1332 One accepting company reserved in [employer] [facility] [address] [place] [address] Lora Colón RN, MSN, CCM, CMCN Clinical Radio News Writer- [facility] Transplant #[phone] NUTRITION FOLLOW-UP Nutrition Plan of Care: 1. Continue current diet order. 2. No oral supplements warranted at this time. 3. Monitor for significant weight changes. Monitor GI, skin integrity. 4. Monitor and encourage po intakes with goal of average po being 75-100%. 5. floor technician to follow. ___ Met with patient [...] time. Will continue to monitor. RHIANNON [place] Pager:[phone] Transplant Infectious Disease (Team 3) Progress Note [...] sign off. Please Epic message or page [phone] with questions. 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 His petersburg kidney disease was noted to be presumed [...] CAD on [facility] 2018. - continue home aspirin 81mg [...] to follow. Please Epic message or page [phone] with questions. 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 His petersburg kidney disease was noted to be presumed [...] CAD on [facility] 2018. - continue home aspirin 81mg daily, holding atorvastatin 20mg daily Gout: continue home allopurinol 200mg daily BPH: continue home flomax 0.4mg daily DVT PPX: SQH Code Status: Full Code Disposition: Pending clinical course. Anticipate eventual discharge home. Discussed with team and attending, Kevin Prince MD, on rounds. Signed, Laurel Serrano MD, PhD Internal Medicine Daily Progress Note Patient: George Styles, 1970, [id number] Physician: Evan Kelly MD, PGY-1, TM1 service [...] s/p combined Liver-kidney transplant on 04/13/20. His petersburg kidney disease was noted to be presumed [...] CAD on [facility] 2018. - continue home aspirin 81mg [...] 5.05 (H) 11/19/2018 Kevin Prince MD, MADISONN School Manager of Clinical Medicine [facility] Transplant Infectious Disease (Team [...] to follow. Please Epic message or page [phone] with questions. Ann Marie Haskins MD PGY-4, [...] he continues to improve. Please message via [employer] secure chat or page with any questions or concerns. Evan White DO School Manager Division of Infectious Disease Transplant Infectious [...] to follow. Please Epic message or page [phone] with questions. Evan White DO Transplant Infectious Diseases Images from the original note were not included. Pulmonary/Critical Care Medicine Daily Progress Note Reason for Consultation: bronch for infectious workup Requesting Physician: Dr. Prince CURRENT HOSPITALIZATION: Admit Date: 08/28/2023 [facility] Hospital LOS: 9 days Impression 1. [...] and interpreted reviewed the radiographic [facility]. Internal Medicine Daily Progress Note Patient: George Styles, 1970, [id number] Physician: Evan Kelly MD, PGY-1, TM1 service Subjective/Interval History: No acute events overnight. Patient saturating appropriately on room air. He states he has been able to clear phlegm which may be contributing to his decreased oxygen requirements. His renal function imporved s/p bolus. He denies shortness of breath. All questions answered by the team. Objective: Vitals: 09/06/23 0745 BP: 139/69 Pulse: 72 Resp: 20 Temp: 98 F (36.7 C) SpO2: 91% O2 Device: room air (09/06/23 0745) Flow (L/min): 1 (09/06/23 033) Gen: Alert, [...] s/p combined Liver-kidney transplant on 04/13/20. His petersburg kidney disease was noted to be presumed [...] CAD on [facility] 2018. - continue home aspirin 81mg [...] 5.05 (H) 11/19/2018 Kevin Prince MD, FASN School Manager of Clinical Medicine [facility] Images from the original note were not included. Pulmonary/Critical Care Medicine Daily Progress Note Reason for Consultation: bronch for infectious workup Requesting Physician: Dr. Prince CURRENT HOSPITALIZATION: Admit Date: 08/28/2023 [facility] Hospital LOS: 8 days Impression 1. [...] and interpreted reviewed the radiographic data in [employer]. Acute Occupational Therapy Evaluation Prior to Admission [...] Assessment: Transfer Assessment: Sit to Stand Transfer [place] Level: Sit->Stand: independent Skilled Intervention/Details: Sit->Stand: x1 from EOB, x1 from toilet Stand to Sit Transfer [place] Level: Stand->Sit: independent Skilled Intervention/Details: Stand->Sit: x1 to toilet, x1 to EOB Functional Mobility: Functional Mobility [place] Level: Functional Mobility/Gait: independent Ambulation Distance (Feet): 20 Skilled Intervention/Details - Functional Mobility/Gait: pt performed functional mobility to/from RR w/ no overt LOB Outcome Score(s): CURRENT AM-PAC Daily Activity Inpatient Short Form Putting on/Taking Off Lower Body Clothin - A Little Assistance Bathin - A Little Assistance Toiletin - A Little Assistance Putting on/Taking Off Upper Body Clothin - No Assistance Groomin - No Assistance Eatin - No Assistance CURRENT AM-PAC Activity Raw Score: 21 CURRENT AM-PAC Activity [...] Intact Mobility Assessment: Supine to Sit Mobility [place] Level: Supine->Sit: modified [place] Bed Features/Set-up: Supine->Sit: Head of bed elevated Sit to Supine Mobility [place] Level: Sit->Supine: not tested Balance: Sitting Balance [...] environment. Transfer Assessment: Sit to Stand Transfer [place] Level: Sit->Stand: independent Skilled Intervention/Details: Sit->Stand: From EOB x 2 without difficulty. Stand to Sit Transfer [place] Level: Stand->Sit: independent Assistive Device: Stand->Sit: armed chair Skilled Rationale: Verbal cues, Positioning Gait/Functional Mobility: Gait Assessment [place] Level: Gait: stand-by assist Assistive Device: Gait: rollator Ambulation Distance (Feet): 400 Gait Deviations Identified: decreased grace, decreased gait speed Gait Skilled Rationale: verbal, upright posture, increase step length, increase foot clearance Skilled Intervention/Details - Gait: Reasonable foot clearnce without loss of balance but endorsing dyspnea as 6-7/10. Stairs: Stairs Assessment [place] Level: Stair Negotiation: not tested Outcome Score(s): CURRENT [facility] Basic Mobility Inpatient Short Form Turning over in bed: 4 - No Assistance Sitting/standing from chair: 4 - No Assistance Moving from lying on back to sittin - No Assistance Moving to and from bed to chair: 3 - A Little Assistance Walk in hospital room: 3 - A Little Assistance Climbing 3-5 steps with a railin - A Little Assistance CURRENT [facility] Mobility Raw Score: 21 CURRENT [facility] Mobility Functional Limitation/Modifier: 28.97% Currently Impaired in [...] Daily Progress Note Patient: George Styles, 1970, [id number] Physician: Evan Kelly MD, PGY-1, TM1 service [...] s/p combined Liver-kidney transplant on 04/13/20. His peters[place] kidney disease was noted to be presumed [...] CAD on [facility] 2018. - continue home aspirin 81mg [...] 5.05 (H) 11/19/2018 Kevin Prince MD, MADISONN School Manager of Clinical Medicine [facility] Transplant Infectious Disease (Team [...] Epic message or page [phone] with questions. Eavn White DO Transplant Infectious Diseases Images from the original note were not included. Internal Medicine Daily Progress Note Patient: George Styles, 1970, [id number] Physician: Evan Kelly MD, PGY-1, TM1 service [...] s/p combined Liver-kidney transplant on 04/13/20. His peters[place] kidney disease was noted to be presumed [...] CAD on [facility] 2018. - continue home aspirin 81mg [...] Component Value Date TACROLIMUS 3.6 (L) 09/04/2023 TACANCA 4.1 08/17/2023 On significantly reduced immunosuppression given interaction with P 450 system Kevin Prince MD, SERA School Manager of Clinical Medicine [facility] ERT Note: ERT called [...] MD, PhD Internal Medicine and Pediatrics PGY-3 [facility] Brief plan of care update: [...] saline neb - NRB-> HHF-> NIMV Laurel Serrnao MD, PhD Internal Medicine and Pediatrics PGY-3 [facility] Transplant Infectious Disease (Team 3) [...] to follow. Please Epic message or page [phone] with questions. Evan White DO Transplant Infectious Diseases Internal Medicine Daily Progress Note Patient: George Styles, 1970, [id number] Physician: Evan Kelly MD, PGY-1, TM1 service [...] s/p combined Liver-kidney transplant on 04/13/20. His peters[place] kidney disease was noted to be presumed [...] CAD on [facility] 2018. - continue home aspirin 81mg [...] 5.05 (H) 11/19/2018 Kevin Prince MD, SERA School Manager of Clinical Medicine [facility] Internal Medicine Daily Progress Note Patient: George Styles, 1970, [id number] Physician: Evan Kelly MD, PGY-1, TM1 service [...] s/p combined Liver-kidney transplant on 04/13/20. His peters[place] kidney disease was noted to be presumed [...] CAD on [facility] 2018. - continue home aspirin 81mg [...] 5.05 (H) 11/19/2018 Kevin Prince MD, FASN School Manager of Clinical Medicine [facility] Progression of Care Note [...] follow up Lora Colón RN, MSN, CCM, [facility] Clinical Radio News Writer- [facility] Transplant #[phone] Made introductory visit with patient. Provided emotional and spiritual support. Patient shared about: - Source of Rosemary: Camping/Fishing/Family - Spirituality/Mandaen Affiliation: raised Voodoo - Family Support/history - Experience with illness/hospital course - Hopes for healing/future Cotton Buyer provided: - Supportive presence - Active listening - Validation of feelings/emotions - Pledged prayer Patient encouraged to request a advertising operations coordinator as needed. Chaplains are available in-house 24 hours a day and 7 days a week. For urgent matters in [facility], please page [phone]. If the request is not urgent, please enter a consult. Consults are responded to within 24 hours. Senior Staff Cotton Buyer Angie Singh Mdiv, [facility] [place] [phone] [email or web address] 22/06 On-call [place]: [phone] 22/06 Pager KIKE SNIDER, and Brock Maciel Pager [phone] 09/02/23 8355 Clinical Encounter Type Visited With Patient Visit Type Introduction Pastoral Time Spent 15 min Referral Other (See Comment) (rounding) Spiritual Assessment Spiritual Observation Spirituality helpful Emotional Observation Coping well Hope Observation Specific hope focus Support Observation By Family Interventions Provided Active listening;Supportive presence Facilitated Verbalization of feelings Explored Expectations Apple Sorter Education Apple Sorter Service Available Yes Educated Patient Outcomes Patient Outcomes Reduced distress Plan of Care Continue Visiting PRN NUTRITION RISK SCREENING NOTE Nutrition Plan of Care: 1. Continue current diet order. 2. No oral supplements warranted at this time. 3. Monitor for significant weight changes. Monitor GI and skin integrity. 4. Monitor and encourage po intakes with goal of average po being 100%. 5. floor technician to follow. George Styles is a 53 y.o. 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 His [place]eters[place] kidney disease was noted to be presumed hepatorenal syndrome. His post-transplant course was noteworthy for nephrostomy tube (05/17/2022-09/10/2022) due to concern for ureteral stone. He presents as a direct admission for fever, cough, for infectious workup. Pt unavailable and information obtained via chart review Fabrication And Layout Craftsman Screening Pt's appetite is good. Pt with [...] with meds Food Allergies reviewed:Shellfish Cultural or Mandaen Restrictions/Preferences: None GI: Last Bowel Movement: 09/01/23 [...] time. Will continue to monitor. RHIANNON [place]R Pager:[phone] Internal Medicine Daily Progress Note Patient: George Styles, 1970, [id number] Physician: Evan Kelly MD, PGY-1, TM1 service [...] s/p combined Liver-kidney transplant on 04/13/20. His peters[place] kidney disease was noted to be presumed [...] CAD on [facility] 2018. - continue home aspirin 81mg [...] as outlined above. Kevin Prince MD Pager [phone] Summary: Pharmacy Med Rec Department of Pharmacy [...] Provider: Zuly Bruno NP Pharmacy: [facility] Other Comments: Patient reported his Last Home Dose of mycophenolate & tacrolimus was on 08/28/23 at 0900. Patient reported he was taking Bactrim and benzonatate for fevers and a cough he was having. Please feel free to contact me with any further questions. Name: Heidy Chatman Phone #: [phone] Date/Time: 09/01/2023 2:01 PM Time Spent: 15 minutes Associated attestation - Matt Kramer RPh,PharmD - 09/01/2023 2:28 PM EDT Department of Pharmacy Admission Medication Reconciliation Note Patient: George Styles Room/Bed: 1062/A I have reviewed the home medication list with the Special Education Curriculum Specialist. All changes to the home medication list have been updated in [facility]. Updated AIRPORT DUTY MANAGER Med List: Prior to Admission Medications Prescriptions [...] questions. Name: Matt Kramer RPh,PharmD Phone #: [phone] Date/Time: 09/01/2023 2:28 PM Transplant Infectious Disease [...] crypto antigen, EBV PCR -follow pending histo, [id number] labs These recommendations were discussed with the primary team. Transplant ID (Team 3) will continue to follow. Please Epic message or page [phone] with questions. Evan White DO Transplant Infectious Diseases Internal Medicine Daily Progress Note Patient: George Styles, 1970, [id number] Physician: Evan Kelly MD, PGY-1, TM1 service [...] s/p combined Liver-kidney transplant on 04/13/20. His peters[place] kidney disease was noted to be presumed [...] CAD on [facility] 2018. - continue home aspirin 81mg [...] 5.05 (H) 11/19/2018 Kevin Prince MD, SERA School Manager of Clinical Medicine [facility] Discharge Planning Patient Assessment [...] Yes Name and Contact information: Gian Styles ([phone]) Reviewed and Updated in Demographics? : Yes Outpatient Providers Does patient have a primary care physician? : Yes When was the patient's last PCP visit?: > 30 days Does the patient follow any specialists?: No Reviewed and updated Care Team?: Yes Patient Care Team: Zuly Bruno CNP as PCP - General Environment/Caregivers Is the patient from a facility or snf?: No Patient lives with: Alone Living Environment: [...] patient on Anticoagulation? 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 : No Employed?: Disabled Coping/Stress Concerns about patient s coping and stress?: No Concerns about patient s caregiver s coping and stress?: No Values and Beliefs Cultural or caodaism practices that may impact discharge planning and/or [...] Plan 1. Identified self and role as Radio News Writer. 2. Confirmed and updated demographics and treatment team. 3. Radio News Writer will continue to follow with medical team/pt for any other additional discharge needs. Kasandra DON RN [facility] [phone] *Please note I am float and work Thursday and Thursday every other week. Please call [phone] for assist in my absence. Internal Medicine Daily Progress Note Patient: George Styles, 1970, [id number] Physician: Evan Kelly MD, PGY-1, TM1 service [...] s/p combined Liver-kidney transplant on 04/13/20. His peters[place] kidney disease was noted to be presumed [...] CAD on [facility] 2018. - continue home aspirin 81mg [...] 5.05 (H) 11/19/2018 Kevin Prince MD, SERA School Manager of Clinical Medicine [facility] Internal Medicine Daily Progress Note Patient: George Styles, 1970, [id number] Physician: Laurel Serrano MD, PhD, PGY-3, TM1 [...] s/p combined Liver-kidney transplant on 04/13/20. His [place]eters[place] kidney disease was noted to be presumed [...] CAD on [facility] 2019. - continue home aspirin 81mg daily, atorvastatin 20mg daily Gout: continue home allopurinol 200mg daily BPH: continue home flomax 0.4mg daily DVT PPX: SQH Code Status: Full Code Disposition: Pending clinical course. Anticipate eventual discharge home. Discussed with team and attending, Kevin Prince MD, on rounds. Signed, Laurel Serrano MD, PhD documented in this encounter [facility] 09-10-2023 Hospital Discharge instructions Laurel [...] a sleep doctor. You will need to orange picking supervisor the oxygen concentrator when you leave the [...] healthy foods. documented in this encounter [facility] 09-01-2023 Consult note Associated Order (s): IP CONSULT TO PULMONOLOGY Pulmonary Medicine Inpatient Consultation Reason for Consultation: bronch for infectious workup Requesting Physician: Dr. Prince Pulmonary Attending Physician: Dr. Diaz CURRENT HOSPITALIZATION: Admit Date: 08/28/2023 [facility] Hospital LOS: 4 days Impression/Recommendations: George [...] short period of time. 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 Other histories as documented in [...] had any ill contacts. He traveled to [place] to [facility] in May. REVIEW OF SYSTEMS A complete [...] GUIDANCE 05/17/2022 Surgeon: Enzo Heart DO; Location: [facility] INTERVENTIONAL RADIOLOGY (VIR) LIVER TRANSPLANT, ORTHOTOPIC N/A 04/12/2020 Laterality: N/A; Surgeon: LU Palma; Location: [facility] SAME DAY SURGERY MAIN OR KIDNEY TRANSPLANT W/O CAHTO NEPHRECTOMY N/A 04/12/2020 Laterality: N/A; Surgeon: LU Palma; Location: [facility] SAME DAY SURGERY MAIN OR OTHER [...] Alamo MD I can be reached via [employer] secure message (preferred) or Pager #[phone] documented in this encounter [facility] 08-28-2023 History and physical note Images from the original note were not included. Internal Medicine Admission History & Physical Patient: George Styles, 1970, [id number] Physician: Aric Turner MD, PGY1, Pager #[phone], TM service Date of face to face [...] So he went to see the transplant hot box checker. He was found elevated Cr and asked [...] Appetite is ok now. Urine is about 9127-7495 ml every day. Stool every day, no [...] TRANSPLANT, ORTHOTOPIC N/A 04/12/2020 Laterality: N/A; Surgeon: UL Palma; Location: [facility] SAME DAY SURGERY MAIN OR KIDNEY TRANSPLANT W/O CAHTO NEPHRECTOMY N/A 04/12/2020 Laterality: N/A; Surgeon: LU Palma; Location: [facility] SAME DAY SURGERY MAIN OR OTHER [...] s/p combined Liver-kidney transplant on 04/13/20. His [place] kidney disease was noted to be presumed [...] Urinary histoplasmosis - PJP, candid PCR - Visual Supervisor transplant ID Acute Kidney Injury with [...] CAD on [facility] 2018. - continue aspirin 81mg daily, [...] Pierson, Luisa Steven, Renee Rivera, Daisha Max Java Analyst: José Miguel Garnica All Txt: 04/13/2020 (Kidney), [...] results found for: CYCLOSPORIN , CYCLOSPORIN2 , [id number] , CYCLORAND No results found for: SIROLIMUS [...] Rest as above. Kevin Prince MD Pager [phone] documented in this encounter [facility] 08-28-2023 History of Present illness Narrative Images from the original note were not included. 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 Java Analyst: Anayeli Burt Date of Liver Transplant: 04/13/2020 (Kidney), 04/13/2020 (Liver) 3 years 4 months post Liver/Kidney Transplant Primary Disease: Hypertensive Nephrosclerosis Transplant Cloth Classer: Erma Roe/ Daisha Max Primary Care physician: [...] Was removed on 05/23 Removed 05/23/20 Hepatitis C+/UKMAR- donor? no Hepatitis C+/KUMAR+ donor? no IMMUNOSUPPRESSION [...] and faMOTIdine === None Specified Preferred Lab: [facility] Change in lab frequency / new order [...] every 12 hours. ADDITIONAL INFORMATION: None Specified, [id number] [place] [address] - [address] [address] [facility] [address], [address] [facility] [address] [id number] [place] [address] [address] [facility]3] AT CORNER OF [address] [place] [address] [facility] [address], [address] [place] [address] ROS and SCREEN: Chest Pain: negative Cough: [...] PHYSICIAN: I saw George Styles at the [facility] on 08/28/2023. Patient is a 53 y.o. 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 His [place] kidney disease was noted to be presumed [...] 04/12/2020 Laterality: N/A; Surgeon: LU Palma; Location: [facility] SAME DAY SURGERY MAIN OR KIDNEY TRANSPLANT W/O CAHTO NEPHRECTOMY N/A 04/12/2020 Laterality: N/A; Surgeon: LU Palma; Location: [facility] SAME DAY SURGERY MAIN OR OTHER [...] you have any questions. Steve Munoz MD administrative services specialist Division of Nephrology [facility] documented in this encounter [facility] 08-28-2023 Instructions Mainor Busby RN - 08/28/2023 2:15 PM EDT - Admission for fevers, cough, and night sweats documented in this encounter [facility] 08-19-2023 History of Present illness Narrative [facility] OUTREACH ADVANCED: Call Information: Date and Time of Contact: 08/19/2023 2:52 PM Method of Contact: By Phone Contact Type: Prescriptions Contactor: [facility] Contactee: Patient Shipping/Pickup: Medicare B Refill?: No Medication Name: Tacro 0.5mg Delivery Method: Air Delivery Location: Home Signature Required: No Mailing/Pickup Date: 08/25/2023 Shipping Address: [address] [place] [address] [address] Contact Info: Specialty ([place]) [phone] Jakob [phone] [facility] [phone] David [phone] Bedside Delivery ([facility]) [phone] documented in this encounter [facility] 06-12-2023 History of Present illness Narrative Images from the original note were not included. George Styles is a 53 y.o. 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 No longer follows with a local hot box checker. History of Present Illness: Since George was [...] and lab results. Rebeca Gutierrez MSN, RN, VETERINARY MICROBIOLOGIST-BC, CCTN Certified Nurse Practitioner [facility] [address] [facility] [address] documented in this encounter [facility] 06-12-2023 Instructions JEANNA Hess - 06/12/2023 3:00 PM EDT No change in immunosuppression. documented in this encounter [facility] 06-10-2023 History of Present illness Narrative [facility]RE[facility] ADVANCED: Call Information: Method of Contact: By Phone Contact Type: Prescriptions Contactor: [facility] Contactee: Patient Contact Outcome: Left message Shipping/Pickup: Medication Name: Mycophenolate sod 180 mg Contact Info: Specialty ([place]) [phone] [facility] [phone] [facility] [phone] David [phone] Bedside Delivery ([facility]) [phone] [facility] RX OUTREACH ADVANCED: Call Information: Date and Time of Contact: 06/12/2023 9:43 AM Method of Contact: By Phone Contact Type: Prescriptions Contactor: [facility] Contactee: Patient Contact Outcome: Left message and Follow-up Shipping/Pickup: Medicare B Refill?: No Medication Name: Myco 180 Contact Info: Specialty ([place]) [phone] [facility] [phone] [facility] [phone] David [phone] Bedside Delivery ([facility]) [phone] [facility] RX OUTREACH ADVANCED: Call Information: Date and Time of Contact: 06/12/2023 10:08 AM Method of Contact: By Phone Contact Type: Prescriptions Contactor: [facility] Contactee: Patient Shipping/Pickup: Medicare B Refill?: No Medication Name: Mycophenolate 180mg DR Delivery Method: Air Delivery Location: Home Signature Required: No Mailing/Pickup Date: 06/17/2023 Shipping Address: [address] [place] [address] [address] [place] [id number] Contact Info: Specialty ([place]) [phone] Jakob [phone] [facility] [phone] David [phone] Bedside Delivery ([facility]) [phone] documented in this encounter [facility] 04-13-2023 Note [facility] Subjective George Styles is a [...] Legacy Encounter on (more content not included)... [facility] 03-12-2023 History of Present illness Narrative [facility] OUTREACH ADVANCED: Call Information: Date and Time of Contact: 03/12/2023 10:34 AM Method of Contact: By Phone Contact Type: Prescriptions Contactor: [facility] Contactee: Patient Shipping/Pickup: Medicare B Refill?: No Medication Name: Mycophenoloate sod 360 mg prednisone 5mg Delivery Method: Air Delivery Location: Home Signature Required: No Mailing/Pickup Date: 03/16/2023 Shipping Address: [address] [place] [address] Contact Info: Specialty ([place]) [phone] [facility] [phone] [facility] [phone] David [phone] Bedside Delivery ([facility]) [phone] [facility] RX OUTREACH ADVANCED: Call Information: [...] Required: No Mailing/Pickup Date: 03/19/2023 Shipping Address: [address] [place] [address] [address] Contact Info: Specialty ([place]) [phone] [facility] [phone] [facility] [phone] David [phone] Bedside Delivery ([facility]) [phone] documented in this encounter [facility] 03-10-2023 History of Present illness Narrative [facility] OUTREACH ADVANCED: Call Information: Date and Time of Contact: 03/10/2023 12:00 PM Method of Contact: By Phone Contact Type: Prescriptions Contactor: [facility] Contactee: Patient Contact Outcome: Left message and Call back later Shipping/Pickup: Medication Name: Mycophenolate ; Tacrolimus Contact Info: Specialty ([place]) [phone] Jakob [phone] [facility] [phone] David [phone] Bedside Delivery ([facility]) [phone] documented in this encounter [facility] 03-10-2023 History of Present illness Narrative [facility] OUTREACH ADVANCED: Call Information: Date and Time of Contact: 03/10/2023 12:00 PM Method of Contact: By Phone Contact Type: Prescriptions Contactor: [facility] Contactee: Patient Contact Outcome: Left message and Call back later Shipping/Pickup: Medication Name: Mycophenolate ; Tacrolimus Contact Info: Specialty ([place]) [phone] [facility] [phone] [facility] [phone] David [phone] Bedside Delivery ([facility]) [phone] [facility] OUTREACH ADVANCED: Call Information: Date and Time of Contact: 03/12/2023 10:32 AM Method of Contact: By Phone Contact Type: Prescriptions Contactor: [facility] Contactee: Patient Contact Outcome: Left message Shipping/Pickup: Medication Name: Mycophenolate sodium (MYFORTIC) 180 MG Tab tacrolimus 0.5 mg Contact Info: Specialty ([place]) [phone] [facility] [phone] [facility] [phone] David [phone] Bedside Delivery ([facility]) [phone] documented in this encounter [facility] 01-16-2023 History of Present illness Narrative -Referring Provider for today's consult: Daisha Max DO -Primary Care Provider: Zuly Bruno History of Present Illness George Styles is a 52 y.o. 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 [place] liver, orthotopic liver transplant resection (1458 gram): [...] A/P with IV contrast (06/27/2022): 1. 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 Daisha Max DO School Manager Gastroenterology, Hepatology and Nutrition [facility] Pager: [phone] Images from the original note were not included. 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 Java Analyst: Anayeli Burt Date of Liver Transplant: 04/13/2020 (Kidney), 04/13/2020 (Liver) 2 years, 8 months post Liver/Kidney Transplant Primary Disease: Hypertensive Nephrosclerosis Transplant Cloth Classer: Steve Munoz Primary Care physician: Zuly Bruno [...] levels: No results found for: CYCLOSPORIN, CYCLOSPORIN2, [id number], CYCLORAND No components found for: CYCLOSPORINE, 2HR [...] hours. ADDITIONAL INFORMATION: None Specified [id number] [place] [address] - [address] [facility] [address] [facility] [address] [facility] [place] [facility] [address] [place] [address] [facility] [address] [id number] [place] [address] [address] [facility]3] AT CORNER OF [facility] [address] [facility] [address] [facility] [address], [address] [facility] [address] ROS and SCREEN: Chest Pain: negative Cough: [...] ADDRESS WITH PHYSICIAN: documented in this encounter [facility] 01-16-2023 Instructions José Miguel Garnica RN - 01/16/2023 9:40 AM EST - Labs Every 2 months - Discuss night time urination with your PCP - Schedule Colonoscopy through PCP - Follow up in 1 year documented in this encounter [facility] 09-10-2022 History of Present illness Narrative UROLOGY [...] and no hydronephrosis. Some reflux up the [place] right ureter but good drainage of both transplant and [place] ureter to the bladder. 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 Lymph/Heme: Negative for [...] x 4, Normal strength. No edema. Skin: [place], warm, and dry. There are no rashes [...] and no hydronephrosis. Some reflux up the [place] right ureter but good drainage of both transplant and p[place] ureter to the bladder. Nephrostomy tube was [...] Yepez MD 09/10/22 documented in this encounter [facility] 07-07-2022 History of Present illness [...] assisted off the table and escorted to operator receptionist where they made a follow [...] to have transplant ureter with anastomosis to [place] right ureter. Nephrostogram without filling defects and no hydronephrosis. Some reflux up the [place] right ureter but good drainage of both transplant and p[place] ureter to the bladder. Nephrostomy tube was removed without issue. Patient does have some sensation of incomplete bladder emptying and occasional sensation in his right flank. PVR today was 33cc. Will re-evaluate urinary symptoms at next appointment. --continue Flomax --RTC in one month flow flow/PVR/IPSS Patient to call with any additional questions or concerns. 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 Lymph/Heme: Negative for [...] x 4, Normal strength. No edema. Skin: [place], warm, and dry. There are no rashes [...] male with a DD[facility] to [facility] in 2019. Nephrostomy tube placed [...] bag if needed. documented in this encounter [facility] 06-27-2022 History and physical note Patient was evaluated in clinic as a nurse visit. Please refer to Rena Brewster's note. [facility] Work Phone: 06-27-2022 History and physical note Patient was evaluated in clinic as a nurse visit. Please refer to Rena Brewster's note. documented in this encounter [facility] 06-27-2022 History of Present illness Narrative TEACHING REGARDING TX NEPH COMPLETED-NEPH TUBE SITE DRY AND INTACT-CLEAR YELLOW URINE IN THE BAG-INSTRUCTED ABOUT FLUSHING, BAG CHANGING ETC. NUMEROUS QUESTIONS ASKED AND ANSWERED-VERBALIZED UNDERSTANDING documented in this encounter [facility] 06-18-2022 Note EXAMINATION: CT ABD/ PELVIS WO [...] mass or enlargement. KIDNEYS: Marked atrophy of petersburg kidneys. Transplant right pelvic kidney with percutaneous [...] authenticated by: MÓNICA JIMENEZ Date: 2022-06-18 13:53 [facility] 06-12-2022 Instructions Anayeli Christianson RN - 06/12/2022 3:21 PM EDT Do not take apart/disrupt nephrostomy tube system. Call Interventional Radiology and/or on-call transplant nurse [phone] for instruction if need to flush (clot or decreased flow). Take cipro 500mg, one tablet, twice per day for 14 days documented in this encounter [facility] 06-12-2022 History of Present illness Narrative Images from the original note were not included. 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 Java Analyst: Anayeli Burt Date of Liver Transplant: 04/13/2020 (Kidney), 04/13/2020 (Liver) 2 year, 1 months post Liver/Kidney Transplant Primary Disease: Hypertensive Nephrosclerosis Transplant Cloth Classer: Steve Munoz Primary Care physician: Zuly Bruno [...] kidney stone in renal graft at [facility]. Percutaneous Neph Tube placed Images from the original note were not included. Nursing Assessment In Clinic (see Clinic Prep Sheet for additional information) Patient is accompanied to clinic today by: self Did patient require a wheelchair or medical transport for appointment: no Did first front ventilator confirm current address and insurance information is [...] LAB AND PHARMACY: None Specified [facility] [place] [address] - [address] [facility] [address] [facility] [address] [facility] [address] [facility] [place] [address] [id number] [place] [address] [address] [facility]3] AT CORNER OF [facility] [address] [facility] [address] [facility] [address], [address] [place] [address] ROS and SCREEN: Chest Pain: negative Cough: negative SOB: negative Abd Pain: negative Nausea: positive Vomiting: negative Diarrhea: negative Constipation: negative Dysuria: positive Edema: negative Tremors: negative Headaches: negative Wound issues: negative Pt has neph tube w clear yellow urine. States he had a small clot that he dislodged QUESTIONS OR CONCERNS TO ADDRESS WITH PHYSICIAN: I saw George Styles at the [facility] on 06/12/2022. Patient is a 52 y.o. 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 His [place] kidney disease was noted to be presumed [...] GUIDANCE 05/17/2022 Surgeon: Enzo Heart DO; Location: [facility] INTERVENTIONAL RADIOLOGY (VIR) LIVER TRANSPLANT, ORTHOTOPIC N/A 04/12/2020 Laterality: N/A; Surgeon: LU Palma; Location: [facility] SAME DAY SURGERY MAIN OR KIDNEY TRANSPLANT W/O CAHTO NEPHRECTOMY N/A 04/12/2020 Laterality: N/A; Surgeon: LU Palma; Location: [facility] SAME DAY SURGERY MAIN OR OTHER [...] you have any questions. Steve Munoz MD administrative services specialist Division of Nephrology [facility] documented in this encounter [facility] 06-04-2022 Instructions TATI GROVE - 06/04/2022 11:04 AM EDT Thank you for joining us for your neph tube follow up. We recommend routine exchange every 8-10 weeks. Please reach out at [phone] when it is time to set your next routine exchange. Thank you IR clinic documented in this encounter [facility] 06-04-2022 History of Present illness Narrative Met [...] exchange. Verbalized understanding. documented in this encounter [facility] 05-20-2022 Note Formatting of this n ote [...] time of his discharge. Leon Cook RN [facility] 05-20-2022 Miscellaneous Notes Patient discharged. AVS printed [...] provide teaching before his discharge Leon RN #[id number] Leon Cook RN Afternoon assessment completed at [...] Interdisciplinary Rounds/Family Conf Outcome: Ongoing Discussed with [facility] re: possible urine culture performed at their [...] with questions. Evan Byrd MD Urology, PGY-2 #[id number] I certify that this patient requires inpatient [...] care explained choices provided On admission to [facility], a dual RN initial assessment of skin condition was performed by Kallie Lorenzana RN and Sheri Arguelles RN. Skin Assessment: WDL Jose Score: 20 LDA Added:Tess Lorenzana RN documented in this encounter [facility] 05-20-2022 Note Formatting of this n ote [...] discharge/transition of care. Outcome: Adequate for Discharge [facility] 05-20-2022 Note Formatting of this n ote might be different from the original. Anne Dillard MD R10 [address]m [address] George Please let's have a clear order on how the nephrostomy site dressing need to be changed when the patient goes home so we provide teaching before his discharge Leon GALLARDO #[id number] Leon Cook RN [facility] 05-20-2022 History of Present illness Narrative Images from the original note were not included. [facility] Note: [facility] received the following discharge prescription(s): Medication reconciliation was completed with comparison to discharge reconciliation report. The prescription(s) will be delivered to the patient's bedside on 05/20/22. Total cost is $0. Yanira Her RPh,PharmD Specialty ([place]) [phone] [facility] [phone] [facility] [phone] David [phone] [place] [phone] Bedside Delivery ([facility]) [phone] Attending I saw George Styles at the [facility] on 05/19/2022. I saw and [...] packet 17 g 17 g Oral Q12H Nisahnt Gamez MD 17 g at 05/18/22 195 [...] Daily Progress Note Patient: George Styles, 1970, [id number] Physician: Liam Julian MD, PGY-3, Pager #[phone], [email or web address] Subjective/Interval History: No acute events overnight. Passed [...] Saldana MD Division of Hospital Medicine Pager [phone] Attending I saw George Styles at the [facility] on 05/18/2022. 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 Daya (Nunu) Jeff Saldana MD Division of Hospital Medicine Pager [phone] Internal Medicine Daily Progress Note Patient: George Styles, 1970, [id number] Physician: Nishant Gamez MD, PGY2, Pager #[phone], [id number] Subjective/Interval History: Worsening creatinine this morning with [...] Saldana MD Division of Hospital Medicine Pager [phone] Attending I saw George Styles at the [facility] on 05/17/2022. I saw and [...] Nishant Gamez MD 8.6 mg at 05/16/22 101 sodium chloride 0.9% IV solution 250 mL [...] of chart and discussion with treatment team, Radio News Writer has not identified needs at this time. [...] follow. Introduced self and role of the advertising operations coordinator to patient. Provided emotional and spiritual support and the patient responded by sharing their experience and discussed the following: - Spirituality/Mandaen Affiliation: As a kid attended [employer] but not a strong identity now - Family support - pt's brothers live close by Cotton Buyer provided: - Supportive presence - Active listening - Validation of feelings/emotions Patient encouraged to request a advertising operations coordinator as needed. Chaplains are available in-house 24 hours a day and 7 days a week. For urgent matters in [facility] Resources, please page [phone]. If the request is not urgent, please enter a consult. Consults are responded to within 24 hours. Angie Singh Mdiv, [facility] Transplant [place] [phone] Cotton Buyer [facility] Cotton Buyer Kirk [phone] [email or web address] 22/06 [facility] Pager [phone] 22/06 Pager ,[facility], and Brock 1500 22/06 [facility] Pager [phone] 05/16/22 1129 Clinical Encounter Type Visited With Patient Visit Type Introduction Pastoral Time Spent 15 min Referral Other (See Comment) (Rounding) Spiritual Assessment Spiritual Observation Spirituality helpful;Identifies as (see comment) (Jewish) Emotional Observation Coping well Hope Observation Hopeful and accepting Support Observation By Family Interventions Provided Active listening;Supportive presence Facilitated Verbalization of feelings;Sharing of life story;Identifying support system Explored Expectations Apple Sorter Education Apple Sorter Service Available Yes Educated Patient Outcomes Patient Outcomes Articulated purpose/meaning Plan of Care Continue Visiting PRN Internal Medicine Daily Progress Note Patient: George Styles, 1970, [id number] Physician: Nishant Gamez MD, PGY2, Pager #[phone], [email or web address] Subjective/Interval History: Overall feeling okay this morning. 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 [...] Supervision Transfer Assessment: Sit to Stand Transfer [place] Level: Sit->Stand: independent Skilled Intervention/Details: Sit->Stand: x1 from EOB Stand to Sit Transfer [place] Level: Stand->Sit: supervision Assistive Device: Stand->Sit: armed chair Skilled Rationale: Controlled descent for sitting, Verbal cues Gait/Functional Mobility: Gait Assessment [place] Level: Gait: supervision Assistive Device: Gait: gait belt Gait Distance (feet): 200 Gait Deviations Identified: decreased grace, decreased step length, decreased stride length Gait Skilled Rationale: verbal, upright posture Skilled Intervention/Details - Gait: Pt with steady gait without LOB or complaints of SOB. Stairs: Stairs Assessment [place] Level: Stair Negotiation: stand-by assist Assistive Device: Stair Negotiation: gait belt, left rail (ascending) Number of stairs: 9 Stairs Skilled Rationale: reciprocal pattern Outcome Score(s): CURRENT [facility] Basic Mobility Inpatient Short Form Turning over in bed: 4 - No Assistance Sitting/standing from chair: 4 - No Assistance Moving from lying on back to sittin - No Assistance Moving to and from bed to chair: 4 - No Assistance Walk in hospital room: 3 - A Little Assistance Climbing 3-5 steps with a railin - A Little Assistance CURRENT [facility] Mobility Raw Score: 22 CURRENT [facility] Mobility Functional Limitation/Modifier: 20.91% Currently Impaired [...] reported no concerns with discharging home with potlatch support. 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 IADL History IADLs: independent Primary Language: Burundian Home Management Skills: independent Meal Prep Responsibility: [...] Assessment: Transfer Assessment: Sit to Stand Transfer [place] Level: Sit->Stand: independent Skilled Rationale: Cues for increased safety Skilled Intervention/Details: Sit->Stand: x1 EOB Stand to Sit Transfer [place] Level: Stand->Sit: supervision Assistive Device: Stand->Sit: gait belt, armed chair Skilled Rationale: Verbal cues, Controlled descent for sitting, Cues for increased safety Skilled Intervention/Details: Stand->Sit: cues for hand placement and controlled descent Functional Mobility: Functional Mobility [place] Level: Functional Mobility/Gait: stand-by assist Assistive Device: Functional Mobility/Gait: gait belt Functional Mobility Distance: Distance needed for limited community mobility Functional Mobility Deficits: Activity tolerance, Balance, Decreased step length, Generalized weakness Functional Mobility Skilled Rationale: Verbal cues, Facilitate postural control Skilled Intervention/Details - Functional Mobility/Gait: cues for upright posture Outcome Score(s): CURRENT [facility] Daily Activity Inpatient Short Form Putting on/Taking Off Lower Body Clothin - A Little Assistance Bathin - A Little Assistance Toiletin - A Little Assistance Putting on/Taking Off Upper Body Clothin - No Assistance Groomin - No Assistance Eatin - No Assistance CURRENT [facility] Activity Raw Score: 21 CURRENT [facility] Activity Functional Limitation/Modifier: 32.79% Currently Impaired [...] DAY SURGERY MAIN OR KIDNEY TRANSPLANT W/O CAHTO NEPHRECTOMY N/A 04/12/2020 Laterality: N/A; Surgeon: LU Palma; [facility] OR OTHER [...] by: Mel Norman OT, OTR/L License #: [id number] pager # [phone] 05/20/2022 Upon discontinuation of Acute Care Occupational Therapy Services or patient discharge from the hospital this note represents the current Occupational Therapy Discharge Summary. documented in this encounter [facility] 05-20-2022 Hospital course Narrative Discharge Summary Name: [...] during his recent hospital stay at [facility]. As you may know, George Styles, [...] Saldana MD Division of Hospital Medicine p: [phone] f: [phone] CONSULTS DURING ADMISSION: IP CONSULT TO SURGERY - UROLOGY IP CONSULT TO NEPHROLOGY - TRANSPLANT (MEDICINE) IP CONSULT TO INTERVENTIONAL RADIOLOGY IP CONSULT TO PHYSICAL THERAPY IP CONSULT TO OCCUPATIONAL THERAPY IP CONSULT TO PHARMACY BEDSIDE DISCHARGE MED DELIVERY IMAGING / PROCEDURES / RESULTS: Should you require further information or copies of results or reports please contact Medical Information Management @ [phone] LABS AT TIME OF DISCHARGE: Lab Results [...] AT DISCHARGE: Zuly Kiana [address] / [place] [address] MEDICATIONS: Discharge Orders CT ABDOMEN/PELVIS WITHOUT CONTRAST [...] CAPS Generic drug: docusate Follow-up: Zuly Bruno, TANK BUILDER [address] [facility] [address] Schedule an appointment as soon as possible for a visit Follow-up appointment with your, primary care physician within 7-10 days, after discharge. [address] [facility] [id number] Follow up The department of urology will call you with a follow up appointment. LU Ovalle [address] 11[address] Floor [facility] [address] Follow up Please make a follow up appointment with Dr. Munoz's office. Upcoming Appointments (up to five)-Some appointments for Medical Center outpatient clinics or diagnostic testing locations are not displayed below Provider Department Dept Phone 06/04/2022 10:40 AM IR LEWIS MACIEL [facility] Interventional Radiology Clinic [phone] 06/27/2022 1:30 PM CARLI BUSTAMANTE [facility] Department of Radiology Arrive at: Arrive to First Floor Registration Desk [phone] 06/27/2022 2:40 PM Ryan Yepez [facility] Arrive at: Arrive to 2nd Floor, Registration [address] 10/31/2022 1:00 PM Steve Munoz [facility] [phone] 01/16/2023 9:40 AM TRANSPLANT HEPATOLOGY 3, [facility] [phone] Associated attestation - Daya Saldana MD - [...] MD (Peggy) Division of Hospital Medicine Pager [phone] documented in this encounter [facility] 05-20-2022 Hospital Discharge instructions Giulia [...] be changed by Interventional Radiology. Please call [phone] to schedule this appointment and with any questions or concerns you may have regarding the nephrostomy tube. If you have questions or concerns, please call Interventional Radiology at SOMEONE FROM INTERVENTIONAL RADIOLOGY WILL CALL YOU FOR A FOLLOW UP IN THE IR CLINIC Giulia Cavazos RN Nurse Coordinator Interventional Radiology Interventional Radiology Outpatient scheduling documented in this encounter [facility] 05-19-2022 Note Formatting of this [...] Ongoing Goal: Interdisciplinary Rounds/Family Conf Outcome: Ongoing [facility] 05-19-2022 Note Formatting of this n ote might be different from the original. Discussed with [facility] re: possible urine culture performed at their facility. However, based on urinalysis completed at that time, which was only notable for hematuria, culture was not performed and sample no longer feasible for culture. Liam Julian MD Internal Medicine/Pediatrics, PGY-3 [facility] 05-18-2022 Note Formatting of this n ote might be different from the original. 2003: IHIS message sent to Dr Justyn Wen, regarding patient passing a small kidney stone, about the size of pea. MD notified. Stone left in strainer in pt bathroom. 0500: IHIS message sent to Dr Justyn Wen, regarding pt BP 174/77. [facility] 05-18-2022 Note Formatting of this n ote [...] outcomes by discharge/transition of care. Outcome: Ongoing [facility] 05-18-2022 Note Formatting of this n ote [...] becomes hyponatremic, NS should instead be used. [facility] Work Phone: 05-18-2022 Note Formatting of this n ote might be different from the original. IHIS chat sent to Dr Tray Quintana, regarding pt BP 190/86. Pt complaining of pain at site of neph tube. PRN pain medication given per order parameters. Pt denies any other symptoms at this time. notified and aware. [facility] 05-17-2022 Note Formatting of this n ote might be different from the original. At 0900, I rounded with Dr. Gamez and Dr. Saldana. At that time I checked Mr. Styles's vital signs. His pulse oximeter was low and he was tachypneic. Verbal order at bedside to put nasal cannula on starting at 2liters oxygen and to provide incentive spirometer. [facility] 05-17-2022 Note Formatting of this n ote might be different from the original. Interventional Radiology procedure completed with IR Attending Dr. Heart / Dr. Le of percutaneous right nephrostomy tube placement transplant kidney 10.2 Fr Griffin acosta Pt tolerated procedure with moderate sedation local numbing agent . Transported to inpatient after phase I recovery. Post procedure orders in place. [facility] 05-16-2022 Note Formatting of this n ote might be different from the original. At 1530, I text paged Kaitlynn Gomez MD that patient has only had 25ml urine output in matias this afternoon. [facility] 05-16-2022 Note Formatting of this n ote [...] with questions. Evan Byrd MD Urology, PGY-2 #[id number] [facility] Work Phone: 05-16-2022 Note Formatting of this n ote might be different from the original. I certify that this patient requires inpatient services at this time. I anticipate the expected length of stay will include at least two midnights. Inpatient services are due to the following medical concerns Obstructive kidney stone. Plans for post hospitalization care will be discharge to home. [facility] 05-16-2022 Consult note Associated Order (s): IP CONSULT TO NEPHROLOGY - TRANSPLANT (MEDICINE) I saw George Styles at the [facility] on 05/16/2022. Reason for Consultation: [...] he was given flomax and sent home. Surrency better but noticed more pain and decreased [...] best assessment and recommendations. Maxi Pringle MD [facility] Work Phone: 05-16-2022 Consult note Associated Order (s): IP CONSULT TO NEPHROLOGY - TRANSPLANT (MEDICINE) I saw George Styles at the [facility] on 05/16/2022. Reason for Consultation: [...] he was given flomax and sent home. Surrency better but noticed more pain and decreased [...] states he went to his local ED [facility] and he was put on Flomax and he did improve. Pt states last night he was unable to void with severe right sided abd pain. Pt states nausea and no vomiting or fevers. Pt states he went back to [facility] at 0100 and they placed a [...] orthotopic (N/A, 04/12/2020); and kidney transplant w/o [place] nephrectomy (N/A, 04/12/2020). 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 The [place] kidneys are progressively atrophic bilaterally compared to [...] of 06/14/2020 are no longer present. The [place] distal right ureter is decompressed beyond this [...] with surgical history for renal graft and [place] right urinary drainage, as a discrete ureteroneocystostomy is not identified, and the graft may be draining via a ureteroureterostomy. Urology consultation recommended. 3. The [place] kidneys are bilaterally atrophic, with right renal sinus calcifications consistent with nonobstructing right [place] renal calculi up to 6 mm. Normal [...] PGY-3, Department of Urologic Surgery Pager #: [phone] Associated attestation - Ryan Yepez MD - [...] continue flomax documented in this encounter [facility] 05-16-2022 Note Formatting of this [...] supported Trust Relationship/Rapport: care explained choices provided [facility] 05-16-2022 Note Formatting of this n ote might be different from the original. On admission to [facility], a dual RN initial assessment of skin condition was performed by Kallie Lorenzana RN and Sheri Arguelles RN. Skin Assessment: WDL Jose Score: 20 LDA Added:N Kallie Lorenzana RN [facility] 05-15-2022 Emergency department Note Report given to Kallie RN at [facility] 05-15-2022 Emergency department Note Report given to [...] DAY SURGERY MAIN OR KIDNEY TRANSPLANT W/O CAHTO NEPHRECTOMY N/A 04/12/2020 Laterality: N/A; Surgeon: LU Palma; Location: [facility] SAME DAY SURGERY MAIN OR OTHER [...] Schneider MD Resident 05/15/222030 Pt arrives from [facility] with kidney stones. Pt states he had right lower abd pain and right flank pain with blood in his urine since Thursday. Pt states he went to his local ED [facility] and he was put on Flomax and he did improve. Pt states last night he was unable to void with severe right sided abd pain. Pt states nausea and no vomiting or fevers. Pt states he went back to [facility] at 0100 and they placed a matias and CT scan completed and multiple kidney stones noted. [facility] as he had liver and kidney transplant in 03/2020. documented in this encounter [facility] 05-15-2022 History and physical note Internal Medicine Admission History & Physical Patient: George Styles, 1970, [id number] Physician: Evan Bennett MD, PGY1, Pager #[phone], GM 4 service Date of face to [...] and decreased urine output; went back to ED [facility] Morning. Matias was placed and [...] 04/12/2020 Laterality: N/A; Surgeon: LU Palma; Location: [facility] SAME DAY SURGERY MAIN OR KIDNEY TRANSPLANT W/O CAHTO NEPHRECTOMY N/A 04/12/2020 Laterality: N/A; Surgeon: LU Palma; Location: [facility] SAME DAY SURGERY MAIN OR OTHER [...] erythema: Skin: No jaundice or rash Neuro: graphic art technician 3-7, 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 Strength grossly [...] dilation of the calyces may represent narrowing/partial [id number] ofthe ureter and mild hydronephrosis or sequela [...] MD Division of Hospital Medicine [phone] [facility] Work Phone: 05-15-2022 History and physical note Internal Medicine Admission History & Physical Patient: George Styles, 1970, [id number] Physician: Evan Bennett MD, PGY1, Pager #[phone], GM 4 service Date of face to [...] 04/12/2020 Laterality: N/A; Surgeon: LU Palma; Location: [facility] SAME DAY SURGERY MAIN OR KIDNEY TRANSPLANT W/O CAHTO NEPHRECTOMY N/A 04/12/2020 Laterality: N/A; Surgeon: LU Palma; Location: [facility] SAME DAY SURGERY MAIN OR OTHER [...] erythema: Skin: No jaundice or rash Neuro: graphic art technician 3-7, 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 Strength grossly [...] dilation of the calyces may represent narrowing/partial [id number] ofthe ureter and mild hydronephrosis or sequela [...] Medicine [id number] documented in this encounter [facility] 05-15-2022 Emergency department Note Bladder scan with Dr Villatoro at bedside, 14ml noted [facility] 05-15-2022 Consult note Associated Order [...] states he went to his local ED [facility] and he was put on Flomax and he did improve. Pt states last night he was unable to void with severe right sided abd pain. Pt states nausea and no vomiting or fevers. Pt states he went back to [facility] at 0100 and they placed a [...] orthotopic (N/A, 04/12/2020); and kidney transplant w/o petersburg nephrectomy (N/A, 04/12/2020). 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 The [place] kidneys are progressively atrophic bilaterally compared to [...] of 06/14/2020 are no longer present. The [place] distal right ureter is decompressed beyond this [...] with surgical history for renal graft and [place] right urinary drainage, as a discrete ureteroneocystostomy is not identified, and the graft may be draining via a ureteroureterostomy. Urology consultation recommended. 3. The [place] kidneys are bilaterally atrophic, with right renal sinus calcifications consistent with nonobstructing right [place] renal calculi up to 6 mm. Normal [...] PGY-3, Department of Urologic Surgery Pager #: [phone] Associated attestation - Ryan Yepez MD - [...] before surgical intervention --may continue flomax [facility] Work Phone: 05-15-2022 Emergency department Note Advised Dr Schneider concerning no urine output via matias catheter. [facility] 05-15-2022 Physician Emergency department Note ED Attending George Styles has a past medical history of Acute renal failure, CAD (coronary artery disease), Cirrhosis, Dialysis patient, End stage renal disease (06/01/2018), Essential hypertension, benign, Hepatic encephalopathy, History of blood transfusion, and Liver cirrhosis. Presents with a chief complaint of kidney stone and diagnosed Thursday and was sent home with [facility]. He went back to that [...] agree with the plan of care. Gian Vilaltoro MD 05/15/222003 [facility] Work Phone: 05-15-[address] Schneider made aware of only 30 ml urine via matias since arrival to room. [facility] 05-15-2022 Physician Emergency department Note dEPARTMENT of [...] DAY SURGERY MAIN OR KIDNEY TRANSPLANT W/O CAHTO NEPHRECTOMY N/A 04/12/2020 Laterality: N/A; Surgeon: LU [...] any incorrections. Matt Schneider MD Resident 05/15/222030 [facility] Work Phone: 05-15-2022 Emergency department Note Pt arrives from [facility] with kidney stones. Pt states he had right lower abd pain and right flank pain with blood in his urine since Thursday. Pt states he went to his local ED [facility] and he was put on Flomax and he did improve. Pt states last night he was unable to void with severe right sided abd pain. Pt states nausea and no vomiting or fevers. Pt states he went back to [facility] at 0100 and they placed a matias and CT scan completed and multiple kidney stones noted. Pt sent to [facility] as he had liver and kidney transplant in 03/2020. [facility] 03-14-2022 History of Present illness Narrative [facility] RX OUTREACH ADVANCED: Call Information: Date and Time of Contact: 03/14/2022 5:01 PM Method of Contact: By Phone Contact Type: Prescriptions Contactor: [facility] Contactee: Patient Shipping/Pickup: Medicare B Refill?: No Medication Name: Mycophenolate sodium 180 mg and tacrolimus 0.5 mg Delivery Method: Air Delivery Location: Home Signature Required: No Mailing/Pickup Date: 03/17/2022 Shipping Address: [address] [place] [address] [address] Contact Info: Specialty ([place]) [phone] Jakob [phone] [facility] [phone] [facility] [phone] Bedside Delivery ([facility]) [phone] documented in this encounter [facility] 06-14-2021 History of Present illness Narrative [facility] [...] 05/16/22 Goal Progress: Satisfactory Contact Info: Specialty ([place]) [phone] [facility] [phone] [facility] [phone] [facility] [phone] Bedside Delivery ([facility]) [phone] [facility] RX OUTREACH: Call Information: Date [...] Location: Home Signature Required: Yes Shipping Address: [address] [place] [address] [address] [facility] [address] Contact Info: Specialty ([place]) [phone] Jakob [phone] [facility] [phone] [facility] [phone] Bedside Delivery ([facility]) [phone] documented in this encounter [facility] Evaluation note Diagnosis FAYE (acute kidney injury)- Primary Acute kidney failure, unspecified Hydronephrosis due to obstruction of ureteral orifice Hydronephrosis due to obstruction of ureteral orifice FAYE (acute kidney injury) Acute kidney failure, unspecified [facility] Diagnosis Follow-up exam- Primary Unspecified follow-up examination documented [facility] Diagnosis Immunosuppressed status- Primary Unspecified disorder of immune mechanism Kidney replaced by transplant Liver replaced by transplant Abnormal blood chemistry Other abnormal blood chemistry High risk medication use Encounter for long-term (current) use of other medications Aftercare following organ transplant Liver transplant recipient [facility] Diagnosis Attention to nephrostomy- Primary [facility] Diagnosis Other hydronephrosis- Primary [facility] Diagnosis FAYE (acute kidney injury) Acute kidney failure, unspecified [facility] Diagnosis Other hydronephrosis- Primary -donor kidney transplant recipient Kidney replaced by transplant [facility] Diagnosis Other hydronephrosis [facility] Diagnosis 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) Encounter for screening for malignant neoplasm of prostate Special screening for malignant neoplasm of prostate [facility] Diagnosis Abnormal blood chemistry- Primary Other abnormal blood chemistry Liver transplant recipient Kidney replaced by transplant Immunosuppressed status Unspecified disorder of immune mechanism Aftercare following organ transplant [facility] Diagnosis Kidney replaced by transplant- Primary [facility] Diagnosis Immunosuppressed status- Primary Unspecified disorder of immune mechanism Kidney replaced by transplant Aftercare following organ transplant High risk medication use Encounter for long-term (current) use of other medications Other general symptoms and signs Abnormal blood chemistry Other abnormal blood chemistry Hypertension secondary to other renal disorders [facility] Diagnosis Histoplasmosis- Primary Histoplasmosis, unspecified without [...] Fever, unspecified [facility] Diagnosis Bilateral lower extremity edema- Primary 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) Atherosclerosis 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) Atherosclerosis of aorta Obesity (BMI 30-39.9) DARLENE (obstructive sleep apnea) Obstructive sleep apnea (adult) (pediatric) Tremor Abnormal involuntary movements Immunocompromised (CMS/HCC) Unspecified immunity deficiency Primary hypertension (CMS/HCC) Unspecified essential hypertension Shortness of breath documented in this encounter [facility]* Diagnosis Pleural effusion on [...] specified pre-operative examination [facility] Diagnosis Heart failure, diastolic, acute- Primary Acute diastolic heart failure [facility]ative[facility] Consultation (Routine) - New Request Specialty Diagnoses / Procedures Referred By Deni edwards Referred To Contact Interventional Radiology Diagnoses Hydronephrosis due to obstruction of ureteral orifice Daya Saldana MD [address] [place] [phone] Referral ID Status Reason Start Date Expiration Date V isits Requested Visits Authorized [id number] New Request 05/18/2022 06/12/2023 1 1 * Radiology (Emergency) - New Request Specialty Diagnoses / Procedures Referred By Contac t Referred To Contact Procedures US RENAL TRANSPLANT SCAN Daya Saldana MD [address] [place] [address] Referral ID Status Reason Start Date Expiration Date V isits Requested Visits Authorized [id number] New Request 05/16/2022 06/10/2023 1 1 * Consultation (Routine) - New Request Specialty Diagnoses / Procedures Referred By Contac t Referred To Contact Urology Diagnoses FAYE (acute kidney injury) Ryan Yepez MD [address] [place] [address] [address] [place] [address] Referral ID Status Reason Start Date Expiration Date V isits Requested Visits Authorized [id number] New Request 05/16/2022 06/10/2023 1 1 * MRI/CAT Scan (Routine) - New Request Specialty Diagnoses / Procedures Referred By Contac t Referred To Contact Diagnoses FAYE (acute kidney injury) Procedures CT ABDOMEN/PELVIS WITHOUT CONTRAST CHG CT SCAN,ABDOMENT AND PELVIS,W/O CONTRAST Ryan Yepez MD [address] [place] [address] [address] [place] [address] Referral ID Status Reason Start Date Expiration Date V isits Requested Visits Authorized [id number] New Request 05/16/2022 06/10/2023 1 1 * (Routine) - Pending Review Specialty Diagnoses / Procedures Referred By Contac t Referred To Contact Procedures PLATELET MONITORING PER PROTOCOL Daya Saldana MD [address] [place] [phone] Referral ID Status Reason Start Date Expiration Date V isits Requested Visits Authorized [id number] Pending Review 05/15/2022 06/09/2023 1 1 * (Routine) - Pending Review Specialty Diagnoses / Procedures Referred By Contac t Referred To Contact Procedures DVT/VTE RISK ASSESSMENT Daya Saldana MD [address] [place] [phone] Referral ID Status Reason Start Date Expiration Date V isits Requested Visits Authorized [id number] Pending Review 05/15/2022 06/09/2023 1 1 * (Routine) Specialty Diagnoses / Procedures Referred By Contac t Referred To Contact Evan Bennett MD [address] [place] [address] Referral ID Status Reason Start Date Expiration Date Visits Re quested Visits Authorized * (Routine) Specialty Diagnoses / Procedures Referred By Contac t Referred To Contact Evan Bennett MD [address] [place] [phone] Referral ID Status Reason Start Date Expiration Date Visits Re quested Visits Authorized [facility] for referral (narrative)* Consultation (Routine) - New Request Specialty Diagnoses / Procedures Referred By Contac t Referred To Contact Sleep Medicine Diagnoses Hypoxia Kevin Prince MD [address] [place] [address] Referral ID Status Reason Start Date Expiration Date V isits Requested Visits Authorized [id number] New Request 09/10/2023 10/04/2024 1 1 * MRI/CAT Scan (Routine) - New Request Specialty Diagnoses / Procedures Referred By Contac t Referred To Contact Diagnoses Histoplasmosis Procedures CT CHEST WITHOUT CONTRAST CHG DIAGNOSTIC COMPUTED TOMOGRAPHY THORAX W/O CNTRST Kevin Pirnce MD [address] [place] [address] Referral ID Status Reason Start Date Expiration Date V isits Requested Visits Authorized [id number] New Request 09/10/2023 10/04/2024 1 1 * Radiology (Routine) - New Request Specialty Diagnoses / Procedures Referred By Contac t Referred To Contact Procedures US RENAL TRANSPLANT SCAN Steve Munoz MBBS [address] [place] [address] Referral ID Status Reason Start Date Expiration Date V isits Requested Visits Authorized [id number] New Request 08/29/2023 09/22/2024 1 1 * (Routine) - New Request Specialty Diagnoses / Procedures Referred By Contac t Referred To Contact Procedures PLATELET MONITORING PER PROTOCOL Steve Munoz MBBS [address] [place] [address] Referral ID Status Reason Start Date Expiration Date V isits Requested Visits Authorized [id number] New Request 08/28/2023 09/21/2024 1 1 * (Routine) - New Request Specialty Diagnoses / Procedures Referred By Deni edwards Referred To Contact Procedures DVT/VTE RISK ASSESSMENT Steve Munoz MBBS [address] [place] [address] Referral ID Status Reason Start Date Expiration Date V isits Requested Visits Authorized [id number] New Request 08/28/2023 09/21/2024 1 1 [facility] Instructions * Patient Instructions - Christin Elizabeth APRN-ROB - 10/19/2018 9:21 AM EST You should take an extra dose of the lactulose as needed so that you are having 3-4 bowel movementsdaily. You should start the chemical dependency counseling as soon as possible. If you have questions, call the transplant social work program coordinator Fidelina Pierson. in this encounter* Patient Instructions - Sophie Cary, SAMI - 10/12/2018 11:09 AM EST You have been seen in the pre-transplant evaluation clinic by Dr. Restrepo and Sophie Cary. Sophie Cary is your pre-ocean export coordinator she can be reached at [phone] at any time for questions during the pre-transplant process. Your evaluation is complete pendin. Abdominal ultrasound. 2. 6 minute walk test. 3. Cardiology evaluation. Additionally, your load tester will recommend testing to screen for coronary artery disease. This will be scheduled for you after your cardiology visit. 4. Your coordinator will be requesting record from your last dental visit, colonoscopy and EGD. 5. Please work to complete social work recommendations. Your social work program coordinator will be contacting you to follow up on your progress. 6. You have also been referred for a kidney transplant. An appointment will be scheduled for you sari evaluated in the kidney transplant clinic after you have satisfied requirements dictated by [employer] company. Once your testing is complete, we [...] ___ Other Name MRN * Christin Elizabeth, VETERINARY MICROBIOLOGIST-TANK BUILDER - 10/19/2018 9:00 AM EST Formatting of this note may be different from the original. History of Present Illness: Chief Complaint Patient presents with Follow-up Cirrhosis George Styles is a 48 y.o. male who presents to the [facility] today regarding his diagnosis/chief complaint(s) of Cirrhosis secondary to ETOH, with ESRD follows with Dr. Orr. Currently undergoing evaluation for liver/kidney transplant. Has been seen in transplant clinic for eval. Still undergoing pre testing. Diagnosed in April 2018. Last drink was immediately prior to hospital admission in [place] for ACLF. Hospital course notable for ARF [...] (human immunodeficiency virus infection); Hyperlipidemia; Hyperthyroidism; Hypothyroidism; PA (myocardial infarction); Migraine; DARLENE (obstructive sleep apnea); [...] kidney transplant evaluation. Pt was AOx3. Transplant Coagulating Drying Supervisor role/function was explained and reviewed. The patient was informed that the results of this assessment will be shared with the referring provider and the transplant team. The patient verbalized understanding of this information. The [facility] psychosocial assessment consent form has been explained to patient and has been signed. Pt is completing this evaluation with brother (David) in the Outpatient setting. SWK educated pt on the benefits of completing/filing advanced directives and resources were offered. Pt identifies with [place]OR[place] rastafari. Pt confirms being a [place] Citizen. Pt.'s primary language is Burundian. Pt confirms the ability to read,write, and understand Burundian. Pt denies potential donors. Donor cards and [...] has valid license, does not regularly drive (TANK BUILDER recommends that he not to drive). He [...] related disease etoh cirrohosis April dx in [facility] for thirty days. Pt reports learning that [...] as well as referred him to pre ocean export coordinator. Pt and support demonstrated moderate understanding [...] Pt s primary support team will include brotherLuisa Hernandez and his spouse Beverley she doesn't work and is available to help. Patient's brother David is a self employed plastering contractor. Additional support includes his other brother Tyshawn and his Mary live fifteen minutes away. Of note Mary is a water valve repairer for a [employer] is available to assist division officer weapons department. He confirms being comfortable asking for [...] in 2010, he was employed by the [employer]. He has access to SSDI payment (SSDI starts in November) in regards to financial means pre/ post-transplant. Pt confirms (meeting bills currently, ) being able to meet daily needs. Patient's brother asking for additional information on community resources, food stamps and Heap. Refer him to pt.'s dialysis center and the [facility]. Hereports access to Medicaid. Pt. denies [...] court ordered treatment after a DUI charge Counts Include [facility] in [place], court ordered treatment in 2001 and in [...] He was provided with local AOD resources, [facility] AOD informational packet. Pt was [...] new visit Date of service: 10/12/2018 -Referring brush holder assembler for today's consult: -Primary Care Provider: Zuly [...] processes progressing rapidly Unknown * Elisa Tiwari, HEAD MILLER - 10/12/2018 10:00 AM EST Timed up and go 9.9 seconds Oven Heater Helper Left 52.8 pounds Right 44.9 pounds Waist circ 38.5 inches * Sophie Cary RN - 10/12/2018 10:00 AM EST Formatting of this note may be different from the original. Patient George Styles ([id number]), accompanied by his brother, was seen on [...] any further questions. Sophie GUERINN, RN Liver Java Analyst Etiology: ETOH HCC: No ETOH: Yes Last [...] Orr MD [address] [address] Status Reason Specialty Diagnoses / Procedures Referred By Contact Referred To Contact New Request Diagnoses Cirrhosis of liver with ascites, unspecified hepatic cirrhosis type Procedures US ABDOMEN RUQ/LIVER/GB Yovani Orr MD [address] [address] Specialty Diagnoses / Procedures Referred By Contac t Referred To Contact Diagnoses FAYE (acute kidney injury) Procedures CT ABDOMEN/PELVIS WITHOUT CONTRAST CHG CT SCAN,ABDOMENT AND PELVIS,W/O CONTRAST Central Scheduling [address] [place] [address] Referral ID Status Reason Start Date Expiration Date V isits Requested Visits Authorized [id number] Pending Review 05/16/2022 06/10/2023 1 1 Specialty Diagnoses / Procedures Referred By Contac t Referred To Contact Diagnoses Other hydronephrosis Procedures FLUORO IMAGING FOR UROLOGY Ryan Yepez MD [address] [facility] [address] [place] [address] Referral ID Status Reason Start Date Expiration Date V isits Requested Visits Authorized [id number] New Request 07/07/2022 08/01/2023 1 1 Specialty Diagnoses / Procedures Referred By Contac t Referred To Contact Procedures DIRECT ADMIT REQUEST Steve Munoz MBBS [address] [place] [address] Referral ID Status Reason Start Date Expiration Date V isits Requested Visits Authorized [id number] New Request 08/28/2023 09/21/2024 1 1 Specialty Diagnoses / Procedures Referred By Contac t Referred To Contact Radiology Diagnoses DARLENE (obstructive sleep apnea) Primary hypertension (CMS/HCC) Bilateral lower extremity edema Shortness of breath Procedures Echocardiogram 2D complete Zuly Bruno NP [address] [place] [address] Referral ID Status Reason Start Date Expiration Date Visits Requested Visits Authorized [id number] Incomplete Perform Procedure 01/06/2024 07/04/2024 1 1 Specialty Diagnoses / Procedures Referred By Contac t Referred To Contact Procedures US IMAGING REGIONAL ANESTHESIA Kehinde Gutierrez MD [address] [place] [address] Referral ID Status Reason Start Date Expiration Date V isits Requested Visits Authorized [id number] New Request 01/22/2024 02/15/2025 1 1 Specialty Diagnoses / Procedures Referred By Contac t Referred To Contact Cardiovascular Medicine Diagnoses Heart failure, diastolic, acute Kelvin Pacheco MD, MBBS [address] [place] [address] Referral ID Status Reason Start Date Expiration Date V isits Requested Visits Authorized [id number] New Request 01/20/2024 02/13/2025 1 1 Specialty Diagnoses / Procedures Referred By Contac t Referred To Contact Procedures US ABDOMEN LIVER DOPPLER US ABDOMEN LIVER TRANSPLANT DOPPLER Timothy Joseph MD [address] [facility] [address] [place] [address] Referral ID Status Reason Start Date Expiration Date V isits Requested Visits Authorized [id number] New Request 01/16/2024 02/09/2025 1 1 Specialty Diagnoses / Procedures Referred By Contac t Referred To Contact Procedures DVT/VTE RISK ASSESSMENT Kelvin Pacheco MD, MBBS [address] [place] [address] Referral ID Status Reason Start Date Expiration Date V isits Requested Visits Authorized [id number] New Request 01/16/2024 02/09/2025 1 1 Specialty Diagnoses / Procedures Referred By Contac t Referred To Contact Procedures PLATELET MONITORING PER PROTOCOL Kelvin Pacheco MD, MBBS [address] [place] [address] Referral ID Status Reason Start Date Expiration Date V isits Requested Visits Authorized [id number] New Request 01/16/2024 02/09/2025 1 1 Referral ID Status Reason Start Date Expiration Date V isits Requested Visits Authorized [id number] New Request 01/16/2024 02/09/2025 1 1 Specialty Diagnoses / Procedures Referred By Contac t Referred To Contact Procedures ECG Kelvin Pacheco MD, MBBS [address] [place] [address] Referral ID Status Reason Start Date Expiration Date V isits Requested Visits Authorized [id number] New Request 01/16/2024 02/09/2025 1 1 Advance Directives No Advanced Directives Records FoundDocuments on File Type Date 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 Advance Directives and Living Will Power of Clinic Md Associate Latest Code Status on File Code Status [...] ABDOMEN RUQ/LIVER/GB Yovani Orr MD [address] [place], [place] [address] [address] [address] Status Reason Specialty Diagnoses / Procedures Referre d By Contact Referred To Contact Denied Diagnoses Alcoholic cirrhosis, unspecified whether ascites present Pre-transplant evaluation for liver transplant Procedures MRI ABDOMEN WITH CONTRAST MT MRI, ABDOMEN W/CONTRAST Yovani Orr MD [address] [address] Reason Comments Liver Recipient Evaluation Status Reason Specialty Diagnoses / Procedures Referred By Contact Referred To Contact New Request Transplant / Transplant Surgery Procedures PRE NEW PATIENT Yovani Orr MD [address] [address] Alfredito eRstrepo MD [address] [place] [address] Reason Comments Reschedule Reason Comments Outside Medical Records Request Reason Comments Social Work Follow-up Reason Comments Kidney Stone Specialty Diagnoses / Procedures Referred By Deni edwards Referred To Contact Diagnoses Obstructing kidney stone, s/p kidney transplant 2019 Daya Saldana MD [address] [place] [address] [facility] [address] [place] [address] Referral ID Status Reason Start Date Expiration Date Visits Re quested Visits Authorized [id number] 1 1 Reason Comments Follow-up Reason Comments Kidney Recipient Follow-up Liver Recipient Follow-up Reason Comments Consult Reason Comments New Patient Hospital follow up Specialty Diagnoses / Procedures Referred By Deni edwards Referred To Contact Urology Diagnoses hosp fu with [address] prior Procedures NEW TO DOC/RET PATIENT Zuly Bruno, TANK BUILDER [address] [place] [address] Ryan Yepez MD [address] [facility] [address] [place] [address] Referral ID Status Reason Start Date Expiration Date Visits Re quested Visits Authorized [id number] Closed 06/27/2022 07/22/2023 1 1 Specialty Diagnoses / Procedures Referred By Contac t Referred To Contact Diagnoses FAYE (acute kidney injury) Procedures CT ABDOMEN/PELVIS WITHOUT CONTRAST CHG CT SCAN,ABDOMENT AND PELVIS,W/O CONTRAST Central Scheduling [address] [place] [address] Referral ID Status Reason Start Date Expiration Date V isits Requested Visits Authorized [id number] Pending Review 05/16/2022 06/10/2023 1 1 Reason Comments Follow-up Specialty Diagnoses / Procedures Referred By Contac t Referred To Contact Urology Diagnoses 1 week fu post NT clamp Procedures RETURN PATIENT Zuly Bruno, TANK BUILDER [address] [place] [address] Ryan Yepez MD [address] [facility] [address] [place] [address] Referral ID Status Reason Start Date Expiration Date Visits Requested Visits Authorized [id number] Authorized - [facility] 07/07/2022 08/01/2023 2 2 Specialty Diagnoses / Procedures Referred By Contac t Referred To Contact Diagnoses Other hydronephrosis Procedures FLUORO IMAGING FOR UROLOGY Ryan Yepez MD [address] [facility] [address] [place] [address] Referral ID Status Reason Start Date Expiration Date V isits Requested Visits Authorized [id number] New Request 07/07/2022 08/01/2023 1 1 Specialty Diagnoses / Procedures Referred By Contac t Referred To Contact Urology Diagnoses 1 week fu post NT clamp Procedures RETURN PATIENT Zuly Bruno CNP [address] [place] [address] Ryan Yepez MD [address] [facility] [address] [place] [address] Referral ID Status Reason Start Date Expiration Date Visits Re quested Visits Authorized [id number] Closed 07/07/2022 08/01/2023 2 2 Reason Comments Liver Recipient Follow-up Reason Comments Kidney Recipient Follow-up Reason Comments Kidney Recipient Follow-up Specialty Diagnoses / Procedures Referred By Contac t Referred To Contact Diagnoses Kidney replaced by transplant Steve Munoz MBBS [address] [place] [address] [facility] [address] [place] [address] Referral ID Status Reason Start Date Expiration Date Visits Re quested Visits Authorized [id number] 1 1 Specialty Diagnoses / Procedures Referred By Contac t Referred To Contact Diagnoses Pleural effusion on right PNEUMONIA- HX LIVER AND KIDNEY TRANSPLANT Kevin Prince MD [address] [place] [address] [facility] [address] [place] [address] Referral ID Status Reason Start Date Expiration Date Visits Re quested Visits Authorized [id number] 1 1 Reason Comments New Patient Specialty Diagnoses / Procedures Referred By Contac t Referred To Contact Cardiovascular Medicine Diagnoses Heart failure, diastolic, acute Kelvin Pacheco MD, MBBS [address] [place] [address] Referral ID Status Reason Start Date Expiration Date Visits Requested Visits Authorized [id number] Authorized - 01/20/2024 02/13/2025 5 5 (unrecognized sect ion and content) No Status Records FoundNo Status Records FoundNo Status Records FoundNo Status Records FoundNo Status Records FoundNo Status Records Found INFORMATION SOURCE (unrecogn ized section and content) DATE CREATED AUTHOR 01/07/2020 Karlie ariza DATE CREATED AUTHOR AUTHOR'S ORGANIZ ATION 01/27/2021 [facility] DATE CREATED AUTHOR AUTHOR'S ORGANIZ ATION 04/13/2023 [facility] DATE CREATED AUTHOR AUTHOR'S ORGANIZ ATION 05/11/2023 [facility] DATE CREATED AUTHOR AUTHOR'S ORGANIZ ATION 04/18/2024 [facility] DATE CREATED AUTHOR AUTHOR'S ORGANIZ ATION 04/19/2024 [facility] dicmt Specialists EPIC Care Teams (unrecognized sec tion and content) Spray Drier Relationship Specialty Start Date End Date Zuly Bruno CNP PCP - General 07/19/18 Comfort Rivera, [facility] [address] [facility] [address] [place] [phone] Pharmacist Pharmacist 05/16/20 Angel Carpio [facility],PharmD Pharmacist Pharmacist 05/16/20 Te Leigh [facility],PharmD Pharmacist Pharmacist 01/09/21 Spray Drier Relationship Specialty Start Date End Date Zuly Bruno CNP PCP - General 07/19/18 Comfort Rivera [facility] [address] [facility] [address] [place] [address] Pharmacist Pharmacist 05/16/20 Angel Carpio [facility],PharmD Pharmacist Pharmacist 05/16/20 Te Leigh [facility],PharmD Pharmacist Pharmacist 01/09/21 Spray Drier Relationship Specialty Start Date End Date Zuly Bruno CNP PCP - General 07/19/18 Spray Drier Relationship Specialty Start Date End Date Zuly Bruno CNP PCP - General 07/19/18 Spray Drier Relationship Specialty Start Date End Date Zuly Bruno CNP PCP - General 07/19/18 Spray Drier Relationship Specialty Start Date End Date Zuly Bruno CNP PCP - General 07/19/18 Spray Drier Relationship Specialty Start Date End Date Zuly Bruno CNP PCP - General 07/19/18 Spray Drier Relationship Specialty Start Date End Date Zuly Bruno CNP PCP - General 07/19/18 Spray Drier Relationship Specialty Start Date End Date Zuly Bruno CNP PCP - General 07/19/18 Spray Drier Relationship Specialty Start Date End Date Zuly Bruno CNP PCP - General 07/19/18 Spray Drier Relationship Specialty Start Date End Date Zuly Bruno CNP PCP - General 07/19/18 Spray Drier Relationship Specialty Start Date End Date Zuly Bruno CNP PCP - General 07/19/18 Spray Drier Relationship Specialty Start Date End Date Zuly Bruno CNP PCP - General 07/19/18 Spray Drier Relationship Specialty Start Date End Date Zuly Bruno CNP PCP - General 07/19/18 Spray Drier Relationship Specialty Start Date End Date KristopherlydialatishaZuly tipton CNP PCP - General 07/19/18 Spray Drier Relationship Specialty Start Date End Date Kristopherlydiajose e Zuly TANK BUILDER PCP - General 07/19/18 Spray Drier Relationship Specialty Start Date End Date BrianlatishaZuly tipton CNP PCP - General 07/19/18 Evan White DO [facility] [place] [address] Infectious Disease Infectious Disease 09/09/23 Spray Drier Relationship Specialty Start Date End Date KristopherlydialatishaZuly tipton ROB PCP - General 07/19/18 Evan White [place] [facility] [place] [address] Infectious Disease Infectious Disease 09/09/23 Spray Drier Relationship Specialty Start Date End Date Kristopherlydialatishaomer ZulyROB feliz PCP - General 07/19/18 Evan White DO [address] [place] [address] Infectious Disease Infectious Disease 09/09/23 Spray Drier Relationship Specialty Start Date End Date Momo Verdugo MD PCP - General Family Medicine 05/21/23 Spray Drier Relationship Specialty Start Date End Date Momo Verdugo MD PCP - General Family Medicine 05/21/23 Spray Drier Relationship Specialty Start Date End Date Momo Verdugo MD PCP - General Family Medicine 05/21/23 Spray Drier Relationship Specialty Start Date End Date Zuly Bruno CNP PCP - General 07/19/18 Evan White DO [address] [place] [address] Infectious Disease Infectious Disease 09/09/23 Spray Drier Relationship Specialty Start Date End Date Zuly Bruno CNP PCP - General 07/19/18 Evan White DO [address] [place] [address] Infectious Disease Infectious Disease 09/09/23 Spray Drier Relationship Specialty Start Date End Date Zuly Bruno CNP PCP - General 07/19/18 Evan White DO [address] [place] [address] Infectious Disease Infectious Disease 09/09/23 Spray Drier Relationship Specialty Start Date End Date Zuly Bruno CNP PCP - General 07/19/18 Evan White DO [address] [place] [id number] Infectious Disease Infectious Disease 09/09/23 Spray Drier Relationship Specialty Start Date End Date Zuly Bruno CNP PCP - General 07/19/18 Evan White DO [address] [place] [address] Infectious Disease Infectious Disease 09/09/23 Spray Drier Relationship Specialty Start Date End Date Zuly Bruno CNP PCP - General 07/19/18 Spray Drier Relationship Specialty Start Date End Date Zuly Bruno CNP PCP - General 07/19/18 Scheduled Active and Recently Administ ered Medications (unrecognized section and content) Medication Order 05/18/2022 05/19/2022 05/20/2022 allopurinol (ZYLOPRIM) tablet 100 mg 100 mg, Oral, DAILY, First dose (after last modification) on Thu05/17/22 at 0900, Until Discontinued 806 (Given - Provider: Mel Hampton RN) 08 (Given - Provider: Josey Braun, SAMI) 09 (Given - Provider: Leon Cook, RN) [...] 08 (Given - Provider: Josey Braun, SAMI) 09 (Given - Provider: Leon Cook, RN) atorvastatin [...] Nishant Gamez MD)0930 (Given - Provider: Leon Cook, SAMI)1722 (Given - Provider: Leon Cook RN) Magnesium [...] Isaac, SAMI) 0805 (Given - Provider: Josey Braun, RN)205 (Given - Provider: Carolyn Isaac, RN) 0742 [...] Patient with symptoms)195 (Given - Provider: Carolyn Isaac, SAMI) 1136 [...] Isaac, SAMI) 08 (Given - Provider: Josey Braun RN)2058 (Given - Provider: Carolyn Isaac, SAMI) 0931 [...] Thu05/20/22 at 211, Severe Pain, Moderate Pain 0338 (See Alternative - Provider: Carolyn Isaac RN)0806 (See Alternative - Provider: Mel Hampton RN) 0825 (Given - Provider: Josey Braun RN)2104 (Given - Provider: Carolyn Isaac RN) oxyCODONE HCl (ROXICODONE) tablet 10 mg(Linked Group 2) 10 mg, Oral, EVERY 4 HOURS NEEDED, Starting on Thu05/16/22 at 0614, Until Thu05/20/22 at 0, Severe Pain 0338 (Given - Provider: Carolyn [...] Plasencia, SAMI) 0958 (Given - Provider: Cheyanne Mcdonough RN) [...] allow absorption. 1142 (Given - Provider: Aixa Holden, SAMI) 0829 (Given - Provider: Terra Heart, SAMI) [...] Reason: Transfer to a Procedural area)141 ([facility] Unhold - Provider: Automatic Transfer)2008 [...] (Given - Provider: Terra Heart RN)105 ([facility] Hold - Provider: Automatic Transfer - Reason: Transfer to a Procedural area)141 ([facility] Unhold - Provider: Automatic Transfer)2008 (Given - Provider: Tati Ahmadi RN) 919 (Given - Provider: Terra Heart RN) Sulfamethoxazole-trime thoprim (BACTRIM DS) 800-160 MG per tablet 1 tablet 1 tablet, Oral, THREE TIMES WEEKLY (Once per day on Thursday), First dose on Thu01/18/24 at 0900, Until Discontinued 0846 (Given - Provider: Terra Heart RN)105 ([facility] Hold - Provider: Automatic Transfer - Reason: Transfer to a Procedural area)141 ([facility] Unhold - Provider: Automatic Transfer) tacrolimus (PROGRAF) susp 0.2 mg 0.2 mg, Oral, CUSTOM FREQUENCY (Once per day on Thursday), First dose on 01/16/24 at 0900, Until Discontinued, Caution check route of administration. For sublingual administration, place liquid under tongue and allow absorption. 08 (Given - Provider: Erica Gudino RN) 105 ([facility] Hold - Provider: Automatic Transfer - Reason: Transfer to a Procedural area)141 ([facility] Unhold - Provider: Automatic Transfer) 922 (Given - Provider: Terra Heart RN) Tamsulosin HCl (FLOMAX) capsule 0.4 mg 0.4 mg, Oral, DAILY, First dose on 01/16/24 at 0900, Until Discontinued, Slow release product. Do not chew or crush 0842 (Given - Provider: Erica Gudino RN) 0841 (Given - Provider: Terra Heart RN)105 ([facility] Hold - Provider: Automatic Transfer - Reason: Transfer to a Procedural area)141 ([facility] Unhold - Provider: Automatic Transfer) [...] (Given - Provider: Terra Heart RN)1053 ([facility] Hold - Provider: Automatic Transfer - Reason: Transfer to a Procedural area)1414 ([facility] Unhold - Provider: Automatic Transfer) [...] all sources in 24 hours. 1053 ([facility] Hold - Provider: Automatic Transfer - Reason: Transfer to a Procedural area)1414 ([facility] Unhold - Provider: Automatic Transfer)1806 [...] mg and Simethicone 20 mg) 1053 ([facility] Hold - Provider: Automatic Transfer - Reason: Transfer to a Procedural area)1414 ([facility] Unhold - Provider: Automatic Transfer) guaiFENesin (ROBITUSSIN) oral solution 400 mg 400 mg, Oral, EVERY 6 HOURS NEEDED, Starting on 01/16/24 at 0202, Until 01/23/24 at 1752, Cough, Congestion 1053 ([facility] Hold - Provider: Automatic Transfer - Reason: Transfer to a Procedural area)1414 ([facility] Unhold - Provider: Automatic Transfer) [...] Until 01/23/24 at 1752, Insomnia 1053 ([facility] Hold - Provider: Automatic Transfer - Reason: Transfer to a Procedural area)1414 ([facility] Unhold - Provider: Automatic Transfer)2355 (Given - Provider: Tati Ahmadi, SAMI) Ondansetron (ZOFRAN) tablet 4 mg(Linked Group 1) 4 mg, Oral, EVERY 6 HOURS NEEDED, Starting on 01/16/24 at 0202, Until 01/23/24 at 1752, Nausea / Vomiting, 1st line for Nausea/Vomiting 1053 ([facility] Hold - Provider: Automatic Transfer - Reason: Transfer to a Procedural area)1414 ([facility] Unhold - Provider: Automatic Transfer)1809 (See Alternative - Provider: Terra Heart, SAMI) 0430 (See Alternative - Provider: Tati Ahmadi, SAMI)1415 (Given - Provider: Terra Heart, SAMI) Ondansetron 4mg/2ml (ZOFRAN) injection 4 mg(Linked Group 1) 4 mg, Intravenous, EVERY 6 HOURS NEEDED, Starting on 01/16/24 at 0202, Until 01/23/24 at 1752, Nausea / Vomiting, 1st line for Nausea/Vomiting 1053 ([facility] Hold - Provider: Automatic Transfer - Reason: Transfer to a Procedural area)1414 ([facility] Unhold - Provider: Automatic Transfer)1809 [...] Heart RN) 0427 (Given - Provider: Tati Ahmadi, SAMI)0917 (Given - Provider: Terra Heart, SAMI)1312 (Given - Provider: Terra Heart RN) Polyethylene glycol (MIRALAX) packet 17 g 17 g, Oral, DAILY NEEDED, Starting on 01/16/24 at 0202, Until 01/23/24 at 1752, Constipation 1st Line 1053 ([facility] Hold - Provider: Automatic Transfer - Reason: Transfer to a Procedural area)1414 ([facility] Unhold - Provider: Automatic Transfer) Prochlorperazine (COMPAZINE) injection 10 mg 10 mg, Intravenous, EVERY 6 HOURS NEEDED, Starting on 01/17/24 at 1538, Until 01/23/24 at 1752, Nausea / Vomiting, Refractory Nausea Vomiting, For IV route: dilute dose with 10mL normal saline and give by slow IV push at a rate of 5mg/min. Maximum of 40mg/day. 1053 ([facility] Hold - Provider: Automatic Transfer - Reason: Transfer to a Procedural area)1414 ([facility] Unhold - Provider: Automatic Transfer)2349 [...] BE BASED ON THE PRIMARY CLINICAL RECORDS. [employer] [facility]. provides no warranty or guarantee of the accuracy or completeness of information in this document.
[2024-04-26 07:13] LABS: Basophils Percent Auto 0.6 % (0.2-2.0); Eosinophils Absolute Auto 0.1 10^3/uL (0.0-0.7); Eosinophils Percent Auto 2.4 % (0.9-7.0); Hematocrit 44.8 % (42.0-54.0); Hemoglobin 14.3 g/dL (14.0-18.0); Immature Granulocytes Abs Auto 0.01 10^3/uL (0.00-0.03); Immature Granulocytes Pct Auto 0.2 % (0.0-0.5); Lymphocytes Absolute Auto 1.3 10^3/uL (1.2-3.8); Lymphocytes Percent Auto 26.4 % (20.5-60.0); Mean Corpuscular HGB Conc 31.9 g/dL (29.9-35.2); Mean Corpuscular Hemoglobin 29.1 pg (25.9-34.0); Mean Corpuscular Volume 91.1 fL (80.0-94.0); Mean Platelet Volume 10.1 fL (9.5-13.5); Monocytes Absolute Auto 0.4 10^3/uL (0.3-0.8); Monocytes Percent Auto 8.9 % (1.7-12.0); Neutrophils Absolute Auto 3.1 10^3/uL (1.4-6.5); Neutrophils Percent Auto 61.5 % (43.0-75.0); Platelet Count 231 10^3/uL (150-450); Red Blood Count 4.92 10^6/uL (4.70-6.10); Red Cell Distribution Width 13.8 % (11.0-15.0)
[2024-04-26 08:41] LABS: Alanine Aminotransferase 24 U/L (16-63); Alkaline Phosphatase 126 U/L (46-116); Anion Gap 11.5; Aspartate Amino Transferase 23 U/L (15-37); BUN Creatinine Ratio 14.5; Bilirubin Direct 0.3 mg/dL (0.0-0.2); Bilirubin Total 1.2 mg/dL (0.2-1.0); Calcium 9.5 mg/dL (8.5-10.1); Carbon Dioxide 27.5 mmol/L (21.0-32.0); Chloride 105 mmol/L (98-107); Estimated GFR (African America >60 (>=60); Estimated GFR (Non-African Ame 57 (>=60); Gamma Glutamyl Transpeptidase 22 U/L (15-85); Glucose 100 mg/dL (74-106); Magnesium 2.3 mg/dL (1.8-2.4); Phosphorus 3.2 mg/dL (2.6-4.7); Sodium 140 mmol/L (136-145)
[2024-04-26 08:54] LABS: Creatinine Urine Random 67.79 mg/dL (20.00-300.00); Protein Creatinine Ratio Urine 0.16; Total Protein Urine Random 10.6 mg/dL (<=11.9)
[2024-04-28 15:08] LABS: Tacrolimus (FK506), Blood 2.9 ng/mL (2.0-20.0)
== END 2024-04-26 06:43 | disposition home or self-care (01) ==
LOC: LAB 06:43
PROVIDERS: PCP Nurse Practitioner
DX: R79.9 Abnormal finding of blood chemistry, unspecified (principal); Z94.0 Kidney transplant status; Z94.4 Liver transplant status; Z48.298 Encounter for aftercare following other organ transplant
CPT/HCPCS: 36415; 80048; 80197; 82042; 82247; 82248; 82570; 82977; 83735; 84075; 84100; 84156; 84450; 84460; 85025

== ENCOUNTER 2024-05-02 06:44 | Outpatient (OUT) | payer MEDICARE, MEDICAID, SELFPAY ==
--- OUTSIDE RECORDS SUMMARY | 2024-05-02 06:52 | XMS_ITS | CCD ---
Author Organization [facility] Care Team Providers Care Trauma Coordinator Name Role Phone Kiana Zuly Unavailable Unavailable Primary Care Provider Unavailabl e CAREY ROB Referring Unavailable KASMANI ROB Referring Unavailable KASMANI, ROB Referring Unavailable RIST, RENA Referring Unavailable TANA CAMPA Referring Unavailable RIST, RENA Referring Unavailable RIST, RENA Referring Unavailable RIST, RENA Referring Unavailable RIST, RENA Referring Unavailable PEPE CASE Attending Unavailable PEPE CASE Admitting Unavailable AICHHOLZ, ZULY Referring Unavailable AICHHOLZ, ZULY Primary Care Unavailable Aichholz [facility], [facility] Primary Care Provider [phone] Miguel [facility] Unavailable [phone] [facility],PharmD, Angel Unavailable Unavailab makayla [facility],PharmD, Te Unavailable Unavai lable Aichholz [facility] Primary Care Provider [phone] MIGUEL CARDONA Attending Unavailable MISC, DR BURCH Admitting Unavailable MISC, DR BURCH Consulting Unavailable AICHHOLZ, [employer] ZULY Primary Care Unavailable MISC, DR BURCH Attending Unavailable MISC, DR BURCH Admitting Unavailable MISC, DR BURCH Consulting Unavailable AICHHOLZ, [employer] ZULY Primary Care Unavailable MISC, DR BURCH Attending Unavailable ARCELIA PIZARRO Consulting Unavailable KE BURNHAM Attending Unavailable KE BURNHAM Admitting Unavailable BARBARA, DR MÓNICA Munoz Consulting Unavailable AICHHOLZ, [employer] ZULY Primary Care Unavailable KE BURNHAM Consulting Unavailable MISC, DR BURCH Consulting Unavailable MISC, DR BURCH Attending Unavailable AICHHOLZ, [employer] ZULY Primary Care Unavailable MISC, DOCTOR Admitting Unavailable MISC, DR DOCTOR Consulting Unavailable MISC, DR DOCTOR Attending Unavailable AICHOL, [facility] Primary Care Unavailable MISC, DOCTOR Admitting Unavailable MISC, DOCTOR Consulting Unavailable AICHHOL, [facility] Primary Care Unavailable MISC, DOCTOR Admitting Unavailable MISC, DOCTOR Attending Unavailable MELINDA, DR GEORGE Munoz Consulting Unavailable MELINDA, DR GEORGE Munoz Attending Unavailable AICHOL, [facility] Primary Care Unavailable MELINDA, DR GEORGE Munoz Admitting Unavailable NAUN ., KE Consulting Unavailable MIRANDA, LYNDSAY Consulting Unavailable MELINDA, DR GEORGE Munoz Consulting Unavailable NAUN ., KE Attending Unavailable NAUN ., KE Admitting Unavailable AICHHOLZ, [facility] Primary Care Unavailable NAUN ., KE Consulting Unavailable GIAN HERRING Consulting Unavailable AICHHOLZ, [facility] ZULY Consulting Unavailable AICHHOL, [employer] ZULY Attending Unavailable AICHHOL, [employer] ZULY Admitting Unavailable AICHOL, [facility] Primary Care Unavailable MISC, DR BURCH Consulting Unavailable MISC, DR BURCH Admitting Unavailable MISC, DOCTOR Attending Unavailable AICHHOL, [facility] Primary Care Unavailable MISC, DR Consulting Unavailable MISC, DOCTOR Attending Unavailable MISC, DOCTOR Admitting Unavailable AICHHOL, [facility] Primary Care Unavailable MISC, DR BURCH Admitting Unavailable MISC, DR BURCH Consulting Unavailable MISC, DOCTOR Attending Unavailable AICHHOL, [facility] Primary Care Unavailable MISC, DOCTOR Admitting Unavailable MISC, DOCTOR Consulting [facility] Primary Care Unavailable MISC, DOCTOR Attending Unavailable MISC, DOCTOR Admitting Unavailable MISC, DOCTOR Consulting Unavailable AICHHOL, [facility] Primary Care Unavailable MISC, DOCTOR Attending Unavailable AICHOL, [employer] ZULY Consulting Unavailable AICHOL, [employer] ZULY Attending Unavailable [facility], [employer] ZULY Admitting Unavailable [facility], [facility] Primary Care Unavailable DR MÓNICA JIMENEZ Consulting Unavailable Aichholz [facility] Primary Care Provider Milton White DOolas A Unavailable [facility] Primary Care Provider Bensonchalk DO, Evan A Unavailable Momo Verdugo MD Primary Care Provider [phone] Aichholz ROB Zuly Primary Care Provider [phone] AICHHOLZ, ZULY Attending Unavailable AICHHOLZ, ZULY Attending Unavailable PALMA PALACIOS Attending Unavailable AICHHOLZ, ZULY Referring Unavailable KELBLEY, FIDELINA Attending Unavailable AICHHOLZ, ZULY Referring Unavailable BRINK, JOHNNA Attending Unavailable AICHHOLZ, ZULY Referring Unavailable BRINK, JOHNNA Attending Unavailable AICHHOLZ, ZULY Referring Unavailable AICHHOLZ, ZULY Attending Unavailable BRINK, JOHNNA Attending Unavailable AICHHOLZ, ZULY Referring Unavailable BRINK, JOHNNA Attending Unavailable AICHHOLZ, ZULY Referring Unavailable KELBLEY, FIDELINA Attending Unavailable AICHHOLZ, ZULY Referring Unavailable BRINK, JOHNNA Attending Unavailable AICHHOLZ, ZULY Referring Unavailable BRINK, JOHNNA Attending Unavailable AICHHOLZ, ZULY Referring Unavailable BRINK, JOHNNA Attending Unavailable AICHHOLZ, ZULY Referring Unavailable AICHHOLZ, ZULY Attending Unavailable AICHHOLZ, ZULY Primary Care Unavailable HAKEEM ALAMO A Attending Unavailable SELF, SELF Referring Unavailable AICHHOLZ, ZULY Primary Care Unavailable AICHHOLZ, ZULY Primary Care Unavailable AICHHOLZ, ZULY Primary Care Unavailable AICHHOLZ, ZULY Primary Care Unavailable SELF, SELF Referring Unavailable REBECA GUTIERREZ Attending Unavailable AICHHOLZ, ZULY Primary Care Unavailable STEVE LATHAM Attending Unavailable YEISON, STEVE S Referring Unavailable [...] PACHECO Referring Unavailable CANDIE ALMAGUER Attending Unavailable ZULY BRUNO Primary Care Unavailable CANDIE ALMAGUER Attending Unavailable [...] (1 source) Shellfish Drug allergy (disorder) [facility] Repository Medications Current Medications Medication Drug [...] 1 capsule by mouth once daily b vqjeekf-S-serai acid (NEPHROCAPS) 1 MG capsule Take 1 [...] ankle pain. 0 06/12/2020 06/12/2023 Discontinued lactulose 46401 mg powder for oral solution (19 sources) [...] itraconazole Fax results to: Dr. White - [phone] Transplant Neph - [phone] Each 09/10/2023 01/19/2024 Discontinued (Medication Reconciliation (suppress cancel msg)) Start: 09-10-2023 CUSTOM MEDICAT ION Labs to be obtained: 1- Tacrolimus level, trough - collect twice weekly until 09/24/23, then weekly until 10/08/23, them once every two weeks there after. 2- Itraconazole level - obtain once between 09/14-09/18. 3- Chem 6 - Obtain weekly while on itraconazole Fax results to: Dr. White - [phone] Transplant Neph - [phone] Each 0 09/10/2023 Active Diatrizoate (1 [...] 01/16/2023 Discontinued take 2 tablets by mo [facility] in the morning magnesium oxide (Mag-Ox) 400 [...] (ROXICODONE) tablet 10 mg polyethylene glycol 3350 83116 mg powder for oral solution (20 sources) [...] Coronary arteriosclerosis; Translations: [Atherosclerotic heart disease of [place] coronary artery without angina pectoris] Onset: 3 [...] 05-10-2020 Episodic Other aftercare (2 sources) Other termination clerk (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; Translations: [OTH SIGNAL MANAGER 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 THERAPY] Onset: 07-06-2022 Episodic Other aftercare (1 source) [facility] (current) use of aspirin; Translations: [SKILLED NURSING CURRENT USE OF ASPIRIN] Onset: 06-20-2022 Episodic [...] transplant] Onset: 08-28-2023 Unclassified (1 source) Other termination clerk (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; Translations: [Other senior living (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] Onset: 08-28-2023 Unclassified (1 source) Hypertension secondary to other renal disorders; Translations: [Hypertension secondary to other renal disorders] Onset: 08-28-2023 Results Test Name Value Interpretation Reference Range Facility B-TYPE NATRIURETIC PEPTIDE ( BRAIN)on 02-26-2024 Natriuretic peptide B (Bld) [Mass/Vol] 72 pg/mL Normal 0-100 [facility] Comment on above: Performed By: #### B [employer] MAINFRAME DEVELOPER ####[facility] (DEFAULT)[address] [place] [address] Interpretation and review of laboratory results Normal [facility] Natriuretic peptide B (Bld) [Mass/Vol] 72 pg/mL 0 - 100 pg/mL [facility] CHEM 6 (LYTES, BUN CREA)on 0 3-29-2024 Anion gap [Moles/Vol] 13 mmol/L Normal 7-17 [facility] Comment on above: Performed By: #### C HM6 ####[facility] (DEFAULT)[address] [place] [address] Chloride [Moles/Vol] 107 mmol/L Normal 98-108 [facility] Comment on above: Performed By: #### C HM6 ####[facility] (DEFAULT)[address] [facility] [place] [address] CO2 [Moles/Vol] 25 mmol/L Normal 21-31 [facility] Comment on above: Performed By: #### C HM6 ####[facility] (DEFAULT)[address] [place] [address] Creatinine [Mass/Vol] 1.23 mg/dL Normal 0.70-1.30 [facility] Comment on above: Performed By: #### C HM6 ####[facility] (DEFAULT)[address] [place] [address] GFR/1.73 sq M.predicted among non-blacks MDRD (S/P/Bld) [Vol rate/Area] 70 mL/min/{1.73_m2} Normal >=60 [facility] Comment on above: Result Comment: Repo rted eGFR is based on the CKD-EPI 2020 equation using creatinine, age, and sex. Performed By: #### C HM6 ####[facility] (DEFAULT)[address] [place] [address] Potassium [Moles/Vol] 4.2 mmol/L Normal 3.5-5.0 [facility] Comment on above: Performed By: #### C HM6 ####[facility] (DEFAULT)[address] [place] [address] Sodium [Moles/Vol] 141 mmol/L Normal 135-145 [facility] Comment on above: Performed By: #### C HM6 ####[facility] (DEFAULT)[address] [facility] [address] Urea nitrogen [Mass/Vol] 17 mg/dL Normal 7-25 [facility] Comment on above: Performed By: #### C HM6 ####[facility] (DEFAULT)[address] [facility] [address] Urea nitrogen/Creatinine [Mass ratio] 14 mg/mg Normal [facility] Comment on above: Performed By: #### C HM6 ####[facility] (DEFAULT)[address] [place] [address] Anion gap [Moles/Vol] 13 mmol/L 7 - 17 mmol/L [facility] Chloride [Moles/Vol] 107 mmol/L 98 - 10 8 mmol/L [facility] CO2 [Moles/Vol] 25 mmol/L 21 - 31 mmol/L [facility] Creatinine [Mass/Vol] 1.23 mg/dL 0.70 - 1.30 mg/dL [facility] eGFR, CKD-EPI, Male 70 - PINF [facility] Comment on above: Reported eGFR is bas ed on the CKD-EPI 2020 equation using creatinine, age, and sex. Potassium [Moles/Vol] 4.2 mmol/L 3.5 - 5.0 mmol/L [facility] Sodium [Moles/Vol] 141 mmol/L 135 - 145 mmol/L [facility] Urea nitrogen [Mass/Vol] 17 mg/dL 7 - 25 mg/dL [facility] Urea nitrogen/Creatinine [Mass ratio] 14 mg/mg [facility] CBC,PLATELETSon 01-23-2024 Hematocrit (Bld) [Volume fraction] 37.0 % Low 39.6-48.8 [facility] Comment on above: Performed By: #### H EMOGC ####[facility] (DEFAULT)[address] [place] [address] Hemoglobin (Bld) [Mass/Vol] 12.0 g/dL Low 13.4-16.8 [facility] Comment on above: Performed By: #### H EMOGC ####[facility] (DEFAULT)[address] [place] [address] MCV (RBC) [Entitic vol] 88.1 fL Normal 79.0-94.5 [facility] Comment on above: Performed By: #### H EMOGC ####[facility] (DEFAULT)[address] [place] [address] Mean Cell Hgb 28.6 pg Normal 26.1-33.3 [facility] Comment on above: Performed By: #### H EMOGC ####[facility] (DEFAULT)[address] [place] [address] Mean Cell Hgb Conc 32.4 g/dL Normal 31.9-36.5 [facility] Comment on above: Performed By: #### H EMOGC ####[facility] (DEFAULT)[address] [place] [address] Platelet mean volume (Bld) [Entitic vol] 10.4 fL Normal 8.7-12.3 [facility] Comment on above: Performed By: #### H EMOGC ####[facility] (DEFAULT)[address] [place] [address] Platelets (Bld) [#/Vol] 170 10*3/uL Normal 146-337 [facility] Comment on above: Performed By: #### H EMOGC ####[facility] (DEFAULT)[address] [place] [address] RBC (Bld) [#/Vol] 4.20 10*6/uL Low 4.38-5.83 [facility] Comment on above: Performed By: #### H EMOGC ####[facility] (DEFAULT)[address] [place] [address] RBC Distribution 14.2 % Normal 10.9-14.3 [facility] Comment on above: Performed By: #### H [facility] ####[facility] (DEFAULT)[address] [place] [address] WBC (Bld) [#/Vol] 3.70 10*3/uL Low 3.73-10.10 [facility] Comment on above: Performed By: #### H [facility] ####[facility] (DEFAULT)[address] [place] [address] Erythrocyte distribution width (RBC) [Ratio] 14.2 % 10.9 - 14.3 % [facility] Hematocrit (Bld) [Volume fraction] 37.0 % Low 39.6 - 48.8 % [facility] Hemoglobin (Bld) [Mass/Vol] 12.0 g/dL Low 13.4 - 16.8 g/dL [facility] Interpretation and review of laboratory results Abnormal [facility] MCH (RBC) [Entitic mass] 28.6 pg 26.1 - 33.3 pg [facility] MCHC (RBC) [Mass/Vol] 32.4 g/dL 31.9 - 36.5 g/dL [facility] MCV (RBC) [Entitic vol] 88.1 fL 79.0 - 94.5 fL [facility] Platelet mean volume (Bld) [Entitic vol] 10.4 fL 8.7 - 12.3 fL [facility] Platelets (Bld) [#/Vol] 170 10*3/uL 146 - 337 K/uL [facility] RBC (Bld) [#/Vol] 4.20 10*6/uL Low [facility] WBC (Bld) [#/Vol] 3.70 10*3/uL Low 3.73 - 10. 10 K/uL [facility] CHEM 7 (LYTES,BUN,CREA,GLUC) on 01-23-2024 Anion gap [Moles/Vol] 14 mmol/L Normal 7-17 [facility] Comment on above: Performed By: #### M GO, CHM7, HFP ####[facility] (DEFAULT)[address] [place] [address] Chloride [Moles/Vol] 105 mmol/L Normal 98-108 [facility] Comment on above: Performed By: #### M NATHANIEL BLOOM, HFP ####[facility] (DEFAULT)[address] [place] [address] CO2 [Moles/Vol] 25 mmol/L Normal 21-31 [facility] Comment on above: Performed By: #### M NATHANIEL BLOOM, HFP ####[facility] (DEFAULT)[address] [facility] [place] [address] Creatinine [Mass/Vol] 1.32 mg/dL High 0.70-1.30 [facility] Comment on above: Performed By: #### NATHANIEL RAMÍREZ, HFP ####[facility] (DEFAULT)[address] [place] [address] GFR/1.73 sq M.predicted among non-blacks MDRD (S/P/Bld) [Vol rate/Area] 65 mL/min/{1.73_m2} Normal >=60 [facility] Comment on above: Result Comment: Repo rted eGFR is based on the CKD-EPI 2020 equation using creatinine, age, and sex. Performed By: #### M NATHANIEL BLOOM, HFP ####[facility] (DEFAULT)[address] [place] [address] Glucose [Mass/Vol] 94 mg/dL Normal 70-99 [facility] Comment on above: Performed By: #### NATHANIEL RAMÍREZ, HFP ####[facility] (DEFAULT)[address] [place] [address] Osmolality [Osmolality] 296 mosm/kg Normal 278-305 [facility] Comment on above: Performed By: #### NATHANIEL RAMÍREZ, HFP ####[facility] (DEFAULT)[address] [place] [address] Potassium [Moles/Vol] 3.8 mmol/L Normal 3.5-5.0 [facility] Comment on above: Performed By: #### NATHANIEL RAMÍREZ, HFP ####[facility] (DEFAULT)[address] [facility] [address] Sodium [Moles/Vol] 140 mmol/L Normal 135-145 [facility] Comment on above: Performed By: #### NATHANIEL RAMÍREZ, HFP ####[facility] (DEFAULT)[address] [facility] [address] Urea nitrogen [Mass/Vol] 23 mg/dL Normal 7-25 [facility] Comment on above: Performed By: #### NATHANIEL RAMÍREZ, HFP ####[facility] (DEFAULT)[address] [facility] [address] Urea nitrogen/Creatinine [Mass ratio] 17 mg/mg Normal [facility] Comment on above: Performed By: #### NATHANIEL RAMÍREZ, HFP ####[facility] (DEFAULT)[address] [facility] [address] Anion gap [Moles/Vol] 14 mmol/L 7 - 17 mmol/L [facility] Chloride [Moles/Vol] 105 mmol/L 98 - 10 8 mmol/L [facility] CO2 [Moles/Vol] 25 mmol/L 21 - 31 mmol/L [facility] Creatinine [Mass/Vol] 1.32 mg/dL High 0.70 - 1.30 mg/dL [facility] eGFR, CKD-EPI, Male 65 - PINF [facility] Comment on above: Reported eGFR is bas ed on the CKD-EPI 2020 equation using creatinine, age, and sex. Glucose [Mass/Vol] 94 mg/dL 70 - 99 mg/dL [facility] Osmolality Cal[facility]olality] [facility] Potassium [Moles/Vol] 3.8 mmol/L 3.5 - 5.0 mmol/L [facility] Sodium [Moles/Vol] 140 mmol/L 135 - 145 mmol/L [facility] Urea nitrogen [Mass/Vol] 23 mg/dL 7 - 25 mg/dL [facility] Urea nitrogen/Creatinine [Mass ratio] 17 mg/mg [facility] GLUCOSE POCon 01-23-2024 Glucose [Mass/Vol] 88 mg/dL 70 - 99 mg/dL [facility] POC Sample Type CAPBL [facility] Test performed at ad dress of the patient encounter. [facility] Glucose [Mass/Vol] 191 mg/dL High 70 - 99 mg/dL [facility] Interpretation and review of laboratory results Abnormal [facility] POC Sample Type CAPBL [facility] Test performed at ad dress of the patient encounter. [facility] HEPATIC FUNCTION PANELon Albumin [Mass/Vol] 3.9 g/dL Normal 3.5-5.0 [facility] Comment on above: Performed By: #### M TJ BLOOM7, HFP ####[facility] (DEFAULT)[address] [place] [address] ALP [Catalytic activity/Vol] 83 U/L Normal 32-126 [facility] Comment on above: Performed By: #### Rod BLOOM CHM7, HFP ####[facility] (DEFAULT)[address] [place] [address] ALT [Catalytic activity/Vol] 9 U/L Low 10-52 [facility] Comment on above: Performed By: #### M MERLE CHM7, HFP ####[facility] (DEFAULT)[address] [place] [address] AST [Catalytic activity/Vol] 17 U/L Normal 10-39 [facility] Comment on above: Performed By: #### M MERLE CHM7, HFP ####[facility] (DEFAULT)[address] [place] [address] Bilirubin [Mass/Vol] 1.6 mg/dL High <1.5 [facility] Comment on above: Performed By: #### M NATHANIEL BLOOM, HFP ####[facility] (DEFAULT)[address] [facility] [address] Bilirubin.indirect [Mass/Vol] 0.4 mg/dL High <0.3 [facility] Comment on above: Performed By: #### NATHANIEL RAMÍREZ, HFP ####[facility] (DEFAULT)[address] [facility] [address] Protein [Mass/Vol] 6.6 g/dL Normal 6.4-8.3 [facility] Comment on above: Performed By: #### NATHANIEL RAMÍREZ, HFP ####[facility] (DEFAULT)[address] [facility] [address] Albumin [Mass/Vol] 3.9 g/dL 3.5 - 5.0 g/dL [facility] ALP [Catalytic activity/Vol] 83 U/L 32 - 126 U/L [facility] ALT [Catalytic activity/Vol] 9 U/L Low 10 - 52 U/L [facility] AST [Catalytic activity/Vol] 17 U/L 10 - 39 U/L [facility] Bilirubin [Mass/Vol] 1.6 mg/dL High NINF - 1.5 mg/dL [facility] Bilirubin.direct [Mass/Vol] 0.4 mg/dL High NINF - 0.3 mg/dL [facility] Protein [Mass/Vol] 6.6 g/dL 6.4 - 8.3 g/dL [facility] ITRACONAZOLE LEVELon 024 Hydroxyitraconazole [Mass/Vol] 7.6 mcg/mL [facility] Comment on above: REFERENCE VALUE No [...] by: [facility] [address] [place] [address] International Logistics Manager: Rosendo Bose M.D. Ph.D.; CLIA# [id number] Itraconazole [Mass/Vol] 6.0 mcg/mL [facility] Comment on above: REFERENCE VALUE >0.5 (localized infection), >1.0 (systemic infection) [facility] MAGNESIUMon 01-23-2024 Magnesium [Mass/Vol] 1.8 mg/dL Normal 1.6-2.6 [facility] Comment on above: Performed By: #### Rod BLOOM M7, [facility] ####[facility] (DEFAULT)[address] [place] [address] Interpretation and review of laboratory results Normal [facility] Magnesium [Mass/Vol] 1.8 mg/dL 1.6 - 2 .6 mg/dL [facility] No Panel Informationon 01-23 Interpretation and review of laboratory results Abnormal [facility] TACROLIMUS LEVEL, TROUGH (NM E DRUG LEVEL)on 01-23-2024 Interpretation and review of laboratory results Normal [facility] Tacrolimus (Bld) [Mass/Vol] 7.0 ng/mL Bone Marrow Transplant: 4.0-12.0, Therapeutic: 5.0-15.0 [facility] Method performed is a chemiluminescent microparticle immunoasssay on the [employer] Salt Washer i2000. The range is based on experience at [facility] and users should be aware that target concentrations vary widely depending on concomitant therapy, time post-transplant, and desired degree of immunosuppression. [facility] Tacrolimus, Trough 7.0 ng/mL Normal Bone Susana ow Transplant: 4.0-12.0, Therapeutic: 5.0-15.0 [facility] Comment on above: Order Comment: Pleas e draw at specified interval PRIOR to dose. Do not hold dose to wait for level. Specimens batched twice per day, (M-F) and once per day weekendsMethod performed is a chemiluminescent microparticle immunoasssay on the [employer] Salt Washer i2000.The range is based on experience at [facility] and users should be aware that target concentrations vary widely depending on concomitant therapy, time post-transplant, and desired degree of immunosuppression. Performed By: #### T ACRO ####[facility] (DEFAULT)[address] [place] [id number] CARDIAC RHYTHM (SCANNED)on 0 01-22-2024 [facility] CBC,PLATELETSon 01-22-2024 Hematocrit (Bld) [Volume fraction] 41.5 % Normal 39.6-48.8 [facility] Comment on above: Performed By: #### H EMO ####[facility] (DEFAULT)[address] [place] [address] Hemoglobin (Bld) [Mass/Vol] 13.3 g/dL Low 13.4-16.8 [facility] Comment on above: Performed By: #### H EMOGC ####[facility] (DEFAULT)[address] [place] [address] MCV (RBC) [Entitic vol] 86.8 fL Normal 79.0-94.5 [facility] Comment on above: Performed By: #### H EMOGC ####[facility] (DEFAULT)[address] [place] [address] Mean Cell Hgb 27.8 pg Normal 26.1-33.3 [facility] Comment on above: Performed By: #### H EMOGC ####[facility] (DEFAULT)[address] [facility] [place] [address] Mean Cell Hgb Conc 32.0 g/dL Normal 31.9-36.5 [facility] Comment on above: Performed By: #### H EMOGC ####[facility] (DEFAULT)[address] [facility] [place] [address] Platelet mean volume (Bld) [Entitic vol] 10.5 fL Normal 8.7-12.3 [facility] Comment on above: Performed By: #### H EMOGC ####[facility] (DEFAULT)[address] [facility] [address] Platelets (Bld) [#/Vol] 186 10*3/uL Normal 146-337 [facility] Comment on above: Performed By: #### H EMO ####[facility] (DEFAULT)[address] [facility] [place] [address] RBC (Bld) [#/Vol] 4.78 10*6/uL Normal 4.38-5.83 [facility] Comment on above: Performed By: #### H EMO ####[facility] (DEFAULT)[address] [facility] [place] [address] RBC Distribution 14.1 % Normal 10.9-14.3 [facility] Comment on above: Performed By: #### H EMOGC ####[facility] (DEFAULT)[address] [facility] [address] WBC (Bld) [#/Vol] 3.74 10*3/uL Normal 3.73-10.10 [facility] Comment on above: Performed By: #### H EMOGC ####[facility] (DEFAULT)[address] [facility] [address] Erythrocyte distribution width (RBC) [Ratio] 14.1 % 10.9 - 14.3 % [facility] Hematocrit (Bld) [Volume fraction] 41.5 % 39.6 - 48.8 % [facility] Hemoglobin (Bld) [Mass/Vol] 13.3 g/dL Low 13.4 - 16.8 g/dL [facility] Interpretation and review of laboratory results Abnormal [facility] MCH (RBC) [Entitic mass] 27.8 pg 26.1 - 33.3 pg [facility] MCHC (RBC) [Mass/Vol] 32.0 g/dL 31.9 - 36.5 g/dL [facility] MCV (RBC) [Entitic vol] 86.8 fL 79.0 - 94.5 fL [facility] Platelet mean volume (Bld) [Entitic vol] 10.5 fL 8.7 - 12.3 fL [facility] Platelets (Bld) [#/Vol] 186 10*3/uL 146 - 337 K/uL [facility] RBC (Bld) [#/Vol] 4.78 10*6/uL [facility] WBC (Bld) [#/Vol] 3.74 10*3/uL 3.73 - 10. 10 K/uL [facility] CHEM 7 (LYTES,BUN,CREA,GLUC) on 01-22-2024 Anion gap [Moles/Vol] 13 mmol/L Normal 7-17 [facility] Comment on above: Performed By: #### TJ RAMÍREZ7 ####[facility] (DEFAULT)[address] [place] [address] Chloride [Moles/Vol] 109 mmol/L High 98-108 [facility] Comment on above: Performed By: #### TJ RAMÍREZ7 ####[facility] (DEFAULT)[address] [place] [address] CO2 [Moles/Vol] 23 mmol/L Normal 21-31 [facility] Comment on above: Performed By: #### TJ RAMÍREZ7 ####[facility] (DEFAULT)[address] [place] [address] Creatinine [Mass/Vol] 1.10 mg/dL Normal 0.70-1.30 [facility] Comment on above: Performed By: #### TJ RAMÍREZ7 ####[facility] (DEFAULT)[address] [place] [address] GFR/1.73 sq M.predicted among non-blacks MDRD (S/P/Bld) [Vol rate/Area] 81 mL/min/{1.73_m2} Normal >=60 [facility] Comment on above: Result Comment: Repo rted eGFR is based on the CKD-EPI 2020 equation using creatinine, age, and sex. Performed By: #### TJ RAMÍREZ7 ####[facility] (DEFAULT)[address] [facility] [place] [address] Glucose [Mass/Vol] 84 mg/dL Normal 70-99 [facility] Comment on above: Performed By: #### NATHANIEL RAMÍREZ ####[facility] (DEFAULT)[address] [facility] [place] [address] Osmolality [Osmolality] 295 mosm/kg Normal 278-305 [facility] Comment on above: Performed By: #### NATHANIEL RAMÍREZ ####[facility] (DEFAULT)[address] [place] [address] Potassium [Moles/Vol] 4.0 mmol/L Normal 3.5-5.0 [facility] Comment on above: Performed By: #### TJ RAMÍREZ7 ####[facility] (DEFAULT)[address] [place] [address] Sodium [Moles/Vol] 141 mmol/L Normal 135-145 [facility] Comment on above: Performed By: #### TJ RAMÍREZ7 ####[facility] (DEFAULT)[address] [facility] [place] [address] Urea nitrogen [Mass/Vol] 16 mg/dL Normal 7-25 [facility] Comment on above: Performed By: #### TJ RAMÍREZ7 ####[facility] (DEFAULT)[address] [place] [address] Urea nitrogen/Creatinine [Mass ratio] 15 mg/mg Normal [facility] Comment on above: Performed By: #### Rod BLOOM CHM7 ####[facility] (DEFAULT)[address] [place] [address] Anion gap [Moles/Vol] 13 mmol/L 7 - 17 mmol/L [facility] Chloride [Moles/Vol] 109 mmol/L High 98 - 10 8 mmol/L [facility] CO2 [Moles/Vol] 23 mmol/L 21 - 31 mmol/L [facility] Creatinine [Mass/Vol] 1.10 mg/dL 0.70 - 1.30 mg/dL [facility] eGFR, CKD-EPI, Male 81 - PINF [facility] Comment on above: Reported eGFR is bas ed on the CKD-EPI 2020 equation using creatinine, age, and sex. Glucose [Mass/Vol] 84 mg/dL 70 - 99 mg/dL [facility] Interpretation and review of laboratory results Abnormal [facility] Osmolality Calc [Osmolality] 295 [facility] Potassium [Moles/Vol] 4.0 mmol/L 3.5 - 5.0 mmol/L [facility] Sodium [Moles/Vol] 141 mmol/L 135 - 145 mmol/L [facility] Urea nitrogen [Mass/Vol] 16 mg/dL 7 - 25 mg/dL [facility] Urea nitrogen/Creatinine [Mass ratio] 15 mg/mg [facility] MAGNESIUMon 01-22-2024 Magnesium [Mass/Vol] 2.0 mg/dL Normal 1.6-2.6 [facility] Comment on above: Performed By: #### TJ RAMÍREZ7 ####[facility] (DEFAULT)[address] [place] [address] Interpretation and review of laboratory results Normal [facility] Magnesium [Mass/Vol] 2.0 mg/dL 1.6 - 2 .6 mg/dL [facility] No Panel Informationon 01-22 [facility] PT,INR,PTTon 01-22-2024 aPTT Coag (Bld) [Time] 29.2 s Normal 24.0-34.3 [facility] Comment on above: Performed By: #### P TPTT ####[facility] (DEFAULT)[address] [facility] [address] INR Coag (PPP) [Relative time] 1.1 {INR} Normal 0.9-1.1 [facility] Comment on above: Performed By: #### P TPTT ####[facility] (DEFAULT)[address] [facility] [address] PT Coag (PPP) [Time] 14.3 s High 11.9-14.2 [facility] Comment on above: Performed By: #### P TPTT ####[facility] (DEFAULT)[address] [facility] [address] aPTT Coag (PPP) [Time] 29.2 s [facility] INR Coag (Bld) [Relative time] 1.1 {INR} 0.9 - 1.1 [facility] Interpretation and review of laboratory results Abnormal [facility] PT Coag (PPP) [Time] 14.3 s High [facility] TACROLIMUS LEVEL, TROUGH (NM E DRUG LEVEL)Ordered By: Sheree Jensen on 01-22-2024 Interpretation and review of laboratory results Normal [facility] Tacrolimus (Bld) [Mass/Vol] 7.9 ng/mL Bone Marrow Transplant: 4.0-12.0, Therapeutic: 5.0-15.0 [facility] Method performed is a chemiluminescent microparticle immunoasssay on the [employer] Salt Washer i2000. The range is based on experience at [facility] and users should be aware that target concentrations vary widely depending on concomitant therapy, time post-transplant, and desired degree of immunosuppression. [facility] TACROLIMUS LEVEL, TROUGH (NM E DRUG LEVEL)on 01-22-2024 Tacrolimus, Trough 7.9 ng/mL Normal Bone Susana ow Transplant: 4.0-12.0, Therapeutic: 5.0-15.0 [facility] Comment on above: Order Comment: Pleas e draw at specified interval PRIOR to dose. Do not hold dose to wait for level. Specimens batched twice per day, (M-F) and once per day weekendsMethod performed is a chemiluminescent microparticle immunoasssay on the [employer] Salt Washer i2000.The range is based on experience at [facility] and users should be aware that target concentrations vary widely depending on concomitant therapy, time post-transplant, and desired degree of immunosuppression. Performed By: #### T ACRO ####[facility] (DEFAULT)[address] [place] [address] TYPE AND SCREENon 01-22-2024 ABO/RH(D) TYPE Positive [facility] ABO/RH(D) TYPE Positive Normal [facility] Comment on above: Performed By: #### X M ####[facility] (DEFAULT)[address] [place] [address] [place] Unspecified body regionOr dered By: Unassigned Pacs on 01-22-2024 [facility] Work Phone: [place] Unspecified body regionon 01-22-2024 Radiology Study observation (narrative) [facility] CBC,PLATELETSon 01-21-2024 Hematocrit (Bld) [Volume fraction] 39.4 % Low 39.6-48.8 [facility] Comment on above: Performed By: #### [facility] ####[facility] (DEFAULT)[address] [place] [address] Hemoglobin (Bld) [Mass/Vol] 12.7 g/dL Low 13.4-16.8 [facility] Comment on above: Performed By: #### H EMOGC ####[facility] (DEFAULT)[address] [place] [address] MCV (RBC) [Entitic vol] 87.0 fL Normal 79.0-94.5 [facility] Comment on above: Performed By: #### H EMOGC ####[facility] (DEFAULT)[address] [place] [address] Mean Cell Hgb 28.0 pg Normal 26.1-33.3 [facility] Comment on above: Performed By: #### H EMOGC ####[facility] (DEFAULT)[address] [facility] [place] [address] Mean Cell Hgb Conc 32.2 g/dL Normal 31.9-36.5 [facility] Comment on above: Performed By: #### H EMOGC ####[facility] (DEFAULT)[address] [facility] [place] [address] Platelet mean volume (Bld) [Entitic vol] 10.2 fL Normal 8.7-12.3 [facility] Comment on above: Performed By: #### H EMOGC ####[facility] (DEFAULT)[address] [facility] [place] [address] Platelets (Bld) [#/Vol] 157 10*3/uL Normal 146-337 [facility] Comment on above: Performed By: #### H EMOGC ####[facility] (DEFAULT)[address] [place] [address] RBC (Bld) [#/Vol] 4.53 10*6/uL Normal 4.38-5.83 [facility] Comment on above: Performed By: #### H EMOGC ####[facility] (DEFAULT)[address] [place] [address] RBC Distribution 14.0 % Normal 10.9-14.3 [facility] Comment on above: Performed By: #### H EMOGC ####[facility] (DEFAULT)[address] [facility] [place] [address] WBC (Bld) [#/Vol] 3.42 10*3/uL Low 3.73-10.10 [facility] Comment on above: Performed By: #### H [facility] ####[facility] (DEFAULT)[address] [place] [address] Erythrocyte distribution width (RBC) [Ratio] 14.0 % 10.9 - 14.3 % [facility] Hematocrit (Bld) [Volume fraction] 39.4 % Low 39.6 - 48.8 % [facility] Hemoglobin (Bld) [Mass/Vol] 12.7 g/dL Low 13.4 - 16.8 g/dL [facility] Interpretation and review of laboratory results Abnormal [facility] MCH (RBC) [Entitic mass] 28.0 pg 26.1 - 33.3 pg [facility] MCHC (RBC) [Mass/Vol] 32.2 g/dL 31.9 - 36.5 g/dL [facility] MCV (RBC) [Entitic vol] 87.0 fL 79.0 - 94.5 fL [facility] Platelet mean volume (Bld) [Entitic vol] 10.2 fL 8.7 - 12.3 fL [facility] Platelets (Bld) [#/Vol] 157 10*3/uL 146 - 337 K/uL [facility] RBC (Bld) [#/Vol] 4.53 10*6/uL [facility] WBC (Bld) [#/Vol] 3.42 10*3/uL Low 3.73 - 10. 10 K/uL [facility] CHEM 7 (LYTES,BUN,CREA,GLUC) on 01-21-2024 Anion gap [Moles/Vol] 12 mmol/L Normal 7-17 [facility] Comment on above: Performed By: #### M NATHANIEL BLOOM ####[facility] (DEFAULT)[address] [place] [address] Chloride [Moles/Vol] 107 mmol/L Normal 98-108 [facility] Comment on above: Performed By: #### M MERLE CHM7 ####[facility] (DEFAULT)[address] [place] [address] CO2 [Moles/Vol] 26 mmol/L Normal 21-31 [facility] Comment on above: Performed By: #### Rod BLOOM CHM7 ####[facility] (DEFAULT)[address] [place] [address] Creatinine [Mass/Vol] 1.11 mg/dL Normal 0.70-1.30 [facility] Comment on above: Performed By: #### TJ RAMÍREZ7 ####[facility] (DEFAULT)[address] [facility] [place] [address] GFR/1.73 sq M.predicted among non-blacks MDRD (S/P/Bld) [Vol rate/Area] 80 mL/min/{1.73_m2} Normal >=60 [facility] Comment on above: Result Comment: Repo rted eGFR is based on the CKD-EPI 2020 equation using creatinine, age, and sex. Performed By: #### NATHANIEL RAMÍREZ ####[facility] (DEFAULT)[address] [facility] [place] [address] Glucose [Mass/Vol] 93 mg/dL Normal 70-99 [facility] Comment on above: Performed By: #### TJ RAMÍREZ7 ####[facility] (DEFAULT)[address] [facility] [place] [address] Osmolality [Osmolality] 295 mosm/kg Normal 278-305 [facility] Comment on above: Performed By: #### TJ RAMÍREZ7 ####[facility] (DEFAULT)[address] [place] [address] Potassium [Moles/Vol] 3.9 mmol/L Normal 3.5-5.0 [facility] Comment on above: Performed By: #### TJ RAMÍREZ7 ####[facility] (DEFAULT)[address] [facility] [place] [address] Sodium [Moles/Vol] 141 mmol/L Normal 135-145 [facility] Comment on above: Performed By: #### TJ RAMÍREZ7 ####[facility] (DEFAULT)[address] [facility] [address] Urea nitrogen [Mass/Vol] 15 mg/dL Normal 7-25 [facility] Comment on above: Performed By: #### TJ RAMÍREZ7 ####[facility] (DEFAULT)[address] [facility] [address] Urea nitrogen/Creatinine [Mass ratio] 14 mg/mg Normal [facility] Comment on above: Performed By: #### TJ RAMÍREZ7 ####[facility] (DEFAULT)[address] [place] [address] Anion gap [Moles/Vol] 12 mmol/L 7 - 17 mmol/L [facility] Chloride [Moles/Vol] 107 mmol/L 98 - 10 8 mmol/L [facility] CO2 [Moles/Vol] 26 mmol/L 21 - 31 mmol/L [facility] Creatinine [Mass/Vol] 1.11 mg/dL 0.70 - 1.30 mg/dL [facility] eGFR, CKD-EPI, Male 80 - PINF [facility] Comment on above: Reported eGFR is bas ed on the CKD-EPI 2020 equation using creatinine, age, and sex. Glucose [Mass/Vol] 93 mg/dL 70 - 99 mg/dL [facility] Osmolality Calc [Osmolality] 295 [facility] Potassium [Moles/Vol] 3.9 mmol/L 3.5 - 5.0 mmol/L [facility] Sodium [Moles/Vol] 141 mmol/L 135 - 145 mmol/L [facility] Urea nitrogen [Mass/Vol] 15 mg/dL 7 - 25 mg/dL [facility] Urea nitrogen/Creatinine [Mass ratio] 14 mg/mg [facility] Cardiac catheterization stud yOrdered By: Kelvin Donohue on 01-21-2024 Body surface area Derived from formula 2.08 m2 [facility] Work Phone: [facility] Work Phone: Cardiac catheterization stud yon [...] with fistula occlusion Kelvin Donohue MD, MPH [facility]. Section of Advanced Heart Failure and Transplantation Division of Cardiovascular Diseases [facility] [email or web address] INVASIVE CARDIOVASCULAR PROC EDUREon 01-21-2024 INVASIVE CARDIOVASCULAR PROCEDURE Normal [facility] MAGNESIUMon 01-21-2024 Magnesium [Mass/Vol] 1.5 mg/dL Low 1.6-2.6 [facility] Comment on above: Performed By: #### M HELEN BLOOM7 ####[facility] (DEFAULT)[address] [place] [address] Interpretation and review of laboratory results Abnormal [facility] Magnesium [Mass/Vol] 1.5 mg/dL Low 1.6 - 2 .6 mg/dL [facility] No Panel Informationon 01-21 [facility] TACROLIMUS LEVEL, TROUGH (NM E DRUG LEVEL)on 01-21-2024 Interpretation and review of laboratory results Normal [facility] Tacrolimus (Bld) [Mass/Vol] 7.2 ng/mL Bone Marrow Transplant: 4.0-12.0, Therapeutic: 5.0-15.0 [facility] Method performed is a chemiluminescent microparticle immunoasssay on the [employer]her i2000. The range is based on experience at [facility] and users should be aware that target concentrations vary widely depending on concomitant therapy, time post-transplant, and desired degree of immunosuppression. [facility] Tacrolimus, Trough 7.2 ng/mL Normal Bone Susana ow Transplant: 4.0-12.0, Therapeutic: 5.0-15.0 [facility] Comment on above: Order Comment: Pleas e draw at specified interval PRIOR to dose. Do not hold dose to wait for level. Specimens batched twice per day, (M-F) and once per day weekendsMethod performed is a chemiluminescent microparticle immunoasssay on the [employer] i2000.The range is based on experience at [facility] and users should be aware that target concentrations vary widely depending on concomitant therapy, time post-transplant, and desired degree of immunosuppression. Performed By: #### T ACRO ####[facility] (DEFAULT)[address] [place] [address] CBC,PLATELETSon 01-20-2024 Hematocrit (Bld) [Volume fraction] 38.9 % Low 39.6-48.8 [facility] Comment on above: Performed By: #### H [facility] ####[facility] (DEFAULT)[address] [place] [address] Hemoglobin (Bld) [Mass/Vol] 12.5 g/dL Low 13.4-16.8 [facility] Comment on above: Performed By: #### H [facility] ####[facility] (DEFAULT)[address] [place] [address] MCV (RBC) [Entitic vol] 87.2 fL Normal 79.0-94.5 [facility] Comment on above: Performed By: #### [facility] ####[facility] (DEFAULT)[address] [place] [address] Mean Cell Hgb 28.0 pg Normal 26.1-33.3 [facility] Comment on above: Performed By: #### H EMOGC ####[facility] (DEFAULT)[address] [place] [address] Mean Cell Hgb Conc 32.1 g/dL Normal 31.9-36.5 [facility] Comment on above: Performed By: #### H EMOGC ####[facility] (DEFAULT)[address] [place] [address] Platelet mean volume (Bld) [Entitic vol] 10.2 fL Normal 8.7-12.3 [facility] Comment on above: Performed By: #### H EMOGC ####[facility] (DEFAULT)[address] [facility] [place] [address] Platelets (Bld) [#/Vol] 166 10*3/uL Normal 146-337 [facility] Comment on above: Performed By: #### H EMOGC ####[facility] (DEFAULT)[address] [place] [address] RBC (Bld) [#/Vol] 4.46 10*6/uL Normal 4.38-5.83 [facility] Comment on above: Performed By: #### H EMOGC ####[facility] (DEFAULT)[address] [place] [address] RBC Distribution 13.8 % Normal 10.9-14.3 [facility] Comment on above: Performed By: #### H EMOGC ####[facility] (DEFAULT)[address] [place] [address] WBC (Bld) [#/Vol] 3.79 10*3/uL Normal 3.73-10.10 [facility] Comment on above: Performed By: #### H EMOGC ####[facility] (DEFAULT)[address] [place] [address] Erythrocyte distribution width (RBC) [Ratio] 13.8 % 10.9 - 14.3 % [facility] Hematocrit (Bld) [Volume fraction] 38.9 % Low 39.6 - 48.8 % [facility] Hemoglobin (Bld) [Mass/Vol] 12.5 g/dL Low 13.4 - 16.8 g/dL [facility] Interpretation and review of laboratory results Abnormal [facility] MCH (RBC) [Entitic mass] 28.0 pg 26.1 - 33.3 pg [facility] MCHC (RBC) [Mass/Vol] 32.1 g/dL 31.9 - 36.5 g/dL [facility] MCV (RBC) [Entitic vol] 87.2 fL 79.0 - 94.5 fL [facility] Platelet mean volume (Bld) [Entitic vol] 10.2 fL 8.7 - 12.3 fL [facility] Platelets (Bld) [#/Vol] 166 10*3/uL 146 - 337 K/uL [facility] RBC (Bld) [#/Vol] 4.46 10*6/uL [facility] WBC (Bld) [#/Vol] 3.79 10*3/uL 3.73 - 10. 10 K/uL [facility] CHEM 7 (LYTES,BUN,CREA,GLUC) on 01-20-2024 Anion gap [Moles/Vol] 12 mmol/L Normal 7-17 [facility] Comment on above: Performed By: #### M TAVO BLOOM, CHM7 ####[facility] (DEFAULT)[address] [place] [address] Chloride [Moles/Vol] 105 mmol/L Normal 98-108 [facility] Comment on above: Performed By: #### TAVO RAMÍREZ, CHM7 ####[facility] (DEFAULT)[address] [place] [address] CO2 [Moles/Vol] 28 mmol/L Normal 21-31 [facility] Comment on above: Performed By: #### TAVO RAMÍREZ CHM7 ####[facility] (DEFAULT)[address] [place] [address] Creatinine [Mass/Vol] 1.12 mg/dL Normal 0.70-1.30 [facility] Comment on above: Performed By: #### TAVO RAMÍREZ CHM7 ####[facility] (DEFAULT)[address] [facility] [place] [address] GFR/1.73 sq M.predicted among non-blacks MDRD (S/P/Bld) [Vol rate/Area] 79 mL/min/{1.73_m2} Normal >=60 [facility] Comment on above: Result Comment: Repo rted eGFR is based on the CKD-EPI 2020 equation using creatinine, age, and sex. Performed By: #### TAVO RAMÍREZ CHM7 ####[facility] (DEFAULT)[address] [facility] [address] Glucose [Mass/Vol] 88 mg/dL Normal 70-99 [facility] Comment on above: Performed By: #### TAVO RAMÍREZ, CHM7 ####[facility] (DEFAULT)[address] [facility] [place] [address] Osmolality [Osmolality] 294 mosm/kg Normal 278-305 [facility] Comment on above: Performed By: #### TAVO RAMÍREZ, CHM7 ####[facility] (DEFAULT)[address] [facility] [place] [address] Potassium [Moles/Vol] 3.8 mmol/L Normal 3.5-5.0 [facility] Comment on above: Performed By: #### TAVO RAMÍREZ, CHM7 ####[facility] (DEFAULT)[address] [facility] [place] [address] Sodium [Moles/Vol] 141 mmol/L Normal 135-145 [facility] Comment on above: Performed By: #### M TAVO BLOOM, CHM7 ####[facility] (DEFAULT)[address] [facility] [address] Urea nitrogen [Mass/Vol] 15 mg/dL Normal 7-25 [facility] Comment on above: Performed By: #### M TAVO BLOOM, CHM7 ####[facility] (DEFAULT)[address] [facility] [address] Urea nitrogen/Creatinine [Mass ratio] 13 mg/mg Normal [facility] Comment on above: Performed By: #### M TAVO BLOOM, CHM7 ####[facility] (DEFAULT)[address] [facility] [address] Anion gap [Moles/Vol] 12 mmol/L 7 - 17 mmol/L [facility] Chloride [Moles/Vol] 105 mmol/L 98 - 10 8 mmol/L [facility] CO2 [Moles/Vol] 28 mmol/L 21 - 31 mmol/L [facility] Creatinine [Mass/Vol] 1.12 mg/dL 0.70 - 1.30 mg/dL [facility] eGFR, CKD-EPI, Male 79 - PINF [facility] Comment on above: Reported eGFR is bas ed on the CKD-EPI 2020 equation using creatinine, age, and sex. Glucose [Mass/Vol] 88 mg/dL 70 - 99 mg/dL [facility] Osmolality Calc [Osmolality] 294 [facility] Potassium [Moles/Vol] 3.8 mmol/L 3.5 - 5.0 mmol/L [facility] Sodium [Moles/Vol] 141 mmol/L 135 - 145 mmol/L [facility] Urea nitrogen [Mass/Vol] 15 mg/dL 7 - 25 mg/dL [facility] Urea nitrogen/Creatinine [Mass ratio] 13 mg/mg [facility] Cardiac catheterization stud yon 01-20-2024 [facility] Radiology Study observation (narrative) [facility] Radiology Study observation (narrative) [facility] EBV BY PCR, QUANTITATIVE,BLO ODOrdered By: Charlotte Jensen on 01-20-2024 EBV DNA ESTELITA+probe (Unsp spec) [#/Vol] EUNICE [facility] Interpretation and review of laboratory results Normal [facility] This test was perfor med using a real time PCR assay. The dynamic range for this assay is 1000-5,000,000 IU/mL. A result <1000 IU/mL does not rule out the presence of EBV DNA in quantities below the sensitivity of this assay. This test was developed and its performance characteristics determined by [facility]. It has not been cleared or approved by the FDA. The laboratory is regulated under CLIA as qualified to perform high-complexity testing. This test is used for clinical purposes. It should not be regarded as investigational or for research. [facility] HEPATIC FUNCTION PANELon Albumin [Mass/Vol] 3.7 g/dL Normal 3.5-5.0 [facility] Comment on above: Performed By: #### M TAVO BLOOM, CHM7 ####[facility] (DEFAULT)[address] [facility] [address] ALP [Catalytic activity/Vol] 73 U/L Normal 32-126 [facility] Comment on above: Performed By: #### M MERLE HFP, CHM7 ####[facility] (DEFAULT)[address] [facility] [place] [address] ALT [Catalytic activity/Vol] 12 U/L Normal 10-52 [facility] Comment on above: Performed By: #### M MERLE HFP, CHM7 ####[facility] (DEFAULT)[address] [facility] [place] [address] AST [Catalytic activity/Vol] 19 U/L Normal 10-39 [facility] Comment on above: Performed By: #### M MERLE HFP, CHM7 ####[facility] (DEFAULT)[address] [facility] [address] Bilirubin [Mass/Vol] 2.1 mg/dL High <1.5 [facility] Comment on above: Performed By: #### M TAVO BLOOM, CHM7 ####[facility] (DEFAULT)[address] [facility] [place] [address] Bilirubin.indirect [Mass/Vol] 0.5 mg/dL High <0.3 [facility] Comment on above: Performed By: #### TAVO RAMÍREZ, CHM7 ####[facility] (DEFAULT)[address] [facility] [address] Protein [Mass/Vol] 6.1 g/dL Low 6.4-8.3 [facility] Comment on above: Performed By: #### TAVO RAMÍREZ, CHM7 ####[facility] (DEFAULT)[address] [facility] [place] [address] Albumin [Mass/Vol] 3.7 g/dL 3.5 - 5.0 g/dL [facility] ALP [Catalytic activity/Vol] 73 U/L 32 - 126 U/L [facility] ALT [Catalytic activity/Vol] 12 U/L 10 - 52 U/L [facility] AST [Catalytic activity/Vol] 19 U/L 10 - 39 U/L [facility] Bilirubin [Mass/Vol] 2.1 mg/dL High NINF - 1.5 mg/dL [facility] Bilirubin.direct [Mass/Vol] 0.5 mg/dL High NINF - 0.3 mg/dL [facility] Interpretation and review of laboratory results Abnormal [facility] Protein [Mass/Vol] 6.1 g/dL Low 6.4 - 8.3 g/dL [facility] ITRACONAZOLE LEVELon 01-20- 024 Hydroxyitraconazole 7.6 mcg/mL Normal [facility] Comment on above: Order Comment: Dilan e draw level at specified interval PRIOR to dose. Result Comment: ---- REFERENCE VALUE No therapeutic range established; activity and serumconcentration are similar to parent drug. ADDITIONAL INFORMATION This test was developed and its performance characteristicsdetermined by [facility] in a manner consistent with CLIArequirements. This test has not been cleared or approved bythe U.S. Food and Drug Administration.Test Performed by:[facility] - [address] [id number] Director: Rosendo Bose M.D. Ph.D.; CLIA# [id number] Performed By: #### Y ITCON ####[facility] (DEFAULT)[address] [place] [address] Itraconazole 6.0 mcg/mL Normal [facility] Comment on above: Order Comment: Pleas e draw level at specified interval PRIOR to dose. Result Comment: ---- REFERENCE VALUE-------------------------->0.5 (localized infection), >1.0 (systemic infection) Performed By: #### Y ITCON ####[facility] (DEFAULT)[address] [place] [address] MAGNESIUMon 01-20-2024 Magnesium [Mass/Vol] 1.6 mg/dL Normal 1.6-2.6 [facility] Comment on above: Performed By: #### TAVO RAMÍREZ, CHM7 ####[facility] (DEFAULT)[address] [place] [address] Interpretation and review of laboratory results Normal [facility] Magnesium [Mass/Vol] 1.6 mg/dL 1.6 - 2 .6 mg/dL [facility] No Panel Informationon 01-20 [facility] POCT CO-OXIMETRYon Hemoglobin (Bld) [Mass/Vol] 12.8 g/dL Low 13.4 - 16.8 g/dL [facility] Interpretation and review of laboratory results Abnormal [facility] Oxyhemoglobin 69 % Low 94 - 98 % [facility] Ordering physician notified. Test performed at address of the patient encounter. [facility] Hemoglobin (Bld) [Mass/Vol] 13.3 g/dL Low 13.4 - 16.8 g/dL [facility] Interpretation and review of laboratory results Abnormal [facility] Oxyhemoglobin 69 % Low 94 - 98 % [facility] Ordering physician notified. Test performed at address of the patient encounter. [facility] PT,INR,PTTon 01-20-2024 aPTT Coag (Bld) [Time] 30.6 s Normal 24.0-34.3 [facility] Comment on above: Performed By: #### P TPTT ####[facility] (DEFAULT)[address] [facility] [address] INR Coag (PPP) [Relative time] 1.2 {INR} High 0.9-1.1 [facility] Comment on above: Performed By: #### P TPTT ####[facility] (DEFAULT)[address] [facility] [address] PT Coag (PPP) [Time] 15.5 s High 11.9-14.2 [facility] Comment on above: Performed By: #### P TPTT ####[facility] (DEFAULT)[address] [facility] [address] aPTT Coag (PPP) [Time] 30.6 s [facility] INR Coag (Bld) [Relative time] 1.2 {INR} High 0.9 - 1.1 [facility] Interpretation and review of laboratory results Abnormal [facility] PT Coag (PPP) [Time] 15.5 s High [facility] TACROLIMUS LEVEL, TROUGH (NM E DRUG LEVEL)Ordered By: Yanira Marcum on 01-20-2024 Interpretation and review of laboratory results Normal [facility] Tacrolimus (Bld) [Mass/Vol] 7.7 ng/mL Bone Marrow Transplant: 4.0-12.0, Therapeutic: 5.0-15.0 [facility] Method performed is a chemiluminescent microparticle immunoasssay on the [employer] i2000. The range is based on experience at [facility] and users should be aware that target concentrations vary widely depending on concomitant therapy, time post-transplant, and desired degree of immunosuppression. [facility] TACROLIMUS LEVEL, TROUGH (NM E DRUG LEVEL)on 01-20-2024 Tacrolimus, Trough 7.7 ng/mL Normal Bone Susana ow Transplant: 4.0-12.0, Therapeutic: 5.0-15.0 [facility] Comment on above: Order Comment: Pleas e draw at specified interval PRIOR to dose. Do not hold dose to wait for level. Specimens batched twice per day, (M-F) and once per day weekendsMethod performed is a chemiluminescent microparticle immunoasssay on the [employer] i2000.The range is based on experience at [facility] and users should be aware that target concentrations vary widely depending on concomitant therapy, time post-transplant, and desired degree of immunosuppression. Performed By: #### T ACRO ####[facility] (DEFAULT)[address] [address] CBC,PLATELETSon 01-19-2024 Hematocrit (Bld) [Volume fraction] 37.5 % Low 39.6-48.8 [facility] Comment on above: Performed By: #### [facility] ####[facility] (DEFAULT)[address] [address] Hemoglobin (Bld) [Mass/Vol] 12.1 g/dL Low 13.4-16.8 [facility] Comment on above: Performed By: #### H [facility] ####[facility] (DEFAULT)[address] [facility] [place] [address] MCV (RBC) [Entitic vol] 87.8 fL Normal 79.0-94.5 [facility] Comment on above: Performed By: #### H EMOGC ####[facility] (DEFAULT)[address] [place] [address] Mean Cell Hgb 28.3 pg Normal 26.1-33.3 [facility] Comment on above: Performed By: #### H EMOGC ####[facility] (DEFAULT)[address] [facility] [place] [address] Mean Cell Hgb Conc 32.3 g/dL Normal 31.9-36.5 [facility] Comment on above: Performed By: #### H EMOGC ####[facility] (DEFAULT)[address] [facility] [place] [address] Platelet mean volume (Bld) [Entitic vol] 10.4 fL Normal 8.7-12.3 [facility] Comment on above: Performed By: #### H EMOGC ####[facility] (DEFAULT)[address] [facility] [place] [address] Platelets (Bld) [#/Vol] 163 10*3/uL Normal 146-337 [facility] Comment on above: Performed By: #### H EMOGC ####[facility] (DEFAULT)[address] [place] [address] RBC (Bld) [#/Vol] 4.27 10*6/uL Low 4.38-5.83 [facility] Comment on above: Performed By: #### H EMOGC ####[facility] (DEFAULT)[address] [facility] [place] [address] RBC Distribution 13.9 % Normal 10.9-14.3 [facility] Comment on above: Performed By: #### H EMOGC ####[facility] (DEFAULT)[address] [facility] [place] [address] WBC (Bld) [#/Vol] 3.69 10*3/uL Low 3.73-10.10 [facility] Comment on above: Performed By: #### H [facility] ####[facility] (DEFAULT)[address] [place] [address] Erythrocyte distribution width (RBC) [Ratio] 13.9 % 10.9 - 14.3 % [facility] Hematocrit (Bld) [Volume fraction] 37.5 % Low 39.6 - 48.8 % [facility] Hemoglobin (Bld) [Mass/Vol] 12.1 g/dL Low 13.4 - 16.8 g/dL [facility] Interpretation and review of laboratory results Abnormal [facility] MCH (RBC) [Entitic mass] 28.3 pg 26.1 - 33.3 pg [facility] MCHC (RBC) [Mass/Vol] 32.3 g/dL 31.9 - 36.5 g/dL [facility] MCV (RBC) [Entitic vol] 87.8 fL 79.0 - 94.5 fL [facility] Platelet mean volume (Bld) [Entitic vol] 10.4 fL 8.7 - 12.3 fL [facility] Platelets (Bld) [#/Vol] 163 10*3/uL 146 - 337 K/uL [facility] RBC (Bld) [#/Vol] 4.27 10*6/uL Low [facility] WBC (Bld) [#/Vol] 3.69 10*3/uL Low 3.73 - 10. 10 K/uL [facility] CHEM 7 (LYTES,BUN,CREA,GLUC) on 01-19-2024 Anion gap [Moles/Vol] 14 mmol/L Normal 7-17 [facility] Comment on above: Performed By: #### M MERLE, CHM7 ####[facility] (DEFAULT)[address] [place] [address] Chloride [Moles/Vol] 106 mmol/L Normal 98-108 [facility] Comment on above: Performed By: #### NATHANIEL RAMÍREZ ####[facility] (DEFAULT)[address] [facility] [address] CO2 [Moles/Vol] 24 mmol/L Normal 21-31 [facility] Comment on above: Performed By: #### NATHANIEL RAMÍREZ ####[facility] (DEFAULT)[address] [facility] [address] Creatinine [Mass/Vol] 1.13 mg/dL Normal 0.70-1.30 [facility] Comment on above: Performed By: #### TJ RAMÍREZ7 ####[facility] (DEFAULT)[address] [place] [address], [place] [address] GFR/1.73 sq M.predicted among non-blacks MDRD (S/P/Bld) [Vol rate/Area] 78 mL/min/{1.73_m2} Normal >=60 [facility] Comment on above: Result Comment: Repo rted eGFR is based on the CKD-EPI 2020 equation using creatinine, age, and sex. Performed By: #### NATHANIEL RAMÍREZ ####[facility] (DEFAULT)[address] [place] [address], [place] [address] Glucose [Mass/Vol] 86 mg/dL Normal 70-99 [facility] Comment on above: Performed By: #### NATHANIEL RAMÍREZ ####[facility] (DEFAULT)[address] [place] [address] [place] [address] Osmolality [Osmolality] 293 mosm/kg Normal 278-305 [facility] Comment on above: Performed By: #### NATHANIEL RAMÍERZ ####[facility] (DEFAULT)[address] [place] [address], [place] [address] Potassium [Moles/Vol] 3.8 mmol/L Normal 3.5-5.0 [facility] Comment on above: Performed By: #### TJ RAMÍREZ7 ####[facility] (DEFAULT)[address] [facility] [address] Sodium [Moles/Vol] 140 mmol/L Normal 135-145 [facility] Comment on above: Performed By: #### Rod BLOOM CHM7 ####[facility] (DEFAULT)[address] [facility] [place] [address] Urea nitrogen [Mass/Vol] 16 mg/dL Normal 7-25 [facility] Comment on above: Performed By: #### Rod BLOOM CHM7 ####[facility] (DEFAULT)[address] [facility] [address] Urea nitrogen/Creatinine [Mass ratio] 14 mg/mg Normal [facility] Comment on above: Performed By: #### Rod BLOOM CHM7 ####[facility] (DEFAULT)[address] [facility] [address] Anion gap [Moles/Vol] 14 mmol/L 7 - 17 mmol/L [facility] Chloride [Moles/Vol] 106 mmol/L 98 - 10 8 mmol/L [facility] CO2 [Moles/Vol] 24 mmol/L 21 - 31 mmol/L [facility] Creatinine [Mass/Vol] 1.13 mg/dL 0.70 - 1.30 mg/dL [facility] eGFR, CKD-EPI, Male 79 - PINF [facility] Comment on above: Reported eGFR is bas ed on the CKD-EPI 2020 equation using creatinine, age, and sex. Glucose [Mass/Vol] 86 mg/dL 70 - 99 mg/dL [facility] Osmolality Calc [Osmolality] [facility] Potassium [Moles/Vol] 3.8 mmol/L 3.5 - 5.0 mmol/L [facility] Sodium [Moles/Vol] 140 mmol/L 135 - 145 mmol/L [facility] Urea nitrogen [Mass/Vol] 16 mg/dL 7 - 25 mg/dL [facility] Urea nitrogen/Creatinine [Mass ratio] 14 mg/mg [facility] EBV BY PCR, QUANTITATIVE,BLO ODon 01-19-2024 Ebv By Pcr, Quant, Blood <1000 Normal <1000 [facility] Comment on above: Order Comment: This test was performed using a real time PCR assay. The dynamic range for this assay is 1000-5,000,000 IU/mL. A result <1000 IU/mL does not rule out the presence of EBV DNA in quantities below the sensitivity of this assay. This test was developed and its performance characteristics determined by [facility]. It has not been cleared or approved by the FDA. The laboratory is regulated under CLIA as qualified to perform high-complexity testing. This test is used for clinical purposes. It should not be regarded as investigational or for research. Performed By: #### E BVPCR ####[facility] (DEFAULT)[address] [place] [address] HISTOPLASMA AND BLASTOMYCES ANTIGEN, ENZYME IMMUNOASSAY, SERMon 01-19-2024 Histoplasma/Blastomy antonia Ag Result Not detected Not Detected [facility] Comment on above: No antigen from Hist oplasma or Blastomyces detected. False negative results may occur depending on extent of disease, and/or site of infection. Repeat testing on a new specimen if clinically indicated. Histoplasma/Blastomy antonia Ag Value Not detected ng/mL [facility] Comment on above: ADDITIONAL INFORMATION This test was developed and its performance characteristics determined by [facility] in a manner consistent with CLIA requirements. This test has not been cleared or approved by the U.S. Food and Drug Administration. Test Performed by: [facility] [address] [place] [address] International Logistics Manager: Rosendo Bose M.D. Ph.D.; CLIA# [id number] [facility] MAGNESIUMon 01-19-2024 Magnesium [Mass/Vol] 1.8 mg/dL Normal 1.6-2.6 [facility] Comment on above: Performed By: #### NATHANIEL RAMÍREZ ####[facility] (DEFAULT)[address] [place] [address] Interpretation and review of laboratory results Normal [facility] Magnesium [Mass/Vol] 1.8 mg/dL 1.6 - 2 .6 mg/dL [facility] No Panel Informationon 01-19 [facility] TACROLIMUS LEVEL, TROUGH (NM E DRUG LEVEL)Ordered By: Raymundo Mehta on 01-19-2024 Interpretation and review of laboratory results Normal [facility] Tacrolimus (Bld) [Mass/Vol] 6.8 ng/mL Bone Marrow Transplant: 4.0-12.0, Therapeutic: 5.0-15.0 [facility] Method performed is a chemiluminescent microparticle immunoasssay on the [employer] i2000. The range is based on experience at [facility] and users should be aware that target concentrations vary widely depending on concomitant therapy, time post-transplant, and desired degree of immunosuppression. [facility] TACROLIMUS LEVEL, TROUGH (NM E DRUG LEVEL)on 01-19-2024 Tacrolimus, Trough 6.8 ng/mL Normal Bone Susana ow Transplant: 4.0-12.0, Therapeutic: 5.0-15.0 [facility] Comment on above: Order Comment: Pleas e draw at specified interval PRIOR to dose. Do not hold dose to wait for level. Specimens batched twice per day, (M-F) and once per day weekendsMethod performed is a chemiluminescent microparticle immunoasssay on the [employer] i2000.The range is based on experience at [facility] and users should be aware that target concentrations vary widely depending on concomitant therapy, time post-transplant, and desired degree of immunosuppression. Performed By: #### T ACRO ####[facility] (DEFAULT)[address] [place] [address] US AV fistulaOrdered By: Diana Reyes on 01-19-2024 [facility] Work Phone: US AV fistulaon 01-19-2024 Radiology Study observation (narrative) [facility] AFP TUMOR MARKEROrdered By: Francisca Alaniz on 01-18-2024 AFP.tumor marker [Mass/Vol] ng/mL NINF - 8.1 ng/mL [facility] Comment on above: This test was perfor med on the [employer] Immunoassay platform by [employer] which is a two-site sandwich chemiluminescent immunoassay. It is important to note that assays using different manufacturers and/or methods may not be comparable. Interpretation and review of laboratory results Normal [facility] CBC,PLATELETSon 01-18-2024 Hematocrit (Bld) [Volume fraction] 38.4 % Low 39.6-48.8 [facility] Comment on above: Performed By: #### H EMO ####[facility] (DEFAULT)[address] [place] [address] Hemoglobin (Bld) [Mass/Vol] 12.1 g/dL Low 13.4-16.8 [facility] Comment on above: Performed By: #### H EMOGC ####[facility] (DEFAULT)[address] [place] [address], [place] [address] MCV (RBC) [Entitic vol] 88.3 fL Normal 79.0-94.5 [facility] Comment on above: Performed By: #### H EMO ####[facility] (DEFAULT)[address] [facility] [address] Mean Cell Hgb 27.8 pg Normal 26.1-33.3 [facility] Comment on above: Performed By: #### H EMOGC ####[facility] (DEFAULT)[address] [place] [address] [place] [address] Mean Cell Hgb Conc 31.5 g/dL Low 31.9-36.5 [facility] Comment on above: Performed By: #### H EMOGC ####[facility] (DEFAULT)[address] [place] [address], [place] [address] Platelet mean volume (Bld) [Entitic vol] 10.4 fL Normal 8.7-12.3 [facility] Comment on above: Performed By: #### H EMOGC ####[facility] (DEFAULT)[address] [facility] [address] Platelets (Bld) [#/Vol] 183 10*3/uL Normal 146-337 [facility] Comment on above: Performed By: #### H EMO ####[facility] (DEFAULT)[address] [facility] [address] RBC (Bld) [#/Vol] 4.35 10*6/uL Low 4.38-5.83 [facility] Comment on above: Performed By: #### H EMO ####[facility] (DEFAULT)[address] [facility] [address] RBC Distribution 13.9 % Normal 10.9-14.3 [facility] Comment on above: Performed By: #### H [facility] ####[facility] (DEFAULT)[address] [facility] [address] WBC (Bld) [#/Vol] 3.66 10*3/uL Low 3.73-10.10 [facility] Comment on above: Performed By: #### H [facility] ####[facility] (DEFAULT)[address] [facility] [address] Erythrocyte distribution width (RBC) [Ratio] 13.9 % 10.9 - 14.3 % [facility] Hematocrit (Bld) [Volume fraction] 38.4 % Low 39.6 - 48.8 % [facility] Hemoglobin (Bld) [Mass/Vol] 12.1 g/dL Low 13.4 - 16.8 g/dL [facility] Interpretation and review of laboratory results Abnormal [facility] MCH (RBC) [Entitic mass] 27.8 pg 26.1 - 33.3 pg [facility] MCHC (RBC) [Mass/Vol] 31.5 g/dL Low 31.9 - 36.5 g/dL [facility] MCV (RBC) [Entitic vol] 88.3 fL 79.0 - 94.5 fL [facility] Platelet mean volume (Bld) [Entitic vol] 10.4 fL 8.7 - 12.3 fL [facility] Platelets (Bld) [#/Vol] 183 10*3/uL 146 - 337 K/uL [facility] RBC (Bld) [#/Vol] 4.35 10*6/uL Low [facility] WBC (Bld) [#/Vol] 3.66 10*3/uL Low 3.73 - 10. 10 K/uL [facility] CHEM 7 (LYTES,BUN,CREA,GLUC) on 01-18-2024 Anion gap [Moles/Vol] 11 mmol/L Normal 7-17 [facility] Comment on above: Performed By: #### C HM7, HFP, MGO, TSHQR ####[facility] (DEFAULT)[address] [place] [address] Chloride [Moles/Vol] 108 mmol/L Normal 98-108 [facility] Comment on above: Performed By: #### C HM7, HFP, MGO, TSHQR ####[facility] (DEFAULT)[address] [place] [address] CO2 [Moles/Vol] 26 mmol/L Normal 21-31 [facility] Comment on above: Performed By: #### C HM7, HFP, MGO, TSHQR ####[facility] (DEFAULT)[address] [place] [address] Creatinine [Mass/Vol] 1.00 mg/dL Normal 0.70-1.30 [facility] Comment on above: Performed By: #### C HM7, HFP, MGO, TSHQR ####[facility] (DEFAULT)[address] [place] [address] eGFR, CKD-EPI, Male > Normal >=60 [facility] Comment on above: Result Comment: Repo rted eGFR is based on the CKD-EPI 2020 equation using creatinine, age, and sex. Performed By: #### C HM7, HFP, MGO, TSHQR ####[facility] (DEFAULT)[address] [place] [address] Glucose [Mass/Vol] 89 mg/dL Normal 70-99 [facility] Comment on above: Performed By: #### C HM7, HFP, MGO, TSHQR ####[facility] (DEFAULT)[address] [place] [address] Osmolality [Osmolality] 295 mosm/kg Normal 278-305 [facility] Comment on above: Performed By: #### C HM7, HFP, MGO, TSHQR ####[facility] (DEFAULT)[address] [place] [address] Potassium [Moles/Vol] 3.9 mmol/L Normal 3.5-5.0 [facility] Comment on above: Performed By: #### C HM7, HFP, MGO, TSHQR ####[facility] (DEFAULT)[address] [place] [address] Sodium [Moles/Vol] 141 mmol/L Normal 135-145 [facility] Comment on above: Performed By: #### C HM7, HFP, MGO, TSHQR ####[facility] (DEFAULT)[address] [place] [address] Urea nitrogen [Mass/Vol] 16 mg/dL Normal 7-25 [facility] Comment on above: Performed By: #### C HM7, HFP, MGO, TSHQR ####[facility] (DEFAULT)[address] [place] [address] Urea nitrogen/Creatinine [Mass ratio] 16 mg/mg Normal [facility] Comment on above: Performed By: #### C HM7, HFP, MGO, TSHQR ####[facility] (DEFAULT)[address] [place] [address] Anion gap [Moles/Vol] 11 mmol/L 7 - 17 mmol/L [facility] Chloride [Moles/Vol] 108 mmol/L 98 - 10 8 mmol/L [facility] CO2 [Moles/Vol] 26 mmol/L 21 - 31 mmol/L [facility] Creatinine [Mass/Vol] 1.00 mg/dL 0.70 - 1.30 mg/dL [facility] eGFR, CKD-EPI, Male - PINF [facility] Comment on above: Reported eGFR is bas ed on the CKD-EPI 2020 equation using creatinine, age, and sex. Glucose [Mass/Vol] 89 mg/dL 70 - 99 mg/dL [facility] Osmolality Calc [Osmolality] 295 [facility] Potassium [Moles/Vol] 3.9 mmol/L 3.5 - 5.0 mmol/L [facility] Sodium [Moles/Vol] 141 mmol/L 135 - 145 mmol/L [facility] Urea nitrogen [Mass/Vol] 16 mg/dL 7 - 25 mg/dL [facility] Urea nitrogen/Creatinine [Mass ratio] 16 mg/mg [facility] Cardiac echo study Procedure Ordered By: Gian Carlos on 01-18-2024 Ao ASC index 1.63 cm/m2 [facility] Work Phone: Ao peak meliton 1.46 m/s [facility] Work Phone: Ao SOV index 1.56 cm/m2 [facility] Work Phone: Ao STJ index 1.25 cm/m2 [facility] Work Phone: Ao VTI 35.74 cm [facility] Work Phone: Ascending aorta 3.[address] Work Phone: AV LVOT peak [facility]: [facility] mean gradient 5 [facility] Work [facility]: AV peak gradient 9 mmHG [facility] Work Phone: AV valve area 3.09 cm2 [facility] Work Phone: AV Velocity Ratio 0.73 [facility] Work Phone: VEGA (continuity Vmax) 3.01 cm2 [facility] Work Phone: VEGA (continuity VTI) 3.09 cm2 [facility] Work Phone: VEGA index (continuity Vmax) 1.45 m/s [facility] Work Phone: VEGA index (continuity VTI) 1.49 cm2/m2 [facility] Work Phone: Avg e' pk meliton 0.07 m/s [facility] Work Phone: Avg E/e' ratio 19.45 [facility] Work Phone: Body surface area Derived from formula 2.08 m2 [facility] Work Phone: BP EF 62 % [facility] Work Phone: DI (Vmax) 0.73 [facility] Work Phone: DI (VTI) 0.74 m/2 [facility] Work Phone: E wave decelartion time 180.38 msec [facility] Work Phone: e' lateral pk meliton 0.0789 m/s [facility] Work Phone: e' lateral pk meliton 0.08 m/s [facility] Work Phone: e' septal pk meliton 0.0653 m/s [facility] Work Phone: e' septal pk meliton 0.07 m/s [facility] Work Phone: E/A ratio 2.67 [facility] Work Phone: E/e' lateral ratio 17.62 [facility] Work Phone: E/e' septal ratio 21.29 [facility] Work Phone: EF SP 2CH 66 [facility] Work [facility]: EF SP 4CH 58 [facility] Work Phone: FS 28 % 28 - 44 % [facility] Work Phone: IVC ostium 2.30 cm [facility] Work Phone: IVS 1.11 cm [facility] Work Phone: LA AREA 2CH 24.36 cm2 [facility] Work Phone: LA area 4CH 20.36 cm2 [facility] Work Phone: LA ESV BP (MOD) 64 mL [facility] Work Phone: LA ESV BP (MOD) index 31 mL/m2 [facility] Work Phone: LA ESV SP 2CH (MOD) 76 mL [facility] Work Phone: LA ESV SP 4CH (MOD) 53 mL [facility] Work Phone: LV EDV BP 180 mL [facility] Work Phone: LV EDV SP 2CH 190 mL [facility] Work Phone: LV EDV SP 4CH 166 mL [facility] Work Phone: LV ESV BP 69 mL [facility] Work Phone: LV ESV SP 2CH 65 mL [facility] Work Phone: [phone] LV ESV SP 4CH 70 mL [facility] Work Phone: LV mass 254.73 g [facility] Work Phone: LV Mass Index 122.5 g/m2 [facility] Work Phone: LV RWT 0.42 [facility] Work Phone: LV stroke volume BP (ml) 111 mL [facility] Work Phone: LV stroke volume index BP 53.37 mL/m2 [facility] Work Phone: LVIDD 5.53 cm [facility] Work Phone: LVIDS 3.97 cm [facility] Work Phone: LVOT area 4.15 cm2 [facility] Work Phone: LVOT diameter 2.30 cm [facility] Work Phone: LVOT peak meliton 1.06 m/s [facility] Work Phone: LVOT peak VTI 26.61 cm [facility] Work Phone: LVOT stroke volume 111 cm3 [facility] Work Phone: LVOT stroke volume index 53.13 ml/m2 [facility] Work Phone: Mr max meliton 4.21 m/s [facility] Work Phone: MR VTI 134.50 cm [facility] Work Phone: MV mean gradient 3 mmHg [facility] Work Phone: MV peak gradient 11 mmHg [facility] Work Phone: MV pk A meliton 0.52 m/s [facility] Work Phone: MV pk E meliton 1.39 m/s [facility] Work Phone: MV stenosis pressure 1/2 time 58.56 ms [facility] Work Phone: MV valve area by continuity eq 2.93 cm2 [facility] Work Phone: MV valve area p 1/2 method 3.76 cm2 [facility] Work Phone: MV VTI 37.70 cm [facility] Work Phone: MVA (continuity VTI) 2.92 cm [facility] Work Phone: [facility]SU AV VTI RATIO PRE STRESS 0.74 [facility] Work Phone: [facility]SU ECHO LV BIPLANE SYSTOLIC VOLUME INDEX 33.17 mL/m2 [facility] Work Phone: [facility] ECHO LV BP DIASTOLIC VOLUME INDEX 86.54 mL/m2 [facility] Work Phone: [facility] ECHO MR PEAK GRADIENT 70.94 mmHg [facility] Work Phone: PW 1.16 cm [facility] Work Phone: RA area 4CH (MOD) 14.50 cm2 [facility] Work Phone: RA vol index 4CH (MOD) 18.27 mL/m2 [facility] Work Phone: Right atrium volume 4 chamber method of disks 38 mL [facility] Work Phone: RV Area diastolic 33.20 cm2 [facility] Work Phone: RV Area systolic 21.30 cm2 [facility] Work Phone: RV basal diam 4.52 cm [facility] Work Phone: RV Fractional area change 35.8 % [facility] Work Phone: RV long diam 8.96 cm [facility] Work Phone: RV mid diam 3.70 cm [facility] Work Phone: RV S' 22.01 cm/s [facility] Work Phone: RVOT peak gradient 4 mmHg [facility] Work Phone: RVOT peak meliton 0.96 m/s [facility] Work Phone: RVOT peak VTI 20.86 cm [facility] Work Phone: Sinus 3.24 cm [facility] Work Phone: STJ 2.61 cm [facility] Work Phone: Stroke Volume 111 cm/mL [facility] Work Phone: Stroke volume index 53 [facility] Work [facility]: TAPSE 2.19 cm [facility] Work Phone: [facility] Work Phone: Cardiac echo study Procedure [...] echocardiography study was performed. Imaging system used: Bozuko. Indications Indications for study: shortness of breath. [facility] Radiology Study observation (narrative) [facility] HEPATIC FUNCTION PANELon Albumin [Mass/Vol] 3.5 g/dL Normal 3.5-5.0 [facility] Comment on above: Performed By: #### C HM7, HFP, MGO, TSHQR ####[facility] (DEFAULT)[address] [place] [address] ALP [Catalytic activity/Vol] 70 U/L Normal 32-126 [facility] Comment on above: Performed By: #### C HM7, HFP, MGO, TSHQR ####[facility] (DEFAULT)[address] [place] [address] ALT [Catalytic activity/Vol] 8 U/L Low 10-52 [facility] Comment on above: Performed By: #### C HM7, HFP, MGO, TSHQR ####[facility] (DEFAULT)[address] [place] [address] AST [Catalytic activity/Vol] 20 U/L Normal 10-39 [facility] Comment on above: Performed By: #### C HM7, HFP, MGO, TSHQR ####[facility] (DEFAULT)[address] [place] [address] Bilirubin [Mass/Vol] 1.7 mg/dL High <1.5 [facility] Comment on above: Performed By: #### C HM7, HFP, MGO, TSHQR ####[facility] (DEFAULT)[address] [place] [address] Bilirubin.indirect [Mass/Vol] 0.4 mg/dL High <0.3 [facility] Comment on above: Performed By: #### C HM7, HFP, MGO, TSHQR ####[facility] (DEFAULT)[address] [place] [address] Protein [Mass/Vol] 6.0 g/dL Low 6.4-8.3 [facility] Comment on above: Performed By: #### C HM7, HFP, MGO, TSHQR ####[facility] (DEFAULT)[address] [place] [address] Albumin [Mass/Vol] 3.5 g/dL 3.5 - 5.0 g/dL [facility] ALP [Catalytic activity/Vol] 70 U/L 32 - 126 U/L [facility] ALT [Catalytic activity/Vol] 8 U/L Low 10 - 52 U/L [facility] AST [Catalytic activity/Vol] 20 U/L 10 - 39 U/L [facility] Bilirubin [Mass/Vol] 1.7 mg/dL High NINF - 1.5 mg/dL [facility] Bilirubin.direct [Mass/Vol] 0.4 mg/dL High NINF - 0.3 mg/dL [facility] Protein [Mass/Vol] 6.0 g/dL Low 6.4 - 8.3 g/dL [facility] MAGNESIUMon 01-18-2024 Magnesium [Mass/Vol] 1.5 mg/dL Low 1.6-2.6 [facility] Comment on above: Performed By: #### C HM7, HFP, MGO, TSHQR ####[facility] (DEFAULT)[address] [facility] [address] Magnesium [Mass/Vol] 1.5 mg/dL Low 1.6 - 2 .6 mg/dL [facility] No Panel Informationon 01-18 Interpretation and review of laboratory results Abnormal [facility] PT,INR,PTTon 01-18-2024 aPTT Coag (Bld) [Time] 30.0 s Normal 24.0-34.3 [facility] Comment on above: Performed By: #### P TPTT ####[facility] (DEFAULT)[address] [facility] [address] INR Coag (PPP) [Relative time] 1.1 {INR} Normal 0.9-1.1 [facility] Comment on above: Performed By: #### P TPTT ####[facility] (DEFAULT)[address] [facility] [place] [address] PT Coag (PPP) [Time] 14.5 s High 11.9-14.2 [facility] Comment on above: Performed By: #### P TPTT ####[facility] (DEFAULT)[address] [facility] [place] [address] aPTT Coag (PPP) [Time] 30.0 s [facility] INR Coag (Bld) [Relative time] 1.1 {INR} 0.9 - 1.1 [facility] Interpretation and review of laboratory results Abnormal [facility] PT Coag (PPP) [Time] 14.5 s High [facility] TSH W/FT4 REFLEXon 4 Interpretation and review of laboratory results Normal [facility] TSH Qn 2.660 m[IU]/L [facility] TSH 2.660 uIU/mL Normal 0.550-4.780 [facility] Comment on above: Performed By: #### C HM7, HFP, MGO, TSHQR ####[facility] (DEFAULT)[address] [place] [address] AFP TUMOR MARKERon 4 AFP Tumor Marker <2.2 Normal <8.1 [facility] Comment on above: Result Comment: This test was performed on the [employer] Immunoassay platform by [employer] which is a two-site sandwich chemiluminescent immunoassay. It is important to note that assays using different manufacturers and/or methods may not be comparable. Performed By: #### A FPTMR ####[facility] (DEFAULT)[address] [place] [address] DARYL AURIS SCREEN BY PCRO rdered By: Mynor Alejandro on 01-17-2024 Daryl auris Screen by PCR Not detected Not Detected [facility] Interpretation and review of laboratory results Normal [facility] This test was perfor med using a real-time PCR assay. This test was developed, and its performance characteristics determined by [facility]. It has not been cleared or approved by the FDA. The laboratory is regulated under CLIA as qualified to perform high-complexity testing. This test is used for clinical purposes. It should not be regarded as investigational or for research. [facility] CBC,PLATELETSon 01-17-2024 Hematocrit (Bld) [Volume fraction] 37.2 % Low 39.6-48.8 [facility] Comment on above: Performed By: #### H EMO ####[facility] (DEFAULT)[address] [place] [address] Hemoglobin (Bld) [Mass/Vol] 12.0 g/dL Low 13.4-16.8 [facility] Comment on above: Performed By: #### H EMOGC ####[facility] (DEFAULT)[address] [place] [address] MCV (RBC) [Entitic vol] 86.5 fL Normal 79.0-94.5 [facility] Comment on above: Performed By: #### H EMOGC ####[facility] (DEFAULT)[address] [place] [address] Mean Cell Hgb 27.9 pg Normal 26.1-33.3 [facility] Comment on above: Performed By: #### H EMOGC ####[facility] (DEFAULT)[address] [facility] [place] [address] Mean Cell Hgb Conc 32.3 g/dL Normal 31.9-36.5 [facility] Comment on above: Performed By: #### H EMOGC ####[facility] (DEFAULT)[address] [facility] [place] [address] Platelet mean volume (Bld) [Entitic vol] 10.5 fL Normal 8.7-12.3 [facility] Comment on above: Performed By: #### H EMOGC ####[facility] (DEFAULT)[address] [place] [address] Platelets (Bld) [#/Vol] 159 10*3/uL Normal 146-337 [facility] Comment on above: Performed By: #### H EMOGC ####[facility] (DEFAULT)[address] [facility] [place] [address] RBC (Bld) [#/Vol] 4.30 10*6/uL Low 4.38-5.83 [facility] Comment on above: Performed By: #### H EMOGC ####[facility] (DEFAULT)[address] [facility] [place] [address] RBC Distribution 14.0 % Normal 10.9-14.3 [facility] Comment on above: Performed By: #### H [facility] ####[facility] (DEFAULT)[address] [place] [address] WBC (Bld) [#/Vol] 3.69 10*3/uL Low 3.73-10.10 [facility] Comment on above: Performed By: #### H [facility] ####[facility] (DEFAULT)[address] [place] [address] Erythrocyte distribution width (RBC) [Ratio] 14.0 % 10.9 - 14.3 % [facility] Hematocrit (Bld) [Volume fraction] 37.2 % Low 39.6 - 48.8 % [facility] Hemoglobin (Bld) [Mass/Vol] 12.0 g/dL Low 13.4 - 16.8 g/dL [facility] Interpretation and review of laboratory results Abnormal [facility] MCH (RBC) [Entitic mass] 27.9 pg 26.1 - 33.3 pg [facility] MCHC (RBC) [Mass/Vol] 32.3 g/dL 31.9 - 36.5 g/dL [facility] MCV (RBC) [Entitic vol] 86.5 fL 79.0 - 94.5 fL [facility] Platelet mean volume (Bld) [Entitic vol] 10.5 fL 8.7 - 12.3 fL [facility] Platelets (Bld) [#/Vol] 159 10*3/uL 146 - 337 K/uL [facility] RBC (Bld) [#/Vol] 4.30 10*6/uL Low [facility] WBC (Bld) [#/Vol] 3.69 10*3/uL Low 3.73 - 10. 10 K/uL [facility] CHEM 7 (LYTES,BUN,CREA,GLUC) on 01-17-2024 Anion gap [Moles/Vol] 13 mmol/L Normal 7-17 [facility] Comment on above: Performed By: #### C HM7, HFP, MGO ####[facility] (DEFAULT)[address] [place] [address] Chloride [Moles/Vol] 109 mmol/L High 98-108 [facility] Comment on above: Performed By: #### C HM7, HFP, MGO ####[facility] (DEFAULT)[address] [place] [address] CO2 [Moles/Vol] 21 mmol/L Normal 21-31 [facility] Comment on above: Performed By: #### C HM7, HFP, MGO ####[facility] (DEFAULT)[address] [place] [address] Creatinine [Mass/Vol] 1.04 mg/dL Normal 0.70-1.30 [facility] Comment on above: Performed By: #### C HM7, HFP, MGO ####[facility] (DEFAULT)[address] [place] [address] GFR/1.73 sq M.predicted among non-blacks MDRD (S/P/Bld) [Vol rate/Area] 86 mL/min/{1.73_m2} Normal >=60 [facility] Comment on above: Result Comment: Repo rted eGFR is based on the CKD-EPI 2020 equation using creatinine, age, and sex. Performed By: #### C HM7, HFP, MGO ####[facility] (DEFAULT)[address] [place] [address] Glucose [Mass/Vol] 82 mg/dL Normal 70-99 [facility] Comment on above: Performed By: #### C HM7, HFP, MGO ####[facility] (DEFAULT)[address] [place] [address] Osmolality [Osmolality] 292 mosm/kg Normal 278-305 [facility] Comment on above: Performed By: #### C HM7, HFP, MGO ####[facility] (DEFAULT)[address] [place] [address] Potassium [Moles/Vol] 4.4 mmol/L Normal 3.5-5.0 [facility] Comment on above: Performed By: #### C JASMYNE, TAVO, MGO ####[facility] (DEFAULT)[address] [place] [address] Sodium [Moles/Vol] 139 mmol/L Normal 135-145 [facility] Comment on above: Performed By: #### Cihnedu MEDLEY, TAVO, MGO ####[facility] (DEFAULT)[address] [facility] [address] Urea nitrogen [Mass/Vol] 17 mg/dL Normal 7-25 [facility] Comment on above: Performed By: #### Chinedu MEDLEY, HFP, MGO ####[facility] (DEFAULT)[address] [facility] [place] [address] Urea nitrogen/Creatinine [Mass ratio] 16 mg/mg Normal [facility] Comment on above: Performed By: #### Chinedu MEDLEY, HFP, MGO ####[facility] (DEFAULT)[address] [facility] [address] Anion gap [Moles/Vol] 13 mmol/L 7 - 17 mmol/L [facility] Chloride [Moles/Vol] 109 mmol/L High 98 - 10 8 mmol/L [facility] CO2 [Moles/Vol] 21 mmol/L 21 - 31 mmol/L [facility] Creatinine [Mass/Vol] 1.04 mg/dL 0.70 - 1.30 mg/dL [facility] eGFR, CKD-EPI, Male 86 - PINF [facility] Comment on above: Reported eGFR is bas ed on the CKD-EPI 2020 equation using creatinine, age, and sex. Glucose [Mass/Vol] 82 mg/dL 70 - 99 mg/dL [facility] Osmolality Calc [Osmolality] 292 [facility] Potassium [Moles/Vol] 4.4 mmol/L 3.5 - 5.0 mmol/L [facility] Sodium [Moles/Vol] 139 mmol/L 135 - 145 mmol/L [facility] Urea nitrogen [Mass/Vol] 17 mg/dL 7 - 25 mg/dL [facility] Urea nitrogen/Creatinine [Mass ratio] 16 mg/mg [facility] CT ABDOMEN/PELVIS WITHOUT CO NTRASTon 01-17-2024 CT ABDOMEN/PELVIS WITHOUT CONTRAST Normal [facility] CT Abdomen and Pelvis WO con traston [...] unremarkable. Kidneys: Severe atrophy of the bilateral [place] kidney is without hydronephrosis. Right lower quadrant [...] unremarkable. Kidneys: Severe atrophy of the bilateral [place] kidney is without hydronephrosis. Right lower quadrant [...] the middle lobe. Trace left pleural effusion. [facility] Radiology Study observation (narrative) [facility] HEPATIC FUNCTION PANELon Albumin [Mass/Vol] 3.5 g/dL Normal 3.5-5.0 [facility] Comment on above: Performed By: #### C TAVO MEDLEY MGO ####[facility] (DEFAULT)[address] [place] [address] ALP [Catalytic activity/Vol] 73 U/L Normal 32-126 [facility] Comment on above: Performed By: #### C HM7, HFP, MGO ####[facility] (DEFAULT)[address] [place] [address] ALT [Catalytic activity/Vol] 7 U/L Low 10-52 [facility] Comment on above: Performed By: #### C HM7, HFP, MGO ####[facility] (DEFAULT)[address] [place] [address] AST [Catalytic activity/Vol] 25 U/L Normal 10-39 [facility] Comment on above: Performed By: #### C HM7, HFP, MGO ####[facility] (DEFAULT)[address] [place] [address] Bilirubin [Mass/Vol] 1.8 mg/dL High <1.5 [facility] Comment on above: Performed By: #### C HM7, HFP, MGO ####[facility] (DEFAULT)[address] [place] [address] Bilirubin.indirect [Mass/Vol] 0.3 mg/dL High <0.3 [facility] Comment on above: Performed By: #### C HM7, HFP, MGO ####[facility] (DEFAULT)[address] [place] [address] Protein [Mass/Vol] 6.0 g/dL Low 6.4-8.3 [facility] Comment on above: Performed By: #### Chinedu HM7, HFP, MGO ####[facility] (DEFAULT)[address] [place] [address] Albumin [Mass/Vol] 3.5 g/dL 3.5 - 5.0 g/dL [facility] ALP [Catalytic activity/Vol] 73 U/L 32 - 126 U/L [facility] ALT [Catalytic activity/Vol] 7 U/L Low 10 - 52 U/L [facility] AST [Catalytic activity/Vol] 25 U/L 10 - 39 U/L [facility] Bilirubin [Mass/Vol] 1.8 mg/dL High NINF - 1.5 mg/dL [facility] Bilirubin.direct [Mass/Vol] 0.3 mg/dL High NINF - 0.3 mg/dL [facility] Protein [Mass/Vol] 6.0 g/dL Low 6.4 - 8.3 g/dL [facility] HISTOPLASMA AND BLASTOMYCES ANTIGEN, ENZYME IMMUNOASSAY, SERMon 01-17-2024 Histoplasma/Blastomy antonia Ag Result Not detected Normal Not Detected [facility] Comment on above: Result Comment: No a ntigen from Histoplasma or Blastomyces detected. Falsenegative results may occur depending on extent of disease,and/or site of infection. Repeat testing on a new specimenif clinically indicated. Performed By: #### H CORAL ####[facility] (DEFAULT)[address] [address] Histoplasma/Blastomy antonia Ag Value Not detected Normal [facility] Comment on above: Result Comment: ---- ADDITIONAL INFORMATION This test was developed and its performance characteristicsdetermined by [facility] in a manner consistent with CLIArequirements. This test has not been cleared or approved bythe U.S. Food and Drug Administration.Test Performed by:[address] [address]Naf Director: Rosendo Bose M.D. Ph.D.; CLIA# [id number] Performed By: #### H CORAL ####[facility] (DEFAULT)[address] [place] [address] MAGNESIUMon 01-17-2024 Magnesium [Mass/Vol] 1.7 mg/dL Normal 1.6-2.6 [facility] Comment on above: Performed By: #### C HM7, HFP, MGO ####[facility] (DEFAULT)[address] [place] [address] Interpretation and review of laboratory results Normal [facility] Magnesium [Mass/Vol] 1.7 mg/dL 1.6 - 2 .6 mg/dL [facility] No Panel Informationon 01-17 Interpretation and review of laboratory results Abnormal [facility] PT,INR,PTTon 01-17-2024 aPTT Coag (PPP) [Time] 29.9 s [facility] INR Coag (Bld) [Relative time] 1.1 {INR} 0.9 - 1.1 [facility] Interpretation and review of laboratory results Abnormal [facility] PT Coag (PPP) [Time] 14.5 s High [facility] aPTT Coag (Bld) [Time] 29.9 s Normal 24.0-34.3 [facility] Comment on above: Performed By: #### P TPTT ####[facility] (DEFAULT)[address] [place] [address] INR Coag (PPP) [Relative time] 1.1 {INR} Normal 0.9-1.1 [facility] Comment on above: Performed By: #### P TPTT ####[facility] (DEFAULT)[address] [place] [address] PT Coag (PPP) [Time] 14.5 s High 11.9-14.2 [facility] Comment on above: Performed By: #### P TPTT ####[facility] (DEFAULT)[address] [place] [address] B-TYPE NATRIURETIC PEPTIDE ( BRAIN)on 01-16-2024 Interpretation and review of laboratory results Abnormal [facility] Natriuretic peptide B (Bld) [Mass/Vol] 212 pg/mL High 0 - 100 pg/mL [facility] Natriuretic peptide B (Bld) [Mass/Vol] 212 pg/mL High 0-100 [facility] Comment on above: Performed By: #### B [employer] MAINFRAME DEVELOPER ####[facility] (DEFAULT)[address] [place] [address] CALCIUMon 01-16-2024 Calcium [Mass/Vol] 8.5 mg/dL Low 8.6-10.5 [facility] Comment on above: Performed By: #### C A, CHM7, IPB, MGO, HFP ####[facility] (DEFAULT)[address] [facility] [place] [address] Calcium [Mass/Vol] 8.5 mg/dL Low 8.6 - 10. 5 mg/dL [facility] DARYL AURIS SCREEN BY PCRo n 01-16-2024 Daryl auris Screen by PCR Not detected Normal Not Detected [facility] Comment on above: Order Comment: This test was performed using a real-time PCR assay. This test was developed, and its performance characteristics determined by [facility]. It has not been cleared or approved by the FDA. The laboratory is regulated under CLIA as qualified to perform high-complexity testing. This test is used for clinical purposes. It should not be regarded as investigational or for research. Performed By: #### C ANDIDA AURIS SCREEN BY PCR ####[facility] (DEFAULT)[address] [place] [address] CBC AND ELECTRONIC DIFFon Abs Baso Auto < Normal 0.00-0.09 [facility] Comment on above: Performed By: #### L AB980 ####[facility] (DEFAULT)[address] [place] [address] Basophils/100 WBC (Bld) 0.6 % Normal [facility] Comment on above: Performed By: #### L AB980 ####[facility] (DEFAULT)[address] [place] [address] DIFF STATUS Electronic Differential Normal [facility] Comment on above: Performed By: #### L [id number] ####[facility] (DEFAULT)[address] [place] [address] Eosinophils (Bld) [#/Vol] 0.09 10*3/uL Normal 0.00-0.48 [facility] Comment on above: Performed By: #### L AB980 ####[facility] (DEFAULT)[address] [place] [address], [place] [address] Eosinophils/100 WBC (Bld) 2.5 % Normal [facility] Comment on above: Performed By: #### L [id number] ####[facility] (DEFAULT)[address] [place] [address] Hematocrit (Bld) [Volume fraction] 37.4 % Low 39.6-48.8 [facility] Comment on above: Performed By: #### L [id number] ####[facility] (DEFAULT)[address] [place] [address], [place] [address] Hemoglobin (Bld) [Mass/Vol] 12.1 g/dL Low 13.4-16.8 [facility] Comment on above: Performed By: #### L AB980 ####[facility] (DEFAULT)[address] [place] [address], [place] [address] Immature Grans % 0.3 % Normal [facility] Comment on above: Performed By: #### L AB980 ####[facility] (DEFAULT)[address] [place] [address], [place] [address] Immature Grans Absolute < Normal <=0.07 [facility] Comment on above: Performed By: #### L AB980 ####[facility] (DEFAULT)[address] [place] [address] Lymphocytes (Bld) [#/Vol] 1.16 10*3/uL Normal 0.83-3.57 [facility] Comment on above: Performed By: #### L AB980 ####[facility] (DEFAULT)[address] [place] [address] Lymphocytes/100 WBC (Bld) 32.0 % Normal [facility] Comment on above: Performed By: #### L [id number] ####[facility] (DEFAULT)[address] [facility] [place] [address] MCV (RBC) [Entitic vol] 87.8 fL Normal 79.0-94.5 [facility] Comment on above: Performed By: #### L AB980 ####[facility] (DEFAULT)[address] [place] [address] Mean Cell Hgb 28.4 pg Normal 26.1-33.3 [facility] Comment on above: Performed By: #### L AB980 ####[facility] (DEFAULT)[address] [facility] [place] [address] Mean Cell Hgb Conc 32.4 g/dL Normal 31.9-36.5 [facility] Comment on above: Performed By: #### L [id number] ####[facility] (DEFAULT)[address] [facility] [address] Monocytes (Bld) [#/Vol] 0.43 10*3/uL Normal 0.24-0.93 [facility] Comment on above: Performed By: #### L AB980 ####[facility] (DEFAULT)[address] [facility] [place] [address] Monocytes/100 WBC (Bld) 11.9 % Normal [facility] Comment on above: Performed By: #### L [id number] ####[facility] (DEFAULT)[address] [facility] [place] [address] Nucleated RBC 0.0 /100 WBC Normal <=0.2 [facility] Comment on above: Performed By: #### L [id number] ####[facility] (DEFAULT)[address] [facility] [place] [address] Platelet mean volume (Bld) [Entitic vol] 10.1 fL Normal 8.7-12.3 [facility] Comment on above: Performed By: #### L [id number] ####[facility] (DEFAULT)[address] [facility] [place] [address] Platelets (Bld) [#/Vol] 155 10*3/uL Normal 146-337 [facility] Comment on above: Performed By: #### L [id number] ####[facility] (DEFAULT)[address] [facility] [place] [address] RBC (Bld) [#/Vol] 4.26 10*6/uL Low 4.38-5.83 [facility] Comment on above: Performed By: #### L [id number] ####[facility] (DEFAULT)[address] [facility] [place] [address] RBC Distribution 14.0 % Normal 10.9-14.3 [facility] Comment on above: Performed By: #### L [id number] ####[facility] (DEFAULT)[address] [facility] [place] [address] Segs + Bands Auto 52.7 % Normal [facility] Comment on above: Performed By: #### L [id number] ####[facility] (DEFAULT)[address] [facility] [place] [address] Segs + Bands,Absolute Auto 1.91 K/uL Normal 1.57-6.19 [facility] Comment on above: Performed By: #### L [id number] ####[facility] (DEFAULT)[address] [facility] [address] WBC (Bld) [#/Vol] 3.62 10*3/uL Low 3.73-10.10 [facility] Comment on above: Performed By: #### L [id number] ####[facility] (DEFAULT)[address] [facility] [address] Basophils (Bld) [#/Vol] K/uL 0.00 - 0.09 K/uL [facility] Basophils/100 WBC (Bld) 0.6 % [facility] Differential cell count method Nom (Bld) Electronic Differential [facility] Eosinophils (Bld) [#/Vol] 0.09 10*3/uL 0.00 - 0.48 K/uL [facility] Eosinophils/100 WBC (Bld) 2.5 % [facility] Erythrocyte distribution width (RBC) [Ratio] 14.0 % 10.9 - 14.3 % [facility] Hematocrit (Bld) [Volume fraction] 37.4 % Low 39.6 - 48.8 % [facility] Hemoglobin (Bld) [Mass/Vol] 12.1 g/dL Low 13.4 - 16.8 g/dL [facility] Immature granulocytes (Bld) [#/Vol] K/uL NINF - 0.07 K/uL [facility] Immature granulocytes/100 WBC (Bld) 0.3 % [facility] Interpretation and review of laboratory results Abnormal [facility] Lymphocytes (Bld) [#/Vol] 1.16 10*3/uL 0.83 - 3.57 K/uL [facility] Lymphocytes/100 WBC (Bld) 32.0 % [facility] MCH (RBC) [Entitic mass] 28.4 pg 26.1 - 33.3 pg [facility] MCHC (RBC) [Mass/Vol] 32.4 g/dL 31.9 - 36.5 g/dL [facility] MCV (RBC) [Entitic vol] 87.8 fL 79.0 - 94.5 fL [facility] Monocytes (Bld) [#/Vol] 0.43 10*3/uL 0.24 - 0.93 K/uL [facility] Monocytes/100 WBC (Bld) 11.9 % [facility] Neutrophils (Bld) [#/Vol] 1.91 10*3/uL 1.57 - 6.19 K/uL [facility] Nucleated RBC/100 WBC (Bld) [Ratio] 0.0 % [facility] Platelet mean volume (Bld) [Entitic vol] 10.1 fL 8.7 - 12.3 fL [facility] Platelets (Bld) [#/Vol] 155 10*3/uL 146 - 337 K/uL [facility] RBC (Bld) [#/Vol] 4.26 10*6/uL Low [facility] Segmented neutrophils/100 WBC (Bld) 52.7 % [facility] WBC (Bld) [#/Vol] 3.62 10*3/uL Low 3.73 - 10. 10 K/uL [facility] CHEM 7 (LYTES,BUN,CREA,GLUC) on 01-16-2024 Anion gap [Moles/Vol] 11 mmol/L Normal 7-17 [facility] Comment on above: Performed By: #### C A, CHM7, IPB, MGO, HFP ####[facility] (DEFAULT)[address] [facility] [place] [address] Chloride [Moles/Vol] 108 mmol/L Normal 98-108 [facility] Comment on above: Performed By: #### C A, CHM7, IPB, MGO, HFP ####[facility] (DEFAULT)[address] [facility] [place] [address] CO2 [Moles/Vol] 24 mmol/L Normal 21-31 [facility] Comment on above: Performed By: #### C A, CHM7, IPB, MGO, HFP ####[facility] (DEFAULT)[address] [facility] [place] [address] Creatinine [Mass/Vol] 1.04 mg/dL Normal 0.70-1.30 [facility] Comment on above: Performed By: #### C A, CHM7, IPB, MGO, HFP ####[facility] (DEFAULT)[address] [place] [address] GFR/1.73 sq M.predicted among non-blacks MDRD (S/P/Bld) [Vol rate/Area] 86 mL/min/{1.73_m2} Normal >=60 [facility] Comment on above: Result Comment: Repo rted eGFR is based on the CKD-EPI 2020 equation using creatinine, age, and sex. Performed By: #### C A, CHM7, IPB, MGO, HFP ####[facility] (DEFAULT)[address] [place] [address] Glucose [Mass/Vol] 95 mg/dL Normal 70-99 [facility] Comment on above: Performed By: #### C A, CHM7, IPB, MGO, HFP ####[facility] (DEFAULT)[address] [place] [address] Osmolality [Osmolality] 293 mosm/kg Normal 278-305 [facility] Comment on above: Performed By: #### C A, CHM7, IPB, MGO, HFP ####[facility] (DEFAULT)[address] [place] [address] Potassium [Moles/Vol] 4.0 mmol/L Normal 3.5-5.0 [facility] Comment on above: Performed By: #### C A, CHM7, IPB, MGO, HFP ####[facility] (DEFAULT)[address] [place] [address] Sodium [Moles/Vol] 139 mmol/L Normal 135-145 [facility] Comment on above: Performed By: #### C A, CHM7, IPB, MGO, HFP ####[facility] (DEFAULT)[address] [place] [address] Urea nitrogen [Mass/Vol] 19 mg/dL Normal 7-25 [facility] Comment on above: Performed By: #### C A, CHM7, IPB, MGO, HFP ####[facility] (DEFAULT)[address] [place] [address] Urea nitrogen/Creatinine [Mass ratio] 18 mg/mg Normal [facility] Comment on above: Performed By: #### C A, CHM7, IPB, MGO, HFP ####[facility] (DEFAULT)[address] [place] [address] Anion gap [Moles/Vol] 11 mmol/L 7 - 17 mmol/L [facility] Chloride [Moles/Vol] 108 mmol/L 98 - 10 8 mmol/L [facility] CO2 [Moles/Vol] 24 mmol/L 21 - 31 mmol/L [facility] Creatinine [Mass/Vol] 1.04 mg/dL 0.70 - 1.30 mg/dL [facility] eGFR, CKD-EPI, Male 86 - [facility] Comment on above: Reported eGFR is bas ed on the CKD-EPI 2020 equation using creatinine, age, and sex. Glucose [Mass/Vol] 95 mg/dL 70 - 99 mg/dL [facility] Osmolality Calc [Osmolality] 293 [facility] Potassium [Moles/Vol] 4.0 mmol/L 3.5 - 5.0 mmol/L [facility] Sodium [Moles/Vol] 139 mmol/L 135 - 145 mmol/L [facility] Urea nitrogen [Mass/Vol] 19 mg/dL 7 - 25 mg/dL [facility] Urea nitrogen/Creatinine [Mass ratio] 18 mg/mg [facility] D-DIMER,QUANTITATIVEon 01-16 D-Dimer, High Sensitivity 0.67 mcg/mL FEU High <0.50 [facility] Comment on above: Result Comment: The D-Dimer assay is intended for use in conjuction with a clinical pretest probability (PTP) assessment model to exclude pulmonary embolism (PE) and as an aid in the diagnosis of Deep Vein Thrombosis (DVT) in outpatients suspected of PE or DVT. For the assay in use at [facility] ([facility]), a cutoff of <0.50 mcg/mL has a Negative Predictive Value of 99.7% for exclusion of DVT in low and moderate PTP patients. Performed By: #### P TPTT, HSDDI ####[facility] (DEFAULT)[address] [place] [address] D-DIMER,QUANTITATIVEOrdered By: Shaji Kelly on 01-16-2024 Fibrin D-dimer FEU (PPP) [Mass/Vol] 0.67 High NINF [facility] Comment on above: The D-Dimer assay is intended for use in conjuction with a clinical pretest probability (PTP) assessment model to exclude pulmonary embolism (PE) and as an aid in the diagnosis of Deep Vein Thrombosis (DVT) in outpatients suspected of PE or DVT. For the assay in use at [facility] ([facility]), a cutoff of <0.50 mcg/mL has a Negative Predictive Value of 99.7% for exclusion of DVT in low and moderate PTP patients. Interpretation and review of laboratory results Abnormal [facility] HEPATIC FUNCTION PANELon Albumin [Mass/Vol] 3.7 g/dL Normal 3.5-5.0 [facility] Comment on above: Performed By: #### C Tray, CHM7, IPB, MGO, HFP ####[facility] (DEFAULT)[address] [place] [address] ALP [Catalytic activity/Vol] 70 U/L Normal 32-126 [facility] Comment on above: Performed By: #### C A, CHM7, IPB, MGO, HFP ####[facility] (DEFAULT)[address] [place] [address] ALT [Catalytic activity/Vol] 8 U/L Low 10-52 [facility] Comment on above: Performed By: #### C A, CHM7, IPB, MGO, HFP ####[facility] (DEFAULT)[address] [place] [address] AST [Catalytic activity/Vol] 21 U/L Normal 10-39 [facility] Comment on above: Performed By: #### C A, CHM7, IPB, MGO, HFP ####[facility] (DEFAULT)[address] [place] [address] Bilirubin [Mass/Vol] 1.9 mg/dL High <1.5 [facility] Comment on above: Performed By: #### C A, CHM7, IPB, MGO, HFP ####[facility] (DEFAULT)[address] [place] [address] Bilirubin.indirect [Mass/Vol] 0.4 mg/dL High <0.3 [facility] Comment on above: Performed By: #### Chinedu Feliz, CHM7, IPB, MGO, HFP ####[facility] (DEFAULT)[address] [facility] [place] [address] Protein [Mass/Vol] 6.1 g/dL Low 6.4-8.3 [facility] Comment on above: Performed By: #### Chinedu Feliz, CHM7, IPB, MGO, HFP ####[facility] (DEFAULT)[address] [facility] [place] [address] Albumin [Mass/Vol] 3.7 g/dL 3.5 - 5.0 g/dL [facility] ALP [Catalytic activity/Vol] 70 U/L 32 - 126 U/L [facility] ALT [Catalytic activity/Vol] 8 U/L Low 10 - 52 U/L [facility] AST [Catalytic activity/Vol] 21 U/L 10 - 39 U/L [facility] Bilirubin [Mass/Vol] 1.9 mg/dL High NINF - 1.5 mg/dL [facility] Bilirubin.direct [Mass/Vol] 0.4 mg/dL High NINF - 0.3 mg/dL [facility] Protein [Mass/Vol] 6.1 g/dL Low 6.4 - 8.3 g/dL [facility] MAGNESIUMon 01-16-2024 Magnesium [Mass/Vol] 1.7 mg/dL Normal 1.6-2.6 [facility] Comment on above: Performed By: #### Chinedu Feliz, CHM7, IPB, MGO, HFP ####[facility] (DEFAULT)[address] [facility] [place] [address] Magnesium [Mass/Vol] 1.7 mg/dL 1.6 - 2 .6 mg/dL [facility] No Panel Informationon 01-16 Interpretation and review of laboratory results Abnormal [facility] Interpretation and review of laboratory results Normal [facility] PHOSPHATE, INORGANICon 01-16 Phosphorous 4.1 mg/dL Normal 2.2-4.6 [facility] Comment on above: Performed By: #### C A, CHM7, IPB, MGO, HFP ####[facility] (DEFAULT)[address] [place] [address] Phosphate [Mass/Vol] 4.1 mg/dL 2.2 - 4 .6 mg/dL [facility] PT,INR,PTTon 01-16-2024 aPTT Coag (Bld) [Time] 29.6 s Normal 24.0-34.3 [facility] Comment on above: Performed By: #### P TPTT, HSDDI ####[facility] (DEFAULT)[address] [place] [address] INR Coag (PPP) [Relative time] 1.2 {INR} High 0.9-1.1 [facility] Comment on above: Performed By: #### P TPTT, HSDDI ####[facility] (DEFAULT)[address] [place] [address] PT Coag (PPP) [Time] 14.9 s High 11.9-14.2 [facility] Comment on above: Performed By: #### P TPTT, HSDDI ####[facility] (DEFAULT)[address] [place] [address] aPTT Coag (PPP) [Time] 29.6 s [facility] INR Coag (Bld) [Relative time] 1.2 {INR} High 0.9 - 1.1 [facility] Interpretation and review of laboratory results Abnormal [facility] PT Coag (PPP) [Time] 14.9 s High [facility] TACROLIMUS LEVEL, TROUGH (NM E DRUG LEVEL)Ordered By: Jimy Castillo on 01-16-2024 Interpretation and review of laboratory results Normal [facility] Tacrolimus (Bld) [Mass/Vol] 5.7 ng/mL Bone Marrow Transplant: 4.0-12.0, Therapeutic: 5.0-15.0 [facility] Method performed is a chemiluminescent microparticle immunoasssay on the [employer] i2000. The range is based on experience at [facility] and users should be aware that target concentrations vary widely depending on concomitant therapy, time post-transplant, and desired degree of immunosuppression. [facility] TACROLIMUS LEVEL, TROUGH (NM E DRUG LEVEL)on 01-16-2024 Tacrolimus, Trough 5.7 ng/mL Normal Bone Susana ow Transplant: 4.0-12.0, Therapeutic: 5.0-15.0 [facility] Comment on above: Order Comment: Pleas e draw at specified interval PRIOR to dose. Do not hold dose to wait for level. Specimens batched twice per day, (M-F) and once per day weekendsMethod performed is a chemiluminescent microparticle immunoasssay on the [employer] i2000.The range is based on experience at [facility] and users should be aware that target concentrations vary widely depending on concomitant therapy, time post-transplant, and desired degree of immunosuppression. Performed By: #### T ACRO ####[facility] (DEFAULT)[address] [place] [address] US ABDOMEN LIVER DOPPLERon 0 01-16-2024 US ABDOMEN LIVER DOPPLER Normal [facility] US.doppler Abdominal vessels on 01-16-2024 IMPRESSION: 1. [...] effusion. Trace right upper quadrant ascites. [facility] Radiology [facility]narrative[facility] Ordered By: Iona Duran on 01-16-2024 [facility] Work Phone: XR CHEST PA AND LATERAL 2 EWSon 01-16-2024 XR CHEST PA AND LATERAL 2 VIEWS Normal [facility] XR Chest PA and Lateralon IMPRESSION: Moderate [...] Normal IMPRESSION IMPRESSION: Moderate right [facility] eff[facility]. [facility] XR Chest PA and LateralOrder ed By: Daisha Patterson on 01-16-2024 [facility] Work Phone: ALL CBC WITH AUTO DIFFon BASOPHILS ABSOLUTE AUTO 0.0 [facility] Basophils/100 WBC (Bld) 0.5 % 0.2 - 2.0 % [facility] Eosinophils/100 WBC (Bld) 2.8 % 0.9 - 7.0 % [facility] Erythrocyte distribution width (RBC) [Ratio] 13.8 % 11.0 - 15.0 % [facility] Hematocrit (Bld) [Volume fraction] 43.7 % 42.0 - 54.0 % [facility] Hemoglobin (Bld) [Mass/Vol] 14.0 g/dL 14.0 - 18.0 g/dL [facility] IMMATURE GRANULOCYTES ABS AUTO 0.01 [facility] Immature granulocytes/100 WBC (Bld) 0.3 % 0.0 - 0.5 % [facility] LYMPHOCYTES ABSOLUTE AUTO 1.5 [facility] Lymphocytes/100 WBC (Bld) 37.5 % 20.5 - 60.0 % [facility] MCH (RBC) [Entitic mass] 28.4 pg 25.9 - 34.0 pg [facility] MCHC (RBC) [Mass/Vol] 32.0 g/dL 29.9 - 35.2 g/dL [facility] MCV (RBC) [Entitic vol] 88.6 fL 80.0 - 94.0 fL [facility] MONOCYTES ABSOLUTE AUTO 0.5 [facility] Monocytes/100 WBC (Bld) 11.9 % 1.7 - 12.0 % [facility] NEUTROPHILS ABSOLUTE AUTO 1.9 [facility] Neutrophils/100 WBC (Bld) 47.0 % 43.0 - 75.0 % [facility] Platelet mean volume (Bld) [Entitic vol] 10.3 fL 9.5 - 13.5 fL [facility] TBH EO # 0.1 [facility] TBH PLT 180 [facility] TB RBC 4.93 [facility] TB WBC 4.0 [facility] ALL CBC WITH AUTO DIFFon BASOPHILS ABSOLUTE AUTO 0.0 [facility] Basophils/100 WBC (Bld) 0.5 % 0.2 - 2.0 % [facility] Eosinophils/100 WBC (Bld) 2.6 % 0.9 - 7.0 % [facility] Erythrocyte distribution width (RBC) [Ratio] 13.5 % 11.0 - 15.0 % [facility] Hematocrit (Bld) [Volume fraction] 43.8 % 42.0 - 54.0 % [facility] Hemoglobin (Bld) [Mass/Vol] 14.0 g/dL 14.0 - 18.0 g/dL [facility] IMMATURE GRANULOCYTES ABS AUTO 0.00 [facility] Immature granulocytes/100 WBC (Bld) 0.0 % 0.0 - 0.5 % [facility] Interpretation and review of laboratory results Abnormal [facility] LYMPHOCYTES ABSOLUTE AUTO 1.8 [facility] Lymphocytes/100 WBC (Bld) 45.2 % 20.5 - 60.0 % [facility] MCH (RBC) [Entitic mass] 27.9 pg 25.9 - 34.0 pg [facility] MCHC (RBC) [Mass/Vol] 32.0 g/dL 29.9 - 35.2 g/dL [facility] MCV (RBC) [Entitic vol] 87.4 fL 80.0 - 94.0 fL [facility] MONOCYTES ABSOLUTE AUTO 0.4 [facility] Monocytes/100 WBC (Bld) 9.6 % 1.7 - 12.0 % [facility] NEUTROPHILS ABSOLUTE AUTO 1.6 [facility] Neutrophils/100 WBC (Bld) 42.1 % Low 43.0 - 75.0 % [facility] Platelet mean volume (Bld) [Entitic vol] 9.8 fL 9.5 - 13.5 fL [facility] TBH EO # 0.1 [facility] TB PLT 180 [facility] RBC 5.01 [facility] WBC 3.9 Low [facility] CHEM 7 (LYTES,BUN,CREA,GLUC) on 09-11-2023 Anion gap [Moles/Vol] 13 mmol/L Normal 7-17 [facility] Comment on above: Performed By: #### M NATHANIEL BLOOM ####[facility] (DEFAULT)[address] [place] [address] Chloride [Moles/Vol] 111 mmol/L High 98-108 [facility] Comment on above: Performed By: #### NATHANIEL RAMÍREZ ####[facility] (DEFAULT)[address] [facility] [place] [address] CO2 [Moles/Vol] 20 mmol/L Low 21-31 [facility] Comment on above: Performed By: #### NATHANIEL RAMÍREZ ####[facility] (DEFAULT)[address] [facility] [address] Creatinine [Mass/Vol] 1.13 mg/dL Normal 0.70-1.30 [facility] Comment on above: Performed By: #### NATHANIEL RAMÍREZ ####[facility] [facility] (DEFAULT)[address] [place] [address] GFR/1.73 sq M.predicted among non-blacks MDRD (S/P/Bld) [Vol rate/Area] 78 mL/min/{1.73_m2} Normal >=60 [facility] Comment on above: Result Comment: Repo rted eGFR is based on the CKD-EPI 2020 equation using creatinine, age, and sex. Performed By: #### NATHANIEL RAMÍREZ ####[facility] (DEFAULT)[address] [facility] [place] [address] Glucose [Mass/Vol] 109 mg/dL High 70-99 [facility] Comment on above: Performed By: #### NATHANIEL RAMÍREZ ####[facility] (DEFAULT)[address] [place] [address] [place] [address] Osmolality [Osmolality] 295 mosm/kg Normal 278-305 [facility] Comment on above: Performed By: #### NATHANIEL RAMÍREZ ####[facility] (DEFAULT)[address] [facility] [place] [address] Potassium [Moles/Vol] 4.3 mmol/L Normal 3.5-5.0 [facility] Comment on above: Performed By: #### NATHANIEL RAMÍREZ ####[facility] (DEFAULT)[address] [facility] [place] [address] Sodium [Moles/Vol] 140 mmol/L Normal 135-145 [facility] Comment on above: Performed By: #### M HELEN BLOOMM7 ####[facility] (DEFAULT)[address] [facility] [place] [address] Urea nitrogen [Mass/Vol] 16 mg/dL Normal 7-25 [facility] Comment on above: Performed By: #### Rod BLOOM CHM7 ####[facility] (DEFAULT)[address] [facility] [place] [address] Urea nitrogen/Creatinine [Mass ratio] 14 mg/mg Normal [facility] Comment on above: Performed By: #### Rod BLOOM CHM7 ####[facility] (DEFAULT)[address] [facility] [place] [address] Anion gap [Moles/Vol] 13 mmol/L 7 - 17 mmol/L [facility] Chloride [Moles/Vol] 111 mmol/L High 98 - 10 8 mmol/L [facility] CO2 [Moles/Vol] 20 mmol/L Low 21 - 31 mmol/L [facility] Creatinine [Mass/Vol] 1.13 mg/dL 0.70 - 1.30 mg/dL [facility] eGFR, CKD-EPI, Male 78 - PINF [facility] Glucose [Mass/Vol] 109 mg/dL High 70 - 99 mg/dL [facility] Interpretation and review of laboratory results Abnormal [facility] Osmolality Calc [Osmolality] 295 [facility] Potassium [Moles/Vol] 4.3 mmol/L 3.5 - 5.0 mmol/L [facility] Sodium [Moles/Vol] 140 mmol/L 135 - 145 mmol/L [facility] Urea nitrogen [Mass/Vol] 16 mg/dL 7 - 25 mg/dL [facility] Urea nitrogen/Creatinine [Mass ratio] 14 [facility]-11-2023 Glucose [Mass/Vol] 108 mg/dL High 70 - 99 mg/dL [facility] Interpretation and review of laboratory results Abnormal [facility] POC Sample Type CAPBL [facility] Legionella sp identified Org specific cx Nom (Unsp spec)on 09-11-2023 Bacteria identified Cx Nom (Unsp spec) NO GROWTH DAY 7 OF 7 [facility] MAGNESIUMon 09-11-2023 Magnesium [Mass/Vol] 1.6 mg/dL Normal 1.6-2.6 [facility] Comment on above: Performed By: #### M TJ BLOOM7 ####[facility] (DEFAULT)[address] [place] [address] Interpretation and review of laboratory results Normal [facility] Magnesium [Mass/Vol] 1.6 mg/dL 1.6 - 2 .6 mg/dL [facility] No Panel Informationon 09-11 [facility] TACROLIMUS LEVEL, TROUGH (NM E DRUG LEVEL)on 09-11-2023 Interpretation and review of laboratory results Normal [facility] Tacrolimus (Bld) [Mass/Vol] 11.5 ng/mL [facility] Tacrolimus, Trough 11.5 ng/mL Normal [facility] Susana ow Transplant: 4.0-12.0, Therapeutic: 5.0-15.0 [facility] Comment on above: Order Comment: Pleas e draw at specified interval PRIOR to dose. Do not hold dose to wait for level. Specimens batched twice per day, (M-F) and once per day weekendsMethod performed is a chemiluminescent microparticle immunoasssay on the [employer] Salt Washer i2000.The range is based on experience at [facility] and users should be aware that target concentrations vary widely depending on concomitant therapy, time post-transplant, and desired degree of immunosuppression. Performed By: #### T ACRO ####[facility] (DEFAULT)[address] [place] [address] CBC,PLATELETSon 09-10-2023 Hematocrit (Bld) [Volume fraction] 40.0 % Normal 39.6-48.8 [facility] Comment on above: Performed By: #### H EMOGC ####[facility] (DEFAULT)[address] [facility] [place] [address] Hemoglobin (Bld) [Mass/Vol] 12.7 g/dL Low 13.4-16.8 [facility] Comment on above: Performed By: #### H EMOGC ####[facility] (DEFAULT)[address] [facility] [place] [address] MCV (RBC) [Entitic vol] 86.0 fL Normal 79.0-94.5 [facility] Comment on above: Performed By: #### H EMOGC ####[facility] (DEFAULT)[address] [facility] [place] [address] Mean Cell Hgb 27.3 pg Normal 26.1-33.3 [facility] Comment on above: Performed By: #### H EMOGC ####[facility] (DEFAULT)[address] [facility] [place] [address] Mean Cell Hgb Conc 31.8 g/dL Low 31.9-36.5 [facility] Comment on above: Performed By: #### H EMOGC ####[facility] (DEFAULT)[address] [facility] [place] [address] Platelet mean volume (Bld) [Entitic vol] 9.5 fL Normal 8.7-12.3 [facility] Comment on above: Performed By: #### H EMOGC ####[facility] (DEFAULT)[address] [facility] [place] [address] Platelets (Bld) [#/Vol] 225 10*3/uL Normal 146-337 [facility] Comment on above: Performed By: #### H EMOGC ####[facility] (DEFAULT)[address] [place] [address] RBC (Bld) [#/Vol] 4.65 10*6/uL Normal 4.38-5.83 [facility] Comment on above: Performed By: #### [facility] ####[facility] (DEFAULT)[address] [place] [address] RBC Distribution 13.9 % Normal 10.9-14.3 [facility] Comment on above: Performed By: #### [facility] ####[facility] (DEFAULT)[address] [place] [address] WBC (Bld) [#/Vol] 6.52 10*3/uL Normal 3.73-10.10 [facility] Comment on above: Performed By: #### [facility] ####[facility] (DEFAULT)[address] [place] [address] Erythrocyte distribution width (RBC) [Ratio] 13.9 % 10.9 - 14.3 % [facility] Hematocrit (Bld) [Volume fraction] 40.0 % 39.6 - 48.8 % [facility] Hemoglobin (Bld) [Mass/Vol] 12.7 g/dL Low 13.4 - 16.8 g/dL [facility] Interpretation and review of laboratory results Abnormal [facility] MCH (RBC) [Entitic mass] 27.3 pg 26.1 - 33.3 pg [facility] MCHC (RBC) [Mass/Vol] 31.8 g/dL Low 31.9 - 36.5 g/dL [facility] MCV (RBC) [Entitic vol] 86.0 fL 79.0 - 94.5 fL [facility] Platelet mean volume (Bld) [Entitic vol] 9.5 fL 8.7 - 12.3 fL [facility] Platelets (Bld) [#/Vol] 225 10*3/uL 146 - 337 K/uL [facility] RBC (Bld) [#/Vol] 4.65 10*6/uL [facility] WBC (Bld) [#/Vol] 6.52 10*3/uL 3.73 - 10. 10 K/uL [facility] CHEM 7 (LYTES,BUN,CREA,GLUC) on 09-10-2023 Anion gap [Moles/Vol] 13 mmol/L Normal 7-17 [facility] Comment on above: Performed By: #### NATHANIEL RAMÍREZ, HFP ####[facility] (DEFAULT)[address] [place] [address] Chloride [Moles/Vol] 111 mmol/L High 98-108 [facility] Comment on above: Performed By: #### NATHANIEL RAMÍREZ, HFP ####[facility] (DEFAULT)[address] [place] [address] CO2 [Moles/Vol] 20 mmol/L Low 21-31 [facility] Comment on above: Performed By: #### NATHANIEL RAMÍREZ, HFP ####[facility] (DEFAULT)[address] [place] [address] Creatinine [Mass/Vol] 1.27 mg/dL Normal 0.70-1.30 [facility] Comment on above: Performed By: #### NATHANIEL RAMÍREZ, HFP ####[facility] (DEFAULT)[address] [place] [address] GFR/1.73 sq M.predicted among non-blacks MDRD (S/P/Bld) [Vol rate/Area] 68 mL/min/{1.73_m2} Normal >=60 [facility] Comment on above: Result Comment: Repo rted eGFR is based on the CKD-EPI 2020 equation using creatinine, age, and sex. Performed By: #### NATHANIEL RAMÍREZ, HFP ####[facility] (DEFAULT)[address] [place] [address] Glucose [Mass/Vol] 100 mg/dL High 70-99 [facility] Comment on above: Performed By: #### NATHANIEL RAMÍREZ, HFP ####[facility] (DEFAULT)[address] [place] [address] Osmolality [Osmolality] 293 mosm/kg Normal 278-305 [facility] Comment on above: Performed By: #### NATHANIEL RAMÍREZ, HFP ####[facility] (DEFAULT)[address] [place] [address] Potassium [Moles/Vol] 4.4 mmol/L Normal 3.5-5.0 [facility] Comment on above: Performed By: #### NATHANIEL RAMÍREZ, HFP ####[facility] (DEFAULT)[address] [place] [address] Sodium [Moles/Vol] 140 mmol/L Normal 135-145 [facility] Comment on above: Performed By: #### NATHANIEL RAMÍREZ, HFP ####[facility] (DEFAULT)[address] [place] [address] Urea nitrogen [Mass/Vol] 12 mg/dL Normal 7-25 [facility] Comment on above: Performed By: #### NATHANIEL RAMÍREZ, HFP ####[facility] (DEFAULT)[address] [place] [address] Urea nitrogen/Creatinine [Mass ratio] 9 mg/mg Normal [facility] Comment on above: Performed By: #### NATHANIEL RAMÍREZ, HFP ####[facility] (DEFAULT)[address] [place] [address] Anion gap [Moles/Vol] 13 mmol/L 7 - 17 mmol/L [facility] Chloride [Moles/Vol] 111 mmol/L High 98 - 10 8 mmol/L [facility] CO2 [Moles/Vol] 20 mmol/L Low 21 - 31 mmol/L [facility] Creatinine [Mass/Vol] 1.27 mg/dL 0.70 - 1.30 mg/dL [facility] eGFR, CKD-EPI, Male 69 - PINF [facility] Glucose [Mass/Vol] 100 mg/dL High 70 - 99 mg/dL [facility] Osmolality Calc [Osmolality] 293 [facility] Potassium [Moles/Vol] 4.4 mmol/L 3.5 - 5.0 mmol/L [facility] Sodium [Moles/Vol] 140 mmol/L 135 - 145 mmol/L [facility] Urea nitrogen [Mass/Vol] 12 mg/dL 7 - 25 mg/dL [facility] Urea nitrogen/Creatinine [Mass ratio] 9 mg/mg [facility] HEPATIC FUNCTION PANELon Albumin [Mass/Vol] 3.3 g/dL Low 3.5-5.0 [facility] Comment on above: Performed By: #### M MERLE CHM7, HFP ####[facility] (DEFAULT)[address] [facility] [place] [address] ALP [Catalytic activity/Vol] 143 U/L High 32-126 [facility] Comment on above: Performed By: #### M MERLE CHM7, HFP ####[facility] (DEFAULT)[address] [facility] [address] ALT [Catalytic activity/Vol] 28 U/L Normal 10-52 [facility] Comment on above: Performed By: #### M MERLE CHM7, HFP ####[facility] (DEFAULT)[address] [facility] [place] [address] AST [Catalytic activity/Vol] 29 U/L Normal 10-39 [facility] Comment on above: Performed By: #### M MERLE CHM7, HFP ####[facility] (DEFAULT)[address] [facility] [place] [address] Bilirubin [Mass/Vol] 0.9 mg/dL Normal <1.5 [facility] Comment on above: Performed By: #### M GO CHM7, HFP ####[facility] (DEFAULT)[address] [place] [address] Bilirubin.indirect [Mass/Vol] 0.2 mg/dL Normal <0.3 [facility] Comment on above: Performed By: #### NATHANIEL RAMÍREZ, HFP ####[facility] (DEFAULT)[address] [place] [address] Protein [Mass/Vol] 6.8 g/dL Normal 6.4-8.3 [facility] Comment on above: Performed By: #### M NATHANIEL BLOOM, HFP ####[facility] (DEFAULT)[address] [place] [address] Albumin [Mass/Vol] 3.3 g/dL Low 3.5 - 5.0 g/dL [facility] ALP [Catalytic activity/Vol] 143 U/L High 32 - 126 U/L [facility] ALT [Catalytic activity/Vol] 28 U/L 10 - 52 U/L [facility] AST [Catalytic activity/Vol] 29 U/L 10 - 39 U/L [facility] Bilirubin [Mass/Vol] 0.9 mg/dL [facility] mg/dL [facility] Bilirubin.direct [Mass/Vol] 0.2 mg/dL [facility] - 0.3 mg/dL [facility] Protein [Mass/Vol] 6.8 g/dL 6.4 - 8.3 g/dL [facility] MAGNESIUMon 09-10-2023 Magnesium [Mass/Vol] 1.9 mg/dL Normal 1.6-2.6 [facility] Comment on above: Performed By: #### NATHANIEL RAMÍREZ, HFP ####[facility] (DEFAULT)[address] [place] [address] Interpretation and review of laboratory results Normal [facility] Magnesium [Mass/Vol] 1.9 mg/dL 1.6 - 2 .6 mg/dL [facility] No Panel Informationon 09-10 Interpretation and review of laboratory results Abnormal [facility] TACROLIMUS LEVEL, TROUGH (NM E DRUG LEVEL)Ordered By: Jimy Castillo on 09-10-2023 Interpretation and review of laboratory results Normal [facility] Tacrolimus (Bld) [Mass/Vol] 11.8 ng/mL [facility] TACROLIMUS LEVEL, TROUGH (NM E DRUG LEVEL)on 09-10-2023 Tacrolimus, Trough 11.8 ng/mL Normal [facility] ow Transplant: 4.0-12.0, Therapeutic: 5.0-15.0 [facility] Comment on above: Order Comment: Pleas e draw at specified interval PRIOR to dose. Do not hold dose to wait for level. Specimens batched twice per day, (M-) and once per day weekendsMethod performed is a chemiluminescent microparticle immunoasssay on the [employer] Salt Washer i2000.The range is based on experience at [facility] and users should be aware that target concentrations vary widely depending on concomitant therapy, time post-transplant, and desired degree of immunosuppression. Performed By: #### T ACRO ####[facility] (DEFAULT)[address] [place] [address] CHEM 7 (LYTES,BUN,CREA,GLUC) on 09-09-2023 Anion gap [Moles/Vol] 14 mmol/L Normal 7-17 [facility] Comment on above: Performed By: #### JO ANN RAMÍREZ, CHM7 ####[facility] (DEFAULT)[address] [place] [address] Chloride [Moles/Vol] 113 mmol/L High 98-108 [facility] Comment on above: Performed By: #### CASTRO RAMÍREZB, CHM7 ####[facility] (DEFAULT)[address] [place] [address] CO2 [Moles/Vol] 18 mmol/L Low 21-31 [facility] Comment on above: Performed By: #### M MERLE IPB, CHM7 ####[facility] (DEFAULT)[address] [place] [address] Creatinine [Mass/Vol] 1.03 mg/dL Normal 0.70-1.30 [facility] Comment on above: Performed By: #### JO ANN RAMÍREZ CHM7 ####[facility] (DEFAULT)[address] [place] [address] GFR/1.73 sq M.predicted among non-blacks MDRD (S/P/Bld) [Vol rate/Area] 87 mL/min/{1.73_m2} Normal >=60 [facility] Comment on above: Result Comment: Repo rted eGFR is based on the CKD-EPI 2020 equation using creatinine, age, and sex. Performed By: #### JO ANN RAMÍREZ CHM7 ####[facility] (DEFAULT)[address] [facility] [place] [address] Glucose [Mass/Vol] 106 mg/dL High 70-99 [facility] Comment on above: Performed By: #### JO ANN RAMÍREZ CHM7 ####[facility] (DEFAULT)[address] [facility] [place] [address] Osmolality [Osmolality] 294 mosm/kg Normal 278-305 [facility] Comment on above: Performed By: #### JO ANN RAMÍREZ CHRod7 ####[facility] (DEFAULT)[address] [facility] [place] [address] Potassium [Moles/Vol] 4.0 mmol/L Normal 3.5-5.0 [facility] Comment on above: Performed By: #### JO ANN RAMÍREZ CHRod7 ####[facility] (DEFAULT)[address] [facility] [place] [address] Sodium [Moles/Vol] 141 mmol/L Normal 135-145 [facility] Comment on above: Performed By: #### JO ANN RAMÍREZ CHM7 ####[facility] (DEFAULT)[address] [facility] [place] [address] Urea nitrogen [Mass/Vol] 10 mg/dL Normal 7-25 [facility] Comment on above: Performed By: #### JO ANN RAMÍREZ CHM7 ####[facility] (DEFAULT)[address] [facility] [address] Urea nitrogen/Creatinine [Mass ratio] 10 mg/mg Normal [facility] Comment on above: Performed By: #### JO ANN RAMÍREZ CHM7 ####[facility] (DEFAULT)[address] [place] [address] Anion gap [Moles/Vol] 14 mmol/L 7 - 17 mmol/L [facility] Chloride [Moles/Vol] 113 mmol/L High 98 - 10 8 mmol/L [facility] CO2 [Moles/Vol] 18 mmol/L Low 21 - 31 mmol/L [facility] Creatinine [Mass/Vol] 1.03 mg/dL 0.70 - 1.30 mg/dL [facility] eGFR, CKD-EPI, Male 87 - PINF [facility] Glucose [Mass/Vol] 106 mg/dL High 70 - 99 mg/dL [facility] Interpretation and review of laboratory results Abnormal [facility] Osmolality Calc [Osmolality] 294 [facility] Potassium [Moles/Vol] 4.0 mmol/L 3.5 - 5.0 mmol/L [facility] Sodium [Moles/Vol] 141 mmol/L 135 - 145 mmol/L [facility] Urea nitrogen [Mass/Vol] 10 mg/dL 7 - 25 mg/dL [facility] Urea nitrogen/Creatinine [Mass ratio] 10 mg/mg [facility] MAGNESIUMon 09-09-2023 Magnesium [Mass/Vol] 1.6 mg/dL Normal 1.6-2.6 [facility] Comment on above: Performed By: #### JO ANN RAMÍREZ CHM7 ####[facility] (DEFAULT)[address] [place] [address] Magnesium [Mass/Vol] 1.6 mg/dL 1.6 - 2 .6 mg/dL [facility] No Panel Informationon 09-09 Interpretation and review of laboratory results Normal [facility] PHOSPHATE, INORGANICon 09-09 Phosphorous 3.8 mg/dL Normal 2.2-4.6 [facility] Comment on above: Performed By: #### M MERLE, IPB, [facility] ####[facility] (DEFAULT)[address] [place] [address] Phosphate [Mass/Vol] 3.8 mg/dL 2.2 - 4 .6 mg/dL [facility] TACROLIMUS LEVEL, TROUGH (NM E DRUG LEVEL)on 09-09-2023 Interpretation and review of laboratory results Normal [facility] Tacrolimus (Bld) [Mass/Vol] 9.2 ng/mL [facility] Tacrolimus, Trough 9.2 ng/mL Normal Bone Susana ow Transplant: 4.0-12.0, Therapeutic: 5.0-15.0 [facility] Comment on above: Order Comment: Pleas e draw at specified interval PRIOR to dose. Do not hold dose to wait for level. Specimens batched twice per day, (M-) and once per day weekendsMethod performed is a chemiluminescent microparticle immunoasssay on the [employer] i2000.The range is based on experience at [facility] and users should be aware that target concentrations vary widely depending on concomitant therapy, time post-transplant, and desired degree of immunosuppression. Performed By: #### T ACRO ####[facility] (DEFAULT)[address] [place] [address] CBC,PLATELETSon 09-08-2023 Hematocrit (Bld) [Volume fraction] 36.1 % Low 39.6-48.8 [facility] Comment on above: Performed By: #### [facility] ####[facility] (DEFAULT)[address] [facility] [address] Hemoglobin (Bld) [Mass/Vol] 11.6 g/dL Low 13.4-16.8 [facility] Comment on above: Performed By: #### H EMOGC ####[facility] (DEFAULT)[address] [place] [address] MCV (RBC) [Entitic vol] 85.1 fL Normal 79.0-94.5 [facility] Comment on above: Performed By: #### H EMOGC ####[facility] (DEFAULT)[address] [place] [address] Mean Cell Hgb 27.4 pg Normal 26.1-33.3 [facility] Comment on above: Performed By: #### H EMOGC ####[facility] (DEFAULT)[address] [facility] [place] [address] Mean Cell Hgb Conc 32.1 g/dL Normal 31.9-36.5 [facility] Comment on above: Performed By: #### H EMOGC ####[facility] (DEFAULT)[address] [facility] [place] [address] Platelet mean volume (Bld) [Entitic vol] 9.5 fL Normal 8.7-12.3 [facility] Comment on above: Performed By: #### H EMOGC ####[facility] (DEFAULT)[address] [place] [address] Platelets (Bld) [#/Vol] 182 10*3/uL Normal 146-337 [facility] Comment on above: Performed By: #### H EMOGC ####[facility] (DEFAULT)[address] [place] [address] RBC (Bld) [#/Vol] 4.24 10*6/uL Low 4.38-5.83 [facility] Comment on above: Performed By: #### H EMOGC ####[facility] (DEFAULT)[address] [place] [address] RBC Distribution 13.6 % Normal 10.9-14.3 [facility] Comment on above: Performed By: #### [facility] ####[facility] (DEFAULT)[address] [place] [address] WBC (Bld) [#/Vol] 4.59 10*3/uL Normal 3.73-10.10 [facility] Comment on above: Performed By: #### H [facility] ####[facility] (DEFAULT)[address] [place] [address] Erythrocyte distribution width (RBC) [Ratio] 13.6 % 10.9 - 14.3 % [facility] Hematocrit (Bld) [Volume fraction] 36.1 % Low 39.6 - 48.8 % [facility] Hemoglobin (Bld) [Mass/Vol] 11.6 g/dL Low 13.4 - 16.8 g/dL [facility] Interpretation and review of laboratory results Abnormal [facility] MCH (RBC) [Entitic mass] 27.4 pg 26.1 - 33.3 pg [facility] MCHC (RBC) [Mass/Vol] 32.1 g/dL 31.9 - 36.5 g/dL [facility] MCV (RBC) [Entitic vol] 85.1 fL 79.0 - 94.5 fL [facility] Platelet mean volume (Bld) [Entitic vol] 9.5 fL 8.7 - 12.3 fL [facility] Platelets (Bld) [#/Vol] 182 10*3/uL 146 - 337 K/uL [facility] RBC (Bld) [#/Vol] 4.24 10*6/uL Low [facility] WBC (Bld) [#/Vol] 4.59 10*3/uL 3.73 - 10. 10 K/uL [facility] CHEM 7 (LYTES,BUN,CREA,GLUC) on 09-08-2023 Anion gap [Moles/Vol] 12 mmol/L Normal 7-17 [facility] Comment on above: Performed By: #### M GO, IPB, HFP, CHM7 ####[facility] (DEFAULT)[address] [facility] [place] [address] Chloride [Moles/Vol] 113 mmol/L High 98-108 [facility] Comment on above: Performed By: #### M GO, IPB, HFP, CHM7 ####[facility] (DEFAULT)[address] [place] [address] CO2 [Moles/Vol] 21 mmol/L Normal 21-31 [facility] Comment on above: Performed By: #### M GO, IPB, HFP, CHM7 ####[facility] (DEFAULT)[address] [facility] [address] Creatinine [Mass/Vol] 1.14 mg/dL Normal 0.70-1.30 [facility] Comment on above: Performed By: #### M GO, IPB, HFP, CHM7 ####[facility] (DEFAULT)[address] [place] [address] GFR/1.73 sq M.predicted among non-blacks MDRD (S/P/Bld) [Vol rate/Area] 77 mL/min/{1.73_m2} Normal >=60 [facility] Comment on above: Result Comment: Repo rted eGFR is based on the CKD-EPI 2020 equation using creatinine, age, and sex. Performed By: #### M GO, IPB, HFP, CHM7 ####[facility] (DEFAULT)[address] [facility] [address] Glucose [Mass/Vol] 107 mg/dL High 70-99 [facility] Comment on above: Performed By: #### M GO, IPB, HFP, CHM7 ####[facility] (DEFAULT)[address] [facility] [place] [address] Osmolality [Osmolality] 296 mosm/kg Normal 278-305 [facility] Comment on above: Performed By: #### M GO, IPB, HFP, CHM7 ####[facility] (DEFAULT)[address] [place] [address] Potassium [Moles/Vol] 3.9 mmol/L Normal 3.5-5.0 [facility] Comment on above: Performed By: #### M GO, IPB, HFP, CHM7 ####[facility] (DEFAULT)[address] [place] [address] Sodium [Moles/Vol] 142 mmol/L Normal 135-145 [facility] Comment on above: Performed By: #### M GO, IPB, HFP, CHM7 ####[facility] (DEFAULT)[address] [facility] [place] [address] Urea nitrogen [Mass/Vol] 11 mg/dL Normal 7-25 [facility] Comment on above: Performed By: #### M GO, IPB, HFP, CHM7 ####[facility] (DEFAULT)[address] [facility] [place] [address] Urea nitrogen/Creatinine [Mass ratio] 10 mg/mg Normal [facility] Comment on above: Performed By: #### M GO, IPB, HFP, CHM7 ####[facility] (DEFAULT)[address] [facility] [place] [address] Anion gap [Moles/Vol] 12 mmol/L 7 - 17 mmol/L [facility] Chloride [Moles/Vol] 113 mmol/L High 98 - 10 8 mmol/L [facility] CO2 [Moles/Vol] 21 mmol/L 21 - 31 mmol/L [facility] Creatinine [Mass/Vol] 1.14 mg/dL 0.70 - 1.30 mg/dL [facility], [facility]-E[facility], Male 77 - [facility]F [facility] Glucose [Mass/Vol] 107 mg/dL High 70 - 99 mg/dL [facility] Osmolality Calc [Osmolality] 296 [facility] Potassium [Moles/Vol] 3.9 mmol/L 3.5 - 5.0 mmol/L [facility] Sodium [Moles/Vol] 142 mmol/L 135 - 145 mmol/L [facility] Urea nitrogen [Mass/Vol] 11 mg/dL 7 - 25 mg/dL [facility] Urea nitrogen/Creatinine [Mass ratio] 10 mg/mg [facility] HEPATIC FUNCTION PANELon Albumin [Mass/Vol] 2.9 g/dL Low 3.5-5.0 [facility] Comment on above: Performed By: #### M GO, IPB, HFP, CHM7 ####[facility] (DEFAULT)[address] [place] [address] ALP [Catalytic activity/Vol] 133 U/L High 32-126 [facility] Comment on above: Performed By: #### M GO, IPB, HFP, CHM7 ####[facility] (DEFAULT)[address] [place] [address] ALT [Catalytic activity/Vol] 23 U/L Normal 10-52 [facility] Comment on above: Performed By: #### M GO, IPB, HFP, CHM7 ####[facility] (DEFAULT)[address] [place] [address] AST [Catalytic activity/Vol] 23 U/L Normal 10-39 [facility] Comment on above: Performed By: #### M GO, IPB, HFP, CHM7 ####[facility] (DEFAULT)[address] [place] [address] Bilirubin [Mass/Vol] 0.8 mg/dL Normal <1.5 [facility] Comment on above: Performed By: #### M GO, IPB, HFP, CHM7 ####[facility] (DEFAULT)[address] [place] [address] Bilirubin.indirect [Mass/Vol] 0.2 mg/dL Normal <0.3 [facility] Comment on above: Performed By: #### M GO, IPB, HFP, CHM7 ####[facility] (DEFAULT)[address] [facility] [address] Protein [Mass/Vol] 5.9 g/dL Low 6.4-8.3 [facility] Comment on above: Performed By: #### M JO ANN BLOOM, HFP, CHM7 ####[facility] (DEFAULT)[address] [facility] [address] Albumin [Mass/Vol] 2.9 g/dL Low 3.5 - 5.0 g/dL [facility] ALP [Catalytic activity/Vol] 133 U/L High 32 - 126 U/L [facility] ALT [Catalytic activity/Vol] 23 U/L 10 - 52 U/L [facility] AST [Catalytic activity/Vol] 23 U/L 10 - 39 U/L [facility] Bilirubin [Mass/Vol] 0.8 mg/dL NINF - 1.5 mg/dL [facility] Bilirubin.direct [Mass/Vol] 0.2 mg/dL NINF - 0.3 mg/dL [facility] Protein [Mass/Vol] 5.9 g/dL Low 6.4 - 8.3 g/dL [facility] MAGNESIUMon 09-08-2023 Magnesium [Mass/Vol] 1.8 mg/dL Normal 1.6-2.6 [facility] Comment on above: Performed By: #### M JO ANN BLOOM, HFP, CHM7 ####[facility] (DEFAULT)[address] [place] [address] Interpretation and review of laboratory results Normal [facility] Magnesium [Mass/Vol] 1.8 mg/dL 1.6 - 2 .6 mg/dL [facility] No Panel Informationon 09-08 Interpretation and review of laboratory results Abnormal [facility] PHOSPHATE, INORGANICon 09-08 Interpretation and review of laboratory results Normal [facility] Phosphate [Mass/Vol] 4.1 mg/dL 2.2 - 4 .6 mg/dL [facility] Phosphorous 4.1 mg/dL Normal 2.2-4.6 [facility] Comment on above: Performed By: #### M GO, IPB, HFP, CHM7 ####[facility] (DEFAULT)[address] [place] [address] TACROLIMUS LEVEL, TROUGH (NM E DRUG LEVEL)on 09-08-2023 Interpretation and review of laboratory results Normal [facility] Tacrolimus (Bld) [Mass/Vol] 8.5 ng/mL [facility] Tacrolimus, Trough 8.5 ng/mL Normal [facility] Susana ow Transplant: 4.0-12.0, Therapeutic: 5.0-15.0 [facility] Comment on above: Order Comment: Pleas e draw at specified interval PRIOR to dose. Do not hold dose to wait for level. Specimens batched twice per day, (M-F) and once per day weekendsMethod performed is a chemiluminescent microparticle immunoasssay on the [employer] i2000.The range is based on experience at [facility] and users should be aware that target concentrations vary widely depending on concomitant therapy, time post-transplant, and desired degree of immunosuppression. Performed By: #### T ACRO ####[facility] (DEFAULT)[address] [place] [address] CBC,PLATELETSon 09-07-2023 Hematocrit (Bld) [Volume fraction] 37.1 % Low 39.6-48.8 [facility] Comment on above: Performed By: #### [facility] ####[facility] (DEFAULT)[address] [place] [address] Hemoglobin (Bld) [Mass/Vol] 11.9 g/dL Low 13.4-16.8 [facility] Comment on above: Performed By: #### [facility] ####[facility] (DEFAULT)[address] [place] [address] MCV (RBC) [Entitic vol] 86.5 fL Normal 79.0-94.5 [facility] Comment on above: Performed By: #### H EMOGC ####[facility] (DEFAULT)[address] [place] [address] Mean Cell Hgb 27.7 pg Normal 26.1-33.3 [facility] Comment on above: Performed By: #### H EMOGC ####[facility] (DEFAULT)[address] [place] [address] Mean Cell Hgb Conc 32.1 g/dL Normal 31.9-36.5 [facility] Comment on above: Performed By: #### H EMOGC ####[facility] (DEFAULT)[address] [place] [address] Platelet mean volume (Bld) [Entitic vol] 9.6 fL Normal 8.7-12.3 [facility] Comment on above: Performed By: #### H EMOGC ####[facility] (DEFAULT)[address] [place] [address] Platelets (Bld) [#/Vol] 176 10*3/uL Normal 146-337 [facility] Comment on above: Performed By: #### H EMOGC ####[facility] (DEFAULT)[address] [place] [address] RBC (Bld) [#/Vol] 4.29 10*6/uL Low 4.38-5.83 [facility] Comment on above: Performed By: #### H EMOGC ####[facility] (DEFAULT)[address] [place] [address] RBC Distribution 13.5 % Normal 10.9-14.3 [facility] Comment on above: Performed By: #### H EMOGC ####[facility] (DEFAULT)[address] [place] [address] WBC (Bld) [#/Vol] 4.10 10*3/uL Normal 3.73-10.10 [facility] Comment on above: Performed By: #### [facility] ####[facility] (DEFAULT)[address] [place] [address] Erythrocyte distribution width (RBC) [Ratio] 13.5 % 10.9 - 14.3 % [facility] Hematocrit (Bld) [Volume fraction] 37.1 % Low 39.6 - 48.8 % [facility] Hemoglobin (Bld) [Mass/Vol] 11.9 g/dL Low 13.4 - 16.8 g/dL [facility] Interpretation and review of laboratory results Abnormal [facility] MCH (RBC) [Entitic mass] 27.7 pg 26.1 - 33.3 pg [facility] MCHC (RBC) [Mass/Vol] 32.1 g/dL 31.9 - 36.5 g/dL [facility] MCV (RBC) [Entitic vol] 86.5 fL 79.0 - 94.5 fL [facility] Platelet mean volume (Bld) [Entitic vol] 9.6 fL 8.7 - 12.3 fL [facility] Platelets (Bld) [#/Vol] 176 10*3/uL 146 - 337 K/uL [facility] RBC (Bld) [#/Vol] 4.29 10*6/uL Low [facility] WBC (Bld) [#/Vol] 4.10 10*3/uL 3.73 - 10. 10 K/uL [facility] CHEM 7 (LYTES,BUN,CREA,GLUC) on 09-07-2023 Anion gap [Moles/Vol] 13 mmol/L Normal 7-17 [facility] Comment on above: Performed By: #### C HM7, IPB, MGO, HFP ####[facility] (DEFAULT)[address] [place] [address] Chloride [Moles/Vol] 113 mmol/L High 98-108 [facility] Comment on above: Performed By: #### C HM7, IPB, MGO, HFP ####[facility] (DEFAULT)[address] [facility] [place] [address] CO2 [Moles/Vol] 19 mmol/L Low 21-31 [facility] Comment on above: Performed By: #### C HM7, IPB, MGO, HFP ####[facility] (DEFAULT)[address] [place] [address] Creatinine [Mass/Vol] 1.22 mg/dL Normal 0.70-1.30 [facility] Comment on above: Performed By: #### C HM7, IPB, MGO, HFP ####[facility] (DEFAULT)[address] [place] [address], [place] [address] GFR/1.73 sq M.predicted among non-blacks MDRD (S/P/Bld) [Vol rate/Area] 71 mL/min/{1.73_m2} Normal >=60 [facility] Comment on above: Result Comment: Repo rted eGFR is based on the CKD-EPI 2020 equation using creatinine, age, and sex. Performed By: #### C HM7, IPB, MGO, HFP ####[facility] (DEFAULT)[address] [facility] [address] Glucose [Mass/Vol] 107 mg/dL High 70-99 [facility] Comment on above: Performed By: #### C HM7, IPB, MGO, HFP ####[facility] (DEFAULT)[address] [facility] [address] Osmolality [Osmolality] 295 mosm/kg Normal 278-305 [facility] Comment on above: Performed By: #### C HM7, IPB, MGO, HFP ####[facility] (DEFAULT)[address] [facility] [place] [address] Potassium [Moles/Vol] 3.9 mmol/L Normal 3.5-5.0 [facility] Comment on above: Performed By: #### C HM7, IPB, MGO, HFP ####[facility] (DEFAULT)[address] [facility] [place] [address] Sodium [Moles/Vol] 141 mmol/L Normal 135-145 [facility] Comment on above: Performed By: #### C HM7, IPB, MGO, HFP ####[facility] (DEFAULT)[address] [facility] [place] [address] Urea nitrogen [Mass/Vol] 13 mg/dL Normal 7-25 [facility] Comment on above: Performed By: #### C HM7, IPB, MGO, HFP ####[facility] (DEFAULT)[address] [facility] [place] [address] Urea nitrogen/Creatinine [Mass ratio] 11 mg/mg Normal [facility] Comment on above: Performed By: #### C HM7, IPB, MGO, HFP ####[facility] (DEFAULT)[address] [facility] [address] Anion gap [Moles/Vol] 13 mmol/L 7 - 17 mmol/L [facility] Chloride [Moles/Vol] 113 mmol/L High 98 - 10 8 mmol/L [facility] CO2 [Moles/Vol] 19 mmol/L Low 21 - 31 mmol/L [facility] Creatinine [Mass/Vol] 1.22 mg/dL 0.70 - 1.30 mg/dL [facility] eGFR, CKD-EPI, Male 71 - PINF [facility] Glucose [Mass/Vol] 107 mg/dL High 70 - 99 mg/dL [facility] Osmolality Calc [Osmolality] 295 [facility] Potassium [Moles/Vol] 3.9 mmol/L 3.5 - 5.0 mmol/L [facility] Sodium [Moles/Vol] 141 mmol/L 135 - 145 mmol/L [facility] Urea nitrogen [Mass/Vol] 13 mg/dL 7 - 25 mg/dL [facility] Urea nitrogen/Creatinine [Mass ratio] 11 mg/mg [facility] HEPATIC FUNCTION PANELon 10- 09-2023 Albumin [Mass/Vol] 2.9 g/dL Low 3.5-5.0 [facility] Comment on above: Performed By: #### C HM7, IPB, MGO, HFP ####[facility] (DEFAULT)[address] [place] [address] ALP [Catalytic activity/Vol] 111 U/L Normal 32-126 [facility] Comment on above: Performed By: #### C HM7, IPB, MGO, HFP ####[facility] (DEFAULT)[address] [place] [address] ALT [Catalytic activity/Vol] 18 U/L Normal 10-52 [facility] Comment on above: Performed By: #### C HM7, IPB, MGO, HFP ####[facility] (DEFAULT)[address] [place] [address] AST [Catalytic activity/Vol] 23 U/L Normal 10-39 [facility] Comment on above: Performed By: #### C HM7, IPB, MGO, HFP ####[facility] (DEFAULT)[address] [place] [address] Bilirubin [Mass/Vol] 0.8 mg/dL Normal <1.5 [facility] Comment on above: Performed By: #### C HM7, IPB, MGO, HFP ####[facility] (DEFAULT)[address] [place] [address] Bilirubin.indirect [Mass/Vol] 0.3 mg/dL High <0.3 [facility] Comment on above: Performed By: #### C HM7, IPB, MGO, HFP ####[facility] (DEFAULT)[address] [place] [address] Protein [Mass/Vol] 6.0 g/dL Low 6.4-8.3 [facility] Comment on above: Performed By: #### C HM7, IPB, MGO, HFP ####[facility] (DEFAULT)[address] [place] [address] Albumin [Mass/Vol] 2.9 g/dL Low 3.5 - 5.0 g/dL [facility] ALP [Catalytic activity/Vol] 111 U/L 32 - 126 U/L [facility] ALT [Catalytic activity/Vol] 18 U/L 10 - 52 U/L [facility] AST [Catalytic activity/Vol] 23 U/L 10 - 39 U/L [facility] Bilirubin [Mass/Vol] 0.8 mg/dL NINF - 1.5 mg/dL [facility] Bilirubin.direct [Mass/Vol] 0.3 mg/dL High NINF - 0.3 mg/dL [facility] Protein [Mass/Vol] 6.0 g/dL Low 6.4 - 8.3 g/dL [facility] MAGNESIUMon 09-07-2023 Magnesium [Mass/Vol] 1.7 mg/dL Normal 1.6-2.6 [facility] Comment on above: Performed By: #### C JASMYNE, IPB, MGO, HFP ####[facility] (DEFAULT)[address] [place] [address] Interpretation and review of laboratory results Normal [facility] Magnesium [Mass/Vol] 1.7 mg/dL 1.6 - 2 .6 mg/dL [facility] No Panel Informationon 09-07 Interpretation and review of laboratory results Abnormal [facility] PHOSPHATE, INORGANICon 09-07 Phosphorous 4.4 mg/dL Normal 2.2-4.6 [facility] Comment on above: Performed By: #### C HM7, IPB, MGO, HFP ####[facility] (DEFAULT)[address] [place] [address] Interpretation and review of laboratory results Normal [facility] Phosphate [Mass/Vol] 4.4 mg/dL 2.2 - 4 .6 mg/dL [facility] TACROLIMUS LEVEL, TROUGH (NM E DRUG LEVEL)Ordered By: Elizabeth Maldonado on 09-07-2023 Interpretation and review of laboratory results Normal [facility] Tacrolimus (Bld) [Mass/Vol] 7.8 ng/mL [facility] TACROLIMUS LEVEL, TROUGH (NM E DRUG LEVEL)on 09-07-2023 Tacrolimus, Trough 7.8 ng/mL Normal Bone [facility]ana ow Transplant: 4.0-12.0, Therapeutic: 5.0-15.0 [facility] Comment on above: Order Comment: Pleas e draw at specified interval PRIOR to dose. Do not hold dose to wait for level. Specimens batched twice per day, (M-F) and once per day weekendsMethod performed is a chemiluminescent microparticle immunoasssay on the [employer] i2000.The range is based on experience at [facility] and users should be aware that target concentrations vary widely depending on concomitant therapy, time post-transplant, and desired degree of immunosuppression. Performed By: #### T ACRO ####[facility] (DEFAULT)[address] [place] [address] CBC,PLATELETSon 09-06-2023 Hematocrit (Bld) [Volume fraction] 38.4 % Low 39.6-48.8 [facility] Comment on above: Performed By: #### [facility] ####[facility] (DEFAULT)[address] [place] [address] Hemoglobin (Bld) [Mass/Vol] 11.9 g/dL Low 13.4-16.8 [facility] Comment on above: Performed By: #### [facility] ####[facility] (DEFAULT)[address] [place] [address] MCV (RBC) [Entitic vol] 85.9 fL Normal 79.0-94.5 [facility] Comment on above: Performed By: #### H EMO ####[facility] (DEFAULT)[address] [place] [address] Mean Cell Hgb 26.6 pg Normal 26.1-33.3 [facility] Comment on above: Performed By: #### H EMOGC ####[facility] (DEFAULT)[address] [place] [address] Mean Cell Hgb Conc 31.0 g/dL Low 31.9-36.5 [facility] Comment on above: Performed By: #### H EMOGC ####[facility] (DEFAULT)[address] [facility] [place] [address] Platelet mean volume (Bld) [Entitic vol] 9.7 fL Normal 8.7-12.3 [facility] Comment on above: Performed By: #### H EMOGC ####[facility] (DEFAULT)[address] [facility] [place] [address] Platelets (Bld) [#/Vol] 181 10*3/uL Normal 146-337 [facility] Comment on above: Performed By: #### H EMOGC ####[facility] (DEFAULT)[address] [facility] [address] RBC (Bld) [#/Vol] 4.47 10*6/uL Normal 4.38-5.83 [facility] Comment on above: Performed By: #### H EMOGC ####[facility] (DEFAULT)[address] [facility] [place] [address] RBC Distribution 13.4 % Normal 10.9-14.3 [facility] Comment on above: Performed By: #### H EMOGC ####[facility] (DEFAULT)[address] [facility] [place] [address] WBC (Bld) [#/Vol] 4.41 10*3/uL Normal 3.73-10.10 [facility] Comment on above: Performed By: #### H EMOGC ####[facility] (DEFAULT)[address] [facility] [address] Erythrocyte distribution width (RBC) [Ratio] 13.4 % 10.9 - 14.3 % [facility] Hematocrit (Bld) [Volume fraction] 38.4 % Low 39.6 - 48.8 % [facility] Hemoglobin (Bld) [Mass/Vol] 11.9 g/dL Low 13.4 - 16.8 g/dL [facility] Interpretation and review of laboratory results Abnormal [facility] MCH (RBC) [Entitic mass] 26.6 pg 26.1 - 33.3 pg [facility] MCHC (RBC) [Mass/Vol] 31.0 g/dL Low 31.9 - 36.5 g/dL [facility] MCV (RBC) [Entitic vol] 85.9 fL 79.0 - 94.5 fL [facility] Platelet mean volume (Bld) [Entitic vol] 9.7 fL 8.7 - 12.3 fL [facility] Platelets (Bld) [#/Vol] 181 10*3/uL 146 - 337 K/uL [facility] RBC (Bld) [#/Vol] 4.47 10*6/uL [facility] WBC (Bld) [#/Vol] 4.41 10*3/uL 3.73 - 10. 10 K/uL [facility] CHEM 7 (LYTES,BUN,CREA,GLUC) on 09-06-2023 Anion gap [Moles/Vol] 14 mmol/L 7 - 17 mmol/L [facility] Chloride [Moles/Vol] 109 mmol/L High 98 - 10 8 mmol/L [facility] CO2 [Moles/Vol] 19 mmol/L Low 21 - 31 mmol/L [facility] Creatinine [Mass/Vol] 1.26 mg/dL 0.70 - 1.30 mg/dL [facility] eGFR, CKD-EPI, Male 70 - PINF [facility] Glucose [Mass/Vol] 114 mg/dL High 70 - 99 mg/dL [facility] Osmolality Calc [Osmolality] 291 [facility] Potassium [Moles/Vol] 4.1 mmol/L 3.5 - 5.0 mmol/L [facility] Sodium [Moles/Vol] 138 mmol/L 135 - 145 mmol/L [facility] Urea nitrogen [Mass/Vol] 16 mg/dL 7 - 25 mg/dL [facility] Urea nitrogen/Creatinine [Mass ratio] 13 mg/mg [facility] Anion gap [Moles/Vol] 14 mmol/L Normal 7-17 [facility] Comment on above: Performed By: #### NATHANIEL RAMÍREZ, HFP ####[facility] (DEFAULT)[address] [place] [address] Chloride [Moles/Vol] 109 mmol/L High 98-108 [facility] Comment on above: Performed By: #### NATHANIEL RAMÍREZ, HFP ####[facility] (DEFAULT)[address] [place] [address] CO2 [Moles/Vol] 19 mmol/L Low 21-31 [facility] Comment on above: Performed By: #### NATHANIEL RAMÍREZ, HFP ####[facility] (DEFAULT)[address] [place] [address] Creatinine [Mass/Vol] 1.26 mg/dL Normal 0.70-1.30 [facility] Comment on above: Performed By: #### NATHANIEL RAMÍREZ, HFP ####[facility] (DEFAULT)[address] [place] [address] GFR/1.73 sq M.predicted among non-blacks MDRD (S/P/Bld) [Vol rate/Area] 69 mL/min/{1.73_m2} Normal >=60 [facility] Comment on above: Result Comment: Repo rted eGFR is based on the CKD-EPI 2020 equation using creatinine, age, and sex. Performed By: #### NATHANIEL RAMÍREZ, HFP ####[facility] (DEFAULT)[address] [place] [address] Glucose [Mass/Vol] 114 mg/dL High 70-99 [facility] Comment on above: Performed By: #### NATHANIEL RAMÍREZ, HFP ####[facility] (DEFAULT)[address] [place] [address] Osmolality [Osmolality] 291 mosm/kg Normal 278-305 [facility] Comment on above: Performed By: #### NATHANIEL RAMÍREZ, HFP ####[facility] (DEFAULT)[address] [facility] [place] [address] Potassium [Moles/Vol] 4.1 mmol/L Normal 3.5-5.0 [facility] Comment on above: Performed By: #### NATHANIEL RAMÍREZ, HFP ####[facility] (DEFAULT)[address] [facility] [place] [address] Sodium [Moles/Vol] 138 mmol/L Normal 135-145 [facility] Comment on above: Performed By: #### NATHANIEL RAMÍREZ, HFP ####[facility] (DEFAULT)[address] [facility] [place] [address] Urea nitrogen [Mass/Vol] 16 mg/dL Normal 7-25 [facility] Comment on above: Performed By: #### TJ RAMÍREZ7, HFP ####[facility] (DEFAULT)[address] [facility] [place] [address] Urea nitrogen/Creatinine [Mass ratio] 13 mg/mg Normal [facility] Comment on above: Performed By: #### NATHANIEL RAMÍREZ, HFP ####[facility] (DEFAULT)[address] [place] [address] HEPATIC FUNCTION PANELon Albumin [Mass/Vol] 3.0 g/dL Low 3.5 - 5.0 g/dL [facility] ALP [Catalytic activity/Vol] 115 U/L 32 - 126 U/L [facility] ALT [Catalytic activity/Vol] 25 U/L 10 - 52 U/L [facility] AST [Catalytic activity/Vol] 31 U/L 10 - 39 U/L [facility] Bilirubin [Mass/Vol] 1.0 mg/dL NINF - 1.5 mg/dL [facility] Bilirubin.direct [Mass/Vol] 0.3 mg/dL High NINF - 0.3 mg/dL [facility] Protein [Mass/Vol] 6.3 g/dL Low 6.4 - 8.3 g/dL [facility] Albumin [Mass/Vol] 3.0 g/dL Low 3.5-5.0 [facility] Comment on above: Performed By: #### NATHANIEL RAMÍREZ, HFP ####[facility] (DEFAULT)[address] [place] [address] ALP [Catalytic activity/Vol] 115 U/L Normal 32-126 [facility] Comment on above: Performed By: #### NATHANIEL RAMÍREZ, HFP ####[facility] (DEFAULT)[address] [place] [address] ALT [Catalytic activity/Vol] 25 U/L Normal 10-52 [facility] Comment on above: Performed By: #### TJ RAMÍREZ7, HFP ####[facility] (DEFAULT)[address] [place] [address] AST [Catalytic activity/Vol] 31 U/L Normal 10-39 [facility] Comment on above: Performed By: #### Rod BLOOM CHM7, HFP ####[facility] (DEFAULT)[address] [place] [address] Bilirubin [Mass/Vol] 1.0 mg/dL Normal <1.5 [facility] Comment on above: Performed By: #### Rod BLOOM CHM7, HFP ####[facility] (DEFAULT)[address] [place] [address] Bilirubin.indirect [Mass/Vol] 0.3 mg/dL High <0.3 [facility] Comment on above: Performed By: #### M NATHANIEL BLOOM, HFP ####[facility] (DEFAULT)[address] [place] [address] Protein [Mass/Vol] 6.3 g/dL Low 6.4-8.3 [facility] Comment on above: Performed By: #### M NATHANIEL BLOOM, HFP ####[facility] (DEFAULT)[address] [place] [address] MAGNESIUMon 09-06-2023 Interpretation and review of laboratory results Normal [facility] Magnesium [Mass/Vol] 2.0 mg/dL 1.6 - 2 .6 mg/dL [facility] Magnesium [Mass/Vol] 2.0 mg/dL Normal 1.6-2.6 [facility] Comment on above: Performed By: #### NATHANIEL RAMÍREZ, HFP ####[facility] (DEFAULT)[address] [place] [address] No Panel Informationon 09-06 Interpretation and review of laboratory results Abnormal [facility] TACROLIMUS LEVEL, TROUGH (NM E DRUG LEVEL)on 09-06-2023 Interpretation and review of laboratory results Normal [facility] Tacrolimus (Bld) [Mass/Vol] 6.7 ng/mL [facility] Tacrolimus, Trough 6.7 ng/mL Normal Bone Susana ow Transplant: 4.0-12.0, Therapeutic: 5.0-15.0 [facility] Comment on above: Order Comment: Pleas e draw at specified interval PRIOR to dose. Do not hold dose to wait for level. Specimens batched twice per day, (M-F) and once per day weekendsMethod performed is a chemiluminescent microparticle immunoasssay on the [employer] Salt Washer i2000.The range is based on experience at [facility] and users should be aware that target concentrations vary widely depending on concomitant therapy, time post-transplant, and desired degree of immunosuppression. Performed By: #### T ACRO ####[facility] (DEFAULT)[address] [facility] [place] [address] CBC,PLATELETSon 09-05-2023 Hematocrit (Bld) [Volume fraction] 35.6 % Low 39.6-48.8 [facility] Comment on above: Performed By: #### H EMOGC ####[facility] (DEFAULT)[address] [facility] [place] [address] Hemoglobin (Bld) [Mass/Vol] 11.4 g/dL Low 13.4-16.8 [facility] Comment on above: Performed By: #### H EMOGC ####[facility] (DEFAULT)[address] [facility] [address] MCV (RBC) [Entitic vol] 86.0 fL Normal 79.0-94.5 [facility] Comment on above: Performed By: #### H EMOGC ####[facility] (DEFAULT)[address] [facility] [address] Mean Cell Hgb 27.5 pg Normal 26.1-33.3 [facility] Comment on above: Performed By: #### H EMOGC ####[facility] (DEFAULT)[address] [facility] [place] [address] Mean Cell Hgb Conc 32.0 g/dL Normal 31.9-36.5 [facility] Comment on above: Performed By: #### H EMOGC ####[facility] (DEFAULT)[address] [facility] [place] [address] Platelet mean volume (Bld) [Entitic vol] 10.0 fL Normal 8.7-12.3 [facility] Comment on above: Performed By: #### H EMOGC ####[facility] (DEFAULT)[address] [facility] [address] Platelets (Bld) [#/Vol] 170 10*3/uL Normal 146-337 [facility] Comment on above: Performed By: #### H EMOGC ####[facility] (DEFAULT)[address] [place] [address] RBC (Bld) [#/Vol] 4.14 10*6/uL Low 4.38-5.83 [facility] Comment on above: Performed By: #### H EMO ####[facility] (DEFAULT)[address] [facility] [address] RBC Distribution 13.5 % Normal 10.9-14.3 [facility] Comment on above: Performed By: #### H [facility] ####[facility] (DEFAULT)[address] [place] [address] WBC (Bld) [#/Vol] 4.24 10*3/uL Normal 3.73-10.10 [facility] Comment on above: Performed By: #### H [facility] ####[facility] (DEFAULT)[address] [place] [address] Erythrocyte distribution width (RBC) [Ratio] 13.5 % 10.9 - 14.3 % [facility] Hematocrit (Bld) [Volume fraction] 35.6 % Low 39.6 - 48.8 % [facility] Hemoglobin (Bld) [Mass/Vol] 11.4 g/dL Low 13.4 - 16.8 g/dL [facility] Interpretation and review of laboratory results Abnormal [facility] MCH (RBC) [Entitic mass] 27.5 pg 26.1 - 33.3 pg [facility] MCHC (RBC) [Mass/Vol] 32.0 g/dL 31.9 - 36.5 g/dL [facility] MCV (RBC) [Entitic vol] 86.0 fL 79.0 - 94.5 fL [facility] Platelet mean volume (Bld) [Entitic vol] 10.0 fL 8.7 - 12.3 fL [facility] Platelets (Bld) [#/Vol] 170 10*3/uL 146 - 337 K/uL [facility] RBC (Bld) [#/Vol] 4.14 10*6/uL Low U [facility] WBC (Bld) [#/Vol] 4.24 10*3/uL 3.73 - 10. 10 K/uL [facility] CHEM 7 (LYTES,BUN,CREA,GLUC) on 09-05-2023 Anion gap [Moles/Vol] 12 mmol/L Normal 7-17 [facility] Comment on above: Performed By: #### H FP, CHM7, MGO ####[facility] (DEFAULT)[address] [facility] [place] [address] Chloride [Moles/Vol] 107 mmol/L Normal 98-108 [facility] Comment on above: Performed By: #### H FP, CHM7, MGO ####[facility] (DEFAULT)[address] [facility] [place] [address] CO2 [Moles/Vol] 20 mmol/L Low 21-31 [facility] Comment on above: Performed By: #### H FP, CHM7, MGO ####[facility] (DEFAULT)[address] [facility] [address] Creatinine [Mass/Vol] 1.43 mg/dL High 0.70-1.30 [facility] Comment on above: Performed By: #### H FP, CHM7, MGO ####[facility] (DEFAULT)[address] [facility] [address] GFR/1.73 sq M.predicted among non-blacks MDRD (S/P/Bld) [Vol rate/Area] 59 mL/min/{1.73_m2} Low >=60 [facility] Comment on above: Result Comment: Repo rted eGFR is based on the CKD-EPI 2020 equation using creatinine, age, and sex. Performed By: #### H FP, CHM7, MGO ####[facility] (DEFAULT)[address] [facility] [address] Glucose [Mass/Vol] 111 mg/dL High 70-99 [facility] Comment on above: Performed By: #### H ANTWAN, CHM7, MGO ####[facility] (DEFAULT)[address] [place] [address] Osmolality [Osmolality] 286 mosm/kg Normal 278-305 [facility] Comment on above: Performed By: #### H FP, CHM7, MGO ####[facility] (DEFAULT)[address] [place] [address] Potassium [Moles/Vol] 4.2 mmol/L Normal 3.5-5.0 [facility] Comment on above: Performed By: #### H ANTWAN, CHM7, MGO ####[facility] (DEFAULT)[address] [place] [address] Sodium [Moles/Vol] 135 mmol/L Normal 135-145 [facility] Comment on above: Performed By: #### H FP, CHM7, MGO ####[facility] (DEFAULT)[address] [facility] [place] [address] Urea nitrogen [Mass/Vol] 18 mg/dL Normal 7-25 [facility] Comment on above: Performed By: #### Lydia FP, CHM7, MGO ####[facility] (DEFAULT)[address] [facility] [place] [address] Urea nitrogen/Creatinine [Mass ratio] 13 mg/mg Normal [facility] Comment on above: Performed By: #### H FP, CHM7, MGO ####[facility] (DEFAULT)[address] [facility] [place] [address] Anion gap [Moles/Vol] 12 mmol/L 7 - 17 mmol/L [facility] Chloride [Moles/Vol] 107 mmol/L 98 - 10 8 mmol/L [facility] CO2 [Moles/Vol] 20 mmol/L Low 21 - 31 mmol/L [facility] Creatinine [Mass/Vol] 1.43 mg/dL High 0.70 - 1.30 mg/dL [facility] eGFR, CKD-EPI, Male 60 Low - PINF [facility] Glucose [Mass/Vol] 111 mg/dL High 70 - 99 mg/dL [facility] Osmolality Calc [Osmolality] 286 [facility] Potassium [Moles/Vol] 4.2 mmol/L 3.5 - 5.0 mmol/L [facility] Sodium [Moles/Vol] 135 mmol/L 135 - 145 mmol/L [facility] Urea nitrogen [Mass/Vol] 18 mg/dL 7 - 25 mg/dL [facility] Urea nitrogen/Creatinine [Mass ratio] 13 mg/mg [facility] CONTINUOUS CARDIAC MONITORIN G STRIPon 09-05-2023 [facility] HEPATIC FUNCTION PANELon Albumin [Mass/Vol] 2.8 g/dL Low 3.5-5.0 [facility] Comment on above: Performed By: #### H FP, CHM7, MGO ####[facility] (DEFAULT)[address] [place] [address] ALP [Catalytic activity/Vol] 103 U/L Normal 32-126 [facility] Comment on above: Performed By: #### H FP, CHM7, MGO ####[facility] (DEFAULT)[address] [facility] [address] ALT [Catalytic activity/Vol] 26 U/L Normal 10-52 [facility] Comment on above: Performed By: #### H FP, CHM7, MGO ####[facility] (DEFAULT)[address] [place] [address] AST [Catalytic activity/Vol] 38 U/L Normal 10-39 [facility] Comment on above: Performed By: #### H FP, CHM7, MGO ####[facility] (DEFAULT)[address] [place] [address] Bilirubin [Mass/Vol] 0.9 mg/dL Normal <1.5 [facility] Comment on above: Performed By: #### H NATHANIEL MONCADA, MGO ####[facility] (DEFAULT)[address] [place] [address] Bilirubin.indirect [Mass/Vol] 0.1 mg/dL Normal <0.3 [facility] Comment on above: Performed By: #### H NATHANIEL MONCADA, MGO ####[facility] (DEFAULT)[address] [place] [address] Protein [Mass/Vol] 6.1 g/dL Low 6.4-8.3 [facility] Comment on above: Performed By: #### H NATHANIEL MONCADA, MGO ####[facility] (DEFAULT)[address] [place] [address] Albumin [Mass/Vol] 2.8 g/dL Low 3.5 - 5.0 g/dL [facility] ALP [Catalytic activity/Vol] 103 U/L 32 - 126 U/L [facility] ALT [Catalytic activity/Vol] 26 U/L 10 - 52 U/L [facility] AST [Catalytic activity/Vol] 38 U/L 10 - 39 U/L [facility] Bilirubin [Mass/Vol] 0.9 mg/dL [facility] mg/dL [facility] Bilirubin.direct [Mass/Vol] 0.1 mg/dL NINF - 0.3 mg/dL [facility] Protein [Mass/Vol] 6.1 g/dL Low 6.4 - 8.3 g/dL [facility] HISTOPLASMA ANTIGEN, FLUIDon 09-05-2023 FH SOURCE BAL RML [facility] Histo FLD interpretation Negative [facility] Histoplasma Antigen, FLUID Not detected ng/mL [facility] HISTOPLASMA CAPSULATUM/BLAST OMYCES SPECIES,PCR FLUIDon 09-05-2023 HISTO/BLASTO RESULT Negative Not Applicable [facility] Specimen source Nom (Unsp spec) BAL RML [facility] IMMUNOPHENOTYPING, TISSUE/FL UIDon 09-05-2023 BKR DX CODE Use Ordering [facility] Flow Interpretation See Comment [facility] Flow Interpreted by: Yossi Perla MD, PhD [facility] MAGNESIUMon 09-05-2023 Magnesium [Mass/Vol] 1.7 mg/dL Normal 1.6-2.6 [facility] Comment on above: Performed By: #### H FP, CHM7, MGO ####[facility] (DEFAULT)[address] [place] [address] Interpretation and review of laboratory results Normal [facility] Magnesium [Mass/Vol] 1.7 mg/dL 1.6 - 2 .6 mg/dL [facility] No Panel Informationon 09-05 Interpretation and review of laboratory results Abnormal [facility] TACROLIMUS LEVEL, TROUGH (NM E DRUG LEVEL)Ordered By: Raymundo Mehta on 09-05-2023 Interpretation and review of laboratory results Normal [facility] Tacrolimus (Bld) [Mass/Vol] 5.3 ng/mL [facility] TACROLIMUS LEVEL, TROUGH (NM E DRUG LEVEL)on 09-05-2023 Tacrolimus, Trough 5.3 ng/mL Normal Bone Susana ow Transplant: 4.0-12.0, Therapeutic: 5.0-15.0 [facility] Comment on above: Order Comment: Pleas e draw at specified interval PRIOR to dose. Do not hold dose to wait for level. Specimens batched twice per day, (M-F) and once per day weekendsMethod performed is a chemiluminescent microparticle immunoasssay on the [employer] Salt Washer i2000.The range is based on experience at [facility] and users should be aware that target concentrations vary widely depending on concomitant therapy, time post-transplant, and desired degree of immunosuppression. Performed By: #### T ACRO ####[facility] (DEFAULT)[address] [place] [address] ARTERIAL BLOOD GAS (FULL GOSS EL)on 09-04-2023 Base Excess -1.2 mmol/L Normal -3.0-3.0 [facility] Comment on above: Performed By: #### Vale UNDERWOOD ####[facility] (DEFAULT)[address] [place] [address] Carboxyhemoglobin 0.7 % Normal <=1.5 [facility] Comment on above: Performed By: #### Vale UNDERWOOD ####[facility] (DEFAULT)[address] [facility] [place] [address] Glucose [Mass/Vol] 159 mg/dL High 70-99 [facility] Comment on above: Performed By: #### Vale UNDERWOOD ####[facility] (DEFAULT)[address] [facility] [place] [address] HCO3 (Bld) [Moles/Vol] 22 mmol/L Normal 22-28 [facility] Comment on above: Performed By: #### Vale UNDERWOOD ####[facility] (DEFAULT)[address] [place] [address] Hematocrit (Bld) [Volume fraction] 38.0 % Low 40.2-50.4 [facility] Comment on above: Performed By: #### Vale UNDERWOOD ####[facility] (DEFAULT)[address] [facility] [place] [address] Hemoglobin (Bld) [Mass/Vol] 12.6 g/dL Low 13.4-16.8 [facility] Comment on above: Performed By: #### Vale UNDERWOOD ####[facility] (DEFAULT)[address] [facility] [place] [address] Ionized Calcium, Whole Blood 4.79 mg/dL Normal 4.60-5.30 [facility] Comment on above: Performed By: #### Vale UNDERWOOD ####[facility] (DEFAULT)[address] [place] [address] Lactate, Whole Blood 2.0 mmol/L High 0.5-1.6 [facility] Comment on above: Performed By: #### Vale UNDERWOOD ####[facility] (DEFAULT)[address] [place] [address] Methemoglobin 0.0 % Normal <=1.5 [facility] Comment on above: Performed By: #### Vale UNDERWOOD ####[facility] (DEFAULT)[address] [place] [address] Oxyhemoglobin 91 % Low 94-98 [facility] Comment on above: Performed By: #### Vale UNDERWOOD ####[facility] (DEFAULT)[address] [place] [address] pCO2 30 mm Hg Low 32-48 [facility] Comment on above: Performed By: #### Vale UNDERWOOD ####[facility] (DEFAULT)[address] [place] [address] pH (Bld) 7.48 [pH] High 7.35-7.45 [facility] Comment on above: Performed By: #### Vale UNDERWOOD ####[facility] (DEFAULT)[address] [place] [address] pO2 62 mm Hg Low 83-108 [facility] Comment on above: Performed By: #### Vale UNDERWOOD ####[facility] (DEFAULT)[address] [place] [address] Potassium [Moles/Vol] 4.2 mmol/L Normal 3.5-5.0 [facility] Comment on above: Performed By: #### Vale UNDERWOOD ####[facility] (DEFAULT)[address] [place] [address] sO2 92 % Low 94-98 [facility] Comment on above: Performed By: #### Vale UNDERWOOD ####[facility] (DEFAULT)[address] [facility] [address] Sodium [Moles/Vol] 130 mmol/L Low 135-145 [facility] Comment on above: Performed By: #### Vale UNDERWOOD ####[facility] (DEFAULT)[address] [facility] [address] Specimen type Nom (Spec) Arterial Normal [facility] Comment on above: Performed By: #### Vale UNDERWOOD ####[facility] (DEFAULT)[address] [place] [address] Base excess Calc (Bld) [Moles/Vol] -1.2000 mmol/L -3.0 - 3.0 mmol/L [facility] Calcium.ionized (Bld) [Mass/Vol] 4.79 mg/dL 4.60 - 5.30 mg/dL [facility] Carboxyhemoglobin (Bld) [Mass fraction] 0.7 % NINF - 1.5 % [facility] CO2 (Bld) [Partial pressure] 30 mm[Hg] Low [facility] Glucose [Mass/Vol] 159 mg/dL High 70 - 99 mg/dL [facility] HCO3 (Bld) [Moles/Vol] 22 mmol/L 22 - 28 mmol/L [facility] Hematocrit (Bld) [Volume fraction] 38.0 % Low 40.2 - 50.4 % [facility] Hemoglobin (Bld) [Mass/Vol] 12.6 g/dL Low 13.4 - 16.8 g/dL [facility] Interpretation and review of laboratory results Abnormal [facility] Lactate [Moles/Vol] 2.0 mmol/L High 0.5 - 1. 6 mmol/L [facility] Methemoglobin (Bld) [Mass fraction] 0.0 % NINF - 1.5 % [facility] Oxygen (Bld) [Partial pressure] 62 mm[Hg] Low [facility] Oxygen saturation in Blood 92 % Low 94 - 98 % [facility] Oxyhemoglobin 91 % Low 94 - 98 % [facility] pH (Bld) 7.48 [pH] High 7.35 - 7.45 [facility] Potassium [Moles/Vol] 4.2 mmol/L 3.5 - 5.0 mmol/L [facility] Sodium [Moles/Vol] 130 mmol/L Low 135 - 145 mmol/L [facility] Specimen source Nom (Unsp spec) [facility]ial [facility] Bacteria identified Respirat ory culture Nom (Unsp spec)on 09-04-2023 Bacteria identified Cx Nom (Unsp spec) NO GROWTH DAY 2 OF 2 [facility] Microscopic observation Other stain Nom (Unsp spec) [facility] Other stain Nom (Unsp spec) Neutrophils, Rare [facility] Microscopic observation Other stain Nom (Unsp spec) Red Blood Cells Present [facility] Microscopic observation Other stain Nom (Unsp spec) No organisms seen [facility] Bacteria identified Respirat ory culture Nom (Unsp spec)Ordered By: Jose Salgado on 09-04-2023 Bacteria identified Cx Nom (Unsp spec) NO GROWTH DAY 2 OF 2 [facility] Microscopic observation Other stain Nom (Unsp spec) Cytocentrifuge preparation [facility] Microscopic observation Other stain Nom (Unsp spec) Neutrophils, Moderate [facility] Microscopic observation Other stain Nom (Unsp spec) Red Blood Cells Present [facility] Microscopic observation Other stain Nom (Unsp spec) No organisms seen [facility] CBC,PLATELETSon 09-04-2023 Hematocrit (Bld) [Volume fraction] 38.7 % Low 39.6-48.8 [facility] Comment on above: Performed By: #### H [facility] ####[facility] (DEFAULT)[address] [place] [address] Hemoglobin (Bld) [Mass/Vol] 12.3 g/dL Low 13.4-16.8 [facility] Comment on above: Performed By: #### H EMOGC ####[facility] (DEFAULT)[address] [place] [address] MCV (RBC) [Entitic vol] 87.8 fL Normal 79.0-94.5 [facility] Comment on above: Performed By: #### H EMOGC ####[facility] (DEFAULT)[address] [place] [address] Mean Cell Hgb 27.9 pg Normal 26.1-33.3 [facility] Comment on above: Performed By: #### H EMOGC ####[facility] (DEFAULT)[address] [facility] [place] [address] Mean Cell Hgb Conc 31.8 g/dL Low 31.9-36.5 [facility] Comment on above: Performed By: #### H EMOGC ####[facility] (DEFAULT)[address] [facility] [place] [address] Platelet mean volume (Bld) [Entitic vol] 9.8 fL Normal 8.7-12.3 [facility] Comment on above: Performed By: #### H EMOGC ####[facility] (DEFAULT)[address] [place] [address] Platelets (Bld) [#/Vol] 173 10*3/uL Normal 146-337 [facility] Comment on above: Performed By: #### H EMOGC ####[facility] (DEFAULT)[address] [place] [address] RBC (Bld) [#/Vol] 4.41 10*6/uL Normal 4.38-5.83 [facility] Comment on above: Performed By: #### H EMOGC ####[facility] (DEFAULT)[address] [place] [address] RBC Distribution 13.2 % Normal 10.9-14.3 [facility] Comment on above: Performed By: #### H [facility] ####[facility] (DEFAULT)[address] [place] [address] WBC (Bld) [#/Vol] 4.57 10*3/uL Normal 3.73-10.10 [facility] Comment on above: Performed By: #### H [facility] ####[facility] (DEFAULT)[address] [place] [address] Erythrocyte distribution width (RBC) [Ratio] 13.2 % 10.9 - 14.3 % [facility] Hematocrit (Bld) [Volume fraction] 38.7 % Low 39.6 - 48.8 % [facility] Hemoglobin (Bld) [Mass/Vol] 12.3 g/dL Low 13.4 - 16.8 g/dL [facility] Interpretation and review of laboratory results Abnormal [facility] MCH (RBC) [Entitic mass] 27.9 pg 26.1 - 33.3 pg [facility] MCHC (RBC) [Mass/Vol] 31.8 g/dL Low 31.9 - 36.5 g/dL [facility] MCV (RBC) [Entitic vol] 87.8 fL 79.0 - 94.5 fL [facility] Platelet mean volume (Bld) [Entitic vol] 9.8 fL 8.7 - 12.3 fL [facility] Platelets (Bld) [#/Vol] 173 10*3/uL 146 - 337 K/uL [facility] RBC (Bld) [#/Vol] 4.41 10*6/uL [facility] WBC (Bld) [#/Vol] 4.57 10*3/uL 3.73 - 10. 10 K/uL [facility] CHEM 7 (LYTES,BUN,CREA,GLUC) on 09-04-2023 Anion gap [Moles/Vol] 16 mmol/L Normal 7-17 [facility] Comment on above: Performed By: #### M MERLE, CHM7, [facility] ####[facility] (DEFAULT)[address] [place] [address] Chloride [Moles/Vol] 104 mmol/L Normal 98-108 [facility] Comment on above: Performed By: #### NATHANIEL RAMÍREZ, HFP ####[facility] (DEFAULT)[address] [place] [address] CO2 [Moles/Vol] 18 mmol/L Low 21-31 [facility] Comment on above: Performed By: #### NATHANIEL RAMÍREZ, HFP ####[facility] (DEFAULT)[address] [place] [address] Creatinine [Mass/Vol] 1.22 mg/dL Normal 0.70-1.30 [facility] Comment on above: Performed By: #### NATHANIEL RAMÍREZ, HFP ####[facility] (DEFAULT)[address] [place] [address] GFR/1.73 sq M.predicted among non-blacks MDRD (S/P/Bld) [Vol rate/Area] 71 mL/min/{1.73_m2} Normal >=60 [facility] Comment on above: Result Comment: Repo rted eGFR is based on the CKD-EPI 2020 equation using creatinine, age, and sex. Performed By: #### NATHANIEL RAMÍREZ, HFP ####[facility] (DEFAULT)[address] [place] [address] Glucose [Mass/Vol] 124 mg/dL High 70-99 [facility] Comment on above: Performed By: #### NATHANIEL RAMÍREZ, HFP ####[facility] (DEFAULT)[address] [place] [address] Osmolality [Osmolality] 284 mosm/kg Normal 278-305 [facility] Comment on above: Performed By: #### NATHANIEL RAMÍRZE, HFP ####[facility] (DEFAULT)[address] [place] [address] Potassium [Moles/Vol] 3.9 mmol/L Normal 3.5-5.0 [facility] Comment on above: Performed By: #### NATHANIEL RAMÍREZ, HFP ####[facility] (DEFAULT)[address] [place] [address] Sodium [Moles/Vol] 134 mmol/L Low 135-145 [facility] Comment on above: Performed By: #### NATHANIEL RAMÍREZ, HFP ####[facility] (DEFAULT)[address] [facility] [address] Urea nitrogen [Mass/Vol] 15 mg/dL Normal 7-25 [facility] Comment on above: Performed By: #### NATHANIEL RAMÍREZ, HFP ####[facility] (DEFAULT)[address] [facility] [place] [address] Urea nitrogen/Creatinine [Mass ratio] 12 mg/mg Normal [facility] Comment on above: Performed By: #### NATHANIEL RAMÍREZ, HFP ####[facility] (DEFAULT)[address] [facility] [place] [address] Anion gap [Moles/Vol] 16 mmol/L 7 - 17 mmol/L [facility] Chloride [Moles/Vol] 104 mmol/L 98 - 10 8 mmol/L [facility] CO2 [Moles/Vol] 18 mmol/L Low 21 - 31 mmol/L [facility] Creatinine [Mass/Vol] 1.22 mg/dL 0.70 - 1.30 mg/dL [facility] eGFR, CKD-EPI, Male 72 - PINF [facility] Glucose [Mass/Vol] 124 mg/dL High 70 - 99 mg/dL [facility] Osmolality Calc [Osmolality] 284 [facility] Potassium [Moles/Vol] 3.9 mmol/L 3.5 - 5.0 mmol/L [facility] Sodium [Moles/Vol] 134 mmol/L Low 135 - 145 mmol/L [facility] Urea nitrogen [Mass/Vol] 15 mg/dL 7 - 25 mg/dL [facility] Urea nitrogen/Creatinine [Mass ratio] 12 mg/mg [facility] CMV PCR,FLUIDS,URINE,EYE ETC on 09-04-2023 Specimen source Nom (Unsp spec) BAL LLL [facility] Specimen source Nom (Unsp spec) BAL RML [facility] HEPATIC FUNCTION PANELon Albumin [Mass/Vol] 3.0 g/dL Low 3.5-5.0 [facility] Comment on above: Performed By: #### M TJ BLOOM7, HFP ####[facility] (DEFAULT)[address] [place] [address] ALP [Catalytic activity/Vol] 112 U/L Normal 32-126 [facility] Comment on above: Performed By: #### Rod BLOOM CHM7, HFP ####[facility] (DEFAULT)[address] [facility] [place] [address] ALT [Catalytic activity/Vol] 22 U/L Normal 10-52 [facility] Comment on above: Performed By: #### Rod BLOOM CHM7, HFP ####[facility] (DEFAULT)[address] [place] [address] AST [Catalytic activity/Vol] 30 U/L Normal 10-39 [facility] Comment on above: Performed By: #### Rod BLOOM CHM7, HFP ####[facility] (DEFAULT)[address] [place] [address] Bilirubin [Mass/Vol] 1.2 mg/dL Normal <1.5 [facility] Comment on above: Performed By: #### M MERLE CHM7, HFP ####[facility] (DEFAULT)[address] [place] [address] Bilirubin.indirect [Mass/Vol] 0.4 mg/dL High <0.3 [facility] Comment on above: Performed By: #### Rod BLOOM CHM7, HFP ####[facility] (DEFAULT)[address] [facility] [address] Protein [Mass/Vol] 6.4 g/dL Normal 6.4-8.3 [facility] Comment on above: Performed By: #### M NATHANIEL BLOOM, HFP ####[facility] (DEFAULT)[address] [facility] [place] [address] Albumin [Mass/Vol] 3.0 g/dL Low 3.5 - 5.0 g/dL [facility] ALP [Catalytic activity/Vol] 112 U/L 32 - 126 U/L [facility] ALT [Catalytic activity/Vol] 22 U/L 10 - 52 U/L [facility] AST [Catalytic activity/Vol] 30 U/L 10 - 39 U/L [facility] Bilirubin [Mass/Vol] 1.2 mg/dL NINF - 1.5 mg/dL [facility] Bilirubin.direct [Mass/Vol] 0.4 mg/dL High NINF - 0.3 mg/dL [facility] Protein [Mass/Vol] 6.4 g/dL 6.4 - 8.3 g/dL [facility] LEGIONELLA PCRon 09-04-2023 Legionella sp rRNA Probe Ql (Unsp spec) Negative Not Applicable [facility] Specimen source Nom (Unsp spec) BAL RML [facility] - Microbiology an d Antimicrobial susceptibilityon 09-04-2023 CMV DNA ESTELITA+probe Ql (Unsp spec) Negative Negative [facility] MAGNESIUMon 09-04-2023 Magnesium [Mass/Vol] 1.4 mg/dL Low 1.6-2.6 [facility] Comment on above: Performed By: #### M NATHANIEL BLOOM, HFP ####[facility] (DEFAULT)[address] [facility] [address] Magnesium [Mass/Vol] 1.4 mg/dL Low 1.6 - 2 .6 mg/dL [facility] No Panel Informationon 09-04 Annotation comment [Interpretation] Narrative DNR [facility] PN Report Status DNR [facility] Pneumocystis jiroveci,PCR result Negative Not Applicable [facility] Interpretation and review of laboratory results Abnormal [facility] PNEUMOCYSTIS JIROVECI,PCRon 09-04-2023 Specimen source Nom (Unsp spec) BAL LLL [facility] Specimen source Nom (Unsp spec) BAL RML [facility] Portable XR Chest Viewson RADIOLOGY RADIOLOGY [facility] Radiology Study observation (narrative) [facility] Portable XR Chest ViewsOrder ed By: Joanie Nugent on 09-04-2023 [facility] Work Phone: TACROLIMUS LEVEL, TROUGH (NM E DRUG LEVEL)on 09-04-2023 Interpretation and review of laboratory results Abnormal [facility] Tacrolimus (Bld) [Mass/Vol] 3.6 ng/mL Low [facility] Tacrolimus, Trough 3.6 ng/mL Low Bone Susana ow Transplant: 4.0-12.0, Therapeutic: 5.0-15.0 [facility] Comment on above: Order Comment: Pleas e draw at specified interval PRIOR to dose. Do not hold dose to wait for level. Specimens batched twice per day, (M-F) and once per day weekendsMethod performed is a chemiluminescent microparticle immunoasssay on the [employer] i2000.The range is based on experience at [facility] and users should be aware that target concentrations vary widely depending on concomitant therapy, time post-transplant, and desired degree of immunosuppression. Performed By: #### T ACRO ####[facility] (DEFAULT)[address] [place] [address] XR CHEST PORTABLEon 09-04-20 23 XR CHEST PORTABLE Normal [facility] ASPERGILLUS ANTIGEN, BALon 1 Galactomannan Ag IA Qn (Unsp spec) <0.500 NINF [facility] Galactomannan Ag IA Qn (Unsp spec) <0.500 NINF [facility] BAL CONSULTOrdered By: Noa Peralta on 09-03-2023 ALVEOLAR MACROPHAGES 32 % [facility] Work Phone: Bal comments Correlation with microbiology stains and cultures is recommended. [facility] Work Phone: Bal Diff Quik Stain Quality Check Acceptable [facility] Work Phone: BKR BAL INTERPRETATION Cellular specimen comprised of alveolar macrophages and small lymphocytes. No definitive microorganisms are observed. Moderate degenerative changes. [facility] Work Phone: BKR DX CODE Use Ordering [facility] Work Phone: Eosinophils Patterson stain Ql (Unsp spec) 0 % [facility] Work Phone: Lymphocytes/100 WBC (Bld) 57 % [facility] Work Phone: Neutrophils/100 WBC Manual cnt (Bronch spec) 11 % [facility] Work Phone: Pathologist review Jame (Unsp spec) [Interp] Leonardo Peralta MD [facility] Work Phone: [facility] Work Phone: BAL CONSULTon 09-03-2023 ALVEOLAR MACROPHAGES 33 % [facility] Bal comments Correlation with microbiology stains and cultures is recommended. Correlation with viral studies is recommended. [facility] Bal Diff Quik Stain Quality Check Acceptable [facility] BKR BAL INTERPRETATION Cellular specimen comprised of alveolar macrophages and small lymphocytes. No definitive microorganisms are observed. Rare degenerating cells with changes suggestive of viral cytopathic effect are noted. Moderate degenerative changes. [facility] BKR DX CODE Use Ordering [facility] Eosinophils Patterson stain Ql (Unsp spec) 0 % [facility] Lymphocytes/100 WBC (Bld) 49 % [facility] Neutrophils/100 WBC Manual cnt (Bronch spec) 18 % [facility] Pathologist review Jame (Unsp spec) [Interp] Leonardo Peralta MD [facility] BRONCHOSCOPYon 09-03-2023 LAB, [facility] CBC,PLATELETSon 09-03-2023 Hematocrit (Bld) [Volume fraction] 39.6 % Normal 39.6-48.8 [facility] Comment on above: Performed By: #### H EMOGC ####[facility] (DEFAULT)[address] [place] [address] Hemoglobin (Bld) [Mass/Vol] 12.8 g/dL Low 13.4-16.8 [facility] Comment on above: Performed By: #### H EMOGC ####[facility] (DEFAULT)[address] [place] [address] MCV (RBC) [Entitic vol] 85.9 fL Normal 79.0-94.5 [facility] Comment on above: Performed By: #### H EMOGC ####[facility] (DEFAULT)[address] [place] [address] Mean Cell Hgb 27.8 pg Normal 26.1-33.3 [facility] Comment on above: Performed By: #### H EMOGC ####[facility] (DEFAULT)[address] [place] [address] Mean Cell Hgb Conc 32.3 g/dL Normal 31.9-36.5 [facility] Comment on above: Performed By: #### H EMOGC ####[facility] (DEFAULT)[address] [place] [address] Platelet mean volume (Bld) [Entitic vol] 9.4 fL Normal 8.7-12.3 [facility] Comment on above: Performed By: #### H EMOGC ####[facility] (DEFAULT)[address] [facility] [address] Platelets (Bld) [#/Vol] 222 10*3/uL Normal 146-337 [facility] Comment on above: Performed By: #### H EMO ####[facility] (DEFAULT)[address] [facility] [address] RBC (Bld) [#/Vol] 4.61 10*6/uL Normal 4.38-5.83 [facility] Comment on above: Performed By: #### H EMOGC ####[facility] (DEFAULT)[address] [facility] [address] RBC Distribution 13.4 % Normal 10.9-14.3 [facility] Comment on above: Performed By: #### H EMOGC ####[facility] (DEFAULT)[address] [facility] [address] WBC (Bld) [#/Vol] 4.36 10*3/uL Normal 3.73-10.10 [facility] Comment on above: Performed By: #### H [facility] ####[facility] (DEFAULT)[address] [facility] [address] Erythrocyte distribution width (RBC) [Ratio] 13.4 % 10.9 - 14.3 % [facility] Hematocrit (Bld) [Volume fraction] 39.6 % 39.6 - 48.8 % [facility] Hemoglobin (Bld) [Mass/Vol] 12.8 g/dL Low 13.4 - 16.8 g/dL [facility] Interpretation and review of laboratory results Abnormal [facility] MCH (RBC) [Entitic mass] 27.8 pg 26.1 - 33.3 pg [facility] MCHC (RBC) [Mass/Vol] 32.3 g/dL 31.9 - 36.5 g/dL [facility] MCV (RBC) [Entitic vol] 85.9 fL 79.0 - 94.5 fL [facility] Platelet mean volume (Bld) [Entitic vol] 9.4 fL 8.7 - 12.3 fL [facility] Platelets (Bld) [#/Vol] 222 10*3/uL 146 - 337 K/uL [facility] RBC (Bld) [#/Vol] 4.61 10*6/uL [facility] WBC (Bld) [#/Vol] 4.36 10*3/uL 3.73 - 10. 10 K/uL [facility] CHEM 7 (LYTES,BUN,CREA,GLUC) on 09-03-2023 Anion gap [Moles/Vol] 12 mmol/L Normal 7-17 [facility] Comment on above: Performed By: #### Rod BLOOM CHM7, HFP ####[facility] (DEFAULT)[address] [facility] [address] Chloride [Moles/Vol] 104 mmol/L Normal 98-108 [facility] Comment on above: Performed By: #### Rod BLOOM CHM7, HFP ####[facility] (DEFAULT)[address] [facility] [address] CO2 [Moles/Vol] 24 mmol/L Normal 21-31 [facility] Comment on above: Performed By: #### Rod BLOOM CHM7, HFP ####[facility] (DEFAULT)[address] [facility] [address] Creatinine [Mass/Vol] 1.20 mg/dL Normal 0.70-1.30 [facility] Comment on above: Performed By: #### Rod BLOOM CHM7, HFP ####[facility] (DEFAULT)[address] [place] [address] GFR/1.73 sq M.predicted among non-blacks MDRD (S/P/Bld) [Vol rate/Area] 73 mL/min/{1.73_m2} Normal >=60 [facility] Comment on above: Result Comment: Repo rted eGFR is based on the CKD-EPI 2020 equation using creatinine, age, and sex. Performed By: #### NATHANIEL RAMÍREZ, HFP ####[facility] (DEFAULT)[address] [place] [address] Glucose [Mass/Vol] 112 mg/dL High 70-99 [facility] Comment on above: Performed By: #### NATHANIEL RAMÍREZ, HFP ####[facility] (DEFAULT)[address] [place] [address] Osmolality [Osmolality] 288 mosm/kg Normal 278-305 [facility] Comment on above: Performed By: #### NATHANIEL RAMÍREZ, HFP ####[facility] (DEFAULT)[address] [place] [address] Potassium [Moles/Vol] 4.1 mmol/L Normal 3.5-5.0 [facility] Comment on above: Performed By: #### NATHANIEL RAMÍREZ, HFP ####[facility] (DEFAULT)[address] [place] [address] Sodium [Moles/Vol] 136 mmol/L Normal 135-145 [facility] Comment on above: Performed By: #### NATHANIEL RAMÍREZ, HFP ####[facility] (DEFAULT)[address] [place] [address] Urea nitrogen [Mass/Vol] 17 mg/dL Normal 7-25 [facility] Comment on above: Performed By: #### NATHANIEL RAMÍREZ, HFP ####[facility] (DEFAULT)[address] [place] [address] Urea nitrogen/Creatinine [Mass ratio] 14 mg/mg Normal [facility] Comment on above: Performed By: #### NATHANIEL RAMÍREZ, HFP ####[facility] (DEFAULT)[address] [place] [address] Anion gap [Moles/Vol] 12 mmol/L 7 - 17 mmol/L [facility] Chloride [Moles/Vol] 104 mmol/L 98 - 10 8 mmol/L [facility] CO2 [Moles/Vol] 24 mmol/L 21 - 31 mmol/L [facility] Creatinine [Mass/Vol] 1.20 mg/dL 0.70 - 1.30 mg/dL [facility] eGFR, CKD-EPI, Male 73 - PINF [facility] Glucose [Mass/Vol] 112 mg/dL High 70 - 99 mg/dL [facility] Osmolality Calc [Osmolality] 288 [facility] Potassium [Moles/Vol] 4.1 mmol/L 3.5 - 5.0 mmol/L [facility] Sodium [Moles/Vol] 136 mmol/L 135 - 145 mmol/L [facility] Urea nitrogen [Mass/Vol] 17 mg/dL 7 - 25 mg/dL [facility] Urea nitrogen/Creatinine [Mass ratio] 14 mg/mg [facility] CYTOLOGY, NON-GYNOrdered By: Sherice Jimenez on 09-03-2023 CYTOLOGIC DIAGNOSIS j5vwlLQfQLOtgFXdTWEgF3awqgH pSQHubPApG8SrdpbdIDlyKM8iOB 5vwOmrxVPutZIaNREiHqVye8pfc 710aTEqp0zwAWQFmolheZj8p6ux HXMMpJ1dz7y5eS09JSXcpD7dmZG lOZgctwOqTNqqkxJscaSzFfd6EF A8cSydOfviqPI4hDQyxAE0YKuzu 3ImxHyguNlrFTI1FSAwXqwbUDie zXO1oEZdlGxfaFQxHS1tp0clvJT 1coZxJTX0rTszhKS9cNtidgzli6 damWT7fPQ3PSputCR6WSobJmCsZ 2ykFNKeiV2cX93nI1ooAOFhfZjl NRyrSIHviZM2YEI9PZUim4xcCBE mqXJatJIuPhXbLYkjVsx4z1cmKE VfxO20zWCmrbH7tYriEQfqoDP2Y T19VHrwb8AuWZObiHilMLOwnB6e YzIzXGxldmVsbmZjbjIzXGxldmV dvgXxDZthlxDed0WjkrZnsYG9SI qjeePuoXC0cQehMTGtH2Y1E477F RjxyeBtbqChNeLgipl4MKIvuAob bGlzdGxldmVsXGxldmVsbmZjMjN gnUG6ZLaeJbJqUdTzoHB0RBrsZj HudRL4XEdchBDwpAU5RAedfTU5C Fo9LYk2ONgdCUfzBnu4uFkmhAJ6 DIfyzG3wHLHlZ91jRwM7j7wuvDX 4eDM0FUpcdOF4ZSfiGqGtT2kxZJ WpsH7wS82tI4zsESEcpFbtDWqlO CYshOS5KWQ8ADEav0sjZLRnnAOo qMZyRnGrSHcyLbl9u0qcIMQwiT3 7oMCacpH6sZamRC90IGrjo4QmZJ EmmWfbKVMfzL9hVhRkCQwaxcAod mZjbjIzXGxldmVsamMwXGxldmVs s1GwjbSkfUW3RZwguoTafAW0fKp oRLDxN5T4M402EBaaorXefdIrTt Odsfp6MUNfvEqlxAgwzUyuumDuE WhoypBureNiWxJfqYO7RQqaWkCr ShQyhWQ7BLriFlYdaWL7NUydjQF tzNF0IQjwdVF7LPq3UBu2QRzfNS gdJqo1kUtttHG9RPzuyR6yZXWbW 92sQtY7u4npxIX5tHJ4MHbukNF1 MDfjNrEpF4fgRXJhiF9tA92vV9p cTMOxxEqoDParFLJghNF8OLY4AH Wfi2nwPWQleFTieBCpMeCgGKxjJ ew6b0exRHUmtO75cSXkdxD7jBlo IS03XIywd5VcGNZraFkuWXWhsW3 mYzIzXGxldmVsbmZjbjIzXGxldm JxqfGpQJnvuzHrv2XooeQdoNW3R FvlbqJigHI5tTmzYIWbW5D1G786 DLmikvLuwoVfWsMcsti1VSEcsBe cbGlzdGxldmVsXGxldmVsbmZjMj KxjHH0NMmnUmVuHbKpbMT2HDbwG kOcpPK5FOtkdDMnqND1FBocrBG6 IEn9PKk5UTchHDtdHxb2uEohyGV 4TXnzxX4lIJNiC42qKfK5bS50TK nyjQvkxH06SQDhdDNzeXDorVF6C KkbjVdoaT24NLIwqMLdCIqoa5Bz GCYbEjL2CMT0DMUwiMksyB49YHH quZFoQ760wyEdZKqoLC00OKIsrH DftzYwPmZsGNMovBCekCL4MKCxU W6hxpikBUhrNTpkPXZypvE8YZQa bONuQ3NaISAyND4luxslETY6HOe oIBByHRR8PrVlVNBgj4Pavjf7Mf EvaRl6e4jvVNZpABBayCgwp3bvV UG6CUHbpNNnK8yelB6tARCbAP5w cayta5msWWopSTfrEPXznIP6pbF 1NJVwyNMdU3WpkY0rQZLuTDPqnu XcmGhawI5tIhdgmaEhFSRhQFSZQ pRXWs3WZ5tLUGlIRI6AZFLwFCPD HOhEODPDQBCOKGbJY6VTDKvYWoU dZREjCHQpB6qXI6bYP9akJsjnPt NvIJieUOBkLhXiK5IaCCJgzdmoF MHmJMICQD1YNTFDXPDXOm4HQCB9 ZFMkpafldRI0LKwywuRpwVn8jIE ddNhebS6sJexgkeUnQGEyBHZOfo EAOSerI29ghpSbR1UnsZTyIRRjO SewZQ80fPFwZKRcrGSqBGn5yR2j MLewsPuqgpWMyXCuqU4lxzviHNu jZjBccGFyXGxpMFxsczBccGFyfQ == [facility] Work Phone: Case Report [facility] Work Phone: Clinical History s4ahwQAsKDStbSOwFVYf T1vrehC kYKEqwHYdT9OztymcQBvnRG5tXY 1pyDrxvESujFWgPLRfPePfu4yju 845kBJon9ekCATFvwvskIa0aAlc Q84eo6X6ZycbA5gcZEVyPYgoPTZ yEKsmnMVcINx0UFGieWPitvTmGz QjLFHrmONjqFZ7TSRaZX4ltxtxC GcaFGxvLRPzrvP7LENpzNSzE7Cl RCOzNV0dbjsiLVZ3UIvaKYNfEWX 9NjQnOISsq1Jksac5VrVwmYi6g1 gwOJLsCSOtgOjsa4guYUT4QYGst JKtA7egwM7hNLOgGH7rawzcs9zm DOntMEheVOAanVJ9niN4AJGhuNQ wV5AecY3rTBVuGCGpzeCguRpckB 5cZnMyMFxjZjEgUmVuYWwgdHJhb wTjpFTrgQ2wEJTvyp2= [facility] Work Phone: For Immediate Release to Patient's MyChart? Yes Yes [facility] Work Phone: Gross Description b3incMCrMFBymQUxFQHw K7mfenK jRCNytJCsE7YcamxbAXnqJK2oVF 9fwGqzbZBhoZKbRZTfMsYog3jlj 612cURws1kaNLTDovltzNu3iJfv B10ix6N0EianV90uzGQtEFZ5OAX vGYOyaBKwHRNpFRU9AWJbbYTvS4 guHHRaZD8wcebkLTjmWHzqIPEkl SO1NHTkdWEhY1XcNAQwWAdbOMMj usu2HdEsWh4npJErwCxwEFpfAZH kXHBsYWluXGZzMjAgTExMIEJBTF vlCERwVHWbkJBvWPe6WXDlvM3kj BAbubQybQZahI4bqWjmQSzyZVZl JQHDRFPuuJrhCENELQQpf8ZmvE3 ccGFyXHBhcmRccGFyXHBhcn0= [facility] Work Phone: [facility] Work Phone: HEPATIC FUNCTION PANELon Albumin [Mass/Vol] 3.2 g/dL Low 3.5-5.0 [facility] Comment on above: Performed By: #### NATHANIEL RAMÍREZ, HFP ####[facility] (DEFAULT)[address] [place] [address] ALP [Catalytic activity/Vol] 118 U/L Normal 32-126 [facility] Comment on above: Performed By: #### NATHANIEL RAMÍREZ, HFP ####[facility] (DEFAULT)[address] [place] [address] ALT [Catalytic activity/Vol] 25 U/L Normal 10-52 [facility] Comment on above: Performed By: #### NATHANIEL RAMÍREZ, HFP ####[facility] (DEFAULT)[address] [place] [address] AST [Catalytic activity/Vol] 32 U/L Normal 10-39 [facility] Comment on above: Performed By: #### M TJ BLOOM7, HFP ####[facility] (DEFAULT)[address] [place] [address] Bilirubin [Mass/Vol] 1.0 mg/dL Normal <1.5 [facility] Comment on above: Performed By: #### M NATHAINEL BLOOM, HFP ####[facility] (DEFAULT)[address] [place] [address] Bilirubin.indirect [Mass/Vol] 0.3 mg/dL High <0.3 [facility] Comment on above: Performed By: #### NATHANIEL RAMÍREZ, HFP ####[facility] (DEFAULT)[address] [place] [address] Protein [Mass/Vol] 6.5 g/dL Normal 6.4-8.3 [facility] Comment on above: Performed By: #### NATHANIEL RAMÍREZ, HFP ####[facility] (DEFAULT)[address] [place] [address] Albumin [Mass/Vol] 3.2 g/dL Low 3.5 - 5.0 g/dL [facility] ALP [Catalytic activity/Vol] 118 U/L 32 - 126 U/L [facility] ALT [Catalytic activity/Vol] 25 U/L 10 - 52 U/L [facility] AST [Catalytic activity/Vol] 32 U/L 10 - 39 U/L [facility] Bilirubin [Mass/Vol] 1.0 mg/dL NINF - 1.5 mg/dL [facility] Bilirubin.direct [Mass/Vol] 0.3 mg/dL High NINF - 0.3 mg/dL [facility] Protein [Mass/Vol] 6.5 g/dL 6.4 - 8.3 g/dL [facility] HISTOPLASMA AND BLASTOMYCES ANTIGEN, ENZYME IMMUNOASSAY, SERMon 09-03-2023 Histoplasma/Blastomy antonia Ag Result Detected Critically abnormal Not Detected [facility] Histoplasma/Blastomy antonia Ag Value 5.3 ng/mL [facility] Interpretation and review of laboratory results Abnormal [facility] IMMUNOPHENOTYPING, TISSUE/FL UIDon 09-03-2023 BKR DX CODE Use Ordering Normal [facility] Comment on above: Order Comment: Pleas e lab add on to specimen collected yesterdayIMMUNOPHENOTYPING DIAGNOSISPATIENT NAME: GEORGE SLATER: 1970MRN: [id number]#: [id number] BY: Yossi Perla M.D,, Ph.D. [id number] TYPE: Bronchial Alveolar LavageLABORATORY INTERPRETATION:There is no [...] performance characteristicsdetermined The Flow Cytometry Laboratory at [facility]. It has notbeen cleared or approved by the FDA. This laboratory is certifiedunder the Clinical Laboratory Improvement Amendments (CLIA)as qualified to perform high complexity clinical laboratorytesting. This test is used for clinical purposes. It should notbe regarded as investigational or for research.The [facility] Flow Cytometry Laboratory lower limitof CLL MRD detection is 0.1% of the gated lymphocytes. Performed By: #### G IP ####[facility] ([facility])[address] [place] [address] Flow Interpretation See Comment Normal [facility] Comment on above: Order Comment: Pleas e lab add on to specimen collected yesterdayIMMUNOPHENOTYPING DIAGNOSISPATIENT NAME: GEORGE SLATER: 1970MRN: [id number]#: [id number] BY: Yossi Perla M.D,, Ph.D. [id number] TYPE: Bronchial Alveolar LavageLABORATORY INTERPRETATION:There is no [...] performance characteristicsdetermined The Flow Cytometry Laboratory at [facility]. It has notbeen cleared or approved by the FDA. This laboratory is certifiedunder the Clinical Laboratory Improvement Amendments (CLIA)as qualified to perform high complexity clinical laboratorytesting. This test is used for clinical purposes. It should notbe regarded as investigational or for research.[facility] Flow Cytometry Laboratory lower limitof CLL MRD detection is 0.1% of the gated lymphocytes. Performed By: #### G IPP ####[facility] ([facility])[address] [place] [address] Flow Interpreted by: Yossi Perla MD, PhD Normal [facility] Comment on above: Order Comment: Pleas e lab add on to specimen collected yesterdayIMMUNOPHENOTYPING DIAGNOSISPATIENT NAME: GEORGE SLATER: 1970MRN: [id number]#: [id number] BY: Yossi Perla M.D,, Ph.D. [id number] TYPE: Bronchial Alveolar LavageLABORATORY INTERPRETATION:There is no [...] performance characteristicsdetermined The Flow Cytometry Laboratory at [facility]. It has notbeen cleared or approved by the FDA. This laboratory is certifiedunder the Clinical Laboratory Improvement Amendments (CLIA)as qualified to perform high complexity clinical laboratorytesting. This test is used for clinical purposes. It should notbe regarded as investigational or for research.[facility] Flow Cytometry Laboratory lower limitof CLL MRD detection is 0.1% of the gated lymphocytes. Performed By: #### G IPP ####[facility] (DEFAULT)[address] [place] [address] MAGNESIUMon 09-03-2023 Magnesium [Mass/Vol] 1.6 mg/dL Normal 1.6-2.6 [facility] Comment on above: Performed By: #### M GO, CHM7, [facility] HOSPITAL ####[facility] (DEFAULT)[address] [place] [address] Interpretation and review of laboratory results Normal [facility] Magnesium [Mass/Vol] 1.6 mg/dL 1.6 - 2 .6 mg/dL [facility] No Panel Informationon 09-03 Interpretation and review of laboratory results Abnormal [facility] PARVOVIRUS (B19) DNA, PCR, B LOODon 10-05-2023 PARVOVIRUS B19 BY RAPID PCR Not detected Not Detected [facility] NM SPEC SOURCE Whole Blood [facility] Portable XR Chest Viewson RADIOLOGY RADIOLOGY [facility] Radiology Study observation (narrative) [facility] Portable XR Chest ViewsOrder ed By: [place] on 09-03-2023 [facility] Work Phone: XR CHEST PORTABLEon 09-03-20 23 XR CHEST PORTABLE Normal [facility] ACID FAST CULTUREon 09-02-20 23 Bacteria identified Cx Nom (Unsp spec) NO GROWTH DAY 42 OF 42 Normal [facility] Comment on above: Performed By: #### A FB ####[facility] (DEFAULT)[address] [facility] [place] [address] Fluorochrome Stain No acid Fast Bacillus Seen Normal [facility] Comment on above: Performed By: #### A FB ####[facility] (DEFAULT)[address] [place] [address] Bacteria identified Cx Nom (Unsp spec) NO GROWTH DAY 42 OF 42 Normal [facility] Comment on above: Order Comment: BAL A FB culture. Clinical suspicion for non-tuberculous mycobacteria Performed By: #### A FB ####[facility] (DEFAULT)[address] [place] [address] Fluorochrome Stain No acid Fast Bacillus Seen Normal [facility] Comment on above: Order Comment: BAL A FB culture. Clinical suspicion for non-tuberculous mycobacteria Performed By: #### A FB ####[facility] (DEFAULT)[address] [facility] [place] [address] ASPERGILLUS (GALACTOMANNAN), ANTIGENon 09-02-2023 Galactomannan Ag IA Qn <0.500 NINF [facility] ASPERGILLUS ANTIGEN, BALon 1 Aspergillus Galactomannan Antigen, BAL <0.500 Normal <0.5 [facility] Comment on above: Result Comment: ---- ADDITIONAL INFORMATION This is a qualitative test and the resulted index value isnot indicative of disease severity. Serial testing isrecommended for patients at high risk for invasiveaspergillosis.This assay was performed using the FDA-cleared [employer] Aspergillus Galactomannan EIA.Test Performed by:[address] Director: Rosendo Bose M.D. Ph.D.; CLIA# [id number] Performed By: #### X ASGFL ####[facility] (DEFAULT)[address] [address] Aspergillus Galactomannan Antigen, BAL <0.500 Normal <0.5 [facility] Comment on above: Order Comment: BAL a spirgillus antigen Result Comment: ---- ADDITIONAL INFORMATION This is a qualitative test and the resulted index value isnot indicative of disease severity. Serial testing isrecommended for patients at high risk for invasiveaspergillosis.This assay was performed using the FDA-cleared [employer] Aspergillus Galactomannan EIA.Test Performed by:[place] [id number] Director: Rosendo Bose M.D. Ph.D.; CLIA# [id number] Performed By: #### X ASGFL ####[facility] (DEFAULT)[address] [place] [address] ATYPICAL BACTERIAL PNEUMONIA ,PCROrdered By: Shari Contreras on 09-02-2023 B. parapertussis DNA ESTELITA+probe Ql (Unsp spec) Not detected Not Detected [facility] B. pertussis DNA ESTELITA+probe Ql (Unsp spec) Not detected Not Detected [facility] C. pneumoniae DNA ESTELITA+probe Ql (Unsp spec) Not detected Not Detected [facility] Interpretation and review of laboratory results Normal [facility] M. pneumoniae DNA ESTELITA+probe Ql (Unsp spec) Not detected Not Detected [facility] ATYPICAL BACTERIAL PNEUMONIA ,PCRon 09-02-2023 Bordetella Parapertussis Not detected Normal Not Detected [facility] Comment on above: Order Comment: Viral transport [...] [facility]. It has not been cleared or approved by the FDA. The laboratory is required under CLIA as qualified to perform high-complexity testing. This test is used for clinical purposes. It should not be regarded as investigational or for research. Performed By: #### A TYPNE ####[facility] (DEFAULT)[address] [address] Bordetella Pertussis Not detected Normal Not Detected [facility] Comment on above: Order Comment: Viral transport [...] [facility]. It has not been cleared or approved by the FDA. The laboratory is required under CLIA as qualified to perform high-complexity testing. This test is used for clinical purposes. It should not be regarded as investigational or for research. Performed By: #### A TYPNE ####[facility] (DEFAULT)[address] [place] [address] Chlamydia Pneumoniae Not detected Normal Not Detected [facility] Comment on above: Order Comment: Viral transport [...] [facility]. It has not been cleared or approved by the FDA. The laboratory is required under CLIA as qualified to perform high-complexity testing. This test is used for clinical purposes. It should not be regarded as investigational or for research. Performed By: #### A TYPNE ####[facility] (DEFAULT)[address] [address] Mycoplasma Pneumoniae Not detected Normal Not Detected [facility] Comment on above: Order Comment: Viral transport [...] [facility]. It has not been cleared or approved by the FDA. The laboratory is required under CLIA as qualified to perform high-complexity testing. This test is used for clinical purposes. It should not be regarded as investigational or for research. Performed By: #### A TYPNE ####[facility] (DEFAULT)[address] [place] [address] BAL CONSULTon 09-02-2023 ALVEOLAR MACROPHAGES 33 % Normal [facility] Comment on above: Order Comment: BAL c onsultIf > 15% lymphocytes - please send for flow. Performed By: #### B ALC ####[facility] (DEFAULT)[address] [address] Bal comments Correlation with microbiology stains and cultures is recommended. Correlation with viral studies is recommended. Normal [facility] Comment on above: Order Comment: BAL c onsultIf > 15% lymphocytes - please send for flow. Performed By: #### B ALC ####[facility] (DEFAULT)[address] [facility] [address] Bal Diff Quik Stain Quality Check Acceptable Normal [facility] Comment on above: Order Comment: BAL c onsultIf > 15% lymphocytes - please send for flow. Performed By: #### B ALC ####[facility] (DEFAULT)[address] [place] [address] Bal Reviewed By: Leonardo Peralta MD [facility] Comment on above: Order Comment: BAL c onsultIf > 15% lymphocytes - please send for flow. Performed By: #### B ALC ####[facility] (DEFAULT)[address] [place] [address], [place] [address] BKR BAL INTERPRETATION Cellular specimen comprised of alveolar macrophages and small lymphocytes. No definitive microorganisms are observed. Rare degenerating cells with changes suggestive of viral cytopathic effect are noted. Moderate degenerative changes. Normal [facility] Comment on above: Order Comment: BAL c onsultIf > 15% lymphocytes - please send for flow. Performed By: #### B ALC ####[facility] (DEFAULT)[address] [place] [address] BKR DX CODE Use Ordering Normal [facility] Comment on above: Order Comment: BAL c onsultIf > 15% lymphocytes - please send for flow. Performed By: #### B ALC ####[facility] (DEFAULT)[address] [place] [address], [place] [address] Eosinophils/100 WBC (Bld) 0 % Normal [facility] Comment on above: Order Comment: BAL c onsultIf > 15% lymphocytes - please send for flow. Performed By: #### B ALC ####[facility] (DEFAULT)[address] [place] [address] [place] [address] Lymphocytes/100 WBC (Bld) 49 % Normal [facility] Comment on above: Order Comment: BAL c onsultIf > 15% lymphocytes - please send for flow. Performed By: #### B ALC ####[facility] (DEFAULT)[address] [facility] [place] [address] Neutrophils/100 WBC (Bld) 18 % Normal [facility] Comment on above: Order Comment: BAL c onsultIf > 15% lymphocytes - please send for flow. Performed By: #### B ALC ####[facility] (DEFAULT)[address] [facility] [place] [address] ALVEOLAR MACROPHAGES 32 % Normal [facility] Comment on above: Order Comment: BAL c onsult for cell differential and pathologist review. Please do flow cytometry if > 12% lymphocytes Performed By: #### B ALC ####[facility] (DEFAULT)[address] [facility] [address] Bal comments Correlation with microbiology stains and cultures is recommended. Normal [facility] Comment on above: Order Comment: BAL c onsult for cell differential and pathologist review. Please do flow cytometry if > 12% lymphocytes Performed By: #### B ALC ####[facility] (DEFAULT)[address] [facility] [place] [address] Bal Diff Quik Stain Quality Check Acceptable Normal [facility] Comment on above: Order Comment: BAL c onsult for cell differential and pathologist review. Please do flow cytometry if > 12% lymphocytes Performed By: #### B ALC ####[facility] (DEFAULT)[address] [facility] [address] Bal Reviewed By: Leonardo Peralta MD Normal [facility] Comment on above: Order Comment: BAL c onsult for cell differential and pathologist review. Please do flow cytometry if > 12% lymphocytes Performed By: #### B ALC ####[facility] (DEFAULT)[address] [place] [address], [place] [address] BKR BAL INTERPRETATION Cellular specimen comprised of alveolar macrophages and small lymphocytes. No definitive microorganisms are observed. Moderate degenerative changes. Normal [facility] Comment on above: Order Comment: BAL c onsult for cell differential and pathologist review. Please do flow cytometry if > 12% lymphocytes Performed By: #### B ALC ####[facility] (DEFAULT)[address] [place] [address] BKR DX CODE Use Ordering Normal [facility] Comment on above: Order Comment: BAL c onsult for cell differential and pathologist review. Please do flow cytometry if > 12% lymphocytes Performed By: #### B ALC ####[facility] (DEFAULT)[address] [facility] [place] [address] Eosinophils/100 WBC (Bld) 0 % Normal [facility] Comment on above: Order Comment: BAL c onsult for cell differential and pathologist review. Please do flow cytometry if > 12% lymphocytes Performed By: #### B ALC ####[facility] (DEFAULT)[address] [facility] [place] [address] Lymphocytes/100 WBC (Bld) 57 % Normal [facility] Comment on above: Order Comment: BAL c onsult for cell differential and pathologist review. Please do flow cytometry if > 12% lymphocytes Performed By: #### B ALC ####[facility] (DEFAULT)[address] [facility] [address] Neutrophils/100 WBC (Bld) 11 % Normal [facility] Comment on above: Order Comment: BAL c onsult for cell differential and pathologist review. Please do flow cytometry if > 12% lymphocytes Performed By: #### B ALC ####[facility] (DEFAULT)[address] [facility] [address] BRONCHOSCOPYon 09-02-2023 Radiology Study observation (narrative) [facility] Bacteria identified Cx Nom ( Bld)on 09-02-2023 Bacteria identified Cx Nom (Unsp spec) NO GROWTH DAY 5 OF 5 [facility] CBC,PLATELETSon 09-02-2023 Hematocrit (Bld) [Volume fraction] 39.9 % Normal 39.6-48.8 [facility] Comment on above: Performed By: #### H EMOGC ####[facility] (DEFAULT)[address] [facility] [address] Hemoglobin (Bld) [Mass/Vol] 12.9 g/dL Low 13.4-16.8 [facility] Comment on above: Performed By: #### H EMOGC ####[facility] (DEFAULT)[address] [facility] [place] [address] MCV (RBC) [Entitic vol] 86.4 fL Normal 79.0-94.5 [facility] Comment on above: Performed By: #### H EMOGC ####[facility] (DEFAULT)[address] [facility] [place] [address] Mean Cell Hgb 27.9 pg Normal 26.1-33.3 [facility] Comment on above: Performed By: #### H EMOGC ####[facility] (DEFAULT)[address] [facility] [place] [address] Mean Cell Hgb Conc 32.3 g/dL Normal 31.9-36.5 [facility] Comment on above: Performed By: #### H EMOGC ####[facility] (DEFAULT)[address] [facility] [place] [address] Platelet mean volume (Bld) [Entitic vol] 9.5 fL Normal 8.7-12.3 [facility] Comment on above: Performed By: #### H EMOGC ####[facility] (DEFAULT)[address] [facility] [place] [address] Platelets (Bld) [#/Vol] 210 10*3/uL Normal 146-337 [facility] Comment on above: Performed By: #### H EMOGC ####[facility] (DEFAULT)[address] [facility] [address] RBC (Bld) [#/Vol] 4.62 10*6/uL Normal 4.38-5.83 [facility] Comment on above: Performed By: #### H EMOGC ####[facility] (DEFAULT)[address] [facility] [place] [address] RBC Distribution 13.2 % Normal 10.9-14.3 [facility] Comment on above: Performed By: #### H [facility] ####[facility] (DEFAULT)[address] [place] [address] WBC (Bld) [#/Vol] 4.12 10*3/uL Normal 3.73-10.10 [facility] Comment on above: Performed By: #### H [facility] ####[facility] (DEFAULT)[address] [place] [address] Erythrocyte distribution width (RBC) [Ratio] 13.2 % 10.9 - 14.3 % [facility] Hematocrit (Bld) [Volume fraction] 39.9 % 39.6 - 48.8 % [facility] Hemoglobin (Bld) [Mass/Vol] 12.9 g/dL Low 13.4 - 16.8 g/dL [facility] Interpretation and review of laboratory results Abnormal [facility] MCH (RBC) [Entitic mass] 27.9 pg 26.1 - 33.3 pg [facility] MCHC (RBC) [Mass/Vol] 32.3 g/dL 31.9 - 36.5 g/dL [facility] MCV (RBC) [Entitic vol] 86.4 fL 79.0 - 94.5 fL [facility] Platelet mean volume (Bld) [Entitic vol] 9.5 fL 8.7 - 12.3 fL [facility] Platelets (Bld) [#/Vol] 210 10*3/uL 146 - 337 K/uL [facility] RBC (Bld) [#/Vol] 4.62 10*6/uL [facility] WBC (Bld) [#/Vol] 4.12 10*3/uL 3.73 - 10. 10 K/uL [facility] CHEM 7 (LYTES,BUN,CREA,GLUC) on 09-02-2023 Anion gap [Moles/Vol] 13 mmol/L Normal 7-17 [facility] Comment on above: Performed By: #### H ANTWAN MGRogelio CHM7 ####[facility] (DEFAULT)[address] [facility] [place] [address] Chloride [Moles/Vol] 105 mmol/L Normal 98-108 [facility] Comment on above: Performed By: #### H ANTWAN MGO CHM7 ####[facility] (DEFAULT)[address] [facility] [place] [address] CO2 [Moles/Vol] 22 mmol/L Normal 21-31 [facility] Comment on above: Performed By: #### H ANTWAN MGHELEN MercadoM7 ####[facility] (DEFAULT)[address] [facility] [place] [address] Creatinine [Mass/Vol] 1.25 mg/dL Normal 0.70-1.30 [facility] Comment on above: Performed By: #### H ANTWAN MGHELEN MercadoMJessica ####[facility] (DEFAULT)[address] [place] [address] GFR/1.73 sq M.predicted among non-blacks MDRD (S/P/Bld) [Vol rate/Area] 69 mL/min/{1.73_m2} Normal >=60 [facility] Comment on above: Result Comment: Repo rted eGFR is based on the CKD-EPI 2020 equation using creatinine, age, and sex. Performed By: #### H DOMENICA MONCADA CHM7 ####[facility] (DEFAULT)[address] [place] [address] Glucose [Mass/Vol] 105 mg/dL High 70-99 [facility] Comment on above: Performed By: #### H ANTWAN MGRogelio CHM7 ####[facility] (DEFAULT)[address] [facility] [place] [address] Osmolality [Osmolality] 287 mosm/kg Normal 278-305 [facility] Comment on above: Performed By: #### H ANTWAN MGO CHM7 ####[facility] (DEFAULT)[address] [facility] [place] [address] Potassium [Moles/Vol] 4.3 mmol/L Normal 3.5-5.0 [facility] Comment on above: Performed By: #### H ANTWAN MGO, CHM7 ####[facility] (DEFAULT)[address] [place] [address] Sodium [Moles/Vol] 136 mmol/L Normal 135-145 [facility] Comment on above: Performed By: #### H ANTWAN MGO, CHM7 ####[facility] (DEFAULT)[address] [facility] [place] [address] Urea nitrogen [Mass/Vol] 16 mg/dL Normal 7-25 [facility] Comment on above: Performed By: #### H ANTWAN MGO, CHM7 ####[facility] (DEFAULT)[address] [facility] [address] Urea nitrogen/Creatinine [Mass ratio] 13 mg/mg Normal [facility] Comment on above: Performed By: #### H ANTWAN MGO, CHM7 ####[facility] (DEFAULT)[address] [facility] [address] Anion gap [Moles/Vol] 13 mmol/L 7 - 17 mmol/L [facility] Chloride [Moles/Vol] 105 mmol/L 98 - 10 8 mmol/L [facility] CO2 [Moles/Vol] 22 mmol/L 21 - 31 mmol/L [facility] Creatinine [Mass/Vol] 1.25 mg/dL 0.70 - 1.30 mg/dL [facility] eGFR, CKD-EPI, Male 69 - PINF [facility] Glucose [Mass/Vol] 105 mg/dL High 70 - 99 mg/dL [facility] Osmolality Calc [Osmolality] 287 [facility] Potassium [Moles/Vol] 4.3 mmol/L 3.5 - 5.0 mmol/L [facility] Sodium [Moles/Vol] 136 mmol/L 135 - 145 mmol/L [facility] Urea nitrogen [Mass/Vol] 16 mg/dL 7 - 25 mg/dL [facility] Urea nitrogen/Creatinine [Mass ratio] 13 mg/mg [facility] CMV PCR,FLUIDS,URINE,EYE ETC on 09-02-2023 CMV by PCR Result Negative Normal Negative [facility] Comment on above: Result Comment: ---- ADDITIONAL INFORMATION This test was developed and its performance characteristicsdetermined by [facility] in a manner consistent with CLIArequirements. This test has not been cleared or approved bythe U.S. Food and Drug Administration.Test Performed by:[address] Director: Rosendo Bose M.D. Ph.D.; CLIA# [id number] Performed By: #### Y CMV ####[facility] (DEFAULT)[address] [place] [address] CMV BY PCR SOURCE BAL RML Normal [facility] Comment on above: Performed By: #### Y CMV ####[facility] (DEFAULT)[address] [place] [address] CMV by PCR Result Negative Normal Negative [facility] Comment on above: Result Comment: ---- ADDITIONAL INFORMATION This test was developed and its performance characteristicsdetermined by [facility] in a manner consistent with CLIArequirements. This test has not been cleared or approved bythe U.S. Food and Drug Administration.Test Performed by:[address] [id number] Director: Rosendo Bose M.D. Ph.D.; CLIA# [id number] Performed By: #### Y CMV ####[facility] (DEFAULT)[address] [facility] [address] CMV BY PCR SOURCE BAL LLL Normal [facility] Comment on above: Performed By: #### Y CMV ####[facility] (DEFAULT)[address] [facility] [address] CYTOLOGY, NON-GYNon 09-02-20 CYTOLOGIC DIAGNOSIS Normal [facility] Comment on above: Result Comment: A. B RONCHOALVEOLAR LAVAGE, LEFT LOWER LOBE (CYTOLOGY):FINAL DIAGNOSIS:No Malignant Cells Are IdentifiedHypocellular Specimen Performed By: #### N ONGNGRAEMEFNA ####[facility] (DEFAULT)[address] [place] [address] Case Report Normal [facility] Comment on above: Result Comment: Medi abhishek Cytology Report Case: [id number] Provider: Crow Diaz MD Collected: 09/02/2023 08:38 AMOrdering Location: [facility] Received: 09/02/2023 10:44 AMPathologist: KENTON Caglepecimen: BRONCHOALVEOLAR LAVAGE, LLL BAL Performed By: #### N ONGNNONFNA ####[facility] (DEFAULT)[address] [place] [address] Clinical History Renal transplant. Normal [facility] Comment on above: Performed By: #### N ONGNNONFNA ####[facility] (DEFAULT)[address] [place] [address] Gross Description Normal [facility] Comment on above: Result Comment: LLL BAL1 ml hazy colorless fld unfixed1 TP slide Pap stainFor Immediate Release to Patient's MyChart? Yes Performed By: #### N ONGNNONFNA ####[facility] (DEFAULT)[address] [place] [address] FUNGUS CULTUREon 09-02-2023 Bacteria identified Cx Nom (Unsp spec) Normal [facility] Comment on above: Order Comment: Ident ification was performed on the MALDI-TOF mass spectrometer [employer]. This test was developed by [facility]. It has not been cleared or approved by the FDA. The laboratory is regulated under CLIA as qualified to perform high-complexity testing. This test is used for clinical purposes. It should not be regarded as investigational or for research. Result Comment: Grow [id number] Lakin Histoplasma capsulatum Performed By: #### F UN ####[facility] (DEFAULT)[address] [facility] [place] [address] Bacteria identified Cx Nom (Unsp spec) NO GROWTH DAY 28 OF 28 Normal [facility] Comment on above: Order Comment: BAL f ungal culture Performed By: #### F UN ####[facility] (DEFAULT)[address] [facility] [address] HEPATIC FUNCTION PANELon Albumin [Mass/Vol] 3.2 g/dL Low 3.5-5.0 [facility] Comment on above: Performed By: #### H FP MGO, CHM7 ####[facility] (DEFAULT)[address] [facility] [address] ALP [Catalytic activity/Vol] 107 U/L Normal 32-126 [facility] Comment on above: Performed By: #### H FP, MGO, CHM7 ####[facility] (DEFAULT)[address] [facility] [address] ALT [Catalytic activity/Vol] 20 U/L Normal 10-52 [facility] Comment on above: Performed By: #### H FP, MGO, CHM7 ####[facility] (DEFAULT)[address] [facility] [place] [address] AST [Catalytic activity/Vol] 31 U/L Normal 10-39 [facility] Comment on above: Performed By: #### H FP, MGO, CHM7 ####[facility] (DEFAULT)[address] [place] [address] Bilirubin [Mass/Vol] 1.0 mg/dL Normal <1.5 [facility] Comment on above: Performed By: #### H FP, MGO, CHM7 ####[facility] (DEFAULT)[address] [place] [address] Bilirubin.indirect [Mass/Vol] 0.3 mg/dL High <0.3 [facility] Comment on above: Performed By: #### H FP, MGO, CHM7 ####[facility] (DEFAULT)[address] [facility] [address] Protein [Mass/Vol] 6.6 g/dL Normal 6.4-8.3 [facility] Comment on above: Performed By: #### H FP, MGO, CHM7 ####[facility] (DEFAULT)[address] [facility] [place] [address] Albumin [Mass/Vol] 3.2 g/dL Low 3.5 - 5.0 g/dL [facility] ALP [Catalytic activity/Vol] 107 U/L 32 - 126 U/L [facility] ALT [Catalytic activity/Vol] 20 U/L 10 - 52 U/L [facility] AST [Catalytic activity/Vol] 31 U/L 10 - 39 U/L [facility] Bilirubin [Mass/Vol] 1.0 mg/dL NINF - 1.5 mg/dL [facility] Bilirubin.direct [Mass/Vol] 0.3 mg/dL High NINF - 0.3 mg/dL [facility] Protein [Mass/Vol] 6.6 g/dL 6.4 - 8.3 g/dL [facility] HISTOPLASMA ANTIGEN, FLUIDon 09-02-2023 FH SOURCE BAL RML Normal [facility] Comment on above: Performed By: #### Y FHST ####[facility] (DEFAULT)[address] [place] [address], [place] [address] Histo FLD interpretation Negative Normal [facility] Comment on above: Result Comment: ---- ADDITIONAL INFORMATION Reference interval: None DetectedReportable Range: Positive Results reported in ng/mL from0.20 ng/mL to 20.00 ng/mLPositive Results above 20.00 ng/mL are reported as 'Abovethe Limit of Quantification'Cross-reactions occur with Blastomyces spp., Coccidioidesspp., and Paracoccidioides brasiliensis.This test was developed and its performance characteristicsdetermined by [facility]. It has not beencleared or approved by the FDA; however, FDA clearance orapproval is not currently required for clinical use. Theresults are not intended to be used as the sole means forclinical diagnosis or patient management decisions.Test Performed by:[facility] [place] [address] [place] [address] Performed By: #### Y ST ####[facility] (DEFAULT)[address] [place] [address] Histoplasma Antigen, FLUID Not detected Normal [facility] Comment on above: Performed By: #### Y FHST ####[facility] (DEFAULT)[address] [place] [address] HISTOPLASMA ANTIGEN,URINEon 09-02-2023 H. capsulatum Ag (U) [Mass/Vol] Not detected ng/mL [facility] H. capsulatum Ag IA Ql (U) Not detected Not Detected [facility] HISTOPLASMA CAPSULATUM/BLAST OMYCES SPECIES,PCR FLUIDon 09-02-2023 HISTO/BLASTO RESULT Negative Normal Not Applicable [facility] Comment on above: Result Comment: A Ne gative result from BAL fluid does not rule out thepresence of Histoplasma capsulatum because the sensitivity from this source is suboptimal. ADDITIONAL INFORMATION This test was developed and its performance characteristicsdetermined by [facility] in a manner consistent with CLIArequirements. This test has not been cleared or approved bythe U.S. Food and Drug Administration.Test Performed by:[address] [address]Ymd Director: Rosendo Bose M.D. Ph.D.; CLIA# [id number] Performed By: #### Y HBRP ####[facility] (DEFAULT)[address] [place] [address] Source BAL RML Normal [facility] Comment on above: Performed By: #### Y HBRP ####[facility] (DEFAULT)[address] [place] [address] HIV 1 AND 2 ANTIBODIES/P24 A NTIGENOrdered By: Wilma Luque on 09-02-2023 HIV 1+2 Ab+HIV1 p24 Ag IA Ql Non-Reactive Non Reactive [facility] Interpretation and review of laboratory results Normal [facility] HIV 1 AND 2 ANTIBODIES/P24 A NTIGENon 09-02-2023 HIV-1/HIV-2 Ab With p24 Antigen Non-Reactive Normal Non Reactive [facility] Comment on above: Performed By: #### L [id number] ####[facility] (DEFAULT)[address] [place] [address] LEGIONELLA CULTUREon 023 Bacteria identified Cx Nom (Unsp spec) NO GROWTH DAY 7 OF 7 Normal [facility] Comment on above: Performed By: #### L EGN ####[facility] (DEFAULT)[address] [place] [address] Bacteria identified Cx Nom (Unsp spec) NO GROWTH DAY 7 OF 7 [facility] Comment on above: Order Comment: BAL l egionella culture Performed By: #### L EGN ####[facility] (DEFAULT)[address] [place] [address] LEGIONELLA PCRon 09-02-2023 Legionella species, Culture BAL RML Normal [facility] Comment on above: Performed By: #### Y LEGRP ####[facility] (DEFAULT)[address] [place] [address] Legionella, pcr result Negative Normal Not Applicable [facility] Comment on above: Result Comment: ---- ADDITIONAL INFORMATION This test was developed and its performance characteristicsdetermined by [facility] in a manner consistent with CLIArequirements. This test has not been cleared or approved bythe U.S. Food and Drug Administration.Test Performed by:[address] [address]Aei Director: Rosendo Bose M.D. Ph.D.; CLIA# [id number] Performed By: #### Y LEGRP ####[facility] (DEFAULT)[address] [facility] [address] LOWER RESPIRATORY CULTURE, B ACTERIALon 09-02-2023 Bacteria identified Cx Nom (Unsp spec) NO GROWTH DAY 2 OF 2 Normal [facility] Comment on above: Performed By: #### R ES ####[facility] (DEFAULT)[address] [facility] [address] Microscopic observation Gram stain Nom (Unsp spec) [facility] Comment on above: Result Comment: Cyto centrifuge preparationNeutrophils, RareRed Blood Cells PresentNo organisms seen Performed By: #### R ES ####[facility] (DEFAULT)[address] [facility] [place] [address] Bacteria identified Cx Nom (Unsp spec) NO GROWTH DAY 2 OF 2 Normal [facility] Comment on above: Order Comment: BAL b acterial respiratory culture Performed By: #### R ES ####[facility] (DEFAULT)[address] [facility] [place] [address] Microscopic observation Gram stain Nom (Unsp spec) Normal [facility] Comment on above: Order Comment: BAL b acterial respiratory culture Result Comment: Cyto centrifuge preparationNeutrophils, ModerateRed Blood Cells PresentNo organisms seen Performed By: #### R ES ####[facility] (DEFAULT)[address] [facility] [address] MAGNESIUMon 09-02-2023 Magnesium [Mass/Vol] 1.7 mg/dL Normal 1.6-2.6 [facility] Comment on above: Performed By: #### H FP, MGO, CHM7 ####[facility] (DEFAULT)[address] [facility] [address] Interpretation and review of laboratory results Normal [facility] Magnesium [Mass/Vol] 1.7 mg/dL 1.6 - 2 .6 mg/dL [facility] No Panel Informationon 09-02 Interpretation and review of laboratory results Abnormal [facility] PNEUMOCYSTIS JIROVECI,PCRon 09-02-2023 PN Report Status DNR Normal [facility] Comment on above: Performed By: #### Y PNRP ####[facility] (DEFAULT)[address] [place] [address] PN Specimen Source BAL RML Normal [facility] Comment on above: Performed By: #### Y PNRP ####[facility] (DEFAULT)[address] [place] [address] Pneum jiroveci comment DNR Normal [facility] Comment on above: Performed By: #### Y PNRP ####[facility] (DEFAULT)[address] [facility] [address] Pneumocystis jiroveci,PCR result Negative Normal Not Applicable [facility] Comment on above: Result Comment: ---- ADDITIONAL INFORMATION This test was developed and its performance characteristicsdetermined by [facility] in a manner consistent with CLIArequirements. This test has not been cleared or approved bythe U.S. Food and Drug Administration.Test Performed by:[address] [address]Vlt Director: Rosendo Bose M.D. Ph.D.; CLIA# [id number] Performed By: #### Y PNRP ####[facility] (DEFAULT)[address] [place] [address], [place] [address] PN Report Status DNR Normal [facility] Comment on above: Performed By: #### Y PNRP ####[facility] (DEFAULT)[address] [place] [address], [place] [address] PN Specimen Source BAL LLL Normal [facility] Comment on above: Performed By: #### Y PNRP ####[facility] (DEFAULT)[address] [place] [address], [place] [address] Pneum jiroveci comment DNR Normal [facility] Comment on above: Performed By: #### Y PNRP ####[facility] (DEFAULT)[address] [facility] [address] Pneumocystis jiroveci,PCR result Negative Normal Not Applicable [facility] Comment on above: Result Comment: ---- ADDITIONAL INFORMATION This test was developed and its performance characteristicsdetermined by [facility] in a manner consistent with CLIArequirements. This test has not been cleared or approved bythe U.S. Food and Drug Administration.Test Performed by:[address] [address]Zho Director: Rosendo Bose M.D. Ph.D.; CLIA# [id number] Performed By: #### Y PNRP ####[facility] (DEFAULT)[address] [place] [address], [place] [address] TACROLIMUS LEVEL, TROUGH (NM E DRUG LEVEL)on 09-02-2023 Interpretation and review of laboratory results Normal [facility] Tacrolimus (Bld) [Mass/Vol] 4.2 ng/mL [facility] Tacrolimus, Trough 4.2 ng/mL Normal [facility] Transplant: 4.0-12.0, Therapeutic: 5.0-15.0 [facility] Comment on above: Order Comment: Pleas e draw at specified interval PRIOR to dose. Do not hold dose to wait for level. Specimens batched twice per day, (M-F) and once per day weekendsMethod performed is a chemiluminescent microparticle immunoasssay on the [employer] i2000.The range is based on experience at [facility] and users should be aware that target concentrations vary widely depending on concomitant therapy, time post-transplant, and desired degree of immunosuppression. Performed By: #### T ACRO ####[facility] (DEFAULT)[address] [place] [address] CBC,PLATELETSon 09-01-2023 Hematocrit (Bld) [Volume fraction] 38.9 % Low 39.6-48.8 [facility] Comment on above: Performed By: #### [facility] ####[facility] (DEFAULT)[address] [place] [address] Hemoglobin (Bld) [Mass/Vol] 12.7 g/dL Low 13.4-16.8 [facility] Comment on above: Performed By: #### H EMO ####[facility] (DEFAULT)[address] [place] [address] MCV (RBC) [Entitic vol] 84.6 fL Normal 79.0-94.5 [facility] Comment on above: Performed By: #### H EMO ####[facility] (DEFAULT)[address] [place] [address] Mean Cell Hgb 27.6 pg Normal 26.1-33.3 [facility] Comment on above: Performed By: #### H EMO ####[facility] (DEFAULT)[address] [facility] [place] [address] Mean Cell Hgb Conc 32.6 g/dL Normal 31.9-36.5 [facility] Comment on above: Performed By: #### H EMOGC ####[facility] (DEFAULT)[address] [facility] [place] [address] Platelet mean volume (Bld) [Entitic vol] 9.4 fL Normal 8.7-12.3 [facility] Comment on above: Performed By: #### H EMO ####[facility] (DEFAULT)[address] [facility] [place] [address] Platelets (Bld) [#/Vol] 209 10*3/uL Normal 146-337 [facility] Comment on above: Performed By: #### H EMO ####[facility] (DEFAULT)[address] [facility] [address] RBC (Bld) [#/Vol] 4.60 10*6/uL Normal 4.38-5.83 [facility] Comment on above: Performed By: #### H EMO ####[facility] (DEFAULT)[address] [facility] [place] [address] RBC Distribution 13.4 % Normal 10.9-14.3 [facility] Comment on above: Performed By: #### H EMOGC ####[facility] (DEFAULT)[address] [facility] [address] WBC (Bld) [#/Vol] 4.41 10*3/uL Normal 3.73-10.10 [facility] Comment on above: Performed By: #### H EMOGC ####[facility] (DEFAULT)[address] [facility] [place] [address] Erythrocyte distribution width (RBC) [Ratio] 13.4 % 10.9 - 14.3 % [facility] Hematocrit (Bld) [Volume fraction] 38.9 % Low 39.6 - 48.8 % [facility] Hemoglobin (Bld) [Mass/Vol] 12.7 g/dL Low 13.4 - 16.8 g/dL [facility] Interpretation and review of laboratory results Abnormal [facility] MCH (RBC) [Entitic mass] 27.6 pg 26.1 - 33.3 pg [facility] MCHC (RBC) [Mass/Vol] 32.6 g/dL 31.9 - 36.5 g/dL [facility] MCV (RBC) [Entitic vol] 84.6 fL 79.0 - 94.5 fL [facility] Platelet mean volume (Bld) [Entitic vol] 9.4 fL 8.7 - 12.3 fL [facility] Platelets (Bld) [#/Vol] 209 10*3/uL 146 - 337 K/uL [facility] RBC (Bld) [#/Vol] 4.60 10*6/uL [facility] WBC (Bld) [#/Vol] 4.41 10*3/uL 3.73 - 10. 10 K/uL [facility] CHEM 7 (LYTES,BUN,CREA,GLUC) on 09-01-2023 Anion gap [Moles/Vol] 14 mmol/L Normal 7-17 [facility] Comment on above: Performed By: #### H FP, MGO, CHM7 ####[facility] (DEFAULT)[address] [place] [address] Chloride [Moles/Vol] 103 mmol/L Normal 98-108 [facility] Comment on above: Performed By: #### H FP, MGO, CHM7 ####[facility] (DEFAULT)[address] [place] [address] CO2 [Moles/Vol] 21 mmol/L Normal 21-31 [facility] Comment on above: Performed By: #### H FP, MGO, CHM7 ####[facility] (DEFAULT)[address] [place] [address] Creatinine [Mass/Vol] 1.16 mg/dL Normal 0.70-1.30 [facility] Comment on above: Performed By: #### H DOMENICA MONCADA CHM7 ####[facility] (DEFAULT)[address] [place] [address] GFR/1.73 sq M.predicted among non-blacks MDRD (S/P/Bld) [Vol rate/Area] 76 mL/min/{1.73_m2} Normal >=60 [facility] Comment on above: Result Comment: Repo rted eGFR is based on the CKD-EPI 2020 equation using creatinine, age, and sex. Performed By: #### H DOMENICA MONCADA CHM7 ####[facility] (DEFAULT)[address] [facility] [address] Glucose [Mass/Vol] 117 mg/dL High 70-99 [facility] Comment on above: Performed By: #### H DOMENICA MONCADA CHM7 ####[facility] (DEFAULT)[address] [facility] [place] [address] Osmolality [Osmolality] 285 mosm/kg Normal 278-305 [facility] Comment on above: Performed By: #### H DOMENICA MONCADA CHM7 ####[facility] (DEFAULT)[address] [facility] [place] [address] Potassium [Moles/Vol] 4.2 mmol/L Normal 3.5-5.0 [facility] Comment on above: Performed By: #### H DOMENICA MONCADA CHM7 ####[facility] (DEFAULT)[address] [facility] [place] [address] Sodium [Moles/Vol] 134 mmol/L Low 135-145 [facility] Comment on above: Performed By: #### H DOMENICA MONCADA CHM7 ####[facility] (DEFAULT)[address] [facility] [place] [address] Urea nitrogen [Mass/Vol] 18 mg/dL Normal 7-25 [facility] Comment on above: Performed By: #### H DOMENICA MONCADA CHM7 ####[facility] (DEFAULT)[address] [place] [address] Urea nitrogen/Creatinine [Mass ratio] 16 mg/mg Normal [facility] Comment on above: Performed By: #### H DOMENICA MONCADA CHM7 ####[facility] (DEFAULT)[address] [place] [address] Anion gap [Moles/Vol] 14 mmol/L 7 - 17 mmol/L [facility] Chloride [Moles/Vol] 103 mmol/L 98 - 10 8 mmol/L [facility] CO2 [Moles/Vol] 21 mmol/L 21 - 31 mmol/L [facility] Creatinine [Mass/Vol] 1.16 mg/dL 0.70 - 1.30 mg/dL [facility] eGFR, CKD-EPI, Male 76 - PINF [facility] Glucose [Mass/Vol] 117 mg/dL High 70 - 99 mg/dL [facility] Osmolality Calc [Osmolality] 285 [facility] Potassium [Moles/Vol] 4.2 mmol/L 3.5 - 5.0 mmol/L [facility] Sodium [Moles/Vol] 134 mmol/L Low 135 - 145 mmol/L [facility] Urea nitrogen [Mass/Vol] 18 mg/dL 7 - 25 mg/dL [facility] Urea nitrogen/Creatinine [Mass ratio] 16 mg/mg [facility] CRYPTOCOCCAL ANTIGENon 09-01 Cryptococcus Antigen,Serum Negative Normal Negative [facility] Comment on above: Performed By: #### C RAG ####[facility] (DEFAULT)[address] [place] [address] Cryptococcus sp Ag Ql (S) Negative Negative [facility] Interpretation and review of laboratory results Normal [facility] HEPATIC FUNCTION PANELon Albumin [Mass/Vol] 3.3 g/dL Low 3.5-5.0 [facility] Comment on above: Performed By: #### H FP MGO, CHM7 ####[facility] (DEFAULT)[address] [place] [address] ALP [Catalytic activity/Vol] 112 U/L Normal 32-126 [facility] Comment on above: Performed By: #### H FP, MGO, CHM7 ####[facility] (DEFAULT)[address] [place] [address] ALT [Catalytic activity/Vol] 21 U/L Normal 10-52 [facility] Comment on above: Performed By: #### H FP, MGO, CHM7 ####[facility] (DEFAULT)[address] [place] [address] AST [Catalytic activity/Vol] 29 U/L Normal 10-39 [facility] Comment on above: Performed By: #### H FP, MGO, CHM7 ####[facility] (DEFAULT)[address] [place] [address] Bilirubin [Mass/Vol] 1.0 mg/dL Normal <1.5 [facility] Comment on above: Performed By: #### H FP, MGO, CHM7 ####[facility] (DEFAULT)[address] [place] [address] Bilirubin.indirect [Mass/Vol] 0.2 mg/dL Normal <0.3 [facility] Comment on above: Performed By: #### H FP, MGO, CHM7 ####[facility] (DEFAULT)[address] [place] [address] Protein [Mass/Vol] 6.8 g/dL Normal 6.4-8.3 [facility] Comment on above: Performed By: #### H FP, MGO, CHM7 ####[facility] (DEFAULT)[address] [place] [address] Albumin [Mass/Vol] 3.3 g/dL Low 3.5 - 5.0 g/dL [facility] ALP [Catalytic activity/Vol] 112 U/L 32 - 126 U/L [facility] ALT [Catalytic activity/Vol] 21 U/L 10 - 52 U/L [facility] AST [Catalytic activity/Vol] 29 U/L 10 - 39 U/L [facility] Bilirubin [Mass/Vol] 1.0 mg/dL NINF - 1.5 mg/dL [facility] Bilirubin.direct [Mass/Vol] 0.2 mg/dL NINF - 0.3 mg/dL [facility] Protein [Mass/Vol] 6.8 g/dL 6.4 - 8.3 g/dL [facility] L. pneumophila 1 Ag IA Ql (U )Ordered By: Carolin Miles on 09-01-2023 Interpretation and review of laboratory results Normal [facility] LEGIONELLA URINARY AGOrdered By: Carolin Miles on 09-01-2023 L. pneumophila 1 Ag IA Ql (U) Negative Negative [facility] MAGNESIUMon 09-01-2023 Magnesium [Mass/Vol] 1.6 mg/dL Normal 1.6-2.6 [facility] Comment on above: Performed By: #### H FP, MGO, CHM7 ####[facility] (DEFAULT)[address] [place] [address] Interpretation and review of laboratory results Normal [facility] Magnesium [Mass/Vol] 1.6 mg/dL 1.6 - 2 .6 mg/dL [facility] No Panel Informationon 09-01 Interpretation and review of laboratory results Abnormal [facility] PARVOVIRUS (B19) DNA, PCR, B LOODon 09-01-2023 PARVOVIRUS B19 BY RAPID PCR Not detected Normal Not Detected [facility] Comment on above: Result Comment: The primers/probe used in this assay will detectparvovirus B19 and V9 (genotypes 1 # 3) but maynot detect parvovirus genotype 2. The majority ofcirculating Parvovirus B19 strains in the [facility] are genotype 1. Genotype 2 is not believed tocirculate widely in the [place], but has beenassociated with similar clinical features as genotype1. Genotype 3 is most prevalent in some [place] service unit[place].This test was developed and its analyticalperformance characteristics have been determinedby [facility] [place], [place].It has not been cleared or approved by the FDA. Thisassay has been validated pursuant to the CLIAregulations and is used for clinical purposes.Test Performed at:[facility] [address] [address]HypvxzlRamon Benavides M.D., Ph.D.,Director of Laboratories Performed By: #### Y PRVP ####[facility] (DEFAULT)[address] [place] [address] NM SPEC SOURCE Whole Blood Normal [facility] Comment on above: Performed By: #### Y PRVP ####[facility] (DEFAULT)[address] [place] [address] ASPERGILLUS (GALACTOMANNAN), ANTIGENon 08-31-2023 Aspergillus Antigen <0.500 Normal <0.5 [facility] Comment on above: Result Comment: ---- ADDITIONAL INFORMATION This is a qualitative test and the resulted index value isnot indicative of disease severity. Serial testing isrecommended for patients at high risk for invasiveaspergillosis.This assay was performed using the FDA-cleared [employer] Genetics[employer]atelia Aspergillus Galactomannan EIA.Test Performed by:[address] [address]Usg Director: Rosendo Bose M.D. Ph.D.; CLIA# [id number] Performed By: #### Y ASPR ####[facility] (DEFAULT)[address] [address] CBC,PLATELETSon 08-31-2023 Hematocrit (Bld) [Volume fraction] 39.4 % Low 39.6-48.8 [facility] Comment on above: Performed By: #### H EMOGC ####[facility] (DEFAULT)[address] [facility] [place] [address] Hemoglobin (Bld) [Mass/Vol] 12.8 g/dL Low 13.4-16.8 [facility] Comment on above: Performed By: #### H EMOGC ####[facility] (DEFAULT)[address] [facility] [place] [address] MCV (RBC) [Entitic vol] 85.1 fL Normal 79.0-94.5 [facility] Comment on above: Performed By: #### H EMOGC ####[facility] (DEFAULT)[address] [facility] [place] [address] Mean Cell Hgb 27.6 pg Normal 26.1-33.3 [facility] Comment on above: Performed By: #### H EMOGC ####[facility] (DEFAULT)[address] [facility] [place] [address] Mean Cell Hgb Conc 32.5 g/dL Normal 31.9-36.5 [facility] Comment on above: Performed By: #### H EMOGC ####[facility] (DEFAULT)[address] [facility] [place] [address] Platelet mean volume (Bld) [Entitic vol] 9.6 fL Normal 8.7-12.3 [facility] Comment on above: Performed By: #### H EMOGC ####[facility] (DEFAULT)[address] [facility] [place] [address] Platelets (Bld) [#/Vol] 228 10*3/uL Normal 146-337 [facility] Comment on above: Performed By: #### H EMOGC ####[facility] (DEFAULT)[address] [facility] [place] [address] RBC (Bld) [#/Vol] 4.63 10*6/uL Normal 4.38-5.83 [facility] Comment on above: Performed By: #### [facility] ####[facility] (DEFAULT)[address] [facility] [address] RBC Distribution 13.3 % Normal 10.9-14.3 [facility] Comment on above: Performed By: #### H CARL ALBERT [facility] ####[facility] (DEFAULT)[address] [place] [address] WBC (Bld) [#/Vol] 4.77 10*3/uL Normal 3.73-10.10 [facility] Comment on above: Performed By: #### H [facility]L [facility] ####[facility] (DEFAULT)[address] [place] [address] Erythrocyte distribution width (RBC) [Ratio] 13.3 % 10.9 - 14.3 % [facility] Hematocrit (Bld) [Volume fraction] 39.4 % Low 39.6 - 48.8 % [facility] Hemoglobin (Bld) [Mass/Vol] 12.8 g/dL Low 13.4 - 16.8 g/dL [facility] Interpretation and review of laboratory results Abnormal [facility] MCH (RBC) [Entitic mass] 27.6 pg 26.1 - 33.3 pg [facility] MCHC (RBC) [Mass/Vol] 32.5 g/dL 31.9 - 36.5 g/dL [facility] MCV (RBC) [Entitic vol] 85.1 fL 79.0 - 94.5 fL [facility] Platelet mean volume (Bld) [Entitic vol] 9.6 fL 8.7 - 12.3 fL [facility] Platelets (Bld) [#/Vol] 228 10*3/uL 146 - 337 K/uL [facility] RBC (Bld) [#/Vol] 4.63 10*6/uL [facility] WBC (Bld) [#/Vol] 4.77 10*3/uL 3.73 - 10. 10 K/uL [facility] CHEM 7 (LYTES,BUN,CREA,GLUC) on 08-31-2023 Anion gap [Moles/Vol] 13 mmol/L Normal 7-17 [facility] Comment on above: Performed By: #### M GO, HFP, CHM7, FERIB, PROCAL ####[facility] (DEFAULT)[address] [place] [address] Chloride [Moles/Vol] 102 mmol/L Normal 98-108 [facility] Comment on above: Performed By: #### M GO, HFP, CHM7, FERIB, PROCAL ####[facility] (DEFAULT)[address] [facility] [place] [address] CO2 [Moles/Vol] 23 mmol/L Normal 21-31 [facility] Comment on above: Performed By: #### M GO, HFP, CHM7, FERIB, PROCAL ####[facility] (DEFAULT)[address] [facility] [place] [address] Creatinine [Mass/Vol] 1.37 mg/dL High 0.70-1.30 [facility] Comment on above: Performed By: #### M GO, HFP, CHM7, FERIB, PROCAL ####[facility] (DEFAULT)[address] [place] [address] GFR/1.73 sq M.predicted among non-blacks MDRD (S/P/Bld) [Vol rate/Area] 62 mL/min/{1.73_m2} Normal >=60 [facility] Comment on above: Result Comment: Repo rted eGFR is based on the CKD-EPI 2020 equation using creatinine, age, and sex. Performed By: #### M GO, HFP, CHM7, FERIB, PROCAL ####[facility] (DEFAULT)[address] [place] [address] Glucose [Mass/Vol] 112 mg/dL High 70-99 [facility] Comment on above: Performed By: #### M GO, HFP, CHM7, FERIB, PROCAL ####[facility] (DEFAULT)[address] [place] [address] Osmolality [Osmolality] 284 mosm/kg Normal 278-305 [facility] Comment on above: Performed By: #### M GO, HFP, CHM7, FERIB, PROCAL ####[facility] (DEFAULT)[address] [place] [address] Potassium [Moles/Vol] 4.4 mmol/L Normal 3.5-5.0 [facility] Comment on above: Performed By: #### Rod GO, HFP, CHM7, FERIB, PROCAL ####[facility] (DEFAULT)[address] [place] [address] Sodium [Moles/Vol] 134 mmol/L Low 135-145 [facility] Comment on above: Performed By: #### M GO, HFP, CHM7, FERIB, PROCAL ####[facility] (DEFAULT)[address] [place] [address] Urea nitrogen [Mass/Vol] 16 mg/dL Normal 7-25 [facility] Comment on above: Performed By: #### M GO, HFP, CHM7, FERIB, PROCAL ####[facility] (DEFAULT)[address] [place] [address] Urea nitrogen/Creatinine [Mass ratio] 12 mg/mg Normal [facility] Comment on above: Performed By: #### M GO, HFP, CHM7, FERIB, PROCAL ####[facility] (DEFAULT)[address] [place] [address] Anion gap [Moles/Vol] 13 mmol/L 7 - 17 mmol/L [facility] Chloride [Moles/Vol] 102 mmol/L 98 - 10 8 mmol/L [facility] CO2 [Moles/Vol] 23 mmol/L 21 - 31 mmol/L [facility] Creatinine [Mass/Vol] 1.37 mg/dL High 0.70 - 1.30 mg/dL [facility] eGFR, CKD-EPI, Male 62 - [facility] Glucose [Mass/Vol] 112 mg/dL High 70 - 99 mg/dL [facility] Osmolality Calc [Osmolality] 284 [facility] Potassium [Moles/Vol] 4.4 mmol/L 3.5 - 5.0 mmol/L [facility] Sodium [Moles/Vol] 134 mmol/L Low 135 - 145 mmol/L [facility] Urea nitrogen [Mass/Vol] 16 mg/dL 7 - 25 mg/dL [facility] Urea nitrogen/Creatinine [Mass ratio] 12 mg/mg [facility] CT ABDOMEN/PELVIS WITHOUT CO NTRASTon 08-31-2023 CT ABDOMEN/PELVIS WITHOUT CONTRAST Normal [facility] CT Abdomen and Pelvis WO con traston 08-31-2023 RADIOLOGY RADIOLOGY [facility] Radiology Study observation (narrative) [facility] CT Abdomen and Pelvis WO con trastOrdered By: Chavez Larkin on 08-31-2023 [facility] Work Phone: CT CHEST WITHOUT CONTRASTon 08-31-2023 CT CHEST WITHOUT CONTRAST Normal [facility] CT Chest WO contraston 08-31 RADIOLOGY RADIOLOGY [facility] Radiology Study observation (narrative) [facility] CT Chest WO contrastOrdered By: Daisha Patterson on 08-31-2023 [facility] Work Phone: FERRITINon 08-31-2023 Ferritin [Mass/Vol] 409.0 ng/mL High 10.5 - 3 07.3 ng/mL [facility] Interpretation and review of laboratory results Abnormal [facility] Ferritin [Mass/Vol] 409.0 ng/mL High 10.5-307.3 [facility] Comment on above: Performed By: #### M GO, HFP, CHM7, FERIB, PROCAL ####[facility] (DEFAULT)[address] [place] [address] HEPATIC FUNCTION PANELon Albumin [Mass/Vol] 3.3 g/dL Low 3.5-5.0 [facility] Comment on above: Performed By: #### M GO, HFP, CHM7, FERIB, PROCAL ####[facility] (DEFAULT)[address] [place] [address] ALP [Catalytic activity/Vol] 113 U/L Normal 32-126 [facility] Comment on above: Performed By: #### M GO, HFP, CHM7, FERIB, PROCAL ####[facility] (DEFAULT)[address] [place] [address] ALT [Catalytic activity/Vol] 25 U/L Normal 10-52 [facility] Comment on above: Performed By: #### M GO, HFP, CHM7, FERIB, PROCAL ####[facility] (DEFAULT)[address] [place] [address] AST [Catalytic activity/Vol] 31 U/L Normal 10-39 [facility] Comment on above: Performed By: #### M GO, HFP, CHM7, FERIB, PROCAL ####[facility] (DEFAULT)[address] [place] [address] Bilirubin [Mass/Vol] 1.1 mg/dL Normal <1.5 [facility] Comment on above: Performed By: #### M GO, HFP, CHM7, FERIB, PROCAL ####[facility] (DEFAULT)[address] [place] [address] Bilirubin.indirect [Mass/Vol] 0.3 mg/dL High <0.3 [facility] Comment on above: Performed By: #### M GO, HFP, CHM7, FERIB, PROCAL ####[facility] (DEFAULT)[address] [place] [address] Protein [Mass/Vol] 7.0 g/dL Normal 6.4-8.3 [facility] Comment on above: Performed By: #### M TAVO BLOOM, NATHANIEL, ANG DOMINIQUE ####[facility] (DEFAULT)[address] [place] [address] Albumin [Mass/Vol] 3.3 g/dL Low 3.5 - 5.0 g/dL [facility] ALP [Catalytic activity/Vol] 113 U/L 32 - 126 U/L [facility] ALT [Catalytic activity/Vol] 25 U/L 10 - 52 U/L [facility] AST [Catalytic activity/Vol] 31 U/L 10 - 39 U/L [facility] Bilirubin [Mass/Vol] 1.1 mg/dL NINF - 1.5 mg/dL [facility] Bilirubin.direct [Mass/Vol] 0.3 mg/dL High NINF - 0.3 mg/dL [facility] Protein [Mass/Vol] 7.0 g/dL 6.4 - 8.3 g/dL [facility] LEGIONELLA URINARY AGon Legionella Urinary Antigen Negative Normal Negative [facility] Comment on above: Performed By: #### L EGION ####[facility] (DEFAULT)[address] [place] [address] MAGNESIUMon 08-31-2023 Magnesium [Mass/Vol] 1.7 mg/dL Normal 1.6-2.6 [facility] Comment on above: Performed By: #### M TAVO BLOOM, NATHANIEL, ANG DOMINIQUE ####[facility] (DEFAULT)[address] [place] [address] Interpretation and review of laboratory results Normal [facility] Magnesium [Mass/Vol] 1.7 mg/dL 1.6 - 2 .6 mg/dL [facility] No Panel Informationon 08-31 Interpretation and review of laboratory results Abnormal [facility] PROCALCITONINon 08-31-2023 Interpretation and review of laboratory results Normal [facility] Procalcitonin [Mass/Vol] 0.23 ng/mL NINF - 0.50 ng/mL [facility] Procalcitonin 0.23 ng/mL Normal <0.50 [facility] Comment on above: Result Comment: Proc alcitonin [...] and trend procalcitonin in various clinical settings. [email or web address]/departments/[email or web address]?[email or web address]=/[email or web address]/[email or web address]/Documents/[email or web address] [email or web address]&action=[email or web address] common cutoffs associated with bacterial infections are as follows.Respiratory tract infections: >0.25 ng/mLSepsis/septic shock: >0.5 ng/mLProcalcitonin should not be used alone as a diagnostic tool, however. All procalcitonin results should be interpreted in association with the patients clinical condition and all laboratory findings. Performed By: #### M MERLE, [facility], CHM7, CATINA, ANG ####[facility] (DEFAULT)[address] [place] [address] TACROLIMUS LEVEL, TROUGH (NM E DRUG LEVEL)Ordered By: Yanira Marcum on 08-31-2023 Interpretation and review of laboratory results Normal [facility] Tacrolimus (Bld) [Mass/Vol] 5.9 ng/mL [facility] TACROLIMUS LEVEL, TROUGH (NM E DRUG LEVEL)on 08-31-2023 Tacrolimus, Trough 5.9 ng/mL Normal Bone Susana ow Transplant: 4.0-12.0, Therapeutic: 5.0-15.0 [facility] Comment on above: Order Comment: Pleas e draw at specified interval PRIOR to dose. Do not hold dose to wait for level. Specimens batched twice per day, (M-F) and once per day weekendsMethod performed is a chemiluminescent microparticle immunoasssay on the [employer] Salt Washer i2000.The range is based on experience at [facility] and users should be aware that target concentrations vary widely depending on concomitant therapy, time post-transplant, and desired degree of immunosuppression. Performed By: #### T ACRO ####[facility] (DEFAULT)[address] [place] [address] URINE CULTUREOrdered By: Jorge crowe Held on 08-31-2023 Bacteria identified Cx Nom (Unsp spec) No Growth [facility] DARYL AURIS SCREEN BY PCRO rdered By: Mynor Alejandro on 08-30-2023 Daryl auris Screen by PCR Not detected Not Detected [facility] Interpretation and review of laboratory results Normal [facility] CBC,PLATELETSon 08-30-2023 Hematocrit (Bld) [Volume fraction] 41.3 % Normal 39.6-48.8 [facility] Comment on above: Performed By: #### H EMOGC ####[facility] (DEFAULT)[address] [place] [address] Hemoglobin (Bld) [Mass/Vol] 13.2 g/dL Low 13.4-16.8 [facility] Comment on above: Performed By: #### H EMOGC ####[facility] (DEFAULT)[address] [place] [address] MCV (RBC) [Entitic vol] 85.5 fL Normal 79.0-94.5 [facility] Comment on above: Performed By: #### H EMOGC ####[facility] (DEFAULT)[address] [place] [address] Mean Cell Hgb 27.3 pg Normal 26.1-33.3 [facility] Comment on above: Performed By: #### H EMOGC ####[facility] (DEFAULT)[address] [place] [address] Mean Cell Hgb Conc 32.0 g/dL Normal 31.9-36.5 [facility] Comment on above: Performed By: #### H EMOGC ####[facility] (DEFAULT)[address] [place] [address] Platelet mean volume (Bld) [Entitic vol] 9.2 fL Normal 8.7-12.3 [facility] Comment on above: Performed By: #### H EMOGC ####[facility] (DEFAULT)[address] [place] [address] Platelets (Bld) [#/Vol] 235 10*3/uL Normal 146-337 [facility] Comment on above: Performed By: #### H EMOGC ####[facility] (DEFAULT)[address] [facility] [place] [address] RBC (Bld) [#/Vol] 4.83 10*6/uL Normal 4.38-5.83 [facility] Comment on above: Performed By: #### H EMOGC ####[facility] (DEFAULT)[address] [place] [address] RBC Distribution 13.3 % Normal 10.9-14.3 [facility] Comment on above: Performed By: #### H EMOGC ####[facility] (DEFAULT)[address] [facility] [place] [address] WBC (Bld) [#/Vol] 4.96 10*3/uL Normal 3.73-10.10 [facility] Comment on above: Performed By: #### H EMOGC ####[facility] (DEFAULT)[address] [place] [address] Erythrocyte distribution width (RBC) [Ratio] 13.3 % 10.9 - 14.3 % [facility] Hematocrit (Bld) [Volume fraction] 41.3 % 39.6 - 48.8 % [facility] Hemoglobin (Bld) [Mass/Vol] 13.2 g/dL Low 13.4 - 16.8 g/dL [facility] Interpretation and review of laboratory results Abnormal [facility] MCH (RBC) [Entitic mass] 27.3 pg 26.1 - 33.3 pg [facility] MCHC (RBC) [Mass/Vol] 32.0 g/dL 31.9 - 36.5 g/dL [facility] MCV (RBC) [Entitic vol] 85.5 fL 79.0 - 94.5 fL [facility] Platelet mean volume (Bld) [Entitic vol] 9.2 fL 8.7 - 12.3 fL [facility] Platelets (Bld) [#/Vol] 235 10*3/uL 146 - 337 K/uL [facility] RBC (Bld) [#/Vol] 4.83 10*6/uL [facility] WBC (Bld) [#/Vol] 4.96 10*3/uL 3.73 - 10. 10 K/uL [facility] CHEM 7 (LYTES,BUN,CREA,GLUC) on 08-30-2023 Anion gap [Moles/Vol] 14 mmol/L Normal 7-17 [facility] Comment on above: Performed By: #### NATHANIEL RAMÍREZ, HFP ####[facility] (DEFAULT)[address] [place] [address] Chloride [Moles/Vol] 102 mmol/L Normal 98-108 [facility] Comment on above: Performed By: #### NATHANIEL RAMÍREZ, HFP ####[facility] (DEFAULT)[address] [place] [address] CO2 [Moles/Vol] 20 mmol/L Low 21-31 [facility] Comment on above: Performed By: ###NATHANIEL HERNANDEZ, HFP ####[facility] (DEFAULT)[address] [place] [address] Creatinine [Mass/Vol] 1.56 mg/dL High 0.70-1.30 [facility] Comment on above: Performed By: #### NATHANIEL RAMÍREZ, HFP ####[facility] (DEFAULT)[address] [place] [address] GFR/1.73 sq M.predicted among non-blacks MDRD (S/P/Bld) [Vol rate/Area] 53 mL/min/{1.73_m2} Low >=60 [facility] Comment on above: Result Comment: Repo rted eGFR is based on the CKD-EPI 2020 equation using creatinine, age, and sex. Performed By: #### NATHANIEL RAMÍREZ, HFP ####[facility] (DEFAULT)[address] [facility] [place] [address] Glucose [Mass/Vol] 123 mg/dL High 70-99 [facility] Comment on above: Performed By: #### NATHANIEL RAMÍREZ, HFP ####[facility] (DEFAULT)[address] [facility] [place] [address] Osmolality [Osmolality] 281 mosm/kg Normal 278-305 [facility] Comment on above: Performed By: #### NATHANIEL RAMÍREZ, HFP ####[facility] (DEFAULT)[address] [place] [address] Potassium [Moles/Vol] 4.3 mmol/L Normal 3.5-5.0 [facility] Comment on above: Performed By: #### NATHANIEL RAMÍREZ, HFP ####[facility] (DEFAULT)[address] [place] [address] Sodium [Moles/Vol] 132 mmol/L Low 135-145 [facility] Comment on above: Performed By: #### NATHANIEL RAMÍREZ, HFP ####[facility] (DEFAULT)[address] [place] [address] Urea nitrogen [Mass/Vol] 16 mg/dL Normal 7-25 [facility] Comment on above: Performed By: #### M NATHANIEL BLOOM, HFP ####[facility] (DEFAULT)[address] [place] [address] Urea nitrogen/Creatinine [Mass ratio] 10 mg/mg Normal [facility] Comment on above: Performed By: #### M NATHANIEL BLOOM, HFP ####[facility] (DEFAULT)[address] [place] [address] Anion gap [Moles/Vol] 14 mmol/L 7 - 17 mmol/L [facility] Chloride [Moles/Vol] 102 mmol/L 98 - 10 8 mmol/L [facility] CO2 [Moles/Vol] 20 mmol/L Low 21 - 31 mmol/L [facility] Creatinine [Mass/Vol] 1.56 mg/dL High 0.70 - 1.30 mg/dL [facility] eGFR, CKD-EPI, Male 54 Low - PINF [facility] Glucose [Mass/Vol] 123 mg/dL High 70 - 99 mg/dL [facility] Osmolality Calc [Osmolality] 281 [facility] Potassium [Moles/Vol] 4.3 mmol/L 3.5 - 5.0 mmol/L [facility] Sodium [Moles/Vol] 132 mmol/L Low 135 - 145 mmol/L [facility] Urea nitrogen [Mass/Vol] 16 mg/dL 7 - 25 mg/dL [facility] Urea nitrogen/Creatinine [Mass ratio] 10 mg/mg [facility] EXTRA MICROon 08-30-2023 [facility] HEPATIC FUNCTION PANELon Albumin [Mass/Vol] 3.7 g/dL Normal 3.5-5.0 [facility] Comment on above: Performed By: #### M NATHANIEL BLOOM, HFP ####[facility] (DEFAULT)[address] [place] [address] ALP [Catalytic activity/Vol] 115 U/L Normal 32-126 [facility] Comment on above: Performed By: #### M HELEN BLOOMM7, HFP ####[facility] (DEFAULT)[address] [place] [address] ALT [Catalytic activity/Vol] 22 U/L Normal 10-52 [facility] Comment on above: Performed By: #### M HELEN BLOOMM7, HFP ####[facility] (DEFAULT)[address] [place] [address] AST [Catalytic activity/Vol] 34 U/L Normal 10-39 [facility] Comment on above: Performed By: #### M HELEN BLOOMM7, HFP ####[facility] (DEFAULT)[address] [place] [address] Bilirubin [Mass/Vol] 1.2 mg/dL Normal <1.5 [facility] Comment on above: Performed By: #### M MERLE CHM7, HFP ####[facility] (DEFAULT)[address] [place] [address] Bilirubin.indirect [Mass/Vol] 0.3 mg/dL High <0.3 [facility] Comment on above: Performed By: #### Rod BLOOM CHM7, HFP ####[facility] (DEFAULT)[address] [place] [address] Protein [Mass/Vol] 7.7 g/dL Normal 6.4-8.3 [facility] Comment on above: Performed By: #### M MERLE CHM7, HFP ####[facility] (DEFAULT)[address] [place] [address] Albumin [Mass/Vol] 3.7 g/dL 3.5 - 5.0 g/dL [facility] ALP [Catalytic activity/Vol] 115 U/L 32 - 126 U/L [facility] ALT [Catalytic activity/Vol] 22 U/L 10 - 52 U/L [facility] AST [Catalytic activity/Vol] 34 U/L 10 - 39 U/L [facility] Bilirubin [Mass/Vol] 1.2 mg/dL NINF - 1.5 mg/dL [facility] Bilirubin.direct [Mass/Vol] 0.3 mg/dL High NINF - 0.3 mg/dL [facility] Protein [Mass/Vol] 7.7 g/dL 6.4 - 8.3 g/dL [facility] MAGNESIUMon 08-30-2023 Magnesium [Mass/Vol] 1.8 mg/dL Normal 1.6-2.6 [facility] Comment on above: Performed By: #### M MERLE, M7, [facility] ####[facility] (DEFAULT)[address] [place] [address] Interpretation and review of laboratory results Normal [facility] Magnesium [Mass/Vol] 1.8 mg/dL 1.6 - 2 .6 mg/dL [facility] No Panel Informationon 08-30 Interpretation and review of laboratory results Abnormal [facility] CBC,PLATELETSon 08-29-2023 Hematocrit (Bld) [Volume fraction] 37.6 % Low 39.6-48.8 [facility] Comment on above: Performed By: #### H [facility] ####[facility] (DEFAULT)[address] [place] [address] Hemoglobin (Bld) [Mass/Vol] 12.2 g/dL Low 13.4-16.8 [facility] Comment on above: Performed By: #### H [facility] ####[facility] (DEFAULT)[address] [place] [address] MCV (RBC) [Entitic vol] 85.1 fL Normal 79.0-94.5 [facility] Comment on above: Performed By: #### H EMO ####[facility] (DEFAULT)[address] [place] [address] Mean Cell Hgb 27.6 pg Normal 26.1-33.3 [facility] Comment on above: Performed By: #### H EMOGC ####[facility] (DEFAULT)[address] [place] [address] Mean Cell Hgb Conc 32.4 g/dL Normal 31.9-36.5 [facility] Comment on above: Performed By: #### H EMOGC ####[facility] (DEFAULT)[address] [place] [address] Platelet mean volume (Bld) [Entitic vol] 9.4 fL Normal 8.7-12.3 [facility] Comment on above: Performed By: #### H EMOGC ####[facility] (DEFAULT)[address] [place] [address] Platelets (Bld) [#/Vol] 233 10*3/uL Normal 146-337 [facility] Comment on above: Performed By: #### H EMOGC ####[facility] (DEFAULT)[address] [place] [address] RBC (Bld) [#/Vol] 4.42 10*6/uL Normal 4.38-5.83 [facility] Comment on above: Performed By: #### H EMOGC ####[facility] (DEFAULT)[address] [place] [address] RBC Distribution 13.4 % Normal 10.9-14.3 [facility] Comment on above: Performed By: #### H EMOGC ####[facility] (DEFAULT)[address] [place] [address] WBC (Bld) [#/Vol] 4.92 10*3/uL Normal 3.73-10.10 [facility] Comment on above: Performed By: #### H EMOGC ####[facility] (DEFAULT)[address] [place] [address] Erythrocyte distribution width (RBC) [Ratio] 13.4 % 10.9 - 14.3 % [facility] Hematocrit (Bld) [Volume fraction] 37.6 % Low 39.6 - 48.8 % [facility] Hemoglobin (Bld) [Mass/Vol] 12.2 g/dL Low 13.4 - 16.8 g/dL [facility] Interpretation and review of laboratory results Abnormal [facility] MCH (RBC) [Entitic mass] 27.6 pg 26.1 - 33.3 pg [facility] MCHC (RBC) [Mass/Vol] 32.4 g/dL 31.9 - 36.5 g/dL [facility] MCV (RBC) [Entitic vol] 85.1 fL 79.0 - 94.5 fL [facility] Platelet mean volume (Bld) [Entitic vol] 9.4 fL 8.7 - 12.3 fL [facility] Platelets (Bld) [#/Vol] 233 10*3/uL 146 - 337 K/uL [facility] RBC (Bld) [#/Vol] 4.42 10*6/uL [facility] WBC (Bld) [#/Vol] 4.92 10*3/uL 3.73 - 10. 10 K/uL [facility] CHEM 7 (LYTES,BUN,CREA,GLUC) on 08-29-2023 Anion gap [Moles/Vol] 13 mmol/L Normal 7-17 [facility] Comment on above: Performed By: #### M MERLE CHM7, GGTB, HFP ####[facility] (DEFAULT)[address] [place] [address] Chloride [Moles/Vol] 105 mmol/L Normal 98-108 [facility] Comment on above: Performed By: #### M MRELE CHM7, GGTB, HFP ####[facility] (DEFAULT)[address] [place] [address] CO2 [Moles/Vol] 20 mmol/L Low 21-31 [facility] Comment on above: Performed By: #### M GO, CHM7, GGTB, HFP ####[facility] (DEFAULT)[address] [facility] [place] [address] Creatinine [Mass/Vol] 1.55 mg/dL High 0.70-1.30 [facility] Comment on above: Performed By: #### M GO, CHM7, GGTB, HFP ####[facility] (DEFAULT)[address] [place] [address] GFR/1.73 sq M.predicted among non-blacks MDRD (S/P/Bld) [Vol rate/Area] 54 mL/min/{1.73_m2} Low >=60 [facility] Comment on above: Result Comment: Repo rted eGFR is based on the CKD-EPI 2020 equation using creatinine, age, and sex. Performed By: #### M GO, CHM7, GGTB, HFP ####[facility] (DEFAULT)[address] [facility] [place] [address] Glucose [Mass/Vol] 108 mg/dL High 70-99 [facility] Comment on above: Performed By: #### M GO, CHM7, GGTB, HFP ####[facility] (DEFAULT)[address] [place] [address] Osmolality [Osmolality] 283 mosm/kg Normal 278-305 [facility] Comment on above: Performed By: #### M GO, CHM7, GGTB, HFP ####[facility] (DEFAULT)[address] [place] [address] Potassium [Moles/Vol] 4.5 mmol/L Normal 3.5-5.0 [facility] Comment on above: Performed By: #### M GO, CHM7, GGTB, HFP ####[facility] (DEFAULT)[address] [place] [address] Sodium [Moles/Vol] 133 mmol/L Low 135-145 [facility] Comment on above: Performed By: #### M GO, CHM7, GGTB, HFP ####[facility] (DEFAULT)[address] [facility] [address] Urea nitrogen [Mass/Vol] 19 mg/dL Normal 7-25 [facility] Comment on above: Performed By: #### M GO, CHM7, GGTB, HFP ####[facility] (DEFAULT)[address] [facility] [place] [address] Urea nitrogen/Creatinine [Mass ratio] 12 mg/mg Normal [facility] Comment on above: Performed By: #### M GO, CHM7, GGTB, HFP ####[facility] (DEFAULT)[address] [facility] [address] Anion gap [Moles/Vol] 13 mmol/L 7 - 17 mmol/L [facility] Chloride [Moles/Vol] 105 mmol/L 98 - 10 8 mmol/L [facility] CO2 [Moles/Vol] 20 mmol/L Low 21 - 31 mmol/L [facility] Creatinine [Mass/Vol] 1.55 mg/dL High 0.70 - 1.30 mg/dL [facility] eGFR, CKD-EPI, Male 55 Low - PINF [facility] Glucose [Mass/Vol] 108 mg/dL High 70 - 99 mg/dL [facility] Osmolality Calc [Osmolality] 283 [facility] Potassium [Moles/Vol] 4.5 mmol/L 3.5 - 5.0 mmol/L [facility] Sodium [Moles/Vol] 133 mmol/L Low 135 - 145 mmol/L [facility] Urea nitrogen [Mass/Vol] 19 mg/dL 7 - 25 mg/dL [facility] Urea nitrogen/Creatinine [Mass ratio] 12 mg/mg [facility] GGTon 08-29-2023 Gamma glutamyl transferase [Catalytic activity/Vol] 64 U/L 8 - 64 U/L [facility] Interpretation and review of laboratory results Normal [facility] Gamma glutamyl transferase [Catalytic activity/Vol] 64 U/L Normal 8-64 [facility] Comment on above: Performed By: #### M GO, CHM7, GGTB, HFP ####[facility] (DEFAULT)[address] [place] [address] HEPATIC FUNCTION PANELon Albumin [Mass/Vol] 3.3 g/dL Low 3.5-5.0 [facility] Comment on above: Performed By: #### M GO, CHM7, GGTB, HFP ####[facility] (DEFAULT)[address] [place] [address] ALP [Catalytic activity/Vol] 103 U/L Normal 32-126 [facility] Comment on above: Performed By: #### M GO, CHM7, GGTB, HFP ####[facility] (DEFAULT)[address] [place] [address] ALT [Catalytic activity/Vol] 18 U/L Normal 10-52 [facility] Comment on above: Performed By: #### M GO, CHM7, GGTB, HFP ####[facility] (DEFAULT)[address] [place] [address] AST [Catalytic activity/Vol] 27 U/L Normal 10-39 [facility] Comment on above: Performed By: #### M GO, CHM7, GGTB, HFP ####[facility] (DEFAULT)[address] [place] [address] Bilirubin [Mass/Vol] 1.1 mg/dL Normal <1.5 [facility] Comment on above: Performed By: #### M GO, CHM7, GGTB, HFP ####[facility] (DEFAULT)[address] [place] [address] Bilirubin.indirect [Mass/Vol] 0.3 mg/dL High <0.3 [facility] Comment on above: Performed By: #### M GO, CHM7, GGTB, HFP ####[facility] (DEFAULT)[address] [facility] [place] [address] Protein [Mass/Vol] 6.8 g/dL Normal 6.4-8.3 [facility] Comment on above: Performed By: #### M GO, CHM7, GGTB, HFP ####[facility] (DEFAULT)[address] [facility] [place] [address] Albumin [Mass/Vol] 3.3 g/dL Low 3.5 - 5.0 g/dL [facility] ALP [Catalytic activity/Vol] 103 U/L 32 - 126 U/L [facility] ALT [Catalytic activity/Vol] 18 U/L 10 - 52 U/L [facility] AST [Catalytic activity/Vol] 27 U/L 10 - 39 U/L [facility] Bilirubin [Mass/Vol] 1.1 mg/dL NINF - 1.5 mg/dL [facility] Bilirubin.direct [Mass/Vol] 0.3 mg/dL High NINF - 0.3 mg/dL [facility] Protein [Mass/Vol] 6.8 g/dL 6.4 - 8.3 g/dL [facility] HISTOPLASMA AND BLASTOMYCES ANTIGEN, ENZYME IMMUNOASSAY, SERMon 08-29-2023 Histoplasma/Blastomy antonia Ag Result Detected Invalid Interpretation Code Not Detected [facility] Comment on above: Result Comment: Anti gen from Histoplasma or Blastomyces (unable todifferentiate) detected. Result should be correlated withclinical presentation, exposure history, and otherdiagnostic procedures, including culture, serology,histopathology, and/or radiographic findings, to aid in thedifferentiation between histoplasmosis and blastomycosis.CRITICAL RESULT Performed By: #### H IBAG ####[facility] (DEFAULT)[address] [facility] [place] [address] Histoplasma/Blastomy antonia Ag Value 5.3 ng/mL Normal [facility] Comment on above: Result Comment: ---- ADDITIONAL INFORMATION This test was developed and its performance characteristicsdetermined by [facility] in a manner consistent with CLIArequirements. This test has not been cleared or approved bythe U.S. Food and Drug Administration.Test Performed by:[address] Director: Rosendo Bose M.D. Ph.D.; CLIA# [id number] Performed By: #### H IBAG ####[facility] (DEFAULT)[address] [place] [address], [place] [address] HISTOPLASMA ANTIGEN,URINEon 08-29-2023 HISTOPLASM AG, URINE Not detected Normal Not Detected [facility] Comment on above: Result Comment: No H istoplasma antigen detected.False negative results may occur. Repeat testing on anew specimen should be considered if clinically indicated. Performed By: #### Y HISTG ####[facility] (DEFAULT)[address] [place] [address], [place] [address] Histoplasma Ag Value Not detected Normal [facility] Comment on above: Result Comment: ---- ADDITIONAL INFORMATION This test has been modified from the glass mold repairer'sinstructions. Its performance characteristics weredetermined by [facility] in a manner consistent withCLIA requirements. This test has not been cleared orapproved by the U.S. Food and Drug Administration.Test Performed by:[address] [address] Director: Rosendo Bose M.D. Ph.D.; CLIA# [id number] Performed By: #### Y HISTG ####[facility] (DEFAULT)[address] [place] [address], [place] [address] MAGNESIUMon 08-29-2023 Magnesium [Mass/Vol] 1.7 mg/dL Normal 1.6-2.6 [facility] Comment on above: Performed By: #### JT RAMÍREZ7, GGTB, HFP ####[facility] (DEFAULT)[address] [facility] [address] Interpretation and review of laboratory results Normal [facility] Magnesium [Mass/Vol] 1.7 mg/dL 1.6 - 2 .6 mg/dL [facility] No Panel Informationon 08-29 Interpretation and review of laboratory results Abnormal [facility] PT,INR,PTTon 08-29-2023 aPTT Coag (Bld) [Time] 29.3 s Normal 24.0-34.3 [facility] Comment on above: Performed By: #### P TPTT ####[facility] (DEFAULT)[address] [facility] [address] INR Coag (PPP) [Relative time] 1.1 {INR} Normal 0.9-1.1 [facility] Comment on above: Performed By: #### P TPTT ####[facility] (DEFAULT)[address] [facility] [address] PT Coag (PPP) [Time] 13.8 s Normal 11.9-14.2 [facility] Comment on above: Performed By: #### P TPTT ####[facility] (DEFAULT)[address] [facility] [address] aPTT Coag (PPP) [Time] 29.3 s [facility] INR Coag (Bld) [Relative time] 1.1 {INR} 0.9 - 1.1 [facility] Interpretation and review of laboratory results Normal [facility] PT Coag (PPP) [Time] 13.8 s [facility] Portable XR Chest Viewson RADIOLOGY RADIOLOGY [facility] Portable XR Chest ViewsOrder ed By: Gerald Baer on 08-29-2023 [facility] Work Phone: TACROLIMUS LEVEL, TROUGH (NM E DRUG LEVEL)on 08-29-2023 Interpretation and review of laboratory results Normal [facility] Tacrolimus (Bld) [Mass/Vol] 8.9 ng/mL [facility] Tacrolimus, Trough 8.9 ng/mL Normal [facility] Transplant: 4.0-12.0, Therapeutic: 5.0-15.0 [facility] Comment on above: Order Comment: Pleas e draw at specified interval PRIOR to dose. Do not hold dose to wait for level. Specimens batched twice per day, (M-F) and once per day weekendsMethod performed is a chemiluminescent microparticle immunoasssay on the [employer] i2000.The range is based on experience at [facility] and users should be aware that target concentrations vary widely depending on concomitant therapy, time post-transplant, and desired degree of immunosuppression. Performed By: #### T ACRO ####[facility] (DEFAULT)[address] [place] [address] Tacrolimus, Trough 8.7 ng/mL Normal [facility] Transplant: 4.0-12.0, Therapeutic: 5.0-15.0 [facility] Comment on above: Order Comment: Pleas e draw at specified interval PRIOR to dose. Do not hold dose to wait for level. Specimens batched twice per day, (M-F) and once per day weekendsMethod performed is a chemiluminescent microparticle immunoasssay on the [employer] i2000.The range is based on experience at [facility] and users should be aware that target concentrations vary widely depending on concomitant therapy, time post-transplant, and desired degree of immunosuppression. Performed By: #### T ACRO ####[facility] (DEFAULT)[address] [place] [address] TACROLIMUS LEVEL, TROUGH (NM E DRUG LEVEL)Ordered By: Roxanne Louie on 08-29-2023 Interpretation and review of laboratory results Normal [facility] Tacrolimus (Bld) [Mass/Vol] 8.7 ng/mL [facility] URINALYSIS REFLEX TO CULTURE PERFORMABLEon 08-29-2023 Appearance (U) Clear Normal Clear [facility] Comment on above: Order Comment: For i ndwelling catheters, specimen collection is acceptable on catheter day 1 and 2 only. ? Performed By: #### U [id number] ####[facility] (DEFAULT)[address] [place] [address] Bacteria ABSENT Normal ABSENT [facility] Comment on above: Order Comment: For i ndwelling catheters, specimen collection is acceptable on catheter day 1 and 2 only. ? Performed By: #### U [id number] ####[facility] (DEFAULT)[address] [place] [address] Blood Urine Trace Abnormal Negative [facility] Comment on above: Order Comment: For i ndwelling catheters, specimen collection is acceptable on catheter day 1 and 2 only. ? Performed By: #### U [id number] ####[facility] (DEFAULT)[address] [facility] [place] [address] Calcium Oxalate Crystals PRESENT Normal [facility] Comment on above: Order Comment: For i ndwelling catheters, specimen collection is acceptable on catheter day 1 and 2 only. ? Performed By: #### U [id number] ####[facility] (DEFAULT)[address] [place] [address] Color (U) Yellow Normal Yellow [facility] Comment on above: Order Comment: For i ndwelling catheters, specimen collection is acceptable on catheter day 1 and 2 only. ? Performed By: #### U [id number] ####[facility] (DEFAULT)[address] [place] [address] Glucose Ql (U) Negative Normal Negative [facility] Comment on above: Order Comment: For i ndwelling catheters, specimen collection is acceptable on catheter day 1 and 2 only. ? Performed By: #### U [id number] ####[facility] (DEFAULT)[address] [place] [address] Ketones Ql (U) Negative Normal Negative [facility] Comment on above: Order Comment: For i ndwelling catheters, specimen collection is acceptable on catheter day 1 and 2 only. ? Performed By: #### U [id number] ####[facility] (DEFAULT)[address] [place], [place] [address], [place] [address] Leukocyte esterase Test strip Ql (U) Negative Normal Negative [facility] Comment on above: Order Comment: For i ndwelling catheters, specimen collection is acceptable on catheter day 1 and 2 only. ? Performed By: #### U [id number] ####[facility] (DEFAULT)[address] [place] [address], [place] [address] Nitrites Urine Negative Normal Negative [facility] Comment on above: Order Comment: For i ndwelling catheters, specimen collection is acceptable on catheter day 1 and 2 only. ? Performed By: #### U [id number] ####[facility] (DEFAULT)[address] [place] [address], [place] [address] pH (U) 6.0 [pH] Normal 5.0-7.0 [facility] Comment on above: Order Comment: For i ndwelling catheters, specimen collection is acceptable on catheter day 1 and 2 only. ? Performed By: #### U [id number] ####[facility] (DEFAULT)[address] [place] [address], [place] [address] Protein Urine Negative Normal Negative [facility] Comment on above: Order Comment: For i ndwelling catheters, specimen collection is acceptable on catheter day 1 and 2 only. ? Performed By: #### U [id number] ####[facility] (DEFAULT)[address] [place] [address], [place] [address] RBC Urine 3-5 Abnormal 0-2 [facility] Comment on above: Order Comment: For i ndwelling catheters, specimen collection is acceptable on catheter day 1 and 2 only. ? Performed By: #### U [id number] ####[facility] (DEFAULT)[address] [place], [place] [address], [place] [address] [place] Urine 1.015 Normal 1.001-1.035 [facility] Comment on above: Order Comment: For i ndwelling catheters, specimen collection is acceptable on catheter day 1 and 2 only. ? Performed By: #### U [id number] ####[facility] (DEFAULT)[address] [facility] [address] Squamous/Epithelial Cells 0-2/hpf Normal 0-2/hpf, 3-5/hpf = 1+ [facility] Comment on above: Order Comment: For i ndwelling catheters, specimen collection is acceptable on catheter day 1 and 2 only. ? Performed By: #### U [id number] ####[facility] (DEFAULT)[address] [facility] [address] Urobilinogen Urine 1.0 E.U./dL Normal 0.2 E.U/d L, 1.0 E.U/dL [facility] Comment on above: Order Comment: For i ndwelling catheters, specimen collection is acceptable on catheter day 1 and 2 only. ? Performed By: #### U [id number] ####[facility] (DEFAULT)[address] [facility] [address] WBC Urine 0 - 5 Normal 0 - 5 [facility] Comment on above: Order Comment: For i ndwelling catheters, specimen collection is acceptable on catheter day 1 and 2 only. ? Performed By: #### U [id number] ####[facility] (DEFAULT)[address] [facility] [address] URINALYSIS REFLEX TO CULTURE PERFORMABLEOrdered By: Shaji Kelly on 08-29-2023 Appearance (U) Clear Clear [facility] Bacteria LM Ql (Urine sed) ABSENT ABSENT [facility] Calcium Oxalate Crystals PRESENT [facility] Color (U) Yellow Yellow [facility] Epithelial cells.squamous LM Ql (Urine sed) 0-2/hpf 0-2/hpf, 3-5/hpf = 1+ [facility] Glucose Test strip (U) [Mass/Vol] Negative Negative [facility] Interpretation and review of laboratory results Abnormal [facility] Ketones (U) [Mass/Vol] Negative Negative [facility] Leukocyte esterase Test strip Ql (U) Negative Negative [facility] Nitrite Ql (U) Negative Negative [facility] pH (U) 6.0 [pH] 5.0 - 7.0 [facility] Protein (U) [Mass/Vol] Negative Negative [facility] RBC (U) [#/Vol] Trace Abnormal Negative [facility] RBC LM.HPF (Urine sed) [#/Area] 3-5 Abnormal [facility] Specific gravity (U) [Rel density] 1.015 1.001 - 1.035 [facility] Urobilinogen (U) [Mass/Vol] 1.0 E.U./dL 0.2 E.U/dL, 1.0 E.U/dL [facility] WBC LM.HPF (Urine sed) [#/Area] 0 - 5 [facility] URINE CULTUREon 08-29-2023 Bacteria identified Cx Nom (U) No Growth Normal [facility] Comment on above: Order Comment: For i ndwelling catheters, specimen collection is acceptable on catheter day 1 and 2 only. Sung top vacutainer. Urine must be to the fill line to process (4mls). If minimum volume, send urine in a yellow top vacutainer tube. Performed By: #### U R ####[facility] (DEFAULT)[address] [place], [place] [address] US RENAL TRANSPLANT SCANon 0 08-29-2023 US RENAL TRANSPLANT SCAN Normal [facility] US for transplanted kidney l imitedon 08-29-2023 RADIOLOGY RADIOLOGY [facility] Radiology Study observation (narrative) [facility] US for transplanted kidney l imitedOrdered By: Romana Matias on 08-29-2023 [facility] Work Phone: XR CHEST PORTABLEon 08-29-20 23 XR CHEST PORTABLE Normal [facility] BLOOD CULTUREon 08-28-2023 Bacteria identified Cx Nom (Unsp spec) NO GROWTH DAY 5 OF 5 Normal [facility] Comment on above: Order Comment: 2 Bot tles (1 Set - consists of 1 Aerobic bottle and 1 Anaerobic bottle) -1st Peripheral DrawFor syringe method draw:If able to obtain adequate sample (20 ml) inoculate anaerobic bottle firstIf inadequate sample obtained (less than 20 ml) inoculate aerobic bottle firstFor vacutainer method draw: Fill aerobic bottle first, then anaerobic Performed By: #### B LDCULT ####[facility] (DEFAULT)[address] [place] [address] Bacteria identified Cx Nom (Unsp spec) NO GROWTH DAY 5 OF 5 Normal [facility] Comment on above: Order Comment: 2 Bot tles (1 Set - consists of 1 Aerobic bottle and 1 Anaerobic bottle) -1st Peripheral DrawFor syringe method draw:If able to obtain adequate sample (20 ml) inoculate anaerobic bottle firstIf inadequate sample obtained (less than 20 ml) inoculate aerobic bottle firstFor vacutainer method draw: Fill aerobic bottle first, then anaerobic Performed By: #### B LDCULT ####[facility] (DEFAULT)[address] [place] [address] DARYL AURIS SCREEN BY PCRo n 08-28-2023 Daryl auris Screen by PCR Not detected Normal Not Detected [facility] Comment on above: Order Comment: This test was performed using a real-time PCR assay. This test was developed, and its performance characteristics determined by [facility]. It has not been cleared or approved by the FDA. The laboratory is regulated under CLIA as qualified to perform high-complexity testing. This test is used for clinical purposes. It should not be regarded as investigational or for research. Performed By: #### C ANDIDA AURIS SCREEN BY PCR ####[facility] (DEFAULT)[address] [place] [address] CBC AND ELECTRONIC DIFFon Abs Baso Auto < Normal 0.00-0.09 [facility] Comment on above: Performed By: #### L [id number] ####[facility] (DEFAULT)[address] [place] [address] Basophils/100 WBC (Bld) 0.6 % Normal [facility] Comment on above: Performed By: #### L [id number] ####[facility] (DEFAULT)[address] [facility] [place] [address] DIFF STATUS Electronic Differential Normal [facility] Comment on above: Performed By: #### L [id number] ####[facility] (DEFAULT)[address] [place] [address], [place] [address] Eosinophils (Bld) [#/Vol] 0.10 10*3/uL Normal 0.00-0.48 [facility] Comment on above: Performed By: #### L [id number] ####[facility] (DEFAULT)[address] [place] [address], [place] [address] Eosinophils/100 WBC (Bld) 2.1 % Normal [facility] Comment on above: Performed By: #### L [id number] ####[facility] (DEFAULT)[address] [place] [address], [place] [address] Hematocrit (Bld) [Volume fraction] 37.9 % Low 39.6-48.8 [facility] Comment on above: Performed By: #### L [id number] ####[facility] (DEFAULT)[address] [place] [address], [place] [address] Hemoglobin (Bld) [Mass/Vol] 12.4 g/dL Low 13.4-16.8 [facility] Comment on above: Performed By: #### L [id number] ####[facility] (DEFAULT)[address] [place] [address], [place] [address] Immature Grans % 0.6 % Normal [facility] Comment on above: Performed By: #### L [id number] ####[facility] (DEFAULT)[address] [place] [address], [place] [address] Immature Grans Absolute < Normal <=0.07 [facility] Comment on above: Performed By: #### L [id number] ####[facility] (DEFAULT)[address] [place] [address] Lymphocytes (Bld) [#/Vol] 1.76 10*3/uL Normal 0.83-3.57 [facility] Comment on above: Performed By: #### L [id number] ####[facility] (DEFAULT)[address] [place] [address] Lymphocytes/100 WBC (Bld) 37.1 % Normal [facility] Comment on above: Performed By: #### L [id number] ####[facility] (DEFAULT)[address] [facility] [address] MCV (RBC) [Entitic vol] 85.0 fL Normal 79.0-94.5 [facility] Comment on above: Performed By: #### L [id number] ####[facility] (DEFAULT)[address] [facility] [place] [address] Mean Cell Hgb 27.8 pg Normal 26.1-33.3 [facility] Comment on above: Performed By: #### L [id number] ####[facility] (DEFAULT)[address] [facility] [address] Mean Cell Hgb Conc 32.7 g/dL Normal 31.9-36.5 [facility] Comment on above: Performed By: #### L [id number] ####[facility] (DEFAULT)[address] [facility] [place] [address] Monocytes (Bld) [#/Vol] 0.66 10*3/uL Normal 0.24-0.93 [facility] Comment on above: Performed By: #### L [id number] ####[facility] (DEFAULT)[address] [facility] [place] [address] Monocytes/100 WBC (Bld) 13.9 % Normal [facility] Comment on above: Performed By: #### L [id number] ####[facility] (DEFAULT)[address] [place] [address] Nucleated RBC 0.0 /100 WBC Normal <=0.2 [facility] Comment on above: Performed By: #### L [id number] ####[facility] (DEFAULT)[address] [place] [address] Platelet mean volume (Bld) [Entitic vol] 9.3 fL Normal 8.7-12.3 [facility] Comment on above: Performed By: #### L [id number] ####[facility] (DEFAULT)[address] [place] [address] Platelets (Bld) [#/Vol] 262 10*3/uL Normal 146-337 [facility] Comment on above: Performed By: #### L [id number] ####[facility] (DEFAULT)[address] [place] [address] RBC (Bld) [#/Vol] 4.46 10*6/uL Normal 4.38-5.83 [facility] Comment on above: Performed By: #### L [id number] ####[facility] (DEFAULT)[address] [place] [address] RBC Distribution 13.4 % Normal 10.9-14.3 [facility] Comment on above: Performed By: #### L AB980 ####[facility] (DEFAULT)[address] [place] [address] Segs + Bands Auto 45.7 % Normal [facility] Comment on above: Performed By: #### L [id number] ####[facility] (DEFAULT)[address] [place] [address] Segs + Bands,Absolute Auto 2.16 K/uL Normal 1.57-6.19 [facility] Comment on above: Performed By: #### L [id number] ####[facility] (DEFAULT)[address] [place] [address] WBC (Bld) [#/Vol] 4.74 10*3/uL Normal 3.73-10.10 [facility] Comment on above: Performed By: #### L [id number] ####[facility] (DEFAULT)[address] [place] [address] Basophils (Bld) [#/Vol] K/uL 0.00 - 0.09 K/uL [facility] Basophils/100 WBC (Bld) 0.6 % [facility] Differential cell count method Nom (Bld) Electronic Differential [facility] Eosinophils (Bld) [#/Vol] 0.10 10*3/uL 0.00 - 0.48 K/uL [facility] Eosinophils/100 WBC (Bld) 2.1 % [facility] Erythrocyte distribution width (RBC) [Ratio] 13.4 % 10.9 - 14.3 % [facility] Hematocrit (Bld) [Volume fraction] 37.9 % Low 39.6 - 48.8 % [facility] Hemoglobin (Bld) [Mass/Vol] 12.4 g/dL Low 13.4 - 16.8 g/dL [facility] Immature granulocytes (Bld) [#/Vol] K/uL NINF - 0.07 K/uL [facility] Immature granulocytes/100 WBC (Bld) 0.6 % [facility] Interpretation and review of laboratory results Abnormal [facility] Lymphocytes (Bld) [#/Vol] 1.76 10*3/uL 0.83 - 3.57 K/uL [facility] Lymphocytes/100 WBC (Bld) 37.1 % [facility] MCH (RBC) [Entitic mass] 27.8 pg 26.1 - 33.3 pg [facility] MCHC (RBC) [Mass/Vol] 32.7 g/dL 31.9 - 36.5 g/dL [facility] MCV (RBC) [Entitic vol] 85.0 fL 79.0 - 94.5 fL [facility] Monocytes (Bld) [#/Vol] 0.66 10*3/uL 0.24 - 0.93 K/uL [facility] Monocytes/100 WBC (Bld) 13.9 % [facility] Neutrophils (Bld) [#/Vol] 2.16 10*3/uL 1.57 - 6.19 K/uL [facility] Nucleated RBC/100 WBC (Bld) [Ratio] 0.0 % [facility] Platelet mean volume (Bld) [Entitic vol] 9.3 fL 8.7 - 12.3 fL [facility] Platelets (Bld) [#/Vol] 262 10*3/uL 146 - 337 K/uL [facility] RBC (Bld) [#/Vol] 4.46 10*6/uL [facility] Segmented neutrophils/100 WBC (Bld) 45.7 % [facility] WBC (Bld) [#/Vol] 4.74 10*3/uL 3.73 - 10. 10 K/uL [facility] CHEM 6 (LYTES, BUN CREA)on 0 08-28-2023 Anion gap [Moles/Vol] 13 mmol/L Normal 7-17 [facility] Comment on above: Performed By: #### C HM6 ####[facility] (DEFAULT)[address] [place] [address] Chloride [Moles/Vol] 103 mmol/L Normal 98-108 [facility] Comment on above: Performed By: #### C HM6 ####[facility] (DEFAULT)[address] [place] [address] CO2 [Moles/Vol] 22 mmol/L Normal 21-31 [facility] Comment on above: Performed By: #### C HM6 ####[facility] (DEFAULT)[address] [place] [address] Creatinine [Mass/Vol] 1.62 mg/dL High 0.70-1.30 [facility] Comment on above: Performed By: #### C HM6 ####[facility] (DEFAULT)[address] [place] [address] GFR/1.73 sq M.predicted among non-blacks MDRD (S/P/Bld) [Vol rate/Area] 51 mL/min/{1.73_m2} Low >=60 [facility] Comment on above: Result Comment: Repo rted eGFR is based on the CKD-EPI 2020 equation using creatinine, age, and sex. Performed By: #### C HM6 ####[facility] (DEFAULT)[address] [place] [address], [place] [address] Potassium [Moles/Vol] 4.3 mmol/L Normal 3.5-5.0 [facility] Comment on above: Performed By: #### C HM6 ####[facility] (DEFAULT)[address] [facility] [address] Sodium [Moles/Vol] 134 mmol/L Low 135-145 [facility] Comment on above: Performed By: #### C HM6 ####[facility] (DEFAULT)[address] [facility] [address] Urea nitrogen [Mass/Vol] 22 mg/dL Normal 7-25 [facility] Comment on above: Performed By: #### C HM6 ####[facility] (DEFAULT)[address] [facility] [address] Urea nitrogen/Creatinine [Mass ratio] 14 mg/mg Normal [facility] Comment on above: Performed By: #### C HM6 ####[facility] (DEFAULT)[address] [place] [address], [place] [address] Anion gap [Moles/Vol] 13 mmol/L 7 - 17 mmol/L [facility] Chloride [Moles/Vol] 103 mmol/L 98 - 10 8 mmol/L [facility] CO2 [Moles/Vol] 22 mmol/L 21 - 31 mmol/L [facility] Creatinine [Mass/Vol] 1.62 mg/dL High 0.70 - 1.30 mg/dL [facility] eGFR, CKD-EPI, Male 51 Low - PINF [facility] Interpretation and review of laboratory results Abnormal [facility] Potassium [Moles/Vol] 4.3 mmol/L 3.5 - 5.0 mmol/L [facility] Sodium [Moles/Vol] 134 mmol/L Low 135 - 145 mmol/L [facility] Urea nitrogen [Mass/Vol] 22 mg/dL 7 - 25 mg/dL [facility] Urea nitrogen/Creatinine [Mass ratio] 14 mg/mg [facility] IMMUNOCOMPROMISED RESPIRATOR Y PANELon 08-28-2023 Adenovirus - Pcr Not detected Normal Not Detected [facility] Comment on above: Order Comment: Viral transport [...] acid assay. Performed By: #### I CRESP ####[facility] (DEFAULT)[address] [place] [address] Bordetella Parapertussis Not detected Normal Not Detected [facility] Comment on above: Order Comment: Viral transport [...] acid assay. Performed By: #### I CRESP ####[facility] (DEFAULT)[address] [facility] [address] Bordetella Pertussis Not detected Normal Not Detected [facility] Comment on above: Order Comment: Viral transport [...] acid assay. Performed By: #### I CRESP ####[facility] (DEFAULT)[address] [place] [address], [place] [address] Chlamydia Pneumoniae Not detected Normal Not Detected [facility] Comment on above: Order Comment: Viral transport [...] acid assay. Performed By: #### I CRESP ####[facility] (DEFAULT)[address] [place] [address], [place] [address] Coronavirus 229E Not detected Normal Not Detected [facility] Comment on above: Order Comment: Viral transport [...] acid assay. Performed By: #### I CRESP ####[facility] (DEFAULT)[address] [place] [address], [place] [address] Coronavirus Hku1 Not detected Normal Not Detected [facility] Comment on above: Order Comment: Viral transport [...] acid assay. Performed By: #### I CRESP ####[facility] (DEFAULT)[address] [place] [address], [place] [address] Coronavirus Nl63 Not detected Normal Not Detected [facility] Comment on above: Order Comment: Viral transport [...] acid assay. Performed By: #### I CRESP ####[facility] (DEFAULT)[address] [place] [address], [place] [address] Coronavirus Oc43 Not detected Normal Not Detected [facility] Comment on above: Order Comment: Viral transport [...] acid assay. Performed By: #### I CRESP ####[facility] (DEFAULT)[address] [place] [address], [place] [address] Influenza A - Pcr Not detected Normal Not Detected [facility] Comment on above: Order Comment: Viral [...] assay. Performed By: #### I CRESP ####[facility] (DEFAULT)[address] [place] [address], [place] [address] Influenza B - Pcr Not detected Normal Not Detected [facility] Comment on above: Order Comment: Viral [...] assay. Performed By: #### I CRESP ####[facility] (DEFAULT)[address] [place] [address], [place] [address] Metapneumovirus - Pcr Not detected Normal Not Detected [facility] Comment on above: Order Comment: Viral transport [...] acid assay. Performed By: #### I CRESP ####[facility] (DEFAULT)[address] [place] [address] Mycoplasma Pneumoniae Not detected Normal Not Detected [facility] Comment on above: Order Comment: Viral transport [...] acid assay. Performed By: #### I CRESP ####[facility] (DEFAULT)[address] [place] [address], [place] [address] Parainfluenza 1 - Pcr Not detected Normal Not Detected [facility] Comment on above: Order Comment: Viral transport [...] acid assay. Performed By: #### I CRESP ####[facility] (DEFAULT)[address] [place] [address], [place] [address] Parainfluenza 2 - Pcr Not detected Normal Not Detected [facility] Comment on above: Order Comment: Viral transport [...] acid assay. Performed By: #### I CRESP ####[facility] (DEFAULT)[address] [place] [address] Parainfluenza 3 - Pcr Not detected Normal Not Detected [facility] Comment on above: Order Comment: Viral transport [...] acid assay. Performed By: #### I CRESP ####[facility] (DEFAULT)[address] [place] [address], [place] [address] Parainfluenza 4 - Pcr Not detected Normal Not Detected [facility] Comment on above: Order Comment: Viral transport [...] acid assay. Performed By: #### I CRESP ####[facility] (DEFAULT)[address] [place] [address], [place] [address] Rhinovirus/Enterovir us - PCR Not detected Normal Not Detected [facility] Comment on above: Order Comment: Viral transport [...] acid assay. Performed By: #### I CRESP ####[facility] (DEFAULT)[address] [place] [address], [place] [address] Rsv - Pcr Not detected Normal Not Detected [facility] Comment on above: Order Comment: Viral transport [...] acid assay. Performed By: #### I CRESP ####[facility] (DEFAULT)[address] [place] [address] SARS-CoV-2 (COVID-19) RNA ESTELITA+probe Ql (Unsp spec) Not detected Normal NOT DETECTED [facility] Comment on above: Order Comment: Viral transport [...] acid assay. Performed By: #### I CRESP ####[facility] (DEFAULT)[address] [place] [address] Portable XR Chest Viewson Radiology Study observation (narrative) [facility] Respiratory virus DNA+RNA NA A+probe Nom (Unsp spec)Ordered By: Dayami Harris on 08-28-2023 Adenovirus DNA ESTELITA+probe Nom (Unsp spec) Not detected Not Detected [facility] B. parapertussis DNA ESTELITA+probe Ql (Unsp spec) Not detected Not Detected [facility] B. pertussis DNA ESTELITA+probe Ql (Unsp spec) Not detected Not Detected [facility] C. pneumoniae DNA ESTELITA+probe Ql (Unsp spec) Not detected Not Detected [facility] FLUAV RNA ESTELITA+probe Ql (Unsp spec) Not detected Not Detected [facility] FLUBV RNA ESTELITA+probe Ql (Unsp spec) Not detected Not Detected [facility] HCoV 229E RNA ESTELITA+non-probe Ql (Nph) Not detected Not Detected [facility] HCoV HKU1 RNA ESTELITA+non-probe Ql (Nph) Not detected Not Detected [facility] HCoV NL63 RNA ESTELITA+non-probe Ql (Nph) Not detected Not Detected [facility] HCoV OC43 RNA ESTELITA+non-probe Ql (Nph) Not detected Not Detected [facility] hMPV A RNA ESTELITA+probe Ql (Unsp spec) Not detected Not Detected [facility] Interpretation and review of laboratory results Normal [facility] M. pneumoniae DNA ESTELITA+probe Ql (Unsp spec) Not detected Not Detected [facility] Parainfluenza virus 1 RNA ESTELITA+probe Ql (Unsp spec) Not detected Not Detected [facility] Parainfluenza virus 2 RNA ESTELITA+probe Ql (Unsp spec) Not detected Not Detected [facility] Parainfluenza virus 3 RNA ESTELITA+probe Ql (Unsp spec) Not detected Not Detected [facility] Parainfluenza virus 4 RNA ESTELITA+probe Ql (Unsp spec) Not detected Not Detected [facility] Rhinovirus+Enterovir us RNA ESTELITA+probe Ql (Unsp spec) Not detected Not Detected [facility] RSV RNA ESTELITA+probe Ql (Unsp spec) Not detected Not Detected [facility] SARS-CoV-2 (COVID-19) RNA ESTELITA+probe Ql (Unsp spec) Not detected NOT DETECTED [facility] ALBUMINon 04-28-2023 Albumin [Mass/Vol] 4.0 g/dL Normal 3.4-5.0 [facility] Comment on above: Performed By: #### C MP #### [facility] [address] [place] [address] Dr. Dwight Waters ALKALINE PHOSPHAon 3 ALP [Catalytic activity/Vol] 106 U/L Normal 46-116 [facility] Comment on above: Performed By: #### F [id number] #### [facility] [address] [place] [address] Dr. Dwight Waters BILIRUBIN CONJUGATED (DIRECT )on 04-28-2023 BILI, CONJUGATED 0.3 mg/dL Critically high 0.0-0.2 [facility] Comment on above: Performed By: #### C MP #### [facility] [address] [place] [address] Dr. Dwight Waters BILIRUBIN TOTALon 04-28-2023 Bilirubin [Mass/Vol] 1.4 mg/dL Critically high 0.2-1.0 [facility] Comment on above: Performed By: #### C MP #### [facility] [address] [place] [address] Dr. Dwight Waters BUNon 04-28-2023 Urea nitrogen [Mass/Vol] 12.0 mg/dL Normal 7.0-18.0 [facility] Comment on above: Performed By: #### U RTPCR #### [facility] [address] [place] [address] Dr. Dwight Waters CALCIUMon 04-28-2023 Calcium [Mass/Vol] 9.3 mg/dL Normal 8.5-10.1 [facility] Comment on above: Performed By: #### U RTPCR #### [facility] [address] [place] [address] Dr. Dwight Waters CBC AUTO DIFFon 04-28-2023 BASO # 0.1 103/ul Normal 0.0-0.1 [facility] Comment on above: Performed By: #### C BC #### [facility] [address] [place] [address] Dr. Dwight Waters Basophils/100 WBC (Bld) 0.9 % Normal 0.2-2.0 [facility] Comment on above: Performed By: #### C BC #### [facility] [address] [place] [address] Dr. Dwight Waters EO # 0.2 103/ul Normal 0.0-0.7 [facility] Comment on above: Performed By: #### C BC #### [facility] [address] [place] [address] Dr. Dwight Waters Eosinophils/100 WBC (Bld) 3.8 % Normal 0.9-7.0 [facility] Comment on above: Performed By: #### C BC #### [facility] [address] [place] [address] Dr. Dwight Waters Erythrocyte distribution width (RBC) [Ratio] 12.5 % Normal 11.0-15.0 [facility] Comment on above: Performed By: #### C BC #### [facility] [address] [place] [address] Dr. Dwight Waters Hematocrit (Bld) [Volume fraction] 49.8 % Normal 42.0-54.0 [facility] Comment on above: Performed By: #### C BC #### [facility] [address] [place] [address] Dr. Dwight Waters Hemoglobin (Bld) [Mass/Vol] 16.4 g/dL Normal 14.0-18.0 [facility] Comment on above: Performed By: #### C BC #### [facility] [address] [place] [address] Dr. Dwight Waters IG # 0.01 10e3/ul Normal 0.00-0.03 [facility] Comment on above: Performed By: #### C BC #### [facility] [address] [place] [address] Dr. Dwight Waters IG % 0.2 % Normal 0.0-0.5 [facility] Comment on above: Performed By: #### C BC #### [facility] [address] [place] [address] Dr. Dwight Waters LYMPH # 2.1 103/ul Normal 1.2-3.8 [facility] Comment on above: Performed By: #### C BC #### [facility] [address] [place] [address] Dr. Dwight Waters Lymphocytes/100 WBC (Bld) 39.1 % Normal 20.5-60.0 [facility] Comment on above: Performed By: #### C BC #### [facility] [address] [place] [address] Dr. Dwight Waters MANUAL DIFF REQ NO Normal [facility] Comment on above: Performed By: #### C BC #### [facility] [address] [place] [address] Dr. Dwight Waters MCH (RBC) [Entitic mass] 28.6 pg Normal 25.9-34.0 [facility] Comment on above: Performed By: #### C BC #### [facility] [address] [place] [address] Dr. Dwight Waters MCHC (RBC) [Mass/Vol] 32.9 g/dL Normal 29.9-35.2 [facility] Comment on above: Performed By: #### C BC #### [facility] [address] [place] [address] Dr. Dwight Waters MCV (RBC) [Entitic vol] 86.9 fL Normal 80.0-94.0 [facility] Comment on above: Performed By: #### C BC #### [facility] [address] [place] [address] Dr. Dwight Waters MONO # 0.6 103/ul Normal 0.3-0.8 [facility] Comment on above: Performed By: #### C BC #### [facility] [address] [place] [address] Dr. Dwight Waters Monocytes/100 WBC (Bld) 10.6 % Normal 1.7-12.0 [facility] Comment on above: Performed By: #### C BC #### [facility] [address] [place] [address] Dr. Dwight Waters NEUT # 2.5 103/ul Normal 1.4-6.5 [facility] Comment on above: Performed By: #### C BC #### [facility] [address] [place] [address] Dr. Dwight Waters Neutrophils/100 WBC (Bld) 45.4 % Normal 43.0-75.0 [facility] Comment on above: Performed By: #### C BC #### [facility] [address] [place] [address] Dr. Dwight Waters Platelet mean volume (Bld) [Entitic vol] 9.3 fL Critically low 9.5-13.5 [facility] Comment on above: Performed By: #### C BC #### [facility] [address] [place] [address] Dr. Dwight Waters PLT 248 103/ul Normal 150-450 [facility] Comment on above: Performed By: #### C BC #### [facility] [address] [place] [address] Dr. Dwight Waters RBC 5.73 106/ul Normal 4.70-6.10 [facility] Comment on above: Performed By: #### C BC #### [facility] [address] [place] [address] Dr. Dwight Waters WBC 5.5 103/ul Normal 4.0-11.0 [facility] Comment on above: Performed By: #### C BC #### [facility] [address] [place] [address] Dr. Dwight Waters CHLORIDEon 04-28-2023 Chloride [Moles/Vol] 107 mmol/L Normal 98-107 [facility] Comment on above: Performed By: #### U RTPCR #### [facility] [address] [place] [address] Dr. Dwight Waters CO2on 04-28-2023 CO2 [Moles/Vol] 28.9 mmol/L Normal 21.0-32.0 [facility] Comment on above: Performed By: #### U RTPCR #### [facility] [address] [place] [address] Dr. Dwight Waters CREATININEon 04-28-2023 Creatinine [Mass/Vol] 1.17 mg/dL Normal 0.70-1.30 [facility] Comment on above: Performed By: #### U RTPCR #### [facility] [address] [place] [address] Dr. Dwight Waters EGFR-AF GRENADIAN >60 Normal >=60 [facility] Comment on above: Performed By: #### U RTPCR #### [facility] [address] [address] [address] Dwight Waters EGFR-NON AF GRENADIAN >60 Normal >=60 [facility] Comment on above: Performed By: #### U RTPCR #### [facility] [address] [place] [address] Dr. Dwight Waters GGTon 04-28-2023 Gamma glutamyl transferase [Catalytic activity/Vol] 27 U/L Normal 15-85 [facility] Comment on above: Performed By: #### U RTPCR #### [facility] [address] [address] [address] Dwight Waters GLUCOSE BLOODon 04-28-2023 Glucose [Mass/Vol] 110 mg/dL Critically high 74-106 [facility] Comment on above: Performed By: #### U RTPCR #### [facility] [address] [place] [address] Dr. Dwight Waters MAGNESIUMon 04-28-2023 Magnesium [Mass/Vol] 1.7 mg/dL Critically low 1.8-2.4 [facility] Comment on above: Performed By: #### U RTPCR #### [facility] [address] [place] [address] Dr. Dwight Waters NAon 04-28-2023 Sodium [Moles/Vol] 144 mmol/L Normal 136-145 [facility] Comment on above: Performed By: #### U RTPCR #### [facility] [address] [place] [address] Dr. Dwight Waters PHOSPHORUSon 04-28-2023 Phosphate [Mass/Vol] 3.2 mg/dL Normal 2.6-4.7 [facility] Comment on above: Performed By: #### U RTPCR #### [facility] [address] [place] [address] Dr. Dwight Waters POTASSIUMon 04-28-2023 Potassium [Moles/Vol] 4.0 mmol/L Normal 3.5-5.1 [facility] Comment on above: Performed By: #### U RTPCR #### [facility] [address] [place] [address] Dr. Dwight Waters SGOTon 04-28-2023 AST [Catalytic activity/Vol] 25 U/L Normal 15-37 [facility] Comment on above: Performed By: #### C MP #### [facility] [address] [place] [address] Dr. Dwight Waters SGPTon 04-28-2023 ALT [Catalytic activity/Vol] 40 U/L Normal 16-63 [facility] Comment on above: Performed By: #### C MP #### [facility] [address] [place] [address] Dr. Dwight Waters URINE T PROTEIN CREAT RATIOo n 04-28-2023 Protein (U) [Mass/Vol] 10.1 mg/dL Normal <=12.0 [facility] Comment on above: Performed By: #### U RTPCR #### [facility] [address] [place] [address] Dr. Dwight Waters UR PROT CREAT RAT 0.14 Normal [facility] Comment on above: Performed By: #### U RTPCR #### [facility] [address] [place] [address] Dr. Dwight Waters URINE CREAT 74.40 mg/dL Normal 20.00-300.00 [facility] Comment on above: Performed By: #### U RTPCR #### [facility] [address] [place] [address] Dr. Dwight Waters Office Visiton 04-13-2023 Follow-up visit [id number] George Styles 1970 M Date Provider Department Center 04/13/2023 MIGUEL PARADA [facility] Family History Problem Relation Age of Onset Coronary artery disease Mother Coronary artery disease Father Family Status - Relation Status Age at Mother Father Level of Service:49221 NM OFFICE/OUTPATIENT ESTABLISHED LOW MDM 20-29 MIN Reason for Visit and Comments: Hypertension [995027] Hyperlipidemia [182] Normal [facility] BK VIRUS PCR QUANTon 023 BKV DNA QUANT PCR PLASMA Negative Normal Negative [facility] Comment on above: Result Comment: No B K DNA detected. . The linear range of the assay is 22 - 100,000,000 IU/mL. Performed By: #### B KVIRUS #### [facility] [address] [place] [address] Dr. Dwight Waters Log10 BKV DNA Plasma Normal [facility] Comment on above: Performed By: #### B KVIRUS #### [facility] [address] [place] [address] Dr. Dwight Waters FK506 (TACROLIMUS) WHOLE BLO ODon 03-04-2023 Tacrolimus (FK506), Blood 5.9 ng/mL Normal 2.0-20.0 [facility] Comment on above: Result Comment: Trou gh (immediately following transplant) 15.0 . Trough (steady state, 2 weeks or more after transplant): 3.0 - 8.0 . Performed by LC-MS/MS technology. Performed By: #### C MP #### [facility] [address] [place] [address] Dr. Dwight Waters ALBUMINon 03-02-2023 Albumin [Mass/Vol] 3.9 g/dL Normal 3.4-5.0 [facility] Comment on above: Performed By: #### U RTPCR #### [facility] [address] [place] [address] Dr. Dwight Waters ALKALINE PHOSPHAon ALP [Catalytic activity/Vol] 105 U/L Normal 46-116 [facility] Comment on above: Performed By: #### U RTPCR #### [facility] [address] [place] [address] Dr. Dwight Waters BILIRUBIN CONJUGATED (DIRECT )on 03-02-2023 BILI, CONJUGATED 0.2 mg/dL Normal 0.0-0.2 [facility] Comment on above: Performed By: #### U RTPCR #### [facility] [address] [place] [address] Dr. Dwight Waters BILIRUBIN TOTALon 03-02-2023 Bilirubin [Mass/Vol] 0.9 mg/dL Normal 0.2-1.0 [facility] Comment on above: Performed By: #### U RTPCR #### [facility] [address] [place] [address] Dr. Dwight Waters CBC AUTO DIFFon 03-02-2023 BASO # 0.1 103/ul Normal 0.0-0.1 [facility] Comment on above: Performed By: #### C BC #### [facility] [address] [place] [address] Dr. Dwight Waters Basophils/100 WBC (Bld) 0.9 % Normal 0.2-2.0 [facility] Comment on above: Performed By: #### C BC #### [facility] [address] [place] [address] Dr. Dwight Waters EO # 0.2 103/ul Normal 0.0-0.7 [facility] Comment on above: Performed By: #### C BC #### [facility] [address] [place] [address] Dr. Dwight Waters Eosinophils/100 WBC (Bld) 3.5 % Normal 0.9-7.0 [facility] Comment on above: Performed By: #### C BC #### [facility] [address] [place] [address] Dr. Dwight Waters Erythrocyte distribution width (RBC) [Ratio] 12.7 % Normal 11.0-15.0 [facility] Comment on above: Performed By: #### C BC #### [facility] [address] [place] [address] Dr. Dwight Waters Hematocrit (Bld) [Volume fraction] 48.2 % Normal 42.0-54.0 [facility] Comment on above: Performed By: #### C BC #### [facility] [address] [place] [address] Dr. Dwight Waters Hemoglobin (Bld) [Mass/Vol] 15.9 g/dL Normal 14.0-18.0 [facility] Comment on above: Performed By: #### C BC #### [facility] [address] [place] [address] Dr. Dwight Waters IG # 0.01 10e3/ul Normal 0.00-0.03 [facility] Comment on above: Performed By: #### C BC #### [facility] [address] [place] [address] Dr. Dwight Waters IG % 0.2 % Normal 0.0-0.5 [facility] Comment on above: Performed By: #### C BC #### [facility] [address] [place] [address] Dr. Dwight Waters LYMPH # 2.1 103/ul Normal 1.2-3.8 [facility] Comment on above: Performed By: #### C BC #### [facility] [address] [place] [address] Dr. Dwight Waters Lymphocytes/100 WBC (Bld) 37.4 % Normal 20.5-60.0 [facility] Comment on above: Performed By: #### C BC #### [facility] [address] [place] [address] Dr. Dwight Waters MANUAL DIFF REQ NO Normal [facility] Comment on above: Performed By: #### C BC #### [facility] [address] [place] [address] Dr. Dwight Waters MCH (RBC) [Entitic mass] 28.3 pg Normal 25.9-34.0 [facility] Comment on above: Performed By: #### C BC #### [facility] [address] [place] [address] Dr. Dwight Waters MCHC (RBC) [Mass/Vol] 33.0 g/dL Normal 29.9-35.2 [facility] Comment on above: Performed By: #### C BC #### [facility] [address] [place] [address] Dr. Dwight Waters MCV (RBC) [Entitic vol] 85.8 fL Normal 80.0-94.0 [facility] Comment on above: Performed By: #### C BC #### [facility] [address] [place] [address] Dr. Dwight Waters MONO # 0.6 103/ul Normal 0.3-0.8 [facility] Comment on above: Performed By: #### C BC #### [facility] [address] [place] [address] Dr. Dwight Waters Monocytes/100 WBC (Bld) 10.2 % Normal 1.7-12.0 [facility] Comment on above: Performed By: #### C BC #### [facility] [address] [place] [address] Dr. Dwight Waters NEUT # 2.7 103/ul Normal 1.4-6.5 [facility] Comment on above: Performed By: #### C BC #### [facility] [address] [place] [address] Dr. Dwight Waters Neutrophils/100 WBC (Bld) 47.8 % Normal 43.0-75.0 [facility] Comment on above: Performed By: #### C BC #### [facility] [address] [place] [address] Dr. Dwight Waters Platelet mean volume (Bld) [Entitic vol] 9.3 fL Critically low 9.5-13.5 [facility] Comment on above: Performed By: #### C BC #### [facility] [address] [place] [address] Dr. Dwight Waters PLT 241 103/ul Normal 150-450 [facility] Comment on above: Performed By: #### C BC #### [facility] [address] [place] [address] Dr. Dwight Waters RBC 5.62 106/ul Normal 4.70-6.10 [facility] Comment on above: Performed By: #### C BC #### [facility] [address] [place] [address] Dr. Dwight Waters WBC 5.7 103/ul Normal 4.0-11.0 [facility] Comment on above: Performed By: #### C BC #### [facility] [address] [place] [address] Dr. Dwight Waters GGTon 03-02-2023 Gamma glutamyl transferase [Catalytic activity/Vol] 25 U/L Normal 15-85 [facility] Comment on above: Performed By: #### U RTPCR #### [facility] [address] [place] [address] Dr. Dwight Waters MAGNESIUMon 03-02-2023 Magnesium [Mass/Vol] 1.6 mg/dL Critically low 1.8-2.4 [facility] Comment on above: Performed By: #### U RTPCR #### [facility] [address] [place] [address] Dr. Dwight Waters PHOSPHORUSon 03-02-2023 Phosphate [Mass/Vol] 3.6 mg/dL Normal 2.6-4.7 [facility] Comment on above: Performed By: #### U RTPCR #### [facility] [address] [place] [address] Dr. Dwight Waters PROF CHEM 8 (BAS METB)on Anion gap [Moles/Vol] 9.4 mmol/L Normal [facility] Comment on above: Performed By: #### U RTPCR #### [facility] [address] [place] [address] Dr. Dwight Waters Calcium [Mass/Vol] 9.3 mg/dL Normal 8.5-10.1 [facility] Comment on above: Performed By: #### U RTPCR #### [facility] [address] [place] [address] Dr. Dwight Waters Chloride [Moles/Vol] 108 mmol/L Critically high 98-107 [facility] Comment on above: Performed By: #### U RTPCR #### [facility] [address] [place] [address] Dr. Dwight Waters CO2 [Moles/Vol] 27.2 mmol/L Normal 21.0-32.0 [facility] Comment on above: Performed By: #### U RTPCR #### [facility] [address] [place] [address] Dr. Dwight Waters Creatinine [Mass/Vol] 1.12 mg/dL Normal 0.70-1.30 [facility] Comment on above: Performed By: #### U RTPCR #### [facility] [address] [place] [address] Dr. Dwight Waters EGFR-AF GRENADIAN >60 Normal >=60 [facility] Comment on above: Performed By: #### U RTPCR #### [facility] [address] [place] [address] Dr. Dwight Waters EGFR-NON AF GRENADIAN >60 Normal >=60 [facility] Comment on above: Performed By: #### U RTPCR #### [facility] [address] [place] [address] Dr. Dwight Waters Glucose [Mass/Vol] 113 mg/dL Critically high 74-106 [facility] Comment on above: Performed By: #### U RTPCR #### [facility] [address] [address] [address] Dwight Waters Potassium [Moles/Vol] 3.6 mmol/L Normal 3.5-5.1 [facility] Comment on above: Performed By: #### U RTPCR #### [facility] [address] [place] [address] Dr. Dwight Waters Sodium [Moles/Vol] 141 mmol/L Normal 136-145 [facility] Comment on above: Performed By: #### U RTPCR #### [facility] [address] [place] [address] Dr. Dwight Waters Urea nitrogen [Mass/Vol] 14.0 mg/dL Normal 7.0-18.0 [facility] Comment on above: Performed By: #### U RTPCR #### [facility] [address] [place] [address] Dr. Dwight Waters Urea nitrogen/Creatinine [Mass ratio] 12.5 mg/mg Normal [facility] Comment on above: Performed By: #### U RTPCR #### [facility] [address] [place] [address] Dr. Dwight Waters SGOTon 03-02-2023 AST [Catalytic activity/Vol] 20 U/L Normal 15-37 [facility] Comment on above: Performed By: #### U RTPCR #### [facility] [address] [place] [address] Dr. Dwight OLVERAPTon 03-02-2023 ALT [Catalytic activity/Vol] 30 U/L Normal 16-63 [facility] Comment on above: Performed By: #### U RTPCR #### [facility] [address] [place] [address] Dr. Dwight Waters URINE T PROTEIN CREAT RATIOo n 03-02-2023 Protein (U) [Mass/Vol] 10.3 mg/dL Normal <=12.0 [facility] Comment on above: Performed By: #### U RTPCR #### [facility] [address] [place] [address] Dr. Dwight Waters UR PROT CREAT RAT 0.15 Normal [facility] Comment on above: Performed By: #### U RTPCR #### [facility] [address] [place] [address] Dr. Dwight Waters URINE CREAT 68.96 mg/dL Normal 20.00-300.00 [facility] Comment on above: Performed By: #### U RTPCR #### [facility] [address] [place] [address] Dr. Dwight Waters BK VIRUS PCR QUANTon 023 BKV DNA QUANT PCR PLASMA Negative Normal Negative [facility] Comment on above: Result Comment: No B K DNA detected. . The linear range of the assay is 22 - 100,000,000 IU/mL. Performed By: #### C MP #### [facility] [address] [place] [address] Dr. Dwight Waters Log10 BKV DNA Plasma Normal [facility] Comment on above: Performed By: #### C MP #### [facility] [address] [place] [address] Dr. Dwight Waters FK506 (TACROLIMUS) WHOLE BLO ODon 12-31-2022 Tacrolimus (FK506), Blood 5.6 ng/mL Normal 2.0-20.0 [facility] Comment on above: Result Comment: Trou gh (immediately following transplant) 15.0 . Trough (steady state, 2 weeks or more after transplant): 3.0 - 8.0 . Performed by LC-MS/MS technology. Performed By: #### C MP #### [facility] [address] [place] [address] Dr. Dwight Waters ALKALINE PHOSPHAon ALP [Catalytic activity/Vol] 96 U/L Normal 46-116 [facility] Comment on above: Performed By: #### C BC #### [facility] [address] [place] [address] Dr. Dwight Waters BILIRUBIN CONJUGATED (DIRECT )on 12-29-2022 BILI, CONJUGATED 0.3 mg/dL Critically high 0.0-0.2 [facility] Comment on above: Performed By: #### C BC #### [facility] [address] [place] [address] Dr. Dwight Waters BILIRUBIN TOTALon 12-29-2022 Bilirubin [Mass/Vol] 1.1 mg/dL Critically high 0.2-1.0 [facility] Comment on above: Performed By: #### C BC #### [facility] [address] [place] [address] Dr. Dwight Waters CBC AUTO DIFFon 12-29-2022 BASO # 0.1 103/ul Normal 0.0-0.1 [facility] Comment on above: Performed By: #### C MP #### [facility] [address] [place] [address] Dr. Dwight Waters Basophils/100 WBC (Bld) 0.8 % Normal 0.2-2.0 [facility] Comment on above: Performed By: #### C MP #### [facility] [address] [place] [address] Dr. Dwight Waters EO # 0.2 103/ul Normal 0.0-0.7 [facility] Comment on above: Performed By: #### C MP #### [facility] [address] [place] [address] Dr. Dwight Waters Eosinophils/100 WBC (Bld) 3.0 % Normal 0.9-7.0 [facility] Comment on above: Performed By: #### C MP #### [facility] [address] [place] [address] Dr. Dwight Waters Erythrocyte distribution width (RBC) [Ratio] 12.9 % Normal 11.0-15.0 [facility] Comment on above: Performed By: #### C MP #### [facility] [address] [place] [address] Dr. Dwight Waters Hematocrit (Bld) [Volume fraction] 46.9 % Normal 42.0-54.0 [facility] Comment on above: Performed By: #### C MP #### [facility] [address] [place] [address] Dr. Dwight Waters Hemoglobin (Bld) [Mass/Vol] 16.1 g/dL Normal 14.0-18.0 [facility] Comment on above: Performed By: #### C MP #### [facility] [address] [place] [address] Dr. Dwight Waters IG # 0.01 10e3/ul Normal 0.00-0.03 [facility] Comment on above: Performed By: #### C MP #### [facility] [address] [place] [address] Dr. Dwight Waters IG % 0.2 % Normal 0.0-0.5 [facility] Comment on above: Performed By: #### C MP #### [facility] [address] [place] [address] Dr. Dwight Waters LYMPH # 1.8 103/ul Normal 1.2-3.8 [facility] Comment on above: Performed By: #### C MP #### [facility] [address] [place] [address] Dr. Dwight Waters Lymphocytes/100 WBC (Bld) 27.9 % Normal 20.5-60.0 [facility] Comment on above: Performed By: #### C MP #### [facility] [address] [place] [address] Dr. Dwight Waters MANUAL DIFF REQ NO Normal [facility] Comment on above: Performed By: #### C MP #### [facility] [address] [place] [address] Dr. Dwight Waters MCH (RBC) [Entitic mass] 28.5 pg Normal 25.9-34.0 [facility] Comment on above: Performed By: #### C MP #### [facility] [address] [place] [address] Dr. Dwight Waters MCHC (RBC) [Mass/Vol] 34.3 g/dL Normal 29.9-35.2 [facility] Comment on above: Performed By: #### C MP #### [facility] [address] [address] [address] Dwight Waters MCV (RBC) [Entitic vol] 83.2 fL Normal 80.0-94.0 [facility] Comment on above: Performed By: #### C MP #### [facility] [address] [address] [address] Dwight Waters MONO # 0.5 103/ul Normal 0.3-0.8 [facility] Comment on above: Performed By: #### C MP #### [facility] [address] [address] [address] Dwight Waters Monocytes/100 WBC (Bld) 8.1 % Normal 1.7-12.0 [facility] Comment on above: Performed By: #### C MP #### [facility] [address] [address] [address] Dwight Waters NEUT # 3.8 103/ul Normal 1.4-6.5 [facility] Comment on above: Performed By: #### C MP #### [facility] [address] [address] [address] Dwight Waters Neutrophils/100 WBC (Bld) 60.0 % Normal 43.0-75.0 [facility] Comment on above: Performed By: #### C MP #### [facility] [address] [address] [address] Dwight Waters Platelet mean volume (Bld) [Entitic vol] 9.2 fL Critically low 9.5-13.5 [facility] Comment on above: Performed By: #### C MP #### [facility] [address] [address] [address] Dwight Waters PLT 225 103/ul Normal 150-450 [facility] Comment on above: Performed By: #### C MP #### [facility] [address] [address] [address] Dwight Waters RBC 5.64 106/ul Normal 4.70-6.10 [facility] Comment on above: Performed By: #### C MP #### [facility] [address] [address] [address] Dwight Waters WBC 6.3 103/ul Normal 4.0-11.0 [facility] Comment on above: Performed By: #### C MP #### [facility] [address] [address] [address] Dwight Waters GGTon 12-29-2022 Gamma glutamyl transferase [Catalytic activity/Vol] 24 U/L Normal 15-85 [facility] Comment on above: Performed By: #### C MP #### [facility] [address] [address] [address] Dwight Waters LIPID PROFILEon 12-29-2022 CHOL-HDL RATIO NORM SEE BELOW Normal [facility] Comment on above: Result Comment: 3.3 - 4.4 LOW RISK 4.4 - 7.1 AVERAGE RISK 7.1 - 11.0 MODERATE RISK >11.0 HIGH RISK Performed By: #### U RTPCR #### [facility] [address] [place] [address] Dr. Dwight Waters Cholesterol [Mass/Vol] 87 mg/dL Normal <=200 [facility] Comment on above: Performed By: #### U RTPCR #### [facility] [address] [place] [address] Dr. Dwight Waters Cholesterol in HDL [Mass/Vol] 44 mg/dL Normal 40-60 [facility] Comment on above: Performed By: #### U RTPCR #### [facility] [address] [place] [address] Dr. Dwight Waters Cholesterol in LDL [Mass/Vol] 33.0 mg/dL Normal [facility] Comment on above: Performed By: #### U RTPCR #### [facility] [address] [place] [address] Dr. Dwight Waters Cholesterol.total/Ch olesterol in HDL [Mass ratio] 2.0 {ratio} Normal [facility] Comment on above: Performed By: #### U RTPCR #### [facility] [address] [place] [address] Dr. Dwight Waters HDL NORMAL > or = 60 mg/dl - LO W CARDIOVASCULAR RISK <40 mg/dl - HIGH CARDIOVASCULAR RISK Normal [facility] Comment on above: Performed By: #### U RTPCR #### [facility] [address] [address] [address] Dwight Waters LDL CALC NORMAL SEE BELOW Normal [facility] Comment on above: Result Comment: <100 mg/dl OPTIMAL 100 - 129 mg/dl NEAR OR ABOVE OPTIMAL 130 - 159 mg/dl BORDERLINE HIGH 160 - 189 mg/dl HIGH >190 mg/dl VERY HIGH Performed By: #### U RTPCR #### [facility] [address] [address] [address] Dwight Waters Triglyceride [Mass/Vol] 50 mg/dL Normal <=150 [facility] Comment on above: Performed By: #### U RTPCR #### [facility] [address] [place] [address] Dr. Dwight Waters VLDL CALC 10.0 mg/dL Normal [facility] Comment on above: Performed By: #### U RTPCR #### [facility] [address] [place] [address] Dr. Dwight Waters MAGNESIUMon 12-29-2022 Magnesium [Mass/Vol] 1.6 mg/dL Critically low 1.8-2.4 [facility] Comment on above: Performed By: #### C BC #### [facility] [address] [place] [address] Dr. Dwight Waters RENAL FUNCTION PANELon 12-29 Albumin [Mass/Vol] 3.9 g/dL Normal 3.4-5.0 [facility] Comment on above: Performed By: #### C BC #### [facility] [address] [place] [address] Dr. Dwight Waters Calcium [Mass/Vol] 9.2 mg/dL Normal 8.5-10.1 [facility] Comment on above: Performed By: #### C BC #### [facility] [address] [place] [address] Dr. Dwight Waters Chloride [Moles/Vol] 109 mmol/L Critically high 98-107 [facility] Comment on above: Performed By: #### C BC #### [facility] [address] [address] [address] Dwight Waters CO2 [Moles/Vol] 27.0 mmol/L Normal 21.0-32.0 [facility] Comment on above: Performed By: #### C BC #### [facility] [address] [place] [address] Dr. Dwight Waters Creatinine [Mass/Vol] 1.02 mg/dL Normal 0.70-1.30 [facility] Comment on above: Performed By: #### C BC #### [facility] [address] [place] [address] Dr. Dwight Waters EGFR-AF GRENADIAN >60 Normal >=60 [facility] Comment on above: Performed By: #### C BC #### [facility] [address] [place] [address] Dr. Dwight Waters EGFR-NON AF GRENADIAN >60 Normal >=60 [facility] Comment on above: Performed By: #### C BC #### [facility] [address] [place] [address] Dr. Dwight Waters Glucose [Mass/Vol] 117 mg/dL Critically high 74-106 [facility] Comment on above: Performed By: #### C BC #### [facility] [address] [place] [address] Dr. Dwight Waters Phosphate [Mass/Vol] 3.2 mg/dL Normal 2.6-4.7 [facility] Comment on above: Performed By: #### C BC #### [facility] [address] [place] [address] Dr. Dwight Waters Potassium [Moles/Vol] 4.1 mmol/L Normal 3.5-5.1 [facility] Comment on above: Performed By: #### C BC #### [facility] [address] [place] [address] Dr. Dwight Waters Sodium [Moles/Vol] 144 mmol/L Normal 136-145 [facility] Comment on above: Performed By: #### C BC #### [facility] [address] [place] [address] Dr. Dwight Waters Urea nitrogen [Mass/Vol] 13.0 mg/dL Normal 7.0-18.0 [facility] Comment on above: Performed By: #### C BC #### [facility] [address] [place] [address] Dr. Dwight Waters SGOTon 12-29-2022 AST [Catalytic activity/Vol] 21 U/L Normal 15-37 [facility] Comment on above: Performed By: #### C BC #### [facility] [address] [place] [address] Dr. Dwight Waters SGPTon 12-29-2022 ALT [Catalytic activity/Vol] 32 U/L Normal 16-63 [facility] Comment on above: Performed By: #### C BC #### [facility] [address] [place] [address] Dr. Dwight Waters URINE T PROTEIN CREAT RATIOo n 12-29-2022 Protein (U) [Mass/Vol] 14.3 mg/dL Critically high <=12.0 [facility] Comment on above: Performed By: #### U RTPCR #### [facility] [address] [place] [address] Dr. Dwight Waters UR PROT CREAT RAT 0.17 Normal [facility] Comment on above: Performed By: #### U RTPCR #### [facility] [address] [place] [address] Dr. Dwight Waters URINE CREAT 86.58 mg/dL Normal 20.00-300.00 [facility] Comment on above: Performed By: #### U RTPCR #### [facility] [address] [place] [address] Dr. Dwight Waters FK506 (TACROLIMUS) WHOLE BLO ODon 11-06-2022 Tacrolimus (FK506), Blood 4.9 ng/mL Normal 2.0-20.0 [facility] Comment on above: Result Comment: Trou gh (immediately following transplant) 15.0 . Trough (steady state, 2 weeks or more after transplant): 3.0 - 8.0 . Performed by LC-MS/MS technology. Performed By: #### U RTPCR #### [facility] [address] [place] [address] Dr. Dwight Waters ALKALINE PHOSPHAon ALP [Catalytic activity/Vol] 86 U/L Normal 46-116 [facility] Comment on above: Performed By: #### U RTPCR #### [facility] [address] [place] [address] Dr. Dwight Waters BILIRUBIN CONJUGATED (DIRECT )on 11-04-2022 BILI, CONJUGATED 0.2 mg/dL Normal 0.0-0.2 [facility] Comment on above: Performed By: #### U RTPCR #### [facility] [address] [place] [address] Dr. Dwight Waters BILIRUBIN TOTALon 11-04-2022 Bilirubin [Mass/Vol] 0.8 mg/dL Normal 0.2-1.0 [facility] Comment on above: Performed By: #### U RTPCR #### [facility] [address] [place] [address] Dr. Dwight Waters CBC AUTO DIFFon 11-04-2022 BASO # 0.1 103/ul Normal 0.0-0.1 [facility] Comment on above: Performed By: #### U RTPCR #### [facility] [address] [place] [address] Dr. Dwight Waters Basophils/100 WBC (Bld) 0.9 % Normal 0.2-2.0 [facility] Comment on above: Performed By: #### U RTPCR #### [facility] [address] [place] [address] Dr. Dwight Waters EO # 0.2 103/ul Normal 0.0-0.7 [facility] Comment on above: Performed By: #### U RTPCR #### [facility] [address] [place] [address] Dr. Dwight Waters Eosinophils/100 WBC (Bld) 3.7 % Normal 0.9-7.0 [facility] Comment on above: Performed By: #### U RTPCR #### [facility] [address] [place] [address] Dr. Dwight Waters Erythrocyte distribution width (RBC) [Ratio] 12.9 % Normal 11.0-15.0 [facility] Comment on above: Performed By: #### U RTPCR #### [facility] [address] [place] [address] Dr. Dwight Waters Hematocrit (Bld) [Volume fraction] 48.3 % Normal 42.0-54.0 [facility] Comment on above: Performed By: #### U RTPCR #### [facility] [address] [place] [address] Dr. Dwight Waters Hemoglobin (Bld) [Mass/Vol] 15.6 g/dL Normal 14.0-18.0 [facility] Comment on above: Performed By: #### U RTPCR #### [facility] [address] [place] [address] Dr. Dwight Waters IG # 0.01 10e3/ul Normal 0.00-0.03 [facility] Comment on above: Performed By: #### U RTPCR #### [facility] [address] [place] [address] Dr. Dwight Waters IG % 0.2 % Normal 0.0-0.5 [facility] Comment on above: Performed By: #### U RTPCR #### [facility] [address] [place] [address] Dr. Dwight Waters LYMPH # 1.9 103/ul Normal 1.2-3.8 [facility] Comment on above: Performed By: #### U RTPCR #### [facility] [address] [place] [address] Dr. Dwight Waters Lymphocytes/100 WBC (Bld) 33.0 % Normal 20.5-60.0 [facility] Comment on above: Performed By: #### U RTPCR #### [facility] [address] [place] [address] Dr. Dwight Waters MANUAL DIFF REQ NO Normal [facility] Comment on above: Performed By: #### U RTPCR #### [facility] [address] [place] [address] Dr. Dwight Waters MCH (RBC) [Entitic mass] 27.6 pg Normal 25.9-34.0 [facility] Comment on above: Performed By: #### U RTPCR #### [facility] [address] [place] [address] Dr. Dwight Waters MCHC (RBC) [Mass/Vol] 32.3 g/dL Normal 29.9-35.2 [facility] Comment on above: Performed By: #### U RTPCR #### [facility] [address] [place] [address] Dr. Dwight Waters MCV (RBC) [Entitic vol] 85.5 fL Normal 80.0-94.0 [facility] Comment on above: Performed By: #### U RTPCR #### [facility] [address] [place] [address] Dr. Dwight Waters MONO # 0.5 103/ul Normal 0.3-0.8 [facility] Comment on above: Performed By: #### U RTPCR #### [facility] [address] [place] [address] Dr. Dwight Waters Monocytes/100 WBC (Bld) 8.8 % Normal 1.7-12.0 [facility] Comment on above: Performed By: #### U RTPCR #### [facility] [address] [place] [address] Dr. Dwight Waetrs NEUT # 3.1 103/ul Normal 1.4-6.5 [facility] Comment on above: Performed By: #### U RTPCR #### [facility] [address] [place] [address] Dr. Dwight Waters Neutrophils/100 WBC (Bld) 53.4 % Normal 43.0-75.0 [facility] Comment on above: Performed By: #### U RTPCR #### [facility] [address] [place] [address] Dr. Dwight Waters Platelet mean volume (Bld) [Entitic vol] 9.2 fL Critically low 9.5-13.5 [facility] Comment on above: Performed By: #### U RTPCR #### [facility] [address] [place] [address] Dr. Dwight Waters PLT 255 103/ul Normal 150-450 [facility] Comment on above: Performed By: #### U RTPCR #### [facility] [address] [place] [address] Dr. Dwight Waters RBC 5.65 106/ul Normal 4.70-6.10 [facility] Comment on above: Performed By: #### U RTPCR #### [facility] [address] [place] [address] Dr. Dwight Waters WBC 5.7 103/ul Normal 4.0-11.0 [facility] Comment on above: Performed By: #### U RTPCR #### [facility] [address] [place] [address] Dr. Dwight Waters GGTon 11-04-2022 Gamma glutamyl transferase [Catalytic activity/Vol] 22 U/L Normal 15-85 [facility] Comment on above: Performed By: #### U RTPCR #### [facility] [address] [place] [address] Dr. Dwight Waters MAGNESIUMon 11-04-2022 Magnesium [Mass/Vol] 1.8 mg/dL Normal 1.8-2.4 [facility] Comment on above: Performed By: #### U RTPCR #### [facility] [address] [place] [address] Dr. Dwight Waters RENAL FUNCTION PANELon 11-04 Albumin [Mass/Vol] 3.8 g/dL Normal 3.4-5.0 [facility] Comment on above: Performed By: #### U RTPCR #### [facility] [address] [place] [address] Dr. Dwight Waters Calcium [Mass/Vol] 9.3 mg/dL Normal 8.5-10.1 [facility] Comment on above: Performed By: #### U RTPCR #### [facility] [address] [place] [address] Dr. Dwight Waters Chloride [Moles/Vol] 107 mmol/L Normal 98-107 [facility] Comment on above: Performed By: #### U RTPCR #### [facility] [address] [address] [address] Dwight Waters CO2 [Moles/Vol] 29.2 mmol/L Normal 21.0-32.0 [facility] Comment on above: Performed By: #### U RTPCR #### [facility] [address] [place] [address] Dr. Dwight Waters Creatinine [Mass/Vol] 1.07 mg/dL Normal 0.70-1.30 [facility] Comment on above: Performed By: #### U RTPCR #### [facility] [address] [place] [address] Dr. Dwight Waters EGFR-AF GRENADIAN >60 Normal >=60 [facility] Comment on above: Performed By: #### U RTPCR #### [facility] [address] [place] [address] Dr. Dwight Waters EGFR-NON AF GRENADIAN >60 Normal >=60 [facility] Comment on above: Performed By: #### U RTPCR #### [facility] [address] [place] [address] Dr. Dwight Waters Glucose [Mass/Vol] 106 mg/dL Normal 74-106 [facility] Comment on above: Performed By: #### U RTPCR #### [facility] [address] [place] [address] Dr. Dwight Waters Phosphate [Mass/Vol] 2.8 mg/dL Normal 2.6-4.7 [facility] Comment on above: Performed By: #### U RTPCR #### [facility] [address] [place] [address] Dr. Dwight Waters Potassium [Moles/Vol] 4.1 mmol/L Normal 3.5-5.1 [facility] Comment on above: Performed By: #### U RTPCR #### [facility] [address] [place] [address] Dr. Dwight Waters Sodium [Moles/Vol] 143 mmol/L Normal 136-145 [facility] Comment on above: Performed By: #### U RTPCR #### [facility] [address] [place] [address] Dr. Dwight Waters Urea nitrogen [Mass/Vol] 12.0 mg/dL Normal 7.0-18.0 [facility] Comment on above: Performed By: #### U RTPCR #### [facility] [address] [place] [address] Dr. Dwight Waters SGOTon 11-04-2022 AST [Catalytic activity/Vol] 19 U/L Normal 15-37 [facility] Comment on above: Performed By: #### U RTPCR #### [facility] [address] [place] [address] Dr. Dwight Waters SGPTon 11-04-2022 ALT [Catalytic activity/Vol] 28 U/L Normal 16-63 [facility] Comment on above: Performed By: #### U RTPCR #### [facility] [address] [place] [address] Dr. Dwight Waters URINE T PROTEIN CREAT RATIOo n 11-04-2022 Protein (U) [Mass/Vol] 10.7 mg/dL Normal <=12.0 [facility] Comment on above: Performed By: #### U RTPCR #### [facility] [address] [place] [address] Dr. Dwight Waters UR PROT CREAT RAT 0.13 Normal [facility] Comment on above: Performed By: #### U RTPCR #### [facility] [address] [place] [address] Dr. Dwight Waters URINE CREAT 84.50 mg/dL Normal 20.00-300.00 [facility] Comment on above: Performed By: #### U RTPCR #### [facility] [address] [place] [address] Dr. Dwight Waters FK506 (TACROLIMUS) WHOLE BLO ODon 09-18-2022 Tacrolimus (FK506), Blood 4.6 ng/mL Normal 2.0-20.0 [facility] Comment on above: Result Comment: Trou gh (immediately following transplant) 15.0 . Trough (steady state, 2 weeks or more after transplant): 3.0 - 8.0 . Performed by LC-MS/MS technology. Performed By: #### U RTPCR #### [facility] [address] [place] [address] Dr. Dwight Waters BK VIRUS PCR QUANTon 022 BKV DNA QUANT PCR PLASMA Negative Normal Negative [facility] Comment on above: Result Comment: No B K DNA detected. . The linear range of the assay is 22 - 100,000,000 IU/mL. Performed By: #### U RTPCR #### [facility] [address] [place] [address] Dr. Dwight Waters Log10 BKV DNA Plasma Normal [facility] Comment on above: Performed By: #### U RTPCR #### [facility] [address] [place] [address] Dr. Dwight Waters ALKALINE PHOSPHAon ALP [Catalytic activity/Vol] 92 U/L Normal 46-116 [facility] Comment on above: Performed By: #### U RTPCR #### [facility] [address] [place] [address] Dr. Dwight Waters BILIRUBIN CONJUGATED (DIRECT )on 09-15-2022 BILI, CONJUGATED 0.3 mg/dL Critically high 0.0-0.2 [facility] Comment on above: Performed By: #### U RTPCR #### [facility] [address] [place] [address] Dr. Dwight Waters BILIRUBIN TOTALon 09-15-2022 Bilirubin [Mass/Vol] 1.1 mg/dL Critically high 0.2-1.0 [facility] Comment on above: Performed By: #### U RTPCR #### [facility] [address] [place] [address] Dr. Dwight Waters CBC AUTO DIFFon 09-15-2022 BASO # 0.1 103/ul Normal 0.0-0.1 [facility] Comment on above: Performed By: #### C BC #### [facility] [address] [place] [address] Dr. Dwight Waters Basophils/100 WBC (Bld) 0.8 % Normal 0.2-2.0 [facility] Comment on above: Performed By: #### C BC #### [facility] [address] [place] [address] Dr. Dwight Waters EO # 0.2 103/ul Normal 0.0-0.7 [facility] Comment on above: Performed By: #### C BC #### [facility] [address] [place] [address] Dr. Dwight Waters Eosinophils/100 WBC (Bld) 3.5 % Normal 0.9-7.0 [facility] Comment on above: Performed By: #### C BC #### [facility] [address] [place] [address] Dr. Dwight Waters Erythrocyte distribution width (RBC) [Ratio] 13.0 % Normal 11.0-15.0 [facility] Comment on above: Performed By: #### C BC #### [facility] [address] [place] [address] Dr. Dwight Waters Hematocrit (Bld) [Volume fraction] 50.0 % Normal 42.0-54.0 [facility] Comment on above: Performed By: #### C BC #### [facility] [address] [place] [address] Dr. Dwight Waters Hemoglobin (Bld) [Mass/Vol] 16.0 g/dL Normal 14.0-18.0 [facility] Comment on above: Performed By: #### C BC #### [facility] [address] [place] [address] Dr. Dwight Waters IG # 0.02 10e3/ul Normal 0.00-0.03 [facility] Comment on above: Performed By: #### C BC #### [facility] [address] [place] [address] Dr. Dwight Waters IG % 0.3 % Normal 0.0-0.5 [facility] Comment on above: Performed By: #### C BC #### [facility] [address] [place] [address] Dr. Dwight Waters LYMPH # 1.8 103/ul Normal 1.2-3.8 [facility] Comment on above: Performed By: #### C BC #### [facility] [address] [place] [address] Dr. Dwight Waters Lymphocytes/100 WBC (Bld) 26.5 % Normal 20.5-60.0 [facility] Comment on above: Performed By: #### C BC #### [facility] [address] [place] [address] Dr. Dwight Waters MANUAL DIFF REQ NO Normal [facility] Comment on above: Performed By: #### C BC #### [facility] [address] [place] [address] Dr. Dwight Waters MCH (RBC) [Entitic mass] 28.1 pg Normal 25.9-34.0 [facility] Comment on above: Performed By: #### C BC #### [facility] [address] [place] [address] Dr. Dwight Waters MCHC (RBC) [Mass/Vol] 32.0 g/dL Normal 29.9-35.2 [facility] Comment on above: Performed By: #### C BC #### [facility] [address] [place] [address] Dr. Dwight Waters MCV (RBC) [Entitic vol] 87.9 fL Normal 80.0-94.0 [facility] Comment on above: Performed By: #### C BC #### [facility] [address] [place] [address] Dr. Dwight Waters MONO # 0.5 103/ul Normal 0.3-0.8 [facility] Comment on above: Performed By: #### C BC #### [facility] [address] [place] [address] Dr. Dwight Waters Monocytes/100 WBC (Bld) 8.1 % Normal 1.7-12.0 [facility] Comment on above: Performed By: #### C BC #### [facility] [address] [place] [address] Dr. Dwight Waters NEUT # 4.0 103/ul Normal 1.4-6.5 [facility] Comment on above: Performed By: #### C BC #### [facility] [address] [place] [address] Dr. Dwight Waters Neutrophils/100 WBC (Bld) 60.8 % Normal 43.0-75.0 [facility] Comment on above: Performed By: #### C BC #### [facility] [address] [address] [address] Dwight Waters Platelet mean volume (Bld) [Entitic vol] 9.4 fL Critically low 9.5-13.5 [facility] Comment on above: Performed By: #### C BC #### [facility] [address] [place] [address] Dr. Dwight Waters PLT 265 103/ul Normal 150-450 [facility] Comment on above: Performed By: #### C BC #### [facility] [address] [place] [address] Dr. Dwight Waters RBC 5.69 106/ul Normal 4.70-6.10 [facility] Comment on above: Performed By: #### C BC #### [facility] [address] [place] [address] Dr. Dwight Waters WBC 6.6 103/ul Normal 4.0-11.0 [facility] Comment on above: Performed By: #### C BC #### [facility] [address] [place] [address] Dr. Dwight Waters GGTon 09-15-2022 Gamma glutamyl transferase [Catalytic activity/Vol] 23 U/L Normal 15-85 [facility] Comment on above: Performed By: #### U RTPCR #### [facility] [address] [place] [address] Dr. Dwight Waters MAGNESIUMon 09-15-2022 Magnesium [Mass/Vol] 1.8 mg/dL Normal 1.8-2.4 [facility] Comment on above: Performed By: #### U RTPCR #### [facility] [address] [place] [address] Dr. Dwight Waters RENAL FUNCTION PANELon 09-15 Albumin [Mass/Vol] 4.1 g/dL Normal 3.4-5.0 [facility] Comment on above: Performed By: #### C BC #### [facility] [address] [place] [address] Dr. Dwight Waters Calcium [Mass/Vol] 9.3 mg/dL Normal 8.5-10.1 [facility] Comment on above: Performed By: #### C BC #### [facility] [address] [place] [address] Dr. Dwight Waters Chloride [Moles/Vol] 107 mmol/L Normal 98-107 [facility] Comment on above: Performed By: #### C BC #### [facility] [address] [place] [address] Dr. Dwight Waters CO2 [Moles/Vol] 25.6 mmol/L Normal 21.0-32.0 [facility] Comment on above: Performed By: #### C BC #### [facility] [address] [place] [address] Dr. Dwight Waters Creatinine [Mass/Vol] 1.01 mg/dL Normal 0.70-1.30 [facility] Comment on above: Performed By: #### C BC #### [facility] [address] [place] [address] Dr. Dwight Waters EGFR-AF GRENADIAN >60 Normal >=60 [facility] Comment on above: Performed By: #### C BC #### [facility] [address] [place] [address] Dr. Dwight Waters EGFR-NON AF GRENADIAN >60 Normal >=60 [facility] Comment on above: Performed By: #### C BC #### [facility] [address] [place] [address] Dr. Dwight Waters Glucose [Mass/Vol] 119 mg/dL Critically high 74-106 [facility] Comment on above: Performed By: #### C BC #### [facility] [address] [place] [address] Dr. Dwight Waters Phosphate [Mass/Vol] 2.8 mg/dL Normal 2.6-4.7 [facility] Comment on above: Performed By: #### C BC #### [facility] [address] [place] [address] Dr. Dwight Waters Potassium [Moles/Vol] 4.0 mmol/L Normal 3.5-5.1 [facility] Comment on above: Performed By: #### C BC #### [facility] [address] [place] [address] Dr. Dwight Waters Sodium [Moles/Vol] 141 mmol/L Normal 136-145 [facility] Comment on above: Performed By: #### C BC #### [facility] [address] [place] [address] Dr. Dwight Waters Urea nitrogen [Mass/Vol] 15.0 mg/dL Normal 7.0-18.0 [facility] Comment on above: Performed By: #### C BC #### [facility] [address] [place] [address] Dr. Dwight OLVERAOTon 09-15-2022 AST [Catalytic activity/Vol] 18 U/L Normal 15-37 [facility] Comment on above: Performed By: #### U RTPCR #### [facility] [address] [place] [address] Dr. Dwight Osei 09-15-2022 ALT [Catalytic activity/Vol] 32 U/L Normal 16-63 [facility] Comment on above: Performed By: #### C BC #### [facility] [address] [place] [address] Dr. Dwight Waters URINE T PROTEIN CREAT RATIOo n 09-15-2022 Protein (U) [Mass/Vol] 14.1 mg/dL Critically high <=12.0 [facility] Comment on above: Performed By: #### U RTPCR #### [facility] [address] [place] [address] Dr. Dwight Waters UR PROT CREAT RAT 0.14 Normal [facility] Comment on above: Performed By: #### U RTPCR #### [facility] [address] [place] [address] Dr. Dwight Waters URINE CREAT 98.89 mg/dL Normal 20.00-300.00 [facility] Comment on above: Performed By: #### U RTPCR #### [facility] [address] [place] [address] Dr. Dwight Waters US CAROTID ART BILon [...] MÓNICA JIMENEZ Date: 2022-08-28 13:20 Normal [facility] FK506 (TACROLIMUS) WHOLE BLO ODon 08-17-2022 Tacrolimus (FK506), Blood 9.9 ng/mL Normal 2.0-20.0 [facility] Comment on above: Result Comment: Trou gh (immediately following transplant) 15.0 . Trough (steady state, 2 weeks or more after transplant): 3.0 - 8.0 . Performed by LC-MS/MS technology. Performed By: #### F [id number] #### [facility] [address] [place] [address] Dr. Dwight Waters BK VIRUS PCR QUANTon 022 BKV DNA QUANT PCR PLASMA Negative Normal Negative [facility] Comment on above: Result Comment: No B K DNA detected. . The linear range of the assay is 22 - 100,000,000 IU/mL. Performed By: #### U RTPCR #### [facility] [address] [place] [address] Dr. Dwight Waters Log10 BKV DNA Plasma Normal [facility] Comment on above: Performed By: #### U RTPCR #### [facility] [address] [place] [address] Dr. Dwight Waters ALBUMINon 08-14-2022 Albumin [Mass/Vol] 4.2 g/dL Normal 3.4-5.0 [facility] Comment on above: Performed By: #### F [id number] #### [facility] [address] [place] [address] Dr. Dwight Waters ALKALINE PHOSPHAon ALP [Catalytic activity/Vol] 92 U/L Normal 46-116 [facility] Comment on above: Performed By: #### C BC #### [facility] [address] [place] [address] Dr. Dwight Waters BILIRUBIN CONJUGATED (DIRECT )on 08-14-2022 BILI, CONJUGATED 0.3 mg/dL Critically high 0.0-0.2 [facility] Comment on above: Performed By: #### F [id number] #### [facility] [address] [place] [address] Dr. Dwight Waters BILIRUBIN TOTALon 08-14-2022 Bilirubin [Mass/Vol] 1.5 mg/dL Critically high 0.2-1.0 [facility] Comment on above: Performed By: #### F [id number] #### [facility] [address] [place] [address] Dr. Dwight Waters BUNon 08-14-2022 Urea nitrogen [Mass/Vol] 11.0 mg/dL Normal 7.0-18.0 [facility] Comment on above: Performed By: #### C BC #### [facility] [address] [place] [address] Dr. Dwight Waters CALCIUMon 08-14-2022 Calcium [Mass/Vol] 9.4 mg/dL Normal 8.5-10.1 [facility] Comment on above: Performed By: #### F [id number] #### [facility] [address] [place] [address] Dr. Dwight Waters CBC AUTO DIFFon 08-14-2022 BASO # 0.0 103/ul Normal 0.0-0.1 [facility] Comment on above: Performed By: #### C MP #### [facility] [address] [place] [address] Dr. Dwight Waters Basophils/100 WBC (Bld) 0.5 % Normal 0.2-2.0 [facility] Comment on above: Performed By: #### C MP #### [facility] [address] [place] [address] Dr. Dwight Waters EO # 0.2 103/ul Normal 0.0-0.7 [facility] Comment on above: Performed By: #### C MP #### [facility] [address] [place] [address] Dr. Dwight Waters Eosinophils/100 WBC (Bld) 2.6 % Normal 0.9-7.0 [facility] Comment on above: Performed By: #### C MP #### [facility] [address] [place] [address] Dr. Dwight Waters Erythrocyte distribution width (RBC) [Ratio] 13.1 % Normal 11.0-15.0 [facility] Comment on above: Performed By: #### C MP #### [facility] [address] [place] [address] Dr. Dwight Waters Hematocrit (Bld) [Volume fraction] 47.0 % Normal 42.0-54.0 [facility] Comment on above: Performed By: #### C MP #### [facility] [address] [place] [address] Dr. Dwight Waters Hemoglobin (Bld) [Mass/Vol] 15.3 g/dL Normal 14.0-18.0 [facility] Comment on above: Performed By: #### C MP #### [facility] [address] [place] [address] Dr. Dwight Waters IG # 0.01 10e3/ul Normal 0.00-0.03 [facility] Comment on above: Performed By: #### C MP #### [facility] [address] [place] [address] Dr. Dwight Waters IG % 0.1 % Normal 0.0-0.5 [facility] Comment on above: Performed By: #### C MP #### [facility] [address] [place] [address] Dr. Dwight Waters LYMPH # 2.3 103/ul Normal 1.2-3.8 [facility] Comment on above: Performed By: #### C MP #### [facility] [address] [place] [address] Dr. Dwight Waters Lymphocytes/100 WBC (Bld) 29.8 % Normal 20.5-60.0 [facility] Comment on above: Performed By: #### C MP #### [facility] [address] [place] [address] Dr. Dwight Waters MANUAL DIFF REQ NO Normal [facility] Comment on above: Performed By: #### C MP #### [facility] [address] [place] [address] Dr. Dwight Waters MCH (RBC) [Entitic mass] 28.2 pg Normal 25.9-34.0 [facility] Comment on above: Performed By: #### C MP #### [facility] [address] [place] [address] Dr. Dwight Waters MCHC (RBC) [Mass/Vol] 32.6 g/dL Normal 29.9-35.2 [facility] Comment on above: Performed By: #### C MP #### [facility] [address] [place] [address] Dr. Dwight Waters MCV (RBC) [Entitic vol] 86.7 fL Normal 80.0-94.0 [facility] Comment on above: Performed By: #### C MP #### [facility] [address] [place] [address] Dr. Dwight Waters MONO # 0.7 103/ul Normal 0.3-0.8 [facility] Comment on above: Performed By: #### C MP #### [facility] [address] [place] [address] Dr. Dwight Waters Monocytes/100 WBC (Bld) 8.5 % Normal 1.7-12.0 [facility] Comment on above: Performed By: #### C MP #### [facility] [address] [place] [address] Dr. Dwight Waters NEUT # 4.5 103/ul Normal 1.4-6.5 [facility] Comment on above: Performed By: #### C MP #### [facility] [address] [place] [address] Dr. Dwight Waters Neutrophils/100 WBC (Bld) 58.5 % Normal 43.0-75.0 [facility] Comment on above: Performed By: #### C MP #### [facility] [address] [place] [address] Dr. Dwight Waters Platelet mean volume (Bld) [Entitic vol] 9.7 fL Normal 9.5-13.5 [facility] Comment on above: Performed By: #### C MP #### [facility] [address] [place] [address] Dr. Dwight Waters PLT 266 103/ul Normal 150-450 [facility] Comment on above: Performed By: #### C MP #### [facility] [address] [place] [address] Dr. Dwight Waters RBC 5.42 106/ul Normal 4.70-6.10 [facility] Comment on above: Performed By: #### C MP #### [facility] [address] [place] [address] Dr. Dwight Waters WBC 7.6 103/ul Normal 4.0-11.0 [facility] Comment on above: Performed By: #### C MP #### [facility] [address] [place] [address] Dr. Dwigth Watres CHLORIDEon 08-14-2022 Chloride [Moles/Vol] 104 mmol/L Normal 98-107 [facility] Comment on above: Performed By: #### C BC #### [facility] [address] [place] [address] Dr. Dwight Waters CO2on 08-14-2022 CO2 [Moles/Vol] 27.9 mmol/L Normal 21.0-32.0 [facility] Comment on above: Performed By: #### C BC #### [facility] [address] [place] [address] Dr. Dwight Waters CREATININEon 08-14-2022 Creatinine [Mass/Vol] 1.08 mg/dL Normal 0.70-1.30 [facility] Comment on above: Performed By: #### C BC #### [facility] [address] [place] [address] Dr. Dwight Waters EGFR-AF GRENADIAN >60 Normal >=60 [facility] Comment on above: Performed By: #### C BC #### [facility] [address] [place] [address] Dr. Dwight Waters EGFR-NON AF GRENADIAN >60 Normal >=60 [facility] Comment on above: Performed By: #### C BC #### [facility] [address] [place] [address] Dr. Dwight Waters GGTon 08-14-2022 Gamma glutamyl transferase [Catalytic activity/Vol] 24 U/L Normal 15-85 [facility] Comment on above: Performed By: #### F [id number] #### [facility] [address] [place] [address] Dr. Dwight Waters GLUCOSE BLOODon 08-14-2022 Glucose [Mass/Vol] 111 mg/dL Critically high 74-106 [facility] Comment on above: Performed By: #### C BC #### [facility] [address] [place] [address] Dr. Dwight Waters MAGNESIUMon 08-14-2022 Magnesium [Mass/Vol] 1.4 mg/dL Critically low 1.8-2.4 [facility] Comment on above: Performed By: #### C BC #### [facility] [address] [place] [address] Dr. Dwight Waters NAon 08-14-2022 Sodium [Moles/Vol] 140 mmol/L Normal 136-145 [facility] Comment on above: Performed By: #### F [id number] #### [facility] [address] [place] [address] Dr. Dwight Waters PHOSPHORUSon 08-14-2022 Phosphate [Mass/Vol] 3.1 mg/dL Normal 2.6-4.7 [facility] Comment on above: Performed By: #### C BC #### [facility] [address] [place] [address] Dr. Dwight Waters POTASSIUMon 08-14-2022 Potassium [Moles/Vol] 3.5 mmol/L Normal 3.5-5.1 [facility] Comment on above: Performed By: #### C BC #### [facility] [address] [place] [address] Dr. Dwight Waters SGOTon 08-14-2022 AST [Catalytic activity/Vol] 17 U/L Normal 15-37 [facility] Comment on above: Performed By: #### F [id number] #### [facility] [address] [place] [address] Dr. Dwight Waters SGPTon 08-14-2022 ALT [Catalytic activity/Vol] 22 U/L Normal 16-63 [facility] Comment on above: Performed By: #### F [id number] #### [facility] [address] [place] [address] Dr. Dwight Waters URINE T PROTEIN CREAT RATIOo n 08-14-2022 Protein (U) [Mass/Vol] 10.7 mg/dL Normal <=12.0 [facility] Comment on above: Performed By: #### F [id number] #### [facility] [address] [place] [address] Dr. Dwight Waters UR PROT CREAT RAT 0.10 Normal [facility] Comment on above: Performed By: #### F [id number] #### [facility] [address] [place] [address] Dr. Dwight Waters URINE CREAT 104.28 mg/dL Normal 20.00-300.00 [facility] Comment on above: Performed By: #### F [id number] #### [facility] [address] [place] [address] Dr. Dwight Waters NEPHROSTOMY TUBE REMOVALon 0 [...] Assisting physician present for entire procedure: yes [facility] Radiology Study observation (narrative) [facility] FK506 (TACROLIMUS) WHOLE BLO ODon 07-06-2022 Tacrolimus (FK506), Blood 9.5 ng/mL Normal 2.0-20.0 [facility] Comment on above: Result Comment: Trou gh (immediately following transplant) 15.0 . Trough (steady state, 2 weeks or more after transplant): 3.0 - 8.0 . Performed by LC-MS/MS technology. Performed By: #### C MP #### [facility] [address] [place] [address] Dr. Dwight Waters ALBUMINon 07-03-2022 Albumin [Mass/Vol] 3.7 g/dL Normal 3.4-5.0 [facility] Comment on above: Performed By: #### U RTPCR #### [facility] [address] [place] [address] Dr. Dwight Waters ALKALINE PHOSPHAon ALP [Catalytic activity/Vol] 76 U/L Normal 46-116 [facility] Comment on above: Performed By: #### U RTPCR #### [facility] [address] [place] [address] Dr. Dwight Waters BILIRUBIN CONJUGATED (DIRECT )on 07-03-2022 BILI, CONJUGATED 0.3 mg/dL Critically high 0.0-0.2 [facility] Comment on above: Performed By: #### C BC #### [facility] [address] [place] [address] Dr. Dwight Waters BILIRUBIN TOTALon 07-03-2022 Bilirubin [Mass/Vol] 1.4 mg/dL Critically high 0.2-1.0 [facility] Comment on above: Performed By: #### C BC #### [facility] [address] [place] [address] Dr. Dwight Waters BUNon 07-03-2022 Urea nitrogen [Mass/Vol] 15.0 mg/dL Normal 7.0-18.0 [facility] Comment on above: Performed By: #### C BC #### [facility] [address] [place] [address] Dr. Dwight Waters CALCIUMon 07-03-2022 Calcium [Mass/Vol] 9.4 mg/dL Normal 8.5-10.1 [facility] Comment on above: Performed By: #### U RTPCR #### [facility] [address] [place] [address] Dr. Dwight Waters CBC AUTO DIFFon 07-03-2022 BASO # 0.0 103/ul Normal 0.0-0.1 [facility] Comment on above: Performed By: #### U RTPCR #### [facility] [address] [place] [address] Dr. Dwight Waters Basophils/100 WBC (Bld) 0.6 % Normal 0.2-2.0 [facility] Comment on above: Performed By: #### U RTPCR #### [facility] [address] [place] [address] Dr. Dwight Waters EO # 0.2 103/ul Normal 0.0-0.7 [facility] Comment on above: Performed By: #### U RTPCR #### [facility] [address] [place] [address] Dr. Dwight Waters Eosinophils/100 WBC (Bld) 3.5 % Normal 0.9-7.0 [facility] Comment on above: Performed By: #### U RTPCR #### [facility] [address] [place] [address] Dr. Dwight Waters Erythrocyte distribution width (RBC) [Ratio] 12.9 % Normal 11.0-15.0 [facility] Comment on above: Performed By: #### U RTPCR #### [facility] [address] [place] [address] Dr. Dwight Waters Hematocrit (Bld) [Volume fraction] 44.2 % Normal 42.0-54.0 [facility] Comment on above: Performed By: #### U RTPCR #### [facility] [address] [place] [address] Dr. Dwight Waters Hemoglobin (Bld) [Mass/Vol] 14.6 g/dL Normal 14.0-18.0 [facility] Comment on above: Performed By: #### U RTPCR #### [facility] [address] [place] [address] Dr. Dwight Waters IG # 0.02 10e3/ul Normal 0.00-0.03 [facility] Comment on above: Performed By: #### U RTPCR #### [facility] [address] [place] [address] Dr. Dwight Waters IG % 0.3 % Normal 0.0-0.5 [facility] Comment on above: Performed By: #### U RTPCR #### [facility] [address] [place] [address] Dr. Dwight Waters LYMPH # 2.0 103/ul Normal 1.2-3.8 [facility] Comment on above: Performed By: #### U RTPCR #### [facility] [address] [place] [address] Dr. Dwight Waters Lymphocytes/100 WBC (Bld) 28.4 % Normal 20.5-60.0 [facility] Comment on above: Performed By: #### U RTPCR #### [facility] [address] [place] [address] Dr. Dwight Waters MANUAL DIFF REQ NO Normal [facility] Comment on above: Performed By: #### U RTPCR #### [facility] [address] [place] [address] Dr. Dwight Waters MCH (RBC) [Entitic mass] 28.6 pg Normal 25.9-34.0 [facility] Comment on above: Performed By: #### U RTPCR #### [facility] [address] [place] [address] Dr. Dwight Waters MCHC (RBC) [Mass/Vol] 33.0 g/dL Normal 29.9-35.2 [facility] Comment on above: Performed By: #### U RTPCR #### [facility] [address] [place] [address] Dr. Dwight Waters MCV (RBC) [Entitic vol] 86.7 fL Normal 80.0-94.0 [facility] Comment on above: Performed By: #### U RTPCR #### [facility] [address] [place] [address] Dr. Dwight Waters MONO # 0.6 103/ul Normal 0.3-0.8 [facility] Comment on above: Performed By: #### U RTPCR #### [facility] [address] [place] [address] Dr. Dwight Waters Monocytes/100 WBC (Bld) 9.1 % Normal 1.7-12.0 [facility] Comment on above: Performed By: #### U RTPCR #### [facility] [address] [place] [address] Dr. Dwight Waters NEUT # 4.0 103/ul Normal 1.4-6.5 [facility] Comment on above: Performed By: #### U RTPCR #### [facility] [address] [place] [address] Dr. Dwight Waters Neutrophils/100 WBC (Bld) 58.1 % Normal 43.0-75.0 [facility] Comment on above: Performed By: #### U RTPCR #### [facility] [address] [place] [address] Dr. Dwight Waters Platelet mean volume (Bld) [Entitic vol] 9.5 fL Normal 9.5-13.5 [facility] Comment on above: Performed By: #### U RTPCR #### [facility] [address] [place] [address] Dr. Dwight Waters PLT 292 103/ul Normal 150-450 [facility] Comment on above: Performed By: #### U RTPCR #### [facility] [address] [place] [address] Dr. Dwight Waters RBC 5.10 106/ul Normal 4.70-6.10 [facility] Comment on above: Performed By: #### U RTPCR #### [facility] [address] [place] [address] Dr. Dwight Waters WBC 6.9 103/ul Normal 4.0-11.0 [facility] Comment on above: Performed By: #### U RTPCR #### [facility] [address] [place] [address] Dr. Dwight Waters CHLORIDEon 07-03-2022 Chloride [Moles/Vol] 108 mmol/L Critically high 98-107 [facility] Comment on above: Performed By: #### C BC #### [facility] [address] [place] [address] Dr. Dwight Wtaers CO2on 07-03-2022 CO2 [Moles/Vol] 25.2 mmol/L Normal 21.0-32.0 [facility] Comment on above: Performed By: #### C BC #### [facility] [address] [place] [address] Dr. Dwight Waters CREATININEon 07-03-2022 Creatinine [Mass/Vol] 1.03 mg/dL Normal 0.70-1.30 [facility] Comment on above: Performed By: #### U RTPCR #### [facility] [address] [place] [address] Dr. Dwight Waters EGFR-AF GRENADIAN >60 Normal >=60 [facility] Comment on above: Performed By: #### U RTPCR #### [facility] [address] [place] [address] Dr. Dwight Waters EGFR-NON AF GRENADIAN >60 Normal >=60 [facility] Comment on above: Performed By: #### U RTPCR #### [facility] [address] [place] [address] Dr. Dwight Waters GGTon 07-03-2022 Gamma glutamyl transferase [Catalytic activity/Vol] 31 U/L Normal 15-85 [facility] Comment on above: Performed By: #### U RTPCR #### [facility] [address] [place] [address] Dr. Dwight Waters GLUCOSE BLOODon 07-03-2022 Glucose [Mass/Vol] 119 mg/dL Critically high 74-106 [facility] Comment on above: Performed By: #### U RTPCR #### [facility] [address] [place] [address] Dr. Dwight Waters MAGNESIUMon 07-03-2022 Magnesium [Mass/Vol] 1.4 mg/dL Critically low 1.8-2.4 [facility] Comment on above: Performed By: #### C BC #### [facility] [address] [place] [address] Dr. Dwight Waters NAon 07-03-2022 Sodium [Moles/Vol] 142 mmol/L Normal 136-145 [facility] Comment on above: Performed By: #### C MP #### [facility] [address] [place] [address] Dr. Dwight Waters PHOSPHORUSon 07-03-2022 Phosphate [Mass/Vol] 3.4 mg/dL Normal 2.6-4.7 [facility] Comment on above: Performed By: #### C BC #### [facility] [address] [place] [address] Dr. Dwight Waters POTASSIUMon 07-03-2022 Potassium [Moles/Vol] 4.1 mmol/L Normal 3.5-5.1 [facility] Comment on above: Performed By: #### C BC #### [facility] [address] [place] [address] Dr. Dwight Waters SGOTon 07-03-2022 AST [Catalytic activity/Vol] 14 U/L Critically low 15-37 [facility] Comment on above: Performed By: #### C BC #### [facility] [address] [place] [address] Dr. Dwight OLVERAPTon 07-03-2022 ALT [Catalytic activity/Vol] 25 U/L Normal 16-63 [facility] Comment on above: Performed By: #### C BC #### [facility] [address] [place] [address] Dr. Dwight Waters US KIDNEYSon 07-03-2022 US KIDNEYS Ultrasound kidneys, bilateral HISTORY: Transplant of kidney , pain in the right lower quadrant COMPARISON: None. TECHNIQUE: Transabdominal ultrasound imaging of both kidneys was performed. FINDINGS: The [place] kidneys are diffusely echogenic and atrophic with cortical thinning. The right kidney measures 8.3 x 3.5 x 4.07 m and the left measures 9.9 x 3.8 x 3.6 cm. No hydronephrosis of the [place] kidneys. There is a renal transplant in [...] stone involving the renal transplant. 2. Atrophic [place] kidneys. 3. Normal bladder. Electronically authenticated by: ARCELIA PIZARRO Date: 2022-07-03 17:22 Normal [facility] CT Abdomen and Pelvis WO con traston 06-27-2022 IMPRESSION: 1. Both [place] kidneys are atrophic with improvement in right-sided [...] Adrenals: Adrenal glands are unremarkable. Kidneys: Both [place] kidneys are atrophic. Interval improvement in right [place] kidney hydronephrosis since May 15, 2022. Status [...] Adrenals: Adrenal glands are unremarkable. Kidneys: Both [place] kidneys are atrophic. Interval improvement in right [place] kidney hydronephrosis since May 15, 2022. Status [...] aggressive osseous lesions. IMPRESSION IMPRESSION: 1. Both [place] kidneys are atrophic with improvement in right-sided hydronephrosis since May 15, 2022. 2. 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 No hydronephrosis. No discrete perinephric collection. 3. Partially imaged postsurgical changes related to prior liver transplant. 4. The bladder is decompressed, limiting evaluation. [facility] Radiology Study observation (narrative) [facility] CT Abdomen and Pelvis WO con trastOrdered By: Gera Lu on 06-27-2022 [facility] Work Phone: CBC AUTO DIFFon 06-18-2022 BASO # 0.0 103/ul Normal 0.0-0.1 [facility] Comment on above: Performed By: #### U RTPCR #### [facility] [address] [place] [address] Dr. Dwight Waters Basophils/100 WBC (Bld) 0.5 % Normal 0.2-2.0 [facility] Comment on above: Performed By: #### U RTPCR #### [facility] [address] [place] [address] Dr. Dwight Waters EO # 0.2 103/ul Normal 0.0-0.7 [facility] Comment on above: Performed By: #### U RTPCR #### [facility] [address] [place] [address] Dr. Dwight Waters Eosinophils/100 WBC (Bld) 2.3 % Normal 0.9-7.0 [facility] Comment on above: Performed By: #### U RTPCR #### [facility] [address] [place] [address] Dr. Dwight Waters Erythrocyte distribution width (RBC) [Ratio] 12.9 % Normal 11.0-15.0 [facility] Comment on above: Performed By: #### U RTPCR #### [facility] [address] [place] [address] Dr. Dwight Waters Hematocrit (Bld) [Volume fraction] 41.2 % Critically low 42.0-54.0 [facility] Comment on above: Performed By: #### U RTPCR #### [facility] [address] [place] [address] Dr. Dwight Waters Hemoglobin (Bld) [Mass/Vol] 13.3 g/dL Critically low 14.0-18.0 [facility] Comment on above: Performed By: #### U RTPCR #### [facility] [address] [place] [address] Dr. Dwight Waters IG # 0.04 10e3/ul Critically high 0.00-0.03 [facility] Comment on above: Performed By: #### U RTPCR #### [facility] [address] [place] [address] Dr. Dwight Waters IG % 0.5 % Normal 0.0-0.5 [facility] Comment on above: Performed By: #### U RTPCR #### [facility] [address] [place] [address] Dr. Dwight Waters LYMPH # 2.0 103/ul Normal 1.2-3.8 [facility] Comment on above: Performed By: #### U RTPCR #### [facility] [address] [place] [address] Dr. Dwight Waters Lymphocytes/100 WBC (Bld) 22.9 % Normal 20.5-60.0 [facility] Comment on above: Performed By: #### U RTPCR #### [facility] [address] [place] [address] Dr. Dwight Waters MANUAL DIFF REQ NO Normal [facility] Comment on above: Performed By: #### U RTPCR #### [facility] [address] [place] [address] Dr. Dwight Waters MCH (RBC) [Entitic mass] 28.7 pg Normal 25.9-34.0 [facility] Comment on above: Performed By: #### U RTPCR #### [facility] [address] [place] [address] Dr. Dwight Waters MCHC (RBC) [Mass/Vol] 32.3 g/dL Normal 29.9-35.2 [facility] Comment on above: Performed By: #### U RTPCR #### [facility] [address] [place] [address] Dr. Dwight Waters MCV (RBC) [Entitic vol] 88.8 fL Normal 80.0-94.0 [facility] Comment on above: Performed By: #### U RTPCR #### [facility] [address] [place] [address] Dr. Dwight Waters MONO # 0.8 103/ul Normal 0.3-0.8 [facility] Comment on above: Performed By: #### U RTPCR #### [facility] [address] [place] [address] Dr. Dwight Waters Monocytes/100 WBC (Bld) 9.7 % Normal 1.7-12.0 [facility] Comment on above: Performed By: #### U RTPCR #### [facility] [address] [place] [address] Dr. Dwight Waters NEUT # 5.6 103/ul Normal 1.4-6.5 [facility] Comment on above: Performed By: #### U RTPCR #### [facility] [address] [place] [address] Dr. Dwight Waters Neutrophils/100 WBC (Bld) 64.1 % Normal 43.0-75.0 [facility] Comment on above: Performed By: #### U RTPCR #### [facility] [address] [place] [address] Dr. Dwight Waters Platelet mean volume (Bld) [Entitic vol] 10.0 fL Normal 9.5-13.5 [facility] Comment on above: Performed By: #### U RTPCR #### [facility] [address] [place] [address] Dr. Dwight Waters PLT 270 103/ul Normal 150-450 [facility] Comment on above: Performed By: #### U RTPCR #### [facility] [address] [place] [address] Dr. Dwight Waters RBC 4.64 106/ul Critically low 4.70-6.10 [facility] Comment on above: Performed By: #### U RTPCR #### [facility] [address] [place] [address] Dr. Dwight Waters WBC 8.7 103/ul Normal 4.0-11.0 [facility] Comment on above: Performed By: #### U RTPCR #### [facility] [address] [place] [address] Dr. Dwight Waters CULTURE URINEon 06-18-2022 CULTURE URINE Culture Observations : NO GROWTH. Normal [facility] Comment on above: Performed By: #### U RTPCR #### [facility] [address] [place] [address] Dr. Dwight Waters [facility] SARS-CoV-2 (COVID-19) RNA ESTELITA+probe Ql (Unsp spec) Not detected Normal NOT DETECTED [facility] Comment on above: Result Comment: When [...] for this test is supported by the [place] [employer] and [employer]'s declaration that [...] used). Performed By: #### C BC #### [facility] [address] [place] [address] Dr. Dwight Waters ER URINE PROFILEon 2 Bilirubin Ql (U) Negative Normal NEGATIVE [facility] Comment on above: Performed By: #### U RTPCR #### [facility] [address] [place] [address] Dr. Dwight Waters Clarity (U) CLEAR Normal CLEAR [facility] Comment on above: Performed By: #### U RTPCR #### [facility] [address] [place] [address] Dr. Dwight Waters Color (U) YELLOW Normal YELLOW [facility] Comment on above: Performed By: #### U RTPCR #### [facility] [address] [place] [address] Dr. Dwight Waters ERUAHD A micrscopic examina tion will be performed if indicated. Normal [facility] Comment on above: Performed By: #### U RTPCR #### [facility] [address] [place] [address] Dr. Dwight Waters Glucose Ql (U) Negative Normal NEGATIVE [facility] Comment on above: Performed By: #### U RTPCR #### [facility] [address] [place] [address] Dr. Dwight Waters Hemoglobin Ql (U) LARGE Abnormal NEGATIVE [facility] Comment on above: Performed By: #### U RTPCR #### [facility] [address] [place] [address] Dr. Dwight Waters Ketones Ql (U) Negative Normal NEGATIVE [facility] Comment on above: Performed By: #### U RTPCR #### [facility] [address] [place] [address] Dr. Dwight Waters LEUKOCYTES TRACE Abnormal NEGATIVE [facility] Comment on above: Performed By: #### U RTPCR #### [facility] [address] [place] [address] Dr. Dwight Waters Nitrite Ql (U) Negative Normal NEGATIVE [facility] Comment on above: Performed By: #### U RTPCR #### [facility] [address] [place] [address] Dr. Dwight Waters pH (U) 6.0 [pH] Normal 5-9 [facility] Comment on above: Performed By: #### U RTPCR #### [facility] [address] [place] [address] Dr. Dwight Waters Protein (U) [Mass/Vol] 30 mg/dL Abnormal NEGATIVE/ TRACE [facility] Comment on above: Performed By: #### U RTPCR #### [facility] [address] [place] [address] Dr. Dwight Waters SPEC GRAVITY >=1.030 Abnormal 1.005-<=1.02 5 [facility] Comment on above: Performed By: #### U RTPCR #### [facility] [facility] [address] [place] [address] Dr. Dwight Waters UR MICRO IND INDICATED Normal [facility] Comment on above: Performed By: #### U RTPCR #### [facility] [address] [place] [address] Dr. Dwight Waters Urobilinogen Qn (U) 0.2 {Alyssa'U}/dL Normal 0.2 - 1. 0 [facility] Comment on above: Performed By: #### U RTPCR #### [facility] [address] [place] [address] Dr. Dwight Waters PROF 14(COMP METB)on 022 Albumin [Mass/Vol] 3.7 g/dL Normal 3.4-5.0 [facility] Comment on above: Performed By: #### C MP #### [facility] [address] [place] [address] Dr. Dwight Waters Albumin/Globulin [Mass ratio] 0.9 {ratio} Normal [facility] Comment on above: Performed By: #### C MP #### [facility] [address] [place] [address] Dr. Dwight Waters ALP [Catalytic activity/Vol] 80 U/L Normal 46-116 [facility] Comment on above: Performed By: #### C MP #### [facility] [address] [place] [address] Dr. Dwight Waters ALT [Catalytic activity/Vol] 24 U/L Normal 16-63 [facility] Comment on above: Performed By: #### C MP #### [facility] [address] [place] [address] Dr. Dwight Waters Anion gap [Moles/Vol] 12.9 mmol/L Normal [facility] Comment on above: Performed By: #### C MP #### [facility] [address] [place] [address] Dr. Dwight Waters AST [Catalytic activity/Vol] 17 U/L Normal 15-37 [facility] Comment on above: Performed By: #### C MP #### [facility] [address] [place] [address] Dr. Dwight Waters Bilirubin [Mass/Vol] 0.8 mg/dL Normal 0.2-1.0 [facility] Comment on above: Performed By: #### C MP #### [facility] [address] [place] [address] Dr. Dwight Wtaers Calcium [Mass/Vol] 9.4 mg/dL Normal 8.5-10.1 [facility] Comment on above: Performed By: #### C MP #### [facility] [address] [place] [address] Dr. Dwight aWters Chloride [Moles/Vol] 106 mmol/L Normal 98-107 [facility] Comment on above: Performed By: #### C MP #### [facility] [address] [place] [address] Dr. Dwight Waters CO2 [Moles/Vol] 25.3 mmol/L Normal 21.0-32.0 [facility] Comment on above: Performed By: #### C MP #### [facility] [address] [place] [address] Dr. Dwight Waters Creatinine [Mass/Vol] 1.29 mg/dL Normal 0.70-1.30 [facility] Comment on above: Performed By: #### C MP #### [facility] [address] [address] [address] Dwight Waters EGFR-AF GRENADIAN >60 Normal >=60 [facility] Comment on above: Performed By: #### C MP #### [facility] [address] [address] [address] Dwight Waters EGFR-NON AF GRENADIAN 59 mL/min/1.73m2 Critically low >=60 [facility] Comment on above: Performed By: #### C MP #### [facility] [address] [place] [address] Dr. Dwight Waters Globulin (S) [Mass/Vol] 4.2 g/dL Normal [facility] Comment on above: Performed By: #### C MP #### [facility] [address] [place] [address] Dr. Dwight Waters Glucose [Mass/Vol] 106 mg/dL Normal 74-106 [facility] Comment on above: Performed By: #### C MP #### [facility] [address] [address] [address] Dwight Waters Potassium [Moles/Vol] 4.2 mmol/L Normal 3.5-5.1 [facility] Comment on above: Performed By: #### C MP #### [facility] [address] [place] [address] Dr. Dwight Waters Protein [Mass/Vol] 7.9 g/dL Normal 6.4-8.2 [facility] Comment on above: Performed By: #### C MP #### [facility] [address] [address] [address] Dwight Waters Sodium [Moles/Vol] 140 mmol/L Normal 136-145 [facility] Comment on above: Performed By: #### C MP #### [facility] [address] [place] [address] Dr. Dwight Waters Urea nitrogen [Mass/Vol] 22.0 mg/dL Critically high 7.0-18.0 [facility] Comment on above: Performed By: #### C MP #### [facility] [address] [place] [address] Dr. Dwight Waters Urea nitrogen/Creatinine [Mass ratio] 17.1 mg/mg Normal [facility] Comment on above: Performed By: #### C MP #### [facility] [address] [place] [address] Dr. Dwight Waters URINE MICROSCOPIC ONLYon BACTERIA TRACE Abnormal NONE SEEN [facility] Comment on above: Performed By: #### U RTPCR #### [facility] [address] [place] [address] Dr. Dwight Waters Bacteria identified Cx Nom (U) INDICATED Normal [facility] Comment on above: Performed By: #### U RTPCR #### [facility] [address] [place] [address] Dr. Dwight Waters CAST NONE SEEN Normal NONE SEEN [facility] Comment on above: Performed By: #### U RTPCR #### [facility] [address] [place] [address] Dr. Dwight Waters Crystals LM Nom (Urine sed) NONE SEEN Normal NONE SEEN [facility] Comment on above: Performed By: #### U RTPCR #### [facility] [address] [place] [address] Dr. Dwight Waters Epithelial cells LM Ql (Urine sed) NONE SEEN Normal NONE SEEN /RARE [facility] Comment on above: Performed By: #### U RTPCR #### [facility] [address] [place] [address] Dr. Dwight Waters MUCOUS NONE SEEN Normal NONE SEEN [facility] Comment on above: Performed By: #### U RTPCR #### [facility] [address] [place] [address] Dr. Dwight Waters RBC 5-10 Abnormal 0-2 [facility] Comment on above: Performed By: #### U RTPCR #### [facility] [address] [place] [address] Dr. Dwight Waters WBC 10-20 Abnormal NONE SEEN [facility] Comment on above: Performed By: #### U RTPCR #### [facility] [address] [address] [address] Dwight Waters ALLOSCREEN RECIPIENT (POST T X PRA)on 06-13-2022 AB SPECIFICITY CLASS COMMENT Antibody Specificity testing performed by [employer]. cPRA calculation based on identification of HLA antibody specificities at MFI >2000 and/or presence of CREG antibodies. [facility] Comment on above: Some of the reagents used for testing in the Clinical Histocompatibility Laboratory have yet to be approved by the FDA. Our certification by CLIA to perform high complexity tests allows us to use these reagents in the context of a stringent QC program, and obviates the need for FDA approval.Testing performed by the [facility] Clinical Histocompatibility Laboratory. [facility] number: [id number]. CLIA number: [id number], Director: Carlito Merchant, PhD, D([facility]). ANTIBODY SPECIFICITY INTERPRETATION Detected [facility] CLASS I SPECIFICITIES Not detected [facility] CLASS II SPECIFICITIES Not detected [facility] HLA Ab (S) 0 % 0 [facility] EXTRA MICROon 06-13-2022 [facility] URINE CULTUREOrdered By: Jah Upton on 06-13-2022 Bacteria identified Cx Nom (Unsp spec) Growth [facility] Bacteria identified Cx Nom (Unsp spec) 10,000-50,000 CFU/mL Mixed skin shimon [facility] Comment on above: Multiple bacterial m orphotypes present. Suggest appropriate recollection if clinically indicated. [facility] CBC,PLATELETSon 06-12-2022 Erythrocyte distribution width (RBC) [Ratio] 13.0 % 10.9 - 14.3 % [facility] Hematocrit (Bld) [Volume fraction] 43.2 % 39.6 - 48.8 % [facility] Hemoglobin (Bld) [Mass/Vol] 13.9 g/dL 13.4 - 16.8 g/dL [facility] Interpretation and review of laboratory results Normal [facility] MCH (RBC) [Entitic mass] 28.7 pg 26.1 - 33.3 pg [facility] MCHC (RBC) [Mass/Vol] 32.2 g/dL 31.9 - 36.5 g/dL [facility] MCV (RBC) [Entitic vol] 89.1 fL 79.0 - 94.5 fL [facility] Platelet mean volume (Bld) [Entitic vol] 10.5 fL 8.7 - 12.3 fL [facility] Platelets (Bld) [#/Vol] 269 10*3/uL 146 - 337 K/uL [facility] RBC (Bld) [#/Vol] 4.85 10*6/uL [facility] WBC (Bld) [#/Vol] 7.68 10*3/uL 3.73 - 10. 10 K/uL [facility] CHEM 7 (LYTES,BUN,CREA,GLUC) on 06-12-2022 Anion gap [Moles/Vol] 14 mmol/L 7 - 17 mmol/L [facility] Chloride [Moles/Vol] 106 mmol/L 98 - 10 8 mmol/L [facility] CO2 [Moles/Vol] 25 mmol/L 21 - 31 mmol/L [facility] Creatinine [Mass/Vol] 1.26 mg/dL 0.70 - 1.30 mg/dL [facility] GFR/1.73 sq M.predicted CKD-EPI (S/P/Bld) [Vol rate/Area] 69 >=60 mL/min/1.73m 2 [facility] Comment on above: Reported eGFR is bas ed on the CKD-EPI 2020 equation using creatinine, age, and sex. Glucose [Mass/Vol] 83 mg/dL 70 - 99 mg/dL [facility] Osmolality Calc [Osmolality] 295 [facility] Potassium [Moles/Vol] 3.8 mmol/L 3.5 - 5.0 mmol/L [facility] Sodium [Moles/Vol] 141 mmol/L 135 - 145 mmol/L [facility] Urea nitrogen [Mass/Vol] 18 mg/dL 7 - 25 mg/dL [facility] Urea nitrogen/Creatinine [Mass ratio] 14 mg/mg [facility] GGTon 06-12-2022 Gamma glutamyl transferase [Catalytic activity/Vol] 20 U/L 8 - 64 U/L [facility] HEMOGLOBIN [id number] By: Link Roche on 06-12-2022 Average glucose Estimated from glycated hemoglobin (Bld) [Mass/Vol] 126 mg/dL [facility] HbA1c (Bld) [Mass fraction] 6.0 % High 4.7 - 5.6 % [facility] Interpretation and review of laboratory results Abnormal [facility] HEPATIC FUNCTION PANELon Albumin [Mass/Vol] 4.3 g/dL 3.5 - 5.0 g/dL [facility] ALP [Catalytic activity/Vol] 78 U/L 32 - 126 U/L [facility] ALT [Catalytic activity/Vol] 12 U/L 10 - 52 U/L [facility] AST [Catalytic activity/Vol] 16 U/L 10 - 39 U/L [facility] Bilirubin [Mass/Vol] 1.0 mg/dL <1.5 [facility] Bilirubin.direct [Mass/Vol] 0.2 mg/dL <0.3 [facility] Protein [Mass/Vol] 7.5 g/dL 6.4 - 8.3 g/dL [facility] No Panel Informationon 06-12 Interpretation and review of laboratory results Normal [facility] PTH INTACTOrdered By: Marli Lizarraga on 06-12-2022 Interpretation and review of laboratory results Abnormal [facility] Parathyrin.intact [Mass/Vol] 79.7 pg/mL High 14.0 - 72.0 pg/mL [facility] URINALYSIS REFLEX TO CULTURE PERFORMABLEon 06-12-2022 Appearance (U) Clear Clear [facility] Bacteria LM Ql (Urine sed) ABSENT ABSENT [facility] Color (U) Yellow Yellow [facility] Epithelial cells.squamous LM Ql (Urine sed) 1/hpf = 1+ 1/hpf = 1+, 2-5/hpf = 2+, 0/hpf = 0+, ABSENT [facility] Glucose Test strip (U) [Mass/Vol] Negative Negative [facility] Interpretation and review of laboratory results Abnormal [facility] Ketones (U) [Mass/Vol] Trace Abnormal Negative [facility] Leukocyte esterase Test strip Ql (U) Small Abnormal Negative [facility] Nitrite Ql (U) Negative Negative [facility] pH (U) 5.5 [pH] 5.0 - 7.0 [facility] Protein (U) [Mass/Vol] 30 mg/dL Abnormal Negative [facility] RBC (U) [#/Vol] Trace Abnormal Negative [facility] RBC LM.HPF (Urine sed) [#/Area] 0-2 0 - 2 /HPF [facility] Specific gravity (U) [Rel density] 1.026 [facility] Urobilinogen (U) [Mass/Vol] 0.2 E.U./dL 0.2 E.U/dL, 1.0 E.U/dL [facility] WBC LM.HPF (Urine sed) [#/Area] 10-20 Abnormal 0 - 5 /HPF [facility] URINE PROTEIN/CREA RATIO, RA NDOMon 06-12-2022 Creatinine (24H U) [Mass/Vol] 231.68 mg/dL [facility] Protein Unsp time (U) [Mass/Vol] 49 mg/dL [facility] Protein/Creatinine (U) [Mass ratio] 0.211 mg/g [facility] FK506 (TACROLIMUS) WHOLE BLO ODon 06-09-2022 Tacrolimus (FK506), Blood 9.8 ng/mL Normal 2.0-20.0 [facility] Comment on above: Result Comment: Trou gh (immediately following transplant) 15.0 . Trough (steady state, 2 weeks or more after transplant): 3.0 - 8.0 . Performed by LC-MS/MS technology. Performed By: #### U RTPCR #### [facility] [address] [place] [address] Dr. Dwight Waters ALBUMINon 06-06-2022 Albumin [Mass/Vol] 3.8 g/dL Normal 3.4-5.0 [facility] Comment on above: Performed By: #### C MP #### [facility] [address] [place] [address] Dr. Dwight Waters ALKALINE PHOSPHAon ALP [Catalytic activity/Vol] 82 U/L Normal 46-116 [facility] Comment on above: Performed By: #### C MP #### [facility] [address] [place] [address] Dr. Dwight Waters BILIRUBIN CONJUGATED (DIRECT )on 06-06-2022 BILI, CONJUGATED 0.2 mg/dL Normal 0.0-0.2 [facility] Comment on above: Performed By: #### C BC #### [facility] [address] [place] [address] Dr. Dwight Wtaers BILIRUBIN TOTALon 06-06-2022 Bilirubin [Mass/Vol] 1.0 mg/dL Normal 0.2-1.0 [facility] Comment on above: Performed By: #### C BC #### [facility] [address] [place] [address] Dr. Dwight Waters BUNon 06-06-2022 Urea nitrogen [Mass/Vol] 18.0 mg/dL Normal 7.0-18.0 [facility] Comment on above: Performed By: #### C BC #### [facility] [address] [place] [address] Dr. Dwight Waters CALCIUMon 06-06-2022 Calcium [Mass/Vol] 9.4 mg/dL Normal 8.5-10.1 [facility] Comment on above: Performed By: #### C MP #### [facility] [address] [place] [address] Dr. Dwight Waters CBC AUTO DIFFon 06-06-2022 BASO # 0.1 103/ul Normal 0.0-0.1 [facility] Comment on above: Performed By: #### U RTPCR #### [facility] [address] [address] [address] Dwight Waters Basophils/100 WBC (Bld) 0.8 % Normal 0.2-2.0 [facility] Comment on above: Performed By: #### U RTPCR #### [facility] [address] [address] [address] Dwihgt Waters EO # 0.3 103/ul Normal 0.0-0.7 [facility] Comment on above: Performed By: #### U RTPCR #### [facility] [address] [address] [address] Dwight Waters Eosinophils/100 WBC (Bld) 3.3 % Normal 0.9-7.0 [facility] Comment on above: Performed By: #### U RTPCR #### [facility] [address] [place] [address] Dr. Dwight Waters Erythrocyte distribution width (RBC) [Ratio] 12.4 % Normal 11.0-15.0 [facility] Comment on above: Performed By: #### U RTPCR #### [facility] [address] [place] [address] Dr. Dwight Waters Hematocrit (Bld) [Volume fraction] 45.1 % Normal 42.0-54.0 [facility] Comment on above: Performed By: #### U RTPCR #### [facility] [address] [place] [address] Dr. Dwight Waters Hemoglobin (Bld) [Mass/Vol] 14.4 g/dL Normal 14.0-18.0 [facility] Comment on above: Performed By: #### U RTPCR #### [facility] [address] [place] [address] Dr. Dwight Waters IG # 0.01 10e3/ul Normal 0.00-0.03 [facility] Comment on above: Performed By: #### U RTPCR #### [facility] [address] [place] [address] Dr. Dwight Waters IG % 0.1 % Normal 0.0-0.5 [facility] Comment on above: Performed By: #### U RTPCR #### [facility] [address] [place] [address] Dr. Dwight Waters LYMPH # 2.2 103/ul Normal 1.2-3.8 [facility] Comment on above: Performed By: #### U RTPCR #### [facility] [address] [place] [address] Dr. Dwight Waters Lymphocytes/100 WBC (Bld) 30.0 % Normal 20.5-60.0 [facility] Comment on above: Performed By: #### U RTPCR #### [facility] [address] [place] [address] Dr. Dwight Waters MANUAL DIFF REQ NO Normal [facility] Comment on above: Performed By: #### U RTPCR #### [facility] [address] [place] [address] Dr. Dwight Waters MCH (RBC) [Entitic mass] 28.2 pg Normal 25.9-34.0 [facility] Comment on above: Performed By: #### U RTPCR #### [facility] [address] [place] [address] Dr. Dwight Waters MCHC (RBC) [Mass/Vol] 31.9 g/dL Normal 29.9-35.2 [facility] Comment on above: Performed By: #### U RTPCR #### [facility] [address] [place] [address] Dr. Dwight Waters MCV (RBC) [Entitic vol] 88.3 fL Normal 80.0-94.0 [facility] Comment on above: Performed By: #### U RTPCR #### [facility] [address] [place] [address] Dr. Dwight Waters MONO # 0.6 103/ul Normal 0.3-0.8 [facility] Comment on above: Performed By: #### U RTPCR #### [facility] [address] [place] [address] Dr. Dwight Waters Monocytes/100 WBC (Bld) 8.2 % Normal 1.7-12.0 [facility] Comment on above: Performed By: #### U RTPCR #### [facility] [address] [address] [address] Dwight Waters NEUT # 4.3 103/ul Normal 1.4-6.5 [facility] Comment on above: Performed By: #### U RTPCR #### [facility] [address] [address] [address] Dwight Waters Neutrophils/100 WBC (Bld) 57.6 % Normal 43.0-75.0 [facility] Comment on above: Performed By: #### U RTPCR #### [facility] [address] [address] [address] Dwight Waters Platelet mean volume (Bld) [Entitic vol] 9.7 fL Normal 9.5-13.5 [facility] Comment on above: Performed By: #### U RTPCR #### [facility] [address] [place] [address] Dr. Dwight Waters PLT 297 103/ul Normal 150-450 [facility] Comment on above: Performed By: #### U RTPCR #### [facility] [address] [place] [address] Dr. Dwight Waters RBC 5.11 106/ul Normal 4.70-6.10 [facility] Comment on above: Performed By: #### U RTPCR #### [facility] [address] [place] [address] Dr. Dwight Waters WBC 7.5 103/ul Normal 4.0-11.0 [facility] Comment on above: Performed By: #### U RTPCR #### [facility] [address] [place] [address] Dr. Dwight Waters CHLORIDEon 06-06-2022 Chloride [Moles/Vol] 107 mmol/L Normal 98-107 [facility] Comment on above: Performed By: #### C BC #### [facility] [address] [place] [address] Dr. Dwight Waters CO2on 06-06-2022 CO2 [Moles/Vol] 27.4 mmol/L Normal 21.0-32.0 [facility] Comment on above: Performed By: #### C BC #### [facility] [address] [address] [address] Dwight Waters CREATININEon 06-06-2022 Creatinine [Mass/Vol] 1.20 mg/dL Normal 0.70-1.30 [facility] Comment on above: Performed By: #### C BC #### [facility] [address] [place] [address] Dr. Dwight Waters EGFR-AF GRENADIAN >60 Normal >=60 [facility] Comment on above: Performed By: #### C BC #### [facility] [address] [place] [address] Dr. Dwight Waters EGFR-NON AF GRENADIAN >60 Normal >=60 [facility] Comment on above: Performed By: #### C BC #### [facility] [address] [place] [address] Dr. Dwight Waters GGTon 06-06-2022 Gamma glutamyl transferase [Catalytic activity/Vol] 29 U/L Normal 15-85 [facility] Comment on above: Performed By: #### C BC #### [facility] [address] [place] [address] Dr. Dwight Waters GLUCOSE BLOODon 06-06-2022 Glucose [Mass/Vol] 112 mg/dL Critically high 74-106 [facility] Comment on above: Performed By: #### C BC #### [facility] [address] [place] [address] Dr. Dwight Waters MAGNESIUMon 06-06-2022 Magnesium [Mass/Vol] 1.3 mg/dL Critically low 1.8-2.4 [facility] Comment on above: Performed By: #### C MP #### [facility] [address] [place] [address] Dr. Dwight Waters NAon 06-06-2022 Sodium [Moles/Vol] 141 mmol/L Normal 136-145 [facility] Comment on above: Performed By: #### C MP #### [facility] [address] [place] [address] Dr. Dwight Waters PHOSPHORUSon 06-06-2022 Phosphate [Mass/Vol] 3.1 mg/dL Normal 2.6-4.7 [facility] Comment on above: Performed By: #### C MP #### [facility] [address] [place] [address] Dr. Dwight Waters POTASSIUMon 06-06-2022 Potassium [Moles/Vol] 4.3 mmol/L Normal 3.5-5.1 [facility] Comment on above: Performed By: #### C BC #### [facility] [address] [place] [address] Dr. Dwight Waters SGOTon 06-06-2022 AST [Catalytic activity/Vol] 16 U/L Normal 15-37 [facility] Comment on above: Performed By: #### C BC #### [facility] [address] [place] [address] Dr. Dwight Waters SGPTon 06-06-2022 ALT [Catalytic activity/Vol] 50 U/L Normal 16-63 [facility] Comment on above: Performed By: #### C BC #### [facility] [address] [place] [address] Dr. Dwight Waters Bacteria identified Cx Nom ( Bld)on 05-21-2022 Bacteria identified Cx Nom (Unsp spec) NO GROWTH DAY 5 OF 5 [facility] Results may be compr omised due to volume of BACT\ALERT bottle exceeding 10mLs . The optimal blood volume is 8-10 mls per aerobic/anaerobic blood culture bottle. [facility] CALCIUMon 05-20-2022 Calcium [Mass/Vol] 9.1 mg/dL 8.6 - 10. 5 mg/dL [facility] CBC,PLATELETSon 05-20-2022 Erythrocyte distribution width (RBC) [Ratio] 12.5 % 10.9 - 14.3 % [facility] Hematocrit (Bld) [Volume fraction] 37.1 % Low 39.6 - 48.8 % [facility] Hemoglobin (Bld) [Mass/Vol] 12.3 g/dL Low 13.4 - 16.8 g/dL [facility] Interpretation and review of laboratory results Abnormal [facility] MCH (RBC) [Entitic mass] 28.9 pg 26.1 - 33.3 pg [facility] MCHC (RBC) [Mass/Vol] 33.2 g/dL 31.9 - 36.5 g/dL [facility] MCV (RBC) [Entitic vol] 87.3 fL 79.0 - 94.5 fL [facility] Platelet mean volume (Bld) [Entitic vol] 9.9 fL 8.7 - 12.3 fL [facility] Platelets (Bld) [#/Vol] 234 10*3/uL 146 - 337 K/uL [facility] RBC (Bld) [#/Vol] 4.25 10*6/uL Low [facility] WBC (Bld) [#/Vol] 6.31 10*3/uL 3.73 - 10. 10 K/uL [facility] CHEM 7 (LYTES,BUN,CREA,GLUC) on 05-20-2022 Anion gap [Moles/Vol] 15 mmol/L 7 - 17 mmol/L [facility] Chloride [Moles/Vol] 111 mmol/L High 98 - 10 8 mmol/L [facility] CO2 [Moles/Vol] 22 mmol/L 21 - 31 mmol/L [facility] Creatinine [Mass/Vol] 1.10 mg/dL 0.70 - 1.30 mg/dL [facility] GFR/1.73 sq M.predicted CKD-EPI (S/P/Bld) [Vol rate/Area] 81 >=60 mL/min/1.73m 2 [facility] Comment on above: Reported eGFR is bas ed on the CKD-EPI 2020 equation using creatinine, age, and sex. Glucose [Mass/Vol] 92 mg/dL 70 - 99 mg/dL [facility] Interpretation and review of laboratory results Abnormal [facility] Osmolality Calc [Osmolality] 302 [facility] Potassium [Moles/Vol] 4.4 mmol/L 3.5 - 5.0 mmol/L [facility] Sodium [Moles/Vol] 144 mmol/L 135 - 145 mmol/L [facility] Urea nitrogen [Mass/Vol] 18 mg/dL 7 - 25 mg/dL [facility] Urea nitrogen/Creatinine [Mass ratio] 16 mg/mg [facility] MAGNESIUMon 05-20-2022 Interpretation and review of laboratory results Abnormal [facility] Magnesium [Mass/Vol] 1.5 mg/dL Low 1.6 - 2 .6 mg/dL [facility] No Panel Informationon 05-20 Interpretation and review of laboratory results Normal [facility] PHOSPHATE, INORGANICon 05-20 Phosphate [Mass/Vol] 3.3 mg/dL 2.2 - 4 .6 mg/dL [facility] RF Unspecified body region V iews [...] projections of kidneys, ureters, and bladder. FINDINGS: Manager Photo images: Manager Photo radiographs of the abdomen reveal a nonobstructive [...] Contrast refluxes up the ureter to the [place] right kidney that is grossly normal appearing. [...] projections of kidneys, ureters, and bladder. FINDINGS: Manager Photo images: Manager Photo radiographs of the abdomen reveal a nonobstructive [...] Contrast refluxes up the ureter to the [place] right kidney that is grossly normal appearing. [...] on prior ultrasound. Procedure performed by TIFFANY Neley under the direct supervision of Dr. Lizz Campos. I personally viewed and interpreted these images and I have reviewed and approved this report. [facility] Radiology Study observation (narrative) [facility] RF Unspecified body region V iews during surgeryOrdered By: Lizz Campos on 05-20-2022 [facility] Work Phone: CALCIUMon 05-19-2022 Calcium [Mass/Vol] 9.2 mg/dL 8.6 - 10. 5 mg/dL [facility] Calcium [Mass/Vol] 8.6 mg/dL 8.6 - 10. 5 mg/dL [facility] CBC,PLATELETSon 05-19-2022 Erythrocyte distribution width (RBC) [Ratio] 12.4 % 10.9 - 14.3 % [facility] Hematocrit (Bld) [Volume fraction] 38.0 % Low 39.6 - 48.8 % [facility] Hemoglobin (Bld) [Mass/Vol] 12.0 g/dL Low 13.4 - 16.8 g/dL [facility] Interpretation and review of laboratory results Abnormal [facility] MCH (RBC) [Entitic mass] 28.6 pg 26.1 - 33.3 pg [facility] MCHC (RBC) [Mass/Vol] 31.6 g/dL Low 31.9 - 36.5 g/dL [facility] MCV (RBC) [Entitic vol] 90.5 fL 79.0 - 94.5 fL [facility] Platelet mean volume (Bld) [Entitic vol] 9.7 fL 8.7 - 12.3 fL [facility] Platelets (Bld) [#/Vol] 199 10*3/uL 146 - 337 K/uL [facility] RBC (Bld) [#/Vol] 4.20 10*6/uL Low [facility] WBC (Bld) [#/Vol] 6.81 10*3/uL 3.73 - 10. 10 K/uL [facility] CHEM 7 (LYTES,BUN,CREA,GLUC) on 05-19-2022 Anion gap [Moles/Vol] 13 mmol/L 7 - 17 mmol/L [facility] Chloride [Moles/Vol] 105 mmol/L 98 - 10 8 mmol/L [facility] CO2 [Moles/Vol] 30 mmol/L 21 - 31 mmol/L [facility] Creatinine [Mass/Vol] 1.39 mg/dL High 0.70 - 1.30 mg/dL [facility] GFR/1.73 sq M.predicted CKD-EPI (S/P/Bld) [Vol rate/Area] 61 >=60 mL/min/1.73m 2 [facility] Comment on above: Reported eGFR is bas ed on the CKD-EPI 2020 equation using creatinine, age, and sex. Glucose [Mass/Vol] 121 mg/dL High 70 - 99 mg/dL [facility] Interpretation and review of laboratory results Abnormal [facility] Osmolality Calc [Osmolality] 303 [facility] Potassium [Moles/Vol] 3.8 mmol/L 3.5 - 5.0 mmol/L [facility] Sodium [Moles/Vol] 144 mmol/L 135 - 145 mmol/L [facility] Urea nitrogen [Mass/Vol] 18 mg/dL 7 - 25 mg/dL [facility] Urea nitrogen/Creatinine [Mass ratio] 13 mg/mg [facility] Anion gap [Moles/Vol] 15 mmol/L 7 - 17 mmol/L [facility] Chloride [Moles/Vol] 106 mmol/L 98 - 10 8 mmol/L [facility] CO2 [Moles/Vol] 24 mmol/L 21 - 31 mmol/L [facility] Creatinine [Mass/Vol] 1.46 mg/dL High 0.70 - 1.30 mg/dL [facility] GFR/1.73 sq M.predicted CKD-EPI (S/P/Bld) [Vol rate/Area] 58 Low >=60 mL/min/1.73m 2 [facility] Comment on above: Reported eGFR is bas ed on the CKD-EPI 2020 equation using creatinine, age, and sex. Glucose [Mass/Vol] 103 mg/dL High 70 - 99 mg/dL [facility] Interpretation and review of laboratory results Abnormal [facility] Osmolality Calc [Osmolality] 298 [facility] Potassium [Moles/Vol] 3.9 mmol/L 3.5 - 5.0 mmol/L [facility] Sodium [Moles/Vol] 141 mmol/L 135 - 145 mmol/L [facility] Urea nitrogen [Mass/Vol] 21 mg/dL 7 - 25 mg/dL [facility] Urea nitrogen/Creatinine [Mass ratio] 14 mg/mg [facility] MAGNESIUMon 05-19-2022 Magnesium [Mass/Vol] 2.0 mg/dL 1.6 - 2 .6 mg/dL [facility] Magnesium [Mass/Vol] 1.7 mg/dL 1.6 - 2 .6 mg/dL [facility] No Panel Informationon 05-19 Interpretation and review of laboratory results Normal [facility] Interpretation and review of laboratory results Normal [facility] PHOSPHATE, INORGANICon 05-19 Phosphate [Mass/Vol] 3.0 mg/dL 2.2 - 4 .6 mg/dL [facility] Phosphate [Mass/Vol] 2.7 mg/dL 2.2 - 4 .6 mg/dL [facility] CALCIUMon 05-18-2022 Calcium [Mass/Vol] 9.1 mg/dL 8.6 - 10. 5 mg/dL [facility] CBC,PLATELETSon 05-18-2022 Erythrocyte distribution width (RBC) [Ratio] 12.5 % 10.9 - 14.3 % [facility] Hematocrit (Bld) [Volume fraction] 37.3 % Low 39.6 - 48.8 % [facility] Hemoglobin (Bld) [Mass/Vol] 11.9 g/dL Low 13.4 - 16.8 g/dL [facility] Interpretation and review of laboratory results Abnormal [facility] MCH (RBC) [Entitic mass] 28.9 pg 26.1 - 33.3 pg [facility] MCHC (RBC) [Mass/Vol] 31.9 g/dL 31.9 - 36.5 g/dL [facility] MCV (RBC) [Entitic vol] 90.5 fL 79.0 - 94.5 fL [facility] Platelet mean volume (Bld) [Entitic vol] 10.1 fL 8.7 - 12.3 fL [facility] Platelets (Bld) [#/Vol] 189 10*3/uL 146 - 337 K/uL [facility] RBC (Bld) [#/Vol] 4.12 10*6/uL Low [facility] WBC (Bld) [#/Vol] 10.19 10*3/uL High 3.73 - 10 .10 K/uL [facility] CHEM 7 (LYTES,BUN,CREA,GLUC) on 05-18-2022 Anion gap [Moles/Vol] 13 mmol/L 7 - 17 mmol/L [facility] Chloride [Moles/Vol] 102 mmol/L 98 - 10 8 mmol/L [facility] CO2 [Moles/Vol] 26 mmol/L 21 - 31 mmol/L [facility] Creatinine [Mass/Vol] 1.91 mg/dL High 0.70 - 1.30 mg/dL [facility] GFR/1.73 sq M.predicted CKD-EPI (S/P/Bld) [Vol rate/Area] 42 Low >=60 mL/min/1.73m 2 [facility] Comment on above: Reported eGFR is bas ed on the CKD-EPI 2020 equation using creatinine, age, and sex. Glucose [Mass/Vol] 158 mg/dL High 70 - 99 mg/dL [facility] Osmolality Calc [Osmolality] 297 [facility] Potassium [Moles/Vol] 4.0 mmol/L 3.5 - 5.0 mmol/L [facility] Sodium [Moles/Vol] 137 mmol/L 135 - 145 mmol/L [facility] Urea nitrogen [Mass/Vol] 30 mg/dL High 7 - 25 mg/dL [facility] Urea nitrogen/Creatinine [Mass ratio] 16 mg/mg [facility] CHEM 7 (LYTES,BUN,CREA,GLUC) Ordered By: Tamiko Thapa on 05-18-2022 Anion gap [Moles/Vol] 13 mmol/L 7 - 17 mmol/L [facility] Chloride [Moles/Vol] 104 mmol/L 98 - 10 8 [facility]L [facility] CO2 [Moles/Vol] 26 mmol/L 21 - 31 mmol/L [facility] Creatinine [Mass/Vol] 2.96 mg/dL High 0.70 - 1.30 mg/dL [facility] GFR/1.73 sq M.predicted CKD-EPI (S/P/Bld) [Vol rate/Area] 25 Low >=60 mL/min/1.73m 2 [facility] Comment on above: Reported eGFR is bas ed on the CKD-EPI 2020 equation using creatinine, age, and sex. Glucose [Mass/Vol] 136 mg/dL High 70 - 99 mg/dL [facility] Interpretation and review of laboratory results Abnormal [facility] Osmolality Calc [Osmolality] 304 [facility] Potassium [Moles/Vol] 4.2 mmol/L 3.5 - 5.0 mmol/L [facility] Sodium [Moles/Vol] 139 mmol/L 135 - 145 mmol/L [facility] Urea nitrogen [Mass/Vol] 41 mg/dL High 7 - 25 mg/dL [facility] Urea nitrogen/Creatinine [Mass ratio] 14 mg/mg [facility] MAGNESIUMon 05-18-2022 Magnesium [Mass/Vol] 2.2 mg/dL 1.6 - 2 .6 mg/dL [facility] Interpretation and review of laboratory results Normal [facility] Magnesium [Mass/Vol] 1.7 mg/dL 1.6 - 2 .6 mg/dL [facility] No Panel Informationon 05-18 Interpretation and review of laboratory results Abnormal [facility] Interpretation and review of laboratory results Normal [facility] PHOSPHATE, INORGANICon 05-18 Phosphate [Mass/Vol] 2.0 mg/dL Low 2.2 - 4 .6 mg/dL [facility] Interpretation and review of laboratory results Normal [facility] Phosphate [Mass/Vol] 2.8 mg/dL 2.2 - 4 .6 mg/dL [facility] PT,INR,PTTon 05-18-2022 aPTT Coag (PPP) [Time] 31.0 s [facility] INR Coag (Bld) [Relative time] 1.1 {INR} [facility] Interpretation and review of laboratory results Abnormal [facility] PT Coag (PPP) [Time] 14.4 s High [facility] URINE CULTUREOrdered By: Sylvia Campos on 05-18-2022 Bacteria identified Cx Nom (Unsp spec) No Growth [facility] CBC,PLATELETSon 05-17-2022 Erythrocyte distribution width (RBC) [Ratio] 12.8 % 10.9 - 14.3 % [facility] Hematocrit (Bld) [Volume fraction] 42.8 % 39.6 - 48.8 % [facility] Hemoglobin (Bld) [Mass/Vol] 13.3 g/dL Low 13.4 - 16.8 g/dL [facility] Interpretation and review of laboratory results Abnormal [facility] MCH (RBC) [Entitic mass] 28.9 pg 26.1 - 33.3 pg [facility] MCHC (RBC) [Mass/Vol] 31.1 g/dL Low 31.9 - 36.5 g/dL [facility] MCV (RBC) [Entitic vol] 92.8 fL 79.0 - 94.5 fL [facility] Platelet mean volume (Bld) [Entitic vol] 10.3 fL 8.7 - 12.3 fL [facility] Platelets (Bld) [#/Vol] 188 10*3/uL 146 - 337 K/uL [facility] RBC (Bld) [#/Vol] 4.61 10*6/uL [facility] WBC (Bld) [#/Vol] 16.61 10*3/uL High 3.73 - 10 .10 K/uL [facility] CHEM 7 (LYTES,BUN,CREA,GLUC) Ordered By: Kaylah Mc on 05-17-2022 Anion gap [Moles/Vol] 15 mmol/L 7 - 17 mmol/L [facility] Chloride [Moles/Vol] 103 mmol/L 98 - 10 8 mmol/L [facility] CO2 [Moles/Vol] 23 mmol/L 21 - 31 mmol/L [facility] Creatinine [Mass/Vol] 5.95 mg/dL High 0.70 - 1.30 mg/dL [facility] GFR/1.73 sq M.predicted CKD-EPI (S/P/Bld) [Vol rate/Area] 11 Low >=60 mL/min/1.73m 2 [facility] Comment on above: Reported eGFR is bas ed on the CKD-EPI 2020 equation using creatinine, age, and sex. Glucose [Mass/Vol] 165 mg/dL High 70 - 99 mg/dL [facility] Interpretation and review of laboratory results Abnormal [facility] Osmolality Calc [Osmolality] 305 [facility] Potassium [Moles/Vol] 4.6 mmol/L 3.5 - 5.0 mmol/L [facility] Sodium [Moles/Vol] 136 mmol/L 135 - 145 mmol/L [facility] Urea nitrogen [Mass/Vol] 52 mg/dL High 7 - 25 mg/dL [facility] Urea nitrogen/Creatinine [Mass ratio] 9 mg/mg [facility] CHEM 7 (LYTES,BUN,CREA,GLUC) Ordered By: Kehinde Gutierrez on 05-17-2022 Anion gap [Moles/Vol] 24 mmol/L High 7 - 17 mmol/L [facility] Chloride [Moles/Vol] 100 mmol/L 98 - 10 8 mmol/L [facility] CO2 [Moles/Vol] 16 mmol/L Low 21 - 31 mmol/L [facility] Creatinine [Mass/Vol] 8.08 mg/dL High 0.70 - 1.30 mg/dL [facility] GFR/1.73 sq M.predicted CKD-EPI (S/P/Bld) [Vol rate/Area] 7 Low >=60 mL/min/1.73m 2 [facility] Comment on above: Reported eGFR is bas ed on the CKD-EPI 2020 equation using creatinine, age, and sex. Glucose [Mass/Vol] 164 mg/dL High 70 - 99 mg/dL [facility] Interpretation and review of laboratory results Abnormal [facility] Osmolality Calc [Osmolality] 305 [facility] Potassium [Moles/Vol] 5.0 mmol/L 3.5 - 5.0 mmol/L [facility] Sodium [Moles/Vol] 135 mmol/L 135 - 145 mmol/L [facility] Urea nitrogen [Mass/Vol] 56 mg/dL High 7 - 25 mg/dL [facility] Urea nitrogen/Creatinine [Mass ratio] 7 mg/mg [facility] LAVENDER TOP TUBEon 05-17-20 [facility] MAGNESIUMon 05-17-2022 Interpretation and review of laboratory results Normal [facility] Magnesium [Mass/Vol] 1.8 mg/dL 1.6 - 2 .6 mg/dL [facility] Interpretation and review of laboratory results Normal [facility] Magnesium [Mass/Vol] 1.6 mg/dL 1.6 - 2 .6 mg/dL [facility] No Panel Informationon 05-17 [facility] PHOSPHATE, INORGANICon 05-17 Interpretation and review of laboratory results Abnormal [facility] Phosphate [Mass/Vol] 4.9 mg/dL High 2.2 - 4 .6 mg/dL [facility] PT,INR,PTTon 05-17-2022 aPTT Coag (PPP) [Time] 33.0 s [facility] INR Coag (Bld) [Relative time] 1.3 {INR} High [facility] Interpretation and review of laboratory results Abnormal [facility] PT Coag (PPP) [Time] 15.7 s High [facility] Portable XR Chest Viewson IMPRESSION: [...] Stable cardiomegaly. IMPRESSION IMPRESSION: No acute findings. [facility] Radiology Study observation (narrative) [facility] Portable XR Chest ViewsOrder ed By: David Sanz on 05-17-2022 [facility] Work Phone: URINALYSISOrdered By: Michael patel Ma on 05-17-2022 Appearance (U) Cloudy Abnormal Clear [facility] Comment on above: Results may be inacc urate due to color interference. Clinical correlation recommended. Bacteria LM Ql (Urine sed) ABSENT ABSENT [facility] Color (U) Red Abnormal Yellow [facility] Comment on above: Results may be inacc urate due to color interference. Clinical correlation recommended. Epithelial cells.squamous LM Ql (Urine sed) ABSENT 1/hpf = 1+, 2-5/hpf = 2+, 0/hpf = 0+, ABSENT [facility] Glucose Test strip (U) [Mass/Vol] Negative Negative [facility] Comment on above: Results may be inacc urate due to color interference. Clinical correlation recommended. Interpretation and review of laboratory results Abnormal [facility] Ketones (U) [Mass/Vol] Trace Abnormal Negative [facility] Comment on above: Results may be inacc urate due to color interference. Clinical correlation recommended. Leukocyte esterase Test strip Ql (U) Large Abnormal Negative [facility] Comment on above: Results may be inacc urate due to color interference. Clinical correlation recommended. Nitrite Ql (U) Negative Negative [facility] Comment on above: Results may be inacc urate due to color interference. Clinical correlation recommended. pH (U) 5.0 [pH] 5.0 - 7.0 [facility] Comment on above: Results may be inacc urate due to color interference. Clinical correlation recommended. Protein (U) [Mass/Vol] mg/dL Abnormal Negative [facility] Comment on above: Results may be inacc urate due to color interference. Clinical correlation recommended. RBC (U) [#/Vol] Large Abnormal Negative [facility] Comment on above: Results may be inacc urate due to color interference. Clinical correlation recommended. RBC LM.HPF (Urine sed) [#/Area] /[HPF] Abnormal 0 - 2 /HPF [facility] Specific gravity (U) [Rel density] 1.016 [facility] Comment on above: Results may be inacc urate due to color interference. Clinical correlation recommended. Urobilinogen (U) [Mass/Vol] 0.2 E.U./dL 0.2 E.U/dL, 1.0 E.U/dL [facility] Comment on above: Results may be inacc urate due to color interference. Clinical correlation recommended. WBC LM.HPF (Urine sed) [#/Area] /[HPF] Abnormal 0 - 5 /HPF [facility] URINE CULTUREOrdered By: Tyler Tiwari on 05-17-2022 Bacteria identified Cx Nom (Unsp spec) No Growth [facility] CBC,PLATELETSon 05-16-2022 Erythrocyte distribution width (RBC) [Ratio] 12.9 % 10.9 - 14.3 % [facility] Hematocrit (Bld) [Volume fraction] 46.5 % 39.6 - 48.8 % [facility] Hemoglobin (Bld) [Mass/Vol] 14.7 g/dL 13.4 - 16.8 g/dL [facility] Interpretation and review of laboratory results Abnormal [facility] MCH (RBC) [Entitic mass] 28.3 pg 26.1 - 33.3 pg [facility] MCHC (RBC) [Mass/Vol] 31.6 g/dL Low 31.9 - 36.5 g/dL [facility] MCV (RBC) [Entitic vol] 89.6 fL 79.0 - 94.5 fL [facility] Platelet mean volume (Bld) [Entitic vol] 10.3 fL 8.7 - 12.3 fL [facility] Platelets (Bld) [#/Vol] 188 10*3/uL 146 - 337 K/uL [facility] RBC (Bld) [#/Vol] 5.19 10*6/uL [facility] WBC (Bld) [#/Vol] 12.55 10*3/uL High 3.73 - 10 .10 K/uL [facility] CHEM 7 (LYTES,BUN,CREA,GLUC) Ordered By: Alma Pena on 05-16-2022 Anion gap [Moles/Vol] 14 mmol/L 7 - 17 mmol/L [facility] Chloride [Moles/Vol] 103 mmol/L 98 - 10 8 mmol/L [facility] CO2 [Moles/Vol] 22 mmol/L 21 - 31 mmol/L [facility] Creatinine [Mass/Vol] 6.09 mg/dL High 0.70 - 1.30 mg/dL [facility] GFR/1.73 sq M.predicted CKD-EPI (S/P/Bld) [Vol rate/Area] 10 Low >=60 mL/min/1.73m 2 [facility] Comment on above: Reported eGFR is bas ed on the CKD-EPI 2020 equation using creatinine, age, and sex. Glucose [Mass/Vol] 134 mg/dL High 70 - 99 mg/dL [facility] Interpretation and review of laboratory results Abnormal [facility] Osmolality Calc [Osmolality] 298 [facility] Potassium [Moles/Vol] 4.9 mmol/L 3.5 - 5.0 mmol/L [facility] Sodium [Moles/Vol] 134 mmol/L Low 135 - 145 mmol/L [facility] Comment on above: Results inconsistent with previous results Urea nitrogen [Mass/Vol] 49 mg/dL High 7 - 25 mg/dL [facility] Urea nitrogen/Creatinine [Mass ratio] 8 mg/mg [facility] CHEM 7 (LYTES,BUN,CREA,GLUC) on 05-16-2022 Anion gap [Moles/Vol] 17 mmol/L 7 - 17 mmol/L [facility] Chloride [Moles/Vol] 106 mmol/L 98 - 10 8 mmol/L [facility] CO2 [Moles/Vol] 22 mmol/L 21 - 31 mmol/L [facility] Creatinine [Mass/Vol] 5.23 mg/dL High 0.70 - 1.30 mg/dL [facility] GFR/1.73 sq M.predicted CKD-EPI (S/P/Bld) [Vol rate/Area] 13 Low >=60 mL/min/1.73m 2 [facility] Comment on above: Reported eGFR is bas ed on the CKD-EPI 2021 equation using creatinine, age, and sex. Glucose [Mass/Vol] 116 mg/dL High 70 - 99 mg/dL [facility] Interpretation and review of laboratory results Abnormal [facility] Osmolality Calc [Osmolality] 305 [facility] Potassium [Moles/Vol] 4.6 mmol/L 3.5 - 5.0 mmol/L [facility] Sodium [Moles/Vol] 140 mmol/L 135 - 145 mmol/L [facility] Urea nitrogen [Mass/Vol] 42 mg/dL High 7 - 25 mg/dL [facility] Urea nitrogen/Creatinine [Mass ratio] 8 mg/mg [facility] EXTRA MICROon 05-16-2022 [facility] LT BLUE TOP TUBEon 2 [facility] LYTES (NA, K, CL) - URINE - RANDOMon 05-16-2022 Chloride (24H U) [Moles/Vol] 68 mmol/L [facility] Potassium (24H U) [Moles/Vol] 36.7 mmol/L [facility] Sodium (24H U) [Moles/Vol] 55 mmol/L [facility] The reference range has not been established for random urine specimens. The test result should be integrated into the clinical context for interpretation. [facility] MAGNESIUMon 05-16-2022 Interpretation and review of laboratory results Normal [facility] Magnesium [Mass/Vol] 1.7 mg/dL 1.6 - 2 .6 mg/dL [facility] NOVEL CORONAVIRUS PCROrdered By: Edson Candelario on 05-16-2022 SARS-CoV-2 (COVID-19) RNA ESTELITA+probe Ql (Unsp spec) Not detected NOT DETECTED [facility] Comment on above: [facility] Negative results do not [...] use authorization for use by authorized laboratories. [facility] No Panel Informationon 05-16 [facility] OSMOLALITY, URINEon 05-16-20 Interpretation and review of laboratory results Normal [facility] Osmolality (U) [Osmolality] 320 mosm/kg [facility] The reference range has not been established for random urine specimens. The test result should be integrated into the clinical context for interpretation. [facility] PROCALCITONINon 05-16-2022 Interpretation and review of laboratory results Normal [facility] Procalcitonin [Mass/Vol] 0.18 ng/mL <0.50 [facility] Comment on above: Procalcitonin is an [...] and trend procalcitonin in various clinical settings. [email or web address] Two common cutoffs associated with bacterial infections are as follows. Respiratory tract infections: >0.25 ng/mL Sepsis/septic shock: >0.5 ng/mL Procalcitonin should not be used alone as a diagnostic tool, however. All procalcitonin results should be interpreted in association with the patients clinical condition and all laboratory findings. [facility] PT,INR,PTTon 05-16-2022 aPTT Coag (PPP) [Time] 30.3 s [facility] INR Coag (Bld) [Relative time] 1.1 {INR} [facility] Interpretation and review of laboratory results Normal [facility] PT Coag (PPP) [[facility]] [facility] ([facility] RNA NA A+probe Ql (Unsp spec)Ordered By: Edson Candelario on 05-16-2022 Interpretation and review of laboratory results [facility] TACROLIMUS LEVEL, TROUGH (NM E DRUG LEVEL)Ordered By: Mariama Nick on 05-16-2022 Interpretation and review of laboratory results Normal [facility] Tacrolimus (Bld) [Mass/Vol] 4.1 ng/mL Bone Marrow Transplant: 4.0-12.0, Therapeutic: 5.0-15.0 [facility] Method performed is a chemiluminescent microparticle immunoasssay on the [employer] Salt Washer i2000. The range is based on experience at [facility] and users should be aware that target concentrations vary widely depending on concomitant therapy, time post-transplant, and desired degree of immunosuppression. [facility] URINE PROTEIN/CREA RATIO, RA NDOMon 05-16-2022 Creatinine (24H U) [Mass/Vol] 59.82 mg/dL [facility] Protein Unsp time (U) [Mass/Vol] 111 mg/dL [facility] Protein/Creatinine (U) [Mass ratio] 1.856 mg/g [facility] US for transplanted kidney [...] appearing vascular flow in the transplant kidney. [facility] Radiology Study observation (narrative) [facility] US for transplanted kidney l imitedOrdered By: Rosendo Matute on 05-16-2022 [facility] Work Phone: CBC AND ELECTRONIC DIFFon Basophils (Bld) [#/Vol] 10*3/uL 0.00 - 0.09 K/uL [facility] Basophils/100 WBC (Bld) 0.2 % [facility] Differential cell count method Nom (Bld) Electronic Differential [facility] Eosinophils (Bld) [#/Vol] 10*3/uL 0.00 - 0.48 K/uL [facility] Eosinophils/100 WBC (Bld) 0.0 % [facility] Erythrocyte distribution width (RBC) [Ratio] 12.8 % 10.9 - 14.3 % [facility] Hematocrit (Bld) [Volume fraction] 46.0 % 39.6 - 48.8 % [facility] Hemoglobin (Bld) [Mass/Vol] 14.6 g/dL 13.4 - 16.8 g/dL [facility] Immature granulocytes (Bld) [#/Vol] 0.07 10*3/uL <=0.08 [facility] Immature granulocytes/100 WBC (Bld) 0.4 % [facility] Interpretation and review of laboratory results Abnormal [facility] Lymphocytes (Bld) [#/Vol] 1.49 10*3/uL 0.83 - 3.57 K/uL [facility] Lymphocytes/100 WBC (Bld) 9.4 % [facility] MCH (RBC) [Entitic mass] 28.2 pg 26.1 - 33.3 pg [facility] MCHC (RBC) [Mass/Vol] 31.7 g/dL Low 31.9 - 36.5 g/dL [facility] MCV (RBC) [Entitic vol] 89.0 fL 79.0 - 94.5 fL [facility] Monocytes (Bld) [#/Vol] 1.45 10*3/uL High 0.24 - 0.93 K/uL [facility] Monocytes/100 WBC (Bld) 9.2 % [facility] Neutrophils (Bld) [#/Vol] 12.77 10*3/uL High 1.57 - 6.19 K/uL [facility] Nucleated RBC/100 WBC (Bld) [Ratio] 0.0 % <=0.2 /100 WBC [facility] Platelet mean volume (Bld) [Entitic vol] 9.9 fL 8.7 - 12.3 fL [facility] Platelets (Bld) [#/Vol] 250 10*3/uL 146 - 337 K/uL [facility] RBC (Bld) [#/Vol] 5.17 10*6/uL [facility] Segmented neutrophils/100 WBC (Bld) 80.8 % [facility] WBC (Bld) [#/Vol] 15.81 10*3/uL High 3.73 - 10 .10 K/uL [facility] CBC AUTO DIFFon 05-15-2022 BASO # 0.0 103/ul Normal 0.0-0.1 [facility] Comment on above: Performed By: #### C BC #### [facility] [address] [place] [address] Dr. Dwight Waters Basophils/100 WBC (Bld) 0.3 % Normal 0.2-2.0 [facility] Comment on above: Performed By: #### C BC #### [facility] [address] [place] [address] Dr. Dwight Waters EO # 0.1 103/ul Normal 0.0-0.7 [facility] Comment on above: Performed By: #### C BC #### [facility] [address] [place] [address] Dr. Dwight Waters Eosinophils/100 WBC (Bld) 0.8 % Critically low 0.9-7.0 [facility] Comment on above: Performed By: #### C BC #### [facility] [address] [place] [address] Dr. Dwight Waters Erythrocyte distribution width (RBC) [Ratio] 12.7 % Normal 11.0-15.0 [facility] Comment on above: Performed By: #### C BC #### [facility] [address] [place] [address] Dr. Dwight Waters Hematocrit (Bld) [Volume fraction] 43.5 % Normal 42.0-54.0 [facility] Comment on above: Performed By: #### C BC #### [facility] [address] [place] [address] Dr. Dwight Waters Hemoglobin (Bld) [Mass/Vol] 14.4 g/dL Normal 14.0-18.0 [facility] Comment on above: Performed By: #### C BC #### [facility] [address] [place] [address] Dr. Dwight Waters IG # 0.02 10e3/ul Normal 0.00-0.03 [facility] Comment on above: Performed By: #### C BC #### [facility] [address] [place] [address] Dr. Dwight Waters IG % 0.2 % Normal 0.0-0.5 [facility] Comment on above: Performed By: #### C BC #### [facility] [address] [place] [address] Dr. Dwight Waters LYMPH # 1.5 103/ul Normal 1.2-3.8 [facility] Comment on above: Performed By: #### C BC #### [facility] [address] [place] [address] Dr. Dwight Waters Lymphocytes/100 WBC (Bld) 12.5 % Critically low 20.5-60.0 [facility] Comment on above: Performed By: #### C BC #### [facility] [address] [place] [address] Dr. Dwight Waters MANUAL DIFF REQ NO Normal [facility] Comment on above: Performed By: #### C BC #### [facility] [address] [place] [address] Dr. Dwight Waters MCH (RBC) [Entitic mass] 28.6 pg Normal 25.9-34.0 [facility] Comment on above: Performed By: #### C BC #### [facility] [address] [place] [address] Dr. Dwight Waters MCHC (RBC) [Mass/Vol] 33.1 g/dL Normal 29.9-35.2 [facility] Comment on above: Performed By: #### C BC #### [facility] [address] [place] [address] Dr. Dwight Waters MCV (RBC) [Entitic vol] 86.3 fL Normal 80.0-94.0 [facility] Comment on above: Performed By: #### C BC #### [facility] [address] [place] [address] Dr. Dwight Waters MONO # 1.0 103/ul Critically high 0.3-0.8 [facility] Comment on above: Performed By: #### C BC #### [facility] [address] [place] [address] Dr. Dwight Waters Monocytes/100 WBC (Bld) 8.2 % Normal 1.7-12.0 [facility] Comment on above: Performed By: #### C BC #### [facility] [address] [address] [address] Dwight Waters NEUT # 9.1 103/ul Critically high 1.4-6.5 [facility] Comment on above: Performed By: #### C BC #### [facility] [address] [address] [address] Dwight Waters Neutrophils/100 WBC (Bld) 78.0 % Critically high 43.0-75.0 [facility] Comment on above: Performed By: #### C BC #### [facility] [address] [place] [address] Dr. Dwight Waters Platelet mean volume (Bld) [Entitic vol] 9.8 fL Normal 9.5-13.5 [facility] Comment on above: Performed By: #### C BC #### [facility] [address] [place] [address] Dr. Dwight Waters PLT 251 103/ul Normal 150-450 [facility] Comment on above: Performed By: #### C BC #### [facility] [address] [place] [address] Dr. Dwight Waters RBC 5.04 106/ul Normal 4.70-6.10 [facility] Comment on above: Performed By: #### C BC #### [facility] [address] [place] [address] Dr. Dwight Waters WBC 11.6 103/ul Critically high 4.0-11.0 [facility] Comment on above: Performed By: #### C BC #### [facility] [address] [place] [address] Dr. Dwight Waters CHEM 6 (LYTES, BUN CREA)on 0 05-15-2022 Anion gap [Moles/Vol] 12 mmol/L 7 - 17 mmol/L [facility] Chloride [Moles/Vol] 105 mmol/L 98 - 10 8 mmol/L [facility] CO2 [Moles/Vol] 26 mmol/L 21 - 31 mmol/L [facility] Creatinine [Mass/Vol] 2.85 mg/dL High 0.70 - 1.30 mg/dL [facility] GFR/1.73 sq M.predicted CKD-EPI (S/P/Bld) [Vol rate/Area] 26 Low >=60 mL/min/1.73m 2 [facility] Comment on above: Reported eGFR is bas ed on the CKD-EPI 2020 equation using creatinine, age, and sex. Potassium [Moles/Vol] 4.6 mmol/L 3.5 - 5.0 mmol/L [facility] Sodium [Moles/Vol] 138 mmol/L 135 - 145 mmol/L [facility] Urea nitrogen [Mass/Vol] 32 mg/dL High 7 - 25 mg/dL [facility] Urea nitrogen/Creatinine [Mass ratio] 11 mg/mg [facility] CT ABD/PELVIS WO CONon 05-15 CT [...] transplanted kidney with moderate right-sided hydronephrosis. Atrophic [place] kidneys with moderate right-sided hydronephrosis. Multiple nonobstructive [...] transplanted kidney with moderate right-sided hydronephrosis. Atrophic [place] kidneys with moderate right-sided hydronephrosis. Multiple nonobstructive right renal calculi measuring up to 8 mm. FOLLOW-UP: Follow-up as clinically indicated. Electronically authenticated by: LYNDSAY JEAN Date: 2022-05-15 05:04 Normal [facility] Covid-19 PCR (CVDTB)on 04-30 SARS-CoV-2 (COVID-19) RNA ESTELITA+probe Ql (Unsp spec) Not detected Normal NOT DETECTED [facility] Comment on above: Result Comment: When [...] for this test is supported by the [place] [employer]'s declaration that [...] used). Performed By: #### U RTPCR #### [facility] [address] [place] [address] Dr. Dwight Waters GLUCOSEon 05-15-2022 Glucose [Mass/Vol] 141 mg/dL High 70 - 99 mg/dL [facility] GOLD TOP TUBEon 05-15-2022 [facility] HEPATIC FUNCTION PANELon Albumin [Mass/Vol] 4.3 g/dL 3.5 - 5.0 g/dL [facility] ALP [Catalytic activity/Vol] 85 U/L 32 - 126 U/L [facility] ALT [Catalytic activity/Vol] 13 U/L 10 - 52 U/L [facility] AST [Catalytic activity/Vol] 15 U/L 10 - 39 U/L [facility] Bilirubin [Mass/Vol] 0.8 mg/dL <1.5 [facility] Bilirubin.direct [Mass/Vol] 0.2 mg/dL <0.3 [facility] Interpretation and review of laboratory results Normal [facility] Protein [Mass/Vol] 7.3 g/dL 6.4 - 8.3 g/dL [facility] LIPASEon 05-15-2022 Lipase [Catalytic activity/Vol] 8 U/L Low 11 - 82 U/L [facility] No Panel Informationon 05-15 Interpretation and review of laboratory results Abnormal [facility] PROF 14(COMP METB)on 022 Albumin [Mass/Vol] 3.8 g/dL Normal 3.4-5.0 [facility] Comment on above: Performed By: #### U RTPCR #### [facility] [address] [place] [address] Dr. Dwight Waters Albumin/Globulin [Mass ratio] 1.1 {ratio} Normal [facility] Comment on above: Performed By: #### U RTPCR #### [facility] [address] [place] [address] Dr. Dwight Waetrs ALP [Catalytic activity/Vol] 92 U/L Normal 46-116 [facility] Comment on above: Performed By: #### U RTPCR #### [facility] [address] [place] [address] Dr. Dwight Waters ALT [Catalytic activity/Vol] 25 U/L Normal 16-63 [facility] Comment on above: Performed By: #### U RTPCR #### [facility] [address] [address] [address] Dwight Waters Anion gap [Moles/Vol] 14.6 mmol/L Normal [facility] Comment on above: Performed By: #### U RTPCR #### [facility] [address] [place] [address] Dr. Dwight Waters AST [Catalytic activity/Vol] 17 U/L Normal 15-37 [facility] Comment on above: Performed By: #### U RTPCR #### [facility] [address] [address] [address] Dwight Waters Bilirubin [Mass/Vol] 0.6 mg/dL Normal 0.2-1.0 [facility] Comment on above: Performed By: #### U RTPCR #### [facility] [address] [address] [address] Dwight Waters Calcium [Mass/Vol] 9.9 mg/dL Normal 8.5-10.1 [facility] Comment on above: Performed By: #### U RTPCR #### [facility] [address] [address] [address] Dwight Waters Chloride [Moles/Vol] 106 mmol/L Normal 98-107 [facility] Comment on above: Performed By: #### U RTPCR #### [facility] [address] [place] [address] Dr. Dwight Waters CO2 [Moles/Vol] 24.2 mmol/L Normal 21.0-32.0 [facility] Comment on above: Performed By: #### U RTPCR #### [facility] [address] [address] [address] Dwight Waters Creatinine [Mass/Vol] 1.58 mg/dL Critically high 0.70-1.30 [facility] Comment on above: Performed By: #### U RTPCR #### [facility] [address] [address] [address] Dwight Waters EGFR-AF GRENADIAN 56 mL/min/1.73m2 Critically low >=60 [facility] Comment on above: Performed By: #### U RTPCR #### [facility] [address] [address] [address] Dwight Watesr EGFR-NON AF GRENADIAN 46 mL/min/1.73m2 Critically low >=60 [facility] Comment on above: Performed By: #### U RTPCR #### [facility] [address] [address] [address] Dwight Waters Globulin (S) [Mass/Vol] 3.5 g/dL Normal [facility] Comment on above: Performed By: #### U RTPCR #### [facility] [address] [address] [address] Dwight Waters Glucose [Mass/Vol] 162 mg/dL Critically high 74-106 [facility] Comment on above: Performed By: #### U RTPCR #### [facility] [address] [address] [address] Dwight Waters Potassium [Moles/Vol] 3.8 mmol/L Normal 3.5-5.1 [facility] Comment on above: Performed By: #### U RTPCR #### [facility] [address] [address] [address] Dwight Waters Protein [Mass/Vol] 7.3 g/dL Normal 6.4-8.2 [facility] Comment on above: Performed By: #### U RTPCR #### [facility] [address] [place] [address] Dr. Dwight Waters Sodium [Moles/Vol] 141 mmol/L Normal 136-145 [facility] Comment on above: Performed By: #### U RTPCR #### [facility] [address] [address] [address] Dwight Waters Urea nitrogen [Mass/Vol] 22.0 mg/dL Critically high 7.0-18.0 [facility] Comment on above: Performed By: #### U RTPCR #### [facility] [address] [address] [address] Dwight Waters Urea nitrogen/Creatinine [Mass ratio] 13.9 mg/mg Normal [facility] Comment on above: Performed By: #### U RTPCR #### [facility] [address] [address] [address] Dwight Waters Portable XR Chest Viewson [...] chest. IMPRESSION IMPRESSION: No acute cardiopulmonary disease [facility] Radiology Study observation (narrative) [facility] Portable XR Chest ViewsOrder ed By: Vladislav Omer on 05-15-2022 [facility] URINE DIPSTICK; REFLEX MICRO SCOPY; REFLEX CULTURE PERFORMABLEon 05-15-2022 Appearance (U) Clear Clear [facility] Color (U) Yellow Yellow [facility] Glucose Test strip (U) [Mass/Vol] 100 mg/dL Abnormal Negative [facility] Interpretation and review of laboratory results Abnormal [facility] Ketones (U) [Mass/Vol] Negative Negative [facility] Leukocyte esterase Test strip Ql (U) Large Abnormal Negative [facility] Nitrite Ql (U) Negative Negative [facility] pH (U) 6.0 [pH] 5.0 - 7.0 [facility] Protein (U) [Mass/Vol] 100 mg/dL Abnormal Negative [facility] RBC (U) [#/Vol] Large Abnormal Negative [facility] Specific gravity (U) [Rel density] 1.010 [facility] Urobilinogen (U) [Mass/Vol] 0.2 E.U./dL 0.2 E.U/dL, 1.0 E.U/dL [facility] URINE MICROSCOPIC WITH REFLE X TO CULTUREOrdered By: Rey Bro on 05-15-2022 Bacteria LM Ql (Urine sed) ABSENT ABSENT [facility] Epithelial cells.squamous LM Ql (Urine sed) ABSENT 1/hpf = 1+, 2-5/hpf = 2+, 0/hpf = 0+, ABSENT [facility] Interpretation and review of laboratory results Abnormal [facility] RBC LM.HPF (Urine sed) [#/Area] /[HPF] Abnormal 0 - 2 /HPF [facility] WBC LM.HPF (Urine sed) [#/Area] 10-20 Abnormal 0 - 5 /HPF [facility] CT ABD/PELVIS WO CONon 05-12 CT ABD/PELVIS WO CON Begin Addendum #[address] Lund 3:25 PM EST 05/11/2022. Begin Addendum #2 IMPRESSION below should also contain the followin. 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 The [place] kidneys are progressively atrophic bilaterally compared to [...] of 06/14/2020 are no longer present. The [place] distal right ureter is decompressed beyond this [...] with surgical history for renal graft and [place] right urinary drainage, as a discrete ureteroneocystostomy is not identified, and the graft may be draining via a ureteroureterostomy. Urology consultation recommended. 3. The [place] kidneys are bilaterally atrophic, with right renal sinus calcifications consistent with nonobstructing right [place] renal calculi up to 6 mm. Normal [facility] CBC AUTO DIFFon 05-11-2022 BASO # 0.1 103/ul Normal 0.0-0.1 [facility] Comment on above: Performed By: #### U RTPCR #### [facility] [address] [address] [address] Dwight Waters Basophils/100 WBC (Bld) 0.8 % Normal 0.2-2.0 [facility] Comment on above: Performed By: #### U RTPCR #### [facility] [address] [address] [address] Dwight Waters EO # 0.2 103/ul Normal 0.0-0.7 [facility] Comment on above: Performed By: #### U RTPCR #### [facility] [address] [place] [address] Dr. Dwight Waters Eosinophils/100 WBC (Bld) 2.5 % Normal 0.9-7.0 [facility] Comment on above: Performed By: #### U RTPCR #### [facility] [address] [place] [address] Dr. Dwight Waters Erythrocyte distribution width (RBC) [Ratio] 12.5 % Normal 11.0-15.0 [facility] Comment on above: Performed By: #### U RTPCR #### [facility] [address] [place] [address] Dr. Dwight Waters Hematocrit (Bld) [Volume fraction] 48.3 % Normal 42.0-54.0 [facility] Comment on above: Performed By: #### U RTPCR #### [facility] [address] [place] [address] Dr. Dwight Waters Hemoglobin (Bld) [Mass/Vol] 15.3 g/dL Normal 14.0-18.0 [facility] Comment on above: Performed By: #### U RTPCR #### [facility] [address] [place] [address] Dr. Dwight Waters IG # 0.01 10e3/ul Normal 0.00-0.03 [facility] Comment on above: Performed By: #### U RTPCR #### [facility] [address] [place] [address] Dr. Dwight Waters IG % 0.2 % Normal 0.0-0.5 [facility] Comment on above: Performed By: #### U RTPCR #### [facility] [address] [place] [address] Dr. Dwight Waters LYMPH # 1.9 103/ul Normal 1.2-3.8 [facility] Comment on above: Performed By: #### U RTPCR #### [facility] [address] [place] [address] Dr. Dwight Waters Lymphocytes/100 WBC (Bld) 29.8 % Normal 20.5-60.0 [facility] Comment on above: Performed By: #### U RTPCR #### [facility] [address] [place] [address] Dr. Dwight Waters MANUAL DIFF REQ NO Normal [facility] Comment on above: Performed By: #### U RTPCR #### [facility] [address] [place] [address] Dr. Dwight Waters MCH (RBC) [Entitic mass] 28.2 pg Normal 25.9-34.0 [facility] Comment on above: Performed By: #### U RTPCR #### [facility] [address] [place] [address] Dr. Dwight Waters MCHC (RBC) [Mass/Vol] 31.7 g/dL Normal 29.9-35.2 [facility] Comment on above: Performed By: #### U RTPCR #### [facility] [address] [place] [address] Dr. Dwight Waters MCV (RBC) [Entitic vol] 89.1 fL Normal 80.0-94.0 [facility] Comment on above: Performed By: #### U RTPCR #### [facility] [address] [place] [address] Dr. Dwight Waters MONO # 0.6 103/ul Normal 0.3-0.8 [facility] Comment on above: Performed By: #### U RTPCR #### [facility] [address] [place] [address] Dr. Dwight Waters Monocytes/100 WBC (Bld) 9.0 % Normal 1.7-12.0 [facility] Comment on above: Performed By: #### U RTPCR #### [facility] [address] [place] [address] Dr. Dwight Waters NEUT # 3.6 103/ul Normal 1.4-6.5 [facility] Comment on above: Performed By: #### U RTPCR #### [facility] [address] [place] [address] Dr. Dwight Waters Neutrophils/100 WBC (Bld) 57.7 % Normal 43.0-75.0 [facility] Comment on above: Performed By: #### U RTPCR #### [facility] [address] [place] [address] Dr. Dwight Waters Platelet mean volume (Bld) [Entitic vol] 9.9 fL Normal 9.5-13.5 [facility] Comment on above: Performed By: #### U RTPCR #### [facility] [address] [place] [address] Dr. Dwight Waters PLT 249 103/ul Normal 150-450 [facility] Comment on above: Performed By: #### U RTPCR #### [facility] [address] [place] [address] Dr. Dwight Waters RBC 5.42 106/ul Normal 4.70-6.10 [facility] Comment on above: Performed By: #### U RTPCR #### [facility] [address] [place] [address] Dr. Dwight Waters WBC 6.3 103/ul Normal 4.0-11.0 [facility] Comment on above: Performed By: #### U RTPCR #### [facility] [address] [place] [address] Dr. Dwight Waters ER URINE PROFILEon 2 Bilirubin Ql (U) Unable to perform te sting due to color interference. Abnormal NEGATIVE [facility] Comment on above: Performed By: #### U RTPCR #### [facility] [address] [place] [address] Dr. Dwight Waters Clarity (U) TURBID Abnormal CLEAR [facility] Comment on above: Performed By: #### U RTPCR #### [facility] [address] [place] [address] Dr. Dwight Waters Color (U) RED Abnormal YELLOW [facility] Comment on above: Performed By: #### U RTPCR #### [facility] [address] [place] [address] Dr. Dwight SHARMA A micrscopic examina tion will be performed if indicated. Normal [facility] Comment on above: Performed By: #### U RTPCR #### [facility] [address] [place] [address] Dr. Dwight Waters Glucose Ql (U) Unable to perform te sting due to color interference. Abnormal NEGATIVE [facility] Comment on above: Performed By: #### U RTPCR #### [facility] [address] [place] [address] Dr. Dwight Waters Hemoglobin Ql (U) Unable to perform te sting due to color interference. Abnormal NEGATIVE [facility] Comment on above: Performed By: #### U RTPCR #### [facility] [address] [place] [address] Dr. Dwight Waters Ketones Ql (U) Unable to perform te sting due to color interference. Abnormal NEGATIVE [facility] Comment on above: Performed By: #### U RTPCR #### [facility] [address] [place] [address] Dr. Dwight Waters LEUKOCYTES Unable to perform te sting due to color interference. Abnormal NEGATIVE [facility] Comment on above: Performed By: #### U RTPCR #### [facility] [address] [place] [address] Dr. Dwight Waters Nitrite Ql (U) Unable to perform te sting due to color interference. Abnormal NEGATIVE [facility] Comment on above: Performed By: #### U RTPCR #### [facility] [address] [place] [address] Dr. Dwight Waters pH (U) 6.5 [pH] Normal 5-9 [facility] Comment on above: Performed By: #### U RTPCR #### [facility] [address] [place] [address] Dr. Dwight Waters SPEC GRAVITY 1.020 Normal 1.005-<=1.02 5 [facility] Comment on above: Performed By: #### U RTPCR #### [facility] [address] [place] [address] Dr. Dwight Waters UA PROTEIN Unable to perform te sting due to color interference. Normal NEGATIVE/ TRACE [facility] Comment on above: Performed By: #### U RTPCR #### [facility] [address] [place] [address] Dr. Dwight Waters UR MICRO IND INDICATED Normal [facility] Comment on above: Performed By: #### U RTPCR #### [facility] [address] [place] [address] Dr. Dwight Waters UROBILINOGEN Unable to perform te sting due to color interference. Normal 0.2 - 1.0 [facility] Comment on above: Performed By: #### U RTPCR #### [facility] [address] [place] [address] Dr. Dwight Waters PROF 14(COMP METB)on 022 Albumin [Mass/Vol] 3.8 g/dL Normal 3.4-5.0 [facility] Comment on above: Performed By: #### C MP #### [facility] [address] [place] [address] Dr. Dwight Waters Albumin/Globulin [Mass ratio] 1.1 {ratio} Normal [facility] Comment on above: Performed By: #### C MP #### [facility] [address] [place] [address] Dr. Dwight Waters ALP [Catalytic activity/Vol] 106 U/L Normal 46-116 [facility] Comment on above: Performed By: #### C MP #### [facility] [address] [place] [address] Dr. Dwight Waters ALT [Catalytic activity/Vol] 30 U/L Normal 16-63 [facility] Comment on above: Performed By: #### C MP #### [facility] [facility] [address] [place] [address] Dr. Dwight Waters Anion gap [Moles/Vol] 11.7 mmol/L Normal [facility] Comment on above: Performed By: #### C MP #### [facility] [address] [place] [address] Dr. Dwight Waters AST [Catalytic activity/Vol] 16 U/L Normal 15-37 [facility] Comment on above: Performed By: #### C MP #### [facility] [address] [address] [address] Dwight Waters Bilirubin [Mass/Vol] 0.6 mg/dL Normal 0.2-1.0 [facility] Comment on above: Performed By: #### C MP #### [facility] [address] [address] [address] Dwight Waters Calcium [Mass/Vol] 9.1 mg/dL Normal 8.5-10.1 [facility] Comment on above: Performed By: #### C MP #### [facility] [address] [address] [address] Dwight Waters CO2 [Moles/Vol] 27.4 mmol/L Normal 21.0-32.0 [facility] Comment on above: Performed By: #### C MP #### [facility] [address] [place] [address] Dr. Dwight Waters Creatinine [Mass/Vol] 1.18 mg/dL Normal 0.70-1.30 [facility] Comment on above: Performed By: #### C MP #### [facility] [address] [address] [address] Dwight Waters EGFR-AF GRENADIAN >60 Normal >=60 [facility] Comment on above: Performed By: #### C MP #### [facility] [address] [place] [address] Dr. Dwight Waters EGFR-NON AF GRENADIAN >60 Normal >=60 [facility] Comment on above: Performed By: #### C MP #### [facility] [address] [place] [address] Dr. Dwight Waters Globulin (S) [Mass/Vol] 3.6 g/dL Normal [facility] Comment on above: Performed By: #### C MP #### [facility] [address] [place] [address] Dr. Dwight Waters Glucose [Mass/Vol] 192 mg/dL Critically high 74-106 [facility] Comment on above: Performed By: #### C MP #### [facility] [address] [place] [address] Dr. Dwight Waters Potassium [Moles/Vol] 4.1 mmol/L Normal 3.5-5.1 [facility] Comment on above: Performed By: #### C MP #### [facility] [address] [place] [address] Dr. Dwight Waters Protein [Mass/Vol] 7.4 g/dL Normal 6.4-8.2 [facility] Comment on above: Performed By: #### C MP #### [facility] [address] [place] [address] Dr. Dwight Waters Sodium [Moles/Vol] 142 mmol/L Normal 136-145 [facility] Comment on above: Performed By: #### C MP #### [facility] [address] [place] [address] Dr. Dwight Waters Urea nitrogen [Mass/Vol] 17.0 mg/dL Normal 7.0-18.0 [facility] Comment on above: Performed By: #### C MP #### [facility] [address] [place] [address] Dr. Dwight Waters Urea nitrogen/Creatinine [Mass ratio] 14.4 mg/mg Normal [facility] Comment on above: Performed By: #### C MP #### [facility] [address] [place] [address] Dr. Dwight Waters URINE MICROSCOPIC ONLYon BACTERIA NONE SEEN Normal NONE SEEN [facility] Comment on above: Performed By: #### U RTPCR #### [facility] [address] [place] [address] Dr. Dwight Waters Bacteria identified Cx Nom (U) NOT INDICATED Normal [facility] Comment on above: Performed By: #### U RTPCR #### [facility] [address] [place] [address] Dr. Dwight Waters CAST NONE SEEN Normal NONE SEEN [facility] Comment on above: Performed By: #### U RTPCR #### [facility] [address] [place] [address] Dr. Dwight Waters Crystals LM Nom (Urine sed) NONE SEEN Normal NONE SEEN [facility] Comment on above: Performed By: #### U RTPCR #### [facility] [address] [address] [address] Dwight Waters Epithelial cells LM Ql (Urine sed) RARE Normal NONE SEEN /RARE [facility] Comment on above: Performed By: #### U RTPCR #### [facility] [address] [place] [address] Dr. Dwight Waters MUCOUS NONE SEEN Normal NONE SEEN [facility] Comment on above: Performed By: #### U RTPCR #### [facility] [address] [address] [address] Dwight Waters RBC (U) [#/Vol] /uL Abnormal 0-2 [facility] Comment on above: Performed By: #### U RTPCR #### [facility] [address] [place] [address] Dr. Dwight Waters WBC NONE SEEN Normal NONE SEEN [facility] Comment on above: Performed By: #### U RTPCR #### [facility] [address] [place] [address] Dr. Dwight Waters K (Potassium)on 01-06-2020 Potassium [Moles/Vol] 4.4 mmol/L Normal 3.7-5.3 [facility] Comment on above: Performed By: #### K #### [facility] [address] [place] [address] International Logistics Manager: Kehinde Woodward MD Potassiumon 01-06-2020 Potassium [Moles/Vol] 4.4 mmol/L 3.7 - 5.3 mmol/L [facility] Work Phone: Hemoglobin and Hematocrit, B loodon 10-24-2019 Hematocrit (Bld) [Volume fraction] 23.6 % Low 40.7 - 50.3 % [place] Hemoglobin (Bld) [Mass/Vol] 7.3 g/dL Low 13 - 17 g/dL [place] Interpretation and review of laboratory results Abnormal [place] Hgb/Hcton 10-24-2019 Hematocrit (Bld) [Volume fraction] 23.6 % Low 40.7-50.3 [facility] Comment on above: Performed By: #### H H #### [facility] [address] [place] [address] International Logistics Manager: Kehinde Woodward MD Hemoglobin (Bld) [Mass/Vol] 7.3 g/dL Low 13.0-17.0 [facility] Comment on above: Performed By: #### H H #### [facility] [address] [place] [address] International Logistics Manager: Kehinde Woodward MD Hemoglobinon 08-27-2019 Hemoglobin (Bld) [Mass/Vol] 7.5 g/dL Low 13.0-17.0 [facility] Comment on above: Performed By: #### H GB #### [facility] [address] [place] [address] International Logistics Manager: Kehinde Woodward MD Hemoglobin (Bld) [Mass/Vol] 7.5 g/dL Low 13 - 17 g/dL [place] Interpretation and review of laboratory results Abnormal [place] Hemoglobinon 08-08-2019 Hemoglobin (Bld) [Mass/Vol] 8.3 g/dL Low 13.0-17.0 [facility] Comment on above: Performed By: #### H GB #### [facility] [address] [place] [address] International Logistics Manager: Kehinde Woodward MD Hemoglobin (Bld) [Mass/Vol] 8.3 g/dL Low 13 - 17 g/dL [place] Interpretation and review of laboratory results Abnormal [place] Hemoglobinon 08-04-2019 Hemoglobin (Bld) [Mass/Vol] 8.0 g/dL Low 13.0-17.0 [facility] Comment on above: Performed By: #### H GB #### [facility] [address] [place] [address] International Logistics Manager: Kehinde Woodward MD Hemoglobin A1Con 08-03-2019 HbA1c (Bld) [Mass fraction] % Low 4.8-5.9 [facility] Comment on above: Result Comment: The ADA and AACC recommend providing the estimated average glucose result to permit better patient understanding of their HBA1c result. Performed By: #### G LYHGB #### [facility] [address] [place] [address] International Logistics Manager: Kehinde Woodward MD Glucose [Mass/Vol] mg/dL mg/dL [place] Comment on above: The ADA and AACC rec ommend providing the estimated average glucose result to permit better patient understanding of their HBA1c result. HbA1c (Bld) [Mass fraction] % Low 4.8 - 5.9 % [place] Interpretation and review of laboratory results Abnormal [place] Hemoglobinon 08-01-2019 Hemoglobin (Bld) [Mass/Vol] 8.1 g/dL Low 13.0-17.0 [facility] Comment on above: Performed By: #### H GB #### [facility] [address] [place] [address] International Logistics Manager: Kehinde Woodward MD Hemoglobin (Bld) [Mass/Vol] 8.1 g/dL Low 13 - 17 g/dL [place] Interpretation and review of laboratory results Abnormal [place] Hgb/Hcton 06-10-2019 Hematocrit (Bld) [Volume fraction] 24.3 % Low 40.7-50.3 [facility] Comment on above: Performed By: #### H H #### [facility] [address] [place] [address] International Logistics Manager: Kehinde Woodward MD Hemoglobin (Bld) [Mass/Vol] 7.4 g/dL Low 13.0-17.0 [facility] Comment on above: Performed By: #### H H #### [facility] [address] [place] [address] International Logistics Manager: Kehinde Woodward MD Hemoglobinon 06-01-2019 Hemoglobin (Bld) [Mass/Vol] 7.2 g/dL Low 13.0-17.0 [facility] Comment on above: Performed By: #### H GB #### [facility] [address] [place], [place] [id number] International Logistics Manager: Kehinde Woodward MD K (Potassium)on 01-14-2019 Potassium [Moles/Vol] 3.6 mmol/L Low 3.7-5.3 [facility] Comment on above: Performed By: #### K #### [facility] [address] [place] [address] International Logistics Manager: Kehinde Woodward MD Otheron 10-19-2018 IMPRESSION: [...] by Toxicology Laboratory at [facility]. It has not been cleared or approved [...] Amitriptyline(50), Amphetamine(250), Atenolol(500), Barbiturates(1000), Benzoylecgonine(50), Buprenorphine(50), Bupropion(25), Caffeine(51782), Chlordiazepoxide(50), Chlorpheniramine(100), Chlorpromazine(50), Citalopram(100), Clonazepam(200), Cocaine(25), Codeine(200), [...] MISSY, [facility] TOXICOLOGY SCREEN URINE - UD [facility] 10-12-2018 Drugs identified Screen Nom (U) For Medical Purposes Only, Non-forensic, screen results are presumptive. No confirmatory testing will follow. Invalid Interpretation Code LAB, [facility] Comment on above: This Liquid Chromato graphy Mass Spectrometry (LC/MS/MS) test was developed and its performance characteristics determined by Toxicology Laboratory at [facility]. It has not been cleared or approved [...] Amitriptyline(50), Amphetamine(250), Atenolol(500), Barbiturates(200), Benzoylecgonine(50), Buprenorphine(500), Bupropion(25), Caffeine(07225), Cannabinoids(THC)(50), Chlordiazepoxide(50), Chlorpheniramine(100), Chlorpromazine(50), Citalopram(100), Clonazepam(200), Cocaine(25), [...] 56 mm[Hg] Candie Almaguer MD Work Phone: [facility] 02-26-2024 09:07-0400 Heart rate 65 /min Candie Almaguer MD Work Phone: [facility] 02-26-2024 09:07-0400 Systolic blood pressure 113 mm[Hg] Candie Almaguer MD Work Phone: [facility] 02-26-2024 09:06-0400 Body height 170.2 cm Candie Almaguer MD Work Phone: [facility] 02-26-2024 09:06-0400 Body mass index (BMI) [Ratio] 28.9 kg/m2 Candie Almaguer MD Work Phone: [facility] 02-26-2024 09:06-0400 Body weight 83.69 kg Candie Alamguer MD Work Phone: [facility] 02-26-2024 09:06-0400 Respiratory rate 20 /min Candie Almaguer MD Work Phone: [facility] 02-26-2024 09:06-0400 SaO2% (BldA) [Mass fraction] 97 % Candie Almaguer MD Work Phone: [facility] 01-23-2024 15:04-0500 Body temperature 97.9 [degF] Kevin Prince MD Work Phone: [facility] 01-23-2024 15:04-0500 Diastolic blood pressure 67 mm[Hg] Kevin Prince MD Work Phone: [facility] 01-23-2024 15:04-0500 Heart rate 51 /min Kevin Prince MD Work Phone: [facility] 01-23-2024 15:04-0500 Respiratory rate 16 /min Kevin Prince MD Work Phone: [facility] 01-23-2024 15:04-0500 SaO2% (BldA) [Mass fraction] 94 % Kevin Prince MD Work Phone: [facility] 01-23-2024 15:04-0500 Systolic blood pressure 151 mm[Hg] Kevin Prince MD Work Phone: [facility] 01-23-2024 10:46-0500 Body mass index (BMI) [Ratio] 30.94 kg/m2 Kevin Prince MD Work Phone: [facility] 01-23-2024 10:46-0500 Body weight 89.6 kg Kevin Prince MD Work Phone: [facility] 01-18-2024 11:21-0500 Body height 170.2 cm Kevin Prince MD Work Phone: [facility] 01-06-2024 09:04-0500 Body height 170.2 cm Zuly Bruno NP Work Phone: [facility] 01-06-2024 09:04-0500 Body mass index (BMI) [Ratio] 32.42 kg/m2 Zuly Bruno NP Work Phone: [facility] 01-06-2024 09:04-0500 Body temperature 97.81 [degF] Zulytray Tanner[employer]z [employer]IN[employer] DEVELOPER Work Phone: [facility] 01-06-2024 09:04-0500 Body weight 93.89 kg Zulytray Tannerholz [employer]IN[employer] DEVELOPER Work Phone: [facility] 01-06-2024 09:04-0500 Diastolic blood pressure 70 mm[Hg] Zuly Brianholz [employer] MAINFRAME DEVELOPER Work Phone: [facility] 01-06-2024 09:04-0500 Heart rate 95 /min Zuly Kristopherhholz [employer] MAINFRAME DEVELOPER Work Phone: [facility] 01-06-2024 09:04-0500 Respiratory rate 17 /min Zuly Brianholz [employer] MAINFRAME DEVELOPER Work Phone: [facility] 01-06-2024 09:04-0500 SaO2% (BldA) [Mass fraction] 99 % Zuly Brianholz [employer] MAINFRAME DEVELOPER Work Phone: [facility] 01-06-2024 09:04-0500 Systolic blood pressure 138 mm[Hg] Zuly Kristopherhholz [employer] MAINFRAME DEVELOPER Work Phone: [facility] 09-11-2023 10:31-0400 Body temperature 97.81 [degF] Steve Yeison MBBS Work Phone: [facility] 09-11-2023 10:31-0400 Diastolic blood pressure 66 mm[Hg] Steve Yeison MBBS Work Phone: [facility] 09-11-2023 10:31-0400 Heart rate 70 /min Steve Yeison MBBS Work Phone: [facility] 09-11-2023 10:31-0400 Respiratory rate 20 /min Steve Yeison MBBS Work Phone: [facility] 09-11-2023 10:31-0400 SaO2% (BldA) [Mass fraction] 91 % Steve Yeison MB[employer] Work Phone: [facility] 09-11-2023 10:31-0400 Systolic blood pressure 129 mm[Hg] Tseve Yeison MBBS Work Phone: [facility] 09-10-2023 15:50-0400 Body mass index (BMI) [Ratio] 31.99 kg/m2 Steve Yeison MBBS Work Phone: [facility] 09-10-2023 15:50-0400 Body weight 92.67 kg Steve Yeison MBBS Work Phone: [facility] 09-02-2023 07:32-0400 Body height 170.2 cm Steve Yeison MBBS Work Phone: [facility] 08-28-2023 13:33-0400 Body height 170.2 cm Steve Yeison MBBS Work Phone: [facility] 08-28-2023 13:33-0400 Body mass index (BMI) [Ratio] 32.12 kg/m2 Steve Yeison MBBS Work Phone: [facility] 08-28-2023 13:33-0400 Body temperature 97.3 [degF] Steve Yeison MBBS Work Phone: [facility] 08-28-2023 13:33-0400 Body weight 93.03 kg Steve Yeison MBBS Work Phone: [facility] 08-28-2023 13:33-0400 Diastolic blood pressure 41 mm[Hg] Steve Yeison MBBS Work Phone: [facility] 08-28-2023 13:33-0400 Heart rate 116 /min Steve Yeison MBBS Work Phone: [facility] 08-28-2023 13:33-0400 Systolic blood pressure 106 mm[Hg] Steve Yeison MBBS Work Phone: [facility] 06-12-2023 14:50-0400 Body mass index (BMI) [Ratio] 33.8 kg/m2 Rebeca Gutierrez COMPUTER SYSTEM TECHNICIAN-[employer]OCK[employer] SELECTOR Work Phone: [facility] 06-12-2023 14:50-0400 Body temperature 97.3 [degF] Rebeca Gutierrez COMPUTER SYSTEM TECHNICIAN-[employer]OCK[employer] SELECTOR Work Phone: [facility] 06-12-2023 14:50-0400 Body weight 97.89 kg Rebeca Gutierrez COMPUTER SYSTEM TECHNICIAN-[employer]OCK[employer] SELECTOR Work Phone: [facility] 06-12-2023 14:50-0400 Diastolic blood pressure 77 mm[Hg] Rebeca Gutierrez COMPUTER SYSTEM TECHNICIAN-[employer]OCK[employer] SELECTOR Work Phone: [facility] 06-12-2023 14:50-0400 Heart rate 76 /min Rebeca Gutierrez COMPUTER SYSTEM TECHNICIAN-[employer]OCK[employer] SELECTOR Work Phone: [facility] 06-12-2023 14:50-0400 Systolic blood pressure 146 mm[Hg] Rebeca Gutierrez COMPUTER SYSTEM TECHNICIAN-[employer]OCKRO[employer] SELECTOR Work Phone: [facility] 01-16-2023 08:57-0500 Body height 170.2 cm [facility] Work Phone: [facility] 01-16-2023 08:57-0500 Body mass index (BMI) [Ratio] 33.66 kg/m2 [facility] Work Phone: [facility] 01-16-2023 08:57-0500 Body temperature 97.3 [degF] [facility] Work Phone: [facility] 01-16-2023 08:57-0500 Body weight 97.48 kg [facility] Work Phone: [facility] 01-16-2023 08:57-0500 Diastolic blood pressure 75 mm[Hg] [facility] Work Phone: [facility] 01-16-2023 08:57-0500 Heart rate 76 /min [facility] Work Phone: [facility] 01-16-2023 08:57-0500 Systolic blood pressure 142 mm[Hg] [facility] Work Phone: [facility] 09-10-2022 09:38-0400 Body height 170.2 cm Ryan Yepez MD Work Phone: [facility] 09-10-2022 09:38-0400 Body mass index (BMI) [Ratio] 33.67 kg/m2 Ryan Yepez MD Work Phone: [facility] 09-10-2022 09:38-0400 Body weight 97.52 kg Ryan Yepez MD Work Phone: [facility] 09-10-2022 09:38-0400 Diastolic blood pressure 83 mm[Hg] Ryan Yepez MD Work Phone: [facility] 09-10-2022 09:38-0400 Heart rate 64 /min Ryan Yepez MD Work Phone: [facility] 09-10-2022 09:38-0400 SaO2% (BldA) [Mass fraction] 96 % Ryan Yepez MD Work Phone: [facility] 09-10-2022 09:38-0400 Systolic blood pressure 129 mm[Hg] Ryan Yepez MD Work Phone: [facility] 07-07-2022 13:48-0400 Diastolic blood pressure 76 mm[Hg] Ryan Yepez MD Work Phone: [facility] 07-07-2022 13:48-0400 Heart rate 82 /min Ryan Yepez MD Work Phone: [facility] 07-07-2022 13:48-0400 SaO2% (BldA) [Mass fraction] 96 % Ryan Yepez MD Work Phone: [facility] 07-07-2022 13:48-0400 Systolic blood pressure 141 mm[Hg] Ryan Yepez MD Work Phone: [facility] 06-27-2022 13:32-0400 Body height 170.2 cm Ryan Yepez MD Work Phone: [phone])[phone] [address] 06-27-2022 13:32-0400 Body mass index (BMI) [Ratio] 34.24 kg/m2 Ryan Yepez MD Work Phone: [phone])[phone] [address] 06-27-2022 13:32-0400 Body temperature 98.6 [degF] Ryan Yepez MD Work Phone: [facility] 06-27-2022 13:32-0400 Body weight 99.16 kg Ryan Yepez MD Work Phone: [phone](430)[phone] [address] 06-27-2022 13:32-0400 Diastolic blood pressure 78 mm[Hg] Ryan Yepez MD Work Phone: [facility] 06-27-2022 13:32-0400 Heart rate 77 /min Ryan Yepez MD Work Phone: [facility] 06-27-2022 13:32-0400 SaO2% (BldA) [Mass fraction] 95 % Ryan Yepez MD Work Phone: [facility] 06-27-2022 13:32-0400 Systolic blood pressure 121 mm[Hg] Ryan Yepez MD Work Phone: [facility] 06-27-2022 10:52-0400 Body height 170.2 cm Rena Brewster RN [facility] 06-27-2022 10:52-0400 Body mass index (BMI) [Ratio] 34.46 kg/m2 Rena Brewster RN [facility] 06-27-2022 10:52-0400 Body temperature 98.2 [degF] Rena Brewster RN [facility] 06-27-2022 10:52-0400 Body weight 99.79 kg Rena Brewster RN [facility] 06-27-2022 10:52-0400 Diastolic blood pressure 73 mm[Hg] Rena Brewster RN [facility] 06-27-2022 10:52-0400 Heart rate 78 /min Rena Brewster RN [facility] 06-27-2022 10:52-0400 Respiratory rate 20 /min Rena Brewster RN [facility] 06-27-2022 10:52-0400 SaO2% (BldA) [Mass fraction] 97 % Rena Brewster RN [facility] 06-27-2022 10:52-0400 Systolic blood pressure 135 mm[Hg] Rena Brewster RN [facility] 06-12-2022 14:23-0400 Body mass index (BMI) [Ratio] 34.59 kg/m2 Steve Latham MBBS Work Phone: [facility] 06-12-2022 14:23-0400 Body temperature 97 [degF] Steve Farrari MBBS Work Phone: [facility] 06-12-2022 14:23-0400 Body weight 100.2 kg Steve Farrari MBBS Work Phone: [facility] 06-12-2022 14:23-0400 Diastolic blood pressure 66 mm[Hg] Steve Farrari MBBS Work Phone: [facility] 06-12-2022 14:23-0400 Heart rate 63 /min Steve LEIGH Work Phone: [facility] 06-12-2022 14:23-0400 Systolic blood pressure 133 mm[Hg] Stevemassiel Farrarmatthew LEIGH Work Phone: [facility] 05-20-2022 15:21-0400 Body temperature 97.9 [degF] Gian Villatoro MD Work Phone: [facility] 05-20-2022 15:21-0400 Diastolic blood pressure 64 mm[Hg] Gian Villatoro MD Work Phone: [facility] 05-20-2022 15:21-0400 Heart rate 55 /min Gian Villatoro MD Work Phone: [facility] 05-20-2022 15:21-0400 Respiratory rate 15 /min Gian Villatoro MD Work Phone: [facility] 05-20-2022 15:21-0400 SaO2% (BldA) [Mass fraction] 95 % Gian Villatoro MD Work Phone: [facility] 05-20-2022 15:21-0400 Systolic blood pressure 145 mm[Hg] Gian Villatoro MD Work Phone: [facility] 05-19-2022 12:15-0400 Body mass index (BMI) [Ratio] 35.87 kg/m2 Gian Villatoro MD Work Phone: [facility] 05-19-2022 12:15-0400 Body weight 103.92 kg Gian Villatoro MD Work Phone: [facility] Comment on above: standing scale 05-16-2022 16:19-0400 Body height 170.2 cm Gian Villatoro MD Work Phone: [phone] [address] 10-19-2018 08:44-0500 BMI (Body Mass Index) 26.58 kg/m2 [facility]: 10-19-2018 08:44-0500 BP Diastolic 76 mm[Hg] [facility] Work Phone: 10-19-2018 08:44-0500 BP Systolic 144 mm[Hg] [facility] Work Phone: 10-19-2018 08:44-0500 Height 172.7 cm [facility] Work Phone: 10-19-2018 08:44-0500 Pulse (Heart Rate) 92 /min [facility] Work Phone: 10-19-2018 08:44-0500 Pulse Oximetry 99 % [facility] Work Phone: 10-19-2018 08:44-0500 Respiratory Rate 16 /min [facility] Work Phone: 10-19-2018 08:44-0500 Weight 79.29 kg [facility] Work Phone: 10-12-2018 09:50-0500 BMI (Body Mass Index) 27.24 kg/m2 [facility] Work Phone: 10-12-2018 09:50-0500 Body Temperature 98.6 [degF] [facility] Work Phone: 10-12-2018 09:50-0500 BP Diastolic 80 mm[Hg] [facility] Work Phone: 10-12-2018 09:50-0500 BP Systolic 157 mm[Hg] [facility]ma[facility] Work Phone: 10-12-2018 09:50-0500 [facility] Work Phone: 10-12-2018 09:50-0500 Pulse (Heart Rate) 94 /min [facility] Work Phone: 10-12-2018 09:50-0500 [facility] 78.[facility] Work Phone: Encounters Encounter Date Encounter Type Care Provider Facility Start: 04-18-2024 End: 04-18-2024 ambulatory ZULY BRUNO Not Available Start: 03-24-2024 End: 03-24-2024 Patient encounter procedure Angel Carpio [facility] Pharm[facility] Outpatient [facility] [place] Start: 03-24-2024 End: 03-24-2024 ambulatory Angel Carpio [facility] Pharmacy Outpatient [facility] [place] Start: 03-22-2024 End: 03-22-2024 ambulatory JOHNNA BRINK Not Available Start: 03-17-2024 End: 03-17-2024 ambulatory JOHNNA BRINK Not Available Start: 03-14-2024 End: 03-14-2024 ambulatory FIDELINA DANIEL Not Available Start: 03-10-2024 End: 03-10-2024 ambulatory JOHNNA BRINK Not Available Start: 03-08-2024 End: 03-08-2024 ambulatory JOHNNA BRINK Not Available Start: 03-03-2024 End: 03-03-2024 ambulatory JOHNNA BRINK Not Available Start: 03-02-2024 End: 03-02-2024 ambulatory Meka Munoz [facility] Outpatient [facility] [place] Start: 03-02-2024 End: 03-02-2024 Patient encounter procedure Meka Munoz [facility] Pharm[facility] Outpatient [facility] [place] Start: 03-01-2024 ambulatory ZULY BRUNO Facility: [facility] Start: 03-01-2024 End: 03-01-2024 ambulatory JOHNNA HOLLIDAY Not Available Start: 02-26-2024 ambulatory ZULY KRISTOPHERHHOLZ Facility: [facility] Start: 02-26-2024 ambulatory ZULY AICHHOLZ Facility: [facility] Start: 02-26-2024 End: 02-26-2024 Office outpatient new 30 minutes Candie Almaguer MD Work Phone: Counselling Psychologist [facility] Comment on above: Heart failure, diast olic, acute (Primary Dx) Start: 02-25-2024 End: 02-25-2024 ambulatory FIDELINA SANCHEZ Not Available Start: 02-23-2024 End: 02-23-2024 ambulatory PALMA Star SUZANNE Not Available Start: 02-11-2024 End: 02-11-2024 ambulatory ZULY KIANA Not Available Start: 01-16-2024 Encounter for other preprocedural examination KELVIN PACHECO [facility] Start: 01-16-2024 End: 01-23-2024 Evaluation and management of inpatient KEVIN PRINCE Facility:[facility] Start: 01-16-2024 End: 01-23-2024 Evaluation and management of inpatient Kevin Prince MD Work Phone: [email or web address] Comment on above: Pleural effusion on right Start: 01-16-2024 End: 01-23-2024 Patient encounter status Kevin Prince MD Work Phone: [facility] Work Phone: Start: 01-12-2024 End: 01-12-2024 ambulatory Angel Fete RPh,PharmD Pharmacy Outpatient [facility] [place] Start: 01-12-2024 End: 01-12-2024 Patient encounter procedure Angel Fete RPh,PharmD Pharmacy Outpatient [facility] [place] Start: 01-08-2024 Clinisync Result Encounter Generic External Data Provider [facility] External Department Unsolicited Start: 01-08-2024 Clinisync Result Encounter Generic External Data Provider [facility] External Department Unsolicited Start: 01-06-2024 End: 01-06-2024 ambulatory ZULY AICHHOLZ Not Available Start: 01-06-2024 End: 01-06-2024 Office outpatient visit 25 minutes Zuly Kiana [employer] MAINFRAME DEVELOPER Work Phone: [facility] Comment on above: [...] KIANA Not Available Start: 10-06-2023 ambulatory Angel Fete RPh,PharmD Pharm[facility]patient [facility] [place] Start: 10-06-2023 Patient encounter procedure Angel Fete RPh,PharmD Pharmacy Outpatient [facility] [place] Start: 09-29-2023 ambulatory ZULY BRUNO Facility: [facility] Start: 09-24-2023 ambulatory ZULY BRUNO Facility: [facility] Start: 09-23-2023 ambulatory HAKEEM ALAMO Facility :[facility] Start: 09-15-2023 [facility] Start: 08-28-2023 End: 09-11-2023 Evaluation and management of inpatient KEVIN PRINCE Facility:[facility] Start: 08-28-2023 End: 09-11-2023 Evaluation and management of inpatient Steve LEIGH Work Phone: [id number] Start: 08-28-2023 ambulatory STEVE LATHAM Facility:[facility] Start: 08-28-2023 End: 08-28-2023 Office outpatient visit 25 minutes Steve LEIGH Work Phone: [facility] Comment on above: Immunosuppressed sta tus (Primary Dx); Kidney replaced by transplant; Aftercare following organ transplant; High risk medication use; Other general symptoms and signs; Abnormal blood chemistry; Hypertension secondary to other renal disorders Start: 08-19-2023 ambulatory Meka rueda [facility] Outpatient [facility] [place] Start: 08-19-2023 Patient encounter procedure Meka Munoz [facility] [place] Start: 06-12-2023 ambulatory SELF SELF Facility:[facility] Start: 06-12-2023 End: 06-12-2023 Office outpatient visit 25 minutes Steve Latham MBBS Work Phone: [facility] Comment on above: 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) Start: 06-10-2023 ambulatory Maren Bar RPh,PharmD Pharmacy Outpatient [facility] [place] Start: 06-10-2023 Patient encounter procedure Maren Bar RPh,PharmD Pharmacy Outpatient [facility] [place] Start: 05-26-2023 ambulatory ZULY BRUNO Facility: [facility] Start: 04-28-2023 End: 04-29-[address] DOCTOR EVANS Facility:[facility] Start: 04-13-2023 End: 04-13-2023 ambulatory [facility] Start: 03-12-2023 ambulatory Angel Fete RPh,PharmD Pharmacy Outpatient [facility] [place] Start: 03-12-2023 Patient encounter procedure Angel Fete RPh,PharmD Pharmacy [facility]patient [facility] [place] Start: 03-10-2023 ambulatory Angel Fete RPh,PharmD Pharmacy Outpatient [facility] [place] Start: 03-10-2023 Patient encounter procedure Angel Fete RPh,PharmD Pharm[facility]patient [facility] [place] Start: 03-02-2023 End: 03-03-[address] DOCTOR EVANS Facility:[facility] Start: 01-16-2023 End: 01-16-2023 Office outpatient visit 25 minutes Daisha Max DO Work Phone: [facility] Comment on above: Abnormal blood chemi [...] MD Work Phone: [facility] Comment on above: BPH with obstruction /lower urinary tract symptoms (Primary Dx); Encounter for screening for malignant neoplasm of prostate Start: 08-28-2022 End: 08-29-2022 ambulatory ROB BRUNO Facility:[facility] Start: 08-14-2022 End: 08-15-[address] DOCTOR EVANS Facility:[facility] Start: 07-07-2022 End: 07-07-2022 Patient encounter procedure Ryan Yepez MD Work Phone: [facility] Comment on above: Other hydronephrosis (Primary Dx); [...] MD Work Phone: [facility] Comment on above: Other hydronephrosis (Primary Dx) [...] LAWRENCE Facility:[facility] Start: 03-14-2022 ambulatory Comfort Rivera [facility] Work Phone: Pharmacy Outpatient [facility] [place] Start: 03-14-2022 Patient encounter procedure Comfort Rivera [facility] Work Phone: Pharmacy Outpatient [facility] [place] Start: 06-14-2021 End: 06-14-2021 ambulatory Comfort Rivera [facility] Work Phone: [facility] Start: 06-14-2021 Patient encounter procedure Comfort Rivera [facility] Work Phone: [facility] Start: 01-20-2020 End: 01-27-2020 Patient encounter procedure PEPE CASE Facility:[facility] Start: 01-06-2020 End: 01-07-2020 Patient encounter procedure [facility] Start: 01-06-2020 End: 01-06-2020 Subsequent hospital visit by physician [facility] Start: 10-24-2019 End: 10-25-2019 Patient encounter procedure TANA CAMPA [facility] Start: 10-24-2019 End: 10-24-2019 Subsequent hospital visit by physician [facility] Start: 08-27-2019 End: 08-28-2019 Patient encounter procedure RENA GUDINO [facility] Start: 08-27-2019 End: 08-27-2019 Subsequent hospital visit by physician [facility] Start: 08-08-2019 End: 08-09-2019 Patient encounter procedure [facility] Start: 08-08-2019 End: 08-08-2019 Subsequent hospital visit by physician [facility] Start: 08-03-2019 End: 08-04-2019 Patient encounter procedure [facility] Start: 08-03-2019 End: 08-03-2019 Subsequent hospital visit by physician [facility] Start: 08-01-2019 End: 08-02-2019 Patient encounter procedure [facility] Start: 08-01-2019 End: 08-01-2019 Subsequent hospital visit by physician [facility] Start: 06-10-2019 End: 06-11-2019 Patient encounter procedure RENA GUDINO [facility] Start: 06-01-2019 End: 06-02-2019 [facility] Start: 01-14-2019 End: 01-15-2019 [facility] Start: 11-17-2018 End: 11-17-2018 Patient encounter procedure Fidelina Pierson [facility] Pre Transplant Office Comment on above: Social Work Follow-u p Start: 10-19-2018 End: 10-19-2018 Patient encounter Autumn [facility] Pre Transplant Office Comment on [...] End: 10-13-2018 Patient encounter procedure Autumn Rooney [facility] Pre [facility]plant Office Comment on above: Reschedule Outside Medical Allan rds Request Start: 10-12-2018 End: 10-12-2018 Patient encounter procedure Sophie Cary [facility] Pre Transplant Office Comment on above: Alcoholic cirrhosis, unspecified whether ascites present (Primary Dx); Pre-transplant evaluation for liver transplant Start: 10-12-2018 End: 10-12-2018 Office outpatient new 60 minutes Alfredito Restrepo Work Phone: [facility] Pre Transplant Office Comment on above: Alcoholic cirrhosis, unspecified whether ascites present; ESRD (end stage renal disease) on dialysis; Pre-transplant evaluation for liver transplant Start: 10-06-2018 End: 10-06-2018 Patient encounter procedure Yovani Orr Work Phone: Department of Radiology Comment on above: Canceled (Insurance Company Redirected Pt) Start: 10-05-2018 Patient encounter status Comfort Rivera [facility] Work Phone: [facility] Procedures Date Procedure Procedure Detail Performing Clinician Start: 01-23-2024 Glucose measurement, blood Kelvin Pacheco MD, MBAPOORVA Work Phone: Start: 01-23-2024 Glucose measurement, blood [...] above: Performed By: #### X M ####[facility] ([facility])[address] [place] [address] Start: 01-22-2024 Assay of magnesium Just in [...] Phone: Start: 01-20-2024 ITRACONAZOLE LEVEL Jennifer norbert K Alarcon [facility] Work Phone: Start: 01-20-2024 Oscillating positive expiratory [...] nos quantifica tion each organism Fidelina Alarcon [facility] Work Phone: Start: 01-18-2024 Echocardiography ZULY VANG [...] AURIS SCREEN BY PCR Carol Ann Capps COMPUTER SYSTEM TECHNICIAN-BODYBUILDER Work Phone: Start: 01-08-2024 ALL CBC WITH [...] nos amplified probe tq each organism Evan A Bryandiana Work Phone: Start: 08-31-2023 End: 08-31-2023 Iaad [...] Phone: Start: 08-31-2023 Hepatic function panel Evan eKlly MD Work Phone: Start: 08-30-2023 Assay of [...] AURIS SCREEN BY PCR Carol Ann Capps COMPUTER SYSTEM TECHNICIAN-BODYBUILDER Work Phone: Start: 08-28-2023 CBC AND ELECTRONIC [...] above: Performed By: #### C MP #### [facility] [address] [address] [address] Dwight Waters Start: 07-07-2022 Rmvl nfros [...] recipient S/P liver trans plant Comfort Rivera [facility] Work Phone: Start: 04-08-2020 H/O: liver recipient Liver tra nsplant recipient Comfort Rivera [facility] Work Phone: Start: 01-06-2020 Potassium serum plasma/whole blood ROB PATINO Start: 01-06-2020 Potassium serum plasma/whole blood Rena [...] De ceased-donor kidney transplant recipient Comfort Rivera [facility] Work Phone: Start: 06-10-2019 HEMOGLOBIN AND HEMAT OCRIT, BLOOD RBO KASMANI Start: 06-01-2019 Blood count hemoglobin ROB KASMANI Start: 03-22-2019 Lipid 1996 panel - S fabricio or Plasma Comfort Rivera [facility] Work Phone: Start: 01-14-2019 Potassium serum plasma/whole [...] Yovani Orr Work Phone: Start: 10-12-2018 End: 11-13-2018 Alpha-fetoprotein serum Yovani Orr Work Phone: Start: [...] Phone: Start: 10-12-2018 End: 10-12-2018 Bilirubin total Yoavni Orr Work Phone: Start: 10-12-2018 End: 10-12-2018 Calcium total Yovani Orr Work Phone: Start: 10-12-2018 End: 10-12-2018 CBC, EDIF, PLATELET Yovani Orr Work Phone: Start: 10-12-2018 End: 10-12-2018 Creatinine blood Yovani rOr Work Phone: Start: 10-12-2018 End: 10-12-2018 Drug [...] recipient Liver repla vida by transplant Steve MORENO Work Phone: H/O: liver recipient Liver trans plant recipient Daisha Tray Sobotka DO Work Phone: H/O: liver recipient S/P liver transplant Generic Provider History of renal transplant Kidn ey replaced by transplant Steve Latham MBBS Work Phone: History of renal transplant Dece ased-donor kidney transplant recipient Ryan Yepez MD Work Phone: History of renal transplant Kidn ey replaced by transplant Daisha Feliz Sobotka DO Work Phone: History of renal transplant Kidn ey replaced by transplant Steve Latham MBBS Work Phone: History of renal transplant Kidn ey replaced by transplant Steve Latham MBBS Work Phone: History of renal transplant Dece ased-donor kidney transplant recipient Steve Latham MBBS Work Phone: Plan of Treatment Date Care Activity Detail Author Start: 09-20-2029 Screening for malignant neoplasm of colon [facility] Start: 03-28-2025 Potassium [Moles/volume] in Serum or Plasma POTASSIUM [facility] Start: 03-21-2025 Potassium [Moles/volume] in Serum or Plasma POTASSIUM [facility] Start: 02-28-2025 Potassium [Moles/volume] in Serum or Plasma POTASSIUM [facility] Start: 01-23-2025 Potassium [Moles/volume] in Serum or Plasma POTASSIUM [facility] Start: 08-31-2024 Screening for malignant neoplasm of lung [facility] Start: 06-17-2024 End: 06-17-2024 ambulatory [facility] Start: 06-17-2024 End: 06-17-2024 Patient encounter procedure [facility] Start: 03-22-2024 Fasting lipid profile LIPID SCREENING [facility] Start: 03-22-2024 Lipid panel [facility] Start: 02-26-2024 End: 02-26-2024 Patient encounter procedure 02/26/2024 9:30 AM EDT Office Visit Counselling Psychologist [facility] [address] [place] [phone] Candie Almaguer MD [address] [place] [phone] Coun[facility] Start: 02-11-2024 End: 02-11-2024 Patient encounter procedure 02/11/2024 10:30 AM EDT Office Visit [facility] [address] [place] [address] Zuly Bruno NP [address] [place] [place] [phone] [facility] Start: 02-09-2024 End: 02-09-2024 Telemedicine consultation with patient 02/09/2024 3:30 PM EDT Telemedicine [facility] [address] [phone] Hakeem Alamo MD [address] [place] [id number] [facility] Start: 01-15-2024 End: 01-15-2024 ambulatory [facility] Start: 01-15-2024 End: 01-15-2024 Patient encounter procedure [facility] Start: 01-06-2024 End: 01-06-2026 Echocardiogram 2D complete Echocardiogram 2D complete Echocardiography Routine DARLENE (obstructive sleep apnea) Primary hypertension (CMS/HCC) Bilateral lower extremity edema Shortness of breath Expected: 01/06/2024 (Approximate), Expires: 01/06/2026 [facility] Work Phone: Comment on above: Expected: 01/06/2024 (Approximate), Expi res: 01/06/2026 Start: 01-06-2024 End: 01-06-2024 Patient encounter procedure 01/06/2024 9:00 AM EST Office Visit [facility] [address] [place] [phone] Zuly Bruno NP [address] [place] [phone] [facility] Start: 12-08-2023 End: 09-07-2024 CT Chest WO contrast [facility] Work Phone: Start: 12-01-2023 COVID-19 VACCINE (2 - Moderna risk series) COVID-19 VACCINE (2 - Moderna risk series) [facility] Start: 09-23-2023 End: 09-23-2023 ambulatory [facility] Start: 09-23-2023 End: 09-23-2023 Telemedicine consultation with patient 09/23/2023 4:00 PM EDT Telemedicine Infectious Diseases Care [facility] [address] [place] [address] Hakeem Alamo MD [address] [place] [address] Infectious Diseases Care [facility] Start: 09-15-2023 End: 09-10-2024 ITRACONAZOLE LEVEL [facility] Start: 08-25-2023 End: 08-25-2024 ALLOSCREEN RECIPIENT (POST TX PRA) ALLOSCREEN RECIPIENT (POST TX PRA) Lab Routine Kidney replaced by transplant Aftercare following organ transplant Immunosuppressed status High risk medication use Other general symptoms and signs Abnormal blood chemistry Expected: 08/25/2023, Expires: 08/25/2024 [facility] Comment on above: Expected: 08/25/2023, Expires: Start: 07-31-2023 Influenza vaccination [facility] Start: 06-12-2023 End: 06-12-2023 Patient encounter procedure 06/12/2023 Office Visit Transplant Surgery Steve Latham MBBS [address] [place] [address] [facility] Start: 03-11-2023 End: 03-11-2023 Telemedicine consultation with patient 03/11/2023 Telemedicine Urology Ryan Yepez MD [address] [place] [address] [facility] Start: 01-16-2023 End: 01-16-2023 Patient encounter procedure 01/16/2023 Office Visit Transplant Surgery [facility] Start: 10-31-2022 End: 10-31-2022 Patient encounter procedure 10/31/2022 Office Visit Transplant Surgery Steve Latham, JOSHBS [address] [place] [phone] [facility] Start: 09-10-2022 End: 09-10-2023 PSA screening PSA, SCREENING Lab Routine BPH with obstruction/lower urinary tract symptoms Encounter for screening for malignant neoplasm of prostate Expected: 09/10/2022 (Approximate), Expires: 09/10/2023 [facility] Comment on above: Expected: 09/10/2022 (Approximate), Expi res: 09/10/2023 Start: 08-11-2022 End: 08-11-2022 Patient encounter procedure 08/11/2022 Office Visit Urology Ryan Yepez MD [address] [facility] [address] [place] [address] [facility] Start: 07-31-2022 Influenza vaccination [facility] Start: 07-07-2022 End: 07-07-2022 Patient encounter procedure 07/07/2022 Office Visit Ryan Webster MD [address] [facility] [address] [place] [address] [facility]rology [facility] [place] Start: 07-07-2022 End: 07-07-2023 FLUORO IMAGING FOR UROLOGY [facility] Comment on above: Expected: 07/07/2022, Expires: 3 1 Occurrences starti ng 07/07/2022 until 07/07/2022 Start: 06-27-2022 End: 06-27-2022 Patient encounter procedure 06/27/2022 Office Visit Urology Ryan Yepez MD [address] [facility] [address] [phone] Urology [facility] [place] Start: 06-27-2022 End: 06-27-2023 Basic metabolic 2000 panel - Serum or Plasma BASIC METABOLIC PANEL Lab Routine Other hydronephrosis Expected: 06/27/2022, Expires: 06/27/2023 [facility] Comment on above: Expected: 06/27/2022, Expires: 3 Start: 06-27-2022 End: 06-27-2022 Patient encounter procedure 06/27/2022 Appointment Computerized Tomography Scan Ryan Yepez MD [address] [facility] [address] [phone] Department of Radiology Start: 06-15-2022 End: 05-16-2023 CT Abdomen and Pelvis WO contrast CT ABDOMEN/PELVIS WITHOUT CONTRAST Imaging Routine FAYE (acute kidney injury) Expected: 06/15/2022 (Approximate), Expires: 05/16/2023 [facility] Work Phone: Comment on above: Expected: 06/15/2022 (Approximate), Expi res: 05/16/2023 Start: 06-12-2022 End: 06-12-2022 Patient encounter procedure 06/12/2022 Office Visit Transplant Surgery Steve Latham, LU [address] [place] [address] [facility] Start: 06-11-2022 End: 06-11-2023 BK VIRUS DNA QN, PCR, PLASMA BK VIRUS DNA QN, PCR, PLASMA Lab Routine Kidney replaced by transplant Liver replaced by transplant Abnormal blood chemistry Expected: 06/11/2022, Expires: 06/11/2023 [facility] Comment on above: Expected: 06/11/2022, Expires: Start: 06-04-2022 End: 06-04-2022 Patient encounter procedure 06/04/2022 Office Visit [facility]ventional [facility]iology [facility] Start: 10-18-2021 End: 10-18-2021 Patient encounter procedure 10/18/2021 Office Visit Transplant Surgery Steve Latham, LU [address] [place] [phone] [facility] Start: 07-31-2021 Influenza vaccination INFLUENZA VACCINE (#1) [facility] Start: 07-26-2021 End: 07-26-2021 Patient encounter procedure 07/26/2021 Office Visit Transplant Surgery [facility] Start: 2021 Prostate specific antigen measurement [facility] Start: 2021 Screening for malignant neoplasm of lung LUNG CANCER SCREENING [facility] Start: 2021 Zoster vaccine hzv live for subcutaneous use ZOSTER (SHINGLES) VACCINE (1 of 2) [facility] Start: 09-20-2020 Colonoscopy COLORECTAL CANCER SCREENING DISCUSSION [facility] Start: 09-20-2020 Screening for malignant neoplasm of colon [facility] Start: 07-31-2019 Influenza vaccination Flu vaccine (#1) [place] Start: 05-22-2019 Annual Wellness Visit (AWV) Annual Wellness Visit (AWV) [place] Start: 04-18-2019 End: 10-19-2019 Ultrasonography of abdomen US ABDOMEN RUQ/LIVER/GB Routine Cirrhosis of liver without ascites, unspecified hepatic cirrhosis type Expected: 04/18/2019 (Approximate), Expires: 10/19/2019 [facility] Work Phone: Comment on above: Expected: 04/18/2019 (Approximate), Expi res: 10/19/2019 Start: 01-25-2019 End: 01-25-2019 Ambulatory 01/25/2019 Office Visit Gastroenterology Christin Elizabeth, COMPUTER SYSTEM TECHNICIAN-STOCKROOM SELECTOR [address] [place] [address] Division of Gastroenterology and Hepatology Gavin Start: 11-19-2018 End: 11-19-2018 Ambulatory 11/19/2018 Appointment Pulmonary Diagnostics [facility] Start: 11-19-2018 End: 11-19-2018 Ambulatory [facility] Start: 10-19-2018 End: 10-19-2018 Ambulatory Ultrasound Jakob Start: 10-12-2018 End: 10-12-2019 Hemoglobin A1c/Hemoglobin.total mass fraction (Bld) HEMOGLOBIN A1C Routine Alcoholic cirrhosis, unspecified whether ascites present Pre-transplant evaluation for liver transplant Expected: 10/12/2018, Expires: 10/12/2019 [facility] Work Phone: Comment on above: Expected: 10/12/2018, Expires: 9 Start: 10-12-2018 End: 10-12-2019 TYPE AND SCREEN - NOT FOR TRANSFUSION TYPE AND SCREEN - NOT FOR TRANSFUSION Routine Alcoholic cirrhosis, unspecified whether ascites present Pre-transplant evaluation for liver transplant Expected: 10/12/2018, Expires: 10/12/2019 [facility] Work Phone: Comment on above: Expected: 10/12/2018, Expires: 9 Start: 07-31-2018 Influenza vaccination INFLUENZA VACCINE (#1) [facility] Work Phone: Start: 2011 Fasting lipid profile LIPID SCREENING [facility] Work Phone: Start: 2011 Lipid screen Lipid screen [place] Start: 1990 DTaP/Tdap/Td vaccine (1 - Tdap) DTaP/Tdap/Td vaccine (1 - Tdap) [place] Start: 1990 Hepatitis B vaccination HEP B VACCINE (1 of 3 - 19+ 3-dose series) [facility] Start: 1990 Hepatitis B Vaccine (1 of 3 - Risk Recombivax 3-dose series) Hepatitis B Vaccine (1 of 3 - Risk Recombivax 3-dose series) [place] Start: 1990 Third diphtheria, tetanus and acellular pertussis (DTaP) vaccination [facility] Start: 1990 Zoster vaccine hzv live for subcutaneous use ZOSTER (SHINGLES) VACCINE (1 of 2) [facility] Start: 1990 [facility] Start: 1989 Tetanus vaccination TETANUS [facility] Start: 1986 HIV screen HIV screen [place], [place] Start: 02-17-1984 HIV screening HIV SCREENING DISCUSSION [facility] Work Phone: Start: 1983 COVID-19 VACCINE (1) COVID-19 VACCINE (1) [facility] Start: 1982 DTaP/Tdap/Td vaccine (1 - Tdap) DTaP/Tdap/Td vaccine (1 - Tdap) [place] Start: 1977 Pneumococcal 0-64 years Vaccine (1 of 3 - PCV13) Pneumococcal 0-64 years Vaccine (1 of 3 - PCV13) [place] Start: 1977 PNEUMOCOCCAL VACCINE SERIES (1 - PCV) PNEUMOCOCCAL VACCINE SERIES (1 - PCV) [facility] Start: 1977 PNEUMOCOCCAL VACCINE SERIES (1 of 2 - PCV) PNEUMOCOCCAL VACCINE SERIES (1 of 2 - PCV) [facility] Start: 1977 [facility] Start: 02-17-1976 COVID-19 VACCINE (#1) COVID-19 VACCINE (#1) [facility] Start: 02-17-1976 [facility] Start: 1971 COVID-19 VACCINE (#1) COVID-19 VACCINE (#1) [facility] Start: 1971 Hepatitis B vaccination HEP B VACCINE (1 of 3 - 3-dose series) [facility] Start: 1971 Medicare Annual Wellness (AWV) Medicare Annual Wellness (AWV) [facility] Start: 1971 Screening for malignant neoplasm of colon [facility] Start: 1971 Tetanus vaccination [facility] BK VIRUS DNA QN, PCR , PLASMA BK VIRUS DNA QN, PCR, PLASMA Lab Routine Kidney replaced by transplant Liver replaced by transplant Abnormal blood chemistry 06/12/2022 3:38 PM EDT [facility] CALCULI, URINARY (KIDNEY STONE) CALCULI, URINARY (KIDNEY STONE) Fluids Routine 05/19/2022 8:16 AM EDT [facility] Work Phone: CANNABINOIDS, QUANT (URINE)THC CONFIRMATION CANNABINOIDS, QUANT (URINE)THC CONFIRMATION Routine Alcoholic cirrhosis, unspecified whether ascites present ESRD (end stage renal disease) on dialysis Pre-transplant evaluation for liver transplant 10/12/2018 12:57 PM [facility] Work Phone: End: 09-10-2024 CHEM 6 (LYTES, BUN CREA) [facility] EBV VCA IGG AB EBV VCA IGG AB R outine Alcoholic cirrhosis, unspecified whether ascites present ESRD (end stage renal disease) on dialysis Pre-transplant evaluation for liver transplant 10/12/2018 12:57 PM [facility] Work Phone: Fungus identified in Unspecified specimen by Culture [facility] HLA TYPING (SOLID ORGAN) HLA TYPING (SOLID ORGAN) Routine Alcoholic cirrhosis, unspecified whether ascites present ESRD (end stage renal disease) on dialysis Pre-transplant evaluation for liver transplant 10/12/2018 12:57 PM [facility] Work Phone: HSV 1 AND 2 IGG ANTIBODY HSV 1 AND 2 IGG ANTIBODY Routine Alcoholic cirrhosis, unspecified whether ascites present ESRD (end stage renal disease) on dialysis Pre-transplant evaluation for liver transplant 10/12/2018 12:57 PM [facility] Work Phone: 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 specific culture [facility] PLACEMENT NEPHROSTOM Y CATHETER PERCUTANEOUS W/ IMAGE GUIDANCE PLACEMENT NEPHROSTOMY CATHETER PERCUTANEOUS W/ IMAGE GUIDANCE Imaging Routine Hydronephrosis due to obstruction of ureteral orifice FAYE (acute kidney injury) 05/17/2022 11:08 AM EDT [facility] NM POST VOID RESIDUAL NM POST VO ID RESIDUAL NM - OFFICE PERFORMED Routine BPH with obstruction/lower urinary tract symptoms Ordered: 09/10/2022 [facility] Comment on above: Ordered: 09/10/2022 PTH INTACT PTH INTACT Routi ne Alcoholic cirrhosis, unspecified whether ascites present ESRD (end stage renal disease) on dialysis Pre-transplant evaluation for liver transplant 10/12/2018 12:57 PM [facility] Work Phone: RUBEOLA IGG AB (IMMU NE STATUS) RUBEOLA IGG AB (IMMUNE STATUS) Routine Alcoholic cirrhosis, unspecified whether ascites present ESRD (end stage renal disease) on dialysis Pre-transplant evaluation for liver transplant 10/12/2018 12:57 PM [facility] Work Phone: End: 01-16-2024 Standard ECG ECG ECG Routine One Time for 1 Occurrences starting 01/16/2024 until 01/16/2024 [facility] Comment on above: One Time for 1 Occurrences starting 12/31 until 01/16/2024 End: 09-10-2024 TACROLIMUS LEVEL, TROUGH (PRE DRUG LEVEL) [facility] VARICELLA IGG AB (IM M STATUS) VARICELLA IGG AB (IMM STATUS) Routine Alcoholic cirrhosis, unspecified whether ascites present ESRD (end stage renal disease) on dialysis Pre-transplant evaluation for liver transplant 10/12/2018 12:57 PM [facility] Work Phone: Immunizations Immunization Date Immunization Notes Care Provider Fa jimmy 11-03-2023 influenza virus vacc ine, unspecified formulation Generic Provider [facility] 11-03-2023 Moderna SARS-CoV-2 50mcg/0.5mL Booster Generic Provider [facility] Payers Date Payer Category Payer Unknown [id number] 2019 Unknown [facility] [id number] 2019-Present [id number] [id number] 2018 Medicaid MEDICAID [facility] DEPT OF JOB xxxxxxxxxxxx 2018-Present [phone] [address] [place] [address] xxxxxxxxxxxx [id number] .[id number] 2018 Medicaid MEDICAID MEDICAI D [id number] 2018-Present [address] [place] [address] [id number] [id number] .[id number] 2018 Medicaid [id number] [id number] .[id number] 2018 Medicare MEDICARE MEDICAR E PART A AND B xxxxxxxxxxx 2018-Present [phone] [address] [address] [place] [address] xxxxxxxxxxx [id number] .390297.315 2018 Medicare [id number] 2018 Medicare MEDICARE MEDICAR E A AND B [id number] 2018-Present [address] [place] [address] [id number] .[id number] 2018 Medicare [id number]. 1.13.172.2.7.3 .263102.315 1971 Unknown [id number] 2.16.840.1.697840.3.579.2.173 1971 Unknown [id number] 2.16.840.1.424992.3.579.2.173 1971 Unknown [id number] 2.16.840.1.161799.3.579.2.173 1971 Unknown [id number] 2.16.840.1.400219.3.579.2.173 1971 Unknown [id number] 2.16.840.1.439665.3.579.2.173 1971 Unknown [id number] 2.16.840.1.566421.3.579.2.173 1971 Unknown [id number] 2.16.840.1.515246.3.579.2.173 1971 Unknown [id number] 2.16.840.1.723243.3.579.2.173 1971 Unknown [id number] 2.16.840.1.134540.3.579.2.647 1971 Unknown [id number] 2.16.840.1.331590.3.579.2.593 1971 Unknown [id number] 2.16.840.1.029549.3.579.2.593 1971 Unknown [id number] 2.16.840.1.839820.3.579.2.593 1971 Unknown [id number] 2.16.840.1.598433.3.579.2.593 1971 Unknown [id number] 2.16.840.1.648596.3.579.2.593 1971 Unknown [id number] 2.16.840.1.573227.3.579.2.593 1971 Unknown [id number] 2.16.840.1.938695.3.579.2.593 1971 Unknown [id number] 2.16.840.1.839335.3.579.2.593 1971 Unknown [id number] 2.16.840.1.009831.3.579.2.593 1971 Unknown [id number] 2.16.840.1.087841.3.579.2.593 1971 Unknown [id number] 2.16.840.1.876921.3.579.2.593 1971 Unknown [id number] 2.16.840.1.827839.3.579.2.593 1971 Unknown [id number] 2.16.840.1.103087.3.579.2.593 1971 Unknown [id number] 2.16.840.1.927470.3.579.2.593 1971 Unknown [id number] 2.16.840.1.520594.3.579.2.593 1971 Unknown [id number] 2.16.840.1.960148.3.579.2.125 9 1971 Unknown [id number] 2.16.840.1.263190.3.579.2.125 9 1971 Unknown [id number] 2.16.840.1.463801.3.579.2.125 9 1971 Unknown [id number] 2.16.840.1.467387.3.579.2.125 9 1971 Unknown [id number] 2.16.840.1.608208.3.579.2.125 9 1971 Unknown [id number] 2.16.840.1.320455.3.579.2.125 9 1971 Unknown [id number] 2.16.840.1.333809.3.579.2.125 9 1971 Unknown [id number] 2.16.840.1.406618.3.579.2.125 9 1971 Unknown [id number] 2.16.840.1.332968.3.579.2.125 9 1971 Unknown [id number] 2.16.840.1.959903.3.579.2.125 9 1971 Unknown [id number] 2.16.840.1.858628.3.579.2.125 9 1971 Unknown [id number] 2.16.840.1.336736.3.579.2.125 9 1971 Unknown [id number] 2.16.840.1.692037.3.579.2.125 9 1971 Unknown [id number] 2.16.840.1.489553.3.579.2.125 9 1971 Unknown [id number] 2.16.840.1.275238.3.579.2.594 1971 Unknown [id number] 2.840.1.925038.3.579.2.594 1971 Unknown [id number] 2.16.840.1.672967.3.579.2.594 1971 Unknown [id number] 2.16.840.1.422415.3.579.2.594 1971 Unknown [id number] 2.16.840.1.601603.3.579.2.594 1971 Unknown [id number] 2.16.840.1.772474.3.579.2.594 1971 Unknown [id number] 2.16.840.1.742008.3.579.2.594 1971 Unknown [id number] 2.16.840.1.402327.3.579.2.594 1971 Unknown [id number] 2.16.840.1.964191.3.579.2.594 1971 Unknown [id number] 2.16.840.1.210552.3.579.2.594 1971 Unknown [id number] 2.16.840.1.742992.3.579.2.594 1971 Unknown [id number] 2.16.840.1.581332.3.579.2.594 1959 Medicaid [id number] 1958 Medicare [id number] Social History Date Type Detail Facility Start: 07-19-2018 End: 10-19-2018 Tobacco smoking status NHIS Former smoker [facility] Start: 07-19-1988 End: 05-14-2018 History of tobacco use Current smoker [facility] Work Phone: Start: 07-19-1988 End: 05-14-2018 History of tobacco use Cigarette Smoker [facility] Work Phone: Start: 10-19-2018 End: 03-24-2024 Cigarettes smoked current (pack per day) - Reported [facility] End: 07-19-1994 History of tobacco use Chews Tobacco [facility] Work Phone: Start: 1970 Sex Assigned At Not on file [facility] Work Phone: Start: 11-03-2018 Alcohol intake Current non-drinker of alcohol (finding) [place] Start: 06-22-2018 Alcohol Comment Hx of alcoholism [place] Start: 11-03-2018 End: 03-24-2024 Alcohol intake No [facility] Start: 07-19-2018 Tobacco use and exposure Former user [facility] Start: 09-06-2020 End: 03-24-2024 Alcohol intake Ex-drinker (finding) [facility] Start: 07-19-2018 Alcohol Comment stopped 05/14/2018 [facility] Start: 05-05-2022 End: 01-16-2023 Exposure to SARS-CoV-2 (event) Not sure [facility] Start: 07-07-2018 Gender identity Identifies as male gender (finding) [facility] Start: 01-16-2022 Sexual orientation Heterosexual (finding) [facility] Start: 11-03-2023 Tobacco use and [...] Dates [id number] Start: 05-23-2020 [id number] Start: 04-12-2020 ()[id number] [facility] Start: 05-17-2022 Comment on above: Description: Implant time-out completed by intra-procedural staff including this RN, transportation engineering technician, and performing physician. The following was [...] Melody Reyez - 03/24/2024 4:12 PM EDTTemil Jerry - 03/24/2024 4:12 PM Angie Rajput - 03/24/2024 4:12 PM EDAdeola Aissatou - 03/24/2024 4:12 PM EDTTemil Jerry - 03/24/2024 4:12 PM EDTAttachments Note Date & Type Note Facility 03-24-2024 History of Present illness Narrative [facility]RE[facility]: Call Information: Date and Time of Contact: 03/24/2024 4:14 PM Method of Contact: By Phone Contact Type: Prescriptions Contactor: [facility] Contactee: Patient Contact Outcome: Left message Shipping/Pickup: Medication Name: Prograf 0.2mg pack Contact Info: Specialty ([place]) [phone] [facility] [phone] [facility] [phone] [place] [phone] Bedside Delivery ([facility]) [phone] [facility]REACH [facility]VANCED: Call Information: Date and Time of Contact: 03/28/2024 3:58 PM Method of Contact: By Phone Contact Type: Prescriptions Contactor: [facility] Contactee: Patient Contact Outcome: Left message and Call back later Shipping/Pickup: Medication Name: Mycophenolate, prograf Contact Info: Specialty ([place]) [phone] [facility] [phone] [facility] [phone] [place] [phone] Bedside Delivery ([facility]) [phone] [facility]REACH ADVANCED: Call Information: Method of Contact: By Phone Contact Type: Prescriptions Contactor: Patient Contactee: [facility] Shipping/Pickup: Medicare B Refill?: No Medication Name: Mycopheolate 360mg and Prograf Delivery Method: Ship Delivery Location: Home Signature Required: No Receive/Pickup Date: 04/04/2024 Shipping Address: [address] [place] [address] [address] Contact Info: Specialty ([place]) [phone] [facility] [phone] [facility] [phone] [place] [phone] Bedside Delivery ([facility]) [phone] documented in this encounter [facility] 03-24-2024 History of Present illness Narrative [facility]REACH [facility]VANC[facility]: Call Information: Date and Time of Contact: 03/24/2024 4:14 PM Method of Contact: By Phone Contact Type: Prescriptions Contactor: [facility] Contactee: Patient Contact Outcome: Left message Shipping/Pickup: Medication Name: Prograf 0.2mg pack Contact Info: Specialty ([place]) [phone] [facility] [phone] [facility] [phone] [place] [phone] Bedside Delivery ([facility]) [phone] [facility] OUTREACH ADVANCED: Call Information: Date and Time of Contact: 03/28/2024 3:58 PM Method of Contact: By Phone Contact Type: Prescriptions Contactor: [facility] Contactee: Patient Contact Outcome: Left message and Call back later Shipping/Pickup: Medication Name: Mycophenolate, prograf Contact Info: Specialty ([place]) [phone] [facility] [phone] [facility] [phone] [place] [phone] Bedside Delivery ([facility]) [phone] [facility] OUTREACH ADVANCED: Call Information: Method of Contact: By Phone Contact Type: Prescriptions Contactor: Patient Contactee: [facility] Shipping/Pickup: Medicare B Refill?: No Medication Name: Mycopheolate 360mg and Prograf Delivery Method: Ship Delivery Location: Home Signature Required: No Receive/Pickup Date: 04/04/2024 Shipping Address: [address] [place] [address] [address] Contact Info: Specialty ([place]) [phone] [facility] [phone] [facility] [phone] [place] [phone] Bedside Delivery ([facility]) [phone] [facility] OUTREACH ADVANCED: Pre-Verification/Specialty Assessment/Disease [...] Review: Within normal limits Contact Info: Specialty ([place]) [phone] [facility] [phone] [facility] [phone] [place] [phone] Bedside Delivery ([facility]) [phone] documented in this encounter [facility] 03-02-2024 History of Present illness Narrative [...] del of broth Contact Info: Specialty ([place]) [phone] [facility] [phone] [facility] [phone] [place] [phone] Bedside Delivery ([facility]) [phone] [facility] OUTREACH ADVANCED: Call Information: Date and Time of Contact: 03/02/2024 3:49 PM Method of Contact: By Phone Contact Type: Prescriptions Contactor: [facility] Contactee: Patient Contact Outcome: Left message and Follow-up Shipping/Pickup: Medication Name: Myco 360mg and Prograf 0.2mg Contact Info: Specialty ([place]) [phone] [facility] [phone] [facility] [phone] [place] [phone] Bedside Delivery ([facility]) [phone] [facility] OUTREACH ADVANCED: Call Information: Date and Time of Contact: 03/02/2024 4:08 PM Method of Contact: By Phone Contact Type: Prescriptions Contactor: [facility] Contactee: Patient Shipping/Pickup: Medicare B Refill?: No Medication Name: Myco 360 / prograf 0.2 Delivery Method: Ship Delivery Location: Home Signature Required: No Receive/Pickup Date: 03/03/2024 Shipping Address: [address] [place] [address] [address] Contact Info: Specialty ([place]) [phone] [facility] [phone] [facility] [phone] [place] [phone] Bedside Delivery ([facility]) [phone] documented in this encounter [facility] 02-26-2024 History of Present illness Narrative [...] to the HF Clinic at the [facility] on 02/26/2024 for initial evaluation of heart [...] Left; Surgeon: Jyoti Bryant MD, PhD; Location: [facility] MAIN OR PLACEMENT NEPHROSTOMY CATHETER PERCUTANEOUS W/ IMAGE GUIDANCE 05/17/2022 Surgeon: Enzo Heart DO; Location: [facility] INTERVENTIONAL RADIOLOGY (VIR) LIVER TRANSPLANT, ORTHOTOPIC N/A 04/12/2020 Laterality: N/A; Surgeon: LU Palma; Location: [facility] SAME DAY SURGERY MAIN OR KIDNEY TRANSPLANT W/O [place] NEPHRECTOMY N/A 04/12/2020 Laterality: N/A; Surgeon: LU Palma; Location: [facility] SAME DAY SURGERY MAIN OR OTHER SURGICAL [...] qd Antithrombotic: no Statin: no ICD: NA SUPERVISOR TOY PARTS FORMER: NA CV Test results: ECHOCARDIOGRAM 01/18/2024 (Final) Interpretation Summary Left Ventricle: Chamber size is normal. Increased wall thickness. Concentric hypertrophy. Normal global systolic function. Regional wall motion is normal. Ejection fraction is normal (55 - 60%). Right Ventricle: Chamber size is normal. Systolic function is low normal. No hemodynamically significnat valve disease. Moderate pericardial effusion. There is no evidence of tamponade. [facility] (01/20/24) Hemodynamic Summary: Baseline Hemodynamics Systemic BP [...] will be BP control. Candie Almaguer M.D. paver installer Advanced Heart Failure Program Division of Cardiovascular Medicine [facility] [email or web address] [phone] fax [phone] documented in this encounter [facility] 02-26-2024 Instructions Marsha Mckeon RN - 02/26/2024 9:30 AM EDT The following instructions were given today: Labs today Follow up with Dr. Almaguer as needed. Your after visit summary (AVS) is viewable in [facility] My Chart. Call RN if you have cardiac questions/concerns M-F 8 to 4:30 ; office # [phone], option 6, then option 2. Guidelines for home management: 1. Continue to monitor weight first thing each morning. 2. Report to the CHF CLINIC ([phone]) any significant weight change. Remember that weight [...] to have labs/tests run outside of the [facility] and you do not hear from us 1-2 days after they are performed, you must call us to ensure we received the results. Office fax # [phone]. No news does not necessarily mean that your tests are normal, it could mean we did not get the results. For questions/updates: please provide your name with spelling, date of and question or update All calls are prioritized and responses researched, if possible, prior to calls being returned. Call Scheduling for any appointment/procedure verification or changes [phone], option 7 or [facility] Heart Schedulers at [phone], option 1. documented in this encounter [facility] 01-23-2024 Nurse Note Jakob wrap & [...] understanding on picking up needed prescriptions at [facility] as listed on discharge summary. Patient denies any unanswered questions at this time. Patient has been discharged with all of their belongings, transported via wheelchair on oxygen to front entrance for brother to transport home on home oxygen supply. [facility] 01-23-2024 Miscellaneous Notes Jakob wrap & [...] understanding on picking up needed prescriptions at [facility] pharmacy as listed on discharge summary. Patient [...] Pain): verbalization of pain descriptors George Styles ([id number]) PRE OPERATIVE DIAGNOSIS High output congestive heart failure [I50.83] POST OPERATIVE DIAGNOSIS Post-Op Diagnosis Codes: * High output congestive heart failure [I50.83] PROCEDURE PERFORMED Procedure(s) (LRB): LIGATION ANGIOACCESS AVF (Left) Resection of large aneurysmic vein PRIMARY CLOSURE Yes INTRAOPERATIVE FINDINGS No significant abnormalities SURGEON Surgeons and Role: * yJoti Bryant MD, PhD - Primary ANESTHESIOLOGIST Anesthesiologist: Celena Tiwari MD; Kehinde Gutierrez MD NET SORTER: David Jasso APRN-NET SORTER Painter Rough Assisting: Mini Khan MD SURGICAL STAFF Respiratory Technician: Zoila Lawrence RN Relief Respiratory Technician: Marimar Saravia RN Relief Scrub: Briseyda [...] patient breathing easily. Report received from surgical training specialist and report received from anesthesiology. Pt arrived [...] Axillary block. SURGEON(S): Jyoti Bryant MD, PHD RESERVATIONS AGENT: Mynor Fall MD ESTIMATED BLOOD LOSS: Minimal. [...] Jyoti Bryant MD, PHD ATTENDING SHANNON/Constanza JOB: [id number] DOC: [id number] Patient has been asleep this shift. He [...] overnight coverage, Jasper Gastelum MD, via pager #[phone] Pt- Mark. Sarah Styles 1082. TM1. Was wondering if he can have his Melatonin order increased to 6mg. Per pt, he usually takes 8mg at home. -SAMI Duffy #[phone] Tati Charles RN Internal Medicine Daily Progress Note Patient: George Styles, 1970, [id number] Physician: Arelis Mera MD, PGY3, Pager #[phone], TM1 service Assessment/Plan: George Styles is a [...] home amlodipine 5mg CAD: non-obstructive CAD on [facility] 2018. - continue home aspirin 81mg [...] Mera MD Mr. Styles was admitted to [address] [place] [address]. On admission to [facility], from outside facility a dual RN initial assessment of skin condition was performed by Izzy Gutierrez RN and Leroy Singleton RN. Skin Assessment: Skin within defined limits:Yes Jose Score: 20 Wound Vision Manager Photo images obtained: No LDA Added: No Based [...] station when available. documented in this encounter [facility] 01-23-2024 Nurse Note Home Oxygen Qualification [...] at 4L of oxygen is also required.) [facility] 01-23-2024 History of Present illness Narrative [...] mg Oral Daily Kelvin Pacheco MD, MBBS applied psychology professor Transplant nephrology Surgery Post-Op Check Note [...] monitor Leonel Harris DO General Surgery Pager [phone] CM went to bedside to talk with patient. Patient states he has home oxygen through [employer]. He uses 2.5 LNC around the clock. Patient states his brother will bring a tank for discharge. Anticipate patient will discharge tomorrow AM. Brother updated. Girish Oro RN, BSN Clinical High School Professional Please note that I am a float corrections caseworker and may not cover the same service every day. Please call the main Case Management office at [phone] for up-to-date coverage. Verified patients identity using [...] Daily Progress Note Patient: George Styles, 1970, [id number] Physician: Yury Ozuna MD, PGY1, Pager #[phone], TM1 service Assessment/Plan: George Styles is a [...] by transplant surgery on 01/22 ([place] at [place], updated type & screen) S/p Liver-Kidney Transplant [...] home amlodipine 5mg CAD: non-obstructive CAD on [facility] 2018. - continue home aspirin 81mg [...] with the Nutrition plan outlined in the Printer Assistant s note. DVT prophylaxis with lovenox Diet DIET HEART HEALTHY - 4 GM SODIUM Disposition: home pending clinical improvement and evaluation Code status is Full Code Discussed with team and attending, Kelvin aPcheco MD, MBBS , on rounds. Signed, Yury [...] in resident note. Kelvin Pacheco MD, MBBS applied psychology professor Transplant nephrology Patient seen and examined [...] Oral BID AC Kelvin Pacheco MD, LU applied psychology professor Transplant nephrology Images from the original note were not included. Internal Medicine Daily Progress Note Patient: George Styles, 1970, [id number] Physician: Yury Ozuna MD, PGY1, Pager #[phone], TM1 service Assessment/Plan: George Styles is a [...] home amlodipine 5mg CAD: non-obstructive CAD on [facility] 2018. - continue home aspirin 81mg [...] with the Nutrition plan outlined in the Printer Assistant s note. DVT prophylaxis with lovenox [...] Day Supply: 90 Refills: 0 Provider: Zuly rBuno NP [facility]: [facility] Other Comments: Patient reported his Last Home Dose of mycophenolate and tacrolimus was on 01/15/24 at 0700. Medications that need removed from Outside Medication Reconciliation list: Please remove all medications. Please feel free to contact me with any further questions. Name: Heidy Chatman Phone #: [phone] Date/Time: 01/19/2024 12:08 PM Time Spent: 15 minutes Electronically signed by Fidelina Alarcon [facility] at 01/19/2024 12:41 PM EST Associated attestation - Fidelina Alarcon [facility] [place] - 01/19/2024 12:41 PM EST Department of Pharmacy Admission Medication Reconciliation Note Patient: George Styles Room/Bed: 1082/A I have reviewed the home medication list with the Automotive Mechanic. The home medication list status is: complete. All changes to the home medication list have been updated in [facility]. Updated CAR PICK UP DRIVER Med List: Prior to Admission Medications [...] with any further questions. Name: Fidelina Alarcon [facility] [place] Phone #: [phone] Date/Time: 01/19/2024 12:41 PM Internal Medicine Daily Progress Note Patient: George Styles, 1970, [id number] Physician: Yury Ozuna MD, PGY1, Pager #[phone], TM1 service Assessment/Plan: Acute Hypoxic Respiratory Insufficiency [...] home amlodipine 5mg CAD: non-obstructive CAD on [facility] 2018. - continue home aspirin 81mg [...] with the Nutrition plan outlined in the Printer Assistant s note. DVT prophylaxis with lovenox [...] Device: nasal cannula (01/19/24899) Flow (L/min): 2 (01/19/24 09) Gen: NAD [...] mg Oral Daily Kelvin Pacheco MD, MBBS applied psychology professor Transplant nephrology Internal Medicine Daily Progress Note Patient: George Styles, 1970, [id number] Physician: Yury Ozuna MD, PGY1, Pager #[phone], TM3 service Assessment/Plan: Updates: - continued diuresis with [...] home amlodipine 5mg CAD: non-obstructive CAD on [facility] 2018. - continue home aspirin 81mg [...] with the Nutrition plan outlined in the Printer Assistant s note. DVT prophylaxis with lovenox [...] in resident note. Kelvin Pacheco MD, MBBS applied psychology professor Transplant nephrology Pt known to fixed wing pilot from previous admissions. Provided emotional and spiritual support. Patient shared about: family support, medical course Cost Clerk provided: - Supportive presence - Active listening - Validation of feelings/emotions Patient encouraged to request a fixed wing pilot as needed. Chaplains are available in-house 24 hours a day and 7 days a week. For urgent matters in [facility], please page [phone]. If the request is not urgent, please enter a consult. Consults are responded to within 24 hours. Senior Staff Cost Clerk Angie Singh Mdiv, [facility] [phone] [email or web address] On-call : rn call center David: 22/06 Pager ,[facility], and Brock Maciel Pager [phone] 01/18/24 1342 Clinical Encounter Type Visited With Patient Visit Type Introduction Pastoral Time Spent 15 min Referral Other (See Comment) (rounding) Spiritual Assessment Emotional Observation Coping well;Anxiety Hope Observation Specific hope focus Support Observation By Family Interventions Provided Active listening;Supportive presence Facilitated Verbalization of feelings;Identifying support system;Identifying Sources of spiritual well-being Explored Expectations;Treatment decisions Bacon Stringer Education Bacon Stringer Service Available Yes Educated Patient Outcomes Patient [...] for any potential drug interaction. Name: Fidelina Alracon RPH Phone #: [phone] Date/Time: 01/18/2024 9:56 AM Discharge Planning Patient [...] Yes Name and Contact information: Gian Jensen ([phone]) Would you like to add additional adult [...] Is the patient from a facility or alf?: No Patient lives with: Alone Living Environment: [...] oxygen?: Yes Oxygen Provider and Contact : HomeTouch Liter-Flow?: Order for oxygen use?: unknown at [...] patient on Anticoagulation? : No [facility] [id number] - [place] [address] - [address] [phone] Health Careers Instructor Does the patient or admitting representative express financial concerns? : No Employed?: Disabled Coping/Stress Concerns about patient s coping and stress?: No Concerns about patient s caregiver s coping and stress?: No Values and Beliefs Cultural or jewish practices that may impact discharge planning and/or [...] Plan 1. 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 2. Confirmed and updated demographics and treatment team. 3. High School Professional will continue to follow with medical team for any other additional discharge needs. Kasandra DON RN [facility] [phone] *Please note I am float CM and work Thursday and Thursday every other week. Please call [phone] for assist in my absence. Internal Medicine Daily Progress Note Patient: George Styles, 1970, [id number] Physician: Yury Ozuna MD, PGY1, Pager #[phone], PF3 service Assessment/Plan: Updates: - continue diuresis with [...] home amlodipine 5mg CAD: non-obstructive CAD on [facility] 2018. - continue home aspirin 81mg [...] Finally, ordered 2D echo. Kevin Prince MD, SERA Plastic Cutter of Clinical Medicine [facility] documented in this encounter [facility] 01-23-2024 Plan of care note Patient [...] Symptoms (Acute Pain): verbalization of pain descriptors [facility] 01-22-2024 Hospital Discharge instructions Arelis Mera [...] your doctor for further instructions. Please call [phone], Option 1 or [phone] to schedule your appointment with the Heart Failure Clinic. Arelis Mera MD - 01/22/2024 3:08 PM EST You can change your dressing 48 hours from the procedure The following attachments cannot be sent through Care Everywhere.Heart Failure: Avoiding Triggers (Guatemalan)Heart Failure: Limiting Sodium (Guatemalan)Pain and Pain Control ([facility]) (Guatemalan)documented in this encounter [facility] 01-22-2024 Surgery Postoperative evaluation and management note George Styles ([id number]) PRE OPERATIVE DIAGNOSIS High output congestive heart failure [I50.83] POST OPERATIVE DIAGNOSIS Post-Op Diagnosis Codes: * High output congestive heart failure [I50.83] PROCEDURE PERFORMED Procedure(s) (LRB): LIGATION ANGIOACCESS AVF (Left) Resection of large aneurysmic vein PRIMARY CLOSURE Yes INTRAOPERATIVE FINDINGS No significant abnormalities SURGEON Surgeons and Role: * Jyoti Bryant MD, PhD - Primary ANESTHESIOLOGIST Anesthesiologist: Celena Tiwari MD; Kehinde Gutierrez MD NET SORTER: David Jasso APRN-NET SORTER Painter Rough Assisting: Mini Khan MD SURGICAL STAFF Respiratory Technician: Zoila Lawrence RN Relief Respiratory Technician: Marimar Saravia RN Relief Scrub: Briseyda Self Scrub Person: Cinda Mai RN Resident Assisting: Leonel Harris DO Fellow: Miki Mcgowan MD, MBBS COMPLICATIONS None ESTIMATED BLOOD LOSS Minimal SPECIMENS No specimen sent * No specimens in log * Jyoti Bryant MD, PhD January 22, 2024 1:[address] [facility] Work Phone: 01-22-2024 Nurse Note Arrived to PACU assisted by anesthesiology. Connected to monitors. Turned side to side, OR linens removed, repositioned. Airway patent, patient breathing easily. Report received from surgical training specialist and report received from anesthesiology. Pt arrived awake. VSS. Sats slightly low. Pulm rehab used. Sats currently 3lpm @ 93%. Pt states he uses CPAP nocturnally. A&Ox4. Nerve block left arm, elevated. [facility] 01-22-2024 Surgery Postoperative evaluation and management [...] Axillary block. SURGEON(S): Jyoti Bryant MD, PHD RESERVATIONS AGENT: Mynor Fall MD ESTIMATED BLOOD LOSS: Minimal. [...] Jyoti Bryant MD, PHD ATTENDING SHANNON/Constanza JOB: [id number] DOC: [id number] [facility] 01-22-2024 Plan of care note Patient [...] 1939 Plan Of Care Reviewed With: patient [facility] 01-20-2024 Consult note Associated Order (s): IP CONSULT TO SURGERY - TRANSPLANT (RENAL) Images from the original note were not included. TRANSPLANT SURGERY CONSULT NOTE: Consult: 01/20/2024, 4:03 PM Loan Underwriter: Starla Morris MD Reason for Consult: Requesting Dr Carson Bryant for AVF revision/closure given new onset high output heart failure George Styles is a 53 y.o. male CURRENT HOSPITALIZATION LOS: Admit Date: 01/16/2024 [facility] Hospital LOS: 4 days George [...] 05/17/2022 Surgeon: Enzo Heart DO; Location: [facility] INTERVENTIONAL RADIOLOGY (VIR) LIVER TRANSPLANT, ORTHOTOPIC N/A 04/12/2020 Laterality: N/A; Surgeon: LU Palma; Location: [facility] SAME DAY SURGERY MAIN OR KIDNEY TRANSPLANT W/O EASTERN SHOSHONE NEPHRECTOMY N/A 04/12/2020 Laterality: N/A; Surgeon: LU Palma; Location: [facility] SAME DAY SURGERY MAIN OR OTHER SURGICAL [...] Studies: Labs-CBC: WBC/Hgb/Hct/Plts: 3.79/12.5/38.9/166 (01/20 611) Labs-Chem 7([facility]): Bun/Creat/Cl/CO2/Glucose: 15/1.12/105/28/88 (01/20 611) Na/K+/Phos/Mg/Ca: 141/3.8/--/1.6/-- [...] seen and staffed with Dr. Mcgowan fellow occupational health physiotherapist Thank you, Starla Morris MD Associated attestation - Jyoti Bryant MD, PhD - 01/22/2024 10:54 AM EST I. Jyoti Bryant MD, PhD, have independently seen and examined the patient, reviewed the labs, discussed the patient with the fellow/resident and agree with the note. [facility] Work Phone: 01-20-2024 Consult note Associated Order (s): IP CONSULT TO SURGERY - TRANSPLANT (RENAL) Images from the original note were not included. TRANSPLANT SURGERY CONSULT NOTE: Consult: 01/20/2024, 4:03 PM Loan Underwriter: Starla Morris MD Reason for Consult: Requesting Dr Carson Bryant for AVF revision/closure given new onset high output heart failure George Styles is a 53 y.o. male CURRENT HOSPITALIZATION LOS: Admit Date: 01/16/2024 [facility] Hospital LOS: 4 days George [...] 05/17/2022 Surgeon: Enzo Heart DO; Location: [facility] INTERVENTIONAL RADIOLOGY (VIR) LIVER TRANSPLANT, ORTHOTOPIC N/A 04/12/2020 Laterality: N/A; Surgeon: LU Palma; Location: [facility] SAME DAY SURGERY MAIN OR KIDNEY TRANSPLANT W/O EASTERN SHOSHONE NEPHRECTOMY N/A 04/12/2020 Laterality: N/A; Surgeon: LU Palma; Location: [facility] SAME DAY SURGERY MAIN OR OTHER SURGICAL [...] mg Oral Once per day on Thursday iTmothy Joseph MD 0.2 mg at 01/19/24 0858 [...] Studies: Labs-CBC: WBC/Hgb/Hct/Plts: 3.79/12.5/38.9/166 (01/20 611) Labs-Chem 7([facility]): Bun/Creat/Cl/CO2/Glucose: 15/1.12/105/28/88 (01/20 611) Na/K+/Phos/Mg/Ca: 141/3.8/--/1.6/-- [...] seen and staffed with Dr. Mcgowan fellow occupational health physiotherapist Thank you, Starla Morris MD Associated attestation - Jyoti Bryant MD, PhD - 01/22/2024 10:54 AM EST IRomaine Bryant MD, PhD, have independently seen and examined the patient, reviewed the labs, discussed the patient with the fellow/resident and agree with the note. Associated Order(s): IP CONSULT TO HEPATOBILIARY [facility] Main Hepatology Consult WebExchange --> IM Consult Serv [facility] --> [facility] Main Hepatology consult service [...] 0.5 mg BID and Mycophenolate 360 mg . He followed up with transplant ID on [...] DAY SURGERY MAIN OR KIDNEY TRANSPLANT W/O EASTERN SHOSHONE NEPHRECTOMY N/A 04/12/2020 Laterality: N/A; Surgeon: LU [...] (order for outpatient) Please SecureChat or Call ([phone]) for any questions. Await attending attestation for final recommendations. Hank Noel MD Division of Gastroenterology, Hepatology, and Nutrition Clinical Fellow, PGY-5 Pager: [phone] For urgent/stat calls or consults 5pm to 7am, please page the on-call GI fellow on [employer]. [facility]--> Internal Medicine--> Gastroenterology, Hepatology, & Nutrition--> 1st Call Fel Alysia For urgent/stat calls or consults 7am to 5pm during the weekend, please page the on-call GI fellow on QGenda. [facility]--> Internal Medicine--> Gastroenterology, Hepatology, & Nutrition--> All Hep & East Wknd Cons Fel Day For follow up questions regarding this patient 7am to 5pm during the weekday, contact the Hepatology consults fellow or CARLOS A on Mesh [employer]. [facility]--> Internal Medicine--> Gastroenterology, Hepatology, & Nutrition--> All Hep Consult Fel Day OR Transplant Hep Consults CARLOS A Day Associated attestation - Michael Estrada MD, MBBS - 01/19/2024 8:32 AM EST ATTENDING STATEMENT: [...] Estrada MD, MSc documented in this encounter [facility] 01-19-2024 Nurse Note 01/19/24 0900 Vitals [...] rest, 95-96% when talking/moving. Paulette Cordon RN [facility] 01-19-2024 Nurse Note Paged overnight coverage, Jasper Gastelum MD, via pager #[phone] Pt- George Styles. Smith 1082. TM1. Was wondering if he can have his Melatonin order increased to 6mg. Per pt, he usually takes 8mg at home. -SAMI Duffy #[phone] Tati Charles RN [facility] 01-18-2024 Consult note Associated Order (s): IP CONSULT TO HEPATOBILIARY [facility] Main Hepatology Consult WebExchange --> IM Consult Serv [facility] --> [facility] Main Hepatology consult service Fellow HEPATOLOGY [...] drinking a lot of water. On arrival (2/17), vitals were 97.8, 56, 137/65, 15 satting [...] 05/17/2022 Surgeon: Enzo Heart DO; Location: [facility] INTERVENTIONAL RADIOLOGY (VIR) LIVER TRANSPLANT, ORTHOTOPIC N/A 04/12/2020 Laterality: N/A; Surgeon: LU Palma; Location: [facility] SAME DAY SURGERY MAIN OR KIDNEY TRANSPLANT W/O EASTERN SHOSHONE NEPHRECTOMY N/A 04/12/2020 Laterality: N/A; Surgeon: LU Palma; Location: [facility] SAME DAY SURGERY MAIN OR OTHER SURGICAL [...] (order for outpatient) Please SecureChat or Call ([phone]) for any questions. Await attending attestation for final recommendations. Hank Noel MD Division of Gastroenterology, Hepatology, and Nutrition Clinical Fellow, PGY-5 Pager: [phone] For urgent/stat calls or consults 5pm to 7am, please page the on-call GI fellow on [employer]Vital Systemsa. [facility]--> Internal Medicine--> Gastroenterology, Hepatology, & Nutrition--> 1st Call Fel Alysia For urgent/stat calls or consults 7am to 5pm during the weekend, please page the on-call GI fellow on QGenda. [facility]--> Internal Medicine--> Gastroenterology, Hepatology, & Nutrition--> All Hep & East Wknd Cons Day For follow up questions regarding this patient 7am to 5pm during the weekday, contact the Hepatology consults fellow or CARLOS A on QGenda. [facility]--> Internal Medicine--> Gastroenterology, Hepatology, & Nutrition--> All [...] for outpatient) Michael Estrada MD, MSc [facility] Work Phone: 01-16-2024 Plan of care note Internal Medicine Daily Progress Note Patient: George Styles, 1970, [id number] Physician: Arelis Mera MD, PGY3, Pager #[phone], TM5 service Assessment/Plan: George Styles is a 53 [...] home amlodipine 5mg CAD: non-obstructive CAD on [facility] 2018. - continue home aspirin 81mg [...] MD, on rounds. Signed, Arelis Mera MD [facility] 01-16-2024 Nurse Note Mr. Styles was admitted to [address] [place] [address]. On admission to 0, from outside facility a dual RN initial assessment of skin condition was performed by Izzy Gutierrez RN and Leroy Singleton RN. Skin Assessment: Skin within defined limits:Yes Jose Score: 20 Wound Vision Manager Photo images obtained: No LDA Added: No Based [...] room closest to nurses station when available. [facility] 01-16-2024 History and physical note Images from the original note were not included. Internal Medicine Admission History & Physical Patient: George Styles, 1970, [id number] Physician: Timothy Joseph MD, PGY1, Pager #[phone], TM 1 service Date of face to [...] Laterality: N/A; Surgeon: LU Palma; Location: [facility] SAME DAY SURGERY MAIN OR KIDNEY TRANSPLANT W/O EASTERN SHOSHONE NEPHRECTOMY N/A 04/12/2020 Laterality: N/A; Surgeon: LU Palma; Location: [facility] SAME DAY SURGERY MAIN OR OTHER SURGICAL [...] itraconazole Fax results to: Dr. White - [phone] Transplant Neph - [phone] Gabapentin 400 MG capsule Sig: Take 1 [...] erythema: Skin: No jaundice or rash Neuro: pediatric orthodontist 3-7, 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 Strength grossly equal in muscle groups of the bilateral UEs and LEs. Psych: Ox3, appropriate affect and cognition Data Review: Additional Labs: Imaging: ECG Impression/Plan: George Sytles is a 53 y.o. male with a [...] home amlodipine 5mg CAD: non-obstructive CAD on [facility] 2018. - continue home aspirin 81mg daily Gout: continue home allopurinol 200mg daily BPH: continue home flomax 0.4mg daily Complexity. Obesity Body mass index is 32.8 kg/m . - Follow with PCP for dietary and lifestyle modifications. Any conditions listed below are present on admission unless otherwise specified. . DVT prophylaxis with lovenox Disposition: admitted to [facility] Code status is Full Staffed with Dr. [...] Pierson, Luisa Steven, Renee Rivera, Daisha Max Spring Crater: José Miguel Garnica All Txt: 04/13/2020 (Kidney), [...] results found for: CYCLOSPORIN , CYCLOSPORIN2 , [id number] , CYCLORAND No results found for: SIROLIMUS [...] request in chart. Kevin Prince MD Pager [phone] [facility] 01-16-2024 History and physical note Images from the original note were not included. Internal Medicine Admission History & Physical Patient: George Styles, 1970, [id number] Physician: Timothy Joseph MD, PGY1, Pager #[phone], TM 1 service Date of face to [...] 05/17/2022 Surgeon: Enzo Heart DO; Location: [facility] INTERVENTIONAL RADIOLOGY (VIR) LIVER TRANSPLANT, ORTHOTOPIC N/A 04/12/2020 Laterality: N/A; Surgeon: LU Palma; Location: [facility] SAME DAY SURGERY MAIN OR KIDNEY TRANSPLANT W/O EASTERN SHOSHONE NEPHRECTOMY N/A 04/12/2020 Laterality: N/A; Surgeon: LU Palma; Location: [facility] SAME DAY SURGERY MAIN OR OTHER SURGICAL [...] itraconazole Fax results to: Dr. White - [phone] Transplant Neph - [phone] Gabapentin 400 MG capsule Sig: Take 1 [...] erythema: Skin: No jaundice or rash Neuro: pediatric orthodontist 3-7, 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 Strength grossly [...] home amlodipine 5mg CAD: non-obstructive CAD on [facility] 2018. - continue home aspirin 81mg daily Gout: continue home allopurinol 200mg daily BPH: continue home flomax 0.4mg daily Complexity. Obesity Body mass index is 32.8 kg/m . - Follow with PCP for dietary and lifestyle modifications. Any conditions listed below are present on admission unless otherwise specified. . DVT prophylaxis with lovenox Disposition: admitted to [facility] Code status is Full Staffed with Dr. [...] Pierson, Luisa Steven, Renee Rivera, Daisha Max [place] Crater: José Miguel Garnica All Txt: 04/13/2020 (Kidney), [...] results found for: CYCLOSPORIN , CYCLOSPORIN2 , [id number] , CYCLORAND No results found for: SIROLIMUS [...] request in chart. Kevin Prince MD Pager [phone] documented in this encounter [facility] 01-12-2024 History of Present illness Narrative [...] Prograf 0.2 MG Contact Info: Specialty ([place]) [phone] [facility] [phone] [facility] [phone] [facility] [phone] Bedside Delivery ([facility]) [phone] [facility] OP RX OUTREACH ADVANCED: Call Information: Date and Time of Contact: 01/25/2024 10:23 AM Method of Contact: By Phone Contact Type: Prescriptions Contactor: [facility] OP Contactee: Patient Contact Outcome: Left message (prograf myco) Contact Info: Specialty ([place]) [phone] [facility] [phone] [facility] [phone] [facility] [phone] Bedside Delivery ([facility]) [phone] documented in this encounter [facility] 01-12-2024 History of Present illness Narrative [...] Prograf 0.2 MG Contact Info: Specialty ([place]) [phone] [facility] [phone] [facility] [phone] David [phone] Bedside Delivery ([facility]) [phone] [facility] OP RX OUTREACH ADVANCED: Call Information: Date and Time of Contact: 01/25/2024 10:23 AM Method of Contact: By Phone Contact Type: Prescriptions Contactor: [facility] OP Contactee: Patient Contact Outcome: Left message (prograf myco) Contact Info: Specialty ([place]) [phone] [facility] [phone] [facility] [phone] David [phone] Bedside Delivery ([facility]) [phone] [facility] OP RX OUTREACH ADVANCED: Call Information: Date and Time of Contact: 01/27/2024 10:19 AM Method of Contact: By Phone Contact Type: Prescriptions Contactor: [facility] OP Contactee: Patient Contact Outcome: Left message (myco prograf) Contact Info: Specialty ([place]) [phone] [facility] [phone] [facility] [phone] David [phone] Bedside Delivery ([facility]) [phone] documented in this encounter [facility] 01-12-2024 History of Present illness Narrative [...] Prograf 0.2 MG Contact Info: Specialty ([place]) [phone] [facility] [phone] [facility] [phone] David [phone] Bedside Delivery ([facility]) [phone] [facility] OP RX OUTREACH ADVANCED: Call Information: Date and Time of Contact: 01/25/2024 10:23 AM Method of Contact: By Phone Contact Type: Prescriptions Contactor: [facility] OP Contactee: Patient Contact Outcome: Left message (prograf myco) Contact Info: Specialty ([place]) [phone] [facility] [phone] [facility] [phone] [facility] [phone] Bedside Delivery ([facility]) [phone] [facility] OP RX OUTREACH ADVANCED: Call Information: Date and Time of Contact: 01/27/2024 10:19 AM Method of Contact: By Phone Contact Type: Prescriptions Contactor: [facility] OP Contactee: Patient Contact Outcome: Left message (myco prograf) Contact Info: Specialty ([place]) [phone] [facility] [phone] [facility] [phone] [facility] [phone] Bedside Delivery ([facility]) [phone] [facility] OP RX OUTREACH ADVANCED: Call Information: Date and Time of Contact: 02/01/2024 3:22 PM Contact Type: Prescriptions Contactor: [facility] OP Contactee: Patient Contact Outcome: Left message Shipping/Pickup: Medication Name: Mycophenolate 360mg and Prograf 0.2mg Pack Contact Info: Specialty ([place]) [phone] Jakob [phone] [facility] [phone] David [phone] Bedside Delivery ([facility]) [phone] documented in this encounter [facility] 01-06-2024 History of Present illness [...] The neurologist wanted to send him to [facility] neurology but it is out of [...] pt to see neurologist in [facility] Immunocompromised ([facility]) Hypertension ([facility]) No change in meds Check echo Relevant Orders Echocardiogram 2D complete Bilateral lower extremity edema Relevant Orders Echocardiogram 2D complete Shortness of breath Check ECHO Relevant Orders Echocardiogram 2D complete Other Visit Diagnoses 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) Atherosclerosis 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) documented in this encounter [facility] 10-06-2023 History of Present [...] ; Prograf 0.2 MG Contact Info: Specialty ([place]) [phone] [facility] [phone] [facility] [phone] [facility] [phone] Bedside Delivery ([facility]) [phone] [facility] OP RX OUTREACH ADVANCED: Call Information: Date and Time of Contact: 10/23/2023 2:00 PM Method of Contact: By Phone Contact Type: Prescriptions Contactor: [facility] OP Contactee: Patient Contact Outcome: Left message and Call back later Shipping/Pickup: Medication Name: Mycophenolate 360mg and Prograf 0.2mg Contact Info: Specialty ([place]) [phone] [facility] [phone] [facility] [place] [phone] [facility] [phone] Bedside Delivery ([facility]) [phone] documented in this encounter [facility] 09-11-2023 Miscellaneous Notes Pt discharged home [...] the oxygen during the night. pt will cone picker his oxygen from [employer] supply, 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 This RN [...] Patient seen ambulating in the gallo with MANAGER RADIATION. Patient was mildly short of breath on [...] & HR 114. Messaged Mainor Loomis, via SwitchForce secure chat, Temp 100.8. His tylenol order [...] period of time. 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 Episode of [...] Critical Care Medicine Message Mainor Loomis, via SwitchForce secure chat, Good evening, just an FYI, [...] period of time. 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 This morning, [...] [address] Loera here also (journeyman operator assistant) Dr. Diaz aware of pt's increased oxygen [...] regular sleep/rest pattern promoted Sent a secure SwitchForce chat to Rosi LUZ concerning patient's temp [...] care. Outcome: Progressing Toward Goal Flowsheets (Taken 08/29/20231045) Anxiety/Fear Reduction: making progress toward outcome I [...] PGY-2 Mr. Styles was admitted to [address] [place] [address]. On admission to [facility], from home a [...] when available. documented in this encounter [facility] 09-11-2023 History of Present illness Narrative Provided follow-up emotional and spiritual support. Patient shared about rosemary of discharge and looking forward to seeing family Cost Clerk provided: - Supportive presence - Active listening - Validation of feelings/emotions Patient encouraged to request a fixed wing pilot as needed. Chaplains are available in-house 24 hours a day and 7 days a week. For urgent matters in [facility], please page [phone]. If the request is not urgent, please enter a consult. Consults are responded to within 24 hours. Senior Staff Cost Clerk Angie Singh Mdiv, [facility] [place] [phone] [email or web address] 22/06 On-call Kirk: [phone] 22/06 Pager ,APOORVA, and Brock Maciel Pager [phone] 09/11/23 1430 Clinical Encounter Type Visited With Patient Visit Type Follow-up Pastoral Time Spent 15 min Referral Other (See Comment) (rounding) Spiritual Assessment Spiritual Observation Spirituality helpful Emotional Observation Coping well Hope Observation Specific hope focus Support Observation By Family Interventions Provided Active listening;Supportive presence Facilitated Verbalization of feelings Explored Expectations Bacon Stringer Education Bacon Stringer Service Available Yes Educated Patient Plan of Care Continue Visiting PRN Images from the original note were not included. [facility] ([facility] Note: Non-Verbal Med Rec [facility] received the following discharge prescription(s): Total cost is $0. I have reviewed the Discharge Rx Reconciliation Report. The discharge prescription(s) will be delivered to the patient on 09/11/2023. Dimitrios Gurrola RPh,PharmD Specialty ([place]) [phone] [facility] [phone] [facility] Bedside Delivery [phone] [facility] [place] [phone] [facility] [place] Bedside Delivery [phone] [facility] [phone] [facility] Bedside Delivery [phone] [place] [phone] [place] [phone] Internal Medicine Daily Progress Note Patient: George Styles, 1970, [id number] Physician: Evan Kelly MD, PGY-1, TM1 service Subjective/Interval History: Patient continues to require oxygen overnight for desaturations. With insurance limitations, only accepting agency to provide home oxygen backed out. After calling them to discuss, Lynn stated she would be willing to have patient drive to their facility to cone picker supplies, however they close at 5pm. [...] bed without shortness of breath. 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 His confed[place] coos kidney disease was noted to be presumed [...] losartan 50mg BID CAD: non-obstructive CAD on [facility] 2018. - continue home aspirin 81mg [...] 5.05 (H) 11/19/2018 Kevin Prince MD, MADISONN Plastic Cutter of Clinical Medicine [facility] Images from the original note were not included. Final Discharge Planning and Transportation Final Discharge Planning Discharge Disposition: Home Services at Discharge: Outpatient clinical services (ie: lab draws, transfusions, injectables) (Home Oxygen by [facility]) Selected Continued Care - Admitted Since 08/28/2023 Durable Medical Equipment Coordination complete. 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 Addendum [phone] [facility] notified this CM they are out of patient's insurance area and will not be able to service this patient at time of discharge. Provider notified. Addendum [phone] Dr Kelly called [employer] spoke to Lynn and she said they are willing to accept patient if the patient would drive to the [place] office and cone picker the supplies. Patient is willing to [...] Lora Colón RN, MSN, CCM, CMCN Clinical High School Professional- [facility] Transplant #[phone] Department of Pharmacy Transplant Note Patient: George [...] dose adjustment Name: Matt Kramer RPh,Frankie Phone: [phone] Date/Time: 09/10/2023 11:33 AM This CM sent referral via Aidin for O2 concentrator to 4 agencies Start date today Timer set for 1330 [facility] [employer] Addendum 1332 One accepting company reserved in [employer] [address] [place] [address] [place] [address] Lora Colón RN, MSN, CCM, CMCN Clinical High School Professional- [facility] Transplant #[phone] NUTRITION FOLLOW-UP Nutrition Plan of Care: 1. Continue current diet order. 2. No oral supplements warranted at this time. 3. Monitor for significant weight changes. Monitor GI, skin integrity. 4. Monitor and encourage po intakes with goal of average po being 75-100%. 5. accounting technician to follow. ___ Met with patient [...] time. Will continue to monitor. RHIANNON BirminghamR Pager:[phone] Transplant Infectious Disease (Team 3) Progress Note [...] sign off. Please Epic message or page [phone] with questions. Evan White DO Transplant Infectious Diseases Internal Medicine Daily Progress Note Patient: George Styles, 1970, [id number] Physician: Evan Kelly MD, PGY-1, TM1 service [...] clinical situation. 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 His confederated coos kidney disease was noted to be presumed [...] losartan 50mg BID CAD: non-obstructive CAD on [facility] 2019. - continue home aspirin 81mg [...] to follow. Please Epic message or page [phone] with questions. 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 His confederated coos kidney disease was noted to be presumed [...] losartan 50mg BID CAD: non-obstructive CAD on [facility] 2018. - continue home aspirin 81mg daily, holding atorvastatin 20mg daily Gout: continue home allopurinol 200mg daily BPH: continue home flomax 0.4mg daily DVT PPX: SQH Code Status: Full Code Disposition: Pending clinical course. Anticipate eventual discharge home. Discussed with team and attending, Kevin Prince MD, on rounds. 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 His confederated coos kidney disease was noted to be presumed [...] outpt) -will need to adjust IS dosing 2/ itra - Pulmonology consulted - bronchoscopy performed [...] losartan 50mg BID CAD: non-obstructive CAD on [facility] 2018. - continue home aspirin 81mg [...] 5.05 (H) 11/19/2018 Kevin Prince MD, SERA Plastic Cutter of Clinical Medicine [facility] Transplant Infectious Disease [...] to follow. Please Epic message or page [phone] with questions. Ann Marie Haskins MD PGY-4, [...] he continues to improve. Please message via SwitchForce secure chat or page with any questions or concerns. Evan White DO Plastic Cutter Division of Infectious Disease Transplant Infectious Disease [...] to follow. Please Epic message or page [phone] with questions. Evan White DO Transplant Infectious Diseases Images from the original note were not included. Pulmonary/Critical Care Medicine Daily Progress Note Reason for Consultation: bronch for infectious workup Requesting Physician: Dr. Prince CURRENT HOSPITALIZATION: Admit Date: 08/28/2023 [facility] Hospital LOS: 9 days Impression [...] and interpreted reviewed the radiographic data in IHIS/LiveLoophare/careeverywhere. Internal Medicine Daily Progress Note Patient: George Styles, 1970, [id number] Physician: Evan Kelly MD, PGY-1, TM1 service [...] s/p combined Liver-kidney transplant on 04/13/20. His confederated coos kidney disease was noted to be presumed [...] losartan 50mg BID CAD: non-obstructive CAD on [facility] 2018. - continue home aspirin 81mg [...] 5.05 (H) 11/19/2018 Kevin Prince MD, SERA Plastic Cutter of Clinical Medicine [facility] Images from the original note were not included. Pulmonary/Critical Care Medicine Daily Progress Note Reason for Consultation: bronch for infectious workup Requesting Physician: Dr. Prince CURRENT HOSPITALIZATION: Admit Date: 08/28/2023 [facility] Hospital LOS: 8 days Impression [...] and interpreted reviewed the radiographic data in IHIS/Clutch/[place] Realm. Acute Occupational Therapy Evaluation Prior to Admission [...] Assessment: Transfer Assessment: Sit to Stand Transfer Todd Level: Sit->Stand: independent Skilled Intervention/Details: Sit->Stand: x1 from EOB, x1 from toilet Stand to Sit Transfer Todd Level: Stand->Sit: independent Skilled Intervention/Details: Stand->Sit: x1 to toilet, x1 to EOB Functional Mobility: Functional Mobility Todd Level: Functional Mobility/Gait: independent Ambulation Distance (Feet): [...] No Assistance Eatin - No Assistance CURRENT AM-[facility] Activity Raw Score: 21 CURRENT AM-PAC Activity [...] Intact Mobility Assessment: Supine to Sit Mobility Todd Level: Supine->Sit: modified independence Bed Features/Set-up: Supine->Sit: Head of bed elevated Sit to Supine Mobility Todd Level: Sit->Supine: not tested Balance: Sitting Balance [...] environment. Transfer Assessment: Sit to Stand Transfer Todd Level: Sit->Stand: independent Skilled Intervention/Details: Sit->Stand: From EOB x 2 without difficulty. Stand to Sit Transfer Todd Level: Stand->Sit: independent Assistive Device: Stand->Sit: armed chair Skilled Rationale: Verbal cues, Positioning Gait/Functional Mobility: Gait Assessment Todd Level: Gait: stand-by assist Assistive Device: Gait: rollator Ambulation Distance (Feet): 400 Gait Deviations Identified: decreased grace, decreased gait speed Gait Skilled Rationale: verbal, upright posture, increase step length, increase foot clearance Skilled Intervention/Details - Gait: Reasonable foot clearnce without loss of balance but endorsing dyspnea as 6-7/10. Stairs: Stairs Assessment Todd Level: Stair Negotiation: not tested Outcome Score(s): CURRENT [facility] Basic Mobility Inpatient Short Form Turning over in bed: 4 - No Assistance Sitting/standing from chair: 4 - No Assistance Moving from lying on back to sittin - No Assistance Moving to and from bed to chair: 3 - A Little Assistance Walk in hospital room: 3 - A Little Assistance Climbing 3-5 steps with a railin - A Little Assistance CURRENT [facility] Mobility Raw Score: 21 CURRENT [facility] Mobility Functional Limitation/Modifier: 28.97% Currently Impaired [...] Daily Progress Note Patient: George Styles, 1970, [id number] Physician: Evan Kelly MD, PGY-1, TM1 service [...] s/p combined Liver-kidney transplant on 04/13/20. His confed[place] coos kidney disease was noted to be presumed [...] losartan 50mg BID CAD: non-obstructive CAD on [facility] 2018. - continue home aspirin 81mg [...] 5.05 (H) 11/19/2018 Kevin Prince MD, SERA Plastic Cutter of Clinical Medicine [facility] Transplant Infectious Disease [...] to follow. Please Epic message or page [phone] with questions. Evan White DO Transplant Infectious Diseases Images from the original note were not included. Internal Medicine Daily Progress Note Patient: George Styles, 1970, [id number] Physician: Evan Kelly MD, PGY-1, TM1 service [...] s/p combined Liver-kidney transplant on 04/13/20. His confed[place] coos kidney disease was noted to be presumed [...] losartan 50mg BID CAD: non-obstructive CAD on [facility] 2018. - continue home aspirin 81mg [...] P 450 system Kevin Prince MD, SERA Plastic Cutter of Clinical Medicine [facility] ERT Note: ERT [...] MD, PhD Internal Medicine and Pediatrics PGY-3 [facility] Brief plan of care update: Called to [...] MD, PhD Internal Medicine and Pediatrics PGY-3 [facility] Transplant Infectious Disease (Team 3) Progress Note [...] to follow. Please Epic message or page [phone] with questions. 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 His confed[place] coos kidney disease was noted to be presumed [...] 2/2 renal function CAD: non-obstructive CAD on [facility] 2018. - continue home aspirin 81mg [...] completed shifts: In: 2089 [P.O.:2089] Out: 1674 [Urine:5] No intake/output data recorded. LABS Lab Results [...] 5.05 (H) 11/19/2018 Kevin Prince MD, FASN Plastic Cutter of Clinical Medicine [facility] Internal Medicine Daily Progress Note Patient: George Styles, 1970, [id number] Physician: Evan Kelly MD, PGY-1, TM1 service [...] s/p combined Liver-kidney transplant on 04/13/20. His confed[place] coos kidney disease was noted to be presumed [...] 2/2 renal function CAD: non-obstructive CAD on [facility] 2018. - continue home aspirin 81mg [...] 5.05 (H) 11/19/2018 Kevin Prince MD, FASN Plastic Cutter of Clinical Medicine [facility] Progression of Care [...] Lora Colón RN, MSN, CCM, CMCN Clinical High School Professional- R[facility] Transplant #[phone] Made introductory visit with patient. Provided emotional and spiritual support. Patient shared about: - Source of Rosemary: Camping/Fishing/Family - Spirituality/Sikh Affiliation: raised Bahai - Family Support/history - Experience with illness/hospital course - Hopes for healing/future Cost Clerk provided: - Supportive presence - Active listening - Validation of feelings/emotions - Pledged prayer Patient encouraged to request a fixed wing pilot as needed. Chaplains are available in-house 24 hours a day and 7 days a week. For urgent matters in [facility], please page [phone]. If the request is not urgent, please enter a consult. Consults are responded to within 24 hours. Senior Staff Cost Clerkwilmer Singh Mdiv, [facility] Kirk [phone] [email or web address] 22/06 On-call [place]: [phone] 22/06 Pager TYLOR,KIKE, and Brock Maciel Pager [phone] 09/02/23 1112 Clinical Encounter Type Visited With Patient Visit Type Introduction Pastoral Time Spent 15 min Referral Other (See Comment) (rounding) Spiritual Assessment Spiritual Observation Spirituality helpful Emotional Observation Coping well Hope Observation Specific hope focus Support Observation By Family Interventions Provided Active listening;Supportive presence Facilitated Verbalization of feelings Explored Expectations Bacon Stringer Education Bacon Stringer Service Available Yes Educated Patient Outcomes Patient Outcomes Reduced distress Plan of Care Continue Visiting PRN NUTRITION RISK SCREENING NOTE Nutrition Plan of Care: 1. Continue current diet order. 2. No oral supplements warranted at this time. 3. Monitor for significant weight changes. Monitor GI and skin integrity. 4. Monitor and encourage po intakes with goal of average po being 100%. 5. accounting technician to follow. George Styles is a 53 y.o. 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 His confed[place] coos kidney disease was noted to be presumed hepatorenal syndrome. His post-transplant course was noteworthy for nephrostomy tube (05/17/2022-09/10/2022) due to concern for ureteral stone. He presents as a direct admission for fever, cough, for infectious workup. Pt unavailable and information obtained via chart review Rn Otolaryngology Screening Pt's appetite is good. Pt with [...] time. Will continue to monitor. RHIANNON BirminghamR Pager:[phone] Internal Medicine Daily Progress Note Patient: George Feliz Jensen, 1970, [id number] Physician: Evan Kelly MD, PGY-1, TM1 service [...] s/p combined Liver-kidney transplant on 04/13/20. His confed[place] coos kidney disease was noted to be presumed [...] 2/2 renal function CAD: non-obstructive CAD on [facility] 2019. - continue home aspirin 81mg [...] as outlined above. Kevin Prince MD Pager [phone] Summary: Pharmacy Med Rec Department of Pharmacy Admission Medication Reconciliation Note Patient: George Styles [facility]A The patient's allergies have been reviewed [...] further questions. Name: Heidy Chatman Phone #: [phone] Date/Time: 09/01/2023 2:01 PM Time Spent: 15 minutes Associated attestation - Matt Kramer RPh, PharmD - 09/01/2023 2:28 PM EDT Department of Pharmacy Admission Medication Reconciliation Note Patient: George Styles Room/Bed: 1062/A I have reviewed the home medication list with the Automotive Mechanic. All changes to the home medication list have been updated in IHIS. Updated CAR PICK UP DRIVER Med List: Prior to Admission Medications [...] with any further questions. Name: Matt Kramer RPh, PharmD Phone #: [phone] Date/Time: 09/01/2023 2:28 PM Transplant Infectious Disease [...] crypto antigen, EBV PCR -follow pending histo, [id number] labs These recommendations were discussed with the primary team. Transplant ID (Team 3) will continue to follow. Please Epic message or page [phone] with questions. Evan White DO Transplant Infectious Diseases Internal Medicine Daily Progress Note Patient: George Styles, 1970, [id number] Physician: Evan Kelly MD, PGY-1, TM1 service [...] s/p combined Liver-kidney transplant on 04/13/20. His [place]ed[place] coos kidney disease was noted to be presumed [...] 2/2 renal function CAD: non-obstructive CAD on [facility] 2018. - continue home aspirin 81mg [...] 5.05 (H) 11/19/2018 Kevin Prince MD, FASN Plastic Cutter of Clinical Medicine [facility] Discharge Planning Patient [...] Yes Name and Contact information: Gian Jensen ([phone]) Reviewed and Updated in Demographics? : Yes Outpatient Providers Does patient have a primary care physician? : Yes When was the patient's last PCP visit?: > 30 days Does the patient follow any specialists?: No Reviewed and updated Care Team?: Yes Patient Care Team: Zuly Bruno CNP as PCP - General Environment/Caregivers Is the patient from a facility or alf?: No Patient lives with: Alone Living Environment: [...] patient on Anticoagulation? : No [id number] [place] [address] - [address] [facility] [address] Health Careers Instructor Does the patient or admitting representative express financial concerns? : No Employed?: Disabled Coping/Stress Concerns about patient s coping and stress?: No Concerns about patient s caregiver s coping and stress?: No Values and Beliefs Cultural or jewish practices that may impact discharge planning and/or [...] Plan 1. 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 2. Confirmed and updated demographics and treatment team. 3. High School Professional will continue to follow with medical team/pt for any other additional discharge needs. Kasandra DON RN CM *Please note I am float CM and work Thursday and Thursday every other week. Please call [phone] for assist in my absence. Internal Medicine Daily Progress Note Patient: George Styles, 1970, [id number] Physician: Evan Kelly MD, PGY-1, TM1 service [...] s/p combined Liver-kidney transplant on 04/13/20. His [place]ed[place] coos kidney disease was noted to be presumed [...] 2/2 renal function CAD: non-obstructive CAD on [facility] 2018. - continue home aspirin 81mg [...] 5.05 (H) 11/19/2018 Kevin Prince MD, SERA Plastic Cutter of Clinical Medicine [facility] Internal Medicine Daily Progress Note Patient: George Styles, 1970, [id number] Physician: Laurel Serrano MD, PhD, PGY-3, TM1 [...] s/p combined Liver-kidney transplant on 04/13/20. His [place]ed[place] co[place] kidney disease was noted to be presumed [...] losartan 50mg BID CAD: non-obstructive CAD on [facility] 2018. - continue home aspirin 81mg daily, atorvastatin 20mg daily Gout: continue home allopurinol 200mg daily BPH: continue home flomax 0.4mg daily DVT PPX: SQH Code Status: Full Code Disposition: Pending clinical course. Anticipate eventual discharge home. Discussed with team and attending, Kevin Prince MD, on rounds. Signed, Laurel Serrano MD, PhD documented in this encounter [facility] 09-10-2023 Hospital Discharge instructions Laurel [...] a sleep doctor. You will need to cone picker the oxygen concentrator when you leave [...] on healthy foods. documented in this encounter [facility] 09-01-2023 Consult note Associated Order (s): IP CONSULT TO PULMONOLOGY Pulmonary Medicine Inpatient Consultation Reason for Consultation: bronch for infectious workup Requesting Physician: Dr. Prince Pulmonary Attending Physician: Dr. Diaz CURRENT HOSPITALIZATION: Admit Date: 08/28/2023 [facility] Hospital LOS: 4 days Impression/Recommendations: [...] Recommendations: - Plan to bronch tomorrow morning. NPO@[place], order placed - would repeat HIV, last [...] period of time. 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 Other histories as documented in the [...] had any ill contacts. He traveled to [place] to [facility] in May. REVIEW OF SYSTEMS A [...] 05/17/2022 Surgeon: Enzo Heart DO; Location: [facility] INTERVENTIONAL RADIOLOGY (VIR) LIVER TRANSPLANT, ORTHOTOPIC N/A 04/12/2020 Laterality: N/A; Surgeon: LU Palma; Location: [facility] SAME DAY SURGERY MAIN OR KIDNEY TRANSPLANT W/O [place] NEPHRECTOMY N/A 04/12/2020 Laterality: N/A; Surgeon: LU Palma; [facility] [facility] MAIN OR OTHER SURGICAL [...] Alamo MD I can be reached via IHIS secure message (preferred) or Pager #[phone] documented in this encounter [facility] 08-28-2023 History and physical note Images from the original note were not included. Internal Medicine Admission History & Physical Patient: George Styles, 1970, [id number] Physician: Aric Turner MD, PGY1, Pager #[phone], TM service Date of face to face [...] So he went to see the transplant booster plant operator. He was found elevated Cr and [...] Appetite is ok now. Urine is about 8833-0821 ml every day. Stool every day, no [...] 05/17/2022 Surgeon: Enzo Heart DO; Location: [facility] INTERVENTIONAL RADIOLOGY (VIR) LIVER TRANSPLANT, ORTHOTOPIC N/A 04/12/2020 Laterality: N/A; Surgeon: LU Palma; Location: [facility] SAME DAY SURGERY MAIN OR KIDNEY TRANSPLANT W/O [place] NEPHRECTOMY N/A 04/12/2020 Laterality: N/A; Surgeon: LU Palma; Location: 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 His [place] kidney disease was noted to be presumed [...] Urinary histoplasmosis - PJP, candid PCR - Loan Underwriter transplant ID Acute Kidney Injury with Kidney [...] losartan 50mg BID CAD: non-obstructive CAD on [facility] 2018. - continue aspirin 81mg daily, [...] Pierson, Luisa Steven, Renee Rivera, Daisha Max [place]: José Miguel Garnica All Txt: 04/13/2020 (Kidney), [...] results found for: CYCLOSPORIN , CYCLOSPORIN2 , [id number] , CYCLORAND No results found for: SIROLIMUS [...] Rest as above. Kevin Prince MD Pager [phone] documented in this encounter [facility] 08-28-2023 History of Present illness Narrative Images from the original note were not included. 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 Spring Crater: Anayeli Burt Date of Liver Transplant: 04/13/2020 (Kidney), 04/13/2020 (Liver) 3 years 4 months post Liver/Kidney Transplant Primary Disease: Hypertensive Nephrosclerosis Transplant Banquet Captain: Erma Roe/ Daisha Max Primary Care physician: [...] Was removed on 05/23 Removed 05/23/20 Hepatitis C+/KUMRA- donor? no Hepatitis C+/KUMAR+ donor? no IMMUNOSUPPRESSION [...] and faMOTIdine === None Specified Preferred Lab: [facility] Change in lab frequency / new [...] every 12 hours. ADDITIONAL INFORMATION: None Specified, [id number] [place] [address] - [address] [facility] [address] [facility] [address] [facility] [place] [facility] [address] [facility] [address] [id number] [place] [address] [address] [facility] [address] [facility] [address] [facility]ob [address], [address] [facility] [address] ROS and SCREEN: Chest Pain: negative Cough: [...] PHYSICIAN: I saw George Styles at the [facility] on 08/28/2023. Patient is a 53 y.o. 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 His [place] kidney disease was noted to be presumed [...] 05/17/2022 Surgeon: Enzo Heart DO; Location: [facility] INTERVENTIONAL RADIOLOGY (VIR) LIVER TRANSPLANT, ORTHOTOPIC N/A 04/12/2020 Laterality: N/A; Surgeon: LU Palma; [facility] OR KIDNEY TRANSPLANT W/O [place] NEPHRECTOMY N/A 04/12/2020 Laterality: N/A; Surgeon: LU [...] you have any questions. Steve Latham MD strike off machine operator Division of Nephrology [facility] documented in this encounter [facility] 08-28-2023 Instructions Mainor Busby RN - 08/28/2023 2:15 PM EDT - Admission for fevers, cough, and night sweats documented in this encounter [facility] 08-19-2023 History of Present illness Narrative [facility] RX OUTREACH ADVANCED: Call Information: Date and Time of Contact: 08/19/2023 2:52 PM Method of Contact: By Phone Contact Type: Prescriptions Contactor: [facility] Contactee: Patient Shipping/Pickup: Medicare B Refill?: No Medication Name: Tacro 0.5mg Delivery Method: Air Delivery Location: Home Signature Required: No Mailing/Pickup Date: 08/25/2023 Shipping Address: [address] [place] [address] Contact Info: Specialty ([place]) [phone] [facility] [phone] [facility] [phone] David [phone] Bedside Delivery ([facility]) [phone] documented in this encounter [facility] 06-12-2023 History of Present illness Narrative Images from the original note were not included. George tSyles is a 53 y.o. 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 No longer follows with a local booster plant operator. History of Present Illness: Since George [...] and lab results. Rebeca Gutierrez MSN, RN, COMPUTER SYSTEM TECHNICIAN-BC, CCTN Certified Nurse Practitioner [facility] [address] [facility] [address] documented in this encounter [facility] 06-12-2023 Instructions JEANNA Hess - 06/12/2023 3:00 PM EDT No change in immunosuppression. documented in this encounter [facility] 06-10-2023 History of Present illness Narrative [facility] OUTREACH ADVANCED: Call Information: Method of Contact: By Phone Contact Type: Prescriptions Contactor: [facility] Contactee: Patient Contact Outcome: Left message Shipping/Pickup: Medication Name: Mycophenolate sod 180 mg Contact Info: Specialty ([place]) [phone] [facility] [phone] [facility] [phone] [facility] [phone] Bedside Delivery ([facility]) [phone] [facility] RX OUTREACH ADVANCED: Call Information: Date and Time of Contact: 06/12/2023 9:43 AM Method of Contact: By Phone Contact Type: Prescriptions Contactor: [facility] Contactee: Patient Contact Outcome: Left message and Follow-up Shipping/Pickup: Medicare B Refill?: No Medication Name: Myco 180 Contact Info: Specialty ([place]) [phone] [facility] [phone] [facility] [phone] [facility] [phone] Bedside Delivery ([facility]) [phone] [facility] RX OUTREACH ADVANCED: Call Information: Date and Time of Contact: 06/12/2023 10:08 AM Method of Contact: By Phone Contact Type: Prescriptions Contactor: [facility] Contactee: Patient Shipping/Pickup: Medicare B Refill?: No Medication Name: Mycophenolate 180mg DR Delivery Method: Air Delivery Location: Home Signature Required: No Mailing/Pickup Date: 06/17/2023 Shipping Address: [address] [place] [address] [place], [place] [address] Contact Info: Specialty ([place]) [phone] Jakob [phone] [place] [phone] David [phone] Bedside Delivery ([facility]) [phone] documented in this encounter [facility] 04-13-2023 Note [place] [facility] - [facility] Subjective George Styles is a [...] Required: No Mailing/Pickup Date: 03/16/2023 Shipping Address: [address] [facility] [address] Contact Info: Specialty ([place]) [phone] Jakob [phone] [facility] [phone] David [phone] Bedside Delivery ([facility]) [phone] [facility] RX OUTREACH ADVANCED: Call Information: [...] Required: No Mailing/Pickup Date: 03/19/2023 Shipping Address: [address] [place] [address] [address] Contact Info: Specialty ([place]) [phone] [facility] [phone] [facility] [phone] David [phone] Bedside Delivery ([facility]) [phone] documented in this encounter [facility] 03-10-2023 History of Present illness Narrative [facility] OUTREACH ADVANCED: Call Information: Date and Time of Contact: 03/10/2023 12:00 PM Method of Contact: By Phone Contact Type: Prescriptions Contactor: [facility] Contactee: Patient Contact Outcome: Left message and Call back later Shipping/Pickup: Medication Name: Mycophenolate ; Tacrolimus Contact Info: Specialty ([place]) [phone] [facility] [phone] [facility] [phone] David [phone] Bedside Delivery ([facility]) [phone] documented in this encounter [facility] 03-10-2023 History of Present illness Narrative [facility] RX OUTREACH ADVANCED: Call Information: Date and Time of Contact: 03/10/2023 12:00 PM Method of Contact: By Phone Contact Type: Prescriptions Contactor: [facility] Contactee: Patient Contact Outcome: Left message and Call back later Shipping/Pickup: Medication Name: Mycophenolate ; Tacrolimus Contact Info: Specialty ([place]) [phone] [facility] [phone] [facility] [phone] [facility] [phone] Bedside Delivery ([facility]) [phone] [facility] RX OUTREACH ADVANCED: Call Information: Date and Time of Contact: 03/12/2023 10:32 AM Method of Contact: By Phone Contact Type: Prescriptions Contactor: [facility] Contactee: Patient Contact Outcome: Left message Shipping/Pickup: Medication Name: Mycophenolate sodium (MYFORTIC) 180 MG Tab tacrolimus 0.5 mg Contact Info: Specialty ([place]) [phone] [facility] [phone] [facility] [phone] [facility] [phone] Bedside Delivery ([facility]) [phone] documented in this encounter [facility] 01-16-2023 History of Present illness Narrative -Referring Provider for today's consult: Daisha Max DO -Primary Care Provider: Zuly Bruno History of Present Illness George Styles is a 52 y.o. male who [facility] today for follow-up [...] 05/17/2022 Surgeon: Enzo Heart DO; Location: [facility] INTERVENTIONAL RADIOLOGY (VIR) LIVER TRANSPLANT, ORTHOTOPIC N/A 04/12/2020 Laterality: N/A; Surgeon: LU Palma; Location: [facility] SAME DAY SURGERY MAIN OR KIDNEY TRANSPLANT W/O E[place] NEPHRECTOMY N/A 04/12/2020 Laterality: N/A; Surgeon: LU Palma; Location: [facility] SAME DAY SURGERY MAIN OR OTHER SURGICAL [...] 0.3 12/29/2022 Explant Pathology Pathologic Diagnosis A. [place] liver, orthotopic liver transplant resection (1458 gram): [...] A/P with IV contrast (06/27/2022): 1. Both [place] kidneys are atrophic with improvement in right-sided [...] nighttime urination, etc). Daisha Max DO Plastic Cutter Gastroenterology, Hepatology and Nutrition [facility] Pager: [phone] Images from the original note were not included. 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 Spring Crater: Anayeli Burt Date of Liver Transplant: 04/13/2020 (Kidney), 04/13/2020 (Liver) 2 years, 8 months post Liver/Kidney Transplant Primary Disease: Hypertensive Nephrosclerosis Transplant Banquet Captain: Steve Latham Primary Care physician: Zuly Bruno [...] levels: No results found for: CYCLOSPORIN, CYCLOSPORIN2, [id number], CYCLORAND No components found for: CYCLOSPORINE, 2HR [...] hours. ADDITIONAL INFORMATION: None Specified [id number] [place] [address] - [address] [facility] [address] [place] [address] [facility] [address] [place] [address] [facility] [address] [id number] [place] [address] [address] [facility] [address] [facility] [address] [facility] [address], [address] [facility] [address] ROS and SCREEN: Chest Pain: negative Cough: [...] ADDRESS WITH PHYSICIAN: documented in this encounter [facility] 01-16-2023 Instructions José Miguel Garnica RN - 01/16/2023 9:40 AM EST - Labs Every 2 months - Discuss night time urination with your PCP - Schedule Colonoscopy through PCP - Follow up in 1 year documented in this encounter [facility] 09-10-2022 History of Present illness Narrative [...] and no hydronephrosis. Some reflux up the [place] right ureter but good drainage of both transplant and [place] ureter to the bladder. Nephrostomy tube was [...] transplant, orthotopic (N/A, 04/12/2020); kidney transplant w/o [place] nephrectomy (N/A, 04/12/2020); and placement nephrostomy catheter [...] Negative for , diarrhea, constipation Genitourinary: See NOORVIK Neurological: Negative for headaches. Lymph/Heme: Negative for [...] x 4, Normal strength. No edema. Skin: [place], warm, and dry. There are no rashes [...] and no hydronephrosis. Some reflux up the [place] right ureter but good drainage of both transplant and [place] ureter to the bladder. Nephrostomy tube was [...] MD 09/10/22 documented in this encounter [facility] 07-07-2022 History of Present illness [...] assisted off the table and escorted to bulk clerk where they made a follow up. 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 Nephrostomy tube [...] to have transplant ureter with anastomosis to [place] right ureter. Nephrostogram without filling defects and no hydronephrosis. Some reflux up the [place] right ureter but good drainage of both transplant and [place] ureter to the bladder. Nephrostomy tube was removed without issue. Patient does have some sensation of incomplete bladder emptying and occasional sensation in his right flank. PVR today was 33cc. Will re-evaluate urinary symptoms at next appointment. --continue Flomax --RTC in one month flow flow/PVR/IPSS Patient to call with any additional questions or concerns. Ryan Yepez MD 07/07/22 documented in this encounter [facility] 06-27-2022 History of Present illness [...] transplant, orthotopic (N/A, 04/12/2020); kidney transplant w/o [place] nephrectomy (N/A, 04/12/2020); and placement nephrostomy catheter [...] Negative for , diarrhea, constipation Genitourinary: See NOORVIK Neurological: Negative for headaches. Lymph/Heme: Negative for [...] x 4, Normal strength. No edema. Skin: [place], warm, and dry. 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 Nephrostomy tube [...] bag if needed. documented in this encounter [facility] 06-27-2022 History and physical note Patient was evaluated in clinic as a nurse visit. Please refer to Rena Brewster's note. [facility] Work Phone: 06-27-2022 History and physical note Patient was evaluated in clinic as a nurse visit. Please refer to Rena Brewster's note. documented in this encounter [facility] 06-27-2022 History of Present illness Narrative TEACHING REGARDING TX NEPH COMPLETED-NEPH TUBE SITE DRY AND INTACT-CLEAR YELLOW URINE IN THE BAG-INSTRUCTED ABOUT FLUSHING, BAG CHANGING ETC. NUMEROUS QUESTIONS ASKED AND ANSWERED-VERBALIZED UNDERSTANDING documented in this encounter [facility] 06-18-2022 Note EXAMINATION: CT ABD/ PELVIS [...] mass or enlargement. KIDNEYS: Marked atrophy of [place] kidneys. Transplant right pelvic kidney with percutaneous [...] authenticated by: MÓNICA JIMENEZ Date: 2022-06-18 13:53 [facility] 06-12-2022 Instructions Anayeli Christianson RN - 06/12/2022 3:21 PM EDT Do not take apart/disrupt nephrostomy tube system. Call Interventional Radiology and/or on-call transplant nurse [phone] for instruction if need to flush (clot or decreased flow). Take cipro 500mg, one tablet, twice per day for 14 days documented in this encounter [facility] 06-12-2022 History of Present illness Narrative Images from the original note were not included. 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 Spring Crater: Anayeli Burt Date of Liver Transplant: 04/13/2020 (Kidney), 04/13/2020 (Liver) 2 year, 1 months post Liver/Kidney Transplant Primary Disease: Hypertensive Nephrosclerosis Transplant Banquet Captain: Steve Latham Primary Care physician: Zuly Bruno [...] Non-obstructing kidney stone in renal graft at [facility]. Percutaneous Neph Tube placed Images from the original note were not included. Nursing Assessment In Clinic (see Clinic Prep Sheet for additional information) Patient is accompanied to clinic today by: self Did patient require a wheelchair or medical transport for appointment: no Did front desk assistant confirm current address and insurance information is [...] LAB AND PHARMACY: None Specified [facility] [place] [address] - [address] [address] [facility] [address] [facility] [facility] [address] [id number] [place] [address] [address] [facility] [address] [facility] [address] [facility] [address], [address] [facility] [address] ROS and SCREEN: Chest Pain: negative Cough: negative SOB: negative Abd Pain: negative Nausea: positive Vomiting: negative Diarrhea: negative Constipation: negative Dysuria: positive Edema: negative Tremors: negative Headaches: negative Wound issues: negative Pt has neph tube w clear yellow urine. States he had a small clot that he dislodged QUESTIONS OR CONCERNS TO ADDRESS WITH PHYSICIAN: I saw George Styles at the [facility] on 06/12/2022. Patient is a 52 y.o. 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 His [place] kidney disease was noted to be presumed [...] 05/17/2022 Surgeon: Enzo Heart DO; Location: [facility] INTERVENTIONAL RADIOLOGY (VIR) LIVER TRANSPLANT, ORTHOTOPIC N/A 04/12/2020 Laterality: N/A; Surgeon: LU Palma; Location: [facility] SAME DAY SURGERY MAIN OR KIDNEY TRANSPLANT W/O [place] NEPHRECTOMY N/A 04/12/2020 Laterality: N/A; Surgeon: LU Palma; Location: [facility] SAME DAY SURGERY MAIN OR OTHER SURGICAL [...] you have any questions. Steve Latham MD strike off machine operator Division of Nephrology [facility] documented in this encounter [facility] 06-04-2022 TATI Washington - 06/04/2022 11:04 AM EDT Thank you for joining us for your neph tube follow up. We recommend routine exchange every 8-10 weeks. Please reach out at [phone] when it is time to set your next routine exchange. Thank you IR clinic documented in this encounter [facility] 06-04-2022 History of Present illness Narrative [...] exchange. Verbalized understanding. documented in this encounter [facility] 05-20-2022 Note Formatting of this n [...] time of his discharge. Leon Cook RN [facility] 05-20-2022 Miscellaneous Notes Patient discharged. AVS [...] provide teaching before his discharge Leon RN #[id number] Leon Cook RN Afternoon assessment completed at [...] Interdisciplinary Rounds/Family Conf Outcome: Ongoing Discussed with [facility] re: possible urine culture performed at [...] has only had 25ml urine output in [place] this afternoon. Urology Plan of Care Mr. [...] with questions. Evan Byrd MD Urology, PGY-2 #[id number] I certify that this patient requires inpatient [...] care explained choices provided On admission to [facility], a dual RN initial assessment of skin condition was performed by Kallie Lorenzana RN and Sheri Arguelles RN. Skin Assessment: WDL Jose Score: 20 LDA Added:N Kallie Lorenzana RN documented in this encounter [facility] 05-20-2022 Note Formatting of this n [...] discharge/transition of care. Outcome: Adequate for Discharge [facility] 05-20-2022 Note Formatting of this n ote might be different from the original. nAne Dillard MD R10 Rm 100[address] Jensen George Please let's have a clear order on how the nephrostomy site dressing need to be changed when the patient goes home so we provide teaching before his discharge Leon GALLARDO #[id number] Leon Joey, RN [facility] 05-20-2022 History of Present illness Narrative Images from the original note were not included. [facility] Note: [facility] received the following discharge prescription(s): Medication reconciliation was completed with comparison to discharge reconciliation report. The prescription(s) will be delivered to the patient's bedside on 05/20/22. Total cost is $0. Yanira Her RPh,PharmD Specialty ([place]) [phone] [facility] [phone] [facility] [phone] David [phone] [place] [phone] Bedside Delivery ([facility]) [phone] Attending I saw George Styles at the [facility] on 05/19/2022. I saw and [...] Daily Progress Note Patient: George Styles, 1970, [id number] Physician: Liam Julian MD, PGY-3, Pager #[phone], [email or web address] Subjective/Interval History: No acute events overnight. Passed [...] Na/K+/Phos/Mg/Ca: 141/3.9/2.7/1.7/8.6 (05/19 421) Bun/Creat/Cl/CO2/Glucose: 21/1.46/106/24/103 (05/19 0421) Assessment/Plan: George Styles is a 52 y.o. [...] Saldana MD Division of Hospital Medicine Pager [phone] Attending I saw George Styles at the [facility] on 05/18/2022. I saw and [...] Daily Progress Note Patient: George Styles, 1970, [id number] Physician: Nishant Gamez MD, PGY2, Pager #[phone], [email or web address] Subjective/Interval History: Nephrostomy tube placed yesterday with [...] to have stablized for this to be admitting representative. Daya (Nunu) Jeff Saldana MD Division of Hospital Medicine Pager [phone] Internal Medicine Daily Progress Note Patient: George Styles, 1970, [id number] Physician: Nishant Gamez MD, PGY2, Pager #[phone], [email or web address] Subjective/Interval History: Worsening creatinine this morning with [...] is still working to his knowledge. Daya Gao) Jeff Saldana MD Division of Hospital Medicine Pager [phone] Attending I saw George Styles at the [facility] on 05/17/2022. I saw and [...] of chart and discussion with treatment team, High School Professional has not identified needs at this [...] follow. Introduced self and role of the fixed wing pilot to patient. Provided emotional and spiritual support and the patient responded by sharing their experience and discussed the following: - Spirituality/Sikh Affiliation: As a kid attended [employer] adventism but not a strong identity now - Family support - pt's brothers live close by Cost Clerk provided: - Supportive presence - Active listening - Validation of feelings/emotions Patient encouraged to request a fixed wing pilot as needed. Chaplains are available in-house 24 hours a day and 7 days a week. For urgent matters in [facility], please page [phone]. If the request is not urgent, please enter a consult. Consults are responded to within 24 hours. Angie Singh Mdiv, [facility] Burn Unit and Transplant [place] [address] Cost Clerk [facility] Cost Clerk Kirk [phone] [email or web address] 22/06 [facility] Pager [phone] 22/06 Pager ,[facility], and Brock 1500 22/06 David Pager [phone] 05/16/22 1124 Clinical Encounter Type Visited With Patient Visit Type Introduction Pastoral Time Spent 15 min Referral Other (See Comment) (Rounding) Spiritual Assessment Spiritual Observation Spirituality helpful;Identifies as (see comment) (Anglican) Emotional Observation Coping well Hope Observation Hopeful and accepting Support Observation By Family Interventions Provided Active listening;Supportive presence Facilitated Verbalization of feelings;Sharing of life story;Identifying support system Explored Expectations Bacon Stringer Education Bacon Stringer Service Available Yes Educated Patient Outcomes Patient Outcomes Articulated purpose/meaning Plan of Care Continue Visiting PRN Internal Medicine Daily Progress Note Patient: George Styles, 1970, [id number] Physician: Nishant Gamez MD, PGY2, Pager #[phone], [id number] Subjective/Interval History: Overall feeling okay this morning. [...] UTI while waiting on urinary cx. 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 [...] Supervision Transfer Assessment: Sit to Stand Transfer Todd Level: Sit->Stand: independent Skilled Intervention/Details: Sit->Stand: x1 from EOB Stand to Sit Transfer Todd Level: Stand->Sit: supervision Assistive Device: Stand->Sit: armed chair Skilled Rationale: Controlled descent for sitting, Verbal cues Gait/Functional Mobility: Gait Assessment Todd Level: Gait: supervision Assistive Device: Gait: gait belt Gait Distance (feet): 200 Gait Deviations Identified: decreased grace, decreased step length, decreased stride length Gait Skilled Rationale: verbal, upright posture Skilled Intervention/Details - Gait: Pt with steady gait without LOB or complaints of SOB. Stairs: Stairs Assessment Todd Level: Stair Negotiation: stand-by assist Assistive Device: Stair Negotiation: gait belt, left rail (ascending) Number of stairs: 9 Stairs Skilled Rationale: reciprocal pattern Outcome Score(s): CURRENT [facility] Basic Mobility Inpatient Short Form Turning over in bed: 4 - No Assistance Sitting/standing from chair: 4 - No Assistance Moving from lying on back to sittin - No Assistance Moving to and from bed to chair: 4 - No Assistance Walk in hospital room: 3 - A Little Assistance Climbing 3-5 steps with a railin - A Little Assistance CURRENT [facility] Mobility Raw Score: 22 CURRENT [facility] Mobility Functional Limitation/Modifier: 20.91% Currently Impaired [...] community) Prior Level of Function Details: 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 IADL History IADLs: independent Primary Language: Guatemalan Home Management Skills: independent Meal Prep Responsibility: [...] Assessment: Transfer Assessment: Sit to Stand Transfer Todd Level: Sit->Stand: independent Skilled Rationale: Cues for increased safety Skilled Intervention/Details: Sit->Stand: x1 EOB Stand to Sit Transfer Todd Level: Stand->Sit: supervision Assistive Device: Stand->Sit: gait belt, armed chair Skilled Rationale: Verbal cues, Controlled descent for sitting, Cues for increased safety Skilled Intervention/Details: Stand->Sit: cues for hand placement and controlled descent Functional Mobility: Functional Mobility Todd Level: Functional Mobility/Gait: stand-by assist Assistive Device: Functional Mobility/Gait: gait belt Functional Mobility Distance: Distance needed for limited community mobility Functional Mobility Deficits: Activity tolerance, Balance, Decreased step length, Generalized weakness Functional Mobility Skilled Rationale: Verbal cues, Facilitate postural control Skilled Intervention/Details - Functional Mobility/Gait: cues for upright posture Outcome Score(s): CURRENT [facility] Daily Activity Inpatient Short Form Putting on/Taking Off Lower Body Clothin - A Little Assistance Bathin - A Little Assistance Toiletin - A Little Assistance Putting on/Taking Off Upper Body Clothin - No Assistance Groomin - No Assistance Eatin - No Assistance CURRENT [facility] Activity Raw Score: 21 CURRENT [facility] Activity Functional Limitation/Modifier: 32.79% Currently Impaired [...] DAY SURGERY MAIN OR KIDNEY TRANSPLANT W/O EASTERN SHOSHONE NEPHRECTOMY N/A 04/12/2020 Laterality: N/A; Surgeon: LU [...] by: Mel Norman OT, OTR/L License #: [id number] pager # [phone] 05/20/2022 Upon discontinuation of Acute Care Occupational Therapy Services or patient discharge from the hospital this note represents the current Occupational Therapy Discharge Summary. documented in this encounter [facility] 05-20-2022 Hospital course Narrative Discharge [...] recent hospital stay at [facility]. As you may know, George Styles, is [...] Saldana MD Division of Hospital Medicine p: [phone] f: [phone] CONSULTS DURING ADMISSION: IP CONSULT TO SURGERY - UROLOGY IP CONSULT TO NEPHROLOGY - TRANSPLANT (MEDICINE) IP CONSULT TO INTERVENTIONAL RADIOLOGY IP CONSULT TO PHYSICAL THERAPY IP CONSULT TO OCCUPATIONAL THERAPY IP CONSULT TO PHARMACY BEDSIDE DISCHARGE MED DELIVERY IMAGING / PROCEDURES / RESULTS: Should you require further information or copies of results or reports please contact [employer] Information Management @ [phone] LABS AT TIME OF DISCHARGE: Lab Results [...] 5.6 08/16/2021 PATIENT'S MEDICAL HOME AT DISCHARGE: Zulytray Bruno [address] [facility] / [place] [address] MEDICATIONS: Discharge Orders CT ABDOMEN/PELVIS WITHOUT CONTRAST [...] CAPS Generic drug: docusate Follow-up: Zuly Bruno, [employer] [address] [facility] [address] Schedule an appointment as soon as possible for a visit Follow-up appointment with your, primary care physician within 7-10 days, after discharge. [address] [facility] [id number] Follow up The department of urology will call you with a follow up appointment. LU Ovalle [address] 11th Floor [facility] [address] Follow up Please make a follow up appointment with Dr. Latham's office. Upcoming Appointments (up to five)-Some appointments for Medical Center outpatient clinics or diagnostic testing locations are not displayed below Provider Department Dept Phone 06/04/2022 10:40 AM ERNESTO MACIEL [facility] Interventional Radiology Clinic [phone] 06/27/2022 1:30 PM CARLI BUSTAMANTE, [facility] Department of Radiology Arrive at: Arrive to First Floor Registration Desk [phone] 06/27/2022 2:40 PM Ryan Yepez [facility] Arrive at: Arrive to 2nd Floor, Registration [address] 10/31/2022 1:00 PM Steve Latham [facility] Transplant Center [facility] [phone] 01/16/2023 9:40 AM TRANSPLANT HEPATOLOGY 3, [email or web address] Transplant Center [facility] [phone] Associated attestation - Daya Saldana MD - [...] Saldana MD Division of Hospital Medicine Pager [phone] documented in this encounter [facility] 05-20-2022 Hospital Discharge instructions Giulia [...] be changed by Interventional Radiology. Please call [phone] to schedule this appointment and with any questions or concerns you may have regarding the nephrostomy tube. If you have questions or concerns, please call Interventional Radiology at SOMEONE FROM INTERVENTIONAL RADIOLOGY WILL CALL YOU FOR A FOLLOW UP IN THE IR CLINIC Giulia Cavazos RN Nurse Coordinator Interventional Radiology Interventional Radiology Outpatient scheduling documented in this encounter [facility] 05-19-2022 Note Formatting of this [...] Ongoing Goal: Interdisciplinary Rounds/Family Conf Outcome: Ongoing [facility] 05-19-2022 Note Formatting of this n ote might be different from the original. Discussed with [facility] re: possible urine culture performed at their facility. However, based on urinalysis completed at that time, which was only notable for hematuria, culture was not performed and sample no longer feasible for culture. Liam Julian MD Internal Medicine/Pediatrics, PGY-3 [facility] 05-18-2022 Note Formatting of this n ote might be different from the original. 2003: IHIS message sent to Dr Justyn Wen, regarding patient passing a small kidney stone, about the size of pea. MD notified. Stone left in strainer in pt bathroom. 0500: IHIS message sent to Dr Justyn Wen, regarding pt BP 174/77. [facility] 05-18-2022 Note Formatting of this n [...] outcomes by discharge/transition of care. Outcome: Ongoing [facility] 05-18-2022 Note Formatting of this n [...] becomes hyponatremic, NS should instead be used. [facility] Work Phone: 05-18-2022 Note Formatting of this n ote might be different from the original. IHIS chat sent to Dr Tray Quintana, regarding pt BP 190/86. Pt complaining of pain at site of neph tube. PRN pain medication given per order parameters. Pt denies any other symptoms at this time. notified and aware. [facility] 05-17-2022 Note Formatting of this n ote might be different from the original. At 0900, I rounded with Dr. Gamez and Dr. Saldana. At that time I checked Mr. Styles's vital signs. His pulse oximeter was low and he was tachypneic. Verbal order at bedside to put nasal cannula on starting at 2liters oxygen and to provide incentive spirometer. [facility] 05-17-2022 Note Formatting of this n ote might be different from the original. Interventional Radiology procedure completed with IR Attending Dr. Heart / Dr. Le of percutaneous right nephrostomy tube placement transplant kidney 10.2 Fr Griffin acosta Pt tolerated procedure with moderate sedation local numbing agent . Transported to inpatient after phase I recovery. Post procedure orders in place. [facility] 05-16-2022 Note Formatting of this n ote might be different from the original. At 1530, I text chavad Kaitlynn Gomez MD that patient has only had 25ml urine output in matias this afternoon. [facility] 05-16-2022 Note Formatting of this n [...] with questions. Evan Byrd MD Urology, PGY-2 #[id number] [facility] Work Phone: 05-16-2022 Note Formatting of this n ote might be different from the original. I certify that this patient requires inpatient services at this time. I anticipate the expected length of stay will include at least two midnights. Inpatient services are due to the following medical concerns Obstructive kidney stone. Plans for post hospitalization care will be discharge to home. [facility] 05-16-2022 Consult note Associated Order (s): IP CONSULT TO NEPHROLOGY - TRANSPLANT (MEDICINE) I saw George Styles at the [facility] on 05/16/2022. Reason for Consultation: [...] he was given flomax and sent home. [place] better but noticed more pain and decreased [...] best assessment and recommendations. Maxi Pringle MD [facility] Work Phone: 05-16-2022 Consult note Associated Order (s): IP CONSULT TO NEPHROLOGY - TRANSPLANT (MEDICINE) I saw George Styles at the [facility] on 05/16/2022. Reason for Consultation: [...] he was given flomax and sent home. [place] better but noticed more pain and decreased [...] states he went to his local ED [place] and he was put on Flomax and he did improve. Pt states last night he was unable to void with severe right sided abd pain. Pt states nausea and no vomiting or fevers. Pt states he went back to [facility] ED at 0100 and they placed a [...] orthotopic (N/A, 04/12/2020); and kidney transplant w/o confederated coos nephrectomy (N/A, 04/12/2020). 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 The confederated coos kidneys are progressively atrophic bilaterally compared to [...] of 06/14/2020 are no longer present. The confederated coos distal right ureter is decompressed beyond this [...] with surgical history for renal graft and confederated coos right urinary drainage, as a discrete ureteroneocystostomy is not identified, and the graft may be draining via a ureteroureterostomy. Urology consultation recommended. 3. The confederated coos kidneys are bilaterally atrophic, with right renal sinus calcifications consistent with nonobstructing right confederated coos renal calculi up to 6 mm. Normal [...] PGY-3, Department of Urologic Surgery Pager #: [phone] Associated attestation - Ryan Yepez MD - [...] continue flomax documented in this encounter [facility] 05-16-2022 Note Formatting of this [...] supported Trust Relationship/Rapport: care explained choices provided [facility] 05-16-2022 Note Formatting of this n ote might be different from the original. On admission to [facility], a dual RN initial assessment of skin condition was performed by Kallie Lorenzana RN and hSeri Arguelles RN. Skin Assessment: WDL Jose Score: 20 LDA Added:N Kallie Lorenzana RN [facility] 05-15-2022 Emergency department Note Report given to Kallie RN at [facility] 05-15-2022 Emergency department Note Report given [...] DAY SURGERY MAIN OR KIDNEY TRANSPLANT W/O EASTERN SHOSHONE NEPHRECTOMY N/A 04/12/2020 Laterality: N/A; Surgeon: LU [...] Schneider MD Resident 05/15/222030 Pt arrives from [facility] with kidney stones. Pt states he had right lower abd pain and right flank pain with blood in his urine since Thursday. Pt states he went to his local ED [place] and he was put on Flomax and he did improve. Pt states last night he was unable to void with severe right sided abd pain. Pt states nausea and no vomiting or fevers. Pt states he went back to [facility] ED at 0100 and they placed a matias and CT scan completed and multiple kidney stones noted. [facility] as he had liver and kidney transplant in 03/2020. documented in this encounter [facility] 05-15-2022 History and physical note Internal Medicine Admission History & Physical Patient: George Styles, 1970, [id number] Physician: Evan Bennett MD, PGY1, Pager #[phone], GM 4 service Date of face to [...] Laterality: N/A; Surgeon: LU Palma; Location: [facility] SAME DAY SURGERY MAIN OR KIDNEY TRANSPLANT W/O EASTERN SHOSHONE NEPHRECTOMY N/A 04/12/2020 Laterality: N/A; Surgeon: LU Palma; Location: [facility] SAME DAY SURGERY MAIN OR OTHER SURGICAL [...] erythema: Skin: No jaundice or rash Neuro: pediatric orthodontist 3-7, 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 Strength grossly [...] dilation of the calyces may represent narrowing/partial [id number] ofthe ureter and mild hydronephrosis or sequela [...] MD Division of Hospital Medicine [phone] [facility] Work Phone: 05-15-2022 History and physical note Internal Medicine Admission History & Physical Patient: George Styles, 1970, [id number] Physician: vEan Bennett MD, PGY1, Pager #[phone], GM 4 service Date of face to [...] Laterality: N/A; Surgeon: LU Palma; Location: [facility] SAME DAY SURGERY MAIN OR KIDNEY TRANSPLANT W/O EASTERN SHOSHONE NEPHRECTOMY N/A 04/12/2020 Laterality: N/A; Surgeon: LU Palma; Location: [facility] SAME DAY SURGERY MAIN OR OTHER SURGICAL [...] erythema: Skin: No jaundice or rash Neuro: pediatric orthodontist 3-7, 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 Strength grossly [...] dilation of the calyces may represent narrowing/partial [id number] ofthe ureter and mild hydronephrosis or sequela [...] Medicine [id number] documented in this encounter [facility] 05-15-2022 Emergency department Note Bladder scan with Dr Villatoro at bedside, 14ml noted [facility] 05-15-2022 Consult note Associated Order [...] states he went to his local ED [place] and he was put on Flomax and he did improve. Pt states last night he was unable to void with severe right sided abd pain. Pt states nausea and no vomiting or fevers. Pt states he went back to [facility] ED at 0100 and they placed a [...] orthotopic (N/A, 04/12/2020); and kidney transplant w/o confederated coos nephrectomy (N/A, 04/12/2020). 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 The confederated coos kidneys are progressively atrophic bilaterally compared to [...] of 06/14/2020 are no longer present. The confederated coos distal right ureter is decompressed beyond this [...] with surgical history for renal graft and confederated coos right urinary drainage, as a discrete ureteroneocystostomy is not identified, and the graft may be draining via a ureteroureterostomy. Urology consultation recommended. 3. The confederated coos kidneys are bilaterally atrophic, with right renal sinus calcifications consistent with nonobstructing right confederated coos renal calculi up to 6 mm. Normal [...] PGY-3, Department of Urologic Surgery Pager #: [phone] Associated attestation - Ryan Yepez MD - [...] before surgical intervention --may continue flomax [facility] Work Phone: 05-15-2022 Emergency department Note Advised Dr Schneider concerning no urine output via matias catheter. [facility] 05-15-2022 Physician Emergency department Note ED Attending George Styles has a past medical history of Acute renal failure, CAD (coronary artery disease), Cirrhosis, Dialysis patient, End stage renal disease (06/01/2018), Essential hypertension, benign, Hepatic encephalopathy, History of blood transfusion, and Liver cirrhosis. Presents with a chief complaint of kidney stone and diagnosed Thursday and was sent home with [facility]. He went back to that ED and [...] plan of care. Gian Villatoro MD 05/15/222003 [facility] Work Phone: 05-15-[address] Schneider made aware of only 30 ml urine via matias since arrival to room. [facility] 05-15-2022 Physician Emergency department Note dEPARTMENT [...] DAY SURGERY MAIN OR KIDNEY TRANSPLANT W/O EASTERN SHOSHONE NEPHRECTOMY N/A 04/12/2020 Laterality: N/A; Surgeon: LU [...] any incorrections. Matt Schneider MD Resident 05/15/222030 [facility] Work Phone: 05-15-2022 Emergency department Note Pt arrives from [facility] with kidney stones. Pt states he had right lower abd pain and right flank pain with blood in his urine since Thursday. Pt states he went to his local ED [facility] and he was put on Flomax and he did improve. Pt states last night he was unable to void with severe right sided abd pain. Pt states nausea and no vomiting or fevers. Pt states he went back to [facility] ED at 0100 and they placed a matias and CT scan completed and multiple kidney stones noted. Pt sent to [facility] as he had liver and kidney transplant in 03/2020. [facility] 03-14-2022 History of Present illness Narrative [...] Required: No Mailing/Pickup Date: 03/17/2022 Shipping Address: [address] [place] [address] [address] Contact Info: Specialty ([place]) [phone] Jakob [phone] [facility] [phone] David [phone] Bedside Delivery ([facility]) [phone] documented in this encounter [facility] 06-14-2021 History of Present illness Narrative [...] 05/16/22 Goal Progress: Satisfactory Contact Info: Specialty ([place]) [phone] Jakob [phone] [facility] [phone] David [phone] Bedside Delivery ([facility]) [phone] [facility] OUTREACH: Call Information: Date [...] Location: Home Signature Required: Yes Shipping Address: [address] [place] [address] [address] [address] Contact Info: Specialty ([place]) [phone] Jakob [phone] [facility] [phone] David [phone] Bedside Delivery ([facility]) [phone] documented in this encounter [facility] Evaluation note Diagnosis FAYE (acute kidney injury)- Primary Acute kidney failure, unspecified Hydronephrosis due to obstruction of ureteral orifice Hydronephrosis due to obstruction of ureteral orifice FAYE (acute kidney injury) Acute kidney failure, unspecified [facility] Diagnosis Follow-up exam- Primary Unspecified follow-up examination documented [facility] Diagnosis Immunosuppressed status- Primary Unspecified disorder of immune mechanism Kidney replaced by transplant Liver replaced by transplant Abnormal blood chemistry Other abnormal blood chemistry High risk medication use Encounter for long-term (current) use of other medications Aftercare following organ transplant Liver transplant recipient [facility] Diagnosis Attention to nephrostomy- Primary [facility] Diagnosis Other hydronephrosis- Primary [facility] Diagnosis FAYE (acute kidney injury) Acute kidney failure, unspecified documented [facility] Diagnosis Other hydronephrosis- Primary -donor kidney transplant recipient Kidney replaced by transplant [facility] Diagnosis Other hydronephrosis [facility] Diagnosis 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) Encounter for screening for malignant neoplasm of prostate Special screening for malignant neoplasm of prostate [facility] Diagnosis Abnormal blood chemistry- Primary Other abnormal blood chemistry Liver transplant recipient Kidney replaced by transplant Immunosuppressed status Unspecified disorder of immune mechanism Aftercare following organ transplant [facility] Diagnosis Kidney replaced by transplant- Primary [facility] Diagnosis Immunosuppressed status- Primary Unspecified disorder of immune mechanism Kidney replaced by transplant Aftercare following organ transplant High risk medication use Encounter for long-term (current) use of other medications Other general symptoms and signs Abnormal blood chemistry Other abnormal blood chemistry Hypertension secondary to other renal disorders [facility] Diagnosis Histoplasmosis- Primary Histoplasmosis, [...] Fever Fever, unspecified [facility] Diagnosis Bilateral lower extremity edema- Primary 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) Atherosclerosis 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) Atherosclerosis of aorta Obesity (BMI 30-39.9) DARLENE (obstructive sleep apnea) Obstructive sleep apnea (adult) (pediatric) Tremor Abnormal involuntary movements Immunocompromised (CMS/HCC) Unspecified immunity deficiency Primary hypertension (CMS/HCC) Unspecified essential hypertension Shortness of breath documented in this encounter [facility]* Diagnosis Pleural effusion on [...] specified pre-operative examination [facility] Diagnosis Heart failure, diastolic, acute- Primary Acute diastolic heart failure [facility] Consultation (Routine) - New Request Specialty Diagnoses / Procedures Referred By Contac t Referred To Contact Interventional Radiology Diagnoses Hydronephrosis due to obstruction of ureteral orifice Daya Saldana MD [address] [place] [address] Referral ID Status Reason Start Date Expiration Date V isits Requested Visits Authorized [id number] New Request 05/18/2022 06/12/2023 1 1 * Radiology (Emergency) - New Request Specialty Diagnoses / Procedures Referred By Deni t Referred To Contact Procedures US RENAL TRANSPLANT SCAN Daya Saldana MD [address] [place] [address] Referral ID Status Reason Start Date Expiration Date V isits Requested Visits Authorized [id number] New Request 05/16/2022 06/10/2023 1 1 * Consultation (Routine) - New Request Specialty Diagnoses / Procedures Referred By Contac t Referred To Contact Urology Diagnoses FAYE (acute kidney injury) Ryan Yepez MD [address] [place] [address] [address] [place] [address] Referral ID Status Reason Start Date Expiration Date V isits Requested Visits Authorized [id number] New Request 05/16/2022 06/10/2023 1 1 * MRI/CAT Scan (Routine) - New Request Specialty Diagnoses / Procedures Referred By Contac t Referred To Contact Diagnoses FAYE (acute kidney injury) Procedures CT ABDOMEN/PELVIS WITHOUT CONTRAST CHG CT SCAN,ABDOMENT AND PELVIS,W/O CONTRAST Ryan Yepez MD [address] [place] [address] [address] [place] [address] Referral ID Status Reason Start Date Expiration Date V isits Requested Visits Authorized [id number] New Request 05/16/2022 06/10/2023 1 1 * (Routine) - Pending Review Specialty Diagnoses / Procedures Referred By Contac t Referred To Contact Procedures PLATELET MONITORING PER PROTOCOL Daya Saldana MD [address] [place] [phone] Referral ID Status Reason Start Date Expiration Date V isits Requested Visits Authorized [id number] Pending Review 05/15/2022 06/09/2023 1 1 * (Routine) - Pending Review Specialty Diagnoses / Procedures Referred By Contac t Referred To Contact Procedures DVT/VTE RISK ASSESSMENT Daya Saldana MD [address] [place] [phone] Referral ID Status Reason Start Date Expiration Date V isits Requested Visits Authorized [id number] Pending Review 05/15/2022 06/09/2023 1 1 * (Routine) Specialty Diagnoses / Procedures Referred By Contac t Referred To Contact Evan Bennett MD [address] [place] [address] Referral ID Status Reason Start Date Expiration Date Visits Re quested Visits Authorized * (Routine) Specialty Diagnoses / Procedures Referred By Contac t Referred To Contact Evan Bennett MD [address] [place] [phone] Referral ID Status Reason Start Date Expiration Date Visits Re quested Visits [facility]ized [facility] Consultation (Routine) - New Request Specialty Diagnoses / Procedures Referred By Contac t Referred To Contact Sleep Medicine Diagnoses Hypoxia Kevin Prince MD [address] [place] [address] Referral ID Status Reason Start Date Expiration Date V isits Requested Visits Authorized [id number] New Request 09/10/2023 10/04/2024 1 1 * MRI/CAT Scan (Routine) - New Request Specialty Diagnoses / Procedures Referred By Deni t Referred To Contact Diagnoses Histoplasmosis Procedures CT CHEST WITHOUT CONTRAST CHG DIAGNOSTIC COMPUTED TOMOGRAPHY THORAX W/O CNTRST Kevin Prince MD [address] [place] [address] Referral ID Status Reason Start Date Expiration Date V isits Requested Visits Authorized [id number] New Request 09/10/2023 10/04/2024 1 1 * Radiology (Routine) - New Request Specialty Diagnoses / Procedures Referred By Deni t Referred To Contact Procedures US RENAL TRANSPLANT SCAN Steve Latham MBBS [address] [place] [address] Referral ID Status Reason Start Date Expiration Date V isits Requested Visits Authorized [id number] New Request 08/29/2023 09/22/2024 1 1 * (Routine) - New Request Specialty Diagnoses / Procedures Referred By Deni t Referred To Contact Procedures PLATELET MONITORING PER PROTOCOL Steve Latham MBBS [address] [place] [address] Referral ID Status Reason Start Date Expiration Date V isits Requested Visits Authorized [id number] New Request 08/28/2023 09/21/2024 1 1 * (Routine) - New Request Specialty Diagnoses / Procedures Referred By Deni edwards Referred To Contact Procedures DVT/VTE RISK ASSESSMENT Steve Latham MBBS [address] [place] [address] Referral ID Status Reason Start Date Expiration Date V isits Requested Visits Authorized [id number] New Request 08/28/2023 09/21/2024 1 1 [facility] Instructions * Patient Instructions - Christin Elizabeth APRN-ROB - 10/19/2018 9:21 AM EST You should take an extra dose of the lactulose as needed so that you are having 3-4 bowel movementsdaily. You should start the chemical dependency counseling as soon as possible. If you have questions, call the transplant social studies teacher Fidelina Pierson. in this encounter* Patient Instructions - Sophie Cary RN - 10/12/2018 11:09 AM EST You have been seen in the pre-transplant evaluation clinic by Dr. Restrepo and Sophie Cary. Sophie Cary is your pre-customer relations coordinator she can be reached at [phone] at any time for questions during the pre-transplant process. Your evaluation is complete pendin. Abdominal ultrasound. 2. 6 minute walk test. 3. Cardiology evaluation. Additionally, your plumbing technician will recommend testing to screen for coronary artery disease. This will be scheduled for you after your cardiology visit. 4. Your coordinator will be requesting record from your last dental visit, colonoscopy and EGD. 5. Please work to complete social work recommendations. Your social studies teacher will be contacting you to follow up on your progress. 6. You have also been referred for a kidney transplant. An appointment will be scheduled for you sari evaluated in the kidney transplant clinic after you have satisfied requirements dictated by [employer] company. Once your testing is complete, we [...] ___ Other Name MRN * Christin Elizabeth, COMPUTER SYSTEM TECHNICIAN-[employer] - 10/19/2018 9:00 AM EST Formatting of this note may be different from the original. History of Present Illness: Chief Complaint Patient presents with Follow-up Cirrhosis George Styles is a 48 y.o. male who presents to the [facility] Gastroenterology Clinic today regarding his diagnosis/chief complaint(s) of Cirrhosis secondary to ETOH, with ESRD follows with Dr. Orr. Currently undergoing evaluation for liver/kidney transplant. Has been seen in transplant clinic for eval. Still undergoing pre testing. Diagnosed in April 2018. Last drink was immediately prior to hospital admission in [place] for ACLF. Hospital course notable for ARF [...] (human immunodeficiency virus infection); Hyperlipidemia; Hyperthyroidism; Hypothyroidism; ND (myocardial infarction); Migraine; DARLENE (obstructive sleep apnea); [...] 3. FU 12 weeks. in this encounter* Fidelian Pierson LISWS - 10/12/2018 10:00 AM EST Formatting of this note may be different from the original. Transplant Recipient Psychosocial Evaluation Demographics: Patient is a 48 y.o., White, Single, male, who presented for a liver and kidney transplant evaluation. Pt was AOx3. Transplant Cheese Packer role/function was explained and reviewed. The patient was informed that the results of this assessment will be shared with the referring provider and the transplant team. The patient verbalized understanding of this information. The [facility] psychosocial assessment consent form has been explained to patient and has been signed. Pt is completing this evaluation with brother (David) in the Outpatient setting. NANCYK educated pt on the benefits of completing/filing advanced directives and resources were offered. Pt identifies with RESTOR[employer] jew. Pt confirms being a [place] Citizen. Pt.'s primary language is Guatemalan. Pt confirms the ability to read,write, and understand Guatemalan. Pt denies potential donors. Donor cards and [...] has valid license, does not regularly drive ([facility] recommends that he not to drive). [...] as well as referred him to pre customer relations coordinator. Pt and support demonstrated moderate understanding [...] Patient's brother David is a self employed paperhanger contractor. Additional support includes his other brother Tyshawn and his Mary live fifteen minutes away. Of note Mary is a member of technical staff for a [employer] is available to assist supervisor beam department. He confirms being comfortable asking for [...] in 2010, he was employed by the [employer]. He has access to SSDI payment (SSDI starts in November) in regards to financial means pre/ post-transplant. Pt confirms (meeting bills currently, ) being able to meet daily needs. Patient's brother asking for additional information on community resources, food stamps and [place]. Refer him to pt.'s dialysis center and the [facility]. Hereports access to Medicaid. Pt. [...] court ordered treatment after a DUI charge [facility] in [place], court ordered treatment in 2001 and in [...] by patient from his primary medical provider- [employer] patient was noted as attending an alcohol [...] He was provided with local AOD resources, [facility] AOD informational packet. Pt was referred for [...] new visit Date of service: 10/12/2018 -Referring surgical instrument technician for today's consult: -Primary Care Provider: Zuly Bruno CC: Chief Complaint Patient presents with Liver Recipient Evaluation History of Present Illness George Styles is a 48 y.o. male who presents to the [facility] liver transplant surgery clinic today for [...] EST Timed up and go 9.9 seconds Personal Financial Representative Left 52.8 pounds Right 44.9 pounds Waist circ 38.5 inches * Sophie Cary RN - 10/12/2018 10:00 AM EST Formatting of this note may be different from the original. Patient George Styles ([id number]), accompanied by his brother, was seen on [...] any further questions. Sophie GUERINN, RN Liver Spring Crater Etiology: ETOH HCC: No ETOH: Yes Last [...] Yovani Orr MD [address] [address] Status Reason Specialty Diagnoses / Procedures Referred By Contact Referred To Contact New Request Diagnoses Cirrhosis of liver with ascites, unspecified hepatic cirrhosis type Procedures US ABDOMEN RUQ/LIVER/GB Yovani Orr MD [address] [place] [address] Specialty Diagnoses / Procedures Referred By Contac t Referred To Contact Diagnoses FAYE (acute kidney injury) Procedures CT ABDOMEN/PELVIS WITHOUT CONTRAST CHG CT SCAN,ABDOMENT AND PELVIS,W/O CONTRAST Central Scheduling [address] [place] [address] Referral ID Status Reason Start Date Expiration Date V isits Requested Visits Authorized [id number] Pending Review 05/16/2022 06/10/2023 1 1 Specialty Diagnoses / Procedures Referred By Contac t Referred To Contact Diagnoses Other hydronephrosis Procedures FLUORO IMAGING FOR UROLOGY Ryan Yepez MD [address] [facility] [address] [place] [address] Referral ID Status Reason Start Date Expiration Date V isits Requested Visits Authorized [id number] New Request 07/07/2022 08/01/2023 1 1 Specialty Diagnoses / Procedures Referred By Contac t Referred To Contact Procedures DIRECT ADMIT REQUEST Steve Latham, LU [address] [place] [address] Referral ID Status Reason Start Date Expiration Date V isits Requested Visits Authorized [id number] New Request 08/28/2023 09/21/2024 1 1 Specialty Diagnoses / Procedures Referred By Contac t Referred To Contact Radiology Diagnoses DARLENE (obstructive sleep apnea) Primary hypertension (CMS/HCC) Bilateral lower extremity edema Shortness of breath Procedures Echocardiogram 2D complete Zuly Bruno NP [address] [place] [address] Referral ID Status Reason Start Date Expiration Date Visits Requested Visits Authorized [id number] Incomplete Perform Procedure 01/06/2024 07/04/2024 1 1 Specialty Diagnoses / Procedures Referred By Contac t Referred To Contact Procedures US IMAGING REGIONAL ANESTHESIA Kehinde Gutierrez MD [address] [place] [address] Referral ID Status Reason Start Date Expiration Date V isits Requested Visits Authorized [id number] New Request 01/22/2024 02/15/2025 1 1 Specialty Diagnoses / Procedures Referred By Contac t Referred To Contact Cardiovascular Medicine Diagnoses Heart failure, diastolic, acute Kelvin Pacheco MD, MBBS [address] [place] [address] Referral ID Status Reason Start Date Expiration Date V isits Requested Visits Authorized [id number] New Request 01/20/2024 02/13/2025 1 1 Specialty Diagnoses / Procedures Referred By Contac t Referred To Contact Procedures US ABDOMEN LIVER DOPPLER US ABDOMEN LIVER TRANSPLANT DOPPLER Timothy Joseph MD [address] [facility] [address] [place] [address] Referral ID Status Reason Start Date Expiration Date V isits Requested Visits Authorized [id number] New Request 01/16/2024 02/09/2025 1 1 Specialty Diagnoses / Procedures Referred By Contac t Referred To Contact Procedures DVT/VTE RISK ASSESSMENT Kelvin Pacheco MD, MBBS [address] [place] [phone] Referral ID Status Reason Start Date Expiration Date V isits Requested Visits Authorized [id number] New Request 01/16/2024 02/09/2025 1 1 Specialty Diagnoses / Procedures Referred By Contac t Referred To Contact Procedures PLATELET MONITORING PER PROTOCOL Kelvin Pacheco MD, MBBS [address] [place] [address] Referral ID Status Reason Start Date Expiration Date V isits Requested Visits Authorized [id number] New Request 01/16/2024 02/09/2025 1 1 Referral ID Status Reason Start Date Expiration Date V isits Requested Visits Authorized [id number] New Request 01/16/2024 02/09/2025 1 1 Specialty Diagnoses / Procedures Referred By Deni t Referred To Contact Procedures ECG Kelvin Pacheco MD, MBBS [address] [place] [address] Referral ID Status Reason Start Date Expiration Date V isits Requested Visits Authorized [id number] New Request 01/16/2024 02/09/2025 1 1 Advance Directives No Advanced Directives Records FoundDocuments on File Type Date Recorded Patient Lion Hunter Expl anation Advance Directives and Living Will Power of Internal Review And Audit Compliance Latest Code Status on File Code Status [...] Yovani Orr MD [address] [address] Status Reason Specialty Diagnoses / Procedures Referre d By Contact Referred To Contact Denied Diagnoses Alcoholic cirrhosis, unspecified whether ascites present Pre-transplant evaluation for liver transplant Procedures MRI ABDOMEN WITH CONTRAST NM MRI, ABDOMEN W/CONTRAST Yovani Orr MD [address] [address] Reason Comments Liver Recipient Evaluation Status Reason Specialty Diagnoses / Procedures Referred By Contact Referred To Contact New Request Transplant / Transplant Surgery Procedures PRE NEW PATIENT Yovani Orr MD [address] [address] Alfredito Restrepo MD [address] [place] [address] Reason Comments Reschedule Reason Comments Outside Medical Records Request Reason Comments Social Work Follow-up Reason Comments Kidney Stone Specialty Diagnoses / Procedures Referred By Contac t Referred To Contact Diagnoses Obstructing kidney stone, s/p kidney transplant 2019 Daya Saldana MD [address] [place] [address] [facility] [address] [place] [address] Referral ID Status Reason Start Date Expiration Date Visits Re quested Visits Authorized [id number] 1 1 Reason Comments Follow-up Reason Comments Kidney Recipient Follow-up Liver Recipient Follow-up Reason Comments Consult Reason Comments New Patient Hospital follow up Specialty Diagnoses / Procedures Referred By Contac t Referred To Contact Urology Diagnoses hosp fu with [address] prior Procedures NEW TO DOC/RET PATIENT Zuly Bruno, [employer] [address] [place] [address] Ryan Yepez MD [address] [place] [address] [address] [place] [phone] Referral ID Status Reason Start Date Expiration Date Visits Re quested Visits Authorized [id number] Closed 06/27/2022 07/22/2023 1 1 Specialty Diagnoses / Procedures Referred By Contac t Referred To Contact Diagnoses FAYE (acute kidney injury) Procedures CT ABDOMEN/PELVIS WITHOUT CONTRAST CHG CT SCAN,ABDOMENT AND PELVIS,W/O CONTRAST Central Scheduling [address] [place] [address] Referral ID Status Reason Start Date Expiration Date V isits Requested Visits Authorized [id number] Pending Review 05/16/2022 06/10/2023 1 1 Reason Comments Follow-up Specialty Diagnoses / Procedures Referred By Contac t Referred To Contact Urology Diagnoses 1 week fu post NT clamp Procedures RETURN PATIENT Zuly Bruno, ROB [address] [place] [address] Ryan Yepez MD [address] [place] [address] [address] [place] [address] Referral ID Status Reason Start Date Expiration Date Visits Requested Visits Authorized [id number] Authorized - 07/07/2022 08/01/2023 2 2 Specialty Diagnoses / Procedures Referred By Contac t Referred To Contact Diagnoses Other hydronephrosis Procedures FLUORO IMAGING FOR UROLOGY Ryan Yepez MD [address] [place] [address] [address] [place] [phone] Referral ID Status Reason Start Date Expiration Date V isits Requested Visits Authorized [id number] New Request 07/07/2022 08/01/2023 1 1 Specialty Diagnoses / Procedures Referred By Contac t Referred To Contact Urology Diagnoses 1 week fu post NT clamp Procedures RETURN PATIENT Zuly Bruno, [employer] [address] [place] [address] Ryan Yepez MD [address] [facility] [address] [place] [address] Referral ID Status Reason Start Date Expiration Date Visits Re quested Visits Authorized [id number] Closed 07/07/2022 08/01/2023 2 2 Reason Comments Liver Recipient Follow-up Reason Comments Kidney Recipient Follow-up Reason Comments Kidney Recipient Follow-up Specialty Diagnoses / Procedures Referred By Deni t Referred To Contact Diagnoses Kidney replaced by transplant Steve Latham MBBS [address] [place] [address] [facility] [address] [place] [address] Referral ID Status Reason Start Date Expiration Date Visits Re quested Visits Authorized [id number] 1 1 Specialty Diagnoses / Procedures Referred By Contdaniel t Referred To Contact Diagnoses Pleural effusion on right PNEUMONIA- HX LIVER AND KIDNEY TRANSPLANT Kevin Prince MD [address] [place] [address] [facility] [address] [place] [address] Referral ID Status Reason Start Date Expiration Date Visits Re quested Visits Authorized [id number] 1 1 Reason Comments New Patient Specialty Diagnoses / Procedures Referred By Deni t Referred To Contact Cardiovascular Medicine Diagnoses Heart failure, diastolic, acute Kelvin Pacheco MD, MBBS [address] 1[address] [place] [address] Referral ID Status Reason Start Date Expiration Date Visits Requested Visits Authorized [id number] Authorized - 01/20/2024 02/13/2025 5 5 (unrecognized sect ion and content) No Status Records FoundNo Status Records FoundNo Status Records FoundNo Status Records FoundNo Status Records FoundNo Status Records Found INFORMATION SOURCE (unrecogn ized section and content) DATE CREATED AUTHOR 01/07/2020 [facility] DATE CREATED AUTHOR AUTHOR'S ORGANIZ ATION 01/27/2021 [facility] DATE CREATED AUTHOR AUTHOR'S ORGANIZ ATION 04/13/2023 [facility] DATE CREATED AUTHOR AUTHOR'S ORGANIZ ATION 05/11/2023 [facility] DATE CREATED AUTHOR AUTHOR'S ORGANIZ ATION 04/19/2024 [facility] EPIC DATE CREATED AUTHOR AUTHOR'S ORGANIZ ATION 04/29/2024 [facility] Care Teams (unrecognized sec tion and content) Trauma Coordinator Relationship Specialty Start Date End Date Zuly Bruno CNP PCP - General 07/19/18 Comfort Rivera, [facility] [address] [facility] [address] [place] [address] Pharmacist Pharmacist 05/16/20 Angel Carpio RP,PharmD Pharmacist Pharmacist 05/16/20 Te Leigh RP,PharmD Pharmacist Pharmacist 01/09/21 Trauma Coordinator Relationship Specialty Start Date End Date Zuly Bruno CNP PCP - General 07/19/18 Comfort Rivera [facility] [address] [facility] [address] [place] [address] Pharmacist Pharmacist 05/16/20 Angel Carpio RPh,PharmD Pharmacist Pharmacist 05/16/20 eT Leigh RP,PharmD Pharmacist Pharmacist 01/09/21 Trauma Coordinator Relationship Specialty Start Date End Date Zuly Bruno CNP PCP - General 07/19/18 Trauma Coordinator Relationship Specialty Start Date End Date Zuly Bruno CNP PCP - General 07/19/18 Trauma Coordinator Relationship Specialty Start Date End Date Zuly Bruno CNP PCP - General 07/19/18 Trauma Coordinator Relationship Specialty Start Date End Date Zuly Bruno CNP PCP - General 07/19/18 Trauma Coordinator Relationship Specialty Start Date End Date Zuly Bruno CNP PCP - General 07/19/18 Trauma Coordinator Relationship Specialty Start Date End Date Zuly Bruno CNP PCP - General 07/19/18 Trauma Coordinator Relationship Specialty Start Date End Date Zuly Bruno CNP PCP - General 07/19/18 Trauma Coordinator Relationship Specialty Start Date End Date Zuly Bruno CNP PCP - General 07/19/18 Trauma Coordinator Relationship Specialty Start Date End Date Zuly Bruno CNP PCP - General 07/19/18 Trauma Coordinator Relationship Specialty Start Date End Date Zuly Bruno CNP PCP - General 07/19/18 Trauma Coordinator Relationship Specialty Start Date End Date Zuly Bruno CNP PCP - General 07/19/18 Trauma Coordinator Relationship Specialty Start Date End Date Zuly Bruno CNP PCP - General 07/19/18 Trauma Coordinator Relationship Specialty Start Date End Date BrianlatishaZuly tipton CNP PCP - General 07/19/18 Trauma Coordinator Relationship Specialty Start Date End Date Zuly Bruno CNP PCP - General 07/19/18 Trauma Coordinator Relationship Specialty Start Date End Date Zuly Bruno CNP PCP - General 07/19/18 Evan [place] [address] Infectious Disease Infectious Disease 09/09/23 Trauma Coordinator Relationship Specialty Start Date End Date Zuly Bruno CNP PCP - General 07/19/18 Evan White DO [address] [place] [address] Infectious Disease Infectious Disease 09/09/23 Trauma Coordinator Relationship Specialty Start Date End Date Zuly Bruno CNP PCP - General 07/19/18 Evan White DO [address] [place] [address] Infectious Disease Infectious Disease 09/09/23 Trauma Coordinator Relationship Specialty Start Date End Date Momo Verdugo MD PCP - General Family Medicine 05/21/23 Trauma Coordinator Relationship Specialty Start Date End Date Momo Verdugo MD PCP - General Family Medicine 05/21/23 Trauma Coordinator Relationship Specialty Start Date End Date Momo Verdugo MD PCP - General Family Medicine 05/21/23 Trauma Coordinator Relationship Specialty Start Date End Date Zuly Bruno CNP PCP - General 07/19/18 Evan White DO [facility] [place] [address] Infectious Disease Infectious Disease 09/09/23 Trauma Coordinator Relationship Specialty Start Date End Date Zuly Bruno CNP PCP - General 07/19/18 Evan White DO [address] [place] [address] Infectious Disease Infectious Disease 09/09/23 Trauma Coordinator Relationship Specialty Start Date End Date Zuly Bruno CNP PCP - General 07/19/18 Evan [place] [address] Infectious Disease Infectious Disease 09/09/23 Trauma Coordinator Relationship Specialty Start Date End Date Zuly Bruno CNP PCP - General 07/19/18 Evan White DO [facility] [place] [address] Infectious Disease Infectious Disease 09/09/23 Trauma Coordinator Relationship Specialty Start Date End Date Zuly Bruno CNP PCP - General 07/19/18 [place] [address] [place] [address] Infectious Disease Infectious Disease 09/09/23 Trauma Coordinator Relationship Specialty Start Date End Date Zuly Bruno CNP PCP - General 07/19/18 Trauma Coordinator Relationship Specialty Start Date End Date Zuly [...] Until Discontinued 0807 (Given - Provider: Mel Hampton, SAMI) 08 (Given - Provider: Josey Braun, SAMI) [...] Josey Braun RN)1754 (Given - Provider: Josey Braun, RN)2059 (Given - Provider: Carolyn Isaac, SAMI) 0742 (Given - Provider: Leon Cook RN)1502 [...] Josey Braun RN)205 (Given - Provider: Carolyn Isaac, SAMI) 0742 [...] at 1715 1735 (Given - Provider: Mel Hampton, SAMI) sodium-potassium phosphate (K-PHOS NEUTRAL) tablet 1,000 [...] MD)1999 (Given - Provider: Carolyn Isaac, SAMI) 804 (Given - Provider: Josey Braun RN)2058 [...] Oral, EVERY 2 HOURS NEEDED, Starting on Thu05/15/22 at 2209, Until Thu05/20/22 at 2110, Sore [...] Marta 05/15/22 at 2206, Until Thu05/20/22 at 0, Nausea [...] 0825 (See Alternative - Provider: Josey Braun RN)2105 (See Alternative - Provider: Carolyn Isaac RN) [...] 1800, Until Discontinued 752 (Given - Provider: iAxa Holden RN) Gabapentin (NEURONTIN) capsule 400 mg [...] (Given - Provider: Terra Heart RN)1053 ([facility] Hold - Provider: Automatic Transfer - [...] (Given - Provider: Tati Ahmadi RN) 1053 ([facility] Hold - Provider: Automatic Transfer - Reason: Transfer to a Procedural area)141 ([facility] [place] - Provider: Automatic Transfer)2008 (Given - [...] 0842 (Given - Provider: Terra Heart RN)1053 ([facility] Hold - Provider: Automatic Transfer - Reason: Transfer to a Procedural area)141 ([facility] [place] - Provider: Automatic Transfer)2008 (Given - [...] 08 (Given - Provider: Terra Heart RN)105 (JAN [...] (Given - Provider: Erica Gudino RN) 105 ([facility] Hold - Provider: Automatic Transfer - Reason: Transfer to a Procedural area)141 ([facility] [place] - Provider: Automatic Transfer) 09 (Given - Provider: Terra Heart RN) Tamsulosin HCl (FLOMAX) capsule 0.4 mg 0.4 mg, Oral, DAILY, First dose on 01/16/24 at 0900, Until Discontinued, Slow release product. Do not chew or crush 0842 (Given - Provider: Erica Gudino RN) 08 (Given - Provider: Terra Heart RN)1053 ([facility] Hold - Provider: Automatic Transfer - Reason: Transfer to a Procedural area)1414 ([facility] [place] - Provider: Automatic Transfer) 0920 [...] (Given - Provider: Terra Heart RN)1053 ([facility] Hold - Provider: Automatic Transfer - Reason: Transfer to a Procedural area)1414 ([facility] [place] - Provider: Automatic Transfer) 0920 [...] all sources in 24 hours. 1053 ([facility] Hold - Provider: Automatic Transfer - Reason: Transfer to a Procedural area)1414 ([facility] [place] - Provider: Automatic Transfer)1806 (Given [...] mg and Simethicone 20 mg) 1053 ([facility] Hold - Provider: Automatic Transfer - Reason: Transfer to a Procedural area)1414 ([facility] [place] - Provider: Automatic Transfer) guaiFENesin (ROBITUSSIN) oral solution 400 mg 400 mg, Oral, EVERY 6 HOURS NEEDED, Starting on 01/16/24 at 0202, Until 01/23/24 at 1752, Cough, Congestion 1053 ([facility] Hold - Provider: Automatic Transfer - Reason: Transfer to a Procedural area)1414 ([facility] [place] - Provider: Automatic Transfer) HYDROmorphone [...] Until 01/23/24 at 1752, Insomnia 1053 ([facility] Hold - Provider: Automatic Transfer - Reason: Transfer to a Procedural area)1414 ([facility] [place] - Provider: Automatic Transfer)2355 (Given - Provider: Tati Ahmadi, SAMI) Ondansetron (ZOFRAN) tablet 4 mg(Linked Group 1) 4 mg, Oral, EVERY 6 HOURS NEEDED, Starting on 01/16/24 at 0202, Until 01/23/24 at 1752, Nausea / Vomiting, 1st line for Nausea/Vomiting 1053 ([facility] Hold - Provider: Automatic Transfer - Reason: Transfer to a Procedural area)1414 ([facility] [place] - Provider: Automatic Transfer)1809 (See Alternative - Provider: Terra Heart, SAMI) 0430 (See Alternative - Provider: Tati Ahmadi, SAMI)1415 (Given - Provider: Terra Heart, SAMI) Ondansetron 4mg/2ml (ZOFRAN) injection 4 mg(Linked Group 1) 4 mg, Intravenous, EVERY 6 HOURS NEEDED, Starting on 01/16/24 at 0202, Until 01/23/24 at 1752, Nausea / Vomiting, 1st line for Nausea/Vomiting 1053 ([facility] Hold - Provider: Automatic Transfer - Reason: Transfer to a Procedural area)1414 ([facility] [place] - Provider: Automatic Transfer)1809 (Given [...] 01/23/24 at 1752, Constipation 1st Line 1053 ([facility] Hold - Provider: Automatic Transfer - Reason: Transfer to a Procedural area)1414 ([facility] [place] - Provider: Automatic Transfer) Prochlorperazine (COMPAZINE) injection 10 mg 10 mg, Intravenous, EVERY 6 HOURS NEEDED, Starting on 01/17/24 at 1538, Until 01/23/24 at 1752, Nausea / Vomiting, Refractory Nausea Vomiting, For IV route: dilute dose with 10mL normal saline and give by slow IV push at a rate of 5mg/min. Maximum of 40mg/day. 1053 ([facility] Hold - Provider: Automatic Transfer - Reason: Transfer to a Procedural area)1414 ([facility] [place] - Provider: Automatic Transfer)2349 (Given [...] BE BASED ON THE PRIMARY CLINICAL RECORDS. [employer] provides no warranty or guarantee of the accuracy or completeness of information in this document.
[2024-05-02 07:12] LABS: Basophils Percent Auto 0.7 % (0.2-2.0); Eosinophils Absolute Auto 0.1 10^3/uL (0.0-0.7); Eosinophils Percent Auto 1.9 % (0.9-7.0); Hemoglobin 14.8 g/dL (14.0-18.0); Immature Granulocytes Abs Auto 0.01 10^3/uL (0.00-0.03); Immature Granulocytes Pct Auto 0.2 % (0.0-0.5); Lymphocytes Absolute Auto 1.5 10^3/uL (1.2-3.8); Mean Corpuscular HGB Conc 32.9 g/dL (29.9-35.2); Mean Corpuscular Hemoglobin 29.4 pg (25.9-34.0); Mean Corpuscular Volume 89.3 fL (80.0-94.0); Mean Platelet Volume 9.8 fL (9.5-13.5); Monocytes Absolute Auto 0.4 10^3/uL (0.3-0.8); Monocytes Percent Auto 7.7 % (1.7-12.0); Neutrophils Absolute Auto 3.6 10^3/uL (1.4-6.5); Neutrophils Percent Auto 63.5 % (43.0-75.0); Platelet Count 237 10^3/uL (150-450); Red Blood Count 5.04 10^6/uL (4.70-6.10); Red Cell Distribution Width 13.3 % (11.0-15.0); White Blood Count 5.7 10^3/uL (4.0-11.0)
[2024-05-02 07:28] LABS: Creatinine Urine Random 117.97 mg/dL (20.00-300.00); Protein Creatinine Ratio Urine 0.12; Total Protein Urine Random 14.5 mg/dL (<=11.9)
[2024-05-02 08:35] LABS: Alanine Aminotransferase 23 U/L (16-63); Alkaline Phosphatase 129 U/L (46-116); Aspartate Amino Transferase 22 U/L (15-37); BUN Creatinine Ratio 12.9; Bilirubin Direct 0.3 mg/dL (0.0-0.2); Bilirubin Total 1.3 mg/dL (0.2-1.0); Calcium 9.5 mg/dL (8.5-10.1); Carbon Dioxide 27.6 mmol/L (21.0-32.0); Chloride 103 mmol/L (98-107); Estimated GFR (African America >60 (>=60); Estimated GFR (Non-African Ame >60 (>=60); Gamma Glutamyl Transpeptidase 20 U/L (15-85); Glucose 114 mg/dL (74-106); Magnesium 2.2 mg/dL (1.8-2.4); Phosphorus 3.7 mg/dL (2.6-4.7); Potassium 3.6 mmol/L (3.5-5.1); Sodium 140 mmol/L (136-145)
[2024-05-04 17:09] LABS: Tacrolimus (FK506), Blood 2.2 ng/mL (2.0-20.0)
== END 2024-05-02 06:45 | disposition home or self-care (01) ==
LOC: LAB 06:46
PROVIDERS: PCP Nurse Practitioner
DX: R79.9 Abnormal finding of blood chemistry, unspecified (principal); Z94.0 Kidney transplant status; Z94.4 Liver transplant status; Z48.298 Encounter for aftercare following other organ transplant
CPT/HCPCS: 36415; 80048; 80197; 82042; 82247; 82248; 82570; 82977; 83735; 84075; 84100; 84156; 84450; 84460; 85025

== ENCOUNTER 2024-05-09 06:34 | Outpatient (OUT) | payer MEDICARE, MEDICAID, SELFPAY ==
--- OUTSIDE RECORDS SUMMARY | 2024-05-09 06:43 | XMS_ITS ---
Patient Summarization (C-CDA 2.1 CCD) Created on: May 09, 2024 JENSEN GEORGE Feliz : 1970 Sex: Male Author Organization Sample organization Care Team Providers Care Sap Abap Programmer Name Role Phone Aichholz, Zuly Unavailable Unavailable Primary Care Provider Unavailabl e KASMANI, ROB Referring Unavailable KASMANI, ROB Referring Unavailable KASMANI, ROB Referring Unavailable RIST, RENA Referring Unavailable JOHARTANA S Referring Unavailable RIST, RENA Referring Unavailable RIST, RENA Referring Unavailable RIST, RENA Referring Unavailable RIST, RENA Referring Unavailable PEPE CASE Attending Unavailable PEPE CASE Admitting Unavailable AICHHOLZ, ZULY Referring Unavailable AICHHOLZ, ZULY Primary Care Unavailable Aichholz [facility], Zuly Primary Care Provider Miguel [facility] Shirin [facility],PharmD, Angel Unavailable Unavailab makayla Leigh [facility],PharmD, Te Unavailable Unavai lable Aicholz [facility], Zuly Primary Care Provider [phone] MIGUEL CARDONA Attending Unavailable MISC, DR BURCH Admitting Unavailable MISC, DR BURCH Consulting Unavailable AICHHOLZ, CRAFT WORKER ZULY Primary Care Unavailable MISC, DR BURCH Attending Unavailable MISC, DR BURCH Admitting Unavailable MISC, DR BURCH Consulting Unavailable AICHHOLZ, CRAFT WORKER ZULY Primary Care Unavailable MISC, DR BURCH Attending Unavailable ARCELIA PIZARRO Consulting Unavailable KE BUNRHAM Attending Unavailable KE BURNHAM Admitting Unavailable DR MÓNICA JIMENEZ Consulting Unavailable AICHHOLZ, CRAFT WORKER ZULY Primary Care Unavailable KE BURNHAM Consulting Unavailable MISC, DR BURCH Consulting Unavailable MISC, DR UBRCH Attending Unavailable AICHHOLZ, CRAFT WORKER ZULY Primary Care Unavailable MISC, DR DOCTOR Admitting Unavailable MISC, DR DOCTOR Consulting Unavailable MISC, DR DOCTOR Attending Unavailable AICHHOLZ, [facility] ZULY Primary Care Unavailable MISC, DR BURCH Admitting Unavailable MISC, DR DOCTOR Consulting Unavailable AICHHOLZ, [facility] ZULY Primary Care Unavailable MISC, DR DOCTOR Admitting Unavailable MISC, DR DOCTOR Attending Unavailable MELINDA, DR GEORGE Munoz Consulting Unavailable MELINDA, DR GEORGE Munoz Attending Unavailable AICHHOLZ, [facility] ZULY Primary Care Unavailable MELINDA, DR GEORGE Munoz Admitting Unavailable NAUN ., KE Consulting Unavailable MIRANDA, LYNDSAY Consulting Unavailable MELINDA, DR GEORGE Munoz Consulting Unavailable NAUN ., KE Attending Unavailable NAUN ., KE Admitting Unavailable AICHHOLZ, CRAFT WORKER ZULY Primary Care Unavailable NAUN ., KE Consulting Unavailable GIAN HERRING Consulting Unavailable AICHHOLZ, CRAFT WORKER ZULY Consulting Unavailable AICHHOLZ, CRAFT WORKER ZULY Attending Unavailable AICHHOLZ, CRAFT WORKER ZULY Admitting Unavailable AICHHOLZ, [facility] ZULY Primary Care Unavailable MISC, DR BURCH Consulting Unavailable MISC, DR BURCH Admitting Unavailable MISC, DOCTOR Attending Unavailable AICHHOLZ, [facility] ZULY Primary Care Unavailable MISC, DR Consulting Unavailable MISC, DR DOCTOR Attending Unavailable MISC, DR DOCTOR Admitting Unavailable AICHHOLZ, CRAFT WORKER ZULY Primary Care Unavailable MISC, DR BURCH Admitting Unavailable MISC, DR BURCH Consulting Unavailable MISC, DR DOCTOR Attending Unavailable AICHHOLZ, [facility] ZULY Primary Care Unavailable MISC, DOCTOR Admitting Unavailable MISC, DR DOCTOR Consulting Unavailable AICHHOLZ, [facility] ZULY Primary Care Unavailable MISC, DR DOCTOR Attending Unavailable MISC, DOCTOR Admitting Unavailable MISC, DR DOCTOR Consulting Unavailable AICHHOLZ, [facility] ZULY Primary Care Unavailable MISC, DR DOCTOR Attending Unavailable AICHHOLZ, CRAFT WORKER ZULY Consulting Unavailable AICHHOLZ, CRAFT WORKER ZULY Attending Unavailable AICHHOLZ, CRAFT WORKER ZULY Admitting Unavailable AICHHOLZ, [facility] ZULY Primary Care Unavailable DR MÓNICA JIMENEZ Consulting Unavailable Aichholz [facility] Zuly Primary Care Provider [phone] [facility] WHIPPLE, Evan A Unavailable Aicholz [facility] Primary [facility] Provider [facility] DO Evan A Unavailable Momo Verdugo MD Primary Care Provider [phone] Aichholz ROB Zuly Primary Care Provider [phone] AICHHOLZ, ZULY Attending Unavailable AICHHOLZ, ZULY Attending [...] Attending Unavailable AICHHOLZ, ZULY Primary Care Unavailable YEISONVELIAAY S Attending Unavailable YEISON, STEVE S Referring [...] adverse reactions (disorder) 8 [facility] Repository (20 sources) Shellfish-Derive d Products Propensity to adverse reactions to drug 9 [facility] (1 source) Shellfish Drug allergy (disorder) [facility] Repository Encounters Encounter Date Encounter Type Care Provider Facility Start: 04-18-2024 End: 04-18-2024 ambulatory ZULY BRUNO Not Available Start: 03-24-2024 End: 03-24-2024 Patient encounter procedure Angel Carpoi [facility],PharmD Pharmacy Outpatient RX [facility] Start: 03-24-2024 End: 03-24-2024 ambulatory Angel Carpio [facility],PharmD Pharmacy Outpatient RX [facility] Start: 03-22-2024 End: 03-22-2024 ambulatory JOHNNA BRINK Not Available Start: 03-17-2024 End: 03-17-2024 ambulatory JOHNNA BRINK Not Available Start: 03-14-2024 End: 03-14-2024 ambulatory FIDELINA VILLEGASY Not Available Start: 03-10-2024 End: 03-10-2024 ambulatory JOHNNA BRINK Not Available Start: 03-08-2024 End: 03-08-2024 ambulatory JOHNNA BRINK Not Available Start: 03-03-2024 End: 03-03-2024 ambulatory JOHNNA BRINK Not Available Start: 03-02-2024 End: 03-02-2024 ambulatory Meka Munoz [facility] Pharmacy Outpatient RX [facility] Start: 03-02-2024 End: 03-02-2024 Patient encounter procedure Meka Munoz [facility] Pharmacy Outpatient RX [place] Start: 03-01-2024 ambulatory ZULY MARY Facility: [facility] Start: 03-01-2024 End: 03-01-2024 ambulatory JOHNNA BRINK Not Available Start: 02-26-2024 ambulatory ZULY MARY Facility: [facility] Start: 02-26-2024 End: 02-26-2024 Office outpatient new 30 minutes Candie Almaguer MD Work Phone: [facility] Comment on above: Heart failure, diast olic, acute (Primary Dx) Start: 02-26-2024 ambulatory ZULY MARY Facility: [facility] Start: 02-25-2024 End: 02-25-2024 ambulatory FIDELINA SANCHEZ Not Available Start: 02-23-2024 End: 02-23-2024 ambulatory PALMA PALACIOS Not Available Start: 02-11-2024 End: 02-11-2024 ambulatory ZULY MARY Not Available Start: 01-16-2024 Encounter for other preprocedural examination KELVIN PACHECO [facility] Start: 01-16-2024 End: 01-23-2024 Evaluation and management of inpatient Kevin Sage MD Work Phone: [id number] Comment on above: Pleural effusion on right Start: 01-16-2024 End: 01-23-2024 Patient encounter status Kevin Sage MD Work Phone: [facility] Work Phone: Start: 01-12-2024 End: 01-12-2024 ambulatory Angel Fete RPh,PharmD Pharmacy Outpatient RX [place] Start: 01-12-2024 End: 01-12-2024 Patient encounter procedure Angel Fete RPh,PharmD Pharmacy Outpatient RX [place] Start: 01-08-2024 Clinisync Result Encounter Generic External Data Provider [facility] External [facility] Unsolicited Start: 01-08-2024 Clinisync Result Encounter Generic External Data Provider [facility] External Department Unsolicited Start: 01-06-2024 End: 01-06-2024 ambulatory ZULYTray BRUNO Not Available Start: 01-06-2024 End: 01-06-2024 Office outpatient visit 25 minutes Zuly Bruno [place] Work Phone: [facility] Comment on above: Bilateral lower extr emity edema (Primary Dx); 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); Atherosclerosis 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); Obesity (BMI 30-39.9); DARLENE (obstructive sleep apnea); Tremor; Immunocompromised ([facility] Primary hypertension ([facility]); Shortness of breath Start: 01-01-2024 Clinisync Result Encounter Generic External Data Provider [facility] External Department Unsolicited Start: 01-01-2024 Clinisync Result Encounter Generic External Data Provider [facility] External Department Unsolicited Start: 11-03-2023 End: 11-03-2023 ambulatory ZULY TANNERLATISHAOmer Not Available Start: 10-06-2023 ambulatory Angel Carpio [facility],PharmD Pharmacy Outpatient RX [place] Start: 10-06-2023 Patient encounter procedure Angel Carpio [facility],PharmD Pharmacy Outpatient RX [place] Start: 09-29-2023 [facility] Start: 09-23-2023 [facility] Start: 09-15-2023 ambulatory [facility] Facility: [facility] Start: 08-28-2023 End: 09-11-2023 Evaluation and management of inpatient Steve S Yeison MBBS Work Phone: [id number] Start: 08-28-2023 End: 08-28-2023 Office outpatient visit 25 minutes Steve S Yeison MBBS Work Phone: [facility] Comment on above: Immunosuppressed sta tus (Primary Dx); Kidney replaced by transplant; Aftercare following organ transplant; High risk medication use; Other general symptoms and signs; Abnormal blood chemistry; Hypertension secondary to other renal disorders Start: 08-28-2023 ambulatory STEVE S YEISON Facility:[facility] Start: 08-19-2023 ambulatory Meka ureda [facility] Pharmacy Outpatient RX [place] Start: 08-19-2023 Patient encounter procedure Meka Munoz [facility] Pharmacy Outpatient RX [place] Start: 06-12-2023 End: 06-12-2023 Office outpatient visit 25 minutes Steve S Yeison MBBS Work Phone: [facility] Comment on above: 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) Start: 06-12-2023 ambulatory SELF SELF Facility:[facility] Start: 06-10-2023 ambulatory Maren Bar RPh,PharmD Pharmacy Outpatient RX [place] Start: 06-10-2023 Patient encounter procedure Maren Bar RPh,PharmD Pharmacy Outpatient RX [place] Start: 05-26-2023 ambulatory ZULY [facility] Facility: [facility] Start: 04-28-2023 End: 04-29-[address] DOCTOR EVANS Facility:[facility] Start: 04-13-2023 End: 04-13-2023 ambulatory [facility] Start: 03-12-2023 ambulatory Angel Fete RPh,PharmD Pharmacy Outpatient RX [place] Start: 03-12-2023 Patient encounter procedure Angel Fete RPh,PharmD Pharmacy Outpatient RX [place] Start: 03-10-2023 ambulatory Angel Fete RPh,PharmD Pharmacy Outpatient RX [place] Start: 03-10-2023 Patient encounter procedure Angel Fete RPh,PharmD Pharmacy Outpatient RX [place] Start: 03-02-2023 End: 03-03-[address] DOCTOR EVANS Facility:[facility] Start: 01-16-2023 End: 01-16-2023 Office outpatient visit 25 minutes Daisha Max DO Work Phone: [facility] Comment on above: Abnormal blood chemi [...] MD Work Phone: [facility] Comment on above: BPH with obstruction /lower urinary tract symptoms (Primary Dx); Encounter for screening for malignant neoplasm of prostate Start: 08-28-2022 End: 08-29-2022 ambulatory ROB ZULY BRUNO Facility:[facility] Start: 08-14-2022 End: 08-15-[address] DOCTOR EVANS Facility:[facility] Start: 07-07-2022 End: 07-07-2022 Patient encounter procedure Ryan Yepez MD Work Phone: [facility] Comment on above: Other hydronephrosis (Primary Dx); [...] MD Work Phone: [facility] Comment on above: Other hydronephrosis (Primary Dx) [...] GEORGE LAWRENCE Facility:[facility] Start: 03-14-2022 ambulatory Comfort Che Miguel [facility] Work Phone: Pharmacy Outpatient RX [place] Start: 03-14-2022 Patient encounter procedure Comfort Che Miguel [facility] Work Phone: Pharmacy Outpatient RX [place] Start: 06-14-2021 End: 06-14-2021 ambulatory Comfort Chinedu Rivera [facility] Work Phone: [facility] Start: 06-14-2021 Patient encounter procedure Comfort Rivera [facility] Work Phone: [facility] Start: 01-20-2020 End: 01-27-2020 Patient encounter procedure PEPE CASE Facility:[facility] Start: 01-06-2020 End: 01-07-2020 Patient encounter procedure [facility] Start: 01-06-2020 End: 01-06-2020 Subsequent hospital visit by physician [facility] Start: 10-24-2019 End: 10-25-2019 [facility] Start: 10-24-2019 End: 10-24-2019 Subsequent hospital visit by physician [facility] Start: 08-27-2019 End: 08-28-2019 Patient encounter procedure [facility] Start: 08-27-2019 End: 08-27-2019 [facility] Start: 08-08-2019 End: 08-09-2019 [facility] Start: 08-08-2019 End: 08-08-2019 Subsequent hospital visit by physician [facility] Start: 08-03-2019 End: 08-04-2019 [facility] Start: 08-03-2019 End: 08-03-2019 Subsequent hospital visit by physician [facility] Start: 08-01-2019 End: 08-02-2019 Patient encounter procedure [facility] Start: 08-01-2019 End: 08-01-2019 Subsequent hospital visit by physician [facility] Start: 06-10-2019 End: 06-11-2019 Patient encounter procedure RENA GUDINO [facility] Start: 06-01-2019 End: 06-02-2019 [facility] Start: 01-14-2019 End: 01-15-2019 Patient encounter procedure [facility] Start: 11-17-2018 End: 11-17-2018 Patient encounter procedure Fidelina Dangelo [facility] Pre Transplant Office Comment on above: Social Work Follow-u p Start: 10-19-2018 End: 10-19-2018 Patient encounter [facility] Pre Transplant Office Comment on above: Cirrhosis [...] End: 10-13-2018 Patient encounter procedure [facility] Pre Transplant Office Comment on above: Reschedule Outside Medical Allan rds Request Start: 10-12-2018 End: 10-12-2018 Patient encounter procedure Sophie Cary [facility] Pre Transplant Office Comment on above: Alcoholic cirrhosis, unspecified whether ascites present (Primary Dx); Pre-transplant evaluation for liver transplant Start: 10-12-2018 End: 10-12-2018 Office outpatient new 60 minutes Alfredito Restrepo Work Phone: [facility] Pre Transplant Office Comment on above: Alcoholic cirrhosis, unspecified whether ascites present; ESRD (end stage renal disease) on dialysis; Pre-transplant evaluation for liver transplant Start: 10-06-2018 End: 10-06-2018 Patient encounter procedure Yovani Orr Work Phone: Department of Radiology Comment on above: Canceled (Insurance Company Redirected Pt) Start: 10-05-2018 Patient encounter status Comfort Rivera [facility] Work Phone: [facility] Medical Equipment Procedure Code Equipment Code Equipment Original Text Equipment Identifier Dates [id number] Start: 05-23-2020 [id number] Start: 04-12-2020 [id number] FDA Start: 05-17-2022 Comment on above: Description: Implant time-out completed by intra-procedural staff including this RN, certified pharmacy technician, and performing physician. The following was completed. RN reads out loud implant type/size/ expiration date, and verbalizes location. Holds package up to tech to visually verify implant details. Tech reads back package details MD verifies verbally correct implant Time-out was completed for each coil during embolization, if applicable. Goals Date Patient Goal Desired Activity /State Personal health goal Immunizations Immunization Date Immunization Notes Care Provider Zeeshan yi 11-03-2023 influenza virus vacc ine, unspecified formulation Generic Provider [facility] 11-03-2023 Moderna SARS-CoV-2 50mcg/0.5mL Booster Generic Provider [facility] Medications Current Medications Medication Drug Class(es) Dates [...] Discontinued Start: 12-30-2021 take 2 tablets by [facility] once daily allopurinol 100 MG tablet Indications: Abnormal blood chemistry take 2 tablets by mouth once daily 180 tablet 3 12/30/2021 Active Start: 01-28-2021 take 2 tablets by [facility] once daily allopurinol 100 MG tablet Indications: [...] 1 capsule by mouth once daily b nborgjg-G-syhxs acid (NEPHROCAPS) 1 MG capsule Take 1 capsule by mouth daily 0 Active aspirin 81 mg chewable tablet (20 sources) Platelet Aggregation Inhibitor, Nonsteroidal Anti-inflammatory Drug Start: 020 End: aspirin 81 MG Chew Tab chewable [...] (1 source) Quinolone Antimicrobial Start: 022 End: 022 take 1 tablet by mouth twice daily [...] ankle pain. 0 06/12/2020 06/12/2023 Discontinued lactulose 23307 mg powder for oral solution (19 sources) [...] 07/17/2018 Active take 2 tablets by [facility] three times daily at mealtime sevelamer (RENVELA) [...] mouth every Thursday and Thursday. 8 Each 5 03/04/2024 Active Start: 02-19-2024 End: 03-02-2024 take [...] Start: 08-20-2022 take 1 capsule by mo [facility] every twelve hours Tacrolimus (PROGRAF) 0.5 MG [...] EVERY 24 HOURS, First dose on Marta 5/23 at 2100, Until Discontinued Start: 05-16-2022 End: [...] itraconazole Fax results to: Dr. White - [phone] Transplant Neph - [phone] Each 09/10/2023 01/19/2024 Discontinued (Medication Reconciliation (suppress cancel msg)) Start: 09-10-2023 CUSTOM MEDICAT ION Labs to be obtained: 1- Tacrolimus level, trough - collect twice weekly until 09/24/23, then weekly until 10/08/23, them once every two weeks there after. 2- Itraconazole level - obtain once between 09/14-09/18. 3- Chem 6 - Obtain weekly while on itraconazole Fax results to: Dr. Cindy Moran [phone] Transplant [facility] - [phone] Each 0 09/10/2023 Active Diatrizoate (1 source) Start: 05-20-2022 End: 05-20-2022 diatrizoate Meglumine (Cystografin) 30 % UR solution 80 mL diphenhydrAMINE hydrochloride 25 mg oral tablet (1 source) Histamine-1 Receptor Antagonist Start: 09-03-2023 End: 09-11-2023 take 25 mg by mouth every twenty-four hours 25 mg, Oral, EVERY 24 HOURS, First dose on [facility] 09/03/23 at 1600, Until Discontinued Give [...] 09-10-2023 Start: 01-05-2023 take 1 tablet by [facility] twice daily Losartan 50 MG tablet take [...] 01/16/2023 Discontinued take 2 tablets by mo [facility] in the morning magnesium oxide (Mag-Ox) 400 MG tablet Take 2 tablets by mouth in the morning. 0 Active take 1 tablet by [facility] once daily magnesium oxide (MAG-OX) 400 MG [...] Oral, DAILY AT BEDTIME NEEDED, Starting on 2/17/24 at 0141, Until Thu01/19/24 at 0016, Insomnia [...] (ROXICODONE) tablet 10 mg polyethylene glycol 3350 76694 mg powder for oral solution (20 sources) [...] rate of 5mg/min. Maximum of 40mg/day. sennosides, group home 8.6 mg oral tablet (1 source) Start: [...] 1st line for Nausea/Vomiting [Order 2 End] Payers Date Payer Category Payer Unknown [id number] 2019 Unknown [facility] [id number] 2019-Present [id number] 2018 Medicaid MEDICAID [facility] DEPT OF JOB xxxxxxxxxxxx 2018-Present [phone] [address] [place] [address] xxxxxxxxxxxx [id number] [id number] 2018 Medicaid MEDICAID MEDICAI D [id number] 2018-Present [address] [place] [address] [id number] .[id number] 2018 Medicaid [id number]. 1.13.172.2.7.3 .713291.315 2018 Medicare MEDICARE MEDICAR E PART A AND B xxxxxxxxxxx 2018-Present [phone] [place] [address] xxxxxxxxxxx [id number] .[id number] 2018 Medicare [id number] 2018 Medicare MEDICARE MEDICAR E A AND B [id number] 2018-Present [address] [place] [address] [id number] .477666.315 2018 Medicare [id number]. 1.13.172.2.7.3 .868294.315 1971 Unknown [id number] 2.16.840.1.433404.3.579.2.173 1971 Unknown [id number] 2.16.840.1.558893.3.579.2.173 1971 Unknown [id number] 2.16.840.1.299558.3.579.2.173 1971 Unknown [id number] 2.16.840.1.156281.3.579.2.173 1971 Unknown [id number] 2.16.840.1.281355.3.579.2.173 1971 Unknown [id number] 2.16.840.1.293219.3.579.2.173 1971 Unknown [id number] 2.16.840.1.292499.3.579.2.173 1971 Unknown [id number] 2.16.840.1.326675.3.579.2.173 1971 Unknown [id number] 2.16.840.1.372628.3.579.2.647 1971 Unknown [id number] 2.16.840.1.829296.3.579.2.593 1971 Unknown [id number] 2.16.840.1.635576.3.579.2.593 1971 Unknown [id number] 2.16.840.1.098659.3.579.2.593 1971 Unknown [id number] 2.16.840.1.073504.3.579.2.593 1971 Unknown [id number] 2.16.840.1.186715.3.579.2.593 1971 Unknown [id number] 2.16.840.1.689692.3.579.2.593 1971 Unknown [id number] 2.16.840.1.282717.3.579.2.593 1971 Unknown [id number] 2.16.840.1.928553.3.579.2.593 1971 Unknown [id number] 2.16.840.1.715709.3.579.2.593 1971 Unknown [id number] 2.16.840.1.055524.3.579.2.593 1971 Unknown [id number] 2.16.840.1.395735.3.579.2.593 1971 Unknown [id number] 2.16.840.1.096599.3.579.2.593 1971 Unknown [id number] 2.16.840.1.370557.3.579.2.593 1971 Unknown [id number] 2.16.840.1.827832.3.579.2.593 1971 Unknown [id number] 2.16.840.1.271725.3.579.2.593 1971 Unknown [id number] 2.16.840.1.862423.3.579.2.125 9 1971 Unknown [id number] 2.16.840.1.335449.3.579.2.125 9 1971 Unknown [id number] 2.16.840.1.470083.3.579.2.125 9 1971 Unknown [id number] 2.16.840.1.962838.3.579.2.125 9 1971 Unknown [id number] 2.16.840.1.063435.3.579.2.125 9 1971 Unknown [id number] 2.16.840.1.759319.3.579.2.125 9 1971 Unknown [id number] 2.16.840.1.290382.3.579.2.125 9 1971 Unknown [id number] 2.16.840.1.027698.3.579.2.125 9 1971 Unknown [id number] 2.16.840.1.076128.3.579.2.125 9 1971 Unknown [id number] 2.16.840.1.296894.3.579.2.125 9 1971 Unknown [id number] 2.16.840.1.466344.3.579.2.125 9 1971 Unknown [id number] 2.16.840.1.476823.3.579.2.125 9 1971 Unknown [id number] 2.16.840.1.624315.3.579.2.125 9 1971 Unknown [id number] 2.16.840.1.820297.3.579.2.125 9 1971 Unknown [id number] 2.16.840.1.366124.3.579.2.594 1971 Unknown [id number] 2.16.840.1.974787.3.579.2.594 1971 Unknown [id number] 2.16.840.1.086809.3.579.2.594 1971 Unknown [id number] 2.16.840.1.386571.3.579.2.594 1971 Unknown [id number] 2.16.840.1.775244.3.579.2.594 1971 Unknown [id number] 2.16.840.1.220210.3.579.2.594 1971 Unknown [id number] 2.16.840.1.873232.3.579.2.594 1971 Unknown [id number] 2.16.840.1.381465.3.579.2.594 1971 Unknown [id number] 2.16.840.1.451115.3.579.2.594 1971 Unknown [id number] 2.16.840.1.950114.3.579.2.594 1971 Unknown [id number] 2.16.840.1.108514.3.579.2.594 1971 Unknown [id number] 2.16.840.1.677587.3.579.2.594 1958 Medicaid [id number] 1958 Medicare [id number] Plan of Treatment Date Care Activity Detail Author Start: 09-20-2029 Screening for malignant neoplasm of colon [facility] Start: 03-28-2025 Potassium [Moles/volume] in Serum or Plasma POTASSIUM [facility] Start: 03-21-2025 Potassium [Moles/volume] in Serum or Plasma POTASSIUM [facility] Start: 02-28-2025 Potassium [Moles/volume] in Serum or Plasma [facility] [facility] Start: 01-23-2025 Potassium [Moles/volume] in Serum or Plasma POTASSIUM [facility] Start: 08-31-2024 Screening for malignant neoplasm of lung [facility] Start: 06-17-2024 End: 06-17-2024 ambulatory [facility] Start: 06-17-2024 End: 06-17-2024 Patient encounter procedure [facility] Start: 03-22-2024 Fasting lipid profile LIPID SCREENING [facility] Start: 03-22-2024 Lipid panel [facility] Start: 02-26-2024 End: 02-26-2024 Patient encounter procedure 02/26/2024 9:30 AM EDT Office Visit [facility] [address] [place] [phone] Candie Almaguer MD [address] [place] [address] [facility] Start: 02-11-2024 End: 02-11-2024 Patient encounter procedure 02/11/2024 10:30 AM EDT Office Visit [facility] [address] [place] [phone] Zuly Bruno NP [address] [place] [phone] [facility] Start: 02-09-2024 End: 02-09-2024 Telemedicine consultation with patient 02/09/2024 3:30 PM EDT Telemedicine Infectious Diseases [facility] [address] [phone] Hakeem Alamo MD [address] [address] Infectious Diseases Care [facility] Start: 01-15-2024 End: 01-15-2024 ambulatory [facility] Start: 01-15-2024 End: 01-15-2024 Patient encounter procedure [facility] Start: 01-06-2024 End: 01-06-2026 Echocardiogram 2D complete Echocardiogram 2D complete Echocardiography Routine DARLENE (obstructive sleep apnea) Primary hypertension (CMS/HCC) Bilateral lower extremity edema Shortness of breath Expected: 01/06/2024 (Approximate), Expires: 01/06/2026 [facility] Work Phone: Comment on above: Expected: 01/06/2024 (Approximate), Expi res: 01/06/2026 Start: 01-06-2024 End: 01-06-2024 Patient encounter procedure 01/06/2024 9:00 AM EST Office Visit [facility] [address] [place] [phone] Zuly Bruno NP [address] [place] [address] [facility] Start: 12-08-2023 End: 09-07-2024 CT Chest WO contrast [facility] Work Phone: Start: 12-01-2023 COVID-19 VACCINE (2 - Moderna risk series) COVID-19 VACCINE (2 - Moderna risk series) [facility] Start: 09-23-2023 End: 09-23-2023 ambulatory [facility] Start: 09-23-2023 End: 09-23-2023 Telemedicine consultation with patient 09/23/2023 4:00 PM EDT Telemedicine Infectious Diseases Care [facility] [address] [facility] [address] [place] [phone] Hakeem Alamo MD [address] [facility] [address] [place] [address] Infectious Diseases Care [facility] Start: 09-15-2023 End: 09-10-2024 ITRACONAZOLE LEVEL [facility] Start: 08-25-2023 End: 08-25-2024 ALLOSCREEN RECIPIENT (POST TX PRA) ALLOSCREEN RECIPIENT (POST TX PRA) Lab Routine Kidney replaced by transplant Aftercare following organ transplant Immunosuppressed status High risk medication use Other general symptoms and signs Abnormal blood chemistry Expected: 08/25/2023, Expires: 08/25/2024 [facility] Comment on above: Expected: 08/25/2023, Expires: Start: 07-31-2023 Influenza vaccination [facility] Start: 06-12-2023 End: 06-12-2023 Patient encounter procedure 06/12/2023 Office Visit Transplant Surgery Yeison, Steve S, MBBS [address] [place] [address] [facility] Start: 03-11-2023 End: 03-11-2023 Telemedicine consultation with patient 03/11/2023 Telemedicine Urology Ryan Yepez MD [address] [facility] [address] [place] [phone] [facility] Start: 01-16-2023 End: 01-16-2023 Patient encounter procedure 01/16/2023 Office Visit Transplant Surgery [facility] Start: 10-31-2022 End: 10-31-2022 Patient encounter procedure 10/31/2022 Office Visit Transplant Surgery Steve Munoz, MBBS [address] [place] [address] [facility] Start: 09-10-2022 End: 09-10-2023 PSA screening PSA, SCREENING Lab Routine BPH with obstruction/lower urinary tract symptoms Encounter for screening for malignant neoplasm of prostate Expected: 09/10/2022 (Approximate), Expires: 09/10/2023 [facility] Comment on above: Expected: 09/10/2022 (Approximate), Expi res: 09/10/2023 Start: 08-11-2022 End: 08-11-2022 Patient encounter procedure 08/11/2022 Office Visit Urology Ryan Yepez MD [address] [facility] [address] [place] [phone] [facility] Start: 07-31-2022 Influenza vaccination [facility] Start: 07-07-2022 End: 07-07-2022 Patient encounter procedure 07/07/2022 Office Visit UrologRyan Batista MD [address] [facility] [address] [place] [address] [facility] [place] Start: 07-07-2022 End: 07-07-2023 FLUORO IMAGING FOR UROLOGY [facility] Comment on above: Expected: 07/07/2022, Expires: 3 1 Occurrences starti ng 07/07/2022 until 07/07/2022 Start: 06-27-2022 End: 06-27-2022 Patient encounter procedure 06/27/2022 Office Visit Urology Ryan Yepez MD [address] [facility] [address] [place] [address] [facility] [place] Start: 06-27-2022 End: 06-27-2023 Basic metabolic 2000 panel - Serum or Plasma BASIC METABOLIC PANEL Lab Routine Other hydronephrosis Expected: 06/27/2022, Expires: 06/27/2023 [facility] Comment on above: Expected: 06/27/2022, Expires: Start: 06-27-2022 End: 06-27-2022 Patient encounter procedure 06/27/2022 Appointment Computerized Tomography Scan Ryan Yepez MD [address] [place] [address] [address] [place] [address] Department of Radiology Start: 06-15-2022 End: 05-16-2023 CT Abdomen and Pelvis WO contrast CT ABDOMEN/PELVIS WITHOUT CONTRAST Imaging Routine FAYE (acute kidney injury) Expected: 06/15/2022 (Approximate), Expires: 05/16/2023 [facility] Work Phone: Comment on above: Expected: 06/15/2022 (Approximate), Expi res: 05/16/2023 Start: 06-12-2022 End: 06-12-2022 Patient encounter procedure 06/12/2022 Office Visit Transplant Surgery Steve Munoz, LU [address] [place] [address] [facility] Start: 06-11-2022 End: 06-11-2023 BK VIRUS DNA QN, PCR, PLASMA BK VIRUS DNA QN, PCR, PLASMA Lab Routine Kidney replaced by transplant Liver replaced by transplant Abnormal blood chemistry Expected: 06/11/2022, Expires: 06/11/2023 [facility] Comment on above: Expected: 06/11/2022, Expires: Start: 06-04-2022 End: 06-04-2022 Patient encounter procedure 06/04/2022 Office Visit [facility] Start: 10-18-2021 End: 10-18-2021 Patient encounter procedure 10/18/2021 Office Visit Transplant Surgery Steve Munoz, LU [address] [place] [address] [facility] Start: 07-31-2021 Influenza vaccination INFLUENZA VACCINE (#1) [facility] Start: 07-26-2021 End: 07-26-2021 Patient encounter procedure 07/26/2021 Office Visit Transplant Surgery [facility] Start: 2021 Prostate specific antigen measurement [facility] Start: 2021 Screening for malignant neoplasm of lung LUNG CANCER SCREENING [facility] Start: 2021 Zoster vaccine hzv live for subcutaneous use ZOSTER (SHINGLES) VACCINE (1 of 2) [facility] Start: 09-20-2020 Colonoscopy COLORECTAL CANCER SCREENING DISCUSSION [facility] Start: 09-20-2020 Screening for malignant neoplasm of colon [facility] Start: 07-31-2019 Influenza vaccination Flu vaccine (#1) [place], [place] Start: 05-22-2019 Annual Wellness Visit (AWV) Annual Wellness Visit (AWV) [place] Start: 04-18-2019 End: 10-19-2019 Ultrasonography of abdomen US ABDOMEN RUQ/LIVER/GB Routine Cirrhosis of liver without ascites, unspecified hepatic cirrhosis type Expected: 04/18/2019 (Approximate), Expires: 10/19/2019 [facility] Work Phone: Comment on above: Expected: 04/18/2019 (Approximate), Expi res: 10/19/2019 Start: 01-25-2019 End: 01-25-2019 Ambulatory 01/25/2019 Office Visit Gastroenterology Christin Elizabeth, BELL STAFF-CRAFT WORKER [address] [place] [address] Division of Gastroenterology and Hepatology Gavin Start: 11-19-2018 End: 11-19-2018 Ambulatory 11/19/2018 Appointment [facility] Start: 11-19-2018 End: 11-19-2018 Ambulatory [facility] Start: 10-19-2018 End: 10-19-2018 Ambulatory Ultrasound Jakob Start: 10-12-2018 End: 10-12-2019 Hemoglobin A1c/Hemoglobin.total mass fraction (Bld) HEMOGLOBIN A1C Routine Alcoholic cirrhosis, unspecified whether ascites present Pre-transplant evaluation for liver transplant Expected: 10/12/2018, Expires: 10/12/2019 [facility] Work Phone: Comment on above: Expected: 10/12/2018, Expires: 9 Start: 10-12-2018 End: 10-12-2019 TYPE AND SCREEN - NOT FOR TRANSFUSION TYPE AND SCREEN - NOT FOR TRANSFUSION Routine Alcoholic cirrhosis, unspecified whether ascites present Pre-transplant evaluation for liver transplant Expected: 10/12/2018, Expires: 10/12/2019 [facility] Work Phone: Comment on above: Expected: 10/12/2018, Expires: 9 Start: 07-31-2018 Influenza vaccination INFLUENZA VACCINE (#1) [facility] Work Phone: Start: 2011 Fasting lipid profile LIPID SCREENING [facility] Work Phone: Start: 2011 Lipid screen Lipid screen [place], [place] Start: 1990 DTaP/Tdap/Td vaccine (1 - Tdap) DTaP/Tdap/Td vaccine (1 - Tdap) [place] Start: 1990 Hepatitis B vaccination HEP B VACCINE (1 of 3 - 19+ 3-dose series) [facility] Start: 1990 Hepatitis B Vaccine (1 of 3 - Risk Recombivax 3-dose series) Hepatitis B Vaccine (1 of 3 - Risk Recombivax 3-dose series) [place] Start: 1990 Third diphtheria, tetanus and acellular pertussis (DTaP) vaccination [facility] Start: 1990 Zoster vaccine hzv live for subcutaneous use ZOSTER (SHINGLES) VACCINE (1 of 2) [facility] Start: 1990 [facility] Start: 1989 Tetanus vaccination TETANUS [facility] Start: 1986 HIV screen HIV screen [place], [place] Start: 02-17-1984 HIV screening HIV SCREENING DISCUSSION [facility] Work Phone: Start: 1983 COVID-19 VACCINE (1) COVID-19 VACCINE (1) [facility] Start: 1982 DTaP/Tdap/Td vaccine (1 - Tdap) DTaP/Tdap/Td vaccine (1 - Tdap) [place] Start: 1977 Pneumococcal 0-64 years Vaccine (1 of 3 - PCV13) Pneumococcal 0-64 years Vaccine (1 of 3 - PCV13) [place] Start: 1977 PNEUMOCOCCAL VACCINE SERIES (1 - PCV) PNEUMOCOCCAL VACCINE SERIES (1 - PCV) [facility] Start: 1977 PNEUMOCOCCAL VACCINE SERIES (1 of 2 - PCV) PNEUMOCOCCAL VACCINE SERIES (1 of 2 - PCV) [facility] Start: 1977 [facility] Start: 02-17-1976 COVID-19 VACCINE (#1) COVID-19 VACCINE (#1) [facility] Start: 02-17-1976 [facility] Start: 1971 COVID-19 VACCINE (#1) COVID-19 VACCINE (#1) [facility] Start: 1971 Hepatitis B vaccination HEP B VACCINE (1 of 3 - 3-dose series) [facility] Start: 1971 Medicare Annual Wellness (AWV) Medicare Annual Wellness (AWV) [facility] Start: 1971 Screening for malignant neoplasm of colon [facility] Start: 1971 Tetanus vaccination [facility] BK VIRUS DNA QN, PCR , PLASMA BK VIRUS DNA QN, PCR, PLASMA Lab Routine Kidney replaced by transplant Liver replaced by transplant Abnormal blood chemistry 06/12/2022 3:38 PM EDT [facility] CALCULI, URINARY (KIDNEY STONE) CALCULI, URINARY (KIDNEY STONE) Fluids Routine 05/19/2022 8:16 AM EDT [facility] Work Phone: CANNABINOIDS, QUANT (URINE)THC CONFIRMATION CANNABINOIDS, QUANT (URINE)THC CONFIRMATION Routine Alcoholic cirrhosis, unspecified whether ascites present ESRD (end stage renal disease) on dialysis Pre-transplant evaluation for liver transplant 10/12/2018 12:57 PM [facility] Work Phone: End: 09-10-2024 CHEM 6 (LYTES, BUN CREA) [facility] EBV VCA IGG AB EBV VCA IGG AB R outine Alcoholic cirrhosis, unspecified whether ascites present ESRD (end stage renal disease) on dialysis Pre-transplant evaluation for liver transplant 10/12/2018 12:57 PM [facility] Work Phone: Fungus identified in Unspecified specimen by Culture [facility] HLA TYPING (SOLID ORGAN) HLA TYPING (SOLID ORGAN) Routine Alcoholic cirrhosis, unspecified whether ascites present ESRD (end stage renal disease) on dialysis Pre-transplant evaluation for liver transplant 10/12/2018 12:57 PM [facility] Work Phone: HSV 1 AND 2 IGG ANTIBODY HSV 1 AND 2 IGG ANTIBODY Routine Alcoholic cirrhosis, unspecified whether ascites present ESRD (end stage renal disease) on dialysis Pre-transplant evaluation for liver transplant 10/12/2018 12:57 PM [facility] Work Phone: 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 specific culture [facility] PLACEMENT NEPHROSTOM Y CATHETER PERCUTANEOUS W/ IMAGE GUIDANCE PLACEMENT NEPHROSTOMY CATHETER PERCUTANEOUS W/ IMAGE GUIDANCE Imaging Routine Hydronephrosis due to obstruction of ureteral orifice FAYE (acute kidney injury) 05/17/2022 11:08 AM EDT [facility] NE POST VOID RESIDUAL NE POST VO ID RESIDUAL NE - OFFICE PERFORMED Routine BPH with obstruction/lower urinary tract symptoms Ordered: 09/10/2022 [facility] Comment on above: Ordered: 09/10/2022 PTH INTACT PTH INTACT Routi ne Alcoholic cirrhosis, unspecified whether ascites present ESRD (end stage renal disease) on dialysis Pre-transplant evaluation for liver transplant 10/12/2018 12:57 PM [facility] Work Phone: RUBEOLA IGG AB (IMMU NE STATUS) RUBEOLA IGG AB (IMMUNE STATUS) Routine Alcoholic cirrhosis, unspecified whether ascites present ESRD (end stage renal disease) on dialysis Pre-transplant evaluation for liver transplant 10/12/2018 12:57 PM [facility] Work Phone: End: 01-16-2024 Standard ECG ECG ECG Routine One Time for 1 Occurrences starting 01/16/2024 until 01/16/2024 [facility] Comment on above: One Time for 1 Occurrences starting 12/31 until 01/16/2024 End: 09-10-2024 TACROLIMUS LEVEL, TROUGH (PRE DRUG LEVEL) [facility] VARICELLA IGG AB (IM M STATUS) VARICELLA IGG AB (IMM STATUS) Routine Alcoholic cirrhosis, unspecified whether ascites present ESRD (end stage renal disease) on dialysis Pre-transplant evaluation for liver transplant 10/12/2018 12:57 PM [facility] Work Phone: Problems Active Problems Problem Classification Problem Date Documented Da te Episodic/Chronic Abdominal pain (3 sources) Generalized abdominal pain; Translations: [Generalized abdominal pain] Onset: 12-05-202 3 11-03-2023 Episodic Alcohol-related disorders (20 sources) [...] Coronary arteriosclerosis; Translations: [Atherosclerotic heart disease of [place] coronary artery without angina pectoris] Onset: 3 [...] Taking high risk medication; Translations: [Other terminal manager (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] Episodic Other and ill-defined [...] 05-10-2020 Episodic Other aftercare (2 sources) Other terminal manager (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; Translations: [OTH JAIL 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 THERAPY] Onset: 07-06-2022 Episodic Other aftercare (1 source) halfway (current) use of aspirin; Translations: [AIRBRUSH ARTIST TECHNICAL CURRENT USE OF ASPIRIN] Onset: 06-20-2022 Episodic [...] transplant] Onset: 08-28-2023 Unclassified (1 source) Other terminal manager (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; Translations: [Other chcf (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] Onset: 08-28-2023 Unclassified (1 source) Hypertension secondary to other renal disorders; Translations: [Hypertension secondary to other renal disorders] Onset: 08-28-2023 Procedures Date Procedure Procedure Detail Performing Clinician [...] Mini Khan MD Work Phone: Start: 01-22-2024 Antibody screen Nikunj Sage MD Work Phone: Start: 01-22-2024 Antibody screen ZULY CRISTINA Comment on above: Performed By: #### X M ####[facility] (DEFAULT)[address] [place] [id number] Start: 01-22-2024 Assay of magnesium Just in [...] ITRACONAZOLE LEVEL Jennifer norbert Alarcon [facility] Work Phone: Start: 01-20-2024 Oscillating [...] quantifica tion each organism Fidelina Ortiz Dorian [facility] Work Phone: Start: 01-18-2024 Echocardiography ZULY A TAJ Start: 01-18-2024 Echo tthrc r-t 2d w/wom-mode [...] AURIS SCREEN BY PCR Carol Ann Capps BELL STAFF-AUTOMOBILE TRAVEL CLUB COUNSELOR Work Phone: Start: 01-08-2024 ALL CBC WITH [...] cytometry cell surf marker techl only ea zIzy Loera MD Work Phone: Start: 09-03-2023 Radiologic exam ches t single view Izzy Loera MD Work Phone: Start: 09-03-2023 Assay of magnesium Milton Kelly MD Work Phone: Start: 09-03-2023 Hepatic function panel Evan Kelly MD Work Phone: Start: 09-02-2023 Brncc incl fluor g dnce dx w/cell washg [...] isol&prs mptv id isolate ea urine Laurel Serrnao MD, PhD Work Phone: Start: 08-29-2023 EXTRA MICRO Aric herrera MD Work Phone: Start: 08-29-2023 URINALYSIS REFLEX TO CULTURE Aric Turner MD Work Phone: Start: 08-28-2023 Radiologic exam ches t single view Aric Turner MD Work Phone: Start: 08-28-2023 DARYL AURIS SCREEN BY PCR Carol Ann Capps BELL STAFF-AUTOMOBI[employer] TRAVEL CLUB COUNSELOR Work Phone: Start: 08-28-2023 CBC AND ELECTRONIC [...] Performed By: #### C MP #### [facility] [address] [place] [address] Dr. Dwight Waters Start: 07-07-2022 Rmvl nfros [...] recipient S/P liver trans plant Comfort Rivera [facility] Work Phone: Start: 04-08-2020 H/O: liver recipient Liver tra nsplant recipient Comfort Rivera [facility] Work Phone: Start: 01-06-2020 Potassium [...] kidney transplant recipient Comfort Rivera [facility] Work Phone: Start: 06-10-2019 HEMOGLOBIN AND HEMAT OCRIT, BLOOD ROB KASMANI Start: 06-01-2019 Blood count hemoglobin ROB KASMANI Start: 03-22-2019 Lipid 1996 panel - S fabricio or Plasma Comfort Rivera [facility] Work Phone: Start: 01-14-2019 Potassium [...] 10-12-2018 End: 10-12-2018 Antibody rubeola Yovani Mejias [employer] Work Phone: Start: 10-12-2018 End: 10-12-2018 Antibody varicella-zoster Yovani Orr Work Phone: Start: 10-12-2018 End: 10-12-2018 Assay of ethanol Yovani Orr Work Phone: Start: 10-12-2018 End: 10-12-2018 Assay of ferritin Yovani Orr Work Phone: Start: 10-12-2018 End: 10-12-2018 Assay of iron Yovani Mejias [employer] Work Phone: Start: 10-12-2018 End: 10-12-2018 Assay of parathormone Yovani Orr Work Phone: Start: 10-12-2018 End: 10-12-2018 Assay of phosphatase alkaline Yovani Orr Work Phone: Start: 10-12-2018 End: 10-12-2018 Bilirubin total Yovani Orr Work Phone: Start: 10-12-2018 End: 10-12-2018 Calcium total Yovani Mejias [employer] Work Phone: Start: 10-12-2018 End: 10-12-2018 CBC, EDIF, PLATELET Yovani Mejias [employer] Work Phone: Start: 10-12-2018 End: 10-12-2018 Creatinine blood Yovani Mejias [employer] Work Phone: Start: 10-12-2018 End: 10-12-2018 Drug screening cannabinoids natural Yovani Mejias [employer] Work Phone: Start: 10-12-2018 End: 10-12-2018 Hepatitis a antibody haab Yovani Mejias [employer] Work Phone: Start: 10-12-2018 End: 10-12-2018 Hepatitis b core antibody hbcab total Yovani Mejias [employer] Work Phone: Start: 10-12-2018 End: 10-12-2018 Hepatitis b surf antibody hbsab Yovani Mejias [employer] Work Phone: Start: 10-12-2018 End: 10-12-2018 Hepatitis c antibody Yovani Mejias [employer] Work Phone: Start: 10-12-2018 End: 10-12-2018 Iaad ia hepatitis b surface antigen Yovani Mejias [employer] Work Phone: Start: 10-12-2018 End: 10-12-2018 Iaad ia hiv-1 ag w/hiv-1 & hiv-2 antbdy single Yovani Mejias [employer] Work Phone: Start: 10-12-2018 End: 10-12-2018 PSA screening Yovani Mejias [employer] Work Phone: Start: 10-12-2018 End: 10-12-2018 Thromboplastin time partial plasma/whole blood Yovani Mejias [employer] Phone: Start: 10-12-2018 End: 10-12-2018 Assay of ethanol Yovani Mejias [employer] Phone: Start: 10-12-2018 End: 10-12-2018 Drug/substance definitive [...] transplant Dece ased-donor kidney transplant recipient Steve LEIGH Work Phone: Results Test Name Value Interpretation Reference Range Facility B-TYPE NATRIURETIC PEPTIDE ( BRAIN)on 02-26-2024 Interpretation and review of laboratory results Normal [facility] Natriuretic peptide B (Bld) [Mass/Vol] 72 pg/mL Normal 0-100 [facility] Comment on above: Performed By: #### B [address]ARKING [employer] CHAUFFEUR ####[facility] (DEFAULT)[address] [place] [address] Natriuretic peptide B (Bld) [Mass/Vol] 72 pg/mL 0 - 100 pg/mL [facility] CHEM 6 (LYTES, BUN CREA)on 0 02-26-2024 Anion gap [Moles/Vol] 13 mmol/L Normal 7-17 [facility] Comment on above: Performed By: #### C HM6 ####[facility] (DEFAULT)[address] [place] [address] Anion gap [Moles/Vol] 13 mmol/L 7 - 17 mmol/L [facility] Chloride [Moles/Vol] 107 mmol/L Normal 98-108 [facility] Comment on above: Performed By: #### C HM6 ####[facility] (DEFAULT)[address] [place] [address] Chloride [Moles/Vol] 107 mmol/L 98 - 10 8 mmol/L [facility] CO2 [Moles/Vol] 25 mmol/L Normal 21-31 [facility] Comment on above: Performed By: #### C HM6 ####[facility] (DEFAULT)[address] [place] [address] CO2 [Moles/Vol] 25 mmol/L 21 - 31 mmol/L [facility] Creatinine [Mass/Vol] 1.23 mg/dL Normal 0.70-1.30 [facility] Comment on above: Performed By: #### C HM6 ####[facility] (DEFAULT)[address] [place] [address] Creatinine [Mass/Vol] 1.23 mg/dL 0.70 - 1.30 mg/dL [facility] eGFR, CKD-EPI, Male 71 - PINF [facility] Comment on above: Reported eGFR is bas ed on the CKD-EPI 2021 equation using creatinine, age, and sex. GFR/1.73 sq M.predicted among non-blacks MDRD (S/P/Bld) [Vol rate/Area] 70 mL/min/{1.73_m2} Normal >=60 [facility] Comment on above: Result Comment: Repo rted eGFR is based on the CKD-EPI 2021 equation using creatinine, age, and sex. Performed By: #### C HM6 ####[facility] (DEFAULT)[address] [facility] [place] [address] Potassium [Moles/Vol] 4.2 mmol/L Normal 3.5-5.0 [facility] Comment on above: Performed By: #### C HM6 ####[facility] (DEFAULT)[address] [facility] [place] [address] Potassium [Moles/Vol] 4.2 mmol/L 3.5 - 5.0 mmol/L [facility] Sodium [Moles/Vol] 141 mmol/L Normal 135-145 [facility] Comment on above: Performed By: #### C HM6 ####[facility] (DEFAULT)[address] [facility] [place] [address] Sodium [Moles/Vol] 141 mmol/L 135 - 145 mmol/L [facility] Urea nitrogen [Mass/Vol] 17 mg/dL Normal 7-25 [facility] Comment on above: Performed By: #### C HM6 ####[facility] (DEFAULT)[address] [facility] [place] [address] Urea nitrogen [Mass/Vol] 17 mg/dL 7 - 25 mg/dL [facility] Urea nitrogen/Creatinine [Mass ratio] 14 mg/mg Normal [facility] Comment on above: Performed By: #### C HM6 ####[facility] (DEFAULT)[address] [place] [address], [place] [address] Urea nitrogen/Creatinine [Mass ratio] 14 mg/mg [facility] No Panel Informationon 02-25 [facility] CBC,PLATELETSon 01-23-2024 Erythrocyte distribution width (RBC) [Ratio] 14.2 % 10.9 - 14.3 % [facility] Hematocrit (Bld) [Volume fraction] 37.0 % Low 39.6-48.8 [facility] Comment on above: Performed By: #### H EMO ####[facility] (DEFAULT)[address] [place] [address], [place] [address] Hemoglobin (Bld) [Mass/Vol] 12.0 g/dL Low 13.4-16.8 [facility] Comment on above: Performed By: #### H EMO ####[facility] (DEFAULT)[address] [facility] [place] [address] MCH (RBC) [Entitic mass] 28.6 pg 26.1 - 33.3 pg [facility] MCHC (RBC) [Mass/Vol] 32.4 g/dL 31.9 - 36.5 g/dL [facility] MCV (RBC) [Entitic vol] 88.1 fL Normal 79.0-94.5 [facility] Comment on above: Performed By: #### H EMO ####[facility] (DEFAULT)[address] [place] [address] Mean Cell Hgb 28.6 pg Normal 26.1-33.3 [facility] Comment on above: Performed By: #### H EMOGC ####[facility] (DEFAULT)[address] [place] [address] Mean Cell Hgb Conc 32.4 g/dL Normal 31.9-36.5 [facility] Comment on above: Performed By: #### H EMOGC ####[facility] (DEFAULT)[address] [place] [address] Platelet mean volume (Bld) [Entitic vol] 10.4 fL Normal 8.7-12.3 [facility] Comment on above: Performed By: #### H EMOGC ####[facility] (DEFAULT)[address] [place] [address] Platelets (Bld) [#/Vol] 170 10*3/uL Normal 146-337 [facility] Comment on above: Performed By: #### H EMOGC ####[facility] (DEFAULT)[address] [place] [address] RBC (Bld) [#/Vol] 4.20 10*6/uL Low 4.38-5.83 [facility] Comment on above: Performed By: #### H [facility] ####[facility] (DEFAULT)[address] [facility] [place] [address] RBC Distribution 14.2 % Normal 10.9-14.3 [facility] Comment on above: Performed By: #### H [facility] ####[facility] (DEFAULT)[address] [place] [address] WBC (Bld) [#/Vol] 3.70 10*3/uL Low 3.73-10.10 [facility] Comment on above: Performed By: #### H [facility] ####[facility] (DEFAULT)[address] [place] [address] CHEM 7 (LYTES,BUN,CREA,GLUC) on 01-23-2024 Anion gap [Moles/Vol] 14 mmol/L Normal 7-17 [facility] Comment on above: Performed By: #### NATHANIEL RAMÍREZ, HFP ####[facility] (DEFAULT)[address] [place] [address] Anion gap [Moles/Vol] 14 mmol/L 7 - 17 mmol/L [facility] Chloride [Moles/Vol] 105 mmol/L Normal 98-108 [facility] Comment on above: Performed By: #### NATHANIEL RAMÍREZ, HFP ####[facility] (DEFAULT)[address] [place] [address] Chloride [Moles/Vol] 105 mmol/L 98 - 10 8 mmol/L [facility] CO2 [Moles/Vol] 25 mmol/L Normal 21-31 [facility] Comment on above: Performed By: #### NATHANIEL RAMÍREZ, HFP ####[facility] (DEFAULT)[address] [facility] [place] [address] CO2 [Moles/Vol] 25 mmol/L 21 - 31 mmol/L [facility] Creatinine [Mass/Vol] 1.32 mg/dL High 0.70-1.30 [facility] Comment on above: Performed By: #### NATHANIEL RAMÍREZ, HFP ####[facility] (DEFAULT)[address] [facility] [place] [address] Creatinine [Mass/Vol] 1.32 mg/dL High 0.70 - 1.30 mg/dL [facility] eGFR, CKD-EPI, Male 66 - PINF [facility] Comment on above: Reported eGFR is bas ed on the CKD-EPI 2021 equation using creatinine, age, and sex. GFR/1.73 sq M.predicted among non-blacks MDRD (S/P/Bld) [Vol rate/Area] 65 mL/min/{1.73_m2} Normal >=60 [facility] Comment on above: Result Comment: Repo rted eGFR is based on the CKD-EPI 2021 equation using creatinine, age, and sex. Performed By: #### NATHANIEL RAMÍREZ, HFP ####[facility] (DEFAULT)[address] [place] [address] Glucose [Mass/Vol] 94 mg/dL Normal 70-99 [facility] Comment on above: Performed By: #### NATHANIEL RAMÍREZ, HFP ####[facility] (DEFAULT)[address] [place] [address] Glucose [Mass/Vol] 94 mg/dL 70 - 99 mg/dL [facility] Osmolality [Osmolality] 296 mosm/kg Normal 278-305 [facility] Comment on above: Performed By: #### NATHANIEL RAMÍREZ, HFP ####[facility] (DEFAULT)[address] [place] [address], [place] [address] Osmolality Calc [Osmolality] 296 [facility] Potassium [Moles/Vol] 3.8 mmol/L Normal 3.5-5.0 [facility] Comment on above: Performed By: #### NATHANIEL RAMÍREZ, HFP ####[facility] (DEFAULT)[address] [place] [address], [place] [address] Potassium [Moles/Vol] 3.8 mmol/L 3.5 - 5.0 mmol/L [facility] Sodium [Moles/Vol] 140 mmol/L Normal 135-145 [facility] Comment on above: Performed By: #### NATHANIEL RAMÍREZ, HFP ####[facility] (DEFAULT)[address] [facility] [place] [address] Sodium [Moles/Vol] 140 mmol/L 135 - 145 [facility] Urea nitrogen [Mass/Vol] 23 mg/dL Normal 7-25 [facility] Comment on above: Performed By: #### NATHANIEL RAMÍREZ, HFP ####[facility] (DEFAULT)[address] [place] [address] Urea nitrogen [Mass/Vol] 23 mg/dL 7 - 25 mg/dL [facility] Urea nitrogen/Creatinine [Mass ratio] 17 mg/mg Normal [facility] Comment on above: Performed By: #### NATHANIEL RAMÍREZ, HFP ####[facility] (DEFAULT)[address] [place] [address] Urea nitrogen/Creatinine [Mass ratio] 17 mg/mg [facility] GLUCOSE POCon 01-23-2024 Glucose [Mass/Vol] 191 mg/dL High 70 - 99 mg/dL [facility] Glucose [Mass/Vol] 88 mg/dL 70 - 99 mg/dL [facility] Interpretation and review of laboratory results Abnormal [facility] HEPATIC FUNCTION PANELon Albumin [Mass/Vol] 3.9 g/dL Normal 3.5-5.0 [facility] Comment on above: Performed By: #### NATHANIEL RAMÍREZ, HFP ####[facility] (DEFAULT)[address] [facility] [place] [address] Albumin [Mass/Vol] 3.9 g/dL 3.5 - 5.0 g/dL [facility] ALP [Catalytic activity/Vol] 83 U/L Normal 32-126 [facility] Comment on above: Performed By: #### M NATHANIEL BLOOM, HFP ####[facility] (DEFAULT)[address] [place] [address] ALP [Catalytic activity/Vol] 83 U/L 32 - 126 U/L [facility] ALT [Catalytic activity/Vol] 9 U/L Low 10-52 [facility] Comment on above: Performed By: #### M TJ BLOOM7, HFP ####[facility] (DEFAULT)[address] [place] [address] ALT [Catalytic activity/Vol] 9 U/L Low 10 - 52 U/L [facility] AST [Catalytic activity/Vol] 17 U/L Normal 10-39 [facility] Comment on above: Performed By: #### M NATHANIEL BLOOM, HFP ####[facility] (DEFAULT)[address] [facility] [place] [address] AST [Catalytic activity/Vol] 17 U/L 10 - 39 U/L [facility] Bilirubin [Mass/Vol] 1.6 mg/dL High <1.5 [facility] Comment on above: Performed By: #### M HELEN BLOOMM7, HFP ####[facility] (DEFAULT)[address] [facility] [place] [address] Bilirubin [Mass/Vol] 1.6 mg/dL High NINF - 1.5 mg/dL [facility] Bilirubin.direct [Mass/Vol] 0.4 mg/dL High NINF - 0.3 mg/dL [facility] Bilirubin.indirect [Mass/Vol] 0.4 mg/dL High <0.3 [facility] Comment on above: Performed By: #### M HELEN BLOOMM7, HFP ####[facility] (DEFAULT)[address] [facility] [place] [address] Protein [Mass/Vol] 6.6 g/dL Normal 6.4-8.3 [facility] Comment on above: Performed By: #### NATHANIEL RAMÍREZ, HFP ####[facility] (DEFAULT)[address] [address] Protein [Mass/Vol] 6.6 g/dL 6.4 - 8.3 g/dL [facility] ITRACONAZOLE LEVELon 024 Hydroxyitraconazole [Mass/Vol] 7.6 mcg/mL [facility] Comment on above: REFERENCE VALUE No therapeutic range established; activity and serum concentration are similar to parent drug. ADDITIONAL INFORMATION This test was developed and its performance characteristics determined by [facility] in a manner consistent with CLIA requirements. This test has not been cleared or approved by the U.S. Food and Drug Administration. Test Performed by: [facility] [place] [address] [place] [address] Flight Communications Officer: Rosendo Bose M.D. Ph.D.; CLIA# [id number] Itraconazole [Mass/Vol] 6.0 mcg/mL [facility] Comment on above: REFERENCE VALUE >0.5 (localized infection), >1.0 (systemic infection) [facility] MAGNESIUMon 01-23-2024 Interpretation and review of laboratory results Normal [facility] Magnesium [Mass/Vol] 1.8 mg/dL Normal 1.6-2.6 [facility] Comment on above: Performed By: #### NATHANIEL RAMÍREZ, HFP ####[facility] (DEFAULT)[address] [address] Magnesium [Mass/Vol] 1.8 mg/dL 1.6 - 2 .6 mg/dL [facility] No Panel Informationon 01-23 Interpretation and review of laboratory results Abnormal [facility] POC Sample Type CAPBL [facility] Test performed at ad dress of the patient encounter. [facility] TACROLIMUS LEVEL, TROUGH (NE E DRUG LEVEL)on 01-23-2024 Interpretation and review of laboratory results Normal [facility] Tacrolimus (Bld) [Mass/Vol] 7.0 ng/mL Bone Marrow Transplant: 4.0-12.0, Therapeutic: 5.0-15.0 [facility] Tacrolimus, Trough 7.0 ng/mL Normal Bone Susana ow Transplant: 4.0-12.0, Therapeutic: 5.0-15.0 [facility] Comment on above: Order Comment: Pleas e draw at specified interval PRIOR to dose. Do not hold dose to wait for level. Specimens batched twice per day, (M-F) and once per day weekendsMethod performed is a chemiluminescent microparticle immunoasssay on the [employer] i2000.The range is based on experience at [facility] and users should be aware that target concentrations vary widely depending on concomitant therapy, time post-transplant, and desired degree of immunosuppression. Performed By: #### T ACRO ####[facility] (DEFAULT)[address] [place] [address] Method performed is a chemiluminescent microparticle immunoasssay on the [employer] i2000. The range is based on experience at [facility] and users should be aware that target concentrations vary widely depending on concomitant therapy, time post-transplant, and desired degree of immunosuppression. [facility] CARDIAC RHYTHM (SCANNED)on 0 01-22-2024 [facility] CBC,PLATELETSon 01-22-2024 Erythrocyte distribution width (RBC) [Ratio] 14.1 % 10.9 - 14.3 % [facility] Hematocrit (Bld) [Volume fraction] 41.5 % Normal 39.6-48.8 [facility] Comment on above: Performed By: #### H EMOGC ####[facility] (DEFAULT)[address] [place] [address] Hemoglobin (Bld) [Mass/Vol] 13.3 g/dL Low 13.4-16.8 [facility] Comment on above: Performed By: #### H EMOGC ####[facility] (DEFAULT)[address] [place] [address] MCH (RBC) [Entitic mass] 27.8 pg 26.1 - 33.3 pg [facility] MCHC (RBC) [Mass/Vol] 32.0 g/dL 31.9 - 36.5 g/dL [facility] MCV (RBC) [Entitic vol] 86.8 fL Normal 79.0-94.5 [facility] Comment on above: Performed By: #### H EMOGC ####[facility] (DEFAULT)[address] [place] [address] Mean Cell Hgb 27.8 pg Normal 26.1-33.3 [facility] Comment on above: Performed By: #### H EMOGC ####[facility] (DEFAULT)[address] [place] [address] Mean Cell Hgb Conc 32.0 g/dL Normal 31.9-36.5 [facility] Comment on above: Performed By: #### H EMOGC ####[facility] (DEFAULT)[address] [place] [address] Platelet mean volume (Bld) [Entitic vol] 10.5 fL Normal 8.7-12.3 [facility] Comment on above: Performed By: #### H EMOGC ####[facility] (DEFAULT)[address] [place] [address] Platelets (Bld) [#/Vol] 186 10*3/uL Normal 146-337 [facility] Comment on above: Performed By: #### H EMOGC ####[facility] (DEFAULT)[address] [facility] [place] [address] RBC (Bld) [#/Vol] 4.78 10*6/uL Normal 4.38-5.83 [facility] Comment on above: Performed By: #### H EMO ####[facility] (DEFAULT)[address] [facility] [place] [address] RBC Distribution 14.1 % Normal 10.9-14.3 [facility] Comment on above: Performed By: #### H [facility] ####[facility] (DEFAULT)[address] [place] [address] WBC (Bld) [#/Vol] 3.74 10*3/uL Normal 3.73-10.10 [facility] Comment on above: Performed By: #### H [facility] ####[facility] (DEFAULT)[address] [place] [address] CHEM 7 (LYTES,BUN,CREA,GLUC) on 01-22-2024 Anion gap [Moles/Vol] 13 mmol/L Normal 7-17 [facility] Comment on above: Performed By: #### NATHANIEL RAMÍREZ ####[facility] (DEFAULT)[address] [place] [address] Chloride [Moles/Vol] 109 mmol/L High 98-108 [facility] Comment on above: Performed By: #### NATHANIEL RAMÍREZ ####[facility] (DEFAULT)[address] [place] [address] CO2 [Moles/Vol] 23 mmol/L Normal 21-31 [facility] Comment on above: Performed By: #### NATHANIEL RAMÍREZ ####[facility] (DEFAULT)[address] [place] [address] Creatinine [Mass/Vol] 1.10 mg/dL Normal 0.70-1.30 [facility] Comment on above: Performed By: #### NATHANIEL RAMÍREZ ####[facility] (DEFAULT)[address] [place] [address], [place] [address] eGFR, CKD-EPI, Male 82 - PINF [facility] Comment on above: Reported eGFR is bas ed on the CKD-EPI 2021 equation using creatinine, age, and sex. GFR/1.73 sq M.predicted among non-blacks MDRD (S/P/Bld) [Vol rate/Area] 81 mL/min/{1.73_m2} Normal >=60 [facility] Comment on above: Result Comment: Repo rted eGFR is based on the CKD-EPI 2021 equation using creatinine, age, and sex. Performed By: #### NATHANIEL RAMÍREZ ####[facility] (DEFAULT)[address] [place] [address] Glucose [Mass/Vol] 84 mg/dL Normal 70-99 [facility] Comment on above: Performed By: #### NATHANIEL RAMÍREZ ####[facility] (DEFAULT)[address] [place] [address] Osmolality [Osmolality] 295 mosm/kg Normal 278-305 [facility] Comment on above: Performed By: #### NATHANIEL RAMÍREZ ####[facility] (DEFAULT)[address] [place] [address] Osmolality Calc [Osmolality] 295 [facility] Potassium [Moles/Vol] 4.0 mmol/L Normal 3.5-5.0 [facility] Comment on above: Performed By: #### TJ RAMÍREZ7 ####[facility] (DEFAULT)[address] [place] [address] Sodium [Moles/Vol] 141 mmol/L Normal 135-145 [facility] Comment on above: Performed By: #### TJ RAMÍREZ7 ####[facility] (DEFAULT)[address] [place] [address] Urea nitrogen [Mass/Vol] 16 mg/dL Normal 7-25 [facility] Comment on above: Performed By: #### NATHANIEL RAMÍREZ ####[facility] (DEFAULT)[address] [place] [address] Urea nitrogen/Creatinine [Mass ratio] 15 mg/mg Normal [facility] Comment on above: Performed By: #### NATHANIEL RAMÍREZ ####[facility] (DEFAULT)[address] [place] [address] MAGNESIUMon 01-22-2024 Interpretation and review of laboratory results Normal [facility] Magnesium [Mass/Vol] 2.0 mg/dL Normal 1.6-2.6 [facility] Comment on above: Performed By: #### NATHANIEL RAMÍREZ ####[facility] (DEFAULT)[address] [place] [address] No Panel Informationon 01-22 Interpretation and review of laboratory results Abnormal [facility] PT,INR,PTTon 01-22-2024 aPTT Coag (Bld) [Time] 29.2 s Normal 24.0-34.3 [facility] Comment on above: Performed By: #### P TPTT ####[facility] (DEFAULT)[address] [place] [address] aPTT Coag (PPP) [Time] 29.2 s [facility] INR Coag (Bld) [Relative time] 1.1 {INR} 0.9 - 1.1 [facility] INR Coag (PPP) [Relative time] 1.1 {INR} Normal 0.9-1.1 [facility] Comment on above: Performed By: #### P TPTT ####[facility] (DEFAULT)[address] [place] [address] PT Coag (PPP) [Time] 14.3 s High 11.9-14.2 [facility] Comment on above: Performed By: #### P TPTT ####[facility] (DEFAULT)[address] [place] [address] TACROLIMUS LEVEL, TROUGH (NE E DRUG LEVEL)Ordered By: Sheree Jensen on 01-22-2024 Interpretation and review of laboratory results Normal [facility] Tacrolimus (Bld) [Mass/Vol] 7.9 ng/mL Bone Marrow Transplant: 4.0-12.0, Therapeutic: 5.0-15.0 [facility] Method performed is a chemiluminescent microparticle immunoasssay on the [employer] i2000. The range is based on experience at [facility] and users should be aware that target concentrations vary widely depending on concomitant therapy, time post-transplant, and desired degree of immunosuppression. [facility] TACROLIMUS LEVEL, TROUGH (NE E DRUG LEVEL)on 01-22-2024 Tacrolimus, Trough 7.9 ng/mL Normal Bone Susana ow Transplant: 4.0-12.0, Therapeutic: 5.0-15.0 [facility] Comment on above: Order Comment: Pleas e draw at specified interval PRIOR to dose. Do not hold dose to wait for level. Specimens batched twice per day, (M-F) and once per day weekendsMethod performed is a chemiluminescent microparticle immunoasssay on the [employer] i2000.The range is based on experience at [facility] and users should be aware that target concentrations vary widely depending on concomitant therapy, time post-transplant, and desired degree of immunosuppression. Performed By: #### T ACRO ####[facility] (DEFAULT)[address] [place] [address] TYPE AND SCREENon 01-22-2024 ABO/RH(D) TYPE Positive Normal [facility] Comment on above: Performed By: #### X M ####[facility] (DEFAULT)[address] [place] [address] ABO/RH(D) TYPE Positive [facility] [place] Unspecified body regionon 01-22-2024 Radiology Study observation (narrative) [facility] Unspecified body regionOr dered By: Unassigned Pacs on 01-22-2024 [facility] Work Phone: CBC,PLATELETSon 01-21-2024 Erythrocyte distribution width (RBC) [Ratio] 14.0 % 10.9 - 14.3 % [facility] Hematocrit (Bld) [Volume fraction] 39.4 % Low 39.6-48.8 [facility] Comment on above: Performed By: #### H EMOGC ####[facility] (DEFAULT)[address] [place] [address] Hemoglobin (Bld) [Mass/Vol] 12.7 g/dL Low 13.4-16.8 [facility] Comment on above: Performed By: #### H EMOGC ####[facility] (DEFAULT)[address] [place] [address] MCH (RBC) [Entitic mass] 28.0 pg 26.1 - 33.3 pg [facility] MCHC (RBC) [Mass/Vol] 32.2 g/dL 31.9 - 36.5 g/dL [facility] [facility] MCV (RBC) [Entitic vol] 87.0 fL Normal 79.0-94.5 [facility] Comment on above: Performed By: #### H EMO ####[facility] (DEFAULT)[address] [place] [address] Mean Cell Hgb 28.0 pg Normal 26.1-33.3 [facility] Comment on above: Performed By: #### H EMOGC ####[facility] (DEFAULT)[address] [place] [address] 90042 Mean Cell Hgb Conc 32.2 g/dL Normal 31.9-36.5 [facility] Comment on above: Performed By: #### H EMOGC ####[facility] (DEFAULT)[address] [place] [address] Platelet mean volume (Bld) [Entitic vol] 10.2 fL Normal 8.7-12.3 [facility] Comment on above: Performed By: #### H EMOGC ####[facility] (DEFAULT)[address] [facility] [place] [address] Platelets (Bld) [#/Vol] 157 10*3/uL Normal 146-337 [facility] Comment on above: Performed By: #### H EMO ####[facility] (DEFAULT)[address] [place] [address] RBC (Bld) [#/Vol] 4.53 10*6/uL Normal 4.38-5.83 [facility] Comment on above: Performed By: #### H EMO ####[facility] (DEFAULT)[address] [facility] [place] [address] RBC Distribution 14.0 % Normal 10.9-14.3 [facility] Comment on above: Performed By: #### H [facility] ####[facility] (DEFAULT)[address] [place] [address] WBC (Bld) [#/Vol] 3.42 10*3/uL Low 3.73-10.10 [facility] Comment on above: Performed By: #### [facility] ####[facility] (DEFAULT)[address] [place] [address] CHEM 7 (LYTES,BUN,CREA,GLUC) on 01-21-2024 Anion gap [Moles/Vol] 12 mmol/L Normal 7-17 [facility] Comment on above: Performed By: #### NATHANIEL RMAÍREZ ####[facility] (DEFAULT)[address] [facility] [place] [address] Chloride [Moles/Vol] 107 mmol/L Normal 98-108 [facility] Comment on above: Performed By: #### NATHANIEL RAMÍREZ ####[facility] (DEFAULT)[address] [facility] [place] [address] CO2 [Moles/Vol] 26 mmol/L Normal 21-31 [facility] Comment on above: Performed By: #### NATHANIEL RAMÍREZ ####[facility] (DEFAULT)[address] [place] [address] Creatinine [Mass/Vol] 1.11 mg/dL Normal 0.70-1.30 [facility] Comment on above: Performed By: #### TJ RAMÍREZ7 ####[facility] (DEFAULT)[address] [place] [address] eGFR, CKD-EPI, Male 80 - PINF [facility] Comment on above: Reported eGFR is bas ed on the CKD-EPI 2021 equation using creatinine, age, and sex. GFR/1.73 sq M.predicted among non-blacks MDRD (S/P/Bld) [Vol rate/Area] 80 mL/min/{1.73_m2} Normal >=60 [facility] Comment on above: Result Comment: Repo rted eGFR is based on the CKD-EPI 2021 equation using creatinine, age, and sex. Performed By: #### NATHANIEL RAMÍREZ ####[facility] (DEFAULT)[address] [place] [address] Glucose [Mass/Vol] 93 mg/dL Normal 70-99 [facility] Comment on above: Performed By: #### NATHANIEL RAMÍREZ ####[facility] (DEFAULT)[address] [place] [address] Osmolality [Osmolality] 295 mosm/kg Normal 278-305 [facility] Comment on above: Performed By: #### TJ RAMÍREZ7 ####[facility] (DEFAULT)[address] [place] [address] Osmolality Calc [Osmolality] 295 [facility] Potassium [Moles/Vol] 3.9 mmol/L Normal 3.5-5.0 [facility] Comment on above: Performed By: #### TJ RAMÍREZ7 ####[facility] (DEFAULT)[address] [place] [address], [place] [address] Sodium [Moles/Vol] 141 mmol/L Normal 135-145 [facility] Comment on above: Performed By: #### Rod MERLE CHM7 ####[facility] (DEFAULT)[address] [place] [address] Urea nitrogen [Mass/Vol] 15 mg/dL Normal 7-25 [facility] Comment on above: Performed By: #### M MERLE CHM7 ####[facility] (DEFAULT)[address] [place] [address] Urea nitrogen/Creatinine [Mass ratio] 14 mg/mg Normal [facility] Comment on above: Performed By: #### M MERLE CHM7 ####[facility] (DEFAULT)[address] [place] [address] Cardiac catheterization stud yOrdered By: Kelvin Donohue on 01-21-2024 Body surface area Derived from formula 2.08 m2 [facility] Work Phone: [facility] Work Phone: Cardiac catheterization stud [...] with fistula occlusion Kelvin Donohue MD, MPH [employer]. Section of Advanced Heart Failure and Transplantation Division of Cardiovascular Diseases [facility] [email or web address] INVASIVE CARDIOVASCULAR PROC EDUREon 01-21-2024 INVASIVE CARDIOVASCULAR PROCEDURE Normal [facility] MAGNESIUMon 01-21-2024 Magnesium [Mass/Vol] 1.5 mg/dL Low 1.6-2.6 [facility] Comment on above: Performed By: #### M MERLE, CHM7 ####[facility] (DEFAULT)[address] [place] [phone] No Panel Informationon 01-21 Interpretation and review of laboratory results Abnormal [facility] TACROLIMUS LEVEL, TROUGH (NE E DRUG LEVEL)on 01-21-2024 Interpretation and review of laboratory results Normal [facility] Tacrolimus (Bld) [Mass/Vol] 7.2 ng/mL Bone Marrow Transplant: 4.0-12.0, Therapeutic: 5.0-15.0 [facility] Tacrolimus, Trough 7.2 ng/mL Normal Bone Susana ow Transplant: 4.0-12.0, Therapeutic: 5.0-15.0 [facility] Comment on above: Order Comment: Pleas e draw at specified interval PRIOR to dose. Do not hold dose to wait for level. Specimens batched twice per day, (M-F) and once per day weekendsMethod performed is a chemiluminescent microparticle immunoasssay on the [employer] i2000.The range is based on experience at [facility] and users should be aware that target concentrations vary widely depending on concomitant therapy, time post-transplant, and desired degree of immunosuppression. Performed By: #### T ACRO ####[facility] (DEFAULT)[address] [place] [address] Method performed is a chemiluminescent microparticle immunoasssay on the [employer] i2000. The range is based on experience at [facility] and users should be aware that target concentrations vary widely depending on concomitant therapy, time post-transplant, and desired degree of immunosuppression. [facility] CBC,PLATELETSon 01-20-2024 Erythrocyte distribution width (RBC) [Ratio] 13.8 % 10.9 - 14.3 % [facility] Hematocrit (Bld) [Volume fraction] 38.9 % Low 39.6-48.8 [facility] Comment on above: Performed By: #### H EMOGC ####[facility] (DEFAULT)[address] [place] [address] Hemoglobin (Bld) [Mass/Vol] 12.5 g/dL Low 13.4-16.8 [facility] Comment on above: Performed By: #### H EMOGC ####[facility] (DEFAULT)[address] [place] [address] MCH (RBC) [Entitic mass] 28.0 pg 26.1 - 33.3 pg [facility] MCHC (RBC) [Mass/Vol] 32.1 g/dL 31.9 - 36.5 g/dL [facility] MCV (RBC) [Entitic vol] 87.2 fL Normal 79.0-94.5 [facility] Comment on above: Performed By: #### H EMOGC ####[facility] (DEFAULT)[address] [place] [address] Mean Cell Hgb 28.0 pg Normal 26.1-33.3 [facility] Comment on above: Performed By: #### H EMOGC ####[facility] (DEFAULT)[address] [place] [address] Mean Cell Hgb Conc 32.1 g/dL Normal 31.9-36.5 [facility] Comment on above: Performed By: #### H EMOGC ####[facility] (DEFAULT)[address] [place] [address] Platelet mean volume (Bld) [Entitic vol] 10.2 fL Normal 8.7-12.3 [facility] Comment on above: Performed By: #### H EMOGC ####[facility] (DEFAULT)[address] [place] [address] Platelets (Bld) [#/Vol] 166 10*3/uL Normal 146-337 [facility] Comment on above: Performed By: #### H EMO ####[facility] (DEFAULT)[address] [facility] [place] [address] RBC (Bld) [#/Vol] 4.46 10*6/uL Normal 4.38-5.83 [facility] Comment on above: Performed By: #### H EMO ####[facility] (DEFAULT)[address] [facility] [place] [address] RBC Distribution 13.8 % Normal 10.9-14.3 [facility] Comment on above: Performed By: #### H [facility] ####[facility] (DEFAULT)[address] [place] [address] WBC (Bld) [#/Vol] 3.79 10*3/uL Normal 3.73-10.10 [facility] Comment on above: Performed By: #### H [facility] ####[facility] (DEFAULT)[address] [place] [address] CHEM 7 (LYTES,BUN,CREA,GLUC) on 01-20-2024 Anion gap [Moles/Vol] 12 mmol/L Normal 7-17 [facility] Comment on above: Performed By: #### M MERLE CHM7, HFP ####[facility] (DEFAULT)[address] [place] [address] Chloride [Moles/Vol] 105 mmol/L Normal 98-108 [facility] Comment on above: Performed By: #### M MERLE, CHM7, HFP ####[facility] (DEFAULT)[address] [place] [address] CO2 [Moles/Vol] 28 mmol/L Normal 21-31 [facility] Comment on above: Performed By: #### M MERLE, CHM7, HFP ####[facility] (DEFAULT)[address] [place] [address] Creatinine [Mass/Vol] 1.12 mg/dL Normal 0.70-1.30 [facility] Comment on above: Performed By: #### NATHANIEL RAMÍREZ, HFP ####[facility] (DEFAULT)[address] [place] [address] eGFR, CKD-EPI, Male 79 - PINF [facility] Comment on above: Reported eGFR is bas ed on the CKD-EPI 2021 equation using creatinine, age, and sex. GFR/1.73 sq M.predicted among non-blacks MDRD (S/P/Bld) [Vol rate/Area] 79 mL/min/{1.73_m2} Normal >=60 [facility] Comment on above: Result Comment: Repo rted eGFR is based on the CKD-EPI 202 equation using creatinine, age, and sex. Performed By: #### NATHANIEL RAMÍREZ, HFP ####[facility] (DEFAULT)[address] [place] [address] Glucose [Mass/Vol] 88 mg/dL Normal 70-99 [facility] Comment on above: Performed By: #### NATHANIEL RAMÍREZ, HFP ####[facility] (DEFAULT)[address] [place] [address] Osmolality [Osmolality] 294 mosm/kg Normal 278-305 [facility] Comment on above: Performed By: #### NATHANIEL RAMÍREZ, HFP ####[facility] (DEFAULT)[address] [place] [address] Osmolality Calc [Osmolality] 294 [facility] Potassium [Moles/Vol] 3.8 mmol/L Normal 3.5-5.0 [facility] Comment on above: Performed By: #### NATHANIEL RAMÍREZ, HFP ####[facility] (DEFAULT)[address] [place] [address] Sodium [Moles/Vol] 141 mmol/L Normal 135-145 [facility] Comment on above: Performed By: #### NATHANIEL RAMÍREZ, HFP ####[facility] (DEFAULT)[address] [place] [address] Urea nitrogen [Mass/Vol] 15 mg/dL Normal 7-25 [facility] Comment on above: Performed By: #### M NATHANIEL BLOOM, HFP ####[facility] (DEFAULT)[address] [place] [address] Urea nitrogen/Creatinine [Mass ratio] 13 mg/mg Normal [facility] Comment on above: Performed By: #### M NATHANIEL BLOOM, HFP ####[facility] (DEFAULT)[address] [place] [address] Cardiac catheterization stud yon 01-20-2024 Radiology Study observation (narrative) [facility] EBV BY PCR, QUANTITATIVE,BLO ODOrdered By: Charlotte Jensen on 01-20-2024 EBV DNA ESTELITA+probe (Unsp spec) [#/Vol] NINF [facility] Interpretation and review of laboratory results Normal [facility] This test was perfor med using a real time PCR assay. The dynamic range for this assay is 1000-5,000,000 IU/mL. A result <1000 IU/mL does not rule out the presence of EBV DNA in quantities below the sensitivity of this assay. This test was developed and its performance characteristics determined by [facility]. It has not been cleared or approved by the FDA. The laboratory is regulated under CLIA as qualified to perform high-complexity testing. This test is used for clinical purposes. It should not be regarded as investigational or for research. [facility] HEPATIC FUNCTION PANELon Albumin [Mass/Vol] 3.7 g/dL Normal 3.5-5.0 [facility] Comment on above: Performed By: #### M NATHANIEL BLOOM, HFP ####[facility] (DEFAULT)[address] [place] [address] ALP [Catalytic activity/Vol] 73 U/L Normal 32-126 [facility] Comment on above: Performed By: #### M NATHANIEL BLOOM, HFP ####[facility] (DEFAULT)[address] [place] [address] ALT [Catalytic activity/Vol] 12 U/L Normal 10-52 [facility] Comment on above: Performed By: #### NATHANIEL RAMÍREZ, HFP ####[facility] (DEFAULT)[address] [place] [address] AST [Catalytic activity/Vol] 19 U/L Normal 10-39 [facility] Comment on above: Performed By: #### NATHANIEL RAMÍREZ, HFP ####[facility] (DEFAULT)[address] [place] [address] Bilirubin [Mass/Vol] 2.1 mg/dL High <1.5 [facility] Comment on above: Performed By: #### NATHANIEL RAMÍREZ, HFP ####[facility] (DEFAULT)[address] [place] [address] Bilirubin.direct [Mass/Vol] 0.5 mg/dL High NINF - 0.3 mg/dL [facility] Bilirubin.indirect [Mass/Vol] 0.5 mg/dL High <0.3 [facility] Comment on above: Performed By: #### NATHANIEL RAMÍREZ, HFP ####[facility] (DEFAULT)[address] [place] [address] Protein [Mass/Vol] 6.1 g/dL Low 6.4-8.3 [facility] Comment on above: Performed By: #### NATHANIEL RAMÍREZ, HFP ####[facility] (DEFAULT)[address] [place] [address] ITRACONAZOLE LEVELon 024 Hydroxyitraconazole 7.6 mcg/mL Normal [facility] Comment on above: Order Comment: Dilan gregory draw level at specified interval PRIOR to dose. Result Comment: ---- REFERENCE VALUE No therapeutic range established; activity and serumconcentration are similar to parent drug. ADDITIONAL INFORMATION This test was developed and its performance characteristicsdetermined by [facility] in a manner consistent with CLIArequirements. This test has not been cleared or approved bythe U.S. Food and Drug Administration.Test Performed by:[facility] [place] [id number] Director: Rosendo Bose M.D. Ph.D.; CLIA# [id number] Performed By: #### Y ITCON ####[facility] (DEFAULT)[address] [address] Itraconazole 6.0 mcg/mL Normal [facility] Comment on above: Order Comment: Pleas e draw level at specified interval PRIOR to dose. Result Comment: ---- REFERENCE VALUE-------------------------->0.5 (localized infection), >1.0 (systemic infection) Performed By: #### Y ITCON ####[facility] (DEFAULT)[address] [place] [address] MAGNESIUMon 01-20-2024 Interpretation and review of laboratory results Normal [facility] Magnesium [Mass/Vol] 1.6 mg/dL Normal 1.6-2.6 [facility] Comment on above: Performed By: #### M GO, CHM7, [facility] ####[facility] (DEFAULT)[address] [place] [address] No Panel Informationon 01-20 Interpretation and review of laboratory results Abnormal [facility] Interpretation and review of laboratory results Abnormal [facility] Oxyhemoglobin 69 % Low 94 - 98 % [facility] Ordering physician notified. Test performed at address of the patient encounter. [facility] PO[facility] CO-OXIMETRYon Hemoglobin (Bld) [Mass/Vol] 13.3 g/dL Low 13.4 - 16.8 g/dL [facility] Hemoglobin (Bld) [Mass/Vol] 12.8 g/dL Low 13.4 - 16.8 g/dL [facility] PT,INR,PTTon 01-20-2024 aPTT Coag (Bld) [Time] 30.6 s Normal 24.0-34.3 [facility] Comment on above: Performed By: #### P TPTT ####[facility] (DEFAULT)[address] [place] [address] aPTT Coag (PPP) [Time] 30.6 s [facility] INR Coag (Bld) [Relative time] 1.2 {INR} High 0.9 - 1.1 [facility] INR Coag (PPP) [Relative time] 1.2 {INR} High 0.9-1.1 [facility] Comment on above: Performed By: #### P TPTT ####[facility] (DEFAULT)[address] [place] [address] PT Coag (PPP) [Time] 15.5 s High 11.9-14.2 [facility] Comment on above: Performed By: #### P TPTT ####[facility] (DEFAULT)[address] [place] [address] TACROLIMUS LEVEL, TROUGH (NE E DRUG LEVEL)Ordered By: Yanira Marcum on 01-20-2024 Interpretation and review of laboratory results Normal [facility] Tacrolimus (Bld) [Mass/Vol] 7.7 ng/mL Bone Marrow Transplant: 4.0-12.0, Therapeutic: 5.0-15.0 [facility] Method performed is a chemiluminescent microparticle immunoasssay on the [employer] i2000. The range is based on experience at [facility] and users should be aware that target concentrations vary widely depending on concomitant therapy, time post-transplant, and desired degree of immunosuppression. [facility] TACROLIMUS LEVEL, TROUGH (NE E DRUG LEVEL)on 01-20-2024 Tacrolimus, Trough 7.7 ng/mL Normal Bone Susana ow Transplant: 4.0-12.0, Therapeutic: 5.0-15.0 [facility] Comment on above: Order Comment: Pleas e draw at specified interval PRIOR to dose. Do not hold dose to wait for level. Specimens batched twice per day, (M-F) and once per day weekendsMethod performed is a chemiluminescent microparticle immunoasssay on the [employer] i2000.The range is based on experience at [facility] and users should be aware that target concentrations vary widely depending on concomitant therapy, time post-transplant, and desired degree of immunosuppression. Performed By: #### T ACRO ####[facility] (DEFAULT)[address] [place] [address] CBC,PLATELETSon 01-19-2024 Erythrocyte distribution width (RBC) [Ratio] 13.9 % 10.9 - 14.3 % [facility] Hematocrit (Bld) [Volume fraction] 37.5 % Low 39.6-48.8 [facility] Comment on above: Performed By: #### H [facility] ####[facility] (DEFAULT)[address] [place] [address] Hemoglobin (Bld) [Mass/Vol] 12.1 g/dL Low 13.4-16.8 [facility] Comment on above: Performed By: #### H [facility] ####[facility] (DEFAULT)[address] [place] [address] Interpretation and review of laboratory results Abnormal [facility] MCH (RBC) [Entitic mass] 28.3 pg 26.1 - 33.3 pg [facility] MCHC (RBC) [Mass/Vol] 32.3 g/dL 31.9 - 36.5 g/dL [facility] MCV (RBC) [Entitic vol] 87.8 fL Normal 79.0-94.5 [facility] Comment on above: Performed By: #### H EMOGC ####[facility] (DEFAULT)[address] [facility] [place] [address] Mean Cell Hgb 28.3 pg Normal 26.1-33.3 [facility] Comment on above: Performed By: #### H EMOQUINTIN ####[facility] (DEFAULT)[address] [place] [address] Mean Cell Hgb Conc 32.3 g/dL Normal 31.9-36.5 [facility] Comment on above: Performed By: #### H EMOGC ####[facility] (DEFAULT)[address] [facility] [place] [address] Platelet mean volume (Bld) [Entitic vol] 10.4 fL Normal 8.7-12.3 [facility] Comment on above: Performed By: #### H EMOGC ####[facility] (DEFAULT)[address] [facility] [place] [address] Platelets (Bld) [#/Vol] 163 10*3/uL Normal 146-337 [facility] Comment on above: Performed By: #### H EMOQUINTIN ####[facility] (DEFAULT)[address] [place] [address] RBC (Bld) [#/Vol] 4.27 10*6/uL Low 4.38-5.83 [facility] Comment on above: Performed By: #### H EMOQUINTIN ####[facility] (DEFAULT)[address] [facility] [place] [address] RBC Distribution 13.9 % Normal 10.9-14.3 [facility] Comment on above: Performed By: #### H EMOGC ####[facility] (DEFAULT)[address] [place] [address] WBC (Bld) [#/Vol] 3.69 10*3/uL Low 3.73-10.10 [facility] Comment on above: Performed By: #### H EMOGC ####[facility] (DEFAULT)[address] [place] [address] CHEM 7 (LYTES,BUN,CREA,GLUC) on 01-19-2024 Anion gap [Moles/Vol] 14 mmol/L Normal 7-17 [facility] Comment on above: Performed By: #### TJ RAMÍREZ7 ####[facility] (DEFAULT)[address] [place] [address] Anion gap [Moles/Vol] 14 mmol/L 7 - 17 mmol/L [facility] Chloride [Moles/Vol] 106 mmol/L Normal 98-108 [facility] Comment on above: Performed By: #### TJ RAMÍREZ7 ####[facility] (DEFAULT)[address] [place] [address] Chloride [Moles/Vol] 106 mmol/L 98 - 10 8 mmol/L [facility] CO2 [Moles/Vol] 24 mmol/L Normal 21-31 [facility] Comment on above: Performed By: #### NATHANIEL RAMÍREZ ####[facility] (DEFAULT)[address] [place] [address] CO2 [Moles/Vol] 24 mmol/L 21 - 31 mmol/L [facility] Creatinine [Mass/Vol] 1.13 mg/dL Normal 0.70-1.30 [facility] Comment on above: Performed By: #### TJ RAMÍREZ7 ####[facility] (DEFAULT)[address] [place] [address] Creatinine [Mass/Vol] 1.13 mg/dL 0.70 - 1.30 mg/dL [facility] eGFR, CKD-EPI, Male 79 - PINF [facility] Comment on above: Reported eGFR is bas ed on the CKD-EPI 2020 equation using creatinine, age, and sex. GFR/1.73 sq M.predicted among non-blacks MDRD (S/P/Bld) [Vol rate/Area] 78 mL/min/{1.73_m2} Normal >=60 [facility] Comment on above: Result Comment: Repo rted eGFR is based on the CKD-EPI 2020 equation using creatinine, age, and sex. Performed By: #### TJ RAMÍREZ7 ####[facility] (DEFAULT)[address] [place] [address] Glucose [Mass/Vol] 86 mg/dL Normal 70-99 [facility] Comment on above: Performed By: #### TJ RAMÍREZ7 ####[facility] (DEFAULT)[address] [place] [address] Glucose [Mass/Vol] 86 mg/dL 70 - 99 mg/dL [facility] Osmolality [Osmolality] 293 mosm/kg Normal 278-305 [facility] Comment on above: Performed By: #### TJ RAMÍREZ7 ####[facility] (DEFAULT)[address] [place] [address] Osmolality Calc [Osmolality] 293 [facility] Potassium [Moles/Vol] 3.8 mmol/L Normal 3.5-5.0 [facility] Comment on above: Performed By: #### TJ RAMÍREZ7 ####[facility] (DEFAULT)[address] [place] [address] Potassium [Moles/Vol] 3.8 mmol/L 3.5 - 5.0 mmol/L [facility] Sodium [Moles/Vol] 140 mmol/L Normal 135-145 [facility] Comment on above: Performed By: #### TJ RAMÍREZ7 ####[facility] (DEFAULT)[address] [place] [address] Sodium [Moles/Vol] 140 mmol/L 135 - 145 mmol/L [facility] Urea nitrogen [Mass/Vol] 16 mg/dL Normal 7-25 [facility] Comment on above: Performed By: #### TJ RAMÍREZ7 ####[facility] (DEFAULT)[address] [place] [address] Urea nitrogen [Mass/Vol] 16 mg/dL 7 - 25 mg/dL [facility] Urea nitrogen/Creatinine [Mass ratio] 14 mg/mg Normal [facility] Comment on above: Performed By: #### M GO, CHM7 ####[facility] (DEFAULT)[address] [place] [address] Urea nitrogen/Creatinine [Mass ratio] 14 mg/mg [facility] EBV BY PCR, QUANTITATIVE,BLO ODon 01-19-2024 Ebv By Pcr, Quant, Blood <1000 Normal <1000 [facility] Comment on above: Order [...] by The [facility] at [facility]. It has not been cleared or approved by the FDA. The laboratory is regulated under CLIA as qualified to perform high-complexity testing. This test is used for clinical purposes. It should not be regarded as investigational or for research. Performed By: #### E BVPCR ####[facility] (DEFAULT)[address] [place] [id number] HISTOPLASMA AND BLASTOMYCES ANTIGEN, ENZYME IMMUNOASSAY, SERMon 01-19-2024 Histoplasma/Blastomy antonia Ag Result Not detected Not Detected [facility] Comment on above: No antigen from Hist oplasma or Blastomyces detected. False negative results may occur depending on extent of disease, and/or site of infection. Repeat testing on a new specimen if clinically indicated. Histoplasma/Blastomy antonia Ag Value Not detected ng/mL [facility] Comment on above: ADDITIONAL INFORMATION This test was developed and its performance characteristics determined by [facility] in a manner consistent with CLIA requirements. This test has not been cleared or approved by the U.S. Food and Drug Administration. Test Performed by: [facility] [address] [place] [address] Flight Communications Officer: Rosendo Bose M.D. Ph.D.; CLIA# [id number] [facility] MAGNESIUMon 01-19-2024 Interpretation and review of laboratory results Normal [facility] Magnesium [Mass/Vol] 1.8 mg/dL Normal 1.6-2.6 [facility] Comment on above: Performed By: #### M , M7 ####[facility] (DEFAULT)[address] [place] [address] Magnesium [Mass/Vol] 1.8 mg/dL 1.6 - 2 .6 mg/dL [facility] No Panel Informationon 01-19 [facility] TACROLIMUS LEVEL, TROUGH (NE E DRUG LEVEL)Ordered By: Raymundo Mehta on 01-19-2024 Interpretation and review of laboratory results Normal [facility] Tacrolimus (Bld) [Mass/Vol] 6.8 ng/mL Bone Marrow Transplant: 4.0-12.0, Therapeutic: 5.0-15.0 [facility] Method performed is a chemiluminescent microparticle immunoasssay on the [employer] i2000. The range is based on experience at [facility] and users should be aware that target concentrations vary widely depending on concomitant therapy, time post-transplant, and desired degree of immunosuppression. [facility] TACROLIMUS LEVEL, TROUGH (NE E DRUG LEVEL)on 01-19-2024 Tacrolimus, Trough 6.8 ng/mL Normal Bone Susana ow Transplant: 4.0-12.0, Therapeutic: 5.0-15.0 [facility] Comment on above: Order Comment: Pleas e draw at specified interval PRIOR to dose. Do not hold dose to wait for level. Specimens batched twice per day, (M-F) and once per day weekendsMethod performed is a chemiluminescent microparticle immunoasssay on the [employer] i2000.The range is based on experience at [facility] and users should be aware that target concentrations vary widely depending on concomitant therapy, time post-transplant, and desired degree of immunosuppression. Performed By: #### T ACRO ####[facility] (DEFAULT)[address] [place] [address] US AV fistulaon 01-19-2024 Radiology Study observation (narrative) [facility] US AV fistulaOrdered By: Diana Reyes on 01-19-2024 [facility] Work Phone: AFP TUMOR MARKEROrdered By: Francisca Alaniz on 01-18-2024 AFP.tumor marker [Mass/Vol] ng/mL NINF - 8.1 ng/mL [facility] Comment on above: This test was perfor med on the Magisto Immunoassay platform by [employer] which is a two-site sandwich chemiluminescent immunoassay. It is important to note that assays using different manufacturers and/or methods may not be comparable. Interpretation and review of laboratory results Normal [facility] CBC,PLATELETSon 01-18-2024 Erythrocyte distribution width (RBC) [Ratio] 13.9 % 10.9 - 14.3 % [facility] Hematocrit (Bld) [Volume fraction] 38.4 % Low 39.6-48.8 [facility] Comment on above: Performed By: #### H EMO ####[facility] (DEFAULT)[address] [place] [address] Hemoglobin (Bld) [Mass/Vol] 12.1 g/dL Low 13.4-16.8 [facility] Comment on above: Performed By: #### H EMOGC ####[facility] (DEFAULT)[address] [place] [address] MCH (RBC) [Entitic mass] 27.8 pg 26.1 - 33.3 pg [facility] MCHC (RBC) [Mass/Vol] 31.5 g/dL Low 31.9 - 36.5 g/dL [facility] MCV (RBC) [Entitic vol] 88.3 fL Normal 79.0-94.5 [facility] Comment on above: Performed By: #### H EMOGC ####[facility] (DEFAULT)[address] [facility] [place] [address] Mean Cell Hgb 27.8 pg Normal 26.1-33.3 [facility] Comment on above: Performed By: #### H EMOQUINTIN ####[facility] (DEFAULT)[address] [place] [address] Mean Cell Hgb Conc 31.5 g/dL Low 31.9-36.5 [facility] Comment on above: Performed By: #### H EMOGC ####[facility] (DEFAULT)[address] [facility] [place] [address] Platelet mean volume (Bld) [Entitic vol] 10.4 fL Normal 8.7-12.3 [facility] Comment on above: Performed By: #### H EMOGC ####[facility] (DEFAULT)[address] [facility] [place] [address] Platelets (Bld) [#/Vol] 183 10*3/uL Normal 146-337 [facility] Comment on above: Performed By: #### H EMOGC ####[facility] (DEFAULT)[address] [facility] [place] [address] RBC (Bld) [#/Vol] 4.35 10*6/uL Low 4.38-5.83 [facility] Comment on above: Performed By: #### H EMOGC ####[facility] (DEFAULT)[address] [facility] [place] [address] RBC Distribution 13.9 % Normal 10.9-14.3 [facility] Comment on above: Performed By: #### H EMOGC ####[facility] (DEFAULT)[address] [place] [address] WBC (Bld) [#/Vol] 3.66 10*3/uL Low 3.73-10.10 [facility] Comment on above: Performed By: #### H EMOQUINTIN ####[facility] (DEFAULT)[address] [place] [address] CHEM 7 (LYTES,BUN,CREA,GLUC) on 01-18-2024 Anion gap [Moles/Vol] 11 mmol/L Normal 7-17 [facility] Comment on above: Performed By: #### M GO, CHM7, HFP, TSHQR ####[facility] (DEFAULT)[address] [place] [address] Chloride [Moles/Vol] 108 mmol/L Normal 98-108 [facility] Comment on above: Performed By: #### M GO, CHM7, HFP, TSHQR ####[facility] (DEFAULT)[address] [place] [address] CO2 [Moles/Vol] 26 mmol/L Normal 21-31 [facility] Comment on above: Performed By: #### M GO, CHM7, HFP, TSHQR ####[facility] (DEFAULT)[address] [place] [address] Creatinine [Mass/Vol] 1.00 mg/dL Normal 0.70-1.30 [facility] Comment on above: Performed By: #### M GO, CHM7, HFP, TSHQR ####[facility] (DEFAULT)[address] [place] [address] eGFR, CKD-EPI, Male > Normal >=60 [facility] Comment on above: Result Comment: Repo rted eGFR is based on the CKD-EPI 2020 equation using creatinine, age, and sex. Performed By: #### M GO, CHM7, HFP, TSHQR ####[facility] (DEFAULT)[address] [place] [address] eGFR, CKD-EPI, Male - PINF [facility] Comment on above: Reported eGFR is bas ed on the CKD-EPI 2021 equation using creatinine, age, and sex. Glucose [Mass/Vol] 89 mg/dL Normal 70-99 [facility] Comment on above: Performed By: #### M GO, CHM7, HFP, TSHQR ####[facility] (DEFAULT)[address] [facility] [place] [address] Osmolality [Osmolality] 295 mosm/kg Normal 278-305 [facility] Comment on above: Performed By: #### M GO, CHM7, HFP, TSHQR ####[facility] (DEFAULT)[address] [facility] [place] [address] Osmolality Calc [Osmolality] 295 [facility] Potassium [Moles/Vol] 3.9 mmol/L Normal 3.5-5.0 [facility] Comment on above: Performed By: #### M GO, CHM7, HFP, TSHQR ####[facility] (DEFAULT)[address] [facility] [place] [address] Sodium [Moles/Vol] 141 mmol/L Normal 135-145 [facility] Comment on above: Performed By: #### M GO, CHM7, HFP, TSHQR ####[facility] (DEFAULT)[address] [place] [address] Urea nitrogen [Mass/Vol] 16 mg/dL Normal 7-25 [facility] Comment on above: Performed By: #### M GO, CHM7, HFP, TSHQR ####[facility] (DEFAULT)[address] [facility] [place] [address] Urea nitrogen/Creatinine [Mass ratio] 16 mg/mg Normal [facility] Comment on above: Performed By: #### M GO, CHM7, HFP, TSHQR ####[facility] (DEFAULT)[address] [facility] [place] [address] Cardiac echo study Procedure Ordered By: Gian Carlos on 01-18-2024 Ao ASC index 1.63 cm/m2 [facility] Work Phone: Ao peak meliton 1.46 m/s [facility] Work Phone: Ao SOV index 1.56 cm/m2 [facility] Work Phone: Ao STJ index 1.25 cm[facility]m2 [facility] Work Phone: [facility]o VTI 35.74 [facility] Work Phone: Ascending [facility] 3.39 [facility] Work Phone: AV LVOT peak gradient 4 mmHg [facility] Work Phone: [facility] gradient [facility] Work [facility]: AV peak gradient 9 mmHG [facility] Work Phone: AV valve area 3.09 cm2 [facility] Work Phone: AV Velocity Ratio 0.73 [facility] Work Phone: VEGA (continuity Vmax) 3.01 cm2 [facility] Work Phone: VEGA (continuity VTI) 3.09 cm2 [facility] Work Phone: VEGA index (continuity Vmax) 1.45 m/s [facility] Work Phone: VEGA index (continuity VTI) 1.49 cm2/m2 [facility] Work Phone: Avg e' pk meliton 0.07 m/s [facility] Work Phone: Avg E/e' ratio 19.45 [facility] Work Phone: Body surface area Derived from formula 2.08 m2 [facility] Work Phone: BP EF 62 % [facility] Work Phone: DI (Vmax) 0.73 [facility] Work Phone: DI (VTI) 0.74 m/2 [facility] Work Phone: E wave decelartion time 180.38 msec [facility] Work Phone: e' lateral pk meliton 0.0789 m/s [facility] Work [facility]: e' lateral pk meliton 0.08 m/s [facility] Work Phone: e' septal pk meliton 0.0653 m/s [facility] Work Phone: e' septal pk meliton 0.07 m/s [facility] Work Phone: E/A ratio 2.67 [facility] Work Phone: E/e' lateral [facility].62 [facility] Work Phone: E/e' septal ratio 21.29 [facility] Work Phone: EF SP 2CH 66 [facility] Work Phone: EF SP 4CH 58 [facility] Work Phone: FS 28 % 28 - 44 % [facility] Work Phone: IVC ostium 2.30 cm [facility] Work Phone: IVS 1.11 cm [facility] Work Phone: LA AREA 2CH 24.36 cm2 [facility] Work Phone: LA area 4CH 20.36 cm2 [facility] Work Phone: LA ESV BP (MOD) 64 mL [facility] Work Phone: LA ESV BP (MOD) index 31 mL/m2 [facility] Work Phone: [phone] LA ESV SP 2CH (MOD) 76 mL [facility] Work Phone: [phone] LA ESV SP 4CH (MOD) 53 mL [facility] Work Phone: [phone] LV EDV BP 180 mL [facility] Work Phone: LV EDV SP 2CH 190 mL [facility] Work Phone: [phone] LV EDV SP 4CH 166 mL [facility] Work Phone: [phone] LV ESV BP 69 mL [facility] Work Phone: [phone] LV ESV SP 2CH 65 mL [facility] Work Phone: [phone] LV ESV SP 4CH 70 mL [facility] Work Phone: [phone] LV mass 254.73 g [facility] Work Phone: LV Mass Index 122.5 g/m2 [facility] Work Phone: [phone] LV RWT 0.42 [facility] Work Phone: LV stroke volume BP (ml) 111 mL [facility] Work Phone: LV stroke volume index BP 53.37 mL/m2 [facility] Work Phone: [phone] LVIDD 5.53 cm [facility] Work Phone: LVIDS 3.97 cm [facility] Work Phone: LVOT area 4.15 cm2 [facility] Work Phone: LVOT diameter 2.30 cm [facility] Work Phone: LVOT peak meliton 1.06 m/s [facility] Work Phone: LVOT peak VTI 26.61 cm [facility] Work Phone: LVOT stroke volume 111 cm3 [facility] Work Phone: LVOT stroke volume index 53.13 ml/m2 [facility] Work Phone: Mr max meliton 4.21 m/s [facility] Work Phone: MR VTI 134.50 cm [facility] Work Phone: MV mean gradient 3 mmHg [facility] Work Phone: MV peak gradient 11 mmHg [facility] Work Phone: MV pk A meliton 0.52 m/s [facility] Work Phone: MV pk E meliton 1.39 m/s [facility] Work Phone: MV stenosis pressure 1/2 time 58.56 ms [facility] Work Phone: MV valve area by continuity eq 2.93 cm2 [facility] Work Phone: MV valve area p 1/2 method 3.76 cm2 [facility] Work Phone: MV VTI 37.70 cm [facility] Work Phone: MVA (continuity VTI) 2.92 cm [facility] Work Phone: [facility] AV VTI RATIO PRE STRESS 0.74 [facility] Work Phone: [facility] ECHO LV BIPLANE SYSTOLIC VOLUME INDEX 33.17 mL/m2 [facility] Work Phone: [facility] ECHO LV BP DIASTOLIC VOLUME INDEX 86.54 mL/m2 [facility] Work Phone: [facility] ECHO MR PEAK GRADIENT 70.94 mmHg [facility] Work Phone: PW 1.16 cm [facility] Work Phone: RA area 4CH (MOD) 14.50 cm2 [facility] Work Phone: RA vol index 4CH (MOD) 18.27 mL/m2 [facility] Work Phone: Right atrium volume 4 chamber method of disks 38 mL [facility] Work Phone: RV Area diastolic 33.20 cm2 [facility] Work Phone: RV Area systolic 21.30 cm2 [facility] Work Phone: RV basal diam 4.52 cm [facility] Work Phone: RV Fractional area change 35.8 % [facility] Work Phone: RV long diam 8.96 cm [facility] Work Phone: RV mid diam 3.70 cm [facility] Work Phone: RV S' 22.01 cm/s [facility] Work Phone: RVOT peak gradient 4 mmHg [facility] Work Phone: RVOT peak meliton 0.96 m/s [facility] Work Phone: RVOT peak VTI 20.86 cm [facility] Work Phone: Sinus 3.24 cm [facility] Work Phone: STJ 2.61 cm [facility] Work Phone: Stroke Volume 111 cm/mL [facility] Work Phone: Stroke volume index 53 [facility] Work Phone: TAPSE 2.19 cm [facility] Work Phone: [facility] Work Phone: Cardiac echo study Procedure on 01-18-2024 Radiology Study observation (narrative) [facility] Left Ventricle: John dandy size is normal. [...] echocardiography study was performed. Imaging system used: [employer]. Indications Indications for study: shortness of breath. [facility] HEPATIC FUNCTION PANELon Albumin [Mass/Vol] 3.5 g/dL Normal 3.5-5.0 [facility] Comment on above: Performed By: #### M MERLE, HELENM7, HFP, TSHQR ####[facility] (DEFAULT)[address] [place] [address] ALP [Catalytic activity/Vol] 70 U/L Normal 32-126 [facility] Comment on above: Performed By: #### M GO, CHM7, HFP, TSHQR ####[facility] (DEFAULT)[address] [place] [address] ALT [Catalytic activity/Vol] 8 U/L Low 10-52 [facility] Comment on above: Performed By: #### M GO, CHM7, HFP, TSHQR ####[facility] (DEFAULT)[address] [place] [address] AST [Catalytic activity/Vol] 20 U/L Normal 10-39 [facility] Comment on above: Performed By: #### M GO, CHM7, HFP, TSHQR ####[facility] (DEFAULT)[address] [place] [address] Bilirubin [Mass/Vol] 1.7 mg/dL High <1.5 [facility] Comment on above: Performed By: #### M GO, CHM7, HFP, TSHQR ####[facility] (DEFAULT)[address] [place] [address] Bilirubin.direct [Mass/Vol] 0.4 mg/dL High NINF - 0.3 mg/dL [facility] Bilirubin.indirect [Mass/Vol] 0.4 mg/dL High <0.3 [facility] Comment on above: Performed By: #### M GO, CHM7, HFP, TSHQR ####[facility] (DEFAULT)[address] [place] [address] Protein [Mass/Vol] 6.0 g/dL Low 6.4-8.3 [facility] Comment on above: Performed By: #### M GO, CHM7, HFP, TSHQR ####[facility] (DEFAULT)[address] [place] [address] MAGNESIUMon 01-18-2024 Magnesium [Mass/Vol] 1.5 mg/dL Low 1.6-2.6 [facility] Comment on above: Performed By: #### M NATHANIEL BLOOM, HFP, TSHQR ####[facility] (DEFAULT)[address] [place] [address] No Panel Informationon 01-18 Interpretation and review of laboratory results Abnormal [facility] PT,INR,PTTon 01-18-2024 aPTT Coag (Bld) [Time] 30.0 s Normal 24.0-34.3 [facility] Comment on above: Performed By: #### P TPTT ####[facility] (DEFAULT)[address] [place] [address] aPTT Coag (PPP) [Time] 30.0 s [facility] INR Coag (Bld) [Relative time] 1.1 {INR} 0.9 - 1.1 [facility] INR Coag (PPP) [Relative time] 1.1 {INR} Normal 0.9-1.1 [facility] Comment on above: Performed By: #### P TPTT ####[facility] (DEFAULT)[address] [place] [address] PT Coag (PPP) [Time] 14.5 s High 11.9-14.2 [facility] Comment on above: Performed By: #### P TPTT ####[facility] (DEFAULT)[address] [place] [address] PT Coag (PPP) [Time] 14.5 s High [facility] TSH W/FT4 REFLEXon Interpretation and review of laboratory results Normal [facility] TSH 2.660 uIU/mL Normal 0.550-4.780 [facility] Comment on above: Performed By: #### M HELEN BLOOMM7, HFP, TSHQR ####[facility] (DEFAULT)[address] [place] [address] TSH Qn 2.660 m[IU]/L [facility] AFP TUMOR MARKERon AFP Tumor Marker <2.2 Normal <8.1 [facility] Comment on above: Result Comment: This test was performed on the Magisto Immunoassay platform by [employer] which is a two-site sandwich chemiluminescent immunoassay. It is important to note that assays using different manufacturers and/or methods may not be comparable. Performed By: #### A FPTMR ####[facility] (DEFAULT)[address] [address] DARYL AURIS SCREEN BY PCRO rdered By: Mynor Alejandro on 01-17-2024 Daryl auris Screen by PCR Not detected Not Detected [facility] Interpretation and review of laboratory results Normal [facility] This test was perfor med using a real-time PCR assay. This test was developed, and its performance characteristics determined by [facility]. It has not been cleared or approved by the FDA. The laboratory is regulated under CLIA as qualified to perform high-complexity testing. This test is used for clinical purposes. It should not be regarded as investigational or for research. [facility] CBC,PLATELETSon 01-17-2024 Erythrocyte distribution width (RBC) [Ratio] 14.0 % 10.9 - 14.3 % [facility] Hematocrit (Bld) [Volume fraction] 37.2 % Low 39.6-48.8 [facility] Comment on above: Performed By: #### H [facility] ####[facility] (DEFAULT)[address] [place] [address] Hematocrit (Bld) [Volume fraction] 37.2 % Low 39.6 - 48.8 % [facility] Hemoglobin (Bld) [Mass/Vol] 12.0 g/dL Low 13.4-16.8 [facility] Comment on above: Performed By: #### H EMO ####[facility] (DEFAULT)[address] [place] [address] Hemoglobin (Bld) [Mass/Vol] 12.0 g/dL Low 13.4 - 16.8 g/dL [facility] MCH (RBC) [Entitic mass] 27.9 pg 26.1 - 33.3 pg [facility] MCHC (RBC) [Mass/Vol] 32.3 g/dL 31.9 - 36.5 g/dL [facility] MCV (RBC) [Entitic vol] 86.5 fL Normal 79.0-94.5 [facility] Comment on above: Performed By: #### H EMO ####[facility] (DEFAULT)[address] [place] [address] MCV (RBC) [Entitic vol] 86.5 fL 79.0 - 94.5 fL [facility] Mean Cell Hgb 27.9 pg Normal 26.1-33.3 [facility] Comment on above: Performed By: #### H EMO ####[facility] (DEFAULT)[address] [place] [address] Mean Cell Hgb Conc 32.3 g/dL Normal 31.9-36.5 [facility] Comment on above: Performed By: #### H EMO ####[facility] (DEFAULT)[address] [place] [address] Platelet mean volume (Bld) [Entitic vol] 10.5 fL Normal 8.7-12.3 [facility] Comment on above: Performed By: #### H EMOGC ####[facility] (DEFAULT)[address] [place] [address] Platelet mean volume (Bld) [Entitic vol] 10.5 fL 8.7 - 12.3 fL [facility] Platelets (Bld) [#/Vol] 159 10*3/uL Normal 146-337 [facility] Comment on above: Performed By: #### H [facility] ####[facility] (DEFAULT)[address] [place] [address] Platelets (Bld) [#/Vol] 159 10*3/uL 146 - 337 K/uL [facility] RBC (Bld) [#/Vol] 4.30 10*6/uL Low 4.38-5.83 [facility] Comment on above: Performed By: #### H [facility] ####[facility] (DEFAULT)[address] [place] [address] RBC (Bld) [#/Vol] 4.30 10*6/uL Low [facility] RBC Distribution 14.0 % Normal 10.9-14.3 [facility] Comment on above: Performed By: #### H [facility] ####[facility] (DEFAULT)[address] [place] [address] WBC (Bld) [#/Vol] 3.69 10*3/uL Low 3.73-10.10 [facility] Comment on above: Performed By: #### H [facility] ####[facility] (DEFAULT)[address] [place] [address] WBC (Bld) [#/Vol] 3.69 10*3/uL Low 3.73 - 10. 10 K/uL [facility] CHEM 7 (LYTES,BUN,CREA,GLUC) on 01-17-2024 Anion gap [Moles/Vol] 13 mmol/L Normal 7-17 [facility] Comment on above: Performed By: #### M NATHANIEL BLOOM, HFP ####[facility] (DEFAULT)[address] [place] [address] Anion gap [Moles/Vol] 13 mmol/L 7 - 17 mmol/L [facility] Chloride [Moles/Vol] 109 mmol/L High 98-108 [facility] Comment on above: Performed By: #### NATHANIEL RAMÍREZ, HFP ####[facility] (DEFAULT)[address] [place] [address] Chloride [Moles/Vol] 109 mmol/L High 98 - 10 8 mmol/L [facility] CO2 [Moles/Vol] 21 mmol/L Normal 21-31 [facility] Comment on above: Performed By: #### M NATHANIEL BLOOM, HFP ####[facility] (DEFAULT)[address] [place] [address] CO2 [Moles/Vol] 21 mmol/L 21 - 31 mmol/L [facility] Creatinine [Mass/Vol] 1.04 mg/dL Normal 0.70-1.30 [facility] Comment on above: Performed By: #### NATHANIEL RAMÍREZ, HFP ####[facility] (DEFAULT)[address] [place] [address] Creatinine [Mass/Vol] 1.04 mg/dL 0.70 - 1.30 mg/dL [facility] eGFR, CKD-EPI, Male 86 - PINF [facility] Comment on above: Reported eGFR is bas ed on the CKD-EPI 2021 equation using creatinine, age, and sex. GFR/1.73 sq M.predicted among non-blacks MDRD (S/P/Bld) [Vol rate/Area] 86 mL/min/{1.73_m2} Normal >=60 [facility] Comment on above: Result Comment: Repo rted eGFR is based on the CKD-EPI 2021 equation using creatinine, age, and sex. Performed By: #### M NATHANIEL BLOOM, HFP ####[facility] (DEFAULT)[address] [place] [address] Glucose [Mass/Vol] 82 mg/dL Normal 70-99 [facility] Comment on above: Performed By: #### NATHANIEL RAMÍREZ, HFP ####[facility] (DEFAULT)[address] [place] [address] Glucose [Mass/Vol] 82 mg/dL 70 - 99 mg/dL [facility] Osmolality [Osmolality] 292 mosm/kg Normal 278-305 [facility] Comment on above: Performed By: #### NATHANIEL RAMÍREZ, HFP ####[facility] (DEFAULT)[address] [facility] [place] [address] Osmolality Calc [Osmolality] 292 [facility] Potassium [Moles/Vol] 4.4 mmol/L Normal 3.5-5.0 [facility] Comment on above: Performed By: #### NATHANIEL RAMÍREZ, HFP ####[facility] (DEFAULT)[address] [place] [address] Potassium [Moles/Vol] 4.4 mmol/L 3.5 - 5.0 mmol/L [facility] Sodium [Moles/Vol] 139 mmol/L Normal 135-145 [facility] Comment on above: Performed By: #### NATHANIEL RAMÍREZ, HFP ####[facility] (DEFAULT)[address] [place] [address] Sodium [Moles/Vol] 139 mmol/L 135 - 145 mmol/L [facility] Urea nitrogen [Mass/Vol] 17 mg/dL Normal 7-25 [facility] Comment on above: Performed By: #### NATHANIEL RAMÍREZ, HFP ####[facility] (DEFAULT)[address] [place] [address] Urea nitrogen [Mass/Vol] 17 mg/dL 7 - 25 mg/dL [facility] Urea nitrogen/Creatinine [Mass ratio] 16 mg/mg Normal [facility] Comment on above: Performed By: #### NATHANIEL RAMÍREZ, HFP ####[facility] (DEFAULT)[address] [facility] [place] [address] Urea nitrogen/Creatinine [Mass ratio] 16 mg[facility]BD[facility]EN/PELVIS WITHOUT CO NTRASTon 01-17-2024 CT ABDOMEN/PELVIS WITHOUT CONTRAST Normal [facility] CT Abdomen and Pelvis WO con traston 01-17-2024 Radiology Study observation (narrative) [facility] IMPRESSION: 1. Since 08/31/2023, resolution of previously [...] unremarkable. Kidneys: Severe atrophy of the bilateral [place] kidney is without hydronephrosis. Right lower quadrant [...] unremarkable. Kidneys: Severe atrophy of the bilateral [place] kidney is without hydronephrosis. Right lower quadrant [...] the middle lobe. Trace left pleural effusion. [facility] HEPATIC FUNCTION PANELon Albumin [Mass/Vol] 3.5 g/dL Normal 3.5-5.0 [facility] Comment on above: Performed By: #### M NATHANIEL BLOOM, HFP ####[facility] (DEFAULT)[address] [place] [address] Albumin [Mass/Vol] 3.5 g/dL 3.5 - 5.0 g/dL [facility] ALP [Catalytic activity/Vol] 73 U/L Normal 32-126 [facility] Comment on above: Performed By: #### M NATHANIEL BLOOM, HFP ####[facility] (DEFAULT)[address] [place] [address] ALP [Catalytic activity/Vol] 73 U/L 32 - 126 U/L [facility] ALT [Catalytic activity/Vol] 7 U/L Low 10-52 [facility] Comment on above: Performed By: #### NATHANIEL RAMÍREZ, HFP ####[facility] (DEFAULT)[address] [place] [address] ALT [Catalytic activity/Vol] 7 U/L Low 10 - 52 U[facility] AST [Catalytic activity/Vol] 25 U/L Normal 10-39 [facility] Comment on above: Performed By: #### NATHANIEL RAMÍREZ, HFP ####[facility] (DEFAULT)[address] [place] [address] AST [Catalytic activity/Vol] 25 U/L 10 - 39 U/L [facility] Bilirubin [Mass/Vol] 1.8 mg/dL High <1.5 [facility] Comment on above: Performed By: #### NATHANIEL RAMÍREZ, HFP ####[facility] (DEFAULT)[address] [place] [address] Bilirubin [Mass/Vol] 1.8 mg/dL High NINF - 1.5 mg/dL [facility] Bilirubin.direct [Mass/Vol] 0.3 mg/dL High NINF - 0.3 mg/dL [facility] Bilirubin.indirect [Mass/Vol] 0.3 mg/dL High <0.3 [facility] Comment on above: Performed By: #### NATHANIEL RAMÍREZ, HFP ####[facility] (DEFAULT)[address] [place] [address] Protein [Mass/Vol] 6.0 g/dL Low 6.4-8.3 [facility] Comment on above: Performed By: #### NATHANIEL RAMÍREZ, HFP ####[facility] (DEFAULT)[address] [place] [address] Protein [Mass/Vol] 6.0 g/dL Low 6.4 - 8.3 g/dL [facility] HISTOPLASMA AND BLASTOMYCES ANTIGEN, ENZYME IMMUNOASSAY, SERMon 01-17-2024 Histoplasma/Blastomy antonia Ag Result Not detected Normal Not Detected [facility] Comment on above: Result Comment: No a ntigen from Histoplasma or Blastomyces detected. Falsenegative results may occur depending on extent of disease,and/or site of infection. Repeat testing on a new specimenif clinically indicated. Performed By: #### H IBAG ####[facility] (DEFAULT)[address] [place] [address] Histoplasma/Blastomy antonia Ag Value Not detected Normal [facility] Comment on above: Result Comment: ---- ADDITIONAL INFORMATION This test was developed and its performance characteristicsdetermined by [facility] in a manner consistent with CLIArequirements. This test has not been cleared or approved bythe U.S. Food and Drug Administration.Test Performed by:[address] [address] Director: Rosendo Bose M.D. Ph.D.; CLIA# [id number] Performed By: #### H IBAG ####[facility] (DEFAULT)[address] [place] [address] MAGNESIUMon 01-17-2024 Interpretation and review of laboratory results Normal [facility] Magnesium [Mass/Vol] 1.7 mg/dL Normal 1.6-2.6 [facility] Comment on above: Performed By: #### M MERLE, CHM7, [facility] ####[facility] (DEFAULT)[address] [place] [address] Magnesium [Mass/Vol] 1.7 mg/dL 1.6 - 2 .6 mg/dL [facility] No Panel Informationon 01-17 Interpretation and review of laboratory results Abnormal [facility] PT,INR,PTTon 01-17-2024 aPTT Coag (Bld) [Time] 29.9 s Normal 24.0-34.3 [facility] Comment on above: Performed By: #### P TPTT ####[facility] (DEFAULT)[address] [place] [address] aPTT Coag (PPP) [Time] 29.9 s [facility] INR Coag (Bld) [Relative time] 1.1 {INR} 0.9 - 1.1 [facility] INR Coag (PPP) [Relative time] 1.1 {INR} Normal 0.9-1.1 [facility] Comment on above: Performed By: #### P TPTT ####[facility] (DEFAULT)[address] [place] [address] PT Coag (PPP) [Time] 14.5 s High 11.9-14.2 [facility] Comment on above: Performed By: #### P TPTT ####[facility] (DEFAULT)[address] [place] [address] PT Coag (PPP) [Time] 14.5 s High [facility] B-TYPE NATRIURETIC PEPTIDE ( BRAIN)on 01-16-2024 Interpretation and review of laboratory results Abnormal [facility] Natriuretic peptide B (Bld) [Mass/Vol] 212 pg/mL High 0-100 [facility] Comment on above: Performed By: #### B [address] [employer] ####[facility] (DEFAULT)[address] [place] [address] Natriuretic peptide B (Bld) [Mass/Vol] 212 pg/mL High 0 - 100 pg/mL [facility] CALCIUMon 01-16-2024 Calcium [Mass/Vol] 8.5 mg/dL Low 8.6-10.5 [facility] Comment on above: Performed By: #### C A, MGO, CHM7, HFP, IPB ####[facility] (DEFAULT)[address] [place] [address] DARYL AURIS SCREEN BY PCRo n 01-16-2024 Daryl auris Screen by PCR Not detected Normal Not Detected [facility] Comment on above: Order Comment: This test was performed using a real-time PCR assay. This test was developed, and its performance characteristics determined by [facility]. It has not been cleared or approved by the FDA. The laboratory is regulated under CLIA as qualified to perform high-complexity testing. This test is used for clinical purposes. It should not be regarded as investigational or for research. Performed By: #### C ANDIDA AURIS SCREEN BY PCR ####[facility] (DEFAULT)[address] [place] [address] CBC AND ELECTRONIC DIFFon Abs Baso Auto < Normal 0.00-0.09 [facility] Comment on above: Performed By: #### L [id number] ####[facility] (DEFAULT)[address] [place] [address] Basophils (Bld) [#/Vol] K/uL 0.00 - 0.09 K/uL [facility] Basophils/100 WBC (Bld) 0.6 % Normal [facility] Comment on above: Performed By: #### L AB980 ####[facility] (DEFAULT)[address] [place] [address] DIFF STATUS Electronic Differential Normal [facility] Comment on above: Performed By: #### L AB980 ####[facility] (DEFAULT)[address] [place] [address] Differential cell count method Nom (Bld) Electronic Differential [facility] Eosinophils (Bld) [#/Vol] 0.09 10*3/uL Normal 0.00-0.48 [facility] Comment on above: Performed By: #### L AB980 ####[facility] (DEFAULT)[address] [place] [address] Eosinophils/100 WBC (Bld) 2.5 % Normal [facility] Comment on above: Performed By: #### L AB980 ####[facility] (DEFAULT)[address] [place] [address] Erythrocyte distribution width (RBC) [Ratio] 14.0 % 10.9 - 14.3 % [facility] Hematocrit (Bld) [Volume fraction] 37.4 % Low 39.6-48.8 [facility] Comment on above: Performed By: #### L AB980 ####[facility] (DEFAULT)[address] [place] [address] Hemoglobin (Bld) [Mass/Vol] 12.1 g/dL Low 13.4-16.8 [facility] Comment on above: Performed By: #### L AB980 ####[facility] (DEFAULT)[address] [place] [address] Immature Grans % 0.3 % Normal [facility] Comment on above: Performed By: #### L AB980 ####[facility] (DEFAULT)[address] [place] [address] Immature Grans Absolute < Normal <=0.07 [facility] Comment on above: Performed By: #### L AB980 ####[facility] (DEFAULT)[address] [place] [address] Immature granulocytes (Bld) [#/Vol] K/uL NINF - 0.07 K/uL [facility] Immature granulocytes/100 WBC (Bld) 0.3 % [facility] Interpretation and review of laboratory results Abnormal [facility] Lymphocytes (Bld) [#/Vol] 1.16 10*3/uL Normal 0.83-3.57 [facility] Comment on above: Performed By: #### L AB980 ####[facility] (DEFAULT)[address] [place] [address] Lymphocytes/100 WBC (Bld) 32.0 % Normal [facility] Comment on above: Performed By: #### L AB980 ####[facility] (DEFAULT)[address] [place] [address] MCH (RBC) [Entitic mass] 28.4 pg 26.1 - 33.3 pg [facility] MCHC (RBC) [Mass/Vol] 32.4 g/dL 31.9 - 36.5 g/dL [facility] MCV (RBC) [Entitic vol] 87.8 fL Normal 79.0-94.5 [facility] Comment on above: Performed By: #### L AB980 ####[facility] (DEFAULT)[address] [place] [address] Mean Cell Hgb 28.4 pg Normal 26.1-33.3 [facility] Comment on above: Performed By: #### L AB980 ####[facility] (DEFAULT)[address] [place] [address] Mean Cell Hgb Conc 32.4 g/dL Normal 31.9-36.5 [facility] Comment on above: Performed By: #### L AB980 ####[facility] (DEFAULT)[address] [place] [address] Monocytes (Bld) [#/Vol] 0.43 10*3/uL Normal 0.24-0.93 [facility] Comment on above: Performed By: #### L AB980 ####[facility] (DEFAULT)[address] [place] [address] Monocytes/100 WBC (Bld) 11.9 % Normal [facility] Comment on above: Performed By: #### L AB980 ####[facility] (DEFAULT)[address] [place] [address] Neutrophils (Bld) [#/Vol] 1.91 10*3/uL 1.57 - 6.19 K/uL [facility] Nucleated RBC 0.0 /100 WBC Normal <=0.2 [facility] Comment on above: Performed By: #### L [id number] ####[facility] (DEFAULT)[address] [place] [address] Nucleated RBC/100 WBC (Bld) [Ratio] 0.0 % NINF [facility] Platelet mean volume (Bld) [Entitic vol] 10.1 fL Normal 8.7-12.3 [facility] Comment on above: Performed By: #### L [id number] ####[facility] (DEFAULT)[address] [facility] [place] [address] Platelets (Bld) [#/Vol] 155 10*3/uL Normal 146-337 [facility] Comment on above: Performed By: #### L AB980 ####[facility] (DEFAULT)[address] [place] [address] RBC (Bld) [#/Vol] 4.26 10*6/uL Low 4.38-5.83 [facility] Comment on above: Performed By: #### L AB980 ####[facility] (DEFAULT)[address] [place] [address] RBC Distribution 14.0 % Normal 10.9-14.3 [facility] Comment on above: Performed By: #### L AB980 ####[facility] (DEFAULT)[address] [place] [address] Segmented neutrophils/100 WBC (Bld) 52.7 % [facility] Segs + Bands Auto 52.7 % Normal [facility] Comment on above: Performed By: #### L [id number] ####[facility] (DEFAULT)[address] [place] [address] Segs + Bands,Absolute Auto 1.91 K/uL Normal 1.57-6.19 [facility] Comment on above: Performed By: #### L [id number] ####[facility] (DEFAULT)[address] [place] [address] WBC (Bld) [#/Vol] 3.62 10*3/uL Low 3.73-10.10 [facility] Comment on above: Performed By: #### L [id number] ####[facility] (DEFAULT)[address] [place] [address] [facility] CHEM 7 (LYTES,BUN,CREA,GLUC) on 01-16-2024 Anion gap [Moles/Vol] 11 mmol/L Normal 7-17 [facility] Comment on above: Performed By: #### C A, MGO, CHM7, HFP, IPB ####[facility] (DEFAULT)[address] [place] [address] Chloride [Moles/Vol] 108 mmol/L Normal 98-108 [facility] Comment on above: Performed By: #### C A, MGO, CHM7, HFP, IPB ####[facility] (DEFAULT)[address] [place] [address] CO2 [Moles/Vol] 24 mmol/L Normal 21-31 [facility] Comment on above: Performed By: #### C A, MGO, CHM7, HFP, IPB ####[facility] (DEFAULT)[address] [place] [address] Creatinine [Mass/Vol] 1.04 mg/dL Normal 0.70-1.30 [facility] Comment on above: Performed By: #### C A, MGO, CHM7, HFP, IPB ####[facility] (DEFAULT)[address] [place] [address], [place] [address] eGFR, CKD-EPI, Male 86 - PINF [facility] Comment on above: Reported eGFR is bas ed on the CKD-EPI 2021 equation using creatinine, age, and sex. GFR/1.73 sq M.predicted among non-blacks MDRD (S/P/Bld) [Vol rate/Area] 86 mL/min/{1.73_m2} Normal >=60 [facility] Comment on above: Result Comment: Repo rted eGFR is based on the CKD-EPI 1 equation using creatinine, age, and sex. Performed By: #### C A, MGO, CHM7, HFP, IPB ####[facility] (DEFAULT)[address] [place] [address] Glucose [Mass/Vol] 95 mg/dL Normal 70-99 [facility] Comment on above: Performed By: #### C A, MGO, CHM7, HFP, IPB ####[facility] (DEFAULT)[address] [place] [address] Osmolality [Osmolality] 293 mosm/kg Normal 278-305 [facility] Comment on above: Performed By: #### C A, MGO, CHM7, HFP, IPB ####[facility] (DEFAULT)[address] [facility] [place] [address] Osmolality Calc [Osmolality] 293 [facility] Potassium [Moles/Vol] 4.0 mmol/L Normal 3.5-5.0 [facility] Comment on above: Performed By: #### C A, MGO, CHM7, HFP, IPB ####[facility] (DEFAULT)[address] [place] [address] Sodium [Moles/Vol] 139 mmol/L Normal 135-145 [facility] Comment on above: Performed By: #### C A, MGO, CHM7, HFP, IPB ####[facility] (DEFAULT)[address] [facility] [place] [address] Urea nitrogen [Mass/Vol] 19 mg/dL Normal 7-25 [facility] Comment on above: Performed By: #### C A, MGO, CHM7, HFP, IPB ####[facility] (DEFAULT)[address] [place] [address] Urea nitrogen/Creatinine [Mass ratio] 18 mg/mg Normal [facility] Comment on above: Performed By: #### C A, MGO, CHM7, HFP, IPB ####[facility] (DEFAULT)[address] [place] [address] D-DIMER,QUANTITATIVEon 01-16 D-Dimer, High Sensitivity 0.67 mcg/mL FEU High <0.50 [facility] Comment on above: Result Comment: The D-Dimer assay is intended for use in conjuction with a clinical pretest probability (PTP) assessment model to exclude pulmonary embolism (PE) and as an aid in the diagnosis of Deep Vein Thrombosis (DVT) in outpatients suspected of PE or DVT. For the assay in use at [facility] ([facility]), a cutoff of <0.50 mcg/mL has a Negative Predictive Value of 99.7% for exclusion of DVT in low and moderate PTP patients. Performed By: #### P TPTT, HSDDI ####[facility] (DEFAULT)[address] [place] [id number] D-DIMER,QUANTITATIVEOrdered By: Shaji Kelly on 01-16-2024 Fibrin D-dimer FEU (PPP) [Mass/Vol] 0.67 High NINF [facility] Comment on above: The D-Dimer assay is intended for use in conjuction with a clinical pretest probability (PTP) assessment model to exclude pulmonary embolism (PE) and as an aid in the diagnosis of Deep Vein Thrombosis (DVT) in outpatients suspected of PE or DVT. For the assay in use at [facility] ([facility]), a cutoff of <0.50 mcg/mL has a Negative Predictive Value of 99.7% for exclusion of DVT in low and moderate PTP patients. HEPATIC FUNCTION PANELon Albumin [Mass/Vol] 3.7 g/dL Normal 3.5-5.0 [facility] Comment on above: Performed By: #### C A, MGO, CHM7, HFP, IPB ####[facility] (DEFAULT)[address] [place] [address] ALP [Catalytic activity/Vol] 70 U/L Normal 32-126 [facility] Comment on above: Performed By: #### C A, MGO, CHM7, HFP, IPB ####[facility] (DEFAULT)[address] [place] [address] ALT [Catalytic activity/Vol] 8 U/L Low 10-52 [facility] Comment on above: Performed By: #### C Tray, MGO, CHM7, HFP, IPB ####[facility] (DEFAULT)[address] [place] [address] AST [Catalytic activity/Vol] 21 U/L Normal 10-39 [facility] Comment on above: Performed By: #### Chinedu Feliz, MGO, CHM7, HFP, IPB ####[facility] (DEFAULT)[address] [facility] [place] [address] Bilirubin [Mass/Vol] 1.9 mg/dL High <1.5 [facility] Comment on above: Performed By: #### Chinedu Feliz, MGO, CHM7, HFP, IPB ####[facility] (DEFAULT)[address] [facility] [place] [address] Bilirubin.direct [Mass/Vol] 0.4 mg/dL High NINF - 0.3 mg/dL [facility] Bilirubin.indirect [Mass/Vol] 0.4 mg/dL High <0.3 [facility] Comment on above: Performed By: #### C Tray, MGO, CHM7, HFP, IPB ####[facility] (DEFAULT)[address] [place] [address] Protein [Mass/Vol] 6.1 g/dL Low 6.4-8.3 [facility] Comment on above: Performed By: #### C Tray, MGO, CHM7, HFP, IPB ####[facility] (DEFAULT)[address] [facility] [place] [address] MAGNESIUMon 01-16-2024 Magnesium [Mass/Vol] 1.7 mg/dL Normal 1.6-2.6 [facility] Comment on above: Performed By: #### C Tray, MGO, CHM7, HFP, IPB ####[facility] (DEFAULT)[address] [facility] [place] [address] No Panel Informationon 01-16 Interpretation and review of laboratory results Normal [facility] No Panel InformationOrdered By: Shaji Kelly on 01-16-2024 Interpretation and review of laboratory results Abnormal [facility] PHOSPHATE, INORGANICon 01-16 Phosphate [Mass/Vol] 4.1 mg/dL 2.2 - 4 .6 mg/dL [facility] Phosphorous 4.1 mg/dL Normal 2.2-4.6 [facility] Comment on above: Performed By: #### C A, MGO, CHM7, HFP, IPB ####[facility] (DEFAULT)[address] [place] [address] PT,INR,PTTon 01-16-2024 aPTT Coag (Bld) [Time] 29.6 s Normal 24.0-34.3 [facility] Comment on above: Performed By: #### P TPTT, HSDDI ####[facility] (DEFAULT)[address] [facility] [place] [address] aPTT Coag (PPP) [Time] 29.6 s [facility] INR Coag (Bld) [Relative time] 1.2 {INR} High 0.9 - 1.1 [facility] INR Coag (PPP) [Relative time] 1.2 {INR} High 0.9-1.1 [facility] Comment on above: Performed By: #### P TPTT, HSDDI ####[facility] (DEFAULT)[address] [facility] [place] [address] PT Coag (PPP) [Time] 14.9 s High 11.9-14.2 [facility] Comment on above: Performed By: #### P TPTT, HSDDI ####[facility] (DEFAULT)[address] [facility] [place] [address] PT Coag (PPP) [Time] 14.9 s High [facility] TACROLIMUS LEVEL, TROUGH (NE E DRUG LEVEL)Ordered By: Jimy Castillo on 01-16-2024 Interpretation and review of laboratory results Normal [facility] Tacrolimus (Bld) [Mass/Vol] 5.7 ng/mL Bone Marrow Transplant: 4.0-12.0, Therapeutic: 5.0-15.0 [facility] Method performed is a chemiluminescent microparticle immunoasssay on the [employer] i2000. The range is based on experience at [facility] and users should be aware that target concentrations vary widely depending on concomitant therapy, time post-transplant, and desired degree of immunosuppression. [facility] TACROLIMUS LEVEL, TROUGH (NE E DRUG LEVEL)on 01-16-2024 Tacrolimus, Trough 5.7 ng/mL Normal Bone Susana ow Transplant: 4.0-12.0, Therapeutic: 5.0-15.0 [facility] Comment on above: Order Comment: Pleas e draw at specified interval PRIOR to dose. Do not hold dose to wait for level. Specimens batched twice per day, (M-F) and once per day weekendsMethod performed is a chemiluminescent microparticle immunoasssay on the [employer] i2000.The range is based on experience at [facility] and users should be aware that target concentrations vary widely depending on concomitant therapy, time post-transplant, and desired degree of immunosuppression. Performed By: #### T ACRO ####[facility] (DEFAULT)[address] [place] [address] US ABDOMEN LIVER DOPPLERon 0 01-16-2024 US ABDOMEN LIVER DOPPLER Normal [facility] US.doppler Abdominal vessels on 01-16-2024 Radiology Study observation (narrative) [facility] IMPRESSION: 1. Patent liver transplant vasculature. 2. [...] pleural effusion. Trace right upper quadrant [facility]. [facility] Ab[facility] vessels Ordered By: Iona Duran on 01-16-2024 [facility] Work Phone: XR CHEST PA AND LATERAL 2 EWSon 01-16-2024 XR CHEST PA AND LATERAL 2 VIEWS Normal [facility] XR Chest PA and Lateralon Radiology Study observation (narrative) [facility] IMPRESSION: Moderate right pleural effusion. OLOGY EXAM: [...] Normal IMPRESSION IMPRESSION: Moderate right [facility] eff[facility]. [facility] XR Chest PA and LateralOrder ed By: Daisha Patterson on 01-16-2024 [facility] Work Phone: ALL CBC WITH AUTO DIFFon BASOPHILS ABSOLUTE AUTO 0.0 [facility] Basophils/100 WBC (Bld) 0.5 % 0.2 - 2.0 % [facility] Eosinophils/100 WBC (Bld) 2.8 % 0.9 - 7.0 % [facility] Erythrocyte distribution width (RBC) [Ratio] 13.8 % 11.0 - 15.0 % [facility] Hematocrit (Bld) [Volume fraction] 43.7 % 42.0 - 54.0 % [facility] Hemoglobin (Bld) [Mass/Vol] 14.0 g/dL 14.0 - 18.0 g/dL [facility] IMMATURE GRANULOCYTES ABS AUTO 0.01 [facility] Immature granulocytes/100 WBC (Bld) 0.3 % 0.0 - 0.5 % [facility] LYMPHOCYTES ABSOLUTE AUTO 1.5 [facility] Lymphocytes/100 WBC (Bld) 37.5 % 20.5 - 60.0 % [facility] MCH (RBC) [Entitic mass] 28.4 pg 25.9 - 34.0 pg [facility] MCHC (RBC) [Mass/Vol] 32.0 g/dL 29.9 - 35.2 g/dL [facility] MCV (RBC) [Entitic vol] 88.6 fL 80.0 - 94.0 fL [facility] MONOCYTES ABSOLUTE AUTO 0.5 [facility] Monocytes/100 WBC (Bld) 11.9 % 1.7 - 12.0 % [facility] NEUTROPHILS ABSOLUTE AUTO 1.9 [facility] Neutrophils/100 WBC (Bld) 47.0 % 43.0 - 75.0 % [facility] Platelet mean volume (Bld) [Entitic vol] 10.3 fL 9.5 - 13.5 fL [facility] TBH EO # 0.1 [facility] TBH PLT 180 [facility] TB RBC 4.93 [facility] TBH WBC 4.0 [facility] ALL CBC WITH AUTO DIFFon BASOPHILS ABSOLUTE AUTO 0.0 [facility] Basophils/100 WBC (Bld) 0.5 % 0.2 - 2.0 % [facility] Eosinophils/100 WBC (Bld) 2.6 % 0.9 - 7.0 % [facility] Erythrocyte distribution width (RBC) [Ratio] 13.5 % 11.0 - 15.0 % [facility] Hematocrit (Bld) [Volume fraction] 43.8 % 42.0 - 54.0 % [facility] Hemoglobin (Bld) [Mass/Vol] 14.0 g/dL 14.0 - 18.0 g/dL [facility] IMMATURE GRANULOCYTES ABS AUTO 0.00 [facility] Immature granulocytes/100 WBC (Bld) 0.0 % 0.0 - 0.5 % [facility] Interpretation and review of laboratory results Abnormal [facility] LYMPHOCYTES ABSOLUTE AUTO 1.8 [facility] Lymphocytes/100 WBC (Bld) 45.2 % 20.5 - 60.0 % [facility] MCH (RBC) [Entitic mass] 27.9 pg 25.9 - 34.0 pg [facility] MCHC (RBC) [Mass/Vol] 32.0 g/dL 29.9 - 35.2 g/dL [facility] MCV (RBC) [Entitic vol] 87.4 fL 80.0 - 94.0 fL [facility] MONOCYTES ABSOLUTE AUTO 0.4 [facility] Monocytes/100 WBC (Bld) 9.6 % 1.7 - 12.0 % [facility] NEUTROPHILS ABSOLUTE AUTO 1.6 [facility] Neutrophils/100 WBC (Bld) 42.1 % Low 43.0 - 75.0 % [facility] Platelet mean volume (Bld) [Entitic vol] 9.8 fL 9.5 - 13.5 fL [facility] TBH EO # 0.1 [facility] TBH PLT 180 [facility] TB RBC 5.01 [facility] WBC 3.9 Low [facility] CHEM 7 (LYTES,BUN,CREA,GLUC) on 09-11-2023 Anion gap [Moles/Vol] 13 mmol/L Normal 7-17 [facility] Comment on above: Performed By: #### M MERLE, CHM7 ####[facility] (DEFAULT)[address] [place] [address] Chloride [Moles/Vol] 111 mmol/L High 98-108 [facility] Comment on above: Performed By: #### NATHANIEL RAMÍREZ ####[facility] (DEFAULT)[address] [place] [address] [place] [address] CO2 [Moles/Vol] 20 mmol/L Low 21-31 [facility] Comment on above: Performed By: #### TJ RAMÍREZ7 ####[facility] (DEFAULT)[address] [place] [address] Creatinine [Mass/Vol] 1.13 mg/dL Normal 0.70-1.30 [facility] Comment on above: Performed By: #### TJ RAMÍREZ7 ####[facility] (DEFAULT)[address] [place] [address] eGFR, CKD-EPI, Male 79 - PINF [facility] GFR/1.73 sq M.predicted among non-blacks MDRD (S/P/Bld) [Vol rate/Area] 78 mL/min/{1.73_m2} Normal >=60 [facility] Comment on above: Result Comment: Repo rted eGFR is based on the CKD-EPI 2020 equation using creatinine, age, and sex. Performed By: #### NATHANIEL RAMÍREZ ####[facility] (DEFAULT)[address] [place] [address] Glucose [Mass/Vol] 109 mg/dL High 70-99 [facility] Comment on above: Performed By: #### NATHANIEL RAMÍREZ ####[facility] (DEFAULT)[address] [place] [address] Interpretation and review of laboratory results Abnormal [facility] Osmolality [Osmolality] 295 mosm/kg Normal 278-305 [facility] Comment on above: Performed By: #### NATHANIEL RAMÍREZ ####[facility] (DEFAULT)[address] [place] [address] [place] [address] Osmolality Calc [Osmolality] 295 [facility] Potassium [Moles/Vol] 4.3 mmol/L Normal 3.5-5.0 [facility] Comment on above: Performed By: #### TJ RAMÍREZ7 ####[facility] (DEFAULT)[address] [place] [address] Sodium [Moles/Vol] 140 mmol/L Normal 135-145 [facility] Comment on above: Performed By: #### TJ RAMÍREZ7 ####[facility] (DEFAULT)[address] [place] [address] Urea nitrogen [Mass/Vol] 16 mg/dL Normal 7-25 [facility] Comment on above: Performed By: #### TJ RAMÍREZ7 ####[facility] (DEFAULT)[address] [place] [address] Urea nitrogen/Creatinine [Mass ratio] 14 mg/mg Normal [facility] Comment on above: Performed By: #### TJ RAMÍREZ7 ####[facility] (DEFAULT)[address] [place] [address] GLUCOSE POCon 09-11-2023 Glucose [Mass/Vol] 108 mg/dL High 70 - 99 mg/dL [facility] Interpretation and review of laboratory results Abnormal [facility] POC Sample Type CAPBL [facility] Legionella sp identified Org specific cx Nom (Unsp spec)on 09-11-2023 Bacteria identified Cx Nom (Unsp spec) NO GROWTH DAY 7 OF 7 [facility] MAGNESIUMon 09-11-2023 Interpretation and review of laboratory results Normal [facility] Magnesium [Mass/Vol] 1.6 mg/dL Normal 1.6-2.6 [facility] Comment on above: Performed By: #### TJ RAMÍREZ7 ####[facility] (DEFAULT)[address] [place] [address] No Panel Informationon 09-11 [facility] TACROLIMUS LEVEL, TROUGH (NE E DRUG LEVEL)on 09-11-2023 Interpretation and review of laboratory results Normal [facility] Tacrolimus (Bld) [Mass/Vol] 11.5 ng/mL [facility] Tacrolimus, Trough 11.5 ng/mL Normal Bone Susana ow Transplant: 4.0-12.0, Therapeutic: 5.0-15.0 [facility] Comment on above: Order Comment: Pleas e draw at specified interval PRIOR to dose. Do not hold dose to wait for level. Specimens batched twice per day, (M-F) and once per day weekendsMethod performed is a chemiluminescent microparticle immunoasssay on the [employer] i2000.The range is based on experience at [facility] and users should be aware that target concentrations vary widely depending on concomitant therapy, time post-transplant, and desired degree of immunosuppression. Performed By: #### T ACRO ####[facility] (DEFAULT)[address] [place] [address] [facility] CBC,PLATELETSon 09-10-2023 Erythrocyte distribution width (RBC) [Ratio] 13.9 % 10.9 - 14.3 % [facility] Hematocrit (Bld) [Volume fraction] 40.0 % Normal 39.6-48.8 [facility] Comment on above: Performed By: #### H [facility] ####[facility] (DEFAULT)[address] [place] [address] Hemoglobin (Bld) [Mass/Vol] 12.7 g/dL Low 13.4-16.8 [facility] Comment on above: Performed By: #### H [facility] ####[facility] (DEFAULT)[address] [place] [address] MCH (RBC) [Entitic mass] 27.3 pg 26.1 - 33.3 pg [facility] MCHC (RBC) [Mass/Vol] 31.8 g/dL Low 31.9 - 36.5 g/dL [facility] MCV (RBC) [Entitic vol] 86.0 fL Normal 79.0-94.5 [facility] Comment on above: Performed By: #### H [facility] ####[facility] (DEFAULT)[address] [facility] [place] [address] Mean Cell Hgb 27.3 pg Normal 26.1-33.3 [facility] Comment on above: Performed By: #### H EMOGC ####[facility] (DEFAULT)[address] [place] [address] Mean Cell Hgb Conc 31.8 g/dL Low 31.9-36.5 [facility] Comment on above: Performed By: #### H EMOGC ####[facility] (DEFAULT)[address] [facility] [place] [address] Platelet mean volume (Bld) [Entitic vol] 9.5 fL Normal 8.7-12.3 [facility] Comment on above: Performed By: #### H EMOGC ####[facility] (DEFAULT)[address] [place] [address] Platelets (Bld) [#/Vol] 225 10*3/uL Normal 146-337 [facility] Comment on above: Performed By: #### H EMOGC ####[facility] (DEFAULT)[address] [facility] [place] [address] RBC (Bld) [#/Vol] 4.65 10*6/uL Normal 4.38-5.83 [facility] Comment on above: Performed By: #### H EMOGC ####[facility] (DEFAULT)[address] [facility] [place] [address] RBC Distribution 13.9 % Normal 10.9-14.3 [facility] Comment on above: Performed By: #### H EMOGC ####[facility] (DEFAULT)[address] [facility] [place] [address] WBC (Bld) [#/Vol] 6.52 10*3/uL Normal 3.73-10.10 [facility] Comment on above: Performed By: #### H EMOGC ####[facility] (DEFAULT)[address] [place] [address] CHEM 7 (LYTES,BUN,CREA,GLUC) on 09-10-2023 Anion gap [Moles/Vol] 13 mmol/L Normal 7-17 [facility] Comment on above: Performed By: #### NATHANIEL RAMÍREZ, HFP ####[facility] (DEFAULT)[address] [place] [address] Chloride [Moles/Vol] 111 mmol/L High 98-108 [facility] Comment on above: Performed By: #### NATHANIEL RAMÍREZ, HFP ####[facility] (DEFAULT)[address] [place] [address] CO2 [Moles/Vol] 20 mmol/L Low 21-31 [facility] Comment on above: Performed By: #### NATHANIEL RAMÍREZ, HFP ####[facility] (DEFAULT)[address] [place] [address] Creatinine [Mass/Vol] 1.27 mg/dL Normal 0.70-1.30 [facility] Comment on above: Performed By: #### NATHANIEL RAMÍREZ, HFP ####[facility] (DEFAULT)[address] [place] [address] eGFR, CKD-EPI, Male 69 - PINF [facility] GFR/1.73 sq M.predicted among non-blacks MDRD (S/P/Bld) [Vol rate/Area] 68 mL/min/{1.73_m2} Normal >=60 [facility] Comment on above: Result Comment: Repo rted eGFR is based on the CKD-EPI 2020 equation using creatinine, age, and sex. Performed By: #### NATHANIEL RAMÍREZ, HFP ####[facility] (DEFAULT)[address] [place] [address] Glucose [Mass/Vol] 100 mg/dL High 70-99 [facility] Comment on above: Performed By: #### NATHANIEL RAMÍREZ, HFP ####[facility] (DEFAULT)[address] [place] [address] Osmolality [Osmolality] 293 mosm/kg Normal 278-305 [facility] Comment on above: Performed By: #### NATHANIEL RAMÍREZ, HFP ####[facility] (DEFAULT)[address] [place] [address] Osmolality Calc [Osmolality] 293 [facility] Potassium [Moles/Vol] 4.4 mmol/L Normal 3.5-5.0 [facility] Comment on above: Performed By: #### NTAHANIEL RAMÍREZ, HFP ####[facility] (DEFAULT)[address] [facility] [place] [address] Sodium [Moles/Vol] 140 mmol/L Normal 135-145 [facility] Comment on above: Performed By: #### NATHANIEL RAMÍREZ, HFP ####[facility] (DEFAULT)[address] [facility] [place] [address] Urea nitrogen [Mass/Vol] 12 mg/dL Normal 7-25 [facility] Comment on above: Performed By: #### NATHANIEL RAMÍREZ, HFP ####[facility] (DEFAULT)[address] [place] [address] Urea nitrogen/Creatinine [Mass ratio] 9 mg/mg [facility] Comment on above: Performed By: #### NATHANIEL RAMÍREZ, HFP ####[facility] (DEFAULT)[address] [facility] [place] [address] HEPATIC FUNCTION PANELon Albumin [Mass/Vol] 3.3 g/dL Low 3.5-5.0 [facility] Comment on above: Performed By: #### NATHANIEL RAMÍREZ, HFP ####[facility] (DEFAULT)[address] [place] [address] ALP [Catalytic activity/Vol] 143 U/L High 32-126 [facility] Comment on above: Performed By: #### M GO, CHM7, HFP ####[facility] (DEFAULT)[address] [place] [address] ALT [Catalytic activity/Vol] 28 U/L Normal 10-52 [facility] Comment on above: Performed By: #### M HELEN BLOOMM7, HFP ####[facility] (DEFAULT)[address] [place] [address] AST [Catalytic activity/Vol] 29 U/L Normal 10-39 [facility] Comment on above: Performed By: #### M TJ BLOOM7, HFP ####[facility] (DEFAULT)[address] [place] [address] Bilirubin [Mass/Vol] 0.9 mg/dL Normal <1.5 [facility] Comment on above: Performed By: #### NATHANIEL RAMÍREZ, HFP ####[facility] (DEFAULT)[address] [place] [address] Bilirubin.direct [Mass/Vol] 0.2 mg/dL NINF - 0.3 mg/dL [facility] Bilirubin.indirect [Mass/Vol] 0.2 mg/dL Normal <0.3 [facility] Comment on above: Performed By: #### NATHANIEL RAMÍREZ, HFP ####[facility] (DEFAULT)[address] [place] [address] Protein [Mass/Vol] 6.8 g/dL Normal 6.4-8.3 [facility] Comment on above: Performed By: #### M NATHANIEL BLOOM, HFP ####[facility] (DEFAULT)[address] [place] [address] MAGNESIUMon 09-10-2023 Interpretation and review of laboratory results Normal [facility] Magnesium [Mass/Vol] 1.9 mg/dL Normal 1.6-2.6 [facility] Comment on above: Performed By: #### Rod BLOOM CHM7, HFP ####[facility] (DEFAULT)[address] [place] [address] No Panel Informationon 09-10 Interpretation and review of laboratory results Abnormal [facility] TACROLIMUS LEVEL, TROUGH (NE E DRUG LEVEL)Ordered By: iJmy Castillo on 09-10-2023 Interpretation and review of laboratory results Normal [facility] Tacrolimus (Bld) [Mass/Vol] 11.8 ng/mL [facility], TROUGH (NE E DRUG LEVEL)on 09-10-2023 Tacrolimus, Trough 11.8 ng/mL Normal Bone Susana ow Transplant: 4.0-12.0, Therapeutic: 5.0-15.0 [facility] Comment on above: Order Comment: Pleas e draw at specified interval PRIOR to dose. Do not hold dose to wait for level. Specimens batched twice per day, (M-) and once per day weekendsMethod performed is a chemiluminescent microparticle immunoasssay on the [employer] i2000.The range is based on experience at [facility] and users should be aware that target concentrations vary widely depending on concomitant therapy, time post-transplant, and desired degree of immunosuppression. Performed By: #### T ACRO ####[facility] (DEFAULT)[address] [place] [id number] CHEM 7 (LYTES,BUN,CREA,GLUC) on 09-09-2023 Anion gap [Moles/Vol] 14 mmol/L Normal 7-17 [facility] Comment on above: Performed By: #### M NATHANIEL BLOOM, IPB ####[facility] (DEFAULT)[address] [place] [address] Anion gap [Moles/Vol] 14 mmol/L 7 - 17 mmol/L [facility] Chloride [Moles/Vol] 113 mmol/L High 98-108 [facility] Comment on above: Performed By: #### M HELEN BLOOMMJessica, IPB ####[facility] (DEFAULT)[address] [place] [address] Chloride [Moles/Vol] 113 mmol/L High 98 - 10 8 mmol/L [facility] CO2 [Moles/Vol] 18 mmol/L Low 21-31 [facility] Comment on above: Performed By: #### NATHANIEL RAMÍREZ, IPB ####[facility] (DEFAULT)[address] [place] [address] CO2 [Moles/Vol] 18 mmol/L Low 21 - 31 mmol/L [facility] Creatinine [Mass/Vol] 1.03 mg/dL Normal 0.70-1.30 [facility] Comment on above: Performed By: #### NATHANIEL RAMÍREZ, IPB ####[facility] (DEFAULT)[address] [place] [address] Creatinine [Mass/Vol] 1.03 mg/dL 0.70 - 1.30 mg/dL [facility] eGFR, CKD-EPI, Male 87 - PINF [facility] GFR/1.73 sq M.predicted among non-blacks MDRD (S/P/Bld) [Vol rate/Area] 87 mL/min/{1.73_m2} Normal >=60 [facility] Comment on above: Result Comment: Repo rted eGFR is based on the CKD-EPI 2020 equation using creatinine, age, and sex. Performed By: #### NATHANIEL RAMÍREZ, CASTROB ####[facility] (DEFAULT)[address] [place] [address] Glucose [Mass/Vol] 106 mg/dL High 70-99 [facility] Comment on above: Performed By: #### NATHANIEL RAMÍREZ, CASTROB ####[facility] (DEFAULT)[address] [place] [address] Glucose [Mass/Vol] 106 mg/dL High 70 - 99 mg/dL [facility] Interpretation and review of laboratory results Abnormal [facility] Osmolality [Osmolality] 294 mosm/kg Normal 278-305 [facility] Comment on above: Performed By: #### NATHANIEL RAMÍREZ, IPB ####[facility] (DEFAULT)[address] [place] [address] Osmolality Calc [Osmolality] 294 [facility] Potassium [Moles/Vol] 4.0 mmol/L Normal 3.5-5.0 [facility] Comment on above: Performed By: #### NATHANIEL RAMÍREZ, IPB ####[facility] (DEFAULT)[address] [place] [address] Potassium [Moles/Vol] 4.0 mmol/L 3.5 - 5.0 mmol/L [facility] Sodium [Moles/Vol] 141 mmol/L Normal 135-145 [facility] Comment on above: Performed By: #### NATHANIEL RAMÍREZ, IPB ####[facility] (DEFAULT)[address] [facility] [place] [address] Sodium [Moles/Vol] 141 mmol/L 135 - 145 mmol/L [facility] Urea nitrogen [Mass/Vol] 10 mg/dL Normal 7-25 [facility] Comment on above: Performed By: #### NATHANIEL RAMÍREZ, IPB ####[facility] (DEFAULT)[address] [facility] [place] [address] Urea nitrogen [Mass/Vol] 10 mg/dL 7 - 25 mg/dL [facility] Urea nitrogen/Creatinine [Mass ratio] 10 mg/mg Normal [facility] Comment on above: Performed By: #### NATHANIEL RAMÍREZ, IPB ####[facility] (DEFAULT)[address] [facility] [place] [address] Urea nitrogen/Creatinine [Mass ratio] 10 mg/mg [facility] MAGNESIUMon 09-09-2023 Magnesium [Mass/Vol] 1.6 mg/dL Normal 1.6-2.6 [facility] Comment on above: Performed By: #### NATHANIEL RAMÍREZ, IPB ####[facility] (DEFAULT)[address] [place] [address] Magnesium [Mass/Vol] 1.6 mg/dL 1.6 - 2 .6 mg/dL [facility] No Panel Informationon 09-09 Interpretation and review of laboratory results Normal [facility] PHOSPHATE, INORGANICon 09-09 Phosphate [Mass/Vol] 3.8 mg/dL 2.2 - 4 .6 mg/dL [facility] Phosphorous 3.8 mg/dL Normal 2.2-4.6 [facility] Comment on above: Performed By: #### M GO, CHM7, IPB ####[facility] (DEFAULT)[address] [place] [address] TACROLIMUS LEVEL, TROUGH (NE E DRUG LEVEL)on 09-09-2023 Interpretation and review of laboratory results Normal [facility] Tacrolimus (Bld) [Mass/Vol] 9.2 ng/mL [facility] Tacrolimus, Trough 9.2 ng/mL Normal Bone Susana ow Transplant: 4.0-12.0, Therapeutic: 5.0-15.0 [facility] Comment on above: Order Comment: Pleas e draw at specified interval PRIOR to dose. Do not hold dose to wait for level. Specimens batched twice per day, (M-F) and once per day weekendsMethod performed is a chemiluminescent microparticle immunoasssay on the [employer] i2000.The range is based on experience at [facility] and users should be aware that target concentrations vary widely depending on concomitant therapy, time post-transplant, and desired degree of immunosuppression. Performed By: #### T ACRO ####[facility] (DEFAULT)[address] [place] [address] [facility] CBC,PLATELETSon 09-08-2023 Erythrocyte distribution width (RBC) [Ratio] 13.6 % 10.9 - 14.3 % [facility] Hematocrit (Bld) [Volume fraction] 36.1 % Low 39.6-48.8 [facility] Comment on above: Performed By: #### H EMOGC ####[facility] (DEFAULT)[address] [place] [address] Hemoglobin (Bld) [Mass/Vol] 11.6 g/dL Low 13.4-16.8 [facility] Comment on above: Performed By: #### H EMOGC ####[facility] (DEFAULT)[address] [place] [address] MCH (RBC) [Entitic mass] 27.4 pg 26.1 - 33.3 pg [facility] MCHC (RBC) [Mass/Vol] 32.1 g/dL 31.9 - 36.5 g/dL [facility] MCV (RBC) [Entitic vol] 85.1 fL Normal 79.0-94.5 [facility] Comment on above: Performed By: #### H EMOGC ####[facility] (DEFAULT)[address] [place] [address] Mean Cell Hgb 27.4 pg Normal 26.1-33.3 [facility] Comment on above: Performed By: #### H EMOGC ####[facility] (DEFAULT)[address] [place] [address] Mean Cell Hgb Conc 32.1 g/dL Normal 31.9-36.5 [facility] Comment on above: Performed By: #### H EMOGC ####[facility] (DEFAULT)[address] [place] [address] Platelet mean volume (Bld) [Entitic vol] 9.5 fL Normal 8.7-12.3 [facility] Comment on above: Performed By: #### H EMOGC ####[facility] (DEFAULT)[address] [place] [address] Platelets (Bld) [#/Vol] 182 10*3/uL Normal 146-337 [facility] Comment on above: Performed By: #### H EMOGC ####[facility] (DEFAULT)[address] [facility] [place] [address] RBC (Bld) [#/Vol] 4.24 10*6/uL Low 4.38-5.83 [facility] Comment on above: Performed By: #### H [facility] ####[facility] (DEFAULT)[address] [place] [address] RBC Distribution 13.6 % Normal 10.9-14.3 [facility] Comment on above: Performed By: #### H [facility] ####[facility] (DEFAULT)[address] [facility] [place] [address] WBC (Bld) [#/Vol] 4.59 10*3/uL Normal 3.73-10.10 [facility] Comment on above: Performed By: #### H [facility] ####[facility] (DEFAULT)[address] [place] [address] CHEM 7 (LYTES,BUN,CREA,GLUC) on 09-08-2023 Anion gap [Moles/Vol] 12 mmol/L Normal 7-17 [facility] Comment on above: Performed By: #### M MERLE CHM7, HFP, IPB ####[facility] (DEFAULT)[address] [facility] [place] [address] Chloride [Moles/Vol] 113 mmol/L High 98-108 [facility] Comment on above: Performed By: #### M MERLE CHM7, HFP, IPB ####[facility] (DEFAULT)[address] [place] [address] CO2 [Moles/Vol] 21 mmol/L Normal 21-31 [facility] Comment on above: Performed By: #### M MERLE CHM7, HFP, IPB ####[facility] (DEFAULT)[address] [place] [address] Creatinine [Mass/Vol] 1.14 mg/dL Normal 0.70-1.30 [facility] Comment on above: Performed By: #### M GO, CHMJessica, HFP, IPB ####[facility] (DEFAULT)[address] [facility] [place] [address] eGFR, CKD-EPI, Male 77 - PINF [facility] GFR/1.73 sq M.predicted among non-blacks MDRD (S/P/Bld) [Vol rate/Area] 77 mL/min/{1.73_m2} Normal >=60 [facility] Comment on above: Result Comment: Repo rted eGFR is based on the CKD-EPI 2020 equation using creatinine, age, and sex. Performed By: #### NATHANIEL RAMÍREZ, HFP, IPB ####[facility] (DEFAULT)[address] [place] [address], [place] [address] Glucose [Mass/Vol] 107 mg/dL High 70-99 [facility] Comment on above: Performed By: #### NATHANIEL RAMÍREZ, HFP, IPB ####[facility] (DEFAULT)[address] [place] [address], [place] [address] Osmolality [Osmolality] 296 mosm/kg Normal 278-305 [facility] Comment on above: Performed By: #### Rod BLOOM CHMJessica, HFP, IPB ####[facility] (DEFAULT)[address] [place] [address] Osmolality Calc [Osmolality] 296 [facility] Potassium [Moles/Vol] 3.9 mmol/L Normal 3.5-5.0 [facility] Comment on above: Performed By: #### Rod BLOOM CHM7, HFP, IPB ####[facility] (DEFAULT)[address] [place] [address], [place] [address] Sodium [Moles/Vol] 142 mmol/L Normal 135-145 U [facility] Comment on above: Performed By: #### Rod BLOOM CHM7, HFP, IPB ####[facility] (DEFAULT)[address] [place] [address], [place] [address] Urea nitrogen [Mass/Vol] 11 mg/dL Normal 7-25 [facility] Comment on above: Performed By: #### M GO, CHM7, HFP, IPB ####[facility] (DEFAULT)[address] [place] [address] Urea nitrogen/Creatinine [Mass ratio] 10 mg/mg Normal [facility] Comment on above: Performed By: #### M GO, CHM7, HFP, IPB ####[facility] (DEFAULT)[address] [place] [address] HEPATIC FUNCTION PANELon Albumin [Mass/Vol] 2.9 g/dL Low 3.5-5.0 [facility] Comment on above: Performed By: #### M GO, CHM7, HFP, IPB ####[facility] (DEFAULT)[address] [place] [address] ALP [Catalytic activity/Vol] 133 U/L High 32-126 [facility] Comment on above: Performed By: #### M GO, CHM7, HFP, IPB ####[facility] (DEFAULT)[address] [place] [address] ALT [Catalytic activity/Vol] 23 U/L Normal 10-52 [facility] Comment on above: Performed By: #### M GO, CHM7, HFP, IPB ####[facility] (DEFAULT)[address] [place] [address] AST [Catalytic activity/Vol] 23 U/L Normal 10-39 [facility] Comment on above: Performed By: #### M GO, CHM7, HFP, IPB ####[facility] (DEFAULT)[address] [place] [address] Bilirubin [Mass/Vol] 0.8 mg/dL Normal <1.5 [facility] Comment on above: Performed By: #### M GO, CHM7, HFP, IPB ####[facility] (DEFAULT)[address] [place] [address] Bilirubin.direct [Mass/Vol] 0.2 mg/dL NINF - 0.3 mg/dL [facility] Bilirubin.indirect [Mass/Vol] 0.2 mg/dL Normal <0.3 [facility] Comment on above: Performed By: #### M HELEN BLOOMM7, HFP, IPB ####[facility] (DEFAULT)[address] [place] [address] Protein [Mass/Vol] 5.9 g/dL Low 6.4-8.3 [facility] Comment on above: Performed By: #### M MERLE, HELENM7, HFP, IPB ####[facility] (DEFAULT)[address] [place] [address] MAGNESIUMon 09-08-2023 Interpretation and review of laboratory results Normal [facility] Magnesium [Mass/Vol] 1.8 mg/dL Normal 1.6-2.6 [facility] Comment on above: Performed By: #### NATHANIEL RAMÍREZ, HFP, IPB ####[facility] (DEFAULT)[address] [place] [address] No Panel Informationon 09-08 Interpretation and review of laboratory results Abnormal [facility] PHOSPHATE, INORGANICon 09-08 Interpretation and review of laboratory results Normal [facility] Phosphate [Mass/Vol] 4.1 mg/dL 2.2 - 4 .6 mg/dL [facility] Phosphorous 4.1 mg/dL Normal 2.2-4.6 [facility] Comment on above: Performed By: #### Rod BLOOM CHMJessica, HFP, IPB ####[facility] (DEFAULT)[address] [place] [address] [facility] TACROLIMUS LEVEL, TROUGH (NE E DRUG LEVEL)on 09-08-2023 Interpretation and review of laboratory results Normal [facility] Tacrolimus (Bld) [Mass/Vol] 8.5 ng/mL [facility] Tacrolimus, Trough 8.5 ng/mL Normal Bone Susana ow Transplant: 4.0-12.0, Therapeutic: 5.0-15.0 [facility] Comment on above: Order Comment: Dilan gregory draw at specified interval PRIOR to dose. Do not hold dose to wait for level. Specimens batched twice per day, (M-F) and once per day weekendsMethod performed is a chemiluminescent microparticle immunoasssay on the [employer] i2000.The range is based on experience at [facility] and users should be aware that target concentrations vary widely depending on concomitant therapy, time post-transplant, and desired degree of immunosuppression. Performed By: #### T ACRO ####[facility] (DEFAULT)[address] [place] [address] [facility] CBC,PLATELETSon 09-07-2023 Erythrocyte distribution width (RBC) [Ratio] 13.5 % 10.9 - 14.3 % [facility] Hematocrit (Bld) [Volume fraction] 37.1 % Low 39.6-48.8 [facility] Comment on above: Performed By: #### H [facility] ####[facility] (DEFAULT)[address] [place] [address] Hemoglobin (Bld) [Mass/Vol] 11.9 g/dL Low 13.4-16.8 [facility] Comment on above: Performed By: #### [facility] ####[facility] (DEFAULT)[address] [place] [address] MCH (RBC) [Entitic mass] 27.7 pg 26.1 - 33.3 pg [facility] MCHC (RBC) [Mass/Vol] 32.1 g/dL 31.9 - 36.5 g/dL [facility] MCV (RBC) [Entitic vol] 86.5 fL Normal 79.0-94.5 [facility] Comment on above: Performed By: #### H EMOGC ####[facility] (DEFAULT)[address] [place] [address] Mean Cell Hgb 27.7 pg Normal 26.1-33.3 [facility] Comment on above: Performed By: #### H EMOGC ####[facility] (DEFAULT)[address] [place] [address] Mean Cell Hgb Conc 32.1 g/dL Normal 31.9-36.5 [facility] Comment on above: Performed By: #### H EMOGC ####[facility] (DEFAULT)[address] [place] [address] Platelet mean volume (Bld) [Entitic vol] 9.6 fL Normal 8.7-12.3 [facility] Comment on above: Performed By: #### H EMOGC ####[facility] (DEFAULT)[address] [place] [address] Platelets (Bld) [#/Vol] 176 10*3/uL Normal 146-337 [facility] Comment on above: Performed By: #### H EMOGC ####[facility] (DEFAULT)[address] [facility] [place] [address] RBC (Bld) [#/Vol] 4.29 10*6/uL Low 4.38-5.83 [facility] Comment on above: Performed By: #### H EMOGC ####[facility] (DEFAULT)[address] [place] [address] RBC Distribution 13.5 % Normal 10.9-14.3 [facility] Comment on above: Performed By: #### H EMOGC ####[facility] (DEFAULT)[address] [place] [address] WBC (Bld) [#/Vol] 4.10 10*3/uL Normal 3.73-10.10 [facility] Comment on above: Performed By: #### H EMOGC ####[facility] (DEFAULT)[address] [facility] [place] [address] [facility] CHEM 7 (LYTES,BUN,CREA,GLUC) on 09-07-2023 Anion gap [Moles/Vol] 13 mmol/L Normal 7-17 [facility] Comment on above: Performed By: #### M MERLE CHM7, HFP, IPB ####[facility] (DEFAULT)[address] [place] [address] Chloride [Moles/Vol] 113 mmol/L High 98-108 [facility] Comment on above: Performed By: #### M MERLE CHM7, HFP, IPB ####[facility] (DEFAULT)[address] [place] [address] CO2 [Moles/Vol] 19 mmol/L Low 21-31 [facility] Comment on above: Performed By: #### Rod BLOOM CHM7, HFP, IPB ####[facility] (DEFAULT)[address] [place] [address] Creatinine [Mass/Vol] 1.22 mg/dL Normal 0.70-1.30 [facility] Comment on above: Performed By: #### Rod BLOOM CHM7, HFP, IPB ####[facility] (DEFAULT)[address] [place] [address] eGFR, CKD-EPI, Male 72 - PINF [facility] GFR/1.73 sq M.predicted among non-blacks MDRD (S/P/Bld) [Vol rate/Area] 71 mL/min/{1.73_m2} Normal >=60 [facility] Comment on above: Result Comment: Repo rted eGFR is based on the CKD-EPI 2020 equation using creatinine, age, and sex. Performed By: #### M MERLE CHM7, HFP, IPB ####[facility] (DEFAULT)[address] [place] [address] Glucose [Mass/Vol] 107 mg/dL High 70-99 [facility] Comment on above: Performed By: #### M MERLE CHM7, HFP, IPB ####[facility] (DEFAULT)[address] [place] [address] Osmolality [Osmolality] 295 mosm/kg Normal 278-305 [facility] Comment on above: Performed By: #### M MERLE CHM7, HFP, IPB ####[facility] (DEFAULT)[address] [place] [address] Osmolality Calc [Osmolality] 295 [facility] Potassium [Moles/Vol] 3.9 mmol/L Normal 3.5-5.0 [facility] Comment on above: Performed By: #### M MERLE CHM7, HFP, IPB ####[facility] (DEFAULT)[address] [place] [address] Sodium [Moles/Vol] 141 mmol/L Normal 135-145 [facility] Comment on above: Performed By: #### Rod BLOOM CHM7, HFP, IPB ####[facility] (DEFAULT)[address] [place] [address] Urea nitrogen [Mass/Vol] 13 mg/dL Normal 7-25 [facility] Comment on above: Performed By: #### Rod BLOOM CHM7, HFP, IPB ####[facility] (DEFAULT)[address] [place] [address] Urea nitrogen/Creatinine [Mass ratio] 11 mg/mg Normal [facility] Comment on above: Performed By: #### Rod BLOOM CHM7, HFP, IPB ####[facility] (DEFAULT)[address] [place] [address] HEPATIC FUNCTION PANELon Albumin [Mass/Vol] 2.9 g/dL Low 3.5-5.0 [facility] Comment on above: Performed By: #### Rod BLOOM CHM7, HFP, IPB ####[facility] (DEFAULT)[address] [place] [address] ALP [Catalytic activity/Vol] 111 U/L Normal 32-126 [facility] Comment on above: Performed By: #### M GO, CHM7, HFP, IPB ####[facility] (DEFAULT)[address] [place] [address] ALT [Catalytic activity/Vol] 18 U/L Normal 10-52 [facility] Comment on above: Performed By: #### M GO, CHM7, HFP, IPB ####[facility] (DEFAULT)[address] [place] [address] AST [Catalytic activity/Vol] 23 U/L Normal 10-39 [facility] Comment on above: Performed By: #### M MERLE, CHM7, HFP, IPB ####[facility] (DEFAULT)[address] [place] [address] Bilirubin [Mass/Vol] 0.8 mg/dL Normal <1.5 [facility] Comment on above: Performed By: #### M MERLE, CHM7, HFP, IPB ####[facility] (DEFAULT)[address] [place] [address] Bilirubin.direct [Mass/Vol] 0.3 mg/dL High NINF - 0.3 mg/dL [facility] Bilirubin.indirect [Mass/Vol] 0.3 mg/dL High <0.3 [facility] Comment on above: Performed By: #### M MERLE CHM7, HFP, IPB ####[facility] (DEFAULT)[address] [place] [address] Protein [Mass/Vol] 6.0 g/dL Low 6.4-8.3 [facility] Comment on above: Performed By: #### M MERLE, CHM7, HFP, IPB ####[facility] (DEFAULT)[address] [place] [address] MAGNESIUMon 09-07-2023 Magnesium [Mass/Vol] 1.7 mg/dL Normal 1.6-2.6 [facility] Comment on above: Performed By: #### M GO, CHM7, HFP, IPB ####[facility] (DEFAULT)[address] [place] [address] No Panel Informationon 09-07 Interpretation and review of laboratory results Abnormal [facility] Interpretation and review of laboratory results Normal [facility] PHOSPHATE, INORGANICon 09-07 Phosphate [Mass/Vol] 4.4 mg/dL 2.2 - 4 .6 mg/dL [facility] Phosphorous 4.4 mg/dL Normal 2.2-4.6 [facility] Comment on above: Performed By: #### M GO, CHM7, HFP, IPB ####[facility] (DEFAULT)[address] [place] [id number] TACROLIMUS LEVEL, TROUGH (NE E DRUG LEVEL)Ordered By: Elizabeth Maldonado on 09-07-2023 Interpretation and review of laboratory results Normal [facility] Tacrolimus (Bld) [Mass/Vol] 7.8 ng/mL [facility] TACROLIMUS LEVEL, TROUGH (NE E DRUG LEVEL)on 09-07-2023 Tacrolimus, Trough 7.8 ng/mL Normal Bone Susana ow Transplant: 4.0-12.0, Therapeutic: 5.0-15.0 [facility] Comment on above: Order Comment: Pleas e draw at specified interval PRIOR to dose. Do not hold dose to wait for level. Specimens batched twice per day, (M-) and once per day weekendsMethod performed is a chemiluminescent microparticle immunoasssay on the [employer] i2000.The range is based on experience at [facility] and users should be aware that target concentrations vary widely depending on concomitant therapy, time post-transplant, and desired degree of immunosuppression. Performed By: #### T ACRO ####[facility] (DEFAULT)[address] [place] [id number] CBC,PLATELETSon 09-06-2023 Erythrocyte distribution width (RBC) [Ratio] 13.4 % 10.9 - 14.3 % [facility] Hematocrit (Bld) [Volume fraction] 38.4 % Low 39.6-48.8 [facility] Comment on above: Performed By: #### H EMOGC ####[facility] (DEFAULT)[address] [place] [address] Hemoglobin (Bld) [Mass/Vol] 11.9 g/dL Low 13.4-16.8 [facility] Comment on above: Performed By: #### H EMOGC ####[facility] (DEFAULT)[address] [place] [address] Interpretation and review of laboratory results Abnormal [facility] MCH (RBC) [Entitic mass] 26.6 pg 26.1 - 33.3 pg [facility] MCHC (RBC) [Mass/Vol] 31.0 g/dL Low 31.9 - 36.5 g/dL [facility] MCV (RBC) [Entitic vol] 85.9 fL Normal 79.0-94.5 [facility] Comment on above: Performed By: #### H EMOGC ####[facility] (DEFAULT)[address] [place] [address] Mean Cell Hgb 26.6 pg Normal 26.1-33.3 [facility] Comment on above: Performed By: #### H EMOGC ####[facility] (DEFAULT)[address] [place] [address] Mean Cell Hgb Conc 31.0 g/dL Low 31.9-36.5 [facility] Comment on above: Performed By: #### H EMOGC ####[facility] (DEFAULT)[address] [place] [address] Platelet mean volume (Bld) [Entitic vol] 9.7 fL Normal 8.7-12.3 [facility] Comment on above: Performed By: #### H EMOGC ####[facility] (DEFAULT)[address] [place] [address] Platelets (Bld) [#/Vol] 181 10*3/uL Normal 146-337 [facility] Comment on above: Performed By: #### H EMO ####[facility] (DEFAULT)[address] [place] [address] RBC (Bld) [#/Vol] 4.47 10*6/uL Normal 4.38-5.83 [facility] Comment on above: Performed By: #### H EMO ####[facility] (DEFAULT)[address] [place] [address] RBC Distribution 13.4 % Normal 10.9-14.3 [facility] Comment on above: Performed By: #### H EMO ####[facility] (DEFAULT)[address] [place] [address] WBC (Bld) [#/Vol] 4.41 10*3/uL Normal 3.73-10.10 [facility] Comment on above: Performed By: #### H EMO ####[facility] (DEFAULT)[address] [place] [address] [facility] CHEM 7 (LYTES,BUN,CREA,GLUC) on 09-06-2023 Anion gap [Moles/Vol] 14 mmol/L Normal 7-17 [facility] Comment on above: Performed By: #### M NATHANIEL BLOOM, HFP ####[facility] (DEFAULT)[address] [place] [address] Anion gap [Moles/Vol] 14 mmol/L 7 - 17 mmol/L [facility] Chloride [Moles/Vol] 109 mmol/L High 98-108 [facility] Comment on above: Performed By: #### M HELEN BLOOMM7, HFP ####[facility] (DEFAULT)[address] [place] [address] Chloride [Moles/Vol] 109 mmol/L High 98 - 10 8 mmol/L [facility] CO2 [Moles/Vol] 19 mmol/L Low 21-31 [facility] Comment on above: Performed By: #### NATHANIEL RAMÍREZ, HFP ####[facility] (DEFAULT)[address] [place] [address] CO2 [Moles/Vol] 19 mmol/L Low 21 - 31 mmol/L [facility] Creatinine [Mass/Vol] 1.26 mg/dL Normal 0.70-1.30 [facility] Comment on above: Performed By: #### NATHANIEL RAMÍREZ, HFP ####[facility] (DEFAULT)[address] [place] [address] Creatinine [Mass/Vol] 1.26 mg/dL 0.70 - 1.30 mg/dL [facility] eGFR, CKD-EPI, Male 70 - PINF [facility] GFR/1.73 sq M.predicted among non-blacks MDRD (S/P/Bld) [Vol rate/Area] 69 mL/min/{1.73_m2} Normal >=60 [facility] Comment on above: Result Comment: Repo rted eGFR is based on the CKD-EPI 2020 equation using creatinine, age, and sex. Performed By: #### NATHANIEL RAMÍREZ, HFP ####[facility] (DEFAULT)[address] [place] [address] Glucose [Mass/Vol] 114 mg/dL High 70-99 [facility] Comment on above: Performed By: #### NATHANEIL RAMÍREZ, HFP ####[facility] (DEFAULT)[address] [place] [address] Glucose [Mass/Vol] 114 mg/dL High 70 - 99 mg/dL [facility] Osmolality [Osmolality] 291 mosm/kg Normal 278-305 [facility] Comment on above: Performed By: #### NATHANIEL RAMÍRZE, HFP ####[facility] (DEFAULT)[address] [place] [address] Osmolality Calc [Osmolality] 291 [facility] Potassium [Moles/Vol] 4.1 mmol/L Normal 3.5-5.0 [facility] Comment on above: Performed By: #### NATHANIEL RAMÍREZ, HFP ####[facility] (DEFAULT)[address] [place] [address] Potassium [Moles/Vol] 4.1 mmol/L 3.5 - 5.0 mmol/L [facility] Sodium [Moles/Vol] 138 mmol/L Normal 135-145 [facility] Comment on above: Performed By: #### NATHANIEL RAMÍREZ, HFP ####[facility] (DEFAULT)[address] [facility] [place] [address] Sodium [Moles/Vol] 138 mmol/L 135 - 145 mmol/L [facility] Urea nitrogen [Mass/Vol] 16 mg/dL Normal 7-25 [facility] Comment on above: Performed By: #### NATHANIEL RAMÍREZ, HFP ####[facility] (DEFAULT)[address] [facility] [place] [address] Urea nitrogen [Mass/Vol] 16 mg/dL 7 - 25 mg/dL [facility] Urea nitrogen/Creatinine [Mass ratio] 13 mg/mg Normal [facility] Comment on above: Performed By: #### NATHANIEL RAMÍREZ, HFP ####[facility] (DEFAULT)[address] [place] [address] Urea nitrogen/Creatinine [Mass ratio] 13 mg/mg [facility] HEPATIC FUNCTION PANELon Albumin [Mass/Vol] 3.0 g/dL Low 3.5-5.0 [facility] Comment on above: Performed By: #### NATHANIEL RAMÍREZ, HFP ####[facility] (DEFAULT)[address] [place] [address] Albumin [Mass/Vol] 3.0 g/dL Low 3.5 - 5.0 g/dL [facility] ALP [Catalytic activity/Vol] 115 U/L Normal 32-126 [facility] Comment on above: Performed By: #### NATHANIEL RAMÍREZ, HFP ####[facility] (DEFAULT)[address] [place] [address] ALP [Catalytic activity/Vol] 115 U/L 32 - 126 U/L [facility] ALT [Catalytic activity/Vol] 25 U/L Normal 10-52 [facility] Comment on above: Performed By: #### TJ RAMÍREZ7, HFP ####[facility] (DEFAULT)[address] [place] [address] ALT [Catalytic activity/Vol] 25 U/L 10 - 52 U/L [facility] AST [Catalytic activity/Vol] 31 U/L Normal 10-39 [facility] Comment on above: Performed By: #### NATHANIEL RAMÍREZ, HFP ####[facility] (DEFAULT)[address] [facility] [place] [address] AST [Catalytic activity/Vol] 31 U/L 10 - 39 U/L [facility] Bilirubin [Mass/Vol] 1.0 mg/dL Normal <1.5 [facility] Comment on above: Performed By: #### Rod BLOOM CHM7, HFP ####[facility] (DEFAULT)[address] [facility] [place] [address] Bilirubin [Mass/Vol] 1.0 mg/dL [facility] mg/dL [facility] Bilirubin.direct [Mass/Vol] 0.3 mg/dL High NINF - 0.3 mg/dL [facility] Bilirubin.indirect [Mass/Vol] 0.3 mg/dL High <0.3 [facility] Comment on above: Performed By: #### Rod BLOOM CHM7, HFP ####[facility] (DEFAULT)[address] [place] [address] Protein [Mass/Vol] 6.3 g/dL Low 6.4-8.3 [facility] Comment on above: Performed By: #### M MERLE, CHM7, HFP ####[facility] (DEFAULT)[address] [place] [address] Protein [Mass/Vol] 6.3 g/dL Low 6.4 - 8.3 g/dL [facility] MAGNESIUMon 09-06-2023 Interpretation and review of laboratory results Normal [facility] Magnesium [Mass/Vol] 2.0 mg/dL Normal 1.6-2.6 [facility] Comment on above: Performed By: #### M MERLE, CHM7, HFP ####[facility] (DEFAULT)[address] [place] [address] Magnesium [Mass/Vol] 2.0 mg/dL 1.6 - 2 .6 mg/dL [facility] No Panel Informationon 09-06 Interpretation and review of laboratory results Abnormal [facility] TACROLIMUS LEVEL, TROUGH (NE E DRUG LEVEL)on 09-06-2023 Interpretation and review of laboratory results Normal [facility] Tacrolimus (Bld) [Mass/Vol] 6.7 ng/mL [facility] Tacrolimus, Trough 6.7 ng/mL Normal Bone Susana ow Transplant: 4.0-12.0, Therapeutic: 5.0-15.0 [facility] Comment on above: Order Comment: Pleas e draw at specified interval PRIOR to dose. Do not hold dose to wait for level. Specimens batched twice per day, (M-F) and once per day weekendsMethod performed is a chemiluminescent microparticle immunoasssay on the [employer] i2000.The range is based on experience at [facility] and users should be aware that target concentrations vary widely depending on concomitant therapy, time post-transplant, and desired degree of immunosuppression. Performed By: #### T ACRO ####[facility] (DEFAULT)[address] [place] [address] [facility] CBC,PLATELETSon 09-05-2023 Erythrocyte distribution width (RBC) [Ratio] 13.5 % 10.9 - 14.3 % [facility] Hematocrit (Bld) [Volume fraction] 35.6 % Low 39.6-48.8 [facility] Comment on above: Performed By: #### H EMOGC ####[facility] (DEFAULT)[address] [place] [address] Hemoglobin (Bld) [Mass/Vol] 11.4 g/dL Low 13.4-16.8 [facility] Comment on above: Performed By: #### H EMOGC ####[facility] (DEFAULT)[address] [place] [address] MCH (RBC) [Entitic mass] 27.5 pg 26.1 - 33.3 pg [facility] MCHC (RBC) [Mass/Vol] 32.0 g/dL 31.9 - 36.5 g/dL [facility] MCV (RBC) [Entitic vol] 86.0 fL Normal 79.0-94.5 [facility] Comment on above: Performed By: #### H EMO ####[facility] (DEFAULT)[address] [place] [address] Mean Cell Hgb 27.5 pg Normal 26.1-33.3 [facility] Comment on above: Performed By: #### H EMOGC ####[facility] (DEFAULT)[address] [place] [address] Mean Cell Hgb Conc 32.0 g/dL Normal 31.9-36.5 [facility] Comment on above: Performed By: #### H EMOGC ####[facility] (DEFAULT)[address] [place] [address] Platelet mean volume (Bld) [Entitic vol] 10.0 fL Normal 8.7-12.3 [facility] Comment on above: Performed By: #### H EMOGC ####[facility] (DEFAULT)[address] [place] [address] Platelets (Bld) [#/Vol] 170 10*3/uL Normal 146-337 [facility] Comment on above: Performed By: #### H [facility] ####[facility] (DEFAULT)[address] [place] [address] RBC (Bld) [#/Vol] 4.14 10*6/uL Low 4.38-5.83 [facility] Comment on above: Performed By: #### H EMO ####[facility] (DEFAULT)[address] [place] [address] RBC Distribution 13.5 % Normal 10.9-14.3 [facility] Comment on above: Performed By: #### H [facility] ####[facility] (DEFAULT)[address] [place] [address] WBC (Bld) [#/Vol] 4.24 10*3/uL Normal 3.73-10.10 [facility] Comment on above: Performed By: #### H [facility] ####[facility] (DEFAULT)[address] [place] [address] CHEM 7 (LYTES,BUN,CREA,GLUC) on 09-05-2023 Anion gap [Moles/Vol] 12 mmol/L Normal 7-17 [facility] Comment on above: Performed By: #### M NATHANIEL BLOOM, HFP ####[facility] (DEFAULT)[address] [place] [address] Anion gap [Moles/Vol] 12 mmol/L 7 - 17 mmol/L [facility] Chloride [Moles/Vol] 107 mmol/L Normal 98-108 [facility] Comment on above: Performed By: #### M NATHANIEL BLOOM, HFP ####[facility] (DEFAULT)[address] [place] [address] Chloride [Moles/Vol] 107 mmol/L 98 - 10 8 mmol/L [facility] CO2 [Moles/Vol] 20 mmol/L Low 21-31 [facility] Comment on above: Performed By: #### NATHANIEL RAMÍREZ, HFP ####[facility] (DEFAULT)[address] [place] [address] CO2 [Moles/Vol] 20 mmol/L Low 21 - 31 mmol/L [facility] Creatinine [Mass/Vol] 1.43 mg/dL High 0.70-1.30 [facility] Comment on above: Performed By: #### NATHANIEL RAMÍREZ, HFP ####[facility] (DEFAULT)[address] [place] [address] Creatinine [Mass/Vol] 1.43 mg/dL High 0.70 - 1.30 mg/dL [facility] eGFR, CKD-EPI, Male 60 Low - PINF [facility] GFR/1.73 sq M.predicted among non-blacks MDRD (S/P/Bld) [Vol rate/Area] 59 mL/min/{1.73_m2} Low >=60 [facility] Comment on above: Result Comment: Repo rted eGFR is based on the CKD-EPI 2020 equation using creatinine, age, and sex. Performed By: #### NATHANIEL RAMÍREZ, HFP ####[facility] (DEFAULT)[address] [place] [address] Glucose [Mass/Vol] 111 mg/dL High 70-99 [facility] Comment on above: Performed By: #### NATHANIEL RAMÍREZ, HFP ####[facility] (DEFAULT)[address] [place] [address] Glucose [Mass/Vol] 111 mg/dL High 70 - 99 mg/dL [facility] Osmolality [Osmolality] 286 mosm/kg Normal 278-305 [facility] Comment on above: Performed By: #### NATHANIEL RAMÍREZ, HFP ####[facility] (DEFAULT)[address] [place] [address] Osmolality Calc [Osmolality] 286 [facility] Potassium [Moles/Vol] 4.2 mmol/L Normal 3.5-5.0 [facility] Comment on above: Performed By: #### NATHANIEL RAMÍREZ, HFP ####[facility] (DEFAULT)[address] [place] [address] Potassium [Moles/Vol] 4.2 mmol/L 3.5 - 5.0 mmol/L [facility] Sodium [Moles/Vol] 135 mmol/L Normal 135-145 [facility] Comment on above: Performed By: #### NATHANIEL RAMÍREZ, HFP ####[facility] (DEFAULT)[address] [facility] [place] [address] Sodium [Moles/Vol] 135 mmol/L 135 - 145 mmol/L [facility] Urea nitrogen [Mass/Vol] 18 mg/dL Normal 7-25 [facility] Comment on above: Performed By: #### NATHANIEL RAMÍREZ, HFP ####[facility] (DEFAULT)[address] [facility] [place] [address] Urea nitrogen [Mass/Vol] 18 mg/dL 7 - 25 mg/dL [facility] Urea nitrogen/Creatinine [Mass ratio] 13 mg/mg Normal [facility] Comment on above: Performed By: #### NATHANIEL RAMÍREZ, HFP ####[facility] (DEFAULT)[address] [place] [address] Urea nitrogen/Creatinine [Mass ratio] 13 mg/mg [facility] HEPATIC FUNCTION PANELon Albumin [Mass/Vol] 2.8 g/dL Low 3.5-5.0 [facility] Comment on above: Performed By: #### NATHANIEL RAMÍREZ, HFP ####[facility] (DEFAULT)[address] [place] [address] Albumin [Mass/Vol] 2.8 g/dL Low 3.5 - 5.0 g/dL [facility] ALP [Catalytic activity/Vol] 103 U/L Normal 32-126 [facility] Comment on above: Performed By: #### NATHANIEL RAMÍREZ, HFP ####[facility] (DEFAULT)[address] [place] [address] ALP [Catalytic activity/Vol] 103 U/L 32 - 126 U/L [facility] ALT [Catalytic activity/Vol] 26 U/L Normal 10-52 [facility] Comment on above: Performed By: #### NATHANIEL RAMÍREZ, HFP ####[facility] (DEFAULT)[address] [place] [address] ALT [Catalytic activity/Vol] 26 U/L 10 - 52 U/L [facility] AST [Catalytic activity/Vol] 38 U/L Normal 10-39 [facility] Comment on above: Performed By: #### NATHANIEL RAMÍREZ, HFP ####[facility] (DEFAULT)[address] [place] [address] AST [Catalytic activity/Vol] 38 U/L 10 - 39 U/L [facility] Bilirubin [Mass/Vol] 0.9 mg/dL Normal <1.5 [facility] Comment on above: Performed By: #### NATHANIEL RAMÍREZ, HFP ####[facility] (DEFAULT)[address] [place] [address] Bilirubin [Mass/Vol] 0.9 mg/dL [facility] mg/dL [facility] Bilirubin.direct [Mass/Vol] 0.1 mg/dL NINF - 0.3 mg/dL [facility] Bilirubin.indirect [Mass/Vol] 0.1 mg/dL Normal <0.3 [facility] Comment on above: Performed By: #### NATHANIEL RAMÍREZ, HFP ####[facility] (DEFAULT)[address] [place] [address] Protein [Mass/Vol] 6.1 g/dL Low 6.4-8.3 [facility] Comment on above: Performed By: #### M NATHANIEL BLOOM, HFP ####[facility] (DEFAULT)[address] [place] [address] Protein [Mass/Vol] 6.1 g/dL Low 6.4 - 8.3 g/dL [facility] HISTOPLASMA ANTIGEN, FLUIDon 09-05-2023 FH SOURCE BAL RML [facility] Histo FLD interpretation Negative [facility] Histoplasma Antigen, FLUID Not detected ng/mL [facility] HISTOPLASMA CAPSULATUM/BLAST OMYCES SPECIES,PCR FLUIDon 09-05-2023 HISTO/BLASTO RESULT Negative Not Applicable [facility] Specimen source Nom (Unsp spec) BAL RML [facility] IMMUNOPHENOTYPING, TISSUE/FL UIDon 09-05-2023 BKR DX CODE Use Ordering [facility] Flow Interpretation See Comment [facility] Flow Interpreted by: Yossi Perla MD, PhD [facility] MAGNESIUMon 09-05-2023 Interpretation and review of laboratory results Normal [facility] Magnesium [Mass/Vol] 1.7 mg/dL Normal 1.6-2.6 [facility] Comment on above: Performed By: #### M NATHANIEL BLOOM, HFP ####[facility] (DEFAULT)[address] [place] [address] Magnesium [Mass/Vol] 1.7 mg/dL 1.6 - 2 .6 mg/dL [facility] No Panel Informationon 09-05 Interpretation and review of laboratory results Abnormal [facility] TACROLIMUS LEVEL, TROUGH (NE E DRUG LEVEL)Ordered By: Raymundo Mehta on 09-05-2023 Interpretation and review of laboratory results Normal [facility] Tacrolimus (Bld) [Mass/Vol] 5.3 ng/mL [facility] TACROLIMUS LEVEL, TROUGH (NE E DRUG LEVEL)on 09-05-2023 Tacrolimus, Trough 5.3 ng/mL Normal Bone Susana ow Transplant: 4.0-12.0, Therapeutic: 5.0-15.0 [facility] Comment on above: Order Comment: Pleas e draw at specified interval PRIOR to dose. Do not hold dose to wait for level. Specimens batched twice per day, (M-F) and once per day weekendsMethod performed is a chemiluminescent microparticle immunoasssay on the [employer] i2000.The range is based on experience at [facility] and users should be aware that target concentrations vary widely depending on concomitant therapy, time post-transplant, and desired degree of immunosuppression. Performed By: #### T ACRO ####[facility] (DEFAULT)[address] [place] [address] ARTERIAL BLOOD GAS (FULL GOSS EL)on 09-04-2023 Base Excess -1.2 mmol/L Normal -3.0-3.0 [facility] Comment on above: Performed By: #### G YASMINE ####[facility] (DEFAULT)[address] [place] [address] Base excess Calc (Bld) [Moles/Vol] -1.2000 mmol/L -3.0 - 3.0 mmol/L [facility] Calcium.ionized (Bld) [Mass/Vol] 4.79 mg/dL 4.60 - 5.30 mg/dL [facility] Carboxyhemoglobin 0.7 % Normal <=1.5 [facility] Comment on above: Performed By: #### G ASAASHISH ####[facility] (DEFAULT)[address] [place] [address] Carboxyhemoglobin (Bld) [Mass fraction] 0.7 % NINF - 1.5 % [facility] CO2 (Bld) [Partial pressure] 30 mm[Hg] Low [facility] Glucose [Mass/Vol] 159 mg/dL High 70-99 [facility] Comment on above: Performed By: #### Vale UNDERWOOD ####[facility] (DEFAULT)[address] [place] [address] HCO3 (Bld) [Moles/Vol] 22 mmol/L Normal 22-28 [facility] Comment on above: Performed By: #### Vale UNDERWOOD ####[facility] (DEFAULT)[address] [facility] [place] [address] Hematocrit (Bld) [Volume fraction] 38.0 % Low 40.2-50.4 [facility] Comment on above: Performed By: #### Vale UNDERWOOD ####[facility] (DEFAULT)[address] [facility] [place] [address] Hemoglobin (Bld) [Mass/Vol] 12.6 g/dL Low 13.4-16.8 [facility] Comment on above: Performed By: #### Vale UNDERWOOD ####[facility] (DEFAULT)[address] [place] [address] Ionized Calcium, Whole Blood 4.79 mg/dL Normal 4.60-5.30 [facility] Comment on above: Performed By: #### Vale UNDERWOOD ####[facility] (DEFAULT)[address] [place] [address] Lactate [Moles/Vol] 2.0 mmol/L High 0.5 - 1. 6 mmol/L [facility] Lactate, Whole Blood 2.0 mmol/L High 0.5-1.6 [facility] Comment on above: Performed By: #### Vale UNDERWOOD ####[facility] (DEFAULT)[address] [facility] [place] [address] Methemoglobin 0.0 % Normal <=1.5 [facility] Comment on above: Performed By: #### Vale UNDERWOOD ####[facility] (DEFAULT)[address] [place] [address] Methemoglobin (Bld) [Mass fraction] 0.0 % NINF - 1.5 % [facility] Oxygen (Bld) [Partial pressure] 62 mm[Hg] Low [facility] Oxygen saturation in Blood 92 % Low 94 - 98 % [facility] Oxyhemoglobin 91 % Low 94-98 [facility] Comment on above: Performed By: #### Vale UNDERWOOD ####[facility] (DEFAULT)[address] [place] [address] pCO2 30 mm Hg Low 32-48 [facility] Comment on above: Performed By: #### Vale UNDERWOOD ####[facility] (DEFAULT)[address] [place] [address] pH (Bld) 7.48 [pH] High 7.35-7.45 [facility] Comment on above: Performed By: #### Vale UNDERWOOD ####[facility] (DEFAULT)[address] [place] [address], [place] [address] pO2 62 mm Hg Low 83-108 [facility] Comment on above: Performed By: #### Vale UNDERWOOD ####[facility] (DEFAULT)[address] [place] [address] Potassium [Moles/Vol] 4.2 mmol/L Normal 3.5-5.0 [facility] Comment on above: Performed By: #### Vale UNDERWOOD ####[facility] (DEFAULT)[address] [place] [address], [place] [address] sO2 92 % Low 94-98 [facility] Comment on above: Performed By: #### Vale UNDERWOOD ####[facility] (DEFAULT)[address] [place] [address] Sodium [Moles/Vol] 130 mmol/L Low 135-145 [facility] Comment on above: Performed By: #### Vale UNDERWOOD ####[facility] (DEFAULT)[address] [place] [address] Specimen source Nom (Unsp spec) Arterial [facility] Specimen type Nom (Spec) Arterial Normal [facility] Comment on above: Performed By: #### G ASALL ####[facility] (DEFAULT)[address] [place] [address] Bacteria identified Respirat ory culture Nom (Unsp spec)on 09-04-2023 Bacteria identified Cx Nom (Unsp spec) NO GROWTH DAY 2 OF 2 [facility] Microscopic observation Other stain Nom (Unsp spec) [facility] Microscopic observation Other stain Nom (Unsp spec) Neutrophils, Rare [facility] Microscopic observation Other stain Nom (Unsp spec) Red Blood Cells Present [facility] Microscopic observation Other stain Nom (Unsp spec) No organisms seen [facility] Bacteria identified Respirat ory culture Nom (Unsp spec)Ordered By: Jose Salgado on 09-04-2023 Microscopic observation Other stain Nom (Unsp spec) Neutrophils, Moderate [facility] CBC,PLATELETSon 09-04-2023 Erythrocyte distribution width (RBC) [Ratio] 13.2 % 10.9 - 14.3 % [facility] Hematocrit (Bld) [Volume fraction] 38.7 % Low 39.6-48.8 [facility] Comment on above: Performed By: #### H EMOGC ####[facility] (DEFAULT)[address] [place] [address] Hemoglobin (Bld) [Mass/Vol] 12.3 g/dL Low 13.4-16.8 [facility] Comment on above: Performed By: #### H EMOGC ####[facility] (DEFAULT)[address] [place] [address] MCH (RBC) [Entitic mass] 27.9 pg 26.1 - 33.3 pg [facility] MCHC (RBC) [Mass/Vol] 31.8 g/dL Low 31.9 - 36.5 g/dL [facility] MCV (RBC) [Entitic vol] 87.8 fL Normal 79.0-94.5 [facility] Comment on above: Performed By: #### H EMOGC ####[facility] (DEFAULT)[address] [place] [address] Mean Cell Hgb 27.9 pg Normal 26.1-33.3 [facility] Comment on above: Performed By: #### H EMOGC ####[facility] (DEFAULT)[address] [place] [address] Mean Cell Hgb Conc 31.8 g/dL Low 31.9-36.5 [facility] Comment on above: Performed By: #### H EMOGC ####[facility] (DEFAULT)[address] [facility] [place] [address] Platelet mean volume (Bld) [Entitic vol] 9.8 fL Normal 8.7-12.3 [facility] Comment on above: Performed By: #### H EMOGC ####[facility] (DEFAULT)[address] [facility] [place] [address] Platelets (Bld) [#/Vol] 173 10*3/uL Normal 146-337 [facility] Comment on above: Performed By: #### H EMOGC ####[facility] (DEFAULT)[address] [facility] [place] [address] RBC (Bld) [#/Vol] 4.41 10*6/uL Normal 4.38-5.83 [facility] Comment on above: Performed By: #### H EMOGC ####[facility] (DEFAULT)[address] [facility] [place] [address] RBC Distribution 13.2 % Normal 10.9-14.3 [facility] Comment on above: Performed By: #### H EMOGC ####[facility] (DEFAULT)[address] [facility] [place] [address] WBC (Bld) [#/Vol] 4.57 10*3/uL Normal 3.73-10.10 [facility] Comment on above: Performed By: #### H EMOGC ####[facility] (DEFAULT)[address] [place] [address] CHEM 7 (LYTES,BUN,CREA,GLUC) on 09-04-2023 Anion gap [Moles/Vol] 16 mmol/L Normal 7-17 [facility] Comment on above: Performed By: #### NATHANIEL RAMÍREZ, HFP ####[facility] (DEFAULT)[address] [facility] [place] [address] Chloride [Moles/Vol] 104 mmol/L Normal 98-108 [facility] Comment on above: Performed By: #### NATHANIEL RAMÍREZ, HFP ####[facility] (DEFAULT)[address] [place] [address] CO2 [Moles/Vol] 18 mmol/L Low 21-31 [facility] Comment on above: Performed By: #### NATHANIEL RAMÍREZ, HFP ####[facility] (DEFAULT)[address] [place] [address] Creatinine [Mass/Vol] 1.22 mg/dL Normal 0.70-1.30 [facility] Comment on above: Performed By: #### NATHANIEL RAMÍREZ, HFP ####[facility] (DEFAULT)[address] [place] [address] eGFR, CKD-EPI, Male 72 - PINF [facility] GFR/1.73 sq M.predicted among non-blacks MDRD (S/P/Bld) [Vol rate/Area] 71 mL/min/{1.73_m2} Normal >=60 [facility] Comment on above: Result Comment: Repo rted eGFR is based on the CKD-EPI 2020 equation using creatinine, age, and sex. Performed By: #### NATHANIEL RAMÍREZ, HFP ####[facility] (DEFAULT)[address] [place] [address] Glucose [Mass/Vol] 124 mg/dL High 70-99 [facility] Comment on above: Performed By: #### NATHANIEL RAMÍREZ, HFP ####[facility] (DEFAULT)[address] [place] [address] Osmolality [Osmolality] 284 mosm/kg Normal 278-305 [facility] Comment on above: Performed By: #### NATHANIEL RAMÍREZ, HFP ####[facility] (DEFAULT)[address] [place] [address] Osmolality Calc [Osmolality] 284 [facility] Potassium [Moles/Vol] 3.9 mmol/L Normal 3.5-5.0 [facility] Comment on above: Performed By: #### NATHANIEL RAMÍREZ, HFP ####[facility] (DEFAULT)[address] [place] [address] Sodium [Moles/Vol] 134 mmol/L Low 135-145 [facility] Comment on above: Performed By: #### NATHANIEL RAMÍREZ, HFP ####[facility] (DEFAULT)[address] [place] [address] Urea nitrogen [Mass/Vol] 15 mg/dL Normal 7-25 [facility] Comment on above: Performed By: #### NATHANIEL RAMÍREZ, HFP ####[facility] (DEFAULT)[address] [place] [address] Urea nitrogen/Creatinine [Mass ratio] 12 mg/mg Normal [facility] Comment on above: Performed By: #### NATHANIEL RAMÍREZ, HFP ####[facility] (DEFAULT)[address] [place] [address] CMV PCR,FLUIDS,URINE,EYE ETC on 09-04-2023 Specimen source Nom (Unsp spec) BAL LLL [facility] Specimen source Nom (Unsp spec) BAL L [facility] HEPATIC FUNCTION PANELon Albumin [Mass/Vol] 3.0 g/dL Low 3.5-5.0 [facility] Comment on above: Performed By: #### NATHANIEL RAÍMREZ, HFP ####[facility] (DEFAULT)[address] [place] [address] ALP [Catalytic activity/Vol] 112 U/L Normal 32-126 [facility] Comment on above: Performed By: #### NATHANIEL RAMÍREZ, HFP ####[facility] (DEFAULT)[address] [place] [address] ALT [Catalytic activity/Vol] 22 U/L Normal 10-52 [facility] Comment on above: Performed By: #### NATHANIEL RAMÍREZ, HFP ####[facility] (DEFAULT)[address] [place] [address] AST [Catalytic activity/Vol] 30 U/L Normal 10-39 [facility] Comment on above: Performed By: #### NATHANIEL RAMÍREZ, HFP ####[facility] (DEFAULT)[address] [place] [address] Bilirubin [Mass/Vol] 1.2 mg/dL Normal <1.5 [facility] Comment on above: Performed By: #### NATHANIEL RAMÍREZ, HFP ####[facility] (DEFAULT)[address] [place] [address] Bilirubin.direct [Mass/Vol] 0.4 mg/dL High NINF - 0.3 mg/dL [facility] Bilirubin.indirect [Mass/Vol] 0.4 mg/dL High <0.3 [facility] Comment on above: Performed By: #### NATHANIEL RAMÍREZ, HFP ####[facility] (DEFAULT)[address] [place] [address] Protein [Mass/Vol] 6.4 g/dL Normal 6.4-8.3 [facility] Comment on above: Performed By: #### NATHANIEL RAMÍREZ, HFP ####[facility] (DEFAULT)[address] [place] [address] LEGIONELLA PCRon 09-04-2023 Legionella sp rRNA Probe Ql (Unsp spec) Negative Not Applicable [facility] Specimen source Nom (Unsp spec) BAL RML [facility] - Microbiology an d Antimicrobial susceptibilityon 09-04-2023 CMV DNA ESTELITA+probe Ql (Unsp spec) Negative Negative [facility] MAGNESIUMon 09-04-2023 Magnesium [Mass/Vol] 1.4 mg/dL Low 1.6-2.6 [facility] Comment on above: Performed By: #### M , CHM7, [facility] ####[facility] (DEFAULT)[address] [place] [address] No Panel Informationon 09-04 Annotation comment [Interpretation] Narrative DNR [facility] Interpretation and review of laboratory results Abnormal [facility] Interpretation and review of laboratory results Abnormal [facility] PN Report Status DNR [facility] Pneumocystis jiroveci,PCR result Negative Not Applicable [facility] PNEUMOCYSTIS JIROVECI,PCRon 09-04-2023 Specimen source Nom (Unsp spec) BAL LLL [facility] Specimen source Nom (Unsp spec) BAL RML [facility] Portable XR Chest Viewson Radiology Study observation (narrative) [facility] RADIOLOGY RADIOLOGY [facility] Portable XR Chest ViewsOrder ed By: Joanie Nugent on 09-04-2023 [facility] Work Phone: TACROLIMUS LEVEL, TROUGH (NE E DRUG LEVEL)on 09-04-2023 Tacrolimus (Bld) [Mass/Vol] 3.6 ng/mL Low [facility] Tacrolimus, Trough 3.6 ng/mL Low Bone Susana ow Transplant: 4.0-12.0, Therapeutic: 5.0-15.0 [facility] Comment on above: Order Comment: Pleas e draw at specified interval PRIOR to dose. Do not hold dose to wait for level. Specimens batched twice per day, (M-F) and once per day weekendsMethod performed is a chemiluminescent microparticle immunoasssay on the [employer] i2000.The range is based on experience at [facility] and users should be aware that target concentrations vary widely depending on concomitant therapy, time post-transplant, and desired degree of immunosuppression. Performed By: #### T ACRO ####[facility] (DEFAULT)[address] [place] [id number] [place] [address] XR CHEST PORTABLEon 09-04-20 23 XR CHEST PORTABLE Normal [facility] BAL CONSULTon 09-03-2023 ALVEOLAR MACROPHAGES 33 % [facility] Bal comments Correlation with microbiology stains and cultures is recommended. Correlation with viral studies is recommended. [facility] BKR BAL INTERPRETATION Cellular specimen comprised of alveolar macrophages and small lymphocytes. No definitive microorganisms are observed. Rare degenerating cells with changes suggestive of viral cytopathic effect are noted. Moderate degenerative changes. [facility] Lymphocytes/100 WBC (Bld) 49 % [facility] Neutrophils/100 WBC Manual cnt (Bronch spec) 18 % [facility] BAL CONSULTOrdered By: Noa Peralta on 09-03-2023 ALVEOLAR MACROPHAGES 32 % [facility] Work Phone: Bal comments Correlation with microbiology stains and cultures is recommended. [facility] Work Phone: BKR BAL INTERPRETATION Cellular specimen comprised of alveolar macrophages and small lymphocytes. No definitive microorganisms are observed. Moderate degenerative changes. [facility] Work Phone: Lymphocytes/100 WBC (Bld) 57 % [facility] Work Phone: Neutrophils/100 WBC Manual cnt (Bronch spec) 11 % [facility] Work Phone: BRONCHOSCOPYon 09-03-2023 LAB, [facility] CBC,PLATELETSon 09-03-2023 Erythrocyte distribution width (RBC) [Ratio] 13.4 % 10.9 - 14.3 % [facility] Hematocrit (Bld) [Volume fraction] 39.6 % Normal 39.6-48.8 [facility] Comment on above: Performed By: #### H EMOGC ####[facility] (DEFAULT)[address] [facility] [place] [address] Hemoglobin (Bld) [Mass/Vol] 12.8 g/dL Low 13.4-16.8 [facility] Comment on above: Performed By: #### H EMOGC ####[facility] (DEFAULT)[address] [place] [address] MCH (RBC) [Entitic mass] 27.8 pg 26.1 - 33.3 pg [facility] MCHC (RBC) [Mass/Vol] 32.3 g/dL 31.9 - 36.5 g/dL [facility] MCV (RBC) [Entitic vol] 85.9 fL Normal 79.0-94.5 [facility] Comment on above: Performed By: #### H EMO ####[facility] (DEFAULT)[address] [place] [address] Mean Cell Hgb 27.8 pg Normal 26.1-33.3 [facility] Comment on above: Performed By: #### H EMOGC ####[facility] (DEFAULT)[address] [place] [address] Mean Cell Hgb Conc 32.3 g/dL Normal 31.9-36.5 [facility] Comment on above: Performed By: #### H EMOGC ####[facility] (DEFAULT)[address] [place] [address] Platelet mean volume (Bld) [Entitic vol] 9.4 fL Normal 8.7-12.3 [facility] Comment on above: Performed By: #### H EMOGC ####[facility] (DEFAULT)[address] [facility] [place] [address] Platelets (Bld) [#/Vol] 222 10*3/uL Normal 146-337 [facility] Comment on above: Performed By: #### H EMO ####[facility] (DEFAULT)[address] [place] [address] RBC (Bld) [#/Vol] 4.61 10*6/uL Normal 4.38-5.83 [facility] Comment on above: Performed By: #### H EMO ####[facility] (DEFAULT)[address] [facility] [place] [address] RBC Distribution 13.4 % Normal 10.9-14.3 [facility] Comment on above: Performed By: #### H [facility] ####[facility] (DEFAULT)[address] [place] [address] WBC (Bld) [#/Vol] 4.36 10*3/uL Normal 3.73-10.10 [facility] Comment on above: Performed By: #### H [facility] ####[facility] (DEFAULT)[address] [place] [address] CHEM 7 (LYTES,BUN,CREA,GLUC) on 09-03-2023 Anion gap [Moles/Vol] 12 mmol/L Normal 7-17 [facility] Comment on above: Performed By: #### M NATHANIEL BLOOM, HFP ####[facility] (DEFAULT)[address] [place] [address] Anion gap [Moles/Vol] 12 mmol/L 7 - 17 mmol/L [facility] Chloride [Moles/Vol] 104 mmol/L Normal 98-108 [facility] Comment on above: Performed By: #### M NATHANIEL BLOOM, HFP ####[facility] (DEFAULT)[address] [place] [address] Chloride [Moles/Vol] 104 mmol/L 98 - 10 8 mmol/L [facility] CO2 [Moles/Vol] 24 mmol/L Normal 21-31 [facility] Comment on above: Performed By: #### M NATHANIEL BLOOM, HFP ####[facility] (DEFAULT)[address] [place] [address] CO2 [Moles/Vol] 24 mmol/L 21 - 31 mmol/L [facility] Creatinine [Mass/Vol] 1.20 mg/dL Normal 0.70-1.30 [facility] Comment on above: Performed By: #### NATHANIEL RAMÍREZ, HFP ####[facility] (DEFAULT)[address] [place] [address] Creatinine [Mass/Vol] 1.20 mg/dL 0.70 - 1.30 mg/dL [facility] eGFR, CKD-EPI, Male 74 - PINF [facility] GFR/1.73 sq M.predicted among non-blacks MDRD (S/P/Bld) [Vol rate/Area] 73 mL/min/{1.73_m2} Normal >=60 [facility] Comment on above: Result Comment: Repo rted eGFR is based on the CKD-EPI 2020 equation using creatinine, age, and sex. Performed By: #### NATHANIEL RAMÍREZ, HFP ####[facility] (DEFAULT)[address] [place] [address], [place] [address] Glucose [Mass/Vol] 112 mg/dL High 70-99 [facility] Comment on above: Performed By: #### NATHANIEL RAMÍREZ, HFP ####[facility] (DEFAULT)[address] [place] [address] Glucose [Mass/Vol] 112 mg/dL High 70 - 99 mg/dL [facility] Osmolality [Osmolality] 288 mosm/kg Normal 278-305 [facility] Comment on above: Performed By: #### NATHANIEL RAMÍREZ, HFP ####[facility] (DEFAULT)[address] [place] [address] Osmolality Calc [Osmolality] 288 [facility] Potassium [Moles/Vol] 4.1 mmol/L Normal 3.5-5.0 [facility] Comment on above: Performed By: #### NATHANIEL RAMÍREZ, HFP ####[facility] (DEFAULT)[address] [place] [address] Potassium [Moles/Vol] 4.1 mmol/L 3.5 - 5.0 mmol/L [facility] Sodium [Moles/Vol] 136 mmol/L Normal 135-145 [facility] Comment on above: Performed By: #### NATHANIEL RAMÍREZ, HFP ####[facility] (DEFAULT)[address] [place] [address] Sodium [Moles/Vol] 136 mmol/L 135 - 145 mmol/L [facility] Urea nitrogen [Mass/Vol] 17 mg/dL Normal 7-25 [facility] Comment on above: Performed By: #### NATHANIEL RAMÍREZ, HFP ####[facility] (DEFAULT)[address] [place] [address] Urea nitrogen [Mass/Vol] 17 mg/dL 7 - 25 mg/dL [facility] Urea nitrogen/Creatinine [Mass ratio] 14 mg/mg Normal [facility] Comment on above: Performed By: #### NATHANIEL RAMÍREZ, HFP ####[facility] (DEFAULT)[address] [place] [address] Urea nitrogen/Creatinine [Mass ratio] 14 mg/mg [facility] CYTOLOGY, NON-GYNOrdered By: Sherice Jimenez on 09-03-2023 CYTOLOGIC DIAGNOSIS x5lcbTVnSDKunMFjKUIdS9bvowJ nOSIhiVDhK5NgcureMEniKY9jMQ 3nyBemjNLbjTKmISCbVeBwn7pmq 422jQEll7gdKMHYigcfxMa7a0dr NEYUyP4vg2e7vJ30DILekZ7zaMZ kSSybbeAcUZlgciDqjiXyUsc1IA B9eVhsPmupfMT6jPAckQK8NXiaz 3EoaOhofBlmMPZ8AJQzHtcdYKsh pIL5fUCmuDfmqPUeQM2ze9ttfJN 1adDjXCE6dPzucAH7cWzxhpxso4 fkgIW6gCD7MZjkaYV7YHzyEzHoU 6kkKFPscL2mD62tP0hmHIPvxMor CJbhIPVspSW4AUL3VEJiw9cjNQC pfNOxlASbFeTkLUjaGed1b2zzRF WnpX64qQVnfmQ1tTaxHAgniIM8J M68CEfwo0AfHUTssGsxUDByiF9t YzIzXGxldmVsbmZjbjIzXGxldmV hteEtCEcsefCqg1NicfSwzYZ9GV bxfnPcgEC5oDfmWXMhD9S8S463E WzksfXbhwWdLeBiirs9ERQekJdt bGlzdGxldmVsXGxldmVsbmZjMjN bmSK7NDppJgZfZxEveDH6JLdtMv XaqXA3JSkehKRbaHV4GTuaeBB1B Nv1JGq0KWfjNGraCyc5lKxrgBN3 RIkyeN5nJNUwV63lOwP6p9hapUV 4sDD2QAnkrUB1KEitVxCwS1qrIL EbuS3bJ77eW1lnDOEquEtrPHkxL ANxsBA9NYA4FUNut4yvAISwdUDp gOKqUmBeGMylQfw3o5kfXPLzeS7 5tHXilnH4iIdlHU64QMzev5ZpHI SwcXsvUWLucC5iWqWsOTnzwyQmz mZjbjIzXGxldmVsamMwXGxldmVs p2EfibMfwLV5DKvzrgQzmOA7eEx jTWKnF7O0J325AWhqwoImzrRhJs Blprt3CMOvzUmjzZktgNogpyMoC FivnxYymfBzOmGtbYR3VPfePmQw ShSjlVK9JZukHcNiuVX7OPbjbKO upRI5RTsmyNM0PDq7WKs4UTuzSG nyIkq3hKrqzSX5BGhyfI3rHKCfY 86tVgJ4e1ntaSM7oJO9TKdwaMS3 TSbrMxZjI8jkCQFioY2hU25zZ8d hMGHkiWspIKjlKDWcqOS3IAB6JD Ltx1fyPWRygDZubMJiXdPmTCdrD sf1u1yrVGOxnF00zSPzuxF0vQdk AQ36KCoii6EdGWWvwMhbGRYkkV5 mYzIzXGxldmVsbmZjbjIzXGxldm GbhrUaBZyaiaFnj7ImjxKvzJO5U XztebVkbGE1gLryGRYwI3W8L144 AFvsvuLvhiZwKjTlsyw5EKBjkBb cbGlzdGxldmVsXGxldmVsbmZjMj AhiPQ2EWpyGvSkRlEvwIA9AXaoB xWuoLY1MZjbdCSeuYZ1INxqwQM5 XSg4EIp2ICecKIigGsh0pMuklMI 8JVwmzJ9nWOUzV30mCkJ3rP38WD gseHxulF04KXVttMPvgCFxnJC2B PjetVadnB42ABVjhUAlDZxtg9Gz MZZfToX3SCF5LMXsiZfabY16OPB anOCqH462piYsWCrqRQ52ZIJvtF KqyxGoHwZeSDNwkKLuiWH2QPIdT K1vjhfqOJdsHLoxILZwmcY2ZFHa yDGkR2YtHVCpBB8phxgeHRH5BLu qKNKpYZZ3YfKaMVKsi5Zpsse4Ft OovAd5m2teNWJvBAJstXvco8itQ CV4GYQohVDgN3evaK3hNJPlEL4n tmznx5qdOGbcOKtaZDCbhVH8srI 0IOEucZImU9HhxR7wNGCkAWSdim LmqMqftE2eNwycykHfJJRnIFGIJ aMFZp5IN1bJDKlSDD6ZMYWfWHMQ DKiGCMKNTGAYRBfTL5GCTNkBBgI pGXHrXDNxQ8kUL2aOO2beBgtzWe CaMTtkWWBuFsErA7DnOJNzubruH ILpAXXXTE0DHOFJSEUDGb7WXEG4 ESWvxxkafWW0QCiepiSgoRq3nKW otYfjdS3sMnlozyKoZDYeJTTMcd DEJAxhM40xuyVsL1ApzWMkDMIeI NhkSF55dFMqPBQlbGWxEIo2mO1f BHpthIpsytIVqCRpfX2nuokcVCl jZjBccGFyXGxpMFxsczBccGFyfQ == [facility] Work Phone: Case Report [facility] Work Phone: Clinical History n2muqHBfASYrgVMdSMOa A4zfsqB gGHWypKRxO4PrtaimYZvdBV9aHT 4fnQmqsKUmmGOoVZCiRjQuz0olz 491wZTnj2hbHKJRadocjNe6uUlj I77zs4H8BsmcJ4vjTGEjLHioRMN zYOtvuGBcAAu6AZDvmMMggqAsQa PlTGElwOUmmSX8KWAqUJ9thjxaM UdpMOgkATXslgG0VOIsuGPjJ1Gy RQYaLP9gvuuvGJD2EUtiFARbZAE 0MmOyDCKpg6Yvbqt0CwHdkTm7d1 byLJUiRXOhyOetb1pqQPO1MTRmh THqU5ltjQ6pMAYaFI4qtojca6zj BTnrHKaqKPEopIH5cnC8HWWcfDW vS9LxqS0cTUKfVRZmooIroBxdiB 5cZnMyMFxjZjEgUmVuYWwgdHJhb vCrqIWfiF2iVRCycg0= [facility] Work Phone: For Immediate Release to Patient's MyChart? Yes Yes [facility] Work Phone: Gross Description s6ktnMIyNJUyfCPhDYPf L4oierP hLHRtfMHrJ2AiukpeAFxpZO3lHU 0nyBgjdRPdnEDnKHOvSlTsr9kbq 300oXSry1zaCCXBareuoXb7qClk X71ap4E7SuhjV31vaWGmRCS3HHH wOOHorXNfFVHxDDQ7VLRczLYaL6 veVOChCK0pcwhuVWvwPShbAXDhk JN7QTJiuYDbK1SqOIIjNWcdWLFl kxy9CbPmOu0reHGrzIitICsxZFI kXHBsYWluXGZzMjAgTExMIEJBTF yoUOCaEHUysZEeIMx4YWYzdT4fe CMchfJkgGTxeU2ckUevVRegYJBr MXLYXKTvhAcvSBJFTUIdn8YaeM5 ccGFyXHBhcmRccGFyXHBhcn0= [facility] Work Phone: HEPATIC FUNCTION PANELon Albumin [Mass/Vol] 3.2 g/dL Low 3.5-5.0 [facility] Comment on above: Performed By: #### NATHANIEL RAMÍREZ, HFP ####[facility] (DEFAULT)[address] [place] [address] Albumin [Mass/Vol] 3.2 g/dL Low 3.5 - 5.0 g/dL [facility] ALP [Catalytic activity/Vol] 118 U/L Normal 32-126 [facility] Comment on above: Performed By: #### M HELEN BLOOMM7, HFP ####[facility] (DEFAULT)[address] [place] [address] ALP [Catalytic activity/Vol] 118 U/L 32 - 126 U/L [facility] ALT [Catalytic activity/Vol] 25 U/L Normal 10-52 [facility] Comment on above: Performed By: #### M MERLE CHM7, HFP ####[facility] (DEFAULT)[address] [place] [address] ALT [Catalytic activity/Vol] 25 U/L 10 - 52 U/L [facility] AST [Catalytic activity/Vol] 32 U/L Normal 10-39 [facility] Comment on above: Performed By: #### M HELEN BLOOMM7, HFP ####[facility] (DEFAULT)[address] [place] [address] AST [Catalytic activity/Vol] 32 U/L 10 - 39 U/L [facility] Bilirubin [Mass/Vol] 1.0 mg/dL Normal <1.5 [facility] Comment on above: Performed By: #### M MERLE CHM7, HFP ####[facility] (DEFAULT)[address] [facility] [place] [address] Bilirubin [Mass/Vol] 1.0 mg/dL NINF - 1.5 mg/dL [facility] Bilirubin.direct [Mass/Vol] 0.3 mg/dL High NINF - 0.3 mg/dL [facility] Bilirubin.indirect [Mass/Vol] 0.3 mg/dL High <0.3 [facility] Comment on above: Performed By: #### M MERLE CHM7, HFP ####[facility] (DEFAULT)[address] [place] [address] Protein [Mass/Vol] 6.5 g/dL Normal 6.4-8.3 [facility] Comment on above: Performed By: #### M , M7, [facility] ####[facility] (DEFAULT)[address] [place] [address] Protein [Mass/Vol] 6.5 g/dL 6.4 - 8.3 g/dL [facility] HISTOPLASMA AND BLASTOMYCES ANTIGEN, ENZYME IMMUNOASSAY, SERMon 09-03-2023 Histoplasma/Blastomy antonia Ag Result Detected Critically abnormal Not Detected [facility] Histoplasma/Blastomy antonia Ag Value 5.3 ng/mL [facility] Interpretation and review of laboratory results Abnormal [facility] IMMUNOPHENOTYPING, TISSUE/FL UIDon 09-03-2023 BKR DX CODE Use Ordering Normal [facility] Comment on above: Order Comment: Pleas e lab add on to specimen collected yesterdayIMMUNOPHENOTYPING DIAGNOSISPATIENT NAME: GEORGE SLATER: 1970MRN: [id number]#: [id number] BY: Yossi Perla M.D,, Ph.D. [id number] TYPE: Bronchial Alveolar LavageLABORATORY INTERPRETATION:There is no [...] performance characteristicsdetermined The Flow Cytometry Laboratory at [facility]. It has notbeen cleared or approved by the FDA. This laboratory is certifiedunder the Clinical Laboratory Improvement Amendments (CLIA)as qualified to perform high complexity clinical laboratorytesting. This test is used for clinical purposes. It should notbe regarded as investigational or for research.[facility] Flow Cytometry Laboratory lower limitof CLL MRD detection is 0.1% of the gated lymphocytes. Performed By: #### G IPP ####[facility] (DEFAULT)[address] [place] [address] Flow Interpretation See Comment Normal [facility] Comment on above: Order Comment: Dilan gregory lab add on to specimen collected yesterdayIMMUNOPHENOTYPING DIAGNOSISPATIENT NAME: GEORGE SLATER: 1970MRN: [id number]#: [id number] BY: Yossi Perla M.D,, Ph.D. [id number] TYPE: Bronchial Alveolar LavageLABORATORY INTERPRETATION:There is no [...] performance characteristicsdetermined The Flow Cytometry Laboratory at [facility]. It has notbeen cleared or approved by the FDA. This laboratory is certifiedunder the Clinical Laboratory Improvement Amendments (CLIA)as qualified to perform high complexity clinical laboratorytesting. This test is used for clinical purposes. It should notbe regarded as investigational or for research.[facility] Flow Cytometry Laboratory lower limitof CLL MRD detection is 0.1% of the gated lymphocytes. Performed By: #### G IPP ####[facility] ([place] [address] Flow Interpreted by: Yossi Perla MD, PhD [facility] Comment on above: Order Comment: Plejoan jyoti lab add on to specimen collected yesterdayIMMUNOPHENOTYPING DIAGNOSISPATIENT NAME: GEORGE SLATER: 1970MRN: [id number]#: [id number] BY: Yossi Perla M.D,, Ph.D. [id number] TYPE: Bronchial Alveolar LavageLABORATORY INTERPRETATION:There is no [...] performance characteristicsdetermined The Flow Cytometry Laboratory at [facility]. It has notbeen cleared or approved by the FDA. This laboratory is certifiedunder the Clinical Laboratory Improvement Amendments (CLIA)as qualified to perform high complexity clinical laboratorytesting. This test is used for clinical purposes. It should notbe regarded as investigational or for research.[facility] Flow Cytometry Laboratory lower limitof CLL MRD detection is 0.1% of the gated lymphocytes. Performed By: #### G IPP ####[facility] (DEFAULT)[address] [place] [address] Laboratory - Hematology and Cell countsOrdered By: Leonardo Peralta on 09-03-2023 Eosinophils Patterson stain Ql (Unsp spec) 0 % [facility] Work Phone: Laboratory - Microbiology an d Antimicrobial susceptibilityon 09-03-2023 Galactomannan Ag IA Qn (Unsp spec) <0.500 NINF [facility] Laboratory - PathologyOrdere d By: Leonardo Peralta on 09-03-2023 Pathologist review Jame (Unsp spec) [Interp] Leonardo Peralta MD [facility] Work Phone: MAGNESIUMon 09-03-2023 Interpretation and review of laboratory results Normal [facility] Magnesium [Mass/Vol] 1.6 mg/dL Normal 1.6-2.6 [facility] Comment on above: Performed By: #### M , CHM7, HFP ####[facility] (DEFAULT)[address] [place] [address] Magnesium [Mass/Vol] 1.6 mg/dL 1.6 - 2 .6 mg/dL [facility] No Panel InformationOrdered By: Leonardo Peralta on 09-03-2023 Bal Diff Quik Stain Quality Check Acceptable [facility] Work Phone: BKR DX CODE Use Ordering [facility] Work Phone: [facility] Work Phone: No Panel Informationon 09-03 Interpretation and review of laboratory results Abnormal [facility] No Panel InformationOrdered By: Sherice Jimenez on 09-03-2023 [facility] Work Phone: PARVOVIRUS (B19) DNA, PCR, B LOODon 09-03-2023 PARVOVIRUS B19 BY RAPID PCR Not detected Not Detected [facility] NE SPEC SOURCE Whole Blood [facility] Portable XR Chest Viewson Radiology Study observation (narrative) [facility] RADIOLOGY RADIOLOGY [facility] Portable XR Chest ViewsOrder ed By: [place] on 09-03-2023 [facility] Work Phone: XR CHEST PORTABLEon 10-05-20 23 XR CHEST PORTABLE Normal [facility] ACID FAST CULTUREon 09-02-20 23 Bacteria identified Cx Nom (Unsp spec) NO GROWTH DAY 42 OF 42 Normal [facility] Comment on above: Performed By: #### A FB ####[facility] (DEFAULT)[address] [place] [address] Order Comment: BAL A FB culture. Clinical suspicion for non-tuberculous mycobacteria Fluorochrome Stain No acid Fast Bacillus Seen Normal [facility] Comment on above: Performed By: #### A FB ####[facility] (DEFAULT)[address] [place] [address] Order Comment: BAL A FB culture. Clinical suspicion for non-tuberculous mycobacteria ASPERGILLUS (GALACTOMANNAN), ANTIGENon 09-02-2023 Galactomannan Ag IA Qn <0.500 NINF [facility] ASPERGILLUS ANTIGEN, BALon 1 Aspergillus Galactomannan Antigen, BAL <0.500 Normal <0.5 [facility] Comment on above: Result Comment: ---- ADDITIONAL INFORMATION This is a qualitative test and the resulted index value isnot indicative of disease severity. Serial testing isrecommended for patients at high risk for invasiveaspergillosis.This assay was performed using the FDA-cleared [employer]at[employer] Aspergillus Galactomannan EIA.Test Performed by:[facility] [place] [id number] Director: Rosendo Bose M.D. Ph.D.; CLIA# [id number] Performed By: #### X ASGFL ####[facility] (DEFAULT)[address] [place] [address] Order Comment: BAL a spirgillus antigen ATYPICAL BACTERIAL PNEUMONIA ,PCROrdered By: Shari Contreras on 09-02-2023 B. parapertussis DNA ESTELITA+probe Ql (Unsp spec) Not detected Not Detected [facility] B. pertussis DNA ESTELITA+probe Ql (Unsp spec) Not detected Not Detected [facility] C. pneumoniae DNA ESTELITA+probe Ql (Unsp spec) Not detected Not Detected [facility] Interpretation and review of laboratory results Normal [facility] M. pneumoniae DNA ESTELITA+probe Ql (Unsp spec) Not detected Not Detected [facility] ATYPICAL BACTERIAL PNEUMONIA ,PCRon 09-02-2023 Bordetella Parapertussis Not detected Normal Not Detected [facility] Comment on above: Order [...] by The Clinical Microbiology Laboratory at [facility]. It has not been cleared or approved by the FDA. The laboratory is required under CLIA as qualified to perform high-complexity testing. This test is used for clinical purposes. It should not be regarded as investigational or for research. Performed By: #### A TYPNE ####[facility] (DEFAULT)[address] [place] [address] Bordetella Pertussis Not detected Normal Not Detected [facility] Comment on above: Order [...] by The Clinical Microbiology Laboratory at [facility]. It has not been cleared or approved by the FDA. The laboratory is required under CLIA as qualified to perform high-complexity testing. This test is used for clinical purposes. It should not be regarded as investigational or for research. Performed By: #### A TYPNE ####[facility] (DEFAULT)[address] [place] [address] Chlamydia Pneumoniae Not detected Normal Not Detected [facility] Comment on above: Order [...] by The Clinical Microbiology Laboratory at [facility]. It has not been cleared or approved by the FDA. The laboratory is required under CLIA as qualified to perform high-complexity testing. This test is used for clinical purposes. It should not be regarded as investigational or for research. Performed By: #### A TYPNE ####[facility] (DEFAULT)[address] [place] [address] Mycoplasma Pneumoniae Not detected Normal Not Detected [facility] Comment on above: Order [...] by The Clinical Microbiology Laboratory at [facility]. It has not been cleared or approved by the FDA. The laboratory is required under CLIA as qualified to perform high-complexity testing. This test is used for clinical purposes. It should not be regarded as investigational or for research. Performed By: #### A TYPNE ####[facility] (DEFAULT)[address] [place] [address] BAL CONSULTon 09-02-2023 ALVEOLAR MACROPHAGES 32 % Normal [facility] Comment on above: Order Comment: BAL c onsult for cell differential and pathologist review. Please do flow cytometry if > 12% lymphocytes Performed By: #### B ALC ####[facility] (DEFAULT)[address] [place] [address] ALVEOLAR MACROPHAGES 33 % Normal [facility] Comment on above: Order Comment: BAL c onsultIf > 15% lymphocytes - please send for flow. Performed By: #### B ALC ####[facility] (DEFAULT)[address] [place] [address] Bal comments Correlation with microbiology stains and cultures is recommended. Normal [facility] Comment on above: Order Comment: BAL c onsult for cell differential and pathologist review. Please do flow cytometry if > 12% lymphocytes Performed By: #### B ALC ####[facility] (DEFAULT)[address] [place] [address] Bal comments Correlation with microbiology stains and cultures is recommended. Correlation with viral studies is recommended. Normal [facility] Comment on above: Order Comment: BAL c onsultIf > 15% lymphocytes - please send for flow. Performed By: #### B ALC ####[facility] (DEFAULT)[address] [place] [address] Bal Diff Quik Stain Quality Check Acceptable Normal [facility] Comment on above: Order Comment: BAL c onsultIf > 15% lymphocytes - please send for flow. Performed By: #### B ALC ####[facility] (DEFAULT)[address] [place] [address] Order Comment: BAL c onsult for cell differential and pathologist review. Please do flow cytometry if > 12% lymphocytes Bal Reviewed By: Leonardo Peralta MD [facility] Comment on above: Order Comment: BAL c onsultIf > 15% lymphocytes - please send for flow. Performed By: #### B ALC ####[facility] (DEFAULT)[address] [place] [address] Order Comment: BAL c onsult for cell differential and pathologist review. Please do flow cytometry if > 12% lymphocytes BKR BAL INTERPRETATION Cellular specimen comprised of alveolar macrophages and small lymphocytes. No definitive microorganisms are observed. Moderate degenerative changes. Normal [facility] Comment on above: Order Comment: BAL c onsult for cell differential and pathologist review. Please do flow cytometry if > 12% lymphocytes Performed By: #### B ALC ####[facility] (DEFAULT)[address] [place] [address] BKR BAL INTERPRETATION Cellular specimen comprised of alveolar macrophages and small lymphocytes. No definitive microorganisms are observed. Rare degenerating cells with changes suggestive of viral cytopathic effect are noted. Moderate degenerative changes. Normal [facility] Comment on above: Order Comment: BAL c onsultIf > 15% lymphocytes - please send for flow. Performed By: #### B ALC ####[facility] (DEFAULT)[address] [place] [address] BKR DX CODE Use Ordering Normal [facility] Comment on above: Order Comment: BAL c onsultIf > 15% lymphocytes - please send for flow. Performed By: #### B ALC ####[facility] (DEFAULT)[address] [place] [address], [place] [address] Order Comment: BAL c onsult for cell differential and pathologist review. Please do flow cytometry if > 12% lymphocytes Eosinophils/100 WBC (Bld) 0 % Normal [facility] Comment on above: Order Comment: BAL c onsultIf > 15% lymphocytes - please send for flow. Performed By: #### B ALC ####[facility] (DEFAULT)[address] [place] [address], [place] [address] Order Comment: BAL c onsult for cell differential and pathologist review. Please do flow cytometry if > 12% lymphocytes Lymphocytes/100 WBC (Bld) 57 % Normal [facility] Comment on above: Order Comment: BAL c onsult for cell differential and pathologist review. Please do flow cytometry if > 12% lymphocytes Performed By: #### B ALC ####[facility] (DEFAULT)[address] [place] [address], [place] [address] Lymphocytes/100 WBC (Bld) 49 % Normal [facility] Comment on above: Order Comment: BAL c onsultIf > 15% lymphocytes - please send for flow. Performed By: #### B ALC ####[facility] (DEFAULT)[address] [place] [address], [place] [address] Neutrophils/100 WBC (Bld) 11 % Normal [facility] Comment on above: Order Comment: BAL c onsult for cell differential and pathologist review. Please do flow cytometry if > 12% lymphocytes Performed By: #### B ALC ####[facility] (DEFAULT)[address] [place] [address] Neutrophils/100 WBC (Bld) 18 % Normal [facility] Comment on above: Order Comment: BAL c onsultIf > 15% lymphocytes - please send for flow. Performed By: #### B ALC ####[facility] (DEFAULT)[address] [place] [address] BRONCHOSCOPYon 09-02-2023 Radiology Study observation (narrative) [facility] Bacteria identified Cx Nom ( Bld)on 09-02-2023 Bacteria identified Cx Nom (Unsp spec) NO GROWTH DAY 5 OF 5 [facility] CBC,PLATELETSon 09-02-2023 Erythrocyte distribution width (RBC) [Ratio] 13.2 % 10.9 - 14.3 % [facility] Hematocrit (Bld) [Volume fraction] 39.9 % Normal 39.6-48.8 [facility] Comment on above: Performed By: #### H [facility] ####[facility] (DEFAULT)[address] [place] [address] Hemoglobin (Bld) [Mass/Vol] 12.9 g/dL Low 13.4-16.8 [facility] Comment on above: Performed By: #### H EMOGC ####[facility] (DEFAULT)[address] [place] [address] MCH (RBC) [Entitic mass] 27.9 pg 26.1 - 33.3 pg [facility] MCHC (RBC) [Mass/Vol] 32.3 g/dL 31.9 - 36.5 g/dL [facility] MCV (RBC) [Entitic vol] 86.4 fL Normal 79.0-94.5 [facility] Comment on above: Performed By: #### H EMOGC ####[facility] (DEFAULT)[address] [place] [address] Mean Cell Hgb 27.9 pg Normal 26.1-33.3 [facility] Comment on above: Performed By: #### H EMOGC ####[facility] (DEFAULT)[address] [facility] [place] [address] Mean Cell Hgb Conc 32.3 g/dL Normal 31.9-36.5 [facility] Comment on above: Performed By: #### H EMOGC ####[facility] (DEFAULT)[address] [facility] [place] [address] Platelet mean volume (Bld) [Entitic vol] 9.5 fL Normal 8.7-12.3 [facility] Comment on above: Performed By: #### H EMOGC ####[facility] (DEFAULT)[address] [facility] [place] [address] Platelets (Bld) [#/Vol] 210 10*3/uL Normal 146-337 [facility] Comment on above: Performed By: #### H EMOGC ####[facility] (DEFAULT)[address] [facility] [place] [address] RBC (Bld) [#/Vol] 4.62 10*6/uL Normal 4.38-5.83 [facility] Comment on above: Performed By: #### H EMOGC ####[facility] (DEFAULT)[address] [facility] [place] [address] RBC Distribution 13.2 % Normal 10.9-14.3 [facility] Comment on above: Performed By: #### H EMOGC ####[facility] (DEFAULT)[address] [place] [address] WBC (Bld) [#/Vol] 4.12 10*3/uL Normal 3.73-10.10 [facility] Comment on above: Performed By: #### H EMOGC ####[facility] (DEFAULT)[address] [facility] [place] [address] CHEM 7 (LYTES,BUN,CREA,GLUC) on 09-02-2023 Anion gap [Moles/Vol] 13 mmol/L Normal 7-17 [facility] Comment on above: Performed By: #### NATHANIEL RAMÍREZ, HFP ####[facility] (DEFAULT)[address] [facility] [place] [address] Chloride [Moles/Vol] 105 mmol/L Normal 98-108 [facility] Comment on above: Performed By: #### NATHANIEL RAMÍREZ, HFP ####[facility] (DEFAULT)[address] [place] [address] CO2 [Moles/Vol] 22 mmol/L Normal 21-31 [facility] Comment on above: Performed By: #### NATHANIEL RAMÍREZ, HFP ####[facility] (DEFAULT)[address] [place] [address] Creatinine [Mass/Vol] 1.25 mg/dL Normal 0.70-1.30 [facility] Comment on above: Performed By: #### NATHANIEL RAMÍREZ, HFP ####[facility] (DEFAULT)[address] [facility] [place] [address] eGFR, CKD-EPI, Male 70 - PINF [facility] GFR/1.73 sq M.predicted among non-blacks MDRD (S/P/Bld) [Vol rate/Area] 69 mL/min/{1.73_m2} Normal >=60 [facility] Comment on above: Result Comment: Repo rted eGFR is based on the CKD-EPI 2020 equation using creatinine, age, and sex. Performed By: #### NATHANIEL RAMÍREZ, HFP ####[facility] (DEFAULT)[address] [facility] [place] [address] Glucose [Mass/Vol] 105 mg/dL High 70-99 [facility] Comment on above: Performed By: #### NATHANIEL RAMÍREZ, HFP ####[facility] (DEFAULT)[address] [place] [address] Osmolality [Osmolality] 287 mosm/kg Normal 278-305 [facility] Comment on above: Performed By: #### NATHANIEL RAMÍREZ, HFP ####[facility] (DEFAULT)[address] [place] [address] Osmolality Calc [Osmolality] 287 [facility] Potassium [Moles/Vol] 4.3 mmol/L Normal 3.5-5.0 [facility] Comment on above: Performed By: #### NATHANIEL RAMÍREZ, HFP ####[facility] (DEFAULT)[address] [place] [address] Sodium [Moles/Vol] 136 mmol/L Normal 135-145 [facility] Comment on above: Performed By: #### NATHANIEL RAMÍREZ, HFP ####[facility] (DEFAULT)[address] [place] [address] Urea nitrogen [Mass/Vol] 16 mg/dL Normal 7-25 [facility] Comment on above: Performed By: #### NATHANIEL RAMÍREZ, HFP ####[facility] (DEFAULT)[address] [place] [address] Urea nitrogen/Creatinine [Mass ratio] 13 mg/mg Normal [facility] Comment on above: Performed By: #### NATHANIEL RAMÍREZ, HFP ####[facility] (DEFAULT)[address] [place] [address] CMV PCR,FLUIDS,URINE,EYE ETC on 09-02-2023 CMV by PCR Result Negative Normal Negative [facility] Comment on above: Result Comment: ---- ADDITIONAL INFORMATION This test was developed and its performance characteristicsdetermined by [facility] in a manner consistent with CLIArequirements. This test has not been cleared or approved bythe U.S. Food and Drug Administration.Test Performed by:[address] [address]Kqr Director: Rosendo Bose M.D. Ph.D.; CLIA# [id number] Performed By: #### Y CMV ####[facility] (DEFAULT)[address] [place] [address] CMV BY PCR SOURCE BAL LLL Normal [facility] Comment on above: Performed By: #### Y CMV ####[facility] (DEFAULT)[address] [place] [address] CMV BY PCR SOURCE BAL RML Normal [facility] Comment on above: Performed By: #### Y CMV ####[facility] (DEFAULT)[address] [place] [address] CYTOLOGY, NON-GYNon 09-02-20 CYTOLOGIC DIAGNOSIS Normal [facility] Comment on above: Result Comment: A. B RONCHOALVEOLAR LAVAGE, LEFT LOWER LOBE (CYTOLOGY):FINAL DIAGNOSIS:No Malignant Cells Are IdentifiedHypocellular Specimen Performed By: #### N ONGNNONFNA ####[facility] (DEFAULT)[address] [place] [address] Case Report Normal [facility] Comment on above: Result Comment: [facility] Cytology Report Case: [id number] Provider: Crow Diaz MD Collected: 09/02/2023 08:38 AMOrdering Location: 0W Received: 09/02/2023 10:44 AMPathologist: KENTON Caglepecimen: BRONCHOALVEOLAR LAVAGE, LLL BAL Performed By: #### N ONGNNONFNA ####[facility] (DEFAULT)[address] [place] [address] Clinical History Renal transplant. Normal [facility] Comment on above: Performed By: #### N ONGNNONFNA ####[facility] (DEFAULT)[address] [place] [address] Gross Description Normal [facility] Comment on above: Result Comment: LLL BAL1 ml hazy colorless fld unfixed1 TP slide Pap stainFor Immediate Release to Patient's MyChart? Yes Performed By: #### N ONGNNONFNA ####[facility] (DEFAULT)[address] [place] [address] FUNGUS CULTUREon 09-02-2023 Bacteria identified Cx Nom (Unsp spec) NO GROWTH DAY 28 OF 28 Normal [facility] Comment on above: Order Comment: BAL f ungal culture Performed By: #### F UN ####[facility] (DEFAULT)[address] [place] [address] Bacteria identified Cx Nom (Unsp spec) Normal [facility] Comment on above: Order Comment: Ident ification was performed on the MALDI-TOF mass spectrometer [employer]. This test was developed by [facility]. It has not been cleared or approved by the FDA. The laboratory is regulated under CLIA as qualified to perform high-complexity testing. This test is used for clinical purposes. It should not be regarded as investigational or for research. Result Comment: Grow go221Hxq [place] Histoplasma capsulatum Performed By: #### F UN ####[facility] (DEFAULT)[address] [place] [address] HEPATIC FUNCTION PANELon Albumin [Mass/Vol] 3.2 g/dL Low 3.5-5.0 [facility] Comment on above: Performed By: #### M NATHANIEL BLOOM, HFP ####[facility] (DEFAULT)[address] [place] [address] ALP [Catalytic activity/Vol] 107 U/L Normal 32-126 [facility] Comment on above: Performed By: #### M NATHANIEL BLOOM, HFP ####[facility] (DEFAULT)[address] [place] [address] ALT [Catalytic activity/Vol] 20 U/L Normal 10-52 [facility] Comment on above: Performed By: #### M NATHANIEL BLOOM, HFP ####[facility] (DEFAULT)[address] [place] [address] AST [Catalytic activity/Vol] 31 U/L Normal 10-39 [facility] Comment on above: Performed By: #### NATHANIEL RAMÍREZ, HFP ####[facility] (DEFAULT)[address] [place] [address] Bilirubin [Mass/Vol] 1.0 mg/dL Normal <1.5 [facility] Comment on above: Performed By: #### NATHANIEL RAMÍREZ, HFP ####[facility] (DEFAULT)[address] [place] [address] Bilirubin.direct [Mass/Vol] 0.3 mg/dL High NINF - 0.3 mg/dL [facility] Bilirubin.indirect [Mass/Vol] 0.3 mg/dL High <0.3 [facility] Comment on above: Performed By: #### NATHANIEL RAMÍREZ, HFP ####[facility] (DEFAULT)[address] [place] [address] Protein [Mass/Vol] 6.6 g/dL Normal 6.4-8.3 [facility] Comment on above: Performed By: #### NATHANIEL RAMÍREZ, HFP ####[facility] (DEFAULT)[address] [place] [address] HISTOPLASMA ANTIGEN, FLUIDon 09-02-2023 FH SOURCE BAL RML Normal [facility] Comment on above: Performed By: #### Y FHST ####[facility] (DEFAULT)[address] [place] [address] Histo FLD interpretation Negative Normal [facility] Comment on above: Result Comment: ---- ADDITIONAL INFORMATION Reference interval: None DetectedReportable Range: Positive Results reported in ng/mL from0.20 ng/mL to 20.00 ng/mLPositive Results above 20.00 ng/mL are reported as 'Abovethe Limit of Quantification'Cross-reactions occur with Blastomyces spp., Coccidioidesspp., and Paracoccidioides brasiliensis.This test was developed and its performance characteristicsdetermined by [facility]. It has not beencleared or approved by the FDA; however, FDA clearance orapproval is not currently required for clinical use. Theresults are not intended to be used as the sole means forclinical diagnosis or patient management decisions.Test Performed by:[facility] [facility] [place] [address] Performed By: #### Y FHST ####[facility] (DEFAULT)[address] [place] [address] Histoplasma Antigen, FLUID Not detected Normal [facility] Comment on above: Performed By: #### Y FHST ####[facility] (DEFAULT)[address] [place] [address] HISTOPLASMA ANTIGEN,URINEon 09-02-2023 H. capsulatum Ag (U) [Mass/Vol] Not detected ng/mL [facility] H. capsulatum Ag IA Ql (U) Not detected Not Detected [facility] HISTOPLASMA CAPSULATUM/BLAST OMYCES SPECIES,PCR FLUIDon 09-02-2023 HISTO/BLASTO RESULT Negative Normal Not Applicable [facility] Comment on above: Result Comment: A Ne gative result from BAL fluid does not rule out thepresence of Histoplasma capsulatum because the sensitivity from this source is suboptimal. ADDITIONAL INFORMATION This test was developed and its performance characteristicsdetermined by [facility] in a manner consistent with CLIArequirements. This test has not been cleared or approved bythe U.S. Food and Drug Administration.Test Performed by:[address] [address]Iax Director: Rosendo Bose M.D. Ph.D.; CLIA# [id number] Performed By: #### Y HBRP ####[facility] (DEFAULT)[address] [place] [address] Source BAL RML Normal [facility] Comment on above: Performed By: #### Y HBRP ####[facility] (DEFAULT)[address] [place] [address], [place] [address] HIV 1 AND 2 ANTIBODIES/P24 A NTIGENOrdered By: Wilma Luque on 09-02-2023 HIV 1+2 Ab+HIV1 p24 Ag IA Ql Non-Reactive Non Reactive [facility] HIV 1 AND 2 ANTIBODIES/P24 A NTIGENon 09-02-2023 HIV-1/HIV-2 Ab With p24 Antigen Non-Reactive Normal Non Reactive [facility] Comment on above: Performed By: #### L LLLFET82 ####[facility] (DEFAULT)[address] [place] [address], [place] [address] LEGIONELLA CULTUREon 023 Bacteria identified Cx Nom (Unsp spec) NO GROWTH DAY 7 OF 7 Normal [facility] Comment on above: Performed By: #### L EGN ####[facility] (DEFAULT)[address] [place] [address] Order Comment: BAL l egionella culture LEGIONELLA PCRon 09-02-2023 Legionella species, Culture BAL RML Normal [facility] Comment on above: Performed By: #### Y LEGRP ####[facility] (DEFAULT)[address] [place] [address] Legionella, pcr result Negative Normal Not Applicable [facility] Comment on above: Result Comment: ---- ADDITIONAL INFORMATION This test was developed and its performance characteristicsdetermined by [facility] in a manner consistent with CLIArequirements. This test has not been cleared or approved bythe U.S. Food and Drug Administration.Test Performed by:[address] [address]Tfm Director: Rosendo Bose M.D. Ph.D.; CLIA# [id number] Performed By: #### Y LEGRP ####[facility] (DEFAULT)[address] [place] [address] LOWER RESPIRATORY CULTURE, B ACTERIALon 09-02-2023 Bacteria identified Cx Nom (Unsp spec) NO GROWTH DAY 2 OF 2 Normal [facility] Comment on above: Performed By: #### R ES ####[facility] (DEFAULT)[address] [place] [address] Order Comment: BAL b acterial respiratory culture Microscopic observation Gram stain Nom (Unsp spec) Normal [facility] Comment on above: Result Comment: Cyto centrifuge preparationNeutrophils, RareRed Blood Cells PresentNo organisms seen Performed By: #### R ES ####[facility] (DEFAULT)[address] [place] [address] Order Comment: BAL b acterial respiratory culture Result Comment: Cyto centrifuge preparationNeutrophils, ModerateRed Blood Cells PresentNo organisms seen MAGNESIUMon 09-02-2023 Interpretation and review of laboratory results Normal [facility] Magnesium [Mass/Vol] 1.7 mg/dL Normal 1.6-2.6 [facility] Comment on above: Performed By: #### M GO, CHM7, HFP ####[facility] (DEFAULT)[address] [place] [address] No Panel Informationon 09-02 Interpretation and review of laboratory results Abnormal [facility] Interpretation and review of laboratory results Normal [facility] PNEUMOCYSTIS JIROVECI,PCRon 09-02-2023 PN Report Status DNR Normal [facility] Comment on above: Performed By: #### Y PNRP ####[facility] (DEFAULT)[address] [place] [address] PN Specimen Source BAL LLL Normal [facility] Comment on above: Performed By: #### Y PNRP ####[facility] (DEFAULT)[address] [place] [address] PN Specimen Source BAL RML Normal [facility] Comment on above: Performed By: #### Y PNRP ####[facility] (DEFAULT)[address] [place] [address] Pneum jiroveci comment DNR Normal [facility] Comment on above: Performed By: #### Y PNRP ####[facility] (DEFAULT)[address] [place] [address] Pneumocystis jiroveci,PCR result Negative Normal Not Applicable [facility] Comment on above: Result Comment: ---- ADDITIONAL INFORMATION This test was developed and its performance characteristicsdetermined by [facility] in a manner consistent with CLIArequirements. This test has not been cleared or approved bythe U.S. Food and Drug Administration.Test Performed by:[address] [address]Dfd Director: Rosendo Bose M.D. Ph.D.; CLIA# [id number] Performed By: #### Y PNRP ####[facility] (DEFAULT)[address] [place] [address] TACROLIMUS LEVEL, TROUGH (NE E DRUG LEVEL)on 09-02-2023 Tacrolimus (Bld) [Mass/Vol] 4.2 ng/mL [facility] Tacrolimus, Trough 4.2 ng/mL Normal Bone Susana ow Transplant: 4.0-12.0, Therapeutic: 5.0-15.0 [facility] Comment on above: Order Comment: Dilan gregory draw at specified interval PRIOR to dose. Do not hold dose to wait for level. Specimens batched twice per day, (M-F) and once per day weekendsMethod performed is a chemiluminescent microparticle immunoasssay on the [employer] i2000.The range is based on experience at [facility] and users should be aware that target concentrations vary widely depending on concomitant therapy, time post-transplant, and desired degree of immunosuppression. Performed By: #### T ACRO ####[facility] (DEFAULT)[address] [place] [address] [facility] CBC,PLATELETSon 09-01-2023 Erythrocyte distribution width (RBC) [Ratio] 13.4 % 10.9 - 14.3 % [facility] Hematocrit (Bld) [Volume fraction] 38.9 % Low 39.6-48.8 [facility] Comment on above: Performed By: #### H [facility] ####[facility] (DEFAULT)[address] [place] [address] Hemoglobin (Bld) [Mass/Vol] 12.7 g/dL Low 13.4-16.8 [facility] Comment on above: Performed By: #### H [facility] ####[facility] (DEFAULT)[address] [place] [address] MCH (RBC) [Entitic mass] 27.6 pg 26.1 - 33.3 pg [facility] MCHC (RBC) [Mass/Vol] 32.6 g/dL 31.9 - 36.5 g/dL [facility] MCV (RBC) [Entitic vol] 84.6 fL Normal 79.0-94.5 [facility] Comment on above: Performed By: #### H EMOGC ####[facility] (DEFAULT)[address] [place] [address] Mean Cell Hgb 27.6 pg Normal 26.1-33.3 [facility] Comment on above: Performed By: #### H EMOGC ####[facility] (DEFAULT)[address] [facility] [place] [address] Mean Cell Hgb Conc 32.6 g/dL Normal 31.9-36.5 [facility] Comment on above: Performed By: #### H EMOGC ####[facility] (DEFAULT)[address] [facility] [place] [address] Platelet mean volume (Bld) [Entitic vol] 9.4 fL Normal 8.7-12.3 [facility] Comment on above: Performed By: #### H EMOGC ####[facility] (DEFAULT)[address] [place] [address] Platelets (Bld) [#/Vol] 209 10*3/uL Normal 146-337 [facility] Comment on above: Performed By: #### H EMOGC ####[facility] (DEFAULT)[address] [place] [address] RBC (Bld) [#/Vol] 4.60 10*6/uL Normal 4.38-5.83 [facility] Comment on above: Performed By: #### H EMOGC ####[facility] (DEFAULT)[address] [place] [address] RBC Distribution 13.4 % Normal 10.9-14.3 [facility] Comment on above: Performed By: #### H EMOGC ####[facility] (DEFAULT)[address] [place] [address] WBC (Bld) [#/Vol] 4.41 10*3/uL Normal 3.73-10.10 [facility] Comment on above: Performed By: #### H EMOGC ####[facility] (DEFAULT)[address] [place] [address] CHEM 7 (LYTES,BUN,CREA,GLUC) on 09-01-2023 Anion gap [Moles/Vol] 14 mmol/L Normal 7-17 [facility] Comment on above: Performed By: #### M GO, CHM7, HFP ####[facility] (DEFAULT)[address] [place] [address], [place] [address] Chloride [Moles/Vol] 103 mmol/L Normal 98-108 [facility] Comment on above: Performed By: #### NATHANIEL RAMÍREZ, HFP ####[facility] (DEFAULT)[address] [place] [address], [place] [address] CO2 [Moles/Vol] 21 mmol/L Normal 21-31 [facility] Comment on above: Performed By: #### NATHANIEL RAMÍREZ, HFP ####[facility] (DEFAULT)[address] [place] [address] Creatinine [Mass/Vol] 1.16 mg/dL Normal 0.70-1.30 [facility] Comment on above: Performed By: #### NATHANIEL RAMÍREZ, HFP ####[facility] (DEFAULT)[address] [place] [address] eGFR, CKD-EPI, Male 77 - PINF [facility] GFR/1.73 sq M.predicted among non-blacks MDRD (S/P/Bld) [Vol rate/Area] 76 mL/min/{1.73_m2} Normal >=60 [facility] Comment on above: Result Comment: Repo rted eGFR is based on the CKD-EPI 2020 equation using creatinine, age, and sex. Performed By: #### NATHANIEL RAMÍREZ, HFP ####[facility] (DEFAULT)[address] [place] [address] Glucose [Mass/Vol] 117 mg/dL High 70-99 [facility] Comment on above: Performed By: #### NATHANIEL RAMÍREZ, HFP ####[facility] (DEFAULT)[address] [place] [address] Osmolality [Osmolality] 285 mosm/kg Normal 278-305 [facility] Comment on above: Performed By: #### NATHANIEL RAMÍREZ, HFP ####[facility] (DEFAULT)[address] [facility] [place] [address] Osmolality Calc [Osmolality] 285 [facility] Potassium [Moles/Vol] 4.2 mmol/L Normal 3.5-5.0 [facility] Comment on above: Performed By: #### NATHANIEL RAMÍREZ, HFP ####[facility] (DEFAULT)[address] [place] [address] Sodium [Moles/Vol] 134 mmol/L Low 135-145 [facility] Comment on above: Performed By: #### NATHANIEL RAMÍREZ, HFP ####[facility] (DEFAULT)[address] [facility] [place] [address] Urea nitrogen [Mass/Vol] 18 mg/dL Normal 7-25 [facility] Comment on above: Performed By: #### NATHANIEL RAMÍREZ, HFP ####[facility] (DEFAULT)[address] [facility] [place] [address] Urea nitrogen/Creatinine [Mass ratio] 16 mg/mg Normal [facility] Comment on above: Performed By: #### NATHANIEL RAMÍREZ, HFP ####[facility] (DEFAULT)[address] [facility] [place] [address] CRYPTOCOCCAL ANTIGENon 09-01 Cryptococcus Antigen,Serum Negative Normal Negative [facility] Comment on above: Performed By: #### C RAG ####[facility] (DEFAULT)[address] [facility] [place] [address] Cryptococcus sp Ag Ql (S) Negative Negative [facility] HEPATIC FUNCTION PANELon Albumin [Mass/Vol] 3.3 g/dL Low 3.5-5.0 [facility] Comment on above: Performed By: #### NATHANIEL RAMÍREZ, HFP ####[facility] (DEFAULT)[address] [facility] [place] [address] ALP [Catalytic activity/Vol] 112 U/L Normal 32-126 [facility] Comment on above: Performed By: #### M GO, CHM7, HFP ####[facility] (DEFAULT)[address] [place] [address] ALT [Catalytic activity/Vol] 21 U/L Normal 10-52 [facility] Comment on above: Performed By: #### M MERLE CHM7, HFP ####[facility] (DEFAULT)[address] [place] [address] AST [Catalytic activity/Vol] 29 U/L Normal 10-39 [facility] Comment on above: Performed By: #### M MERLE CHM7, HFP ####[facility] (DEFAULT)[address] [place] [address] Bilirubin [Mass/Vol] 1.0 mg/dL Normal <1.5 [facility] Comment on above: Performed By: #### Rod BLOOM CHM7, HFP ####[facility] (DEFAULT)[address] [place] [address] Bilirubin.direct [Mass/Vol] 0.2 mg/dL NINF - 0.3 mg/dL [facility] Bilirubin.indirect [Mass/Vol] 0.2 mg/dL Normal <0.3 [facility] Comment on above: Performed By: #### Rod BLOOM CHM7, HFP ####[facility] (DEFAULT)[address] [place] [address] Protein [Mass/Vol] 6.8 g/dL Normal 6.4-8.3 [facility] Comment on above: Performed By: #### M MERLE CHM7, HFP ####[facility] (DEFAULT)[address] [place] [address] LEGIONELLA URINARY AGOrdered By: Carolin Miles on 09-01-2023 L. pneumophila 1 Ag IA Ql (U) Negative Negative [facility] MAGNESIUMon 09-01-2023 Interpretation and review of laboratory results Normal [facility] Magnesium [Mass/Vol] 1.6 mg/dL Normal 1.6-2.6 [facility] Comment on above: Performed By: #### M , CHM7, [facility] ####[facility] (DEFAULT)[address] [address] No Panel Informationon 09-01 Interpretation and review of laboratory results Abnormal [facility] Interpretation and review of laboratory results Normal [facility] PARVOVIRUS (B19) DNA, PCR, B LOODon 09-01-2023 PARVOVIRUS B19 BY RAPID PCR Not detected Normal Not Detected [facility] Comment on above: Result Comment: The primers/probe used in this assay will detectparvovirus B19 and V9 (genotypes 1 # 3) but maynot detect parvovirus genotype 2. The majority ofcirculating Parvovirus B19 strains in the [facility] are genotype 1. Genotype 2 is not believed tocirculate widely in the [facility], but has beenassociated with similar clinical features as genotype1. Genotype 3 is most prevalent in some [facility].This test was developed and its analyticalperformance characteristics have been determinedby [facility] [place], [place].It has not been cleared or approved by the FDA. Thisassay has been validated pursuant to the CLIAregulations and is used for clinical purposes.Test Performed at:[facility] [address] [id number] Benavides M.D., Ph.D.,Director of Laboratories Performed By: #### Y PRVP ####[facility] (DEFAULT)[address] [address] NE SPEC SOURCE Whole Blood Normal [facility] Comment on above: Performed By: #### Y PRVP ####[facility] (DEFAULT)[address] [address] ASPERGILLUS (GALACTOMANNAN), ANTIGENon 08-31-2023 Aspergillus Antigen <0.500 Normal <0.5 [facility] Comment on above: Result Comment: ---- ADDITIONAL INFORMATION This is a qualitative test and the resulted index value isnot indicative of disease severity. Serial testing isrecommended for patients at high risk for invasiveaspergillosis.This assay was performed using the FDA-cleared [employer] Aspergillus Galactomannan EIA.Test Performed by:[facility] [place], [place] [address]Rai Director: Rosendo Bose M.D. Ph.D.; CLIA# [id number] Performed By: #### Y ASPR ####[facility] (DEFAULT)[address] [place] [address] CBC,PLATELETSon 08-31-2023 Erythrocyte distribution width (RBC) [Ratio] 13.3 % 10.9 - 14.3 % [facility] Hematocrit (Bld) [Volume fraction] 39.4 % Low 39.6-48.8 [facility] Comment on above: Performed By: #### H [facility] ####[facility] (DEFAULT)[address] [place] [address], [place] [address] Hemoglobin (Bld) [Mass/Vol] 12.8 g/dL Low 13.4-16.8 [facility] Comment on above: Performed By: #### H [facility] ####[facility] (DEFAULT)[address] [place] [address] MCH (RBC) [Entitic mass] 27.6 pg 26.1 - 33.3 pg [facility] MCHC (RBC) [Mass/Vol] 32.5 g/dL 31.9 - 36.5 g/dL [facility] MCV (RBC) [Entitic vol] 85.1 fL Normal 79.0-94.5 [facility] Comment on above: Performed By: #### H EMOGC ####[facility] (DEFAULT)[address] [place] [address] Mean Cell Hgb 27.6 pg Normal 26.1-33.3 [facility] Comment on above: Performed By: #### H EMO ####[facility] (DEFAULT)[address] [facility] [place] [address] Mean Cell Hgb Conc 32.5 g/dL Normal 31.9-36.5 [facility] Comment on above: Performed By: #### H EMO ####[facility] (DEFAULT)[address] [facility] [place] [address] Platelet mean volume (Bld) [Entitic vol] 9.6 fL Normal 8.7-12.3 [facility] Comment on above: Performed By: #### H EMO ####[facility] (DEFAULT)[address] [place] [address] Platelets (Bld) [#/Vol] 228 10*3/uL Normal 146-337 [facility] Comment on above: Performed By: #### H EMO ####[facility] (DEFAULT)[address] [place] [address] RBC (Bld) [#/Vol] 4.63 10*6/uL Normal 4.38-5.83 [facility] Comment on above: Performed By: #### H EMO ####[facility] (DEFAULT)[address] [facility] [place] [address] RBC Distribution 13.3 % Normal 10.9-14.3 [facility] Comment on above: Performed By: #### H EMO ####[facility] (DEFAULT)[address] [place] [address] WBC (Bld) [#/Vol] 4.77 10*3/uL Normal 3.73-10.10 [facility] Comment on above: Performed By: #### H EMOGC ####[facility] (DEFAULT)[address] [place] [address] CHEM 7 (LYTES,BUN,CREA,GLUC) on 08-31-2023 Anion gap [Moles/Vol] 13 mmol/L Normal 7-17 [facility] Comment on above: Performed By: #### M GO, CHM7, HFP, FERIB, PROCAL ####[facility] (DEFAULT)[address] [facility] [place] [address] Chloride [Moles/Vol] 102 mmol/L Normal 98-108 [facility] Comment on above: Performed By: #### M GO, CHM7, HFP, FERIB, PROCAL ####[facility] (DEFAULT)[address] [place] [address] CO2 [Moles/Vol] 23 mmol/L Normal 21-31 [facility] Comment on above: Performed By: #### M GO, CHM7, HFP, FERIB, PROCAL ####[facility] (DEFAULT)[address] [place] [address] Creatinine [Mass/Vol] 1.37 mg/dL High 0.70-1.30 [facility] Comment on above: Performed By: #### M GO, CHM7, HFP, FERIB, PROCAL ####[facility] (DEFAULT)[address] [place] [address] eGFR, CKD-EPI, Male 63 - PINF [facility] GFR/1.73 sq M.predicted among non-blacks MDRD (S/P/Bld) [Vol rate/Area] 62 mL/min/{1.73_m2} Normal >=60 [facility] Comment on above: Result Comment: Repo rted eGFR is based on the CKD-EPI 2020 equation using creatinine, age, and sex. Performed By: #### M GO, CHM7, HFP, FERIB, PROCAL ####[facility] (DEFAULT)[address] [place] [address] Glucose [Mass/Vol] 112 mg/dL High 70-99 [facility] Comment on above: Performed By: #### M GO, CHM7, HFP, FERIB, PROCAL ####[facility] (DEFAULT)[address] [place] [address] Osmolality [Osmolality] 284 mosm/kg Normal 278-305 [facility] Comment on above: Performed By: #### M GO, CHM7, HFP, FERIB, PROCAL ####[facility] (DEFAULT)[address] [facility] [place] [address] Osmolality Calc [Osmolality] 284 [facility] Potassium [Moles/Vol] 4.4 mmol/L Normal 3.5-5.0 [facility] Comment on above: Performed By: #### M GO, CHM7, HFP, FERIB, PROCAL ####[facility] (DEFAULT)[address] [facility] [place] [address] Sodium [Moles/Vol] 134 mmol/L Low 135-145 [facility] Comment on above: Performed By: #### Rod GO, CHM7, HFP, FERIB, PROCAL ####[facility] (DEFAULT)[address] [place] [address] Urea nitrogen [Mass/Vol] 16 mg/dL Normal 7-25 [facility] Comment on above: Performed By: #### M GO, CHM7, HFP, FERIB, PROCAL ####[facility] (DEFAULT)[address] [facility] [place] [address] Urea nitrogen/Creatinine [Mass ratio] 12 mg/mg Normal [facility] Comment on above: Performed By: #### M GO, CHM7, HFP, FERIB, PROCAL ####[facility] (DEFAULT)[address] [facility] [place] [address] CT ABDOMEN/PELVIS WITHOUT CO NTRASTon 08-31-2023 CT ABDOMEN/PELVIS WITHOUT CONTRAST Normal [facility] CT Abdomen and Pelvis WO con traston 08-31-2023 RADIOLOGY RADIOLOGY [facility] CT Abdomen and Pelvis WO con trastOrdered By: Chavez Larkin on 08-31-2023 [facility] Work Phone: CT CHEST WITHOUT CONTRASTon 10-02-2023 CT CHEST WITHOUT CONTRAST Normal [facility] CT Chest WO contraston 08-31 RADIOLOGY RADIOLOGY [facility] CT Chest WO contrastOrdered By: Daisha Patterson on 08-31-2023 [facility] Work Phone: FERRITINon 08-31-2023 Ferritin [Mass/Vol] 409.0 ng/mL High 10.5-307.3 [facility] Comment on above: Performed By: #### M GO, CHM7, HFP, FERIB, PROCAL ####[facility] (DEFAULT)[address] [place] [address] Ferritin [Mass/Vol] 409.0 ng/mL High 10.5 - 3 07.3 ng/mL [facility] Interpretation and review of laboratory results Abnormal [facility] HEPATIC FUNCTION PANELon Albumin [Mass/Vol] 3.3 g/dL Low 3.5-5.0 [facility] Comment on above: Performed By: #### M GO, CHM7, HFP, FERIB, PROCAL ####[facility] (DEFAULT)[address] [facility] [place] [address] ALP [Catalytic activity/Vol] 113 U/L Normal 32-126 [facility] Comment on above: Performed By: #### M GO, CHM7, HFP, FERIB, PROCAL ####[facility] (DEFAULT)[address] [facility] [place] [address] ALT [Catalytic activity/Vol] 25 U/L Normal 10-52 [facility] Comment on above: Performed By: #### M GO, CHM7, HFP, FERIB, PROCAL ####[facility] (DEFAULT)[address] [facility] [place] [address] AST [Catalytic activity/Vol] 31 U/L Normal 10-39 [facility] Comment on above: Performed By: #### M GO, CHM7, HFP, FERIB, PROCAL ####[facility] (DEFAULT)[address] [place] [address] Bilirubin [Mass/Vol] 1.1 mg/dL Normal <1.5 [facility] Comment on above: Performed By: #### Rod BLOOM CHMJessica, HFP, FERIB, PROCAL ####[facility] (DEFAULT)[address] [facility] [place] [address] Bilirubin.direct [Mass/Vol] 0.3 mg/dL High NINF - 0.3 mg/dL [facility] Bilirubin.indirect [Mass/Vol] 0.3 mg/dL High <0.3 [facility] Comment on above: Performed By: #### Rod BLOOM CHMJessica, HFP, FERIB, PROCAL ####[facility] (DEFAULT)[address] [place] [address] Protein [Mass/Vol] 7.0 g/dL Normal 6.4-8.3 [facility] Comment on above: Performed By: #### Rod BLOOM CHMJessica, HFP, FERIB, PROCAL ####[facility] (DEFAULT)[address] [place] [address] LEGIONELLA URINARY AGon 10-0 Legionella Urinary Antigen Negative Normal Negative [facility] Comment on above: Performed By: #### L EGION ####[facility] (DEFAULT)[address] [place] [address] MAGNESIUMon 08-31-2023 Interpretation and review of laboratory results Normal [facility] Magnesium [Mass/Vol] 1.7 mg/dL Normal 1.6-2.6 [facility] Comment on above: Performed By: #### Rod BLOOM CHMJessica, HFP, FERIB, PROCAL ####[facility] (DEFAULT)[address] [place] [address] No Panel Informationon 08-31 Interpretation and review of laboratory results Abnormal [facility] Interpretation and review of laboratory results Normal [facility] Radiology Study observation (narrative) [facility] PROCALCITONINon 08-31-2023 Procalcitonin 0.23 ng/mL Normal <0.50 [facility] Comment on above: Result [...] and trend procalcitonin in various clinical settings. [email or web address] [email or web address]=[email or web address] common cutoffs associated with bacterial infections are as follows.Respiratory tract infections: >0.25 ng/mLSepsis/septic shock: >0.5 ng/mLProcalcitonin should not be used alone as a diagnostic tool, however. All procalcitonin results should be interpreted in association with the patients clinical condition and all laboratory findings. Performed By: #### M MERLE, CHRod7, TAVO, CATINA, ANG ####[facility] (DEFAULT)[address] [place] [address] Procalcitonin [Mass/Vol] 0.23 ng/mL NINF - 0.50 ng/mL [facility] TACROLIMUS LEVEL, TROUGH (NE E DRUG LEVEL)Ordered By: Yanira Marcum on 08-31-2023 Tacrolimus (Bld) [Mass/Vol] 5.9 ng/mL [facility] TACROLIMUS LEVEL, TROUGH (NE E DRUG LEVEL)on 08-31-2023 Tacrolimus, Trough 5.9 ng/mL Normal Bone Susana ow Transplant: 4.0-12.0, Therapeutic: 5.0-15.0 [facility] Comment on above: Order Comment: Pleas e draw at specified interval PRIOR to dose. Do not hold dose to wait for level. Specimens batched twice per day, (M-F) and once per day weekendsMethod performed is a chemiluminescent microparticle immunoasssay on the [employer] i2000.The range is based on experience at [facility] and users should be aware that target concentrations vary widely depending on concomitant therapy, time post-transplant, and desired degree of immunosuppression. Performed By: #### T ACRO ####[facility] (DEFAULT)[address] [place] [address] URINE CULTUREOrdered By: Jorge crowe Held on 08-31-2023 Bacteria identified Cx Nom (Unsp spec) No Growth [facility] DARYL AURIS SCREEN BY PCRO rdered By: Mynor Alejandro on 08-30-2023 Daryl auris Screen by PCR Not detected Not Detected [facility] Interpretation and review of laboratory results Normal [facility] CBC,PLATELETSon 08-30-2023 Erythrocyte distribution width (RBC) [Ratio] 13.3 % 10.9 - 14.3 % [facility] Hematocrit (Bld) [Volume fraction] 41.3 % Normal 39.6-48.8 [facility] Comment on above: Performed By: #### H EMOGC ####[facility] (DEFAULT)[address] [place] [address] Hemoglobin (Bld) [Mass/Vol] 13.2 g/dL Low 13.4-16.8 [facility] Comment on above: Performed By: #### H EMOGC ####[facility] (DEFAULT)[address] [place] [address] MCH (RBC) [Entitic mass] 27.3 pg 26.1 - 33.3 pg [facility] MCHC (RBC) [Mass/Vol] 32.0 g/dL 31.9 - 36.5 g/dL [facility] MCV (RBC) [Entitic vol] 85.5 fL Normal 79.0-94.5 [facility] Comment on above: Performed By: #### H EMOGC ####[facility] (DEFAULT)[address] [place] [address] Mean Cell Hgb 27.3 pg Normal 26.1-33.3 [facility] Comment on above: Performed By: #### H EMOGC ####[facility] (DEFAULT)[address] [place] [address] Mean Cell Hgb Conc 32.0 g/dL Normal 31.9-36.5 [facility] Comment on above: Performed By: #### H EMOGC ####[facility] (DEFAULT)[address] [facility] [place] [address] Platelet mean volume (Bld) [Entitic vol] 9.2 fL Normal 8.7-12.3 [facility] Comment on above: Performed By: #### H EMOGC ####[facility] (DEFAULT)[address] [facility] [place] [address] Platelets (Bld) [#/Vol] 235 10*3/uL Normal 146-337 [facility] Comment on above: Performed By: #### H EMOGC ####[facility] (DEFAULT)[address] [facility] [place] [address] RBC (Bld) [#/Vol] 4.83 10*6/uL Normal 4.38-5.83 [facility] Comment on above: Performed By: #### H EMOGC ####[facility] (DEFAULT)[address] [facility] [place] [address] RBC Distribution 13.3 % Normal 10.9-14.3 [facility] Comment on above: Performed By: #### H EMOGC ####[facility] (DEFAULT)[address] [facility] [place] [address] WBC (Bld) [#/Vol] 4.96 10*3/uL Normal 3.73-10.10 [facility] Comment on above: Performed By: #### H EMOGC ####[facility] (DEFAULT)[address] [place] [address] [facility] CHEM 7 (LYTES,BUN,CREA,GLUC) on 08-30-2023 Anion gap [Moles/Vol] 14 mmol/L Normal 7-17 [facility] Comment on above: Performed By: #### NATHANIEL RAMÍREZ, HFP ####[facility] (DEFAULT)[address] [place] [address] Chloride [Moles/Vol] 102 mmol/L Normal 98-108 [facility] Comment on above: Performed By: #### NATHANIEL RAMÍREZ, HFP ####[facility] (DEFAULT)[address] [place] [address] CO2 [Moles/Vol] 20 mmol/L Low 21-31 [facility] Comment on above: Performed By: #### NATHANIEL RAMÍREZ, HFP ####[facility] (DEFAULT)[address] [place] [address] Creatinine [Mass/Vol] 1.56 mg/dL High 0.70-1.30 [facility] Comment on above: Performed By: #### NATHANIEL RAMÍREZ, HFP ####[facility] (DEFAULT)[address] [facility] [place] [address] eGFR, CKD-EPI, Male 54 Low - PINF [facility] GFR/1.73 sq M.predicted among non-blacks MDRD (S/P/Bld) [Vol rate/Area] 53 mL/min/{1.73_m2} Low >=60 [facility] Comment on above: Result Comment: Repo rted eGFR is based on the CKD-EPI 2020 equation using creatinine, age, and sex. Performed By: #### NATHANIEL RAMÍREZ, HFP ####[facility] (DEFAULT)[address] [place] [address] Glucose [Mass/Vol] 123 mg/dL High 70-99 [facility] Comment on above: Performed By: #### NATHANIEL RAMÍREZ, HFP ####[facility] (DEFAULT)[address] [place] [address] Osmolality [Osmolality] 281 mosm/kg Normal 278-305 [facility] Comment on above: Performed By: #### NATHANIEL RAMÍREZ, HFP ####[facility] (DEFAULT)[address] [place] [address] Osmolality Calc [Osmolality] 281 [facility] Potassium [Moles/Vol] 4.3 mmol/L Normal 3.5-5.0 [facility] Comment on above: Performed By: #### NATHANIEL RAMÍREZ, HFP ####[facility] (DEFAULT)[address] [place] [address] Sodium [Moles/Vol] 132 mmol/L Low 135-145 [facility] Comment on above: Performed By: #### NATHANIEL RAMÍREZ, HFP ####[facility] (DEFAULT)[address] [place] [address] Urea nitrogen [Mass/Vol] 16 mg/dL Normal 7-25 [facility] Comment on above: Performed By: #### NATHANIEL RAMÍREZ, HFP ####[facility] (DEFAULT)[address] [place] [address] Urea nitrogen/Creatinine [Mass ratio] 10 mg/mg Normal [facility] Comment on above: Performed By: #### NATHANIEL RAMÍREZ, HFP ####[facility] (DEFAULT)[address] [place] [address] HEPATIC FUNCTION PANELon Albumin [Mass/Vol] 3.7 g/dL Normal 3.5-5.0 [facility] Comment on above: Performed By: #### NATHANIEL RAMÍREZ, HFP ####[facility] (DEFAULT)[address] [place] [address] ALP [Catalytic activity/Vol] 115 U/L Normal 32-126 [facility] Comment on above: Performed By: #### NATHANIEL RAMÍREZ, HFP ####[facility] (DEFAULT)[address] [place] [address] ALT [Catalytic activity/Vol] 22 U/L Normal 10-52 [facility] Comment on above: Performed By: #### NATHANIEL RAMÍREZ, HFP ####[facility] (DEFAULT)[address] [place] [address] AST [Catalytic activity/Vol] 34 U/L Normal 10-39 [facility] Comment on above: Performed By: #### NATHANIEL RAMÍREZ, HFP ####[facility] (DEFAULT)[address] [place] [address] Bilirubin [Mass/Vol] 1.2 mg/dL Normal <1.5 [facility] Comment on above: Performed By: #### NATHANIEL RAMÍREZ, HFP ####[facility] (DEFAULT)[address] [place] [address] Bilirubin.direct [Mass/Vol] 0.3 mg/dL High NINF - 0.3 mg/dL [facility] Bilirubin.indirect [Mass/Vol] 0.3 mg/dL High <0.3 [facility] Comment on above: Performed By: #### NATHANIEL RAMÍREZ, HFP ####[facility] (DEFAULT)[address] [place] [address] Protein [Mass/Vol] 7.7 g/dL Normal 6.4-8.3 [facility] Comment on above: Performed By: #### NATHANIEL RAMÍREZ, HFP ####[facility] (DEFAULT)[address] [place] [address] MAGNESIUMon 08-30-2023 Interpretation and review of laboratory results Normal [facility] Magnesium [Mass/Vol] 1.8 mg/dL Normal 1.6-2.6 [facility] Comment on above: Performed By: #### NATHANIEL RAMÍREZ, HFP ####[facility] (DEFAULT)[address] [place] [address] No Panel Informationon 08-30 Interpretation and review of laboratory results Abnormal [facility] CBC,PLATELETSon 08-29-2023 Erythrocyte distribution width (RBC) [Ratio] 13.4 % 10.9 - 14.3 % [facility] Hematocrit (Bld) [Volume fraction] 37.6 % Low 39.6-48.8 [facility] Comment on above: Performed By: #### H EMO ####[facility] (DEFAULT)[address] [place] [address] Hemoglobin (Bld) [Mass/Vol] 12.2 g/dL Low 13.4-16.8 [facility] Comment on above: Performed By: #### H EMO ####[facility] (DEFAULT)[address] [place] [address] MCH (RBC) [Entitic mass] 27.6 pg 26.1 - 33.3 pg [facility] MCHC (RBC) [Mass/Vol] 32.4 g/dL 31.9 - 36.5 g/dL [facility] MCV (RBC) [Entitic vol] 85.1 fL Normal 79.0-94.5 [facility] Comment on above: Performed By: #### H EMO ####[facility] (DEFAULT)[address] [place] [address] Mean Cell Hgb 27.6 pg Normal 26.1-33.3 [facility] Comment on above: Performed By: #### H EMOGC ####[facility] (DEFAULT)[address] [place] [address] Mean Cell Hgb Conc 32.4 g/dL Normal 31.9-36.5 [facility] Comment on above: Performed By: #### H EMOGC ####[facility] (DEFAULT)[address] [place] [address] Platelet mean volume (Bld) [Entitic vol] 9.4 fL Normal 8.7-12.3 [facility] Comment on above: Performed By: #### H EMO ####[facility] (DEFAULT)[address] [place] [address] Platelets (Bld) [#/Vol] 233 10*3/uL Normal 146-337 [facility] Comment on above: Performed By: #### H EMO ####[facility] (DEFAULT)[address] [place] [address] RBC (Bld) [#/Vol] 4.42 10*6/uL Normal 4.38-5.83 [facility] Comment on above: Performed By: #### H EMO ####[facility] (DEFAULT)[address] [place] [address] RBC Distribution 13.4 % Normal 10.9-14.3 [facility] Comment on above: Performed By: #### H EMO ####[facility] (DEFAULT)[address] [place] [address] WBC (Bld) [#/Vol] 4.92 10*3/uL Normal 3.73-10.10 [facility] Comment on above: Performed By: #### H EMO ####[facility] (DEFAULT)[address] [place] [address] CHEM 7 (LYTES,BUN,CREA,GLUC) on 08-29-2023 Anion gap [Moles/Vol] 13 mmol/L Normal 7-17 [facility] Comment on above: Performed By: #### H FP, GGTB, MGO, CHM7 ####[facility] (DEFAULT)[address] [place] [address] Chloride [Moles/Vol] 105 mmol/L Normal 98-108 [facility] Comment on above: Performed By: #### H FP, GGTB, MGO, CHM7 ####[facility] (DEFAULT)[address] [place] [address] CO2 [Moles/Vol] 20 mmol/L Low 21-31 [facility] Comment on above: Performed By: #### H FP, GGTB, MGO, CHM7 ####[facility] (DEFAULT)[address] [place] [address] Creatinine [Mass/Vol] 1.55 mg/dL High 0.70-1.30 [facility] Comment on above: Performed By: #### H FP, GGTB, MGO, CHM7 ####[facility] (DEFAULT)[address] [place] [address] eGFR, CKD-EPI, Male 55 Low - PINF [facility] GFR/1.73 sq M.predicted among non-blacks MDRD (S/P/Bld) [Vol rate/Area] 54 mL/min/{1.73_m2} Low >=60 [facility] Comment on above: Result Comment: Repo rted eGFR is based on the CKD-EPI 2020 equation using creatinine, age, and sex. Performed By: #### H FP, GGTB, MGO, CHM7 ####[facility] (DEFAULT)[address] [place] [address] Glucose [Mass/Vol] 108 mg/dL High 70-99 [facility] Comment on above: Performed By: #### H FP, GGTB, MGO, CHM7 ####[facility] (DEFAULT)[address] [place] [address] Osmolality [Osmolality] 283 mosm/kg Normal 278-305 [facility] Comment on above: Performed By: #### H FP, GGTB, MGO, CHM7 ####[facility] (DEFAULT)[address] [place] [address] Osmolality Calc [Osmolality] 283 [facility] Potassium [Moles/Vol] 4.5 mmol/L Normal 3.5-5.0 [facility] Comment on above: Performed By: #### H FP, GGTB, MGO, CHM7 ####[facility] (DEFAULT)[address] [facility] [place] [address] Sodium [Moles/Vol] 133 mmol/L Low 135-145 [facility] Comment on above: Performed By: #### H FP, GGTB, MGO, CHM7 ####[facility] (DEFAULT)[address] [facility] [place] [address] Urea nitrogen [Mass/Vol] 19 mg/dL Normal 7-25 [facility] Comment on above: Performed By: #### H FP, GGTB, MGO, CHM7 ####[facility] (DEFAULT)[address] [facility] [place] [address] Urea nitrogen/Creatinine [Mass ratio] 12 mg/mg Normal [facility] Comment on above: Performed By: #### H FP, GGTB, MGO, CHM7 ####[facility] (DEFAULT)[address] [place] [address] GGTon 08-29-2023 Gamma glutamyl transferase [Catalytic activity/Vol] 64 U/L Normal 8-64 [facility] Comment on above: Performed By: #### H FP, GGTB, MGO, CHM7 ####[facility] (DEFAULT)[address] [facility] [place] [address] Gamma glutamyl transferase [Catalytic activity/Vol] 64 U/L 8 - 64 U/L [facility] Interpretation and review of laboratory results Normal [facility] HEPATIC FUNCTION PANELon Albumin [Mass/Vol] 3.3 g/dL Low 3.5-5.0 [facility] Comment on above: Performed By: #### H FP, GGTB, MGO, CHM7 ####[facility] (DEFAULT)[address] [facility] [place] [address] ALP [Catalytic activity/Vol] 103 U/L Normal 32-126 [facility] Comment on above: Performed By: #### H FP, GGTB, MGO, CHM7 ####[facility] (DEFAULT)[address] [place] [address] ALT [Catalytic activity/Vol] 18 U/L Normal 10-52 [facility] Comment on above: Performed By: #### H FP, GGTB, MGO, CHM7 ####[facility] (DEFAULT)[address] [place] [address] AST [Catalytic activity/Vol] 27 U/L Normal 10-39 [facility] Comment on above: Performed By: #### H FP, GGTB, MGO, CHM7 ####[facility] (DEFAULT)[address] [facility] [place] [address] Bilirubin [Mass/Vol] 1.1 mg/dL Normal <1.5 [facility] Comment on above: Performed By: #### H FP, GGTB, MGO, CHM7 ####[facility] (DEFAULT)[address] [facility] [place] [address] Bilirubin.direct [Mass/Vol] 0.3 mg/dL High NINF - 0.3 mg/dL [facility] Bilirubin.indirect [Mass/Vol] 0.3 mg/dL High <0.3 [facility] Comment on above: Performed By: #### H FP, GGTB, MGO, CHM7 ####[facility] (DEFAULT)[address] [place] [address] Protein [Mass/Vol] 6.8 g/dL Normal 6.4-8.3 [facility] Comment on above: Performed By: #### H FP, GGTB, MGO, CHM7 ####[facility] (DEFAULT)[address] [facility] [place] [address] HISTOPLASMA AND BLASTOMYCES ANTIGEN, ENZYME IMMUNOASSAY, SERMon 08-29-2023 Histoplasma/Blastomy antonia Ag Result Detected Invalid Interpretation Code Not Detected [facility] Comment on above: Result Comment: Anti gen from Histoplasma or Blastomyces (unable todifferentiate) detected. Result should be correlated withclinical presentation, exposure history, and otherdiagnostic procedures, including culture, serology,histopathology, and/or radiographic findings, to aid in thedifferentiation between histoplasmosis and blastomycosis.CRITICAL RESULT Performed By: #### H IBAG ####[facility] (DEFAULT)[address] [facility] [place] [address] Histoplasma/Blastomy antonia Ag Value 5.3 ng/mL Normal [facility] Comment on above: Result Comment: ---- ADDITIONAL INFORMATION This test was developed and its performance characteristicsdetermined by [facility] in a manner consistent with CLIArequirements. This test has not been cleared or approved bythe U.S. Food and Drug Administration.Test Performed by:[address] Director: Rosendo Bose M.D. Ph.D.; CLIA# [id number] Performed By: #### H IBAG ####[facility] (DEFAULT)[address] [place] [address], [place] [address] HISTOPLASMA ANTIGEN,URINEon 08-29-2023 HISTOPLASM AG, URINE Not detected Normal Not Detected [facility] Comment on above: Result Comment: No H istoplasma antigen detected.False negative results may occur. Repeat testing on anew specimen should be considered if clinically indicated. Performed By: #### Y HISTG ####[facility] (DEFAULT)[address] [facility] [place] [address] Histoplasma Ag Value Not detected Normal [facility] Comment on above: Result Comment: ---- ADDITIONAL INFORMATION This test has been modified from the prevention rn'sinstructions. Its performance characteristics weredetermined by [facility] in a manner consistent withCLIA requirements. This test has not been cleared orapproved by the U.S. Food and Drug Administration.Test Performed by:[facility] [place], [place] [address]Hig Director: Rosendo Bose M.D. Ph.D.; CLIA# [id number] Performed By: #### Y HISTG ####[facility] (DEFAULT)[address] [place] [address] MAGNESIUMon 08-29-2023 Interpretation and review of laboratory results Normal [facility] Magnesium [Mass/Vol] 1.7 mg/dL Normal 1.6-2.6 [facility] Comment on above: Performed By: #### H FP, GGTB, MGO, CHM7 ####[facility] (DEFAULT)[address] [place] [address] No Panel Informationon 08-29 Interpretation and review of laboratory results Abnormal [facility] Interpretation and review of laboratory results Normal [facility] PT,INR,PTTon 08-29-2023 aPTT Coag (Bld) [Time] 29.3 s Normal 24.0-34.3 [facility] Comment on above: Performed By: #### P TPTT ####[facility] (DEFAULT)[address] [place] [address] aPTT Coag (PPP) [Time] 29.3 s [facility] INR Coag (Bld) [Relative time] 1.1 {INR} 0.9 - 1.1 [facility] INR Coag (PPP) [Relative time] 1.1 {INR} Normal 0.9-1.1 [facility] Comment on above: Performed By: #### P TPTT ####[facility] (DEFAULT)[address] [place] [address] Interpretation and review of laboratory results Normal [facility] PT Coag (PPP) [Time] 13.8 s Normal 11.9-14.2 [facility] Comment on above: Performed By: #### P TPTT ####[facility] (DEFAULT)[address] [place] [address] [facility] Portable XR Chest Viewson RADIOLOGY RADIOLOGY [facility] Portable XR Chest ViewsOrder ed By: Gerald Baer on 08-29-2023 [facility] Work Phone: TACROLIMUS LEVEL, TROUGH (NE E DRUG LEVEL)Ordered By: Roxanne Louie on 08-29-2023 Tacrolimus (Bld) [Mass/Vol] 8.7 ng/mL [facility] TACROLIMUS LEVEL, TROUGH (NE E DRUG LEVEL)on 08-29-2023 Tacrolimus (Bld) [Mass/Vol] 8.9 ng/mL [facility] Tacrolimus, Trough 8.7 ng/mL Normal Bone Susana ow Transplant: 4.0-12.0, Therapeutic: 5.0-15.0 [facility] Comment on above: Order Comment: Pleas e draw at specified interval PRIOR to dose. Do not hold dose to wait for level. Specimens batched twice per day, (M-F) and once per day weekendsMethod performed is a chemiluminescent microparticle immunoasssay on the [employer] i2000.The range is based on experience at [facility] and users should be aware that target concentrations vary widely depending on concomitant therapy, time post-transplant, and desired degree of immunosuppression. Performed By: #### T ACRO ####[facility] (DEFAULT)[address] [place] [address] Tacrolimus, Trough 8.9 ng/mL Normal Bone Susana ow Transplant: 4.0-12.0, Therapeutic: 5.0-15.0 [facility] Comment on above: Order Comment: Pleas e draw at specified interval PRIOR to dose. Do not hold dose to wait for level. Specimens batched twice per day, (M-F) and once per day weekendsMethod performed is a chemiluminescent microparticle immunoasssay on the [employer] i2000.The range is based on experience at [facility] and users should be aware that target concentrations vary widely depending on concomitant therapy, time post-transplant, and desired degree of immunosuppression. Performed By: #### T ACRO ####[facility] (DEFAULT)[address] [facility] [place] [address] URINALYSIS REFLEX TO CULTURE PERFORMABLEon 08-29-2023 Appearance (U) Clear Normal Clear [facility] Comment on above: Order Comment: For i ndwelling catheters, specimen collection is acceptable on catheter day 1 and 2 only. ? Performed By: #### U [id number] ####[facility] (DEFAULT)[address] [facility] [place] [address] Bacteria ABSENT Normal ABSENT [facility] Comment on above: Order Comment: For i ndwelling catheters, specimen collection is acceptable on catheter day 1 and 2 only. ? Performed By: #### U [id number] ####[facility] (DEFAULT)[address] [facility] [place] [address] Blood Urine Trace Abnormal Negative [facility] Comment on above: Order Comment: For i ndwelling catheters, specimen collection is acceptable on catheter day 1 and 2 only. ? Performed By: #### U [id number] ####[facility] (DEFAULT)[address] [facility] [place] [address] Calcium Oxalate Crystals PRESENT Normal [facility] Comment on above: Order Comment: For i ndwelling catheters, specimen collection is acceptable on catheter day 1 and 2 only. ? Performed By: #### U [id number] ####[facility] (DEFAULT)[address] [place], [place] [address], [place] [address] Color (U) Yellow Normal Yellow [facility] Comment on above: Order Comment: For i ndwelling catheters, specimen collection is acceptable on catheter day 1 and 2 only. ? Performed By: #### U [id number] ####[facility] (DEFAULT)[address] [facility] [place] [address] Glucose Ql (U) Negative Normal Negative [facility] Comment on above: Order Comment: For i ndwelling catheters, specimen collection is acceptable on catheter day 1 and 2 only. ? Performed By: #### U [id number] ####[facility] (DEFAULT)[address] [place] [address] Ketones Ql (U) Negative Normal Negative [facility] Comment on above: Order Comment: For i ndwelling catheters, specimen collection is acceptable on catheter day 1 and 2 only. ? Performed By: #### U [id number] ####[facility] (DEFAULT)[address] [place] [address] Leukocyte esterase Test strip Ql (U) Negative Normal Negative [facility] Comment on above: Order Comment: For i ndwelling catheters, specimen collection is acceptable on catheter day 1 and 2 only. ? Performed By: #### U [id number] ####[facility] (DEFAULT)[address] [place] [address] Nitrites Urine Negative Normal Negative [facility] Comment on above: Order Comment: For i ndwelling catheters, specimen collection is acceptable on catheter day 1 and 2 only. ? Performed By: #### U [id number] ####[facility] (DEFAULT)[address] [place] [address] pH (U) 6.0 [pH] Normal 5.0-7.0 [facility] Comment on above: Order Comment: For i ndwelling catheters, specimen collection is acceptable on catheter day 1 and 2 only. ? Performed By: #### U [id number] ####[facility] (DEFAULT)[address] [place] [address] Protein Urine Negative Normal Negative [facility] Comment on above: Order Comment: For i ndwelling catheters, specimen collection is acceptable on catheter day 1 and 2 only. ? Performed By: #### U [id number] ####[facility] (DEFAULT)[address] [place] [address] RBC Urine 3-5 Abnormal 0-2 [facility] Comment on above: Order Comment: For i ndwelling catheters, specimen collection is acceptable on catheter day 1 and 2 only. ? Performed By: #### U [id number] ####[facility] (DEFAULT)[address] [place] [address] Specific [place] Urine 1.015 Normal 1.001-1.035 [facility] Comment on above: Order Comment: For i ndwelling catheters, specimen collection is acceptable on catheter day 1 and 2 only. ? Performed By: #### U [id number] ####[facility] (DEFAULT)[address] [place] [address] Squamous/Epithelial Cells 0-2/hpf Normal 0-2/hpf, 3-5/hpf = 1+ [facility] Comment on above: Order Comment: For i ndwelling catheters, specimen collection is acceptable on catheter day 1 and 2 only. ? Performed By: #### U [id number] ####[facility] (DEFAULT)[address] [place] [address] Urobilinogen Urine 1.0 E.U./dL Normal 0.2 E.U/d L, 1.0 E.U/dL [facility] Comment on above: Order Comment: For i ndwelling catheters, specimen collection is acceptable on catheter day 1 and 2 only. ? Performed By: #### U [id number] ####[facility] (DEFAULT)[address] [place] [address] WBC Urine 0 - 5 Normal 0 - 5 [facility] Comment on above: Order Comment: For i ndwelling catheters, specimen collection is acceptable on catheter day 1 and 2 only. ? Performed By: #### U [id number] ####[facility] (DEFAULT)[address] [place] [address] URINALYSIS REFLEX TO CULTURE PERFORMABLEOrdered By: Shaji Kelly on 08-29-2023 Appearance (U) Clear Clear [facility] Bacteria LM Ql (Urine sed) ABSENT ABSENT [facility] Calcium Oxalate Crystals PRESENT U [facility] Color (U) Yellow Yellow [facility] Epithelial cells.squamous LM Ql (Urine sed) 0-2/hpf 0-2/hpf, 3-5/hpf = [facility]+ [facility] Gl[facility] Test strip (U) [Mass/Vol] Negative Negative [facility] Interpretation and review of laboratory results Abnormal [facility] Ketones (U) [Mass/Vol] Negative Negative [facility] Leukocyte esterase Test strip Ql (U) Negative Negative [facility] Nitrite Ql (U) Negative Negative [facility] pH (U) 6.0 [pH] 5.0 - 7.0 [facility] Protein (U) [Mass/Vol] Negative Negative [facility] RBC (U) [#/Vol] Trace Abnormal Negative [facility] RBC LM.HPF (Urine sed) [#/Area] 3-5 Abnormal [facility] Specific gravity (U) [Rel density] 1.015 1.001 - 1.035 [facility] Urobilinogen (U) [Mass/Vol] 1.0 E.U./dL 0.2 E.U/dL, 1.0 E.U/dL [facility] WBC LM.HPF (Urine sed) [#/Area] 0 - 5 [facility] URINE CULTUREon 08-29-2023 Bacteria identified Cx Nom (U) No Growth Normal [facility] Comment on above: Order Comment: For i ndwelling catheters, specimen collection is acceptable on catheter day 1 and 2 only. Sugn top vacutainer. Urine must be to the fill line to process (4mls). If minimum volume, send urine in a yellow top vacutainer tube. Performed By: #### U R ####[facility] (DEFAULT)[address] [place] [address] US RENAL TRANSPLANT SCANon 0 08-29-2023 US RENAL TRANSPLANT SCAN Normal [facility] US for transplanted kidney l imitedon 08-29-2023 Radiology Study observation (narrative) [facility] RADIOLOGY [facility] US for transplanted kidney l imitedOrdered By: Romana Matias on 08-29-2023 [facility] Work Phone: XR CHEST PORTABLEon 08-29-20 23 XR CHEST PORTABLE Normal [facility] BLOOD CULTUREon 08-28-2023 Bacteria identified Cx Nom (Unsp spec) NO GROWTH DAY 5 OF 5 Normal [facility] Comment on [...] then anaerobic Performed By: #### B LDCULT ####[facility] (DEFAULT)[address] [place] [address] DARYL AURIS SCREEN BY PCRo n 08-28-2023 Daryl auris Screen by PCR Not detected Normal Not Detected [facility] Comment on above: Order Comment: This test was performed using a real-time PCR assay. This test was developed, and its performance characteristics determined by [facility] Laboratory at [facility]. It has not been cleared or approved by the FDA. The laboratory is regulated under CLIA as qualified to perform high-complexity testing. This test is used for clinical purposes. It should not be regarded as investigational or for research. Performed By: #### C ANDIDA AURIS SCREEN BY PCR ####[facility] (DEFAULT)[address] [place] [address]345 CBC AND ELECTRONIC DIFFon Abs Baso Auto < Normal 0.00-0.09 [facility] Comment on above: Performed By: #### L [id number] ####[facility] (DEFAULT)[address] [place] [address] 04019 Basophils (Bld) [#/Vol] K/uL 0.00 - 0.09 K/uL [facility] Basophils/100 WBC (Bld) 0.6 % Normal [facility] Comment on above: Performed By: #### L [id number] ####[facility] (DEFAULT)[address] [place] [address] 77009 DIFF STATUS Electronic Differential Normal [facility] Comment on above: Performed By: #### L [id number] ####[facility] (DEFAULT)[address] [place] [address] 41319 Differential cell count method Nom (Bld) Electronic Differential [facility] Eosinophils (Bld) [#/Vol] 0.10 10*3/uL Normal 0.00-0.48 [facility] Comment on above: Performed By: #### L [id number] ####[facility] (DEFAULT)[address] [place] [address] 33373 Eosinophils/100 WBC (Bld) 2.1 % Normal [facility] Comment on above: Performed By: #### L AB980 ####[facility] (DEFAULT)[address] [place] [address] 73990 Erythrocyte distribution width (RBC) [Ratio] 13.4 % 10.9 - 14.3 % [facility] Hematocrit (Bld) [Volume fraction] 37.9 % Low 39.6-48.8 [facility] Comment on above: Performed By: #### L AB980 ####[facility] (DEFAULT)[address] [place] [address] 57780 Hemoglobin (Bld) [Mass/Vol] 12.4 g/dL Low 13.4-16.8 [facility] Comment on above: Performed By: #### L AB980 ####[facility] (DEFAULT)[address] [place] [address], [place] [address] Immature Grans % 0.6 % Normal [facility] Comment on above: Performed By: #### L AB980 ####[facility] (DEFAULT)[address] [place] [address] 10648 Immature Grans Absolute < Normal <=0.07 [facility] Comment on above: Performed By: #### L AB980 ####[facility] (DEFAULT)[address] [place] [address] 94084 Immature granulocytes (Bld) [#/Vol] K/uL NINF - 0.07 K/uL [facility] Immature granulocytes/100 WBC (Bld) 0.6 % [facility] Lymphocytes (Bld) [#/Vol] 1.76 10*3/uL Normal 0.83-3.57 [facility] Comment on above: Performed By: #### L AB980 ####[facility] (DEFAULT)[address] [place] [address] Lymphocytes/100 WBC (Bld) 37.1 % Normal [facility] Comment on above: Performed By: #### L AB980 ####[facility] (DEFAULT)[address] [place] [address] MCH (RBC) [Entitic mass] 27.8 pg 26.1 - 33.3 pg [facility] MCHC (RBC) [Mass/Vol] 32.7 g/dL 31.9 - 36.5 g/dL [facility] MCV (RBC) [Entitic vol] 85.0 fL Normal 79.0-94.5 [facility] Comment on above: Performed By: #### L AB980 ####[facility] (DEFAULT)[address] [place] [address] Mean Cell Hgb 27.8 pg Normal 26.1-33.3 [facility] Comment on above: Performed By: #### L AB980 ####[facility] (DEFAULT)[address] [place] [address] Mean Cell Hgb Conc 32.7 g/dL Normal 31.9-36.5 [facility] Comment on above: Performed By: #### L AB980 ####[facility] (DEFAULT)[address] [place] [address] Monocytes (Bld) [#/Vol] 0.66 10*3/uL Normal 0.24-0.93 [facility] Comment on above: Performed By: #### L AB980 ####[facility] (DEFAULT)[address] [place] [address] Monocytes/100 WBC (Bld) 13.9 % Normal [facility] Comment on above: Performed By: #### L AB980 ####[facility] (DEFAULT)[address] [place] [address] Neutrophils (Bld) [#/Vol] 2.16 10*3/uL 1.57 - 6.19 K/uL [facility] Nucleated RBC 0.0 /100 WBC Normal <=0.2 [facility] Comment on above: Performed By: #### L AB980 ####[facility] (DEFAULT)[address] [facility] [place] [address] Nucleated RBC/100 WBC (Bld) [Ratio] 0.0 % NINF [facility] Platelet mean volume (Bld) [Entitic vol] 9.3 fL Normal 8.7-12.3 [facility] Comment on above: Performed By: #### L AB980 ####[facility] (DEFAULT)[address] [facility] [place] [address] Platelets (Bld) [#/Vol] 262 10*3/uL Normal 146-337 [facility] Comment on above: Performed By: #### L AB980 ####[facility] (DEFAULT)[address] [facility] [place] [address] RBC (Bld) [#/Vol] 4.46 10*6/uL Normal 4.38-5.83 [facility] Comment on above: Performed By: #### L AB980 ####[facility] (DEFAULT)[address] [facility] [place] [address] RBC Distribution 13.4 % Normal 10.9-14.3 [facility] Comment on above: Performed By: #### L [id number] ####[facility] (DEFAULT)[address] [facility] [place] [address] Segmented neutrophils/100 WBC (Bld) 45.7 % [facility] Segs + Bands Auto 45.7 % Normal [facility] Comment on above: Performed By: #### L [id number] ####[facility] (DEFAULT)[address] [facility] [place] [address] Segs + Bands,Absolute Auto 2.16 K/uL Normal 1.57-6.19 [facility] Comment on above: Performed By: #### L [id number] ####[facility] (DEFAULT)[address] [place] [address] WBC (Bld) [#/Vol] 4.74 10*3/uL Normal 3.73-10.10 [facility] Comment on above: Performed By: #### L [id number] ####[facility] (DEFAULT)[address] [place] [address] CHEM 6 (LYTES, BUN CREA)on 0 08-28-2022 Anion gap [Moles/Vol] 13 mmol/L Normal 7-17 [facility] Comment on above: Performed By: #### C HM6 ####[facility] (DEFAULT)[address] [place] [address] Chloride [Moles/Vol] 103 mmol/L Normal 98-108 [facility] Comment on above: Performed By: #### C HM6 ####[facility] (DEFAULT)[address] [place] [address] CO2 [Moles/Vol] 22 mmol/L Normal 21-31 [facility] Comment on above: Performed By: #### C HM6 ####[facility] (DEFAULT)[address] [place] [address] Creatinine [Mass/Vol] 1.62 mg/dL High 0.70-1.30 [facility] Comment on above: Performed By: #### C HM6 ####[facility] (DEFAULT)[address] [place] [address] eGFR, CKD-EPI, Male 52 Low - PINF [facility] GFR/1.73 sq M.predicted among non-blacks MDRD (S/P/Bld) [Vol rate/Area] 51 mL/min/{1.73_m2} Low >=60 [facility] Comment on above: Result Comment: Repo rted eGFR is based on the CKD-EPI 2020 equation using creatinine, age, and sex. Performed By: #### C HM6 ####[facility] (DEFAULT)[address] [place] [address] Potassium [Moles/Vol] 4.3 mmol/L Normal 3.5-5.0 [facility] Comment on above: Performed By: #### C HM6 ####[facility] (DEFAULT)[address] [place] [address], [place] [address] Sodium [Moles/Vol] 134 mmol/L Low 135-145 [facility] Comment on above: Performed By: #### C HM6 ####[facility] (DEFAULT)[address] [place] [address], [place] [address] Urea nitrogen [Mass/Vol] 22 mg/dL Normal 7-25 [facility] Comment on above: Performed By: #### C HM6 ####[facility] (DEFAULT)[address] [place] [address], [place] [address] Urea nitrogen/Creatinine [Mass ratio] 14 mg/mg Normal [facility] Comment on above: Performed By: #### C HM6 ####[facility] (DEFAULT)[address] [place] [address] IMMUNOCOMPROMISED RESPIRATOR Y PANELon 08-28-2023 Adenovirus - Pcr Not detected Normal Not Detected [facility] Comment on above: Order [...] acid assay. Performed By: #### I CRESP ####[facility] (DEFAULT)[address] [place] [address], [place] [address] Bordetella Parapertussis Not detected Normal Not Detected [facility] Comment on above: Order [...] acid assay. Performed By: #### I CRESP ####[facility] (DEFAULT)[address] [place] [address], [place] [address] Bordetella Pertussis Not detected Normal Not Detected [facility] Comment on above: Order [...] acid assay. Performed By: #### I CRESP ####[facility] (DEFAULT)[address] [place] [address], [place] [address] Chlamydia Pneumoniae Not detected Normal Not Detected [facility] Comment on above: Order [...] acid assay. Performed By: #### I CRESP ####[facility] (DEFAULT)[address] [place] [address], [place] [address] Coronavirus 229E Not detected Normal Not Detected [facility] Comment on above: Order [...] acid assay. Performed By: #### I CRESP ####[facility] (DEFAULT)[address] [place] [address], [place] [address] Coronavirus Hku1 Not detected Normal Not Detected [facility] Comment on above: Order [...] acid assay. Performed By: #### I CRESP ####[facility] (DEFAULT)[address] [place] [address], [place] [address] Coronavirus Nl63 Not detected Normal Not Detected [facility] Comment on above: Order [...] acid assay. Performed By: #### I CRESP ####[facility] (DEFAULT)[address] [place] [address], [place] [address] Coronavirus Oc43 Not detected Normal Not Detected [facility] Comment on above: Order [...] acid assay. Performed By: #### I CRESP ####[facility] (DEFAULT)[address] [place] [address] Influenza A - Pcr Not detected Normal Not Detected [facility] Comment on above: Order Comment: Viral [...] acid assay. Performed By: #### I CRESP ####[facility] (DEFAULT)[address] [place] [address], [place] [address] Influenza B - Pcr Not detected Normal Not Detected [facility] Comment on above: Order Comment: Viral [...] acid assay. Performed By: #### I CRESP ####[facility] (DEFAULT)[address] [place] [address], [place] [address] Metapneumovirus - Pcr Not detected Normal Not Detected [facility] Comment on above: Order [...] acid assay. Performed By: #### I CRESP ####[facility] (DEFAULT)[address] [address] Mycoplasma Pneumoniae Not detected Normal Not Detected [facility] Comment on above: Order [...] assay. Performed By: #### I CRESP ####[facility] (DEFAULT)[address] [place] [address], [place] [address] Parainfluenza 1 - Pcr Not detected Normal Not Detected [facility] Comment on above: Order [...] acid assay. Performed By: #### I CRESP ####[facility] (DEFAULT)[address] [place] [address], [place] [address] Parainfluenza 2 - Pcr Not detected Normal Not Detected [facility] Comment on above: Order [...] acid assay. Performed By: #### I CRESP ####[facility] (DEFAULT)[address] [place] [address], [place] [address] Parainfluenza 3 - Pcr Not detected Normal Not Detected [facility] Comment on above: Order [...] acid assay. Performed By: #### I CRESP ####[facility] (DEFAULT)[address] [place] [address] Parainfluenza 4 - Pcr Not detected Normal Not Detected [facility] Comment on above: Order [...] acid assay. Performed By: #### I CRESP ####[facility] (DEFAULT)[address] [place] [address] Rhinovirus/Enterovir us - PCR Not detected Normal Not Detected [facility] Comment on above: Order [...] acid assay. Performed By: #### I CRESP ####[facility] (DEFAULT)[address] [place] [address] Rsv - Pcr Not detected Normal Not Detected [facility] Comment on above: Order [...] acid assay. Performed By: #### I CRESP ####[facility] (DEFAULT)[address] [place] [address] SARS-CoV-2 (COVID-19) RNA ESTELITA+probe Ql (Unsp spec) Not detected Normal NOT DETECTED [facility] Comment on above: Order [...] acid assay. Performed By: #### I CRESP ####[facility] (DEFAULT)[address] [place] [address] No Panel Informationon 08-28 Interpretation and review of laboratory results Abnormal [facility] Portable XR Chest Viewson Radiology Study observation (narrative) [facility] Respiratory virus DNA+RNA NA A+probe Nom (Unsp spec)Ordered By: Dayami Harris on 08-28-2023 Adenovirus DNA ESTELITA+probe Nom (Unsp spec) Not detected Not Detected [facility] B. parapertussis DNA ESTELITA+probe Ql (Unsp spec) Not detected Not Detected [facility] B. pertussis DNA ESTELITA+probe Ql (Unsp spec) Not detected Not Detected [facility] C. pneumoniae DNA ESTELITA+probe Ql (Unsp spec) Not detected Not Detected [facility] FLUAV RNA ESTELITA+probe Ql (Unsp spec) Not detected Not Detected [facility] FLUBV RNA ESTELITA+probe Ql (Unsp spec) Not detected Not Detected [facility] HCoV 229E RNA ESTELITA+non-probe Ql (Nph) Not detected Not Detected [facility] HCoV HKU1 RNA ESTELITA+non-probe Ql (Nph) Not detected Not Detected [facility] HCoV NL63 RNA ESTELITA+non-probe Ql (Nph) Not detected Not Detected [facility] HCoV OC43 RNA ESTELITA+non-probe Ql (Nph) Not detected Not Detected [facility] hMPV A RNA ESTELITA+probe Ql (Unsp spec) Not detected Not Detected [facility] Interpretation and review of laboratory results Normal [facility] M. pneumoniae DNA ESTELITA+probe Ql (Unsp spec) Not detected Not Detected [facility] Parainfluenza virus 1 RNA ESTELITA+probe Ql (Unsp spec) Not detected Not Detected [facility] Parainfluenza virus 2 RNA ESTELITA+probe Ql (Unsp spec) Not detected Not Detected [facility] Parainfluenza virus 3 RNA ESTELITA+probe Ql (Unsp spec) Not detected Not Detected [facility] Parainfluenza virus 4 RNA ESTELITA+probe Ql (Unsp spec) Not detected Not Detected [facility] Rhinovirus+Enterovir us RNA ESTELITA+probe Ql (Unsp spec) Not detected Not Detected [facility] RSV RNA ESTELITA+probe Ql (Unsp spec) Not detected Not Detected [facility] SARS-CoV-2 (COVID-19) RNA ESTELITA+probe Ql (Unsp spec) Not detected NOT DETECTED [facility] ALBUMINon 04-28-2023 Albumin [Mass/Vol] 4.0 g/dL Normal 3.4-5.0 [facility] Comment on above: Performed By: #### C MP #### [facility] [address] [place] [address] Dr. Dwight Waters ALKALINE PHOSPHAon ALP [Catalytic activity/Vol] 106 U/L Normal 46-116 [facility] Comment on above: Performed By: #### F [id number] #### [facility] [address] [place] [address] Dr. Dwight Waters BILIRUBIN CONJUGATED (DIRECT )on 04-28-2023 BILI, CONJUGATED 0.3 mg/dL Critically high 0.0-0.2 [facility] Comment on above: Performed By: #### C MP #### [facility] [address] [place] [address] Dr. Dwight Waters BILIRUBIN TOTALon 04-28-2023 Bilirubin [Mass/Vol] 1.4 mg/dL Critically high 0.2-1.0 [facility] Comment on above: Performed By: #### C MP #### [facility] [address] [place] [address] Dr. Dwight Waters BUNon 05-30-2023 Urea nitrogen [Mass/Vol] 12.0 mg/dL Normal 7.0-18.0 [facility] Comment on above: Performed By: #### U RTPCR #### [facility] [address] [place] [address] Dr. Dwight Waters CALCIUMon 04-28-2023 Calcium [Mass/Vol] 9.3 mg/dL Normal 8.5-10.1 [facility] Comment on above: Performed By: #### U RTPCR #### [facility] [address] [place] [address] Dr. Dwight Waters CBC AUTO DIFFon 04-28-2023 BASO # 0.1 103/ul Normal 0.0-0.1 [facility] Comment on above: Performed By: #### C BC #### [facility] [address] [place] [address] Dr. Dwight Waters Basophils/100 WBC (Bld) 0.9 % Normal 0.2-2.0 [facility] Comment on above: Performed By: #### C BC #### [facility] [address] [place] [address] Dr. Dwight Waters EO # 0.2 103/ul Normal 0.0-0.7 [facility] Comment on above: Performed By: #### C BC #### [facility] [address] [place] [address] Dr. Dwight Waters Eosinophils/100 WBC (Bld) 3.8 % Normal 0.9-7.0 [facility] Comment on above: Performed By: #### C BC #### [facility] [address] [place] [address] Dr. Dwight Waters Erythrocyte distribution width (RBC) [Ratio] 12.5 % Normal 11.0-15.0 [facility] Comment on above: Performed By: #### C BC #### [facility] [address] [place] [address] Dr. Dwight Waters Hematocrit (Bld) [Volume fraction] 49.8 % Normal 42.0-54.0 [facility] Comment on above: Performed By: #### C BC #### [facility] [address] [place] [address] Dr. Dwight Waters Hemoglobin (Bld) [Mass/Vol] 16.4 g/dL Normal 14.0-18.0 [facility] Comment on above: Performed By: #### C BC #### [facility] [address] [place] [address] Dr. Dwight Waters IG # 0.01 10e3/ul Normal 0.00-0.03 [facility] Comment on above: Performed By: #### C BC #### [facility] [address] [place] [address] Dr. Dwight Waters IG % 0.2 % Normal 0.0-0.5 [facility] Comment on above: Performed By: #### C BC #### [facility] [address] [place] [address] Dr. Dwight Waters LYMPH # 2.1 103/ul Normal 1.2-3.8 [facility] Comment on above: Performed By: #### C BC #### [facility] [address] [place] [address] Dr. Dwight Waters Lymphocytes/100 WBC (Bld) 39.1 % Normal 20.5-60.0 [facility] Comment on above: Performed By: #### C BC #### [facility] [address] [place] [address] Dr. Dwight Waters MANUAL DIFF REQ NO Normal [facility] Comment on above: Performed By: #### C BC #### [facility] [address] [place] [address] Dr. Dwight Waters MCH (RBC) [Entitic mass] 28.6 pg Normal 25.9-34.0 [facility] Comment on above: Performed By: #### C BC #### [facility] [address] [place] [address] Dr. Dwight Waters MCHC (RBC) [Mass/Vol] 32.9 g/dL Normal 29.9-35.2 [facility] Comment on above: Performed By: #### C BC #### [facility] [address] [place] [address] Dr. Dwight Waters MCV (RBC) [Entitic vol] 86.9 fL Normal 80.0-94.0 [facility] Comment on above: Performed By: #### C BC #### [facility] [address] [place] [address] Dr. Dwight Waters MONO # 0.6 103/ul Normal 0.3-0.8 [facility] Comment on above: Performed By: #### C BC #### [facility] [address] [place] [address] Dr. Dwight Waters Monocytes/100 WBC (Bld) 10.6 % Normal 1.7-12.0 [facility] Comment on above: Performed By: #### C BC #### [facility] [address] [place] [address] Dr. Dwight Waters NEUT # 2.5 103/ul Normal 1.4-6.5 [facility] Comment on above: Performed By: #### C BC #### [facility] [address] [place] [address] Dr. Dwight Waters Neutrophils/100 WBC (Bld) 45.4 % Normal 43.0-75.0 [facility] Comment on above: Performed By: #### C BC #### [facility] [address] [place] [address] Dr. Dwight Waters Platelet mean volume (Bld) [Entitic vol] 9.3 fL Critically low 9.5-13.5 [facility] Comment on above: Performed By: #### C BC #### [facility] [address] [place] [address] Dr. Dwight Waters PLT 248 103/ul Normal 150-450 [facility] Comment on above: Performed By: #### C BC #### [facility] [address] [place] [address] Dr. Dwight Waters RBC 5.73 106/ul Normal 4.70-6.10 [facility] Comment on above: Performed By: #### C BC #### [facility] [address] [place] [address] Dr. Dwight Waters WBC 5.5 103/ul Normal 4.0-11.0 [facility] Comment on above: Performed By: #### C BC #### [facility] [address] [place] [address] Dr. Dwight Waters CHLORIDEon 04-28-2023 Chloride [Moles/Vol] 107 mmol/L Normal 98-107 [facility] Comment on above: Performed By: #### U RTPCR #### [facility] [address] [place] [address] Dr. Dwight Waters CO2on 04-28-2023 CO2 [Moles/Vol] 28.9 mmol/L Normal 21.0-32.0 [facility] Comment on above: Performed By: #### U RTPCR #### [facility] [address] [place] [address] Dr. Dwight Waters CREATININEon 04-28-2023 Creatinine [Mass/Vol] 1.17 mg/dL Normal 0.70-1.30 [facility] Comment on above: Performed By: #### U RTPCR #### [facility] [address] [place] [address] Dr. wDight Waters EGFR-AF TONGAN >60 Normal >=60 [facility] Comment on above: Performed By: #### U RTPCR #### [facility] [address] [place] [address] Dr. Dwight Waters EGFR-NON AF TONGAN >60 Normal >=60 [facility] Comment on above: Performed By: #### U RTPCR #### [facility] [address] [place] [address] Dr. Dwight Waters GGTon 04-28-2023 Gamma glutamyl transferase [Catalytic activity/Vol] 27 U/L Normal 15-85 [facility] Comment on above: Performed By: #### U RTPCR #### [facility] [address] [place] [address] Dr. Dwight Waters GLUCOSE BLOODon 04-28-2023 Glucose [Mass/Vol] 110 mg/dL Critically high 74-106 [facility] Comment on above: Performed By: #### U RTPCR #### [facility] [address] [place] [address] Dr. Dwight Waters MAGNESIUMon 04-28-2023 Magnesium [Mass/Vol] 1.7 mg/dL Critically low 1.8-2.4 [facility] Comment on above: Performed By: #### U RTPCR #### [facility] [address] [place] [address] Dr. Dwight Waters NAon 04-28-2023 Sodium [Moles/Vol] 144 mmol/L Normal 136-145 [facility] Comment on above: Performed By: #### U RTPCR #### [facility] [address] [place] [address] Dr. Dwight Waters PHOSPHORUSon 04-28-2023 Phosphate [Mass/Vol] 3.2 mg/dL Normal 2.6-4.7 [facility] Comment on above: Performed By: #### U RTPCR #### [facility] [address] [place] [address] Dr. Dwight Waters POTASSIUMon 04-28-2023 Potassium [Moles/Vol] 4.0 mmol/L Normal 3.5-5.1 [facility] Comment on above: Performed By: #### U RTPCR #### [facility] [address] [place] [address] Dr. Dwight Waters SGOTon 04-28-2023 AST [Catalytic activity/Vol] 25 U/L Normal 15-37 [facility] Comment on above: Performed By: #### C MP #### [facility] [address] [place] [address] Dr. Dwight Waters SGPTon 04-28-2023 ALT [Catalytic activity/Vol] 40 U/L Normal 16-63 [facility] Comment on above: Performed By: #### C MP #### [facility] [address] [place] [address] Dr. Dwight Waters URINE T PROTEIN CREAT RATIOo n 04-28-2023 Protein (U) [Mass/Vol] 10.1 mg/dL Normal <=12.0 [facility] Comment on above: Performed By: #### U RTPCR #### [facility] [address] [place] [address] Dr. Dwight Waters UR PROT CREAT RAT 0.14 Normal [facility] Comment on above: Performed By: #### U RTPCR #### [facility] [address] [place] [address] Dr. Dwight Waters URINE CREAT 74.40 mg/dL Normal 20.00-300.00 [facility] Comment on above: Performed By: #### U RTPCR #### [facility] [address] [place] [address] Dr. Dwight Waters Office Visiton 04-13-2023 Follow-up visit [id number] George Styles Tray 1970 M Date Provider Department Center 04/13/2023 MIGUEL PARADA [facility] Family History Problem Relation Age of Onset Coronary artery disease Mother Coronary artery disease Father Family Status - Relation Status Age at Mother Father Level of Service:49895 NE OFFICE/OUTPATIENT ESTABLISHED LOW MDM 20-29 MIN Reason for Visit and Comments: Hypertension [921991] Hyperlipidemia [182] Normal [facility] BK VIRUS PCR QUANTon 023 BKV DNA QUANT PCR PLASMA Negative Normal Negative [facility] Comment on above: Result Comment: No B K DNA detected. . The linear range of the assay is 22 - 100,000,000 IU/mL. Performed By: #### B KVIRUS #### [facility] [address] [place] [address] Dr. Dwight Waters Log10 BKV DNA Plasma Normal [facility] Comment on above: Performed By: #### B KVIRUS #### [facility] [address] [place] [address] Dr. Dwight Waters FK506 (TACROLIMUS) WHOLE BLO ODon 03-04-2023 Tacrolimus (FK506), Blood 5.9 ng/mL Normal 2.0-20.0 [facility] Comment on above: Result Comment: Trou gh (immediately following transplant) 15.0 . Trough (steady state, 2 weeks or more after transplant): 3.0 - 8.0 . Performed by LC-MS/MS technology. Performed By: #### C MP #### [facility] [address] [place] [address] Dr. Dwight Waters ALBUMINon 03-02-2023 Albumin [Mass/Vol] 3.9 g/dL Normal 3.4-5.0 [facility] Comment on above: Performed By: #### U RTPCR #### [facility] [address] [place] [address] Dr. Dwight Waters ALKALINE PHOSPHAon ALP [Catalytic activity/Vol] 105 U/L Normal 46-116 [facility] Comment on above: Performed By: #### U RTPCR #### [facility] [address] [place] [address] Dr. Dwight Waters BILIRUBIN CONJUGATED (DIRECT )on 03-02-2023 BILI, CONJUGATED 0.2 mg/dL Normal 0.0-0.2 [facility] Comment on above: Performed By: #### U RTPCR #### [facility] [address] [place] [address] Dr. Dwight Waters BILIRUBIN TOTALon 03-02-2023 Bilirubin [Mass/Vol] 0.9 mg/dL Normal 0.2-1.0 [facility] Comment on above: Performed By: #### U RTPCR #### [facility] [address] [place] [address] Dr. Dwight Waters CBC AUTO DIFFon 03-02-2023 BASO # 0.1 103/ul Normal 0.0-0.1 [facility] Comment on above: Performed By: #### C BC #### [facility] [address] [place] [address] Dr. Dwight Waters Basophils/100 WBC (Bld) 0.9 % Normal 0.2-2.0 [facility] Comment on above: Performed By: #### C BC #### [facility] [address] [place] [address] Dr. Dwight Waters EO # 0.2 103/ul Normal 0.0-0.7 [facility] Comment on above: Performed By: #### C BC #### [facility] [address] [place] [address] Dr. Dwight Waters Eosinophils/100 WBC (Bld) 3.5 % Normal 0.9-7.0 [facility] Comment on above: Performed By: #### C BC #### [facility] [address] [place] [address] Dr. Dwight Waters Erythrocyte distribution width (RBC) [Ratio] 12.7 % Normal 11.0-15.0 [facility] Comment on above: Performed By: #### C BC #### [facility] [address] [place] [address] Dr. Dwight Waters Hematocrit (Bld) [Volume fraction] 48.2 % Normal 42.0-54.0 [facility] Comment on above: Performed By: #### C BC #### [facility] [address] [place] [address] Dr. Dwight Waters Hemoglobin (Bld) [Mass/Vol] 15.9 g/dL Normal 14.0-18.0 [facility] Comment on above: Performed By: #### C BC #### [facility] [address] [place] [address] Dr. Dwight Waters IG # 0.01 10e3/ul Normal 0.00-0.03 [facility] Comment on above: Performed By: #### C BC #### [facility] [address] [place] [address] Dr. Dwight Waters IG % 0.2 % Normal 0.0-0.5 [facility] Comment on above: Performed By: #### C BC #### [facility] [address] [place] [address] Dr. Dwight Waters LYMPH # 2.1 103/ul Normal 1.2-3.8 [facility] Comment on above: Performed By: #### C BC #### [facility] [address] [place] [address] Dr. Dwight Waters Lymphocytes/100 WBC (Bld) 37.4 % Normal 20.5-60.0 [facility] Comment on above: Performed By: #### C BC #### [facility] [address] [place] [address] Dr. Dwight Waters MANUAL DIFF REQ NO Normal [facility] Comment on above: Performed By: #### C BC #### [facility] [address] [place] [address] Dr. Dwight Waters MCH (RBC) [Entitic mass] 28.3 pg Normal 25.9-34.0 [facility] Comment on above: Performed By: #### C BC #### [facility] [address] [place] [address] Dr. Dwight Waters MCHC (RBC) [Mass/Vol] 33.0 g/dL Normal 29.9-35.2 [facility] Comment on above: Performed By: #### C BC #### [facility] [address] [place] [address] Dr. Dwight Waters MCV (RBC) [Entitic vol] 85.8 fL Normal 80.0-94.0 [facility] Comment on above: Performed By: #### C BC #### [facility] [address] [place] [address] Dr. Dwight Waters MONO # 0.6 103/ul Normal 0.3-0.8 [facility] Comment on above: Performed By: #### C BC #### [facility] [address] [place] [address] Dr. Dwight Waters Monocytes/100 WBC (Bld) 10.2 % Normal 1.7-12.0 [facility] Comment on above: Performed By: #### C BC #### [facility] [address] [place] [address] Dr. Dwight Waters NEUT # 2.7 103/ul Normal 1.4-6.5 [facility] Comment on above: Performed By: #### C BC #### [facility] [address] [place] [address] Dr. Dwight Waters Neutrophils/100 WBC (Bld) 47.8 % Normal 43.0-75.0 [facility] Comment on above: Performed By: #### C BC #### [facility] [address] [place] [address] Dr. Dwight Waters Platelet mean volume (Bld) [Entitic vol] 9.3 fL Critically low 9.5-13.5 [facility] Comment on above: Performed By: #### C BC #### [facility] [address] [address] [address] Dwight Waters PLT 241 103/ul Normal 150-450 [facility] Comment on above: Performed By: #### C BC #### [facility] [address] [place] [address] Dr. Dwight Waters RBC 5.62 106/ul Normal 4.70-6.10 [facility] Comment on above: Performed By: #### C BC #### [facility] [address] [place] [address] Dr. Dwight Waters WBC 5.7 103/ul Normal 4.0-11.0 [facility] Comment on above: Performed By: #### C BC #### [facility] [address] [place] [address] Dr. Dwight Waters GGTon 03-02-2023 Gamma glutamyl transferase [Catalytic activity/Vol] 25 U/L Normal 15-85 [facility] Comment on above: Performed By: #### U RTPCR #### [facility] [address] [place] [address] Dr. Dwight Waters MAGNESIUMon 03-02-2023 Magnesium [Mass/Vol] 1.6 mg/dL Critically low 1.8-2.4 [facility] Comment on above: Performed By: #### U RTPCR #### [facility] [address] [place] [address] Dr. Dwight Waters PHOSPHORUSon 03-02-2023 Phosphate [Mass/Vol] 3.6 mg/dL Normal 2.6-4.7 [facility] Comment on above: Performed By: #### U RTPCR #### [facility] [address] [place] [address] Dr. Dwight Waters PROF CHEM 8 (BAS METB)on Anion gap [Moles/Vol] 9.4 mmol/L Normal [facility] Comment on above: Performed By: #### U RTPCR #### [facility] [address] [place] [address] Dr. Dwight Waters Calcium [Mass/Vol] 9.3 mg/dL Normal 8.5-10.1 [facility] Comment on above: Performed By: #### U RTPCR #### [facility] [address] [address] [address] Dwight Waters Chloride [Moles/Vol] 108 mmol/L Critically high 98-107 [facility] Comment on above: Performed By: #### U RTPCR #### [facility] [address] [address] [address] Dwight Waters CO2 [Moles/Vol] 27.2 mmol/L Normal 21.0-32.0 [facility] Comment on above: Performed By: #### U RTPCR #### [facility] [address] [address] [address] Dwight Waters Creatinine [Mass/Vol] 1.12 mg/dL Normal 0.70-1.30 [facility] Comment on above: Performed By: #### U RTPCR #### [facility] [address] [address] [address] Dwight Waters EGFR-AF TONGAN >60 Normal >=60 [facility] Comment on above: Performed By: #### U RTPCR #### [facility] [address] [address] [address] Dwight Waters EGFR-NON AF TONGAN >60 Normal >=60 [facility] Comment on above: Performed By: #### U RTPCR #### [facility] [address] [address] [address] Dwight Waters Glucose [Mass/Vol] 113 mg/dL Critically high 74-106 [facility] Comment on above: Performed By: #### U RTPCR #### [facility] [address] [address] [address] Dwight Waters Potassium [Moles/Vol] 3.6 mmol/L Normal 3.5-5.1 [facility] Comment on above: Performed By: #### U RTPCR #### [facility] [address] [address] [address] Dwight Waters Sodium [Moles/Vol] 141 mmol/L Normal 136-145 [facility] Comment on above: Performed By: #### U RTPCR #### [facility] [address] [place] [address] Dr. Dwight Waters Urea nitrogen [Mass/Vol] 14.0 mg/dL Normal 7.0-18.0 [facility] Comment on above: Performed By: #### U RTPCR #### [facility] [address] [place] [address] Dr. Dwight Waters Urea nitrogen/Creatinine [Mass ratio] 12.5 mg/mg Normal [facility] Comment on above: Performed By: #### U RTPCR #### [facility] [address] [place] [address] Dr. Dwight OLVERAOTon 03-02-2023 AST [Catalytic activity/Vol] 20 U/L Normal 15-37 [facility] Comment on above: Performed By: #### U RTPCR #### [facility] [address] [place] [address] Dr. Dwight OLVERAPTon 03-02-2023 ALT [Catalytic activity/Vol] 30 U/L Normal 16-63 [facility] Comment on above: Performed By: #### U RTPCR #### [facility] [address] [place] [address] Dr. Dwight Waters URINE T PROTEIN CREAT RATIOo n 03-02-2023 Protein (U) [Mass/Vol] 10.3 mg/dL Normal <=12.0 [facility] Comment on above: Performed By: #### U RTPCR #### [facility] [address] [place] [address] Dr. Dwight Waters UR PROT CREAT RAT 0.15 Normal [facility] Comment on above: Performed By: #### U RTPCR #### [facility] [address] [place] [address] Dr. Dwight Waters URINE CREAT 68.96 mg/dL Normal 20.00-300.00 [facility] Comment on above: Performed By: #### U RTPCR #### [facility] [address] [place] [address] Dr. Dwight Waters BK VIRUS PCR QUANTon 023 BKV DNA QUANT PCR PLASMA Negative Normal Negative [facility] Comment on above: Result Comment: No B K DNA detected. . The linear range of the assay is 22 - 100,000,000 IU/mL. Performed By: #### C MP #### [facility] [address] [place] [address] Dr. Dwight Waters Log10 BKV DNA Plasma Normal [facility] Comment on above: Performed By: #### C MP #### [facility] [address] [place] [address] Dr. Dwight Waters FK506 (TACROLIMUS) WHOLE BLO ODon 12-31-2022 Tacrolimus (FK506), Blood 5.6 ng/mL Normal 2.0-20.0 [facility] Comment on above: Result Comment: Trou gh (immediately following transplant) 15.0 . Trough (steady state, 2 weeks or more after transplant): 3.0 - 8.0 . Performed by LC-MS/MS technology. Performed By: #### C MP #### [facility] [address] [place] [address] Dr. Dwight Waters ALKALINE PHOSPHAon ALP [Catalytic activity/Vol] 96 U/L Normal 46-116 [facility] Comment on above: Performed By: #### C BC #### [facility] [address] [place] [address] Dr. Dwight Waters BILIRUBIN CONJUGATED (DIRECT )on 12-29-2022 BILI, CONJUGATED 0.3 mg/dL Critically high 0.0-0.2 [facility] Comment on above: Performed By: #### C BC #### [facility] [address] [place] [address] Dr. Dwight Waters BILIRUBIN TOTALon 12-29-2022 Bilirubin [Mass/Vol] 1.1 mg/dL Critically high 0.2-1.0 [facility] Comment on above: Performed By: #### C BC #### [facility] [address] [place] [address] Dr. Dwight Waters CBC AUTO DIFFon 12-29-2022 BASO # 0.1 103/ul Normal 0.0-0.1 [facility] Comment on above: Performed By: #### C MP #### [facility] [address] [place] [address] Dr. Dwight Waters Basophils/100 WBC (Bld) 0.8 % Normal 0.2-2.0 [facility] Comment on above: Performed By: #### C MP #### [facility] [address] [place] [address] Dr. Dwight Waters EO # 0.2 103/ul Normal 0.0-0.7 [facility] Comment on above: Performed By: #### C MP #### [facility] [address] [place] [address] Dr. Dwight Waters Eosinophils/100 WBC (Bld) 3.0 % Normal 0.9-7.0 [facility] Comment on above: Performed By: #### C MP #### [facility] [address] [place] [address] Dr. Dwight Waters Erythrocyte distribution width (RBC) [Ratio] 12.9 % Normal 11.0-15.0 [facility] Comment on above: Performed By: #### C MP #### [facility] [address] [place] [address] Dr. Dwight Waters Hematocrit (Bld) [Volume fraction] 46.9 % Normal 42.0-54.0 [facility] Comment on above: Performed By: #### C MP #### [facility] [address] [place] [address] Dr. Dwight Waters Hemoglobin (Bld) [Mass/Vol] 16.1 g/dL Normal 14.0-18.0 [facility] Comment on above: Performed By: #### C MP #### [facility] [address] [place] [address] Dr. Dwight Wtaers IG # 0.01 10e3/ul Normal 0.00-0.03 [facility] Comment on above: Performed By: #### C MP #### [facility] [address] [place] [address] Dr. Dwight Waters IG % 0.2 % Normal 0.0-0.5 [facility] Comment on above: Performed By: #### C MP #### [facility] [address] [place] [address] Dr. Dwight Waters LYMPH # 1.8 103/ul Normal 1.2-3.8 [facility] Comment on above: Performed By: #### C MP #### [facility] [address] [place] [address] Dr. Dwight Waters Lymphocytes/100 WBC (Bld) 27.9 % Normal 20.5-60.0 [facility] Comment on above: Performed By: #### C MP #### [facility] [address] [place] [address] Dr. Dwight Waters MANUAL DIFF REQ NO Normal [facility] Comment on above: Performed By: #### C MP #### [facility] [address] [place] [address] Dr. Dwight Waters MCH (RBC) [Entitic mass] 28.5 pg Normal 25.9-34.0 [facility] Comment on above: Performed By: #### C MP #### [facility] [address] [place] [address] Dr. Dwight Waters MCHC (RBC) [Mass/Vol] 34.3 g/dL Normal 29.9-35.2 [facility] Comment on above: Performed By: #### C MP #### [facility] [address] [place] [address] Dr. Dwight Waters MCV (RBC) [Entitic vol] 83.2 fL Normal 80.0-94.0 [facility] Comment on above: Performed By: #### C MP #### [facility] [address] [place] [address] Dr. Dwight Waters MONO # 0.5 103/ul Normal 0.3-0.8 [facility] Comment on above: Performed By: #### C MP #### [facility] [address] [place] [address] Dr. Dwight Waters Monocytes/100 WBC (Bld) 8.1 % Normal 1.7-12.0 [facility] Comment on above: Performed By: #### C MP #### [facility] [address] [address] [address] Dwight Waters NEUT # 3.8 103/ul Normal 1.4-6.5 [facility] Comment on above: Performed By: #### C MP #### [facility] [address] [place] [address] Dr. Dwight Waters Neutrophils/100 WBC (Bld) 60.0 % Normal 43.0-75.0 [facility] Comment on above: Performed By: #### C MP #### [facility] [address] [place] [address] Dr. Dwight Waters Platelet mean volume (Bld) [Entitic vol] 9.2 fL Critically low 9.5-13.5 [facility] Comment on above: Performed By: #### C MP #### [facility] [address] [place] [address] Dr. Dwight Waters PLT 225 103/ul Normal 150-450 [facility] Comment on above: Performed By: #### C MP #### [facility] [address] [place] [address] Dr. Dwight Waters RBC 5.64 106/ul Normal 4.70-6.10 [facility] Comment on above: Performed By: #### C MP #### [facility] [address] [place] [address] Dr. Dwight Waters WBC 6.3 103/ul Normal 4.0-11.0 [facility] Comment on above: Performed By: #### C MP #### [facility] [address] [place] [address] Dr. Dwight Waters GGTon 12-29-2022 Gamma glutamyl transferase [Catalytic activity/Vol] 24 U/L Normal 15-85 [facility] Comment on above: Performed By: #### C MP #### [facility] [address] [place] [address] Dr. Dwight Waters LIPID PROFILEon 12-29-2022 CHOL-HDL RATIO NORM SEE BELOW Normal [facility] Comment on above: Result Comment: 3.3 - 4.4 LOW RISK 4.4 - 7.1 AVERAGE RISK 7.1 - 11.0 MODERATE RISK >11.0 HIGH RISK Performed By: #### U RTPCR #### [facility] [address] [address] [address] Dwight Waters Cholesterol [Mass/Vol] 87 mg/dL Normal <=200 [facility] Comment on above: Performed By: #### U RTPCR #### [facility] [address] [address] [address] Dwight Waters Cholesterol in HDL [Mass/Vol] 44 mg/dL Normal 40-60 [facility] Comment on above: Performed By: #### U RTPCR #### [facility] [address] [address] [address] Dwight Waters Cholesterol in LDL [Mass/Vol] 33.0 mg/dL Normal [facility] Comment on above: Performed By: #### U RTPCR #### [facility] [address] [place] [address] Dr. Dwight Waters Cholesterol.total/Ch olesterol in HDL [Mass ratio] 2.0 {ratio} Normal [facility] Comment on above: Performed By: #### U RTPCR #### [facility] [address] [address] [address] Dwight Waters HDL NORMAL > or = 60 mg/dl - LO W CARDIOVASCULAR RISK <40 mg/dl - HIGH CARDIOVASCULAR RISK Normal [facility] Comment on above: Performed By: #### U RTPCR #### [facility] [address] [place] [address] Dr. Dwight Waetrs LDL CALC NORMAL SEE BELOW Normal [facility] Comment on above: Result Comment: <100 mg/dl OPTIMAL 100 - 129 mg/dl NEAR OR ABOVE OPTIMAL 130 - 159 mg/dl BORDERLINE HIGH 160 - 189 mg/dl HIGH >190 mg/dl VERY HIGH Performed By: #### U RTPCR #### [facility] [address] [address] [address] Dwight Waters Triglyceride [Mass/Vol] 50 mg/dL Normal <=150 [facility] Comment on above: Performed By: #### U RTPCR #### [facility] [address] [address] [address] Dwight Waters VLDL CALC 10.0 mg/dL Normal [facility] Comment on above: Performed By: #### U RTPCR #### [facility] [address] [place] [address] Dr. Dwight Waters MAGNESIUMon 12-29-2022 Magnesium [Mass/Vol] 1.6 mg/dL Critically low 1.8-2.4 [facility] Comment on above: Performed By: #### C BC #### [facility] [address] [place] [address] Dr. Dwight Waters RENAL FUNCTION PANELon 12-29 Albumin [Mass/Vol] 3.9 g/dL Normal 3.4-5.0 [facility] Comment on above: Performed By: #### C BC #### [facility] [address] [place] [address] Dr. Dwight Waters Calcium [Mass/Vol] 9.2 mg/dL Normal 8.5-10.1 [facility] Comment on above: Performed By: #### C BC #### [facility] [address] [place] [address] Dr. Dwight Waters Chloride [Moles/Vol] 109 mmol/L Critically high 98-107 [facility] Comment on above: Performed By: #### C BC #### [facility] [address] [place] [address] Dr. Dwight Waters CO2 [Moles/Vol] 27.0 mmol/L Normal 21.0-32.0 [facility] Comment on above: Performed By: #### C BC #### [facility] [address] [place] [address] Dr. Dwight Waters Creatinine [Mass/Vol] 1.02 mg/dL Normal 0.70-1.30 [facility] Comment on above: Performed By: #### C BC #### [facility] [address] [place] [address] Dr. Dwgiht Waters EGFR-AF TONGAN >60 Normal >=60 [facility] Comment on above: Performed By: #### C BC #### [facility] [address] [place] [address] Dr. Dwight Waters EGFR-NON AF TONGAN >60 Normal >=60 [facility] Comment on above: Performed By: #### C BC #### [facility] [address] [address] [address] Dwight Waters Glucose [Mass/Vol] 117 mg/dL Critically high 74-106 [facility] Comment on above: Performed By: #### C BC #### [facility] [address] [address] [address] Dwight Waters Phosphate [Mass/Vol] 3.2 mg/dL Normal 2.6-4.7 [facility] Comment on above: Performed By: #### C BC #### [facility] [address] [place] [address] Dr. Dwight Waters Potassium [Moles/Vol] 4.1 mmol/L Normal 3.5-5.1 [facility] Comment on above: Performed By: #### C BC #### [facility] [address] [place] [address] Dr. Dwight Waters Sodium [Moles/Vol] 144 mmol/L Normal 136-145 [facility] Comment on above: Performed By: #### C BC #### [facility] [address] [address] [address] Dwight Waters Urea nitrogen [Mass/Vol] 13.0 mg/dL Normal 7.0-18.0 [facility] Comment on above: Performed By: #### C BC #### [facility] [address] [place] [address] Dr. Dwight Albert 12-29-2022 AST [Catalytic activity/Vol] 21 U/L Normal 15-37 [facility] Comment on above: Performed By: #### C BC #### [facility] [address] [place] [address] Dr. Dwight Osei 12-29-2022 ALT [Catalytic activity/Vol] 32 U/L Normal 16-63 [facility] Comment on above: Performed By: #### C BC #### [facility] [address] [place] [address] Dr. Dwight Waters URINE T PROTEIN CREAT RATIOo n 12-29-2022 Protein (U) [Mass/Vol] 14.3 mg/dL Critically high <=12.0 [facility] Comment on above: Performed By: #### U RTPCR #### [facility] [address] [place] [address] Dr. Dwight Waters UR PROT CREAT RAT 0.17 Normal [facility] Comment on above: Performed By: #### U RTPCR #### [facility] [address] [place] [address] Dr. Dwight Waters URINE CREAT 86.58 mg/dL Normal 20.00-300.00 [facility] Comment on above: Performed By: #### U RTPCR #### [facility] [address] [place] [address] Dr. Dwight Waters FK506 (TACROLIMUS) WHOLE BLO ODon 11-06-2022 Tacrolimus (FK506), Blood 4.9 ng/mL Normal 2.0-20.0 [facility] Comment on above: Result Comment: Trou gh (immediately following transplant) 15.0 . Trough (steady state, 2 weeks or more after transplant): 3.0 - 8.0 . Performed by LC-MS/MS technology. Performed By: #### U RTPCR #### [facility] [address] [place] [address] Dr. Dwight Waters ALKALINE PHOSPHAon ALP [Catalytic activity/Vol] 86 U/L Normal 46-116 [facility] Comment on above: Performed By: #### U RTPCR #### [facility] [address] [place] [address] Dr. Dwight Waters BILIRUBIN CONJUGATED (DIRECT )on 11-04-2022 BILI, CONJUGATED 0.2 mg/dL Normal 0.0-0.2 [facility] Comment on above: Performed By: #### U RTPCR #### [facility] [address] [place] [address] Dr. Dwight Waters BILIRUBIN TOTALon 11-04-2022 Bilirubin [Mass/Vol] 0.8 mg/dL Normal 0.2-1.0 [facility] Comment on above: Performed By: #### U RTPCR #### [facility] [address] [address] [address] Dwight Waters CBC AUTO DIFFon 11-04-2022 BASO # 0.1 103/ul Normal 0.0-0.1 [facility] Comment on above: Performed By: #### U RTPCR #### [facility] [address] [place] [address] Dr. Dwight Waters Basophils/100 WBC (Bld) 0.9 % Normal 0.2-2.0 [facility] Comment on above: Performed By: #### U RTPCR #### [facility] [address] [place] [address] Dr. Dwight Waters EO # 0.2 103/ul Normal 0.0-0.7 [facility] Comment on above: Performed By: #### U RTPCR #### [facility] [address] [place] [address] Dr. Dwight Waters Eosinophils/100 WBC (Bld) 3.7 % Normal 0.9-7.0 [facility] Comment on above: Performed By: #### U RTPCR #### [facility] [address] [place] [address] Dr. Dwight Waters Erythrocyte distribution width (RBC) [Ratio] 12.9 % Normal 11.0-15.0 [facility] Comment on above: Performed By: #### U RTPCR #### [facility] [address] [place] [address] Dr. Dwight Waters Hematocrit (Bld) [Volume fraction] 48.3 % Normal 42.0-54.0 [facility] Comment on above: Performed By: #### U RTPCR #### [facility] [address] [place] [address] Dr. Dwight Waters Hemoglobin (Bld) [Mass/Vol] 15.6 g/dL Normal 14.0-18.0 [facility] Comment on above: Performed By: #### U RTPCR #### [facility] [address] [place] [address] Dr. Dwight Waters IG # 0.01 10e3/ul Normal 0.00-0.03 [facility] Comment on above: Performed By: #### U RTPCR #### [facility] [address] [place] [address] Dr. Dwight Waters IG % 0.2 % Normal 0.0-0.5 [facility] Comment on above: Performed By: #### U RTPCR #### [facility] [address] [place] [address] Dr. Dwight Waters LYMPH # 1.9 103/ul Normal 1.2-3.8 [facility] Comment on above: Performed By: #### U RTPCR #### [facility] [address] [place] [address] Dr. Dwight Waters Lymphocytes/100 WBC (Bld) 33.0 % Normal 20.5-60.0 [facility] Comment on above: Performed By: #### U RTPCR #### [facility] [address] [place] [address] Dr. Dwight Waters MANUAL DIFF REQ NO Normal [facility] Comment on above: Performed By: #### U RTPCR #### [facility] [address] [place] [address] Dr. Dwight Waters MCH (RBC) [Entitic mass] 27.6 pg Normal 25.9-34.0 [facility] Comment on above: Performed By: #### U RTPCR #### [facility] [address] [place] [address] Dr. Dwight Waters MCHC (RBC) [Mass/Vol] 32.3 g/dL Normal 29.9-35.2 [facility] Comment on above: Performed By: #### U RTPCR #### [facility] [address] [place] [address] Dr. Dwight Waters MCV (RBC) [Entitic vol] 85.5 fL Normal 80.0-94.0 [facility] Comment on above: Performed By: #### U RTPCR #### [facility] [address] [place] [address] Dr. Dwight Waters MONO # 0.5 103/ul Normal 0.3-0.8 [facility] Comment on above: Performed By: #### U RTPCR #### [facility] [address] [address] [address] Dwight Waters Monocytes/100 WBC (Bld) 8.8 % Normal 1.7-12.0 [facility] Comment on above: Performed By: #### U RTPCR #### [facility] [address] [place] [address] Dr. Dwight Waters NEUT # 3.1 103/ul Normal 1.4-6.5 [facility] Comment on above: Performed By: #### U RTPCR #### [facility] [address] [place] [address] Dr. Dwight Waters Neutrophils/100 WBC (Bld) 53.4 % Normal 43.0-75.0 [facility] Comment on above: Performed By: #### U RTPCR #### [facility] [address] [place] [address] Dr. Dwight Waters Platelet mean volume (Bld) [Entitic vol] 9.2 fL Critically low 9.5-13.5 [facility] Comment on above: Performed By: #### U RTPCR #### [facility] [address] [place] [address] Dr. Dwight Waters PLT 255 103/ul Normal 150-450 [facility] Comment on above: Performed By: #### U RTPCR #### [facility] [address] [place] [address] Dr. Dwight Waters RBC 5.65 106/ul Normal 4.70-6.10 [facility] Comment on above: Performed By: #### U RTPCR #### [facility] [address] [place] [address] Dr. Dwight Waters WBC 5.7 103/ul Normal 4.0-11.0 [facility] Comment on above: Performed By: #### U RTPCR #### [facility] [address] [place] [address] Dr. Dwight Waters GGTon 11-04-2022 Gamma glutamyl transferase [Catalytic activity/Vol] 22 U/L Normal 15-85 [facility] Comment on above: Performed By: #### U RTPCR #### [facility] [address] [place] [address] Dr. Dwight Waters MAGNESIUMon 11-04-2022 Magnesium [Mass/Vol] 1.8 mg/dL Normal 1.8-2.4 [facility] Comment on above: Performed By: #### U RTPCR #### [facility] [address] [place] [address] Dr. Dwight Waters RENAL FUNCTION PANELon 11-04 Albumin [Mass/Vol] 3.8 g/dL Normal 3.4-5.0 [facility] Comment on above: Performed By: #### U RTPCR #### [facility] [address] [place] [address] Dr. Dwight Waters Calcium [Mass/Vol] 9.3 mg/dL Normal 8.5-10.1 [facility] Comment on above: Performed By: #### U RTPCR #### [facility] [address] [place] [address] Dr. Dwight Waters Chloride [Moles/Vol] 107 mmol/L Normal 98-107 [facility] Comment on above: Performed By: #### U RTPCR #### [facility] [address] [place] [address] Dr. Dwight Waters CO2 [Moles/Vol] 29.2 mmol/L Normal 21.0-32.0 [facility] Comment on above: Performed By: #### U RTPCR #### [facility] [address] [place] [address] Dr. Dwight Waters Creatinine [Mass/Vol] 1.07 mg/dL Normal 0.70-1.30 [facility] Comment on above: Performed By: #### U RTPCR #### [facility] [address] [place] [address] Dr. Dwight Waters EGFR-AF TONGAN >60 Normal >=60 [facility] Comment on above: Performed By: #### U RTPCR #### [facility] [address] [place] [address] Dr. Dwight Waters EGFR-NON AF TONGAN >60 Normal >=60 [facility] Comment on above: Performed By: #### U RTPCR #### [facility] [address] [address] [address] Dwight Waters Glucose [Mass/Vol] 106 mg/dL Normal 74-106 [facility] Comment on above: Performed By: #### U RTPCR #### [facility] [address] [address] [address] Dwight Waters Phosphate [Mass/Vol] 2.8 mg/dL Normal 2.6-4.7 [facility] Comment on above: Performed By: #### U RTPCR #### [facility] [address] [place] [address] Dr. Dwight Waters Potassium [Moles/Vol] 4.1 mmol/L Normal 3.5-5.1 [facility] Comment on above: Performed By: #### U RTPCR #### [facility] [address] [place] [address] Dr. Dwight Waters Sodium [Moles/Vol] 143 mmol/L Normal 136-145 [facility] Comment on above: Performed By: #### U RTPCR #### [facility] [address] [place] [address] Dr. Dwight Waters Urea nitrogen [Mass/Vol] 12.0 mg/dL Normal 7.0-18.0 [facility] Comment on above: Performed By: #### U RTPCR #### [facility] [address] [place] [address] Dr. Dwight Albert 11-04-2022 AST [Catalytic activity/Vol] 19 U/L Normal 15-37 [facility] Comment on above: Performed By: #### U RTPCR #### [facility] [address] [place] [address] Dr. Dwight Osei 11-04-2022 ALT [Catalytic activity/Vol] 28 U/L Normal 16-63 [facility] Comment on above: Performed By: #### U RTPCR #### [facility] [address] [place] [address] Dr. Dwight Waters URINE T PROTEIN CREAT RATIOo n 12-06-2022 Protein (U) [Mass/Vol] 10.7 mg/dL Normal <=12.0 [facility] Comment on above: Performed By: #### U RTPCR #### [facility] [address] [place] [address] Dr. Dwight Waters UR PROT CREAT RAT 0.13 Normal [facility] Comment on above: Performed By: #### U RTPCR #### [facility] [address] [place] [address] Dr. Dwight Waters URINE CREAT 84.50 mg/dL Normal 20.00-300.00 [facility] Comment on above: Performed By: #### U RTPCR #### [facility] [address] [place] [address] Dr. Dwight Waters FK506 (TACROLIMUS) WHOLE BLO ODon 09-18-2022 Tacrolimus (FK506), Blood 4.6 ng/mL Normal 2.0-20.0 [facility] Comment on above: Result Comment: Trou gh (immediately following transplant) 15.0 . Trough (steady state, 2 weeks or more after transplant): 3.0 - 8.0 . Performed by LC-MS/MS technology. Performed By: #### U RTPCR #### [facility] [address] [place] [address] Dr. Dwight Waters BK VIRUS PCR QUANTon 022 BKV DNA QUANT PCR PLASMA Negative Normal Negative [facility] Comment on above: Result Comment: No B K DNA detected. . The linear range of the assay is 22 - 100,000,000 IU/mL. Performed By: #### U RTPCR #### [facility] [address] [place] [address] Dr. Dwight Waters Log10 BKV DNA Plasma Normal [facility] Comment on above: Performed By: #### U RTPCR #### [facility] [address] [place] [address] Dr. Dwight Waters ALKALINE PHOSPHAon 2 ALP [Catalytic activity/Vol] 92 U/L Normal 46-116 [facility] Comment on above: Performed By: #### U RTPCR #### [facility] [address] [place] [address] Dr. Dwight Waters BILIRUBIN CONJUGATED (DIRECT )on 09-15-2022 BILI, CONJUGATED 0.3 mg/dL Critically high 0.0-0.2 [facility] Comment on above: Performed By: #### U RTPCR #### [facility] [address] [place] [address] Dr. Dwight Waters BILIRUBIN TOTALon 09-15-2022 Bilirubin [Mass/Vol] 1.1 mg/dL Critically high 0.2-1.0 [facility] Comment on above: Performed By: #### U RTPCR #### [facility] [address] [place] [address] Dr. Dwight Waters CBC AUTO DIFFon 09-15-2022 BASO # 0.1 103/ul Normal 0.0-0.1 [facility] Comment on above: Performed By: #### C BC #### [facility] [address] [place] [address] Dr. Dwight Waters Basophils/100 WBC (Bld) 0.8 % Normal 0.2-2.0 [facility] Comment on above: Performed By: #### C BC #### [facility] [address] [place] [address] Dr. Dwight Waters EO # 0.2 103/ul Normal 0.0-0.7 [facility] Comment on above: Performed By: #### C BC #### [facility] [address] [place] [address] Dr. Dwight Waters Eosinophils/100 WBC (Bld) 3.5 % Normal 0.9-7.0 [facility] Comment on above: Performed By: #### C BC #### [facility] [address] [place] [address] Dr. Dwight Waters Erythrocyte distribution width (RBC) [Ratio] 13.0 % Normal 11.0-15.0 [facility] Comment on above: Performed By: #### C BC #### [facility] [address] [place] [address] Dr. Dwight Waters Hematocrit (Bld) [Volume fraction] 50.0 % Normal 42.0-54.0 [facility] Comment on above: Performed By: #### C BC #### [facility] [address] [place] [address] Dr. Dwight Waters Hemoglobin (Bld) [Mass/Vol] 16.0 g/dL Normal 14.0-18.0 [facility] Comment on above: Performed By: #### C BC #### [facility] [address] [place] [address] Dr. Dwight Waters IG # 0.02 10e3/ul Normal 0.00-0.03 [facility] Comment on above: Performed By: #### C BC #### [facility] [address] [place] [address] Dr. Dwight Waters IG % 0.3 % Normal 0.0-0.5 [facility] Comment on above: Performed By: #### C BC #### [facility] [address] [place] [address] Dr. Dwight Waters LYMPH # 1.8 103/ul Normal 1.2-3.8 [facility] Comment on above: Performed By: #### C BC #### [facility] [address] [place] [address] Dr. Dwight Waters Lymphocytes/100 WBC (Bld) 26.5 % Normal 20.5-60.0 [facility] Comment on above: Performed By: #### C BC #### [facility] [address] [place] [address] Dr. Dwight Waters MANUAL DIFF REQ NO Normal [facility] Comment on above: Performed By: #### C BC #### [facility] [address] [place] [address] Dr. Dwight Waters MCH (RBC) [Entitic mass] 28.1 pg Normal 25.9-34.0 [facility] Comment on above: Performed By: #### C BC #### [facility] [address] [place] [address] Dr. Dwight Waters MCHC (RBC) [Mass/Vol] 32.0 g/dL Normal 29.9-35.2 [facility] Comment on above: Performed By: #### C BC #### [facility] [address] [address] [address] Dwight Waters MCV (RBC) [Entitic vol] 87.9 fL Normal 80.0-94.0 [facility] Comment on above: Performed By: #### C BC #### [facility] [address] [address] [address] Dwight Waters MONO # 0.5 103/ul Normal 0.3-0.8 [facility] Comment on above: Performed By: #### C BC #### [facility] [address] [address] [address] Dwight Waters Monocytes/100 WBC (Bld) 8.1 % Normal 1.7-12.0 [facility] Comment on above: Performed By: #### C BC #### [facility] [address] [place] [address] Dr. Dwight Waters NEUT # 4.0 103/ul Normal 1.4-6.5 [facility] Comment on above: Performed By: #### C BC #### [facility] [address] [place] [address] Dr. Dwight Waters Neutrophils/100 WBC (Bld) 60.8 % Normal 43.0-75.0 [facility] Comment on above: Performed By: #### C BC #### [facility] [address] [place] [address] Dr. Dwight Waters Platelet mean volume (Bld) [Entitic vol] 9.4 fL Critically low 9.5-13.5 [facility] Comment on above: Performed By: #### C BC #### [facility] [address] [place] [address] Dr. Dwight Waters PLT 265 103/ul Normal 150-450 [facility] Comment on above: Performed By: #### C BC #### [facility] [address] [place] [address] Dr. Dwight Waters RBC 5.69 106/ul Normal 4.70-6.10 [facility] Comment on above: Performed By: #### C BC #### [facility] [address] [address] [address] Dwight Waters WBC 6.6 103/ul Normal 4.0-11.0 [facility] Comment on above: Performed By: #### C BC #### [facility] [address] [place] [address] Dr. Dwight Waters GGTon 09-15-2022 Gamma glutamyl transferase [Catalytic activity/Vol] 23 U/L Normal 15-85 [facility] Comment on above: Performed By: #### U RTPCR #### [facility] [address] [place] [address] Dr. Dwight Waters MAGNESIUMon 09-15-2022 Magnesium [Mass/Vol] 1.8 mg/dL Normal 1.8-2.4 [facility] Comment on above: Performed By: #### U RTPCR #### [facility] [address] [place] [address] Dr. Dwight Waters RENAL FUNCTION PANELon 09-15 Albumin [Mass/Vol] 4.1 g/dL Normal 3.4-5.0 [facility] Comment on above: Performed By: #### C BC #### [facility] [address] [place] [address] Dr. Dwight Waters Calcium [Mass/Vol] 9.3 mg/dL Normal 8.5-10.1 [facility] Comment on above: Performed By: #### C BC #### [facility] [address] [place] [address] Dr. Dwight Waters Chloride [Moles/Vol] 107 mmol/L Normal 98-107 [facility] Comment on above: Performed By: #### C BC #### [facility] [address] [place] [address] Dr. Dwight Waters CO2 [Moles/Vol] 25.6 mmol/L Normal 21.0-32.0 [facility] Comment on above: Performed By: #### C BC #### [facility] [address] [place] [address] Dr. Dwight Waters Creatinine [Mass/Vol] 1.01 mg/dL Normal 0.70-1.30 [facility] Comment on above: Performed By: #### C BC #### [facility] [address] [address] [address] Dwight Waters EGFR-AF TONGAN >60 Normal >=60 [facility] Comment on above: Performed By: #### C BC #### [facility] [address] [address] [address] Dwight Waters EGFR-NON AF TONGAN >60 Normal >=60 [facility] Comment on above: Performed By: #### C BC #### [facility] [address] [address] [address] Dwight Waters Glucose [Mass/Vol] 119 mg/dL Critically high 74-106 [facility] Comment on above: Performed By: #### C BC #### [facility] [address] [place] [address] Dr. Dwight Waters Phosphate [Mass/Vol] 2.8 mg/dL Normal 2.6-4.7 [facility] Comment on above: Performed By: #### C BC #### [facility] [address] [place] [address] Dr. Dwight Waters Potassium [Moles/Vol] 4.0 mmol/L Normal 3.5-5.1 [facility] Comment on above: Performed By: #### C BC #### [facility] [address] [place] [address] Dr. Dwight Waters Sodium [Moles/Vol] 141 mmol/L Normal 136-145 [facility] Comment on above: Performed By: #### C BC #### [facility] [address] [place] [address] Dr. Dwight Waters Urea nitrogen [Mass/Vol] 15.0 mg/dL Normal 7.0-18.0 [facility] Comment on above: Performed By: #### C BC #### [facility] [address] [place] [address] Dr. Dwight Waters SGOTon 09-15-2022 AST [Catalytic activity/Vol] 18 U/L Normal 15-37 [facility] Comment on above: Performed By: #### U RTPCR #### [facility] [address] [address] [address] Dwight Waters SGPTon 09-15-2022 ALT [Catalytic activity/Vol] 32 U/L Normal 16-63 [facility] Comment on above: Performed By: #### C BC #### [facility] [address] [place] [address] Dr. Dwight Waters URINE T PROTEIN CREAT RATIOo n 09-15-2022 Protein (U) [Mass/Vol] 14.1 mg/dL Critically high <=12.0 [facility] Comment on above: Performed By: #### U RTPCR #### [facility] [address] [place] [address] Dr. Dwight Waters UR PROT CREAT RAT 0.14 Normal [facility] Comment on above: Performed By: #### U RTPCR #### [facility] [address] [place] [address] Dr. Dwight Waters URINE CREAT 98.89 mg/dL Normal 20.00-300.00 [facility] Comment on above: Performed By: #### U RTPCR #### [facility] [address] [place] [address] Dr. Dwight Waters US CAROTID ART BILon [...] JIMENEZ Date: 2022-08-28 13:20 Normal [facility] FK506 (TACROLIMUS) WHOLE BLO ODon 08-17-2022 Tacrolimus (FK506), Blood 9.9 ng/mL Normal 2.0-20.0 [facility] Comment on above: Result Comment: Trou gh (immediately following transplant) 15.0 . Trough (steady state, 2 weeks or more after transplant): 3.0 - 8.0 . Performed by LC-MS/MS technology. Performed By: #### F [id number] #### [facility] [address] [place] [address] Dr. Dwight Waters BK VIRUS PCR QUANTon 022 BKV DNA QUANT PCR PLASMA Negative Normal Negative [facility] Comment on above: Result Comment: No B K DNA detected. . The linear range of the assay is 22 - 100,000,000 IU/mL. Performed By: #### U RTPCR #### [facility] [address] [place] [address] Dr. Dwight Wtaers Log10 BKV DNA Plasma Normal [facility] Comment on above: Performed By: #### U RTPCR #### [facility] [address] [place] [address] Dr. Dwight Waters ALBUMINon 08-14-2022 Albumin [Mass/Vol] 4.2 g/dL Normal 3.4-5.0 [facility] Comment on above: Performed By: #### F [id number] #### [facility] [address] [place] [address] Dr. Dwight Waters ALKALINE PHOSPHAon ALP [Catalytic activity/Vol] 92 U/L Normal 46-116 [facility] Comment on above: Performed By: #### C BC #### [facility] [address] [place] [address] Dr. Dwight Waters BILIRUBIN CONJUGATED (DIRECT )on 08-14-2022 BILI, CONJUGATED 0.3 mg/dL Critically high 0.0-0.2 [facility] Comment on above: Performed By: #### F [id number] #### [facility] [address] [place] [address] Dr. Dwight Waters BILIRUBIN TOTALon 08-14-2022 Bilirubin [Mass/Vol] 1.5 mg/dL Critically high 0.2-1.0 [facility] Comment on above: Performed By: #### F [id number] #### [facility] [address] [place] [address] Dr. Dwight Waters BUNon 08-14-2022 Urea nitrogen [Mass/Vol] 11.0 mg/dL Normal 7.0-18.0 [facility] Comment on above: Performed By: #### C BC #### [facility] [address] [place] [address] Dr. Dwight Waters CALCIUMon 08-14-2022 Calcium [Mass/Vol] 9.4 mg/dL Normal 8.5-10.1 [facility] Comment on above: Performed By: #### F [id number] #### [facility] [address] [place] [address] Dr. Dwight Waters CBC AUTO DIFFon 08-14-2022 BASO # 0.0 103/ul Normal 0.0-0.1 [facility] Comment on above: Performed By: #### C MP #### [facility] [address] [place] [address] Dr. Dwight Waters Basophils/100 WBC (Bld) 0.5 % Normal 0.2-2.0 [facility] Comment on above: Performed By: #### C MP #### [facility] [address] [place] [address] Dr. Dwight Waters EO # 0.2 103/ul Normal 0.0-0.7 [facility] Comment on above: Performed By: #### C MP #### [facility] [address] [place] [address] Dr. Dwight Waters Eosinophils/100 WBC (Bld) 2.6 % Normal 0.9-7.0 [facility] Comment on above: Performed By: #### C MP #### [facility] [address] [place] [address] Dr. Dwight Waters Erythrocyte distribution width (RBC) [Ratio] 13.1 % Normal 11.0-15.0 [facility] Comment on above: Performed By: #### C MP #### [facility] [address] [place] [address] Dr. Dwight Waters Hematocrit (Bld) [Volume fraction] 47.0 % Normal 42.0-54.0 [facility] Comment on above: Performed By: #### C MP #### [facility] [address] [place] [address] Dr. Dwight Waters Hemoglobin (Bld) [Mass/Vol] 15.3 g/dL Normal 14.0-18.0 [facility] Comment on above: Performed By: #### C MP #### [facility] [address] [place] [address] Dr. Dwight Waters IG # 0.01 10e3/ul Normal 0.00-0.03 [facility] Comment on above: Performed By: #### C MP #### [facility] [address] [place] [address] Dr. Dwight Waters IG % 0.1 % Normal 0.0-0.5 [facility] Comment on above: Performed By: #### C MP #### [facility] [address] [place] [address] Dr. Dwight Waters LYMPH # 2.3 103/ul Normal 1.2-3.8 [facility] Comment on above: Performed By: #### C MP #### [facility] [address] [place] [address] Dr. Dwight Waters Lymphocytes/100 WBC (Bld) 29.8 % Normal 20.5-60.0 [facility] Comment on above: Performed By: #### C MP #### [facility] [address] [place] [address] Dr. Dwight Waters MANUAL DIFF REQ NO Normal [facility] Comment on above: Performed By: #### C MP #### [facility] [address] [place] [address] Dr. Dwight Waters MCH (RBC) [Entitic mass] 28.2 pg Normal 25.9-34.0 [facility] Comment on above: Performed By: #### C MP #### [facility] [address] [place] [address] Dr. Dwight Waters MCHC (RBC) [Mass/Vol] 32.6 g/dL Normal 29.9-35.2 [facility] Comment on above: Performed By: #### C MP #### [facility] [address] [place] [address] Dr. Dwight Waters MCV (RBC) [Entitic vol] 86.7 fL Normal 80.0-94.0 [facility] Comment on above: Performed By: #### C MP #### [facility] [address] [address] [address] Dwight Waters MONO # 0.7 103/ul Normal 0.3-0.8 [facility] Comment on above: Performed By: #### C MP #### [facility] [address] [address] [address] Dwight Waters Monocytes/100 WBC (Bld) 8.5 % Normal 1.7-12.0 [facility] Comment on above: Performed By: #### C MP #### [facility] [address] [place] [address] Dr. Dwight Waters NEUT # 4.5 103/ul Normal 1.4-6.5 [facility] Comment on above: Performed By: #### C MP #### [facility] [address] [place] [address] Dr. Dwight Waters Neutrophils/100 WBC (Bld) 58.5 % Normal 43.0-75.0 [facility] Comment on above: Performed By: #### C MP #### [facility] [address] [place] [address] Dr. Dwight Waters Platelet mean volume (Bld) [Entitic vol] 9.7 fL Normal 9.5-13.5 [facility] Comment on above: Performed By: #### C MP #### [facility] [address] [place] [address] Dr. Dwight Waters PLT 266 103/ul Normal 150-450 [facility] Comment on above: Performed By: #### C MP #### [facility] [address] [place] [address] Dr. Dwight Waters RBC 5.42 106/ul Normal 4.70-6.10 [facility] Comment on above: Performed By: #### C MP #### [facility] [address] [place] [address] Dr. Dwight Waters WBC 7.6 103/ul Normal 4.0-11.0 [facility] Comment on above: Performed By: #### C MP #### [facility] [address] [place] [address] Dr. Dwight Waters CHLORIDEon 08-14-2022 Chloride [Moles/Vol] 104 mmol/L Normal 98-107 [facility] Comment on above: Performed By: #### C BC #### [facility] [address] [place] [address] Dr. Dwight Waters CO2on 08-14-2022 CO2 [Moles/Vol] 27.9 mmol/L Normal 21.0-32.0 [facility] Comment on above: Performed By: #### C BC #### [facility] [address] [place] [address] Dr. Dwight Waters CREATININEon 08-14-2022 Creatinine [Mass/Vol] 1.08 mg/dL Normal 0.70-1.30 [facility] Comment on above: Performed By: #### C BC #### [facility] [address] [place] [address] Dr. Dwight Waters EGFR-AF TONGAN >60 Normal >=60 [facility] Comment on above: Performed By: #### C BC #### [facility] [address] [place] [address] Dr. Dwight Waters EGFR-NON AF TONGAN >60 Normal >=60 [facility] Comment on above: Performed By: #### C BC #### [facility] [address] [place] [address] Dr. Dwight Waters GGTon 08-14-2022 Gamma glutamyl transferase [Catalytic activity/Vol] 24 U/L Normal 15-85 [facility] Comment on above: Performed By: #### F [id number] #### [facility] [address] [place] [address] Dr. Dwight Waters GLUCOSE BLOODon 08-14-2022 Glucose [Mass/Vol] 111 mg/dL Critically high 74-106 [facility] Comment on above: Performed By: #### C BC #### [facility] [address] [place] [address] Dr. Dwight Waters MAGNESIUMon 08-14-2022 Magnesium [Mass/Vol] 1.4 mg/dL Critically low 1.8-2.4 [facility] Comment on above: Performed By: #### C BC #### [facility] [address] [place] [address] Dr. Dwight Waters NAandrzej 08-14-2022 Sodium [Moles/Vol] 140 mmol/L Normal 136-145 [facility] Comment on above: Performed By: #### F [id number] #### [facility] [address] [place] [address] Dr. Dwight Waters PHOSPHORUSon 08-14-2022 Phosphate [Mass/Vol] 3.1 mg/dL Normal 2.6-4.7 [facility] Comment on above: Performed By: #### C BC #### [facility] [address] [place] [address] Dr. Dwight Waters POTASSIUMon 08-14-2022 Potassium [Moles/Vol] 3.5 mmol/L Normal 3.5-5.1 [facility] Comment on above: Performed By: #### C BC #### [facility] [address] [place] [address] Dr. Dwight OLVERAOToamanda 08-14-2022 AST [Catalytic activity/Vol] 17 U/L Normal 15-37 [facility] Comment on above: Performed By: #### F [id number] #### [facility] [address] [place] [address] Dr. Dwight Waters SGPTon 08-14-2022 ALT [Catalytic activity/Vol] 22 U/L Normal 16-63 [facility] Comment on above: Performed By: #### F [id number] #### [facility] [address] [place] [address] Dr. Dwight Waters URINE T PROTEIN CREAT RATIOo n 08-14-2022 Protein (U) [Mass/Vol] 10.7 mg/dL Normal <=12.0 [facility] Comment on above: Performed By: #### F [id number] #### [facility] [address] [place] [address] Dr. Dwight Waters UR PROT CREAT RAT 0.10 Normal [facility] Comment on above: Performed By: #### F [id number] #### [facility] [address] [address] [address] Dwight Waters URINE CREAT 104.28 mg/dL Normal 20.00-300.00 [facility] Comment on above: Performed By: #### F [id number] #### [facility] [address] [address] [address] Dwight Waters NEPHROSTOMY TUBE REMOVALon 0 07-07-2022 Radiology Study observation (narrative) [facility] Ryan Yepez MD 07/07/2022 3:45 PM NEPHROSTOMY [...] Assisting physician present for entire procedure: yes [facility] FK506 (TACROLIMUS) WHOLE BLO ODon 07-06-2022 Tacrolimus (FK506), Blood 9.5 ng/mL Normal 2.0-20.0 [facility] Comment on above: Result Comment: Trou gh (immediately following transplant) 15.0 . Trough (steady state, 2 weeks or more after transplant): 3.0 - 8.0 . Performed by LC-MS/MS technology. Performed By: #### C MP #### [facility] [address] [place] [address] Dr. Dwight Waters ALBUMINon 07-03-2022 Albumin [Mass/Vol] 3.7 g/dL Normal 3.4-5.0 [facility] Comment on above: Performed By: #### U RTPCR #### [facility] [address] [place] [address] Dr. Dwight Waters ALKALINE PHOSPHAon ALP [Catalytic activity/Vol] 76 U/L Normal 46-116 [facility] Comment on above: Performed By: #### U RTPCR #### [facility] [address] [place] [address] Dr. Dwight Waters BILIRUBIN CONJUGATED (DIRECT )on 07-03-2022 BILI, CONJUGATED 0.3 mg/dL Critically high 0.0-0.2 [facility] Comment on above: Performed By: #### C BC #### [facility] [address] [place] [address] Dr. Dwight Waters BILIRUBIN TOTALon 07-03-2022 Bilirubin [Mass/Vol] 1.4 mg/dL Critically high 0.2-1.0 [facility] Comment on above: Performed By: #### C BC #### [facility] [address] [place] [address] Dr. Dwight Waters BUNon 07-03-2022 Urea nitrogen [Mass/Vol] 15.0 mg/dL Normal 7.0-18.0 [facility] Comment on above: Performed By: #### C BC #### [facility] [address] [place] [address] Dr. Dwight Waters CALCIUMon 07-03-2022 Calcium [Mass/Vol] 9.4 mg/dL Normal 8.5-10.1 [facility] Comment on above: Performed By: #### U RTPCR #### [facility] [address] [place] [address] Dr. Dwight Waters CBC AUTO DIFFon 07-03-2022 BASO # 0.0 103/ul Normal 0.0-0.1 [facility] Comment on above: Performed By: #### U RTPCR #### [facility] [address] [place] [address] Dr. Dwight Waters Basophils/100 WBC (Bld) 0.6 % Normal 0.2-2.0 [facility] Comment on above: Performed By: #### U RTPCR #### [facility] [address] [place] [address] Dr. Dwight Waters EO # 0.2 103/ul Normal 0.0-0.7 [facility] Comment on above: Performed By: #### U RTPCR #### [facility] [address] [place] [address] Dr. Dwight Waters Eosinophils/100 WBC (Bld) 3.5 % Normal 0.9-7.0 [facility] Comment on above: Performed By: #### U RTPCR #### [facility] [address] [place] [address] Dr. Dwight Waters Erythrocyte distribution width (RBC) [Ratio] 12.9 % Normal 11.0-15.0 [facility] Comment on above: Performed By: #### U RTPCR #### [facility] [address] [place] [address] Dr. Dwight Waters Hematocrit (Bld) [Volume fraction] 44.2 % Normal 42.0-54.0 [facility] Comment on above: Performed By: #### U RTPCR #### [facility] [address] [place] [address] Dr. Dwight Waters Hemoglobin (Bld) [Mass/Vol] 14.6 g/dL Normal 14.0-18.0 [facility] Comment on above: Performed By: #### U RTPCR #### [facility] [address] [place] [address] Dr. Dwight Waters IG # 0.02 10e3/ul Normal 0.00-0.03 [facility] Comment on above: Performed By: #### U RTPCR #### [facility] [address] [place] [address] Dr. Dwight Waters IG % 0.3 % Normal 0.0-0.5 [facility] Comment on above: Performed By: #### U RTPCR #### [facility] [address] [place] [address] Dr. wDight Waters LYMPH # 2.0 103/ul Normal 1.2-3.8 [facility] Comment on above: Performed By: #### U RTPCR #### [facility] [address] [place] [address] Dr. Dwight Waters Lymphocytes/100 WBC (Bld) 28.4 % Normal 20.5-60.0 [facility] Comment on above: Performed By: #### U RTPCR #### [facility] [address] [place] [address] Dr. Dwight Waters MANUAL DIFF REQ NO Normal [facility] Comment on above: Performed By: #### U RTPCR #### [facility] [address] [place] [address] Dr. Dwight Waters MCH (RBC) [Entitic mass] 28.6 pg Normal 25.9-34.0 [facility] Comment on above: Performed By: #### U RTPCR #### [facility] [address] [place] [address] Dr. Dwight Waters MCHC (RBC) [Mass/Vol] 33.0 g/dL Normal 29.9-35.2 [facility] Comment on above: Performed By: #### U RTPCR #### [facility] [address] [place] [address] Dr. Dwight Waters MCV (RBC) [Entitic vol] 86.7 fL Normal 80.0-94.0 [facility] Comment on above: Performed By: #### U RTPCR #### [facility] [address] [place] [address] Dr. Dwight Waters MONO # 0.6 103/ul Normal 0.3-0.8 [facility] Comment on above: Performed By: #### U RTPCR #### [facility] [address] [place] [address] Dr. Dwight Waters Monocytes/100 WBC (Bld) 9.1 % Normal 1.7-12.0 [facility] Comment on above: Performed By: #### U RTPCR #### [facility] [address] [address] [address] Dwight Waters NEUT # 4.0 103/ul Normal 1.4-6.5 [facility] Comment on above: Performed By: #### U RTPCR #### [facility] [address] [address] [address] Dwight Waters Neutrophils/100 WBC (Bld) 58.1 % Normal 43.0-75.0 [facility] Comment on above: Performed By: #### U RTPCR #### [facility] [address] [place] [address] Dr. Dwight Waters Platelet mean volume (Bld) [Entitic vol] 9.5 fL Normal 9.5-13.5 [facility] Comment on above: Performed By: #### U RTPCR #### [facility] [address] [place] [address] Dr. Dwight Waters PLT 292 103/ul Normal 150-450 [facility] Comment on above: Performed By: #### U RTPCR #### [facility] [address] [place] [address] Dr. Dwight Waters RBC 5.10 106/ul Normal 4.70-6.10 [facility] Comment on above: Performed By: #### U RTPCR #### [facility] [address] [place] [address] Dr. Dwight Waters WBC 6.9 103/ul Normal 4.0-11.0 [facility] Comment on above: Performed By: #### U RTPCR #### [facility] [address] [place] [address] Dr. Dwight Waters CHLORIDEon 07-03-2022 Chloride [Moles/Vol] 108 mmol/L Critically high 98-107 [facility] Comment on above: Performed By: #### C BC #### [facility] [address] [place] [address] Dr. Dwight Waters CO2on 07-03-2022 CO2 [Moles/Vol] 25.2 mmol/L Normal 21.0-32.0 [facility] Comment on above: Performed By: #### C BC #### [facility] [address] [place] [address] Dr. Dwight Waters CREATININEon 07-03-2022 Creatinine [Mass/Vol] 1.03 mg/dL Normal 0.70-1.30 [facility] Comment on above: Performed By: #### U RTPCR #### [facility] [address] [place] [address] Dr. Dwight Waters EGFR-AF TONGAN >60 Normal >=60 [facility] Comment on above: Performed By: #### U RTPCR #### [facility] [address] [place] [address] Dr. Dwight Waters EGFR-NON AF TONGAN >60 Normal >=60 [facility] Comment on above: Performed By: #### U RTPCR #### [facility] [address] [place] [address] Dr. Dwight Waters GGTon 07-03-2022 Gamma glutamyl transferase [Catalytic activity/Vol] 31 U/L Normal 15-85 [facility] Comment on above: Performed By: #### U RTPCR #### [facility] [address] [place] [address] Dr. Dwight Waters GLUCOSE BLOODon 07-03-2022 Glucose [Mass/Vol] 119 mg/dL Critically high 74-106 [facility] Comment on above: Performed By: #### U RTPCR #### [facility] [address] [place] [address] Dr. Dwight Waters MAGNESIUMon 07-03-2022 Magnesium [Mass/Vol] 1.4 mg/dL Critically low 1.8-2.4 [facility] Comment on above: Performed By: #### C BC #### [facility] [address] [place] [address] Dr. Dwight Waters NAon 07-03-2022 Sodium [Moles/Vol] 142 mmol/L Normal 136-145 [facility] Comment on above: Performed By: #### C MP #### [facility] [address] [place] [address] Dr. Dwight Waters PHOSPHORUSon 07-03-2022 Phosphate [Mass/Vol] 3.4 mg/dL Normal 2.6-4.7 [facility] Comment on above: Performed By: #### C BC #### [facility] [address] [place] [address] Dr. Dwight Waters POTASSIUMon 07-03-2022 Potassium [Moles/Vol] 4.1 mmol/L Normal 3.5-5.1 [facility] Comment on above: Performed By: #### C BC #### [facility] [address] [place] [address] Dr. Dwight Waters SGOTon 07-03-2022 AST [Catalytic activity/Vol] 14 U/L Critically low 15-37 [facility] Comment on above: Performed By: #### C BC #### [facility] [address] [place] [address] Dr. Dwight Waters SGPTon 07-03-2022 ALT [Catalytic activity/Vol] 25 U/L Normal 16-63 [facility] Comment on above: Performed By: #### C BC #### [facility] [address] [place] [address] Dr. Dwight Waters US KIDNEYSon 07-03-2022 US KIDNEYS Ultrasound kidneys, bilateral HISTORY: Transplant of kidney , pain in the right lower quadrant COMPARISON: None. TECHNIQUE: Transabdominal ultrasound imaging of both kidneys was performed. FINDINGS: The [place] kidneys are diffusely echogenic and atrophic with cortical thinning. The right kidney measures 8.3 x 3.5 x 4.07 m and the left measures 9.9 x 3.8 x 3.6 cm. No hydronephrosis of the [place] kidneys. There is a renal transplant in [...] stone involving the renal transplant. 2. Atrophic [place] kidneys. 3. Normal bladder. Electronically authenticated by: ARCELIA MOIRA Date: 2022-07-03 17:22 Normal [facility] CT Abdomen and Pelvis WO geoff sosa 06-27-2022 Radiology Study observation (narrative) [facility] IMPRESSION: 1. Both [place] kidneys are atrophic with improvement in right-sided [...] Adrenals: Adrenal glands are unremarkable. Kidneys: Both [place] kidneys are atrophic. Interval improvement in right [place] kidney hydronephrosis since May 15, 2022. Status [...] Adrenals: Adrenal glands are unremarkable. Kidneys: Both [place] kidneys are atrophic. Interval improvement in right [place] kidney hydronephrosis since May 15, 2022. Status [...] aggressive osseous lesions. IMPRESSION IMPRESSION: 1. Both [place] kidneys are atrophic with improvement in right-sided hydronephrosis since May 15, 2022. 2. 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 No hydronephrosis. No discrete perinephric collection. 3. Partially imaged postsurgical changes related to prior liver transplant. 4. The bladder is decompressed, limiting evaluation. [facility]en and Pelvis WO con trastOrdered By: Gera Lu on 06-27-2022 [facility] Work Phone: CBC AUTO DIFFon 06-18-2022 BASO # 0.0 103/ul Normal 0.0-0.1 [facility] Comment on above: Performed By: #### U RTPCR #### [facility] [address] [place] [address] Dr. Dwight Waters Basophils/100 WBC (Bld) 0.5 % Normal 0.2-2.0 [facility] Comment on above: Performed By: #### U RTPCR #### [facility] [address] [place] [address] Dr. Dwight Waters EO # 0.2 103/ul Normal 0.0-0.7 [facility] Comment on above: Performed By: #### U RTPCR #### [facility] [address] [place] [address] Dr. Dwight Waters Eosinophils/100 WBC (Bld) 2.3 % Normal 0.9-7.0 [facility] Comment on above: Performed By: #### U RTPCR #### [facility] [address] [place] [address] Dr. Dwight Waters Erythrocyte distribution width (RBC) [Ratio] 12.9 % Normal 11.0-15.0 [facility] Comment on above: Performed By: #### U RTPCR #### [facility] [address] [place] [address] Dr. Dwight Waters Hematocrit (Bld) [Volume fraction] 41.2 % Critically low 42.0-54.0 [facility] Comment on above: Performed By: #### U RTPCR #### [facility] [address] [place] [address] Dr. Dwight Waters Hemoglobin (Bld) [Mass/Vol] 13.3 g/dL Critically low 14.0-18.0 [facility] Comment on above: Performed By: #### U RTPCR #### [facility] [address] [place] [address] Dr. Dwight Waters IG # 0.04 10e3/ul Critically high 0.00-0.03 [facility] Comment on above: Performed By: #### U RTPCR #### [facility] [address] [place] [address] Dr. Dwight Waters IG % 0.5 % Normal 0.0-0.5 [facility] Comment on above: Performed By: #### U RTPCR #### [facility] [address] [place] [address] Dr. Dwight Waters LYMPH # 2.0 103/ul Normal 1.2-3.8 [facility] Comment on above: Performed By: #### U RTPCR #### [facility] [address] [place] [address] Dr. Dwight Waters Lymphocytes/100 WBC (Bld) 22.9 % Normal 20.5-60.0 [facility] Comment on above: Performed By: #### U RTPCR #### [facility] [address] [place] [address] Dr. Dwight Waters MANUAL DIFF REQ NO Normal [facility] Comment on above: Performed By: #### U RTPCR #### [facility] [address] [place] [address] Dr. Dwight Waters MCH (RBC) [Entitic mass] 28.7 pg Normal 25.9-34.0 [facility] Comment on above: Performed By: #### U RTPCR #### [facility] [address] [place] [address] Dr. Dwight Waters MCHC (RBC) [Mass/Vol] 32.3 g/dL Normal 29.9-35.2 [facility] Comment on above: Performed By: #### U RTPCR #### [facility] [address] [place] [address] Dr. Dwight Waters MCV (RBC) [Entitic vol] 88.8 fL Normal 80.0-94.0 [facility] Comment on above: Performed By: #### U RTPCR #### [facility] [address] [place] [address] Dr. Dwight Waters MONO # 0.8 103/ul Normal 0.3-0.8 [facility] Comment on above: Performed By: #### U RTPCR #### [facility] [address] [place] [address] Dr. Dwight Waters Monocytes/100 WBC (Bld) 9.7 % Normal 1.7-12.0 [facility] Comment on above: Performed By: #### U RTPCR #### [facility] [address] [place] [address] Dr. Dwight Waters NEUT # 5.6 103/ul Normal 1.4-6.5 [facility] Comment on above: Performed By: #### U RTPCR #### [facility] [address] [place] [address] Dr. Dwight Waters Neutrophils/100 WBC (Bld) 64.1 % Normal 43.0-75.0 [facility] Comment on above: Performed By: #### U RTPCR #### [facility] [address] [place] [address] Dr. Dwight Waters Platelet mean volume (Bld) [Entitic vol] 10.0 fL Normal 9.5-13.5 [facility] Comment on above: Performed By: #### U RTPCR #### [facility] [address] [place] [address] Dr. Dwight Waters PLT 270 103/ul Normal 150-450 [facility] Comment on above: Performed By: #### U RTPCR #### [facility] [address] [place] [address] Dr. Dwight Waters RBC 4.64 106/ul Critically low 4.70-6.10 [facility] Comment on above: Performed By: #### U RTPCR #### [facility] [address] [place] [address] Dr. Dwight Waters WBC 8.7 103/ul Normal 4.0-11.0 [facility] Comment on above: Performed By: #### U RTPCR #### [facility] [address] [place] [address] Dr. Dwight Waters CULTURE URINEon 06-18-2022 CULTURE URINE Culture Observations : NO GROWTH. Normal [facility] Comment on above: Performed By: #### U RTPCR #### [facility] [address] [place] [address] Dr. Dwight Waters Covid-19 PCR ([facility])on 05-31 SARS-CoV-2 (COVID-19) RNA ESTELITA+probe Ql (Unsp spec) Not detected Normal NOT DETECTED [facility] Comment on above: Result Comment: When [...] for this test is supported by the [place] of Health and Human Service's declaration that [...] Performed By: #### C BC #### [facility] [address] [place] [address] Dr. Dwight Waters ER URINE PROFILEon Bilirubin Ql (U) Negative Normal NEGATIVE [facility] Comment on above: Performed By: #### U RTPCR #### [facility] [address] [place] [address] Dr. Dwight Waters Clarity (U) CLEAR Normal CLEAR [facility] Comment on above: Performed By: #### U RTPCR #### [facility] [address] [place] [address] Dr. Dwight Waters Color (U) YELLOW Normal YELLOW [facility] Comment on above: Performed By: #### U RTPCR #### [facility] [address] [place] [address] Dr. Dwight SHARMA A micrscopic examina tion will be performed if indicated. Normal [facility] Comment on above: Performed By: #### U RTPCR #### [facility] [address] [place] [address] Dr. Dwight Waters Glucose Ql (U) Negative Normal NEGATIVE [facility] Comment on above: Performed By: #### U RTPCR #### [facility] [address] [place] [address] Dr. Dwight Waters Hemoglobin Ql (U) LARGE Abnormal NEGATIVE [facility] Comment on above: Performed By: #### U RTPCR #### [facility] [address] [place] [address] Dr. Dwight Waters Ketones Ql (U) Negative Normal NEGATIVE [facility] Comment on above: Performed By: #### U RTPCR #### [facility] [address] [place] [address] Dr. Dwight Waters LEUKOCYTES TRACE Abnormal NEGATIVE [facility] Comment on above: Performed By: #### U RTPCR #### [facility] [address] [place] [address] Dr. Dwight Waters Nitrite Ql (U) Negative Normal NEGATIVE [facility] Comment on above: Performed By: #### U RTPCR #### [facility] [address] [place] [address] Dr. Dwight Waters pH (U) 6.0 [pH] Normal 5-9 [facility] Comment on above: Performed By: #### U RTPCR #### [facility] [address] [place] [address] Dr. Dwight Waters Protein (U) [Mass/Vol] 30 mg/dL Abnormal NEGATIVE/ TRACE [facility] Comment on above: Performed By: #### U RTPCR #### [facility] [address] [place] [address] Dr. Dwight Waters SPEC GRAVITY >=1.030 Abnormal 1.005-<=1.02 5 [facility] Comment on above: Performed By: #### U RTPCR #### [facility] [address] [place] [address] Dr. Dwight Waters UR MICRO IND INDICATED Normal [facility] Comment on above: Performed By: #### U RTPCR #### [facility] [address] [place] [address] Dr. Dwight Waters Urobilinogen Qn (U) 0.2 {Alyssa'U}/dL Normal 0.2 - 1. 0 [facility] Comment on above: Performed By: #### U RTPCR #### [facility] [address] [place] [address] Dr. Dwight Waters PROF 14(COMP METB)on 022 Albumin [Mass/Vol] 3.7 g/dL Normal 3.4-5.0 [facility] Comment on above: Performed By: #### C MP #### [facility] [address] [place] [address] Dr. Dwight Waters Albumin/Globulin [Mass ratio] 0.9 {ratio} Normal [facility] Comment on above: Performed By: #### C MP #### [facility] [address] [place] [address] Dr. Dwight Waters ALP [Catalytic activity/Vol] 80 U/L Normal 46-116 [facility] Comment on above: Performed By: #### C MP #### [facility] [address] [place] [address] Dr. Dwight Waters ALT [Catalytic activity/Vol] 24 U/L Normal 16-63 [facility] Comment on above: Performed By: #### C MP #### [facility] [address] [place] [address] Dr. Dwight Waters Anion gap [Moles/Vol] 12.9 mmol/L Normal [facility] Comment on above: Performed By: #### C MP #### [facility] [address] [place] [address] Dr. Dwight Waters AST [Catalytic activity/Vol] 17 U/L Normal 15-37 [facility] Comment on above: Performed By: #### C MP #### [facility] [address] [address] [address] Dwight Waters Bilirubin [Mass/Vol] 0.8 mg/dL Normal 0.2-1.0 [facility] Comment on above: Performed By: #### C MP #### [facility] [address] [address] [address] Dwight Waters Calcium [Mass/Vol] 9.4 mg/dL Normal 8.5-10.1 [facility] Comment on above: Performed By: #### C MP #### [facility] [address] [address] [address] Dwight Waters Chloride [Moles/Vol] 106 mmol/L Normal 98-107 [facility] Comment on above: Performed By: #### C MP #### [facility] [address] [address] [address] Dwight Waters CO2 [Moles/Vol] 25.3 mmol/L Normal 21.0-32.0 [facility] Comment on above: Performed By: #### C MP #### [facility] [address] [address] [address] Dwight Waters Creatinine [Mass/Vol] 1.29 mg/dL Normal 0.70-1.30 [facility] Comment on above: Performed By: #### C MP #### [facility] [address] [address] [address] Dwight Waters EGFR-AF TONGAN >60 Normal >=60 [facility] Comment on above: Performed By: #### C MP #### [facility] [address] [address] [address] Dwight Waters EGFR-NON AF TONGAN 59 mL/min/1.73m2 Critically low >=60 [facility] Comment on above: Performed By: #### C MP #### [facility] [address] [address] [address] Dwight Waters Globulin (S) [Mass/Vol] 4.2 g/dL Normal [facility] Comment on above: Performed By: #### C MP #### [facility] [address] [address] [address] Dwight Waters Glucose [Mass/Vol] 106 mg/dL Normal 74-106 [facility] Comment on above: Performed By: #### C MP #### [facility] [address] [place] [address] Dr. Dwight Waters Potassium [Moles/Vol] 4.2 mmol/L Normal 3.5-5.1 [facility] Comment on above: Performed By: #### C MP #### [facility] [address] [place] [address] Dr. Dwight Waters Protein [Mass/Vol] 7.9 g/dL Normal 6.4-8.2 [facility] Comment on above: Performed By: #### C MP #### [facility] [address] [place] [address] Dr. Dwight Waters Sodium [Moles/Vol] 140 mmol/L Normal 136-145 [facility] Comment on above: Performed By: #### C MP #### [facility] [address] [place] [address] Dr. Dwight Waters Urea nitrogen [Mass/Vol] 22.0 mg/dL Critically high 7.0-18.0 [facility] Comment on above: Performed By: #### C MP #### [facility] [address] [place] [address] Dr. Dwight Waters Urea nitrogen/Creatinine [Mass ratio] 17.1 mg/mg Normal [facility] Comment on above: Performed By: #### C MP #### [facility] [address] [place] [address] Dr. Dwight Waters URINE MICROSCOPIC ONLYon BACTERIA TRACE Abnormal NONE SEEN [facility] Comment on above: Performed By: #### U RTPCR #### [facility] [address] [place] [address] Dr. Dwight Waters Bacteria identified Cx Nom (U) INDICATED Normal [facility] Comment on above: Performed By: #### U RTPCR #### [facility] [address] [place] [address] Dr. Dwight Waters CAST NONE SEEN Normal NONE SEEN [facility] Comment on above: Performed By: #### U RTPCR #### [facility] [address] [address] [address] Dwight Waters Crystals LM Nom (Urine sed) NONE SEEN Normal NONE SEEN [facility] Comment on above: Performed By: #### U RTPCR #### [facility] [address] [place] [address] Dr. Dwight Waters Epithelial cells LM Ql (Urine sed) NONE SEEN Normal NONE SEEN /RARE [facility] Comment on above: Performed By: #### U RTPCR #### [facility] [address] [place] [address] Dr. Dwight Waters MUCOUS NONE SEEN Normal NONE SEEN [facility] Comment on above: Performed By: #### U RTPCR #### [facility] [address] [place] [address] Dr. Dwight Waters RBC 5-10 Abnormal 0-2 [facility] Comment on above: Performed By: #### U RTPCR #### [facility] [address] [place] [address] Dr. Dwight Waters WBC 10-20 Abnormal NONE SEEN [facility] Comment on above: Performed By: #### U RTPCR #### [facility] [address] [place] [address] Dr. Dwight Waters ALLOSCREEN RECIPIENT (POST T X PRA)on 06-13-2022 AB SPECIFICITY CLASS COMMENT Antibody Specificity testing performed by [employer]. cPRA calculation based on identification of HLA antibody specificities at MFI >2000 and/or presence of CREG antibodies. [facility] Comment on above: Some of the reagents used for testing in the Clinical Histocompatibility Laboratory have yet to be approved by the FDA. Our certification by CLIA to perform high complexity tests allows us to use these reagents in the context of a stringent QC program, and obviates the need for FDA approval.Testing performed by the [facility] Clinical Histocompatibility Laboratory. [facility] number: [id number]. CLIA number: [id number], Director: Carlito Merchant, PhD, D([facility]). ANTIBODY SPECIFICITY INTERPRETATION Detected [facility] CLASS I SPECIFICITIES Not detected [facility] CLASS II SPECIFICITIES Not detected [facility] HLA Ab (S) 0 % 0 [facility] EXTRA MICROon 06-13-2022 [facility] URINE CULTUREOrdered By: Jah Upton on 06-13-2022 Bacteria identified Cx Nom (Unsp spec) Growth [facility] Bacteria identified Cx Nom (Unsp spec) 10,000-50,000 CFU/mL Mixed skin shimon [facility] Comment on above: Multiple bacterial m orphotypes present. Suggest appropriate recollection if clinically indicated. [facility] CBC,PLATELETSon 06-12-2022 Erythrocyte distribution width (RBC) [Ratio] 13.0 % 10.9 - 14.3 % [facility] Hematocrit (Bld) [Volume fraction] 43.2 % 39.6 - 48.8 % [facility] Hemoglobin (Bld) [Mass/Vol] 13.9 g/dL 13.4 - 16.8 g/dL [facility] MCH (RBC) [Entitic mass] 28.7 pg 26.1 - 33.3 pg [facility] MCHC (RBC) [Mass/Vol] 32.2 g/dL 31.9 - 36.5 g/dL [facility] MCV (RBC) [Entitic vol] 89.1 fL 79.0 - 94.5 fL [facility] Platelet mean volume (Bld) [Entitic vol] 10.5 fL 8.7 - 12.3 fL [facility] Platelets (Bld) [#/Vol] 269 10*3/uL 146 - 337 K/uL [facility] RBC (Bld) [#/Vol] 4.85 10*6/uL [facility] WBC (Bld) [#/Vol] 7.68 10*3/uL 3.73 - 10. 10 K/uL [facility] CHEM 7 (LYTES,BUN,CREA,GLUC) on 06-12-2022 Anion gap [Moles/Vol] 14 mmol/L 7 - 17 mmol/L [facility] Chloride [Moles/Vol] 106 mmol/L 98 - 10 8 mmol/L [facility] CO2 [Moles/Vol] 25 mmol/L 21 - 31 mmol/L [facility] Creatinine [Mass/Vol] 1.26 mg/dL 0.70 - 1.30 mg/dL [facility] GFR/1.73 sq M.predicted CKD-EPI (S/P/Bld) [Vol rate/Area] 69 >=60 mL/min/1.73m 2 [facility] Comment on above: Reported eGFR is bas ed on the CKD-EPI 2020 equation using creatinine, age, and sex. Glucose [Mass/Vol] 83 mg/dL 70 - 99 mg/dL [facility] Osmolality Calc [[facility]olality] [facility] Potassium [Moles/Vol] 3.8 mmol/L 3.5 - 5.0 mmol/L [facility] Sodium [Moles/Vol] 141 mmol/L 135 - 145 mmol/L [facility] Urea nitrogen [Mass/Vol] 18 mg/dL 7 - 25 mg/dL [facility] Urea nitrogen/Creatinine [Mass ratio] 14 mg/mg [facility] GGTon 06-12-2022 Gamma glutamyl transferase [Catalytic activity/Vol] 20 U/L 8 - 64 U/L [facility] HEMOGLOBIN [id number] By: Link Roche on 06-12-2022 Average glucose Estimated from glycated hemoglobin (Bld) [Mass/Vol] 126 mg/dL [facility] HbA1c (Bld) [Mass fraction] 6.0 % High 4.7 - 5.6 % [facility] HEPATIC FUNCTION PANELon Albumin [Mass/Vol] 4.3 g/dL 3.5 - 5.0 g/dL [facility] ALP [Catalytic activity/Vol] 78 U/L 32 - 126 U/L [facility] ALT [Catalytic activity/Vol] 12 U/L 10 - 52 U/L [facility] AST [Catalytic activity/Vol] 16 U/L 10 - 39 U/L [facility] Bilirubin [Mass/Vol] 1.0 mg/dL <1.5 [facility] Bilirubin.direct [Mass/Vol] 0.2 mg/dL <0.3 [facility] Protein [Mass/Vol] 7.5 g/dL 6.4 - 8.3 g/dL [facility] No Panel Informationon 06-12 Interpretation and review of laboratory results Normal [facility] Interpretation and review of laboratory results Abnormal [facility] PTH INTACTOrdered By: Marli Lizarraga on 06-12-2022 Interpretation and review of laboratory results Abnormal [facility] Parathyrin.intact [Mass/Vol] 79.7 pg/mL High 14.0 - 72.0 pg/mL [facility] URINALYSIS REFLEX TO CULTURE PERFORMABLEon 06-12-2022 Appearance (U) Clear Clear [facility] Bacteria LM Ql (Urine sed) ABSENT ABSENT [facility] Color (U) Yellow Yellow [facility] Epithelial cells.squamous LM Ql (Urine sed) 1/hpf = 1+ 1/hpf = 1+, 2-5/hpf = 2+, 0/hpf = 0+, ABSENT [facility] Glucose Test strip (U) [Mass/Vol] Negative Negative [facility] Ketones (U) [Mass/Vol] Trace Abnormal Negative [facility] Leukocyte esterase Test strip Ql (U) Small Abnormal Negative [facility] Nitrite Ql (U) Negative Negative [facility] pH (U) 5.5 [pH] 5.0 - 7.0 [facility] Protein (U) [Mass/Vol] 30 mg/dL Abnormal Negative [facility] RBC (U) [#/Vol] Trace Abnormal Negative [facility] RBC LM.HPF (Urine sed) [#/Area] 0-2 0 - 2 /HPF [facility] Specific gravity (U) [Rel density] 1.026 [facility] Urobilinogen (U) [Mass/Vol] 0.2 E.U./dL 0.2 E.U/dL, 1.0 E.U/dL [facility] WBC LM.HPF (Urine sed) [#/Area] 10-20 Abnormal 0 - 5 /HPF [facility] URINE PROTEIN/CREA RATIO, RA NDOMon 06-12-2022 Creatinine (24H U) [Mass/Vol] 231.68 mg/dL [facility] Protein Unsp time (U) [Mass/Vol] 49 mg/dL [facility] Protein/Creatinine (U) [Mass ratio] 0.211 mg[facility] ([facility]IMUS) WHOLE BLO ODon 06-09-2022 Tacrolimus (FK506), Blood 9.8 ng/mL Normal 2.0-20.0 [facility] Comment on above: Result Comment: Trou gh (immediately following transplant) 15.0 . Trough (steady state, 2 weeks or more after transplant): 3.0 - 8.0 . Performed by LC-MS/MS technology. Performed By: #### U RTPCR #### [facility] [address] [place] [address] Dr. Dwight Waters ALBUMINon 06-06-2022 Albumin [Mass/Vol] 3.8 g/dL Normal 3.4-5.0 [facility] Comment on above: Performed By: #### C MP #### [facility] [address] [address] [address] Dwight Waters ALKALINE PHOSPHAon ALP [Catalytic activity/Vol] 82 U/L Normal 46-116 [facility] Comment on above: Performed By: #### C MP #### [facility] [address] [address] [address] Dwight Waters BILIRUBIN CONJUGATED (DIRECT )on 06-06-2022 BILI, CONJUGATED 0.2 mg/dL Normal 0.0-0.2 [facility] Comment on above: Performed By: #### C BC #### [facility] [address] [place] [address] Dr. Dwight Waters BILIRUBIN TOTALon 06-06-2022 Bilirubin [Mass/Vol] 1.0 mg/dL Normal 0.2-1.0 [facility] Comment on above: Performed By: #### C BC #### [facility] [address] [place] [address] Dr. Dwight Waters BUNon 06-06-2022 Urea nitrogen [Mass/Vol] 18.0 mg/dL Normal 7.0-18.0 [facility] Comment on above: Performed By: #### C BC #### [facility] [address] [place] [address] Dr. Dwight Waters CALCIUMon 06-06-2022 Calcium [Mass/Vol] 9.4 mg/dL Normal 8.5-10.1 [facility] Comment on above: Performed By: #### C MP #### [facility] [address] [place] [address] Dr. Dwight Waters CBC AUTO DIFFon 06-06-2022 BASO # 0.1 103/ul Normal 0.0-0.1 [facility] Comment on above: Performed By: #### U RTPCR #### [facility] [address] [place] [address] Dr. Dwight Waters Basophils/100 WBC (Bld) 0.8 % Normal 0.2-2.0 [facility] Comment on above: Performed By: #### U RTPCR #### [facility] [address] [place] [address] Dr. Dwight Waters EO # 0.3 103/ul Normal 0.0-0.7 [facility] Comment on above: Performed By: #### U RTPCR #### [facility] [address] [place] [address] Dr. Dwight Waters Eosinophils/100 WBC (Bld) 3.3 % Normal 0.9-7.0 [facility] Comment on above: Performed By: #### U RTPCR #### [facility] [address] [place] [address] Dr. Dwight Waters Erythrocyte distribution width (RBC) [Ratio] 12.4 % Normal 11.0-15.0 [facility] Comment on above: Performed By: #### U RTPCR #### [facility] [address] [place] [address] Dr. Dwight Waters Hematocrit (Bld) [Volume fraction] 45.1 % Normal 42.0-54.0 [facility] Comment on above: Performed By: #### U RTPCR #### [facility] [address] [place] [address] Dr. Dwight Waters Hemoglobin (Bld) [Mass/Vol] 14.4 g/dL Normal 14.0-18.0 [facility] Comment on above: Performed By: #### U RTPCR #### [facility] [address] [place] [address] Dr. Dwight Waters IG # 0.01 10e3/ul Normal 0.00-0.03 [facility] Comment on above: Performed By: #### U RTPCR #### [facility] [address] [place] [address] Dr. Dwight Waters IG % 0.1 % Normal 0.0-0.5 [facility] Comment on above: Performed By: #### U RTPCR #### [facility] [address] [place] [address] Dr. Dwight Waters LYMPH # 2.2 103/ul Normal 1.2-3.8 [facility] Comment on above: Performed By: #### U RTPCR #### [facility] [address] [place] [address] Dr. Dwight Waters Lymphocytes/100 WBC (Bld) 30.0 % Normal 20.5-60.0 [facility] Comment on above: Performed By: #### U RTPCR #### [facility] [address] [place] [address] Dr. Dwight Waters MANUAL DIFF REQ NO Normal [facility] Comment on above: Performed By: #### U RTPCR #### [facility] [address] [place] [address] Dr. Dwight Waters MCH (RBC) [Entitic mass] 28.2 pg Normal 25.9-34.0 [facility] Comment on above: Performed By: #### U RTPCR #### [facility] [address] [address] [address] Dwight Waters MCHC (RBC) [Mass/Vol] 31.9 g/dL Normal 29.9-35.2 [facility] Comment on above: Performed By: #### U RTPCR #### [facility] [address] [place] [address] Dr. Dwight Waters MCV (RBC) [Entitic vol] 88.3 fL Normal 80.0-94.0 [facility] Comment on above: Performed By: #### U RTPCR #### [facility] [address] [place] [address] Dr. Dwight Waters MONO # 0.6 103/ul Normal 0.3-0.8 [facility] Comment on above: Performed By: #### U RTPCR #### [facility] [address] [place] [address] Dr. Dwight Waters Monocytes/100 WBC (Bld) 8.2 % Normal 1.7-12.0 [facility] Comment on above: Performed By: #### U RTPCR #### [facility] [address] [place] [address] Dr. Dwight Waters NEUT # 4.3 103/ul Normal 1.4-6.5 [facility] Comment on above: Performed By: #### U RTPCR #### [facility] [address] [place] [address] Dr. Dwight Waters Neutrophils/100 WBC (Bld) 57.6 % Normal 43.0-75.0 [facility] Comment on above: Performed By: #### U RTPCR #### [facility] [address] [place] [address] Dr. Dwight Waters Platelet mean volume (Bld) [Entitic vol] 9.7 fL Normal 9.5-13.5 [facility] Comment on above: Performed By: #### U RTPCR #### [facility] [address] [place] [address] Dr. Dwight Waters PLT 297 103/ul Normal 150-450 [facility] Comment on above: Performed By: #### U RTPCR #### [facility] [address] [place] [address] Dr. Dwight Waters RBC 5.11 106/ul Normal 4.70-6.10 [facility] Comment on above: Performed By: #### U RTPCR #### [facility] [address] [place] [address] Dr. Dwight Waters WBC 7.5 103/ul Normal 4.0-11.0 [facility] Comment on above: Performed By: #### U RTPCR #### [facility] [address] [place] [address] Dr. Dwight Waters CHLORIDEon 06-06-2022 Chloride [Moles/Vol] 107 mmol/L Normal 98-107 [facility] Comment on above: Performed By: #### C BC #### [facility] [address] [place] [address] Dr. Dwight Waters CO2on 06-06-2022 CO2 [Moles/Vol] 27.4 mmol/L Normal 21.0-32.0 [facility] Comment on above: Performed By: #### C BC #### [facility] [address] [place] [address] Dr. Dwight Waters CREATININEon 06-06-2022 Creatinine [Mass/Vol] 1.20 mg/dL Normal 0.70-1.30 [facility] Comment on above: Performed By: #### C BC #### [facility] [address] [place] [address] Dr. Dwight Waters EGFR-AF TONGAN >60 Normal >=60 [facility] Comment on above: Performed By: #### C BC #### [facility] [address] [place] [address] Dr. Dwight Waters EGFR-NON AF TONGAN >60 Normal >=60 [facility] Comment on above: Performed By: #### C BC #### [facility] [address] [place] [address] Dr. Dwight Waters GGTon 06-06-2022 Gamma glutamyl transferase [Catalytic activity/Vol] 29 U/L Normal 15-85 [facility] Comment on above: Performed By: #### C BC #### [facility] [address] [place] [address] Dr. Dwight Waters GLUCOSE BLOODon 06-06-2022 Glucose [Mass/Vol] 112 mg/dL Critically high 74-106 T [facility] Comment on above: Performed By: #### C BC #### [facility] [address] [place] [address] Dr. Dwight Waters MAGNESIUMon 06-06-2022 Magnesium [Mass/Vol] 1.3 mg/dL Critically low 1.8-2.4 [facility] Comment on above: Performed By: #### C MP #### [facility] [address] [place] [address] Dr. Dwigth Waters NAon 06-06-2022 Sodium [Moles/Vol] 141 mmol/L Normal 136-145 [facility] Comment on above: Performed By: #### C MP #### [facility] [address] [place] [address] Dr. Dwight Waters PHOSPHORUSon 06-06-2022 Phosphate [Mass/Vol] 3.1 mg/dL Normal 2.6-4.7 [facility] Comment on above: Performed By: #### C MP #### [facility] [address] [place] [address] Dr. Dwight Waters POTASSIUMon 06-06-2022 Potassium [Moles/Vol] 4.3 mmol/L Normal 3.5-5.1 [facility] Comment on above: Performed By: #### C BC #### [facility] [address] [place] [address] Dr. Dwight Waters SGOTon 06-06-2022 AST [Catalytic activity/Vol] 16 U/L Normal 15-37 [facility] Comment on above: Performed By: #### C BC #### [facility] [address] [place] [address] Dr. Dwight Waters SGPTon 06-06-2022 ALT [Catalytic activity/Vol] 50 U/L Normal 16-63 [facility] Comment on above: Performed By: #### C BC #### [facility] [address] [place] [address] Dr. Dwight Waters Bacteria identified Cx Nom ( Bld)on 05-21-2022 Bacteria identified Cx Nom (Unsp spec) NO GROWTH DAY 5 OF 5 [facility] Results may be compr omised due to volume of BACT\ALERT bottle exceeding 10mLs . The optimal blood volume is 8-10 mls per aerobic/anaerobic blood culture bottle. [facility] CALCIUMon 05-20-2022 Calcium [Mass/Vol] 9.1 mg/dL 8.6 - 10. 5 mg/dL [facility] CBC,PLATELETSon 05-20-2022 Erythrocyte distribution width (RBC) [Ratio] 12.5 % 10.9 - 14.3 % [facility] Hematocrit (Bld) [Volume fraction] 37.1 % Low 39.6 - 48.8 % [facility] Hemoglobin (Bld) [Mass/Vol] 12.3 g/dL Low 13.4 - 16.8 g/dL [facility] MCH (RBC) [Entitic mass] 28.9 pg 26.1 - 33.3 pg [facility] MCHC (RBC) [Mass/Vol] 33.2 g/dL 31.9 - 36.5 g/dL [facility] MCV (RBC) [Entitic vol] 87.3 fL 79.0 - 94.5 fL [facility] Platelet mean volume (Bld) [Entitic vol] 9.9 fL 8.7 - 12.3 fL [facility] Platelets (Bld) [#/Vol] 234 10*3/uL 146 - 337 K/uL [facility] RBC (Bld) [#/Vol] 4.25 10*6/uL Low [facility] WBC (Bld) [#/Vol] 6.31 10*3/uL 3.73 - 10. 10 K/uL [facility] CHEM 7 (LYTES,BUN,CREA,GLUC) on 05-20-2022 Anion gap [Moles/Vol] 15 mmol/L 7 - 17 mmol/L [facility] Chloride [Moles/Vol] 111 mmol/L High 98 - 10 8 mmol/L [facility] CO2 [Moles/Vol] 22 mmol/L 21 - 31 mmol/L [facility] Creatinine [Mass/Vol] 1.10 mg/dL 0.70 - 1.30 mg/dL [facility] GFR/1.73 sq M.predicted CKD-EPI (S/P/Bld) [Vol rate/Area] 81 >=60 mL/min/1.73m 2 [facility] Comment on above: Reported eGFR is bas ed on the CKD-EPI 2020 equation using creatinine, age, and sex. Glucose [Mass/Vol] 92 mg/dL 70 - 99 mg/dL [facility] Osmolality Calc [Osmolality] 302 [facility] Potassium [Moles/Vol] 4.4 mmol/L 3.5 - 5.0 mmol/L [facility] Sodium [Moles/Vol] 144 mmol/L 135 - 145 mmol/L [facility] Urea nitrogen [Mass/Vol] 18 mg/dL 7 - 25 mg/dL [facility] Urea nitrogen/Creatinine [Mass ratio] 16 mg/mg [facility] MAGNESIUMon 05-20-2022 Magnesium [Mass/Vol] 1.5 mg/dL Low 1.6 - 2 .6 mg/dL [facility] No Panel Informationon 05-20 Interpretation and review of laboratory results Normal [facility] Interpretation and review of laboratory results Abnormal [facility] PHOSPHATE, INORGANICon 05-20 Phosphate [Mass/Vol] 3.3 mg/dL 2.2 - 4 .6 mg/dL [facility] RF Unspecified body region V iews during surgeryon 05-20-2022 Radiology Study observation (narrative) [facility] IMPRESSION: 1. Status post kidney transplant into [...] projections of kidneys, ureters, and bladder. FINDINGS: [employer] images: [employer] radiographs of the abdomen reveal a nonobstructive [...] Contrast refluxes up the ureter to the [place] right kidney that is grossly normal appearing. [...] projections of kidneys, ureters, and bladder. FINDINGS: [employer] images: [employer] radiographs of the abdomen reveal a nonobstructive [...] Contrast refluxes up the ureter to the [place] right kidney that is grossly normal appearing. [...] I have reviewed and approved this report. [facility] RF Unspecified body region V iews during surgeryOrdered By: Lizz Campos on 05-20-2022 [facility] Work Phone: CALCIUMon 05-19-2022 Calcium [Mass/Vol] 8.6 mg/dL 8.6 - 10. 5 mg/dL [facility] Calcium [Mass/Vol] 9.2 mg/dL 8.6 - 10. 5 mg/dL [facility] CBC,PLATELETSon 05-19-2022 Erythrocyte distribution width (RBC) [Ratio] 12.4 % 10.9 - 14.3 % [facility] Hematocrit (Bld) [Volume fraction] 38.0 % Low 39.6 - 48.8 % [facility] Hemoglobin (Bld) [Mass/Vol] 12.0 g/dL Low 13.4 - 16.8 g/dL [facility] MCH (RBC) [Entitic mass] 28.6 pg 26.1 - 33.3 pg [facility] MCHC (RBC) [Mass/Vol] 31.6 g/dL Low 31.9 - 36.5 g/dL [facility] MCV (RBC) [Entitic vol] 90.5 fL 79.0 - 94.5 fL [facility] Platelet mean volume (Bld) [Entitic vol] 9.7 fL 8.7 - 12.3 fL [facility] Platelets (Bld) [#/Vol] 199 10*3/uL 146 - 337 K/uL [facility] RBC (Bld) [#/Vol] 4.20 10*6/uL Low [facility] WBC (Bld) [#/Vol] 6.81 10*3/uL 3.73 - 10. 10 K/uL [facility] CHEM 7 (LYTES,BUN,CREA,GLUC) on 05-19-2022 Anion gap [Moles/Vol] 15 mmol/L 7 - 17 mmol/L [facility] Anion gap [Moles/Vol] 13 mmol/L 7 - 17 mmol/L [facility] Chloride [Moles/Vol] 106 mmol/L 98 - 10 8 mmol/L [facility] Chloride [Moles/Vol] 105 mmol/L 98 - 10 8 mmol/L [facility] CO2 [Moles/Vol] 24 mmol/L 21 - 31 mmol/L [facility] CO2 [Moles/Vol] 30 mmol/L 21 - 31 mmol/L [facility] Creatinine [Mass/Vol] 1.46 mg/dL High 0.70 - 1.30 mg/dL [facility] Creatinine [Mass/Vol] 1.39 mg/dL High 0.70 - 1.30 mg/dL [facility] GFR/1.73 sq M.predicted CKD-EPI (S/P/Bld) [Vol rate/Area] 58 Low >=60 mL/min/1.73m 2 [facility] Comment on above: Reported eGFR is bas ed on the CKD-EPI 2020 equation using creatinine, age, and sex. GFR/1.73 sq M.predicted CKD-EPI (S/P/Bld) [Vol rate/Area] 61 >=60 mL/min/1.73m 2 [facility] Comment on above: Reported eGFR is bas ed on the CKD-EPI 2020 equation using creatinine, age, and sex. Glucose [Mass/Vol] 103 mg/dL High 70 - 99 mg/dL [facility] Glucose [Mass/Vol] 121 mg/dL High 70 - 99 mg/dL [facility] Interpretation and review of laboratory results Abnormal [facility]c [facility]ality] [facility] Calc [Osmolality] 303 [facility] Potassium [Moles/Vol] 3.9 mmol/L 3.5 - 5.0 mmol/L [facility] Potassium [Moles/Vol] 3.8 mmol/L 3.5 - 5.0 mmol/L [facility] Sodium [Moles/Vol] 141 mmol/L 135 - 145 mmol/L [facility] Sodium [Moles/Vol] 144 mmol/L 135 - 145 mmol/L [facility] Urea nitrogen [Mass/Vol] 21 mg/dL 7 - 25 mg/dL [facility] Urea nitrogen [Mass/Vol] 18 mg/dL 7 - 25 mg/dL [facility] Urea nitrogen/Creatinine [Mass ratio] 14 mg/mg [facility] Urea nitrogen/Creatinine [Mass ratio] 13 mg/mg [facility] MAGNESIUMon 05-19-2022 Magnesium [Mass/Vol] 1.7 mg/dL 1.6 - 2 .6 mg/dL [facility] Magnesium [Mass/Vol] 2.0 mg/dL 1.6 - 2 .6 mg/dL [facility] No Panel Informationon 05-19 Interpretation and review of laboratory results Abnormal [facility] Interpretation and review of laboratory results Normal [facility] Interpretation and review of laboratory results Normal [facility] PHOSPHATE, INORGANICon 05-19 Phosphate [Mass/Vol] 2.7 mg/dL 2.2 - 4 .6 mg/dL [facility] Phosphate [Mass/Vol] 3.0 mg/dL 2.2 - 4 .6 mg/dL [facility] CALCIUMon 05-18-2022 Calcium [Mass/Vol] 9.1 mg/dL 8.6 - 10. 5 mg/dL [facility] CBC,PLATELETSon 05-18-2022 Erythrocyte distribution width (RBC) [Ratio] 12.5 % 10.9 - 14.3 % [facility] Hematocrit (Bld) [Volume fraction] 37.3 % Low 39.6 - 48.8 % [facility] Hemoglobin (Bld) [Mass/Vol] 11.9 g/dL Low 13.4 - 16.8 g/dL [facility] MCH (RBC) [Entitic mass] 28.9 pg 26.1 - 33.3 pg [facility] MCHC (RBC) [Mass/Vol] 31.9 g/dL 31.9 - 36.5 g/dL [facility] MCV (RBC) [Entitic vol] 90.5 fL 79.0 - 94.5 fL [facility] Platelet mean volume (Bld) [Entitic vol] 10.1 fL 8.7 - 12.3 fL [facility] Platelets (Bld) [#/Vol] 189 10*3/uL 146 - 337 K/uL [facility] RBC (Bld) [#/Vol] 4.12 10*6/uL Low [facility] WBC (Bld) [#/Vol] 10.19 10*3/uL High 3.73 - 10 .10 K/uL [facility] CHEM 7 (LYTES,BUN,CREA,GLUC) Ordered By: Tamiko Thapa on 05-18-2022 Anion gap [Moles/Vol] 13 mmol/L 7 - 17 mmol/L [facility] Chloride [Moles/Vol] 104 mmol/L 98 - 10 8 mmol/L [facility] CO2 [Moles/Vol] 26 mmol/L 21 - 31 mmol/L [facility] Creatinine [Mass/Vol] 2.96 mg/dL High 0.70 - 1.30 mg/dL [facility] GFR/1.73 sq M.predicted CKD-EPI (S/P/Bld) [Vol rate/Area] 25 Low >=60 mL/min/1.73m 2 [facility] Comment on above: Reported eGFR is bas ed on the CKD-EPI 2020 equation using creatinine, age, and sex. Glucose [Mass/Vol] 136 mg/dL High 70 - 99 mg/dL [facility] Osmolality Calc [Osmolality] 304 [facility] Potassium [Moles/Vol] 4.2 mmol/L 3.5 - 5.0 mmol/L [facility] Sodium [Moles/Vol] 139 mmol/L 135 - 145 mmol/L [facility] Urea nitrogen [Mass/Vol] 41 mg/dL High 7 - 25 mg/dL [facility] Urea nitrogen/Creatinine [Mass ratio] 14 mg/mg [facility] CHEM 7 (LYTES,BUN,CREA,GLUC) on 05-18-2022 Anion gap [Moles/Vol] 13 mmol/L 7 - 17 mmol/L [facility] Chloride [Moles/Vol] 102 mmol/L 98 - 10 8 mmol/L [facility] CO2 [Moles/Vol] 26 mmol/L 21 - 31 mmol/L [facility] Creatinine [Mass/Vol] 1.91 mg/dL High 0.70 - 1.30 mg/dL [facility] GFR/1.73 sq M.predicted CKD-EPI (S/P/Bld) [Vol rate/Area] 42 Low >=60 mL/min/1.73m 2 [facility] Comment on above: Reported eGFR is bas ed on the CKD-EPI 1 equation using creatinine, age, and sex. Glucose [Mass/Vol] 158 mg/dL High 70 - 99 mg/dL [facility] Osmolality Calc [Osmolality] 297 [facility] Potassium [Moles/Vol] 4.0 mmol/L 3.5 - 5.0 mmol/L [facility] Sodium [Moles/Vol] 137 mmol/L 135 - 145 mmol/L [facility] Urea nitrogen [Mass/Vol] 30 mg/dL High 7 - 25 mg/dL [facility] Urea nitrogen/Creatinine [Mass ratio] 16 mg/mg [facility] MAGNESIUMon 05-18-2022 Magnesium [Mass/Vol] 1.7 mg/dL 1.6 - 2 .6 mg/dL [facility] Magnesium [Mass/Vol] 2.2 mg/dL 1.6 - 2 .6 mg/dL [facility] No Panel Informationon 05-18 Interpretation and review of laboratory results Normal [facility] Interpretation and review of laboratory results Abnormal [facility] Interpretation and review of laboratory results Abnormal [facility] Interpretation and review of laboratory results Normal [facility] PHOSPHATE, INORGANICon 05-18 Phosphate [Mass/Vol] 2.8 mg/dL 2.2 - 4 .6 mg/dL [facility] Phosphate [Mass/Vol] 2.0 mg/dL Low 2.2 - 4 .6 mg/dL [facility] PT,INR,PTTon 05-18-2022 aPTT Coag (PPP) [Time] 31.0 s [facility] INR Coag (Bld) [Relative time] 1.1 {INR} [facility] PT Coag (PPP) [Time] 14.4 s High [facility] URINE CULTUREOrdered By: Sylvia Campos on 05-18-2022 Bacteria identified Cx Nom (Unsp spec) No Growth [facility] CBC,PLATELETSon 05-17-2022 Erythrocyte distribution width (RBC) [Ratio] 12.8 % 10.9 - 14.3 % [facility] Hematocrit (Bld) [Volume fraction] 42.8 % 39.6 - 48.8 % [facility] Hemoglobin (Bld) [Mass/Vol] 13.3 g/dL Low 13.4 - 16.8 g/dL [facility] MCH (RBC) [Entitic mass] 28.9 pg 26.1 - 33.3 pg [facility] MCHC (RBC) [Mass/Vol] 31.1 g/dL Low 31.9 - 36.5 g/dL [facility] MCV (RBC) [Entitic vol] 92.8 fL 79.0 - 94.5 fL [facility] Platelet mean volume (Bld) [Entitic vol] 10.3 fL 8.7 - 12.3 fL [facility] Platelets (Bld) [#/Vol] 188 10*3/uL 146 - 337 K/uL [facility] RBC (Bld) [#/Vol] 4.61 10*6/uL [facility] WBC (Bld) [#/Vol] 16.61 10*3/uL High 3.73 - 10 .10 K/uL [facility] CHEM 7 (LYTES,BUN,CREA,GLUC) Ordered By: Kehinde Gutierrez on 05-17-2022 Anion gap [Moles/Vol] 24 mmol/L High 7 - 17 mmol/L [facility] Chloride [Moles/Vol] 100 mmol/L 98 - 10 8 mmol/L [facility] CO2 [Moles/Vol] 16 mmol/L Low 21 - 31 mmol/L [facility] Creatinine [Mass/Vol] 8.08 mg/dL High 0.70 - 1.30 mg/dL [facility] GFR/1.73 sq M.predicted CKD-EPI (S/P/Bld) [Vol rate/Area] 7 Low >=60 mL/min/1.73m 2 [facility] Comment on above: Reported eGFR is bas ed on the CKD-EPI 2020 equation using creatinine, age, and sex. Glucose [Mass/Vol] 164 mg/dL High 70 - 99 mg/dL [facility] Osmolality Calc [Osmolality] 305 [facility] Potassium [Moles/Vol] 5.0 mmol/L 3.5 - 5.0 mmol/L [facility] Sodium [Moles/Vol] 135 mmol/L 135 - 145 mmol/L [facility] Urea nitrogen [Mass/Vol] 56 mg/dL High 7 - 25 mg/dL [facility] Urea nitrogen/Creatinine [Mass ratio] 7 mg/mg [facility] CHEM 7 (LYTES,BUN,CREA,GLUC) Ordered By: Kaylah Mc on 05-17-2022 Anion gap [Moles/Vol] 15 mmol/L 7 - 17 mmol/L [facility] Chloride [Moles/Vol] 103 mmol/L 98 - 10 8 mmol/L [facility] CO2 [Moles/Vol] 23 mmol/L 21 - 31 mmol/L [facility] Creatinine [Mass/Vol] 5.95 mg/dL High 0.70 - 1.30 mg/dL [facility] GFR/1.73 sq M.predicted CKD-EPI (S/P/Bld) [Vol rate/Area] 11 Low >=60 mL/min/1.73m 2 [facility] Comment on above: Reported eGFR is bas ed on the CKD-EPI 2020 equation using creatinine, age, and sex. Glucose [Mass/Vol] 165 mg/dL High 70 - 99 mg/dL [facility] Interpretation and review of laboratory results Abnormal [facility] Osmolality Calc [Osmolality] 305 [facility] Potassium [Moles/Vol] 4.6 mmol/L 3.5 - 5.0 mmol/L [facility] Sodium [Moles/Vol] 136 mmol/L 135 - 145 mmol/L [facility] Urea nitrogen [Mass/Vol] 52 mg/dL High 7 - 25 mg/dL [facility] Urea nitrogen/Creatinine [Mass ratio] 9 mg/mg [facility] MAGNESIUMon 05-17-2022 Interpretation and review of laboratory results Normal [facility] Interpretation and review of laboratory results Normal [facility] Magnesium [Mass/Vol] 1.6 mg/dL 1.6 - 2 .6 mg/dL [facility] Magnesium [Mass/Vol] 1.8 mg/dL 1.6 - 2 .6 mg/dL [facility] No Panel Informationon 05-17 Interpretation and review of laboratory results Abnormal [facility] PHOSPHATE, INORGANICon 05-17 Phosphate [Mass/Vol] 4.9 mg/dL High 2.2 - 4 .6 mg/dL [facility] PT,INR,PTTon 05-17-2022 aPTT Coag (PPP) [Time] 33.0 s [facility] INR Coag (Bld) [Relative time] 1.3 {INR} High [facility] PT Coag (PPP) [Time] 15.7 s High [facility] Portable XR Chest Viewson Radiology Study observation (narrative) [facility] IMPRESSION: No acute findings. OLOGY EXAM: XR [...] Stable cardiomegaly. IMPRESSION IMPRESSION: No acute findings. [facility] Portable XR Chest ViewsOrder ed By: David Sanz on 05-17-2022 [facility] Work Phone: URINALYSISOrdered By: Michael patel Ma on 05-17-2022 Appearance (U) Cloudy Abnormal Clear [facility] Comment on above: Results may be inacc urate due to color interference. Clinical correlation recommended. Bacteria LM Ql (Urine sed) ABSENT ABSENT [facility] Color (U) Red Abnormal Yellow [facility] Comment on above: Results may be inacc urate due to color interference. Clinical correlation recommended. Epithelial cells.squamous LM Ql (Urine sed) ABSENT 1/hpf = 1+, 2-5/hpf = 2+, 0/hpf = 0+, ABSENT [facility] Glucose Test strip (U) [Mass/Vol] Negative Negative [facility] Comment on above: Results may be inacc urate due to color interference. Clinical correlation recommended. Interpretation and review of laboratory results Abnormal [facility] Ketones (U) [Mass/Vol] Trace Abnormal Negative [facility] Comment on above: Results may be inacc urate due to color interference. Clinical correlation recommended. Leukocyte esterase Test strip Ql (U) Large Abnormal Negative [facility] Comment on above: Results may be inacc urate due to color interference. Clinical correlation recommended. Nitrite Ql (U) Negative Negative [facility] Comment on above: Results may be inacc urate due to color interference. Clinical correlation recommended. pH (U) 5.0 [pH] 5.0 - 7.0 [facility] Comment on above: Results may be inacc urate due to color interference. Clinical correlation recommended. Protein (U) [Mass/Vol] mg/dL Abnormal Negative [facility] Comment on above: Results may be inacc urate due to color interference. Clinical correlation recommended. RBC (U) [#/Vol] Large Abnormal Negative [facility] Comment on above: Results may be inacc urate due to color interference. Clinical correlation recommended. RBC LM.HPF (Urine sed) [#/Area] /[HPF] Abnormal 0 - 2 /HPF [facility] Specific gravity (U) [Rel density] 1.016 [facility] Comment on above: Results may be inacc urate due to color interference. Clinical correlation recommended. Urobilinogen (U) [Mass/Vol] 0.2 E.U./dL 0.2 E.U/dL, 1.0 E.U/dL [facility] Comment on above: Results may be inacc urate due to color interference. Clinical correlation recommended. WBC LM.HPF (Urine sed) [#/Area] /[HPF] Abnormal 0 - 5 /HPF [facility] URINE CULTUREOrdered By: Tyler Tiwari on 05-17-2022 Bacteria identified Cx Nom (Unsp spec) No Growth [facility] CBC,PLATELETSon 05-16-2022 Erythrocyte distribution width (RBC) [Ratio] 12.9 % 10.9 - 14.3 % [facility] Hematocrit (Bld) [Volume fraction] 46.5 % 39.6 - 48.8 % [facility] Hemoglobin (Bld) [Mass/Vol] 14.7 g/dL 13.4 - 16.8 g/dL [facility] MCH (RBC) [Entitic mass] 28.3 pg 26.1 - 33.3 pg [facility] MCHC (RBC) [Mass/Vol] 31.6 g/dL Low 31.9 - 36.5 g/dL [facility] MCV (RBC) [Entitic vol] 89.6 fL 79.0 - 94.5 fL [facility] Platelet mean volume (Bld) [Entitic vol] 10.3 fL 8.7 - 12.3 fL [facility] Platelets (Bld) [#/Vol] 188 10*3/uL 146 - 337 K/uL [facility] RBC (Bld) [#/Vol] 5.19 10*6/uL [facility] WBC (Bld) [#/Vol] 12.55 10*3/uL High 3.73 - 10 .10 K/uL [facility] CHEM 7 (LYTES,BUN,CREA,GLUC) on 05-16-2022 Anion gap [Moles/Vol] 17 mmol/L 7 - 17 mmol/L [facility] Chloride [Moles/Vol] 106 mmol/L 98 - 10 8 mmol/L [facility] CO2 [Moles/Vol] 22 mmol/L 21 - 31 mmol/L [facility] Creatinine [Mass/Vol] 5.23 mg/dL High 0.70 - 1.30 mg/dL [facility] GFR/1.73 sq M.predicted CKD-EPI (S/P/Bld) [Vol rate/Area] 13 Low >=60 mL/min/1.73m 2 [facility] Comment on above: Reported eGFR is bas ed on the CKD-EPI 2020 equation using creatinine, age, and sex. Glucose [Mass/Vol] 116 mg/dL High 70 - 99 mg/dL [facility] Osmolality Calc [Osmolality] 305 [facility] Potassium [Moles/Vol] 4.6 mmol/L 3.5 - 5.0 mmol/L [facility] Sodium [Moles/Vol] 140 mmol/L 135 - 145 mmol/L [facility] Urea nitrogen [Mass/Vol] 42 mg/dL High 7 - 25 mg/dL [facility] Urea nitrogen/Creatinine [Mass ratio] 8 mg/mg [facility] CHEM 7 (LYTES,BUN,CREA,GLUC) Ordered By: Alma Pena on 05-16-2022 Anion gap [Moles/Vol] 14 mmol/L 7 - 17 mmol/L [facility] Chloride [Moles/Vol] 103 mmol/L 98 - 10 8 mmol/L [facility] CO2 [Moles/Vol] 22 mmol/L 21 - 31 mmol/L [facility] Creatinine [Mass/Vol] 6.09 mg/dL High 0.70 - 1.30 mg/dL [facility] GFR/1.73 sq M.predicted CKD-EPI (S/P/Bld) [Vol rate/Area] 10 Low >=60 mL/min/1.73m 2 [facility] Comment on above: Reported eGFR is bas ed on the CKD-EPI 2020 equation using creatinine, age, and sex. Glucose [Mass/Vol] 134 mg/dL High 70 - 99 mg/dL [facility] Interpretation and review of laboratory results Abnormal [facility] Osmolality Calc [Osmolality] 298 [facility] Potassium [Moles/Vol] 4.9 mmol/L 3.5 - 5.0 mmol/L [facility] Sodium [Moles/Vol] 134 mmol/L Low 135 - 145 mmol/L [facility] Comment on above: Results inconsistent with previous results Urea nitrogen [Mass/Vol] 49 mg/dL High 7 - 25 mg/dL [facility] Urea nitrogen/Creatinine [Mass ratio] 8 mg/mg [facility] EXTRA MICROon 05-16-2022 [facility] LT BLUE TOP TUBEon 2 [facility] LYTES (NA, K, CL) - URINE - RANDOMon 05-16-2022 Chloride (24H U) [Moles/Vol] 68 mmol/L [facility] Potassium (24H U) [Moles/Vol] 36.7 mmol/L [facility] Sodium (24H U) [Moles/Vol] 55 mmol/L [facility] MAGNESIUMon 05-16-2022 Magnesium [Mass/Vol] 1.7 mg/dL 1.6 - 2 .6 mg/dL [facility] NOVEL CORONAVIRUS PCROrdered By: Edson Candelario on 05-16-2022 SARS-CoV-2 (COVID-19) RNA ESTELITA+probe Ql (Unsp spec) Not detected NOT DETECTED [facility] Comment on above: [facility] Negative results do [...] use authorization for use by authorized laboratories. [facility] No Panel Informationon 05-16 Interpretation and review of laboratory results Abnormal [facility] Interpretation and review of laboratory results Normal [facility] The reference range has not been established for random urine specimens. The test result should be integrated into the clinical context for interpretation. [facility] OSMOLALITY, URINEon 05-16-20 Interpretation and review of laboratory results Normal [facility] Osmolality (U) [Osmolality] 320 mosm/kg [facility] PROCALCITONINon 05-16-2022 Interpretation and review of laboratory results Normal [facility] Procalcitonin [Mass/Vol] 0.18 ng/mL <0.50 [facility] Comment on above: Procalcitonin is [...] procalcitonin in various clinical settings. [email or web address] Two common cutoffs associated with bacterial infections are as follows. Respiratory tract infections: >0.25 ng/mL Sepsis/septic shock: >0.5 ng/mL Procalcitonin should not be used alone as a diagnostic tool, however. All procalcitonin results should be interpreted in association with the patients clinical condition and all laboratory findings. PT,INR,PTTon 05-16-2022 aPTT Coag (PPP) [Time] 30.3 s [facility] INR Coag (Bld) [Relative time] 1.1 {INR} [facility] PT Coag (PPP) [Time] 14.1 s [facility] SARS-CoV-2 (COVID-19) RNA NA A+probe Ql (Unsp spec)Ordered By: Edson Candelario on 05-16-2022 [facility] TACROLIMUS LEVEL, TROUGH (NE E DRUG LEVEL)Ordered By: Mariama Nick on 05-16-2022 Interpretation and review of laboratory results Normal [facility] Tacrolimus (Bld) [Mass/Vol] 4.1 ng/mL Bone Marrow Transplant: 4.0-12.0, Therapeutic: 5.0-15.0 [facility] Method performed is a chemiluminescent microparticle immunoasssay on the [employer] i2000. The range is based on experience at [facility] and users should be aware that target concentrations vary widely depending on concomitant therapy, time post-transplant, and desired degree of immunosuppression. [facility] URINE PROTEIN/CREA RATIO, RA Baljit 05-16-2022 Creatinine (24H U) [Mass/Vol] 59.82 mg/dL [facility] Protein Unsp time (U) [Mass/Vol] 111 mg/dL [facility] Protein/Creatinine (U) [Mass ratio] 1.856 mg/g [facility] US for transplanted kidney l jose guadalupeitedon 05-16-2022 Radiology Study observation (narrative) [facility] IMPRESSION: 1. Pelvocaliectasis/mild hydronephrosis in the transplant [...] appearing vascular flow in the transplant kidney. [facility] US for transplanted kidney l imitedOrdered By: Rosendo Matute on 05-16-2022 [facility] Work Phone: CBC AND ELECTRONIC DIFFon Basophils (Bld) [#/Vol] 10*3/uL 0.00 - 0.09 K/uL [facility] Basophils/100 WBC (Bld) 0.2 % [facility] Differential cell count method Nom (Bld) Electronic Differential [facility] Eosinophils (Bld) [#/Vol] 10*3/uL 0.00 - 0.48 K/uL [facility] Eosinophils/100 WBC (Bld) 0.0 % [facility] Erythrocyte distribution width (RBC) [Ratio] 12.8 % 10.9 - 14.3 % [facility] Hematocrit (Bld) [Volume fraction] 46.0 % 39.6 - 48.8 % [facility] Hemoglobin (Bld) [Mass/Vol] 14.6 g/dL 13.4 - 16.8 g/dL [facility] Immature granulocytes (Bld) [#/Vol] 0.07 10*3/uL <=0.08 [facility] Immature granulocytes/100 WBC (Bld) 0.4 % [facility] Lymphocytes (Bld) [#/Vol] 1.49 10*3/uL 0.83 - 3.57 K/uL [facility] Lymphocytes/100 WBC (Bld) 9.4 % [facility] MCH (RBC) [Entitic mass] 28.2 pg 26.1 - 33.3 pg [facility] MCHC (RBC) [Mass/Vol] 31.7 g/dL Low 31.9 - 36.5 g/dL [facility] MCV (RBC) [Entitic vol] 89.0 fL 79.0 - 94.5 fL [facility] Monocytes (Bld) [#/Vol] 1.45 10*3/uL High 0.24 - 0.93 K/uL [facility] Monocytes/100 WBC (Bld) 9.2 % [facility] Neutrophils (Bld) [#/Vol] 12.77 10*3/uL High 1.57 - 6.19 K/uL [facility] Nucleated RBC/100 WBC (Bld) [Ratio] 0.0 % <=0.2 /100 WBC [facility] Platelet mean volume (Bld) [Entitic vol] 9.9 fL 8.7 - 12.3 fL [facility] Platelets (Bld) [#/Vol] 250 10*3/uL 146 - 337 K/uL [facility] RBC (Bld) [#/Vol] 5.17 10*6/uL [facility] Segmented neutrophils/100 WBC (Bld) 80.8 % [facility] WBC (Bld) [#/Vol] 15.81 10*3/uL High 3.73 - 10 .10 K/uL [facility] CBC AUTO DIFFon 05-15-2022 BASO # 0.0 103/ul Normal 0.0-0.1 [facility] Comment on above: Performed By: #### C BC #### [facility] [address] [address] [address] Dwight Waters Basophils/100 WBC (Bld) 0.3 % Normal 0.2-2.0 [facility] Comment on above: Performed By: #### C BC #### [facility] [address] [place] [address] Dr. Dwight Waters EO # 0.1 103/ul Normal 0.0-0.7 [facility] Comment on above: Performed By: #### C BC #### [facility] [address] [place] [address] Dr. Dwight Waters Eosinophils/100 WBC (Bld) 0.8 % Critically low 0.9-7.0 [facility] Comment on above: Performed By: #### C BC #### [facility] [address] [place] [address] Dr. Dwight Waters Erythrocyte distribution width (RBC) [Ratio] 12.7 % Normal 11.0-15.0 [facility] Comment on above: Performed By: #### C BC #### [facility] [address] [place] [address] Dr. Dwight Waters Hematocrit (Bld) [Volume fraction] 43.5 % Normal 42.0-54.0 [facility] Comment on above: Performed By: #### C BC #### [facility] [address] [place] [address] Dr. Dwight Waters Hemoglobin (Bld) [Mass/Vol] 14.4 g/dL Normal 14.0-18.0 [facility] Comment on above: Performed By: #### C BC #### [facility] [address] [place] [address] Dr. Dwight Waters IG # 0.02 10e3/ul Normal 0.00-0.03 [facility] Comment on above: Performed By: #### C BC #### [facility] [address] [place] [address] Dr. Dwight Waters IG % 0.2 % Normal 0.0-0.5 [facility] Comment on above: Performed By: #### C BC #### [facility] [address] [place] [address] Dr. Dwight Waters LYMPH # 1.5 103/ul Normal 1.2-3.8 [facility] Comment on above: Performed By: #### C BC #### [facility] [address] [address] [address] Dwight Waters Lymphocytes/100 WBC (Bld) 12.5 % Critically low 20.5-60.0 [facility] Comment on above: Performed By: #### C BC #### [facility] [address] [place] [address] Dr. Dwight Waters MANUAL DIFF REQ NO Normal [facility] Comment on above: Performed By: #### C BC #### [facility] [address] [place] [address] Dr. Dwight Waters MCH (RBC) [Entitic mass] 28.6 pg Normal 25.9-34.0 [facility] Comment on above: Performed By: #### C BC #### [facility] [address] [place] [address] Dr. Dwight Waters MCHC (RBC) [Mass/Vol] 33.1 g/dL Normal 29.9-35.2 [facility] Comment on above: Performed By: #### C BC #### [facility] [address] [place] [address] Dr. Dwight Waters MCV (RBC) [Entitic vol] 86.3 fL Normal 80.0-94.0 [facility] Comment on above: Performed By: #### C BC #### [facility] [address] [place] [address] Dr. Dwight Waters MONO # 1.0 103/ul Critically high 0.3-0.8 [facility] Comment on above: Performed By: #### C BC #### [facility] [address] [place] [address] Dr. Dwight Waters Monocytes/100 WBC (Bld) 8.2 % Normal 1.7-12.0 [facility] Comment on above: Performed By: #### C BC #### [facility] [address] [place] [address] Dr. Dwight Waters NEUT # 9.1 103/ul Critically high 1.4-6.5 [facility] Comment on above: Performed By: #### C BC #### [facility] [address] [address] [address] Dwight Waters Neutrophils/100 WBC (Bld) 78.0 % Critically high 43.0-75.0 [facility] Comment on above: Performed By: #### C BC #### [facility] [address] [address] [address] Dwight Waters Platelet mean volume (Bld) [Entitic vol] 9.8 fL Normal 9.5-13.5 [facility] Comment on above: Performed By: #### C BC #### [facility] [address] [address] [address] Dwight Waters PLT 251 103/ul Normal 150-450 [facility] Comment on above: Performed By: #### C BC #### [facility] [address] [address] [address] Dwight Waters RBC 5.04 106/ul Normal 4.70-6.10 [facility] Comment on above: Performed By: #### C BC #### [facility] [address] [address] [address] Dwight Waters WBC 11.6 103/ul Critically high 4.0-11.0 [facility] Comment on above: Performed By: #### C BC #### [facility] [address] [address] [address] Dwight Waters CHEM 6 (LYTES, BUN CREA)on 0 05-15-2022 Anion gap [Moles/Vol] 12 mmol/L 7 - 17 mmol/L [facility] Chloride [Moles/Vol] 105 mmol/L 98 - 10 8 mmol/L [facility] CO2 [Moles/Vol] 26 mmol/L 21 - 31 mmol/L [facility] Creatinine [Mass/Vol] 2.85 mg/dL High 0.70 - 1.30 mg/dL [facility] GFR/1.73 sq M.predicted CKD-EPI (S/P/Bld) [Vol rate/Area] 26 Low >=60 mL/min/1.73m 2 [facility] Comment on above: Reported eGFR is bas ed on the CKD-EPI 2020 equation using creatinine, age, and sex. Potassium [Moles/Vol] 4.6 mmol/L 3.5 - 5.0 mmol/L [facility] Sodium [Moles/Vol] 138 mmol/L 135 - 145 mmol/L [facility] Urea nitrogen [Mass/Vol] 32 mg/dL High 7 - 25 mg/dL [facility] Urea nitrogen/Creatinine [Mass ratio] 11 mg/mg [facility] CT ABD/PELVIS WO CONon 05-15 CT [...] transplanted kidney with moderate right-sided hydronephrosis. Atrophic [place] kidneys with moderate right-sided hydronephrosis. Multiple nonobstructive [...] transplanted kidney with moderate right-sided hydronephrosis. Atrophic [place] kidneys with moderate right-sided hydronephrosis. Multiple nonobstructive right renal calculi measuring up to 8 mm. FOLLOW-UP: Follow-up as clinically indicated. Electronically authenticated by: LYNDSAY JEAN Date: 2022-05-15 05:04 Normal [facility] Covid-19 PCR (CVDTBH)on 04-30 SARS-CoV-2 (COVID-19) RNA ESTELITA+probe Ql (Unsp spec) Not detected Normal NOT DETECTED [facility] Comment on above: Result Comment: When [...] for this test is supported by the [place] of [employer] and Human Service's declaration that [...] Performed By: #### U RTPCR #### [facility] [address] [place] [address] Dr. Dwight Waters GLUCOSEon 05-15-2022 Glucose [Mass/Vol] 141 mg/dL High 70 - 99 mg/dL [facility] HEPATIC FUNCTION PANELon Albumin [Mass/Vol] 4.3 g/dL 3.5 - 5.0 g/dL [facility] ALP [Catalytic activity/Vol] 85 U/L 32 - 126 U/L [facility] ALT [Catalytic activity/Vol] 13 U/L 10 - 52 U/L [facility] AST [Catalytic activity/Vol] 15 U/L 10 - 39 U/L [facility] Bilirubin [Mass/Vol] 0.8 mg/dL <1.5 [facility] Bilirubin.direct [Mass/Vol] 0.2 mg/dL <0.3 [facility] Interpretation and review of laboratory results Normal [facility] Protein [Mass/Vol] 7.3 g/dL 6.4 - 8.3 g/dL [facility] LIPASEon 05-15-2022 Lipase [Catalytic activity/Vol] 8 U/L Low 11 - 82 U/L [facility] No Panel Informationon 05-15 Interpretation and review of laboratory results Abnormal [facility] No Panel InformationOrdered By: Rey Bro on 05-15-2022 Interpretation and review of laboratory results Abnormal [facility] PROF 14(COMP METB)on 022 Albumin [Mass/Vol] 3.8 g/dL Normal 3.4-5.0 [facility] Comment on above: Performed By: #### U RTPCR #### [facility] [address] [place] [address] Dr. Dwight Waters Albumin/Globulin [Mass ratio] 1.1 {ratio} Normal [facility] Comment on above: Performed By: #### U RTPCR #### [facility] [address] [place] [address] Dr. Dwight Waters ALP [Catalytic activity/Vol] 92 U/L Normal 46-116 [facility] Comment on above: Performed By: #### U RTPCR #### [facility] [address] [place] [address] Dr. Dwight Waters ALT [Catalytic activity/Vol] 25 U/L Normal 16-63 [facility] Comment on above: Performed By: #### U RTPCR #### [facility] [address] [place] [address] Dr. Dwight Waters Anion gap [Moles/Vol] 14.6 mmol/L Normal [facility] Comment on above: Performed By: #### U RTPCR #### [facility] [address] [address] [address] Dwight Waters AST [Catalytic activity/Vol] 17 U/L Normal 15-37 [facility] Comment on above: Performed By: #### U RTPCR #### [facility] [address] [place] [address] Dr. Dwight Waters Bilirubin [Mass/Vol] 0.6 mg/dL Normal 0.2-1.0 [facility] Comment on above: Performed By: #### U RTPCR #### [facility] [address] [address] [address] Dwight Waters Calcium [Mass/Vol] 9.9 mg/dL Normal 8.5-10.1 [facility] Comment on above: Performed By: #### U RTPCR #### [facility] [address] [address] [address] Dwight Waters Chloride [Moles/Vol] 106 mmol/L Normal 98-107 [facility] Comment on above: Performed By: #### U RTPCR #### [facility] [address] [address] [address] Dwight Waters CO2 [Moles/Vol] 24.2 mmol/L Normal 21.0-32.0 [facility] Comment on above: Performed By: #### U RTPCR #### [facility] [address] [place] [address] Dr. Dwight Waters Creatinine [Mass/Vol] 1.58 mg/dL Critically high 0.70-1.30 [facility] Comment on above: Performed By: #### U RTPCR #### [facility] [address] [address] [address] Dwight Waters EGFR-AF TONGAN 56 mL/min/1.73m2 Critically low >=60 [facility] Comment on above: Performed By: #### U RTPCR #### [facility] [address] [place] [address] Dr. Dwight Waters EGFR-NON AF TONGAN 46 mL/min/1.73m2 Critically low >=60 [facility] Comment on above: Performed By: #### U RTPCR #### [facility] [address] [address] [address] Dwight Waters Globulin (S) [Mass/Vol] 3.5 g/dL Normal [facility] Comment on above: Performed By: #### U RTPCR #### [facility] [address] [address] [address] Dwight Waters Glucose [Mass/Vol] 162 mg/dL Critically high 74-106 [facility] Comment on above: Performed By: #### U RTPCR #### [facility] [address] [address] [address] Dwight Waters Potassium [Moles/Vol] 3.8 mmol/L Normal 3.5-5.1 [facility] Comment on above: Performed By: #### U RTPCR #### [facility] [address] [address] [address] Dwight Waters Protein [Mass/Vol] 7.3 g/dL Normal 6.4-8.2 [facility] Comment on above: Performed By: #### U RTPCR #### [facility] [address] [address] [address] Dwight Waters Sodium [Moles/Vol] 141 mmol/L Normal 136-145 [facility] Comment on above: Performed By: #### U RTPCR #### [facility] [address] [address] [address] Dwight Waters Urea nitrogen [Mass/Vol] 22.0 mg/dL Critically high 7.0-18.0 [facility] Comment on above: Performed By: #### U RTPCR #### [facility] [address] [address] [address] Dwight Waters Urea nitrogen/Creatinine [Mass ratio] 13.9 mg/mg Normal [facility] Comment on above: Performed By: #### U RTPCR #### [facility] [address] [address] [address] Dwight Waters Portable XR Chest Viewson Radiology Study observation (narrative) [facility] IMPRESSION: No acute cardiopulmonary disease OLOGY EXAM: [...] chest. IMPRESSION IMPRESSION: No acute cardiopulmonary disease [facility] Portable XR Chest ViewsOrder ed By: Vladislav Omer on 05-15-2022 [facility] URINE DIPSTICK; REFLEX MICRO SCOPY; REFLEX CULTURE PERFORMABLEon 05-15-2022 Appearance (U) Clear Clear [facility] Color (U) Yellow Yellow [facility] Glucose Test strip (U) [Mass/Vol] 100 mg/dL Abnormal Negative [facility] Ketones (U) [Mass/Vol] Negative Negative [facility] Leukocyte esterase Test strip Ql (U) Large Abnormal Negative [facility] Nitrite Ql (U) Negative Negative [facility] pH (U) 6.0 [pH] 5.0 - 7.0 [facility] Protein (U) [Mass/Vol] 100 mg/dL Abnormal Negative [facility] RBC (U) [#/Vol] Large Abnormal Negative [facility] Specific gravity (U) [Rel density] 1.010 [facility] Urobilinogen (U) [Mass/Vol] 0.2 E.U./dL 0.2 E.U/dL, 1.0 E.U/dL [facility] URINE MICROSCOPIC WITH REFLE X TO CULTUREOrdered By: Rey Bro on 05-15-2022 Bacteria LM Ql (Urine sed) ABSENT ABSENT [facility] Epithelial cells.squamous LM Ql (Urine sed) ABSENT 1/hpf = 1+, 2-5/hpf = 2+, 0/hpf = 0+, ABSENT [facility] RBC LM.HPF (Urine sed) [#/Area] /[HPF] Abnormal 0 - 2 /HPF [facility] WBC LM.HPF (Urine sed) [#/Area] 10-20 Abnormal 0 - 5 /HPF [facility] CT ABD/PELVIS WO CONon 05-12 CT ABD/PELVIS WO CON Begin Addendum #[address] Lund 3:25 PM EST 05/11/2022. Begin Addendum #2 IMPRESSION below should also contain the followin. 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 The [place] kidneys are progressively atrophic bilaterally compared to [...] of 06/14/2020 are no longer present. The [place] distal right ureter is decompressed beyond this [...] with surgical history for renal graft and [place] right urinary drainage, as a discrete ureteroneocystostomy is not identified, and the graft may be draining via a ureteroureterostomy. Urology consultation recommended. 3. The [place] kidneys are bilaterally atrophic, with right renal sinus calcifications consistent with nonobstructing right [place] renal calculi up to 6 mm. Normal [facility] CBC AUTO DIFFon 05-11-2022 BASO # 0.1 103/ul Normal 0.0-0.1 [facility] Comment on above: Performed By: #### U RTPCR #### [facility] [address] [address] [address] Dwight Waters Basophils/100 WBC (Bld) 0.8 % Normal 0.2-2.0 [facility] Comment on above: Performed By: #### U RTPCR #### [facility] [address] [address] [address] Dwight Waters EO # 0.2 103/ul Normal 0.0-0.7 [facility] Comment on above: Performed By: #### U RTPCR #### [facility] [address] [address] [address] Dwight Waters Eosinophils/100 WBC (Bld) 2.5 % Normal 0.9-7.0 [facility] Comment on above: Performed By: #### U RTPCR #### [facility] [address] [place] [address] Dr. Dwight Waters Erythrocyte distribution width (RBC) [Ratio] 12.5 % Normal 11.0-15.0 [facility] Comment on above: Performed By: #### U RTPCR #### [facility] [address] [place] [address] Dr. Dwight Waters Hematocrit (Bld) [Volume fraction] 48.3 % Normal 42.0-54.0 [facility] Comment on above: Performed By: #### U RTPCR #### [facility] [address] [place] [address] Dr. Dwight Waters Hemoglobin (Bld) [Mass/Vol] 15.3 g/dL Normal 14.0-18.0 [facility] Comment on above: Performed By: #### U RTPCR #### [facility] [address] [place] [address] Dr. Dwight Waters IG # 0.01 10e3/ul Normal 0.00-0.03 [facility] Comment on above: Performed By: #### U RTPCR #### [facility] [address] [place] [address] Dr. Dwight Waters IG % 0.2 % Normal 0.0-0.5 [facility] Comment on above: Performed By: #### U RTPCR #### [facility] [address] [place] [address] Dr. Dwight Waters LYMPH # 1.9 103/ul Normal 1.2-3.8 [facility] Comment on above: Performed By: #### U RTPCR #### [facility] [address] [place] [address] Dr. Dwight Waters Lymphocytes/100 WBC (Bld) 29.8 % Normal 20.5-60.0 [facility] Comment on above: Performed By: #### U RTPCR #### [facility] [address] [place] [address] Dr. Dwight Waters MANUAL DIFF REQ NO Normal [facility] Comment on above: Performed By: #### U RTPCR #### [facility] [address] [place] [address] Dr. Dwight Waters MCH (RBC) [Entitic mass] 28.2 pg Normal 25.9-34.0 [facility] Comment on above: Performed By: #### U RTPCR #### [facility] [address] [place] [address] Dr. Dwight Waters MCHC (RBC) [Mass/Vol] 31.7 g/dL Normal 29.9-35.2 [facility] Comment on above: Performed By: #### U RTPCR #### [facility] [address] [place] [address] Dr. Dwight Waters MCV (RBC) [Entitic vol] 89.1 fL Normal 80.0-94.0 [facility] Comment on above: Performed By: #### U RTPCR #### [facility] [address] [place] [address] Dr. Dwight Waters MONO # 0.6 103/ul Normal 0.3-0.8 [facility] Comment on above: Performed By: #### U RTPCR #### [facility] [address] [place] [address] Dr. Dwight Waters Monocytes/100 WBC (Bld) 9.0 % Normal 1.7-12.0 [facility] Comment on above: Performed By: #### U RTPCR #### [facility] [address] [place] [address] Dr. Dwight Waters NEUT # 3.6 103/ul Normal 1.4-6.5 [facility] Comment on above: Performed By: #### U RTPCR #### [facility] [address] [place] [address] Dr. Dwight Waters Neutrophils/100 WBC (Bld) 57.7 % Normal 43.0-75.0 [facility] Comment on above: Performed By: #### U RTPCR #### [facility] [address] [place] [address] Dr. Dwight Waters Platelet mean volume (Bld) [Entitic vol] 9.9 fL Normal 9.5-13.5 [facility] Comment on above: Performed By: #### U RTPCR #### [facility] [address] [place] [address] Dr. Dwight Waters PLT 249 103/ul Normal 150-450 [facility] Comment on above: Performed By: #### U RTPCR #### [facility] [address] [place] [address] Dr. Dwight Waters RBC 5.42 106/ul Normal 4.70-6.10 [facility] Comment on above: Performed By: #### U RTPCR #### [facility] [address] [place] [address] Dr. Dwight Waters WBC 6.3 103/ul Normal 4.0-11.0 [facility] Comment on above: Performed By: #### U RTPCR #### [facility] [address] [place] [address] Dr. Dwight Waters ER URINE PROFILEon 2 Bilirubin Ql (U) Unable to perform te sting due to color interference. Abnormal NEGATIVE [facility] Comment on above: Performed By: #### U RTPCR #### [facility] [address] [place] [address] Dr. Dwight Waters Clarity (U) TURBID Abnormal CLEAR [facility] Comment on above: Performed By: #### U RTPCR #### [facility] [address] [place] [address] Dr. Dwight Waters Color (U) RED Abnormal YELLOW [facility] Comment on above: Performed By: #### U RTPCR #### [facility] [address] [place] [address] Dr. Dwight Waters ERUAHD A micrscopic examina tion will be performed if indicated. Normal [facility] Comment on above: Performed By: #### U RTPCR #### [facility] [address] [place] [address] Dr. Dwight Waters Glucose Ql (U) Unable to perform te sting due to color interference. Abnormal NEGATIVE [facility] Comment on above: Performed By: #### U RTPCR #### [facility] [address] [place] [address] Dr. Dwight Waters Hemoglobin Ql (U) Unable to perform te sting due to color interference. Abnormal NEGATIVE [facility] Comment on above: Performed By: #### U RTPCR #### [facility] [address] [place] [address] Dr. Dwight Waters Ketones Ql (U) Unable to perform te sting due to color interference. Abnormal NEGATIVE [facility] Comment on above: Performed By: #### U RTPCR #### [facility] [address] [place] [address] Dr. Dwight Waters LEUKOCYTES Unable to perform te sting due to color interference. Abnormal NEGATIVE [facility] Comment on above: Performed By: #### U RTPCR #### [facility] [address] [place] [address] Dr. Dwight Waters Nitrite Ql (U) Unable to perform te sting due to color interference. Abnormal NEGATIVE [facility] Comment on above: Performed By: #### U RTPCR #### [facility] [address] [place] [address] Dr. Dwight Waters pH (U) 6.5 [pH] Normal 5-9 [facility] Comment on above: Performed By: #### U RTPCR #### [facility] [address] [place] [address] Dr. Dwight Waters SPEC GRAVITY 1.020 Normal 1.005-<=1.02 5 [facility] Comment on above: Performed By: #### U RTPCR #### [facility] [address] [place] [address] Dr. Dwight Waters UA PROTEIN Unable to perform te sting due to color interference. Normal NEGATIVE/ TRACE [facility] Comment on above: Performed By: #### U RTPCR #### [facility] [address] [place] [address] Dr. Dwight Waters UR MICRO IND INDICATED Normal [facility] Comment on above: Performed By: #### U RTPCR #### [facility] [address] [place] [address] Dr. Dwight Waters UROBILINOGEN Unable to perform te sting due to color interference. Normal 0.2 - 1.0 [facility] Comment on above: Performed By: #### U RTPCR #### [facility] [address] [place] [address] Dr. Dwight Waters PROF 14(COMP METB)on 022 Albumin [Mass/Vol] 3.8 g/dL Normal 3.4-5.0 [facility] Comment on above: Performed By: #### C MP #### [facility] [address] [place] [address] Dr. Dwight Waters Albumin/Globulin [Mass ratio] 1.1 {ratio} Normal [facility] Comment on above: Performed By: #### C MP #### [facility] [address] [place] [address] Dr. Dwight Waters ALP [Catalytic activity/Vol] 106 U/L Normal 46-116 [facility] Comment on above: Performed By: #### C MP #### [facility] [address] [place] [address] Dr. Dwight Waters ALT [Catalytic activity/Vol] 30 U/L Normal 16-63 [facility] Comment on above: Performed By: #### C MP #### [facility] [address] [place] [address] Dr. Dwight Waters Anion gap [Moles/Vol] 11.7 mmol/L Normal [facility] Comment on above: Performed By: #### C MP #### [facility] [address] [place] [address] Dr. Dwight Waters AST [Catalytic activity/Vol] 16 U/L Normal 15-37 [facility] Comment on above: Performed By: #### C MP #### [facility] [address] [place] [address] Dr. Dwight Waters Bilirubin [Mass/Vol] 0.6 mg/dL Normal 0.2-1.0 [facility] Comment on above: Performed By: #### C MP #### [facility] [address] [place] [address] Dr. Dwight Waters Calcium [Mass/Vol] 9.1 mg/dL Normal 8.5-10.1 [facility] Comment on above: Performed By: #### C MP #### [facility] [address] [address] [address] Dwight Waters CO2 [Moles/Vol] 27.4 mmol/L Normal 21.0-32.0 [facility] Comment on above: Performed By: #### C MP #### [facility] [address] [address] [address] Dwight Waters Creatinine [Mass/Vol] 1.18 mg/dL Normal 0.70-1.30 [facility] Comment on above: Performed By: #### C MP #### [facility] [address] [place] [address] Dr. Dwight Waters EGFR-AF TONGAN >60 Normal >=60 [facility] Comment on above: Performed By: #### C MP #### [facility] [address] [place] [address] Dr. Dwight Waters EGFR-NON AF TONGAN >60 Normal >=60 [facility] Comment on above: Performed By: #### C MP #### [facility] [address] [place] [address] Dr. Dwight Waters Globulin (S) [Mass/Vol] 3.6 g/dL Normal [facility] Comment on above: Performed By: #### C MP #### [facility] [address] [place] [address] Dr. Dwight Waters Glucose [Mass/Vol] 192 mg/dL Critically high 74-106 T [facility] Comment on above: Performed By: #### C MP #### [facility] [address] [place] [address] Dr. Dwight Waters Potassium [Moles/Vol] 4.1 mmol/L Normal 3.5-5.1 [facility] Comment on above: Performed By: #### C MP #### [facility] [address] [place] [address] Dr. Dwight Waters Protein [Mass/Vol] 7.4 g/dL Normal 6.4-8.2 [facility] Comment on above: Performed By: #### C MP #### [facility] [address] [place] [address] Dr. Dwight Waters Sodium [Moles/Vol] 142 mmol/L Normal 136-145 [facility] Comment on above: Performed By: #### C MP #### [facility] [address] [place] [address] Dr. Dwight Waters Urea nitrogen [Mass/Vol] 17.0 mg/dL Normal 7.0-18.0 [facility] Comment on above: Performed By: #### C MP #### [facility] [address] [place] [address] Dr. Dwight Waters Urea nitrogen/Creatinine [Mass ratio] 14.4 mg/mg Normal [facility] Comment on above: Performed By: #### C MP #### [facility] [address] [place] [address] Dr. Dwight Waters URINE MICROSCOPIC ONLYon BACTERIA NONE SEEN Normal NONE SEEN [facility] Comment on above: Performed By: #### U RTPCR #### [facility] [address] [place] [address] Dr. Dwight Waters Bacteria identified Cx Nom (U) NOT INDICATED Normal [facility] Comment on above: Performed By: #### U RTPCR #### [facility] [address] [place] [address] Dr. Dwight Waters CAST NONE SEEN Normal NONE SEEN [facility] Comment on above: Performed By: #### U RTPCR #### [facility] [address] [place] [address] Dr. Dwight Waters Crystals LM Nom (Urine sed) NONE SEEN Normal NONE SEEN [facility] Comment on above: Performed By: #### U RTPCR #### [facility] [address] [place] [address] Dr. Dwight Waters Epithelial cells LM Ql (Urine sed) RARE Normal NONE SEEN /RARE [facility] Comment on above: Performed By: #### U RTPCR #### [facility] [address] [place] [address] Dr. Dwight Waters MUCOUS NONE SEEN Normal NONE SEEN [facility] Comment on above: Performed By: #### U RTPCR #### [facility] [address] [address] [address] Dwight Waters RBC (U) [#/Vol] /uL Abnormal 0-2 [facility] Comment on above: Performed By: #### U RTPCR #### [facility] [address] [address] [address] Dwight Waters WBC NONE SEEN Normal NONE SEEN [facility] Comment on above: Performed By: #### U RTPCR #### [facility] [address] [address] [address] Dwight Waters K (Potassium)on 01-06-2020 Potassium [Moles/Vol] 4.4 mmol/L Normal 3.7-5.3 [facility] Comment on above: Performed By: #### K #### [facility] [address] [place] [address] [place], [place] [address] Flight Communications Officer: Kehinde Woodward MD Potassiumon 01-06-2020 Potassium [Moles/Vol] 4.4 mmol/L 3.7 - 5.3 mmol/L [facility] Work Phone: Hemoglobin and Hematocrit, B loodon 10-24-2019 Hematocrit (Bld) [Volume fraction] 23.6 % Low 40.7 - 50.3 % [place], [place] Hemoglobin (Bld) [Mass/Vol] 7.3 g/dL Low 13 - 17 g/dL [place], [place] Interpretation and review of laboratory results Abnormal [place] Hgb/Hcton 10-24-2019 Hematocrit (Bld) [Volume fraction] 23.6 % Low 40.7-50.3 [facility] Comment on above: Performed By: #### H H #### [facility] [address] [place] [address] Flight Communications Officer: Kehinde Woodward MD Hemoglobin (Bld) [Mass/Vol] 7.3 g/dL Low 13.0-17.0 [facility] Comment on above: Performed By: #### H H #### [facility] [address] [place] [address] Dr. [place], [place] [id number] [employer] Officer: Kehinde Woodward MD Hemoglobinon 08-27-2019 Hemoglobin (Bld) [Mass/Vol] 7.5 g/dL Low 13 - 17 g/dL [place] Hemoglobin (Bld) [Mass/Vol] 7.5 g/dL Low 13.0-17.0 [facility] Comment on above: Performed By: #### H GB #### [facility] [address] [place] [address] Dr. [place], [place] [id number] [employer] Officer: Kehinde Woodward MD Interpretation and review of laboratory results Abnormal [place], [place] Hemoglobinon 08-08-2019 Hemoglobin (Bld) [Mass/Vol] 8.3 g/dL Low 13 - 17 g/dL [place] Hemoglobin (Bld) [Mass/Vol] 8.3 g/dL Low 13.0-17.0 [facility] Comment on above: Performed By: #### H GB #### [address] [place], [place] [address] Flight Communications Officer: Kehinde Woodward MD Interpretation and review of laboratory results Abnormal [place] Hemoglobinon 08-04-2019 Hemoglobin (Bld) [Mass/Vol] 8.0 g/dL Low 13.0-17.0 [facility] Comment on above: Performed By: #### H GB #### [facility] [address] [place] [address] Dr. [place], [place] [id number] [employer] Officer: Kehinde Woodward MD Hemoglobin A1Con 08-03-2019 Glucose [Mass/Vol] mg/dL mg/dL [place], [place] Comment on above: The ADA and AACC rec ommend providing the estimated average glucose result to permit better patient understanding of their HBA1c result. HbA1c (Bld) [Mass fraction] % Low 4.8 - 5.9 % [place] HbA1c (Bld) [Mass fraction] % Low 4.8-5.9 [facility] Comment on above: Result Comment: The ADA and AACC recommend providing the estimated average glucose result to permit better patient understanding of their HBA1c result. Performed By: #### G LYHGB #### [facility] [address] [place] [facility] [employer] Officer: Kehinde Woodward MD Interpretation and review of laboratory results Abnormal [place] Hemoglobinon 08-01-2019 Hemoglobin (Bld) [Mass/Vol] 8.1 g/dL Low 13 - 17 g/dL [place] Hemoglobin (Bld) [Mass/Vol] 8.1 g/dL Low 13.0-17.0 [facility] Comment on above: Performed By: #### H GB #### [facility] [address] [place] [id number] [employer] Communications Officer: Kehinde Woodward MD Interpretation and review of laboratory results Abnormal [place] Hgb/Hcton 06-10-2019 Hematocrit (Bld) [Volume fraction] 24.3 % Low 40.7-50.3 [facility] Comment on above: Performed By: #### H H #### [facility] [address] [place] [facility] [employer] Communications Officer: Kehinde Woodward MD Hemoglobin (Bld) [Mass/Vol] 7.4 g/dL Low 13.0-17.0 [facility] Comment on above: Performed By: #### H H #### [facility] [address] [place] [facility] [employer] Communications Officer: Kehinde Woodward MD Hemoglobinon 06-01-2019 Hemoglobin (Bld) [Mass/Vol] 7.2 g/dL Low 13.0-17.0 [facility] Comment on above: Performed By: #### H GB #### [facility] [address] [place] [address] Flight Communications Officer: Kehinde Woodward MD K (Potassium)on 01-14-2019 Potassium [Moles/Vol] 3.6 mmol/L Low 3.7-5.3 [facility] Comment on above: Performed By: #### K #### [facility] [address] [place] [address] Flight Communications Officer: Kehinde Woodward MD Otherandrzej 10-19-2018 IMPRESSION: 1. Cirrh otic morphology of [...] Low 4.7 - 5.6 % LAB, [facility] HEP A AB, TOTAL (IGG+IGM)on [...] High LAB, [facility] TOXICOLOGY DRUG SCREEN, SERU [facility] 10-12-2018 Drugs of abuse panel - Blood by Screen method For Medical Purposes Only, Non-forensic, screen results are presumptive. No confirmatory testing will follow. Invalid Interpretation Code LAB, [facility] Comment on above: This Liquid Chromato graphy Mass Spectrometry (LC/MS/MS) test was developed and its performance characteristics determined by Toxicology Laboratory at [facility]. It has not been cleared [...] Amitriptyline(50), Amphetamine(250), Atenolol(500), Barbiturates(1000), Benzoylecgonine(50), Buprenorphine(50), Bupropion(25), Caffeine(85343), Chlordiazepoxide(50), Chlorpheniramine(100), Chlorpromazine(50), Citalopram(100), Clonazepam(200), Cocaine(25), Codeine(200), [...] LAB, [facility] TOXICOLOGY SCREEN URINE - UD [facility] 10-12-2018 Drugs identified Screen Nom (U) For Medical Purposes Only, Non-forensic, screen results are presumptive. No confirmatory testing will follow. Invalid Interpretation [facility] Comment on above: This Liquid Chromato graphy Mass Spectrometry (LC/MS/MS) test was developed and its performance characteristics determined by Toxicology Laboratory at [facility]. It has not been cleared [...] Amitriptyline(50), Amphetamine(250), Atenolol(500), Barbiturates(200), Benzoylecgonine(50), Buprenorphine(500), Bupropion(25), Caffeine(96308), Cannabinoids(THC)(50), Chlordiazepoxide(50), Chlorpheniramine(100), Chlorpromazine(50), Citalopram(100), Clonazepam(200), Cocaine(25), [...] Code 0 - 6000 mL LAB, [facility] Social History Date Type Detail Facility Start: 11-03-2023 Tobacco use and exposure Smokeless tobacco non-user [facility] Start: 11-02-2023 Alcohol Comment Former [facility] Start: 05-05-2022 End: 01-16-2023 Exposure to SARS-CoV-2 (event) Not sure [facility] Start: 01-16-2022 Sexual orientation Heterosexual (finding) [facility] Start: 09-06-2020 End: 03-24-2024 Alcohol intake Ex-drinker (finding) [facility] Start: 11-03-2018 Alcohol intake Current non-drinker of alcohol (finding) [place] Start: 11-03-2018 End: 03-24-2024 Alcohol intake No [facility] Start: 07-19-2018 End: 10-19-2018 Tobacco smoking status NHIS Former smoker [facility] Start: 10-19-2018 End: 03-24-2024 Cigarettes smoked current (pack per day) - Reported [facility] Start: 07-19-2018 Tobacco use and exposure Former user [facility] Start: 07-19-2018 Alcohol Comment stopped 05/14/2018 [facility] Start: 07-07-2018 Gender identity Identifies as male gender (finding) [facility] Start: 06-22-2018 Alcohol Comment Hx of alcoholism [place], [place] Start: 07-19-1988 End: 05-14-2018 History of tobacco use Current smoker [facility] Work Phone: Start: 07-19-1988 End: 05-14-2018 History of tobacco use Cigarette Smoker [facility] Work Phone: Start: 1970 Sex Assigned At Not on file [facility] Work Phone: End: 07-19-1994 History of tobacco use Chews Tobacco [facility] Work Phone: Within the last year , have you [...] to buy more. Never true [facility] Vital Signs Date Time Vital Sign Value Performing Clinician Facility 02-26-2024 09:07-0400 Diastolic blood pressure 56 mm[Hg] Candie Almaguer MD Work Phone: [facility] 02-26-2024 09:07-0400 Heart rate 65 /min Candie Almaguer MD Work Phone: [facility] 02-26-2024 09:07-0400 Systolic blood pressure 113 mm[Hg] Candie Almaguer MD Work Phone: [facility] 02-26-2024 09:06-0400 Body height 170.2 cm Candie Almaguer MD Work Phone: [facility] 02-26-2024 09:06-0400 Body mass index (BMI) [Ratio] 28.9 kg/m2 Candie Almaguer MD Work Phone: [facility] 02-26-2024 09:06-0400 Body weight 83.69 kg Candie Almaguer MD Work Phone: [facility] 02-26-2024 09:06-0400 Respiratory rate 20 /min Candie Almaguer MD Work Phone: [facility] 02-26-2024 09:06-0400 SaO2% (BldA) [Mass fraction] 97 % Candie Almaguer MD Work Phone: [facility] 01-23-2024 15:04-0500 Body temperature 97.9 [degF] Kevin Sage MD Work Phone: [facility] 01-23-2024 15:04-0500 Diastolic blood pressure 67 mm[Hg] Kevin Sage MD Work Phone: [facility] 01-23-2024 15:04-0500 Heart rate 51 /min Kevin Sage MD Work Phone: [facility] 01-23-2024 15:04-0500 Respiratory rate 16 /min Kevin Sage MD Work Phone: [facility] 01-23-2024 15:04-0500 SaO2% (BldA) [Mass fraction] 94 % Kevin Sage MD Work Phone: [facility] 01-23-2024 15:04-0500 Systolic blood pressure 151 mm[Hg] Kevin Sage MD Work Phone: [facility] 01-23-2024 10:46-0500 Body mass index (BMI) [Ratio] 30.94 kg/m2 Kevin Sage MD Work Phone: [facility] 01-23-2024 10:46-0500 Body weight 89.6 kg Kevin Sage MD Work Phone: [facility] 01-18-2024 11:21-0500 Body height 170.2 cm Kevin Sage MD Work Phone: [facility] 01-06-2024 09:04-0500 Body height 170.2 cm Zuly Bruno NP Work Phone: [facility] 01-06-2024 09:04-0500 Body mass index (BMI) [Ratio] 32.42 kg/m2 Zuly Aichholz [employer] Work Phone: [facility] 01-06-2024 09:04-0500 Body temperature 97.81 [degF] Zuly Annomer [employer] Work Phone: [facility] 01-06-2024 09:04-0500 Body weight 93.89 kg Zuly Tannerjose e [employer] Work Phone: [facility] 01-06-2024 09:04-0500 Diastolic blood pressure 70 mm[Hg] Zuly Tannerjose e [employer] Work Phone: [facility] 01-06-2024 09:04-0500 Heart rate 95 /min Zulytray Tannerjose e [employer] Work Phone: [facility] 01-06-2024 09:04-0500 Respiratory rate 17 /min Zuly Tannerjose e [employer] Work Phone: [facility] 01-06-2024 09:04-0500 SaO2% (BldA) [Mass fraction] 99 % Zuly Annomer [employer] Work Phone: [facility] 01-06-2024 09:04-0500 Systolic blood pressure 138 mm[Hg] Zuly Tannerjose e [employer] Work Phone: [facility] 09-11-2023 10:31-0400 Body temperature 97.81 [degF] Steve Yeison MBBS Work Phone: [facility] 09-11-2023 10:31-0400 Diastolic blood pressure 66 mm[Hg] Steve Yeison MBBS Work Phone: [facility] 09-11-2023 10:31-0400 Heart rate 70 /min Steve Yeison MBBS Work Phone: [facility] 09-11-2023 10:31-0400 Respiratory rate 20 /min Steve Yeison MBBS Work Phone: [facility] 09-11-2023 10:31-0400 SaO2% (BldA) [Mass fraction] 91 % Steve Yeison MBBS Work Phone: [facility] 09-11-2023 10:31-0400 Systolic blood pressure 129 mm[Hg] Steve Yeison MBBS Work Phone: [facility] 09-10-2023 15:50-0400 Body mass index (BMI) [Ratio] 31.99 kg/m2 Steve Yeison MBBS Work Phone: [facility] 09-10-2023 15:50-0400 Body weight 92.67 kg Steve Yeison MBBS Work Phone: [facility] 09-02-2023 07:32-0400 Body height 170.2 cm Steve Yeison MBBS Work Phone: [facility] 08-28-2023 13:33-0400 Body height 170.2 cm Steve Yeison MBBS Work Phone: [facility] 08-28-2023 13:33-0400 Body mass index (BMI) [Ratio] 32.12 kg/m2 Steve Yeison MBBS Work Phone: [facility] 08-28-2023 13:33-0400 Body temperature 97.3 [degF] Steve Yeison MBBS Work Phone: [facility] 08-28-2023 13:33-0400 Body weight 93.03 kg Steve Yeison MBBS Work Phone: [facility] 08-28-2023 13:33-0400 Diastolic blood pressure 41 mm[Hg] Steve Yeison MBBS Work Phone: [facility] 08-28-2023 13:33-0400 Heart rate 116 /min Steve Yeison MBBS Work Phone: [facility] 08-28-2023 13:33-0400 Systolic blood pressure 106 mm[Hg] Steve Yeison [employer] Work Phone: [facility] 06-12-2023 14:50-0400 Body mass index (BMI) [Ratio] 33.8 kg/m2 Rebeca Gutierrez [employer] Work Phone: [facility] 06-12-2023 14:50-0400 Body temperature 97.3 [degF] Rebeca Gutierrez [employer] Work Phone: [facility] 06-12-2023 14:50-0400 Body weight 97.89 kg Rebeca Gutierrez [employer] Work Phone: [facility] 06-12-2023 14:50-0400 Diastolic blood pressure 77 mm[Hg] Rebeca Gutierrez [employer] Work Phone: [facility] 06-12-2023 14:50-0400 Heart rate 76 /min Rebeca Gutierrez [employer] Work Phone: [facility] 06-12-2023 14:50-0400 Systolic blood pressure 146 mm[Hg] Rebeca Gutierrez [employer] Work Phone: [facility] 01-16-2023 08:57-0500 Body height 170.2 cm [facility] Work Phone: [facility] 01-16-2023 08:57-0500 Body mass index (BMI) [Ratio] 33.66 kg/m2 [facility] Work Phone: [facility] [facility] 01-16-2023 08:57-0500 Body temperature 97.3 [degF] [facility] Trans[facility] Hepatology 3 Work Phone: [facility] 01-16-2023 08:57-0500 Body weight 97.48 kg [facility] Hep[facility]ology 3 Work Phone: [facility] 01-16-2023 08:57-0500 Diastolic blood pressure 75 mm[Hg] [facility] Trans[facility] Hepatology 3 Work Phone: [facility] 01-16-2023 08:57-0500 Heart rate 76 /min [facility] Trans[facility] Hepatology 3 Work Phone: [facility] 01-16-2023 08:57-0500 Systolic blood pressure 142 mm[Hg] [facility] Transplant Hepatology 3 Work Phone: [facility] 09-10-2022 09:38-0400 Body height 170.2 cm Ryan Yepez MD Work Phone: [facility] 09-10-2022 09:38-0400 Body mass index (BMI) [Ratio] 33.67 kg/m2 Ryan Yepez MD Work Phone: [facility] 09-10-2022 09:38-0400 Body weight 97.52 kg Ryan Yepez MD Work Phone: [facility] 09-10-2022 09:38-0400 Diastolic blood pressure 83 mm[Hg] Ryan Yepez MD Work Phone: [facility] 09-10-2022 09:38-0400 Heart rate 64 /min Ryan Yepez MD Work Phone: [facility] 09-10-2022 09:38-0400 SaO2% (BldA) [Mass fraction] 96 % Ryan Yepez MD Work Phone: [facility] 09-10-2022 09:38-0400 Systolic blood pressure 129 mm[Hg] Ryan Yepez MD Work Phone: [facility] 07-07-2022 13:48-0400 Diastolic blood pressure 76 mm[Hg] Ryan Yepez MD Work Phone: [facility] 07-07-2022 13:48-0400 Heart rate 82 /min Ryan Yepez MD Work Phone: [facility] 07-07-2022 13:48-0400 SaO2% (BldA) [Mass fraction] 96 % Ryan Yepez MD Work Phone: [facility] 07-07-2022 13:48-0400 Systolic blood pressure 141 mm[Hg] Ryan Yepez MD Work Phone: 0(599)691-414151 [address] 06-27-2022 13:32-0400 Body height 170.2 cm Ryan Yepez MD Work Phone: 8(953)535-625251 [address] 06-27-2022 13:32-0400 Body mass index (BMI) [Ratio] 34.24 kg/m2 Ryan Yepez MD Work Phone: 0(534)217-961683 [place] [address] 06-27-2022 13:32-0400 Body temperature 98.6 [degF] Ryan Yepez MD Work Phone: 8(878)637-748151 [address] 06-27-2022 13:32-0400 Body weight 99.16 kg Ryan Yepez MD Work Phone: [facility] 06-27-2022 13:32-0400 Diastolic blood pressure 78 mm[Hg] Ryan Yepez MD Work Phone: [facility] 06-27-2022 13:32-0400 Heart rate 77 /min Ryan Yepez MD Work Phone: [facility] 06-27-2022 13:32-0400 SaO2% (BldA) [Mass fraction] 95 % Ryan Yepez MD Work Phone: [facility] 06-27-2022 13:32-0400 Systolic blood pressure 121 mm[Hg] Ryan Yepez MD Work Phone: [facility] 06-27-2022 10:52-0400 Body height 170.2 cm Rena Brewster RN [facility] 06-27-2022 10:52-0400 Body mass index (BMI) [Ratio] 34.46 kg/m2 Rena Brewster RN [facility] 06-27-2022 10:52-0400 Body temperature 98.2 [degF] Rena Brewster RN [facility] 06-27-2022 10:52-0400 Body weight 99.79 kg Rena Brewster RN [facility] 06-27-2022 10:52-0400 Diastolic blood pressure 73 mm[Hg] Rena Brewster RN [facility] 06-27-2022 10:52-0400 Heart rate 78 /min Rena Brewster RN [facility] 06-27-2022 10:52-0400 Respiratory rate 20 /min Rena Brewster RN [facility] 06-27-2022 10:52-0400 SaO2% (BldA) [Mass fraction] 97 % Renaanalilia Brewster RN [facility] 06-27-2022 10:52-0400 Systolic blood pressure 135 mm[Hg] Rena Brewster RN [facility] 06-12-2022 14:23-0400 Body mass index (BMI) [Ratio] 34.59 kg/m2 Steve LEIGH Work Phone: [facility] 06-12-2022 14:23-0400 Body temperature 97 [degF] Steve LEIGH Work Phone: [facility] 06-12-2022 14:23-0400 Body weight 100.2 kg Steve LEIGH Work Phone: [facility] 06-12-2022 14:23-0400 Diastolic blood pressure 66 mm[Hg] Steve LEIGH Work Phone: [facility] 06-12-2022 14:23-0400 Heart rate 63 /min Steve Yeison LEIGH Work Phone: [facility] 06-12-2022 14:23-0400 Systolic blood pressure 133 mm[Hg] Steve Farrari MBBS Work Phone: [facility] 05-20-2022 15:21-0400 Body temperature 97.9 [degF] Gian Villatoro MD Work Phone: [facility] 05-20-2022 15:21-0400 Diastolic blood pressure 64 mm[Hg] Gian Villatoro MD Work Phone: [facility] 05-20-2022 15:21-0400 Heart rate 55 /min Gian Villatoro MD Work Phone: 7(147)690-419743 [address] 05-20-2022 15:21-0400 Respiratory rate 15 /min Gian Villatoro MD Work Phone: [facility] 05-20-2022 15:21-0400 SaO2% (BldA) [Mass fraction] 95 % Gian Villatoro MD Work Phone: [facility] 05-20-2022 15:21-0400 Systolic blood pressure 145 mm[Hg] Gian Villatoro MD Work Phone: 4(131)721-366243 [address] 05-19-2022 12:15-0400 Body mass index (BMI) [Ratio] 35.87 kg/m2 Gian Villatoro MD Work Phone: [facility] 05-19-2022 12:15-0400 Body weight 103.92 kg iGan Villatoro MD Work Phone: 9(197)[phone] [place] [address] Comment on above: standing scale 05-16-2022 16:19-0400 Body height 170.2 cm Gian Villatoro MD Work Phone: 5(069)939-954137 [place] [address] 10-19-2018 08:44-0500 BMI (Body Mass Index) 26.58 kg/m2 [facility] Work Phone: 10-19-2018 08:44-0500 BP Diastolic 76 mm[Hg] [facility] Work Phone: 10-19-2018 08:44-0500 BP Systolic 144 mm[Hg] [facility] Work Phone: 10-19-2018 08:44-0500 Height 172.7 cm [facility] Work Phone: 10-19-2018 08:44-0500 Pulse (Heart Rate) 92 /min [facility] Work Phone: 10-19-2018 08:44-0500 Pulse Oximetry 99 % [facility] Work Phone: 10-19-2018 08:44-0500 Respiratory Rate 16 /min [facility] Work Phone: 10-19-2018 08:44-0500 Weight 79.29 kg [facility] Work Phone: 10-12-2018 09:50-0500 BMI (Body Mass Index) 27.24 kg/m2 [facility] Work Phone: 10-12-2018 09:50-0500 Body Temperature 98.6 [degF] [facility] Work Phone: 10-12-2018 09:50-0500 BP Diastolic 80 mm[Hg] [facility] Work Phone: 10-12-2018 09:50-0500 BP Systolic 157 mm[Hg] [facility] Work Phone: 10-12-2018 09:50-0500 Height 169.5 cm [facility] Work Phone: 10-12-2018 09:50-0500 Pulse (Heart Rate) 94 /min [facility] Work Phone: 10-12-2018 09:50-0500 Weight 78.29 kg [facility] Work Phone: Clinical Notes 06-14-2021 to 03-24-2024 Melody Reyez - 03/24/2024 4:12 PM EDTTaylor Jerry - 03/24/2024 4:12 PM EDTGabbi Rajput - 03/24/2024 4:12 PM EDTRmonster Reyez - 03/24/2024 4:12 PM EDTTaylor [place] - 03/24/2024 4:12 PM EDTAttachments Note Date & Type Note Facility 03-24-2024 History of Present illness Narrative [facility]: Call Information: Date and Time of Contact: 03/24/2024 4:14 PM Method of Contact: By Phone Contact Type: Prescriptions Contactor: [facility] Contactee: Patient Contact Outcome: Left message Shipping/Pickup: Medication Name: Prograf 0.2mg pack Contact Info: Specialty ([place]) [phone] [facility] [phone] [facility] [phone] David [phone] Bedside Delivery ([facility]) [phone] [facility]REACH ADVANCED: Call Information: Date and Time of Contact: 03/28/2024 3:58 PM Method of Contact: By Phone Contact Type: Prescriptions Contactor: [facility] Contactee: Patient Contact Outcome: Left message and Call back later Shipping/Pickup: Medication Name: Mycophenolate, prograf Contact Info: Specialty ([place]) [phone] [facility] [phone] [facility] [phone] David [phone] Bedside Delivery ([facility]) [phone] [facility] OUTREACH ADVANCED: Call Information: Method of Contact: By Phone Contact Type: Prescriptions Contactor: Patient Contactee: [facility] Shipping/Pickup: Medicare B Refill?: No Medication Name: Mycopheolate 360mg and Prograf Delivery Method: Ship Delivery Location: Home Signature Required: No Receive/Pickup Date: 04/04/2024 Shipping Address: [address] [place] [address] 179 Contact Info: Specialty ([place]) [phone] [facility] [phone] [facility] [phone] David [phone] Bedside Delivery ([facility]) [phone] documented in this encounter [facility] 03-24-2024 History of Present illness Narrative [facility]REACH [facility]ANC[facility]: Call Information: Date and Time of Contact: 03/24/2024 4:14 PM Method of Contact: By Phone Contact Type: Prescriptions Contactor: [facility] Contactee: Patient Contact Outcome: Left message Shipping/Pickup: Medication Name: Prograf 0.2mg pack Contact Info: Specialty ([place]) [phone] [facility] [phone] [facility] [phone] David [phone] Bedside Delivery ([facility]) [phone] [facility] OUTREACH ADVANCED: Call Information: Date and Time of Contact: 03/28/2024 3:58 PM Method of Contact: By Phone Contact Type: Prescriptions Contactor: [facility] Contactee: Patient Contact Outcome: Left message and Call back later Shipping/Pickup: Medication Name: Mycophenolate, prograf Contact Info: Specialty ([place]) [phone] [facility] [phone] [facility] [phone] David [phone] Bedside Delivery ([facility]) [phone] [facility]REACH ADVANCED: Call Information: Method of Contact: By Phone Contact Type: Prescriptions Contactor: Patient Contactee: [facility] Shipping/Pickup: Medicare B Refill?: No Medication Name: Mycopheolate 360mg and Prograf Delivery Method: Ship Delivery Location: Home Signature Required: No Receive/Pickup Date: 04/04/2024 Shipping Address: [address] [place] [address] 179 Contact Info: Specialty ([place]) [phone] [facility] [phone] [facility] [phone] David [phone] Bedside Delivery ([facility]) [phone] [facility]REACH [facility]VANC[facility]: Pre-Verification/Specialty Assessment/Disease [...] Review: Within normal limits Contact Info: Specialty ([place]) [phone] [facility] [phone] [facility] [phone] David [phone] Bedside Delivery ([facility]) [phone] [facility] History of Present illness Narrative [...] up del of broth Contact Info: Specialty ([place]) [phone] [facility] [phone] [facility] [phone] David [phone] Bedside Delivery ([facility]) [phone] [facility]REACH [facility]VANC[facility]: Call Information: Date and Time of Contact: 03/02/2024 3:49 PM Method of Contact: By Phone Contact Type: Prescriptions Contactor: [facility] Contactee: Patient Contact Outcome: Left message and Follow-up Shipping/Pickup: Medication Name: Myco 360mg and Prograf 0.2mg Contact Info: Specialty ([place]) [phone] [facility] [phone] [facility] [phone] [facility] [phone] Bedside Delivery ([facility]) [phone] [facility]REACH [facility]VANC[facility]: Call Information: Date and Time of Contact: 03/02/2024 4:08 PM Method of Contact: By Phone Contact Type: Prescriptions Contactor: [facility] Contactee: Patient Shipping/Pickup: Medicare B Refill?: No Medication Name: Myco 360 / prograf 0.2 Delivery Method: Ship Delivery Location: Home Signature Required: No Receive/Pickup Date: 03/03/2024 Shipping Address: [address] [place] [address] Contact Info: Specialty ([place]) [phone] [facility] [phone] [facility] [phone] [facility] [phone] Bedside Delivery ([facility]) [phone] documented in this encounter [facility] 02-26-2024 History of Present illness Narrative Patient [...] presents to the HF Clinic at the [facility] on 02/26/2024 for initial evaluation of [...] Bryant MD, PhD; Location: [facility] MAIN OR PLACEMENT NEPHROSTOMY CATHETER PERCUTANEOUS W/ IMAGE GUIDANCE 05/17/2022 Surgeon: Enzo Heart DO; Location: [facility] INTERVENTIONAL RADIOLOGY (VIR) LIVER TRANSPLANT, ORTHOTOPIC N/A 04/12/2020 Laterality: N/A; Surgeon: LU Palma; Location: [facility] SAME DAY SURGERY MAIN OR KIDNEY TRANSPLANT W/O HOONAH NEPHRECTOMY N/A 04/12/2020 Laterality: N/A; Surgeon: LU Palma; Location: [facility] SAME DAY SURGERY MAIN OR OTHER SURGICAL [...] qd Antithrombotic: no Statin: no ICD: NA AWNING CRAFTSMAN: NA CV Test results: ECHOCARDIOGRAM 01/18/2024 (Final) Interpretation Summary Left Ventricle: Chamber size is normal. Increased wall thickness. Concentric hypertrophy. Normal global systolic function. Regional wall motion is normal. Ejection fraction is normal (55 - 60%). Right Ventricle: Chamber size is normal. Systolic function is low normal. No hemodynamically significnat valve disease. Moderate pericardial effusion. There is no evidence of tamponade. [facility] (01/20/24) Hemodynamic Summary: Baseline Hemodynamics Systemic BP [...] will be BP control. Candie Almaguer M.D. snap attacher Advanced Heart Failure Program Division of Cardiovascular Medicine [facility] [email or web address] ph [phone] fax [phone] documented in this encounter [facility] 02-26-2024 Instructions Marsha Mckeon RN - 02/26/2024 9:30 AM EDT The following instructions were given today: Labs today Follow up with Dr. Almaguer as needed. Your after visit summary (AVS) is viewable in [facility] My Chart. Call RN if you have cardiac questions/concerns M-F 8 to 4:30 ; office # [phone], option 6, then option 2. Guidelines for home management: 1. Continue to monitor weight first thing each morning. 2. Report to the CHF CLINIC ([phone]) any significant weight change. Remember that weight [...] labs/tests run outside of the [facility] and you do not hear from us 1-2 days after they are performed, you must call us to ensure we received the results. Office fax # [phone]. No news does not necessarily mean that your tests are normal, it could mean we did not get the results. For questions/updates: please provide your name with spelling, date of and question or update All calls are prioritized and responses researched, if possible, prior to calls being returned. Call Scheduling for any appointment/procedure verification or changes [phone], option 7 or [facility] Heart Schedulers at [phone], option 1. documented in this encounter [facility] 01-23-2024 Nurse Note Jakob wrap & kerlix [...] to transport home on home oxygen supply. [facility] 01-23-2024 Miscellaneous Notes Jakob wrap & kerlix [...] Pain): verbalization of pain descriptors George Styles ([id number]) PRE OPERATIVE DIAGNOSIS High output congestive heart failure [I50.83] POST OPERATIVE DIAGNOSIS Post-Op Diagnosis Codes: * High output congestive heart failure [I50.83] PROCEDURE PERFORMED Procedure(s) (LRB): LIGATION ANGIOACCESS AVF (Left) Resection of large aneurysmic vein PRIMARY CLOSURE Yes INTRAOPERATIVE FINDINGS No significant abnormalities SURGEON Surgeons and Role: * Jyoti Bryant MD, PhD - Primary ANESTHESIOLOGIST Anesthesiologist: Celena Tiwari MD; Kehinde Gutierrez MD PROCESS CONTROL OPERATOR: David Jasso APRN-PROCESS CONTROL OPERATOR Enologist Assisting: Mini Khan MD SURGICAL STAFF Warp Tester: Zoila Lawrence RN Relief Warp Tester: Marimar Saravia RN Relief Scrub: Briseyda Self [...] patent, patient breathing easily. Report received from regional vice president surgical sales and report received from anesthesiology. Pt arrived [...] Axillary block. SURGEON(S): Jyoti Bryant MD, PHD OUTSIDE SALES ASSOCIATE: Mynor Fall MD ESTIMATED BLOOD LOSS: [...] Jyoti Bryant MD, PHD ATTENDING SHANNON/Constanza JOB: [id number] DOC: [id number] Patient has been asleep this shift. He [...] overnight coverage, Jasper Gastelum MD, via pager #[phone] Pt- George Styles. Sarah 1082. TM1. Was wondering if he can have his Melatonin order increased to 6mg. Per pt, he usually takes 8mg at home. -SAMI Duffy #[phone] Tati Charles RN Internal Medicine Daily Progress Note Patient: George Styles, 1970, [id number] Physician: Arelis Mera MD, PGY3, Pager #[phone], TM1 service Assessment/Plan: George Styles is a [...] MD Mr. Styles was admitted to [address] [place] [address]. On admission to R10, from outside facility a dual RN initial assessment of skin condition was performed by Izzy Gutierrez RN and Leroy Singleton RN. Skin Assessment: Skin within defined limits:Yes Jose Score: 20 Wound Vision Fashion Intern images obtained: No LDA Added: No Based [...] when available. documented in this encounter [facility] 01-23-2024 Nurse Note Home Oxygen [...] at 4L of oxygen is also required.) [facility] 01-23-2024 History of Present illness [...] mg Oral Daily Kelvin Pacheco MD, MBBS wildlife science professor Transplant nephrology Surgery Post-Op Check Note [...] monitor Leonel Harris DO General Surgery Pager [phone] CM went to bedside to talk with patient. Patient states he has home oxygen through [employer]. He uses 2.5 LNC around the clock. Patient states his brother will bring a tank for discharge. Anticipate patient will discharge tomorrow AM. Brother updated. Girish Oro RN, BSN Clinical Business Process Consultant Please note that I am a float case coordinator and may not cover the same service every day. Please call the main Case Management office at [phone] for up-to-date coverage. Verified patients identity using [...] Daily Progress Note Patient: George Styles, 1970, [id number] Physician: Yury Ozuna MD, PGY1, Pager #[phone], TM1 service Assessment/Plan: George Styles is a [...] by transplant surgery on 01/22 (NPO at ct, updated type & screen) S/p Liver-Kidney Transplant [...] with the Nutrition plan outlined in the Idea Worker s note. DVT prophylaxis with lovenox [...] in resident note. Kelvin Pacheco MD, MBBS wildlife science professor Transplant nephrology Patient seen and examined [...] Oral BID AC Kelvin Pacheco MD, JOSHBS wildlife science professor Transplant nephrology Images from the original note were not included. Internal Medicine Daily Progress Note Patient: George Styels, 1970, [id number] Physician: Yury Ozuna MD, PGY1, Pager #[phone], PJ2 service Assessment/Plan: George Styles is a 53 [...] with the Nutrition plan outlined in the Idea Worker s note. DVT prophylaxis with lovenox [...] Provider: Zuly Bruno NP Pharmacy: [facility] Other Comments: Patient reported his Last Home Dose of mycophenolate and tacrolimus was on 01/15/24 at 0700. Medications that need removed from Outside Medication Reconciliation list: Please remove all medications. Please feel free to contact me with any further questions. Name: Heidy Chatman Phone #: [phone] Date/Time: 01/19/2024 12:08 PM Time Spent: 15 minutes Associated attestation - Fidelina Alarcon RPH - 01/19/2024 12:41 PM EST Department of Pharmacy Admission Medication Reconciliation Note Patient: George Styles Room/Bed: 1082/A I have reviewed the home medication list with the Well Puller Head. The home medication list status is: complete. All changes to the home medication list have been updated in [facility]. Updated PROGRAM ARRANGER Med List: Prior to Admission Medications Prescriptions [...] with any further questions. Name: Fidelina Alarcon [facility] Phone #: [phone] Date/Time: 01/19/2024 12:41 PM Internal Medicine Daily Progress Note Patient: George Feliz Jensen, 1970, [id number] Physician: Yury Ozuna MD, PGY1, Pager #[phone], TB5 service Assessment/Plan: Acute Hypoxic Respiratory Insufficiency GARCIA, [...] 5mg CAD: non-obstructive CAD on [facility] 2019. [...] with the Nutrition plan outlined in the Idea Worker s note. DVT prophylaxis with lovenox [...] mg Oral Daily Kelvin Pacheco MD, MBBS wildlife science professor Transplant nephrology Internal Medicine Daily Progress Note Patient: George Styles, 1970, [id number] Physician: Yury Ozuna MD, PGY1, Pager #[phone], ZV1 service Assessment/Plan: Updates: - continued diuresis with [...] with the Nutrition plan outlined in the Idea Worker s note. DVT prophylaxis with lovenox [...] in resident note. Kelvin Pacheco MD, LU wildlife science professor Transplant nephrology Pt known to marketing intern from previous admissions. Provided emotional and spiritual support. Patient shared about: family support, medical course Director Content Marketing provided: - Supportive presence - Active listening - Validation of feelings/emotions Patient encouraged to request a marketing intern as needed. Chaplains are available in-house 24 hours a day and 7 days a week. For urgent matters in [facility], please page [phone]. If the request is not urgent, please enter a consult. Consults are responded to within 24 hours. Senior Staff Director Content Marketing Angie Singh Mdiv, [facility] [place] [phone] [email or web address] On-call TYLOR: call specialist David: 22/06 Pager ,[facility], and Brock Hernandez Pager [phone] 01/18/24 1342 Clinical Encounter Type Visited With Patient Visit Type Introduction Pastoral Time Spent 15 min Referral Other (See Comment) (rounding) Spiritual Assessment Emotional Observation Coping well;Anxiety Hope Observation Specific hope focus Support Observation By Family Interventions Provided Active listening;Supportive presence Facilitated Verbalization of feelings;Identifying support system;Identifying Sources of spiritual well-being Explored Expectations;Treatment decisions Wrapper Layer And Examiner Soft Work Education Wrapper Layer And Examiner Soft Work Service Available Yes Educated Patient Outcomes Patient [...] interaction. Name: Fidelina Alarcon RPH Phone #: [phone] Date/Time: 01/18/2024 9:56 AM Discharge Planning Patient [...] Yes Name and Contact information: Gian Styles ([phone]) Would you like to add additional adult [...] Is the patient from a facility or usp?: No Patient lives with: Alone Living Environment: [...] oxygen?: Yes Oxygen Provider and Contact : Watch[employer] LiterAxsome TherapeuticsFlow?: Order for oxygen use?: unknown at this [...] patient on Anticoagulation? : No [id number] [place] [address] - [address] [facility] [address] [facility] [id number] Special Procedures Technologist Does the patient or medical collections representative express financial concerns? : No Employed?: Disabled Coping/Stress Concerns about patient s coping and stress?: No Concerns about patient s caregiver s coping and stress?: No Values and Beliefs Cultural or baptism practices that may impact discharge planning and/or [...] Plan 1. Identified self and role as Business Process Consultant. 2. Confirmed and updated demographics and treatment team. 3. Business Process Consultant will continue to follow with medical team for any other additional discharge needs. Kasandra DON RN [facility] [phone] *Please note I am float and work Thursday and Thursday every other week. Please call [phone] for assist in my absence. Internal Medicine Daily Progress Note Patient: George Styles, 1970, [id number] Physician: Yury Ozuna MD, PGY1, Pager #[phone], TM service Assessment/Plan: Updates: - continue diuresis with [...] ordered 2D echo. Kevin Sage MD, MADISONN Field Broomer of Clinical Medicine [facility] documented in this encounter [facility] 01-23-2024 Plan of care note [...] Symptoms (Acute Pain): verbalization of pain descriptors [facility] 01-22-2024 Hospital Discharge instructions Arelis [...] your doctor for further instructions. Please call [phone], Option 1 or [phone] to schedule your appointment with the Heart Failure Clinic. Arelis Mera MD - 01/22/2024 3:08 PM EST You can change your dressing 48 hours from the procedure The following attachments cannot be sent through Care Everywhere.Heart Failure: Avoiding Triggers (South Korean)Heart Failure: Limiting Sodium ([place] Korean)Pain and Pain Control ([facility]) ([place])documented in this encounter [facility] 01-22-2024 Surgery Postoperative evaluation and management note George Styles ([id number]) PRE OPERATIVE DIAGNOSIS High output congestive heart failure [I50.83] POST OPERATIVE DIAGNOSIS Post-Op Diagnosis Codes: * High output congestive heart failure [I50.83] PROCEDURE PERFORMED Procedure(s) (LRB): LIGATION ANGIOACCESS AVF (Left) Resection of large aneurysmic vein PRIMARY CLOSURE Yes INTRAOPERATIVE FINDINGS No significant abnormalities SURGEON Surgeons and Role: * Jyoti Bryant MD, PhD - Primary ANESTHESIOLOGIST Anesthesiologist: Celena Tiwari MD; Kehinde Gutierrez MD PROCESS CONTROL OPERATOR: David Jasso APRN-PROCESS CONTROL OPERATOR Enologist Assisting: Mini Khan MD SURGICAL STAFF Warp Tester: Zoila Lawrence RN Relief Warp Tester: Marimar Saravia RN Relief Scrub: Briseyda Self Scrub Person: Cinda Mai RN Resident Assisting: Leonel Harris DO Fellow: Miki Mcgowan MD, MBBS COMPLICATIONS None ESTIMATED BLOOD LOSS Minimal SPECIMENS No specimen sent * No specimens in log * Jyoti Bryant MD, PhD January 22, 2024 1:34 PM [facility] Work Phone: 01-22-2024 Nurse Note Arrived to PACU assisted by anesthesiology. Connected to monitors. Turned side to side, OR linens removed, repositioned. Airway patent, patient breathing easily. Report received from regional vice president surgical sales and report received from anesthesiology. Pt arrived awake. VSS. Sats slightly low. Pulm rehab used. Sats currently 3lpm @ 93%. Pt states he uses CPAP nocturnally. A&Ox4. Nerve block left arm, elevated. [facility] 01-22-2024 Surgery Postoperative evaluation and management [...] Axillary block. SURGEON(S): Jyoti Bryant MD, PHD OUTSIDE SALES ASSOCIATE: Mynor Fall MD ESTIMATED BLOOD LOSS: [...] Jyoti Bryant MD, PHD ATTENDING SHANNON/Constanza JOB: [id number] DOC: [id number] [facility] 01-22-2024 Plan of care note Patient has [...] 1939 Plan Of Care Reviewed With: patient [facility] 01-20-2024 Consult note Associated Order (s): IP CONSULT TO SURGERY - TRANSPLANT (RENAL) Images from the original note were not included. TRANSPLANT SURGERY CONSULT NOTE: Consult: 01/20/2024, 4:03 PM Triage Licensed Practical Nurse: Starla Morris MD Reason for Consult: Requesting Dr Carson Bryant for AVF revision/closure given new onset high output heart failure George Styles is a 53 y.o. male CURRENT HOSPITALIZATION LOS: Admit Date: 01/16/2024 [facility] LOS: 4 days George Styles is [...] Enzo Heart DO; Location: [facility] INTERVENTIONAL RADIOLOGY (VIR) LIVER TRANSPLANT, ORTHOTOPIC N/A 04/12/2020 Laterality: N/A; Surgeon: LU Palma; Location: [facility] SAME DAY SURGERY MAIN OR KIDNEY TRANSPLANT W/O HOONAH NEPHRECTOMY N/A 04/12/2020 Laterality: N/A; Surgeon: LU Palma; Location: [facility] SAME DAY SURGERY MAIN OR OTHER SURGICAL [...] mg 650 mg Oral Q6H PRN Timothy Joesph MD Allopurinol (ZYLOPRIM) tablet 200 mg 200 [...] Studies: Labs-CBC: WBC/Hgb/Hct/Plts: 3.79/12.5/38.9/166 (01/20 611) Labs-Chem 7([facility]): Bun/Creat/Cl/CO2/Glucose: 15/1.12/105/28/88 (01/20 611) Na/K+/Phos/Mg/Ca: [...] seen and staffed with Dr. Mcgowan fellow collections associate Thank you, Starla Morris MD Associated attestation - Jyoti Bryant MD, PhD - 01/22/2024 10:54 AM EST I. Jyoti Bryant MD, PhD, have independently seen and examined the patient, reviewed the labs, discussed the patient with the fellow/resident and agree with the note. [facility] Work Phone: 01-20-2024 Consult note Associated Order (s): IP CONSULT TO SURGERY - TRANSPLANT (RENAL) Images from the original note were not included. TRANSPLANT SURGERY CONSULT NOTE: Consult: 01/20/2024, 4:03 PM Triage Licensed Practical Nurse: Starla Morris MD Reason for Consult: Requesting Dr Carson Bryant for AVF revision/closure given new onset high output heart failure George Styles is a 53 y.o. male CURRENT HOSPITALIZATION LOS: Admit Date: 01/16/2024 [facility] LOS: 4 days George Styles is [...] DAY SURGERY MAIN OR KIDNEY TRANSPLANT W/O HOONAH NEPHRECTOMY N/A 04/12/2020 Laterality: N/A; Surgeon: LU [...] Studies: Labs-CBC: WBC/Hgb/Hct/Plts: 3.79/12.5/38.9/166 (01/20 611) Labs-Chem 7([facility]): Bun/Creat/Cl/CO2/Glucose: 15/1.12/105/28/88 (01/20 611) Na/K+/Phos/Mg/Ca: [...] seen and staffed with Dr. Mcgowan fellow collections associate Thank you, Starla Morris MD Associated attestation - Jyoti Bryant MD, PhD - 01/22/2024 10:54 AM EST Beata Bryant MD, PhD, have independently seen and examined the patient, reviewed the labs, discussed the patient with the fellow/resident and agree with the note. Associated Order(s): IP CONSULT TO HEPATOBILIARY N [facility] Main Hepatology Consult WebExchange --> IM Consult Serv [facility] --> [facility] Main Hepatology consult [...] DAY SURGERY MAIN OR KIDNEY TRANSPLANT W/O HOONAH NEPHRECTOMY N/A 04/12/2020 Laterality: N/A; Surgeon: LU Palma; [facility]IN OR OTHER [...] (order for outpatient) Please SecureChat or Call ([phone]) for any questions. Await attending attestation for final recommendations. Hank Noel MD Division of Gastroenterology, Hepatology, and Nutrition Clinical Fellow, PGY-5 Pager: [phone] For urgent/stat calls or consults 5pm to 7am, please page the on-call GI fellow on QGenda. [facility]--> Internal Medicine--> Gastroenterology, Hepatology, & Nutrition--> 1st Call Janae Hatfield For urgent/stat calls or consults 7am to 5pm during the weekend, please page the on-call GI fellow on QGenda. [facility]--> Internal Medicine--> Gastroenterology, Hepatology, & Nutrition--> All Hep & East Wknd Cons Fel Day For follow up questions regarding this patient 7am to 5pm during the weekday, contact the Hepatology consults fellow or CARLOS A on QGenda. [facility]--> Internal Medicine--> Gastroenterology, Hepatology, & [...] Estrada MD, MSc documented in this encounter [facility] 01-19-2024 Nurse Note 01/19/24 0900 [...] rest, 95-96% when talking/moving. Paulette Cordon RN [facility] 01-19-2024 Nurse Note Paged overnight coverage, Jasper Gastelum MD, via pager #[phone] Pt- George Styles. Sarah 1082. TM1. Was wondering if he can have his Melatonin order increased to 6mg. Per pt, he usually takes 8mg at home. -SAIM Duffy #[phone] [facility] 01-18-2024 Consult note Associated Order (s): IP CONSULT TO HEPATOBILIARY N [facility] Main Hepatology Consult WebExchange --> IM Consult Serv [facility] --> [facility] Main Hepatology consult [...] Enzo Heart DO; Location: [facility] INTERVENTIONAL RADIOLOGY (VIR) LIVER TRANSPLANT, ORTHOTOPIC N/A 04/12/2020 Laterality: N/A; Surgeon: LU Palma; Location: [facility] SAME DAY SURGERY MAIN OR KIDNEY TRANSPLANT W/O HOONAH NEPHRECTOMY N/A 04/12/2020 Laterality: N/A; Surgeon: LU Palma; Location: [facility] SAME DAY SURGERY MAIN OR OTHER SURGICAL [...] (order for outpatient) Please SecureChat or Call ([phone]) for any questions. Await attending attestation for final recommendations. Hank Noel MD Division of Gastroenterology, Hepatology, and Nutrition Clinical Fellow, PGY-5 Pager: [phone] For urgent/stat calls or consults 5pm to 7am, please page the on-call GI fellow on QGenda. [facility]--> Internal Medicine--> Gastroenterology, Hepatology, & Nutrition--> 1st Call Janae Hatfield For urgent/stat calls or consults 7am to 5pm during the weekend, please page the on-call GI fellow on QGenda. [facility]--> Internal Medicine--> Gastroenterology, Hepatology, & Nutrition--> All Hep & East Wknd Cons Fel Day For follow up questions regarding this patient 7am to 5pm during the weekday, contact the Hepatology consults fellow or CARLOS A on QGenda. [facility]--> Internal Medicine--> Gastroenterology, Hepatology, & [...] (order for outpatient) Michael Estrada MD, MSc [facility] Work Phone: 01-16-2024 Plan of care note Internal Medicine Daily Progress Note Patient: George Styles, 1970, [id number] Physician: Arelis Mera MD, PGY3, Pager #[phone], TM2 service Assessment/Plan: George Styles is a 53 [...] MD, on rounds. Signed, Arelis Mera MD [facility] 01-16-2024 Nurse Note Mr. Styles was admitted to [address] [place] [address]. On admission to [facility], from outside facility a dual RN initial assessment of skin condition was performed by Izzy Gutierrez RN and Leroy Singleton RN. Skin Assessment: Skin within defined limits:Yes Jose Score: 20 Wound Vision Fashion Intern images obtained: No LDA Added: No Based [...] closest to nurses station when available. [facility] 01-16-2024 History and physical note Images from the original note were not included. Internal Medicine Admission History & Physical Patient: George Styles, 1970, [id number] Physician: Timothy Joseph MD, PGY1, Pager #[phone], TM 1 service Date of face to [...] Enzo Heart DO; Location: [facility] INTERVENTIONAL RADIOLOGY (VIR) LIVER TRANSPLANT, ORTHOTOPIC N/A 04/12/2020 Laterality: N/A; Surgeon: LU Palma; Location: [facility] SAME DAY SURGERY MAIN OR KIDNEY TRANSPLANT W/O HOONAH NEPHRECTOMY N/A 04/12/2020 Laterality: N/A; Surgeon: LU Palma; Location: [facility] SAME DAY SURGERY MAIN OR OTHER SURGICAL [...] itraconazole Fax results to: Dr. 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 Strength grossly [...] DVT prophylaxis with lovenox Disposition: admitted to [facility] Code status is Full Staffed with Timothy [...] Pierson, Luisa Steven, Renee Rivera, Daisha Max Wood Casket Assembler: José Miguel Garnica All Txt: 04/13/2020 (Kidney), [...] results found for: CYCLOSPORIN , CYCLOSPORIN2 , [id number] , CYCLORAND No results found for: SIROLIMUS [...] request in chart. Kevin Sage MD Pager [phone] [facility] 01-16-2024 History and physical note Images from the original note were not included. Internal Medicine Admission History & Physical Patient: George Styles, 1970, [id number] Physician: Timothy Joseph MD, PGY1, Pager #[phone], TM 1 service Date of face to [...] Enzo Heart DO; Location: [facility] INTERVENTIONAL RADIOLOGY (VIR) LIVER TRANSPLANT, ORTHOTOPIC N/A 04/12/2020 Laterality: N/A; Surgeon: LU Palma; Location: [facility] SAME DAY SURGERY MAIN OR KIDNEY TRANSPLANT W/O HOONAH NEPHRECTOMY N/A 04/12/2020 Laterality: N/A; Surgeon: LU Palma; Location: [facility] SAME DAY SURGERY MAIN OR OTHER SURGICAL [...] itraconazole Fax results to: Dr. 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 Strength grossly [...] DVT prophylaxis with lovenox Disposition: admitted to [facility] Code status is Full Staffed with Dr. [...] Pierson, Luisa Steven, Renee Rivera, Daisha Max Wood Casket Assembler: José Miguel Garnica All Txt: 04/13/2020 (Kidney), [...] results found for: CYCLOSPORIN , CYCLOSPORIN2 , [id number] , CYCLORAND No results found for: SIROLIMUS [...] request in chart. Kevin Sage MD Pager [phone] documented in this encounter [facility] 01-12-2024 History of Present illness [...] Name: Prograf 0.2 MG Contact Info: Specialty ([place]) [phone] [facility] [phone] [facility] [phone] [facility] [phone] Bedside Delivery ([facility]) [phone] [facility] RX OUTREACH ADVANCED: Call Information: Date and Time of Contact: 01/25/2024 10:23 AM Method of Contact: By Phone Contact Type: Prescriptions Contactor: [facility] Contactee: Patient Contact Outcome: Left message (prograf myco) Contact Info: Specialty ([place]) [phone] [facility] [phone] [facility] [phone] David [phone] Bedside Delivery ([facility]) [phone] documented in this encounter [facility] 01-12-2024 History of Present illness [...] Prograf 0.2 MG Contact Info: Specialty ([place]) [phone] [facility] [phone] [facility] [phone] [facility] [phone] Bedside Delivery ([facility]) [phone] [facility] RX OUTREACH ADVANCED: Call Information: Date and Time of Contact: 01/25/2024 10:23 AM Method of Contact: By Phone Contact Type: Prescriptions Contactor: [facility] Contactee: Patient Contact Outcome: Left message (prograf myco) Contact Info: Specialty ([place]) [phone] [facility] [phone] [facility] [phone] [facility] [phone] Bedside Delivery ([facility]) [phone] [facility] RX OUTREACH ADVANCED: Call Information: Date and Time of Contact: 01/27/2024 10:19 AM Method of Contact: By Phone Contact Type: Prescriptions Contactor: [facility] Contactee: Patient Contact Outcome: Left message (myco prograf) Contact Info: Specialty ([place]) [phone] [facility] [phone] [facility] [phone] David [phone] Bedside Delivery ([facility]) [phone] documented in this encounter [facility] 01-12-2024 History of Present illness [...] Name: Prograf 0.2 MG Contact Info: Specialty ([place]) [phone] [facility] [phone] [facility] [phone] [facility] [phone] Bedside Delivery ([facility]) [phone] [facility] RX OUTREACH ADVANCED: Call Information: Date and Time of Contact: 01/25/2024 10:23 AM Method of Contact: By Phone Contact Type: Prescriptions Contactor: [facility] Contactee: Patient Contact Outcome: Left message (prograf myco) Contact Info: Specialty ([place]) [phone] [facility] [phone] [facility] [phone] David [phone] Bedside Delivery ([facility]) [phone] [facility] RX OUTREACH ADVANCED: Call Information: Date and Time of Contact: 01/27/2024 10:19 AM Method of Contact: By Phone Contact Type: Prescriptions Contactor: [facility] Contactee: Patient Contact Outcome: Left message (myco prograf) Contact Info: Specialty ([place]) [phone] [facility] [phone] [facility] [phone] David [phone] Bedside Delivery ([facility]) [phone] [facility] RX OUTREACH ADVANCED: Call Information: Date and Time of Contact: 02/01/2024 3:22 PM Contact Type: Prescriptions Contactor: [facility] Contactee: Patient Contact Outcome: Left message Shipping/Pickup: Medication Name: Mycophenolate 360mg and Prograf 0.2mg Pack Contact Info: Specialty ([place]) [phone] [facility] [phone] [facility] [phone] David [phone] Bedside Delivery ([facility]) [phone] documented in this encounter [facility] 01-06-2024 History of Present illness [...] The neurologist wanted to send him to 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) documented in this encounter [facility] 10-06-2023 History of Present [...] ; Prograf 0.2 MG Contact Info: Specialty ([place]) [phone] Jakob [phone] [facility] [phone] David [phone] Bedside Delivery ([facility]) [phone] [facility] RX OUTREACH ADVANCED: Call Information: Date and Time of Contact: 10/23/2023 2:00 PM Method of Contact: By Phone Contact Type: Prescriptions Contactor: [facility] Contactee: Patient Contact Outcome: Left message and Call back later Shipping/Pickup: Medication Name: Mycophenolate 360mg and Prograf 0.2mg Contact Info: Specialty ([place]) [phone] [facility] [phone] [facility] [phone] David [phone] Bedside Delivery ([facility]) [phone] documented in this encounter [facility]23 Miscellaneous Notes Pt discharged home [...] the oxygen during the night. pt will sweet pickle maker his oxygen from [employer] medical supply, 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 This [...] Patient seen ambulating in the velazquez with BARREL TURNER. Patient was mildly short of breath on [...] & HR 114. Messaged Mainor Loomis, via [employer] secure chat, Temp 100.8. His tylenol order [...] short period of time. 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 Episode of [...] Critical Care Medicine Message Mainor Loomis, via [facility] secure chat, Good evening, just an [...] short period of time. 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 This morning, [...] [address] Loera here also (food production worker) Dr. Diaz aware of pt's increased oxygen [...] Mr. Styles was admitted to [address] [place] [address]. On admission to [facility], from home a [...] when available. documented in this encounter [facility] 09-11-2023 History of Present illness Narrative Provided follow-up emotional and spiritual support. Patient shared about rosemary of discharge and looking forward to seeing family Director Content Marketing provided: - Supportive presence - Active listening - Validation of feelings/emotions Patient encouraged to request a marketing intern as needed. Chaplains are available in-house 24 hours a day and 7 days a week. For urgent matters in [facility], please page [phone]. If the request is not urgent, please enter a consult. Consults are responded to within 24 hours. Senior Staff Director Content Marketing Angie Singh Mdiv, [facility] [place] [phone] [email or web address] 22/06 On-call Kirk: [phone] 22/06 Pager [facility], and Brock Hernandez Pager [phone] 09/11/23 1430 Clinical Encounter Type Visited With Patient Visit Type Follow-up Pastoral Time Spent 15 min Referral Other (See Comment) (rounding) Spiritual Assessment Spiritual Observation Spirituality helpful Emotional Observation Coping well Hope Observation Specific hope focus Support Observation By Family Interventions Provided Active listening;Supportive presence Facilitated Verbalization of feelings Explored Expectations Wrapper Layer And Examiner Soft Work Education Wrapper Layer And Examiner Soft Work Service Available Yes Educated Patient Plan of Care Continue Visiting PRN Images from the original note were not included. [facility] ([facility]) Note: Non-Verbal Med Rec [facility] received the following discharge prescription(s): Total cost is $0. I have reviewed the Discharge Rx Reconciliation Report. The discharge prescription(s) will be delivered to the patient on 09/11/2023. Dimitrios Gurrola [facility],PharmD Specialty ([place]) [phone] Jakob [phone] Jakob Bedside Delivery [phone] [facility] [phone] [facility] Bedside Delivery [phone] David [phone] David Bedside Delivery [phone] [place] [phone] [place] [phone] Internal Medicine Daily Progress Note Patient: George Styles, 1970, [id number] Physician: Evan Kelly MD, PGY-1, TM1 service Subjective/Interval History: Patient continues to require oxygen overnight for desaturations. With insurance limitations, only accepting agency to provide home oxygen backed out. After calling them to discuss, Lynn stated she would be willing to have patient drive to their facility to sweet pickle maker supplies, however they close at 5pm. 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 Images from the original note were not included. Final Discharge Planning and Transportation Final Discharge Planning Discharge Disposition: Home Services at Discharge: Outpatient clinical services (ie: lab draws, transfusions, injectables) (Home Oxygen by [employer]) Selected Continued Care - Admitted Since 08/28/2023 Durable Medical Equipment Coordination complete. Service Provider Selected Services Address Phone Fax Patient Preferred [employer] D[employer] Medical Equipment [address] [facility] [address] Internal Comment last updated by Lora Lawrence RN 09/10/2023 1334 Correct contact information: [employer] [address] [place] [address] [place] [address] [place] [address] market risk specialist- you do not need to call at discharge, I already notified the company. Addendum 1520 [employer] notified this CM they are out of patient's insurance area and will not be able to service this patient at time of discharge. Provider notified. Addendum [phone] Dr Kelly called [employer] spoke to Lynn and she said they are willing to accept patient if the patient would drive to the [place] office and sweet pickle maker the supplies. Patient is willing to do [...] Lora Colón RN, MSN, CCM, CMCN Clinical Business Process Consultant- [facility] Transplant #[phone] Department of Pharmacy Transplant Note Patient: George [...] dose adjustment Name: Matt Kramer RPh,PharmD Phone: [phone] Date/Time: 09/10/2023 11:33 AM This CM sent referral via reQwip for O2 concentrator to 4 agencies Start date today Timer set for 9400 [employer] [facility] [facility] [employer] Addendum [id number] One accepting company reserved in [email or web address] [address] [place] [address] [address] [place] [address] Lora Colón RN, MSN, [facility], [facility] Clinical Business Process Consultant- R10 Transplant #[phone] NUTRITION FOLLOW-UP Nutrition Plan of Care: 1. Continue current diet order. 2. No oral supplements warranted at this time. 3. Monitor for significant weight changes. Monitor GI, skin integrity. 4. Monitor and encourage po intakes with goal of average po being 75-100%. 5. floor tech to follow. ___ Met with patient [...] Will continue to monitor. Cecilia Mattson DTR Pager:[phone] Transplant Infectious Disease (Team 3) Progress Note [...] sign off. Please Epic message or page [phone] with questions. 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 His saint paul kidney disease was noted to be presumed [...] to follow. Please Epic message or page [phone] with questions. 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 [...] to follow. Please Epic message or page [phone] with questions. Ann Marie Haskins MD PGY-4, [...] he continues to improve. Please message via Dynadmic secure chat or page with any questions or concerns. Evan White DO Field Broomer Division of Infectious Disease Transplant Infectious Disease [...] to follow. Please Epic message or page [phone] with questions. Evan White DO Transplant Infectious Diseases Images from the original note were not included. Pulmonary/Critical Care Medicine Daily Progress Note Reason for Consultation: bronch for infectious workup Requesting Physician: Dr. Sage CURRENT HOSPITALIZATION: Admit Date: 08/28/2023 [facility] LOS: 9 days Impression 1. Acute [...] and interpreted reviewed the radiographic data in [employer]. 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 Pulmonary/Critical Care Medicine Daily Progress Note Reason for Consultation: bronch for infectious workup Requesting Physician: Dr. Sage CURRENT HOSPITALIZATION: Admit Date: 08/28/2023 [facility] LOS: 8 days Impression 1. Acute [...] and interpreted reviewed the radiographic data in [employer]HIS/[employer]. Acute Occupational Therapy Evaluation Prior to Admission [...] Assessment: Transfer Assessment: Sit to Stand Transfer [place] Level: Sit->Stand: independent Skilled Intervention/Details: Sit->Stand: x1 from EOB, x1 from toilet Stand to Sit Transfer [place] Level: Stand->Sit: independent Skilled Intervention/Details: Stand->Sit: x1 to toilet, x1 to EOB Functional Mobility: Functional Mobility [place] Level: Functional Mobility/Gait: independent Ambulation Distance (Feet): 20 Skilled Intervention/Details - Functional Mobility/Gait: pt performed functional mobility to/from RR w/ no overt LOB Outcome Score(s): CURRENT [facility] Daily Activity Inpatient Short Form Putting on/Taking Off Lower Body Clothin - A Little Assistance Bathin - A Little Assistance Toiletin - A Little Assistance Putting on/Taking Off Upper Body Clothin - No Assistance Groomin - No Assistance Eatin - No Assistance CURRENT [facility] Activity Raw Score: 21 CURRENT [facility] Activity Functional Limitation/Modifier: 32.79% Currently Impaired in [...] Acute Physical Therapy Evaluation Prior to Admission [facility] score(s): PRIOR LEVEL AM-PAC Mobility Raw [...] Intact Mobility Assessment: Supine to Sit Mobility [place] Level: Supine->Sit: modified independence Bed Features/Set-up: Supine->Sit: Head of bed elevated Sit to Supine Mobility [place] Level: Sit->Supine: not tested Balance: Sitting Balance [...] environment. Transfer Assessment: Sit to Stand Transfer [place] Level: Sit->Stand: independent Skilled Intervention/Details: Sit->Stand: From EOB x 2 without difficulty. Stand to Sit Transfer [place] Level: Stand->Sit: independent Assistive Device: Stand->Sit: armed chair Skilled Rationale: Verbal cues, Positioning Gait/Functional Mobility: Gait Assessment [place] Level: Gait: stand-by assist Assistive Device: Gait: rollator Ambulation Distance (Feet): 400 Gait Deviations Identified: decreased grace, decreased gait speed Gait Skilled Rationale: verbal, upright posture, increase step length, increase foot clearance Skilled Intervention/Details - Gait: Reasonable foot clearnce without loss of balance but endorsing dyspnea as 6-7/10. 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 Please Epic message or page [phone] with questions. Evan White DO Transplant Infectious Diseases Images from the original note were not included. 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 Please Epic message or page [phone] with questions. 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 Provided emotional and spiritual support. Patient shared about: - Source of Rosemary: Camping/Fishing/Family - Spirituality/Lutheran Affiliation: raised Sikh - Family Support/history - Experience with illness/hospital course - Hopes for healing/future Director Content Marketing provided: - Supportive presence - Active listening - Validation of feelings/emotions - Pledged prayer Patient encouraged to request a marketing intern as needed. Chaplains are available in-house 24 hours a day and 7 days a week. For urgent matters in [facility], please page [phone]. If the request is not urgent, please enter a consult. Consults are responded to within 24 hours. Senior Staff Director Content Marketing Angie Singh Mdiv, [facility] Kirk [phone] [email or web address] 22/06 On-call Kirk: [phone] 22/06 Pager ,BSLydia, and Brock Hernandez Pager [phone] 09/02/23 111 Clinical Encounter Type Visited With Patient Visit Type Introduction Pastoral Time Spent 15 min Referral Other (See Comment) (rounding) Spiritual Assessment Spiritual Observation Spirituality helpful Emotional Observation Coping well Hope Observation Specific hope focus Support Observation By Family Interventions Provided Active listening;Supportive presence Facilitated Verbalization of feelings Explored Expectations Wrapper Layer And Examiner Soft Work Education Wrapper Layer And Examiner Soft Work Service Available Yes Educated Patient Outcomes Patient Outcomes Reduced distress Plan of Care Continue Visiting PRN NUTRITION RISK SCREENING NOTE Nutrition Plan of Care: 1. Continue current diet order. 2. No oral supplements warranted at this time. 3. Monitor for significant weight changes. Monitor GI and skin integrity. 4. Monitor and encourage po intakes with goal of average po being 100%. 5. floor tech to follow. George Styles is a 53 y.o. 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 His post-transplant course was noteworthy for nephrostomy tube (05/17/2022-09/10/2022) due to concern for ureteral stone. He presents as a direct admission for fever, cough, for infectious workup. Pt unavailable and information obtained via chart review Undergraduate Advisor Screening Pt's appetite is good. Pt with [...] with meds Food Allergies reviewed:Shellfish Cultural or Lutheran Restrictions/Preferences: None GI: Last Bowel Movement: 09/01/23 [...] time. Will continue to monitor. 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 Kevin Sage MD Pager [phone] Summary: Pharmacy Med Rec Department of Pharmacy [...] Provider: Zuly Bruno NP Pharmacy: [facility] Other Comments: Patient reported his Last Home Dose of mycophenolate & tacrolimus was on 08/28/23 at 0900. Patient reported he was taking Bactrim and benzonatate for fevers and a cough he was having. Please feel free to contact me with any further questions. Name: Heidy Chatman Phone #: [phone] Date/Time: 09/01/2023 2:01 PM Time Spent: 15 minutes Associated attestation - Matt Kramer RPh,PharmD - 09/01/2023 2:28 PM EDT Department of Pharmacy Admission Medication Reconciliation Note Patient: George Styles Room/Bed: 1062/A I have reviewed the home medication list with the Well Puller Head. All changes to the home medication list have been updated in IHIS. Updated PROGRAM ARRANGER Med List: Prior to Admission Medications Prescriptions [...] questions. Name: Matt Kramer RPh,PharmD Phone #: [phone] Date/Time: 09/01/2023 2:28 PM Transplant Infectious Disease [...] crypto antigen, EBV PCR -follow pending histo, [id number] labs These recommendations were discussed with the primary team. Transplant ID (Team 3) will continue to follow. Please Epic message or page [phone] with questions. 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 [...] Yes Name and Contact information: Gian Styles ([phone]) Reviewed and Updated in Demographics? : Yes Outpatient Providers Does patient have a primary care physician? : Yes When was the patient's last PCP visit?: > 30 days Does the patient follow any specialists?: No Reviewed and updated Care Team?: Yes Patient Care Team: Zuly Bruno CNP as PCP - General Environment/Caregivers Is the patient from a facility or usp?: No Patient lives with: Alone Living Environment: [...] patient on Anticoagulation? : No [id number] - [place] [address] [address] [facility] [address] [facility] [place] [address] Special Procedures Technologist Does the patient or medical collections representative express financial concerns? : No Employed?: Disabled Coping/Stress Concerns about patient s coping and stress?: No Concerns about patient s caregiver s coping and stress?: No Values and Beliefs Cultural or baptism practices that may impact discharge planning and/or [...] Plan 1. Identified self and role as Business Process Consultant. 2. Confirmed and updated demographics and treatment team. 3. Business Process Consultant will continue to follow with medical team/pt for any other additional discharge needs. Kasandra DON RN [facility] [phone] *Please note I am float CM and work Thursday and Thursday every other week. Please call [phone] for assist in my absence. 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 You will need to sweet pickle maker the oxygen concentrator when you leave the [...] your fist check on Thursday, September 14! Lauerl Serrano MD, PhD - 09/10/2023 12:23 PM EDT Resume previous activity as tolerated. You will be wake after the hospitalization, but is important to continue to try to move every day. Laurel Serrano MD, PhD - 09/10/2023 12:23 PM EDT Resume your previous diet. Try to eat a good variety of foods and focus on healthy foods. documented in this encounter [facility] 09-01-2023 Consult note Associated Order (s): IP CONSULT TO PULMONOLOGY Pulmonary Medicine Inpatient Consultation Reason for Consultation: bronch for infectious workup Requesting Physician: Dr. Sage Pulmonary Attending Physician: Dr. 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 Other histories as documented in the [...] ill contacts. He traveled to [place] to [facility] in May. REVIEW OF SYSTEMS A [...] GUIDANCE 05/17/2022 Surgeon: Enzo Heart DO; [facility] INTERVENTIONAL RADIOLOGY (VIR) LIVER TRANSPLANT, ORTHOTOPIC N/A 04/12/2020 Laterality: N/A; Surgeon: LU Palma; Location: [facility] SAME DAY SURGERY MAIN OR KIDNEY TRANSPLANT W/O HOONAH NEPHRECTOMY N/A 04/12/2020 Laterality: N/A; Surgeon: LU Palma; Location: [facility] SAME DAY SURGERY MAIN OR OTHER SURGICAL [...] Alamo MD I can be reached via Dynadmic secure message (preferred) or Pager #[phone] documented in this encounter [facility] 08-28-2023 History and physical note Images from the original note were not included. Internal Medicine Admission History & Physical Patient: George Styles, 1970, [id number] Physician: Airc Turner MD, PGY1, Pager #[phone], TM service Date of face to face [...] So he went to see the transplant meat service team member. He was found elevated Cr and asked [...] Appetite is ok now. Urine is about 2649-3538 ml every day. Stool every day, no [...] Enzo Heart DO; Location: [facility] INTERVENTIONAL RADIOLOGY (VIR) LIVER TRANSPLANT, ORTHOTOPIC N/A 04/12/2020 Laterality: N/A; Surgeon: LU Palma; Location: [facility] SAME DAY SURGERY MAIN OR KIDNEY TRANSPLANT W/O HOONAH NEPHRECTOMY N/A 04/12/2020 Laterality: N/A; Surgeon: LU Palma; Location: 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 Kevin Sage MD Pager [phone] documented in this encounter [facility] 08-28-2023 History of Present illness Narrative Images from the original note were not included. 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 Wood Casket Assembler: Anayeli Burt Date of Liver Transplant: 04/13/2020 (Kidney), 04/13/2020 (Liver) 3 years 4 months post Liver/Kidney Transplant Primary Disease: Hypertensive Nephrosclerosis Transplant Workday Consultant: Erma Roe/ Daisha Max Primary Care physician: [...] faMOTIdine === None Specified Preferred Lab: [facility] Change in lab frequency / new [...] 12 hours. ADDITIONAL INFORMATION: None Specified, [id number] [place] [address] - [address] [facility] [address] [facility] [address] [facility] [address] [facility] [address] [id number] [place] [address] [address] [facility] [address] [facility] [address] [facility]ob [address], [place] [address] [facility] [address] ROS and SCREEN: Chest Pain: negative Cough: [...] PHYSICIAN: I saw George Styles at the [facility] on 08/28/2023. Patient is a 53 y.o. 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 INTERVENTIONAL RADIOLOGY (VIR) LIVER TRANSPLANT, ORTHOTOPIC N/A 04/12/2020 Laterality: N/A; Surgeon: LU Palma; Location: [facility] SAME DAY SURGERY MAIN OR KIDNEY TRANSPLANT W/O HOONAH NEPHRECTOMY N/A 04/12/2020 Laterality: N/A; Surgeon: LU Palma; Location: [facility] SAME DAY SURGERY MAIN OR OTHER SURGICAL [...] you have any questions. Steve Munoz MD chief engineer research Division of Nephrology [facility] documented in this encounter [facility] 08-28-2023 Instructions Mainor Busby RN - 08/28/2023 2:15 PM EDT - Admission for fevers, cough, and night sweats documented in this encounter [facility] 08-19-2023 History of Present illness Narrative [facility]RE[facility]: Call Information: Date and Time of Contact: 08/19/2023 2:52 PM Method of Contact: By Phone Contact Type: Prescriptions Contactor: [facility] OP Contactee: Patient Shipping/Pickup: Medicare B Refill?: No Medication Name: Tacro 0.5mg Delivery Method: Air Delivery Location: Home Signature Required: No Mailing/Pickup Date: 08/25/2023 Shipping Address: [address] [place] [address] Contact Info: Specialty ([place]) [phone] [facility] [phone] [facility] [phone] David [phone] Bedside Delivery ([facility]) [phone] documented in this encounter [facility] 06-12-2023 History of Present illness Narrative Images from the original note were not included. George Styles is a 53 y.o. 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 No longer follows with a local meat service team member. History of Present Illness: Since George was [...] and lab results. Rebeca Gutierrez MSN, RN, BELL STAFF-BC, CCTN Certified Nurse Practitioner Comprehensive Transplant Center [facility] [address] [facility] [address] documented in this encounter [facility] 06-12-2023 Instructions JEANNA Hess - 06/12/2023 3:00 PM EDT No change in immunosuppression. documented in this encounter [facility] 06-10-2023 History of Present illness Narrative [facility]RE[facility]: Call Information: Method of Contact: By Phone Contact Type: Prescriptions Contactor: [facility] OP Contactee: Patient Contact Outcome: Left message Shipping/Pickup: Medication Name: Mycophenolate sod 180 mg Contact Info: Specialty ([place]) [phone] Jakob [phone] [facility] [phone] David [phone] Bedside Delivery ([facility]) [phone] [facility]REACH ADVANCED: Call Information: Date and Time of Contact: 06/12/2023 9:43 AM Method of Contact: By Phone Contact Type: Prescriptions Contactor: [facility] OP Contactee: Patient Contact Outcome: Left message and Follow-up Shipping/Pickup: Medicare B Refill?: No Medication Name: Myco 180 Contact Info: Specialty ([place]) [phone] Jakob [phone] [facility] [phone] David [phone] Bedside Delivery ([facility]) [phone] [facility] OP RX OUTREACH ADVANCED: Call Information: Date and Time of Contact: 06/12/2023 10:08 AM Method of Contact: By Phone Contact Type: Prescriptions Contactor: [facility] OP Contactee: Patient Shipping/Pickup: Medicare B Refill?: No Medication Name: Mycophenolate 180mg DR Delivery Method: Air Delivery Location: Home Signature Required: No Mailing/Pickup Date: 06/17/2023 Shipping Address: [address] [place] [address] Contact Info: Specialty ([place]) [phone] [facility] [phone] [facility] [phone] David [phone] Bedside Delivery ([facility]) [phone] documented in this encounter [facility] 04[facility]13[facility]2023 Note [place] [facility] Subjective George Styles is a 53 y.o. [...] on (more content not included)... [facility] 03-12-2023 History of Present illness Narrative [facility] RX OUTREACH ADVANCED: Call Information: Date and Time of Contact: 03/12/2023 10:34 AM Method of Contact: By Phone Contact Type: Prescriptions Contactor: [facility] Contactee: Patient Shipping/Pickup: Medicare B Refill?: No Medication Name: Mycophenoloate sod 360 mg prednisone 5mg Delivery Method: Air Delivery Location: Home Signature Required: No Mailing/Pickup Date: 03/16/2023 Shipping Address: [address] [place] [address] Contact Info: Specialty (Yanci) [phone] Jakob [phone] [facility] [phone] [facility] [phone] Bedside Delivery ([facility]) [phone] [facility] RX OUTREACH ADVANCED: Call Information: [...] No Mailing/Pickup Date: 03/19/2023 Shipping Address: [address] [facility] [address] Contact Info: Specialty (Yanci) [phone] [facility] [phone] [facility] [phone] David [phone] Bedside Delivery ([facility]) [phone] documented in this encounter [facility] 03-10-2023 History of Present illness Narrative [facility] RX OUTREACH ADVANCED: Call Information: Date and Time of Contact: 03/10/2023 12:00 PM Method of Contact: By Phone Contact Type: Prescriptions Contactor: [facility] Contactee: Patient Contact Outcome: Left message and Call back later Shipping/Pickup: Medication Name: Mycophenolate ; Tacrolimus Contact Info: Specialty (Yanci) [phone] [facility] [phone] [facility] [phone] David [phone] Bedside Delivery ([facility]) [phone] documented in this encounter [facility] 03-10-2023 History of Present illness Narrative [facility] RX OUTREACH ADVANCED: Call Information: Date and Time of Contact: 03/10/2023 12:00 PM Method of Contact: By Phone Contact Type: Prescriptions Contactor: [facility] Contactee: Patient Contact Outcome: Left message and Call back later Shipping/Pickup: Medication Name: Mycophenolate ; Tacrolimus Contact Info: Specialty (Yanci) [phone] [facility] [phone] [facility] [phone] David [phone] Bedside Delivery ([facility]) [phone] [facility] RX OUTREACH ADVANCED: Call Information: Date and Time of Contact: 03/12/2023 10:32 AM Method of Contact: By Phone Contact Type: Prescriptions Contactor: [facility] Contactee: Patient Contact Outcome: Left message Shipping/Pickup: Medication Name: Mycophenolate sodium (MYFORTIC) 180 MG Tab tacrolimus 0.5 mg Contact Info: Specialty (Yanci) [phone] Jakob [phone] [place] [phone] David [phone] Bedside Delivery ([facility]) [phone] documented in this [facility]16[facility] History of Present illness Narrative -Referring Provider for today's consult: Daisha Max DO -Primary Care Provider: Zuly Bruno History of Present Illness George Styles is a 52 y.o. male who presents to the [facility] today for follow-up [...] Enzo Heart DO; Location: [facility] INTERVENTIONAL RADIOLOGY (VIR) LIVER TRANSPLANT, ORTHOTOPIC N/A 04/12/2020 Laterality: N/A; Surgeon: LU Palma; Location: [facility] SAME DAY SURGERY MAIN OR KIDNEY TRANSPLANT W/O HOONAH NEPHRECTOMY N/A 04/12/2020 Laterality: N/A; Surgeon: LU Palma; Location: [facility] SAME DAY SURGERY MAIN OR OTHER SURGICAL [...] 0.3 12/29/2022 Explant Pathology Pathologic Diagnosis A. [place] liver, orthotopic liver transplant resection (1458 gram): [...] A/P with IV contrast (06/27/2022): 1. Both [place]ul kidneys are atrophic with improvement in right-sided [...] frequent nighttime urination, etc). Daisha Max DO [facility] G[facility], Hepatology and Nutrition [facility] Pager: [phone] Images from the original note were not included. 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 Wood Casket Assembler: Anayeli Burt Date of Liver Transplant: 04/13/2020 (Kidney), 04/13/2020 (Liver) 2 years, 8 months post Liver/Kidney Transplant Primary Disease: Hypertensive Nephrosclerosis Transplant Workday Consultant: Steve Munoz Primary Care physician: Zuly Bruno [...] levels: No results found for: CYCLOSPORIN, CYCLOSPORIN2, [id number], CYCLORAND No components found for: CYCLOSPORINE, 2HR [...] hours. ADDITIONAL INFORMATION: None Specified [id number] [place] [address] - [address] [facility] [address] [facility] [id number] [facility] [address] [facility] [place] [address] [facility][id number] - [place] [id number] - [address] [facility] [address] [place] [address] [facility] Jakob [address], [place] [address] [place] [address] ROS and SCREEN: Chest Pain: negative Cough: [...] ADDRESS WITH PHYSICIAN: documented in this encounter [facility] 01-16-2023 Instructions José Miguel Garnica RN - 01/16/2023 9:40 AM EST - Labs Every 2 months - Discuss night time urination with your PCP - Schedule Colonoscopy through PCP - Follow up in 1 year documented in this encounter [facility] 09-10-2022 History of Present illness [...] and no hydronephrosis. Some reflux up the [place]ul right ureter but good drainage of both transplant and [place]ul ureter to the bladder. Nephrostomy tube was [...] transplant, orthotopic (N/A, 04/12/2020); kidney transplant w/o [place]ul nephrectomy (N/A, 04/12/2020); and placement nephrostomy catheter [...] Negative for , diarrhea, constipation Genitourinary: See ELIM IRA Neurological: Negative for headaches. Lymph/Heme: Negative for [...] x 4, Normal strength. No edema. Skin: [place], warm, and dry. There are no rashes [...] and no hydronephrosis. Some reflux up the [place] right ureter but good drainage of both transplant and [place] ureter to the bladder. Nephrostomy tube was [...] MD 09/10/22 documented in this encounter [facility] 07-07-2022 History of Present illness [...] off the table and escorted to receptionist nurse where they made a follow up. Associated [...] to have transplant ureter with anastomosis to saint [place]ul right ureter. Nephrostogram without filling defects and no hydronephrosis. Some reflux up the [place] right ureter but good drainage of both transplant and [place] ureter to the bladder. Nephrostomy tube was removed without issue. Patient does have some sensation of incomplete bladder emptying and occasional sensation in his right flank. PVR today was 33cc. Will re-evaluate urinary symptoms at next appointment. --continue Flomax --RTC in one month flow flow/PVR/IPSS Patient to call with any additional questions or concerns. Ryan Yepez MD 07/07/22 documented in this encounter [facility] 06-27-2022 History of Present illness [...] transplant, orthotopic (N/A, 04/12/2020); kidney transplant w/o [place]ul nephrectomy (N/A, 04/12/2020); and placement nephrostomy catheter [...] Negative for , diarrhea, constipation Genitourinary: See ELIM IRA Neurological: Negative for headaches. Lymph/Heme: Negative for [...] x 4, Normal strength. No edema. Skin: [place], warm, and dry. There are no rashes [...] yo male with a DD[facility] to the [facility] in 2019. Nephrostomy tube placed [...] bag if needed. documented in this encounter [facility] 06-27-2022 History and physical note Patient was evaluated in clinic as a nurse visit. Please refer to Rena Brewster's note. [facility] Work Phone: 06-27-2022 History and physical note Patient was evaluated in clinic as a nurse visit. Please refer to Rena Brewster's note. documented in this encounter [facility] 06-27-2022 History of Present illness Narrative TEACHING REGARDING TX NEPH COMPLETED-NEPH TUBE SITE DRY AND INTACT-CLEAR YELLOW URINE IN THE BAG-INSTRUCTED ABOUT FLUSHING, BAG CHANGING ETC. NUMEROUS QUESTIONS ASKED AND ANSWERED-VERBALIZED UNDERSTANDING documented in this encounter [facility] 06-18-2022 Note EXAMINATION: CT ABD/ [...] mass or enlargement. KIDNEYS: Marked atrophy of [place]ul kidneys. Transplant right pelvic kidney with percutaneous [...] authenticated by: MÓNICA JIMENEZ Date: 2022-06-18 13:53 [facility] 06-12-2022 Instructions Anayeli Christianson RN - 06/12/2022 3:21 PM EDT Do not take apart/disrupt nephrostomy tube system. Call Interventional Radiology and/or on-call transplant nurse [phone] for instruction if need to flush (clot or decreased flow). Take cipro 500mg, one tablet, twice per day for 14 days documented in this encounter [facility] 06-12-2022 History of Present illness Narrative Images from the original note were not included. 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 Wood Casket Assembler: Anayeli Burt Date of Liver Transplant: 04/13/2020 (Kidney), 04/13/2020 (Liver) 2 year, 1 months post Liver/Kidney Transplant Primary Disease: Hypertensive Nephrosclerosis Transplant Workday Consultant: Steve Munoz Primary Care physician: Zuly Bruno [...] Non-obstructing kidney stone in renal graft at [facility]. Percutaneous Neph Tube placed Images from the original note were not included. Nursing Assessment In Clinic (see Clinic Prep Sheet for additional information) Patient is accompanied to clinic today by: self Did patient require a wheelchair or medical transport for appointment: no Did manager front confirm current address and insurance information is [...] PREFERRED LAB AND PHARMACY: None Specified [facility] [place] [id number] - [address] [address] [facility] [address] [facility] [address] [id number] [place] [address] [address] [facility] [address] [facility] [address] [facility] Jakob [address], [place] [address] [facility] [address] ROS and SCREEN: Chest Pain: negative Cough: negative SOB: negative Abd Pain: negative Nausea: positive Vomiting: negative Diarrhea: negative Constipation: negative Dysuria: positive Edema: negative Tremors: negative Headaches: negative Wound issues: negative Pt has neph tube w clear yellow urine. States he had a small clot that he dislodged QUESTIONS OR CONCERNS TO ADDRESS WITH PHYSICIAN: I saw George Styles at the [facility] on 06/12/2022. Patient is a 52 y.o. 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 INTERVENTIONAL RADIOLOGY (VIR) LIVER TRANSPLANT, ORTHOTOPIC N/A 04/12/2020 Laterality: N/A; Surgeon: LU Palma; Location: [facility] SAME DAY SURGERY MAIN OR KIDNEY TRANSPLANT W/O HOONAH NEPHRECTOMY N/A 04/12/2020 Laterality: N/A; Surgeon: LU Palma; Location: [facility] SAME DAY SURGERY MAIN OR OTHER SURGICAL [...] you have any questions. Steve Munoz MD chief engineer research Division of Nephrology [facility] documented in this encounter [facility] 06-04-2022 Instructions TATI GROVE - 06/04/2022 11:04 AM EDT Thank you for joining us for your neph tube follow up. We recommend routine exchange every 8-10 weeks. Please reach out at [phone] when it is time to set your next routine exchange. Thank you IR clinic documented in this encounter [facility] 06-04-2022 History of Present illness [...] exchange. Verbalized understanding. documented in this encounter [facility] 05-20-2022 Note Formatting of this [...] time of his discharge. Leon Cook RN [facility] 05-20-2022 Miscellaneous Notes Patient discharged. [...] provide teaching before his discharge Leon RN #[id number] Leon Cook RN Afternoon assessment completed at [...] Rounds/Family Conf Outcome: Ongoing Discussed with [facility] re: possible urine culture performed at [...] with questions. Evan Byrd MD Urology, PGY-2 #[id number] I certify that this patient requires inpatient [...] Kallie Lorenzana RN documented in this encounter [facility] 05-20-2022 Note Formatting of this [...] discharge/transition of care. Outcome: Adequate for Discharge [facility] 05-20-2022 Note Formatting of this n ote might be different from the original. Anne Dillard MD R10 Rm 1006 Jensen George Please let's have a clear order on how the nephrostomy site dressing need to be changed when the patient goes home so we provide teaching before his discharge Leon RN #[id number] Leon Cook RN [facility] 05-20-2022 History of Present illness Narrative Images from the original note were not included. [facility] ([facility]) Note: [facility] received the following discharge prescription(s): Medication reconciliation was completed with comparison to discharge reconciliation report. The prescription(s) will be delivered to the patient's bedside on 05/20/22. Total cost is $0. Yanira Her RPh,PharmD Specialty ([place]) [phone] [facility] [phone] [facility] [phone] David [phone] [place] [phone] Bedside Delivery ([facility]) [phone] Attending I saw George Styles at the [facility] on 05/19/2022. I saw and independently [...] mg 10 mg Oral Q4H PRN Nishant Gamze MD 10 mg at 05/18/22 0806 Or [...] Daily Progress Note Patient: George Styles, 1970, [id number] Physician: Liam Julian MD, PGY-3, Pager #[phone], [email or web address] Subjective/Interval History: No acute events overnight. Passed [...] agree with neph tube placement - Discontinued maitas History of liver and kidney transplant: Patient [...] MD (Peggy) Division of Hospital Medicine Pager [phone] Attending I saw George Styles at the [facility] on 05/18/2022. I saw and independently [...] Evan Bennett MD 0.4 mg at 05/17/22 0906 Lab Results Component Value Date SODIUM 139 [...] Daily Progress Note Patient: George Styles, 1970, [id number] Physician: Nishant Gamez MD, PGY2, Pager #[phone], [email or web address] Subjective/Interval History: Nephrostomy tube placed yesterday with a lot of urine output and significant improvement in creatinine. 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 Daya (Nunu) Jeff Saldana MD Division of Hospital Medicine Pager [phone] Internal Medicine Daily Progress Note Patient: George Styles, 1970, [id number] Physician: Nishant Gamez MD, PGY2, Pager #[phone], [email or web address] Subjective/Interval History: Worsening creatinine this morning with [...] MD (Peggy) Division of Hospital Medicine Pager [phone] Attending I saw George Styles at the [facility] on 05/17/2022. I saw and independently [...] of chart and discussion with treatment team, Business Process Consultant has not identified needs at this time. [...] follow. Introduced self and role of the marketing intern to patient. Provided emotional and spiritual support and the patient responded by sharing their experience and discussed the following: - Spirituality/Lutheran Affiliation: As a kid attended Sikh jainism but not a strong identity now - Family support - pt's brothers live close by Director Content Marketing provided: - Supportive presence - Active listening - Validation of feelings/emotions Patient encouraged to request a marketing intern as needed. Chaplains are available in-house 24 hours a day and 7 days a week. For urgent matters in [facility], please page [phone]. If the request is not urgent, please enter a consult. Consults are responded to within 24 hours. Angie Singh Mdiv, [facility] [place] [address] Director Content Marketing [facility] Director Content Marketing Kirk [phone] [email or web address] 22/06 [facility] Pager [phone] 22/06 Pager ,[facility], and [place] 1500 22/06 David Pager [phone] 05/16/22 1126 Clinical Encounter Type Visited With Patient Visit Type Introduction Pastoral Time Spent 15 min Referral Other (See Comment) (Rounding) Spiritual Assessment Spiritual Observation Spirituality helpful;Identifies as (see comment) ([place]) Emotional Observation Coping well Hope Observation Hopeful and accepting Support Observation By Family Interventions Provided Active listening;Supportive presence Facilitated Verbalization of feelings;Sharing of life story;Identifying support system Explored Expectations Wrapper Layer And Examiner Soft Work Education Wrapper Layer And Examiner Soft Work Service Available Yes Educated Patient Outcomes Patient Outcomes Articulated purpose/meaning Plan of Care Continue Visiting PRN Internal Medicine Daily Progress Note Patient: George Styles, 1970, [id number] Physician: Nishant Gamez MD, PGY2, Pager #[phone], [email or web address] Subjective/Interval History: Overall feeling okay this morning. [...] the following additions/changes. 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 [...] Supervision Transfer Assessment: Sit to Stand Transfer [place] Level: Sit->Stand: independent Skilled Intervention/Details: Sit->Stand: x1 from EOB Stand to Sit Transfer [place] Level: Stand->Sit: supervision Assistive Device: Stand->Sit: armed chair Skilled Rationale: Controlled descent for sitting, Verbal cues Gait/Functional Mobility: Gait Assessment [place] Level: Gait: supervision Assistive Device: Gait: gait belt Gait Distance (feet): 200 Gait Deviations Identified: decreased grace, decreased step length, decreased stride length Gait Skilled Rationale: verbal, upright posture Skilled Intervention/Details - Gait: Pt with steady gait without LOB or complaints of SOB. Stairs: Stairs Assessment [place] Level: Stair Negotiation: stand-by assist Assistive Device: Stair Negotiation: gait belt, left rail (ascending) Number of stairs: 9 Stairs Skilled Rationale: reciprocal pattern Outcome Score(s): CURRENT [facility] Basic Mobility Inpatient Short Form Turning over in bed: 4 - No Assistance Sitting/standing from chair: 4 - No Assistance Moving from lying on back to sittin - No Assistance Moving to and from bed to chair: 4 - No Assistance Walk in hospital room: 3 - A Little Assistance Climbing 3-5 steps with a railin - A Little Assistance CURRENT [facility] Mobility Raw Score: 22 CURRENT [facility] Mobility Functional Limitation/Modifier: 20.91% Currently Impaired in [...] reported no concerns with discharging home with [place] support. 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 IADL History IADLs: independent Primary Language: [place] Home Management Skills: independent Meal Prep Responsibility: [...] Assessment: Transfer Assessment: Sit to Stand Transfer [place] Level: Sit->Stand: independent Skilled Rationale: Cues for increased safety Skilled Intervention/Details: Sit->Stand: x1 EOB Stand to Sit Transfer [place] Level: Stand->Sit: supervision Assistive Device: Stand->Sit: gait belt, armed chair Skilled Rationale: Verbal cues, Controlled descent for sitting, Cues for increased safety Skilled Intervention/Details: Stand->Sit: cues for hand placement and controlled descent Functional Mobility: Functional Mobility [place] Level: Functional Mobility/Gait: stand-by assist Assistive Device: Functional Mobility/Gait: gait belt Functional Mobility Distance: Distance needed for limited community mobility Functional Mobility Deficits: Activity tolerance, Balance, Decreased step length, Generalized weakness Functional Mobility Skilled Rationale: Verbal cues, Facilitate postural control Skilled Intervention/Details - Functional Mobility/Gait: cues for upright posture Outcome Score(s): CURRENT [facility] Daily Activity Inpatient Short Form Putting on/Taking Off Lower Body Clothin - A Little Assistance Bathin - A Little Assistance Toiletin - A Little Assistance Putting on/Taking Off Upper Body Clothin - No Assistance Groomin - No Assistance Eatin - No Assistance CURRENT [facility] Activity Raw Score: 21 CURRENT [facility] Activity Functional Limitation/Modifier: 32.79% Currently Impaired in [...] DAY SURGERY MAIN OR KIDNEY TRANSPLANT W/O HOONAH NEPHRECTOMY N/A 04/12/2020 Laterality: N/A; Surgeon: LU [...] by: Mel Norman OT, OTR/L License #: [id number] pager # [phone] 05/20/2022 Upon discontinuation of Acute Care Occupational Therapy Services or patient discharge from the hospital this note represents the current Occupational Therapy Discharge Summary. documented in this encounter [facility] 05-20-2022 Hospital course Narrative Discharge [...] during his recent hospital stay at [facility]. As you may know, George [...] Saldana MD Division of Hospital Medicine p: [phone] f: [phone] CONSULTS DURING ADMISSION: IP CONSULT TO SURGERY - UROLOGY IP CONSULT TO NEPHROLOGY - TRANSPLANT (MEDICINE) IP CONSULT TO INTERVENTIONAL RADIOLOGY IP CONSULT TO PHYSICAL THERAPY IP CONSULT TO OCCUPATIONAL THERAPY IP CONSULT TO PHARMACY BEDSIDE DISCHARGE MED DELIVERY IMAGING / PROCEDURES / RESULTS: Should you require further information or copies of results or reports please contact Medical Information Management @ [phone] LABS AT TIME OF DISCHARGE: Lab Results [...] AT DISCHARGE: Zuly Bruno [address] [facility] / [place] [address] MEDICATIONS: Discharge Orders CT ABDOMEN/PELVIS WITHOUT CONTRAST [...] CAPS Generic drug: docusate Follow-up: Zuly Bruno, CRAFT WORKER [address] [place] [phone] Schedule an appointment as soon as possible for a visit Follow-up appointment with your, primary care physician within 7-10 days, after discharge. [address] [facility] [phone] Follow up The department of urology will call you with a follow up appointment. LU Ovalle [address] 11[address] Floor [facility] [phone] Follow up Please make a follow up appointment with Dr. Munoz's office. Upcoming Appointments (up to five)-Some appointments for Medical Center outpatient clinics or diagnostic testing locations are not displayed below Provider Department Dept Phone 06/04/2022 10:40 AM IR CLINIC [facility] Interventional Radiology Clinic [phone] 06/27/2022 1:30 PM [facility] Department of Radiology Arrive at: Arrive to First Floor Registration Desk [phone] 06/27/2022 2:40 PM Ryan Yepez [facility] [place] Arrive at: Arrive to 2nd Floor, Registration [address] 10/31/2022 1:00 PM Steve Munoz [facility] Transplant [facility] [phone] 01/16/2023 9:40 AM TRANSPLANT HEPATOLOGY 3, [facility] Transplant [place] [facility] [phone] Associated attestation - Daya Saldana MD - [...] MD (Peggy) Division of Hospital Medicine Pager [phone] documented in this encounter [facility] 05-20-2022 Hospital Discharge instructions Giulia [...] be changed by Interventional Radiology. Please call [phone] to schedule this appointment and with any questions or concerns you may have regarding the nephrostomy tube. If you have questions or concerns, please call Interventional Radiology at SOMEONE FROM INTERVENTIONAL RADIOLOGY WILL CALL YOU FOR A FOLLOW UP IN THE IR CLINIC Giulia Cavazos RN Nurse Coordinator Interventional Radiology Interventional Radiology Outpatient scheduling documented in this encounter [facility] 05-19-2022 Note Formatting of this [...] Goal: Interdisciplinary Rounds/Family Conf Outcome: Ongoing [facility] 05-19-2022 Note Formatting of this n ote might be different from the original. Discussed with [facility] re: possible urine culture performed at their facility. However, based on urinalysis completed at that time, which was only notable for hematuria, culture was not performed and sample no longer feasible for culture. Liam Julian MD Internal Medicine/Pediatrics, PGY-3 [facility] 05-18-2022 Note Formatting of this n ote might be different from the original. 2002: IHIS message sent to Dr Justyn Wen, regarding patient passing a small kidney stone, about the size of pea. notified. Stone left in strainer in pt bathroom. 0500: IHIS message sent to Dr Justyn Wen, regarding pt BP 174/77. [facility] 05-18-2022 Note Formatting of this [...] outcomes by discharge/transition of care. Outcome: Ongoing [facility] 05-18-2022 Note Formatting of this [...] becomes hyponatremic, NS should instead be used. [facility] Work Phone: 05-18-2022 Note Formatting of this n ote might be different from the original. IHIS chat sent to Dr Tray Quintana, regarding pt BP 190/86. Pt complaining of pain at site of neph tube. PRN pain medication given per order parameters. Pt denies any other symptoms at this time. MD notified and aware. [facility] 05-17-2022 Note Formatting of this n ote might be different from the original. At 0900, I rounded with Dr. Gamez and Dr. Saldana. At that time I checked Mr. Styles's vital signs. His pulse oximeter was low and he was tachypneic. Verbal order at bedside to put nasal cannula on starting at 2liters oxygen and to provide incentive spirometer. [facility] 05-17-2022 Note Formatting of this n ote might be different from the original. Interventional Radiology procedure completed with IR Attending Dr. Heart / Dr. Le of percutaneous right nephrostomy tube placement transplant kidney 10.2 Fr Griffin acosta Pt tolerated procedure with moderate sedation local numbing agent . Transported to inpatient after phase I recovery. Post procedure orders in place. [facility] 05-16-2022 Note Formatting of this n ote might be different from the original. At 1530, I text chavad Kaitlynn Gomez MD that patient has only had 25ml urine output in matias this afternoon. [facility] 05-16-2022 Note Formatting of this [...] with questions. Evan Byrd MD Urology, PGY-2 #[id number] [facility] Work Phone: 05-16-2022 Note Formatting of this n ote might be different from the original. I certify that this patient requires inpatient services at this time. I anticipate the expected length of stay will include at least two midnights. Inpatient services are due to the following medical concerns Obstructive kidney stone. Plans for post hospitalization care will be discharge to home. [facility] 05-16-2022 Consult note Associated Order (s): IP CONSULT TO NEPHROLOGY - TRANSPLANT (MEDICINE) I saw George Styles at the [facility] on 05/16/2022. Reason for Consultation: kidney [...] he was given flomax and sent home. Jefferson better but noticed more pain and decreased [...] best assessment and recommendations. Maxi Pringle MD [facility] Work Phone: 05-16-2022 Consult note Associated Order (s): IP CONSULT TO NEPHROLOGY - TRANSPLANT (MEDICINE) I saw George Styles at the [facility] on 05/16/2022. Reason for Consultation: kidney [...] he was given flomax and sent home. Jefferson better but noticed more pain and decreased [...] states he went to his local ED [place] and he was put on Flomax and he did improve. Pt states last night he was unable to void with severe right sided abd pain. Pt states nausea and no vomiting or fevers. Pt states he went back to [place] ED at 0100 and they placed a [...] orthotopic (N/A, 04/12/2020); and kidney transplant w/o [place]ul nephrectomy (N/A, 04/12/2020). 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 The saint paul kidneys are progressively atrophic bilaterally compared to [...] of 06/14/2020 are no longer present. The saint [place]ul distal right ureter is decompressed beyond this [...] with surgical history for renal graft and saint paul right urinary drainage, as a discrete ureteroneocystostomy is not identified, and the graft may be draining via a ureteroureterostomy. Urology consultation recommended. 3. The saint paul kidneys are bilaterally atrophic, with right renal sinus calcifications consistent with nonobstructing right saint paul renal calculi up to 6 mm. Normal [...] PGY-3, Department of Urologic Surgery Pager #: [phone] Associated attestation - Ryan Yepez MD - [...] continue flomax documented in this encounter [facility] 05-16-2022 Note Formatting of this [...] Trust Relationship/Rapport: care explained choices provided [facility] 05-16-2022 Note Formatting of this n ote might be different from the original. On admission to R10, a dual RN initial assessment of skin condition was performed by Kallie Lorenzana RN and Sheri Arguelles RN. Skin Assessment: WDL Jose Score: 20 LDA Added:N Kallie Lorenzana RN [facility] 05-15-2022 Emergency department Note Report given to Kallie RN at [facility] 05-15-2022 Emergency department Note Report given to Kallie RN at [facility] Bladder scan with Dr Villatoro at bedside, [...] and was sent home with [facility]. He went back to that ED and [...] 04/12/2020 Laterality: N/A; Surgeon: LU Palma; [facility] SAME DAY SURGERY MAIN OR KIDNEY TRANSPLANT W/O HOONAH NEPHRECTOMY N/A 04/12/2020 Laterality: N/A; Surgeon: LU Palma; Location: [facility] SAME DAY SURGERY MAIN OR OTHER SURGICAL [...] MD Resident 05/15/222030 Pt arrives from [facility] with kidney stones. Pt states he had right lower abd pain and right flank pain with blood in his urine since Thursday. Pt states he went to his local ED [place] and he was put on Flomax and he did improve. Pt states last night he was unable to void with severe right sided abd pain. Pt states nausea and no vomiting or fevers. Pt states he went back to [place] ED at 0100 and they placed a matias and CT scan completed and multiple kidney stones noted. [facility] liver and kidney transplant in 03/2020. 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 Strength grossly [...] dilation of the calyces may represent narrowing/partial [id number] ofthe ureter and mild hydronephrosis or sequela [...] Medicine [id number] documented in this encounter [facility] 05-15-2022 Emergency department Note Bladder scan with Dr Villatoro at bedside, 14ml noted [facility] 05-15-2022 Consult note Associated Order [...] states he went to his local ED [place] and he was put on Flomax and he did improve. Pt states last night he was unable to void with severe right sided abd pain. Pt states nausea and no vomiting or fevers. Pt states he went back to [place] ED at 0100 and they placed a [...] orthotopic (N/A, 04/12/2020); and kidney transplant w/o saint paul nephrectomy (N/A, 04/12/2020). 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 The saint paul kidneys are progressively atrophic bilaterally compared to [...] of 06/14/2020 are no longer present. The saint paul distal right ureter is decompressed beyond this [...] with surgical history for renal graft and saint paul right urinary drainage, as a discrete ureteroneocystostomy is not identified, and the graft may be draining via a ureteroureterostomy. Urology consultation recommended. 3. The saint paul kidneys are bilaterally atrophic, with right renal sinus calcifications consistent with nonobstructing right saint paul renal calculi up to 6 mm. Normal [...] PGY-3, Department of Urologic Surgery Pager #: [phone] Associated attestation - Ryan Yepez MD - [...] future before surgical intervention --may continue flomax [facility] Work Phone: 05-15-2022 Emergency department Note Advised Dr Schneider concerning no urine output via matias catheter. [facility] 05-15-2022 Physician Emergency department Note [...] plan of care. Gian Villatoro MD 05/15/222003 [facility] Work Phone: 05-15-[address] Schneider made aware of only 30 ml urine via matias since arrival to room. [facility] 05-15-2022 Physician Emergency department Note [...] DAY SURGERY MAIN OR KIDNEY TRANSPLANT W/O HOONAH NEPHRECTOMY N/A 04/12/2020 Laterality: N/A; Surgeon: LU [...] incorrections. Matt Schneider MD Resident 05/15/222030 [facility] Work Phone: 05-15-2022 Emergency department Note Pt arrives from [facility] with kidney stones. Pt states he had right lower abd pain and right flank pain with blood in his urine since Thursday. Pt states he went to his local ED [place] and he was put on Flomax and he did improve. Pt states last night he was unable to void with severe right sided abd pain. Pt states nausea and no vomiting or fevers. Pt states he went back to [place] ED at 0100 and they placed a matias and CT scan completed and multiple kidney stones noted. [facility] as he had liver and kidney transplant in 03/2020. [facility] 03-14-2022 History of Present illness [...] Required: No Mailing/Pickup Date: 03/17/2022 Shipping Address: [address] [place] [address] 179 Contact Info: Specialty ([place]) [phone] [facility] [phone] [facility] [phone] David [phone] Bedside Delivery ([facility]) [phone] documented in this encounter [facility] 06-14-2021 History of Present illness [...] Goal Progress: Satisfactory Contact Info: Specialty ([place]) [phone] Jakob [phone] [facility] [phone] David [phone] Bedside Delivery ([facility]) [phone] [facility]: Call Information: Date [...] Home Signature Required: Yes Shipping Address: [address] [place] [id number] Contact Info: Specialty ([place]) [phone] Jakob [phone] [facility] [phone] David [phone] Bedside Delivery ([facility]) [phone] documented in this encounter [facility] Evaluation note Diagnosis FAYE (acute kidney injury)- Primary Acute kidney failure, unspecified Hydronephrosis due to obstruction of ureteral orifice Hydronephrosis due to obstruction of ureteral orifice FAYE (acute kidney injury) Acute kidney failure, unspecified [facility] Diagnosis Follow-up exam- Primary Unspecified follow-up examination documented [facility] Diagnosis Immunosuppressed status- Primary Unspecified disorder of immune mechanism Kidney replaced by transplant Liver replaced by transplant Abnormal blood chemistry Other abnormal blood chemistry High risk medication use Encounter for long-term (current) use of other medications Aftercare following organ transplant [facility] Attention to nephrostomy- Primary [facility] Diagnosis Other hydronephrosis- Primary [facility] Diagnosis FAYE (acute kidney injury) Acute kidney failure, unspecified [facility] Diagnosis Other hydronephrosis- Primary -donor kidney transplant recipient Kidney replaced by transplant [facility] Diagnosis Other hydronephrosis [facility] Diagnosis 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) Encounter for screening for malignant neoplasm of prostate Special screening for malignant neoplasm of prostate [facility] Diagnosis Abnormal blood chemistry- Primary Other abnormal blood chemistry Liver transplant recipient Kidney replaced by transplant Immunosuppressed status Unspecified disorder of immune mechanism Aftercare following organ transplant [facility] Diagnosis Kidney replaced by transplant- Primary [facility] Diagnosis Immunosuppressed status- Primary Unspecified disorder of immune mechanism Kidney replaced by transplant Aftercare following organ transplant High risk medication use Encounter for long-term (current) use of other medications Other general symptoms and signs Abnormal blood chemistry Other abnormal blood chemistry Hypertension secondary to other renal disorders [facility] Diagnosis Histoplasmosis- Primary Histoplasmosis, unspecified [...] Fever, unspecified [facility] Diagnosis Bilateral lower extremity [...] pre-operative examination [facility] Heart failure, diastolic, acute- Primary Acute diastolic heart failure [facility] Consultation (Routine) - New Request Specialty Diagnoses / Procedures Referred By Deni edwards Referred To Contact Interventional Radiology Diagnoses Hydronephrosis due to obstruction of ureteral orifice Daya Saldana MD [address] [place] [address] Referral ID Status Reason Start Date Expiration Date V isits Requested Visits Authorized [id number] New Request 05/18/2022 06/12/2023 1 1 * Radiology (Emergency) - New Request Specialty Diagnoses / Procedures Referred By Deni edwards Referred To Contact Procedures US RENAL TRANSPLANT SCAN Daya Saldana MD [address] [place] [address] Referral ID Status Reason Start Date Expiration Date V isits Requested Visits Authorized [id number] New Request 05/16/2022 06/10/2023 1 1 * Consultation (Routine) - New Request Specialty Diagnoses / Procedures Referred By Contac t Referred To Contact Urology Diagnoses FAYE (acute kidney injury) Ryan Yepez MD [address] [place] [address] [address] [place] [address] Referral ID Status Reason Start Date Expiration Date V isits Requested Visits Authorized [id number] New Request 05/16/2022 06/10/2023 1 1 * MRI/CAT Scan (Routine) - New Request Specialty Diagnoses / Procedures Referred By Contac t Referred To Contact Diagnoses FAYE (acute kidney injury) Procedures CT ABDOMEN/PELVIS WITHOUT CONTRAST CHG CT SCAN,ABDOMENT AND PELVIS,W/O CONTRAST Ryan Yepez MD [address] [place] [address] [address] [place] [address] Referral ID Status Reason Start Date Expiration Date V isits Requested Visits Authorized [id number] New Request 05/16/2022 06/10/2023 1 1 * (Routine) - Pending Review Specialty Diagnoses / Procedures Referred By Contac t Referred To Contact Procedures PLATELET MONITORING PER PROTOCOL Daya Saldana MD [address] [place] [address] Referral ID Status Reason Start Date Expiration Date V isits Requested Visits Authorized [id number] Pending Review 05/15/2022 06/09/2023 1 1 * (Routine) - Pending Review Specialty Diagnoses / Procedures Referred By Contac t Referred To Contact Procedures DVT/VTE RISK ASSESSMENT Daya Saldana MD [address] [place] [address] Referral ID Status Reason Start Date Expiration Date V isits Requested Visits Authorized [id number] Pending Review 05/15/2022 06/09/2023 1 1 * (Routine) Specialty Diagnoses / Procedures Referred By Contac t Referred To Contact Evan Bennett MD [address] [place] [address] Referral ID Status Reason Start Date Expiration Date Visits Re quested Visits Authorized * (Routine) Specialty Diagnoses / Procedures Referred By Contac t Referred To Contact Evan Bennett MD [address] [place] [address] Referral ID Status Reason Start Date Expiration Date Visits Re quested Visits Authorized [facility] for referral (narrative)* Consultation (Routine) - New Request Specialty Diagnoses / Procedures Referred By Contac t Referred To Contact Sleep Medicine Diagnoses Hypoxia Kevin Sage MD [address] [place] [address] Referral ID Status Reason Start Date Expiration Date V isits Requested Visits Authorized [id number] New Request 09/10/2023 10/04/2024 1 1 * MRI/CAT Scan (Routine) - New Request Specialty Diagnoses / Procedures Referred By Contac t Referred To Contact Diagnoses Histoplasmosis Procedures CT CHEST WITHOUT CONTRAST CHG DIAGNOSTIC COMPUTED TOMOGRAPHY THORAX W/O Kevin Zarate MD [address] [place] [address] Referral ID Status Reason Start Date Expiration Date V isits Requested Visits Authorized [id number] New Request 09/10/2023 10/04/2024 1 1 * Radiology (Routine) - New Request Specialty Diagnoses / Procedures Referred By Contac t Referred To Contact Procedures US RENAL TRANSPLANT SCAN Steve Munoz MBBS [address] [place] [address] Referral ID Status Reason Start Date Expiration Date V isits Requested Visits Authorized [id number] New Request 08/29/2023 09/22/2024 1 1 * (Routine) - New Request Specialty Diagnoses / Procedures Referred By Contac t Referred To Contact Procedures PLATELET MONITORING PER PROTOCOL Steve Munoz MBBS [address] [place] [address] Referral ID Status Reason Start Date Expiration Date V isits Requested Visits Authorized [id number] New Request 08/28/2023 09/21/2024 1 1 * (Routine) - New Request Specialty Diagnoses / Procedures Referred By Contac t Referred To Contact Procedures DVT/VTE RISK ASSESSMENT Steve Munoz MBBS [address] [place] [address] Referral ID Status Reason Start Date Expiration Date V isits Requested Visits Authorized [id number] New Request 08/28/2023 09/21/2024 1 1 [facility] Instructions * Patient Instructions - Christin Elizabeth APRN-ROB - 10/19/2018 9:21 AM EST You should take an extra dose of the lactulose as needed so that you are having 3-4 bowel movementsdaily. You should start the chemical dependency counseling as soon as possible. If you have questions, call the transplant social services analyst Fidelina Pierson. in this encounter* Patient Instructions - Sophie Cary RN - 10/12/2018 11:09 AM EST You have been seen in the pre-transplant evaluation clinic by Dr. Restrepo and Sophie Cary. Spohie Cary is your pre-youth coordinator she can be reached at [phone] at any time for questions during the pre-transplant process. Your evaluation is complete pendin. Abdominal ultrasound. 2. 6 minute walk test. 3. Cardiology evaluation. Additionally, your back tender insulation board will recommend testing to screen for coronary artery disease. This will be scheduled for you after your cardiology visit. 4. Your coordinator will be requesting record from your last dental visit, colonoscopy and EGD. 5. Please work to complete social work recommendations. Your social services analyst will be contacting you to follow up on your progress. 6. You have also been referred for a kidney transplant. An appointment will be scheduled for you sari evaluated in the kidney transplant clinic after you have satisfied requirements dictated by [employer] company. Once your testing is complete, we [...] ___ Other Name MRN * Christin Elizabeth, BELL STAFF-CRAFT WORKER - 10/19/2018 9:00 AM EST Formatting of this note may be different from the original. History of Present Illness: Chief Complaint Patient presents with Follow-up Cirrhosis George Styles is a 48 y.o. male who presents to the [facility] today regarding his diagnosis/chief complaint(s) of Cirrhosis secondary to ETOH, with ESRD follows with Dr. Orr. Currently undergoing evaluation for liver/kidney transplant. Has been seen in transplant clinic for eval. Still undergoing pre testing. Diagnosed in April 2018. Last drink was immediately prior to hospital admission in [place] for ACLF. Hospital course notable for ARF [...] (human immunodeficiency virus infection); Hyperlipidemia; Hyperthyroidism; Hypothyroidism; HI (myocardial infarction); Migraine; DARLENE (obstructive sleep apnea); [...] kidney transplant evaluation. Pt was AOx3. Transplant Supervisor Machine Workers role/function was explained and reviewed. The patient was informed that the results of this assessment will be shared with the referring provider and the transplant team. The patient verbalized understanding of this information. The [facility] psychosocial assessment consent form has been explained to patient and has been signed. Pt is completing this evaluation with brother (David) in the Outpatient setting. ALIE educated pt on the benefits of completing/filing advanced directives and resources were offered. Pt identifies with NONDENOMINATIONAL jewish. Pt confirms being a [place] Citizen. Pt.'s primary language is [place]. Pt confirms the ability to read,write, and understand [place]. Pt denies potential donors. Donor cards and [...] has valid license, does not regularly drive (CRAFT WORKER recommends that he not to drive). He [...] related disease etoh cirrohosis April dx in [facility] for thirty days. Pt [...] as well as referred him to pre youth coordinator. Pt and support demonstrated moderate understanding [...] Patient's brother David is a self employed photovoltaic subcontractor. Additional support includes his other brother Tyshawn and his Mary live fifteen minutes away. Of note Mary is a therapeutic radiologist for a [employer] is available to assist tools and parts attendant. He confirms being comfortable asking for help. [...] in 2010, he was employed by the [employer]. He has access to SSDI payment (SSDI starts in November) in regards to financial means pre/ post-transplant. Pt confirms (meeting bills currently, ) being able to meet daily needs. Patient's brother asking for additional information on community resources, food stamps and [place]. Refer him to pt.'s dialysis center and the [facility]. Hereports access to Medicaid. Pt. denies [...] court ordered treatment after a DUI charge [facility] in [place], court ordered treatment in 2001 and in [...] by patient from his primary medical provider- CRAFT WORKER patient was noted as attending an [...] new visit Date of service: 10/12/2018 -Referring circular stuffer for today's consult: -Primary Care Provider: Zuly Bruno CC: Chief Complaint Patient presents with Liver Recipient Evaluation History of Present Illness George Styles is a 48 y.o. male who presents to the [facility] liver transplant surgery clinic today for [...] EST Timed up and go 9.9 seconds Testing Coordinator Left 52.8 pounds Right 44.9 pounds Waist circ 38.5 inches * Sophie Cary, SAMI - 10/12/2018 10:00 AM EST Formatting of this note may be different from the original. Patient George Styles ([id number]), accompanied by his brother, was seen on [...] any further questions. Sophie GUERINN, RN Liver Wood Casket Assembler Etiology: ETOH HCC: No ETOH: Yes Last [...] Yovani Orr MD [address] [address] Status Reason Specialty Diagnoses / Procedures Referred By Contact Referred To Contact New Request Diagnoses Cirrhosis of liver with ascites, unspecified hepatic cirrhosis type Procedures US ABDOMEN RUQ/LIVER/GB Yovani Orr MD [address] [address] Specialty Diagnoses / Procedures Referred By Contac t Referred To Contact Diagnoses FAYE (acute kidney injury) Procedures CT ABDOMEN/PELVIS WITHOUT CONTRAST CHG CT SCAN,ABDOMENT AND PELVIS,W/O CONTRAST Central [place] [address] [place] [address] Referral ID Status Reason Start Date Expiration Date V isits Requested Visits Authorized [id number] Pending Review 05/16/2022 06/10/2023 1 1 Specialty Diagnoses / Procedures Referred By Contac t Referred To Contact Diagnoses Other hydronephrosis Procedures FLUORO IMAGING FOR UROLOGY Ryan Yepez MD [address] [facility] [address] [place] [address] Referral ID Status Reason Start Date Expiration Date V isits Requested Visits Authorized [id number] New Request 07/07/2022 08/01/2023 1 1 Specialty Diagnoses / Procedures Referred By Contac t Referred To Contact Procedures DIRECT ADMIT REQUEST Steve Munoz MBBS [address] [place] [address] Referral ID Status Reason Start Date Expiration Date V isits Requested Visits Authorized [id number] New Request 08/28/2023 09/21/2024 1 1 Specialty Diagnoses / Procedures Referred By Contac t Referred To Contact Radiology Diagnoses DARLENE (obstructive sleep apnea) Primary hypertension (CMS/HCC) Bilateral lower extremity edema Shortness of breath Procedures Echocardiogram 2D complete Zuly Bruno NP [address] [place] [address] Referral ID Status Reason Start Date Expiration Date Visits Requested Visits Authorized [id number] Incomplete Perform Procedure 01/06/2024 07/04/2024 1 1 Specialty Diagnoses / Procedures Referred By Contac t Referred To Contact Procedures US IMAGING REGIONAL ANESTHESIA Kehinde Gutierrez MD [address] [place] [address] Referral ID Status Reason Start Date Expiration Date V isits Requested Visits Authorized [id number] New Request 01/22/2024 02/15/2025 1 1 Specialty Diagnoses / Procedures Referred By Contac t Referred To Contact Cardiovascular Medicine Diagnoses Heart failure, diastolic, acute Kelvin Pacheco MD, JOSHBS [address] 1[address] [place] [address] Referral ID Status Reason Start Date Expiration Date V isits Requested Visits Authorized [id number] New Request 01/20/2024 02/13/2025 1 1 Specialty Diagnoses / Procedures Referred By Contac t Referred To Contact Procedures US ABDOMEN LIVER DOPPLER US ABDOMEN LIVER TRANSPLANT DOPPLER Timothy Joseph MD [address] [facility] [address] [place] [address] Referral ID Status Reason Start Date Expiration Date V isits Requested Visits Authorized [id number] New Request 01/16/2024 02/09/2025 1 1 Specialty Diagnoses / Procedures Referred By Contac t Referred To Contact Procedures DVT/VTE RISK ASSESSMENT Kelvin Pacheco MD, MBBS [address] [place] [address] Referral ID Status Reason Start Date Expiration Date V isits Requested Visits Authorized [id number] New Request 01/16/2024 02/09/2025 1 1 Specialty Diagnoses / Procedures Referred By Contac t Referred To Contact Procedures PLATELET MONITORING PER PROTOCOL Kelvin Pacheco MD, MBBS [address] [place] [address] Referral ID Status Reason Start Date Expiration Date V isits Requested Visits Authorized [id number] New Request 01/16/2024 02/09/2025 1 1 Referral ID Status Reason Start Date Expiration Date V isits Requested Visits Authorized [id number] New Request 01/16/2024 02/09/2025 1 1 Specialty Diagnoses / Procedures Referred By Contac t Referred To Contact Procedures ECG Kelvin Pacheco MD, MBBS [address] [place] [address] Referral ID Status Reason Start Date Expiration Date V isits Requested Visits Authorized [id number] New Request 01/16/2024 02/09/2025 1 1 Advance Directives No Advanced Directives Records FoundDocuments on File Type Date Recorded Patient Assisted Living Director Expl anation Advance Directives and Living Will Power of Education General Manager Latest Code Status on File Code Status [...] Yovani Orr MD [address] [address] Status Reason Specialty Diagnoses / Procedures Referre d By Contact Referred To Contact Denied Diagnoses Alcoholic cirrhosis, unspecified whether ascites present Pre-transplant evaluation for liver transplant Procedures MRI ABDOMEN WITH CONTRAST NE MRI, ABDOMEN W/CONTRAST Yovani Orr MD [address] [address] Reason Comments Liver Recipient Evaluation Status Reason Specialty Diagnoses / Procedures Referred By Contact Referred To Contact New Request Transplant / Transplant Surgery Procedures PRE NEW PATIENT Yovani Orr MD [address] [place] [address] Alfredito Restrepo MD [address] [place] [address] Reason Comments Reschedule Reason Comments Outside Medical Records Request Reason Comments Social Work Follow-up Reason Comments Kidney Stone Specialty Diagnoses / Procedures Referred By Deni edwards Referred To Contact Diagnoses Obstructing kidney stone, s/p kidney transplant 2019 Daya Saldana MD [address] [place] [address] [facility] [address] [place] [address] Referral ID Status Reason Start Date Expiration Date Visits Re quested Visits Authorized [id number] 1 1 Reason Comments Follow-up Reason Comments Kidney Recipient Follow-up Liver Recipient Follow-up Reason Comments Consult Reason Comments New Patient Hospital follow up Specialty Diagnoses / Procedures Referred By Deni edwards Referred To Contact Urology Diagnoses hosp fu with [address] prior Procedures NEW TO DOC/RET PATIENT Zuly Bruno, CRAFT WORKER [address] [place] [address] Ryan Yepez MD [address] [facility] [address] [place] [address] Referral ID Status Reason Start Date Expiration Date Visits Re quested Visits Authorized [id number] Closed 06/27/2022 07/22/2023 1 1 Specialty Diagnoses / Procedures Referred By Deni t Referred To Contact Diagnoses FAYE (acute kidney injury) Procedures CT ABDOMEN/PELVIS WITHOUT CONTRAST CHG CT SCAN,ABDOMENT AND PELVIS,W/O CONTRAST Central Scheduling [address] [place] [address] Referral ID Status Reason Start Date Expiration Date V isits Requested Visits Authorized [id number] Pending Review 05/16/2022 06/10/2023 1 1 Reason Comments Follow-up Specialty Diagnoses / Procedures Referred By Contac t Referred To Contact Urology Diagnoses 1 week fu post NT clamp Procedures RETURN PATIENT Zuly Bruno, CRAFT WORKER [address] [place] [address] Ryan Yepez MD [address] [place] [address] [address] [place] [phone] Referral ID Status Reason Start Date Expiration Date Visits Requested Visits Authorized [id number] Authorized - 07/07/2022 08/01/2023 2 2 Specialty Diagnoses / Procedures Referred By Contac t Referred To Contact Diagnoses Other hydronephrosis Procedures FLUORO IMAGING FOR UROLOGY Ryan Yepez MD [address] [place] [address] [address] [place] [id number] Referral ID Status Reason Start Date Expiration Date V isits Requested Visits Authorized [id number] New Request 07/07/2022 08/01/2023 1 1 Specialty Diagnoses / Procedures Referred By Contac t Referred To Contact Urology Diagnoses 1 week fu post NT clamp Procedures RETURN PATIENT Zuly Bruno, ROB [address] [place] [address] Ryan Yepez MD [address] [place] [address] [address] [place] [address] Referral ID Status Reason Start Date Expiration Date Visits Re quested Visits Authorized [id number] Closed 07/07/2022 08/01/2023 2 2 Reason Comments Liver Recipient Follow-up Reason Comments Kidney Recipient Follow-up Reason Comments Kidney Recipient Follow-up Specialty Diagnoses / Procedures Referred By Contac t Referred To Contact Diagnoses Kidney replaced by transplant Steve Munoz, LU [address] [place] [address] [facility] [address] [place] [address] Referral ID Status Reason Start Date Expiration Date Visits Re quested Visits Authorized [id number] 1 1 Specialty Diagnoses / Procedures Referred By Contac t Referred To Contact Diagnoses Pleural effusion on right PNEUMONIA- HX LIVER AND KIDNEY TRANSPLANT Kevin Sage MD [address] [place] [address] [facility] [address] [place] [address] Referral ID Status Reason Start Date Expiration Date Visits Re quested Visits Authorized [id number] 1 1 Reason Comments New Patient Specialty Diagnoses / Procedures Referred By Contac t Referred To Contact Cardiovascular Medicine Diagnoses Heart failure, diastolic, acute Kelvin Pacheco MD, MBBS [address] [place] [address] Referral ID Status Reason Start Date Expiration Date Visits Requested Visits Authorized [id number] Authorized - 01/20/2024 02/13/2025 5 5 (unrecognized sect ion and content) No Status Records FoundNo Status Records FoundNo Status Records FoundNo Status Records FoundNo Status Records FoundNo Status Records Found INFORMATION SOURCE (unrecogn ized section and content) DATE CREATED AUTHOR 01/07/2020 [facility] DATE CREATED AUTHOR AUTHOR'S ORGANIZ ATION 01/27/2021 [facility] DATE CREATED AUTHOR AUTHOR'S ORGANIZ ATION 04/13/2023 [facility] DATE CREATED AUTHOR AUTHOR'S ORGANIZ ATION 05/11/2023 [facility] DATE CREATED AUTHOR AUTHOR'S ORGANIZ ATION 04/19/2024 [facility] EPIC DATE CREATED AUTHOR AUTHOR'S ORGANIZ ATION 05/08/2024 [facility] Care Teams (unrecognized sec tion and content) 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 Start Date End Date Zuly Bruno, CRAFT WORKER PCP - General 07/19/18 MiguelComfort, [facility] [address] [place] [address] Pharmacist Pharmacist 05/16/20 Angel Carpio [facility],PharmD Pharmacist Pharmacist 05/16/20 Te Leigh [facility],PharmD Pharmacist Pharmacist 01/09/21 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 Start Date End Date Zuly Bruno CNP PCP - General 07/19/18 Miguel Comfort C, [facility] [address] [place] [address] Pharmacist Pharmacist 05/16/20 Angel Carpio [facility],PharmD Pharmacist Pharmacist 05/16/20 Te Leigh [facility],PharmD Pharmacist Pharmacist 01/09/21 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 Start Date End Date Zuly Bruno CNP PCP - General 07/19/18 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 Start Date End Date Zuly Bruno CNP PCP - General 07/19/18 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 Start Date End Date Zuly Bruno CNP PCP - General 07/19/18 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 Start Date End Date Zuly Bruno CNP PCP - General 07/19/18 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 Start Date End Date Zuly Bruno CNP PCP - General 07/19/18 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 Start Date End Date Zuly Bruno CNP PCP - General 07/19/18 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 Start Date End Date Zuly Bruno CNP PCP - General 07/19/18 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 Start Date End Date Zuly Bruno CNP PCP - General 07/19/18 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 Start Date End Date BrianlatishaZuly tipton CNP PCP - General 07/19/18 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 Start Date End Date Zuly Bruno CNP PCP - General 07/19/18 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 Start Date End Date BrianlatishaZuly tipton CNP PCP - General 07/19/18 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 Start Date End Date Lexielydiajose eZuly CNP PCP - General 07/19/18 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 Start Date End Date Lexielydiajose e Zuly, ROB PCP - General 07/19/18 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 Start Date End Date LexielydiaAnnie dorantestray ROB PCP - General 07/19/18 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 Start Date End Date Lexielydiajose e Zuly, ROB PCP - General 07/19/18 Evan White DO [address] [place] [address] Infectious Disease Infectious Disease 09/09/23 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 Start Date End Date Zuly Bruno CNP PCP - General 07/19/18 Evan White DO [address] [place], [place] [id number] Infectious Disease Infectious Disease 09/09/23 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 Start Date End Date Zuly Bruno CNP PCP - General 07/19/18 Evan White DO [address] [place], [place] [address] Infectious Disease Infectious Disease 09/09/23 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 Start Date End Date Momo Verdugo MD PCP - General Family Medicine 05/21/23 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 Start Date End Date Momo Verdugo MD PCP - General Family Medicine 05/21/23 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 Start Date End Date Momo Verdugo MD PCP - General Family Medicine 05/21/23 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 Start Date End Date Zuly Bruno CNP PCP - General 07/19/18 Evan White DO [address] [place], [place] [address] Infectious Disease Infectious Disease 09/09/23 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 Start Date End Date Zuly Bruno ROB PCP - General 07/19/18 Evan White DO [address] [place] [address] Infectious Disease Infectious Disease 09/09/23 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 Start Date End Date Zuly Bruno ORB PCP - General 07/19/18 Evan White DO [address] [place] [address] Infectious Disease Infectious Disease 09/09/23 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 Start Date End Date Zuly Bruno CNP PCP - General 07/19/18 Evan White DO [address] [place] [address] Infectious Disease Infectious Disease 09/09/23 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 1753 (Given - Provider: Josey Braun RN) senna (SENOKOT) tablet 8.6 mg 8.6 mg, Oral, DAILY, First dose on Thu05/16/22 at 0900, Until Discontinued 08 (Given - Provider: Mel Hampton RN) 0806 (Given - Provider: Josey Braun, RN) 0932 (Given - Provider: Leon Cook, RN) sodium-potassium phosphate (K-PHOS NEUTRAL) tablet 1,000 [...] CONTINUOUS, Starting on 05/18/22 at 1230, Until Thu05/18/22 at 1645 1557 ($$New Bag$$ - Provider: Mel Hampton RN)1558 (Rate/Dose Verify - Provider: Carolyn Isaac RN)1737 (Paused - Provider: Carolyn Isaac RN)1807 (Restarted - Provider: Carolyn Isaac RN)182 (Paused - Provider: Carolyn Isaac, SAMI)182 (Restarted - Provider: Carolyn Isaac RN)192 (Rate/Dose [...] EVERY 6 HOURS NEEDED, Starting on Marta /16/22 at 2206, Until Thu05/20/22 at 2110, Nausea [...] Provider: Terra Heart RN - Reason: Patient/family refused)211 (Not Given - Provider: Carolyn Plasencia RN - Reason: Patient/family refused) 09 (Not Given - Provider: Cheyanne Mcdonough RN [...] after administration. 0558 (Given - Provider: Girish Nunez, SAMI)1609 (Given - Provider: Aixa Holden RN) 0617 [...] crush 0753 (Given - Provider: Aixa Holden, SAMI) 0855 (Given - Provider: Terra Heart, SAMI) 0967 (Given - Provider: Cheyanne Mcdonough, SAMI) PRN [...] Heart RN) 1530 (Given - Provider: Terra Heart, SAMI) faMOTIdine (PEPCID) tablet 20 mg 20 mg, [...] 2033 (Given - Provider: Tati Ahmadi RN) 105 (JAN Hold - Provider: Automatic [...] 0842 (Given - Provider: Terra Heart RN)105 (JAN [...] 0846 (Given - Provider: Terra Heart RN)1053 ([facility] Hold - Provider: Automatic Transfer - Reason: Transfer to a Procedural area)1414 ([facility] Unhold - Provider: Automatic Transfer) tacrolimus (PROGRAF) susp 0.2 mg 0.2 mg, Oral, CUSTOM FREQUENCY (Once per day on Thursday), First dose on 01/16/24 at 0900, Until Discontinued, Caution check route of administration. For sublingual administration, place liquid under tongue and allow absorption. 0842 (Given - Provider: Erica [place]udino RN) 1053 ([facility] Hold - Provider: Automatic Transfer - Reason: Transfer to a Procedural area)1414 ([facility] Unhold - Provider: Automatic Transfer) 0923 (Given - Provider: Terra Heart RN) Tamsulosin HCl (FLOMAX) capsule 0.4 mg 0.4 mg, Oral, DAILY, First dose on Thu01/16/24 at 0900, Until Discontinued, Slow release product. Do not chew or crush 0842 (Given - Provider: Eriac Gudino RN) 0841 (Given - Provider: Terra Heart RN)1053 ([facility] Hold - Provider: Automatic Transfer - Reason: Transfer to a Procedural area)1414 ([facility] Unhold - Provider: Automatic Transfer) 0920 (Given [...] mg/day 0841 (Given - Provider: Terra Heart RN)105 ([facility] Hold - Provider: Automatic Transfer - Reason: Transfer to a Procedural area)1414 ([facility] Unhold - Provider: Automatic Transfer) 0920 (Given - Provider: Terra Heart, SAMI) PRN Medication Order 01/21/2024 01/22/2024 01/23/2024 Acetaminophen (TYLENOL) tablet 650 mg 650 mg, Oral, EVERY 6 HOURS NEEDED, Starting on 01/16/24 at 0202, Until 01/23/24 at 1752, Mild Pain, Moderate Pain, Severe Pain, Oral temp > 101.5 F, 1st line for Pain, Maximum dose of acetaminophen is 4000 mg from all sources in 24 hours. 1053 ([facility] Hold - Provider: Automatic Transfer - Reason: Transfer to a Procedural area)1414 ([facility] Unhold - Provider: Automatic Transfer)1806 (Given - [...] 200-200 mg and Simethicone 20 mg) 1053 ([facility] Hold - Provider: Automatic Transfer - Reason: Transfer to a Procedural area)1414 ([facility] Unhold - Provider: Automatic Transfer) guaiFENesin (ROBITUSSIN) oral solution 400 mg 400 mg, Oral, EVERY 6 HOURS NEEDED, Starting on 01/16/24 at 0202, Until 01/23/24 at 1752, Cough, Congestion 1053 ([facility] Hold - Provider: Automatic Transfer - Reason: Transfer to a Procedural area)1414 ([facility] Unhold - Provider: Automatic Transfer) HYDROmorphone (DILAUDID) [...] 0016, Until 01/23/24 at 1752, Insomnia 1053 ([facility] Hold - Provider: Automatic Transfer - Reason: Transfer to a Procedural area)1414 ([facility] Unhold - Provider: Automatic Transfer)2355 (Given - Provider: Tati Ahmadi RN) Ondansetron (ZOFRAN) tablet 4 mg(Linked Group 1) 4 mg, Oral, EVERY 6 HOURS NEEDED, Starting on 01/16/24 at 0202, Until 01/23/24 at 1752, Nausea / Vomiting, 1st line for Nausea/Vomiting 1053 ([facility] Hold - Provider: Automatic Transfer - Reason: Transfer to a Procedural area)1414 ([facility] Unhold - Provider: Automatic Transfer)1809 (See Alternative - Provider: Terra Heart RN) 0430 (See Alternative - Provider: Tati Ahmadi RN)1415 (Given - Provider: Terra Heart RN) Ondansetron 4mg/2ml (ZOFRAN) injection 4 mg(Linked Group 1) 4 mg, Intravenous, EVERY 6 HOURS NEEDED, Starting on 01/16/24 at 0202, Until 01/23/24 at 1752, Nausea / Vomiting, 1st line for Nausea/Vomiting 1053 ([facility] Hold - Provider: Automatic Transfer - Reason: Transfer to a Procedural area)1414 ([facility] Unhold - Provider: Automatic Transfer)1809 (Given - [...] 01/23/24 at 1752, Constipation 1st Line 1053 ([facility] Hold - Provider: Automatic Transfer - Reason: Transfer to a Procedural area)1414 ([facility] Unhold - Provider: Automatic Transfer) Prochlorperazine (COMPAZINE) injection 10 mg 10 mg, Intravenous, EVERY 6 HOURS NEEDED, Starting on 01/17/24 at 1538, Until 01/23/24 at 1752, Nausea / Vomiting, Refractory Nausea Vomiting, For IV route: dilute dose with 10mL normal saline and give by slow IV push at a rate of 5mg/min. Maximum of 40mg/day. 1053 ([facility] Hold - Provider: Automatic Transfer - Reason: Transfer to a Procedural area)1414 ([facility] Unhold - Provider: Automatic Transfer)2349 (Given - [...] the intermittent or piggy back medication. 1053 ([facility] Hold - Provider: Automatic Transfer - Reason: Transfer to a Procedural area)1414 ([facility] Unhold - Provider: Automatic Transfer) No Frequency [...] BE BASED ON THE PRIMARY CLINICAL RECORDS. [facility]. provides no warranty or guarantee of the accuracy or completeness of information in this document.
[2024-05-09 07:21] LABS: Protein Creatinine Ratio Urine 0.14; Total Protein Urine Random 18.3 mg/dL (<=11.9)
[2024-05-09 07:34] LABS: Alanine Aminotransferase 19 U/L (16-63); Albumin Level 3.7 g/dL (3.4-5.0); Alkaline Phosphatase 120 U/L (46-116); Anion Gap 11.1; Aspartate Amino Transferase 15 U/L (15-37); BUN Creatinine Ratio 18.3; Bilirubin Direct 0.2 mg/dL (0.0-0.2); Bilirubin Total 0.8 mg/dL (0.2-1.0); Calcium 9.3 mg/dL (8.5-10.1); Carbon Dioxide 27.9 mmol/L (21.0-32.0); Chloride 106 mmol/L (98-107); Chol HDL Ratio 2.8; Cholesterol 133 mg/dL (<=200); Estimated GFR (African America >60 (>=60); Estimated GFR (Non-African Ame >60 (>=60); Gamma Glutamyl Transpeptidase 20 U/L (15-85); Glucose 109 mg/dL (74-106); HDL Cholesterol 48 mg/dL (40-60); Magnesium 2.2 mg/dL (1.8-2.4); Phosphorus 3.5 mg/dL (2.6-4.7); Sodium 141 mmol/L (136-145); Triglycerides 45 mg/dL (<=150)
[2024-05-09 07:58] LABS: Basophils Percent Auto 0.8 % (0.2-2.0); Eosinophils Absolute Auto 0.2 10^3/uL (0.0-0.7); Eosinophils Percent Auto 3.2 % (0.9-7.0); Hematocrit 42.8 % (42.0-54.0); Hemoglobin 13.9 g/dL (14.0-18.0); Immature Granulocytes Abs Auto 0.01 10^3/uL (0.00-0.03); Immature Granulocytes Pct Auto 0.2 % (0.0-0.5); Lymphocytes Absolute Auto 1.4 10^3/uL (1.2-3.8); Lymphocytes Percent Auto 27.5 % (20.5-60.0); Mean Corpuscular HGB Conc 32.5 g/dL (29.9-35.2); Mean Corpuscular Hemoglobin 29.2 pg (25.9-34.0); Mean Corpuscular Volume 89.9 fL (80.0-94.0); Mean Platelet Volume 9.9 fL (9.5-13.5); Monocytes Absolute Auto 0.5 10^3/uL (0.3-0.8); Monocytes Percent Auto 9.7 % (1.7-12.0); Neutrophils Absolute Auto 2.9 10^3/uL (1.4-6.5); Neutrophils Percent Auto 58.6 % (43.0-75.0); Platelet Count 221 10^3/uL (150-450); Red Blood Count 4.76 10^6/uL (4.70-6.10); Red Cell Distribution Width 13.2 % (11.0-15.0)
[2024-05-11 22:07] LABS: Tacrolimus (FK506), Blood 1.9 ng/mL (2.0-20.0)
== END 2024-05-09 06:35 | disposition home or self-care (01) ==
LOC: LAB 06:37
PROVIDERS: PCP Nurse Practitioner
DX: Z79.899 Other long term (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 (principal); Z94.4 Liver transplant status; Z94.0 Kidney transplant status; B39.9 Histoplasmosis, unspecified; Z48.298 Encounter for aftercare following other organ transplant; R79.9 Abnormal finding of blood chemistry, unspecified
CPT/HCPCS: 36415; 80048; 80061; 80189; 80197; 82042; 82247; 82248; 82570; 82977; 83735; 84075; 84100; 84156; 84450; 84460; 85025

== ENCOUNTER 2024-05-16 06:35 | Outpatient (OUT) | payer MEDICARE, MEDICAID, SELFPAY ==
--- OUTSIDE RECORDS SUMMARY | 2024-05-16 06:43 | XMS_ITS | CCD ---
Author Organization [facility] Care Team Providers Care Tractor Expert Name Role Phone Kiana Zuly Unavailable Unavailable [...] Unavailable AICHHOLZ, ZULY Primary Care Unavailable Aichholz [facility], [facility] Primary Care Provider Miguel [facility] Unavailable Shirin [facility],PharmD, Angel Unavailable Unavailab makayla Leigh [facility],PharmD, Te Unavailable Unavai lable Aicholz [facility] Primary Care Provider [phone] CRISTINA, DR BURCH Admitting Unavailable MISC, DR BURCH Consulting Unavailable AICHHOLZ, PERSONAL FITNESS MANAGER ZULY Primary Care Unavailable MISC, DR BURCH Attending Unavailable MISC, DR BURCH Admitting Unavailable MISC, DR BURCH Consulting Unavailable AICHHOLZ, PERSONAL FITNESS MANAGER ZULY Primary Care Unavailable MISC, DR BURCH Attending Unavailable ARCELIA PIZARRO Consulting Unavailable KE BURNHAM Attending Unavailable KE BURNHAM Admitting Unavailable BARBARA, DR MÓNICA Munoz Consulting Unavailable AICHHOLZ, PERSONAL FITNESS MANAGER ZULY Primary Care Unavailable KE BURNHAM Consulting Unavailable CRISTINA, DR BURCH Consulting Unavailable MISC, DR BURCH Attending Unavailable AICHHOLZ, PERSONAL FITNESS MANAGER ZULY Primary Care Unavailable MISC, DR DOCTOR Admitting Unavailable MISC, DR DOCTOR Consulting Unavailable MISC, DR DOCTOR Attending Unavailable AICHHOLZ, PERSONAL FITNESS MANAGER ZULY Primary Care Unavailable MISC, DOCTOR Admitting Unavailable MISC, DR DOCTOR Consulting Unavailable AICHHOLZ, PERSONAL FITNESS MANAGER ZULY Primary Care Unavailable MISC, DOCTOR Admitting Unavailable MISC, DR DOCTOR Attending Unavailable MELINDA, DR GEORGE Munoz Consulting Unavailable MELINDA, DR GEORGE Munoz Attending Unavailable AICHHOLZ, PERSONAL FITNESS MANAGER ZULY Primary Care Unavailable MELINDA, DR GEORGE Munoz Admitting Unavailable NAUN ., KE Consulting Unavailable MIRANDA, LYNDSAY Consulting Unavailable MELINDA, DR GEORGE Munoz Consulting Unavailable NAUN ., KE Attending Unavailable NAUN ., KE Admitting Unavailable AICHHOLZ, PERSONAL FITNESS MANAGER ZULY Primary Care Unavailable NAUN ., KE Consulting Unavailable GIAN HERRING Consulting Unavailable AICHHOLZ, PERSONAL FITNESS MANAGER ZULY Consulting Unavailable AICHHOLZ, PERSONAL FITNESS MANAGER ZULY Attending Unavailable AICHHOLZ, PERSONAL FITNESS MANAGER ZULY Admitting Unavailable AICHHOLZ, PERSONAL FITNESS MANAGER ZULY Primary Care Unavailable MISC, DR BURCH Consulting Unavailable MISC, DR BURCH Admitting Unavailable MISC, DOCTOR Attending Unavailable AICHHOLZ, PERSONAL FITNESS MANAGER ZULY Primary Care Unavailable MISC, DR DOCTOR Consulting Unavailable MISC, DR DOCTOR Attending Unavailable MISC, DOCTOR Admitting Unavailable AICHHOLZ, PERSONAL FITNESS MANAGER ZULY Primary Care Unavailable MISC, DR BURCH Admitting Unavailable MISC, DR BURCH Consulting Unavailable MISC, DR DOCTOR Attending Unavailable AICHHOLZ, PERSONAL FITNESS MANAGER ZULY Primary Care Unavailable MISC, DOCTOR Admitting Unavailable MISC, DR DOCTOR Consulting Unavailable AICHHOLZ, PERSONAL FITNESS MANAGER ZULY Primary Care Unavailable MISC, DR DOCTOR Attending Unavailable MISC, DOCTOR Admitting Unavailable MISC, DR DOCTOR Consulting Unavailable AICHHOLZ, PERSONAL FITNESS MANAGER ZULY Primary Care Unavailable MISC, DR DOCTOR Attending Unavailable AICHHOLZ, PERSONAL FITNESS MANAGER ZULY Consulting Unavailable AICHHOLZ, PERSONAL FITNESS MANAGER ZULY Attending Unavailable AICHHOLZ, PERSONAL FITNESS MANAGER ZULY Admitting Unavailable AICHHOLZ, PERSONAL FITNESS MANAGER ZULY Primary Care Unavailable DR MÓNICA JIMENEZ Consulting Unavailable Aichholz [facility], Zuly Primary Care Provider [facility] DOs A Unavailable Aicholz [facility] Primary Care Provider [facility] hospitalMilton ortiz DOolas A Unavailable [phone] Momo Verdugo MD Primary Care Provider [phone] Aichholz ROB Zuly Primary Care Provider AICHHOLZ, ZULY Attending Unavailable [...] ALMAGUER Attending Unavailable KELVIN PACHECO Referring Unavailable MIGUEL CARDONA Attending Unavailable Allergies Allergy Classification Reported Allergen(s) Allergy Type Date of Onset Reaction(s) Facility (2 sources) Shellfish; Translations: [SHELLFISH DERIVED] Propensity to adverse reactions (disorder) [address] [facility] Repository (20 sources) Shellfish-Derive d Products Propensity to adverse reactions to drug 9 [facility] (1 source) Shellfish Drug allergy (disorder) The [facility] Repository Medications Current Medications Medication Drug [...] 1 capsule by mouth once daily b knijfhr-Y-gyrit acid (NEPHROCAPS) 1 MG capsule Take 1 [...] ankle pain. 0 06/12/2020 06/12/2023 Discontinued lactulose 95472 mg powder for oral solution (19 sources) [...] itraconazole Fax results to: Dr. White - [phone] Transplant Neph - [phone] Each 09/10/2023 01/19/2024 Discontinued (Medication Reconciliation (suppress cancel msg)) Start: 09-10-2023 CUSTOM MEDICAT ION Labs to be obtained: 1- Tacrolimus level, trough - collect twice weekly until 09/24/23, then weekly until 10/08/23, them once every two weeks there after. 2- Itraconazole level - obtain once between 09/14-09/18. 3- Chem 6 - Obtain weekly while on itraconazole Fax results to: Dr. White - [phone] Transplant [facility] - [phone] Each 0 09/10/2023 Active Diatrizoate (1 [...] Discontinued take 2 tablets by mo [facility] in the morning magnesium oxide (Mag-Ox) [...] (ROXICODONE) tablet 10 mg polyethylene glycol 3350 53940 mg powder for oral solution (20 sources) [...] rate of 5mg/min. Maximum of 40mg/day. sennosides, penitentiary 8.6 mg oral tablet (1 [...] Coronary arteriosclerosis; Translations: [Atherosclerotic heart disease of [place] coronary artery without angina pectoris] Onset: 3 04-22-2020 Chronic Deficiency and other anemia (3 sources) Anemia; Translations: [Anemia, unspecified] Onset: 3 11-03-2023 Episodic Diabetes mellitus without complication (3 sources) Hyperglycemia; Translations: [Hyperglycemia, unspecified] Onset: 3 11-03-2023 Episodic Disorders of lipid metabolism (6 sources) Hyperlipidemia, unspecified; Translations: [Mixed hyperlipidemia] Onset: 3 Chronic Esophageal disorders (3 sources) [...] sources) Taking high risk medication; Translations: [Other retirement (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] Episodic Other and ill-defined [...] diseases (3 sources) Liver transplant status; Translations: [LIVER TRANSPLANT STATUS] Onset: Chronic Other lower respiratory disease (1 [...] is receiving therapeutic benefit Onset: 3 03-26-2023 Unclassified (1 source) Other pericardial effusion (noninflammatory); Translations: [Other pericardial effusion (noninflammatory)] Onset: 4 Past or Other Problems Problem Classification Problem [...] 05-10-2020 Episodic Other aftercare (2 sources) Other retirement (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; Translations: [OTH ALF 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 THERAPY] Onset: 07-06-2022 Episodic Other aftercare (1 source) detention (current) use of aspirin; Translations: [ALF CURRENT USE OF ASPIRIN] Onset: 06-20-2022 Episodic [...] transplant] Onset: 08-28-2023 Unclassified (1 source) Other retirement (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; Translations: [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] Onset: 08-28-2023 Unclassified (1 source) Hypertension secondary to other renal disorders; Translations: [Hypertension secondary to other renal disorders] Onset: 08-28-2023 Unclassified (1 source) Other pericardial effusion (noninflammatory); Translations: [Other pericardial effusion (noninflammatory)] Onset: 05-13-2024 Results Test Name Value Interpretation Reference Range Facility Office Visiton 05-13-2024 Follow-up visit [id number] George Styles 1970 M Date Provider Department Center 05/13/2024 Júnior-MIGUEL CARDONA [facility] Family History Problem Relation Age of Onset Coronary artery disease Mother Coronary artery disease Father Family Status - Relation Status Age at Mother Father Level of Service:19673 [place] OFFICE/OUTPATIENT ESTABLISHED LOW MDM 20 MIN Reason for Visit and Comments: Follow-up [318056] - Yearly follow up Normal [facility] B-TYPE NATRIURETIC PEPTIDE ( BRAIN)on 02-26-2024 Interpretation and review of laboratory results Normal [facility] Natriuretic peptide B (Bld) [Mass/Vol] 72 pg/mL 0 - 100 pg/mL [facility] Natriuretic peptide B (Bld) [Mass/Vol] 72 pg/mL Normal 0-100 [facility] Comment on above: Performed By: #### B DRAIN CLEANER PLUMBER ####[facility] (DEFAULT)[address] [place] [address] CHEM 6 (LYTES, BUN CREA)on 0 02-26-2024 Anion gap [Moles/Vol] 13 mmol/L 7 - 17 mmol/L [facility] Chloride [Moles/Vol] 107 mmol/L 98 - 10 8 mmol/L [facility] CO2 [Moles/Vol] 25 mmol/L 21 - 31 mmol/L [facility] Creatinine [Mass/Vol] 1.23 mg/dL 0.70 - 1.30 mg/dL [facility] eGFR, CKD-EPI, Male 70 - PINF [facility] Comment on above: Reported eGFR is bas ed on the CKD-EPI 2020 equation using creatinine, age, and sex. Potassium [Moles/Vol] 4.2 mmol/L 3.5 - 5.0 mmol/L [facility] Sodium [Moles/Vol] 141 mmol/L 135 - 145 mmol/L [facility] Urea nitrogen [Mass/Vol] 17 mg/dL 7 - 25 mg/dL [facility] Urea nitrogen/Creatinine [Mass ratio] 14 mg/mg [facility] Anion gap [Moles/Vol] 13 mmol/L Normal 7-17 [facility] Comment on above: Performed By: #### C HM6 ####[facility] (DEFAULT)[address] [place] [address] Chloride [Moles/Vol] 107 mmol/L Normal 98-108 [facility] Comment on above: Performed By: #### C HM6 ####[facility] (DEFAULT)[address] [place] [address] CO2 [Moles/Vol] 25 mmol/L Normal 21-31 [facility] Comment on above: Performed By: #### C HM6 ####U [facility] (DEFAULT)[address] [facility] [place] [address] Creatinine [Mass/Vol] 1.23 mg/dL Normal 0.70-1.30 [facility] Comment on above: Performed By: #### C HM6 ####[facility] (DEFAULT)[address] [facility] [place] [address] GFR/1.73 sq M.predicted among non-blacks MDRD (S/P/Bld) [Vol rate/Area] 70 mL/min/{1.73_m2} Normal >=60 [facility] Comment on above: Result Comment: Repo rted eGFR is based on the CKD-EPI 2020 equation using creatinine, age, and sex. Performed By: #### C HM6 ####[facility] (DEFAULT)[address] [facility] [place] [address] Potassium [Moles/Vol] 4.2 mmol/L Normal 3.5-5.0 [facility] Comment on above: Performed By: #### C HM6 ####U [facility] (DEFAULT)[address] [facility] [place] [address] Sodium [Moles/Vol] 141 mmol/L Normal 135-145 [facility] Comment on above: Performed By: #### C HM6 ####[facility] (DEFAULT)[address] [facility] [place] [address] Urea nitrogen [Mass/Vol] 17 mg/dL Normal 7-25 [facility] Comment on above: Performed By: #### C HM6 ####[facility] (DEFAULT)[address] [place] [address] Urea nitrogen/Creatinine [Mass ratio] 14 mg/mg Normal [facility] Comment on above: Performed By: #### C HM6 ####[facility] (DEFAULT)[address] [place] [address] CBC,PLATELETSon 01-23-2024 Erythrocyte distribution width (RBC) [Ratio] 14.2 % 10.9 - 14.3 % [facility] Hematocrit (Bld) [Volume fraction] 37.0 % Low 39.6 - 48.8 % [facility] Hemoglobin (Bld) [Mass/Vol] 12.0 g/dL Low 13.4 - 16.8 g/dL [facility] Interpretation and review of laboratory results Abnormal [facility] MCH (RBC) [Entitic mass] 28.6 pg 26.1 - 33.3 pg [facility] MCHC (RBC) [Mass/Vol] 32.4 g/dL 31.9 - 36.5 g/dL [facility] MCV (RBC) [Entitic vol] 88.1 fL 79.0 - 94.5 fL [facility] Platelet mean volume (Bld) [Entitic vol] 10.4 fL 8.7 - 12.3 fL [facility] Platelets (Bld) [#/Vol] 170 10*3/uL 146 - 337 K/uL [facility] RBC (Bld) [#/Vol] 4.20 10*6/uL Low [facility] WBC (Bld) [#/Vol] 3.70 10*3/uL Low 3.73 - 10. 10 K/uL [facility] Hematocrit (Bld) [Volume fraction] 37.0 % Low 39.6-48.8 [facility] Comment on above: Performed By: #### H [facility] ####[facility] (DEFAULT)[address] [place] [address] Hemoglobin (Bld) [Mass/Vol] 12.0 g/dL Low 13.4-16.8 [facility] Comment on above: Performed By: #### H EMOGC ####[facility] (DEFAULT)[address] [place] [address] MCV (RBC) [Entitic vol] 88.1 fL Normal 79.0-94.5 [facility] Comment on above: Performed By: #### H EMOGC ####[facility] (DEFAULT)[address] [facility] [place] [address] Mean Cell Hgb 28.6 pg Normal 26.1-33.3 [facility] Comment on above: Performed By: #### H EMOGC ####[facility] (DEFAULT)[address] [facility] [place] [address] Mean Cell Hgb Conc 32.4 g/dL Normal 31.9-36.5 [facility] Comment on above: Performed By: #### H EMO ####[facility] (DEFAULT)[address] [facility] [place] [address] Platelet mean volume (Bld) [Entitic vol] 10.4 fL Normal 8.7-12.3 [facility] Comment on above: Performed By: #### H EMOGC ####[facility] (DEFAULT)[address] [facility] [place] [address] Platelets (Bld) [#/Vol] 170 10*3/uL Normal 146-337 [facility] Comment on above: Performed By: #### H EMOGC ####[facility] (DEFAULT)[address] [facility] [place] [address] RBC (Bld) [#/Vol] 4.20 10*6/uL Low 4.38-5.83 [facility] Comment on above: Performed By: #### H EMOGC ####[facility] (DEFAULT)[address] [facility] [place] [address] RBC Distribution 14.2 % Normal 10.9-14.3 [facility] Comment on above: Performed By: #### H [facility] ####[facility] (DEFAULT)[address] [place] [address] WBC (Bld) [#/Vol] 3.70 10*3/uL Low 3.73-10.10 [facility] Comment on above: Performed By: #### H [facility] ####[facility] (DEFAULT)[address] [place] [address] CHEM 7 (LYTES,BUN,CREA,GLUC) on 01-23-2024 Anion gap [Moles/Vol] 14 mmol/L 7 - 17 mmol/L [facility] Chloride [Moles/Vol] 105 mmol/L 98 - 10 8 mmol/L [facility] CO2 [Moles/Vol] 25 mmol/L 21 - 31 mmol/L [facility] Creatinine [Mass/Vol] 1.32 mg/dL High 0.70 - 1.30 mg/dL [facility] eGFR, CKD-EPI, Male 65 - PINF [facility] Comment on above: Reported eGFR is bas ed on the CKD-EPI 2020 equation using creatinine, age, and sex. Glucose [Mass/Vol] 94 mg/dL 70 - 99 mg/dL [facility] Osmolality Calc [facility]olality] [facility] Potassium [Moles/Vol] 3.8 mmol/L 3.5 - 5.0 mmol/L [facility] Sodium [Moles/Vol] 140 mmol/L 135 - 145 mmol/L [facility] Urea nitrogen [Mass/Vol] 23 mg/dL 7 - 25 mg/dL [facility] Urea nitrogen/Creatinine [Mass ratio] 17 mg/mg [facility] Anion gap [Moles/Vol] 14 mmol/L Normal 7-17 [facility] Comment on above: Performed By: #### M GO, CHM7, [facility] ####[facility] (DEFAULT)[address] [place] [address] Chloride [Moles/Vol] 105 mmol/L Normal 98-108 [facility] Comment on above: Performed By: #### NATHANIEL RAMÍREZ, HFP ####[facility] (DEFAULT)[address] [place] [address] CO2 [Moles/Vol] 25 mmol/L Normal 21-31 [facility] Comment on above: Performed By: #### NATHANIEL RAMÍREZ, HFP ####[facility] (DEFAULT)[address] [facility] [place] [address] Creatinine [Mass/Vol] 1.32 mg/dL High 0.70-1.30 [facility] Comment on above: Performed By: #### NATHANIEL RAMÍREZ, HFP ####Lucius [facility] (DEFAULT)[address] [facility] [place] [address] GFR/1.73 sq M.predicted among non-blacks MDRD (S/P/Bld) [Vol rate/Area] 65 mL/min/{1.73_m2} Normal >=60 [facility] Comment on above: Result Comment: Repo rted eGFR is based on the CKD-EPI 2020 equation using creatinine, age, and sex. Performed By: #### NATHANIEL RAMÍREZ, HFP ####[facility] (DEFAULT)[address] [facility] [place] [address] Glucose [Mass/Vol] 94 mg/dL Normal 70-99 [facility] Comment on above: Performed By: #### NATHANIEL RAMÍREZ, HFP ####[facility] (DEFAULT)[address] [place], [place] [address], [place] [address] Osmolality [Osmolality] 296 mosm/kg Normal 278-305 [facility] Comment on above: Performed By: #### NATHANIEL RAMÍREZ, HFP ####[facility] (DEFAULT)[address] [place] [address] Potassium [Moles/Vol] 3.8 mmol/L Normal 3.5-5.0 [facility] Comment on above: Performed By: #### NATHANIEL RAMÍREZ, HFP ####[facility] (DEFAULT)[address] [place] [address] Sodium [Moles/Vol] 140 mmol/L Normal 135-145 [facility] Comment on above: Performed By: #### NATHANIEL RAMÍREZ, HFP ####[facility] (DEFAULT)[address] [facility] [place] [address] Urea nitrogen [Mass/Vol] 23 mg/dL Normal 7-25 [facility] Comment on above: Performed By: #### NATHANIEL RAMÍREZ, HFP ####[facility] (DEFAULT)[address] [facility] [place] [address] Urea nitrogen/Creatinine [Mass ratio] 17 mg/mg Normal [facility] Comment on above: Performed By: #### NATHANIEL RAMÍREZ, HFP ####[facility] (DEFAULT)[address] [facility] [place] [address] GLUCOSE POCon 01-23-2024 Glucose [Mass/Vol] 88 mg/dL 70 - 99 mg/dL [facility] POC Sample Type CAPBL [facility] Test performed at ad dress of the patient encounter. [facility] Glucose [Mass/Vol] 191 mg/dL High 70 - 99 mg/dL [facility] Interpretation and review of laboratory results Abnormal [facility] POC Sample Type CAPBL [facility] Test performed at ad dress of the patient encounter. [facility] HEPATIC FUNCTION PANELon Albumin [Mass/Vol] 3.9 g/dL 3.5 - 5.0 g/dL [facility] ALP [Catalytic activity/Vol] 83 U/L 32 - 126 U/L [facility] ALT [Catalytic activity/Vol] 9 U/L Low 10 - 52 U/L [facility] AST [Catalytic activity/Vol] 17 U/L 10 - 39 U/L [facility] Bilirubin [Mass/Vol] 1.6 mg/dL High NINF - 1.5 mg/dL [facility] Bilirubin.direct [Mass/Vol] 0.4 mg/dL High NINF - 0.3 mg/dL [facility] Protein [Mass/Vol] 6.6 g/dL 6.4 - 8.3 g/dL [facility] Albumin [Mass/Vol] 3.9 g/dL Normal 3.5-5.0 [facility] Comment on above: Performed By: #### M NATHANIEL BLOOM, HFP ####[facility] (DEFAULT)[address] [place] [address] ALP [Catalytic activity/Vol] 83 U/L Normal 32-126 [facility] Comment on above: Performed By: #### NATHANIEL RAMÍREZ, HFP ####[facility] (DEFAULT)[address] [place] [address] ALT [Catalytic activity/Vol] 9 U/L Low 10-52 [facility] Comment on above: Performed By: #### NATHANIEL RAMÍREZ, HFP ####[facility] (DEFAULT)[address] [place] [address] AST [Catalytic activity/Vol] 17 U/L Normal 10-39 [facility] Comment on above: Performed By: #### M NATHANIEL BLOOM, HFP ####[facility] (DEFAULT)[address] [place] [address] Bilirubin [Mass/Vol] 1.6 mg/dL High <1.5 [facility] Comment on above: Performed By: #### NATHANIEL RAMÍREZ, HFP ####[facility] (DEFAULT)[address] [place] [address] Bilirubin.indirect [Mass/Vol] 0.4 mg/dL High <0.3 [facility] Comment on above: Performed By: #### NATHANIEL RAMÍREZ, [facility] ####[facility] (DEFAULT)[address] [place] [address] Protein [Mass/Vol] 6.6 g/dL Normal 6.4-8.3 [facility] Comment on above: Performed By: #### M TJ BLOOM7, HFP ####[facility] (DEFAULT)[address] [place] [address] ITRACONAZOLE LEVELon 024 Hydroxyitraconazole [Mass/Vol] 7.6 mcg/mL [facility] Comment on above: REFERENCE VALUE No therapeutic range established; activity and serum concentration are similar to parent drug. ADDITIONAL INFORMATION This test was developed and its performance characteristics determined by [facility] in a manner consistent with CLIA requirements. This test has not been cleared or approved by the [place].S. Food and Drug Administration. Test Performed by: [facility] [id number] [place] [address] Credit Counselor: Rosendo Bose M.D. Ph.D.; CLIA# [id number] Itraconazole [Mass/Vol] 6.0 mcg/mL [facility] Comment on above: REFERENCE VALUE >0.5 (localized infection), >1.0 (systemic infection) [facility] MAGNESIUMon 01-23-2024 Interpretation and review of laboratory results Normal [facility] Magnesium [Mass/Vol] 1.8 mg/dL 1.6 - 2 .6 mg/dL [facility] Magnesium [Mass/Vol] 1.8 mg/dL Normal 1.6-2.6 [facility] Comment on above: Performed By: #### M GO, CHM7, HFP ####[facility] (DEFAULT)[address] [place] [address] No Panel Informationon 01-23 Interpretation and review of laboratory results Abnormal [facility] TACROLIMUS LEVEL, TROUGH ([place] E DRUG LEVEL)on 01-23-2024 Interpretation and review of laboratory results Normal [facility] Tacrolimus (Bld) [Mass/Vol] 7.0 ng/mL Bone Marrow Transplant: 4.0-12.0, Therapeutic: 5.0-15.0 [facility] Method performed is a chemiluminescent microparticle immunoasssay on the [employer] i2000. The range is based on experience at [facility] and users should be aware that target concentrations vary widely depending on concomitant therapy, time post-transplant, and desired degree of immunosuppression. [facility] Tacrolimus, Trough 7.0 ng/mL Normal Bone Susana ow Transplant: 4.0-12.0, Therapeutic: 5.0-15.0 [facility] Comment on above: Order Comment: Pleas e draw at specified interval PRIOR to dose. Do not hold dose to wait for level. Specimens batched twice per day, (M-F) and once per day weekendsMethod performed is a chemiluminescent microparticle immunoasssay on the [employer] i2000.The range is based on experience at [facility] and users should be aware that target concentrations vary widely depending on concomitant therapy, time post-transplant, and desired degree of immunosuppression. Performed By: #### T ACRO ####[facility] (DEFAULT)[address] [place] [address] CARDIAC RHYTHM (SCANNED)on 0 01-22-2024 [facility] CBC,PLATELETSon 01-22-2024 Erythrocyte distribution width (RBC) [Ratio] 14.1 % 10.9 - 14.3 % [facility] Hematocrit (Bld) [Volume fraction] 41.5 % 39.6 - 48.8 % [facility] Hemoglobin (Bld) [Mass/Vol] 13.3 g/dL Low 13.4 - 16.8 g/dL [facility] Interpretation and review of laboratory results Abnormal [facility] MCH (RBC) [Entitic mass] 27.8 pg 26.1 - 33.3 pg [facility] MCHC (RBC) [Mass/Vol] 32.0 g/dL 31.9 - 36.5 g/dL [facility] MCV (RBC) [Entitic vol] 86.8 fL 79.0 - 94.5 fL [facility] Platelet mean volume (Bld) [Entitic vol] 10.5 fL 8.7 - 12.3 fL [facility] Platelets (Bld) [#/Vol] 186 10*3/uL 146 - 337 K/uL [facility] RBC (Bld) [#/Vol] 4.78 10*6/uL [facility] WBC (Bld) [#/Vol] 3.74 10*3/uL 3.73 - 10. 10 K/uL [facility] Hematocrit (Bld) [Volume fraction] 41.5 % Normal 39.6-48.8 [facility] Comment on above: Performed By: #### H [facility] ####[facility] (DEFAULT)[address] [place] [address] Hemoglobin (Bld) [Mass/Vol] 13.3 g/dL Low 13.4-16.8 [facility] Comment on above: Performed By: #### H [facility] ####[facility] (DEFAULT)[address] [place] [address] MCV (RBC) [Entitic vol] 86.8 fL Normal 79.0-94.5 [facility] Comment on above: Performed By: #### H [facility] ####[facility] (DEFAULT)[address] [place] [address] Mean Cell Hgb 27.8 pg Normal 26.1-33.3 [facility] Comment on above: Performed By: #### H [facility] ####[facility] (DEFAULT)[address] [place] [address] Mean Cell Hgb Conc 32.0 g/dL Normal 31.9-36.5 [facility] Comment on above: Performed By: #### H EMOGC ####[facility] (DEFAULT)[address] [facility] [place] [address] Platelet mean volume (Bld) [Entitic vol] 10.5 fL Normal 8.7-12.3 [facility] Comment on above: Performed By: #### H EMOGC ####[facility] (DEFAULT)[address] [facility] [place] [address] Platelets (Bld) [#/Vol] 186 10*3/uL Normal 146-337 [facility] Comment on above: Performed By: #### H EMOGC ####[facility] (DEFAULT)[address] [facility] [place] [address] RBC (Bld) [#/Vol] 4.78 10*6/uL Normal 4.38-5.83 [facility] Comment on above: Performed By: #### H EMO ####[facility] (DEFAULT)[address] [facility] [place] [address] RBC Distribution 14.1 % Normal 10.9-14.3 [facility] Comment on above: Performed By: #### H EMOGC ####[facility] (DEFAULT)[address] [place] [place] [address] WBC (Bld) [#/Vol] 3.74 10*3/uL Normal 3.73-10.10 [facility] Comment on above: Performed By: #### H EMOGC ####[facility] (DEFAULT)[address] [place] [address] CHEM 7 (LYTES,BUN,CREA,GLUC) on 01-22-2024 Anion gap [Moles/Vol] 13 mmol/L 7 - 17 mmol/L [facility] Chloride [Moles/Vol] 109 mmol/L High 98 - 10 8 mmol/L [facility] CO2 [Moles/Vol] 23 mmol/L 21 - 31 mmol/L [facility] Creatinine [Mass/Vol] 1.10 mg/dL 0.70 - 1.30 mg/dL [facility] eGFR, CKD-EPI, Male 81 - PINF [facility] Comment on above: Reported eGFR is bas ed on the CKD-EPI 2020 equation using creatinine, age, and sex. Glucose [Mass/Vol] 84 mg/dL 70 - 99 mg/dL [facility] Interpretation and review of laboratory results Abnormal [facility] Osmolality Calc [Osmolality] 295 [facility] Potassium [Moles/Vol] 4.0 mmol/L 3.5 - 5.0 mmol/L [facility] Sodium [Moles/Vol] 141 mmol/L 135 - 145 mmol/L [facility] Urea nitrogen [Mass/Vol] 16 mg/dL 7 - 25 mg/dL [facility] Urea nitrogen/Creatinine [Mass ratio] 15 mg/mg [facility] Anion gap [Moles/Vol] 13 mmol/L Normal 7-17 [facility] Comment on above: Performed By: #### NATHANIEL RAMÍREZ ####[facility] (DEFAULT)[address] [place] [address] Chloride [Moles/Vol] 109 mmol/L High 98-108 [facility] Comment on above: Performed By: #### NATHANIEL RAMÍREZ ####[facility] (DEFAULT)[address] [place] [address] CO2 [Moles/Vol] 23 mmol/L Normal 21-31 [facility] Comment on above: Performed By: #### NATHANIEL RAMÍREZ ####[facility] (DEFAULT)[address] [place] [address] Creatinine [Mass/Vol] 1.10 mg/dL Normal 0.70-1.30 [facility] Comment on above: Performed By: #### Rod BLOOM CHM7 ####[facility] (DEFAULT)[address] [place] [address] GFR/1.73 sq M.predicted among non-blacks MDRD (S/P/Bld) [Vol rate/Area] 81 mL/min/{1.73_m2} Normal >=60 [facility] Comment on above: Result Comment: Repo rted eGFR is based on the CKD-EPI 2020 equation using creatinine, age, and sex. Performed By: #### TJ RAMÍREZ7 ####[facility] (DEFAULT)[address] [facility] [place] [address] Glucose [Mass/Vol] 84 mg/dL Normal 70-99 [facility] Comment on above: Performed By: #### TJ RAMÍREZ7 ####[facility] (DEFAULT)[address] [facility] [place] [address] Osmolality [Osmolality] 295 mosm/kg Normal 278-305 [facility] Comment on above: Performed By: #### Rod BLOOM CHM7 ####[facility] (DEFAULT)[address] [place] [address] Potassium [Moles/Vol] 4.0 mmol/L Normal 3.5-5.0 [facility] Comment on above: Performed By: #### Rod BLOOM CHM7 ####[facility] (DEFAULT)[address] [place] [address] Sodium [Moles/Vol] 141 mmol/L Normal 135-145 [facility] Comment on above: Performed By: #### Rod BLOOM CHM7 ####[facility] (DEFAULT)[address] [place] [address] Urea nitrogen [Mass/Vol] 16 mg/dL Normal 7-25 [facility] Comment on above: Performed By: #### Rod BLOOM CHM7 ####[facility] (DEFAULT)[address] [place] [address] Urea nitrogen/Creatinine [Mass ratio] 15 mg/mg Normal [facility] Comment on above: Performed By: #### TJ RAMÍREZ7 ####[facility] (DEFAULT)[address] [place] [address] MAGNESIUMon 01-22-2024 Interpretation and review of laboratory results [facility] Magnesium [Mass/Vol] 2.0 mg/dL 1.6 - 2 .6 mg/dL [facility] Magnesium [Mass/Vol] 2.0 mg/dL Normal 1.6-2.6 [facility] Comment on above: Performed By: #### NATHANIEL RAMÍREZ ####[facility] (DEFAULT)[address] [place] [address] No Panel Informationon 01-22 [facility] PT,INR,PTTon 01-22-2024 aPTT Coag (PPP) [Time] 29.2 s [facility] INR Coag (Bld) [Relative time] 1.1 {INR} 0.9 - 1.1 [facility] Interpretation and review of laboratory results Abnormal [facility] PT Coag (PPP) [Time] 14.3 s High [facility] aPTT Coag (Bld) [Time] 29.2 s Normal 24.0-34.3 [facility] Comment on above: Performed By: #### P TPTT ####[facility] (DEFAULT)[address] [place] [address] INR Coag (PPP) [Relative time] 1.1 {INR} Normal 0.9-1.1 [facility] Comment on above: Performed By: #### P TPTT ####[facility] (DEFAULT)[address] [place] [address] PT Coag (PPP) [Time] 14.3 s High 11.9-14.2 [facility] Comment on above: Performed By: #### P TPTT ####[facility] (DEFAULT)[address] [place] [address] TACROLIMUS LEVEL, TROUGH (AZ E DRUG LEVEL)Ordered By: Sheree Jensen on 01-22-2024 Interpretation and review of laboratory results Normal [facility] Tacrolimus (Bld) [Mass/Vol] 7.9 ng/mL Bone Marrow Transplant: 4.0-12.0, Therapeutic: 5.0-15.0 [facility] Method performed is a chemiluminescent microparticle immunoasssay on the [employer] i2000. The range is based on experience at [facility] and users should be aware that target concentrations vary widely depending on concomitant therapy, time post-transplant, and desired degree of immunosuppression. [facility] TACROLIMUS LEVEL, TROUGH (AZ E DRUG LEVEL)on 01-22-2024 Tacrolimus, Trough 7.9 ng/mL Normal Bone Susana ow Transplant: 4.0-12.0, Therapeutic: 5.0-15.0 [facility] Comment on above: Order Comment: Pleas e draw at specified interval PRIOR to dose. Do not hold dose to wait for level. Specimens batched twice per day, (M-F) and once per day weekendsMethod performed is a chemiluminescent microparticle immunoasssay on the [employer] i2000.The range is based on experience at [facility] and users should be aware that target concentrations vary widely depending on concomitant therapy, time post-transplant, and desired degree of immunosuppression. Performed By: #### T ACRO ####[facility] (DEFAULT)[address] [place] [address] TYPE AND SCREENon 01-22-2024 ABO/RH(D) TYPE Positive [facility] ABO/RH(D) TYPE Positive Normal [facility] Comment on above: Performed By: #### X M ####[facility] (DEFAULT)[address] [place] [address] [place] Unspecified body regionOr dered By: Unassigned Pacs on 01-22-2024 [facility] Work Phone: Unspecified body regionon 01-22-2024 Radiology Study observation (narrative) [facility] CBC,PLATELETSon 01-21-2024 Erythrocyte distribution width (RBC) [Ratio] 14.0 % 10.9 - 14.3 % [facility] Hematocrit (Bld) [Volume fraction] 39.4 % Low 39.6 - 48.8 % [facility] Hemoglobin (Bld) [Mass/Vol] 12.7 g/dL Low 13.4 - 16.8 g/dL [facility] Interpretation and review of laboratory results Abnormal [facility] MCH (RBC) [Entitic mass] 28.0 pg 26.1 - 33.3 pg [facility] MCHC (RBC) [Mass/Vol] 32.2 g/dL 31.9 - 36.5 g/dL [facility] MCV (RBC) [Entitic vol] 87.0 fL 79.0 - 94.5 fL [facility] Platelet mean volume (Bld) [Entitic vol] 10.2 fL 8.7 - 12.3 fL [facility] Platelets (Bld) [#/Vol] 157 10*3/uL 146 - 337 K/uL [facility] RBC (Bld) [#/Vol] 4.53 10*6/uL [facility] WBC (Bld) [#/Vol] 3.42 10*3/uL Low 3.73 - 10. 10 K/uL [facility] Hematocrit (Bld) [Volume fraction] 39.4 % Low 39.6-48.8 [facility] Comment on above: Performed By: #### H [facility] ####[facility] (DEFAULT)[address] [address] Hemoglobin (Bld) [Mass/Vol] 12.7 g/dL Low 13.4-16.8 [facility] Comment on above: Performed By: #### H [facility] ####[facility] (DEFAULT)[address] [facility] [place] [address] MCV (RBC) [Entitic vol] 87.0 fL Normal 79.0-94.5 [facility] Comment on above: Performed By: #### H EMOGC ####[facility] (DEFAULT)[address] [place] [address] Mean Cell Hgb 28.0 pg Normal 26.1-33.3 [facility] Comment on above: Performed By: #### H EMOGC ####[facility] (DEFAULT)[address] [place] [place] [address] Mean Cell Hgb Conc 32.2 g/dL Normal 31.9-36.5 [facility] Comment on above: Performed By: #### H EMO ####[facility] (DEFAULT)[address] [facility] [place] [address] Platelet mean volume (Bld) [Entitic vol] 10.2 fL Normal 8.7-12.3 [facility] Comment on above: Performed By: #### H EMOGC ####[facility] (DEFAULT)[address] [place] [address], [place] [address] Platelets (Bld) [#/Vol] 157 10*3/uL Normal 146-337 [facility] Comment on above: Performed By: #### H EMOGC ####[facility] (DEFAULT)[address] [facility] [place] [address] RBC (Bld) [#/Vol] 4.53 10*6/uL Normal 4.38-5.83 [facility] Comment on above: Performed By: #### H EMOGC ####[facility] (DEFAULT)[address] [facility] [place] [address] RBC Distribution 14.0 % Normal 10.9-14.3 [facility] Comment on above: Performed By: #### H EMOGC ####[facility] (DEFAULT)[address] [facility] [place] [address] WBC (Bld) [#/Vol] 3.42 10*3/uL Low 3.73-10.10 [facility] Comment on above: Performed By: #### H [facility] ####[facility] (DEFAULT)[address] [place] [address] CHEM 7 (LYTES,BUN,CREA,GLUC) on 01-21-2024 Anion gap [Moles/Vol] 12 mmol/L 7 - 17 mmol/L [facility] Chloride [Moles/Vol] 107 mmol/L 98 - 10 8 mmol/L [facility] CO2 [Moles/Vol] 26 mmol/L 21 - 31 mmol/L [facility] Creatinine [Mass/Vol] 1.11 mg/dL 0.70 - 1.30 mg/dL [facility] eGFR, CKD-EPI, Male 80 - PINF [facility] Comment on above: Reported eGFR is bas ed on the CKD-EPI 2020 equation using creatinine, age, and sex. Glucose [Mass/Vol] 93 mg/dL 70 - 99 mg/dL [facility] Osmolality Calc [Osmolality] 295 [facility] Potassium [Moles/Vol] 3.9 mmol/L 3.5 - 5.0 mmol/L [facility] Sodium [Moles/Vol] 141 mmol/L 135 - 145 mmol/L [facility] Urea nitrogen [Mass/Vol] 15 mg/dL 7 - 25 mg/dL [facility] Urea nitrogen/Creatinine [Mass ratio] 14 mg/mg [facility] Anion gap [Moles/Vol] 12 mmol/L Normal 7-17 [facility] Comment on above: Performed By: #### NATHANIEL RAMÍREZ ####[facility] (DEFAULT)[address] [place] [address] Chloride [Moles/Vol] 107 mmol/L Normal 98-108 [facility] Comment on above: Performed By: #### NATHANIEL RAMÍREZ ####[facility] (DEFAULT)[address] [place] [address] CO2 [Moles/Vol] 26 mmol/L Normal 21-31 [facility] Comment on above: Performed By: #### TJ RAMÍREZ7 ####[facility] (DEFAULT)[address] [place] [address] Creatinine [Mass/Vol] 1.11 mg/dL Normal 0.70-1.30 [facility] Comment on above: Performed By: #### TJ RAMÍREZ7 ####[facility] (DEFAULT)[address] [place] [place] [address] GFR/1.73 sq M.predicted among non-blacks MDRD (S/P/Bld) [Vol rate/Area] 80 mL/min/{1.73_m2} Normal >=60 [facility] Comment on above: Result Comment: Repo rted eGFR is based on the CKD-EPI 2020 equation using creatinine, age, and sex. Performed By: #### TJ RAMÍREZ7 ####[facility] (DEFAULT)[address] [facility] [place] [address] Glucose [Mass/Vol] 93 mg/dL Normal 70-99 [facility] Comment on above: Performed By: #### TJ RAMÍREZ7 ####[facility] (DEFAULT)[address] [facility] [place] [address] Osmolality [Osmolality] 295 mosm/kg Normal 278-305 [facility] Comment on above: Performed By: #### TJ RAMÍREZ7 ####[facility] (DEFAULT)[address] [facility] [place] [address] Potassium [Moles/Vol] 3.9 mmol/L Normal 3.5-5.0 [facility] Comment on above: Performed By: #### TJ RAMÍREZ7 ####[facility] (DEFAULT)[address] [facility] [place] [address] Sodium [Moles/Vol] 141 mmol/L Normal 135-145 [facility] Comment on above: Performed By: #### M MERLE, CHM7 ####[facility] (DEFAULT)[address] [place] [address] Urea nitrogen [Mass/Vol] 15 mg/dL Normal - [facility] Comment on above: Performed By: #### M MERLE, CHM7 ####[facility] (DEFAULT)[address] [place] [address] Urea nitrogen/Creatinine [Mass ratio] 14 mg/mg Normal [facility] Comment on above: Performed By: #### M MERLE, CHM7 ####[facility] (DEFAULT)[address] [place] [address] Cardiac catheterization stud yOrdered By: Kelvin Donohue on 01-21-2024 Body surface area Derived from formula 2.08 m2 [facility] Work Phone: [facility] Work Phone: Cardiac catheterization stud yon [...] with fistula occlusion Kelvin Donohue MD, MPH [place] Former [employer] Medicine. Section of Advanced Heart Failure and Transplantation Division of Cardiovascular Diseases [facility] [email or web address] INVASIVE CARDIOVASCULAR PROC EDUREon 01-21-2024 INVASIVE CARDIOVASCULAR PROCEDURE Normal [facility] MAGNESIUMon 01-21-2024 Interpretation and review of laboratory results Abnormal [facility] Magnesium [Mass/Vol] 1.5 mg/dL Low 1.6 - 2 .6 mg/dL [facility] Magnesium [Mass/Vol] 1.5 mg/dL Low 1.6-2.6 [facility] Comment on above: Performed By: #### M MERLE CHM7 ####[facility] (DEFAULT)[address] [place] [address] No Panel Informationon 01-21 [facility] TACROLIMUS LEVEL, TROUGH (AZ E DRUG LEVEL)on 01-21-2024 Interpretation and review of laboratory results Normal [facility] Tacrolimus (Bld) [Mass/Vol] 7.2 ng/mL Bone Marrow Transplant: 4.0-12.0, Therapeutic: 5.0-15.0 [facility] Method performed is a chemiluminescent microparticle immunoasssay on the [employer] i2000. The range is based on experience at [facility] and users should be aware that target concentrations vary widely depending on concomitant therapy, time post-transplant, and desired degree of immunosuppression. [facility] Tacrolimus, Trough 7.2 ng/mL Normal Bone Susana ow Transplant: 4.0-12.0, Therapeutic: 5.0-15.0 [facility] Comment on above: Order Comment: Pleas e draw at specified interval PRIOR to dose. Do not hold dose to wait for level. Specimens batched twice per day, (M-F) and once per day weekendsMethod performed is a chemiluminescent microparticle immunoasssay on the [employer] i2000.The range is based on experience at [facility] and users should be aware that target concentrations vary widely depending on concomitant therapy, time post-transplant, and desired degree of immunosuppression. Performed By: #### T ACRO ####[facility] (DEFAULT)[address] [place] [address] CBC,PLATELETSon 01-20-2024 Erythrocyte distribution width (RBC) [Ratio] 13.8 % 10.9 - 14.3 % [facility] Hematocrit (Bld) [Volume fraction] 38.9 % Low 39.6 - 48.8 % [facility] Hemoglobin (Bld) [Mass/Vol] 12.5 g/dL Low 13.4 - 16.8 g/dL [facility] Interpretation and review of laboratory results Abnormal [facility] MCH (RBC) [Entitic mass] 28.0 pg 26.1 - 33.3 pg [facility] MCHC (RBC) [Mass/Vol] 32.1 g/dL 31.9 - 36.5 g/dL [facility] MCV (RBC) [Entitic vol] 87.2 fL 79.0 - 94.5 fL [facility] Platelet mean volume (Bld) [Entitic vol] 10.2 fL 8.7 - 12.3 fL [facility] Platelets (Bld) [#/Vol] 166 10*3/uL 146 - 337 K/uL [facility] RBC (Bld) [#/Vol] 4.46 10*6/uL [facility] WBC (Bld) [#/Vol] 3.79 10*3/uL 3.73 - 10. 10 K/uL [facility] Hematocrit (Bld) [Volume fraction] 38.9 % Low 39.6-48.8 [facility] Comment on above: Performed By: #### H [facility] ####[facility] (DEFAULT)[address] [place] [address] Hemoglobin (Bld) [Mass/Vol] 12.5 g/dL Low 13.4-16.8 [facility] Comment on above: Performed By: #### H [facility] ####[facility] (DEFAULT)[address] [place] [address] MCV (RBC) [Entitic vol] 87.2 fL Normal 79.0-94.5 [facility] Comment on above: Performed By: #### H EMOGC ####[facility] (DEFAULT)[address] [place] [address] Mean Cell Hgb 28.0 pg Normal 26.1-33.3 [facility] Comment on above: Performed By: #### H EMOGC ####[facility] (DEFAULT)[address] [place] [address] Mean Cell Hgb Conc 32.1 g/dL Normal 31.9-36.5 [facility] Comment on above: Performed By: #### H EMOGC ####[facility] (DEFAULT)[address] [place] [address] Platelet mean volume (Bld) [Entitic vol] 10.2 fL Normal 8.7-12.3 [facility] Comment on above: Performed By: #### H EMOGC ####[facility] (DEFAULT)[address] [place] [address] Platelets (Bld) [#/Vol] 166 10*3/uL Normal 146-337 [facility] Comment on above: Performed By: #### H EMOGC ####[facility] (DEFAULT)[address] [place] [address] RBC (Bld) [#/Vol] 4.46 10*6/uL Normal 4.38-5.83 [facility] Comment on above: Performed By: #### H EMOGC ####[facility] (DEFAULT)[address] [place] [address] RBC Distribution 13.8 % Normal 10.9-14.3 [facility] Comment on above: Performed By: #### H EMOGC ####[facility] (DEFAULT)[address] [place] [address] WBC (Bld) [#/Vol] 3.79 10*3/uL Normal 3.73-10.10 [facility] Comment on above: Performed By: #### H [facility] ####[facility] (DEFAULT)[address] [place] [address] CHEM 7 (LYTES,BUN,CREA,GLUC) on 01-20-2024 Anion gap [Moles/Vol] 12 mmol/L 7 - 17 mmol/L [facility] Chloride [Moles/Vol] 105 mmol/L 98 - 10 8 mmol/L [facility] CO2 [Moles/Vol] 28 mmol/L 21 - 31 mmol/L [facility] Creatinine [Mass/Vol] 1.12 mg/dL 0.70 - 1.30 mg/dL [facility] eGFR, CKD-EPI, Male 79 - PINF [facility] Comment on above: Reported eGFR is bas ed on the CKD-EPI 2020 equation using creatinine, age, and sex. Glucose [Mass/Vol] 88 mg/dL 70 - 99 mg/dL [facility] Osmolality Calc [Osmolality] 294 [facility] Potassium [Moles/Vol] 3.8 mmol/L 3.5 - 5.0 mmol/L [facility] Sodium [Moles/Vol] 141 mmol/L 135 - 145 mmol/L [facility] Urea nitrogen [Mass/Vol] 15 mg/dL 7 - 25 mg/dL [facility] Urea nitrogen/Creatinine [Mass ratio] 13 mg/mg [facility] Anion gap [Moles/Vol] 12 mmol/L Normal 7-17 [facility] [facility] Comment on above: Performed By: #### M NATHANIEL BLOOM, HFP ####[facility] (DEFAULT)[address] [place] [address] Chloride [Moles/Vol] 105 mmol/L Normal 98-108 [facility] Comment on above: Performed By: #### NATHANIEL RAMÍREZ, HFP ####[facility] (DEFAULT)[address] [place] [address] CO2 [Moles/Vol] 28 mmol/L Normal 21-31 [facility] Comment on above: Performed By: #### NATHANIEL RAMÍREZ, HFP ####[facility] (DEFAULT)[address] [facility] [place] [address] Creatinine [Mass/Vol] 1.12 mg/dL Normal 0.70-1.30 [facility] Comment on above: Performed By: #### NATHANIEL RAMÍREZ, HFP ####[facility] (DEFAULT)[address] [facility] [place] [address] GFR/1.73 sq M.predicted among non-blacks MDRD (S/P/Bld) [Vol rate/Area] 79 mL/min/{1.73_m2} Normal >=60 [facility] Comment on above: Result Comment: Repo rted eGFR is based on the CKD-EPI 2020 equation using creatinine, age, and sex. Performed By: #### NATHANIEL RAMÍREZ, HFP ####[facility] (DEFAULT)[address] [facility] [place] [address] Glucose [Mass/Vol] 88 mg/dL Normal 70-99 [facility] Comment on above: Performed By: #### NATHANIEL RAMÍREZ, HFP ####[facility] (DEFAULT)[address] [facility] [place] [address] Osmolality [Osmolality] 294 mosm/kg Normal 278-305 [facility] Comment on above: Performed By: #### NATHANIEL RAMÍREZ, HFP ####[facility] (DEFAULT)[address] [facility] [place] [address] Potassium [Moles/Vol] 3.8 mmol/L Normal 3.5-5.0 [facility] Comment on above: Performed By: #### NATHANIEL RAMÍREZ, HFP ####[facility] (DEFAULT)[address] [facility] [place] [address] Sodium [Moles/Vol] 141 mmol/L Normal 135-145 [facility] Comment on above: Performed By: #### NATHANIEL RAMÍREZ, HFP ####[facility] (DEFAULT)[address] [facility] [place] [address] Urea nitrogen [Mass/Vol] 15 mg/dL Normal 7-25 [facility] Comment on above: Performed By: #### M TJ BLOOM7, HFP ####[facility] (DEFAULT)[address] [facility] [place] [address] Urea nitrogen/Creatinine [Mass ratio] 13 mg/mg Normal [facility] Comment on above: Performed By: #### M TJ BLOOM7, HFP ####[facility] (DEFAULT)[address] [facility] [place] [address] Cardiac catheterization stud yon 01-20-2024 [facility] Radiology Study observation (narrative) [facility] Radiology Study observation (narrative) [facility] EBV BY PCR, QUANTITATIVE,BLO ODOrdered By: Charlotte Jensen on 01-20-2024 EBV DNA ESTELITA+probe (Unsp spec) [#/Vol] NINF [facility] Interpretation and review of laboratory results Normal [facility] This test was perfor med using a real time PCR assay. The dynamic range for this assay is 1000-5,000,000 IU/mL. A result <1000 IU/mL does not rule out the presence of EBV DNA in quantities below the sensitivity of this assay. This test was developed and its performance characteristics determined by [facility] at [facility]. It has not been cleared or approved by the FDA. The laboratory is regulated under CLIA as qualified to perform high-complexity testing. This test is used for clinical purposes. It should not be regarded as investigational or for research. [facility] HEPATIC FUNCTION PANELon Albumin [Mass/Vol] 3.7 g/dL 3.5 - 5.0 g/dL [facility] ALP [Catalytic activity/Vol] 73 U/L 32 - 126 U/L [facility] ALT [Catalytic activity/Vol] 12 U/L 10 - 52 U/L [facility] AST [Catalytic activity/Vol] 19 U/L 10 - 39 U/L [facility] Bilirubin [Mass/Vol] 2.1 mg/dL High NINF - 1.5 mg/dL [facility] Bilirubin.direct [Mass/Vol] 0.5 mg/dL High NINF - 0.3 mg/dL [facility] Interpretation and review of laboratory results Abnormal [facility] Protein [Mass/Vol] 6.1 g/dL Low 6.4 - 8.3 g/dL [facility] Albumin [Mass/Vol] 3.7 g/dL Normal 3.5-5.0 [facility] Comment on above: Performed By: #### NATHANIEL RAMÍREZ, HFP ####[facility] (DEFAULT)[address] [place] [address] ALP [Catalytic activity/Vol] 73 U/L Normal 32-126 [facility] Comment on above: Performed By: #### NATHANIEL RAMÍREZ, HFP ####[facility] (DEFAULT)[address] [place] [address] ALT [Catalytic activity/Vol] 12 U/L Normal 10-52 [facility] Comment on above: Performed By: #### NATHANIEL RAMÍREZ, HFP ####[facility] (DEFAULT)[address] [place] [address] AST [Catalytic activity/Vol] 19 U/L Normal 10-39 [facility] Comment on above: Performed By: #### NATHANIEL RAMÍREZ, HFP ####[facility] (DEFAULT)[address] [place] [address] Bilirubin [Mass/Vol] 2.1 mg/dL High <1.5 [facility] Comment on above: Performed By: #### Rod BLOOM CHM7, HFP ####[facility] (DEFAULT)[address] [place] [address] Bilirubin.indirect [Mass/Vol] 0.5 mg/dL High <0.3 [facility] Comment on above: Performed By: #### M NATHANIEL BLOOM, HFP ####[facility] (DEFAULT)[address] [place] [address], [place] [address] Protein [Mass/Vol] 6.1 g/dL Low 6.4-8.3 [facility] Comment on above: Performed By: #### M NATHANIEL BLOOM, HFP ####[facility] (DEFAULT)[address] [place] [address] ITRACONAZOLE LEVELon 024 Hydroxyitraconazole 7.6 mcg/mL Normal [facility] Comment on above: Order Comment: Pleas e draw level at specified interval PRIOR to dose. Result Comment: ---- REFERENCE VALUE No therapeutic range established; activity and serumconcentration are similar to parent drug. ADDITIONAL INFORMATION This test was developed and its performance characteristicsdetermined by [facility] in a manner consistent with CLIArequirements. This test has not been cleared or approved bythe U.S. Food and Drug Administration.Test Performed by:[place] [id number] Director: Rosendo Bose M.D. Ph.D.; CLIA# [id number] Performed By: #### Y ITCON ####[facility] (DEFAULT)[address] [place] [address], [place] [address] Itraconazole 6.0 mcg/mL Normal [facility] Comment on above: Order Comment: Pleas e draw level at specified interval PRIOR to dose. Result Comment: ---- REFERENCE VALUE-------------------------->0.5 (localized infection), >1.0 (systemic infection) Performed By: #### Y ITCON ####[facility] (DEFAULT)[address] [place] [address] MAGNESIUMon 01-20-2024 Interpretation and review of laboratory results Normal [facility] Magnesium [Mass/Vol] 1.6 mg/dL 1.6 - 2 .6 mg/dL [facility] Magnesium [Mass/Vol] 1.6 mg/dL Normal 1.6-2.6 [facility] Comment on above: Performed By: #### M GO, CHM7, HFP ####[facility] (DEFAULT)[address] [place] [address] No Panel Informationon 01-20 [facility] POCT CO-OXIMETRYon Hemoglobin (Bld) [Mass/Vol] 12.8 g/dL Low 13.4 - 16.8 g/dL [facility] Interpretation and review of laboratory results Abnormal [facility] Oxyhemoglobin 69 % Low 94 - 98 % [facility] Ordering physician notified. Test performed at address of the patient encounter. [facility] Hemoglobin (Bld) [Mass/Vol] 13.3 g/dL Low 13.4 - 16.8 g/dL [facility] Interpretation and review of laboratory results Abnormal [facility] Oxyhemoglobin 69 % Low 94 - 98 % [facility] Ordering physician notified. Test performed at address of the patient encounter. [facility] PT,INR,PTTon 01-20-2024 aPTT Coag (PPP) [Time] 30.6 s [facility] INR Coag (Bld) [Relative time] 1.2 {INR} High 0.9 - 1.1 [facility] Interpretation and review of laboratory results Abnormal [facility] PT Coag (PPP) [Time] 15.5 s High [facility] aPTT Coag (Bld) [Time] 30.6 s Normal 24.0-34.3 [facility] Comment on above: Performed By: #### P TPTT ####[facility] (DEFAULT)[address] [facility] [place] [address] INR Coag (PPP) [Relative time] 1.2 {INR} High 0.9-1.1 [facility] Comment on above: Performed By: #### P TPTT ####[facility] (DEFAULT)[address] [place] [address] PT Coag (PPP) [Time] 15.5 s High 11.9-14.2 [facility] Comment on above: Performed By: #### P TPTT ####[facility] (DEFAULT)[address] [facility] [place] [address] TACROLIMUS LEVEL, TROUGH (AZ E DRUG LEVEL)Ordered By: Yanira Marcum on 01-20-2024 Interpretation and review of laboratory results Normal [facility] Tacrolimus (Bld) [Mass/Vol] 7.7 ng/mL Bone Marrow Transplant: 4.0-12.0, Therapeutic: 5.0-15.0 [facility] Method performed is a chemiluminescent microparticle immunoasssay on the [employer] i2000. The range is based on experience at [facility] and users should be aware that target concentrations vary widely depending on concomitant therapy, time post-transplant, and desired degree of immunosuppression. [facility] TACROLIMUS LEVEL, TROUGH (AZ E DRUG LEVEL)on 01-20-2024 Tacrolimus, Trough 7.7 ng/mL Normal Bone Susana ow Transplant: 4.0-12.0, Therapeutic: 5.0-15.0 [facility] Comment on above: Order Comment: Pleas e draw at specified interval PRIOR to dose. Do not hold dose to wait for level. Specimens batched twice per day, (M-F) and once per day weekendsMethod performed is a chemiluminescent microparticle immunoasssay on the [employer] i2000.The range is based on experience at [facility] and users should be aware that target concentrations vary widely depending on concomitant therapy, time post-transplant, and desired degree of immunosuppression. Performed By: #### T ACRO ####[facility] (DEFAULT)[address] [place] [address] CBC,PLATELETSon 01-19-2024 Erythrocyte distribution width (RBC) [Ratio] 13.9 % 10.9 - 14.3 % [facility] Hematocrit (Bld) [Volume fraction] 37.5 % Low 39.6 - 48.8 % [facility] Hemoglobin (Bld) [Mass/Vol] 12.1 g/dL Low 13.4 - 16.8 g/dL [facility] Interpretation and review of laboratory results Abnormal [facility] MCH (RBC) [Entitic mass] 28.3 pg 26.1 - 33.3 pg [facility] MCHC (RBC) [Mass/Vol] 32.3 g/dL 31.9 - 36.5 g/dL [facility] MCV (RBC) [Entitic vol] 87.8 fL 79.0 - 94.5 fL [facility] Platelet mean volume (Bld) [Entitic vol] 10.4 fL 8.7 - 12.3 fL [facility] Platelets (Bld) [#/Vol] 163 10*3/uL 146 - 337 K/uL [facility] RBC (Bld) [#/Vol] 4.27 10*6/uL Low [facility] WBC (Bld) [#/Vol] 3.69 10*3/uL Low 3.73 - 10. 10 K/uL [facility] Hematocrit (Bld) [Volume fraction] 37.5 % Low 39.6-48.8 [facility] Comment on above: Performed By: #### H [facility] ####[facility] (DEFAULT)[address] [place] [address] Hemoglobin (Bld) [Mass/Vol] 12.1 g/dL Low 13.4-16.8 [facility] Comment on above: Performed By: #### H [facility] ####[facility] (DEFAULT)[address] [facility] [place] [address] MCV (RBC) [Entitic vol] 87.8 fL Normal 79.0-94.5 [facility] Comment on above: Performed By: #### H EMOGC ####[facility] (DEFAULT)[address] [facility] [place] [address] Mean Cell Hgb 28.3 pg Normal 26.1-33.3 [facility] Comment on above: Performed By: #### H EMOGC ####[facility] (DEFAULT)[address] [facility] [place] [address] Mean Cell Hgb Conc 32.3 g/dL Normal 31.9-36.5 [facility] Comment on above: Performed By: #### H EMOGC ####[facility] (DEFAULT)[address] [facility] [place] [address] Platelet mean volume (Bld) [Entitic vol] 10.4 fL Normal 8.7-12.3 [facility] Comment on above: Performed By: #### H EMOGC ####[facility] (DEFAULT)[address] [facility] [place] [address] Platelets (Bld) [#/Vol] 163 10*3/uL Normal 146-337 [facility] Comment on above: Performed By: #### H EMOGC ####[facility] (DEFAULT)[address] [facility] [place] [address] RBC (Bld) [#/Vol] 4.27 10*6/uL Low 4.38-5.83 [facility] Comment on above: Performed By: #### H EMOGC ####[facility] (DEFAULT)[address] [facility] [place] [address] RBC Distribution 13.9 % Normal 10.9-14.3 [facility] Comment on above: Performed By: #### H EMOGC ####[facility] (DEFAULT)[address] [place] [address] WBC (Bld) [#/Vol] 3.69 10*3/uL Low 3.73-10.10 [facility] Comment on above: Performed By: #### H [facility] ####[facility] (DEFAULT)[address] [place] [address] CHEM 7 (LYTES,BUN,CREA,GLUC) on 01-19-2024 Anion gap [Moles/Vol] 14 mmol/L 7 - 17 [facility]/L [facility] Chlor[facility] [Moles/Vol] 106 mmol/L 98 - 10 8 mmol/L [facility] CO2 [Moles/Vol] 24 mmol/L 21 - 31 mmol/L [facility] Creatinine [Mass/Vol] 1.13 mg/dL 0.70 - 1.30 mg/dL [facility] eGFR, CKD-EPI, Male 79 - PINF [facility] Comment on above: Reported eGFR is bas ed on the CKD-EPI 2020 equation using creatinine, age, and sex. Glucose [Mass/Vol] 86 mg/dL 70 - 99 mg/dL [facility] Osmolality Calc [Osmolality] 293 [facility] Potassium [Moles/Vol] 3.8 mmol/L 3.5 - 5.0 mmol/L [facility] Sodium [Moles/Vol] 140 mmol/L 135 - 145 mmol/L [facility] Urea nitrogen [Mass/Vol] 16 mg/dL 7 - 25 mg/dL [facility] Urea nitrogen/Creatinine [Mass ratio] 14 mg/mg [facility] Anion gap [Moles/Vol] 14 mmol/L Normal 7-17 [facility] Comment on above: Performed By: #### NATHANIEL RAMÍREZ ####[facility] (DEFAULT)[address] [place] [address] Chloride [Moles/Vol] 106 mmol/L Normal 98-108 [facility] Comment on above: Performed By: #### NATHANIEL RAMÍREZ ####[facility] (DEFAULT)[address] [place] [address] CO2 [Moles/Vol] 24 mmol/L Normal 21-31 [facility] Comment on above: Performed By: #### Rod BLOOM CHM7 ####[facility] (DEFAULT)[address] [place] [address] Creatinine [Mass/Vol] 1.13 mg/dL Normal 0.70-1.30 [facility] Comment on above: Performed By: #### TJ RAMÍREZ7 ####[facility] (DEFAULT)[address] [facility] [place] [address] GFR/1.73 sq M.predicted among non-blacks MDRD (S/P/Bld) [Vol rate/Area] 78 mL/min/{1.73_m2} Normal >=60 [facility] Comment on above: Result Comment: Repo rted eGFR is based on the CKD-EPI 2020 equation using creatinine, age, and sex. Performed By: #### TJ RAMÍREZ7 ####[facility] (DEFAULT)[address] [facility] [place] [address] Glucose [Mass/Vol] 86 mg/dL Normal 70-99 [facility] Comment on above: Performed By: #### Rod BLOOM CHM7 ####[facility] (DEFAULT)[address] [facility] [place] [address] Osmolality [Osmolality] 293 mosm/kg Normal 278-305 [facility] Comment on above: Performed By: #### Rod BLOOM CHM7 ####[facility] (DEFAULT)[address] [facility] [place] [address] Potassium [Moles/Vol] 3.8 mmol/L Normal 3.5-5.0 [facility] Comment on above: Performed By: #### Rod BLOOM CHM7 ####[facility] (DEFAULT)[address] [facility] [place] [address] Sodium [Moles/Vol] 140 mmol/L Normal 135-145 [facility] Comment on above: Performed By: #### M HELEN BLOOMM7 ####[facility] (DEFAULT)[address] [facility] [place] [address] Urea nitrogen [Mass/Vol] 16 mg/dL Normal 7-25 [facility] Comment on above: Performed By: #### M MERLE CHM7 ####[facility] (DEFAULT)[address] [facility] [place] [address] Urea nitrogen/Creatinine [Mass ratio] 14 mg/mg Normal [facility] Comment on above: Performed By: #### TJ RAMÍREZ7 ####[facility] (DEFAULT)[address] [place] [address], [place] [address] EBV BY PCR, QUANTITATIVE,BLO ODon 01-19-2024 Ebv By Pcr, Quant, Blood <1000 Normal <1000 [facility] Comment on above: Order Comment: This test was performed using a real time PCR assay. The dynamic range for this assay is 1000-5,000,000 IU/mL. A result <1000 IU/mL does not rule out the presence of EBV DNA in quantities below the sensitivity of this assay. This test was developed and its performance characteristics determined by [facility]. It has not been cleared or approved by the FDA. The laboratory is regulated under CLIA as qualified to perform high-complexity testing. This test is used for clinical purposes. It should not be regarded as investigational or for research. Performed By: #### E BVPCR ####[facility] (DEFAULT)[address] [place] [address], [place] [address] HISTOPLASMA AND BLASTOMYCES ANTIGEN, ENZYME IMMUNOASSAY, SERMon 01-19-2024 Histoplasma/Blastomy antonia Ag Result Not detected Not Detected [facility] Comment on above: No antigen from Hist oplasma or Blastomyces detected. False negative results may occur depending on extent of disease, and/or site of infection. Repeat testing on a new specimen if clinically indicated. Histoplasma/Blastomy antonia Ag Value Not detected ng/mL [facility] Comment on above: ADDITIONAL INFORMATION This test was developed and its performance characteristics determined by [facility] in a manner consistent with CLIA requirements. This test has not been cleared or approved by the U.S. Food and Drug Administration. Test Performed by: [facility] [address] [place] [address] Credit Counselor: Rosendo Bose M.D. Ph.D.; CLIA# [id number] [facility] MAGNESIUMon 01-19-2024 Interpretation and review of laboratory results Normal [facility] Magnesium [Mass/Vol] 1.8 mg/dL 1.6 - 2 .6 mg/dL [facility] Magnesium [Mass/Vol] 1.8 mg/dL Normal 1.6-2.6 [facility] Comment on above: Performed By: #### M HELEN BLOOM7 ####[facility] (DEFAULT)[address] [place] [address] No Panel Informationon 01-19 [facility] TACROLIMUS LEVEL, TROUGH (AZ E DRUG LEVEL)Ordered By: Raymundo Mehta on 01-19-2024 Interpretation and review of laboratory results Normal [facility] Tacrolimus (Bld) [Mass/Vol] 6.8 ng/mL Bone Marrow Transplant: 4.0-12.0, Therapeutic: 5.0-15.0 [facility] Method performed is a chemiluminescent microparticle immunoasssay on the [employer] i2000. The range is based on experience at [facility] and users should be aware that target concentrations vary widely depending on concomitant therapy, time post-transplant, and desired degree of immunosuppression. [facility] TACROLIMUS LEVEL, TROUGH (AZ E DRUG LEVEL)on 01-19-2024 Tacrolimus, Trough 6.8 ng/mL Normal Bone Susana ow Transplant: 4.0-12.0, Therapeutic: 5.0-15.0 [facility] Comment on above: Order Comment: Pleas e draw at specified interval PRIOR to dose. Do not hold dose to wait for level. Specimens batched twice per day, (M-F) and once per day weekendsMethod performed is a chemiluminescent microparticle immunoasssay on the [employer] i2000.The range is based on experience at [facility] and users should be aware that target concentrations vary widely depending on concomitant therapy, time post-transplant, and desired degree of immunosuppression. Performed By: #### T ACRO ####[facility] (DEFAULT)[address] [place] [address] US AV fistulaOrdered By: Diana Reyes on 01-19-2024 [facility] Work Phone: US AV fistulaon 01-19-2024 Radiology Study observation (narrative) [facility] AFP TUMOR MARKEROrdered By: Francisca Alaniz on 01-18-2024 AFP.tumor marker [Mass/Vol] ng/mL NINF - 8.1 ng/mL [facility] Comment on above: This test was perfor med on the 10Six Immunoassay platform by [employer] which is a two-site sandwich chemiluminescent immunoassay. It is important to note that assays using different manufacturers and/or methods may not be comparable. Interpretation and review of laboratory results Normal [facility] CBC,PLATELETSon 01-18-2024 Erythrocyte distribution width (RBC) [Ratio] 13.9 % 10.9 - 14.3 % [facility] Hematocrit (Bld) [Volume fraction] 38.4 % Low 39.6 - 48.8 % [facility] Hemoglobin (Bld) [Mass/Vol] 12.1 g/dL Low 13.4 - 16.8 g/dL [facility] Interpretation and review of laboratory results Abnormal [facility] MCH (RBC) [Entitic mass] 27.8 pg 26.1 - 33.3 pg [facility] MCHC (RBC) [Mass/Vol] 31.5 g/dL Low 31.9 - 36.5 g/dL [facility] MCV (RBC) [Entitic vol] 88.3 fL 79.0 - 94.5 fL [facility] Platelet mean volume (Bld) [Entitic vol] 10.4 fL 8.7 - 12.3 fL [facility] Platelets (Bld) [#/Vol] 183 10*3/uL 146 - 337 K/uL [facility] RBC (Bld) [#/Vol] 4.35 10*6/uL Low [facility] WBC (Bld) [#/Vol] 3.66 10*3/uL Low 3.73 - 10. 10 K/uL [facility] Hematocrit (Bld) [Volume fraction] 38.4 % Low 39.6-48.8 [facility] Comment on above: Performed By: #### H EMO ####[facility] (DEFAULT)[address] [place] [address] Hemoglobin (Bld) [Mass/Vol] 12.1 g/dL Low 13.4-16.8 [facility] Comment on above: Performed By: #### H EMO ####[facility] (DEFAULT)[address] [place] [address] MCV (RBC) [Entitic vol] 88.3 fL Normal 79.0-94.5 [facility] Comment on above: Performed By: #### H EMO ####[facility] (DEFAULT)[address] [place] [address] Mean Cell Hgb 27.8 pg Normal 26.1-33.3 [facility] Comment on above: Performed By: #### H EMOGC ####[facility] (DEFAULT)[address] [place] [address] Mean Cell Hgb Conc 31.5 g/dL Low 31.9-36.5 [facility] Comment on above: Performed By: #### H EMOGC ####[facility] (DEFAULT)[address] [place] [address] Platelet mean volume (Bld) [Entitic vol] 10.4 fL Normal 8.7-12.3 [facility] Comment on above: Performed By: #### H [facility] ####[facility] (DEFAULT)[address] [place] [address] Platelets (Bld) [#/Vol] 183 10*3/uL Normal 146-337 [facility] Comment on above: Performed By: #### H [facility] ####[facility] (DEFAULT)[address] [place] [address] 21065 RBC (Bld) [#/Vol] 4.35 10*6/uL Low 4.38-5.83 [facility] Comment on above: Performed By: #### H [facility] ####[facility] (DEFAULT)[address] [place] [address] 24900 RBC Distribution 13.9 % Normal 10.9-14.3 [facility] Comment on above: Performed By: #### H [facility] ####[facility] (DEFAULT)[address] [place] [address] 64731 WBC (Bld) [#/Vol] 3.66 10*3/uL Low 3.73-10.10 [facility] Comment on above: Performed By: #### H [facility] ####[facility] (DEFAULT)[address] [place] [address] CHEM 7 (LYTES,BUN,CREA,GLUC) on 01-18-2024 Anion gap [Moles/Vol] 11 mmol/L 7 - 17 mmol/L [facility] Chloride [Moles/Vol] 108 mmol/L 98 - 10 8 mmol/L [facility] CO2 [Moles/Vol] 26 mmol/L 21 - 31 mmol/L [facility] Creatinine [Mass/Vol] 1.00 mg/dL 0.70 - 1.30 mg/dL [facility] eGFR, CKD-EPI, Male - PINF [facility] Comment on above: Reported eGFR is bas ed on the CKD-EPI 2020 equation using creatinine, age, and sex. Glucose [Mass/Vol] 89 mg/dL 70 - 99 mg/dL [facility] Osmolality Calc [Osmolality] 295 [facility] Potassium [Moles/Vol] 3.9 mmol/L 3.5 - 5.0 mmol/L [facility] Sodium [Moles/Vol] 141 mmol/L 135 - 145 mmol/L [facility] Urea nitrogen [Mass/Vol] 16 mg/dL 7 - 25 mg/dL [facility] Urea nitrogen/Creatinine [Mass ratio] 16 mg/mg [facility] Anion gap [Moles/Vol] 11 mmol/L Normal 7-17 [facility] Comment on above: Performed By: #### M GO, CHM7, HFP, TSHQR ####[facility] (DEFAULT)[address] [place] [address] Chloride [Moles/Vol] 108 mmol/L Normal 98-108 [facility] Comment on above: Performed By: #### M GO, CHM7, HFP, TSHQR ####[facility] (DEFAULT)[address] [facility] [place] [address] CO2 [Moles/Vol] 26 mmol/L Normal 21-31 [facility] Comment on above: Performed By: #### M GO, CHM7, HFP, TSHQR ####[facility] (DEFAULT)[address] [place] [address] Creatinine [Mass/Vol] 1.00 mg/dL Normal 0.70-1.30 [facility] Comment on above: Performed By: #### M GO, CHM7, HFP, TSHQR ####[facility] (DEFAULT)[address] [place] [address] eGFR, CKD-EPI, Male > Normal >=60 [facility] Comment on above: Result Comment: Repo rted eGFR is based on the CKD-EPI 2020 equation using creatinine, age, and sex. Performed By: #### M GO, CHM7, HFP, TSHQR ####[facility] (DEFAULT)[address] [place] [address] Glucose [Mass/Vol] 89 mg/dL Normal 70-99 [facility] Comment on above: Performed By: #### M GO, CHM7, HFP, TSHQR ####[facility] (DEFAULT)[address] [place] [address] Osmolality [Osmolality] 295 mosm/kg Normal 278-305 [facility] Comment on above: Performed By: #### M GO, CHM7, HFP, TSHQR ####[facility] (DEFAULT)[address] [place] [address] Potassium [Moles/Vol] 3.9 mmol/L Normal 3.5-5.0 [facility] Comment on above: Performed By: #### M GO, CHM7, HFP, TSHQR ####[facility] (DEFAULT)[address] [place] [address] Sodium [Moles/Vol] 141 mmol/L Normal 135-145 [facility] Comment on above: Performed By: #### M GO, CHM7, HFP, TSHQR ####[facility] (DEFAULT)[address] [place] [address] Urea nitrogen [Mass/Vol] 16 mg/dL Normal 7-25 [facility] Comment on above: Performed By: #### M GO, CHM7, HFP, TSHQR ####[facility] (DEFAULT)[address] [place] [address] Urea nitrogen/Creatinine [Mass ratio] 16 mg/mg Normal [facility] Comment on above: Performed By: #### M GO, CHM7, HFP, TSHQR ####[facility] (DEFAULT)[address] [place] [address] Cardiac echo study Procedure Ordered By: Gian Carlos on 01-18-2024 Ao ASC index 1.63 cm/m2 [facility] Work Phone: Ao peak meliton 1.46 [facility]: Ao SOV index 1.56 cm/m2 [facility] Work Phone: Ao STJ index 1.25 cm/m2 [facility] Work Phone: Ao VTI 35.74 [facility] Work Phone: Ascending aorta 3.39 [facility] Work Phone: [phone] AV LVOT peak gradient 4 mmHg [facility] Work Phone: AV mean gradient 5 mmHg [facility] Work Phone: AV peak gradient 9 mmHG [facility] Work Phone: AV valve area 3.09 cm2 [facility] Work Phone: AV Velocity Ratio 0.73 [facility] Work Phone: VEGA (continuity Vmax) 3.01 cm2 [facility] Work Phone: VEGA (continuity VTI) 3.09 cm2 [facility] Work Phone: VEGA index (continuity Vmax) 1.45 m/s [facility] Work Phone: VEGA index (continuity VTI) 1.49 cm2/m2 [facility] Work Phone: Avg e' pk meliton 0.07 m/s [facility] Work Phone: Avg E/e' ratio 19.45 [facility] Work Phone: Body surface area Derived from formula 2.08 m2 [facility] Work Phone: BP EF 62 % [facility] Work Phone: DI (Vmax) 0.73 [facility] Work Phone: DI (VTI) 0.74 m/2 [facility] Work Phone: E wave decelartion time 180.38 msec [facility] Work Phone: e' lateral pk meliton 0.0789 m[facility] Work Phone: e' lateral pk meliton 0.08 m/s [facility] Work Phone: e' septal pk meliton 0.0653 m/s [facility] Work Phone: e' septal pk meliton 0.07 m/s [facility] Work Phone: E/A ratio 2.67 [facility] Work Phone: E/e' lateral ratio 17.62 [facility] Work Phone: E/e' septal ratio 21.29 [facility] Work Phone: EF SP 2CH 66 [facility] Work Phone: EF SP 4CH 58 [facility] Work Phone: FS 28 % 28 - 44 % [facility] Work Phone: IVC ostium 2.30 cm [facility] Work Phone: IVS 1.11 cm [facility] Work Phone: LA AREA 2CH 24.36 cm2 [facility] Work Phone: LA area 4CH 20.36 cm2 [facility] Work Phone: [phone] LA ESV BP (MOD) 64 mL [facility] Work Phone: [phone] LA ESV BP (MOD) index 31 mL/m2 [facility] Work Phone: [phone] LA ESV SP 2CH (MOD) 76 mL [facility] Work Phone: [phone] LA ESV SP 4CH (MOD) 53 mL [facility] Work Phone: [phone] LV EDV BP 180 mL [facility] Work Phone: LV EDV SP 2CH 190 mL [facility] Work Phone: [phone] LV EDV SP 4CH 166 mL [facility] Work Phone: [phone] LV ESV BP 69 mL [facility] Work Phone: LV ESV SP 2CH 65 mL [facility] Work Phone: [phone] LV ESV SP 4CH 70 mL [facility] Work Phone: [phone] LV mass 254.73 g [facility] Work Phone: LV Mass Index 122.5 g/m2 [facility] Work Phone: LV RWT 0.42 [facility] Work Phone: LV stroke volume BP (ml) 111 mL [facility] Work Phone: LV stroke volume index BP 53.37 mL/m2 [facility] Work Phone: LVIDD 5.53 cm [facility] Work Phone: LVIDS 3.97 cm [facility] Work Phone: LVOT area 4.15 cm2 [facility] Work Phone: LVOT diameter 2.30 cm [facility] Work Phone: LVOT peak meliton 1.06 m/s [facility] Work Phone: LVOT peak VTI 26.61 cm [facility] Work Phone: LVOT stroke volume 111 cm3 [facility] Work Phone: LVOT stroke volume index 53.13 ml/m2 [facility] Work Phone: Mr max meliton 4.21 m/s [facility] Work Phone: MR VTI 134.50 cm [facility] Work Phone: [phone] MV mean gradient 3 mmHg [facility] Work Phone: MV peak gradient 11 mmHg [facility] Work Phone: MV pk A meliton 0.52 m/s [facility] Work Phone: MV pk E meliton 1.39 m/s [facility] Work Phone: MV stenosis pressure 1/2 time 58.56 ms [facility] Work Phone: [phone] MV valve area by continuity eq 2.93 cm2 [facility] Work Phone: MV valve area p 1/2 method 3.76 cm2 [facility] Work Phone: [phone] MV VTI 37.70 cm [facility] Work Phone: MVA (continuity VTI) 2.92 cm [facility] Work Phone: OSU AV VTI RATIO PRE STRESS 0.74 [facility] Work Phone: OSU ECHO LV BIPLANE SYSTOLIC VOLUME INDEX 33.17 mL/m2 [facility] Work Phone: OSU ECHO LV BP DIASTOLIC VOLUME INDEX 86.54 mL/m2 [facility] Work Phone: OSU ECHO MR PEAK GRADIENT 70.94 mmHg [facility] Work Phone: PW 1.16 cm [facility] Work Phone: RA area 4CH (MOD) 14.50 cm2 [facility] Work Phone: RA vol index 4CH (MOD) 18.27 mL/m2 [facility] Work Phone: Right atrium volume 4 chamber method of disks 38 mL [facility] Work Phone: RV Area diastolic 33.20 cm2 [facility] Work Phone: RV Area systolic 21.30 cm2 [facility] Work Phone: RV basal diam 4.52 cm [facility] Work Phone: RV Fractional area change 35.8 % [facility] Work Phone: RV long diam 8.96 cm [facility] Work Phone: RV mid diam 3.70 cm [facility] Work Phone: RV S' 22.01 cm/s [facility] Work Phone: RVOT peak gradient 4 mmHg [facility] Work Phone: RVOT peak meliton 0.96 m/s [facility] Work Phone: RVOT peak VTI 20.86 cm [facility] Work Phone: Sinus 3.24 cm [facility] Work Phone: STJ 2.61 cm [facility] Work Phone: Stroke Volume 111 cm/mL [facility] Work Phone: Stroke volume index 53 [facility] Work Phone: TAPSE 2.19 cm [facility] Work Phone: [facility] Work Phone: Cardiac echo study Procedure [...] echocardiography study was performed. Imaging system used: [employer]. Indications Indications for study: shortness of breath. [facility] Radiology Study observation (narrative) [facility] HEPATIC FUNCTION PANELon Albumin [Mass/Vol] 3.5 g/dL 3.5 - 5.0 g/dL [facility] ALP [Catalytic activity/Vol] 70 U/L 32 - 126 U/L [facility] ALT [Catalytic activity/Vol] 8 U/L Low 10 - 52 U/L [facility] AST [Catalytic activity/Vol] 20 U/L 10 - 39 U/L [facility] Bilirubin [Mass/Vol] 1.7 mg/dL High NINF - 1.5 mg/dL [facility] Bilirubin.direct [Mass/Vol] 0.4 mg/dL High NINF - 0.3 mg/dL [facility] Protein [Mass/Vol] 6.0 g/dL Low 6.4 - 8.3 g/dL [facility] Albumin [Mass/Vol] 3.5 g/dL Normal 3.5-5.0 [facility] Comment on above: Performed By: #### M GO, CHM7, HFP, TSHQR ####[facility] (DEFAULT)[address] [facility] [place] [address] ALP [Catalytic activity/Vol] 70 U/L Normal 32-126 [facility] Comment on above: Performed By: #### M GO, CHM7, HFP, TSHQR ####[facility] (DEFAULT)[address] [facility] [place] [address] ALT [Catalytic activity/Vol] 8 U/L Low 10-52 [facility] Comment on above: Performed By: #### M GO, CHM7, HFP, TSHQR ####[facility] (DEFAULT)[address] [facility] [place] [address] AST [Catalytic activity/Vol] 20 U/L Normal 10-39 [facility] Comment on above: Performed By: #### M GO, CHM7, HFP, TSHQR ####[facility] (DEFAULT)[address] [place] [address] Bilirubin [Mass/Vol] 1.7 mg/dL High <1.5 [facility] Comment on above: Performed By: #### M MERLE, CHM7, HFP, TSHQR ####[facility] (DEFAULT)[address] [place] [address] Bilirubin.indirect [Mass/Vol] 0.4 mg/dL High <0.3 [facility] Comment on above: Performed By: #### M MERLE, CHM7, HFP, TSHQR ####[facility] (DEFAULT)[address] [place] [address] Protein [Mass/Vol] 6.0 g/dL Low 6.4-8.3 [facility] Comment on above: Performed By: #### M MERLE, CHM7, HFP, TSHQR ####[facility] (DEFAULT)[address] [place] [address] MAGNESIUMon 01-18-2024 Magnesium [Mass/Vol] 1.5 mg/dL Low 1.6 - 2 .6 mg/dL [facility] Magnesium [Mass/Vol] 1.5 mg/dL Low 1.6-2.6 [facility] Comment on above: Performed By: #### M MERLE, CHM7, HFP, TSHQR ####[facility] (DEFAULT)[address] [place] [address] No Panel Informationon 01-18 Interpretation and review of laboratory results Abnormal [facility] PT,INR,PTTon 01-18-2024 aPTT Coag (PPP) [Time] 30.0 s [facility] INR Coag (Bld) [Relative time] 1.1 {INR} 0.9 - 1.1 [facility] Interpretation and review of laboratory results Abnormal [facility] PT Coag (PPP) [Time] 14.5 s High [facility] aPTT Coag (Bld) [Time] 30.0 s Normal 24.0-34.3 [facility] Comment on above: Performed By: #### P TPTT ####[facility] (DEFAULT)[address] [place] [address] INR Coag (PPP) [Relative time] 1.1 {INR} Normal 0.9-1.1 [facility] Comment on above: Performed By: #### P TPTT ####[facility] (DEFAULT)[address] [place] [address] 220[address] PT Coag (PPP) [Time] 14.5 s High 11.9-14.2 [facility] Comment on above: Performed By: #### P TPTT ####[facility] (DEFAULT)[address] [place] [address] 11892 TSH W/FT4 REFLEXon 4 Interpretation and review of laboratory results Normal [facility] TSH Qn 2.660 m[IU]/L [facility] TSH 2.660 uIU/mL Normal 0.550-4.780 [facility] Comment on above: Performed By: #### M GO, CHM7, HFP, TSHQR ####[facility] (DEFAULT)[address] [place] [address] AFP TUMOR MARKERon 4 AFP Tumor Marker <2.2 Normal <8.1 [facility] Comment on above: Result Comment: This test was performed on the 10Six Immunoassay platform by [employer] which is a two-site sandwich chemiluminescent immunoassay. It is important to note that assays using different manufacturers and/or methods may not be comparable. Performed By: #### A FPTMR ####[facility] (DEFAULT)[address] [place] [address] DARYL AURIS SCREEN BY PCRO rdered By: Mynor Alejandro on 01-17-2024 Daryl auris Screen by PCR Not detected Not Detected [facility] Interpretation and review of laboratory results Normal [facility] This test was perfor med using a real-time PCR assay. This test was developed, and its performance characteristics determined by [facility]. It has not been cleared or approved by the FDA. The laboratory is regulated under CLIA as qualified to perform high-complexity testing. This test is used for clinical purposes. It should not be regarded as investigational or for research. [facility] CBC,PLATELETSon 01-17-2024 Erythrocyte distribution width (RBC) [Ratio] 14.0 % 10.9 - 14.3 % [facility] Hematocrit (Bld) [Volume fraction] 37.2 % Low 39.6 - 48.8 % [facility] Hemoglobin (Bld) [Mass/Vol] 12.0 g/dL Low 13.4 - 16.8 g/dL [facility] Interpretation and review of laboratory results Abnormal [facility] MCH (RBC) [Entitic mass] 27.9 pg 26.1 - 33.3 pg [facility] MCHC (RBC) [Mass/Vol] 32.3 g/dL 31.9 - 36.5 g/dL [facility] MCV (RBC) [Entitic vol] 86.5 fL 79.0 - 94.5 fL [facility] Platelet mean volume (Bld) [Entitic vol] 10.5 fL 8.7 - 12.3 fL [facility] Platelets (Bld) [#/Vol] 159 10*3/uL 146 - 337 K/uL [facility] RBC (Bld) [#/Vol] 4.30 10*6/uL Low [facility] WBC (Bld) [#/Vol] 3.69 10*3/uL Low 3.73 - 10. 10 K/uL [facility] Hematocrit (Bld) [Volume fraction] 37.2 % Low 39.6-48.8 [facility] Comment on above: Performed By: #### H [facility] ####[facility] (DEFAULT)[address] [place] [address] Hemoglobin (Bld) [Mass/Vol] 12.0 g/dL Low 13.4-16.8 [facility] Comment on above: Performed By: #### H EMOGC ####[facility] (DEFAULT)[address] [facility] [place] [address] MCV (RBC) [Entitic vol] 86.5 fL Normal 79.0-94.5 [facility] Comment on above: Performed By: #### H EMOGC ####[facility] (DEFAULT)[address] [facility] [place] [address] Mean Cell Hgb 27.9 pg Normal 26.1-33.3 [facility] Comment on above: Performed By: #### H EMOGC ####[facility] (DEFAULT)[address] [facility] [place] [address] Mean Cell Hgb Conc 32.3 g/dL Normal 31.9-36.5 [facility] Comment on above: Performed By: #### H EMOGC ####[facility] (DEFAULT)[address] [facility] [place] [address] Platelet mean volume (Bld) [Entitic vol] 10.5 fL Normal 8.7-12.3 [facility] Comment on above: Performed By: #### H EMOGC ####[facility] (DEFAULT)[address] [place] [address] Platelets (Bld) [#/Vol] 159 10*3/uL Normal 146-337 [facility] Comment on above: Performed By: #### H EMOGC ####[facility] (DEFAULT)[address] [facility] [place] [address] RBC (Bld) [#/Vol] 4.30 10*6/uL Low 4.38-5.83 [facility] Comment on above: Performed By: #### H EMOGC ####[facility] (DEFAULT)[address] [facility] [place] [address] RBC Distribution 14.0 % Normal 10.9-14.3 [facility] Comment on above: Performed By: #### H [facility] ####[facility] (DEFAULT)[address] [place] [address] WBC (Bld) [#/Vol] 3.69 10*3/uL Low 3.73-10.10 [facility] Comment on above: Performed By: #### H [facility] ####[facility] (DEFAULT)[address] [place] [address] CHEM 7 (LYTES,BUN,CREA,GLUC) on 01-17-2024 Anion gap [Moles/Vol] 13 mmol/L 7 - 17 mmol/L [facility] Chloride [Moles/Vol] 109 mmol/L High 98 - 10 8 mmol/L [facility] CO2 [Moles/Vol] 21 mmol/L 21 - 31 mmol/L [facility] Creatinine [Mass/Vol] 1.04 mg/dL 0.70 - 1.30 mg/dL [facility] eGFR, CKD-EPI, Male 86 - PINF [facility] Comment on above: Reported eGFR is bas ed on the CKD-EPI 2020 equation using creatinine, age, and sex. Glucose [Mass/Vol] 82 mg/dL 70 - 99 mg/dL [facility] Osmolality Calc [Osmolality] 292 [facility] Potassium [Moles/Vol] 4.4 mmol/L 3.5 - 5.0 mmol/L [facility] Sodium [Moles/Vol] 139 mmol/L 135 - 145 mmol/L [facility] Urea nitrogen [Mass/Vol] 17 mg/dL 7 - 25 mg/dL [facility] Urea nitrogen/Creatinine [Mass ratio] 16 mg/mg [facility] Anion gap [Moles/Vol] 13 mmol/L Normal 7-17 [facility] Comment on above: Performed By: #### M GO, CHM7, [facility] ####[facility] (DEFAULT)[address] [place] [address] Chloride [Moles/Vol] 109 mmol/L High 98-108 [facility] Comment on above: Performed By: #### NATHANIEL RAMÍREZ, HFP ####[facility] (DEFAULT)[address] [place] [address] CO2 [Moles/Vol] 21 mmol/L Normal 21-31 [facility] Comment on above: Performed By: #### NATHANIEL RAMÍREZ, HFP ####[facility] (DEFAULT)[address] [facility] [place] [address] Creatinine [Mass/Vol] 1.04 mg/dL Normal 0.70-1.30 [facility] Comment on above: Performed By: #### NATHANIEL RAMÍREZ, HFP ####[facility] (DEFAULT)[address] [facility] [place] [address] GFR/1.73 sq M.predicted among non-blacks MDRD (S/P/Bld) [Vol rate/Area] 86 mL/min/{1.73_m2} Normal >=60 [facility] Comment on above: Result Comment: Repo rted eGFR is based on the CKD-EPI 2020 equation using creatinine, age, and sex. Performed By: #### NATHANIEL RAMÍREZ, HFP ####[facility] (DEFAULT)[address] [facility] [place] [address] Glucose [Mass/Vol] 82 mg/dL Normal 70-99 [facility] Comment on above: Performed By: #### NATHANIEL RAMÍREZ, HFP ####[facility] (DEFAULT)[address] [facility] [place] [address] Osmolality [Osmolality] 292 mosm/kg Normal 278-305 [facility] Comment on above: Performed By: #### NATHANIEL RAMÍREZ, HFP ####[facility] (DEFAULT)[address] [facility] [place] [address] Potassium [Moles/Vol] 4.4 mmol/L Normal 3.5-5.0 [facility] Comment on above: Performed By: #### M MERLE, CHM7, HFP ####[facility] (DEFAULT)[address] [place] [address] Sodium [Moles/Vol] 139 mmol/L Normal 135-145 [facility] Comment on above: Performed By: #### M MERLE, CHM7, HFP ####[facility] (DEFAULT)[address] [facility] [place] [address] Urea nitrogen [Mass/Vol] 17 mg/dL Normal 7-25 [facility] Comment on above: Performed By: #### M MERLE, CHM7, HFP ####[facility] (DEFAULT)[address] [place] [address] Urea nitrogen/Creatinine [Mass ratio] 16 mg/mg Normal [facility] Comment on above: Performed By: #### Rod BLOOM, CHM7, HFP ####[facility] (DEFAULT)[address] [facility] [place] [address] CT ABDOMEN/PELVIS WITHOUT CO NTRASTon 01-17-2024 CT ABDOMEN/PELVIS WITHOUT CONTRAST Normal [facility] CT Abdomen and Pelvis WO con [...] unremarkable. Kidneys: Severe atrophy of the bilateral [place] kidney is without hydronephrosis. Right lower quadrant [...] unremarkable. Kidneys: Severe atrophy of the bilateral [place] kidney is without hydronephrosis. Right lower quadrant [...] the middle lobe. Trace left pleural effusion. [facility] Radiology Study observation (narrative) [facility] HEPATIC FUNCTION PANELon Albumin [Mass/Vol] 3.5 g/dL 3.5 - 5.0 g/dL [facility] ALP [Catalytic activity/Vol] 73 U/L 32 - 126 U/L [facility] ALT [Catalytic activity/Vol] 7 U/L Low 10 - 52 U/L [facility] AST [Catalytic activity/Vol] 25 U/L 10 - 39 U/L [facility] Bilirubin [Mass/Vol] 1.8 mg/dL [facility]/dL [facility] Bilirubin.direct [Mass/Vol] 0.3 mg/dL High NINF - 0.3 mg/dL [facility] Protein [Mass/Vol] 6.0 g/dL Low 6.4 - 8.3 g/dL [facility] Albumin [Mass/Vol] 3.5 g/dL Normal 3.5-5.0 [facility] Comment on above: Performed By: #### NATHANIEL RAMÍREZ, HFP ####[facility] (DEFAULT)[address] [place] [address] ALP [Catalytic activity/Vol] 73 U/L Normal 32-126 [facility] Comment on above: Performed By: #### TJ RAMÍREZ7, HFP ####[facility] (DEFAULT)[address] [facility] [place] [address] ALT [Catalytic activity/Vol] 7 U/L Low 10-52 [facility] Comment on above: Performed By: #### Rod BLOOM CHM7, HFP ####[facility] (DEFAULT)[address] [facility] [place] [address] AST [Catalytic activity/Vol] 25 U/L Normal 10-39 [facility] Comment on above: Performed By: #### M HELEN BLOOMM7, HFP ####[facility] (DEFAULT)[address] [place] [address] Bilirubin [Mass/Vol] 1.8 mg/dL High <1.5 [facility] Comment on above: Performed By: #### M HELEN BLOOMM7, HFP ####[facility] (DEFAULT)[address] [place] [address] Bilirubin.indirect [Mass/Vol] 0.3 mg/dL High <0.3 [facility] Comment on above: Performed By: #### M TJ BLOOM7, HFP ####[facility] (DEFAULT)[address] [place] [address] Protein [Mass/Vol] 6.0 g/dL Low 6.4-8.3 [facility] Comment on above: Performed By: #### M HELEN BLOOMM7, HFP ####[facility] (DEFAULT)[address] [place] [address] HISTOPLASMA AND BLASTOMYCES ANTIGEN, ENZYME IMMUNOASSAY, SERMon 01-17-2024 Histoplasma/Blastomy antonia Ag Result Not detected Normal Not Detected [facility] Comment on above: Result Comment: No a ntigen from Histoplasma or Blastomyces detected. Falsenegative results may occur depending on extent of disease,and/or site of infection. Repeat testing on a new specimenif clinically indicated. Performed By: #### H IBAG ####[facility] (DEFAULT)[address] [place] [address] Histoplasma/Blastomy antonia Ag Value Not detected Normal [facility] Comment on above: Result Comment: ---- ADDITIONAL INFORMATION This test was developed and its performance characteristicsdetermined by [facility] in a manner consistent with CLIArequirements. This test has not been cleared or approved bythe U.S. Food and Drug Administration.Test Performed by:[facility] [place], [place] [address]Kcb Director: Rosendo Bose M.D. Ph.D.; CLIA# [id number] Performed By: #### H IBAG ####[facility] (DEFAULT)[address] [place] [address] MAGNESIUMon 01-17-2024 Interpretation and review of laboratory results Normal [facility] Magnesium [Mass/Vol] 1.7 mg/dL 1.6 - 2 .6 mg/dL [facility] Magnesium [Mass/Vol] 1.7 mg/dL Normal 1.6-2.6 [facility] Comment on above: Performed By: #### M GO, CHM7, HFP ####[facility] (DEFAULT)[address] [place] [address] No Panel Informationon 01-17 Interpretation and review of laboratory results Abnormal [facility] PT,INR,PTTon 01-17-2024 aPTT Coag (PPP) [Time] 29.9 s [facility] INR Coag (Bld) [Relative time] 1.1 {INR} 0.9 - 1.1 [facility] Interpretation and review of laboratory results Abnormal [facility] PT Coag (PPP) [Time] 14.5 s High [facility] aPTT Coag (Bld) [Time] 29.9 s Normal 24.0-34.3 [facility] Comment on above: Performed By: #### P TPTT ####[facility] (DEFAULT)[address] [place] [id number] INR Coag (PPP) [Relative time] 1.1 {INR} Normal 0.9-1.1 [facility] Comment on above: Performed By: #### P TPTT ####[facility] (DEFAULT)[address] [place] [address] PT Coag (PPP) [Time] 14.5 s High 11.9-14.2 [facility] Comment on above: Performed By: #### P TPTT ####[facility] (DEFAULT)[address] [place] [address] B-TYPE NATRIURETIC PEPTIDE ( BRAIN)on 01-16-2024 Interpretation and review of laboratory results Abnormal [facility] Natriuretic peptide B (Bld) [Mass/Vol] 212 pg/mL High 0 - 100 pg/mL [facility] Natriuretic peptide B (Bld) [Mass/Vol] 212 pg/mL High 0-100 [facility] Comment on above: Performed By: #### B DRAIN CLEANER PLUMBER ####[facility] (DEFAULT)[address] [place] [address] CALCIUMon 01-16-2024 Calcium [Mass/Vol] 8.5 mg/dL Low 8.6 - 10. 5 mg/dL [facility] Calcium [Mass/Vol] 8.5 mg/dL Low 8.6-10.5 [facility] Comment on above: Performed By: #### C A, MGO, CHM7, HFP, IPB ####[facility] (DEFAULT)[address] [place] [address] DARYL AURIS SCREEN BY PCRo n 01-16-2024 Daryl auris Screen by PCR Not detected Normal Not Detected [facility] Comment on above: Order Comment: This test was performed using a real-time PCR assay. This test was developed, and its performance characteristics determined by [facility]. It has not been cleared or approved by the FDA. The laboratory is regulated under CLIA as qualified to perform high-complexity testing. This test is used for clinical purposes. It should not be regarded as investigational or for research. Performed By: #### C ANDIDA AURIS SCREEN BY PCR ####[facility] (DEFAULT)[address] [place] [address] CBC AND ELECTRONIC DIFFon Basophils (Bld) [#/Vol] K/uL 0.00 - 0.09 K/uL [facility] Basophils/100 WBC (Bld) 0.6 % [facility] Differential cell count method Nom (Bld) Electronic Differential [facility] Eosinophils (Bld) [#/Vol] 0.09 10*3/uL 0.00 - 0.48 K/uL [facility] Eosinophils/100 WBC (Bld) 2.5 % [facility] Erythrocyte distribution width (RBC) [Ratio] 14.0 % 10.9 - 14.3 % [facility] Hematocrit (Bld) [Volume fraction] 37.4 % Low 39.6 - 48.8 % [facility] Hemoglobin (Bld) [Mass/Vol] 12.1 g/dL Low 13.4 - 16.8 g/dL [facility] Immature granulocytes (Bld) [#/Vol] K/uL NINF - 0.07 K/uL [facility] Immature granulocytes/100 WBC (Bld) 0.3 % [facility] Interpretation and review of laboratory results Abnormal [facility] Lymphocytes (Bld) [#/Vol] 1.16 10*3/uL 0.83 - 3.57 K/uL [facility] Lymphocytes/100 WBC (Bld) 32.0 % [facility] MCH (RBC) [Entitic mass] 28.4 pg 26.1 - 33.3 pg [facility] MCHC (RBC) [Mass/Vol] 32.4 g/dL 31.9 - 36.5 g/dL [facility] MCV (RBC) [Entitic vol] 87.8 fL 79.0 - 94.5 fL [facility] Monocytes (Bld) [#/Vol] 0.43 10*3/uL 0.24 - 0.93 K/uL [facility] Monocytes/100 WBC (Bld) 11.9 % [facility] Neutrophils (Bld) [#/Vol] 1.91 10*3/uL 1.57 - 6.19 K/uL [facility] Nucleated RBC/100 WBC (Bld) [Ratio] 0.0 % NINF [facility] Platelet mean volume (Bld) [Entitic vol] 10.1 fL 8.7 - 12.3 fL [facility] Platelets (Bld) [#/Vol] 155 10*3/uL 146 - 337 K/uL [facility] RBC (Bld) [#/Vol] 4.26 10*6/uL Low [facility] Segmented neutrophils/100 WBC (Bld) 52.7 % [facility] WBC (Bld) [#/Vol] 3.62 10*3/uL Low 3.73 - 10. 10 K/uL [facility] Abs Baso Auto < Normal 0.00-0.09 [facility] Comment on above: Performed By: #### L AB980 ####[facility] (DEFAULT)[address] [place] [address] Basophils/100 WBC (Bld) 0.6 % Normal [facility] Comment on above: Performed By: #### L AB980 ####[facility] (DEFAULT)[address] [place] [address] DIFF STATUS Electronic Differential Normal [facility] Comment on above: Performed By: #### L AB980 ####[facility] (DEFAULT)[address] [place] [address] Eosinophils (Bld) [#/Vol] 0.09 10*3/uL Normal 0.00-0.48 [facility] Comment on above: Performed By: #### L AB980 ####[facility] (DEFAULT)[address] [place] [address] Eosinophils/100 WBC (Bld) 2.5 % Normal [facility] Comment on above: Performed By: #### L AB980 ####[facility] (DEFAULT)[address] [place] [address] Hematocrit (Bld) [Volume fraction] 37.4 % Low 39.6-48.8 [facility] Comment on above: Performed By: #### L AB980 ####[facility] (DEFAULT)[address] [facility] [place] [address] Hemoglobin (Bld) [Mass/Vol] 12.1 g/dL Low 13.4-16.8 [facility] Comment on above: Performed By: #### L AB980 ####[facility] (DEFAULT)[address] [place] [address] Immature Grans % 0.3 % Normal [facility] Comment on above: Performed By: #### L AB980 ####[facility] (DEFAULT)[address] [facility] [place] [address] Immature Grans Absolute < Normal <=0.07 [facility] Comment on above: Performed By: #### L AB980 ####[facility] (DEFAULT)[address] [facility] [place] [address] Lymphocytes (Bld) [#/Vol] 1.16 10*3/uL Normal 0.83-3.57 [facility] Comment on above: Performed By: #### L AB980 ####[facility] (DEFAULT)[address] [facility] [place] [address] Lymphocytes/100 WBC (Bld) 32.0 % Normal [facility] Comment on above: Performed By: #### L AB980 ####[facility] (DEFAULT)[address] [place] [address], [place] [address] MCV (RBC) [Entitic vol] 87.8 fL Normal 79.0-94.5 [facility] Comment on above: Performed By: #### L AB980 ####[facility] (DEFAULT)[address] [place] [place] [address] Mean Cell Hgb 28.4 pg Normal 26.1-33.3 [facility] Comment on above: Performed By: #### L AB980 ####[facility] (DEFAULT)[address] [facility] [place] [address] Mean Cell Hgb Conc 32.4 g/dL Normal 31.9-36.5 [facility] Comment on above: Performed By: #### L AB980 ####[facility] (DEFAULT)[address] [facility] [place] [address] Monocytes (Bld) [#/Vol] 0.43 10*3/uL Normal 0.24-0.93 [facility] Comment on above: Performed By: #### L AB980 ####[facility] (DEFAULT)[address] [facility] [place] [address] Monocytes/100 WBC (Bld) 11.9 % Normal [facility] Comment on above: Performed By: #### L AB980 ####[facility] (DEFAULT)[address] [facility] [place] [address] Nucleated RBC 0.0 /100 WBC Normal <=0.2 [facility] Comment on above: Performed By: #### L AB980 ####[facility] (DEFAULT)[address] [facility] [place] [address] Platelet mean volume (Bld) [Entitic vol] 10.1 fL Normal 8.7-12.3 [facility] Comment on above: Performed By: #### L AB980 ####[facility] (DEFAULT)[address] [facility] [place] [address] Platelets (Bld) [#/Vol] 155 10*3/uL Normal 146-337 [facility] Comment on above: Performed By: #### L AB980 ####[facility] (DEFAULT)[address] [facility] [place] [address] RBC (Bld) [#/Vol] 4.26 10*6/uL Low 4.38-5.83 [facility] Comment on above: Performed By: #### L AB980 ####[facility] (DEFAULT)[address] [facility] [place] [address] RBC Distribution 14.0 % Normal 10.9-14.3 [facility] Comment on above: Performed By: #### L AB980 ####[facility] (DEFAULT)[address] [facility] [place] [address] Segs + Bands Auto 52.7 % Normal [facility] Comment on above: Performed By: #### L AB980 ####[facility] (DEFAULT)[address] [facility] [place] [address] Segs + Bands,Absolute Auto 1.91 K/uL Normal 1.57-6.19 [facility] Comment on above: Performed By: #### L AB980 ####[facility] (DEFAULT)[address] [place] [address] WBC (Bld) [#/Vol] 3.62 10*3/uL Low 3.73-10.10 [facility] Comment on above: Performed By: #### L AB980 ####[facility] (DEFAULT)[address] [place] [address] CHEM 7 (LYTES,BUN,CREA,GLUC) on 01-16-2024 Anion gap [Moles/Vol] 11 mmol/L 7 - 17 mmol/L [facility] Chloride [Moles/Vol] 108 mmol/L 98 - 10 8 mmol/L [facility] CO2 [Moles/Vol] 24 mmol/L 21 - 31 mmol/L [facility] Creatinine [Mass/Vol] 1.04 mg/dL 0.70 - 1.30 mg/dL [facility] eGFR, CKD-EPI, Male 86 - PINF [facility] Comment on above: Reported eGFR is bas ed on the CKD-EPI 2020 equation using creatinine, age, and sex. Glucose [Mass/Vol] 95 mg/dL 70 - 99 mg/dL [facility] Osmolality Calc [Osmolality] 293 [facility] Potassium [Moles/Vol] 4.0 mmol/L 3.5 - 5.0 mmol/L [facility] Sodium [Moles/Vol] 139 mmol/L 135 - 145 mmol/L [facility] Urea nitrogen [Mass/Vol] 19 mg/dL 7 - 25 mg/dL [facility] Urea nitrogen/Creatinine [Mass ratio] 18 mg/mg [facility] Anion gap [Moles/Vol] 11 mmol/L Normal 7-17 [facility] Comment on above: Performed By: #### C A, MGO, CHM7, HFP, IPB ####[facility] (DEFAULT)[address] [place] [address] Chloride [Moles/Vol] 108 mmol/L Normal 98-108 [facility] Comment on above: Performed By: #### C A, MGO, CHM7, HFP, IPB ####[facility] (DEFAULT)[address] [place] [address] CO2 [Moles/Vol] 24 mmol/L Normal 21-31 [facility] Comment on above: Performed By: #### C A, MGO, CHM7, HFP, IPB ####[facility] (DEFAULT)[address] [place] [address] Creatinine [Mass/Vol] 1.04 mg/dL Normal 0.70-1.30 [facility] Comment on above: Performed By: #### C A, MGO, CHM7, HFP, IPB ####[facility] (DEFAULT)[address] [place] [address] GFR/1.73 sq M.predicted among non-blacks MDRD (S/P/Bld) [Vol rate/Area] 86 mL/min/{1.73_m2} Normal >=60 [facility] Comment on above: Result Comment: Repo rted eGFR is based on the CKD-EPI 2020 equation using creatinine, age, and sex. Performed By: #### C A, MGO, CHM7, HFP, IPB ####[facility] (DEFAULT)[address] [place] [address] Glucose [Mass/Vol] 95 mg/dL Normal 70-99 [facility] Comment on above: Performed By: #### C A, MGO, CHM7, HFP, IPB ####[facility] (DEFAULT)[address] [place] [address] Osmolality [Osmolality] 293 mosm/kg Normal 278-305 [facility] Comment on above: Performed By: #### C A, MGO, CHM7, HFP, IPB ####[facility] (DEFAULT)[address] [place] [address] Potassium [Moles/Vol] 4.0 mmol/L Normal 3.5-5.0 [facility] Comment on above: Performed By: #### C A, MGO, CHM7, HFP, IPB ####[facility] (DEFAULT)[address] [place] [address] Sodium [Moles/Vol] 139 mmol/L Normal 135-145 [facility] Comment on above: Performed By: #### C A, MGO, CHM7, HFP, IPB ####[facility] (DEFAULT)[address] [place] [address] Urea nitrogen [Mass/Vol] 19 mg/dL Normal 7-25 [facility] Comment on above: Performed By: #### C A, MGO, CHM7, HFP, IPB ####[facility] (DEFAULT)[address] [place] [address] Urea nitrogen/Creatinine [Mass ratio] 18 mg/mg Normal [facility] Comment on above: Performed By: #### C A, MGO, CHM7, HFP, IPB ####[facility] (DEFAULT)[address] [place] [address] D-DIMER,QUANTITATIVEOrdered By: Shaji Kelly on 01-16-2024 Fibrin D-dimer FEU (PPP) [Mass/Vol] 0.67 High NINF [facility] Comment on above: The D-Dimer assay is intended for use in conjuction with a clinical pretest probability (PTP) assessment model to exclude pulmonary embolism (PE) and as an aid in the diagnosis of Deep Vein Thrombosis (DVT) in outpatients suspected of PE or DVT. For the assay in use at [facility] ([facility]), a cutoff of <0.50 mcg/mL has a Negative Predictive Value of 99.7% for exclusion of DVT in low and moderate PTP patients. Interpretation and review of laboratory results Abnormal [facility] D-DIMER,QUANTITATIVEon 01-16 D-Dimer, High Sensitivity 0.67 mcg/mL FEU High <0.50 [facility] Comment on above: Result Comment: The D-Dimer assay is intended for use in conjuction with a clinical pretest probability (PTP) assessment model to exclude pulmonary embolism (PE) and as an aid in the diagnosis of Deep Vein Thrombosis (DVT) in outpatients suspected of PE or DVT. For the assay in use at [facility] ([facility]), a cutoff of <0.50 mcg/mL has a Negative Predictive Value of 99.7% for exclusion of DVT in low and moderate PTP patients. Performed By: #### P TPTT, HSDDI ####[facility] (DEFAULT)[address] [place] [address] HEPATIC FUNCTION PANELon Albumin [Mass/Vol] 3.7 g/dL 3.5 - 5.0 g/dL [facility] ALP [Catalytic activity/Vol] 70 U/L 32 - 126 U/L [facility] ALT [Catalytic activity/Vol] 8 U/L Low 10 - 52 U/L [facility] AST [Catalytic activity/Vol] 21 U/L 10 - 39 U/L [facility] Bilirubin [Mass/Vol] 1.9 mg/dL High NINF - 1.5 mg/dL [facility] Bilirubin.direct [Mass/Vol] 0.4 mg/dL High NINF - 0.3 mg/dL [facility] Protein [Mass/Vol] 6.1 g/dL Low 6.4 - 8.3 g/dL [facility] Albumin [Mass/Vol] 3.7 g/dL Normal 3.5-5.0 [facility] Comment on above: Performed By: #### C A, MGO, CHM7, HFP, IPB ####[facility] (DEFAULT)[address] [place] [address] ALP [Catalytic activity/Vol] 70 U/L Normal 32-126 [facility] Comment on above: Performed By: #### C A, MGO, CHM7, HFP, IPB ####[facility] (DEFAULT)[address] [place] [address] ALT [Catalytic activity/Vol] 8 U/L Low 10-52 [facility] Comment on above: Performed By: #### C A, MGO, CHM7, HFP, IPB ####[facility] (DEFAULT)[address] [place] [address] AST [Catalytic activity/Vol] 21 U/L Normal 10-39 [facility] Comment on above: Performed By: #### C A, MGO, CHM7, HFP, IPB ####[facility] (DEFAULT)[address] [place] [address] Bilirubin [Mass/Vol] 1.9 mg/dL High <1.5 [facility] Comment on above: Performed By: #### C A, MGO, CHM7, HFP, IPB ####[facility] (DEFAULT)[address] [place] [address] Bilirubin.indirect [Mass/Vol] 0.4 mg/dL High <0.3 [facility] Comment on above: Performed By: #### C A, MGO, CHM7, HFP, IPB ####[facility] (DEFAULT)[address] [place] [address] Protein [Mass/Vol] 6.1 g/dL Low 6.4-8.3 [facility] Comment on above: Performed By: #### Chinedu Feliz, MGO, CHM7, HFP, IPB ####[facility] (DEFAULT)[address] [place] [address] MAGNESIUMon 01-16-2024 Magnesium [Mass/Vol] 1.7 mg/dL 1.6 - 2 .6 mg/dL [facility] Magnesium [Mass/Vol] 1.7 mg/dL Normal 1.6-2.6 [facility] Comment on above: Performed By: #### Chinedu Feliz MGO, CHM7, HFP, IPB ####[facility] (DEFAULT)[address] [place] [id number] No Panel Informationon 01-16 Interpretation and review of laboratory results Abnormal [facility] Interpretation and review of laboratory results Normal [facility] PHOSPHATE, INORGANICon 01-16 Phosphate [Mass/Vol] 4.1 mg/dL 2.2 - 4 .6 mg/dL [facility] Phosphorous 4.1 mg/dL Normal 2.2-4.6 [facility] Comment on above: Performed By: #### C Tray, MGO, CHM7, HFP, IPB ####[facility] (DEFAULT)[address] [place] [address] PT,INR,PTTon 01-16-2024 aPTT Coag (PPP) [Time] 29.6 s [facility] INR Coag (Bld) [Relative time] 1.2 {INR} High 0.9 - 1.1 [facility] Interpretation and review of laboratory results Abnormal [facility] PT Coag (PPP) [Time] 14.9 s High [facility] aPTT Coag (Bld) [Time] 29.6 s Normal 24.0-34.3 [facility] Comment on above: Performed By: #### P TPTT, HSDDI ####[facility] (DEFAULT)[address] [place] [address] INR Coag (PPP) [Relative time] 1.2 {INR} High 0.9-1.1 [facility] Comment on above: Performed By: #### P TPTT, HSDDI ####[facility] (DEFAULT)[address] [place] [address] PT Coag (PPP) [Time] 14.9 s High 11.9-14.2 [facility] Comment on above: Performed By: #### P TPTT, HSDDI ####[facility] (DEFAULT)[address] [facility] [place] [address] TACROLIMUS LEVEL, TROUGH ([place] E DRUG LEVEL)Ordered By: Jimy Castillo on 01-16-2024 Interpretation and review of laboratory results Normal [facility] Tacrolimus (Bld) [Mass/Vol] 5.7 ng/mL Bone Marrow Transplant: 4.0-12.0, Therapeutic: 5.0-15.0 [facility] Method performed is a chemiluminescent microparticle immunoasssay on the [employer] i2000. The range is based on experience at [facility] and users should be aware that target concentrations vary widely depending on concomitant therapy, time post-transplant, and desired degree of immunosuppression. [facility] TACROLIMUS LEVEL, TROUGH ([place] E DRUG LEVEL)on 01-16-2024 Tacrolimus, Trough 5.7 ng/mL Normal [facility] Susana ow Transplant: 4.0-12.0, Therapeutic: 5.0-15.0 [facility] Comment on above: Order Comment: Pleas e draw at specified interval PRIOR to dose. Do not hold dose to wait for level. Specimens batched twice per day, (M-F) and once per day weekendsMethod performed is a chemiluminescent microparticle immunoasssay on the [employer] Files i2000.The range is based on experience at [facility] and users should be aware that target concentrations vary widely depending on concomitant therapy, time post-transplant, and desired degree of immunosuppression. Performed By: #### T ACRO ####[facility] (DEFAULT)[address] [place] [address] US ABDOMEN LIVER DOPPLERon 0 01-16-2024 US ABDOMEN LIVER DOPPLER Normal [facility] US.doppler Abdominal vessels on 01-16-2024 IMPRESSION: [...] pleural effusion. Trace right upper quadrant ascites. [facility] Radiology Study observation (narrative) [facility] US.doppler Abdominal vessels Ordered By: Iona Duran on 01-16-2024 [facility] Work Phone: XR CHEST PA AND LATERAL 2 EWSon 01-16-2024 XR CHEST PA AND LATERAL 2 VIEWS Normal [facility] XR Chest PA and Lateralon IMPRESSION: [...] Normal IMPRESSION IMPRESSION: Moderate right pleural effusion. [facility] Radiology Study observation (narrative) [facility] XR Chest PA and LateralOrder ed By: Daisha Patterson on 01-16-2024 [facility] Work Phone: ALL CBC WITH AUTO DIFFon BASOPHILS ABSOLUTE AUTO 0.0 [facility] Basophils/100 WBC (Bld) 0.5 % 0.2 - 2.0 % [facility] Eosinophils/100 WBC (Bld) 2.8 % 0.9 - 7.0 % [facility] Erythrocyte distribution width (RBC) [Ratio] 13.8 % 11.0 - 15.0 % [facility] Hematocrit (Bld) [Volume fraction] 43.7 % 42.0 - 54.0 % [facility] Hemoglobin (Bld) [Mass/Vol] 14.0 g/dL 14.0 - 18.0 g/dL [facility] IMMATURE GRANULOCYTES ABS AUTO 0.01 [facility] Immature granulocytes/100 WBC (Bld) 0.3 % 0.0 - 0.5 % [facility] LYMPHOCYTES ABSOLUTE [facility]O [facility] Lymphocytes/[facility] WBC (Bld) 37.5 % 20.5 - 60.0 % [facility] MCH (RBC) [Entitic mass] 28.4 pg 25.9 - 34.0 pg [facility] MCHC (RBC) [Mass/Vol] 32.0 g/dL 29.9 - 35.2 g/dL [facility] MCV (RBC) [Entitic vol] 88.6 fL 80.0 - 94.0 fL [facility] MONOCYTES ABSOLUTE AUTO 0.5 [facility] Monocytes/100 WBC (Bld) 11.9 % 1.7 - 12.0 % [facility] NEUTROPHILS ABSOLUTE AUTO 1.9 [facility] Neutrophils/100 WBC (Bld) 47.0 % 43.0 - 75.0 % [facility] Platelet mean volume (Bld) [Entitic vol] 10.3 fL 9.5 - 13.5 fL [facility] PLT 180 [facility] RBC 4.93 [facility] WBC 4.0 [facility] ALL CBC WITH AUTO DIFFon BASOPHILS ABSOLUTE AUTO 0.0 [facility] Basophils/100 WBC (Bld) 0.5 % 0.2 - 2.0 % [facility] Eosinophils/100 WBC (Bld) 2.6 % 0.9 - 7.0 % [facility] Erythrocyte distribution width (RBC) [Ratio] 13.5 % 11.0 - 15.0 % [facility] Hematocrit (Bld) [Volume fraction] 43.8 % 42.0 - 54.0 % [facility] Hemoglobin (Bld) [Mass/Vol] 14.0 g/dL 14.0 - 18.0 g/dL [facility] IMMATURE GRANULOCYTES ABS AUTO 0.00 [facility] Immature granulocytes/100 WBC (Bld) 0.0 % 0.0 - 0.5 % [facility] Interpretation and review of laboratory results Abnormal [facility] LYMPHOCYTES ABSOLUTE AUTO 1.8 [facility] Lymphocytes/100 WBC (Bld) 45.2 % 20.5 - 60.0 % [facility] MCH (RBC) [Entitic mass] 27.9 pg 25.9 - 34.0 pg [facility] MCHC (RBC) [Mass/Vol] 32.0 g/dL 29.9 - 35.2 g/dL [facility] MCV (RBC) [Entitic vol] 87.4 fL 80.0 - 94.0 fL [facility] MONOCYTES ABSOLUTE AUTO 0.4 [facility] Monocytes/100 WBC (Bld) 9.6 % 1.7 - 12.0 % [facility] NEUTROPHILS ABSOLUTE AUTO 1.6 [facility] Neutrophils/100 WBC (Bld) 42.1 % Low 43.0 - 75.0 % [facility] Platelet mean volume (Bld) [Entitic vol] 9.8 fL 9.5 - 13.5 fL [facility] TBH EO # 0.1 [facility] TB PLT 180 [facility] RBC 5.01 [facility] WBC 3.9 Low [facility] CHEM 7 (LYTES,BUN,CREA,GLUC) on 09-11-2023 Anion gap [Moles/Vol] 13 mmol/L 7 - 17 mmol/L [facility] Chloride [Moles/Vol] 111 mmol/L High 98 - 10 8 mmol/L [facility] CO2 [Moles/Vol] 20 mmol/L Low 21 - 31 mmol/L [facility] Creatinine [Mass/Vol] 1.13 mg/dL 0.70 - 1.30 mg/dL [facility] eGFR, CKD-EPI, Male 78 - PINF [facility] Glucose [Mass/Vol] 109 mg/dL High 70 - 99 mg/dL [facility] Interpretation and review of laboratory results Abnormal [facility] Osmolality Calc [Osmolality] 295 [facility] Potassium [Moles/Vol] 4.3 mmol/L 3.5 - 5.0 mmol/L [facility] Sodium [Moles/Vol] 140 mmol/L 135 - 145 mmol/L [facility] Urea nitrogen [Mass/Vol] 16 mg/dL 7 - 25 mg/dL [facility] Urea nitrogen/Creatinine [Mass ratio] 14 mg/mg [facility] Anion gap [Moles/Vol] 13 mmol/L Normal 7-17 [facility] Comment on above: Performed By: #### NATHANIEL RAMÍREZ ####[facility] (DEFAULT)[address] [place] [address] Chloride [Moles/Vol] 111 mmol/L High 98-108 [facility] Comment on above: Performed By: #### TJ RAMÍREZ7 ####[facility] (DEFAULT)[address] [place] [address] CO2 [Moles/Vol] 20 mmol/L Low 21-31 [facility] Comment on above: Performed By: #### TJ RAMÍREZ7 ####[facility] (DEFAULT)[address] [place] [address] Creatinine [Mass/Vol] 1.13 mg/dL Normal 0.70-1.30 [facility] Comment on above: Performed By: #### TJ RAMÍREZ7 ####[facility] (DEFAULT)[address] [place] [address] GFR/1.73 sq M.predicted among non-blacks MDRD (S/P/Bld) [Vol rate/Area] 78 mL/min/{1.73_m2} Normal >=60 [facility] Comment on above: Result Comment: Repo rted eGFR is based on the CKD-EPI 2020 equation using creatinine, age, and sex. Performed By: #### TJ RAMÍREZ7 ####[facility] (DEFAULT)[address] [facility] [place] [address] Glucose [Mass/Vol] 109 mg/dL High 70-99 [facility] Comment on above: Performed By: #### Rod BLOOM CHM7 ####[facility] (DEFAULT)[address] [facility] [place] [address] Osmolality [Osmolality] 295 mosm/kg Normal 278-305 [facility] Comment on above: Performed By: #### TJ RAMÍREZ7 ####[facility] (DEFAULT)[address] [place] [address] Potassium [Moles/Vol] 4.3 mmol/L Normal 3.5-5.0 [facility] Comment on above: Performed By: #### Rod BLOOM CHM7 ####[facility] (DEFAULT)[address] [place] [address] Sodium [Moles/Vol] 140 mmol/L Normal 135-145 [facility] Comment on above: Performed By: #### TJ RAMÍREZ7 ####[facility] (DEFAULT)[address] [place] [place] [address] Urea nitrogen [Mass/Vol] 16 mg/dL Normal 7-25 [facility] Comment on above: Performed By: #### TJ RAMÍREZ7 ####[facility] (DEFAULT)[address] [facility] [place] [address] Urea nitrogen/Creatinine [Mass ratio] 14 mg/mg Normal [facility] Comment on above: Performed By: #### TJ RAMÍREZ7 ####[facility] (DEFAULT)[address] [place] [address] GLUCOSE POCon 09-11-2023 Glucose [Mass/Vol] 108 mg/dL High 70 - 99 mg/dL [facility] Interpretation and review of laboratory results Abnormal [facility] POC Sample Type CAPBL [facility] Legionella sp identified Org specific cx Nom (Unsp spec)on 09-11-2023 Bacteria identified Cx Nom (Unsp spec) NO GROWTH DAY 7 OF 7 [facility] MAGNESIUMon 09-11-2023 Interpretation and review of laboratory results Normal [facility] Magnesium [Mass/Vol] 1.6 mg/dL 1.6 - 2 .6 mg/dL [facility] Magnesium [Mass/Vol] 1.6 mg/dL Normal 1.6-2.6 [facility] Comment on above: Performed By: #### NATHANIEL RAMÍREZ ####[facility] (DEFAULT)[address] [facility] [place] [address] No Panel Informationon 09-11 [facility] TACROLIMUS LEVEL, TROUGH (AZ E DRUG LEVEL)on 09-11-2023 Interpretation and review of laboratory results Normal [facility] Tacrolimus (Bld) [Mass/Vol] 11.5 ng/mL [facility] Tacrolimus, Trough 11.5 ng/mL Normal Bone Susana ow Transplant: 4.0-12.0, Therapeutic: 5.0-15.0 [facility] Comment on above: Order Comment: Dilan gregory draw at specified interval PRIOR to dose. Do not hold dose to wait for level. Specimens batched twice per day, (M-F) and once per day weekendsMethod performed is a chemiluminescent microparticle immunoasssay on the [employer] Files i2000.The range is based on experience at [facility] and users should be aware that target concentrations vary widely depending on concomitant therapy, time post-transplant, and desired degree of immunosuppression. Performed By: #### T ACRO ####[facility] (DEFAULT)[address] [place] [address] CBC,PLATELETSon 09-10-2023 Erythrocyte distribution width (RBC) [Ratio] 13.9 % 10.9 - 14.3 % [facility] Hematocrit (Bld) [Volume fraction] 40.0 % 39.6 - 48.8 % [facility] Hemoglobin (Bld) [Mass/Vol] 12.7 g/dL Low 13.4 - 16.8 g/dL [facility] Interpretation and review of laboratory results Abnormal [facility] MCH (RBC) [Entitic mass] 27.3 pg 26.1 - 33.3 pg [facility] MCHC (RBC) [Mass/Vol] 31.8 g/dL Low 31.9 - 36.5 g/dL [facility] MCV (RBC) [Entitic vol] 86.0 fL 79.0 - 94.5 fL [facility] Platelet mean volume (Bld) [Entitic vol] 9.5 fL 8.7 - 12.3 fL [facility] Platelets (Bld) [#/Vol] 225 10*3/uL 146 - 337 K/uL [facility] RBC (Bld) [#/Vol] 4.65 10*6/uL [facility] WBC (Bld) [#/Vol] 6.52 10*3/uL 3.73 - 10. 10 K/uL [facility] Hematocrit (Bld) [Volume fraction] 40.0 % Normal 39.6-48.8 [facility] Comment on above: Performed By: #### H EMOGC ####[facility] (DEFAULT)[address] [facility] [place] [address] Hemoglobin (Bld) [Mass/Vol] 12.7 g/dL Low 13.4-16.8 [facility] Comment on above: Performed By: #### H EMOGC ####[facility] (DEFAULT)[address] [facility] [place] [address] MCV (RBC) [Entitic vol] 86.0 fL Normal 79.0-94.5 [facility] Comment on above: Performed By: #### H EMOGC ####[facility] (DEFAULT)[address] [place] [place] [address] Mean Cell Hgb 27.3 pg Normal 26.1-33.3 [facility] Comment on above: Performed By: #### H EMOGC ####[facility] (DEFAULT)[address] [place] [place] [address] Mean Cell Hgb Conc 31.8 g/dL Low 31.9-36.5 [facility] Comment on above: Performed By: #### H EMOGC ####[facility] (DEFAULT)[address] [facility] [place] [address] Platelet mean volume (Bld) [Entitic vol] 9.5 fL Normal 8.7-12.3 [facility] Comment on above: Performed By: #### H EMOGC ####[facility] (DEFAULT)[address] [facility] [place] [address] Platelets (Bld) [#/Vol] 225 10*3/uL Normal 146-337 [facility] Comment on above: Performed By: #### H EMOGC ####[facility] (DEFAULT)[address] [place] [address] RBC (Bld) [#/Vol] 4.65 10*6/uL Normal 4.38-5.83 [facility] Comment on above: Performed By: #### H [facility] ####[facility] (DEFAULT)[address] [place] [address] RBC Distribution 13.9 % Normal 10.9-14.3 [facility] Comment on above: Performed By: #### H [facility] ####[facility] (DEFAULT)[address] [place] [address] WBC (Bld) [#/Vol] 6.52 10*3/uL Normal 3.73-10.10 [facility] Comment on above: Performed By: #### H [facility] ####[facility] (DEFAULT)[address] [place] [address] CHEM 7 (LYTES,BUN,CREA,GLUC) on 09-10-2023 Anion gap [Moles/Vol] 13 mmol/L 7 - 17 mmol/L [facility] Chloride [Moles/Vol] 111 mmol/L High 98 - 10 8 mmol/L [facility] CO2 [Moles/Vol] 20 mmol/L Low 21 - 31 mmol/L [facility] Creatinine [Mass/Vol] 1.27 mg/dL 0.70 - 1.30 mg/dL [facility] eGFR, CKD-EPI, Male 68 - PINF [facility] Glucose [Mass/Vol] 100 mg/dL High 70 - 99 mg/dL [facility] Osmolality Calc [Osmolality] 293 [facility] Potassium [Moles/Vol] 4.4 mmol/L 3.5 - 5.0 mmol/L [facility] Sodium [Moles/Vol] 140 mmol/L 135 - 145 mmol/L [facility] Urea nitrogen [Mass/Vol] 12 mg/dL 7 - 25 mg/dL [facility] Urea nitrogen/Creatinine [Mass ratio] 9 mg/mg [facility] Anion gap [Moles/Vol] 13 mmol/L Normal 7-17 [facility] Comment on above: Performed By: #### NATHANIEL RAMÍREZ, HFP ####[facility] (DEFAULT)[address] [place] [address] Chloride [Moles/Vol] 111 mmol/L High 98-108 [facility] Comment on above: Performed By: #### NATHANIEL RAMÍREZ, HFP ####[facility] (DEFAULT)[address] [facility] [place] [address] CO2 [Moles/Vol] 20 mmol/L Low 21-31 [facility] Comment on above: Performed By: #### NATHANIEL RAMÍREZ, HFP ####[facility] (DEFAULT)[address] [facility] [place] [address] Creatinine [Mass/Vol] 1.27 mg/dL Normal 0.70-1.30 [facility] Comment on above: Performed By: #### NATHANIEL RAMÍREZ, HFP ####[facility] (DEFAULT)[address] [facility] [place] [address] GFR/1.73 sq M.predicted among non-blacks MDRD (S/P/Bld) [Vol rate/Area] 68 mL/min/{1.73_m2} Normal >=60 [facility] Comment on above: Result Comment: Repo rted eGFR is based on the CKD-EPI 2020 equation using creatinine, age, and sex. Performed By: #### NATHANIEL RAMÍREZ, HFP ####[facility] (DEFAULT)[address] [facility] [place] [address] Glucose [Mass/Vol] 100 mg/dL High 70-99 [facility] Comment on above: Performed By: #### NATHANIEL RAMÍREZ, HFP ####[facility] (DEFAULT)[address] [facility] [place] [address] Osmolality [Osmolality] 293 mosm/kg Normal 278-305 [facility] Comment on above: Performed By: #### TJ RAMÍREZ7, HFP ####[facility] (DEFAULT)[address] [place] [address] Potassium [Moles/Vol] 4.4 mmol/L Normal 3.5-5.0 [facility] Comment on above: Performed By: #### NATHANIEL RAMÍREZ, HFP ####[facility] (DEFAULT)[address] [place] [address] Sodium [Moles/Vol] 140 mmol/L Normal 135-145 [facility] Comment on above: Performed By: #### NATHANIEL RAMÍREZ, HFP ####[facility] (DEFAULT)[address] [place] [address] Urea nitrogen [Mass/Vol] 12 mg/dL Normal 7-25 [facility] Comment on above: Performed By: #### NATHANIEL RAMÍREZ, HFP ####[facility] (DEFAULT)[address] [place] [address] Urea nitrogen/Creatinine [Mass ratio] 9 mg/mg Normal [facility] Comment on above: Performed By: #### NATHANIEL RAMÍREZ, HFP ####[facility] (DEFAULT)[address] [place] [address] HEPATIC FUNCTION PANELon Albumin [Mass/Vol] 3.3 g/dL Low 3.5 - 5.0 g/dL [facility] ALP [Catalytic activity/Vol] 143 U/L High 32 - 126 U/L [facility] ALT [Catalytic activity/Vol] 28 U/L 10 - 52 U/L [facility] AST [Catalytic activity/Vol] 29 U/L 10 - 39 U/L [facility] Bilirubin [Mass/Vol] 0.9 mg/dL [facility] mg/dL [facility] Bilirubin.direct [Mass/Vol] 0.2 mg/dL NINF - 0.3 mg/dL [facility] Protein [Mass/Vol] 6.8 g/dL 6.4 - 8.3 g/dL [facility] Albumin [Mass/Vol] 3.3 g/dL Low 3.5-5.0 [facility] Comment on above: Performed By: #### M MERLE CHM7, HFP ####[facility] (DEFAULT)[address] [place] [address] ALP [Catalytic activity/Vol] 143 U/L High 32-126 [facility] Comment on above: Performed By: #### M HELEN BLOOMM7, HFP ####[facility] (DEFAULT)[address] [place] [address] ALT [Catalytic activity/Vol] 28 U/L Normal 10-52 [facility] Comment on above: Performed By: #### Rod BLOOM CHM7, HFP ####[facility] (DEFAULT)[address] [place] [address] AST [Catalytic activity/Vol] 29 U/L Normal 10-39 [facility] Comment on above: Performed By: #### Rod BLOOM CHM7, HFP ####[facility] (DEFAULT)[address] [place] [address] Bilirubin [Mass/Vol] 0.9 mg/dL Normal <1.5 [facility] Comment on above: Performed By: #### Rod BLOOM CHM7, HFP ####[facility] (DEFAULT)[address] [place] [address] Bilirubin.indirect [Mass/Vol] 0.2 mg/dL Normal <0.3 [facility] Comment on above: Performed By: #### Rod BLOOM CHM7, HFP ####[facility] (DEFAULT)[address] [place] [address] Protein [Mass/Vol] 6.8 g/dL Normal 6.4-8.3 [facility] Comment on above: Performed By: #### M HELEN BLOOMM7, HFP ####[facility] (DEFAULT)[address] [place] [address] MAGNESIUMon 09-10-2023 Interpretation and review of laboratory results Normal [facility] Magnesium [Mass/Vol] 1.9 mg/dL 1.6 - 2 .6 mg/dL [facility] Magnesium [Mass/Vol] 1.9 mg/dL Normal 1.6-2.6 [facility] Comment on above: Performed By: #### M HELEN BLOOMM7, HFP ####[facility] (DEFAULT)[address] [place] [address] No Panel Informationon 09-10 Interpretation and review of laboratory results Abnormal [facility] TACROLIMUS LEVEL, TROUGH (AZ E DRUG LEVEL)Ordered By: Jimy Castillo on 09-10-2023 Interpretation and review of laboratory results Normal [facility] Tacrolimus (Bld) [Mass/Vol] 11.8 ng/mL [facility] TACROLIMUS LEVEL, TROUGH (AZ E DRUG LEVEL)on 09-10-2023 Tacrolimus, Trough 11.8 ng/mL Normal Bone Susana ow Transplant: 4.0-12.0, Therapeutic: 5.0-15.0 [facility] Comment on above: Order Comment: Pleas e draw at specified interval PRIOR to dose. Do not hold dose to wait for level. Specimens batched twice per day, (M-F) and once per day weekendsMethod performed is a chemiluminescent microparticle immunoasssay on the [employer] i2000.The range is based on experience at [facility] and users should be aware that target concentrations vary widely depending on concomitant therapy, time post-transplant, and desired degree of immunosuppression. Performed By: #### T ACRO ####[facility] (DEFAULT)[address] [place] [address] CHEM 7 (LYTES,BUN,CREA,GLUC) on 09-09-2023 Anion gap [Moles/Vol] 14 mmol/L 7 - 17 mmol/L [facility] Chloride [Moles/Vol] 113 mmol/L High 98 - 10 8 mmol/L [facility] CO2 [Moles/Vol] 18 mmol/L Low 21 - 31 mmol/L [facility] Creatinine [Mass/Vol] 1.03 mg/dL 0.70 - 1.30 mg/dL [facility] eGFR, CKD-EPI, Male 87 - PINF [facility] Glucose [Mass/Vol] 106 mg/dL High 70 - 99 mg/dL [facility] Interpretation and review of laboratory results Abnormal [facility] Osmolality Calc [Osmolality] 294 [facility] Potassium [Moles/Vol] 4.0 mmol/L 3.5 - 5.0 mmol/L [facility] Sodium [Moles/Vol] 141 mmol/L 135 - 145 mmol/L [facility] Urea nitrogen [Mass/Vol] 10 mg/dL 7 - 25 mg/dL [facility] Urea nitrogen/Creatinine [Mass ratio] 10 mg/mg [facility] Anion gap [Moles/Vol] 14 mmol/L Normal 7-17 [facility] Comment on above: Performed By: #### NATHANIEL RAMÍREZ, IPB ####[facility] (DEFAULT)[address] [place] [address] Chloride [Moles/Vol] 113 mmol/L High 98-108 [facility] Comment on above: Performed By: #### NATHANIEL RAMÍREZ, IPB ####[facility] (DEFAULT)[address] [facility] [place] [address] CO2 [Moles/Vol] 18 mmol/L Low 21-31 [facility] Comment on above: Performed By: #### NATHANIEL RAMÍREZ, IPB ####[facility] (DEFAULT)[address] [place] [address] Creatinine [Mass/Vol] 1.03 mg/dL Normal 0.70-1.30 [facility] Comment on above: Performed By: #### NATHANIEL RAMÍREZ, IPB ####[facility] (DEFAULT)[address] [place] [address] GFR/1.73 sq M.predicted among non-blacks MDRD (S/P/Bld) [Vol rate/Area] 87 mL/min/{1.73_m2} Normal >=60 [facility] Comment on above: Result Comment: Repo rted eGFR is based on the CKD-EPI 2020 equation using creatinine, age, and sex. Performed By: #### NATHANIEL RAMÍREZ, IPB ####[facility] (DEFAULT)[address] [facility] [place] [address] Glucose [Mass/Vol] 106 mg/dL High 70-99 [facility] Comment on above: Performed By: #### NATHANIEL RAMÍREZ, IPB ####[facility] (DEFAULT)[address] [facility] [place] [address] Osmolality [Osmolality] 294 mosm/kg Normal 278-305 [facility] Comment on above: Performed By: #### NATHANIEL RAMÍREZ, IPB ####[facility] (DEFAULT)[address] [place] [address] Potassium [Moles/Vol] 4.0 mmol/L Normal 3.5-5.0 [facility] Comment on above: Performed By: #### NATHANIEL RAMÍREZ, IPB ####[facility] (DEFAULT)[address] [place] [address] Sodium [Moles/Vol] 141 mmol/L Normal 135-145 [facility] Comment on above: Performed By: #### NATHANIEL RAMÍREZ, IPB ####[facility] (DEFAULT)[address] [place] [address] Urea nitrogen [Mass/Vol] 10 mg/dL Normal 7-25 [facility] Comment on above: Performed By: #### NATHANIEL RAMÍREZ, IPB ####[facility] (DEFAULT)[address] [facility] [place] [address] Urea nitrogen/Creatinine [Mass ratio] 10 mg/mg Normal [facility] Comment on above: Performed By: #### NATHANIEL RAMÍREZ, JO ANN ####[facility] (DEFAULT)[address] [place] [address] MAGNESIUMon 09-09-2023 Magnesium [Mass/Vol] 1.6 mg/dL 1.6 - 2 .6 mg/dL [facility] Magnesium [Mass/Vol] 1.6 mg/dL Normal 1.6-2.6 [facility] Comment on above: Performed By: #### NATHANIEL RAMÍREZ, JO ANN ####[facility] (DEFAULT)[address] [place] [address] No Panel Informationon 09-09 Interpretation and review of laboratory results Normal [facility] PHOSPHATE, INORGANICon 09-09 Phosphate [Mass/Vol] 3.8 mg/dL 2.2 - 4 .6 mg/dL [facility] Phosphorous 3.8 mg/dL Normal 2.2-4.6 [facility] Comment on above: Performed By: #### NATHANIEL RAMÍREZ, JO ANN ####[facility] (DEFAULT)[address] [place] [id number] TACROLIMUS LEVEL, TROUGH (AZ E DRUG LEVEL)on 09-09-2023 Interpretation and review of laboratory results Normal [facility] Tacrolimus (Bld) [Mass/Vol] 9.2 ng/mL [facility] Tacrolimus, Trough 9.2 ng/mL Normal Bone Susana ow Transplant: 4.0-12.0, Therapeutic: 5.0-15.0 [facility] Comment on above: Order Comment: Pleas e draw at specified interval PRIOR to dose. Do not hold dose to wait for level. Specimens batched twice per day, (M-F) and once per day weekendsMethod performed is a chemiluminescent microparticle immunoasssay on the [employer] i2000.The range is based on experience at [facility] and users should be aware that target concentrations vary widely depending on concomitant therapy, time post-transplant, and desired degree of immunosuppression. Performed By: #### T ACRO ####[facility] (DEFAULT)[address] [place] [address] CBC,PLATELETSon 09-08-2023 Erythrocyte distribution width (RBC) [Ratio] 13.6 % 10.9 - 14.3 % [facility] Hematocrit (Bld) [Volume fraction] 36.1 % Low 39.6 - 48.8 % [facility] Hemoglobin (Bld) [Mass/Vol] 11.6 g/dL Low 13.4 - 16.8 g/dL [facility] Interpretation and review of laboratory results Abnormal [facility] MCH (RBC) [Entitic mass] 27.4 pg 26.1 - 33.3 pg [facility] MCHC (RBC) [Mass/Vol] 32.1 g/dL 31.9 - 36.5 g/dL [facility] MCV (RBC) [Entitic vol] 85.1 fL 79.0 - 94.5 fL [facility] Platelet mean volume (Bld) [Entitic vol] 9.5 fL 8.7 - 12.3 fL [facility] Platelets (Bld) [#/Vol] 182 10*3/uL 146 - 337 K/uL [facility] RBC (Bld) [#/Vol] 4.24 10*6/uL Low [facility] WBC (Bld) [#/Vol] 4.59 10*3/uL 3.73 - 10. 10 K/uL [facility] Hematocrit (Bld) [Volume fraction] 36.1 % Low 39.6-48.8 [facility] Comment on above: Performed By: #### [facility] [place] [address] Hemoglobin (Bld) [Mass/Vol] 11.6 g/dL Low 13.4-16.8 [facility] Comment on above: Performed By: #### H EMOGC ####[facility] (DEFAULT)[address] [place] [address] MCV (RBC) [Entitic vol] 85.1 fL Normal 79.0-94.5 [facility] Comment on above: Performed By: #### H EMOGC ####[facility] (DEFAULT)[address] [place] [address] Mean Cell Hgb 27.4 pg Normal 26.1-33.3 [facility] Comment on above: Performed By: #### H EMOGC ####[facility] (DEFAULT)[address] [place] [address] Mean Cell Hgb Conc 32.1 g/dL Normal 31.9-36.5 [facility] Comment on above: Performed By: #### H EMOGC ####[facility] (DEFAULT)[address] [place] [address] Platelet mean volume (Bld) [Entitic vol] 9.5 fL Normal 8.7-12.3 [facility] Comment on above: Performed By: #### H EMOGC ####[facility] (DEFAULT)[address] [place] [address] Platelets (Bld) [#/Vol] 182 10*3/uL Normal 146-337 [facility] Comment on above: Performed By: #### H EMOGC ####[facility] (DEFAULT)[address] [place] [address] RBC (Bld) [#/Vol] 4.24 10*6/uL Low 4.38-5.83 [facility] Comment on above: Performed By: #### H EMOGC ####[facility] (DEFAULT)[address] [facility] [place] [address] RBC Distribution 13.6 % Normal 10.9-14.3 [facility] Comment on above: Performed By: #### H [facility] ####[facility] (DEFAULT)[address] [place] [address] WBC (Bld) [#/Vol] 4.59 10*3/uL Normal 3.73-10.10 [facility] Comment on above: Performed By: #### H [facility] ####[facility] (DEFAULT)[address] [place] [address] CHEM 7 (LYTES,BUN,CREA,GLUC) on 09-08-2023 Anion gap [Moles/Vol] 12 mmol/L 7 - 17 mmol/L [facility] Chloride [Moles/Vol] 113 mmol/L High 98 - 10 8 mmol/L [facility] CO2 [Moles/Vol] 21 mmol/L 21 - 31 mmol/L [facility] Creatinine [Mass/Vol] 1.14 mg/dL 0.70 - 1.30 mg/dL [facility] eGFR, CKD-EPI, Male 77 - PINF [facility] Glucose [Mass/Vol] 107 mg/dL High 70 - 99 mg/dL [facility] Osmolality Calc [Osmolality] 296 [facility] Potassium [Moles/Vol] 3.9 mmol/L 3.5 - 5.0 mmol/L [facility] Sodium [Moles/Vol] 142 mmol/L 135 - 145 mmol/L [facility] Urea nitrogen [Mass/Vol] 11 mg/dL 7 - 25 mg/dL [facility] Urea nitrogen/Creatinine [Mass ratio] 10 mg/mg [facility] Anion gap [Moles/Vol] 12 mmol/L Normal 7-17 [facility] Comment on above: Performed By: #### M GO, CHM7, HFP, IPB ####[facility] (DEFAULT)[address] [place] [address] Chloride [Moles/Vol] 113 mmol/L High 98-108 [facility] Comment on above: Performed By: #### M MERLE CHM7, HFP, IPB ####[facility] (DEFAULT)[address] [place] [address] CO2 [Moles/Vol] 21 mmol/L Normal 21-31 [facility] Comment on above: Performed By: #### M MERLE CHM7, HFP, IPB ####[facility] (DEFAULT)[address] [place] [address] Creatinine [Mass/Vol] 1.14 mg/dL Normal 0.70-1.30 [facility] Comment on above: Performed By: #### M HELEN BLOOMMJessica, HFP, IPB ####[facility] (DEFAULT)[address] [facility] [place] [address] GFR/1.73 sq M.predicted among non-blacks MDRD (S/P/Bld) [Vol rate/Area] 77 mL/min/{1.73_m2} Normal >=60 [facility] Comment on above: Result Comment: Repo rted eGFR is based on the CKD-EPI 2020 equation using creatinine, age, and sex. Performed By: #### M HELEN BLOOMM7, HFP, IPB ####[facility] (DEFAULT)[address] [facility] [place] [address] Glucose [Mass/Vol] 107 mg/dL High 70-99 [facility] Comment on above: Performed By: #### Rod BLOOM CHM7, HFP, IPB ####[facility] (DEFAULT)[address] [place] [address] Osmolality [Osmolality] 296 mosm/kg Normal 278-305 [facility] Comment on above: Performed By: #### M MERLE CHM7, HFP, IPB ####[facility] (DEFAULT)[address] [place] [address] Potassium [Moles/Vol] 3.9 mmol/L Normal 3.5-5.0 [facility] Comment on above: Performed By: #### M MERLE, CHM7, HFP, IPB ####[facility] (DEFAULT)[address] [facility] [place] [address] Sodium [Moles/Vol] 142 mmol/L Normal 135-145 [facility] Comment on above: Performed By: #### M MERLE, CHM7, HFP, IPB ####[facility] (DEFAULT)[address] [facility] [place] [address] Urea nitrogen [Mass/Vol] 11 mg/dL Normal 7-25 [facility] Comment on above: Performed By: #### M MERLE, CHM7, HFP, IPB ####[facility] (DEFAULT)[address] [facility] [place] [address] Urea nitrogen/Creatinine [Mass ratio] 10 mg/mg Normal [facility] Comment on above: Performed By: #### M MERLE, CHM7, HFP, IPB ####[facility] (DEFAULT)[address] [place] [place] [address] HEPATIC FUNCTION PANELon Albumin [Mass/Vol] 2.9 g/dL Low 3.5 - 5.0 g/dL [facility] ALP [Catalytic activity/Vol] 133 U/L High 32 - 126 U/L [facility] ALT [Catalytic activity/Vol] 23 U/L 10 - 52 U/L [facility] AST [Catalytic activity/Vol] 23 U/L 10 - 39 U/L [facility] Bilirubin [Mass/Vol] 0.8 mg/dL NINF - 1.5 mg/dL [facility] Bilirubin.direct [Mass/Vol] 0.2 mg/dL NINF - 0.3 mg/dL [facility] Protein [Mass/Vol] 5.9 g/dL Low 6.4 - 8.3 g/dL [facility] Albumin [Mass/Vol] 2.9 g/dL Low 3.5-5.0 [facility] Comment on above: Performed By: #### M MERLE, CHM7, HFP, IPB ####[facility] (DEFAULT)[address] [place] [address] ALP [Catalytic activity/Vol] 133 U/L High 32-126 [facility] Comment on above: Performed By: #### M GO, CHM7, HFP, IPB ####[facility] (DEFAULT)[address] [place] [address] ALT [Catalytic activity/Vol] 23 U/L Normal 10-52 [facility] Comment on above: Performed By: #### M GO, CHM7, HFP, IPB ####[facility] (DEFAULT)[address] [place] [address] AST [Catalytic activity/Vol] 23 U/L Normal 10-39 [facility] Comment on above: Performed By: #### M GO, CHM7, HFP, IPB ####[facility] (DEFAULT)[address] [place] [address] Bilirubin [Mass/Vol] 0.8 mg/dL Normal <1.5 [facility] Comment on above: Performed By: #### M GO, CHM7, HFP, IPB ####[facility] (DEFAULT)[address] [place] [address] Bilirubin.indirect [Mass/Vol] 0.2 mg/dL Normal <0.3 [facility] Comment on above: Performed By: #### M GO, CHM7, HFP, IPB ####[facility] (DEFAULT)[address] [place] [address] Protein [Mass/Vol] 5.9 g/dL Low 6.4-8.3 [facility] Comment on above: Performed By: #### M GO, CHM7, HFP, IPB ####[facility] (DEFAULT)[address] [place] [address] MAGNESIUMon 09-08-2023 Interpretation and review of laboratory results Normal [facility] Magnesium [Mass/Vol] 1.8 mg/dL 1.6 - 2 .6 mg/dL [facility] Magnesium [Mass/Vol] 1.8 mg/dL Normal 1.6-2.6 [facility] Comment on above: Performed By: #### M NATHANIEL BLOOM, HFP, IPB ####[facility] (DEFAULT)[address] [place] [address] No Panel Informationon 09-08 Interpretation and review of laboratory results Abnormal [facility] PHOSPHATE, INORGANICon 09-08 Interpretation and review of laboratory results Normal [facility] Phosphate [Mass/Vol] 4.1 mg/dL 2.2 - 4 .6 mg/dL [facility] Phosphorous 4.1 mg/dL Normal 2.2-4.6 [facility] Comment on above: Performed By: #### M NATHANIEL BLOOM, HFP, IPB ####[facility] (DEFAULT)[address] [place] [address] TACROLIMUS LEVEL, TROUGH (AZ E DRUG LEVEL)on 09-08-2023 Interpretation and review of laboratory results Normal [facility] Tacrolimus (Bld) [Mass/Vol] 8.5 ng/mL [facility] Tacrolimus, Trough 8.5 ng/mL Normal Bone Susana ow Transplant: 4.0-12.0, Therapeutic: 5.0-15.0 [facility] Comment on above: Order Comment: Pleas e draw at specified interval PRIOR to dose. Do not hold dose to wait for level. Specimens batched twice per day, (M-) and once per day weekendsMethod performed is a chemiluminescent microparticle immunoasssay on the [employer] Files i2000.The range is based on experience at [facility] and users should be aware that target concentrations vary widely depending on concomitant therapy, time post-transplant, and desired degree of immunosuppression. Performed By: #### T ACRO ####[facility] (DEFAULT)[address] [place] [address] CBC,PLATELETSon 09-07-2023 Erythrocyte distribution width (RBC) [Ratio] 13.5 % 10.9 - 14.3 % [facility] Hematocrit (Bld) [Volume fraction] 37.1 % Low 39.6 - 48.8 % [facility] Hemoglobin (Bld) [Mass/Vol] 11.9 g/dL Low 13.4 - 16.8 g/dL [facility] Interpretation and review of laboratory results Abnormal [facility] MCH (RBC) [Entitic mass] 27.7 pg 26.1 - 33.3 pg [facility] MCHC (RBC) [Mass/Vol] 32.1 g/dL 31.9 - 36.5 g/dL [facility] MCV (RBC) [Entitic vol] 86.5 fL 79.0 - 94.5 fL [facility] Platelet mean volume (Bld) [Entitic vol] 9.6 fL 8.7 - 12.3 fL [facility] Platelets (Bld) [#/Vol] 176 10*3/uL 146 - 337 K/uL [facility] RBC (Bld) [#/Vol] 4.29 10*6/uL Low [facility] WBC (Bld) [#/Vol] 4.10 10*3/uL 3.73 - 10. 10 K/uL [facility] Hematocrit (Bld) [Volume fraction] 37.1 % Low 39.6-48.8 [facility] Comment on above: Performed By: #### H [facility] ####[facility] (DEFAULT)[address] [place] [address] Hemoglobin (Bld) [Mass/Vol] 11.9 g/dL Low 13.4-16.8 [facility] Comment on above: Performed By: #### H [facility] ####[facility] (DEFAULT)[address] [place] [address] MCV (RBC) [Entitic vol] 86.5 fL Normal 79.0-94.5 [facility] Comment on above: Performed By: #### H EMOGC ####[facility] (DEFAULT)[address] [place] [address] Mean Cell Hgb 27.7 pg Normal 26.1-33.3 [facility] Comment on above: Performed By: #### H EMOGC ####[facility] (DEFAULT)[address] [facility] [place] [address] Mean Cell Hgb Conc 32.1 g/dL Normal 31.9-36.5 [facility] Comment on above: Performed By: #### H EMOGC ####[facility] (DEFAULT)[address] [facility] [place] [address] Platelet mean volume (Bld) [Entitic vol] 9.6 fL Normal 8.7-12.3 [facility] Comment on above: Performed By: #### H EMOGC ####[facility] (DEFAULT)[address] [facility] [place] [address] Platelets (Bld) [#/Vol] 176 10*3/uL Normal 146-337 [facility] Comment on above: Performed By: #### H EMOGC ####[facility] (DEFAULT)[address] [place] [address] RBC (Bld) [#/Vol] 4.29 10*6/uL Low 4.38-5.83 [facility] Comment on above: Performed By: #### H EMOGC ####[facility] (DEFAULT)[address] [facility] [place] [address] RBC Distribution 13.5 % Normal 10.9-14.3 [facility] Comment on above: Performed By: #### H EMOGC ####[facility] (DEFAULT)[address] [facility] [place] [address] WBC (Bld) [#/Vol] 4.10 10*3/uL Normal 3.73-10.10 [facility] Comment on above: Performed By: #### H [facility] ####[facility] (DEFAULT)[address] [place] [address] CHEM 7 (LYTES,BUN,CREA,GLUC) on 09-07-2023 Anion gap [Moles/Vol] 13 mmol/L 7 - 17 mmol/L [facility] Chloride [Moles/Vol] 113 mmol/L High 98 - 10 8 mmol/L [facility] CO2 [Moles/Vol] 19 mmol/L Low 21 - 31 mmol/L [facility] Creatinine [Mass/Vol] 1.22 mg/dL 0.70 - 1.30 mg/dL [facility] eGFR, CKD-EPI, Male 71 - PINF [facility] Glucose [Mass/Vol] 107 mg/dL High 70 - 99 mg/dL [facility] Osmolality Calc [Osmolality] 295 [facility] Potassium [Moles/Vol] 3.9 mmol/L 3.5 - 5.0 mmol/L [facility] Sodium [Moles/Vol] 141 mmol/L 135 - 145 mmol/L [facility] Urea nitrogen [Mass/Vol] 13 mg/dL 7 - 25 mg/dL [facility] Urea nitrogen/Creatinine [Mass ratio] 11 mg/mg [facility] Anion gap [Moles/Vol] 13 mmol/L Normal 7-17 [facility] Comment on above: Performed By: #### M NATHANIEL BLOOM, HFP, IPB ####[facility] (DEFAULT)[address] [place] [address] Chloride [Moles/Vol] 113 mmol/L High 98-108 [facility] Comment on above: Performed By: #### M HELEN BLOOMM7, HFP, IPB ####[facility] (DEFAULT)[address] [place] [address] CO2 [Moles/Vol] 19 mmol/L Low 21-31 [facility] Comment on above: Performed By: #### Rod BLOOM CHM7, HFP, IPB ####[facility] (DEFAULT)[address] [place] [address] Creatinine [Mass/Vol] 1.22 mg/dL Normal 0.70-1.30 [facility] Comment on above: Performed By: #### Rod BLOOM CHM7, HFP, IPB ####[facility] (DEFAULT)[address] [facility] [place] [address] GFR/1.73 sq M.predicted among non-blacks MDRD (S/P/Bld) [Vol rate/Area] 71 mL/min/{1.73_m2} Normal >=60 [facility] Comment on above: Result Comment: Repo rted eGFR is based on the CKD-EPI 2020 equation using creatinine, age, and sex. Performed By: #### Rod BLOOM CHMJessica, HFP, IPB ####[facility] (DEFAULT)[address] [facility] [place] [address] Glucose [Mass/Vol] 107 mg/dL High 70-99 [facility] Comment on above: Performed By: #### Rod BLOOM CHM7, HFP, IPB ####[facility] (DEFAULT)[address] [facility] [place] [address] Osmolality [Osmolality] 295 mosm/kg Normal 278-305 [facility] Comment on above: Performed By: #### Rod BLOOM CHM7, HFP, IPB ####U [facility] (DEFAULT)[address] [facility] [place] [address] Potassium [Moles/Vol] 3.9 mmol/L Normal 3.5-5.0 [facility] Comment on above: Performed By: #### Rod BLOOM CHM7, HFP, IPB ####[facility] (DEFAULT)[address] [place] [address] Sodium [Moles/Vol] 141 mmol/L Normal 135-145 [facility] Comment on above: Performed By: #### M MERLE, CHM7, HFP, IPB ####[facility] (DEFAULT)[address] [facility] [place] [address] Urea nitrogen [Mass/Vol] 13 mg/dL Normal 7-25 [facility] Comment on above: Performed By: #### M MERLE, CHM7, HFP, IPB ####[facility] (DEFAULT)[address] [facility] [place] [address] Urea nitrogen/Creatinine [Mass ratio] 11 mg/mg Normal [facility] Comment on above: Performed By: #### M MERLE, CHM7, HFP, IPB ####[facility] (DEFAULT)[address] [place] [address] HEPATIC FUNCTION PANELon Albumin [Mass/Vol] 2.9 g/dL Low 3.5 - 5.0 g/dL [facility] ALP [Catalytic activity/Vol] 111 U/L 32 - 126 U/L [facility] ALT [Catalytic activity/Vol] 18 U/L 10 - 52 U/L [facility] AST [Catalytic activity/Vol] 23 U/L 10 - 39 U/L [facility] Bilirubin [Mass/Vol] 0.8 mg/dL [facility] mg/dL [facility] Bilirubin.direct [Mass/Vol] 0.3 mg/dL High NINF - 0.3 mg/dL [facility] Protein [Mass/Vol] 6.0 g/dL Low 6.4 - 8.3 g/dL [facility] Albumin [Mass/Vol] 2.9 g/dL Low 3.5-5.0 [facility] Comment on above: Performed By: #### M GO, CHM7, HFP, IPB ####[facility] (DEFAULT)[address] [facility] [place] [address] ALP [Catalytic activity/Vol] 111 U/L Normal 32-126 [facility] Comment on above: Performed By: #### M GO, CHM7, HFP, IPB ####[facility] (DEFAULT)[address] [place] [address] ALT [Catalytic activity/Vol] 18 U/L Normal 10-52 [facility] Comment on above: Performed By: #### M GO, CHM7, HFP, IPB ####[facility] (DEFAULT)[address] [place] [address] AST [Catalytic activity/Vol] 23 U/L Normal 10-39 [facility] Comment on above: Performed By: #### M GO, CHM7, HFP, IPB ####[facility] (DEFAULT)[address] [place] [address] Bilirubin [Mass/Vol] 0.8 mg/dL Normal <1.5 [facility] Comment on above: Performed By: #### M GO, CHM7, HFP, IPB ####[facility] (DEFAULT)[address] [place] [address] Bilirubin.indirect [Mass/Vol] 0.3 mg/dL High <0.3 [facility] Comment on above: Performed By: #### M GO, CHM7, HFP, IPB ####[facility] (DEFAULT)[address] [place] [address] Protein [Mass/Vol] 6.0 g/dL Low 6.4-8.3 [facility] Comment on above: Performed By: #### M GO, CHM7, HFP, IPB ####[facility] (DEFAULT)[address] [place] [address] MAGNESIUMon 09-07-2023 Interpretation and review of laboratory results Normal [facility] Magnesium [Mass/Vol] 1.7 mg/dL 1.6 - 2 .6 mg/dL [facility] Magnesium [Mass/Vol] 1.7 mg/dL Normal 1.6-2.6 [facility] Comment on above: Performed By: #### M NATHANIEL BLOOM, HFP, IPB ####[facility] (DEFAULT)[address] [place] [address] No Panel Informationon 09-07 Interpretation and review of laboratory results Abnormal [facility] PHOSPHATE, INORGANICon 09-07 Interpretation and review of laboratory results Normal [facility] Phosphate [Mass/Vol] 4.4 mg/dL 2.2 - 4 .6 mg/dL [facility] Phosphorous 4.4 mg/dL Normal 2.2-4.6 [facility] Comment on above: Performed By: #### M NATHANIEL BLOOM, HFP, IPB ####[facility] (DEFAULT)[address] [place] [address] TACROLIMUS LEVEL, TROUGH (AZ E DRUG LEVEL)Ordered By: Elizabeth Maldonado on 09-07-2023 Interpretation and review of laboratory results Normal [facility] Tacrolimus (Bld) [Mass/Vol] 7.8 ng/mL [facility] TACROLIMUS LEVEL, TROUGH (AZ E DRUG LEVEL)on 09-07-2023 Tacrolimus, Trough 7.8 ng/mL Normal Bone Susana ow Transplant: 4.0-12.0, Therapeutic: 5.0-15.0 [facility] Comment on above: Order Comment: Pleas e draw at specified interval PRIOR to dose. Do not hold dose to wait for level. Specimens batched twice per day, (M-F) and once per day weekendsMethod performed is a chemiluminescent microparticle immunoasssay on the [employer] i2000.The range is based on experience at [facility] and users should be aware that target concentrations vary widely depending on concomitant therapy, time post-transplant, and desired degree of immunosuppression. Performed By: #### T ACRO ####[facility] (DEFAULT)[address] [place] [address] CBC,PLATELETSon 09-06-2023 Erythrocyte distribution width (RBC) [Ratio] 13.4 % 10.9 - 14.3 % [facility] Hematocrit (Bld) [Volume fraction] 38.4 % Low 39.6 - 48.8 % [facility] Hemoglobin (Bld) [Mass/Vol] 11.9 g/dL Low 13.4 - 16.8 g/dL [facility] Interpretation and review of laboratory results Abnormal [facility] MCH (RBC) [Entitic mass] 26.6 pg 26.1 - 33.3 pg [facility] MCHC (RBC) [Mass/Vol] 31.0 g/dL Low 31.9 - 36.5 g/dL [facility] MCV (RBC) [Entitic vol] 85.9 fL 79.0 - 94.5 fL [facility] Platelet mean volume (Bld) [Entitic vol] 9.7 fL 8.7 - 12.3 fL [facility] Platelets (Bld) [#/Vol] 181 10*3/uL 146 - 337 K/uL [facility] RBC (Bld) [#/Vol] 4.47 10*6/uL [facility] WBC (Bld) [#/Vol] 4.41 10*3/uL 3.73 - 10. 10 K/uL [facility] Hematocrit (Bld) [Volume fraction] 38.4 % Low 39.6-48.8 [facility] Comment on above: Performed By: #### H [facility] ####[facility] (DEFAULT)[address] [place] [address] Hemoglobin (Bld) [Mass/Vol] 11.9 g/dL Low 13.4-16.8 [facility] Comment on above: Performed By: #### H [facility] ####[facility] (DEFAULT)[address] [place] [address] MCV (RBC) [Entitic vol] 85.9 fL Normal 79.0-94.5 [facility] Comment on above: Performed By: #### H [facility] ####[facility] (DEFAULT)[address] [place] [address] Mean Cell Hgb 26.6 pg Normal 26.1-33.3 [facility] Comment on above: Performed By: #### H EMOGC ####[facility] (DEFAULT)[address] [place] [address] Mean Cell Hgb Conc 31.0 g/dL Low 31.9-36.5 [facility] Comment on above: Performed By: #### H EMOGC ####[facility] (DEFAULT)[address] [place] [address] Platelet mean volume (Bld) [Entitic vol] 9.7 fL Normal 8.7-12.3 [facility] Comment on above: Performed By: #### H EMO ####[facility] (DEFAULT)[address] [place] [address] Platelets (Bld) [#/Vol] 181 10*3/uL Normal 146-337 [facility] Comment on above: Performed By: #### H EMOGC ####[facility] (DEFAULT)[address] [place] [address] RBC (Bld) [#/Vol] 4.47 10*6/uL Normal 4.38-5.83 [facility] Comment on above: Performed By: #### H EMOGC ####[facility] (DEFAULT)[address] [place] [address] RBC Distribution 13.4 % Normal 10.9-14.3 [facility] Comment on above: Performed By: #### H EMOGC ####[facility] (DEFAULT)[address] [place] [address] WBC (Bld) [#/Vol] 4.41 10*3/uL Normal 3.73-10.10 [facility] Comment on above: Performed By: #### H EMOGC ####[facility] (DEFAULT)[address] [place] [address] CHEM 7 (LYTES,BUN,CREA,GLUC) on 09-06-2023 Anion gap [Moles/Vol] 14 mmol/L 7 - 17 mmol/L [facility] Chloride [Moles/Vol] 109 mmol/L High 98 - 10 8 mmol/L [facility] CO2 [Moles/Vol] 19 mmol/L Low 21 - 31 mmol/L [facility] Creatinine [Mass/Vol] 1.26 mg/dL 0.70 - 1.30 mg/dL [facility] eGFR, CKD-EPI, Male 69 - [facility]F [facility] Glucose [Mass/Vol] 114 mg/dL High 70 - 99 mg/dL [facility] Osmolality Calc [Osmolality] 291 [facility] Potassium [Moles/Vol] 4.1 mmol/L 3.5 - 5.0 mmol/L [facility] Sodium [Moles/Vol] 138 mmol/L 135 - 145 mmol/L [facility] Urea nitrogen [Mass/Vol] 16 mg/dL 7 - 25 mg/dL [facility] Urea nitrogen/Creatinine [Mass ratio] 13 mg/mg [facility] Anion gap [Moles/Vol] 14 mmol/L Normal 7-17 [facility] Comment on above: Performed By: #### NATHANIEL RAMÍREZ, HFP ####[facility] (DEFAULT)[address] [place] [address] Chloride [Moles/Vol] 109 mmol/L High 98-108 [facility] Comment on above: Performed By: #### TJ RAMÍREZ7, HFP ####[facility] (DEFAULT)[address] [place] [address] CO2 [Moles/Vol] 19 mmol/L Low 21-31 [facility] Comment on above: Performed By: #### Rod BLOOM CHM7, HFP ####[facility] (DEFAULT)[address] [place] [address] Creatinine [Mass/Vol] 1.26 mg/dL Normal 0.70-1.30 [facility] Comment on above: Performed By: #### NATHANIEL RAMÍREZ, HFP ####[facility] (DEFAULT)[address] [place] [address] GFR/1.73 sq M.predicted among non-blacks MDRD (S/P/Bld) [Vol rate/Area] 69 mL/min/{1.73_m2} Normal >=60 [facility] Comment on above: Result Comment: Repo rted eGFR is based on the CKD-EPI 2020 equation using creatinine, age, and sex. Performed By: #### NATHANIEL RAMÍREZ, HFP ####[facility] (DEFAULT)[address] [facility] [place] [address] Glucose [Mass/Vol] 114 mg/dL High 70-99 [facility] Comment on above: Performed By: #### NATHANIEL RAMÍREZ, HFP ####[facility] (DEFAULT)[address] [place] [address] Osmolality [Osmolality] 291 mosm/kg Normal 278-305 [facility] Comment on above: Performed By: #### NATHANIEL RAMÍREZ, HFP ####[facility] (DEFAULT)[address] [place] [address] Potassium [Moles/Vol] 4.1 mmol/L Normal 3.5-5.0 [facility] Comment on above: Performed By: #### NATHANIEL RAMÍREZ, HFP ####[facility] (DEFAULT)[address] [place] [address] Sodium [Moles/Vol] 138 mmol/L Normal 135-145 [facility] Comment on above: Performed By: #### NATHANIEL RAMÍREZ, HFP ####[facility] (DEFAULT)[address] [place] [address] Urea nitrogen [Mass/Vol] 16 mg/dL Normal 7-25 [facility] Comment on above: Performed By: #### M NATHANIEL BLOOM, HFP ####[facility] (DEFAULT)[address] [place] [address] Urea nitrogen/Creatinine [Mass ratio] 13 mg/mg Normal [facility] Comment on above: Performed By: #### M NATHANIEL BLOOM, HFP ####[facility] (DEFAULT)[address] [place] [address] HEPATIC FUNCTION PANELon Albumin [Mass/Vol] 3.0 g/dL Low 3.5 - 5.0 g/dL [facility] ALP [Catalytic activity/Vol] 115 U/L 32 - 126 U/L [facility] ALT [Catalytic activity/Vol] 25 U/L 10 - 52 U/L [facility] AST [Catalytic activity/Vol] 31 U/L 10 - 39 U/L [facility] Bilirubin [Mass/Vol] 1.0 mg/dL [facility] mg/dL [facility] Bilirubin.direct [Mass/Vol] 0.3 mg/dL High NINF - 0.3 mg/dL [facility] Protein [Mass/Vol] 6.3 g/dL Low 6.4 - 8.3 g/dL [facility] Albumin [Mass/Vol] 3.0 g/dL Low 3.5-5.0 [facility] Comment on above: Performed By: #### M NATHANIEL BLOOM, HFP ####[facility] (DEFAULT)[address] [facility] [place] [address] ALP [Catalytic activity/Vol] 115 U/L Normal 32-126 [facility] Comment on above: Performed By: #### NATHANIEL RAMÍREZ, HFP ####[facility] (DEFAULT)[address] [facility] [place] [address] ALT [Catalytic activity/Vol] 25 U/L Normal 10-52 [facility] Comment on above: Performed By: #### M NATHANIEL BLOOM, HFP ####[facility] (DEFAULT)[address] [place] [address] AST [Catalytic activity/Vol] 31 U/L Normal 10-39 [facility] Comment on above: Performed By: #### NATHANIEL RAMÍREZ, HFP ####[facility] (DEFAULT)[address] [place] [address] Bilirubin [Mass/Vol] 1.0 mg/dL Normal <1.5 [facility] Comment on above: Performed By: #### NATHANIEL RAMÍREZ, HFP ####[facility] (DEFAULT)[address] [facility] [place] [address] Bilirubin.indirect [Mass/Vol] 0.3 mg/dL High <0.3 [facility] Comment on above: Performed By: #### NATHANIEL RAMÍREZ, HFP ####[facility] (DEFAULT)[address] [facility] [place] [address] Protein [Mass/Vol] 6.3 g/dL Low 6.4-8.3 [facility] Comment on above: Performed By: #### NATHANIEL RAMÍREZ, HFP ####[facility] (DEFAULT)[address] [facility] [place] [address] MAGNESIUMon 09-06-2023 Interpretation and review of laboratory results Normal [facility] Magnesium [Mass/Vol] 2.0 mg/dL 1.6 - 2 .6 mg/dL [facility] Magnesium [Mass/Vol] 2.0 mg/dL Normal 1.6-2.6 [facility] Comment on above: Performed By: #### NATHANIEL RAMÍREZ, HFP ####[facility] (DEFAULT)[address] [facility] [place] [address] No Panel Informationon 09-06 Interpretation and review of laboratory results Abnormal [facility] TACROLIMUS LEVEL, TROUGH (AZ E DRUG LEVEL)on 09-06-2023 Interpretation and review of laboratory results Normal [facility] Tacrolimus (Bld) [Mass/Vol] 6.7 ng/mL [facility] Tacrolimus, Trough 6.7 ng/mL Normal Bone Susana ow Transplant: 4.0-12.0, Therapeutic: 5.0-15.0 [facility] Comment on above: Order Comment: Pleas e draw at specified interval PRIOR to dose. Do not hold dose to wait for level. Specimens batched twice per day, (M-F) and once per day weekendsMethod performed is a chemiluminescent microparticle immunoasssay on the [employer] i2000.The range is based on experience at [facility] and users should be aware that target concentrations vary widely depending on concomitant therapy, time post-transplant, and desired degree of immunosuppression. Performed By: #### T ACRO ####[facility] (DEFAULT)[address] [place] [address] CBC,PLATELETSon 09-05-2023 Erythrocyte distribution width (RBC) [Ratio] 13.5 % 10.9 - 14.3 % [facility] Hematocrit (Bld) [Volume fraction] 35.6 % Low 39.6 - 48.8 % [facility] Hemoglobin (Bld) [Mass/Vol] 11.4 g/dL Low 13.4 - 16.8 g/dL [facility] Interpretation and review of laboratory results Abnormal [facility] MCH (RBC) [Entitic mass] 27.5 pg 26.1 - 33.3 pg [facility] MCHC (RBC) [Mass/Vol] 32.0 g/dL 31.9 - 36.5 g/dL [facility] MCV (RBC) [Entitic vol] 86.0 fL 79.0 - 94.5 fL [facility] Platelet mean volume (Bld) [Entitic vol] 10.0 fL 8.7 - 12.3 fL [facility] Platelets (Bld) [#/Vol] 170 10*3/uL 146 - 337 K/uL [facility] RBC (Bld) [#/Vol] 4.14 10*6/uL Low [facility] WBC (Bld) [#/Vol] 4.24 10*3/uL 3.73 - 10. 10 K/uL [facility] Hematocrit (Bld) [Volume fraction] 35.6 % Low 39.6-48.8 [facility] Comment on above: Performed By: #### H EMOGC ####[facility] (DEFAULT)[address] [place] [place] [address] Hemoglobin (Bld) [Mass/Vol] 11.4 g/dL Low 13.4-16.8 [facility] Comment on above: Performed By: #### H EMOGC ####[facility] (DEFAULT)[address] [facility] [place] [address] MCV (RBC) [Entitic vol] 86.0 fL Normal 79.0-94.5 [facility] Comment on above: Performed By: #### H EMOGC ####[facility] (DEFAULT)[address] [facility] [place] [address] Mean Cell Hgb 27.5 pg Normal 26.1-33.3 [facility] Comment on above: Performed By: #### H EMOGC ####[facility] (DEFAULT)[address] [place] [place] [address] Mean Cell Hgb Conc 32.0 g/dL Normal 31.9-36.5 [facility] Comment on above: Performed By: #### H EMOGC ####[facility] (DEFAULT)[address] [place] [place] [address] Platelet mean volume (Bld) [Entitic vol] 10.0 fL Normal 8.7-12.3 [facility] Comment on above: Performed By: #### H EMOGC ####[facility] (DEFAULT)[address] [place] [place] [address] Platelets (Bld) [#/Vol] 170 10*3/uL Normal 146-337 [facility] Comment on above: Performed By: #### H [facility] ####[facility] (DEFAULT)[address] [place] [address] RBC (Bld) [#/Vol] 4.14 10*6/uL Low 4.38-5.83 [facility] Comment on above: Performed By: #### H [facility] ####[facility] (DEFAULT)[address] [place] [address] RBC Distribution 13.5 % Normal 10.9-14.3 [facility] Comment on above: Performed By: #### H [facility] ####[facility] (DEFAULT)[address] [place] [address] WBC (Bld) [#/Vol] 4.24 10*3/uL Normal 3.73-10.10 [facility] Comment on above: Performed By: #### H [facility] ####[facility] (DEFAULT)[address] [place] [address] CHEM 7 (LYTES,BUN,CREA,GLUC) on 09-05-2023 Anion gap [Moles/Vol] 12 mmol/L 7 - 17 mmol/L [facility] Chloride [Moles/Vol] 107 mmol/L 98 - 10 8 mmol/L [facility] CO2 [Moles/Vol] 20 mmol/L Low 21 - 31 mmol/L [facility] Creatinine [Mass/Vol] 1.43 mg/dL High 0.70 - 1.30 mg/dL [facility] eGFR, CKD-EPI, Male 60 Low - PINF [facility] Glucose [Mass/Vol] 111 mg/dL High 70 - 99 mg/dL [facility] Osmolality Calc [Osmolality] 286 [facility] Potassium [Moles/Vol] 4.2 mmol/L 3.5 - 5.0 mmol/L [facility] Sodium [Moles/Vol] 135 mmol/L 135 - 145 mmol/L [facility] Urea nitrogen [Mass/Vol] 18 mg/dL 7 - 25 mg/dL [facility] Urea nitrogen/Creatinine [Mass ratio] 13 mg/mg [facility] Anion gap [Moles/Vol] 12 mmol/L Normal 7-17 [facility] Comment on above: Performed By: #### NATHANIEL RAMÍREZ, HFP ####[facility] (DEFAULT)[address] [facility] [place] [address] Chloride [Moles/Vol] 107 mmol/L Normal 98-108 [facility] Comment on above: Performed By: #### NATHANIEL RAMÍREZ, HFP ####[facility] (DEFAULT)[address] [facility] [place] [address] CO2 [Moles/Vol] 20 mmol/L Low 21-31 [facility] Comment on above: Performed By: #### NATHANIEL RAMÍREZ, HFP ####[facility] (DEFAULT)[address] [facility] [place] [address] Creatinine [Mass/Vol] 1.43 mg/dL High 0.70-1.30 [facility] Comment on above: Performed By: #### NATHANIEL RAMÍREZ, HFP ####[facility] (DEFAULT)[address] [place] [address] GFR/1.73 sq M.predicted among non-blacks MDRD (S/P/Bld) [Vol rate/Area] 59 mL/min/{1.73_m2} Low >=60 [facility] Comment on above: Result Comment: Repo rted eGFR is based on the CKD-EPI 2020 equation using creatinine, age, and sex. Performed By: #### NATHANIEL RAMÍREZ, HFP ####[facility] (DEFAULT)[address] [facility] [place] [address] Glucose [Mass/Vol] 111 mg/dL High 70-99 [facility] Comment on above: Performed By: #### NATHANIEL RAMÍREZ, HFP ####[facility] (DEFAULT)[address] [place] [address] Osmolality [Osmolality] 286 mosm/kg Normal 278-305 [facility] Comment on above: Performed By: #### NATHANIEL RAMÍREZ, HFP ####[facility] (DEFAULT)[address] [place] [address] Potassium [Moles/Vol] 4.2 mmol/L Normal 3.5-5.0 [facility] Comment on above: Performed By: #### NATHANIEL RAMÍREZ, HFP ####[facility] (DEFAULT)[address] [facility] [place] [address] Sodium [Moles/Vol] 135 mmol/L Normal 135-145 [facility] Comment on above: Performed By: #### NATHANIEL RAMÍREZ, HFP ####[facility] (DEFAULT)[address] [facility] [place] [address] Urea nitrogen [Mass/Vol] 18 mg/dL Normal 7-25 [facility] Comment on above: Performed By: #### NATHANIEL RAMÍREZ, HFP ####[facility] (DEFAULT)[address] [place] [address] Urea nitrogen/Creatinine [Mass ratio] 13 mg/mg Normal [facility] Comment on above: Performed By: #### TJ RAMÍREZ7, HFP ####[facility] (DEFAULT)[address] [place] [address] CONTINUOUS CARDIAC MONITORIN G STRIPon 09-05-2023 [facility] HEPATIC FUNCTION PANELon Albumin [Mass/Vol] 2.8 g/dL Low 3.5 - 5.0 g/dL [facility] ALP [Catalytic activity/Vol] 103 U/L 32 - 126 U/L [facility] ALT [Catalytic activity/Vol] 26 U/L 10 - 52 U/L [facility] AST [Catalytic activity/Vol] 38 U/L 10 - 39 U/L [facility] Bilirubin [Mass/Vol] 0.9 mg/dL NINF - 1.5 mg/dL [facility] Bilirubin.direct [Mass/Vol] 0.1 mg/dL NINF - 0.3 mg/dL [facility] Protein [Mass/Vol] 6.1 g/dL Low 6.4 - 8.3 g/dL [facility] Albumin [Mass/Vol] 2.8 g/dL Low 3.5-5.0 [facility] Comment on above: Performed By: #### M MERLE CHM7, HFP ####[facility] (DEFAULT)[address] [place] [address] ALP [Catalytic activity/Vol] 103 U/L Normal 32-126 [facility] Comment on above: Performed By: #### M MERLE CHM7, HFP ####[facility] (DEFAULT)[address] [place] [address] ALT [Catalytic activity/Vol] 26 U/L Normal 10-52 [facility] Comment on above: Performed By: #### M MERLE CHM7, HFP ####[facility] (DEFAULT)[address] [place] [address] AST [Catalytic activity/Vol] 38 U/L Normal 10-39 [facility] Comment on above: Performed By: #### M MERLE CHM7, HFP ####[facility] (DEFAULT)[address] [place] [address] Bilirubin [Mass/Vol] 0.9 mg/dL Normal <1.5 [facility] Comment on above: Performed By: #### M MERLE CHM7, HFP ####[facility] (DEFAULT)[address] [place] [address] Bilirubin.indirect [Mass/Vol] 0.1 mg/dL Normal <0.3 [facility] Comment on above: Performed By: #### M MERLE CHM7, HFP ####[facility] (DEFAULT)[address] [facility] [place] [address] Protein [Mass/Vol] 6.1 g/dL Low 6.4-8.3 [facility] Comment on above: Performed By: #### M NATHANIEL BLOOM, HFP ####[facility] (DEFAULT)[address] [place] [place] [address] HISTOPLASMA ANTIGEN, FLUIDon 09-05-2023 FH SOURCE BAL RML [facility] Histo FLD interpretation Negative [facility] Histoplasma Antigen, FLUID Not detected ng/mL [facility] HISTOPLASMA CAPSULATUM/BLAST OMYCES SPECIES,PCR FLUIDon 09-05-2023 HISTO/BLASTO RESULT Negative Not Applicable [facility] Specimen source Nom (Unsp spec) BAL RML [facility] IMMUNOPHENOTYPING, TISSUE/FL UIDon 09-05-2023 BKR DX CODE Use Ordering [facility] Flow Interpretation See Comment [facility] Flow Interpreted by: Yossi Perla MD, PhD [facility] MAGNESIUMon 09-05-2023 Interpretation and review of laboratory results Normal [facility] Magnesium [Mass/Vol] 1.7 mg/dL 1.6 - 2 .6 mg/dL [facility] Magnesium [Mass/Vol] 1.7 mg/dL Normal 1.6-2.6 [facility] Comment on above: Performed By: #### M NATHANIEL BLOOM, HFP ####[facility] (DEFAULT)[address] [place] [address] No Panel Informationon 09-05 Interpretation and review of laboratory results Abnormal [facility] TACROLIMUS LEVEL, TROUGH (AZ E DRUG LEVEL)Ordered By: Raymundo Mehta on 09-05-2023 Interpretation and review of laboratory results Normal [facility] Tacrolimus (Bld) [Mass/Vol] 5.3 ng/mL [facility] TACROLIMUS LEVEL, TROUGH (AZ E DRUG LEVEL)on 09-05-2023 Tacrolimus, Trough 5.3 ng/mL Normal Bone Susana ow Transplant: 4.0-12.0, Therapeutic: 5.0-15.0 [facility] Comment on above: Order Comment: Pleas e draw at specified interval PRIOR to dose. Do not hold dose to wait for level. Specimens batched twice per day, (M-F) and once per day weekendsMethod performed is a chemiluminescent microparticle immunoasssay on the [employer] i2000.The range is based on experience at [facility] and users should be aware that target concentrations vary widely depending on concomitant therapy, time post-transplant, and desired degree of immunosuppression. Performed By: #### T ACRO ####[facility] (DEFAULT)[address] [place] [address] ARTERIAL BLOOD GAS (FULL GOSS EL)on 09-04-2023 Base excess Calc (Bld) [Moles/Vol] -1.2000 mmol/L -3.0 - 3.0 mmol/L [facility] Calcium.ionized (Bld) [Mass/Vol] 4.79 mg/dL 4.60 - 5.30 mg/dL [facility] Carboxyhemoglobin (Bld) [Mass fraction] 0.7 % NINF - 1.5 % [facility] CO2 (Bld) [Partial pressure] 30 mm[Hg] Low [facility] Glucose [Mass/Vol] 159 mg/dL High 70 - 99 mg/dL [facility] HCO3 (Bld) [Moles/Vol] 22 mmol/L 22 - 28 mmol/L [facility] Hematocrit (Bld) [Volume fraction] 38.0 % Low 40.2 - 50.4 % [facility] Hemoglobin (Bld) [Mass/Vol] 12.6 g/dL Low 13.4 - 16.8 g/dL [facility] Interpretation and review of laboratory results Abnormal [facility] Lactate [Moles/Vol] 2.0 mmol/L High 0.5 - 1. 6 mmol/L [facility] Methemoglobin (Bld) [Mass fraction] 0.0 % NINF - 1.5 % [facility] Oxygen (Bld) [Partial pressure] 62 mm[Hg] Low [facility] Oxygen saturation in Blood 92 % Low 94 - 98 % [facility] Oxyhemoglobin 91 % Low 94 - 98 % [facility] pH (Bld) 7.48 [pH] High 7.35 - 7.45 [facility] Potassium [Moles/Vol] 4.2 mmol/L 3.5 - 5.0 mmol/L [facility] Sodium [Moles/Vol] 130 mmol/L Low 135 - 145 mmol/L [facility] Specimen source Nom (Unsp spec) Arterial [facility] Base Excess -1.2 mmol/L Normal -3.0-3.0 [facility] Comment on above: Performed By: #### Vale UNDERWOOD ####[facility] (DEFAULT)[address] [place] [address] Carboxyhemoglobin 0.7 % Normal <=1.5 [facility] Comment on above: Performed By: ###Walter UNDERWOOD ####[facility] (DEFAULT)[address] [place] [address] Glucose [Mass/Vol] 159 mg/dL High 70-99 [facility] Comment on above: Performed By: #### Vale UNDERWOOD ####[facility] (DEFAULT)[address] [facility] [place] [address] HCO3 (Bld) [Moles/Vol] 22 mmol/L Normal 22-28 [facility] Comment on above: Performed By: #### Vale UNDERWOOD ####[facility] (DEFAULT)[address] [place] [address] Hematocrit (Bld) [Volume fraction] 38.0 % Low 40.2-50.4 [facility] Comment on above: Performed By: #### Vale DAWNASHISH ####[facility] (DEFAULT)[address] [place] [address] Hemoglobin (Bld) [Mass/Vol] 12.6 g/dL Low 13.4-16.8 [facility] Comment on above: Performed By: #### G ASALL ####[facility] (DEFAULT)[address] [place] [address] Ionized Calcium, Whole Blood 4.79 mg/dL Normal 4.60-5.30 [facility] Comment on above: Performed By: #### G ASAASHISH ####[facility] (DEFAULT)[address] [place] [address] Lactate, Whole Blood 2.0 mmol/L High 0.5-1.6 [facility] Comment on above: Performed By: #### G ASAASHISH ####[facility] (DEFAULT)[address] [place] [address] Methemoglobin 0.0 % Normal <=1.5 [facility] Comment on above: Performed By: #### G YASMINE ####[facility] (DEFAULT)[address] [place] [address] Oxyhemoglobin 91 % Low 94-98 [facility] Comment on above: Performed By: #### G YASMINE ####[facility] (DEFAULT)[address] [place] [address] pCO2 30 mm Hg Low 32-48 [facility] Comment on above: Performed By: #### G ASAASHISH ####[facility] (DEFAULT)[address] [place] [address] pH (Bld) 7.48 [pH] High 7.35-7.45 [facility] Comment on above: Performed By: #### G ASAASHISH ####[facility] (DEFAULT)[address] [place] [address] pO2 62 mm Hg Low 83-108 [facility] Comment on above: Performed By: #### G ASALL ####[facility] [facility] [place] [address] Potassium [Moles/Vol] 4.2 mmol/L Normal 3.5-5.0 [facility] Comment on above: Performed By: #### G ASALL ####[facility] (DEFAULT)[address] [facility] [place] [address] sO2 92 % Low 94-98 [facility] Comment on above: Performed By: #### G ASALL ####[facility] (DEFAULT)[address] [facility] [place] [address] Sodium [Moles/Vol] 130 mmol/L Low 135-145 [facility] Comment on above: Performed By: #### G ASALL ####[facility] (DEFAULT)[address] [place] [address] Specimen type Nom (Spec) Arterial Normal [facility] Comment on above: Performed By: #### G ASALL ####[facility] (DEFAULT)[address] [place] [address] Bacteria identified Respirat ory culture Nom (Unsp spec)on 09-04-2023 Bacteria identified Cx Nom (Unsp spec) NO GROWTH DAY 2 [facility] 2 [facility] Microscopic observation Other stain Nom (Unsp spec) [facility]ocentrifuge [facility] Microscopic observation Other stain Nom (Unsp spec) Neutrophils, Rare [facility] Microscopic observation Other stain Nom (Unsp spec) Red Blood Cells Present [facility] Microscopic observation Other stain Nom (Unsp spec) No organisms seen [facility] Bacteria identified Respirat ory culture Nom (Unsp spec)Ordered By: Jose Salgado on 09-04-2023 Bacteria identified Cx Nom (Unsp spec) NO GROWTH DAY 2 OF 2 [facility] Microscopic observation Other stain Nom (Unsp spec) Cytocentrifuge preparation [facility] Microscopic observation Other stain Nom (Unsp spec) Neutrophils, Moderate [facility] Microscopic observation Other stain Nom (Unsp spec) Red Blood Cells Present [facility] Microscopic observation Other stain Nom (Unsp spec) No organisms seen [facility] CBC,PLATELETSon 09-04-2023 Erythrocyte distribution width (RBC) [Ratio] 13.2 % 10.9 - 14.3 % [facility] Hematocrit (Bld) [Volume fraction] 38.7 % Low 39.6 - 48.8 % [facility] Hemoglobin (Bld) [Mass/Vol] 12.3 g/dL Low 13.4 - 16.8 g/dL [facility] Interpretation and review of laboratory results Abnormal [facility] MCH (RBC) [Entitic mass] 27.9 pg 26.1 - 33.3 pg [facility] MCHC (RBC) [Mass/Vol] 31.8 g/dL Low 31.9 - 36.5 g/dL [facility] MCV (RBC) [Entitic vol] 87.8 fL 79.0 - 94.5 fL [facility] Platelet mean volume (Bld) [Entitic vol] 9.8 fL 8.7 - 12.3 fL [facility] Platelets (Bld) [#/Vol] 173 10*3/uL 146 - 337 K/uL [facility] RBC (Bld) [#/Vol] 4.41 10*6/uL [facility] WBC (Bld) [#/Vol] 4.57 10*3/uL 3.73 - 10. 10 K/uL [facility] Hematocrit (Bld) [Volume fraction] 38.7 % Low 39.6-48.8 [facility] Comment on above: Performed By: #### H [facility] ####[facility] (DEFAULT)[address] [place] [address] Hemoglobin (Bld) [Mass/Vol] 12.3 g/dL Low 13.4-16.8 [facility] Comment on above: Performed By: #### H EMOGC ####[facility] (DEFAULT)[address] [facility] [place] [address] MCV (RBC) [Entitic vol] 87.8 fL Normal 79.0-94.5 [facility] Comment on above: Performed By: #### H EMOGC ####[facility] (DEFAULT)[address] [facility] [place] [address] Mean Cell Hgb 27.9 pg Normal 26.1-33.3 [facility] Comment on above: Performed By: #### H EMOGC ####[facility] (DEFAULT)[address] [facility] [place] [address] Mean Cell Hgb Conc 31.8 g/dL Low 31.9-36.5 [facility] Comment on above: Performed By: #### H EMOGC ####[facility] (DEFAULT)[address] [facility] [place] [address] Platelet mean volume (Bld) [Entitic vol] 9.8 fL Normal 8.7-12.3 [facility] Comment on above: Performed By: #### H EMOGC ####[facility] (DEFAULT)[address] [place] [address] Platelets (Bld) [#/Vol] 173 10*3/uL Normal 146-337 [facility] Comment on above: Performed By: #### H EMOGC ####[facility] (DEFAULT)[address] [facility] [place] [address] RBC (Bld) [#/Vol] 4.41 10*6/uL Normal 4.38-5.83 [facility] Comment on above: Performed By: #### H EMOGC ####[facility] (DEFAULT)[address] [facility] [place] [address] RBC Distribution 13.2 % Normal 10.9-14.3 [facility] Comment on above: Performed By: #### H EMOGC ####[facility] (DEFAULT)[address] [place] [address] WBC (Bld) [#/Vol] 4.57 10*3/uL Normal 3.73-10.10 [facility] Comment on above: Performed By: #### H [facility] ####[facility] (DEFAULT)[address] [place] [address] CHEM 7 (LYTES,BUN,CREA,GLUC) on 09-04-2023 Anion gap [Moles/Vol] 16 mmol/L 7 - 17 mmol/L [facility] Chloride [Moles/Vol] 104 mmol/L 98 - 10 8 mmol/L [facility] CO2 [Moles/Vol] 18 mmol/L Low 21 - 31 mmol/L [facility] Creatinine [Mass/Vol] 1.22 mg/dL 0.70 - 1.30 mg/dL [facility] eGFR, CKD-EPI, Male 71 - PINF [facility] Glucose [Mass/Vol] 124 mg/dL High 70 - 99 mg/dL [facility] Osmolality Calc [Osmolality] 284 [facility] Potassium [Moles/Vol] 3.9 mmol/L 3.5 - 5.0 mmol/L [facility] Sodium [Moles/Vol] 134 mmol/L Low 135 - 145 mmol/L [facility] Urea nitrogen [Mass/Vol] 15 mg/dL 7 - 25 mg/dL [facility] Urea nitrogen/Creatinine [Mass ratio] 12 mg/mg [facility] Anion gap [Moles/Vol] 16 mmol/L Normal 7-17 [facility] Comment on above: Performed By: #### NATHANIEL RAMÍREZ, HFP ####[facility] (DEFAULT)[address] [place] [address] Chloride [Moles/Vol] 104 mmol/L Normal 98-108 [facility] Comment on above: Performed By: #### NATHANIEL RAMÍREZ, HFP ####[facility] (DEFAULT)[address] [place] [address] CO2 [Moles/Vol] 18 mmol/L Low 21-31 [facility] Comment on above: Performed By: #### NATHANIEL RAMÍREZ, HFP ####[facility] (DEFAULT)[address] [place] [address] Creatinine [Mass/Vol] 1.22 mg/dL Normal 0.70-1.30 [facility] Comment on above: Performed By: #### NATHANIEL RAMÍREZ, HFP ####[facility] (DEFAULT)[address] [facility] [place] [address] GFR/1.73 sq M.predicted among non-blacks MDRD (S/P/Bld) [Vol rate/Area] 71 mL/min/{1.73_m2} Normal >=60 [facility] Comment on above: Result Comment: Repo rted eGFR is based on the CKD-EPI 2020 equation using creatinine, age, and sex. Performed By: #### NATHANIEL RAMÍREZ, HFP ####[facility] (DEFAULT)[address] [place] [address] Glucose [Mass/Vol] 124 mg/dL High 70-99 [facility] Comment on above: Performed By: #### NATHANIEL RAMÍREZ, HFP ####[facility] (DEFAULT)[address] [facility] [place] [address] Osmolality [Osmolality] 284 mosm/kg Normal 278-305 [facility] Comment on above: Performed By: #### NATHANIEL RAMÍREZ, HFP ####[facility] (DEFAULT)[address] [place] [address] Potassium [Moles/Vol] 3.9 mmol/L Normal 3.5-5.0 [facility] Comment on above: Performed By: #### TJ RAMÍREZ7, HFP ####[facility] (DEFAULT)[address] [place] [address] Sodium [Moles/Vol] 134 mmol/L Low 135-145 [facility] Comment on above: Performed By: #### M NATHANIEL BLOOM, HFP ####[facility] (DEFAULT)[address] [place] [address] Urea nitrogen [Mass/Vol] 15 mg/dL Normal 7-25 [facility] Comment on above: Performed By: #### M NATHANIEL BLOOM, HFP ####[facility] (DEFAULT)[address] [place] [address] Urea nitrogen/Creatinine [Mass ratio] 12 mg/mg Normal [facility] Comment on above: Performed By: #### NATHANIEL RAMÍREZ, HFP ####[facility] (DEFAULT)[address] [place] [address] CMV PCR,FLUIDS,URINE,EYE ETC on 09-04-2023 Specimen source Nom (Unsp spec) BAL LLL [facility] Specimen source Nom (Unsp spec) BAL RML [facility] HEPATIC FUNCTION PANELon Albumin [Mass/Vol] 3.0 g/dL Low 3.5 - 5.0 g/dL [facility] ALP [Catalytic activity/Vol] 112 U/L 32 - 126 U/L [facility] ALT [Catalytic activity/Vol] 22 U/L 10 - 52 U/L [facility] AST [Catalytic activity/Vol] 30 U/L 10 - 39 U/L [facility] Bilirubin [Mass/Vol] 1.2 mg/dL NINF - 1.5 mg/dL [facility] Bilirubin.direct [Mass/Vol] 0.4 mg/dL High NINF - 0.3 mg/dL [facility] Protein [Mass/Vol] 6.4 g/dL 6.4 - 8.3 g/dL [facility] Albumin [Mass/Vol] 3.0 g/dL Low 3.5-5.0 [facility] Comment on above: Performed By: #### Rod BLOOM CHM7, HFP ####[facility] (DEFAULT)[address] [place] [address] ALP [Catalytic activity/Vol] 112 U/L Normal 32-126 [facility] Comment on above: Performed By: #### M HELEN BLOOMM7, HFP ####[facility] (DEFAULT)[address] [place] [address] ALT [Catalytic activity/Vol] 22 U/L Normal 10-52 [facility] Comment on above: Performed By: #### M NATHANIEL BLOOM, HFP ####[facility] (DEFAULT)[address] [place] [address] AST [Catalytic activity/Vol] 30 U/L Normal 10-39 [facility] Comment on above: Performed By: #### NATHANIEL RAMÍREZ, HFP ####[facility] (DEFAULT)[address] [place] [address] Bilirubin [Mass/Vol] 1.2 mg/dL Normal <1.5 [facility] Comment on above: Performed By: #### NATHANIEL RAMÍREZ, HFP ####[facility] (DEFAULT)[address] [place] [address] Bilirubin.indirect [Mass/Vol] 0.4 mg/dL High <0.3 [facility] Comment on above: Performed By: #### NATHANIEL RAMÍREZ, HFP ####[facility] (DEFAULT)[address] [place] [address] Protein [Mass/Vol] 6.4 g/dL Normal 6.4-8.3 [facility] Comment on above: Performed By: #### NATHANIEL RAMÍREZ, HFP ####[facility] (DEFAULT)[address] [place] [address] LEGIONELLA PCRon 09-04-2023 Legionella sp rRNA Probe Ql (Unsp spec) Negative Not Applicable [facility] Specimen source Nom (Unsp spec) BAL RML [facility] - Microbiology an d Antimicrobial susceptibilityon 09-04-2023 CMV DNA ESTELITA+probe Ql (Unsp spec) Negative Negative [facility] MAGNESIUMon 09-04-2023 Magnesium [Mass/Vol] 1.4 mg/dL Low 1.6 - 2 .6 mg/dL [facility] Magnesium [Mass/Vol] 1.4 mg/dL Low 1.6-2.6 [facility] Comment on above: Performed By: #### M , CHM7, HFP ####[facility] (DEFAULT)[address] [place] [address] No Panel Informationon 09-04 Annotation comment [Interpretation] Narrative DNR [facility] PN Report Status DNR [facility] Pneumocystis jiroveci,PCR result Negative Not Applicable [facility] Interpretation and review of laboratory results Abnormal [facility] PNEUMOCYSTIS JIROVECI,PCRon 09-04-2023 Specimen source Nom (Unsp spec) BAL LLL [facility] Specimen source Nom (Unsp spec) BAL RML [facility] Portable XR Chest Viewson RADIOLOGY RADIOLOGY [facility] Radiology Study observation (narrative) [facility] Portable XR Chest ViewsOrder ed By: Joanie Nugent on 09-04-2023 [facility] Work Phone: TACROLIMUS LEVEL, TROUGH (AZ E DRUG LEVEL)on 09-04-2023 Interpretation and review of laboratory results Abnormal [facility] Tacrolimus (Bld) [Mass/Vol] 3.6 ng/mL Low [facility] Tacrolimus, Trough 3.6 ng/mL Low Bone Susana ow Transplant: 4.0-12.0, Therapeutic: 5.0-15.0 [facility] Comment on above: Order Comment: Pleas e draw at specified interval PRIOR to dose. Do not hold dose to wait for level. Specimens batched twice per day, (M-F) and once per day weekendsMethod performed is a chemiluminescent microparticle immunoasssay on the [employer] Supervisor Files i2000.The range is based on experience at [facility] and users should be aware that target concentrations vary widely depending on concomitant therapy, time post-transplant, and desired degree of immunosuppression. Performed By: #### T ACRO ####[facility] (DEFAULT)[address] [place] [address] XR CHEST PORTABLEon 09-04-20 XR CHEST PORTABLE Normal [facility] ASPERGILLUS ANTIGEN, BALon 1 Galactomannan Ag IA Qn (Unsp spec) <0.500 [facility] Galactomannan Ag IA Qn (Unsp spec) <0.500 NINF [facility] BAL CONSULTOrdered By: Noa Peralta on 09-03-2023 ALVEOLAR MACROPHAGES 32 % [facility] Work Phone: Bal comments Correlation with microbiology stains and cultures is recommended. [facility] Work Phone: Bal Diff Quik Stain Quality Check Acceptable [facility] Work Phone: BKR BAL INTERPRETATION Cellular specimen comprised of alveolar macrophages and small lymphocytes. No definitive microorganisms are observed. Moderate degenerative changes. [facility] Work Phone: BKR DX CODE Use Ordering [facility] Work Phone: Eosinophils Patterson stain Ql (Unsp spec) 0 % [facility] Work Phone: Lymphocytes/100 WBC (Bld) 57 % [facility] Work Phone: Neutrophils/100 WBC Manual cnt (Bronch spec) 11 % [facility] Work Phone: Pathologist review Jame (Unsp spec) [Interp] Leonardo Peralta MD [facility] Work Phone: [facility] Work Phone: BAL CONSULTon 09-03-2023 ALVEOLAR MACROPHAGES 33 % [facility] Bal comments Correlation with microbiology stains and cultures is recommended. Correlation with viral studies is recommended. [facility] Bal Diff Quik Stain Quality Check Acceptable [facility] BKR BAL INTERPRETATION Cellular specimen comprised of alveolar macrophages and small lymphocytes. No definitive microorganisms are observed. Rare degenerating cells with changes suggestive of viral cytopathic effect are noted. Moderate degenerative changes. [facility] BKR DX CODE Use Ordering [facility] Eosinophils Patterson stain Ql (Unsp spec) 0 % [facility] Lymphocytes/100 WBC (Bld) 49 % [facility] Neutrophils/100 WBC Manual cnt (Bronch spec) 18 % [facility] Pathologist review Jame (Unsp spec) [Interp] Leonardo Peralta MD [facility] BRONCHOSCOPYon 09-03-2023 LAB, [facility] CBC,PLATELETSon 09-03-2023 Erythrocyte distribution width (RBC) [Ratio] 13.4 % 10.9 - 14.3 % [facility] Hematocrit (Bld) [Volume fraction] 39.6 % 39.6 - 48.8 % [facility] Hemoglobin (Bld) [Mass/Vol] 12.8 g/dL Low 13.4 - 16.8 g/dL [facility] Interpretation and review of laboratory results Abnormal [facility] MCH (RBC) [Entitic mass] 27.8 pg 26.1 - 33.3 pg [facility] MCHC (RBC) [Mass/Vol] 32.3 g/dL 31.9 - 36.5 g/dL [facility] MCV (RBC) [Entitic vol] 85.9 fL 79.0 - 94.5 fL [facility] Platelet mean volume (Bld) [Entitic vol] 9.4 fL 8.7 - 12.3 fL [facility] Platelets (Bld) [#/Vol] 222 10*3/uL 146 - 337 K/uL [facility] RBC (Bld) [#/Vol] 4.61 10*6/uL [facility] WBC (Bld) [#/Vol] 4.36 10*3/uL 3.73 - 10. 10 K/uL [facility] Hematocrit (Bld) [Volume fraction] 39.6 % Normal 39.6-48.8 [facility] Comment on above: Performed By: #### H EMOGC ####[facility] (DEFAULT)[address] [place] [address] Hemoglobin (Bld) [Mass/Vol] 12.8 g/dL Low 13.4-16.8 [facility] Comment on above: Performed By: #### H EMOGC ####[facility] (DEFAULT)[address] [place] [address] MCV (RBC) [Entitic vol] 85.9 fL Normal 79.0-94.5 [facility] Comment on above: Performed By: #### H EMOGC ####[facility] (DEFAULT)[address] [facility] [place] [address] Mean Cell Hgb 27.8 pg Normal 26.1-33.3 [facility] Comment on above: Performed By: #### H EMOGC ####[facility] (DEFAULT)[address] [place] [place] [address] Mean Cell Hgb Conc 32.3 g/dL Normal 31.9-36.5 [facility] Comment on above: Performed By: #### H EMOGC ####[facility] (DEFAULT)[address] [facility] [place] [address] Platelet mean volume (Bld) [Entitic vol] 9.4 fL Normal 8.7-12.3 [facility] Comment on above: Performed By: #### H EMOGC ####[facility] (DEFAULT)[address] [facility] [place] [address] Platelets (Bld) [#/Vol] 222 10*3/uL Normal 146-337 [facility] Comment on above: Performed By: #### H [facility] ####[facility] (DEFAULT)[address] [facility] [place] [address] RBC (Bld) [#/Vol] 4.61 10*6/uL Normal 4.38-5.83 [facility] Comment on above: Performed By: #### H [facility] ####[facility] (DEFAULT)[address] [facility] [place] [address] RBC Distribution 13.4 % Normal 10.9-14.3 [facility] Comment on above: Performed By: #### H [facility] ####[facility] (DEFAULT)[address] [place] [address] WBC (Bld) [#/Vol] 4.36 10*3/uL Normal 3.73-10.10 [facility] Comment on above: Performed By: #### H [facility] ####[facility] (DEFAULT)[address] [place] [address] CHEM 7 (LYTES,BUN,CREA,GLUC) on 09-03-2023 Anion gap [Moles/Vol] 12 mmol/L 7 - 17 mmol/L [facility] Chloride [Moles/Vol] 104 mmol/L 98 - 10 8 mmol/L [facility] CO2 [Moles/Vol] 24 mmol/L 21 - 31 mmol/L [facility] Creatinine [Mass/Vol] 1.20 mg/dL 0.70 - 1.30 mg/dL [facility] eGFR, CKD-EPI, Male 73 - PINF [facility] Glucose [Mass/Vol] 112 mg/dL High 70 - 99 mg/dL [facility] Osmolality Calc [Osmolality] 288 [facility] Potassium [Moles/Vol] 4.1 mmol/L 3.5 - 5.0 mmol/L [facility] Sodium [Moles/Vol] 136 mmol/L 135 - 145 mmol/L [facility] Urea nitrogen [Mass/Vol] 17 mg/dL 7 - 25 mg/dL [facility] Urea nitrogen/Creatinine [Mass ratio] 14 mg/mg [facility] Anion gap [Moles/Vol] 12 mmol/L Normal 7-17 [facility] Comment on above: Performed By: #### NATHANIEL RAMÍREZ, HFP ####[facility] (DEFAULT)[address] [facility] [place] [address] Chloride [Moles/Vol] 104 mmol/L Normal 98-108 [facility] Comment on above: Performed By: #### NATHANIEL RAMÍREZ, HFP ####[facility] (DEFAULT)[address] [facility] [place] [address] CO2 [Moles/Vol] 24 mmol/L Normal 21-31 [facility] Comment on above: Performed By: #### NATHANIEL RAMÍREZ, HFP ####[facility] (DEFAULT)[address] [place] [place] [address] Creatinine [Mass/Vol] 1.20 mg/dL Normal 0.70-1.30 [facility] Comment on above: Performed By: #### NATHANIEL RAMÍREZ, HFP ####[facility] (DEFAULT)[address] [place] [place] [address] GFR/1.73 sq M.predicted among non-blacks MDRD (S/P/Bld) [Vol rate/Area] 73 mL/min/{1.73_m2} Normal >=60 [facility] Comment on above: Result Comment: Repo rted eGFR is based on the CKD-EPI 2020 equation using creatinine, age, and sex. Performed By: #### NATHANIEL RAMÍREZ, HFP ####[facility] (DEFAULT)[address] [place] [place] [address] Glucose [Mass/Vol] 112 mg/dL High 70-99 [facility] Comment on above: Performed By: #### NATHANIEL RAMÍREZ, HFP ####[facility] (DEFAULT)[address] [place] [address] Osmolality [Osmolality] 288 mosm/kg Normal 278-305 [facility] Comment on above: Performed By: #### NATHANIEL RAMÍREZ, HFP ####[facility] (DEFAULT)[address] [place] [address] Potassium [Moles/Vol] 4.1 mmol/L Normal 3.5-5.0 [facility] Comment on above: Performed By: #### NATHANIEL RAMÍREZ, HFP ####[facility] (DEFAULT)[address] [place] [address] Sodium [Moles/Vol] 136 mmol/L Normal 135-145 [facility] Comment on above: Performed By: #### NATHANIEL RAMÍREZ, HFP ####[facility] (DEFAULT)[address] [place] [address] Urea nitrogen [Mass/Vol] 17 mg/dL Normal 7-25 [facility] Comment on above: Performed By: #### NATHANIEL RAMÍREZ, HFP ####[facility] (DEFAULT)[address] [place] [address] Urea nitrogen/Creatinine [Mass ratio] 14 mg/mg Normal [facility] Comment on above: Performed By: #### NATHANIEL RAMÍREZ, HFP ####[facility] (DEFAULT)[address] [place] [address] CYTOLOGY, NON-GYNOrdered By: Sherice Jimenez on 09-03-2023 CYTOLOGIC DIAGNOSIS f7dejXRfBZGwlAEbUMZoJ6fojhG zFSCttYIeH2YtfhvpWNbuBF5eMK 4uhKbgaIIsuHWlRJOkQgIur9osk 316yTEcs3gmUCLRuogqqPj1u8pi LRVBwI7pi0k6eK52MLDfrX1spMA kWXketcQeBRdqwtXpzdBdDrq3FH V9eKuiPdmlbFQ8wZZiyRR6LIflt 7WtpBsosFicNVX2HRVzCnnsFOsb yFJ5wIQprRomcEUfQI9gr2turCM 7muYkWRK1nAvxlXZ0fGjwzmiew3 fcfAO5tPV4WLdarRN3HCopXpVdH 8jvHYSnhE0eI96vB0oaPQQptTnk YWplCVItzPV1GJG3WVQsb7jsPEE tvVFzxTNqGzOiPXyjTkg4q4bhGH WrmW56iBIwpaC2sTtaQXrseQD1Y D15SNdsg3IsPMXpdYfpUCDmzA2h YzIzXGxldmVsbmZjbjIzXGxldmV tlpPhONzuviZvi3BwflIllFE5XF nmmbOmsLJ8oBsyQBWkQ3K7P530F MxkiaScmkKxWvWxcdg1TJMepOis bGlzdGxldmVsXGxldmVsbmZjMjN ppHE7LInoNrNkUxKybYS0IUjiYu AcpEB7LNtbwXLmsJI5MPnsvUN2I Ck8DAe7SOjjMJpjGhy4fQuijSC5 HClojN1mGUIuT23uQvW5f1dalKW 6uWZ7WBjtxVB9YXdlUlLcT6fcJL OxcW9tZ02rP2cbTPCcfRqiXQqvW GWbrBW9XQW7STYve8ttDEKomJSs kCJoPvHcXJaaIzn2q8jpDIPjhU0 7zEElaoQ5oPthNH40JXaov7VuQM FdmGriAKBqfH3nFlJdMIdiyfLpx mZjbjIzXGxldmVsamMwXGxldmVs f2QrymHtuKF7HZhvnrSyhRX0jLa iLFCiD1L9E274FPoryzUgcwXoVn Dosdb7YUOrlPistCplgFzyubKcC PaifqTkgjHrStMseQN7NVseIrDg EgKmqJK2UIesRhXuwRP2YBwtaQP xxQK5IXvrtHY9FWw5VYg3MCqoRP abPpr0nYuzjGD5RLcwoV3qCBEgF 53wGbN1h2zgjRS1vAK4CYuegCQ3 CKdcQyGmM4ypEWLdaL0nN59pO1s wPFEvrGhmEOdoMJVcrHP1YUB4KQ Yma7cbYKZlsBOvoEMnLaItXFfbA sy8p6rbUJYhfU41ySMcfaV8jClu TB63QTifj9MzSMRasMetSFDhvP3 mYzIzXGxldmVsbmZjbjIzXGxldm EbmbFkDIwywpNbp7RoarMbwUC2N DqznuLmoSI7yXuyRHGgJ3Q4B094 NAnuteYjzgPlVvPfhlr8NIYwxOv cbGlzdGxldmVsXGxldmVsbmZjMj ZyyYW1VBeyEdUmGcJcfTT7ESfkX zSgmKQ1EEauiAVbtBX9BXbecSU9 TWm5TJm5ZZctHGkaDud6sFmbtPX 0CTbsbR8eELLmI73lXfL3iM24FG ndfCfkrV99XZApzIJkaAFrwNA4F IvafCvecK60FMOwgQIsQKivi2Ye OXRtUmO7UEU3SHTciPlqaW14USS ipCBiE401fhJeHIbtUY94JFLloY YttqWfTrKrATBpiZIhuFV9BREeO L3zelfoQTvuREmfVRKlkrP8LTWw zRDlQ4CqVRHaEP6vmcalDHO8QOw sOHAjMOT0QtHzGLCwu8Kfnzn4Jg NfhLy7q7plTPOqJRUriZppb3ugL JX3VYEgxNNwQ7mthS7uSIIpHB9y hundz8boOGeePVdsVDNpuEJ4euC 8FWApnQBkT6VzkA5hHROsGJJese RvdQldjK1zKdujbvTaCNFaKFJTQ dJHGi0PF9uJTZiBPG1REEAjCDKY IIgVONGBJKVSXPdRY9RIEJcBJaC oXOZcTSTpH4yKV8xLT1uhPcxoYe RdLRucEMYlVuZbT1RzTPEyopqhH XZvSYODOJ7YQQORICRLJw8TGFU3 JMLlgjmtnVE4ZDyyvcWzwHo9pCP rjUznlX6wLxwakjEtWOCgTGXXay VJHSkpO98bgcYzZ9XhfXCjZPUaC RyfCH02hZBqBEHbaEQkBMc1pR5h SVhvfGgaibIItCDpwP3nqgnnVMs jZjBccGFyXGxpMFxsczBccGFyfQ == [facility] Work Phone: Case Report [facility] Work Phone: Clinical History j4wfvYPfZXGwaYZhEKMj M4rparA vUIKvqFLzA2IdknxcOHtyFB1lQO 9iwPfxvKZqbSJtFZJdHsJxc3zji 767nZFeh0lkNLIZjnkdcJk7gQhp H19oq9Z2IkphG4fvZDVnHQtcPYV cUTmvbBDgFDy8UDPooPAvksExWs YxXQMecCEtfXA7CKKsCM5iokeyP KkeRKsgZSUxsfN2EZVouYLlU1Fo FVZdQO8sktijTJX4ELblZEPoYIX 8QyCwCJXas7Zwfrr8IkAvlXp5j3 glBFSbTXLaxEwha1rtSVD2XSVut VYbZ6uvsQ4nRIUmMJ6mltybj7ms LYmwTWuwMCWptSL8qqZ2EKYjaQH xJ1VcrS2dSGKyKACcrkQooFqrkN 5cZnMyMFxjZjEgUmVuYWwgdHJhb iYboMQdkO0jPIDhng8= [facility] Work Phone: For Immediate Release to Patient's MyChart? Yes Yes [facility] Work Phone: Gross Description x7wnnQDzXDLvpWTvHWOl P8olsvX uAESxmEMhR3DblxzfZSwhMY7cXS 6epQkmdSErnIMbNXAwThJfp5oov 958nQUrm8mxRZHDnmkmzNa1xQgb N87fl7X2CyqmJ72wpUDfSHE9EMP oLPYkuYVqOEZsUES2KUKmbBUwK7 spCZSoKZ8mtcrfVHdyBDikKVByi GA9WSIkmXPiE6HqZBWbEBdpLRTc ksa2ZtNrAo5fkVKzpRnoWVwxAIV kXHBsYWluXGZzMjAgTExMIEJBTF tbHHWeQPUfuSBqJDv6XOEzfL7dy JWpabIdxKOxmK8myIjwUKvnDDHz FRUGNJCjyTygMGNLVQCne7RxeK9 ccGFyXHBhcmRccGFyXHBhcn0= [facility] Work Phone: [facility] Work Phone: HEPATIC FUNCTION PANELon Albumin [Mass/Vol] 3.2 g/dL Low 3.5 - 5.0 g/dL [facility] ALP [Catalytic activity/Vol] 118 U/L 32 - 126 U/L [facility] ALT [Catalytic activity/Vol] 25 U/L 10 - 52 U/L [facility] AST [Catalytic activity/Vol] 32 U/L 10 - 39 U/L [facility] Bilirubin [Mass/Vol] 1.0 mg/dL NINF - 1.5 mg/dL [facility] Bilirubin.direct [Mass/Vol] 0.3 mg/dL High NINF - 0.3 mg/dL [facility] Protein [Mass/Vol] 6.5 g/dL 6.4 - 8.3 g/dL [facility] Albumin [Mass/Vol] 3.2 g/dL Low 3.5-5.0 [facility] Comment on above: Performed By: #### NATHANIEL RAMÍREZ, HFP ####[facility] (DEFAULT)[address] [place] [place] [address] ALP [Catalytic activity/Vol] 118 U/L Normal 32-126 [facility] Comment on above: Performed By: #### NATHANIEL RAMÍREZ, HFP ####U [facility] (DEFAULT)[address] [place] [address] ALT [Catalytic activity/Vol] 25 U/L Normal 10-52 [facility] Comment on above: Performed By: #### NATHANIEL RAMÍREZ, HFP ####[facility] (DEFAULT)[address] [place] [address] AST [Catalytic activity/Vol] 32 U/L Normal 10-39 [facility] Comment on above: Performed By: #### NATHANIEL RAMÍREZ, HFP ####[facility] (DEFAULT)[address] [place] [address] Bilirubin [Mass/Vol] 1.0 mg/dL Normal <1.5 [facility] Comment on above: Performed By: #### NATHANIEL RAMÍREZ, HFP ####[facility] (DEFAULT)[address] [place] [address] Bilirubin.indirect [Mass/Vol] 0.3 mg/dL High <0.3 [facility] Comment on above: Performed By: #### M GO, CHM7, HFP ####[facility] (DEFAULT)[address] [place] [address] Protein [Mass/Vol] 6.5 g/dL Normal 6.4-8.3 [facility] Comment on above: Performed By: #### M GO, CHM7, HFP ####[facility] (DEFAULT)[address] [place] [address] HISTOPLASMA AND BLASTOMYCES ANTIGEN, ENZYME IMMUNOASSAY, SERMon 09-03-2023 Histoplasma/Blastomy antonia Ag Result Detected Critically abnormal Not Detected [facility] Histoplasma/Blastomy antonia Ag Value 5.3 ng/mL [facility] Interpretation and review of laboratory results Abnormal [facility] IMMUNOPHENOTYPING, TISSUE/FL UIDon 09-03-2023 BKR DX CODE Use Ordering Normal [facility] Comment on above: Order Comment: Dilan gregory lab add on to specimen collected yesterdayIMMUNOPHENOTYPING DIAGNOSISPATIENT NAME: GEORGE SLATER: 1970MRN: [id number]#: [id number] BY: Yossi Perla M.D,, Ph.D. [id number] TYPE: Bronchial Alveolar LavageLABORATORY INTERPRETATION:There is no [...] performance characteristicsdetermined The Flow Cytometry Laboratory at [facility]. It has notbeen cleared or approved by the FDA. This laboratory is certifiedunder the Clinical Laboratory Improvement Amendments (CLIA)as qualified to perform high complexity clinical laboratorytesting. This test is used for clinical purposes. It should notbe regarded as investigational or for research.The [facility] Flow Cytometry Laboratory lower limitof CLL MRD detection is 0.1% of the gated lymphocytes. Performed By: #### G IPP ####[facility] (DEFAULT)[address] [place] [address] Flow Interpretation See Comment Normal [facility] Comment on above: Order Comment: Pleas e lab add on to specimen collected yesterdayIMMUNOPHENOTYPING DIAGNOSISPATIENT NAME: GEORGE SLATER: 1970MRN: [id number]#: [id number] BY: Yossi Perla M.D,, Ph.D. [id number] TYPE: Bronchial Alveolar LavageLABORATORY INTERPRETATION:There is no [...] performance characteristicsdetermined The Flow Cytometry Laboratory at [facility]. It has notbeen cleared or approved by the FDA. This laboratory is certifiedunder the Clinical Laboratory Improvement Amendments (CLIA)as qualified to perform high complexity clinical laboratorytesting. This test is used for clinical purposes. It should notbe regarded as investigational or for research.The [facility] Flow Cytometry Laboratory lower limitof CLL MRD detection is 0.1% of the gated lymphocytes. Performed By: #### G IPP ####[facility] (DEFAULT)[address] [place] [address] Flow Interpreted by: Yossi Perla MD, PhD [facility] Comment on above: Order Comment: Pleas e lab add on to specimen collected yesterdayIMMUNOPHENOTYPING DIAGNOSISPATIENT NAME: GEORGE SLATER: 1970MRN: [id number]#: [id number] BY: Yossi Perla M.D,, Ph.D. [id number] TYPE: Bronchial Alveolar LavageLABORATORY INTERPRETATION:There is no [...] performance characteristicsdetermined The Flow Cytometry Laboratory at [facility]. It has notbeen cleared or approved by the FDA. This laboratory is certifiedunder the Clinical Laboratory Improvement Amendments (CLIA)as qualified to perform high complexity clinical laboratorytesting. This test is used for clinical purposes. It should notbe regarded as investigational or for research.The [facility] Flow Cytometry Laboratory lower limitof CLL MRD detection is 0.1% of the gated lymphocytes. Performed By: #### G IP ####[facility] ([facility])[address] [place] [address] 09-03-2023 Interpretation and review of laboratory results Normal [facility] Magnesium [Mass/Vol] 1.6 mg/dL 1.6 - 2 .6 mg/dL [facility] Magnesium [Mass/Vol] 1.6 mg/dL Normal 1.6-2.6 [facility] Comment on above: Performed By: #### M , CHM7, HFP ####[facility] (DEFAULT)[address] [place] [address] No Panel Informationon 09-03 Interpretation and review of laboratory results Abnormal [facility] PARVOVIRUS (B19) DNA, PCR, B LOODon 09-03-2023 PARVOVIRUS B19 BY RAPID PCR Not detected Not Detected [facility] AZ SPEC SOURCE Whole Blood [facility] Portable XR Chest Viewson RADIOLOGY RADIOLOGY [facility] Radiology Study observation (narrative) [facility] Portable XR Chest ViewsOrder ed By: [place] on 09-03-2023 [facility] Work Phone: XR CHEST PORTABLEon 09-03-20 23 XR CHEST PORTABLE Normal [facility] ACID FAST CULTUREon 09-02-20 23 Bacteria identified Cx Nom (Unsp spec) NO GROWTH DAY 42 OF 42 Normal [facility] Comment on above: Performed By: #### A FB ####[facility] (DEFAULT)[address] [place] [address] Fluorochrome Stain No acid Fast Bacillus Seen Normal [facility] Comment on above: Performed By: #### A FB ####[facility] (DEFAULT)[address] [place] [address] Bacteria identified Cx Nom (Unsp spec) NO GROWTH DAY 42 OF 42 Normal [facility] Comment on above: Order Comment: BAL A FB culture. Clinical suspicion for non-tuberculous mycobacteria Performed By: #### A FB ####[facility] (DEFAULT)[address] [place] [address] Fluorochrome Stain No acid Fast Bacillus Seen Normal [facility] Comment on above: Order Comment: BAL A FB culture. Clinical suspicion for non-tuberculous mycobacteria Performed By: #### A FB ####[facility] (DEFAULT)[address] [place] [address] ASPERGILLUS (GALACTOMANNAN), ANTIGENon 09-02-2023 Galactomannan Ag IA Qn <0.500 NINF [facility] ASPERGILLUS ANTIGEN, BALon 1 Aspergillus Galactomannan Antigen, BAL <0.500 Normal <0.5 [facility] Comment on above: Result Comment: ---- ADDITIONAL INFORMATION This is a qualitative test and the resulted index value isnot indicative of disease severity. Serial testing isrecommended for patients at high risk for invasiveaspergillosis.This assay was performed using the FDA-cleared Bio-IntioPlatelia Aspergillus Galactomannan EIA.Test Performed by:[address] [address]Jks Director: Rosendo Bose M.D. Ph.D.; CLIA# [id number] Performed By: #### X ASGFL ####[facility] (DEFAULT)[address] [place] [address] Aspergillus Galactomannan Antigen, BAL <0.500 Normal <0.5 [facility] Comment on above: Order Comment: BAL a spirgillus antigen Result Comment: ---- ADDITIONAL INFORMATION This is a qualitative test and the resulted index value isnot indicative of disease severity. Serial testing isrecommended for patients at high risk for invasiveaspergillosis.This assay was performed using the FDA-cleared Bio-RadPlatelia Aspergillus Galactomannan EIA.Test Performed by:[facility] [place], [place] [address]Qem Director: Rosendo Bose M.D. Ph.D.; [facility]# [id number] Performed By: #### X ASGFL ####[facility] (DEFAULT)[address] [place] [address] ATYPICAL BACTERIAL PNEUMONIA ,PCROrdered By: Shari Contreras on 09-02-2023 B. parapertussis DNA ESTELITA+probe Ql (Unsp spec) Not detected Not Detected [facility] B. pertussis DNA ESTELITA+probe Ql (Unsp spec) Not detected Not Detected [facility] C. pneumoniae DNA ESTELITA+probe Ql (Unsp spec) Not detected Not Detected [facility] Interpretation and review of laboratory results Normal [facility] M. pneumoniae DNA ESTELITA+probe Ql (Unsp spec) Not detected Not Detected [facility] ATYPICAL BACTERIAL PNEUMONIA ,PCRon 09-02-2023 Bordetella Parapertussis Not detected Normal Not Detected [facility] Comment on above: Order Comment: Viral [...] by The Clinical Microbiology Laboratory at [facility]. It has not been cleared or approved by the FDA. The laboratory is required under CLIA as qualified to perform high-complexity testing. This test is used for clinical purposes. It should not be regarded as investigational or for research. Performed By: #### A TYPNE ####[facility] (DEFAULT)[address] [place] [address] Bordetella Pertussis Not detected Normal Not Detected [facility] Comment on above: Order Comment: Viral [...] by The Clinical Microbiology Laboratory at [facility]. It has not been cleared or approved by the FDA. The laboratory is required under CLIA as qualified to perform high-complexity testing. This test is used for clinical purposes. It should not be regarded as investigational or for research. Performed By: #### A TYPNE ####[facility] (DEFAULT)[address] [place] [address] Chlamydia Pneumoniae Not detected Normal Not Detected [facility] Comment on above: Order Comment: Viral [...] by The Clinical Microbiology Laboratory at [facility]. It has not been cleared or approved by the FDA. The laboratory is required under CLIA as qualified to perform high-complexity testing. This test is used for clinical purposes. It should not be regarded as investigational or for research. Performed By: #### A TYPNE ####[facility] (DEFAULT)[address] [place] [address] Mycoplasma Pneumoniae Not detected Normal Not Detected [facility] Comment on above: Order Comment: Viral [...] by The Clinical Microbiology Laboratory at [facility]. It has not been cleared or approved by the FDA. The laboratory is required under CLIA as qualified to perform high-complexity testing. This test is used for clinical purposes. It should not be regarded as investigational or for research. Performed By: #### A TYPNE ####[facility] (DEFAULT)[address] [place] [address] BAL CONSULTon 09-02-2023 ALVEOLAR MACROPHAGES 33 % Normal [facility] Comment on above: Order Comment: BAL c onsultIf > 15% lymphocytes - please send for flow. Performed By: #### B ALC ####[facility] (DEFAULT)[address] [place] [address] Bal comments Correlation with microbiology stains and cultures is recommended. Correlation with viral studies is recommended. [facility] Comment on above: Order Comment: BAL c onsultIf > 15% lymphocytes - please send for flow. Performed By: #### B ALC ####[facility] (DEFAULT)[address] [place] [address] Bal Diff Quik Stain Quality Check Acceptable Normal [facility] Comment on above: Order Comment: BAL c onsultIf > 15% lymphocytes - please send for flow. Performed By: #### B ALC ####[facility] (DEFAULT)[address] [place] [address] Bal Reviewed By: Leonardo Peralta MD [facility] Comment on above: Order Comment: BAL c onsultIf > 15% lymphocytes - please send for flow. Performed By: #### B ALC ####[facility] (DEFAULT)[address] [place] [address] BKR BAL INTERPRETATION Cellular specimen comprised of alveolar macrophages and small lymphocytes. No definitive microorganisms are observed. Rare degenerating cells with changes suggestive of viral cytopathic effect are noted. Moderate degenerative changes. [facility] Comment on above: Order Comment: BAL c onsultIf > 15% lymphocytes - please send for flow. Performed By: #### B ALC ####[facility] (DEFAULT)[address] [place] [address] BKR DX CODE Use Ordering [facility] Comment on above: Order Comment: BAL c onsultIf > 15% lymphocytes - please send for flow. Performed By: #### B ALC ####[facility] (DEFAULT)[address] [place] [address] Eosinophils/100 WBC (Bld) 0 % Normal [facility] Comment on above: Order Comment: BAL c onsultIf > 15% lymphocytes - please send for flow. Performed By: #### B ALC ####[facility] (DEFAULT)[address] [place] [address] Lymphocytes/100 WBC (Bld) 49 % Normal [facility] Comment on above: Order Comment: BAL c onsultIf > 15% lymphocytes - please send for flow. Performed By: #### B ALC ####[facility] (DEFAULT)[address] [facility] [place] [address] Neutrophils/100 WBC (Bld) 18 % Normal [facility] Comment on above: Order Comment: BAL c onsultIf > 15% lymphocytes - please send for flow. Performed By: #### B ALC ####[facility] (DEFAULT)[address] [facility] [place] [address] ALVEOLAR MACROPHAGES 32 % Normal [facility] Comment on above: Order Comment: BAL c onsult for cell differential and pathologist review. Please do flow cytometry if > 12% lymphocytes Performed By: #### B ALC ####[facility] (DEFAULT)[address] [place] [place] [address] Bal comments Correlation with microbiology stains and cultures is recommended. Normal [facility] Comment on above: Order Comment: BAL c onsult for cell differential and pathologist review. Please do flow cytometry if > 12% lymphocytes Performed By: #### B ALC ####[facility] (DEFAULT)[address] [place] [place] [address] Bal Diff Quik Stain Quality Check Acceptable Normal [facility] Comment on above: Order Comment: BAL c onsult for cell differential and pathologist review. Please do flow cytometry if > 12% lymphocytes Performed By: #### B ALC ####[facility] (DEFAULT)[address] [facility] [place] [address] Bal Reviewed By: Leonardo Peralta MD [facility] Comment on above: Order Comment: BAL c onsult for cell differential and pathologist review. Please do flow cytometry if > 12% lymphocytes Performed By: #### B ALC ####[facility] (DEFAULT)[address] [place] [address] BKR BAL INTERPRETATION Cellular specimen comprised of alveolar macrophages and small lymphocytes. No definitive microorganisms are observed. Moderate degenerative changes. Normal [facility] Comment on above: Order Comment: BAL c onsult for cell differential and pathologist review. Please do flow cytometry if > 12% lymphocytes Performed By: #### B ALC ####[facility] (DEFAULT)[address] [place] [address] BKR DX CODE Use Ordering Normal [facility] Comment on above: Order Comment: BAL c onsult for cell differential and pathologist review. Please do flow cytometry if > 12% lymphocytes Performed By: #### B ALC ####[facility] (DEFAULT)[address] [place] [place] [address] Eosinophils/100 WBC (Bld) 0 % Normal [facility] Comment on above: Order Comment: BAL c onsult for cell differential and pathologist review. Please do flow cytometry if > 12% lymphocytes Performed By: #### B ALC ####[facility] (DEFAULT)[address] [place] [place] [address] Lymphocytes/100 WBC (Bld) 57 % Normal [facility] Comment on above: Order Comment: BAL c onsult for cell differential and pathologist review. Please do flow cytometry if > 12% lymphocytes Performed By: #### B ALC ####[facility] (DEFAULT)[address] [facility] [place] [address] Neutrophils/100 WBC (Bld) 11 % Normal [facility] Comment on above: Order Comment: BAL c onsult for cell differential and pathologist review. Please do flow cytometry if > 12% lymphocytes Performed By: #### B ALC ####[facility] (DEFAULT)[address] [place] [address] BRONCHOSCOPYon 09-02-2023 Radiology Study observation (narrative) [facility] Bacteria identified Cx Nom ( Bld)on 09-02-2023 Bacteria identified Cx Nom (Unsp spec) NO GROWTH DAY 5 OF 5 [facility] CBC,PLATELETSon 09-02-2023 Erythrocyte distribution width (RBC) [Ratio] 13.2 % 10.9 - 14.3 % [facility] Hematocrit (Bld) [Volume fraction] 39.9 % 39.6 - 48.8 % [facility] Hemoglobin (Bld) [Mass/Vol] 12.9 g/dL Low 13.4 - 16.8 g/dL [facility] Interpretation and review of laboratory results Abnormal [facility] MCH (RBC) [Entitic mass] 27.9 pg 26.1 - 33.3 pg [facility] MCHC (RBC) [Mass/Vol] 32.3 g/dL 31.9 - 36.5 g/dL [facility] MCV (RBC) [Entitic vol] 86.4 fL 79.0 - 94.5 fL [facility] Platelet mean volume (Bld) [Entitic vol] 9.5 fL 8.7 - 12.3 fL [facility] Platelets (Bld) [#/Vol] 210 10*3/uL 146 - 337 K/uL [facility] RBC (Bld) [#/Vol] 4.62 10*6/uL [facility] WBC (Bld) [#/Vol] 4.12 10*3/uL 3.73 - 10. 10 K/uL [facility] Hematocrit (Bld) [Volume fraction] 39.9 % Normal 39.6-48.8 [facility] Comment on above: Performed By: #### H [facility] ####[facility] (DEFAULT)[address] [place] [place] [address] Hemoglobin (Bld) [Mass/Vol] 12.9 g/dL Low 13.4-16.8 [facility] Comment on above: Performed By: #### H EMOGC ####[facility] (DEFAULT)[address] [place] [address] MCV (RBC) [Entitic vol] 86.4 fL Normal 79.0-94.5 [facility] Comment on above: Performed By: #### H EMOGC ####[facility] (DEFAULT)[address] [place] [address] Mean Cell Hgb 27.9 pg Normal 26.1-33.3 [facility] Comment on above: Performed By: #### H EMOGC ####[facility] (DEFAULT)[address] [place] [address] Mean Cell Hgb Conc 32.3 g/dL Normal 31.9-36.5 [facility] Comment on above: Performed By: #### H EMOGC ####[facility] (DEFAULT)[address] [place] [address] Platelet mean volume (Bld) [Entitic vol] 9.5 fL Normal 8.7-12.3 [facility] Comment on above: Performed By: #### H EMOGC ####[facility] (DEFAULT)[address] [place] [address] Platelets (Bld) [#/Vol] 210 10*3/uL Normal 146-337 [facility] Comment on above: Performed By: #### H EMOGC ####[facility] (DEFAULT)[address] [place] [address] RBC (Bld) [#/Vol] 4.62 10*6/uL Normal 4.38-5.83 [facility] Comment on above: Performed By: #### H EMOGC ####[facility] (DEFAULT)[address] [place] [address] RBC Distribution 13.2 % Normal 10.9-14.3 [facility] Comment on above: Performed By: #### H [facility] ####[facility] (DEFAULT)[address] [place] [address] WBC (Bld) [#/Vol] 4.12 10*3/uL Normal 3.73-10.10 [facility] Comment on above: Performed By: #### H [facility] ####[facility] (DEFAULT)[address] [place] [address] CHEM 7 (LYTES,BUN,CREA,GLUC) on 09-02-2023 Anion gap [Moles/Vol] 13 mmol/L 7 - 17 mmol/L [facility] Chloride [Moles/Vol] 105 mmol/L 98 - 10 8 mmol/L [facility] CO2 [Moles/Vol] 22 mmol/L 21 - 31 mmol/L [facility] Creatinine [Mass/Vol] 1.25 mg/dL 0.70 - 1.30 mg/dL [facility] eGFR, CKD-EPI, Male 69 - PINF [facility] Glucose [Mass/Vol] 105 mg/dL High 70 - 99 mg/dL [facility] Osmolality Calc [Osmolality] 287 [facility] Potassium [Moles/Vol] 4.3 mmol/L 3.5 - 5.0 mmol/L [facility] Sodium [Moles/Vol] 136 mmol/L 135 - 145 mmol/L [facility] Urea nitrogen [Mass/Vol] 16 mg/dL 7 - 25 mg/dL [facility] Urea nitrogen/Creatinine [Mass ratio] 13 mg/mg [facility] Anion gap [Moles/Vol] 13 mmol/L Normal 7-17 [facility] Comment on above: Performed By: #### M MERLE CHM7, [facility] ####[facility] (DEFAULT)[address] [place] [address] Chloride [Moles/Vol] 105 mmol/L Normal 98-108 [facility] Comment on above: Performed By: #### M MERLE CHM7, HFP ####[facility] (DEFAULT)[address] [facility] [place] [address] CO2 [Moles/Vol] 22 mmol/L Normal 21-31 [facility] Comment on above: Performed By: #### NATHANIEL RAMÍREZ, HFP ####[facility] (DEFAULT)[address] [facility] [place] [address] Creatinine [Mass/Vol] 1.25 mg/dL Normal 0.70-1.30 [facility] Comment on above: Performed By: #### NATHANIEL RAMÍREZ, HFP ####[facility] (DEFAULT)[address] [facility] [place] [address] GFR/1.73 sq M.predicted among non-blacks MDRD (S/P/Bld) [Vol rate/Area] 69 mL/min/{1.73_m2} Normal >=60 [facility] Comment on above: Result Comment: Repo rted eGFR is based on the CKD-EPI 2020 equation using creatinine, age, and sex. Performed By: #### NATHANIEL RAMÍREZ, HFP ####[facility] (DEFAULT)[address] [facility] [place] [address] Glucose [Mass/Vol] 105 mg/dL High 70-99 [facility] Comment on above: Performed By: #### NATHANIEL RAMÍREZ, HFP ####[facility] (DEFAULT)[address] [facility] [place] [address] Osmolality [Osmolality] 287 mosm/kg Normal 278-305 [facility] Comment on above: Performed By: #### NATHANIEL RAMÍREZ, HFP ####[facility] (DEFAULT)[address] [facility] [place] [address] Potassium [Moles/Vol] 4.3 mmol/L Normal 3.5-5.0 [facility] Comment on above: Performed By: #### NATHANIEL RAMÍREZ, HFP ####[facility] (DEFAULT)[address] [place] [address] Sodium [Moles/Vol] 136 mmol/L Normal 135-145 [facility] Comment on above: Performed By: #### M NATHANIEL BLOOM, HFP ####[facility] (DEFAULT)[address] [place] [address] Urea nitrogen [Mass/Vol] 16 mg/dL Normal 7-25 [facility] Comment on above: Performed By: #### M NATHANIEL BLOOM, HFP ####[facility] (DEFAULT)[address] [facility] [place] [address] Urea nitrogen/Creatinine [Mass ratio] 13 mg/mg Normal [facility] Comment on above: Performed By: #### NATHANIEL RAMÍREZ, HFP ####[facility] (DEFAULT)[address] [facility] [place] [address] CMV PCR,FLUIDS,URINE,EYE ETC on 09-02-2023 CMV by PCR Result Negative Normal Negative [facility] Comment on above: Result Comment: ---- ADDITIONAL INFORMATION This test was developed and its performance characteristicsdetermined by [facility] in a manner consistent with CLIArequirements. This test has not been cleared or approved bythe U.S. Food and Drug Administration.Test Performed by:[address] [address]Uem Director: Rosendo Bose M.D. Ph.D.; CLIA# [id number] Performed By: #### Y CMV ####[facility] (DEFAULT)[address] [facility] [place] [address] CMV BY PCR SOURCE BAL RML Normal [facility] Comment on above: Performed By: #### Y CMV ####[facility] (DEFAULT)[address] [facility] [place] [address] CMV by PCR Result Negative Normal Negative [facility] Comment on above: Result Comment: ---- ADDITIONAL INFORMATION This test was developed and its performance characteristicsdetermined by [facility] in a manner consistent with CLIArequirements. This test has not been cleared or approved bythe U.S. Food and Drug Administration.Test Performed by:[address] [address]Wvi Director: Rosendo Bose M.D. Ph.D.; CLIA# [id number] Performed By: #### Y CMV ####[facility] (DEFAULT)[address] [place] [address] CMV BY PCR SOURCE BAL LLL Normal [facility] Comment on above: Performed By: #### Y CMV ####[facility] (DEFAULT)[address] [place] [address] CYTOLOGY, NON-GYNon 09-02-20 CYTOLOGIC DIAGNOSIS Normal [facility] Comment on above: Result Comment: A. B RONCHOALVEOLAR LAVAGE, LEFT LOWER LOBE (CYTOLOGY):FINAL DIAGNOSIS:No Malignant Cells Are IdentifiedHypocellular Specimen Performed By: #### N ONGNNONFNA ####[facility] (DEFAULT)[address] [place] [address] Case Report Normal [facility] Comment on above: Result Comment: Medi abhishek Cytology Report Case: [id number] Provider: Crow Diaz MD Collected: 09/02/2023 08:38 AMOrdering Location: 0 Received: 09/02/2023 10:44 AMPathologist: KENTON Caglepecimen: BRONCHOALVEOLAR LAVAGE, LLL BAL Performed By: #### N ONGNNONFNA ####[facility] (DEFAULT)[address] [place] [address] Clinical History Renal transplant. Normal O [facility] Comment on above: Performed By: #### N ONJONH ####[facility] (DEFAULT)[address] [place] [address] Gross Description Normal [facility] Comment on above: Result Comment: LLL BAL1 ml hazy colorless fld unfixed1 TP slide Pap stainFor Immediate Release to Patient's MyChart? Yes Performed By: #### N LITZY ####[facility] (DEFAULT)[address] [facility] [place] [address] FUNGUS CULTUREon 09-02-2023 Bacteria identified Cx Nom (Unsp spec) Normal [facility] Comment on above: Order Comment: Ident ification was performed on the MALDI-TOF mass spectrometer Perkvilleyper. This test was developed by [facility]. It has not been cleared or approved by the FDA. The laboratory is regulated under CLIA as qualified to perform high-complexity testing. This test is used for clinical purposes. It should not be regarded as investigational or for research. Result Comment: Grow yj608Ied Alder Histoplasma capsulatum Performed By: #### F UN ####[facility] (DEFAULT)[address] [place] [address] Bacteria identified Cx Nom (Unsp spec) NO GROWTH DAY 28 OF 28 Normal [facility] Comment on above: Order Comment: BAL f ungal culture Performed By: #### F UN ####[facility] (DEFAULT)[address] [place] [address] HEPATIC FUNCTION PANELon Albumin [Mass/Vol] 3.2 g/dL Low 3.5 - 5.0 g/dL [facility] ALP [Catalytic activity/Vol] 107 U/L 32 - 126 U/L [facility] ALT [Catalytic activity/Vol] 20 U/L 10 - 52 U/L [facility] AST [Catalytic activity/Vol] 31 U/L 10 - 39 U/L [facility] Bilirubin [Mass/Vol] 1.0 mg/dL NINF - 1.5 mg/dL [facility] Bilirubin.direct [Mass/Vol] 0.3 mg/dL High NINF - 0.3 mg/dL [facility] Protein [Mass/Vol] 6.6 g/dL 6.4 - 8.3 g/dL [facility] Albumin [Mass/Vol] 3.2 g/dL Low 3.5-5.0 [facility] Comment on above: Performed By: #### M MERLE CHM7, HFP ####[facility] (DEFAULT)[address] [place] [address] ALP [Catalytic activity/Vol] 107 U/L Normal 32-126 [facility] Comment on above: Performed By: #### Rod BLOOM CHM7, HFP ####[facility] (DEFAULT)[address] [facility] [place] [address] ALT [Catalytic activity/Vol] 20 U/L Normal 10-52 [facility] Comment on above: Performed By: #### M MERLE CHM7, HFP ####[facility] (DEFAULT)[address] [place] [address] AST [Catalytic activity/Vol] 31 U/L Normal 10-39 [facility] Comment on above: Performed By: #### M MERLE CHM7, HFP ####[facility] (DEFAULT)[address] [place] [address] Bilirubin [Mass/Vol] 1.0 mg/dL Normal <1.5 [facility] Comment on above: Performed By: #### M MERLE CHM7, HFP ####[facility] (DEFAULT)[address] [place] [address] Bilirubin.indirect [Mass/Vol] 0.3 mg/dL High <0.3 [facility] Comment on above: Performed By: #### Rod BLOOM CHM7, HFP ####[facility] (DEFAULT)[address] [place] [address] Protein [Mass/Vol] 6.6 g/dL Normal 6.4-8.3 [facility] Comment on above: Performed By: #### M GO, CHM7, HFP ####[facility] (DEFAULT)[address] [place] [address] HISTOPLASMA ANTIGEN, FLUIDon 09-02-2023 FH SOURCE BAL RML Normal [facility] Comment on above: Performed By: #### Y FHST ####[facility] (DEFAULT)[address] [place] [address] Histo FLD interpretation Negative Normal [facility] Comment on above: Result Comment: ---- ADDITIONAL INFORMATION Reference interval: None DetectedReportable Range: Positive Results reported in ng/mL from0.20 ng/mL to 20.00 ng/mLPositive Results above 20.00 ng/mL are reported as 'Abovethe Limit of Quantification'Cross-reactions occur with Blastomyces spp., Coccidioidesspp., and Paracoccidioides brasiliensis.This test was developed and its performance characteristicsdetermined by [employer]. It has not beencleared or approved by the FDA; however, FDA clearance orapproval is not currently required for clinical use. Theresults are not intended to be used as the sole means forclinical diagnosis or patient management decisions.Test Performed by:[employer] [facility] [place] [address] Performed By: #### Y FHST ####[facility] (DEFAULT)[address] [place] [address] Histoplasma Antigen, FLUID Not detected Normal [facility] Comment on above: Performed By: #### Y FHST ####[facility] (DEFAULT)[address] [place] [address] HISTOPLASMA ANTIGEN,URINEon 09-02-2023 H. capsulatum Ag (U) [Mass/Vol] Not detected ng/mL [facility] H. capsulatum Ag IA Ql (U) Not detected Not Detected [facility] HISTOPLASMA CAPSULATUM/BLAST OMYCES SPECIES,PCR FLUIDon 09-02-2023 HISTO/BLASTO RESULT Negative Normal Not Applicable [facility] Comment on above: Result Comment: A Ne gative result from BAL fluid does not rule out thepresence of Histoplasma capsulatum because the sensitivity from this source is suboptimal. ADDITIONAL INFORMATION This test was developed and its performance characteristicsdetermined by [facility] in a manner consistent with CLIArequirements. This test has not been cleared or approved bythe U.S. Food and Drug Administration.Test Performed by:[address] Director: Rosendo Bose M.D. Ph.D.; CLIA# [id number] Performed By: #### Y HBRP ####[facility] (DEFAULT)[address] [place] [address] Source BAL RML Normal [facility] Comment on above: Performed By: #### Y HBRP ####[facility] (DEFAULT)[address] [place] [address] HIV 1 AND 2 ANTIBODIES/P24 A NTIGENOrdered By: Wilma Luque on 09-02-2023 HIV 1+2 Ab+HIV1 p24 Ag IA Ql Non-Reactive Non Reactive [facility] Interpretation and review of laboratory results Normal [facility] HIV 1 AND 2 ANTIBODIES/P24 A NTIGENon 09-02-2023 HIV-1/HIV-2 Ab With p24 Antigen Non-Reactive Normal Non Reactive [facility] Comment on above: Performed By: #### L [id number] ####[facility] (DEFAULT)[address] [place] [address] LEGIONELLA CULTUREon 023 Bacteria identified Cx Nom (Unsp spec) NO GROWTH DAY 7 OF 7 Normal [facility] Comment on above: Performed By: #### L EGN ####[facility] (DEFAULT)[address] [place] [address] Bacteria identified Cx Nom (Unsp spec) NO GROWTH DAY 7 OF 7 Normal [facility] Comment on above: Order Comment: BAL l egionella culture Performed By: #### L EGN ####[facility] (DEFAULT)[address] [facility] [place] [address] LEGIONELLA PCRon 09-02-2023 Legionella species, Culture BAL RML Normal [facility] Comment on above: Performed By: #### Y LEGRP ####[facility] (DEFAULT)[address] [facility] [place] [address] Legionella, pcr result Negative Normal Not Applicable [facility] Comment on above: Result Comment: ---- ADDITIONAL INFORMATION This test was developed and its performance characteristicsdetermined by [facility] in a manner consistent with CLIArequirements. This test has not been cleared or approved bythe U.S. Food and Drug Administration.Test Performed by:[address] [address]Dxf Director: Rosendo Bose M.D. Ph.D.; CLIA# [id number] Performed By: #### Y LEGRP ####[facility] (DEFAULT)[address] [place] [address] LOWER RESPIRATORY CULTURE, B ACTERIALon 09-02-2023 Bacteria identified Cx Nom (Unsp spec) NO GROWTH DAY 2 OF 2 Normal [facility] Comment on above: Performed By: #### R ES ####[facility] (DEFAULT)[address] [place] [address] Microscopic observation Gram stain Nom (Unsp spec) Normal [facility] Comment on above: Result Comment: Cyto centrifuge preparationNeutrophils, RareRed Blood Cells PresentNo organisms seen Performed By: #### R ES ####[facility] (DEFAULT)[address] [place] [address] Bacteria identified Cx Nom (Unsp spec) NO GROWTH DAY 2 OF 2 Normal [facility] Comment on above: Order Comment: BAL b acterial respiratory culture Performed By: #### R ES ####[facility] (DEFAULT)[address] [place] [address] Microscopic observation Gram stain Nom (Unsp spec) Normal [facility] Comment on above: Order Comment: BAL b acterial respiratory culture Result Comment: Cyto centrifuge preparationNeutrophils, ModerateRed Blood Cells PresentNo organisms seen Performed By: #### R ES ####[facility] (DEFAULT)[address] [place] [address] MAGNESIUMon 09-02-2023 Interpretation and review of laboratory results Normal [facility] Magnesium [Mass/Vol] 1.7 mg/dL 1.6 - 2 .6 mg/dL [facility] Magnesium [Mass/Vol] 1.7 mg/dL Normal 1.6-2.6 [facility] Comment on above: Performed By: #### M GO, CHM7, HFP ####[facility] (DEFAULT)[address] [place] [address] No Panel Informationon 09-02 Interpretation and review of laboratory results Abnormal [facility] PNEUMOCYSTIS JIROVECI,PCRon 09-02-2023 PN Report Status DNR Normal [facility] Comment on above: Performed By: #### Y PNRP ####[facility] (DEFAULT)[address] [place] [address] PN Specimen Source BAL RML Normal [facility] Comment on above: Performed By: #### Y PNRP ####[facility] (DEFAULT)[address] [place] [address] Pneum jiroveci comment DNR Normal [facility] Comment on above: Performed By: #### Y PNRP ####[facility] (DEFAULT)[address] [place] [address] Pneumocystis jiroveci,PCR result Negative Normal Not Applicable [facility] Comment on above: Result Comment: ---- ADDITIONAL INFORMATION This test was developed and its performance characteristicsdetermined by [facility] in a manner consistent with CLIArequirements. This test has not been cleared or approved bythe U.S. Food and Drug Administration.Test Performed by:[place] [id number] Director: Rosendo Bose M.D. Ph.D.; CLIA# [id number] Performed By: #### Y PNRP ####[facility] (DEFAULT)[address] [facility] [place] [address] PN Report Status DNR Normal [facility] Comment on above: Performed By: #### Y PNRP ####[facility] (DEFAULT)[address] [facility] [place] [address] PN Specimen Source BAL LLL Normal [facility] Comment on above: Performed By: #### Y PNRP ####[facility] (DEFAULT)[address] [place] [address] Pneum jiroveci comment DNR Normal [facility] Comment on above: Performed By: #### Y PNRP ####[facility] (DEFAULT)[address] [place] [address] Pneumocystis jiroveci,PCR result Negative Normal Not Applicable [facility] Comment on above: Result Comment: ---- ADDITIONAL INFORMATION This test was developed and its performance characteristicsdetermined by [facility] in a manner consistent with CLIArequirements. This test has not been cleared or approved bythe U.S. Food and Drug Administration.Test Performed by:[address] [address]Pkh Director: Rosendo Bose M.D. Ph.D.; CLIA# [id number] Performed By: #### Y PNRP ####[facility] (DEFAULT)[address] [place] [address] TACROLIMUS LEVEL, TROUGH (AZ E DRUG LEVEL)on 09-02-2023 Interpretation and review of laboratory results Normal [facility] Tacrolimus (Bld) [Mass/Vol] 4.2 ng/mL [facility] Tacrolimus, Trough 4.2 ng/mL Normal Bone Susana ow Transplant: 4.0-12.0, Therapeutic: 5.0-15.0 [facility] Comment on above: Order Comment: Pleas e draw at specified interval PRIOR to dose. Do not hold dose to wait for level. Specimens batched twice per day, (M-F) and once per day weekendsMethod performed is a chemiluminescent microparticle immunoasssay on the [employer] i2000.The range is based on experience at [facility] and users should be aware that target concentrations vary widely depending on concomitant therapy, time post-transplant, and desired degree of immunosuppression. Performed By: #### T ACRO ####[facility] (DEFAULT)[address] [place] [address] CBC,PLATELETSon 09-01-2023 Erythrocyte distribution width (RBC) [Ratio] 13.4 % 10.9 - 14.3 % [facility] Hematocrit (Bld) [Volume fraction] 38.9 % Low 39.6 - 48.8 % [facility] Hemoglobin (Bld) [Mass/Vol] 12.7 g/dL Low 13.4 - 16.8 g/dL [facility] Interpretation and review of laboratory results Abnormal [facility] MCH (RBC) [Entitic mass] 27.6 pg 26.1 - 33.3 pg [facility] MCHC (RBC) [Mass/Vol] 32.6 g/dL 31.9 - 36.5 g/dL [facility] MCV (RBC) [Entitic vol] 84.6 fL 79.0 - 94.5 fL [facility] Platelet mean volume (Bld) [Entitic vol] 9.4 fL 8.7 - 12.3 fL [facility] Platelets (Bld) [#/Vol] 209 10*3/uL 146 - 337 K/uL [facility] RBC (Bld) [#/Vol] 4.60 10*6/uL [facility] WBC (Bld) [#/Vol] 4.41 10*3/uL 3.73 - 10. 10 K/uL [facility] Hematocrit (Bld) [Volume fraction] 38.9 % Low 39.6-48.8 [facility] Comment on above: Performed By: #### H [facility] ####[facility] (DEFAULT)[address] [place] [address] Hemoglobin (Bld) [Mass/Vol] 12.7 g/dL Low 13.4-16.8 [facility] Comment on above: Performed By: #### H EMO ####[facility] (DEFAULT)[address] [place] [address] MCV (RBC) [Entitic vol] 84.6 fL Normal 79.0-94.5 [facility] Comment on above: Performed By: #### H EMO ####[facility] (DEFAULT)[address] [place] [address] Mean Cell Hgb 27.6 pg Normal 26.1-33.3 [facility] Comment on above: Performed By: #### H EMO ####[facility] (DEFAULT)[address] [place] [address] Mean Cell Hgb Conc 32.6 g/dL Normal 31.9-36.5 [facility] Comment on above: Performed By: #### H EMO ####[facility] (DEFAULT)[address] [facility] [place] [address] Platelet mean volume (Bld) [Entitic vol] 9.4 fL Normal 8.7-12.3 [facility] Comment on above: Performed By: #### H EMO ####[facility] (DEFAULT)[address] [facility] [place] [address] Platelets (Bld) [#/Vol] 209 10*3/uL Normal 146-337 [facility] Comment on above: Performed By: #### H EMO ####[facility] (DEFAULT)[address] [facility] [place] [address] RBC (Bld) [#/Vol] 4.60 10*6/uL Normal 4.38-5.83 [facility] Comment on above: Performed By: #### H EMO ####[facility] (DEFAULT)[address] [facility] [place] [address] RBC Distribution 13.4 % Normal 10.9-14.3 [facility] Comment on above: Performed By: #### H EMO ####[facility] (DEFAULT)[address] [facility] [place] [address] WBC (Bld) [#/Vol] 4.41 10*3/uL Normal 3.73-10.10 [facility] Comment on above: Performed By: #### H EMO ####[facility] (DEFAULT)[address] [place] [address] CHEM 7 (LYTES,BUN,CREA,GLUC) on 09-01-2023 Anion gap [Moles/Vol] 14 mmol/L 7 - 17 mmol/L [facility] Chloride [Moles/Vol] 103 mmol/L 98 - 10 8 mmol/L [facility] CO2 [Moles/Vol] 21 mmol/L 21 - 31 mmol/L [facility] Creatinine [Mass/Vol] 1.16 mg/dL 0.70 - 1.30 mg/dL [facility] eGFR, CKD-EPI, Male 76 - PINF [facility] Glucose [Mass/Vol] 117 mg/dL High 70 - 99 mg/dL [facility] Osmolality Calc [O[facility]olality] [facility] Potassium [Moles/Vol] 4.2 mmol/L 3.5 - 5.0 mmol/L [facility] Sodium [Moles/Vol] 134 mmol/L Low 135 - 145 mmol/L [facility] Urea nitrogen [Mass/Vol] 18 mg/dL 7 - 25 mg/dL [facility] Urea nitrogen/Creatinine [Mass ratio] 16 mg/mg [facility] Anion gap [Moles/Vol] 14 mmol/L Normal 7-17 [facility] Comment on above: Performed By: #### NATHANIEL RAMÍREZ, HFP ####[facility] (DEFAULT)[address] [facility] [place] [address] Chloride [Moles/Vol] 103 mmol/L Normal 98-108 [facility] Comment on above: Performed By: #### NATHANIEL RAMÍREZ, HFP ####[facility] (DEFAULT)[address] [place] [address] CO2 [Moles/Vol] 21 mmol/L Normal 21-31 [facility] Comment on above: Performed By: #### NATHANIEL RAMÍREZ, HFP ####[facility] (DEFAULT)[address] [facility] [place] [address] Creatinine [Mass/Vol] 1.16 mg/dL Normal 0.70-1.30 [facility] Comment on above: Performed By: #### NATHANIEL RAMÍREZ, HFP ####[facility] (DEFAULT)[address] [facility] [place] [address] GFR/1.73 sq M.predicted among non-blacks MDRD (S/P/Bld) [Vol rate/Area] 76 mL/min/{1.73_m2} Normal >=60 [facility] Comment on above: Result Comment: Repo rted eGFR is based on the CKD-EPI 2020 equation using creatinine, age, and sex. Performed By: #### NATHANIEL RAMÍREZ, HFP ####[facility] (DEFAULT)[address] [place] [address] Glucose [Mass/Vol] 117 mg/dL High 70-99 [facility] Comment on above: Performed By: #### NATHANIEL RAMÍREZ, HFP ####[facility] (DEFAULT)[address] [place] [address] Osmolality [Osmolality] 285 mosm/kg Normal 278-305 [facility] Comment on above: Performed By: #### NATHANIEL RAMÍREZ, HFP ####[facility] (DEFAULT)[address] [place] [address] Potassium [Moles/Vol] 4.2 mmol/L Normal 3.5-5.0 [facility] Comment on above: Performed By: #### NATHANIEL RAMÍREZ, HFP ####[facility] (DEFAULT)[address] [place] [address] Sodium [Moles/Vol] 134 mmol/L Low 135-145 [facility] Comment on above: Performed By: #### NATHANIEL RAMÍREZ, HFP ####[facility] (DEFAULT)[address] [place] [address] Urea nitrogen [Mass/Vol] 18 mg/dL Normal 7-25 [facility] Comment on above: Performed By: #### NATHANIEL RAMÍREZ, HFP ####[facility] (DEFAULT)[address] [place] [address] Urea nitrogen/Creatinine [Mass ratio] 16 mg/mg Normal [facility] Comment on above: Performed By: #### NATHANIEL RAMÍREZ, HFP ####[facility] (DEFAULT)[address] [place] [address] CRYPTOCOCCAL ANTIGENon 09-01 Cryptococcus sp Ag Ql (S) Negative Negative [facility] Interpretation and review of laboratory results Normal [facility] Cryptococcus Antigen,Serum Negative Normal Negative [facility] Comment on above: Performed By: #### C RAG ####[facility] (DEFAULT)[address] [place] [address] HEPATIC FUNCTION PANELon Albumin [Mass/Vol] 3.3 g/dL Low 3.5 - 5.0 g/dL [facility] ALP [Catalytic activity/Vol] 112 U/L 32 - 126 U/L [facility] ALT [Catalytic activity/Vol] 21 U/L 10 - 52 U/L [facility] AST [Catalytic activity/Vol] 29 U/L 10 - 39 U/L [facility] Bilirubin [Mass/Vol] 1.0 mg/dL NINF - 1.5 mg/dL [facility] Bilirubin.direct [Mass/Vol] 0.2 mg/dL [facility] mg/dL [facility] Protein [Mass/Vol] 6.8 g/dL 6.4 - 8.3 g/dL [facility] Albumin [Mass/Vol] 3.3 g/dL Low 3.5-5.0 [facility] Comment on above: Performed By: #### NATHANIEL RAMÍREZ, HFP ####[facility] (DEFAULT)[address] [place] [address] ALP [Catalytic activity/Vol] 112 U/L Normal 32-126 [facility] Comment on above: Performed By: #### NATHANIEL RAMÍREZ, HFP ####[facility] (DEFAULT)[address] [place] [place] [address] ALT [Catalytic activity/Vol] 21 U/L Normal 10-52 [facility] Comment on above: Performed By: #### M HELEN BLOOMM7, HFP ####[facility] (DEFAULT)[address] [place] [address] AST [Catalytic activity/Vol] 29 U/L Normal 10-39 [facility] Comment on above: Performed By: #### Rod BLOOM CHM7, HFP ####[facility] (DEFAULT)[address] [place] [address] Bilirubin [Mass/Vol] 1.0 mg/dL Normal <1.5 [facility] Comment on above: Performed By: #### Rod BLOOM CHM7, HFP ####[facility] (DEFAULT)[address] [place] [address] Bilirubin.indirect [Mass/Vol] 0.2 mg/dL Normal <0.3 [facility] Comment on above: Performed By: #### NATHANIEL RAMÍREZ, HFP ####[facility] (DEFAULT)[address] [place] [address] Protein [Mass/Vol] 6.8 g/dL Normal 6.4-8.3 [facility] Comment on above: Performed By: #### TJ RAMÍREZ7, HFP ####[facility] (DEFAULT)[address] [place] [address] L. pneumophila 1 Ag IA Ql (U )Ordered By: Carolin Miles on 09-01-2023 Interpretation and review of laboratory results Normal [facility] LEGIONELLA URINARY AGOrdered By: Carolin Miles on 09-01-2023 L. pneumophila 1 Ag IA Ql (U) Negative Negative [facility] MAGNESIUMon 09-01-2023 Interpretation and review of laboratory results Normal [facility] Magnesium [Mass/Vol] 1.6 mg/dL 1.6 - 2 .6 mg/dL [facility] Magnesium [Mass/Vol] 1.6 mg/dL Normal 1.6-2.6 [facility] Comment on above: Performed By: #### M , CHM7, [facility] ####[facility] (DEFAULT)[address] [place] [address] No Panel Informationon 09-01 Interpretation and review of laboratory results Abnormal [facility] PARVOVIRUS (B19) DNA, PCR, B LOODon 09-01-2023 PARVOVIRUS B19 BY RAPID PCR Not detected Normal Not Detected [facility] Comment on above: Result Comment: The primers/probe used in this assay will detectparvovirus B19 and V9 (genotypes 1 # 3) but maynot detect parvovirus genotype 2. The majority ofcirculating Parvovirus B19 strains in the [facility] are genotype 1. Genotype 2 is not believed tocirculate widely in the [facility], but has beenassociated with similar clinical features as genotype1. Genotype 3 is most prevalent in some [place] [facility] [place].This test was developed and its analyticalperformance characteristics have been determinedby [employer] [place], [place].It has not been cleared or approved by the FDA. Thisassay has been validated pursuant to the CLIAregulations and is used for clinical purposes.Test Performed at:[employer] [address] [id number] Benavides M.D., Ph.D.,Director of Laboratories Performed By: #### Y PRVP ####[facility] (DEFAULT)[address] [place] [address] [place] SPEC SOURCE Whole Blood Normal [facility] Comment on above: Performed By: #### Y PRVP ####[facility] (DEFAULT)[address] [place] [address] ASPERGILLUS (GALACTOMANNAN), ANTIGENon 08-31-2023 Aspergillus Antigen <0.500 Normal <0.5 [facility] Comment on above: Result Comment: ---- ADDITIONAL INFORMATION This is a qualitative test and the resulted index value isnot indicative of disease severity. Serial testing isrecommended for patients at high risk for invasiveaspergillosis.This assay was performed using the FDA-cleared [employer] Aspergillus Galactomannan EIA.Test Performed by:[facility] [place], [place] [address]Any Director: Rosendo Bose M.D. Ph.D.; CLIA# [id number] Performed By: #### Y ASPR ####[facility] (DEFAULT)[address] [place] [address] CBC,PLATELETSon 08-31-2023 Erythrocyte distribution width (RBC) [Ratio] 13.3 % 10.9 - 14.3 % [facility] Hematocrit (Bld) [Volume fraction] 39.4 % Low 39.6 - 48.8 % [facility] Hemoglobin (Bld) [Mass/Vol] 12.8 g/dL Low 13.4 - 16.8 g/dL [facility] Interpretation and review of laboratory results Abnormal [facility] MCH (RBC) [Entitic mass] 27.6 pg 26.1 - 33.3 pg [facility] MCHC (RBC) [Mass/Vol] 32.5 g/dL 31.9 - 36.5 g/dL [facility] MCV (RBC) [Entitic vol] 85.1 fL 79.0 - 94.5 fL [facility] Platelet mean volume (Bld) [Entitic vol] 9.6 fL 8.7 - 12.3 fL [facility] Platelets (Bld) [#/Vol] 228 10*3/uL 146 - 337 K/uL [facility] RBC (Bld) [#/Vol] 4.63 10*6/uL [facility] WBC (Bld) [#/Vol] 4.77 10*3/uL 3.73 - 10. 10 K/uL [facility] Hematocrit (Bld) [Volume fraction] 39.4 % Low 39.6-48.8 [facility] Comment on above: Performed By: #### H EMOGC ####[facility] (DEFAULT)[address] [place] [address] Hemoglobin (Bld) [Mass/Vol] 12.8 g/dL Low 13.4-16.8 [facility] Comment on above: Performed By: #### H EMOGC ####[facility] (DEFAULT)[address] [place] [address] MCV (RBC) [Entitic vol] 85.1 fL Normal 79.0-94.5 [facility] Comment on above: Performed By: #### H EMOGC ####[facility] (DEFAULT)[address] [place] [address] Mean Cell Hgb 27.6 pg Normal 26.1-33.3 [facility] Comment on above: Performed By: #### H EMOGC ####[facility] (DEFAULT)[address] [facility] [place] [address] Mean Cell Hgb Conc 32.5 g/dL Normal 31.9-36.5 [facility] Comment on above: Performed By: #### H EMOGC ####[facility] (DEFAULT)[address] [place] [address] Platelet mean volume (Bld) [Entitic vol] 9.6 fL Normal 8.7-12.3 [facility] Comment on above: Performed By: #### H EMOGC ####[facility] (DEFAULT)[address] [place] [address] Platelets (Bld) [#/Vol] 228 10*3/uL Normal 146-337 [facility] Comment on above: Performed By: #### H EMOGC ####[facility] (DEFAULT)[address] [place] [address] RBC (Bld) [#/Vol] 4.63 10*6/uL Normal 4.38-5.83 [facility] Comment on above: Performed By: #### H EMOGC ####[facility] (DEFAULT)[address] [place] [address] RBC Distribution 13.3 % Normal 10.9-14.3 [facility] Comment on above: Performed By: #### H [facility] ####[facility] (DEFAULT)[address] [place] [address] WBC (Bld) [#/Vol] 4.77 10*3/uL Normal 3.73-10.10 [facility] Comment on above: Performed By: #### H [facility] ####[facility] (DEFAULT)[address] [place] [address] CHEM 7 (LYTES,BUN,CREA,GLUC) on 08-31-2023 Anion gap [Moles/Vol] 13 mmol/L 7 - 17 mmol/L [facility] Chloride [Moles/Vol] 102 mmol/L 98 - 10 8 mmol/L [facility] CO2 [Moles/Vol] 23 mmol/L 21 - 31 mmol/L [facility] Creatinine [Mass/Vol] 1.37 mg/dL High 0.70 - 1.30 mg/dL [facility] eGFR, CKD-EPI, Male 62 - PINF [facility] Glucose [Mass/Vol] 112 mg/dL High 70 - 99 mg/dL [facility] Osmolality Calc [Osmolality] 284 [facility] Potassium [Moles/Vol] 4.4 mmol/L 3.5 - 5.0 mmol/L [facility] Sodium [Moles/Vol] 134 mmol/L Low 135 - 145 mmol/L [facility] Urea nitrogen [Mass/Vol] 16 mg/dL 7 - 25 mg/dL [facility] Urea nitrogen/Creatinine [Mass ratio] 12 mg/mg [facility] Anion gap [Moles/Vol] 13 mmol/L Normal 7-17 [facility] Comment on above: Performed By: #### M GO, CHM7, HFP, FERIB, PROCAL ####U [facility] (DEFAULT)[address] [place] [address] Chloride [Moles/Vol] 102 mmol/L Normal 98-108 [facility] Comment on above: Performed By: #### M GO, CHM7, HFP, FERIB, PROCAL ####[facility] (DEFAULT)[address] [place] [address] CO2 [Moles/Vol] 23 mmol/L Normal 21-31 [facility] Comment on above: Performed By: #### M GO, CHM7, HFP, FERIB, PROCAL ####[facility] (DEFAULT)[address] [facility] [place] [address] Creatinine [Mass/Vol] 1.37 mg/dL High 0.70-1.30 [facility] Comment on above: Performed By: #### M GO, CHM7, HFP, FERIB, PROCAL ####[facility] (DEFAULT)[address] [place] [place] [address] GFR/1.73 sq M.predicted among non-blacks MDRD (S/P/Bld) [Vol rate/Area] 62 mL/min/{1.73_m2} Normal >=60 [facility] Comment on above: Result Comment: Repo rted eGFR is based on the CKD-EPI 2020 equation using creatinine, age, and sex. Performed By: #### M GO, CHM7, HFP, FERIB, PROCAL ####[facility] (DEFAULT)[address] [place] [place] [address] Glucose [Mass/Vol] 112 mg/dL High 70-99 [facility] Comment on above: Performed By: #### M GO, CHM7, HFP, FERIB, PROCAL ####[facility] (DEFAULT)[address] [facility] [place] [address] Osmolality [Osmolality] 284 mosm/kg Normal 278-305 [facility] Comment on above: Performed By: #### M GO, CHM7, HFP, FERIB, PROCAL ####[facility] (DEFAULT)[address] [place] [address] Potassium [Moles/Vol] 4.4 mmol/L Normal 3.5-5.0 [facility] Comment on above: Performed By: #### M GO, CHM7, HFP, FERIB, PROCAL ####[facility] [place] [address] Sodium [Moles/Vol] 134 mmol/L Low 135-145 [facility] Comment on above: Performed By: #### M GO, CHM7, HFP, FERIB, PROCAL ####[facility] (DEFAULT)[address] [place] [address] Urea nitrogen [Mass/Vol] 16 mg/dL Normal 7-25 [facility] Comment on above: Performed By: #### M GO, CHM7, HFP, FERIB, PROCAL ####[facility] (DEFAULT)[address] [place] [address] Urea nitrogen/Creatinine [Mass ratio] 12 mg/mg Normal [facility] Comment on above: Performed By: #### M GO, CHM7, HFP, FERIB, PROCAL ####[facility] (DEFAULT)[address] [facility] [place] [address] [place] ABDOMEN/PELVIS WITHOUT CO NTRASTon 08-31-2023 CT ABDOMEN/PELVIS WITHOUT CONTRAST Normal [facility] CT Abdomen and Pelvis WO con traston 08-31-2023 RADIOLOGY RADIOLOGY [facility] Radiology Study observation (narrative) [facility] CT Abdomen and Pelvis WO con trastOrdered By: Chavez Larkin on 08-31-2023 [facility] Work Phone: CT CHEST WITHOUT CONTRASTon 08-31-2023 CT CHEST WITHOUT CONTRAST Normal [facility] CT Chest WO contraston 08-31 RADIOLOGY RADIOLOGY [facility] Radiology Study observation (narrative) [facility] CT Chest WO contrastOrdered By: Daisha Patterson on 08-31-2023 [facility] Work Phone: FERRITINon 08-31-2023 Ferritin [Mass/Vol] 409.0 ng/mL High 10.5 - 3 07.3 ng/mL [facility] Interpretation and review of laboratory results Abnormal [facility] Ferritin [Mass/Vol] 409.0 ng/mL High 10.5-307.3 [facility] Comment on above: Performed By: #### M HELEN BLOOMM7, HFP, FERIB, PROCAL ####[facility] (DEFAULT)[address] [place] [address] HEPATIC FUNCTION PANELon Albumin [Mass/Vol] 3.3 g/dL Low 3.5 - 5.0 g/dL [facility] ALP [Catalytic activity/Vol] 113 U/L 32 - 126 U/L [facility] ALT [Catalytic activity/Vol] 25 U/L 10 - 52 U/L [facility] AST [Catalytic activity/Vol] 31 U/L 10 - 39 U/L [facility] Bilirubin [Mass/Vol] 1.1 mg/dL NINF - 1.5 mg/dL [facility] Bilirubin.direct [Mass/Vol] 0.3 mg/dL High NINF - 0.3 mg/dL [facility] Protein [Mass/Vol] 7.0 g/dL 6.4 - 8.3 g/dL [facility] Albumin [Mass/Vol] 3.3 g/dL Low 3.5-5.0 [facility] Comment on above: Performed By: #### M MERLE CHM7, HFP, FERIB, PROCAL ####[facility] (DEFAULT)[address] [place] [address] ALP [Catalytic activity/Vol] 113 U/L Normal 32-126 [facility] Comment on above: Performed By: #### M MERLE CHM7, HFP, FERIB, PROCAL ####[facility] (DEFAULT)[address] [place] [address] ALT [Catalytic activity/Vol] 25 U/L Normal 10-52 [facility] Comment on above: Performed By: #### M GO, CHM7, HFP, FERIB, PROCAL ####[facility] (DEFAULT)[address] [place] [address] AST [Catalytic activity/Vol] 31 U/L Normal 10-39 [facility] Comment on above: Performed By: #### M GO, CHM7, HFP, FERIB, PROCAL ####[facility] (DEFAULT)[address] [place] [address] Bilirubin [Mass/Vol] 1.1 mg/dL Normal <1.5 [facility] Comment on above: Performed By: #### M GO, CHM7, HFP, FERIB, PROCAL ####[facility] (DEFAULT)[address] [place] [address] Bilirubin.indirect [Mass/Vol] 0.3 mg/dL High <0.3 [facility] Comment on above: Performed By: #### M GO, CHM7, HFP, FERIB, PROCAL ####[facility] (DEFAULT)[address] [place] [address] Protein [Mass/Vol] 7.0 g/dL Normal 6.4-8.3 [facility] Comment on above: Performed By: #### M GO, CHM7, HFP, FERIB, PROCAL ####[facility] (DEFAULT)[address] [place] [address] LEGIONELLA URINARY AGon - Legionella Urinary Antigen Negative Normal Negative [facility] Comment on above: Performed By: #### L EGION ####[facility] (DEFAULT)[address] [place] [address] MAGNESIUMon 08-31-2023 Interpretation and review of laboratory results Normal [facility] Magnesium [Mass/Vol] 1.7 mg/dL 1.6 - 2 .6 mg/dL [facility] Magnesium [Mass/Vol] 1.7 mg/dL Normal 1.6-2.6 [facility] Comment on above: Performed By: #### M MERLE, CHM7, HFP, FERIB, PROCAL ####[facility] (DEFAULT)[address] [place] [address] No Panel Informationon 08-31 Interpretation and review of laboratory results Abnormal [facility] PROCALCITONINon 08-31-2023 Interpretation and review of laboratory results Normal [facility] Procalcitonin [Mass/Vol] 0.23 ng/mL NINF - 0.50 ng/mL [facility] Procalcitonin 0.23 ng/mL Normal <0.50 [facility] Comment on above: Result Comment: Proc [...] and trend procalcitonin in various clinical settings. [email or web address]=/[email or web address] [email or web address]&action=[email or web address] common cutoffs associated with bacterial infections are as follows.Respiratory tract infections: >0.25 ng/mLSepsis/septic shock: >0.5 ng/mLProcalcitonin should not be used alone as a diagnostic tool, however. All procalcitonin results should be interpreted in association with the patients clinical condition and all laboratory findings. Performed By: #### M MERLE, CHM7, HFP, FERIB, PROCAL ####[facility] (DEFAULT)[address] [place] [address] TACROLIMUS LEVEL, TROUGH ([place] E DRUG LEVEL)Ordered By: Yanira Marcum on 08-31-2023 Interpretation and review of laboratory results Normal [facility] Tacrolimus (Bld) [Mass/Vol] 5.9 ng/mL [facility] TACROLIMUS LEVEL, TROUGH ([place] E DRUG LEVEL)on 08-31-2023 Tacrolimus, Trough 5.9 ng/mL Normal [facility] Sus[facility] ow Transplant: 4.0-12.0, Therapeutic: 5.0-15.0 [facility] Comment on above: Order Comment: Pleas e draw at specified interval PRIOR to dose. Do not hold dose to wait for level. Specimens batched twice per day, (M-F) and once per day weekendsMethod performed is a chemiluminescent microparticle immunoasssay on the [employer] Supervisor Files i2000.The range is based on experience at [facility] and users should be aware that target concentrations vary widely depending on concomitant therapy, time post-transplant, and desired degree of immunosuppression. Performed By: #### T ACRO ####[facility] (DEFAULT)[address] [place] [address] URINE CULTUREOrdered By: Jorge Loazno on 08-31-2023 Bacteria identified Cx Nom (Unsp spec) No Growth [facility] DARYL AURIS SCREEN BY PCRO rdered By: Mynor Alejandro on 08-30-2023 Daryl auris Screen by PCR Not detected Not Detected [facility] Interpretation and review of laboratory results Normal [facility] CBC,PLATELETSon 08-30-2023 Erythrocyte distribution width (RBC) [Ratio] 13.3 % 10.9 - 14.3 % [facility] Hematocrit (Bld) [Volume fraction] 41.3 % 39.6 - 48.8 % [facility] Hemoglobin (Bld) [Mass/Vol] 13.2 g/dL Low 13.4 - 16.8 g/dL [facility] Interpretation and review of laboratory results Abnormal [facility] MCH (RBC) [Entitic mass] 27.3 pg 26.1 - 33.3 pg [facility] MCHC (RBC) [Mass/Vol] 32.0 g/dL 31.9 - 36.5 g/dL [facility] MCV (RBC) [Entitic vol] 85.5 fL 79.0 - 94.5 fL [facility] Platelet mean volume (Bld) [Entitic vol] 9.2 fL 8.7 - 12.3 fL [facility] Platelets (Bld) [#/Vol] 235 10*3/uL 146 - 337 K/uL [facility] RBC (Bld) [#/Vol] 4.83 10*6/uL [facility] WBC (Bld) [#/Vol] 4.96 10*3/uL 3.73 - 10. 10 K/uL [facility] Hematocrit (Bld) [Volume fraction] 41.3 % Normal 39.6-48.8 [facility] Comment on above: Performed By: #### H [facility] ####[facility] (DEFAULT)[address] [place] [address] Hemoglobin (Bld) [Mass/Vol] 13.2 g/dL Low 13.4-16.8 [facility] Comment on above: Performed By: #### H [facility] ####[facility] (DEFAULT)[address] [place] [address] MCV (RBC) [Entitic vol] 85.5 fL Normal 79.0-94.5 [facility] Comment on above: Performed By: #### [facility] ####[facility] (DEFAULT)[address] [place] [address] Mean Cell Hgb 27.3 pg Normal 26.1-33.3 [facility] Comment on above: Performed By: #### H [facility] ####[facility] (DEFAULT)[address] [place] [address] Mean Cell Hgb Conc 32.0 g/dL Normal 31.9-36.5 [facility] Comment on above: Performed By: #### H EMO ####[facility] (DEFAULT)[address] [place] [address] Platelet mean volume (Bld) [Entitic vol] 9.2 fL Normal 8.7-12.3 [facility] Comment on above: Performed By: #### H EMO ####[facility] (DEFAULT)[address] [place] [address] Platelets (Bld) [#/Vol] 235 10*3/uL Normal 146-337 [facility] Comment on above: Performed By: #### H EMO ####[facility] (DEFAULT)[address] [place] [address] RBC (Bld) [#/Vol] 4.83 10*6/uL Normal 4.38-5.83 [facility] Comment on above: Performed By: #### H EMO ####[facility] (DEFAULT)[address] [place] [address] RBC Distribution 13.3 % Normal 10.9-14.3 [facility] Comment on above: Performed By: #### H EMO ####[facility] (DEFAULT)[address] [place] [address] WBC (Bld) [#/Vol] 4.96 10*3/uL Normal 3.73-10.10 [facility] Comment on above: Performed By: #### H EMOGC ####[facility] (DEFAULT)[address] [place] [address] CHEM 7 (LYTES,BUN,CREA,GLUC) on 08-30-2023 Anion gap [Moles/Vol] 14 mmol/L 7 - 17 mmol/L [facility] Chloride [Moles/Vol] 102 mmol/L 98 - 10 8 mmol/L [facility] CO2 [Moles/Vol] 20 mmol/L Low 21 - 31 [facility]/L [facility] Creatinine [Mass/Vol] 1.56 mg/dL High 0.70 - 1.30 mg/dL [facility] eGFR, CKD-EPI, Male 53 Low - PINF [facility] Glucose [Mass/Vol] 123 mg/dL High 70 - 99 mg/dL [facility] Osmolality Calc [Osmolality] 281 [facility] Potassium [Moles/Vol] 4.3 mmol/L 3.5 - 5.0 mmol/L [facility] Sodium [Moles/Vol] 132 mmol/L Low 135 - 145 mmol/L [facility] Urea nitrogen [Mass/Vol] 16 mg/dL 7 - 25 mg/dL [facility] Urea nitrogen/Creatinine [Mass ratio] 10 mg/mg [facility] Anion gap [Moles/Vol] 14 mmol/L Normal 7-17 [facility] Comment on above: Performed By: #### NATHANIEL RAMÍREZ, HFP ####[facility] (DEFAULT)[address] [place] [address] Chloride [Moles/Vol] 102 mmol/L Normal 98-108 [facility] Comment on above: Performed By: #### NATHANIEL RAMÍREZ, HFP ####[facility] (DEFAULT)[address] [place] [place] [address] CO2 [Moles/Vol] 20 mmol/L Low 21-31 [facility] Comment on above: Performed By: #### NATHANIEL RAMÍREZ, HFP ####[facility] (DEFAULT)[address] [facility] [place] [address] Creatinine [Mass/Vol] 1.56 mg/dL High 0.70-1.30 [facility] Comment on above: Performed By: #### TJ RAMÍREZ7, HFP ####[facility] (DEFAULT)[address] [place] [place] [address] GFR/1.73 sq M.predicted among non-blacks MDRD (S/P/Bld) [Vol rate/Area] 53 mL/min/{1.73_m2} Low >=60 [facility] Comment on above: Result Comment: Repo rted eGFR is based on the CKD-EPI 2020 equation using creatinine, age, and sex. Performed By: #### NATHANIEL RAMÍREZ, HFP ####[facility] (DEFAULT)[address] [place] [address] Glucose [Mass/Vol] 123 mg/dL High 70-99 [facility] Comment on above: Performed By: #### NATHANIEL RAMÍREZ, HFP ####[facility] (DEFAULT)[address] [place] [address] Osmolality [Osmolality] 281 mosm/kg Normal 278-305 [facility] Comment on above: Performed By: #### NATHANIEL RAMÍREZ, HFP ####[facility] (DEFAULT)[address] [place] [address] Potassium [Moles/Vol] 4.3 mmol/L Normal 3.5-5.0 [facility] Comment on above: Performed By: #### NATHANIEL RAMÍREZ, HFP ####[facility] (DEFAULT)[address] [place] [address] Sodium [Moles/Vol] 132 mmol/L Low 135-145 [facility] Comment on above: Performed By: #### NATHANIEL RAMÍREZ, HFP ####[facility] (DEFAULT)[address] [place] [address] Urea nitrogen [Mass/Vol] 16 mg/dL Normal 7-25 [facility] Comment on above: Performed By: #### NATHANIEL RAMÍREZ, HFP ####[facility] (DEFAULT)[address] [place] [address] Urea nitrogen/Creatinine [Mass ratio] 10 mg/mg Normal [facility] Comment on above: Performed By: #### NATHANIEL RAMÍREZ, HFP ####[facility] (DEFAULT)[address] [facility] [place] [place] [address] EXTRA MICROon 08-30-2023 [facility] HEPATIC FUNCTION PANELon Albumin [Mass/Vol] 3.7 g/dL 3.5 - 5.0 g/dL [facility] ALP [Catalytic activity/Vol] 115 U/L 32 - 126 U/L [facility] ALT [Catalytic activity/Vol] 22 U/L 10 - 52 U/L [facility] AST [Catalytic activity/Vol] 34 U/L 10 - 39 U/L [facility] Bilirubin [Mass/Vol] 1.2 mg/dL NINF - 1.5 mg/dL [facility] Bilirubin.direct [Mass/Vol] 0.3 mg/dL High NINF - 0.3 mg/dL [facility] Protein [Mass/Vol] 7.7 g/dL 6.4 - 8.3 g/dL [facility] Albumin [Mass/Vol] 3.7 g/dL Normal 3.5-5.0 [facility] Comment on above: Performed By: #### NATHANIEL RAMÍREZ, HFP ####[facility] (DEFAULT)[address] [facility] [place] [address] ALP [Catalytic activity/Vol] 115 U/L Normal 32-126 [facility] Comment on above: Performed By: #### NATHANIEL RAMÍREZ, HFP ####[facility] (DEFAULT)[address] [facility] [place] [address] ALT [Catalytic activity/Vol] 22 U/L Normal 10-52 [facility] Comment on above: Performed By: #### NATHANIEL RAMÍREZ, HFP ####[facility] (DEFAULT)[address] [place] [address] AST [Catalytic activity/Vol] 34 U/L Normal 10-39 [facility] Comment on above: Performed By: #### NATHANIEL RAMÍREZ, HFP ####[facility] (DEFAULT)[address] [place] [place] [address] Bilirubin [Mass/Vol] 1.2 mg/dL Normal <1.5 [facility] Comment on above: Performed By: #### NATHANIEL RAMÍREZ, HFP ####[facility] (DEFAULT)[address] [place] [address] Bilirubin.indirect [Mass/Vol] 0.3 mg/dL High <0.3 [facility] Comment on above: Performed By: #### NATHANIEL RAMÍREZ, HFP ####[facility] (DEFAULT)[address] [place] [address] Protein [Mass/Vol] 7.7 g/dL Normal 6.4-8.3 [facility] Comment on above: Performed By: #### NATHANIEL RAMÍREZ, HFP ####[facility] (DEFAULT)[address] [place] [address] MAGNESIUMon 08-30-2023 Interpretation and review of laboratory results Normal [facility] Magnesium [Mass/Vol] 1.8 mg/dL 1.6 - 2 .6 mg/dL [facility] Magnesium [Mass/Vol] 1.8 mg/dL Normal 1.6-2.6 [facility] Comment on above: Performed By: #### NATHANIEL RAMÍREZ, HFP ####[facility] (DEFAULT)[address] [place] [address] No Panel Informationon 08-30 Interpretation and review of laboratory results Abnormal [facility] CBC,PLATELETSon 08-29-2023 Erythrocyte distribution width (RBC) [Ratio] 13.4 % 10.9 - 14.3 % [facility] Hematocrit (Bld) [Volume fraction] 37.6 % Low 39.6 - 48.8 % [facility] Hemoglobin (Bld) [Mass/Vol] 12.2 g/dL Low 13.4 - 16.8 g/dL [facility] Interpretation and review of laboratory results Abnormal [facility] MCH (RBC) [Entitic mass] 27.6 pg 26.1 - 33.3 pg [facility] MCHC (RBC) [Mass/Vol] 32.4 g/dL 31.9 - 36.5 g/dL [facility] MCV (RBC) [Entitic vol] 85.1 fL 79.0 - 94.5 fL [facility] Platelet mean volume (Bld) [Entitic vol] 9.4 fL 8.7 - 12.3 fL [facility] Platelets (Bld) [#/Vol] 233 10*3/uL 146 - 337 K/uL [facility] RBC (Bld) [#/Vol] 4.42 10*6/uL [facility] WBC (Bld) [#/Vol] 4.92 10*3/uL 3.73 - 10. 10 K/uL [facility] Hematocrit (Bld) [Volume fraction] 37.6 % Low 39.6-48.8 [facility] Comment on above: Performed By: #### H [facility] ####[facility] (DEFAULT)[address] [place] [address] Hemoglobin (Bld) [Mass/Vol] 12.2 g/dL Low 13.4-16.8 [facility] Comment on above: Performed By: #### H EMO ####[facility] (DEFAULT)[address] [place] [address] MCV (RBC) [Entitic vol] 85.1 fL Normal 79.0-94.5 [facility] Comment on above: Performed By: #### H EMO ####[facility] (DEFAULT)[address] [place] [address] Mean Cell Hgb 27.6 pg Normal 26.1-33.3 [facility] Comment on above: Performed By: #### H EMO ####[facility] (DEFAULT)[address] [place] [place] [address] Mean Cell Hgb Conc 32.4 g/dL Normal 31.9-36.5 [facility] Comment on above: Performed By: #### H EMOGC ####[facility] (DEFAULT)[address] [facility] [place] [address] Platelet mean volume (Bld) [Entitic vol] 9.4 fL Normal 8.7-12.3 [facility] Comment on above: Performed By: #### H EMO ####[facility] (DEFAULT)[address] [place] [address] Platelets (Bld) [#/Vol] 233 10*3/uL Normal 146-337 [facility] Comment on above: Performed By: #### H EMO ####[facility] (DEFAULT)[address] [place] [address] RBC (Bld) [#/Vol] 4.42 10*6/uL Normal 4.38-5.83 [facility] Comment on above: Performed By: #### H EMO ####[facility] (DEFAULT)[address] [place] [place] [address] RBC Distribution 13.4 % Normal 10.9-14.3 [facility] Comment on above: Performed By: #### H EMOGC ####[facility] (DEFAULT)[address] [place] [address] WBC (Bld) [#/Vol] 4.92 10*3/uL Normal 3.73-10.10 [facility] Comment on above: Performed By: #### H EMOGC ####[facility] (DEFAULT)[address] [place] [address] CHEM 7 (LYTES,BUN,CREA,GLUC) on 08-29-2023 Anion gap [Moles/Vol] 13 mmol/L 7 - 17 mmol/L [facility] Chloride [Moles/Vol] 105 mmol/L 98 - 10 8 mmol/L [facility] CO2 [Moles/Vol] 20 mmol/L Low 21 - 31 mmol/L [facility] Creatinine [Mass/Vol] 1.55 mg/dL High 0.70 - 1.30 mg/dL [facility] eGFR, CKD-EPI, Male 55 Low - PINF [facility] Glucose [Mass/Vol] 108 mg/dL High 70 - 99 mg/dL [facility] Osmolality Calc [Osmolality] 283 [facility] Potassium [Moles/Vol] 4.5 mmol/L 3.5 - 5.0 mmol/L [facility] Sodium [Moles/Vol] 133 mmol/L Low 135 - 145 mmol/L [facility] Urea nitrogen [Mass/Vol] 19 mg/dL 7 - 25 mg/dL [facility] Urea nitrogen/Creatinine [Mass ratio] 12 mg/mg [facility] Anion gap [Moles/Vol] 13 mmol/L Normal 7-17 [facility] Comment on above: Performed By: #### H FP, GGTB, MGO, CHM7 ####[facility] (DEFAULT)[address] [place] [place] [address] Chloride [Moles/Vol] 105 mmol/L Normal 98-108 [facility] Comment on above: Performed By: #### H FP, GGTB, MGO, CHM7 ####[facility] (DEFAULT)[address] [place] [place] [address] CO2 [Moles/Vol] 20 mmol/L Low 21-31 [facility] Comment on above: Performed By: #### H FP, GGTB, MGO, CHM7 ####[facility] (DEFAULT)[address] [place] [address] Creatinine [Mass/Vol] 1.55 mg/dL High 0.70-1.30 [facility] Comment on above: Performed By: #### H FP, GGTB, MGO, CHM7 ####[facility] (DEFAULT)[address] [place] [place] [address] GFR/1.73 sq M.predicted among non-blacks MDRD (S/P/Bld) [Vol rate/Area] 54 mL/min/{1.73_m2} Low >=60 [facility] Comment on above: Result Comment: Repo rted eGFR is based on the CKD-EPI 2020 equation using creatinine, age, and sex. Performed By: #### H FP, GGTB, MGO, CHM7 ####[facility] (DEFAULT)[address] [facility] [place] [address] Glucose [Mass/Vol] 108 mg/dL High 70-99 [facility] Comment on above: Performed By: #### H FP, GGTB, MGO, CHM7 ####[facility] (DEFAULT)[address] [place] [place] [address] Osmolality [Osmolality] 283 mosm/kg Normal 278-305 [facility] Comment on above: Performed By: #### H FP, GGTB, MGO, CHM7 ####[facility] (DEFAULT)[address] [facility] [place] [address] Potassium [Moles/Vol] 4.5 mmol/L Normal 3.5-5.0 [facility] Comment on above: Performed By: #### H FP, GGTB, MGO, CHM7 ####[facility] (DEFAULT)[address] [facility] [place] [address] Sodium [Moles/Vol] 133 mmol/L Low 135-145 [facility] Comment on above: Performed By: #### H FP, GGTB, MGO, CHM7 ####[facility] (DEFAULT)[address] [place] [address] Urea nitrogen [Mass/Vol] 19 mg/dL Normal 7-25 [facility] Comment on above: Performed By: #### H FP, GGTB, MGO, CHM7 ####[facility] (DEFAULT)[address] [place] [address] Urea nitrogen/Creatinine [Mass ratio] 12 mg/mg Normal [facility] Comment on above: Performed By: #### H FP, GGTB, MGO, CHM7 ####[facility] (DEFAULT)[address] [place] [address] GGTon 08-29-2023 Gamma glutamyl transferase [Catalytic activity/Vol] 64 U/L 8 - 64 U/L [facility] Interpretation and review of laboratory results Normal [facility] Gamma glutamyl transferase [Catalytic activity/Vol] 64 U/L Normal 8-64 [facility] Comment on above: Performed By: #### H FP, GGTB, MGO, CHM7 ####[facility] (DEFAULT)[address] [place] [address] HEPATIC FUNCTION PANELon Albumin [Mass/Vol] 3.3 g/dL Low 3.5 - 5.0 g/dL [facility] ALP [Catalytic activity/Vol] 103 U/L 32 - 126 U/L [facility] ALT [Catalytic activity/Vol] 18 U/L 10 - 52 U/L [facility] AST [Catalytic activity/Vol] 27 U/L 10 - 39 U/L [facility] Bilirubin [Mass/Vol] 1.1 mg/dL NINF - 1.5 mg/dL [facility] Bilirubin.direct [Mass/Vol] 0.3 mg/dL High NINF - 0.3 mg/dL [facility] Protein [Mass/Vol] 6.8 g/dL 6.4 - 8.3 g/dL [facility] Albumin [Mass/Vol] 3.3 g/dL Low 3.5-5.0 [facility] Comment on above: Performed By: #### H FP, GGTB, MGO, CHM7 ####[facility] (DEFAULT)[address] [place] [address] ALP [Catalytic activity/Vol] 103 U/L Normal 32-126 [facility] Comment on above: Performed By: #### H FP, GGTB, MGO, CHM7 ####[facility] (DEFAULT)[address] [place] [address] ALT [Catalytic activity/Vol] 18 U/L Normal 10-52 [facility] Comment on above: Performed By: #### H FP, GGTB, MGO, CHM7 ####[facility] (DEFAULT)[address] [place] [address] AST [Catalytic activity/Vol] 27 U/L Normal 10-39 [facility] Comment on above: Performed By: #### H FP, GGTB, MGO, CHM7 ####[facility] (DEFAULT)[address] [place] [address] Bilirubin [Mass/Vol] 1.1 mg/dL Normal <1.5 [facility] Comment on above: Performed By: #### H FP, GGTB, MGO, CHM7 ####[facility] (DEFAULT)[address] [place] [address] Bilirubin.indirect [Mass/Vol] 0.3 mg/dL High <0.3 [facility] Comment on above: Performed By: #### H FP, GGTB, MGO, CHM7 ####[facility] (DEFAULT)[address] [facility] [place] [address] Protein [Mass/Vol] 6.8 g/dL Normal 6.4-8.3 [facility] Comment on above: Performed By: #### H FP, GGTB, MGO, CHM7 ####[facility] (DEFAULT)[address] [place] [address] HISTOPLASMA AND BLASTOMYCES ANTIGEN, ENZYME IMMUNOASSAY, SERMon 08-29-2023 Histoplasma/Blastomy antonia Ag Result Detected Invalid Interpretation Code Not Detected [facility] Comment on above: Result Comment: Anti gen from Histoplasma or Blastomyces (unable todifferentiate) detected. Result should be correlated withclinical presentation, exposure history, and otherdiagnostic procedures, including culture, serology,histopathology, and/or radiographic findings, to aid in thedifferentiation between histoplasmosis and blastomycosis.CRITICAL RESULT Performed By: #### H IBAG ####[facility] (DEFAULT)[address] [place] [place] [address] Histoplasma/Blastomy antonia Ag Value 5.3 ng/mL Normal [facility] Comment on above: Result Comment: ---- ADDITIONAL INFORMATION This test was developed and its performance characteristicsdetermined by [facility] in a manner consistent with CLIArequirements. This test has not been cleared or approved bythe U.S. Food and Drug Administration.Test Performed by:[place] [id number] Director: Rosendo Bose M.D. Ph.D.; CLIA# [id number] Performed By: #### H IBAG ####[facility] (DEFAULT)[address] [place] [address], [place] [address] HISTOPLASMA ANTIGEN,URINEon 08-29-2023 HISTOPLASM AG, URINE Not detected Normal Not Detected [facility] Comment on above: Result Comment: No H istoplasma antigen detected.False negative results may occur. Repeat testing on anew specimen should be considered if clinically indicated. Performed By: #### Y HISTG ####[facility] (DEFAULT)[address] [place] [address] Histoplasma Ag Value Not detected Normal [facility] Comment on above: Result Comment: ---- ADDITIONAL INFORMATION This test has been modified from the historical records administrator'sinstructions. Its performance characteristics weredetermined by [facility] in a manner consistent withCLIA requirements. This test has not been cleared orapproved by the U.S. Food and Drug Administration.Test Performed by:[facility] [place], [place] [address]Tvl Director: Rosendo Bose M.D. Ph.D.; CLIA# [id number] Performed By: #### Y HISTG ####[facility] (DEFAULT)[address] [place] [address] MAGNESIUMon 08-29-2023 Interpretation and review of laboratory results Normal [facility] Magnesium [Mass/Vol] 1.7 mg/dL 1.6 - 2 .6 mg/dL [facility] Magnesium [Mass/Vol] 1.7 mg/dL Normal 1.6-2.6 [facility] Comment on above: Performed By: #### H FP, GGTB, MGO, CHM7 ####[facility] (DEFAULT)[address] [place] [address] No Panel Informationon 08-29 Interpretation and review of laboratory results Abnormal [facility] PT,INR,PTTon 08-29-2023 aPTT Coag (PPP) [Time] 29.3 s [facility] INR Coag (Bld) [Relative time] 1.1 {INR} 0.9 - 1.1 [facility] Interpretation and review of laboratory results Normal [facility] PT Coag (PPP) [Time] 13.8 s [facility] aPTT Coag (Bld) [Time] 29.3 s Normal 24.0-34.3 [facility] Comment on above: Performed By: #### P TPTT ####[facility] (DEFAULT)[address] [place] [address] INR Coag (PPP) [Relative time] 1.1 {INR} Normal 0.9-1.1 [facility] Comment on above: Performed By: #### P TPTT ####[facility] (DEFAULT)[address] [place] [address] PT Coag (PPP) [Time] 13.8 s Normal 11.9-14.2 [facility] Comment on above: Performed By: #### P TPTT ####[facility] (DEFAULT)[address] [place] [address] Portable XR Chest Viewson RADIOLOGY RADIOLOGY [facility] Portable XR Chest ViewsOrder ed By: Gerald Baer on 08-29-2023 [facility] Work Phone: TACROLIMUS LEVEL, TROUGH (AZ E DRUG LEVEL)on 08-29-2023 Interpretation and review of laboratory results Normal [facility] Tacrolimus (Bld) [Mass/Vol] 8.9 ng/mL [facility] Tacrolimus, Trough 8.9 ng/mL Normal Bone Susana ow Transplant: 4.0-12.0, Therapeutic: 5.0-15.0 [facility] Comment on above: Order Comment: Pleas e draw at specified interval PRIOR to dose. Do not hold dose to wait for level. Specimens batched twice per day, (M-F) and once per day weekendsMethod performed is a chemiluminescent microparticle immunoasssay on the [employer] i2000.The range is based on experience at [facility] and users should be aware that target concentrations vary widely depending on concomitant therapy, time post-transplant, and desired degree of immunosuppression. Performed By: #### T ACRO ####[facility] (DEFAULT)[address] [place] [address] Tacrolimus, Trough 8.7 ng/mL Normal [facility] Transplant: 4.0-12.0, Therapeutic: 5.0-15.0 [facility] Comment on above: Order Comment: Pleas e draw at specified interval PRIOR to dose. Do not hold dose to wait for level. Specimens batched twice per day, (M-F) and once per day weekendsMethod performed is a chemiluminescent microparticle immunoasssay on the [employer] i2000.The range is based on experience at [facility] and users should be aware that target concentrations vary widely depending on concomitant therapy, time post-transplant, and desired degree of immunosuppression. Performed By: #### T ACRO ####[facility] (DEFAULT)[address] [place] [address] TACROLIMUS LEVEL, TROUGH (AZ E DRUG LEVEL)Ordered By: Roxanne Louie on 08-29-2023 Interpretation and review of laboratory results Normal [facility] Tacrolimus (Bld) [Mass/Vol] 8.7 ng/mL [facility] URINALYSIS REFLEX TO CULTURE PERFORMABLEOrdered By: Shaji Kelly on 08-29-2023 Appearance (U) Clear Clear [facility] Bacteria LM Ql (Urine sed) ABSENT ABSENT [facility] Calcium Oxalate Crystals PRESENT [facility] Color (U) Yellow Yellow [facility] Epithelial cells.squamous LM Ql (Urine sed) 0-2/hpf 0-2/hpf, 3-5/hpf = 1+ [facility] Glucose Test strip (U) [Mass/Vol] Negative Negative [facility] Interpretation and review of laboratory results Abnormal [facility] Ketones (U) [Mass/Vol] Negative Negative [facility] [facility] Leukocyte esterase Test strip Ql (U) Negative Negative [facility] Nitrite Ql (U) Negative Negative [facility] pH (U) 6.0 [pH] 5.0 - 7.0 [facility] Protein (U) [Mass/Vol] Negative Negative [facility] RBC (U) [#/Vol] Trace Abnormal Negative [facility] RBC LM.HPF (Urine sed) [#/Area] 3-5 Abnormal [facility] Specific gravity (U) [Rel density] 1.015 1.001 - 1.035 [facility] Urobilinogen (U) [Mass/Vol] 1.0 E.U./dL 0.2 E.U/dL, 1.0 E.U/[facility] W[facility] LM.HPF (Urine sed) [#/Area] 0 - 5 [facility] URINALYSIS REFLEX TO CULTURE PERFORMABLEon 08-29-2023 Appearance (U) Clear Normal Clear [facility] Comment on above: Order Comment: For i ndwelling catheters, specimen collection is acceptable on catheter day 1 and 2 only. ? Performed By: #### U [id number] ####[facility] (DEFAULT)[address] [facility] [place] [address] Bacteria ABSENT Normal ABSENT [facility] Comment on above: Order Comment: For i ndwelling catheters, specimen collection is acceptable on catheter day 1 and 2 only. ? Performed By: #### U [id number] ####[facility] (DEFAULT)[address] [facility] [place] [address] Blood Urine Trace Abnormal Negative [facility] Comment on above: Order Comment: For i ndwelling catheters, specimen collection is acceptable on catheter day 1 and 2 only. ? Performed By: #### U [id number] ####[facility] (DEFAULT)[address] [facility] [place] [address] Calcium Oxalate Crystals PRESENT Normal [facility] Comment on above: Order Comment: For i ndwelling catheters, specimen collection is acceptable on catheter day 1 and 2 only. ? Performed By: #### U [id number] ####[facility] (DEFAULT)[address] [facility] [place] [address] Color (U) Yellow Normal Yellow [facility] Comment on above: Order Comment: For i ndwelling catheters, specimen collection is acceptable on catheter day 1 and 2 only. ? Performed By: #### U [id number] ####[facility] (DEFAULT)[address] [facility] [place] [address] Glucose Ql (U) Negative Normal Negative [facility] Comment on above: Order Comment: For i ndwelling catheters, specimen collection is acceptable on catheter day 1 and 2 only. ? Performed By: #### U [id number] ####[facility] (DEFAULT)[address] [place] [address] Ketones Ql (U) Negative Normal Negative [facility] Comment on above: Order Comment: For i ndwelling catheters, specimen collection is acceptable on catheter day 1 and 2 only. ? Performed By: #### U [id number] ####[facility] (DEFAULT)[address] [facility] [place] [address] Leukocyte esterase Test strip Ql (U) Negative Normal Negative [facility] Comment on above: Order Comment: For i ndwelling catheters, specimen collection is acceptable on catheter day 1 and 2 only. ? Performed By: #### U [id number] ####[facility] (DEFAULT)[address] [place], [place] [address], [place] [address] Nitrites Urine Negative Normal Negative [facility] Comment on above: Order Comment: For i ndwelling catheters, specimen collection is acceptable on catheter day 1 and 2 only. ? Performed By: #### U [id number] ####[facility] (DEFAULT)[address] [place] [address], [place] [address] pH (U) 6.0 [pH] Normal 5.0-7.0 [facility] Comment on above: Order Comment: For i ndwelling catheters, specimen collection is acceptable on catheter day 1 and 2 only. ? Performed By: #### U [id number] ####[facility] (DEFAULT)[address] [facility] [place] [address] Protein Urine Negative Normal Negative [facility] Comment on above: Order Comment: For i ndwelling catheters, specimen collection is acceptable on catheter day 1 and 2 only. ? Performed By: #### U [id number] ####[facility] (DEFAULT)[address] [place], [place] [address], [place] [address] RBC Urine 3-5 Abnormal 0-2 [facility] Comment on above: Order Comment: For i ndwelling catheters, specimen collection is acceptable on catheter day 1 and 2 only. ? Performed By: #### U [id number] ####[facility] (DEFAULT)[address] [place] [address], [place] [address] Specific [place] Urine 1.015 Normal 1.001-1.035 [facility] Comment on above: Order Comment: For i ndwelling catheters, specimen collection is acceptable on catheter day 1 and 2 only. ? Performed By: #### U [id number] ####[facility] (DEFAULT)[address] [place] [address] Squamous/Epithelial Cells 0-2/hpf Normal 0-2/hpf, 3-5/hpf = 1+ [facility] Comment on above: Order Comment: For i ndwelling catheters, specimen collection is acceptable on catheter day 1 and 2 only. ? Performed By: #### U [id number] ####[facility] (DEFAULT)[address] [place] [address] Urobilinogen Urine 1.0 E.U./dL Normal 0.2 E.U/d L, 1.0 E.U/dL [facility] Comment on above: Order Comment: For i ndwelling catheters, specimen collection is acceptable on catheter day 1 and 2 only. ? Performed By: #### U [id number] ####[facility] (DEFAULT)[address] [place] [address] WBC Urine 0 - 5 Normal 0 - 5 [facility] Comment on above: Order Comment: For i ndwelling catheters, specimen collection is acceptable on catheter day 1 and 2 only. ? Performed By: #### U [id number] ####[facility] (DEFAULT)[address] [place] [address] URINE CULTUREon 08-29-2023 Bacteria identified Cx Nom (U) No Growth Normal [facility] Comment on above: Order Comment: For i ndwelling catheters, specimen collection is acceptable on catheter day 1 and 2 only. Sung top vacutainer. Urine must be to the fill line to process (4mls). If minimum volume, send urine in a yellow top vacutainer tube. Performed By: #### U R ####[facility] (DEFAULT)[address] [place] [address] US RENAL TRANSPLANT SCANon 0 08-29-2023 US RENAL TRANSPLANT SCAN Normal [facility] US for transplanted kidney l imitedon 08-29-2023 RADIOLOGY RADIOLOGY [facility] Radiology Study observation (narrative) [facility] US for transplanted kidney l imitedOrdered By: Romana Matias on 08-29-2023 [facility] Work Phone: XR CHEST PORTABLEon 08-29-20 XR CHEST PORTABLE Normal [facility] BLOOD CULTUREon 08-28-2023 Bacteria identified Cx Nom (Unsp spec) NO GROWTH DAY 5 OF 5 Normal [facility] Comment on above: Order Comment: 2 Bot tles (1 Set - consists of 1 Aerobic bottle and 1 Anaerobic bottle) -1st Peripheral DrawFor syringe method draw:If able to obtain adequate sample (20 ml) inoculate anaerobic bottle firstIf inadequate sample obtained (less than 20 ml) inoculate aerobic bottle firstFor vacutainer method draw: Fill aerobic bottle first, then anaerobic Performed By: #### B LDCULT ####[facility] (DEFAULT)[address] [place] [address] Bacteria identified Cx Nom (Unsp spec) NO GROWTH DAY 5 OF 5 Normal [facility] Comment on above: Order Comment: 2 Bot tles (1 Set - consists of 1 Aerobic bottle and 1 Anaerobic bottle) -1st Peripheral DrawFor syringe method draw:If able to obtain adequate sample (20 ml) inoculate anaerobic bottle firstIf inadequate sample obtained (less than 20 ml) inoculate aerobic bottle firstFor vacutainer method draw: Fill aerobic bottle first, then anaerobic Performed By: #### B LDCULT ####[facility] (DEFAULT)[address] [facility] [place] [address] DARYL AURIS SCREEN BY PCRo n 08-28-2023 Daryl auris Screen by PCR Not detected Normal Not Detected [facility] Comment on above: Order Comment: This test was performed using a real-time PCR assay. This test was developed, and its performance characteristics determined by [facility]. It has not been cleared or approved by the FDA. The laboratory is regulated under CLIA as qualified to perform high-complexity testing. This test is used for clinical purposes. It should not be regarded as investigational or for research. Performed By: #### C LEXX MCCORMACK SCREEN BY PCR ####[facility] (DEFAULT)[address] [place] [address] CBC AND ELECTRONIC DIFFon Basophils (Bld) [#/Vol] K/uL 0.00 - 0.09 K/uL [facility] Basophils/100 WBC (Bld) 0.6 % [facility] Differential cell count method Nom (Bld) Electronic Differential [facility] Eosinophils (Bld) [#/Vol] 0.10 10*3/uL 0.00 - 0.48 K/uL [facility] Eosinophils/100 WBC (Bld) 2.1 % [facility] Erythrocyte distribution width (RBC) [Ratio] 13.4 % 10.9 - 14.3 % [facility] Hematocrit (Bld) [Volume fraction] 37.9 % Low 39.6 - 48.8 % [facility] Hemoglobin (Bld) [Mass/Vol] 12.4 g/dL Low 13.4 - 16.8 g/dL [facility] Immature granulocytes (Bld) [#/Vol] K/uL NINF - 0.07 K/uL [facility] Immature granulocytes/100 WBC (Bld) 0.6 % [facility] Interpretation and review of laboratory results Abnormal [facility] Lymphocytes (Bld) [#/Vol] 1.76 10*3/uL 0.83 - 3.57 K/uL [facility] Lymphocytes/100 WBC (Bld) 37.1 % [facility] MCH (RBC) [Entitic mass] 27.8 pg 26.1 - 33.3 pg [facility] MCHC (RBC) [Mass/Vol] 32.7 g/dL 31.9 - 36.5 g/dL [facility] MCV (RBC) [Entitic vol] 85.0 fL 79.0 - 94.5 fL [facility] Monocytes (Bld) [#/Vol] 0.66 10*3/uL 0.24 - 0.93 K/uL [facility] Monocytes/100 WBC (Bld) 13.9 % [facility] Neutrophils (Bld) [#/Vol] 2.16 10*3/uL 1.57 - 6.19 K/uL [facility] Nucleated RBC/100 WBC (Bld) [Ratio] 0.0 % NINF [facility] Platelet mean volume (Bld) [Entitic vol] 9.3 fL 8.7 - 12.3 fL [facility] Platelets (Bld) [#/Vol] 262 10*3/uL 146 - 337 K/uL [facility] RBC (Bld) [#/Vol] 4.46 10*6/uL [facility] Segmented neutrophils/100 WBC (Bld) 45.7 % [facility] WBC (Bld) [#/Vol] 4.74 10*3/uL 3.73 - 10. 10 K/uL [facility] Abs Baso Auto < Normal 0.00-0.09 [facility] Comment on above: Performed By: #### L [id number] ####[facility] (DEFAULT)[address] [place] [place] [address] Basophils/100 WBC (Bld) 0.6 % Normal [facility] Comment on above: Performed By: #### L [id number] ####[facility] (DEFAULT)[address] [facility] [place] [address] DIFF STATUS Electronic Differential Normal [facility] Comment on above: Performed By: #### L [id number] ####[facility] (DEFAULT)[address] [place] [place] [address] Eosinophils (Bld) [#/Vol] 0.10 10*3/uL Normal 0.00-0.48 [facility] Comment on above: Performed By: #### L [id number] ####[facility] (DEFAULT)[address] [facility] [place] [address] Eosinophils/100 WBC (Bld) 2.1 % Normal [facility] Comment on above: Performed By: #### L [id number] ####[facility] (DEFAULT)[address] [place] [address] Hematocrit (Bld) [Volume fraction] 37.9 % Low 39.6-48.8 [facility] Comment on above: Performed By: #### L [id number] ####[facility] (DEFAULT)[address] [facility] [place] [address] Hemoglobin (Bld) [Mass/Vol] 12.4 g/dL Low 13.4-16.8 [facility] Comment on above: Performed By: #### L [id number] ####[facility] (DEFAULT)[address] [facility] [place] [address] Immature Grans % 0.6 % Normal [facility] Comment on above: Performed By: #### L [id number] ####[facility] (DEFAULT)[address] [place] [place] [address] Immature Grans Absolute < Normal <=0.07 [facility] Comment on above: Performed By: #### L [id number] ####[facility] (DEFAULT)[address] [facility] [place] [address] Lymphocytes (Bld) [#/Vol] 1.76 10*3/uL Normal 0.83-3.57 [facility] Comment on above: Performed By: #### L [id number] ####[facility] (DEFAULT)[address] [facility] [place] [address] Lymphocytes/100 WBC (Bld) 37.1 % Normal [facility] Comment on above: Performed By: #### L [id number] ####[facility] (DEFAULT)[address] [facility] [place] [address] MCV (RBC) [Entitic vol] 85.0 fL Normal 79.0-94.5 [facility] Comment on above: Performed By: #### L [id number] ####[facility] (DEFAULT)[address] [facility] [place] [address] Mean Cell Hgb 27.8 pg Normal 26.1-33.3 [facility] Comment on above: Performed By: #### L [id number] ####[facility] (DEFAULT)[address] [facility] [place] [address] Mean Cell Hgb Conc 32.7 g/dL Normal 31.9-36.5 [facility] Comment on above: Performed By: #### L [id number] ####[facility] (DEFAULT)[address] [place] [address] Monocytes (Bld) [#/Vol] 0.66 10*3/uL Normal 0.24-0.93 [facility] Comment on above: Performed By: #### L [id number] ####[facility] (DEFAULT)[address] [place] [address] Monocytes/100 WBC (Bld) 13.9 % Normal [facility] Comment on above: Performed By: #### L [id number] ####[facility] (DEFAULT)[address] [facility] [place] [address] Nucleated RBC 0.0 /100 WBC Normal <=0.2 [facility] Comment on above: Performed By: #### L [id number] ####[facility] (DEFAULT)[address] [place] [address] Platelet mean volume (Bld) [Entitic vol] 9.3 fL Normal 8.7-12.3 [facility] Comment on above: Performed By: #### L [id number] ####[facility] (DEFAULT)[address] [facility] [place] [address] Platelets (Bld) [#/Vol] 262 10*3/uL Normal 146-337 [facility] Comment on above: Performed By: #### L [id number] ####[facility] (DEFAULT)[address] [place] [address] RBC (Bld) [#/Vol] 4.46 10*6/uL Normal 4.38-5.83 [facility] Comment on above: Performed By: #### L [id number] ####[facility] (DEFAULT)[address] [place] [address] RBC Distribution 13.4 % Normal 10.9-14.3 [facility] Comment on above: Performed By: #### L [id number] ####[facility] (DEFAULT)[address] [place] [address] Segs + Bands Auto 45.7 % Normal [facility] Comment on above: Performed By: #### L [id number] ####[facility] (DEFAULT)[address] [place] [address] Segs + Bands,Absolute Auto 2.16 K/uL Normal 1.57-6.19 [facility] Comment on above: Performed By: #### L [id number] ####[facility] (DEFAULT)[address] [place] [address] WBC (Bld) [#/Vol] 4.74 10*3/uL Normal 3.73-10.10 [facility] Comment on above: Performed By: #### L [id number] ####[facility] (DEFAULT)[address] [place] [address] CHEM 6 (LYTES, BUN CREA)on 0 08-28-2023 Anion gap [Moles/Vol] 13 mmol/L 7 - 17 mmol/L [facility] Chloride [Moles/Vol] 103 mmol/L 98 - 10 8 mmol/L [facility] CO2 [Moles/Vol] 22 mmol/L 21 - 31 mmol/L [facility] Creatinine [Mass/Vol] 1.62 mg/dL High 0.70 - 1.30 mg/dL [facility] eGFR, CKD-EPI, Male 51 Low - PINF [facility] Interpretation and review of laboratory results Abnormal [facility] Potassium [Moles/Vol] 4.3 mmol/L 3.5 - 5.0 mmol/L [facility] Sodium [Moles/Vol] 134 mmol/L Low 135 - 145 mmol/L [facility] Urea nitrogen [Mass/Vol] 22 mg/dL 7 - 25 mg/dL [facility] Urea nitrogen/Creatinine [Mass ratio] 14 mg/mg [facility] Anion gap [Moles/Vol] 13 mmol/L Normal 7-17 [facility] Comment on above: Performed By: #### C HM6 ####[facility] (DEFAULT)[address] [place] [address] Chloride [Moles/Vol] 103 mmol/L Normal 98-108 [facility] Comment on above: Performed By: #### C HM6 ####[facility] (DEFAULT)[address] [place] [address] CO2 [Moles/Vol] 22 mmol/L Normal 21-31 [facility] Comment on above: Performed By: #### C HM6 ####[facility] (DEFAULT)[address] [place] [address] Creatinine [Mass/Vol] 1.62 mg/dL High 0.70-1.30 [facility] Comment on above: Performed By: #### C HM6 ####[facility] (DEFAULT)[address] [place] [address] GFR/1.73 sq M.predicted among non-blacks MDRD (S/P/Bld) [Vol rate/Area] 51 mL/min/{1.73_m2} Low >=60 [facility] Comment on above: Result Comment: Repo rted eGFR is based on the CKD-EPI 2020 equation using creatinine, age, and sex. Performed By: #### C HM6 ####[facility] (DEFAULT)[address] [place] [address] Potassium [Moles/Vol] 4.3 mmol/L Normal 3.5-5.0 [facility] Comment on above: Performed By: #### C HM6 ####[facility] (DEFAULT)[address] [place] [address] Sodium [Moles/Vol] 134 mmol/L Low 135-145 [facility] Comment on above: Performed By: #### C HM6 ####[facility] (DEFAULT)[address] [facility] [place] [address] Urea nitrogen [Mass/Vol] 22 mg/dL Normal 7-25 [facility] Comment on above: Performed By: #### C HM6 ####[facility] (DEFAULT)[address] [facility] [place] [address] Urea nitrogen/Creatinine [Mass ratio] 14 mg/mg Normal [facility] Comment on above: Performed By: #### C HM6 ####[facility] (DEFAULT)[address] [facility] [place] [address] IMMUNOCOMPROMISED RESPIRATOR Y PANELon 08-28-2023 Adenovirus - Pcr Not detected Normal Not Detected [facility] Comment on above: Order Comment: Viral [...] assay. Performed By: #### I CRESP ####[facility] (DEFAULT)[address] [facility] [place] [address] Bordetella Parapertussis Not detected Normal Not Detected [facility] Comment on above: Order Comment: Viral [...] assay. Performed By: #### I CRESP ####[facility] (DEFAULT)[address] [place] [address], [place] [address] Bordetella Pertussis Not detected Normal Not Detected [facility] Comment on above: Order Comment: Viral [...] acid assay. Performed By: #### I CRESP ####[facility] (DEFAULT)[address] [place] [address] Chlamydia Pneumoniae Not detected Normal Not Detected [facility] Comment on above: Order Comment: Viral [...] assay. Performed By: #### I CRESP ####[facility] (DEFAULT)[address] [place] [address], [place] [address] Coronavirus 229E Not detected Normal Not Detected [facility] Comment on above: Order Comment: Viral [...] assay. Performed By: #### I CRESP ####[facility] (DEFAULT)[address] [place] [address], [place] [address] Coronavirus Hku1 Not detected Normal Not Detected [facility] Comment on above: Order Comment: Viral [...] acid assay. Performed By: #### I CRESP ####[facility] (DEFAULT)[address] [place] [address], [place] [address] Coronavirus Nl63 Not detected Normal Not Detected [facility] Comment on above: Order Comment: Viral [...] assay. Performed By: #### I CRESP ####[facility] (DEFAULT)[address] [place] [place] [address] Coronavirus Oc43 Not detected Normal Not Detected [facility] Comment on above: Order Comment: Viral [...] assay. Performed By: #### I CRESP ####[facility] (DEFAULT)[address] [address] Influenza A - Pcr Not detected Normal Not Detected [facility] Comment on above: Order Comment: Viral transport [...] acid assay. Performed By: #### I CRESP ####[facility] (DEFAULT)[address] [address] Influenza B - Pcr Not detected Normal Not Detected [facility] Comment on above: Order Comment: Viral transport [...] assay. Performed By: #### I CRESP ####[facility] (DEFAULT)[address] [place] [address], [place] [address] Metapneumovirus - Pcr Not detected Normal Not Detected [facility] Comment on above: Order Comment: Viral [...] assay. Performed By: #### I CRESP ####[facility] (DEFAULT)[address] [place] [address] Mycoplasma Pneumoniae Not detected Normal Not Detected [facility] Comment on above: Order Comment: Viral [...] assay. Performed By: #### I CRESP ####[facility] (DEFAULT)[address] [place] [address] Parainfluenza 1 - Pcr Not detected Normal Not Detected [facility] Comment on above: Order Comment: Viral [...] assay. Performed By: #### I CRESP ####[facility] (DEFAULT)[address] [place] [address], [place] [address] Parainfluenza 2 - Pcr Not detected Normal Not Detected [facility] Comment on above: Order Comment: Viral [...] acid assay. Performed By: #### I CRESP ####[facility] (DEFAULT)[address] [place] [address], [place] [address] Parainfluenza 3 - Pcr Not detected Normal Not Detected [facility] Comment on above: Order Comment: Viral [...] acid assay. Performed By: #### I CRESP ####[facility] (DEFAULT)[address] [place] [place] [address] Parainfluenza 4 - Pcr Not detected Normal Not Detected [facility] Comment on above: Order Comment: Viral [...] acid assay. Performed By: #### I CRESP ####[facility] (DEFAULT)[address] [facility] [place] [address] Rhinovirus/Enterovir us - PCR Not detected Normal Not Detected [facility] Comment on above: Order Comment: Viral [...] acid assay. Performed By: #### I CRESP ####[facility] (DEFAULT)[address] [place] [address] Rsv - Pcr Not detected Normal Not Detected [facility] Comment on above: Order Comment: Viral [...] acid assay. Performed By: #### I CRESP ####[facility] (DEFAULT)[address] [place] [address] SARS-CoV-2 (COVID-19) RNA ESTELITA+probe Ql (Unsp spec) Not detected Normal NOT DETECTED [facility] Comment on above: Order Comment: Viral [...] acid assay. Performed By: #### I CRESP ####[facility] (DEFAULT)[address] [place] [id number] Portable XR Chest Viewson Radiology Study observation (narrative) [facility] Respiratory virus DNA+RNA NA A+probe Nom (Unsp spec)Ordered By: Dayami Harris on 08-28-2023 Adenovirus DNA ESTELITA+probe Nom (Unsp spec) Not detected Not Detected [facility] B. parapertussis DNA ESTELITA+probe Ql (Unsp spec) Not detected Not Detected [facility] B. pertussis DNA ESTELITA+probe Ql (Unsp spec) Not detected Not Detected [facility] C. pneumoniae DNA ESTELITA+probe Ql (Unsp spec) Not detected Not Detected [facility] FLUAV RNA ESTELITA+probe Ql (Unsp spec) Not detected Not Detected [facility] FLUBV RNA ESTELITA+probe Ql (Unsp spec) Not detected Not Detected [facility] HCoV 229E RNA ESTELITA+non-probe Ql (Nph) Not detected Not Detected [facility] HCoV HKU1 RNA ESTELITA+non-probe Ql (Nph) Not detected Not Detected [facility] HCoV NL63 RNA ESTELITA+non-probe Ql (Nph) Not detected Not Detected [facility] HCoV OC43 RNA ESTELITA+non-probe Ql (Nph) Not detected Not Detected [facility] hMPV A RNA ESTELITA+probe Ql (Unsp spec) Not detected Not Detected [facility] Interpretation and review of laboratory results Normal [facility] M. pneumoniae DNA ESTELITA+probe Ql (Unsp spec) Not detected Not Detected [facility] Parainfluenza virus 1 RNA ESTELITA+probe Ql (Unsp spec) Not detected Not Detected [facility] Parainfluenza virus 2 RNA ESTELITA+probe Ql (Unsp spec) Not detected Not Detected [facility] Parainfluenza virus 3 RNA ESTELITA+probe Ql (Unsp spec) Not detected Not Detected [facility] Parainfluenza virus 4 RNA ESTELITA+probe Ql (Unsp spec) Not detected Not Detected [facility] Rhinovirus+Enterovir us RNA ESTELITA+probe Ql (Unsp spec) Not detected Not Detected [facility] RSV RNA ESTELITA+probe Ql (Unsp spec) Not detected Not Detected [facility] SARS-CoV-2 (COVID-19) RNA ESTELITA+probe Ql (Unsp spec) Not detected NOT DETECTED [facility] ALBUMINon 04-28-2023 Albumin [Mass/Vol] 4.0 g/dL Normal 3.4-5.0 [facility] Comment on above: Performed By: #### C MP #### [facility] [address] [place] [address] Dr. Dwight Waters ALKALINE PHOSPHAon ALP [Catalytic activity/Vol] 106 U/L Normal 46-116 [facility] Comment on above: Performed By: #### F [id number] #### [facility] [address] [place] [address] Dr. Dwight Waters BILIRUBIN CONJUGATED (DIRECT )on 04-28-2023 BILI, CONJUGATED 0.3 mg/dL Critically high 0.0-0.2 [facility] Comment on above: Performed By: #### C MP #### [facility] [address] [place] [address] Dr. Dwight Waters BILIRUBIN TOTALon 04-28-2023 Bilirubin [Mass/Vol] 1.4 mg/dL Critically high 0.2-1.0 [facility] Comment on above: Performed By: #### C MP #### [facility] [address] [place] [address] Dr. Dwight Waters BUNon 04-28-2023 Urea nitrogen [Mass/Vol] 12.0 mg/dL Normal 7.0-18.0 [facility] Comment on above: Performed By: #### U RTPCR #### [facility] [address] [place] [address] Dr. Dwight Waters CALCIUMon 04-28-2023 Calcium [Mass/Vol] 9.3 mg/dL Normal 8.5-10.1 [facility] Comment on above: Performed By: #### U RTPCR #### [facility] [address] [place] [address] Dr. Dwight Waters CBC AUTO DIFFon 04-28-2023 BASO # 0.1 103/ul Normal 0.0-0.1 [facility] Comment on above: Performed By: #### C BC #### [facility] [address] [place] [address] Dr. Dwight Waters Basophils/100 WBC (Bld) 0.9 % Normal 0.2-2.0 [facility] Comment on above: Performed By: #### C BC #### [facility] [address] [place] [address] Dr. Dwight Waters EO # 0.2 103/ul Normal 0.0-0.7 [facility] Comment on above: Performed By: #### C BC #### [facility] [address] [place] [address] Dr. Dwight Waters Eosinophils/100 WBC (Bld) 3.8 % Normal 0.9-7.0 [facility] Comment on above: Performed By: #### C BC #### [facility] [address] [place] [address] Dr. Dwight Waters Erythrocyte distribution width (RBC) [Ratio] 12.5 % Normal 11.0-15.0 [facility] Comment on above: Performed By: #### C BC #### [facility] [address] [place] [address] Dr. Dwight Waters Hematocrit (Bld) [Volume fraction] 49.8 % Normal 42.0-54.0 [facility] Comment on above: Performed By: #### C BC #### [facility] [address] [place] [address] Dr. Dwight Waters Hemoglobin (Bld) [Mass/Vol] 16.4 g/dL Normal 14.0-18.0 [facility] Comment on above: Performed By: #### C BC #### [facility] [address] [place] [address] Dr. Dwight Waters IG # 0.01 10e3/ul Normal 0.00-0.03 [facility] Comment on above: Performed By: #### C BC #### [facility] [address] [place] [address] Dr. Dwight Waters IG % 0.2 % Normal 0.0-0.5 [facility] Comment on above: Performed By: #### C BC #### [facility] [address] [place] [address] Dr. Dwight Waters LYMPH # 2.1 103/ul Normal 1.2-3.8 [facility] Comment on above: Performed By: #### C BC #### [facility] [address] [place] [address] Dr. Dwight Waters Lymphocytes/100 WBC (Bld) 39.1 % Normal 20.5-60.0 [facility] Comment on above: Performed By: #### C BC #### [facility] [address] [place] [address] Dr. Dwight Waters MANUAL DIFF REQ NO Normal [facility] Comment on above: Performed By: #### C BC #### [facility] [address] [place] [address] Dr. Dwight Waters MCH (RBC) [Entitic mass] 28.6 pg Normal 25.9-34.0 [facility] Comment on above: Performed By: #### C BC #### [facility] [address] [place] [address] Dr. Dwight Waters MCHC (RBC) [Mass/Vol] 32.9 g/dL Normal 29.9-35.2 [facility] Comment on above: Performed By: #### C BC #### [facility] [address] [place] [address] Dr. Dwight Waters MCV (RBC) [Entitic vol] 86.9 fL Normal 80.0-94.0 [facility] Comment on above: Performed By: #### C BC #### [facility] [address] [place] [address] Dr. Dwight Waters MONO # 0.6 103/ul Normal 0.3-0.8 [facility] Comment on above: Performed By: #### C BC #### [facility] [address] [place] [address] Dr. Dwight Waters Monocytes/100 WBC (Bld) 10.6 % Normal 1.7-12.0 [facility] Comment on above: Performed By: #### C BC #### [facility] [address] [place] [address] Dr. Dwight Waters NEUT # 2.5 103/ul Normal 1.4-6.5 [facility] Comment on above: Performed By: #### C BC #### [facility] [address] [place] [address] Dr. Dwight Waters Neutrophils/100 WBC (Bld) 45.4 % Normal 43.0-75.0 [facility] Comment on above: Performed By: #### C BC #### [facility] [address] [place] [address] Dr. Dwight Waters Platelet mean volume (Bld) [Entitic vol] 9.3 fL Critically low 9.5-13.5 [facility] Comment on above: Performed By: #### C BC #### [facility] [address] [place] [address] Dr. Dwight Waters PLT 248 103/ul Normal 150-450 [facility] Comment on above: Performed By: #### C BC #### [facility] [address] [place] [address] Dr. Dwight Waters RBC 5.73 106/ul Normal 4.70-6.10 [facility] Comment on above: Performed By: #### C BC #### [facility] [address] [place] [address] Dr. Dwight Waters WBC 5.5 103/ul Normal 4.0-11.0 [facility] Comment on above: Performed By: #### C BC #### [facility] [address] [place] [address] Dr. Dwight Waters CHLORIDEon 04-28-2023 Chloride [Moles/Vol] 107 mmol/L Normal 98-107 [facility] Comment on above: Performed By: #### U RTPCR #### [facility] [address] [place] [address] Dr. Dwight Waters CO2on 04-28-2023 CO2 [Moles/Vol] 28.9 mmol/L Normal 21.0-32.0 [facility] Comment on above: Performed By: #### U RTPCR #### [facility] [address] [place] [address] Dr. Dwight Waters CREATININEon 04-28-2023 Creatinine [Mass/Vol] 1.17 mg/dL Normal 0.70-1.30 [facility] Comment on above: Performed By: #### U RTPCR #### [facility] [address] [place] [address] Dr. Dwight Waters EGFR-AF EMIRATI >60 Normal >=60 [facility] Comment on above: Performed By: #### U RTPCR #### [facility] [address] [place] [address] Dr. Dwight Waters EGFR-NON AF EMIRATI >60 Normal >=60 [facility] Comment on above: Performed By: #### U RTPCR #### [facility] [address] [place] [address] Dr. Dwight Waters GGTon 04-28-2023 Gamma glutamyl transferase [Catalytic activity/Vol] 27 U/L Normal 15-85 [facility] Comment on above: Performed By: #### U RTPCR #### [facility] [address] [place] [address] Dr. Dwight Waters GLUCOSE BLOODon 04-28-2023 Glucose [Mass/Vol] 110 mg/dL Critically high 74-[address] [facility] Comment on above: Performed By: #### U RTPCR #### [facility] [address] [place] [address] Dr. Dwight Waters MAGNESIUMon 04-28-2023 Magnesium [Mass/Vol] 1.7 mg/dL Critically low 1.8-2.4 [facility] Comment on above: Performed By: #### U RTPCR #### [facility] [address] [place] [address] Dr. Dwight Waters NAon 04-28-2023 Sodium [Moles/Vol] 144 mmol/L Normal 136-145 [facility] Comment on above: Performed By: #### U RTPCR #### [facility] [address] [place] [address] Dr. Dwight Waters PHOSPHORUSon 04-28-2023 Phosphate [Mass/Vol] 3.2 mg/dL Normal 2.6-4.7 [facility] Comment on above: Performed By: #### U RTPCR #### [facility] [address] [place] [address] Dr. Dwight Waters POTASSIUMon 04-28-2023 Potassium [Moles/Vol] 4.0 mmol/L Normal 3.5-5.1 [facility] Comment on above: Performed By: #### U RTPCR #### [facility] [address] [place] [address] Dr. Dwight Waters SGOTon 04-28-2023 AST [Catalytic activity/Vol] 25 U/L Normal 15-37 [facility] Comment on above: Performed By: #### C MP #### [facility] [address] [place] [address] Dr. Dwight Waters SGPTon 04-28-2023 ALT [Catalytic activity/Vol] 40 U/L Normal 16-63 [facility] Comment on above: Performed By: #### C MP #### [facility] [address] [place] [address] Dr. Dwight Waters URINE T PROTEIN CREAT RATIOo n 04-28-2023 Protein (U) [Mass/Vol] 10.1 mg/dL Normal <=12.0 [facility] Comment on above: Performed By: #### U RTPCR #### [facility] [address] [place] [address] Dr. Dwight Waters UR PROT CREAT RAT 0.14 Normal [facility] Comment on above: Performed By: #### U RTPCR #### [facility] [address] [place] [address] Dr. Dwight Waters URINE CREAT 74.40 mg/dL Normal 20.00-300.00 [facility] Comment on above: Performed By: #### U RTPCR #### [facility] [address] [place] [address] Dr. Dwight Waters BK VIRUS PCR QUANTon 04-05-2 023 BKV DNA QUANT PCR PLASMA Negative Normal Negative [facility] Comment on above: Result Comment: No B K DNA detected. . The linear range of the assay is 22 - 100,000,000 IU/mL. Performed By: #### B KVIRUS #### [facility] [address] [place] [address] Dr. Dwight Waters Log10 BKV DNA Plasma Normal [facility] Comment on above: Performed By: #### B KVIRUS #### [facility] [address] [place] [address] Dr. Dwight Waters FK506 (TACROLIMUS) WHOLE BLO ODon 03-04-2023 Tacrolimus (FK506), Blood 5.9 ng/mL Normal 2.0-20.0 [facility] Comment on above: Result Comment: Trou gh (immediately following transplant) 15.0 . Trough (steady state, 2 weeks or more after transplant): 3.0 - 8.0 . Performed by LC-MS/MS technology. Performed By: #### C MP #### [facility] [address] [place] [address] Dr. Dwight Waters ALBUMINon 03-02-2023 Albumin [Mass/Vol] 3.9 g/dL Normal 3.4-5.0 [facility] Comment on above: Performed By: #### U RTPCR #### [facility] [address] [place] [address] Dr. Dwight Waters ALKALINE PHOSPHAon ALP [Catalytic activity/Vol] 105 U/L Normal 46-116 [facility] Comment on above: Performed By: #### U RTPCR #### [facility] [address] [place] [address] Dr. Dwight Waters BILIRUBIN CONJUGATED (DIRECT )on 03-02-2023 BILI, CONJUGATED 0.2 mg/dL Normal 0.0-0.2 [facility] Comment on above: Performed By: #### U RTPCR #### [facility] [address] [place] [address] Dr. Dwight Waters BILIRUBIN TOTALon 03-02-2023 Bilirubin [Mass/Vol] 0.9 mg/dL Normal 0.2-1.0 [facility] Comment on above: Performed By: #### U RTPCR #### [facility] [address] [address] [address] Dwight Waters CBC AUTO DIFFon 03-02-2023 BASO # 0.1 103/ul Normal 0.0-0.1 [facility] Comment on above: Performed By: #### C BC #### [facility] [address] [address] [address] Dwight Waters Basophils/100 WBC (Bld) 0.9 % Normal 0.2-2.0 [facility] Comment on above: Performed By: #### C BC #### [facility] [address] [place] [address] Dr. Dwight Waters EO # 0.2 103/ul Normal 0.0-0.7 [facility] Comment on above: Performed By: #### C BC #### [facility] [address] [place] [address] Dr. Dwight Waters Eosinophils/100 WBC (Bld) 3.5 % Normal 0.9-7.0 [facility] Comment on above: Performed By: #### C BC #### [facility] [address] [place] [address] Dr. Dwight Waters Erythrocyte distribution width (RBC) [Ratio] 12.7 % Normal 11.0-15.0 [facility] Comment on above: Performed By: #### C BC #### [facility] [address] [place] [address] Dr. Dwight Waters Hematocrit (Bld) [Volume fraction] 48.2 % Normal 42.0-54.0 [facility] Comment on above: Performed By: #### C BC #### [facility] [address] [place] [address] Dr. Dwight Waters Hemoglobin (Bld) [Mass/Vol] 15.9 g/dL Normal 14.0-18.0 [facility] Comment on above: Performed By: #### C BC #### [facility] [address] [place] [address] Dr. Dwight Waters IG # 0.01 10e3/ul Normal 0.00-0.03 [facility] Comment on above: Performed By: #### C BC #### [facility] [address] [place] [address] Dr. Dwight Waters IG % 0.2 % Normal 0.0-0.5 [facility] Comment on above: Performed By: #### C BC #### [facility] [address] [place] [address] Dr. Dwight Waters LYMPH # 2.1 103/ul Normal 1.2-3.8 [facility] Comment on above: Performed By: #### C BC #### [facility] [address] [place] [address] Dr. Dwight Waters Lymphocytes/100 WBC (Bld) 37.4 % Normal 20.5-60.0 [facility] Comment on above: Performed By: #### C BC #### [facility] [address] [place] [address] Dr. Dwight Waters MANUAL DIFF REQ NO Normal [facility] Comment on above: Performed By: #### C BC #### [facility] [address] [place] [address] Dr. Dwight Waters MCH (RBC) [Entitic mass] 28.3 pg Normal 25.9-34.0 [facility] Comment on above: Performed By: #### C BC #### [facility] [address] [place] [address] Dr. Dwight Waters MCHC (RBC) [Mass/Vol] 33.0 g/dL Normal 29.9-35.2 [facility] Comment on above: Performed By: #### C BC #### [facility] [address] [place] [address] Dr. Dwight Waters MCV (RBC) [Entitic vol] 85.8 fL Normal 80.0-94.0 [facility] Comment on above: Performed By: #### C BC #### [facility] [address] [place] [address] Dr. Dwight Waters MONO # 0.6 103/ul Normal 0.3-0.8 [facility] Comment on above: Performed By: #### C BC #### [facility] [address] [place] [address] Dr. Dwight Waters Monocytes/100 WBC (Bld) 10.2 % Normal 1.7-12.0 [facility] Comment on above: Performed By: #### C BC #### [facility] [address] [place] [address] Dr. Dwight Waters NEUT # 2.7 103/ul Normal 1.4-6.5 [facility] Comment on above: Performed By: #### C BC #### [facility] [address] [place] [address] Dr. Dwight Waters Neutrophils/100 WBC (Bld) 47.8 % Normal 43.0-75.0 [facility] Comment on above: Performed By: #### C BC #### [facility] [address] [place] [address] Dr. Dwight Waters Platelet mean volume (Bld) [Entitic vol] 9.3 fL Critically low 9.5-13.5 [facility] Comment on above: Performed By: #### C BC #### [facility] [address] [place] [address] Dr. Dwight Waetrs PLT 241 103/ul Normal 150-450 [facility] Comment on above: Performed By: #### C BC #### [facility] [address] [place] [address] Dr. Dwight Waters RBC 5.62 106/ul Normal 4.70-6.10 [facility] Comment on above: Performed By: #### C BC #### [facility] [address] [place] [address] Dr. Dwight Waters WBC 5.7 103/ul Normal 4.0-11.0 [facility] Comment on above: Performed By: #### C BC #### [facility] [address] [place] [address] Dr. Dwight Waters GGTon 03-02-2023 Gamma glutamyl transferase [Catalytic activity/Vol] 25 U/L Normal 15-85 [facility] Comment on above: Performed By: #### U RTPCR #### [facility] [address] [place] [address] Dr. Dwight Waters MAGNESIUMon 03-02-2023 Magnesium [Mass/Vol] 1.6 mg/dL Critically low 1.8-2.4 [facility] Comment on above: Performed By: #### U RTPCR #### [facility] [address] [place] [address] Dr. Dwight Waters PHOSPHORUSon 03-02-2023 Phosphate [Mass/Vol] 3.6 mg/dL Normal 2.6-4.7 [facility] Comment on above: Performed By: #### U RTPCR #### [facility] [address] [place] [address] Dr. Dwight Waters PROF CHEM 8 (BAS METB)on Anion gap [Moles/Vol] 9.4 mmol/L Normal [facility] Comment on above: Performed By: #### U RTPCR #### [facility] [address] [place] [address] Dr. Dwight Waters Calcium [Mass/Vol] 9.3 mg/dL Normal 8.5-10.1 [facility] Comment on above: Performed By: #### U RTPCR #### [facility] [address] [place] [address] Dr. Dwight Waters Chloride [Moles/Vol] 108 mmol/L Critically high 98-107 [facility] Comment on above: Performed By: #### U RTPCR #### [facility] [address] [place] [address] Dr. Dwight Waters CO2 [Moles/Vol] 27.2 mmol/L Normal 21.0-32.0 [facility] Comment on above: Performed By: #### U RTPCR #### [facility] [address] [place] [address] Dr. Dwight Waters Creatinine [Mass/Vol] 1.12 mg/dL Normal 0.70-1.30 [facility] Comment on above: Performed By: #### U RTPCR #### [facility] [address] [place] [address] Dr. Dwight Waters EGFR-AF EMIRATI >60 Normal >=60 [facility] Comment on above: Performed By: #### U RTPCR #### [facility] [address] [address] [address] Dwight Waters EGFR-NON AF EMIRATI >60 Normal >=60 [facility] Comment on above: Performed By: #### U RTPCR #### [facility] [address] [address] [address] Dwight Waters Glucose [Mass/Vol] 113 mg/dL Critically high 74-[address] [facility] Comment on above: Performed By: #### U RTPCR #### [facility] [address] [address] [address] Dwight Waters Potassium [Moles/Vol] 3.6 mmol/L Normal 3.5-5.1 [facility] Comment on above: Performed By: #### U RTPCR #### [facility] [address] [address] [address] Dwight Waters Sodium [Moles/Vol] 141 mmol/L Normal 136-145 [facility] Comment on above: Performed By: #### U RTPCR #### [facility] [address] [address] [address] Dwight Waters Urea nitrogen [Mass/Vol] 14.0 mg/dL Normal 7.0-18.0 [facility] Comment on above: Performed By: #### U RTPCR #### [facility] [address] [address] [address] Dwight Waters Urea nitrogen/Creatinine [Mass ratio] 12.5 mg/mg Normal [facility] Comment on above: Performed By: #### U RTPCR #### [facility] [address] [address] [address] Dwight Albert 03-02-2023 AST [Catalytic activity/Vol] 20 U/L Normal 15-37 [facility] Comment on above: Performed By: #### U RTPCR #### [facility] [address] [address] [address] Dwight Osei 03-02-2023 ALT [Catalytic activity/Vol] 30 U/L Normal 16-63 [facility] Comment on above: Performed By: #### U RTPCR #### [facility] [address] [place] [address] Dr. Dwight Waters URINE T PROTEIN CREAT RATIOo n 03-02-2023 Protein (U) [Mass/Vol] 10.3 mg/dL Normal <=12.0 [facility] Comment on above: Performed By: #### U RTPCR #### [facility] [address] [place] [address] Dr. Dwight Waters UR PROT CREAT RAT 0.15 Normal [facility] Comment on above: Performed By: #### U RTPCR #### [facility] [address] [place] [address] Dr. Dwight Waters URINE CREAT 68.96 mg/dL Normal 20.00-300.00 [facility] Comment on above: Performed By: #### U RTPCR #### [facility] [address] [place] [address] Dr. Dwight Waters BK VIRUS PCR QUANTon 023 BKV DNA QUANT PCR PLASMA Negative Normal Negative [facility] Comment on above: Result Comment: No B K DNA detected. . The linear range of the assay is 22 - 100,000,000 IU/mL. Performed By: #### C MP #### [facility] [address] [place] [address] Dr. Dwight Waters Log10 BKV DNA Plasma Normal [facility] Comment on above: Performed By: #### C MP #### [facility] [address] [place] [address] Dr. Dwight Waters FK506 (TACROLIMUS) WHOLE BLO ODon 12-31-2022 Tacrolimus (FK506), Blood 5.6 ng/mL Normal 2.0-20.0 [facility] Comment on above: Result Comment: Trou gh (immediately following transplant) 15.0 . Trough (steady state, 2 weeks or more after transplant): 3.0 - 8.0 . Performed by LC-MS/MS technology. Performed By: #### C MP #### [facility] [address] [place] [address] Dr. Dwight Waters ALKALINE PHOSPHAon ALP [Catalytic activity/Vol] 96 U/L Normal 46-116 [facility] Comment on above: Performed By: #### C BC #### [facility] [address] [place] [address] Dr. Dwight Waters BILIRUBIN CONJUGATED (DIRECT )on 12-29-2022 BILI, CONJUGATED 0.3 mg/dL Critically high 0.0-0.2 [facility] Comment on above: Performed By: #### C BC #### [facility] [address] [place] [address] Dr. Dwight Waters BILIRUBIN TOTALon 12-29-2022 Bilirubin [Mass/Vol] 1.1 mg/dL Critically high 0.2-1.0 [facility] Comment on above: Performed By: #### C BC #### [facility] [address] [place] [address] Dr. Dwight Waters CBC AUTO DIFFon 12-29-2022 BASO # 0.1 103/ul Normal 0.0-0.1 [facility] Comment on above: Performed By: #### C MP #### [facility] [address] [place] [address] Dr. Dwight Waters Basophils/100 WBC (Bld) 0.8 % Normal 0.2-2.0 [facility] Comment on above: Performed By: #### C MP #### [facility] [address] [place] [address] Dr. Dwight Waters EO # 0.2 103/ul Normal 0.0-0.7 [facility] Comment on above: Performed By: #### C MP #### [facility] [address] [place] [address] Dr. Dwight Waters Eosinophils/100 WBC (Bld) 3.0 % Normal 0.9-7.0 [facility] Comment on above: Performed By: #### C MP #### [facility] [address] [place] [address] Dr. Dwight Waters Erythrocyte distribution width (RBC) [Ratio] 12.9 % Normal 11.0-15.0 [facility] Comment on above: Performed By: #### C MP #### [facility] [address] [place] [address] Dr. Dwight Waters Hematocrit (Bld) [Volume fraction] 46.9 % Normal 42.0-54.0 [facility] Comment on above: Performed By: #### C MP #### [facility] [address] [place] [address] Dr. Dwight Waters Hemoglobin (Bld) [Mass/Vol] 16.1 g/dL Normal 14.0-18.0 [facility] Comment on above: Performed By: #### C MP #### [facility] [address] [place] [address] Dr. Dwight Waters IG # 0.01 10e3/ul Normal 0.00-0.03 [facility] Comment on above: Performed By: #### C MP #### [facility] [address] [place] [address] Dr. Dwight Waters IG % 0.2 % Normal 0.0-0.5 [facility] Comment on above: Performed By: #### C MP #### [facility] [address] [place] [address] Dr. Dwight Waters LYMPH # 1.8 103/ul Normal 1.2-3.8 [facility] Comment on above: Performed By: #### C MP #### [facility] [address] [place] [address] Dr. Dwight Waters Lymphocytes/100 WBC (Bld) 27.9 % Normal 20.5-60.0 [facility] Comment on above: Performed By: #### C MP #### [facility] [address] [place] [address] Dr. Dwight Waters MANUAL DIFF REQ NO Normal [facility] Comment on above: Performed By: #### C MP #### [facility] [address] [place] [address] Dr. Dwight Waters MCH (RBC) [Entitic mass] 28.5 pg Normal 25.9-34.0 [facility] Comment on above: Performed By: #### C MP #### [facility] [address] [address] [address] Dwight Waters MCHC (RBC) [Mass/Vol] 34.3 g/dL Normal 29.9-35.2 [facility] Comment on above: Performed By: #### C MP #### [facility] [address] [address] [address] Dwight Waters MCV (RBC) [Entitic vol] 83.2 fL Normal 80.0-94.0 [facility] Comment on above: Performed By: #### C MP #### [facility] [address] [place] [address] Dr. Dwight Waters MONO # 0.5 103/ul Normal 0.3-0.8 [facility] Comment on above: Performed By: #### C MP #### [facility] [address] [place] [address] Dr. Dwight Waters Monocytes/100 WBC (Bld) 8.1 % Normal 1.7-12.0 [facility] Comment on above: Performed By: #### C MP #### [facility] [address] [place] [address] Dr. Dwight Waters NEUT # 3.8 103/ul Normal 1.4-6.5 [facility] Comment on above: Performed By: #### C MP #### [facility] [address] [place] [address] Dr. Dwight Waters Neutrophils/100 WBC (Bld) 60.0 % Normal 43.0-75.0 [facility] Comment on above: Performed By: #### C MP #### [facility] [address] [place] [address] Dr. Dwight Waters Platelet mean volume (Bld) [Entitic vol] 9.2 fL Critically low 9.5-13.5 [facility] Comment on above: Performed By: #### C MP #### [facility] [address] [place] [address] Dr. Dwight Waters PLT 225 103/ul Normal 150-450 [facility] Comment on above: Performed By: #### C MP #### [facility] [address] [place] [address] Dr. Dwight Waters RBC 5.64 106/ul Normal 4.70-6.10 [facility] Comment on above: Performed By: #### C MP #### [facility] [address] [address] [address] Dwight Waters WBC 6.3 103/ul Normal 4.0-11.0 [facility] Comment on above: Performed By: #### C MP #### [facility] [address] [place] [address] Dr. Dwight Waters GGTon 12-29-2022 Gamma glutamyl transferase [Catalytic activity/Vol] 24 U/L Normal 15-85 [facility] Comment on above: Performed By: #### C MP #### [facility] [address] [place] [address] Dr. Dwight Waters LIPID PROFILEon 12-29-2022 CHOL-HDL RATIO NORM SEE BELOW Normal [facility] Comment on above: Result Comment: 3.3 - 4.4 LOW RISK 4.4 - 7.1 AVERAGE RISK 7.1 - 11.0 MODERATE RISK >11.0 HIGH RISK Performed By: #### U RTPCR #### [facility] [address] [place] [address] Dr. Dwight Waters Cholesterol [Mass/Vol] 87 mg/dL Normal <=200 [facility] Comment on above: Performed By: #### U RTPCR #### [facility] [address] [place] [address] Dr. Dwight Waters Cholesterol in HDL [Mass/Vol] 44 mg/dL Normal 40-60 [facility] Comment on above: Performed By: #### U RTPCR #### [facility] [address] [place] [address] Dr. Dwight Waters Cholesterol in LDL [Mass/Vol] 33.0 mg/dL Normal [facility] Comment on above: Performed By: #### U RTPCR #### [facility] [address] [place] [address] Dr. Dwight Waters Cholesterol.total/Ch olesterol in HDL [Mass ratio] 2.0 {ratio} Normal [facility] Comment on above: Performed By: #### U RTPCR #### [facility] [address] [address] [address] Dwight Waters HDL NORMAL > or = 60 mg/dl - LO W CARDIOVASCULAR RISK <40 mg/dl - HIGH CARDIOVASCULAR RISK Normal [facility] Comment on above: Performed By: #### U RTPCR #### [facility] [address] [place] [address] Dr. Dwight Waters LDL CALC NORMAL SEE BELOW Normal [facility] Comment on above: Result Comment: <100 mg/dl OPTIMAL 100 - 129 mg/dl NEAR OR ABOVE OPTIMAL 130 - 159 mg/dl BORDERLINE HIGH 160 - 189 mg/dl HIGH >190 mg/dl VERY HIGH Performed By: #### U RTPCR #### [facility] [address] [place] [address] Dr. Dwight Waters Triglyceride [Mass/Vol] 50 mg/dL Normal <=150 [facility] Comment on above: Performed By: #### U RTPCR #### [facility] [address] [address] [address] Dwight Waters VLDL CALC 10.0 mg/dL Normal [facility] Comment on above: Performed By: #### U RTPCR #### [facility] [address] [place] [address] Dr. Dwight Waters MAGNESIUMon 12-29-2022 Magnesium [Mass/Vol] 1.6 mg/dL Critically low 1.8-2.4 [facility] Comment on above: Performed By: #### C BC #### [facility] [address] [place] [address] Dr. Dwight Waters RENAL FUNCTION PANELon 12-29 Albumin [Mass/Vol] 3.9 g/dL Normal 3.4-5.0 [facility] Comment on above: Performed By: #### C BC #### [facility] [address] [place] [address] Dr. Dwight Waters Calcium [Mass/Vol] 9.2 mg/dL Normal 8.5-10.1 [facility] Comment on above: Performed By: #### C BC #### [facility] [address] [place], [place] [id number] Dr. Dwight Waters Chloride [Moles/Vol] 109 mmol/L Critically high 98-107 [facility] Comment on above: Performed By: #### C BC #### [facility] [address] [place] [address] Dr. Dwight Waters CO2 [Moles/Vol] 27.0 mmol/L Normal 21.0-32.0 [facility] Comment on above: Performed By: #### C BC #### [facility] [address] [place] [address] Dr. Dwight Waters Creatinine [Mass/Vol] 1.02 mg/dL Normal 0.70-1.30 [facility] Comment on above: Performed By: #### C BC #### [facility] [address] [place] [address] Dr. Dwight Waters EGFR-AF EMIRATI >60 Normal >=60 [facility] Comment on above: Performed By: #### C BC #### [facility] [address] [place] [address] Dr. Dwight Waters EGFR-NON AF EMIRATI >60 Normal >=60 [facility] Comment on above: Performed By: #### C BC #### [facility] [address] [place] [address] Dr. Dwight Waters Glucose [Mass/Vol] 117 mg/dL Critically high 74-106 [facility] Comment on above: Performed By: #### C BC #### [facility] [address] [place] [address] Dr. Dwight Waters Phosphate [Mass/Vol] 3.2 mg/dL Normal 2.6-4.7 [facility] Comment on above: Performed By: #### C BC #### [facility] [address] [place] [address] Dr. Dwight Waters Potassium [Moles/Vol] 4.1 mmol/L Normal 3.5-5.1 [facility] Comment on above: Performed By: #### C BC #### [facility] [address] [place] [address] Dr. Dwight Waters Sodium [Moles/Vol] 144 mmol/L Normal 136-145 [facility] Comment on above: Performed By: #### C BC #### [facility] [address] [place] [address] Dr. Dwight Waters Urea nitrogen [Mass/Vol] 13.0 mg/dL Normal 7.0-18.0 [facility] Comment on above: Performed By: #### C BC #### [facility] [address] [place] [address] Dr. Dwight Waters SGOTon 12-29-2022 AST [Catalytic activity/Vol] 21 U/L Normal 15-37 [facility] Comment on above: Performed By: #### C BC #### [facility] [address] [place] [address] Dr. Dwight Waters SGPTon 12-29-2022 ALT [Catalytic activity/Vol] 32 U/L Normal 16-63 [facility] Comment on above: Performed By: #### C BC #### [facility] [address] [place] [address] Dr. Dwight Waters URINE T PROTEIN CREAT RATIOo n 12-29-2022 Protein (U) [Mass/Vol] 14.3 mg/dL Critically high <=12.0 [facility] Comment on above: Performed By: #### U RTPCR #### [facility] [address] [place] [address] Dr. Dwight Waters UR PROT CREAT RAT 0.17 Normal [facility] Comment on above: Performed By: #### U RTPCR #### [facility] [address] [place] [address] Dr. Dwight Waters URINE CREAT 86.58 mg/dL Normal 20.00-300.00 [facility] Comment on above: Performed By: #### U RTPCR #### [facility] [address] [place] [address] Dr. Dwight Waters FK506 (TACROLIMUS) WHOLE BLO ODon 11-06-2022 Tacrolimus (FK506), Blood 4.9 ng/mL Normal 2.0-20.0 [facility] Comment on above: Result Comment: Trou gh (immediately following transplant) 15.0 . Trough (steady state, 2 weeks or more after transplant): 3.0 - 8.0 . Performed by LC-MS/MS technology. Performed By: #### U RTPCR #### [facility] [address] [place] [address] Dr. Dwight Waters ALKALINE PHOSPHAon ALP [Catalytic activity/Vol] 86 U/L Normal 46-116 [facility] Comment on above: Performed By: #### U RTPCR #### [facility] [address] [place] [address] Dr. Dwight Waters BILIRUBIN CONJUGATED (DIRECT )on 11-04-2022 BILI, CONJUGATED 0.2 mg/dL Normal 0.0-0.2 [facility] Comment on above: Performed By: #### U RTPCR #### [facility] [address] [place] [address] Dr. Dwight Waters BILIRUBIN TOTALon 11-04-2022 Bilirubin [Mass/Vol] 0.8 mg/dL Normal 0.2-1.0 [facility] Comment on above: Performed By: #### U RTPCR #### [facility] [address] [place] [address] Dr. Dwight Waters CBC AUTO DIFFon 11-04-2022 BASO # 0.1 103/ul Normal 0.0-0.1 [facility] Comment on above: Performed By: #### U RTPCR #### [facility] [address] [place] [address] Dr. Dwight Waters Basophils/100 WBC (Bld) 0.9 % Normal 0.2-2.0 [facility] Comment on above: Performed By: #### U RTPCR #### [facility] [address] [place] [address] Dr. Dwight Waters EO # 0.2 103/ul Normal 0.0-0.7 [facility] Comment on above: Performed By: #### U RTPCR #### [facility] [address] [place] [address] Dr. Dwight Waters Eosinophils/100 WBC (Bld) 3.7 % Normal 0.9-7.0 [facility] Comment on above: Performed By: #### U RTPCR #### [facility] [address] [place] [address] Dr. Dwight Waters Erythrocyte distribution width (RBC) [Ratio] 12.9 % Normal 11.0-15.0 [facility] Comment on above: Performed By: #### U RTPCR #### [facility] [address] [place] [address] Dr. Dwight Waters Hematocrit (Bld) [Volume fraction] 48.3 % Normal 42.0-54.0 [facility] Comment on above: Performed By: #### U RTPCR #### [facility] [address] [place] [address] Dr. Dwight Waters Hemoglobin (Bld) [Mass/Vol] 15.6 g/dL Normal 14.0-18.0 [facility] Comment on above: Performed By: #### U RTPCR #### [facility] [address] [place] [address] Dr. Dwight Waters IG # 0.01 10e3/ul Normal 0.00-0.03 [facility] Comment on above: Performed By: #### U RTPCR #### [facility] [address] [place] [address] Dr. Dwight Waters IG % 0.2 % Normal 0.0-0.5 [facility] Comment on above: Performed By: #### U RTPCR #### [facility] [address] [place] [address] Dr. Dwight Waters LYMPH # 1.9 103/ul Normal 1.2-3.8 [facility] Comment on above: Performed By: #### U RTPCR #### [facility] [address] [place] [address] Dr. Dwight Waters Lymphocytes/100 WBC (Bld) 33.0 % Normal 20.5-60.0 [facility] Comment on above: Performed By: #### U RTPCR #### [facility] [address] [place] [address] Dr. Dwight Waters MANUAL DIFF REQ NO Normal [facility] Comment on above: Performed By: #### U RTPCR #### [facility] [address] [address] [address] Dwgiht Waters MCH (RBC) [Entitic mass] 27.6 pg Normal 25.9-34.0 [facility] Comment on above: Performed By: #### U RTPCR #### [facility] [address] [place] [address] Dr. Dwight Waters MCHC (RBC) [Mass/Vol] 32.3 g/dL Normal 29.9-35.2 [facility] Comment on above: Performed By: #### U RTPCR #### [facility] [address] [place] [address] Dr. Dwight Waters MCV (RBC) [Entitic vol] 85.5 fL Normal 80.0-94.0 [facility] Comment on above: Performed By: #### U RTPCR #### [facility] [address] [place] [address] Dr. Dwight Waters MONO # 0.5 103/ul Normal 0.3-0.8 [facility] Comment on above: Performed By: #### U RTPCR #### [facility] [address] [place] [address] Dr. Dwight Waters Monocytes/100 WBC (Bld) 8.8 % Normal 1.7-12.0 [facility] Comment on above: Performed By: #### U RTPCR #### [facility] [address] [place] [address] Dr. Dwight Waters NEUT # 3.1 103/ul Normal 1.4-6.5 [facility] Comment on above: Performed By: #### U RTPCR #### [facility] [address] [place] [address] Dr. Dwight Waters Neutrophils/100 WBC (Bld) 53.4 % Normal 43.0-75.0 [facility] Comment on above: Performed By: #### U RTPCR #### [facility] [address] [place] [address] Dr. Dwight Waters Platelet mean volume (Bld) [Entitic vol] 9.2 fL Critically low 9.5-13.5 [facility] Comment on above: Performed By: #### U RTPCR #### [facility] [address] [place] [address] Dr. Dwight Waters PLT 255 103/ul Normal 150-450 [facility] Comment on above: Performed By: #### U RTPCR #### [facility] [address] [place] [address] Dr. Dwight Waters RBC 5.65 106/ul Normal 4.70-6.10 [facility] Comment on above: Performed By: #### U RTPCR #### [facility] [address] [place] [address] Dr. Dwight Waters WBC 5.7 103/ul Normal 4.0-11.0 [facility] Comment on above: Performed By: #### U RTPCR #### [facility] [address] [place] [address] Dr. Dwight Waters GGTon 11-04-2022 Gamma glutamyl transferase [Catalytic activity/Vol] 22 U/L Normal 15-85 [facility] Comment on above: Performed By: #### U RTPCR #### [facility] [address] [place] [address] Dr. Dwight Waters MAGNESIUMon 11-04-2022 Magnesium [Mass/Vol] 1.8 mg/dL Normal 1.8-2.4 [facility] Comment on above: Performed By: #### U RTPCR #### [facility] [address] [place] [address] Dr. Dwight Waters RENAL FUNCTION PANELon 11-04 Albumin [Mass/Vol] 3.8 g/dL Normal 3.4-5.0 [facility] Comment on above: Performed By: #### U RTPCR #### [facility] [address] [place] [address] Dr. Dwight Waters Calcium [Mass/Vol] 9.3 mg/dL Normal 8.5-10.1 [facility] Comment on above: Performed By: #### U RTPCR #### [facility] [address] [place] [address] Dr. Dwight Waters Chloride [Moles/Vol] 107 mmol/L Normal 98-107 [facility] Comment on above: Performed By: #### U RTPCR #### [facility] [address] [address] [address] Dwight Waters CO2 [Moles/Vol] 29.2 mmol/L Normal 21.0-32.0 [facility] Comment on above: Performed By: #### U RTPCR #### [facility] [address] [place] [address] Dr. Dwight Waters Creatinine [Mass/Vol] 1.07 mg/dL Normal 0.70-1.30 [facility] Comment on above: Performed By: #### U RTPCR #### [facility] [address] [place] [address] Dr. Dwight Waters EGFR-AF EMIRATI >60 Normal >=60 [facility] Comment on above: Performed By: #### U RTPCR #### [facility] [address] [place] [address] Dr. Dwight Waters EGFR-NON AF EMIRATI >60 Normal >=60 [facility] Comment on above: Performed By: #### U RTPCR #### [facility] [address] [place] [address] Dr. Dwight Waters Glucose [Mass/Vol] 106 mg/dL Normal 74-106 [facility] Comment on above: Performed By: #### U RTPCR #### [facility] [address] [place] [address] Dr. Dwight Waters Phosphate [Mass/Vol] 2.8 mg/dL Normal 2.6-4.7 [facility] Comment on above: Performed By: #### U RTPCR #### [facility] [address] [place] [address] Dr. Dwight Waters Potassium [Moles/Vol] 4.1 mmol/L Normal 3.5-5.1 [facility] Comment on above: Performed By: #### U RTPCR #### [facility] [address] [place] [address] Dr. Dwight Waters Sodium [Moles/Vol] 143 mmol/L Normal 136-145 [facility] Comment on above: Performed By: #### U RTPCR #### [facility] [address] [place] [address] Dr. Dwight Waters Urea nitrogen [Mass/Vol] 12.0 mg/dL Normal 7.0-18.0 [facility] Comment on above: Performed By: #### U RTPCR #### [facility] [address] [place] [address] Dr. Dwight Albert 11-04-2022 AST [Catalytic activity/Vol] 19 U/L Normal 15-37 [facility] Comment on above: Performed By: #### U RTPCR #### [facility] [address] [place] [address] Dr. Dwight Osei 11-04-2022 ALT [Catalytic activity/Vol] 28 U/L Normal 16-63 [facility] Comment on above: Performed By: #### U RTPCR #### [facility] [address] [place] [address] Dr. Dwight Waters URINE T PROTEIN CREAT RATIOo n 11-04-2022 Protein (U) [Mass/Vol] 10.7 mg/dL Normal <=12.0 [facility] Comment on above: Performed By: #### U RTPCR #### [facility] [address] [place] [address] Dr. Dwight Waters UR PROT CREAT RAT 0.13 Normal [facility] Comment on above: Performed By: #### U RTPCR #### [facility] [address] [place] [address] Dr. Dwight Waters URINE CREAT 84.50 mg/dL Normal 20.00-300.00 [facility] Comment on above: Performed By: #### U RTPCR #### [facility] [address] [place] [address] Dr. Dwight Waters FK506 (TACROLIMUS) WHOLE BLO ODon 09-18-2022 Tacrolimus (FK506), Blood 4.6 ng/mL Normal 2.0-20.0 [facility] Comment on above: Result Comment: Trou gh (immediately following transplant) 15.0 . Trough (steady state, 2 weeks or more after transplant): 3.0 - 8.0 . Performed by LC-MS/MS technology. Performed By: #### U RTPCR #### [facility] [address] [place] [address] Dr. Dwight Waters BK VIRUS PCR QUANTon 022 BKV DNA QUANT PCR PLASMA Negative Normal Negative [facility] Comment on above: Result Comment: No B K DNA detected. . The linear range of the assay is 22 - 100,000,000 IU/mL. Performed By: #### U RTPCR #### [facility] [address] [place] [address] Dr. Dwight Waters Log10 BKV DNA Plasma Normal [facility] Comment on above: Performed By: #### U RTPCR #### [facility] [address] [place] [address] Dr. Dwight Waters ALKALINE PHOSPHAon ALP [Catalytic activity/Vol] 92 U/L Normal 46-116 [facility] Comment on above: Performed By: #### U RTPCR #### [facility] [address] [place] [address] Dr. Dwight Waters BILIRUBIN CONJUGATED (DIRECT )on 09-15-2022 BILI, CONJUGATED 0.3 mg/dL Critically high 0.0-0.2 [facility] Comment on above: Performed By: #### U RTPCR #### [facility] [address] [place] [address] Dr. Dwight Waters BILIRUBIN TOTALon 09-15-2022 Bilirubin [Mass/Vol] 1.1 mg/dL Critically high 0.2-1.0 [facility] Comment on above: Performed By: #### U RTPCR #### [facility] [address] [place] [address] Dr. Dwight Waters CBC AUTO DIFFon 09-15-2022 BASO # 0.1 103/ul Normal 0.0-0.1 [facility] Comment on above: Performed By: #### C BC #### [facility] [address] [place] [address] Dr. Dwight Waters Basophils/100 WBC (Bld) 0.8 % Normal 0.2-2.0 [facility] Comment on above: Performed By: #### C BC #### [facility] [address] [address] [address] Dwight Waters EO # 0.2 103/ul Normal 0.0-0.7 [facility] Comment on above: Performed By: #### C BC #### [facility] [address] [place] [address] Dr. Dwight Waters Eosinophils/100 WBC (Bld) 3.5 % Normal 0.9-7.0 [facility] Comment on above: Performed By: #### C BC #### [facility] [address] [place] [address] Dr. Dwight Waters Erythrocyte distribution width (RBC) [Ratio] 13.0 % Normal 11.0-15.0 [facility] Comment on above: Performed By: #### C BC #### [facility] [address] [place] [address] Dr. Dwight Waters Hematocrit (Bld) [Volume fraction] 50.0 % Normal 42.0-54.0 [facility] Comment on above: Performed By: #### C BC #### [facility] [address] [place] [address] Dr. Dwight Waters Hemoglobin (Bld) [Mass/Vol] 16.0 g/dL Normal 14.0-18.0 [facility] Comment on above: Performed By: #### C BC #### [facility] [address] [place] [address] Dr. Dwight Waters IG # 0.02 10e3/ul Normal 0.00-0.03 [facility] Comment on above: Performed By: #### C BC #### [facility] [address] [place] [address] Dr. Dwight Waters IG % 0.3 % Normal 0.0-0.5 [facility] Comment on above: Performed By: #### C BC #### [facility] [address] [place] [address] Dr. Dwight Waters LYMPH # 1.8 103/ul Normal 1.2-3.8 [facility] Comment on above: Performed By: #### C BC #### [facility] [address] [place] [address] Dr. Dwight Waters Lymphocytes/100 WBC (Bld) 26.5 % Normal 20.5-60.0 [facility] Comment on above: Performed By: #### C BC #### [facility] [address] [place] [address] Dr. Dwight Waters MANUAL DIFF REQ NO Normal [facility] Comment on above: Performed By: #### C BC #### [facility] [address] [place] [address] Dr. Dwight Waters MCH (RBC) [Entitic mass] 28.1 pg Normal 25.9-34.0 [facility] Comment on above: Performed By: #### C BC #### [facility] [address] [place] [address] Dr. Dwight Waters MCHC (RBC) [Mass/Vol] 32.0 g/dL Normal 29.9-35.2 [facility] Comment on above: Performed By: #### C BC #### [facility] [address] [place] [address] Dr. Dwight Waters MCV (RBC) [Entitic vol] 87.9 fL Normal 80.0-94.0 [facility] Comment on above: Performed By: #### C BC #### [facility] [address] [place] [address] Dr. Dwight Waters MONO # 0.5 103/ul Normal 0.3-0.8 [facility] Comment on above: Performed By: #### C BC #### [facility] [address] [place] [address] Dr. Dwight Waters Monocytes/100 WBC (Bld) 8.1 % Normal 1.7-12.0 [facility] Comment on above: Performed By: #### C BC #### [facility] [address] [place] [address] Dr. Dwight Waters NEUT # 4.0 103/ul Normal 1.4-6.5 [facility] Comment on above: Performed By: #### C BC #### [facility] [address] [place] [address] Dr. Dwight Waters Neutrophils/100 WBC (Bld) 60.8 % Normal 43.0-75.0 [facility] Comment on above: Performed By: #### C BC #### [facility] [address] [place] [address] Dr. Dwight Waters Platelet mean volume (Bld) [Entitic vol] 9.4 fL Critically low 9.5-13.5 [facility] Comment on above: Performed By: #### C BC #### [facility] [address] [place] [address] Dr. Dwight Waters PLT 265 103/ul Normal 150-450 [facility] Comment on above: Performed By: #### C BC #### [facility] [address] [place] [address] Dr. Dwight Waters RBC 5.69 106/ul Normal 4.70-6.10 [facility] Comment on above: Performed By: #### C BC #### [facility] [address] [place] [address] Dr. Dwight Waters WBC 6.6 103/ul Normal 4.0-11.0 [facility] Comment on above: Performed By: #### C BC #### [facility] [address] [place] [address] Dr. Dwight Waters GGTon 09-15-2022 Gamma glutamyl transferase [Catalytic activity/Vol] 23 U/L Normal 15-85 [facility] Comment on above: Performed By: #### U RTPCR #### [facility] [address] [place] [address] Dr. Dwight Waters MAGNESIUMon 09-15-2022 Magnesium [Mass/Vol] 1.8 mg/dL Normal 1.8-2.4 [facility] Comment on above: Performed By: #### U RTPCR #### [facility] [address] [place] [address] Dr. Dwight Waters RENAL FUNCTION PANELon 09-15 Albumin [Mass/Vol] 4.1 g/dL Normal 3.4-5.0 [facility] Comment on above: Performed By: #### C BC #### [facility] [address] [address] [address] Dwight Waters Calcium [Mass/Vol] 9.3 mg/dL Normal 8.5-10.1 [facility] Comment on above: Performed By: #### C BC #### [facility] [address] [address] [address] Dwight Waters Chloride [Moles/Vol] 107 mmol/L Normal 98-107 [facility] Comment on above: Performed By: #### C BC #### [facility] [address] [address] [address] Dwight Waters CO2 [Moles/Vol] 25.6 mmol/L Normal 21.0-32.0 [facility] Comment on above: Performed By: #### C BC #### [facility] [address] [place] [address] Dr. Dwight Waters Creatinine [Mass/Vol] 1.01 mg/dL Normal 0.70-1.30 [facility] Comment on above: Performed By: #### C BC #### [facility] [address] [address] [address] Dwight Waters EGFR-AF EMIRATI >60 Normal >=60 [facility] Comment on above: Performed By: #### C BC #### [facility] [address] [place] [address] Dr. Dwight Waters EGFR-NON AF EMIRATI >60 Normal >=60 [facility] Comment on above: Performed By: #### C BC #### [facility] [address] [place] [address] Dr. Dwight Waters Glucose [Mass/Vol] 119 mg/dL Critically high 74-[address] [facility] Comment on above: Performed By: #### C BC #### [facility] [address] [place] [address] Dr. Dwight Waters Phosphate [Mass/Vol] 2.8 mg/dL Normal 2.6-4.7 [facility] Comment on above: Performed By: #### C BC #### [facility] [address] [place] [address] Dr. Dwight Waters Potassium [Moles/Vol] 4.0 mmol/L Normal 3.5-5.1 [facility] Comment on above: Performed By: #### C BC #### [facility] [address] [place] [address] Dr. Dwight Waters Sodium [Moles/Vol] 141 mmol/L Normal 136-145 [facility] Comment on above: Performed By: #### C BC #### [facility] [address] [place] [address] Dr. Dwight Waters Urea nitrogen [Mass/Vol] 15.0 mg/dL Normal 7.0-18.0 [facility] Comment on above: Performed By: #### C BC #### [facility] [address] [place] [address] Dr. Dwight Waters SGOTon 09-15-2022 AST [Catalytic activity/Vol] 18 U/L Normal 15-37 [facility] Comment on above: Performed By: #### U RTPCR #### [facility] [address] [place] [address] Dr. Dwight Waters SGPTon 09-15-2022 ALT [Catalytic activity/Vol] 32 U/L Normal 16-63 [facility] Comment on above: Performed By: #### C BC #### [facility] [address] [place] [address] Dr. Dwight Waters URINE T PROTEIN CREAT RATIOo n 09-15-2022 Protein (U) [Mass/Vol] 14.1 mg/dL Critically high <=12.0 [facility] Comment on above: Performed By: #### U RTPCR #### [facility] [address] [place] [address] Dr. Dwight Waters UR PROT CREAT RAT 0.14 Normal [facility] Comment on above: Performed By: #### U RTPCR #### [facility] [address] [place] [address] Dr. Dwight Waters URINE CREAT 98.89 mg/dL Normal 20.00-300.00 [facility] Comment on above: Performed By: #### U RTPCR #### [facility] [address] [address] [address] Dwight Waters US CAROTID ART BILon [...] MÓNICA JIMENEZ Date: 2022-08-28 13:20 Normal [facility] FK506 (TACROLIMUS) WHOLE BLO ODon 08-17-2022 Tacrolimus (FK506), Blood 9.9 ng/mL Normal 2.0-20.0 [facility] Comment on above: Result Comment: Trou gh (immediately following transplant) 15.0 . Trough (steady state, 2 weeks or more after transplant): 3.0 - 8.0 . Performed by LC-MS/MS technology. Performed By: #### F [id number] #### [facility] [address] [place] [address] Dr. Dwight Waters BK VIRUS PCR QUANTon 022 BKV DNA QUANT PCR PLASMA Negative Normal Negative [facility] Comment on above: Result Comment: No B K DNA detected. . The linear range of the assay is 22 - 100,000,000 IU/mL. Performed By: #### U RTPCR #### [facility] [address] [place] [address] Dr. Dwight Waters Log10 BKV DNA Plasma Normal [facility] Comment on above: Performed By: #### U RTPCR #### [facility] [address] [place] [address] Dr. Dwight Waters ALBUMINon 08-14-2022 Albumin [Mass/Vol] 4.2 g/dL Normal 3.4-5.0 [facility] Comment on above: Performed By: #### F [id number] #### [facility] [address] [place] [address] Dr. Dwight Waters ALKALINE PHOSPHAon ALP [Catalytic activity/Vol] 92 U/L Normal 46-116 [facility] Comment on above: Performed By: #### C BC #### [facility] [address] [place] [address] Dr. Dwight Waters BILIRUBIN CONJUGATED (DIRECT )on 08-14-2022 BILI, CONJUGATED 0.3 mg/dL Critically high 0.0-0.2 [facility] Comment on above: Performed By: #### F [id number] #### [facility] [address] [place] [address] Dr. Dwight Waters BILIRUBIN TOTALon 08-14-2022 Bilirubin [Mass/Vol] 1.5 mg/dL Critically high 0.2-1.0 [facility] Comment on above: Performed By: #### F [id number] #### [facility] [address] [place] [address] Dr. Dwight Waters BUNon 08-14-2022 Urea nitrogen [Mass/Vol] 11.0 mg/dL Normal 7.0-18.0 [facility] Comment on above: Performed By: #### C BC #### [facility] [address] [place] [address] Dr. Dwight Waters CALCIUMon 08-14-2022 Calcium [Mass/Vol] 9.4 mg/dL Normal 8.5-10.1 [facility] Comment on above: Performed By: #### F [id number] #### [facility] [address] [place] [address] Dr. Dwight Waters CBC AUTO DIFFon 08-14-2022 BASO # 0.0 103/ul Normal 0.0-0.1 [facility] Comment on above: Performed By: #### C MP #### [facility] [address] [place] [address] Dr. Dwight Waters Basophils/100 WBC (Bld) 0.5 % Normal 0.2-2.0 [facility] Comment on above: Performed By: #### C MP #### [facility] [address] [place] [address] Dr. Dwight Waters EO # 0.2 103/ul Normal 0.0-0.7 [facility] Comment on above: Performed By: #### C MP #### [facility] [address] [place] [address] Dr. Dwight Waters Eosinophils/100 WBC (Bld) 2.6 % Normal 0.9-7.0 [facility] Comment on above: Performed By: #### C MP #### [facility] [address] [place] [address] Dr. Dwight Waters Erythrocyte distribution width (RBC) [Ratio] 13.1 % Normal 11.0-15.0 [facility] Comment on above: Performed By: #### C MP #### [facility] [address] [place] [address] Dr. Dwight Waters Hematocrit (Bld) [Volume fraction] 47.0 % Normal 42.0-54.0 [facility] Comment on above: Performed By: #### C MP #### [facility] [address] [place] [address] Dr. Dwight Waters Hemoglobin (Bld) [Mass/Vol] 15.3 g/dL Normal 14.0-18.0 [facility] Comment on above: Performed By: #### C MP #### [facility] [address] [place] [address] Dr. Dwight Waters IG # 0.01 10e3/ul Normal 0.00-0.03 [facility] Comment on above: Performed By: #### C MP #### [facility] [address] [place] [address] Dr. Dwight Waters IG % 0.1 % Normal 0.0-0.5 [facility] Comment on above: Performed By: #### C MP #### [facility] [address] [place] [address] Dr. Dwight Waters LYMPH # 2.3 103/ul Normal 1.2-3.8 [facility] Comment on above: Performed By: #### C MP #### [facility] [address] [place] [address] Dr. Dwight Waters Lymphocytes/100 WBC (Bld) 29.8 % Normal 20.5-60.0 [facility] Comment on above: Performed By: #### C MP #### [facility] [address] [place] [address] Dr. Dwight Waters MANUAL DIFF REQ NO Normal [facility] Comment on above: Performed By: #### C MP #### [facility] [address] [place] [address] Dr. Dwight Waters MCH (RBC) [Entitic mass] 28.2 pg Normal 25.9-34.0 [facility] Comment on above: Performed By: #### C MP #### [facility] [address] [place] [address] Dr. Dwight Waters MCHC (RBC) [Mass/Vol] 32.6 g/dL Normal 29.9-35.2 [facility] Comment on above: Performed By: #### C MP #### [facility] [address] [place] [address] Dr. Dwight Waters MCV (RBC) [Entitic vol] 86.7 fL Normal 80.0-94.0 [facility] Comment on above: Performed By: #### C MP #### [facility] [address] [place] [address] Dr. Dwight Waters MONO # 0.7 103/ul Normal 0.3-0.8 [facility] Comment on above: Performed By: #### C MP #### [facility] [address] [place] [address] Dr. Dwight Waters Monocytes/100 WBC (Bld) 8.5 % Normal 1.7-12.0 [facility] Comment on above: Performed By: #### C MP #### [facility] [address] [place] [address] Dr. Dwight Waters NEUT # 4.5 103/ul Normal 1.4-6.5 [facility] Comment on above: Performed By: #### C MP #### [facility] [address] [place] [address] Dr. Dwight Waters Neutrophils/100 WBC (Bld) 58.5 % Normal 43.0-75.0 [facility] Comment on above: Performed By: #### C MP #### [facility] [address] [address] [address] Dwight Waters Platelet mean volume (Bld) [Entitic vol] 9.7 fL Normal 9.5-13.5 [facility] Comment on above: Performed By: #### C MP #### [facility] [address] [address] [address] Dwight Waters PLT 266 103/ul Normal 150-450 [facility] Comment on above: Performed By: #### C MP #### [facility] [address] [address] [address] Dwight Waters RBC 5.42 106/ul Normal 4.70-6.10 [facility] Comment on above: Performed By: #### C MP #### [facility] [address] [place] [address] Dr. Dwight Waters WBC 7.6 103/ul Normal 4.0-11.0 [facility] Comment on above: Performed By: #### C MP #### [facility] [address] [place] [address] Dr. Dwight Waters CHLORIDEon 08-14-2022 Chloride [Moles/Vol] 104 mmol/L Normal 98-107 [facility] Comment on above: Performed By: #### C BC #### [facility] [address] [place] [address] Dr. Dwight Waters CO2on 08-14-2022 CO2 [Moles/Vol] 27.9 mmol/L Normal 21.0-32.0 [facility] Comment on above: Performed By: #### C BC #### [facility] [address] [address] [address] Dwight Waters CREATININEon 08-14-2022 Creatinine [Mass/Vol] 1.08 mg/dL Normal 0.70-1.30 [facility] Comment on above: Performed By: #### C BC #### [facility] [address] [place] [address] Dr. Dwight Waters EGFR-AF EMIRATI >60 Normal >=60 [facility] Comment on above: Performed By: #### C BC #### [facility] [address] [place] [address] Dr. Dwight Waters EGFR-NON AF EMIRATI >60 Normal >=60 [facility] Comment on above: Performed By: #### C BC #### [facility] [address] [place] [address] Dr. Dwight Waters GGTon 08-14-2022 Gamma glutamyl transferase [Catalytic activity/Vol] 24 U/L Normal 15-85 [facility] Comment on above: Performed By: #### F [id number] #### [facility] [address] [place] [address] Dr. Dwight Waters GLUCOSE BLOODon 08-14-2022 Glucose [Mass/Vol] 111 mg/dL Critically high 74-[address] [facility] Comment on above: Performed By: #### C BC #### [facility] [address] [place] [address] Dr. Dwight Waters MAGNESIUMon 08-14-2022 Magnesium [Mass/Vol] 1.4 mg/dL Critically low 1.8-2.4 [facility] Comment on above: Performed By: #### C BC #### [facility] [address] [place] [address] Dr. Dwight Waters NAon 08-14-2022 Sodium [Moles/Vol] 140 mmol/L Normal 136-145 [facility] Comment on above: Performed By: #### F [id number] #### [facility] [address] [place] [address] Dr. Dwight Waters PHOSPHORUSon 08-14-2022 Phosphate [Mass/Vol] 3.1 mg/dL Normal 2.6-4.7 [facility] Comment on above: Performed By: #### C BC #### [facility] [address] [place] [address] Dr. Dwight Waters POTASSIUMon 08-14-2022 Potassium [Moles/Vol] 3.5 mmol/L Normal 3.5-5.1 [facility] Comment on above: Performed By: #### C BC #### [facility] [address] [place] [address] Dr. Dwight Waters SGOTon 08-14-2022 AST [Catalytic activity/Vol] 17 U/L Normal 15-37 [facility] Comment on above: Performed By: #### F [id number] #### [facility] [address] [place] [address] Dr. Dwight Waters SGPTon 08-14-2022 ALT [Catalytic activity/Vol] 22 U/L Normal 16-63 [facility] Comment on above: Performed By: #### F [id number] #### [facility] [address] [place] [address] Dr. Dwight Waters URINE T PROTEIN CREAT RATIOo n 08-14-2022 Protein (U) [Mass/Vol] 10.7 mg/dL Normal <=12.0 [facility] Comment on above: Performed By: #### F [id number] #### [facility] [address] [place] [address] Dr. Dwight Waters UR PROT CREAT RAT 0.10 Normal [facility] Comment on above: Performed By: #### F [id number] #### [facility] [address] [place] [address] Dr. Dwight Waters URINE CREAT 104.28 mg/dL Normal 20.00-300.00 [facility] Comment on above: Performed By: #### F [id number] #### [facility] [address] [place] [address] Dr. Dwight Waters NEPHROSTOMY TUBE REMOVALon 0 [...] Assisting physician present for entire procedure: yes [facility] Radiology Study observation (narrative) [facility] FK506 (TACROLIMUS) WHOLE BLO ODon 07-06-2022 Tacrolimus (FK506), Blood 9.5 ng/mL Normal 2.0-20.0 [facility] Comment on above: Result Comment: Trou gh (immediately following transplant) 15.0 . Trough (steady state, 2 weeks or more after transplant): 3.0 - 8.0 . Performed by LC-MS/MS technology. Performed By: #### C MP #### [facility] [address] [place] [address] Dr. Dwight Waters ALBUMINon 07-03-2022 Albumin [Mass/Vol] 3.7 g/dL Normal 3.4-5.0 [facility] Comment on above: Performed By: #### U RTPCR #### [facility] [address] [place] [address] Dr. Dwgiht Waters ALKALINE PHOSPHAon ALP [Catalytic activity/Vol] 76 U/L Normal 46-116 [facility] Comment on above: Performed By: #### U RTPCR #### [facility] [address] [place] [address] Dr. Dwight Waters BILIRUBIN CONJUGATED (DIRECT )on 07-03-2022 BILI, CONJUGATED 0.3 mg/dL Critically high 0.0-0.2 [facility] Comment on above: Performed By: #### C BC #### [facility] [address] [place] [address] Dr. Dwight Waters BILIRUBIN TOTALon 07-03-2022 Bilirubin [Mass/Vol] 1.4 mg/dL Critically high 0.2-1.0 [facility] Comment on above: Performed By: #### C BC #### [facility] [address] [place] [address] Dr. Dwight Waters BUNon 07-03-2022 Urea nitrogen [Mass/Vol] 15.0 mg/dL Normal 7.0-18.0 [facility] Comment on above: Performed By: #### C BC #### [facility] [address] [place] [address] Dr. Dwight Waters CALCIUMon 07-03-2022 Calcium [Mass/Vol] 9.4 mg/dL Normal 8.5-10.1 [facility] Comment on above: Performed By: #### U RTPCR #### [facility] [address] [place] [address] Dr. Dwight Waters CBC AUTO DIFFon 07-03-2022 BASO # 0.0 103/ul Normal 0.0-0.1 [facility] Comment on above: Performed By: #### U RTPCR #### [facility] [address] [place] [address] Dr. Dwight Waters Basophils/100 WBC (Bld) 0.6 % Normal 0.2-2.0 [facility] Comment on above: Performed By: #### U RTPCR #### [facility] [address] [place] [address] Dr. Dwight Waters EO # 0.2 103/ul Normal 0.0-0.7 [facility] Comment on above: Performed By: #### U RTPCR #### [facility] [address] [place] [address] Dr. Dwight Waters Eosinophils/100 WBC (Bld) 3.5 % Normal 0.9-7.0 [facility] Comment on above: Performed By: #### U RTPCR #### [facility] [address] [place] [address] Dr. Dwight Waters Erythrocyte distribution width (RBC) [Ratio] 12.9 % Normal 11.0-15.0 [facility] Comment on above: Performed By: #### U RTPCR #### [facility] [address] [place] [address] Dr. Dwight Waters Hematocrit (Bld) [Volume fraction] 44.2 % Normal 42.0-54.0 [facility] Comment on above: Performed By: #### U RTPCR #### [facility] [address] [place] [address] Dr. Dwight Waters Hemoglobin (Bld) [Mass/Vol] 14.6 g/dL Normal 14.0-18.0 [facility] Comment on above: Performed By: #### U RTPCR #### [facility] [address] [place] [address] Dr. Dwight Waters IG # 0.02 10e3/ul Normal 0.00-0.03 [facility] Comment on above: Performed By: #### U RTPCR #### [facility] [address] [place] [address] Dr. Dwight Waters IG % 0.3 % Normal 0.0-0.5 [facility] Comment on above: Performed By: #### U RTPCR #### [facility] [address] [place] [address] Dr. Dwight Waters LYMPH # 2.0 103/ul Normal 1.2-3.8 [facility] Comment on above: Performed By: #### U RTPCR #### [facility] [address] [place] [address] Dr. Dwight Waters Lymphocytes/100 WBC (Bld) 28.4 % Normal 20.5-60.0 [facility] Comment on above: Performed By: #### U RTPCR #### [facility] [address] [place] [address] Dr. Dwight Waters MANUAL DIFF REQ NO Normal [facility] Comment on above: Performed By: #### U RTPCR #### [facility] [address] [place] [address] Dr. Dwight Waters MCH (RBC) [Entitic mass] 28.6 pg Normal 25.9-34.0 [facility] Comment on above: Performed By: #### U RTPCR #### [facility] [address] [address] [address] Dwight Waters MCHC (RBC) [Mass/Vol] 33.0 g/dL Normal 29.9-35.2 [facility] Comment on above: Performed By: #### U RTPCR #### [facility] [address] [place] [address] Dr. Dwihgt Waters MCV (RBC) [Entitic vol] 86.7 fL Normal 80.0-94.0 [facility] Comment on above: Performed By: #### U RTPCR #### [facility] [address] [place] [address] Dr. Dwight Waters MONO # 0.6 103/ul Normal 0.3-0.8 [facility] Comment on above: Performed By: #### U RTPCR #### [facility] [address] [place] [address] Dr. Dwight Waters Monocytes/100 WBC (Bld) 9.1 % Normal 1.7-12.0 [facility] Comment on above: Performed By: #### U RTPCR #### [facility] [address] [place] [address] Dr. Dwight Waters NEUT # 4.0 103/ul Normal 1.4-6.5 [facility] Comment on above: Performed By: #### U RTPCR #### [facility] [address] [place] [address] Dr. Dwight Waters Neutrophils/100 WBC (Bld) 58.1 % Normal 43.0-75.0 [facility] Comment on above: Performed By: #### U RTPCR #### [facility] [address] [place] [address] Dr. Dwight Waters Platelet mean volume (Bld) [Entitic vol] 9.5 fL Normal 9.5-13.5 [facility] Comment on above: Performed By: #### U RTPCR #### [facility] [address] [place] [address] Dr. Dwight Waters PLT 292 103/ul Normal 150-450 [facility] Comment on above: Performed By: #### U RTPCR #### [facility] [address] [place] [address] Dr. Dwight Waters RBC 5.10 106/ul Normal 4.70-6.10 [facility] Comment on above: Performed By: #### U RTPCR #### [facility] [address] [place] [address] Dr. Dwight Waters WBC 6.9 103/ul Normal 4.0-11.0 [facility] Comment on above: Performed By: #### U RTPCR #### [facility] [address] [place] [address] Dr. Dwight Waters CHLORIDEon 07-03-2022 Chloride [Moles/Vol] 108 mmol/L Critically high 98-107 [facility] Comment on above: Performed By: #### C BC #### [facility] [address] [place] [address] Dr. Dwight Waters CO2on 07-03-2022 CO2 [Moles/Vol] 25.2 mmol/L Normal 21.0-32.0 [facility] Comment on above: Performed By: #### C BC #### [facility] [address] [place] [address] Dr. Dwight Waters CREATININEon 07-03-2022 Creatinine [Mass/Vol] 1.03 mg/dL Normal 0.70-1.30 [facility] Comment on above: Performed By: #### U RTPCR #### [facility] [address] [place] [address] Dr. Dwight Waters EGFR-AF EMIRATI >60 Normal >=60 [facility] Comment on above: Performed By: #### U RTPCR #### [facility] [address] [place] [address] Dr. Dwight Waters EGFR-NON AF EMIRATI >60 Normal >=60 [facility] Comment on above: Performed By: #### U RTPCR #### [facility] [address] [place] [address] Dr. Dwight Waters GGTon 07-03-2022 Gamma glutamyl transferase [Catalytic activity/Vol] 31 U/L Normal 15-85 [facility] Comment on above: Performed By: #### U RTPCR #### [facility] [address] [place] [address] Dr. Dwight Waters GLUCOSE BLOODon 07-03-2022 Glucose [Mass/Vol] 119 mg/dL Critically high 74-[address] [facility] Comment on above: Performed By: #### U RTPCR #### [facility] [address] [place] [address] Dr. Dwight Waters MAGNESIUMon 07-03-2022 Magnesium [Mass/Vol] 1.4 mg/dL Critically low 1.8-2.4 [facility] Comment on above: Performed By: #### C BC #### [facility] [address] [place] [address] Dr. Dwight Waters NAon 07-03-2022 Sodium [Moles/Vol] 142 mmol/L Normal 136-145 [facility] Comment on above: Performed By: #### C MP #### [facility] [address] [place] [address] Dr. Dwight Waters PHOSPHORUSon 07-03-2022 Phosphate [Mass/Vol] 3.4 mg/dL Normal 2.6-4.7 [facility] Comment on above: Performed By: #### C BC #### [facility] [address] [place] [address] Dr. Dwight Waters POTASSIUMon 07-03-2022 Potassium [Moles/Vol] 4.1 mmol/L Normal 3.5-5.1 [facility] Comment on above: Performed By: #### C BC #### [facility] [address] [place] [address] Dr. Dwight Waters SGOTon 07-03-2022 AST [Catalytic activity/Vol] 14 U/L Critically low 15-37 [facility] Comment on above: Performed By: #### C BC #### [facility] [address] [place] [address] Dr. Dwight Waters SGPTon 07-03-2022 ALT [Catalytic activity/Vol] 25 U/L Normal 16-63 [facility] Comment on above: Performed By: #### C #### [facility] [address] [address] [address] Dwight Waters US KIDNEYSon 07-03-2022 US KIDNEYS Ultrasound kidneys, bilateral HISTORY: Transplant of kidney , pain in the right lower quadrant COMPARISON: None. TECHNIQUE: Transabdominal ultrasound imaging of both kidneys was performed. FINDINGS: The [place] kidneys are diffusely echogenic and atrophic with cortical thinning. The right kidney measures 8.3 x 3.5 x 4.07 m and the left measures 9.9 x 3.8 x 3.6 cm. No hydronephrosis of the [place] kidneys. There is a renal transplant in [...] stone involving the renal transplant. 2. Atrophic [place] kidneys. 3. Normal bladder. Electronically authenticated by: ARCELIA PIZARRO Date: 2022-07-03 17:22 Normal [facility] CT Abdomen and Pelvis WO con traston 06-27-2022 IMPRESSION: 1. Both [place] kidneys are atrophic with improvement in right-sided [...] Adrenals: Adrenal glands are unremarkable. Kidneys: Both [place] kidneys are atrophic. Interval improvement in right [place] kidney hydronephrosis since May 15, 2022. Status [...] Adrenals: Adrenal glands are unremarkable. Kidneys: Both [place] kidneys are atrophic. Interval improvement in right [place] kidney hydronephrosis since May 15, 2022. Status [...] aggressive osseous lesions. IMPRESSION IMPRESSION: 1. Both [place] kidneys are atrophic with improvement in right-sided hydronephrosis since May 15, 2022. 2. 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 No hydronephrosis. No discrete perinephric collection. 3. Partially imaged postsurgical changes related to prior liver transplant. 4. The bladder is decompressed, limiting evaluation. [facility] Radiology Study observation (narrative) [facility] CT Abdomen and Pelvis WO con trastOrdered By: Gera Lu on 06-27-2022 [facility] Work Phone: CBC AUTO DIFFon 06-18-2022 BASO # 0.0 103/ul Normal 0.0-0.1 [facility] Comment on above: Performed By: #### U RTPCR #### [facility] [address] [address] [address] Dwight Waters Basophils/100 WBC (Bld) 0.5 % Normal 0.2-2.0 [facility] Comment on above: Performed By: #### U RTPCR #### [facility] [address] [place], [place] [address] Dr. Dwight Waters EO # 0.2 103/ul Normal 0.0-0.7 [facility] Comment on above: Performed By: #### U RTPCR #### [facility] [address] [place] [address] Dr. Dwight Waters Eosinophils/100 WBC (Bld) 2.3 % Normal 0.9-7.0 [facility] Comment on above: Performed By: #### U RTPCR #### [facility] [address] [place] [address] Dr. Dwight Waters Erythrocyte distribution width (RBC) [Ratio] 12.9 % Normal 11.0-15.0 [facility] Comment on above: Performed By: #### U RTPCR #### [facility] [address] [place] [address] Dr. Dwight Waters Hematocrit (Bld) [Volume fraction] 41.2 % Critically low 42.0-54.0 [facility] Comment on above: Performed By: #### U RTPCR #### [facility] [address] [place] [address] Dr. Dwight Waters Hemoglobin (Bld) [Mass/Vol] 13.3 g/dL Critically low 14.0-18.0 [facility] Comment on above: Performed By: #### U RTPCR #### [facility] [address] [place] [address] Dr. Dwight Waters IG # 0.04 10e3/ul Critically high 0.00-0.03 [facility] Comment on above: Performed By: #### U RTPCR #### [facility] [address] [place] [address] Dr. Dwight Waters IG % 0.5 % Normal 0.0-0.5 [facility] Comment on above: Performed By: #### U RTPCR #### [facility] [address] [place] [address] Dr. Dwight Waters LYMPH # 2.0 103/ul Normal 1.2-3.8 [facility] Comment on above: Performed By: #### U RTPCR #### [facility] [address] [place] [address] Dr. Dwight Waters Lymphocytes/100 WBC (Bld) 22.9 % Normal 20.5-60.0 [facility] Comment on above: Performed By: #### U RTPCR #### [facility] [address] [place] [address] Dr. Dwight Waters MANUAL DIFF REQ NO Normal [facility] Comment on above: Performed By: #### U RTPCR #### [facility] [address] [place] [address] Dr. Dwight Waters MCH (RBC) [Entitic mass] 28.7 pg Normal 25.9-34.0 [facility] Comment on above: Performed By: #### U RTPCR #### [facility] [address] [place] [address] Dr. Dwight Waters MCHC (RBC) [Mass/Vol] 32.3 g/dL Normal 29.9-35.2 [facility] Comment on above: Performed By: #### U RTPCR #### [facility] [address] [place] [address] Dr. Dwight Waters MCV (RBC) [Entitic vol] 88.8 fL Normal 80.0-94.0 [facility] Comment on above: Performed By: #### U RTPCR #### [facility] [address] [place] [address] Dr. Dwight Waters MONO # 0.8 103/ul Normal 0.3-0.8 [facility] Comment on above: Performed By: #### U RTPCR #### [facility] [address] [place] [address] Dr. Dwight Waters Monocytes/100 WBC (Bld) 9.7 % Normal 1.7-12.0 [facility] Comment on above: Performed By: #### U RTPCR #### [facility] [address] [place] [address] Dr. Dwight Waters NEUT # 5.6 103/ul Normal 1.4-6.5 [facility] Comment on above: Performed By: #### U RTPCR #### [facility] [address] [place] [address] Dr. Dwight Waters Neutrophils/100 WBC (Bld) 64.1 % Normal 43.0-75.0 [facility] Comment on above: Performed By: #### U RTPCR #### [facility] [address] [place] [address] Dr. Dwight Watesr Platelet mean volume (Bld) [Entitic vol] 10.0 fL Normal 9.5-13.5 [facility] Comment on above: Performed By: #### U RTPCR #### [facility] [address] [place] [address] Dr. Dwight Waters PLT 270 103/ul Normal 150-450 [facility] Comment on above: Performed By: #### U RTPCR #### [facility] [address] [place] [address] Dr. Dwight Waters RBC 4.64 106/ul Critically low 4.70-6.10 [facility] Comment on above: Performed By: #### U RTPCR #### [facility] [address] [place] [address] Dr. Dwight Waters WBC 8.7 103/ul Normal 4.0-11.0 [facility] Comment on above: Performed By: #### U RTPCR #### [facility] [address] [place] [address] Dr. Dwight Waters CULTURE URINEon 06-18-2022 CULTURE URINE Culture Observations : NO GROWTH. Normal [facility] Comment on above: Performed By: #### U RTPCR #### [facility] [address] [place] [address] Dr. Dwight Waters [facility] SARS-CoV-2 (COVID-19) RNA ESTELITA+probe Ql (Unsp spec) Not detected Normal NOT DETECTED [facility] Comment on above: Result Comment: When [...] for this test is supported by the Transition Of Care Specialist of Health and Human Service's declaration that [...] used). Performed By: #### C BC #### [facility] [address] [place] [address] Dr. Dwight Waters ER URINE PROFILEon 2 Bilirubin Ql (U) Negative Normal NEGATIVE [facility] Comment on above: Performed By: #### U RTPCR #### [facility] [address] [place] [address] Dr. Dwight Waters Clarity (U) CLEAR Normal CLEAR [facility] Comment on above: Performed By: #### U RTPCR #### [facility] [address] [place] [address] Dr. Dwight Waters Color (U) YELLOW Normal YELLOW [facility] Comment on above: Performed By: #### U RTPCR #### [facility] [address] [place] [address] Dr. Dwight Waters ERUBERTHA A micrscopic examina tion will be performed if indicated. Normal [facility] Comment on above: Performed By: #### U RTPCR #### [facility] [address] [place] [address] Dr. Dwight Waters Glucose Ql (U) Negative Normal NEGATIVE [facility] Comment on above: Performed By: #### U RTPCR #### [facility] [address] [place] [address] Dr. Dwight Waters Hemoglobin Ql (U) LARGE Abnormal NEGATIVE [facility] Comment on above: Performed By: #### U RTPCR #### [facility] [address] [place] [address] Dr. Dwight Waters Ketones Ql (U) Negative Normal NEGATIVE [facility] Comment on above: Performed By: #### U RTPCR #### [facility] [address] [place] [address] Dr. Dwight Waters LEUKOCYTES TRACE Abnormal NEGATIVE [facility] Comment on above: Performed By: #### U RTPCR #### [facility] [address] [place] [address] Dr. Dwight Waters Nitrite Ql (U) Negative Normal NEGATIVE [facility] Comment on above: Performed By: #### U RTPCR #### [facility] [address] [place] [address] Dr. Dwight Waters pH (U) 6.0 [pH] Normal 5-9 [facility] Comment on above: Performed By: #### U RTPCR #### [facility] [address] [place] [address] Dr. Dwight Waters Protein (U) [Mass/Vol] 30 mg/dL Abnormal NEGATIVE/ TRACE [facility] Comment on above: Performed By: #### U RTPCR #### [facility] [address] [place] [address] Dr. Dwight Waters SPEC GRAVITY >=1.030 Abnormal 1.005-<=1.02 5 [facility] Comment on above: Performed By: #### U RTPCR #### [facility] [address] [place] [address] Dr. Dwight Waters UR MICRO IND INDICATED Normal [facility] Comment on above: Performed By: #### U RTPCR #### [facility] [address] [place] [address] Dr. Dwight Waters Urobilinogen Qn (U) 0.2 {Alyssa'U}/dL Normal 0.2 - 1. 0 [facility] Comment on above: Performed By: #### U RTPCR #### [facility] [address] [place] [address] Dr. Dwight Waters PROF 14(COMP METB)on 022 Albumin [Mass/Vol] 3.7 g/dL Normal 3.4-5.0 [facility] Comment on above: Performed By: #### C MP #### [facility] [address] [place] [address] Dr. Dwight Waters Albumin/Globulin [Mass ratio] 0.9 {ratio} Normal [facility] Comment on above: Performed By: #### C MP #### [facility] [address] [place] [address] Dr. Dwight Waters ALP [Catalytic activity/Vol] 80 U/L Normal 46-116 [facility] Comment on above: Performed By: #### C MP #### [facility] [address] [place] [address] Dr. Dwight Waters ALT [Catalytic activity/Vol] 24 U/L Normal 16-63 [facility] Comment on above: Performed By: #### C MP #### [facility] [address] [place] [address] Dr. Dwight Waters Anion gap [Moles/Vol] 12.9 mmol/L Normal [facility] Comment on above: Performed By: #### C MP #### [facility] [address] [place] [address] Dr. Dwight Waters AST [Catalytic activity/Vol] 17 U/L Normal 15-37 [facility] [place] Comment on above: Performed By: #### C MP #### [facility] [address] [place] [address] Dr. Dwight Waters Bilirubin [Mass/Vol] 0.8 mg/dL Normal 0.2-1.0 [facility] [place] Comment on above: Performed By: #### C MP #### [facility] [address] [place] [address] Dr. Dwight Waters Calcium [Mass/Vol] 9.4 mg/dL Normal 8.5-10.1 [facility] Comment on above: Performed By: #### C MP #### [facility] [address] [place] [address] Dr. Dwight Waters Chloride [Moles/Vol] 106 mmol/L Normal 98-107 [facility] Comment on above: Performed By: #### C MP #### [facility] [address] [place] [address] Dr. Dwight Waters CO2 [Moles/Vol] 25.3 mmol/L Normal 21.0-32.0 [facility] [place] Comment on above: Performed By: #### C MP #### [facility] [address] [address] [address] Dwight Waters Creatinine [Mass/Vol] 1.29 mg/dL Normal 0.70-1.30 [facility] Comment on above: Performed By: #### C MP #### [facility] [address] [address] [address] Dwight Waters EGFR-AF EMIRATI >60 Normal >=60 [facility] Comment on above: Performed By: #### C MP #### [facility] [address] [address] [address] Dwight Waters EGFR-NON AF EMIRATI 59 mL/min/1.73m2 Critically low >=60 [facility] Comment on above: Performed By: #### C MP #### [facility] [address] [place] [address] Dr. Dwight Waters Globulin (S) [Mass/Vol] 4.2 g/dL Normal [facility] [place] Comment on above: Performed By: #### C MP #### [facility] [address] [address] [address] Dwight Waters Glucose [Mass/Vol] 106 mg/dL Normal 74-106 [facility] Comment on above: Performed By: #### C MP #### [facility] [address] [address] [address] Dwight Waters Potassium [Moles/Vol] 4.2 mmol/L Normal 3.5-5.1 [facility] Comment on above: Performed By: #### C MP #### [facility] [address] [address] [address] Dwight Waters Protein [Mass/Vol] 7.9 g/dL Normal 6.4-8.2 [facility] Comment on above: Performed By: #### C MP #### [facility] [address] [address] [address] Dwight Waters Sodium [Moles/Vol] 140 mmol/L Normal 136-145 [facility] Comment on above: Performed By: #### C MP #### [facility] [address] [address] [address] Dwight Waters Urea nitrogen [Mass/Vol] 22.0 mg/dL Critically high 7.0-18.0 [facility] Comment on above: Performed By: #### C MP #### [facility] [address] [address] [address] Dwight Waters Urea nitrogen/Creatinine [Mass ratio] 17.1 mg/mg Normal [facility] Comment on above: Performed By: #### C MP #### [facility] [address] [place] [address] Dr. Dwight Waters URINE MICROSCOPIC ONLYon BACTERIA TRACE Abnormal NONE SEEN [facility] Comment on above: Performed By: #### U RTPCR #### [facility] [address] [place] [address] Dr. Dwight Waters Bacteria identified Cx Nom (U) INDICATED Normal [facility] Comment on above: Performed By: #### U RTPCR #### [facility] [address] [place] [address] Dr. Dwight Waters CAST NONE SEEN Normal NONE SEEN [facility] Comment on above: Performed By: #### U RTPCR #### [facility] [address] [place] [address] Dr. Dwight Waters Crystals LM Nom (Urine sed) NONE SEEN Normal NONE SEEN [facility] [place] Comment on above: Performed By: #### U RTPCR #### [facility] [address] [place] [address] Dr. Dwight Waters Epithelial cells LM Ql (Urine sed) NONE SEEN Normal NONE SEEN /RARE [facility] Comment on above: Performed By: #### U RTPCR #### [facility] [address] [place] [address] Dr. Dwight Waters MUCOUS NONE SEEN Normal NONE SEEN [facility] Comment on above: Performed By: #### U RTPCR #### [facility] [address] [place] [address] Dr. Dwight Waters RBC 5-10 Abnormal 0-2 [facility] Comment on above: Performed By: #### U RTPCR #### [facility] [address] [address] [address] Dwight Waters WBC 10-20 Abnormal NONE SEEN [facility] Comment on above: Performed By: #### U RTPCR #### [facility] [id number] Dwight Waters ALLOSCREEN RECIPIENT (POST T X PRA)on 06-13-2022 AB SPECIFICITY CLASS COMMENT Antibody Specificity testing performed by [employer]. cPRA calculation based on identification of HLA antibody specificities at MFI >2000 and/or presence of CREG antibodies. [facility] Comment on above: Some of the [...] [facility] Clinical Histocompatibility Laboratory. [facility] number: [id number]. CLIA number: [id number], Director: Carlito Merchant, PhD, D([facility]). ANTIBODY SPECIFICITY INTERPRETATION Detected [facility] CLASS I SPECIFICITIES Not detected [facility] CLASS II SPECIFICITIES Not detected [facility] HLA Ab (S) 0 % 0 [facility] EXTRA MICROon 06-13-2022 [facility] URINE CULTUREOrdered By: Jah Upton on 06-13-2022 Bacteria identified Cx Nom (Unsp spec) Growth [facility] Bacteria identified Cx Nom (Unsp spec) 10,000-50,000 CFU/mL Mixed skin shimon [facility] Comment on above: Multiple bacterial m orphotypes present. Suggest appropriate recollection if clinically indicated. [facility] CBC,PLATELETSon 06-12-2022 Erythrocyte distribution width (RBC) [Ratio] 13.0 % 10.9 - 14.3 % [facility] Hematocrit (Bld) [Volume fraction] 43.2 % 39.6 - 48.8 % [facility] Hemoglobin (Bld) [Mass/Vol] 13.9 g/dL 13.4 - 16.8 g/dL [facility] Interpretation and review of laboratory results Normal [facility] MCH (RBC) [Entitic mass] 28.7 pg 26.1 - 33.3 pg [facility] MCHC (RBC) [Mass/Vol] 32.2 g/dL 31.9 - 36.5 g/dL [facility] MCV (RBC) [Entitic vol] 89.1 fL 79.0 - 94.5 fL [facility] Platelet mean volume (Bld) [Entitic vol] 10.5 fL 8.7 - 12.3 fL [facility] Platelets (Bld) [#/Vol] 269 10*3/uL 146 - 337 K/uL [facility] RBC (Bld) [#/Vol] 4.85 10*6/uL [facility] WBC (Bld) [#/Vol] 7.68 10*3/uL 3.73 - 10. 10 K/uL [facility] CHEM 7 (LYTES,BUN,CREA,GLUC) on 06-12-2022 Anion gap [Moles/Vol] 14 mmol/L 7 - 17 mmol/L [facility] Chloride [Moles/Vol] 106 mmol/L 98 - 10 8 mmol/L [facility] CO2 [Moles/Vol] 25 mmol/L 21 - 31 mmol/L [facility] Creatinine [Mass/Vol] 1.26 mg/dL 0.70 - 1.30 mg/dL [facility] GFR/1.73 sq M.predicted CKD-EPI (S/P/Bld) [Vol rate/Area] 69 >=60 mL/min/1.73m 2 [facility] Comment on above: Reported eGFR is bas ed on the CKD-EPI 2020 equation using creatinine, age, and sex. Glucose [Mass/Vol] 83 mg/dL 70 - 99 mg/dL [facility] Osmolality Calc [Osmolality] 295 [facility] Potassium [Moles/Vol] 3.8 mmol/L 3.5 - 5.0 mmol/L [facility] Sodium [Moles/Vol] 141 mmol/L 135 - 145 mmol/L [facility] Urea nitrogen [Mass/Vol] 18 mg/dL 7 - 25 mg/dL [facility] Urea nitrogen/Creatinine [Mass ratio] 14 mg/mg [facility] GGTon 06-12-2022 Gamma glutamyl transferase [Catalytic activity/Vol] 20 U/L 8 - 64 U/L [facility] HEMOGLOBIN [id number] By: Link Roche on 06-12-2022 Average glucose Estimated from glycated hemoglobin (Bld) [Mass/Vol] 126 mg/dL [facility] HbA1c (Bld) [Mass fraction] 6.0 % High 4.7 - 5.6 % [facility] Interpretation and review of laboratory results Abnormal [facility] HEPATIC FUNCTION PANELon Albumin [Mass/Vol] 4.3 g/dL 3.5 - 5.0 g/dL [facility] ALP [Catalytic activity/Vol] 78 U/L 32 - 126 U/L [facility] ALT [Catalytic activity/Vol] 12 U/L 10 - 52 U/L [facility] AST [Catalytic activity/Vol] 16 U/L 10 - 39 U/L [facility] Bilirubin [Mass/Vol] 1.0 mg/dL <1.5 [facility] Bilirubin.direct [Mass/Vol] 0.2 mg/dL <0.3 [facility] Protein [Mass/Vol] 7.5 g/dL 6.4 - 8.3 g/dL [facility] No Panel Informationon 06-12 Interpretation and review of laboratory results Normal [facility] PTH INTACTOrdered By: Marli Lizarraga on 06-12-2022 Interpretation and review of laboratory results Abnormal [facility] Parathyrin.intact [Mass/Vol] 79.7 pg/mL High 14.0 - 72.0 pg/mL [facility] URINALYSIS REFLEX TO CULTURE PERFORMABLEon 06-12-2022 Appearance (U) Clear [facility] Bacteria LM Ql (Urine sed) ABSENT ABSENT [facility] Color (U) Yellow Yellow [facility] Epithelial cells.squamous LM Ql (Urine sed) 1/hpf = 1+ 1/hpf = 1+, 2-5/hpf = 2+, 0/hpf = 0+, ABSENT [facility] Glucose Test strip (U) [Mass/Vol] Negative Negative [facility] Interpretation and review of laboratory results Abnormal [facility] Ketones (U) [Mass/Vol] Trace Abnormal Negative [facility] Leukocyte esterase Test strip Ql (U) Small Abnormal Negative [facility] Nitrite Ql (U) Negative Negative [facility] pH (U) 5.5 [pH] 5.0 - 7.0 [facility] Protein (U) [Mass/Vol] 30 mg/dL Abnormal Negative [facility] RBC (U) [#/Vol] Trace Abnormal Negative [facility] RBC LM.HPF (Urine sed) [#/Area] 0-2 0 - 2 /HPF [facility] Specific gravity (U) [Rel density] 1.026 [facility] Urobilinogen (U) [Mass/Vol] 0.2 E.U./dL 0.2 E.U/dL, 1.0 E.U/dL [facility] WBC LM.HPF (Urine sed) [#/Area] 10-20 Abnormal 0 - 5 /HPF [facility] URINE PROTEIN/CREA RATIO, RA NDOMon 06-12-2022 Creatinine (24H U) [Mass/Vol] 231.68 mg/dL [facility] Protein Unsp time (U) [Mass/Vol] 49 mg/dL [facility] Protein/Creatinine (U) [Mass ratio] 0.211 mg/g [facility] FK506 (TACROLIMUS) WHOLE BLO ODon 06-09-2022 Tacrolimus (FK506), Blood 9.8 ng/mL Normal 2.0-20.0 [facility] Comment on above: Result Comment: Trou gh (immediately following transplant) 15.0 . Trough (steady state, 2 weeks or more after transplant): 3.0 - 8.0 . Performed by LC-MS/MS technology. Performed By: #### U RTPCR #### [facility] [address] [place] [address] Dr. Dwight Waters ALBUMINon 06-06-2022 Albumin [Mass/Vol] 3.8 g/dL Normal 3.4-5.0 [facility] [place] Comment on above: Performed By: #### C MP #### [facility] [address] [place] [address] Dr. Dwight Waters ALKALINE PHOSPHAon ALP [Catalytic activity/Vol] 82 U/L Normal 46-116 [facility] [place] Comment on above: Performed By: #### C MP #### [facility] [address] [place] [address] Dr. Dwight Waters BILIRUBIN CONJUGATED (DIRECT )on 06-06-2022 BILI, CONJUGATED 0.2 mg/dL Normal 0.0-0.2 [facility] [place] Comment on above: Performed By: #### C BC #### [facility] [address] [place] [address] Dr. Dwight Waters BILIRUBIN TOTALon 06-06-2022 Bilirubin [Mass/Vol] 1.0 mg/dL Normal 0.2-1.0 [facility] [place] Comment on above: Performed By: #### C BC #### [facility] [address] [place] [address] Dr. Dwight Waetrs BUNon 06-06-2022 Urea nitrogen [Mass/Vol] 18.0 mg/dL Normal 7.0-18.0 [facility] Comment on above: Performed By: #### C BC #### [facility] [address] [place] [address] Dr. Dwight Waters CALCIUMon 06-06-2022 Calcium [Mass/Vol] 9.4 mg/dL Normal 8.5-10.1 [facility] Comment on above: Performed By: #### C MP #### [facility] [address] [place] [address] Dr. Dwight Waters CBC AUTO DIFFon 06-06-2022 BASO # 0.1 103/ul Normal 0.0-0.1 [facility] [place] Comment on above: Performed By: #### U RTPCR #### [facility] [address] [address] [address] Dwight Waters Basophils/100 WBC (Bld) 0.8 % Normal 0.2-2.0 [facility] [place] Comment on above: Performed By: #### U RTPCR #### [facility] [address] [address] [address] Dwight Waters EO # 0.3 103/ul Normal 0.0-0.7 [facility] [place] Comment on above: Performed By: #### U RTPCR #### [facility] [address] [place] [address] Dr. Dwight Waters Eosinophils/100 WBC (Bld) 3.3 % Normal 0.9-7.0 [facility] [place] Comment on above: Performed By: #### U RTPCR #### [facility] [address] [place] [address] Dr. Dwight Waters Erythrocyte distribution width (RBC) [Ratio] 12.4 % Normal 11.0-15.0 [facility] [place] Comment on above: Performed By: #### U RTPCR #### [facility] [address] [place] [address] Dr. Dwight Waters Hematocrit (Bld) [Volume fraction] 45.1 % Normal 42.0-54.0 [facility] [place] Comment on above: Performed By: #### U RTPCR #### [facility] [address] [place] [address] Dr. Dwight Waters Hemoglobin (Bld) [Mass/Vol] 14.4 g/dL Normal 14.0-18.0 [facility] Comment on above: Performed By: #### U RTPCR #### [facility] [address] [place] [address] Dr. Dwight Waters IG # 0.01 10e3/ul Normal 0.00-0.03 [facility] [place] Comment on above: Performed By: #### U RTPCR #### [facility] [address] [place] [address] Dr. Dwight Waters IG % 0.1 % Normal 0.0-0.5 [facility] [place] Comment on above: Performed By: #### U RTPCR #### [facility] [address] [place] [address] Dr. Dwight Waters LYMPH # 2.2 103/ul Normal 1.2-3.8 [facility] Comment on above: Performed By: #### U RTPCR #### [facility] [address] [place] [address] Dr. Dwight Waters Lymphocytes/100 WBC (Bld) 30.0 % Normal 20.5-60.0 [facility] Comment on above: Performed By: #### U RTPCR #### [facility] [address] [place] [address] Dr. Dwight Waters MANUAL DIFF REQ NO Normal [facility] [place] Comment on above: Performed By: #### U RTPCR #### [facility] [address] [place] [address] Dr. Dwight Waters MCH (RBC) [Entitic mass] 28.2 pg Normal 25.9-34.0 [facility] [place] Comment on above: Performed By: #### U RTPCR #### [facility] [address] [place] [address] Dr. Dwight Waters MCHC (RBC) [Mass/Vol] 31.9 g/dL Normal 29.9-35.2 [facility] Comment on above: Performed By: #### U RTPCR #### [facility] [address] [place] [address] Dr. Dwight Waters MCV (RBC) [Entitic vol] 88.3 fL Normal 80.0-94.0 [facility] Comment on above: Performed By: #### U RTPCR #### [facility] [address] [place] [address] Dr. Dwight Waters MONO # 0.6 103/ul Normal 0.3-0.8 [facility] Comment on above: Performed By: #### U RTPCR #### [facility] [address] [address] [address] Dwight Waters Monocytes/100 WBC (Bld) 8.2 % Normal 1.7-12.0 [facility] Comment on above: Performed By: #### U RTPCR #### [facility] [address] [place] [address] Dr. Dwight Waters NEUT # 4.3 103/ul Normal 1.4-6.5 [facility] Comment on above: Performed By: #### U RTPCR #### [facility] [address] [place] [address] Dr. Dwight Waters Neutrophils/100 WBC (Bld) 57.6 % Normal 43.0-75.0 [facility] Comment on above: Performed By: #### U RTPCR #### [facility] [address] [place] [address] Dr. Dwight Waters Platelet mean volume (Bld) [Entitic vol] 9.7 fL Normal 9.5-13.5 [facility] Comment on above: Performed By: #### U RTPCR #### [facility] [address] [place] [address] Dr. Dwight Waters PLT 297 103/ul Normal 150-450 [facility] Comment on above: Performed By: #### U RTPCR #### [facility] [address] [place] [address] Dr. Dwight Waters RBC 5.11 106/ul Normal 4.70-6.10 [facility] Comment on above: Performed By: #### U RTPCR #### [facility] [address] [place] [address] Dr. Dwight Waters WBC 7.5 103/ul Normal 4.0-11.0 [facility] Comment on above: Performed By: #### U RTPCR #### [facility] [address] [place] [address] Dr. Dwight Waters CHLORIDEon 06-06-2022 Chloride [Moles/Vol] 107 mmol/L Normal 98-107 [facility] Comment on above: Performed By: #### C BC #### [facility] [address] [place] [address] Dr. Dwight Waters CO2on 06-06-2022 CO2 [Moles/Vol] 27.4 mmol/L Normal 21.0-32.0 [facility] [place] Comment on above: Performed By: #### C BC #### [facility] [address] [address] [address] Dwight Waters CREATININEon 06-06-2022 Creatinine [Mass/Vol] 1.20 mg/dL Normal 0.70-1.30 [facility] [place] Comment on above: Performed By: #### C BC #### [facility] [address] [address] [address] Dwight Waters EGFR-AF EMIRATI >60 Normal >=60 [facility] [place] Comment on above: Performed By: #### C BC #### [facility] [address] [address] [address] Dwight Waters EGFR-NON AF EMIRATI >60 Normal >=60 [facility] [place] Comment on above: Performed By: #### C BC #### [facility] [address] [address] [address] Dwight Waters GGTon 06-06-2022 Gamma glutamyl transferase [Catalytic activity/Vol] 29 U/L Normal 15-85 [facility] [place] Comment on above: Performed By: #### C BC #### [facility] [address] [address] [address] Dwight Waters GLUCOSE BLOODon 06-06-2022 Glucose [Mass/Vol] 112 mg/dL Critically high 74-[address] [facility] Comment on above: Performed By: #### C BC #### [facility] [address] [address] [address] Dwight Waters MAGNESIUMon 06-06-2022 Magnesium [Mass/Vol] 1.3 mg/dL Critically low 1.8-2.4 [facility] [place] Comment on above: Performed By: #### C MP #### [facility] [address] [address] [address] Dwight Waters NAon 06-06-2022 Sodium [Moles/Vol] 141 mmol/L Normal 136-145 [facility] [place] Comment on above: Performed By: #### C MP #### [facility] [address] [place] [address] Dr. Dwight Waters PHOSPHORUSon 06-06-2022 Phosphate [Mass/Vol] 3.1 mg/dL Normal 2.6-4.7 [facility] [place] Comment on above: Performed By: #### C MP #### [facility] [address] [place] [address] Dr. Dwight Waters POTASSIUMon 06-06-2022 Potassium [Moles/Vol] 4.3 mmol/L Normal 3.5-5.1 [facility] [place] Comment on above: Performed By: #### C BC #### [facility] [address] [place] [address] Dr. Dwight Waters SGOTon 06-06-2022 AST [Catalytic activity/Vol] 16 U/L Normal 15-37 [facility] [place] Comment on above: Performed By: #### C BC #### [facility] [address] [place] [address] Dr. Dw[facility] ALT [Catalytic activity/Vol] 50 U/L Normal 16-63 [facility] [place] Comment on above: Performed By: #### C BC #### [facility] [address] [place] [address] Dr. Dwight Waters Bacteria identified Cx Nom ( Bld)on 05-21-2022 Bacteria identified Cx Nom (Unsp spec) NO GROWTH DAY 5 OF 5 [facility] Results may be compr omised due to volume of BACT\ALERT bottle exceeding 10mLs . The optimal blood volume is 8-10 mls per aerobic/anaerobic blood culture bottle. [facility] CALCIUMon 05-20-2022 Calcium [Mass/Vol] 9.1 mg/dL 8.6 - 10. 5 mg/dL [facility] CBC,PLATELETSon 05-20-2022 Erythrocyte distribution width (RBC) [Ratio] 12.5 % 10.9 - 14.3 % [facility] Hematocrit (Bld) [Volume fraction] 37.1 % Low 39.6 - 48.8 % [facility] Hemoglobin (Bld) [Mass/Vol] 12.3 g/dL Low 13.4 - 16.8 g/dL [facility] Interpretation and review of laboratory results Abnormal [facility] MCH (RBC) [Entitic mass] 28.9 pg 26.1 - 33.3 pg [facility] MCHC (RBC) [Mass/Vol] 33.2 g/dL 31.9 - 36.5 g/dL [facility] MCV (RBC) [Entitic vol] 87.3 fL 79.0 - 94.5 fL [facility] Platelet mean volume (Bld) [Entitic vol] 9.9 fL 8.7 - 12.3 fL [facility] Platelets (Bld) [#/Vol] 234 10*3/uL 146 - 337 K/uL [facility] RBC (Bld) [#/Vol] 4.25 10*6/uL Low [facility] WBC (Bld) [#/Vol] 6.31 10*3/uL 3.73 - 10. 10 K/uL [facility] CHEM 7 (LYTES,BUN,CREA,GLUC) on 05-20-2022 Anion gap [Moles/Vol] 15 mmol/L 7 - 17 mmol/L [facility] Chloride [Moles/Vol] 111 mmol/L High 98 - 10 8 mmol/L [facility] CO2 [Moles/Vol] 22 mmol/L 21 - 31 mmol/L [facility] Creatinine [Mass/Vol] 1.10 mg/dL 0.70 - 1.30 mg/dL [facility] GFR/1.73 sq M.predicted CKD-EPI (S/P/Bld) [Vol rate/Area] 81 >=60 mL/min/1.73m 2 [facility] Comment on above: Reported eGFR is bas ed on the CKD-EPI 2020 equation using creatinine, age, and sex. Glucose [Mass/Vol] 92 mg/dL 70 - 99 mg/dL [facility] Interpretation and review of laboratory results Abnormal [facility] Osmolality Calc [Osmolality] 302 [facility] Potassium [Moles/Vol] 4.4 mmol/L 3.5 - 5.0 mmol/L [facility] Sodium [Moles/Vol] 144 mmol/L 135 - 145 mmol/L [facility] Urea nitrogen [Mass/Vol] 18 mg/dL 7 - 25 mg/dL [facility] Urea nitrogen/Creatinine [Mass ratio] 16 [facility] MAGN[facility]IUM[facility]-20-2022 Interpretation and review of laboratory results Abnormal [facility] Magnesium [Mass/Vol] 1.5 mg/dL Low 1.6 - 2 .6 mg/dL [facility] No Panel Informationon 05-20 Interpretation and review of laboratory results Normal [facility] PHOSPHATE, INORGANICon 05-20 Phosphate [Mass/Vol] 3.3 mg/dL 2.2 - 4 .6 mg/dL [facility] RF Unspecified body region V iews [...] projections of kidneys, ureters, and bladder. FINDINGS: Fluid Jet Cutter Operator images: Fluid Jet Cutter Operator radiographs of the abdomen reveal a [...] Contrast refluxes up the ureter to the [place] right kidney that is grossly normal appearing. [...] projections of kidneys, ureters, and bladder. FINDINGS: Fluid Jet Cutter Operator images: Fluid Jet Cutter Operator radiographs of the abdomen reveal a [...] Contrast refluxes up the ureter to the [place] right kidney that is grossly normal appearing. [...] I have reviewed and approved this report. [facility] Radiology Study observation (narrative) [facility] RF Unspecified body region V iews during surgeryOrdered By: Lizz Campos on 05-20-2022 [facility] Work Phone: CALCIUMon 05-19-2022 Calcium [Mass/Vol] 9.2 mg/dL 8.6 - 10. 5 mg/dL [facility] Calcium [Mass/Vol] 8.6 mg/dL 8.6 - 10. 5 mg/dL [facility] CBC,PLATELETSon 05-19-2022 Erythrocyte distribution width (RBC) [Ratio] 12.4 % 10.9 - 14.3 % [facility] Hematocrit (Bld) [Volume fraction] 38.0 % Low 39.6 - 48.8 % [facility] Hemoglobin (Bld) [Mass/Vol] 12.0 g/dL Low 13.4 - 16.8 g/dL [facility] Interpretation and review of laboratory results Abnormal [facility] MCH (RBC) [Entitic mass] 28.6 pg 26.1 - 33.3 pg [facility] MCHC (RBC) [Mass/Vol] 31.6 g/dL Low 31.9 - 36.5 g/dL [facility] MCV (RBC) [Entitic vol] 90.5 fL 79.0 - 94.5 fL [facility] Platelet mean volume (Bld) [Entitic vol] 9.7 fL 8.7 - 12.3 fL [facility] Platelets (Bld) [#/Vol] 199 10*3/uL 146 - 337 K/uL [facility] RBC (Bld) [#/Vol] 4.20 10*6/uL Low [facility] WBC (Bld) [#/Vol] 6.81 10*3/uL 3.73 - 10. 10 K/uL [facility] CHEM 7 (LYTES,BUN,CREA,GLUC) on 05-19-2022 Anion gap [Moles/Vol] 13 mmol/L 7 - 17 mmol/L [facility] Chloride [Moles/Vol] 105 mmol/L 98 - 10 8 mmol/L [facility] CO2 [Moles/Vol] 30 mmol/L 21 - 31 mmol/L [facility] Creatinine [Mass/Vol] 1.39 mg/dL High 0.70 - 1.30 mg/dL [facility] GFR/1.73 sq M.predicted CKD-EPI (S/P/Bld) [Vol rate/Area] 61 >=60 mL/min/1.73m 2 [facility] Comment on above: Reported eGFR is bas ed on the CKD-EPI 2020 equation using creatinine, age, and sex. Glucose [Mass/Vol] 121 mg/dL High 70 - 99 mg/dL [facility] Interpretation and review of laboratory results Abnormal [facility] Osmolality Calc [Osmolality] 303 [facility] Potassium [Moles/Vol] 3.8 mmol/L 3.5 - 5.0 mmol/L [facility] Sodium [Moles/Vol] 144 mmol/L 135 - 145 mmol/L [facility] Urea nitrogen [Mass/Vol] 18 mg/dL 7 - 25 mg/dL [facility] Urea nitrogen/Creatinine [Mass ratio] 13 mg/mg [facility] Anion gap [Moles/Vol] 15 mmol/L 7 - 17 mmol/L [facility] Chloride [Moles/Vol] 106 mmol/L 98 - 10 8 mmol/L [facility] CO2 [Moles/Vol] 24 mmol/L 21 - 31 mmol/L [facility] Creatinine [Mass/Vol] 1.46 mg/dL High 0.70 - 1.30 mg/dL [facility] GFR/1.73 sq M.predicted CKD-EPI (S/P/Bld) [Vol rate/Area] 58 Low >=60 mL/min/1.73m 2 [facility] Comment on above: Reported eGFR is bas ed on the CKD-EPI 2020 equation using creatinine, age, and sex. Glucose [Mass/Vol] 103 mg/dL High 70 - 99 mg/dL [facility] Interpretation and review of laboratory results Abnormal [facility] Osmolality Calc [Osmolality] 298 [facility] Potassium [Moles/Vol] 3.9 mmol/L 3.5 - 5.0 mmol/L [facility] Sodium [Moles/Vol] 141 mmol/L 135 - 145 mmol/L [facility] Urea nitrogen [Mass/Vol] 21 mg/dL 7 - 25 mg/dL [facility] Urea nitrogen/Creatinine [Mass ratio] 14 mg/mg [facility] MAGNESIUMon 05-19-2022 Magnesium [Mass/Vol] 2.0 mg/dL 1.6 - 2 .6 mg/dL [facility] Magnesium [Mass/Vol] 1.7 mg/dL 1.6 - 2 .6 mg/dL [facility] No Panel Informationon 05-19 Interpretation and review of laboratory results Normal [facility] Interpretation and review of laboratory results Normal [facility] PHOSPHATE, INORGANICon 05-19 Phosphate [Mass/Vol] 3.0 mg/dL 2.2 - 4 .6 mg/dL [facility] Phosphate [Mass/Vol] 2.7 mg/dL 2.2 - 4 .6 mg/dL [facility] CALCIUMon 05-18-2022 Calcium [Mass/Vol] 9.1 mg/dL 8.6 - 10. 5 mg/dL [facility] CBC,PLATELETSon 05-18-2022 Erythrocyte distribution width (RBC) [Ratio] 12.5 % 10.9 - 14.3 % [facility] Hematocrit (Bld) [Volume fraction] 37.3 % Low 39.6 - 48.8 % [facility] Hemoglobin (Bld) [Mass/Vol] 11.9 g/dL Low 13.4 - 16.8 g/dL [facility] Interpretation and review of laboratory results Abnormal [facility] MCH (RBC) [Entitic mass] 28.9 pg 26.1 - 33.3 pg [facility] MCHC (RBC) [Mass/Vol] 31.9 g/dL 31.9 - 36.5 g/dL [facility] MCV (RBC) [Entitic vol] 90.5 fL 79.0 - 94.5 fL [facility] Platelet mean volume (Bld) [Entitic vol] 10.1 fL 8.7 - 12.3 fL [facility] Platelets (Bld) [#/Vol] 189 10*3/uL 146 - 337 K/uL [facility] RBC (Bld) [#/Vol] 4.12 10*6/uL Low [facility] WBC (Bld) [#/Vol] 10.19 10*3/uL High 3.73 - 10 .10 K/uL [facility] CHEM 7 (LYTES,BUN,CREA,GLUC) on 05-18-2022 Anion gap [Moles/Vol] 13 mmol/L 7 - 17 mmol/L [facility] Chloride [Moles/Vol] 102 mmol/L 98 - 10 8 mmol/L [facility] CO2 [Moles/Vol] 26 mmol/L 21 - 31 mmol/L [facility] Creatinine [Mass/Vol] 1.91 mg/dL High 0.70 - 1.30 mg/dL [facility] GFR/1.73 sq M.predicted CKD-EPI (S/P/Bld) [Vol rate/Area] 42 Low >=60 mL/min/1.73m 2 [facility] Comment on above: Reported eGFR is bas ed on the CKD-EPI 2020 equation using creatinine, age, and sex. Glucose [Mass/Vol] 158 mg/dL High 70 - 99 mg/dL [facility] Osmolality Calc [Osmolality] 297 [facility] Potassium [Moles/Vol] 4.0 mmol/L 3.5 - 5.0 mmol/L [facility] Sodium [Moles/Vol] 137 mmol/L 135 - 145 mmol/L [facility] Urea nitrogen [Mass/Vol] 30 mg/dL High 7 - 25 mg/dL [facility] Urea nitrogen/Creatinine [Mass ratio] 16 mg/mg [facility] CHEM 7 (LYTES,BUN,CREA,GLUC) Ordered By: Tamiko Thapa on 05-18-2022 Anion gap [Moles/Vol] 13 mmol/L 7 - 17 mmol/L [facility] Chloride [Moles/Vol] 104 mmol/L 98 - 10 8 mmol/L [facility] CO2 [Moles/Vol] 26 mmol/L 21 - 31 mmol/L [facility] Creatinine [Mass/Vol] 2.96 mg/dL High 0.70 - 1.30 mg/dL [facility] GFR/1.73 sq M.predicted CKD-EPI (S/P/Bld) [Vol rate/Area] 25 Low >=60 mL/min/1.73m 2 [facility] Comment on above: Reported eGFR is bas ed on the CKD-EPI 2020 equation using creatinine, age, and sex. Glucose [Mass/Vol] 136 mg/dL High 70 - 99 mg/dL [facility] Interpretation and review of laboratory results Abnormal [facility] Osmolality Calc [Osmolality] 304 [facility] Potassium [Moles/Vol] 4.2 mmol/L 3.5 - 5.0 mmol/L [facility] Sodium [Moles/Vol] 139 mmol/L 135 - 145 mmol/L [facility] Urea nitrogen [Mass/Vol] 41 mg/dL High 7 - 25 mg/dL [facility] Urea nitrogen/Creatinine [Mass ratio] 14 mg/mg [facility] MAGNESIUMon 05-18-2022 Magnesium [Mass/Vol] 2.2 mg/dL 1.6 - 2 .6 mg/dL [facility] Interpretation and review of laboratory results Normal [facility] Magnesium [Mass/Vol] 1.7 mg/dL 1.6 - 2 .6 mg/dL [facility] No Panel Informationon 05-18 Interpretation and review of laboratory results Abnormal [facility] Interpretation and review of laboratory results Normal [facility] PHOSPHATE, INORGANICon 05-18 Phosphate [Mass/Vol] 2.0 mg/dL Low 2.2 - 4 .6 mg/dL [facility] Interpretation and review of laboratory results Normal [facility] Phosphate [Mass/Vol] 2.8 mg/dL 2.2 - 4 .6 mg/dL [facility] PT,INR,PTTon 05-18-2022 aPTT Coag (PPP) [Time] 31.0 s [facility] INR Coag (Bld) [Relative time] 1.1 {INR} [facility] Interpretation and review of laboratory results Abnormal [facility] PT Coag (PPP) [Time] 14.4 s High [facility] URINE CULTUREOrdered By: Sylvia Campos on 05-18-2022 Bacteria identified Cx Nom (Unsp spec) No Growth [facility] CBC,PLATELETSon 05-17-2022 Erythrocyte distribution width (RBC) [Ratio] 12.8 % 10.9 - 14.3 % [facility] Hematocrit (Bld) [Volume fraction] 42.8 % 39.6 - 48.8 % [facility] Hemoglobin (Bld) [Mass/Vol] 13.3 g/dL Low 13.4 - 16.8 g/dL [facility] Interpretation and review of laboratory results Abnormal [facility] MCH (RBC) [Entitic mass] 28.9 pg 26.1 - 33.3 pg [facility] MCHC (RBC) [Mass/Vol] 31.1 g/dL Low 31.9 - 36.5 g/dL [facility] MCV (RBC) [Entitic vol] 92.8 fL 79.0 - 94.5 fL [facility] Platelet mean volume (Bld) [Entitic vol] 10.3 fL 8.7 - 12.3 fL [facility] Platelets (Bld) [#/Vol] 188 10*3/uL 146 - 337 K/uL [facility] RBC (Bld) [#/Vol] 4.61 10*6/uL [facility] WBC (Bld) [#/Vol] 16.61 10*3/uL High 3.73 - 10 .10 K/uL [facility] CHEM 7 (LYTES,BUN,CREA,GLUC) Ordered By: Kaylah Mc on 05-17-2022 Anion gap [Moles/Vol] 15 mmol/L 7 - 17 mmol/L [facility] Chloride [Moles/Vol] 103 mmol/L 98 - 10 8 mmol/L [facility] CO2 [Moles/Vol] 23 mmol/L 21 - 31 mmol/L [facility] Creatinine [Mass/Vol] 5.95 mg/dL High 0.70 - 1.30 mg/dL [facility] GFR/1.73 sq M.predicted CKD-EPI (S/P/Bld) [Vol rate/Area] 11 Low >=60 mL/min/1.73m 2 [facility] Comment on above: Reported eGFR is bas ed on the CKD-EPI 2020 equation using creatinine, age, and sex. Glucose [Mass/Vol] 165 mg/dL High 70 - 99 mg/dL [facility] Interpretation and review of laboratory results Abnormal [facility] Osmolality Calc [Osmolality] 305 [facility] Potassium [Moles/Vol] 4.6 mmol/L 3.5 - 5.0 mmol/L [facility] Sodium [Moles/Vol] 136 mmol/L 135 - 145 mmol/L [facility] Urea nitrogen [Mass/Vol] 52 mg/dL High 7 - 25 mg/dL [facility] Urea nitrogen/Creatinine [Mass ratio] 9 mg/mg [facility] CHEM 7 (LYTES,BUN,CREA,GLUC) Ordered By: Kehinde Gutierrez on 05-17-2022 Anion gap [Moles/Vol] 24 mmol/L High 7 - 17 mmol/L [facility] Chloride [Moles/Vol] 100 mmol/L 98 - 10 8 mmol/L [facility] CO2 [Moles/Vol] 16 mmol/L Low 21 - 31 mmol/L [facility] Creatinine [Mass/Vol] 8.08 mg/dL High 0.70 - 1.30 mg/dL [facility] GFR/1.73 sq M.predicted CKD-EPI (S/P/Bld) [Vol rate/Area] 7 Low >=60 mL/min/1.73m 2 [facility] Comment on above: Reported eGFR is bas ed on the CKD-EPI 2020 equation using creatinine, age, and sex. Glucose [Mass/Vol] 164 mg/dL High 70 - 99 mg/dL [facility] Interpretation and review of laboratory results Abnormal [facility] Osmolality Calc [Osmolality] 305 [facility] Potassium [Moles/Vol] 5.0 mmol/L 3.5 - 5.0 mmol/L [facility] Sodium [Moles/Vol] 135 mmol/L 135 - 145 mmol/L [facility] Urea nitrogen [Mass/Vol] 56 mg/dL High 7 - 25 mg/dL [facility] Urea nitrogen/Creatinine [Mass ratio] 7 mg/mg [facility] LAVENDER TOP TUBEon 05-17-20 [facility] MAGNESIUMon 05-17-2022 Interpretation and review of laboratory results Normal [facility] Magnesium [Mass/Vol] 1.8 mg/dL 1.6 - 2 .6 mg/dL [facility] Interpretation and review of laboratory results Normal [facility] Magnesium [Mass/Vol] 1.6 mg/dL 1.6 - 2 .6 mg/dL [facility] No Panel Informationon 05-17 [facility] PHOSPHATE, INORGANICon 05-17 Interpretation and review of laboratory results Abnormal [facility] Phosphate [Mass/Vol] 4.9 mg/dL High 2.2 - 4 .6 mg/dL [facility] PT,INR,PTTon 05-17-2022 aPTT Coag (PPP) [Time] 33.0 s [facility] INR Coag (Bld) [Relative time] 1.3 {INR} High [facility] Interpretation and review of laboratory results Abnormal [facility] PT Coag (PPP) [Time] 15.7 s High [facility] Port[facility] Viewson IMPRESSION: No acute findings. OLOGY EXAM: XR CHEST KIERAN BLE, 05/17/2022 14:39 PM COMPARISON: May 15, 2022 CLINICAL INDICATIONS: hypoxia RELEVANT CLINICAL HISTORY: FINDINGS: (Adequate technique) Implanted Devices: None Thorax: Lungs are clear. No pneumothorax or effusion. Stable cardiomegaly. RADIOLOGY David Sanz DO - 05/17/2022 EXAM: XR CHEST PORTABLE, 05/17/2022 14:39 PM COMPARISON: May 15, 2022 CLINICAL INDICATIONS: hypoxia RELEVANT CLINICAL HISTORY: FINDINGS: (Adequate technique) Implanted Devices: None Thorax: Lungs are clear. No pneumothorax or effusion. Stable cardiomegaly. IMPRESSION IMPRESSION: No acute findings. [facility] Radiology Study observation (narrative) [facility] Portable XR Chest ViewsOrder ed By: David Sanz on 05-17-2022 [facility] Work Phone: URINALYSISOrdered By: Michael patel Ma on 05-17-2022 Appearance (U) Cloudy Abnormal Clear [facility] Comment on above: Results may be inacc urate due to color interference. Clinical correlation recommended. Bacteria LM Ql (Urine sed) ABSENT ABSENT [facility] Color (U) Red Abnormal Yellow [facility] Comment on above: Results may be inacc urate due to color interference. Clinical correlation recommended. Epithelial cells.squamous LM Ql (Urine sed) ABSENT 1/hpf = 1+, 2-5/hpf = 2+, 0/hpf = 0+, ABSENT [facility] Glucose Test strip (U) [Mass/Vol] Negative Negative [facility] Comment on above: Results may be inacc urate due to color interference. Clinical correlation recommended. Interpretation and review of laboratory results Abnormal [facility] Ketones (U) [Mass/Vol] Trace Abnormal Negative [facility] Comment on above: Results may be inacc urate due to color interference. Clinical correlation recommended. Leukocyte esterase Test strip Ql (U) Large Abnormal Negative [facility] Comment on above: Results may be inacc urate due to color interference. Clinical correlation recommended. Nitrite Ql (U) Negative Negative [facility] Comment on above: Results may be inacc urate due to color interference. Clinical correlation recommended. pH (U) 5.0 [pH] 5.0 - 7.0 [facility] Comment on above: Results may be inacc urate due to color interference. Clinical correlation recommended. Protein (U) [Mass/Vol] mg/dL Abnormal Negative [facility] Comment on above: Results may be inacc urate due to color interference. Clinical correlation recommended. RBC (U) [#/Vol] Large Abnormal Negative [facility] Comment on above: Results may be inacc urate due to color interference. Clinical correlation recommended. RBC LM.HPF (Urine sed) [#/Area] /[HPF] Abnormal 0 - 2 /HPF [facility] Specific gravity (U) [Rel density] 1.016 [facility] Comment on above: Results may be inacc urate due to color interference. Clinical correlation recommended. Urobilinogen (U) [Mass/Vol] 0.2 E.U./dL 0.2 E.U/dL, 1.0 E.U/dL [facility] Comment on above: Results may be inacc urate due to color interference. Clinical correlation recommended. WBC LM.HPF (Urine sed) [#/Area] /[HPF] Abnormal 0 - 5 /HPF [facility] URINE CULTUREOrdered By: Tyler Tiwari on 05-17-2022 Bacteria identified Cx Nom (Unsp spec) No Growth [facility] CBC,PLATELETSon 05-16-2022 Erythrocyte distribution width (RBC) [Ratio] 12.9 % 10.9 - 14.3 % [facility] Hematocrit (Bld) [Volume fraction] 46.5 % 39.6 - 48.8 % [facility] Hemoglobin (Bld) [Mass/Vol] 14.7 g/dL 13.4 - 16.8 g/dL [facility] Interpretation and review of laboratory results Abnormal [facility] MCH (RBC) [Entitic mass] 28.3 pg 26.1 - 33.3 pg [facility] MCHC (RBC) [Mass/Vol] 31.6 g/dL Low 31.9 - 36.5 g/dL [facility] MCV (RBC) [Entitic vol] 89.6 fL 79.0 - 94.5 fL [facility] Platelet mean volume (Bld) [Entitic vol] 10.3 fL 8.7 - 12.3 fL [facility] Platelets (Bld) [#/Vol] 188 10*3/uL 146 - 337 K/uL [facility] RBC (Bld) [#/Vol] 5.19 10*6/uL [facility] WBC (Bld) [#/Vol] 12.55 10*3/uL High 3.73 - 10 .10 K/uL [facility] CHEM 7 (LYTES,BUN,CREA,GLUC) Ordered By: Alma Pena on 05-16-2022 Anion gap [Moles/Vol] 14 mmol/L 7 - 17 mmol/L [facility] Chloride [Moles/Vol] 103 mmol/L 98 - 10 8 mmol/L [facility] CO2 [Moles/Vol] 22 mmol/L 21 - 31 mmol/L [facility] Creatinine [Mass/Vol] 6.09 mg/dL High 0.70 - 1.30 mg/dL [facility] GFR/1.73 sq M.predicted CKD-EPI (S/P/Bld) [Vol rate/Area] 10 Low >=60 mL/min/1.73m 2 [facility] Comment on above: Reported eGFR is bas ed on the CKD-EPI 2020 equation using creatinine, age, and sex. Glucose [Mass/Vol] 134 mg/dL High 70 - 99 mg/dL [facility] Interpretation and review of laboratory results Abnormal [facility] Osmolality Calc [Osmolality] 298 [facility] Potassium [Moles/Vol] 4.9 mmol/L 3.5 - 5.0 mmol/L [facility] Sodium [Moles/Vol] 134 mmol/L Low 135 - 145 mmol/L [facility] Comment on above: Results inconsistent with previous results Urea nitrogen [Mass/Vol] 49 mg/dL High 7 - 25 mg/dL [facility] Urea nitrogen/Creatinine [Mass ratio] 8 mg/mg [facility] CHEM 7 (LYTES,BUN,CREA,GLUC) on 05-16-2022 Anion gap [Moles/Vol] 17 mmol/L 7 - 17 mmol/L [facility] Chloride [Moles/Vol] 106 mmol/L 98 - 10 8 mmol/L [facility] CO2 [Moles/Vol] 22 mmol/L 21 - 31 mmol/L [facility] Creatinine [Mass/Vol] 5.23 mg/dL High 0.70 - 1.30 mg/dL [facility] GFR/1.73 sq M.predicted CKD-EPI (S/P/Bld) [Vol rate/Area] 13 Low >=60 mL/min/1.73m 2 [facility] Comment on above: Reported eGFR is bas ed on the CKD-EPI 2020 equation using creatinine, age, and sex. Glucose [Mass/Vol] 116 mg/dL High 70 - 99 mg/dL [facility] Interpretation and review of laboratory results Abnormal [facility] Osmolality Calc [Osmolality] 305 [facility] Potassium [Moles/Vol] 4.6 mmol/L 3.5 - 5.0 mmol/L [facility] Sodium [Moles/Vol] 140 mmol/L 135 - 145 mmol/L [facility] Urea nitrogen [Mass/Vol] 42 mg/dL High 7 - 25 mg/dL [facility] Urea nitrogen/Creatinine [Mass ratio] 8 mg/mg [facility] EXTRA MICROon 05-16-2022 [facility] LT BLUE TOP TUBEon 2 [facility] LYTES (NA, K, CL) - URINE - RANDOMon 05-16-2022 Chloride (24H U) [Moles/Vol] 68 mmol/L [facility] Potassium (24H U) [Moles/Vol] 36.7 mmol/L [facility] Sodium (24H U) [Moles/Vol] 55 mmol/L [facility] The reference range has not been established for random urine specimens. The test result should be integrated into the clinical context for interpretation. [facility] MAGNESIUMon 05-16-2022 Interpretation and review of laboratory results Normal [facility] Magnesium [Mass/Vol] 1.7 mg/dL 1.6 - 2 .6 mg/dL [facility] NOVEL CORONAVIRUS PCROrdered By: Edson Candelario on 05-16-2022 SARS-CoV-2 (COVID-19) RNA ESTELITA+probe Ql (Unsp spec) Not detected NOT DETECTED [facility] Comment on above: [facility] Negative results do [...] use authorization for use by authorized laboratories. [facility] No Panel Informationon 05-16 [facility] OSMOLALITY, URINEon 05-16-20 Interpretation and review of laboratory results Normal [facility] Osmolality (U) [Osmolality] 320 mosm/kg [facility] The reference range has not been established for random urine specimens. The test result should be integrated into the clinical context for interpretation. [facility] PROCALCITONINon 05-16-2022 Interpretation and review of laboratory results Normal [facility] Procalcitonin [Mass/Vol] 0.18 ng/mL <0.50 [facility] Comment on above: Procalcitonin is an [...] and trend procalcitonin in various clinical settings. [email or web address] Two common cutoffs associated with bacterial infections are as follows. Respiratory tract infections: >0.25 ng/mL Sepsis/septic shock: >0.5 ng/mL Procalcitonin should not be used alone as a diagnostic tool, however. All procalcitonin results should be interpreted in association with the patients clinical condition and all laboratory findings. [facility] PT,INR,PTTon 05-16-2022 aPTT Coag (PPP) [Time] 30.3 s [facility] INR Coag (Bld) [Relative time] 1.1 {INR} [facility] Interpretation and review of laboratory results Normal [facility] PT Coag (PPP) [Time] 14.1 s [facility] SARS-CoV-2 (COVID-19) RNA NA A+probe Ql (Unsp spec)Ordered By: Edson Candelario on 05-16-2022 Interpretation and review of laboratory results Normal [facility] TACROLIMUS LEVEL, TROUGH ([place] E DRUG LEVEL)Ordered By: Mariama Nick on 05-16-2022 Interpretation and review of laboratory results Normal [facility] Tacrolimus (Bld) [Mass/Vol] 4.1 ng/mL Bone Marrow Transplant: 4.0-12.0, Therapeutic: 5.0-15.0 [facility] Method performed is a chemiluminescent microparticle immunoasssay on the [employer] i2000. The range is based on experience at [facility] and users should be aware that target concentrations vary widely depending on concomitant therapy, time post-transplant, and desired degree of immunosuppression. [facility] URINE PROTEIN/CREA RATIO, RA Smiley 05-16-2022 Creatinine (24H U) [Mass/Vol] 59.82 mg/dL [facility] Protein Unsp time (U) [Mass/Vol] 111 mg/dL [facility] Protein/Creatinine (U) [Mass ratio] 1.856 mg/g [facility] US for transplanted kidney l imitedon [...] appearing vascular flow in the transplant kidney. [facility] Radiology Study observation (narrative) [facility] US for transplanted kidney l imitedOrdered By: Rosendo Matute on 05-16-2022 [facility] Work Phone: CBC AND ELECTRONIC DIFFon Basophils (Bld) [#/Vol] 10*3/uL 0.00 - 0.09 K/uL [facility] Basophils/100 WBC (Bld) 0.2 % [facility] Differential cell count method Nom (Bld) Electronic Differential [facility] Eosinophils (Bld) [#/Vol] 10*3/uL 0.00 - 0.48 K/uL [facility] Eosinophils/100 WBC (Bld) 0.0 % [facility] Erythrocyte distribution width (RBC) [Ratio] 12.8 % 10.9 - 14.3 % [facility] Hematocrit (Bld) [Volume fraction] 46.0 % 39.6 - 48.8 % [facility] Hemoglobin (Bld) [Mass/Vol] 14.6 g/dL 13.4 - 16.8 g/dL [facility] Immature granulocytes (Bld) [#/Vol] 0.07 10*3/uL <=0.08 [facility] Immature granulocytes/100 WBC (Bld) 0.4 % [facility] Interpretation and review of laboratory results Abnormal [facility] Lymphocytes (Bld) [#/Vol] 1.49 10*3/uL 0.83 - 3.57 K/uL [facility] Lymphocytes/100 WBC (Bld) 9.4 % [facility] MCH (RBC) [Entitic mass] 28.2 pg 26.1 - 33.3 pg [facility] MCHC (RBC) [Mass/Vol] 31.7 g/dL Low 31.9 - 36.5 g/dL [facility] MCV (RBC) [Entitic vol] 89.0 fL 79.0 - 94.5 fL [facility] Monocytes (Bld) [#/Vol] 1.45 10*3/uL High 0.24 - 0.93 K/uL [facility] Monocytes/100 WBC (Bld) 9.2 % [facility] Neutrophils (Bld) [#/Vol] 12.77 10*3/uL High 1.57 - 6.19 K/uL [facility] Nucleated RBC/100 WBC (Bld) [Ratio] 0.0 % <=0.2 /100 WBC [facility] Platelet mean volume (Bld) [Entitic vol] 9.9 fL 8.7 - 12.3 fL [facility] Platelets (Bld) [#/Vol] 250 10*3/uL 146 - 337 K/uL [facility] RBC (Bld) [#/Vol] 5.17 10*6/uL [facility] Segmented neutrophils/100 WBC (Bld) 80.8 % [facility] WBC (Bld) [#/Vol] 15.81 10*3/uL High 3.73 - 10 .10 K/uL [facility] CBC AUTO DIFFon 05-15-2022 BASO # 0.0 103/ul Normal 0.0-0.1 [facility] Comment on above: Performed By: #### C BC #### [facility] [address] [address] [address] Dwight Waters Basophils/100 WBC (Bld) 0.3 % Normal 0.2-2.0 [facility] Comment on above: Performed By: #### C BC #### [facility] [address] [address] [address] Dwight Waters EO # 0.1 103/ul Normal 0.0-0.7 [facility] Comment on above: Performed By: #### C BC #### [facility] [address] [address] [address] Dwight Waters Eosinophils/100 WBC (Bld) 0.8 % Critically low 0.9-7.0 [facility] Comment on above: Performed By: #### C BC #### [facility] [address] [address] [address] Dwight Waters Erythrocyte distribution width (RBC) [Ratio] 12.7 % Normal 11.0-15.0 [facility] Comment on above: Performed By: #### C BC #### [facility] [address] [address] [address] Dwight Waters Hematocrit (Bld) [Volume fraction] 43.5 % Normal 42.0-54.0 [facility] Comment on above: Performed By: #### C BC #### [facility] [address] [address] [address] Dwight Waters Hemoglobin (Bld) [Mass/Vol] 14.4 g/dL Normal 14.0-18.0 [facility] Comment on above: Performed By: #### C BC #### [facility] [address] [address] [address] Dwight Waters IG # 0.02 10e3/ul Normal 0.00-0.03 [facility] Comment on above: Performed By: #### C BC #### [facility] [address] [place] [address] Dr. Dwight Waters IG % 0.2 % Normal 0.0-0.5 [facility] Comment on above: Performed By: #### C BC #### [facility] [address] [place] [address] Dr. Dwight Waters LYMPH # 1.5 103/ul Normal 1.2-3.8 [facility] Comment on above: Performed By: #### C BC #### [facility] [address] [place] [address] Dr. Dwight Waters Lymphocytes/100 WBC (Bld) 12.5 % Critically low 20.5-60.0 [facility] Comment on above: Performed By: #### C BC #### [facility] [address] [place] [address] Dr. Dwight Waters MANUAL DIFF REQ NO Normal [facility] Comment on above: Performed By: #### C BC #### [facility] [address] [place] [address] Dr. Dwight Waters MCH (RBC) [Entitic mass] 28.6 pg Normal 25.9-34.0 [facility] Comment on above: Performed By: #### C BC #### [facility] [address] [place] [address] Dr. Dwight Waters MCHC (RBC) [Mass/Vol] 33.1 g/dL Normal 29.9-35.2 [facility] Comment on above: Performed By: #### C BC #### [facility] [address] [place] [address] Dr. Dwight Waters MCV (RBC) [Entitic vol] 86.3 fL Normal 80.0-94.0 [facility] Comment on above: Performed By: #### C BC #### [facility] [address] [place] [address] Dr. Dwight Waters MONO # 1.0 103/ul Critically high 0.3-0.8 [facility] Comment on above: Performed By: #### C BC #### [facility] [address] [address] [address] Dwight Waters Monocytes/100 WBC (Bld) 8.2 % Normal 1.7-12.0 [facility] Comment on above: Performed By: #### C BC #### [facility] [address] [address] [address] Dwight Waters NEUT # 9.1 103/ul Critically high 1.4-6.5 [facility] Comment on above: Performed By: #### C BC #### [facility] [address] [place] [address] Dr. Dwight Waters Neutrophils/100 WBC (Bld) 78.0 % Critically high 43.0-75.0 [facility] Comment on above: Performed By: #### C BC #### [facility] [address] [place] [address] Dr. Dwight Waters Platelet mean volume (Bld) [Entitic vol] 9.8 fL Normal 9.5-13.5 [facility] Comment on above: Performed By: #### C BC #### [facility] [address] [place] [address] Dr. Dwight Waters PLT 251 103/ul Normal 150-450 [facility] Comment on above: Performed By: #### C BC #### [facility] [address] [place] [address] Dr. Dwight Waters RBC 5.04 106/ul Normal 4.70-6.10 [facility] Comment on above: Performed By: #### C BC #### [facility] [address] [place] [address] Dr. Dwight Waters WBC 11.6 103/ul Critically high 4.0-11.0 [facility] Comment on above: Performed By: #### C BC #### [facility] [address] [place] [address] Dr. Dwight Waters CHEM 6 (LYTES, BUN CREA)on 0 05-15-2022 Anion gap [Moles/Vol] 12 mmol/L 7 - 17 mmol/L [facility] Chloride [Moles/Vol] 105 mmol/L 98 - 10 8 mmol/L [facility] CO2 [Moles/Vol] 26 mmol/L 21 - 31 mmol/L [facility] Creatinine [Mass/Vol] 2.85 mg/dL High 0.70 - 1.30 mg/dL [facility] GFR/1.73 sq M.predicted CKD-EPI (S/P/Bld) [Vol rate/Area] 26 Low >=60 mL/min/1.73m 2 [facility] Comment on above: Reported eGFR is bas ed on the CKD-EPI 2020 equation using creatinine, age, and sex. Potassium [Moles/Vol] 4.6 mmol/L 3.5 - 5.0 mmol/L [facility] Sodium [Moles/Vol] 138 mmol/L 135 - 145 mmol/L [facility] Urea nitrogen [Mass/Vol] 32 mg/dL High 7 - 25 mg/dL [facility] Urea nitrogen/Creatinine [Mass ratio] 11 mg[facility]LVIS WO CONon 05-15 CT [...] transplanted kidney with moderate right-sided hydronephrosis. Atrophic [place] kidneys with moderate right-sided hydronephrosis. Multiple nonobstructive [...] transplanted kidney with moderate right-sided hydronephrosis. Atrophic [place] kidneys with moderate right-sided hydronephrosis. Multiple nonobstructive right renal calculi measuring up to 8 mm. FOLLOW-UP: Follow-up as clinically indicated. Electronically authenticated by: LYNDSAY JEAN Date: 2022-05-15 05:04 Normal [facility] Covid-19 PCR ([facility])on 04-30 SARS-CoV-2 (COVID-19) RNA ESTELITA+probe Ql (Unsp spec) Not detected Normal NOT DETECTED [facility] Comment on above: Result Comment: When [...] for this test is supported by the [place] of [employer] and Human Service's declaration that [...] used). Performed By: #### U RTPCR #### [facility] [address] [place] [address] Dr. Dwight Waters GLUCOSEon 05-15-2022 Glucose [Mass/Vol] 141 mg/dL High 70 - 99 mg/dL [facility] GOLD TOP TUBEon 05-15-2022 [facility] HEPATIC FUNCTION PANELon Albumin [Mass/Vol] 4.3 g/dL 3.5 - 5.0 g/dL [facility] ALP [Catalytic activity/Vol] 85 U/L 32 - 126 U/L [facility] ALT [Catalytic activity/Vol] 13 U/L 10 - 52 U/L [facility] AST [Catalytic activity/Vol] 15 U/L 10 - 39 U/L [facility] Bilirubin [Mass/Vol] 0.8 mg/dL <1.5 [facility] Bilirubin.direct [Mass/Vol] 0.2 mg/dL <0.3 [facility] Interpretation and review of laboratory results Normal [facility] Protein [Mass/Vol] 7.3 g/dL 6.4 - 8.3 g/dL [facility] LIPASEon 05-15-2022 Lipase [Catalytic activity/Vol] 8 U/L Low 11 - 82 U/L [facility] No Panel Informationon 05-15 Interpretation and review of laboratory results Abnormal [facility] PROF 14(COMP METB)on 022 Albumin [Mass/Vol] 3.8 g/dL Normal 3.4-5.0 [facility] Comment on above: Performed By: #### U RTPCR #### [facility] [address] [place] [address] Dr. Dwight Waters Albumin/Globulin [Mass ratio] 1.1 {ratio} Normal [facility] Comment on above: Performed By: #### U RTPCR #### [facility] [address] [place] [address] Dr. Dwight Waters ALP [Catalytic activity/Vol] 92 U/L Normal 46-116 [facility] Comment on above: Performed By: #### U RTPCR #### [facility] [address] [place] [address] Dr. Dwight Waters ALT [Catalytic activity/Vol] 25 U/L Normal 16-63 [facility] Comment on above: Performed By: #### U RTPCR #### [facility] [address] [place] [address] Dr. Dwight Waters Anion gap [Moles/Vol] 14.6 mmol/L Normal [facility] Comment on above: Performed By: #### U RTPCR #### [facility] [address] [address] [address] Dwight Waters AST [Catalytic activity/Vol] 17 U/L Normal 15-37 [facility] Comment on above: Performed By: #### U RTPCR #### [facility] [address] [address] [address] Dwight Waters Bilirubin [Mass/Vol] 0.6 mg/dL Normal 0.2-1.0 [facility] Comment on above: Performed By: #### U RTPCR #### [facility] [address] [place] [address] Dr. Dwight Waters Calcium [Mass/Vol] 9.9 mg/dL Normal 8.5-10.1 [facility] Comment on above: Performed By: #### U RTPCR #### [facility] [address] [place] [address] Dr. Dwight Waters Chloride [Moles/Vol] 106 mmol/L Normal 98-107 [facility] Comment on above: Performed By: #### U RTPCR #### [facility] [address] [place] [address] Dr. Dwight Waters CO2 [Moles/Vol] 24.2 mmol/L Normal 21.0-32.0 [facility] Comment on above: Performed By: #### U RTPCR #### [facility] [address] [place] [address] Dr. Dwight Waters Creatinine [Mass/Vol] 1.58 mg/dL Critically high 0.70-1.30 [facility] Comment on above: Performed By: #### U RTPCR #### [facility] [address] [place] [address] Dr. Dwight Waters EGFR-AF EMIRATI 56 mL/min/1.73m2 Critically low >=60 [facility] Comment on above: Performed By: #### U RTPCR #### [facility] [address] [place] [address] Dr. Dwight Waters EGFR-NON AF EMIRATI 46 mL/min/1.73m2 Critically low >=60 [facility] Comment on above: Performed By: #### U RTPCR #### [facility] [address] [address] [address] Dwight Waters Globulin (S) [Mass/Vol] 3.5 g/dL Normal [facility] Comment on above: Performed By: #### U RTPCR #### [facility] [address] [address] [address] Dwight Waters Glucose [Mass/Vol] 162 mg/dL Critically high 74-[address] [facility] Comment on above: Performed By: #### U RTPCR #### [facility] [address] [address] [address] Dwight Waters Potassium [Moles/Vol] 3.8 mmol/L Normal 3.5-5.1 [facility] Comment on above: Performed By: #### U RTPCR #### [facility] [address] [place] [address] Dr. Dwight Waters Protein [Mass/Vol] 7.3 g/dL Normal 6.4-8.2 [facility] Comment on above: Performed By: #### U RTPCR #### [facility] [address] [place] [address] Dr. Dwight Waters Sodium [Moles/Vol] 141 mmol/L Normal 136-145 [facility] Comment on above: Performed By: #### U RTPCR #### [facility] [address] [place] [address] Dr. Dwight Waters Urea nitrogen [Mass/Vol] 22.0 mg/dL Critically high 7.0-18.0 [facility] Comment on above: Performed By: #### U RTPCR #### [facility] [address] [place] [address] Dr. Dwight Waters Urea nitrogen/Creatinine [Mass ratio] 13.9 mg/mg Normal [facility] Comment on above: Performed By: #### U RTPCR #### [facility] [address] [place] [address] Dr. Dwight Waters Portable XR Chest Viewson [...] chest. IMPRESSION IMPRESSION: No acute cardiopulmonary disease [facility] Radiology Study observation (narrative) [facility] Portable XR Chest ViewsOrder ed By: Vladislav Omer on 05-15-2022 [facility] URINE DIPSTICK; REFLEX MICRO SCOPY; REFLEX CULTURE PERFORMABLEon 05-15-2022 Appearance (U) Clear Clear [facility] Color (U) Yellow Yellow [facility] Glucose Test strip (U) [Mass/Vol] 100 mg/dL Abnormal Negative [facility] Interpretation and review of laboratory results Abnormal [facility] Ketones (U) [Mass/Vol] Negative Negative [facility] Leukocyte esterase Test strip Ql (U) Large Abnormal Negative [facility] Nitrite Ql (U) Negative Negative [facility] pH (U) 6.0 [pH] 5.0 - 7.0 [facility] Protein (U) [Mass/Vol] 100 mg/dL Abnormal Negative [facility] RBC (U) [#/Vol] Large Abnormal Negative [facility] Specific gravity (U) [Rel density] 1.010 [facility] Urobilinogen (U) [Mass/Vol] 0.2 E.U./dL 0.2 E.U/dL, 1.0 E.U/dL [facility] URINE MICROSCOPIC WITH REFLE X TO CULTUREOrdered By: Rey Bro on 05-15-2022 Bacteria LM Ql (Urine sed) ABSENT ABSENT [facility] Epithelial cells.squamous LM Ql (Urine sed) ABSENT 1/hpf = 1+, 2-5/hpf = 2+, 0/hpf = 0+, ABSENT [facility] Interpretation and review of laboratory results Abnormal [facility] RBC LM.HPF (Urine sed) [#/Area] /[HPF] Abnormal 0 - 2 /HPF [facility] WBC LM.HPF (Urine sed) [#/Area] 10-20 Abnormal 0 - 5 /HPF [facility] CT ABD/PELVIS WO CONon 05-12 CT ABD/PELVIS WO CON Begin Addendum #[address] Lund 3:25 PM EST 05/11/2022. Begin Addendum #2 IMPRESSION below should also contain the followin. 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 The [place] kidneys are progressively atrophic bilaterally compared to [...] of 06/14/2020 are no longer present. The [place] distal right ureter is decompressed beyond this [...] with surgical history for renal graft and [place] right urinary drainage, as a discrete ureteroneocystostomy is not identified, and the graft may be draining via a ureteroureterostomy. Urology consultation recommended. 3. The [place] kidneys are bilaterally atrophic, with right renal sinus calcifications consistent with nonobstructing right [place] renal calculi up to 6 mm. Normal [facility] CBC AUTO DIFFon 05-11-2022 BASO # 0.1 103/ul Normal 0.0-0.1 [facility] Comment on above: Performed By: #### U RTPCR #### [facility] [address] [address] [address] Dwight Waters Basophils/100 WBC (Bld) 0.8 % Normal 0.2-2.0 [facility] Comment on above: Performed By: #### U RTPCR #### [facility] [address] [place] [address] Dr. Dwight Waters EO # 0.2 103/ul Normal 0.0-0.7 [facility] Comment on above: Performed By: #### U RTPCR #### [facility] [address] [place] [address] Dr. Dwight Waters Eosinophils/100 WBC (Bld) 2.5 % Normal 0.9-7.0 [facility] Comment on above: Performed By: #### U RTPCR #### [facility] [address] [place] [address] Dr. Dwight Waters Erythrocyte distribution width (RBC) [Ratio] 12.5 % Normal 11.0-15.0 [facility] Comment on above: Performed By: #### U RTPCR #### [facility] [address] [place] [address] Dr. Dwight Waters Hematocrit (Bld) [Volume fraction] 48.3 % Normal 42.0-54.0 [facility] Comment on above: Performed By: #### U RTPCR #### [facility] [address] [place] [address] Dr. Dwight Waters Hemoglobin (Bld) [Mass/Vol] 15.3 g/dL Normal 14.0-18.0 [facility] Comment on above: Performed By: #### U RTPCR #### [facility] [address] [place] [address] Dr. Dwight Waters IG # 0.01 10e3/ul Normal 0.00-0.03 [facility] Comment on above: Performed By: #### U RTPCR #### [facility] [address] [place] [address] Dr. Dwight Waters IG % 0.2 % Normal 0.0-0.5 [facility] Comment on above: Performed By: #### U RTPCR #### [facility] [address] [address] [address] Dwight Waters LYMPH # 1.9 103/ul Normal 1.2-3.8 [facility] Comment on above: Performed By: #### U RTPCR #### [facility] [address] [place] [address] Dr. Dwight Waters Lymphocytes/100 WBC (Bld) 29.8 % Normal 20.5-60.0 [facility] Comment on above: Performed By: #### U RTPCR #### [facility] [address] [place] [address] Dr. Dwight Waters MANUAL DIFF REQ NO Normal [facility] Comment on above: Performed By: #### U RTPCR #### [facility] [address] [place] [address] Dr. Dwight Waters MCH (RBC) [Entitic mass] 28.2 pg Normal 25.9-34.0 [facility] Comment on above: Performed By: #### U RTPCR #### [facility] [address] [place] [address] Dr. Dwight Waters MCHC (RBC) [Mass/Vol] 31.7 g/dL Normal 29.9-35.2 [facility] Comment on above: Performed By: #### U RTPCR #### [facility] [address] [place] [address] Dr. Dwight Waters MCV (RBC) [Entitic vol] 89.1 fL Normal 80.0-94.0 [facility] Comment on above: Performed By: #### U RTPCR #### [facility] [address] [place] [address] Dr. Dwight Waters MONO # 0.6 103/ul Normal 0.3-0.8 [facility] Comment on above: Performed By: #### U RTPCR #### [facility] [address] [place] [address] Dr. Dwight Waters Monocytes/100 WBC (Bld) 9.0 % Normal 1.7-12.0 [facility] Comment on above: Performed By: #### U RTPCR #### [facility] [address] [place] [address] Dr. Dwight Waters NEUT # 3.6 103/ul Normal 1.4-6.5 [facility] Comment on above: Performed By: #### U RTPCR #### [facility] [address] [place] [address] Dr. Dwight Waters Neutrophils/100 WBC (Bld) 57.7 % Normal 43.0-75.0 [facility] Comment on above: Performed By: #### U RTPCR #### [facility] [address] [place] [address] Dr. Dwight Waters Platelet mean volume (Bld) [Entitic vol] 9.9 fL Normal 9.5-13.5 [facility] Comment on above: Performed By: #### U RTPCR #### [facility] [address] [place] [address] Dr. Dwight Waters PLT 249 103/ul Normal 150-450 [facility] Comment on above: Performed By: #### U RTPCR #### [facility] [address] [place] [address] Dr. Dwight Waters RBC 5.42 106/ul Normal 4.70-6.10 [facility] Comment on above: Performed By: #### U RTPCR #### [facility] [address] [place] [address] Dr. Dwight Waters WBC 6.3 103/ul Normal 4.0-11.0 [facility] Comment on above: Performed By: #### U RTPCR #### [facility] [facility] [address] [place] [address] Dr. Dwight Waters ER URINE PROFILEon 2 Bilirubin Ql (U) Unable to perform te sting due to color interference. Abnormal NEGATIVE [facility] Comment on above: Performed By: #### U RTPCR #### [facility] [address] [place] [address] Dr. Dwight Waters Clarity (U) TURBID Abnormal CLEAR [facility] Comment on above: Performed By: #### U RTPCR #### [facility] [address] [place] [address] Dr. Dwight Waters Color (U) RED Abnormal YELLOW [facility] Comment on above: Performed By: #### U RTPCR #### [facility] [address] [place] [address] Dr. Dwight SHARMA A micrscopic examina tion will be performed if indicated. Normal [facility] Comment on above: Performed By: #### U RTPCR #### [facility] [address] [address] [address] Dwight Waters Glucose Ql (U) Unable to perform te sting due to color interference. Abnormal NEGATIVE [facility] Comment on above: Performed By: #### U RTPCR #### [facility] [address] [place] [address] Dr. Dwight Waters Hemoglobin Ql (U) Unable to perform te sting due to color interference. Abnormal NEGATIVE [facility] Comment on above: Performed By: #### U RTPCR #### [facility] [address] [place] [address] Dr. Dwight Waters Ketones Ql (U) Unable to perform te sting due to color interference. Abnormal NEGATIVE [facility] Comment on above: Performed By: #### U RTPCR #### [facility] [address] [place] [address] Dr. Dwight Waters LEUKOCYTES Unable to perform te sting due to color interference. Abnormal NEGATIVE [facility] Comment on above: Performed By: #### U RTPCR #### [facility] [address] [place] [address] Dr. Dwight Waters Nitrite Ql (U) Unable to perform te sting due to color interference. Abnormal NEGATIVE [facility] Comment on above: Performed By: #### U RTPCR #### [facility] [address] [address] [address] Dwight Waters pH (U) 6.5 [pH] Normal 5-9 [facility] Comment on above: Performed By: #### U RTPCR #### [facility] [address] [place] [address] Dr. Dwight Waters SPEC GRAVITY 1.020 Normal 1.005-<=1.02 5 [facility] Comment on above: Performed By: #### U RTPCR #### [facility] [address] [place] [address] Dr. Dwight Waters UA PROTEIN Unable to perform te sting due to color interference. Normal NEGATIVE/ TRACE [facility] Comment on above: Performed By: #### U RTPCR #### [facility] [address] [place] [address] Dr. Dwight Waters UR MICRO IND INDICATED Normal [facility] Comment on above: Performed By: #### U RTPCR #### [facility] [address] [place] [address] Dr. Dwight Waters UROBILINOGEN Unable to perform te sting due to color interference. Normal 0.2 - 1.0 [facility] Comment on above: Performed By: #### U RTPCR #### [facility] [address] [place] [address] Dr. Dwight Waters PROF 14(COMP METB)on 022 Albumin [Mass/Vol] 3.8 g/dL Normal 3.4-5.0 [facility] Comment on above: Performed By: #### C MP #### [facility] [address] [place] [address] Dr. Dwight Waters Albumin/Globulin [Mass ratio] 1.1 {ratio} Normal [facility] Comment on above: Performed By: #### C MP #### [facility] [address] [place] [address] Dr. Dwight Waters ALP [Catalytic activity/Vol] 106 U/L Normal 46-116 [facility] Comment on above: Performed By: #### C MP #### [facility] [address] [place] [address] Dr. Dwight Waters ALT [Catalytic activity/Vol] 30 U/L Normal 16-63 [facility] Comment on above: Performed By: #### C MP #### [facility] [address] [place] [address] Dr. Dwight Waters Anion gap [Moles/Vol] 11.7 mmol/L Normal [facility] Comment on above: Performed By: #### C MP #### [facility] [address] [address] [address] Dwight Waters AST [Catalytic activity/Vol] 16 U/L Normal 15-37 [facility] Comment on above: Performed By: #### C MP #### [facility] [address] [address] [address] Dwight Waters Bilirubin [Mass/Vol] 0.6 mg/dL Normal 0.2-1.0 [facility] Comment on above: Performed By: #### C MP #### [facility] [address] [place] [address] Dr. Dwight Waters Calcium [Mass/Vol] 9.1 mg/dL Normal 8.5-10.1 [facility] Comment on above: Performed By: #### C MP #### [facility] [address] [place] [address] Dr. Dwight Waters CO2 [Moles/Vol] 27.4 mmol/L Normal 21.0-32.0 [facility] Comment on above: Performed By: #### C MP #### [facility] [address] [place] [address] Dr. Dwight Waters Creatinine [Mass/Vol] 1.18 mg/dL Normal 0.70-1.30 [facility] Comment on above: Performed By: #### C MP #### [facility] [address] [place] [address] Dr. Dwight Waters EGFR-AF EMIRATI >60 Normal >=60 [facility] Comment on above: Performed By: #### C MP #### [facility] [address] [place] [address] Dr. Dwight Waters EGFR-NON AF EMIRATI >60 Normal >=60 [facility] Comment on above: Performed By: #### C MP #### [facility] [address] [place] [address] Dr. Dwight Waters Globulin (S) [Mass/Vol] 3.6 g/dL Normal [facility] Comment on above: Performed By: #### C MP #### [facility] [address] [place] [address] Dr. Dwight Waters Glucose [Mass/Vol] 192 mg/dL Critically high 74-[address] [facility] Comment on above: Performed By: #### C MP #### [facility] [address] [place] [address] Dr. Dwight Waters Potassium [Moles/Vol] 4.1 mmol/L Normal 3.5-5.1 [facility] Comment on above: Performed By: #### C MP #### [facility] [address] [place] [address] Dr. Dwight Waters Protein [Mass/Vol] 7.4 g/dL Normal 6.4-8.2 [facility] Comment on above: Performed By: #### C MP #### [facility] [address] [place] [address] Dr. Dwight Waters Sodium [Moles/Vol] 142 mmol/L Normal 136-145 [facility] Comment on above: Performed By: #### C MP #### [facility] [address] [place] [address] Dr. Dwight Waters Urea nitrogen [Mass/Vol] 17.0 mg/dL Normal 7.0-18.0 [facility] Comment on above: Performed By: #### C MP #### [facility] [address] [place] [address] Dr. Dwight Waters Urea nitrogen/Creatinine [Mass ratio] 14.4 mg/mg Normal [facility] Comment on above: Performed By: #### C MP #### [facility] [address] [place] [address] Dr. Dwight Waters URINE MICROSCOPIC ONLYon BACTERIA NONE SEEN Normal NONE SEEN [facility] Comment on above: Performed By: #### U RTPCR #### [facility] [address] [place] [address] Dr. Dwight Waters Bacteria identified Cx Nom (U) NOT INDICATED Normal [facility] Comment on above: Performed By: #### U RTPCR #### [facility] [address] [place] [address] Dr. Dwight Waters CAST NONE SEEN Normal NONE SEEN [facility] Comment on above: Performed By: #### U RTPCR #### [facility] [address] [address] [address] Dwight Waters Crystals LM Nom (Urine sed) NONE SEEN Normal NONE SEEN [facility] Comment on above: Performed By: #### U RTPCR #### [facility] [address] [place] [address] Dr. Dwight Waters Epithelial cells LM Ql (Urine sed) RARE Normal NONE SEEN /RARE [facility] Comment on above: Performed By: #### U RTPCR #### [facility] [address] [place] [address] Dr. Dwight Waters MUCOUS NONE SEEN Normal NONE SEEN [facility] Comment on above: Performed By: #### U RTPCR #### [facility] [address] [place] [address] Dr. Dwight Waters RBC (U) [#/Vol] /uL Abnormal 0-2 [facility] Comment on above: Performed By: #### U RTPCR #### [facility] [address] [place] [address] Dr. Dwight Waters WBC NONE SEEN Normal NONE SEEN [facility] Comment on above: Performed By: #### U RTPCR #### [facility] [address] [place] [address] Dr. Dwight Waters K (Potassium)on 01-06-2020 Potassium [Moles/Vol] 4.4 mmol/L Normal 3.7-5.3 [facility] Comment on above: Performed By: #### K #### [facility] [address] [place] [address] Credit Counselor: Kehinde Woodward MD Potassiumon 01-06-2020 Potassium [Moles/Vol] 4.4 mmol/L 3.7 - 5.3 mmol/L [facility] Work Phone: Hemoglobin and Hematocrit, B bridget 10-24-2019 Hematocrit (Bld) [Volume fraction] 23.6 % Low 40.7 - 50.3 % [facility], [place] Hemoglobin (Bld) [Mass/Vol] 7.3 g/dL Low 13 - 17 g/dL [facility], [place] Interpretation and review of laboratory results Abnormal [place], [place] Hgb/Hcton 10-24-2019 Hematocrit (Bld) [Volume fraction] 23.6 % Low 40.7-50.3 [facility] Comment on above: Performed By: #### H H #### [facility] [address] [place] [address] Credit Counselor: Kehinde Woodward MD Hemoglobin (Bld) [Mass/Vol] 7.3 g/dL Low 13.0-17.0 [facility] Comment on above: Performed By: #### H H #### [facility] [address] [place] [address] Credit Counselor: Kehinde Woodward MD Hemoglobinon 08-27-2019 Hemoglobin (Bld) [Mass/Vol] 7.5 g/dL Low 13.0-17.0 [facility] Comment on above: Performed By: #### H GB #### [facility] [address] [place] [address] Credit Counselor: Kehinde Woodward MD Hemoglobin (Bld) [Mass/Vol] 7.5 g/dL Low 13 - 17 g/dL [place], [place] Interpretation and review of laboratory results Abnormal [place] Hemoglobinon 08-08-2019 Hemoglobin (Bld) [Mass/Vol] 8.3 g/dL Low 13.0-17.0 [facility] Comment on above: Performed By: #### H GB #### [address] [place] [address] Credit Counselor: Kehinde Woodward MD Hemoglobin (Bld) [Mass/Vol] 8.3 g/dL Low 13 - 17 g/dL [place], [place] Interpretation and review of laboratory results Abnormal [place] Hemoglobinon 08-04-2019 Hemoglobin (Bld) [Mass/Vol] 8.0 g/dL Low 13.0-17.0 [facility] Comment on above: Performed By: #### H GB #### [facility] [address] [place] [address] Credit Counselor: Kehinde Woodward MD Hemoglobin A1Con 08-03-2019 HbA1c (Bld) [Mass fraction] % Low 4.8-5.9 [facility] Comment on above: Result Comment: The ADA and AACC recommend providing the estimated average glucose result to permit better patient understanding of their HBA1c result. Performed By: #### G LYHGB #### [facility] [address] [place] [address] Credit Counselor: Kehinde Woodward MD Glucose [Mass/Vol] mg/dL mg/dL [place], [place] Comment on above: The ADA and AACC rec ommend providing the estimated average glucose result to permit better patient understanding of their HBA1c result. HbA1c (Bld) [Mass fraction] % Low 4.8 - 5.9 % [place], [place] Interpretation and review of laboratory results Abnormal [place] Hemoglobinon 08-01-2019 Hemoglobin (Bld) [Mass/Vol] 8.1 g/dL Low 13.0-17.0 [facility] Comment on above: Performed By: #### H GB #### [address] [place] [address] Credit Counselor: Kehinde Woodward MD Hemoglobin (Bld) [Mass/Vol] 8.1 g/dL Low 13 - 17 g/dL [place], [place] Interpretation and review of laboratory results Abnormal [place] Hgb/Hcton 06-10-2019 Hematocrit (Bld) [Volume fraction] 24.3 % Low 40.7-50.3 [facility] Comment on above: Performed By: #### H H #### [facility] [address] [place] [address] Credit Counselor: Kehinde Woodward MD Hemoglobin (Bld) [Mass/Vol] 7.4 g/dL Low 13.0-17.0 [facility] Comment on above: Performed By: #### H H #### [facility] [address] [place] [address] Credit Counselor: Kehinde Woodward MD Hemoglobinon 06-01-2019 Hemoglobin (Bld) [Mass/Vol] 7.2 g/dL Low 13.0-17.0 [facility] Comment on above: Performed By: #### H GB #### [facility] [address] [place], [place] [id number] Credit Counselor: Kehinde Woodward MD K (Potassium)on 01-14-2019 Potassium [Moles/Vol] 3.6 mmol/L Low 3.7-5.3 [facility] Comment on above: Performed By: #### K #### [facility] [address] [place], [place] [id number] Credit Counselor: Kehinde Woodward MD Otheron 10-19-2018 IMPRESSION: 1. [...] characteristics determined by Toxicology Laboratory at [facility]. It has not been cleared or [...] Amitriptyline(50), Amphetamine(250), Atenolol(500), Barbiturates(1000), Benzoylecgonine(50), Buprenorphine(50), Bupropion(25), Caffeine(79625), Chlordiazepoxide(50), Chlorpheniramine(100), Chlorpromazine(50), Citalopram(100), Clonazepam(200), Cocaine(25), Codeine(200), [...] method NONE DETECTED Invalid Interpretation Shira L[place], [facility] TOXICOLOGY SCREEN URINE - [facility] 10-12-2018 Drugs identified Screen Nom (U) For Medical Purposes Only, Non-forensic, screen results are presumptive. No confirmatory testing will follow. Invalid Interpretation Code MISSY, [facility] Comment on above: This Liquid Chromato graphy Mass Spectrometry (LC/MS/MS) test was developed and its performance characteristics determined by Toxicology Laboratory at [facility]. It has not been cleared or [...] Amitriptyline(50), Amphetamine(250), Atenolol(500), Barbiturates(200), Benzoylecgonine(50), Buprenorphine(500), Bupropion(25), Caffeine(06692), Cannabinoids(THC)(50), Chlordiazepoxide(50), Chlorpheniramine(100), Chlorpromazine(50), Citalopram(100), Clonazepam(200), Cocaine(25), [...] 56 mm[Hg] Candie Almaguer MD Work Phone: [facility] 02-26-2024 09:07-0400 Heart rate 65 /min Candie Almaguer MD Work Phone: [facility] 02-26-2024 09:07-0400 Systolic blood pressure 113 mm[Hg] Candie Almaguer MD Work Phone: [facility] 02-26-2024 09:06-0400 Body height 170.2 cm Candie Almaguer MD Work Phone: [facility] 02-26-2024 09:06-0400 Body mass index (BMI) [Ratio] 28.9 kg/m2 Candie Almaguer MD Work Phone: [facility] 02-26-2024 09:06-0400 Body weight 83.69 kg Candie Almaguer MD Work Phone: [facility] 02-26-2024 09:06-0400 Respiratory rate 20 /min Candie Almaguer MD Work Phone: [facility] 02-26-2024 09:06-0400 SaO2% (BldA) [Mass fraction] 97 % Candie Almaguer MD Work Phone: [facility] 01-23-2024 15:04-0500 Body temperature 97.9 [degF] Kevin Sage MD Work Phone: [facility] 01-23-2024 15:04-0500 Diastolic blood pressure 67 mm[Hg] Kevin Sage MD Work Phone: [facility] 01-23-2024 15:04-0500 Heart rate 51 /min Kevin Sage MD Work Phone: [facility] 01-23-2024 15:04-0500 Respiratory rate 16 /min Kevin Sage MD Work Phone: [facility] 01-23-2024 15:04-0500 SaO2% (BldA) [Mass fraction] 94 % Kevin Sage MD Work Phone: [facility] 01-23-2024 15:04-0500 Systolic blood pressure 151 mm[Hg] Kevin Sage MD Work Phone: [facility] 01-23-2024 10:46-0500 Body mass index (BMI) [Ratio] 30.94 kg/m2 Kevin Sage MD Work Phone: [facility] 01-23-2024 10:46-0500 Body weight 89.6 kg Kevin Sage MD Work Phone: [facility] 01-18-2024 11:21-0500 Body height 170.2 cm Kevin Sage MD Work Phone: [facility] 01-06-2024 09:04-0500 Body height 170.2 cm Zuly Bruno NP Work Phone: [facility] 01-06-2024 09:04-0500 Body mass index (BMI) [Ratio] 32.42 kg/m2 Zuly Tannerlatishaz DRAIN CLEANER PLUMBER Work Phone: [facility] 01-06-2024 09:04-0500 Body temperature 97.81 [degF] Zuly Tannerholz DRAIN CLEANER PLUMBER Work Phone: [facility] 01-06-2024 09:04-0500 Body weight 93.89 kg Zuly Tannrelatishaz [employer]RAIN CLEANER PLUMBER Work Phone: [facility] 01-06-2024 09:04-0500 Diastolic blood pressure 70 mm[Hg] Zuly Brianholz [employer]RA[employer] CLEANER PLUMBER Work Phone: [facility] 01-06-2024 09:04-0500 Heart rate 95 /min Zuly Tannerlatishaz [employer]RAIN CLEANER PLUMBER Work Phone: [facility] 01-06-2024 09:04-0500 Respiratory rate 17 /min Zulytray Tannerholz DRAIN CLEANER PLUMBER Work Phone: [facility] 01-06-2024 09:04-0500 SaO2% (BldA) [Mass fraction] 99 % Zulytray Tannerholz DRAIN CLEANER PLUMBER Work Phone: [facility] 01-06-2024 09:04-0500 Systolic blood pressure 138 mm[Hg] Zuly Tannerholz DRAIN CLEANER PLUMBER Work Phone: [facility] 09-11-2023 10:31-0400 Body temperature 97.81 [degF] Steve Yeison MBBS Work Phone: [facility] 09-11-2023 10:31-0400 Diastolic blood pressure 66 mm[Hg] Steve Yeison MBBS Work Phone: [facility] 09-11-2023 10:31-0400 Heart rate 70 /min Steve Yeison MBBS Work Phone: [facility] 09-11-2023 10:31-0400 Respiratory rate 20 /min Steve Yeison MBBS Work Phone: [facility] 09-11-2023 10:31-0400 SaO2% (BldA) [Mass fraction] 91 % Steve Yeison MBBS Work Phone: [facility] 09-11-2023 10:31-0400 Systolic blood pressure 129 mm[Hg] Steve Yeison MBBS Work Phone: [facility] 09-10-2023 15:50-0400 Body mass index (BMI) [Ratio] 31.99 kg/m2 Steve Yeison MBBS Work Phone: [facility] 09-10-2023 15:50-0400 Body weight 92.67 kg Steve Yeison MBBS Work Phone: [facility] 09-02-2023 07:32-0400 Body height 170.2 cm Steve Yeison MBBS Work Phone: [facility] 08-28-2023 13:33-0400 Body height 170.2 cm Steve Yeison MBBS Work Phone: [facility] 08-28-2023 13:33-0400 Body mass index (BMI) [Ratio] 32.12 kg/m2 Steve Yeison MBBS Work Phone: [facility] 08-28-2023 13:33-0400 Body temperature 97.3 [degF] Steve Yeison MBBS Work Phone: [facility] 08-28-2023 13:33-0400 Body weight 93.03 kg Steve Yeison MBBS Work Phone: [facility] 08-28-2023 13:33-0400 Diastolic blood pressure 41 mm[Hg] Steve Yeison MBBS Work Phone: [facility] 08-28-2023 13:33-0400 Heart rate 116 /min Steve Yeison MBBS Work Phone: [facility] 08-28-2023 13:33-0400 Systolic blood pressure 106 mm[Hg] Steve Farrarmatthew LEIGH Work Phone: [facility] 06-12-2023 14:50-0400 Body mass index (BMI) [Ratio] 33.8 kg/m2 Rebeca Gutierrez FLAME DEGREASER-PERSONAL FITNESS MANAGER Work Phone: [facility] 06-12-2023 14:50-0400 Body temperature 97.3 [degF] Rebeca Gutierrez FLAME DEGREASER-PERSONAL FITNESS MANAGER Work Phone: [facility] 06-12-2023 14:50-0400 Body weight 97.89 kg Rebeca Gutierrez FLAME DEGREASER-PERSONAL FITNESS MANAGER Work Phone: [facility] 06-12-2023 14:50-0400 Diastolic blood pressure 77 mm[Hg] Rebeca Gutierrez FLAME DEGREASER-PERSONAL FITNESS MANAGER Work Phone: [facility] 06-12-2023 14:50-0400 Heart rate 76 /min Rebeca Gutierrez FLAME DEGREASER-PERSONAL FITNESS MANAGER Work Phone: [facility] 06-12-2023 14:50-0400 Systolic blood pressure 146 mm[Hg] Rebeca Gutierrez FLAME DEGREASER-PERSONAL FITNESS MANAGER Work Phone: [facility] 01-16-2023 08:57-0500 Body height 170.2 cm [facility] Work Phone: [facility] 01-16-2023 08:57-0500 Body mass index (BMI) [Ratio] 33.66 kg/m2 [facility] Work Phone: [facility] 01-16-2023 08:57-0500 Body temperature 97.3 [degF] [facility] Work Phone: [facility] 01-16-2023 08:57-0500 Body weight 97.48 kg [facility] Work Phone: [facility] 01-16-2023 08:57-0500 Diastolic blood pressure 75 mm[Hg] [facility] Work Phone: [facility] 01-16-2023 08:57-0500 Heart rate 76 /min [facility] Work Phone: [facility] 01-16-2023 08:57-0500 Systolic blood pressure 142 mm[Hg] [facility] Work Phone: [facility] 09-10-2022 09:38-0400 Body height 170.2 cm Ryan Yepez MD Work Phone: [facility] 09-10-2022 09:38-0400 Body mass index (BMI) [Ratio] 33.67 kg/m2 Ryan Yepez MD Work Phone: [facility] 09-10-2022 09:38-0400 Body weight 97.52 kg Ryan Yepez MD Work Phone: [facility] 09-10-2022 09:38-0400 Diastolic blood pressure 83 mm[Hg] Ryan Yepez MD Work Phone: [facility] 09-10-2022 09:38-0400 Heart rate 64 /min Ryan Yepez MD Work Phone: [facility] 09-10-2022 09:38-0400 SaO2% (BldA) [Mass fraction] 96 % Ryan Yepez MD Work Phone: [facility] 09-10-2022 09:38-0400 Systolic blood pressure 129 mm[Hg] Ryan Yepez MD Work Phone: [facility] 07-07-2022 13:48-0400 Diastolic blood pressure 76 mm[Hg] Ryan Yepez MD Work Phone: [facility] 07-07-2022 13:48-0400 Heart rate 82 /min Ryan Yepez MD Work Phone: [phone] [place] [address] 07-07-2022 13:48-0400 SaO2% (BldA) [Mass fraction] 96 % Ryan Yepez MD Work Phone: [phone] [place] [address] 07-07-2022 13:48-0400 Systolic blood pressure 141 mm[Hg] Ryan Yepez MD Work Phone: [phone](267)[phone] [place] [address] 06-27-2022 13:32-0400 Body height 170.2 cm Ryan Yepez MD Work Phone: [phone] [place] [address] 06-27-2022 13:32-0400 Body mass index (BMI) [Ratio] 34.24 kg/m2 Ryan Yepez MD Work Phone: [phone] [place] [address] 06-27-2022 13:32-0400 Body temperature 98.6 [degF] Ryan Yepez MD Work Phone: 2(997)[phone] [place] [address] 06-27-2022 13:32-0400 Body weight 99.16 kg Ryan Yepez MD Work Phone: 1(263)[phone] [place] [address] 06-27-2022 13:32-0400 Diastolic blood pressure 78 mm[Hg] Ryan Yepez MD Work Phone: 9(882)103-609330 [place] [address] 06-27-2022 13:32-0400 Heart rate 77 /min Ryan Yepez MD Work Phone: 9(869)651-840730 [place] [address] 06-27-2022 13:32-0400 SaO2% (BldA) [Mass fraction] 95 % Ryan Yepez MD Work Phone: 6(607)578-712030 [place] [address] 06-27-2022 13:32-0400 Systolic blood pressure 121 mm[Hg] Ryan Yepez MD Work Phone: [facility] 06-27-2022 10:52-0400 Body height 170.2 cm Rena Brewster RN [facility] 06-27-2022 10:52-0400 Body mass index (BMI) [Ratio] 34.46 kg/m2 Rena Brewster RN [facility] 06-27-2022 10:52-0400 Body temperature 98.2 [degF] Rena Brewster RN [facility] 06-27-2022 10:52-0400 Body weight 99.79 kg Rena Brewster RN [facility] 06-27-2022 10:52-0400 Diastolic blood pressure 73 mm[Hg] Rena Brewster RN [facility] 06-27-2022 10:52-0400 Heart rate 78 /min Rena Brewster RN [facility] 06-27-2022 10:52-0400 Respiratory rate 20 /min Rena Brewster RN [facility] 06-27-2022 10:52-0400 SaO2% (BldA) [Mass fraction] 97 % Renaanalilia Brewster RN [facility] 06-27-2022 10:52-0400 Systolic blood pressure 135 mm[Hg] Rena Brewster RN [facility] 06-12-2022 14:23-0400 Body mass index (BMI) [Ratio] 34.59 kg/m2 Setve LEIGH Work Phone: [facility] 06-12-2022 14:23-0400 Body temperature 97 [degF] Steve LEIGH Work Phone: [facility] 06-12-2022 14:23-0400 Body weight 100.2 kg Steve LEIGH Work Phone: [facility] 06-12-2022 14:23-0400 Diastolic blood pressure 66 mm[Hg] Steve Latham MBBS Work Phone: [facility] 06-12-2022 14:23-0400 Heart rate 63 /min Steve Latham MBBS Work Phone: [facility] 06-12-2022 14:23-0400 Systolic blood pressure 133 mm[Hg] Steve Latham MBBS Work Phone: [facility] 05-20-2022 15:21-0400 Body temperature 97.9 [degF] Gian Villatoro MD Work Phone: [facility] 05-20-2022 15:21-0400 Diastolic blood pressure 64 mm[Hg] Gian Villatoro MD Work Phone: [facility] 05-20-2022 15:21-0400 Heart rate 55 /min Gian Villatoro MD Work Phone: 6(033)[phone] [address] 05-20-2022 15:21-0400 Respiratory rate 15 /min Gian Villatoro MD Work Phone: 8([phone])[phone] [place] [address] 05-20-2022 15:21-0400 SaO2% (BldA) [Mass fraction] 95 % Gian Villatoro MD Work Phone: [facility] 05-20-2022 15:21-0400 Systolic blood pressure 145 mm[Hg] Gian Villatoro MD Work Phone: 2(790)[phone] [address] 05-19-2022 12:15-0400 Body mass index (BMI) [Ratio] 35.87 kg/m2 Gian Villatoro MD Work Phone: 0(398)197-231574 [address] 05-19-2022 12:15-0400 Body weight 103.92 kg Gian Villatoro MD Work Phone: 4(504)[phone] [place] [address] Comment on above: standing scale 05-16-2022 16:19-0400 Body height 170.2 cm Gian Villatoro MD Work Phone: [facility] 10-19-2018 08:44-0500 BMI (Body Mass Index) 26.58 kg/m2 [facility] Work Phone: 10-19-2018 08:44-0500 BP Diastolic 76 mm[Hg] [facility] Work Phone: 10-19-2018 08:44-0500 BP Systolic 144 mm[Hg] [facility] Work Phone: 10-19-2018 08:44-0500 Height 172.[address] [facility] Work Phone: 10-19-2018 08:44-0500 Pulse (Heart Rate) 92 /min [facility] Work Phone: 10-19-2018 08:44-0500 Pulse Oximetry 99 % [facility] Work Phone: 10-19-2018 08:44-0500 Respiratory Rate 16 /min [facility] Work Phone: 10-19-2018 08:44-0500 Weight 79.[address] [facility] Work Phone: 10-12-2018 09:50-0500 BMI (Body Mass Index) 27.24 kg/m2 [facility] Work Phone: 10-12-2018 09:50-0500 Body Temperature 98.6 [degF] [facility] Work Phone: 10-12-2018 09:50-0500 BP Diastolic 80 mm[Hg] [facility] Work [facility]: 10-12-2018 09:50-0500 BP Systolic 157 mm[Hg] [facility] Work Phone: 10-12-2018 09:50-0500 Height 169.5 cm [facility] Work Phone: 10-12-2018 09:50-0500 Pulse (Heart Rate) 94 /min [facility] Work Phone: 10-12-2018 09:50-0500 Weight 78.29 kg [facility] Work Phone: Encounters Encounter Date Encounter Type Care Provider Facility Start: 05-13-2024 End: 05-13-2024 ambulatory [facility] Start: 04-18-2024 End: 04-18-2024 ambulatory ZULY BRUNO Not Available Start: 03-24-2024 End: 03-24-2024 Patient encounter procedure Angel Carpio [facility],PharmD Pharmacy Outpatient RX Yanci Start: 03-24-2024 End: 03-24-2024 ambulatory Angel Carpio [facility],PharmD Pharmacy Outpatient RX Yanci Start: 03-22-2024 End: [...] End: 03-02-2024 ambulatory Meka Munoz [facility] Pharmacy Outpatient RX [facility] Start: 03-02-2024 End: 03-02-2024 Patient encounter procedure Meka Alexander [facility] Pharmacy Outpatient RX Yanci Start: 03-01-2024 ambulatory ZULY KIANA Facility: [facility] Start: 03-01-2024 End: 03-01-2024 ambulatory JOHNNA HOLLIDAY Not Available Start: 02-26-2024 ambulatory [facility] Facility: [facility] Start: 02-26-2024 End: 02-26-2024 Office outpatient new 30 minutes Candie Almaguer MD Work Phone: [facility] Comment on above: Heart failure, diast olic, acute (Primary Dx) Start: 02-26-2024 [facility] Start: 02-25-2024 End: 02-25-2024 ambulatory FIDELINA SANCHEZ Not Available Start: 02-23-2024 End: 02-23-2024 ambulatory PALMA PALACIOS Not Available Start: 02-11-2024 End: 02-11-2024 [facility] Available Start: 01-16-2024 Encounter for other preprocedural examination KELVIN PACHECO [facility] Start: 01-16-2024 End: 01-23-2024 Evaluation and management of inpatient Kevin Sage MD Work Phone: [email or web address] Comment on above: Pleural effusion on right Start: 01-16-2024 End: 01-23-2024 Patient encounter status Kevin Sage MD Work Phone: [facility] Work Phone: Start: 01-12-2024 End: 01-12-2024 ambulatory Angel Fete RPh,PharmD Pharmacy Outpatient RX [facility] Start: 01-12-2024 End: 01-12-2024 Patient encounter procedure Angel Fete RPh,PharmD Pharmacy Outpatient RX [facility] Start: 01-08-2024 Clinisync Result Encounter Generic External Data Provider [facility] External Department Unsolicited Start: 01-08-2024 Clinisync Result Encounter Generic External Data Provider [facility] External Department Unsolicited Start: 01-06-2024 End: 01-06-2024 ambulatory ZULY TANNERJOSE E Not Available Start: 01-06-2024 End: 01-06-2024 Office outpatient visit 25 minutes Zuly Tannerjose e [employer] Work Phone: [facility] Comment on above: Bilateral lower extr emity edema (Primary Dx); 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); Atherosclerosis 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); Obesity (BMI 30-39.9); DARLENE (obstructive sleep apnea); Tremor; Immunocompromised (CMS/HCC); Primary hypertension ([facility]); Shortness of breath Start: 01-01-2024 Clinisync Result Encounter Generic External Data Provider [facility] External Department Unsolicited Start: 01-01-2024 Clinisync Result Encounter Generic External Data Provider [facility] External Department Unsolicited Start: 11-03-2023 End: 11-03-2023 ambulatory ZULY KIANA Not Available Start: 10-06-2023 ambulatory Angel Carpio RP,PharmD Pharmacy Outpatient RX [facility] Start: 10-06-2023 Patient encounter procedure Angel Fete RPh,PharmD Pharmacy Outpatient RX Yanci Start: 09-29-2023 [facility] Start: 09-23-2023 ambulatory ZULY BRUNO Facility: [facility] Start: 09-15-2023 ambulatory ZULY BRUNO Facility: [facility] Start: 08-28-2023 End: 09-11-2023 Evaluation and management of inpatient Steve LEIGH Work Phone: [email or web address] Start: 08-28-2023 End: 08-28-2023 Office outpatient visit 25 minutes Steve LEIGH Work Phone: [facility] Comment on above: Immunosuppressed sta tus (Primary Dx); Kidney replaced by transplant; Aftercare following organ transplant; High risk medication use; Other general symptoms and signs; Abnormal blood chemistry; Hypertension secondary to other renal disorders Start: 08-28-2023 ambulatory STEVE LATHAM Facility:[facility] Start: 08-19-2023 ambulatory Meka rueda [facility] Pharmacy Outpatient RX [facility] Start: 08-19-2023 Patient encounter procedure Meka Munoz [facility] Pharmacy Outpatient RX Yanci Start: 06-12-2023 End: 06-12-2023 Office outpatient visit 25 minutes Steve LEIGH Work Phone: [facility] Comment on above: 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) Start: 06-12-2023 ambulatory SELF SELF Facility:[facility] Start: 06-10-2023 ambulatory Maren Hayeney RPh,PharmD Pharmacy Outpatient RX [facility] Start: 06-10-2023 Patient encounter procedure Maren Bar RPh,PharmD Pharmacy Outpatient RX [facility] Start: 05-26-2023 ambulatory ZULY BRUNO Facility: [facility] Start: 04-28-2023 End: 04-29-[address] DOCTOR EVANS Facility:[facility] Start: 03-12-2023 ambulatory Angel Fete RPh,PharmD Pharmacy Outpatient RX Yanci Start: 03-12-2023 Patient encounter procedure Angel Fete RPh,PharmD Pharmacy Outpatient RX [facility] Start: 03-10-2023 ambulatory Angel Fete RPh,PharmD Pharmacy Outpatient RX [facility] Start: 03-10-2023 Patient encounter procedure Angel Fete RPh,PharmD Pharmacy Outpatient RX Yanci Start: 03-02-2023 End: 03-03-[address] DOCTOR EVANS Facility:[facility] Start: 01-16-2023 End: 01-16-2023 Office outpatient visit 25 minutes Daisha Max DO Work Phone: [facility] Comment on [...] MD Work Phone: [facility] Comment on above: BPH with obstruction /lower urinary tract symptoms (Primary Dx); Encounter for screening for malignant neoplasm of prostate Start: 08-28-2022 End: 08-29-2022 ambulatory ROB BRUNO Facility:[facility] Start: 08-14-2022 End: 08-15-[address] DOCTOR EVANS Facility:[facility] Start: 07-07-2022 End: 07-07-2022 Patient encounter procedure Ryan Yepez MD Work Phone: [facility] Comment on above: Other hydronephrosis (Primary Dx); [...] MD Work Phone: [facility] Comment on above: Other hydronephrosis (Primary Dx) [...] Phone: [facility] Comment on above: Immunosuppressed sta tus (Primary [...] Start: 03-14-2022 ambulatory Comfort Rivera [facility] Work Phone: Pharmacy Outpatient RX [facility] Start: 03-14-2022 Patient encounter procedure Comfort Rivera [facility] Work Phone: Pharmacy Outpatient RX [facility] Start: 06-14-2021 End: 06-14-2021 ambulatory Comfort Rivera [facility] Work Phone: [facility] Start: 06-14-2021 Patient encounter procedure Comfort Rivera [facility] Work Phone: [facility] Start: 01-20-2020 End: 01-27-2020 Patient encounter procedure PEPE CASE Facility:[facility] Start: 01-06-2020 End: 01-07-2020 Patient encounter procedure RENA GUDINO [facility] Start: 01-06-2020 End: 01-06-2020 Subsequent hospital visit by physician [facility] Start: 10-24-2019 End: 10-25-2019 Patient encounter procedure TANA CAMPA [facility] Start: 10-24-2019 End: 10-24-2019 Subsequent hospital visit by physician [facility] Start: 08-27-2019 End: 08-28-2019 Patient encounter procedure RENA GUDINO [facility] Start: 08-27-2019 End: 08-27-2019 Subsequent hospital visit by physician [facility] Start: 08-08-2019 End: 08-09-2019 Patient encounter procedure [facility] Start: 08-08-2019 End: 08-08-2019 Subsequent hospital visit by physician [facility] Start: 08-03-2019 End: 08-04-2019 Patient encounter procedure [facility] Start: 08-03-2019 End: 08-03-2019 Subsequent hospital visit by physician [facility] Start: 08-01-2019 End: 08-02-2019 Patient encounter procedure [facility] Start: 08-01-2019 End: 08-01-2019 Subsequent hospital visit by physician [facility] Start: 06-10-2019 End: 06-11-2019 [facility] Start: 06-01-2019 End: 06-02-2019 [facility] Start: 01-14-2019 End: 01-15-2019 [facility] Start: 11-17-2018 End: 11-17-2018 [facility] Comment on above: Social Work Follow-u p Start: 10-19-2018 End: 10-19-2018 Patient encounter [facility] Pre [facility] Comment on above: Cirrhosis [...] 10-13-2018 Patient encounter procedure [facility] Pre Transplant Office Comment on above: Reschedule Outside Medical Allan rds Request Start: 10-12-2018 End: 10-12-2018 Patient encounter procedure Sophie Kovatch [facility] Pre Transplant Office Comment on above: Alcoholic cirrhosis, unspecified whether ascites present (Primary Dx); Pre-transplant evaluation for liver transplant Start: 10-12-2018 End: 10-12-2018 Office outpatient new 60 minutes Alfredito Restrepo Work Phone: [facility] Pre Transplant Office Comment on above: Alcoholic cirrhosis, unspecified whether ascites present; ESRD (end stage renal disease) on dialysis; Pre-transplant evaluation for liver transplant Start: 10-06-2018 End: 10-06-2018 Patient encounter procedure Yovani Orr Work Phone: Department of Radiology Comment on above: Canceled (Insurance Company Redirected Pt) Start: 10-05-2018 Patient encounter status Comfort Rivera RPH Work Phone: [facility] Procedures Date Procedure Procedure Detail Performing [...] on above: Performed By: #### X M ####[facility] ([facility])[address] [place] [address] Start: 01-22-2024 Assay of magnesium Just in [...] Phone: Start: 01-20-2024 ITRACONAZOLE LEVEL Jennifer norbert Ortiz Alarcon [facility] Work Phone: Start: 01-20-2024 Oscillating positive [...] tion each organism Fidelina Alarcon [facility] Work Phone: Start: 01-18-2024 Echocardiography ZULY [...] AURIS SCREEN BY PCR Carol Ann Capps [employer] DEGREASER[employer]DONOR SUPPORT TECHNICIAN Work Phone: Start: 01-08-2024 ALL CBC [...] Phone: Start: 09-06-2023 Assay of magnesium Milton Kelyl MD Work Phone: Start: 09-06-2023 Hepatic function [...] Phone: Start: 09-04-2023 Hepatic function panel Evan eKlly MD Work Phone: Start: 09-03-2023 Flow cytometry [...] AURIS SCREEN BY PCR Carol Ann Capps FLAME DEGREASER-DONOR SUPPORT TECHNICIAN Work Phone: Start: 08-28-2023 CBC AND [...] on above: Performed By: #### C #### [facility] [address] [address] [address] Dwight Waters Start: 07-07-2022 Rmvl nfros tube req fluoro guidance Ryan Yepez MD Work Phone: Start: 06-27-2022 Ct abdomen & pelvis w/o contrast material Evan Byrd MD Work Phone: Start: 06-12-2022 Culture bct isol&prs mptv id isolate ea urine Steve Latham BS Work Phone: Start: 06-12-2022 EXTRA MICRO Steve S Charan i MBBS Work Phone: Start: 06-12-2022 Hemoglobin glycosylated a1c Steve Farrari BS Work Phone: Start: 06-12-2022 Hepatic function panel Yovani Orr MD Work Phone: Start: 06-12-2022 URINALYSIS REFLEX TO CULTURE Steve Latham [facility] Work Phone: Start: 05-20-2022 Urography antegrade rs&i [...] liver trans plant Comfort Rivera [facility] Work Phone: Start: 04-08-2020 H/O: liver recipient Liver tra nsplant recipient Comfort Rivera [facility] Work Phone: Start: 01-06-2020 Potassium serum [...] kidney transplant recipient Comfort Rivera [facility] Work Phone: Start: 06-10-2019 HEMOGLOBIN AND HEMAT OCRIT, BLOOD ROB KASMANI Start: 06-01-2019 Blood count hemoglobin ROB KASMANI Start: 03-22-2019 Lipid 1996 panel - S fabricio or Plasma Comfort Rivera [facility] Work Phone: Start: 01-14-2019 Potassium serum plasma/whole blood ROB JO-ANNI Start: 10-19-2018 End: 10-19-2018 Ultrasonography of abdomen Yovani Mejias Dominga Work Phone: Start: 10-12-2018 End: 10-12-2018 Blood typing serologic abo Yovani Mejias Dominga Work Phone: Start: 10-12-2018 End: 10-12-2018 Hemoglobin glycosylated a1c Yovani Mejias Dominga Work Phone: Start: 10-12-2018 End: 10-12-2018 25 hydroxy includes fractions if performed Yovani Orr Work Phone: Start: 10-12-2018 End: 10-12-2018 Albumin serum plasma/whole blood Yovani Mejias Josephannie Work Phone: Start: 10-12-2018 End: 10-12-2018 Alpha-fetoprotein serum Yovani Mejias Josephannie Work Phone: Start: 10-12-2018 End: 10-12-2018 Antibody [...] Screening for malignant neoplasm of colon [facility] Start: 03-28-2025 Potassium [Moles/volume] in Serum or Plasma POTASSIUM [facility] Start: 03-21-2025 Potassium [Moles/volume] in Serum or Plasma POTASSIUM [facility] Start: 02-28-2025 Potassium [Moles/volume] in Serum or Plasma POTASSIUM [facility] Start: 01-23-2025 Potassium [Moles/volume] in Serum or Plasma POTASSIUM [facility] Start: 08-31-2024 Screening for malignant neoplasm of lung [facility] Start: 06-17-2024 End: 06-17-2024 ambulatory [facility] Start: 06-17-2024 End: 06-17-2024 Patient encounter procedure [facility] Start: 03-22-2024 Fasting lipid profile LIPID SCREENING [facility] Start: 03-22-2024 Lipid panel [facility] Start: 02-26-2024 End: 02-26-2024 Patient encounter procedure 02/26/2024 9:30 AM EDT Office Visit [facility] [address] [place] [address] Candie Almaguer MD [address] [place] [address] [facility] Start: 02-11-2024 End: 02-11-2024 Patient encounter procedure 02/11/2024 10:30 AM EDT Office Visit [facility] [address] [place] [address] Zuly Bruno NP [address] [place] [address] [facility] Start: 02-09-2024 End: 02-09-2024 Telemedicine consultation with patient 02/09/2024 3:30 PM EDT Telemedicine Infectious Diseases Care [facility] [address] [facility] [address] [place] [phone] Hakeem Alamo MD [id number] [facility] Start: 01-15-2024 End: 01-15-2024 ambulatory [facility] Start: 01-15-2024 End: 01-15-2024 Patient encounter procedure [facility] Start: 01-06-2024 End: 01-06-2026 Echocardiogram 2D complete Echocardiogram 2D complete Echocardiography Routine DARLENE (obstructive sleep apnea) Primary hypertension (CMS/HCC) Bilateral lower extremity edema Shortness of breath Expected: 01/06/2024 (Approximate), Expires: 01/06/2026 [facility] Work Phone: Comment on above: Expected: 01/06/2024 (Approximate), Expi res: 01/06/2026 Start: 01-06-2024 End: 01-06-2024 Patient encounter procedure 01/06/2024 9:00 AM EST Office Visit [facility] [address] [place] [address] Zuly Bruno, BA [address] [place] [address] [facility] Start: 12-08-2023 End: 09-07-2024 CT Chest WO contrast [facility] Work Phone: Start: 12-01-2023 COVID-19 VACCINE (2 - Moderna risk series) COVID-19 VACCINE (2 - Moderna risk series) [facility] Start: 09-23-2023 End: 09-23-[address] [facility] Start: 09-23-2023 End: 09-23-2023 Telemedicine consultation with patient 09/23/2023 4:00 PM EDT Telemedicine Infectious Diseases Care [facility] [address] [place] [phone] Hakeem Alamo MD [address] [facility] [address] [place] [address] [facility] Start: 09-15-2023 End: 09-10-2024 ITRACONAZOLE LEVEL [facility] Start: 08-25-2023 End: 08-25-2024 ALLOSCREEN RECIPIENT (POST TX PRA) ALLOSCREEN RECIPIENT (POST TX PRA) Lab Routine Kidney replaced by transplant Aftercare following organ transplant Immunosuppressed status High risk medication use Other general symptoms and signs Abnormal blood chemistry Expected: 08/25/2023, Expires: 08/25/2024 [facility] Comment on above: Expected: 08/25/2023, Expires: Start: 07-31-2023 Influenza vaccination [facility] Start: 06-12-2023 End: 06-12-2023 Patient encounter procedure 06/12/2023 Office Visit Transplant Surgery Steve Latham MBBS [address] [place] [phone] [facility] Start: 03-11-2023 End: 03-11-2023 Telemedicine consultation with patient 03/11/2023 Telemedicine Urology Ryan Yepez MD [address] [facility] [address] [place] [address] [facility] Start: 01-16-2023 End: 01-16-2023 Patient encounter procedure 01/16/2023 Office Visit Transplant Surgery [facility] Start: 10-31-2022 End: 10-31-2022 Patient encounter procedure 10/31/2022 Office Visit Transplant Surgery Steve Latham MBBS [address] [place] [phone] [facility] Start: 09-10-2022 End: 09-10-2023 PSA screening PSA, SCREENING Lab Routine BPH with obstruction/lower urinary tract symptoms Encounter for screening for malignant neoplasm of prostate Expected: 09/10/2022 (Approximate), Expires: 09/10/2023 [facility] Comment on above: Expected: 09/10/2022 (Approximate), Expi res: 09/10/2023 Start: 08-11-2022 End: 08-11-2022 Patient encounter procedure 08/11/2022 Office Visit Urology Ryan Yepez MD [address] [facility] [address] [place] [address] [facility] Start: 07-31-2022 Influenza vaccination [facility] Start: 07-07-2022 End: 07-07-2022 Patient encounter procedure 07/07/2022 Office Visit Ryan Webster MD [address] [facility] [address] [place] [address] [facility] Start: 07-07-2022 End: 07-07-2023 FLUORO IMAGING FOR UROLOGY [facility] Comment on above: Expected: 07/07/2022, Expires: 3 1 Occurrences starti ng 07/07/2022 until 07/07/2022 Start: 06-27-2022 End: 06-27-2022 Patient encounter procedure 06/27/2022 Office Visit Urology Ryan Yepez MD [address] [facility] [address] [place] [address] [facility] [place] Start: 06-27-2022 End: 06-27-2023 Basic metabolic 2000 panel - Serum or Plasma BASIC METABOLIC PANEL Lab Routine Other hydronephrosis Expected: 06/27/2022, Expires: 06/27/2023 [facility] Comment on above: Expected: 06/27/2022, Expires: Start: 06-27-2022 End: 06-27-2022 Patient encounter procedure 06/27/2022 Appointment Computerized Tomography Scan Ryan Yepez MD [address] [place] [address] [address] [place] [address] Department of Radiology Start: 06-15-2022 End: 05-16-2023 CT Abdomen and Pelvis WO contrast CT ABDOMEN/PELVIS WITHOUT CONTRAST Imaging Routine FAYE (acute kidney injury) Expected: 06/15/2022 (Approximate), Expires: 05/16/2023 [facility] Work Phone: Comment on above: Expected: 06/15/2022 (Approximate), Expi res: 05/16/2023 Start: 06-12-2022 End: 06-12-2022 Patient encounter procedure 06/12/2022 Office Visit Transplant Surgery Steve Latham MBBS [address] [place] [address] [facility] Start: 06-11-2022 End: 06-11-2023 BK VIRUS DNA QN, PCR, PLASMA BK VIRUS DNA QN, PCR, PLASMA Lab Routine Kidney replaced by transplant Liver replaced by transplant Abnormal blood chemistry Expected: 06/11/2022, Expires: 06/11/2023 [facility] Comment on above: Expected: 06/11/2022, Expires: Start: 06-04-2022 End: 06-04-2022 Patient encounter procedure 06/04/2022 Office Visit Interventional Radiology [facility] Start: 10-18-2021 End: 10-18-2021 Patient encounter procedure 10/18/2021 Office Visit Transplant Surgery Steve Latham MBBS [address] [place] [address] [facility] Start: 07-31-2021 Influenza vaccination INFLUENZA VACCINE (#1) [facility] Start: 07-26-2021 End: 07-26-2021 Patient encounter procedure 07/26/2021 Office Visit Transplant Surgery [facility] Start: 2021 Prostate specific antigen measurement [facility] Start: 2021 Screening for malignant neoplasm of lung LUNG CANCER SCREENING [facility] Start: 2021 Zoster vaccine hzv live for subcutaneous use ZOSTER (SHINGLES) VACCINE (1 of 2) [facility] Start: 09-20-2020 Colonoscopy COLORECTAL CANCER SCREENING DISCUSSION [facility] Start: 09-20-2020 Screening for malignant neoplasm of colon [facility] Start: 07-31-2019 Influenza vaccination Flu vaccine (#1) [place] Start: 05-22-2019 Annual Wellness Visit (AWV) Annual Wellness Visit (AWV) [place] Start: 04-18-2019 End: 10-19-2019 Ultrasonography of abdomen US ABDOMEN RUQ/LIVER/GB Routine Cirrhosis of liver without ascites, unspecified hepatic cirrhosis type Expected: 04/18/2019 (Approximate), Expires: 10/19/2019 [facility] Work Phone: Comment on above: Expected: 04/18/2019 (Approximate), Expi res: 10/19/2019 Start: 01-25-2019 End: 01-25-2019 Ambulatory 01/25/2019 Office Visit Gastroenterology Christin Elizabeth, FLAME DEGRE[employer]ER-PERSONAL FITNESS MANAGER [address] [place] [address] Division of Gastroenterology and Hepatology Gavin Start: 11-19-2018 End: 11-19-2018 Ambulatory 11/19/2018 Appointment Pulmonary Diagnostics [facility] Start: 11-19-2018 End: 11-19-2018 Ambulatory [facility] Start: 10-19-2018 End: 10-19-2018 Ambulatory Ultrasound Jakob Start: 10-12-2018 End: 10-12-2019 Hemoglobin A1c/Hemoglobin.total mass fraction (Bld) HEMOGLOBIN A1C Routine Alcoholic cirrhosis, unspecified whether ascites present Pre-transplant evaluation for liver transplant Expected: 10/12/2018, Expires: 10/12/2019 [facility] Work Phone: Comment on above: Expected: 10/12/2018, Expires: 9 Start: 10-12-2018 End: 10-12-2019 TYPE AND SCREEN - NOT FOR TRANSFUSION TYPE AND SCREEN - NOT FOR TRANSFUSION Routine Alcoholic cirrhosis, unspecified whether ascites present Pre-transplant evaluation for liver transplant Expected: 10/12/2018, Expires: 10/12/2019 [facility] Work Phone: Comment on above: Expected: 10/12/2018, Expires: 9 Start: 07-31-2018 Influenza vaccination INFLUENZA VACCINE (#1) [facility] Work Phone: Start: 2011 Fasting lipid profile LIPID SCREENING [facility] Work Phone: Start: 2011 Lipid screen Lipid screen [place], [place] Start: 1990 DTaP/Tdap/Td vaccine (1 - Tdap) DTaP/Tdap/Td vaccine (1 - Tdap) [place] Start: 1990 Hepatitis B vaccination HEP B VACCINE (1 of 3 - 19+ 3-dose series) [facility] Start: 1990 Hepatitis B Vaccine (1 of 3 - Risk Recombivax 3-dose series) Hepatitis B Vaccine (1 of 3 - Risk Recombivax 3-dose series) [place] Start: 1990 Third diphtheria, tetanus and acellular pertussis (DTaP) vaccination [facility] Start: 1990 Zoster vaccine hzv live for subcutaneous use ZOSTER (SHINGLES) VACCINE (1 of 2) [facility] Start: 1990 [facility] Start: 1989 Tetanus vaccination TETANUS [facility] Start: 1986 HIV screen HIV screen [place], [place] Start: 02-17-1984 HIV screening HIV SCREENING DISCUSSION [facility] Work Phone: Start: 1983 COVID-19 VACCINE (1) COVID-19 VACCINE (1) [facility] Start: 1982 DTaP/Tdap/Td vaccine (1 - Tdap) DTaP/Tdap/Td vaccine (1 - Tdap) [place] Start: 1977 Pneumococcal 0-64 years Vaccine (1 of 3 - PCV13) Pneumococcal 0-64 years Vaccine (1 of 3 - PCV13) [place] Start: 1977 PNEUMOCOCCAL VACCINE SERIES (1 - PCV) PNEUMOCOCCAL VACCINE SERIES (1 - PCV) [facility] Start: 1977 PNEUMOCOCCAL VACCINE SERIES (1 of 2 - PCV) PNEUMOCOCCAL VACCINE SERIES (1 of 2 - PCV) [facility] Start: 1977 [facility] Start: 02-17-1976 COVID-19 VACCINE (#1) COVID-19 VACCINE (#1) [facility] Start: 02-17-1976 [facility] Start: 1971 COVID-19 VACCINE (#1) COVID-19 VACCINE (#1) [facility] Start: 1971 Hepatitis B vaccination HEP B VACCINE (1 of 3 - 3-dose series) [facility] Start: 1971 Medicare Annual Wellness (AWV) Medicare Annual Wellness (AWV) [facility] Start: 1971 Screening for malignant neoplasm of colon [facility] Start: 1971 Tetanus vaccination [facility] BK VIRUS DNA QN, PCR , PLASMA BK VIRUS DNA QN, PCR, PLASMA Lab Routine Kidney replaced by transplant Liver replaced by transplant Abnormal blood chemistry 06/12/2022 3:38 PM EDT [facility] CALCULI, URINARY (KIDNEY STONE) CALCULI, URINARY (KIDNEY STONE) Fluids Routine 05/19/2022 8:16 AM EDT [facility] Work Phone: CANNABINOIDS, QUANT (URINE)THC CONFIRMATION CANNABINOIDS, QUANT (URINE)THC CONFIRMATION Routine Alcoholic cirrhosis, unspecified whether ascites present ESRD (end stage renal disease) on dialysis Pre-transplant evaluation for liver transplant 10/12/2018 12:57 PM [facility] Work Phone: End: 09-10-2024 CHEM 6 (LYTES, BUN CREA) [facility] EBV VCA IGG AB EBV VCA IGG AB R outine Alcoholic cirrhosis, unspecified whether ascites present ESRD (end stage renal disease) on dialysis Pre-transplant evaluation for liver transplant 10/12/2018 12:57 PM [facility] Work Phone: Fungus identified in Unspecified specimen by Culture [facility] HLA TYPING (SOLID ORGAN) HLA TYPING (SOLID ORGAN) Routine Alcoholic cirrhosis, unspecified whether ascites present ESRD (end stage renal disease) on dialysis Pre-transplant evaluation for liver transplant 10/12/2018 12:57 PM [facility] Work Phone: HSV 1 AND 2 IGG ANTIBODY HSV 1 AND 2 IGG ANTIBODY Routine Alcoholic cirrhosis, unspecified whether ascites present ESRD (end stage renal disease) on dialysis Pre-transplant evaluation for liver transplant 10/12/2018 12:57 PM [facility] Work Phone: 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 specific culture [facility] PLACEMENT NEPHROSTOM Y CATHETER PERCUTANEOUS W/ IMAGE GUIDANCE PLACEMENT NEPHROSTOMY CATHETER PERCUTANEOUS W/ IMAGE GUIDANCE Imaging Routine Hydronephrosis due to obstruction of ureteral orifice FAYE (acute kidney injury) 05/17/2022 11:08 AM EDT [facility] AZ POST VOID RESIDUAL AZ POST VO ID RESIDUAL AZ - OFFICE PERFORMED Routine BPH with obstruction/lower urinary tract symptoms Ordered: 09/10/2022 [facility] Comment on above: Ordered: 09/10/2022 PTH INTACT PTH INTACT Routi ne Alcoholic cirrhosis, unspecified whether ascites present ESRD (end stage renal disease) on dialysis Pre-transplant evaluation for liver transplant 10/12/2018 12:57 PM [facility] Work Phone: RUBEOLA IGG AB (IMMU NE STATUS) RUBEOLA IGG AB (IMMUNE STATUS) Routine Alcoholic cirrhosis, unspecified whether ascites present ESRD (end stage renal disease) on dialysis Pre-transplant evaluation for liver transplant 10/12/2018 12:57 PM [facility] Work Phone: End: 01-16-2024 Standard ECG ECG ECG Routine One Time for 1 Occurrences starting 01/16/2024 until 01/16/2024 [facility] Comment on above: One Time for 1 Occurrences starting 12/31 until 01/16/2024 End: 09-10-2024 TACROLIMUS LEVEL, TROUGH (PRE DRUG LEVEL) [facility] VARICELLA IGG AB (IM M STATUS) VARICELLA IGG AB (IMM STATUS) Routine Alcoholic cirrhosis, unspecified whether ascites present ESRD (end stage renal disease) on dialysis Pre-transplant evaluation for liver transplant 10/12/2018 12:57 PM [facility] Work Phone: Immunizations Immunization Date Immunization Notes Care Provider Zeeshan yi 11-03-2023 influenza virus vacc ine, unspecified formulation Generic Provider [facility] 11-03-2023 Moderna SARS-CoV-2 50mcg/0.5mL Booster Generic Provider [facility] Payers Date Payer Category Payer Unknown [id number] 2019 Unknown [facility] [id number] 2019-Present [id number] 2018 [place] [facility] DEPT OF JOB xxxxxxxxxxxx 2018-Present [phone] [address] [place] [address] xxxxxxxxxxxx [id number] 2018 Medicaid MEDICAID MEDICAI D [id number] 2018-Present [address] [place] [address] [id number] .[id number] 2018 Medicaid [id number] [id number] .[id number] 2018 Medicare MEDICARE MEDICAR E PART A AND B xxxxxxxxxxx 2018-Present [phone] [address] [address] [place] [address] xxxxxxxxxxx [id number] .[id number] 2018 Medicare [id number] 2018 Medicare MEDICARE MEDICAR E A AND B [id number] 2018-Present [address] [place] [address] [id number] .[id number] 2018 Medicare [id number]. 1.13.172.2.7.3 .165172.315 1971 Unknown [id number] 2.16.840.1.176766.3.579.2.173 1971 Unknown [id number] 2.16.840.1.962504.3.579.2.173 1971 Unknown [id number] 2.16.840.1.297905.3.579.2.173 1971 Unknown [id number] 2.16.840.1.756383.3.579.2.173 1971 Unknown [id number] 2.16.840.1.008649.3.579.2.173 1971 Unknown [id number] 2.16.840.1.239695.3.579.2.173 1971 Unknown [id number] 2.16.840.1.226875.3.579.2.173 1971 Unknown [id number] 2.16.840.1.715306.3.579.2.173 1971 Unknown [id number] 2.16.840.1.377112.3.579.2.647 1971 Unknown [id number] 2.16.840.1.265426.3.579.2.593 1971 Unknown [id number] 2.16.840.1.106356.3.579.2.593 1971 Unknown [id number] 2.16.840.1.030602.3.579.2.593 1971 Unknown [id number] 2.16.840.1.705569.3.579.2.593 1971 Unknown [id number] 2.16.840.1.860092.3.579.2.593 1971 Unknown [id number] 2.16.840.1.329428.3.579.2.593 1971 Unknown [id number] 2.16.840.1.952401.3.579.2.593 1971 Unknown [id number] 2.16.840.1.302228.3.579.2.593 1971 Unknown [id number] 2.16.840.1.877482.3.579.2.593 1971 Unknown [id number] 2.16.840.1.312364.3.579.2.593 1971 Unknown [id number] 2.16.840.1.185191.3.579.2.593 1971 Unknown [id number] 2.16.840.1.885110.3.579.2.593 1971 Unknown [id number] 2.16.840.1.112504.3.579.2.593 1971 Unknown [id number] 2.16.840.1.839969.3.579.2.593 1971 Unknown [id number] 2.16.840.1.318483.3.579.2.593 1971 Unknown [id number] 2.16.840.1.344266.3.579.2.125 9 1971 Unknown [id number] 2.16.840.1.404935.3.579.2.125 9 1971 Unknown [id number] 2.16.840.1.768077.3.579.2.125 9 1971 Unknown [id number] 2.16.840.1.363912.3.579.2.125 9 1971 Unknown [id number] 2.16.840.1.555655.3.579.2.125 9 1971 Unknown [id number] 2.16.840.1.971582.3.579.2.125 9 1971 Unknown [id number] 2.16.840.1.290748.3.579.2.125 9 1971 Unknown [id number] 2.16.840.1.156170.3.579.2.125 9 1971 Unknown [id number] 2.16.840.1.897530.3.579.2.125 9 1971 Unknown [id number] 2.16.840.1.062910.3.579.2.125 9 1971 Unknown [id number] 2.16.840.1.664868.3.579.2.125 9 1971 Unknown [id number] 2.16.840.1.552777.3.579.2.125 9 1971 Unknown [id number] 2.16.840.1.706350.3.579.2.125 9 1971 Unknown [id number] 2.16.840.1.142353.3.579.2.125 9 1971 Unknown [id number] 2.16.840.1.230341.3.579.2.594 1971 Unknown [id number] 2.16840.1.971660.3.579.2.594 1971 Unknown [id number] 2.840.1.862973.3.579.2.594 1971 Unknown [id number] 2.840.1.009527.3.579.2.594 1971 Unknown [id number] 2.16.840.1.213639.3.579.2.594 1971 Unknown [id number] 2.16.840.1.144335.3.579.2.594 1971 Unknown [id number] 2.16.840.1.500217.3.579.2.594 1971 Unknown [id number] 2.16.840.1.061375.3.579.2.594 1971 Unknown [id number] 2.16.840.1.812684.3.579.2.594 1971 Unknown [id number] 2.16.840.1.953886.3.579.2.594 1971 Unknown [id number] 2.16.840.1.604894.3.579.2.594 1971 Unknown [id number] 2.16.840.1.611077.3.579.2.594 1959 Medicaid [id number] 1959 Medicare [id number] Social History Date Type Detail Facility Start: 07-19-2018 End: 10-19-2018 Tobacco smoking status NHIS Former smoker [facility] Start: 07-19-1988 End: 05-14-2018 History of tobacco use Current smoker [facility] Work Phone: Start: 07-19-1988 End: 05-14-2018 History of tobacco use Cigarette Smoker [facility] Work Phone: Start: 10-19-2018 End: 03-24-2024 Cigarettes smoked current (pack per day) - Reported [facility] End: 07-19-1994 History of tobacco use Chews Tobacco [facility] Work Phone: Start: 1971 Sex Assigned At Not on file [facility] Work Phone: Start: 11-03-2018 Alcohol intake Current non-drinker of alcohol (finding) [place] Start: 06-22-2018 Alcohol Comment Hx of alcoholism [place] Start: 11-03-2018 End: 03-24-2024 Alcohol intake No [facility] Start: 07-19-2018 Tobacco use and exposure Former user [facility] Start: 09-06-2020 End: 03-24-2024 Alcohol intake Ex-drinker (finding) [facility] Start: 07-19-2018 Alcohol Comment stopped 05/14/2018 [facility] Start: 05-05-2022 End: 01-16-2023 Exposure to SARS-CoV-2 (event) Not sure [facility] Start: 07-07-2018 Gender identity Identifies as male gender (finding) [facility] Start: 01-16-2022 Sexual orientation Heterosexual (finding) [facility] Start: 11-03-2023 Tobacco use and exposure [...] Dates [id number] Start: 05-23-2020 [id number] Start: 04-12-2020 [id number] [facility] Start: 05-17-2022 Comment on above: Description: Implant time-out completed by intra-procedural staff including this RN, machine maintenance technician, and performing physician. The following was completed. RN reads out loud implant type/size/ expiration date, and verbalizes location. Holds package up to tech to visually verify implant details. Tech reads back package details MD verifies verbally correct implant Time-out was completed for each coil during embolization, if applicable. Goals Date Patient Goal Desired Activity /State Personal health goal Clinical Notes 06-14-2021 to 05-13-2024 Melody Aissatou - 03/24/2024 4:12 PM EDTTaylor Butler - 03/24/2024 4:12 PM EDTGabbi Rajput - 03/24/2024 4:12 PM EDTRosalchaya Aissatou - 03/24/2024 4:12 PM EDTTaylor Butler - 03/24/2024 4:12 PM EDTAttachments Note Date & Type Note Facility 05-13-2024 Note PA Cardiology - [facility] Subjective George Styles is a 54 y.o. year old male patient being seen for Follow-up (Yearly follow up ) Patient Active Problem List Diagnosis Acute megaloblastic [...] Use Topics Alcohol use: Not Currently HPI Goerge is seen in follow up. He is a 54 yo man with history of ESRD was on HD and now is s/p renal transplant 04/13/2020 at [facility]. He also had alcoholic liver cirrhosis and had a liver transplant at the same time of the renal transplant. In 2018 he had severe anemia and mild troponin elevation and abnormal stress test. The elevated troponin was thought related to supply demand mismatch. He had a coronary angiogram prior to that at [facility] that did not show signficant obstructive disease. He was admitted in December 2023 to [facility] with decompensated heart failure. His echocardiogram showed preserved ventricular systolic function with concentric LVH and he had elevated BNP. He underwent a right heart catheterization showing elevated filling pressures and those improved with occlusion of the AV fistula. Cardiac output was mildly elevated. He then underwent ligation of the large AV fistula. At that time he had moderate pericardial effusion. He has been doing well. No chest pain. He reports no leg swelling. He has no palpitations. No dizziness or lightheadedness. No shortness of breath. Review of Systems All other systems reviewed and are negative. Objective Visit Vitals BP 138/80 (BP Location: Right arm, Patient Position: Sitting, BP Cuff Size: Adult) Pulse 54 Resp 12 Ht 1.702 m (5' 7 ) Wt 99.8 kg (220 lb) SpO2 98% BMI 34.46 kg/m??? Smoking Status Former BSA 2.17 m??? Physical Exam Constitutional: Appearance: He is [...] Behavior is cooperative. Judgment: Judgment normal. Allergies Allergies Allergen Reactions Shellfish Derived Swelling Patient with lip and tongue swelling. Medications Current Outpatient Medications: allopurinol (Zyloprim) 100 mg tablet, allopurinol 100 mg tablet take 2 tablets by mouth once daily, Disp: , Rfl: amLODIPine (Norvasc) 5 mg tablet, Take 5 mg by mouth in the morning., Disp: , Rfl: aspirin 81 mg EC tablet, in the morning., Disp: , Rfl: famotidine (Pepcid) 20 mg tablet, Take 20 mg by mouth twice a day., Disp: , Rfl: gabapentin (Neurontin) 400 mg capsule, gabapentin 400 mg capsule take 1 capsule by mouth at bedtime, Disp: , Rfl: melatonin 3 mg tablet, [...] mouth in the morning., Disp: , Rfl: t (more content not included)... [facility] 03-24-2024 History of Present illness Narrative [facility] RX OUTREACH ADVANCED: Call Information: Date and Time of Contact: 03/24/2024 4:14 PM Method of Contact: By Phone Contact Type: Prescriptions Contactor: [facility] OP Contactee: Patient Contact Outcome: Left message Shipping/Pickup: Medication Name: Prograf 0.2mg pack Contact Info: Specialty ([place]) [phone] [facility] [phone] [facility] [phone] David [phone] Bedside Delivery ([facility]) [phone] [facility] OP RX OUTREACH ADVANCED: Call Information: Date and Time of Contact: 03/28/2024 3:58 PM Method of Contact: By Phone Contact Type: Prescriptions Contactor: [facility] OP Contactee: Patient Contact Outcome: Left message and Call back later Shipping/Pickup: Medication Name: Mycophenolate, prograf Contact Info: Specialty ([place]) [phone] [facility] [phone] [facility] [phone] David [phone] Bedside Delivery ([facility]) [phone] [facility] OUTREACH ADVANCED: Call Information: Method of Contact: By Phone Contact Type: Prescriptions Contactor: Patient Contactee: [facility] OP Shipping/Pickup: Medicare B Refill?: No Medication Name: Mycopheolate 360mg and Prograf Delivery Method: Ship Delivery Location: Home Signature Required: No Receive/Pickup Date: 04/04/2024 Shipping Address: [address] [place] [address] [address] Contact Info: Specialty ([place]) [phone] [facility] [phone] [facility] [phone] David [phone] Bedside Delivery ([facility]) [phone] documented in this encounter [facility] 03-24-2024 History of Present illness Narrative [facility] RX OUTREACH ADVANCED: Call Information: Date and Time of Contact: 03/24/2024 4:14 PM Method of Contact: By Phone Contact Type: Prescriptions Contactor: [facility] OP Contactee: Patient Contact Outcome: Left message Shipping/Pickup: Medication Name: Prograf 0.2mg pack Contact Info: Specialty ([place]) [phone] [facility] [phone] [facility] [phone] David [phone] Bedside Delivery ([facility]) [phone] [facility] RX OUTREACH ADVANCED: Call Information: Date and Time of Contact: 03/28/2024 3:58 PM Method of Contact: By Phone Contact Type: Prescriptions Contactor: [facility] OP Contactee: Patient Contact Outcome: Left message and Call back later Shipping/Pickup: Medication Name: Mycophenolate, prograf Contact Info: Specialty ([place]) [phone] [facility] [phone] [facility] [phone] David [phone] Bedside Delivery ([facility]) [phone] [facility] RX OUTREACH ADVANCED: Call Information: Method of Contact: By Phone Contact Type: Prescriptions Contactor: Patient Contactee: [facility] OP Shipping/Pickup: Medicare B Refill?: No Medication Name: Mycopheolate 360mg and Prograf Delivery Method: Ship Delivery Location: Home Signature Required: No Receive/Pickup Date: 04/04/2024 Shipping Address: [address] [place] [address] [address] Contact Info: Specialty ([place]) [phone] [facility] [phone] [facility] [phone] David [phone] Bedside Delivery ([facility]) [phone] [facility] RX OUTREACH ADVANCED: Pre-Verification/Specialty Assessment/Disease [...] Within normal limits Contact Info: Specialty ([place]) [phone] Jakob [phone] [facility] [phone] David [phone] Bedside Delivery ([facility]) [phone] documented in this encounter [facility] 03-02-2024 History of Present illness Narrative [...] del of broth Contact Info: Specialty ([place]) [phone] [facility] [phone] [facility] [phone] David [phone] Bedside Delivery ([facility]) [phone] [facility] RX OUTREACH ADVANCED: Call Information: Date and Time of Contact: 03/02/2024 3:49 PM Method of Contact: By Phone Contact Type: Prescriptions Contactor: [facility] OP Contactee: Patient Contact Outcome: Left message and Follow-up Shipping/Pickup: Medication Name: Myco 360mg and Prograf 0.2mg Contact Info: Specialty ([place]) [phone] [facility] [phone] [facility] [phone] David [phone] Bedside Delivery ([facility]) [phone] [facility] RX OUTREACH ADVANCED: Call Information: Date and Time of Contact: 03/02/2024 4:08 PM Method of Contact: By Phone Contact Type: Prescriptions Contactor: [facility] OP Contactee: Patient Shipping/Pickup: Medicare B Refill?: No Medication Name: Myco 360 / prograf 0.2 Delivery Method: Ship Delivery Location: Home Signature Required: No Receive/Pickup Date: 03/03/2024 Shipping Address: [address] [place] [address] [address] Contact Info: Specialty ([place]) [phone] [facility] [phone] [facility] [phone] David [phone] Bedside Delivery ([facility]) [phone] documented in this encounter [facility] 02-26-2024 History of Present illness Narrative [...] the HF Clinic at the [facility] on 02/26/2024 for initial evaluation [...] Left; Surgeon: Jyoti Bryant MD, PhD; Location: [facility] MAIN OR PLACEMENT NEPHROSTOMY CATHETER PERCUTANEOUS W/ IMAGE GUIDANCE 05/17/2022 Surgeon: Enzo Heart DO; Location: [facility] INTERVENTIONAL RADIOLOGY (VIR) LIVER TRANSPLANT, ORTHOTOPIC N/A 04/12/2020 Laterality: N/A; Surgeon: LU Palma; Location: [facility] SAME DAY SURGERY MAIN OR KIDNEY TRANSPLANT W/O HOLY CROSS NEPHRECTOMY N/A 04/12/2020 Laterality: N/A; Surgeon: LU Palma; Location: [facility] SAME DAY SURGERY MAIN OR [...] qd Antithrombotic: no Statin: no ICD: NA LABORER LIVESTOCK: NA CV Test results: ECHOCARDIOGRAM 01/18/2024 (Final) Interpretation Summary Left Ventricle: Chamber size is normal. Increased wall thickness. Concentric hypertrophy. Normal global systolic function. Regional wall motion is normal. Ejection fraction is normal (55 - 60%). Right Ventricle: Chamber size is normal. Systolic function is low normal. No hemodynamically significnat valve disease. Moderate pericardial effusion. There is no evidence of tamponade. [facility] (01/20/24) Hemodynamic Summary: Baseline Hemodynamics Systemic [...] will be BP control. Candie Almaguer M.D. rod mill tender Advanced Heart Failure Program Division of Cardiovascular Medicine [facility] [email or web address] ph [phone] fax [phone] documented in this encounter [facility] 02-26-2024 Instructions Marsha Mckeon RN - 02/26/2024 9:30 AM EDT The following instructions were given today: Labs today Follow up with Dr. Almaguer as needed. Your after visit summary (AVS) is viewable in [facility] My Chart. Call RN if you have cardiac questions/concerns M-F 8 to 4:30 ; office # [phone], option 6, then option 2. Guidelines for home management: 1. Continue to monitor weight first thing each morning. 2. Report to the CHF CLINIC ([phone]) any significant weight change. Remember that weight [...] to have labs/tests run outside of the [facility] and you do not hear from us 1-2 days after they are performed, you must call us to ensure we received the results. Office fax # [phone]. No news does not necessarily mean that your tests are normal, it could mean we did not get the results. For questions/updates: please provide your name with spelling, date of and question or update All calls are prioritized and responses researched, if possible, prior to calls being returned. Call Scheduling for any appointment/procedure verification or changes [phone], option 7 or [facility] Heart Schedulers at [phone], option 1. documented in this encounter [facility] 01-23-2024 Nurse Note Jakob wrap & [...] understanding on picking up needed prescriptions at [facility] as listed on discharge summary. Patient denies any unanswered questions at this time. Patient has been discharged with all of their belongings, transported via wheelchair on oxygen to front entrance for brother to transport home on home oxygen supply. [facility] 01-23-2024 Miscellaneous Notes Jakob wrap & [...] understanding on picking up needed prescriptions at [facility] pharmacy as listed on discharge summary. Patient [...] Pain): verbalization of pain descriptors George Styles ([id number]) PRE OPERATIVE DIAGNOSIS High output congestive heart failure [I50.83] POST OPERATIVE DIAGNOSIS Post-Op Diagnosis Codes: * High output congestive heart failure [I50.83] PROCEDURE PERFORMED Procedure(s) (LRB): LIGATION ANGIOACCESS AVF (Left) Resection of large aneurysmic vein PRIMARY CLOSURE Yes INTRAOPERATIVE FINDINGS No significant abnormalities SURGEON Surgeons and Role: * Jyoti Bryant MD, PhD - Primary ANESTHESIOLOGIST Anesthesiologist: Celena Tiwari MD; Kehinde Gutierrez MD HULL BUILDER: David Jasso APRN-HULL BUILDER Sports Bookmaker Assisting: Mini Khan MD SURGICAL STAFF Associate Buyer: Zoila Lawrence RN Relief Associate Buyer: Marimar Saravia RN Relief Scrub: Briseyda Self [...] Axillary block. SURGEON(S): Jyoti Bryant MD, PHD RADIO PRODUCER: Mynor Fall MD ESTIMATED BLOOD LOSS: Minimal. [...] Jyoti Bryant MD, PHD ATTENDING SHANNON/Constanza JOB: [id number] DOC: [id number] Patient has been asleep this shift. He [...] overnight coverage, Jasper Gastelum MD, via pager #[phone] Pt- Mark. Sarah Styles [phone]. TM1. Was wondering if he can have his Melatonin order increased to 6mg. Per pt, he usually takes 8mg at home. -SAMI Duffy #[phone] Tati Charles RN Internal Medicine Daily Progress Note Patient: George Styles, 1970, [id number] Physician: Arelis Mera MD, PGY3, Pager #[phone], TM1 service Assessment/Plan: George Styles is a [...] home amlodipine 5mg CAD: non-obstructive CAD on [facility] 2018. - continue home aspirin 81mg [...] Mera MD Mr. Styles was admitted to [address] [place] [address]. On admission to [facility], from outside facility a dual RN initial assessment of skin condition was performed by Izzy Gutierrez RN and Leroy Singleton RN. Skin Assessment: Skin within defined limits:Yes Jose Score: 20 Wound Vision Fluid Jet Cutter Operator images obtained: No LDA Added: No [...] station when available. documented in this encounter [facility] 01-23-2024 Nurse Note Home Oxygen Qualification [...] at 4L of oxygen is also required.) [facility] 01-23-2024 History of Present illness Narrative [...] mg Oral Daily Kelvin Pacheco MD, MBBS ceramic engineering professor Transplant nephrology Surgery Post-Op Check Note [...] monitor Leonel Harris DO General Surgery Pager [phone] CM went to bedside to talk with patient. Patient states he has home oxygen through [employer]. He uses 2.5 LNC around the clock. Patient states his brother will bring a tank for discharge. Anticipate patient will discharge tomorrow AM. Brother updated. Girish Oro RN, BSN Clinical Hog Killer Please note that I am a float family service caseworker and may not cover the same service every day. Please call the main Case Management office at [phone] for up-to-date coverage. Verified patients identity using [...] Daily Progress Note Patient: George Styles, 1970, [id number] Physician: Yury Ozuna MD, PGY1, Pager #[phone], TM1 service Assessment/Plan: George Styles is a 53 y.o. 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 - continue home aspirin 81mg [...] with the Nutrition plan outlined in the Cable Repairer s note. DVT prophylaxis with lovenox Diet [...] in resident note. Kelvin Pacheco MD, MBBS ceramic engineering professor Transplant nephrology Patient seen and examined [...] Oral BID AC Kelvin Pacheco MD, MBBS ceramic engineering professor Transplant nephrology Images from the original note were not included. Internal Medicine Daily Progress Note Patient: George Styles, 1970, [id number] Physician: Yury Ozuna MD, PGY1, Pager #[phone], TM4 service Assessment/Plan: George Styles is a 53 [...] home amlodipine 5mg CAD: non-obstructive CAD on [facility] 2018. - continue home aspirin 81mg [...] with the Nutrition plan outlined in the Cable Repairer s note. DVT prophylaxis with lovenox Diet [...] Device: room air (01/20/24805) Flow (L/min): 2 (01/19/24899) Gen: NAD HENT: [...] further questions. Name: Heidy Chatman Phone #: [phone] Date/Time: 01/19/2024 12:08 PM Time Spent: 15 minutes Associated attestation - Fidelina Alarcon RP - 01/19/2024 12:41 PM EST Department of Pharmacy Admission Medication Reconciliation Note Patient: George Styles Room[facility]Bed: [facility]/A I have reviewed the home medication list with the Water Fabricator Operator. The home medication list status is: complete. All changes to the home medication list have been updated in [facility]. Updated PYROMETALLURGICAL ENGINEER Med List: Prior to Admission Medications Prescriptions [...] with any further questions. Name: Fidelina Alarcon, [facility] Phone #: [phone] Date/Time: 01/19/2024 12:41 PM Internal Medicine Daily Progress Note Patient: George Styles, 1970, [id number] Physician: Yury Ozuna MD, PGY1, Pager #[phone], TM1 service Assessment/Plan: Acute Hypoxic Respiratory Insufficiency [...] home amlodipine 5mg CAD: non-obstructive CAD on [facility] 2018. - continue home aspirin 81mg [...] with the Nutrition plan outlined in the Cable Repairer s note. DVT prophylaxis with lovenox Diet [...] 616) Associated attestation - Kelvin Pacheco MD, MBAPOORVA - 01/19/2024 12:31 PM EST Patient seen [...] mg Oral Daily Kelvin Pacheco MD, MBBS ceramic engineering professor Transplant nephrology Internal Medicine Daily Progress Note Patient: George Styles, 1970, [id number] Physician: Yury Ozuna MD, PGY1, Pager #[phone], SG4 service Assessment/Plan: Updates: - continued diuresis with [...] home amlodipine 5mg CAD: non-obstructive CAD on [facility] 2018. - continue home aspirin 81mg [...] with the Nutrition plan outlined in the Cable Repairer s note. DVT prophylaxis with lovenox Diet [...] in resident note. Kelvin Pacheco MD, MBBS ceramic engineering professor Transplant nephrology Pt known to oilseed meat presser from previous admissions. Provided emotional and spiritual support. Patient shared about: family support, medical course Induction Machine Setter provided: - Supportive presence - Active listening - Validation of feelings/emotions Patient encouraged to request a oilseed meat presser as needed. Chaplains are available in-house 24 hours a day and 7 days a week. For urgent matters in [facility], please page [phone]. If the request is not urgent, please enter a consult. Consults are responded to within 24 hours. Senior Staff Induction Machine Setter Angie Francisco, Mdiv, [facility] Kirk [phone] [email or web address] On-call TYLOR: order desk caller David: 22/06 Pager TYLOR,[facility], and Brock Maciel Pager [phone] 01/18/24 1342 Clinical Encounter Type Visited With Patient Visit Type Introduction Pastoral Time Spent 15 min Referral Other (See Comment) (rounding) Spiritual Assessment Emotional Observation Coping well;Anxiety Hope Observation Specific hope focus Support Observation By Family Interventions Provided Active listening;Supportive presence Facilitated Verbalization of feelings;Identifying support system;Identifying Sources of spiritual well-being Explored Expectations;Treatment decisions Street Railway Line Installer Education Street Railway Line Installer Service Available Yes Educated Patient Outcomes Patient [...] interaction. Name: Fidelina Alarcon RPH Phone #: [phone] Date/Time: 01/18/2024 9:56 AM Discharge Planning Patient [...] Yes Name and Contact information: Gian Styles ([phone]) Would you like to add additional adult [...] oxygen?: Yes Oxygen Provider and Contact : Gyros Liter-Flow?: 20/01- Order for oxygen use?: unknown [...] patient on Anticoagulation? : No [id number] [place] [address] - [address] [facility] [address] [facility] [id number] [place] Does the patient or escrow representative express financial concerns? : No Employed?: Disabled Coping/Stress Concerns about patient s coping and stress?: No Concerns about patient s caregiver s coping and stress?: No Values and Beliefs Cultural or rastafari practices that may impact discharge planning and/or [...] Plan 1. Identified self and role as Hog Killer. 2. Confirmed and updated demographics and treatment team. 3. Hog Killer will continue to follow with medical team for any other additional discharge needs. Kasandra DON RN [facility] [phone] *Please note I am float and work Thursday and Thursday every other week. Please call [phone] for assist in my absence. Internal Medicine Daily Progress Note Patient: George Styles, 1970, [id number] Physician: Yury Ozuna MD, PGY1, Pager #[phone], CF5 service Assessment/Plan: Updates: - continue diuresis with [...] ordered 2D echo. Kevin Sage MD, MADISONN [place] Former Machine Operator of Clinical Medicine [facility] documented in this encounter [facility] 01-23-2024 Plan of care note Patient [...] Symptoms (Acute Pain): verbalization of pain descriptors [facility] 01-22-2024 Hospital Discharge instructions Arelis Mera [...] your doctor for further instructions. Please call [phone], Option 1 or [phone] to schedule your appointment with the Heart Failure Clinic. Arelis Mera MD - 01/22/2024 3:08 PM EST You can change your dressing 48 hours from the procedure The following attachments cannot be sent through Care Everywhere.Heart Failure: Avoiding Triggers (Dominican)Heart Failure: Limiting Sodium (Dominican)Pain and Pain Control ([facility]) (Dominican)documented in this encounter [facility] 01-22-2024 Surgery Postoperative evaluation and management note George Styles ([id number]) PRE OPERATIVE DIAGNOSIS High output congestive heart failure [I50.83] POST OPERATIVE DIAGNOSIS Post-Op Diagnosis Codes: * High output congestive heart failure [I50.83] PROCEDURE PERFORMED Procedure(s) (LRB): LIGATION ANGIOACCESS AVF (Left) Resection of large aneurysmic vein PRIMARY CLOSURE Yes INTRAOPERATIVE FINDINGS No significant abnormalities SURGEON Surgeons and Role: * Jyoti Bryant MD, PhD - Primary ANESTHESIOLOGIST Anesthesiologist: Celena Tiwari MD; Kehinde Gutierrez MD HULL BUILDER: David Jasso APRN-HULL BUILDER Sports Bookmaker Assisting: Mini Khan MD SURGICAL STAFF Associate Buyer: Zoila Lawrence RN Relief Associate Buyer: Marimar Saravia RN Relief Scrub: Briseyda Self Scrub Person: Cinda Mai RN Resident Assisting: Leonel Harris DO Fellow: Miki Mcgowan MD, MBBS COMPLICATIONS None ESTIMATED BLOOD LOSS Minimal SPECIMENS No specimen sent * No specimens in log * Jyoti Bryant MD, PhD January 22, 2024 1:34 PM [facility] Work Phone: 01-22-2024 Nurse Note [...] nocturnally. A&Ox4. Nerve block left arm, elevated. [facility] 01-22-2024 Surgery Postoperative evaluation and [...] Axillary block. SURGEON(S): Jyoti Bryant MD, PHD RADIO PRODUCER: Mynor Fall MD ESTIMATED BLOOD LOSS: Minimal. [...] Jyoti Bryant MD, PHD ATTENDING SHANNON/Constanza JOB: [id number] DOC: [id number] [facility] 01-22-2024 Plan of care note [...] 1939 Plan Of Care Reviewed With: patient [facility] 01-20-2024 Consult note Associated Order (s): IP CONSULT TO SURGERY - TRANSPLANT (RENAL) Images from the original note were not included. TRANSPLANT SURGERY CONSULT NOTE: Consult: 01/20/2024, 4:03 PM Manager Msw: Starla Morris MD Reason for Consult: Requesting [...] DAY SURGERY MAIN OR KIDNEY TRANSPLANT W/O HOLY CROSS NEPHRECTOMY N/A 04/12/2020 Laterality: N/A; Surgeon: LU [...] Jasper Groves MD 6 mg at 01/19/24 204 Mycophenolate sodium (MYFORTIC) tablet DR 360 mg [...] 3.79/12.5/38.9/166 (01/20 611) Labs-Chem 7([facility]): Bun/Creat/Cl/CO2/Glucose: 15/1.12/105/28/88 (01/20 611) Na/K+/Phos/Mg/Ca: [...] seen and staffed with Dr. Mcgowan fellow prescription eyeglass maker Thank you, Starla Morris MD Associated attestation - Jyoti Bryant MD, PhD - 01/22/2024 10:54 AM EST Beata Bryant MD, PhD, have independently seen and examined the patient, reviewed the labs, discussed the patient with the fellow/resident and agree with the note. [facility] Work Phone: 01-20-2024 Consult note Associated Order (s): IP CONSULT TO SURGERY - TRANSPLANT (RENAL) Images from the original note were not included. TRANSPLANT SURGERY CONSULT NOTE: Consult: 01/20/2024, 4:03 PM Manager Msw: Starla Morris MD Reason for Consult: Requesting [...] DAY SURGERY MAIN OR KIDNEY TRANSPLANT W/O HOLY CROSS NEPHRECTOMY N/A 04/12/2020 Laterality: N/A; Surgeon: LU Palma; Location: [facility] SAME DAY SURGERY MAIN OR [...] 400 mg 400 mg Oral Q6H PRN Timohty Joseph MD Itraconazole (SPORANOX) oral solution 100 [...] 3.79/12.5/38.9/166 (01/20 611) Labs-Chem 7([facility]): Bun/Creat/Cl/CO2/Glucose: 15/1.12/105/28/88 (01/20 611) Na/K+/Phos/Mg/Ca: [...] seen and staffed with Dr. Mcgowan fellow prescription eyeglass maker Thank you, Starla Morris MD Associated attestation [...] GUIDANCE 05/17/2022 Surgeon: Enzo Heart DO; Location: [facility] INTERVENTIONAL RADIOLOGY (VIR) LIVER TRANSPLANT, ORTHOTOPIC N/A 04/12/2020 Laterality: N/A; Surgeon: LU Palma; Location: [facility] SAME DAY SURGERY MAIN OR KIDNEY TRANSPLANT W/O HOLY CROSS NEPHRECTOMY N/A 04/12/2020 Laterality: N/A; Surgeon: LU Palma; Location: [facility] SAME DAY SURGERY MAIN OR [...] (order for outpatient) Please SecureChat or Call ([phone]) for any questions. Await attending attestation for final recommendations. Hank Noel MD Division of Gastroenterology, Hepatology, and Nutrition Clinical Fellow, PGY-5 Pager: [phone] For urgent/stat calls or consults 5pm to 7am, please page the on-call GI fellow on [employer]. [facility]--> Internal Medicine--> Gastroenterology, Hepatology, & Nutrition--> 1st Call Janae Hatfield For urgent/stat calls or consults 7am to 5pm during the weekend, please page the on-call GI fellow on [employer]. [facility]--> Internal Medicine--> Gastroenterology, Hepatology, & Nutrition--> All [facility] Cons Fel Day For follow up questions regarding this patient 7am to 5pm during the weekday, contact the Hepatology consults fellow or CARLOS A on [employer]. [facility]--> Internal Medicine--> Gastroenterology, Hepatology, & Nutrition--> [...] Estrada MD, MSc documented in this encounter [facility] 01-19-2024 Nurse Note 01/19/24 0900 Vitals [...] rest, 95-96% when talking/moving. Paulette Cordon RN [facility] 01-19-2024 Nurse Note Paged overnight coverage, Jasper Gastelum MD, via pager #[phone] Pt- Mark. Sarah Styles 1082. TM1. Was wondering if he can have his Melatonin order increased to 6mg. Per pt, he usually takes 8mg at home. -SAMI Duffy #[phone] Tati Charles RN [facility] 01-18-2024 Consult note Associated Order (s): IP CONSULT TO HEPATOBILIARY N [facility] Main Hepatology Consult WebExchange --> IM Consult Serv [facility] --> [facility] Main Hepatology consult [...] DAY SURGERY MAIN OR KIDNEY TRANSPLANT W/O HOLY CROSS NEPHRECTOMY N/A 04/12/2020 Laterality: N/A; Surgeon: LU [...] 01/17/24 97.3 kg (214 lb 9.6 oz) 10/23/23 93 kg (205 lb) 09/10/23 92.7 kg [...] (order for outpatient) Please SecureChat or Call ([phone]) for any questions. Await attending attestation for final recommendations. Hank Noel MD Division of Gastroenterology, Hepatology, and Nutrition Clinical Fellow, PGY-5 Pager: [phone] For urgent/stat calls or consults 5pm to 7am, please page the on-call GI fellow on [employer]. [facility]--> Internal Medicine--> Gastroenterology, Hepatology, & Nutrition--> 1st Call Fel Alysia For urgent/stat calls or consults 7am to 5pm during the weekend, please page the on-call GI fellow on [employer]. [facility]--> Internal Medicine--> Gastroenterology, Hepatology, & Nutrition--> All Hep & East Wknd Cons Fel Day For follow up questions regarding this patient 7am to 5pm during the weekday, contact the Hepatology consults fellow or CARLOS A on [employer]. [facility]--> Internal Medicine--> Gastroenterology, Hepatology, & Nutrition--> [...] for outpatient) Michael Estrada MD, MSc [facility] Work Phone: 01-16-2024 Plan of care note Internal Medicine Daily Progress Note Patient: George Styles, 1970, [id number] Physician: Arelis Mera MD, PGY3, Pager #[phone], SD8 service Assessment/Plan: George Styles is a 53 [...] home amlodipine 5mg CAD: non-obstructive CAD on [facility] 2018. - continue home aspirin 81mg [...] MD, on rounds. Signed, Arelis Mera MD [facility] 01-16-2024 Nurse Note Mr. Styles was admitted to [address] [place] [address]. On admission to [facility], from outside facility a dual RN initial assessment of skin condition was performed by Izzy Gutierrez RN and Leroy Singleton RN. Skin Assessment: Skin within defined limits:Yes Jose Score: 20 Wound Vision Fluid Jet Cutter Operator images obtained: No LDA Added: No [...] room closest to nurses station when available. [facility] 01-16-2024 History and physical note Images from the original note were not included. Internal Medicine Admission History & Physical Patient: George Styles, 1970, [id number] Physician: Timothy Joseph MD, PGY1, Pager #[phone], TM 1 service Date of face to [...] DAY SURGERY MAIN OR KIDNEY TRANSPLANT W/O HOLY CROSS NEPHRECTOMY N/A 04/12/2020 Laterality: N/A; Surgeon: LU Palma; Location: [facility] SAME DAY SURGERY MAIN OR [...] itraconazole Fax results to: Dr. White - [phone] Transplant Neph - [phone] Gabapentin 400 MG capsule Sig: Take 1 [...] erythema: Skin: No jaundice or rash Neuro: gerontology aide 3-7, 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 Strength grossly [...] home amlodipine 5mg CAD: non-obstructive CAD on [facility] 2018. - continue home aspirin 81mg daily Gout: continue home allopurinol 200mg daily BPH: continue home flomax 0.4mg daily Complexity. Obesity Body mass index is 32.8 kg/m . - Follow with PCP for dietary and lifestyle modifications. Any conditions listed below are present on admission unless otherwise specified. . DVT prophylaxis with lovenox Disposition: admitted to [facility] Code status is Full Staffed with Timothy [...] Pierson, Luisa Steven, Renee Rivera, Daisha Max Car Stereo Installer: José Miguel Garnica All Txt: 04/13/2020 (Kidney), [...] results found for: CYCLOSPORIN , CYCLOSPORIN2 , [id number] , CYCLORAND No results found for: SIROLIMUS [...] request in chart. Kevin Sage MD Pager [phone] [facility] 01-16-2024 History and physical note Images from the original note were not included. Internal Medicine Admission History & Physical Patient: George Styles, 1970, [id number] Physician: Timothy Joseph MD, PGY1, Pager #[phone], TM 1 service Date of face to [...] 04/12/2020 Laterality: N/A; Surgeon: LU Palma; Location: [facility] SAME DAY SURGERY MAIN OR KIDNEY TRANSPLANT W/O HOLY CROSS NEPHRECTOMY N/A 04/12/2020 Laterality: N/A; Surgeon: LU Palma; Location: [facility] SAME DAY SURGERY MAIN OR [...] itraconazole Fax results to: Dr. White - [phone] Transplant Neph - [phone] Gabapentin 400 MG capsule Sig: Take 1 [...] erythema: Skin: No jaundice or rash Neuro: gerontology aide 3-7, 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 Strength grossly [...] home amlodipine 5mg CAD: non-obstructive [facility] [facility] - continue home aspirin 81mg daily Gout: continue home allopurinol 200mg daily BPH: continue home flomax 0.4mg daily Complexity. Obesity Body mass index is 32.8 kg/m . - Follow with PCP for dietary and lifestyle modifications. Any conditions listed below are present on admission unless otherwise specified. . DVT prophylaxis with lovenox Disposition: admitted to [facility] Code status is Full Staffed with Dr. [...] Physician: Morgan Harris, Erma Roe, Fidelina Pierson, Renee Macedo, Daisha Max Car Stereo Installer: José Miguel Garnica All Txt: 04/13/2020 (Kidney), [...] results found for: CYCLOSPORIN , CYCLOSPORIN2 , BQOAUMYOC3RS , CYCLORAND No results found for: SIROLIMUS [...] request in chart. Kevin Sage MD Pager [phone] documented in this encounter [facility] 01-12-2024 History of Present illness Narrative [...] Name: Prograf 0.2 MG Contact Info: Specialty ([place]) [phone] Jakob [phone] [facility] [phone] David [phone] Bedside Delivery ([facility]) [phone] [facility] RX OUTREACH ADVANCED: Call Information: Date and Time of Contact: 01/25/2024 10:23 AM Method of Contact: By Phone Contact Type: Prescriptions Contactor: [facility] Contactee: Patient Contact Outcome: Left message (prograf myco) Contact Info: Specialty ([place]) [phone] [facility] [phone] [facility] [phone] David [phone] Bedside Delivery ([facility]) [phone] documented in this encounter [facility] 01-12-2024 History of Present illness Narrative [...] Prograf 0.2 MG Contact Info: Specialty ([place]) [phone] [facility] [phone] [facility] [phone] David [phone] Bedside Delivery ([facility]) [phone] [facility] RX OUTREACH ADVANCED: Call Information: Date and Time of Contact: 01/25/2024 10:23 AM Method of Contact: By Phone Contact Type: Prescriptions Contactor: [facility] Contactee: Patient Contact Outcome: Left message (prograf myco) Contact Info: Specialty ([place]) [phone] [facility] [phone] [facility] [phone] David [phone] Bedside Delivery ([facility]) [phone] [facility] RX OUTREACH ADVANCED: Call Information: Date and Time of Contact: 01/27/2024 10:19 AM Method of Contact: By Phone Contact Type: Prescriptions Contactor: [facility] Contactee: Patient Contact Outcome: Left message (myco prograf) Contact Info: Specialty ([place]) [phone] [facility] [phone] [facility] [phone] David [phone] Bedside Delivery ([facility]) [phone] documented [facility] 01-12-2024 History of Present illness Narrative [...] Name: Prograf 0.2 MG Contact Info: Specialty ([place]) [phone] [facility] [phone] [facility] [phone] David [phone] Bedside Delivery ([facility]) [phone] [facility] RX OUTREACH ADVANCED: Call Information: Date and Time of Contact: 01/25/2024 10:23 AM Method of Contact: By Phone Contact Type: Prescriptions Contactor: [facility] Contactee: Patient Contact Outcome: Left message (prograf myco) Contact Info: Specialty ([place]) [phone] [facility] [phone] [facility] [phone] David [phone] Bedside Delivery ([facility]) [phone] [facility] RX OUTREACH ADVANCED: Call Information: Date and Time of Contact: 01/27/2024 10:19 AM Method of Contact: By Phone Contact Type: Prescriptions Contactor: [facility] Contactee: Patient Contact Outcome: Left message (myco prograf) Contact Info: Specialty ([place]) [phone] [facility] [phone] [facility] [phone] David [phone] Bedside Delivery ([facility]) [phone] [facility] RX OUTREACH ADVANCED: Call Information: Date and Time of Contact: 02/01/2024 3:22 PM Contact Type: Prescriptions Contactor: [facility] Contactee: Patient Contact Outcome: Left message Shipping/Pickup: Medication Name: Mycophenolate 360mg and Prograf 0.2mg Pack Contact Info: Specialty ([place]) [phone] [facility] [phone] [facility] [phone] David [phone] Bedside Delivery ([facility]) [phone] documented in this encounter [facility] 01-06-2024 History of Present illness Narrative [...] The neurologist wanted to send him to [facility] neurology but it is out of network [...] pt to see [facility]ist [facility] Immunocompromised ([facility]) Hypertension (CMS/HCC) No change in meds Check echo Relevant Orders Echocardiogram 2D complete Bilateral lower extremity edema Relevant Orders Echocardiogram 2D complete Shortness of breath Check ECHO Relevant Orders Echocardiogram 2D complete Other Visit Diagnoses 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) Atherosclerosis 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) documented in this encounter [facility] 10-06-2023 History of Present illness Narrative [facility] [...] ; Prograf 0.2 MG Contact Info: Specialty ([place]) [phone] [facility] [phone] [facility] [phone] David [phone] Bedside Delivery ([facility]) [phone] [facility] OUTREACH ADVANCED: Call Information: Date and Time of Contact: 10/23/2023 2:00 PM Method of Contact: By Phone Contact Type: Prescriptions Contactor: [facility] Contactee: Patient Contact Outcome: Left message and Call back later Shipping/Pickup: Medication Name: Mycophenolate 360mg and Prograf 0.2mg Contact Info: Specialty ([place]) [phone] [facility] [phone] [facility] [phone] [facility] [phone] Bedside Delivery ([facility]) [phone] documented in this encounter [facility] 09-11-2023 Miscellaneous Notes Pt discharged home [...] oxygen during the night. pt will machine operator picker his oxygen from [employer] [facility], 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 This RN [...] Patient seen ambulating in the velazquez with SENIOR DIGITAL DESIGNER. Patient was mildly short of breath on [...] & HR 114. Messaged Mainor Loomis, via IHIS secure chat, Temp 100.8. His tylenol order is not listed for temps though. Tati Charles, RN Discussed the plan for antibiotics with [...] Critical Care Medicine Message Mainor Loomis, via QuadROI secure chat, Good evening, just an FYI, [...] [address] Loera here also (flight surgeon) Dr. Diaz aware of pt's increased oxygen [...] 0748 Airway/Ventilation Management: pulmonary hygiene promoted Taken 08/29/20231045 Sleep/Rest Enhancement: regular sleep/rest pattern promoted Sent a secure QuadROI chat to Rosi LUZ concerning patient's temp [...] discharge/transition of care. Outcome: Ongoing Flowsheets (Taken 08/29/20231045) Effective Oxygenation/Ventilation: making progress toward outcome Problem: [...] PGY-2 Mr. Styles was admitted to [address] [place] [address]. On admission to [facility], from home a [...] when available. documented in this encounter [facility] 09-11-2023 History of Present illness Narrative Provided follow-up emotional and spiritual support. Patient shared about rosemary of discharge and looking forward to seeing family Induction Machine Setter provided: - Supportive presence - Active listening - Validation of feelings/emotions Patient encouraged to request a oilseed meat presser as needed. Chaplains are available in-house 24 hours a day and 7 days a week. For urgent matters in [facility], please page [phone]. If the request is not urgent, please enter a consult. Consults are responded to within 24 hours. Senior Staff Induction Machine Setter Angie Singh Mdiv, [facility] [phone] [email or web address] 22/06 On-call [place]: [phone] 22/06 Pager ,APOORVA, and Brock Debbie David Pager [phone] 09/11/23 1437 Clinical Encounter Type Visited With Patient Visit Type Follow-up Pastoral Time Spent 15 min Referral Other (See Comment) (rounding) Spiritual Assessment Spiritual Observation Spirituality helpful Emotional Observation Coping well Hope Observation Specific hope focus Support Observation By Family Interventions Provided Active listening;Supportive presence Facilitated Verbalization of feelings Explored Expectations Street Railway Line Installer Education Street Railway Line Installer Service Available Yes Educated Patient Plan of Care Continue Visiting PRN Images from the original note were not included. [facility] Note: Non-Verbal Med Rec [facility] received the following discharge prescription(s): Total cost is $0. I have reviewed the Discharge Rx Reconciliation Report. The discharge prescription(s) will be delivered to the patient on 09/11/2023. Dimitrios Gurrola RPh,PharmD Specialty ([place]) [phone] [facility] [phone] [facility] Bedside Delivery [phone] [facility] [phone] [facility] Bedside Delivery [phone] [facility] [phone] [facility] Bedside Delivery [phone] [place] [phone] [place] [phone] Internal Medicine Daily Progress Note Patient: George Styles, 1970, [id number] Physician: Evan Kelly MD, PGY-1, TM1 service Subjective/Interval History: Patient continues to require oxygen overnight for desaturations. With insurance limitations, only accepting agency to provide home oxygen backed out. After calling them to discuss, Lynn stated she would be willing to have patient drive to their facility to machine operator picker supplies, however they close at 5pm. 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 His [place] kidney disease was noted to be presumed [...] losartan 50mg BID CAD: non-obstructive CAD on [facility] 2018. - continue home aspirin 81mg [...] 5.05 (H) 11/19/2018 Kevin Sage MD, SERA [place] Former Machine Operator of Clinical Medicine [facility] Images from the original note were not included. Final Discharge Planning and Transportation Final Discharge Planning Discharge Disposition: Home Services at Discharge: Outpatient clinical services (ie: lab draws, transfusions, injectables) (Home Oxygen by [employer]) Selected Continued Care - Admitted Since 08/28/2023 Durable Medical Equipment Coordination complete. Service Provider Selected Services Address Phone Fax Patient Preferred [employer] [facility] [employer] Durable Medical Equipment [phone] [phone] Internal Comment last updated by Lora Lawrence RN 09/10/2023 1334 Correct contact information: [employer] [address] [place] [address] [place] [address] glass block bender- you do not need to call at discharge, I already notified the company. Addendum 1520 [employer] notified this CM they are out of patient's insurance area and will not be able to service this patient at time of discharge. Provider notified. Addendum 1553 Dr Kelly called [facility] spoke to Lynn and she said they are willing to accept patient if the patient would drive to the [place] office and machine operator picker the supplies. 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 Medication additions/changes: Lipitor on hold with itraconazole Items for clinic follow up: - Lipid follow up with atorvastatin on hold - Itraconazole level and, if needed, a dose adjustment Name: Matt Kramer RPh,Frankie Phone: [phone] Date/Time: 09/10/2023 11:33 AM This CM sent referral via [employer], for O2 concentrator to 4 agencies Start date today Timer set for 1330 [facility] [employer] Addendum 1332 One accepting company reserved in [place] [address] [place] [address] Lora Colón RN, MSN, CCM, CMCN Clinical Hog Killer- [facility] Transplant #[phone] NUTRITION FOLLOW-UP Nutrition Plan of Care: 1. Continue current diet order. 2. No oral supplements warranted at this time. 3. Monitor for significant weight changes. Monitor GI, skin integrity. 4. Monitor and encourage po intakes with goal of average po being 75-100%. 5. human service technician to follow. ___ Met with patient [...] time. Will continue to monitor. RHIANNON BirminghamR Pager:[phone] Transplant Infectious Disease (Team 3) Progress Note [...] sign off. Please Epic message or page [phone] with questions. 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 His [place] kidney disease was noted to be presumed [...] losartan 50mg BID CAD: non-obstructive CAD on [facility] 2018. - continue home aspirin 81mg [...] to follow. Please Epic message or page [phone] with questions. Evan White DO Transplant Infectious Diseases Internal Medicine Daily Progress Note Patient: George Styles, 1970, [id number] Physician: Laurel Serrano MD, PhD, PGY-3, TM1 [...] s/p combined Liver-kidney transplant on 04/13/20. His [place] kidney disease was noted to be presumed [...] losartan 50mg BID CAD: non-obstructive CAD on [facility] 2018. - continue home aspirin 81mg daily, holding atorvastatin 20mg daily Gout: continue home allopurinol 200mg daily BPH: continue home flomax 0.4mg daily DVT PPX: SQH Code Status: Full Code Disposition: Pending clinical course. Anticipate eventual discharge home. Discussed with team and attending, Kevin Sage MD, on rounds. Signed, Laurel Serrano MD, PhD Internal Medicine Daily Progress Note Patient: George Styles, 1970, [id number] Physician: Evan Kelly MD, PGY-1, TM1 service Subjective/Interval History: No acute events overnight. Patient saturating appropriately on room air. He has been mobilizing his secretions. Denies any shortness of breath. All questions answered by the team on rounds. Objective: Vitals: 09/07/231052 BP: 126/61 Pulse: 68 Resp: 16 Temp: 97.6 F (36.4 C) SpO2: 97% O2 Device: nasal cannula (09/07/231052) Flow (L/min): 2 (09/07/23 1100) Gen: Alert, [...] s/p combined Liver-kidney transplant on 04/13/20. His [place] kidney disease was noted to be presumed [...] losartan 50mg BID CAD: non-obstructive CAD on [facility] 2018. - continue home aspirin 81mg [...] 5.05 (H) 11/19/2018 Kevin Sage MD, SERA [place] Former Machine Operator of Clinical Medicine [facility] Transplant Infectious Disease [...] to follow. Please Epic message or page [phone] with questions. Ann Marie Haskins MD PGY-4, [...] he continues to improve. Please message via QuadROI secure chat or page with any questions or concerns. Evan White DO [place] Former Machine Operator Division of Infectious Disease Transplant Infectious [...] to follow. Please Epic message or page [phone] with questions. Evan White DO Transplant Infectious Diseases Images from the original note were not included. Pulmonary/Critical Care Medicine Daily Progress Note Reason for Consultation: bronch for infectious workup Requesting Physician: Dr. Sage CURRENT HOSPITALIZATION: Admit Date: 08/28/2023 [facility] [...] and interpreted reviewed the radiographic data in IHIS/[employer]/careeverywhere. Internal Medicine Daily Progress Note Patient: George Styles, 1970, [id number] Physician: Evan Kelly MD, PGY-1, TM1 service [...] s/p combined Liver-kidney transplant on 04/13/20. His [place] kidney disease was noted to be presumed [...] losartan 50mg BID CAD: non-obstructive CAD on [facility] 2018. - continue home aspirin 81mg [...] CREATSERUM 5.05 (H) 11/19/2018 Kevin Sage MD, [facility] [place] Former Machine Operator of Clinical Medicine [facility] Images from the original note were not included. Pulmonary/Critical Care Medicine Daily Progress Note Reason for Consultation: bronch for infectious workup Requesting Physician: Dr. Sage CURRENT HOSPITALIZATION: Admit Date: 08/28/2023 [facility] [...] and interpreted reviewed the radiographic data in [employer]. Acute Occupational Therapy Evaluation Prior to Admission [...] Assessment: Transfer Assessment: Sit to Stand Transfer [place] Level: Sit->Stand: independent Skilled Intervention/Details: Sit->Stand: x1 from EOB, x1 from toilet Stand to Sit Transfer [place] Level: Stand->Sit: independent Skilled Intervention/Details: Stand->Sit: x1 to toilet, x1 to EOB Functional Mobility: Functional Mobility [place] Level: Functional Mobility/Gait: independent Ambulation Distance (Feet): 20 Skilled Intervention/Details - Functional Mobility/Gait: pt performed functional mobility to/from RR w/ no overt LOB Outcome Score(s): [facility] Daily Activity Inpatient Short Form Putting on/Taking Off Lower Body Clothin - A Little Assistance Bathin - A Little Assistance Toiletin - A Little Assistance Putting on/Taking Off Upper Body Clothin - No Assistance Groomin - No Assistance Eatin - No Assistance [facility] Activity Raw Score: 21 [facility]RENT [facility] Activity Functional Limitation/Modifier: 32.79% Currently Impaired in [...] Intact Mobility Assessment: Supine to Sit Mobility [place] Level: Supine->Sit: modified reno Bed Features/Set-up: Supine->Sit: Head of bed elevated Sit to Supine Mobility [place] Level: Sit->Supine: not tested Balance: Sitting Balance [...] environment. Transfer Assessment: Sit to Stand Transfer [place] Level: Sit->Stand: independent Skilled Intervention/Details: Sit->Stand: From EOB x 2 without difficulty. Stand to Sit Transfer [place] Level: Stand->Sit: independent Assistive Device: Stand->Sit: armed chair Skilled Rationale: Verbal cues, Positioning Gait/Functional Mobility: Gait Assessment [place] Level: Gait: stand-by assist Assistive Device: Gait: rollator Ambulation Distance (Feet): 400 Gait Deviations Identified: decreased grace, decreased gait speed Gait Skilled Rationale: verbal, upright posture, increase step length, increase foot clearance Skilled Intervention/Details - Gait: Reasonable foot clearnce without loss of balance but endorsing dyspnea as 6-7/10. Stairs: Stairs Assessment [place] Level: Stair Negotiation: not tested Outcome Score(s): [facility] Basic Mobility Inpatient Short Form Turning over in bed: 4 - No Assistance Sitting/standing from chair: 4 - No Assistance Moving from lying on back to sittin - No Assistance Moving to and from bed to chair: 3 - A Little Assistance Walk in hospital room: 3 - A Little Assistance Climbing 3-5 steps with a railin - A Little Assistance [facility] Mobility Raw Score: 21 CURRENT [facility] Mobility Functional Limitation/Modifier: 28.97% Currently Impaired in [...] Daily Progress Note Patient: George Styles, 1970, [id number] Physician: Evan Kelly MD, PGY-1, TM1 service [...] s/p combined Liver-kidney transplant on 04/13/20. His [place] kidney disease was noted to be presumed [...] losartan 50mg BID CAD: non-obstructive CAD on [facility] 2018. - continue home aspirin 81mg [...] 5.05 (H) 11/19/2018 Kevin Sage MD, SERA [place] Former Machine Operator of Clinical Medicine [facility] Transplant Infectious Disease [...] to follow. Please Epic message or page [phone] with questions. Evan White DO Transplant Infectious Diseases Images from the original note were not included. Internal Medicine Daily Progress Note Patient: George Styles, 1970, [id number] Physician: Evan Kelly MD, PGY-1, TM1 service [...] s/p combined Liver-kidney transplant on 04/13/20. His [place] kidney disease was noted to be presumed [...] losartan 50mg BID CAD: non-obstructive CAD on [facility] 2018. - continue home aspirin 81mg [...] P 450 system Kevin Sage MD, SERA [place] Former Machine Operator of Clinical Medicine [facility] ERT Note: ERT [...] - CXR - NRB -> HHF -> ELLEN Serrano MD, PhD Internal Medicine and Pediatrics PGY-3 [facility] Brief plan of care update: Called [...] MD, PhD Internal Medicine and Pediatrics PGY-3 [facility] Transplant Infectious Disease (Team 3) Progress [...] to follow. Please Epic message or page [phone] with questions. Evan White DO Transplant Infectious Diseases Internal Medicine Daily Progress Note Patient: George Styles, 1970, [id number] Physician: Evan Klely MD, PGY-1, TM1 service Subjective/Interval History: Patient [...] s/p combined Liver-kidney transplant on 04/13/20. His [place] kidney disease was noted to be presumed [...] 2/2 renal function CAD: non-obstructive CAD on [facility] 2018. - continue home aspirin 81mg [...] 3 completed shifts: In: 2089 [P.O.:2089] Out: 1675 [Urine:1675] No intake/output data recorded. LABS Lab [...] 5.05 (H) 11/19/2018 Kevin Sage MD, SERA [place] Former Machine Operator of Clinical Medicine [facility] Internal Medicine Daily Progress Note Patient: George Styles, 1970, [id number] Physician: Evan Kelly MD, PGY-1, TM1 service Subjective/Interval History: No acute events overnight. Patient with increasing oxygen requirements during bronchoscopy today. Returned to 4L NC post procedure. Patient denies any current shortness of breath. All questions answered by the team on rounds. Objective: Vitals: 09/02/23 152 BP: Pulse: 77 Resp: 23 Temp: SpO2: 94% O2 Device: nasal cannula (09/02/231520) Flow (L/min): 4 (09/02/23 152) Gen: Alert, Awake, NAD, tired-appearing Eyes: EOMI, [...] s/p combined Liver-kidney transplant on 04/13/20. His [place] kidney disease was noted to be presumed [...] 2/2 renal function CAD: non-obstructive CAD on [facility] 2018. - continue home aspirin 81mg [...] 5.05 (H) 11/19/2018 Kevin Sage MD, FASN [place] Former Machine Operator of Clinical Medicine [facility] Progression of Care [...] Lora Colón RN, MSN, CCM, CMCN Clinical Hog Killer- [facility] Transplant #[phone] Made introductory visit with patient. Provided emotional and spiritual support. Patient shared about: - Source of Rosemary: Camping/Fishing/Family - Spirituality/Yazidism Affiliation: raised Caodaism - Family Support/history - Experience with illness/hospital course - Hopes for healing/future Induction Machine Setter provided: - Supportive presence - Active listening - Validation of feelings/emotions - Pledged prayer Patient encouraged to request a oilseed meat presser as needed. Chaplains are available in-house 24 hours a day and 7 days a week. For urgent matters in [facility], please page [phone]. If the request is not urgent, please enter a consult. Consults are responded to within 24 hours. Senior Staff Induction Machine Setter Angie Singh Mdiv, [facility] [place] [phone] [email or web address] 22/06 On-call [place]: [phone] 22/06 Pager ,BSH, and Brock Maciel Pager [phone] 09/02/23 1113 Clinical Encounter Type Visited With Patient Visit Type Introduction Pastoral Time Spent 15 min Referral Other (See Comment) (rounding) Spiritual Assessment Spiritual Observation Spirituality helpful Emotional Observation Coping well Hope Observation Specific hope focus Support Observation By Family Interventions Provided Active listening;Supportive presence Facilitated Verbalization of feelings Explored Expectations Street Railway Line Installer Education Street Railway Line Installer Service Available Yes Educated Patient Outcomes Patient Outcomes Reduced distress Plan of Care Continue Visiting PRN NUTRITION RISK SCREENING NOTE Nutrition Plan of Care: 1. Continue current diet order. 2. No oral supplements warranted at this time. 3. Monitor for significant weight changes. Monitor GI and skin integrity. 4. Monitor and encourage po intakes with goal of average po being 100%. 5. human service technician to follow. George Styles is a 53 y.o. 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 His [place] kidney disease was noted to be presumed hepatorenal syndrome. His post-transplant course was noteworthy for nephrostomy tube (05/17/2022-09/10/2022) due to concern for ureteral stone. He presents as a direct admission for fever, cough, for infectious workup. Pt unavailable and information obtained via chart review Demurrage Clerk Screening Pt's appetite is good. Pt [...] with meds Food Allergies reviewed:Shellfish Cultural or Yazidism Restrictions/Preferences: None GI: Last Bowel Movement: 09/01/23 [...] time. Will continue to monitor. RHIANNON BirminghamR Pager:[phone] Internal Medicine Daily Progress Note Patient: George Styles, 1970, [id number] Physician: Evan Kelly MD, PGY-1, TM1 service [...] s/p combined Liver-kidney transplant on 04/13/20. His [place] kidney disease was noted to be presumed [...] 2/2 renal function CAD: non-obstructive CAD on [facility] 2019. - continue home aspirin 81mg [...] as outlined above. Kevin Sage MD Pager [phone] Summary: Pharmacy Med Rec Department of Pharmacy [...] Provider: Zuly Bruno NP [facility]: [facility] Other Comments: Patient reported his Last Home Dose of mycophenolate & tacrolimus was on 08/28/23 at 0900. Patient reported he was taking Bactrim and benzonatate for fevers and a cough he was having. Please feel free to contact me with any further questions. Name: Heidy Chatman Phone #: [phone] Date/Time: 09/01/2023 2:01 PM Time Spent: 15 minutes Associated attestation - Matt Kramer RPh,PharmJenna - 09/01/2023 2:28 PM EDT Department of Pharmacy Admission Medication Reconciliation Note Patient: George Styles Room/Bed: 1062/A I have reviewed the home medication list with the Water Fabricator Operator. All changes to the home medication list have been updated in [facility]. Updated PYROMETALLURGICAL ENGINEER Med List: Prior to Admission Medications Prescriptions [...] me with any further questions. Name: Matt DooleyTrevor colón,PharmD Phone #: [phone] Date/Time: 09/01/2023 2:28 PM Transplant Infectious Disease [...] crypto antigen, EBV PCR -follow pending histo, [id number] labs These recommendations were discussed with the primary team. Transplant ID (Team 3) will continue to follow. Please Epic message or page [phone] with questions. Evan White DO Transplant Infectious Diseases Internal Medicine Daily Progress Note Patient: George Styles, 1970, [id number] Physician: Evan Kelly MD, PGY-1, TM1 service [...] s/p combined Liver-kidney transplant on 04/13/20. His [place] kidney disease was noted to be presumed [...] 2/2 renal function CAD: non-obstructive CAD on [facility] 2018. - continue home aspirin 81mg [...] 5.05 (H) 11/19/2018 Kevin Sage MD, SERA [place] Former Machine Operator of Clinical Medicine [facility] Discharge Planning Patient [...] Yes Name and Contact information: Gian Jensen ([phone]) Reviewed and Updated in Demographics? : Yes [...] patient on Anticoagulation? : No [id number] [place] [address] - [address] [place] [address] [address] [facility] [address] [place] Does the patient or escrow representative express financial concerns? : No Employed?: Disabled Coping/Stress Concerns about patient s coping and stress?: No Concerns about patient s caregiver s coping and stress?: No Values and Beliefs Cultural or rastafari practices that may impact discharge planning and/or [...] Plan 1. Identified self and role as Hog Killer. 2. Confirmed and updated demographics and treatment team. 3. Hog Killer will continue to follow with medical team/pt for any other additional discharge needs. Kasandra DON RN [facility] [phone] *Please note I am float CM and work Thursday and Thursday every other week. Please call [phone] for assist in my absence. Internal Medicine Daily Progress Note Patient: George Styles, 1970, [id number] Physician: Evan Kelly MD, PGY-1, TM1 service [...] s/p combined Liver-kidney transplant on 04/13/20. His [place] kidney disease was noted to be presumed [...] 2/2 renal function CAD: non-obstructive CAD on [facility] 2018. - continue home aspirin 81mg daily, atorvastatin 20mg daily Gout: continue home allopurinol 200mg daily BPH: continue home flomax 0.4mg daily DVT PPX: SQH Code Status: Full Code Disposition: Pending clinical course. Anticipate eventual discharge home. Discussed with team and attending, Kevin Saeg MD, on rounds. Signed, Evan Kelly MD [...] CREATSERUM 5.05 (H) 11/19/2018 Kevin Sage MD, [facility] [place] Former Machine Operator of Clinical Medicine [facility] Internal Medicine Daily Progress Note Patient: George Styles, 1970, [id number] Physician: Laurel Serrano MD, PhD, PGY-3, TM1 [...] No rashes, no skin findings. Objective: Vitals: 08/29/230 BP: 129/70 Pulse: 87 Resp: 16 Temp: [...] s/p combined Liver-kidney transplant on 04/13/20. His [place] kidney disease was noted to be presumed [...] losartan 50mg BID CAD: non-obstructive CAD on [facility] 2018. - continue home aspirin 81mg daily, atorvastatin 20mg daily Gout: continue home allopurinol 200mg daily BPH: continue home flomax 0.4mg daily DVT PPX: SQH Code Status: Full Code Disposition: Pending clinical course. Anticipate eventual discharge home. Discussed with team and attending, Kevin Sage MD, on rounds. Signed, Laurel Serrano MD, PhD documented in this encounter [facility] 09-10-2023 Hospital Discharge instructions Laurel Serrano [...] sleep doctor. You will need to machine operator picker the oxygen concentrator when you leave [...] on healthy foods. documented in this encounter [facility] 09-01-2023 Consult note Associated Order (s): [...] to increase diagnostic yield if possible. Crow Daiz MD Pulmonary and Critical Care Medicine Associated [...] ill contacts. He traveled to [place] to [facility] in May. REVIEW OF SYSTEMS A [...] GUIDANCE 05/17/2022 Surgeon: Enzo Heart DO; Location: [facility] INTERVENTIONAL RADIOLOGY (VIR) LIVER TRANSPLANT, ORTHOTOPIC N/A 04/12/2020 Laterality: N/A; Surgeon: LU Palma; Location: [facility] SAME DAY SURGERY MAIN OR KIDNEY TRANSPLANT W/O HOLY CROSS NEPHRECTOMY N/A 04/12/2020 Laterality: N/A; Surgeon: LU Palma; Location: [facility] SAME DAY SURGERY MAIN OR [...] Alamo MD I can be reached via QuadROI secure message (preferred) or Pager #[phone] documented in this encounter [facility] 08-28-2023 History and physical note Images from the original note were not included. Internal Medicine Admission History & Physical Patient: George Styles, 1970, [id number] Physician: Aric Turner MD, PGY1, Pager #[phone], TM service Date of face to face [...] So he went to see the transplant military science teacher. He was found elevated Cr and asked [...] Appetite is ok now. Urine is about 5672-3968 ml every day. Stool every day, no [...] GUIDANCE 05/17/2022 Surgeon: Enzo Heart DO; Location: [facility] INTERVENTIONAL RADIOLOGY (VIR) LIVER TRANSPLANT, ORTHOTOPIC N/A 04/12/2020 Laterality: N/A; Surgeon: LU Palma; Location: [facility] SAME DAY SURGERY MAIN OR KIDNEY TRANSPLANT W/O HOLY CROSS NEPHRECTOMY N/A 04/12/2020 Laterality: N/A; Surgeon: LU Palma; Location: [facility] SAME DAY SURGERY MAIN OR [...] s/p combined Liver-kidney transplant on 04/13/20. His [place] kidney disease was noted to be presumed [...] Urinary histoplasmosis - PJP, candid PCR - Manager Msw transplant ID Acute Kidney Injury with Kidney [...] losartan 50mg BID CAD: non-obstructive CAD on [facility] 2018. - continue aspirin 81mg daily, [...] Pierson, Luisa Steven, Renee Rivera, Daisha Max Car Stereo Installer: José Miguel Ganrica All Txt: 04/13/2020 (Kidney), 04/13/2020 (Liver) Current [...] results found for: CYCLOSPORIN , CYCLOSPORIN2 , [id number] , CYCLORAND No results found for: SIROLIMUS [...] Rest as above. Kevin Sage MD Pager [phone] documented in this encounter [facility] 08-28-2023 History of Present illness Narrative Images from the original note were not included. 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 Car Stereo Installer: Anayeli Burt Date of Liver Transplant: 04/13/2020 (Kidney), 04/13/2020 (Liver) 3 years 4 months post Liver/Kidney Transplant Primary Disease: Hypertensive Nephrosclerosis Transplant Hired Hand: Erma Roe/ Daisha Max Primary Care physician: [...] and faMOTIdine === None Specified Preferred Lab: [facility] Change in lab frequency / new [...] every 12 hours. ADDITIONAL INFORMATION: None Specified, [id number] [place] [address] - [address] [facility] [address] [facility] [address] [facility] [address] [facility] [address] [id number] [place] [address] [address] [facility] [address] [facility] [address] [facility] [address], [place] [address] [place] [address] ROS and SCREEN: Chest Pain: negative Cough: [...] PHYSICIAN: I saw George Styles at the [facility] on 08/28/2023. Patient is a 53 y.o. 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 His [place] kidney disease was noted to be presumed [...] GUIDANCE 05/17/2022 Surgeon: Enzo Heart DO; Location: [facility] INTERVENTIONAL RADIOLOGY (VIR) LIVER TRANSPLANT, ORTHOTOPIC N/A 04/12/2020 Laterality: N/A; Surgeon: LU Palma; Location: [facility] SAME DAY SURGERY MAIN OR KIDNEY TRANSPLANT W/O HOLY CROSS NEPHRECTOMY N/A 04/12/2020 Laterality: N/A; Surgeon: LU Palma; Location: [facility] SAME DAY SURGERY MAIN OR [...] you have any questions. Steve Latham MD lead software developer Division of Nephrology [facility] documented in this encounter [facility] 08-28-2023 Instructions Mainor Busby RN - 08/28/2023 2:15 PM EDT - Admission for fevers, cough, and night sweats documented in this encounter [facility] 08-19-2023 History of Present illness Narrative [facility] OUTREACH ADVANCED: Call Information: Date and Time of Contact: 08/19/2023 2:52 PM Method of Contact: By Phone Contact Type: Prescriptions Contactor: [facility] Contactee: Patient Shipping/Pickup: Medicare B Refill?: No Medication Name: Tacro 0.5mg Delivery Method: Air Delivery Location: Home Signature Required: No Mailing/Pickup Date: 08/25/2023 Shipping Address: [address] [place] [address] [address] Contact Info: Specialty ([place]) [phone] Jakob [phone] [facility] [phone] David [phone] Bedside Delivery ([facility]) [phone] documented in this encounter [facility] 06-12-2023 History of Present illness Narrative Images from the original note were not included. George Styles is a 53 y.o. 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 No longer follows with a local military science teacher. History of Present Illness: Since George was [...] and lab results. Rebeca Gutierrez MSN, RN, FLAME DEGREASER-BC, CCTN Certified Nurse Practitioner Comprehensive Transplant Center [facility] [address] [facility] [address] documented in this encounter [facility] 06-12-2023 Instructions JEANNA Hess - 06/12/2023 3:00 PM EDT No change in immunosuppression. documented in this encounter [facility] 06-10-2023 History of Present illness Narrative [facility]REACH ADVANCED: Call Information: Method of Contact: By Phone Contact Type: Prescriptions Contactor: [facility] OP Contactee: Patient Contact Outcome: Left message Shipping/Pickup: Medication Name: Mycophenolate sod 180 mg Contact Info: Specialty ([place]) [phone] [facility] [phone] [facility] [phone] David [phone] Bedside Delivery ([facility]) [phone] [facility]REACH ADVANCED: Call Information: Date and Time of Contact: 06/12/2023 9:43 AM Method of Contact: By Phone Contact Type: Prescriptions Contactor: [facility] Contactee: Patient Contact Outcome: Left message and Follow-up Shipping/Pickup: Medicare B Refill?: No Medication Name: Myco 180 Contact Info: Specialty ([place]) [phone] [facility] [phone] [facility] [phone] David [phone] Bedside Delivery ([facility]) [phone] [facility] RX OUTREACH ADVANCED: Call Information: Date and Time of Contact: 06/12/2023 10:08 AM Method of Contact: By Phone Contact Type: Prescriptions Contactor: [facility] Contactee: Patient Shipping/Pickup: Medicare B Refill?: No Medication Name: Mycophenolate 180mg DR Delivery Method: Air Delivery Location: Home Signature Required: No Mailing/Pickup Date: 06/17/2023 Shipping Address: [address] [address] Contact Info: Specialty ([place]) [phone] [facility] [phone] [facility] [phone] David [phone] Bedside Delivery ([facility]) [phone] documented in this encounter [facility] 03-12-2023 History of Present illness Narrative [facility] OUTREACH ADVANCED: Call Information: Date and Time of Contact: 03/12/2023 10:34 AM Method of Contact: By Phone Contact Type: Prescriptions Contactor: [facility] Contactee: Patient Shipping/Pickup: Medicare B Refill?: No Medication Name: Mycophenoloate sod 360 mg prednisone 5mg Delivery Method: Air Delivery Location: Home Signature Required: No Mailing/Pickup Date: 03/16/2023 Shipping Address: [address] [place] [address] Contact Info: Specialty ([place]) [phone] [facility] [phone] [facility] [phone] David [phone] Bedside Delivery ([facility]) [phone] [facility] RX OUTREACH ADVANCED: Call Information: [...] Required: No Mailing/Pickup Date: 03/19/2023 Shipping Address: [address] [place] [address] [address] Contact Info: Specialty ([place]) [phone] [facility] [phone] [facility] [phone] David [phone] Bedside Delivery ([facility]) [phone] documented in this encounter [facility] 03-10-2023 History of Present illness Narrative [facility] RX OUTREACH ADVANCED: Call Information: Date and Time of Contact: 03/10/2023 12:00 PM Method of Contact: By Phone Contact Type: Prescriptions Contactor: [facility] Contactee: Patient Contact Outcome: Left message and Call back later Shipping/Pickup: Medication Name: Mycophenolate ; Tacrolimus Contact Info: Specialty ([place]) [phone] Jakob [phone] [facility] [phone] David [phone] Bedside Delivery ([facility]) [phone] documented in this encounter [facility] 03-10-2023 History of Present illness Narrative [facility] OUTREACH ADVANCED: Call Information: Date and Time of Contact: 03/10/2023 12:00 PM Method of Contact: By Phone Contact Type: Prescriptions Contactor: [facility] Contactee: Patient Contact Outcome: Left message and Call back later Shipping/Pickup: Medication Name: Mycophenolate ; Tacrolimus Contact Info: Specialty ([place]) [phone] [facility] [phone] [facility] [phone] David [phone] Bedside Delivery ([facility]) [phone] [facility] RX OUTREACH ADVANCED: Call Information: Date and Time of Contact: 03/12/2023 10:32 AM Method of Contact: By Phone Contact Type: Prescriptions Contactor: [facility] OP Contactee: Patient Contact Outcome: Left message Shipping/Pickup: Medication Name: Mycophenolate sodium (MYFORTIC) 180 MG Tab tacrolimus 0.5 mg Contact Info: Specialty ([place]) [phone] Jakob [phone] [facility] [phone] David [phone] Bedside Delivery ([facility]) [phone] documented in this encounter [facility] 01-16-2023 History of Present illness Narrative [...] GUIDANCE 05/17/2022 Surgeon: Enzo Heart DO; Location: [facility] INTERVENTIONAL RADIOLOGY (VIR) LIVER TRANSPLANT, ORTHOTOPIC N/A 04/12/2020 Laterality: N/A; Surgeon: LU Palma; Location: [facility] SAME DAY SURGERY MAIN OR KIDNEY TRANSPLANT W/O HOLY CROSS NEPHRECTOMY N/A 04/12/2020 Laterality: N/A; Surgeon: LU Palma; Location: [facility] SAME DAY SURGERY MAIN OR [...] 0.3 12/29/2022 Explant Pathology Pathologic Diagnosis A. [place] liver, orthotopic liver transplant resection (1458 gram): [...] A/P with IV contrast (06/27/2022): 1. Both [place] kidneys are atrophic with improvement in right-sided [...] frequent nighttime urination, etc). Daisha Max DO [place] Former Machine Operator Gastroenterology, Hepatology and Nutrition [facility] Pager: [phone] Images from the original note were not included. 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 Car Stereo Installer: Anayeli Burt Date of Liver Transplant: 04/13/2020 (Kidney), 04/13/2020 (Liver) 2 years, 8 months post Liver/Kidney Transplant Primary Disease: Hypertensive Nephrosclerosis Transplant Hired Hand: Steve Latham Primary Care physician: Zuly Bruno [...] levels: No results found for: CYCLOSPORIN, CYCLOSPORIN2, [id number], CYCLORAND No components found for: CYCLOSPORINE, 2HR [...] hours. ADDITIONAL INFORMATION: None Specified [id number] [place] [address] - [address] [facility] [address] [facility] [address] [facility] [address] [facility] [address] [id number] [place] [address] [address] [facility] [address] [facility] [address] [facility] [address] [place] [address] ROS and SCREEN: Chest Pain: negative Cough: [...] ADDRESS WITH PHYSICIAN: documented in this encounter [facility] 01-16-2023 Instructions José Miguel Garnica RN - 01/16/2023 9:40 AM EST - Labs Every 2 months - Discuss night time urination with your PCP - Schedule Colonoscopy through PCP - Follow up in 1 year documented in this encounter [facility] 09-10-2022 History of Present illness Narrative [...] and no hydronephrosis. Some reflux up the [place] right ureter but good drainage of both transplant and [place] ureter to the bladder. Nephrostomy tube was [...] transplant, orthotopic (N/A, 04/12/2020); kidney transplant w/o [place] nephrectomy (N/A, 04/12/2020); and placement nephrostomy catheter [...] Negative for , diarrhea, constipation Genitourinary: See [place] Neurological: Negative for headaches. Lymph/Heme: Negative for [...] x 4, Normal strength. No edema. Skin: [place], warm, and dry. There are no rashes [...] a DDRT to the [facility] in 2019. Previously placed nephrostomy tube in transplant kidney with concern for stone or obstruction. Repeat nephrostogram on 07/07 without filling defects and no hydronephrosis. Some reflux up the [place] right ureter but good drainage of both transplant and [place] ureter to the bladder. Nephrostomy tube was [...] MD 09/10/22 documented in this encounter [facility] 07-07-2022 History of Present illness Narrative [...] assisted off the table and escorted to salon receptionist where they made a follow up. [...] yo male with a DDRT to the [facility] in 2019. Nephrostomy tube placed 05/17/22 [...] to have transplant ureter with anastomosis to [place] right ureter. Nephrostogram without filling defects and no hydronephrosis. Some reflux up the [place] right ureter but good drainage of both transplant and [place] ureter to the bladder. Nephrostomy tube was removed without issue. Patient does have some sensation of incomplete bladder emptying and occasional sensation in his right flank. PVR today was 33cc. Will re-evaluate urinary symptoms at next appointment. --continue Flomax --RTC in one month flow flow/PVR/IPSS Patient to call with any additional questions or concerns. Ryan Yepez MD 07/07/22 documented in this encounter [facility] 06-27-2022 History of Present illness Narrative [...] transplant, orthotopic (N/A, 04/12/2020); kidney transplant w/o [place] nephrectomy (N/A, 04/12/2020); and placement nephrostomy catheter [...] Negative for , diarrhea, constipation Genitourinary: See [place] Neurological: Negative for headaches. Lymph/Heme: Negative for [...] x 4, Normal strength. No edema. Skin: [place], warm, and dry. There are no rashes [...] yo male with a DDRT to the [facility] in 2019. Nephrostomy tube placed 05/17 [...] bag if needed. documented in this encounter [facility] 06-27-2022 History and physical note Patient was evaluated in clinic as a nurse visit. Please refer to Rena Brewster's note. [facility] Work Phone: 06-27-2022 History and physical note Patient was evaluated in clinic as a nurse visit. Please refer to Rena Brewster's note. documented in this encounter [facility] 06-27-2022 History of Present illness Narrative TEACHING REGARDING TX NEPH COMPLETED-NEPH TUBE SITE DRY AND INTACT-CLEAR YELLOW URINE IN THE BAG-INSTRUCTED ABOUT FLUSHING, BAG CHANGING ETC. NUMEROUS QUESTIONS ASKED AND ANSWERED-VERBALIZED UNDERSTANDING documented in this encounter [facility] 06-18-2022 Note EXAMINATION: CT ABD/ PELVIS [...] mass or enlargement. KIDNEYS: Marked atrophy of [place] kidneys. Transplant right pelvic kidney with percutaneous [...] by: MÓNICA JIMENEZ Date: 2022-06-18 13:53 [facility] 06-12-2022 Instructions Anayeli Christianson RN - 06/12/2022 3:21 PM EDT Do not take apart/disrupt nephrostomy tube system. Call Interventional Radiology and/or on-call transplant nurse [phone] for instruction if need to flush (clot or decreased flow). Take cipro 500mg, one tablet, twice per day for 14 days documented in this encounter [facility] 06-12-2022 History of Present illness Narrative Images from the original note were not included. 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 Car Stereo Installer: Anayeli Burt Date of Liver Transplant: 04/13/2020 (Kidney), 04/13/2020 (Liver) 2 year, 1 months post Liver/Kidney Transplant Primary Disease: Hypertensive Nephrosclerosis Transplant Hired Hand: Steve Latham Primary Care physician: Zuly Bruno [...] Non-obstructing kidney stone in renal graft at [facility]. Percutaneous Neph Tube placed Images from the original note were not included. Nursing Assessment In Clinic (see Clinic Prep Sheet for additional information) Patient is accompanied to clinic today by: self Did patient require a wheelchair or medical transport for appointment: no Did front desk clerk confirm current address and [...] LAB AND PHARMACY: None Specified [facility] [place] [address] - [address] [facility] [address] [facility] [phone] [facility] [address] [facility] [address] [id number] [place] [address] [address] [facility] [address] [facility] [address] [facility] [address], [place] [address] [facility] [address] ROS and SCREEN: Chest Pain: negative Cough: negative SOB: negative Abd Pain: negative Nausea: positive Vomiting: negative Diarrhea: negative Constipation: negative Dysuria: positive Edema: negative Tremors: negative Headaches: negative Wound issues: negative Pt has neph tube w clear yellow urine. States he had a small clot that he dislodged QUESTIONS OR CONCERNS TO ADDRESS WITH PHYSICIAN: I saw George Styles at the [facility] on 06/12/2022. Patient is a 52 y.o. 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 His skokom[place] kidney disease was noted to be presumed [...] 04/12/2020 Laterality: N/A; Surgeon: LU Palma; Location: [facility] SAME DAY SURGERY MAIN OR KIDNEY TRANSPLANT W/O HOLY CROSS NEPHRECTOMY N/A 04/12/2020 Laterality: N/A; Surgeon: LU Palma; Location: [facility] SAME DAY SURGERY MAIN OR [...] you have any questions. Steve Latham MD lead software developer Division of Nephrology [facility] documented in this encounter [facility] 06-04-2022 Instructions TATI GROVE - 06/04/2022 11:04 AM EDT Thank you for joining us for your neph tube follow up. We recommend routine exchange every 8-10 weeks. Please reach out at [phone] when it is time to set your next routine exchange. Thank you IR clinic documented in this encounter [facility] 06-04-2022 History of Present illness Narrative [...] exchange. Verbalized understanding. documented in this encounter [facility] 05-20-2022 Note Formatting of this n [...] time of his discharge. Leon Cook RN [facility] 05-20-2022 Miscellaneous Notes Patient discharged. AVS [...] provide teaching before his discharge Leon RN #[id number] Leon Cook RN Afternoon assessment completed at [...] Interdisciplinary Rounds/Family Conf Outcome: Ongoing Discussed with [facility] re: possible urine culture performed at their facility. However, based on urinalysis completed at that time, which was only notable for hematuria, culture was not performed and sample no longer feasible for culture. Liam Julian MD Internal Medicine/Pediatrics, PGY-3 2003: Cloud9 IDEIS message sent to Dr Justyn Wen, regarding [...] Kallie Lorenzana RN documented in this encounter [facility] 05-20-2022 Note Formatting of this n [...] discharge/transition of care. Outcome: Adequate for Discharge [facility] 05-20-2022 Note Formatting of this n ote might be different from the original. Anne Dillard MD R10 Rm 1002 Jensen George Please let's have a clear order on how the nephrostomy site dressing need to be changed when the patient goes home so we provide teaching before his discharge Leon RN #[id number] Leon Cook RN [facility] 05-20-2022 History of Present illness Narrative Images from the original note were not included. [facility] Note: [facility] received the following discharge prescription(s): Medication reconciliation was completed with comparison to discharge reconciliation report. The prescription(s) will be delivered to the patient's bedside on 05/20/22. Total cost is $0. Yanira Her RPh,PharmD Specialty ([place]) [phone] [facility] [phone] [facility] [phone] [place] [phone] [place] [phone] Bedside Delivery ([facility]) [phone] Attending I saw George Styles at the [facility] on 05/19/2022. I saw and [...] Daily Progress Note Patient: George Styles, 1970, [id number] Physician: Liam Julian MD, PGY-3, Pager #[phone], [email or web address] Subjective/Interval History: No acute events overnight. Passed [...] Saldana MD Division of Hospital Medicine Pager [phone] Attending I saw George Styles at the [facility] on 05/18/2022. I saw and [...] Nishant Gamez MD 5 mg at 05/17/22 1826 polyethylene glycol (MIRALAX) packet 17 g 17 [...] Daily Progress Note Patient: George Styles, 1970, [id number] Physician: Nishant Gamez MD, PGY2, Pager #[phone], [email or web address] Subjective/Interval History: Nephrostomy tube placed yesterday with a lot of urine output and significant improvement in creatinine. Objective: Vitals: 05/18/22409 BP: 190/86 Pulse: 83 Resp: Temp: 98.4 F (36.9 C) O2 Device: room air (05/18/22409) Flow (L/min): 3 (05/17/22 511) Gen: NAD, well-appearing HENT: NCAT, EOMI, MMM [...] to have stablized for this to be escrow representative. Daya ([place]unu) Jeff Saldana MD Division of Hospital Medicine Pager [phone] Internal Medicine Daily Progress Note Patient: George Styles, 1970, [id number] Physician: Nishant Gamez MD, PGY2, Pager #[phone], [id number] Subjective/Interval History: Worsening creatinine this morning with minimal urine output. Paged IR to let them no of his worsening kidney function. They plan for nephrostomy tube placement this morning. Objective: Vitals: 06/18/22 0334 BP: 134/71 Pulse: 122 Resp: 20 [...] Saldana MD Division of Hospital Medicine Pager [phone] Attending I saw George Styles at the [facility] on 05/17/2022. I saw and [...] of chart and discussion with treatment team, Hog Killer has not identified needs at this time. [...] follow. Introduced self and role of the oilseed meat presser to patient. Provided emotional and spiritual support and the patient responded by sharing their experience and discussed the following: - Spirituality/Yazidism Affiliation: As a kid attended [employer] but not a strong identity now - Family support - pt's brothers live close by Induction Machine Setter provided: - Supportive presence - Active listening - Validation of feelings/emotions Patient encouraged to request a oilseed meat presser as needed. Chaplains are available in-house 24 hours a day and 7 days a week. For urgent matters in [facility], please page [phone]. If the request is not urgent, please enter a consult. Consults are responded to within 24 hours. Angie Singh Mdiv, [facility] Trans[facility] [place] [address] Induction Machine Setter [facility] Induction Machine Setter [place] [id number] [email or web address] 22/06 [facility] Pager [phone] 22/06 Pager ,BS, and Brock 1500 22/06 [place] Pager [phone] 05/16/22 1129 Clinical Encounter Type Visited With Patient Visit Type Introduction Pastoral Time Spent 15 min Referral Other (See Comment) (Rounding) Spiritual Assessment Spiritual Observation Spirituality helpful;Identifies as (see comment) (Uatsdin) Emotional Observation Coping well Hope Observation Hopeful and accepting Support Observation By Family Interventions Provided Active listening;Supportive presence Facilitated Verbalization of feelings;Sharing of life story;Identifying support system Explored Expectations Street Railway Line Installer Education Street Railway Line Installer Service Available Yes Educated Patient Outcomes Patient Outcomes Articulated purpose/meaning Plan of Care Continue Visiting PRN Internal Medicine Daily Progress Note Patient: George Styles, 1970, [id number] Physician: Nishant Gamez MD, PGY2, Pager #[phone], [email or web address] Subjective/Interval History: Overall feeling okay this morning. 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 [...] Supervision Transfer Assessment: Sit to Stand Transfer [place] Level: Sit->Stand: independent Skilled Intervention/Details: Sit->Stand: x1 from EOB Stand to Sit Transfer [place] Level: Stand->Sit: supervision Assistive Device: Stand->Sit: armed chair Skilled Rationale: Controlled descent for sitting, Verbal cues Gait/Functional Mobility: Gait Assessment [place] Level: Gait: supervision Assistive Device: Gait: gait belt Gait Distance (feet): 200 Gait Deviations Identified: decreased grace, decreased step length, decreased stride length Gait Skilled Rationale: verbal, upright posture Skilled Intervention/Details - Gait: Pt with steady gait without LOB or complaints of SOB. Stairs: Stairs Assessment [place] Level: Stair Negotiation: stand-by assist Assistive Device: Stair Negotiation: gait belt, left rail (ascending) Number of stairs: 9 Stairs Skilled Rationale: reciprocal pattern Outcome Score(s): [facility] Basic Mobility Inpatient Short Form Turning over in bed: 4 - No Assistance Sitting/standing from chair: 4 - No Assistance Moving from lying on back to sittin - No Assistance Moving to and from bed to chair: 4 - No Assistance Walk in hospital room: 3 - A Little Assistance Climbing 3-5 steps with a railin - A Little Assistance [facility] Mobility Raw Score: 22 CURRENT [facility] Mobility Functional Limitation/Modifier: 20.91% Currently Impaired in [...] reported no concerns with discharging home with papillion support. 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 [...] Assessment: Transfer Assessment: Sit to Stand Transfer [place] Level: Sit->Stand: independent Skilled Rationale: Cues for increased safety Skilled Intervention/Details: Sit->Stand: x1 EOB Stand to Sit Transfer [place] Level: Stand->Sit: supervision Assistive Device: Stand->Sit: gait belt, armed chair Skilled Rationale: Verbal cues, Controlled descent for sitting, Cues for increased safety Skilled Intervention/Details: Stand->Sit: cues for hand placement and controlled descent Functional Mobility: Functional Mobility [place] Level: Functional Mobility/Gait: stand-by assist Assistive Device: Functional Mobility/Gait: gait belt Functional Mobility Distance: Distance needed for limited community mobility Functional Mobility Deficits: Activity tolerance, Balance, Decreased step length, Generalized weakness Functional Mobility Skilled Rationale: Verbal cues, Facilitate postural control Skilled Intervention/Details - Functional Mobility/Gait: cues for upright posture Outcome Score(s): [facility] Daily Activity Inpatient Short Form Putting on/Taking Off Lower Body Clothin - A Little Assistance Bathin - A Little Assistance Toiletin - A Little Assistance Putting on/Taking Off Upper Body Clothin - No Assistance Groomin - No Assistance Eatin - No Assistance [facility] Activity Raw Score: 21 [facility] Activity Functional Limitation/Modifier: 32.79% Currently Impaired in [...] DAY SURGERY MAIN OR KIDNEY TRANSPLANT W/O HOLY CROSS NEPHRECTOMY N/A 04/12/2020 Laterality: N/A; Surgeon: LU Palma; Location: [facility] SAME DAY SURGERY MAIN OR [...] by: Mel Norman OT, OTR/L License #: [id number] pager # [phone] 05/20/2022 Upon discontinuation of Acute Care Occupational Therapy Services or patient discharge from the hospital this note represents the current Occupational Therapy Discharge Summary. documented in this encounter [facility] 05-20-2022 Hospital course Narrative Discharge Summary [...] during his recent hospital stay at [facility]. As you may know, George Styles, [...] Saldana MD Division of Hospital Medicine p: [phone] f: [phone] CONSULTS DURING ADMISSION: IP CONSULT TO SURGERY - UROLOGY IP CONSULT TO NEPHROLOGY - TRANSPLANT (MEDICINE) IP CONSULT TO INTERVENTIONAL RADIOLOGY IP CONSULT TO PHYSICAL THERAPY IP CONSULT TO OCCUPATIONAL THERAPY IP CONSULT TO PHARMACY BEDSIDE DISCHARGE MED DELIVERY IMAGING / PROCEDURES / RESULTS: Should you require further information or copies of results or reports please contact Medical Information Management @ [phone] LABS AT TIME OF DISCHARGE: Lab Results [...] AT DISCHARGE: Zuly Bruno [address] / [place] [address] MEDICATIONS: Discharge Orders CT ABDOMEN/PELVIS WITHOUT CONTRAST [...] CAPS Generic drug: docusate Follow-up: Zuly Bruno, PERSONAL FITNESS MANAGER [address] [facility] [address] Schedule an appointment as soon as possible for a visit Follow-up appointment with your, primary care physician within 7-10 days, after discharge. [address] [facility] [id number] Follow up The department of urology will [...] Phone 06/04/2022 10:40 AM IR LEWIS MACIEL [facility] Interventional Radiology Clinic [phone] 06/27/2022 1:30 PM [facility], [facility] Department of Radiology Arrive at: Arrive to First Floor Registration Desk [phone] 06/27/2022 2:40 PM Ryan Yepez [facility] [place] Arrive at: Arrive to 2nd Floor, Registration [address] 10/31/2022 1:00 PM Steve Latham [facility] [phone] 01/16/2023 9:40 AM TRANSPLANT HEPATOLOGY 3, [facility] [phone] Associated attestation - Daya Saldana MD - [...] Saldana MD Division of Hospital Medicine Pager [phone] documented in this encounter [facility] 05-20-2022 Hospital Discharge instructions Giulia Cavaozs RN - 05/20/2022 7:43 AM EDT Images [...] be changed by Interventional Radiology. Please call [phone] to schedule this appointment and with any questions or concerns you may have regarding the nephrostomy tube. If you have questions or concerns, please call Interventional Radiology at SOMEONE FROM INTERVENTIONAL RADIOLOGY WILL CALL YOU FOR A FOLLOW UP IN THE IR CLINIC Giulia Cavazos RN Nurse Coordinator Interventional Radiology Interventional Radiology Outpatient scheduling documented in this encounter [facility] 05-19-2022 Note Formatting of this n [...] Ongoing Goal: Interdisciplinary Rounds/Family Conf Outcome: Ongoing [facility] 05-19-2022 Note Formatting of this n ote might be different from the original. Discussed with [facility] re: possible urine culture performed at their facility. However, based on urinalysis completed at that time, which was only notable for hematuria, culture was not performed and sample no longer feasible for culture. Liam Julian MD Internal Medicine/Pediatrics, PGY-3 [facility] 05[facility]18[facility] Note Formatting of this n ote might be different from the original. 2002: IHIS message sent to Dr Justyn Wen, regarding patient passing a small kidney stone, about the size of pea. notified. Stone left in strainer in pt bathroom. 499: IHIS message sent to Dr Justyn Wen, regarding pt BP 174/77. [facility] 05-18-2022 Note Formatting of this n [...] outcomes by discharge/transition of care. Outcome: Ongoing [facility] 05-18-2022 Note Formatting of this n [...] becomes hyponatremic, NS should instead be used. [facility] Work Phone: 05-18-2022 Note Formatting of this n ote might be different from the original. IHIS chat sent to Dr Tray Quintana, regarding pt BP 190/86. Pt complaining of pain at site of neph tube. PRN pain medication given per order parameters. Pt denies any other symptoms at this time. notified and aware. [facility] 05-17-2022 Note Formatting of this n ote might be different from the original. At 0900, I rounded with Dr. Gamez and Dr. Saldana. At that time I checked Mr. Styles's vital signs. His pulse oximeter was low and he was tachypneic. Verbal order at bedside to put nasal cannula on starting at 2liters oxygen and to provide incentive spirometer. [facility] 05-17-2022 Note Formatting of this n ote might be different from the original. Interventional Radiology procedure completed with IR Attending Dr. Heart / Dr. Le of percutaneous right nephrostomy tube placement transplant kidney 10.2 Fr Griffin acosta Pt tolerated procedure with moderate sedation local numbing agent . Transported to inpatient after phase I recovery. Post procedure orders in place. [facility] 05-16-2022 Note Formatting of this n ote might be different from the original. At 1530, I text chavad Kaitlynn Gomez MD that patient has only had 25ml urine output in matias this afternoon. [facility] 05-16-2022 Note Formatting of this n [...] with questions. Evan Byrd MD Urology, PGY-2 #[id number] [facility] Work Phone: 05-16-2022 Note Formatting of this n ote might be different from the original. I certify that this patient requires inpatient services at this time. I anticipate the expected length of stay will include at least two midnights. Inpatient services are due to the following medical concerns Obstructive kidney stone. Plans for post hospitalization care will be discharge to home. [facility] 05-16-2022 Consult note Associated Order (s): IP CONSULT TO NEPHROLOGY - TRANSPLANT (MEDICINE) I saw George Styles at the [facility] on 05/16/2022. Reason for Consultation: [...] he was given flomax and sent home. Thaxton better but noticed more pain and decreased [...] best assessment and recommendations. Maxi Pringle MD [facility] Work Phone: 05-16-2022 Consult note Associated Order (s): IP CONSULT TO NEPHROLOGY - TRANSPLANT (MEDICINE) I saw George Styles at the [facility] on 05/16/2022. Reason for Consultation: [...] he was given flomax and sent home. Thaxton better but noticed more pain and decreased [...] states he went to his local ED [place] and he was put on Flomax and he did improve. Pt states last night he was unable to void with severe right sided abd pain. Pt states nausea and no vomiting or fevers. Pt states he went back to [place] ED at 0100 and they placed a [...] orthotopic (N/A, 04/12/2020); and kidney transplant w/o sk[place] nephrectomy (N/A, 04/12/2020). 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 The sk[place] kidneys are progressively atrophic bilaterally compared to [...] of 06/14/2020 are no longer present. The [place] distal right ureter is decompressed beyond this [...] with surgical history for renal graft and [place] right urinary drainage, as a discrete ureteroneocystostomy is not identified, and the graft may be draining via a ureteroureterostomy. Urology consultation recommended. 3. The [place] kidneys are bilaterally atrophic, with right renal sinus calcifications consistent with nonobstructing right [place] renal calculi up to 6 mm. Normal [...] PGY-3, Department of Urologic Surgery Pager #: [phone] Associated attestation - Ryan Yepez MD - [...] continue flomax documented in this encounter [facility] 05-16-2022 Note Formatting of this n [...] supported Trust Relationship/Rapport: care explained choices provided [facility] 05-16-2022 Note Formatting of this n ote might be different from the original. On admission to [facility], a dual RN initial assessment of skin condition was performed by Kallie Lorenzana RN and Sheri Arguelles RN. Skin Assessment: WDL Jose Score: 20 LDA Added:N Kallie Lorenzana RN [facility] 05-15-2022 Emergency department Note Report given to Kallie RN at [facility] 05-15-2022 Emergency department Note Report given to Kallie RN at [facility] Bladder scan with Dr Villatoro at [...] DAY SURGERY MAIN OR KIDNEY TRANSPLANT W/O HOLY CROSS NEPHRECTOMY N/A 04/12/2020 Laterality: N/A; Surgeon: LU Palam; [...] Schneider MD Resident 05/15/222030 Pt arrives from [facility] with kidney stones. Pt states he had right lower abd pain and right flank pain with blood in his urine since Thursday. Pt states he went to his local ED [place] and he was put on Flomax and he did improve. Pt states last night he was unable to void with severe right sided abd pain. Pt states nausea and no vomiting or fevers. Pt states he went back to [place] ED at 0100 and they placed a matias and CT scan completed and multiple kidney stones noted. [facility] liver and kidney transplant in 03/2020. documented in this encounter [facility] 05-15-2022 History and physical note Internal Medicine Admission History & Physical Patient: George Styles, 1970, [id number] Physician: Evan Bennett MD, PGY1, Pager #[phone], GM 4 service Date of face to [...] 04/12/2020 Laterality: N/A; Surgeon: LU Palma; Location: [facility] SAME DAY SURGERY MAIN OR KIDNEY TRANSPLANT W/O HOLY CROSS NEPHRECTOMY N/A 04/12/2020 Laterality: N/A; Surgeon: LU Palma; Location: [facility] SAME DAY SURGERY MAIN OR [...] erythema: Skin: No jaundice or rash Neuro: gerontology aide 3-7, 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 Strength grossly [...] dilation of the calyces may represent narrowing/partial [id number] ofthe ureter and mild hydronephrosis or sequela [...] MD Division of Hospital Medicine [phone] [facility] Work Phone: 05-15-2022 History and physical note Internal Medicine Admission History & Physical Patient: George Styles, 1970, [id number] Physician: Evan Bennett MD, PGY1, Pager #[phone], GM 4 service Date of face to [...] 04/12/2020 Laterality: N/A; Surgeon: LU Palma; Location: [facility] SAME DAY SURGERY MAIN OR KIDNEY TRANSPLANT W/O HOLY CROSS NEPHRECTOMY N/A 04/12/2020 Laterality: N/A; Surgeon: LU Palma; Location: [facility] SAME DAY SURGERY MAIN OR [...] erythema: Skin: No jaundice or rash Neuro: gerontology aide 3-7, 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 Strength grossly [...] dilation of the calyces may represent narrowing/partial [id number] ofthe ureter and mild hydronephrosis or sequela [...] Medicine [id number] documented in this encounter [facility] 05-15-2022 Emergency department Note Bladder scan with Dr Villatoro at bedside, 14ml noted [facility] 05-15-2022 Consult note Associated Order (s): [...] states he went to his local ED [place] and he was put on Flomax and he did improve. Pt states last night he was unable to void with severe right sided abd pain. Pt states nausea and no vomiting or fevers. Pt states he went back to [place] ED at 0100 and they placed a [...] orthotopic (N/A, 04/12/2020); and kidney transplant w/o [place]omish nephrectomy (N/A, 04/12/2020). 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 The [place] kidneys are progressively atrophic bilaterally compared to [...] of 06/14/2020 are no longer present. The [place] distal right ureter is decompressed beyond this [...] with surgical history for renal graft and [place] right urinary drainage, as a discrete ureteroneocystostomy is not identified, and the graft may be draining via a ureteroureterostomy. Urology consultation recommended. 3. The [place] kidneys are bilaterally atrophic, with right renal sinus calcifications consistent with nonobstructing right [place] renal calculi up to 6 mm. Normal [...] PGY-3, Department of Urologic Surgery Pager #: [phone] Associated attestation - Ryan Yepez MD - [...] the future before surgical intervention --may continue [employer] [facility] Work Phone: 05-15-2022 Emergency department Note Advised Dr Schneider concerning no urine output via matias catheter. [facility] 05-15-2022 Physician Emergency department Note ED [...] plan of care. Gian Villatoro MD 05/15/222003 [facility] Work Phone: 05-15-[address] Schneider made aware of only 30 ml urine via matias since arrival to room. [facility] 05-15-2022 Physician Emergency department Note dEPARTMENT [...] DAY SURGERY MAIN OR KIDNEY TRANSPLANT W/O HOLY CROSS NEPHRECTOMY N/A 04/12/2020 Laterality: N/A; Surgeon: LU [...] any incorrections. Matt Schneider MD Resident 05/15/222030 [facility] Work Phone: 05-15-2022 Emergency department Note Pt arrives from [facility] with kidney stones. Pt states he had right lower abd pain and right flank pain with blood in his urine since Thursday. Pt states he went to his local ED [place] and he was put on Flomax and he did improve. Pt states last night he was unable to void with severe right sided abd pain. Pt states nausea and no vomiting or fevers. Pt states he went back to [place] ED at 0100 and they placed a matias and CT scan completed and multiple kidney stones noted. Pt sent to [facility] ED as he had liver and kidney transplant in 03/2020. [facility] 03-14-2022 History of Present illness Narrative [...] No Mailing/Pickup Date: 03/17/2022 Shipping Address: [address] [place] [address] Contact Info: Specialty ([place]) [phone] Jakob [phone] [facility] [phone] David [phone] Bedside Delivery ([facility]) [phone] documented in this encounter [facility] 06-14-2021 History of Present illness Narrative [...] 05/16/22 Goal Progress: Satisfactory Contact Info: Specialty ([place]) [phone] [facility] [phone] [facility] [phone] [facility] [phone] Bedside Delivery ([facility]) [phone] [facility] OUTREACH: Call Information: Date [...] Location: Home Signature Required: Yes Shipping Address: [address] [place] [address] [address] [address] Contact Info: Specialty ([place]) [phone] Jakob [phone] [facility] [phone] David [phone] Bedside Delivery ([facility]) [phone] documented in this encounter [facility] Evaluation note Diagnosis FAYE (acute kidney injury)- Primary Acute kidney failure, unspecified Hydronephrosis due to obstruction of ureteral orifice Hydronephrosis due to obstruction of ureteral orifice FAYE (acute kidney injury) Acute kidney failure, unspecified [facility] Diagnosis Follow-up exam- Primary Unspecified follow-up examination [facility] Diagnosis Immunosuppressed status- Primary Unspecified disorder of immune mechanism Kidney replaced by transplant Liver replaced by transplant Abnormal blood chemistry Other abnormal blood chemistry High risk medication use Encounter for long-term (current) use of other medications Aftercare following organ transplant Liver transplant recipient [facility] Diagnosis Attention to nephrostomy- Primary [facility] Diagnosis Other hydronephrosis- Primary [facility] Diagnosis FAYE (acute kidney injury) Acute kidney failure, unspecified [facility] Diagnosis Other hydronephrosis- Primary -donor kidney transplant recipient Kidney replaced by transplant [facility] Diagnosis Other hydronephrosis [facility] Diagnosis 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) Encounter for screening for malignant neoplasm of prostate Special screening for malignant neoplasm of prostate [facility] Diagnosis Abnormal blood chemistry- Primary Other abnormal blood chemistry Liver transplant recipient Kidney replaced by transplant Immunosuppressed status Unspecified disorder of immune mechanism Aftercare following [facility] Kidney replaced by transplant- Primary [facility] Diagnosis Immunosuppressed status- Primary Unspecified disorder of immune mechanism Kidney replaced by transplant Aftercare following organ transplant High risk medication use Encounter for long-term (current) use of other medications Other general symptoms and signs Abnormal blood chemistry Other abnormal blood chemistry Hypertension secondary to other renal disorders [facility] Diagnosis Histoplasmosis- Primary Histoplasmosis, unspecified [...] Fever Fever, unspecified [facility] Diagnosis Bilateral lower extremity edema- Primary 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) Atherosclerosis 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) Atherosclerosis of aorta Obesity (BMI 30-39.9) DARLENE (obstructive sleep apnea) Obstructive sleep apnea (adult) (pediatric) Tremor Abnormal involuntary movements Immunocompromised (CMS/HCC) Unspecified immunity deficiency Primary hypertension (CMS/HCC) Unspecified essential hypertension Shortness of breath documented in this encounter [facility]* Diagnosis Pleural effusion on [...] specified pre-operative examination [facility] Diagnosis Heart failure, diastolic, acute- Primary Acute diastolic heart failure [facility] Consultation (Routine) - New Request Specialty Diagnoses / Procedures Referred By Deni edwards Referred To Contact Interventional Radiology Diagnoses Hydronephrosis due to obstruction of ureteral orifice Daya Saldana MD [address] [place] [address] Referral ID Status Reason Start Date Expiration Date V isits Requested Visits Authorized [id number] New Request 05/18/2022 06/12/2023 1 1 * Radiology (Emergency) - New Request Specialty Diagnoses / Procedures Referred By Contac t Referred To Contact Procedures US RENAL TRANSPLANT SCAN Daya Saldana MD [address] [facility] [place] [address] Referral ID Status Reason Start Date Expiration Date V isits Requested Visits Authorized [id number] New Request 05/16/2022 06/10/2023 1 1 * Consultation (Routine) - New Request Specialty Diagnoses / Procedures Referred By Contac t Referred To Contact Urology Diagnoses FAYE (acute kidney injury) Ryan Yepez MD [address] [place] [address] [address] [place] [address] Referral ID Status Reason Start Date Expiration Date V isits Requested Visits Authorized [id number] New Request 05/16/2022 06/10/2023 1 1 * MRI/CAT Scan (Routine) - New Request Specialty Diagnoses / Procedures Referred By Contac t Referred To Contact Diagnoses FAYE (acute kidney injury) Procedures CT ABDOMEN/PELVIS WITHOUT CONTRAST CHG CT SCAN,ABDOMENT AND PELVIS,W/O CONTRAST Ryan Yepez MD [address] [place] [address] [address] [place] [address] Referral ID Status Reason Start Date Expiration Date V isits Requested Visits Authorized [id number] New Request 05/16/2022 06/10/2023 1 1 * (Routine) - Pending Review Specialty Diagnoses / Procedures Referred By Contac t Referred To Contact Procedures PLATELET MONITORING PER PROTOCOL Daya Saldana MD [address] [place] [address] Referral ID Status Reason Start Date Expiration Date V isits Requested Visits Authorized [id number] Pending Review 05/15/2022 06/09/2023 1 1 * (Routine) - Pending Review Specialty Diagnoses / Procedures Referred By Contac t Referred To Contact Procedures DVT/VTE RISK ASSESSMENT Daya Saldana MD [address] [place] [phone] Referral ID Status Reason Start Date Expiration Date V isits Requested Visits Authorized [id number] Pending Review 05/15/2022 06/09/2023 1 1 * (Routine) Specialty Diagnoses / Procedures Referred By Contac t Referred To Contact Evan Bennett MD [address] [place] [address] Referral ID Status Reason Start Date Expiration Date Visits Re quested Visits Authorized * (Routine) Specialty Diagnoses / Procedures Referred By Contac t Referred To Contact Evan Bennett MD [address] [place] [address] Referral ID Status Reason Start Date Expiration Date Visits Re quested Visits Authorized [facility] for referral (narrative)* Consultation (Routine) - New Request Specialty Diagnoses / Procedures Referred By Contac t Referred To Contact Sleep Medicine Diagnoses Kevin Conroy MD [address] [place] [address] Referral ID Status Reason Start Date Expiration Date V isits Requested Visits Authorized [id number] New Request 09/10/2023 10/04/2024 1 1 * MRI/CAT Scan (Routine) - New Request Specialty Diagnoses / Procedures Referred By Contac t Referred To Contact Diagnoses Histoplasmosis Procedures CT CHEST WITHOUT CONTRAST CHG DIAGNOSTIC COMPUTED TOMOGRAPHY THORAX W/O CNTRST Kevin Sage MD [address] [place] [address] Referral ID Status Reason Start Date Expiration Date V isits Requested Visits Authorized [id number] New Request 09/10/2023 10/04/2024 1 1 * Radiology (Routine) - New Request Specialty Diagnoses / Procedures Referred By Contac t Referred To Contact Procedures US RENAL TRANSPLANT SCAN Steve Latham MBBS [address] [place] [address] Referral ID Status Reason Start Date Expiration Date V isits Requested Visits Authorized [id number] New Request 08/29/2023 09/22/2024 1 1 * (Routine) - New Request Specialty Diagnoses / Procedures Referred By Contac t Referred To Contact Procedures PLATELET MONITORING PER PROTOCOL Steve Latham MBBS [address] [place] [address] Referral ID Status Reason Start Date Expiration Date V isits Requested Visits Authorized [id number] New Request 08/28/2023 09/21/2024 1 1 * (Routine) - New Request Specialty Diagnoses / Procedures Referred By Contac t Referred To Contact Procedures DVT/VTE RISK ASSESSMENT Steve Latham MBBS [address] [place] [address] Referral ID Status Reason Start Date Expiration Date V isits Requested Visits Authorized [id number] New Request 08/28/2023 09/21/2024 1 1 [facility] Instructions * Patient Instructions - Christin Elizabeth APRN-ROB - 10/19/2018 9:21 AM EST You should take an extra dose of the lactulose as needed so that you are having 3-4 bowel movementsdaily. You should start the chemical dependency counseling as soon as possible. If you have questions, call the transplant social worker masters Fidelina Pierson. in this encounter* Patient Instructions - Sophie Cary RN - 10/12/2018 11:09 AM EST You have been seen in the pre-transplant evaluation clinic by Dr. Restrepo and Sophie Cary. Sophie Cary is your pre-operations support coordinator she can be reached at [phone] at any time for questions during the pre-transplant process. Your evaluation is complete pendin. Abdominal ultrasound. 2. 6 minute walk test. 3. Cardiology evaluation. Additionally, your superintendent track will recommend testing to screen for coronary artery disease. This will be scheduled for you after your cardiology visit. 4. Your coordinator will be requesting record from your last dental visit, colonoscopy and EGD. 5. Please work to complete social work recommendations. Your social worker masters will be contacting you to follow up on your progress. 6. You have also been referred for a kidney transplant. An appointment will be scheduled for you sari evaluated in the kidney transplant clinic after you have satisfied requirements dictated by [employer] company. Once your testing is complete, we [...] ___ Other Name MRN * Christin Elizabeth, FLAME DEGREASER-PERSONAL FITNESS MANAGER - 10/19/2018 9:00 AM EST Formatting [...] was immediately prior to hospital admission in [place] for ACLF. Hospital course notable for ARF [...] (human immunodeficiency virus infection); Hyperlipidemia; Hyperthyroidism; Hypothyroidism; IA (myocardial infarction); Migraine; DARLENE (obstructive sleep apnea); [...] kidney transplant evaluation. Pt was AOx3. Transplant Ota role/function was explained and reviewed. The patient [...] and resources were offered. Pt identifies with JEW roman catholic. Pt confirms being a [place] Citizen. Pt.'s [...] has valid license, does not regularly drive (PERSONAL FITNESS MANAGER recommends that he not to drive). [...] related disease etoh cirrohosis April dx in [facility] for thirty days. Pt [...] as well as referred him to pre operations support coordinator. Pt and support demonstrated moderate understanding [...] Patient's brother David is a self employed farm contractor. Additional support includes his other brother Tyshawn and his Mary live fifteen minutes away. 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 He confirms being comfortable asking for [...] in 2010, he was employed by the [employer]. He has access to SSDI payment (SSDI starts in November) in regards to financial means pre/ post-transplant. Pt confirms (meeting bills currently, ) being able to meet daily needs. Patient's brother asking for additional information on community resources, food stamps and [place]. Refer him to pt.'s dialysis center and the [facility]. Hereports access to Medicaid. Pt. denies [...] court ordered treatment after a DUI charge [facility] in [place], court ordered treatment in 2001 and in [...] by patient from his primary medical provider- PERSONAL FITNESS MANAGER patient was noted as attending an alcohol [...] new visit Date of service: 10/12/2018 -Referring manager supply for today's consult: -Primary Care Provider: Zuly Bruno CC: Chief Complaint Patient presents with Liver Recipient Evaluation History of Present Illness George Styles is a 48 y.o. 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 Patient George Styles ([id number]), accompanied by his brother, was seen on [...] any further questions. Sophie GUERINN, RN Liver Car Stereo Installer Etiology: ETOH HCC: No ETOH: Yes Last [...] Yovani Orr MD [address] [address] Status Reason Specialty Diagnoses / Procedures Referred By Contact Referred To Contact New Request Diagnoses Cirrhosis of liver with ascites, unspecified hepatic cirrhosis type Procedures US ABDOMEN RUQ/LIVER/GB Yovani Orr MD [address] [address] Specialty Diagnoses / Procedures Referred By Contac t Referred To Contact Diagnoses FAYE (acute kidney injury) Procedures CT ABDOMEN/PELVIS WITHOUT CONTRAST CHG CT SCAN,ABDOMENT AND PELVIS,W/O CONTRAST Central Scheduling [address] [place] [address] Referral ID Status Reason Start Date Expiration Date V isits Requested Visits Authorized [id number] Pending Review 05/16/2022 06/10/2023 1 1 Specialty Diagnoses / Procedures Referred By Contac t Referred To Contact Diagnoses Other hydronephrosis Procedures FLUORO IMAGING FOR UROLOGY Ryan Yepez MD [address] [facility] [address] [place] [address] Referral ID Status Reason Start Date Expiration Date V isits Requested Visits Authorized [id number] New Request 07/07/2022 08/01/2023 1 1 Specialty Diagnoses / Procedures Referred By Contac t Referred To Contact Procedures DIRECT ADMIT REQUEST Steve Latham MBBS [address] [place] [address] Referral ID Status Reason Start Date Expiration Date V isits Requested Visits Authorized [id number] New Request 08/28/2023 09/21/2024 1 1 Specialty Diagnoses / Procedures Referred By Contac t Referred To Contact Radiology Diagnoses DARLENE (obstructive sleep apnea) Primary hypertension (CMS/HCC) Bilateral lower extremity edema Shortness of breath Procedures Echocardiogram 2D complete Zuly Bruno NP [address] [place] [address] Referral ID Status Reason Start Date Expiration Date Visits Requested Visits Authorized [id number] Incomplete Perform Procedure 01/06/2024 07/04/2024 1 1 Specialty Diagnoses / Procedures Referred By Contac t Referred To Contact Procedures US IMAGING REGIONAL ANESTHESIA Kehinde Gutierrez MD [address] [place] [address] Referral ID Status Reason Start Date Expiration Date V isits Requested Visits Authorized [id number] New Request 01/22/2024 02/15/2025 1 1 Specialty Diagnoses / Procedures Referred By Contac t Referred To Contact Cardiovascular Medicine Diagnoses Heart failure, diastolic, acute Kelvin Pacheco MD, MBBS [address] [place] [address] Referral ID Status Reason Start Date Expiration Date V isits Requested Visits Authorized [id number] New Request 01/20/2024 02/13/2025 1 1 Specialty Diagnoses / Procedures Referred By Contac t Referred To Contact Procedures US ABDOMEN LIVER DOPPLER US ABDOMEN LIVER TRANSPLANT DOPPLER Timothy Joseph MD [address] [facility] [address] [place] [address] Referral ID Status Reason Start Date Expiration Date V isits Requested Visits Authorized [id number] New Request 01/16/2024 02/09/2025 1 1 Specialty Diagnoses / Procedures Referred By Contac t Referred To Contact Procedures DVT/VTE RISK ASSESSMENT Kelvin Pacheco MD, MBBS [address] [place] [address] Referral ID Status Reason Start Date Expiration Date V isits Requested Visits Authorized [id number] New Request 01/16/2024 02/09/2025 1 1 Specialty Diagnoses / Procedures Referred By Contac t Referred To Contact Procedures PLATELET MONITORING PER PROTOCOL Kelvin Pacheco MD, MBBS [address] [place] [address] Referral ID Status Reason Start Date Expiration Date V isits Requested Visits Authorized [id number] New Request 01/16/2024 02/09/2025 1 1 Referral ID Status Reason Start Date Expiration Date V isits Requested Visits Authorized [id number] New Request 01/16/2024 02/09/2025 1 1 Specialty Diagnoses / Procedures Referred By Contac t Referred To Contact Procedures ECG Kelvin Pacheco MD, MBBS [address] [place] [address] Referral ID Status Reason Start Date Expiration Date V isits Requested Visits Authorized [id number] New Request 01/16/2024 02/09/2025 1 1 Advance Directives No Advanced Directives Records FoundDocuments on File Type Date Recorded Patient Audio Visual Secretary Expl anation Advance Directives and Living Will Power of Sand Cutter Latest Code Status on File Code [...] Yovani Orr MD [address] [address] Status Reason Specialty Diagnoses / Procedures Referre d By Contact Referred To Contact Denied Diagnoses Alcoholic cirrhosis, unspecified whether ascites present Pre-transplant evaluation for liver transplant Procedures MRI ABDOMEN WITH CONTRAST [place] MRI, ABDOMEN W/CONTRAST Yovani Orr MD [address] [place] [address] Reason Comments Liver Recipient Evaluation Status Reason Specialty Diagnoses / Procedures Referred By Contact Referred To Contact New Request Transplant / Transplant Surgery Procedures PRE NEW PATIENT Yovani Orr MD [address] [place] [address] Alfredito Restrepo MD [address] [place] [address] Reason Comments Reschedule Reason Comments Outside Medical Records Request Reason Comments Social Work Follow-up Reason Comments Kidney Stone Specialty Diagnoses / Procedures Referred By Contac t Referred To Contact Diagnoses Obstructing kidney stone, s/p kidney transplant 2019 Daya Saldana MD [address] [place] [address] [facility] [address] [place] [address] Referral ID Status Reason Start Date Expiration Date Visits Re quested Visits Authorized [id number] 1 1 Reason Comments Follow-up Reason Comments Kidney Recipient Follow-up Liver Recipient Follow-up Reason Comments Consult Reason Comments New Patient Hospital follow up Specialty Diagnoses / Procedures Referred By Contac t Referred To Contact Urology Diagnoses hosp fu with [address] prior Procedures NEW TO DOC/RET PATIENT Zuly Bruno, PERSONAL FITNESS MANAGER [address] [place] [address] Ryan Yepez MD [address] [place] [address] [address] [place] [address] Referral ID Status Reason Start Date Expiration Date Visits Re quested Visits Authorized [id number] Closed 06/27/2022 07/22/2023 1 1 Specialty Diagnoses / Procedures Referred By Contac t Referred To Contact Diagnoses FAYE (acute kidney injury) Procedures CT ABDOMEN/PELVIS WITHOUT CONTRAST CHG CT SCAN,ABDOMENT AND PELVIS,W/O CONTRAST Central Scheduling [address] [place] [address] Referral ID Status Reason Start Date Expiration Date V isits Requested Visits Authorized [id number] Pending Review 05/16/2022 06/10/2023 1 1 Reason Comments Follow-up Specialty Diagnoses / Procedures Referred By Contac t Referred To Contact Urology Diagnoses 1 week fu post NT clamp Procedures RETURN PATIENT Zuly Bruno, PERSONAL FITNESS MANAGER [address] [place] [address] Ryan Yepez MD [address] [place] [address] [address] [place] [address] Referral ID Status Reason Start Date Expiration Date Visits Requested Visits Authorized [id number] Authorized - 07/07/2022 08/01/2023 2 2 Specialty Diagnoses / Procedures Referred By Contac t Referred To Contact Diagnoses Other hydronephrosis Procedures FLUORO IMAGING FOR UROLOGY Ryan Yepez MD [address] [place] [address] [address] [place] [address] Referral ID Status Reason Start Date Expiration Date V isits Requested Visits Authorized [id number] New Request 07/07/2022 08/01/2023 1 1 Specialty Diagnoses / Procedures Referred By Contac t Referred To Contact Urology Diagnoses 1 week fu post NT clamp Procedures RETURN PATIENT Zuly Bruno, PERSONAL FITNESS MANAGER [address] [place] [address] Ryan Yepez MD [address] [facility] [address] [place] [address] Referral ID Status Reason Start Date Expiration Date Visits Re quested Visits Authorized [id number] Closed 07/07/2022 08/01/2023 2 2 Reason Comments Liver Recipient Follow-up Reason Comments Kidney Recipient Follow-up Reason Comments Kidney Recipient Follow-up Specialty Diagnoses / Procedures Referred By Contac t Referred To Contact Diagnoses Kidney replaced by transplant Steve Latham MBBS [address] [place] [address] [facility] [address] [place] [address] Referral ID Status Reason Start Date Expiration Date Visits Re quested Visits Authorized [id number] 1 1 Specialty Diagnoses / Procedures Referred By Contac t Referred To Contact Diagnoses Pleural effusion on right PNEUMONIA- HX LIVER AND KIDNEY TRANSPLANT Kevin Sage MD [address] [place] [address] [facility] [address] [place] [address] Referral ID Status Reason Start Date Expiration Date Visits Re quested Visits Authorized [id number] 1 1 Reason Comments New Patient Specialty Diagnoses / Procedures Referred By Contac t Referred To Contact Cardiovascular Medicine Diagnoses Heart failure, diastolic, acute Kelvin Pacheco MD, MBBS [address] 1[address] [place] [address] Referral ID Status Reason Start Date Expiration Date Visits Requested Visits Authorized [id number] Authorized - 01/20/2024 02/13/2025 5 5 (unrecognized sect ion and content) No Status Records FoundNo Status Records FoundNo Status Records FoundNo Status Records FoundNo Status Records FoundNo Status Records Found INFORMATION SOURCE (unrecogn ized section and content) DATE CREATED AUTHOR 01/07/2020 [facility] DATE CREATED AUTHOR AUTHOR'S ORGANIZ ATION 01/27/2021 [facility] DATE CREATED AUTHOR AUTHOR'S ORGANIZ ATION 05/11/2023 [facility] DATE CREATED AUTHOR AUTHOR'S ORGANIZ ATION 04/19/2024 [facility] EPIC DATE CREATED AUTHOR AUTHOR'S ORGANIZ ATION 05/08/2024 [facility] DATE CREATED AUTHOR AUTHOR'S ORGANIZ ATION 05/15/2024 [facility] Teams (unrecognized sec tion and content) Tractor Expert Relationship Specialty Start Date End Date Zuly Bruno CNP PCP - General 07/19/18 Comfort Rivera, [facility] [address] [facility] [address] [facility] [address] [place] [address] Pharmacist Pharmacist 05/16/20 Angel Carpio RP,PharmD Pharmacist Pharmacist 05/16/20 Te Leigh RP,PharmD Pharmacist Pharmacist 01/09/21 Tractor Expert Relationship Specialty Start Date End Date Zuly Bruno CNP PCP - General 07/19/18 Comfort Rivera, [facility] [address] [place] [address] Pharmacist Pharmacist 05/16/20 Angel Carpio RP,PharmD Pharmacist Pharmacist 05/16/20 Te Leigh RP,PharmD Pharmacist Pharmacist 01/09/21 Tractor Expert Relationship Specialty Start Date End Date Zuly Bruno CNP PCP - General 07/19/18 Tractor Expert Relationship Specialty Start Date End Date Zuly Bruno CNP PCP - General 07/19/18 Tractor Expert Relationship Specialty Start Date End Date Zuly Bruno CNP PCP - General 07/19/18 Tractor Expert Relationship Specialty Start Date End Date Zuly Bruno CNP PCP - General 07/19/18 Tractor Expert Relationship Specialty Start Date End Date Zuly Bruno CNP PCP - General 07/19/18 Tractor Expert Relationship Specialty Start Date End Date Zuly Bruno CNP PCP - General 07/19/18 Tractor Expert Relationship Specialty Start Date End Date Zuly Bruno CNP PCP - General 07/19/18 Tractor Expert Relationship Specialty Start Date End Date Zuly Bruno CNP PCP - General 07/19/18 Tractor Expert Relationship Specialty Start Date End Date Zuly Bruno CNP PCP - General 07/19/18 Tractor Expert Relationship Specialty Start Date End Date Zuly Bruno CNP PCP - General 07/19/18 Tractor Expert Relationship Specialty Start Date End Date Zuly Bruno CNP PCP - General 07/19/18 Tractor Expert Relationship Specialty Start Date End Date BrianlatishaZuly tipton CNP PCP - General 07/19/18 Tractor Expert Relationship Specialty Start Date End Date BrianlatishaZuly tipton CNP PCP - General 07/19/18 Tractor Expert Relationship Specialty Start Date End Date BrianlatishaZuly tipton CNP PCP - General 07/19/18 Tractor Expert Relationship Specialty Start Date End Date Lexielydiajose e ZulyROB feliz PCP - General 07/19/18 Evan White DO [address] [place] [id number] Infectious Disease Infectious Disease 09/09/23 Tractor Expert Relationship Specialty Start Date End Date Lexielydiajose e ZuylROB feliz PCP - General 07/19/18 Evan White DO [address] [place], [place] [id number] Infectious Disease Infectious Disease 09/09/23 Tractor Expert Relationship Specialty Start Date End Date Zuly Bruno ROB PCP - General 07/19/18 Evan White DO [address] [place] [address] Infectious Disease Infectious Disease 09/09/23 Tractor Expert Relationship Specialty Start Date End Date Momo Verdugo MD PCP - General Family Medicine 05/21/23 Tractor Expert Relationship Specialty Start Date End Date Momo Verdugo MD PCP - General Family Medicine 05/21/23 Tractor Expert Relationship Specialty Start Date End Date Momo Verdugo MD PCP - General Family Medicine 05/21/23 Tractor Expert Relationship Specialty Start Date End Date Zuly Bruno ROB PCP - General 07/19/18 Evan White DO [address] [place] [address] Infectious Disease Infectious Disease 09/09/23 Tractor Expert Relationship Specialty Start Date End Date Zuly Bruno ROB PCP - General 07/19/18 Evan White DO [address] [place] [address] Infectious Disease Infectious Disease 09/09/23 Tractor Expert Relationship Specialty Start Date End Date Zuly Bruno CNP PCP - General 07/19/18 Evan White DO [address] [place] [address] Infectious Disease Infectious Disease 09/09/23 Tractor Expert Relationship Specialty Start Date End Date Zuly Bruno CNP PCP - General 07/19/18 Evan White DO [address] [place] [address] Infectious Disease Infectious Disease 09/09/23 Tractor Expert Relationship Specialty Start Date End Date Zuly Bruno CNP PCP - General 07/19/18 Evan White DO [address] [place] [address] Infectious Disease Infectious Disease 09/09/23 Tractor Expert Relationship Specialty Start Date End Date Zuly Bruno CNP PCP - General 07/19/18 Tractor Expert Relationship Specialty Start Date End Date Zuly [...] Mel Hampton RN)1558 (Given - Provider: Mel Hampton, SAMI)2131 (Given - Provider: Carolyn Isaac RN) 0804 [...] MD) 0618 (Unheld by provider - Provider: Nisahnt Gamez MD)0930 (Given - Provider: Leon Cook [...] symptoms)1958 (Given - Provider: Carolyn Isaac RN) 1136 [...] Isaac RN) 08 (Given - Provider: Josey Braun, SAMI)2058 (Given - Provider: Carolyn Isaac RN) 0931 [...] CONTINUOUS, Starting on Thu05/18/22 at 1230, Until 05/18/22 at 1645 1557 ($$New Bag$$ - Provider: Mel Hamptno RN)1558 (Rate/Dose Verify - Provider: Carolyn Isaac [...] Josey Braun, SAMI)2104 (Given - Provider: Carolyn Isaac, SAMI) oxyCODONE HCl (ROXICODONE) tablet 10 mg(Linked Group 2) 10 mg, Oral, EVERY 4 HOURS NEEDED, Starting on Thu05/16/22 at 0614, Until Thu05/20/22 at 2110, Severe Pain 0338 (Given - Provider: Carolyn Isaac RN)0806 (Given - Provider: Mel Hampton, SAMI) 0825 [...] Provider: Automatic Transfer)2008 (Given - Provider: Tati Ahmaid RN) Itraconazole (SPORANOX) oral solution 100 mg 100 mg, Oral, EVERY 12 HOURS, First dose on 01/16/24 at 0900, Until Discontinued, Administer on an empty stomach. Hold tube feeds for 1 hour before and 2 hours after administration. 0843 (Given - Provider: Erica Gudino RN)2034 (Given - Provider: Tati Ahmadi RN) 0842 (Given - Provider: Terra Heart RN)1053 ([facility] Hold - Provider: Automatic Transfer - Reason: Transfer to a Procedural area)1414 ([facility] Unhold - Provider: Automatic Transfer)2008 [...] (Given - Provider: Terra Heart RN)105 ([facility] Hold - Provider: Automatic Transfer - Reason: Transfer to a Procedural area)141 ([facility] Unhold - Provider: Automatic Transfer)2008 (Given - Provider: Tati Ahmadi RN) 09 (Given - Provider: Terra Heart RN) Sulfamethoxazole-trime thoprim (BACTRIM DS) 800-160 MG per tablet 1 tablet 1 tablet, Oral, THREE TIMES WEEKLY (Once per day on Thursday), First dose on Thu01/18/24 at 0900, Until Discontinued 0846 (Given - Provider: Terra Heart RN)1052 ([facility] Hold - Provider: Automatic Transfer - Reason: Transfer to a Procedural area)141 ([facility] Unhold - Provider: Automatic Transfer) tacrolimus (PROGRAF) susp 0.2 mg 0.2 mg, Oral, CUSTOM FREQUENCY (Once per day on Thursday), First dose on 01/16/24 at 0900, Until Discontinued, Caution check route of administration. For sublingual administration, place liquid under tongue and allow absorption. 841 (Given - Provider: Erica Gudino RN) 1052 ([facility] Hold - Provider: Automatic Transfer - Reason: Transfer to a Procedural area)141 ([facility] Unhold - Provider: Automatic Transfer) 922 (Given - Provider: Terra Heart RN) Tamsulosin HCl (FLOMAX) capsule 0.4 mg 0.4 mg, Oral, DAILY, First dose on 01/16/24 at 0900, Until Discontinued, Slow release product. Do not chew or crush 841 (Given - Provider: Erica Gudino RN) 0841 (Given - Provider: Terra Heart RN)1052 ([facility] Hold - Provider: Automatic Transfer - Reason: Transfer to a Procedural area)141 ([facility] Unhold - Provider: Automatic Transfer) 09 [...] (Given - Provider: Terra Heart RN)1053 ([facility] Hold - Provider: Automatic Transfer - Reason: Transfer to a Procedural area)1414 ([facility] Unhold - Provider: Automatic Transfer) [...] all sources in 24 hours. 1053 ([facility] Hold - Provider: Automatic Transfer - Reason: Transfer to a Procedural area)1414 ([facility] Unhold - Provider: Automatic Transfer)1806 [...] mg and Simethicone 20 mg) 1053 ([facility] Hold - Provider: Automatic Transfer - Reason: Transfer to a Procedural area)1414 ([facility] Unhold - Provider: Automatic Transfer) guaiFENesin (ROBITUSSIN) oral solution 400 mg 400 mg, Oral, EVERY 6 HOURS NEEDED, Starting on 01/16/24 at 0202, Until 01/23/24 at 1752, Cough, Congestion 1053 ([facility] Hold - Provider: Automatic Transfer - Reason: Transfer to a Procedural area)1414 ([facility] Unhold - Provider: Automatic Transfer) [...] Until 01/23/24 at 1752, Insomnia 1053 ([facility] Hold - Provider: Automatic Transfer - Reason: Transfer to a Procedural area)1414 ([facility] Unhold - Provider: Automatic Transfer)2355 (Given - Provider: Tati Ahmadi RN) Ondansetron (ZOFRAN) tablet 4 mg(Linked Group 1) 4 mg, Oral, EVERY 6 HOURS NEEDED, Starting on 01/16/24 at 0202, Until 01/23/24 at 1752, Nausea / Vomiting, 1st line for Nausea/Vomiting 1053 ([facility] Hold - Provider: Automatic Transfer - Reason: Transfer to a Procedural area)1414 ([facility] Unhold - Provider: Automatic Transfer)1809 (See Alternative - Provider: Terra Heart RN) 0430 (See Alternative - Provider: Tati Ahmadi RN)1415 (Given - Provider: Terra Heart, SAMI) Ondansetron 4mg/2ml (ZOFRAN) injection 4 mg(Linked Group 1) 4 mg, Intravenous, EVERY 6 HOURS NEEDED, Starting on 01/16/24 at 0202, Until 01/23/24 at 1752, Nausea / Vomiting, 1st line for Nausea/Vomiting 1053 ([facility] Hold - Provider: Automatic Transfer - Reason: Transfer to a Procedural area)1414 ([facility] Unhold - Provider: Automatic Transfer)1809 [...] Tati Ahmadi RN) 0916 (Given - Provider: eTrra Heart RN) Sodium chloride 0.9% IV solution [...] BE BASED ON THE PRIMARY CLINICAL RECORDS. [facility]. provides no warranty or guarantee of the accuracy or completeness of information in this document.
[2024-05-16 07:38] LABS: Creatinine Urine Random 160.79 mg/dL (20.00-300.00); Protein Creatinine Ratio Urine 0.11; Total Protein Urine Random 17.3 mg/dL (<=11.9)
[2024-05-16 07:38] LABS: Alanine Aminotransferase 20 U/L (16-63); Albumin Level 3.7 g/dL (3.4-5.0); Alkaline Phosphatase 116 U/L (46-116); Anion Gap 12.7; Aspartate Amino Transferase 19 U/L (15-37); BUN Creatinine Ratio 14.5; Bilirubin Direct 0.2 mg/dL (0.0-0.2); Bilirubin Total 0.9 mg/dL (0.2-1.0); Calcium 9.2 mg/dL (8.5-10.1); Carbon Dioxide 27.4 mmol/L (21.0-32.0); Chloride 105 mmol/L (98-107); Estimated GFR (African America >60 (>=60); Estimated GFR (Non-African Ame >60 (>=60); Gamma Glutamyl Transpeptidase 18 U/L (15-85); Glucose 104 mg/dL (74-106); Magnesium 2.2 mg/dL (1.8-2.4); Phosphorus 3.3 mg/dL (2.6-4.7); Potassium 4.1 mmol/L (3.5-5.1); Sodium 141 mmol/L (136-145)
[2024-05-16 08:01] LABS: Basophils Percent Auto 0.7 % (0.2-2.0); Eosinophils Absolute Auto 0.2 10^3/uL (0.0-0.7); Eosinophils Percent Auto 3.4 % (0.9-7.0); Hematocrit 43.3 % (42.0-54.0); Immature Granulocytes Abs Auto 0.01 10^3/uL (0.00-0.03); Immature Granulocytes Pct Auto 0.2 % (0.0-0.5); Lymphocytes Absolute Auto 1.3 10^3/uL (1.2-3.8); Lymphocytes Percent Auto 28.8 % (20.5-60.0); Mean Corpuscular HGB Conc 32.3 g/dL (29.9-35.2); Mean Corpuscular Hemoglobin 29.2 pg (25.9-34.0); Mean Corpuscular Volume 90.4 fL (80.0-94.0); Mean Platelet Volume 10.2 fL (9.5-13.5); Monocytes Absolute Auto 0.4 10^3/uL (0.3-0.8); Neutrophils Absolute Auto 2.6 10^3/uL (1.4-6.5); Neutrophils Percent Auto 57.9 % (43.0-75.0); Platelet Count 225 10^3/uL (150-450); Red Blood Count 4.79 10^6/uL (4.70-6.10); Red Cell Distribution Width 12.8 % (11.0-15.0); White Blood Count 4.4 10^3/uL (4.0-11.0)
[2024-05-18 08:13] LABS: Tacrolimus (FK506), Blood 2.6 ng/mL (2.0-20.0)
== END 2024-05-16 06:36 | disposition home or self-care (01) ==
LOC: LAB 06:37
PROVIDERS: PCP Nurse Practitioner
DX: R79.9 Abnormal finding of blood chemistry, unspecified (principal); Z94.0 Kidney transplant status; Z94.4 Liver transplant status; Z48.298 Encounter for aftercare following other organ transplant
CPT/HCPCS: 36415; 80048; 80197; 82042; 82247; 82248; 82570; 82977; 83735; 84075; 84100; 84156; 84450; 84460; 85025

== ENCOUNTER 2024-05-18 13:49 | Outpatient (OUT) | payer MEDICARE, MEDICAID, SELFPAY ==
--- NOTE | 2024-05-18 14:00 | CA_ITS ---
Patient Name: GEORGE MCCARTNEY MR#: [id number] : 1970 Exam Date: 05/18/2024 Ordering Doctor: DR SHYANN LUBIN M.D. ECHOCARDIOGRAM REPORT PROCEDURE: CA ECHO DOPPLER COMPLETE INDICATIONS: Pericardial effusion COMPARISON: None. DESCRIPTION: COMPLETE ECHOCARDIOGRAM Real-time transthoracic echocardiography with 2D, M-mode, spectral and color flow Doppler performed. QUALITY: Technical quality was good. 67 , 185#, BP 120/64 LEFT VENTRICLE: Normal chamber size. Thickened septal wall. Normal systolic function. LV EF: Normal left ventricular ejection fraction, (55%). DIASTOLIC: Normal diastolic function. ATRIAL SEPTUM: Visually appears intact. LEFT ATRIUM: Normal chamber size. RIGHT ATRIUM: Normal chamber size. RIGHT VENTRICLE: Mild chamber dilatation. Normal right ventricular systolic function. TRICUSPID VALVE: Normal mobility and thickness. No stenosis with trivial regurgitation. No evidence of pulmonary hypertension. RVSP 29 mmHg MITRAL VALVE: Normal mobility and thickness. No evidence of mitral valve stenosis. There is no mitral annular calcification. Trivial mitral regurgitation. AORTIC VALVE: Normal trileaflet appearance. Mildly calcified aortic valve. Normal leaflet mobility. No evidence of aortic valve stenosis. Trivial aortic regurgitation. AORTIC ROOT: Normal diameter and appearance. Ascending aorta is normal in size. PULMONIC VALVE: Normal thickness and mobility. No stenosis. Trivial regurgitation. PERICARDIUM: Small mostly posterior pericardial effusion. IVC: Collapses with inspirations. IVC is normal in size. PLEURA: CONCLUSION: 1. Left ventricle is normal in size and exhibits normal systolic function. LVEF is 55%. 2. The right ventricle is mildly dilated and exhibits normal systolic function. 3. No significant valvular dysfunction. 4. Normal right-sided pressures. 5. Small mostly posterior pericardial effusion. Adult Echocardiography Procedure Report Left Ventricle LVEDD (3.7 - 5.6 cm): 5.52 cm LVESD (2.2 - 4.0 cm): 3.96 cm LVIVS thickness (0.6 - 1.2 cm): 1.20 cm LVPW thickness (0.5 - 1.0 cm): 0.88 cm e': 0.11 m/s E - e': 7.85 LVOT Max Gradient: 3.81 mm[Hg] LVOT Area (cm2): 0.98 m/s Peak Velocity (LVOT): 0.98 m/s Mean Velocity (LVOT): 0.54 m/s LVOT Diameter 2.49 cm Left Atrium LA Volume Index (2D A2C): 38.44 ml/m2 Left Atrium Systolic Dimension: 5.27 cm Mitral Valve MV E to A Ratio: 0.92 Mitral Valve A-Wave Peak Velocity: 0.91 m/s Mitral Valve E-Wave Peak Velocity: 0.83 m/s Right Ventricle Aorta AO Root Diam: 3.80 cm Ascending Ao Diam: 2.94 cm Aortic Valve AoV Area (Peak Noman): 3.94 cm2, 3.94 cm2 AoV Area (VTI): 3.61 cm2, 3.61 cm2 Peak Velocity(Antegrade Flow): 1.21 m/s Peak Gradient(Antegrade Flow): 5.84 mm[Hg] Mean Velocity(Antegrade Flow): 0.82 m/s Mean Gradient(Antegrade Flow): 3.07 mm[Hg] Velocity Time Integral: 28.50 cm Tricuspid Valve Peak Velocity (Regurgitant Flow): 2.56 m/s Pulmonic Valve Mean Gradient: 2.60 mm[Hg], 2.57 mm[Hg] Mean Velocity: 0.75 m/s, 0.74 m/s Peak Gradient: 4.78 mm[Hg], 4.78 mm[Hg] Right Atrium Right Atrium Systolic Pressure: 48.01 ml, 48.01 ml Dictated by: Shyann Lubin M.D. on 05/20/2024 at 18:03 Approved by: Shyann Lubin M.D. on 05/20/2024 at 18:07
== END 2024-05-18 13:50 | disposition home or self-care (01) ==
LOC: CARD 13:49
PROVIDERS: PCP Nurse Practitioner; Visit Provider Internal Medicine Interventional Cardiology
DX: I31.39 Other pericardial effusion (noninflammatory) (principal)
CPT/HCPCS: 93306

== ENCOUNTER 2024-05-23 06:35 | Outpatient (OUT) | payer MEDICARE, MEDICAID, SELFPAY ==
--- OUTSIDE RECORDS SUMMARY | 2024-05-23 06:42 | XMS_ITS | CCD ---
Author Organization [facility] Care Team Providers Care Bench Molder Name Role Phone Kiana Zuly Unavailable Unavailable [...] Unavailable AICHHOLZ, ZULY Primary Care Unavailable Aichholz [facility], Zuly Primary Care Provider Miguel [facility] Shirin [facility],PharmD, Angel Unavailable Unavailab makayla Leigh [facility],PharmD, Te Unavailable Unavai lable Aicholz [facility], Zuly Primary Care Provider CRISTINA, DR BURCH Admitting Unavailable MISC, DR BURCH Consulting Unavailable AICHHOLZ, [employer] ZULY Primary Care Unavailable MISC, DR BURCH Attending Unavailable MISC, DR BRUCH Admitting Unavailable MISC, DR BURCH Consulting Unavailable AICHHOLZ, MAINTENANCE [employer]CH[employer] ZULY Primary Care Unavailable MISC, DR BURCH Attending Unavailable ARCELIA PIZARRO Consulting Unavailable KE BURNHAM Attending Unavailable KE BURNHAM Admitting Unavailable BARBARA, DR MÓNICA Munoz Consulting Unavailable AICHHOLZ, MAINTENANCE MECH[employer] ZULY Primary Care Unavailable KE BURNHAM Consulting Unavailable MISC, DR BURCH Consulting Unavailable MISC, DR BURCH Attending Unavailable AICHHOLZ, MAINTENAN[employer]CH[employer] ZULY Primary Care Unavailable MISC, DR BURCH Admitting Unavailable MISC, DR DOCTOR Consulting Unavailable MISC, DOCTOR Attending Unavailable AICHHOLZ, [employer] ZULY Primary Care Unavailable MISC, DR BURCH Admitting Unavailable MISC, DR DOCTOR Consulting Unavailable AICHHOLZ, MAINTE[employer] ZULY Primary Care Unavailable MISC, DOCTOR Admitting Unavailable MISC, DR DOCTOR Attending Unavailable MELINDA, DR GEORGE Munoz Consulting Unavailable MELINDA, DR GEORGE Munoz Attending Unavailable AICHHOLZ, MAINTENA[employer] ZULY Primary Care Unavailable MELINDA, DR GEORGE Munoz Admitting Unavailable NAUN ., KE Consulting Unavailable MIRANDA, LYNDSAY Consulting Unavailable MELINDA, DR GEORGE Munoz Consulting Unavailable NAUN ., KE Attending Unavailable NAUN ., KE Admitting Unavailable AICHHOLZ, MAINTENAN[employer] ZULY Primary Care Unavailable NAUN ., KE Consulting Unavailable GIAN HERRING Consulting Unavailable AICHHOLZ, MA[employer]TE[employer] ZULY Consulting Unavailable AICHHOLZ, MAINTENAN[employer]CH[employer] ZULY Attending Unavailable AICHHOLZ, [employer]INTE[employer] ZULY Admitting Unavailable AICHHOLZ, MAINTENA[employer] ZULY Primary Care Unavailable MISC, DR BURCH Consulting Unavailable MISC, DOCTOR Admitting Unavailable MISC, DOCTOR Attending Unavailable AICHHOLZ, MAINTENAN[employer] ZULY Primary Care Unavailable MISC, DR DOCTOR Consulting Unavailable MISC, DR DOCTOR Attending Unavailable MISC, DR DOCTOR Admitting Unavailable AICHHOLZ, MAINTENANCE [employer]CH[employer] ZULY Primary Care Unavailable MISC, DR BURCH Admitting Unavailable MISC, DOCTOR Consulting Unavailable MISC, DOCTOR Attending Unavailable AICHHOLZ, MA[employer]TE[employer] ZULY Primary Care Unavailable MISC, DOCTOR Admitting Unavailable MISC, DR DOCTOR Consulting Unavailable AICHHOLZ, MAINTENANCE [employer]CH[employer] ZULY Primary Care Unavailable MISC, DR DOCTOR Attending Unavailable MISC, DOCTOR Admitting Unavailable MISC, DR DOCTOR Consulting Unavailable AICHHOLZ, MAINTENANCE MECH[employer] ZULY Primary Care Unavailable MISC, DR DOCTOR Attending Unavailable AICHHOLZ, MAINTENANCE MECH[employer]IC [employer] ZULY Consulting Unavailable AICHHOLZ, MAINTENANCE MECHANIC [employer]AT[employer] ZULY Attending Unavailable AICHHOLZ, MAINTENANCE MECHANIC E[employer]AT[employer] ZULY Admitting Unavailable AICHHOLZ, MAINTENANCE MECH[employer] ZULY Primary Care Unavailable DR MÓNICA JIMENEZ Consulting Unavailable Aichholz [employer], Zuly Primary Care Provider Tran White DOs A Unavailable Aichholz [employer], Zuly Primary Care Provider Tran White DOs A Unavailable Momo Verdugo MD Primary Care Provider Aichholz ROB Zuly Primary Care Provider AICHHOLZ, ZULY Attending Unavailable AICHHOLZ, ZULY Attending Unavailable PALMA PALACIOS Attending Unavailable AICHHOLZ, ZULY Referring Unavailable KELBLEYFIDELINA Attending Unavailable AICHHOLZ, ZULY Referring Unavailable BRINK, JOHNNA Attending Unavailable AICHHOLZ, ZULY Referring Unavailable BRINK, JOHNNA Attending Unavailable AICHHOLZ, ZULY Referring Unavailable AICHHOLZ, ZULY Attending Unavailable BRINK, JOHNNA Attending Unavailable AICHHOLZ, ZULY Referring Unavailable BRINK, JOHNNA Attending Unavailable AICHHOLZ, ZULY Referring Unavailable KELBLEYCHUCKYFIDELINA Attending Unavailable AICHHOLZ, ZULY Referring Unavailable BRINK, [...] Primary Care Unavailable SELF, SELF Referring Unavailable REEBCA GUTIERREZ Attending Unavailable AICHHOLZ, ZULY Primary Care [...] Attending Unavailable AICHHOLZ, ZULY Primary Care Unavailable ALMAGUER, GARRIE J Attending Unavailable KELVIN PACHECO Referring Unavailable MIGUEL CARDONA Attending Unavailable Allergies Allergy Classification Reported Allergen(s) Allergy Type Date of Onset Reaction(s) Facility (2 sources) Shellfish; Translations: [SHELLFISH DERIVED] Propensity to adverse reactions (disorder) 8 [facility] Repository (20 sources) Shellfish-Derive d Products Propensity to adverse reactions to drug 9 [facility] (1 source) Shellfish Drug allergy (disorder) [facility] Repository Medications Current Medications Medication [...] 1 capsule by mouth once daily b rnlxtsd-T-hanvt acid (NEPHROCAPS) 1 MG capsule Take 1 [...] ankle pain. 0 06/12/2020 06/12/2023 Discontinued lactulose 16299 mg powder for oral solution (19 sources) [...] NEEDED, Starting on Thu09/04/23 at 0925, Until 09/11/23 at 1645, Moderate Pain, Mild Pain, Oral [...] itraconazole Fax results to: Dr. White - [phone] Transplant Neph - [phone] Each 09/10/2023 01/19/2024 Discontinued (Medication Reconciliation (suppress cancel msg)) Start: 09-10-2023 CUSTOM MEDICAT ION Labs to be obtained: 1- Tacrolimus level, trough - collect twice weekly until 09/24/23, then weekly until 10/08/23, them once every two weeks there after. 2- Itraconazole level - obtain once between 09/14-09/18. 3- Chem 6 - Obtain weekly while on itraconazole Fax results to: Dr. White - [phone] Transplant Neph - [phone] Each 0 09/10/2023 Active Diatrizoate (1 source) Start: 05-20-2022 End: 05-20-2022 diatrizoate Meglumine (Cystografin) 30 % UR solution 80 mL diphenhydrAMINE hydrochloride 25 mg oral tablet (1 source) Histamine-1 Receptor Antagonist Start: 09-03-2023 End: 09-11-2023 take 25 mg by mouth every twenty-four hours 25 mg, Oral, EVERY 24 HOURS, First dose on [facility] 09/03/23 at 1600, Until Discontinued Give 30 [...] 01/16/2023 Discontinued take 2 tablets by mo [facility] in the morning magnesium [...] 06/14/2020 06/12/2023 Discontinued take 1 tablet by [facility] every eight hours as needed ondansetron 4 [...] (ROXICODONE) tablet 10 mg polyethylene glycol 3350 85895 mg powder for oral solution (20 sources) [...] rate of 5mg/min. Maximum of 40mg/day. sennosides, care home 8.6 mg oral tablet (1 source) [...] First dose on 09/09/23 at 0900, Until Discontinued Caution check route [...] Coronary arteriosclerosis; Translations: [Atherosclerotic heart disease of zuni coronary artery without angina pectoris] Onset: 3 [...] sources) Taking high risk medication; Translations: [Other manager terminal (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] Episodic Other and ill-defined [...] transplant status; Translations: [LIVER TRANSPLANT STATUS] Onset: 3 Chronic Other lower respiratory disease [...] 05-10-2020 Episodic Other aftercare (2 sources) Other intermediate (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; Translations: [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 THERAPY] Onset: 07-06-2022 Episodic Other aftercare (1 source) [facility] (current) use of aspirin; Translations: [CORRECTION CURRENT [...] transplant] Onset: 08-28-2023 Unclassified (1 source) Other intermediate (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; Translations: [Other intermediate (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] Onset: 08-28-2023 Unclassified (1 source) Hypertension secondary to other renal disorders; Translations: [Hypertension secondary to other renal disorders] Onset: 08-28-2023 Unclassified (1 source) Other pericardial effusion (noninflammatory); Translations: [Other pericardial effusion (noninflammatory)] Onset: 05-13-2024 Results Test Name Value Interpretation Reference Range Facility Office Visiton 05-13-2024 Follow-up visit [id number] George Styles 1970 M Date Provider Department Center 05/13/2024 JúniorMIGUEL CARDONA [facility] Family History Problem Relation Age of Onset Coronary artery disease Mother Coronary artery disease Father Family Status - Relation Status Age at Mother Father Level of Service:31121 [place] OFFICE/OUTPATIENT ESTABLISHED LOW MDM 20 MIN Reason for Visit and Comments: Follow-up [407966] - Yearly follow up Normal [facility] B-TYPE NATRIURETIC PEPTIDE ( BRAIN)on 02-26-2024 Interpretation and review of laboratory results Normal [facility] Natriuretic peptide B (Bld) [Mass/Vol] 72 pg/mL 0 - 100 pg/mL [facility] Natriuretic peptide B (Bld) [Mass/Vol] 72 pg/mL Normal 0-100 [facility] Comment on above: Performed By: #### B ELECTRICAL INSPECTOR ####[facility] (DEFAULT)[address] [place] [id number] CHEM 6 (LYTES, BUN CREA)on 0 02-26-2024 Anion gap [Moles/Vol] 13 mmol/L 7 - 17 mmol/L [facility] Chloride [Moles/Vol] 107 mmol/L 98 - 10 8 mmol/L [facility] CO2 [Moles/Vol] 25 mmol/L 21 - 31 mmol/L [facility] Creatinine [Mass/Vol] 1.23 mg/dL 0.70 - 1.30 mg/dL [facility] eGFR, CKD-EPI, Male 70 - PINF [facility] Comment on above: Reported eGFR is bas ed on the CKD-EPI 2020 equation using creatinine, age, and sex. Potassium [Moles/Vol] 4.2 mmol/L 3.5 - 5.0 mmol/L [facility] Sodium [Moles/Vol] 141 mmol/L 135 - 145 mmol/L [facility] Urea nitrogen [Mass/Vol] 17 mg/dL 7 - 25 mg/dL [facility] Urea nitrogen/Creatinine [Mass ratio] 14 mg/mg [facility] Anion gap [Moles/Vol] 13 mmol/L Normal 7-17 [facility] Comment on above: Performed By: #### C HM6 ####[facility] (DEFAULT)[address] [place] [address] Chloride [Moles/Vol] 107 mmol/L Normal 98-108 [facility] Comment on above: Performed By: #### C HM6 ####[facility] (DEFAULT)[address] [facility] [place] [address] CO2 [Moles/Vol] 25 mmol/L Normal 21-31 [facility] Comment on above: Performed By: #### C HM6 ####[facility] (DEFAULT)[address] [place] [address], [place] [address] Creatinine [Mass/Vol] 1.23 mg/dL Normal 0.70-1.30 [facility] Comment on above: Performed By: #### C HM6 ####[facility] (DEFAULT)[address] [place] [address], [place] [address] GFR/1.73 sq M.predicted among non-blacks MDRD (S/P/Bld) [Vol rate/Area] 70 mL/min/{1.73_m2} Normal >=60 [facility] Comment on above: Result Comment: Repo rted eGFR is based on the CKD-EPI 2020 equation using creatinine, age, and sex. Performed By: #### C HM6 ####[facility] (DEFAULT)[address] [place] [address], [place] [address] Potassium [Moles/Vol] 4.2 mmol/L Normal 3.5-5.0 [facility] Comment on above: Performed By: #### C HM6 ####[facility] (DEFAULT)[address] [place] [address], [place] [address] Sodium [Moles/Vol] 141 mmol/L Normal 135-145 [facility] Comment on above: Performed By: #### C HM6 ####[facility] (DEFAULT)[address] [place] [address], [place] [address] Urea nitrogen [Mass/Vol] 17 mg/dL Normal 7-25 [facility] Comment on above: Performed By: #### C HM6 ####[facility] (DEFAULT)[address] [place] [address] Urea nitrogen/Creatinine [Mass ratio] 14 mg/mg Normal [facility] Comment on above: Performed By: #### C HM6 ####[facility] (DEFAULT)[address] [place] [address] CBC,PLATELETSon 01-23-2024 Erythrocyte distribution width (RBC) [Ratio] 14.2 % 10.9 - 14.3 % [facility] Hematocrit (Bld) [Volume fraction] 37.0 % [facility] MCV (RBC) [Entitic vol] 88.1 fL 79.0 - 94.5 fL [facility] Platelet mean volume (Bld) [Entitic vol] 10.4 fL 8.7 - 12.3 fL [facility] Platelets (Bld) [#/Vol] 170 10*3/uL 146 - 337 K/uL [facility] RBC (Bld) [#/Vol] 4.20 10*6/uL Low [facility] WBC (Bld) [#/Vol] 3.70 10*3/uL Low 3.73 - 10. 10 K/uL [facility] Hematocrit (Bld) [Volume fraction] 37.0 % Low 39.6-48.8 [facility] Comment on above: Performed By: #### H EMO ####[facility] (DEFAULT)[address] [place] [address] Hemoglobin (Bld) [Mass/Vol] 12.0 g/dL Low 13.4-16.8 [facility] Comment on above: Performed By: #### H EMOGC ####[facility] (DEFAULT)[address] [facility] [place] [address] MCV (RBC) [Entitic vol] 88.1 fL Normal 79.0-94.5 [facility] Comment on above: Performed By: #### H EMOGC ####[facility] (DEFAULT)[address] [facility] [place] [address] Mean Cell Hgb 28.6 pg Normal 26.1-33.3 [facility] Comment on above: Performed By: #### H EMOGC ####[facility] (DEFAULT)[address] [facility] [place] [address] Mean Cell Hgb Conc 32.4 g/dL Normal 31.9-36.5 [facility] Comment on above: Performed By: #### H EMOGC ####[facility] (DEFAULT)[address] [facility] [place] [address] Platelet mean volume (Bld) [Entitic vol] 10.4 fL Normal 8.7-12.3 [facility] Comment on above: Performed By: #### H EMOGC ####[facility] (DEFAULT)[address] [facility] [place] [address] Platelets (Bld) [#/Vol] 170 10*3/uL Normal 146-337 [facility] Comment on above: Performed By: #### H EMOGC ####[facility] (DEFAULT)[address] [facility] [place] [address] RBC (Bld) [#/Vol] 4.20 10*6/uL Low 4.38-5.83 [facility] Comment on above: Performed By: #### H EMOGC ####[facility] (DEFAULT)[address] [facility] [place] [address] RBC Distribution 14.2 % Normal 10.9-14.3 [facility] Comment on above: Performed By: #### H [facility] [place] ####[facility] (DEFAULT)[address] [place] [address] WBC (Bld) [#/Vol] 3.70 10*3/uL Low 3.73-10.10 [facility] Comment on above: Performed By: #### H [facility] [place] ####[facility] (DEFAULT)[address] [place] [address] CHEM 7 (LYTES,BUN,CREA,GLUC) on 01-23-2024 Anion gap [Moles/Vol] 14 mmol/L 7 - 17 mmol/L [facility] Chloride [Moles/Vol] 105 mmol/L 98 - 10 8 mmol/L [facility] CO2 [Moles/Vol] 25 mmol/L 21 - 31 mmol/L [facility] Creatinine [Mass/Vol] 1.32 mg/dL High 0.70 - 1.30 mg/dL [facility] eGFR, CKD-EPI, Male 65 - PINF [facility] Comment on above: Reported eGFR is bas ed on the CKD-EPI 2020 equation using creatinine, age, and sex. Glucose [Mass/Vol] 94 mg/dL 70 - 99 mg/dL [facility] Osmolality Calc [Osmolality] 296 [facility] Potassium [Moles/Vol] 3.8 mmol/L 3.5 - 5.0 mmol/L [facility] Sodium [Moles/Vol] 140 mmol/L 135 - 145 mmol/L [facility] Urea nitrogen [Mass/Vol] 23 mg/dL 7 - 25 mg/dL [facility] Urea nitrogen/Creatinine [Mass ratio] 17 mg/mg [facility] Anion gap [Moles/Vol] 14 mmol/L Normal 7-17 [facility] Comment on above: Performed By: #### M GO, CHM7, HFP ####[facility] (DEFAULT)[address] [place] [address] Chloride [Moles/Vol] 105 mmol/L Normal 98-108 [facility] Comment on above: Performed By: #### NATHANIEL RAMÍREZ, HFP ####[facility] (DEFAULT)[address] [facility] [place] [address] CO2 [Moles/Vol] 25 mmol/L Normal 21-31 [facility] Comment on above: Performed By: #### NATHANIEL RAMÍREZ, HFP ####[facility] (DEFAULT)[address] [facility] [place] [address] Creatinine [Mass/Vol] 1.32 mg/dL High 0.70-1.30 [facility] Comment on above: Performed By: #### NATHANIEL RAMÍREZ, HFP ####[facility] (DEFAULT)[address] [facility] [place] [address] GFR/1.73 sq M.predicted among non-blacks MDRD (S/P/Bld) [Vol rate/Area] 65 mL/min/{1.73_m2} Normal >=60 [facility] Comment on above: Result Comment: Repo rted eGFR is based on the CKD-EPI 2020 equation using creatinine, age, and sex. Performed By: #### NATHANIEL RAMÍREZ, HFP ####[facility] (DEFAULT)[address] [facility] [place] [address] Glucose [Mass/Vol] 94 mg/dL Normal 70-99 [facility] Comment on above: Performed By: #### NATHANIEL RAMÍREZ, HFP ####[facility] (DEFAULT)[address] [place] [address] Osmolality [Osmolality] 296 mosm/kg Normal 278-305 [facility] Comment on above: Performed By: #### NATHANIEL RAMÍREZ, HFP ####[facility] (DEFAULT)[address] [facility] [place] [address] Potassium [Moles/Vol] 3.8 mmol/L Normal 3.5-5.0 [facility] Comment on above: Performed By: #### M HELEN BLOOMM7, HFP ####[facility] (DEFAULT)[address] [place] [address] Sodium [Moles/Vol] 140 mmol/L Normal 135-145 [facility] Comment on above: Performed By: #### Rod BLOOM CHM7, HFP ####[facility] (DEFAULT)[address] [facility] [place] [address] Urea nitrogen [Mass/Vol] 23 mg/dL Normal 7-25 [facility] Comment on above: Performed By: #### Rod BLOOM CHM7, HFP ####[facility] (DEFAULT)[address] [facility] [place] [address] Urea nitrogen/Creatinine [Mass ratio] 17 mg/mg Normal [facility] Comment on above: Performed By: #### TJ RAMÍREZ7, HFP ####[facility] (DEFAULT)[address] [facility] [place] [address] GLUCOSE POCon 01-23-2024 Glucose [Mass/Vol] 88 mg/dL 70 - 99 mg/dL [facility] Test performed at ad dress of the patient encounter. [facility] Glucose [Mass/Vol] 191 mg/dL High 70 - 99 mg/dL [facility] Interpretation and review of laboratory results Abnormal [facility] Test performed at ad dress of the patient encounter. [facility] HEPATIC FUNCTION PANELon Albumin [Mass/Vol] 3.9 g/dL 3.5 - 5.0 g/dL [facility] ALP [Catalytic activity/Vol] 83 U/L 32 - 126 U/L [facility] ALT [Catalytic activity/Vol] 9 U/L Low 10 - 52 U/L [facility] AST [Catalytic activity/Vol] 17 U/L 10 - 39 U/L [facility] Bilirubin [Mass/Vol] 1.6 mg/dL High NINF - 1.5 mg/dL [facility] Bilirubin.direct [Mass/Vol] 0.4 mg/dL High NINF - 0.3 mg/dL [facility] Protein [Mass/Vol] 6.6 g/dL 6.4 - 8.3 g/dL [facility] Albumin [Mass/Vol] 3.9 g/dL Normal 3.5-5.0 [facility] Comment on above: Performed By: #### M MERLE CHM7, HFP ####[facility] (DEFAULT)[address] [place] [address] ALP [Catalytic activity/Vol] 83 U/L Normal 32-126 [facility] Comment on above: Performed By: #### M MERLE CHM7, HFP ####[facility] (DEFAULT)[address] [facility] [place] [address] ALT [Catalytic activity/Vol] 9 U/L Low 10-52 [facility] Comment on above: Performed By: #### M MERLE CHM7, HFP ####[facility] (DEFAULT)[address] [place] [address] AST [Catalytic activity/Vol] 17 U/L Normal 10-39 [facility] Comment on above: Performed By: #### M MERLE CHM7, HFP ####[facility] (DEFAULT)[address] [place] [address] Bilirubin [Mass/Vol] 1.6 mg/dL High <1.5 [facility] Comment on above: Performed By: #### M MERLE CHM7, HFP ####[facility] (DEFAULT)[address] [place] [address] Bilirubin.indirect [Mass/Vol] 0.4 mg/dL High <0.3 [facility] Comment on above: Performed By: #### M MERLE CHM7, HFP ####[facility] (DEFAULT)[address] [place] [address] Protein [Mass/Vol] 6.6 g/dL Normal 6.4-8.3 [facility] Comment on above: Performed By: #### Rod BLOOM, CHM7, [facility] ####[facility] (DEFAULT)[address] [place] [address] ITRACONAZOLE LEVELon 024 Hydroxyitraconazole [Mass/Vol] 7.6 mcg/mL [facility] Comment on above: REFERENCE VALUE No therapeutic range established; activity and serum concentration are similar to parent drug. ADDITIONAL INFORMATION This test was developed and its performance characteristics determined by [facility] in a manner consistent with CLIA requirements. This test has not been cleared or approved by the U.S. Food and Drug Administration. Test Performed by: [facility] - [address] [address] Sole Cutter: Rosendo Bose M.D. Ph.D.; CLIA# [id number] Itraconazole [Mass/Vol] 6.0 mcg/mL [facility] Comment on above: REFERENCE VALUE >0.5 (localized infection), >1.0 (systemic infection) [facility] MAGNESIUMon 01-23-2024 Interpretation and review of laboratory results Normal [facility] Magnesium [Mass/Vol] 1.8 mg/dL 1.6 - 2 .6 mg/dL [facility] Magnesium [Mass/Vol] 1.8 mg/dL Normal 1.6-2.6 [facility] Comment on above: Performed By: #### M GO, CHM7, HFP ####[facility] (DEFAULT)[address] [place] [id number] No Panel Informationon 01-23 Interpretation and review of laboratory results Abnormal [facility] TACROLIMUS LEVEL, TROUGH (UT E DRUG LEVEL)on 01-23-2024 Interpretation and review of laboratory results Normal [facility] Tacrolimus (Bld) [Mass/Vol] 7.0 ng/mL Bone Marrow Transplant: 4.0-12.0, Therapeutic: 5.0-15.0 [facility] Method performed is a chemiluminescent microparticle immunoasssay on the [employer] i2000. The range is based on experience at [facility] and users should be aware that target concentrations vary widely depending on concomitant therapy, time post-transplant, and desired degree of immunosuppression. [facility] Tacrolimus, Trough 7.0 ng/mL Normal Bone Susana ow Transplant: 4.0-12.0, Therapeutic: 5.0-15.0 [facility] Comment on above: Order Comment: Pleas e draw at specified interval PRIOR to dose. Do not hold dose to wait for level. Specimens batched twice per day, (M-F) and once per day weekendsMethod performed is a chemiluminescent microparticle immunoasssay on the [employer] i2000.The range is based on experience at [facility] and users should be aware that target concentrations vary widely depending on concomitant therapy, time post-transplant, and desired degree of immunosuppression. Performed By: #### T ACRO ####[facility] (DEFAULT)[address] [place] [address] CARDIAC RHYTHM (SCANNED)on 0 01-22-2024 [facility] CBC,PLATELETSon 01-22-2024 Erythrocyte distribution width (RBC) [Ratio] 14.1 % 10.9 - 14.3 % [facility] Hematocrit (Bld) [Volume fraction] 41.5 % [facility] MCV (RBC) [Entitic vol] 86.8 fL 79.0 - 94.5 fL [facility] Platelet mean volume (Bld) [Entitic vol] 10.5 fL 8.7 - 12.3 fL [facility] Platelets (Bld) [#/Vol] 186 10*3/uL 146 - 337 K/uL [facility] RBC (Bld) [#/Vol] 4.78 10*6/uL [facility] WBC (Bld) [#/Vol] 3.74 10*3/uL 3.73 - 10. 10 K/uL [facility] Hematocrit (Bld) [Volume fraction] 41.5 % Normal 39.6-48.8 [facility] Comment on above: Performed By: #### [facility] [place] ####[facility] (DEFAULT)[address] [place] [address] Hemoglobin (Bld) [Mass/Vol] 13.3 g/dL Low 13.4-16.8 [facility] Comment on above: Performed By: #### H EMO ####[facility] (DEFAULT)[address] [place] [address] MCV (RBC) [Entitic vol] 86.8 fL Normal 79.0-94.5 [facility] Comment on above: Performed By: #### H EMO ####[facility] (DEFAULT)[address] [place] [address] Mean Cell Hgb 27.8 pg Normal 26.1-33.3 [facility] Comment on above: Performed By: #### H EMO ####[facility] (DEFAULT)[address] [facility] [place] [address] Mean Cell Hgb Conc 32.0 g/dL Normal 31.9-36.5 [facility] Comment on above: Performed By: #### H EMOGC ####[facility] (DEFAULT)[address] [facility] [place] [address] Platelet mean volume (Bld) [Entitic vol] 10.5 fL Normal 8.7-12.3 [facility] Comment on above: Performed By: #### H EMO ####[facility] (DEFAULT)[address] [place] [address] Platelets (Bld) [#/Vol] 186 10*3/uL Normal 146-337 [facility] Comment on above: Performed By: #### H EMO ####[facility] (DEFAULT)[address] [place] [address] RBC (Bld) [#/Vol] 4.78 10*6/uL Normal 4.38-5.83 [facility] Comment on above: Performed By: #### H EMO ####[facility] (DEFAULT)[address] [place] [address] RBC Distribution 14.1 % Normal 10.9-14.3 [facility] Comment on above: Performed By: #### H EMOGC ####[facility] (DEFAULT)[address] [place] [address] WBC (Bld) [#/Vol] 3.74 10*3/uL Normal 3.73-10.10 [facility] Comment on above: Performed By: #### H EMOGC ####[facility] (DEFAULT)[address] [place] [address] CHEM 7 (LYTES,BUN,CREA,GLUC) on 01-22-2024 Anion gap [Moles/Vol] 13 mmol/L 7 - 17 mmol/L [facility] Chloride [Moles/Vol] 109 mmol/L High 98 - 10 8 mmol/L [facility] CO2 [Moles/Vol] 23 mmol/L 21 - 31 mmol/L [facility] Creatinine [Mass/Vol] 1.10 mg/dL 0.70 - 1.30 mg/dL [facility] eGFR, CKD-EPI, Male 81 - PINF [facility] Comment on above: Reported eGFR is bas ed on the CKD-EPI 2020 equation using creatinine, age, and sex. Glucose [Mass/Vol] 84 mg/dL 70 - 99 mg/dL [facility] Interpretation and review of laboratory results Abnormal [facility] Osmolality Calc [Osmolality] 295 [facility] Potassium [Moles/Vol] 4.0 mmol/L 3.5 - 5.0 mmol/L [facility] Sodium [Moles/Vol] 141 mmol/L 135 - 145 mmol/L [facility] Urea nitrogen [Mass/Vol] 16 mg/dL 7 - 25 mg/dL [facility] Urea nitrogen/Creatinine [Mass ratio] 15 mg/mg [facility] Anion gap [Moles/Vol] 13 mmol/L Normal 7-17 [facility] Comment on above: Performed By: #### NATHANIEL RAMÍREZ ####[facility] (DEFAULT)[address] [place] [address] Chloride [Moles/Vol] 109 mmol/L High 98-108 [facility] Comment on above: Performed By: #### NATHANIEL RAMÍREZ ####[facility] (DEFAULT)[address] [place] [address] CO2 [Moles/Vol] 23 mmol/L Normal 21-31 [facility] Comment on above: Performed By: #### NATHANIEL RAMÍREZ ####[facility] (DEFAULT)[address] [place] [address] Creatinine [Mass/Vol] 1.10 mg/dL Normal 0.70-1.30 [facility] Comment on above: Performed By: #### M GO, CHM7 ####[facility] (DEFAULT)[address] [place] [address] GFR/1.73 sq M.predicted among non-blacks MDRD (S/P/Bld) [Vol rate/Area] 81 mL/min/{1.73_m2} Normal >=60 [facility] Comment on above: Result Comment: Repo rted eGFR is based on the CKD-EPI 2020 equation using creatinine, age, and sex. Performed By: #### Rod BLOOM CHM7 ####[facility] (DEFAULT)[address] [place] [address] Glucose [Mass/Vol] 84 mg/dL Normal 70-99 [facility] Comment on above: Performed By: #### Rod BLOOM CHM7 ####[facility] (DEFAULT)[address] [place] [address] Osmolality [Osmolality] 295 mosm/kg Normal 278-305 [facility] Comment on above: Performed By: #### Rod BLOOM CHM7 ####[facility] (DEFAULT)[address] [place] [address] Potassium [Moles/Vol] 4.0 mmol/L Normal 3.5-5.0 [facility] Comment on above: Performed By: #### Rod BLOOM CHM7 ####[facility] (DEFAULT)[address] [place] [address] Sodium [Moles/Vol] 141 mmol/L Normal 135-145 [facility] Comment on above: Performed By: #### Rod BLOOM CHM7 ####[facility] (DEFAULT)[address] [place] [address] Urea nitrogen [Mass/Vol] 16 mg/dL Normal 7-25 [facility] Comment on above: Performed By: #### Rod BLOOM CHM7 ####[facility] (DEFAULT)[address] [place] [address] Urea nitrogen/Creatinine [Mass ratio] 15 mg/mg Normal [facility] Comment on above: Performed By: #### Rod BLOOM CHM7 ####[facility] (DEFAULT)[address] [place] [address] MAGNESIUMon 01-22-2024 Interpretation and review of laboratory results Normal [facility] Magnesium [Mass/Vol] 2.0 mg/dL 1.6 - 2 .6 mg/dL [facility] Magnesium [Mass/Vol] 2.0 mg/dL Normal 1.6-2.6 [facility] Comment on above: Performed By: #### TJ RAMÍREZ7 ####[facility] (DEFAULT)[address] [place] [address] No Panel Informationon 01-22 [facility] PT,INR,PTTon 01-22-2024 aPTT Coag (PPP) [Time] 29.2 s [facility] INR Coag (Bld) [Relative time] 1.1 {INR} 0.9 - 1.1 [facility] Interpretation and review of laboratory results Abnormal [facility] PT Coag (PPP) [Time] 14.3 s High [facility] aPTT Coag (Bld) [Time] 29.2 s Normal 24.0-34.3 [facility] Comment on above: Performed By: #### P TPTT ####[facility] (DEFAULT)[address] [place] [address] INR Coag (PPP) [Relative time] 1.1 {INR} Normal 0.9-1.1 [facility] Comment on above: Performed By: #### P TPTT ####[facility] (DEFAULT)[address] [place] [address] PT Coag (PPP) [Time] 14.3 s High 11.9-14.2 [facility] Comment on above: Performed By: #### P TPTT ####[facility] (DEFAULT)[address] [place] [address] TACROLIMUS LEVEL, TROUGH (UT E DRUG LEVEL)Ordered By: Sheree Jensen on 01-22-2024 Interpretation and review of laboratory results Normal [facility] Tacrolimus (Bld) [Mass/Vol] 7.9 ng/mL Bone Marrow Transplant: 4.0-12.0, Therapeutic: 5.0-15.0 [facility] Method performed is a chemiluminescent microparticle immunoasssay on the [employer] i2000. The range is based on experience at [facility] and users should be aware that target concentrations vary widely depending on concomitant therapy, time post-transplant, and desired degree of immunosuppression. [facility] TACROLIMUS LEVEL, TROUGH (UT E DRUG LEVEL)on 01-22-2024 Tacrolimus, Trough 7.9 ng/mL Normal Bone Susana ow Transplant: 4.0-12.0, Therapeutic: 5.0-15.0 [facility] Comment on above: Order Comment: Pleas e draw at specified interval PRIOR to dose. Do not hold dose to wait for level. Specimens batched twice per day, (M-F) and once per day weekendsMethod performed is a chemiluminescent microparticle immunoasssay on the [employer] i2000.The range is based on experience at [facility] and users should be aware that target concentrations vary widely depending on concomitant therapy, time post-transplant, and desired degree of immunosuppression. Performed By: #### T ACRO ####[facility] (DEFAULT)[address] [place] [address] TYPE AND SCREENon 01-22-2024 ABO/RH(D) TYPE Positive [facility] ABO/RH(D) TYPE Positive Normal [facility] Comment on above: Performed By: #### X M ####[facility] (DEFAULT)[address] [place] [address] [place] Unspecified body regionOr dered By: Unassigned Pacs on 01-22-2024 [facility] Work Phone: [place] Unspecified body regionon 01-22-2024 Radiology Study observation (narrative) [facility] CBC,PLATELETSon 01-21-2024 Erythrocyte distribution width (RBC) [Ratio] 14.0 % 10.9 - 14.3 % [facility] Hematocrit (Bld) [Volume fraction] 39.4 % Low 39.6 - 48.8 % [facility] Hemoglobin (Bld) [Mass/Vol] 12.7 g/dL Low 13.4 - 16.8 g/dL [facility] Interpretation and review of laboratory results Abnormal [facility] MCH (RBC) [Entitic mass] 28.0 pg 26.1 - 33.3 pg [facility] MCHC (RBC) [Mass/Vol] 32.2 g/dL 31.9 - 36.5 g/dL [facility] MCV (RBC) [Entitic vol] 87.0 fL 79.0 - 94.5 fL [facility] Platelet mean volume (Bld) [Entitic vol] 10.2 fL 8.7 - 12.3 fL [facility] Platelets (Bld) [#/Vol] 157 10*3/uL 146 - 337 K/uL [facility] RBC (Bld) [#/Vol] 4.53 10*6/uL [facility] WBC (Bld) [#/Vol] 3.42 10*3/uL Low 3.73 - 10. 10 K/uL [facility] Hematocrit (Bld) [Volume fraction] 39.4 % Low 39.6-48.8 [facility] Comment on above: Performed By: #### [facility] [place] ####[facility] (DEFAULT)[address] [place] [address] Hemoglobin (Bld) [Mass/Vol] 12.7 g/dL Low 13.4-16.8 [facility] Comment on above: Performed By: #### [facility] [place] ####[facility] (DEFAULT)[address] [place] [address] MCV (RBC) [Entitic vol] 87.0 fL Normal 79.0-94.5 [facility] Comment on above: Performed By: #### H EMOGC ####[facility] (DEFAULT)[address] [place] [address] Mean Cell Hgb 28.0 pg Normal 26.1-33.3 [facility] Comment on above: Performed By: #### H EMOGC ####[facility] (DEFAULT)[address] [facility] [place] [address] Mean Cell Hgb Conc 32.2 g/dL Normal 31.9-36.5 [facility] Comment on above: Performed By: #### H EMOGC ####[facility] (DEFAULT)[address] [facility] [place] [address] Platelet mean volume (Bld) [Entitic vol] 10.2 fL Normal 8.7-12.3 [facility] Comment on above: Performed By: #### H EMOGC ####[facility] (DEFAULT)[address] [facility] [place] [address] Platelets (Bld) [#/Vol] 157 10*3/uL Normal 146-337 [facility] Comment on above: Performed By: #### H EMOGC ####[facility] (DEFAULT)[address] [facility] [place] [address] RBC (Bld) [#/Vol] 4.53 10*6/uL Normal 4.38-5.83 [facility] Comment on above: Performed By: #### H EMOGC ####[facility] (DEFAULT)[address] [facility] [place] [address] RBC Distribution 14.0 % Normal 10.9-14.3 [facility] Comment on above: Performed By: #### H EMOGC ####[facility] (DEFAULT)[address] [facility] [place] [address] WBC (Bld) [#/Vol] 3.42 10*3/uL Low 3.73-10.10 [facility] Comment on above: Performed By: #### [facility] [place] ####[facility] (DEFAULT)[address] [place] [address] CHEM 7 (LYTES,BUN,CREA,GLUC) on 01-21-2024 Anion gap [Moles/Vol] 12 mmol/L 7 - 17 mmol/L [facility] Chloride [Moles/Vol] 107 mmol/L 98 - 10 8 mmol/L [facility] CO2 [Moles/Vol] 26 mmol/L 21 - 31 mmol/L [facility] Creatinine [Mass/Vol] 1.11 mg/dL 0.70 - 1.30 mg/dL [facility] eGFR, CKD-EPI, Male 80 - PINF [facility] Comment on above: Reported eGFR is [...] ratio] 14 mg/mg [facility] Anion gap [Moles/Vol] 12 mmol/L Normal 7-17 [facility] Comment on above: Performed By: #### Rod BLOOM CHM7 ####[facility] (DEFAULT)[address] [place] [address] Chloride [Moles/Vol] 107 mmol/L Normal 98-108 [facility] Comment on above: Performed By: #### Rod BLOOM CHM7 ####[facility] (DEFAULT)[address] [place] [address] CO2 [Moles/Vol] 26 mmol/L Normal 21-31 [facility] Comment on above: Performed By: #### NATHANIEL RAMÍREZ ####[facility] (DEFAULT)[address] [facility] [place] [address] Creatinine [Mass/Vol] 1.11 mg/dL Normal 0.70-1.30 [facility] Comment on above: Performed By: #### TJ RAMÍREZ7 ####[facility] (DEFAULT)[address] [place] [address], [place] [address] GFR/1.73 sq M.predicted among non-blacks MDRD (S/P/Bld) [Vol rate/Area] 80 mL/min/{1.73_m2} Normal >=60 [facility] Comment on above: Result Comment: Repo rted eGFR is based on the CKD-EPI 2020 equation using creatinine, age, and sex. Performed By: #### NATHANIEL RAMÍREZ ####[facility] (DEFAULT)[address] [place] [address] Glucose [Mass/Vol] 93 mg/dL Normal 70-99 [facility] Comment on above: Performed By: #### NATHANIEL RAMÍREZ ####[facility] (DEFAULT)[address] [place] [address] Osmolality [Osmolality] 295 mosm/kg Normal 278-305 [facility] Comment on above: Performed By: #### NATHANIEL RAMÍREZ ####[facility] (DEFAULT)[address] [place] [address] Potassium [Moles/Vol] 3.9 mmol/L Normal 3.5-5.0 [facility] Comment on above: Performed By: #### NATHANIEL RAMÍREZ ####[facility] (DEFAULT)[address] [facility] [place] [address] Sodium [Moles/Vol] 141 mmol/L Normal 135-145 [facility] Comment on above: Performed By: #### NATHANIEL RAMÍREZ ####[facility] (DEFAULT)[address] [place] [address] Urea nitrogen [Mass/Vol] 15 mg/dL Normal - [facility] Comment on above: Performed By: #### M MERLE CHM7 ####[facility] (DEFAULT)[address] [place] [address] Urea nitrogen/Creatinine [Mass ratio] 14 mg/mg Normal [facility] Comment on above: Performed By: #### M MERLE CHM7 ####[facility] (DEFAULT)[address] [place] [address] Cardiac catheterization stud yOrdered By: Kelvin Donohue on 01-21-2024 Body surface area Derived from formula 2.08 m2 [facility] Work Phone: [facility] Work Phone: Cardiac catheterization stud yon [...] with fistula occlusion Kelvin Donohue MD, MPH [employer] Internal Medicine. Section of Advanced Heart Failure and Transplantation Division of Cardiovascular Diseases [facility] [email or web address] INVASIVE CARDIOVASCULAR PROC EDUREon 01-21-2024 INVASIVE CARDIOVASCULAR PROCEDURE Normal [facility] MAGNESIUMon 01-21-2024 Interpretation and review of laboratory results Abnormal [facility] Magnesium [Mass/Vol] 1.5 mg/dL Low 1.6 - 2 .6 mg/dL [facility] Magnesium [Mass/Vol] 1.5 mg/dL Low 1.6-2.6 [facility] Comment on above: Performed By: #### M GO, [facility] ####[facility] (DEFAULT)[address] [place] [address] No Panel Informationon 01-21 [facility] TACROLIMUS LEVEL, TROUGH (UT E DRUG LEVEL)on 01-21-2024 Interpretation and review of laboratory results Normal [facility] Tacrolimus (Bld) [Mass/Vol] 7.2 ng/mL Bone Marrow Transplant: 4.0-12.0, Therapeutic: 5.0-15.0 [facility] Method performed is a chemiluminescent microparticle immunoasssay on the [employer]2000. The range is based on experience at [facility] and users should be aware that target concentrations vary widely depending on concomitant therapy, time post-transplant, and desired degree of immunosuppression. [facility] Tacrolimus, Trough 7.2 ng/mL Normal Bone Susana ow Transplant: 4.0-12.0, Therapeutic: 5.0-15.0 [facility] Comment on above: Order Comment: Pleas e draw at specified interval PRIOR to dose. Do not hold dose to wait for level. Specimens batched twice per day, (M-F) and once per day weekendsMethod performed is a chemiluminescent microparticle immunoasssay on the [employer] i2000.The range is based on experience at [facility] and users should be aware that target concentrations vary widely depending on concomitant therapy, time post-transplant, and desired degree of immunosuppression. Performed By: #### T ACRO ####[facility] (DEFAULT)[address] [place] [address] CBC,PLATELETSon 01-20-2024 Erythrocyte distribution width (RBC) [Ratio] 13.8 % 10.9 - 14.3 % [facility] Hematocrit (Bld) [Volume fraction] 38.9 % Low 39.6 - 48.8 % [facility] Hemoglobin (Bld) [Mass/Vol] 12.5 g/dL Low 13.4 - 16.8 g/dL [facility] Interpretation and review of laboratory results Abnormal [facility] MCH (RBC) [Entitic mass] 28.0 pg 26.1 - 33.3 pg [facility] MCHC (RBC) [Mass/Vol] 32.1 g/dL 31.9 - 36.5 g/dL [facility] MCV (RBC) [Entitic vol] 87.2 fL 79.0 - 94.5 fL [facility] Platelet mean volume (Bld) [Entitic vol] 10.2 fL 8.7 - 12.3 fL [facility] Platelets (Bld) [#/Vol] 166 10*3/uL 146 - 337 K/uL [facility] RBC (Bld) [#/Vol] 4.46 10*6/uL [facility] WBC (Bld) [#/Vol] 3.79 10*3/uL 3.73 - 10. 10 K/uL [facility] Hematocrit (Bld) [Volume fraction] 38.9 % Low 39.6-48.8 [facility] Comment on above: Performed By: #### [facility] [place] ####[facility] (DEFAULT)[address] [place] [address] Hemoglobin (Bld) [Mass/Vol] 12.5 g/dL Low 13.4-16.8 [facility] Comment on above: Performed By: #### [facility] [place] ####[facility] (DEFAULT)[address] [place] [address] MCV (RBC) [Entitic vol] 87.2 fL Normal 79.0-94.5 [facility] Comment on above: Performed By: #### H EMOGC ####[facility] (DEFAULT)[address] [facility] [place] [address] Mean Cell Hgb 28.0 pg Normal 26.1-33.3 [facility] Comment on above: Performed By: #### H EMOGC ####[facility] (DEFAULT)[address] [facility] [place] [address] Mean Cell Hgb Conc 32.1 g/dL Normal 31.9-36.5 [facility] Comment on above: Performed By: #### H EMOGC ####[facility] (DEFAULT)[address] [facility] [place] [address] Platelet mean volume (Bld) [Entitic vol] 10.2 fL Normal 8.7-12.3 [facility] Comment on above: Performed By: #### H EMOGC ####[facility] (DEFAULT)[address] [facility] [place] [address] Platelets (Bld) [#/Vol] 166 10*3/uL Normal 146-337 [facility] Comment on above: Performed By: #### H EMOGC ####[facility] (DEFAULT)[address] [facility] [place] [address] RBC (Bld) [#/Vol] 4.46 10*6/uL Normal 4.38-5.83 [facility] Comment on above: Performed By: #### H EMOGC ####[facility] (DEFAULT)[address] [facility] [place] [address] RBC Distribution 13.8 % Normal 10.9-14.3 [facility] Comment on above: Performed By: #### H EMOGC ####[facility] (DEFAULT)[address] [facility] [place] [address] WBC (Bld) [#/Vol] 3.79 10*3/uL Normal 3.73-10.10 [facility] Comment on above: Performed By: #### H EMOGC ####[facility] (DEFAULT)[address] [place] [address] CHEM 7 (LYTES,BUN,CREA,GLUC) on 01-20-2024 Anion gap [Moles/Vol] 12 mmol/L 7 - 17 mmol/L [facility] Chloride [Moles/Vol] 105 mmol/L 98 - 10 8 [facility] [Moles/Vol] 28 mmol/L 21 - 31 mmol/L [facility] Creatinine [Mass/Vol] 1.12 mg/dL 0.70 - 1.30 mg/dL [facility] eGFR, CKD-EPI, Male 80 - PINF [facility] Comment on above: Reported eGFR is bas ed on the CKD-EPI 2020 equation using creatinine, age, and sex. Glucose [Mass/Vol] 88 mg/dL 70 - 99 mg/dL [facility] Osmolality Calc [Osmolality] 294 [facility] Potassium [Moles/Vol] 3.8 mmol/L 3.5 - 5.0 mmol/L [facility] Sodium [Moles/Vol] 141 mmol/L 135 - 145 mmol/L [facility] Urea nitrogen [Mass/Vol] 15 mg/dL 7 - 25 mg/dL [facility] Urea nitrogen/Creatinine [Mass ratio] 13 mg/mg [facility] Anion gap [Moles/Vol] 12 mmol/L Normal 7-17 [facility] Comment on above: Performed By: #### NATHANIEL RAMÍREZ, HFP ####[facility] (DEFAULT)[address] [place] [address] Chloride [Moles/Vol] 105 mmol/L Normal 98-108 [facility] Comment on above: Performed By: #### NATHANIEL RAMÍREZ, HFP ####[facility] (DEFAULT)[address] [place] [address] CO2 [Moles/Vol] 28 mmol/L Normal 21-31 [facility] Comment on above: Performed By: #### NATHANIEL RAMÍREZ, HFP ####[facility] (DEFAULT)[address] [place] [address] Creatinine [Mass/Vol] 1.12 mg/dL Normal 0.70-1.30 [facility] Comment on above: Performed By: #### NATHANIEL RAMÍREZ, HFP ####[facility] (DEFAULT)[address] [place] [address] GFR/1.73 sq M.predicted among non-blacks MDRD (S/P/Bld) [Vol rate/Area] 79 mL/min/{1.73_m2} Normal >=60 [facility] Comment on above: Result Comment: Repo rted eGFR is based on the CKD-EPI 2020 equation using creatinine, age, and sex. Performed By: #### NATHANIEL RAMÍREZ, HFP ####[facility] (DEFAULT)[address] [facility] [place] [address] Glucose [Mass/Vol] 88 mg/dL Normal 70-99 [facility] Comment on above: Performed By: #### NATHANIEL RAMÍREZ, HFP ####[facility] (DEFAULT)[address] [facility] [place] [address] Osmolality [Osmolality] 294 mosm/kg Normal 278-305 [facility] Comment on above: Performed By: #### NATHANIEL RAMÍREZ, HFP ####[facility] (DEFAULT)[address] [place] [address] Potassium [Moles/Vol] 3.8 mmol/L Normal 3.5-5.0 [facility] Comment on above: Performed By: #### NATHANIEL RAMÍREZ, HFP ####[facility] (DEFAULT)[address] [place] [address] Sodium [Moles/Vol] 141 mmol/L Normal 135-145 [facility] Comment on above: Performed By: #### NATHANIEL RAMÍREZ, HFP ####[facility] (DEFAULT)[address] [place] [address] Urea nitrogen [Mass/Vol] 15 mg/dL Normal 7-25 [facility] Comment on above: Performed By: #### M NATHANIEL BLOOM, HFP ####[facility] (DEFAULT)[address] [place] [address] Urea nitrogen/Creatinine [Mass ratio] 13 mg/mg Normal [facility] Comment on above: Performed By: #### M NATHANIEL BLOOM, HFP ####[facility] (DEFAULT)[address] [place] [address] Cardiac catheterization stud yon 01-20-2024 [facility] Radiology Study observation (narrative) [facility] Radiology Study observation (narrative) [facility] EBV BY PCR, QUANTITATIVE,BLO ODOrdered By: Charlotte Jensen on 01-20-2024 EBV DNA ESTELITA+probe (Unsp spec) [#/Vol] EUNICE [facility] Interpretation and review of laboratory results Normal [facility] This test was perfor med using a real time PCR assay. The dynamic range for this assay is 1000-5,000,000 IU/mL. A result <1000 IU/mL does not rule out the presence of EBV DNA in quantities below the sensitivity of this assay. This test was developed and its performance characteristics determined by [facility]. It has not been cleared or approved by the FDA. The laboratory is regulated under CLIA as qualified to perform high-complexity testing. This test is used for clinical purposes. It should not be regarded as investigational or for research. [facility] HEPATIC FUNCTION PANELon Albumin [Mass/Vol] 3.7 g/dL 3.5 - 5.0 g/dL [facility] ALP [Catalytic activity/Vol] 73 U/L 32 - 126 U/L [facility] ALT [Catalytic activity/Vol] 12 U/L 10 - 52 U/L [facility] AST [Catalytic activity/Vol] 19 U/L 10 - 39 U/L [facility] Bilirubin [Mass/Vol] 2.1 mg/dL High NINF - 1.5 mg/dL [facility] Bilirubin.direct [Mass/Vol] 0.5 mg/dL High NINF - 0.3 mg/dL [facility] Interpretation and review of laboratory results Abnormal [facility] Protein [Mass/Vol] 6.1 g/dL Low 6.4 - 8.3 g/dL [facility] Albumin [Mass/Vol] 3.7 g/dL Normal 3.5-5.0 [facility] Comment on above: Performed By: #### NATHANIEL RAMÍREZ, HFP ####[facility] (DEFAULT)[address] [place] [address] ALP [Catalytic activity/Vol] 73 U/L Normal 32-126 [facility] Comment on above: Performed By: #### NATHANIEL RAMÍREZ, HFP ####[facility] (DEFAULT)[address] [place] [address] ALT [Catalytic activity/Vol] 12 U/L Normal 10-52 [facility] Comment on above: Performed By: #### NATHANIEL RAMÍREZ, HFP ####[facility] (DEFAULT)[address] [place] [address] AST [Catalytic activity/Vol] 19 U/L Normal 10-39 [facility] Comment on above: Performed By: #### NATHANIEL RAMÍREZ, HFP ####[facility] (DEFAULT)[address] [place] [address] Bilirubin [Mass/Vol] 2.1 mg/dL High <1.5 [facility] Comment on above: Performed By: #### NATHANIEL RAMÍREZ, HFP ####[facility] (DEFAULT)[address] [place] [address] Bilirubin.indirect [Mass/Vol] 0.5 mg/dL High <0.3 [facility] Comment on above: Performed By: #### TJ RAMÍREZ7, HFP ####[facility] (DEFAULT)[address] [place] [address] Protein [Mass/Vol] 6.1 g/dL Low 6.4-8.3 [facility] Comment on above: Performed By: #### M NATHANIEL BLOOM, HFP ####[facility] (DEFAULT)[address] [place] [address] ITRACONAZOLE LEVELon 024 Hydroxyitraconazole 7.6 mcg/mL Normal [facility] Comment on above: Order Comment: Pleas e draw level at specified interval PRIOR to dose. Result Comment: ---- REFERENCE VALUE No therapeutic range established; activity and serumconcentration are similar to parent drug. ADDITIONAL INFORMATION This test was developed and its performance characteristicsdetermined by [facility] in a manner consistent with CLIArequirements. This test has not been cleared or approved bythe U.S. Food and Drug Administration.Test Performed by:[address] [address]Bja Director: Rosendo Bose M.D. Ph.D.; CLIA# [id number] Performed By: #### Y ITCON ####[facility] (DEFAULT)[address] [place] [address], [place] [address] Itraconazole 6.0 mcg/mL Normal [facility] Comment on above: Order Comment: Pleas e draw level at specified interval PRIOR to dose. Result Comment: ---- REFERENCE VALUE-------------------------->0.5 (localized infection), >1.0 (systemic infection) Performed By: #### Y ITCON ####[facility] (DEFAULT)[address] [place] [address] MAGNESIUMon 01-20-2024 Interpretation and review of laboratory results Normal [facility] Magnesium [Mass/Vol] 1.6 mg/dL 1.6 - 2 .6 mg/dL [facility] Magnesium [Mass/Vol] 1.6 mg/dL Normal 1.6-2.6 [facility] Comment on above: Performed By: #### M GO, CHM7, [facility] ####[facility] (DEFAULT)[address] [place] [address] No Panel Informationon 01-20 [facility] POCT CO-OXIMETRYon Hemoglobin (Bld) [Mass/Vol] 12.8 g/dL Low 13.4 - 16.8 g/dL [facility] Interpretation and review of laboratory results Abnormal [facility] Oxyhemoglobin 69 % Low 94 - 98 % [facility] Ordering physician notified. Test performed at address of the patient encounter. [facility] Hemoglobin (Bld) [Mass/Vol] 13.3 g/dL Low 13.4 - 16.8 g/dL [facility] Interpretation and review of laboratory results Abnormal [facility] Oxyhemoglobin 69 % Low 94 - 98 % [facility] Ordering physician notified. Test performed at address of the patient encounter. [facility] PT,INR,PTTon 01-20-2024 aPTT Coag (PPP) [Time] 30.6 s [facility] INR Coag (Bld) [Relative time] 1.2 {INR} High 0.9 - 1.1 [facility] Interpretation and review of laboratory results Abnormal [facility] PT Coag (PPP) [Time] 15.5 s High [facility] aPTT Coag (Bld) [Time] 30.6 s Normal 24.0-34.3 [facility] Comment on above: Performed By: #### P TPTT ####[facility] (DEFAULT)[address] [place] [address] INR Coag (PPP) [Relative time] 1.2 {INR} High 0.9-1.1 [facility] Comment on above: Performed By: #### P TPTT ####[facility] (DEFAULT)[address] [place] [address] PT Coag (PPP) [Time] 15.5 s High 11.9-14.2 [facility] Comment on above: Performed By: #### P TPTT ####[facility] (DEFAULT)[address] [place] [address] TACROLIMUS LEVEL, TROUGH (UT E DRUG LEVEL)Ordered By: Yanira Marcum on 01-20-2024 Interpretation and review of laboratory results Normal [facility] Tacrolimus (Bld) [Mass/Vol] 7.7 ng/mL Bone Marrow Transplant: 4.0-12.0, Therapeutic: 5.0-15.0 [facility] Method performed is a chemiluminescent microparticle immunoasssay on the [employer] i2000. The range is based on experience at [facility] and users should be aware that target concentrations vary widely depending on concomitant therapy, time post-transplant, and desired degree of immunosuppression. [facility] TACROLIMUS LEVEL, TROUGH (UT E DRUG LEVEL)on 01-20-2024 Tacrolimus, Trough 7.7 ng/mL Normal Bone Susana ow Transplant: 4.0-12.0, Therapeutic: 5.0-15.0 [facility] Comment on above: Order Comment: Pleas e draw at specified interval PRIOR to dose. Do not hold dose to wait for level. Specimens batched twice per day, (M-F) and once per day weekendsMethod performed is a chemiluminescent microparticle immunoasssay on the [employer] i2000.The range is based on experience at [facility] and users should be aware that target concentrations vary widely depending on concomitant therapy, time post-transplant, and desired degree of immunosuppression. Performed By: #### T ACRO ####[facility] (DEFAULT)[address] [place] [address] CBC,PLATELETSon 01-19-2024 Erythrocyte distribution width (RBC) [Ratio] 13.9 % 10.9 - 14.3 % [facility] Hematocrit (Bld) [Volume fraction] 37.5 % Low 39.6 - 48.8 % [facility] Hemoglobin (Bld) [Mass/Vol] 12.1 g/dL Low [...] [facility] Platelets (Bld) [#/Vol] 163 10*3/uL 146 - 337 K/uL [facility] RBC (Bld) [#/Vol] 4.27 10*6/uL Low [facility] WBC (Bld) [#/Vol] 3.69 10*3/uL Low 3.73 - 10. 10 K/uL [facility] Hematocrit (Bld) [Volume fraction] 37.5 % Low 39.6-48.8 [facility] Comment on above: Performed By: #### H EMO ####[facility] (DEFAULT)[address] [place] [address] Hemoglobin (Bld) [Mass/Vol] 12.1 g/dL Low 13.4-16.8 [facility] Comment on above: Performed By: #### H EMO ####[facility] (DEFAULT)[address] [place] [address] MCV (RBC) [Entitic vol] 87.8 fL Normal 79.0-94.5 [facility] Comment on above: Performed By: #### H EMOGC ####[facility] (DEFAULT)[address] [place] [address] Mean Cell Hgb 28.3 pg Normal 26.1-33.3 [facility] Comment on above: Performed By: #### H EMOGC ####[facility] (DEFAULT)[address] [facility] [place] [address] Mean Cell Hgb Conc 32.3 g/dL Normal 31.9-36.5 [facility] Comment on above: Performed By: #### H EMOGC ####[facility] (DEFAULT)[address] [facility] [place] [address] Platelet mean volume (Bld) [Entitic vol] 10.4 fL Normal 8.7-12.3 [facility] Comment on above: Performed By: #### H EMOGC ####[facility] (DEFAULT)[address] [facility] [place] [place] [address] Platelets (Bld) [#/Vol] 163 10*3/uL Normal 146-337 [facility] Comment on above: Performed By: #### H EMOGC ####[facility] (DEFAULT)[address] [place] [address] RBC (Bld) [#/Vol] 4.27 10*6/uL Low 4.38-5.83 [facility] Comment on above: Performed By: #### H EMOGC ####[facility] (DEFAULT)[address] [facility] [place] [address] RBC Distribution 13.9 % Normal 10.9-14.3 [facility] Comment on above: Performed By: #### H EMOGC ####[facility] (DEFAULT)[address] [facility] [place] [place] [address] WBC (Bld) [#/Vol] 3.69 10*3/uL Low 3.73-10.10 [facility] Comment on above: Performed By: #### [place] [facility] [place] ####[facility] (DEFAULT)[address] [place] [address] CHEM 7 (LYTES,BUN,CREA,GLUC) on 01-19-2024 Anion gap [Moles/Vol] 14 mmol/L 7 - 17 mmol/L [facility] Chloride [Moles/Vol] 106 mmol/L 98 - 10 8 mmol/L [facility] CO2 [Moles/Vol] 24 mmol/L 21 - 31 mmol/L [facility] Creatinine [Mass/Vol] 1.13 mg/dL 0.70 - 1.30 mg/dL [facility] eGFR, CKD-EPI, Male 78 - PINF [facility] Comment on above: Reported eGFR is bas ed on the CKD-EPI 2020 equation using creatinine, age, and sex. Glucose [Mass/Vol] 86 mg/dL 70 - 99 mg/dL [facility] Osmolality Calc [Osmolality] 293 [facility] Potassium [Moles/Vol] 3.8 mmol/L 3.5 - 5.0 mmol/L [facility] Sodium [Moles/Vol] 140 mmol/L 135 - 145 mmol/L [facility] Urea nitrogen [Mass/Vol] 16 mg/dL 7 - 25 mg/dL [facility] Urea nitrogen/Creatinine [Mass ratio] 14 mg/mg [facility] Anion gap [Moles/Vol] 14 mmol/L Normal 7-17 [facility] Comment on above: Performed By: #### NATHANIEL RAMÍREZ ####[facility] (DEFAULT)[address] [place] [address] Chloride [Moles/Vol] 106 mmol/L Normal 98-108 [facility] Comment on above: Performed By: #### NATHANIEL RAMÍREZ ####[facility] (DEFAULT)[address] [place] [address] CO2 [Moles/Vol] 24 mmol/L Normal 21-31 [facility] Comment on above: Performed By: #### TJ RAMÍREZ7 ####[facility] (DEFAULT)[address] [place] [address] Creatinine [Mass/Vol] 1.13 mg/dL Normal 0.70-1.30 [facility] Comment on above: Performed By: #### TJ RAMÍREZ7 ####[facility] (DEFAULT)[address] [place] [address] GFR/1.73 sq M.predicted among non-blacks MDRD (S/P/Bld) [Vol rate/Area] 78 mL/min/{1.73_m2} Normal >=60 [facility] Comment on above: Result Comment: Repo rted eGFR is based on the CKD-EPI 2020 equation using creatinine, age, and sex. Performed By: #### TJ RAMÍREZ7 ####[facility] (DEFAULT)[address] [facility] [place] [place] [address] Glucose [Mass/Vol] 86 mg/dL Normal 70-99 [facility] Comment on above: Performed By: #### TJ RAMÍREZ7 ####[facility] (DEFAULT)[address] [facility] [place] [place] [address] Osmolality [Osmolality] 293 mosm/kg Normal 278-305 [facility] Comment on above: Performed By: #### TJ RAMÍREZ7 ####[facility] (DEFAULT)[address] [place] [address] Potassium [Moles/Vol] 3.8 mmol/L Normal 3.5-5.0 [facility] Comment on above: Performed By: #### Rod BLOOM CHM7 ####[facility] (DEFAULT)[address] [place] [address] Sodium [Moles/Vol] 140 mmol/L Normal 135-145 [facility] Comment on above: Performed By: #### M MERLE CHM7 ####[facility] (DEFAULT)[address] [place] [address] Urea nitrogen [Mass/Vol] 16 mg/dL Normal 7-25 [facility] Comment on above: Performed By: #### M MERLE, CHM7 ####[facility] (DEFAULT)[address] [place] [address] Urea nitrogen/Creatinine [Mass ratio] 14 mg/mg Normal [facility] Comment on above: Performed By: #### M MERLE CHM7 ####[facility] (DEFAULT)[address] [place] [address] EBV BY PCR, QUANTITATIVE,BLO ODon 01-19-2024 Ebv By Pcr, Quant, Blood <1000 Normal <1000 [facility] Comment on above: Order Comment: This test was performed using a real time PCR assay. The dynamic range for this assay is 1000-5,000,000 IU/mL. A result <1000 IU/mL does not rule out the presence of EBV DNA in quantities below the sensitivity of this assay. This test was developed and its performance characteristics determined by [facility]. It has not been cleared or approved by the FDA. The laboratory is regulated under CLIA as qualified to perform high-complexity testing. This test is used for clinical purposes. It should not be regarded as investigational or for research. Performed By: #### E BVPCR ####[facility] (DEFAULT)[address] [place] [address] HISTOPLASMA AND BLASTOMYCES ANTIGEN, ENZYME IMMUNOASSAY, SERMon 01-19-2024 Histoplasma/Blastomy antoina Ag Result Not detected Not Detected [facility] Comment on above: No antigen from Hist oplasma or Blastomyces detected. False negative results may occur depending on extent of disease, and/or site of infection. Repeat testing on a new specimen if clinically indicated. Histoplasma/Blastomy antonia Ag Value Not detected ng/mL [facility] Comment on above: ADDITIONAL INFORMATION This test was developed and its performance characteristics determined by [facility] in a manner consistent with CLIA requirements. This test has not been cleared or approved by the U.S. Food and Drug Administration. Test Performed by: [facility] [address] [place] [address] Sole Cutter: Rosendo Bose M.D. Ph.D.; CLIA# [id number] [facility] MAGNESIUMon 01-19-2024 Interpretation and review of laboratory results Normal [facility] Magnesium [Mass/Vol] 1.8 mg/dL 1.6 - 2 .6 mg/dL [facility] Magnesium [Mass/Vol] 1.8 mg/dL Normal 1.6-2.6 [facility] Comment on above: Performed By: #### M , [facility] ####[facility] (DEFAULT)[address] [place] [address] No Panel Informationon 01-19 [facility] TACROLIMUS LEVEL, TROUGH (UT E DRUG LEVEL)Ordered By: Raymundo Mehta on 01-19-2024 Interpretation and review of laboratory results Normal [facility] Tacrolimus (Bld) [Mass/Vol] 6.8 ng/mL Bone Marrow Transplant: 4.0-12.0, Therapeutic: 5.0-15.0 [facility] Method performed is a chemiluminescent microparticle immunoasssay on the [employer] i2000. The range is based on experience at [facility] and users should be aware that target concentrations vary widely depending on concomitant therapy, time post-transplant, and desired degree of immunosuppression. [facility] TACROLIMUS LEVEL, TROUGH (UT E DRUG LEVEL)on 01-19-2024 Tacrolimus, Trough 6.8 ng/mL Normal Bone Susana ow Transplant: 4.0-12.0, Therapeutic: 5.0-15.0 [facility] Comment on above: Order Comment: Pleas e draw at specified interval PRIOR to dose. Do not hold dose to wait for level. Specimens batched twice per day, (M-F) and once per day weekendsMethod performed is a chemiluminescent microparticle immunoasssay on the [employer] i2000.The range is based on experience at [facility] and users should be aware that target concentrations vary widely depending on concomitant therapy, time post-transplant, and desired degree of immunosuppression. Performed By: #### T ACRO ####[facility] (DEFAULT)[address] [place] [address] US AV fistulaOrdered By: Diana Reyes on 01-19-2024 [facility] Work Phone: US AV fistulaon 01-19-2024 Radiology Study observation (narrative) [facility] AFP TUMOR MARKEROrdered By: Francisca Alaniz on 01-18-2024 AFP.tumor marker [Mass/Vol] ng/mL NINF - 8.1 ng/mL [facility] Comment on above: This test was perfor med on the [employer] Immunoassay platform by [employer] which is a two-site sandwich chemiluminescent immunoassay. It is important to note that assays using different manufacturers and/or methods may not be comparable. Interpretation and review of laboratory results Normal [facility] CBC,PLATELETSon 01-18-2024 Erythrocyte distribution width (RBC) [Ratio] 13.9 % 10.9 - 14.3 % [facility] Hematocrit (Bld) [Volume fraction] 38.4 % Low 39.6 - 48.8 % [facility] Hemoglobin (Bld) [Mass/Vol] 12.1 g/dL Low 13.4 - 16.8 g/dL [facility] Interpretation and review of laboratory results Abnormal [facility] MCH (RBC) [Entitic mass] 27.8 pg 26.1 - 33.3 pg [facility] MCHC (RBC) [Mass/Vol] 31.5 g/dL Low 31.9 - 36.5 g/dL [facility] MCV (RBC) [Entitic vol] 88.3 fL 79.0 - 94.5 fL [facility] Platelet mean volume (Bld) [Entitic vol] 10.4 fL 8.7 - 12.3 fL [facility] Platelets (Bld) [#/Vol] 183 10*3/uL 146 - 337 K/uL [facility] RBC (Bld) [#/Vol] 4.35 10*6/uL Low [facility] WBC (Bld) [#/Vol] 3.66 10*3/uL Low 3.73 - 10. 10 K/uL [facility] Hematocrit (Bld) [Volume fraction] 38.4 % Low 39.6-48.8 [facility] Comment on above: Performed By: #### H EMO ####[facility] (DEFAULT)[address] [place] [address] Hemoglobin (Bld) [Mass/Vol] 12.1 g/dL Low 13.4-16.8 [facility] Comment on above: Performed By: #### H EMO ####[facility] (DEFAULT)[address] [place] [address] MCV (RBC) [Entitic vol] 88.3 fL Normal 79.0-94.5 [facility] Comment on above: Performed By: #### H EMO ####[facility] (DEFAULT)[address] [place] [address] Mean Cell Hgb 27.8 pg Normal 26.1-33.3 [facility] Comment on above: Performed By: #### H EMO ####[facility] (DEFAULT)[address] [place] [address] Mean Cell Hgb Conc 31.5 g/dL Low 31.9-36.5 [facility] Comment on above: Performed By: #### H EMOGC ####[facility] (DEFAULT)[address] [place] [address] Platelet mean volume (Bld) [Entitic vol] 10.4 fL Normal 8.7-12.3 [facility] Comment on above: Performed By: #### [facility] [place] ####[facility] (DEFAULT)[address] [place] [address] Platelets (Bld) [#/Vol] 183 10*3/uL Normal 146-337 [facility] Comment on above: Performed By: #### H EMO ####[facility] (DEFAULT)[address] [place] [address] RBC (Bld) [#/Vol] 4.35 10*6/uL Low 4.38-5.83 [facility] Comment on above: Performed By: #### [facility] [place] ####[facility] (DEFAULT)[address] [place] [address] RBC Distribution 13.9 % Normal 10.9-14.3 [facility] Comment on above: Performed By: #### [facility] [place] ####[facility] (DEFAULT)[address] [place] [address] WBC (Bld) [#/Vol] 3.66 10*3/uL Low 3.73-10.10 [facility] Comment on above: Performed By: #### [facility] [place] ####[facility] (DEFAULT)[address] [place] [address] CHEM 7 (LYTES,BUN,CREA,GLUC) on 01-18-2024 Anion gap [Moles/Vol] 11 mmol/L 7 - 17 mmol/L [facility] Chloride [Moles/Vol] 108 mmol/L 98 - 10 8 mmol/L [facility] CO2 [Moles/Vol] 26 mmol/L 21 - 31 mmol/L [facility] Creatinine [Mass/Vol] 1.00 mg/dL 0.70 - 1.30 mg/dL [facility] eGFR, CKD-EPI, Male - PINF [facility] Comment on above: Reported eGFR is [...] ratio] 16 mg/mg [facility] Anion gap [Moles/Vol] 11 mmol/L Normal 7-17 [facility] Comment on above: Performed By: #### M GO, CHM7, HFP, TSHQR ####[facility] (DEFAULT)[address] [place] [address] Chloride [Moles/Vol] 108 mmol/L Normal 98-108 [facility] Comment on above: Performed By: #### Rod GO, CHM7, HFP, TSHQR ####[facility] (DEFAULT)[address] [facility] [place] [address] CO2 [Moles/Vol] 26 mmol/L Normal 21-31 [facility] Comment on above: Performed By: #### M GO, CHM7, HFP, TSHQR ####[facility] (DEFAULT)[address] [place] [address] Creatinine [Mass/Vol] 1.00 mg/dL Normal 0.70-1.30 [facility] Comment on above: Performed By: #### M GO, CHM7, HFP, TSHQR ####[facility] (DEFAULT)[address] [place] [address] eGFR, CKD-EPI, Male > Normal >=60 [facility] Comment on above: Result Comment: Repo rted eGFR is based on the CKD-EPI 2020 equation using creatinine, age, and sex. Performed By: #### M GO, CHM7, HFP, TSHQR ####[facility] (DEFAULT)[address] [place] [address] Glucose [Mass/Vol] 89 mg/dL Normal 70-99 [facility] Comment on above: Performed By: #### M GO, CHM7, HFP, TSHQR ####[facility] (DEFAULT)[address] [place] [address] Osmolality [Osmolality] 295 mosm/kg Normal 278-305 [facility] Comment on above: Performed By: #### Rod GO, CHM7, HFP, TSHQR ####[facility] (DEFAULT)[address] [facility] [place] [address] Potassium [Moles/Vol] 3.9 mmol/L Normal 3.5-5.0 [facility] Comment on above: Performed By: #### Rod BLOOM, CHM7, HFP, TSHQR ####[facility] (DEFAULT)[address] [place] [address] Sodium [Moles/Vol] 141 mmol/L Normal 135-145 [facility] Comment on above: Performed By: #### M MERLE, CHM7, HFP, TSHQR ####[facility] (DEFAULT)[address] [facility] [place] [address] Urea nitrogen [Mass/Vol] 16 mg/dL Normal 7-25 [facility] Comment on above: Performed By: #### Rod BLOOM, CHM7, HFP, TSHQR ####[facility] (DEFAULT)[address] [facility] [place] [address] Urea nitrogen/Creatinine [Mass ratio] 16 mg/mg Normal [facility] Comment on above: Performed By: #### M GO, CHM7, HFP, TSHQR ####[facility] (DEFAULT)[address] [place] [address] Cardiac echo study Procedure Ordered By: Gian Carlos on 01-18-2024 Ao ASC index 1.63 cm/m2 [facility] Work Phone: Ao peak meliton 1.46 [facility]s [facility]: [phone] Ao SOV index 1.56 cm/m2 [facility] Work Phone: [phone] Ao STJ index 1.25 cm/m2 [facility] Work Phone: Ao VTI 35.74 [facility] Work Phone: Ascending aorta 3.39 [facility]: AV LVOT peak gradient 4 mmHg [facility] Work Phone: AV mean gradient 5 mmHg [facility] Work Phone: [phone] AV peak gradient 9 mmHG [facility] Work Phone: [phone] AV valve area 3.09 cm2 [facility] Work Phone: AV Velocity Ratio 0.73 [facility] Work Phone: [phone] VEGA (continuity Vmax) 3.01 cm2 [facility] Work Phone: [phone] VEGA (continuity VTI) 3.09 cm2 [facility] Work Phone: [phone] VEGA index (continuity Vmax) 1.45 m/s [facility] Work Phone: [phone] VEGA index (continuity VTI) 1.49 cm2/m2 [facility] Work Phone: Avg e' pk meliton 0.07 m/s [facility] Work Phone: Avg E/e' ratio 19.45 [facility] Work Phone: Body surface area Derived from formula 2.08 m2 [facility] Work Phone: BP EF 62 % [facility] Work Phone: DI (Vmax) 0.73 [facility] Work Phone: DI (VTI) 0.74 m/2 [facility] Work Phone: E wave decelartion time 180.38 msec [facility] Work Phone: e' lateral pk meliton 0.0789 [facility]: e' lateral pk meliton 0.08 m/s [facility] Work [facility]: e' septal pk meliton 0.0653 m/s [facility] Work Phone: e' septal pk meliton 0.07 m/s [facility] Work Phone: E/A ratio 2.67 [facility] Work Phone: E/e' lateral [facility] 17.62 [facility]: E/e' septal ratio 21.29 [facility] Work [facility]: EF SP 2CH 66 [facility] Work Phone: EF SP 4CH 58 [facility] Work Phone: FS 28 % 28 - 44 % [facility] Work Phone: IVC ostium 2.30 cm [facility] Work Phone: IVS 1.11 cm [facility] Work Phone: LA AREA 2CH 24.36 cm2 [facility] Work Phone: LA area 4CH 20.36 cm2 [facility] Work Phone: LA ESV BP (MOD) 64 mL [facility] Work Phone: LA ESV BP (MOD) index 31 mL/m2 [facility] Work Phone: LA ESV SP 2CH (MOD) 76 mL [facility] Work Phone: [phone] LA ESV SP 4CH (MOD) 53 mL [facility] Work Phone: LV EDV BP 180 mL [facility] Work Phone: [phone] LV EDV SP 2CH 190 mL [facility] Work Phone: LV EDV SP 4CH 166 mL [facility] Work Phone: [phone] LV ESV BP 69 mL [facility] Work Phone: [phone] LV ESV SP 2CH 65 mL [facility] Work Phone: LV ESV SP 4CH 70 mL [facility] Work Phone: LV mass 254.73 g [facility] Work Phone: LV Mass Index 122.5 g/m2 [facility] Work Phone: LV RWT 0.42 [facility] Work Phone: LV stroke volume BP (ml) 111 mL [facility] Work Phone: [phone] LV stroke volume index BP 53.37 mL/m2 [facility] Work Phone: LVIDD 5.53 cm [facility] Work Phone: LVIDS 3.97 cm [facility] Work Phone: LVOT area 4.15 cm2 [facility] Work Phone: LVOT diameter 2.30 cm [facility] Work Phone: LVOT peak meliton 1.06 m/s [facility] Work Phone: LVOT peak VTI 26.61 cm [facility] Work Phone: LVOT stroke volume 111 cm3 [facility] Work Phone: LVOT stroke volume index 53.13 ml/m2 [facility] Work Phone: Mr max meliton 4.21 m/s [facility] Work Phone: MR VTI 134.50 cm [facility] Work Phone: MV mean gradient 3 mmHg [facility] Work Phone: MV peak gradient 11 mmHg [facility] Work Phone: MV pk A meliton 0.52 m/s [facility] Work Phone: MV pk E meliton 1.39 m/s [facility] Work Phone: MV stenosis pressure 1/2 time 58.56 ms [facility] Work Phone: MV valve area by continuity eq 2.93 cm2 [facility] Work Phone: MV valve area p 1/2 method 3.76 cm2 [facility] Work Phone: MV VTI 37.70 cm [facility] Work Phone: MVA (continuity VTI) 2.92 cm [facility] Work Phone: O[facility] AV VTI RATIO PRE STRESS 0.74 [facility] Work Phone: OSU ECHO LV BIPLANE SYSTOLIC VOLUME INDEX 33.17 mL/m2 [facility] Work Phone: OSU ECHO LV BP DIASTOLIC VOLUME INDEX 86.54 mL/m2 [facility] Work Phone: OSU ECHO MR PEAK GRADIENT 70.94 mmHg [facility] Work Phone: PW 1.16 cm [facility] Work Phone: RA area 4CH (MOD) 14.50 cm2 [facility] Work Phone: RA vol index 4CH (MOD) 18.27 mL/m2 [facility] Work Phone: Right atrium volume 4 chamber method of disks 38 mL [facility] Work Phone: RV Area diastolic 33.20 cm2 [facility] Work Phone: RV Area systolic 21.30 cm2 [facility] Work Phone: RV basal diam 4.52 cm [facility] Work Phone: RV Fractional area change 35.8 % [facility] Work Phone: RV long diam 8.96 cm [facility] Work Phone: RV mid diam 3.70 cm [facility] Work Phone: RV S' 22.01 cm/s [facility] Work Phone: RVOT peak gradient 4 mmHg [facility] Work Phone: RVOT peak meliton 0.96 m/s [facility] Work Phone: RVOT peak VTI 20.86 cm [facility] Work Phone: Sinus 3.24 cm [facility] Work Phone: STJ 2.61 cm [facility] Work Phone: Stroke Volume 111 cm/mL [facility] Work Phone: Stroke volume index 53 [facility] Work Phone: TAPSE 2.19 cm [facility] Work Phone: [facility] Work Phone: Cardiac echo study [...] echocardiography study was performed. Imaging system used: [employer]. Indications Indications for study: shortness of breath. [facility] Radiology Study observation (narrative) [facility] HEPATIC FUNCTION PANELon Albumin [Mass/Vol] 3.5 g/dL 3.5 - 5.0 g/dL [facility] ALP [Catalytic activity/Vol] 70 U/L 32 - 126 U/L [facility] ALT [Catalytic activity/Vol] 8 U/L Low 10 - 52 U/L [facility] AST [Catalytic activity/Vol] 20 U/L 10 - 39 U/L [facility] Bilirubin [Mass/Vol] 1.7 mg/dL High NINF - 1.5 mg/dL [facility] Bilirubin.direct [Mass/Vol] 0.4 mg/dL High NINF - 0.3 mg/dL [facility] Protein [Mass/Vol] 6.0 g/dL Low 6.4 - 8.3 g/dL [facility] Albumin [Mass/Vol] 3.5 g/dL Normal 3.5-5.0 [facility] Comment on above: Performed By: #### M GO, CHM7, HFP, TSHQR ####[facility] (DEFAULT)[address] [place] [address] ALP [Catalytic activity/Vol] 70 U/L Normal 32-126 [facility] Comment on above: Performed By: #### M GO, CHM7, HFP, TSHQR ####[facility] (DEFAULT)[address] [place] [address] ALT [Catalytic activity/Vol] 8 U/L Low 10-52 [facility] Comment on above: Performed By: #### M GO, CHM7, HFP, TSHQR ####[facility] (DEFAULT)[address] [facility] [place] [address] AST [Catalytic activity/Vol] 20 U/L Normal 10-39 [facility] Comment on above: Performed By: #### M GO, CHM7, HFP, TSHQR ####[facility] (DEFAULT)[address] [place] [address] Bilirubin [Mass/Vol] 1.7 mg/dL High <1.5 [facility] Comment on above: Performed By: #### M GO, CHM7, HFP, TSHQR ####[facility] (DEFAULT)[address] [place] [address] Bilirubin.indirect [Mass/Vol] 0.4 mg/dL High <0.3 [facility] Comment on above: Performed By: #### M MERLE, CHM7, HFP, TSHQR ####[facility] (DEFAULT)[address] [place] [address], [place] [address] Protein [Mass/Vol] 6.0 g/dL Low 6.4-8.3 [facility] Comment on above: Performed By: #### M GO, CHM7, HFP, TSHQR ####[facility] (DEFAULT)[address] [place] [address] MAGNESIUMon 01-18-2024 Magnesium [Mass/Vol] 1.5 mg/dL Low 1.6 - 2 .6 mg/dL [facility] Magnesium [Mass/Vol] 1.5 mg/dL Low 1.6-2.6 [facility] Comment on above: Performed By: #### M MRELE, CHM7, HFP, TSHQR ####[facility] (DEFAULT)[address] [place] [address] No Panel Informationon 01-18 Interpretation and review of laboratory results Abnormal [facility] PT,INR,PTTon 01-18-2024 aPTT Coag (PPP) [Time] 30.0 s [facility] INR Coag (Bld) [Relative time] 1.1 {INR} 0.9 - 1.1 [facility] Interpretation and review of laboratory results Abnormal [facility] PT Coag (PPP) [Time] 14.5 s High [facility] aPTT Coag (Bld) [Time] 30.0 s Normal 24.0-34.3 [facility] Comment on above: Performed By: #### P TPTT ####[facility] (DEFAULT)[address] [place] [address] INR Coag (PPP) [Relative time] 1.1 {INR} Normal 0.9-1.1 [facility] Comment on above: Performed By: #### P TPTT ####[facility] (DEFAULT)[address] [place] [address] PT Coag (PPP) [Time] 14.5 s High 11.9-14.2 [facility] Comment on above: Performed By: #### P TPTT ####[facility] (DEFAULT)[address] [place] [address] TSH W/FT4 REFLEXon 4 Interpretation and review of laboratory results Normal [facility] TSH Qn 2.660 m[IU]/L [facility] TSH 2.660 uIU/mL Normal 0.550-4.780 [facility] Comment on above: Performed By: #### M GO, CHM7, HFP, TSHQR ####[facility] (DEFAULT)[address] [place] [address] AFP TUMOR MARKERon 4 AFP Tumor Marker <2.2 Normal <8.1 [facility] Comment on above: Result Comment: This test was performed on the [employer] Immunoassay platform by [employer] which is a two-site sandwich chemiluminescent immunoassay. It is important to note that assays using different manufacturers and/or methods may not be comparable. Performed By: #### A FPTMR ####[facility] (DEFAULT)[address] [place] [address] DARYL AURIS SCREEN BY PCRO rdered By: Mynor Alejandro on 01-17-2024 Daryl auris Screen by PCR Not detected Not Detected [facility] Interpretation and review of laboratory results Normal [facility] This test was perfor med using a real-time PCR assay. This test was developed, and its performance characteristics determined by [facility]. It has not been cleared or approved by the FDA. The laboratory is regulated under CLIA as qualified to perform high-complexity testing. This test is used for clinical purposes. It should not be regarded as investigational or for research. [facility] CBC,PLATELETSon 01-17-2024 Erythrocyte distribution width (RBC) [Ratio] 14.0 % 10.9 - 14.3 % [facility] Hematocrit (Bld) [Volume fraction] 37.2 % [...] [facility] Platelets (Bld) [#/Vol] 159 10*3/uL 146 - 337 K/uL [facility] RBC (Bld) [#/Vol] 4.30 10*6/uL Low [facility] WBC (Bld) [#/Vol] 3.69 10*3/uL Low 3.73 - 10. 10 K/uL [facility] Hematocrit (Bld) [Volume fraction] 37.2 % Low 39.6-48.8 [facility] Comment on above: Performed By: #### [facility] [place] ####[facility] (DEFAULT)[address] [place] [address] Hemoglobin (Bld) [Mass/Vol] 12.0 g/dL Low 13.4-16.8 [facility] Comment on above: Performed By: #### H EMOGC ####[facility] (DEFAULT)[address] [place] [address] MCV (RBC) [Entitic vol] 86.5 fL Normal 79.0-94.5 [facility] Comment on above: Performed By: #### H EMOGC ####[facility] (DEFAULT)[address] [place] [address] Mean Cell Hgb 27.9 pg Normal 26.1-33.3 [facility] Comment on above: Performed By: #### H EMOGC ####[facility] (DEFAULT)[address] [facility] [place] [address] Mean Cell Hgb Conc 32.3 g/dL Normal 31.9-36.5 [facility] Comment on above: Performed By: #### H EMOGC ####[facility] (DEFAULT)[address] [facility] [place] [address] Platelet mean volume (Bld) [Entitic vol] 10.5 fL Normal 8.7-12.3 [facility] Comment on above: Performed By: #### H EMOGC ####[facility] (DEFAULT)[address] [place] [address] Platelets (Bld) [#/Vol] 159 10*3/uL Normal 146-337 [facility] Comment on above: Performed By: #### H EMOGC ####[facility] (DEFAULT)[address] [place] [address] RBC (Bld) [#/Vol] 4.30 10*6/uL Low 4.38-5.83 [facility] Comment on above: Performed By: #### H EMOGC ####[facility] (DEFAULT)[address] [place] [address] RBC Distribution 14.0 % Normal 10.9-14.3 [facility] Comment on above: Performed By: #### H [facility] [place] ####[facility] (DEFAULT)[address] [place] [address] WBC (Bld) [#/Vol] 3.69 10*3/uL Low 3.73-10.10 [facility] Comment on above: Performed By: #### H [facility] [place] ####[facility] (DEFAULT)[address] [place] [address] CHEM 7 (LYTES,BUN,CREA,GLUC) on 01-17-2024 Anion gap [Moles/Vol] 13 mmol/L 7 - 17 mmol/L [facility] Chloride [Moles/Vol] 109 mmol/L High 98 - 10 8 mmol/L [facility] CO2 [Moles/Vol] 21 mmol/L 21 - 31 mmol/L [facility] Creatinine [Mass/Vol] 1.04 mg/dL 0.70 - 1.30 mg/dL [facility] eGFR, CKD-EPI, Male 86 - PINF [facility] Comment on above: Reported eGFR is bas ed on the CKD-EPI 2020 equation using creatinine, age, and sex. Glucose [Mass/Vol] 82 mg/dL 70 - 99 mg/dL [facility] Osmolality Calc [Osmolality] 292 [facility] Potassium [Moles/Vol] 4.4 mmol/L 3.5 - 5.0 mmol/L [facility] Sodium [Moles/Vol] 139 mmol/L 135 - 145 mmol/L [facility] Urea nitrogen [Mass/Vol] 17 mg/dL 7 - 25 mg/dL [facility] Urea nitrogen/Creatinine [Mass ratio] 16 mg/mg [facility] Anion gap [Moles/Vol] 13 mmol/L Normal 7-17 [facility] Comment on above: Performed By: #### M GO, CHM7, HFP ####[facility] (DEFAULT)[address] [place] [address] Chloride [Moles/Vol] 109 mmol/L High 98-108 [facility] Comment on above: Performed By: #### NATHANIEL RAMÍREZ, HFP ####[facility] (DEFAULT)[address] [facility] [place] [address] CO2 [Moles/Vol] 21 mmol/L Normal 21-31 [facility] Comment on above: Performed By: #### NATHANIEL RAMÍREZ, HFP ####[facility] (DEFAULT)[address] [facility] [place] [address] Creatinine [Mass/Vol] 1.04 mg/dL Normal 0.70-1.30 [facility] Comment on above: Performed By: #### NATHANIEL RAMÍREZ, HFP ####[facility] (DEFAULT)[address] [facility] [place] [address] GFR/1.73 sq M.predicted among non-blacks MDRD (S/P/Bld) [Vol rate/Area] 86 mL/min/{1.73_m2} Normal >=60 [facility] Comment on above: Result Comment: Repo rted eGFR is based on the CKD-EPI 2020 equation using creatinine, age, and sex. Performed By: #### NATHANIEL RAMÍREZ, HFP ####[facility] (DEFAULT)[address] [facility] [place] [address] Glucose [Mass/Vol] 82 mg/dL Normal 70-99 [facility] Comment on above: Performed By: #### NATHANIEL RAMÍREZ, HFP ####[facility] (DEFAULT)[address] [facility] [place] [address] Osmolality [Osmolality] 292 mosm/kg Normal 278-305 [facility] Comment on above: Performed By: #### NATHANIEL RAMÍREZ, HFP ####[facility] (DEFAULT)[address] [facility] [place] [address] Potassium [Moles/Vol] 4.4 mmol/L Normal 3.5-5.0 [facility] Comment on above: Performed By: #### NATHANIEL RAMÍREZ, HFP ####[facility] (DEFAULT)[address] [place] [address] Sodium [Moles/Vol] 139 mmol/L Normal 135-145 [facility] Comment on above: Performed By: #### M GO, CHM7, HFP ####[facility] (DEFAULT)[address] [place] [address] Urea nitrogen [Mass/Vol] 17 mg/dL Normal 7-25 [facility] Comment on above: Performed By: #### M GO, CHM7, HFP ####[facility] (DEFAULT)[address] [place] [address] Urea nitrogen/Creatinine [Mass ratio] 16 mg/mg Normal [facility] Comment on above: Performed By: #### M GO, CHM7, HFP ####[facility] (DEFAULT)[address] [place] [address] [place] ABDOMEN/PELVIS WITHOUT CO NTRASTon 01-17-2024 CT ABDOMEN/PELVIS WITHOUT CONTRAST Normal [facility] CT Abdomen and Pelvis WO [...] unremarkable. Kidneys: Severe atrophy of the bilateral zuni kidney is without hydronephrosis. Right lower quadrant [...] unremarkable. Kidneys: Severe atrophy of the bilateral zuni kidney is without hydronephrosis. Right lower quadrant [...] the middle lobe. Trace left pleural effusion. [facility] Radiology Study observation (narrative) [facility] HEPATIC FUNCTION PANELon Albumin [Mass/Vol] 3.5 g/dL 3.5 - 5.0 g/dL [facility] ALP [Catalytic activity/Vol] 73 U/L 32 - 126 U/L [facility] ALT [Catalytic activity/Vol] 7 U/L Low 10 - 52 U/L [facility] AST [Catalytic activity/Vol] 25 U/L 10 - 39 U/L [facility] Bilirubin [Mass/Vol] 1.8 mg/dL High NINF - 1.5 mg/dL [facility] Bilirubin.direct [Mass/Vol] 0.3 mg/dL High NINF - 0.3 mg/dL [facility] Protein [Mass/Vol] 6.0 g/dL Low 6.4 - 8.3 g/dL [facility] Albumin [Mass/Vol] 3.5 g/dL Normal 3.5-5.0 [facility] Comment on above: Performed By: #### NATHANIEL RAMÍREZ, HFP ####[facility] (DEFAULT)[address] [place] [address] ALP [Catalytic activity/Vol] 73 U/L Normal 32-126 [facility] Comment on above: Performed By: #### NATHANIEL RAMÍREZ, HFP ####[facility] (DEFAULT)[address] [facility] [place] [address] ALT [Catalytic activity/Vol] 7 U/L Low 10-52 [facility] Comment on above: Performed By: #### NATHANIEL RAMÍREZ, HFP ####[facility] (DEFAULT)[address] [facility] [place] [address] AST [Catalytic activity/Vol] 25 U/L Normal 10-39 [facility] Comment on above: Performed By: #### M TJ BLOOM7, HFP ####[facility] (DEFAULT)[address] [place] [address] Bilirubin [Mass/Vol] 1.8 mg/dL High <1.5 [facility] Comment on above: Performed By: #### M HELEN BLOOMM7, HFP ####[facility] (DEFAULT)[address] [place] [address] Bilirubin.indirect [Mass/Vol] 0.3 mg/dL High <0.3 [facility] Comment on above: Performed By: #### M HELEN BLOOMM7, HFP ####[facility] (DEFAULT)[address] [place] [address] Protein [Mass/Vol] 6.0 g/dL Low 6.4-8.3 [facility] Comment on above: Performed By: #### M HELEN BLOOMM7, HFP ####[facility] (DEFAULT)[address] [place] [address] HISTOPLASMA AND BLASTOMYCES ANTIGEN, ENZYME IMMUNOASSAY, SERMon 01-17-2024 Histoplasma/Blastomy antonia Ag Result Not detected Normal Not Detected [facility] Comment on above: Result Comment: No a ntigen from Histoplasma or Blastomyces detected. Falsenegative results may occur depending on extent of disease,and/or site of infection. Repeat testing on a new specimenif clinically indicated. Performed By: #### H [facility] ####[facility] (DEFAULT)[address] [place] [address] Histoplasma/Blastomy antonia Ag Value Not detected Normal [facility] Comment on above: Result Comment: ---- ADDITIONAL INFORMATION This test was developed and its performance characteristicsdetermined by [facility] in a manner consistent with CLIArequirements. This test has not been cleared or approved bythe U.S. Food and Drug Administration.Test Performed by:[address], [place], [place] [address]Xzw Director: Rosendo Bose M.D. Ph.D.; CLIA# [id number] Performed By: #### H IBAG ####[facility] (DEFAULT)[address] [place] [address] MAGNESIUMon 01-17-2024 Interpretation and review of laboratory results Normal [facility] Magnesium [Mass/Vol] 1.7 mg/dL 1.6 - 2 .6 mg/dL [facility] Magnesium [Mass/Vol] 1.7 mg/dL Normal 1.6-2.6 [facility] Comment on above: Performed By: #### M MERLE, CHM7, HFP ####[facility] (DEFAULT)[address] [place] [address] No Panel Informationon 01-17 Interpretation and review of laboratory results Abnormal [facility] PT,INR,PTTon 01-17-2024 aPTT Coag (PPP) [Time] 29.9 s [facility] INR Coag (Bld) [Relative time] 1.1 {INR} 0.9 - 1.1 [facility] Interpretation and review of laboratory results Abnormal [facility] PT Coag (PPP) [Time] 14.5 s High [facility] aPTT Coag (Bld) [Time] 29.9 s Normal 24.0-34.3 [facility] Comment on above: Performed By: #### P TPTT ####[facility] (DEFAULT)[address] [place] [address] INR Coag (PPP) [Relative time] 1.1 {INR} Normal 0.9-1.1 [facility] Comment on above: Performed By: #### P TPTT ####[facility] (DEFAULT)[address] [place] [address] PT Coag (PPP) [Time] 14.5 s High 11.9-14.2 [facility] Comment on above: Performed By: #### P TPTT ####[facility] (DEFAULT)[address] [place] [address] B-TYPE NATRIURETIC PEPTIDE ( BRAIN)on 01-16-2024 Interpretation and review of laboratory results Abnormal [facility] Natriuretic peptide B (Bld) [Mass/Vol] 212 pg/mL High 0 - 100 pg/mL [facility] Natriuretic peptide B (Bld) [Mass/Vol] 212 pg/mL High 0-100 [facility] Comment on above: Performed By: #### B ELECTRICAL INSPECTOR ####[facility] (DEFAULT)[address] [place] [address] CALCIUMon 01-16-2024 Calcium [Mass/Vol] 8.5 mg/dL Low 8.6 - 10. 5 mg/dL [facility] Calcium [Mass/Vol] 8.5 mg/dL Low 8.6-10.5 [facility] Comment on above: Performed By: #### C A, MGO, CHM7, HFP, IPB ####[facility] (DEFAULT)[address] [place] [address] DARYL AURIS SCREEN BY PCRo n 01-16-2024 Daryl auris Screen by PCR Not detected Normal Not Detected [facility] Comment on above: Order Comment: This test was performed using a real-time PCR assay. This test was developed, and its performance characteristics determined by [facility] at [facility]. It has not been cleared or approved by the FDA. The laboratory is regulated under CLIA as qualified to perform high-complexity testing. This test is used for clinical purposes. It should not be regarded as investigational or for research. Performed By: #### C ANDIDA AURIS SCREEN BY PCR ####[facility] (DEFAULT)[address] [place] [address] CBC AND ELECTRONIC DIFFon Basophils (Bld) [#/Vol] K/uL 0.00 - 0.09 K/uL [facility] Basophils/100 WBC (Bld) 0.6 % [facility] Differential cell count method Nom (Bld) Electronic Differential [facility] Eosinophils (Bld) [#/Vol] 0.09 10*3/uL 0.00 - 0.48 K/uL [facility] Eosinophils/100 WBC (Bld) 2.5 % [facility] Erythrocyte distribution width (RBC) [Ratio] 14.0 % 10.9 - 14.3 % [facility] Hematocrit (Bld) [Volume fraction] 37.4 % Low 39.6 - 48.8 % [facility] Hemoglobin (Bld) [Mass/Vol] 12.1 g/dL Low 13.4 - 16.8 g/dL [facility] Immature granulocytes (Bld) [#/Vol] K/uL NINF - 0.07 K/uL [facility] Immature granulocytes/100 WBC (Bld) 0.3 % [facility] Interpretation and review of laboratory results Abnormal [facility] Lymphocytes (Bld) [#/Vol] 1.16 10*3/uL 0.83 - 3.57 K/uL [facility] Lymphocytes/100 WBC (Bld) 32.0 % [facility] MCH (RBC) [Entitic mass] 28.4 pg 26.1 - 33.3 pg [facility] MCHC (RBC) [Mass/Vol] 32.4 g/dL 31.9 - 36.5 g/dL [facility] MCV (RBC) [Entitic vol] 87.8 fL 79.0 - 94.5 fL [facility] Monocytes (Bld) [#/Vol] 0.43 10*3/uL 0.24 - 0.93 K/uL [facility] Monocytes/100 WBC (Bld) 11.9 % [facility] Neutrophils (Bld) [#/Vol] 1.91 10*3/uL 1.57 - 6.19 K/uL [facility] Nucleated RBC/100 WBC (Bld) [Ratio] 0.0 % NINF [facility] Platelet mean volume (Bld) [Entitic vol] 10.1 fL 8.7 - 12.3 fL [facility] Platelets (Bld) [#/Vol] 155 10*3/uL 146 - 337 K/uL [facility] RBC (Bld) [#/Vol] 4.26 10*6/uL Low [facility] Segmented neutrophils/100 WBC (Bld) 52.7 % [facility] WBC (Bld) [#/Vol] 3.62 10*3/uL Low 3.73 - 10. 10 K/uL [facility] Abs Baso Auto < Normal 0.00-0.09 [facility] Comment on above: Performed By: #### L [id number] ####[facility] (DEFAULT)[address] [place] [address] Basophils/100 WBC (Bld) 0.6 % Normal [facility] Comment on above: Performed By: #### L [id number] ####[facility] (DEFAULT)[address] [place] [address] DIFF STATUS Electronic Differential Normal [facility] Comment on above: Performed By: #### L [id number] ####[facility] (DEFAULT)[address] [place] [address] Eosinophils (Bld) [#/Vol] 0.09 10*3/uL Normal 0.00-0.48 [facility] Comment on above: Performed By: #### L [id number] ####[facility] (DEFAULT)[address] [place] [address] Eosinophils/100 WBC (Bld) 2.5 % Normal [facility] Comment on above: Performed By: #### L [id number] ####[facility] (DEFAULT)[address] [place] [address] Hematocrit (Bld) [Volume fraction] 37.4 % Low 39.6-48.8 [facility] Comment on above: Performed By: #### L [id number] ####[facility] (DEFAULT)[address] [place] [address] Hemoglobin (Bld) [Mass/Vol] 12.1 g/dL Low 13.4-16.8 [facility] Comment on above: Performed By: #### L [id number] ####[facility] (DEFAULT)[address] [place] [address] Immature Grans % 0.3 % Normal [facility] Comment on above: Performed By: #### L [id number] ####[facility] (DEFAULT)[address] [place] [address] Immature Grans Absolute < Normal <=0.07 [facility] Comment on above: Performed By: #### L [id number] ####[facility] (DEFAULT)[address] [place] [address] Lymphocytes (Bld) [#/Vol] 1.16 10*3/uL Normal 0.83-3.57 [facility] Comment on above: Performed By: #### L [id number] ####[facility] (DEFAULT)[address] [place] [address] Lymphocytes/100 WBC (Bld) 32.0 % Normal [facility] Comment on above: Performed By: #### L [id number] ####[facility] (DEFAULT)[address] [place] [address] [place] [address] MCV (RBC) [Entitic vol] 87.8 fL Normal 79.0-94.5 [facility] Comment on above: Performed By: #### L [id number] ####[facility] (DEFAULT)[address] [place] [address] Mean Cell Hgb 28.4 pg Normal 26.1-33.3 [facility] Comment on above: Performed By: #### L [id number] ####[facility] (DEFAULT)[address] [facility] [place] [address] Mean Cell Hgb Conc 32.4 g/dL Normal 31.9-36.5 [facility] Comment on above: Performed By: #### L [id number] ####[facility] (DEFAULT)[address] [place] [address] Monocytes (Bld) [#/Vol] 0.43 10*3/uL Normal 0.24-0.93 [facility] Comment on above: Performed By: #### L [id number] ####[facility] (DEFAULT)[address] [facility] [place] [address] Monocytes/100 WBC (Bld) 11.9 % Normal [facility] Comment on above: Performed By: #### L [id number] ####[facility] (DEFAULT)[address] [facility] [place] [address] Nucleated RBC 0.0 /100 WBC Normal <=0.2 [facility] Comment on above: Performed By: #### L [id number] ####[facility] (DEFAULT)[address] [facility] [place] [address] Platelet mean volume (Bld) [Entitic vol] 10.1 fL Normal 8.7-12.3 [facility] Comment on above: Performed By: #### L [id number] ####[facility] (DEFAULT)[address] [facility] [place] [address] Platelets (Bld) [#/Vol] 155 10*3/uL Normal 146-337 [facility] Comment on above: Performed By: #### L [id number] ####[facility] (DEFAULT)[address] [facility] [place] [place] [address] RBC (Bld) [#/Vol] 4.26 10*6/uL Low 4.38-5.83 [facility] Comment on above: Performed By: #### L [id number] ####[facility] (DEFAULT)[address] [place] [address] RBC Distribution 14.0 % Normal 10.9-14.3 [facility] Comment on above: Performed By: #### L [id number] ####[facility] (DEFAULT)[address] [place] [address] Segs + Bands Auto 52.7 % Normal [facility] Comment on above: Performed By: #### L [id number] ####[facility] (DEFAULT)[address] [place] [address] Segs + Bands,Absolute Auto 1.91 K/uL Normal 1.57-6.19 [facility] Comment on above: Performed By: #### L [id number] ####[facility] (DEFAULT)[address] [place] [address] WBC (Bld) [#/Vol] 3.62 10*3/uL Low 3.73-10.10 [facility] Comment on above: Performed By: #### L [id number] ####[facility] (DEFAULT)[address] [place] [address] CHEM 7 (LYTES,BUN,CREA,GLUC) on 01-16-2024 Anion gap [Moles/Vol] 11 mmol/L 7 - 17 mmol/L [facility] Chloride [Moles/Vol] 108 mmol/L 98 - 10 8 mmol/L [facility] CO2 [Moles/Vol] 24 mmol/L 21 - 31 mmol/L [facility] Creatinine [Mass/Vol] 1.04 mg/dL 0.70 - 1.30 mg/dL [facility] eGFR, CKD-EPI, Male 86 - PINF [facility] Comment on above: Reported eGFR is bas ed on the CKD-EPI 2020 equation using creatinine, age, and sex. Glucose [Mass/Vol] 95 mg/dL 70 - 99 mg/dL [facility]smolality Cal[facility]ality] [facility] Potassium [Moles/Vol] 4.0 mmol/L 3.5 - 5.0 mmol/L [facility] Sodium [Moles/Vol] 139 mmol/L 135 - 145 mmol/L [facility] Urea nitrogen [Mass/Vol] 19 mg/dL 7 - 25 mg/dL [facility] Urea nitrogen/Creatinine [Mass ratio] 18 mg/mg [facility] Anion gap [Moles/Vol] 11 mmol/L Normal 7-17 [facility] Comment on above: Performed By: #### C A, MGO, CHM7, HFP, IPB ####[facility] (DEFAULT)[address] [place] [address] Chloride [Moles/Vol] 108 mmol/L Normal 98-108 [facility] Comment on above: Performed By: #### C A, MGO, CHM7, HFP, IPB ####[facility] (DEFAULT)[address] [place] [address] CO2 [Moles/Vol] 24 mmol/L Normal 21-31 [facility] Comment on above: Performed By: #### C A, MGO, CHM7, HFP, IPB ####[facility] (DEFAULT)[address] [place] [address] Creatinine [Mass/Vol] 1.04 mg/dL Normal 0.70-1.30 [facility] Comment on above: Performed By: #### C A, MGO, CHM7, HFP, IPB ####[facility] (DEFAULT)[address] [place] [address] GFR/1.73 sq M.predicted among non-blacks MDRD (S/P/Bld) [Vol rate/Area] 86 mL/min/{1.73_m2} Normal >=60 [facility] Comment on above: Result Comment: Repo rted eGFR is based on the CKD-EPI 2020 equation using creatinine, age, and sex. Performed By: #### C A, MGO, CHM7, HFP, IPB ####[facility] (DEFAULT)[address] [place] [address] Glucose [Mass/Vol] 95 mg/dL Normal 70-99 [facility] Comment on above: Performed By: #### C A, MGO, CHM7, HFP, IPB ####[facility] (DEFAULT)[address] [place] [address] Osmolality [Osmolality] 293 mosm/kg Normal 278-305 [facility] Comment on above: Performed By: #### C A, MGO, CHM7, HFP, IPB ####[facility] (DEFAULT)[address] [place] [address] Potassium [Moles/Vol] 4.0 mmol/L Normal 3.5-5.0 [facility] Comment on above: Performed By: #### C A, MGO, CHM7, HFP, IPB ####[facility] (DEFAULT)[address] [place] [address] Sodium [Moles/Vol] 139 mmol/L Normal 135-145 [facility] Comment on above: Performed By: #### C A, MGO, CHM7, HFP, IPB ####[facility] (DEFAULT)[address] [place] [address] Urea nitrogen [Mass/Vol] 19 mg/dL Normal 7-25 [facility] Comment on above: Performed By: #### C A, MGO, CHM7, HFP, IPB ####[facility] (DEFAULT)[address] [place] [address] Urea nitrogen/Creatinine [Mass ratio] 18 mg/mg Normal [facility] Comment on above: Performed By: #### C A, MGO, CHM7, HFP, IPB ####[facility] (DEFAULT)[address] [place] [address] D-DIMER,QUANTITATIVEOrdered By: Shaji Kelly on 01-16-2024 Fibrin D-dimer FEU (PPP) [Mass/Vol] 0.67 High NINF [facility] Comment on above: The D-Dimer assay is intended for use in conjuction with a clinical pretest probability (PTP) assessment model to exclude pulmonary embolism (PE) and as an aid in the diagnosis of Deep Vein Thrombosis (DVT) in outpatients suspected of PE or DVT. For the assay in use at The [facility] ([facility]), a cutoff of <0.50 mcg/mL has a Negative Predictive Value of 99.7% for exclusion of DVT in low and moderate PTP patients. Interpretation and review of laboratory results Abnormal [facility] D-DIMER,QUANTITATIVEon 01-16 D-Dimer, High Sensitivity 0.67 mcg/mL FEU High <0.50 [facility] Comment on above: Result Comment: The D-Dimer assay is intended for use in conjuction with a clinical pretest probability (PTP) assessment model to exclude pulmonary embolism (PE) and as an aid in the diagnosis of Deep Vein Thrombosis (DVT) in outpatients suspected of PE or DVT. For the assay in use at The [facility] ([facility]), a cutoff of <0.50 mcg/mL has a Negative Predictive Value of 99.7% for exclusion of DVT in low and moderate PTP patients. Performed By: #### P TPTT, HSDDI ####[facility] (DEFAULT)[address] [place] [address] HEPATIC FUNCTION PANELon Albumin [Mass/Vol] 3.7 g/dL 3.5 - 5.0 g/dL [facility] ALP [Catalytic activity/Vol] 70 U/L 32 - 126 U/L [facility] ALT [Catalytic activity/Vol] 8 U/L Low 10 - 52 U/L [facility] AST [Catalytic activity/Vol] 21 U/L 10 - 39 U/L [facility] Bilirubin [Mass/Vol] 1.9 mg/dL High [facility] - 1.5 mg/dL [facility] Bilirubin.direct [Mass/Vol] 0.4 mg/dL High NINF - 0.3 mg/dL [facility] Protein [Mass/Vol] 6.1 g/dL Low 6.4 - 8.3 g/dL [facility] Albumin [Mass/Vol] 3.7 g/dL Normal 3.5-5.0 [facility] Comment on above: Performed By: #### C A, MGO, CHM7, HFP, IPB ####[facility] (DEFAULT)[address] [place] [address] ALP [Catalytic activity/Vol] 70 U/L Normal 32-126 [facility] Comment on above: Performed By: #### C A, MGO, CHM7, HFP, IPB ####[facility] (DEFAULT)[address] [place] [address] ALT [Catalytic activity/Vol] 8 U/L Low 10-52 [facility] Comment on above: Performed By: #### C A, MGO, CHM7, HFP, IPB ####[facility] (DEFAULT)[address] [place] [address] AST [Catalytic activity/Vol] 21 U/L Normal 10-39 [facility] Comment on above: Performed By: #### C A, MGO, CHM7, HFP, IPB ####[facility] (DEFAULT)[address] [place] [address] Bilirubin [Mass/Vol] 1.9 mg/dL High <1.5 [facility] Comment on above: Performed By: #### C A, MGO, CHM7, HFP, IPB ####[facility] (DEFAULT)[address] [place] [address] Bilirubin.indirect [Mass/Vol] 0.4 mg/dL High <0.3 [facility] Comment on above: Performed By: #### C A, MGO, CHM7, HFP, IPB ####[facility] (DEFAULT)[address] [place] [address] Protein [Mass/Vol] 6.1 g/dL Low 6.4-8.3 [facility] Comment on above: Performed By: #### C Tray MGO, CHM7, HFP, IPB ####[facility] (DEFAULT)[address] [place] [address] MAGNESIUMon 01-16-2024 Magnesium [Mass/Vol] 1.7 mg/dL 1.6 - 2 .6 mg/dL [facility] Magnesium [Mass/Vol] 1.7 mg/dL Normal 1.6-2.6 [facility] Comment on above: Performed By: #### C Tray, MGO, CHM7, HFP, IPB ####[facility] (DEFAULT)[address] [place] [address] No Panel Informationon 01-16 Interpretation and review of laboratory results Abnormal [facility] Interpretation and review of laboratory results Normal [facility] PHOSPHATE, INORGANICon 01-16 Phosphate [Mass/Vol] 4.1 mg/dL 2.2 - 4 .6 mg/dL [facility] Phosphorous 4.1 mg/dL Normal 2.2-4.6 [facility] Comment on above: Performed By: #### C A, MGO, CHM7, HFP, IPB ####[facility] (DEFAULT)[address] [place] [address] PT,INR,PTTon 01-16-2024 aPTT Coag (PPP) [Time] 29.6 s [facility] INR Coag (Bld) [Relative time] 1.2 {INR} High 0.9 - 1.1 [facility] Interpretation and review of laboratory results Abnormal [facility] PT Coag (PPP) [Time] 14.9 s High [facility] aPTT Coag (Bld) [Time] 29.6 s Normal 24.0-34.3 [facility] Comment on above: Performed By: #### P TPTT, HSDDI ####[facility] [facility] (DEFAULT[facility] [place] [address] INR Coag (PPP) [Relative time] 1.2 {INR} High 0.9-1.1 [facility] Comment on above: Performed By: #### P TPTT, HSDDI ####[facility] (DEFAULT)[address] [facility] [place] [address] PT Coag (PPP) [Time] 14.9 s High 11.9-14.2 [facility] Comment on above: Performed By: #### P TPTT, HSDDI ####[facility] (DEFAULT)[address] [place] [address] TACROLIMUS LEVEL, TROUGH (UT E DRUG LEVEL)Ordered By: Jimy Castillo on 01-16-2024 Interpretation and review of laboratory results Normal [facility] Tacrolimus (Bld) [Mass/Vol] 5.7 ng/mL Bone Marrow Transplant: 4.0-12.0, Therapeutic: 5.0-15.0 [facility] Method performed is a chemiluminescent microparticle immunoasssay on the [employer] i2000. The range is based on experience at [facility] and users should be aware that target concentrations vary widely depending on concomitant therapy, time post-transplant, and desired degree of immunosuppression. [facility] TACROLIMUS LEVEL, TROUGH (UT E DRUG LEVEL)on 01-16-2024 Tacrolimus, Trough 5.7 ng/mL Normal Bone Susana ow Transplant: 4.0-12.0, Therapeutic: 5.0-15.0 [facility] Comment on above: Order Comment: Pleas e draw at specified interval PRIOR to dose. Do not hold dose to wait for level. Specimens batched twice per day, (M-F) and once per day weekendsMethod performed is a chemiluminescent microparticle immunoasssay on the [employer] i2000.The range is based on experience at [facility] and users should be aware that target concentrations vary widely depending on concomitant therapy, time post-transplant, and desired degree of immunosuppression. Performed By: #### T ACRO ####[facility] (DEFAULT)[address] [place] [address] US ABDOMEN LIVER DOPPLERon 0 01-16-2024 US ABDOMEN LIVER DOPPLER Normal [facility] US.doppler Abdominal vessels on 01-16-2024 IMPRESSION: 1. [...] Trace right upper quadrant ascites. [facility] Radiology Study observation (narrative) [facility] US.doppler Abdominal vessels Ordered By: Iona Duran on 01-16-2024 [facility] Work Phone: XR CHEST PA AND LATERAL 2 EWSon 01-16-2024 XR CHEST PA AND LATERAL 2 VIEWS Normal [facility] XR Chest PA and Lateralon IMPRESSION: Moderate [...] IMPRESSION: Moderate right pleural effusion. [facility] Radiology Study observation (narrative) [facility] XR Chest PA and LateralOrder ed By: Daisha Patterson on 01-16-2024 [facility] Work Phone: ALL CBC WITH AUTO DIFFon BASOPHILS ABSOLUTE AUTO 0.0 [facility] Basophils/100 WBC (Bld) 0.5 % 0.2 - 2.0 % [facility] Eosinophils/100 WBC (Bld) 2.8 % 0.9 - 7.0 % [facility] Erythrocyte distribution width (RBC) [Ratio] 13.8 % 11.0 - 15.0 % [facility] Hematocrit (Bld) [Volume fraction] 43.7 % 42.0 - 54.0 % [facility] Hemoglobin (Bld) [Mass/Vol] 14.0 g/dL 14.0 - 18.0 g/dL [facility] IMMATURE GRANULOCYTES ABS AUTO 0.01 [facility] Immature granulocytes/100 WBC (Bld) 0.3 % 0.0 - 0.5 % [facility] LYMPHOCYTES ABSOLUTE AUTO 1.5 [facility] Lymphocytes/100 WBC (Bld) 37.5 % 20.5 - 60.0 % [facility] MCH (RBC) [Entitic mass] 28.4 pg 25.9 - 34.0 pg [facility] MCHC (RBC) [Mass/Vol] 32.0 g/dL 29.9 - 35.2 g/dL [facility] MCV (RBC) [Entitic vol] 88.6 fL 80.0 - 94.0 fL [facility] MONOCYTES ABSOLUTE AUTO 0.5 [facility] Monocytes/100 WBC (Bld) 11.9 % 1.7 - 12.0 % [facility] NEUTROPHILS ABSOLUTE AUTO 1.9 [facility] Neutrophils/100 WBC (Bld) 47.0 % 43.0 - 75.0 % [facility] Platelet mean volume (Bld) [Entitic vol] 10.3 fL 9.5 - 13.5 fL [facility] PLT 180 [facility] RBC 4.93 [facility] WBC 4.0 [facility] ALL CBC WITH AUTO DIFFon BASOPHILS ABSOLUTE AUTO 0.0 [facility] Basophils/100 WBC (Bld) 0.5 % 0.2 - 2.0 % [facility] Eosinophils/100 WBC (Bld) 2.6 % 0.9 - 7.0 % [facility] Erythrocyte distribution width (RBC) [Ratio] 13.5 % 11.0 - 15.0 % [facility] Hematocrit (Bld) [Volume fraction] 43.8 % 42.0 - 54.0 % [facility] Hemoglobin (Bld) [Mass/Vol] 14.0 g/dL 14.0 - 18.0 g/dL [facility] IMMATURE GRANULOCYTES ABS AUTO 0.00 [facility] Immature granulocytes/100 WBC (Bld) 0.0 % 0.0 - 0.5 % [facility] Interpretation and review of laboratory results Abnormal [facility] LYMPHOCYTES ABSOLUTE AUTO 1.8 [facility] Lymphocytes/100 WBC (Bld) 45.2 % 20.5 - 60.0 % [facility] MCH (RBC) [Entitic mass] 27.9 pg 25.9 - 34.0 pg [facility] MCHC (RBC) [Mass/Vol] 32.0 g/dL 29.9 - 35.2 g/dL [facility] MCV (RBC) [Entitic vol] 87.4 fL 80.0 - 94.0 fL [facility] MONOCYTES ABSOLUTE AUTO 0.4 [facility] Monocytes/100 WBC (Bld) 9.6 % 1.7 - 12.0 % [facility] NEUTROPHILS ABSOLUTE AUTO 1.6 [facility] Neutrophils/100 WBC (Bld) 42.1 % Low 43.0 - 75.0 % [facility] Platelet mean volume (Bld) [Entitic vol] 9.8 fL 9.5 - 13.5 fL [facility] TB EO # 0.1 [facility] TB PLT 180 [facility] RBC 5.01 [facility] WBC 3.9 Low [facility] CHEM 7 (LYTES,BUN,CREA,GLUC) on 09-11-2023 [...] Hospital eGFR, CKD-EPI, Male 78 - PINF [facility] Glucose [Mass/Vol] 109 mg/dL High 70 [...] ratio] 14 mg/mg [facility] Anion gap [Moles/Vol] 13 mmol/L Normal 7-17 [facility] Comment on above: Performed By: #### NATHANIEL RAMÍREZ ####[facility] (DEFAULT)[address] [place] [address] Chloride [Moles/Vol] 111 mmol/L High 98-108 [facility] Comment on above: Performed By: #### TJ RAMÍREZ7 ####[facility] (DEFAULT)[address] [place] [address] CO2 [Moles/Vol] 20 mmol/L Low 21-31 [facility] Comment on above: Performed By: #### TJ RAMÍREZ7 ####[facility] (DEFAULT)[address] [facility] [place] [address] Creatinine [Mass/Vol] 1.13 mg/dL Normal 0.70-1.30 [facility] Comment on above: Performed By: #### TJ RAMÍREZ7 ####[facility] (DEFAULT)[address] [place] [address], [place] [address] GFR/1.73 sq M.predicted among non-blacks MDRD (S/P/Bld) [Vol rate/Area] 78 mL/min/{1.73_m2} Normal >=60 [facility] Comment on above: Result Comment: Repo rted eGFR is based on the CKD-EPI 2020 equation using creatinine, age, and sex. Performed By: #### NATHANIEL RAMÍREZ ####[facility] (DEFAULT)[address] [place] [address], [place] [address] Glucose [Mass/Vol] 109 mg/dL High 70-99 [facility] Comment on above: Performed By: #### TJ RAMÍREZ7 ####[facility] (DEFAULT)[address] [place], [place] [address], [place] [address] Osmolality [Osmolality] 295 mosm/kg Normal 278-305 [facility] Comment on above: Performed By: #### TJ RAMÍREZ7 ####[facility] (DEFAULT)[address] [place], [place] [address], [place] [address] Potassium [Moles/Vol] 4.3 mmol/L Normal 3.5-5.0 [facility] Comment on above: Performed By: #### TJ RAMÍREZ7 ####[facility] (DEFAULT)[address] [facility] [place] [address] Sodium [Moles/Vol] 140 mmol/L Normal 135-145 [facility] Comment on above: Performed By: #### Rod BLOOM CHM7 ####[facility] (DEFAULT)[address] [place] [address] Urea nitrogen [Mass/Vol] 16 mg/dL Normal 7- [facility] Comment on above: Performed By: #### Rod BLOOM CHM7 ####[facility] (DEFAULT)[address] [place] [address] Urea nitrogen/Creatinine [Mass ratio] 14 mg/mg Normal [facility] Comment on above: Performed By: #### Rod BLOOM CHM7 ####[facility] (DEFAULT)[address] [place] [address] GLUCOSE POCon 09-11-2023 Glucose [Mass/Vol] 108 mg/dL High 70 - 99 mg/dL [facility] Interpretation and review of laboratory results Abnormal [facility] POC Sample Type CAPBL [facility] Legionella sp identified Org specific cx Nom (Unsp spec)on 09-11-2023 Bacteria identified Cx Nom (Unsp spec) NO GROWTH DAY 7 OF 7 [facility] MAGNESIUMon 09-11-2023 Interpretation and review of laboratory results Normal [facility] Magnesium [Mass/Vol] 1.6 mg/dL 1.6 - 2 .6 mg/dL [facility] Magnesium [Mass/Vol] 1.6 mg/dL Normal 1.6-2.6 [facility] Comment on above: Performed By: #### Rod BLOOM CHM7 ####[facility] (DEFAULT)[address] [place] [address] No Panel Informationon 09-11 [facility] TACROLIMUS LEVEL, TROUGH (UT E DRUG LEVEL)on 09-11-2023 Interpretation and review of laboratory results Normal [facility] Tacrolimus (Bld) [Mass/Vol] 11.5 ng/mL [facility] Tacrolimus, Trough 11.5 ng/mL Normal Bone Susana ow Transplant: 4.0-12.0, Therapeutic: 5.0-15.0 [facility] Comment on above: Order Comment: Dilan gregory draw at specified interval PRIOR to dose. Do not hold dose to wait for level. Specimens batched twice per day, (M-F) and once per day weekendsMethod performed is a chemiluminescent microparticle immunoasssay on the [employer] i2000.The range is based on experience at [facility] and users should be aware that target concentrations vary widely depending on concomitant therapy, time post-transplant, and desired degree of immunosuppression. Performed By: #### T ACRO ####[facility] (DEFAULT)[address] [place] [address] CBC,PLATELETSon 09-10-2023 Erythrocyte distribution width (RBC) [Ratio] [...] [facility] RBC (Bld) [#/Vol] 4.65 10*6/uL [facility] WBC (Bld) [#/Vol] 6.52 10*3/uL 3.73 - 10. 10 K/uL [facility] Hematocrit (Bld) [Volume fraction] 40.0 % Normal 39.6-48.8 [facility] Comment on above: Performed By: #### H EMOGC ####[facility] (DEFAULT)[address] [facility] [place] [place] [address] Hemoglobin (Bld) [Mass/Vol] 12.7 g/dL Low 13.4-16.8 [facility] Comment on above: Performed By: #### H EMOGC ####[facility] (DEFAULT)[address] [facility] [place] [address] MCV (RBC) [Entitic vol] 86.0 fL Normal 79.0-94.5 [facility] Comment on above: Performed By: #### H EMOGC ####[facility] (DEFAULT)[address] [facility] [place] [address] Mean Cell Hgb 27.3 pg Normal 26.1-33.3 [facility] Comment on above: Performed By: #### H EMOGC ####[facility] (DEFAULT)[address] [facility] [place] [address] Mean Cell Hgb Conc 31.8 g/dL Low 31.9-36.5 [facility] Comment on above: Performed By: #### H EMOGC ####[facility] (DEFAULT)[address] [facility] [place] [place] [address] Platelet mean volume (Bld) [Entitic vol] 9.5 fL Normal 8.7-12.3 [facility] Comment on above: Performed By: #### H EMOGC ####[facility] (DEFAULT)[address] [facility] [place] [place] [address] Platelets (Bld) [#/Vol] 225 10*3/uL Normal 146-337 [facility] Comment on above: Performed By: #### H EMOGC ####[facility] (DEFAULT)[address] [place] [address] RBC (Bld) [#/Vol] 4.65 10*6/uL Normal 4.38-5.83 [facility] Comment on above: Performed By: #### [place] [facility] [place] ####[facility] (DEFAULT)[address] [place] [address] RBC Distribution 13.9 % Normal 10.9-14.3 [facility] Comment on above: Performed By: #### [place] [facility] [place] ####[facility] (DEFAULT)[address] [place] [address] WBC (Bld) [#/Vol] 6.52 10*3/uL Normal 3.73-10.10 [facility] Comment on above: Performed By: #### [place] [facility] [place] ####[facility] (DEFAULT)[address] [place] [address] CHEM 7 (LYTES,BUN,CREA,GLUC) on 09-10-2023 Anion gap [Moles/Vol] 13 mmol/L 7 - 17 mmol/L [facility] Chloride [Moles/Vol] 111 mmol/L High 98 - 10 8 mmol/L [facility] CO2 [Moles/Vol] 20 mmol/L Low 21 - 31 mmol/L [facility] Creatinine [Mass/Vol] 1.27 mg/dL 0.70 - 1.30 mg/dL [facility] eGFR, CKD-EPI, Male 68 - [facility]F [facility] Glucose [Mass/Vol] 100 mg/dL High 70 - 99 mg/dL [facility] Osmolality Calc [facility]olality] [facility] Potassium [Moles/Vol] 4.4 mmol/L 3.5 - 5.0 mmol/L [facility] Sodium [Moles/Vol] 140 mmol/L 135 - 145 mmol/L [facility] Urea nitrogen [Mass/Vol] 12 mg/dL 7 - 25 mg[facility] Urea nitrogen/Creatinine [Mass ratio] 9 mg/mg [facility] Anion gap [Moles/Vol] 13 mmol/L Normal 7-17 [facility] Comment on above: Performed By: #### NATHANIEL RAMÍREZ, HFP ####[facility] (DEFAULT)[address] [place] [address] Chloride [Moles/Vol] 111 mmol/L High 98-108 [facility] Comment on above: Performed By: #### NATHANIEL RAMÍREZ, HFP ####[facility] (DEFAULT)[address] [facility] [place] [place] [address] CO2 [Moles/Vol] 20 mmol/L Low 21-31 [facility] Comment on above: Performed By: #### NATHANIEL RAMÍREZ, HFP ####[facility] (DEFAULT)[address] [facility] [place] [address] Creatinine [Mass/Vol] 1.27 mg/dL Normal 0.70-1.30 [facility] Comment on above: Performed By: #### NATHANIEL RAMÍREZ, HFP ####[facility] (DEFAULT)[address] [facility] [place] [address] GFR/1.73 sq M.predicted among non-blacks MDRD (S/P/Bld) [Vol rate/Area] 68 mL/min/{1.73_m2} Normal >=60 [facility] Comment on above: Result Comment: Repo rted eGFR is based on the CKD-EPI 2020 equation using creatinine, age, and sex. Performed By: #### NATHANIEL RAMÍREZ, HFP ####[facility] (DEFAULT)[address] [facility] [place] [address] Glucose [Mass/Vol] 100 mg/dL High 70-99 [facility] Comment on above: Performed By: #### NATHANIEL RAMÍREZ, HFP ####[facility] (DEFAULT)[address] [facility] [place] [address] Osmolality [Osmolality] 293 mosm/kg Normal 278-305 [facility] Comment on above: Performed By: #### M TJ BLOOM7, HFP ####[facility] (DEFAULT)[address] [place] [address] Potassium [Moles/Vol] 4.4 mmol/L Normal 3.5-5.0 [facility] Comment on above: Performed By: #### Rod BLOOM CHM7, HFP ####[facility] (DEFAULT)[address] [place] [address] Sodium [Moles/Vol] 140 mmol/L Normal 135-145 [facility] Comment on above: Performed By: #### NATHANIEL RAMÍREZ, HFP ####[facility] (DEFAULT)[address] [place] [address] Urea nitrogen [Mass/Vol] 12 mg/dL Normal 7-25 [facility] Comment on above: Performed By: #### NATHANIEL RAMÍREZ, HFP ####[facility] (DEFAULT)[address] [place] [address] Urea nitrogen/Creatinine [Mass ratio] 9 mg/mg Normal [facility] Comment on above: Performed By: #### NATHANIEL RAÍMREZ, HFP ####[facility] (DEFAULT)[address] [place] [address] HEPATIC FUNCTION PANELon Albumin [Mass/Vol] 3.3 g/dL [...] [Mass/Vol] 0.9 mg/dL NINF - 1.5 mg/dL [facility] Bilirubin.direct [Mass/Vol] 0.2 mg/dL NINF - 0.3 mg/dL [facility] Protein [Mass/Vol] 6.8 g/dL 6.4 - 8.3 g/dL [facility] Albumin [Mass/Vol] 3.3 g/dL Low 3.5-5.0 [facility] Comment on above: Performed By: #### M MERLE CHM7, HFP ####[facility] (DEFAULT)[address] [place] [address] ALP [Catalytic activity/Vol] 143 U/L High 32-126 [facility] Comment on above: Performed By: #### M MEREL CHM7, HFP ####[facility] (DEFAULT)[address] [place] [address] ALT [Catalytic activity/Vol] 28 U/L Normal 10-52 [facility] Comment on above: Performed By: #### M MERLE CHM7, HFP ####[facility] (DEFAULT)[address] [place] [address] AST [Catalytic activity/Vol] 29 U/L Normal 10-39 [facility] Comment on above: Performed By: #### M MERLE CHM7, HFP ####[facility] (DEFAULT)[address] [place] [address] Bilirubin [Mass/Vol] 0.9 mg/dL Normal <1.5 [facility] Comment on above: Performed By: #### M MERLE CHM7, HFP ####[facility] (DEFAULT)[address] [place] [address] Bilirubin.indirect [Mass/Vol] 0.2 mg/dL Normal <0.3 [facility] Comment on above: Performed By: #### M MERLE CHM7, HFP ####[facility] (DEFAULT)[address] [place] [address] Protein [Mass/Vol] 6.8 g/dL Normal 6.4-8.3 [facility] Comment on above: Performed By: #### M MERLE CHM7, HFP ####[facility] (DEFAULT)[address] [place] [address] MAGNESIUMon 09-10-2023 Interpretation and review of laboratory results Normal [facility] Magnesium [Mass/Vol] 1.9 mg/dL 1.6 - 2 .6 mg/dL [facility] Magnesium [Mass/Vol] 1.9 mg/dL Normal 1.6-2.6 [facility] Comment on above: Performed By: #### M GO, CHM7, HFP ####[facility] (DEFAULT)[address] [place] [address] No Panel Informationon 09-10 Interpretation and review of laboratory results Abnormal [facility] TACROLIMUS LEVEL, TROUGH (UT E DRUG LEVEL)Ordered By: Jimy Castillo on 09-10-2023 Interpretation and review of laboratory results Normal [facility] Tacrolimus (Bld) [Mass/Vol] 11.8 ng/mL [facility] TACROLIMUS LEVEL, TROUGH (UT E DRUG LEVEL)on 09-10-2023 Tacrolimus, Trough 11.8 ng/mL Normal Bone Susana ow Transplant: 4.0-12.0, Therapeutic: 5.0-15.0 [facility] Comment on above: Order Comment: Pleas e draw at specified interval PRIOR to dose. Do not hold dose to wait for level. Specimens batched twice per day, (M-) and once per day weekendsMethod performed is a chemiluminescent microparticle immunoasssay on the [employer] i2000.The range is based on experience at [facility] and users should be aware that target concentrations vary widely depending on concomitant therapy, time post-transplant, and desired degree of immunosuppression. Performed By: #### T ACRO ####[facility] (DEFAULT)[address] [place] [address] CHEM 7 (LYTES,BUN,CREA,GLUC) on 09-09-2023 Anion gap [Moles/Vol] 14 mmol/L 7 - 17 mmol/L [facility] Chloride [Moles/Vol] 113 mmol/L High 98 - 10 8 mmol/L [facility] CO2 [Moles/Vol] 18 mmol/L Low 21 - 31 mmol/L [facility] Creatinine [Mass/Vol] 1.03 mg/dL 0.70 - 1.30 mg/dL [facility] eGFR, CKD-EPI, Male 87 - PINF [facility] Glucose [Mass/Vol] 106 mg/dL High 70 [...] ratio] 10 mg/mg [facility] Anion gap [Moles/Vol] 14 mmol/L Normal 7-17 [facility] Comment on above: Performed By: #### NATHANIEL RAMÍREZ, IPB ####[facility] (DEFAULT)[address] [place] [address] Chloride [Moles/Vol] 113 mmol/L High 98-108 [facility] Comment on above: Performed By: #### NATHANIEL RAMÍREZ, IPB ####[facility] (DEFAULT)[address] [place] [address] CO2 [Moles/Vol] 18 mmol/L Low 21-31 [facility] Comment on above: Performed By: #### NATHANIEL RAMÍREZ, IPB ####[facility] (DEFAULT)[address] [place] [address] Creatinine [Mass/Vol] 1.03 mg/dL Normal 0.70-1.30 [facility] Comment on above: Performed By: #### NATHANIEL RAMÍREZ, IPB ####[facility] (DEFAULT)[address] [place] [address] GFR/1.73 sq M.predicted among non-blacks MDRD (S/P/Bld) [Vol rate/Area] 87 mL/min/{1.73_m2} Normal >=60 [facility] Comment on above: Result Comment: Repo rted eGFR is based on the CKD-EPI 2020 equation using creatinine, age, and sex. Performed By: #### NATHANIEL RAMÍREZ, IPB ####[facility] (DEFAULT)[address] [facility] [place] [place] [address] Glucose [Mass/Vol] 106 mg/dL High 70-99 [facility] Comment on above: Performed By: #### NATHANIEL RAMÍREZ, IPB ####[facility] (DEFAULT)[address] [facility] [place] [address] Osmolality [Osmolality] 294 mosm/kg Normal 278-305 [facility] Comment on above: Performed By: #### NATHANIEL RAMÍREZ, IPB ####[facility] (DEFAULT)[address] [place] [address] Potassium [Moles/Vol] 4.0 mmol/L Normal 3.5-5.0 [facility] Comment on above: Performed By: #### NATHANIEL RAMÍREZ, IPB ####[facility] (DEFAULT)[address] [place] [address] Sodium [Moles/Vol] 141 mmol/L Normal 135-145 [facility] Comment on above: Performed By: #### NATHANIEL RAMÍREZ, IPB ####[facility] (DEFAULT)[address] [facility] [place] [place] [address] Urea nitrogen [Mass/Vol] 10 mg/dL Normal 7-25 [facility] Comment on above: Performed By: #### NATHANIEL RAMÍREZ, IPB ####[facility] (DEFAULT)[address] [place] [address] Urea nitrogen/Creatinine [Mass ratio] 10 mg/mg Normal [facility] Comment on above: Performed By: #### NATHANIEL RAMÍREZ, JO ANN ####[facility] (DEFAULT)[address] [place] [address] MAGNESIUMon 09-09-2023 Magnesium [Mass/Vol] 1.6 mg/dL 1.6 - 2 .6 mg/dL [facility] [facility] Magnesium [Mass/Vol] 1.6 mg/dL Normal 1.6-2.6 [facility] Comment on above: Performed By: #### NATHANIEL RAMÍREZ, JO ANN ####[facility] (DEFAULT)[address] [place] [address] No Panel Informationon 09-09 Interpretation and review of laboratory results Normal [facility] PHOSPHATE, INORGANICon 09-09 Phosphate [Mass/Vol] 3.8 mg/dL 2.2 - 4 .6 mg/dL [facility] Phosphorous 3.8 mg/dL Normal 2.2-4.6 [facility] Comment on above: Performed By: #### NATHANIEL RAMÍREZ, JO ANN ####[facility] (DEFAULT)[address] [place] [address] TACROLIMUS LEVEL, TROUGH (UT E DRUG LEVEL)on 09-09-2023 Interpretation and review of laboratory results Normal [facility] Tacrolimus (Bld) [Mass/Vol] 9.2 ng/mL [facility] Tacrolimus, Trough 9.2 ng/mL Normal Bone Susana ow Transplant: 4.0-12.0, Therapeutic: 5.0-15.0 [facility] Comment on above: Order Comment: Pleas e draw at specified interval PRIOR to dose. Do not hold dose to wait for level. Specimens batched twice per day, (M-F) and once per day weekendsMethod performed is a chemiluminescent microparticle immunoasssay on the [employer] i2000.The range is based on experience at [facility] and users should be aware that target concentrations vary widely depending on concomitant therapy, time post-transplant, and desired degree of immunosuppression. Performed By: #### T ACRO ####[facility] (DEFAULT)[address] [place] [address] CBC,PLATELETSon 09-08-2023 Erythrocyte distribution width (RBC) [Ratio] [...] Hospital RBC (Bld) [#/Vol] 4.24 10*6/uL Low [facility] WBC (Bld) [#/Vol] 4.59 10*3/uL 3.73 - 10. 10 K/uL [facility] Hematocrit (Bld) [Volume fraction] 36.1 % Low 39.6-48.8 [facility] Comment on above: Performed By: #### [facility] [place] ####[facility] (DEFAULT)[address] [place] [address] Hemoglobin (Bld) [Mass/Vol] 11.6 g/dL Low 13.4-16.8 [facility] Comment on above: Performed By: #### H EMOGC ####[facility] (DEFAULT)[address] [facility] [place] [address] MCV (RBC) [Entitic vol] 85.1 fL Normal 79.0-94.5 [facility] Comment on above: Performed By: #### H EMOGC ####[facility] (DEFAULT)[address] [facility] [place] [address] Mean Cell Hgb 27.4 pg Normal 26.1-33.3 [facility] Comment on above: Performed By: #### H EMOGC ####[facility] (DEFAULT)[address] [facility] [place] [address] Mean Cell Hgb Conc 32.1 g/dL Normal 31.9-36.5 [facility] Comment on above: Performed By: #### H EMO ####[facility] (DEFAULT)[address] [facility] [place] [address] Platelet mean volume (Bld) [Entitic vol] 9.5 fL Normal 8.7-12.3 [facility] Comment on above: Performed By: #### H EMOGC ####[facility] (DEFAULT)[address] [facility] [place] [address] Platelets (Bld) [#/Vol] 182 10*3/uL Normal 146-337 [facility] Comment on above: Performed By: #### H EMOGC ####[facility] (DEFAULT)[address] [facility] [place] [address] RBC (Bld) [#/Vol] 4.24 10*6/uL Low 4.38-5.83 [facility] Comment on above: Performed By: #### H EMOGC ####[facility] (DEFAULT)[address] [facility] [place] [address] RBC Distribution 13.6 % Normal 10.9-14.3 [facility] Comment on above: Performed By: #### [facility] [place] ####[facility] (DEFAULT)[address] [place] [address] WBC (Bld) [#/Vol] 4.59 10*3/uL Normal 3.73-10.10 [facility] Comment on above: Performed By: #### [facility] [place] ####[facility] (DEFAULT)[address] [place] [address] CHEM 7 (LYTES,BUN,CREA,GLUC) on 09-08-2023 Anion gap [Moles/Vol] 12 mmol/L 7 - 17 mmol/L [facility] Chloride [Moles/Vol] 113 mmol/L High 98 - 10 8 mmol/L [facility] CO2 [Moles/Vol] 21 mmol/L 21 - 31 mmol/L [facility] Creatinine [Mass/Vol] 1.14 mg/dL 0.70 - 1.30 mg/dL [facility] eGFR, CKD-EPI, Male 77 - [facility]F [facility] Glucose [Mass/Vol] 107 mg/dL High 70 - 99 mg/dL [facility] Osmolality Calc [Osmolality] 296 [facility] Potassium [Moles/Vol] 3.9 mmol/L 3.5 - 5.0 mmol/L [facility] Sodium [Moles/Vol] 142 mmol/L 135 - 145 mmol/L [facility] Urea nitrogen [Mass/Vol] 11 mg/dL 7 - 25 mg/dL [facility] Urea nitrogen/Creatinine [Mass ratio] 10 mg/mg [facility] Anion gap [Moles/Vol] 12 mmol/L Normal 7-17 [facility] Comment on above: Performed By: #### M NATHANIEL BLOOM, TAVO, IPB ####[facility] (DEFAULT)[address] [place] [address] Chloride [Moles/Vol] 113 mmol/L High 98-108 [facility] Comment on above: Performed By: #### M GO, CHM7, HFP, IPB ####[facility] (DEFAULT)[address] [place] [address] CO2 [Moles/Vol] 21 mmol/L Normal 21-31 [facility] Comment on above: Performed By: #### M GO, CHM7, HFP, IPB ####[facility] (DEFAULT)[address] [place] [address] Creatinine [Mass/Vol] 1.14 mg/dL Normal 0.70-1.30 [facility] Comment on above: Performed By: #### M GO, CHM7, HFP, IPB ####[facility] (DEFAULT)[address] [place] [address], [place] [address] GFR/1.73 sq M.predicted among non-blacks MDRD (S/P/Bld) [Vol rate/Area] 77 mL/min/{1.73_m2} Normal >=60 [facility] Comment on above: Result Comment: Repo rted eGFR is based on the CKD-EPI 2020 equation using creatinine, age, and sex. Performed By: #### M MERLE CHM7, HFP, IPB ####[facility] (DEFAULT)[address] [facility] [place] [address] Glucose [Mass/Vol] 107 mg/dL High 70-99 [facility] Comment on above: Performed By: #### M MERLE, CHM7, HFP, IPB ####[facility] (DEFAULT)[address] [facility] [place] [address] Osmolality [Osmolality] 296 mosm/kg Normal 278-305 [facility] Comment on above: Performed By: #### M GO, CHM7, HFP, IPB ####[facility] (DEFAULT)[address] [facility] [place] [address] Potassium [Moles/Vol] 3.9 mmol/L Normal 3.5-5.0 [facility] Comment on above: Performed By: #### M GO, CHM7, HFP, IPB ####[facility] (DEFAULT)[address] [place] [address] Sodium [Moles/Vol] 142 mmol/L Normal 135-145 [facility] Comment on above: Performed By: #### M GO, CHM7, HFP, IPB ####[facility] (DEFAULT)[address] [place] [address] Urea nitrogen [Mass/Vol] 11 mg/dL Normal 7-25 [facility] Comment on above: Performed By: #### M GO, CHM7, HFP, IPB ####[facility] (DEFAULT)[address] [place] [address] Urea nitrogen/Creatinine [Mass ratio] 10 mg/mg Normal [facility] Comment on above: Performed By: #### M GO, CHM7, HFP, IPB ####[facility] (DEFAULT)[address] [place] [address] HEPATIC FUNCTION PANELon Albumin [Mass/Vol] 2.9 g/dL Low 3.5 - 5.0 g/dL [facility] ALP [Catalytic activity/Vol] 133 U/L High 32 - 126 U/L [facility] ALT [Catalytic activity/Vol] 23 U/L 10 - 52 U/L [facility] AST [Catalytic activity/Vol] 23 U/L 10 - 39 U/L [facility] Bilirubin [Mass/Vol] 0.8 mg/dL [facility] - 1.5 mg/dL [facility] Bilirubin.direct [Mass/Vol] 0.2 mg/dL NINF - 0.3 mg/dL [facility] Protein [Mass/Vol] 5.9 g/dL Low 6.4 - 8.3 g/dL [facility] Albumin [Mass/Vol] 2.9 g/dL Low 3.5-5.0 [facility] Comment on above: Performed By: #### M GO, CHM7, HFP, IPB ####[facility] (DEFAULT)[address] [place] [address] ALP [Catalytic activity/Vol] 133 U/L High 32-126 [facility] Comment on above: Performed By: #### M GO, CHM7, HFP, IPB ####[facility] (DEFAULT)[address] [place] [address] ALT [Catalytic activity/Vol] 23 U/L Normal 10-52 [facility] Comment on above: Performed By: #### M MERLE, CHM7, HFP, IPB ####[facility] (DEFAULT)[address] [place] [address] AST [Catalytic activity/Vol] 23 U/L Normal 10-39 [facility] Comment on above: Performed By: #### M MERLE, CHM7, HFP, IPB ####[facility] (DEFAULT)[address] [place] [address] Bilirubin [Mass/Vol] 0.8 mg/dL Normal <1.5 [facility] Comment on above: Performed By: #### M MERLE, CHM7, HFP, IPB ####[facility] (DEFAULT)[address] [place] [address] Bilirubin.indirect [Mass/Vol] 0.2 mg/dL Normal <0.3 [facility] Comment on above: Performed By: #### M GO, CHM7, HFP, IPB ####[facility] (DEFAULT)[address] [place] [address] Protein [Mass/Vol] 5.9 g/dL Low 6.4-8.3 [facility] Comment on above: Performed By: #### M GO, CHM7, HFP, IPB ####[facility] (DEFAULT)[address] [place] [address] MAGNESIUMon 09-08-2023 Interpretation and review of laboratory results Normal [facility] Magnesium [Mass/Vol] 1.8 mg/dL 1.6 - 2 .6 mg/dL [facility] Magnesium [Mass/Vol] 1.8 mg/dL Normal 1.6-2.6 [facility] Comment on above: Performed By: #### M NATHANIEL BLOOM, TAVO, IPB ####[facility] (DEFAULT)[address] [place] [address] No Panel Informationon 09-08 Interpretation and review of laboratory results Abnormal [facility] PHOSPHATE, INORGANICon 09-08 Interpretation and review of laboratory results Normal [facility] Phosphate [Mass/Vol] 4.1 mg/dL 2.2 - 4 .6 mg/dL [facility] Phosphorous 4.1 mg/dL Normal 2.2-4.6 [facility] Comment on above: Performed By: #### M NATHANIEL BLOOM, TAVO, IPB ####[facility] (DEFAULT)[address] [place] [address] TACROLIMUS LEVEL, TROUGH (UT E DRUG LEVEL)on 09-08-2023 Interpretation and review of laboratory results Normal [facility] Tacrolimus (Bld) [Mass/Vol] 8.5 ng/mL [facility] Tacrolimus, Trough 8.5 ng/mL Normal Bone Susana ow Transplant: 4.0-12.0, Therapeutic: 5.0-15.0 [facility] Comment on above: Order Comment: Pleas e draw at specified interval PRIOR to dose. Do not hold dose to wait for level. Specimens batched twice per day, (M-F) and once per day weekendsMethod performed is a chemiluminescent microparticle immunoasssay on the [employer] i2000.The range is based on experience at [facility] and users should be aware that target concentrations vary widely depending on concomitant therapy, time post-transplant, and desired degree of immunosuppression. Performed By: #### T ACRO ####[facility] (DEFAULT)[address] [place] [address] [place] [address] CBC,PLATELETSon 09-07-2023 Erythrocyte distribution width (RBC) [Ratio] [...] Hospital RBC (Bld) [#/Vol] 4.29 10*6/uL Low [facility] WBC (Bld) [#/Vol] 4.10 10*3/uL 3.73 - 10. 10 K/uL [facility] Hematocrit (Bld) [Volume fraction] 37.1 % Low 39.6-48.8 [facility] Comment on above: Performed By: #### [facility] [place] ####[facility] (DEFAULT)[address] [place] [address] Hemoglobin (Bld) [Mass/Vol] 11.9 g/dL Low 13.4-16.8 [facility] Comment on above: Performed By: #### [facility] [place] ####[facility] (DEFAULT)[address] [place] [address] MCV (RBC) [Entitic vol] 86.5 fL Normal 79.0-94.5 [facility] Comment on above: Performed By: #### H EMOGC ####[facility] (DEFAULT)[address] [place] [address] Mean Cell Hgb 27.7 pg Normal 26.1-33.3 [facility] Comment on above: Performed By: #### H EMOGC ####[facility] (DEFAULT)[address] [place] [address] Mean Cell Hgb Conc 32.1 g/dL Normal 31.9-36.5 [facility] Comment on above: Performed By: #### H EMOGC ####[facility] (DEFAULT)[address] [place] [address] Platelet mean volume (Bld) [Entitic vol] 9.6 fL Normal 8.7-12.3 [facility] Comment on above: Performed By: #### H EMOGC ####[facility] (DEFAULT)[address] [place] [address] Platelets (Bld) [#/Vol] 176 10*3/uL Normal 146-337 [facility] Comment on above: Performed By: #### H EMOGC ####[facility] (DEFAULT)[address] [place] [address] RBC (Bld) [#/Vol] 4.29 10*6/uL Low 4.38-5.83 [facility] Comment on above: Performed By: #### H EMOGC ####[facility] (DEFAULT)[address] [place] [address] RBC Distribution 13.5 % Normal 10.9-14.3 [facility] Comment on above: Performed By: #### H EMOGC ####[facility] (DEFAULT)[address] [place] [address] WBC (Bld) [#/Vol] 4.10 10*3/uL Normal 3.73-10.10 [facility] Comment on above: Performed By: #### [facility] [place] ####[facility] (DEFAULT)[address] [place] [address] CHEM 7 (LYTES,BUN,CREA,GLUC) on 09-07-2023 Anion gap [Moles/Vol] 13 mmol/L 7 - 17 mmol/L [facility] Chloride [Moles/Vol] 113 mmol/L High 98 - 10 8 mmol/L [facility] CO2 [Moles/Vol] 19 mmol/L Low 21 - 31 mmol/L [facility] Creatinine [Mass/Vol] 1.22 mg/dL 0.70 - 1.30 mg/dL [facility] eGFR, CKD-EPI, Male 71 - PINF [facility] Glucose [Mass/Vol] 107 mg/dL High 70 - 99 mg/dL [facility] Osmolality Calc [Osmolality] 295 [facility] Potassium [Moles/Vol] 3.9 mmol/L 3.5 - 5.0 mmol/L [facility] Sodium [Moles/Vol] 141 mmol/L 135 - 145 mmol/L [facility] Urea nitrogen [Mass/Vol] 13 mg/dL 7 - 25 mg/dL [facility] Urea nitrogen/Creatinine [Mass ratio] 11 mg/mg [facility] Anion gap [Moles/Vol] 13 mmol/L Normal 7-17 [facility] Comment on above: Performed By: #### M NATHANIEL BLOOM, TAVO, IPB ####[facility] (DEFAULT)[address] [place] [address] Chloride [Moles/Vol] 113 mmol/L High 98-108 [facility] Comment on above: Performed By: #### M NATHANIEL BLOOM, HFP, IPB ####[facility] (DEFAULT)[address] [place] [address] CO2 [Moles/Vol] 19 mmol/L Low 21-31 [facility] Comment on above: Performed By: #### M HELEN BLOOMM7, HFP, IPB ####[facility] (DEFAULT)[address] [place] [address] Creatinine [Mass/Vol] 1.22 mg/dL Normal 0.70-1.30 [facility] Comment on above: Performed By: #### M HELEN BLOOMM7, HFP, IPB ####[facility] (DEFAULT)[address] [facility] [place] [address] GFR/1.73 sq M.predicted among non-blacks MDRD (S/P/Bld) [Vol rate/Area] 71 mL/min/{1.73_m2} Normal >=60 [facility] Comment on above: Result Comment: Repo rted eGFR is based on the CKD-EPI 2020 equation using creatinine, age, and sex. Performed By: #### M HELEN BLOOMM7, HFP, IPB ####[facility] (DEFAULT)[address] [facility] [place] [address] Glucose [Mass/Vol] 107 mg/dL High 70-99 [facility] Comment on above: Performed By: #### Rod BLOOM CHMJessica, HFP, IPB ####[facility] (DEFAULT)[address] [facility] [place] [place] [address] Osmolality [Osmolality] 295 mosm/kg Normal 278-305 [facility] Comment on above: Performed By: #### Rod BLOOM CHM7, HFP, IPB ####[facility] (DEFAULT)[address] [facility] [place] [place] [address] Potassium [Moles/Vol] 3.9 mmol/L Normal 3.5-5.0 [facility] Comment on above: Performed By: #### Rod BLOOM CHM7, HFP, IPB ####[facility] (DEFAULT)[address] [place] [address] Sodium [Moles/Vol] 141 mmol/L Normal 135-145 [facility] Comment on above: Performed By: #### TJ RAMÍREZ7, HFP, IPB ####[facility] (DEFAULT)[address] [place] [address] Urea nitrogen [Mass/Vol] 13 mg/dL Normal 7-25 [facility] Comment on above: Performed By: #### M GO, CHM7, HFP, IPB ####[facility] (DEFAULT)[address] [place] [address] Urea nitrogen/Creatinine [Mass ratio] 11 mg/mg Normal [facility] Comment on above: Performed By: #### M GO, CHM7, HFP, IPB ####[facility] (DEFAULT)[address] [place] [address] HEPATIC FUNCTION PANELon Albumin [Mass/Vol] 2.9 g/dL [...] g/dL [facility] Albumin [Mass/Vol] 2.9 g/dL Low 3.5-5.0 [facility] Comment on above: Performed By: #### M GO, CHM7, HFP, IPB ####[facility] (DEFAULT)[address] [place] [address] ALP [Catalytic activity/Vol] 111 U/L Normal 32-126 [facility] Comment on above: Performed By: #### M GO, CHM7, HFP, IPB ####[facility] (DEFAULT)[address] [place] [address] ALT [Catalytic activity/Vol] 18 U/L Normal 10-52 [facility] Comment on above: Performed By: #### M GO, CHM7, HFP, IPB ####[facility] (DEFAULT)[address] [place] [address] AST [Catalytic activity/Vol] 23 U/L Normal 10-39 [facility] Comment on above: Performed By: #### M GO, CHM7, HFP, IPB ####[facility] (DEFAULT)[address] [place] [address] Bilirubin [Mass/Vol] 0.8 mg/dL Normal <1.5 [facility] Comment on above: Performed By: #### M GO, CHM7, HFP, IPB ####[facility] (DEFAULT)[address] [place] [address] Bilirubin.indirect [Mass/Vol] 0.3 mg/dL High <0.3 [facility] Comment on above: Performed By: #### M GO, CHM7, HFP, IPB ####[facility] (DEFAULT)[address] [place] [address] Protein [Mass/Vol] 6.0 g/dL Low 6.4-8.3 [facility] Comment on above: Performed By: #### M GO, CHM7, HFP, IPB ####[facility] (DEFAULT)[address] [place] [address] MAGNESIUMon 09-07-2023 Interpretation and review of laboratory results Normal [facility] Magnesium [Mass/Vol] 1.7 mg/dL 1.6 - 2 .6 mg/dL [facility] Magnesium [Mass/Vol] 1.7 mg/dL Normal 1.6-2.6 [facility] Comment on above: Performed By: #### M GO, CHM7, HFP, IPB ####[facility] (DEFAULT)[address] [place] [address] No Panel Informationon 09-07 Interpretation and review of laboratory results Abnormal [facility] PHOSPHATE, INORGANICon 09-07 Interpretation and review of laboratory results Normal [facility] Phosphate [Mass/Vol] 4.4 mg/dL 2.2 - 4 .6 mg/dL [facility] Phosphorous 4.4 mg/dL Normal 2.2-4.6 [facility] Comment on above: Performed By: #### M NATHANIEL BLOOM, TAVO, IPB ####[facility] (DEFAULT)[address] [place] [address] TACROLIMUS LEVEL, TROUGH (UT E DRUG LEVEL)Ordered By: Elizabeth Maldonado on 09-07-2023 Interpretation and review of laboratory results Normal [facility] Tacrolimus (Bld) [Mass/Vol] 7.8 ng/mL [facility] TACROLIMUS LEVEL, TROUGH (UT E DRUG LEVEL)on 09-07-2023 Tacrolimus, Trough 7.8 ng/mL Normal Bone Susana ow Transplant: 4.0-12.0, Therapeutic: 5.0-15.0 [facility] Comment on above: Order Comment: Pleas e draw at specified interval PRIOR to dose. Do not hold dose to wait for level. Specimens batched twice per day, (M-F) and once per day weekendsMethod performed is a chemiluminescent microparticle immunoasssay on the [employer] i2000.The range is based on experience at [facility] and users should be aware that target concentrations vary widely depending on concomitant therapy, time post-transplant, and desired degree of immunosuppression. Performed By: #### T ACRO ####[facility] (DEFAULT)[address] [place] [address] CBC,PLATELETSon 09-06-2023 Erythrocyte distribution width (RBC) [Ratio] [...] [facility] RBC (Bld) [#/Vol] 4.47 10*6/uL [facility] WBC (Bld) [#/Vol] 4.41 10*3/uL 3.73 - 10. 10 K/uL [facility] Hematocrit (Bld) [Volume fraction] 38.4 % Low 39.6-48.8 [facility] Comment on above: Performed By: #### [facility] [place] ####[facility] (DEFAULT)[address] [place] [address] Hemoglobin (Bld) [Mass/Vol] 11.9 g/dL Low 13.4-16.8 [facility] Comment on above: Performed By: #### [facility] [place] ####[facility] (DEFAULT)[address] [place] [address] MCV (RBC) [Entitic vol] 85.9 fL Normal 79.0-94.5 [facility] Comment on above: Performed By: #### [facility] [place] ####[facility] (DEFAULT)[address] [facility] [place] [address] Mean Cell Hgb 26.6 pg Normal 26.1-33.3 [facility] Comment on above: Performed By: #### H EMOGC ####[facility] (DEFAULT)[address] [place] [address] Mean Cell Hgb Conc 31.0 g/dL Low 31.9-36.5 [facility] Comment on above: Performed By: #### H EMOGC ####[facility] (DEFAULT)[address] [facility] [place] [address] Platelet mean volume (Bld) [Entitic vol] 9.7 fL Normal 8.7-12.3 [facility] Comment on above: Performed By: #### H EMOGC ####[facility] (DEFAULT)[address] [facility] [place] [address] Platelets (Bld) [#/Vol] 181 10*3/uL Normal 146-337 [facility] Comment on above: Performed By: #### H EMOGC ####[facility] (DEFAULT)[address] [facility] [place] [address] RBC (Bld) [#/Vol] 4.47 10*6/uL Normal 4.38-5.83 [facility] Comment on above: Performed By: #### H EMOGC ####[facility] (DEFAULT)[address] [facility] [place] [address] RBC Distribution 13.4 % Normal 10.9-14.3 [facility] Comment on above: Performed By: #### H EMOGC ####[facility] (DEFAULT)[address] [facility] [place] [address] WBC (Bld) [#/Vol] 4.41 10*3/uL Normal 3.73-10.10 [facility] Comment on above: Performed By: #### H EMOGC ####[facility] (DEFAULT)[address] [facility] [place] [address] CHEM 7 (LYTES,BUN,CREA,GLUC) on 09-06-2023 Anion gap [Moles/Vol] 14 mmol/L 7 - 17 mmol/L [facility] Chloride [Moles/Vol] 109 mmol/L High 98 - 10 8 [facility]/L [facility] CO2 [Moles/Vol] 19 mmol/L Low 21 - 31 mmol/L [facility] Creatinine [Mass/Vol] 1.26 mg/dL 0.70 - 1.30 mg/dL [facility] eGFR, CKD-EPI, Male 69 - [facility] Glucose [Mass/Vol] 114 mg/dL High 70 - 99 mg/dL [facility] Osmolality Calc [Osmolality] 291 [facility] Potassium [Moles/Vol] 4.1 mmol/L 3.5 - 5.0 mmol/L [facility] Sodium [Moles/Vol] 138 mmol/L 135 - 145 mmol/L [facility] Urea nitrogen [Mass/Vol] 16 mg/dL 7 - 25 mg/dL [facility] Urea nitrogen/Creatinine [Mass ratio] 13 mg/mg [facility] Anion gap [Moles/Vol] 14 mmol/L Normal 7-17 [facility] Comment on above: Performed By: #### NATHANIEL RAMÍREZ, HFP ####[facility] (DEFAULT)[address] [place] [address] Chloride [Moles/Vol] 109 mmol/L High 98-108 [facility] Comment on above: Performed By: #### NATHANIEL RAMÍREZ, HFP ####[facility] (DEFAULT)[address] [place] [address] CO2 [Moles/Vol] 19 mmol/L Low 21-31 [facility] Comment on above: Performed By: #### NATHANIEL RAMÍREZ, HFP ####[facility] (DEFAULT)[address] [place] [address] Creatinine [Mass/Vol] 1.26 mg/dL Normal 0.70-1.30 [facility] Comment on above: Performed By: #### NATHANIEL RAMÍREZ, HFP ####[facility] (DEFAULT)[address] [place] [address] GFR/1.73 sq M.predicted among non-blacks MDRD (S/P/Bld) [Vol rate/Area] 69 mL/min/{1.73_m2} Normal >=60 [facility] Comment on above: Result Comment: Repo rted eGFR is based on the CKD-EPI 2020 equation using creatinine, age, and sex. Performed By: #### NATHANIEL RAMÍREZ, HFP ####[facility] (DEFAULT)[address] [place] [address] Glucose [Mass/Vol] 114 mg/dL High 70-99 [facility] Comment on above: Performed By: #### NATHANIEL RAMÍREZ, HFP ####[facility] (DEFAULT)[address] [place] [address] Osmolality [Osmolality] 291 mosm/kg Normal 278-305 [facility] Comment on above: Performed By: #### NATHANIEL RAMÍREZ, HFP ####[facility] (DEFAULT)[address] [place] [address] Potassium [Moles/Vol] 4.1 mmol/L Normal 3.5-5.0 [facility] Comment on above: Performed By: #### NATHANIEL RAMÍREZ, HFP ####[facility] (DEFAULT)[address] [place] [address] Sodium [Moles/Vol] 138 mmol/L Normal 135-145 [facility] Comment on above: Performed By: #### NATHANIEL RAMÍREZ, HFP ####[facility] (DEFAULT)[address] [place] [address] Urea nitrogen [Mass/Vol] 16 mg/dL Normal 7-25 [facility] Comment on above: Performed By: #### NATHANIEL RAMÍREZ, HFP ####[facility] (DEFAULT)[address] [facility] [place] [address] Urea nitrogen/Creatinine [Mass ratio] 13 mg/mg Normal [facility] Comment on above: Performed By: #### NATHANIEL RAMÍREZ, HFP ####[facility] (DEFAULT)[address] [place] [address] HEPATIC FUNCTION PANELon Albumin [Mass/Vol] 3.0 g/dL [...] Hospital Albumin [Mass/Vol] 3.0 g/dL Low 3.5-5.0 [facility] Comment on above: Performed By: #### NATHANIEL RAMÍREZ, HFP ####[facility] (DEFAULT)[address] [facility] [place] [address] ALP [Catalytic activity/Vol] 115 U/L Normal 32-126 [facility] Comment on above: Performed By: #### NATHANIEL RAMÍREZ, HFP ####[facility] (DEFAULT)[address] [facility] [place] [address] ALT [Catalytic activity/Vol] 25 U/L Normal 10-52 [facility] Comment on above: Performed By: #### NATHANIEL RAMÍREZ, HFP ####[facility] (DEFAULT)[address] [facility] [place] [address] AST [Catalytic activity/Vol] 31 U/L Normal 10-39 [facility] Comment on above: Performed By: #### NATHANIEL RAMÍREZ, HFP ####[facility] (DEFAULT)[address] [facility] [place] [address] Bilirubin [Mass/Vol] 1.0 mg/dL Normal <1.5 [facility] Comment on above: Performed By: #### NATHANIEL RAMÍREZ, HFP ####[facility] (DEFAULT)[address] [place] [address] Bilirubin.indirect [Mass/Vol] 0.3 mg/dL High <0.3 [facility] Comment on above: Performed By: #### NATHANIEL RAMÍREZ, HFP ####[facility] (DEFAULT)[address] [place] [address] Protein [Mass/Vol] 6.3 g/dL Low 6.4-8.3 [facility] Comment on above: Performed By: #### NATHANIEL RAMÍREZ, HFP ####[facility] (DEFAULT)[address] [place] [address] MAGNESIUMon 09-06-2023 Interpretation and review of laboratory results Normal [facility] Magnesium [Mass/Vol] 2.0 mg/dL 1.6 - 2 .6 mg/dL [facility] Magnesium [Mass/Vol] 2.0 mg/dL Normal 1.6-2.6 [facility] Comment on above: Performed By: #### NATHANIEL RAMÍREZ, HFP ####[facility] (DEFAULT)[address] [place] [address] No Panel Informationon 09-06 Interpretation and review of laboratory results Abnormal [facility] TACROLIMUS LEVEL, TROUGH (UT E DRUG LEVEL)on 09-06-2023 Interpretation and review of laboratory results Normal [facility] Tacrolimus (Bld) [Mass/Vol] 6.7 ng/mL [facility] Tacrolimus, Trough 6.7 ng/mL Normal Bone Susana ow Transplant: 4.0-12.0, Therapeutic: 5.0-15.0 [facility] Comment on above: Order Comment: Pleas e draw at specified interval PRIOR to dose. Do not hold dose to wait for level. Specimens batched twice per day, (M-F) and once per day weekendsMethod performed is a chemiluminescent microparticle immunoasssay on the [employer] i2000.The range is based on experience at [facility] and users should be aware that target concentrations vary widely depending on concomitant therapy, time post-transplant, and desired degree of immunosuppression. Performed By: #### T ACRO ####[facility] (DEFAULT)[address] [place] [address] CBC,PLATELETSon 09-05-2023 Erythrocyte distribution width (RBC) [Ratio] [...] Hospital RBC (Bld) [#/Vol] 4.14 10*6/uL Low [facility] WBC (Bld) [#/Vol] 4.24 10*3/uL 3.73 - 10. 10 K/uL [facility] Hematocrit (Bld) [Volume fraction] 35.6 % Low 39.6-48.8 [facility] Comment on above: Performed By: #### H EMOGC ####[facility] (DEFAULT)[address] [place] [address] Hemoglobin (Bld) [Mass/Vol] 11.4 g/dL Low 13.4-16.8 [facility] Comment on above: Performed By: #### H EMOGC ####[facility] (DEFAULT)[address] [place] [address] MCV (RBC) [Entitic vol] 86.0 fL Normal 79.0-94.5 [facility] Comment on above: Performed By: #### H EMO ####[facility] (DEFAULT)[address] [facility] [place] [address] Mean Cell Hgb 27.5 pg Normal 26.1-33.3 [facility] Comment on above: Performed By: #### H EMOGC ####[facility] (DEFAULT)[address] [facility] [place] [address] Mean Cell Hgb Conc 32.0 g/dL Normal 31.9-36.5 [facility] Comment on above: Performed By: #### H EMOGC ####[facility] (DEFAULT)[address] [facility] [place] [address] Platelet mean volume (Bld) [Entitic vol] 10.0 fL Normal 8.7-12.3 [facility] Comment on above: Performed By: #### H EMOGC ####[facility] (DEFAULT)[address] [place] [address] Platelets (Bld) [#/Vol] 170 10*3/uL Normal 146-337 [facility] Comment on above: Performed By: #### H EMOGC ####[facility] (DEFAULT)[address] [place] [address] RBC (Bld) [#/Vol] 4.14 10*6/uL Low 4.38-5.83 [facility] Comment on above: Performed By: #### [place] [facility] ####[facility] (DEFAULT)[address] [place] [address] RBC Distribution 13.5 % Normal 10.9-14.3 [facility] Comment on above: Performed By: #### H [facility] [place] ####[facility] (DEFAULT)[address] [place] [address] WBC (Bld) [#/Vol] 4.24 10*3/uL Normal 3.73-10.10 [facility] Comment on above: Performed By: #### [facility] [place] ####[facility] (DEFAULT)[address] [place] [address] CHEM 7 (LYTES,BUN,CREA,GLUC) on 09-05-2023 Anion gap [...] CKD-EPI, Male 60 Low - PINF [facility] Glucose [Mass/Vol] 111 mg/dL High 70 - 99 mg/dL [facility] Osmolality Calc [O[facility]olality] 286 [facility] Potassium [Moles/Vol] 4.2 mmol/L 3.5 - 5.0 mmol/L [facility] Sodium [Moles/Vol] 135 mmol/L 135 - 145 mmol/L [facility] Urea nitrogen [Mass/Vol] 18 mg/dL 7 - 25 mg/dL [facility] Urea nitrogen/Creatinine [Mass ratio] 13 mg/mg [facility] Anion gap [Moles/Vol] 12 mmol/L Normal 7-17 [facility] Comment on above: Performed By: #### M HELEN BLOOMM7, HFP ####[facility] (DEFAULT)[address] [place] [address] Chloride [Moles/Vol] 107 mmol/L Normal 98-108 [facility] Comment on above: Performed By: #### M HELEN BLOOMM7, HFP ####[facility] (DEFAULT)[address] [facility] [place] [address] CO2 [Moles/Vol] 20 mmol/L Low 21-31 [facility] Comment on above: Performed By: #### Rod BLOOM CHM7, HFP ####[facility] (DEFAULT)[address] [place] [address] Creatinine [Mass/Vol] 1.43 mg/dL High 0.70-1.30 [facility] Comment on above: Performed By: #### TJ RAMÍREZ7, HFP ####[facility] (DEFAULT)[address] [place] [address] GFR/1.73 sq M.predicted among non-blacks MDRD (S/P/Bld) [Vol rate/Area] 59 mL/min/{1.73_m2} Low >=60 [facility] Comment on above: Result Comment: Repo rted eGFR is based on the CKD-EPI 2020 equation using creatinine, age, and sex. Performed By: #### M HELEN BLOOMM7, HFP ####[facility] (DEFAULT)[address] [place] [address] Glucose [Mass/Vol] 111 mg/dL High 70-99 [facility] Comment on above: Performed By: #### Rod BLOOM CHM7, HFP ####[facility] (DEFAULT)[address] [facility] [place] [address] Osmolality [Osmolality] 286 mosm/kg Normal 278-305 [facility] Comment on above: Performed By: #### NATHANIEL RMAÍREZ, HFP ####[facility] (DEFAULT)[address] [place] [address] Potassium [Moles/Vol] 4.2 mmol/L Normal 3.5-5.0 [facility] Comment on above: Performed By: #### NATHANIEL RAMÍREZ, HFP ####[facility] (DEFAULT)[address] [place] [address] Sodium [Moles/Vol] 135 mmol/L Normal 135-145 [facility] Comment on above: Performed By: #### NATHANIEL RAMÍREZ, HFP ####[facility] (DEFAULT)[address] [facility] [place] [address] Urea nitrogen [Mass/Vol] 18 mg/dL Normal 7-25 [facility] Comment on above: Performed By: #### NATHANIEL RAMÍREZ, HFP ####[facility] (DEFAULT)[address] [place] [address] Urea nitrogen/Creatinine [Mass ratio] 13 mg/mg Normal [facility] Comment on above: Performed By: #### NATHANIEL RAMÍREZ, HFP ####[facility] (DEFAULT)[address] [facility] [place] [address] CONTINUOUS CARDIAC MONITORIN G STRIPon 09-05-2023 [facility] [...] g/dL [facility] Albumin [Mass/Vol] 2.8 g/dL Low 3.5-5.0 [facility] Comment on above: Performed By: #### M MERLE CHM7, HFP ####[facility] (DEFAULT)[address] [place] [address] ALP [Catalytic activity/Vol] 103 U/L Normal 32-126 [facility] Comment on above: Performed By: #### Rod BLOOM CHM7, HFP ####[facility] (DEFAULT)[address] [place] [address] ALT [Catalytic activity/Vol] 26 U/L Normal 10-52 [facility] Comment on above: Performed By: #### Rod BLOOM CHM7, HFP ####[facility] (DEFAULT)[address] [place] [address] AST [Catalytic activity/Vol] 38 U/L Normal 10-39 [facility] Comment on above: Performed By: #### M MERLE CHM7, HFP ####[facility] (DEFAULT)[address] [place] [address] Bilirubin [Mass/Vol] 0.9 mg/dL Normal <1.5 [facility] Comment on above: Performed By: #### M MERLE CHM7, HFP ####[facility] (DEFAULT)[address] [place] [address] Bilirubin.indirect [Mass/Vol] 0.1 mg/dL Normal <0.3 [facility] Comment on above: Performed By: #### M GO CHM7, HFP ####[facility] (DEFAULT)[address] [place] [address] Protein [Mass/Vol] 6.1 g/dL Low 6.4-8.3 [facility] Comment on above: Performed By: #### NATHANIEL RAMÍREZ, HFP ####[facility] (DEFAULT)[address] [place] [address] HISTOPLASMA ANTIGEN, FLUIDon 09-05-2023 FH SOURCE BAL RML [facility] Histo FLD interpretation Negative [facility] Histoplasma Antigen, FLUID Not detected ng/mL [facility] HISTOPLASMA CAPSULATUM/BLAST OMYCES SPECIES,PCR FLUIDon 09-05-2023 HISTO/BLASTO RESULT Negative Not Applicable [facility] Specimen source Nom (Unsp spec) BAL RML [facility] IMMUNOPHENOTYPING, TISSUE/FL UIDon 09-05-2023 BKR DX CODE Use Ordering [facility] Flow Interpretation See Comment [facility] Flow Interpreted by: Yossi Perla MD, PhD [facility] MAGNESIUMon 09-05-2023 Interpretation and review of laboratory results Normal [facility] Magnesium [Mass/Vol] 1.7 mg/dL 1.6 - 2 .6 mg/dL [facility] Magnesium [Mass/Vol] 1.7 mg/dL Normal 1.6-2.6 [facility] Comment on above: Performed By: #### NATHANIEL RAMÍREZ, HFP ####[facility] (DEFAULT)[address] [place] [address] No Panel Informationon 09-05 Interpretation and review of laboratory results Abnormal [facility] TACROLIMUS LEVEL, TROUGH (UT E DRUG LEVEL)Ordered By: Raymundo Mehta on 09-05-2023 Interpretation and review of laboratory results Normal [facility] Tacrolimus (Bld) [Mass/Vol] 5.3 ng/mL [facility] TACROLIMUS LEVEL, TROUGH (UT E DRUG LEVEL)on 09-05-2023 Tacrolimus, Trough 5.3 ng/mL Normal Bone Susana ow Transplant: 4.0-12.0, Therapeutic: 5.0-15.0 [facility] Comment on above: Order Comment: Pleas e draw at specified interval PRIOR to dose. Do not hold dose to wait for level. Specimens batched twice per day, (M-F) and once per day weekendsMethod performed is a chemiluminescent microparticle immunoasssay on the [employer] i2000.The range is based on experience at [facility] and users should be aware that target concentrations vary widely depending on concomitant therapy, time post-transplant, and desired degree of immunosuppression. Performed By: #### T ACRO ####[facility] (DEFAULT)[address] [place] [address] ARTERIAL BLOOD GAS (FULL GOSS EL)on 09-04-2023 [...] - 98 % [facility] pH (Bld) 7.48 [pH] High 7.35 - 7.45 [facility] Potassium [Moles/Vol] 4.2 mmol/L 3.5 - 5.0 mmol/L [facility] Sodium [Moles/Vol] 130 mmol/L Low 135 - 145 mmol/L [facility] Specimen source Nom (Unsp spec) Arterial [facility] Base Excess -1.2 mmol/L Normal -3.0-3.0 [facility] Comment on above: Performed By: ###Walter UNDERWOOD ####[facility] (DEFAULT)[address] [place] [address] Carboxyhemoglobin 0.7 % Normal <=1.5 [facility] Comment on above: Performed By: ###Walter UNDERWOOD ####[facility] (DEFAULT)[address] [place] [address] Glucose [Mass/Vol] 159 mg/dL High 70-99 [facility] Comment on above: Performed By: ###Walter UNDERWOOD ####[facility] (DEFAULT)[address] [place] [address] HCO3 (Bld) [Moles/Vol] 22 mmol/L Normal 22-28 [facility] Comment on above: Performed By: ###Walter UNDERWOOD ####[facility] (DEFAULT)[address] [place] [address] Hematocrit (Bld) [Volume fraction] 38.0 % Low 40.2-50.4 [facility] Comment on above: Performed By: ###Walter UNDERWOOD ####[facility] (DEFAULT)[address] [place] [address] Hemoglobin (Bld) [Mass/Vol] 12.6 g/dL Low 13.4-16.8 [facility] Comment on above: Performed By: #### Vale ASALL ####[facility] (DEFAULT)[address] [place] [address] Ionized Calcium, Whole Blood 4.79 mg/dL Normal 4.60-5.30 [facility] Comment on above: Performed By: #### G ASALL ####[facility] (DEFAULT)[address] [place] [address] Lactate, Whole Blood 2.0 mmol/L High 0.5-1.6 [facility] Comment on above: Performed By: #### Vale UNDERWOOD ####[facility] (DEFAULT)[address] [facility] [place] [address] Methemoglobin 0.0 % Normal <=1.5 [facility] Comment on above: Performed By: #### Vale ASAASHISH ####[facility] (DEFAULT)[address] [facility] [place] [address] Oxyhemoglobin 91 % Low 94-98 [facility] Comment on above: Performed By: #### Vale UNDERWOOD ####[facility] (DEFAULT)[address] [facility] [place] [address] pCO2 30 mm Hg Low 32-48 [facility] Comment on above: Performed By: #### Vale ASALL ####[facility] (DEFAULT)[address] [place] [address] pH (Bld) 7.48 [pH] High 7.35-7.45 [facility] Comment on above: Performed By: #### G ASALL ####[facility] (DEFAULT)[address] [place] [address] pO2 62 mm Hg Low 83-108 [facility] Comment on above: Performed By: #### Vale ASAASHISH ####[facility] (DEFAULT)[address] [facility] [place] [address] Potassium [Moles/Vol] 4.2 mmol/L Normal 3.5-5.0 [facility] Comment on above: Performed By: #### G ASALL ####[facility] (DEFAULT)[address] [facility] [place] [address] sO2 92 % Low 94-98 [facility] Comment on above: Performed By: #### G ASAASHISH ####[facility] (DEFAULT)[address] [place] [address] Sodium [Moles/Vol] 130 mmol/L Low 135-145 [facility] Comment on above: Performed By: #### G YASMINE ####[facility] (DEFAULT)[address] [place] [address] Specimen type Nom (Spec) Arterial Normal [facility] Comment on above: Performed By: #### G ASALL ####[facility] (DEFAULT)[address] [place] [address] Bacteria identified Respirat ory culture Nom (Unsp spec)on 09-04-2023 Bacteria identified Cx Nom (Unsp spec) NO GROWTH DAY 2 OF 2 [facility] Microscopic observation Other stain Nom (Unsp spec) Cytocentrifuge preparation [facility] Microscopic observation Other stain Nom (Unsp spec) Neutrophils, Rare [facility] Microscopic observation Other stain Nom (Unsp spec) Red Blood Cells Present [facility] Microscopic observation Other stain Nom (Unsp spec) No organisms seen [facility] Bacteria identified Respirat ory culture Nom (Unsp spec)Ordered By: Jose Salgado on 09-04-2023 Bacteria identified Cx Nom (Unsp spec) NO GROWTH DAY 2 [facility] Microscopic [facility] Other stain Nom (Unsp spec) Cytocentrifuge preparation [facility] Microscopic observation Other stain Nom (Unsp spec) Neutrophils, Moderate [facility] Microscopic observation Other stain Nom (Unsp spec) Red Blood Cells Present [facility] Microscopic observation Other stain Nom (Unsp spec) No organisms seen [facility] CBC,PLATELETSon 09-04-2023 Erythrocyte distribution width [...] [facility] RBC (Bld) [#/Vol] 4.41 10*6/uL [facility] WBC (Bld) [#/Vol] 4.57 10*3/uL 3.73 - 10. 10 K/uL [facility] Hematocrit (Bld) [Volume fraction] 38.7 % Low 39.6-48.8 [facility] Comment on above: Performed By: #### [facility] [place] ####[facility] (DEFAULT)[address] [place] [id number] Hemoglobin (Bld) [Mass/Vol] 12.3 g/dL Low 13.4-16.8 [facility] Comment on above: Performed By: #### [facility] [place] ####[facility] (DEFAULT)[address] [facility] [place] [place] [address] MCV (RBC) [Entitic vol] 87.8 fL Normal 79.0-94.5 [facility] Comment on above: Performed By: #### H EMOGC ####[facility] (DEFAULT)[address] [facility] [place] [place] [address] Mean Cell Hgb 27.9 pg Normal 26.1-33.3 [facility] Comment on above: Performed By: #### H EMOGC ####[facility] (DEFAULT)[address] [facility] [place] [address] Mean Cell Hgb Conc 31.8 g/dL Low 31.9-36.5 [facility] Comment on above: Performed By: #### H EMOGC ####[facility] (DEFAULT)[address] [facility] [place] [address] Platelet mean volume (Bld) [Entitic vol] 9.8 fL Normal 8.7-12.3 [facility] Comment on above: Performed By: #### H EMOGC ####[facility] (DEFAULT)[address] [place] [address] Platelets (Bld) [#/Vol] 173 10*3/uL Normal 146-337 [facility] Comment on above: Performed By: #### H EMOGC ####[facility] (DEFAULT)[address] [facility] [place] [place] [address] RBC (Bld) [#/Vol] 4.41 10*6/uL Normal 4.38-5.83 [facility] Comment on above: Performed By: #### H EMOGC ####[facility] (DEFAULT)[address] [facility] [place] [place] [address] RBC Distribution 13.2 % Normal 10.9-14.3 [facility] Comment on above: Performed By: #### H EMOGC ####[facility] (DEFAULT)[address] [place] [address] WBC (Bld) [#/Vol] 4.57 10*3/uL Normal 3.73-10.10 [facility] Comment on above: Performed By: #### [facility] [place] ####[facility] (DEFAULT)[address] [place] [address] CHEM 7 (LYTES,BUN,CREA,GLUC) on 09-04-2023 Anion gap [Moles/Vol] 16 mmol/L 7 - 17 mmol/L [facility] Chloride [Moles/Vol] 104 mmol/L 98 - 10 8 mmol/L [facility] CO2 [Moles/Vol] 18 mmol/L Low 21 - 31 mmol/L [facility] Creatinine [Mass/Vol] 1.22 mg/dL 0.70 - 1.30 mg/dL [facility] eGFR, CKD-EPI, Male 71 - [facility]F [facility] Glucose [Mass/Vol] 124 mg/dL High 70 - 99 mg/dL [facility] Osmolality Calc [Osmolality] 284 [facility] Potassium [Moles/Vol] 3.9 mmol/L 3.5 - 5.0 mmol/L [facility] Sodium [Moles/Vol] 134 mmol/L Low 135 - 145 mmol/L [facility] Urea nitrogen [Mass/Vol] 15 mg/dL 7 - 25 mg/dL [facility] Urea nitrogen/Creatinine [Mass ratio] 12 mg/mg [facility] Anion gap [Moles/Vol] 16 mmol/L Normal 7-17 [facility] Comment on above: Performed By: #### NATHANIEL RAMÍREZ, HFP ####[facility] (DEFAULT)[address] [place] [address] Chloride [Moles/Vol] 104 mmol/L Normal 98-108 [facility] Comment on above: Performed By: #### NATHANIEL RAMÍREZ, HFP ####[facility] (DEFAULT)[address] [place] [address] CO2 [Moles/Vol] 18 mmol/L Low 21-31 [facility] Comment on above: Performed By: #### NATHANIEL RAMÍREZ, HFP ####[facility] (DEFAULT)[address] [place] [address] Creatinine [Mass/Vol] 1.22 mg/dL Normal 0.70-1.30 [facility] Comment on above: Performed By: #### NATHANIEL RAMÍREZ, HFP ####[facility] (DEFAULT)[address] [place] [address] GFR/1.73 sq M.predicted among non-blacks MDRD (S/P/Bld) [Vol rate/Area] 71 mL/min/{1.73_m2} Normal >=60 [facility] Comment on above: Result Comment: Repo rted eGFR is based on the CKD-EPI 2020 equation using creatinine, age, and sex. Performed By: #### NATHANIEL RAMÍREZ, HFP ####[facility] (DEFAULT)[address] [place] [address] Glucose [Mass/Vol] 124 mg/dL High 70-99 [facility] Comment on above: Performed By: #### NATHANIEL RAMÍREZ, HFP ####[facility] (DEFAULT)[address] [place] [address] Osmolality [Osmolality] 284 mosm/kg Normal 278-305 [facility] Comment on above: Performed By: #### NATHANIEL RAMÍREZ, HFP ####[facility] (DEFAULT)[address] [place] [address] Potassium [Moles/Vol] 3.9 mmol/L Normal 3.5-5.0 [facility] Comment on above: Performed By: #### NATHANIEL RAMÍREZ, HFP ####[facility] (DEFAULT)[address] [place] [address] Sodium [Moles/Vol] 134 mmol/L Low 135-145 [facility] Comment on above: Performed By: #### M NATHANIEL BLOOM, HFP ####[facility] (DEFAULT)[address] [place] [address] Urea nitrogen [Mass/Vol] 15 mg/dL Normal 7-25 [facility] Comment on above: Performed By: #### NATHANIEL RAMÍREZ, HFP ####[facility] (DEFAULT)[address] [place] [address] Urea nitrogen/Creatinine [Mass ratio] 12 mg/mg Normal [facility] Comment on above: Performed By: #### NATHANIEL RAMÍREZ, HFP ####[facility] (DEFAULT)[address] [place] [address] CMV PCR,FLUIDS,URINE,EYE ETC on 09-04-2023 Specimen source [...] [facility] AST [Catalytic activity/Vol] 30 U/L 10 - 39 U/L [facility] Bilirubin [Mass/Vol] 1.2 mg/dL NINF - 1.5 mg/dL [facility] Bilirubin.direct [Mass/Vol] 0.4 mg/dL High NINF - 0.3 mg/dL [facility] Protein [Mass/Vol] 6.4 g/dL 6.4 - 8.3 g/dL [facility] Albumin [Mass/Vol] 3.0 g/dL Low 3.5-5.0 [facility] Comment on above: Performed By: #### NATHANIEL RAMÍREZ, HFP ####[facility] (DEFAULT)[address] [place] [address] ALP [Catalytic activity/Vol] 112 U/L Normal 32-126 [facility] Comment on above: Performed By: #### NATHANIEL RAMÍREZ, HFP ####[facility] (DEFAULT)[address] [place] [address] ALT [Catalytic activity/Vol] 22 U/L Normal 10-52 [facility] Comment on above: Performed By: #### NATHANIEL RAMÍREZ, HFP ####[facility] (DEFAULT)[address] [place] [address] AST [Catalytic activity/Vol] 30 U/L Normal 10-39 [facility] Comment on above: Performed By: #### NATHANIEL RAMÍREZ, HFP ####[facility] (DEFAULT)[address] [place] [address] Bilirubin [Mass/Vol] 1.2 mg/dL Normal <1.5 [facility] Comment on above: Performed By: #### NATHANIEL RAMÍREZ, HFP ####[facility] (DEFAULT)[address] [place] [address] Bilirubin.indirect [Mass/Vol] 0.4 mg/dL High <0.3 [facility] Comment on above: Performed By: #### NATHANIEL RAMÍREZ, HFP ####[facility] (DEFAULT)[address] [place] [address] Protein [Mass/Vol] 6.4 g/dL Normal 6.4-8.3 [facility] Comment on above: Performed By: #### NATHANIEL RAMÍREZ, HFP ####[facility] (DEFAULT)[address] [place] [address] LEGIONELLA PCRon 09-04-2023 Legionella sp rRNA Probe Ql (Unsp spec) Negative Not Applicable [facility] Specimen source Nom (Unsp spec) BAL RML [facility] - Microbiology an d Antimicrobial susceptibilityon 09-04-2023 CMV DNA ESTELITA+probe Ql (Unsp spec) Negative Negative [facility] MAGNESIUMon 09-04-2023 Magnesium [Mass/Vol] 1.4 mg/dL Low 1.6 - 2 .6 mg/dL [facility] Magnesium [Mass/Vol] 1.4 mg/dL Low 1.6-2.6 [facility] Comment on above: Performed By: #### M , CHM7, [facility] ####[facility] (DEFAULT)[address] [place] [address] No Panel Informationon 09-04 Annotation comment [Interpretation] Narrative DNR [facility] PN Report Status DNR [facility] Pneumocystis jiroveci,PCR result Negative Not Applicable [facility] Interpretation and review of laboratory results Abnormal [facility] PNEUMOCYSTIS JIROVECI,PCRon 09-04-2023 Specimen source [...] [facility] Work Phone: TACROLIMUS LEVEL, TROUGH (UT E DRUG LEVEL)on 09-04-2023 Interpretation and review of laboratory results Abnormal [facility] Tacrolimus (Bld) [Mass/Vol] 3.6 ng/mL Low [facility] Tacrolimus, Trough 3.6 ng/mL Low Bone Susana ow Transplant: 4.0-12.0, Therapeutic: 5.0-15.0 [facility] Comment on above: Order Comment: Pleas e draw at specified interval PRIOR to dose. Do not hold dose to wait for level. Specimens batched twice per day, (M-F) and once per day weekendsMethod performed is a chemiluminescent microparticle immunoasssay on the [employer] i2000.The range is based on experience at [facility] and users should be aware that target concentrations vary widely depending on concomitant therapy, time post-transplant, and desired degree of immunosuppression. Performed By: #### T ACRO ####[facility] (DEFAULT)[address] [place] [address] XR CHEST PORTABLEon 09-04-20 23 XR CHEST PORTABLE Normal [facility] ASPERGILLUS ANTIGEN, BALon 1 Galactomannan Ag IA Qn (Unsp spec) <0.500 NINF [facility] Galactomannan Ag IA Qn (Unsp spec) <0.500 NINF [facility] BAL CONSULTOrdered By: Noa Peralta [...] Jame (Unsp spec) [Interp] Leonardo Peralta MD [facility] BRONCHOSCOPYon 09-03-2023 LAB, [facility] CBC,PLATELETSon 09-03-2023 Erythrocyte distribution width (RBC) [...] [facility] RBC (Bld) [#/Vol] 4.61 10*6/uL [facility] WBC (Bld) [#/Vol] 4.36 10*3/uL 3.73 - 10. 10 K/uL [facility] Hematocrit (Bld) [Volume fraction] 39.6 % Normal 39.6-48.8 [facility] Comment on above: Performed By: #### H EMOGC ####[facility] (DEFAULT)[address] [place] [address] Hemoglobin (Bld) [Mass/Vol] 12.8 g/dL Low 13.4-16.8 [facility] Comment on above: Performed By: #### H EMOGC ####[facility] (DEFAULT)[address] [place] [address] MCV (RBC) [Entitic vol] 85.9 fL Normal 79.0-94.5 [facility] Comment on above: Performed By: #### H EMOGC ####[facility] (DEFAULT)[address] [place] [address] Mean Cell Hgb 27.8 pg Normal 26.1-33.3 [facility] Comment on above: Performed By: #### H EMOGC ####[facility] (DEFAULT)[address] [place] [address] Mean Cell Hgb Conc 32.3 g/dL Normal 31.9-36.5 [facility] Comment on above: Performed By: #### H EMOGC ####[facility] (DEFAULT)[address] [facility] [place] [address] Platelet mean volume (Bld) [Entitic vol] 9.4 fL Normal 8.7-12.3 [facility] Comment on above: Performed By: #### H EMOGC ####[facility] (DEFAULT)[address] [place] [address] Platelets (Bld) [#/Vol] 222 10*3/uL Normal 146-337 [facility] Comment on above: Performed By: #### [facility] [place] ####[facility] (DEFAULT)[address] [place] [address] RBC (Bld) [#/Vol] 4.61 10*6/uL Normal 4.38-5.83 [facility] Comment on above: Performed By: #### [facility] [place] ####[facility] (DEFAULT)[address] [place] [address] RBC Distribution 13.4 % Normal 10.9-14.3 [facility] Comment on above: Performed By: #### H [facility] [place] ####[facility] (DEFAULT)[address] [place] [address] WBC (Bld) [#/Vol] 4.36 10*3/uL Normal 3.73-10.10 [facility] Comment on above: Performed By: #### [facility] [place] ####[facility] (DEFAULT)[address] [place] [address] CHEM 7 (LYTES,BUN,CREA,GLUC) on 09-03-2023 Anion gap [Moles/Vol] 12 mmol/L 7 - 17 mmol/L [facility] Chloride [Moles/Vol] 104 mmol/L 98 - 10 8 mmol/L [facility] CO2 [Moles/Vol] 24 mmol/L 21 - 31 mmol/L [facility] Creatinine [Mass/Vol] 1.20 mg/dL 0.70 - 1.30 mg/dL [facility] eGFR, CKD-EPI, Male 73 - PINF [facility] Glucose [Mass/Vol] 112 mg/dL High 70 - 99 mg/dL [facility] Osmolality Calc [Osmolality] 288 [facility] Potassium [Moles/Vol] 4.1 mmol/L 3.5 - 5.0 mmol/L [facility] Sodium [Moles/Vol] 136 mmol/L 135 - 145 mmol/L [facility] Urea nitrogen [Mass/Vol] 17 mg/dL 7 - 25 mg/dL [facility] Urea nitrogen/Creatinine [Mass ratio] 14 mg/mg [facility] Anion gap [Moles/Vol] 12 mmol/L Normal 7-17 [facility] Comment on above: Performed By: #### NATHANIEL RAMÍREZ, HFP ####[facility] (DEFAULT)[address] [facility] [place] [place] [address] Chloride [Moles/Vol] 104 mmol/L Normal 98-108 [facility] Comment on above: Performed By: #### NATHANIEL RAMÍREZ, HFP ####[facility] (DEFAULT)[address] [facility] [place] [address] CO2 [Moles/Vol] 24 mmol/L Normal 21-31 [facility] Comment on above: Performed By: #### NATHANIEL RAMÍREZ, HFP ####[facility] (DEFAULT)[address] [facility] [place] [place] [address] Creatinine [Mass/Vol] 1.20 mg/dL Normal 0.70-1.30 [facility] Comment on above: Performed By: #### NATHANIEL RAMÍREZ, HFP ####[facility] (DEFAULT)[address] [facility] [place] [address] GFR/1.73 sq M.predicted among non-blacks MDRD (S/P/Bld) [Vol rate/Area] 73 mL/min/{1.73_m2} Normal >=60 [facility] Comment on above: Result Comment: Repo rted eGFR is based on the CKD-EPI 2020 equation using creatinine, age, and sex. Performed By: #### NATHANIEL RAMÍREZ, HFP ####[facility] (DEFAULT)[address] [facility] [place] [place] [address] Glucose [Mass/Vol] 112 mg/dL High 70-99 [facility] Comment on above: Performed By: #### M TJ BLOOM7, HFP ####U [facility] (DEFAULT)[address] [place] [address] Osmolality [Osmolality] 288 mosm/kg Normal 278-305 [facility] Comment on above: Performed By: #### TJ RAMÍREZ7, HFP ####[facility] (DEFAULT)[address] [place] [address] Potassium [Moles/Vol] 4.1 mmol/L Normal 3.5-5.0 [facility] Comment on above: Performed By: #### M TJ BLOOM7, HFP ####[facility] (DEFAULT)[address] [place] [address] Sodium [Moles/Vol] 136 mmol/L Normal 135-145 [facility] Comment on above: Performed By: #### NATHANIEL RAMÍREZ, HFP ####[facility] (DEFAULT)[address] [place] [address] Urea nitrogen [Mass/Vol] 17 mg/dL Normal 7-25 [facility] Comment on above: Performed By: #### TJ RAMÍREZ7, HFP ####[facility] (DEFAULT)[address] [place] [address] Urea nitrogen/Creatinine [Mass ratio] 14 mg/mg Normal [facility] Comment on above: Performed By: #### M TJ BLOOM7, HFP ####[facility] (DEFAULT)[address] [place] [address] CYTOLOGY, NON-GYNOrdered By: Sherice Jimenez on 09-03-2023 CYTOLOGIC DIAGNOSIS u7xjpZBcGBLmaZQeUOLaH9nxqrU wILQtaYXrN3WzzbksUFkkCT7aOZ 5ezBfitETacGHwHFSpKpMyq3fqd 268fZXul3jtSSKXxauetSn1h0pm NBKDcG9du0f4mG43LJIhmM1hcZC rJQgkhcTvBHwzdhUsmnFwKsy2PV G0eHrnVdxenFT2gHHueDJ6XTnkj 5YeiZxiiDhcOEK8FLBnUrwiMHhh zJP0qUQgsUyxdTNeXE3sp1vknSH 0faNhQKQ9ePhmxQB1dNoqyjwka8 sqwIB4iHE8NTeusDL6PBbnZqSjR 2zzDBAiyR6mO90yQ4ywDDRhaIig DLktZGUzaAV4JIT4VWIer5syMWS pfVKxpZRoFmGfSKauNxq0m4irMY VfsX01kMKxfvK0pXjbRYozzFF7O V32ERyvs3ShNFDvgJcyGLKqhI7a YzIzXGxldmVsbmZjbjIzXGxldmV zbiSiRBvzuhRlb6FxyhBcuCA0WW vzupUwqFR8iYkwCBDwM0C5Q771P IgwynLhwpSuAzPjgkj9MEJklVva bGlzdGxldmVsXGxldmVsbmZjMjN fpZJ0GSrzDePmEaUzvLL5MCydHz YucEE1VOhyuHUwuHC5KMupyUM7L Ss4CBg9YBcbMCnqFhf8uCmamLM6 SSzvvR7tSTYvV38qLiC1r7fbzHX 4hSY3EKusdOC1IWdjCkSpW9ufOR CclO5sA92cK6xcOJGejJotFYhzK OXexHU0AGM9LNNsl4wkHPIdqIIp yXYuQzJgGMxvIrd9r2enTMXvoN3 5aIZogwJ2xBmrEI46NEhch8BkFC WcnOeaNSIpgN3iZpJdZVxexxShj mZjbjIzXGxldmVsamMwXGxldmVs g9KnatZrzCO3FAbsiqKooBT7wQw xADFjL5Y3L917AFdezoZlqgJwNd Zorhq3JENdhKyfcPiswJctyvElH NeooxBxuaRyZnAsfAP6YCyvAoLh HkArlZA6LOktFeFtaAE0CJndpFC djAS7XEmqiWC3AYr2VCi3EAggYX ceMrm8rAdmcSN6LJkboT9wOITlA 49sTyH9a3qfgPK3hDH6TWqxeJM0 CDcpZsVrU0akJHPglV0eS27vN9k eILJmxOdjGJirTQGjcJY6LFE2MX Wod8taHLGphHUanRDfEaQwGGojY jc6a5zzEVCugT88iFAdxcB1vXpa CW45FZraj5VwRCLzgNbxORBsrB3 mYzIzXGxldmVsbmZjbjIzXGxldm CvjqUpXLayqoGny3VxzjXlcOO4P XxyfwNbzOS6tCdlJIQuJ0G0I857 OQiykkMlrqMkHdLnhdc0FRGvmAg cbGlzdGxldmVsXGxldmVsbmZjMj UjdAW9DWoyEyImCqQkrXR8EAamC bAdoTL1JGtceOJpsQL9KDrhqAX2 RRl1VLz5WFlqFBjeDce3kQqrzBN 9RRbarM9nGTYtL25lJcE1eJ37RT etyXochJ38VJJnyTRntCTahZO1F IxyzLghcC21ATZfzDSoSPjsy0Jw MTDtCbA3MSL7HULdcMzcuG30VRA thGGfV495egRtVRuqXB32XGBihP VztwHgRuDqKYIyyTZoyXZ1DXQzN K7sstliUUinJWgzZZShxcF2HSAm lCXzQ0ClETMcAT2dbnqhHWG4NGm pPXRsOBQ5QsEpFAGsb2Ajeuj4Zw KrwZo5p6faPUCxSYUkqFhjn1knY VT6XTQdjOCcF8xnzN1yIWMcAH2x avtpx9boLOwlTFshCCSqcUE4kdZ 9INQzgAOwW3KifF8qPUKzLPCqft UadDiteZ7lXkthyeZfNNYgWMNKS hVJOc8NN8eCWHeKJN8KGLOaVHIR ALlEIIQGAJZIJXdXH9YDMQpSRjW lNDNuSSSnI9jTF3xGX4cjXqgiNe KmGNbgAMZhTgAmN5LpRHYwfbgyY LRhEUCYZX0ISOXLXSNSWm8GHIP5 FCVasjqycJU8CHhoyaButIf7kZL feLmotA8rWhxqlnNcBKUoOXKTqg NHLYyrN55ctkPtM3WorTEiKFEoL ZkzZO90jTNpTNHycORyNCg5cR4x SXzwmJruvfDDoVFywS3bwtvwEUz jZjBccGFyXGxpMFxsczBccGFyfQ == [facility] Work Phone: Case Report [facility] Work Phone: Clinical History t5osjMIzSLPkzPJcIOZa D3brtlI xIHHfcYZdR4ZpmdczJMhdDG1jBG 7ymLmdjGAvjERvOBNnQoCrf6alf 722aXLmq5umDCQSjoafgMq9nHeh T45rq3S6GyekE9xqSGGvDTsrEPT tFBcqtZJnOPx8ZYMjwEIqxoXiNu NzFJQqgHOfbDR9PGJfIR0sqereB KxcEIpfLVQkysB1ZXKlvUQlV6Fy PIDaBU9ymofwESO0CFsgFHDgLPD 0YiQcCHVmb8Cjafw6XfNmuIl6r4 auYYCtYZUgyWfuq3joQVD5SNHiw RJgU7ybpH5cITPlYW7qhmpfa5mv HXydMZhkFHXayQV3szL0DQNbvEZ zZ8KutA5nMTCtBGNyrjDvpQmnvA 5cZnMyMFxjZjEgUmVuYWwgdHJhb cCnrANmyA6hGMJycs3= [facility] Work Phone: For Immediate Release to Patient's MyChart? Yes Yes [facility] Work Phone: Gross Description f3pinHYrMDImiRQmYGUe Z1vunpL fELWjgJLfU0EgnnaeLZtaCA0zOV 6cnMbumVWweKXeHUGuHpYxo5lgw 537xLUga7qjMFVWrblygXl4oSdp T12pj7W7FwotU97ytODgVEZ7YPB nCGJsyXMwUMNdROQ9JAFiuOOiK5 psGKTcNT7avqitKIrzNGrrMLFxc IK9PHQtuNKiT3ZnFLAiCEfgBMDo ldz4LpSrEi3zjNQxuEpaTQagUGN kXHBsYWluXGZzMjAgTExMIEJBTF doGLJuCAAnlQItHUz7OAAdxT0mh EDagdCdfTXyeY3ceGnzXLewLJEm AOACRPZxjBtkCCHECZYtv0NsvU9 ccGFyXHBhcmRccGFyXHBhcn0= [facility] Work Phone: [place] [...] g/dL [facility] Albumin [Mass/Vol] 3.2 g/dL Low 3.5-5.0 [facility] Comment on above: Performed By: #### M HLEEN BLOOMM7, HFP ####[facility] (DEFAULT)[address] [place] [address] ALP [Catalytic activity/Vol] 118 U/L Normal 32-126 [facility] Comment on above: Performed By: #### M HELEN BLOOMM7, HFP ####[facility] (DEFAULT)[address] [place] [address] ALT [Catalytic activity/Vol] 25 U/L Normal 10-52 [facility] Comment on above: Performed By: #### M HELEN BLOOMM7, HFP ####[facility] (DEFAULT)[address] [facility] [place] [address] AST [Catalytic activity/Vol] 32 U/L Normal 10-39 [facility] Comment on above: Performed By: #### M MERLE CHM7, HFP ####[facility] (DEFAULT)[address] [facility] [place] [address] Bilirubin [Mass/Vol] 1.0 mg/dL Normal <1.5 [facility] Comment on above: Performed By: #### M MERLE CHM7, HFP ####[facility] (DEFAULT)[address] [place] [address] Bilirubin.indirect [Mass/Vol] 0.3 mg/dL High <0.3 [facility] Comment on above: Performed By: #### M MERLE CHM7, HFP ####[facility] (DEFAULT)[address] [place] [address] Protein [Mass/Vol] 6.5 g/dL Normal 6.4-8.3 [facility] Comment on above: Performed By: #### M MERLE, CHM7, HFP ####[facility] (DEFAULT)[address] [place] [address] HISTOPLASMA AND BLASTOMYCES ANTIGEN, ENZYME IMMUNOASSAY, SERMon 09-03-2023 Histoplasma/Blastomy antonia Ag Result Detected Critically abnormal Not Detected [facility] Histoplasma/Blastomy antonia Ag Value 5.3 ng/mL [facility] Interpretation and review of laboratory results Abnormal [facility] IMMUNOPHENOTYPING, TISSUE/FL UIDon 09-03-2023 BKR DX CODE Use Ordering Normal [facility] Comment on above: Order Comment: Pleas e lab add on to specimen collected yesterdayIMMUNOPHENOTYPING DIAGNOSISPATIENT NAME: GEORGE SLATER: 1970MRN: [id number]#: [id number] BY: Yossi Perla M.D,, Ph.D. [id number] TYPE: Bronchial Alveolar LavageLABORATORY INTERPRETATION:There is no [...] performance characteristicsdetermined The [facility] Cytometry [facility] at [facility]. It has notbeen cleared or approved by the FDA. This laboratory is certifiedunder the Clinical Laboratory Improvement Amendments (CLIA)as qualified to perform high complexity clinical laboratorytesting. This test is used for clinical purposes. It should notbe regarded as investigational or for research.The [facility] Flow Cytometry Laboratory lower limitof CLL MRD detection is 0.1% of the gated lymphocytes. Performed By: #### G IPP ####[facility] (DEFAULT)[address] [place] [address] Flow Interpretation See Comment Normal [facility] Comment on above: Order Comment: Dilan e lab add on to specimen collected yesterdayIMMUNOPHENOTYPING DIAGNOSISPATIENT NAME: GEORGE SLATER: 1970MRN: [id number]#: [id number] BY: Yossi Perla M.D,, Ph.D. [id number] TYPE: Bronchial Alveolar LavageLABORATORY INTERPRETATION:There is no [...] performance characteristicsdetermined The Flow Cytometry Laboratory at [facility]. It has notbeen cleared or approved by the FDA. This laboratory is certifiedunder the Clinical Laboratory Improvement Amendments (CLIA)as qualified to perform high complexity clinical laboratorytesting. This test is used for clinical purposes. It should notbe regarded as investigational or for research.The [facility] Flow Cytometry Laboratory lower limitof CLL MRD detection is 0.1% of the gated lymphocytes. Performed By: #### G [facility] ####[facility] (DEFAULT)[address] [place] [address] Flow Interpreted by: Yossi Perla MD, PhD [facility] Comment on above: Order Comment: Pleas e lab add on to specimen collected yesterdayIMMUNOPHENOTYPING DIAGNOSISPATIENT NAME: GEORGE SLATER: 1970MRN: [id number]#: [id number] BY: Yossi Perla M.D,, Ph.D. [id number] TYPE: Bronchial Alveolar LavageLABORATORY INTERPRETATION:There is no [...] performance characteristicsdetermined The Flow Cytometry Laboratory at [facility]. It has notbeen cleared or approved by the FDA. This laboratory is certifiedunder the Clinical Laboratory Improvement Amendments (CLIA)as qualified to perform high complexity clinical laboratorytesting. This test is used for clinical purposes. It should notbe regarded as investigational or for research.The [facility] Flow Cytometry Laboratory lower limitof CLL MRD detection is 0.1% of the gated lymphocytes. Performed By: #### G IPP ####[facility] ([facility])[address] [place] [address] 09-03-2023 Interpretation and review of laboratory results Normal [facility] Magnesium [Mass/Vol] 1.6 mg/dL 1.6 - 2 .6 mg/dL [facility] Magnesium [Mass/Vol] 1.6 mg/dL Normal 1.6-2.6 [facility] Comment on above: Performed By: #### M GO, CHM7, HFP ####[facility] (DEFAULT)[address] [place] [address] No Panel Informationon 09-03 Interpretation and review of laboratory results Abnormal [facility] PARVOVIRUS (B19) DNA, PCR, B LOODon 09-03-2023 PARVOVIRUS B19 BY RAPID PCR Not detected Not Detected [facility] UT SPEC SOURCE Whole Blood [facility] Portable XR Chest Viewson RADIOLOGY RADIOLOGY [facility] Radiology Study observation (narrative) [facility] Portable XR Chest ViewsOrder ed By: [place] on 09-03-2023 [facility] Work Phone: XR CHEST PORTABLEon 09-03-20 23 XR CHEST PORTABLE Normal [facility] ACID FAST CULTUREon 09-02-20 23 Bacteria identified Cx Nom (Unsp spec) NO GROWTH DAY 42 OF 42 Normal [facility] Comment on above: Performed By: #### A FB ####[facility] (DEFAULT)[address] [place] [address] Fluorochrome Stain No acid Fast Bacillus Seen Normal [facility] Comment on above: Performed By: #### A FB ####[facility] (DEFAULT)[address] [place] [address] Bacteria identified Cx Nom (Unsp spec) NO GROWTH DAY 42 OF 42 Normal [facility] Comment on above: Order Comment: BAL A FB culture. Clinical suspicion for non-tuberculous mycobacteria Performed By: #### A FB ####[facility] (DEFAULT)[address] [place] [address] Fluorochrome Stain No acid Fast Bacillus Seen Normal [facility] Comment on above: Order Comment: BAL A FB culture. Clinical suspicion for non-tuberculous mycobacteria Performed By: #### A FB ####[facility] (DEFAULT)[address] [place] [address] ASPERGILLUS (GALACTOMANNAN), ANTIGENon 09-02-2023 Galactomannan Ag IA Qn <0.500 NINF [facility] ASPERGILLUS ANTIGEN, BALon 1 Aspergillus Galactomannan Antigen, BAL <0.500 Normal <0.5 [facility] Comment on above: Result Comment: ---- ADDITIONAL INFORMATION This is a qualitative test and the resulted index value isnot indicative of disease severity. Serial testing isrecommended for patients at high risk for invasiveaspergillosis.This assay was performed using the FDA-cleared Bio-RadPlatelia Aspergillus Galactomannan EIA.Test Performed by:[place] [id number] Director: Rosendo Bose M.D. Ph.D.; CLIA# [id number] Performed By: #### X ASGFL ####[facility] (DEFAULT)[address] [place] [address] Aspergillus Galactomannan Antigen, BAL <0.500 Normal <0.5 [facility] Comment on above: Order Comment: BAL a spirgillus antigen Result Comment: ---- ADDITIONAL INFORMATION This is a qualitative test and the resulted index value isnot indicative of disease severity. Serial testing isrecommended for patients at high risk for invasiveaspergillosis.This assay was performed using the FDA-cleared Bio-RadPlatelia Aspergillus Galactomannan EIA.Test Performed by:[address] [address]Iav Director: Rosendo Bose M.D. Ph.D.; IA# [id number] Performed By: #### X ASGFL ####[facility] (DEFAULT)[address] [place] [address] ATYPICAL BACTERIAL PNEUMONIA ,PCROrdered By: Shari Contreras [...] Ql (Unsp spec) Not detected Not Detected [facility] ATYPICAL BACTERIAL PNEUMONIA ,PCRon 09-02-2023 Bordetella Parapertussis Not detected Normal Not Detected [facility] Comment on above: Order Comment: [...] by The Clinical Microbiology Laboratory at The [facility]. It has not been cleared or approved by the FDA. The laboratory is required under CLIA as qualified to perform high-complexity testing. This test is used for clinical purposes. It should not be regarded as investigational or for research. Performed By: #### A TYPNE ####[facility] (DEFAULT)[address] [address] Bordetella Pertussis Not detected Normal Not Detected [facility] Comment on above: Order Comment: [...] by The Clinical Microbiology Laboratory at The [facility]. It has not been cleared or approved by the FDA. The laboratory is required under CLIA as qualified to perform high-complexity testing. This test is used for clinical purposes. It should not be regarded as investigational or for research. Performed By: #### A TYPNE ####[facility] (DEFAULT)[address] [address] Chlamydia Pneumoniae Not detected Normal Not Detected [facility] Comment on above: Order Comment: [...] by The Clinical Microbiology Laboratory at The [facility]. It has not been cleared or approved by the FDA. The laboratory is required under CLIA as qualified to perform high-complexity testing. This test is used for clinical purposes. It should not be regarded as investigational or for research. Performed By: #### A TYPNE ####[facility] (DEFAULT)[address] [address] Mycoplasma Pneumoniae Not detected Normal Not Detected [facility] Comment on above: Order Comment: [...] by The Clinical Microbiology Laboratory at The [facility]. It has not been cleared or approved by the FDA. The laboratory is required under CLIA as qualified to perform high-complexity testing. This test is used for clinical purposes. It should not be regarded as investigational or for research. Performed By: #### A TYPNE ####[facility] (DEFAULT)[address] [place] [address] BAL CONSULTon 09-02-2023 ALVEOLAR MACROPHAGES 33 % Normal [facility] Comment on above: Order Comment: BAL c onsultIf > 15% lymphocytes - please send for flow. Performed By: #### B ALC ####[facility] (DEFAULT)[address] [place] [address] Bal comments Correlation with microbiology stains and cultures is recommended. Correlation with viral studies is recommended. Normal [facility] Comment on above: Order Comment: BAL c onsultIf > 15% lymphocytes - please send for flow. Performed By: #### B ALC ####[facility] (DEFAULT)[address] [place] [address], [place] [address] Bal Diff Quik Stain Quality Check Acceptable Normal [facility] Comment on above: Order Comment: BAL c onsultIf > 15% lymphocytes - please send for flow. Performed By: #### B ALC ####[facility] (DEFAULT)[address] [place] [address] Bal Reviewed By: Leonardo Peralta MD [facility] Comment on above: Order Comment: BAL c onsultIf > 15% lymphocytes - please send for flow. Performed By: #### B ALC ####[facility] (DEFAULT)[address] [place] [address] BKR BAL INTERPRETATION Cellular specimen comprised of alveolar macrophages and small lymphocytes. No definitive microorganisms are observed. Rare degenerating cells with changes suggestive of viral cytopathic effect are noted. Moderate degenerative changes. Normal [facility] Comment on above: Order Comment: BAL c onsultIf > 15% lymphocytes - please send for flow. Performed By: #### B ALC ####[facility] (DEFAULT)[address] [place] [address] BKR DX CODE Use Ordering Normal [facility] Comment on above: Order Comment: BAL c onsultIf > 15% lymphocytes - please send for flow. Performed By: #### B ALC ####[facility] (DEFAULT)[address] [place] [address] Eosinophils/100 WBC (Bld) 0 % Normal [facility] Comment on above: Order Comment: BAL c onsultIf > 15% lymphocytes - please send for flow. Performed By: #### B ALC ####[facility] (DEFAULT)[address] [place] [address] Lymphocytes/100 WBC (Bld) 49 % Normal [facility] Comment on above: Order Comment: BAL c onsultIf > 15% lymphocytes - please send for flow. Performed By: #### B ALC ####[facility] (DEFAULT)[address] [facility] [place] [address] Neutrophils/100 WBC (Bld) 18 % Normal [facility] Comment on above: Order Comment: BAL c onsultIf > 15% lymphocytes - please send for flow. Performed By: #### B ALC ####[facility] (DEFAULT)[address] [facility] [place] [address] ALVEOLAR MACROPHAGES 32 % Normal [facility] Comment on above: Order Comment: BAL c onsult for cell differential and pathologist review. Please do flow cytometry if > 12% lymphocytes Performed By: #### B ALC ####[facility] (DEFAULT)[address] [facility] [place] [address] Bal comments Correlation with microbiology stains and cultures is recommended. Normal [facility] Comment on above: Order Comment: BAL c onsult for cell differential and pathologist review. Please do flow cytometry if > 12% lymphocytes Performed By: #### B ALC ####[facility] (DEFAULT)[address] [place] [address] Bal Diff Quik Stain Quality Check Acceptable Normal [facility] Comment on above: Order Comment: BAL c onsult for cell differential and pathologist review. Please do flow cytometry if > 12% lymphocytes Performed By: #### B ALC ####[facility] (DEFAULT)[address] [place] [address] Bal Reviewed By: Leonardo Peralta MD [facility] Comment on above: Order Comment: BAL c onsult for cell differential and pathologist review. Please do flow cytometry if > 12% lymphocytes Performed By: #### B ALC ####[facility] (DEFAULT)[address] [place] [address] BKR BAL INTERPRETATION Cellular specimen comprised of alveolar macrophages and small lymphocytes. No definitive microorganisms are observed. Moderate degenerative changes. Normal [facility] Comment on above: Order Comment: BAL c onsult for cell differential and pathologist review. Please do flow cytometry if > 12% lymphocytes Performed By: #### B ALC ####[facility] (DEFAULT)[address] [place] [address] BKR DX CODE Use Ordering Normal [facility] Comment on above: Order Comment: BAL c onsult for cell differential and pathologist review. Please do flow cytometry if > 12% lymphocytes Performed By: #### B ALC ####[facility] (DEFAULT)[address] [place] [address], [place] [address] Eosinophils/100 WBC (Bld) 0 % Normal [facility] Comment on above: Order Comment: BAL c onsult for cell differential and pathologist review. Please do flow cytometry if > 12% lymphocytes Performed By: #### B ALC ####[facility] (DEFAULT)[address] [place] [address] Lymphocytes/100 WBC (Bld) 57 % Normal [facility] Comment on above: Order Comment: BAL c onsult for cell differential and pathologist review. Please do flow cytometry if > 12% lymphocytes Performed By: #### B ALC ####[facility] (DEFAULT)[address] [place] [address] Neutrophils/100 WBC (Bld) 11 % Normal [facility] Comment on above: Order Comment: BAL c onsult for cell differential and pathologist review. Please do flow cytometry if > 12% lymphocytes Performed By: #### B ALC ####[facility] (DEFAULT)[address] [place] [address] BRONCHOSCOPYon 09-02-2023 Radiology Study observation (narrative) [facility] Bacteria identified Cx Nom ( Bld)on 09-02-2023 Bacteria identified Cx Nom (Unsp spec) NO GROWTH DAY 5 OF 5 [facility] CBC,PLATELETSon 09-02-2023 Erythrocyte distribution width [...] [facility] RBC (Bld) [#/Vol] 4.62 10*6/uL [facility] WBC (Bld) [#/Vol] 4.12 10*3/uL 3.73 - 10. 10 K/uL [facility] Hematocrit (Bld) [Volume fraction] 39.9 % Normal 39.6-48.8 [facility] Comment on above: Performed By: #### [place] [facility] [place] ####[facility] (DEFAULT)[address] [place] [address] Hemoglobin (Bld) [Mass/Vol] 12.9 g/dL Low 13.4-16.8 [facility] Comment on above: Performed By: #### H EMOGC ####[facility] (DEFAULT)[address] [facility] [place] [address] MCV (RBC) [Entitic vol] 86.4 fL Normal 79.0-94.5 [facility] Comment on above: Performed By: #### H EMOGC ####[facility] (DEFAULT)[address] [facility] [place] [address] Mean Cell Hgb 27.9 pg Normal 26.1-33.3 [facility] Comment on above: Performed By: #### H EMOGC ####[facility] (DEFAULT)[address] [facility] [place] [address] Mean Cell Hgb Conc 32.3 g/dL Normal 31.9-36.5 [facility] Comment on above: Performed By: #### H EMO ####[facility] (DEFAULT)[address] [facility] [place] [address] Platelet mean volume (Bld) [Entitic vol] 9.5 fL Normal 8.7-12.3 [facility] Comment on above: Performed By: #### H EMOGC ####[facility] (DEFAULT)[address] [facility] [place] [address] Platelets (Bld) [#/Vol] 210 10*3/uL Normal 146-337 [facility] Comment on above: Performed By: #### H EMOGC ####[facility] (DEFAULT)[address] [facility] [place] [address] RBC (Bld) [#/Vol] 4.62 10*6/uL Normal 4.38-5.83 [facility] Comment on above: Performed By: #### H EMOGC ####[facility] (DEFAULT)[address] [facility] [place] [address] RBC Distribution 13.2 % Normal 10.9-14.3 [facility] Comment on above: Performed By: #### [facility] [place] ####[facility] (DEFAULT)[address] [place] [address] WBC (Bld) [#/Vol] 4.12 10*3/uL Normal 3.73-10.10 [facility] Comment on above: Performed By: #### [facility] [place] ####[facility] (DEFAULT)[address] [place] [address] CHEM 7 (LYTES,BUN,CREA,GLUC) on 09-02-2023 Anion gap [Moles/Vol] 13 mmol/L 7 - 17 mmol/L [facility] Chloride [Moles/Vol] 105 mmol/L 98 - 10 8 mmol/L [facility] CO2 [Moles/Vol] 22 mmol/L 21 - 31 mmol/L [facility] Creatinine [Mass/Vol] 1.25 mg/dL 0.70 - 1.30 mg/dL [facility] eGFR, CKD-EPI, Male 69 - PINF [facility] Glucose [Mass/Vol] 105 mg/dL High 70 - 99 mg/dL [facility] Osmolality Calc [Osmolality] 287 [facility] Potassium [Moles/Vol] 4.3 mmol/L 3.5 - 5.0 mmol/L [facility] Sodium [Moles/Vol] 136 mmol/L 135 - 145 mmol/L [facility] Urea nitrogen [Mass/Vol] 16 mg/dL 7 - 25 mg/dL [facility] Urea nitrogen/Creatinine [Mass ratio] 13 mg/mg [facility] Anion gap [Moles/Vol] 13 mmol/L Normal 7-17 [facility] Comment on above: Performed By: #### NATHANIEL RAMÍREZ, HFP ####[facility] (DEFAULT)[address] [place] [address] Chloride [Moles/Vol] 105 mmol/L Normal 98-108 [facility] Comment on above: Performed By: #### NATHANIEL RAMÍREZ, HFP ####[facility] (DEFAULT)[address] [place] [address] CO2 [Moles/Vol] 22 mmol/L Normal 21-31 [facility] Comment on above: Performed By: #### NATHANIEL RAMÍREZ, HFP ####[facility] (DEFAULT)[address] [place] [address] Creatinine [Mass/Vol] 1.25 mg/dL Normal 0.70-1.30 [facility] Comment on above: Performed By: #### NATHANIEL RAMÍREZ, HFP ####[facility] (DEFAULT)[address] [facility] [place] [address] GFR/1.73 sq M.predicted among non-blacks MDRD (S/P/Bld) [Vol rate/Area] 69 mL/min/{1.73_m2} Normal >=60 [facility] Comment on above: Result Comment: Repo rted eGFR is based on the CKD-EPI 2020 equation using creatinine, age, and sex. Performed By: #### NATHANIEL RAMÍREZ, HFP ####[facility] (DEFAULT)[address] [place] [address] Glucose [Mass/Vol] 105 mg/dL High 70-99 [facility] Comment on above: Performed By: #### NATHANIEL RAMÍREZ, HFP ####[facility] (DEFAULT)[address] [place] [address] Osmolality [Osmolality] 287 mosm/kg Normal 278-305 [facility] Comment on above: Performed By: #### NATHANIEL RAMÍREZ, HFP ####[facility] (DEFAULT)[address] [place] [address] Potassium [Moles/Vol] 4.3 mmol/L Normal 3.5-5.0 [facility] Comment on above: Performed By: #### NATHANIEL RAMÍREZ, HFP ####[facility] (DEFAULT)[address] [place] [address] Sodium [Moles/Vol] 136 mmol/L Normal 135-145 [facility] Comment on above: Performed By: #### NATHANIEL RAMÍREZ, HFP ####[facility] (DEFAULT)[address] [facility] [place] [address] Urea nitrogen [Mass/Vol] 16 mg/dL Normal 7-25 [facility] Comment on above: Performed By: #### NATHANIEL RAMÍREZ, HFP ####[facility] (DEFAULT)[address] [place] [address] Urea nitrogen/Creatinine [Mass ratio] 13 mg/mg Normal [facility] Comment on above: Performed By: #### NATHANIEL RAMÍREZ, HFP ####[facility] (DEFAULT)[address] [place] [address] CMV PCR,FLUIDS,URINE,EYE ETC on 09-02-2023 CMV by PCR Result Negative Normal Negative [facility] Comment on above: Result Comment: ---- ADDITIONAL INFORMATION This test was developed and its performance characteristicsdetermined by [facility] in a manner consistent with CLIArequirements. This test has not been cleared or approved bythe U.S. Food and Drug Administration.Test Performed by:[address] [address]Qsg Director: Rosendo Bose M.D. Ph.D.; CLIA# [id number] Performed By: #### Y CMV ####[facility] (DEFAULT)[address] [place] [address] CMV BY PCR SOURCE BAL RML Normal [facility] Comment on above: Performed By: #### Y CMV ####[facility] (DEFAULT)[address] [place] [address] CMV by PCR Result Negative Normal Negative [facility] Comment on above: Result Comment: ---- ADDITIONAL INFORMATION This test was developed and its performance characteristicsdetermined by [facility] in a manner consistent with CLIArequirements. This test has not been cleared or approved bythe U.S. Food and Drug Administration.Test Performed by:[address] [address]Wfk Director: Rosendo Bose M.D. Ph.D.; CLIA# [id number] Performed By: #### Y CMV ####[facility] (DEFAULT)[address] [place] [address] CMV BY PCR SOURCE BAL LLL Normal [facility] Comment on above: Performed By: #### Y CMV ####[facility] (DEFAULT)[address] [place] [address] CYTOLOGY, NON-GYNon 09-02-20 CYTOLOGIC DIAGNOSIS Normal [facility] Comment on above: Result Comment: A. B RONCHOALVEOLAR LAVAGE, LEFT LOWER LOBE (CYTOLOGY):FINAL DIAGNOSIS:No Malignant Cells Are IdentifiedHypocellular Specimen Performed By: #### N ONGNNONFNA ####[facility] (DEFAULT)[address] [place] [address] Case Report Normal [facility] Comment on above: Result Comment: [facility] Cytology Report Case: [id number] Provider: Crow Diaz MD Collected: 09/02/2023 08:38 AMOrdering Location: 0W Received: 09/02/2023 10:44 AMPathologist: KENTON Caglepecimen: BRONCHOALVEOLAR LAVAGE, LLL BAL Performed By: #### N ONGNNONFNA ####[facility] (DEFAULT)[address] [place] [address] Clinical History Renal transplant. Normal [facility] Comment on above: Performed By: #### N ONGNNONFNA ####[facility] (DEFAULT)[address] [place] [address] Gross Description Normal [facility] Comment on above: Result Comment: LLL BAL1 ml hazy colorless fld unfixed1 TP slide Pap stainFor Immediate Release to Patient's MyChart? Yes Performed By: #### N ONGNNONFNA ####[facility] (DEFAULT)[address] [place] [address] FUNGUS CULTUREon 09-02-2023 Bacteria identified Cx Nom (Unsp spec) Normal [facility] Comment on above: Order Comment: Ident ification was performed on the MALDI-TOF mass spectrometer ideaForgeyper. This test was developed by The Clinical Microbiology Laboratory at The [facility]. It has not been cleared or approved by the FDA. The laboratory is regulated under CLIA as qualified to perform high-complexity testing. This test is used for clinical purposes. It should not be regarded as investigational or for research. Result Comment: Grow [id number] [place] Histoplasma capsulatum Performed By: #### F UN ####[facility] (DEFAULT)[address] [place] [address] Bacteria identified Cx Nom (Unsp spec) NO GROWTH DAY 28 OF 28 Normal [facility] Comment on above: Order Comment: BAL f ungal culture Performed By: #### F UN ####[facility] (DEFAULT)[address] [place] [address] HEPATIC FUNCTION PANELon Albumin [Mass/Vol] 3.2 g/dL [...] g/dL [facility] Albumin [Mass/Vol] 3.2 g/dL Low 3.5-5.0 [facility] Comment on above: Performed By: #### M MERLE CHM7, HFP ####[facility] (DEFAULT)[address] [place] [address] ALP [Catalytic activity/Vol] 107 U/L Normal 32-126 [facility] Comment on above: Performed By: #### M MERLE CHM7, HFP ####[facility] (DEFAULT)[address] [place] [address] ALT [Catalytic activity/Vol] 20 U/L Normal 10-52 [facility] Comment on above: Performed By: #### M MERLE CHM7, HFP ####[facility] (DEFAULT)[address] [place] [address] AST [Catalytic activity/Vol] 31 U/L Normal 10-39 [facility] Comment on above: Performed By: #### M MERLE CHM7, HFP ####[facility] (DEFAULT)[address] [place] [address] Bilirubin [Mass/Vol] 1.0 mg/dL Normal <1.5 [facility] Comment on above: Performed By: #### M MERLE CHM7, HFP ####[facility] (DEFAULT)[address] [place] [address] Bilirubin.indirect [Mass/Vol] 0.3 mg/dL High <0.3 [facility] Comment on above: Performed By: #### M GO CHM7, HFP ####[facility] (DEFAULT)[address] [place] [address] Protein [Mass/Vol] 6.6 g/dL Normal 6.4-8.3 [facility] Comment on above: Performed By: #### M GO, CHM7, HFP ####[facility] (DEFAULT)[address] [place] [address] HISTOPLASMA ANTIGEN, FLUIDon 09-02-2023 FH SOURCE BAL RML Normal [facility] Comment on above: Performed By: #### Y FHST ####[facility] (DEFAULT)[address] [facility] [place] [address] Histo FLD interpretation Negative Normal [facility] Comment on above: Result Comment: ---- ADDITIONAL INFORMATION Reference interval: None DetectedReportable Range: Positive Results reported in ng/mL from0.20 ng/mL to 20.00 ng/mLPositive Results above 20.00 ng/mL are reported as 'Abovethe Limit of Quantification'Cross-reactions occur with Blastomyces spp., Coccidioidesspp., and Paracoccidioides brasiliensis.This test was developed and its performance characteristicsdetermined by [employer]. It has not beencleared or approved by the FDA; however, FDA clearance orapproval is not currently required for clinical use. Theresults are not intended to be used as the sole means forclinical diagnosis or patient management decisions.Test Performed by:[id number] [place] [address] Performed By: #### Y FHST ####[facility] (DEFAULT)[address] [place] [address] Histoplasma Antigen, FLUID Not detected Normal [facility] Comment on above: Performed By: #### Y FHST ####[facility] (DEFAULT)[address] [place] [address] HISTOPLASMA ANTIGEN,URINEon 09-02-2023 H. capsulatum Ag (U) [Mass/Vol] Not detected ng/mL [facility] H. capsulatum Ag IA Ql (U) Not detected Not Detected [facility] HISTOPLASMA CAPSULATUM/BLAST OMYCES SPECIES,PCR FLUIDon 09-02-2023 HISTO/BLASTO RESULT Negative Normal Not Applicable [facility] Comment on above: Result Comment: A Ne gative result from BAL fluid does not rule out thepresence of Histoplasma capsulatum because the sensitivity from this source is suboptimal. ADDITIONAL INFORMATION This test was developed and its performance characteristicsdetermined by [facility] in a manner consistent with CLIArequirements. This test has not been cleared or approved bythe U.S. Food and Drug Administration.Test Performed by:[address] Director: Rosendo Bose M.D. Ph.D.; CLIA# [id number] Performed By: #### Y HBRP ####[facility] (DEFAULT)[address] [place] [address] Source BAL RML Normal [facility] Comment on above: Performed By: #### Y HBRP ####[facility] (DEFAULT)[address] [place] [address] HIV 1 AND 2 ANTIBODIES/P24 A NTIGENOrdered By: Wilma Luque on 09-02-2023 HIV 1+2 Ab+HIV1 p24 Ag IA Ql Non-Reactive Non Reactive [facility] Interpretation and review of laboratory results Normal [facility] HIV 1 AND 2 ANTIBODIES/P24 A NTIGENon 09-02-2023 HIV-1/HIV-2 Ab With p24 Antigen Non-Reactive Normal Non Reactive [facility] Comment on above: Performed By: #### L [id number] ####[facility] (DEFAULT)[address] [place] [address] LEGIONELLA CULTUREon 023 Bacteria identified Cx Nom (Unsp spec) NO GROWTH DAY 7 OF 7 Normal [facility] Comment on above: Performed By: #### L EGN ####[facility] (DEFAULT)[address] [place] [address] Bacteria identified Cx Nom (Unsp spec) NO GROWTH DAY 7 OF 7 Normal [facility] Comment on above: Order Comment: BAL l egionella culture Performed By: #### L EGN ####[facility] (DEFAULT)[address] [place] [address] LEGIONELLA PCRon 09-02-2023 Legionella species, Culture BAL RML Normal [facility] Comment on above: Performed By: #### Y LEGRP ####[facility] (DEFAULT)[address] [place] [address] Legionella, pcr result Negative Normal Not Applicable [facility] Comment on above: Result Comment: ---- ADDITIONAL INFORMATION This test was developed and its performance characteristicsdetermined by [facility] in a manner consistent with CLIArequirements. This test has not been cleared or approved bythe U.S. Food and Drug Administration.Test Performed by:[address] Director: Rosendo Bose M.D. Ph.D.; CLIA# [id number] Performed By: #### Y LEGRP ####[facility] (DEFAULT)[address] [place] [address] LOWER RESPIRATORY CULTURE, B ACTERIALon 09-02-2023 Bacteria identified Cx Nom (Unsp spec) NO GROWTH DAY 2 OF 2 Normal [facility] Comment on above: Performed By: #### R ES ####[facility] (DEFAULT)[address] [place] [address] Microscopic observation Gram stain Nom (Unsp spec) [facility] Comment on above: Result Comment: Cyto centrifuge preparationNeutrophils, RareRed Blood Cells PresentNo organisms seen Performed By: #### R ES ####[facility] (DEFAULT)[address] [place] [address] Bacteria identified Cx Nom (Unsp spec) NO GROWTH DAY 2 OF 2 Normal [facility] Comment on above: Order Comment: BAL b acterial respiratory culture Performed By: #### R ES ####[facility] (DEFAULT)[address] [place] [address] Microscopic observation Gram stain Nom (Unsp spec) Normal [facility] Comment on above: Order Comment: BAL b acterial respiratory culture Result Comment: Cyto centrifuge preparationNeutrophils, ModerateRed Blood Cells PresentNo organisms seen Performed By: #### R ES ####[facility] (DEFAULT)[address] [place] [address] MAGNESIUMon 09-02-2023 Interpretation and review of laboratory results Normal [facility] Magnesium [Mass/Vol] 1.7 mg/dL 1.6 - 2 .6 mg/dL [facility] Magnesium [Mass/Vol] 1.7 mg/dL Normal 1.6-2.6 [facility] Comment on above: Performed By: #### M GO, CHM7, HFP ####[facility] (DEFAULT)[address] [place] [address] No Panel Informationon 09-02 Interpretation and review of laboratory results Abnormal [facility] PNEUMOCYSTIS JIROVECI,PCRon 09-02-2023 PN Report Status DNR Normal [facility] Comment on above: Performed By: #### Y PNRP ####[facility] (DEFAULT)[address] [place] [address] PN Specimen Source BAL RML Normal [facility] Comment on above: Performed By: #### Y PNRP ####[facility] (DEFAULT)[address] [place] [address] Pneum jiroveci comment DNR Normal [facility] Comment on above: Performed By: #### Y PNRP ####[facility] (DEFAULT)[address] [place] [address], [place] [address] Pneumocystis jiroveci,PCR result Negative Normal Not Applicable [facility] Comment on above: Result Comment: ---- ADDITIONAL INFORMATION This test was developed and its performance characteristicsdetermined by [facility] in a manner consistent with CLIArequirements. This test has not been cleared or approved bythe U.S. Food and Drug Administration.Test Performed by:[address] [address]Swq Director: Rosendo Bose M.D. Ph.D.; CLIA# [id number] Performed By: #### Y PNRP ####[facility] (DEFAULT)[address] [place] [address], [place] [address] PN Report Status DNR Normal [facility] Comment on above: Performed By: #### Y PNRP ####[facility] (DEFAULT)[address] [place] [address] PN Specimen Source BAL LLL Normal [facility] Comment on above: Performed By: #### Y PNRP ####[facility] (DEFAULT)[address] [place] [address], [place] [address] Pneum jiroveci comment DNR Normal [facility] Comment on above: Performed By: #### Y PNRP ####[facility] (DEFAULT)[address] [place] [address], [place] [address] Pneumocystis jiroveci,PCR result Negative Normal Not Applicable [facility] Comment on above: Result Comment: ---- ADDITIONAL INFORMATION This test was developed and its performance characteristicsdetermined by [facility] in a manner consistent with CLIArequirements. This test has not been cleared or approved bythe U.S. Food and Drug Administration.Test Performed by:[address] [address]Ckk Director: oRsendo Bose M.D. Ph.D.; CLIA# [id number] Performed By: #### Y PNRP ####[facility] (DEFAULT)[address] [place] [address] TACROLIMUS LEVEL, TROUGH (UT E DRUG LEVEL)on 09-02-2023 Interpretation and review of laboratory results Normal [facility] Tacrolimus (Bld) [Mass/Vol] 4.2 ng/mL [facility] Tacrolimus, Trough 4.2 ng/mL Normal Bone Susana ow Transplant: 4.0-12.0, Therapeutic: 5.0-15.0 [facility] Comment on above: Order Comment: Pleas e draw at specified interval PRIOR to dose. Do not hold dose to wait for level. Specimens batched twice per day, (M-F) and once per day weekendsMethod performed is a chemiluminescent microparticle immunoasssay on the [employer] i2000.The range is based on experience at [facility] and users should be aware that target concentrations vary widely depending on concomitant therapy, time post-transplant, and desired degree of immunosuppression. Performed By: #### T ACRO ####[facility] (DEFAULT)[address] [place] [address] CBC,PLATELETSon 09-01-2023 Erythrocyte distribution width (RBC) [Ratio] [...] [facility] RBC (Bld) [#/Vol] 4.60 10*6/uL [facility] WBC (Bld) [#/Vol] 4.41 10*3/uL 3.73 - 10. 10 K/uL [facility] Hematocrit (Bld) [Volume fraction] 38.9 % Low 39.6-48.8 [facility] Comment on above: Performed By: #### [place] [facility] [place] ####[facility] (DEFAULT)[address] [place] [address] Hemoglobin (Bld) [Mass/Vol] 12.7 g/dL Low 13.4-16.8 [facility] Comment on above: Performed By: #### H EMO ####[facility] (DEFAULT)[address] [place] [address] MCV (RBC) [Entitic vol] 84.6 fL Normal 79.0-94.5 [facility] Comment on above: Performed By: #### H EMO ####[facility] (DEFAULT)[address] [place] [address] Mean Cell Hgb 27.6 pg Normal 26.1-33.3 [facility] Comment on above: Performed By: #### H EMO ####[facility] (DEFAULT)[address] [place] [address] Mean Cell Hgb Conc 32.6 g/dL Normal 31.9-36.5 [facility] Comment on above: Performed By: #### H EMO ####[facility] (DEFAULT)[address] [facility] [place] [address] Platelet mean volume (Bld) [Entitic vol] 9.4 fL Normal 8.7-12.3 [facility] Comment on above: Performed By: #### H EMOGC ####[facility] (DEFAULT)[address] [place] [address] Platelets (Bld) [#/Vol] 209 10*3/uL Normal 146-337 [facility] Comment on above: Performed By: #### H EMO ####[facility] (DEFAULT)[address] [place] [address] RBC (Bld) [#/Vol] 4.60 10*6/uL Normal 4.38-5.83 [facility] Comment on above: Performed By: #### H EMO ####[facility] (DEFAULT)[address] [place] [address] RBC Distribution 13.4 % Normal 10.9-14.3 [facility] Comment on above: Performed By: #### H EMOGC ####[facility] (DEFAULT)[address] [place] [address] WBC (Bld) [#/Vol] 4.41 10*3/uL Normal 3.73-10.10 [facility] Comment on above: Performed By: #### H EMO ####[facility] (DEFAULT)[address] [place] [address] CHEM 7 (LYTES,BUN,CREA,GLUC) on 09-01-2023 Anion gap [Moles/Vol] 14 mmol/L 7 - 17 mmol/L [facility] Chloride [Moles/Vol] 103 mmol/L 98 - 10 8 mmol/L [facility] CO2 [Moles/Vol] 21 mmol/L 21 - 31 mmol/L [facility] Creatinine [Mass/Vol] 1.16 mg/dL 0.70 - 1.30 mg/dL [facility] eGFR, CKD-EPI, Male 76 - PINF [facility] Glucose [Mass/Vol] 117 mg/dL High 70 [...] ratio] 16 mg/mg [facility] Anion gap [Moles/Vol] 14 mmol/L Normal 7-17 [facility] Comment on above: Performed By: #### NATHANIEL RAMÍREZ, HFP ####[facility] (DEFAULT)[address] [place] [address] Chloride [Moles/Vol] 103 mmol/L Normal 98-108 [facility] Comment on above: Performed By: #### NATHANIEL RAMÍREZ, HFP ####[facility] (DEFAULT)[address] [facility] [place] [address] CO2 [Moles/Vol] 21 mmol/L Normal 21-31 [facility] Comment on above: Performed By: #### NATHANIEL RAMÍREZ, HFP ####[facility] (DEFAULT)[address] [place] [address] Creatinine [Mass/Vol] 1.16 mg/dL Normal 0.70-1.30 [facility] Comment on above: Performed By: #### NATHANIEL RAMÍREZ, HFP ####[facility] (DEFAULT)[address] [place] [address] GFR/1.73 sq M.predicted among non-blacks MDRD (S/P/Bld) [Vol rate/Area] 76 mL/min/{1.73_m2} Normal >=60 [facility] Comment on above: Result Comment: Repo rted eGFR is based on the CKD-EPI 2020 equation using creatinine, age, and sex. Performed By: #### NATHANIEL RAMÍREZ, HFP ####[facility] (DEFAULT)[address] [place] [address] Glucose [Mass/Vol] 117 mg/dL High 70-99 [facility] Comment on above: Performed By: #### NATHANIEL RAMÍREZ, HFP ####[facility] (DEFAULT)[address] [place] [address] Osmolality [Osmolality] 285 mosm/kg Normal 278-305 [facility] Comment on above: Performed By: #### NATHANIEL RAMÍREZ, HFP ####[facility] (DEFAULT)[address] [place] [address] Potassium [Moles/Vol] 4.2 mmol/L Normal 3.5-5.0 [facility] Comment on above: Performed By: #### NATHANIEL RAMÍREZ, HFP ####[facility] (DEFAULT)[address] [place] [address] Sodium [Moles/Vol] 134 mmol/L Low 135-145 [facility] Comment on above: Performed By: #### NATHANIEL RAMÍREZ, HFP ####[facility] (DEFAULT)[address] [place] [address] Urea nitrogen [Mass/Vol] 18 mg/dL Normal 7-25 [facility] Comment on above: Performed By: #### NATHANIEL RAMÍREZ, HFP ####[facility] (DEFAULT)[address] [place] [address] Urea nitrogen/Creatinine [Mass ratio] 16 mg/mg Normal [facility] Comment on above: Performed By: #### NATHANIEL RAMÍREZ, HFP ####[facility] (DEFAULT)[address] [place] [address] CRYPTOCOCCAL ANTIGENon 09-01 Cryptococcus sp Ag Ql (S) Negative Negative [facility] Interpretation and review of laboratory results Normal [facility] Cryptococcus Antigen,Serum Negative Normal Negative [facility] Comment on above: Performed By: #### C RAG ####[facility] (DEFAULT)[address] [place] [address] HEPATIC FUNCTION PANELon Albumin [Mass/Vol] 3.3 g/dL [...] g/dL [facility] Albumin [Mass/Vol] 3.3 g/dL Low 3.5-5.0 [facility] Comment on above: Performed By: #### NATHANIEL RAMÍREZ, HFP ####[facility] (DEFAULT)[address] [facility] [place] [address] ALP [Catalytic activity/Vol] 112 U/L Normal 32-126 [facility] Comment on above: Performed By: #### NATHANIEL RAMÍREZ, HFP ####[facility] (DEFAULT)[address] [facility] [place] [address] ALT [Catalytic activity/Vol] 21 U/L Normal 10-52 [facility] Comment on above: Performed By: #### NATHANIEL RAMÍREZ, HFP ####[facility] (DEFAULT)[address] [place] [address] AST [Catalytic activity/Vol] 29 U/L Normal 10-39 [facility] Comment on above: Performed By: #### NATHANIEL RAMÍREZ, HFP ####[facility] (DEFAULT)[address] [place] [address] Bilirubin [Mass/Vol] 1.0 mg/dL Normal <1.5 [facility] Comment on above: Performed By: #### NATHANIEL RAMÍREZ, HFP ####[facility] (DEFAULT)[address] [facility] [place] [address] Bilirubin.indirect [Mass/Vol] 0.2 mg/dL Normal <0.3 [facility] Comment on above: Performed By: #### NATHANIEL RAMÍREZ, HFP ####[facility] (DEFAULT)[address] [facility] [place] [address] Protein [Mass/Vol] 6.8 g/dL Normal 6.4-8.3 [facility] Comment on above: Performed By: #### NATHANIEL RAMÍREZ, HFP ####[facility] (DEFAULT)[address] [facility] [place] [address] L. pneumophila 1 Ag IA Ql (U )Ordered By: Carolin Miles on 09-01-2023 Interpretation and review of laboratory results Normal [facility] LEGIONELLA URINARY AGOrdered By: Carolin Miles on 09-01-2023 L. pneumophila 1 Ag IA Ql (U) Negative Negative [facility] MAGNESIUMon 09-01-2023 Interpretation and review of laboratory results Normal [facility] Magnesium [Mass/Vol] 1.6 mg/dL 1.6 - 2 .6 mg/dL [facility] Magnesium [Mass/Vol] 1.6 mg/dL Normal 1.6-2.6 [facility] Comment on above: Performed By: #### NATHANIEL RAMÍREZ, HFP ####[facility] (DEFAULT)[address] [place] [address] No Panel Informationon 09-01 Interpretation and review of laboratory results Abnormal [facility] PARVOVIRUS (B19) DNA, PCR, B LOODon 09-01-2023 PARVOVIRUS B19 BY RAPID PCR Not detected Normal Not Detected [facility] Comment on above: Result Comment: The primers/probe used in this assay will detectparvovirus B19 and V9 (genotypes 1 # 3) but maynot detect parvovirus genotype 2. The majority ofcirculating Parvovirus B19 strains in the [facility] are genotype 1. Genotype 2 is not believed tocirculate widely in the [facility], but has beenassociated with similar clinical features as genotype1. Genotype 3 is most prevalent in some [place] [facility].This test was developed and its analyticalperformance characteristics have been determinedby [place], [place].It has not been cleared or approved by the FDA. Thisassay has been validated pursuant to the CLIAregulations and is used for clinical purposes.Test Performed at:[facility] [address] [id number] Benavides M.D., Ph.D.,Director of Laboratories Performed By: #### Y PRVP ####[facility] (DEFAULT)[address] [place] [address] UT SPEC SOURCE Whole Blood Normal [facility] Comment on above: Performed By: #### Y PRVP ####[facility] (DEFAULT)[address] [place] [address] ASPERGILLUS (GALACTOMANNAN), ANTIGENon 08-31-2023 Aspergillus Antigen <0.500 Normal <0.5 [facility] Comment on above: Result Comment: ---- ADDITIONAL INFORMATION This is a qualitative test and the resulted index value isnot indicative of disease severity. Serial testing isrecommended for patients at high risk for invasiveaspergillosis.This assay was performed using the FDA-cleared [employer] Aspergillus Galactomannan EIA.Test Performed by:[facility] [place], [place] [address]Gxr Director: Rosendo Bose M.D. Ph.D.; CLIA# [id number] Performed By: #### Y ASPR ####[facility] (DEFAULT)[address] [place] [address] CBC,PLATELETSon 08-31-2023 Erythrocyte distribution width (RBC) [Ratio] [...] [facility] RBC (Bld) [#/Vol] 4.63 10*6/uL [facility] WBC (Bld) [#/Vol] 4.77 10*3/uL 3.73 - 10. 10 K/uL [facility] Hematocrit (Bld) [Volume fraction] 39.4 % Low 39.6-48.8 [facility] Comment on above: Performed By: #### [place] [facility] [place] ####[facility] (DEFAULT)[address] [facility] [place] [address] Hemoglobin (Bld) [Mass/Vol] 12.8 g/dL Low 13.4-16.8 [facility] Comment on above: Performed By: #### H EMOGC ####[facility] (DEFAULT)[address] [facility] [place] [address] MCV (RBC) [Entitic vol] 85.1 fL Normal 79.0-94.5 [facility] Comment on above: Performed By: #### H EMOGC ####[facility] (DEFAULT)[address] [facility] [place] [address] Mean Cell Hgb 27.6 pg Normal 26.1-33.3 [facility] Comment on above: Performed By: #### H EMOGC ####[facility] (DEFAULT)[address] [facility] [place] [address] Mean Cell Hgb Conc 32.5 g/dL Normal 31.9-36.5 [facility] Comment on above: Performed By: #### H EMOGC ####[facility] (DEFAULT)[address] [facility] [place] [address] Platelet mean volume (Bld) [Entitic vol] 9.6 fL Normal 8.7-12.3 [facility] Comment on above: Performed By: #### H EMOGC ####[facility] (DEFAULT)[address] [facility] [place] [address] Platelets (Bld) [#/Vol] 228 10*3/uL Normal 146-337 [facility] Comment on above: Performed By: #### H EMOGC ####[facility] (DEFAULT)[address] [facility] [place] [address] RBC (Bld) [#/Vol] 4.63 10*6/uL Normal 4.38-5.83 [facility] Comment on above: Performed By: #### H EMOGC ####[facility] (DEFAULT)[address] [place] [address] RBC Distribution 13.3 % Normal 10.9-14.3 [facility] Comment on above: Performed By: #### [place] [facility] [place] ####[facility] (DEFAULT)[address] [place] [address] WBC (Bld) [#/Vol] 4.77 10*3/uL Normal 3.73-10.10 [facility] Comment on above: Performed By: #### [facility] [place] ####[facility] (DEFAULT)[address] [place] [address] CHEM 7 (LYTES,BUN,CREA,GLUC) on 08-31-2023 Anion gap [Moles/Vol] 13 mmol/L 7 - 17 mmol/L [facility] Chloride [Moles/Vol] 102 mmol/L 98 - 10 8 mmol[facility] CO2 [Moles/Vol] 23 mmol/L 21 - 31 mmol/L [facility] Creatinine [Mass/Vol] 1.37 mg/dL High 0.70 - 1.30 mg/dL [facility] eGFR, CKD-EPI, Male 62 - PINF [facility] Glucose [Mass/Vol] 112 mg/dL High 70 - 99 mg/dL [facility] Osmolality Calc [Osmolality] 284 [facility] Potassium [Moles/Vol] 4.4 mmol/L 3.5 - 5.0 mmol/L [facility] Sodium [Moles/Vol] 134 mmol/L Low 135 - 145 mmol/L [facility] Urea nitrogen [Mass/Vol] 16 mg/dL 7 - 25 mg/dL [facility] Urea nitrogen/Creatinine [Mass ratio] 12 mg/mg [facility] Anion gap [Moles/Vol] 13 mmol/L Normal 7-17 [facility] Comment on above: Performed By: #### M GO, CHM7, HFP, FERIB, PROCAL ####[facility] (DEFAULT)[address] [place] [address] Chloride [Moles/Vol] 102 mmol/L Normal 98-108 [facility] Comment on above: Performed By: #### M GO, CHM7, HFP, FERIB, PROCAL ####[facility] (DEFAULT)[address] [place] [address] CO2 [Moles/Vol] 23 mmol/L Normal 21-31 [facility] Comment on above: Performed By: #### M GO, CHM7, HFP, FERIB, PROCAL ####[facility] (DEFAULT)[address] [place] [address] Creatinine [Mass/Vol] 1.37 mg/dL High 0.70-1.30 [facility] Comment on above: Performed By: #### M GO, CHM7, HFP, FERIB, PROCAL ####[facility] (DEFAULT)[address] [facility] [place] [address] GFR/1.73 sq M.predicted among non-blacks MDRD (S/P/Bld) [Vol rate/Area] 62 mL/min/{1.73_m2} Normal >=60 [facility] Comment on above: Result Comment: Repo rted eGFR is based on the CKD-EPI 2020 equation using creatinine, age, and sex. Performed By: #### M GO, CHM7, HFP, FERIB, PROCAL ####[facility] (DEFAULT)[address] [facility] [place] [address] Glucose [Mass/Vol] 112 mg/dL High 70-99 [facility] Comment on above: Performed By: #### M GO, CHM7, HFP, FERIB, PROCAL ####[facility] (DEFAULT)[address] [place] [address] Osmolality [Osmolality] 284 mosm/kg Normal 278-305 [facility] Comment on above: Performed By: #### M GO, CHM7, HFP, FERIB, PROCAL ####[facility] (DEFAULT)[address] [place] [address] Potassium [Moles/Vol] 4.4 mmol/L Normal 3.5-5.0 [facility] Comment on above: Performed By: #### M GO, CHM7, HFP, FERIB, PROCAL ####[facility] (DEFAULT)[address] [place] [address] Sodium [Moles/Vol] 134 mmol/L Low 135-145 [facility] Comment on above: Performed By: #### M GO, CHM7, HFP, FERIB, PROCAL ####[facility] (DEFAULT)[address] [facility] [place] [address] Urea nitrogen [Mass/Vol] 16 mg/dL Normal 7-25 [facility] Comment on above: Performed By: #### M GO, CHM7, HFP, FERIB, PROCAL ####[facility] (DEFAULT)[address] [place] [address] Urea nitrogen/Creatinine [Mass ratio] 12 mg/mg Normal [facility] Comment on above: Performed By: #### M GO, CHM7, HFP, FERIB, PROCAL ####[facility] (DEFAULT)[address] [place] [address] CT ABDOMEN/PELVIS WITHOUT CO NTRASTon 08-31-2023 CT ABDOMEN/PELVIS WITHOUT CONTRAST Normal [facility] CT Abdomen and Pelvis WO con traston 08-31-2023 RADIOLOGY RADIOLOGY [facility] Radiology Study observation (narrative) [facility] CT Abdomen and Pelvis WO con trastOrdered By: Chavez Larkin on 08-31-2023 [facility] Work Phone: CT CHEST WITHOUT CONTRASTon 08-31-2023 CT CHEST WITHOUT CONTRAST Normal [facility] CT Chest WO contraston 08-31 RADIOLOGY RADIOLOGY [facility] Radiology Study observation (narrative) [facility] CT Chest WO contrastOrdered By: Daisha Patterson on 08-31-2023 [facility] Work Phone: FERRITINon 08-31-2023 Ferritin [Mass/Vol] 409.0 ng/mL High 10.5 - 3 07.3 ng/mL [facility] Interpretation and review of laboratory results Abnormal [facility] Ferritin [Mass/Vol] 409.0 ng/mL High 10.5-307.3 [facility] Comment on above: Performed By: #### M MERLE, CHM7, HFP, FERIB, PROCAL ####[facility] (DEFAULT)[address] [place] [address] HEPATIC FUNCTION PANELon Albumin [Mass/Vol] 3.3 g/dL [...] g/dL [facility] Albumin [Mass/Vol] 3.3 g/dL Low 3.5-5.0 [facility] Comment on above: Performed By: #### M MERLE, CHM7, HFP, FERIB, PROCAL ####[facility] (DEFAULT)[address] [place] [address] ALP [Catalytic activity/Vol] 113 U/L Normal 32-126 [facility] Comment on above: Performed By: #### M GO, CHM7, HFP, FERIB, PROCAL ####[facility] (DEFAULT)[address] [place] [address] ALT [Catalytic activity/Vol] 25 U/L Normal 10-52 [facility] Comment on above: Performed By: #### M GO, CHM7, HFP, FERIB, PROCAL ####[facility] (DEFAULT)[address] [place] [address] AST [Catalytic activity/Vol] 31 U/L Normal 10-39 [facility] Comment on above: Performed By: #### M GO, CHM7, HFP, FERIB, PROCAL ####[facility] (DEFAULT)[address] [place] [address] Bilirubin [Mass/Vol] 1.1 mg/dL Normal <1.5 [facility] Comment on above: Performed By: #### M GO, CHM7, HFP, FERIB, PROCAL ####[facility] (DEFAULT)[address] [place] [address] Bilirubin.indirect [Mass/Vol] 0.3 mg/dL High <0.3 [facility] Comment on above: Performed By: #### M GO, CHM7, HFP, FERIB, PROCAL ####[facility] (DEFAULT)[address] [place] [address] Protein [Mass/Vol] 7.0 g/dL Normal 6.4-8.3 [facility] Comment on above: Performed By: #### M GO, CHM7, HFP, FERIB, PROCAL ####[facility] (DEFAULT)[address] [place] [address] LEGIONELLA URINARY AGon 10- Legionella Urinary Antigen Negative Normal Negative [facility] Comment on above: Performed By: #### L EGION ####[facility] (DEFAULT)[address] [place] [address] MAGNESIUMon 08-31-2023 Interpretation and review of laboratory results Normal [facility] Magnesium [Mass/Vol] 1.7 mg/dL 1.6 - 2 .6 mg/dL [facility] Magnesium [Mass/Vol] 1.7 mg/dL Normal 1.6-2.6 [facility] Comment on above: Performed By: #### M MERLE, CHM7, HFP, FERIB, PROCAL ####[facility] (DEFAULT)[address] [place] [address] No Panel Informationon 08-31 Interpretation and review of laboratory results Abnormal [facility] PROCALCITONINon 08-31-2023 Interpretation and review of laboratory results Normal [facility] Procalcitonin [Mass/Vol] 0.23 ng/mL NINF - 0.50 ng/mL [facility] Procalcitonin 0.23 ng/mL Normal <0.50 [facility] Comment on above: Result Comment: [...] and trend procalcitonin in various clinical settings. [email or web address]/[email or web address]?[email or web address]=/[email or web address]/[email or web address]/[email or web address] [email or web address]&action=[email or web address]=1Two common cutoffs associated with bacterial infections are as follows.Respiratory tract infections: >0.25 ng/mLSepsis/septic shock: >0.5 ng/mLProcalcitonin should not be used alone as a diagnostic tool, however. All procalcitonin results should be interpreted in association with the patients clinical condition and all laboratory findings. Performed By: #### M MERLE, CHM7, HFP, FERIB, PROCAL ####[facility] (DEFAULT)[address] [place] [address] TACROLIMUS LEVEL, TROUGH (UT E DRUG LEVEL)Ordered By: Yanira Marcum on 08-31-2023 Interpretation and review of laboratory results Normal [facility] Tacrolimus (Bld) [Mass/Vol] 5.9 ng/mL [facility] TACROLIMUS LEVEL, TROUGH (UT E DRUG LEVEL)on 08-31-2023 Tacrolimus, Trough 5.9 ng/mL Normal Bone Susana ow Transplant: 4.0-12.0, Therapeutic: 5.0-15.0 [facility] Comment on above: Order Comment: Pleas e draw at specified interval PRIOR to dose. Do not hold dose to wait for level. Specimens batched twice per day, (M-) and once per day weekendsMethod performed is a chemiluminescent microparticle immunoasssay on the [employer] Manager i2000.The range is based on experience at [facility] and users should be aware that target concentrations vary widely depending on concomitant therapy, time post-transplant, and desired degree of immunosuppression. Performed By: #### T ACRO ####[facility] (DEFAULT)[address] [place] [address] URINE CULTUREOrdered By: Jorge Lozano on 08-31-2023 Bacteria identified Cx Nom (Unsp spec) No Growth [facility] DARYL AURIS SCREEN BY PCRO rdered By: Mynor Alejandro on 08-30-2023 Daryl auris Screen by PCR Not detected Not Detected [facility] Interpretation and review of laboratory results Normal [facility] CBC,PLATELETSon 08-30-2023 Erythrocyte distribution width (RBC) [...] [facility] RBC (Bld) [#/Vol] 4.83 10*6/uL [facility] WBC (Bld) [#/Vol] 4.96 10*3/uL 3.73 - 10. 10 K/uL [facility] Hematocrit (Bld) [Volume fraction] 41.3 % Normal 39.6-48.8 [facility] Comment on above: Performed By: #### [place] [facility] [place] ####[facility] (DEFAULT)[address] [place] [address] Hemoglobin (Bld) [Mass/Vol] 13.2 g/dL Low 13.4-16.8 [facility] Comment on above: Performed By: #### H EMO ####[facility] (DEFAULT)[address] [place] [address] MCV (RBC) [Entitic vol] 85.5 fL Normal 79.0-94.5 [facility] Comment on above: Performed By: #### H EMOGC ####[facility] (DEFAULT)[address] [place] [address] Mean Cell Hgb 27.3 pg Normal 26.1-33.3 [facility] Comment on above: Performed By: #### H EMOGC ####[facility] (DEFAULT)[address] [place] [address] Mean Cell Hgb Conc 32.0 g/dL Normal 31.9-36.5 [facility] Comment on above: Performed By: #### H EMO ####[facility] (DEFAULT)[address] [facility] [place] [address] Platelet mean volume (Bld) [Entitic vol] 9.2 fL Normal 8.7-12.3 [facility] Comment on above: Performed By: #### H EMOGC ####[facility] (DEFAULT)[address] [place] [address] Platelets (Bld) [#/Vol] 235 10*3/uL Normal 146-337 [facility] Comment on above: Performed By: #### H EMO ####[facility] (DEFAULT)[address] [place] [address] RBC (Bld) [#/Vol] 4.83 10*6/uL Normal 4.38-5.83 [facility] Comment on above: Performed By: #### H EMO ####[facility] (DEFAULT)[address] [facility] [place] [address] RBC Distribution 13.3 % Normal 10.9-14.3 [facility] Comment on above: Performed By: #### H EMOGC ####[facility] (DEFAULT)[address] [place] [address] WBC (Bld) [#/Vol] 4.96 10*3/uL Normal 3.73-10.10 [facility] Comment on above: Performed By: #### H EMOGC ####[facility] (DEFAULT)[address] [place] [address] CHEM 7 (LYTES,BUN,CREA,GLUC) on 08-30-2023 Anion gap [...] CKD-EPI, Male 54 Low - PINF [facility] Glucose [Mass/Vol] 123 mg/dL High 70 - 99 mg/dL [facility] Osmolality Calc [Osmolality] 281 [facility] Potassium [Moles/Vol] 4.3 mmol/L 3.5 - 5.0 mmol/L [facility] Sodium [Moles/Vol] 132 mmol/L Low 135 - 145 mmol/L [facility] Urea nitrogen [Mass/Vol] 16 mg/dL 7 - 25 mg/dL [facility] Urea nitrogen/Creatinine [Mass ratio] 10 mg/mg [facility] Anion gap [Moles/Vol] 14 mmol/L Normal 7-17 [facility] Comment on above: Performed By: #### NATHANIEL RAMÍREZ, HFP ####[facility] (DEFAULT)[address] [place] [address] Chloride [Moles/Vol] 102 mmol/L Normal 98-108 [facility] Comment on above: Performed By: #### NATHANIEL RAMÍREZ, HFP ####[facility] (DEFAULT)[address] [facility] [place] [address] CO2 [Moles/Vol] 20 mmol/L Low 21-31 [facility] Comment on above: Performed By: #### NATHANIEL RAMÍREZ, HFP ####[facility] (DEFAULT)[address] [place] [address] Creatinine [Mass/Vol] 1.56 mg/dL High 0.70-1.30 [facility] Comment on above: Performed By: #### NATHANIEL RAMÍREZ, HFP ####[facility] (DEFAULT)[address] [place] [address] GFR/1.73 sq M.predicted among non-blacks MDRD (S/P/Bld) [Vol rate/Area] 53 mL/min/{1.73_m2} Low >=60 [facility] Comment on above: Result Comment: Repo rted eGFR is based on the CKD-EPI 2020 equation using creatinine, age, and sex. Performed By: #### NATHANIEL RAMÍREZ, HFP ####[facility] (DEFAULT)[address] [place] [address] Glucose [Mass/Vol] 123 mg/dL High 70-99 [facility] Comment on above: Performed By: #### NATHANIEL RAMÍREZ, HFP ####[facility] (DEFAULT)[address] [place] [address] Osmolality [Osmolality] 281 mosm/kg Normal 278-305 [facility] Comment on above: Performed By: #### NATHANIEL RAMÍREZ, HFP ####[facility] (DEFAULT)[address] [place] [address] Potassium [Moles/Vol] 4.3 mmol/L Normal 3.5-5.0 [facility] Comment on above: Performed By: #### NATHANIEL RAMÍREZ, HFP ####[facility] (DEFAULT)[address] [place] [address] Sodium [Moles/Vol] 132 mmol/L Low 135-145 [facility] Comment on above: Performed By: #### NATHANIEL RAMÍREZ, HFP ####[facility] (DEFAULT)[address] [place] [address] Urea nitrogen [Mass/Vol] 16 mg/dL Normal 7-25 [facility] Comment on above: Performed By: #### NATHANIEL RAMÍREZ, HFP ####[facility] (DEFAULT)[address] [place] [address] Urea nitrogen/Creatinine [Mass ratio] 10 mg/mg Normal [facility] Comment on above: Performed By: #### NATHANIEL RAMÍREZ, HFP ####[facility] (DEFAULT)[address] [place] [address] EXTRA MICROon 08-30-2023 [facility] [...] g/dL [facility] Albumin [Mass/Vol] 3.7 g/dL Normal 3.5-5.0 [facility] Comment on above: Performed By: #### NATHANIEL RAMÍREZ, HFP ####[facility] (DEFAULT)[address] [place] [address] ALP [Catalytic activity/Vol] 115 U/L Normal 32-126 [facility] Comment on above: Performed By: #### NATHANIEL RAMÍREZ, HFP ####[facility] (DEFAULT)[address] [facility] [place] [address] ALT [Catalytic activity/Vol] 22 U/L Normal 10-52 [facility] Comment on above: Performed By: #### NATHANIEL RAMÍREZ, HFP ####[facility] (DEFAULT)[address] [facility] [place] [address] AST [Catalytic activity/Vol] 34 U/L Normal 10-39 [facility] Comment on above: Performed By: #### NATHANIEL RAMÍREZ, HFP ####[facility] (DEFAULT)[address] [place] [address] Bilirubin [Mass/Vol] 1.2 mg/dL Normal <1.5 [facility] Comment on above: Performed By: #### TJ RAMÍREZ7, HFP ####[facility] (DEFAULT)[address] [place] [address] Bilirubin.indirect [Mass/Vol] 0.3 mg/dL High <0.3 [facility] Comment on above: Performed By: #### TJ RAMÍREZ7, HFP ####[facility] (DEFAULT)[address] [place] [address] Protein [Mass/Vol] 7.7 g/dL Normal 6.4-8.3 [facility] Comment on above: Performed By: #### Rod BLOOM CHM7, HFP ####[facility] (DEFAULT)[address] [place] [address] MAGNESIUMon 08-30-2023 Interpretation and review of laboratory results Normal [facility] Magnesium [Mass/Vol] 1.8 mg/dL 1.6 - 2 .6 mg/dL [facility] Magnesium [Mass/Vol] 1.8 mg/dL Normal 1.6-2.6 [facility] Comment on above: Performed By: #### Rod BLOOM CHM7, HFP ####[facility] (DEFAULT)[address] [place] [address] No Panel Informationon 08-30 Interpretation and review of laboratory results Abnormal [facility] CBC,PLATELETSon 08-29-2023 Erythrocyte distribution width (RBC) [Ratio] [...] [facility] RBC (Bld) [#/Vol] 4.42 10*6/uL [facility] WBC (Bld) [#/Vol] 4.92 10*3/uL 3.73 - 10. 10 K/uL [facility] Hematocrit (Bld) [Volume fraction] 37.6 % Low 39.6-48.8 [facility] Comment on above: Performed By: #### [place] [facility] [place] ####[facility] (DEFAULT)[address] [place] [address] Hemoglobin (Bld) [Mass/Vol] 12.2 g/dL Low 13.4-16.8 [facility] Comment on above: Performed By: #### H [facility] [place] ####[facility] (DEFAULT)[address] [place] [address] MCV (RBC) [Entitic vol] 85.1 fL Normal 79.0-94.5 [facility] Comment on above: Performed By: #### [place] [facility] [place] ####[facility] (DEFAULT)[address] [place] [address] Mean Cell Hgb 27.6 pg Normal 26.1-33.3 [facility] Comment on above: Performed By: #### H [facility] [place] ####[facility] (DEFAULT)[address] [place] [address] Mean Cell Hgb Conc 32.4 g/dL Normal 31.9-36.5 [facility] Comment on above: Performed By: #### H EMO ####[facility] (DEFAULT)[address] [place] [address] Platelet mean volume (Bld) [Entitic vol] 9.4 fL Normal 8.7-12.3 [facility] Comment on above: Performed By: #### H EMO ####[facility] (DEFAULT)[address] [place] [address] Platelets (Bld) [#/Vol] 233 10*3/uL Normal 146-337 [facility] Comment on above: Performed By: #### H EMO ####[facility] (DEFAULT)[address] [place] [address] RBC (Bld) [#/Vol] 4.42 10*6/uL Normal 4.38-5.83 [facility] Comment on above: Performed By: #### H EMO ####[facility] (DEFAULT)[address] [place] [address] RBC Distribution 13.4 % Normal 10.9-14.3 [facility] Comment on above: Performed By: #### H EMO ####[facility] (DEFAULT)[address] [place] [address] WBC (Bld) [#/Vol] 4.92 10*3/uL Normal 3.73-10.10 [facility] Comment on above: Performed By: #### H EMO ####[facility] (DEFAULT)[address] [place] [address] CHEM 7 (LYTES,BUN,CREA,GLUC) on 08-29-2023 Anion gap [...] eGFR, CKD-EPI, Male 55 Low - [facility] Glucose [Mass/Vol] 108 mg/dL High 70 - 99 mg/dL [facility]ality] [facility] Potassium [Moles/Vol] 4.5 mmol/L 3.5 - 5.0 mmol/L [facility] Sodium [Moles/Vol] 133 mmol/L Low 135 - 145 mmol/L [facility] Urea nitrogen [Mass/Vol] 19 mg/dL 7 - 25 mg/dL [facility] Urea nitrogen/Creatinine [Mass ratio] 12 mg/mg [facility] Anion gap [Moles/Vol] 13 mmol/L Normal 7-17 [facility] Comment on above: Performed By: #### H FP, GGTB, MGO, CHM7 ####[facility] (DEFAULT)[address] [place] [address] Chloride [Moles/Vol] 105 mmol/L Normal 98-108 [facility] Comment on above: Performed By: #### H FP, GGTB, MGO, CHM7 ####[facility] (DEFAULT)[address] [place] [address] CO2 [Moles/Vol] 20 mmol/L Low 21-31 [facility] Comment on above: Performed By: #### H FP, GGTB, MGO, CHM7 ####[facility] (DEFAULT)[address] [place] [address] Creatinine [Mass/Vol] 1.55 mg/dL High 0.70-1.30 [facility] Comment on above: Performed By: #### H FP, GGTB, MGO, CHM7 ####[facility] (DEFAULT)[address] [place] [address] [place] [address] GFR/1.73 sq M.predicted among non-blacks MDRD (S/P/Bld) [Vol rate/Area] 54 mL/min/{1.73_m2} Low >=60 [facility] Comment on above: Result Comment: Repo rted eGFR is based on the CKD-EPI 2020 equation using creatinine, age, and sex. Performed By: #### H FP, GGTB, MGO, CHM7 ####[facility] (DEFAULT)[address] [place] [address] Glucose [Mass/Vol] 108 mg/dL High 70-99 [facility] Comment on above: Performed By: #### H FP, GGTB, MGO, CHM7 ####[facility] (DEFAULT)[address] [place] [address], [place] [address] Osmolality [Osmolality] 283 mosm/kg Normal 278-305 [facility] Comment on above: Performed By: #### H FP, GGTB, MGO, CHM7 ####[facility] (DEFAULT)[address] [place] [address], [place] [address] Potassium [Moles/Vol] 4.5 mmol/L Normal 3.5-5.0 [facility] Comment on above: Performed By: #### H FP, GGTB, MGO, CHM7 ####[facility] (DEFAULT)[address] [place] [address], [place] [address] Sodium [Moles/Vol] 133 mmol/L Low 135-145 [facility] Comment on above: Performed By: #### H FP, GGTB, MGO, CHM7 ####[facility] (DEFAULT)[address] [place] [address] Urea nitrogen [Mass/Vol] 19 mg/dL Normal 7-25 [facility] Comment on above: Performed By: #### H FP, GGTB, MGO, CHM7 ####[facility] (DEFAULT)[address] [place] [address] Urea nitrogen/Creatinine [Mass ratio] 12 mg/mg Normal [facility] Comment on above: Performed By: #### H FP, GGTB, MGO, CHM7 ####[facility] (DEFAULT)[address] [place] [address] GGTon 08-29-2023 Gamma glutamyl transferase [Catalytic activity/Vol] 64 U/L 8 - 64 U/L [facility] Interpretation and review of laboratory results Normal [facility] Gamma glutamyl transferase [Catalytic activity/Vol] 64 U/L Normal 8-64 [facility] Comment on above: Performed By: #### H FP, GGTB, MGO, CHM7 ####[facility] (DEFAULT)[address] [place] [address] HEPATIC FUNCTION PANELon Albumin [Mass/Vol] 3.3 g/dL Low 3.5 - 5.0 g/dL [facility] ALP [Catalytic activity/Vol] 103 U/L 32 - 126 U/L [facility] ALT [Catalytic activity/Vol] 18 U/L 10 - 52 U/L [facility] AST [Catalytic activity/Vol] 27 U/L 10 - 39 U/L [facility] Bilirubin [Mass/Vol] 1.1 mg/dL [facility] - 1.5 mg/dL [facility] Bilirubin.direct [Mass/Vol] 0.3 mg/dL High NINF - 0.3 mg/dL [facility] Protein [Mass/Vol] 6.8 g/dL 6.4 - 8.3 g/dL [facility] Albumin [Mass/Vol] 3.3 g/dL Low 3.5-5.0 [facility] Comment on above: Performed By: #### H FP, GGTB, MGO, CHM7 ####[facility] (DEFAULT)[address] [place] [address] ALP [Catalytic activity/Vol] 103 U/L Normal 32-126 [facility] Comment on above: Performed By: #### H FP, GGTB, MGO, CHM7 ####[facility] (DEFAULT)[address] [place] [address] ALT [Catalytic activity/Vol] 18 U/L Normal 10-52 [facility] Comment on above: Performed By: #### H FP, GGTB, MGO, CHM7 ####[facility] (DEFAULT)[address] [place] [address] AST [Catalytic activity/Vol] 27 U/L Normal 10-39 [facility] Comment on above: Performed By: #### H FP, GGTB, MGO, CHM7 ####[facility] (DEFAULT)[address] [place] [address] Bilirubin [Mass/Vol] 1.1 mg/dL Normal <1.5 [facility] Comment on above: Performed By: #### H FP, GGTB, MGO, CHM7 ####[facility] (DEFAULT)[address] [place] [address] Bilirubin.indirect [Mass/Vol] 0.3 mg/dL High <0.3 [facility] Comment on above: Performed By: #### H FP, GGTB, MGO, CHM7 ####[facility] (DEFAULT)[address] [place] [address] Protein [Mass/Vol] 6.8 g/dL Normal 6.4-8.3 [facility] Comment on above: Performed By: #### H FP, GGTB, MGO, CHM7 ####[facility] (DEFAULT)[address] [place] [address] HISTOPLASMA AND BLASTOMYCES ANTIGEN, ENZYME IMMUNOASSAY, SERMon 08-29-2023 Histoplasma/Blastomy antonia Ag Result Detected Invalid Interpretation Code Not Detected [facility] Comment on above: Result Comment: Anti gen from Histoplasma or Blastomyces (unable todifferentiate) detected. Result should be correlated withclinical presentation, exposure history, and otherdiagnostic procedures, including culture, serology,histopathology, and/or radiographic findings, to aid in thedifferentiation between histoplasmosis and blastomycosis.CRITICAL RESULT Performed By: #### H IBAG ####[facility] (DEFAULT)[address] [place] [address], [place] [address] Histoplasma/Blastomy antonia Ag Value 5.3 ng/mL Normal [facility] Comment on above: Result Comment: ---- ADDITIONAL INFORMATION This test was developed and its performance characteristicsdetermined by [facility] in a manner consistent with CLIArequirements. This test has not been cleared or approved bythe U.S. Food and Drug Administration.Test Performed by:[address] Director: Rosendo Bose M.D. Ph.D.; CLIA# [id number] Performed By: #### H IBAG ####[facility] (DEFAULT)[address] [place] [address], [place] [address] HISTOPLASMA ANTIGEN,URINEon 08-29-2023 HISTOPLASM AG, URINE Not detected Normal Not Detected [facility] Comment on above: Result Comment: No H istoplasma antigen detected.False negative results may occur. Repeat testing on anew specimen should be considered if clinically indicated. Performed By: #### Y HISTG ####[facility] (DEFAULT)[address] [place] [address], [place] [address] Histoplasma Ag Value Not detected Normal [facility] Comment on above: Result Comment: ---- ADDITIONAL INFORMATION This test has been modified from the evaporative cooler installer'sinstructions. Its performance characteristics weredetermined by [facility] in a manner consistent withCLIA requirements. This test has not been cleared orapproved by the U.S. Food and Drug Administration.Test Performed by:[facility] [place], [place] [address]Jxj Director: Rosendo Bose M.D. Ph.D.; CLIA# [id number] Performed By: #### Y HISTG ####[facility] (DEFAULT)[address] [place] [address] MAGNESIUMon 08-29-2023 Interpretation and review of laboratory results Normal [facility] Magnesium [Mass/Vol] 1.7 mg/dL 1.6 - 2 .6 mg/dL [facility] Magnesium [Mass/Vol] 1.7 mg/dL Normal 1.6-2.6 [facility] Comment on above: Performed By: #### H FP, GGTB, MGO, CHM7 ####[facility] (DEFAULT)[address] [place] [address] No Panel Informationon 08-29 Interpretation and review of laboratory results Abnormal [facility] PT,INR,PTTon 08-29-2023 aPTT Coag (PPP) [Time] 29.3 s [facility] INR Coag (Bld) [Relative time] 1.1 {INR} 0.9 - 1.1 [facility] Interpretation and review of laboratory results Normal [facility] PT Coag (PPP) [Time] 13.8 s [facility] aPTT Coag (Bld) [Time] 29.3 s Normal 24.0-34.3 [facility] Comment on above: Performed By: #### P TPTT ####[facility] (DEFAULT)[address] [place] [address] INR Coag (PPP) [Relative time] 1.1 {INR} Normal 0.9-1.1 [facility] Comment on above: Performed By: #### P TPTT ####[facility] (DEFAULT)[address] [place] [address] PT Coag (PPP) [Time] 13.8 s Normal 11.9-14.2 [facility] Comment on above: Performed By: #### P TPTT ####[facility] (DEFAULT)[address] [place] [address] Portable XR Chest Viewson RADIOLOGY RADIOLOGY [facility] Portable XR Chest ViewsOrder ed By: Gerald Baer on 08-29-2023 [facility] Work Phone: TACROLIMUS LEVEL, TROUGH (UT E DRUG LEVEL)on 08-29-2023 Interpretation and review of laboratory results Normal [facility] Tacrolimus (Bld) [Mass/Vol] 8.9 ng/mL [facility] Tacrolimus, Trough 8.9 ng/mL Normal [facility] Susana ow Transplant: 4.0-12.0, Therapeutic: 5.0-15.0 [facility] Comment on above: Order Comment: Pleas e draw at specified interval PRIOR to dose. Do not hold dose to wait for level. Specimens batched twice per day, (M-F) and once per day weekendsMethod performed is a chemiluminescent microparticle immunoasssay on the [employer] i2000.The range is based on experience at [facility] and users should be aware that target concentrations vary widely depending on concomitant therapy, time post-transplant, and desired degree of immunosuppression. Performed By: #### T ACRO ####[facility] (DEFAULT)[address] [place] [address] Tacrolimus, Trough 8.7 ng/mL Normal [facility] Transplant: 4.0-12.0, Therapeutic: 5.0-15.0 [facility] Comment on above: Order Comment: Pleas e draw at specified interval PRIOR to dose. Do not hold dose to wait for level. Specimens batched twice per day, (M-F) and once per day weekendsMethod performed is a chemiluminescent microparticle immunoasssay on the [employer] i2000.The range is based on experience at [facility] and users should be aware that target concentrations vary widely depending on concomitant therapy, time post-transplant, and desired degree of immunosuppression. Performed By: #### T ACRO ####[facility] (DEFAULT)[address] [place] [address] TACROLIMUS LEVEL, TROUGH (UT E DRUG LEVEL)Ordered By: Roxanne Louie on 08-29-2023 Interpretation and review of laboratory results Normal [facility] Tacrolimus (Bld) [Mass/Vol] 8.7 ng/mL [facility] URINALYSIS REFLEX TO CULTURE PERFORMABLEOrdered By: Shaji Kelly on 08-29-2023 Appearance (U) Clear Clear [facility] Bacteria LM Ql (Urine sed) ABSENT ABSENT [facility] Calcium Oxalate Crystals PRESENT [facility] Color (U) Yellow Yellow [facility] Epithelial cells.squamous LM Ql (Urine sed) 0-2/hpf 0-2/hpf, 3-5/hpf = 1+ [facility] Glucose Test strip (U) [Mass/Vol] Negative Negative [facility] Interpretation and review of laboratory results Abnormal [facility] Ketones (U) [Mass/Vol] Negative Negative [facility] Leukocyte esterase Test strip Ql (U) Negative Negative [facility] Nitrite Ql (U) Negative Negative [facility] pH (U) 6.0 [pH] 5.0 - 7.0 [facility] Protein (U) [Mass/Vol] Negative Negative [facility] RBC (U) [#/Vol] Trace Abnormal Negative [facility] RBC LM.HPF (Urine sed) [#/Area] 3-5 Abnormal [facility] Specific gravity (U) [Rel density] 1.015 1.001 - 1.035 [facility] Urobilinogen (U) [Mass/Vol] 1.0 E.U./dL 0.2 E.U/dL, 1.0 E.U/dL [facility] WBC LM.HPF (Urine sed) [#/Area] 0 - 5 [facility] URINALYSIS REFLEX TO CULTURE PERFORMABLEon 08-29-2023 Appearance (U) Clear Normal Clear [facility] Comment on above: Order Comment: For i ndwelling catheters, specimen collection is acceptable on catheter day 1 and 2 only. ? Performed By: #### U [id number] ####[facility] (DEFAULT)[address] [place] [address] Bacteria ABSENT Normal ABSENT [facility] Comment on above: Order Comment: For i ndwelling catheters, specimen collection is acceptable on catheter day 1 and 2 only. ? Performed By: #### U [id number] ####[facility] (DEFAULT)[address] [facility] [place] [address] Blood Urine Trace Abnormal Negative [facility] Comment on above: Order Comment: For i ndwelling catheters, specimen collection is acceptable on catheter day 1 and 2 only. ? Performed By: #### U [id number] ####[facility] (DEFAULT)[address] [place] [address] Calcium Oxalate Crystals PRESENT Normal [facility] Comment on above: Order Comment: For i ndwelling catheters, specimen collection is acceptable on catheter day 1 and 2 only. ? Performed By: #### U [id number] ####[facility] (DEFAULT)[address] [place] [address] Color (U) Yellow Normal Yellow [facility] Comment on above: Order Comment: For i ndwelling catheters, specimen collection is acceptable on catheter day 1 and 2 only. ? Performed By: #### U [id number] ####[facility] (DEFAULT)[address] [facility] [place] [address] Glucose Ql (U) Negative Normal Negative [facility] Comment on above: Order Comment: For i ndwelling catheters, specimen collection is acceptable on catheter day 1 and 2 only. ? Performed By: #### U [id number] ####[facility] (DEFAULT)[address] [place] [address] Ketones Ql (U) Negative Normal Negative [facility] Comment on above: Order Comment: For i ndwelling catheters, specimen collection is acceptable on catheter day 1 and 2 only. ? Performed By: #### U [id number] ####[facility] (DEFAULT)[address] [facility] [place] [address] Leukocyte esterase Test strip Ql (U) Negative Normal Negative [facility] Comment on above: Order Comment: For i ndwelling catheters, specimen collection is acceptable on catheter day 1 and 2 only. ? Performed By: #### U [id number] ####[facility] (DEFAULT)[address] [place] [address], [place] [address] Nitrites Urine Negative Normal Negative [facility] Comment on above: Order Comment: For i ndwelling catheters, specimen collection is acceptable on catheter day 1 and 2 only. ? Performed By: #### U [id number] ####[facility] (DEFAULT)[address] [place] [address], [place] [address] pH (U) 6.0 [pH] Normal 5.0-7.0 [facility] Comment on above: Order Comment: For i ndwelling catheters, specimen collection is acceptable on catheter day 1 and 2 only. ? Performed By: #### U [id number] ####[facility] (DEFAULT)[address] [facility] [place] [address] Protein Urine Negative Normal Negative [facility] Comment on above: Order Comment: For i ndwelling catheters, specimen collection is acceptable on catheter day 1 and 2 only. ? Performed By: #### U [id number] ####[facility] (DEFAULT)[address] [place], [place] [address], [place] [address] RBC Urine 3-5 Abnormal 0-2 [facility] Comment on above: Order Comment: For i ndwelling catheters, specimen collection is acceptable on catheter day 1 and 2 only. ? Performed By: #### U [id number] ####[facility] (DEFAULT)[address] [facility] [place] [address] Specific [place] Urine 1.015 Normal 1.001-1.035 [facility] Comment on above: Order Comment: For i ndwelling catheters, specimen collection is acceptable on catheter day 1 and 2 only. ? Performed By: #### U [id number] ####[facility] (DEFAULT)[address] [place] [address] Squamous/Epithelial Cells 0-2/hpf Normal 0-2/hpf, 3-5/hpf = 1+ [facility] Comment on above: Order Comment: For i ndwelling catheters, specimen collection is acceptable on catheter day 1 and 2 only. ? Performed By: #### U [id number] ####[facility] (DEFAULT)[address] [place] [address] Urobilinogen Urine 1.0 E.U./dL Normal 0.2 E.U/d L, 1.0 E.U/dL [facility] Comment on above: Order Comment: For i ndwelling catheters, specimen collection is acceptable on catheter day 1 and 2 only. ? Performed By: #### U [id number] ####[facility] (DEFAULT)[address] [place] [address], [place] [address] WBC Urine 0 - 5 Normal 0 - 5 [facility] Comment on above: Order Comment: For i ndwelling catheters, specimen collection is acceptable on catheter day 1 and 2 only. ? Performed By: #### U [id number] ####[facility] (DEFAULT)[address] [place] [address], [place] [address] URINE CULTUREon 08-29-2023 Bacteria identified Cx Nom (U) No Growth Normal [facility] Comment on above: Order Comment: For i ndwelling catheters, specimen collection is acceptable on catheter day 1 and 2 only. Sung top vacutainer. Urine must be to the fill line to process (4mls). If minimum volume, send urine in a yellow top vacutainer tube. Performed By: #### U R ####[facility] (DEFAULT)[address] [facility] [place] [address] US RENAL TRANSPLANT SCANon 0 08-29-2023 US RENAL TRANSPLANT SCAN Normal [facility] US for transplanted kidney l imitedon 08-29-2023 RADIOLOGY RADIOLOGY [facility] Radiology Study observation (narrative) [facility] US for transplanted kidney l imitedOrdered By: Romana Matias on 08-29-2023 [facility] Work Phone: XR CHEST PORTABLEon 08-29-20 23 XR CHEST PORTABLE Normal [facility] BLOOD CULTUREon 08-28-2023 Bacteria identified Cx Nom (Unsp spec) NO GROWTH DAY 5 OF 5 Normal [facility] Comment on above: Order Comment: 2 Bot tles (1 Set - consists of 1 Aerobic bottle and 1 Anaerobic bottle) -1st Peripheral DrawFor syringe method draw:If able to obtain adequate sample (20 ml) inoculate anaerobic bottle firstIf inadequate sample obtained (less than 20 ml) inoculate aerobic bottle firstFor vacutainer method draw: Fill aerobic bottle first, then anaerobic Performed By: #### B LDCULT ####[facility] (DEFAULT)[address] [place] [address] Bacteria identified Cx Nom (Unsp spec) NO GROWTH DAY 5 OF 5 Normal [facility] Comment on above: Order Comment: 2 Bot tles (1 Set - consists of 1 Aerobic bottle and 1 Anaerobic bottle) -1st Peripheral DrawFor syringe method draw:If able to obtain adequate sample (20 ml) inoculate anaerobic bottle firstIf inadequate sample obtained (less than 20 ml) inoculate aerobic bottle firstFor vacutainer method draw: Fill aerobic bottle first, then anaerobic Performed By: #### B LDCULT ####[facility] (DEFAULT)[address] [place] [address] DARYL AURIS SCREEN BY PCRo n 08-28-2023 Daryl auris Screen by PCR Not detected Normal Not Detected [facility] Comment on above: Order Comment: This test was performed using a real-time PCR assay. This test was developed, and its performance characteristics determined by [facility]. It has not been cleared or approved by the FDA. The laboratory is regulated under CLIA as qualified to perform high-complexity testing. This test is used for clinical purposes. It should not be regarded as investigational or for research. Performed By: #### C ANDIDA AURIS SCREEN BY PCR ####[facility] (DEFAULT)[address] [place] [address] CBC AND ELECTRONIC DIFFon Basophils (Bld) [#/Vol] K/uL 0.00 - 0.09 K/uL [facility] Basophils/100 WBC (Bld) 0.6 % [facility] Differential cell count method Nom (Bld) Electronic Differential [facility] Eosinophils (Bld) [#/Vol] 0.10 10*3/uL 0.00 [...] (Bld) [Ratio] 0.0 % NINF [facility] Platelet mean volume (Bld) [Entitic vol] 9.3 fL 8.7 - 12.3 fL [facility] Platelets (Bld) [#/Vol] 262 10*3/uL 146 - 337 K/uL [facility] RBC (Bld) [#/Vol] 4.46 10*6/uL [facility] Segmented neutrophils/100 WBC (Bld) 45.7 % [facility] WBC (Bld) [#/Vol] 4.74 10*3/uL 3.73 - 10. 10 K/uL [facility] Abs Baso Auto < Normal 0.00-0.09 [facility] Comment on above: Performed By: #### L [id number] ####[facility] (DEFAULT)[address] [place] [address] Basophils/100 WBC (Bld) 0.6 % Normal [facility] Comment on above: Performed By: #### L [id number] ####[facility] (DEFAULT)[address] [place] [address] DIFF STATUS Electronic Differential Normal [facility] Comment on above: Performed By: #### L [id number] ####[facility] (DEFAULT)[address] [place] [address] Eosinophils (Bld) [#/Vol] 0.10 10*3/uL Normal 0.00-0.48 [facility] Comment on above: Performed By: #### L [id number] ####[facility] (DEFAULT)[address] [place] [address] Eosinophils/100 WBC (Bld) 2.1 % Normal [facility] Comment on above: Performed By: #### L [id number] ####[facility] (DEFAULT)[address] [place] [address] Hematocrit (Bld) [Volume fraction] 37.9 % Low 39.6-48.8 [facility] Comment on above: Performed By: #### L [id number] ####[facility] (DEFAULT)[address] [place] [address] Hemoglobin (Bld) [Mass/Vol] 12.4 g/dL Low 13.4-16.8 [facility] Comment on above: Performed By: #### L [id number] ####[facility] (DEFAULT)[address] [place] [address], [place] [address] Immature Grans % 0.6 % Normal [facility] Comment on above: Performed By: #### L [id number] ####[facility] (DEFAULT)[address] [place] [address], [place] [address] Immature Grans Absolute < Normal <=0.07 [facility] Comment on above: Performed By: #### L [id number] ####[facility] (DEFAULT)[address] [place] [address], [place] [address] Lymphocytes (Bld) [#/Vol] 1.76 10*3/uL Normal 0.83-3.57 [facility] Comment on above: Performed By: #### L [id number] ####[facility] (DEFAULT)[address] [place] [address] Lymphocytes/100 WBC (Bld) 37.1 % Normal [facility] Comment on above: Performed By: #### L [id number] ####[facility] (DEFAULT)[address] [place] [address], [place] [address] MCV (RBC) [Entitic vol] 85.0 fL Normal 79.0-94.5 [facility] Comment on above: Performed By: #### L [id number] ####[facility] (DEFAULT)[address] [facility] [place] [address] Mean Cell Hgb 27.8 pg Normal 26.1-33.3 [facility] Comment on above: Performed By: #### L [id number] ####[facility] (DEFAULT)[address] [facility] [place] [address] Mean Cell Hgb Conc 32.7 g/dL Normal 31.9-36.5 [facility] [facility] Comment on above: Performed By: #### L [id number] ####[facility] (DEFAULT)[address] [facility] [place] [address] Monocytes (Bld) [#/Vol] 0.66 10*3/uL Normal 0.24-0.93 [facility] Comment on above: Performed By: #### L [id number] ####[facility] (DEFAULT)[address] [facility] [place] [address] Monocytes/100 WBC (Bld) 13.9 % Normal [facility] Comment on above: Performed By: #### L [id number] ####[facility] (DEFAULT)[address] [facility] [place] [address] Nucleated RBC 0.0 /100 WBC Normal <=0.2 [facility] Comment on above: Performed By: #### L [id number] ####[facility] (DEFAULT)[address] [facility] [place] [address] Platelet mean volume (Bld) [Entitic vol] 9.3 fL Normal 8.7-12.3 [facility] Comment on above: Performed By: #### L [id number] ####[facility] (DEFAULT)[address] [facility] [place] [address] Platelets (Bld) [#/Vol] 262 10*3/uL Normal 146-337 [facility] Comment on above: Performed By: #### L [id number] ####[facility] (DEFAULT)[address] [place] [address] RBC (Bld) [#/Vol] 4.46 10*6/uL Normal 4.38-5.83 [facility] Comment on above: Performed By: #### L [id number] ####[facility] (DEFAULT)[address] [facility] [place] [address] RBC Distribution 13.4 % Normal 10.9-14.3 [facility] Comment on above: Performed By: #### L [id number] ####[facility] (DEFAULT)[address] [place] [address] Segs + Bands Auto 45.7 % Normal [facility] Comment on above: Performed By: #### L [id number] ####[facility] (DEFAULT)[address] [place] [address] Segs + Bands,Absolute Auto 2.16 K/uL Normal 1.57-6.19 [facility] Comment on above: Performed By: #### L [id number] ####[facility] (DEFAULT)[address] [place] [address] WBC (Bld) [#/Vol] 4.74 10*3/uL Normal 3.73-10.10 [facility] Comment on above: Performed By: #### L [id number] ####[facility] (DEFAULT)[address] [place] [address] CHEM 6 (LYTES, BUN CREA)on 0 08-28-2023 [...] CKD-EPI, Male 52 Low - PINF [facility] Interpretation and review of laboratory results Abnormal [facility] Potassium [Moles/Vol] 4.3 mmol/L 3.5 - 5.0 mmol/L [facility] Sodium [Moles/Vol] 134 mmol/L Low 135 - 145 mmol/L [facility] Urea nitrogen [Mass/Vol] 22 mg/dL 7 - 25 mg/dL [facility] Urea nitrogen/Creatinine [Mass ratio] 14 mg/mg [facility] Anion gap [Moles/Vol] 13 mmol/L Normal 7-17 [facility] Comment on above: Performed By: #### C HM6 ####[facility] (DEFAULT)[address] [place] [address] Chloride [Moles/Vol] 103 mmol/L Normal 98-108 [facility] Comment on above: Performed By: #### C HM6 ####[facility] (DEFAULT)[address] [place] [address] CO2 [Moles/Vol] 22 mmol/L Normal 21-31 [facility] Comment on above: Performed By: #### C HM6 ####[facility] (DEFAULT)[address] [place] [address] Creatinine [Mass/Vol] 1.62 mg/dL High 0.70-1.30 [facility] Comment on above: Performed By: #### C HM6 ####[facility] (DEFAULT)[address] [place] [address] GFR/1.73 sq M.predicted among non-blacks MDRD (S/P/Bld) [Vol rate/Area] 51 mL/min/{1.73_m2} Low >=60 [facility] Comment on above: Result Comment: Repo rted eGFR is based on the CKD-EPI 2020 equation using creatinine, age, and sex. Performed By: #### C HM6 ####[facility] (DEFAULT)[address] [place] [address] Potassium [Moles/Vol] 4.3 mmol/L Normal 3.5-5.0 [facility] Comment on above: Performed By: #### C HM6 ####[facility] (DEFAULT)[address] [facility] [place] [address] Sodium [Moles/Vol] 134 mmol/L Low 135-145 [facility] Comment on above: Performed By: #### C HM6 ####[facility] (DEFAULT)[address] [facility] [place] [address] Urea nitrogen [Mass/Vol] 22 mg/dL Normal 7-25 [facility] Comment on above: Performed By: #### C HM6 ####[facility] (DEFAULT)[address] [place] [address], [place] [address] Urea nitrogen/Creatinine [Mass ratio] 14 mg/mg Normal [facility] Comment on above: Performed By: #### C HM6 ####[facility] (DEFAULT)[address] [place] [address], [place] [address] IMMUNOCOMPROMISED RESPIRATOR Y PANELon 08-28-2023 Adenovirus - Pcr Not detected Normal Not Detected [facility] Comment on above: Order Comment: [...] assay. Performed By: #### I CRESP ####[facility] (DEFAULT)[address] [facility] [place] [address] Bordetella Parapertussis Not detected Normal Not Detected [facility] Comment on above: Order Comment: [...] Performed By: #### I CRESP ####[facility] (DEFAULT)[address] [place] [address], [place] [address] Bordetella Pertussis Not detected Normal Not Detected [facility] Comment on above: Order Comment: [...] Performed By: #### I CRESP ####[facility] (DEFAULT)[address] [place] [address] Chlamydia Pneumoniae Not detected Normal Not Detected [facility] Comment on above: Order Comment: [...] Performed By: #### I CRESP ####[facility] (DEFAULT)[address] [place] [address], [place] [address] Coronavirus 229E Not detected Normal Not Detected [facility] Comment on above: Order Comment: [...] Performed By: #### I CRESP ####[facility] (DEFAULT)[address] [place] [address], [place] [address] Coronavirus Hku1 Not detected Normal Not Detected [facility] Comment on above: Order Comment: [...] Performed By: #### I CRESP ####[facility] (DEFAULT)[address] [place] [address], [place] [address] Coronavirus Nl63 Not detected Normal Not Detected [facility] Comment on above: Order Comment: [...] Performed By: #### I CRESP ####[facility] (DEFAULT)[address] [facility] [place] [address] Coronavirus Oc43 Not detected Normal Not Detected [facility] Comment on above: Order Comment: [...] Performed By: #### I CRESP ####[facility] (DEFAULT)[address] [place] [address] Influenza A - Pcr Not detected Normal Not Detected [facility] Comment on above: Order Comment: Viral [...] Performed By: #### I CRESP ####[facility] (DEFAULT)[address] [place] [address] Influenza B - Pcr Not detected Normal Not Detected [facility] Comment on above: Order Comment: Viral [...] Performed By: #### I CRESP ####[facility] (DEFAULT)[address] [place] [address], [place] [address] Metapneumovirus - Pcr Not detected Normal Not Detected [facility] Comment on above: Order Comment: [...] Performed By: #### I CRESP ####[facility] (DEFAULT)[address] [place] [address], [place] [address] Mycoplasma Pneumoniae Not detected Normal Not Detected [facility] Comment on above: Order Comment: [...] Performed By: #### I CRESP ####[facility] (DEFAULT)[address] [place] [address], [place] [address] Parainfluenza 1 - Pcr Not detected Normal Not Detected [facility] Comment on above: Order Comment: [...] Performed By: #### I CRESP ####[facility] (DEFAULT)[address] [place] [address], [place] [address] Parainfluenza 2 - Pcr Not detected Normal Not Detected [facility] Comment on above: Order Comment: [...] assay. Performed By: #### I CRESP ####[facility] (DEFAULT)[address] [place] [address], [place] [address] Parainfluenza 3 - Pcr Not detected Normal Not Detected [facility] Comment on above: Order Comment: [...] assay. Performed By: #### I CRESP ####[facility] (DEFAULT)[address] [place] [address], [place] [address] Parainfluenza 4 - Pcr Not detected Normal Not Detected [facility] Comment on above: Order Comment: [...] assay. Performed By: #### I CRESP ####[facility] (DEFAULT)[address] [facility] [place] [address] Rhinovirus/Enterovir us - PCR Not detected Normal Not Detected [facility] Comment on above: Order Comment: [...] assay. Performed By: #### I CRESP ####[facility] (DEFAULT)[address] [address] Rsv - Pcr Not detected Normal Not Detected [facility] Comment on above: Order Comment: [...] assay. Performed By: #### I CRESP ####[facility] (DEFAULT)[address] [address] SARS-CoV-2 (COVID-19) RNA ESTELITA+probe Ql (Unsp spec) Not detected Normal NOT DETECTED [facility] Comment on above: Order Comment: [...] assay. Performed By: #### I CRESP ####[facility] (DEFAULT)[address] [place] [address] Portable XR Chest Viewson Radiology Study observation (narrative) [facility] Respiratory virus DNA+RNA NA A+probe Nom (Unsp spec)Ordered By: Dayami Harris on 08-28-2023 Adenovirus DNA ESTELITA+probe Nom (Unsp spec) Not detected Not Detected [facility] B. parapertussis DNA ESTELITA+probe Ql (Unsp spec) Not detected Not Detected [facility] B. pertussis DNA ESTELITA+probe Ql (Unsp spec) Not detected Not Detected [facility] C. pneumoniae DNA ESTELITA+probe Ql (Unsp spec) Not detected Not Detected [facility] FLUAV RNA ESTELITA+probe Ql (Unsp spec) Not detected Not Detected [facility] FLUBV RNA ESTELITA+probe Ql (Unsp spec) Not detected Not Detected [facility] HCoV 229E RNA ESTELITA+non-probe Ql (Nph) Not detected Not Detected [facility] HCoV HKU1 RNA ESTELITA+non-probe Ql (Nph) Not detected Not Detected [facility] HCoV NL63 RNA ESTELITA+non-probe Ql (Nph) Not detected Not Detected [facility] HCoV OC43 RNA ESTELITA+non-probe Ql (Nph) Not detected Not Detected [facility] hMPV A RNA ESTELITA+probe Ql (Unsp spec) Not detected Not Detected [facility] Interpretation and review of laboratory results Normal [facility] M. pneumoniae DNA ESTELITA+probe Ql (Unsp spec) Not detected Not Detected [facility] Parainfluenza virus 1 RNA ESTELITA+probe Ql (Unsp spec) Not detected Not Detected [facility] Parainfluenza virus 2 RNA ESTELITA+probe Ql (Unsp spec) Not detected Not Detected [facility] Parainfluenza virus 3 RNA ESTELITA+probe Ql (Unsp spec) Not detected Not Detected [facility] Parainfluenza virus 4 RNA ESTELITA+probe Ql (Unsp spec) Not detected Not Detected [facility] Rhinovirus+Enterovir us RNA ESTELITA+probe Ql (Unsp spec) Not detected Not Detected [facility] RSV RNA ESTELITA+probe Ql (Unsp spec) Not detected Not Detected [facility] SARS-CoV-2 (COVID-19) RNA ESTELITA+probe Ql (Unsp spec) Not detected NOT DETECTED [facility] ALBUMINon 04-28-2023 Albumin [Mass/Vol] 4.0 g/dL Normal 3.4-5.[address] [facility] Comment on above: Performed By: #### C MP #### [facility] [address] [place] [address] Dr. Dwight Waters ALKALINE PHOSPHAon ALP [Catalytic activity/Vol] 106 U/L Normal 46-116 [facility] Comment on above: Performed By: #### F [id number] #### [facility] [address] [place] [address] Dr. Dwight Waters BILIRUBIN CONJUGATED (DIRECT )on 04-28-2023 BILI, CONJUGATED 0.3 mg/dL Critically high 0.0-0.[address] [facility] Comment on above: Performed By: #### C MP #### [facility] [address] [place] [address] Dr. Dwight Waters BILIRUBIN TOTALon 04-28-2023 Bilirubin [Mass/Vol] 1.4 mg/dL Critically high 0.2-1.[address] [facility] Comment on above: Performed By: #### C MP #### [facility] [address] [place] [address] Dr. Dwight Waters BUNon 04-28-2023 Urea nitrogen [Mass/Vol] 12.0 mg/dL Normal 7.0-18.[address] [facility] Comment on above: Performed By: #### U RTPCR #### [facility] [address] [place] [address] Dr. Dwight Waters CALCIUMon 04-28-2023 Calcium [Mass/Vol] 9.3 mg/dL Normal 8.5-10.[address] [facility] Comment on above: Performed By: #### U RTPCR #### [facility] [address] [place] [address] Dr. Dwight Waters CBC AUTO DIFFon 04-28-2023 BASO # 0.1 103/ul Normal 0.0-0.[address] [facility] Comment on above: Performed By: #### C BC #### [facility] [address] [place] [address] Dr. Dwight Waters Basophils/100 WBC (Bld) 0.9 % Normal 0.2-2.[address] [facility] Comment on above: Performed By: #### C BC #### [facility] [address] [place] [address] Dr. Dwight Waters EO # 0.2 103/ul Normal 0.0-0.[address] [facility] Comment on above: Performed By: #### C BC #### [facility] [address] [place] [address] Dr. Dwight Waters Eosinophils/100 WBC (Bld) 3.8 % Normal 0.9-7.[address] [facility] Comment on above: Performed By: #### C BC #### [facility] [address] [place] [address] Dr. Dwight Waters Erythrocyte distribution width (RBC) [Ratio] 12.5 % Normal 11.0-15.[address] [facility] Comment on above: Performed By: #### C BC #### [facility] [address] [place] [address] Dr. Dwight Waters Hematocrit (Bld) [Volume fraction] 49.8 % Normal 42.0-54.[address] [facility] Comment on above: Performed By: #### C BC #### [facility] [address] [place] [address] Dr. Dwight Waters Hemoglobin (Bld) [Mass/Vol] 16.4 g/dL Normal 14.0-18.0 [facility] Comment on above: Performed By: #### C BC #### [facility] [address] [place] [address] Dr. Dwight Waters IG # 0.01 10e3/ul Normal 0.00-0.[address] [facility] Comment on above: Performed By: #### C BC #### [facility] [address] [place] [address] Dr. Dwight Waters IG % 0.2 % Normal 0.0-0.[address] [facility] Comment on above: Performed By: #### C BC #### [facility] [address] [place] [address] Dr. Dwight Waters LYMPH # 2.1 103/ul Normal 1.2-3.[address] [facility] Comment on above: Performed By: #### C BC #### [facility] [address] [place] [address] Dr. Dwight Waters Lymphocytes/100 WBC (Bld) 39.1 % Normal 20.5-60.[address] [facility] Comment on above: Performed By: #### C BC #### [facility] [address] [place] [address] Dr. Dwight Waters MANUAL DIFF REQ NO Normal [facility] Comment on above: Performed By: #### C BC #### [facility] [address] [place] [address] Dr. Dwight Waters MCH (RBC) [Entitic mass] 28.6 pg Normal 25.9-34.[address] [facility] Comment on above: Performed By: #### C BC #### [facility] [address] [place] [address] Dr. Dwight Waters MCHC (RBC) [Mass/Vol] 32.9 g/dL Normal 29.9-35.[address] [facility] Comment on above: Performed By: #### C BC #### [facility] [address] [place] [address] Dr. Dwight Waters MCV (RBC) [Entitic vol] 86.9 fL Normal 80.0-94.[address] [facility] Comment on above: Performed By: #### C BC #### [facility] [address] [place] [address] Dr. Dwight Waters MONO # 0.6 103/ul Normal 0.3-0.[address] [facility] Comment on above: Performed By: #### C BC #### [facility] [address] [place] [address] Dr. Dwight Waters Monocytes/100 WBC (Bld) 10.6 % Normal 1.7-12.[address] [facility] Comment on above: Performed By: #### C BC #### [facility] [address] [place] [address] Dr. Dwight Waters NEUT # 2.5 103/ul Normal 1.4-6.[address] [facility] Comment on above: Performed By: #### C BC #### [facility] [address] [place] [address] Dr. Dwight Waters Neutrophils/100 WBC (Bld) 45.4 % Normal 43.0-75.[address] [facility] Comment on above: Performed By: #### C BC #### [facility] [address] [place] [address] Dr. Dwight Waters Platelet mean volume (Bld) [Entitic vol] 9.3 fL Critically low 9.5-13.[address] [facility] Comment on above: Performed By: #### C BC #### [facility] [address] [place] [address] Dr. Dwight Waters PLT 248 103/ul Normal 150-450 [facility] Comment on above: Performed By: #### C BC #### [facility] [address] [place] [address] Dr. Dwight Waters RBC 5.73 106/ul Normal 4.70-6.10 [facility] Comment on above: Performed By: #### C BC #### [facility] [address] [place] [address] Dr. Dwight Waters WBC 5.5 103/ul Normal 4.0-11.0 [facility] Comment on above: Performed By: #### C BC #### [facility] [address] [place] [address] Dr. Dwight Waters CHLORIDEon 04-28-2023 Chloride [Moles/Vol] 107 mmol/L Normal 98-107 [facility] Comment on above: Performed By: #### U RTPCR #### [facility] [address] [place] [address] Dr. Dwight Waters CO2on 04-28-2023 CO2 [Moles/Vol] 28.9 mmol/L Normal 21.0-32.0 [facility] Comment on above: Performed By: #### U RTPCR #### [facility] [address] [address] [address] Dwight Waters CREATININEon 04-28-2023 Creatinine [Mass/Vol] 1.17 mg/dL Normal 0.70-1.[address] [facility] Comment on above: Performed By: #### U RTPCR #### [facility] [address] [place] [address] Dr. Dwight Waters EGFR-AF [place] ISLANDER >60 Normal >=[address] [facility] Comment on above: Performed By: #### U RTPCR #### [facility] [address] [place] [address] Dr. Dwight Waters EGFR-NON AF [place] ISLANDER >60 Normal >=[address] [facility] Comment on above: Performed By: #### U RTPCR #### [facility] [address] [place] [address] Dr. Dwight Waters GGTon 04-28-2023 Gamma glutamyl transferase [Catalytic activity/Vol] 27 U/L Normal 15-[address] [facility] Comment on above: Performed By: #### U RTPCR #### [facility] [address] [place] [address] Dr. Dwight Waters GLUCOSE BLOODon 04-28-2023 Glucose [Mass/Vol] 110 mg/dL Critically high 74-106 [facility] Comment on above: Performed By: #### U RTPCR #### [facility] [address] [place] [address] Dr. Dwight Waters MAGNESIUMon 04-28-2023 Magnesium [Mass/Vol] 1.7 mg/dL Critically low 1.8-2.[address] [facility] Comment on above: Performed By: #### U RTPCR #### [facility] [address] [place] [address] Dr. Dwight Waters NAon 04-28-2023 Sodium [Moles/Vol] 144 mmol/L Normal 136-[address] [facility] Comment on above: Performed By: #### U RTPCR #### [facility] [address] [place] [address] Dr. Dwight Waters PHOSPHORUSon 04-28-2023 Phosphate [Mass/Vol] 3.2 mg/dL Normal 2.6-4.7 [facility] Comment on above: Performed By: #### U RTPCR #### [facility] [address] [place] [address] Dr. Dwight Waters POTASSIUMon 04-28-2023 Potassium [Moles/Vol] 4.0 mmol/L Normal 3.5-5.1 [facility] Comment on above: Performed By: #### U RTPCR #### [facility] [address] [place] [address] Dr. Dwight Waters SGOTon 04-28-2023 AST [Catalytic activity/Vol] 25 U/L Normal 15-[address] [facility] Comment on above: Performed By: #### C MP #### [facility] [address] [place] [address] Dr. Dwight Waters SGPTon 04-28-2023 ALT [Catalytic activity/Vol] 40 U/L Normal 16-63 [facility] Comment on above: Performed By: #### C MP #### [facility] [address] [place] [address] Dr. Dwight Waters URINE T PROTEIN CREAT RATIOo 04-28-2023 Protein (U) [Mass/Vol] 10.1 mg/dL Normal <=12.[address] [facility] Comment on above: Performed By: #### U RTPCR #### [facility] [address] [place] [address] Dr. Dwight Waters UR PROT CREAT RAT 0.14 Normal [facility] Comment on above: Performed By: #### U RTPCR #### [facility] [address] [place] [address] Dr. Dwight Waters URINE CREAT 74.40 mg/dL Normal 20.00-300.00 [facility] Comment on above: Performed By: #### U RTPCR #### [facility] [address] [place] [address] Dr. Dwight Waters BK VIRUS PCR QUANTon 023 BKV DNA QUANT PCR PLASMA Negative Normal Negative [facility] Comment on above: Result Comment: No B K DNA detected. . The linear range of the assay is 22 - 100,000,000 IU/mL. Performed By: #### B KVIRUS #### [facility] [address] [place] [address] Dr. Dwight Waters Log10 BKV DNA Plasma Normal [facility] Comment on above: Performed By: #### B KVIRUS #### [facility] [address] [place] [address] Dr. Dwight Waters FK506 (TACROLIMUS) WHOLE BLO ODon 03-04-2023 Tacrolimus (FK506), Blood 5.9 ng/mL Normal 2.0-20.[address] [facility] Comment on above: Result Comment: Trou gh (immediately following transplant) 15.0 . Trough (steady state, 2 weeks or more after transplant): 3.0 - 8.0 . Performed by LC-MS/MS technology. Performed By: #### C MP #### [facility] [address] [place] [address] Dr. Dwight Waters ALBUMINon 03-02-2023 Albumin [Mass/Vol] 3.9 g/dL Normal 3.4-5.[address] [facility] Comment on above: Performed By: #### U RTPCR #### [facility] [address] [place] [address] Dr. Dwight Waters ALKALINE PHOSPHAon ALP [Catalytic activity/Vol] 105 U/L Normal 46-116 [facility] [facility] Comment on above: Performed By: #### U RTPCR #### [facility] [address] [place] [address] Dr. Dwight Waters BILIRUBIN CONJUGATED (DIRECT )on 03-02-2023 BILI, CONJUGATED 0.2 mg/dL Normal 0.0-0.[address] [facility] Comment on above: Performed By: #### U RTPCR #### [facility] [address] [place] [address] Dr. Dwight Waters BILIRUBIN TOTALon 03-02-2023 Bilirubin [Mass/Vol] 0.9 mg/dL Normal 0.2-1.[address] [facility] Comment on above: Performed By: #### U RTPCR #### [facility] [address] [place] [address] Dr. Dwight Waters CBC AUTO DIFFon 03-02-2023 BASO # 0.1 103/ul Normal 0.0-0.[address] [facility] Comment on above: Performed By: #### C BC #### [facility] [address] [place] [address] Dr. Dwight Waters Basophils/100 WBC (Bld) 0.9 % Normal 0.2-2.[address] [facility] Comment on above: Performed By: #### C BC #### [facility] [address] [place] [address] Dr. Dwight Waters EO # 0.2 103/ul Normal 0.0-0.[address] [facility] Comment on above: Performed By: #### C BC #### [facility] [address] [place] [address] Dr. Dwight Waters Eosinophils/100 WBC (Bld) 3.5 % Normal 0.9-7.[address] [facility] Comment on above: Performed By: #### C BC #### [facility] [address] [place] [address] Dr. Dwight Waters Erythrocyte distribution width (RBC) [Ratio] 12.7 % Normal 11.0-15.[address] [facility] Comment on above: Performed By: #### C BC #### [facility] [address] [place] [address] Dr. Dwight Waters Hematocrit (Bld) [Volume fraction] 48.2 % Normal 42.0-54.[address] [facility] Comment on above: Performed By: #### C BC #### [facility] [address] [place] [address] Dr. Dwight Waters Hemoglobin (Bld) [Mass/Vol] 15.9 g/dL Normal 14.0-18.[address] [facility] Comment on above: Performed By: #### C BC #### [facility] [address] [place] [address] Dr. Dwight Waters IG # 0.01 10e3/ul Normal 0.00-0.[address] [facility] Comment on above: Performed By: #### C BC #### [facility] [address] [place] [address] Dr. Dwight Waters IG % 0.2 % Normal 0.0-0.[address] [facility] Comment on above: Performed By: #### C BC #### [facility] [address] [place] [address] Dr. Dwight Waters LYMPH # 2.1 103/ul Normal 1.2-3.8 [facility] Comment on above: Performed By: #### C BC #### [facility] [address] [place] [address] Dr. Dwight Waters Lymphocytes/100 WBC (Bld) 37.4 % Normal 20.5-60.[address] [facility] Comment on above: Performed By: #### C BC #### [facility] [address] [place] [address] Dr. Dwight Waters MANUAL DIFF REQ NO Normal [facility] Comment on above: Performed By: #### C BC #### [facility] [address] [place] [address] Dr. Dwight Waters MCH (RBC) [Entitic mass] 28.3 pg Normal 25.9-34.[address] [facility] Comment on above: Performed By: #### C BC #### [facility] [address] [place] [address] Dr. Dwight Waters MCHC (RBC) [Mass/Vol] 33.0 g/dL Normal 29.9-35.2 [facility] Comment on above: Performed By: #### C BC #### [facility] [address] [place] [address] Dr. Dwight Waters MCV (RBC) [Entitic vol] 85.8 fL Normal 80.0-94.0 [facility] Comment on above: Performed By: #### C BC #### [facility] [address] [place] [address] Dr. Dwight Waters MONO # 0.6 103/ul Normal 0.3-0.8 [facility] Comment on above: Performed By: #### C BC #### [facility] [address] [place] [address] Dr. Dwight Waters Monocytes/100 WBC (Bld) 10.2 % Normal 1.7-12.0 [facility] Comment on above: Performed By: #### C BC #### [facility] [address] [place] [address] Dr. Dwight Waters NEUT # 2.7 103/ul Normal 1.4-6.5 [facility] Comment on above: Performed By: #### C BC #### [facility] [address] [place] [address] Dr. Dwight Waters Neutrophils/100 WBC (Bld) 47.8 % Normal 43.0-75.0 [facility] Comment on above: Performed By: #### C BC #### [facility] [address] [place] [address] Dr. Dwight Waters Platelet mean volume (Bld) [Entitic vol] 9.3 fL Critically low 9.5-13.5 [facility] Comment on above: Performed By: #### C BC #### [facility] [address] [place] [address] Dr. Dwight Waters PLT 241 103/ul Normal 150-450 [facility] Comment on above: Performed By: #### C BC #### [facility] [address] [place] [address] Dr. Dwight Waters RBC 5.62 106/ul Normal 4.70-6.10 [facility] Comment on above: Performed By: #### C BC #### [facility] [address] [place] [address] Dr. Dwight Waters WBC 5.7 103/ul Normal 4.0-11.0 [facility] Comment on above: Performed By: #### C BC #### [facility] [address] [place] [address] Dr. Dwight Waters GGTon 03-02-2023 Gamma glutamyl transferase [Catalytic activity/Vol] 25 U/L Normal 15-85 [facility] Comment on above: Performed By: #### U RTPCR #### [facility] [address] [place] [address] Dr. Dwight Waters MAGNESIUMon 03-02-2023 Magnesium [Mass/Vol] 1.6 mg/dL Critically low 1.8-2.4 [facility] Comment on above: Performed By: #### U RTPCR #### [facility] [address] [place] [address] Dr. Dwight Waters PHOSPHORUSon 03-02-2023 Phosphate [Mass/Vol] 3.6 mg/dL Normal 2.6-4.7 [facility] Comment on above: Performed By: #### U RTPCR #### [facility] [address] [place] [address] Dr. Dwight Waters PROF CHEM 8 (BAS METB)on Anion gap [Moles/Vol] 9.4 mmol/L Normal [facility] Comment on above: Performed By: #### U RTPCR #### [facility] [address] [place] [address] Dr. Dwight Waters Calcium [Mass/Vol] 9.3 mg/dL Normal 8.5-10.1 [facility] Comment on above: Performed By: #### U RTPCR #### [facility] [address] [place] [address] Dr. Dwight Waters Chloride [Moles/Vol] 108 mmol/L Critically high 98-[address] [facility] Comment on above: Performed By: #### U RTPCR #### [facility] [address] [place] [address] Dr. Dwight Waters CO2 [Moles/Vol] 27.2 mmol/L Normal 21.0-32.0 [facility] Comment on above: Performed By: #### U RTPCR #### [facility] [address] [place] [address] Dr. Dwight Waters Creatinine [Mass/Vol] 1.12 mg/dL Normal 0.70-1.30 [facility] Comment on above: Performed By: #### U RTPCR #### [facility] [address] [place] [address] Dr. Dwight Waters EGFR-AF [place] ISLANDER >60 Normal >=60 [facility] Comment on above: Performed By: #### U RTPCR #### [facility] [address] [place] [address] Dr. Dwight Waters EGFR-NON AF [place] ISLANDER >60 Normal >=[address] [facility] Comment on above: Performed By: #### U RTPCR #### [facility] [address] [address] [address] Dwight Waters Glucose [Mass/Vol] 113 mg/dL Critically high 74-106 [facility] Comment on above: Performed By: #### U RTPCR #### [facility] [address] [address] [address] Dwight Waters Potassium [Moles/Vol] 3.6 mmol/L Normal 3.5-5.[address] [facility] Comment on above: Performed By: #### U RTPCR #### [facility] [address] [place] [address] Dr. Dwight Waters Sodium [Moles/Vol] 141 mmol/L Normal 136-[address] [facility] Comment on above: Performed By: #### U RTPCR #### [facility] [address] [place] [address] Dr. Dwight Waters Urea nitrogen [Mass/Vol] 14.0 mg/dL Normal 7.0-18.[address] [facility] Comment on above: Performed By: #### U RTPCR #### [facility] [address] [place] [address] Dr. Dwight Waters Urea nitrogen/Creatinine [Mass ratio] 12.5 mg/mg Normal [facility] Comment on above: Performed By: #### U RTPCR #### [facility] [address] [place] [address] Dr. Dwight Waters SGOTon 03-02-2023 AST [Catalytic activity/Vol] 20 U/L Normal 15-[address] [facility] Comment on above: Performed By: #### U RTPCR #### [facility] [address] [place] [address] Dr. Dwight Waters SGPTon 03-02-2023 ALT [Catalytic activity/Vol] 30 U/L Normal 16-[address] [facility] Comment on above: Performed By: #### U RTPCR #### [facility] [address] [place] [address] Dr. Dwight Waters URINE T PROTEIN CREAT RATIOo n 03-02-2023 Protein (U) [Mass/Vol] 10.3 mg/dL Normal <=12.[address] [facility] Comment on above: Performed By: #### U RTPCR #### [facility] [address] [place] [address] Dr. Dwight Waters UR PROT CREAT RAT 0.[address] [facility] Comment on above: Performed By: #### U RTPCR #### [facility] [address] [place] [address] Dr. Dwight Waters URINE CREAT 68.96 mg/dL Normal 20.00-300.[address] [facility] Comment on above: Performed By: #### U RTPCR #### [facility] [address] [place] [address] Dr. Dwight Waters BK VIRUS PCR QUANTon 023 BKV DNA QUANT PCR PLASMA Negative Normal Negative [facility] Comment on above: Result Comment: No B K DNA detected. . The linear range of the assay is 22 - 100,000,000 IU/mL. Performed By: #### C MP #### [facility] [address] [place] [address] Dr. Dwight Waters Log10 BKV DNA Plasma Normal [facility] Comment on above: Performed By: #### C MP #### [facility] [address] [place] [address] Dr. Dwight Waters FK506 (TACROLIMUS) WHOLE BLO ODon 12-31-2022 Tacrolimus (FK506), Blood 5.6 ng/mL Normal 2.0-20.[address] [facility] Comment on above: Result Comment: Trou gh (immediately following transplant) 15.0 . Trough (steady state, 2 weeks or more after transplant): 3.0 - 8.0 . Performed by LC-MS/MS technology. Performed By: #### C MP #### [facility] [address] [place] [address] Dr. Dwight Waters ALKALINE PHOSPHAon 3 ALP [Catalytic activity/Vol] 96 U/L Normal 46-116 [facility] Comment on above: Performed By: #### C BC #### [facility] [address] [place] [address] Dr. Dwight Waters BILIRUBIN CONJUGATED (DIRECT )on 12-29-2022 BILI, CONJUGATED 0.3 mg/dL Critically high 0.0-0.[address] [facility] Comment on above: Performed By: #### C BC #### [facility] [address] [place] [address] Dr. Dwight Waters BILIRUBIN TOTALon 12-29-2022 Bilirubin [Mass/Vol] 1.1 mg/dL Critically high 0.2-1.[address] [facility] Comment on above: Performed By: #### C BC #### [facility] [address] [place] [address] Dr. Dwight Waters CBC AUTO DIFFon 12-29-2022 BASO # 0.1 103/ul Normal 0.0-0.[address] [facility] Comment on above: Performed By: #### C MP #### [facility] [address] [place] [address] Dr. Dwight Waters Basophils/100 WBC (Bld) 0.8 % Normal 0.2-2.0 [facility] Comment on above: Performed By: #### C MP #### [facility] [address] [place] [address] Dr. Dwight Waters EO # 0.2 103/ul Normal 0.0-0.7 [facility] Comment on above: Performed By: #### C MP #### [facility] [address] [place] [address] Dr. Dwight Waters Eosinophils/100 WBC (Bld) 3.0 % Normal 0.9-7.0 [facility] Comment on above: Performed By: #### C MP #### [facility] [address] [place] [address] Dr. Dwight Waters Erythrocyte distribution width (RBC) [Ratio] 12.9 % Normal 11.0-15.0 [facility] Comment on above: Performed By: #### C MP #### [facility] [address] [place] [address] Dr. Dwight Waters Hematocrit (Bld) [Volume fraction] 46.9 % Normal 42.0-54.[address] [facility] Comment on above: Performed By: #### C MP #### [facility] [address] [place] [address] Dr. Dwight Waters Hemoglobin (Bld) [Mass/Vol] 16.1 g/dL Normal 14.0-18.[address] [facility] Comment on above: Performed By: #### C MP #### [facility] [address] [place] [address] Dr. Dwight Waters IG # 0.01 10e3/ul Normal 0.00-0.[address] [facility] Comment on above: Performed By: #### C MP #### [facility] [address] [place] [address] Dr. Dwight Waters IG % 0.2 % Normal 0.0-0.[address] [facility] Comment on above: Performed By: #### C MP #### [facility] [address] [place] [address] Dr. Dwight Waters LYMPH # 1.8 103/ul Normal 1.2-3.[address] [facility] Comment on above: Performed By: #### C MP #### [facility] [address] [place] [address] Dr. Dwight Waters Lymphocytes/100 WBC (Bld) 27.9 % Normal 20.5-60.[address] [facility] Comment on above: Performed By: #### C MP #### [facility] [address] [place] [address] Dr. Dwight Waters MANUAL DIFF REQ NO Normal [facility] Comment on above: Performed By: #### C MP #### [facility] [address] [place] [address] Dr. Dwight Waters MCH (RBC) [Entitic mass] 28.5 pg Normal 25.9-34.[address] [facility] Comment on above: Performed By: #### C MP #### [facility] [address] [place] [address] Dr. Dwight Waters MCHC (RBC) [Mass/Vol] 34.3 g/dL Normal 29.9-35.[address] [facility] Comment on above: Performed By: #### C MP #### [facility] [address] [address] [address] Dwight Waters MCV (RBC) [Entitic vol] 83.2 fL Normal 80.0-94.0 [facility] Comment on above: Performed By: #### C MP #### [facility] [address] [address] [address] Dwight Waters MONO # 0.5 103/ul Normal 0.3-0.8 [facility] Comment on above: Performed By: #### C MP #### [facility] [address] [place] [address] Dr. Dwight Waters Monocytes/100 WBC (Bld) 8.1 % Normal 1.7-12.[address] [facility] Comment on above: Performed By: #### C MP #### [facility] [address] [place] [address] Dr. Dwight Waters NEUT # 3.8 103/ul Normal 1.4-6.[address] [facility] Comment on above: Performed By: #### C MP #### [facility] [address] [place] [address] Dr. Dwight Waters Neutrophils/100 WBC (Bld) 60.0 % Normal 43.0-75.0 [facility] Comment on above: Performed By: #### C MP #### [facility] [address] [place] [address] Dr. Dwight Waters Platelet mean volume (Bld) [Entitic vol] 9.2 fL Critically low 9.5-13.5 [facility] Comment on above: Performed By: #### C MP #### [facility] [address] [place] [address] Dr. Dwight Waters PLT 225 103/ul Normal 150-450 [facility] Comment on above: Performed By: #### C MP #### [facility] [address] [place] [address] Dr. Dwight Waters RBC 5.64 106/ul Normal 4.70-6.10 [facility] Comment on above: Performed By: #### C MP #### [facility] [address] [place] [address] Dr. Dwight Waters WBC 6.3 103/ul Normal 4.0-11.[address] [facility] Comment on above: Performed By: #### C MP #### [facility] [address] [place] [address] Dr. Dwight Waters GGTon 12-29-2022 Gamma glutamyl transferase [Catalytic activity/Vol] 24 U/L Normal 15-[address] [facility] Comment on above: Performed By: #### C MP #### [facility] [address] [place] [address] Dr. Dwight Waters LIPID PROFILEon 12-29-2022 CHOL-HDL RATIO NORM SEE BELOW Normal [facility] Comment on above: Result Comment: 3.3 - 4.4 LOW RISK 4.4 - 7.1 AVERAGE RISK 7.1 - 11.0 MODERATE RISK >11.0 HIGH RISK Performed By: #### U RTPCR #### [facility] [address] [place] [address] Dr. Dwight Waters Cholesterol [Mass/Vol] 87 mg/dL Normal <=200 [facility] Comment on above: Performed By: #### U RTPCR #### [facility] [address] [place] [address] Dr. Dwight Waters Cholesterol in HDL [Mass/Vol] 44 mg/dL Normal 40-60 [facility] Comment on above: Performed By: #### U RTPCR #### [facility] [address] [place] [address] Dr. Dwight Waters Cholesterol in LDL [Mass/Vol] 33.0 mg/dL Normal [facility] Comment on above: Performed By: #### U RTPCR #### [facility] [address] [place] [address] Dr. Dwight Waters Cholesterol.total/Ch olesterol in HDL [Mass ratio] 2.0 {ratio} Normal [facility] Comment on above: Performed By: #### U RTPCR #### [facility] [address] [place] [address] Dr. Dwight Waters HDL NORMAL > or = 60 mg/dl - LO W CARDIOVASCULAR RISK <40 mg/dl - HIGH CARDIOVASCULAR RISK Normal [facility] Comment on above: Performed By: #### U RTPCR #### [facility] [address] [place] [address] Dr. Dwight Waters LDL CALC NORMAL SEE BELOW Normal [facility] Comment on above: Result Comment: <100 mg/dl OPTIMAL 100 - 129 mg/dl NEAR OR ABOVE OPTIMAL 130 - 159 mg/dl BORDERLINE HIGH 160 - 189 mg/dl HIGH >190 mg/dl VERY HIGH Performed By: #### U RTPCR #### [facility] [address] [place] [address] Dr. Dwight Waters Triglyceride [Mass/Vol] 50 mg/dL Normal <=[address] [facility] Comment on above: Performed By: #### U RTPCR #### [facility] [address] [place] [address] Dr. Dwight Waters VLDL CALC 10.0 mg/dL Normal [facility] Comment on above: Performed By: #### U RTPCR #### [facility] [address] [place] [address] Dr. Dwight Waters MAGNESIUMon 12-29-2022 Magnesium [Mass/Vol] 1.6 mg/dL Critically low 1.8-2.[address] [facility] Comment on above: Performed By: #### C BC #### [facility] [address] [place] [address] Dr. Dwight Waters RENAL FUNCTION PANELon 12-29 Albumin [Mass/Vol] 3.9 g/dL Normal 3.4-5.[address] [facility] Comment on above: Performed By: #### C BC #### [facility] [address] [place] [address] Dr. Dwight Waters Calcium [Mass/Vol] 9.2 mg/dL Normal 8.5-10.[address] [facility] Comment on above: Performed By: #### C BC #### [facility] [address] [place] [address] Dr. Dwight Waters Chloride [Moles/Vol] 109 mmol/L Critically high 98-[address] [facility] Comment on above: Performed By: #### C BC #### [facility] [address] [place] [address] Dr. Dwight Waters CO2 [Moles/Vol] 27.0 mmol/L Normal 21.0-32.[address] [facility] Comment on above: Performed By: #### C BC #### [facility] [address] [place] [address] Dr. Dwight Waters Creatinine [Mass/Vol] 1.02 mg/dL Normal 0.70-1.[address] [facility] Comment on above: Performed By: #### C BC #### [facility] [address] [place] [address] Dr. Dwight Waters EGFR-AF [place] ISLANDER >60 Normal >=[address] [facility] Comment on above: Performed By: #### C BC #### [facility] [address] [place] [address] Dr. Dwight Waters EGFR-NON AF [place] ISLANDER >60 Normal >=[address] [facility] Comment on above: Performed By: #### C BC #### [facility] [address] [place] [address] Dr. Dwight Waters Glucose [Mass/Vol] 117 mg/dL Critically high 74-106 [facility] Comment on above: Performed By: #### C BC #### [facility] [address] [place] [address] Dr. Dwight Waters Phosphate [Mass/Vol] 3.2 mg/dL Normal 2.6-4.[address] [facility] Comment on above: Performed By: #### C BC #### [facility] [address] [place] [address] Dr. Dwight Waters Potassium [Moles/Vol] 4.1 mmol/L Normal 3.5-5.1 [facility] Comment on above: Performed By: #### C BC #### [facility] [address] [place] [address] Dr. Dwight Waters Sodium [Moles/Vol] 144 mmol/L Normal 136-[address] [facility] Comment on above: Performed By: #### C BC #### [facility] [address] [place] [address] Dr. Dwight Waters Urea nitrogen [Mass/Vol] 13.0 mg/dL Normal 7.0-18.[address] [facility] Comment on above: Performed By: #### C BC #### [facility] [address] [place] [address] Dr. Dwight Waters SGOTon 12-29-2022 AST [Catalytic activity/Vol] 21 U/L Normal 15-37 [facility] Comment on above: Performed By: #### C BC #### [facility] [address] [place] [address] Dr. Dwight Waters SGPTon 12-29-2022 ALT [Catalytic activity/Vol] 32 U/L Normal 16-[address] [facility] Comment on above: Performed By: #### C BC #### [facility] [address] [place] [address] Dr. Dwight Waters URINE T PROTEIN CREAT RATIOo n 12-29-2022 Protein (U) [Mass/Vol] 14.3 mg/dL Critically high <=12.[address] [facility] Comment on above: Performed By: #### U RTPCR #### [facility] [address] [place] [address] Dr. Dwight Waters UR PROT CREAT RAT 0.17 Normal [facility] Comment on above: Performed By: #### U RTPCR #### [facility] [address] [place] [address] Dr. Dwight Waters URINE CREAT 86.58 mg/dL Normal 20.00-300.00 [facility] Comment on above: Performed By: #### U RTPCR #### [facility] [address] [place] [address] Dr. Dwight Waters FK506 (TACROLIMUS) WHOLE BLO ODon 11-06-2022 Tacrolimus (FK506), Blood 4.9 ng/mL Normal 2.0-20.0 [facility] Comment on above: Result Comment: Trou gh (immediately following transplant) 15.0 . Trough (steady state, 2 weeks or more after transplant): 3.0 - 8.0 . Performed by LC-MS/MS technology. Performed By: #### U RTPCR #### [facility] [address] [place] [address] Dr. Dwight Waters ALKALINE PHOSPHAon ALP [Catalytic activity/Vol] 86 U/L Normal 46-116 [facility] Comment on above: Performed By: #### U RTPCR #### [facility] [address] [place] [address] Dr. Dwight Waters BILIRUBIN CONJUGATED (DIRECT )on 11-04-2022 BILI, CONJUGATED 0.2 mg/dL Normal 0.0-0.[address] [facility] Comment on above: Performed By: #### U RTPCR #### [facility] [address] [place] [address] Dr. Dwight Waters BILIRUBIN TOTALon 11-04-2022 Bilirubin [Mass/Vol] 0.8 mg/dL Normal 0.2-1.[address] [facility] Comment on above: Performed By: #### U RTPCR #### [facility] [address] [place] [address] Dr. Dwight Waters CBC AUTO DIFFon 11-04-2022 BASO # 0.1 103/ul Normal 0.0-0.[address] [facility] Comment on above: Performed By: #### U RTPCR #### [facility] [address] [place] [address] Dr. Dwight Waters Basophils/100 WBC (Bld) 0.9 % Normal 0.2-2.[address] [facility] Comment on above: Performed By: #### U RTPCR #### [facility] [address] [place] [address] Dr. Dwight Waters EO # 0.2 103/ul Normal 0.0-0.7 [facility] Comment on above: Performed By: #### U RTPCR #### [facility] [address] [place] [address] Dr. Dwight Waters Eosinophils/100 WBC (Bld) 3.7 % Normal 0.9-7.0 [facility] Comment on above: Performed By: #### U RTPCR #### [facility] [address] [place] [address] Dr. Dwight Waters Erythrocyte distribution width (RBC) [Ratio] 12.9 % Normal 11.0-15.[address] [facility] Comment on above: Performed By: #### U RTPCR #### [facility] [address] [place] [address] Dr. Dwight Waters Hematocrit (Bld) [Volume fraction] 48.3 % Normal 42.0-54.[address] [facility] Comment on above: Performed By: #### U RTPCR #### [facility] [address] [place] [address] Dr. Dwight Waters Hemoglobin (Bld) [Mass/Vol] 15.6 g/dL Normal 14.0-18.[address] [facility] Comment on above: Performed By: #### U RTPCR #### [facility] [address] [place] [address] Dr. Dwight Waters IG # 0.01 10e3/ul Normal 0.00-0.[address] [facility] Comment on above: Performed By: #### U RTPCR #### [facility] [address] [place] [address] Dr. Dwight Waters IG % 0.2 % Normal 0.0-0.[address] [facility] Comment on above: Performed By: #### U RTPCR #### [facility] [address] [place] [address] Dr. Dwight Waters LYMPH # 1.9 103/ul Normal 1.2-3.8 [facility] Comment on above: Performed By: #### U RTPCR #### [facility] [address] [place] [address] Dr. Dwight Waters Lymphocytes/100 WBC (Bld) 33.0 % Normal 20.5-60.[address] [facility] Comment on above: Performed By: #### U RTPCR #### [facility] [address] [place] [address] Dr. Dwight Waters MANUAL DIFF REQ NO Normal [facility] Comment on above: Performed By: #### U RTPCR #### [facility] [address] [address] [address] Dwight Waters MCH (RBC) [Entitic mass] 27.6 pg Normal 25.9-34.0 [facility] Comment on above: Performed By: #### U RTPCR #### [facility] [address] [place] [address] Dr. Dwight Waters MCHC (RBC) [Mass/Vol] 32.3 g/dL Normal 29.9-35.2 [facility] Comment on above: Performed By: #### U RTPCR #### [facility] [address] [place] [address] Dr. Dwight Waters MCV (RBC) [Entitic vol] 85.5 fL Normal 80.0-94.[address] [facility] Comment on above: Performed By: #### U RTPCR #### [facility] [address] [place] [address] Dr. Dwight Waters MONO # 0.5 103/ul Normal 0.3-0.[address] [facility] Comment on above: Performed By: #### U RTPCR #### [facility] [address] [place] [address] Dr. Dwight Waters Monocytes/100 WBC (Bld) 8.8 % Normal 1.7-12.[address] [facility] Comment on above: Performed By: #### U RTPCR #### [facility] [address] [place] [address] Dr. Dwight Waters NEUT # 3.1 103/ul Normal 1.4-6.5 [facility] Comment on above: Performed By: #### U RTPCR #### [facility] [address] [place] [address] Dr. Dwight Waters Neutrophils/100 WBC (Bld) 53.4 % Normal 43.0-75.0 [facility] Comment on above: Performed By: #### U RTPCR #### [facility] [address] [place] [address] Dr. Dwight Waters Platelet mean volume (Bld) [Entitic vol] 9.2 fL Critically low 9.5-13.5 [facility] Comment on above: Performed By: #### U RTPCR #### [facility] [address] [place] [address] Dr. Dwight Waters PLT 255 103/ul Normal 150-450 [facility] Comment on above: Performed By: #### U RTPCR #### [facility] [address] [place] [address] Dr. Dwight Waters RBC 5.65 106/ul Normal 4.70-6.10 [facility] Comment on above: Performed By: #### U RTPCR #### [facility] [address] [place] [address] Dr. Dwight Waters WBC 5.7 103/ul Normal 4.0-11.0 [facility] Comment on above: Performed By: #### U RTPCR #### [facility] [address] [place] [address] Dr. Dwight Waters GGTon 11-04-2022 Gamma glutamyl transferase [Catalytic activity/Vol] 22 U/L Normal 15-85 [facility] Comment on above: Performed By: #### U RTPCR #### [facility] [address] [place] [address] Dr. Dwight Waters MAGNESIUMon 11-04-2022 Magnesium [Mass/Vol] 1.8 mg/dL Normal 1.8-2.4 [facility] Comment on above: Performed By: #### U RTPCR #### [facility] [address] [place] [address] Dr. Dwight Waters RENAL FUNCTION PANELon 11-04 Albumin [Mass/Vol] 3.8 g/dL Normal 3.4-5.0 [facility] Comment on above: Performed By: #### U RTPCR #### [facility] [address] [place] [address] Dr. Dwight Waters Calcium [Mass/Vol] 9.3 mg/dL Normal 8.5-10.1 [facility] Comment on above: Performed By: #### U RTPCR #### [facility] [address] [place] [address] Dr. Dwight Waters Chloride [Moles/Vol] 107 mmol/L Normal 98-107 [facility] Comment on above: Performed By: #### U RTPCR #### [facility] [address] [address] [address] Dwight Waters CO2 [Moles/Vol] 29.2 mmol/L Normal 21.0-32.[address] [facility] Comment on above: Performed By: #### U RTPCR #### [facility] [address] [address] [address] Dwight Waters Creatinine [Mass/Vol] 1.07 mg/dL Normal 0.70-1.[address] [facility] Comment on above: Performed By: #### U RTPCR #### [facility] [address] [address] [address] Dwight Waters EGFR-AF SOL[place] ISLANDER >60 Normal >=[address] [facility] Comment on above: Performed By: #### U RTPCR #### [facility] [address] [address] [address] Dwight Waters EGFR-NON AF [place] ISLANDER >60 Normal >=[address] [facility] Comment on above: Performed By: #### U RTPCR #### [facility] [address] [address] [address] Dwight Waters Glucose [Mass/Vol] 106 mg/dL Normal 74-[address] [facility] Comment on above: Performed By: #### U RTPCR #### [facility] [address] [address] [address] Dwight Waters Phosphate [Mass/Vol] 2.8 mg/dL Normal 2.6-4.7 [facility] Comment on above: Performed By: #### U RTPCR #### [facility] [address] [address] [address] Dwight Waters Potassium [Moles/Vol] 4.1 mmol/L Normal 3.5-5.1 [facility] Comment on above: Performed By: #### U RTPCR #### [facility] [address] [address] [address] Dwight Waters Sodium [Moles/Vol] 143 mmol/L Normal 136-145 [facility] Comment on above: Performed By: #### U RTPCR #### [facility] [address] [place] [address] Dr. Dwight Waters Urea nitrogen [Mass/Vol] 12.0 mg/dL Normal 7.0-18.[address] [facility] Comment on above: Performed By: #### U RTPCR #### [facility] [address] [place] [address] Dr. Dwight OLVERAOTon 11-04-2022 AST [Catalytic activity/Vol] 19 U/L Normal 15-37 [facility] Comment on above: Performed By: #### U RTPCR #### [facility] [address] [place] [address] Dr. Dwight Waters SGPTon 11-04-2022 ALT [Catalytic activity/Vol] 28 U/L Normal 16-[address] [facility] Comment on above: Performed By: #### U RTPCR #### [facility] [address] [place] [address] Dr. Dwight Waters URINE T PROTEIN CREAT RATIOo n 11-04-2022 Protein (U) [Mass/Vol] 10.7 mg/dL Normal <=12.[address] [facility] Comment on above: Performed By: #### U RTPCR #### [facility] [address] [place] [address] Dr. Dwight Waters UR PROT CREAT RAT 0.[address] [facility] Comment on above: Performed By: #### U RTPCR #### [facility] [address] [place] [address] Dr. Dwight Waters URINE CREAT 84.50 mg/dL Normal 20.00-300.[address] [facility] Comment on above: Performed By: #### U RTPCR #### [facility] [address] [place] [address] Dr. Dwight Waters FK506 (TACROLIMUS) WHOLE BLO ODon 09-18-2022 Tacrolimus (FK506), Blood 4.6 ng/mL Normal 2.0-20.[address] [facility] Comment on above: Result Comment: Trou gh (immediately following transplant) 15.0 . Trough (steady state, 2 weeks or more after transplant): 3.0 - 8.0 . Performed by LC-MS/MS technology. Performed By: #### U RTPCR #### [facility] [address] [place] [address] Dr. Dwight Waters BK VIRUS PCR QUANTon 022 BKV DNA QUANT PCR PLASMA Negative Normal Negative [facility] Comment on above: Result Comment: No B K DNA detected. . The linear range of the assay is 22 - 100,000,000 IU/mL. Performed By: #### U RTPCR #### [facility] [address] [place] [address] Dr. Dwight Waters Log10 BKV DNA Plasma Normal [facility] Comment on above: Performed By: #### U RTPCR #### [facility] [address] [place] [address] Dr. Dwight Waters ALKALINE PHOSPHAon ALP [Catalytic activity/Vol] 92 U/L Normal 46-[address] [facility] Comment on above: Performed By: #### U RTPCR #### [facility] [address] [place] [address] Dr. Dwight Waters BILIRUBIN CONJUGATED (DIRECT )on 09-15-2022 BILI, CONJUGATED 0.3 mg/dL Critically high 0.0-0.[address] [facility] Comment on above: Performed By: #### U RTPCR #### [facility] [address] [place] [address] Dr. Dwight Waters BILIRUBIN TOTALon 09-15-2022 Bilirubin [Mass/Vol] 1.1 mg/dL Critically high 0.2-1.[address] [facility] Comment on above: Performed By: #### U RTPCR #### [facility] [address] [place] [address] Dr. Dwight Waters CBC AUTO DIFFon 09-15-2022 BASO # 0.1 103/ul Normal 0.0-0.[address] [facility] Comment on above: Performed By: #### C BC #### [facility] [address] [place] [address] Dr. Dwight Waters Basophils/100 WBC (Bld) 0.8 % Normal 0.2-2.[address] [facility] Comment on above: Performed By: #### C BC #### [facility] [address] [place] [address] Dr. Dwight Waters EO # 0.2 103/ul Normal 0.0-0.[address] [facility] Comment on above: Performed By: #### C BC #### [facility] [address] [place] [address] Dr. Dwight Waters Eosinophils/100 WBC (Bld) 3.5 % Normal 0.9-7.[address] [facility] Comment on above: Performed By: #### C BC #### [facility] [address] [place] [address] Dr. Dwight Waters Erythrocyte distribution width (RBC) [Ratio] 13.0 % Normal 11.0-15.[address] [facility] Comment on above: Performed By: #### C BC #### [facility] [address] [place] [address] Dr. Dwight Waters Hematocrit (Bld) [Volume fraction] 50.0 % Normal 42.0-54.[address] [facility] Comment on above: Performed By: #### C BC #### [facility] [address] [place] [address] Dr. Dwight Waters Hemoglobin (Bld) [Mass/Vol] 16.0 g/dL Normal 14.0-18.[address] [facility] Comment on above: Performed By: #### C BC #### [facility] [address] [place] [address] Dr. Dwight Waters IG # 0.02 10e3/ul Normal 0.00-0.03 [facility] Comment on above: Performed By: #### C BC #### [facility] [address] [place] [address] Dr. Dwight Waters IG % 0.3 % Normal 0.0-0.5 [facility] Comment on above: Performed By: #### C BC #### [facility] [address] [place] [address] Dr. Dwight Waters LYMPH # 1.8 103/ul Normal 1.2-3.8 [facility] Comment on above: Performed By: #### C BC #### [facility] [address] [place] [address] Dr. Dwight Waters Lymphocytes/100 WBC (Bld) 26.5 % Normal 20.5-60.0 [facility] Comment on above: Performed By: #### C BC #### [facility] [address] [place] [address] Dr. Dwight Waters MANUAL DIFF REQ NO Normal [facility] Comment on above: Performed By: #### C BC #### [facility] [address] [place] [address] Dr. Dwight Waters MCH (RBC) [Entitic mass] 28.1 pg Normal 25.9-34.0 [facility] Comment on above: Performed By: #### C BC #### [facility] [address] [place] [address] Dr. Dwight Waters MCHC (RBC) [Mass/Vol] 32.0 g/dL Normal 29.9-35.2 [facility] Comment on above: Performed By: #### C BC #### [facility] [address] [place] [address] Dr. Dwight Waters MCV (RBC) [Entitic vol] 87.9 fL Normal 80.0-94.0 [facility] Comment on above: Performed By: #### C BC #### [facility] [address] [place] [address] Dr. Dwight Waters MONO # 0.5 103/ul Normal 0.3-0.8 [facility] Comment on above: Performed By: #### C BC #### [facility] [address] [place] [address] Dr. Dwight Waters Monocytes/100 WBC (Bld) 8.1 % Normal 1.7-12.0 [facility] Comment on above: Performed By: #### C BC #### [facility] [address] [place] [address] Dr. Dwight Waters NEUT # 4.0 103/ul Normal 1.4-6.5 [facility] Comment on above: Performed By: #### C BC #### [facility] [address] [place], [place] [id number] Dr. Dwight Waters Neutrophils/100 WBC (Bld) 60.8 % Normal 43.0-75.0 [facility] Comment on above: Performed By: #### C BC #### [facility] [address] [place] [address] Dr. Dwight Waters Platelet mean volume (Bld) [Entitic vol] 9.4 fL Critically low 9.5-13.5 [facility] Comment on above: Performed By: #### C BC #### [facility] [address] [place] [address] Dr. Dwight Waters PLT 265 103/ul Normal 150-450 [facility] Comment on above: Performed By: #### C BC #### [facility] [address] [place] [address] Dr. Dwight Waters RBC 5.69 106/ul Normal 4.70-6.10 [facility] Comment on above: Performed By: #### C BC #### [facility] [address] [place] [address] Dr. Dwight Waters WBC 6.6 103/ul Normal 4.0-11.0 [facility] Comment on above: Performed By: #### C BC #### [facility] [address] [place] [address] Dr. Dwight Waters GGTon 09-15-2022 Gamma glutamyl transferase [Catalytic activity/Vol] 23 U/L Normal 15-85 [facility] Comment on above: Performed By: #### U RTPCR #### [facility] [address] [place] [address] Dr. Dwight Waters MAGNESIUMon 09-15-2022 Magnesium [Mass/Vol] 1.8 mg/dL Normal 1.8-2.4 [facility] Comment on above: Performed By: #### U RTPCR #### [facility] [address] [place] [address] Dr. Dwight Waters RENAL FUNCTION PANELon 09-15 Albumin [Mass/Vol] 4.1 g/dL Normal 3.4-5.[address] [facility] Comment on above: Performed By: #### C BC #### [facility] [address] [place] [address] Dr. Dwight Waters Calcium [Mass/Vol] 9.3 mg/dL Normal 8.5-10.[address] [facility] Comment on above: Performed By: #### C BC #### [facility] [address] [address] [address] Dwight Waters Chloride [Moles/Vol] 107 mmol/L Normal 98-107 [facility] Comment on above: Performed By: #### C BC #### [facility] [address] [place] [address] Dr. Dwight Waters CO2 [Moles/Vol] 25.6 mmol/L Normal 21.0-32.[address] [facility] Comment on above: Performed By: #### C BC #### [facility] [address] [place] [address] Dr. Dwight Waters Creatinine [Mass/Vol] 1.01 mg/dL Normal 0.70-1.[address] [facility] Comment on above: Performed By: #### C BC #### [facility] [address] [place] [address] Dr. Dwight Waters EGFR-AF [place] ISLANDER >60 Normal >=[address] [facility] Comment on above: Performed By: #### C BC #### [facility] [address] [place] [address] Dr. Dwight Waters EGFR-NON AF [place] ISLANDER >60 Normal >=[address] [facility] Comment on above: Performed By: #### C BC #### [facility] [address] [place] [address] Dr. Dwight Waters Glucose [Mass/Vol] 119 mg/dL Critically high 74-106 [facility] Comment on above: Performed By: #### C BC #### [facility] [address] [place] [address] Dr. Dwight Waters Phosphate [Mass/Vol] 2.8 mg/dL Normal 2.6-4.[address] [facility] Comment on above: Performed By: #### C BC #### [facility] [address] [place] [address] Dr. Dwight Waters Potassium [Moles/Vol] 4.0 mmol/L Normal 3.5-5.1 [facility] Comment on above: Performed By: #### C BC #### [facility] [address] [place] [address] Dr. Dwight Waters Sodium [Moles/Vol] 141 mmol/L Normal 136-145 [facility] Comment on above: Performed By: #### C BC #### [facility] [address] [place] [address] Dr. Dwight Waters Urea nitrogen [Mass/Vol] 15.0 mg/dL Normal 7.0-18.0 [facility] Comment on above: Performed By: #### C BC #### [facility] [address] [place] [address] Dr. Dwight Waters SGOTon 09-15-2022 AST [Catalytic activity/Vol] 18 U/L Normal 15-37 [facility] Comment on above: Performed By: #### U RTPCR #### [facility] [address] [place] [address] Dr. Dwight Waters SGPTon 09-15-2022 ALT [Catalytic activity/Vol] 32 U/L Normal 16-63 [facility] Comment on above: Performed By: #### C BC #### [facility] [address] [place] [address] Dr. Dwight Waters URINE T PROTEIN CREAT RATIOo n 09-15-2022 Protein (U) [Mass/Vol] 14.1 mg/dL Critically high <=12.[address] [facility] Comment on above: Performed By: #### U RTPCR #### [facility] [address] [place] [address] Dr. Dwight Waters UR PROT CREAT RAT 0.14 Normal [facility] Comment on above: Performed By: #### U RTPCR #### [facility] [address] [place] [address] Dr. Dwight Waters URINE CREAT 98.89 mg/dL Normal 20.00-300.00 [facility] Comment on above: Performed By: #### U RTPCR #### [facility] [address] [address] [address] Dwight Waters US CAROTID ART BILon [...] MÓNICA JIMENEZ Date: 2022-08-28 13:20 Normal [facility] FK506 (TACROLIMUS) WHOLE BLO ODon 08-17-2022 Tacrolimus (FK506), Blood 9.9 ng/mL Normal 2.0-20.[address] [facility] Comment on above: Result Comment: Trou gh (immediately following transplant) 15.0 . Trough (steady state, 2 weeks or more after transplant): 3.0 - 8.0 . Performed by LC-MS/MS technology. Performed By: #### F [id number] #### [facility] [address] [place] [address] Dr. Dwight Waters BK VIRUS PCR QUANTon 022 BKV DNA QUANT PCR PLASMA Negative Normal Negative [facility] Comment on above: Result Comment: No B K DNA detected. . The linear range of the assay is 22 - 100,000,000 IU/mL. Performed By: #### U RTPCR #### [facility] [address] [place] [address] Dr. Dwight Waters Log10 BKV DNA Plasma Normal [facility] Comment on above: Performed By: #### U RTPCR #### [facility] [address] [place] [address] Dr. Dwight Waters ALBUMINon 08-14-2022 Albumin [Mass/Vol] 4.2 g/dL Normal 3.4-5.[address] [facility] Comment on above: Performed By: #### F [id number] #### [facility] [address] [place] [address] Dr. Dwight Waters ALKALINE PHOSPHAon 2 ALP [Catalytic activity/Vol] 92 U/L Normal 46-116 [facility] Comment on above: Performed By: #### C BC #### [facility] [address] [place] [address] Dr. Dwight Waters BILIRUBIN CONJUGATED (DIRECT )on 08-14-2022 BILI, CONJUGATED 0.3 mg/dL Critically high 0.0-0.2 [facility] Comment on above: Performed By: #### F [id number] #### [facility] [address] [place] [address] Dr. Dwight Waters BILIRUBIN TOTALon 08-14-2022 Bilirubin [Mass/Vol] 1.5 mg/dL Critically high 0.2-1.0 [facility] Comment on above: Performed By: #### F [id number] #### [facility] [address] [place] [address] Dr. Dwight Waters BUNon 08-14-2022 Urea nitrogen [Mass/Vol] 11.0 mg/dL Normal 7.0-18.0 [facility] Comment on above: Performed By: #### C BC #### [facility] [address] [place] [address] Dr. Dwight Waters CALCIUMon 08-14-2022 Calcium [Mass/Vol] 9.4 mg/dL Normal 8.5-10.[address] [facility] Comment on above: Performed By: #### F [id number] #### [facility] [address] [place] [address] Dr. Dwight Waters CBC AUTO DIFFon 08-14-2022 BASO # 0.0 103/ul Normal 0.0-0.[address] [facility] Comment on above: Performed By: #### C MP #### [facility] [address] [place] [address] Dr. Dwight Waters Basophils/100 WBC (Bld) 0.5 % Normal 0.2-2.0 [facility] Comment on above: Performed By: #### C MP #### [facility] [address] [place] [address] Dr. Dwight Waters EO # 0.2 103/ul Normal 0.0-0.7 [facility] Comment on above: Performed By: #### C MP #### [facility] [address] [place] [address] Dr. Dwight Waters Eosinophils/100 WBC (Bld) 2.6 % Normal 0.9-7.[address] [facility] Comment on above: Performed By: #### C MP #### [facility] [address] [place] [address] Dr. Dwight Waters Erythrocyte distribution width (RBC) [Ratio] 13.1 % Normal 11.0-15.[address] [facility] Comment on above: Performed By: #### C MP #### [facility] [address] [place] [address] Dr. Dwight Waters Hematocrit (Bld) [Volume fraction] 47.0 % Normal 42.0-54.[address] [facility] Comment on above: Performed By: #### C MP #### [facility] [address] [place] [address] Dr. Dwight Waters Hemoglobin (Bld) [Mass/Vol] 15.3 g/dL Normal 14.0-18.[address] [facility] Comment on above: Performed By: #### C MP #### [facility] [address] [place] [address] Dr. Dwight Waters IG # 0.01 10e3/ul Normal 0.00-0.[address] [facility] Comment on above: Performed By: #### C MP #### [facility] [address] [place] [address] Dr. Dwight Waters IG % 0.1 % Normal 0.0-0.5 [facility] Comment on above: Performed By: #### C MP #### [facility] [address] [place] [address] Dr. Dwight Waters LYMPH # 2.3 103/ul Normal 1.2-3.8 [facility] Comment on above: Performed By: #### C MP #### [facility] [address] [place] [address] Dr. Dwight Waters Lymphocytes/100 WBC (Bld) 29.8 % Normal 20.5-60.[address] [facility] Comment on above: Performed By: #### C MP #### [facility] [address] [place] [address] Dr. Dwight Waters MANUAL DIFF REQ NO Normal [facility] Comment on above: Performed By: #### C MP #### [facility] [address] [place] [address] Dr. Dwight Waters MCH (RBC) [Entitic mass] 28.2 pg Normal 25.9-34.[address] [facility] Comment on above: Performed By: #### C MP #### [facility] [address] [place] [address] Dr. Dwight Waters MCHC (RBC) [Mass/Vol] 32.6 g/dL Normal 29.9-35.[address] [facility] Comment on above: Performed By: #### C MP #### [facility] [address] [place] [address] Dr. Dwight Waters MCV (RBC) [Entitic vol] 86.7 fL Normal 80.0-94.[address] [facility] Comment on above: Performed By: #### C MP #### [facility] [address] [place] [address] Dr. Dwight Waters MONO # 0.7 103/ul Normal 0.3-0.[address] [facility] Comment on above: Performed By: #### C MP #### [facility] [address] [place] [address] Dr. Dwight Waters Monocytes/100 WBC (Bld) 8.5 % Normal 1.7-12.[address] [facility] Comment on above: Performed By: #### C MP #### [facility] [address] [place] [address] Dr. Dwight Waters NEUT # 4.5 103/ul Normal 1.4-6.5 [facility] Comment on above: Performed By: #### C MP #### [facility] [address] [place] [address] Dr. Dwight Waters Neutrophils/100 WBC (Bld) 58.5 % Normal 43.0-75.0 [facility] Comment on above: Performed By: #### C MP #### [facility] [address] [place] [address] Dr. Dwight Waters Platelet mean volume (Bld) [Entitic vol] 9.7 fL Normal 9.5-13.[address] [facility] Comment on above: Performed By: #### C MP #### [facility] [address] [place] [address] Dr. Dwight Waters PLT 266 103/ul Normal 150-450 [facility] Comment on above: Performed By: #### C MP #### [facility] [address] [place] [address] Dr. Dwight Waters RBC 5.42 106/ul Normal 4.70-6.10 [facility] Comment on above: Performed By: #### C MP #### [facility] [address] [place] [address] Dr. Dwight Waters WBC 7.6 103/ul Normal 4.0-11.0 [facility] Comment on above: Performed By: #### C MP #### [facility] [address] [place] [address] Dr. Dwight Waters CHLORIDEon 08-14-2022 Chloride [Moles/Vol] 104 mmol/L Normal 98-107 [facility] Comment on above: Performed By: #### C BC #### [facility] [address] [place] [address] Dr. Dwight Waters CO2on 08-14-2022 CO2 [Moles/Vol] 27.9 mmol/L Normal 21.0-32.0 [facility] Comment on above: Performed By: #### C BC #### [facility] [address] [place] [address] Dr. Dwight Waters CREATININEon 08-14-2022 Creatinine [Mass/Vol] 1.08 mg/dL Normal 0.70-1.30 [facility] Comment on above: Performed By: #### C BC #### [facility] [address] [place] [address] Dr. Dwight Waters EGFR-AF SOLOMON ISLANDER >60 Normal >=60 [facility] Comment on above: Performed By: #### C BC #### [facility] [address] [place] [address] Dr. Dwight Waters EGFR-NON AF SOL[place] ISLANDER >60 Normal >=[address] [facility] Comment on above: Performed By: #### C BC #### [facility] [address] [place] [address] Dr. Dwight Waters GGTon 08-14-2022 Gamma glutamyl transferase [Catalytic activity/Vol] 24 U/L Normal 15-[address] [facility] Comment on above: Performed By: #### F [id number] #### [facility] [address] [place] [address] Dr. Dwight Waters GLUCOSE BLOODon 08-14-2022 Glucose [Mass/Vol] 111 mg/dL Critically high 74-106 [facility] Comment on above: Performed By: #### C BC #### [facility] [address] [place] [address] Dr. Dwight Waters MAGNESIUMon 08-14-2022 Magnesium [Mass/Vol] 1.4 mg/dL Critically low 1.8-2.[address] [facility] Comment on above: Performed By: #### C BC #### [facility] [address] [place] [address] Dr. Dwight Waters NAon 08-14-2022 Sodium [Moles/Vol] 140 mmol/L Normal 136-[address] [facility] Comment on above: Performed By: #### F [id number] #### [facility] [address] [place] [address] Dr. Dwight Waters PHOSPHORUSon 08-14-2022 Phosphate [Mass/Vol] 3.1 mg/dL Normal 2.6-4.[address] [facility] Comment on above: Performed By: #### C BC #### [facility] [address] [place] [address] Dr. Dwight Waters POTASSIUMon 08-14-2022 Potassium [Moles/Vol] 3.5 mmol/L Normal 3.5-5.[address] [facility] Comment on above: Performed By: #### C BC #### [facility] [address] [place] [address] Dr. Dwight Waters SGOTon 08-14-2022 AST [Catalytic activity/Vol] 17 U/L Normal 15-37 [facility] Comment on above: Performed By: #### F K506T #### [facility] [address] [place] [address] Dr. Dwight Waters SGPTon 08-14-2022 ALT [Catalytic activity/Vol] 22 U/L Normal 16-63 [facility] Comment on above: Performed By: #### F K506T #### [facility] [address] [place] [address] Dr. Dwight Waters URINE T PROTEIN CREAT RATIOo n 08-14-2022 Protein (U) [Mass/Vol] 10.7 mg/dL Normal <=12.[address] [facility] Comment on above: Performed By: #### F K506T #### [facility] [address] [place] [address] Dr. Dwight Waters UR PROT CREAT RAT 0.[address] [facility] Comment on above: Performed By: #### F K506T #### [facility] [address] [place] [address] Dr. Dwight Watres URINE CREAT 104.28 mg/dL Normal 20.00-300.[address] [facility] Comment on above: Performed By: #### F K506T #### [facility] [address] [place] [address] Dr. Dwight Waters NEPHROSTOMY TUBE REMOVALon 0 [...] Assisting physician present for entire procedure: yes [facility] Radiology Study observation (narrative) [facility] FK506 (TACROLIMUS) WHOLE BLO ODon 07-06-2022 Tacrolimus (FK506), Blood 9.5 ng/mL Normal 2.0-20.[address] [facility] Comment on above: Result Comment: Trou gh (immediately following transplant) 15.0 . Trough (steady state, 2 weeks or more after transplant): 3.0 - 8.0 . Performed by LC-MS/MS technology. Performed By: #### C MP #### [facility] [address] [place] [address] Dr. Dwight Waters ALBUMINon 07-03-2022 Albumin [Mass/Vol] 3.7 g/dL Normal 3.4-5.[address] [facility] Comment on above: Performed By: #### U RTPCR #### [facility] [address] [place] [address] Dr. Dwight Waters ALKALINE PHOSPHAon ALP [Catalytic activity/Vol] 76 U/L Normal 46-116 [facility] Comment on above: Performed By: #### U RTPCR #### [facility] [address] [place] [address] Dr. Dwight Waters BILIRUBIN CONJUGATED (DIRECT )on 07-03-2022 BILI, CONJUGATED 0.3 mg/dL Critically high 0.0-0.[address] [facility] Comment on above: Performed By: #### C BC #### [facility] [address] [place] [address] Dr. Dwight Waters BILIRUBIN TOTALon 07-03-2022 Bilirubin [Mass/Vol] 1.4 mg/dL Critically high 0.2-1.[address] [facility] Comment on above: Performed By: #### C BC #### [facility] [address] [place] [address] Dr. Dwight Waters BUNon 07-03-2022 Urea nitrogen [Mass/Vol] 15.0 mg/dL Normal 7.0-18.0 [facility] Comment on above: Performed By: #### C BC #### [facility] [address] [place] [address] Dr. Dwight Waters CALCIUMon 07-03-2022 Calcium [Mass/Vol] 9.4 mg/dL Normal 8.5-10.1 [facility] Comment on above: Performed By: #### U RTPCR #### [facility] [address] [place] [address] Dr. Dwight Waters CBC AUTO DIFFon 07-03-2022 BASO # 0.0 103/ul Normal 0.0-0.[address] [facility] Comment on above: Performed By: #### U RTPCR #### [facility] [address] [place] [address] Dr. Dwight Waters Basophils/100 WBC (Bld) 0.6 % Normal 0.2-2.[address] [facility] Comment on above: Performed By: #### U RTPCR #### [facility] [address] [place] [address] Dr. Dwight Waters EO # 0.2 103/ul Normal 0.0-0.7 [facility] Comment on above: Performed By: #### U RTPCR #### [facility] [address] [place] [address] Dr. Dwight Waters Eosinophils/100 WBC (Bld) 3.5 % Normal 0.9-7.0 [facility] Comment on above: Performed By: #### U RTPCR #### [facility] [address] [place] [address] Dr. Dwight Waters Erythrocyte distribution width (RBC) [Ratio] 12.9 % Normal 11.0-15.0 [facility] Comment on above: Performed By: #### U RTPCR #### [facility] [address] [place] [address] Dr. Dwight Waters Hematocrit (Bld) [Volume fraction] 44.2 % Normal 42.0-54.[address] [facility] Comment on above: Performed By: #### U RTPCR #### [facility] [address] [place] [address] Dr. Dwight Waters Hemoglobin (Bld) [Mass/Vol] 14.6 g/dL Normal 14.0-18.[address] [facility] Comment on above: Performed By: #### U RTPCR #### [facility] [address] [place] [address] Dr. Dwight Waters IG # 0.02 10e3/ul Normal 0.00-0.[address] [facility] Comment on above: Performed By: #### U RTPCR #### [facility] [address] [place] [address] Dr. Dwight Waters IG % 0.3 % Normal 0.0-0.[address] [facility] Comment on above: Performed By: #### U RTPCR #### [facility] [address] [place] [address] Dr. Dwight Waters LYMPH # 2.0 103/ul Normal 1.2-3.[address] [facility] Comment on above: Performed By: #### U RTPCR #### [facility] [address] [place] [address] Dr. Dwight Waters Lymphocytes/100 WBC (Bld) 28.4 % Normal 20.5-60.[address] [facility] Comment on above: Performed By: #### U RTPCR #### [facility] [address] [place] [address] Dr. Dwight Waters MANUAL DIFF REQ NO Normal [facility] Comment on above: Performed By: #### U RTPCR #### [facility] [address] [place] [address] Dr. Dwight Waters MCH (RBC) [Entitic mass] 28.6 pg Normal 25.9-34.[address] [facility] Comment on above: Performed By: #### U RTPCR #### [facility] [address] [address] [address] Dwight Waters MCHC (RBC) [Mass/Vol] 33.0 g/dL Normal 29.9-35.[address] [facility] Comment on above: Performed By: #### U RTPCR #### [facility] [address] [place] [address] Dr. Dwight Waters MCV (RBC) [Entitic vol] 86.7 fL Normal 80.0-94.[address] [facility] Comment on above: Performed By: #### U RTPCR #### [facility] [address] [place] [address] Dr. Dwight Waters MONO # 0.6 103/ul Normal 0.3-0.[address] [facility] Comment on above: Performed By: #### U RTPCR #### [facility] [address] [place] [address] Dr. Dwight Waters Monocytes/100 WBC (Bld) 9.1 % Normal 1.7-12.[address] [facility] Comment on above: Performed By: #### U RTPCR #### [facility] [address] [place] [address] Dr. Dwight Waters NEUT # 4.0 103/ul Normal 1.4-6.[address] [facility] Comment on above: Performed By: #### U RTPCR #### [facility] [address] [place] [address] Dr. Dwight Waters Neutrophils/100 WBC (Bld) 58.1 % Normal 43.0-75.[address] [facility] Comment on above: Performed By: #### U RTPCR #### [facility] [address] [place] [address] Dr. Dwight Waters Platelet mean volume (Bld) [Entitic vol] 9.5 fL Normal 9.5-13.[address] [facility] Comment on above: Performed By: #### U RTPCR #### [facility] [address] [place] [address] Dr. Dwight Waters PLT 292 103/ul Normal 150-450 [facility] Comment on above: Performed By: #### U RTPCR #### [facility] [address] [place] [address] Dr. Dwight Waters RBC 5.10 106/ul Normal 4.70-6.10 [facility] Comment on above: Performed By: #### U RTPCR #### [facility] [address] [place] [address] Dr. Dwight Waters WBC 6.9 103/ul Normal 4.0-11.[address] [facility] Comment on above: Performed By: #### U RTPCR #### [facility] [address] [place] [address] Dr. Dwight Waters CHLORIDEon 07-03-2022 Chloride [Moles/Vol] 108 mmol/L Critically high 98-[address] [facility] Comment on above: Performed By: #### C BC #### [facility] [address] [place] [address] Dr. Dwight Waters CO2on 07-03-2022 CO2 [Moles/Vol] 25.2 mmol/L Normal 21.0-32.[address] [facility] Comment on above: Performed By: #### C BC #### [facility] [address] [place] [address] Dr. Dwight Waters CREATININEon 07-03-2022 Creatinine [Mass/Vol] 1.03 mg/dL Normal 0.70-1.[address] [facility] Comment on above: Performed By: #### U RTPCR #### [facility] [address] [place] [address] Dr. Dwight Waters EGFR-AF SOL[place] ISLANDER >60 Normal >=60 [facility] Comment on above: Performed By: #### U RTPCR #### [facility] [address] [place] [address] Dr. Dwight Waters EGFR-NON AF [place] ISLANDER >60 Normal >=[address] [facility] Comment on above: Performed By: #### U RTPCR #### [facility] [address] [place] [address] Dr. Dwight Waters GGTon 07-03-2022 Gamma glutamyl transferase [Catalytic activity/Vol] 31 U/L Normal 15-85 [facility] Comment on above: Performed By: #### U RTPCR #### [facility] [address] [place] [address] Dr. Dwight Waters GLUCOSE BLOODon 07-03-2022 Glucose [Mass/Vol] 119 mg/dL Critically high 74-106 [facility] Comment on above: Performed By: #### U RTPCR #### [facility] [address] [place] [address] Dr. Dwight Waters MAGNESIUMon 07-03-2022 Magnesium [Mass/Vol] 1.4 mg/dL Critically low 1.8-2.[address] [facility] Comment on above: Performed By: #### C BC #### [facility] [address] [place] [address] Dr. Dwight Waters NAon 07-03-2022 Sodium [Moles/Vol] 142 mmol/L Normal 136-[address] [facility] Comment on above: Performed By: #### C MP #### [facility] [address] [place] [address] Dr. Dwight Waters PHOSPHORUSon 07-03-2022 Phosphate [Mass/Vol] 3.4 mg/dL Normal 2.6-4.[address] [facility] Comment on above: Performed By: #### C BC #### [facility] [address] [place] [address] Dr. Dwight Waters POTASSIUMon 07-03-2022 Potassium [Moles/Vol] 4.1 mmol/L Normal 3.5-5.[address] [facility] Comment on above: Performed By: #### C BC #### [facility] [address] [place] [address] Dr. Dwight Waters SGOTon 07-03-2022 AST [Catalytic activity/Vol] 14 U/L Critically low 15-37 [facility] Comment on above: Performed By: #### C BC #### [facility] [address] [place] [address] Dr. Dwight Waters SGPTon 07-03-2022 ALT [Catalytic activity/Vol] 25 U/L Normal 16-63 [facility] Comment on above: Performed By: #### C BC #### [facility] [address] [address] [address] Dwight Waters US KIDNEYSon 07-03-2022 US KIDNEYS Ultrasound kidneys, bilateral HISTORY: Transplant of kidney , pain in the right lower quadrant COMPARISON: None. TECHNIQUE: Transabdominal ultrasound imaging of both kidneys was performed. FINDINGS: The zuni kidneys are diffusely echogenic and atrophic with cortical thinning. The right kidney measures 8.3 x 3.5 x 4.07 m and the left measures 9.9 x 3.8 x 3.6 cm. No hydronephrosis of the zuni kidneys. There is a renal transplant in [...] stone involving the renal transplant. 2. Atrophic zuni kidneys. 3. Normal bladder. Electronically authenticated by: ARCELIA PIZARRO Date: 2022-07-03 17:22 Normal [facility] CT Abdomen and Pelvis WO con traston 06-27-2022 IMPRESSION: 1. Both zuni kidneys are atrophic with improvement in right-sided [...] Adrenals: Adrenal glands are unremarkable. Kidneys: Both zuni kidneys are atrophic. Interval improvement in right zuni kidney hydronephrosis since May 15, 2022. Status [...] spine. No aggressive osseous lesions. RADIOLOGY Gera uL MD - 06/27/2022 EXAM: CT ABDOMEN/PELVIS WITHOUT [...] Adrenals: Adrenal glands are unremarkable. Kidneys: Both zuni kidneys are atrophic. Interval improvement in right zuni kidney hydronephrosis since May 15, 2022. Status [...] aggressive osseous lesions. IMPRESSION IMPRESSION: 1. Both zuni kidneys are atrophic with improvement in right-sided hydronephrosis since May 15, 2022. 2. 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 No hydronephrosis. No discrete perinephric collection. 3. Partially imaged postsurgical changes related to prior liver transplant. 4. The bladder is decompressed, limiting evaluation. U [facility] con trastOrdered By: Gera Lu on 06-27-2022 [facility] Work Phone: CBC AUTO DIFFon 06-18-2022 BASO # 0.0 103/ul Normal 0.0-0.[address] [facility] Comment on above: Performed By: #### U RTPCR #### [facility] [address], [place] [address] Dr. Dwight Waters Basophils/100 WBC (Bld) 0.5 % Normal 0.2-2.0 [facility] Comment on above: Performed By: #### U RTPCR #### [facility] [address] [place], [place] [address] Dr. Dwight Waters EO # 0.2 103/ul Normal 0.0-0.[address] [facility] Comment on above: Performed By: #### U RTPCR #### [facility] [address] [place] [address] Dr. Dwight Waters Eosinophils/100 WBC (Bld) 2.3 % Normal 0.9-7.[address] [facility] Comment on above: Performed By: #### U RTPCR #### [facility] [address] [place] [address] Dr. Dwight Waters Erythrocyte distribution width (RBC) [Ratio] 12.9 % Normal 11.0-15.[address] [facility] Comment on above: Performed By: #### U RTPCR #### [facility] [address] [place] [address] Dr. Dwight Waters Hematocrit (Bld) [Volume fraction] 41.2 % Critically low 42.0-54.[address] [facility] Comment on above: Performed By: #### U RTPCR #### [facility] [address] [place] [address] Dr. Dwight Waters Hemoglobin (Bld) [Mass/Vol] 13.3 g/dL Critically low 14.0-18.[address] [facility] Comment on above: Performed By: #### U RTPCR #### [facility] [address] [place] [address] Dr. Dwight Waters IG # 0.04 10e3/ul Critically high 0.00-0.[address] [facility] Comment on above: Performed By: #### U RTPCR #### [facility] [address] [place] [address] Dr. Dwight Waters IG % 0.5 % Normal 0.0-0.[address] [facility] Comment on above: Performed By: #### U RTPCR #### [facility] [address] [place] [address] Dr. Dwight Waters LYMPH # 2.0 103/ul Normal 1.2-3.8 [facility] Comment on above: Performed By: #### U RTPCR #### [facility] [address] [place] [address] Dr. Dwight Waters Lymphocytes/100 WBC (Bld) 22.9 % Normal 20.5-60.[address] [facility] Comment on above: Performed By: #### U RTPCR #### [facility] [address] [place] [address] Dr. Dwight Waters MANUAL DIFF REQ NO Normal [facility] Comment on above: Performed By: #### U RTPCR #### [facility] [address] [place] [address] Dr. Dwight Waters MCH (RBC) [Entitic mass] 28.7 pg Normal 25.9-34.[address] [facility] Comment on above: Performed By: #### U RTPCR #### [facility] [address] [place] [address] Dr. Dwight Waters MCHC (RBC) [Mass/Vol] 32.3 g/dL Normal 29.9-35.[address] [facility] Comment on above: Performed By: #### U RTPCR #### [facility] [address] [place] [address] Dr. Dwight Waters MCV (RBC) [Entitic vol] 88.8 fL Normal 80.0-94.[address] [facility] Comment on above: Performed By: #### U RTPCR #### [facility] [address] [place] [address] Dr. Dwight Waters MONO # 0.8 103/ul Normal 0.3-0.[address] [facility] Comment on above: Performed By: #### U RTPCR #### [facility] [address] [place] [address] Dr. Dwight Waters Monocytes/100 WBC (Bld) 9.7 % Normal 1.7-12.[address] [facility] Comment on above: Performed By: #### U RTPCR #### [facility] [address] [place] [address] Dr. Dwight Waters NEUT # 5.6 103/ul Normal 1.4-6.[address] [facility] Comment on above: Performed By: #### U RTPCR #### [facility] [address] [place] [address] Dr. Dwight Waters Neutrophils/100 WBC (Bld) 64.1 % Normal 43.0-75.[address] [facility] Comment on above: Performed By: #### U RTPCR #### [facility] [address] [address] [address] Dwight Waters Platelet mean volume (Bld) [Entitic vol] 10.0 fL Normal 9.5-13.[address] [facility] Comment on above: Performed By: #### U RTPCR #### [facility] [address] [address] [address] Dwight Waters PLT 270 103/ul Normal 150-[address] [facility] Comment on above: Performed By: #### U RTPCR #### [facility] [address] [address] [address] Dwight Waters RBC 4.64 106/ul Critically low 4.70-6.[address] [facility] Comment on above: Performed By: #### U RTPCR #### [facility] [address] [place] [address] Dr. Dwight Waters WBC 8.7 103/ul Normal 4.0-11.[address] [facility] Comment on above: Performed By: #### U RTPCR #### [facility] [address] [place] [address] Dr. Dwight Waters CULTURE URINEon 06-18-2022 CULTURE URINE Culture Observations : NO GROWTH. Normal [facility] Comment on above: Performed By: #### U RTPCR #### [facility] [address] [place] [address] Dr. Dwight Waters Covid-19 PCR ([facility])on 05-31 SARS-CoV-2 (COVID-19) RNA ESTELITA+probe Ql (Unsp spec) Not detected Normal NOT DETECTED [facility] Comment on above: Result Comment: [...] for this test is supported by the [place] of Health and Human Service's declaration that [...] used). Performed By: #### C BC #### [facility] [address] [place] [address] Dr. Dwight Waters ER URINE PROFILEon 2 Bilirubin Ql (U) Negative Normal NEGATIVE [facility] Comment on above: Performed By: #### U RTPCR #### [facility] [address] [place] [address] Dr. Dwight Waters Clarity (U) CLEAR Normal CLEAR [facility] Comment on above: Performed By: #### U RTPCR #### [facility] [address] [place] [address] Dr. Dwight Waters Color (U) YELLOW Normal YELLOW [facility] Comment on above: Performed By: #### U RTPCR #### [facility] [address] [place] [address] Dr. Dwight SHARMA A micrscopic examina tion will be performed if indicated. Normal [facility] Comment on above: Performed By: #### U RTPCR #### [facility] [address] [place] [address] Dr. Dwight Waters Glucose Ql (U) Negative Normal NEGATIVE [facility] Comment on above: Performed By: #### U RTPCR #### [facility] [address] [place] [address] Dr. Dwight Waters Hemoglobin Ql (U) LARGE Abnormal NEGATIVE [facility] Comment on above: Performed By: #### U RTPCR #### [facility] [address] [place] [address] Dr. Dwight Waters Ketones Ql (U) Negative Normal NEGATIVE [facility] Comment on above: Performed By: #### U RTPCR #### [facility] [address] [place] [address] Dr. Dwight Waters LEUKOCYTES TRACE Abnormal NEGATIVE [facility] Comment on above: Performed By: #### U RTPCR #### [facility] [address] [address] [address] Dwight Waters Nitrite Ql (U) Negative Normal NEGATIVE [facility] Comment on above: Performed By: #### U RTPCR #### [facility] [address] [place] [address] Dr. Dwight Waters pH (U) 6.0 [pH] Normal 5-[address] [facility] Comment on above: Performed By: #### U RTPCR #### [facility] [address] [place] [address] Dr. Dwight Waters Protein (U) [Mass/Vol] 30 mg/dL Abnormal NEGATIVE/ TRACE [facility] Comment on above: Performed By: #### U RTPCR #### [facility] [address] [place] [address] Dr. Dwight Waters SPEC GRAVITY >=1.030 Abnormal 1.005-<=1.[address] [facility] Comment on above: Performed By: #### U RTPCR #### [facility] [address] [place] [address] Dr. Dwight Waters UR MICRO IND INDICATED Normal [facility] Comment on above: Performed By: #### U RTPCR #### [facility] [address] [place] [address] Dr. Dwight Waters Urobilinogen Qn (U) 0.2 {Alyssa'U}/dL Normal 0.2 - 1. [address] [facility] Comment on above: Performed By: #### U RTPCR #### [facility] [address] [place] [address] Dr. Dwight Waters PROF 14(COMP METB)on 022 Albumin [Mass/Vol] 3.7 g/dL Normal 3.4-5.[address] [facility] Comment on above: Performed By: #### C MP #### [facility] [address] [place] [address] Dr. Dwight Waters Albumin/Globulin [Mass ratio] 0.9 {ratio} Normal [facility] Comment on above: Performed By: #### C MP #### [facility] [address] [place] [address] Dr. Dwight Waters ALP [Catalytic activity/Vol] 80 U/L Normal 46-[address] [facility] Comment on above: Performed By: #### C MP #### [facility] [address] [place] [address] Dr. Dwight Waters ALT [Catalytic activity/Vol] 24 U/L Normal 16-63 [facility] Comment on above: Performed By: #### C MP #### [facility] [address] [place] [address] Dr. Dwight Waters Anion gap [Moles/Vol] 12.9 mmol/L Normal [facility] Comment on above: Performed By: #### C MP #### [facility] [address] [place] [address] Dr. Dwight Waters AST [Catalytic activity/Vol] 17 U/L Normal 15-[address] [facility] Comment on above: Performed By: #### C MP #### [facility] [address] [place] [address] Dr. Dwight Waters Bilirubin [Mass/Vol] 0.8 mg/dL Normal 0.2-1.[address] [facility] Comment on above: Performed By: #### C MP #### [facility] [address] [place] [address] Dr. Dwight Waters Calcium [Mass/Vol] 9.4 mg/dL Normal 8.5-10.1 [facility] Comment on above: Performed By: #### C MP #### [facility] [address] [place] [address] Dr. Dwight Waters Chloride [Moles/Vol] 106 mmol/L Normal 98-107 [facility] Comment on above: Performed By: #### C MP #### [facility] [address] [place] [address] Dr. Dwight Waters CO2 [Moles/Vol] 25.3 mmol/L Normal 21.0-32.0 [facility] Comment on above: Performed By: #### C MP #### [facility] [address] [address] [address] Dwight Waters Creatinine [Mass/Vol] 1.29 mg/dL Normal 0.70-1.30 [facility] Comment on above: Performed By: #### C MP #### [facility] [address] [address] [address] Dwight Waters EGFR-AF [place] >60 Normal >=60 [facility] Comment on above: Performed By: #### C MP #### [facility] [address] [address] [address] Dwight Waters EGFR-NON AF [place] 59 mL/min/1.73m2 Critically low >=60 [facility] Comment on above: Performed By: #### C MP #### [facility] [address] [place] [address] Dr. Dwight Waters Globulin (S) [Mass/Vol] 4.2 g/dL Normal [facility] Comment on above: Performed By: #### C MP #### [facility] [address] [place] [address] Dr. Dwight Waters Glucose [Mass/Vol] 106 mg/dL Normal 74-106 [facility] Comment on above: Performed By: #### C MP #### [facility] [address] [place] [address] Dr. Dwight Waters Potassium [Moles/Vol] 4.2 mmol/L Normal 3.5-5.1 [facility] Comment on above: Performed By: #### C MP #### [facility] [address] [place] [address] Dr. Dwight Waters Protein [Mass/Vol] 7.9 g/dL Normal 6.4-8.2 [facility] Comment on above: Performed By: #### C MP #### [facility] [address] [place] [address] Dr. Dwight Waters Sodium [Moles/Vol] 140 mmol/L Normal 136-145 [facility] Comment on above: Performed By: #### C MP #### [facility] [address] [place] [address] Dr. Dwight Waters Urea nitrogen [Mass/Vol] 22.0 mg/dL Critically high 7.0-18.0 [facility] Comment on above: Performed By: #### C MP #### [facility] [address] [place] [address] Dr. Dwight Waters Urea nitrogen/Creatinine [Mass ratio] 17.1 mg/mg Normal [facility] Comment on above: Performed By: #### C MP #### [facility] [address] [place] [address] Dr. Dwight Waters URINE MICROSCOPIC ONLYon BACTERIA TRACE Abnormal NONE SEEN [facility] Comment on above: Performed By: #### U RTPCR #### [facility] [address] [place] [address] Dr. Dwight Waters Bacteria identified Cx Nom (U) INDICATED Normal [facility] Comment on above: Performed By: #### U RTPCR #### [facility] [address] [place] [address] Dr. Dwight Waters CAST NONE SEEN Normal NONE SEEN [facility] Comment on above: Performed By: #### U RTPCR #### [facility] [address] [place] [address] Dr. Dwight Waters Crystals LM Nom (Urine sed) NONE SEEN Normal NONE SEEN [facility] Comment on above: Performed By: #### U RTPCR #### [facility] [address] [place] [address] Dr. Dwight Waters Epithelial cells LM Ql (Urine sed) NONE SEEN Normal NONE SEEN /RARE [facility] Comment on above: Performed By: #### U RTPCR #### [facility] [address] [place] [address] Dr. Dwight Waters MUCOUS NONE SEEN Normal NONE SEEN [facility] Comment on above: Performed By: #### U RTPCR #### [facility] [address] [place] [address] Dr. Dwight Waters RBC 5-10 Abnormal 0-2 [facility] Comment on above: Performed By: #### U RTPCR #### [facility] [address] [place] [address] Dr. Dwight Waters WBC 10-20 Abnormal NONE SEEN [facility] Comment on above: Performed By: #### U RTPCR #### [facility] [address] [address] [address] Dwight Waters ALLOSCREEN RECIPIENT (POST T [...] need for FDA approval.Testing performed by the [facility] Clinical Histocompatibility Laboratory. [facility] number: [id number]. CLIA number: [id number], Director: Carlito Merchant, PhD, D([facility] ANTIBODY SPECIFICITY INTERPRETATION Detected [facility] CLASS I SPECIFICITIES Not detected [facility] CLASS II SPECIFICITIES Not detected [facility] HLA Ab (S) 0 % 0 [facility] EXTRA MICROon 06-13-2022 [facility] RBC (Bld) [#/Vol] 4.85 10*6/uL [facility] WBC (Bld) [#/Vol] 7.68 10*3/uL 3.73 - 10. 10 K/uL [facility] CHEM 7 (LYTES,BUN,CREA,GLUC) on 06-12-2022 [...] rate/Area] 69 >=60 mL/min/1.73m 2 [facility] Comment on above: [...] [Mass/Vol] 18 mg/dL 7 - 25 mg[facility] Urea nitrogen/Creatinine [Mass ratio] 14 mg/mg [facility] GGTon 06-12-2022 Gamma glutamyl transferase [Catalytic activity/Vol] 20 U/L 8 - 64 U/L [facility] HEMOGLOBIN [id number] By: Link Roche on 06-12-2022 Average glucose Estimated from glycated hemoglobin (Bld) [Mass/Vol] 126 mg/dL [facility] HbA1c (Bld) [Mass fraction] 6.0 % High 4.7 - 5.6 % [facility] Interpretation and review of laboratory results Abnormal [facility] HEPATIC FUNCTION PANELon Albumin [Mass/Vol] [...] Interpretation and review of laboratory results Normal [facility] PTH INTACTOrdered By: Marli Lizarraga on 06-12-2022 Interpretation and review of laboratory results Abnormal [facility] Parathyrin.intact [Mass/Vol] 79.7 pg/mL High 14.0 - 72.0 pg/mL [facility] URINALYSIS REFLEX TO CULTURE PERFORMABLEon 06-12-2022 Appearance (U) Clear Clear [facility] Bacteria LM Ql (Urine sed) ABSENT ABSENT [facility] Color (U) Yellow Yellow [facility] Epithelial cells.squamous LM Ql (Urine sed) 1/hpf = 1+ 1/hpf = 1+, 2-5/hpf = 2+, 0/hpf = 0+, ABSENT [facility] Glucose Test strip (U) [Mass/Vol] Negative Negative [facility] Interpretation and review of laboratory results Abnormal [facility] Ketones (U) [Mass/Vol] Trace Abnormal Negative [facility] Leukocyte esterase Test strip Ql (U) Small Abnormal Negative [facility] Nitrite Ql (U) Negative Negative [facility] pH (U) 5.5 [pH] 5.0 - 7.0 [facility] Protein (U) [Mass/Vol] 30 mg/dL Abnormal Negative [facility] RBC (U) [#/Vol] Trace Abnormal Negative [facility] RBC LM.HPF (Urine sed) [#/Area] 0-2 0 - 2 /HPF [facility] Specific gravity (U) [Rel density] 1.026 [facility] Urobilinogen (U) [Mass/Vol] 0.2 E.U./dL 0.2 E.U/dL, 1.0 E.U/dL [facility] WBC LM.HPF (Urine sed) [#/Area] 10-20 Abnormal 0 - 5 /HPF [facility] URINE PROTEIN/CREA RATIO, RA NDOMon 06-12-2022 Creatinine (24H U) [Mass/Vol] 231.68 mg/dL [facility] Protein Unsp time (U) [Mass/Vol] 49 mg/dL [facility] Protein/Creatinine (U) [Mass ratio] 0.211 mg[facility]g [facility] FK506 (TACROLIMUS) WHOLE BLO ODon 06-09-2022 Tacrolimus (FK506), Blood 9.8 ng/mL Normal 2.0-20.0 [facility] Comment on above: Result Comment: Trou gh (immediately following transplant) 15.0 . Trough (steady state, 2 weeks or more after transplant): 3.0 - 8.0 . Performed by LC-MS/MS technology. Performed By: #### U RTPCR #### [facility] [address] [place] [address] Dr. Dwight Waters ALBUMINon 06-06-2022 Albumin [Mass/Vol] 3.8 g/dL Normal 3.4-5.0 [facility] Comment on above: Performed By: #### C MP #### [facility] [address] [place] [address] Dr. Dwight Waters ALKALINE PHOSPHAon ALP [Catalytic activity/Vol] 82 U/L Normal 46-116 [facility] Comment on above: Performed By: #### C MP #### [facility] [address] [place] [address] Dr. Dwight Waters BILIRUBIN CONJUGATED (DIRECT )on 06-06-2022 BILI, CONJUGATED 0.2 mg/dL Normal 0.0-0.2 [facility] Comment on above: Performed By: #### C BC #### [facility] [address] [place] [address] Dr. Dwight Waters BILIRUBIN TOTALon 06-06-2022 Bilirubin [Mass/Vol] 1.0 mg/dL Normal 0.2-1.0 [facility] Comment on above: Performed By: #### C BC #### [facility] [address] [place] [address] Dr. Dwight Waters BUNon 06-06-2022 Urea nitrogen [Mass/Vol] 18.0 mg/dL Normal 7.0-18.0 [facility] Comment on above: Performed By: #### C BC #### [facility] [address] [place] [address] Dr. Dwight Waters CALCIUMon 06-06-2022 Calcium [Mass/Vol] 9.4 mg/dL Normal 8.5-10.1 [facility] Comment on above: Performed By: #### C MP #### [facility] [address] [place] [address] Dr. Dwight Waters CBC AUTO DIFFon 06-06-2022 BASO # 0.1 103/ul Normal 0.0-0.[address] [facility] Comment on above: Performed By: #### U RTPCR #### [facility] [address] [place] [address] Dr. Dwight Waters Basophils/100 WBC (Bld) 0.8 % Normal 0.2-2.[address] [facility] Comment on above: Performed By: #### U RTPCR #### [facility] [address] [place] [address] Dr. Dwight Waters EO # 0.3 103/ul Normal 0.0-0.[address] [facility] Comment on above: Performed By: #### U RTPCR #### [facility] [address] [place] [address] Dr. Dwight Waters Eosinophils/100 WBC (Bld) 3.3 % Normal 0.9-7.[address] [facility] Comment on above: Performed By: #### U RTPCR #### [facility] [address] [place] [address] Dr. Dwight Waters Erythrocyte distribution width (RBC) [Ratio] 12.4 % Normal 11.0-15.[address] [facility] Comment on above: Performed By: #### U RTPCR #### [facility] [address] [place] [address] Dr. Dwight Waters Hematocrit (Bld) [Volume fraction] 45.1 % Normal 42.0-54.[address] [facility] Comment on above: Performed By: #### U RTPCR #### [facility] [address] [place] [address] Dr. Dwight Waters Hemoglobin (Bld) [Mass/Vol] 14.4 g/dL Normal 14.0-18.0 [facility] Comment on above: Performed By: #### U RTPCR #### [facility] [address] [place] [address] Dr. Dwight Waters IG # 0.01 10e3/ul Normal 0.00-0.[address] [facility] Comment on above: Performed By: #### U RTPCR #### [facility] [address] [place] [address] Dr. Dwight Waters IG % 0.1 % Normal 0.0-0.[address] [facility] Comment on above: Performed By: #### U RTPCR #### [facility] [address] [place] [address] Dr. Dwight Waters LYMPH # 2.2 103/ul Normal 1.2-3.[address] [facility] Comment on above: Performed By: #### U RTPCR #### [facility] [address] [place] [address] Dr. Dwight Waters Lymphocytes/100 WBC (Bld) 30.0 % Normal 20.5-60.[address] [facility] Comment on above: Performed By: #### U RTPCR #### [facility] [address] [place] [address] Dr. Dwight Waters MANUAL DIFF REQ NO Normal [facility] Comment on above: Performed By: #### U RTPCR #### [facility] [address] [place] [address] Dr. Dwight Waters MCH (RBC) [Entitic mass] 28.2 pg Normal 25.9-34.[address] [facility] Comment on above: Performed By: #### U RTPCR #### [facility] [address] [place] [address] Dr. Dwight Waters MCHC (RBC) [Mass/Vol] 31.9 g/dL Normal 29.9-35.[address] [facility] Comment on above: Performed By: #### U RTPCR #### [facility] [address] [place] [address] Dr. Dwight Waters MCV (RBC) [Entitic vol] 88.3 fL Normal 80.0-94.[address] [facility] Comment on above: Performed By: #### U RTPCR #### [facility] [address] [place] [address] Dr. Dwight Waters MONO # 0.6 103/ul Normal 0.3-0.[address] [facility] Comment on above: Performed By: #### U RTPCR #### [facility] [address] [place] [address] Dr. Dwight Waters Monocytes/100 WBC (Bld) 8.2 % Normal 1.7-12.0 [facility] Comment on above: Performed By: #### U RTPCR #### [facility] [address] [place] [address] Dr. Dwight Waters NEUT # 4.3 103/ul Normal 1.4-6.5 [facility] Comment on above: Performed By: #### U RTPCR #### [facility] [address] [place] [address] Dr. Dwight Waters Neutrophils/100 WBC (Bld) 57.6 % Normal 43.0-75.0 [facility] Comment on above: Performed By: #### U RTPCR #### [facility] [address] [place] [address] Dr. Dwight Waters Platelet mean volume (Bld) [Entitic vol] 9.7 fL Normal 9.5-13.5 [facility] Comment on above: Performed By: #### U RTPCR #### [facility] [address] [place] [address] Dr. Dwight Waters PLT 297 103/ul Normal 150-450 [facility] Comment on above: Performed By: #### U RTPCR #### [facility] [address] [place] [address] Dr. Dwight Waters RBC 5.11 106/ul Normal 4.70-6.10 [facility] Comment on above: Performed By: #### U RTPCR #### [facility] [address] [place] [address] Dr. Dwight Waters WBC 7.5 103/ul Normal 4.0-11.0 [facility] Comment on above: Performed By: #### U RTPCR #### [facility] [address] [place] [address] Dr. Dwight Waters CHLORIDEon 06-06-2022 Chloride [Moles/Vol] 107 mmol/L Normal 98-107 [facility] Comment on above: Performed By: #### C BC #### [facility] [address] [place] [address] Dr. Dwight Waters CO2on 06-06-2022 CO2 [Moles/Vol] 27.4 mmol/L Normal 21.0-32.[address] [facility] Comment on above: Performed By: #### C BC #### [facility] [address] [place] [address] Dr. Dwight Waters CREATININEon 06-06-2022 Creatinine [Mass/Vol] 1.20 mg/dL Normal 0.70-1.30 [facility] Comment on above: Performed By: #### C BC #### [facility] [address] [place] [address] Dr. Dwight Waters EGFR-AF [place] >60 Normal >=[address] [facility] Comment on above: Performed By: #### C BC #### [facility] [address] [place] [address] Dr. Dwight Waters EGFR-NON AF [place] >60 Normal >=[address] [facility] Comment on above: Performed By: #### C BC #### [facility] [address] [place] [address] Dr. Dwight Waters GGTon 06-06-2022 Gamma glutamyl transferase [Catalytic activity/Vol] 29 U/L Normal 15-[address] [facility] Comment on above: Performed By: #### C BC #### [facility] [address] [place] [address] Dr. Dwight Waters GLUCOSE BLOODon 06-06-2022 Glucose [Mass/Vol] 112 mg/dL Critically high 74-106 [facility] Comment on above: Performed By: #### C BC #### [facility] [address] [place] [address] Dr. Dwight Waters MAGNESIUMon 06-06-2022 Magnesium [Mass/Vol] 1.3 mg/dL Critically low 1.8-2.[address] [facility] Comment on above: Performed By: #### C MP #### [facility] [address] [place] [address] Dr. Dwight Waters NAon 06-06-2022 Sodium [Moles/Vol] 141 mmol/L Normal 136-[address] [facility] Comment on above: Performed By: #### C MP #### [facility] [address] [address] [address] Dwight Waters PHOSPHORUSon 06-06-2022 Phosphate [Mass/Vol] 3.1 mg/dL Normal 2.6-4.[address] [facility] Comment on above: Performed By: #### C MP #### [facility] [address] [place] [address] Dr. Dwight Waters POTASSIUMon 06-06-2022 Potassium [Moles/Vol] 4.3 mmol/L Normal 3.5-5.[address] [facility] Comment on above: Performed By: #### C BC #### [facility] [address] [place] [address] Dr. Dwight OLVERAOToamanda 06-06-2022 AST [Catalytic activity/Vol] 16 U/L Normal 15-[address] [facility] Comment on above: Performed By: #### C BC #### [facility] [address] [place] [address] Dr. Dwight OLVERAPTon 06-06-2022 ALT [Catalytic activity/Vol] 50 U/L Normal 16-[address] [facility] Comment on above: Performed By: #### C BC #### [facility] [address] [place] [address] Dr. Dwight Waters Bacteria identified Cx Nom ( Bld)on 05-21-2022 Bacteria identified Cx Nom (Unsp spec) NO GROWTH DAY 5 OF 5 [facility] Results may be compr omised due to volume of BACT\ALERT bottle exceeding 10mLs . The optimal blood volume is 8-10 mls per aerobic/anaerobic blood culture bottle. [facility] CALCIUMon 05-20-2022 Calcium [Mass/Vol] 9.1 [...] Hospital RBC (Bld) [#/Vol] 4.25 10*6/uL Low [facility] WBC (Bld) [#/Vol] 6.31 10*3/uL 3.73 - 10. 10 K/uL [facility] CHEM 7 (LYTES,BUN,CREA,GLUC) on 05-20-2022 [...] rate/Area] 81 >=60 mL/min/1.73m 2 [facility] Comment on above: Reported eGFR is bas ed on the CKD-EPI 2020 equation using creatinine, age, and sex. Glucose [Mass/Vol] 92 mg/dL 70 - 99 mg/dL [facility] Interpretation and review of laboratory results Abnormal [facility] Osmolality Calc [Osmolality] 302 [facility] Potassium [Moles/Vol] 4.4 mmol/L 3.5 - 5.0 mmol/L [facility] Sodium [Moles/Vol] 144 mmol/L 135 - 145 mmol/L [facility] Urea nitrogen [Mass/Vol] 18 mg/dL 7 - 25 mg/dL [facility] Urea nitrogen/Creatinine [Mass ratio] 16 mg/mg [facility] MAGNESIUMon 05-20-2022 Interpretation and review of laboratory results Abnormal [facility] Magnesium [Mass/Vol] 1.5 mg/dL Low 1.6 - 2 .6 mg/dL [facility] No Panel Informationon 05-20 Interpretation and review of laboratory results Normal [facility] [facility] PHOSPHATE, INORGANICon 05-20 Phosphate [Mass/Vol] 3.3 mg/dL 2.2 - 4 .6 mg/dL [facility] RF Unspecified body region V iews [...] projections of kidneys, ureters, and bladder. FINDINGS: Sap Technical Architect images: Sap Technical Architect radiographs of the abdomen reveal a nonobstructive [...] Contrast refluxes up the ureter to the zuni right kidney that is grossly normal appearing. [...] projections of kidneys, ureters, and bladder. FINDINGS: Sap Technical Architect images: Sap Technical Architect radiographs of the abdomen reveal a nonobstructive [...] Contrast refluxes up the ureter to the zuni right kidney that is grossly normal appearing. [...] Study observation (narrative) [facility] RF Unspecified body region V iews during surgeryOrdered By: Lizz Campos on 05-20-2022 [facility] Work Phone: CALCIUMon 05-19-2022 Calcium [Mass/Vol] 9.2 mg/dL 8.6 - 10. 5 mg/dL [facility] Calcium [Mass/Vol] 8.6 mg/dL 8.6 - 10. 5 mg/dL [facility] CBC,PLATELETSon 05-19-2022 Erythrocyte distribution width (RBC) [...] Hospital RBC (Bld) [#/Vol] 4.20 10*6/uL Low [facility] WBC (Bld) [#/Vol] 6.81 10*3/uL 3.73 - 10. 10 K/uL [facility] CHEM 7 (LYTES,BUN,CREA,GLUC) on 05-19-2022 [...] rate/Area] 61 >=60 mL/min/1.73m 2 [facility] Comment on above: Reported eGFR is bas ed on the CKD-EPI 2020 equation using creatinine, age, and sex. Glucose [Mass/Vol] 121 mg/dL High 70 - 99 mg/dL [facility] Interpretation and review of laboratory results Abnormal [facility] Osmolality Calc [Osmolality] 303 [facility] Potassium [Moles/Vol] 3.8 [...] 58 Low >=60 mL/min/1.73m 2 [facility] Comment on above: Reported eGFR is bas ed on the CKD-EPI 2020 equation using creatinine, age, and sex. Glucose [Mass/Vol] 103 mg/dL High 70 - 99 mg/dL [facility] Interpretation and review of laboratory results Abnormal [facility] Osmolality Calc [Osmolality] 298 [facility] Potassium [Moles/Vol] 3.9 [...] Interpretation and review of laboratory results Normal [facility] Interpretation and review of laboratory results Normal [facility] PHOSPHATE, INORGANICon 05-19 Phosphate [Mass/Vol] [...] Hospital RBC (Bld) [#/Vol] 4.12 10*6/uL Low [facility] WBC (Bld) [#/Vol] 10.19 10*3/uL High 3.73 - 10 .10 K/uL [facility] CHEM 7 (LYTES,BUN,CREA,GLUC) on 05-18-2022 [...] 42 Low >=60 mL/min/1.73m 2 [facility] Comment on above: [...] [Moles/Vol] 13 mmol/L 7 - 17 mmol/L [facility] Chloride [Moles/Vol] 104 mmol/L 98 - 10 8 mmol/L [facility] CO2 [Moles/Vol] 26 mmol/L 21 - 31 mmol/L [facility] Creatinine [Mass/Vol] 2.96 mg/dL High 0.70 - 1.30 mg/dL [facility] GFR/1.73 sq M.predicted CKD-EPI (S/P/Bld) [Vol rate/Area] 25 Low >=60 mL/min/1.73m 2 [facility] Comment on above: [...] 1.7 mg/dL 1.6 - 2 .6 mg/dL [facility] No Panel Informationon 05-18 Interpretation and review of laboratory results Abnormal [facility] Interpretation and review of laboratory results Normal [facility] PHOSPHATE, INORGANICon 05-18 Phosphate [Mass/Vol] [...] PT Coag (PPP) [Time] 14.4 s High [facility] URINE CULTUREOrdered By: Sylvia Campos on 05-18-2022 Bacteria identified Cx Nom (Unsp spec) No Growth [facility] CBC,PLATELETSon 05-17-2022 Erythrocyte distribution width [...] [facility] RBC (Bld) [#/Vol] 4.61 10*6/uL [facility] WBC (Bld) [#/Vol] 16.61 10*3/uL High 3.73 - 10 .10 K/uL [facility] CHEM 7 (LYTES,BUN,CREA,GLUC) Ordered By: [...] 11 Low >=60 mL/min/1.73m 2 [facility] Comment on above: [...] Hospital Urea nitrogen/Creatinine [Mass ratio] 9 mg/mg [facility] CHEM 7 (LYTES,BUN,CREA,GLUC) Ordered By: [...] 7 Low >=60 mL/min/1.73m 2 [facility] Comment on above: [...] Hospital Urea nitrogen/Creatinine [Mass ratio] 7 mg/mg [facility] LAVENDER TOP TUBEon 05-17-20 [facility] MAGNESIUMon 05-17-2022 Interpretation and review of laboratory results Normal [facility] Magnesium [Mass/Vol] 1.8 mg/dL 1.6 - 2 .6 mg/dL [facility] Interpretation and review of laboratory results Normal [facility] Magnesium [Mass/Vol] 1.6 mg/dL 1.6 - 2 .6 mg/dL [facility] No Panel Informationon 05-17 [facility] PHOSPHATE, INORGANICon 05-17 Interpretation and review of laboratory results Abnormal [facility] Phosphate [Mass/Vol] 4.9 mg/dL High 2.2 - 4 .6 mg/dL [facility] PT,INR,PTTon 05-17-2022 aPTT Coag (PPP) [Time] 33.0 s [facility] INR Coag (Bld) [Relative time] 1.3 {INR} High [facility] Interpretation and review of laboratory results Abnormal [facility] PT Coag (PPP) [Time] 15.7 s High [facility] Portable XR Chest Viewson IMPRESSION: No [...] 05-17-2022 Appearance (U) Cloudy Abnormal Clear [facility] Comment on above: Results may be inacc urate due to color interference. Clinical correlation recommended. Bacteria LM Ql (Urine sed) ABSENT ABSENT [facility] Color (U) Red Abnormal Yellow [facility] Comment on above: [...] (U) Negative Negative [facility] Comment [...] recommended. RBC (U) [#/Vol] Large Abnormal Negative [facility] Comment on above: Results may be [...] [#/Area] /[HPF] Abnormal 0 - 5 /HPF [facility] URINE CULTUREOrdered By: Tyler Tiwari on 05-17-2022 Bacteria identified Cx Nom (Unsp spec) No Growth [facility] CBC,PLATELETSon 05-16-2022 Erythrocyte distribution width [...] [facility] RBC (Bld) [#/Vol] 5.19 10*6/uL [facility] WBC (Bld) [#/Vol] 12.55 10*3/uL High 3.73 - 10 .10 K/uL [facility] CHEM 7 (LYTES,BUN,CREA,GLUC) Ordered By: Alma Pena on 05-16-2022 Anion gap [Moles/Vol] 14 mmol/L 7 - 17 mmol/L [facility] Chloride [Moles/Vol] 103 mmol/L 98 - 10 8 mmol/L [facility] CO2 [Moles/Vol] 22 mmol/L 21 - 31 mmol/L [facility] Creatinine [Mass/Vol] 6.09 mg/dL High 0.70 - 1.30 mg/dL [facility] GFR/1.73 sq M.predicted CKD-EPI (S/P/Bld) [Vol rate/Area] 10 Low >=60 mL/min/1.73m 2 [facility] Comment on above: [...] Hospital Urea nitrogen/Creatinine [Mass ratio] 8 mg/mg [facility] CHEM 7 (LYTES,BUN,CREA,GLUC) on 05-16-2022 [...] 13 Low >=60 mL/min/1.73m 2 [facility] Comment on above: [...] [facility] Comment on above: [facility] Negative results do not [...] [facility] No Panel Informationon 05-16 [facility] OSMOLALITY, URINEon 05-16-20 Interpretation and review of laboratory results Normal [facility] Osmolality (U) [Osmolality] 320 mosm/kg [facility] The reference range has not been established for random urine specimens. The test result should be integrated into the clinical context for interpretation. [facility] PROCALCITONINon 05-16-2022 Interpretation and review [...] and trend procalcitonin in various clinical settings. [email or web address] Two [...] INR Coag (Bld) [Relative time] 1.1 {INR} [facility] Interpretation and review of laboratory results Normal [facility] PT Coag (PPP) [Time] 14.1 s [facility] SARS-CoV-2 (COVID-19) RNA NA A+probe Ql (Unsp spec)Ordered By: Edson Candelario on 05-16-2022 Interpretation and review of laboratory results Normal [facility] TACROLIMUS LEVEL, TROUGH (UT E DRUG LEVEL)Ordered By: Mariama Nick on 05-16-2022 Interpretation and review of laboratory results Normal [facility] Tacrolimus (Bld) [Mass/Vol] 4.1 ng/mL Bone Marrow Transplant: 4.0-12.0, Therapeutic: 5.0-15.0 [facility] Method performed is a chemiluminescent microparticle immunoasssay on the [employer] i2000. The range is based on experience at [facility] and users should be aware that target concentrations vary widely depending on concomitant therapy, time post-transplant, and desired degree of immunosuppression. [facility] URINE PROTEIN/CREA RATIO, RA Baljit 05-16-2022 Creatinine (24H U) [Mass/Vol] 59.82 mg/dL [facility] Protein Unsp time (U) [Mass/Vol] 111 mg/dL [facility] Protein/Creatinine (U) [Mass ratio] 1.856 mg/g [facility] US for transplanted kidney l imitedon [...] cell count method Nom (Bld) Electronic Differential [facility] Eosinophils (Bld) [#/Vol] 10*3/uL 0.00 - [...] [facility] RBC (Bld) [#/Vol] 5.17 10*6/uL [facility] Segmented neutrophils/100 WBC (Bld) 80.8 % [facility] WBC (Bld) [#/Vol] 15.81 10*3/uL High 3.73 - 10 .10 K/uL [facility] CBC AUTO DIFFon 05-15-2022 BASO # 0.0 103/ul Normal 0.0-0.[address] [facility] Comment on above: Performed By: #### C BC #### [facility] [address] [place] [address] Dr. Dwight Waters Basophils/100 WBC (Bld) 0.3 % Normal 0.2-2.[address] [facility] Comment on above: Performed By: #### C BC #### [facility] [address] [place] [address] Dr. Dwight Waters EO # 0.1 103/ul Normal 0.0-0.[address] [facility] Comment on above: Performed By: #### C BC #### [facility] [address] [place] [address] Dr. Dwight Waters Eosinophils/100 WBC (Bld) 0.8 % Critically low 0.9-7.[address] [facility] Comment on above: Performed By: #### C BC #### [facility] [address] [place] [address] Dr. Dwight Waters Erythrocyte distribution width (RBC) [Ratio] 12.7 % Normal 11.0-15.[address] [facility] Comment on above: Performed By: #### C BC #### [facility] [address] [place] [address] Dr. Dwight Waters Hematocrit (Bld) [Volume fraction] 43.5 % Normal 42.0-54.[address] [facility] Comment on above: Performed By: #### C BC #### [facility] [address] [place] [address] Dr. Dwight Waters Hemoglobin (Bld) [Mass/Vol] 14.4 g/dL Normal 14.0-18.[address] [facility] Comment on above: Performed By: #### C BC #### [facility] [address] [place] [address] Dr. Dwight Waters IG # 0.02 10e3/ul Normal 0.00-0.[address] [facility] Comment on above: Performed By: #### C BC #### [facility] [address] [place] [address] Dr. Dwight Waters IG % 0.2 % Normal 0.0-0.[address] [facility] Comment on above: Performed By: #### C BC #### [facility] [address] [place] [address] Dr. Dwight Waters LYMPH # 1.5 103/ul Normal 1.2-3.8 [facility] Comment on above: Performed By: #### C BC #### [facility] [address] [place] [address] Dr. Dwight Waters Lymphocytes/100 WBC (Bld) 12.5 % Critically low 20.5-60.[address] [facility] Comment on above: Performed By: #### C BC #### [facility] [address] [place] [address] Dr. Dwight Waters MANUAL DIFF REQ NO Normal [facility] Comment on above: Performed By: #### C BC #### [facility] [address] [place] [address] Dr. Dwight Waters MCH (RBC) [Entitic mass] 28.6 pg Normal 25.9-34.[address] [facility] Comment on above: Performed By: #### C BC #### [facility] [address] [place] [address] Dr. Dwight Waters MCHC (RBC) [Mass/Vol] 33.1 g/dL Normal 29.9-35.2 [facility] Comment on above: Performed By: #### C BC #### [facility] [address] [place] [address] Dr. Dwight Waters MCV (RBC) [Entitic vol] 86.3 fL Normal 80.0-94.0 [facility] Comment on above: Performed By: #### C BC #### [facility] [address] [place] [address] Dr. Dwight Waters MONO # 1.0 103/ul Critically high 0.3-0.[address] [facility] Comment on above: Performed By: #### C BC #### [facility] [address] [place] [address] Dr. Dwight Waters Monocytes/100 WBC (Bld) 8.2 % Normal 1.7-12.0 [facility] Comment on above: Performed By: #### C BC #### [facility] [address] [place] [address] Dr. Dwight Waters NEUT # 9.1 103/ul Critically high 1.4-6.5 [facility] Comment on above: Performed By: #### C BC #### [facility] [address] [place] [address] Dr. Dwight Waters Neutrophils/100 WBC (Bld) 78.0 % Critically high 43.0-75.0 [facility] Comment on above: Performed By: #### C BC #### [facility] [address] [place] [address] Dr. Dwight Waters Platelet mean volume (Bld) [Entitic vol] 9.8 fL Normal 9.5-13.5 [facility] Comment on above: Performed By: #### C BC #### [facility] [address] [place] [address] Dr. Dwight Waters PLT 251 103/ul Normal 150-450 [facility] Comment on above: Performed By: #### C BC #### [facility] [address] [place] [address] Dr. Dwight Waters RBC 5.04 106/ul Normal 4.70-6.10 [facility] Comment on above: Performed By: #### C BC #### [facility] [address] [place] [address] Dr. Dwight Waters WBC 11.6 103/ul Critically high 4.0-11.0 [facility] Comment on above: Performed By: #### C BC #### [facility] [address] [place] [address] Dr. Dwight Waters CHEM 6 (LYTES, BUN CREA)on 0 05-15-2022 Anion gap [Moles/Vol] 12 mmol/L 7 - 17 mmol/L [facility] Chloride [Moles/Vol] 105 mmol/L 98 - 10 8 mmol/L [facility] CO2 [Moles/Vol] 26 mmol/L 21 - 31 mmol/L [facility] Creatinine [Mass/Vol] 2.85 mg/dL High 0.70 - 1.30 mg/dL [facility] GFR/1.73 sq M.predicted CKD-EPI (S/P/Bld) [Vol rate/Area] 26 Low >=60 mL/min/1.73m 2 [facility] Comment on above: Reported eGFR is bas ed on the CKD-EPI 2020 equation using creatinine, age, and sex. Potassium [Moles/Vol] 4.6 mmol/L 3.5 - 5.0 mmol/L [facility] Sodium [Moles/Vol] 138 mmol/L 135 - 145 mmol/L [facility] Urea nitrogen [Mass/Vol] 32 mg/dL High 7 - 25 mg/dL [facility] Urea nitrogen/Creatinine [Mass ratio] 11 mg/mg [facility] CT ABD/PELVIS WO CONon 05-15 [...] transplanted kidney with moderate right-sided hydronephrosis. Atrophic zuni kidneys with moderate right-sided hydronephrosis. Multiple nonobstructive [...] transplanted kidney with moderate right-sided hydronephrosis. Atrophic zuni kidneys with moderate right-sided hydronephrosis. Multiple nonobstructive right renal calculi measuring up to 8 mm. FOLLOW-UP: Follow-up as clinically indicated. Electronically authenticated by: LYNDSAY JEAN Date: 2022-05-15 05:04 Normal [facility] Covid-19 PCR (CVDTBH)on 04-30 SARS-CoV-2 (COVID-19) RNA ESTELITA+probe Ql (Unsp spec) Not detected Normal NOT DETECTED [facility] Comment on above: Result Comment: [...] for this test is supported by the [place] of Health and Human Service's declaration that [...] used). Performed By: #### U RTPCR #### [facility] [address] [place] [address] Dr. Dwight Waters GLUCOSEon 05-15-2022 Glucose [Mass/Vol] 141 mg/dL High 70 - 99 mg/dL [facility] GOLD TOP TUBEon 05-15-2022 [facility] HEPATIC FUNCTION PANELon Albumin [Mass/Vol] 4.3 g/dL 3.5 - 5.0 g/dL [facility] ALP [Catalytic activity/Vol] 85 U/L 32 - 126 U/L [facility] ALT [Catalytic activity/Vol] 13 U/L 10 - 52 U/L [facility] AST [Catalytic activity/Vol] 15 U/L [...] Interpretation and review of laboratory results Abnormal [facility] PROF 14(COMP METB)on 022 Albumin [Mass/Vol] 3.8 g/dL Normal 3.4-5.[address] [facility] Comment on above: Performed By: #### U RTPCR #### [facility] [address] [place] [address] Dr. Dwight Waters Albumin/Globulin [Mass ratio] 1.1 {ratio} Normal [facility] Comment on above: Performed By: #### U RTPCR #### [facility] [address] [place] [address] Dr. Dwight Waters ALP [Catalytic activity/Vol] 92 U/L Normal 46-116 [facility] Comment on above: Performed By: #### U RTPCR #### [facility] [address] [place] [address] Dr. Dwight Waters ALT [Catalytic activity/Vol] 25 U/L Normal 16-63 [facility] Comment on above: Performed By: #### U RTPCR #### [facility] [address] [place] [address] Dr. Dwight Waters Anion gap [Moles/Vol] 14.6 mmol/L Normal [facility] Comment on above: Performed By: #### U RTPCR #### [facility] [address] [place] [address] Dr. Dwight Waters AST [Catalytic activity/Vol] 17 U/L Normal 15-[address] [facility] Comment on above: Performed By: #### U RTPCR #### [facility] [address] [address] [address] Dwight Waters Bilirubin [Mass/Vol] 0.6 mg/dL Normal 0.2-1.[address] [facility] Comment on above: Performed By: #### U RTPCR #### [facility] [address] [place] [address] Dr. Dwight Waters Calcium [Mass/Vol] 9.9 mg/dL Normal 8.5-10.[address] [facility] Comment on above: Performed By: #### U RTPCR #### [facility] [address] [place] [address] Dr. Dwight Waters Chloride [Moles/Vol] 106 mmol/L Normal 98-[address] [facility] Comment on above: Performed By: #### U RTPCR #### [facility] [address] [place] [address] Dr. Dwight Waters CO2 [Moles/Vol] 24.2 mmol/L Normal 21.0-32.[address] [facility] Comment on above: Performed By: #### U RTPCR #### [facility] [address] [place] [address] Dr. Dwight Waters Creatinine [Mass/Vol] 1.58 mg/dL Critically high 0.70-1.[address] [facility] Comment on above: Performed By: #### U RTPCR #### [facility] [address] [place] [address] Dr. Dwight Waters EGFR-AF [place] 56 mL/min/1.73m2 Critically low >=60 [facility] Comment on above: Performed By: #### U RTPCR #### [facility] [address] [place] [address] Dr. Dwight Waters EGFR-NON AF [place] 46 mL/min/1.73m2 Critically low >=60 [facility] Comment on above: Performed By: #### U RTPCR #### [facility] [address] [place] [address] Dr. Dwight Waters Globulin (S) [Mass/Vol] 3.5 g/dL Normal [facility] Comment on above: Performed By: #### U RTPCR #### [facility] [address] [address] [address] Dwight Waters Glucose [Mass/Vol] 162 mg/dL Critically high 74-106 [facility] Comment on above: Performed By: #### U RTPCR #### [facility] [address] [place] [address] Dr. Dwight Waters Potassium [Moles/Vol] 3.8 mmol/L Normal 3.5-5.[address] [facility] Comment on above: Performed By: #### U RTPCR #### [facility] [address] [place] [address] Dr. Dwight Waters Protein [Mass/Vol] 7.3 g/dL Normal 6.4-8.[address] [facility] Comment on above: Performed By: #### U RTPCR #### [facility] [address] [place] [address] Dr. Dwight Waters Sodium [Moles/Vol] 141 mmol/L Normal 136-[address] [facility] Comment on above: Performed By: #### U RTPCR #### [facility] [address] [place] [address] Dr. Dwight Waters Urea nitrogen [Mass/Vol] 22.0 mg/dL Critically high 7.0-18.[address] [facility] Comment on above: Performed By: #### U RTPCR #### [facility] [address] [place] [address] Dr. Dwight Waters Urea nitrogen/Creatinine [Mass ratio] 13.9 mg/mg Normal [facility] Comment on above: Performed By: #### U RTPCR #### [facility] [address] [place] [address] Dr. Dwight Waters Portable XR Chest Viewson [...] Hospital RBC (U) [#/Vol] Large Abnormal Negative [facility] Specific gravity (U) [Rel density] 1.010 [facility] Urobilinogen (U) [Mass/Vol] 0.2 E.U./dL 0.2 E.U/dL, 1.0 E.U/dL [facility] URINE MICROSCOPIC WITH REFLE X TO CULTUREOrdered By: Rey Bro on 05-15-2022 Bacteria LM Ql (Urine sed) ABSENT ABSENT [facility] Epithelial cells.squamous LM Ql (Urine sed) ABSENT 1/hpf = 1+, 2-5/hpf = 2+, 0/hpf = 0+, ABSENT [facility] Interpretation and review of laboratory results Abnormal [facility] RBC LM.HPF (Urine sed) [#/Area] /[HPF] Abnormal 0 - 2 /HPF [facility] WBC LM.HPF (Urine sed) [#/Area] 10-20 Abnormal 0 - 5 /HPF [facility] CT ABD/PELVIS WO CONon 05-12 CT ABD/PELVIS WO CON Begin Addendum #[address] Lund 3:25 PM EST 05/11/2022. Begin Addendum #2 IMPRESSION below should also contain the followin. 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 The zuni kidneys are progressively atrophic bilaterally compared to [...] of 06/14/2020 are no longer present. The zuni distal right ureter is decompressed beyond this [...] with surgical history for renal graft and zuni right urinary drainage, as a discrete ureteroneocystostomy is not identified, and the graft may be draining via a ureteroureterostomy. Urology consultation recommended. 3. The zuni kidneys are bilaterally atrophic, with right renal sinus calcifications consistent with nonobstructing right zuni renal calculi up to 6 mm. Normal [facility] CBC AUTO DIFFon 05-11-2022 BASO # 0.1 103/ul Normal 0.0-0.1 [facility] Comment on above: Performed By: #### U RTPCR #### [facility] [address] [place] [address] Dr. Dwight Waters Basophils/100 WBC (Bld) 0.8 % Normal 0.2-2.[address] [facility] Comment on above: Performed By: #### U RTPCR #### [facility] [address] [place] [address] Dr. Dwight Waters EO # 0.2 103/ul Normal 0.0-0.[address] [facility] Comment on above: Performed By: #### U RTPCR #### [facility] [address] [place] [address] Dr. Dwight Waters Eosinophils/100 WBC (Bld) 2.5 % Normal 0.9-7.[address] [facility] Comment on above: Performed By: #### U RTPCR #### [facility] [address] [place] [address] Dr. Dwight Waters Erythrocyte distribution width (RBC) [Ratio] 12.5 % Normal 11.0-15.[address] [facility] Comment on above: Performed By: #### U RTPCR #### [facility] [address] [place] [address] Dr. Dwight Waters Hematocrit (Bld) [Volume fraction] 48.3 % Normal 42.0-54.[address] [facility] Comment on above: Performed By: #### U RTPCR #### [facility] [address] [place] [address] Dr. Dwight Waters Hemoglobin (Bld) [Mass/Vol] 15.3 g/dL Normal 14.0-18.[address] [facility] Comment on above: Performed By: #### U RTPCR #### [facility] [address] [place] [address] Dr. Dwight Waters IG # 0.01 10e3/ul Normal 0.00-0.[address] [facility] Comment on above: Performed By: #### U RTPCR #### [facility] [address] [place] [address] Dr. Dwight Waters IG % 0.2 % Normal 0.0-0.[address] [facility] Comment on above: Performed By: #### U RTPCR #### [facility] [address] [place] [address] Dr. Dwight Waters LYMPH # 1.9 103/ul Normal 1.2-3.[address] [facility] Comment on above: Performed By: #### U RTPCR #### [facility] [address] [place] [address] Dr. Dwight Waters Lymphocytes/100 WBC (Bld) 29.8 % Normal 20.5-60.[address] [facility] Comment on above: Performed By: #### U RTPCR #### [facility] [address] [place] [address] Dr. Dwight Waters MANUAL DIFF REQ NO Normal [facility] Comment on above: Performed By: #### U RTPCR #### [facility] [address] [place] [address] Dr. Dwight Waters MCH (RBC) [Entitic mass] 28.2 pg Normal 25.9-34.[address] [facility] Comment on above: Performed By: #### U RTPCR #### [facility] [address] [place] [address] Dr. Dwight Waters MCHC (RBC) [Mass/Vol] 31.7 g/dL Normal 29.9-35.[address] [facility] Comment on above: Performed By: #### U RTPCR #### [facility] [address] [place] [address] Dr. Dwight Waters MCV (RBC) [Entitic vol] 89.1 fL Normal 80.0-94.[address] [facility] Comment on above: Performed By: #### U RTPCR #### [facility] [address] [place] [address] Dr. Dwight Waters MONO # 0.6 103/ul Normal 0.3-0.[address] [facility] Comment on above: Performed By: #### U RTPCR #### [facility] [address] [place] [address] Dr. Dwight Waetrs Monocytes/100 WBC (Bld) 9.0 % Normal 1.7-12.[address] [facility] Comment on above: Performed By: #### U RTPCR #### [facility] [address] [place] [address] Dr. Dwight Waters NEUT # 3.6 103/ul Normal 1.4-6.[address] [facility] Comment on above: Performed By: #### U RTPCR #### [facility] [address] [place] [address] Dr. Dwight Waters Neutrophils/100 WBC (Bld) 57.7 % Normal 43.0-75.[address] [facility] Comment on above: Performed By: #### U RTPCR #### [facility] [address] [place] [address] Dr. Dwight Waters Platelet mean volume (Bld) [Entitic vol] 9.9 fL Normal 9.5-13.[address] [facility] Comment on above: Performed By: #### U RTPCR #### [facility] [address] [place] [address] Dr. Dwight Waters PLT 249 103/ul Normal 150-450 [facility] Comment on above: Performed By: #### U RTPCR #### [facility] [address] [place] [address] Dr. Dwight Waters RBC 5.42 106/ul Normal 4.70-6.10 [facility] Comment on above: Performed By: #### U RTPCR #### [facility] [address] [place] [address] Dr. Dwight Waters WBC 6.3 103/ul Normal 4.0-11.[address] [facility] Comment on above: Performed By: #### U RTPCR #### [facility] [address] [place] [address] Dr. Dwight Waters ER URINE PROFILEon 2 Bilirubin Ql (U) Unable to perform te sting due to color interference. Abnormal NEGATIVE [facility] Comment on above: Performed By: #### U RTPCR #### [facility] [address] [place] [address] Dr. Dwight Waters Clarity (U) TURBID Abnormal CLEAR [facility] Comment on above: Performed By: #### U RTPCR #### [facility] [address] [place] [address] Dr. Dwight Waters Color (U) RED Abnormal YELLOW [facility] Comment on above: Performed By: #### U RTPCR #### [facility] [address] [place] [address] Dr. Dwight SHARMA A micrscopic examina tion will be performed if indicated. Normal [facility] Comment on above: Performed By: #### U RTPCR #### [facility] [address] [place] [address] Dr. Dwight Waters Glucose Ql (U) Unable to perform te sting due to color interference. Abnormal NEGATIVE [facility] Comment on above: Performed By: #### U RTPCR #### [facility] [address] [place] [address] Dr. Dwight Waters Hemoglobin Ql (U) Unable to perform te sting due to color interference. Abnormal NEGATIVE [facility] Comment on above: Performed By: #### U RTPCR #### [facility] [address] [place] [address] Dr. Dwight Waters Ketones Ql (U) Unable to perform te sting due to color interference. Abnormal NEGATIVE [facility] Comment on above: Performed By: #### U RTPCR #### [facility] [address] [place] [address] Dr. Dwight Waters LEUKOCYTES Unable to perform te sting due to color interference. Abnormal NEGATIVE [facility] Comment on above: Performed By: #### U RTPCR #### [facility] [address] [place] [address] Dr. Dwight Waters Nitrite Ql (U) Unable to perform te sting due to color interference. Abnormal NEGATIVE [facility] Comment on above: Performed By: #### U RTPCR #### [facility] [address] [place] [address] Dr. Dwight Waters pH (U) 6.5 [pH] Normal 5-9 [facility] Comment on above: Performed By: #### U RTPCR #### [facility] [address] [place] [address] Dr. Dwight Waters SPEC GRAVITY 1.020 Normal 1.005-<=1.[address] [facility] Comment on above: Performed By: #### U RTPCR #### [facility] [address] [place] [address] Dr. Dwight Waters UA PROTEIN Unable to perform te sting due to color interference. Normal NEGATIVE/ TRACE [facility] Comment on above: Performed By: #### U RTPCR #### [facility] [address] [place] [address] Dr. Dwight Waters UR MICRO IND INDICATED Normal [facility] Comment on above: Performed By: #### U RTPCR #### [facility] [address] [place] [address] Dr. Dwight Waters UROBILINOGEN Unable to perform te sting due to color interference. Normal 0.2 - 1.0 [facility] Comment on above: Performed By: #### U RTPCR #### [facility] [address] [place] [address] Dr. Dwight Waters PROF 14(COMP METB)on 022 Albumin [Mass/Vol] 3.8 g/dL Normal 3.4-5.0 [facility] Comment on above: Performed By: #### C MP #### [facility] [address] [place] [address] Dr. Dwight Waters Albumin/Globulin [Mass ratio] 1.1 {ratio} Normal [facility] Comment on above: Performed By: #### C MP #### [facility] [address] [place] [address] Dr. Dwight Waters ALP [Catalytic activity/Vol] 106 U/L Normal 46-116 [facility] Comment on above: Performed By: #### C MP #### [facility] [address] [place] [address] Dr. Dwight Waters ALT [Catalytic activity/Vol] 30 U/L Normal 16-63 [facility] Comment on above: Performed By: #### C MP #### [facility] [address] [place] [address] Dr. Dwight Waters Anion gap [Moles/Vol] 11.7 mmol/L Normal [facility] Comment on above: Performed By: #### C MP #### [facility] [address] [place] [address] Dr. Dwight Waters AST [Catalytic activity/Vol] 16 U/L Normal 15-[address] [facility] Comment on above: Performed By: #### C MP #### [facility] [address] [place] [address] Dr. Dwight Waters Bilirubin [Mass/Vol] 0.6 mg/dL Normal 0.2-1.[address] [facility] Comment on above: Performed By: #### C MP #### [facility] [address] [place] [address] Dr. Dwight Waters Calcium [Mass/Vol] 9.1 mg/dL Normal 8.5-10.[address] [facility] Comment on above: Performed By: #### C MP #### [facility] [address] [place] [address] Dr. Dwight Waters CO2 [Moles/Vol] 27.4 mmol/L Normal 21.0-32.[address] [facility] Comment on above: Performed By: #### C MP #### [facility] [address] [place] [address] Dr. Dwight Waters Creatinine [Mass/Vol] 1.18 mg/dL Normal 0.70-1.[address] [facility] Comment on above: Performed By: #### C MP #### [facility] [address] [place] [address] Dr. Dwight Waters EGFR-AF [place] ISLANDER >60 Normal >=[address] [facility] Comment on above: Performed By: #### C MP #### [facility] [address] [place] [address] Dr. Dwight Waters EGFR-NON AF [place] ISLANDER >60 Normal >=[address] [facility] Comment on above: Performed By: #### C MP #### [facility] [address] [place] [address] Dr. Dwight Waters Globulin (S) [Mass/Vol] 3.6 g/dL Normal [facility] Comment on above: Performed By: #### C MP #### [facility] [address] [place] [address] Dr. Dwight Waters Glucose [Mass/Vol] 192 mg/dL Critically high 74-106 [facility] Comment on above: Performed By: #### C MP #### [facility] [address] [address] [address] Dwight Waters Potassium [Moles/Vol] 4.1 mmol/L Normal 3.5-5.[address] [facility] Comment on above: Performed By: #### C MP #### [facility] [address] [address] [address] Dwight Waters Protein [Mass/Vol] 7.4 g/dL Normal 6.4-8.2 [facility] Comment on above: Performed By: #### C MP #### [facility] [address] [address] [address] Dwight Waters Sodium [Moles/Vol] 142 mmol/L Normal 136-[address] [facility] Comment on above: Performed By: #### C MP #### [facility] [address] [place] [address] Dr. Dwight Waters Urea nitrogen [Mass/Vol] 17.0 mg/dL Normal 7.0-18.[address] [facility] Comment on above: Performed By: #### C MP #### [facility] [address] [place] [address] Dr. Dwight Waters Urea nitrogen/Creatinine [Mass ratio] 14.4 mg/mg Normal [facility] Comment on above: Performed By: #### C MP #### [facility] [address] [place] [address] Dr. Dwight Waters URINE MICROSCOPIC ONLYon BACTERIA NONE SEEN Normal NONE SEEN [facility] Comment on above: Performed By: #### U RTPCR #### [facility] [address] [place] [address] Dr. Dwight Waters Bacteria identified Cx Nom (U) NOT INDICATED Normal [facility] Comment on above: Performed By: #### U RTPCR #### [facility] [address] [place] [address] Dr. Dwight Waters CAST NONE SEEN Normal NONE SEEN [facility] Comment on above: Performed By: #### U RTPCR #### [facility] [address] [place] [address] Dr. Dwight Waters Crystals LM Nom (Urine sed) NONE SEEN Normal NONE SEEN [facility] Comment on above: Performed By: #### U RTPCR #### [facility] [address] [place] [address] Dr. Dwight Waters Epithelial cells LM Ql (Urine sed) RARE Normal NONE SEEN /RARE [facility] Comment on above: Performed By: #### U RTPCR #### [facility] [address] [place] [address] Dr. Dwight Waters MUCOUS NONE SEEN Normal NONE SEEN [facility] Comment on above: Performed By: #### U RTPCR #### [facility] [address] [place] [address] Dr. Dwight Waters RBC (U) [#/Vol] /uL Abnormal 0-[address] [facility] Comment on above: Performed By: #### U RTPCR #### [facility] [address] [place] [address] Dr. Dwight Waters WBC NONE SEEN Normal NONE SEEN [facility] Comment on above: Performed By: #### U RTPCR #### [facility] [address] [place] [address] Dr. Dwight Waters K (Potassium)on 01-06-2020 Potassium [Moles/Vol] 4.4 mmol/L Normal 3.7-5.3 [facility] Comment on above: Performed By: #### K #### [facility] [address] [place], [place] [id number] Sole Cutter: Kehinde Woodward MD Potassiumon 01-06-2020 Potassium [Moles/Vol] 4.4 mmol/L 3.7 - 5.3 mmol/L [facility] Work Phone: Hemoglobin and Hematocrit, B loodon 10-24-2019 Hematocrit (Bld) [Volume fraction] 23.6 % Low 40.7 - 50.3 % [place], [place] Hemoglobin (Bld) [Mass/Vol] 7.3 g/dL Low 13 - 17 g/dL [place] Interpretation and review of laboratory results Abnormal [place] Hgb/Hcton 10-24-2019 Hematocrit (Bld) [Volume fraction] 23.6 % Low 40.7-50.3 [facility] Comment on above: Performed By: #### H H #### [facility] [address] [place], [place] [id number] Sole Cutter: Kehinde Woodward MD Hemoglobin (Bld) [Mass/Vol] 7.3 g/dL Low 13.0-17.0 [facility] Comment on above: Performed By: #### H H #### [facility] [address] [place] [address] Sole Cutter: Kehinde Woodward MD Hemoglobinon 08-27-2019 Hemoglobin (Bld) [Mass/Vol] 7.5 g/dL Low 13.0-17.0 [facility] Comment on above: Performed By: #### H GB #### [facility] [address] [place] [address] Sole Cutter: Kehinde Woodward MD Hemoglobin (Bld) [Mass/Vol] 7.5 g/dL Low 13 - 17 g/dL [place] Interpretation and review of laboratory results Abnormal [place] Hemoglobinon 08-08-2019 Hemoglobin (Bld) [Mass/Vol] 8.3 g/dL Low 13.0-17.0 [facility] Comment on above: Performed By: #### H GB #### [facility] [address] [place] [address] Sole Cutter: Kehinde Woodward MD Hemoglobin (Bld) [Mass/Vol] 8.3 g/dL Low 13 - 17 g/dL [place] Interpretation and review of laboratory results Abnormal [place] Hemoglobinon 08-04-2019 Hemoglobin (Bld) [Mass/Vol] 8.0 g/dL Low 13.0-17.0 [facility] Comment on above: Performed By: #### H GB #### [facility] [address] [place], [place] [id number] Sole Cutter: Kehinde Woodward MD Hemoglobin A1Con 08-03-2019 HbA1c (Bld) [Mass fraction] % Low 4.8-5.9 [facility] Comment on above: Result Comment: The ADA and AACC recommend providing the estimated average glucose result to permit better patient understanding of their HBA1c result. Performed By: #### G LYHGB #### [facility] [address] [place] [facility] Sole Cutter: Kehinde Woodward MD Glucose [Mass/Vol] mg/dL mg/dL [place] Comment on above: The ADA and AACC rec ommend providing the estimated average glucose result to permit better patient understanding of their HBA1c result. HbA1c (Bld) [Mass fraction] % Low 4.8 - 5.9 % [place] Interpretation and review of laboratory results Abnormal [place] Hemoglobinon 08-01-2019 Hemoglobin (Bld) [Mass/Vol] 8.1 g/dL Low 13.0-17.0 [facility] Comment on above: Performed By: #### H GB #### [facility] [address] [place] [address] Sole Cutter: Kehinde Woodward MD Hemoglobin (Bld) [Mass/Vol] 8.1 g/dL Low 13 - 17 g/dL [place] Interpretation and review of laboratory results Abnormal [place] Hgb/Hcton 06-10-2019 Hematocrit (Bld) [Volume fraction] 24.3 % Low 40.7-50.3 [facility] Comment on above: Performed By: #### H H #### [facility] [address] [place] [facility] Sole Cutter: Kehinde Woodward MD Hemoglobin (Bld) [Mass/Vol] 7.4 g/dL Low 13.0-17.0 [facility] Comment on above: Performed By: #### H H #### [facility] [address] [place] [address] Sole Cutter: Kehinde Woodward MD Hemoglobinon 06-01-2019 Hemoglobin (Bld) [Mass/Vol] 7.2 g/dL Low 13.0-17.0 [facility] Comment on above: Performed By: #### H GB #### [facility] [address] [place] [address] Sole Cutter: Kehinde Woodward MD K (Potassium)on 01-14-2019 Potassium [Moles/Vol] 3.6 mmol/L Low 3.7-5.3 [facility] Comment on above: Performed By: #### K #### [facility] [address] [place] [address] Sole Cutter: Kehinde Woodward MD Otheron 10-19-2018 IMPRESSION: 1. [...] characteristics determined by Toxicology Laboratory at [facility]. It has not been cleared [...] Amitriptyline(50), Amphetamine(250), Atenolol(500), Barbiturates(1000), Benzoylecgonine(50), Buprenorphine(50), Bupropion(25), Caffeine(93357), Chlordiazepoxide(50), Chlorpheniramine(100), Chlorpromazine(50), Citalopram(100), Clonazepam(200), Cocaine(25), Codeine(200), [...] LAB, [facility] TOXICOLOGY SCREEN URINE - UD [facility] 10-12-2018 Drugs identified Screen Nom (U) For Medical Purposes Only, Non-forensic, screen results are presumptive. No confirmatory testing will follow. Invalid Interpretation Code LAB, [facility] Comment on above: This Liquid Chromato graphy Mass Spectrometry (LC/MS/MS) test was developed and its performance characteristics determined by Toxicology Laboratory at [facility]. It has not been cleared [...] Amitriptyline(50), Amphetamine(250), Atenolol(500), Barbiturates(200), Benzoylecgonine(50), Buprenorphine(500), Bupropion(25), Caffeine(11658), Cannabinoids(THC)(50), Chlordiazepoxide(50), Chlorpheniramine(100), Chlorpromazine(50), Citalopram(100), Clonazepam(200), Cocaine(25), [...] 02-26-2024 09:07-0400 Diastolic blood pressure 56 mm[Hg] Canide Almaguer MD Work Phone: [facility] 02-26-2024 09:07-0400 Heart rate 65 /min Candie Almaguer MD Work Phone: [facility] 02-26-2024 09:07-0400 Systolic blood pressure 113 mm[Hg] Candie Almaguer MD Work Phone: [facility] 02-26-2024 09:06-0400 Body height 170.2 cm Candie Almaguer MD Work Phone: [facility] 02-26-2024 09:06-0400 Body mass index (BMI) [Ratio] 28.9 kg/m2 Candie Almaguer MD Work Phone: [facility] 02-26-2024 09:06-0400 Body weight 83.69 kg Candie Almaguer MD Work Phone: [facility] 02-26-2024 09:06-0400 Respiratory rate 20 /min Candie Almaguer MD Work Phone: [facility] 02-26-2024 09:06-0400 SaO2% (BldA) [Mass fraction] 97 % Candie Almaguer MD Work Phone: [facility] 01-23-2024 15:04-0500 Body temperature 97.9 [degF] Kevin Sage MD Work Phone: [facility] 01-23-2024 15:04-0500 Diastolic blood pressure 67 mm[Hg] Kevin Sage MD Work Phone: [facility] 01-23-2024 15:04-0500 Heart rate 51 /min Kevin Sage MD Work Phone: [facility] 01-23-2024 15:04-0500 Respiratory rate 16 /min Kevin Sage MD Work Phone: [facility] 01-23-2024 15:04-0500 SaO2% (BldA) [Mass fraction] 94 % Kevin Sage MD Work Phone: [facility] 01-23-2024 15:04-0500 Systolic blood pressure 151 mm[Hg] Kevin Sage MD Work Phone: [facility] 01-23-2024 10:46-0500 Body mass index (BMI) [Ratio] 30.94 kg/m2 Kevin Sage MD Work Phone: [facility] 01-23-2024 10:46-0500 Body weight 89.6 kg Kevin Sage MD Work Phone: [facility] 01-18-2024 11:21-0500 Body height 170.2 cm Kevin Sage MD Work Phone: [facility] 01-06-2024 09:04-0500 Body height 170.2 cm Zuly Bruno NP Work Phone: [facility] 01-06-2024 09:04-0500 Body mass index (BMI) [Ratio] 32.42 kg/m2 Zulytray Tannerholz ELECTRICAL INSPECTOR Work Phone: [facility] 01-06-2024 09:04-0500 Body temperature 97.81 [degF] Zuly Brianholz ELECTRICAL INSPECTOR Work Phone: [facility] 01-06-2024 09:04-0500 Body weight 93.89 kg Zuly Lexiehholz ELECTRICAL INSPECTOR Work Phone: [facility] 01-06-2024 09:04-0500 Diastolic blood pressure 70 mm[Hg] Zuly Lexiehholz ELECTRICAL INSPECTOR Work Phone: [facility] 01-06-2024 09:04-0500 Heart rate 95 /min Zuly Lexiehholz ELECTRICAL INSPECTOR Work Phone: [facility] 01-06-2024 09:04-0500 Respiratory rate 17 /min Zuly Lexiehholz ELECTRICAL INSPECTOR Work Phone: [facility] 01-06-2024 09:04-0500 SaO2% (BldA) [Mass fraction] 99 % Zuly Brianholz ELECTRICAL INSPECTOR Work Phone: [facility] 01-06-2024 09:04-0500 Systolic blood pressure 138 mm[Hg] Zuly Aichholz ELECTRICAL INSPECTOR Work Phone: [facility] 09-11-2023 10:31-0400 Body temperature 97.81 [...] Systolic blood pressure 106 mm[Hg] Steve Farrarmatthew MORENOBS Work Phone: [facility] 06-12-2023 14:50-0400 Body mass index (BMI) [Ratio] 33.8 kg/m2 Rebeca Gutierrez OUTREACH ASSOCIATE[employer] Work Phone: [facility] 06-12-2023 14:50-0400 Body temperature 97.3 [degF] Rebeca Gutierrez OUTREACH ASSOCIATE-[employer]NA[employer] Work Phone: [facility] 06-12-2023 14:50-0400 Body weight 97.89 kg Rebeca Gutierrez OUTREACH ASSOCIATE-[employer] Work Phone: [facility] 06-12-2023 14:50-0400 Diastolic blood pressure 77 mm[Hg] Rebeca Gutierrez OUTREACH ASSOCIATE[employer] Work Phone: [facility] 06-12-2023 14:50-0400 Heart rate 76 /min Rebeca Gutierrez OUTREACH ASSOCIATE-MAIN[employer]NA[employer] Work Phone: [facility] 06-12-2023 14:50-0400 Systolic blood pressure 146 mm[Hg] Rebeca Gutierrez OUTREACH ASSOCIATE[employer]NA[employer] Work Phone: [facility] 01-16-2023 08:57-0500 Body height 170.2 cm [facility] Work Phone: [facility] 01-16-2023 08:57-0500 Body mass index (BMI) [Ratio] 33.66 kg/m2 [facility] Work Phone: [facility] 01-16-2023 08:57-0500 Body temperature 97.3 [degF] [facility] Work Phone: [facility] 01-16-2023 08:57-0500 Body weight 97.48 kg [facility] Work Phone: [facility] 01-16-2023 08:57-0500 Diastolic blood pressure 75 mm[Hg] [facility] Work Phone: [facility] 01-16-2023 08:57-0500 Heart rate 76 /min [facility] Work Phone: [facility] 01-16-2023 08:57-0500 Systolic blood pressure 142 mm[Hg] [facility] 06-27-2022 13:32-0400 Body mass index (BMI) [...] mass index (BMI) [Ratio] 34.59 kg/m2 Steve Munoz MBBS Work Phone: [facility] 06-12-2022 14:23-0400 Body temperature 97 [degF] Steve Munoz MBBS Work Phone: [facility] 06-12-2022 14:23-0400 Body weight 100.2 kg Steve Munoz MBBS Work Phone: [facility] 06-12-2022 14:23-0400 Diastolic blood pressure 66 mm[Hg] Steve Munoz MBBS Work Phone: [facility] 06-12-2022 14:23-0400 Heart rate 63 /min Steve Yeison LEIGH Work Phone: [facility] 06-12-2022 14:23-0400 Systolic blood pressure 133 mm[Hg] Steve Yeison LEIGH Work Phone: [facility] 05-20-2022 15:21-0400 Body temperature 97.9 [degF] Gian Villatoro MD Work Phone: [facility] 05-20-2022 15:21-0400 Diastolic blood pressure 64 mm[Hg] Gian Villatoro MD Work Phone: 5(376)309-122032 [address] 05-20-2022 15:21-0400 Heart rate 55 /min Gian Villatoro MD Work Phone: 1(019)682-428932 [address] 05-20-2022 15:21-0400 Respiratory rate 15 /min Gian Villatoro MD Work Phone: 3(441)509-443632 [address] 05-20-2022 15:21-0400 SaO2% (BldA) [Mass fraction] 95 % Gian Villatoro MD Work Phone: [facility] 05-20-2022 15:21-0400 Systolic blood pressure 145 mm[Hg] Gian Villatoro MD Work Phone: 6(727)727-873632 [address] 05-19-2022 12:15-0400 Body mass index (BMI) [Ratio] 35.87 kg/m2 Gian Villatoro MD Work Phone: 5(682)[phone] [address] 05-19-2022 12:15-0400 Body weight 103.92 kg Gian Villatoro MD Work Phone: 1(425)[phone] [place] [address] Comment on above: standing scale 05-16-2022 16:19-0400 Body height 170.2 cm Gian Villatoro MD Work Phone: 3(234)[phone] [place] [address] 10-19-2018 08:44-0500 BMI (Body Mass Index) 26.58 kg/m2 [facility] Work Phone: 10-19-2018 08:44-0500 BP Diastolic 76 mm[Hg] [facility] Work Phone: 10-19-2018 08:44-0500 BP Systolic 144 mm[Hg] [facility] Work Phone: 10-19-2018 08:44-0500 Height 172.[address] [facility] Work Phone: 10-19-2018 08:44-0500 Pulse (Heart Rate) 92 /min [facility] Work Phone: 10-19-2018 08:44-0500 Pulse Oximetry 99 % [facility] Work Phone: 10-19-2018 08:44-0500 Respiratory Rate 16 /min [facility] Work Phone: 10-19-2018 08:44-0500 Weight 79.[address] [facility] Work Phone: 10-12-2018 09:50-0500 BMI (Body Mass Index) 27.24 kg/m2 [facility] Work Phone: 10-12-2018 09:50-0500 Body Temperature 98.6 [degF] [facility] Work Phone: 10-12-2018 09:50-0500 BP Diastolic 80 mm[Hg] [facility] Work Phone: 10-12-2018 09:50-0500 BP Systolic 157 mm[Hg] [facility] Work Phone: 10-12-2018 09:50-0500 Height 169.5 cm [facility] Work Phone: 10-12-2018 09:50-0500 Pulse (Heart Rate) 94 /min [facility] Work Phone: 10-12-2018 09:50-0500 Weight 78.29 kg [facility] Work Phone: Encounters Encounter Date Encounter Type Care Provider Facility Start: 05-13-2024 End: 05-13-2024 ambulatory [facility] Start: 04-18-2024 End: 04-18-2024 ambulatory ZULY BRUNO Not Available Start: 03-24-2024 End: 03-24-2024 Patient encounter procedure Angel Carpio [facility],PharmD Pharmacy Outpatient RX [facility] Start: 03-24-2024 End: 03-24-2024 ambulatory Angel Carpio [facility],PharmD Pharmacy Outpatient RX [facility] Start: 03-22-2024 End: [...] Start: 03-02-2024 End: 03-02-2024 ambulatory Meka Munoz [facility] Pharm[facility] Outpatient [facility] [place] Start: 03-02-2024 End: 03-02-2024 Patient encounter procedure Meka Munoz [facility] Pharm[facility] Outpatient [facility] [place] Start: 03-01-2024 ambulatory ZULY BRUNO Facility: [facility] Start: 03-01-2024 End: 03-01-2024 ambulatory JOHNNA HOLLIDAY Not Available Start: 02-26-2024 [facility] Start: 02-26-2024 End: 02-26-2024 Office outpatient new 30 minutes Candie Almaguer MD Work Phone: [facility] Comment on above: Heart failure, diast olic, acute (Primary Dx) Start: 02-26-2024 [facility] Start: 02-25-2024 End: 02-25-2024 ambulatory FIDELINA SANCHEZ Not Available Start: 02-23-2024 End: 02-23-2024 ambulatory PALMA PALACIOS Not Available Start: 02-11-2024 End: 02-11-2024 [facility] Available Start: 01-16-2024 Encounter for other preprocedural examination KELVIN PACHECO [facility] Start: 01-16-2024 End: 01-23-2024 Evaluation and management of inpatient Kevin Sage MD Work Phone: [id number] Comment on above: Pleural effusion on right Start: 01-16-2024 End: 01-23-2024 Patient encounter status Kevin Sage MD Work Phone: [facility] Work Phone: Start: 01-12-2024 End: 01-12-2024 ambulatory Angel Fete RPh,PharmD Pharmacy Outpatient RX [place] Start: 01-12-2024 End: 01-12-2024 Patient encounter procedure Angel Fete RPh,PharmD Pharmacy Outpatient RX [place] Start: 01-08-2024 Clinisync Result Encounter Generic External Data Provider [facility] External Department Unsolicited Start: 01-08-2024 Clinisync Result Encounter Generic External Data Provider [facility] External Department Unsolicited Start: 01-06-2024 End: 01-06-2024 ambulatory ZULY TANNERNINO Not Available Start: 01-06-2024 End: 01-06-2024 Office outpatient visit 25 minutes Zuly Kiana [employer]LECTRICAL INSPECTOR Work Phone: [facility] Comment on above: Bilateral lower extr emity edema (Primary Dx); 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); Atherosclerosis 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); Obesity (BMI 30-39.9); DARLENE (obstructive sleep apnea); Tremor; Immunocompromised ([facility]); Primary hypertension ([facility]); Shortness of breath Start: 01-01-2024 Clinisync Result Encounter Generic External Data Provider [facility] External Department Unsolicited Start: 01-01-2024 Clinisync Result Encounter Generic External Data Provider [facility] External Department Unsolicited Start: 11-03-2023 End: 11-03-2023 ambulatory ZULY KIANA Not Available Start: 10-06-2023 ambulatory Angel Carpio [facility],PharmD Pharmacy Outpatient RX [place] Start: 10-06-2023 Patient encounter procedure Angel Carpio [facility],PharmD Pharmacy Outpatient RX [place] Start: 09-29-2023 ambulatory ZULY BRUNO Facility: [facility] Start: 09-23-2023 [facility] Start: 09-15-2023 [facility] Start: 08-28-2023 End: 09-11-2023 Evaluation and management of inpatient Stevemassiel Farrarmatthew LEIGH Work Phone: [id number] Start: 08-28-2023 End: 08-28-2023 Office outpatient visit 25 minutes Steve S Yeison LEIGH Work Phone: [facility] Comment on above: Immunosuppressed sta tus (Primary Dx); Kidney replaced by transplant; Aftercare following organ transplant; High risk medication use; Other general symptoms and signs; Abnormal blood chemistry; Hypertension secondary to other renal disorders Start: 08-28-2023 ambulatory STEVE Katarzyna FARRARI Facility:[facility] Start: 08-19-2023 ambulatory Meka rueda [facility] Pharmacy Outpatient RX [place] Start: 08-19-2023 Patient encounter procedure Meka Munoz [facility] Pharm[facility] Outpatient [facility] [place] Start: 06-12-2023 End: 06-12-2023 Office outpatient visit 25 minutes Steve LEIGH Work Phone: [facility] Comment on above: 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) Start: 06-12-2023 ambulatory SELF SELF Facility:[facility] Start: 06-10-2023 ambulatory Maren Lynny RP,PharmD Pharmacy Outpatient RX [place] Start: 06-10-2023 Patient encounter procedure Maren Bar RP,PharmD Pharmacy Outpatient RX [place] Start: 05-26-2023 ambulatory ZULY BRUNO Facility: [facility] Start: 04-28-2023 End: 04-29-[address] DOCTOR EVANS Facility:[facility] Start: 03-12-2023 ambulatory Angel Fete RP,PharmD Pharmacy Outpatient RX [place] Start: 03-12-2023 Patient encounter procedure Angel Fete RP,PharmD Pharmacy Outpatient RX [place] Start: 03-10-2023 ambulatory Angel Fete RP,PharmD Pharmacy Outpatient RX [place] Start: 03-10-2023 Patient encounter procedure Angel Fete RPh,PharmD Pharmacy Outpatient [facility] [place] Start: 03-02-2023 End: 03-03-[address] DOCTOR EVANS Facility:[facility] Start: 01-16-2023 End: 01-16-2023 Office outpatient visit 25 minutes Daisha Max DO Work Phone: [facility] Comment on above: Abnormal blood chemi [...] MD Work Phone: [facility] Comment on above: BPH with obstruction /lower urinary tract symptoms (Primary Dx); Encounter for screening for malignant neoplasm of prostate Start: 08-28-2022 End: 08-29-2022 ambulatory ROB BRUNO Facility:[facility] Start: 08-14-2022 End: 08-15-[address] DOCTOR EVANS Facility:[facility] Start: 07-07-2022 End: 07-07-2022 Patient encounter procedure Ryan Yepez MD Work Phone: [facility] Comment on above: Other hydronephrosis (Primary Dx); [...] MD Work Phone: [facility] Comment on above: Other hydronephrosis (Primary Dx) [...] [facility] Comment on above: Immunosuppressed sta tus [...] LAWRENCE Facility:[facility] Start: 03-14-2022 ambulatory Comfort Rivera [facility] Work Phone: Pharmacy Outpatient RX [place] Start: 03-14-2022 Patient encounter procedure Comfort Rivera [facility] Work Phone: Pharmacy Outpatient RX [place] Start: 06-14-2021 End: 06-14-2021 ambulatory Comfort Rivera [facility] Work Phone: [facility] Start: 06-14-2021 Patient encounter procedure Comfort Rivera [facility] Work Phone: [facility] Start: 01-20-2020 End: 01-27-2020 Patient encounter procedure PEPE CASE Facility:[facility] Start: 01-06-2020 End: 01-07-2020 Patient encounter procedure RENA VANNESSAStar [facility] Start: 01-06-2020 End: 01-06-2020 Subsequent hospital visit by physician [facility] Start: 10-24-2019 End: 10-25-2019 Patient encounter procedure TANA S KATHERYN [facility] Start: 10-24-2019 End: 10-24-2019 Subsequent hospital visit by physician [facility] Start: 08-27-2019 End: 08-28-2019 Patient encounter procedure RENA GUDINO [facility] Start: 08-27-2019 End: 08-27-2019 Subsequent hospital visit by physician [facility] Start: 08-08-2019 End: 08-09-2019 [facility] Start: 08-08-2019 End: 08-08-2019 Subsequent hospital visit by physician [facility] Start: 08-03-2019 End: 08-04-2019 Patient encounter procedure [facility] Start: 08-03-2019 End: 08-03-2019 Subsequent hospital visit by physician [facility] Start: 08-01-2019 End: 08-02-2019 Patient encounter procedure [facility] Start: 08-01-2019 End: 08-01-2019 Subsequent hospital visit by physician [facility] Start: 06-10-2019 End: 06-11-2019 Patient encounter procedure [facility] Start: 06-01-2019 End: 06-02-2019 Patient encounter procedure [facility] Start: 01-14-2019 End: 01-15-2019 Patient encounter procedure [facility] Start: 11-17-2018 End: 11-17-2018 Patient encounter procedure Fidelina Pierson [facility] Pre Transplant Office Comment on above: Social Work Follow-u p Start: 10-19-2018 End: 10-19-2018 Patient encounter [facility] Pre Transplant Office Comment on above: Cirrhosis of liver w ithout ascites, unspecified hepatic cirrhosis type (Primary Dx) Start: 10-19-2018 End: 10-19-2018 Office outpatient visit 25 minutes Christin Elizabeth Work Phone: Division of Gastroenterology and Hepatology [place] Comment on above: Alcoholic cirrhosis of liver without ascites (Primary Dx); Pre-transplant evaluation for liver transplant; Hepatic encephalopathy Start: 10-13-2018 End: 10-13-[address] [facility] Pre Transplant Office Comment on above: Reschedule Outside Medical Allan rds Request Start: 10-12-2018 End: 10-12-2018 Patient encounter procedure Sophie Kovatch [facility] Pre Transplant Office Comment on above: Alcoholic cirrhosis, unspecified whether ascites present (Primary Dx); Pre-transplant evaluation for liver transplant Start: 10-12-2018 End: 10-12-2018 Office outpatient new 60 minutes Alfredito Restrepo Work Phone: [facility] [place] Pre Transplant Office Comment on above: Alcoholic cirrhosis, unspecified whether ascites present; ESRD (end stage renal disease) on dialysis; Pre-transplant evaluation for liver transplant Start: 10-06-2018 End: 10-06-2018 Patient encounter procedure Yovani Orr Work Phone: Department of Radiology Comment on above: Canceled (Insurance Company Redirected Pt) Start: 10-05-2018 Patient encounter status Comfort Rivera [facility] Work Phone: [facility] [...] Performed By: #### X M ####[facility] (DEFAULT)[address] [place] [address] Start: 01-22-2024 Assay of magnesium Just in [...] Start: 01-20-2024 ITRACONAZOLE LEVEL Jennifer norbert Alarcon [facility] Work Phone: Start: 01-20-2024 Oscillating [...] nos quantifica tion each organism Fidelina Alarcon [facility] Work Phone: Start: 01-18-2024 Echocardiography [...] AURIS SCREEN BY PCR Carol Ann Capps OUTREACH ASSOCIATE-SAMPLER AND TEST PREPARER Work Phone: Start: 01-08-2024 ALL CBC WITH [...] AURIS SCREEN BY PCR Carol Ann Capps OUTREACH ASSOCIATE-SAMPLER AND TEST PREPARER Work Phone: Start: 08-28-2023 CBC AND ELECTRONIC [...] above: Performed By: #### C MP #### [facility] [address] [place] [address] Dr. Dwight Waters Start: 07-07-2022 Rmvl nfros [...] recipient S/P liver trans plant Comfort Rivera [facility] Work Phone: Start: 04-08-2020 H/O: liver recipient Liver tra nsplant recipient Comfort Rivera [facility] Work Phone: Start: 01-06-2020 Potassium serum plasma/whole blood ROB NIELSKAREN Start: 01-06-2020 Potassium serum plasma/whole blood Rena Gudino Work Phone: Start: 10-24-2019 HEMOGLOBIN AND HEMAT OCRIT, BLOOD ROB CAREY Start: 10-24-2019 Blood count hemoglobin Tana Katarzyna Katheryn Work Phone: Start: 09-20-2019 Colonoscopy Generic Pr [...] De ceased-donor kidney transplant recipient Comfort Rivera [facility] Work Phone: Start: 06-10-2019 HEMOGLOBIN AND HEMAT OCRIT, BLOOD ROB KASMANI Start: 06-01-2019 Blood count hemoglobin ROB KASMANI Start: 03-22-2019 Lipid 1996 panel - S fabricio or Plasma Comfort Rivera [facility] Work Phone: Start: 01-14-2019 Potassium [...] 10-12-2018 End: 10-12-2018 Antibody rubeola Yovani Mejias [employer] Work Phone: Start: 10-12-2018 End: 10-12-2018 Antibody varicella-zoster Yovani Mejias [employer] Work Phone: Start: 10-12-2018 End: 10-12-2018 Assay of ethanol Yovani Mejias [employer] Work Phone: Start: 10-12-2018 End: 10-12-2018 Assay of ferritin Yovani Mejias [employer] Work Phone: Start: 10-12-2018 End: 10-12-2018 Assay of iron Yovani Mejias [employer] Work Phone: Start: 10-12-2018 End: 10-12-2018 Assay of parathormone Yovani Mejias [employer] Phone: Start: 10-12-2018 End: 10-12-2018 Assay of phosphatase alkaline Yovani Orr Work Phone: Start: 10-12-2018 End: 10-12-2018 Bilirubin total Yovani Orr Work Phone: Start: 10-12-2018 End: 10-12-2018 Calcium total Yovani Mejias [employer] Work Phone: Start: 10-12-2018 End: 10-12-2018 CBC, [...] recipient Liver repla vida by transplant Steve Munoz MBAPOORVA Work Phone: H/O: liver recipient Liver [...] transplant Dece ased-donor kidney transplant recipient Steve Katarzyna Yeison MORENOBS Work Phone: Plan of Treatment Date Care Activity Detail Author Start: 09-20-2029 Screening for malignant neoplasm of colon [facility] Start: 03-28-2025 Potassium [Moles/volume] in Serum or Plasma POTASSIUM [facility] Start: 03-21-2025 Potassium [Moles/volume] in Serum or Plasma POTASSIUM [facility] Start: 02-28-2025 Potassium [Moles/volume] in Serum or Plasma POTASSIUM [facility] Start: 01-23-2025 Potassium [Moles/volume] in Serum or Plasma POTASSIUM [facility] Start: 08-31-2024 Screening for malignant neoplasm of lung [facility] Start: 06-17-2024 End: 06-17-2024 ambulatory [facility] Start: 06-17-2024 End: 06-17-2024 Patient encounter procedure [facility] Start: 03-22-2024 Fasting lipid profile LIPID SCREENING [facility] Start: 03-22-2024 Lipid panel [facility] Start: 02-26-2024 End: 02-26-2024 Patient encounter procedure 02/26/2024 9:30 AM EDT Office Visit [facility] [address] [place] [address] Candie Almaguer MD [address] [place] [address] [facility] Start: 02-11-2024 End: 02-11-2024 Patient encounter procedure 02/11/2024 10:30 AM EDT Office Visit [facility] [address] [place] [address] Zuly Bruno, BA [address] [place] [address] [facility] Start: 02-09-2024 End: 02-09-2024 Telemedicine consultation with patient 02/09/2024 3:30 PM EDT Telemedicine Infectious Diseases Care [facility] [address] [facility] [address] [place] [id number] Hakeem Alamo MD [address] [facility] [address] [place] [address] Infectious Diseases Care [facility] Start: 01-15-2024 End: 01-15-2024 ambulatory [facility] Start: 01-15-2024 End: 01-15-2024 Patient encounter procedure [facility] Start: 01-06-2024 End: 01-06-2026 Echocardiogram 2D complete Echocardiogram 2D complete Echocardiography Routine DARLENE (obstructive sleep apnea) Primary hypertension ([facility]) Bilateral lower extremity edema Shortness of breath Expected: 01/06/2024 (Approximate), Expires: 01/06/2026 [facility] Work Phone: Comment on above: Expected: 01/06/2024 (Approximate), Expi res: 01/06/2026 Start: 01-06-2024 End: 01-06-2024 Patient encounter procedure 01/06/2024 9:00 AM EST Office Visit [facility] [address] [place] [address] Zuly Bruno, BA [address] [place] [address] [facility]SELL Start: 12-08-2023 End: 09-07-2024 CT Chest WO contrast [facility] Work Phone: Start: 12-01-2023 COVID-19 VACCINE (2 - Moderna risk series) COVID-19 VACCINE (2 - Moderna risk series) [facility] Start: 09-23-2023 End: 09-23-2023 ambulatory Infectious Diseases Care [facility] Start: 09-23-2023 End: 09-23-2023 Telemedicine consultation with patient 09/23/2023 4:00 PM EDT Telemedicine Infectious Diseases Care [facility] [address] [place] [address] Hakeem Alamo MD [address] [place] [address] Infectious Diseases Care [facility] Start: 09-15-2023 End: [...] procedure 06/12/2023 Office Visit Transplant Surgery Steve Munoz, LU [address] [place] [address] [facility] Start: 03-11-2023 End: 03-11-2023 Telemedicine consultation with patient 03/11/2023 Telemedicine Urology Ryan Yepez MD [address] [facility] [address] [place] [phone] [facility] Start: 01-16-2023 End: 01-16-2023 Patient encounter procedure 01/16/2023 Office Visit Transplant Surgery [facility] Start: 10-31-2022 End: 10-31-2022 Patient encounter procedure 10/31/2022 Office Visit Transplant Surgery Steve Munoz, LU [address] [place] [phone] [facility] Start: 09-10-2022 End: 09-10-2023 PSA screening PSA, SCREENING Lab Routine BPH with obstruction/lower urinary tract symptoms Encounter for screening for malignant neoplasm of prostate Expected: 09/10/2022 (Approximate), Expires: 09/10/2023 [facility] Comment on above: Expected: 09/10/2022 (Approximate), Expi res: 09/10/2023 Start: 08-11-2022 End: 08-11-2022 Patient encounter procedure 08/11/2022 Office Visit Urology Ryan Yepez MD [address] [facility] [address] [place] [address] [facility] Start: 07-31-2022 Influenza vaccination [facility] Start: 07-07-2022 End: 07-07-2022 Patient encounter procedure 07/07/2022 Office Visit Ryan Webster MD [address] [facility] [address] [place] [phone] [facility] Start: 07-07-2022 End: 07-07-2023 FLUORO IMAGING FOR UROLOGY [facility] Comment on above: Expected: 07/07/2022, Expires: 3 1 Occurrences starti ng 07/07/2022 until 07/07/2022 Start: 06-27-2022 End: 06-27-2022 Patient encounter procedure 06/27/2022 Office Visit Urology Ryan Yepez MD [address] [facility] [address] [place] [address] [facility] Start: 06-27-2022 End: 06-27-2023 Basic metabolic 2000 panel - Serum or Plasma BASIC METABOLIC PANEL Lab Routine Other hydronephrosis Expected: 06/27/2022, Expires: 06/27/2023 [facility] Comment on above: Expected: 06/27/2022, Expires: Start: 06-27-2022 End: 06-27-2022 Patient encounter procedure 06/27/2022 Appointment Computerized Tomography Scan Ryan Yepez MD [address] [facility] [address] [place] [phone] Department of Radiology Start: 06-15-2022 End: 05-16-2023 [...] MBBS [address] [place] [id number] [facility] Start: 06-11-2022 End: 06-11-2023 BK VIRUS [...] LU [address] [place] [address] [facility] Start: 07-31-2021 Influenza vaccination INFLUENZA VACCINE (#1) [facility] Start: 07-26-2021 End: 07-26-2021 Patient encounter procedure 07/26/2021 Office Visit Transplant Surgery [facility] Start: 2021 Prostate specific antigen measurement [place] [...] Start: 07-31-2019 Influenza vaccination Flu vaccine (#1) [place], [place] Start: 05-22-2019 Annual Wellness Visit (AWV) Annual Wellness Visit (AWV) [place] Start: 04-18-2019 End: 10-19-2019 Ultrasonography of abdomen US ABDOMEN RUQ/LIVER/GB Routine Cirrhosis of liver without ascites, unspecified hepatic cirrhosis type Expected: 04/18/2019 (Approximate), Expires: 10/19/2019 [facility] Work Phone: Comment on above: Expected: 04/18/2019 (Approximate), Expi res: 10/19/2019 Start: 01-25-2019 End: 01-25-2019 Ambulatory 01/25/2019 Office Visit Gastroenterology Christin Elizabeth, OUTREACH ASSOCIATE-MAINTENANCE [employer] [address] [place] [address] Division of Gastroenterology and Hepatology Gavin Start: 11-19-2018 End: 11-19-2018 Ambulatory 11/19/2018 Appointment Pulmonary Diagnostics [facility] Start: 11-19-2018 End: 11-19-2018 Ambulatory [facility] Start: 10-19-2018 End: 10-19-2018 Ambulatory Ultrasound Jakob Start: 10-12-2018 End: 10-12-2019 Hemoglobin A1c/Hemoglobin.total mass fraction (Bld) HEMOGLOBIN A1C Routine Alcoholic cirrhosis, unspecified whether ascites present Pre-transplant evaluation for liver transplant Expected: 10/12/2018, Expires: 10/12/2019 [facility] Work Phone: Comment on above: Expected: 10/12/2018, Expires: 9 Start: 10-12-2018 End: 10-12-2019 TYPE AND SCREEN - NOT FOR TRANSFUSION TYPE AND SCREEN - NOT FOR TRANSFUSION Routine Alcoholic cirrhosis, unspecified whether ascites present Pre-transplant evaluation for liver transplant Expected: 10/12/2018, Expires: 10/12/2019 [facility] Work Phone: Comment on above: Expected: 10/12/2018, Expires: 9 Start: 07-31-2018 Influenza vaccination INFLUENZA VACCINE (#1) [facility] Work Phone: Start: 2011 Fasting lipid profile LIPID SCREENING [facility] Work Phone: Start: 2011 Lipid screen Lipid screen [place] Start: 1990 DTaP/Tdap/Td vaccine (1 - Tdap) DTaP/Tdap/Td vaccine (1 - Tdap) [place] Start: 1990 Hepatitis B vaccination HEP B VACCINE (1 of 3 - 19+ 3-dose series) [facility] Start: 1990 Hepatitis B Vaccine (1 of 3 - Risk Recombivax 3-dose series) Hepatitis B Vaccine (1 of 3 - Risk Recombivax 3-dose series) [place] Start: 1990 Third diphtheria, tetanus and acellular pertussis (DTaP) vaccination [facility] Start: 1990 Zoster vaccine hzv live for subcutaneous use ZOSTER (SHINGLES) VACCINE (1 of 2) [facility] Start: 1990 [facility] Start: 1989 Tetanus vaccination TETANUS [facility] Start: 1986 HIV screen HIV screen [place] Start: 02-17-1984 HIV screening HIV SCREENING DISCUSSION [facility] Work Phone: Start: 1983 COVID-19 VACCINE (1) COVID-19 VACCINE (1) [facility] Start: 1982 DTaP/Tdap/Td vaccine (1 - Tdap) DTaP/Tdap/Td vaccine (1 - Tdap) [place] Start: 1977 Pneumococcal 0-64 years Vaccine (1 of 3 - PCV13) Pneumococcal 0-64 years Vaccine (1 of 3 - PCV13) [place] Start: 1977 PNEUMOCOCCAL VACCINE SERIES (1 - PCV) PNEUMOCOCCAL VACCINE SERIES (1 - PCV) [facility] Start: 1977 PNEUMOCOCCAL VACCINE SERIES (1 of 2 - PCV) PNEUMOCOCCAL VACCINE SERIES (1 of 2 - PCV) [facility] Start: 1977 [facility] Start: 02-17-1976 COVID-19 VACCINE (#1) COVID-19 VACCINE (#1) [facility] Start: 02-17-1976 [facility] Start: 1971 COVID-19 VACCINE (#1) COVID-19 VACCINE (#1) [facility] Start: 1971 Hepatitis B vaccination HEP B VACCINE (1 of 3 - 3-dose series) [facility] Start: 1971 Medicare Annual Wellness (AWV) Medicare Annual Wellness (AWV) [facility] Start: 1971 Screening for malignant neoplasm of colon [facility] Start: 1971 Tetanus vaccination [facility] [...] evaluation for liver transplant 10/12/2018 12:57 PM [facility] Work Phone: End: 09-10-2024 CHEM 6 (LYTES, BUN CREA) [facility] EBV VCA IGG AB EBV VCA IGG AB R outine Alcoholic cirrhosis, unspecified whether ascites present ESRD (end stage renal disease) on dialysis Pre-transplant evaluation for liver transplant 10/12/2018 12:57 PM [facility] Work Phone: Fungus identified in Unspecified specimen by Culture [facility] HLA TYPING (SOLID ORGAN) HLA TYPING (SOLID ORGAN) Routine Alcoholic cirrhosis, unspecified whether ascites present ESRD (end stage renal disease) on dialysis Pre-transplant evaluation for liver transplant 10/12/2018 12:57 PM [facility] Work Phone: HSV 1 AND 2 IGG ANTIBODY HSV 1 AND 2 IGG ANTIBODY Routine Alcoholic cirrhosis, unspecified whether ascites present ESRD (end stage renal disease) on dialysis Pre-transplant evaluation for liver transplant 10/12/2018 12:57 PM [facility] Work Phone: 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 specific culture [facility] PLACEMENT NEPHROSTOM Y CATHETER PERCUTANEOUS W/ IMAGE GUIDANCE PLACEMENT NEPHROSTOMY CATHETER PERCUTANEOUS W/ IMAGE GUIDANCE Imaging Routine Hydronephrosis due to obstruction of ureteral orifice FAYE (acute kidney injury) 05/17/2022 11:08 AM EDT [facility] UT POST VOID RESIDUAL UT POST VO ID RESIDUAL UT - OFFICE PERFORMED Routine BPH with obstruction/lower urinary tract symptoms Ordered: 09/10/2022 [facility] Comment on above: Ordered: 09/10/2022 PTH INTACT PTH INTACT Routi ne Alcoholic cirrhosis, unspecified whether ascites present ESRD (end stage renal disease) on dialysis Pre-transplant evaluation for liver transplant 10/12/2018 12:57 PM [facility] Work Phone: RUBEOLA IGG AB (IMMU NE STATUS) RUBEOLA IGG AB (IMMUNE STATUS) Routine Alcoholic cirrhosis, unspecified whether ascites present ESRD (end stage renal disease) on dialysis Pre-transplant evaluation for liver transplant 10/12/2018 12:57 PM [facility] Work Phone: End: 01-16-2024 Standard ECG ECG ECG Routine One Time for 1 Occurrences starting 01/16/2024 until 01/16/2024 [facility] Comment on above: One Time for 1 Occurrences starting 12/31 until 01/16/2024 End: 09-10-2024 TACROLIMUS LEVEL, TROUGH (PRE DRUG LEVEL) [facility] VARICELLA IGG AB (IM M STATUS) VARICELLA IGG AB (IMM STATUS) Routine Alcoholic cirrhosis, unspecified whether ascites present ESRD (end stage renal disease) on dialysis Pre-transplant evaluation for liver transplant 10/12/2018 12:57 PM [facility] Work Phone: Immunizations Immunization Date Immunization Notes Care Provider Zeeshan yi 11-03-2023 influenza virus vacc ine, unspecified formulation Generic Provider [facility] 11-03-2023 Moderna SARS-CoV-2 50mcg/0.5mL Booster Generic Provider [facility] Payers Date Payer Category Payer Unknown [id number] 2019 Unknown [facility] [id number] 2019-Present [id number] 2018 Medicaid [place]ID [place] [facility] DEPT OF JOB xxxxxxxxxxxx 2018-Present [phone] [address] [place] [address] xxxxxxxxxxxx [id number] .[id number] 2018 Medicaid MEDICAID MEDICAI D [id number] 2018-Present [address] [place] [address] [id number] .[id number] 2018 Medicaid [id number] [id number] .[id number] 2018 Medicare MEDICARE MEDICAR E PART A AND B xxxxxxxxxxx 2018-Present [phone] [address] [address] [place] [address] xxxxxxxxxxx [id number] .[id number] 2018 Medicare [id number] 2018 Medicare MEDICARE MEDICAR E A AND B [id number] 2018-Present [address] [place] [address] [id number] .[id number] 2018 Medicare [id number]. 1.13.172.2.7.3 .993695.315 1971 Unknown [id number] 2.16.840.1.428090.3.579.2.173 1971 Unknown [id number] 2.16.840.1.816755.3.579.2.173 1971 Unknown [id number] 2.16.840.1.889506.3.579.2.173 1971 Unknown [id number] 2.16.840.1.602569.3.579.2.173 1971 Unknown [id number] 2.16.840.1.911365.3.579.2.173 1971 Unknown [id number] 2.16.840.1.173661.3.579.2.173 1971 Unknown [id number] 2.16.840.1.478176.3.579.2.173 1971 Unknown [id number] 2.16.840.1.188964.3.579.2.173 1971 Unknown [id number] 2.16.840.1.938955.3.579.2.647 1971 Unknown [id number] 2.16.840.1.847397.3.579.2.593 1971 Unknown [id number] 2.16.840.1.188324.3.579.2.593 1971 Unknown [id number] 2.16.840.1.208014.3.579.2.593 1971 Unknown [id number] 2.16.840.1.688667.3.579.2.593 1971 Unknown [id number] 2.16.840.1.931189.3.579.2.593 1971 Unknown [id number] 2.16.840.1.193812.3.579.2.593 1971 Unknown [id number] 2.16.840.1.887237.3.579.2.593 1971 Unknown [id number] 2.16.840.1.489400.3.579.2.593 1971 Unknown [id number] 2.16.840.1.980449.3.579.2.593 1971 Unknown [id number] 2.16.840.1.100352.3.579.2.593 1971 Unknown [id number] 2.16.840.1.599042.3.579.2.593 1971 Unknown [id number] 2.16.840.1.358153.3.579.2.593 1971 Unknown [id number] 2.16.840.1.575688.3.579.2.593 1971 Unknown [id number] 2.16.840.1.002326.3.579.2.593 1971 Unknown [id number] 2.16.840.1.627940.3.579.2.593 1971 Unknown [id number] 2.16.840.1.240010.3.579.2.125 9 1971 Unknown [id number] 2.16.840.1.081961.3.579.2.125 9 1971 Unknown [id number] 2.16.840.1.596765.3.579.2.125 9 1971 Unknown [id number] 2.16.840.1.589387.3.579.2.125 9 1971 Unknown [id number] 2.16.840.1.273960.3.579.2.125 9 1971 Unknown [id number] 2.16.840.1.205509.3.579.2.125 9 1971 Unknown [id number] 2.16.840.1.273966.3.579.2.125 9 1971 Unknown [id number] 2.16.840.1.683108.3.579.2.125 9 1971 Unknown [id number] 2.16.840.1.992667.3.579.2.125 9 1971 Unknown [id number] 2.16.840.1.733338.3.579.2.125 9 1971 Unknown [id number] 2.16.840.1.331587.3.579.2.125 9 1971 Unknown [id number] 2.16.840.1.081274.3.579.2.125 9 1971 Unknown [id number] 2.16.840.1.511136.3.579.2.125 9 1971 Unknown [id number] 2.16.840.1.564255.3.579.2.125 9 1971 Unknown [id number] 2.16.840.1.485475.3.579.2.594 1971 Unknown [id number] 2.16.840.1.686675.3.579.2.594 1971 Unknown [id number] 2.16.840.1.691227.3.579.2.594 1971 Unknown [id number] 2.16.840.1.716312.3.579.2.594 1971 Unknown [id number] 2.16.840.1.439652.3.579.2.594 1971 Unknown [id number] 2.16.840.1.059434.3.579.2.594 1971 Unknown [id number] 2.16.840.1.445174.3.579.2.594 1971 Unknown [id number] 2.16.840.1.222853.3.579.2.594 1971 Unknown [id number] 2.16.840.1.723117.3.579.2.594 1971 Unknown [id number] 2.16.840.1.164443.3.579.2.594 1971 Unknown [id number] 2.16.840.1.449624.3.579.2.594 1971 Unknown [id number] 2.16.840.1.123406.3.579.2.594 1959 Medicaid [id number] 1959 Medicare [id number] Social History Date Type Detail Facility Start: 07-19-2018 End: 10-19-2018 Tobacco smoking status NHIS Former smoker [facility] Start: 07-19-1988 End: 05-14-2018 History of tobacco use Current smoker [facility] Work Phone: Start: 07-19-1988 End: 05-14-2018 History of tobacco use Cigarette Smoker [facility] Work Phone: Start: 10-19-2018 End: 03-24-2024 Cigarettes smoked current (pack per day) - Reported [facility] End: 07-19-1994 History of tobacco use Chews Tobacco [facility] Work Phone: Start: 1970 Sex Assigned At Not on file [facility] Work Phone: Start: 11-03-2018 Alcohol intake Current non-drinker of alcohol (finding) [place] Start: 06-22-2018 Alcohol Comment Hx of alcoholism [place] Start: 11-03-2018 End: 03-24-2024 Alcohol intake No [facility] Start: 07-19-2018 Tobacco use and exposure Former user [facility] Start: 09-06-2020 End: 03-24-2024 Alcohol intake Ex-drinker (finding) [facility] Start: 07-19-2018 Alcohol Comment stopped 05/14/2018 [facility] Start: 05-05-2022 End: 01-16-2023 Exposure to SARS-CoV-2 (event) Not sure [facility] Start: 07-07-2018 Gender identity Identifies as male gender (finding) [facility] Start: 01-16-2022 Sexual orientation Heterosexual (finding) [facility] Start: 11-03-2023 Tobacco use and exposure [...] [facility] Start: 11-02-2023 Alcohol Comment Former [facility] Medical Equipment Procedure Code Equipment Code Equipment Original Text Equipment Identifier Dates [id number] Start: 05-23-2020 [id number] Start: 04-12-2020 [id number] FDA Start: 05-17-2022 Comment on above: [...] 05-13-2024 Melody Aissatou - 03/24/2024 4:12 PM EDTTemil Gypsum - 03/24/2024 4:12 PM Angie Rajput - 03/24/2024 4:12 PM EDTRmonster Aissatou - 03/24/2024 4:12 PM EDTTaylor Gypsum - 03/24/2024 4:12 PM EDTAttachments Note Date & Type Note Facility 05-13-2024 Note [facility] Subjective George Styles is a [...] Currently HPI George is seen in follow up. He is [...] , Rfl: t (more content not included)... [facility] 03-24-2024 History of Present illness Narrative [facility]REACH ADVANCED: Call Information: Date and Time of Contact: 03/24/2024 4:14 PM Method of Contact: By Phone Contact Type: Prescriptions Contactor: [facility] Contactee: Patient Contact Outcome: Left message Shipping/Pickup: Medication Name: Prograf 0.2mg pack Contact Info: Specialty ([place]) [phone] [facility] [phone] [facility] [phone] David [phone] Bedside Delivery ([facility]) [phone] [facility] OUTREACH ADVANCED: Call Information: Date and Time of Contact: 03/28/2024 3:58 PM Method of Contact: By Phone Contact Type: Prescriptions Contactor: [facility] Contactee: Patient Contact Outcome: Left message and Call back later Shipping/Pickup: Medication Name: Mycophenolate, prograf Contact Info: Specialty ([place]) [phone] [facility] [phone] [facility] [phone] David [phone] Bedside Delivery ([facility]) [phone] [facility] OUTREACH ADVANCED: Call Information: Method of Contact: By Phone Contact Type: Prescriptions Contactor: Patient Contactee: [facility] Shipping/Pickup: Medicare B Refill?: No Medication Name: Mycopheolate 360mg and Prograf Delivery Method: Ship Delivery Location: Home Signature Required: No Receive/Pickup Date: 04/04/2024 Shipping Address: [address] [place] [address] [address] Contact Info: Specialty ([place]) [phone] [facility] [phone] [facility] [phone] David [phone] Bedside Delivery ([facility]) [phone] documented in this encounter [facility] 03-24-2024 History of Present illness Narrative [facility]RE[facility]ED: Call Information: Date and Time of Contact: 03/24/2024 4:14 PM Method of Contact: By Phone Contact Type: Prescriptions Contactor: [facility] Contactee: Patient Contact Outcome: Left message Shipping/Pickup: Medication Name: Prograf 0.2mg pack Contact Info: Specialty ([place]) [phone] [facility] [phone] [facility] [phone] David [phone] Bedside Delivery ([facility]) [phone] [facility] OUTREACH ADVANCED: Call Information: Date and Time of Contact: 03/28/2024 3:58 PM Method of Contact: By Phone Contact Type: Prescriptions Contactor: [facility] Contactee: Patient Contact Outcome: Left message and Call back later Shipping/Pickup: Medication Name: Mycophenolate, prograf Contact Info: Specialty ([place]) [phone] [facility] [phone] [facility] [phone] David [phone] Bedside Delivery ([facility]) [phone] [facility] OUTREACH ADVANCED: Call Information: Method of Contact: By Phone Contact Type: Prescriptions Contactor: Patient Contactee: [facility] OP Shipping/Pickup: Medicare B Refill?: No Medication Name: Mycopheolate 360mg and Prograf Delivery Method: Ship Delivery Location: Home Signature Required: No Receive/Pickup Date: 04/04/2024 Shipping Address: [address] [place] [address] [address] Contact Info: Specialty ([place]) [phone] [facility] [phone] [facility] [phone] David [phone] Bedside Delivery ([facility]) [phone] [facility] OUTREACH ADVANCED: Pre-Verification/Specialty Assessment/Disease [...] Within normal limits Contact Info: Specialty ([place]) [phone] Jakob [phone] [facility] [phone] David [phone] Bedside Delivery ([facility]) [phone] documented [facility] 03-[facility] History of Present illness [...] del of broth Contact Info: Specialty ([place]) [phone] [facility] [phone] [facility] [phone] David [phone] Bedside Delivery ([facility]) [phone] [facility] OUTREACH ADVANCED: Call Information: Date and Time of Contact: 03/02/2024 3:49 PM Method of Contact: By Phone Contact Type: Prescriptions Contactor: [facility] Contactee: Patient Contact Outcome: Left message and Follow-up Shipping/Pickup: Medication Name: Myco 360mg and Prograf 0.2mg Contact Info: Specialty ([place]) [phone] [facility] [phone] [facility] [phone] David [phone] Bedside Delivery ([facility]) [phone] [facility]REACH ADVANCED: Call Information: Date and Time of Contact: 03/02/2024 4:08 PM Method of Contact: By Phone Contact Type: Prescriptions Contactor: [facility] Contactee: Patient Shipping/Pickup: Medicare B Refill?: No Medication Name: Myco 360 / prograf 0.2 Delivery Method: Ship Delivery Location: Home Signature Required: No Receive/Pickup Date: 03/03/2024 Shipping Address: [address] [place] [address] [address] Contact Info: Specialty ([place]) [phone] [facility] [phone] [facility] [phone] David [phone] Bedside Delivery ([facility]) [phone] documented in this encounter [facility] 02-26-2024 History of Present illness [...] the HF Clinic at the [facility] at [facility] on 02/26/2024 for initial evaluation [...] Left; Surgeon: Jyoti Bryant MD, PhD; Location: [facility] MAIN OR PLACEMENT NEPHROSTOMY CATHETER PERCUTANEOUS W/ IMAGE GUIDANCE 05/17/2022 Surgeon: Enzo Heart DO; Location: [facility] INTERVENTIONAL RADIOLOGY (VIR) LIVER TRANSPLANT, ORTHOTOPIC N/A 04/12/2020 Laterality: N/A; Surgeon: LU Palma; Location: [facility] SAME DAY SURGERY MAIN OR KIDNEY TRANSPLANT W/O KIPNUK NEPHRECTOMY N/A 04/12/2020 Laterality: N/A; Surgeon: LU Palma; Location: [facility] SAME DAY SURGERY MAIN [...] qd Antithrombotic: no Statin: no ICD: NA ANTIQUE JEWELRY REPAIRER: NA CV Test results: ECHOCARDIOGRAM 01/18/2024 (Final) Interpretation Summary Left Ventricle: Chamber size is normal. Increased wall thickness. Concentric hypertrophy. Normal global systolic function. Regional wall motion is normal. Ejection fraction is normal (55 - 60%). Right Ventricle: Chamber size is normal. Systolic function is low normal. No hemodynamically significnat valve disease. Moderate pericardial effusion. There is no evidence of tamponade. RH (01/20/24) Hemodynamic Summary: Baseline Hemodynamics Systemic BP [...] will be BP control. Candie Almaguer M.D. engagement engineer Advanced Heart Failure Program Division of Cardiovascular Medicine [facility] [email or web address] [phone] fax [phone] documented in this encounter [facility] 02-26-2024 Instructions Marsha Mckeon RN - 02/26/2024 9:30 AM EDT The following instructions were given today: Labs today Follow up with Dr. Almaguer as needed. Your after visit summary (AVS) is viewable in [facility] My [facility]. Call RN if you have cardiac questions/concerns M-F 8 to 4:30 ; office # [phone], option 6, then option 2. Guidelines for home management: 1. Continue to monitor weight first thing each morning. 2. Report to the CHF CLINIC ([phone]) any significant weight change. Remember that weight [...] to have labs/tests run outside of the [facility] and you do not hear from us 1-2 days after they are performed, you must call us to ensure we received the results. Office fax # [phone]. No news does not necessarily mean that your tests are normal, it could mean we did not get the results. For questions/updates: please provide your name with spelling, date of and question or update All calls are prioritized and responses researched, if possible, prior to calls being returned. Call Scheduling for any appointment/procedure verification or changes [phone], option 7 or [facility] at [phone], option 1. documented [facility] Nurse Note Jakob wrap [...] understanding on picking up needed prescriptions at [facility] as listed on discharge summary. Patient denies any unanswered questions at this time. Patient has been discharged with all of their belongings, transported via wheelchair on oxygen to front entrance for [facility] home on home oxygen supply. [facility] 01-23-2024 Miscellaneous Notes Jakob wrap & [...] understanding on picking up needed prescriptions at [facility] as listed on discharge summary. Patient [...] Pain): verbalization of pain descriptors George Styles ([id number]) PRE OPERATIVE DIAGNOSIS High output congestive heart failure [I50.83] POST OPERATIVE DIAGNOSIS Post-Op Diagnosis Codes: * High output congestive heart failure [I50.83] PROCEDURE PERFORMED Procedure(s) (LRB): LIGATION ANGIOACCESS AVF (Left) Resection of large aneurysmic vein PRIMARY CLOSURE Yes INTRAOPERATIVE FINDINGS No significant abnormalities SURGEON Surgeons and Role: * Jyoti Bryant MD, PhD - Primary ANESTHESIOLOGIST Anesthesiologist: Celena Tiwari MD; Kehinde Gutierrez MD WIRE DROPPER: David Jasso APRN-WIRE DROPPER Job Setter Honing Assisting: Mini Khan MD SURGICAL STAFF Research Archaeologist: Zoila Lawrence RN Relief Research Archaeologist: Marimar Saravia RN Relief Scrub: Briseyda Self [...] patient breathing easily. Report received from surgical processor and report received from anesthesiology. Pt arrived [...] Axillary block. SURGEON(S): Jyoti Bryant MD, PHD COUNTER MANAGER: Mynor Fall MD ESTIMATED BLOOD LOSS: Minimal. [...] MD, PHD Jyoti Bryant MD, PHD ATTENDING AR/MedFlorencio JOB: [id number] DOC: [id number] Patient has been asleep this shift. He [...] overnight coverage, Jasper Gastelum MD, via pager #[phone] Pt- Mark. Sarah Styles 1082. TM1. Was wondering if he can have his Melatonin order increased to 6mg. Per pt, he usually takes 8mg at home. -SAMI Duffy #[phone] Tati Charles RN Internal Medicine Daily Progress Note Patient: George Styles, 1970, [id number] Physician: Arelis Mera MD, PGY3, Pager #[phone], TM1 service Assessment/Plan: George Styles is a [...] home amlodipine 5mg CAD: non-obstructive CAD on [facility] 2018. - continue home aspirin [...] Mera MD Mr. Styles was admitted to [address] [place] [address]. On admission to [facility], from outside facility a dual RN initial assessment of skin condition was performed by Izzy Gutierrez RN and Leroy Singleton RN. Skin Assessment: Skin within defined limits:Yes Jose Score: 20 Wound Vision Sap Technical Architect images obtained: No LDA Added: No Based [...] station when available. documented in this encounter [facility] 01-23-2024 Nurse Note Home Oxygen Qualification [...] of oxygen is also required.) [facility] 01-23-2024 History of Present illness Narrative [...] mg Oral Daily Kelvin Pacheco MD, JOSHBS assistant professor of philosophy Transplant nephrology Surgery Post-Op Check Note George [...] concerns - Will continue to monitor Leonel D Harris, DO General Surgery Pager [phone] CM went to bedside to talk with patient. Patient states he has home oxygen through [employer]. He uses 2.5 LNC around the clock. Patient states his brother will bring a tank for discharge. Anticipate patient will discharge tomorrow AM. Brother updated. Girish Oro RN, BSN Clinical Investigator Narcotics Please note that I am a float caser in and may not cover the same service every day. Please call the main Case Management office at [phone] for up-to-date coverage. Verified patients identity using [...] Daily Progress Note Patient: George Styles, 1970, [id number] Physician: Yury Ozuna MD, PGY1, Pager #[phone], TM1 service Assessment/Plan: George Styles is a [...] home amlodipine 5mg CAD: non-obstructive CAD on [facility] 2018. - continue home aspirin [...] with the Nutrition plan outlined in the Network Desktop Support Specialist s note. DVT prophylaxis with lovenox Diet [...] Kelvin Pacheco MD, MBBS assistant professor of philosophy Transplant nephrology Patient seen and examined at [...] Oral BID AC Kelvin Pacheco MD, MBBS assistant professor of philosophy Transplant nephrology Images from the original note were not included. Internal Medicine Daily Progress Note Patient: George Styles, 1970, [id number] Physician: Yury Ozuna MD, PGY1, Pager #[phone], OH5 service Assessment/Plan: George Styles is a 53 [...] home amlodipine 5mg CAD: non-obstructive CAD on [facility] 2018. - continue home aspirin [...] with the Nutrition plan outlined in the Network Desktop Support Specialist s note. DVT prophylaxis with lovenox Diet [...] Provider: Zuly Bruno NP [facility]: [facility] Other Comments: Patient reported his Last Home Dose of mycophenolate and tacrolimus was on 01/15/24 at 0700. Medications that need removed from Outside Medication Reconciliation list: Please remove all medications. Please feel free to contact me with any further questions. Name: Heidy Chatman Phone #: [phone] Date/Time: 01/19/2024 12:08 PM Time Spent: 15 minutes Associated attestation - Fidelina Alarcon RPH - 01/19/2024 12:41 PM EST Department of Pharmacy Admission Medication Reconciliation Note Patient: George Styles Room/Bed: 1082/A I have reviewed the home medication list with the Real Time Analyst. The home medication list status is: complete. All changes to the home medication list have been updated in [facility]. Updated SOURCING INTERN Med List: Prior to Admission Medications Prescriptions [...] with any further questions. Name: Fidelina Alarcon [facility] Phone #: [phone] Date/Time: 01/19/2024 12:41 PM Internal Medicine Daily Progress Note Patient: George Styles, 1970, [id number] Physician: Yury Ozuna MD, PGY1, Pager #[phone], TM1 service Assessment/Plan: Acute Hypoxic Respiratory Insufficiency [...] home amlodipine 5mg CAD: non-obstructive CAD on [facility] 2018. - continue home aspirin [...] with the Nutrition plan outlined in the Network Desktop Support Specialist s note. DVT prophylaxis with lovenox Diet [...] Kelvin Pacheco MD, MBBS assistant professor of philosophy Transplant nephrology Internal Medicine Daily Progress Note Patient: George Styles, 1970, [id number] Physician: Yury Ozuna MD, PGY1, Pager #[phone], TM1 service Assessment/Plan: Updates: - continued diuresis [...] home amlodipine 5mg CAD: non-obstructive CAD on [facility] 2018. - continue home aspirin [...] with the Nutrition plan outlined in the Network Desktop Support Specialist s note. DVT prophylaxis with lovenox Diet [...] Kelvin Pacheco MD, MBBS assistant professor of philosophy Transplant nephrology Pt known to tube building machine operator from previous admissions. Provided emotional and spiritual support. Patient shared about: family support, medical course Nurse Ob provided: - Supportive presence - Active listening - Validation of feelings/emotions Patient encouraged to request a tube building machine operator as needed. Chaplains are available in-house 24 hours a day and 7 days a week. For urgent matters in [facility], please page [phone]. If the request is not urgent, please enter a consult. Consults are responded to within 24 hours. Senior Staff Nurse Ob Angie Singh Mdiv, [facility] [phone] [email or web address] On-call TYLOR: outbound call center representative David: 22/06 Pager TYLOR,[facility], and Brock Maciel Pager [phone] 01/18/24 1340 Clinical Encounter Type Visited With Patient Visit Type Introduction Pastoral Time Spent 15 min Referral Other (See Comment) (rounding) Spiritual Assessment Emotional Observation Coping well;Anxiety Hope Observation Specific hope focus Support Observation By Family Interventions Provided Active listening;Supportive presence Facilitated Verbalization of feelings;Identifying support system;Identifying Sources of spiritual well-being Explored Expectations;Treatment decisions Stock Control Supervisor Education Stock Control Supervisor Service Available Yes Educated Patient Outcomes [...] interaction. Name: Fidelina Alarcon RPH Phone #: [phone] Date/Time: 01/18/2024 9:56 AM Discharge Planning Patient Assessment Admission Assessment Patient Assessment Completed: Initial Anticipated discharge disposition: Home Reason for Admission: sob Is the patient able to participate in the assessment?: Yes Information source: Patient Information Source Name/Contact: Geogre Styles Demographics Verified and Updated: Yes Has [...] Yes Name and Contact information: Gian Styles ([phone]) Would you like to add additional adult [...] Is the patient from a facility or skilled nursing?: No Patient lives with: Alone Living Environment: [...] oxygen?: Yes Oxygen Provider and Contact : [employer] Liter-Flow?: 20/01- Order for oxygen use?: unknown [...] patient on Anticoagulation? : No [id number] [place] [address] - [address] [facility] [address] [facility] [address] Driver Sales Does the patient or financial representative express financial concerns? : No Employed?: [...] Plan 1. Identified self and role as Investigator Narcotics. 2. Confirmed and updated demographics and treatment team. 3. Investigator Narcotics will continue to follow with medical team for any other additional discharge needs. Kasandra DON RN [facility] [phone] *Please note I am float CM and work Thursday and Thursday every other week. Please call [phone] for assist in my absence. Internal Medicine Daily Progress Note Patient: George Styles, 1970, [id number] Physician: Yury Ozuna MD, PGY1, Pager #[phone], PO2 service Assessment/Plan: Updates: - continue diuresis with [...] home amlodipine 5mg CAD: non-obstructive CAD on [facility] 2018. - continue home aspirin [...] ordered 2D echo. Kevin Sage MD, MADISONN Civil Engineer In Training of Clinical Medicine [facility] [employer] [facility] documented in this encounter [facility] 01-23-2024 Plan of care note Patient [...] Pain): verbalization of pain descriptors [facility] 01-22-2024 Hospital Discharge instructions Arelis Mera [...] your doctor for further instructions. Please call [phone], Option 1 or [phone] to schedule your appointment with the Heart Failure Clinic. Arelis Mera MD - 01/22/2024 3:08 PM EST You can change your dressing 48 hours from the procedure The following attachments cannot be sent through Care Everywhere.Heart Failure: Avoiding Triggers (Belgian)Heart Failure: Limiting Sodium (Belgian)Pain and Pain Control ([facility]) (Belgian)documented in this encounter [facility] 01-22-2024 Surgery Postoperative evaluation and management note George Styles ([id number]) PRE OPERATIVE DIAGNOSIS High output congestive heart failure [I50.83] POST OPERATIVE DIAGNOSIS Post-Op Diagnosis Codes: * High output congestive heart failure [I50.83] PROCEDURE PERFORMED Procedure(s) (LRB): LIGATION ANGIOACCESS AVF (Left) Resection of large aneurysmic vein PRIMARY CLOSURE Yes INTRAOPERATIVE FINDINGS No significant abnormalities SURGEON Surgeons and Role: * Jyoti Bryant MD, PhD - Primary ANESTHESIOLOGIST Anesthesiologist: Celena Tiwari MD; Kehinde Gutierrez MD WIRE DROPPER: David Jasso APRN-WIRE DROPPER Job Setter Honing Assisting: Mini Khan MD SURGICAL STAFF Research Archaeologist: Zoila Lawrence RN Relief Research Archaeologist: Marimar Saravia RN Relief Scrub: Briseyda Self [...] patient breathing easily. Report received from surgical processor and report received from anesthesiology. Pt arrived [...] Axillary block. SURGEON(S): Jyoti Bryant MD, PHD COUNTER MANAGER: Mynor Fall MD ESTIMATED BLOOD LOSS: Minimal. [...] Jyoti Bryant MD, PHD ATTENDING SHANNON/Constanza JOB: [id number] DOC: [id number] [facility] 01-22-2024 Plan [...] 1939 Plan Of Care Reviewed With: patient [facility] 01-20-2024 Consult note Associated Order (s): IP CONSULT TO SURGERY - TRANSPLANT (RENAL) Images from the original note were not included. TRANSPLANT SURGERY CONSULT NOTE: Consult: 01/20/2024, 4:03 PM Learning And Development Intern: Starla Morris MD Reason for Consult: Requesting Dr Carson Bryant for AVF revision/closure given new onset high output heart failure George Styles is a 53 y.o. 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 Mcgowan fellow carbon capture power plant operator Thank you, Starla Morris MD Associated attestation - yJoti Bryant MD, PhD - 01/22/2024 10:54 AM EST Beata Bryant MD, PhD, have independently seen and examined the patient, reviewed the labs, discussed the patient with the fellow/resident and agree with the note. [facility] Work Phone: 01-20-2024 Consult note Associated Order (s): IP CONSULT TO SURGERY - TRANSPLANT (RENAL) Images from the original note were not included. TRANSPLANT SURGERY CONSULT NOTE: Consult: 01/20/2024, 4:03 PM Learning And Development Intern: Starla Morris MD Reason for Consult: Requesting Dr Carson Bryant for AVF revision/closure given new onset high output heart failure George Styles is a 53 y.o. male CURRENT HOSPITALIZATION LOS: Admit Date: 01/16/2024 [facility] Hospital LOS: 4 days [...] GUIDANCE 05/17/2022 Surgeon: Enzo Heart DO; Location: [facility] INTERVENTIONAL RADIOLOGY (VIR) LIVER TRANSPLANT, ORTHOTOPIC N/A 04/12/2020 Laterality: N/A; Surgeon: LU Palma; Location: [facility] SAME DAY SURGERY MAIN OR KIDNEY TRANSPLANT W/O KIPNUK NEPHRECTOMY N/A 04/12/2020 Laterality: N/A; Surgeon: LU Palma; Location: [facility] SAME DAY SURGERY MAIN [...] Q12H Timothy Joseph MD 100 mg at 01/20/2419 Melatonin tablet 6 mg 6 mg Oral [...] seen and staffed with Dr. Mcgowan fellow carbon capture power plant operator Thank you, Starla Morris MD Associated [...] DAY SURGERY MAIN OR KIDNEY TRANSPLANT W/O KIPNUK NEPHRECTOMY N/A 04/12/2020 Laterality: N/A; Surgeon: LU [...] (order for outpatient) Please SecureChat or Call ([phone]) for any questions. Await attending attestation for final recommendations. Hank Noel MD Division of Gastroenterology, Hepatology, and Nutrition Clinical Fellow, PGY-5 Pager: [phone] For urgent/stat calls or consults 5pm to 7am, please page the on-call GI fellow on [employer]. [facility]--> Internal Medicine--> Gastroenterology, Hepatology, & Nutrition--> 1st Call Fel Alysia For urgent/stat calls or consults 7am to 5pm during the weekend, please page the on-call GI fellow on [employer]. [facility]--> Internal Medicine--> Gastroenterology, Hepatology, & Nutrition--> All Hep & East Wknd Cons Fel Day For follow up questions regarding this patient 7am to 5pm during the weekday, contact the Hepatology consults fellow or CARLOS A on [employer]. [facility]--> Internal Medicine--> Gastroenterology, Hepatology, [...] MSc documented in this encounter [facility] 01-19-2024 Nurse Note 01/19/24 0900 Vitals [...] at rest, 95-96% when talking/moving. Paulette Cordon, SAMI [facility] 01-19-2024 Nurse Note Paged overnight coverage, Jasper Gastelum MD, via pager #[phone] Pt- George Styles. Sarah 1082. TM1. Was wondering if he can have his Melatonin order increased to 6mg. Per pt, he usually takes 8mg at home. -SAMI Duffy #[phone] Tati Charles RN [facility] 01-18-2024 Consult note Associated Order (s): IP CONSULT TO HEPATOBILIARY N OS Main Hepatology Consult WebExchange --> IM Consult Serv [facility] --> OS Main Hepatology consult service Fellow HEPATOLOGY INPATIENT CONSULT Referring Provider: Kelivn Pacheco MD, MBBS Admit Date: 01/16/2024 Reason [...] DAY SURGERY MAIN OR KIDNEY TRANSPLANT W/O KIPNUK NEPHRECTOMY N/A 04/12/2020 Laterality: N/A; Surgeon: LU Palma; Location: [facility] SAME DAY SURGERY MAIN [...] (order for outpatient) Please SecureChat or Call ([phone]) for any questions. Await attending attestation for final recommendations. Hank Noel MD Division of Gastroenterology, Hepatology, and Nutrition Clinical Fellow, PGY-5 Pager: [phone] For urgent/stat calls or consults 5pm to 7am, please page the on-call GI fellow on [employer]. [facility]--> Internal Medicine--> Gastroenterology, Hepatology, & Nutrition--> 1st Call Janae Hatfield For urgent/stat calls or consults 7am to 5pm during the weekend, please page the on-call GI fellow on [employer]. [facility]--> Internal Medicine--> Gastroenterology, Hepatology, & Nutrition--> All Hep & East Wknd Cons Fel Day For follow up questions regarding this patient 7am to 5pm during the weekday, contact the Hepatology consults fellow or CARLOS A on [employer]. [facility]--> Internal Medicine--> Gastroenterology, Hepatology, [...] tacro troughs - Fibroscan (order for outpatient) iMchael Estrada MD, MSc [facility] Work Phone: 01-16-2024 Plan of care note Internal Medicine Daily Progress Note Patient: George Styles, 1970, [id number] Physician: Arelis Mera MD, PGY3, Pager #[phone], VN3 service Assessment/Plan: George Styles is a 53 [...] day. Reports 1w GARCIA, 1 month progressive EJNSEN and abd distension. Differential includes fluid overload [...] home amlodipine 5mg CAD: non-obstructive CAD on [facility] 2018. - continue home aspirin [...] Nurse Note Mr. Styles was admitted to 10[address]. On admission to R10, from outside facility a dual RN initial assessment of skin condition was performed by Izzy Gutierrez RN and Leroy Singleton RN. Skin Assessment: Skin within defined limits:Yes Jose Score: 20 Wound Vision Sap Technical Architect images obtained: No LDA Added: No Based [...] nurses station when available. [facility] 01-16-2024 History and physical note Images from the original note were not included. Internal Medicine Admission History & Physical Patient: George Styles, 1970, [id number] Physician: Timothy Joseph MD, PGY1, Pager #[phone], TM 1 service Date of face to [...] DAY SURGERY MAIN OR KIDNEY TRANSPLANT W/O KIPNUK NEPHRECTOMY N/A 04/12/2020 Laterality: N/A; Surgeon: LU [...] itraconazole Fax results to: Dr. White - [phone] Transplant Neph - [phone] Gabapentin 400 MG capsule Sig: Take 1 [...] erythema: Skin: No jaundice or rash Neuro: fire sprinkler designer 3-7, 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 Strength grossly [...] home amlodipine 5mg CAD: non-obstructive CAD on [facility] 2018. - continue home aspirin 81mg daily Gout: continue home allopurinol 200mg daily BPH: continue home flomax 0.4mg daily Complexity. Obesity Body mass index is 32.8 kg/m . - Follow with PCP for dietary and lifestyle modifications. Any conditions listed below are present on admission unless otherwise specified. . DVT prophylaxis with lovenox Disposition: [facility] Code status is Full Staffed [...] [J90]. Transplant Physician: Morgan Harris, Erma Roe, Fideilna Pierson, Luisa Steven, Renee Rivera, Daisha Max Landscaping Manager: José Miguel Garnica All Txt: 04/13/2020 [...] results found for: CYCLOSPORIN , CYCLOSPORIN2 , [id number] , CYCLORAND No results found for: SIROLIMUS [...] request in chart. Kevin Sage MD Pager [phone] [facility] 01-16-2024 History and physical note Images from the original note were not included. Internal Medicine Admission History & Physical Patient: George Styles, 1970, [id number] Physician: Timothy Joseph MD, PGY1, Pager #[phone], TM 1 service Date of face to [...] 04/12/2020 Laterality: N/A; Surgeon: LU Palma; Location: [facility] SAME DAY SURGERY MAIN OR KIDNEY TRANSPLANT W/O KIPNUK NEPHRECTOMY N/A 04/12/2020 Laterality: N/A; Surgeon: LU Palma; Location: [facility] SAME DAY SURGERY MAIN [...] itraconazole Fax results to: Dr. White - [phone] Transplant Neph - [phone] Gabapentin 400 MG capsule Sig: Take 1 [...] erythema: Skin: No jaundice or rash Neuro: fire sprinkler designer 3-7, 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 Strength grossly [...] home amlodipine 5mg CAD: non-obstructive CAD on [facility] 2018. - continue home aspirin 81mg daily Gout: continue home allopurinol 200mg daily BPH: continue home flomax 0.4mg daily Complexity. Obesity Body mass index is 32.8 kg/m . - Follow with PCP for dietary and lifestyle modifications. Any conditions listed below are present on admission unless otherwise specified. . DVT prophylaxis with lovenox Disposition: admitted to [facility] Code status is Full Staffed [...] Erma Roe, Fidelina Pierson, Luisa Steven, Renee M El-HiDaisha barillas Landscaping Manager: José Miguel Garnica All Txt: 04/13/2020 [...] results found for: CYCLOSPORIN , CYCLOSPORIN2 , [id number] , CYCLORAND No results found for: SIROLIMUS [...] request in chart. Kevin Sage MD Pager [phone] documented in this encounter [facility] 01-12-2024 History of Present illness Narrative [...] Name: Prograf 0.2 MG Contact Info: Specialty ([place]) [phone] [facility] [phone] [facility] [phone] David [phone] Bedside Delivery ([facility]) [phone] [facility] OP RX OUTREACH ADVANCED: Call Information: Date and Time of Contact: 01/25/2024 10:23 AM Method of Contact: By Phone Contact Type: Prescriptions Contactor: [facility] OP Contactee: Patient Contact Outcome: Left message (prograf myco) Contact Info: Specialty ([place]) [phone] [facility] [phone] [facility] [phone] David [phone] Bedside Delivery ([facility]) [phone] documented in this encounter [facility] 01-12-2024 History of Present illness Narrative [...] Name: Prograf 0.2 MG Contact Info: Specialty ([place]) [phone] [facility] [phone] [facility] [phone] David [phone] Bedside Delivery ([facility]) [phone] [facility] OP RX OUTREACH ADVANCED: Call Information: Date and Time of Contact: 01/25/2024 10:23 AM Method of Contact: By Phone Contact Type: Prescriptions Contactor: [facility] OP Contactee: Patient Contact Outcome: Left message (prograf myco) Contact Info: Specialty ([place]) [phone] [facility] [phone] [facility] [phone] David [phone] Bedside Delivery ([facility]) [phone] [facility] OP RX OUTREACH ADVANCED: Call Information: Date and Time of Contact: 01/27/2024 10:19 AM Method of Contact: By Phone Contact Type: Prescriptions Contactor: [facility] OP Contactee: Patient Contact Outcome: Left message (myco prograf) Contact Info: Specialty ([place]) [phone] [facility] [phone] [facility] [phone] David [phone] Bedside Delivery ([facility]) [phone] documented in this encounter [facility] 01-12-2024 History of Present illness Narrative [...] Name: Prograf 0.2 MG Contact Info: Specialty ([place]) [phone] [facility] [phone] [facility] [phone] David [phone] Bedside Delivery ([facility]) [phone] [facility] OP RX OUTREACH ADVANCED: Call Information: Date and Time of Contact: 01/25/2024 10:23 AM Method of Contact: By Phone Contact Type: Prescriptions Contactor: [facility] OP Contactee: Patient Contact Outcome: Left message (prograf myco) Contact Info: Specialty ([place]) [phone] [facility] [phone] [facility] [phone] David [phone] Bedside Delivery ([facility]) [phone] [facility] OP RX OUTREACH ADVANCED: Call Information: Date and Time of Contact: 01/27/2024 10:19 AM Method of Contact: By Phone Contact Type: Prescriptions Contactor: [facility] OP Contactee: Patient Contact Outcome: Left message (myco prograf) Contact Info: Specialty ([place]) [phone] [facility] [phone] [facility] [phone] David [phone] Bedside Delivery ([facility]) [phone] [facility] OP RX OUTREACH ADVANCED: Call Information: Date and Time of Contact: 02/01/2024 3:22 PM Contact Type: Prescriptions Contactor: [facility] OP Contactee: Patient Contact Outcome: Left message Shipping/Pickup: Medication Name: Mycophenolate 360mg and Prograf 0.2mg Pack Contact Info: Specialty ([place]) [phone] [facility] [phone] [facility] [phone] David [phone] Bedside Delivery ([facility]) [phone] documented in this encounter [facility] 01-06-2024 History of Present illness [...] The neurologist wanted to send him to [facility] neurology but it is out of network [...] see neurologist in [facility] Immunocompromised (CMS/HCC) Hypertension (CMS/[facility]) No change in meds Check echo Relevant Orders Echocardiogram 2D complete Bilateral lower extremity edema Relevant Orders Echocardiogram 2D complete Shortness of breath Check ECHO Relevant Orders Echocardiogram 2D complete Other Visit Diagnoses 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) Atherosclerosis 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) documented in this encounter [facility] 10-06-2023 History of Present illness [...] ; Prograf 0.2 MG Contact Info: Specialty ([place]) [phone] [facility] [phone] [facility] [phone] David [phone] Bedside Delivery ([facility]) [phone] [facility] OP RX OUTREACH ADVANCED: Call Information: Date and Time of Contact: 10/23/2023 2:00 PM Method of Contact: By Phone Contact Type: Prescriptions Contactor: [facility] OP Contactee: Patient Contact Outcome: Left message and Call back later Shipping/Pickup: Medication Name: Mycophenolate 360mg and Prograf 0.2mg Contact Info: Specialty ([place]) [phone] [facility] [phone] [facility] [phone] [facility] [phone] Bedside Delivery ([facility]) [phone] [facility] [...] the oxygen during the night. pt will flower buncher or picker his oxygen from [employer], 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 This RN [...] Patient seen ambulating in the velazquez with BOAT FUELER. Patient was mildly short of breath on [...] & HR 114. Messaged Mainor Loomis, via [employer] secure chat, Temp 100.8. His tylenol order [...] short period of time. 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 Episode of [...] Critical Care Medicine Message Mainor Loomis, via [employer] secure chat, Good evening, just an FYI, [...] short period of time. 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 This morning, [...] [address] Loera here also (supervisor webbing) Dr. Diaz aware of pt's increased oxygen [...] regular sleep/rest pattern promoted Sent a secure AxxanaIS chat to Rosi LUZ concerning patient's temp [...] PGY-2 Mr. Styles was admitted to [address] [place]. On admission to R10, from home a [...] station when available. documented in this encounter [facility] 09-11-2023 History of Present illness Narrative Provided follow-up emotional and spiritual support. Patient shared about rosemary of discharge and looking forward to seeing family Nurse Ob provided: - Supportive presence - Active listening - Validation of feelings/emotions Patient encouraged to request a tube building machine operator as needed. Chaplains are available in-house 24 hours a day and 7 days a week. For urgent matters in [facility], please page [phone]. If the request is not urgent, please enter a consult. Consults are responded to within 24 hours. Senior Staff Nurse Ob Angie Singh Mdiv, [facility] Kirk [phone] [email or web address] 22/06 On-call Norton: [phone] 22/06 Pager ,BSLydia, and Brock Debbie David Pager [phone] 09/11/23 9589 Clinical Encounter Type Visited With Patient Visit Type Follow-up Pastoral Time Spent 15 min Referral Other (See Comment) (rounding) Spiritual Assessment Spiritual Observation Spirituality helpful Emotional Observation Coping well Hope Observation Specific hope focus Support Observation By Family Interventions Provided Active listening;Supportive presence Facilitated Verbalization of feelings Explored Expectations Stock Control Supervisor Education Stock Control Supervisor Service Available Yes Educated Patient Plan of Care Continue Visiting PRN Images from the original note were not included. [facility] Note: Non-Verbal Med Rec [facility] received the following discharge prescription(s): Total cost is $0. I have reviewed the Discharge Rx Reconciliation Report. The discharge prescription(s) will be delivered to the patient on 09/11/2023. Dimitrios Gurrola RP,PharmD Specialty ([place]) [phone] [facility] [phone] [facility] Bedside Delivery [phone] [facility] [phone] [facility] Bedside Delivery [phone] [place] [phone] [facility] Bedside Delivery [phone] [place] [phone] [place] [phone] Internal Medicine Daily Progress Note Patient: George Styles, 1970, [id number] Physician: Evan Kelly MD, PGY-1, TM1 service Subjective/Interval History: Patient continues to require oxygen overnight for desaturations. With insurance limitations, only accepting agency to provide home oxygen backed out. After calling them to discuss, Lynn stated she would be willing to have patient drive to their facility to flower buncher or picker supplies, however they close at 5pm. 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 His zuni kidney disease was noted to be presumed [...] losartan 50mg BID CAD: non-obstructive CAD on [facility] 2018. - continue home aspirin [...] 5.05 (H) 11/19/2018 Kevin Sage MD, SERA Civil Engineer In Training of Clinical Medicine [facility] Images from the original note were not included. Final Discharge Planning and Transportation Final Discharge Planning Discharge Disposition: Home Services at Discharge: Outpatient clinical services (ie: lab draws, transfusions, injectables) (Home Oxygen by [employer]) Selected Continued Care - Admitted Since 08/28/2023 Durable Medical Equipment Coordination complete. Service Provider Selected Services Address Phone Fax Patient Preferred [employer] Durable Medical Equipment [address] [id number] Internal Comment last updated by Lora Lawrence RN 09/10/2023 1334 Correct contact information: [employer] [address] [place] [address] [place] [address] faucet polisher- you do not need to call at discharge, I already notified the company. Addendum 1520 [employer] notified this CM they are out of patient's insurance area and will not be able to service this patient at time of discharge. Provider notified. Addendum 1558 Dr Kelly called [facility] spoke to Lynn and she said they are willing to accept patient if the patient would drive to the [place] office and flower buncher or picker the supplies. Patient is willing to [...] Lora Colón RN, MSN, CCM, CMCN Clinical Investigator Narcotics- R[facility] Transplant #[phone] Department of Pharmacy Transplant Note Patient: George [...] dose adjustment Name: Matt Kramer RPh,Frankie Phone: [phone] Date/Time: 09/10/2023 11:33 AM This CM sent referral via [employer] for O2 concentrator to 4 agencies Start date today Timer [facility] [employer] Addendum 1332 One accepting company reserved in [employer] [address] [place] [address] [place] [address] Lora Colón RN, MSN, CCM, CMCN Clinical Investigator Narcotics- [facility] Transplant #[phone] NUTRITION FOLLOW-UP Nutrition Plan of Care: 1. Continue current diet order. 2. No oral supplements warranted at this time. 3. Monitor for significant weight changes. Monitor GI, skin integrity. 4. Monitor and encourage po intakes with goal of average po being 75-100%. 5. lead manufacturing engineering tech to follow. ___ Met with patient today at bedside wearing mask. Current Diet Orders Procedures DIET REGULAR Standing Status: Standing Number of Occurrences: 1 Appetite: good Per doc flow sheet: Date Breakfast Lunch Dinner 09/08 -% 75% -% 09/07 100% 75% 100% 09/06 100% 100% 100% 09/05 100% 100% -% / -% -% -% Po average over past [...] time. Will continue to monitor. RHIANNON BirminghamR Pager:[phone] Transplant Infectious Disease (Team 3) Progress Note [...] sign off. Please Epic message or page [phone] with questions. 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 His zuni kidney disease was noted to be presumed [...] losartan 50mg BID CAD: non-obstructive CAD on [facility] 2018. - continue home aspirin [...] to follow. Please Epic message or page [phone] with questions. Evan White, DO Transplant Infectious Diseases Internal Medicine Daily Progress Note Patient: George Styles, 1970, [id number] Physician: Laurel Serrano MD, PhD, PGY-3, TM1 service Subjective/Interval History: No acute events overnight. Patient feeling well this morning, noting improved shortness of breath. Only feeling shortness of breath when up and moving. Has been needing O2 at night, but denies history of DARLENE or snoring. 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 His zuni kidney disease was noted to be presumed [...] losartan 50mg BID CAD: non-obstructive CAD on [facility] 2018. 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 His zuni kidney disease was noted to be presumed [...] losartan 50mg BID CAD: non-obstructive CAD on [facility] 2018. - continue home aspirin [...] 5.05 (H) 11/19/2018 Kevin Sage MD, SERA Civil Engineer In Training of Clinical Medicine [facility] Transplant Infectious Disease (Team [...] to follow. Please Epic message or page [phone] with questions. Ann Marie Haskins MD PGY-4, [...] he continues to improve. Please message via [employer] secure chat or page with any questions or concerns. Evan White DO Civil Engineer In Training Division of Infectious Disease Transplant Infectious Disease [...] to follow. Please Epic message or page [phone] with questions. Evan White DO Transplant Infectious Diseases Images from the original note were not included. Pulmonary/Critical Care Medicine Daily Progress Note Reason for Consultation: bronch for infectious workup Requesting Physician: Dr. Sage CURRENT HOSPITALIZATION: Admit Date: 08/28/2023 [facility] Hospital LOS: 9 days [...] and interpreted reviewed the radiographic data [facility] 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 His zuni kidney disease was noted to be presumed [...] losartan 50mg BID CAD: non-obstructive CAD on [facility] 2018. - continue home aspirin [...] 5.05 (H) 11/19/2018 Kevin Sage MD, MADISONN Civil Engineer In Training of Clinical Medicine [facility] Images from the original note were not included. Pulmonary/Critical Care Medicine Daily Progress Note Reason for Consultation: bronch for infectious workup Requesting Physician: Dr. Sage CURRENT HOSPITALIZATION: Admit Date: 08/28/2023 [facility] Hospital LOS: 8 days [...] and interpreted reviewed the radiographic data in [employer]. Acute Occupational Therapy Evaluation Prior to Admission [...] Assessment: Transfer Assessment: Sit to Stand Transfer [place] Level: Sit->Stand: independent Skilled Intervention/Details: Sit->Stand: x1 from EOB, x1 from toilet Stand to Sit Transfer [place] Level: Stand->Sit: independent Skilled Intervention/Details: Stand->Sit: x1 to toilet, x1 to EOB Functional Mobility: Functional Mobility [place] Level: Functional Mobility/Gait: independent Ambulation Distance (Feet): 20 Skilled Intervention/Details - Functional Mobility/Gait: pt performed functional mobility to/from RR w/ no overt LOB Outcome Score(s): CURRENT [facility] Daily Activity Inpatient Short Form Putting on/Taking Off Lower Body Clothin - A Little Assistance Bathin - A Little Assistance Toiletin - A Little Assistance Putting on/Taking Off Upper Body Clothin - No Assistance Groomin - No Assistance Eatin - No Assistance CURRENT [facility] Activity Raw Score: 21 CURRENT [facility] Activity Functional Limitation/Modifier: 32.79% Currently [...] Acute Physical Therapy Evaluation Prior to Admission [facility] score(s): PRIOR LEVEL AM-PAC Mobility [...] Intact Mobility Assessment: Supine to Sit Mobility [place] Level: Supine->Sit: modified independence Bed Features/Set-up: Supine->Sit: Head of bed elevated Sit to Supine Mobility [place] Level: Sit->Supine: not tested Balance: Sitting Balance [...] environment. Transfer Assessment: Sit to Stand Transfer [place] Level: Sit->Stand: independent Skilled Intervention/Details: Sit->Stand: From EOB x 2 without difficulty. Stand to Sit Transfer [place] Level: Stand->Sit: independent Assistive Device: Stand->Sit: armed chair Skilled Rationale: Verbal cues, Positioning Gait/Functional Mobility: Gait Assessment [place] Level: Gait: stand-by assist Assistive Device: Gait: rollator Ambulation Distance (Feet): 400 Gait Deviations Identified: decreased grace, decreased gait speed Gait Skilled Rationale: verbal, upright posture, increase step length, increase foot clearance Skilled Intervention/Details - Gait: Reasonable foot clearnce without loss of balance but endorsing dyspnea as 6-7/10. 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 His zuni kidney disease was noted to be presumed [...] losartan 50mg BID CAD: non-obstructive CAD on [facility] 2018. - continue home aspirin [...] 5.05 (H) 11/19/2018 Kevin Sage MD, SERA Civil Engineer In Training of Clinical Medicine [facility] Transplant Infectious Disease (Team [...] to follow. Please Epic message or page [phone] with questions. Evan White DO Transplant Infectious Diseases Images from the original note were not included. 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 His zuni kidney disease was noted to be presumed [...] losartan 50mg BID CAD: non-obstructive CAD on [facility] 2018. - continue home aspirin [...] P 450 system Kevin Sage MD, SERA Civil Engineer In Training of Clinical Medicine [facility] ERT Note: ERT called [...] or worsening: - CXR - NRB -> VINCEF -> ELLEN Serrano MD, PhD Internal Medicine [...] CXR - Consider saline neb - NRB-> VINCEF-> ELLEN Serrano MD, PhD Internal Medicine and [...] to follow. Please Epic message or page [phone] with questions. 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 His zuni kidney disease was noted to be presumed [...] 2/2 renal function CAD: non-obstructive CAD on [facility] 2018. 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 His zuni kidney disease was noted to be presumed [...] 2/2 renal function CAD: non-obstructive CAD on [facility] 2018. - continue home aspirin [...] CREATSERUM 5.05 (H) 11/19/2018 Kevin Sage MD, AMDISONN Civil Engineer In Training of Clinical Medicine [facility] Progression of Care Note [...] Lora Colón RN, MSN, CCM, CMCN Clinical Investigator Narcotics- [facility] Transplant #[phone] Made introductory visit with patient. Provided emotional and spiritual support. Patient shared about: - Source of Rosemary: Camping/Fishing/Family - Spirituality/Sabianism Affiliation: raised [place] - Family Support/history - Experience with illness/hospital course - Hopes for healing/future Nurse Ob provided: - Supportive presence - Active listening - Validation of feelings/emotions - Pledged prayer Patient encouraged to request a tube building machine operator as needed. Chaplains are available in-house 24 hours a day and 7 days a week. For urgent matters in [facility], please page [phone]. If the request is not urgent, please enter a consult. Consults are responded to within 24 hours. Senior Staff Nurse Ob Angie Singh Mdiv, BENJY Norton [phone] [email or web address] 22/06 On-call Norton: [phone] 22/06 Pager ,BS, and Brock Maciel Pager [phone] 09/02/23 111 Clinical Encounter Type Visited With Patient Visit Type Introduction Pastoral Time Spent 15 min Referral Other (See Comment) (rounding) Spiritual Assessment Spiritual Observation Spirituality helpful Emotional Observation Coping well Hope Observation Specific hope focus Support Observation By Family Interventions Provided Active listening;Supportive presence Facilitated Verbalization of feelings Explored Expectations Stock Control Supervisor Education Stock Control Supervisor Service Available Yes Educated Patient Outcomes Patient Outcomes Reduced distress Plan of Care Continue Visiting PRN NUTRITION RISK SCREENING NOTE Nutrition Plan of Care: 1. Continue current diet order. 2. No oral supplements warranted at this time. 3. Monitor for significant weight changes. Monitor GI and skin integrity. 4. Monitor and encourage po intakes with goal of average po being 100%. 5. lead manufacturing engineering tech to follow. George Styles is a 53 y.o. 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 His zuni kidney disease was noted to be presumed hepatorenal syndrome. His post-transplant course was noteworthy for nephrostomy tube (05/17/2022-09/10/2022) due to concern for ureteral stone. He presents as a direct admission for fever, cough, for infectious workup. Pt unavailable and information obtained via chart review Asset Protection Representative Screening Pt's appetite is good. Pt with [...] with meds Food Allergies reviewed:Shellfish Cultural or Sabianism Restrictions/Preferences: None GI: Last Bowel Movement: 09/01/23 [...] Will continue to monitor. 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 His zuni kidney disease was noted to be presumed [...] 2/2 renal function CAD: non-obstructive CAD on [facility] 2018. - continue home aspirin [...] as outlined above. Kevin Sage MD Pager [phone] Summary: Pharmacy Med Rec Department of Pharmacy [...] Provider: Zuly Bruno NP [facility] Other Comments: Patient reported his Last Home Dose of mycophenolate & tacrolimus was on 08/28/23 at 0900. Patient reported he was taking Bactrim and benzonatate for fevers and a cough he was having. Please feel free to contact me with any further questions. Name: Heidy Chatman Phone #: [phone] Date/Time: 09/01/2023 2:01 PM Time Spent: 15 minutes Associated attestation - Matt Kramer RPh,Frankie - 09/01/2023 2:28 PM EDT Department of Pharmacy Admission Medication Reconciliation Note Patient: George Styles Room/Bed: 1062/A I have reviewed the home medication list with the Real Time Analyst. All changes to the home medication list have been updated in IHIS. Updated SOUR[facility]ING INTERN Med List: Prior to Admission Medications Prescriptions [...] questions. Name: Matt Kramer RPh,PharmD Phone #: [phone] Date/Time: 09/01/2023 2:28 PM Transplant Infectious Disease [...] crypto antigen, EBV PCR -follow pending histo, [id number] labs These recommendations were discussed with the primary team. Transplant ID (Team 3) will continue to follow. Please Epic message or page [phone] with questions. 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 His zuni kidney disease was noted to be presumed [...] 2/2 renal function CAD: non-obstructive CAD on [facility] 2018. - continue home aspirin 81mg daily, atorvastatin 20mg daily Gout: continue home allopurinol 200mg daily BPH: continue home flomax 0.4mg daily DVT PPX: SQH Code Status: Full Code Disposition: Pending clinical course. Anticipate eventual discharge home. Discussed with team and attending, Kevin Sage MD, on rounds. Signed, Evan Kelly MD Attending Physician Addendum I saw and personally examined Mr. Stylse with the renal team. I discussed the [...] 5.05 (H) 11/19/2018 Kevin Sage MD, SERA Civil Engineer In Training of Clinical Medicine [facility] Discharge Planning Patient Assessment [...] Yes Name and Contact information: Gian Jensen ([phone]) Reviewed and Updated in Demographics? : Yes Outpatient Providers Does patient have a primary care physician? : Yes When was the patient's last PCP visit?: > 30 days Does the patient follow any specialists?: No Reviewed and updated Care Team?: Yes Patient Care Team: Zuly Bruno CNP as PCP - General Environment/Caregivers Is the patient from a facility or skilled nursing?: No Patient lives with: Alone Living Environment: [...] patient on Anticoagulation? : No [id number] [place] [address] - [address] [place] [id number] Driver Sales Does the patient or financial representative express financial concerns? : No Employed?: [...] Plan 1. Identified self and role as Investigator Narcotics. 2. Confirmed and updated demographics and treatment team. 3. Investigator Narcotics will continue to follow with medical team/pt for any other additional discharge needs. Kasandra DON RN [facility] [phone] *Please note I am float CM and work Thursday and Thursday every other week. Please call [phone] for assist in my absence. 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 His zuni kidney disease was noted to be presumed [...] 2/2 renal function CAD: non-obstructive CAD on [facility] 2018. - continue home aspirin 81mg daily, atorvastatin 20mg daily Gout: continue home allopurinol 200mg daily BPH: continue home flomax 0.4mg daily DVT PPX: SQH Code Status: Full Code Disposition: Pending clinical course. Anticipate eventual discharge home. Discussed with team and attending, Kevni Sage MD, on rounds. 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 - continue home aspirin 81mg daily, atorvastatin 20mg daily Gout: continue home allopurinol 200mg daily BPH: continue home flomax 0.4mg daily DVT PPX: SQH Code Status: Full Code Disposition: Pending clinical course. Anticipate eventual discharge home. Discussed with team and attending, Kevin Sage MD, on rounds. Signed, Laurel Serrano MD, PhD documented in this encounter [facility] 09-10-2023 Hospital Discharge instructions Laurel [...] a sleep doctor. You will need to flower buncher or picker the oxygen concentrator when you leave [...] foods. documented in this encounter [facility] 09-01-2023 Consult note Associated Order (s): IP CONSULT TO PULMONOLOGY Pulmonary Medicine Inpatient Consultation Reason for Consultation: bronch for infectious workup Requesting Physician: Dr. Sage Pulmonary Attending Physician: Dr. Diaz CURRENT HOSPITALIZATION: Admit Date: 08/28/2023 [facility] Hospital LOS: 4 days [...] short period of time. 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 Other histories as documented in the [...] for more than one month. ASSESSMENT George tSyles is a 53 y.o. male with ETOH [...] contacts. He traveled to [place] to family [facility] in May. REVIEW OF SYSTEMS A [...] GUIDANCE 05/17/2022 Surgeon: Enzo Heart DO; Location: [facility] INTERVENTIONAL RADIOLOGY (VIR) LIVER TRANSPLANT, ORTHOTOPIC N/A 04/12/2020 Laterality: N/A; Surgeon: LU Palma; Location: [facility] SAME DAY SURGERY MAIN OR KIDNEY TRANSPLANT W/O KIPNUK NEPHRECTOMY N/A 04/12/2020 Laterality: N/A; Surgeon: LU Palma; Location: [facility] SAME DAY SURGERY MAIN [...] Alamo MD I can be reached via [employer] secure message (preferred) or Pager #[phone] documented in this encounter [facility] 08-28-2023 History and physical note Images from the original note were not included. Internal Medicine Admission History & Physical Patient: George Styles, 1970, [id number] Physician: Aric Turner MD, PGY1, Pager #[phone], TM service Date of face to face [...] So he went to see the transplant loan processor. He was found elevated Cr and asked [...] Appetite is ok now. Urine is about 2820-0228 ml every day. 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 - continue aspirin 81mg [...] Pierson, Luisa Steven, Renee Rivera, Daisha Max Landscaping Manager: José Miguel Garnica All Txt: 04/13/2020 [...] results found for: CYCLOSPORIN , CYCLOSPORIN2 , [id number] , CYCLORAND No results found for: SIROLIMUS [...] Rest as above. Kevin Sage MD Pager [phone] documented in this encounter [facility] 08-28-2023 History of Present illness Narrative Images from the original note were not included. 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 Landscaping Manager: Anayeli Burt Date of Liver Transplant: 04/13/2020 (Kidney), 04/13/2020 (Liver) 3 years 4 months post Liver/Kidney Transplant Primary Disease: Hypertensive Nephrosclerosis Transplant Patient Care: Erma Roe/ Daisha Max Primary Care physician: [...] and faMOTIdine === None Specified Preferred Lab: [facility] Change in lab frequency / [...] every 12 hours. ADDITIONAL INFORMATION: None Specified, [id number] [place] [address] - [address] [facility] [address] [facility] [address] [facility] [address] [facility] [address] [id number] [place] [address] [address] [facility] [address] [facility] [address] [facility] [address], [place] [address] [facility] [address] ROS and SCREEN: Chest Pain: negative Cough: [...] PHYSICIAN: I saw George Styles at the [facility] on 08/28/2023. Patient is a 53 y.o. 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 Steve Munoz MD platform engineer Division of Nephrology [facility] [...] Required: No Mailing/Pickup Date: 08/25/2023 Shipping Address: [address] [place] [address] [address] Contact Info: Specialty ([place]) [phone] Jakob [phone] [place] [phone] [place] [phone] Bedside Delivery ([facility]) [phone] documented in this encounter [facility] 06-12-2023 History of Present illness Narrative Images from the original note were not included. George Styles is a 53 y.o. 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 No longer follows with a local loan processor. History of Present Illness: Since George was [...] and lab results. Rebeca Gutierrez MSN, RN, OUTREACH ASSOCIATE-BC, CCTN Certified Nurse Practitioner [facility] [address] [facility] [address] [facility]23 Instructions JEANNA Hess - 06/12/2023 3:00 PM EDT No change in immunosuppression. documented in this encounter [facility] 06-10-2023 History of Present illness Narrative [facility]RE[facility]ANCED: Call Information: Method of Contact: By Phone Contact Type: Prescriptions Contactor: [facility] OP Contactee: Patient Contact Outcome: Left message Shipping/Pickup: Medication Name: Mycophenolate sod 180 mg Contact Info: Specialty ([place]) [phone] [facility] [phone] [facility] [phone] [place] [phone] Bedside Delivery ([facility]) [phone] [facility]: Call Information: Date and Time of Contact: 06/12/2023 9:43 AM Method of Contact: By Phone Contact Type: Prescriptions Contactor: [facility] OP Contactee: Patient Contact Outcome: Left message and Follow-up Shipping/Pickup: Medicare B Refill?: No Medication Name: Myco 180 Contact Info: Specialty ([place]) [phone] [facility] [phone] [facility] [phone] David [phone] Bedside Delivery ([facility]) [phone] [facility]REACH [facility]ANCED: Call Information: Date and Time of Contact: 06/12/2023 10:08 AM Method of Contact: By Phone Contact Type: Prescriptions Contactor: [facility] OP Contactee: Patient Shipping/Pickup: Medicare B Refill?: No Medication Name: Mycophenolate 180mg DR Delivery Method: Air Delivery Location: Home Signature Required: No Mailing/Pickup Date: 06/17/2023 Shipping Address: [address] [place] [address] Contact Info: Specialty ([place]) [phone] [facility] [phone] [facility] [phone] [place] [phone] Bedside Delivery ([facility]) [phone] documented in this encounter [facility] 03-12-2023 History of [...] No Mailing/Pickup Date: 03/16/2023 Shipping Address: [address] [place] [address] Contact Info: Specialty ([place]) [phone] [facility] [phone] [facility] [phone] David [phone] Bedside Delivery ([facility]) [phone] [facility] OUTREACH ADVANCED: Call Information: [...] Required: No Mailing/Pickup Date: 03/19/2023 Shipping Address: [address] [place] [address] [address] Contact Info: Specialty ([place]) [phone] [facility] [phone] [facility] [phone] David [phone] Bedside Delivery ([facility]) [phone] documented in this encounter [facility] 03-10-2023 History of Present illness Narrative [facility]REACH [facility]ED: Call Information: Date and Time of Contact: 03/10/2023 12:00 PM Method of Contact: By Phone Contact Type: Prescriptions Contactor: [facility] OP Contactee: Patient Contact Outcome: Left message and Call back later Shipping/Pickup: Medication Name: Mycophenolate ; Tacrolimus Contact Info: Specialty ([place]) [phone] [facility] [phone] [facility] [phone] David [phone] Bedside Delivery ([facility]) [phone] documented in this encounter [facility] 03-10-2023 History of Present illness Narrative [facility]REACH [facility]ANCED: Call Information: Date and Time of Contact: 03/10/2023 12:00 PM Method of Contact: By Phone Contact Type: Prescriptions Contactor: [facility] OP Contactee: Patient Contact Outcome: Left message and Call back later Shipping/Pickup: Medication Name: Mycophenolate ; Tacrolimus Contact Info: Specialty ([place]) [phone] Jakob [phone] [facility] [phone] David [phone] Bedside Delivery ([facility]) [phone] [facility]REACH [facility]ANCED: Call Information: Date and Time of Contact: 03/12/2023 10:32 AM Method of Contact: By Phone Contact Type: Prescriptions Contactor: [facility] OP Contactee: Patient Contact Outcome: Left message Shipping/Pickup: Medication Name: Mycophenolate sodium (MYFORTIC) 180 MG Tab tacrolimus 0.5 mg Contact Info: Specialty ([place]) [phone] Jakob [phone] [facility] [phone] David [phone] Bedside Delivery ([facility]) [phone] documented in this encounter [facility] [...] PERCUTANEOUS W/ IMAGE GUIDANCE 05/17/2022 Surgeon: Enzo Herat DO; Location: [facility] INTERVENTIONAL RADIOLOGY (VIR) LIVER TRANSPLANT, ORTHOTOPIC N/A 04/12/2020 Laterality: N/A; Surgeon: LU Palma; Location: [facility] SAME DAY SURGERY MAIN OR KIDNEY TRANSPLANT W/O KIPNUK NEPHRECTOMY N/A 04/12/2020 Laterality: N/A; Surgeon: LU Palma; Location: [facility] SAME DAY SURGERY MAIN [...] 0.3 12/29/2022 Explant Pathology Pathologic Diagnosis A. Platinum liver, orthotopic liver transplant resection (1458 gram): [...] A/P with IV contrast (06/27/2022): 1. Both zuni kidneys are atrophic with improvement in right-sided [...] frequent nighttime urination, etc). Daisha Max DO Civil Engineer In Training Gastroenterology, Hepatology and Nutrition [facility] Pager: [phone] Images from the original note were not included. 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 Landscaping Manager: Anayeli Burt Date of Liver Transplant: 04/13/2020 (Kidney), 04/13/2020 (Liver) 2 years, 8 months post Liver/Kidney Transplant Primary Disease: Hypertensive Nephrosclerosis Transplant Patient Care: Steve Munoz Primary Care physician: Zuly Bruno [...] Sched? yes removed on May 23. Hepatitis C+/KUMRA- donor? no Hepatitis C+/KUMAR+ donor? no ======== IMMUNOSUPPRESSION AND LABS: Current Immunosuppressive Medication(s) Immunosuppressive Agents Mycophenolate sodium (MYFORTIC) [address] Take 2 tablets by mouth every 12 hours. Tacrolimus (PROGRAF) 0.5 MG capsule Take 1 capsule by mouth every 12 hours. I/S levels: No results found for: CYCLOSPORIN, CYCLOSPORIN2, [id number], CYCLORAND No components found for: CYCLOSPORINE, 2HR [...] hours. ADDITIONAL INFORMATION: None Specified [id number] [place] [address] - [address] [facility] [address] [facility] [address] [facility] [address] [facility] [address] [id number] [place] [address] [address] [facility] [address] [facility] [address] [facility] [address] [place], [place] [address] [facility] [address] ROS and SCREEN: Chest Pain: negative Cough: [...] and no hydronephrosis. Some reflux up the zuni right ureter but good drainage of both transplant and zuni ureter to the bladder. Nephrostomy tube was [...] transplant, orthotopic (N/A, 04/12/2020); kidney transplant w/o zuni nephrectomy (N/A, 04/12/2020); and placement nephrostomy catheter [...] Negative for , diarrhea, constipation Genitourinary: See [place] Neurological: Negative for headaches. Lymph/Heme: Negative for [...] x 4, Normal strength. No edema. Skin: [place], warm, and dry. There are no rashes [...] and no hydronephrosis. Some reflux up the zuni right ureter but good drainage of both transplant and zuni ureter to the bladder. Nephrostomy tube was [...] off the table and escorted to medical reception specialist where they made a follow up. Associated [...] to have transplant ureter with anastomosis to zuni right ureter. Nephrostogram without filling defects and no hydronephrosis. Some reflux up the zuni right ureter but good drainage of both transplant and zuni ureter to the bladder. Nephrostomy tube was removed without issue. Patient does have some sensation of incomplete bladder emptying and occasional sensation in his right flank. PVR today was 33cc. Will re-evaluate urinary symptoms at next appointment. --continue Flomax --RTC in one month flow flow/PVR/IPSS Patient to call with any additional questions or concerns. Ryan Yepez MD 07/07/22 documented in this encounter [facility] 06-27-2022 History of Present illness Narrative UROLOGY CLINIC NOTE Reason for Appointment: possible transplant ureteral obstruction HPI: Patient is a 52 yo male with PMH that includes ESRD s/p DDRT in March 2020, CAD, cirrhosis and HTN. He was evaluated as an inpatient on 6/16 for flank and FAYE. Urine lytes initially [...] transplant, orthotopic (N/A, 04/12/2020); kidney transplant w/o zuni nephrectomy (N/A, 04/12/2020); and placement nephrostomy catheter [...] Negative for , diarrhea, constipation Genitourinary: See [place] Neurological: Negative for headaches. Lymph/Heme: Negative for [...] x 4, Normal strength. No edema. Skin: [place], warm, and dry. There are no rashes [...] yo male with a DDRT to the [facility] in 2019. Nephrostomy tube placed [...] mass or enlargement. KIDNEYS: Marked atrophy of zuni kidneys. Transplant right pelvic kidney with percutaneous [...] by: MÓNICA JIMENEZ Date: 2022-06-18 13:53 [facility] 06-12-2022 Instructions Anayeli Christianson RN - 06/12/2022 3:21 PM EDT Do not take apart/disrupt nephrostomy tube system. Call Interventional Radiology and/or on-call transplant nurse [phone] for instruction if need to flush (clot or decreased flow). Take cipro 500mg, one tablet, twice per day for 14 days documented in this encounter [facility] 06-12-2022 History of Present illness Narrative Images from the original note were not included. 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 Landscaping Manager: Anayeli Burt Date of Liver Transplant: 04/13/2020 (Kidney), 04/13/2020 (Liver) 2 year, 1 months post Liver/Kidney Transplant Primary Disease: Hypertensive Nephrosclerosis Transplant Patient Care: Steve Munoz Primary Care physician: Zuly Bruno [...] Labs needed in clinic today? COORDINATOR NOTES: [place] 05/20/2022 Problem list: severe obstructive FAYE of [...] medical transport for appointment: no Did front load trash truck driver confirm current address and insurance information is [...] LAB AND PHARMACY: None Specified [facility] [place] [address] - [address] [facility] [address] [facility] [address] [facility] [address] [facility] [address] [id number] [place] [address] [address] [facility] [address] [facility] [address] [facility] [address], [place] [address] [facility] [address] ROS and SCREEN: Chest Pain: negative Cough: negative SOB: negative Abd Pain: negative Nausea: positive Vomiting: negative Diarrhea: negative Constipation: negative Dysuria: positive Edema: negative Tremors: negative Headaches: negative Wound issues: negative Pt has neph tube w clear yellow urine. States he had a small clot that he dislodged QUESTIONS OR CONCERNS TO ADDRESS WITH PHYSICIAN: I saw George Styles at the [facility] on 06/12/2022. Patient is a 52 y.o. 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 Steve Munoz MD platform engineer Division of Nephrology [facility] documented in this encounter [facility] 06-04-2022 Instructions TATI GROVE - 06/04/2022 11:04 AM EDT Thank you for joining us for your neph tube follow up. We recommend routine exchange every 8-10 weeks. Please reach out at [phone] when it is time to set your [...] provide teaching before his discharge Leon RN #[id number] Leon Cook RN Afternoon assessment completed at [...] Interdisciplinary Rounds/Family Conf Outcome: Ongoing Discussed with [facility] re: possible urine culture performed at their facility. However, based on urinalysis completed at that time, which was only notable for hematuria, culture was not performed and sample no longer feasible for culture. Liam Julian MD Internal Medicine/Pediatrics, PGY-3 2003: AxxanaIS message sent to Dr Justyn Wen, regarding patient passing a small kidney stone, about the size of pea. MD notified. Stone left in strainer in pt bathroom. 0500: AxxanaIS message sent to Dr Justyn Wen, regarding [...] becomes hyponatremic, NS should instead be used. AxxanaIS chat sent to Dr Tray Quintana, regarding [...] with questions. Evan Byrd MD Urology, PGY-2 #[id number] I certify that this patient requires inpatient [...] provide teaching before his discharge Leon RN #[id number] Leon Cook RN [facility] [...] is $0. Yanira Her RPh,PharmD Specialty ([place]) [phone] Jakob [phone] [facility] [phone] David [phone] [place] [phone] Bedside Delivery ([facility]) [phone] Attending I saw George Styles at the [facility] on 05/19/2022. I saw and [...] Daily Progress Note Patient: George Styles, 1970, [id number] Physician: Liam Julian MD, PGY-3, Pager #[phone], [id number] Subjective/Interval History: No acute events overnight. Passed stone this morning, will send to lab for analysis. Overall reporting improvement in abdominal pain. Objective: Vitals: 05/19/22399 BP: 174/77 Pulse: 62 Resp: 16 Temp: [...] Saldana MD Division of Hospital Medicine Pager [phone] Attending I saw George Styles at the [facility] on 05/18/2022. I saw and [...] Daily Progress Note Patient: George Styles, 1970, [id number] Physician: Nishant Gamez MD, PGY2, Pager #[phone], [id number] Subjective/Interval History: Nephrostomy tube placed yesterday with [...] to have stablized for this to be financial representative. Daya ([place]) Jeff Saldana MD Division of Hospital Medicine Pager [phone] Internal Medicine Daily Progress Note Patient: George Styles, 1970, [id number] Physician: Nishant Gamez MD, PGY2, Pager #[phone], [id number] Subjective/Interval History: Worsening creatinine this morning with [...] MD (Peggy) Division of Hospital Medicine Pager [phone] Attending I saw George Styles at the [facility] on 05/17/2022. I saw and [...] of chart and discussion with treatment team, Investigator Narcotics has not identified needs at this time. [...] follow. Introduced self and role of the tube building machine operator to patient. Provided emotional and spiritual support and the patient responded by sharing their experience and discussed the following: - Spirituality/Sabianism Affiliation: As a kid attended [employer] roman catholic but not a strong identity now - Family support - pt's brothers live close by Nurse Ob provided: - Supportive presence - Active listening - Validation of feelings/emotions Patient encouraged to request a tube building machine operator as needed. Chaplains are available in-house 24 hours a day and 7 days a week. For urgent matters in [facility], please page [phone]. If the request is not urgent, please enter a consult. Consults are responded to within 24 hours. Angie Singh Mdiv, [facility] Burn Unit and Transplant [place] [address] Nurse Ob [facility] Nurse Ob Kirk [phone] [email or web address] 22/06 [facility] Pager [phone] 22/06 Pager ,[facility], and [place] 1500 22/06 David Pager [phone] 05/16/22 1129 Clinical Encounter Type Visited With Patient Visit Type Introduction Pastoral Time Spent 15 min Referral Other (See Comment) (Rounding) Spiritual Assessment Spiritual Observation Spirituality helpful;Identifies as (see comment) (Alevism) Emotional Observation Coping well Hope Observation Hopeful and accepting Support Observation By Family Interventions Provided Active listening;Supportive presence Facilitated Verbalization of feelings;Sharing of life story;Identifying support system Explored Expectations Stock Control Supervisor Education Stock Control Supervisor Service Available Yes Educated Patient Outcomes Patient Outcomes Articulated purpose/meaning Plan of Care Continue Visiting PRN Internal Medicine Daily Progress Note Patient: George Styles, 1970, [id number] Physician: Nishant Gamez MD, PGY2, Pager #[phone], [id number] Subjective/Interval History: Overall feeling okay this morning. 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 [...] Supervision Transfer Assessment: Sit to Stand Transfer [place] Level: Sit->Stand: independent Skilled Intervention/Details: Sit->Stand: x1 from EOB Stand to Sit Transfer [place] Level: Stand->Sit: supervision Assistive Device: Stand->Sit: armed chair Skilled Rationale: Controlled descent for sitting, Verbal cues Gait/Functional Mobility: Gait Assessment [place] Level: Gait: supervision Assistive Device: Gait: gait belt Gait Distance (feet): 200 Gait Deviations Identified: decreased grace, decreased step length, decreased stride length Gait Skilled Rationale: verbal, upright posture Skilled Intervention/Details - Gait: Pt with steady gait without LOB or complaints of SOB. Stairs: Stairs Assessment [place] Level: Stair Negotiation: stand-by assist Assistive Device: Stair Negotiation: gait belt, left rail (ascending) Number of stairs: 9 Stairs Skilled Rationale: reciprocal pattern Outcome Score(s): CURRENT [facility] Basic Mobility Inpatient Short Form [...] railin - A Little Assistance CURRENT [facility] Mobility Raw Score: 22 CURRENT [facility] Mobility Functional Limitation/Modifier: 20.91% Currently [...] reported no concerns with discharging home with [place] support. 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 IADL History IADLs: independent Primary Language: Belgian Home Management Skills: independent Meal Prep Responsibility: [...] Assessment: Transfer Assessment: Sit to Stand Transfer [place] Level: Sit->Stand: independent Skilled Rationale: Cues for increased safety Skilled Intervention/Details: Sit->Stand: x1 EOB Stand to Sit Transfer [place] Level: Stand->Sit: supervision Assistive Device: Stand->Sit: gait belt, armed chair Skilled Rationale: Verbal cues, Controlled descent for sitting, Cues for increased safety Skilled Intervention/Details: Stand->Sit: cues for hand placement and controlled descent Functional Mobility: Functional Mobility [place] Level: Functional Mobility/Gait: stand-by assist Assistive Device: Functional Mobility/Gait: gait belt Functional Mobility Distance: Distance needed for limited community mobility Functional Mobility Deficits: Activity tolerance, Balance, Decreased step length, Generalized weakness Functional Mobility Skilled Rationale: Verbal cues, Facilitate postural control Skilled Intervention/Details - Functional Mobility/Gait: cues for upright posture Outcome Score(s): CURRENT [facility] Daily Activity Inpatient Short Form Putting on/Taking Off Lower Body Clothin - A Little Assistance Bathin - A Little Assistance Toiletin - A Little Assistance Putting on/Taking Off Upper Body Clothin - No Assistance Groomin - No Assistance Eatin - No Assistance CURRENT [facility] Activity Raw Score: 21 CURRENT [facility] Activity Functional Limitation/Modifier: 32.79% Currently [...] DAY SURGERY MAIN OR KIDNEY TRANSPLANT W/O KIPNUK NEPHRECTOMY N/A 04/12/2020 Laterality: N/A; Surgeon: LU Palma; Location: [facility] SAME DAY SURGERY MAIN [...] by: Mel Norman OT, OTR/L License #: [id number] pager # [phone] 05/20/2022 Upon discontinuation of Acute Care Occupational Therapy Services or patient discharge from the hospital this note represents the current Occupational Therapy Discharge Summary. documented in this encounter [facility] 05-20-2022 Hospital course [...] during his recent hospital stay at [facility]. As you may know, George [...] Saldana MD Division of Hospital Medicine p: [phone] f: [phone] CONSULTS DURING ADMISSION: IP CONSULT TO SURGERY - UROLOGY IP CONSULT TO NEPHROLOGY - TRANSPLANT (MEDICINE) IP CONSULT TO INTERVENTIONAL RADIOLOGY IP CONSULT TO PHYSICAL THERAPY IP CONSULT TO OCCUPATIONAL THERAPY IP CONSULT TO PHARMACY BEDSIDE DISCHARGE MED DELIVERY IMAGING / PROCEDURES / RESULTS: Should you require further information or copies of results or reports please contact Medical Information Management @ [phone] LABS AT TIME OF DISCHARGE: Lab Results [...] Bruno [address] / [place] [address] MEDICATIONS: Discharge Orders CT ABDOMEN/PELVIS WITHOUT CONTRAST [...] CAPS Generic drug: docusate Follow-up: Zuly Bruno, [employer] [address] [facility] [address] Schedule an appointment as soon as possible for a visit Follow-up appointment with your, primary care physician within 7-10 days, after discharge. [address] [facility] [phone] Follow up The department of urology will call you with a follow up appointment. LU Ovalle [address] [facility] [address] Follow up Please make a follow up appointment with Dr. Munoz's office. Upcoming Appointments (up to five)-Some appointments for Medical Center outpatient clinics or diagnostic testing locations are not displayed below Provider Department Dept Phone 06/04/2022 10:40 AM IR LEWIS MACIEL [facility] Interventional Radiology Clinic [phone] 06/27/2022 1:30 PM [facility] Department of Radiology Arrive at: Arrive to First Floor Registration Desk [phone] 06/27/2022 2:40 PM Rayn Yepez [facility] Arrive at: Arrive to 2nd Floor, Registration [address] 10/31/2022 1:00 PM Steve Munoz [facility] Transplant [facility] [phone] 01/16/2023 9:40 AM TRANSPLANT HEPATOLOGY , [facility] Transplant [facility] [phone] Associated attestation - Dyaa Saldana MD - 05/20/2022 5:24 PM EDT [...] Saldana MD Division of Hospital Medicine Pager [phone] documented in this encounter [facility] 05-20-2022 Hospital Discharge instructions Giulia [...] be changed by Interventional Radiology. Please call [phone] to schedule this appointment and with any [...] Ongoing Goal: Interdisciplinary Rounds/Family Conf Outcome: [facility] Note Formatting of this n ote might be different from the original. Discussed with [facility] re: possible urine culture performed [...] 25ml urine output in matias this afternoon. [facility] Note Formatting of this [...] with questions. Evan Byrd MD Urology, PGY-2 #[id number] [facility] Work Phone: 05-16-2022 [...] care will be discharge to home. [facility] 05-16-2022 Consult note Associated Order (s): IP CONSULT TO NEPHROLOGY - TRANSPLANT (MEDICINE) I saw George Styles at the [facility] on 05/16/2022. Reason for Consultation: [...] he was given flomax and sent home. [place] better but noticed more pain and decreased [...] (MEDICINE) I saw George Styles at the [facility] on 05/16/2022. Reason for Consultation: [...] he was given flomax and sent home. [place] better but noticed more pain and decreased [...] states he went to his local ED [place] and he was put on Flomax and he did improve. Pt states last night he was unable to void with severe right sided abd pain. Pt states nausea and no vomiting or fevers. Pt states he went back to [facility] ED at 0100 and they placed a [...] orthotopic (N/A, 04/12/2020); and kidney transplant w/o zuni nephrectomy (N/A, 04/12/2020). 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 The zuni kidneys are progressively atrophic bilaterally compared to [...] of 06/14/2020 are no longer present. The zuni distal right ureter is decompressed beyond this [...] with surgical history for renal graft and zuni right urinary drainage, as a discrete ureteroneocystostomy is not identified, and the graft may be draining via a ureteroureterostomy. Urology consultation recommended. 3. The zuni kidneys are bilaterally atrophic, with right renal sinus calcifications consistent with nonobstructing right zuni renal calculi up to 6 mm. Normal [...] PGY-3, Department of Urologic Surgery Pager #: [phone] Associated attestation - Ryan Yepez MD - [...] continue flomax documented in this encounter [facility] 05-16-2022 Note Formatting of this [...] different from the original. On admission to [facility], a dual RN initial assessment [...] Thursday and was sent home with [facility]. He went back to that ED and [...] 04/12/2020 Laterality: N/A; Surgeon: LU Palma; Location: [facility] SAME DAY SURGERY MAIN OR KIDNEY TRANSPLANT W/O KIPNUK NEPHRECTOMY N/A 04/12/2020 Laterality: N/A; Surgeon: LU Palma; Location: [facility] SAME DAY SURGERY MAIN [...] Schneider MD Resident 05/15/222030 Pt arrives from [facility] with kidney stones. Pt states he had right lower abd pain and right flank pain with blood in his urine since Thursday. Pt states he went to his local ED [place] and he was put on Flomax and he did improve. Pt states last night he was unable to void with severe right sided abd pain. Pt states nausea and no vomiting or fevers. Pt states he went back to [facility] ED at 0100 and they placed a matias and CT scan completed and multiple kidney stones noted. [facility] as he had liver and kidney transplant in 03/2020. documented in this encounter [facility] 05-15-2022 History and physical note Internal Medicine Admission History & Physical Patient: George Styles, 1970, [id number] Physician: Evan Bennett MD, PGY1, Pager #[phone], GM 4 service Date of face to [...] 04/12/2020 Laterality: N/A; Surgeon: LU Palma; Location: [facility] SAME DAY SURGERY MAIN OR KIDNEY TRANSPLANT W/O KIPNUK NEPHRECTOMY N/A 04/12/2020 Laterality: N/A; Surgeon: LU Palma; Location: [facility] SAME DAY SURGERY MAIN [...] erythema: Skin: No jaundice or rash Neuro: fire sprinkler designer 3-7, 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 Strength grossly [...] dilation of the calyces may represent narrowing/partial [id number] ofthe ureter and mild hydronephrosis or sequela [...] MD Division of Hospital Medicine [phone] [facility] Work Phone: 05-15-2022 History and physical note Internal Medicine Admission History & Physical Patient: George Styles, 1970, [id number] Physician: Evan Bennett MD, PGY1, Pager #[phone], GM 4 service Date of face to [...] DAY SURGERY MAIN OR KIDNEY TRANSPLANT W/O KIPNUK NEPHRECTOMY N/A 04/12/2020 Laterality: N/A; Surgeon: LU Palma; Location: [facility] SAME DAY SURGERY MAIN [...] erythema: Skin: No jaundice or rash Neuro: fire sprinkler designer 3-7, 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 Strength grossly [...] dilation of the calyces may represent narrowing/partial [id number] ofthe ureter and mild hydronephrosis or sequela [...] Medicine [id number] documented in this encounter [facility] 05-15-2022 Emergency department Note Bladder scan with Dr Villatoro at bedside, 14ml noted [facility] 05-15-2022 Consult note Associated Order [...] states he went to his local ED [place] and he was put on Flomax and he did improve. Pt states last night he was unable to void with severe right sided abd pain. Pt states nausea and no vomiting or fevers. Pt states he went back to [facility] ED at 0100 and they placed a [...] orthotopic (N/A, 04/12/2020); and kidney transplant w/o zuni nephrectomy (N/A, 04/12/2020). 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 The zuni kidneys are progressively atrophic bilaterally compared to [...] of 06/14/2020 are no longer present. The zuni distal right ureter is decompressed beyond this [...] with surgical history for renal graft and zuni right urinary drainage, as a discrete ureteroneocystostomy is not identified, and the graft may be draining via a ureteroureterostomy. Urology consultation recommended. 3. The zuni kidneys are bilaterally atrophic, with right renal sinus calcifications consistent with nonobstructing right zuni renal calculi up to 6 mm. Normal [...] PGY-3, Department of Urologic Surgery Pager #: [phone] Associated attestation - Ryan Yepez MD - [...] before surgical intervention --may continue flomax [facility] Work Phone: 05-15-2022 Emergency department Note Advised Dr Schneider concerning no urine output via matias catheter. [facility] 05-15-2022 Physician Emergency department Note [...] matias since [facility]. [facility] [...] 04/12/2020 Laterality: N/A; Surgeon: LU Palma; Location: [facility] SAME DAY SURGERY MAIN OR KIDNEY TRANSPLANT W/O KIPNUK NEPHRECTOMY N/A 04/12/2020 Laterality: N/A; Surgeon: LU [...] REFLEX TO CULTURE ED Course as of 05/15/222029u May 15, 2022 1736 NITRITES, URINE: Negative [...] excuse any incorrections. Matt Schneider MD Resident 06/16/22 2031 [facility] Work Phone: 05-15-2022 Emergency department Note Pt arrives from [facility] with kidney stones. Pt states he had right lower abd pain and right flank pain with blood in his urine since Thursday. Pt states he went to his local ED [place] and he was put on Flomax and he did improve. Pt states last night he was unable to void with severe right sided abd pain. Pt states nausea and no vomiting or fevers. Pt states he went back to [facility] ED at 0100 and they placed a [...] No Mailing/Pickup Date: 03/17/2022 Shipping Address: [address] [place] [address] [address] Contact Info: Specialty ([place]) [phone] Jakob [phone] [facility] [phone] David [phone] Bedside Delivery ([facility]) [phone] documented in this encounter [facility] 05/16/22 Goal Progress: Satisfactory Contact Info: Specialty ([place]) [phone] [facility] [phone] [facility] [phone] [facility] [phone] Bedside Delivery ([facility]) [phone] [facility]: Call Information: Date [...] Home Signature Required: Yes Shipping Address: [address] [place] [address] [address] [facility] [address] Contact Info: Specialty ([place]) [phone] Jakob [phone] [facility] [phone] David [phone] Bedside Delivery ([facility]) [phone] documented in this encounter [facility] Evaluation note Diagnosis FAYE (acute kidney injury)- Primary Acute kidney failure, unspecified Hydronephrosis due to obstruction of ureteral orifice Hydronephrosis due to obstruction of ureteral orifice FAYE (acute kidney injury) Acute kidney failure, unspecified documented [facility] Diagnosis Follow-up exam- Primary Unspecified follow-up examination documented [facility] this [facility] Diagnosis Immunosuppressed status- Primary Unspecified disorder of immune mechanism Kidney replaced by transplant Liver replaced by transplant Abnormal blood chemistry Other abnormal blood chemistry High risk medication use Encounter for long-term (current) use of other medications Aftercare following organ transplant Liver transplant recipient [facility] Diagnosis Attention to nephrostomy- Primary [facility] Diagnosis Other hydronephrosis- Primary [facility] Diagnosis FAYE (acute kidney injury) Acute kidney failure, unspecified [facility] Diagnosis Other hydronephrosis- Primary -donor kidney transplant recipient Kidney replaced by transplant [facility] Diagnosis Other hydronephrosis [facility] Diagnosis 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) Encounter for screening for malignant neoplasm of prostate Special screening for malignant neoplasm of prostate documented [facility] this [facility] Diagnosis Abnormal blood chemistry- Primary Other abnormal blood chemistry Liver transplant recipient Kidney replaced by transplant Immunosuppressed status Unspecified disorder of immune mechanism Aftercare following organ transplant documented [facility] Diagnosis Kidney replaced by transplant- Primary [facility] Diagnosis Immunosuppressed status- Primary Unspecified disorder of immune mechanism Kidney replaced by transplant Aftercare following organ transplant High risk medication use Encounter for long-term (current) use of other medications Other general symptoms and signs Abnormal blood chemistry Other abnormal blood chemistry Hypertension secondary to other renal disorders documented [facility] this [facility] Diagnosis Histoplasmosis- Primary Histoplasmosis, unspecified [...] Fever, unspecified [facility] Diagnosis Bilateral lower extremity edema- Primary 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) Atherosclerosis 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) Atherosclerosis of aorta Obesity (BMI 30-39.9) DARLENE (obstructive sleep apnea) Obstructive sleep apnea (adult) (pediatric) Tremor Abnormal involuntary movements Immunocompromised (CMS/HCC) Unspecified immunity deficiency Primary hypertension (CMS/HCC) Unspecified essential hypertension Shortness of breath documented in this encounter [facility]* Diagnosis Pleural effusion on [...] pre-operative examination documented [facility] this encounter [facility] Diagnosis Heart failure, diastolic, acute- Primary Acute diastolic heart failure [facility] Consultation (Routine) - New Request Specialty Diagnoses / Procedures Referred By Deni edwards Referred To Contact Interventional Radiology Diagnoses Hydronephrosis due to obstruction of ureteral orifice Daya Saldana MD [address] [place] [address] Referral ID Status Reason Start Date Expiration Date V isits Requested Visits Authorized [id number] New Request 05/18/2022 06/12/2023 1 1 * Radiology (Emergency) - New Request Specialty Diagnoses / Procedures Referred By Contac t Referred To Contact Procedures US RENAL TRANSPLANT SCAN Daya Saldana MD [address] [place] [address] Referral ID Status Reason Start Date Expiration Date V isits Requested Visits Authorized [id number] New Request 05/16/2022 06/10/2023 1 1 * Consultation (Routine) - New Request Specialty Diagnoses / Procedures Referred By Contac t Referred To Contact Urology Diagnoses FAYE (acute kidney injury) Ryan Yepez MD [address] [place] [address] [address] [place] [address] Referral ID Status Reason Start Date Expiration Date V isits Requested Visits Authorized [id number] New Request 05/16/2022 06/10/2023 1 1 * MRI/CAT Scan (Routine) - New Request Specialty Diagnoses / Procedures Referred By Contac t Referred To Contact Diagnoses FAYE (acute kidney injury) Procedures CT ABDOMEN/PELVIS WITHOUT CONTRAST CHG CT SCAN,ABDOMENT AND PELVIS,W/O CONTRAST Ryan Yepez MD [address] [place] [address] [address] [place] [address] Referral ID Status Reason Start Date Expiration Date V isits Requested Visits Authorized [id number] New Request 05/16/2022 06/10/2023 1 1 * (Routine) - Pending Review Specialty Diagnoses / Procedures Referred By Contac t Referred To Contact Procedures PLATELET MONITORING PER PROTOCOL Daya Saldana MD [address] [place] [address] Referral ID Status Reason Start Date Expiration Date V isits Requested Visits Authorized [id number] Pending Review 05/15/2022 06/09/2023 1 1 * (Routine) - Pending Review Specialty Diagnoses / Procedures Referred By Contac t Referred To Contact Procedures DVT/VTE RISK ASSESSMENT Daya Saldana MD [address] [place] [address] Referral ID Status Reason Start Date Expiration Date V isits Requested Visits Authorized [id number] Pending Review 05/15/2022 06/09/2023 1 1 * (Routine) Specialty Diagnoses / Procedures Referred By Contac t Referred To Contact Evan Bennett MD [address] [place] [address] Referral ID Status Reason Start Date Expiration Date Visits Re quested Visits Authorized * (Routine) Specialty Diagnoses / Procedures Referred By Contac t Referred To Contact Evan Bennett MD [address] [place] [address] Referral ID Status Reason Start Date Expiration Date Visits Re quested Visits Authorized [facility] for referral (narrative)* Consultation (Routine) - New Request Specialty Diagnoses / Procedures Referred By Contac t Referred To Contact Sleep Medicine Diagnoses Kevin Conroy MD [address], [place] [address] Referral ID Status Reason Start Date Expiration Date V isits Requested Visits Authorized [id number] New Request 09/10/2023 10/04/2024 1 1 * MRI/CAT Scan (Routine) - New Request Specialty Diagnoses / Procedures Referred By Contac t Referred To Contact Diagnoses Histoplasmosis Procedures CT CHEST WITHOUT CONTRAST CHG DIAGNOSTIC COMPUTED TOMOGRAPHY THORAX W/O JAZMINERST Kevin Sage MD [address] [place] [phone] Referral ID Status Reason Start Date Expiration Date V isits Requested Visits Authorized [id number] New Request 09/10/2023 10/04/2024 1 1 * Radiology (Routine) - New Request Specialty Diagnoses / Procedures Referred By Contac t Referred To Contact Procedures US RENAL TRANSPLANT SCAN Steve Munoz MBBS [address], [place] [address] Referral ID Status Reason Start Date Expiration Date V isits Requested Visits Authorized [id number] New Request 08/29/2023 09/22/2024 1 1 * (Routine) - New Request Specialty Diagnoses / Procedures Referred By Contac t Referred To Contact Procedures PLATELET MONITORING PER PROTOCOL Steve Munoz MBBS [address], [place] [address] Referral ID Status Reason Start Date Expiration Date V isits Requested Visits Authorized [id number] New Request 08/28/2023 09/21/2024 1 1 * (Routine) - New Request Specialty Diagnoses / Procedures Referred By Contac t Referred To Contact Procedures DVT/VTE RISK ASSESSMENT Steve Munoz MBBS [address] [place] [address] Referral ID Status Reason Start Date Expiration Date V isits Requested Visits Authorized [id number] New Request 08/28/2023 09/21/2024 1 1 [facility] Instructions * Patient Instructions - Christin Elizabeth APRN-CNP - 10/19/2018 9:21 AM EST You should take an extra dose of the lactulose as needed so that you are having 3-4 bowel movementsdaily. You should start the chemical dependency counseling as soon as possible. If you have questions, call the transplant executive secretary social welfare Fidelina Pierson. in this encounter* Patient Instructions - Sophie Cary RN - 10/12/2018 11:09 AM EST You have been seen in the pre-transplant evaluation clinic by Dr. Restrepo and Sophie Cary. Sophie Cary is your pre-social services coordinator she can be reached at [phone] at any time for questions during the pre-transplant process. Your evaluation is complete pendin. Abdominal ultrasound. 2. 6 minute walk test. 3. Cardiology evaluation. Additionally, your staff rn will recommend testing to screen for coronary artery disease. This will be scheduled for you after your cardiology visit. 4. Your coordinator will be requesting record from your last dental visit, colonoscopy and EGD. 5. Please work to complete social work recommendations. Your executive secretary social welfare will be contacting you to follow up on your progress. 6. You have also been referred for a kidney transplant. An appointment will be scheduled for you sari evaluated in the kidney transplant clinic after you have satisfied requirements dictated by [employer] company. Once your testing is complete, we [...] ___ Other Name MRN * Christin Elizabeth, OUTREACH ASSOCIATE-[employer]TENANCE [employer] - 10/19/2018 9:00 AM EST Formatting of this note may be different from the original. History of Present Illness: Chief Complaint Patient presents with Follow-up Cirrhosis George Styles is a 48 y.o. male who presents to the [facility] today regarding his diagnosis/chief complaint(s) of Cirrhosis secondary to ETOH, with ESRD follows with Dr. Orr. Currently undergoing evaluation for liver/kidney transplant. Has been seen in transplant clinic for eval. Still undergoing pre testing. Diagnosed in April 2018. Last drink was immediately prior to hospital admission in [place] for ACLF. Hospital course notable for ARF [...] kidney transplant evaluation. Pt was AOx3. Transplant Rope Coiling Machine Operator role/function was explained and reviewed. [...] and resources were offered. Pt identifies with [employer]RI[employer]IAN[employer] zoroastrianism. Pt confirms being a [place] Citizen. Pt.'s primary language is Belgian. Pt confirms the ability to read,write, and understand Belgian. Pt denies potential donors. Donor cards and [...] has valid license, does not regularly drive ([employer]TENA[employer] recommends that he not to drive). He [...] organ related disease etoh cirrohosis April in [facility] for thirty days. Pt reports learning that [...] as well as referred him to pre social services coordinator. Pt and support demonstrated moderate [...] minutes away. 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 He confirms being comfortable asking [...] in 2010, he was employed by the [employer]. He has access to SSDI payment (SSDI starts in November) in regards to financial means pre/ post-transplant. Pt confirms (meeting bills currently, ) being able to meet daily needs. Patient's brother asking for additional information on community resources, food stamps and [place]. Refer him to pt.'s dialysis center and the [facility]. Hereports access to Medicaid. Pt. denies [...] treatment after a DUI charge [facility] in [place], court ordered treatment in 2001 and in [...] by patient from his primary medical provider- [facility] patient was noted as attending an alcohol [...] He was provided with local AOD resources, [facility] AOD informational packet. Pt was referred [...] new visit Date of service: 10/12/2018 -Referring kiln pusher for today's consult: -Primary Care Provider: Zuly Bruno CC: Chief Complaint Patient presents with Liver Recipient Evaluation History of Present Illness George Styles is a 48 y.o. male who presents to the [facility] liver transplant surgery clinic today for [...] EST Timed up and go 9.9 seconds Pit Clerk Left 52.8 pounds Right 44.9 pounds Waist circ 38.5 inches * Sophie Cary, SAMI - 10/12/2018 10:00 AM EST Formatting of this note may be different from the original. Patient George Styles ([id number]), accompanied by his brother, was seen on [...] any further questions. Sophie GUERINN, RN Liver Landscaping Manager Etiology: ETOH HCC: No ETOH: Yes [...] Yovani Orr MD [address] [address] Status Reason Specialty Diagnoses / Procedures Referred By Contact Referred To Contact New Request Diagnoses Cirrhosis of liver with ascites, unspecified hepatic cirrhosis type Procedures US ABDOMEN RUQ/LIVER/GB Yovani Orr MD [address] [address] Specialty Diagnoses / Procedures Referred By Contac t Referred To Contact Diagnoses FAYE (acute kidney injury) Procedures CT ABDOMEN/PELVIS WITHOUT CONTRAST CHG CT SCAN,ABDOMENT AND PELVIS,W/O CONTRAST Central Scheduling [address] [place] [address] Referral ID Status Reason Start Date Expiration Date V isits Requested Visits Authorized [id number] Pending Review 05/16/2022 06/10/2023 1 1 Specialty Diagnoses / Procedures Referred By Contac t Referred To Contact Diagnoses Other hydronephrosis Procedures FLUORO IMAGING FOR UROLOGY Ryan Yepez MD [address] [facility] [address] [place] [address] Referral ID Status Reason Start Date Expiration Date V isits Requested Visits Authorized [id number] New Request 07/07/2022 08/01/2023 1 1 Specialty Diagnoses / Procedures Referred By Contac t Referred To Contact Procedures DIRECT ADMIT REQUEST Steve Munoz MBBS [address] [place] [address] Referral ID Status Reason Start Date Expiration Date V isits Requested Visits Authorized [id number] New Request 08/28/2023 09/21/2024 1 1 Specialty Diagnoses / Procedures Referred By Contac t Referred To Contact Radiology Diagnoses DARLENE (obstructive sleep apnea) Primary hypertension (CMS/HCC) Bilateral lower extremity edema Shortness of breath Procedures Echocardiogram 2D complete Zuly Bruno NP [address] [place] [address] Referral ID Status Reason Start Date Expiration Date Visits Requested Visits Authorized [id number] Incomplete Perform Procedure 01/06/2024 07/04/2024 1 1 Specialty Diagnoses / Procedures Referred By Contac t Referred To Contact Procedures US IMAGING REGIONAL ANESTHESIA Kehinde Gutierrez MD [address] [place] [address] Referral ID Status Reason Start Date Expiration Date V isits Requested Visits Authorized [id number] New Request 01/22/2024 02/15/2025 1 1 Specialty Diagnoses / Procedures Referred By Contac t Referred To Contact Cardiovascular Medicine Diagnoses Heart failure, diastolic, acute Kelvin Pacheco MD, MBBS [address] [place] [phone] Referral ID Status Reason Start Date Expiration Date V isits Requested Visits Authorized [id number] New Request 01/20/2024 02/13/2025 1 1 Specialty Diagnoses / Procedures Referred By Contac t Referred To Contact Procedures US ABDOMEN LIVER DOPPLER US ABDOMEN LIVER TRANSPLANT DOPPLER Timothy Joseph MD [address] [place] [address] Referral ID Status Reason Start Date Expiration Date V isits Requested Visits Authorized [id number] New Request 01/16/2024 02/09/2025 1 1 Specialty Diagnoses / Procedures Referred By Contac t Referred To Contact Procedures DVT/VTE RISK ASSESSMENT Kelvin Pacheco MD, LU [address] [place], [place] [id number] Referral ID Status Reason Start Date Expiration Date V isits Requested Visits Authorized [id number] New Request 01/16/2024 02/09/2025 1 1 Specialty Diagnoses / Procedures Referred By Contac t Referred To Contact Procedures PLATELET MONITORING PER PROTOCOL Kelvin Pacheco MD, MBBS [address] [place] [address] Referral ID Status Reason Start Date Expiration Date V isits Requested Visits Authorized [id number] New Request 01/16/2024 02/09/2025 1 1 Referral ID Status Reason Start Date Expiration Date V isits Requested Visits Authorized [id number] New Request 01/16/2024 02/09/2025 1 1 Specialty Diagnoses / Procedures Referred By Contac t Referred To Contact Procedures ECG Kelvin Pacheco MD, MBBS [address] [place] [address] Referral ID Status Reason Start Date Expiration Date V isits Requested Visits Authorized [id number] New Request 01/16/2024 02/09/2025 1 1 Advance Directives No Advanced Directives Records FoundDocuments on File Type Date Recorded Patient Books Binder Expl anation Advance Directives and Living Will Power of Subassemblies Wirer Latest Code Status on File Code Status [...] RUQ/LIVER/GB Yovani Orr MD [address] [address] Status Reason Specialty Diagnoses / Procedures Referre d By Contact Referred To Contact Denied Diagnoses Alcoholic cirrhosis, unspecified whether ascites present Pre-transplant evaluation for liver transplant Procedures MRI ABDOMEN WITH CONTRAST UT MRI, ABDOMEN W/CONTRAST Yovani Orr MD [address] [place] [address] Reason Comments Liver Recipient Evaluation Status Reason Specialty Diagnoses / Procedures Referred By Contact Referred To Contact New Request Transplant / Transplant Surgery Procedures PRE NEW PATIENT Yovani Orr MD [address] [place] [address] [place] [address] Alfredito Restrepo MD [address] [place] [address] Reason Comments Reschedule Reason Comments Outside Medical Records Request Reason Comments Social Work Follow-up Reason Comments Kidney Stone Specialty Diagnoses / Procedures Referred By Deni t Referred To Contact Diagnoses Obstructing kidney stone, s/p kidney transplant 2019 Daya Saldana MD [address] [place] [address] [facility] [address] [place] [address] Referral ID Status Reason Start Date Expiration Date Visits Re quested Visits Authorized [id number] 1 1 Reason Comments Follow-up Reason Comments Kidney Recipient Follow-up Liver Recipient Follow-up Reason Comments Consult Reason Comments New Patient Hospital follow up Specialty Diagnoses / Procedures Referred By Deni t Referred To Contact Urology Diagnoses hosp fu with [address] prior Procedures NEW TO DOC/RET PATIENT Zuly Bruno, ROB [address] [place] [address] Ryan Yepez MD [address] [facility] [address] [place] [address] Referral ID Status Reason Start Date Expiration Date Visits Re quested Visits Authorized [id number] Closed 06/27/2022 07/22/2023 1 1 Specialty Diagnoses / Procedures Referred By Contac t Referred To Contact Diagnoses FAYE (acute kidney injury) Procedures CT ABDOMEN/PELVIS WITHOUT CONTRAST CHG CT SCAN,ABDOMENT AND PELVIS,W/O CONTRAST Central Scheduling [address] [place] [address] Referral ID Status Reason Start Date Expiration Date V isits Requested Visits Authorized [id number] Pending Review 05/16/2022 06/10/2023 1 1 Reason Comments Follow-up Specialty Diagnoses / Procedures Referred By Contac t Referred To Contact Urology Diagnoses 1 week fu post NT clamp Procedures RETURN PATIENT Zuly Bruno, [facility] [address] [place] [address] Ryan Yepez MD [address] [place] [address] [address] [place] [address] Referral ID Status Reason Start Date Expiration Date Visits Requested Visits Authorized [id number] Authorized - 07/07/2022 08/01/2023 2 2 Specialty Diagnoses / Procedures Referred By Contac t Referred To Contact Diagnoses Other hydronephrosis Procedures FLUORO IMAGING FOR UROLOGY Ryan Yepez MD [address] [place] [address] [address] [place] [address] Referral ID Status Reason Start Date Expiration Date V isits Requested Visits Authorized [id number] New Request 07/07/2022 08/01/2023 1 1 Specialty Diagnoses / Procedures Referred By Contac t Referred To Contact Urology Diagnoses 1 week fu post NT clamp Procedures RETURN PATIENT Zuly Bruno, [facility] [address] [place] [address] Ryan Yepez MD [address] [facility] [address] [place] [address] Referral ID Status Reason Start Date Expiration Date Visits Re quested Visits Authorized [id number] Closed 07/07/2022 08/01/2023 2 2 Reason Comments Liver Recipient Follow-up Reason Comments Kidney Recipient Follow-up Reason Comments Kidney Recipient Follow-up Specialty Diagnoses / Procedures Referred By Deni t Referred To Contact Diagnoses Kidney replaced by transplant Steve Munoz MBBS [address] [place] [address] [facility] [address] [place] [address] Referral ID Status Reason Start Date Expiration Date Visits Re quested Visits Authorized [id number] 1 1 Specialty Diagnoses / Procedures Referred By Contac t Referred To Contact Diagnoses Pleural effusion on right PNEUMONIA- HX LIVER AND KIDNEY TRANSPLANT Kevin Sage MD [address] [place] [address] [facility] [address] [place] [address] Referral ID Status Reason Start Date Expiration Date Visits Re quested Visits Authorized [id number] 1 1 Reason Comments New Patient Specialty Diagnoses / Procedures Referred By Deni t Referred To Contact Cardiovascular Medicine Diagnoses Heart failure, diastolic, acute Kelvin Pacheco MD, MBBS [address] [place] [address] Referral ID Status Reason Start Date Expiration Date Visits Requested Visits Authorized [id number] Authorized - 01/20/2024 02/13/2025 5 5 (unrecognized sect ion and content) No Status Records FoundNo Status Records FoundNo Status Records FoundNo Status Records FoundNo Status Records FoundNo Status Records Found INFORMATION SOURCE (unrecogn ized section and content) DATE CREATED AUTHOR 01/07/2020 [facility] DATE CREATED AUTHOR AUTHOR'S ORGANIZ ATION 01/27/2021 [facility] DATE CREATED AUTHOR AUTHOR'S ORGANIZ ATION 05/11/2023 [facility] DATE CREATED AUTHOR AUTHOR'S ORGANIZ ATION 04/19/2024 [facility] EPIC DATE CREATED AUTHOR AUTHOR'S ORGANIZ ATION 05/08/2024 [facility] DATE CREATED AUTHOR AUTHOR'S ORGANIZ ATION 05/15/2024 [facility] Care Teams (unrecognized sec tion and content) Bench Molder Relationship Specialty Start Date End Date Zuly Bruno CNP PCP - General 07/19/18 Comfort Rivera, [facility] [address] [facility] [address] [place] [phone] Pharmacist Pharmacist 05/16/20 Angel Carpio [facility],PharmD Pharmacist Pharmacist 05/16/20 Te Leigh [facility],PharmD Pharmacist Pharmacist 01/09/21 Bench Molder Relationship Specialty Start Date End Date Zuly Bruno CNP PCP - General 07/19/18 Comfort Rivera, [facility] [address] [facility] [address] [place] [address] Pharmacist Pharmacist 05/16/20 Angel Carpio [facility],PharmD Pharmacist Pharmacist 05/16/20 Te Leigh [facility],PharmD Pharmacist Pharmacist 01/09/21 Bench Molder Relationship Specialty Start Date End Date Zuly Bruno CNP PCP - General 07/19/18 Bench Molder Relationship Specialty Start Date End Date Zuly Bruno CNP PCP - General 07/19/18 Bench Molder Relationship Specialty Start Date End Date Zuly Bruno CNP PCP - General 07/19/18 Bench Molder Relationship Specialty Start Date End Date Zuly Bruno CNP PCP - General 07/19/18 Bench Molder Relationship Specialty Start Date End Date Zuly Bruno CNP PCP - General 07/19/18 Bench Molder Relationship Specialty Start Date End Date Zuly Bruno CNP PCP - General 07/19/18 Bench Molder Relationship Specialty Start Date End Date Zuly Bruno CNP PCP - General 07/19/18 Bench Molder Relationship Specialty Start Date End Date Zuly Bruno CNP PCP - General 07/19/18 Bench Molder Relationship Specialty Start Date End Date Zuly Bruno CNP PCP - General 07/19/18 Bench Molder Relationship Specialty Start Date End Date Zuly Bruno CNP PCP - General 07/19/18 Bench Molder Relationship Specialty Start Date End Date Zuly Bruno CNP PCP - General 07/19/18 Bench Molder Relationship Specialty Start Date End Date Zuly Bruno CNP PCP - General 07/19/18 Bench Molder Relationship Specialty Start Date End Date Zuly Bruno CNP PCP - General 07/19/18 Bench Molder Relationship Specialty Start Date End Date Zuly Bruno CNP PCP - General 07/19/18 Bench Molder Relationship Specialty Start Date End Date LexielydialatishaZuly tipton CNP PCP - General 07/19/18 Evan White DO [address] [place] [address] Infectious Disease Infectious Disease 09/09/23 Bench Molder Relationship Specialty Start Date End Date Zuly Bruno CNP PCP - General 07/19/18 Evan White DO [address] [place] [address] Infectious Disease Infectious Disease 09/09/23 Bench Molder Relationship Specialty Start Date End Date Zuly Bruno CNP PCP - General 07/19/18 Evan White DO [address] [place] [address] Infectious Disease Infectious Disease 09/09/23 Bench Molder Relationship Specialty Start Date End Date Momo Verdugo MD PCP - General Family Medicine 05/21/23 Bench Molder Relationship Specialty Start Date End Date Momo Verdugo MD PCP - General Family Medicine 05/21/23 Bench Molder Relationship Specialty Start Date End Date oMmo Verdugo MD PCP - General Family Medicine 05/21/23 Bench Molder Relationship Specialty Start Date End Date Zuly Bruno CNP PCP - General 07/19/18 Evan White DO [address] [place] [address] Infectious Disease Infectious Disease 09/09/23 Bench Molder Relationship Specialty Start Date End Date Zuly Bruno CNP PCP - General 07/19/18 Evan White DO [address] [place] [address] Infectious Disease Infectious Disease 09/09/23 Bench Molder Relationship Specialty Start Date End Date Zuly Bruno CNP PCP - General 07/19/18 Evan White DO [address] [place] [address] Infectious Disease Infectious Disease 09/09/23 Bench Molder Relationship Specialty Start Date End Date Zuly Bruno CNP PCP - General 07/19/18 Evan White DO [address] [place] [address] Infectious Disease Infectious Disease 09/09/23 Bench Molder Relationship Specialty Start Date End Date Zuly Bruno CNP PCP - General 07/19/18 Evan White DO [address] [place] [address] Infectious Disease Infectious Disease 09/09/23 Bench Molder Relationship Specialty Start Date End Date Zuly Bruno CNP PCP - General 07/19/18 Bench Molder Relationship Specialty Start Date End Date Zuly [...] (Unheld by provider - Provider: Nishant Gamez MD)08 (Given - Provider: Mel Hampton RN)1558 (Given [...] RN)1999 (Given - Provider: Carolyn Isaac RN) 804 [...] at 1715 1735 (Given - Provider: Mel Hampotn RN) sodium-potassium phosphate (K-PHOS NEUTRAL) tablet 1,000 [...] RN) 08 (Given - Provider: Josey Braun, SAMI)2104 (Given [...] RN)203 (Given - Provider: Girish Nunez RN) 08 (Given - Provider: Terra Heart RN)2024 (Given - Provider: Carolyn Plasencia RN) 09 (Given - Provider: Cheyanne Mcdonough RN) Potassium [...] 08 (Given - Provider: [facility]ra [facility] RN) 957 (Given - Provider: Cheyanne Mcdonough RN) Sulfamethoxazole-trime [...] - Reason: Transfer to a Procedural area)141 ([facility] Unhold - Provider: Automatic Transfer)2008 (Given - Provider: Tati Ahmadi RN) 09 (Given - Provider: [facility]ra [facility] RN) Sulfamethoxazole-trime thoprim (BACTRIM DS) 800-160 MG per tablet 1 tablet 1 tablet, Oral, THREE TIMES WEEKLY (Once per day on Thursday), First dose on Thu01/18/24 at 0900, Until Discontinued 08 (Given - Provider: Terra Heart RN)1052 ([facility] Hold - Provider: Automatic Transfer - Reason: Transfer to a Procedural area)1413 ([facility] Unhold - Provider: Automatic Transfer) tacrolimus (PROGRAF) susp 0.2 mg 0.2 mg, Oral, CUSTOM FREQUENCY (Once per day on Thursday), First dose on Thu01/16/24 at 0900, Until Discontinued, Caution check route of administration. For sublingual administration, place liquid under tongue and allow absorption. 08 (Given - Provider: Erica Gudino RN) 1052 ([facility] Hold - Provider: Automatic Transfer - Reason: Transfer to a Procedural area)141 ([facility] Unhold - Provider: Automatic Transfer) 922 (Given - Provider: Terra [facility] RN) Tamsulosin HCl (FLOMAX) capsule 0.4 mg 0.4 mg, Oral, DAILY, First dose on Thu01/16/24 at 0900, Until Discontinued, Slow release product. Do not chew or crush 42 (Given - Provider: Erica Gudino RN) 0841 (Given - Provider: Terra [facility] RN)105 ([facility] Hold - Provider: Automatic Transfer - Reason: Transfer to a Procedural area)141 ([facility] Unhold - Provider: Automatic Transfer) [...] 200 mg/day 0841 (Given - Provider: Terra Heart, SAMI)1053 ([facility] Hold - Provider: Automatic Transfer - Reason: Transfer to a Procedural area)1414 ([facility] Unhold - Provider: Automatic Transfer) [...] from all sources in 24 hours. 1053 ([facility] Hold - Provider: Automatic Transfer - Reason: Transfer to a Procedural area)1414 ([facility] Unhold - Provider: Automatic Transfer)1806 [...] 200-200 mg and Simethicone 20 mg) 1053 ([facility] Hold - Provider: Automatic Transfer - Reason: Transfer to a Procedural area)1414 ([facility] Unhold - Provider: Automatic Transfer) guaiFENesin (ROBITUSSIN) oral solution 400 mg 400 mg, Oral, EVERY 6 HOURS NEEDED, Starting on 01/16/24 at 0202, Until 01/23/24 at 1752, Cough, Congestion 1053 ([facility] Hold - Provider: Automatic Transfer - Reason: Transfer to a Procedural area)1414 ([facility] Unhold - Provider: Automatic Transfer) [...] 0016, Until 01/23/24 at 1752, Insomnia 1053 ([facility] Hold - Provider: Automatic Transfer - Reason: Transfer to a Procedural area)1414 ([facility] Unhold - Provider: Automatic Transfer)2355 (Given - Provider: Tati Ahmadi RN) Ondansetron (ZOFRAN) tablet 4 mg(Linked Group 1) 4 mg, Oral, EVERY 6 HOURS NEEDED, Starting on 01/16/24 at 0202, Until 01/23/24 at 1752, Nausea / Vomiting, 1st line for Nausea/Vomiting 1053 ([facility] Hold - Provider: Automatic Transfer - Reason: Transfer to a Procedural area)1414 ([facility] Unhold - Provider: Automatic Transfer)1809 (See Alternative - Provider: Terra Heart RN) 0430 (See Alternative - Provider: Tati Ahmadi RN)1415 (Given - Provider: [facility] RN) Ondansetron 4mg/2ml (ZOFRAN) injection 4 mg(Linked Group 1) 4 mg, Intravenous, EVERY 6 HOURS NEEDED, Starting on 01/16/24 at 0202, Until 01/23/24 at 1752, Nausea / Vomiting, 1st line for Nausea/Vomiting 1053 ([facility] Hold - Provider: Automatic Transfer - Reason: Transfer to a Procedural area)1414 ([facility] Unhold - Provider: Automatic Transfer)1809 [...] 01/23/24 at 1752, Constipation 1st Line 1053 ([facility] Hold - Provider: Automatic Transfer - Reason: Transfer to a Procedural area)1414 ([facility] Unhold - Provider: Automatic Transfer) Prochlorperazine (COMPAZINE) injection 10 mg 10 mg, Intravenous, EVERY 6 HOURS NEEDED, Starting on 01/17/24 at 1538, Until 01/23/24 at 1752, Nausea / Vomiting, Refractory Nausea Vomiting, For IV route: dilute dose with 10mL normal saline and give by slow IV push at a rate of 5mg/min. Maximum of 40mg/day. 1053 ([facility] Hold - Provider: Automatic Transfer - Reason: Transfer to a Procedural area)1414 ([facility] Unhold - Provider: Automatic Transfer)2349 [...] the intermittent or piggy back medication. 1053 ([facility] Hold - Provider: Automatic Transfer [...] BE BASED ON THE PRIMARY CLINICAL RECORDS. [employer] [facility]. provides no warranty or guarantee of the accuracy or completeness of information in this document.
[2024-05-23 07:04] LABS: Basophils Percent Auto 0.6 % (0.2-2.0); Eosinophils Absolute Auto 0.2 10^3/uL (0.0-0.7); Eosinophils Percent Auto 3.4 % (0.9-7.0); Hematocrit 46.6 % (42.0-54.0); Hemoglobin 15.2 g/dL (14.0-18.0); Immature Granulocytes Abs Auto 0.01 10^3/uL (0.00-0.03); Immature Granulocytes Pct Auto 0.2 % (0.0-0.5); Lymphocytes Absolute Auto 1.4 10^3/uL (1.2-3.8); Lymphocytes Percent Auto 28.4 % (20.5-60.0); Mean Corpuscular HGB Conc 32.6 g/dL (29.9-35.2); Mean Corpuscular Hemoglobin 29.4 pg (25.9-34.0); Mean Corpuscular Volume 90.1 fL (80.0-94.0); Mean Platelet Volume 9.9 fL (9.5-13.5); Monocytes Absolute Auto 0.4 10^3/uL (0.3-0.8); Monocytes Percent Auto 8.8 % (1.7-12.0); Neutrophils Absolute Auto 2.8 10^3/uL (1.4-6.5); Neutrophils Percent Auto 58.6 % (43.0-75.0); Platelet Count 236 10^3/uL (150-450); Red Blood Count 5.17 10^6/uL (4.70-6.10); Red Cell Distribution Width 12.5 % (11.0-15.0); White Blood Count 4.8 10^3/uL (4.0-11.0)
[2024-05-23 08:12] LABS: Creatinine Urine Random 89.52 mg/dL (20.00-300.00); Protein Creatinine Ratio Urine 0.15; Total Protein Urine Random 13.1 mg/dL (<=11.9)
[2024-05-23 08:22] LABS: Alanine Aminotransferase 25 U/L (16-63); Albumin Level 4.1 g/dL (3.4-5.0); Alkaline Phosphatase 124 U/L (46-116); Anion Gap 15.4; Aspartate Amino Transferase 18 U/L (15-37); BUN Creatinine Ratio 15.1; Bilirubin Direct 0.2 mg/dL (0.0-0.2); Bilirubin Total 0.9 mg/dL (0.2-1.0); Calcium 9.4 mg/dL (8.5-10.1); Carbon Dioxide 24.6 mmol/L (21.0-32.0); Chloride 107 mmol/L (98-107); Estimated GFR (African America >60 (>=60); Estimated GFR (Non-African Ame 60 (>=60); Gamma Glutamyl Transpeptidase 20 U/L (15-85); Glucose 105 mg/dL (74-106); Magnesium 2.3 mg/dL (1.8-2.4); Phosphorus 3.4 mg/dL (2.6-4.7); Sodium 143 mmol/L (136-145)
[2024-05-25 20:08] LABS: Tacrolimus (FK506), Blood 2.4 ng/mL (2.0-20.0)
== END 2024-05-23 06:36 | disposition home or self-care (01) ==
LOC: LAB 06:35
PROVIDERS: PCP Nurse Practitioner
DX: R79.9 Abnormal finding of blood chemistry, unspecified (principal); Z94.0 Kidney transplant status; Z94.4 Liver transplant status; Z48.298 Encounter for aftercare following other organ transplant
CPT/HCPCS: 36415; 80048; 80197; 82042; 82247; 82248; 82570; 82977; 83735; 84075; 84100; 84156; 84450; 84460; 85025

== ENCOUNTER 2024-05-30 06:58 | Outpatient (OUT) | payer MEDICARE, MEDICAID, SELFPAY ==
--- OUTSIDE RECORDS SUMMARY | 2024-05-30 07:08 | XMS_ITS | CCD ---
Author Organization [facility] Care Team Providers Care 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 Name Role Phone Kiana Zuly Unavailable [...] [facility], Zuly Primary Care Provider Miguel [facility] Unavailable Shirin [facility],PharmD, Angel Unavailable Unavailab makayla Leigh [facility],PharmD, Te Unavailable Unavai lable Aicholz [facility], Zuly Primary Care Provider CRISTINA, DR BURCH Admitting Unavailable MISC, DR BURCH Consulting Unavailable AICHHOLZ, CURRENCY COUNTER ZULY Primary Care Unavailable MISC, DR BURCH Attending Unavailable MISC, DR BURCH Admitting Unavailable MISC, DR BURCH Consulting Unavailable AICHHOLZ, CURRENCY COUNTER ZULY Primary Care Unavailable MISC, DR BURCH Attending Unavailable ARCELIA PIZARRO Consulting Unavailable KE BURNHAM Attending Unavailable KE BURNHAM Admitting Unavailable BARBARA, DR MÓNICA Munoz Consulting Unavailable AICHHOLZ, CURRENCY COUNTER ZULY Primary Care Unavailable KE BURNHAM Consulting Unavailable MISC, DR BURCH Consulting Unavailable MISC, DR BURCH Attending Unavailable AICHHOLZ, CURRENCY COUNTER ZULY Primary Care Unavailable MISC, DR BURCH Admitting Unavailable MISC, DR DOCTOR Consulting Unavailable MISC, DOCTOR Attending Unavailable AICHHOLZ, CURRENCY COUNTER ZULY Primary Care Unavailable MISC, DR BURCH Admitting Unavailable MISC, DR DOCTOR Consulting Unavailable AICHHOLZ, CURRENCY COUNTER ZULY Primary Care Unavailable MISC, DOCTOR Admitting Unavailable MISC, DR DOCTOR Attending Unavailable MELINDA, DR GEORGE Munoz Consulting Unavailable MELINDA, DR GEORGE Munoz Attending Unavailable AICHHOLZ, CURRENCY COUNTER ZULY Primary Care Unavailable MELINDA, DR GEORGE Munoz Admitting Unavailable NAUN ., KE Consulting Unavailable MIRANDA, LYNDSAY Consulting Unavailable MELINDA, DR GEORGE Munoz Consulting Unavailable NAUN ., KE Attending Unavailable NAUN ., KE Admitting Unavailable AICHHOLZ, CURRENCY COUNTER ZULY Primary Care Unavailable NAUN ., KE Consulting Unavailable GIAN HERRING Consulting Unavailable AICHHOLZ, CURRENCY COUNTER ZULY Consulting Unavailable AICHHOLZ, CURRENCY COUNTER ZULY Attending Unavailable AICHHOLZ, CURRENCY COUNTER ZULY Admitting Unavailable AICHHOLZ, CURRENCY COUNTER ZULY Primary Care Unavailable MISC, DR BURCH Consulting Unavailable MISC, DOCTOR Admitting Unavailable MISC, DOCTOR Attending Unavailable AICHHOLZ, CURRENCY COUNTER ZULY Primary Care Unavailable MISC, DR DOCTOR Consulting Unavailable MISC, DR DOCTOR Attending Unavailable MISC, DR DOCTOR Admitting Unavailable AICHHOLZ, CURRENCY COUNTER ZULY Primary Care Unavailable MISC, DR BURCH Admitting Unavailable MISC, DOCTOR Consulting Unavailable MISC, DOCTOR Attending Unavailable AICHHOLZ, CURRENCY COUNTER ZULY Primary Care Unavailable MISC, DOCTOR Admitting Unavailable MISC, DR DOCTOR Consulting Unavailable AICHHOLZ, CURRENCY COUNTER ZULY Primary Care Unavailable MISC, DR DOCTOR Attending Unavailable MISC, DOCTOR Admitting Unavailable MISC, DR DOCTOR Consulting Unavailable AICHHOLZ, CURRENCY COUNTER ZULY Primary Care Unavailable MISC, DR DOCTOR Attending Unavailable AICHHOLZ, CURRENCY COUNTER ZULY Consulting Unavailable AICHHOLZ, CURRENCY COUNTER ZULY Attending Unavailable AICHHOLZ, CURRENCY COUNTER ZULY Admitting Unavailable AICHHOLZ, CURRENCY COUNTER ZULY Primary Care Unavailable DR MÓNICA JIMENEZ Consulting Unavailable Aichholz CURRENCY COUNTER, Zuly Primary Care Provider Tran White DOs A Unavailable Aichholz CURRENCY COUNTER, Zuly Primary Care Provider Tran White DOs A Unavailable Momo Verdugo MD Primary Care Provider Aichholz ROB Zuly Primary Care Provider [phone] AICHHOLZ, ZULY Attending Unavailable AICHHOLZ, ZULY Attending [...] ZULY Referring Unavailable AICHHOLZ, ZULY Attending Unavailable MIGUEL CARDONA Attending Unavailable AICHHOLZ, ZULY Primary Care Unavailable TARA KELVIN K Referring Unavailable CANDIE ALMAGUER Attending Unavailable AICHHOLZ, ZULY Primary Care Unavailable AICHHOLZ, ZULY Primary Care Unavailable AICHHOLZ, ZULY Primary Care Unavailable AICHHOLZ, ZULY Primary Care Unavailable AICHHOLZ, ZULY Primary Care Unavailable CANDIE ALMAGUER Attending Unavailable TARA, KELVIN K Referring Unavailable AICHHOLZ, ZULY Primary Care Unavailable HAKEEM ALAMO Attending Unavailable SELF, SELF Referring Unavailable SELF, SELF Referring Unavailable REBECA GUTIERREZ Attending Unavailable AICHHOLZ, ZULY Primary Care Unavailable KEVIN PRINCE [...] HAKEEM ALAMO Attending Unavailable EVAN WHITE Referring UnavailZULY Fowler Primary Care Unavailable Allergies Allergy Classification Reported Allergen(s) Allergy Type Date of Onset Reaction(s) Facility (2 sources) Shellfish; Translations: [SHELLFISH DERIVED] Propensity to adverse reactions (disorder) 8 [facility] Repository (20 sources) Shellfish-Derive d Products Propensity to adverse reactions to drug 9 [facility] (1 source) Shellfish Drug allergy (disorder) [facility] Repository Medications Current Medications Medication Drug [...] 1 capsule by mouth once daily b vdbvhdp-G-ybgpt acid (NEPHROCAPS) 1 MG capsule Take 1 [...] ankle pain. 0 06/12/2020 06/12/2023 Discontinued lactulose 74882 mg powder for oral solution (19 sources) [...] itraconazole Fax results to: Dr. White - [phone] Transplant [facility] - [phone] Each 09/10/2023 01/19/2024 Discontinued (Medication Reconciliation (suppress cancel msg)) Start: 09-10-2023 CUSTOM MEDICAT ION Labs to be obtained: 1- Tacrolimus level, trough - collect twice weekly until 09/24/23, then weekly until 10/08/23, them once every two weeks there after. 2- Itraconazole level - obtain once between 09/14-09/18. 3- Chem 6 - Obtain weekly while on itraconazole Fax results to: Dr. White - [phone] [facility] - [phone] Each 0 09/10/2023 Active Diatrizoate (1 source) Start: 05-20-2022 End: 05-20-2022 diatrizoate Meglumine (Cystografin) 30 % UR solution 80 mL diphenhydrAMINE hydrochloride 25 mg oral tablet (1 source) Histamine-1 Receptor Antagonist Start: 09-03-2023 End: 09-11-2023 take 25 mg by mouth every twenty-four hours 25 mg, Oral, EVERY 24 HOURS, First dose on [facility] 09/03/23 at 1600, Until Discontinued Give [...] 01/16/2023 Discontinued [facility] 2 tablets [facility] magnesium oxide (Mag-Ox) [...] 06/14/2020 06/12/2023 Discontinued take 1 tablet by [facility] every eight hours as needed ondansetron 4 [...] (ROXICODONE) tablet 10 mg polyethylene glycol 3350 99722 mg powder for oral solution (20 sources) [...] Coronary arteriosclerosis; Translations: [Atherosclerotic heart disease of [place] coronary artery without angina pectoris] Onset: 3 [...] [Other usp (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] Episodic Other and ill-defined [...] 05-10-2020 Episodic Other aftercare (2 sources) Other media librarian (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; Translations: [OTH PRISON 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 THERAPY] Onset: 07-06-2022 Episodic Other aftercare (1 source) filler shredder machine (current) use of aspirin; Translations: [PRISON CURRENT USE OF ASPIRIN] Onset: 06-20-2022 Episodic [...] DEPEND] Onset: 05-19-2022 Episodic Unclassified (1 source) Other pericardial effusion (noninflammatory); Translations: [Other pericardial effusion (noninflammatory)] Onset: 05-13-2024 Unclassified (1 source) Encounter for other preprocedural examination; Translations: [Encounter for other preprocedural examination] Onset: 01-16-2024 Unclassified (1 source) Encounter for aftercare following other organ transplant; Translations: [Encounter for aftercare following other organ transplant] Onset: 08-28-2023 Unclassified (1 source) Other usp (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; Translations: [Other media librarian (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] Onset: 08-28-2023 Unclassified (1 source) Hypertension secondary to other renal disorders; Translations: [Hypertension secondary to other renal disorders] Onset: 08-28-2023 Results Test Name Value Interpretation Reference Range Facility Office Visiton 05-13-2024 Follow-up visit [id number] George Styles 1970 M Date Provider Department Center 05/13/2024 JúniorMIGUEL CARDONA [facility] Family History Problem Relation Age of Onset Coronary artery disease Mother Coronary artery disease Father Family Status - Relation Status Age at Mother Father Level of Service:27834 [place] OFFICE/OUTPATIENT ESTABLISHED LOW MDM 20 MIN Reason for Visit and Comments: Follow-up [190871] - Yearly follow up Normal [facility] B-TYPE NATRIURETIC PEPTIDE ( BRAIN)on 02-26-2024 Interpretation and review of laboratory results Normal [facility] Natriuretic peptide B (Bld) [Mass/Vol] 72 pg/mL 0 - 100 pg/mL [facility] Natriuretic peptide B (Bld) [Mass/Vol] 72 pg/mL Normal 0-100 [facility] Comment on above: Performed By: #### B USER EXPERIENCE DEVELOPER ####[facility] (DEFAULT)[address] [place] [address] CHEM 6 (LYTES, BUN CREA)on 0 02-26-2024 Anion gap [Moles/Vol] 13 mmol/L 7 - 17 mmol/L [facility] Chloride [Moles/Vol] 107 mmol/L 98 - 10 8 mmol/L [facility] CO2 [Moles/Vol] 25 mmol/L 21 - 31 mmol/L [facility] Creatinine [Mass/Vol] 1.23 mg/dL 0.70 - 1.30 mg/dL [facility] eGFR, CKD-EPI, Male 70 - PINF [facility] Comment on above: Reported eGFR is bas ed on the CKD-EPI 2020 equation using creatinine, age, and sex. Potassium [Moles/Vol] 4.2 mmol/L 3.5 - 5.0 mmol/L [facility] Sodium [Moles/Vol] 141 mmol/L 135 - 145 mmol/L [facility] Urea nitrogen [Mass/Vol] 17 mg/dL 7 - 25 mg/dL [facility] Urea nitrogen/Creatinine [Mass ratio] 14 mg/mg [facility] Anion gap [Moles/Vol] 13 mmol/L Normal 7-17 [facility] Comment on above: Performed By: #### C HM6 ####[facility] (DEFAULT)[address] [place] [address] Chloride [Moles/Vol] 107 mmol/L Normal 98-108 [facility] Comment on above: Performed By: #### C HM6 ####[facility] (DEFAULT)[address] [facility] [place] [address] CO2 [Moles/Vol] 25 mmol/L Normal 21-31 [facility] Comment on above: Performed By: #### C HM6 ####[facility] (DEFAULT)[address] [place] [address], [place] [address] Creatinine [Mass/Vol] 1.23 mg/dL Normal 0.70-1.30 [facility] Comment on above: Performed By: #### C HM6 ####[facility] (DEFAULT)[address] [place] [address], [place] [address] GFR/1.73 sq M.predicted among non-blacks MDRD (S/P/Bld) [Vol rate/Area] 70 mL/min/{1.73_m2} Normal >=60 [facility] Comment on above: Result Comment: Repo rted eGFR is based on the CKD-EPI 2020 equation using creatinine, age, and sex. Performed By: #### C HM6 ####[facility] (DEFAULT)[address] [place] [address], [place] [address] Potassium [Moles/Vol] 4.2 mmol/L Normal 3.5-5.0 [facility] Comment on above: Performed By: #### C HM6 ####[facility] (DEFAULT)[address] [place] [address], [place] [address] Sodium [Moles/Vol] 141 mmol/L Normal 135-145 [facility] Comment on above: Performed By: #### C HM6 ####[facility] (DEFAULT)[address] [place] [address], [place] [address] Urea nitrogen [Mass/Vol] 17 mg/dL Normal 7-25 [facility] Comment on above: Performed By: #### C HM6 ####[facility] (DEFAULT)[address] [place] [address] Urea nitrogen/Creatinine [Mass ratio] 14 mg/mg Normal [facility] Comment on above: Performed By: #### C HM6 ####[facility] (DEFAULT)[address] [place] [address] CBC,PLATELETSon 01-23-2024 Erythrocyte distribution width (RBC) [Ratio] [...] Center RBC (Bld) [#/Vol] 4.20 10*6/uL [facility] WBC (Bld) [#/Vol] 3.70 10*3/uL Low 3.73 - 10. 10 K/uL [facility] Hematocrit (Bld) [Volume fraction] 37.0 % Low 39.6-48.8 [facility] Comment on above: Performed By: #### H EMO ####[facility] (DEFAULT)[address] [place] [address] Hemoglobin (Bld) [Mass/Vol] 12.0 g/dL Low 13.4-16.8 [facility] Comment on above: Performed By: #### H EMOGC ####[facility] (DEFAULT)[address] [place] [address] MCV (RBC) [Entitic vol] 88.1 fL Normal 79.0-94.5 [facility] Comment on above: Performed By: #### H EMOGC ####[facility] (DEFAULT)[address] [place] [address] Mean Cell Hgb 28.6 pg Normal 26.1-33.3 [facility] Comment on above: Performed By: #### H EMOGC ####[facility] (DEFAULT)[address] [facility] [place] [address] Mean Cell Hgb Conc 32.4 g/dL Normal 31.9-36.5 [facility] Comment on above: Performed By: #### H EMOGC ####[facility] (DEFAULT)[address] [facility] [place] [address] Platelet mean volume (Bld) [Entitic vol] 10.4 fL Normal 8.7-12.3 [facility] Comment on above: Performed By: #### H EMOGC ####[facility] (DEFAULT)[address] [place] [address] Platelets (Bld) [#/Vol] 170 10*3/uL Normal 146-337 [facility] Comment on above: Performed By: #### H EMOGC ####[facility] (DEFAULT)[address] [facility] [place] [address] RBC (Bld) [#/Vol] 4.20 10*6/uL Low 4.38-5.83 [facility] Comment on above: Performed By: #### H EMOGC ####[facility] (DEFAULT)[address] [facility] [address] RBC Distribution 14.2 % Normal 10.9-14.3 [facility] Comment on above: Performed By: #### H [facility] ####[facility] (DEFAULT)[address] [place] [address] WBC (Bld) [#/Vol] 3.70 10*3/uL Low 3.73-10.10 [facility] Comment on above: Performed By: #### H [facility] ####[facility] (DEFAULT)[address] [place] [address] CHEM 7 (LYTES,BUN,CREA,GLUC) on 01-23-2024 Anion gap [...] Center eGFR, CKD-EPI, Male 65 - PINF [facility] Comment on above: Reported eGFR [...] [Moles/Vol] 14 mmol/L Normal 7-17 [facility] Comment on above: Performed By: #### M GO, CHM7, HFP ####[facility] (DEFAULT)[address] [place] [address] Chloride [Moles/Vol] 105 mmol/L Normal 98-108 [facility] Comment on above: Performed By: #### NATHANIEL RAMÍREZ, HFP ####[facility] (DEFAULT)[address] [facility] [place] [address] CO2 [Moles/Vol] 25 mmol/L Normal 21-31 [facility] Comment on above: Performed By: #### NATHANIEL RAMÍREZ, HFP ####[facility] (DEFAULT)[address] [facility] [place] [address] Creatinine [Mass/Vol] 1.32 mg/dL High 0.70-1.30 [facility] Comment on above: Performed By: #### NATHANIEL RAMÍREZ, HFP ####[facility] (DEFAULT)[address] [facility] [place] [address] GFR/1.73 sq M.predicted among non-blacks MDRD (S/P/Bld) [Vol rate/Area] 65 mL/min/{1.73_m2} Normal >=60 [facility] Comment on above: Result Comment: Repo rted eGFR is based on the CKD-EPI 2020 equation using creatinine, age, and sex. Performed By: #### NATHANIEL RAMÍREZ, HFP ####[facility] (DEFAULT)[address] [facility] [address] Glucose [Mass/Vol] 94 mg/dL Normal 70-99 [facility] Comment on above: Performed By: #### NATHANIEL RAMÍREZ, HFP ####[facility] (DEFAULT)[address] [place] [address] Osmolality [Osmolality] 296 mosm/kg Normal 278-305 [facility] Comment on above: Performed By: #### NATHANIEL RAMÍREZ, HFP ####[facility] (DEFAULT)[address] [facility] [address] Potassium [Moles/Vol] 3.8 mmol/L Normal 3.5-5.0 [facility] Comment on above: Performed By: #### M HELEN BLOOMM7, HFP ####[facility] (DEFAULT)[address] [place] [address] Sodium [Moles/Vol] 140 mmol/L Normal 135-145 [facility] Comment on above: Performed By: #### Rod BLOOM CHM7, HFP ####[facility] (DEFAULT)[address] [facility] [place] [address] Urea nitrogen [Mass/Vol] 23 mg/dL Normal 7-25 [facility] Comment on above: Performed By: #### Rod BLOOM CHM7, HFP ####[facility] (DEFAULT)[address] [facility] [place] [address] Urea nitrogen/Creatinine [Mass ratio] 17 mg/mg Normal [facility] Comment on above: Performed By: #### TJ RAMÍREZ7, HFP ####[facility] (DEFAULT)[address] [facility] [address] GLUCOSE POCon 01-23-2024 Glucose [Mass/Vol] 88 mg/dL 70 - 99 mg/dL [facility] POC [facility] Test performed at ad dress of the patient encounter. [facility] Glucose [Mass/Vol] 191 mg/dL High 70 - 99 mg/dL [facility] Interpretation and review of laboratory results Abnormal [facility] POC Sample Type [facility] Test performed at ad dress of the patient encounter. [facility] HEPATIC FUNCTION PANELon Albumin [Mass/Vol] 3.9 g/dL [...] [facility] Albumin [Mass/Vol] 3.9 g/dL Normal 3.5-5.0 [facility] Comment on above: Performed By: #### M MERLE CHM7, HFP ####[facility] (DEFAULT)[address] [place] [address] ALP [Catalytic activity/Vol] 83 U/L Normal 32-126 [facility] Comment on above: Performed By: #### M MERLE CHM7, HFP ####[facility] (DEFAULT)[address] [facility] [place] [address] ALT [Catalytic activity/Vol] 9 U/L Low 10-52 [facility] Comment on above: Performed By: #### M MERLE CHM7, HFP ####[facility] (DEFAULT)[address] [place] [address] AST [Catalytic activity/Vol] 17 U/L Normal 10-39 [facility] Comment on above: Performed By: #### M MERLE CHM7, HFP ####[facility] (DEFAULT)[address] [place] [address] Bilirubin [Mass/Vol] 1.6 mg/dL High <1.5 [facility] Comment on above: Performed By: #### M MERLE CHM7, HFP ####[facility] (DEFAULT)[address] [place] [address] Bilirubin.indirect [Mass/Vol] 0.4 mg/dL High <0.3 [facility] Comment on above: Performed By: #### M MERLE CHM7, HFP ####[facility] (DEFAULT)[address] [place] [address] Protein [Mass/Vol] 6.6 g/dL Normal 6.4-8.3 [facility] Comment on above: Performed By: #### Rod BLOOM, CHM7, [facility] ####[facility] (DEFAULT)[address] [place] [address] ITRACONAZOLE LEVELon 024 Hydroxyitraconazole [Mass/Vol] 7.6 mcg/mL [facility] Comment on above: REFERENCE VALUE No therapeutic range established; activity and serum concentration are similar to parent drug. ADDITIONAL INFORMATION This test was developed and its performance characteristics determined by [facility] in a manner consistent with CLIA requirements. This test has not been cleared or approved by the U.S. Food and Drug Administration. Test Performed by: [facility] - [address] [address] Propellant Charge Loader: Rosendo Bose M.D. Ph.D.; CLIA# [id number] Itraconazole [Mass/Vol] 6.0 mcg/mL [facility] Comment on above: REFERENCE VALUE >0.5 (localized infection), >1.0 (systemic infection) [facility] MAGNESIUMon 01-23-2024 Interpretation and review of laboratory results Normal [facility] Magnesium [Mass/Vol] 1.8 mg/dL 1.6 - 2 .6 mg/dL [facility] Magnesium [Mass/Vol] 1.8 mg/dL Normal 1.6-2.6 [facility] Comment on above: Performed By: #### M GO, CHM7, HFP ####[facility] (DEFAULT)[address] [place] [address] No Panel Informationon 01-23 Interpretation and review of laboratory results Abnormal [facility] TACROLIMUS LEVEL, TROUGH (WI E DRUG LEVEL)on 01-23-2024 Interpretation and review of laboratory results Normal [facility] Tacrolimus (Bld) [Mass/Vol] 7.0 ng/mL Bone Marrow Transplant: 4.0-12.0, Therapeutic: 5.0-15.0 [facility] Method performed is a chemiluminescent microparticle immunoasssay on the [employer] i2000. The range is based on experience at [facility] and users should be aware that target concentrations vary widely depending on concomitant therapy, time post-transplant, and desired degree of immunosuppression. [facility] Tacrolimus, Trough 7.0 ng/mL Normal Bone Susana ow Transplant: 4.0-12.0, Therapeutic: 5.0-15.0 [facility] Comment on above: Order Comment: Pleas e draw at specified interval PRIOR to dose. Do not hold dose to wait for level. Specimens batched twice per day, (M-F) and once per day weekendsMethod performed is a chemiluminescent microparticle immunoasssay on the [employer] i2000.The range is based on experience at [facility] and users should be aware that target concentrations vary widely depending on concomitant therapy, time post-transplant, and desired degree of immunosuppression. Performed By: #### T ACRO ####[facility] (DEFAULT)[address] [place] [address] CARDIAC RHYTHM (SCANNED)on 0 01-22-2024 [facility] CBC,PLATELETSon 01-22-2024 Erythrocyte distribution width [...] Medical Center RBC (Bld) [#/Vol] 4.78 10*6/uL [facility] WBC (Bld) [#/Vol] 3.74 10*3/uL 3.73 - 10. 10 K/uL [facility] Hematocrit (Bld) [Volume fraction] 41.5 % Normal 39.6-48.8 [facility] Comment on above: Performed By: #### H [facility] ####[facility] (DEFAULT)[address] [place] [address] Hemoglobin (Bld) [Mass/Vol] 13.3 g/dL Low 13.4-16.8 [facility] Comment on above: Performed By: #### H EMO ####[facility] (DEFAULT)[address] [place] [address] MCV (RBC) [Entitic vol] 86.8 fL Normal 79.0-94.5 [facility] Comment on above: Performed By: #### H EMO ####[facility] (DEFAULT)[address] [place] [address] Mean Cell Hgb 27.8 pg Normal 26.1-33.3 [facility] Comment on above: Performed By: #### H EMO ####[facility] [facility] (DEFAULT)[address] [place] [address] Mean Cell Hgb Conc 32.0 g/dL Normal 31.9-36.5 [facility] Comment on above: Performed By: #### H EMOGC ####[facility] (DEFAULT)[address] [facility] [place] [address] Platelet mean volume (Bld) [Entitic vol] 10.5 fL Normal 8.7-12.3 [facility] Comment on above: Performed By: #### H EMO ####[facility] (DEFAULT)[address] [place] [address] Platelets (Bld) [#/Vol] 186 10*3/uL Normal 146-337 [facility] Comment on above: Performed By: #### H EMO ####[facility] (DEFAULT)[address] [place] [address] RBC (Bld) [#/Vol] 4.78 10*6/uL Normal 4.38-5.83 [facility] Comment on above: Performed By: #### H EMO ####[facility] (DEFAULT)[address] [place] [address] RBC Distribution 14.1 % Normal 10.9-14.3 [facility] Comment on above: Performed By: #### H EMOGC ####[facility] (DEFAULT)[address] [place] [address] WBC (Bld) [#/Vol] 3.74 10*3/uL Normal 3.73-10.10 [facility] Comment on above: Performed By: #### H EMOGC ####[facility] (DEFAULT)[address] [place] [address] CHEM 7 (LYTES,BUN,CREA,GLUC) on 01-22-2024 Anion gap [...] Center eGFR, CKD-EPI, Male 81 - PINF [facility] Comment on above: Reported eGFR [...] [facility] Anion gap [Moles/Vol] 13 mmol/L Normal 7-17 [facility] Comment on above: Performed By: #### NATHANIEL RAMÍREZ ####[facility] (DEFAULT)[address] [place] [address] Chloride [Moles/Vol] 109 mmol/L High 98-108 [facility] Comment on above: Performed By: #### NATHANIEL RAMÍREZ ####[facility] (DEFAULT)[address] [place] [address] CO2 [Moles/Vol] 23 mmol/L Normal 21-31 [facility] Comment on above: Performed By: #### NATHANIEL RAMÍREZ ####[facility] (DEFAULT)[address] [place] [address] Creatinine [Mass/Vol] 1.10 mg/dL Normal 0.70-1.30 [facility] Comment on above: Performed By: #### M GO, CHM7 ####[facility] (DEFAULT)[address] [place] [address] GFR/1.73 sq M.predicted among non-blacks MDRD (S/P/Bld) [Vol rate/Area] 81 mL/min/{1.73_m2} Normal >=60 [facility] Comment on above: Result Comment: Repo rted eGFR is based on the CKD-EPI 2020 equation using creatinine, age, and sex. Performed By: #### Rod BLOOM CHM7 ####[facility] (DEFAULT)[address] [place] [address] Glucose [Mass/Vol] 84 mg/dL Normal 70-99 [facility] Comment on above: Performed By: #### Rod BLOOM CHM7 ####[facility] (DEFAULT)[address] [place] [address] Osmolality [Osmolality] 295 mosm/kg Normal 278-305 [facility] Comment on above: Performed By: #### Rod BLOOM CHM7 ####[facility] (DEFAULT)[address] [place] [address] Potassium [Moles/Vol] 4.0 mmol/L Normal 3.5-5.0 [facility] Comment on above: Performed By: #### Rod BOLOM CHM7 ####[facility] (DEFAULT)[address] [place] [address] Sodium [Moles/Vol] 141 mmol/L Normal 135-145 [facility] Comment on above: Performed By: #### Rod BLOOM CHM7 ####[facility] (DEFAULT)[address] [place] [address] Urea nitrogen [Mass/Vol] 16 mg/dL Normal 7-25 [facility] Comment on above: Performed By: #### Rod BLOOM CHM7 ####[facility] (DEFAULT)[address] [place] [address] Urea nitrogen/Creatinine [Mass ratio] 15 mg/mg Normal [facility] Comment on above: Performed By: #### Rod BLOOM CHM7 ####[facility] (DEFAULT)[address] [place] [address] MAGNESIUMon 01-22-2024 Interpretation and review of laboratory results Normal [facility] Magnesium [Mass/Vol] 2.0 mg/dL 1.6 - 2 .6 mg/dL [facility] Magnesium [Mass/Vol] 2.0 mg/dL Normal 1.6-2.6 [facility] Comment on above: Performed By: #### TJ RAMÍREZ7 ####[facility] (DEFAULT)[address] [place] [address] No Panel Informationon 01-22 [facility] PT,INR,PTTon 01-22-2024 aPTT Coag (PPP) [Time] 29.2 s [facility] INR Coag (Bld) [Relative time] 1.1 {INR} 0.9 - 1.1 [facility] Interpretation and review of laboratory results Abnormal [facility] PT Coag (PPP) [Time] 14.3 s High [facility] aPTT Coag (Bld) [Time] 29.2 s Normal 24.0-34.3 [facility] Comment on above: Performed By: #### P TPTT ####[facility] (DEFAULT)[address] [place] [address] INR Coag (PPP) [Relative time] 1.1 {INR} Normal 0.9-1.1 [facility] Comment on above: Performed By: #### P TPTT ####[facility] (DEFAULT)[address] [place] [address] PT Coag (PPP) [Time] 14.3 s High 11.9-14.2 [facility] Comment on above: Performed By: #### P TPTT ####[facility] (DEFAULT)[address] [place] [address] TACROLIMUS LEVEL, TROUGH (WI E DRUG LEVEL)Ordered By: Sheree Jensen on 01-22-2024 Interpretation and review of laboratory results Normal [facility] Tacrolimus (Bld) [Mass/Vol] 7.9 ng/mL Bone Marrow Transplant: 4.0-12.0, Therapeutic: 5.0-15.0 [facility] Method performed is a chemiluminescent microparticle immunoasssay on the [employer] i2000. The range is based on experience at [facility] and users should be aware that target concentrations vary widely depending on concomitant therapy, time post-transplant, and desired degree of immunosuppression. [facility] TACROLIMUS LEVEL, TROUGH (WI E DRUG LEVEL)on 01-22-2024 Tacrolimus, Trough 7.9 ng/mL Normal Bone Susana ow Transplant: 4.0-12.0, Therapeutic: 5.0-15.0 [facility] Comment on above: Order Comment: Pleas e draw at specified interval PRIOR to dose. Do not hold dose to wait for level. Specimens batched twice per day, (M-F) and once per day weekendsMethod performed is a chemiluminescent microparticle immunoasssay on the [employer] i2000.The range is based on experience at [facility] and users should be aware that target concentrations vary widely depending on concomitant therapy, time post-transplant, and desired degree of immunosuppression. Performed By: #### T ACRO ####[facility] (DEFAULT)[address] [place] [address] TYPE AND SCREENon 01-22-2024 ABO/RH(D) TYPE Positive [facility] ABO/RH(D) TYPE Positive Normal [facility] Comment on above: Performed By: #### X M ####[facility] (DEFAULT)[address] [place] [address] [place] Unspecified body regionOr dered By: Unassigned Pacs on 01-22-2024 [facility] Work Phone: [place] Unspecified body regionon 01-22-2024 Radiology Study observation (narrative) [facility] CBC,PLATELETSon 01-21-2024 Erythrocyte distribution width (RBC) [...] [facility] Center RBC (Bld) [#/Vol] 4.53 10*6/uL [facility] WBC (Bld) [#/Vol] 3.42 10*3/uL Low 3.73 - 10. 10 K/uL [facility] Hematocrit (Bld) [Volume fraction] 39.4 % Low 39.6-48.8 [facility] Comment on above: Performed By: #### H [facility] ####[facility] (DEFAULT)[address] [place] [address] Hemoglobin (Bld) [Mass/Vol] 12.7 g/dL Low 13.4-16.8 [facility] Comment on above: Performed By: #### H [facility] ####[facility] (DEFAULT)[address] [place] [address] MCV (RBC) [Entitic vol] 87.0 fL Normal 79.0-94.5 [facility] Comment on above: Performed By: #### H EMOGC ####[facility] (DEFAULT)[address] [place] [address] Mean Cell Hgb 28.0 pg Normal 26.1-33.3 [facility] Comment on above: Performed By: #### H EMOGC ####[facility] (DEFAULT)[address] [facility] [place] [address] Mean Cell Hgb Conc 32.2 g/dL Normal 31.9-36.5 [facility] Comment on above: Performed By: #### H EMOGC ####[facility] (DEFAULT)[address] [facility] [place] [address] Platelet mean volume (Bld) [Entitic vol] 10.2 fL Normal 8.7-12.3 [facility] Comment on above: Performed By: #### H EMOGC ####[facility] (DEFAULT)[address] [facility] [address] Platelets (Bld) [#/Vol] 157 10*3/uL Normal 146-337 [facility] Comment on above: Performed By: #### H EMOGC ####[facility] (DEFAULT)[address] [facility] [address] RBC (Bld) [#/Vol] 4.53 10*6/uL Normal 4.38-5.83 [facility] Comment on above: Performed By: #### H EMOGC ####[facility] (DEFAULT)[address] [facility] [address] RBC Distribution 14.0 % Normal 10.9-14.3 [facility] Comment on above: Performed By: #### H EMOGC ####[facility] (DEFAULT)[address] [facility] [address] WBC (Bld) [#/Vol] 3.42 10*3/uL Low 3.73-10.10 [facility] Comment on above: Performed By: #### H [facility] ####[facility] (DEFAULT)[address] [place] [address] CHEM 7 (LYTES,BUN,CREA,GLUC) on 01-21-2024 Anion gap [...] Center eGFR, CKD-EPI, Male 80 - PINF [facility] Comment on above: Reported eGFR [...] [facility] Anion gap [Moles/Vol] 12 mmol/L Normal 7-17 [facility] Comment on above: Performed By: #### Rod BLOOM CHM7 ####[facility] (DEFAULT)[address] [place] [address] Chloride [Moles/Vol] 107 mmol/L Normal 98-108 [facility] Comment on above: Performed By: #### Rod BLOOM CHM7 ####[facility] (DEFAULT)[address] [place] [address] CO2 [Moles/Vol] 26 mmol/L Normal 21-31 [facility] Comment on above: Performed By: #### NATHANIEL RAMÍREZ ####[facility] (DEFAULT)[address] [facility] [place] [address] Creatinine [Mass/Vol] 1.11 mg/dL Normal 0.70-1.30 [facility] Comment on above: Performed By: #### TJ RAMÍREZ7 ####[facility] (DEFAULT)[address] [place] [address], [place] [address] GFR/1.73 sq M.predicted among non-blacks MDRD (S/P/Bld) [Vol rate/Area] 80 mL/min/{1.73_m2} Normal >=60 [facility] Comment on above: Result Comment: Repo rted eGFR is based on the CKD-EPI 2020 equation using creatinine, age, and sex. Performed By: #### NATHANIEL RAMÍREZ ####[facility] (DEFAULT)[address] [place] [address] Glucose [Mass/Vol] 93 mg/dL Normal 70-99 [facility] Comment on above: Performed By: #### NATHANIEL RAMÍREZ ####[facility] (DEFAULT)[address] [place] [address] Osmolality [Osmolality] 295 mosm/kg Normal 278-305 [facility] Comment on above: Performed By: #### NATHANIEL RAMÍREZ ####[facility] (DEFAULT)[address] [place] [address] Potassium [Moles/Vol] 3.9 mmol/L Normal 3.5-5.0 [facility] Comment on above: Performed By: #### NATHANIEL RAMÍREZ ####[facility] (DEFAULT)[address] [facility] [place] [address] Sodium [Moles/Vol] 141 mmol/L Normal 135-145 [facility] Comment on above: Performed By: #### NATHANIEL RAMÍREZ ####[facility] (DEFAULT)[address] [place] [address] Urea nitrogen [Mass/Vol] 15 mg/dL Normal - [facility] Comment on above: Performed By: #### M MERLE CHM7 ####[facility] (DEFAULT)[address] [place] [address] Urea nitrogen/Creatinine [Mass ratio] 14 mg/mg Normal [facility] Comment on above: Performed By: #### M MERLE CHM7 ####[facility] (DEFAULT)[address] [place] [address] Cardiac catheterization stud yOrdered By: Kelvin Donohue [...] with fistula occlusion Kelvin Donohue MD, MPH [employer]. Section of Advanced Heart Failure and Transplantation Division of Cardiovascular Diseases [facility] [email or web address] INVASIVE CARDIOVASCULAR PROC EDUREon 01-21-2024 INVASIVE CARDIOVASCULAR PROCEDURE Normal [facility] MAGNESIUMon 01-21-2024 Interpretation and review of laboratory results Abnormal [facility] Magnesium [Mass/Vol] 1.5 mg/dL Low 1.6 - 2 .6 mg/dL [facility] Magnesium [Mass/Vol] 1.5 mg/dL Low 1.6-2.6 [facility] Comment on above: Performed By: #### M GO, [facility] ####[facility] (DEFAULT)[address] [place] [address] No Panel Informationon 01-21 [facility] TACROLIMUS LEVEL, TROUGH (WI E DRUG LEVEL)on 01-21-2024 Interpretation and review of laboratory results Normal [facility] Tacrolimus (Bld) [Mass/Vol] 7.2 ng/mL Bone Marrow Transplant: 4.0-12.0, Therapeutic: 5.0-15.0 [facility] Method performed is a chemiluminescent microparticle immunoasssay on the [employer] i2000. The range is based on experience at [facility] and users should be aware that target concentrations vary widely depending on concomitant therapy, time post-transplant, and desired degree of immunosuppression. [facility] Tacrolimus, Trough 7.2 ng/mL Normal Bone Susana ow Transplant: 4.0-12.0, Therapeutic: 5.0-15.0 [facility] Comment on above: Order Comment: Pleas e draw at specified interval PRIOR to dose. Do not hold dose to wait for level. Specimens batched twice per day, (M-F) and once per day weekendsMethod performed is a chemiluminescent microparticle immunoasssay on the [employer] i2000.The range is based on experience at [facility] and users should be aware that target concentrations vary widely depending on concomitant therapy, time post-transplant, and desired degree of immunosuppression. Performed By: #### T ACRO ####[facility] (DEFAULT)[address] [place] [address] CBC,PLATELETSon 01-20-2024 Erythrocyte distribution width (RBC) [Ratio] [...] [facility] Center RBC (Bld) [#/Vol] 4.46 10*6/uL [facility] WBC (Bld) [#/Vol] 3.79 10*3/uL 3.73 - 10. 10 K/uL [facility] Hematocrit (Bld) [Volume fraction] 38.9 % Low 39.6-48.8 [facility] Comment on above: Performed By: #### H [facility] ####[facility] (DEFAULT)[address] [place] [address] Hemoglobin (Bld) [Mass/Vol] 12.5 g/dL Low 13.4-16.8 [facility] Comment on above: Performed By: #### H [facility] ####[facility] (DEFAULT)[address] [place] [address] MCV (RBC) [Entitic vol] 87.2 fL Normal 79.0-94.5 [facility] Comment on above: Performed By: #### H EMOGC ####[facility] (DEFAULT)[address] [place] [address] Mean Cell Hgb 28.0 pg Normal 26.1-33.3 [facility] Comment on above: Performed By: #### H EMOGC ####[facility] (DEFAULT)[address] [place] [address] Mean Cell Hgb Conc 32.1 g/dL Normal 31.9-36.5 [facility] Comment on above: Performed By: #### H EMOGC ####[facility] (DEFAULT)[address] [facility] [place] [address] Platelet mean volume (Bld) [Entitic vol] 10.2 fL Normal 8.7-12.3 [facility] Comment on above: Performed By: #### H EMOGC ####[facility] (DEFAULT)[address] [facility] [place] [address] Platelets (Bld) [#/Vol] 166 10*3/uL Normal 146-337 [facility] Comment on above: Performed By: #### H EMOGC ####[facility] (DEFAULT)[address] [facility] [place] [address] RBC (Bld) [#/Vol] 4.46 10*6/uL Normal 4.38-5.83 [facility] Comment on above: Performed By: #### H EMOGC ####[facility] (DEFAULT)[address] [facility] [place] [address] RBC Distribution 13.8 % Normal 10.9-14.3 [facility] Comment on above: Performed By: #### H EMOGC ####[facility] (DEFAULT)[address] [facility] [address] WBC (Bld) [#/Vol] 3.79 10*3/uL Normal 3.73-10.10 [facility] Comment on above: Performed By: #### H EMOGC ####[facility] (DEFAULT)[address] [place] [address] CHEM 7 (LYTES,BUN,CREA,GLUC) on 01-20-2024 Anion gap [Moles/Vol] 12 mmol/L 7 - 17 mmol/L [facility] Chloride [Moles/Vol] 105 mmol/L 98 - 10 8 mmol/L [facility] CO2 [Moles/Vol] 28 mmol/L 21 - 31 mmol/L [facility] Creatinine [Mass/Vol] 1.12 mg/dL 0.70 - 1.30 mg/dL [facility] eGFR, CKD-EPI, Male 79 - PINF [facility] Comment on above: Reported eGFR [...] [facility] Anion gap [Moles/Vol] 12 mmol/L Normal 7-17 [facility] Comment on above: Performed By: #### TAVO RAMÍREZ CHM7 ####[facility] (DEFAULT)[address] [place] [address] Chloride [Moles/Vol] 105 mmol/L Normal 98-108 [facility] Comment on above: Performed By: #### TAVO RAMÍREZ CHM7 ####[facility] (DEFAULT)[address] [place] [address] CO2 [Moles/Vol] 28 mmol/L Normal 21-31 [facility] Comment on above: Performed By: #### M TAVO BLOOM CHM7 ####[facility] (DEFAULT)[address] [place] [address] Creatinine [Mass/Vol] 1.12 mg/dL Normal 0.70-1.30 [facility] Comment on above: Performed By: #### TAVO RAMÍREZ, CHM7 ####[facility] (DEFAULT)[address] [place] [address] GFR/1.73 sq M.predicted among non-blacks MDRD (S/P/Bld) [Vol rate/Area] 79 mL/min/{1.73_m2} Normal >=60 [facility] Comment on above: Result Comment: Repo rted eGFR is based on the CKD-EPI 2020 equation using creatinine, age, and sex. Performed By: #### TAVO RAMÍREZ, CHM7 ####[facility] (DEFAULT)[address] [facility] [place] [address] Glucose [Mass/Vol] 88 mg/dL Normal 70-99 [facility] Comment on above: Performed By: #### TAVO RAMÍREZ, CHM7 ####[facility] (DEFAULT)[address] [facility] [place] [address] Osmolality [Osmolality] 294 mosm/kg Normal 278-305 [facility] Comment on above: Performed By: #### TAVO RAMÍREZ, CHM7 ####[facility] (DEFAULT)[address] [facility] [place] [address] Potassium [Moles/Vol] 3.8 mmol/L Normal 3.5-5.0 [facility] Comment on above: Performed By: #### TAVO RAMÍREZ, CHM7 ####[facility] (DEFAULT)[address] [place] [address] Sodium [Moles/Vol] 141 mmol/L Normal 135-145 [facility] Comment on above: Performed By: #### TAVO RAMÍREZ, CHM7 ####[facility] (DEFAULT)[address] [place] [address] Urea nitrogen [Mass/Vol] 15 mg/dL Normal 7-25 [facility] Comment on above: Performed By: #### M TAVO BLOOM CHM7 ####[facility] (DEFAULT)[address] [place] [address] Urea nitrogen/Creatinine [Mass ratio] 13 mg/mg Normal [facility] Comment on above: Performed By: #### M TAVO BLOOM CHM7 ####[facility] (DEFAULT)[address] [place] [address] Cardiac catheterization stud yon 01-20-2024 [facility] Radiology Study observation (narrative) [facility] Radiology Study observation (narrative) [facility] EBV BY PCR, QUANTITATIVE,BLO ODOrdered By: Charlotte Jensen on 01-20-2024 EBV DNA ESTELITA+probe (Unsp spec) [#/Vol] EUNICE [facility] Interpretation [...] Clinical Microbiology Laboratory at [facility]. It has not been cleared or approved by the FDA. The laboratory is regulated under CLIA as qualified to perform high-complexity testing. This test is used for clinical purposes. It should not be regarded as investigational or for research. [facility] HEPATIC FUNCTION PANELon Albumin [Mass/Vol] 3.7 g/dL [...] [facility] Albumin [Mass/Vol] 3.7 g/dL Normal 3.5-5.0 [facility] Comment on above: Performed By: #### M TAVO BLOOM, CHM7 ####[facility] (DEFAULT)[address] [place] [address] ALP [Catalytic activity/Vol] 73 U/L Normal 32-126 [facility] Comment on above: Performed By: #### TAVO RAMÍREZ, CHM7 ####[facility] (DEFAULT)[address] [place] [address] ALT [Catalytic activity/Vol] 12 U/L Normal 10-52 [facility] Comment on above: Performed By: #### TAVO RAMÍREZ, CHM7 ####[facility] (DEFAULT)[address] [place] [address] AST [Catalytic activity/Vol] 19 U/L Normal 10-39 [facility] Comment on above: Performed By: #### TAVO RAMÍREZ, CHM7 ####[facility] (DEFAULT)[address] [place] [address] Bilirubin [Mass/Vol] 2.1 mg/dL High <1.5 [facility] Comment on above: Performed By: #### TAVO RAMÍREZ, CHM7 ####[facility] (DEFAULT)[address] [place] [address] Bilirubin.indirect [Mass/Vol] 0.5 mg/dL High <0.3 [facility] Comment on above: Performed By: #### TAVO RAMÍREZ, CHM7 ####[facility] (DEFAULT)[address] [place] [address] Protein [Mass/Vol] 6.1 g/dL Low 6.4-8.3 [facility] Comment on above: Performed By: #### M TAVO BLOOM, CHM7 ####[facility] (DEFAULT)[address] [place] [address] ITRACONAZOLE LEVELon 024 Hydroxyitraconazole 7.6 mcg/mL Normal [facility] Comment on above: Order Comment: Pleas e draw level at specified interval PRIOR to dose. Result Comment: ---- REFERENCE VALUE No therapeutic range established; activity and serumconcentration are similar to parent drug. ADDITIONAL INFORMATION This test was developed and its performance characteristicsdetermined by [facility] in a manner consistent with CLIArequirements. This test has not been cleared or approved bythe U.S. Food and Drug Administration.Test Performed by:[address] [address]Dym Director: Rosendo Bose M.D. Ph.D.; CLIA# [id number] Performed By: #### Y ITCON ####[facility] (DEFAULT)[address] [place] [address], [place] [address] Itraconazole 6.0 mcg/mL Normal [facility] Comment on above: Order Comment: Pleas e draw level at specified interval PRIOR to dose. Result Comment: ---- REFERENCE VALUE-------------------------->0.5 (localized infection), >1.0 (systemic infection) Performed By: #### Y ITCON ####[facility] (DEFAULT)[address] [place] [address] MAGNESIUMon 01-20-2024 Interpretation and review of laboratory results Normal [facility] Magnesium [Mass/Vol] 1.6 mg/dL 1.6 - 2 .6 mg/dL [facility] Magnesium [Mass/Vol] 1.6 mg/dL Normal 1.6-2.6 [facility] Comment on above: Performed By: #### M GO, [facility], CHM7 ####[facility] (DEFAULT)[address] [place] [address] No Panel Informationon 01-20 [facility] [...] performed at address of the patient encounter. [facility] Hemoglobin (Bld) [Mass/Vol] 13.3 g/dL Low 13.4 - 16.8 g/dL [facility] Interpretation and review of laboratory results Abnormal [facility] Oxyhemoglobin 69 % Low 94 - 98 % [facility] Ordering physician notified. Test performed at address of the patient encounter. [facility] PT,INR,PTTon 01-20-2024 aPTT Coag (PPP) [Time] 30.6 s [facility] INR Coag (Bld) [Relative time] 1.2 {INR} High 0.9 - 1.1 [facility] Interpretation and review of laboratory results Abnormal [facility] PT Coag (PPP) [Time] 15.5 s High [facility] aPTT Coag (Bld) [Time] 30.6 s Normal 24.0-34.3 [facility] Comment on above: Performed By: #### P TPTT ####[facility] (DEFAULT)[address] [place] [address] INR Coag (PPP) [Relative time] 1.2 {INR} High 0.9-1.1 [facility] Comment on above: Performed By: #### P TPTT ####[facility] (DEFAULT)[address] [place] [address] PT Coag (PPP) [Time] 15.5 s High 11.9-14.2 [facility] Comment on above: Performed By: #### P TPTT ####[facility] (DEFAULT)[address] [place] [address] TACROLIMUS LEVEL, TROUGH (WI E DRUG LEVEL)Ordered By: Yanira Marcum on 01-20-2024 Interpretation and review of laboratory results Normal [facility] Tacrolimus (Bld) [Mass/Vol] 7.7 ng/mL Bone Marrow Transplant: 4.0-12.0, Therapeutic: 5.0-15.0 [facility] Method performed is a chemiluminescent microparticle immunoasssay on the [employer] i2000. The range is based on experience at [facility] and users should be aware that target concentrations vary widely depending on concomitant therapy, time post-transplant, and desired degree of immunosuppression. [facility] TACROLIMUS LEVEL, TROUGH (WI E DRUG LEVEL)on 01-20-2024 Tacrolimus, Trough 7.7 ng/mL Normal Bone Susana ow Transplant: 4.0-12.0, Therapeutic: 5.0-15.0 [facility] Comment on above: Order Comment: Pleas e draw at specified interval PRIOR to dose. Do not hold dose to wait for level. Specimens batched twice per day, (M-F) and once per day weekendsMethod performed is a chemiluminescent microparticle immunoasssay on the [employer] i2000.The range is based on experience at [facility] and users should be aware that target concentrations vary widely depending on concomitant therapy, time post-transplant, and desired degree of immunosuppression. Performed By: #### T ACRO ####[facility] (DEFAULT)[address] [place] [address] CBC,PLATELETSon 01-19-2024 Erythrocyte distribution width (RBC) [Ratio] [...] Center RBC (Bld) [#/Vol] 4.27 10*6/uL Low [facility] WBC (Bld) [#/Vol] 3.69 10*3/uL Low 3.73 - 10. 10 K/uL [facility] Hematocrit (Bld) [Volume fraction] 37.5 % Low 39.6-48.8 [facility] Comment on above: Performed By: #### H EMO ####[facility] (DEFAULT)[address] [place] [address] Hemoglobin (Bld) [Mass/Vol] 12.1 g/dL Low 13.4-16.8 [facility] Comment on above: Performed By: #### H EMO ####[facility] (DEFAULT)[address] [place] [address] MCV (RBC) [Entitic vol] 87.8 fL Normal 79.0-94.5 [facility] Comment on above: Performed By: #### H EMOGC ####[facility] (DEFAULT)[address] [place] [address] Mean Cell Hgb 28.3 pg Normal 26.1-33.3 [facility] Comment on above: Performed By: #### H EMOGC ####[facility] (DEFAULT)[address] [facility] [place] [address] Mean Cell Hgb Conc 32.3 g/dL Normal 31.9-36.5 [facility] Comment on above: Performed By: #### H EMOGC ####[facility] (DEFAULT)[address] [facility] [address] Platelet mean volume (Bld) [Entitic vol] 10.4 fL Normal 8.7-12.3 [facility] Comment on above: Performed By: #### H EMOGC ####[facility] (DEFAULT)[address] [place] [address] Platelets (Bld) [#/Vol] 163 10*3/uL Normal 146-337 [facility] Comment on above: Performed By: #### H EMOGC ####[facility] (DEFAULT)[address] [place] [address] RBC (Bld) [#/Vol] 4.27 10*6/uL Low 4.38-5.83 [facility] Comment on above: Performed By: #### H EMOGC ####[facility] (DEFAULT)[address] [place] [address] RBC Distribution 13.9 % Normal 10.9-14.3 [facility] Comment on above: Performed By: #### H EMOGC ####[facility] (DEFAULT)[address] [place] [address] WBC (Bld) [#/Vol] 3.69 10*3/uL Low 3.73-10.10 [facility] Comment on above: Performed By: #### H [facility] ####[facility] (DEFAULT)[address] [place] [address] CHEM 7 (LYTES,BUN,CREA,GLUC) on 01-19-2024 Anion gap [Moles/Vol] 14 mmol/L 7 - 17 mmol/L [facility] Chloride [Moles/Vol] 106 mmol/L 98 - 10 8 mmol/L [facility] CO2 [Moles/Vol] 24 mmol/L 21 - 31 mmol/L [facility] Creatinine [Mass/Vol] 1.13 mg/dL 0.70 - 1.30 mg/dL [facility] eGFR, CKD-EPI, Male 78 - PINF [facility] Comment on above: Reported eGFR [...] mg/dL 7 - 25 mg/dL [facility] Urea nitrogen/Creatinine [Mass ratio] 14 mg/mg [facility] Anion gap [Moles/Vol] 14 mmol/L Normal 7-17 [facility] Comment on above: Performed By: #### NATHANIEL RAMÍREZ ####[facility] (DEFAULT)[address] [place] [address] Chloride [Moles/Vol] 106 mmol/L Normal 98-108 [facility] Comment on above: Performed By: #### NATHANIEL RAMÍREZ ####[facility] (DEFAULT)[address] [place] [address] CO2 [Moles/Vol] 24 mmol/L Normal 21-31 [facility] Comment on above: Performed By: #### TJ RAMÍREZ7 ####[facility] (DEFAULT)[address] [place] [address] Creatinine [Mass/Vol] 1.13 mg/dL Normal 0.70-1.30 [facility] Comment on above: Performed By: #### TJ RAMÍREZ7 ####[facility] (DEFAULT)[address] [place] [address] GFR/1.73 sq M.predicted among non-blacks MDRD (S/P/Bld) [Vol rate/Area] 78 mL/min/{1.73_m2} Normal >=60 [facility] Comment on above: Result Comment: Repo rted eGFR is based on the CKD-EPI 2020 equation using creatinine, age, and sex. Performed By: #### TJ RAMÍREZ7 ####[facility] (DEFAULT)[address] [place] [address] Glucose [Mass/Vol] 86 mg/dL Normal 70-99 [facility] Comment on above: Performed By: #### TJ RAMÍREZ7 ####[facility] (DEFAULT)[address] [place] [address] Osmolality [Osmolality] 293 mosm/kg Normal 278-305 [facility] Comment on above: Performed By: #### TJ RAMÍREZ7 ####[facility] (DEFAULT)[address] [place] [address] Potassium [Moles/Vol] 3.8 mmol/L Normal 3.5-5.0 [facility] Comment on above: Performed By: #### Rod BLOOM CHM7 ####[facility] (DEFAULT)[address] [place] [address] Sodium [Moles/Vol] 140 mmol/L Normal 135-145 [facility] Comment on above: Performed By: #### M MERLE CHM7 ####[facility] (DEFAULT)[address] [place] [address] Urea nitrogen [Mass/Vol] 16 mg/dL Normal 7-25 [facility] Comment on above: Performed By: #### M MERLE, CHM7 ####[facility] (DEFAULT)[address] [place] [address] Urea nitrogen/Creatinine [Mass ratio] 14 mg/mg Normal [facility] Comment on above: Performed By: #### M MERLE CHM7 ####[facility] (DEFAULT)[address] [place] [address] EBV BY PCR, QUANTITATIVE,BLO ODon 01-19-2024 Ebv By Pcr, Quant, Blood <1000 Normal <1000 [facility] Comment on above: Order Comment: This [...] Clinical Microbiology Laboratory at [facility]. It has not been cleared or approved by the FDA. The laboratory is regulated under CLIA as qualified to perform high-complexity testing. This test is used for clinical purposes. It should not be regarded as investigational or for research. Performed By: #### E BVPCR ####[facility] (DEFAULT)[address] [place] [address] HISTOPLASMA AND BLASTOMYCES ANTIGEN, ENZYME IMMUNOASSAY, SERMon [...] and its performance characteristics determined by [facility] in a manner consistent with CLIA requirements. This test has not been cleared or approved by the U.S. Food and Drug Administration. Test Performed by: [facility] [address] [place] [address] [employer]ellant Charge Loader: Rosendo Bose M.D. Ph.D.; CLIA# [id number] [facility] MAGNESIUMon 01-19-2024 Interpretation and review of laboratory results Normal [facility] Magnesium [Mass/Vol] 1.8 mg/dL 1.6 - 2 .6 mg/dL [facility] Magnesium [Mass/Vol] 1.8 mg/dL Normal 1.6-2.6 [facility] Comment on above: Performed By: #### M , [facility] ####[facility] (DEFAULT)[address] [place] [address] No Panel Informationon 01-19 [facility] TACROLIMUS LEVEL, TROUGH (WI E DRUG LEVEL)Ordered By: Raymundo Mehta on 01-19-2024 Interpretation and review of laboratory results Normal [facility] Tacrolimus (Bld) [Mass/Vol] 6.8 ng/mL Bone Marrow Transplant: 4.0-12.0, Therapeutic: 5.0-15.0 [facility] Method performed is a chemiluminescent microparticle immunoasssay on the [employer] i2000. The range is based on experience at [facility] and users should be aware that target concentrations vary widely depending on concomitant therapy, time post-transplant, and desired degree of immunosuppression. [facility] TACROLIMUS LEVEL, TROUGH (WI E DRUG LEVEL)on 01-19-2024 Tacrolimus, Trough 6.8 ng/mL Normal Bone Susana ow Transplant: 4.0-12.0, Therapeutic: 5.0-15.0 [facility] Comment on above: Order Comment: Pleas e draw at specified interval PRIOR to dose. Do not hold dose to wait for level. Specimens batched twice per day, (M-F) and once per day weekendsMethod performed is a chemiluminescent microparticle immunoasssay on the [employer] i2000.The range is based on experience at [facility] and users should be aware that target concentrations vary widely depending on concomitant therapy, time post-transplant, and desired degree of immunosuppression. Performed By: #### T ACRO ####[facility] (DEFAULT)[address] [place] [address] US AV fistulaOrdered By: Diana Reyes on 01-19-2024 [facility] Work Phone: US AV fistulaon 01-19-2024 Radiology Study observation (narrative) [facility] AFP TUMOR MARKEROrdered By: Francisca Alaniz on 01-18-2024 AFP.tumor marker [Mass/Vol] ng/mL NINF - 8.1 ng/mL [facility] Comment on above: This test was perfor med on the MaxLinear Immunoassay platform by [employer] which is a two-site sandwich chemiluminescent immunoassay. It is important to note that assays using different manufacturers and/or methods may not be comparable. Interpretation and review of laboratory results Normal [facility] CBC,PLATELETSon 01-18-2024 Erythrocyte distribution width (RBC) [Ratio] [...] Center RBC (Bld) [#/Vol] 4.35 10*6/uL Low [facility] WBC (Bld) [#/Vol] 3.66 10*3/uL Low 3.73 - 10. 10 K/uL [facility] Hematocrit (Bld) [Volume fraction] 38.4 % Low 39.6-48.8 [facility] Comment on above: Performed By: #### H EMO ####[facility] (DEFAULT)[address] [place] [address] Hemoglobin (Bld) [Mass/Vol] 12.1 g/dL Low 13.4-16.8 [facility] Comment on above: Performed By: #### H EMO ####[facility] (DEFAULT)[address] [place] [address] MCV (RBC) [Entitic vol] 88.3 fL Normal 79.0-94.5 [facility] Comment on above: Performed By: #### H EMO ####[facility] (DEFAULT)[address] [place] [address] Mean Cell Hgb 27.8 pg Normal 26.1-33.3 [facility] Comment on above: Performed By: #### H EMO ####[facility] (DEFAULT)[address] [place] [address] Mean Cell Hgb Conc 31.5 g/dL Low 31.9-36.5 [facility] Comment on above: Performed By: #### H EMOGC ####[facility] (DEFAULT)[address] [place] [address] Platelet mean volume (Bld) [Entitic vol] 10.4 fL Normal 8.7-12.3 [facility] Comment on above: Performed By: #### H [facility] ####[facility] (DEFAULT)[address] [place] [address] Platelets (Bld) [#/Vol] 183 10*3/uL Normal 146-337 [facility] Comment on above: Performed By: #### H EMO ####[facility] (DEFAULT)[address] [place] [address] RBC (Bld) [#/Vol] 4.35 10*6/uL Low 4.38-5.83 [facility] Comment on above: Performed By: #### H [facility] ####[facility] (DEFAULT)[address] [place] [address] RBC Distribution 13.9 % Normal 10.9-14.3 [facility] Comment on above: Performed By: #### H [facility] ####[facility] (DEFAULT)[address] [place] [address] WBC (Bld) [#/Vol] 3.66 10*3/uL Low 3.73-10.10 [facility] Comment on above: Performed By: #### H [facility] ####[facility] (DEFAULT)[address] [place] [address] CHEM 7 (LYTES,BUN,CREA,GLUC) on 01-18-2024 Anion gap [...] Medical Center eGFR, CKD-EPI, Male - PINF [facility] Comment on above: Reported eGFR [...] [facility] Anion gap [Moles/Vol] 11 mmol/L Normal 7-17 [facility] Comment on above: Performed By: #### C HM7, HFP, MGO, TSHQR ####[facility] (DEFAULT)[address] [place] [address] Chloride [Moles/Vol] 108 mmol/L Normal 98-108 [facility] Comment on above: Performed By: #### C HM7, HFP, MGO, TSHQR ####[facility] (DEFAULT)[address] [facility] [place] [address] CO2 [Moles/Vol] 26 mmol/L Normal 21-31 [facility] Comment on above: Performed By: #### C HM7, HFP, MGO, TSHQR ####[facility] (DEFAULT)[address] [place] [address] Creatinine [Mass/Vol] 1.00 mg/dL Normal 0.70-1.30 [facility] Comment on above: Performed By: #### C HM7, HFP, MGO, TSHQR ####[facility] (DEFAULT)[address] [place] [address] eGFR, CKD-EPI, Male > Normal >=60 [facility] Comment on above: Result Comment: Repo rted eGFR is based on the CKD-EPI 2020 equation using creatinine, age, and sex. Performed By: #### C HM7, HFP, MGO, TSHQR ####[facility] (DEFAULT)[address] [place] [address] Glucose [Mass/Vol] 89 mg/dL Normal 70-99 [facility] Comment on above: Performed By: #### C HM7, HFP, MGO, TSHQR ####[facility] (DEFAULT)[address] [place] [address] Osmolality [Osmolality] 295 mosm/kg Normal 278-305 [facility] Comment on above: Performed By: #### C HM7, HFP, MGO, TSHQR ####[facility] (DEFAULT)[address] [facility] [address] Potassium [Moles/Vol] 3.9 mmol/L Normal 3.5-5.0 [facility] Comment on above: Performed By: #### C HM7, HFP, MGO, TSHQR ####[facility] (DEFAULT)[address] [place] [address] Sodium [Moles/Vol] 141 mmol/L Normal 135-145 [facility] Comment on above: Performed By: #### C HM7, HFP, MGO, TSHQR ####[facility] (DEFAULT)[address] [facility] [place] [address] Urea nitrogen [Mass/Vol] 16 mg/dL Normal 7-25 [facility] Comment on above: Performed By: #### C HM7, HFP, MGO, TSHQR ####[facility] (DEFAULT)[address] [facility] [place] [address] Urea nitrogen/Creatinine [Mass ratio] 16 mg/mg Normal [facility] Comment on above: Performed By: #### C HM7, HFP, MGO, TSHQR ####[facility] (DEFAULT)[address] [place] [address] Cardiac echo study Procedure Ordered By: Gian Carlos on 01-18-2024 Ao ASC index 1.63 cm/m2 [facility] Work Phone: Ao peak meliton 1.46 m/s [facility] Work Phone: [phone] Ao SOV index 1.56 cm/m2 [facility] Work Phone: [phone] Ao STJ index 1.25 cm/m2 [facility] Work Phone: Ao VTI 35.74 cm [facility] Work Phone: Ascending [facility].[address] Work Phone: AV LVOT peak gradient 4 mmHg [facility] Work Phone: [phone] AV mean gradient 5 mmHg [facility] Work Phone: [phone] AV peak gradient 9 mmHG [facility] Phone: [phone] AV valve area 3.09 cm2 [facility] Work Phone: AV Velocity Ratio 0.73 [facility] Work Phone: VEGA (continuity Vmax) 3.01 cm2 [facility] Work Phone: VEGA (continuity VTI) 3.09 cm2 [facility] Work Phone: VEGA index (continuity Vmax) 1.45 m/s [facility] Work Phone: [phone] VEGA index (continuity VTI) 1.49 cm2/m2 [facility] Work Phone: Avg e' pk meliton 0.07 m/s [facility] Work Phone: Avg E/e' ratio 19.45 [facility] Work Phone: Body surface area Derived from formula 2.08 m2 [facility] Work Phone: BP EF 62 % [facility] Work Phone: DI (Vmax) 0.73 [facility] Work Phone: DI (VTI) 0.74 m/2 [facility] Work Phone: E wave decelartion time 180.38 msec [facility] Work Phone: e' lateral pk meliton 0.0789 [facility]: e' lateral pk meliton 0.08 m/s [facility] Work Phone: e' septal pk meliton 0.0653 m/s [facility] Work Phone: e' septal pk meliton 0.07 m/s [facility] Work Phone: E/A ratio 2.67 [facility] Work Phone: E/e' lateral ratio 17.62 [facility]: E/e' septal ratio 21.29 [facility] Work Phone: EF SP 2CH 66 [facility] Work Phone: EF SP 4CH 58 [facility] Work Phone: FS 28 % 28 - 44 % [facility] Work Phone: IVC ostium 2.30 cm [facility] Work Phone: IVS 1.11 cm [facility] Work Phone: LA AREA 2CH 24.36 cm2 [facility] Work Phone: LA area 4CH 20.36 cm2 [facility] Work Phone: LA ESV BP (MOD) 64 mL [facility] Work Phone: LA ESV BP (MOD) index 31 mL/m2 [facility] Work Phone: [phone] LA ESV SP 2CH (MOD) 76 mL [facility] Work Phone: LA ESV SP 4CH (MOD) 53 mL [facility] Work Phone: LV EDV BP 180 mL [facility] Work Phone: [phone] LV EDV SP 2CH 190 mL [facility] Work Phone: LV EDV SP 4CH 166 mL [facility] Work Phone: LV ESV BP 69 mL [facility] Work Phone: [phone] LV ESV SP 2CH 65 mL [facility] Work Phone: LV ESV SP 4CH 70 mL [facility] Work Phone: LV mass 254.73 g [facility] Work Phone: LV Mass Index 122.5 g/m2 [facility] Work Phone: LV RWT 0.42 [facility] Work Phone: LV stroke volume BP (ml) 111 mL [facility] Work Phone: [phone] LV stroke volume index BP 53.37 mL/m2 [facility] Work Phone: LVIDD 5.53 cm [facility] Work Phone: LVIDS 3.97 cm [facility] Work Phone: LVOT area 4.15 cm2 [facility] Work Phone: LVOT diameter 2.30 cm [facility] Work Phone: LVOT peak meliton 1.06 m/s [facility] Work Phone: LVOT peak VTI 26.61 cm [facility] Work Phone: LVOT stroke volume [address] [facility] Work Phone: LVOT stroke volume index 53.13 ml/m2 [facility] Work Phone: Mr max meliton 4.21 m/s [facility] Work Phone: MR VTI 134.50 cm [facility] Work Phone: MV mean gradient 3 mmHg [facility] Work Phone: MV peak gradient 11 mmHg [facility] Work Phone: MV pk A meliton 0.52 m/s [facility] Work Phone: MV pk E meliton 1.39 m/s [facility] Work Phone: MV stenosis pressure 1/2 time 58.56 ms [facility] Work Phone: MV valve area by continuity eq 2.93 cm2 [facility] Work Phone: MV valve area p 1/2 method 3.76 cm2 [facility] Work Phone: MV VTI 37.70 cm [facility] Work Phone: MVA (continuity VTI) 2.92 cm [facility] Work Phone: [facility] AV VTI [...] [facility] Work Phone: [facility].16 [facility] Work Phone: RA area 4[facility] (MOD) 14.50 [facility]: RA vol index 4CH (MOD) 18.27 mL/m2 [facility] Work Phone: Right atrium volume 4 chamber method of disks 38 [facility] Work Phone: RV Area diastolic 33.20 cm2 [facility] Work Phone: RV Area systolic 21.30 cm2 [facility] Work Phone: RV basal diam 4.52 cm [facility] Work Phone: RV Fractional area change 35.8 % [facility] Work Phone: RV long diam 8.96 cm [facility] Work Phone: RV mid diam 3.70 cm [facility] Work Phone: RV S' 22.01 cm/s [facility] Work Phone: RVOT peak gradient [address] [facility] Work Phone: RVOT peak meliton 0.96 m/s [facility] Work Phone: RVOT peak VTI 20.86 cm [facility] Work Phone: Sinus 3.24 cm [facility] Work Phone: STJ 2.61 cm [facility] Work Phone: Stroke Volume 111 cm/mL [facility] Work Phone: Stroke volume index 53 [facility] Work Phone: TAPSE 2.19 cm [facility] Work Phone: [facility] Work Phone: Cardiac echo study [...] echocardiography study was performed. Imaging system used: [employer]. Indications Indications for study: shortness of breath. [facility] Radiology Study observation (narrative) [facility] Albumin [Mass/Vol] 3.5 g/dL Normal 3.5-5.0 [facility] Comment on above: Performed By: #### C HM7, HFP, MGO, TSHQR ####[facility] (DEFAULT)[address] [place] [address] ALP [Catalytic activity/Vol] 70 U/L Normal 32-126 [facility] Comment on above: Performed By: #### Chinedu HM7, HFP, MGO, TSHQR ####[facility] (DEFAULT)[address] [place] [address] ALT [Catalytic activity/Vol] 8 U/L Low 10-52 [facility] Comment on above: Performed By: #### Chinedu HM7, HFP, MGO, TSHQR ####[facility] (DEFAULT)[address] [place] [address] AST [Catalytic activity/Vol] 20 U/L Normal 10-39 [facility] Comment on above: Performed By: #### C HM7, HFP, MGO, TSHQR ####[facility] (DEFAULT)[address] [place] [address] Bilirubin [Mass/Vol] 1.7 mg/dL High <1.5 [facility] Comment on above: Performed By: #### C HM7, HFP, MGO, TSHQR ####[facility] (DEFAULT)[address] [place] [address] Bilirubin.indirect [Mass/Vol] 0.4 mg/dL High <0.3 [facility] Comment on above: Performed By: #### C HM7, HFP, MGO, TSHQR ####[facility] (DEFAULT)[address] [place] [address], [place] [address] Protein [Mass/Vol] 6.0 g/dL Low 6.4-8.3 [facility] Comment on above: Performed By: #### C HM7, HFP, MGO, TSHQR ####[facility] (DEFAULT)[address] [place] [address] MAGNESIUMon 01-18-2024 Magnesium [Mass/Vol] 1.5 mg/dL Low 1.6 - 2 .6 mg/dL [facility] Magnesium [Mass/Vol] 1.5 mg/dL Low 1.6-2.6 [facility] Comment on above: Performed By: #### C HM7, HFP, MGO, TSHQR ####[facility] (DEFAULT)[address] [place] [address], [place] [address] No Panel Informationon 01-18 Interpretation and review of laboratory results Abnormal [facility] PT,INR,PTTon 01-18-2024 aPTT Coag (PPP) [Time] 30.0 s [facility] INR Coag (Bld) [Relative time] 1.1 {INR} 0.9 - 1.1 [facility] Interpretation and review of laboratory results Abnormal [facility] PT Coag (PPP) [Time] 14.5 s High [facility] aPTT Coag (Bld) [Time] 30.0 s Normal 24.0-34.3 [facility] Comment on above: Performed By: #### P TPTT ####[facility] (DEFAULT)[address] [place] [address] INR Coag (PPP) [Relative time] 1.1 {INR} Normal 0.9-1.1 [facility] Comment on above: Performed By: #### P TPTT ####[facility] (DEFAULT)[address] [facility] [address] PT Coag (PPP) [Time] 14.5 s High 11.9-14.2 [facility] Comment on above: Performed By: #### P TPTT ####[facility] (DEFAULT)[address] [place] [address] TSH W/FT4 REFLEXon 4 Interpretation and review of laboratory results Normal [facility] TSH Qn 2.660 m[IU]/L [facility] TSH 2.660 uIU/mL Normal 0.550-4.780 [facility] Comment on above: Performed By: #### C HM7, HFP, MGO, TSHQR ####[facility] (DEFAULT)[address] [place] [address] AFP TUMOR MARKERon 4 AFP Tumor Marker <2.2 Normal <8.1 [facility] Comment on above: Result Comment: This test was performed on the MaxLinear Immunoassay platform by [employer] which is a two-site sandwich chemiluminescent immunoassay. It is important to note that assays using different manufacturers and/or methods may not be comparable. Performed By: #### A FPTMR ####[facility] (DEFAULT)[address] [place] [address] DARYL AURIS SCREEN BY PCRO rdered By: [...] [facility] at [facility]. It has not been cleared or approved by the FDA. The laboratory is regulated under CLIA as qualified to perform high-complexity testing. This test is used for clinical purposes. It should not be regarded as investigational or for research. [facility] CBC,PLATELETSon 01-17-2024 Erythrocyte distribution width (RBC) [Ratio] [...] Center RBC (Bld) [#/Vol] 4.30 10*6/uL Low [facility] WBC (Bld) [#/Vol] 3.69 10*3/uL Low 3.73 - 10. 10 K/uL [facility] Hematocrit (Bld) [Volume fraction] 37.2 % Low 39.6-48.8 [facility] Comment on above: Performed By: #### H [facility] ####[facility] (DEFAULT)[address] [place] [address] Hemoglobin (Bld) [Mass/Vol] 12.0 g/dL Low 13.4-16.8 [facility] Comment on above: Performed By: #### H EMOGC ####[facility] (DEFAULT)[address] [place] [address] MCV (RBC) [Entitic vol] 86.5 fL Normal 79.0-94.5 [facility] Comment on above: Performed By: #### H EMOGC ####[facility] (DEFAULT)[address] [place] [address] Mean Cell Hgb 27.9 pg Normal 26.1-33.3 [facility] Comment on above: Performed By: #### H EMOGC ####[facility] (DEFAULT)[address] [place] [address] Mean Cell Hgb Conc 32.3 g/dL Normal 31.9-36.5 [facility] Comment on above: Performed By: #### H EMOGC ####[facility] (DEFAULT)[address] [place] [address] Platelet mean volume (Bld) [Entitic vol] 10.5 fL Normal 8.7-12.3 [facility] Comment on above: Performed By: #### H EMOGC ####[facility] (DEFAULT)[address] [place] [address] Platelets (Bld) [#/Vol] 159 10*3/uL Normal 146-337 [facility] Comment on above: Performed By: #### H EMOGC ####[facility] (DEFAULT)[address] [place] [address] RBC (Bld) [#/Vol] 4.30 10*6/uL Low 4.38-5.83 [facility] Comment on above: Performed By: #### H EMOGC ####[facility] (DEFAULT)[address] [place] [address] RBC Distribution 14.0 % Normal 10.9-14.3 [facility] Comment on above: Performed By: #### H [facility] ####[facility] (DEFAULT)[address] [place] [address] WBC (Bld) [#/Vol] 3.69 10*3/uL Low 3.73-10.10 [facility] Comment on above: Performed By: #### H [facility] ####[facility] (DEFAULT)[address] [place] [address] CHEM 7 (LYTES,BUN,CREA,GLUC) on 01-17-2024 Anion gap [...] Center eGFR, CKD-EPI, Male 86 - PINF [facility] Comment on above: Reported eGFR is bas ed on the CKD-EPI 2020 equation using creatinine, age, and sex. Glucose [Mass/Vol] 82 mg/dL 70 - 99 mg/dL [facility] Osmolality Calc [Osmolality] 292 [facility] Potassium [Moles/Vol] 4.4 mmol/L 3.5 - 5.0 mmol/L [facility] Sodium [Moles/Vol] 139 mmol/L 135 - 145 mmol/L [facility] Urea nitrogen [Mass/Vol] 17 mg/dL 7 - 25 mg/dL [facility] Urea nitrogen/Creatinine [Mass ratio] 16 mg/mg [facility] Anion gap [Moles/Vol] 13 mmol/L Normal 7-17 [facility] Comment on above: Performed By: #### C HM7, HFP, MGO ####[facility] (DEFAULT)[address] [place] [address] Chloride [Moles/Vol] 109 mmol/L High 98-108 [facility] Comment on above: Performed By: #### C HMJessica, HFP, MGO ####[facility] (DEFAULT)[address] [facility] [place] [address] CO2 [Moles/Vol] 21 mmol/L Normal 21-31 [facility] Comment on above: Performed By: #### C HMJessica, TAVO, MGO ####[facility] (DEFAULT)[address] [place] [address] Creatinine [Mass/Vol] 1.04 mg/dL Normal 0.70-1.30 [facility] Comment on above: Performed By: #### C JASMYNE, TAVO, MGO ####[facility] (DEFAULT)[address] [place] [address] GFR/1.73 sq M.predicted among non-blacks MDRD (S/P/Bld) [Vol rate/Area] 86 mL/min/{1.73_m2} Normal >=60 [facility] Comment on above: Result Comment: Repo rted eGFR is based on the CKD-EPI 2020 equation using creatinine, age, and sex. Performed By: #### C JASMYNE, TAVO, MGO ####[facility] (DEFAULT)[address] [place] [address] Glucose [Mass/Vol] 82 mg/dL Normal 70-99 [facility] Comment on above: Performed By: #### Chinedu MEDLEY, TAVO, MGO ####[facility] (DEFAULT)[address] [place] [address] Osmolality [Osmolality] 292 mosm/kg Normal 278-305 [facility] Comment on above: Performed By: #### Chinedu HMJessica, HFP, MGO ####[facility] (DEFAULT)[address] [facility] [place] [address] Potassium [Moles/Vol] 4.4 mmol/L Normal 3.5-5.0 [facility] Comment on above: Performed By: #### C HM7, HFP, MGO ####[facility] (DEFAULT)[address] [place] [address] Sodium [Moles/Vol] 139 mmol/L Normal 135-145 [facility] Comment on above: Performed By: #### C HM7, HFP, MGO ####[facility] (DEFAULT)[address] [place] [address] Urea nitrogen [Mass/Vol] 17 mg/dL Normal 7-25 [facility] Comment on above: Performed By: #### C HM7, HFP, MGO ####[facility] (DEFAULT)[address] [place] [address] Urea nitrogen/Creatinine [Mass ratio] 16 mg/mg Normal [facility] Comment on above: Performed By: #### C HM7, HFP, MGO ####[facility] (DEFAULT)[address] [place] [address] CT ABDOMEN/PELVIS WITHOUT CO NTRASTon 01-17-2024 CT ABDOMEN/PELVIS WITHOUT CONTRAST Normal [facility] CT Abdomen and Pelvis WO con [...] unremarkable. Kidneys: Severe atrophy of the bilateral lower brule kidney is without hydronephrosis. Right lower quadrant [...] unremarkable. Kidneys: Severe atrophy of the bilateral lower brule kidney is without hydronephrosis. Right lower quadrant [...] the middle lobe. Trace left pleural effusion. [facility] Radiology Study observation (narrative) [facility] Albumin [Mass/Vol] 3.5 g/dL Normal 3.5-5.0 [facility] Comment on above: Performed By: #### C JASMYNE, TAVO, MGO ####[facility] (DEFAULT)[address] [place] [address] ALP [Catalytic activity/Vol] 73 U/L Normal 32-126 [facility] Comment on above: Performed By: #### C JASMYNE, TAVO, MGO ####[facility] (DEFAULT)[address] [facility] [place] [address] ALT [Catalytic activity/Vol] 7 U/L Low 10-52 [facility] Comment on above: Performed By: #### C JASMYNE, HFP, MGO ####[facility] (DEFAULT)[address] [place] [address] AST [Catalytic activity/Vol] 25 U/L Normal 10-39 [facility] Comment on above: Performed By: #### C HM7, HFP, MGO ####[facility] (DEFAULT)[address] [place] [address] Bilirubin [Mass/Vol] 1.8 mg/dL High <1.5 [facility] Comment on above: Performed By: #### C HM7, HFP, MGO ####[facility] (DEFAULT)[address] [place] [address] Bilirubin.indirect [Mass/Vol] 0.3 mg/dL High <0.3 [facility] Comment on above: Performed By: #### C HM7, HFP, MGO ####[facility] (DEFAULT)[address] [place] [address] Protein [Mass/Vol] 6.0 g/dL Low 6.4-8.3 [facility] Comment on above: Performed By: #### C HM7, HFP, MGO ####[facility] (DEFAULT)[address] [place] [address] HISTOPLASMA AND BLASTOMYCES ANTIGEN, ENZYME IMMUNOASSAY, SERMon 01-17-2024 Histoplasma/Blastomy antonia Ag Result Not detected Normal Not Detected [facility] Comment on above: Result Comment: No a ntigen from Histoplasma or Blastomyces detected. Falsenegative results may occur depending on extent of disease,and/or site of infection. Repeat testing on a new specimenif clinically indicated. Performed By: #### H IBAG ####[facility] (DEFAULT)[address] [place] [address] Histoplasma/Blastomy antonia Ag Value Not detected Normal [facility] Comment on above: Result Comment: ---- ADDITIONAL INFORMATION This test was developed and its performance characteristicsdetermined by [facility] in a manner consistent with CLIArequirements. This test has not been cleared or approved bythe U.S. Food and Drug Administration.Test Performed by:[address], [place], [place] [address]Egj Director: Rosendo Bose M.D. Ph.D.; CLIA# [id number] Performed By: #### H IBAG ####[facility] (DEFAULT)[address] [place] [address] MAGNESIUMon 01-17-2024 Interpretation and review of laboratory results Normal [facility] Magnesium [Mass/Vol] 1.7 mg/dL 1.6 - 2 .6 mg/dL [facility] Magnesium [Mass/Vol] 1.7 mg/dL Normal 1.6-2.6 [facility] Comment on above: Performed By: #### C HM7, HFP, MGO ####[facility] (DEFAULT)[address] [place] [address] No Panel Informationon 01-17 Interpretation and review of laboratory results Abnormal [facility] PT,INR,PTTon 01-17-2024 aPTT Coag (PPP) [Time] 29.9 s [facility] INR Coag (Bld) [Relative time] 1.1 {INR} 0.9 - 1.1 [facility] Interpretation and review of laboratory results Abnormal [facility] PT Coag (PPP) [Time] 14.5 s High [facility] aPTT Coag (Bld) [Time] 29.9 s Normal 24.0-34.3 [facility] Comment on above: Performed By: #### P TPTT ####[facility] (DEFAULT)[address] [place] [address] INR Coag (PPP) [Relative time] 1.1 {INR} Normal 0.9-1.1 [facility] Comment on above: Performed By: #### P TPTT ####[facility] (DEFAULT)[address] [place] [address] PT Coag (PPP) [Time] 14.5 s High 11.9-14.2 [facility] Comment on above: Performed By: #### P TPTT ####[facility] (DEFAULT)[address] [place] [address] B-TYPE NATRIURETIC PEPTIDE ( BRAIN)on 01-16-2024 Interpretation and review of laboratory results Abnormal [facility] Natriuretic peptide B (Bld) [Mass/Vol] 212 pg/mL High 0 - 100 pg/mL [facility] Natriuretic peptide B (Bld) [Mass/Vol] 212 pg/mL High 0-100 [facility] Comment on above: Performed By: #### B USER EXPERIENCE DEVELOPER ####[facility] (DEFAULT)[address] [place] [address] CALCIUMon 01-16-2024 Calcium [Mass/Vol] 8.5 mg/dL Low 8.6 - 10. 5 mg/dL [facility] Calcium [Mass/Vol] 8.5 mg/dL Low 8.6-10.5 [facility] Comment on above: Performed By: #### C A, CHM7, IPB, MGO, HFP ####[facility] (DEFAULT)[address] [place] [address] DARYL AURIS SCREEN BY PCRo n 01-16-2024 Daryl auris Screen by PCR Not detected Normal Not Detected [facility] Comment on above: Order Comment: This test was performed using a real-time PCR assay. This test was developed, and its performance characteristics determined by [facility]. It has not been cleared or approved by the FDA. The laboratory is regulated under CLIA as qualified to perform high-complexity testing. This test is used for clinical purposes. It should not be regarded as investigational or for research. Performed By: #### C ANDIDA AURIS SCREEN BY PCR ####[facility] (DEFAULT)[address] [place] [address] CBC AND ELECTRONIC DIFFon Basophils (Bld) [#/Vol] K/uL 0.00 - 0.09 K/uL [facility] Basophils/100 WBC (Bld) 0.6 % [facility] Differential cell count method Nom (Bld) Electronic Differential [facility] Eosinophils (Bld) [#/Vol] 0.09 10*3/uL 0.00 - [...] RBC/100 WBC (Bld) [Ratio] 0.0 % NINF [facility] Platelet mean volume (Bld) [Entitic vol] 10.1 fL 8.7 - 12.3 fL [facility] Platelets (Bld) [#/Vol] 155 10*3/uL 146 - 337 K/uL [facility] RBC (Bld) [#/Vol] 4.26 10*6/uL Low [facility] Segmented neutrophils/100 WBC (Bld) 52.7 % [facility] WBC (Bld) [#/Vol] 3.62 10*3/uL Low 3.73 - 10. 10 K/uL [facility] Abs Baso Auto < Normal 0.00-0.09 [facility] Comment on above: Performed By: #### L [id number] ####[facility] (DEFAULT)[address] [place] [address] Basophils/100 WBC (Bld) 0.6 % Normal [facility] Comment on above: Performed By: #### L [id number] ####[facility] (DEFAULT)[address] [place] [address] DIFF STATUS Electronic Differential Normal [facility] Comment on above: Performed By: #### L [id number] ####[facility] (DEFAULT)[address] [place] [address] Eosinophils (Bld) [#/Vol] 0.09 10*3/uL Normal 0.00-0.48 [facility] Comment on above: Performed By: #### L AB980 ####[facility] (DEFAULT)[address] [place] [address] Eosinophils/100 WBC (Bld) 2.5 % Normal [facility] Comment on above: Performed By: #### L [id number] ####[facility] (DEFAULT)[address] [place] [address] Hematocrit (Bld) [Volume fraction] 37.4 % Low 39.6-48.8 [facility] Comment on above: Performed By: #### L AB980 ####[facility] (DEFAULT)[address] [place] [address] Hemoglobin (Bld) [Mass/Vol] 12.1 g/dL Low 13.4-16.8 [facility] Comment on above: Performed By: #### L AB980 ####[facility] (DEFAULT)[address] [place] [address] Immature Grans % 0.3 % Normal [facility] Comment on above: Performed By: #### L AB980 ####[facility] (DEFAULT)[address] [place] [address] Immature Grans Absolute < Normal <=0.07 [facility] Comment on above: Performed By: #### L AB980 ####[facility] (DEFAULT)[address] [place] [address] Lymphocytes (Bld) [#/Vol] 1.16 10*3/uL Normal 0.83-3.57 [facility] Comment on above: Performed By: #### L AB980 ####[facility] (DEFAULT)[address] [place] [address] Lymphocytes/100 WBC (Bld) 32.0 % Normal [facility] Comment on above: Performed By: #### L AB980 ####[facility] (DEFAULT)[address] [place] [address] [place] [address] MCV (RBC) [Entitic vol] 87.8 fL Normal 79.0-94.5 [facility] Comment on above: Performed By: #### L [id number] ####[facility] (DEFAULT)[address] [place] [address] Mean Cell Hgb 28.4 pg Normal 26.1-33.3 [facility] Comment on above: Performed By: #### L AB980 ####[facility] (DEFAULT)[address] [place] [address] Mean Cell Hgb Conc 32.4 g/dL Normal 31.9-36.5 [facility] Comment on above: Performed By: #### L AB980 ####[facility] (DEFAULT)[address] [place] [address] Monocytes (Bld) [#/Vol] 0.43 10*3/uL Normal 0.24-0.93 [facility] Comment on above: Performed By: #### L AB980 ####[facility] (DEFAULT)[address] [facility] [place] [address] Monocytes/100 WBC (Bld) 11.9 % Normal [facility] Comment on above: Performed By: #### L [id number] ####[facility] (DEFAULT)[address] [facility] [place] [address] Nucleated RBC 0.0 /100 WBC Normal <=0.2 [facility] Comment on above: Performed By: #### L [id number] ####[facility] (DEFAULT)[address] [facility] [address] Platelet mean volume (Bld) [Entitic vol] 10.1 fL Normal 8.7-12.3 [facility] Comment on above: Performed By: #### L [id number] ####[facility] (DEFAULT)[address] [facility] [place] [address] Platelets (Bld) [#/Vol] 155 10*3/uL Normal 146-337 [facility] Comment on above: Performed By: #### L [id number] ####[facility] (DEFAULT)[address] [place] [address] RBC (Bld) [#/Vol] 4.26 10*6/uL Low 4.38-5.83 [facility] Comment on above: Performed By: #### L [id number] ####[facility] (DEFAULT)[address] [place] [address] RBC Distribution 14.0 % Normal 10.9-14.3 [facility] Comment on above: Performed By: #### L AB980 ####[facility] (DEFAULT)[address] [place] [address] Segs + Bands Auto 52.7 % Normal [facility] Comment on above: Performed By: #### L AB980 ####[facility] (DEFAULT)[address] [place] [address] Segs + Bands,Absolute Auto 1.91 K/uL Normal 1.57-6.19 [facility] Comment on above: Performed By: #### L [id number] ####[facility] (DEFAULT)[address] [place] [address] WBC (Bld) [#/Vol] 3.62 10*3/uL Low 3.73-10.10 [facility] Comment on above: Performed By: #### L [id number] ####[facility] (DEFAULT)[address] [place] [address] CHEM 7 (LYTES,BUN,CREA,GLUC) on 01-16-2024 Anion gap [...] Center eGFR, CKD-EPI, Male 86 - PINF [facility] Comment on above: Reported eGFR is bas ed on the CKD-EPI 2020 equation using creatinine, age, and sex. Glucose [Mass/Vol] 95 mg/dL 70 - 99 mg/dL [facility] Osmolality Calc [Osmolality] 293 [facility] Potassium [Moles/Vol] 4.0 mmol/L 3.5 - 5.0 mmol/L [facility] Sodium [Moles/Vol] 139 mmol/L 135 - 145 mmol/L [facility] Urea nitrogen [Mass/Vol] 19 mg/dL 7 - 25 mg/dL [facility] Urea nitrogen/Creatinine [Mass ratio] 18 mg/mg [facility] Anion gap [Moles/Vol] 11 mmol/L Normal 7-17 [facility] Comment on above: Performed By: #### C A, CHM7, IPB, MGO, HFP ####[facility] (DEFAULT)[address] [place] [address] Chloride [Moles/Vol] 108 mmol/L Normal 98-108 [facility] Comment on above: Performed By: #### C A, CHM7, IPB, MGO, HFP ####[facility] (DEFAULT)[address] [place] [address] CO2 [Moles/Vol] 24 mmol/L Normal 21-31 [facility] Comment on above: Performed By: #### C Tray, CHM7, IPB, MGO, HFP ####[facility] (DEFAULT)[address] [place] [address] Creatinine [Mass/Vol] 1.04 mg/dL Normal 0.70-1.30 [facility] Comment on above: Performed By: #### C A, CHM7, IPB, MGO, HFP ####[facility] (DEFAULT)[address] [place] [address] GFR/1.73 sq M.predicted among non-blacks MDRD (S/P/Bld) [Vol rate/Area] 86 mL/min/{1.73_m2} Normal >=60 [facility] Comment on above: Result Comment: Repo rted eGFR is based on the CKD-EPI 2020 equation using creatinine, age, and sex. Performed By: #### C A, CHM7, IPB, MGO, HFP ####[facility] (DEFAULT)[address] [place] [address] Glucose [Mass/Vol] 95 mg/dL Normal 70-99 [facility] Comment on above: Performed By: #### C Tray, CHM7, IPB, MGO, HFP ####[facility] (DEFAULT)[address] [place] [address] Osmolality [Osmolality] 293 mosm/kg Normal 278-305 [facility] Comment on above: Performed By: #### C A, CHM7, IPB, MGO, HFP ####[facility] (DEFAULT)[address] [place] [address] Potassium [Moles/Vol] 4.0 mmol/L Normal 3.5-5.0 [facility] Comment on above: Performed By: #### C A, CHM7, IPB, MGO, HFP ####[facility] (DEFAULT)[address] [place] [address] Sodium [Moles/Vol] 139 mmol/L Normal 135-145 [facility] Comment on above: Performed By: #### C Tray, CHM7, IPB, MGO, HFP ####[facility] (DEFAULT)[address] [place] [address] Urea nitrogen [Mass/Vol] 19 mg/dL Normal 7-25 [facility] Comment on above: Performed By: #### C A, CHM7, IPB, MGO, HFP ####[facility] (DEFAULT)[address] [place] [address] Urea nitrogen/Creatinine [Mass ratio] 18 mg/mg Normal [facility] Comment on above: Performed By: #### C A, CHM7, IPB, MGO, HFP ####[facility] (DEFAULT)[address] [place] [address] D-DIMER,QUANTITATIVEOrdered By: Shaji Kelly on 01-16-2024 Fibrin [...] assay in use at [facility] ([facility]), a cutoff of <0.50 mcg/mL has a Negative Predictive Value of 99.7% for exclusion of DVT in low and moderate PTP patients. Interpretation and review of laboratory results Abnormal [facility] D-DIMER,QUANTITATIVEon 01-16 D-Dimer, High Sensitivity 0.67 mcg/mL FEU High <0.50 [facility] Comment on above: Result Comment: The D-Dimer assay is intended for use in conjuction with a clinical pretest probability (PTP) assessment model to exclude pulmonary embolism (PE) and as an aid in the diagnosis of Deep Vein Thrombosis (DVT) in outpatients suspected of PE or DVT. For the assay in use at [facility] ([facility]), a cutoff of <0.50 mcg/mL has a Negative Predictive Value of 99.7% for exclusion of DVT in low and moderate PTP patients. Performed By: #### P TPTT, HSDDI ####[facility] (DEFAULT)[address] [place] [address] HEPATIC FUNCTION PANELon Albumin [Mass/Vol] 3.7 g/dL [...] Medical Center Bilirubin [Mass/Vol] 1.9 mg/dL High [facility] mg/dL [facility] Bilirubin.direct [Mass/Vol] 0.4 mg/dL High NINF - 0.3 mg/dL [facility] Protein [Mass/Vol] 6.1 g/dL Low 6.4 - 8.3 g/dL [facility] Albumin [Mass/Vol] 3.7 g/dL Normal 3.5-5.0 [facility] Comment on above: Performed By: #### C Tray, CHM7, IPB, MGO, HFP ####[facility] (DEFAULT)[address] [place] [address] ALP [Catalytic activity/Vol] 70 U/L Normal 32-126 [facility] Comment on above: Performed By: #### C Tray, CHM7, IPB, MGO, HFP ####[facility] (DEFAULT)[address] [place] [address] ALT [Catalytic activity/Vol] 8 U/L Low 10-52 [facility] Comment on above: Performed By: #### C A, CHM7, IPB, MGO, HFP ####[facility] (DEFAULT)[address] [place] [address] AST [Catalytic activity/Vol] 21 U/L Normal 10-39 [facility] Comment on above: Performed By: #### C Tray, CHM7, IPB, MGO, HFP ####[facility] (DEFAULT)[address] [place] [address] Bilirubin [Mass/Vol] 1.9 mg/dL High <1.5 [facility] Comment on above: Performed By: #### C A, CHM7, IPB, MGO, HFP ####[facility] (DEFAULT)[address] [place] [address] Bilirubin.indirect [Mass/Vol] 0.4 mg/dL High <0.3 [facility] Comment on above: Performed By: #### C A, CHM7, IPB, MGO, HFP ####[facility] (DEFAULT)[address] [place] [address] Protein [Mass/Vol] 6.1 g/dL Low 6.4-8.3 [facility] Comment on above: Performed By: #### C Tray, CHM7, IPB, MGO, HFP ####[facility] (DEFAULT)[address] [place] [address] MAGNESIUMon 01-16-2024 Magnesium [Mass/Vol] 1.7 mg/dL 1.6 - 2 .6 mg/dL [facility] Magnesium [Mass/Vol] 1.7 mg/dL Normal 1.6-2.6 [facility] Comment on above: Performed By: #### C Tray, CHM7, IPB, MGO, HFP ####[facility] (DEFAULT)[address] [place] [phone] No Panel Informationon 01-16 Interpretation and review of laboratory results Abnormal [facility] Interpretation and review of laboratory results Normal [facility] PHOSPHATE, INORGANICon 01-16 Phosphate [Mass/Vol] 4.1 mg/dL 2.2 - 4 .6 mg/dL [facility] Phosphorous 4.1 mg/dL Normal 2.2-4.6 [facility] Comment on above: Performed By: #### C Tray, CHM7, IPB, MGO, HFP ####[facility] (DEFAULT)[address] [place] [address] PT,INR,PTTon 01-16-2024 aPTT Coag (PPP) [Time] 29.6 s [facility] INR Coag (Bld) [Relative time] 1.2 {INR} High 0.9 - 1.1 [facility] Interpretation and review of laboratory results Abnormal [facility] PT Coag (PPP) [Time] 14.9 s High [facility] aPTT Coag (Bld) [Time] 29.6 s Normal 24.0-34.3 [facility] Comment on above: Performed By: #### P TPTT, HSDDI ####[facility] (DEFAULT)[address] [place] [address] INR Coag (PPP) [Relative time] 1.2 {INR} High 0.9-1.1 [facility] Comment on above: Performed By: #### P TPTT, HSDDI ####[facility] (DEFAULT)[address] [facility] [place] [address] PT Coag (PPP) [Time] 14.9 s High 11.9-14.2 [facility] Comment on above: Performed By: #### P TPTT, HSDDI ####[facility] (DEFAULT)[address] [place] [address] TACROLIMUS LEVEL, TROUGH (WI E DRUG LEVEL)Ordered By: Jimy Castillo on 01-16-2024 Interpretation and review of laboratory results Normal [facility] Tacrolimus (Bld) [Mass/Vol] 5.7 ng/mL Bone Marrow Transplant: 4.0-12.0, Therapeutic: 5.0-15.0 [facility] Method performed is a chemiluminescent microparticle immunoasssay on the [employer] i2000. The range is based on experience at [facility] and users should be aware that target concentrations vary widely depending on concomitant therapy, time post-transplant, and desired degree of immunosuppression. [facility] TACROLIMUS LEVEL, TROUGH (WI E DRUG LEVEL)on 01-16-2024 Tacrolimus, Trough 5.7 ng/mL Normal Bone Susana ow Transplant: 4.0-12.0, Therapeutic: 5.0-15.0 [facility] Comment on above: Order Comment: Pleas e draw at specified interval PRIOR to dose. Do not hold dose to wait for level. Specimens batched twice per day, (M-F) and once per day weekendsMethod performed is a chemiluminescent microparticle immunoasssay on the [employer] i2000.The range is based on experience at [facility] and users should be aware that target concentrations vary widely depending on concomitant therapy, time post-transplant, and desired degree of immunosuppression. Performed By: #### T ACRO ####[facility] (DEFAULT)[address] [place] [address] US ABDOMEN LIVER DOPPLERon 0 01-16-2024 US ABDOMEN LIVER DOPPLER Normal [facility] US.doppler Abdominal vessels on 01-16-2024 IMPRESSION: [...] pleural effusion. Trace right upper quadrant ascites. [facility] Radiology Study observation (narrative) [facility] US.doppler Abdominal vessels Ordered By: Iona Duran on 01-16-2024 [facility] Work Phone: XR CHEST PA AND LATERAL 2 EWSon 01-16-2024 XR CHEST PA AND LATERAL 2 VIEWS Normal [facility] XR Chest PA and Lateralon IMPRESSION: [...] WITH AUTO DIFFon BASOPHILS ABSOLUTE AUTO 0.0 [facility] Basophils/100 WBC (Bld) 0.5 % 0.2 - 2.0 % [facility] Eosinophils/100 WBC (Bld) 2.8 % 0.9 - 7.0 % [facility] Erythrocyte distribution width (RBC) [Ratio] 13.8 % 11.0 - 15.0 % [facility] Hematocrit (Bld) [Volume fraction] 43.7 % 42.0 - 54.0 % [facility] Hemoglobin (Bld) [Mass/Vol] 14.0 g/dL 14.0 - 18.0 g/dL [facility] IMMATURE GRANULOCYTES ABS AUTO 0.01 [facility] Immature granulocytes/100 WBC (Bld) 0.3 % 0.0 - 0.5 % [facility] LYMPHOCYTES ABSOLUTE AUTO 1.5 [facility] Lymphocytes/100 WBC (Bld) 37.5 % 20.5 - 60.0 % [facility] MCH (RBC) [Entitic mass] 28.4 pg 25.9 - 34.0 pg [facility] MCHC (RBC) [Mass/Vol] 32.0 g/dL 29.9 - 35.2 g/dL [facility] MCV (RBC) [Entitic vol] 88.6 fL 80.0 - 94.[address] [facility] MONOCYTES ABSOLUTE AUTO 0.5 [facility] Monocytes/100 WBC (Bld) 11.9 % 1.7 - 12.0 % [facility] NEUTROPHILS ABSOLUTE AUTO 1.9 [facility] Neutrophils/100 WBC (Bld) 47.0 % 43.0 - 75.0 % [facility] Platelet mean volume (Bld) [Entitic vol] 10.3 fL 9.5 - 13.5 fL [facility]1 [facility] PLT 180 [facility] RBC 4.93 [facility] WBC 4.0 [facility] CLINISYNC [facility] ALL CBC WITH AUTO DIFFon BASOPHILS ABSOLUTE AUTO 0.0 [facility] Basophils/100 WBC (Bld) 0.5 % 0.2 - 2.0 % [facility] Eosinophils/100 WBC (Bld) 2.6 % 0.9 - 7.0 % [facility] Erythrocyte distribution width (RBC) [Ratio] 13.5 % 11.0 - 15.0 % [facility] Hematocrit (Bld) [Volume fraction] 43.8 % 42.0 - 54.0 % [facility] Hemoglobin (Bld) [Mass/Vol] 14.0 g/dL 14.0 - 18.0 g/dL [facility] IMMATURE GRANULOCYTES ABS AUTO 0.00 [facility] Immature granulocytes/100 WBC (Bld) 0.0 % 0.0 - 0.5 % [facility] Interpretation and review of laboratory results Abnormal [facility] LYMPHOCYTES ABSOLUTE AUTO 1.8 [facility] Lymphocytes/100 WBC (Bld) 45.2 % 20.5 - 60.0 % [facility] MCH (RBC) [Entitic mass] 27.9 pg 25.9 - 34.[address] [facility] MCHC (RBC) [Mass/Vol] 32.0 g/dL 29.9 - 35.2 g/dL [facility] MCV (RBC) [Entitic vol] 87.4 fL 80.0 - 94.[address] [facility] MONOCYTES ABSOLUTE AUTO 0.4 [facility] Monocytes/100 WBC (Bld) 9.6 % 1.7 - 12.0 % [facility] NEUTROPHILS ABSOLUTE AUTO 1.6 [facility] Neutrophils/100 WBC (Bld) 42.1 % Low 43.0 - 75.0 % [facility] Platelet mean volume (Bld) [Entitic vol] 9.8 fL 9.5 - 13.[address] [facility] TB EO # 0.1 [facility] TB PLT 180 [facility] RBC 5.01 [facility] WBC 3.[address] [facility] CHEM 7 (LYTES,BUN,CREA,GLUC) on 09-11-2023 [...] Center eGFR, CKD-EPI, Male 78 - PINF [facility] Glucose [Mass/Vol] 109 mg/dL High [...] [facility] Anion gap [Moles/Vol] 13 mmol/L Normal 7-17 [facility] Comment on above: Performed By: #### NATHANIEL RAMÍREZ ####[facility] (DEFAULT)[address] [place] [address] Chloride [Moles/Vol] 111 mmol/L High 98-108 [facility] Comment on above: Performed By: #### TJ RAMÍREZ7 ####[facility] (DEFAULT)[address] [place] [address] CO2 [Moles/Vol] 20 mmol/L Low 21-31 [facility] Comment on above: Performed By: #### TJ RAMÍREZ7 ####[facility] (DEFAULT)[address] [place] [address] Creatinine [Mass/Vol] 1.13 mg/dL Normal 0.70-1.30 [facility] Comment on above: Performed By: #### TJ RAMÍREZ7 ####[facility] (DEFAULT)[address] [place] [address], [place] [address] GFR/1.73 sq M.predicted among non-blacks MDRD (S/P/Bld) [Vol rate/Area] 78 mL/min/{1.73_m2} Normal >=60 [facility] Comment on above: Result Comment: Repo rted eGFR is based on the CKD-EPI 2020 equation using creatinine, age, and sex. Performed By: #### NATHANIEL RAMÍREZ ####[facility] (DEFAULT)[address] [place] [address], [place] [address] Glucose [Mass/Vol] 109 mg/dL High 70-99 [facility] Comment on above: Performed By: #### TJ RAMÍREZ7 ####[facility] (DEFAULT)[address] [place], [place] [address], [place] [address] Osmolality [Osmolality] 295 mosm/kg Normal 278-305 [facility] Comment on above: Performed By: #### TJ RAMÍREZ7 ####[facility] (DEFAULT)[address] [place], [place] [address], [place] [address] Potassium [Moles/Vol] 4.3 mmol/L Normal 3.5-5.0 [facility] Comment on above: Performed By: #### TJ RAMÍREZ7 ####[facility] (DEFAULT)[address] [facility] [place] [address] Sodium [Moles/Vol] 140 mmol/L Normal 135-145 [facility] Comment on above: Performed By: #### Rod BLOOM CHM7 ####[facility] (DEFAULT)[address] [place] [address] Urea nitrogen [Mass/Vol] 16 mg/dL Normal 7- [facility] Comment on above: Performed By: #### Rod BLOOM CHM7 ####[facility] (DEFAULT)[address] [place] [address] Urea nitrogen/Creatinine [Mass ratio] 14 mg/mg Normal [facility] Comment on above: Performed By: #### Rod BLOOM CHM7 ####[facility] (DEFAULT)[address] [place] [address] GLUCOSE POCon 09-11-2023 Glucose [Mass/Vol] 108 mg/dL High 70 - 99 mg/dL [facility] Interpretation and review of laboratory results Abnormal [facility] POC Sample Type CAPBL [facility]3] Legionella sp identified Org specific cx Nom (Unsp spec)on 09-11-2023 Bacteria identified Cx Nom (Unsp spec) NO GROWTH DAY 7 OF 7 [facility] MAGNESIUMon 09-11-2023 Interpretation and review of laboratory results Normal [facility] Magnesium [Mass/Vol] 1.6 mg/dL 1.6 - 2 .6 mg/dL [facility] Magnesium [Mass/Vol] 1.6 mg/dL Normal 1.6-2.6 [facility] Comment on above: Performed By: #### Rod BLOOM CHM7 ####[facility] (DEFAULT)[address] [place] [address] No Panel Informationon 09-11 [facility] TACROLIMUS LEVEL, TROUGH (WI E DRUG LEVEL)on 09-11-2023 Interpretation and review of laboratory results Normal [facility] Tacrolimus (Bld) [Mass/Vol] 11.5 ng/mL [facility] Tacrolimus, Trough 11.5 ng/mL Normal Bone Susana ow Transplant: 4.0-12.0, Therapeutic: 5.0-15.0 [facility] Comment on above: Order Comment: Dilan gregory draw at specified interval PRIOR to dose. Do not hold dose to wait for level. Specimens batched twice per day, (M-F) and once per day weekendsMethod performed is a chemiluminescent microparticle immunoasssay on the [employer] i2000.The range is based on experience at [facility] and users should be aware that target concentrations vary widely depending on concomitant therapy, time post-transplant, and desired degree of immunosuppression. Performed By: #### T ACRO ####[facility] (DEFAULT)[address] [place] [address] CBC,PLATELETSon 09-10-2023 Erythrocyte distribution width (RBC) [Ratio] [...] Medical Center RBC (Bld) [#/Vol] 4.65 10*6/uL [facility] WBC (Bld) [#/Vol] 6.52 10*3/uL 3.73 - 10. 10 K/uL [facility] Hematocrit (Bld) [Volume fraction] 40.0 % Normal 39.6-48.8 [facility] Comment on above: Performed By: #### H EMOGC ####[facility] (DEFAULT)[address] [place] [address] Hemoglobin (Bld) [Mass/Vol] 12.7 g/dL Low 13.4-16.8 [facility] Comment on above: Performed By: #### H EMOGC ####[facility] (DEFAULT)[address] [facility] [place] [address] MCV (RBC) [Entitic vol] 86.0 fL Normal 79.0-94.5 [facility] Comment on above: Performed By: #### H EMOGC ####[facility] (DEFAULT)[address] [facility] [place] [address] Mean Cell Hgb 27.3 pg Normal 26.1-33.3 [facility] Comment on above: Performed By: #### H EMOGC ####[facility] (DEFAULT)[address] [facility] [place] [address] Mean Cell Hgb Conc 31.8 g/dL Low 31.9-36.5 [facility] Comment on above: Performed By: #### H EMOGC ####[facility] (DEFAULT)[address] [place] [address] Platelet mean volume (Bld) [Entitic vol] 9.5 fL Normal 8.7-12.3 [facility] Comment on above: Performed By: #### H EMOGC ####[facility] (DEFAULT)[address] [place] [address] Platelets (Bld) [#/Vol] 225 10*3/uL Normal 146-337 [facility] Comment on above: Performed By: #### H EMOGC ####[facility] (DEFAULT)[address] [place] [address] RBC (Bld) [#/Vol] 4.65 10*6/uL Normal 4.38-5.83 [facility] Comment on above: Performed By: #### H [facility] ####[facility] (DEFAULT)[address] [place] [address] RBC Distribution 13.9 % Normal 10.9-14.3 [facility] Comment on above: Performed By: #### H [facility] ####[facility] (DEFAULT)[address] [place] [address] WBC (Bld) [#/Vol] 6.52 10*3/uL Normal 3.73-10.10 [facility] Comment on above: Performed By: #### H [facility] ####[facility] (DEFAULT)[address] [place] [address] CHEM 7 (LYTES,BUN,CREA,GLUC) on 09-10-2023 Anion gap [...] Center eGFR, [facility]-EPI, [facility] 68 [facility] Glucose [Mass/Vol] 100 mg/dL High 70 - 99 mg/dL [facility] Osmolality Calc [[facility]olality] [facility] Potassium [Moles/Vol] 4.4 mmol/L 3.5 - 5.0 mmol/L [facility] Sodium [Moles/Vol] 140 mmol/L 135 - 145 mmol/L [facility] Urea nitrogen [Mass/Vol] 12 mg/dL 7 - 25 mg/dL [facility] Urea nitrogen/Creatinine [Mass ratio] 9 mg/mg [facility] Anion gap [Moles/Vol] 13 mmol/L Normal 7-17 [facility] Comment on above: Performed By: #### NATHANIEL RAMÍREZ, HFP ####[facility] (DEFAULT)[address] [place] [address] Chloride [Moles/Vol] 111 mmol/L High 98-108 [facility] Comment on above: Performed By: #### NATHANIEL RAMÍREZ, HFP ####[facility] (DEFAULT)[address] [place] [address] CO2 [Moles/Vol] 20 mmol/L Low 21-31 [facility] Comment on above: Performed By: #### NATHANIEL RAMÍREZ, HFP ####[facility] (DEFAULT)[address] [facility] [place] [address] Creatinine [Mass/Vol] 1.27 mg/dL Normal 0.70-1.30 [facility] Comment on above: Performed By: #### NATHANIEL RAMÍREZ, HFP ####[facility] (DEFAULT)[address] [facility] [place] [address] GFR/1.73 sq M.predicted among non-blacks MDRD (S/P/Bld) [Vol rate/Area] 68 mL/min/{1.73_m2} Normal >=60 [facility] Comment on above: Result Comment: Repo rted eGFR is based on the CKD-EPI 2020 equation using creatinine, age, and sex. Performed By: #### NATHANIEL RAMÍREZ, HFP ####[facility] (DEFAULT)[address] [facility] [place] [address] Glucose [Mass/Vol] 100 mg/dL High 70-99 [facility] Comment on above: Performed By: #### NATHNAIEL RAMÍREZ, HFP ####[facility] (DEFAULT)[address] [facility] [place] [address] Osmolality [Osmolality] 293 mosm/kg Normal 278-305 [facility] Comment on above: Performed By: #### M TJ BLOOM7, HFP ####[facility] (DEFAULT)[address] [place] [address] Potassium [Moles/Vol] 4.4 mmol/L Normal 3.5-5.0 [facility] Comment on above: Performed By: #### Rod BLOOM CHM7, HFP ####[facility] (DEFAULT)[address] [place] [address] Sodium [Moles/Vol] 140 mmol/L Normal 135-145 [facility] Comment on above: Performed By: #### NATHANIEL RAMÍREZ, HFP ####[facility] (DEFAULT)[address] [place] [address] Urea nitrogen [Mass/Vol] 12 mg/dL Normal 7-25 [facility] Comment on above: Performed By: #### NATHANIEL RAMÍREZ, HFP ####[facility] (DEFAULT)[address] [place] [address] Urea nitrogen/Creatinine [Mass ratio] 9 mg/mg Normal [facility] Comment on above: Performed By: #### NATHANIEL RAMÍREZ, HFP ####[facility] (DEFAULT)[address] [place] [address] HEPATIC FUNCTION PANELon Albumin [Mass/Vol] 3.3 g/dL [...] [Mass/Vol] 0.9 mg/dL NINF - 1.5 mg/dL [facility] Bilirubin.direct [Mass/Vol] 0.2 mg/dL NINF - 0.3 mg/dL [facility] Protein [Mass/Vol] 6.8 g/dL 6.4 - 8.3 g/dL [facility] Albumin [Mass/Vol] 3.3 g/dL Low 3.5-5.0 [facility] Comment on above: Performed By: #### M MERLE CHM7, HFP ####[facility] (DEFAULT)[address] [place] [address] ALP [Catalytic activity/Vol] 143 U/L High 32-126 [facility] Comment on above: Performed By: #### M MERLE CHM7, HFP ####[facility] (DEFAULT)[address] [place] [address] ALT [Catalytic activity/Vol] 28 U/L Normal 10-52 [facility] Comment on above: Performed By: #### M MERLE CHM7, HFP ####[facility] (DEFAULT)[address] [place] [address] AST [Catalytic activity/Vol] 29 U/L Normal 10-39 [facility] Comment on above: Performed By: #### M MERLE CHM7, HFP ####[facility] (DEFAULT)[address] [place] [address] Bilirubin [Mass/Vol] 0.9 mg/dL Normal <1.5 [facility] Comment on above: Performed By: #### M MERLE CHM7, HFP ####[facility] (DEFAULT)[address] [place] [address] Bilirubin.indirect [Mass/Vol] 0.2 mg/dL Normal <0.3 [facility] Comment on above: Performed By: #### M MERLE CHM7, HFP ####[facility] (DEFAULT)[address] [place] [address] Protein [Mass/Vol] 6.8 g/dL Normal 6.4-8.3 [facility] Comment on above: Performed By: #### M MERLE CHM7, HFP ####[facility] (DEFAULT)[address] [place] [address] MAGNESIUMon 09-10-2023 Interpretation and review of laboratory results Normal [facility] Magnesium [Mass/Vol] 1.9 mg/dL 1.6 - 2 .6 mg/dL [facility] Magnesium [Mass/Vol] 1.9 mg/dL Normal 1.6-2.6 [facility] Comment on above: Performed By: #### M GO, CHM7, HFP ####[facility] (DEFAULT)[address] [place] [address] No Panel Informationon 09-10 Interpretation and review of laboratory results Abnormal [facility] TACROLIMUS LEVEL, TROUGH (WI E DRUG LEVEL)Ordered By: Jimy Castillo on 09-10-2023 Interpretation and review of laboratory results Normal [facility] Tacrolimus (Bld) [Mass/Vol] 11.8 ng/mL [facility] TACROLIMUS LEVEL, TROUGH (WI E DRUG LEVEL)on 09-10-2023 Tacrolimus, Trough 11.8 ng/mL Normal Bone Susana ow Transplant: 4.0-12.0, Therapeutic: 5.0-15.0 [facility] Comment on above: Order Comment: Pleas e draw at specified interval PRIOR to dose. Do not hold dose to wait for level. Specimens batched twice per day, (M-) and once per day weekendsMethod performed is a chemiluminescent microparticle immunoasssay on the [employer] i2000.The range is based on experience at [facility] and users should be aware that target concentrations vary widely depending on concomitant therapy, time post-transplant, and desired degree of immunosuppression. Performed By: #### T ACRO ####[facility] (DEFAULT)[address] [place] [address] CHEM 7 (LYTES,BUN,CREA,GLUC) on 09-09-2023 Anion gap [...] Center eGFR, CKD-EPI, Male 87 - PINF [facility] Glucose [Mass/Vol] 106 mg/dL High [...] [Moles/Vol] 14 mmol/L Normal 7-17 [facility] Comment on above: Performed By: #### JO ANN RAMÍREZ CHM7 ####[facility] (DEFAULT)[address] [place] [address] Chloride [Moles/Vol] 113 mmol/L High 98-108 [facility] Comment on above: Performed By: #### JO ANN RAMÍREZ CHM7 ####[facility] (DEFAULT)[address] [place] [address] CO2 [Moles/Vol] 18 mmol/L Low 21-31 [facility] Comment on above: Performed By: #### JO ANN RAMÍREZ CHM7 ####[facility] (DEFAULT)[address] [place] [address] Creatinine [Mass/Vol] 1.03 mg/dL Normal 0.70-1.30 [facility] Comment on above: Performed By: #### JO ANN RAMÍREZ CHM7 ####[facility] (DEFAULT)[address] [place] [address] GFR/1.73 sq M.predicted among non-blacks MDRD (S/P/Bld) [Vol rate/Area] 87 mL/min/{1.73_m2} Normal >=60 [facility] Comment on above: Result Comment: Repo rted eGFR is based on the CKD-EPI 2020 equation using creatinine, age, and sex. Performed By: #### JO ANN RAMÍREZ CHRod7 ####[facility] (DEFAULT)[address] [place] [address] Glucose [Mass/Vol] 106 mg/dL High 70-99 [facility] Comment on above: Performed By: #### JO ANN RAMÍREZ CHRod7 ####[facility] (DEFAULT)[address] [facility] [place] [address] Osmolality [Osmolality] 294 mosm/kg Normal 278-305 [facility] Comment on above: Performed By: #### JO ANN RAMÍREZ CHM7 ####[facility] (DEFAULT)[address] [place] [address] Potassium [Moles/Vol] 4.0 mmol/L Normal 3.5-5.0 [facility] Comment on above: Performed By: #### JO ANN RAMÍREZ CHM7 ####[facility] (DEFAULT)[address] [place] [address] Sodium [Moles/Vol] 141 mmol/L Normal 135-145 [facility] Comment on above: Performed By: #### JO ANN RAMÍREZ CHM7 ####[facility] (DEFAULT)[address] [place] [address] Urea nitrogen [Mass/Vol] 10 mg/dL Normal 7-25 [facility] Comment on above: Performed By: #### JO ANN RAMÍREZ CHM7 ####[facility] (DEFAULT)[address] [place] [address] Urea nitrogen/Creatinine [Mass ratio] 10 mg/mg Normal [facility] Comment on above: Performed By: #### JO ANN RAMÍREZ CHM7 ####[facility] (DEFAULT)[address] [place] [address] MAGNESIUMon 09-09-2023 Magnesium [Mass/Vol] 1.6 mg/dL 1.6 - 2 .6 mg/dL [facility] Magnesium [Mass/Vol] 1.6 mg/dL Normal 1.6-2.6 [facility] Comment on above: Performed By: #### JO ANN RAMÍREZ CHM7 ####[facility] (DEFAULT)[address] [place] [address] No Panel Informationon 09-09 Interpretation and review of laboratory results Normal [facility] PHOSPHATE, INORGANICon 09-09 Phosphate [Mass/Vol] 3.8 mg/dL 2.2 - 4 .6 mg/dL [facility] Phosphorous 3.8 mg/dL Normal 2.2-4.6 [facility] Comment on above: Performed By: #### JO ANN RAMÍREZ CHM7 ####[facility] (DEFAULT)[address] [place] [address] TACROLIMUS LEVEL, TROUGH (WI E DRUG LEVEL)on 09-09-2023 Interpretation and review of laboratory results Normal [facility] Tacrolimus (Bld) [Mass/Vol] 9.2 ng/mL [facility] Tacrolimus, Trough 9.2 ng/mL Normal Bone Susana ow Transplant: 4.0-12.0, Therapeutic: 5.0-15.0 [facility] Comment on above: Order Comment: Pleas e draw at specified interval PRIOR to dose. Do not hold dose to wait for level. Specimens batched twice per day, (M-F) and once per day weekendsMethod performed is a chemiluminescent microparticle immunoasssay on the [employer] i2000.The range is based on experience at [facility] and users should be aware that target concentrations vary widely depending on concomitant therapy, time post-transplant, and desired degree of immunosuppression. Performed By: #### T ACRO ####[facility] (DEFAULT)[address] [place] [address] CBC,PLATELETSon 09-08-2023 Erythrocyte distribution width (RBC) [Ratio] [...] Center RBC (Bld) [#/Vol] 4.24 10*6/uL Low [facility] WBC (Bld) [#/Vol] 4.59 10*3/uL 3.73 - 10. 10 K/uL [facility] Hematocrit (Bld) [Volume fraction] 36.1 % Low 39.6-48.8 [facility] Comment on above: Performed By: #### H [facility] ####[facility] (DEFAULT)[address] [place] [address] Hemoglobin (Bld) [Mass/Vol] 11.6 g/dL Low 13.4-16.8 [facility] Comment on above: Performed By: #### H EMOGC ####[facility] (DEFAULT)[address] [facility] [place] [address] MCV (RBC) [Entitic vol] 85.1 fL Normal 79.0-94.5 [facility] Comment on above: Performed By: #### H EMOGC ####[facility] (DEFAULT)[address] [facility] [place] [address] Mean Cell Hgb 27.4 pg Normal 26.1-33.3 [facility] Comment on above: Performed By: #### H EMOGC ####[facility] (DEFAULT)[address] [facility] [place] [address] Mean Cell Hgb Conc 32.1 g/dL Normal 31.9-36.5 [facility] Comment on above: Performed By: #### H EMO ####[facility] (DEFAULT)[address] [facility] [place] [address] Platelet mean volume (Bld) [Entitic vol] 9.5 fL Normal 8.7-12.3 [facility] Comment on above: Performed By: #### H EMOGC ####[facility] (DEFAULT)[address] [place] [address] Platelets (Bld) [#/Vol] 182 10*3/uL Normal 146-337 [facility] Comment on above: Performed By: #### H EMOGC ####[facility] (DEFAULT)[address] [facility] [place] [address] RBC (Bld) [#/Vol] 4.24 10*6/uL Low 4.38-5.83 [facility] Comment on above: Performed By: #### H EMOGC ####[facility] (DEFAULT)[address] [facility] [address] RBC Distribution 13.6 % Normal 10.9-14.3 [facility] Comment on above: Performed By: #### H [facility] ####[facility] (DEFAULT)[address] [place] [address] WBC (Bld) [#/Vol] 4.59 10*3/uL Normal 3.73-10.10 [facility] Comment on above: Performed By: #### H [facility] ####[facility] (DEFAULT)[address] [place] [address] CHEM 7 (LYTES,BUN,CREA,GLUC) on 09-08-2023 Anion gap [Moles/Vol] 12 mmol/L 7 - 17 mmol/L [facility] Chloride [Moles/Vol] 113 mmol/L High 98 - 10 8 mmol/L [facility] CO2 [Moles/Vol] 21 mmol/L 21 - 31 mmol/L [facility] Creatinine [Mass/Vol] 1.14 mg/dL 0.70 - 1.30 mg/dL [facility] eGFR, CKD-EPI, [facility] 77 - [facility] Glucose [Mass/Vol] 107 mg/dL High 70 - 99 mg/dL [facility] Osmolality Calc [Osmolality] 296 [facility] Potassium [Moles/Vol] 3.9 mmol/L 3.5 - 5.0 mmol/L [facility] Sodium [Moles/Vol] 142 mmol/L 135 - 145 mmol/L [facility] Urea nitrogen [Mass/Vol] 11 mg/dL 7 - 25 mg/dL [facility] Urea nitrogen/Creatinine [Mass ratio] 10 mg/mg [facility] Anion gap [Moles/Vol] 12 mmol/L Normal 7-17 [facility] Comment on above: Performed By: #### M JO ANN BLOOM, TAVO, CHM7 ####[facility] (DEFAULT)[address] [place] [address] Chloride [Moles/Vol] 113 mmol/L High 98-108 [facility] Comment on above: Performed By: #### M GO, IPB, HFP, CHM7 ####[facility] (DEFAULT)[address] [place] [address] CO2 [Moles/Vol] 21 mmol/L Normal 21-31 [facility] Comment on above: Performed By: #### M GO, IPB, HFP, CHM7 ####[facility] (DEFAULT)[address] [facility] [place] [address] Creatinine [Mass/Vol] 1.14 mg/dL Normal 0.70-1.30 [facility] Comment on above: Performed By: #### M GO, IPB, HFP, CHM7 ####[facility] (DEFAULT)[address] [place] [address], [place] [address] GFR/1.73 sq M.predicted among non-blacks MDRD (S/P/Bld) [Vol rate/Area] 77 mL/min/{1.73_m2} Normal >=60 [facility] Comment on above: Result Comment: Repo rted eGFR is based on the CKD-EPI 2020 equation using creatinine, age, and sex. Performed By: #### M GO, IPB, HFP, CHM7 ####[facility] (DEFAULT)[address] [place] [address] Glucose [Mass/Vol] 107 mg/dL High 70-99 [facility] Comment on above: Performed By: #### M GO, IPB, HFP, CHM7 ####[facility] (DEFAULT)[address] [place] [address] Osmolality [Osmolality] 296 mosm/kg Normal 278-305 [facility] Comment on above: Performed By: #### M GO, IPB, HFP, CHM7 ####[facility] (DEFAULT)[address] [facility] [place] [address] Potassium [Moles/Vol] 3.9 mmol/L Normal 3.5-5.0 [facility] Comment on above: Performed By: #### M GO, IPB, HFP, CHM7 ####[facility] (DEFAULT)[address] [place] [address] Sodium [Moles/Vol] 142 mmol/L Normal 135-145 [facility] Comment on above: Performed By: #### M GO, IPB, HFP, CHM7 ####[facility] (DEFAULT)[address] [place] [address] Urea nitrogen [Mass/Vol] 11 mg/dL Normal 7-25 [facility] Comment on above: Performed By: #### M GO, IPB, HFP, CHM7 ####[facility] (DEFAULT)[address] [place] [address] Urea nitrogen/Creatinine [Mass ratio] 10 mg/mg Normal [facility] Comment on above: Performed By: #### M GO, IPB, HFP, CHM7 ####[facility] (DEFAULT)[address] [place] [address] HEPATIC FUNCTION PANELon Albumin [Mass/Vol] 2.9 g/dL [...] [facility] Bilirubin [Mass/Vol] 0.8 mg/dL [facility] mg/dL [facility] Bilirubin.direct [Mass/Vol] 0.2 mg/dL NINF - 0.3 mg/dL [facility] Protein [Mass/Vol] 5.9 g/dL Low 6.4 - 8.3 g/dL [facility] Albumin [Mass/Vol] 2.9 g/dL Low 3.5-5.0 [facility] Comment on above: Performed By: #### M GO, IPB, HFP, CHM7 ####[facility] (DEFAULT)[address] [place] [address] ALP [Catalytic activity/Vol] 133 U/L High 32-126 [facility] Comment on above: Performed By: #### M GO, IPB, HFP, CHM7 ####[facility] (DEFAULT)[address] [place] [address] ALT [Catalytic activity/Vol] 23 U/L Normal 10-52 [facility] Comment on above: Performed By: #### M GO, IPB, HFP, CHM7 ####[facility] (DEFAULT)[address] [place] [address] AST [Catalytic activity/Vol] 23 U/L Normal 10-39 [facility] Comment on above: Performed By: #### M GO, IPB, HFP, CHM7 ####[facility] (DEFAULT)[address] [place] [address] Bilirubin [Mass/Vol] 0.8 mg/dL Normal <1.5 [facility] Comment on above: Performed By: #### M GO, IPB, HFP, CHM7 ####[facility] (DEFAULT)[address] [place] [address] Bilirubin.indirect [Mass/Vol] 0.2 mg/dL Normal <0.3 [facility] Comment on above: Performed By: #### M GO, IPB, HFP, CHM7 ####[facility] (DEFAULT)[address] [place] [address] Protein [Mass/Vol] 5.9 g/dL Low 6.4-8.3 [facility] Comment on above: Performed By: #### M GO, IPB, HFP, CHM7 ####[facility] (DEFAULT)[address] [place] [address] MAGNESIUMon 09-08-2023 Interpretation and review of laboratory results Normal [facility] Magnesium [Mass/Vol] 1.8 mg/dL 1.6 - 2 .6 mg/dL [facility] Magnesium [Mass/Vol] 1.8 mg/dL Normal 1.6-2.6 [facility] Comment on above: Performed By: #### M JO ANN BLOOM, HFP, CHM7 ####[facility] (DEFAULT)[address] [place] [address] No Panel Informationon 09-08 Interpretation and review of laboratory results Abnormal [facility] PHOSPHATE, INORGANICon 09-08 Interpretation and review of laboratory results Normal [facility] Phosphate [Mass/Vol] 4.1 mg/dL 2.2 - 4 .6 mg/dL [facility] Phosphorous 4.1 mg/dL Normal 2.2-4.6 [facility] Comment on above: Performed By: #### M JO ANN BLOOM, HFP, CHM7 ####[facility] (DEFAULT)[address] [place] [address] TACROLIMUS LEVEL, TROUGH (WI E DRUG LEVEL)on 09-08-2023 Interpretation and review of laboratory results Normal [facility] Tacrolimus (Bld) [Mass/Vol] 8.5 ng/mL [facility] Tacrolimus, Trough 8.5 ng/mL Normal Bone Susana ow Transplant: 4.0-12.0, Therapeutic: 5.0-15.0 [facility] Comment on above: Order Comment: Pleas e draw at specified interval PRIOR to dose. Do not hold dose to wait for level. Specimens batched twice per day, (M-F) and once per day weekendsMethod performed is a chemiluminescent microparticle immunoasssay on the [employer] i2000.The range is based on experience at [facility] and users should be aware that target concentrations vary widely depending on concomitant therapy, time post-transplant, and desired degree of immunosuppression. Performed By: #### T ACRO ####[facility] (DEFAULT)[address] [place] [address] [place] [address] CBC,PLATELETSon 09-07-2023 Erythrocyte distribution width (RBC) [Ratio] [...] Center RBC (Bld) [#/Vol] 4.29 10*6/uL Low [facility] WBC (Bld) [#/Vol] 4.10 10*3/uL 3.73 - 10. 10 K/uL [facility] Hematocrit (Bld) [Volume fraction] 37.1 % Low 39.6-48.8 [facility] Comment on above: Performed By: #### H [facility] ####[facility] (DEFAULT)[address] [place] [address] Hemoglobin (Bld) [Mass/Vol] 11.9 g/dL Low 13.4-16.8 [facility] Comment on above: Performed By: #### H [facility] ####[facility] (DEFAULT)[address] [place] [address] MCV (RBC) [Entitic vol] 86.5 fL Normal 79.0-94.5 [facility] Comment on above: Performed By: #### H EMOGC ####[facility] (DEFAULT)[address] [place] [address] Mean Cell Hgb 27.7 pg Normal 26.1-33.3 [facility] Comment on above: Performed By: #### H EMOGC ####[facility] (DEFAULT)[address] [place] [address] Mean Cell Hgb Conc 32.1 g/dL Normal 31.9-36.5 [facility] Comment on above: Performed By: #### H EMOGC ####[facility] (DEFAULT)[address] [place] [address] Platelet mean volume (Bld) [Entitic vol] 9.6 fL Normal 8.7-12.3 [facility] Comment on above: Performed By: #### H EMOGC ####[facility] (DEFAULT)[address] [place] [address] Platelets (Bld) [#/Vol] 176 10*3/uL Normal 146-337 [facility] Comment on above: Performed By: #### H EMOGC ####[facility] (DEFAULT)[address] [place] [address] RBC (Bld) [#/Vol] 4.29 10*6/uL Low 4.38-5.83 [facility] Comment on above: Performed By: #### H EMOGC ####[facility] (DEFAULT)[address] [place] [address] RBC Distribution 13.5 % Normal 10.9-14.3 [facility] Comment on above: Performed By: #### H EMOGC ####[facility] (DEFAULT)[address] [place] [address] WBC (Bld) [#/Vol] 4.10 10*3/uL Normal 3.73-10.10 [facility] Comment on above: Performed By: #### H [facility] ####[facility] (DEFAULT)[address] [place] [address] CHEM 7 (LYTES,BUN,CREA,GLUC) on 09-07-2023 Anion gap [Moles/Vol] 13 mmol/L 7 - 17 mmol/L [facility] Chloride [Moles/Vol] 113 mmol/L High 98 - 10 8 mmol/L [facility] CO2 [Moles/Vol] 19 mmol/L Low 21 - 31 mmol/L [facility] Creatinine [Mass/Vol] 1.22 mg/dL 0.70 - 1.30 mg/dL [facility] eGFR, CKD-EPI, Male 71 - PINF [facility] Glucose [Mass/Vol] 107 mg/dL High 70 - 99 mg/dL [facility] Osmolality Calc [Osmolality] 295 [facility] Potassium [Moles/Vol] 3.9 mmol/L 3.5 - 5.0 mmol/L [facility] Sodium [Moles/Vol] 141 mmol/L 135 - 145 mmol/L [facility] Urea nitrogen [Mass/Vol] 13 mg/dL 7 - 25 mg/dL [facility] Urea nitrogen/Creatinine [Mass ratio] 11 mg/mg [facility] Anion gap [Moles/Vol] 13 mmol/L Normal 7-17 [facility] Comment on above: Performed By: #### C HM7, IPB, MGO, HFP ####[facility] (DEFAULT)[address] [place] [address] Chloride [Moles/Vol] 113 mmol/L High 98-108 [facility] Comment on above: Performed By: #### C HM7, IPB, MGO, HFP ####[facility] (DEFAULT)[address] [place] [address] CO2 [Moles/Vol] 19 mmol/L Low 21-31 [facility] Comment on above: Performed By: #### C HM7, IPB, MGO, HFP ####[facility] (DEFAULT)[address] [place] [address] Creatinine [Mass/Vol] 1.22 mg/dL Normal 0.70-1.30 [facility] Comment on above: Performed By: #### C HM7, IPB, MGO, HFP ####[facility] (DEFAULT)[address] [place] [address] GFR/1.73 sq M.predicted among non-blacks MDRD (S/P/Bld) [Vol rate/Area] 71 mL/min/{1.73_m2} Normal >=60 [facility] Comment on above: Result Comment: Repo rted eGFR is based on the CKD-EPI 2020 equation using creatinine, age, and sex. Performed By: #### C HM7, IPB, MGO, HFP ####[facility] (DEFAULT)[address] [facility] [place] [address] Glucose [Mass/Vol] 107 mg/dL High 70-99 [facility] Comment on above: Performed By: #### C HM7, IPB, MGO, HFP ####[facility] (DEFAULT)[address] [facility] [place] [address] Osmolality [Osmolality] 295 mosm/kg Normal 278-305 [facility] Comment on above: Performed By: #### C HM7, IPB, MGO, HFP ####[facility] (DEFAULT)[address] [facility] [address] Potassium [Moles/Vol] 3.9 mmol/L Normal 3.5-5.0 [facility] Comment on above: Performed By: #### C HM7, IPB, MGO, HFP ####[facility] (DEFAULT)[address] [place] [address] Sodium [Moles/Vol] 141 mmol/L Normal 135-145 [facility] Comment on above: Performed By: #### C HM7, IPB, MGO, HFP ####[facility] (DEFAULT)[address] [place] [address] Urea nitrogen [Mass/Vol] 13 mg/dL Normal 7-25 [facility] Comment on above: Performed By: #### C HM7, IPB, MGO, HFP ####[facility] (DEFAULT)[address] [place] [address] Urea nitrogen/Creatinine [Mass ratio] 11 mg/mg Normal [facility] Comment on above: Performed By: #### C HM7, IPB, MGO, HFP ####[facility] (DEFAULT)[address] [place] [address] HEPATIC FUNCTION PANELon Albumin [Mass/Vol] 2.9 g/dL [...] [facility] Albumin [Mass/Vol] 2.9 g/dL Low 3.5-5.0 [facility] Comment on above: Performed By: #### C HM7, IPB, MGO, HFP ####[facility] (DEFAULT)[address] [place] [address] ALP [Catalytic activity/Vol] 111 U/L Normal 32-126 [facility] Comment on above: Performed By: #### C HM7, IPB, MGO, HFP ####[facility] (DEFAULT)[address] [place] [address] ALT [Catalytic activity/Vol] 18 U/L Normal 10-52 [facility] Comment on above: Performed By: #### C HM7, IPB, MGO, HFP ####[facility] (DEFAULT)[address] [place] [address] AST [Catalytic activity/Vol] 23 U/L Normal 10-39 [facility] Comment on above: Performed By: #### C HM7, IPB, MGO, HFP ####[facility] (DEFAULT)[address] [place] [address] Bilirubin [Mass/Vol] 0.8 mg/dL Normal <1.5 [facility] Comment on above: Performed By: #### C HM7, IPB, MGO, HFP ####[facility] (DEFAULT)[address] [place] [address] Bilirubin.indirect [Mass/Vol] 0.3 mg/dL High <0.3 [facility] Comment on above: Performed By: #### C HM7, IPB, MGO, HFP ####[facility] (DEFAULT)[address] [place] [address] Protein [Mass/Vol] 6.0 g/dL Low 6.4-8.3 [facility] Comment on above: Performed By: #### C HM7, IPB, MGO, HFP ####[facility] (DEFAULT)[address] [place] [address] MAGNESIUMon 09-07-2023 Interpretation and review of laboratory results Normal [facility] Magnesium [Mass/Vol] 1.7 mg/dL 1.6 - 2 .6 mg/dL [facility] Magnesium [Mass/Vol] 1.7 mg/dL Normal 1.6-2.6 [facility] Comment on above: Performed By: #### C HM7, IPB, MGO, HFP ####[facility] (DEFAULT)[address] [place] [address] No Panel Informationon 09-07 Interpretation and review of laboratory results Abnormal [facility] PHOSPHATE, INORGANICon 09-07 Interpretation and review of laboratory results Normal [facility] Phosphate [Mass/Vol] 4.4 mg/dL 2.2 - 4 .6 mg/dL [facility] Phosphorous 4.4 mg/dL Normal 2.2-4.6 [facility] Comment on above: Performed By: #### C HM7, IPB, MGO, HFP ####[facility] (DEFAULT)[address] [place] [address] TACROLIMUS LEVEL, TROUGH (WI E DRUG LEVEL)Ordered By: Elizabeth Maldonado on 09-07-2023 Interpretation and review of laboratory results Normal [facility] Tacrolimus (Bld) [Mass/Vol] 7.8 ng/mL [facility] TACROLIMUS LEVEL, TROUGH (WI E DRUG LEVEL)on 09-07-2023 Tacrolimus, Trough 7.8 ng/mL Normal Bone Susana ow Transplant: 4.0-12.0, Therapeutic: 5.0-15.0 [facility] Comment on above: Order Comment: Pleas e draw at specified interval PRIOR to dose. Do not hold dose to wait for level. Specimens batched twice per day, (M-F) and once per day weekendsMethod performed is a chemiluminescent microparticle immunoasssay on the [employer] i2000.The range is based on experience at [facility] and users should be aware that target concentrations vary widely depending on concomitant therapy, time post-transplant, and desired degree of immunosuppression. Performed By: #### T ACRO ####[facility] (DEFAULT)[address] [place] [address] CBC,PLATELETSon 09-06-2023 Erythrocyte distribution width (RBC) [Ratio] [...] Medical Center RBC (Bld) [#/Vol] 4.47 10*6/uL [facility] WBC (Bld) [#/Vol] 4.41 10*3/uL 3.73 - 10. 10 K/uL [facility] Hematocrit (Bld) [Volume fraction] 38.4 % Low 39.6-48.8 [facility] Comment on above: Performed By: #### H [facility] ####[facility] (DEFAULT)[address] [place] [address] Hemoglobin (Bld) [Mass/Vol] 11.9 g/dL Low 13.4-16.8 [facility] Comment on above: Performed By: #### H [facility] ####[facility] (DEFAULT)[address] [place] [address] MCV (RBC) [Entitic vol] 85.9 fL Normal 79.0-94.5 [facility] Comment on above: Performed By: #### H [facility] ####[facility] (DEFAULT)[address] [place] [address] Mean Cell Hgb 26.6 pg Normal 26.1-33.3 [facility] Comment on above: Performed By: #### H EMOGC ####[facility] (DEFAULT)[address] [place] [address] Mean Cell Hgb Conc 31.0 g/dL Low 31.9-36.5 [facility] Comment on above: Performed By: #### H EMOGC ####[facility] (DEFAULT)[address] [facility] [address] Platelet mean volume (Bld) [Entitic vol] 9.7 fL Normal 8.7-12.3 [facility] Comment on above: Performed By: #### H EMOGC ####[facility] (DEFAULT)[address] [facility] [place] [address] Platelets (Bld) [#/Vol] 181 10*3/uL Normal 146-337 [facility] Comment on above: Performed By: #### H EMOGC ####[facility] (DEFAULT)[address] [facility] [address] RBC (Bld) [#/Vol] 4.47 10*6/uL Normal 4.38-5.83 [facility] Comment on above: Performed By: #### H EMOGC ####[facility] (DEFAULT)[address] [facility] [address] RBC Distribution 13.4 % Normal 10.9-14.3 [facility] Comment on above: Performed By: #### H EMOGC ####[facility] (DEFAULT)[address] [facility] [address] WBC (Bld) [#/Vol] 4.41 10*3/uL Normal 3.73-10.10 [facility] Comment on above: Performed By: #### H EMOGC ####[facility] (DEFAULT)[address] [facility] [address] CHEM 7 (LYTES,BUN,CREA,GLUC) on 09-06-2023 Anion gap [Moles/Vol] 14 mmol/L 7 - 17 mmol/L [facility] Chloride [Moles/Vol] 109 mmol/L High 98 - 10 8 [facility] CO2 [Moles/Vol] 19 mmol/L Low 21 - 31 mmol/L [facility] Creatinine [Mass/Vol] 1.26 mg/dL 0.70 - 1.30 mg/dL [facility] eGFR, [facility]-EPI, [facility] 69 [facility] Glucose [Mass/Vol] 114 mg/dL High 70 - 99 mg/dL [facility] Osmolality Calc [Osmolality] 291 [facility] Potassium [Moles/Vol] 4.1 mmol/L 3.5 - [...] [Moles/Vol] 14 mmol/L Normal 7-17 [facility] Comment on above: Performed By: #### NATHANIEL RAMÍREZ, HFP ####[facility] (DEFAULT)[address] [place] [address] Chloride [Moles/Vol] 109 mmol/L High 98-108 [facility] Comment on above: Performed By: #### NATHANIEL RAMÍREZ, HFP ####[facility] (DEFAULT)[address] [place] [address] CO2 [Moles/Vol] 19 mmol/L Low 21-31 [facility] Comment on above: Performed By: #### NATHANIEL RAMÍREZ, HFP ####[facility] (DEFAULT)[address] [place] [address] Creatinine [Mass/Vol] 1.26 mg/dL Normal 0.70-1.30 [facility] Comment on above: Performed By: #### NATHANIEL RAMÍREZ, HFP ####[facility] (DEFAULT)[address] [place] [address] GFR/1.73 sq M.predicted among non-blacks MDRD (S/P/Bld) [Vol rate/Area] 69 mL/min/{1.73_m2} Normal >=60 [facility] Comment on above: Result Comment: Repo rted eGFR is based on the CKD-EPI 2020 equation using creatinine, age, and sex. Performed By: #### NATHANIEL RAMÍREZ, HFP ####[facility] (DEFAULT)[address] [place] [address] Glucose [Mass/Vol] 114 mg/dL High 70-99 [facility] Comment on above: Performed By: #### NATHANIEL RAMÍREZ, HFP ####[facility] (DEFAULT)[address] [place] [address] Osmolality [Osmolality] 291 mosm/kg Normal 278-305 [facility] Comment on above: Performed By: #### NATHANIEL RAMÍREZ, HFP ####[facility] (DEFAULT)[address] [place] [address] Potassium [Moles/Vol] 4.1 mmol/L Normal 3.5-5.0 [facility] Comment on above: Performed By: #### NATHANIEL RAMÍREZ, HFP ####[facility] (DEFAULT)[address] [place] [address] Sodium [Moles/Vol] 138 mmol/L Normal 135-145 [facility] Comment on above: Performed By: #### NATHANIEL RAMÍREZ, HFP ####[facility] (DEFAULT)[address] [place] [address] Urea nitrogen [Mass/Vol] 16 mg/dL Normal 7-25 [facility] Comment on above: Performed By: #### NATHANIEL RAMÍREZ, HFP ####[facility] (DEFAULT)[address] [facility] [place] [address] Urea nitrogen/Creatinine [Mass ratio] 13 mg/mg Normal [facility] Comment on above: Performed By: #### NATHANIEL RAMÍREZ, HFP ####[facility] (DEFAULT)[address] [place] [address] HEPATIC FUNCTION PANELon Albumin [Mass/Vol] 3.0 g/dL [...] Center Albumin [Mass/Vol] 3.0 g/dL Low 3.5-5.0 [facility] Comment on above: Performed By: #### NATHANIEL RAMÍREZ, HFP ####[facility] (DEFAULT)[address] [facility] [place] [address] ALP [Catalytic activity/Vol] 115 U/L Normal 32-126 [facility] Comment on above: Performed By: #### NATHANIEL RAMÍREZ, HFP ####[facility] (DEFAULT)[address] [facility] [place] [address] ALT [Catalytic activity/Vol] 25 U/L Normal 10-52 [facility] Comment on above: Performed By: #### NATHANIEL RAMÍREZ, HFP ####[facility] (DEFAULT)[address] [place] [address] AST [Catalytic activity/Vol] 31 U/L Normal 10-39 [facility] Comment on above: Performed By: #### NATHANIEL RAMÍREZ, HFP ####[facility] (DEFAULT)[address] [facility] [place] [address] Bilirubin [Mass/Vol] 1.0 mg/dL Normal <1.5 [facility] Comment on above: Performed By: #### NATHANIEL RAMÍREZ, HFP ####[facility] (DEFAULT)[address] [place] [address] Bilirubin.indirect [Mass/Vol] 0.3 mg/dL High <0.3 [facility] Comment on above: Performed By: #### NATHANIEL RAMÍREZ, HFP ####[facility] (DEFAULT)[address] [place] [address] Protein [Mass/Vol] 6.3 g/dL Low 6.4-8.3 [facility] Comment on above: Performed By: #### NATHANIEL RAMÍREZ, HFP ####[facility] (DEFAULT)[address] [place] [address] MAGNESIUMon 09-06-2023 Interpretation and review of laboratory results Normal [facility] Magnesium [Mass/Vol] 2.0 mg/dL 1.6 - 2 .6 mg/dL [facility] Magnesium [Mass/Vol] 2.0 mg/dL Normal 1.6-2.6 [facility] Comment on above: Performed By: #### NATHANIEL RAMÍREZ, HFP ####[facility] (DEFAULT)[address] [place] [address] No Panel Informationon 09-06 Interpretation and review of laboratory results Abnormal [facility] TACROLIMUS LEVEL, TROUGH (WI E DRUG LEVEL)on 09-06-2023 Interpretation and review of laboratory results Normal [facility] Tacrolimus (Bld) [Mass/Vol] 6.7 ng/mL [facility] Tacrolimus, Trough 6.7 ng/mL Normal Bone Susana ow Transplant: 4.0-12.0, Therapeutic: 5.0-15.0 [facility] Comment on above: Order Comment: Pleas e draw at specified interval PRIOR to dose. Do not hold dose to wait for level. Specimens batched twice per day, (M-F) and once per day weekendsMethod performed is a chemiluminescent microparticle immunoasssay on the [employer] i2000.The range is based on experience at [facility] and users should be aware that target concentrations vary widely depending on concomitant therapy, time post-transplant, and desired degree of immunosuppression. Performed By: #### T ACRO ####[facility] (DEFAULT)[address] [place] [address] CBC,PLATELETSon 09-05-2023 Erythrocyte distribution width (RBC) [Ratio] [...] Center RBC (Bld) [#/Vol] 4.14 10*6/uL Low [facility] WBC (Bld) [#/Vol] 4.24 10*3/uL 3.73 - 10. 10 K/uL [facility] Hematocrit (Bld) [Volume fraction] 35.6 % Low 39.6-48.8 [facility] Comment on above: Performed By: #### H EMOGC ####[facility] (DEFAULT)[address] [place] [address] Hemoglobin (Bld) [Mass/Vol] 11.4 g/dL Low 13.4-16.8 [facility] Comment on above: Performed By: #### H EMOGC ####[facility] (DEFAULT)[address] [place] [address] MCV (RBC) [Entitic vol] 86.0 fL Normal 79.0-94.5 [facility] Comment on above: Performed By: #### H EMO ####[facility] (DEFAULT)[address] [facility] [place] [address] Mean Cell Hgb 27.5 pg Normal 26.1-33.3 [facility] Comment on above: Performed By: #### H EMOGC ####[facility] (DEFAULT)[address] [place] [address] Mean Cell Hgb Conc 32.0 g/dL Normal 31.9-36.5 [facility] Comment on above: Performed By: #### H EMOGC ####[facility] (DEFAULT)[address] [facility] [place] [address] Platelet mean volume (Bld) [Entitic vol] 10.0 fL Normal 8.7-12.3 [facility] Comment on above: Performed By: #### H EMOGC ####[facility] (DEFAULT)[address] [place] [address] Platelets (Bld) [#/Vol] 170 10*3/uL Normal 146-337 [facility] Comment on above: Performed By: #### H EMOGC ####[facility] (DEFAULT)[address] [place] [address] RBC (Bld) [#/Vol] 4.14 10*6/uL Low 4.38-5.83 [facility] Comment on above: Performed By: #### H [facility] ####[facility] (DEFAULT)[address] [place] [address] RBC Distribution 13.5 % Normal 10.9-14.3 [facility] Comment on above: Performed By: #### H [facility] ####[facility] (DEFAULT)[address] [place] [address] WBC (Bld) [#/Vol] 4.24 10*3/uL Normal 3.73-10.10 [facility] Comment on above: Performed By: #### H [facility] ####[facility] (DEFAULT)[address] [place] [address] CHEM 7 (LYTES,BUN,CREA,GLUC) on 09-05-2023 Anion gap [...] eGFR, CKD-EPI, Male 60 Low - PINF [facility] Glucose [Mass/Vol] 111 mg/dL High 70 - 99 mg/dL [facility] Osmolality Calc [Osmolality] 286 [facility] Potassium [Moles/Vol] 4.2 mmol/L 3.5 - 5.0 mmol/L [facility] Sodium [Moles/Vol] 135 mmol/L 135 - 145 mmol/L [facility] Urea nitrogen [Mass/Vol] 18 mg/dL 7 - 25 mg/dL [facility] Urea nitrogen/Creatinine [Mass ratio] 13 mg/mg [facility] Anion gap [Moles/Vol] 12 mmol/L Normal 7-17 [facility] Comment on above: Performed By: #### H FP, CHM7, MGO ####[facility] (DEFAULT)[address] [place] [address] Chloride [Moles/Vol] 107 mmol/L Normal 98-108 [facility] Comment on above: Performed By: #### H FP, CHM7, MGO ####[facility] (DEFAULT)[address] [place] [address] CO2 [Moles/Vol] 20 mmol/L Low 21-31 [facility] Comment on above: Performed By: #### H FP, CHM7, MGO ####[facility] (DEFAULT)[address] [place] [address] Creatinine [Mass/Vol] 1.43 mg/dL High 0.70-1.30 [facility] Comment on above: Performed By: #### H FP, CHM7, MGO ####[facility] (DEFAULT)[address] [place] [address] GFR/1.73 sq M.predicted among non-blacks MDRD (S/P/Bld) [Vol rate/Area] 59 mL/min/{1.73_m2} Low >=60 [facility] Comment on above: Result Comment: Repo rted eGFR is based on the CKD-EPI 2020 equation using creatinine, age, and sex. Performed By: #### H FP, CHM7, MGO ####[facility] (DEFAULT)[address] [place] [address] Glucose [Mass/Vol] 111 mg/dL High 70-99 [facility] Comment on above: Performed By: #### H FP, CHM7, MGO ####[facility] (DEFAULT)[address] [place] [address] Osmolality [Osmolality] 286 mosm/kg Normal 278-305 [facility] Comment on above: Performed By: #### H ANTWAN, CHM7, MGO ####[facility] (DEFAULT)[address] [facility] [place] [address] Potassium [Moles/Vol] 4.2 mmol/L Normal 3.5-5.0 [facility] Comment on above: Performed By: #### H ANTWAN, CHM7, MGO ####[facility] (DEFAULT)[address] [facility] [place] [address] Sodium [Moles/Vol] 135 mmol/L Normal 135-145 [facility] Comment on above: Performed By: #### H ANTWAN, CHM7, MGO ####[facility] (DEFAULT)[address] [place] [address] Urea nitrogen [Mass/Vol] 18 mg/dL Normal 7-25 [facility] Comment on above: Performed By: #### H ANTWAN, CHM7, MGO ####[facility] (DEFAULT)[address] [facility] [place] [address] Urea nitrogen/Creatinine [Mass ratio] 13 mg/mg Normal [facility] Comment on above: Performed By: #### Lydia FP, CHM7, MGO ####[facility] (DEFAULT)[address] [place] [address], [place] [address] CONTINUOUS CARDIAC MONITORIN G STRIPon 09-05-2023 [facility] Albumin [Mass/Vol] 2.8 g/dL Low 3.5-5.0 [facility] Comment on above: Performed By: #### H FP, CHM7, MGO ####[facility] (DEFAULT)[address] [place] [address] ALP [Catalytic activity/Vol] 103 U/L Normal 32-126 [facility] Comment on above: Performed By: #### H FP, CHM7, MGO ####[facility] (DEFAULT)[address] [place] [address] ALT [Catalytic activity/Vol] 26 U/L Normal 10-52 [facility] Comment on above: Performed By: #### H FP, CHM7, MGO ####[facility] (DEFAULT)[address] [place] [address] AST [Catalytic activity/Vol] 38 U/L Normal 10-39 [facility] Comment on above: Performed By: #### H FP, CHM7, MGO ####[facility] (DEFAULT)[address] [place] [address] Bilirubin [Mass/Vol] 0.9 mg/dL Normal <1.5 [facility] Comment on above: Performed By: #### H FP, CHM7, MGO ####[facility] (DEFAULT)[address] [place] [address] Bilirubin.indirect [Mass/Vol] 0.1 mg/dL Normal <0.3 [facility] Comment on above: Performed By: #### H FP, CHM7, MGO ####[facility] (DEFAULT)[address] [place] [address] Protein [Mass/Vol] 6.1 g/dL Low 6.4-8.3 [facility] Comment on above: Performed By: #### H NATHANIEL MONCADA, MGO ####[facility] (DEFAULT)[address] [place] [address] HISTOPLASMA ANTIGEN, FLUIDon 09-05-2023 FH SOURCE BAL RML [facility] Histo FLD interpretation Negative [facility] Histoplasma Antigen, FLUID Not detected ng/mL [facility] HISTOPLASMA CAPSULATUM/BLAST OMYCES SPECIES,PCR FLUIDon 09-05-2023 HISTO/BLASTO RESULT Negative Not Applicable [facility] Specimen source Nom (Unsp spec) BAL RML [facility] IMMUNOPHENOTYPING, TISSUE/FL UIDon 09-05-2023 BKR DX CODE Use Ordering [facility] Flow Interpretation See Comment [facility] Flow Interpreted by: Yossi Perla MD, PhD [facility] MAGNESIUMon 09-05-2023 Interpretation and review of laboratory results Normal [facility] Magnesium [Mass/Vol] 1.7 mg/dL 1.6 - 2 .6 mg/dL [facility] Magnesium [Mass/Vol] 1.7 mg/dL Normal 1.6-2.6 [facility] Comment on above: Performed By: #### H NATHANEIL MONCADA, MGO ####[facility] (DEFAULT)[address] [place] [address] No Panel Informationon 09-05 Interpretation and review of laboratory results Abnormal [facility] TACROLIMUS LEVEL, TROUGH (WI E DRUG LEVEL)Ordered By: Raymundo Mehta on 09-05-2023 Interpretation and review of laboratory results Normal [facility] Tacrolimus (Bld) [Mass/Vol] 5.3 ng/mL [facility] TACROLIMUS LEVEL, TROUGH (WI E DRUG LEVEL)on 09-05-2023 Tacrolimus, Trough 5.3 ng/mL Normal Bone Susana ow Transplant: 4.0-12.0, Therapeutic: 5.0-15.0 [facility] Comment on above: Order Comment: Pleas e draw at specified interval PRIOR to dose. Do not hold dose to wait for level. Specimens batched twice per day, (M-F) and once per day weekendsMethod performed is a chemiluminescent microparticle immunoasssay on the [employer] i2000.The range is based on experience at [facility] and users should be aware that target concentrations vary widely depending on concomitant therapy, time post-transplant, and desired degree of immunosuppression. Performed By: #### T ACRO ####[facility] (DEFAULT)[address] [place] [address] ARTERIAL BLOOD GAS (FULL GOSS EL)on 09-04-2023 [...] Center Specimen source Nom (Unsp spec) Arterial [facility] Base Excess -1.2 mmol/L Normal -3.0-3.0 [facility] Comment on above: Performed By: #### Vale UNDERWOOD ####[facility] (DEFAULT)[address] [place] [address] Carboxyhemoglobin 0.7 % Normal <=1.5 [facility] Comment on above: Performed By: #### Vale UNDERWOOD ####[facility] (DEFAULT)[address] [place] [address] Glucose [Mass/Vol] 159 mg/dL High 70-99 [facility] Comment on above: Performed By: #### Vale UNDERWOOD ####[facility] (DEFAULT)[address] [place] [address] HCO3 (Bld) [Moles/Vol] 22 mmol/L Normal 22-28 [facility] Comment on above: Performed By: #### Vale UNDERWOOD ####[facility] (DEFAULT)[address] [place] [address] Hematocrit (Bld) [Volume fraction] 38.0 % Low 40.2-50.4 [facility] Comment on above: Performed By: #### G YASMINE ####[facility] (DEFAULT)[address] [place] [address] Hemoglobin (Bld) [Mass/Vol] 12.6 g/dL Low 13.4-16.8 [facility] Comment on above: Performed By: #### G ASALL ####[facility] (DEFAULT)[address] [place] [address] Ionized Calcium, Whole Blood 4.79 mg/dL Normal 4.60-5.30 [facility] Comment on above: Performed By: #### G YASMINE ####[facility] (DEFAULT)[address] [place] [address] Lactate, Whole Blood 2.0 mmol/L High 0.5-1.6 [facility] Comment on above: Performed By: #### Vale UNDERWOOD ####[facility] (DEFAULT)[address] [place] [address] Methemoglobin 0.0 % Normal <=1.5 [facility] Comment on above: Performed By: #### G YASMINE ####[facility] (DEFAULT)[address] [place] [address] Oxyhemoglobin 91 % Low 94-98 [facility] Comment on above: Performed By: #### G YASMINE ####[facility] (DEFAULT)[address] [facility] [place] [address] pCO2 30 mm Hg Low 32-48 [facility] Comment on above: Performed By: #### G ASAASHISH ####[facility] (DEFAULT)[address] [place] [address] pH (Bld) 7.48 [pH] High 7.35-7.45 [facility] Comment on above: Performed By: #### G ASAASHISH ####[facility] (DEFAULT)[address] [place] [address] pO2 62 mm Hg Low 83-108 [facility] Comment on above: Performed By: #### G ASALL ####[facility] (DEFAULT)[address] [place] [address] Potassium [Moles/Vol] 4.2 mmol/L Normal 3.5-5.0 [facility] Comment on above: Performed By: #### G ASALL ####[facility] (DEFAULT)[address] [place] [address] sO2 92 % Low 94-98 [facility] Comment on above: Performed By: #### G ASALL ####[facility] (DEFAULT)[address] [place] [address] Sodium [Moles/Vol] 130 mmol/L Low 135-145 [facility] Comment on above: Performed By: #### G ASALL ####[facility] (DEFAULT)[address] [place] [address] Specimen type Nom (Spec) Arterial Normal [facility] Comment on above: Performed By: #### G ASALL ####[facility] (DEFAULT)[address] [place] [address] Bacteria identified Respirat ory culture Nom (Unsp spec)on 09-04-2023 Bacteria identified Cx Nom (Unsp spec) NO GROWTH DAY 2 OF 2 [facility] Microscopic observation Other stain Nom (Unsp spec) Cytocentrifuge preparation [facility] Microscopic observation Other stain Nom (Unsp spec) Neutrophils, Rare [facility] Microscopic observation Other stain Nom (Unsp spec) Red Blood Cells Present [facility] Microscopic observation Other stain Nom (Unsp spec) No organisms seen [facility] Bacteria identified Respirat ory culture Nom (Unsp spec)Ordered By: Jose Salgado on 09-04-2023 Bacteria identified Cx Nom (Unsp spec) NO [facility] DAY [facility] Other stain Nom (Unsp spec) Cytocentrifuge preparation [facility] Microscopic observation Other stain Nom (Unsp spec) Neutrophils, Moderate [facility] Microscopic observation Other stain Nom (Unsp spec) Red Blood Cells Present [facility] Microscopic observation Other stain Nom (Unsp spec) No organisms seen [facility] CBC,PLATELETSon 09-04-2023 Erythrocyte distribution width (RBC) [Ratio] [...] Medical Center RBC (Bld) [#/Vol] 4.41 10*6/uL [facility] WBC (Bld) [#/Vol] 4.57 10*3/uL 3.73 - 10. 10 K/uL [facility] Hematocrit (Bld) [Volume fraction] 38.7 % Low 39.6-48.8 [facility] Comment on above: Performed By: #### H [facility] ####[facility] (DEFAULT)[address] [place] [address] Hemoglobin (Bld) [Mass/Vol] 12.3 g/dL Low 13.4-16.8 [facility] Comment on above: Performed By: #### H EMOGC ####[facility] (DEFAULT)[address] [facility] [address] MCV (RBC) [Entitic vol] 87.8 fL Normal 79.0-94.5 [facility] Comment on above: Performed By: #### H EMOGC ####[facility] (DEFAULT)[address] [place] [address] Mean Cell Hgb 27.9 pg Normal 26.1-33.3 [facility] Comment on above: Performed By: #### H EMOGC ####[facility] (DEFAULT)[address] [facility] [address] Mean Cell Hgb Conc 31.8 g/dL Low 31.9-36.5 [facility] Comment on above: Performed By: #### H EMO ####[facility] (DEFAULT)[address] [facility] [address] Platelet mean volume (Bld) [Entitic vol] 9.8 fL Normal 8.7-12.3 [facility] Comment on above: Performed By: #### H EMOGC ####[facility] (DEFAULT)[address] [place] [address] Platelets (Bld) [#/Vol] 173 10*3/uL Normal 146-337 [facility] Comment on above: Performed By: #### H EMOGC ####[facility] (DEFAULT)[address] [facility] [address] RBC (Bld) [#/Vol] 4.41 10*6/uL Normal 4.38-5.83 [facility] Comment on above: Performed By: #### H EMOGC ####[facility] (DEFAULT)[address] [facility] [address] RBC Distribution 13.2 % Normal 10.9-14.3 [facility] Comment on above: Performed By: #### H [facility] ####[facility] (DEFAULT)[address] [place] [address] WBC (Bld) [#/Vol] 4.57 10*3/uL Normal 3.73-10.10 [facility] Comment on above: Performed By: #### H [facility] ####[facility] (DEFAULT)[address] [place] [address] CHEM 7 (LYTES,BUN,CREA,GLUC) on 09-04-2023 Anion gap [Moles/Vol] 16 mmol/L 7 - 17 mmol/L [facility] Chloride [Moles/Vol] 104 mmol/L 98 - 10 8 mmol/L [facility] CO2 [Moles/Vol] 18 mmol/L Low 21 - 31 mmol/L [facility] Creatinine [Mass/Vol] 1.22 mg/dL 0.70 - 1.30 mg/dL [facility] eGFR, CKD-EPI, Male 71 - PINF [facility] Glucose [Mass/Vol] 124 mg/dL High 70 - 99 mg/dL [facility] Osmolality Calc [Osmolality] 284 [facility] Potassium [Moles/Vol] 3.9 mmol/L 3.5 - 5.0 mmol/L [facility] Sodium [Moles/Vol] 134 mmol/L Low 135 - 145 mmol/L [facility] Urea nitrogen [Mass/Vol] 15 mg/dL 7 - 25 mg/dL [facility] Urea nitrogen/Creatinine [Mass ratio] 12 mg/mg [facility] Anion gap [Moles/Vol] 16 mmol/L Normal 7-17 [facility] Comment on above: Performed By: #### NATHANIEL RAMÍREZ, HFP ####[facility] (DEFAULT)[address] [place] [address] Chloride [Moles/Vol] 104 mmol/L Normal 98-108 [facility] Comment on above: Performed By: #### NATHANIEL RAMÍREZ, HFP ####[facility] (DEFAULT)[address] [facility] [place] [address] CO2 [Moles/Vol] 18 mmol/L Low 21-31 [facility] Comment on above: Performed By: #### NATHANIEL RAMÍREZ, HFP ####[facility] (DEFAULT)[address] [place] [address] Creatinine [Mass/Vol] 1.22 mg/dL Normal 0.70-1.30 [facility] Comment on above: Performed By: #### NATHANIEL RAMÍREZ, HFP ####[facility] (DEFAULT)[address] [place] [address], [place] [address] GFR/1.73 sq M.predicted among non-blacks MDRD (S/P/Bld) [Vol rate/Area] 71 mL/min/{1.73_m2} Normal >=60 [facility] Comment on above: Result Comment: Repo rted eGFR is based on the CKD-EPI 2020 equation using creatinine, age, and sex. Performed By: #### NATHANIEL RAMÍREZ, HFP ####[facility] (DEFAULT)[address] [place] [address] Glucose [Mass/Vol] 124 mg/dL High 70-99 [facility] Comment on above: Performed By: #### NATHANIEL RAMÍREZ, HFP ####[facility] (DEFAULT)[address] [facility] [place] [address] Osmolality [Osmolality] 284 mosm/kg Normal 278-305 [facility] Comment on above: Performed By: #### NATHANIEL RAMÍREZ, HFP ####[facility] (DEFAULT)[address] [facility] [place] [address] Potassium [Moles/Vol] 3.9 mmol/L Normal 3.5-5.0 [facility] Comment on above: Performed By: #### NATHANIEL RAMÍREZ, HFP ####[facility] (DEFAULT)[address] [place] [address] Sodium [Moles/Vol] 134 mmol/L Low 135-145 [facility] Comment on above: Performed By: #### M NATHANIEL BLOOM, HFP ####[facility] (DEFAULT)[address] [place] [address] Urea nitrogen [Mass/Vol] 15 mg/dL Normal 7-25 [facility] Comment on above: Performed By: #### M NATHANIEL BLOOM, HFP ####[facility] (DEFAULT)[address] [facility] [place] [address] Urea nitrogen/Creatinine [Mass ratio] 12 mg/mg Normal [facility] Comment on above: Performed By: #### NATHANIEL RAMÍREZ, HFP ####[facility] (DEFAULT)[address] [place] [address] CMV PCR,FLUIDS,URINE,EYE ETC on 09-04-2023 Specimen source Nom (Unsp spec) BAL LLL [facility] Specimen source Nom (Unsp spec) BAL L [facility] HEPATIC [...] Center Albumin [Mass/Vol] 3.0 g/dL Low 3.5-5.0 [facility] Comment on above: Performed By: #### NATHANIEL RAMÍREZ, HFP ####[facility] (DEFAULT)[address] [place] [address] ALP [Catalytic activity/Vol] 112 U/L Normal 32-126 [facility] Comment on above: Performed By: #### TJ RAMÍREZ7, HFP ####[facility] (DEFAULT)[address] [place] [address] ALT [Catalytic activity/Vol] 22 U/L Normal 10-52 [facility] Comment on above: Performed By: #### NATHANIEL RAMÍREZ, HFP ####[facility] (DEFAULT)[address] [place] [address] AST [Catalytic activity/Vol] 30 U/L Normal 10-39 [facility] Comment on above: Performed By: #### NATHANIEL RAMÍREZ, HFP ####[facility] (DEFAULT)[address] [place] [address] Bilirubin [Mass/Vol] 1.2 mg/dL Normal <1.5 [facility] Comment on above: Performed By: #### NATHANIEL RAMÍREZ, HFP ####[facility] (DEFAULT)[address] [place] [address] Bilirubin.indirect [Mass/Vol] 0.4 mg/dL High <0.3 [facility] Comment on above: Performed By: #### NATHANIEL RAMÍREZ, HFP ####[facility] (DEFAULT)[address] [place] [address] Protein [Mass/Vol] 6.4 g/dL Normal 6.4-8.3 [facility] Comment on above: Performed By: #### NATHANIEL RAMÍREZ, HFP ####[facility] (DEFAULT)[address] [place] [address] LEGIONELLA PCRon 09-04-2023 Legionella sp rRNA Probe Ql (Unsp spec) Negative Not Applicable [facility] Specimen source Nom (Unsp spec) BAL RML [facility] - Microbiology an d Antimicrobial susceptibilityon 09-04-2023 CMV DNA ESTELITA+probe Ql (Unsp spec) Negative Negative [facility] MAGNESIUMon 09-04-2023 Magnesium [Mass/Vol] 1.4 mg/dL Low 1.6 - 2 .6 mg/dL [facility] Magnesium [Mass/Vol] 1.4 mg/dL Low 1.6-2.6 [facility] Comment on above: Performed By: #### M GO, CHM7, HFP ####[facility] (DEFAULT)[address] [place] [address] No Panel Informationon 09-04 Annotation comment [Interpretation] Narrative DNR [facility] PN Report Status DNR [facility] Pneumocystis jiroveci,PCR result Negative Not Applicable [facility] Interpretation and review of laboratory results Abnormal [facility] PNEUMOCYSTIS JIROVECI,PCRon 09-04-2023 Specimen source Nom (Unsp [...] Medical Center Work Phone: TACROLIMUS LEVEL, TROUGH (WI E DRUG LEVEL)on 09-04-2023 Interpretation and review of laboratory results Abnormal [facility] Tacrolimus (Bld) [Mass/Vol] 3.6 ng/mL Low [facility] Tacrolimus, Trough 3.6 ng/mL Low Bone Susana ow Transplant: 4.0-12.0, Therapeutic: 5.0-15.0 [facility] Comment on above: Order Comment: Pleas e draw at specified interval PRIOR to dose. Do not hold dose to wait for level. Specimens batched twice per day, (M-F) and once per day weekendsMethod performed is a chemiluminescent microparticle immunoasssay on the [employer] i2000.The range is based on experience at [facility] and users should be aware that target concentrations vary widely depending on concomitant therapy, time post-transplant, and desired degree of immunosuppression. Performed By: #### T ACRO ####[facility] (DEFAULT)[address] [place] [address] XR CHEST PORTABLEon 09-04-20 XR CHEST PORTABLE Normal [facility] ASPERGILLUS ANTIGEN, BALon 1 Galactomannan Ag IA Qn (Unsp spec) <0.500 [facility] Galactomannan Ag IA Qn (Unsp spec) <0.500 [facility] BAL CONSULTOrdered By: Noa Peralta on 09-03-2023 [...] Jame (Unsp spec) [Interp] Leonardo Peralta MD [facility] BRONCHOSCOPYon 09-03-2023 LAB, [facility] CBC,PLATELETSon 09-03-2023 Erythrocyte distribution width (RBC) [...] Medical Center RBC (Bld) [#/Vol] 4.61 10*6/uL [facility] WBC (Bld) [#/Vol] 4.36 10*3/uL 3.73 - 10. 10 K/uL [facility] Hematocrit (Bld) [Volume fraction] 39.6 % Normal 39.6-48.8 [facility] Comment on above: Performed By: #### H EMOGC ####[facility] (DEFAULT)[address] [place] [address] Hemoglobin (Bld) [Mass/Vol] 12.8 g/dL Low 13.4-16.8 [facility] Comment on above: Performed By: #### H EMOGC ####[facility] (DEFAULT)[address] [place] [address] MCV (RBC) [Entitic vol] 85.9 fL Normal 79.0-94.5 [facility] Comment on above: Performed By: #### H EMOGC ####[facility] (DEFAULT)[address] [place] [address] Mean Cell Hgb 27.8 pg Normal 26.1-33.3 [facility] Comment on above: Performed By: #### H EMOGC ####[facility] (DEFAULT)[address] [place] [address] Mean Cell Hgb Conc 32.3 g/dL Normal 31.9-36.5 [facility] Comment on above: Performed By: #### H EMOGC ####[facility] (DEFAULT)[address] [place] [address] Platelet mean volume (Bld) [Entitic vol] 9.4 fL Normal 8.7-12.3 [facility] Comment on above: Performed By: #### H EMOGC ####[facility] (DEFAULT)[address] [place] [address] Platelets (Bld) [#/Vol] 222 10*3/uL Normal 146-337 [facility] Comment on above: Performed By: #### H [facility] ####[facility] (DEFAULT)[address] [place] [address] RBC (Bld) [#/Vol] 4.61 10*6/uL Normal 4.38-5.83 [facility] Comment on above: Performed By: #### H [facility] ####[facility] (DEFAULT)[address] [place] [address] RBC Distribution 13.4 % Normal 10.9-14.3 [facility] Comment on above: Performed By: #### H [facility] ####[facility] (DEFAULT)[address] [place] [address] WBC (Bld) [#/Vol] 4.36 10*3/uL Normal 3.73-10.10 [facility] Comment on above: Performed By: #### H [facility] ####[facility] (DEFAULT)[address] [place] [address] CHEM 7 (LYTES,BUN,CREA,GLUC) on 09-03-2023 Anion gap [...] Center eGFR, CKD-EPI, Male 73 - PINF [facility] Glucose [Mass/Vol] 112 mg/dL High 70 - 99 mg/dL [facility] Osmolality Calc [Osmolality] 288 [facility] Potassium [Moles/Vol] 4.1 mmol/L 3.5 - 5.0 mmol/L [facility] Sodium [Moles/Vol] 136 mmol/L 135 - 145 mmol/L [facility] Urea nitrogen [Mass/Vol] 17 mg/dL 7 - 25 mg/dL [facility] Urea nitrogen/Creatinine [Mass ratio] 14 mg/mg [facility] Anion gap [Moles/Vol] 12 mmol/L Normal 7-17 [facility] Comment on above: Performed By: #### Rod BLOOM CHM7, HFP ####[facility] (DEFAULT)[address] [place] [address] Chloride [Moles/Vol] 104 mmol/L Normal 98-108 [facility] Comment on above: Performed By: #### TJ RAMÍREZ7, HFP ####[facility] (DEFAULT)[address] [facility] [address] CO2 [Moles/Vol] 24 mmol/L Normal 21-31 [facility] Comment on above: Performed By: #### TJ RAMÍREZ7, HFP ####[facility] (DEFAULT)[address] [facility] [address] Creatinine [Mass/Vol] 1.20 mg/dL Normal 0.70-1.30 [facility] Comment on above: Performed By: #### Rod BLOOM CHM7, HFP ####[facility] (DEFAULT)[address] [facility] [address] GFR/1.73 sq M.predicted among non-blacks MDRD (S/P/Bld) [Vol rate/Area] 73 mL/min/{1.73_m2} Normal >=60 [facility] Comment on above: Result Comment: Repo rted eGFR is based on the CKD-EPI 2020 equation using creatinine, age, and sex. Performed By: #### Rod BLOOM CHM7, HFP ####[facility] (DEFAULT)[address] [place] [address] Glucose [Mass/Vol] 112 mg/dL High 70-99 [facility] Comment on above: Performed By: #### NATHANIEL RAMÍREZ, HFP ####[facility] (DEFAULT)[address] [place] [address] Osmolality [Osmolality] 288 mosm/kg Normal 278-305 [facility] Comment on above: Performed By: #### NATHANIEL RAMÍREZ, HFP ####[facility] (DEFAULT)[address] [place] [address] Potassium [Moles/Vol] 4.1 mmol/L Normal 3.5-5.0 [facility] Comment on above: Performed By: #### NATHANIEL RAMÍREZ, HFP ####[facility] (DEFAULT)[address] [place] [address] Sodium [Moles/Vol] 136 mmol/L Normal 135-145 [facility] Comment on above: Performed By: #### NATHANIEL RAMÍREZ, HFP ####[facility] (DEFAULT)[address] [place] [address] Urea nitrogen [Mass/Vol] 17 mg/dL Normal 7-25 [facility] Comment on above: Performed By: #### NATHANIEL RAMÍREZ, HFP ####[facility] (DEFAULT)[address] [place] [address] Urea nitrogen/Creatinine [Mass ratio] 14 mg/mg Normal [facility] Comment on above: Performed By: #### NATHANIEL RAMÍREZ, HFP ####[facility] (DEFAULT)[address] [place] [address] CYTOLOGY, NON-GYNOrdered By: Sherice Jimenez on 09-03-2023 CYTOLOGIC DIAGNOSIS o0rxwMTbXVEoyMTxMLArB7frssW mABTeqVDxG4SibrduWRvmCL2gCD 6ogDmkzBGorTZaTBUdZtJwr8qjp 722yJYvr0qcFHCMvlnitBs8u7ed MRJWzJ4zh1b1mL94CFCfiT3ovPP kJRauyjJhZJpszpQfksVqRkx7QC O7bCudZuwadAV0uTTioNG2CEfig 1CzmGnloBbfZFC5PQRkOhluJCkl tIB3gPUobOoyxUUlCS7wa1edeRB 9nfDrBLR9mLeljXF7jSgsnvegs2 lesMX8cFZ0XDhzoTW1XAneYqEmH 5maANOsrE9zY44rI3jnIPEafUhd KLraXGVkjGN2AXW5KCUch9soVPK wiLSooQMhVyUdHAtjDit3r4huLR ZkoC13dJCytcH1mCcuOCrkwBK8C P87BBihd5FmNSJukCzmJQCitD9i YzIzXGxldmVsbmZjbjIzXGxldmV dcwNrXScpvgGgk4CapmBeeUE7AV rozmIlgOR1vAunXWVxK9R1O816W QrjlvOwagIjBuFzmzr2IITghDyt bGlzdGxldmVsXGxldmVsbmZjMjN mkOK3KMdkLqCdYyLldLK7PAvbZz LbiDW9QXjwhPGatNZ1NEzmmBE8O Wv5FZl4ACidXIzgBfr1iVfuzKW8 HNvfhX4pMMFcW37tJzA3u1lbvCS 2eKK6SGwicFO5DZpxTkUeN3vmPP YanV5eB07sW8hsRXNpeAgaYAnaZ AVwcDJ4WZB4TKAjg0qcQUBrqRPl iLHhBcYdJRanLqp6o4qhRZZosZ9 3pJXbhlQ8sUueMN16SLxsw3OoWJ CtzXxxVZAeoI2zKqLfZOighrUee mZjbjIzXGxldmVsamMwXGxldmVs o3CmknVmvMT0JWcasvOorJN1pQy uYLHrT7Y9V095KHmiglFipqZzDr Rxizt0BAPjtEcxmWakvEalxeLcK UvwbwTpttDbRfJqaRC5HKuwRnUb PzOkfGP1ZAekTpYuvHA0VCvlnUY goJN6KVbteOW6WRg4HQu6LHfmMJ aqCjt8qHjjyVH2CDpyjV6iPOGxA 88dKmD2t5xwnTZ3rCJ0GVxvcZQ2 ZIqiSlBcA7olBRVmuD5lX41lU1o jBCLzbXyfFLigCIRzfOW8ZES2IS Gri5flJFXvtBVjjVFwIiHxCNtzB ih4z5soVXCviO99uRHuraI2sNna QV64XLowu5WvWPNfoVvlNVWzfU7 mYzIzXGxldmVsbmZjbjIzXGxldm WvauEzMUxiaaLpt5RsrhTjvUT9Z DagldSndAD4pYkoGBQvG9W5A566 SBjxbcZktuLtTbXbkod4NJMqvTp cbGlzdGxldmVsXGxldmVsbmZjMj JxuXA5UJncBiYoUcYhgFZ9QUelP pLenKT9OVoerLKpzCS7WVerfZX8 RKa8XAl9WXjbDKctIrp9tRflcRF 4TZkklG5oANUjG38dHuN0bQ42NM jguAeybE74AHWhwNJzfMAnsGD8V UnrbLmgdX99JSTuwSXbTAbbq6Dr MTCyVoS5XHD4GRLlbUnhpM29MJK epXQrL010sfQgJHoeUF44IZQkmI UnliPaFdEnQXLkwHVpqQO1LIIyK R7mzddrSDqqQMmpQIAcfyO9BEMl uESbT7NkROKwYX1pixnzVSC7THq iEBIzOPY2HxEbCGZrp2Rvqdf0Pw BstLo2i0prQARlOBRgyXedj0fyH NA1TMKstRUiS2sfdS8zOXGdQO2n nzwjo8kkGSbiIWoyWTOwsZP6rmL 5KIJpvVMbX2RdwI5gFHWyVSZcub KrtAingW8cVvuczcNxUFWdQXYTQ rMDVw7CK2yKKZbCAH7FQYEqGZCG EExHGJKSCEMGKHyYO9TMZArDUxH mVWAfMZZvK1eEH5iXS6puLpkkNh BeLCkvMDRwBeZpT9KtDCLydlvzW UWwYDJQIO7DOGUCJPNNDe0JYWS3 SULzkrvyqZY6JXzysnMbmMx8fSM xrUlziP3mRhzfmxOkYSPdEDWZab NTNJpuB11xwzEeC9LprRMzBDZnO RudMA61vNPhCZCoaCYiQIt0kT6q URijzCgsawGLxXXobQ6biwemUTy jZjBccGFyXGxpMFxsczBccGFyfQ == [facility] Work Phone: Case Report [facility] Work Phone: Clinical History m9mnvHOoPFEifHLkKLVv Y7toroX bIJOvcIRmM6MzxnxjVCorPT1tHG 9riZgfsHMziMCoBZPzJsMqh3wcd 944wBBzp7nmMURIrkvxjCg6sPoq K35qo5T6YxcwK8flIUQgIJtsZLC tATmndBGkQYy8ZJXjoZRjxsSgPj KmSJJcqARrbZO7SKVtNN0tmrpiK MovGNtzKBNyahP7JNGwuODvI6Ss IIJkAK7sdzpvSHD4YAypURKqGGM 5KqSsYNOjh6Amezl9AlTvmQh9k8 deXWHpGGRxlUbwy5qcQVA8WKDct UKrN8uecV0bTCSnWB7grvmfb1oc DPouAAtiLTYklKW0aiS6ECRrbEL jF1DnmH1tAPIdPEPcmaAvsGtlrI 5cZnMyMFxjZjEgUmVuYWwgdHJhb pFahHCzxD8wGLIiqf5= [facility] Work Phone: For Immediate Release to Patient's MyChart? Yes Yes [facility] Work Phone: Gross Description m0mwiSOqZGFelJCkRLRl P3zwryK yYZCecTHvU2UmjszkBWqiKL4iAG 6uyDwhpKVfjCJgAAJxFgWlr8qaf 806fLLpb0zhGEGDnpmriNd1cXky W50uu5L9LeyyC70zyAMvNFO2DKP nRMCpdYCpEJOsAMQ2DKAaaNKpE8 xnMPHxKR6fsnahIAivGXkgQKMof CH5DEUmsDDbJ2ZbDRNlWXhcGNIj ivp7LgRlHh6lrHKmgVjzXHqlJAK kXHBsYWluXGZzMjAgTExMIEJBTF toAWJmOUYimQNmBTu3FOWttF7fu FZqjxHeuJRgjI2smDxtPTneOFOm QUKSNHGxvKauRUARXNDxd9YpcJ5 ccGFyXHBhcmRccGFyXHBhcn0= [facility] [...] [facility] Albumin [Mass/Vol] 3.2 g/dL Low 3.5-5.0 [facility] Comment on above: Performed By: #### NATHANIEL RAMÍREZ, HFP ####[facility] (DEFAULT)[address] [place] [address] ALP [Catalytic activity/Vol] 118 U/L Normal 32-126 [facility] Comment on above: Performed By: #### NATHANIEL RAMÍREZ, HFP ####[facility] (DEFAULT)[address] [place] [address] ALT [Catalytic activity/Vol] 25 U/L Normal 10-52 [facility] Comment on above: Performed By: #### NATHANIEL RAMÍREZ, HFP ####[facility] (DEFAULT)[address] [place] [address] AST [Catalytic activity/Vol] 32 U/L Normal 10-39 [facility] Comment on above: Performed By: #### NATHANIEL RAMÍREZ, HFP ####[facility] (DEFAULT)[address] [place] [address] Bilirubin [Mass/Vol] 1.0 mg/dL Normal <1.5 [facility] Comment on above: Performed By: #### M GO, CHM7, HFP ####[facility] (DEFAULT)[address] [place] [address] Bilirubin.indirect [Mass/Vol] 0.3 mg/dL High <0.3 [facility] Comment on above: Performed By: #### M MERLE CHM7, HFP ####[facility] (DEFAULT)[address] [place] [address] Protein [Mass/Vol] 6.5 g/dL Normal 6.4-8.3 [facility] Comment on above: Performed By: #### M MERLE CHM7, HFP ####[facility] (DEFAULT)[address] [place] [address] HISTOPLASMA AND BLASTOMYCES ANTIGEN, ENZYME IMMUNOASSAY, SERMon 09-03-2023 Histoplasma/Blastomy antonia Ag Result Detected Critically abnormal Not Detected [facility] Histoplasma/Blastomy antonia Ag Value 5.3 ng/mL [facility] Interpretation and review of laboratory results Abnormal [facility] IMMUNOPHENOTYPING, TISSUE/FL UIDon 09-03-2023 BKR DX CODE Use Ordering Normal [facility] Comment on above: Order Comment: Dilan gregory lab add on to specimen collected yesterdayIMMUNOPHENOTYPING DIAGNOSISPATIENT NAME: GEORGE SLATER: 1970MRN: [id number]#: [id number] BY: Yossi Perla M.D,, Ph.D. [id number] TYPE: Bronchial Alveolar LavageLABORATORY INTERPRETATION:There is no [...] performance characteristicsdetermined [facility]. It has notbeen cleared or approved by the FDA. This laboratory is certifiedunder the Clinical Laboratory Improvement Amendments (CLIA)as qualified to perform high complexity clinical laboratorytesting. This test is used for clinical purposes. It should notbe regarded as investigational or for research.The [facility] Flow Cytometry Laboratory lower limitof CLL MRD detection is 0.1% of the gated lymphocytes. Performed By: #### G IPP ####[facility] (DEFAULT)[address] [place] [address] Flow Interpretation See Comment Normal [facility] Comment on above: Order Comment: Pleas e lab add on to specimen collected yesterdayIMMUNOPHENOTYPING DIAGNOSISPATIENT NAME: GEORGE SLATER: 1970MRN: [id number]#: [id number] BY: Yossi Perla M.D,, Ph.D. [id number] TYPE: Bronchial Alveolar LavageLABORATORY INTERPRETATION:There is no [...] performance characteristicsdetermined [facility]. It has notbeen cleared or approved by the FDA. This laboratory is certifiedunder the Clinical Laboratory Improvement Amendments (CLIA)as qualified to perform high complexity clinical laboratorytesting. This test is used for clinical purposes. It should notbe regarded as investigational or for research.The [facility] Flow Cytometry Laboratory lower limitof CLL MRD detection is 0.1% of the gated lymphocytes. Performed By: #### G IPP ####[facility] (DEFAULT)[address] [place] [address] Flow Interpreted by: Yossi Perla MD, PhD [facility] Comment on above: Order Comment: Pleas e lab add on to specimen collected yesterdayIMMUNOPHENOTYPING DIAGNOSISPATIENT NAME: GEOGRE SLATER: 1970MRN: [id number]#: [id number] BY: Yossi Perla M.D,, Ph.D. [id number] TYPE: Bronchial Alveolar LavageLABORATORY INTERPRETATION:There is no [...] performance characteristicsdetermined [facility]. It has notbeen cleared or approved by the FDA. This laboratory is certifiedunder the Clinical Laboratory Improvement Amendments (CLIA)as qualified to perform high complexity clinical laboratorytesting. This test is used for clinical purposes. It should notbe regarded as investigational or for research.The [facility] Flow Cytometry Laboratory lower limitof CLL MRD detection is 0.1% of the gated lymphocytes. Performed By: #### G IP ####[facility] ([facility])[address] [place], [place] [address] Interpretation and review of laboratory results Normal [facility] Magnesium [Mass/Vol] 1.6 mg/dL 1.6 - 2 .6 mg/dL [facility] Magnesium [Mass/Vol] 1.6 mg/dL Normal 1.6-2.6 [facility] Comment on above: Performed By: #### M , CHM7, HFP ####[facility] (DEFAULT)[address] [place] [address] No Panel Informationon 09-03 Interpretation and review of laboratory results Abnormal [facility] PARVOVIRUS (B19) DNA, PCR, B LOODon 09-03-2023 PARVOVIRUS B19 BY RAPID PCR Not detected Not Detected [facility] WI SPEC SOURCE Whole Blood [facility] Portable XR Chest Viewson RADIOLOGY RADIOLOGY [facility] Radiology Study observation (narrative) [facility] Portable XR Chest ViewsOrder ed By: [place] on 09-03-2023 [facility] Work Phone: XR CHEST PORTABLEon 09-03-20 23 XR CHEST PORTABLE Normal [facility] ACID FAST CULTUREon 09-02-20 23 Bacteria identified Cx Nom (Unsp spec) NO GROWTH DAY 42 OF 42 Normal [facility] Comment on above: Performed By: #### A FB ####[facility] (DEFAULT)[address] [place] [address] Fluorochrome Stain No acid Fast Bacillus Seen Normal [facility] Comment on above: Performed By: #### A FB ####[facility] (DEFAULT)[address] [place] [address] Bacteria identified Cx Nom (Unsp spec) NO GROWTH DAY 42 OF 42 Normal [facility] Comment on above: Order Comment: BAL A FB culture. Clinical suspicion for non-tuberculous mycobacteria Performed By: #### A FB ####[facility] (DEFAULT)[address] [place] [address] Fluorochrome Stain No acid Fast Bacillus Seen Normal [facility] Comment on above: Order Comment: BAL A FB culture. Clinical suspicion for non-tuberculous mycobacteria Performed By: #### A FB ####[facility] (DEFAULT)[address] [place] [address] ASPERGILLUS (GALACTOMANNAN), ANTIGENon 09-02-2023 Galactomannan Ag IA Qn <0.500 NINF [facility] ASPERGILLUS ANTIGEN, BALon 1 Aspergillus Galactomannan Antigen, BAL <0.500 Normal <0.5 [facility] Comment on above: Result Comment: ---- ADDITIONAL INFORMATION This is a qualitative test and the resulted index value isnot indicative of disease severity. Serial testing isrecommended for patients at high risk for invasiveaspergillosis.This assay was performed using the FDA-cleared [employer] Aspergillus Galactomannan EIA.Test Performed by:[place] [id number] Director: Rosendo Bose M.D. Ph.D.; CLIA# [id number] Performed By: #### X ASGFL ####[facility] (DEFAULT)[address] [place] [address] Aspergillus Galactomannan Antigen, BAL <0.500 Normal <0.5 [facility] Comment on above: Order Comment: BAL a spirgillus antigen Result Comment: ---- ADDITIONAL INFORMATION This is a qualitative test and the resulted index value isnot indicative of disease severity. Serial testing isrecommended for patients at high risk for invasiveaspergillosis.This assay was performed using the FDA-cleared [employer]Pl[employer] Aspergillus Galactomannan EIA.Test Performed by:[facility] [address] [place], [place] [address]Rit Director: Rosendo Bose M.D. Ph.D.; [facility]# [id number] Performed By: #### X ASGFL ####[facility] (DEFAULT)[address] [place] [address] ATYPICAL BACTERIAL PNEUMONIA ,PCROrdered By: Shari Contreras [...] Ql (Unsp spec) Not detected Not Detected [facility] ATYPICAL BACTERIAL PNEUMONIA ,PCRon 09-02-2023 Bordetella Parapertussis [...] Clinical Microbiology Laboratory at [facility]. It has not been cleared or approved by the FDA. The laboratory is required under CLIA as qualified to perform high-complexity testing. This test is used for clinical purposes. It should not be regarded as investigational or for research. Performed By: #### A TYPNE ####[facility] (DEFAULT)[address] [place] [address] Bordetella Pertussis Not detected Normal Not Detected [...] Clinical Microbiology Laboratory at [facility]. It has not been cleared or approved by the FDA. The laboratory is required under CLIA as qualified to perform high-complexity testing. This test is used for clinical purposes. It should not be regarded as investigational or for research. Performed By: #### A TYPNE ####[facility] (DEFAULT)[address] [address] Chlamydia Pneumoniae Not detected Normal Not Detected [...] Clinical Microbiology Laboratory at [facility]. It has not been cleared or approved by the FDA. The laboratory is required under CLIA as qualified to perform high-complexity testing. This test is used for clinical purposes. It should not be regarded as investigational or for research. Performed By: #### A TYPNE ####[facility] (DEFAULT)[address] [place] [address] Mycoplasma Pneumoniae Not detected Normal Not Detected [...] Clinical Microbiology Laboratory at [facility]. It has not been cleared or approved by the FDA. The laboratory is required under CLIA as qualified to perform high-complexity testing. This test is used for clinical purposes. It should not be regarded as investigational or for research. Performed By: #### A TYPNE ####[facility] (DEFAULT)[address] [place] [address] BAL CONSULTon 09-02-2023 ALVEOLAR MACROPHAGES 33 % Normal [facility] Comment on above: Order Comment: BAL c onsultIf > 15% lymphocytes - please send for flow. Performed By: #### B ALC ####[facility] (DEFAULT)[address] [place] [address] Bal comments Correlation with microbiology stains and cultures is recommended. Correlation with viral studies is recommended. [facility] Comment on above: Order Comment: BAL c onsultIf > 15% lymphocytes - please send for flow. Performed By: #### B ALC ####[facility] (DEFAULT)[address] [place] [address] Bal Diff Quik Stain Quality Check Acceptable [facility] Comment on above: Order Comment: BAL c onsultIf > 15% lymphocytes - please send for flow. Performed By: #### B ALC ####[facility] (DEFAULT)[address] [place] [address] Bal Reviewed By: Leonardo Peralta MD [facility] Comment on above: Order Comment: BAL c onsultIf > 15% lymphocytes - please send for flow. Performed By: #### B ALC ####[facility] (DEFAULT)[address] [place] [address] BKR BAL INTERPRETATION Cellular specimen comprised of alveolar macrophages and small lymphocytes. No definitive microorganisms are observed. Rare degenerating cells with changes suggestive of viral cytopathic effect are noted. Moderate degenerative changes. [facility] Comment on above: Order Comment: BAL c onsultIf > 15% lymphocytes - please send for flow. Performed By: #### B ALC ####[facility] (DEFAULT)[address] [place] [address] BKR DX CODE Use Ordering [facility] Comment on above: Order Comment: BAL c onsultIf > 15% lymphocytes - please send for flow. Performed By: #### B ALC ####[facility] (DEFAULT)[address] [facility] [place] [address] Eosinophils/100 WBC (Bld) 0 % Normal [facility] Comment on above: Order Comment: BAL c onsultIf > 15% lymphocytes - please send for flow. Performed By: #### B ALC ####[facility] (DEFAULT)[address] [place] [address] Lymphocytes/100 WBC (Bld) 49 % Normal [facility] Comment on above: Order Comment: BAL c onsultIf > 15% lymphocytes - please send for flow. Performed By: #### B ALC ####[facility] (DEFAULT)[address] [facility] [place] [address] Neutrophils/100 WBC (Bld) 18 % Normal [facility] Comment on above: Order Comment: BAL c onsultIf > 15% lymphocytes - please send for flow. Performed By: #### B ALC ####[facility] (DEFAULT)[address] [facility] [place] [address] ALVEOLAR MACROPHAGES 32 % Normal [facility] Comment on above: Order Comment: BAL c onsult for cell differential and pathologist review. Please do flow cytometry if > 12% lymphocytes Performed By: #### B ALC ####[facility] (DEFAULT)[address] [place] [address] Bal comments Correlation with microbiology stains and cultures is recommended. Normal [facility] Comment on above: Order Comment: BAL c onsult for cell differential and pathologist review. Please do flow cytometry if > 12% lymphocytes Performed By: #### B ALC ####[facility] (DEFAULT)[address] [place] [address] Bal Diff Quik Stain Quality Check Acceptable Normal [facility] Comment on above: Order Comment: BAL c onsult for cell differential and pathologist review. Please do flow cytometry if > 12% lymphocytes Performed By: #### B ALC ####[facility] (DEFAULT)[address] [place] [address] Bal Reviewed By: Leonardo Peralta MD [facility] Comment on above: Order Comment: BAL c onsult for cell differential and pathologist review. Please do flow cytometry if > 12% lymphocytes Performed By: #### B ALC ####[facility] (DEFAULT)[address] [place] [address] BKR BAL INTERPRETATION Cellular specimen comprised of alveolar macrophages and small lymphocytes. No definitive microorganisms are observed. Moderate degenerative changes. Normal [facility] Comment on above: Order Comment: BAL c onsult for cell differential and pathologist review. Please do flow cytometry if > 12% lymphocytes Performed By: #### B ALC ####[facility] (DEFAULT)[address] [place] [address] BKR DX CODE Use Ordering Normal [facility] Comment on above: Order Comment: BAL c onsult for cell differential and pathologist review. Please do flow cytometry if > 12% lymphocytes Performed By: #### B ALC ####[facility] (DEFAULT)[address] [facility] [place] [address] Eosinophils/100 WBC (Bld) 0 % Normal [facility] Comment on above: Order Comment: BAL c onsult for cell differential and pathologist review. Please do flow cytometry if > 12% lymphocytes Performed By: #### B ALC ####[facility] (DEFAULT)[address] [facility] [place] [address] Lymphocytes/100 WBC (Bld) 57 % Normal [facility] Comment on above: Order Comment: BAL c onsult for cell differential and pathologist review. Please do flow cytometry if > 12% lymphocytes Performed By: #### B ALC ####[facility] (DEFAULT)[address] [place] [address] Neutrophils/100 WBC (Bld) 11 % Normal [facility] Comment on above: Order Comment: BAL c onsult for cell differential and pathologist review. Please do flow cytometry if > 12% lymphocytes Performed By: #### B ALC ####[facility] (DEFAULT)[address] [place] [address] BRONCHOSCOPYon 09-02-2023 Radiology Study observation (narrative) [facility] Bacteria identified Cx Nom ( Bld)on 09-02-2023 Bacteria identified Cx Nom (Unsp spec) NO GROWTH DAY 5 OF 5 [facility] CBC,PLATELETSon 09-02-2023 Erythrocyte distribution width (RBC) [Ratio] [...] [facility] RBC (Bld) [#/Vol] 4.62 10*6/uL [facility] WBC (Bld) [#/Vol] 4.12 10*3/uL 3.73 - 10. 10 K/uL [facility] Hematocrit (Bld) [Volume fraction] 39.9 % Normal 39.6-48.8 [facility] Comment on above: Performed By: #### H [facility] ####[facility] (DEFAULT)[address] [place] [address] Hemoglobin (Bld) [Mass/Vol] 12.9 g/dL Low 13.4-16.8 [facility] Comment on above: Performed By: #### H EMOGC ####[facility] (DEFAULT)[address] [facility] [place] [address] MCV (RBC) [Entitic vol] 86.4 fL Normal 79.0-94.5 [facility] Comment on above: Performed By: #### H EMOGC ####[facility] (DEFAULT)[address] [facility] [place] [address] Mean Cell Hgb 27.9 pg Normal 26.1-33.3 [facility] Comment on above: Performed By: #### H EMOGC ####[facility] (DEFAULT)[address] [facility] [place] [address] Mean Cell Hgb Conc 32.3 g/dL Normal 31.9-36.5 [facility] Comment on above: Performed By: #### H EMOGC ####[facility] (DEFAULT)[address] [facility] [place] [address] Platelet mean volume (Bld) [Entitic vol] 9.5 fL Normal 8.7-12.3 [facility] Comment on above: Performed By: #### H EMOGC ####[facility] (DEFAULT)[address] [facility] [place] [address] Platelets (Bld) [#/Vol] 210 10*3/uL Normal 146-337 [facility] Comment on above: Performed By: #### H EMOGC ####[facility] (DEFAULT)[address] [place] [address] RBC (Bld) [#/Vol] 4.62 10*6/uL Normal 4.38-5.83 [facility] Comment on above: Performed By: #### H EMOGC ####[facility] (DEFAULT)[address] [facility] [address] RBC Distribution 13.2 % Normal 10.9-14.3 [facility] Comment on above: Performed By: #### H [facility] ####[facility] (DEFAULT)[address] [place] [address] WBC (Bld) [#/Vol] 4.12 10*3/uL Normal 3.73-10.10 [facility] Comment on above: Performed By: #### H [facility] ####[facility] (DEFAULT)[address] [place] [address] CHEM 7 (LYTES,BUN,CREA,GLUC) on 09-02-2023 Anion gap [Moles/Vol] 13 mmol/L 7 - 17 mmol[facility] Chloride [Moles/Vol] 105 mmol/L 98 - 10 8 mmol/L [facility] CO2 [Moles/Vol] 22 mmol/L 21 - 31 mmol/L [facility] Creatinine [Mass/Vol] 1.25 mg/dL 0.70 - 1.30 mg/dL [facility] eGFR, CKD-EPI, Male 70 - PINF [facility] Glucose [Mass/Vol] 105 mg/dL High 70 - 99 mg/dL [facility] Osmolality Calc [Osmolality] 287 [facility] Potassium [...] [facility] Anion gap [Moles/Vol] 13 mmol/L Normal 7-17 [facility] Comment on above: Performed By: #### H FP, MGO, CHM7 ####[facility] (DEFAULT)[address] [place] [address] Chloride [Moles/Vol] 105 mmol/L Normal 98-108 [facility] Comment on above: Performed By: #### H DOMENICA MONCADA CHM7 ####[facility] (DEFAULT)[address] [facility] [place] [address] CO2 [Moles/Vol] 22 mmol/L Normal 21-31 [facility] Comment on above: Performed By: #### H DOMENICA MONCADA CHM7 ####[facility] (DEFAULT)[address] [place] [address] Creatinine [Mass/Vol] 1.25 mg/dL Normal 0.70-1.30 [facility] Comment on above: Performed By: #### H DOMENICA MONCADA CHM7 ####[facility] (DEFAULT)[address] [place] [address], [place] [address] GFR/1.73 sq M.predicted among non-blacks MDRD (S/P/Bld) [Vol rate/Area] 69 mL/min/{1.73_m2} Normal >=60 [facility] Comment on above: Result Comment: Repo rted eGFR is based on the CKD-EPI 2020 equation using creatinine, age, and sex. Performed By: #### H DOMENICA MONCADA CHM7 ####[facility] (DEFAULT)[address] [place] [address] Glucose [Mass/Vol] 105 mg/dL High 70-99 [facility] Comment on above: Performed By: #### H DOMENICA MONCADA CHM7 ####[facility] (DEFAULT)[address] [facility] [place] [address] Osmolality [Osmolality] 287 mosm/kg Normal 278-305 [facility] Comment on above: Performed By: #### H DOMENICA MONCADA CHM7 ####[facility] (DEFAULT)[address] [place] [address] Potassium [Moles/Vol] 4.3 mmol/L Normal 3.5-5.0 [facility] Comment on above: Performed By: #### H DOMENICA MONCADA CHM7 ####[facility] (DEFAULT)[address] [facility] [place] [address] Sodium [Moles/Vol] 136 mmol/L Normal 135-145 [facility] Comment on above: Performed By: #### H FP, MGO, CHM7 ####[facility] (DEFAULT)[address] [place] [address] Urea nitrogen [Mass/Vol] 16 mg/dL Normal 7-25 [facility] Comment on above: Performed By: #### H FP, MGO, CHM7 ####[facility] (DEFAULT)[address] [facility] [place] [address] Urea nitrogen/Creatinine [Mass ratio] 13 mg/mg Normal [facility] Comment on above: Performed By: #### H FP, MGO, CHM7 ####[facility] (DEFAULT)[address] [place] [address] CMV PCR,FLUIDS,URINE,EYE ETC on 09-02-2023 CMV by PCR Result Negative Normal Negative [facility] Comment on above: Result Comment: ---- ADDITIONAL INFORMATION This test was developed and its performance characteristicsdetermined by [facility] in a manner consistent with CLIArequirements. This test has not been cleared or approved bythe U.S. Food and Drug Administration.Test Performed by:[address] [address]Dll Director: Rosendo Bose M.D. Ph.D.; CLIA# [id number] Performed By: #### Y CMV ####[facility] (DEFAULT)[address] [facility] [place] [address] CMV BY PCR SOURCE BAL RML Normal [facility] Comment on above: Performed By: #### Y CMV ####[facility] (DEFAULT)[address] [place] [address] CMV by PCR Result Negative Normal Negative [facility] Comment on above: Result Comment: ---- ADDITIONAL INFORMATION This test was developed and its performance characteristicsdetermined by [facility] in a manner consistent with CLIArequirements. This test has not been cleared or approved bythe U.S. Food and Drug Administration.Test Performed by:[address] [address]Fno Director: Rosendo Bose M.D. Ph.D.; CLIA# [id number] Performed By: #### Y CMV ####[facility] (DEFAULT)[address] [place] [address] CMV BY PCR SOURCE BAL LLL Normal [facility] Comment on above: Performed By: #### Y CMV ####[facility] (DEFAULT)[address] [place] [address] CYTOLOGY, NON-GYNon 09-02-20 23 CYTOLOGIC DIAGNOSIS Normal [facility] Comment on above: Result Comment: A. B RONCHOALVEOLAR LAVAGE, LEFT LOWER LOBE (CYTOLOGY):FINAL DIAGNOSIS:No Malignant Cells Are IdentifiedHypocellular Specimen Performed By: #### N ONGNNONFNA ####[facility] (DEFAULT)[address] [place] [address] Case Report Normal [facility] Comment on above: Result Comment: [facility] Cytology Report Case: [id number] Provider: Crow Diaz MD Collected: 09/02/2023 08:38 AMOrdering Location: R10W Received: 09/02/2023 10:44 AMPathologist: KENTON Caglepecimen: BRONCHOALVEOLAR LAVAGE, LLL BAL Performed By: #### N ONGNNONFNA ####[facility] (DEFAULT)[address] [place] [address] Clinical History Renal transplant. Normal [facility] Comment on above: Performed By: #### N LITZY ####[facility] (DEFAULT)[address] [place] [address] Gross Description Normal [facility] Comment on above: Result Comment: LLL BAL1 ml hazy colorless fld unfixed1 TP slide Pap stainFor Immediate Release to Patient's MyChart? Yes Performed By: #### N LITZY ####[facility] (DEFAULT)[address] [place] [address] FUNGUS CULTUREon 09-02-2023 Bacteria identified Cx Nom (Unsp spec) Normal [facility] Comment on above: Order Comment: Ident ification was performed on the MALDI-TOF mass spectrometer Zimbrayper. This test was developed by [facility]. It has not been cleared or approved by the FDA. The laboratory is regulated under CLIA as qualified to perform high-complexity testing. This test is used for clinical purposes. It should not be regarded as investigational or for research. Result Comment: Grow [id number] Histoplasma capsulatum Performed By: #### F UN ####[facility] (DEFAULT)[address] [place] [address] Bacteria identified Cx Nom (Unsp spec) NO GROWTH DAY 28 OF 28 Normal [facility] Comment on above: Order Comment: BAL f ungal culture Performed By: #### F UN ####[facility] (DEFAULT)[address] [place] [address] HEPATIC FUNCTION PANELon Albumin [Mass/Vol] 3.2 g/dL [...] [facility] Albumin [Mass/Vol] 3.2 g/dL Low 3.5-5.0 [facility] Comment on above: Performed By: #### H DOMENICA MONCADA CHM7 ####[facility] (DEFAULT)[address] [place] [address] ALP [Catalytic activity/Vol] 107 U/L Normal 32-126 [facility] Comment on above: Performed By: #### DOMENICA MCKINNON CHMJessica ####[facility] (DEFAULT)[address] [facility] [place] [address] ALT [Catalytic activity/Vol] 20 U/L Normal 10-52 [facility] Comment on above: Performed By: #### DOMENICA MCKINNON CHM7 ####[facility] (DEFAULT)[address] [place] [address] AST [Catalytic activity/Vol] 31 U/L Normal 10-39 [facility] Comment on above: Performed By: #### Lydia MONCADA MGRogelio CHM7 ####[facility] (DEFAULT)[address] [place] [address] Bilirubin [Mass/Vol] 1.0 mg/dL Normal <1.5 [facility] Comment on above: Performed By: #### Lydia MONCADA MGO CHM7 ####[facility] (DEFAULT)[address] [place] [address] Bilirubin.indirect [Mass/Vol] 0.3 mg/dL High <0.3 [facility] Comment on above: Performed By: #### H ANTWAN MGO, CHM7 ####[facility] (DEFAULT)[address] [place] [address] Protein [Mass/Vol] 6.6 g/dL Normal 6.4-8.3 [facility] Comment on above: Performed By: #### H FP MGO, CHM7 ####[facility] (DEFAULT)[address] [place] [address] HISTOPLASMA ANTIGEN, FLUIDon 09-02-2023 FH SOURCE BAL RML Normal [facility] Comment on above: Performed By: #### Y FHST ####[facility] (DEFAULT)[address] [facility] [place] [address] Histo FLD interpretation Negative Normal [facility] Comment on above: Result Comment: ---- ADDITIONAL INFORMATION Reference interval: None DetectedReportable Range: Positive Results reported in ng/mL from0.20 ng/mL to 20.00 ng/mLPositive Results above 20.00 ng/mL are reported as 'Abovethe Limit of Quantification'Cross-reactions occur with Blastomyces spp., Coccidioidesspp., and Paracoccidioides brasiliensis.This test was developed and its performance characteristicsdetermined by [facility]. It has not beencleared or approved by the FDA; however, FDA clearance orapproval is not currently required for clinical use. Theresults are not intended to be used as the sole means forclinical diagnosis or patient management decisions.Test Performed by:[facility] [place] [address] Performed By: #### Y FHST ####[facility] (DEFAULT)[address] [facility] [place] [address] Histoplasma Antigen, FLUID Not detected Normal [facility] Comment on above: Performed By: #### Y FHST ####[facility] (DEFAULT)[address] [place] [address] HISTOPLASMA ANTIGEN,URINEon 09-02-2023 H. capsulatum Ag (U) [Mass/Vol] Not detected ng/mL [facility] H. capsulatum Ag IA Ql (U) Not detected Not Detected [facility] HISTOPLASMA CAPSULATUM/BLAST OMYCES SPECIES,PCR FLUIDon 09-02-2023 HISTO/BLASTO RESULT Negative Normal Not Applicable [facility] Comment on above: Result Comment: A Ne gative result from BAL fluid does not rule out thepresence of Histoplasma capsulatum because the sensitivity from this source is suboptimal. ADDITIONAL INFORMATION This test was developed and its performance characteristicsdetermined by [facility] in a manner consistent with CLIArequirements. This test has not been cleared or approved bythe U.S. Food and Drug Administration.Test Performed by:[address] Director: Rosendo Bose M.D. Ph.D.; CLIA# [id number] Performed By: #### Y HBRP ####[facility] (DEFAULT)[address] [place] [address] Source BAL RML Normal [facility] Comment on above: Performed By: #### Y HBRP ####[facility] (DEFAULT)[address] [address] HIV 1 AND 2 ANTIBODIES/P24 A NTIGENOrdered By: Wilma Luque on 09-02-2023 HIV 1+2 Ab+HIV1 p24 Ag IA Ql Non-Reactive Non Reactive [facility] Interpretation and review of laboratory results Normal [facility] HIV 1 AND 2 ANTIBODIES/P24 A NTIGENon 09-02-2023 HIV-1/HIV-2 Ab With p24 Antigen Non-Reactive Normal Non Reactive [facility] Comment on above: Performed By: #### L RUYZEJ21 ####[facility] (DEFAULT)[address] [place] [address] LEGIONELLA CULTUREon 023 Bacteria identified Cx Nom (Unsp spec) NO GROWTH DAY 7 OF 7 Normal [facility] Comment on above: Performed By: #### L EGN ####[facility] (DEFAULT)[address] [place] [address] Bacteria identified Cx Nom (Unsp spec) NO GROWTH DAY 7 OF 7 Normal [facility] Comment on above: Order Comment: BAL l egionella culture Performed By: #### L EGN ####[facility] (DEFAULT)[address] [place] [address] LEGIONELLA PCRon 09-02-2023 Legionella species, Culture BAL RML Normal [facility] Comment on above: Performed By: #### Y LEGRP ####[facility] (DEFAULT)[address] [place] [address] Legionella, pcr result Negative Normal Not Applicable [facility] Comment on above: Result Comment: ---- ADDITIONAL INFORMATION This test was developed and its performance characteristicsdetermined by [facility] in a manner consistent with CLIArequirements. This test has not been cleared or approved bythe U.S. Food and Drug Administration.Test Performed by:[address] [address]Rdg Director: Rosendo Bose M.D. Ph.D.; CLIA# [id number] Performed By: #### Y LEGRP ####[facility] (DEFAULT)[address] [place] [address] LOWER RESPIRATORY CULTURE, B ACTERIALon 09-02-2023 Bacteria identified Cx Nom (Unsp spec) NO GROWTH DAY 2 OF 2 Normal [facility] Comment on above: Performed By: #### R ES ####[facility] (DEFAULT)[address] [place] [address] Microscopic observation Gram stain Nom (Unsp spec) Normal [facility] Comment on above: Result Comment: Cyto centrifuge preparationNeutrophils, RareRed Blood Cells PresentNo organisms seen Performed By: #### R ES ####[facility] (DEFAULT)[address] [place] [address] Bacteria identified Cx Nom (Unsp spec) NO GROWTH DAY 2 OF 2 Normal [facility] Comment on above: Order Comment: BAL b acterial respiratory culture Performed By: #### R ES ####[facility] (DEFAULT)[address] [place] [address] Microscopic observation Gram stain Nom (Unsp spec) Normal [facility] Comment on above: Order Comment: BAL b acterial respiratory culture Result Comment: Cyto centrifuge preparationNeutrophils, ModerateRed Blood Cells PresentNo organisms seen Performed By: #### R ES ####[facility] (DEFAULT)[address] [place] [address] MAGNESIUMon 09-02-2023 Interpretation and review of laboratory results Normal [facility] Magnesium [Mass/Vol] 1.7 mg/dL 1.6 - 2 .6 mg/dL [facility] Magnesium [Mass/Vol] 1.7 mg/dL Normal 1.6-2.6 [facility] Comment on above: Performed By: #### H FP, MGO, CHM7 ####[facility] (DEFAULT)[address] [place] [address] No Panel Informationon 09-02 Interpretation and review of laboratory results Abnormal [facility] PNEUMOCYSTIS JIROVECI,PCRon 09-02-2023 PN Report Status DNR Normal [facility] Comment on above: Performed By: #### Y PNRP ####[facility] (DEFAULT)[address] [place] [address] PN Specimen Source BAL RML Normal [facility] Comment on above: Performed By: #### Y PNRP ####[facility] (DEFAULT)[address] [facility] [place] [address] Pneum jiroveci comment DNR Normal [facility] Comment on above: Performed By: #### Y PNRP ####[facility] (DEFAULT)[address] [facility] [place] [address] Pneumocystis jiroveci,PCR result Negative Normal Not Applicable [facility] Comment on above: Result Comment: ---- ADDITIONAL INFORMATION This test was developed and its performance characteristicsdetermined by [facility] in a manner consistent with CLIArequirements. This test has not been cleared or approved bythe U.S. Food and Drug Administration.Test Performed by:[address] Director: Rosendo Bose M.D. Ph.D.; CLIA# [id number] Performed By: #### Y PNRP ####[facility] (DEFAULT)[address] [place] [address] PN Report Status DNR Normal [facility] Comment on above: Performed By: #### Y PNRP ####[facility] (DEFAULT)[address] [place] [address] PN Specimen Source BAL LLL Normal [facility] Comment on above: Performed By: #### Y PNRP ####[facility] (DEFAULT)[address] [facility] [place] [address] Pneum jiroveci comment DNR Normal [facility] Comment on above: Performed By: #### Y PNRP ####[facility] (DEFAULT)[address] [place] [address] Pneumocystis jiroveci,PCR result Negative Normal Not Applicable [facility] Comment on above: Result Comment: ---- ADDITIONAL INFORMATION This test was developed and its performance characteristicsdetermined by [facility] in a manner consistent with CLIArequirements. This test has not been cleared or approved bythe U.S. Food and Drug Administration.Test Performed by:[address] [address]Kwq Director: Rosendo Bose M.D. Ph.D.; CLIA# [id number] Performed By: #### Y PNRP ####[facility] (DEFAULT)[address] [place] [address] TACROLIMUS LEVEL, TROUGH (WI E DRUG LEVEL)on 09-02-2023 Interpretation and review of laboratory results Normal [facility] Tacrolimus (Bld) [Mass/Vol] 4.2 ng/mL [facility] Tacrolimus, Trough 4.2 ng/mL Normal [facility] Susana ow Transplant: 4.0-12.0, Therapeutic: 5.0-15.0 [facility] Comment on above: Order Comment: Pleas e draw at specified interval PRIOR to dose. Do not hold dose to wait for level. Specimens batched twice per day, (M-F) and once per day weekendsMethod performed is a chemiluminescent microparticle immunoasssay on the [employer] i2000.The range is based on experience at [facility] and users should be aware that target concentrations vary widely depending on concomitant therapy, time post-transplant, and desired degree of immunosuppression. Performed By: #### T ACRO ####[facility] (DEFAULT)[address] [place] [address] CBC,PLATELETSon 09-01-2023 Erythrocyte distribution width (RBC) [Ratio] [...] [facility] RBC (Bld) [#/Vol] 4.60 10*6/uL [facility] WBC (Bld) [#/Vol] 4.41 10*3/uL 3.73 - 10. 10 K/uL [facility] Hematocrit (Bld) [Volume fraction] 38.9 % Low 39.6-48.8 [facility] Comment on above: Performed By: #### H [facility] ####[facility] (DEFAULT)[address] [place] [address] Hemoglobin (Bld) [Mass/Vol] 12.7 g/dL Low 13.4-16.8 [facility] Comment on above: Performed By: #### H [facility] ####[facility] (DEFAULT)[address] [place] [address] MCV (RBC) [Entitic vol] 84.6 fL Normal 79.0-94.5 [facility] Comment on above: Performed By: #### H [facility] ####[facility] (DEFAULT)[address] [place] [address] Mean Cell Hgb 27.6 pg Normal 26.1-33.3 [facility] Comment on above: Performed By: #### H [facility] ####[facility] (DEFAULT)[address] [facility] [place] [address] Mean Cell Hgb Conc 32.6 g/dL Normal 31.9-36.5 [facility] Comment on above: Performed By: #### H EMOGC ####[facility] (DEFAULT)[address] [facility] [place] [address] Platelet mean volume (Bld) [Entitic vol] 9.4 fL Normal 8.7-12.3 [facility] Comment on above: Performed By: #### H EMOGC ####[facility] (DEFAULT)[address] [place] [address] Platelets (Bld) [#/Vol] 209 10*3/uL Normal 146-337 [facility] Comment on above: Performed By: #### H EMOGC ####[facility] (DEFAULT)[address] [place] [address] RBC (Bld) [#/Vol] 4.60 10*6/uL Normal 4.38-5.83 [facility] Comment on above: Performed By: #### H EMOGC ####[facility] (DEFAULT)[address] [facility] [address] RBC Distribution 13.4 % Normal 10.9-14.3 [facility] Comment on above: Performed By: #### H EMOGC ####[facility] (DEFAULT)[address] [place] [address] WBC (Bld) [#/Vol] 4.41 10*3/uL Normal 3.73-10.10 [facility] Comment on above: Performed By: #### H EMOGC ####[facility] (DEFAULT)[address] [place] [address] CHEM 7 (LYTES,BUN,CREA,GLUC) on 09-01-2023 Anion gap [Moles/Vol] 14 mmol/L 7 - 17 mmol/L [facility] Chloride [Moles/Vol] 103 mmol/L 98 - 10 8 mmol/L [facility] CO2 [Moles/Vol] 21 mmol/L 21 - 31 mmol/L [facility] Creatinine [Mass/Vol] 1.16 mg/dL 0.70 - 1.30 mg/dL [facility] eGFR, CKD-EPI, Male 77 - PINF [facility] Glucose [Mass/Vol] 117 mg/dL High [...] [Moles/Vol] 14 mmol/L Normal 7-17 [facility] Comment on above: Performed By: #### H DOMENICA MONCADA CHM7 ####[facility] (DEFAULT)[address] [place] [address] Chloride [Moles/Vol] 103 mmol/L Normal 98-108 [facility] Comment on above: Performed By: #### DOMENICA MCKINNON CHM7 ####[facility] (DEFAULT)[address] [facility] [place] [address] CO2 [Moles/Vol] 21 mmol/L Normal 21-31 [facility] Comment on above: Performed By: #### DOMENICA MCKINNON CHM7 ####[facility] (DEFAULT)[address] [place] [address] Creatinine [Mass/Vol] 1.16 mg/dL Normal 0.70-1.30 [facility] Comment on above: Performed By: #### DOMENICA MCKINNON CHM7 ####[facility] (DEFAULT)[address] [facility] [place] [address] GFR/1.73 sq M.predicted among non-blacks MDRD (S/P/Bld) [Vol rate/Area] 76 mL/min/{1.73_m2} Normal >=60 [facility] Comment on above: Result Comment: Repo rted eGFR is based on the CKD-EPI 2020 equation using creatinine, age, and sex. Performed By: #### H ANTWAN MGO CHM7 ####[facility] (DEFAULT)[address] [facility] [place] [address] Glucose [Mass/Vol] 117 mg/dL High 70-99 [facility] Comment on above: Performed By: #### H ANTWAN MGO CHM7 ####[facility] (DEFAULT)[address] [facility] [place] [address] Osmolality [Osmolality] 285 mosm/kg Normal 278-305 [facility] Comment on above: Performed By: #### H ANTWAN MGO CHM7 ####[facility] (DEFAULT)[address] [facility] [place] [address] Potassium [Moles/Vol] 4.2 mmol/L Normal 3.5-5.0 [facility] Comment on above: Performed By: #### H FP MGO, CHM7 ####[facility] (DEFAULT)[address] [place] [address] Sodium [Moles/Vol] 134 mmol/L Low 135-145 [facility] Comment on above: Performed By: #### H FP MGO, CHM7 ####[facility] (DEFAULT)[address] [facility] [place] [address] Urea nitrogen [Mass/Vol] 18 mg/dL Normal 7-25 [facility] Comment on above: Performed By: #### H FP, MGO, CHM7 ####[facility] (DEFAULT)[address] [facility] [address] Urea nitrogen/Creatinine [Mass ratio] 16 mg/mg Normal [facility] Comment on above: Performed By: #### H DOMENICA MONCADA CHM7 ####[facility] (DEFAULT)[address] [place] [address] CRYPTOCOCCAL ANTIGENon 09-01 Cryptococcus sp Ag Ql (S) Negative Negative [facility] Interpretation and review of laboratory results Normal [facility] Cryptococcus Antigen,Serum Negative Normal Negative [facility] Comment on above: Performed By: #### C RAG ####[facility] (DEFAULT)[address] [place] [address] HEPATIC FUNCTION PANELon Albumin [Mass/Vol] 3.3 g/dL [facility] Bilirubin [Mass/Vol] 1.0 mg/dL [facility] mg/dL [facility] Bilirubin.direct [Mass/Vol] 0.2 mg/dL [facility] - 0.[facility] mg/dL [facility] Protein [Mass/Vol] 6.8 g/dL 6.4 - 8.3 g/dL [facility] Albumin [Mass/Vol] 3.3 g/dL Low 3.5-5.0 [facility] Comment on above: Performed By: #### H DOMENICA MONCADA CHM7 ####[facility] (DEFAULT)[address] [place] [address] ALP [Catalytic activity/Vol] 112 U/L Normal 32-126 [facility] Comment on above: Performed By: #### H DOMENICA MONCADA CHM7 ####[facility] (DEFAULT)[address] [place] [address] ALT [Catalytic activity/Vol] 21 U/L Normal 10-52 [facility] Comment on above: Performed By: #### H DOMENICA MONCADA CHM7 ####[facility] (DEFAULT)[address] [place] [address] AST [Catalytic activity/Vol] 29 U/L Normal 10-39 [facility] Comment on above: Performed By: #### H ANTWAN MGRogelio CHM7 ####[facility] (DEFAULT)[address] [place] [address] Bilirubin [Mass/Vol] 1.0 mg/dL Normal <1.5 [facility] Comment on above: Performed By: #### H ANTWAN MGO, CHM7 ####[facility] (DEFAULT)[address] [facility] [place] [address] Bilirubin.indirect [Mass/Vol] 0.2 mg/dL Normal <0.3 [facility] Comment on above: Performed By: #### H ANTWAN MGO, CHM7 ####[facility] (DEFAULT)[address] [facility] [place] [address] Protein [Mass/Vol] 6.8 g/dL Normal 6.4-8.3 [facility] Comment on above: Performed By: #### H ANTWAN MGO, CHM7 ####[facility] (DEFAULT)[address] [facility] [place] [address] L. pneumophila 1 Ag IA Ql (U )Ordered By: Carolin Miles on 09-01-2023 Interpretation and review of laboratory results Normal [facility] LEGIONELLA URINARY AGOrdered By: Carolin Miles on 09-01-2023 L. pneumophila 1 Ag IA Ql (U) Negative Negative [facility] MAGNESIUMon 09-01-2023 Interpretation and review of laboratory results Normal [facility] Magnesium [Mass/Vol] 1.6 mg/dL 1.6 - 2 .6 mg/dL [facility] Magnesium [Mass/Vol] 1.6 mg/dL Normal 1.6-2.6 [facility] Comment on above: Performed By: #### H ANTWAN, DOMENICA, CHM7 ####[facility] (DEFAULT)[address] [place] [address] No Panel Informationon 09-01 Interpretation and review of laboratory results Abnormal [facility] PARVOVIRUS (B19) DNA, PCR, B LOODon 09-01-2023 PARVOVIRUS B19 BY RAPID PCR Not detected Normal Not Detected [facility] Comment on above: Result Comment: The primers/probe used in this assay will detectparvovirus B19 and V9 (genotypes 1 # 3) but maynot detect parvovirus genotype 2. The majority ofcirculating Parvovirus B19 strains in the [facility] are genotype 1. Genotype 2 is not believed tocirculate widely in the [facility], but has beenassociated with similar clinical features as genotype1. Genotype 3 is most prevalent in some [facility].This test was developed and its analyticalperformance characteristics have been determinedby [place].It has not been cleared or approved by the FDA. Thisassay has been validated pursuant to the CLIAregulations and is used for clinical purposes.Test Performed at:[employer] [address] [id number] Benavides M.D., Ph.D.,Director of Laboratories Performed By: #### Y PRVP ####[facility] (DEFAULT)[address] [place] [address] [place] SPEC SOURCE Whole Blood Normal [facility] Comment on above: Performed By: #### Y PRVP ####[facility] (DEFAULT)[address] [address] ASPERGILLUS (GALACTOMANNAN), ANTIGENon 08-31-2023 Aspergillus Antigen <0.500 Normal <0.5 [facility] Comment on above: Result Comment: ---- ADDITIONAL INFORMATION This is a qualitative test and the resulted index value isnot indicative of disease severity. Serial testing isrecommended for patients at high risk for invasiveaspergillosis.This assay was performed using the FDA-cleared AD[employer]X-Neituilia Aspergillus Galactomannan EIA.Test Performed by:[facility] [place] [id number] Director: Rosendo Bose M.D. Ph.D.; CLIA# [id number] Performed By: #### Y ASPR ####[facility] (DEFAULT)[address] [place] [address] CBC,PLATELETSon 08-31-2023 Erythrocyte distribution width (RBC) [Ratio] [...] [facility] Center RBC (Bld) [#/Vol] 4.63 10*6/uL [facility] WBC (Bld) [#/Vol] 4.77 10*3/uL 3.73 - 10. 10 K/uL [facility] Hematocrit (Bld) [Volume fraction] 39.4 % Low 39.6-48.8 [facility] Comment on above: Performed By: #### H EMOGC ####[facility] (DEFAULT)[address] [place] [address] Hemoglobin (Bld) [Mass/Vol] 12.8 g/dL Low 13.4-16.8 [facility] Comment on above: Performed By: #### H EMOGC ####[facility] (DEFAULT)[address] [facility] [place] [address] MCV (RBC) [Entitic vol] 85.1 fL Normal 79.0-94.5 [facility] Comment on above: Performed By: #### H EMOGC ####[facility] (DEFAULT)[address] [place] [address] Mean Cell Hgb 27.6 pg Normal 26.1-33.3 [facility] Comment on above: Performed By: #### H EMOGC ####[facility] (DEFAULT)[address] [facility] [place] [address] Mean Cell Hgb Conc 32.5 g/dL Normal 31.9-36.5 [facility] Comment on above: Performed By: #### H EMOGC ####[facility] (DEFAULT)[address] [place] [address] Platelet mean volume (Bld) [Entitic vol] 9.6 fL Normal 8.7-12.3 [facility] Comment on above: Performed By: #### H EMOGC ####[facility] (DEFAULT)[address] [place] [address] Platelets (Bld) [#/Vol] 228 10*3/uL Normal 146-337 [facility] Comment on above: Performed By: #### H EMOGC ####[facility] (DEFAULT)[address] [place] [address] RBC (Bld) [#/Vol] 4.63 10*6/uL Normal 4.38-5.83 [facility] Comment on above: Performed By: #### H [facility] ####[facility] (DEFAULT)[address] [place] [address] RBC Distribution 13.3 % Normal 10.9-14.3 [facility] Comment on above: Performed By: #### H [facility] ####[facility] (DEFAULT)[address] [place] [address] WBC (Bld) [#/Vol] 4.77 10*3/uL Normal 3.73-10.10 [facility] Comment on above: Performed By: #### H [facility] ####[facility] (DEFAULT)[address] [place] [address] CHEM 7 (LYTES,BUN,CREA,GLUC) on 08-31-2023 Anion gap [...] Center eGFR, CKD-EPI, Male 62 - PINF [facility] Glucose [Mass/Vol] 112 mg/dL High 70 - 99 mg/dL [facility] Osmolality Calc [Osmolality] 284 [facility] Potassium [...] [facility] Anion gap [Moles/Vol] 13 mmol/L Normal 7-17 [facility] Comment on above: Performed By: #### M GO, HFP, CHM7, FERIB, PROCAL ####[facility] (DEFAULT)[address] [place] [address] Chloride [Moles/Vol] 102 mmol/L Normal 98-108 [facility] Comment on above: Performed By: #### M GO, HFP, CHM7, FERIB, PROCAL ####[facility] (DEFAULT)[address] [facility] [place] [address] CO2 [Moles/Vol] 23 mmol/L Normal 21-31 [facility] Comment on above: Performed By: #### M GO, HFP, CHM7, FERIB, PROCAL ####[facility] (DEFAULT)[address] [facility] [place] [address] Creatinine [Mass/Vol] 1.37 mg/dL High 0.70-1.30 [facility] Comment on above: Performed By: #### M GO, HFP, CHM7, FERIB, PROCAL ####[facility] (DEFAULT)[address] [facility] [address] GFR/1.73 sq M.predicted among non-blacks MDRD (S/P/Bld) [Vol rate/Area] 62 mL/min/{1.73_m2} Normal >=60 [facility] Comment on above: Result Comment: Repo rted eGFR is based on the CKD-EPI 2020 equation using creatinine, age, and sex. Performed By: #### M GO, HFP, CHM7, FERIB, PROCAL ####[facility] (DEFAULT)[address] [facility] [place] [address] Glucose [Mass/Vol] 112 mg/dL High 70-99 [facility] Comment on above: Performed By: #### M GO, HFP, CHM7, FERIB, PROCAL ####[facility] (DEFAULT)[address] [facility] [place] [address] Osmolality [Osmolality] 284 mosm/kg Normal 278-305 [facility] Comment on above: Performed By: #### M GO, HFP, CHM7, FERIB, PROCAL ####[facility] (DEFAULT)[address] [facility] [place] [address] Potassium [Moles/Vol] 4.4 mmol/L Normal 3.5-5.0 [facility] Comment on above: Performed By: #### M GO, HFP, CHM7, FERIB, PROCAL ####[facility] (DEFAULT)[address] [facility] [place] [address] Sodium [Moles/Vol] 134 mmol/L Low 135-145 [facility] Comment on above: Performed By: #### M GO, HFP, CHM7, FERIB, PROCAL ####[facility] (DEFAULT)[address] [place] [address] Urea nitrogen [Mass/Vol] 16 mg/dL Normal 7-25 [facility] Comment on above: Performed By: #### M GO, HFP, CHM7, FERIB, PROCAL ####[facility] (DEFAULT)[address] [facility] [place] [address] Urea nitrogen/Creatinine [Mass ratio] 12 mg/mg Normal [facility] Comment on above: Performed By: #### M GO, HFP, CHM7, FERIB, PROCAL ####[facility] (DEFAULT)[address] [facility] [place] [address] CT ABDOMEN/PELVIS WITHOUT CO NTRASTon 08-31-2023 CT ABDOMEN/PELVIS WITHOUT CONTRAST Normal [facility] CT Abdomen and Pelvis WO con traston 08-31-2023 RADIOLOGY RADIOLOGY [facility] Radiology Study observation (narrative) [facility] CT Abdomen and Pelvis WO con trastOrdered By: Chavez Larkin on 08-31-2023 [facility] Work Phone: CT CHEST WITHOUT CONTRASTon 08-31-2023 CT CHEST WITHOUT CONTRAST Normal [facility] CT Chest WO contraston 08-31 RADIOLOGY [...] Interpretation and review of laboratory results Abnormal [facility] Ferritin [Mass/Vol] 409.0 ng/mL High 10.5-307.3 [facility] Comment on above: Performed By: #### M MERLE, HFP, CHM7, FERIB, PROCAL ####[facility] (DEFAULT)[address] [place] [address] HEPATIC FUNCTION PANELon Albumin [Mass/Vol] 3.3 g/dL [...] [facility] Albumin [Mass/Vol] 3.3 g/dL Low 3.5-5.0 [facility] Comment on above: Performed By: #### M MERLE, HFP, CHM7, FERIB, PROCAL ####[facility] (DEFAULT)[address] [place] [address] ALP [Catalytic activity/Vol] 113 U/L Normal 32-126 [facility] Comment on above: Performed By: #### M GO, HFP, CHM7, FERIB, PROCAL ####[facility] (DEFAULT)[address] [place] [address] ALT [Catalytic activity/Vol] 25 U/L Normal 10-52 [facility] Comment on above: Performed By: #### M GO, HFP, CHM7, FERIB, PROCAL ####[facility] (DEFAULT)[address] [place] [address] AST [Catalytic activity/Vol] 31 U/L Normal 10-39 [facility] Comment on above: Performed By: #### M GO, HFP, CHM7, FERIB, PROCAL ####[facility] (DEFAULT)[address] [place] [address] Bilirubin [Mass/Vol] 1.1 mg/dL Normal <1.5 [facility] Comment on above: Performed By: #### M GO, HFP, CHM7, FERIB, PROCAL ####[facility] (DEFAULT)[address] [place] [address] Bilirubin.indirect [Mass/Vol] 0.3 mg/dL High <0.3 [facility] Comment on above: Performed By: #### M GO, HFP, CHM7, FERIB, PROCAL ####[facility] (DEFAULT)[address] [place] [address] Protein [Mass/Vol] 7.0 g/dL Normal 6.4-8.3 [facility] Comment on above: Performed By: #### M GO, HFP, CHM7, FERIB, PROCAL ####[facility] (DEFAULT)[address] [place] [address] LEGIONELLA URINARY AGon 10-0 [facility] Urinary Antigen Negative Normal Negative [facility] Comment on above: Performed By: #### L EGION ####[facility] (DEFAULT)[address] [place] [address] MAGNESIUMon 08-31-2023 Interpretation and review of laboratory results Normal [facility] Magnesium [Mass/Vol] 1.7 mg/dL 1.6 - 2 .6 mg/dL [facility] Magnesium [Mass/Vol] 1.7 mg/dL Normal 1.6-2.6 [facility] Comment on above: Performed By: #### M GO, HFP, CHM7, FERIB, PROCAL ####[facility] (DEFAULT)[address] [place] [address] No Panel Informationon 08-31 Interpretation and review of laboratory results Abnormal [facility] PROCALCITONINon 08-31-2023 Interpretation and review of laboratory results Normal [facility] Procalcitonin [Mass/Vol] 0.23 ng/mL NINF - 0.50 ng/mL [facility] Procalcitonin 0.23 ng/mL Normal <0.50 [facility] Comment on above: Result Comment: Proc [...] and trend procalcitonin in various clinical settings. [email or web address]/[email or web address]?[email or web address]=/departments/[email or web address]/[email or web address] [email or web address]&action=default&[email or web address] common cutoffs associated with bacterial infections are as follows.Respiratory tract infections: >0.25 ng/mLSepsis/septic shock: >0.5 ng/mLProcalcitonin should not be used alone as a diagnostic tool, however. All procalcitonin results should be interpreted in association with the patients clinical condition and all laboratory findings. Performed By: #### M MERLE, TAVO, CHM7, ANG DOMINIQUE ####[facility] (DEFAULT)[address] [place] [address] TACROLIMUS LEVEL, TROUGH (WI E DRUG LEVEL)Ordered By: Yanira Marcum on 08-31-2023 Interpretation and review of laboratory results Normal [facility] Tacrolimus (Bld) [Mass/Vol] 5.9 ng/mL [facility] TACROLIMUS LEVEL, TROUGH (WI E DRUG LEVEL)on 08-31-2023 Tacrolimus, Trough 5.9 ng/mL Normal Bone Susana ow Transplant: 4.0-12.0, Therapeutic: 5.0-15.0 [facility] Comment on above: Order Comment: Pleas e draw at specified interval PRIOR to dose. Do not hold dose to wait for level. Specimens batched twice per day, (M-F) and once per day weekendsMethod performed is a chemiluminescent microparticle immunoasssay on the [employer] i2000.The range is based on experience at [facility] and users should be aware that target concentrations vary widely depending on concomitant therapy, time post-transplant, and desired degree of immunosuppression. Performed By: #### T ACRO ####[facility] (DEFAULT)[address] [place] [address] URINE CULTUREOrdered By: Jorge Lozano on 08-31-2023 Bacteria identified Cx Nom (Unsp spec) No Growth [facility] DARYL AURIS SCREEN BY PCRO rdered By: Mynor Alejandro on 08-30-2023 Daryl auris Screen by PCR Not detected Not Detected [facility] Interpretation and review of laboratory results Normal [facility] CBC,PLATELETSon 08-30-2023 Erythrocyte distribution width (RBC) [Ratio] [...] [facility] Center RBC (Bld) [#/Vol] 4.83 10*6/uL [facility] WBC (Bld) [#/Vol] 4.96 10*3/uL 3.73 - 10. 10 K/uL [facility] Hematocrit (Bld) [Volume fraction] 41.3 % Normal 39.6-48.8 [facility] Comment on above: Performed By: #### H [facility] ####[facility] (DEFAULT)[address] [place] [address] Hemoglobin (Bld) [Mass/Vol] 13.2 g/dL Low 13.4-16.8 [facility] Comment on above: Performed By: #### H [facility] ####[facility] (DEFAULT)[address] [place] [address] MCV (RBC) [Entitic vol] 85.5 fL Normal 79.0-94.5 [facility] Comment on above: Performed By: #### H [facility] ####[facility] (DEFAULT)[address] [place] [address] Mean Cell Hgb 27.3 pg Normal 26.1-33.3 [facility] Comment on above: Performed By: #### H EMOGC ####[facility] (DEFAULT)[address] [facility] [place] [address] Mean Cell Hgb Conc 32.0 g/dL Normal 31.9-36.5 [facility] Comment on above: Performed By: #### H EMOGC ####[facility] (DEFAULT)[address] [facility] [address] Platelet mean volume (Bld) [Entitic vol] 9.2 fL Normal 8.7-12.3 [facility] Comment on above: Performed By: #### H EMOGC ####[facility] (DEFAULT)[address] [facility] [place] [address] Platelets (Bld) [#/Vol] 235 10*3/uL Normal 146-337 [facility] Comment on above: Performed By: #### H EMOGC ####[facility] (DEFAULT)[address] [place] [address] RBC (Bld) [#/Vol] 4.83 10*6/uL Normal 4.38-5.83 [facility] Comment on above: Performed By: #### H EMOGC ####[facility] (DEFAULT)[address] [place] [address] RBC Distribution 13.3 % Normal 10.9-14.3 [facility] Comment on above: Performed By: #### H EMOGC ####[facility] (DEFAULT)[address] [facility] [address] WBC (Bld) [#/Vol] 4.96 10*3/uL Normal 3.73-10.10 [facility] Comment on above: Performed By: #### H EMOGC ####[facility] (DEFAULT)[address] [place] [address] CHEM 7 (LYTES,BUN,CREA,GLUC) on 08-30-2023 Anion gap [...] eGFR, CKD-EPI, Male 54 Low - PINF [facility] Glucose [Mass/Vol] 123 mg/dL High [...] [Moles/Vol] 14 mmol/L Normal 7-17 [facility] Comment on above: Performed By: #### NATHANIEL RAMÍREZ, HFP ####[facility] (DEFAULT)[address] [place] [address] Chloride [Moles/Vol] 102 mmol/L Normal 98-108 [facility] Comment on above: Performed By: #### NATHANIEL RAMÍREZ, HFP ####[facility] (DEFAULT)[address] [place] [address] CO2 [Moles/Vol] 20 mmol/L Low 21-31 [facility] Comment on above: Performed By: #### NATHANIEL RAMÍREZ, HFP ####[facility] (DEFAULT)[address] [place] [address] Creatinine [Mass/Vol] 1.56 mg/dL High 0.70-1.30 [facility] Comment on above: Performed By: #### NATHANIEL RAMÍREZ, HFP ####[facility] (DEFAULT)[address] [place] [address] GFR/1.73 sq M.predicted among non-blacks MDRD (S/P/Bld) [Vol rate/Area] 53 mL/min/{1.73_m2} Low >=60 [facility] Comment on above: Result Comment: Repo rted eGFR is based on the CKD-EPI 2020 equation using creatinine, age, and sex. Performed By: #### NATHANIEL RAMÍREZ, HFP ####[facility] (DEFAULT)[address] [place] [address] Glucose [Mass/Vol] 123 mg/dL High 70-99 [facility] Comment on above: Performed By: #### NATHANIEL RAMÍREZ, HFP ####[facility] (DEFAULT)[address] [facility] [place] [address] Osmolality [Osmolality] 281 mosm/kg Normal 278-305 [facility] Comment on above: Performed By: #### NATHANIEL RAMÍREZ, HFP ####[facility] (DEFAULT)[address] [place] [address] Potassium [Moles/Vol] 4.3 mmol/L Normal 3.5-5.0 [facility] Comment on above: Performed By: #### NATHANIEL RAMÍREZ, HFP ####[facility] (DEFAULT)[address] [place] [address] Sodium [Moles/Vol] 132 mmol/L Low 135-145 [facility] Comment on above: Performed By: #### NATHANIEL RAMÍREZ, HFP ####[facility] (DEFAULT)[address] [facility] [place] [address] Urea nitrogen [Mass/Vol] 16 mg/dL Normal 7-25 [facility] Comment on above: Performed By: #### NATHANIEL RAMÍREZ, HFP ####[facility] (DEFAULT)[address] [facility] [place] [address] Urea nitrogen/Creatinine [Mass ratio] 10 mg/mg Normal [facility] Comment on above: Performed By: #### NATHANIEL RAMÍREZ, HFP ####[facility] (DEFAULT)[address] [facility] [place] [address] EXTRA MICROon 08-30-2023 [facility] Albumin [Mass/Vol] 3.7 g/dL Normal 3.5-5.0 [facility] Comment on above: Performed By: #### NATHANIEL RAMÍREZ, HFP ####[facility] (DEFAULT)[address] [place] [address] ALP [Catalytic activity/Vol] 115 U/L Normal 32-126 [facility] Comment on above: Performed By: #### NATHANIEL RAMÍREZ, HFP ####[facility] (DEFAULT)[address] [place] [address] ALT [Catalytic activity/Vol] 22 U/L Normal 10-52 [facility] Comment on above: Performed By: #### NATHANIEL RAMÍREZ, HFP ####[facility] (DEFAULT)[address] [place] [address] AST [Catalytic activity/Vol] 34 U/L Normal 10-39 [facility] Comment on above: Performed By: #### NATHANIEL RAMÍREZ, HFP ####[facility] (DEFAULT)[address] [place] [address] Bilirubin [Mass/Vol] 1.2 mg/dL Normal <1.5 [facility] Comment on above: Performed By: #### NATHANIEL RAMÍREZ, HFP ####[facility] (DEFAULT)[address] [facility] [place] [address] Bilirubin.indirect [Mass/Vol] 0.3 mg/dL High <0.3 [facility] Comment on above: Performed By: #### NATHANIEL RAMÍREZ, HFP ####[facility] (DEFAULT)[address] [place] [address] Protein [Mass/Vol] 7.7 g/dL Normal 6.4-8.3 [facility] Comment on above: Performed By: #### NATHANIEL RAMÍREZ, HFP ####[facility] (DEFAULT)[address] [facility] [address] MAGNESIUMon 08-30-2023 Interpretation and review of laboratory results Normal [facility] Magnesium [Mass/Vol] 1.8 mg/dL 1.6 - 2 .6 mg/dL [facility] Magnesium [Mass/Vol] 1.8 mg/dL Normal 1.6-2.6 [facility] Comment on above: Performed By: #### NATHANIEL RAMÍREZ, HFP ####[facility] (DEFAULT)[address] [place] [address] No Panel Informationon 08-30 Interpretation and review of laboratory results Abnormal [facility] CBC,PLATELETSon 08-29-2023 Erythrocyte distribution width (RBC) [Ratio] [...] [facility] RBC (Bld) [#/Vol] 4.42 10*6/uL [facility] WBC (Bld) [#/Vol] 4.92 10*3/uL 3.73 - 10. 10 K/uL [facility] Hematocrit (Bld) [Volume fraction] 37.6 % Low 39.6-48.8 [facility] Comment on above: Performed By: #### H [facility] ####[facility] (DEFAULT)[address] [place] [address] Hemoglobin (Bld) [Mass/Vol] 12.2 g/dL Low 13.4-16.8 [facility] Comment on above: Performed By: #### H [facility] ####[facility] (DEFAULT)[address] [place] [address] MCV (RBC) [Entitic vol] 85.1 fL Normal 79.0-94.5 [facility] Comment on above: Performed By: #### H [facility] ####[facility] (DEFAULT)[address] [place] [address] Mean Cell Hgb 27.6 pg Normal 26.1-33.3 [facility] Comment on above: Performed By: #### H EMOGC ####[facility] (DEFAULT)[address] [place] [address] Mean Cell Hgb Conc 32.4 g/dL Normal 31.9-36.5 [facility] Comment on above: Performed By: #### H EMOGC ####[facility] (DEFAULT)[address] [place] [address] Platelet mean volume (Bld) [Entitic vol] 9.4 fL Normal 8.7-12.3 [facility] Comment on above: Performed By: #### H EMOGC ####[facility] (DEFAULT)[address] [place] [address] Platelets (Bld) [#/Vol] 233 10*3/uL Normal 146-337 [facility] Comment on above: Performed By: #### H EMOGC ####[facility] (DEFAULT)[address] [facility] [address] RBC (Bld) [#/Vol] 4.42 10*6/uL Normal 4.38-5.83 [facility] Comment on above: Performed By: #### H EMOGC ####[facility] (DEFAULT)[address] [place] [address] RBC Distribution 13.4 % Normal 10.9-14.3 [facility] Comment on above: Performed By: #### H EMOGC ####[facility] (DEFAULT)[address] [place] [address] WBC (Bld) [#/Vol] 4.92 10*3/uL Normal 3.73-10.10 [facility] Comment on above: Performed By: #### H EMOGC ####[facility] (DEFAULT)[address] [facility] [address] CHEM 7 (LYTES,BUN,CREA,GLUC) on 08-29-2023 Anion gap [Moles/Vol] 13 mmol/L 7 - 17 mmol/L [facility] Chloride [Moles/Vol] 105 mmol/L 98 - 10 8 mmol/L [facility] CO2 [Moles/Vol] 20 mmol/L Low 21 - 31 [facility]/L [facility] Creatinine [Mass/Vol] 1.55 mg/dL High 0.70 - 1.30 mg/dL [facility] eGFR, CKD-EPI, Male 55 Low - PINF [facility] Glucose [Mass/Vol] 108 mg/dL High 70 - 99 mg/dL [facility] Osmolality Calc [Osmolality] 283 [facility] Potassium [Moles/Vol] 4.5 mmol/L 3.5 - 5.0 mmol/L [facility] Sodium [Moles/Vol] 133 mmol/L Low 135 - 145 mmol/L [facility] Urea nitrogen [Mass/Vol] 19 mg/dL 7 - 25 mg/dL [facility] Urea nitrogen/Creatinine [Mass ratio] 12 mg/mg [facility] Anion gap [Moles/Vol] 13 mmol/L Normal 7-17 [facility] Comment on above: Performed By: #### M MERLE CHM7, GGTB, HFP ####[facility] (DEFAULT)[address] [facility] [place] [address] Chloride [Moles/Vol] 105 mmol/L Normal 98-108 [facility] Comment on above: Performed By: #### M MERLE CHM7, GGTB, HFP ####[facility] (DEFAULT)[address] [place] [address] CO2 [Moles/Vol] 20 mmol/L Low 21-31 [facility] Comment on above: Performed By: #### Rod BLOOM CHM7, GGTB, HFP ####[facility] (DEFAULT)[address] [place] [address] Creatinine [Mass/Vol] 1.55 mg/dL High 0.70-1.30 [facility] Comment on above: Performed By: #### M GO, CHM7, GGTB, HFP ####[facility] (DEFAULT)[address] [place] [address] GFR/1.73 sq M.predicted among non-blacks MDRD (S/P/Bld) [Vol rate/Area] 54 mL/min/{1.73_m2} Low >=60 [facility] Comment on above: Result Comment: Repo rted eGFR is based on the CKD-EPI 2020 equation using creatinine, age, and sex. Performed By: #### M GO, CHM7, GGTB, HFP ####[facility] (DEFAULT)[address] [place] [address] Glucose [Mass/Vol] 108 mg/dL High 70-99 [facility] Comment on above: Performed By: #### Rod GO CHM7, GGTB, HFP ####[facility] (DEFAULT)[address] [place] [address] Osmolality [Osmolality] 283 mosm/kg Normal 278-305 [facility] Comment on above: Performed By: #### Rod GO, CHM7, GGTB, HFP ####[facility] (DEFAULT)[address] [place] [address] Potassium [Moles/Vol] 4.5 mmol/L Normal 3.5-5.0 [facility] Comment on above: Performed By: #### M GO, CHM7, GGTB, HFP ####[facility] (DEFAULT)[address] [place] [address] Sodium [Moles/Vol] 133 mmol/L Low 135-145 [facility] Comment on above: Performed By: #### M GO, CHM7, GGTB, HFP ####[facility] (DEFAULT)[address] [place] [address] Urea nitrogen [Mass/Vol] 19 mg/dL Normal 7-25 [facility] Comment on above: Performed By: #### M GO, CHM7, GGTB, HFP ####[facility] (DEFAULT)[address] [place] [address] Urea nitrogen/Creatinine [Mass ratio] 12 mg/mg Normal [facility] Comment on above: Performed By: #### M GO, CHM7, GGTB, HFP ####[facility] (DEFAULT)[address] [place] [address] GGTon 08-29-2023 Gamma glutamyl transferase [Catalytic activity/Vol] 64 U/L 8 - 64 U/L [facility] Interpretation and review of laboratory results Normal [facility] Gamma glutamyl transferase [Catalytic activity/Vol] 64 U/L Normal 8-64 [facility] Comment on above: Performed By: #### M GO, CHM7, GGTB, HFP ####[facility] (DEFAULT)[address] [place] [address] HEPATIC FUNCTION PANELon Albumin [Mass/Vol] 3.3 g/dL [facility] Albumin [Mass/Vol] 3.3 g/dL Low 3.5-5.0 [facility] Comment on above: Performed By: #### M GO, CHM7, GGTB, HFP ####[facility] (DEFAULT)[address] [place] [address] ALP [Catalytic activity/Vol] 103 U/L Normal 32-126 [facility] Comment on above: Performed By: #### M GO, CHM7, GGTB, HFP ####[facility] (DEFAULT)[address] [place] [address] ALT [Catalytic activity/Vol] 18 U/L Normal 10-52 [facility] Comment on above: Performed By: #### M GO, CHM7, GGTB, HFP ####[facility] (DEFAULT)[address] [place] [address] AST [Catalytic activity/Vol] 27 U/L Normal 10-39 [facility] Comment on above: Performed By: #### M GO, CHM7, GGTB, HFP ####[facility] (DEFAULT)[address] [place] [address] Bilirubin [Mass/Vol] 1.1 mg/dL Normal <1.5 [facility] Comment on above: Performed By: #### M GO, CHM7, GGTB, HFP ####[facility] (DEFAULT)[address] [place] [address] Bilirubin.indirect [Mass/Vol] 0.3 mg/dL High <0.3 [facility] Comment on above: Performed By: #### M GO, CHM7, GGTB, HFP ####[facility] (DEFAULT)[address] [place] [address] Protein [Mass/Vol] 6.8 g/dL Normal 6.4-8.3 [facility] Comment on above: Performed By: #### M GO, CHM7, GGTB, HFP ####[facility] (DEFAULT)[address] [place] [address] HISTOPLASMA AND BLASTOMYCES ANTIGEN, ENZYME IMMUNOASSAY, SERMon 08-29-2023 Histoplasma/Blastomy antonia Ag Result Detected Invalid Interpretation Code Not Detected [facility] Comment on above: Result Comment: Anti gen from Histoplasma or Blastomyces (unable todifferentiate) detected. Result should be correlated withclinical presentation, exposure history, and otherdiagnostic procedures, including culture, serology,histopathology, and/or radiographic findings, to aid in thedifferentiation between histoplasmosis and blastomycosis.CRITICAL RESULT Performed By: #### H IBAG ####[facility] (DEFAULT)[address] [place] [address], [place] [address] Histoplasma/Blastomy antonia Ag Value 5.3 ng/mL Normal [facility] Comment on above: Result Comment: ---- ADDITIONAL INFORMATION This test was developed and its performance characteristicsdetermined by [facility] in a manner consistent with CLIArequirements. This test has not been cleared or approved bythe U.S. Food and Drug Administration.Test Performed by:[address] Director: Rosendo Bose M.D. Ph.D.; CLIA# [id number] Performed By: #### H IBAG ####[facility] (DEFAULT)[address] [place] [address], [place] [address] HISTOPLASMA ANTIGEN,URINEon 08-29-2023 HISTOPLASM AG, URINE Not detected Normal Not Detected [facility] Comment on above: Result Comment: No H istoplasma antigen detected.False negative results may occur. Repeat testing on anew specimen should be considered if clinically indicated. Performed By: #### Y HISTG ####[facility] (DEFAULT)[address] [facility] [place] [address] Histoplasma Ag Value Not detected Normal [facility] Comment on above: Result Comment: ---- ADDITIONAL INFORMATION This test has been modified from the cook seafood'sinstructions. Its performance characteristics weredetermined by [facility] in a manner consistent withCLIA requirements. This test has not been cleared orapproved by the U.S. Food and Drug Administration.Test Performed by:[facility] [place], [place] [address]Bzh Director: Rosendo Bose M.D. Ph.D.; CLIA# [id number] Performed By: #### Y HISTG ####[facility] (DEFAULT)[address] [place] [address] MAGNESIUMon 08-29-2023 Interpretation and review of laboratory results Normal [facility] Magnesium [Mass/Vol] 1.7 mg/dL 1.6 - 2 .6 mg/dL [facility] Magnesium [Mass/Vol] 1.7 mg/dL Normal 1.6-2.6 [facility] Comment on above: Performed By: #### M GO, CHM7, GGTB, HFP ####[facility] (DEFAULT)[address] [place] [address] No Panel Informationon 08-29 Interpretation and review of laboratory results Abnormal [facility] PT,INR,PTTon 08-29-2023 aPTT Coag (PPP) [Time] 29.3 s [facility] INR Coag (Bld) [Relative time] 1.1 {INR} 0.9 - 1.1 [facility] Interpretation and review of laboratory results Normal [facility] PT Coag (PPP) [Time] 13.8 s [facility] aPTT Coag (Bld) [Time] 29.3 s Normal 24.0-34.3 [facility] Comment on above: Performed By: #### P TPTT ####[facility] (DEFAULT)[address] [place] [address] INR Coag (PPP) [Relative time] 1.1 {INR} Normal 0.9-1.1 [facility] Comment on above: Performed By: #### P TPTT ####[facility] (DEFAULT)[address] [place] [address] PT Coag (PPP) [Time] 13.8 s Normal 11.9-14.2 [facility] Comment on above: Performed By: #### P TPTT ####[facility] (DEFAULT)[address] [place] [address] Portable XR Chest Viewson RADIOLOGY RADIOLOGY [facility] Portable XR Chest ViewsOrder ed By: Gerald Baer on 08-29-2023 [facility] Work Phone: TACROLIMUS LEVEL, TROUGH (WI E DRUG LEVEL)on 08-29-2023 Interpretation and review of laboratory results Normal [facility] Tacrolimus (Bld) [Mass/Vol] 8.9 ng/mL [facility] Tacrolimus, Trough 8.9 ng/mL Normal [facility] Transplant: 4.0-12.0, Therapeutic: 5.0-15.0 [facility] Comment on above: Order Comment: Pleas e draw at specified interval PRIOR to dose. Do not hold dose to wait for level. Specimens batched twice per day, (M-F) and once per day weekendsMethod performed is a chemiluminescent microparticle immunoasssay on the [employer] i2000.The range is based on experience at [facility] and users should be aware that target concentrations vary widely depending on concomitant therapy, time post-transplant, and desired degree of immunosuppression. Performed By: #### T ACRO ####[facility] (DEFAULT)[address] [place] [address] Tacrolimus, Trough 8.7 ng/mL Normal [facility] Transplant: 4.0-12.0, Therapeutic: 5.0-15.0 [facility] Comment on above: Order Comment: Pleas e draw at specified interval PRIOR to dose. Do not hold dose to wait for level. Specimens batched twice per day, (M-F) and once per day weekendsMethod performed is a chemiluminescent microparticle immunoasssay on the [employer] i2000.The range is based on experience at [facility] and users should be aware that target concentrations vary widely depending on concomitant therapy, time post-transplant, and desired degree of immunosuppression. Performed By: #### T ACRO ####[facility] (DEFAULT)[address] [place] [address] TACROLIMUS LEVEL, TROUGH (WI E DRUG LEVEL)Ordered By: Rxoanne Louie on 08-29-2023 Interpretation and review of laboratory results Normal [facility] Tacrolimus (Bld) [Mass/Vol] 8.7 ng/mL [facility] URINALYSIS REFLEX TO CULTURE PERFORMABLEOrdered By: Shaji Kelly on 08-29-2023 Appearance (U) Clear Clear [facility] Bacteria LM Ql (Urine sed) ABSENT ABSENT [facility] Calcium Oxalate Crystals PRESENT [facility] Color (U) Yellow Yellow [facility] Epithelial cells.squamous LM Ql (Urine sed) 0-2/hpf 0-2/hpf, 3-5/hpf = 1+ [facility] Glucose Test strip (U) [Mass/Vol] Negative Negative [facility] Interpretation and review of laboratory results Abnormal [facility] Ketones (U) [Mass/Vol] Negative Negative [facility] Leukocyte esterase Test strip Ql (U) Negative Negative [facility] Nitrite Ql (U) Negative Negative [facility] pH (U) 6.0 [pH] 5.0 - 7.0 [facility] Protein (U) [Mass/Vol] Negative Negative [facility] RBC (U) [#/Vol] Trace Abnormal Negative [facility] RBC LM.HPF (Urine sed) [#/Area] 3-5 Abnormal [facility] Specific gravity (U) [Rel density] 1.015 1.001 - 1.035 [facility] Urobilinogen (U) [Mass/Vol] 1.0 E.U./dL 0.2 E.U/dL, 1.0 E.U/dL [facility] WBC LM.HPF (Urine sed) [#/Area] 0 - 5 [facility] URINALYSIS REFLEX TO CULTURE PERFORMABLEon 08-29-2023 Appearance (U) Clear Normal Clear [facility] Comment on above: Order Comment: For i ndwelling catheters, specimen collection is acceptable on catheter day 1 and 2 only. ? Performed By: #### U [id number] ####[facility] (DEFAULT)[address] [facility] [place] [address] Bacteria ABSENT Normal ABSENT [facility] Comment on above: Order Comment: For i ndwelling catheters, specimen collection is acceptable on catheter day 1 and 2 only. ? Performed By: #### U [id number] ####[facility] (DEFAULT)[address] [facility] [place] [address] Blood Urine Trace Abnormal Negative [facility] Comment on above: Order Comment: For i ndwelling catheters, specimen collection is acceptable on catheter day 1 and 2 only. ? Performed By: #### U [id number] ####[facility] (DEFAULT)[address] [facility] [address] Calcium Oxalate Crystals PRESENT Normal [facility] Comment on above: Order Comment: For i ndwelling catheters, specimen collection is acceptable on catheter day 1 and 2 only. ? Performed By: #### U [id number] ####[facility] (DEFAULT)[address] [facility] [address] Color (U) Yellow Normal Yellow [facility] Comment on above: Order Comment: For i ndwelling catheters, specimen collection is acceptable on catheter day 1 and 2 only. ? Performed By: #### U [id number] ####[facility] (DEFAULT)[address] [facility] [address] Glucose Ql (U) Negative Normal Negative [facility] Comment on above: Order Comment: For i ndwelling catheters, specimen collection is acceptable on catheter day 1 and 2 only. ? Performed By: #### U [id number] ####[facility] (DEFAULT)[address] [place] [address] Ketones Ql (U) Negative Normal Negative [facility] Comment on above: Order Comment: For i ndwelling catheters, specimen collection is acceptable on catheter day 1 and 2 only. ? Performed By: #### U [id number] ####[facility] (DEFAULT)[address] [facility] [place] [address] Leukocyte esterase Test strip Ql (U) Negative Normal Negative [facility] Comment on above: Order Comment: For i ndwelling catheters, specimen collection is acceptable on catheter day 1 and 2 only. ? Performed By: #### U [id number] ####[facility] (DEFAULT)[address] [place] [address] Nitrites Urine Negative Normal Negative [facility] Comment on above: Order Comment: For i ndwelling catheters, specimen collection is acceptable on catheter day 1 and 2 only. ? Performed By: #### U [id number] ####[facility] (DEFAULT)[address] [place] [address] pH (U) 6.0 [pH] Normal 5.0-7.0 [facility] Comment on above: Order Comment: For i ndwelling catheters, specimen collection is acceptable on catheter day 1 and 2 only. ? Performed By: #### U [id number] ####[facility] (DEFAULT)[address] [place] [address] Protein Urine Negative Normal Negative [facility] Comment on above: Order Comment: For i ndwelling catheters, specimen collection is acceptable on catheter day 1 and 2 only. ? Performed By: #### U [id number] ####[facility] (DEFAULT)[address] [place] [address] RBC Urine 3-5 Abnormal 0-2 [facility] Comment on above: Order Comment: For i ndwelling catheters, specimen collection is acceptable on catheter day 1 and 2 only. ? Performed By: #### U [id number] ####[facility] (DEFAULT)[address] [facility] [address] Specific [place] Urine 1.015 Normal 1.001-1.035 [facility] Comment on above: Order Comment: For i ndwelling catheters, specimen collection is acceptable on catheter day 1 and 2 only. ? Performed By: #### U [id number] ####[facility] (DEFAULT)[address] [place] [address], [place] [address] Squamous/Epithelial Cells 0-2/hpf Normal 0-2/hpf, 3-5/hpf = 1+ [facility] Comment on above: Order Comment: For i ndwelling catheters, specimen collection is acceptable on catheter day 1 and 2 only. ? Performed By: #### U [id number] ####[facility] (DEFAULT)[address] [place] [address], [place] [address] Urobilinogen Urine 1.0 E.U./dL Normal 0.2 E.U/d L, 1.0 E.U/dL [facility] Comment on above: Order Comment: For i ndwelling catheters, specimen collection is acceptable on catheter day 1 and 2 only. ? Performed By: #### U [id number] ####[facility] (DEFAULT)[address] [place] [address], [place] [address] WBC Urine 0 - 5 Normal 0 - 5 [facility] Comment on above: Order Comment: For i ndwelling catheters, specimen collection is acceptable on catheter day 1 and 2 only. ? Performed By: #### U [id number] ####[facility] (DEFAULT)[address] [place] [address], [place] [address] URINE CULTUREon 08-29-2023 Bacteria identified Cx Nom (U) No Growth Normal [facility] Comment on above: Order Comment: For i ndwelling catheters, specimen collection is acceptable on catheter day 1 and 2 only. Sung top vacutainer. Urine must be to the fill line to process (4mls). If minimum volume, send urine in a yellow top vacutainer tube. Performed By: #### U R ####[facility] (DEFAULT)[address] [place] [address] US RENAL TRANSPLANT SCANon 0 08-29-2023 US RENAL TRANSPLANT SCAN Normal [facility] US for transplanted kidney l imitedon 08-29-2023 RADIOLOGY RADIOLOGY [facility] Radiology Study observation (narrative) [facility] US for transplanted kidney l imitedOrdered By: Romana Matias on 08-29-2023 [facility] Work Phone: XR CHEST PORTABLEon 08-29-20 23 XR CHEST PORTABLE Normal [facility] BLOOD CULTUREon 08-28-2023 Bacteria identified Cx Nom (Unsp spec) NO GROWTH DAY 5 OF 5 Normal [facility] Comment on above: Order Comment: 2 [...] [facility] (DEFAULT)[address] [place] [address] Bacteria identified Cx Nom (Unsp spec) NO GROWTH DAY 5 OF 5 Normal [facility] Comment on above: Order Comment: 2 [...] ####[facility] (DEFAULT)[address] [place] [address] DARYL AURIS SCREEN BY PCRo n 08-28-2023 Daryl auris Screen by PCR Not detected Normal Not Detected [facility] Comment on above: Order Comment: This test was performed using a real-time PCR assay. This test was developed, and its performance characteristics determined by [facility]. It has not been cleared or approved by the FDA. The laboratory is regulated under CLIA as qualified to perform high-complexity testing. This test is used for clinical purposes. It should not be regarded as investigational or for research. Performed By: #### C LEXX TOMLINSONIS SCREEN BY PCR ####[facility] (DEFAULT)[address] [place] [address] CBC AND ELECTRONIC DIFFon Basophils (Bld) [#/Vol] K/uL 0.00 - 0.09 K/uL [facility] Basophils/100 WBC (Bld) 0.6 % [facility] Differential cell count method Nom (Bld) Electronic Differential [facility] Eosinophils (Bld) [#/Vol] 0.10 10*3/uL 0.00 - [...] Nucleated RBC/100 WBC (Bld) [Ratio] 0.0 % [facility] Platelet mean volume (Bld) [Entitic vol] 9.3 fL 8.7 - 12.3 fL [facility] Platelets (Bld) [#/Vol] 262 10*3/uL 146 - 337 K/uL [facility] RBC (Bld) [#/Vol] 4.46 10*6/uL [facility] Segmented neutrophils/100 WBC (Bld) 45.7 % [facility] WBC (Bld) [#/Vol] 4.74 10*3/uL 3.73 - 10. 10 K/uL [facility] Abs Baso Auto < Normal 0.00-0.09 [facility] Comment on above: Performed By: #### L [id number] ####[facility] (DEFAULT)[address] [place] [address] Basophils/100 WBC (Bld) 0.6 % Normal [facility] Comment on above: Performed By: #### L AB980 ####[facility] (DEFAULT)[address] [place] [address] DIFF STATUS Electronic Differential Normal [facility] Comment on above: Performed By: #### L AB980 ####[facility] (DEFAULT)[address] [place] [address] Eosinophils (Bld) [#/Vol] 0.10 10*3/uL Normal 0.00-0.48 [facility] Comment on above: Performed By: #### L AB980 ####[facility] (DEFAULT)[address] [facility] [address] Eosinophils/100 WBC (Bld) 2.1 % Normal [facility] Comment on above: Performed By: #### L AB980 ####[facility] (DEFAULT)[address] [facility] [place] [address] Hematocrit (Bld) [Volume fraction] 37.9 % Low 39.6-48.8 [facility] Comment on above: Performed By: #### L AB980 ####[facility] (DEFAULT)[address] [place] [address], [place] [address] Hemoglobin (Bld) [Mass/Vol] 12.4 g/dL Low 13.4-16.8 [facility] Comment on above: Performed By: #### L AB980 ####[facility] (DEFAULT)[address] [facility] [address] Immature Grans % 0.6 % Normal [facility] Comment on above: Performed By: #### L AB980 ####[facility] (DEFAULT)[address] [place] [address], [place] [address] Immature Grans Absolute < Normal <=0.07 [facility] Comment on above: Performed By: #### L AB980 ####[facility] (DEFAULT)[address] [facility] [address] Lymphocytes (Bld) [#/Vol] 1.76 10*3/uL Normal 0.83-3.57 [facility] Comment on above: Performed By: #### L AB980 ####[facility] (DEFAULT)[address] [place] [address] Lymphocytes/100 WBC (Bld) 37.1 % Normal [facility] Comment on above: Performed By: #### L AB980 ####[facility] (DEFAULT)[address] [place] [address] MCV (RBC) [Entitic vol] 85.0 fL Normal 79.0-94.5 [facility] Comment on above: Performed By: #### L AB980 ####[facility] (DEFAULT)[address] [facility] [address] Mean Cell Hgb 27.8 pg Normal 26.1-33.3 [facility] Comment on above: Performed By: #### L AB980 ####[facility] (DEFAULT)[address] [place] [address] Mean Cell Hgb Conc 32.7 g/dL Normal 31.9-36.5 [facility] Comment on above: Performed By: #### L AB980 ####[facility] (DEFAULT)[address] [place] [address] Monocytes (Bld) [#/Vol] 0.66 10*3/uL Normal 0.24-0.93 [facility] Comment on above: Performed By: #### L AB980 ####[facility] (DEFAULT)[address] [place] [address] Monocytes/100 WBC (Bld) 13.9 % Normal [facility] Comment on above: Performed By: #### L AB980 ####[facility] (DEFAULT)[address] [place] [address] Nucleated RBC 0.0 /100 WBC Normal <=0.2 [facility] Comment on above: Performed By: #### L AB980 ####[facility] (DEFAULT)[address] [place] [address] Platelet mean volume (Bld) [Entitic vol] 9.3 fL Normal 8.7-12.3 [facility] Comment on above: Performed By: #### L AB980 ####[facility] (DEFAULT)[address] [place] [address] Platelets (Bld) [#/Vol] 262 10*3/uL Normal 146-337 [facility] Comment on above: Performed By: #### L AB980 ####[facility] (DEFAULT)[address] [place] [address] RBC (Bld) [#/Vol] 4.46 10*6/uL Normal 4.38-5.83 [facility] Comment on above: Performed By: #### L AB980 ####[facility] (DEFAULT)[address] [place] [address] RBC Distribution 13.4 % Normal 10.9-14.3 [facility] Comment on above: Performed By: #### L AB980 ####[facility] (DEFAULT)[address] [place] [address] Segs + Bands Auto 45.7 % Normal [facility] Comment on above: Performed By: #### L AB980 ####[facility] (DEFAULT)[address] [place] [address] Segs + Bands,Absolute Auto 2.16 K/uL Normal 1.57-6.19 [facility] Comment on above: Performed By: #### L AB980 ####[facility] (DEFAULT)[address] [place] [address] WBC (Bld) [#/Vol] 4.74 10*3/uL Normal 3.73-10.10 [facility] Comment on above: Performed By: #### L AB980 ####[facility] (DEFAULT)[address] [place] [address] CHEM 6 (LYTES, BUN CREA)on 0 08-28-2023 [...] eGFR, CKD-EPI, Male 52 Low - PINF [facility] Interpretation and review of laboratory [...] Center Urea nitrogen/Creatinine [Mass ratio] 14 mg/mg [facility] Anion gap [Moles/Vol] 13 mmol/L Normal 7-17 [facility] Comment on above: Performed By: #### C HM6 ####[facility] (DEFAULT)[address] [place] [address] Chloride [Moles/Vol] 103 mmol/L Normal 98-108 [facility] Comment on above: Performed By: #### C HM6 ####[facility] (DEFAULT)[address] [place] [address] CO2 [Moles/Vol] 22 mmol/L Normal 21-31 [facility] Comment on above: Performed By: #### C HM6 ####[facility] (DEFAULT)[address] [place] [address] Creatinine [Mass/Vol] 1.62 mg/dL High 0.70-1.30 [facility] Comment on above: Performed By: #### C HM6 ####[facility] (DEFAULT)[address] [place] [address] GFR/1.73 sq M.predicted among non-blacks MDRD (S/P/Bld) [Vol rate/Area] 51 mL/min/{1.73_m2} Low >=60 [facility] Comment on above: Result Comment: Repo rted eGFR is based on the CKD-EPI 2020 equation using creatinine, age, and sex. Performed By: #### C HM6 ####[facility] (DEFAULT)[address] [place] [address] Potassium [Moles/Vol] 4.3 mmol/L Normal 3.5-5.0 [facility] Comment on above: Performed By: #### C HM6 ####[facility] (DEFAULT)[address] [place] [address] Sodium [Moles/Vol] 134 mmol/L Low 135-145 [facility] Comment on above: Performed By: #### C HM6 ####[facility] (DEFAULT)[address] [place] [address] Urea nitrogen [Mass/Vol] 22 mg/dL Normal 7-25 [facility] Comment on above: Performed By: #### C HM6 ####[facility] (DEFAULT)[address] [facility] [address] Urea nitrogen/Creatinine [Mass ratio] 14 mg/mg Normal [facility] Comment on above: Performed By: #### C HM6 ####[facility] (DEFAULT)[address] [place] [address] IMMUNOCOMPROMISED RESPIRATOR Y PANELon 08-28-2023 Adenovirus - [...] assay. Performed By: #### I CRESP ####[facility] (DEFAULT)[address] [place] [address] Bordetella Parapertussis Not detected Normal Not Detected [...] [facility] (DEFAULT)[address] [place] [address], [place] [address] Bordetella Pertussis Not detected Normal Not Detected [...] [facility] (DEFAULT)[address] [place] [address], [place] [address] Chlamydia Pneumoniae Not detected Normal Not Detected [...] [facility] (DEFAULT)[address] [place] [address] Coronavirus 229E Not detected Normal Not Detected [...] acid assay. Performed By: #### I CRESP ####[facility] (DEFAULT[facility] [place] [address], [place] [address] Coronavirus Hku1 Not detected Normal Not Detected [...] assay. Performed By: #### I CRESP ####[facility] (DEFAULT)[address] [place] [address], [place] [address] Coronavirus Nl63 Not detected Normal Not Detected [...] assay. Performed By: #### I CRESP ####[facility] (DEFAULT)[address] [place] [address] Coronavirus Oc43 Not detected Normal Not Detected [...] [facility] (DEFAULT)[address] [place] [address], [place] [address] Influenza A - Pcr Not detected Normal Not Detected [facility] Comment on above: Order [...] [facility] (DEFAULT)[address] [place] [address], [place] [address] Influenza B - Pcr Not detected Normal Not Detected [facility] Comment on above: Order [...] [facility] (DEFAULT)[address] [place] [address], [place] [address] Metapneumovirus - Pcr Not detected Normal Not [...] ####[facility] (DEFAULT)[address] [place] [address] Mycoplasma Pneumoniae Not detected Normal Not Detected [...] [facility] (DEFAULT)[address] [place] [address], [place] [address] Parainfluenza 1 - Pcr Not detected Normal [...] [facility] (DEFAULT)[address] [place] [address], [place] [address] Parainfluenza 2 - Pcr Not detected Normal [...] ####[facility] (DEFAULT)[address] [address] Parainfluenza 3 - Pcr Not detected Normal [...] ####[facility] (DEFAULT)[address] [place] [address] Parainfluenza 4 - Pcr Not detected Normal [...] ####[facility] (DEFAULT)[address] [place] [address] Rhinovirus/Enterovir us - PCR Not detected Normal [...] ####[facility] (DEFAULT)[address] [address] Rsv - Pcr Not detected Normal Not [...] [facility] (DEFAULT)[address] [address] SARS-CoV-2 (COVID-19) RNA ESTELITA+probe Ql (Unsp spec) Not detected Normal NOT DETECTED [facility] Comment on above: [...] [facility] (DEFAULT)[address] [place] [address] Portable XR Chest Viewson Radiology Study observation (narrative) [facility] Respiratory virus DNA+RNA NA A+probe Nom (Unsp spec)Ordered By: Dayami Harris on 08-28-2023 Adenovirus DNA ESTELITA+probe Nom (Unsp spec) Not detected Not Detected [facility] B. parapertussis DNA ESTELITA+probe Ql (Unsp spec) Not detected Not Detected [facility] B. pertussis DNA ESTELITA+probe Ql (Unsp spec) Not detected Not Detected [facility] C. pneumoniae DNA ESTELITA+probe Ql (Unsp spec) Not detected Not Detected [facility] FLUAV RNA ESTELITA+probe Ql (Unsp spec) Not detected Not Detected [facility] FLUBV RNA ESTELITA+probe Ql (Unsp spec) Not detected Not Detected [facility] HCoV 229E RNA ESTELITA+non-probe Ql (Nph) Not detected Not Detected [facility] HCoV HKU1 RNA ESTELITA+non-probe Ql (Nph) Not detected Not Detected [facility] HCoV NL63 RNA ESTELITA+non-probe Ql (Nph) Not detected Not Detected [facility] HCoV OC43 RNA ESTELITA+non-probe Ql (Nph) Not detected Not Detected [facility] hMPV A RNA ESTELITA+probe Ql (Unsp spec) Not detected Not Detected [facility] Interpretation and review of laboratory results Normal [facility] M. pneumoniae DNA ESTELITA+probe Ql (Unsp spec) Not detected Not Detected [facility] Parainfluenza virus 1 RNA ESTELITA+probe Ql (Unsp spec) Not detected Not Detected [facility] Parainfluenza virus 2 RNA ESTELITA+probe Ql (Unsp spec) Not detected Not Detected [facility] Parainfluenza virus 3 RNA ESTELITA+probe Ql (Unsp spec) Not detected Not Detected [facility] Parainfluenza virus 4 RNA ESTELITA+probe Ql (Unsp spec) Not detected Not Detected [facility] Rhinovirus+Enterovir us RNA ESTELITA+probe Ql (Unsp spec) Not detected Not Detected [facility] RSV RNA ESTELITA+probe Ql (Unsp spec) Not detected Not Detected [facility] SARS-CoV-2 (COVID-19) RNA ESTELITA+probe Ql (Unsp spec) Not detected NOT DETECTED [facility] ALBUMINon 04-28-2023 Albumin [Mass/Vol] 4.0 g/dL Normal 3.4-5.0 [facility] Comment on above: Performed By: #### C MP #### [facility] [address] [place] [address] Dr. Dwight Waters ALKALINE PHOSPHAon ALP [Catalytic activity/Vol] 106 U/L Normal 46-116 [facility] Comment on above: Performed By: #### F [id number] #### [facility] [address] [place] [address] Dr. Dwight Waters BILIRUBIN CONJUGATED (DIRECT )on 04-28-2023 BILI, CONJUGATED 0.3 mg/dL Critically high 0.0-0.2 [facility] Comment on above: Performed By: #### C MP #### [facility] [address] [place] [address] Dr. Dwight Waters BILIRUBIN TOTALon 04-28-2023 Bilirubin [Mass/Vol] 1.4 mg/dL Critically high 0.2-1.0 [facility] Comment on above: Performed By: #### C MP #### [facility] [address] [place] [address] Dr. Dwight Waters BUNon 04-28-2023 Urea nitrogen [Mass/Vol] 12.0 mg/dL Normal 7.0-18.0 [facility] Comment on above: Performed By: #### U RTPCR #### [facility] [address] [place] [address] Dr. Dwight Waters CALCIUMon 04-28-2023 Calcium [Mass/Vol] 9.3 mg/dL Normal 8.5-10.1 [facility] Comment on above: Performed By: #### U RTPCR #### [facility] [address] [place] [address] Dr. Diwght Waters CBC AUTO DIFFon 04-28-2023 BASO # 0.1 103/ul Normal 0.0-0.1 [facility] Comment on above: Performed By: #### C BC #### [facility] [address] [place] [address] Dr. Dwight Waters Basophils/100 WBC (Bld) 0.9 % Normal 0.2-2.0 [facility] Comment on above: Performed By: #### C BC #### [facility] [address] [place] [address] Dr. Dwight Waters EO # 0.2 103/ul Normal 0.0-0.7 [facility] Comment on above: Performed By: #### C BC #### [facility] [address] [place] [address] Dr. Dwight Waters Eosinophils/100 WBC (Bld) 3.8 % Normal 0.9-7.0 [facility] Comment on above: Performed By: #### C BC #### [facility] [address] [place] [address] Dr. Dwight Waters Erythrocyte distribution width (RBC) [Ratio] 12.5 % Normal 11.0-15.0 [facility] Comment on above: Performed By: #### C BC #### [facility] [address] [place] [address] Dr. Dwight Waters Hematocrit (Bld) [Volume fraction] 49.8 % Normal 42.0-54.0 [facility] Comment on above: Performed By: #### C BC #### [facility] [address] [place] [address] Dr. Dwight Waters Hemoglobin (Bld) [Mass/Vol] 16.4 g/dL Normal 14.0-18.0 [facility] Comment on above: Performed By: #### C BC #### [facility] [address] [place] [address] Dr. Dwight Waters IG # 0.01 10e3/ul Normal 0.00-0.03 [facility] Comment on above: Performed By: #### C BC #### [facility] [address] [place] [address] Dr. Dwight Waters IG % 0.2 % Normal 0.0-0.5 [facility] Comment on above: Performed By: #### C BC #### [facility] [address] [place] [address] Dr. Dwight Waters LYMPH # 2.1 103/ul Normal 1.2-3.8 [facility] Comment on above: Performed By: #### C BC #### [facility] [address] [place] [address] Dr. Dwight Waters Lymphocytes/100 WBC (Bld) 39.1 % Normal 20.5-60.0 [facility] Comment on above: Performed By: #### C BC #### [facility] [address] [place] [address] Dr. Dwight Waters MANUAL DIFF REQ NO Normal [facility] Comment on above: Performed By: #### C BC #### [facility] [address] [place] [address] Dr. Dwight Waters MCH (RBC) [Entitic mass] 28.6 pg Normal 25.9-34.0 [facility] Comment on above: Performed By: #### C BC #### [facility] [address] [place] [address] Dr. Dwight Waters MCHC (RBC) [Mass/Vol] 32.9 g/dL Normal 29.9-35.2 [facility] Comment on above: Performed By: #### C BC #### [facility] [address] [place] [address] Dr. Dwight Waters MCV (RBC) [Entitic vol] 86.9 fL Normal 80.0-94.0 [facility] Comment on above: Performed By: #### C BC #### [facility] [address] [place] [address] Dr. Dwight Waters MONO # 0.6 103/ul Normal 0.3-0.8 [facility] Comment on above: Performed By: #### C BC #### [facility] [address] [place] [address] Dr. Dwight Waters Monocytes/100 WBC (Bld) 10.6 % Normal 1.7-12.0 [facility] Comment on above: Performed By: #### C BC #### [facility] [address] [place] [address] Dr. Dwight Waters NEUT # 2.5 103/ul Normal 1.4-6.5 [facility] Comment on above: Performed By: #### C BC #### [facility] [address] [place] [address] Dr. Dwight Waters Neutrophils/100 WBC (Bld) 45.4 % Normal 43.0-75.0 [facility] Comment on above: Performed By: #### C BC #### [facility] [address] [place] [address] Dr. Dwight Waters Platelet mean volume (Bld) [Entitic vol] 9.3 fL Critically low 9.5-13.5 [facility] Comment on above: Performed By: #### C BC #### [facility] [address] [place] [address] Dr. Dwight Waters PLT 248 103/ul Normal 150-450 [facility] Comment on above: Performed By: #### C BC #### [facility] [address] [place] [address] Dr. Dwight Waters RBC 5.73 106/ul Normal 4.70-6.10 [facility] Comment on above: Performed By: #### C BC #### [facility] [address] [place] [address] Dr. Dwight Waters WBC 5.5 103/ul Normal 4.0-11.0 [facility] Comment on above: Performed By: #### C BC #### [facility] [address] [place] [address] Dr. Dwight Waters CHLORIDEon 04-28-2023 Chloride [Moles/Vol] 107 mmol/L Normal 98-107 [facility] Comment on above: Performed By: #### U RTPCR #### [facility] [address] [place] [address] Dr. Dwight Waters CO2on 04-28-2023 CO2 [Moles/Vol] 28.9 mmol/L Normal 21.0-32.0 [facility] Comment on above: Performed By: #### U RTPCR #### [facility] [address] [place] [address] Dr. Dwight Waters CREATININEon 04-28-2023 Creatinine [Mass/Vol] 1.17 mg/dL Normal 0.70-1.30 [facility] Comment on above: Performed By: #### U RTPCR #### [facility] [address] [address] [address] Dwight Waters EGFR-AF NIGERIEN >60 Normal >=60 [facility] Comment on above: Performed By: #### U RTPCR #### [facility] [address] [place] [address] Dr. Dwight Waters EGFR-NON AF NIGERIEN >60 Normal >=60 [facility] Comment on above: Performed By: #### U RTPCR #### [facility] [address] [place] [address] Dr. Dwight Waters GGTon 04-28-2023 Gamma glutamyl transferase [Catalytic activity/Vol] 27 U/L Normal 15-85 [facility] Comment on above: Performed By: #### U RTPCR #### [facility] [address] [place] [address] Dr. Dwight Waters GLUCOSE BLOODon 04-28-2023 Glucose [Mass/Vol] 110 mg/dL Critically high 74-106 [facility] Comment on above: Performed By: #### U RTPCR #### [facility] [address] [place] [address] Dr. Dwight Waters MAGNESIUMon 04-28-2023 Magnesium [Mass/Vol] 1.7 mg/dL Critically low 1.8-2.4 [facility] Comment on above: Performed By: #### U RTPCR #### [facility] [address] [place] [address] Dr. Dwight Waters NAon 04-28-2023 Sodium [Moles/Vol] 144 mmol/L Normal 136-145 [facility] Comment on above: Performed By: #### U RTPCR #### [facility] [address] [place] [address] Dr. Dwight Waters PHOSPHORUSon 04-28-2023 Phosphate [Mass/Vol] 3.2 mg/dL Normal 2.6-4.7 [facility] Comment on above: Performed By: #### U RTPCR #### [facility] [address] [place] [address] Dr. Dwight Waters POTASSIUMon 04-28-2023 Potassium [Moles/Vol] 4.0 mmol/L Normal 3.5-5.1 [facility] Comment on above: Performed By: #### U RTPCR #### [facility] [address] [place] [address] Dr. Dwight Waters SGOTon 04-28-2023 AST [Catalytic activity/Vol] 25 U/L Normal 15-37 [facility] Comment on above: Performed By: #### C MP #### [facility] [address] [place] [address] Dr. Dwight Waters SGPTon 04-28-2023 ALT [Catalytic activity/Vol] 40 U/L Normal 16-63 [facility] Comment on above: Performed By: #### C MP #### [facility] [address] [place] [address] Dr. Dwight Waters URINE T PROTEIN CREAT RATIOo n 04-28-2023 Protein (U) [Mass/Vol] 10.1 mg/dL Normal <=12.0 [facility] Comment on above: Performed By: #### U RTPCR #### [facility] [address] [place] [address] Dr. Dwight Waters UR PROT CREAT RAT 0.14 Normal [facility] Comment on above: Performed By: #### U RTPCR #### [facility] [address] [place] [address] Dr. Dwight Waters URINE CREAT 74.40 mg/dL Normal 20.00-300.00 [facility] Comment on above: Performed By: #### U RTPCR #### [facility] [address] [place] [address] Dr. Dwight Waters BK VIRUS PCR QUANTon 023 BKV DNA QUANT PCR PLASMA Negative Normal Negative [facility] Comment on above: Result Comment: No B K DNA detected. . The linear range of the assay is 22 - 100,000,000 IU/mL. Performed By: #### B KVIRUS #### [facility] [address] [place] [address] Dr. Dwight Waters Log10 BKV DNA Plasma Normal [facility] Comment on above: Performed By: #### B KVIRUS #### [facility] [address] [address] [address] Dwight Waters FK506 (TACROLIMUS) WHOLE BLO ODon 03-04-2023 Tacrolimus (FK506), Blood 5.9 ng/mL Normal 2.0-20.0 [facility] Comment on above: Result Comment: Trou gh (immediately following transplant) 15.0 . Trough (steady state, 2 weeks or more after transplant): 3.0 - 8.0 . Performed by LC-MS/MS technology. Performed By: #### C MP #### [facility] [address] [place] [address] Dr. Dwight Waters ALBUMINon 03-02-2023 Albumin [Mass/Vol] 3.9 g/dL Normal 3.4-5.0 [facility] Comment on above: Performed By: #### U RTPCR #### [facility] [address] [place] [address] Dr. Dwight Waters ALKALINE PHOSPHAon 3 ALP [Catalytic activity/Vol] 105 U/L Normal 46-116 [facility] Comment on above: Performed By: #### U RTPCR #### [facility] [address] [address] [address] Dwight Waters BILIRUBIN CONJUGATED (DIRECT )on 03-02-2023 BILI, CONJUGATED 0.2 mg/dL Normal 0.0-0.2 [facility] Comment on above: Performed By: #### U RTPCR #### [facility] [address] [place] [address] Dr. Dwight Waters BILIRUBIN TOTALon 03-02-2023 Bilirubin [Mass/Vol] 0.9 mg/dL Normal 0.2-1.0 [facility] Comment on above: Performed By: #### U RTPCR #### [facility] [address] [place] [address] Dr. Dwight Waters CBC AUTO DIFFon 03-02-2023 BASO # 0.1 103/ul Normal 0.0-0.1 [facility] Comment on above: Performed By: #### C BC #### [facility] [address] [place] [address] Dr. Dwight Waters Basophils/100 WBC (Bld) 0.9 % Normal 0.2-2.0 [facility] Comment on above: Performed By: #### C BC #### [facility] [address] [place] [address] Dr. Dwight Waters EO # 0.2 103/ul Normal 0.0-0.7 [facility] Comment on above: Performed By: #### C BC #### [facility] [address] [place] [address] Dr. Dwight Waters Eosinophils/100 WBC (Bld) 3.5 % Normal 0.9-7.0 [facility] Comment on above: Performed By: #### C BC #### [facility] [address] [place] [address] Dr. Dwight Waters Erythrocyte distribution width (RBC) [Ratio] 12.7 % Normal 11.0-15.0 [facility] Comment on above: Performed By: #### C BC #### [facility] [address] [place] [address] Dr. Dwight Waters Hematocrit (Bld) [Volume fraction] 48.2 % Normal 42.0-54.0 [facility] Comment on above: Performed By: #### C BC #### [facility] [address] [place] [address] Dr. Dwight Waters Hemoglobin (Bld) [Mass/Vol] 15.9 g/dL Normal 14.0-18.0 [facility] Comment on above: Performed By: #### C BC #### [facility] [address] [place] [address] Dr. Dwight Waters IG # 0.01 10e3/ul Normal 0.00-0.03 [facility] Comment on above: Performed By: #### C BC #### [facility] [address] [place] [address] Dr. Dwight Waters IG % 0.2 % Normal 0.0-0.5 [facility] Comment on above: Performed By: #### C BC #### [facility] [address] [place] [address] Dr. Dwight Waters LYMPH # 2.1 103/ul Normal 1.2-3.8 [facility] Comment on above: Performed By: #### C BC #### [facility] [address] [place] [address] Dr. Dwight Waters Lymphocytes/100 WBC (Bld) 37.4 % Normal 20.5-60.0 [facility] Comment on above: Performed By: #### C BC #### [facility] [address] [place] [address] Dr. Dwight Waters MANUAL DIFF REQ NO Normal [facility] Comment on above: Performed By: #### C BC #### [facility] [address] [place] [address] Dr. Dwight Waters MCH (RBC) [Entitic mass] 28.3 pg Normal 25.9-34.0 [facility] Comment on above: Performed By: #### C BC #### [facility] [address] [place] [address] Dr. Dwight Waters MCHC (RBC) [Mass/Vol] 33.0 g/dL Normal 29.9-35.2 [facility] Comment on above: Performed By: #### C BC #### [facility] [address] [place] [address] Dr. Dwight Waters MCV (RBC) [Entitic vol] 85.8 fL Normal 80.0-94.0 [facility] Comment on above: Performed By: #### C BC #### [facility] [address] [place] [address] Dr. Dwight Waters MONO # 0.6 103/ul Normal 0.3-0.8 [facility] Comment on above: Performed By: #### C BC #### [facility] [address] [place] [address] Dr. Dwight Waters Monocytes/100 WBC (Bld) 10.2 % Normal 1.7-12.0 [facility] Comment on above: Performed By: #### C BC #### [facility] [address] [place] [address] Dr. Dwight Waters NEUT # 2.7 103/ul Normal 1.4-6.5 [facility] Comment on above: Performed By: #### C BC #### [facility] [address] [place] [address] Dr. Dwight Waters Neutrophils/100 WBC (Bld) 47.8 % Normal 43.0-75.0 [facility] Comment on above: Performed By: #### C BC #### [facility] [address] [place] [address] Dr. Dwight Waters Platelet mean volume (Bld) [Entitic vol] 9.3 fL Critically low 9.5-13.5 [facility] Comment on above: Performed By: #### C BC #### [facility] [address] [place] [address] Dr. Dwight Waters PLT 241 103/ul Normal 150-450 [facility] Comment on above: Performed By: #### C BC #### [facility] [address] [place] [address] Dr. Dwight Waters RBC 5.62 106/ul Normal 4.70-6.10 [facility] Comment on above: Performed By: #### C BC #### [facility] [address] [place] [address] Dr. Dwight Waters WBC 5.7 103/ul Normal 4.0-11.0 [facility] Comment on above: Performed By: #### C BC #### [facility] [address] [place] [address] Dr. Dwight Waters GGTon 03-02-2023 Gamma glutamyl transferase [Catalytic activity/Vol] 25 U/L Normal 15-85 [facility] Comment on above: Performed By: #### U RTPCR #### [facility] [address] [place] [address] Dr. Dwight Waters MAGNESIUMon 03-02-2023 Magnesium [Mass/Vol] 1.6 mg/dL Critically low 1.8-2.4 [facility] Comment on above: Performed By: #### U RTPCR #### [facility] [address] [place] [address] Dr. Dwight Waters PHOSPHORUSon 03-02-2023 Phosphate [Mass/Vol] 3.6 mg/dL Normal 2.6-4.7 [facility] Comment on above: Performed By: #### U RTPCR #### [facility] [address] [place] [address] Dr. Dwight Waters PROF CHEM 8 (BAS METB)on Anion gap [Moles/Vol] 9.4 mmol/L Normal [facility] Comment on above: Performed By: #### U RTPCR #### [facility] [address] [place] [address] Dr. Dwight Waters Calcium [Mass/Vol] 9.3 mg/dL Normal 8.5-10.1 [facility] Comment on above: Performed By: #### U RTPCR #### [facility] [address] [place] [address] Dr. Dwight Waters Chloride [Moles/Vol] 108 mmol/L Critically high 98-107 [facility] Comment on above: Performed By: #### U RTPCR #### [facility] [address] [place] [address] Dr. Dwight Waters CO2 [Moles/Vol] 27.2 mmol/L Normal 21.0-32.0 [facility] Comment on above: Performed By: #### U RTPCR #### [facility] [address] [place] [address] Dr. Dwight Waters Creatinine [Mass/Vol] 1.12 mg/dL Normal 0.70-1.30 [facility] Comment on above: Performed By: #### U RTPCR #### [facility] [address] [place] [address] Dr. Dwight Waters EGFR-AF NIGERIEN >60 Normal >=60 [facility] Comment on above: Performed By: #### U RTPCR #### [facility] [address] [place] [address] Dr. Dwight Waters EGFR-NON AF NIGERIEN >60 Normal >=60 [facility] Comment on above: Performed By: #### U RTPCR #### [facility] [address] [place] [address] Dr. Dwight Waters Glucose [Mass/Vol] 113 mg/dL Critically high 74-106 [facility] Comment on above: Performed By: #### U RTPCR #### [facility] [address] [place] [address] Dr. Dwight Waters Potassium [Moles/Vol] 3.6 mmol/L Normal 3.5-5.1 [facility] Comment on above: Performed By: #### U RTPCR #### [facility] [address] [place] [address] Dr. Dwight Waters Sodium [Moles/Vol] 141 mmol/L Normal 136-145 [facility] Comment on above: Performed By: #### U RTPCR #### [facility] [address] [place] [address] Dr. Dwight Waters Urea nitrogen [Mass/Vol] 14.0 mg/dL Normal 7.0-18.0 [facility] Comment on above: Performed By: #### U RTPCR #### [facility] [address] [place] [address] Dr. Dwight Waters Urea nitrogen/Creatinine [Mass ratio] 12.5 mg/mg Normal [facility] Comment on above: Performed By: #### U RTPCR #### [facility] [address] [place] [address] Dr. Dwight Waters SGOTon 03-02-2023 AST [Catalytic activity/Vol] 20 U/L Normal 15-37 [facility] Comment on above: Performed By: #### U RTPCR #### [facility] [address] [place] [address] Dr. Dwight Waters SGPTon 03-02-2023 ALT [Catalytic activity/Vol] 30 U/L Normal 16-63 [facility] Comment on above: Performed By: #### U RTPCR #### [facility] [address] [place] [address] Dr. Dwgiht Waters URINE T PROTEIN CREAT RATIOo n 03-02-2023 Protein (U) [Mass/Vol] 10.3 mg/dL Normal <=12.0 [facility] Comment on above: Performed By: #### U RTPCR #### [facility] [address] [place] [address] Dr. Dwight Waters UR PROT CREAT RAT 0.15 Normal [facility] Comment on above: Performed By: #### U RTPCR #### [facility] [address] [place] [address] Dr. Dwight Waters URINE CREAT 68.96 mg/dL Normal 20.00-300.00 [facility] Comment on above: Performed By: #### U RTPCR #### [facility] [address] [place] [address] Dr. Dwight Waters BK VIRUS PCR QUANTon 023 BKV DNA QUANT PCR PLASMA Negative Normal Negative [facility] Comment on above: Result Comment: No B K DNA detected. . The linear range of the assay is 22 - 100,000,000 IU/mL. Performed By: #### C MP #### [facility] [address] [place] [address] Dr. Dwight Waters Log10 BKV DNA Plasma Normal [facility] Comment on above: Performed By: #### C MP #### [facility] [address] [place] [address] Dr. Dwight Waters FK506 (TACROLIMUS) WHOLE BLO ODon 12-31-2022 Tacrolimus (FK506), Blood 5.6 ng/mL Normal 2.0-20.0 [facility] Comment on above: Result Comment: Trou gh (immediately following transplant) 15.0 . Trough (steady state, 2 weeks or more after transplant): 3.0 - 8.0 . Performed by LC-MS/MS technology. Performed By: #### C MP #### [facility] [address] [place] [address] Dr. Dwight Waters ALKALINE PHOSPHAon ALP [Catalytic activity/Vol] 96 U/L Normal 46-116 [facility] Comment on above: Performed By: #### C BC #### [facility] [address] [place] [address] Dr. Dwight Waters BILIRUBIN CONJUGATED (DIRECT )on 12-29-2022 BILI, CONJUGATED 0.3 mg/dL Critically high 0.0-0.2 [facility] Comment on above: Performed By: #### C BC #### [facility] [address] [place] [address] Dr. Dwight Waters BILIRUBIN TOTALon 12-29-2022 Bilirubin [Mass/Vol] 1.1 mg/dL Critically high 0.2-1.0 [facility] Comment on above: Performed By: #### C BC #### [facility] [address] [place] [address] Dr. Dwight Waters CBC AUTO DIFFon 12-29-2022 BASO # 0.1 103/ul Normal 0.0-0.1 [facility] Comment on above: Performed By: #### C MP #### [facility] [address] [place] [address] Dr. Dwight Waters Basophils/100 WBC (Bld) 0.8 % Normal 0.2-2.0 [facility] Comment on above: Performed By: #### C MP #### [facility] [address] [place] [address] Dr. Dwight Waters EO # 0.2 103/ul Normal 0.0-0.7 [facility] Comment on above: Performed By: #### C MP #### [facility] [address] [place] [address] Dr. Dwight Waters Eosinophils/100 WBC (Bld) 3.0 % Normal 0.9-7.0 [facility] Comment on above: Performed By: #### C MP #### [facility] [address] [place] [address] Dr. Dwight Waters Erythrocyte distribution width (RBC) [Ratio] 12.9 % Normal 11.0-15.0 [facility] Comment on above: Performed By: #### C MP #### [facility] [address] [place] [address] Dr. Dwight Waters Hematocrit (Bld) [Volume fraction] 46.9 % Normal 42.0-54.0 [facility] Comment on above: Performed By: #### C MP #### [facility] [address] [place] [address] Dr. Dwight Waters Hemoglobin (Bld) [Mass/Vol] 16.1 g/dL Normal 14.0-18.0 [facility] Comment on above: Performed By: #### C MP #### [facility] [address] [place] [address] Dr. Dwight Waters IG # 0.01 10e3/ul Normal 0.00-0.03 [facility] Comment on above: Performed By: #### C MP #### [facility] [address] [place] [address] Dr. Dwight Waters IG % 0.2 % Normal 0.0-0.5 [facility] Comment on above: Performed By: #### C MP #### [facility] [address] [place] [address] Dr. Dwight Waters LYMPH # 1.8 103/ul Normal 1.2-3.8 [facility] Comment on above: Performed By: #### C MP #### [facility] [address] [place] [address] Dr. Dwight Waters Lymphocytes/100 WBC (Bld) 27.9 % Normal 20.5-60.0 [facility] Comment on above: Performed By: #### C MP #### [facility] [address] [place] [address] Dr. Dwight Waters MANUAL DIFF REQ NO Normal [facility] Comment on above: Performed By: #### C MP #### [facility] [address] [place] [address] Dr. Dwight Waters MCH (RBC) [Entitic mass] 28.5 pg Normal 25.9-34.0 [facility] Comment on above: Performed By: #### C MP #### [facility] [address] [address] [address] Dwight Waters MCHC (RBC) [Mass/Vol] 34.3 g/dL Normal 29.9-35.2 [facility] Comment on above: Performed By: #### C MP #### [facility] [address] [address] [address] Dwight Waters MCV (RBC) [Entitic vol] 83.2 fL Normal 80.0-94.0 [facility] Comment on above: Performed By: #### C MP #### [facility] [address] [address] [address] Dwight Waters MONO # 0.5 103/ul Normal 0.3-0.8 [facility] Comment on above: Performed By: #### C MP #### [facility] [address] [place] [address] Dr. Dwight Waters Monocytes/100 WBC (Bld) 8.1 % Normal 1.7-12.0 [facility] Comment on above: Performed By: #### C MP #### [facility] [address] [address] [address] Dwight Waters NEUT # 3.8 103/ul Normal 1.4-6.5 [facility] Comment on above: Performed By: #### C MP #### [facility] [address] [address] [address] Dwight Waters Neutrophils/100 WBC (Bld) 60.0 % Normal 43.0-75.0 [facility] Comment on above: Performed By: #### C MP #### [facility] [address] [address] [address] Dwight Waters Platelet mean volume (Bld) [Entitic vol] 9.2 fL Critically low 9.5-13.5 [facility] Comment on above: Performed By: #### C MP #### [facility] [address] [address] [address] Dwight Waters PLT 225 103/ul Normal 150-450 [facility] Comment on above: Performed By: #### C MP #### [facility] [address] [place] [address] Dr. Dwight Waters RBC 5.64 106/ul Normal 4.70-6.10 [facility] Comment on above: Performed By: #### C MP #### [facility] [address] [place] [address] Dr. Dwight Waters WBC 6.3 103/ul Normal 4.0-11.0 [facility] Comment on above: Performed By: #### C MP #### [facility] [address] [place] [address] Dr. Dwight Waters GGTon 12-29-2022 Gamma glutamyl transferase [Catalytic activity/Vol] 24 U/L Normal 15-85 [facility] Comment on above: Performed By: #### C MP #### [facility] [address] [place] [address] Dr. Dwight Waters LIPID PROFILEon 12-29-2022 CHOL-HDL RATIO NORM SEE BELOW Normal [facility] Comment on above: Result Comment: 3.3 - 4.4 LOW RISK 4.4 - 7.1 AVERAGE RISK 7.1 - 11.0 MODERATE RISK >11.0 HIGH RISK Performed By: #### U RTPCR #### [facility] [address] [place] [address] Dr. Dwight Waters Cholesterol [Mass/Vol] 87 mg/dL Normal <=200 [facility] Comment on above: Performed By: #### U RTPCR #### [facility] [address] [place] [address] Dr. Dwight Waters Cholesterol in HDL [Mass/Vol] 44 mg/dL Normal 40-60 [facility] Comment on above: Performed By: #### U RTPCR #### [facility] [address] [place] [address] Dr. Dwight Waters Cholesterol in LDL [Mass/Vol] 33.0 mg/dL Normal [facility] Comment on above: Performed By: #### U RTPCR #### [facility] [address] [place] [address] Dr. Dwight Waters Cholesterol.total/Ch olesterol in HDL [Mass ratio] 2.0 {ratio} Normal [facility] Comment on above: Performed By: #### U RTPCR #### [facility] [address] [address] [address] Dwight Waters HDL NORMAL > or = 60 mg/dl - LO W CARDIOVASCULAR RISK <40 mg/dl - HIGH CARDIOVASCULAR RISK Normal [facility] Comment on above: Performed By: #### U RTPCR #### [facility] [address] [address] [address] Dwight Waters LDL CALC NORMAL SEE BELOW Normal [facility] Comment on above: Result Comment: <100 mg/dl OPTIMAL 100 - 129 mg/dl NEAR OR ABOVE OPTIMAL 130 - 159 mg/dl BORDERLINE HIGH 160 - 189 mg/dl HIGH >190 mg/dl VERY HIGH Performed By: #### U RTPCR #### [facility] [address] [place] [address] Dr. Dwight Waters Triglyceride [Mass/Vol] 50 mg/dL Normal <=150 [facility] Comment on above: Performed By: #### U RTPCR #### [facility] [address] [address] [address] Dwight Waters VLDL CALC 10.0 mg/dL Normal [facility] Comment on above: Performed By: #### U RTPCR #### [facility] [address] [place] [address] Dr. Dwight Waters MAGNESIUMon 12-29-2022 Magnesium [Mass/Vol] 1.6 mg/dL Critically low 1.8-2.4 [facility] Comment on above: Performed By: #### C BC #### [facility] [address] [place] [address] Dr. Dwight Waters RENAL FUNCTION PANELon 12-29 Albumin [Mass/Vol] 3.9 g/dL Normal 3.4-5.0 [facility] Comment on above: Performed By: #### C BC #### [facility] [address] [place] [address] Dr. Dwight Waters Calcium [Mass/Vol] 9.2 mg/dL Normal 8.5-10.1 [facility] Comment on above: Performed By: #### C BC #### [facility] [address] [address] [address] Dwight Waters Chloride [Moles/Vol] 109 mmol/L Critically high 98-107 [facility] Comment on above: Performed By: #### C BC #### [facility] [address] [address] [address] Dwight Waters CO2 [Moles/Vol] 27.0 mmol/L Normal 21.0-32.0 [facility] Comment on above: Performed By: #### C BC #### [facility] [address] [address] [address] Dwight Waters Creatinine [Mass/Vol] 1.02 mg/dL Normal 0.70-1.30 [facility] Comment on above: Performed By: #### C BC #### [facility] [address] [place] [address] Dr. Dwight Waters EGFR-AF NIGERIEN >60 Normal >=60 [facility] Comment on above: Performed By: #### C BC #### [facility] [address] [place] [address] Dr. Dwight Waters EGFR-NON AF NIGERIEN >60 Normal >=60 [facility] Comment on above: Performed By: #### C BC #### [facility] [address] [place] [address] Dr. Dwight Waters Glucose [Mass/Vol] 117 mg/dL Critically high 74-106 [facility] Comment on above: Performed By: #### C BC #### [facility] [address] [place] [address] Dr. Dwight Waters Phosphate [Mass/Vol] 3.2 mg/dL Normal 2.6-4.7 [facility] Comment on above: Performed By: #### C BC #### [facility] [address] [place] [address] Dr. Dwight Waters Potassium [Moles/Vol] 4.1 mmol/L Normal 3.5-5.1 [facility] Comment on above: Performed By: #### C BC #### [facility] [address] [place] [address] Dr. Dwight Waters Sodium [Moles/Vol] 144 mmol/L Normal 136-145 [facility] Comment on above: Performed By: #### C BC #### [facility] [address] [place] [address] Dr. Dwight Waters Urea nitrogen [Mass/Vol] 13.0 mg/dL Normal 7.0-18.0 [facility] Comment on above: Performed By: #### C BC #### [facility] [address] [place] [address] Dr. Dwight Waters SGOTon 12-29-2022 AST [Catalytic activity/Vol] 21 U/L Normal 15-37 [facility] Comment on above: Performed By: #### C BC #### [facility] [address] [place] [address] Dr. Dwight Waters SGPTon 12-29-2022 ALT [Catalytic activity/Vol] 32 U/L Normal 16-63 [facility] Comment on above: Performed By: #### C BC #### [facility] [address] [place] [address] Dr. Dwight Waters URINE T PROTEIN CREAT RATIOo n 12-29-2022 Protein (U) [Mass/Vol] 14.3 mg/dL Critically high <=12.0 [facility] Comment on above: Performed By: #### U RTPCR #### [facility] [address] [place] [address] Dr. Dwight Waters UR PROT CREAT RAT 0.17 Normal [facility] Comment on above: Performed By: #### U RTPCR #### [facility] [address] [place] [address] Dr. Dwight Waters URINE CREAT 86.58 mg/dL Normal 20.00-300.00 [facility] Comment on above: Performed By: #### U RTPCR #### [facility] [address] [place] [address] Dr. Dwight Waters FK506 (TACROLIMUS) WHOLE BLO ODon 11-06-2022 Tacrolimus (FK506), Blood 4.9 ng/mL Normal 2.0-20.0 [facility] Comment on above: Result Comment: Trou gh (immediately following transplant) 15.0 . Trough (steady state, 2 weeks or more after transplant): 3.0 - 8.0 . Performed by LC-MS/MS technology. Performed By: #### U RTPCR #### [facility] [address] [place] [address] Dr. Dwight Waters ALKALINE PHOSPHAon ALP [Catalytic activity/Vol] 86 U/L Normal 46-116 [facility] Comment on above: Performed By: #### U RTPCR #### [facility] [address] [place] [address] Dr. Dwight Waters BILIRUBIN CONJUGATED (DIRECT )on 11-04-2022 BILI, CONJUGATED 0.2 mg/dL Normal 0.0-0.2 [facility] Comment on above: Performed By: #### U RTPCR #### [facility] [address] [place] [address] Dr. Dwight Waters BILIRUBIN TOTALon 11-04-2022 Bilirubin [Mass/Vol] 0.8 mg/dL Normal 0.2-1.0 [facility] Comment on above: Performed By: #### U RTPCR #### [facility] [address] [place] [address] Dr. Dwight Waters CBC AUTO DIFFon 11-04-2022 BASO # 0.1 103/ul Normal 0.0-0.1 [facility] Comment on above: Performed By: #### U RTPCR #### [facility] [address] [place] [address] Dr. Dwight Waters Basophils/100 WBC (Bld) 0.9 % Normal 0.2-2.0 [facility] Comment on above: Performed By: #### U RTPCR #### [facility] [address] [place] [address] Dr. Dwight Waters EO # 0.2 103/ul Normal 0.0-0.7 [facility] Comment on above: Performed By: #### U RTPCR #### [facility] [address] [place] [address] Dr. Dwight Waters Eosinophils/100 WBC (Bld) 3.7 % Normal 0.9-7.0 [facility] Comment on above: Performed By: #### U RTPCR #### [facility] [address] [place] [address] Dr. Dwight Waters Erythrocyte distribution width (RBC) [Ratio] 12.9 % Normal 11.0-15.0 [facility] Comment on above: Performed By: #### U RTPCR #### [facility] [address] [place] [address] Dr. Dwight Waters Hematocrit (Bld) [Volume fraction] 48.3 % Normal 42.0-54.0 [facility] Comment on above: Performed By: #### U RTPCR #### [facility] [address] [place] [address] Dr. Dwight Waters Hemoglobin (Bld) [Mass/Vol] 15.6 g/dL Normal 14.0-18.0 [facility] Comment on above: Performed By: #### U RTPCR #### [facility] [address] [place] [address] Dr. Dwight Waters IG # 0.01 10e3/ul Normal 0.00-0.03 [facility] Comment on above: Performed By: #### U RTPCR #### [facility] [address] [place] [address] Dr. Dwight Waters IG % 0.2 % Normal 0.0-0.5 [facility] Comment on above: Performed By: #### U RTPCR #### [facility] [address] [place] [address] Dr. Dwight Waters LYMPH # 1.9 103/ul Normal 1.2-3.8 [facility] Comment on above: Performed By: #### U RTPCR #### [facility] [address] [place] [address] Dr. Dwight Waters Lymphocytes/100 WBC (Bld) 33.0 % Normal 20.5-60.0 [facility] Comment on above: Performed By: #### U RTPCR #### [facility] [address] [place] [address] Dr. Dwight Waters MANUAL DIFF REQ NO Normal [facility] Comment on above: Performed By: #### U RTPCR #### [facility] [address] [place] [address] Dr. Dwight Waters MCH (RBC) [Entitic mass] 27.6 pg Normal 25.9-34.0 [facility] Comment on above: Performed By: #### U RTPCR #### [facility] [address] [place] [address] Dr. Dwight Waters MCHC (RBC) [Mass/Vol] 32.3 g/dL Normal 29.9-35.2 [facility] Comment on above: Performed By: #### U RTPCR #### [facility] [address] [place] [address] Dr. Dwight Waters MCV (RBC) [Entitic vol] 85.5 fL Normal 80.0-94.0 [facility] Comment on above: Performed By: #### U RTPCR #### [facility] [address] [place] [address] Dr. Dwight Waters MONO # 0.5 103/ul Normal 0.3-0.8 [facility] Comment on above: Performed By: #### U RTPCR #### [facility] [address] [place] [address] Dr. Dwight Waters Monocytes/100 WBC (Bld) 8.8 % Normal 1.7-12.0 [facility] Comment on above: Performed By: #### U RTPCR #### [facility] [address] [place] [address] Dr. Dwight Waters NEUT # 3.1 103/ul Normal 1.4-6.5 [facility] Comment on above: Performed By: #### U RTPCR #### [facility] [address] [place] [address] Dr. Dwight Waters Neutrophils/100 WBC (Bld) 53.4 % Normal 43.0-75.0 [facility] Comment on above: Performed By: #### U RTPCR #### [facility] [address] [place] [address] Dr. Dwight Waters Platelet mean volume (Bld) [Entitic vol] 9.2 fL Critically low 9.5-13.5 [facility] Comment on above: Performed By: #### U RTPCR #### [facility] [address] [place] [address] Dr. Dwight Waters PLT 255 103/ul Normal 150-450 [facility] Comment on above: Performed By: #### U RTPCR #### [facility] [address] [place] [address] Dr. Dwight Waters RBC 5.65 106/ul Normal 4.70-6.10 [facility] Comment on above: Performed By: #### U RTPCR #### [facility] [address] [place] [address] Dr. Dwight Waters WBC 5.7 103/ul Normal 4.0-11.0 [facility] Comment on above: Performed By: #### U RTPCR #### [facility] [address] [place] [address] Dr. Dwight Waters GGTon 11-04-2022 Gamma glutamyl transferase [Catalytic activity/Vol] 22 U/L Normal 15-85 [facility] Comment on above: Performed By: #### U RTPCR #### [facility] [address] [place] [address] Dr. Dwight Waters MAGNESIUMon 11-04-2022 Magnesium [Mass/Vol] 1.8 mg/dL Normal 1.8-2.4 [facility] Comment on above: Performed By: #### U RTPCR #### [facility] [address] [place] [address] Dr. Dwight Waters RENAL FUNCTION PANELon 11-04 Albumin [Mass/Vol] 3.8 g/dL Normal 3.4-5.0 [facility] Comment on above: Performed By: #### U RTPCR #### [facility] [address] [place] [address] Dr. Dwight Waters Calcium [Mass/Vol] 9.3 mg/dL Normal 8.5-10.1 [facility] Comment on above: Performed By: #### U RTPCR #### [facility] [address] [address] [address] Dwight Waters Chloride [Moles/Vol] 107 mmol/L Normal 98-107 [facility] Comment on above: Performed By: #### U RTPCR #### [facility] [address] [place] [address] Dr. Dwight Waters CO2 [Moles/Vol] 29.2 mmol/L Normal 21.0-32.0 [facility] Comment on above: Performed By: #### U RTPCR #### [facility] [address] [place] [address] Dr. Dwight Waters Creatinine [Mass/Vol] 1.07 mg/dL Normal 0.70-1.30 [facility] Comment on above: Performed By: #### U RTPCR #### [facility] [address] [place] [address] Dr. Dwight Waters EGFR-AF NIGERIEN >60 Normal >=60 [facility] Comment on above: Performed By: #### U RTPCR #### [facility] [address] [place] [address] Dr. Dwight Waters EGFR-NON AF NIGERIEN >60 Normal >=60 [facility] Comment on above: Performed By: #### U RTPCR #### [facility] [address] [place] [address] Dr. Dwight Waters Glucose [Mass/Vol] 106 mg/dL Normal 74-106 [facility] Comment on above: Performed By: #### U RTPCR #### [facility] [address] [place] [address] Dr. Dwight Waters Phosphate [Mass/Vol] 2.8 mg/dL Normal 2.6-4.7 [facility] Comment on above: Performed By: #### U RTPCR #### [facility] [address] [place] [address] Dr. Dwight Waters Potassium [Moles/Vol] 4.1 mmol/L Normal 3.5-5.1 [facility] Comment on above: Performed By: #### U RTPCR #### [facility] [address] [place] [address] Dr. Dwight Waters Sodium [Moles/Vol] 143 mmol/L Normal 136-145 [facility] Comment on above: Performed By: #### U RTPCR #### [facility] [address] [place] [address] Dr. Dwight Waters Urea nitrogen [Mass/Vol] 12.0 mg/dL Normal 7.0-18.0 [facility] Comment on above: Performed By: #### U RTPCR #### [facility] [address] [place] [address] Dr. Dwight Waters SGOTon 11-04-2022 AST [Catalytic activity/Vol] 19 U/L Normal 15-37 [facility] Comment on above: Performed By: #### U RTPCR #### [facility] [address] [place] [address] Dr. Dwight Waters SGPTon 11-04-2022 ALT [Catalytic activity/Vol] 28 U/L Normal 16-63 [facility] Comment on above: Performed By: #### U RTPCR #### [facility] [address] [place] [address] Dr. Dwight Waters URINE T PROTEIN CREAT RATIOo n 11-04-2022 Protein (U) [Mass/Vol] 10.7 mg/dL Normal <=12.0 [facility] Comment on above: Performed By: #### U RTPCR #### [facility] [address] [place] [address] Dr. Dwight Waters UR PROT CREAT RAT 0.13 Normal [facility] Comment on above: Performed By: #### U RTPCR #### [facility] [address] [place] [address] Dr. Dwight Waters URINE CREAT 84.50 mg/dL Normal 20.00-300.00 [facility] Comment on above: Performed By: #### U RTPCR #### [facility] [address] [place] [address] Dr. Dwight Waters FK506 (TACROLIMUS) WHOLE BLO ODon 09-18-2022 Tacrolimus (FK506), Blood 4.6 ng/mL Normal 2.0-20.0 [facility] Comment on above: Result Comment: Trou gh (immediately following transplant) 15.0 . Trough (steady state, 2 weeks or more after transplant): 3.0 - 8.0 . Performed by LC-MS/MS technology. Performed By: #### U RTPCR #### [facility] [address] [place] [address] Dr. Dwight Waters BK VIRUS PCR QUANTon 022 BKV DNA QUANT PCR PLASMA Negative Normal Negative [facility] Comment on above: Result Comment: No B K DNA detected. . The linear range of the assay is 22 - 100,000,000 IU/mL. Performed By: #### U RTPCR #### [facility] [address] [place] [address] Dr. Dwight Waters Log10 BKV DNA Plasma Normal [facility] Comment on above: Performed By: #### U RTPCR #### [facility] [address] [place] [address] Dr. Dwight Waters ALKALINE PHOSPHAon ALP [Catalytic activity/Vol] 92 U/L Normal 46-116 [facility] Comment on above: Performed By: #### U RTPCR #### [facility] [address] [place] [address] Dr. Dwight Waters BILIRUBIN CONJUGATED (DIRECT )on 09-15-2022 BILI, CONJUGATED 0.3 mg/dL Critically high 0.0-0.2 [facility] Comment on above: Performed By: #### U RTPCR #### [facility] [address] [place] [address] Dr. Dwight Waters BILIRUBIN TOTALon 09-15-2022 Bilirubin [Mass/Vol] 1.1 mg/dL Critically high 0.2-1.0 [facility] Comment on above: Performed By: #### U RTPCR #### [facility] [address] [place] [address] Dr. Dwight Waters CBC AUTO DIFFon 09-15-2022 BASO # 0.1 103/ul Normal 0.0-0.1 [facility] Comment on above: Performed By: #### C BC #### [facility] [address] [place] [address] Dr. Dwight Waters Basophils/100 WBC (Bld) 0.8 % Normal 0.2-2.0 [facility] Comment on above: Performed By: #### C BC #### [facility] [address] [place] [address] Dr. Dwight Waters EO # 0.2 103/ul Normal 0.0-0.7 [facility] Comment on above: Performed By: #### C BC #### [facility] [address] [place] [address] Dr. Dwight Waters Eosinophils/100 WBC (Bld) 3.5 % Normal 0.9-7.0 [facility] Comment on above: Performed By: #### C BC #### [facility] [address] [place] [address] Dr. Dwight Waters Erythrocyte distribution width (RBC) [Ratio] 13.0 % Normal 11.0-15.0 [facility] Comment on above: Performed By: #### C BC #### [facility] [address] [place] [address] Dr. Dwight Waters Hematocrit (Bld) [Volume fraction] 50.0 % Normal 42.0-54.0 [facility] Comment on above: Performed By: #### C BC #### [facility] [address] [place] [address] Dr. Dwight Waters Hemoglobin (Bld) [Mass/Vol] 16.0 g/dL Normal 14.0-18.0 [facility] Comment on above: Performed By: #### C BC #### [facility] [address] [place] [address] Dr. Dwight Waters IG # 0.02 10e3/ul Normal 0.00-0.03 [facility] Comment on above: Performed By: #### C BC #### [facility] [address] [place] [address] Dr. Dwight Waters IG % 0.3 % Normal 0.0-0.5 [facility] Comment on above: Performed By: #### C BC #### [facility] [address] [place] [address] Dr. Dwight Waters LYMPH # 1.8 103/ul Normal 1.2-3.8 [facility] Comment on above: Performed By: #### C BC #### [facility] [address] [place] [address] Dr. Dwight Waters Lymphocytes/100 WBC (Bld) 26.5 % Normal 20.5-60.0 [facility] Comment on above: Performed By: #### C BC #### [facility] [address] [place] [address] Dr. Dwight Waters MANUAL DIFF REQ NO Normal [facility] Comment on above: Performed By: #### C BC #### [facility] [address] [place] [address] Dr. Dwight Waters MCH (RBC) [Entitic mass] 28.1 pg Normal 25.9-34.0 [facility] Comment on above: Performed By: #### C BC #### [facility] [address] [place] [address] Dr. Dwight Waters MCHC (RBC) [Mass/Vol] 32.0 g/dL Normal 29.9-35.2 [facility] Comment on above: Performed By: #### C BC #### [facility] [address] [place] [address] Dr. Dwight Waters MCV (RBC) [Entitic vol] 87.9 fL Normal 80.0-94.0 [facility] Comment on above: Performed By: #### C BC #### [facility] [address] [place] [address] Dr. Dwight Waters MONO # 0.5 103/ul Normal 0.3-0.8 [facility] Comment on above: Performed By: #### C BC #### [facility] [address] [place] [address] Dr. Dwight Waters Monocytes/100 WBC (Bld) 8.1 % Normal 1.7-12.0 [facility] Comment on above: Performed By: #### C BC #### [facility] [address] [place] [address] Dr. Dwight Waters NEUT # 4.0 103/ul Normal 1.4-6.5 [facility] Comment on above: Performed By: #### C BC #### [facility] [address] [address] [address] Dwight Waters Neutrophils/100 WBC (Bld) 60.8 % Normal 43.0-75.0 [facility] Comment on above: Performed By: #### C BC #### [facility] [address] [address] [address] Dwight Waters Platelet mean volume (Bld) [Entitic vol] 9.4 fL Critically low 9.5-13.5 [facility] Comment on above: Performed By: #### C BC #### [facility] [address] [place] [address] Dr. Dwight Waters PLT 265 103/ul Normal 150-450 [facility] Comment on above: Performed By: #### C BC #### [facility] [address] [place] [address] Dr. Dwight Waters RBC 5.69 106/ul Normal 4.70-6.10 [facility] Comment on above: Performed By: #### C BC #### [facility] [address] [place] [address] Dr. Dwight Waters WBC 6.6 103/ul Normal 4.0-11.0 [facility] Comment on above: Performed By: #### C BC #### [facility] [address] [place] [address] Dr. Dwight Waters GGTon 09-15-2022 Gamma glutamyl transferase [Catalytic activity/Vol] 23 U/L Normal 15-85 [facility] Comment on above: Performed By: #### U RTPCR #### [facility] [address] [place] [address] Dr. Dwight Waters MAGNESIUMon 09-15-2022 Magnesium [Mass/Vol] 1.8 mg/dL Normal 1.8-2.4 [facility] Comment on above: Performed By: #### U RTPCR #### [facility] [address] [place] [address] Dr. Dwight Waters RENAL FUNCTION PANELon 09-15 Albumin [Mass/Vol] 4.1 g/dL Normal 3.4-5.0 [facility] Comment on above: Performed By: #### C BC #### [facility] [address] [place] [address] Dr. Dwight Waters Calcium [Mass/Vol] 9.3 mg/dL Normal 8.5-10.1 [facility] Comment on above: Performed By: #### C BC #### [facility] [address] [place] [address] Dr. Dwight Waters Chloride [Moles/Vol] 107 mmol/L Normal 98-107 [facility] Comment on above: Performed By: #### C BC #### [facility] [address] [place] [address] Dr. Dwight Waters CO2 [Moles/Vol] 25.6 mmol/L Normal 21.0-32.0 [facility] Comment on above: Performed By: #### C BC #### [facility] [address] [place] [address] Dr. Dwight Waters Creatinine [Mass/Vol] 1.01 mg/dL Normal 0.70-1.30 [facility] Comment on above: Performed By: #### C BC #### [facility] [address] [place] [address] Dr. Dwight Waters EGFR-AF NIGERIEN >60 Normal >=60 [facility] Comment on above: Performed By: #### C BC #### [facility] [address] [place] [address] Dr. Dwight Waters EGFR-NON AF NIGERIEN >60 Normal >=60 [facility] Comment on above: Performed By: #### C BC #### [facility] [address] [place] [address] Dr. Dwight Waters Glucose [Mass/Vol] 119 mg/dL Critically high 74-106 [facility] Comment on above: Performed By: #### C BC #### [facility] [address] [place] [address] Dr. Dwight Waters Phosphate [Mass/Vol] 2.8 mg/dL Normal 2.6-4.7 [facility] Comment on above: Performed By: #### C BC #### [facility] [address] [address] [address] Dwight Waters Potassium [Moles/Vol] 4.0 mmol/L Normal 3.5-5.1 [facility] Comment on above: Performed By: #### C BC #### [facility] [address] [place] [address] Dr. Dwight Waters Sodium [Moles/Vol] 141 mmol/L Normal 136-145 [facility] Comment on above: Performed By: #### C BC #### [facility] [address] [place] [address] Dr. Dwight Waters Urea nitrogen [Mass/Vol] 15.0 mg/dL Normal 7.0-18.0 [facility] Comment on above: Performed By: #### C BC #### [facility] [address] [place] [address] Dr. Dwight OLVERAOToamanda 09-15-2022 AST [Catalytic activity/Vol] 18 U/L Normal 15-37 [facility] Comment on above: Performed By: #### U RTPCR #### [facility] [address] [place] [address] Dr. Dwight OLVERAPTon 09-15-2022 ALT [Catalytic activity/Vol] 32 U/L Normal 16-63 [facility] Comment on above: Performed By: #### C BC #### [facility] [address] [place] [address] Dr. Dwight Waters URINE T PROTEIN CREAT RATIOo n 09-15-2022 Protein (U) [Mass/Vol] 14.1 mg/dL Critically high <=12.0 [facility] Comment on above: Performed By: #### U RTPCR #### [facility] [address] [place] [address] Dr. Dwight Waters UR PROT CREAT RAT 0.14 Normal [facility] Comment on above: Performed By: #### U RTPCR #### [facility] [address] [place] [address] Dr. Dwight Waters URINE CREAT 98.89 mg/dL Normal 20.00-300.00 [facility] Comment on above: Performed By: #### U RTPCR #### [facility] [address] [address] [address] Dwight Waters US CAROTID ART BILon [...] MÓNICA JIMENEZ Date: 2022-08-28 13:20 Normal [facility] FK506 (TACROLIMUS) WHOLE BLO ODon 08-17-2022 Tacrolimus (FK506), Blood 9.9 ng/mL Normal 2.0-20.0 [facility] Comment on above: Result Comment: Trou gh (immediately following transplant) 15.0 . Trough (steady state, 2 weeks or more after transplant): 3.0 - 8.0 . Performed by LC-MS/MS technology. Performed By: #### F [id number] #### [facility] [address] [place] [address] Dr. Dwight Waters BK VIRUS PCR QUANTon 022 BKV DNA QUANT PCR PLASMA Negative Normal Negative [facility] Comment on above: Result Comment: No B K DNA detected. . The linear range of the assay is 22 - 100,000,000 IU/mL. Performed By: #### U RTPCR #### [facility] [address] [place] [address] Dr. Dwight Waters Log10 BKV DNA Plasma Normal [facility] Comment on above: Performed By: #### U RTPCR #### [facility] [address] [place] [address] Dr. Dwight Waters ALBUMINon 08-14-2022 Albumin [Mass/Vol] 4.2 g/dL Normal 3.4-5.0 [facility] Comment on above: Performed By: #### F [id number] #### [facility] [address] [place] [address] Dr. Dwight Waters ALKALINE PHOSPHAon ALP [Catalytic activity/Vol] 92 U/L Normal 46-116 [facility] Comment on above: Performed By: #### C BC #### [facility] [address] [place] [address] Dr. Dwight Waters BILIRUBIN CONJUGATED (DIRECT )on 08-14-2022 BILI, CONJUGATED 0.3 mg/dL Critically high 0.0-0.2 [facility] Comment on above: Performed By: #### F [id number] #### [facility] [address] [place] [address] Dr. Dwight Waters BILIRUBIN TOTALon 08-14-2022 Bilirubin [Mass/Vol] 1.5 mg/dL Critically high 0.2-1.0 [facility] Comment on above: Performed By: #### F [id number] #### [facility] [address] [place] [address] Dr. Dwight Wtaers BUNon 08-14-2022 Urea nitrogen [Mass/Vol] 11.0 mg/dL Normal 7.0-18.0 [facility] Comment on above: Performed By: #### C BC #### [facility] [address] [place] [address] Dr. Dwight Waters CALCIUMon 08-14-2022 Calcium [Mass/Vol] 9.4 mg/dL Normal 8.5-10.1 [facility] Comment on above: Performed By: #### F [id number] #### [facility] [address] [place] [address] Dr. Dwight Waters CBC AUTO DIFFon 08-14-2022 BASO # 0.0 103/ul Normal 0.0-0.1 [facility] Comment on above: Performed By: #### C MP #### [facility] [address] [place] [address] Dr. Dwight Waters Basophils/100 WBC (Bld) 0.5 % Normal 0.2-2.0 [facility] Comment on above: Performed By: #### C MP #### [facility] [address] [place] [address] Dr. Dwight Waters EO # 0.2 103/ul Normal 0.0-0.7 [facility] Comment on above: Performed By: #### C MP #### [facility] [address] [place] [address] Dr. Dwight Waters Eosinophils/100 WBC (Bld) 2.6 % Normal 0.9-7.0 [facility] Comment on above: Performed By: #### C MP #### [facility] [address] [place] [address] Dr. Dwight Waters Erythrocyte distribution width (RBC) [Ratio] 13.1 % Normal 11.0-15.0 [facility] Comment on above: Performed By: #### C MP #### [facility] [address] [place] [address] Dr. Dwight Waters Hematocrit (Bld) [Volume fraction] 47.0 % Normal 42.0-54.0 [facility] Comment on above: Performed By: #### C MP #### [facility] [address] [place] [address] Dr. Dwight Waters Hemoglobin (Bld) [Mass/Vol] 15.3 g/dL Normal 14.0-18.0 [facility] Comment on above: Performed By: #### C MP #### [facility] [address] [place] [address] Dr. Dwight Waters IG # 0.01 10e3/ul Normal 0.00-0.03 [facility] Comment on above: Performed By: #### C MP #### [facility] [address] [place] [address] Dr. Dwight Waters IG % 0.1 % Normal 0.0-0.5 [facility] Comment on above: Performed By: #### C MP #### [facility] [address] [place] [address] Dr. Dwight Waters LYMPH # 2.3 103/ul Normal 1.2-3.8 [facility] Comment on above: Performed By: #### C MP #### [facility] [address] [place] [address] Dr. Dwight Waters Lymphocytes/100 WBC (Bld) 29.8 % Normal 20.5-60.0 [facility] Comment on above: Performed By: #### C MP #### [facility] [address] [place] [address] Dr. Dwight Waters MANUAL DIFF REQ NO Normal [facility] Comment on above: Performed By: #### C MP #### [facility] [address] [place] [address] Dr. Dwight Waters MCH (RBC) [Entitic mass] 28.2 pg Normal 25.9-34.0 [facility] Comment on above: Performed By: #### C MP #### [facility] [address] [place] [address] Dr. Dwight Waters MCHC (RBC) [Mass/Vol] 32.6 g/dL Normal 29.9-35.2 [facility] Comment on above: Performed By: #### C MP #### [facility] [address] [place] [address] Dr. Dwight Waters MCV (RBC) [Entitic vol] 86.7 fL Normal 80.0-94.0 [facility] Comment on above: Performed By: #### C MP #### [facility] [address] [place] [address] Dr. Dwight Waters MONO # 0.7 103/ul Normal 0.3-0.8 [facility] Comment on above: Performed By: #### C MP #### [facility] [address] [place] [address] Dr. Dwight Waters Monocytes/100 WBC (Bld) 8.5 % Normal 1.7-12.0 [facility] Comment on above: Performed By: #### C MP #### [facility] [address] [place] [address] Dr. Dwight Waters NEUT # 4.5 103/ul Normal 1.4-6.5 [facility] Comment on above: Performed By: #### C MP #### [facility] [address] [place] [address] Dr. Dwight Waters Neutrophils/100 WBC (Bld) 58.5 % Normal 43.0-75.0 [facility] Comment on above: Performed By: #### C MP #### [facility] [address] [place] [address] Dr. Dwight Waters Platelet mean volume (Bld) [Entitic vol] 9.7 fL Normal 9.5-13.5 [facility] Comment on above: Performed By: #### C MP #### [facility] [address] [place] [address] Dr. Dwight Waters PLT 266 103/ul Normal 150-450 [facility] Comment on above: Performed By: #### C MP #### [facility] [address] [place] [address] Dr. Dwight Waters RBC 5.42 106/ul Normal 4.70-6.10 [facility] Comment on above: Performed By: #### C MP #### [facility] [address] [place] [address] Dr. Dwight Waters WBC 7.6 103/ul Normal 4.0-11.0 [facility] Comment on above: Performed By: #### C MP #### [facility] [address] [place] [address] Dr. Dwight Waters CHLORIDEon 08-14-2022 Chloride [Moles/Vol] 104 mmol/L Normal 98-107 [facility] Comment on above: Performed By: #### C BC #### [facility] [address] [place] [address] Dr. Dwight Waters CO2on 08-14-2022 CO2 [Moles/Vol] 27.9 mmol/L Normal 21.0-32.0 [facility] Comment on above: Performed By: #### C BC #### [facility] [address] [place] [address] Dr. Dwight Waters CREATININEon 08-14-2022 Creatinine [Mass/Vol] 1.08 mg/dL Normal 0.70-1.30 [facility] Comment on above: Performed By: #### C BC #### [facility] [address] [place] [address] Dr. Dwight Waters EGFR-AF NIGERIEN >60 Normal >=60 [facility] Comment on above: Performed By: #### C BC #### [facility] [address] [place] [address] Dr. Dwight Waters EGFR-NON AF NIGERIEN >60 Normal >=60 [facility] Comment on above: Performed By: #### C BC #### [facility] [address] [place] [address] Dr. Dwight Waters GGTon 08-14-2022 Gamma glutamyl transferase [Catalytic activity/Vol] 24 U/L Normal 15-85 [facility] Comment on above: Performed By: #### F [id number] #### [facility] [address] [place] [address] Dr. Dwight Waters GLUCOSE BLOODon 08-14-2022 Glucose [Mass/Vol] 111 mg/dL Critically high 74-106 [facility] Comment on above: Performed By: #### C BC #### [facility] [address] [place] [address] Dr. Dwight Waters MAGNESIUMon 08-14-2022 Magnesium [Mass/Vol] 1.4 mg/dL Critically low 1.8-2.4 [facility] Comment on above: Performed By: #### C BC #### [facility] [address] [place] [address] Dr. Dwight Waters NAon 08-14-2022 Sodium [Moles/Vol] 140 mmol/L Normal 136-145 [facility] Comment on above: Performed By: #### F [id number] #### [facility] [address] [place] [address] Dr. Dwight Waters PHOSPHORUSon 08-14-2022 Phosphate [Mass/Vol] 3.1 mg/dL Normal 2.6-4.7 [facility] Comment on above: Performed By: #### C BC #### [facility] [address] [place] [address] Dr. Dwight Waters POTASSIUMon 08-14-2022 Potassium [Moles/Vol] 3.5 mmol/L Normal 3.5-5.1 [facility] Comment on above: Performed By: #### C BC #### [facility] [address] [place] [address] Dr. Dwight OLVERAOTon 08-14-2022 AST [Catalytic activity/Vol] 17 U/L Normal 15-37 [facility] Comment on above: Performed By: #### F [id number] #### [facility] [address] [place] [address] Dr. Dwight Waters SGPTon 08-14-2022 ALT [Catalytic activity/Vol] 22 U/L Normal 16-63 [facility] Comment on above: Performed By: #### F [id number] #### [facility] [address] [place] [address] Dr. Dwight Waters URINE T PROTEIN CREAT RATIOo n 08-14-2022 Protein (U) [Mass/Vol] 10.7 mg/dL Normal <=12.0 [facility] Comment on above: Performed By: #### F [id number] #### [facility] [address] [place] [address] Dr. Dwight Waters UR PROT CREAT RAT 0.10 Normal [facility] Comment on above: Performed By: #### F [id number] #### [facility] [address] [place] [address] Dr. Dwight Waters URINE CREAT 104.28 mg/dL Normal 20.00-300.00 [facility] Comment on above: Performed By: #### F [id number] #### [facility] [address] [place] [address] Dr. Dwight Waters NEPHROSTOMY TUBE REMOVALon 0 [...] Assisting physician present for entire procedure: yes [facility] Radiology Study observation (narrative) [facility] FK506 (TACROLIMUS) WHOLE BLO ODon 07-06-2022 Tacrolimus (FK506), Blood 9.5 ng/mL Normal 2.0-20.0 [facility] Comment on above: Result Comment: Trou gh (immediately following transplant) 15.0 . Trough (steady state, 2 weeks or more after transplant): 3.0 - 8.0 . Performed by LC-MS/MS technology. Performed By: #### C MP #### [facility] [address] [place] [address] Dr. Dwight Waters ALBUMINon 07-03-2022 Albumin [Mass/Vol] 3.7 g/dL Normal 3.4-5.0 [facility] Comment on above: Performed By: #### U RTPCR #### [facility] [address] [place] [address] Dr. Dwight Waters ALKALINE PHOSPHAon ALP [Catalytic activity/Vol] 76 U/L Normal 46-116 [facility] Comment on above: Performed By: #### U RTPCR #### [facility] [address] [place] [address] Dr. Dwight Waters BILIRUBIN CONJUGATED (DIRECT )on 07-03-2022 BILI, CONJUGATED 0.3 mg/dL Critically high 0.0-0.2 [facility] Comment on above: Performed By: #### C BC #### [facility] [address] [place] [address] Dr. Dwight Waters BILIRUBIN TOTALon 07-03-2022 Bilirubin [Mass/Vol] 1.4 mg/dL Critically high 0.2-1.0 [facility] Comment on above: Performed By: #### C BC #### [facility] [address] [place] [address] Dr. Dwight Waters BUNon 07-03-2022 Urea nitrogen [Mass/Vol] 15.0 mg/dL Normal 7.0-18.0 [facility] Comment on above: Performed By: #### C BC #### [facility] [address] [place] [address] Dr. Dwight Waters CALCIUMon 07-03-2022 Calcium [Mass/Vol] 9.4 mg/dL Normal 8.5-10.1 [facility] Comment on above: Performed By: #### U RTPCR #### [facility] [address] [place] [address] Dr. Dwight Waters CBC AUTO DIFFon 07-03-2022 BASO # 0.0 103/ul Normal 0.0-0.1 [facility] Comment on above: Performed By: #### U RTPCR #### [facility] [address] [place] [address] Dr. Dwight Waters Basophils/100 WBC (Bld) 0.6 % Normal 0.2-2.0 [facility] Comment on above: Performed By: #### U RTPCR #### [facility] [address] [place] [address] Dr. Dwight Waters EO # 0.2 103/ul Normal 0.0-0.7 [facility] Comment on above: Performed By: #### U RTPCR #### [facility] [address] [place] [address] Dr. Dwight Waters Eosinophils/100 WBC (Bld) 3.5 % Normal 0.9-7.0 [facility] Comment on above: Performed By: #### U RTPCR #### [facility] [address] [place] [address] Dr. Dwight Waters Erythrocyte distribution width (RBC) [Ratio] 12.9 % Normal 11.0-15.0 [facility] Comment on above: Performed By: #### U RTPCR #### [facility] [address] [place] [address] Dr. Dwight Waters Hematocrit (Bld) [Volume fraction] 44.2 % Normal 42.0-54.0 [facility] Comment on above: Performed By: #### U RTPCR #### [facility] [address] [place] [address] Dr. Dwight Waters Hemoglobin (Bld) [Mass/Vol] 14.6 g/dL Normal 14.0-18.0 [facility] Comment on above: Performed By: #### U RTPCR #### [facility] [address] [place] [address] Dr. Dwight Waters IG # 0.02 10e3/ul Normal 0.00-0.03 [facility] Comment on above: Performed By: #### U RTPCR #### [facility] [address] [place] [address] Dr. Dwight Waters IG % 0.3 % Normal 0.0-0.5 [facility] Comment on above: Performed By: #### U RTPCR #### [facility] [address] [place] [address] Dr. Dwight Waters LYMPH # 2.0 103/ul Normal 1.2-3.8 [facility] Comment on above: Performed By: #### U RTPCR #### [facility] [address] [place] [address] Dr. Dwight Waters Lymphocytes/100 WBC (Bld) 28.4 % Normal 20.5-60.0 [facility] Comment on above: Performed By: #### U RTPCR #### [facility] [address] [place] [address] Dr. Dwight Waters MANUAL DIFF REQ NO Normal [facility] Comment on above: Performed By: #### U RTPCR #### [facility] [address] [place] [address] Dr. Dwight Waters MCH (RBC) [Entitic mass] 28.6 pg Normal 25.9-34.0 [facility] Comment on above: Performed By: #### U RTPCR #### [facility] [address] [place] [address] Dr. Dwight Waters MCHC (RBC) [Mass/Vol] 33.0 g/dL Normal 29.9-35.2 [facility] Comment on above: Performed By: #### U RTPCR #### [facility] [address] [place] [address] Dr. Dwight Waters MCV (RBC) [Entitic vol] 86.7 fL Normal 80.0-94.0 [facility] Comment on above: Performed By: #### U RTPCR #### [facility] [address] [place] [address] Dr. Dwight Waters MONO # 0.6 103/ul Normal 0.3-0.8 [facility] Comment on above: Performed By: #### U RTPCR #### [facility] [address] [place] [address] Dr. Dwight Waters Monocytes/100 WBC (Bld) 9.1 % Normal 1.7-12.0 [facility] Comment on above: Performed By: #### U RTPCR #### [facility] [address] [place] [address] Dr. Dwight Waters NEUT # 4.0 103/ul Normal 1.4-6.5 [facility] Comment on above: Performed By: #### U RTPCR #### [facility] [address] [place] [address] Dr. Dwight Waters Neutrophils/100 WBC (Bld) 58.1 % Normal 43.0-75.0 [facility] Comment on above: Performed By: #### U RTPCR #### [facility] [address] [place] [address] Dr. Dwight Waters Platelet mean volume (Bld) [Entitic vol] 9.5 fL Normal 9.5-13.5 [facility] Comment on above: Performed By: #### U RTPCR #### [facility] [address] [place] [address] Dr. Dwight Waters PLT 292 103/ul Normal 150-450 [facility] Comment on above: Performed By: #### U RTPCR #### [facility] [address] [place] [address] Dr. Dwight Waters RBC 5.10 106/ul Normal 4.70-6.10 [facility] Comment on above: Performed By: #### U RTPCR #### [facility] [address] [place] [address] Dr. Dwight Waters WBC 6.9 103/ul Normal 4.0-11.0 [facility] Comment on above: Performed By: #### U RTPCR #### [facility] [address] [place] [address] Dr. Dwight Waters CHLORIDEon 07-03-2022 Chloride [Moles/Vol] 108 mmol/L Critically high 98-107 [facility] Comment on above: Performed By: #### C BC #### [facility] [address] [place] [address] Dr. Dwight Waters CO2on 07-03-2022 CO2 [Moles/Vol] 25.2 mmol/L Normal 21.0-32.0 [facility] Comment on above: Performed By: #### C BC #### [facility] [address] [place] [address] Dr. Dwight Waters CREATININEon 07-03-2022 Creatinine [Mass/Vol] 1.03 mg/dL Normal 0.70-1.30 [facility] Comment on above: Performed By: #### U RTPCR #### [facility] [address] [place] [address] Dr. Dwight Waters EGFR-AF NIGERIEN >60 Normal >=60 [facility] Comment on above: Performed By: #### U RTPCR #### [facility] [address] [place] [address] Dr. Dwight Waters EGFR-NON AF NIGERIEN >60 Normal >=60 [facility] Comment on above: Performed By: #### U RTPCR #### [facility] [address] [place] [address] Dr. Dwight Waters GGTon 07-03-2022 Gamma glutamyl transferase [Catalytic activity/Vol] 31 U/L Normal 15-85 [facility] Comment on above: Performed By: #### U RTPCR #### [facility] [address] [place] [address] Dr. Dwight Waters GLUCOSE BLOODon 07-03-2022 Glucose [Mass/Vol] 119 mg/dL Critically high 74-106 T [facility] Comment on above: Performed By: #### U RTPCR #### [facility] [address] [place] [address] Dr. Dwight Waters MAGNESIUMon 07-03-2022 Magnesium [Mass/Vol] 1.4 mg/dL Critically low 1.8-2.4 [facility] Comment on above: Performed By: #### C BC #### [facility] [address] [place] [address] Dr. Dwight Waters NAon 07-03-2022 Sodium [Moles/Vol] 142 mmol/L Normal 136-145 [facility] Comment on above: Performed By: #### C MP #### [facility] [address] [place] [address] Dr. Dwight Waters PHOSPHORUSon 07-03-2022 Phosphate [Mass/Vol] 3.4 mg/dL Normal 2.6-4.7 [facility] Comment on above: Performed By: #### C BC #### [facility] [address] [place] [address] Dr. Dwight Waters POTASSIUMon 07-03-2022 Potassium [Moles/Vol] 4.1 mmol/L Normal 3.5-5.1 [facility] Comment on above: Performed By: #### C BC #### [facility] [address] [place] [address] Dr. Dwight Waters SGOTon 07-03-2022 AST [Catalytic activity/Vol] 14 U/L Critically low 15-37 [facility] Comment on above: Performed By: #### C BC #### [facility] [address] [place] [address] Dr. Dwight Waters SGPTon 07-03-2022 ALT [Catalytic activity/Vol] 25 U/L Normal 16-63 [facility] Comment on above: Performed By: #### C #### [facility] [address] [address] [address] Dwight Waters US KIDNEYSon 07-03-2022 US KIDNEYS Ultrasound kidneys, bilateral HISTORY: Transplant of kidney , pain in the right lower quadrant COMPARISON: None. TECHNIQUE: Transabdominal ultrasound imaging of both kidneys was performed. FINDINGS: The [place] kidneys are diffusely echogenic and atrophic with cortical thinning. The right kidney measures 8.3 x 3.5 x 4.07 m and the left measures 9.9 x 3.8 x 3.6 cm. No hydronephrosis of the [place] kidneys. There is a renal transplant in [...] stone involving the renal transplant. 2. Atrophic [place] kidneys. 3. Normal bladder. Electronically authenticated by: ARCELIA PIZARRO Date: 2022-07-03 17:22 Normal [facility] CT Abdomen and Pelvis WO con traston 06-27-2022 IMPRESSION: 1. Both [place] kidneys are atrophic with improvement in right-sided [...] Adrenals: Adrenal glands are unremarkable. Kidneys: Both [place] kidneys are atrophic. Interval improvement in right [place] kidney hydronephrosis since May 15, 2022. Status [...] Adrenals: Adrenal glands are unremarkable. Kidneys: Both [place] kidneys are atrophic. Interval improvement in right [place] kidney hydronephrosis since May 15, 2022. Status [...] aggressive osseous lesions. IMPRESSION IMPRESSION: 1. Both [place] kidneys are atrophic with improvement in right-sided hydronephrosis since May 15, 2022. 2. 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 No hydronephrosis. No discrete perinephric collection. 3. Partially imaged postsurgical changes related to prior liver transplant. 4. The bladder is decompressed, limiting evaluation. [facility] Radiology Study observation (narrative) [facility] CT Abdomen and Pelvis WO con trastOrdered By: Gera Lu on 06-27-2022 [facility] Work Phone: CBC AUTO DIFFon 06-18-2022 BASO # 0.0 103/ul Normal 0.0-0.1 [facility] Comment on above: Performed By: #### U RTPCR #### [facility] [address] [address] [address] Dwight Waters Basophils/100 WBC (Bld) 0.5 % Normal 0.2-2.0 [facility] Comment on above: Performed By: #### U RTPCR #### [facility] [address] [address] [address] Dwight Waters EO # 0.2 103/ul Normal 0.0-0.7 [facility] Comment on above: Performed By: #### U RTPCR #### [facility] [address] [place] [address] Dr. Dwight Waters Eosinophils/100 WBC (Bld) 2.3 % Normal 0.9-7.0 [facility] Comment on above: Performed By: #### U RTPCR #### [facility] [address] [place] [address] Dr. Dwight Waters Erythrocyte distribution width (RBC) [Ratio] 12.9 % Normal 11.0-15.0 [facility] Comment on above: Performed By: #### U RTPCR #### [facility] [address] [place] [address] Dr. Dwight Waters Hematocrit (Bld) [Volume fraction] 41.2 % Critically low 42.0-54.0 [facility] Comment on above: Performed By: #### U RTPCR #### [facility] [address] [place] [address] Dr. Dwight Waters Hemoglobin (Bld) [Mass/Vol] 13.3 g/dL Critically low 14.0-18.0 [facility] Comment on above: Performed By: #### U RTPCR #### [facility] [address] [place] [address] Dr. Dwight Waters IG # 0.04 10e3/ul Critically high 0.00-0.03 [facility] Comment on above: Performed By: #### U RTPCR #### [facility] [address] [place] [address] Dr. Dwight Waters IG % 0.5 % Normal 0.0-0.5 [facility] Comment on above: Performed By: #### U RTPCR #### [facility] [address] [place] [address] Dr. Dwight Waters LYMPH # 2.0 103/ul Normal 1.2-3.8 [facility] Comment on above: Performed By: #### U RTPCR #### [facility] [address] [place] [address] Dr. Dwight Waters Lymphocytes/100 WBC (Bld) 22.9 % Normal 20.5-60.0 [facility] Comment on above: Performed By: #### U RTPCR #### [facility] [address] [place] [address] Dr. Dwight Waters MANUAL DIFF REQ NO Normal [facility] Comment on above: Performed By: #### U RTPCR #### [facility] [address] [place] [address] Dr. Dwight Waters MCH (RBC) [Entitic mass] 28.7 pg Normal 25.9-34.0 [facility] Comment on above: Performed By: #### U RTPCR #### [facility] [address] [place] [address] Dr. Dwight Waters MCHC (RBC) [Mass/Vol] 32.3 g/dL Normal 29.9-35.2 [facility] Comment on above: Performed By: #### U RTPCR #### [facility] [address] [place] [address] Dr. Dwight Waters MCV (RBC) [Entitic vol] 88.8 fL Normal 80.0-94.0 [facility] Comment on above: Performed By: #### U RTPCR #### [facility] [address] [place] [address] Dr. Dwight Waters MONO # 0.8 103/ul Normal 0.3-0.8 [facility] Comment on above: Performed By: #### U RTPCR #### [facility] [address] [place] [address] Dr. Dwight Waters Monocytes/100 WBC (Bld) 9.7 % Normal 1.7-12.0 [facility] Comment on above: Performed By: #### U RTPCR #### [facility] [address] [place] [address] Dr. Dwight Waters NEUT # 5.6 103/ul Normal 1.4-6.5 [facility] Comment on above: Performed By: #### U RTPCR #### [facility] [address] [address] [address] Dwight Waters Neutrophils/100 WBC (Bld) 64.1 % Normal 43.0-75.0 [facility] Comment on above: Performed By: #### U RTPCR #### [facility] [address] [place] [address] Dr. Dwight Waters Platelet mean volume (Bld) [Entitic vol] 10.0 fL Normal 9.5-13.5 [facility] Comment on above: Performed By: #### U RTPCR #### [facility] [address] [place] [address] Dr. Dwight Waters PLT 270 103/ul Normal 150-450 [facility] Comment on above: Performed By: #### U RTPCR #### [facility] [address] [place] [address] Dr. Dwight Waters RBC 4.64 106/ul Critically low 4.70-6.10 [facility] Comment on above: Performed By: #### U RTPCR #### [facility] [address] [place] [address] Dr. Dwight Waters WBC 8.7 103/ul Normal 4.0-11.0 [facility] Comment on above: Performed By: #### U RTPCR #### [facility] [address] [place] [address] Dr. Dwight Waters CULTURE URINEon 06-18-2022 CULTURE URINE Culture Observations : NO GROWTH. Normal [facility] Comment on above: Performed By: #### U RTPCR #### [facility] [address] [place] [address] Dr. Dwight Waters Covid-19 PCR (CVDTB)on 05-31 SARS-CoV-2 (COVID-19) RNA ESTELITA+probe Ql (Unsp spec) Not detected Normal NOT DETECTED [facility] Comment on above: Result Comment: When [...] for this test is supported by the [place] of Health and Human Service's declaration that [...] used). Performed By: #### C BC #### [facility] [address] [place] [address] Dr. Dwight Waters ER URINE PROFILEon 2 Bilirubin Ql (U) Negative Normal NEGATIVE [facility] Comment on above: Performed By: #### U RTPCR #### [facility] [address] [place] [address] Dr. Dwight Waters Clarity (U) CLEAR Normal CLEAR [facility] Comment on above: Performed By: #### U RTPCR #### [facility] [address] [place] [address] Dr. Dwight Waters Color (U) YELLOW Normal YELLOW [facility] Comment on above: Performed By: #### U RTPCR #### [facility] [address] [place] [address] Dr. Dwight Waters ERULATONYAD A micrscopic examina tion will be performed if indicated. Normal [facility] Comment on above: Performed By: #### U RTPCR #### [facility] [address] [place] [address] Dr. Dwight Waters Glucose Ql (U) Negative Normal NEGATIVE [facility] Comment on above: Performed By: #### U RTPCR #### [facility] [address] [place] [address] Dr. Dwight Waters Hemoglobin Ql (U) LARGE Abnormal NEGATIVE [facility] Comment on above: Performed By: #### U RTPCR #### [facility] [address] [place] [address] Dr. Dwight Waters Ketones Ql (U) Negative Normal NEGATIVE [facility] Comment on above: Performed By: #### U RTPCR #### [facility] [address] [place] [address] Dr. Dwight Waters LEUKOCYTES TRACE Abnormal NEGATIVE [facility] Comment on above: Performed By: #### U RTPCR #### [facility] [address] [place] [address] Dr. Dwight Waters Nitrite Ql (U) Negative Normal NEGATIVE [facility] Comment on above: Performed By: #### U RTPCR #### [facility] [address] [place] [address] Dr. Dwight Waters pH (U) 6.0 [pH] Normal 5-9 [facility] Comment on above: Performed By: #### U RTPCR #### [facility] [address] [place] [address] Dr. Dwight Waters Protein (U) [Mass/Vol] 30 mg/dL Abnormal NEGATIVE/ TRACE [facility] Comment on above: Performed By: #### U RTPCR #### [facility] [address] [place] [address] Dr. Dwight Waters SPEC GRAVITY >=1.030 Abnormal 1.005-<=1.02 5 [facility] Comment on above: Performed By: #### U RTPCR #### [facility] [address] [place] [address] Dr. Dwight Waters UR MICRO IND INDICATED Normal [facility] Comment on above: Performed By: #### U RTPCR #### [facility] [address] [place] [address] Dr. Dwight Waters Urobilinogen Qn (U) 0.2 {Alyssa'U}/dL Normal 0.2 - 1. 0 [facility] Comment on above: Performed By: #### U RTPCR #### [facility] [address] [place] [address] Dr. Dwight Waters PROF 14(COMP METB)on 022 Albumin [Mass/Vol] 3.7 g/dL Normal 3.4-5.0 [facility] Comment on above: Performed By: #### C MP #### [facility] [address] [place] [address] Dr. Dwight Waters Albumin/Globulin [Mass ratio] 0.9 {ratio} Normal [facility] Comment on above: Performed By: #### C MP #### [facility] [address] [place] [address] Dr. Dwihgt Waters ALP [Catalytic activity/Vol] 80 U/L Normal 46-116 [facility] Comment on above: Performed By: #### C MP #### [facility] [address] [place] [address] Dr. Dwight Waters ALT [Catalytic activity/Vol] 24 U/L Normal 16-63 [facility] Comment on above: Performed By: #### C MP #### [facility] [address] [place] [address] Dr. Dwight Waters Anion gap [Moles/Vol] 12.9 mmol/L Normal [facility] Comment on above: Performed By: #### C MP #### [facility] [address] [place] [address] Dr. Dwight Waters AST [Catalytic activity/Vol] 17 U/L Normal 15-37 [facility] Comment on above: Performed By: #### C MP #### [facility] [address] [place] [address] Dr. Dwight Waters Bilirubin [Mass/Vol] 0.8 mg/dL Normal 0.2-1.0 [facility] Comment on above: Performed By: #### C MP #### [facility] [address] [place] [address] Dr. Dwight Waters Calcium [Mass/Vol] 9.4 mg/dL Normal 8.5-10.1 [facility] Comment on above: Performed By: #### C MP #### [facility] [address] [place] [address] Dr. Dwight Waters Chloride [Moles/Vol] 106 mmol/L Normal 98-107 [facility] Comment on above: Performed By: #### C MP #### [facility] [address] [place] [address] Dr. Dwight Waters CO2 [Moles/Vol] 25.3 mmol/L Normal 21.0-32.0 [facility] Comment on above: Performed By: #### C MP #### [facility] [address] [place] [address] Dr. Dwight Waters Creatinine [Mass/Vol] 1.29 mg/dL Normal 0.70-1.30 [facility] Comment on above: Performed By: #### C MP #### [facility] [address] [address] [address] Dwight Waters EGFR-AF NIGERIEN >60 Normal >=60 [facility] Comment on above: Performed By: #### C MP #### [facility] [address] [place] [address] Dr. Dwight Waters EGFR-NON AF NIGERIEN 59 mL/min/1.73m2 Critically low >=60 [facility] Comment on above: Performed By: #### C MP #### [facility] [address] [place] [address] Dr. Dwight Waters Globulin (S) [Mass/Vol] 4.2 g/dL Normal [facility] Comment on above: Performed By: #### C MP #### [facility] [address] [place] [address] Dr. Dwight Waters Glucose [Mass/Vol] 106 mg/dL Normal 74-106 [facility] Comment on above: Performed By: #### C MP #### [facility] [address] [place] [address] Dr. Dwight Waters Potassium [Moles/Vol] 4.2 mmol/L Normal 3.5-5.1 [facility] Comment on above: Performed By: #### C MP #### [facility] [address] [place] [address] Dr. Dwight Waters Protein [Mass/Vol] 7.9 g/dL Normal 6.4-8.2 [facility] Comment on above: Performed By: #### C MP #### [facility] [address] [place] [address] Dr. Dwight Waters Sodium [Moles/Vol] 140 mmol/L Normal 136-145 [facility] Comment on above: Performed By: #### C MP #### [facility] [address] [address] [address] Dwight Waters Urea nitrogen [Mass/Vol] 22.0 mg/dL Critically high 7.0-18.0 [facility] Comment on above: Performed By: #### C MP #### [facility] [address] [address] [address] Dwight Waters Urea nitrogen/Creatinine [Mass ratio] 17.1 mg/mg Normal [facility] Comment on above: Performed By: #### C MP #### [facility] [address] [address] [address] Dwight Waters URINE MICROSCOPIC ONLYon BACTERIA TRACE Abnormal NONE SEEN [facility] Comment on above: Performed By: #### U RTPCR #### [facility] [address] [place] [address] Dr. Dwight Waters Bacteria identified Cx Nom (U) INDICATED Normal [facility] Comment on above: Performed By: #### U RTPCR #### [facility] [address] [place] [address] Dr. Dwight Waters CAST NONE SEEN Normal NONE SEEN [facility] Comment on above: Performed By: #### U RTPCR #### [facility] [address] [place] [address] Dr. Dwight Waters Crystals LM Nom (Urine sed) NONE SEEN Normal NONE SEEN [facility] Comment on above: Performed By: #### U RTPCR #### [facility] [address] [place] [address] Dr. Dwight Waters Epithelial cells LM Ql (Urine sed) NONE SEEN Normal NONE SEEN /RARE [facility] Comment on above: Performed By: #### U RTPCR #### [facility] [address] [place] [address] Dr. Dwight Waters MUCOUS NONE SEEN Normal NONE SEEN [facility] Comment on above: Performed By: #### U RTPCR #### [facility] [address] [place] [address] Dr. Dwight Waters RBC 5-10 Abnormal 0-2 [facility] Comment on above: Performed By: #### U RTPCR #### [facility] [address] [place], [place] [address] Dr. Dwight Waters WBC 10-20 Abnormal NONE SEEN [facility] Comment on above: Performed By: #### U RTPCR #### [facility] [address] [place], [place] [address] Dr. Dwight Waters ALLOSCREEN RECIPIENT (POST T [...] need for FDA approval.Testing performed by the [facility] Clinical Histocompatibility Laboratory. [facility] number: [id number]. CLIA number: [id number], Director: Carlito Merchant, PhD, D([facility]). ANTIBODY SPECIFICITY INTERPRETATION Detected [facility] CLASS I SPECIFICITIES Not detected [facility] CLASS II SPECIFICITIES Not detected [facility] HLA Ab (S) 0 % 0 [facility] EXTRA MICROon 06-13-2022 [facility] RBC (Bld) [#/Vol] 4.85 10*6/uL [facility] WBC (Bld) [#/Vol] 7.68 10*3/uL 3.73 - 10. 10 K/uL [facility] CHEM 7 (LYTES,BUN,CREA,GLUC) on 06-12-2022 Anion gap [...] [facility] HEMOGLOBIN [id number] By: Link Roche on 06-12-2022 Average glucose Estimated from glycated hemoglobin (Bld) [Mass/Vol] 126 mg/dL [facility] HbA1c (Bld) [Mass fraction] 6.0 % High 4.7 - 5.6 % [facility] Interpretation and review of laboratory results Abnormal [facility] HEPATIC FUNCTION PANELon Albumin [Mass/Vol] 4.3 g/dL [...] Interpretation and review of laboratory results Normal [facility] PTH INTACTOrdered By: Marli Lizarraga on 06-12-2022 Interpretation and review of laboratory results Abnormal [facility] Parathyrin.intact [Mass/Vol] 79.7 pg/mL High 14.0 - 72.0 pg/mL [facility] URINALYSIS REFLEX TO CULTURE PERFORMABLEon [...] Test strip Ql (U) Small Abnormal Negative [facility] Nitrite Ql (U) Negative Negative [facility] pH (U) 5.5 [pH] 5.0 - 7.0 [facility] Protein (U) [Mass/Vol] 30 mg/dL Abnormal Negative [facility] RBC (U) [#/Vol] Trace Abnormal Negative [facility] RBC LM.HPF (Urine sed) [#/Area] 0-2 0 - 2 /HPF [facility] Specific gravity (U) [Rel density] 1.026 [facility] Urobilinogen (U) [Mass/Vol] 0.2 E.U./dL 0.2 E.U/dL, 1.0 E.U/dL [facility] WBC LM.HPF (Urine sed) [#/Area] 10-20 Abnormal 0 - 5 /HPF [facility] URINE PROTEIN/CREA RATIO, RA NDOMon 06-12-2022 Creatinine (24H U) [Mass/Vol] 231.68 mg/dL [facility] Protein Unsp time (U) [Mass/Vol] 49 mg/dL [facility] Protein/Creatinine (U) [Mass ratio] 0.211 [facility]) WHOLE BLO ODon 06-09-2022 Tacrolimus (FK506), Blood 9.8 ng/mL Normal 2.0-20.0 [facility] Comment on above: Result Comment: Trou gh (immediately following transplant) 15.0 . Trough (steady state, 2 weeks or more after transplant): 3.0 - 8.0 . Performed by LC-MS/MS technology. Performed By: #### U RTPCR #### [facility] [address] [place] [address] Dr. Dwight Waters ALBUMINon 06-06-2022 Albumin [Mass/Vol] 3.8 g/dL Normal 3.4-5.0 [facility] Comment on above: Performed By: #### C MP #### [facility] [address] [place] [address] Dr. Dwight Waters ALKALINE PHOSPHAon ALP [Catalytic activity/Vol] 82 U/L Normal 46-116 [facility] Comment on above: Performed By: #### C MP #### [facility] [address] [place] [address] Dr. Dwight Waters BILIRUBIN CONJUGATED (DIRECT )on 06-06-2022 BILI, CONJUGATED 0.2 mg/dL Normal 0.0-0.2 [facility] Comment on above: Performed By: #### C BC #### [facility] [address] [place] [address] Dr. Dwight Waters BILIRUBIN TOTALon 06-06-2022 Bilirubin [Mass/Vol] 1.0 mg/dL Normal 0.2-1.0 [facility] Comment on above: Performed By: #### C BC #### [facility] [address] [place] [address] Dr. Dwight Waters BUNon 06-06-2022 Urea nitrogen [Mass/Vol] 18.0 mg/dL Normal 7.0-18.0 [facility] Comment on above: Performed By: #### C BC #### [facility] [address] [place] [address] Dr. Dwight Waters CALCIUMon 06-06-2022 Calcium [Mass/Vol] 9.4 mg/dL Normal 8.5-10.1 [facility] Comment on above: Performed By: #### C MP #### [facility] [address] [address] [address] Dwight Waters CBC AUTO DIFFon 06-06-2022 BASO # 0.1 103/ul Normal 0.0-0.1 [facility] Comment on above: Performed By: #### U RTPCR #### [facility] [address] [place] [address] Dr. Dwight Waters Basophils/100 WBC (Bld) 0.8 % Normal 0.2-2.0 [facility] Comment on above: Performed By: #### U RTPCR #### [facility] [address] [place] [address] Dr. Dwight Waters EO # 0.3 103/ul Normal 0.0-0.7 [facility] Comment on above: Performed By: #### U RTPCR #### [facility] [address] [place] [address] Dr. Dwight Waters Eosinophils/100 WBC (Bld) 3.3 % Normal 0.9-7.0 [facility] Comment on above: Performed By: #### U RTPCR #### [facility] [address] [place] [address] Dr. Dwight Waters Erythrocyte distribution width (RBC) [Ratio] 12.4 % Normal 11.0-15.0 [facility] Comment on above: Performed By: #### U RTPCR #### [facility] [address] [place] [address] Dr. Dwight Waters Hematocrit (Bld) [Volume fraction] 45.1 % Normal 42.0-54.0 [facility] Comment on above: Performed By: #### U RTPCR #### [facility] [address] [place] [address] Dr. Dwight Waters Hemoglobin (Bld) [Mass/Vol] 14.4 g/dL Normal 14.0-18.0 [facility] Comment on above: Performed By: #### U RTPCR #### [facility] [address] [place] [address] Dr. Dwight Waters IG # 0.01 10e3/ul Normal 0.00-0.03 [facility] Comment on above: Performed By: #### U RTPCR #### [facility] [address] [place] [address] Dr. Dwight Waters IG % 0.1 % Normal 0.0-0.5 [facility] Comment on above: Performed By: #### U RTPCR #### [facility] [address] [place] [address] Dr. Dwight Waters LYMPH # 2.2 103/ul Normal 1.2-3.8 [facility] Comment on above: Performed By: #### U RTPCR #### [facility] [address] [place] [address] Dr. Dwight Waters Lymphocytes/100 WBC (Bld) 30.0 % Normal 20.5-60.0 [facility] Comment on above: Performed By: #### U RTPCR #### [facility] [address] [place] [address] Dr. Dwight Waters MANUAL DIFF REQ NO Normal [facility] Comment on above: Performed By: #### U RTPCR #### [facility] [address] [place] [address] Dr. Dwight Waters MCH (RBC) [Entitic mass] 28.2 pg Normal 25.9-34.0 [facility] Comment on above: Performed By: #### U RTPCR #### [facility] [address] [place] [address] Dr. Dwight Waters MCHC (RBC) [Mass/Vol] 31.9 g/dL Normal 29.9-35.2 [facility] Comment on above: Performed By: #### U RTPCR #### [facility] [address] [place] [address] Dr. Dwight Waters MCV (RBC) [Entitic vol] 88.3 fL Normal 80.0-94.0 [facility] Comment on above: Performed By: #### U RTPCR #### [facility] [address] [place] [address] Dr. Dwight Waters MONO # 0.6 103/ul Normal 0.3-0.8 [facility] Comment on above: Performed By: #### U RTPCR #### [facility] [address] [address] [address] Dwight Waters Monocytes/100 WBC (Bld) 8.2 % Normal 1.7-12.0 [facility] Comment on above: Performed By: #### U RTPCR #### [facility] [address] [address] [address] Dwight Waters NEUT # 4.3 103/ul Normal 1.4-6.5 [facility] Comment on above: Performed By: #### U RTPCR #### [facility] [address] [place] [address] Dr. Dwight Waters Neutrophils/100 WBC (Bld) 57.6 % Normal 43.0-75.0 [facility] Comment on above: Performed By: #### U RTPCR #### [facility] [address] [place] [address] Dr. Dwight Waters Platelet mean volume (Bld) [Entitic vol] 9.7 fL Normal 9.5-13.5 [facility] Comment on above: Performed By: #### U RTPCR #### [facility] [address] [place] [address] Dr. Dwight Waters PLT 297 103/ul Normal 150-450 [facility] Comment on above: Performed By: #### U RTPCR #### [facility] [address] [place] [address] Dr. Dwight Waters RBC 5.11 106/ul Normal 4.70-6.10 [facility] Comment on above: Performed By: #### U RTPCR #### [facility] [address] [place] [address] Dr. Dwight Waters WBC 7.5 103/ul Normal 4.0-11.0 [facility] Comment on above: Performed By: #### U RTPCR #### [facility] [address] [place], [place] [address] Dr. Dwight Waters CHLORIDEon 06-06-2022 Chloride [Moles/Vol] 107 mmol/L Normal 98-107 [facility] Comment on above: Performed By: #### C BC #### [facility] [address] [place] [address] Dr. Dwight Waters CO2on 06-06-2022 CO2 [Moles/Vol] 27.4 mmol/L Normal 21.0-32.0 [facility] Comment on above: Performed By: #### C BC #### [facility] [address] [place] [address] Dr. Dwight Waters CREATININEon 06-06-2022 Creatinine [Mass/Vol] 1.20 mg/dL Normal 0.70-1.30 [facility] Comment on above: Performed By: #### C BC #### [facility] [address] [place] [address] Dr. Dwight Waters EGFR-AF NIGERIEN >60 Normal >=60 [facility] Comment on above: Performed By: #### C BC #### [facility] [address] [place] [address] Dr. Dwight Waters EGFR-NON AF NIGERIEN >60 Normal >=60 [facility] Comment on above: Performed By: #### C BC #### [facility] [address] [place] [address] Dr. Dwight Waters GGTon 06-06-2022 Gamma glutamyl transferase [Catalytic activity/Vol] 29 U/L Normal 15-85 [facility] Comment on above: Performed By: #### C BC #### [facility] [address] [place] [address] Dr. Dwight Waters GLUCOSE BLOODon 06-06-2022 Glucose [Mass/Vol] 112 mg/dL Critically high 74-106 [facility] Comment on above: Performed By: #### C BC #### [facility] [address] [place] [address] Dr. Dwight Waters MAGNESIUMon 06-06-2022 Magnesium [Mass/Vol] 1.3 mg/dL Critically low 1.8-2.4 [facility] Comment on above: Performed By: #### C MP #### [facility] [address] [place] [address] Dr. Dwight Waters NAon 06-06-2022 Sodium [Moles/Vol] 141 mmol/L Normal 136-145 [facility] Comment on above: Performed By: #### C MP #### [facility] [address] [place] [address] Dr. Dwight Waters PHOSPHORUSon 06-06-2022 Phosphate [Mass/Vol] 3.1 mg/dL Normal 2.6-4.7 [facility] Comment on above: Performed By: #### C MP #### [facility] [address] [place] [address] Dr. Dwight Waters POTASSIUMon 06-06-2022 Potassium [Moles/Vol] 4.3 mmol/L Normal 3.5-5.1 [facility] Comment on above: Performed By: #### C BC #### [facility] [address] [place] [address] Dr. Dwight Waters SGOTon 06-06-2022 AST [Catalytic activity/Vol] 16 U/L Normal 15-37 [facility] Comment on above: Performed By: #### C BC #### [facility] [address] [place] [address] Dr. Dwight Waters SGPTon 06-06-2022 ALT [Catalytic activity/Vol] 50 U/L Normal 16-63 [facility] Comment on above: Performed By: #### C BC #### [facility] [address] [place] [address] Dr. Dwight Waters Bacteria identified Cx Nom ( Bld)on 05-21-2022 Bacteria identified Cx Nom (Unsp spec) NO GROWTH DAY 5 OF 5 [facility] Results may be compr omised due to volume of BACT\ALERT bottle exceeding 10mLs . The optimal blood volume is 8-10 mls per aerobic/anaerobic blood culture bottle. [facility] CALCIUMon 05-20-2022 Calcium [Mass/Vol] 9.1 mg/dL 8.6 [...] Center RBC (Bld) [#/Vol] 4.25 10*6/uL [facility] WBC (Bld) [#/Vol] 6.31 10*3/uL 3.73 - 10. 10 K/uL [facility] CHEM 7 (LYTES,BUN,CREA,GLUC) on 05-20-2022 Anion gap [...] Center Urea nitrogen/Creatinine [Mass ratio] 16 mg/mg [facility] MAGNESIUMon 05-20-2022 Interpretation and review of laboratory results Abnormal [facility] Magnesium [Mass/Vol] 1.5 mg/dL Low 1.6 - 2 .6 mg/dL [facility] No Panel Informationon 05-20 Interpretation and review of laboratory results Normal [facility] PHOSPHATE, INORGANICon 05-20 Phosphate [Mass/Vol] 3.3 mg/dL 2.2 - 4 .6 mg/dL [facility] RF Unspecified body region V [...] of kidneys, ureters, and bladder. FINDINGS: Manager Pe images: Manager Pe radiographs of the abdomen reveal a nonobstructive [...] Contrast refluxes up the ureter to the lower brule right kidney that is grossly normal appearing. [...] of kidneys, ureters, and bladder. FINDINGS: Manager Pe images: Manager Pe radiographs of the abdomen reveal a nonobstructive [...] Contrast refluxes up the ureter to the lower b[place] right kidney that is grossly normal appearing. [...] (narrative) [facility] RF Unspecified body region V [...] Center RBC (Bld) [#/Vol] 4.20 10*6/uL [facility] WBC (Bld) [#/Vol] 6.81 10*3/uL 3.73 - 10. 10 K/uL [facility] CHEM 7 (LYTES,BUN,CREA,GLUC) on 05-19-2022 Anion gap [Moles/Vol] 13 mmol/L 7 - 17 mmol/L [facility] Chloride [Moles/Vol] 105 mmol/L 98 - 10 8 mmol/L [facility] CO2 [Moles/Vol] 30 mmol/L 21 - 31 mmol/L [facility] Creatinine [Mass/Vol] 1.39 mg/dL High 0.70 - 1.30 mg/dL [facility] Osmolality Calc [Osmolality] 303 [facility] Potassium [...] [facility] Osmolality Calc [Osmolality] 298 [facility] Potassium [...] Interpretation and review of laboratory results Normal [facility] Interpretation and review of laboratory results Normal [facility] PHOSPHATE, INORGANICon 05-19 Phosphate [Mass/Vol] 3.0 mg/dL [...] Center RBC (Bld) [#/Vol] 4.12 10*6/uL [facility] WBC (Bld) [#/Vol] 10.19 10*3/uL High 3.73 - 10 .10 K/uL [facility] CHEM 7 (LYTES,BUN,CREA,GLUC) on 05-18-2022 Anion gap [...] 158 mg/dL High 70 - 99 mg[facility] Osmolality Calc [Osmolality] 297 [facility] Potassium [Moles/Vol] 4.0 mmol/L 3.5 - 5.0 mmol/L [facility] Sodium [Moles/Vol] 137 mmol/L 135 - 145 mmol/L [facility] Urea nitrogen [Mass/Vol] 30 mg/dL High 7 - 25 mg/dL [facility] Urea nitrogen/Creatinine [Mass ratio] 16 mg/mg [facility] CHEM 7 (LYTES,BUN,CREA,GLUC) Ordered By: Tamiko Thapa on 05-18-2022 Anion gap [Moles/Vol] 13 mmol/L 7 - 17 mmol/L [facility] Chloride [Moles/Vol] 104 mmol/L 98 - 10 8 mmol/L [facility] CO2 [Moles/Vol] 26 mmol/L 21 - [...] [facility] Osm[facility]ality Calc [Osmolality] 304 [facility] Potassium [Moles/Vol] 4.2 mmol/L 3.5 - 5.0 mmol/L [facility] Sodium [Moles/Vol] 139 mmol/L 135 - 145 mmol/L [facility] Urea nitrogen [Mass/Vol] 41 mg/dL High 7 - 25 mg/dL [facility] Urea nitrogen/Creatinine [Mass ratio] 14 mg/mg [facility] MAGNESIUMon 05-18-2022 Magnesium [Mass/Vol] 2.2 mg/dL 1.6 - 2 .6 mg/dL [facility] Interpretation and review of laboratory results Normal [facility] Magnesium [Mass/Vol] 1.7 mg/dL 1.6 - 2 .6 mg/dL [facility] No Panel Informationon 05-18 Interpretation and review of laboratory results Abnormal [facility] Interpretation and review of laboratory results Normal [facility] PHOSPHATE, INORGANICon 05-18 Phosphate [Mass/Vol] 2.0 mg/dL [...] PT Coag (PPP) [Time] 14.4 s High [facility] URINE CULTUREOrdered By: Sylvia Campos on 05-18-2022 Bacteria identified Cx Nom (Unsp spec) No Growth [facility] CBC,PLATELETSon 05-17-2022 Erythrocyte distribution width (RBC) [Ratio] [...] [facility] Center RBC (Bld) [#/Vol] 4.61 10*6/uL [facility] WBC (Bld) [#/Vol] 16.61 10*3/uL High 3.73 - 10 .10 K/uL [facility] CHEM 7 (LYTES,BUN,CREA,GLUC) Ordered By: Kaylah Mc [...] Center Urea nitrogen/Creatinine [Mass ratio] 9 mg[facility] CHEM 7 (LYTES,BUN,CREA,GLUC) Ordered By: Kehinde Gutierrez on 05-17-2022 Anion gap [Moles/Vol] 24 mmol/L High 7 - 17 mmol/L [facility] Chloride [Moles/Vol] 100 mmol/L 98 - 10 8 mmol/L [facility] CO2 [Moles/Vol] 16 mmol/L Low 21 - 31 mmol/L [facility] Creatinine [Mass/Vol] 8.08 mg/dL High 0.70 [...] Center Urea nitrogen/Creatinine [Mass ratio] 7 mg/mg [facility] LAVENDER TOP TUBEon 05-17-20 [facility] MAGNESIUMon 05-17-2022 Interpretation and review of laboratory results Normal [facility] Magnesium [Mass/Vol] 1.8 mg/dL 1.6 - 2 .6 mg/dL [facility] Interpretation and review of laboratory results Normal [facility] Magnesium [Mass/Vol] 1.6 mg/dL 1.6 - 2 .6 mg/dL [facility] No Panel Informationon 05-17 [facility] PHOSPHATE, INORGANICon 05-17 Interpretation and review of laboratory results Abnormal [facility] Phosphate [Mass/Vol] 4.9 mg/dL High 2.2 - 4 .6 mg/dL [facility] PT,INR,PTTon 05-17-2022 aPTT Coag (PPP) [Time] 33.0 s [facility] INR Coag (Bld) [Relative time] 1.3 {INR} High [facility] Interpretation and review of laboratory results Abnormal [facility] PT Coag (PPP) [Time] 15.7 s High [facility] Portable XR Chest Viewson IMPRESSION: No acute [...] recommended. RBC (U) [#/Vol] Large Abnormal Negative [facility] Comment on above: Results may be inacc [...] [#/Area] /[HPF] Abnormal 0 - 5 /HPF [facility] URINE CULTUREOrdered By: Tyler Tiwari on 05-17-2022 Bacteria identified Cx Nom (Unsp spec) No Growth [facility] CBC,PLATELETSon 05-16-2022 Erythrocyte distribution width (RBC) [Ratio] [...] [facility] Center RBC (Bld) [#/Vol] 5.19 10*6/uL [facility] WBC (Bld) [#/Vol] 12.55 10*3/uL High 3.73 - 10 .10 K/uL [facility] CHEM 7 (LYTES,BUN,CREA,GLUC) Ordered By: Alma Pena [...] [facility] Osmolality Calc [Osmolality] 298 [facility] Potassium [Moles/Vol] 4.9 mmol/L 3.5 - 5.0 mmol/L [facility] Sodium [Moles/Vol] 134 mmol/L Low 135 - 145 mmol/L [facility] Comment on above: Results inconsistent with previous results Urea nitrogen [Mass/Vol] 49 mg/dL High 7 - 25 mg/dL [facility] Urea nitrogen/Creatinine [Mass ratio] 8 mg/mg [facility] CHEM 7 (LYTES,BUN,CREA,GLUC) on 05-16-2022 Anion gap [...] [facility] Comment on above: [facility] Negative results [...] [facility] No Panel Informationon 05-16 [facility] OSMOLALITY, URINEon 05-16-20 Interpretation and review of laboratory results Normal [facility] Osmolality (U) [Osmolality] 320 mosm/kg [facility] The reference range has not been established for random urine specimens. The test result should be integrated into the clinical context for interpretation. [facility] PROCALCITONINon 05-16-2022 Interpretation and review of laboratory [...] and trend procalcitonin in various clinical settings. [email or web address] Two common cutoffs associated with [...] Center PT Coag (PPP) [Time] 14.1 s [facility] SARS-CoV-2 (COVID-19) RNA NA A+probe Ql (Unsp spec)Ordered By: Edson Candelario on 05-16-2022 Interpretation and review of laboratory results Normal [facility] TACROLIMUS LEVEL, TROUGH (WI E DRUG LEVEL)Ordered By: Mariama Nick on 05-16-2022 Interpretation and review of laboratory results Normal [facility] Tacrolimus (Bld) [Mass/Vol] 4.1 ng/mL Bone Marrow Transplant: 4.0-12.0, Therapeutic: 5.0-15.0 [facility] Method performed is a chemiluminescent microparticle immunoasssay on the [employer] i2000. The range is based on experience at [facility] and users should be aware that target concentrations vary widely depending on concomitant therapy, time post-transplant, and desired degree of immunosuppression. [facility] URINE PROTEIN/CREA RATIO, RA NDOMon 05-16-2022 Creatinine (24H U) [Mass/Vol] 59.82 mg/dL [facility] Protein Unsp time (U) [Mass/Vol] 111 mg/dL [facility] Protein/Creatinine (U) [Mass ratio] 1.856 mg/g [facility] US [...] cell count method Nom (Bld) Electronic Differential [facility] Eosinophils (Bld) [#/Vol] 10*3/uL 0.00 - 0.48 [...] [#/Vol] 1.49 10*3/uL 0.83 - 3.57 K/uL [facility] Lymphocytes/100 WBC (Bld) 9.4 % [...] Medical Center RBC (Bld) [#/Vol] 5.17 10*6/uL [facility] Segmented neutrophils/100 WBC (Bld) 80.8 % [facility] WBC (Bld) [#/Vol] 15.81 10*3/uL High 3.73 - 10 .10 K/uL [facility] CBC AUTO DIFFon 05-15-2022 BASO # 0.0 103/ul Normal 0.0-0.1 [facility] Comment on above: Performed By: #### C BC #### [facility] [address] [place] [address] Dr. Dwight Waters Basophils/100 WBC (Bld) 0.3 % Normal 0.2-2.0 [facility] Comment on above: Performed By: #### C BC #### [facility] [address] [place] [address] Dr. Dwight Waters EO # 0.1 103/ul Normal 0.0-0.7 [facility] Comment on above: Performed By: #### C BC #### [facility] [address] [place] [address] Dr. Dwight Waters Eosinophils/100 WBC (Bld) 0.8 % Critically low 0.9-7.0 [facility] Comment on above: Performed By: #### C BC #### [facility] [address] [place] [address] Dr. Dwight Waters Erythrocyte distribution width (RBC) [Ratio] 12.7 % Normal 11.0-15.0 [facility] Comment on above: Performed By: #### C BC #### [facility] [address] [place] [address] Dr. Dwight Waters Hematocrit (Bld) [Volume fraction] 43.5 % Normal 42.0-54.0 [facility] Comment on above: Performed By: #### C BC #### [facility] [address] [place] [address] Dr. Dwight Waters Hemoglobin (Bld) [Mass/Vol] 14.4 g/dL Normal 14.0-18.0 [facility] Comment on above: Performed By: #### C BC #### [facility] [address] [place] [address] Dr. Dwight Waters IG # 0.02 10e3/ul Normal 0.00-0.03 [facility] Comment on above: Performed By: #### C BC #### [facility] [address] [place] [address] Dr. Dwight Waters IG % 0.2 % Normal 0.0-0.5 [facility] Comment on above: Performed By: #### C BC #### [facility] [address] [place] [address] Dr. Dwight Waters LYMPH # 1.5 103/ul Normal 1.2-3.8 [facility] Comment on above: Performed By: #### C BC #### [facility] [address] [place] [address] Dr. Dwight Waters Lymphocytes/100 WBC (Bld) 12.5 % Critically low 20.5-60.0 [facility] Comment on above: Performed By: #### C BC #### [facility] [address] [place] [address] Dr. Dwight Waters MANUAL DIFF REQ NO Normal [facility] Comment on above: Performed By: #### C BC #### [facility] [address] [place] [address] Dr. Dwight Waters MCH (RBC) [Entitic mass] 28.6 pg Normal 25.9-34.0 [facility] Comment on above: Performed By: #### C BC #### [facility] [address] [place] [address] Dr. Dwight Waters MCHC (RBC) [Mass/Vol] 33.1 g/dL Normal 29.9-35.2 [facility] Comment on above: Performed By: #### C BC #### [facility] [address] [place] [address] Dr. Dwight Waters MCV (RBC) [Entitic vol] 86.3 fL Normal 80.0-94.0 [facility] Comment on above: Performed By: #### C BC #### [facility] [address] [place] [address] Dr. Dwight Waters MONO # 1.0 103/ul Critically high 0.3-0.8 [facility] Comment on above: Performed By: #### C BC #### [facility] [address] [place] [address] Dr. Dwight Waters Monocytes/100 WBC (Bld) 8.2 % Normal 1.7-12.0 [facility] Comment on above: Performed By: #### C BC #### [facility] [address] [place] [address] Dr. Dwight Waters NEUT # 9.1 103/ul Critically high 1.4-6.5 [facility] Comment on above: Performed By: #### C BC #### [facility] [address] [place] [address] Dr. Dwight Waters Neutrophils/100 WBC (Bld) 78.0 % Critically high 43.0-75.0 [facility] Comment on above: Performed By: #### C BC #### [facility] [address] [place] [address] Dr. Dwight Waters Platelet mean volume (Bld) [Entitic vol] 9.8 fL Normal 9.5-13.5 [facility] Comment on above: Performed By: #### C BC #### [facility] [address] [place] [address] Dr. Dwight Waters PLT 251 103/ul Normal 150-450 [facility] Comment on above: Performed By: #### C BC #### [facility] [address] [place] [address] Dr. Dwight Waters RBC 5.04 106/ul Normal 4.70-6.10 [facility] Comment on above: Performed By: #### C BC #### [facility] [address] [place] [address] Dr. Dwight Waters WBC 11.6 103/ul Critically high 4.0-11.0 [facility] Comment on above: Performed By: #### C BC #### [facility] [address] [place] [address] Dr. Dwight Waters CHEM 6 (LYTES, BUN [...] High 0.70 - 1.30 mg/dL [facility] GFR/1.73 sq M.predicted CKD-EPI (S/P/Bld) [Vol rate/Area] 26 Low >=60 mL/min/1.73m 2 [facility] Comment on above: Reported eGFR is bas ed on the CKD-EPI 2020 equation using creatinine, age, and sex. Potassium [Moles/Vol] 4.6 mmol/L 3.5 - 5.0 mmol/L [facility] Sodium [Moles/Vol] 138 mmol/L 135 - 145 mmol/L [facility] Urea nitrogen [Mass/Vol] 32 mg/dL High 7 - 25 mg/dL [facility] Urea nitrogen/Creatinine [Mass ratio] 11 mg/mg [facility] CT ABD/PELVIS WO CONon 05-15 CT [...] transplanted kidney with moderate right-sided hydronephrosis. Atrophic lower brule kidneys with moderate right-sided hydronephrosis. Multiple nonobstructive [...] transplanted kidney with moderate right-sided hydronephrosis. Atrophic lower b[place] kidneys with moderate right-sided hydronephrosis. Multiple nonobstructive right renal calculi measuring up to 8 mm. FOLLOW-UP: Follow-up as clinically indicated. Electronically authenticated by: LYNDSAY JEAN Date: 2022-05-15 05:04 Normal [facility] Covid-19 PCR (CVDTB)on 04-30 SARS-CoV-2 (COVID-19) RNA ESTELITA+probe Ql (Unsp spec) Not detected Normal NOT DETECTED [facility] Comment on above: Result Comment: When [...] for this test is supported by the Director Of Enrollment of Health and Human Service's declaration that [...] used). Performed By: #### U RTPCR #### [facility] [address] [address] [address] Dwight Waters GLUCOSEon 05-15-2022 Glucose [Mass/Vol] 141 mg/dL High 70 - 99 mg/dL [facility] GOLD TOP TUBEon 05-15-2022 [facility] HEPATIC FUNCTION PANELon Albumin [Mass/Vol] 4.3 g/dL 3.5 - 5.0 g/dL [facility] ALP [Catalytic activity/Vol] 85 U/L [...] Interpretation and review of laboratory results Abnormal [facility] PROF 14(COMP METB)on 022 Albumin [Mass/Vol] 3.8 g/dL Normal 3.4-5.0 [facility] Comment on above: Performed By: #### U RTPCR #### [facility] [address] [place] [address] Dr. Dwight Waters Albumin/Globulin [Mass ratio] 1.1 {ratio} Normal [facility] Comment on above: Performed By: #### U RTPCR #### [facility] [address] [place] [address] Dr. Dwight Waters ALP [Catalytic activity/Vol] 92 U/L Normal 46-116 [facility] Comment on above: Performed By: #### U RTPCR #### [facility] [address] [address] [address] Dwight Waters ALT [Catalytic activity/Vol] 25 U/L Normal 16-63 [facility] Comment on above: Performed By: #### U RTPCR #### [facility] [address] [place] [address] Dr. Dwight Waters Anion gap [Moles/Vol] 14.6 mmol/L Normal [facility] Comment on above: Performed By: #### U RTPCR #### [facility] [address] [address] [address] Dwight Waters AST [Catalytic activity/Vol] 17 U/L Normal 15-37 [facility] Comment on above: Performed By: #### U RTPCR #### [facility] [address] [address] [address] Dwight Waters Bilirubin [Mass/Vol] 0.6 mg/dL Normal 0.2-1.0 [facility] Comment on above: Performed By: #### U RTPCR #### [facility] [address] [address] [address] Dwight Waters Calcium [Mass/Vol] 9.9 mg/dL Normal 8.5-10.1 [facility] Comment on above: Performed By: #### U RTPCR #### [facility] [address] [address] [address] Dwight Waters Chloride [Moles/Vol] 106 mmol/L Normal 98-107 [facility] Comment on above: Performed By: #### U RTPCR #### [facility] [address] [address] [address] Dwight Waters CO2 [Moles/Vol] 24.2 mmol/L Normal 21.0-32.0 [facility] Comment on above: Performed By: #### U RTPCR #### [facility] [address] [address] [address] Dwight Waters Creatinine [Mass/Vol] 1.58 mg/dL Critically high 0.70-1.30 [facility] Comment on above: Performed By: #### U RTPCR #### [facility] [address] [address] [address] Dwight Waters EGFR-AF NIGERIEN 56 mL/min/1.73m2 Critically low >=60 [facility] Comment on above: Performed By: #### U RTPCR #### [facility] [address] [address] [address] Dwight Waters EGFR-NON AF NIGERIEN 46 mL/min/1.73m2 Critically low >=60 [facility] Comment on above: Performed By: #### U RTPCR #### [facility] [address] [address] [address] Dwight Waters Globulin (S) [Mass/Vol] 3.5 g/dL Normal [facility] Comment on above: Performed By: #### U RTPCR #### [facility] [address] [address] [address] Dwight Waters Glucose [Mass/Vol] 162 mg/dL Critically high 74-106 [facility] Comment on above: Performed By: #### U RTPCR #### [facility] [address] [address] [address] Dwight Waters Potassium [Moles/Vol] 3.8 mmol/L Normal 3.5-5.1 [facility] Comment on above: Performed By: #### U RTPCR #### [facility] [address] [address] [address] Dwight Waters Protein [Mass/Vol] 7.3 g/dL Normal 6.4-8.2 [facility] Comment on above: Performed By: #### U RTPCR #### [facility] [address] [address] [address] Dwight Waters Sodium [Moles/Vol] 141 mmol/L Normal 136-145 [facility] Comment on above: Performed By: #### U RTPCR #### [facility] [address] [address] [address] Dwight Waters Urea nitrogen [Mass/Vol] 22.0 mg/dL Critically high 7.0-18.0 [facility] Comment on above: Performed By: #### U RTPCR #### [facility] [address] [address] [address] Dwight Waters Urea nitrogen/Creatinine [Mass ratio] 13.9 mg/mg Normal [facility] Comment on above: Performed By: #### U RTPCR #### [facility] [address] [address] [address] Dwight Waters Portable XR Chest Viewson [...] Center RBC (U) [#/Vol] Large Abnormal Negative [facility] Specific gravity (U) [Rel density] 1.010 [facility] Urobilinogen (U) [Mass/Vol] 0.2 E.U./dL 0.2 E.U/dL, 1.0 E.U/dL [facility] URINE MICROSCOPIC WITH REFLE X TO CULTUREOrdered [...] [#/Area] 10-20 Abnormal 0 - 5 /HPF [facility] CT ABD/PELVIS WO CONon 05-12 CT ABD/PELVIS WO CON Begin Addendum #[address] Lund 3:25 PM EST 05/11/2022. Begin Addendum #2 IMPRESSION below should also contain the followin. 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 The [place] kidneys are progressively atrophic bilaterally compared to [...] of 06/14/2020 are no longer present. The [place] distal right ureter is decompressed beyond this [...] with surgical history for renal graft and lower [place] right urinary drainage, as a discrete ureteroneocystostomy is not identified, and the graft may be draining via a ureteroureterostomy. Urology consultation recommended. 3. The [place] kidneys are bilaterally atrophic, with right renal sinus calcifications consistent with nonobstructing right [place] renal calculi up to 6 mm. Normal [facility] CBC AUTO DIFFon 05-11-2022 BASO # 0.1 103/ul Normal 0.0-0.1 [facility] Comment on above: Performed By: #### U RTPCR #### [facility] [address] [address] [address] Dwight Waters Basophils/100 WBC (Bld) 0.8 % Normal 0.2-2.0 [facility] Comment on above: Performed By: #### U RTPCR #### [facility] [address] [place] [address] Dr. Dwight Waters EO # 0.2 103/ul Normal 0.0-0.7 [facility] Comment on above: Performed By: #### U RTPCR #### [facility] [address] [place] [address] Dr. Dwight Waters Eosinophils/100 WBC (Bld) 2.5 % Normal 0.9-7.0 [facility] Comment on above: Performed By: #### U RTPCR #### [facility] [address] [place] [address] Dr. Dwight Waters Erythrocyte distribution width (RBC) [Ratio] 12.5 % Normal 11.0-15.0 [facility] Comment on above: Performed By: #### U RTPCR #### [facility] [address] [place] [address] Dr. Dwight Waters Hematocrit (Bld) [Volume fraction] 48.3 % Normal 42.0-54.0 [facility] Comment on above: Performed By: #### U RTPCR #### [facility] [address] [place] [address] Dr. Dwight Waters Hemoglobin (Bld) [Mass/Vol] 15.3 g/dL Normal 14.0-18.0 [facility] Comment on above: Performed By: #### U RTPCR #### [facility] [address] [place] [address] Dr. Dwight Waters IG # 0.01 10e3/ul Normal 0.00-0.03 [facility] Comment on above: Performed By: #### U RTPCR #### [facility] [address] [place] [address] Dr. Dwight Waters IG % 0.2 % Normal 0.0-0.5 [facility] Comment on above: Performed By: #### U RTPCR #### [facility] [address] [place] [address] Dr. Dwight Waters LYMPH # 1.9 103/ul Normal 1.2-3.8 [facility] Comment on above: Performed By: #### U RTPCR #### [facility] [address] [place] [address] Dr. Dwight Waters Lymphocytes/100 WBC (Bld) 29.8 % Normal 20.5-60.0 [facility] Comment on above: Performed By: #### U RTPCR #### [facility] [address] [place] [address] Dr. Dwight Waters MANUAL DIFF REQ NO Normal [facility] Comment on above: Performed By: #### U RTPCR #### [facility] [address] [place] [address] Dr. Dwight Waters MCH (RBC) [Entitic mass] 28.2 pg Normal 25.9-34.0 [facility] Comment on above: Performed By: #### U RTPCR #### [facility] [address] [place] [address] Dr. Dwight Waters MCHC (RBC) [Mass/Vol] 31.7 g/dL Normal 29.9-35.2 [facility] Comment on above: Performed By: #### U RTPCR #### [facility] [address] [place] [address] Dr. Dwight Waters MCV (RBC) [Entitic vol] 89.1 fL Normal 80.0-94.0 [facility] Comment on above: Performed By: #### U RTPCR #### [facility] [address] [place] [address] Dr. Dwight Waters MONO # 0.6 103/ul Normal 0.3-0.8 [facility] Comment on above: Performed By: #### U RTPCR #### [facility] [address] [place] [address] Dr. Dwight Waters Monocytes/100 WBC (Bld) 9.0 % Normal 1.7-12.0 [facility] Comment on above: Performed By: #### U RTPCR #### [facility] [address] [address] [address] Dwight Waters NEUT # 3.6 103/ul Normal 1.4-6.5 [facility] Comment on above: Performed By: #### U RTPCR #### [facility] [address] [place] [address] Dr. Dwight Waters Neutrophils/100 WBC (Bld) 57.7 % Normal 43.0-75.0 [facility] Comment on above: Performed By: #### U RTPCR #### [facility] [address] [place] [address] Dr. Dwight Waters Platelet mean volume (Bld) [Entitic vol] 9.9 fL Normal 9.5-13.5 [facility] Comment on above: Performed By: #### U RTPCR #### [facility] [address] [place] [address] Dr. Dwight Waters PLT 249 103/ul Normal 150-450 [facility] Comment on above: Performed By: #### U RTPCR #### [facility] [address] [place] [address] Dr. Dwight Waters RBC 5.42 106/ul Normal 4.70-6.10 [facility] Comment on above: Performed By: #### U RTPCR #### [facility] [address] [place] [address] Dr. Dwight Waters WBC 6.3 103/ul Normal 4.0-11.0 [facility] Comment on above: Performed By: #### U RTPCR #### [facility] [address] [place] [address] Dr. Dwight Waters ER URINE PROFILEon 2 Bilirubin Ql (U) Unable to perform te sting due to color interference. Abnormal NEGATIVE [facility] Comment on above: Performed By: #### U RTPCR #### [facility] [address] [place] [address] Dr. Dwight Waters Clarity (U) TURBID Abnormal CLEAR [facility] Comment on above: Performed By: #### U RTPCR #### [facility] [address] [place] [address] Dr. Dwight Waters Color (U) RED Abnormal YELLOW [facility] Comment on above: Performed By: #### U RTPCR #### [facility] [address] [place] [address] Dr. Dwight Waters ERUAHJenna A micrscopic examina tion will be performed if indicated. Normal [facility] Comment on above: Performed By: #### U RTPCR #### [facility] [address] [place] [address] Dr. Dwight Waters Glucose Ql (U) Unable to perform te sting due to color interference. Abnormal NEGATIVE [facility] Comment on above: Performed By: #### U RTPCR #### [facility] [address] [place] [address] Dr. Dwight Waters Hemoglobin Ql (U) Unable to perform te sting due to color interference. Abnormal NEGATIVE [facility] Comment on above: Performed By: #### U RTPCR #### [facility] [address] [place] [address] Dr. Dwight Waters Ketones Ql (U) Unable to perform te sting due to color interference. Abnormal NEGATIVE [facility] Comment on above: Performed By: #### U RTPCR #### [facility] [address] [place] [address] Dr. Dwight Waters LEUKOCYTES Unable to perform te sting due to color interference. Abnormal NEGATIVE [facility] Comment on above: Performed By: #### U RTPCR #### [facility] [address] [place] [address] Dr. Dwight Waters Nitrite Ql (U) Unable to perform te sting due to color interference. Abnormal NEGATIVE [facility] Comment on above: Performed By: #### U RTPCR #### [facility] [address] [place] [address] Dr. Dwight Waters pH (U) 6.5 [pH] Normal 5-9 [facility] Comment on above: Performed By: #### U RTPCR #### [facility] [address] [place] [address] Dr. Dwight Waters SPEC GRAVITY 1.020 Normal 1.005-<=1.02 5 [facility] Comment on above: Performed By: #### U RTPCR #### [facility] [address] [place] [address] Dr. Dwight Waters UA PROTEIN Unable to perform te sting due to color interference. Normal NEGATIVE/ TRACE [facility] Comment on above: Performed By: #### U RTPCR #### [facility] [address] [place] [address] Dr. Dwight Waters UR MICRO IND INDICATED Normal [facility] Comment on above: Performed By: #### U RTPCR #### [facility] [address] [place] [address] Dr. Dwight Waters UROBILINOGEN Unable to perform te sting due to color interference. Normal 0.2 - 1.0 [facility] Comment on above: Performed By: #### U RTPCR #### [facility] [address] [place] [address] Dr. Dwight Waters PROF 14(COMP METB)on 022 Albumin [Mass/Vol] 3.8 g/dL Normal 3.4-5.0 [facility] Comment on above: Performed By: #### C MP #### [facility] [address] [place] [address] Dr. Dwight Waters Albumin/Globulin [Mass ratio] 1.1 {ratio} Normal [facility] Comment on above: Performed By: #### C MP #### [facility] [address] [place] [address] Dr. Dwight Waters ALP [Catalytic activity/Vol] 106 U/L Normal 46-116 [facility] Comment on above: Performed By: #### C MP #### [facility] [address] [place] [address] Dr. Dwight Waters ALT [Catalytic activity/Vol] 30 U/L Normal 16-63 [facility] Comment on above: Performed By: #### C MP #### [facility] [address] [place] [address] Dr. Dwight Waters Anion gap [Moles/Vol] 11.7 mmol/L Normal [facility] Comment on above: Performed By: #### C MP #### [facility] [address] [address] [address] Dwight Waters AST [Catalytic activity/Vol] 16 U/L Normal 15-37 [facility] Comment on above: Performed By: #### C MP #### [facility] [address] [address] [address] Dwight Waters Bilirubin [Mass/Vol] 0.6 mg/dL Normal 0.2-1.0 [facility] Comment on above: Performed By: #### C MP #### [facility] [address] [address] [address] Dwight Waters Calcium [Mass/Vol] 9.1 mg/dL Normal 8.5-10.1 [facility] Comment on above: Performed By: #### C MP #### [facility] [address] [address] [address] Dwight Waters CO2 [Moles/Vol] 27.4 mmol/L Normal 21.0-32.0 [facility] Comment on above: Performed By: #### C MP #### [facility] [address] [address] [address] Dwight Waters Creatinine [Mass/Vol] 1.18 mg/dL Normal 0.70-1.30 [facility] Comment on above: Performed By: #### C MP #### [facility] [address] [address] [address] Dwight Waters EGFR-AF NIGERIEN >60 Normal >=60 [facility] Comment on above: Performed By: #### C MP #### [facility] [address] [address] [address] Dwight Waters EGFR-NON AF NIGERIEN >60 Normal >=60 [facility] Comment on above: Performed By: #### C MP #### [facility] [address] [address] [address] Dwight Waters Globulin (S) [Mass/Vol] 3.6 g/dL Normal [facility] Comment on above: Performed By: #### C MP #### [facility] [address] [address] [address] Dwight Waters Glucose [Mass/Vol] 192 mg/dL Critically high 74-106 [facility] Comment on above: Performed By: #### C MP #### [facility] [address] [place] [address] Dr. Dwight Waters Potassium [Moles/Vol] 4.1 mmol/L Normal 3.5-5.1 [facility] Comment on above: Performed By: #### C MP #### [facility] [address] [place] [address] Dr. Dwight Waters Protein [Mass/Vol] 7.4 g/dL Normal 6.4-8.2 [facility] Comment on above: Performed By: #### C MP #### [facility] [address] [place] [address] Dr. Dwight Waters Sodium [Moles/Vol] 142 mmol/L Normal 136-145 [facility] Comment on above: Performed By: #### C MP #### [facility] [address] [place] [address] Dr. Dwight Waters Urea nitrogen [Mass/Vol] 17.0 mg/dL Normal 7.0-18.0 [facility] Comment on above: Performed By: #### C MP #### [facility] [address] [place] [address] Dr. Dwight Waters Urea nitrogen/Creatinine [Mass ratio] 14.4 mg/mg Normal [facility] Comment on above: Performed By: #### C MP #### [facility] [address] [place] [address] Dr. Dwight Waters URINE MICROSCOPIC ONLYon BACTERIA NONE SEEN Normal NONE SEEN [facility] Comment on above: Performed By: #### U RTPCR #### [facility] [address] [place] [address] Dr. Dwight Waters Bacteria identified Cx Nom (U) NOT INDICATED Normal [facility] Comment on above: Performed By: #### U RTPCR #### [facility] [address] [place] [address] Dr. Dwight Waters CAST NONE SEEN Normal NONE SEEN [facility] Comment on above: Performed By: #### U RTPCR #### [facility] [address] [address] [address] Dwight Waters Crystals LM Nom (Urine sed) NONE SEEN Normal NONE SEEN [facility] Comment on above: Performed By: #### U RTPCR #### [facility] [address] [place] [address] Dr. Dwight Waters Epithelial cells LM Ql (Urine sed) RARE Normal NONE SEEN /RARE [facility] Comment on above: Performed By: #### U RTPCR #### [facility] [address] [place] [address] Dr. Dwight Waters MUCOUS NONE SEEN Normal NONE SEEN [facility] Comment on above: Performed By: #### U RTPCR #### [facility] [address] [place] [address] Dr. Dwight Waters RBC (U) [#/Vol] /uL Abnormal 0-2 [facility] Comment on above: Performed By: #### U RTPCR #### [facility] [address] [place] [address] Dr. Dwight Waters WBC NONE SEEN Normal NONE SEEN [facility] Comment on above: Performed By: #### U RTPCR #### [facility] [address] [place] [address] Dr. Dwight Waters K (Potassium)on 01-06-2020 Potassium [Moles/Vol] 4.4 mmol/L Normal 3.7-5.[address] [facility] Comment on above: Performed By: #### K #### [facility] [address] [place] [address] [employer] Loader: Kehinde Woodward MD Potassiumon 01-06-2020 Potassium [Moles/Vol] 4.4 mmol/L 3.7 - 5.3 mmol/L [facility] Work Phone: Hemoglobin and Hematocrit, B loodon 10-24-2019 Hematocrit (Bld) [Volume fraction] 23.6 % Low 40.7 - 50.3 % [facility], [place] Hemoglobin (Bld) [Mass/Vol] 7.3 g/dL Low 13 - 17 g/dL [place], [place] Interpretation and review of laboratory results Abnormal [place], [place] Hgb/Hcton 10-24-2019 Hematocrit (Bld) [Volume fraction] 23.6 % Low 40.7-50.[address] [facility] Comment on above: Performed By: #### H H #### [facility] [address] [place] [address] [employer]er: Kehinde Woodward MD Hemoglobin (Bld) [Mass/Vol] 7.3 g/dL Low 13.0-17.[address] [facility] Comment on above: Performed By: #### H H #### [facility] [address] [place] [address] [employer]er: Kehinde Woodward MD Hemoglobinon 08-27-2019 Hemoglobin (Bld) [Mass/Vol] 7.5 g/dL Low 13.0-17.[address] [facility] Comment on above: Performed By: #### H GB #### [facility] [address] [place] [address] [employer] Loader: Kehinde Woodward MD Hemoglobin (Bld) [Mass/Vol] 7.5 g/dL Low 13 - 17 g/dL [place], [place] Interpretation and review of laboratory results Abnormal [place] Hemoglobinon 08-08-2019 Hemoglobin (Bld) [Mass/Vol] 8.3 g/dL Low 13.0-17.[address] [facility] Comment on above: Performed By: #### H GB #### [facility] [address] [place] [address] [employer] Loader: Kehinde Woodward MD Hemoglobin (Bld) [Mass/Vol] 8.3 g/dL Low 13 - 17 g/dL [place], [place] Interpretation and review of laboratory results Abnormal [place] Hemoglobinon 08-04-2019 Hemoglobin (Bld) [Mass/Vol] 8.0 g/dL Low 13.0-17.[address] [facility] Comment on above: Performed By: #### H GB #### [facility] [address] [place] [address] [employer]er: Kehinde Woodward MD Hemoglobin A1Con 08-03-2019 HbA1c (Bld) [Mass fraction] % Low 4.8-5.[address] [facility] Comment on above: Result Comment: The ADA and AACC recommend providing the estimated average glucose result to permit better patient understanding of their HBA1c result. Performed By: #### G LYHGB #### [facility] [address] [place] [address] [employer]er: Kehinde Woodward MD Glucose [Mass/Vol] mg/dL mg/dL [place], [place] Comment on above: The ADA and AACC rec ommend providing the estimated average glucose result to permit better patient understanding of their HBA1c result. HbA1c (Bld) [Mass fraction] % Low 4.8 - 5.9 % [place], [place] Interpretation and review of laboratory results Abnormal [place] Hemoglobinon 08-01-2019 Hemoglobin (Bld) [Mass/Vol] 8.1 g/dL Low 13.0-17.[address] [facility] Comment on above: Performed By: #### H GB #### [facility] [address] [place] [address] [employer]er: Kehinde Woodward MD Hemoglobin (Bld) [Mass/Vol] 8.1 g/dL Low 13 - 17 g/dL [place], [place] Interpretation and review of laboratory results Abnormal [place], [place] Hgb/Hcton 06-10-2019 Hematocrit (Bld) [Volume fraction] 24.3 % Low 40.7-50.[address] [facility] Comment on above: Performed By: #### H H #### [facility] [address] [place] [address] [employer]er: Kehinde Woodward MD Hemoglobin (Bld) [Mass/Vol] 7.4 g/dL Low 13.0-17.[address] [facility] Comment on above: Performed By: #### H H #### [facility] [address] [place], [place] [id number] [employer]: Kehinde Woodward MD Hemoglobinon 06-01-2019 Hemoglobin (Bld) [Mass/Vol] 7.2 g/dL Low 13.0-17.[address] [facility] Comment on above: Performed By: #### H GB #### [facility] [address] [place] [id number] [employer]er: Kehinde Woodward MD K (Potassium)on 01-14-2019 Potassium [Moles/Vol] 3.6 mmol/L Low 3.7-5.[address] [facility] Comment on above: Performed By: #### K #### [facility] [address] [place] [id number] [employer]er: Kehinde Woodward MD Otheron 10-19-2018 IMPRESSION: 1. [...] by Toxicology Laboratory at [facility]. It has not been cleared or [...] Amitriptyline(50), Amphetamine(250), Atenolol(500), Barbiturates(1000), Benzoylecgonine(50), Buprenorphine(50), Bupropion(25), Caffeine(95174), Chlordiazepoxide(50), Chlorpheniramine(100), Chlorpromazine(50), Citalopram(100), Clonazepam(200), Cocaine(25), Codeine(200), [...] Code LAB, [facility] TOXICOLOGY SCREEN URINE - [facility] 10-12-2018 Drugs identified Screen Nom (U) For Medical Purposes Only, Non-forensic, screen results are presumptive. No confirmatory testing will follow. Invalid Interpretation Code LAB, [facility] Comment on above: This Liquid Chromato graphy Mass Spectrometry (LC/MS/MS) test was developed and its performance characteristics determined by Toxicology Laboratory at [facility]. It has not been cleared or [...] Amitriptyline(50), Amphetamine(250), Atenolol(500), Barbiturates(200), Benzoylecgonine(50), Buprenorphine(500), Bupropion(25), Caffeine(95289), Cannabinoids(THC)(50), Chlordiazepoxide(50), Chlorpheniramine(100), Chlorpromazine(50), Citalopram(100), Clonazepam(200), Cocaine(25), [...] 56 mm[Hg] Candie Almaguer MD Work Phone: [facility] 02-26-2024 09:07-0400 Heart rate 65 /min Candie Almaguer MD Work Phone: [facility] 02-26-2024 09:07-0400 Systolic blood pressure 113 mm[Hg] Candie Almaguer MD Work Phone: [facility] 02-26-2024 09:06-0400 Body height 170.2 cm Candie Almaguer MD Work Phone: [facility] 02-26-2024 09:06-0400 Body mass index (BMI) [Ratio] 28.9 kg/m2 Candie Almaguer MD Work Phone: [facility] 02-26-2024 09:06-0400 Body weight 83.69 kg Candie Almaguer MD Work Phone: [facility] 02-26-2024 09:06-0400 Respiratory rate 20 /min Candie Almaguer MD Work Phone: [facility] 02-26-2024 09:06-0400 SaO2% (BldA) [Mass fraction] 97 % Candie Almaguer MD Work Phone: [facility] 01-23-2024 15:04-0500 Body temperature 97.9 [...] 01-06-2024 09:04-0500 Body height 170.2 cm Zuly Aichholz USER EXPERIENCE DEVELOPER Work Phone: [facility] 01-06-2024 09:04-0500 Body mass index (BMI) [Ratio] 32.42 kg/m2 Zuly Torreslatishaz USER EXPERIENCE DEVELOPER Work Phone: [facility] 01-06-2024 09:04-0500 Body temperature 97.81 [degF] Zuly Torreslatishaz USER EXPERIENCE DEVELOPER Work Phone: [facility] 01-06-2024 09:04-0500 Body weight 93.89 kg Zuly Torreslatishaz USER EXPERIENCE DEVELOPER Work Phone: [facility] 01-06-2024 09:04-0500 Diastolic blood pressure 70 mm[Hg] Zuly Floresholz USER EXPERIENCE DEVELOPER Work Phone: [facility] 01-06-2024 09:04-0500 Heart rate 95 /min Zulytray Summerstamekaz USER EXPERIENCE DEVELOPER Work Phone: [facility] 01-06-2024 09:04-0500 Respiratory rate 17 /min Zulytray Torresholz USER EXPERIENCE DEVELOPER Work Phone: [facility] 01-06-2024 09:04-0500 SaO2% (BldA) [Mass fraction] 99 % Zulytray Torresholz USER EXPERIENCE DEVELOPER Work Phone: [facility] 01-06-2024 09:04-0500 Systolic blood pressure 138 mm[Hg] Zuly Torreslatishaz USER EXPERIENCE DEVELOPER Work Phone: [facility] 09-11-2023 10:31-0400 Body temperature 97.81 [...] 31.99 kg/m2 Steve Yeison MBBS Work Phone: [facility] 09-10-2023 15:50-0400 Body weight 92.67 kg Steve Yeison MBBS Work Phone: 5(085)392-102070 [address] 09-02-2023 07:32-0400 Body height 170.2 cm Steve Yeison MBBS Work Phone: [facility] 08-28-2023 13:33-0400 Body height 170.2 cm Steve Yeison MBBS Work Phone: [facility] 08-28-2023 13:33-0400 Body mass index (BMI) [Ratio] 32.12 kg/m2 Steve Yeison MBBS Work Phone: [facility] 08-28-2023 13:33-0400 Body temperature 97.3 [degF] Steve Yeison MBBS Work Phone: [facility] 08-28-2023 13:33-0400 Body weight 93.03 kg Steve Yeison MBBS Work Phone: [facility] 08-28-2023 13:33-0400 Diastolic blood pressure 41 mm[Hg] Steve Yeison MBBS Work Phone: [facility] 08-28-2023 13:33-0400 Heart rate 116 /min Steve Latham MBBS Work Phone: [facility] 08-28-2023 13:33-0400 Systolic blood pressure 106 mm[Hg] Steve Latham MBBS Work Phone: [facility] 06-12-2023 14:50-0400 Body mass index (BMI) [Ratio] 33.8 kg/m2 Rebeca Gutierrez SEAM HAMMERER-CURRENCY COUNTER Work Phone: [facility] 06-12-2023 14:50-0400 Body temperature 97.3 [degF] Rebeca Gutierrez SEAM HAMMERER-CURRENCY COUNTER Work Phone: [facility] 06-12-2023 14:50-0400 Body weight 97.89 kg Rebeca Gutierrez SEAM HAMMERER-CURRENCY COUNTER Work Phone: [facility] 06-12-2023 14:50-0400 Diastolic blood pressure 77 mm[Hg] Rebeca Gutierrez SEAM HAMMERER-CURRENCY COUNTER Work Phone: [facility] 06-12-2023 14:50-0400 Heart rate 76 /min Rebeca Gutierrez SEAM HAMMERER-CURRENCY COUNTER Work Phone: [facility] 06-12-2023 14:50-0400 Systolic blood pressure 146 mm[Hg] Rebeca Gutierrez SEAM HAMMERER-CURRENCY COUNTER Work Phone: [facility] 01-16-2023 08:57-0500 Body height 170.2 cm [facility] Work Phone: [facility] 01-16-2023 08:57-0500 Body mass index (BMI) [Ratio] 33.66 kg/m2 [facility] Work Phone: [facility] 01-16-2023 08:57-0500 Body temperature 97.3 [degF] [facility] Work Phone: [facility] 01-16-2023 08:57-0500 Body weight 97.48 kg [facility] Work Phone: [facility] 01-16-2023 08:57-0500 Diastolic blood pressure 75 mm[Hg] [facility] Work Phone: [facility] 01-16-2023 08:57-0500 Heart rate 76 /min [facility] Work Phone: [facility] 01-16-2023 08:57-0500 Systolic blood pressure 142 mm[Hg] [facility] Work Phone: [facility] [...] 76 mm[Hg] Ryan Yepez MD Work Phone: 3(156)222-686120 [address] 07-07-2022 13:48-0400 Heart rate 82 /min Ryan Yepez MD Work Phone: 4(964)387-819261 [place] [address] 07-07-2022 13:48-0400 SaO2% (BldA) [Mass fraction] 96 % Ryan Yepez MD Work Phone: 2(675)663-217461 [place] [address] 07-07-2022 13:48-0400 Systolic blood pressure 141 mm[Hg] Ryan Yepez MD Work Phone: 7(002)485-847061 [place] [address] 06-27-2022 13:32-0400 Body height 170.2 cm Ryan Yepez MD Work Phone: 9(484)839-553161 [place] [address] 06-27-2022 13:32-0400 Body mass index (BMI) [Ratio] 34.24 kg/m2 Ryan Yepez MD Work Phone: 9(456)322-228861 [place] [address] 06-27-2022 13:32-0400 Body temperature 98.6 [degF] Ryan Yepez MD Work Phone: 0(964)738-890861 [place] [address] 06-27-2022 13:32-0400 Body weight 99.16 kg Ryan Yepez MD Work Phone: 8(072)651-685961 [place] [address] 06-27-2022 13:32-0400 Diastolic blood pressure 78 mm[Hg] Ryan Yepez MD Work Phone: 3(485)593-883720 [address] 06-27-2022 13:32-0400 Heart rate 77 /min Ryan Yepez MD Work Phone: 5(609)318-681220 [address] 06-27-2022 13:32-0400 SaO2% (BldA) [Mass fraction] 95 % Ryan Yepez MD Work Phone: [facility] 06-27-2022 13:32-0400 Systolic blood pressure [...] [Mass fraction] 97 % Renaanalilia Brewster RN [facility] [...] 06-12-2022 14:23-0400 Diastolic blood pressure 66 mm[Hg] Stevemassiel Farrari MBBS Work Phone: [facility] 06-12-2022 14:23-0400 Heart rate 63 /min Stevemassiel Farrari MBBS Work Phone: [facility] 06-12-2022 14:23-0400 Systolic blood pressure 133 mm[Hg] Stevemassiel Farrari MBBS Work Phone: [facility] 05-20-2022 15:21-0400 Body temperature 97.9 [degF] Gian Villatoro MD Work Phone: 4(583)710-447094 [place] [address] 05-20-2022 15:21-0400 Diastolic blood pressure 64 mm[Hg] Gian Villatoro MD Work Phone: 6(936)064-809194 [place] [address] 05-20-2022 15:21-0400 Heart rate 55 /min Gian Villatoro MD Work Phone: 0(535)476-115094 [place] [address] 05-20-2022 15:21-0400 Respiratory rate 15 /min Gian Villatoro MD Work Phone: 1(187)778-400194 [place] [address] 05-20-2022 15:21-0400 SaO2% (BldA) [Mass fraction] 95 % Gian Villatoro MD Work Phone: 8(491)450-564794 [place] [address] 05-20-2022 15:21-0400 Systolic blood pressure 145 mm[Hg] Gian Villatoro MD Work Phone: 8(587)963-455394 [place] [address] 05-19-2022 12:15-0400 Body mass index (BMI) [Ratio] 35.87 kg/m2 Gian Villatoro MD Work Phone: 9(306)696-176394 [place] [address] 05-19-2022 12:15-0400 Body weight 103.92 kg Gian Villatoro MD Work Phone: 0(454)319-380394 [place] [address] Comment on above: standing scale 05-16-2022 16:19-0400 Body height 170.2 cm Gian Villatoro MD Work Phone: [facility] 10-19-2018 08:44-0500 BMI (Body Mass Index) 26.58 kg/m2 [facility] Work Phone: 10-19-2018 08:44-0500 BP Diastolic 76 mm[Hg] [facility] Work Phone: 10-19-2018 08:44-0500 BP Systolic 144 mm[Hg] [facility] Work Phone: 10-19-2018 08:44-0500 Height 172.7 cm [facility] Work Phone: 10-19-2018 08:44-0500 Pulse (Heart Rate) 92 /min [facility] Work Phone: 10-19-2018 08:44-0500 Pulse Oximetry 99 % [facility] Work Phone: 10-19-2018 08:44-0500 Respiratory Rate 16 /min [facility] Work Phone: 10-19-2018 08:44-0500 Weight 79.29 kg [facility] Work Phone: 10-12-2018 09:50-0500 BMI (Body Mass Index) 27.24 kg/m2 [facility] Work Phone: 10-12-2018 09:50-0500 Body Temperature 98.6 [degF] [facility] Work Phone: 10-12-2018 09:50-0500 BP Diastolic 80 mm[Hg] [facility] Work Phone: 10-12-2018 09:50-0500 BP Systolic 157 mm[Hg] [facility] Work Phone: 10-12-2018 09:50-0500 Height 169.5 cm [facility] Work Phone: 10-12-2018 09:50-0500 Pulse (Heart Rate) 94 /min [facility] Work Phone: 10-12-2018 09:50-0500 Weight 78.29 kg [facility] Work Phone: Encounters Encounter Date Encounter Type Care Provider Facility Start: 05-13-2024 End: 05-13-2024 ambulatory [facility] Start: 04-18-2024 End: 04-18-2024 ambulatory ZULY KIANA Not Available Start: 03-24-2024 End: 03-24-2024 Patient encounter procedure Angel Carpio RPh,PharmD [facility] Start: 03-24-2024 End: 03-24-2024 ambulatory Angel Carpio RPh,PharmD Pharm[facility] Outpatient [facility] [place] Start: 03-22-2024 End: 03-22-2024 ambulatory JOHNNA BRINK Not Available Start: 03-17-2024 End: 03-17-2024 ambulatory JOHNNA BRINK Not Available Start: 03-14-2024 End: 03-14-2024 ambulatory FIDELINA SANCHEZ Not Available Start: 03-10-2024 End: 03-10-2024 ambulatory JOHNNA BRINK Not Available Start: 03-08-2024 End: 03-08-2024 ambulatory JOHNNA BRINK Not Available Start: 03-03-2024 End: 03-03-2024 ambulatory JOHNNA BRINK Not Available Start: 03-02-2024 End: 03-02-2024 ambulatory Meka Alexander [facility] Pharm[facility] Out[facility] Start: 03-02-2024 End: 03-02-2024 Patient encounter procedure Meka Alexander [facility]patient [facility] Start: 03-01-2024 ambulatory ZULY BRUNO Facility: [facility] Start: 03-01-2024 End: 03-01-2024 ambulatory JOHNNA MIYA Not Available Start: 02-26-2024 [facility] Start: 02-26-2024 End: 02-26-2024 Office outpatient new 30 minutes Candie Almaguer MD Work Phone: [employer] [facility] Comment on above: Heart failure, diast olic, acute (Primary Dx) Start: 02-26-2024 [facility] Start: 02-25-2024 End: 02-25-2024 ambulatory FIDELINA DANIEL Not Available Start: 02-23-2024 End: 02-23-2024 ambulatory PALMA PALACIOS Not Available Start: 02-11-2024 End: 02-11-2024 [facility] Start: 01-16-2024 Encounter for other preprocedural examination KELVIN PACHECO [facility] Start: 01-16-2024 End: 01-23-2024 Evaluation and management of inpatient Kevin Prince MD Work Phone: [facility] Comment on above: Pleural effusion on right Start: 01-16-2024 End: 01-23-2024 Patient encounter status Kevin Prince MD Work Phone: [facility] Work Phone: Start: 01-12-2024 End: 01-12-2024 ambulatory Angel Fete RPh,PharmD Pharm[facility] Outpatient [facility] [place] Start: 01-12-2024 End: 01-12-2024 Patient encounter procedure Angel Fete RPh,PharmD [facility]patient [facility] [place] Start: 01-08-2024 Clinisync Result Encounter Generic External Data Provider [facility] External Department Unsolicited Start: 01-08-2024 Clinisync Result Encounter Generic External Data Provider [facility] External Department Unsolicited Start: 01-06-2024 End: 01-06-2024 ambulatory ZULY KRISTOPHERHHOLZ Not Available Start: 01-06-2024 End: 01-06-2024 Office outpatient visit 25 minutes Zuly Kiana USER EXPERIENCE DEVELOPER Work Phone: [facility] Comment on above: Bilateral lower extr emity edema (Primary Dx); 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); Atherosclerosis 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); Obesity (BMI 30-39.9); DARLENE (obstructive sleep apnea); Tremor; Immunocompromised (CMS/HCC); Primary hypertension ([facility] Shortness of breath Start: 01-01-2024 Clinisync Result Encounter Generic External Data Provider [facility] External Department Unsolicited Start: 01-01-2024 Clinisync Result Encounter Generic External Data Provider [facility] External Department Unsolicited Start: 11-03-2023 End: 11-03-2023 ambulatory ZULY FLORESHOLZ Not Available Start: 10-06-2023 ambulatory Angel Calee RP,PharmD Pharm[facility] Outpatient [facility] [place] Start: 10-06-2023 Patient encounter procedure Angel Fete RPh,PharmD [facility] Start: 09-29-2023 ambulatory ZULY KIANA Facility: [facility] Start: 09-23-2023 ambulatory ZULY BRUNO Facility: [facility] Start: 09-15-2023 [facility]ulatory [facility] Start: 08-28-2023 End: 09-11-2023 Evaluation and management of inpatient Steve LEIGH Work Phone: [facility] Start: 08-28-2023 End: 08-28-2023 Office outpatient visit 25 minutes Steve LEIGH Work Phone: [facility] Comment on above: Immunosuppressed sta tus (Primary Dx); Kidney replaced by transplant; Aftercare following organ transplant; High risk medication use; Other general symptoms and signs; Abnormal blood chemistry; Hypertension secondary to other renal disorders Start: 08-28-2023 ambulatory STEVE LATHAM Facility:[facility] Start: 08-19-2023 ambulatory Meka rueda [facility] Pharmacy Outpatient RX [place] Start: 08-19-2023 Patient encounter procedure Meka Munoz [facility] Pharm[facility] Outpatient [facility] [place] Start: 06-12-2023 End: 06-12-2023 Office outpatient visit 25 minutes Steve Latham MBBS Work Phone: [facility] Comment on above: 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) Start: 06-12-2023 ambulatory SELF SELF Facility:[facility] Start: 06-10-2023 ambulatory Maren Bar RPh,PharmD [facility]patient [facility] [place] Start: 06-10-2023 Patient encounter procedure Maren Hayeney RPh,PharmD Pharm[facility] Outpatient [facility] [place] Start: 05-26-2023 ambulatory ZULY KIANA Facility: [facility] Start: 04-28-2023 End: 04-29-[address] DOCTOR EVANS Facility:[facility] Start: 03-12-2023 ambulatory Angel Fete RPh,PharmD [facility] [place] Start: 03-12-2023 Patient encounter procedure Angel Fete RPh,PharmD [facility] [place] Start: 03-10-2023 ambulatory Angel Fete RPh,PharmD [facility] [place] Start: 03-10-2023 Patient encounter procedure Angel Fete RPh,PharmD [facility] Start: 03-02-2023 End: 03-03-[address] DOCTOR EVANS Facility:[facility] Start: 01-16-2023 End: 01-16-2023 Office outpatient visit 25 minutes Daisha Max DO Work Phone: [facility] Comment on above: Abnormal blood chemi stry (Primary Dx); Liver transplant recipient; Kidney replaced by transplant; Immunosuppressed status; Aftercare following organ transplant Start: 12-29-2022 End: 12-30-[address] DOCTOR EVANS Facility:[facility] Start: 11-04-2022 End: 11-05-[address] DOCTOR EVANS Facility:[facility] Start: 09-15-2022 End: 09-16-[address] DOCTOR EVANS Facility:[facility] Start: 09-10-2022 End: 09-10-2022 Office outpatient visit 25 minutes Ryan Yepez MD Work Phone: [facility] [place] Comment on above: BPH with obstruction /lower urinary tract symptoms (Primary Dx); Encounter for screening for malignant neoplasm of prostate Start: 08-28-2022 End: 08-29-2022 ambulatory ROB BRUNO Facility:[facility] Start: 08-14-2022 End: 08-15-[address] DOCTOR EVANS Facility:[facility] Start: 07-07-2022 End: 07-07-2022 Patient encounter procedure Ryan Yepez MD Work Phone: [facility] Comment on above: Other hydronephrosis (Primary Dx); [...] MD Work Phone: [facility] Comment on above: Other hydronephrosis (Primary Dx) [...] Phone: [facility] Comment on above: Immunosuppressed sta tus [...] of inpatient Gian Villatoro MD Work Phone: [facility] Comment on above: AFYE (acute kidney in jury) Start: 05-15-2022 End: 05-15-[address] GEORGE LAWRENCE Facility:[facility] Start: 05-11-2022 End: 05-11-[address] GEORGE LAWRENCE Facility:[facility] Start: 03-14-2022 ambulatory Comfort Rivera [facility] Work Phone: Pharm[facility] Outpatient [facility] Start: 03-14-2022 Patient encounter procedure Comfort Rivera [facility] Work Phone: Pharmacy Outpatient [facility] [place] Start: 06-14-2021 End: 06-14-2021 ambulatory Comfort Rivera [facility] Work Phone: [facility] Start: 06-14-2021 Patient encounter procedure Comfort Rivera [facility] Work Phone: [facility] Start: 01-20-2020 End: 01-27-2020 Patient encounter procedure PEPE CASE Facility:[facility] Start: 01-06-2020 End: 01-07-2020 Patient encounter procedure [facility] Start: 01-06-2020 End: 01-06-2020 Subsequent hospital visit by physician [facility] Start: 10-24-2019 End: 10-25-2019 Patient encounter procedure TANA CAMPA [facility] Start: 10-24-2019 End: 10-24-2019 Subsequent hospital visit by physician [facility] Start: 08-27-2019 End: 08-28-2019 Patient encounter procedure RENA GUDINO [facility] Start: 08-27-2019 End: 08-27-2019 Subsequent hospital visit by physician [facility] Start: 08-08-2019 End: 08-09-2019 [facility] Start: 08-08-2019 End: 08-08-2019 Subsequent hospital visit by physician [facility] Start: 08-03-2019 End: 08-04-2019 [facility] Start: 08-03-2019 End: 08-03-2019 Subsequent hospital visit by physician [facility] Start: 08-01-2019 End: 08-02-2019 [facility] Start: 08-01-2019 End: 08-01-2019 Subsequent hospital visit by physician [facility] Start: 06-10-2019 End: 06-11-2019 Patient encounter procedure RENA GUDINO [facility] Start: 06-01-2019 End: 06-02-2019 Patient encounter procedure RENA GUDINO [facility] Start: 01-14-2019 End: 01-15-2019 Patient encounter procedure RENA GUDINO [facility] Start: 11-17-2018 End: 11-17-2018 [facility] on [...] Start: 10-13-2018 End: 10-13-2018 Patient encounter procedure [facility] Comment on above: Reschedule Outside Medical Allan rds Request Start: 10-12-2018 End: 10-12-2018 Patient encounter procedure Sophie Cary [facility] Pre Transplant Office Comment on above: Alcoholic cirrhosis, unspecified whether ascites present (Primary Dx); Pre-transplant evaluation for liver transplant Start: 10-12-2018 End: 10-12-2018 Office outpatient new 60 minutes Alfredito Restrepo Work Phone: [facility] Pre Transplant Office Comment on above: Alcoholic cirrhosis, unspecified whether ascites present; ESRD (end stage renal disease) on dialysis; Pre-transplant evaluation for liver transplant Start: 10-06-2018 End: 10-06-2018 Patient encounter procedure Yovani Orr Work Phone: Department of Radiology Comment on above: Canceled (Insurance Company Redirected Pt) Start: 10-05-2018 Patient encounter status Comfort Rivera [facility] Work Phone: [facility] [...] Work Phone: Start: 01-22-2024 Antibody screen Nikunj Prince MD Work Phone: Start: 01-22-2024 Antibody screen ZULY CRISTINA Comment on above: Performed By: #### X M ####[facility] ([facility])[address] [place] [address] Start: 01-22-2024 Assay of magnesium Just in Jake LUZ Work Phone: Start: 01-22-2024 Drug screen quantita tive tacrolimus Arelis Mera MD Work Phone: Start: 01-21-2024 Assay of magnesium Just in Jake LUZ Work Phone: Start: 01-21-2024 Drug screen quantita tive tacrolimus Arelis Mera MD Work Phone: Start: 01-20-2024 Right heart cath o2 saturation & cardiac output LU Jain MD Work Phone: Start: 2 End: 01-20-2024 Blood count hemoglobin LU Jain MD Work Phone: Start: 01-20-2024 Cardiac catheterization LU Jain MD Work Phone: Start: 01-20-2024 Assay of magnesium Just in Jake LUZ Work Phone: Start: 01-20-2024 Hepatic function panel Arelis Mera MD Work Phone: Start: 01-20-2024 ITRACONAZOLE LEVEL Jennifer norbert Ortiz Alarcon [facility] Work Phone: Start: 01-20-2024 Oscillating positive expiratory [...] nos quantifica tion each organism Fidelina Alarcon [facility] Work Phone: Start: 01-18-2024 Echocardiography ZULY VANG [...] mult step me thod nos each organism rAelis Mera MD Work Phone: Start: 01-16-2024 Radiologic [...] AURIS SCREEN BY PCR Carol Ann Capps SEAM HAMMERER-STEEL TURNER Work Phone: Start: 01-08-2024 ALL CBC WITH [...] AURIS SCREEN BY PCR Carol Ann Capps SEAM HAMMERER-STEEL TURNER Work Phone: Start: 08-28-2023 CBC AND ELECTRONIC [...] above: Performed By: #### C MP #### [facility] [address] [address] [address] Dwight Waters Start: 07-07-2022 Rmvl nfros [...] recipient S/P liver trans plant Comfort Rivera [facility] Work Phone: Start: 04-08-2020 H/O: liver recipient Liver tra nsplant recipient Comfort Rivera [facility] Work Phone: Start: 01-06-2020 Potassium serum plasma/whole blood ROB PATINO Start: 01-06-2020 Potassium serum plasma/whole blood Rena Risgrace Work Phone: Start: 10-24-2019 HEMOGLOBIN AND HEMAT [...] De ceased-donor kidney transplant recipient Comfort Rivera [facility] Work Phone: Start: 06-10-2019 HEMOGLOBIN AND HEMAT OCRIT, BLOOD ROB KASMANI Start: 06-01-2019 Blood count hemoglobin ROB KASMANI Start: 03-22-2019 Lipid 1996 panel - S fabricio or Plasma Comfort Rivera [facility] Work Phone: Start: 01-14-2019 Potassium serum plasma/whole [...] 09-20-2029 Screening for malignant neoplasm of colon [facility] Start: 03-28-2025 Potassium [Moles/volume] in Serum or Plasma POTASSIUM [facility] Start: 03-21-2025 Potassium [Moles/volume] in Serum or Plasma POTASSIUM [facility] Start: 02-28-2025 Potassium [Moles/volume] in Serum or Plasma POTASSIUM [facility] Start: 01-23-2025 Potassium [Moles/volume] in Serum or Plasma POTASSIUM [facility] Start: 08-31-2024 Screening for malignant neoplasm of lung [facility] Start: 06-17-2024 End: 06-17-2024 ambulatory [facility] Start: 06-17-2024 End: 06-17-2024 Patient encounter procedure [facility] Start: 03-22-2024 Fasting lipid profile LIPID SCREENING [facility] Start: 03-22-2024 Lipid panel [facility] Start: 02-26-2024 End: 02-26-2024 Patient encounter procedure 02/26/2024 9:30 AM EDT Office Visit [employer] [facility] [employer] [facility] Dal[facility] [address] [place] [address] Candie Almaguer MD [address] [place] [phone] [employer] [facility] Conner [facility] Start: 02-11-2024 End: 02-11-2024 Patient encounter procedure 02/11/2024 10:30 AM EDT Office Visit [facility] [address] [place] [address] Zuly Bruno, BA [address] [place] [address] [facility]O BLUNT Start: 02-09-2024 End: 02-09-2024 Telemedicine consultation with patient 02/09/2024 3:30 PM EDT Telemedicine [facility] [address] [phone] Hakeem Alamo MD [address] [place] [address] [id number] [facility] Start: 01-15-2024 End: 01-15-2024 ambulatory [facility] Start: 01-15-2024 End: 01-15-2024 Patient encounter procedure [facility] Start: 01-06-2024 End: 01-06-2026 Echocardiogram 2D complete Echocardiogram 2D complete Echocardiography Routine DARLENE (obstructive sleep apnea) Primary hypertension (CMS/HCC) Bilateral lower extremity edema Shortness of breath Expected: 01/06/2024 (Approximate), Expires: 01/06/2026 [facility] Work Phone: Comment on above: Expected: 01/06/2024 (Approximate), Expi res: 01/06/2026 Start: 01-06-2024 End: 01-06-2024 Patient encounter procedure 01/06/2024 9:00 AM EST Office Visit [facility] [address] [place] [address] Zuly Bruno, BA [address] [place] [id number] [facility] Start: 12-08-2023 End: 09-07-2024 [...] 4:00 PM EDT Telemedicine Infectious Diseases Care [facility] Outpatient Care [address] [facility] [address] [place] [address] Hakeem Alamo MD [address] [facility] [address] [place], [place] [id number] Infectious Diseases Care [facility] [...] MBBS [address] [place] [address] [facility] Transplant [facility] Start: 03-11-2023 End: 03-11-2023 Telemedicine consultation with patient 03/11/2023 Telemedicine Urology Ryan Yepez MD [address] [facility] [address] [place] [address] [facility] Start: 01-16-2023 End: 01-16-2023 Patient encounter procedure 01/16/2023 Office Visit Transplant Surgery [facility] Transplant [facility] Start: 10-31-2022 End: 10-31-2022 Patient encounter procedure 10/31/2022 Office Visit Transplant Surgery Steve Latham, LU [address] [place] [address] [facility] Start: 09-10-2022 End: 09-10-2023 PSA screening PSA, SCREENING Lab Routine BPH with obstruction/lower urinary tract symptoms Encounter for screening for malignant neoplasm of prostate Expected: 09/10/2022 (Approximate), Expires: 09/10/2023 [facility] Comment on above: Expected: 09/10/2022 (Approximate), Expi res: 09/10/2023 Start: 08-11-2022 End: 08-11-2022 Patient encounter procedure 08/11/2022 Office Visit Urology Ryan Yepez MD [address] [facility] [address] [place] [id number] [facility] Start: 07-31-2022 Influenza vaccination [facility] Start: 07-07-2022 End: 07-07-2022 Patient encounter procedure 07/07/2022 Office Visit Ryan Webster MD [address] [facility] [address] [place] [address] [facility] Start: 07-07-2022 End: 07-07-2023 FLUORO IMAGING FOR UROLOGY [facility] Comment on above: Expected: 07/07/2022, Expires: 3 1 Occurrences starti ng 07/07/2022 until 07/07/2022 Start: 06-27-2022 End: 06-27-2022 Patient encounter procedure 06/27/2022 Office Visit Urology Ryan Yepez MD [address] [facility] [address] [place] [address] [facility] Start: 06-27-2022 End: 06-27-2023 Basic metabolic 2000 panel - Serum or Plasma BASIC METABOLIC PANEL Lab Routine Other hydronephrosis Expected: 06/27/2022, Expires: 06/27/2023 [facility] Comment on above: Expected: 06/27/2022, Expires: 3 Start: 06-27-2022 End: 06-27-2022 Patient encounter procedure 06/27/2022 Appointment Computerized Tomography Scan Ryan Yepez MD [address] [facility] [address] [place] [address] Department of Radiology Start: 06-15-2022 End: 05-16-2023 CT Abdomen and Pelvis WO contrast CT ABDOMEN/PELVIS WITHOUT CONTRAST Imaging Routine FAYE (acute kidney injury) Expected: 06/15/2022 (Approximate), Expires: 05/16/2023 [facility] Work Phone: Comment on above: Expected: 06/15/2022 (Approximate), Expi res: 05/16/2023 Start: 06-12-2022 End: 06-12-2022 Patient encounter procedure 06/12/2022 Office Visit Transplant Surgery Steve Ltaham MBBS [address] [place] [address] [facility] Start: 06-11-2022 End: 06-11-2023 BK VIRUS [...] LU [address] [place] [address] [facility] Start: 07-31-2021 Influenza vaccination INFLUENZA VACCINE (#1) [facility] Start: 07-26-2021 End: 07-26-2021 Patient encounter procedure 07/26/2021 Office Visit Transplant Surgery [facility] Start: 2021 Prostate specific antigen measurement Louis [...] Start: 07-31-2019 Influenza vaccination Flu vaccine (#1) [place], [place] Start: 05-22-2019 Annual Wellness Visit (AWV) Annual Wellness Visit (AWV) [place] Start: 04-18-2019 End: 10-19-2019 Ultrasonography of abdomen US ABDOMEN RUQ/LIVER/GB Routine Cirrhosis of liver without ascites, unspecified hepatic cirrhosis type Expected: 04/18/2019 (Approximate), Expires: 10/19/2019 [facility] Work Phone: Comment on above: Expected: 04/18/2019 (Approximate), Expi res: 10/19/2019 Start: 01-25-2019 End: 01-25-2019 Ambulatory 01/25/2019 Office Visit Gastroenterology Christin Elizabeth, SEAM HAMMERER-CURRENCY COUNTER [address] [place] [address] Division of Gastroenterology and Hepatology Gavin Start: 11-19-2018 End: 11-19-2018 Ambulatory 11/19/2018 Appointment [facility]monary [facility] Start: 11-19-2018 End: 11-19-2018 Ambulatory [facility] Start: 10-19-2018 End: 10-19-2018 Ambulatory Ultrasound [...] Start: 07-31-2018 Influenza vaccination INFLUENZA VACCINE (#1) [facility] Work Phone: Start: 2011 Fasting lipid profile LIPID SCREENING [facility] Work Phone: Start: 2011 Lipid screen Lipid screen [facility], [place] Start: 1990 DTaP/Tdap/Td vaccine (1 - Tdap) DTaP/Tdap/Td vaccine (1 - Tdap) [place] Start: 1990 Hepatitis B vaccination HEP B VACCINE (1 of 3 - 19+ 3-dose series) [facility] Start: 1990 Hepatitis B Vaccine (1 of 3 - Risk Recombivax 3-dose series) Hepatitis B Vaccine (1 of 3 - Risk Recombivax 3-dose series) [place] Start: 1990 Third diphtheria, tetanus and acellular pertussis (DTaP) vaccination [facility] Start: 1990 Zoster vaccine hzv live for subcutaneous use ZOSTER (SHINGLES) VACCINE (1 of 2) [facility] Start: 1990 [facility] Start: 1989 Tetanus vaccination TETANUS [facility] Start: 1986 HIV screen HIV screen [place], [place] Start: 02-17-1984 HIV screening HIV SCREENING DISCUSSION [facility] Work Phone: Start: 1983 COVID-19 VACCINE (1) COVID-19 VACCINE (1) [facility] Start: 1982 DTaP/Tdap/Td vaccine (1 - Tdap) DTaP/Tdap/Td vaccine (1 - Tdap) [place] Start: 1977 Pneumococcal 0-64 years Vaccine (1 of 3 - PCV13) Pneumococcal 0-64 years Vaccine (1 of 3 - PCV13) [place] Start: 1977 PNEUMOCOCCAL VACCINE SERIES (1 - PCV) PNEUMOCOCCAL VACCINE SERIES (1 - PCV) [facility] Start: 1977 PNEUMOCOCCAL VACCINE SERIES (1 of 2 - PCV) PNEUMOCOCCAL VACCINE SERIES (1 of 2 - PCV) [facility] Start: 1977 [facility] Start: 02-17-1976 COVID-19 VACCINE (#1) COVID-19 VACCINE (#1) [facility] Start: 02-17-1976 [facility] Start: 1971 COVID-19 VACCINE (#1) COVID-19 VACCINE (#1) [facility] Start: 1971 Hepatitis B vaccination HEP B VACCINE (1 of 3 - 3-dose series) [facility] Start: 1971 Medicare Annual Wellness (AWV) Medicare Annual Wellness (AWV) [facility] Start: 1971 Screening for malignant neoplasm of colon [facility] Start: 1971 Tetanus vaccination [facility] [...] EDT [facility] [place] POST VOID RESIDUAL [place] POST VO ID RESIDUAL [place] - OFFICE PERFORMED Routine BPH with obstruction/lower [...] virus vacc ine, unspecified formulation Generic Provider [facility] 11-03-2023 Moderna SARS-CoV-2 50mcg/0.5mL Booster Generic Provider [facility] Payers Date Payer Category Payer Unknown [id number] 2019 Unknown NURSING HOMES [facility] HOME [id number] 2019-Present [id number] 2018 Medicaid MEDICAID [facility] DEPT OF JOB xxxxxxxxxxxx 2018-Present [phone] [address] [place] [address] xxxxxxxxxxxx [id number] .[id number] 2018 Medicaid MEDICAID MEDICAI D [id number] 2018-Present [address] [place] [address] [id number] [id number].3 .[id number] 2018 Medicaid [id number]. 1.13.172.2.7.3 .[id number] 2018 Medicare MEDICARE MEDICAR E PART A AND B xxxxxxxxxxx 2018-Present [phone] [address] [address] [place] [address] xxxxxxxxxxx [id number] .229349.315 2018 Medicare [id number] 2018 Medicare MEDICARE MEDICAR E A AND B [id number] 2018-Present [address] [place] [address] [id number] [id number] .339842.315 2018 Medicare [id number]. 1.13.172.2.7.3 .839198.315 1971 Unknown [id number] 2.16.840.1.362334.3.579.2.173 1971 Unknown [id number] 2.16.840.1.228853.3.579.2.173 1971 Unknown [id number] 2.16.840.1.461332.3.579.2.173 1971 Unknown [id number] 2.16.840.1.637538.3.579.2.173 1971 Unknown [id number] 2.16.840.1.492714.3.579.2.173 1971 Unknown [id number] 2.16.840.1.142802.3.579.2.173 1971 Unknown [id number] 2.16.840.1.628673.3.579.2.173 1971 Unknown [id number] 2.16.840.1.953180.3.579.2.173 1971 Unknown [id number] 2.16.840.1.206731.3.579.2.647 1971 Unknown [id number] 2.16.840.1.119382.3.579.2.593 1971 Unknown [id number] 2.16.840.1.600403.3.579.2.593 1971 Unknown [id number] 2.16.840.1.621673.3.579.2.593 1971 Unknown [id number] 2.16.840.1.166225.3.579.2.593 1971 Unknown [id number] 2.16.840.1.068828.3.579.2.593 1971 Unknown [id number] 2.16.840.1.541915.3.579.2.593 1971 Unknown [id number] 2.16.840.1.138531.3.579.2.593 1971 Unknown [id number] 2.16.840.1.007779.3.579.2.593 1971 Unknown [id number] 2.16.840.1.833202.3.579.2.593 1971 Unknown [id number] 2.16.840.1.980209.3.579.2.593 1971 Unknown [id number] 2.16.840.1.822805.3.579.2.593 1971 Unknown [id number] 2.16.840.1.509691.3.579.2.593 1971 Unknown [id number] 2.16.840.1.507785.3.579.2.593 1971 Unknown [id number] 2.16.840.1.738710.3.579.2.593 1971 Unknown [id number] 2.16.840.1.721863.3.579.2.593 1971 Unknown [id number] 2.16.840.1.544301.3.579.2.125 9 1971 Unknown [id number] 2.16.840.1.092580.3.579.2.125 9 1971 Unknown [id number] 2.16.840.1.359944.3.579.2.125 9 1971 Unknown [id number] 2.16.840.1.662370.3.579.2.125 9 1971 Unknown [id number] 2.16.840.1.437007.3.579.2.125 9 1971 Unknown [id number] 2.16.840.1.654799.3.579.2.125 9 1971 Unknown [id number] 2.16.840.1.038018.3.579.2.125 9 1971 Unknown [id number] 2.16.840.1.796475.3.579.2.125 9 1971 Unknown [id number] 2.16.840.1.258364.3.579.2.125 9 1971 Unknown [id number] 2.16.840.1.651060.3.579.2.125 9 1971 Unknown [id number] 2.16.840.1.399942.3.579.2.125 9 1971 Unknown [id number] 2.16.840.1.586830.3.579.2.125 9 1971 Unknown [id number] 2.16.840.1.907001.3.579.2.125 9 1971 Unknown [id number] 2.16.840.1.384724.3.579.2.125 9 1971 Unknown [id number] 2.16.840.1.455857.3.579.2.594 1971 Unknown [id number] 2.16840.1.327147.3.579.2.594 1971 Unknown [id number] 2.840.1.392408.3.579.2.594 1971 Unknown [id number] 2.16.840.1.433880.3.579.2.594 1971 Unknown [id number] 2.16.840.1.687444.3.579.2.594 1971 Unknown [id number] 2.16.840.1.074950.3.579.2.594 1971 Unknown [id number] .840.1.963551.3.579.2.594 1971 Unknown [id number] 2.16.840.1.511440.3.579.2.594 1971 Unknown [id number] 2.16.840.1.426172.3.579.2.594 1971 Unknown [id number] 2.16840.1.199108.3.579.2.594 1971 Unknown [id number] 2.16840.1.797369.3.579.2.594 1971 Unknown [id number] 2.16.840.1.196997.3.579.2.594 1959 Medicaid [id number] 1959 Medicare [id number] Social History Date Type Detail Facility Start: 07-19-2018 End: 10-19-2018 Tobacco smoking status NHIS Former smoker [facility] Start: 07-19-1988 End: 05-14-2018 History of tobacco use Current smoker [facility] Work Phone: Start: 07-19-1988 End: 05-14-2018 History of tobacco use Cigarette Smoker [facility] Work Phone: Start: 10-19-2018 End: 03-24-2024 Cigarettes smoked current (pack per day) - Reported [facility] End: 07-19-1994 History of tobacco use Chews Tobacco [facility] Work Phone: Start: 1970 Sex Assigned At Not on file [facility] Work Phone: Start: 11-03-2018 Alcohol intake Current non-drinker of alcohol (finding) [place] Start: 06-22-2018 Alcohol Comment Hx of alcoholism [place] Start: 11-03-2018 End: 03-24-2024 Alcohol intake No [facility] Start: 07-19-2018 Tobacco use and exposure Former user [facility] Start: 09-06-2020 End: 03-24-2024 Alcohol intake Ex-drinker (finding) [facility] Start: 07-19-2018 Alcohol Comment stopped 05/14/2018 [facility] Start: 05-05-2022 End: 01-16-2023 Exposure to SARS-CoV-2 (event) Not sure [facility] Start: 07-07-2018 Gender identity Identifies as male gender (finding) [facility] Start: 01-16-2022 Sexual orientation Heterosexual (finding) [facility] Start: 12-05-2023 Tobacco use and exposure Smokeless tobacco non-user [...] Dates [id number] Start: 05-23-2020 [id number] Start: 04-12-2020 [id number], [id number] [facility] Start: 05-17-2022 Comment on above: Description: Implant time-out completed by intra-procedural staff including this RN, geology technician, and performing physician. The following was [...] Melody Aissatou - 03/24/2024 4:12 [place] 03/24/2024 4:12 PM Angie Rajput - 03/24/2024 4:12 PM EDTRosalchaya Aissatou - 03/24/2024 4:12 [place] - 03/24/2024 4:12 PM EDTAttachments Note Date & Type Note Facility 05-13-2024 Note ID Cardiology - [facility] Subjective George Styles is a [...] , Rfl: t (more content not included)... [facility] 03-24-2024 History of Present illness Narrative [facility] RX OUTREACH ADVANCED: Call Information: Date and Time of Contact: 03/24/2024 4:14 PM Method of Contact: By Phone Contact Type: Prescriptions Contactor: [facility] Contactee: Patient Contact Outcome: Left message Shipping/Pickup: Medication Name: Prograf 0.2mg pack Contact Info: Specialty ([place]) [phone] [facility] [phone] [facility] [phone] David [phone] Bedside Delivery ([facility]) [phone] [facility] OP RX OUTREACH ADVANCED: Call Information: Date and Time of Contact: 03/28/2024 3:58 PM Method of Contact: By Phone Contact Type: Prescriptions Contactor: [facility] Contactee: Patient Contact Outcome: Left message and Call back later Shipping/Pickup: Medication Name: Mycophenolate, prograf Contact Info: Specialty ([place]) [phone] [facility] [phone] [facility] [phone] David [phone] Bedside Delivery ([facility]) [phone] [facility] RX OUTREACH ADVANCED: Call Information: Method of Contact: By Phone Contact Type: Prescriptions Contactor: Patient Contactee: [facility] OP Shipping/Pickup: Medicare B Refill?: No Medication Name: Mycopheolate 360mg and Prograf Delivery Method: Ship Delivery Location: Home Signature Required: No Receive/Pickup Date: 04/04/2024 Shipping Address: [address] [place] [address] [address] Contact Info: Specialty ([place]) [phone] [facility] [phone] [facility] [phone] David [phone] Bedside Delivery ([facility]) [phone] [facility] History of Present illness Narrative [facility] OUTREACH ADVANCED: Call Information: Date and Time of Contact: 03/24/2024 4:14 PM Method of Contact: By Phone Contact Type: Prescriptions Contactor: [facility] Contactee: Patient Contact Outcome: Left message Shipping/Pickup: Medication Name: Prograf 0.2mg pack Contact Info: Specialty ([place]) [phone] [facility] [phone] [facility] [phone] David [phone] Bedside Delivery ([facility]) [phone] [facility] RX OUTREACH ADVANCED: Call Information: Date and Time of Contact: 03/28/2024 3:58 PM Method of Contact: By Phone Contact Type: Prescriptions Contactor: [facility] Contactee: Patient Contact Outcome: Left message and Call back later Shipping/Pickup: Medication Name: Mycophenolate, prograf Contact Info: Specialty ([place]) [phone] [facility] [phone] [facility] [phone] David [phone] Bedside Delivery ([facility]) [phone] [facility] RX OUTREACH ADVANCED: Call Information: Method of Contact: By Phone Contact Type: Prescriptions Contactor: Patient Contactee: [facility] Shipping/Pickup: Medicare B Refill?: No Medication Name: Mycopheolate 360mg and Prograf Delivery Method: Ship Delivery Location: Home Signature Required: No Receive/Pickup Date: 04/04/2024 Shipping Address: [address] [place] [address] [address] Contact Info: Specialty ([place]) [phone] Jakob [phone] [facility] [phone] David [phone] Bedside Delivery ([facility]) [phone] [facility] RX OUTREACH ADVANCED: Pre-Verification/Specialty Assessment/Disease [...] Within normal limits Contact Info: Specialty ([place]) [phone] Jakob [phone] [facility] [phone] David [phone] Bedside Delivery ([facility]) [phone] documented in this encounter [facility] 03-02-2024 History of Present illness Narrative [...] del of broth Contact Info: Specialty ([place]) [phone] [facility] [phone] [facility] [phone] David [phone] Bedside Delivery ([facility]) [phone] [facility] RX OUTREACH ADVANCED: Call Information: Date and Time of Contact: 03/02/2024 3:49 PM Method of Contact: By Phone Contact Type: Prescriptions Contactor: [facility] Contactee: Patient Contact Outcome: Left message and Follow-up Shipping/Pickup: Medication Name: Myco 360mg and Prograf 0.2mg Contact Info: Specialty ([place]) [phone] [facility] [phone] [facility] [phone] David [phone] Bedside Delivery ([facility]) [phone] [facility] RX OUTREACH ADVANCED: Call Information: Date and Time of Contact: 03/02/2024 4:08 PM Method of Contact: By Phone Contact Type: Prescriptions Contactor: [facility] Contactee: Patient Shipping/Pickup: Medicare B Refill?: No Medication Name: Myco 360 / prograf 0.2 Delivery Method: Ship Delivery Location: Home Signature Required: No Receive/Pickup Date: 03/03/2024 Shipping Address: [address] [place] [address] [address] Contact Info: Specialty ([place]) [phone] [facility] [phone] [facility] [phone] David [phone] Bedside Delivery ([facility]) [phone] documented in this encounter [facility] 02-26-2024 History of Present illness [...] presents to the HF Clinic at the [facility] on 02/26/2024 for initial evaluation of heart [...] Jyoti Bryant MD, PhD; Location: [facility] MAIN OR PLACEMENT NEPHROSTOMY CATHETER PERCUTANEOUS W/ IMAGE GUIDANCE 05/17/2022 Surgeon: Enzo Heart DO; Location: [facility] INTERVENTIONAL RADIOLOGY (VIR) LIVER TRANSPLANT, ORTHOTOPIC N/A 04/12/2020 Laterality: N/A; Surgeon: LU [place]; Location: [facility] SAME DAY SURGERY MAIN OR KIDNEY TRANSPLANT W/O TOGIAK NEPHRECTOMY N/A 04/12/2020 Laterality: N/A; Surgeon: LU Palma; Location: [facility] SAME DAY SURGERY MAIN OR OTHER SURGICAL [...] qd Antithrombotic: no Statin: no ICD: NA WHEEL PRESS CLERK: NA CV Test results: ECHOCARDIOGRAM 01/18/2024 (Final) [...] will be BP control. Candie Almaguer M.D. financial planning analyst Advanced Heart Failure Program Division of Cardiovascular Medicine [facility] [email or web address] ph [phone] fax [phone] documented in this encounter [facility] 02-26-2024 Instructions Marsha Mckeon RN - 02/26/2024 9:30 AM EDT The following instructions were given today: Labs today Follow up with Dr. Almaguer as needed. Your after visit summary (AVS) is viewable in [facility] My Chart. Call RN if you have cardiac questions/concerns M-F 8 to 4:30 ; office # [phone], option 6, then option 2. Guidelines for home management: 1. Continue to monitor weight first thing each morning. 2. Report to the CHF CLINIC ([phone]) any significant weight change. Remember that weight [...] to have labs/tests run outside of the [facility] and you do not hear from us 1-2 days after they are performed, you must call us to ensure we received the results. Office fax # [phone]. No news does not necessarily mean that your tests are normal, it could mean we did not get the results. For questions/updates: please provide your name with spelling, date of and question or update All calls are prioritized and responses researched, if possible, prior to calls being returned. Call Scheduling for any appointment/procedure verification or changes [phone], option 7 or [facility] Heart Schedulers at [phone], option 1. documented in this encounter [facility] 01-23-2024 Nurse Note Jakob wrap [...] to transport home on home oxygen supply. [facility] 01-23-2024 Miscellaneous Notes Jakob wrap [...] (Acute Pain): verbalization of pain descriptors George Tray Styles ([id number]) PRE OPERATIVE DIAGNOSIS High output congestive heart failure [I50.83] POST OPERATIVE DIAGNOSIS Post-Op Diagnosis Codes: * High output congestive heart failure [I50.83] PROCEDURE PERFORMED Procedure(s) (LRB): LIGATION ANGIOACCESS AVF (Left) Resection of large aneurysmic vein PRIMARY CLOSURE Yes INTRAOPERATIVE FINDINGS No significant abnormalities SURGEON Surgeons and Role: * Jyoti Bryant MD, PhD - Primary ANESTHESIOLOGIST Anesthesiologist: Celena Tiwari MD; Kehinde Gutierrez MD REGISTERED REPRESENTATIVE: David Jasso APRN-REGISTERED REPRESENTATIVE Youth Liaison Officer Assisting: Mini Khan MD SURGICAL STAFF Residential Property Tax Appraiser: Zoila Lawrence RN Relief Residential Property Tax Appraiser: Marimar Saravia RN Relief Scrub: Briseyda Self [...] patent, patient breathing easily. Report received from vice president of news and report received from anesthesiology. Pt arrived [...] Axillary block. SURGEON(S): Jyoti Bryant MD, PHD TACK MAKER: Mynor Fall MD ESTIMATED BLOOD LOSS: Minimal. [...] Jyoti Bryant MD, PHD ATTENDING AR/MedQ JOB: [id number] DOC: [id number] Patient has been asleep this shift. He [...] usually takes 8mg at home. -SAMI Duffy #[phone] Tati Charles RN Internal Medicine Daily Progress Note Patient: George Styles, 1970, [id number] Physician: Arelis Mera MD, PGY3, Pager #[phone], TM1 service Assessment/Plan: George Styles is a [...] home amlodipine 5mg CAD: non-obstructive CAD on [facility] 2018. - continue home aspirin [...] Mera MD Mr. Styles was admitted to [address] [place] [address]. On admission to [facility], from outside facility a dual RN initial assessment of skin condition was performed by Izzy Gutierrez, RN and Leroy Singleton, SAMI. Skin Assessment: Skin within defined limits:Yes Jose Score: 20 Wound Vision Manager Pe images obtained: No LDA Added: No Based [...] [facility] 01-23-2024 Nurse Note Home Oxygen [...] Daily Kelvin Pacheco MD, MBBS professor of biblical studies Transplant nephrology Surgery Post-Op Check Note George [...] monitor Leonel Harris DO General Surgery Pager [phone] CM went to bedside to talk with patient. Patient states he has home oxygen through [employer]. He uses 2.5 LNC around the clock. Patient states his brother will bring a tank for discharge. Anticipate patient will discharge tomorrow AM. Brother updated. Girish Oro RN, BSN Clinical Purchasing And Claims Supervisor Please note that I am a float correctional counselor/case manager and may not cover the same service every day. Please call the main Case Management office at [phone] for up-to-date coverage. Verified patients identity using [...] Daily Progress Note Patient: George Styles, 1970, [id number] Physician: Yury Ozuna MD, PGY1, Pager #[phone], XE1 service Assessment/Plan: George Styles is a 53 [...] by transplant surgery on 01/22 (NPO at fl, updated type & screen) S/p Liver-Kidney Transplant [...] with the Nutrition plan outlined in the Card Hand s note. DVT prophylaxis with lovenox Diet [...] note. Kelvin Pacheco MD, LU professor of biblical studies Transplant nephrology Patient seen and examined at [...] Oral BID AC Kelvin Pacheco MD, LU professor of biblical studies Transplant nephrology Images from the original note were not included. Internal Medicine Daily Progress Note Patient: George Styles, 1970, [id number] Physician: Yury Ozuna MD, PGY1, Pager #[phone], QK0 service Assessment/Plan: George Styles is a 53 [...] home amlodipine 5mg CAD: non-obstructive CAD on [facility] 2018. - continue home aspirin [...] with the Nutrition plan outlined in the Card Hand s note. DVT prophylaxis with lovenox Diet [...] Provider: Zuly Bruno NP Pharmacy: [facility] Other Comments: Patient reported his Last Home Dose of mycophenolate and tacrolimus was on 01/15/24 at 0700. Medications that need removed from Outside Medication Reconciliation list: Please remove all medications. Please feel free to contact me with any further questions. Name: Heidy Chatman Phone #: [phone] Date/Time: 01/19/2024 12:08 PM Time Spent: 15 minutes Associated attestation - Fidelina Alarcon RPH - 01/19/2024 12:41 PM EST Department of Pharmacy Admission Medication Reconciliation Note Patient: George Styles Room/Bed: 1082/A I have reviewed the home medication list with the [employer] Laboratory Assistant. The home medication list status is: complete. All changes to the home medication list have been updated in [facility]. Updated PERCUSSION INSTRUCTOR Med List: Prior to Admission Medications Prescriptions [...] with any further questions. Name: Fidelina Alarcon [facility] Phone #: [phone] Date/Time: 01/19/2024 12:41 PM Internal Medicine Daily Progress Note Patient: George Styles, 1970, [id number] Physician: Yury Ozuna MD, PGY1, Pager #[phone], DM8 service Assessment/Plan: Acute Hypoxic Respiratory Insufficiency GARCIA, [...] with the Nutrition plan outlined in the Card Hand s note. DVT prophylaxis with lovenox Diet [...] 616) Associated attestation - Kelvin Pacheco MD, MBBS - 01/19/2024 12:31 PM EST Patient seen [...] Daily Kelvin Pacheco MD, MBBS professor of biblical studies Transplant nephrology Internal Medicine Daily Progress Note Patient: George Styles, 1970, [id number] Physician: Yury Ozuna MD, PGY1, Pager #[phone], TM1 service Assessment/Plan: Updates: - continued diuresis [...] home amlodipine 5mg CAD: non-obstructive CAD on [facility] 2018. - continue home aspirin [...] with the Nutrition plan outlined in the Card Hand s note. DVT prophylaxis with lovenox Diet [...] note. Kelvin Pacheco MD, MBBS professor of biblical studies Transplant nephrology Pt known to button riveter from previous admissions. Provided emotional and spiritual support. Patient shared about: family support, medical course Synoptic Meteorologist provided: - Supportive presence - Active listening - Validation of feelings/emotions Patient encouraged to request a button riveter as needed. Chaplains are available in-house 24 hours a day and 7 days a week. For urgent matters in [facility], please page [phone]. If the request is not urgent, please enter a consult. Consults are responded to within 24 hours. Senior Staff Synoptic Meteorologistwilmer Singh Mdiv, [facility] [place] [phone] [email or web address] On-call TYLOR: architecture consultant David: 22/06 Pager ,[facility], and [place] 1500 David Pager [phone] 01/18/24 1342 Clinical Encounter Type Visited With Patient Visit Type Introduction Pastoral Time Spent 15 min Referral Other (See Comment) (rounding) Spiritual Assessment Emotional Observation Coping well;Anxiety Hope Observation Specific hope focus Support Observation By Family Interventions Provided Active listening;Supportive presence Facilitated Verbalization of feelings;Identifying support system;Identifying Sources of spiritual well-being Explored Expectations;Treatment decisions Event Management Consultant Education Event Management Consultant Service Available Yes Educated Patient Outcomes Patient [...] interaction. Name: Fidelina Alarcon RPH Phone #: [phone] Date/Time: 01/18/2024 9:56 AM Discharge Planning Patient [...] Yes Name and Contact information: Gian Styles ([phone]) Would you like to add additional adult [...] Is the patient from a facility or nursing home?: No Patient lives with: Alone Living [...] oxygen?: Yes Oxygen Provider and Contact : [employer] Liter-Flow?: 20/01- Order for oxygen use?: unknown [...] patient on Anticoagulation? : No [id number] [place] [address] [facility] [address] [place] [address] Hem Marker Does the patient or abrasives sales representative express financial concerns? : No Employed?: Disabled Coping/Stress Concerns about patient s coping and stress?: No Concerns about patient s caregiver s coping and stress?: No Values and Beliefs Cultural or spiritism practices that may impact discharge planning and/or [...] Plan 1. Identified self and role as Purchasing And Claims Supervisor. 2. Confirmed and updated demographics and treatment team. 3. Purchasing And Claims Supervisor will continue to follow with medical team for any other additional discharge needs. Kasandra DON RN *Please note I am float and work Thursday and Thursday every other week. Please call [phone] for assist in my absence. Internal Medicine Daily Progress Note Patient: George Styles, 1970, [id number] Physician: Yury Ozuna MD, PGY1, Pager #[phone], DY4 service Assessment/Plan: Updates: - continue diuresis with [...] home amlodipine 5mg CAD: non-obstructive CAD on [facility] 2018. - continue home aspirin [...] SpO2: 92% O2 Device: nasal cannula (01/17/24 104) Flow (L/min): 2 (01/17/24 0833) Gen: NAD, [...] ordered 2D echo. Kevin Prince MD, MADISONN Aitchbone Breaker of Clinical Medicine [facility] documented [...] your doctor for further instructions. Please call [phone], Option 1 or [phone] to schedule your appointment with the Heart Failure Clinic. Arelis Mrea MD - 01/22/2024 3:08 PM EST You can change your dressing 48 hours from the procedure The following attachments cannot be sent through Care Everywhere.Heart Failure: Avoiding Triggers (Paraguayan)Heart Failure: Limiting Sodium (Paraguayan)Pain and Pain Control ([facility]) (Paraguayan)documented in this encounter [facility] 01-22-2024 Surgery Postoperative evaluation and management note George Styles ([id number]) PRE OPERATIVE DIAGNOSIS High output congestive heart failure [I50.83] POST OPERATIVE DIAGNOSIS Post-Op Diagnosis Codes: * High output congestive heart failure [I50.83] PROCEDURE PERFORMED Procedure(s) (LRB): LIGATION ANGIOACCESS AVF (Left) Resection of large aneurysmic vein PRIMARY CLOSURE Yes INTRAOPERATIVE FINDINGS No significant abnormalities SURGEON Surgeons and Role: * Jyoti Bryant MD, PhD - Primary ANESTHESIOLOGIST Anesthesiologist: Celena Tiwari MD; Kehinde Gutierrez MD REGISTERED REPRESENTATIVE: David Jasso APRN-REGISTERED REPRESENTATIVE Youth Liaison Officer Assisting: Mini Khan MD SURGICAL STAFF Residential Property Tax Appraiser: Zoila Lawrence RN Relief Residential Property Tax Appraiser: Marimar Saravia RN Relief Scrub: Briseyda Self Scrub Person: Cinda Mai RN Resident Assisting: Leonel Harris DO Fellow: Miki Mcgowan MD, MBBS COMPLICATIONS None ESTIMATED BLOOD LOSS Minimal SPECIMENS No specimen sent * No specimens in log * Jyoti Bryant MD, PhD January 22, 2024 1:34 PM [facility] Work Phone: 01-22-2024 Nurse Note Arrived to PACU assisted by anesthesiology. Connected to monitors. Turned side to side, OR linens removed, repositioned. Airway patent, patient breathing easily. Report received from vice president of news and report received from anesthesiology. Pt arrived awake. VSS. Sats slightly low. Pulm rehab used. Sats currently 3lpm @ 93%. Pt states he uses CPAP nocturnally. A&Ox4. Nerve block left arm, elevated. [facility] 01-22-2024 Surgery Postoperative evaluation and management note [...] Axillary block. SURGEON(S): Jyoti Bryant MD, PHD TACK MAKER: yMnor Fall MD ESTIMATED BLOOD LOSS: Minimal. COMPLICATIONS: [...] Jyoti Bryant MD, PHD ATTENDING SHANNON/Constanza JOB: [id number] DOC: [id number] [facility] 01-22-2024 Plan of care note Patient has [...] 1939 Plan Of Care Reviewed With: patient [facility] 01-20-2024 Consult note Associated Order (s): IP CONSULT TO SURGERY - TRANSPLANT (RENAL) Images from the original note were not included. TRANSPLANT SURGERY CONSULT NOTE: Consult: 01/20/2024, 4:03 PM Tile Erector: Starla Morirs MD Reason for Consult: Requesting Dr Carson Bryant for AVF revision/closure given new onset high output heart failure George Styels is a 53 y.o. male CURRENT HOSPITALIZATION LOS: Admit Date: 01/16/2024 [facility] Hospital LOS: 4 days George Styles [...] DAY SURGERY MAIN OR KIDNEY TRANSPLANT W/O TOGIAK NEPHRECTOMY N/A 04/12/2020 Laterality: N/A; Surgeon: LU Palma; [facility] OR OTHER [...] Studies: Labs-CBC: WBC/Hgb/Hct/Plts: 3.79/12.5/38.9/166 (01/20 611) Labs-Chem 7([facility]): Bun/Creat/Cl/CO2/Glucose: 15/1.12/105/28/88 (01/20 611) Na/K+/Phos/Mg/Ca: 141/3.8/--/1.6/-- [...] seen and staffed with Dr. Mcgowan fellow public relations assistant Thank you, Starla Morris MD Associated attestation [...] SURGERY CONSULT NOTE: Consult: 01/20/2024, 4:03 PM Tile Erector: Starla Morris MD Reason for Consult: Requesting Dr Carson Bryant for AVF revision/closure given new onset high output heart failure George Styles is a 53 y.o. male CURRENT HOSPITALIZATION LOS: Admit Date: 01/16/2024 [facility] Hospital LOS: 4 days George Styles [...] DAY SURGERY MAIN OR KIDNEY TRANSPLANT W/O TOGIAK NEPHRECTOMY N/A 04/12/2020 Laterality: N/A; Surgeon: LU Palma; [facility] OR OTHER [...] tablet 81 mg 81 mg Oral Daily Timotyh Joseph MD 81 mg at 01/20/24917 Enoxaparin [...] Studies: Labs-CBC: WBC/Hgb/Hct/Plts: 3.79/12.5/38.9/166 (01/20 611) Labs-Chem 7([facility]): Bun/Creat/Cl/CO2/Glucose: 15/1.12/105/28/88 (01/20 611) Na/K+/Phos/Mg/Ca: 141/3.8/--/1.6/-- [...] seen and staffed with Dr. Mcgowan fellow public relations assistant Thank you, Starla Morris MD Associated attestation - Jyoti Bryant MD, PhD - 01/22/2024 10:54 AM EST I. Jyoti Bryant MD, PhD, have independently seen and examined the patient, reviewed the labs, discussed the patient with the fellow/resident and agree with the note. Associated Order(s): IP CONSULT TO HEPATOBILIARY N [facility] Main Hepatology Consult WebExchange --> IM Consult Serv [facility] --> [facility] Main Hepatology consult service Fellow [...] Surgeon: Enzo Heart DO; Location: [facility] INTERVENTIONAL RADIOLOGY (VIR) LIVER TRANSPLANT, ORTHOTOPIC N/A 04/12/2020 Laterality: N/A; Surgeon: LU Palma; Location: [facility] SAME DAY SURGERY MAIN OR KIDNEY TRANSPLANT W/O TOGIAK NEPHRECTOMY N/A 04/12/2020 Laterality: N/A; Surgeon: LU Palma; Location: [facility] SAME DAY SURGERY MAIN OR OTHER SURGICAL [...] (order for outpatient) Please SecureChat or Call ([phone]) for any questions. Await attending attestation for final recommendations. Hank Noel MD Division of Gastroenterology, Hepatology, and Nutrition Clinical Fellow, PGY-5 Pager: [phone] For urgent/stat calls or consults 5pm to 7am, please page the on-call GI fellow on [facility]--> Internal Medicine--> Gastroenterology, Hepatology, & Nutrition--> 1st Call Janae Hatfield For urgent/stat calls or consults 7am to 5pm during the weekend, please page the on-call GI fellow on [employer]. [facility]--> Internal Medicine--> Gastroenterology, Hepatology, & Nutrition--> All [facility] & [facility] Cons Fel Day For follow up questions regarding this patient 7am to 5pm during the weekday, contact the Hepatology consults fellow or CARLOS A on QGenda. [facility]--> Internal Medicine--> Gastroenterology, Hepatology, [...] MD, MSc documented in this encounter [facility] 01-19-2024 Nurse Note 01/19/24 0900 [...] rest, 95-96% when talking/moving. Paulette Cordon RN [facility] 01-19-2024 Nurse Note Paged overnight coverage, Jasper Gastelum MD, via pager #[phone] Pt- Mark. Sarah Styles 1082. TM1. Was wondering if he can have his Melatonin order increased to 6mg. Per pt, he usually takes 8mg at home. -SAMI Duffy #[phone] Tati Charles RN [facility] 01-18-2024 Consult note Associated Order (s): IP [...] DAY SURGERY MAIN OR KIDNEY TRANSPLANT W/O TOGIAK NEPHRECTOMY N/A 04/12/2020 Laterality: N/A; Surgeon: LU [...] (order for outpatient) Please SecureChat or Call ([phone]) for any questions. Await attending attestation for final recommendations. Hank Noel MD Division of Gastroenterology, Hepatology, and Nutrition Clinical Fellow, PGY-5 Pager: [phone] For urgent/stat calls or consults 5pm to 7am, please page the on-call GI fellow on [employer]. [facility]--> Internal Medicine--> Gastroenterology, Hepatology, & Nutrition--> 1st Call Janae Hatfield For urgent/stat calls or consults 7am to 5pm during the weekend, please page the on-call GI fellow on [employer]. [facility]--> Internal Medicine--> Gastroenterology, Hepatology, & Nutrition--> All Hep & East [facility] Cons Fel Day For follow up questions regarding this patient 7am to 5pm during the weekday, contact the Hepatology consults fellow or CARLOS A on [employer]. [facility]--> Internal Medicine--> Gastroenterology, Hepatology, [...] Daily Progress Note Patient: George Styles, 1970, [id number] Physician: Arelis Mera MD, PGY3, Pager #[phone], TM1 service Assessment/Plan: George Styles is a [...] home amlodipine 5mg CAD: non-obstructive CAD on [facility] 2018. - continue home aspirin [...] MD, on rounds. Signed, Arelis Mera MD [facility] 01-16-2024 Nurse Note Mr. Styles was admitted to [address] [place] [address]. On admission to R10, from outside facility a dual RN initial assessment of skin condition was performed by Izzy Gutierrez RN and Leroy Singleton RN. Skin Assessment: Skin within defined limits:Yes Jose Score: 20 Wound Vision Manager Pe images obtained: No LDA Added: No Based [...] room closest to nurses station when available. [facility] 01-16-2024 History and physical note Images from the original note were not included. Internal Medicine Admission History & Physical Patient: George Styles, 1970, [id number] Physician: Timothy Joseph MD, PGY1, Pager #[phone], TM 1 service Date of face to [...] DAY SURGERY MAIN OR KIDNEY TRANSPLANT W/O TOGIAK NEPHRECTOMY N/A 04/12/2020 Laterality: N/A; Surgeon: LU [...] itraconazole Fax results to: Dr. White - [phone] Transplant Neph - [phone] Gabapentin 400 MG capsule Sig: Take 1 [...] erythema: Skin: No jaundice or rash Neuro: securities sales associate 3-7, 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 Strength grossly [...] home amlodipine 5mg CAD: non-obstructive CAD on [facility] 2018. - continue home aspirin 81mg daily Gout: continue home allopurinol 200mg daily BPH: continue home flomax 0.4mg daily Complexity. Obesity Body mass index is 32.8 kg/m . - Follow with PCP for dietary and lifestyle modifications. Any conditions listed below are present on admission unless otherwise specified. . DVT prophylaxis with lovenox Disposition: admitted to [facility] Code status is Full Staffed with [...] Pierson, Luisa Steven, Renee Rivera, Daisha Max Victorian Literature Professor: José Miguel Garnica All Txt: 04/13/2020 [...] results found for: CYCLOSPORIN , CYCLOSPORIN2 , [id number] , CYCLORAND No results found for: SIROLIMUS , RAPAMUNE , RAPAMYCIN No results found for: EVEROLIMUS , EVRLMSTRGH , EVERTRGHMANE , EVRLMSRND Lab Results Component Value Date TACROLIMUS 5.7 01/16/2024 LESLYE 5.2 01/08/2024 Initially, when received call from [...] request in chart. Kevin Prince MD Pager [phone] [facility] 01-16-2024 History and physical note Images from the original note were not included. Internal Medicine Admission History & Physical Patient: George Styles, 1970, [id number] Physician: Timothy Joseph MD, PGY1, Pager #[phone], TM 1 service Date of face to [...] N/A; Surgeon: LU Palma; Location: [facility] SAME DAY SURGERY MAIN OR KIDNEY TRANSPLANT W/O TOGIAK NEPHRECTOMY N/A 04/12/2020 Laterality: N/A; Surgeon: LU [...] itraconazole Fax results to: Dr. White - [phone] Transplant Neph - [phone] Gabapentin 400 MG capsule Sig: Take 1 [...] erythema: Skin: No jaundice or rash Neuro: securities sales associate 3-7, 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 Strength grossly [...] home amlodipine 5mg CAD: non-obstructive CAD on [facility] 2018. - continue home aspirin 81mg daily Gout: continue home allopurinol 200mg daily BPH: continue home flomax 0.4mg daily Complexity. Obesity Body mass index is 32.8 kg/m . - Follow with PCP for dietary and lifestyle modifications. Any conditions listed below are present on admission unless otherwise specified. . DVT prophylaxis with lovenox Disposition: admitted to [facility] Code status is Full Staffed with [...] Pierson, Luisa Steven, Renee Rivera, Daisha Max Victorian Literature Professor: José Miguel Garnica All Txt: 04/13/2020 [...] results found for: CYCLOSPORIN , CYCLOSPORIN2 , [id number] , CYCLORAND No results found for: SIROLIMUS [...] request in chart. Kevin Prince MD Pager [phone] documented in this encounter [facility] [...] Prograf 0.2 MG Contact Info: Specialty ([place]) [phone] [facility] [phone] [facility] [phone] David [phone] Bedside Delivery ([facility]) [phone] [facility] OP RX OUTREACH ADVANCED: Call Information: Date and Time of Contact: 01/25/2024 10:23 AM Method of Contact: By Phone Contact Type: Prescriptions Contactor: [facility] OP Contactee: Patient Contact Outcome: Left message (prograf myco) Contact Info: Specialty ([place]) [phone] [facility] [phone] [facility] [phone] David [phone] Bedside Delivery ([facility]) [phone] documented in this encounter [facility] [...] Name: Prograf 0.2 MG Contact Info: Specialty ([place]) [phone] [facility] [phone] [facility] [phone] David [phone] Bedside Delivery ([facility]) [phone] [facility] OP RX OUTREACH ADVANCED: Call Information: Date and Time of Contact: 01/25/2024 10:23 AM Method of Contact: By Phone Contact Type: Prescriptions Contactor: [facility] OP Contactee: Patient Contact Outcome: Left message (prograf myco) Contact Info: Specialty ([place]) [phone] [facility] [phone] [facility] [phone] David [phone] Bedside Delivery ([facility]) [phone] [facility] OP RX OUTREACH ADVANCED: Call Information: Date and Time of Contact: 01/27/2024 10:19 AM Method of Contact: By Phone Contact Type: Prescriptions Contactor: [facility] OP Contactee: Patient Contact Outcome: Left message (myco prograf) Contact Info: Specialty ([place]) [phone] [facility] [phone] [facility] [phone] David [phone] Bedside Delivery ([facility]) [phone] documented in this encounter [facility] [...] Name: Prograf 0.2 MG Contact Info: Specialty ([place]) [phone] [facility] [phone] [facility] [phone] David [phone] Bedside Delivery ([facility]) [phone] [facility] OP RX OUTREACH ADVANCED: Call Information: Date and Time of Contact: 01/25/2024 10:23 AM Method of Contact: By Phone Contact Type: Prescriptions Contactor: [facility] OP Contactee: Patient Contact Outcome: Left message (prograf myco) Contact Info: Specialty ([place]) [phone] [facility] [phone] [facility] [phone] David [phone] Bedside Delivery ([facility]) [phone] [facility] OP RX OUTREACH ADVANCED: Call Information: Date and Time of Contact: 01/27/2024 10:19 AM Method of Contact: By Phone Contact Type: Prescriptions Contactor: [facility] OP Contactee: Patient Contact Outcome: Left message (myco prograf) Contact Info: Specialty ([place]) [phone] [facility] [phone] [facility] [phone] David [phone] Bedside Delivery ([facility]) [phone] [facility] OP RX OUTREACH ADVANCED: Call Information: Date and Time of Contact: 02/01/2024 3:22 PM Contact Type: Prescriptions Contactor: [facility] OP Contactee: Patient Contact Outcome: Left message Shipping/Pickup: Medication Name: Mycophenolate 360mg and Prograf 0.2mg Pack Contact Info: Specialty ([place]) [phone] Jakob [phone] [facility] [phone] David [phone] Bedside Delivery ([facility]) [phone] documented [facility] encounter [facility] [...] The neurologist wanted to send him to [facility] neurology but it is out [...] 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 10-06-2023 History of Present illness [...] Prograf 0.2 MG Contact Info: Specialty ([place]) [phone] Jakob [phone] [facility] [phone] David [phone] Bedside Delivery ([facility]) [phone] [facility] OP RX OUTREACH ADVANCED: Call Information: Date and Time of Contact: 10/23/2023 2:00 PM Method of Contact: By Phone Contact Type: Prescriptions Contactor: [facility] OP Contactee: Patient Contact Outcome: Left message and Call back later Shipping/Pickup: Medication Name: Mycophenolate 360mg and Prograf 0.2mg Contact Info: Specialty ([place]) [phone] Jakob [phone] [facility] [phone] David [phone] Bedside Delivery ([facility]) [phone] documented in this encounter [facility] 09-11-2023 Miscellaneous Notes Pt discharged [...] the oxygen during the night. 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 This RN made [...] Patient seen ambulating in the velazquez with RN RESOURCE NURSE. Patient was mildly short of breath on [...] & HR 114. Messaged Mainor Loomis, via [employer] secure chat, Temp 100.8. His tylenol order [...] short period of time. 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 Episode of [...] Critical Care Medicine Message Mainor Loomis, via [employer] secure chat, Good evening, just an FYI, [...] short period of time. 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 This morning, [...] I have personally seen and examined Mr. Stylse, and have independently reviewed pertinent labs/radiographs. I [...] [address] Loera here also (investigator narcotics) Dr. Diaz aware of pt's increased oxygen [...] regular sleep/rest pattern promoted Sent a secure [employer] chat to Rosi LUZ concerning patient's temp [...] PGY-2 Mr. Styles was admitted to [address] [place] [address]. On admission to [facility], from home a [...] when available. documented in this encounter [facility] 09-11-2023 History of Present illness Narrative Provided follow-up emotional and spiritual support. Patient shared about rosemary of discharge and looking forward to seeing family Synoptic Meteorologist provided: - Supportive presence - Active listening - Validation of feelings/emotions Patient encouraged to request a button riveter as needed. Chaplains are available in-house 24 hours a day and 7 days a week. For urgent matters in [facility], please page [phone]. If the request is not urgent, please enter a consult. Consults are responded to within 24 hours. Senior Staff Chaplain Angie Singh Mdiv, [facility] Kirk [phone] [email or web address] 22/06 On-call Kirk: [phone] 22/06 Pager ,BS, and Brock Lewis David Pager [phone] 09/11/23 1430 Clinical Encounter Type Visited With Patient Visit Type Follow-up Pastoral Time Spent 15 min Referral Other (See Comment) (rounding) Spiritual Assessment Spiritual Observation Spirituality helpful Emotional Observation Coping well Hope Observation Specific hope focus Support Observation By Family Interventions Provided Active listening;Supportive presence Facilitated Verbalization of feelings Explored Expectations Event Management Consultant Education Event Management Consultant Service Available Yes Educated Patient Plan of Care Continue Visiting PRN Images from the original note were not included. [facility] Note: Non-Verbal Med Rec [facility] received the following discharge prescription(s): Total cost is $0. I have reviewed the Discharge Rx Reconciliation Report. The discharge prescription(s) will be delivered to the patient on 09/11/2023. Dimitrios Gurrola RPh,PharmD Specialty ([place]) [phone] [facility] [phone] [facility] Bedside Delivery [phone] [facility] [phone] [facility] Bedside Delivery [phone] [facility] [phone] [facility] Bedside Delivery [phone] [place] [phone] [place] [phone] Internal Medicine Daily Progress Note Patient: George Styles, 1970, [id number] Physician: Evan Kelly MD, PGY-1, TM1 service Subjective/Interval History: Patient continues to require oxygen overnight for desaturations. With insurance limitations, only accepting agency to provide home oxygen backed out. After calling them to discuss, Lynn stated she would be willing to have patient drive to their facility to berry picker machine operator supplies, however they close at 5pm. 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 His lower brule kidney disease was noted to be presumed [...] losartan 50mg BID CAD: non-obstructive CAD on [facility] 2018. - continue home aspirin [...] 5.05 (H) 11/19/2018 Kevin Prince MD, [place]N Aitchbone Breaker of Clinical Medicine [facility] Images from the original note were not included. Final Discharge Planning and Transportation Final Discharge Planning Discharge Disposition: Home Services at Discharge: Outpatient clinical services (ie: lab draws, transfusions, injectables) (Home Oxygen by [facility]) Selected Continued Care - Admitted Since 08/28/2023 Durable Medical Equipment Coordination complete. 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 Addendum 1520 [employer] notified this CM they are out of patient's insurance area and will not be able to service this patient at time of discharge. Provider notified. Addendum 1556 Dr Kelly called [employer] spoke to Lynn and she said they are willing to accept patient if the patient would drive to the [employer] office and berry picker machine operator the supplies. 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 Medication additions/changes: Lipitor on hold with itraconazole Items for clinic follow up: - Lipid follow up with atorvastatin on hold - Itraconazole level and, if needed, a dose adjustment Name: Matt Kramer RPh,PharmJenna Phone: [phone] Date/Time: 09/10/2023 11:33 AM This CM sent referral via [employer] for O2 concentrator to 4 agencies Start date today Timer set for 1330 [employer] [facility] [employer] Addendum 1332 One accepting company reserved in fypio [address] [place] [address] Lora Colón RN, MSN, CCM, CMCN Clinical Purchasing And Claims Supervisor- [facility] Transplant #[phone] NUTRITION FOLLOW-UP Nutrition Plan of Care: 1. Continue current diet order. 2. No oral supplements warranted at this time. 3. Monitor for significant weight changes. Monitor GI, skin integrity. 4. Monitor and encourage po intakes with goal of average po being 75-100%. 5. emergency medical technician basic to follow. ___ Met with patient today [...] time. Will continue to monitor. RHIANNON BirminghamR Pager:[phone] Transplant Infectious Disease (Team 3) Progress Note [...] sign off. Please Epic message or page [phone] with questions. 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 His lower brule kidney disease was noted to be presumed [...] losartan 50mg BID CAD: non-obstructive CAD on [facility] 2018. - continue home aspirin [...] to follow. Please Epic message or page [phone] with questions. Evan White DO Transplant Infectious Diseases Internal Medicine Daily Progress Note Patient: George Styles, 1970, [id number] Physician: Laurel Serrano MD, PhD, PGY-3, TM1 service Subjective/Interval History: No acute events overnight. Patient feeling well this morning, noting improved shortness of breath. Only feeling shortness of breath when up and moving. Has been needing O2 at night, but denies history of DARLENE or snoring. Objective: Vitals: 09/09/23215 BP: 119/62 Pulse: 65 [...] s/p combined Liver-kidney transplant on 04/13/20. His lower brule kidney disease was noted to be presumed [...] losartan 50mg BID CAD: non-obstructive CAD on [facility] 2019. - continue home aspirin [...] Daily Progress Note Patient: George Styles, 1970, [id number] Physician: Evan Kelly MD, PGY-1, TM1 service [...] s/p combined Liver-kidney transplant on 04/13/20. His lower brule kidney disease was noted to be presumed [...] losartan 50mg BID CAD: non-obstructive CAD on [facility] 2018. - continue home aspirin [...] 5.05 (H) 11/19/2018 Kevin Prince MD, SERA Aitchbone Breaker of Clinical Medicine [facility] Transplant Infectious Disease (Team [...] to follow. Please Epic message or page [phone] with questions. Ann Marie Haskins MD PGY-4, [...] he continues to improve. Please message via [employer] secure chat or page with any questions or concerns. Evan White DO Aitchbone Breaker Division of Infectious Disease Transplant Infectious Disease [...] to follow. Please Epic message or page [phone] with questions. Evan White DO Transplant Infectious Diseases Images from the original note were not included. Pulmonary/Critical Care Medicine Daily Progress Note Reason for Consultation: bronch for infectious workup Requesting Physician: Dr. Prince CURRENT HOSPITALIZATION: Admit Date: 08/28/2023 [facility] Hospital LOS: 9 days Impression 1. [...] and interpreted reviewed the radiographic data in IHIS/[facility] Lab.where. Internal Medicine Daily Progress Note Patient: George Styles, 1970, [id number] Physician: Evan Kelly MD, PGY-1, TM1 service [...] s/p combined Liver-kidney transplant on 04/13/20. His lower brule kidney disease was noted to be presumed [...] losartan 50mg BID CAD: non-obstructive CAD on [facility] 2019. - continue home aspirin [...] 5.05 (H) 11/19/2018 Kevin Prince MD, MADISONN Aitchbone Breaker of Clinical Medicine [facility] Images from the original note were not included. Pulmonary/Critical Care Medicine Daily Progress Note Reason for Consultation: bronch for infectious workup Requesting Physician: Dr. Prince CURRENT [facility]OSPITALIZATION: [facility]: [facility]: [facility] days Impression [...] and interpreted reviewed the radiographic data in [employer]. Acute Occupational Therapy Evaluation Prior to Admission [...] Assessment: Transfer Assessment: Sit to Stand Transfer Carlton Level: Sit->Stand: independent Skilled Intervention/Details: Sit->Stand: x1 from EOB, x1 from toilet Stand to Sit Transfer Carlton Level: Stand->Sit: independent Skilled Intervention/Details: Stand->Sit: x1 to toilet, x1 to EOB Functional Mobility: Functional Mobility Carlton Level: Functional Mobility/Gait: independent Ambulation Distance (Feet): 20 Skilled Intervention/Details - Functional Mobility/Gait: pt performed functional mobility to/from RR w/ no overt LOB Outcome Score(s): CURRENT [facility] Daily Activity Inpatient Short Form Putting on/Taking Off Lower Body Clothin - A Little Assistance Bathin - A Little Assistance Toiletin - A Little Assistance Putting on/Taking Off Upper Body Clothin - No Assistance Groomin - No Assistance Eatin - No Assistance CURRENT [facility] Activity Raw Score: 21 CURRENT [facility] Activity Functional Limitation/Modifier: 32.79% Currently [...] Acute Physical Therapy Evaluation Prior to Admission [facility] score(s): PRIOR LEVEL AM-PAC Mobility Raw [...] Intact Mobility Assessment: Supine to Sit Mobility Carlton Level: Supine->Sit: modified lans[place] Bed Features/Set-up: Supine->Sit: Head of bed elevated Sit to Supine Mobility Carlton Level: Sit->Supine: not tested Balance: Sitting Balance [...] environment. Transfer Assessment: Sit to Stand Transfer Carlton Level: Sit->Stand: independent Skilled Intervention/Details: Sit->Stand: From EOB x 2 without difficulty. Stand to Sit Transfer Carlton Level: Stand->Sit: independent Assistive Device: Stand->Sit: armed chair Skilled Rationale: Verbal cues, Positioning Gait/Functional Mobility: Gait Assessment Carlton Level: Gait: stand-by assist Assistive Device: Gait: rollator Ambulation Distance (Feet): 400 Gait Deviations Identified: decreased grace, decreased gait speed Gait Skilled Rationale: verbal, upright posture, increase step length, increase foot clearance Skilled Intervention/Details - Gait: Reasonable foot clearnce without loss of balance but endorsing dyspnea as 6-7/10. Stairs: Stairs Assessment Carlton Level: Stair Negotiation: not tested Outcome Score(s): CURRENT [facility] Basic Mobility Inpatient Short Form [...] a railin - A Little Assistance CURRENT [facility] Mobility Raw Score: 21 CURRENT [facility] Mobility Functional Limitation/Modifier: 28.97% Currently [...] Daily Progress Note Patient: George Styles, 1970, [id number] Physician: Evan Kelly MD, PGY-1, TM1 service [...] s/p combined Liver-kidney transplant on 04/13/20. His lower brule kidney disease was noted to be presumed [...] losartan 50mg BID CAD: non-obstructive CAD on [facility] 2018. - continue home aspirin [...] 5.05 (H) 11/19/2018 Kevin Prince MD, SERA Aitchbone Breaker of Clinical Medicine [facility] Transplant Infectious Disease (Team [...] to follow. Please Epic message or page [phone] with questions. Evan White DO Transplant Infectious Diseases Images from the original note were not included. Internal Medicine Daily Progress Note Patient: George Styles, 1970, [id number] Physician: Evan Kelly MD, PGY-1, TM1 service [...] s/p combined Liver-kidney transplant on 04/13/20. His lower brule kidney disease was noted to be presumed [...] P 450 system Kevin Prince MD, SERA Aitchbone Breaker of Clinical Medicine [facility] ERT Note: ERT [...] to follow. Please Epic message or page [phone] with questions. Evan White DO Transplant Infectious Diseases Internal Medicine Daily Progress Note Patient: George Styles, 1970, [id number] Physician: Evan Kelly MD, PGY-1, TM1 service [...] s/p combined Liver-kidney transplant on 04/13/20. His lower brule kidney disease was noted to be presumed [...] 2/2 renal function CAD: non-obstructive CAD on [facility] 2018. - continue home aspirin [...] 5.05 (H) 11/19/2018 Kevin Prince MD, SERA Aitchbone Breaker of Clinical Medicine [facility] Internal Medicine Daily Progress Note Patient: George Styles, 1970, [id number] Physician: Evan Kelly MD, PGY-1, TM1 service [...] s/p combined Liver-kidney transplant on 04/13/20. His lower brule kidney disease was noted to be presumed [...] 2/2 renal function CAD: non-obstructive CAD on [facility] 2018. - continue home aspirin [...] 5.05 (H) 11/19/2018 Kevin Prince MD, FASN Aitchbone Breaker of Clinical Medicine [facility] Progression of Care Note [...] Lora Colón RN, MSN, CCM, CMCN Clinical Purchasing And Claims Supervisor- [facility] Transplant #[phone] Made introductory visit with patient. Provided emotional and spiritual support. Patient shared about: - Source of Rosemary: Camping/Fishing/Family - Spirituality/Yazidism Affiliation: raised Jehovah'S Witness - Family Support/history - Experience with illness/hospital course - Hopes for healing/future Synoptic Meteorologist provided: - Supportive presence - Active listening - Validation of feelings/emotions - Pledged prayer Patient encouraged to request a button riveter as needed. Chaplains are available in-house 24 hours a day and 7 days a week. For urgent matters in [facility], please page [phone]. If the request is not urgent, please enter a consult. Consults are responded to within 24 hours. Senior Staff Synoptic Meteorologist Angie Singh Mdiv, [facility] [place] [phone] [email or web address] 22/06 On-call Kirk: [phone] 22/06 Pager KIKE, and Brock Maciel Pager [phone] 09/02/23 1114 Clinical Encounter Type Visited With Patient Visit Type Introduction Pastoral Time Spent 15 min Referral Other (See Comment) (rounding) Spiritual Assessment Spiritual Observation Spirituality helpful Emotional Observation Coping well Hope Observation Specific hope focus Support Observation By Family Interventions Provided Active listening;Supportive presence Facilitated Verbalization of feelings Explored Expectations Event Management Consultant Education Event Management Consultant Service Available Yes Educated Patient Outcomes Patient Outcomes Reduced distress Plan of Care Continue Visiting PRN NUTRITION RISK SCREENING NOTE Nutrition Plan of Care: 1. Continue current diet order. 2. No oral supplements warranted at this time. 3. Monitor for significant weight changes. Monitor GI and skin integrity. 4. Monitor and encourage po intakes with goal of average po being 100%. 5. emergency medical technician basic to follow. George Tray Styles is a 53 y.o. 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 His lower brule kidney disease was noted to be presumed hepatorenal syndrome. His post-transplant course was noteworthy for nephrostomy tube (05/17/2022-09/10/2022) due to concern for ureteral stone. He presents as a direct admission for fever, cough, for infectious workup. Pt unavailable and information obtained via chart review Airway Controller Screening Pt's appetite is good. Pt with [...] time. Will continue to monitor. RHIANNON BirminghamR Pager:[phone] Internal Medicine Daily Progress Note Patient: George Styles, 1970, [id number] Physician: Evan Kelly MD, PGY-1, TM1 service [...] s/p combined Liver-kidney transplant on 04/13/20. His lower brule kidney disease was noted to be presumed [...] 2/2 renal function CAD: non-obstructive CAD on [facility] 2018. - continue home aspirin [...] as outlined above. Kevin Prince MD Pager [phone] Summary: Pharmacy Med Rec Department of Pharmacy [...] Provider: Zuly Bruno NP Pharmacy: [facility] Other Comments: Patient reported his Last Home Dose of mycophenolate & tacrolimus was on 08/28/23 at 0900. Patient reported he was taking Bactrim and benzonatate for fevers and a cough he was having. Please feel free to contact me with any further questions. Name: Heidy Chatman Phone #: [phone] Date/Time: 09/01/2023 2:01 PM Time Spent: 15 minutes Associated attestation - Matt Kramer RPh,PharmJenna - 09/01/2023 2:28 PM EDT Department of Pharmacy Admission Medication Reconciliation Note Patient: George Styles Room/Bed: 1062/A I have reviewed the home medication list with the Culture Media Laboratory Assistant. All changes to the home medication list have been updated in IHIS. Updated PERCUSSION INSTRUCTOR Med List: Prior to Admission Medications Prescriptions [...] questions. Name: Matt Kramer RPh,PharmD Phone #: [phone] Date/Time: 09/01/2023 2:28 PM Transplant Infectious Disease [...] crypto antigen, EBV PCR -follow pending histo, [id number] labs These recommendations were discussed with the primary team. Transplant ID (Team 3) will continue to follow. Please Epic message or page [phone] with questions. Evan White DO Transplant Infectious Diseases Internal Medicine Daily Progress Note Patient: George Styles, 1970, [id number] Physician: Evan Kelly MD, PGY-1, TM1 service [...] s/p combined Liver-kidney transplant on 04/13/20. His lower brule kidney disease was noted to be presumed [...] 2/2 renal function CAD: non-obstructive CAD on [facility] 2018. - continue home aspirin [...] 5.05 (H) 11/19/2018 Kevin Prince MD, SERA Aitchbone Breaker of Clinical Medicine [facility] Discharge Planning Patient Assessment [...] Yes Name and Contact information: Gian Styles ([phone]) Reviewed and Updated in Demographics? : Yes Outpatient Providers Does patient have a primary care physician? : Yes When was the patient's last PCP visit?: > 30 days Does the patient follow any specialists?: No Reviewed and updated Care Team?: Yes Patient Care Team: Zuly Bruno CNP as PCP - General Environment/Caregivers Is the patient from a facility or nursing home?: No Patient lives with: Alone Living [...] patient on Anticoagulation? : No [id number] [place] [address] - [address] [facility] [address] [facility] [id number] Hem Marker Does the patient or abrasives sales representative express financial concerns? : No Employed?: Disabled Coping/Stress Concerns about patient s coping and stress?: No Concerns about patient s caregiver s coping and stress?: No Values and Beliefs Cultural or spiritism practices that may impact discharge planning and/or [...] Plan 1. Identified self and role as Purchasing And Claims Supervisor. 2. Confirmed and updated demographics and treatment team. 3. Purchasing And Claims Supervisor will continue to follow with medical team/pt for any other additional discharge needs. Kasandra DON RN [facility] [phone] *Please note I am float CM and work Thursday and Thursday every other week. Please call [phone] for assist in my absence. Internal Medicine Daily Progress Note Patient: George Styles, 1970, [id number] Physician: Evan Kelly MD, PGY-1, TM1 service [...] Na/K+/Phos/Mg/Ca: 132/4.3/--/1.8/-- (08/30 236) Bun/Creat/Cl/CO2/Glucose: 16/1.56/102/20/123 (08/30 0236) Ptt/Pt/Inr: 29.3/13.8/1.1 (08/29 1232) Lab Results Component [...] s/p combined Liver-kidney transplant on 04/13/20. His lower brule kidney disease was noted to be presumed [...] 2/2 renal function CAD: non-obstructive CAD on [facility] 2018. - continue home aspirin [...] CREATSERUM 5.05 (H) 11/19/2018 Kevin Prince MD, [facility] Aitchbone Breaker of Clinical Medicine [facility] Internal Medicine Daily Progress Note Patient: George Styles, 1970, [id number] Physician: Laurel Serrano MD, PhD, PGY-3, TM1 [...] No rashes, no skin findings. Objective: Vitals: 08/29/23 0310 BP: 129/70 Pulse: 87 Resp: 16 Temp: [...] s/p combined Liver-kidney transplant on 04/13/20. His lower brule kidney disease was noted to be presumed [...] losartan 50mg BID CAD: non-obstructive CAD on [facility] 2018. - continue home aspirin [...] a sleep doctor. You will need to berry picker machine operator the oxygen concentrator when you leave [...] healthy foods. documented in this encounter [facility] 09-01-2023 Consult note Associated Order (s): IP CONSULT TO PULMONOLOGY Pulmonary Medicine Inpatient Consultation Reason for Consultation: bronch for infectious workup Requesting Physician: Dr. Prince Pulmonary Attending Physician: Dr. Diaz CURRENT HOSPITALIZATION: Admit Date: 08/28/2023 [facility] Hospital LOS: 4 days Impression/Recommendations: George [...] short period of time. 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 Other histories as documented in the [...] had any ill contacts. He traveled to [place] to [facility] specialty hospital in [facility]. REVIEW OF SYSTEMS A [...] Surgeon: Enzo Heart DO; Location: [facility] INTERVENTIONAL RADIOLOGY (VIR) LIVER TRANSPLANT, ORTHOTOPIC N/A 04/12/2020 Laterality: N/A; Surgeon: LU Palma; Location: [facility] SAME DAY SURGERY MAIN OR KIDNEY TRANSPLANT W/O TOGIAK NEPHRECTOMY N/A 04/12/2020 Laterality: N/A; Surgeon: LU Palma; Location: [facility] SAME DAY SURGERY MAIN OR OTHER SURGICAL [...] Alamo MD I can be reached via GroundedPower secure message (preferred) or Pager #[phone] documented in this encounter [facility] 08-28-2023 History and physical note Images from the original note were not included. Internal Medicine Admission History & Physical Patient: George Styles, 1970, [id number] Physician: Aric Turner MD, PGY1, Pager #[phone], TM service Date of face to face [...] So he went to see the transplant environmental engineering intern. He was found elevated Cr and asked [...] Appetite is ok now. Urine is about 6776-6874 ml every day. 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 His lower brule kidney disease was noted to be presumed [...] Urinary histoplasmosis - PJP, candid PCR - Tile Erector transplant ID Acute Kidney Injury with Kidney [...] losartan 50mg BID CAD: non-obstructive CAD on [facility] 2019. - continue aspirin 81mg daily, atorvastatin 20mg [...] Pierson, Luisa Steven, Renee Rivera, Daisha Max Victorian Literature Professor: Jos éMiguel Garnica All Txt: 04/13/2020 (Kidney), 04/13/2020 (Liver) [...] results found for: CYCLOSPORIN , CYCLOSPORIN2 , [id number] , CYCLORAND No results found for: SIROLIMUS [...] Rest as above. Kevin Prince MD Pager [phone] documented in this encounter [facility] 08-28-2023 History of Present illness Narrative Images from the original note were not included. 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 Victorian Literature Professor: Anayeli Burt Date of Liver Transplant: 04/13/2020 (Kidney), 04/13/2020 (Liver) 3 years 4 months post Liver/Kidney Transplant Primary Disease: Hypertensive Nephrosclerosis Transplant Senior Application Security Consultant: Erma Roe/ Daisha Max Primary Care [...] and faMOTIdine === None Specified Preferred Lab: [facility] Change in lab frequency / new [...] every 12 hours. ADDITIONAL INFORMATION: None Specified, [id number] [place] [address] - [address] [facility] [facility] [address] [facility] [address] [facility] [address] [id number] [place] [address] [address] [facility] [address] [facility] [address] [facility] [address], [address] [place] [address] ROS and SCREEN: Chest Pain: negative Cough: [...] 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 His lower brule kidney disease was noted to be presumed [...] Surgeon: Enzo Heart DO; Location: [facility] INTERVENTIONAL RADIOLOGY (VIR) LIVER TRANSPLANT, ORTHOTOPIC N/A 04/12/2020 Laterality: N/A; Surgeon: LU Palma; Location: [facility] SAME DAY SURGERY MAIN OR KIDNEY TRANSPLANT W/O TOGIAK NEPHRECTOMY N/A 04/12/2020 Laterality: N/A; Surgeon: LU Palma; Location: [facility] SAME DAY SURGERY MAIN OR OTHER SURGICAL [...] you have any questions. Steve Latham MD survey supervisor Division of Neph[facility] [...] Required: No Mailing/Pickup Date: 08/25/2023 Shipping Address: [address] [place] [address] [address] Contact Info: Specialty ([place]) [phone] Jakob [phone] [facility] [phone] David [phone] Bedside Delivery ([facility]) [phone] documented in this encounter [facility] 06-12-2023 History of Present illness Narrative Images from the original note were not included. George Styles is a 53 y.o. 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 No longer follows with a local environmental engineering intern. History of Present Illness: Since George was [...] and lab results. Rebeca Gutierrez MSN, RN, SEAM HAMMERER-BC, CCTN Certified Nurse Practitioner [facility] [address] [facility] [address] documented [facility] this [facility]23 Instructions JEANNA Hess - 06/12/2023 [...] Mycophenolate sod 180 mg Contact Info: Specialty ([place]) [phone] [facility] [phone] [facility] [phone] David [phone] Bedside Delivery ([facility]) [phone] [facility] RX OUTREACH ADVANCED: Call Information: Date and Time of Contact: 06/12/2023 9:43 AM Method of Contact: By Phone Contact Type: Prescriptions Contactor: [facility] Contactee: Patient Contact Outcome: Left message and Follow-up Shipping/Pickup: Medicare B Refill?: No Medication Name: Myco 180 Contact Info: Specialty ([place]) [phone] [facility] [phone] [facility] [phone] David [phone] Bedside Delivery ([facility]) [phone] [facility] RX OUTREACH ADVANCED: Call Information: Date and Time of Contact: 06/12/2023 10:08 AM Method of Contact: By Phone Contact Type: Prescriptions Contactor: [facility] OP Contactee: Patient Shipping/Pickup: Medicare B Refill?: No Medication Name: Mycophenolate 180mg DR Delivery Method: Air Delivery Location: Home Signature Required: No Mailing/Pickup Date: 06/17/2023 Shipping Address: [address] [address] Contact Info: Specialty ([place]) [phone] [facility] [phone] [facility] [phone] David [phone] Bedside Delivery ([facility]) [phone] documented in this encounter [facility] 03-12-2023 History of Present [...] Required: No Mailing/Pickup Date: 03/16/2023 Shipping Address: [address] [place] [address] Contact Info: Specialty ([place]) [phone] [facility] [phone] [facility] [phone] David [phone] Bedside Delivery ([facility]) [phone] [facility] RX OUTREACH ADVANCED: Call Information: [...] Required: No Mailing/Pickup Date: 03/19/2023 Shipping Address: [address] [place] [address] [address] Contact Info: Specialty ([place]) [phone] [facility] [phone] [facility] [phone] David [phone] Bedside Delivery ([facility]) [phone] documented in this encounter [facility] 03-10-2023 History of Present illness Narrative [facility] RX OUTREACH ADVANCED: Call Information: Date and Time of Contact: 03/10/2023 12:00 PM Method of Contact: By Phone Contact Type: Prescriptions Contactor: [facility] Contactee: Patient Contact Outcome: Left message and Call back later Shipping/Pickup: Medication Name: Mycophenolate ; Tacrolimus Contact Info: [place]ty ([place]) [phone] [facility] [phone] [facility] [phone] David [phone] Bedside Delivery ([facility]) [phone] documented in this encounter [facility] 03-10-2023 History of Present illness Narrative [facility] OUTREACH ADVANCED: Call Information: Date and Time of Contact: 03/10/2023 12:00 PM Method of Contact: By Phone Contact Type: Prescriptions Contactor: [facility] Contactee: Patient Contact Outcome: Left message and Call back later Shipping/Pickup: Medication Name: Mycophenolate ; Tacrolimus Contact Info: Specialty ([place]) [phone] [facility] [phone] [facility] [phone] David [phone] Bedside Delivery ([facility]) [phone] [facility] RX OUTREACH ADVANCED: Call Information: Date and Time of Contact: 03/12/2023 10:32 AM Method of Contact: By Phone Contact Type: Prescriptions Contactor: [facility] Contactee: Patient Contact Outcome: Left message Shipping/Pickup: Medication Name: Mycophenolate sodium (MYFORTIC) 180 MG Tab tacrolimus 0.5 mg Contact Info: [place]ty ([place]) [phone] Jakob [phone] [facility] [phone] David [phone] Bedside Delivery ([facility]) [phone] documented in this encounter [facility] 01-16-2023 History of Present illness Narrative -Referring Provider for today's consult: Daisha Max DO -Primary Care Provider: Zuly Bruno History of Present Illness George Styles is a 52 y.o. male who presents to the [facility] Transplant Hepatology Clinic today for follow-up [...] Surgeon: Enzo Heart DO; Location: [facility] INTERVENTIONAL RADIOLOGY (VIR) LIVER TRANSPLANT, ORTHOTOPIC N/A 04/12/2020 Laterality: N/A; Surgeon: LU Palma; Location: [facility] SAME DAY SURGERY MAIN OR KIDNEY TRANSPLANT W/O TOGIAK NEPHRECTOMY N/A 04/12/2020 Laterality: N/A; Surgeon: LU Palma; Location: [facility] SAME DAY SURGERY MAIN OR OTHER SURGICAL [...] 0.3 12/29/2022 Explant Pathology Pathologic Diagnosis A. Stebbins liver, orthotopic liver transplant resection (1458 gram): [...] A/P with IV contrast (06/27/2022): 1. Both lower brule kidneys are atrophic with improvement in right-sided [...] frequent nighttime urination, etc). Daisha Max DO [facility] Gastroenterology, Hepatology and Nutrition [facility] Pager: [phone] Images from the original note were not included. 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 Victorian Literature Professor: Anayeli Burt Date of Liver Transplant: 04/13/2020 (Kidney), 04/13/2020 (Liver) 2 years, 8 months post Liver/Kidney Transplant Primary Disease: Hypertensive Nephrosclerosis Transplant Senior Application Security Consultant: Steve Latham Primary Care physician: Zuly Bruno [...] levels: No results found for: CYCLOSPORIN, CYCLOSPORIN2, [id number], CYCLORAND No components found for: CYCLOSPORINE, 2HR [...] hours. ADDITIONAL INFORMATION: None Specified [id number] [place] [address] - [address] [facility] [address] [facility] [address], [address] [facility] [address] [facility][id number] [place] [address] [address] [facility] [address] [facility] [address] [facility] [address], [address] [facility] [address] ROS and SCREEN: Chest Pain: negative Cough: [...] and no hydronephrosis. Some reflux up the lower brule right ureter but good drainage of both transplant and lower brule ureter to the bladder. Nephrostomy tube was [...] transplant, orthotopic (N/A, 04/12/2020); kidney transplant w/o lower brule nephrectomy (N/A, 04/12/2020); and placement nephrostomy catheter [...] Negative for , diarrhea, constipation Genitourinary: See [place] Neurological: Negative for headaches. Lymph/Heme: Negative for [...] x 4, Normal strength. No edema. Skin: [place], warm, and dry. There are no rashes [...] and no hydronephrosis. Some reflux up the lower brule right ureter but good drainage of both transplant and lower brule ureter to the bladder. Nephrostomy tube was [...] MD 09/10/22 documented in this encounter [facility] 07-07-2022 [...] assisted off the table and escorted to neurology specialist where they made a follow up. [...] male with a DDRT to the [facility] in 2019. Nephrostomy tube placed 05/17/22 [...] to have transplant ureter with anastomosis to lower brule right ureter. Nephrostogram without filling defects and no hydronephrosis. Some reflux up the lower brule right ureter but good drainage of both transplant and lower brule ureter to the bladder. Nephrostomy tube was removed without issue. Patient does have some sensation of incomplete bladder emptying and occasional sensation in his right flank. PVR today was 33cc. Will re-evaluate urinary symptoms at next appointment. --continue Flomax --RTC in one month flow flow/PVR/IPSS Patient to call with any additional questions or concerns. Ryan Yepez MD 07/07/22 documented in this encounter [facility] 06-27-2022 History of Present illness [...] transplant, orthotopic (N/A, 04/12/2020); kidney transplant w/o lower brule nephrectomy (N/A, 04/12/2020); and placement nephrostomy catheter [...] Negative for , diarrhea, constipation Genitourinary: See [place] Neurological: Negative for headaches. Lymph/Heme: Negative for [...] Cranial Nerves grossly intact. Normal gait. Extremities: FRAKN[place] x 4, Normal strength. No edema. Skin: [place], warm, and dry. There are no rashes [...] male with a DDRT to the [facility] in 2019. Nephrostomy tube placed 05/17 [...] mass or enlargement. KIDNEYS: Marked atrophy of lower brule kidneys. Transplant right pelvic kidney with percutaneous [...] authenticated by: MÓNICA JIMENEZ Date: 2022-06-18 13:53 [facility] 06-12-2022 Instructions Anayeli Christianson RN - 06/12/2022 3:21 PM EDT Do not take apart/disrupt nephrostomy tube system. Call Interventional Radiology and/or on-call transplant nurse [phone] for instruction if need to flush (clot or decreased flow). Take cipro 500mg, one tablet, twice per day for 14 days documented in this encounter [facility] 06-12-2022 History of Present illness Narrative Images from the original note were not included. 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 Victorian Literature Professor: Anayeli Burt Date of Liver Transplant: 04/13/2020 (Kidney), 04/13/2020 (Liver) 2 year, 1 months post Liver/Kidney Transplant Primary Disease: Hypertensive Nephrosclerosis Transplant Senior Application Security Consultant: Steve Latham Primary Care physician: Zuly Bruno [...] or medical transport for appointment: no Did assignment desk editor confirm current address and insurance information is [...] LAB AND PHARMACY: None Specified [facility] [place] [address] - [address] [facility] [address] [facility] [address] [facility] [address], [address] [facility] [address] [id number] [place] [address] [address] [facility] [address] [facility] [address] [facility] [address], [address] [address] ROS and SCREEN: Chest Pain: negative Cough: negative SOB: negative Abd Pain: negative Nausea: positive Vomiting: negative Diarrhea: negative Constipation: negative Dysuria: positive Edema: negative Tremors: negative Headaches: negative Wound issues: negative Pt has neph tube w clear yellow urine. States he had a small clot that he dislodged QUESTIONS OR CONCERNS TO ADDRESS WITH PHYSICIAN: I saw George Feliz Jensen at the [facility] on 06/12/2022. Patient is a 52 y.o. 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 His lower brule kidney disease was noted to be presumed [...] Surgeon: Enzo Heart DO; Location: [facility] INTERVENTIONAL RADIOLOGY (VIR) LIVER TRANSPLANT, ORTHOTOPIC N/A 04/12/2020 Laterality: N/A; Surgeon: LU Palma; Location: [facility] SAME DAY SURGERY MAIN OR KIDNEY TRANSPLANT W/O TOGIAK NEPHRECTOMY N/A 04/12/2020 Laterality: N/A; Surgeon: LU Palma; Location: [facility] SAME DAY SURGERY MAIN OR OTHER SURGICAL [...] you have any questions. Steve Latham MD survey supervisor Division of Nephrology [facility] documented in this encounter [facility] 06-04-2022 Instructions TATI GROVE - 06/04/2022 11:04 AM EDT Thank you for joining us for your neph tube follow up. We recommend routine exchange every 8-10 weeks. Please reach out at [phone] when it is time to set your [...] provide teaching before his discharge Leon RN #[id number] Leon Cook RN Afternoon assessment completed at [...] Interdisciplinary Rounds/Family Conf Outcome: Ongoing Discussed with [facility] re: possible urine culture performed at [...] with questions. Evan Byrd MD Urology, PGY-2 #[id number] I certify that this patient requires inpatient [...] care explained choices provided On admission to [facility], a [...] Anne Dillard MD R10 [address] Jensen Orellana Please let's have a clear order on how the nephrostomy site dressing need to be changed when the patient goes home so we provide teaching before his discharge Leon GALLARDO #[id number] Leon Cook RN [facility] [...] cost is $0. Yanira Her RPh,PharmD Specialty ([place]) [phone] [facility] [phone] [facility] [phone] David [phone] [place] [phone] Bedside [place] [phone] Attending I saw George Styles at the [facility] on 05/19/2022. I saw and independently evaluated [...] Daily Progress Note Patient: George Styles, 1970, [id number] Physician: Liam Julian MD, PGY-3, Pager #[phone], [email or web address] Subjective/Interval History: No acute events overnight. Passed [...] Saldana MD Division of Hospital Medicine Pager [phone] Attending I saw George Styles at the [facility] on 05/18/2022. 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 Daya (Aggie Saldana MD Division of Hospital Medicine Pager [phone] Internal Medicine Daily Progress Note Patient: George Styles, 1970, [id number] Physician: Nishant Gamez MD, PGY2, Pager #[phone], [id number] Subjective/Interval History: Worsening creatinine this morning with [...] Saldana MD Division of Hospital Medicine Pager [phone] Attending I saw George Styles at the [facility] on 05/17/2022. I saw and independently evaluated [...] packet 17 g 17 g Oral Q12H Nishatn Gamez MD 17 g at 05/16/222047 senna [...] of chart and discussion with treatment team, Purchasing And Claims Supervisor has not identified needs at this [...] follow. Introduced self and role of the button riveter to patient. Provided emotional and spiritual support and the patient responded by sharing their experience and discussed the following: - Spirituality/Yazidism Affiliation: As a kid attended [employer] catholic but not a strong identity now - Family support - pt's brothers live close by Synoptic Meteorologist provided: - Supportive presence - Active listening - Validation of feelings/emotions Patient encouraged to request a button riveter as needed. Chaplains are available in-house 24 hours a day and 7 days a week. For urgent matters in [facility], please page [phone]. If the request is not urgent, please enter a consult. Consults are responded to within 24 hours. Angie Singh Mdiv, [facility] Burn Unit and Transplant [place] [address] Synoptic Meteorologist [facility] Synoptic Meteorologist [place] [phone] [email or web address] 22/06 [facility] Pager [phone] 22/06 Pager ,[facility], and Brock 1500 22/06 David Pager [phone] 05/16/22 1127 Clinical Encounter Type Visited With Patient Visit Type Introduction Pastoral Time Spent 15 min Referral Other (See Comment) (Rounding) Spiritual Assessment Spiritual Observation Spirituality helpful;Identifies as (see comment) (Yarsanism) Emotional Observation Coping well Hope Observation Hopeful and accepting Support Observation By Family Interventions Provided Active listening;Supportive presence Facilitated Verbalization of feelings;Sharing of life story;Identifying support system Explored Expectations Event Management Consultant Education Event Management Consultant Service Available Yes Educated Patient Outcomes Patient Outcomes Articulated purpose/meaning Plan of Care Continue Visiting PRN Internal Medicine Daily Progress Note Patient: George Styles, 1970, [id number] Physician: Nishant Gamez MD, PGY2, Pager #[phone], [id number] Subjective/Interval History: Overall feeling okay this morning. 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 [...] Supervision Transfer Assessment: Sit to Stand Transfer [place] Level: Sit->Stand: independent Skilled Intervention/Details: Sit->Stand: x1 from EOB Stand to Sit Transfer [place] Level: Stand->Sit: supervision Assistive Device: Stand->Sit: armed chair Skilled Rationale: Controlled descent for sitting, Verbal cues Gait/Functional Mobility: Gait Assessment [place] Level: Gait: supervision Assistive Device: Gait: gait belt Gait Distance (feet): 200 Gait Deviations Identified: decreased grace, decreased step length, decreased stride length Gait Skilled Rationale: verbal, upright posture Skilled Intervention/Details - Gait: Pt with steady gait without LOB or complaints of SOB. Stairs: Stairs Assessment [place] Level: Stair Negotiation: stand-by assist Assistive Device: Stair Negotiation: gait belt, left rail (ascending) Number of stairs: 9 Stairs Skilled Rationale: reciprocal pattern Outcome Score(s): CURRENT [facility] Basic Mobility Inpatient Short Form Turning over in bed: 4 - No Assistance Sitting/standing from chair: 4 - No Assistance Moving from lying on back to sittin - No Assistance Moving to and from bed to chair: 4 - No Assistance Walk in hospital room: 3 - A Little Assistance Climbing 3-5 steps with a railin - A Little Assistance CURRENT [facility] Mobility Raw Score: 22 CURRENT [facility] Mobility Functional Limitation/Modifier: 20.91% Currently [...] reported no concerns with discharging home with hilmar support. 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 IADL History IADLs: independent Primary Language: Paraguayan Home Management Skills: independent Meal Prep Responsibility: [...] Assessment: Transfer Assessment: Sit to Stand Transfer [place] Level: Sit->Stand: independent Skilled Rationale: Cues for increased safety Skilled Intervention/Details: Sit->Stand: x1 EOB Stand to Sit Transfer [place] Level: Stand->Sit: supervision Assistive Device: Stand->Sit: gait belt, armed chair Skilled Rationale: Verbal cues, Controlled descent for sitting, Cues for increased safety Skilled Intervention/Details: Stand->Sit: cues for hand placement and controlled descent Functional Mobility: Functional Mobility [place] Level: Functional Mobility/Gait: stand-by assist Assistive Device: Functional Mobility/Gait: gait belt Functional Mobility Distance: Distance needed for limited community mobility Functional Mobility Deficits: Activity tolerance, Balance, Decreased step length, Generalized weakness Functional Mobility Skilled Rationale: Verbal cues, Facilitate postural control Skilled Intervention/Details - Functional Mobility/Gait: cues for upright posture Outcome Score(s): CURRENT [facility] Daily Activity Inpatient Short Form Putting on/Taking Off Lower Body Clothin - A Little Assistance Bathin - A Little Assistance Toiletin - A Little Assistance Putting on/Taking Off Upper Body Clothin - No Assistance Groomin - No Assistance Eatin - No Assistance CURRENT [facility] Activity Raw Score: 21 [facility] [...] DAY SURGERY MAIN OR KIDNEY TRANSPLANT W/O TOGIAK NEPHRECTOMY N/A 04/12/2020 Laterality: N/A; Surgeon: LU [...] by: Mel Norman OT, OTR/L License #: [id number] pager # [phone] 05/20/2022 Upon discontinuation of Acute Care Occupational Therapy Services or patient discharge from the hospital this note represents the current Occupational Therapy Discharge Summary. documented in this encounter [facility] 05-20-2022 Hospital course Narrative Discharge [...] recent hospital stay at [facility]. As you may know, George Styles, [...] Saldana MD Division of Hospital Medicine p: [phone] f: [phone] CONSULTS DURING ADMISSION: IP CONSULT TO SURGERY - UROLOGY IP CONSULT TO NEPHROLOGY - TRANSPLANT (MEDICINE) IP CONSULT TO INTERVENTIONAL RADIOLOGY IP CONSULT TO PHYSICAL THERAPY IP CONSULT TO OCCUPATIONAL THERAPY IP CONSULT TO PHARMACY BEDSIDE DISCHARGE MED DELIVERY IMAGING / PROCEDURES / RESULTS: Should you require further information or copies of results or reports please contact Medical Information Management @ [phone] LABS AT TIME OF DISCHARGE: Lab Results [...] 08/16/2021 PATIENT'S MEDICAL HOME AT DISCHARGE: Zuly Torresjose e [address] / [place] [address] MEDICATIONS: Discharge Orders CT ABDOMEN/PELVIS WITHOUT CONTRAST [...] CAPS Generic drug: docusate Follow-up: Zuly Bruno, CURRENCY COUNTER [address] [facility] [address] Schedule an appointment as soon as possible for a visit Follow-up appointment with your, primary care physician within 7-10 days, after discharge. [address] [facility] [phone] Follow up The department of urology will call you with a follow up appointment. LU Ovalle [address] 11th Floor [facility] [phone] Follow up Please make a follow up appointment with Dr. Latham's office. Upcoming Appointments (up to five)-Some appointments for Medical Center outpatient clinics or diagnostic testing locations are not displayed below Provider Department Dept Phone 06/04/2022 10:40 AM IR [facility] Interventional Radiology Clinic [phone] 06/27/2022 1:[address] [facility] Department of Radiology Arrive at: Arrive to First Floor Registration Desk [phone] 06/27/2022 2:40 PM Ryan Yepez [facility] [place] Arrive at: Arrive to 2nd Floor, Registration [address] 10/31/2022 1:00 PM [facility] [phone] 01/16/2023 9:40 AM TRANSPLANT HEPATOLOGY 3, [facility] [phone] Associated attestation - Daya Saldana MD - [...] Saldana MD Division of Hospital Medicine Pager [phone] documented in this encounter [facility] [...] be changed by Interventional Radiology. Please call [phone] to schedule this appointment and with any [...] Ongoing Goal: Interdisciplinary Rounds/Family Conf Outcome: [facility] Note Formatting of this n ote might be different from the original. Discussed with [facility] re: possible urine culture performed at their facility. However, based on urinalysis completed at that time, which was only notable for hematuria, culture was not performed and sample no longer feasible for culture. Liam Julian MD Internal Medicine/Pediatrics, PGY-3 [facility] 05-18[facility]22 Note Formatting of this n [...] symptoms at this time. notified and aware. [facility] 05-17-2022 Note Formatting of this n ote might be different from the original. At 0900, I rounded with Dr. Gamez and Dr. Saldana. At that time I checked Mr. Styles's vital signs. His pulse oximeter was low and he was tachypneic. Verbal order at bedside to put nasal cannula on starting at 2liters oxygen and to provide incentive spirometer. [facility] 05-17-2022 Note Formatting of this [...] with questions. Evan Byrd MD Urology, PGY-2 #[id number] [facility] Work [...] care will be discharge to home. [facility] 05-16-2022 Consult note Associated Order (s): IP CONSULT TO NEPHROLOGY - TRANSPLANT (MEDICINE) I saw George Styles at the [facility] on 05/16/2022. Reason for Consultation: kidney stone [...] he was given flomax and sent home. Bryant better but noticed more pain and decreased [...] (MEDICINE) I saw George Styles at the [facility] on 05/16/2022. Reason for Consultation: kidney stone [...] he was given flomax and sent home. Bryant better but noticed more pain and decreased [...] states he went to his local ED [place] and he was put on Flomax and he did improve. Pt states last night he was unable to void with severe right sided abd pain. Pt states nausea and no vomiting or fevers. Pt states he went back to [place] ED at 0100 and they placed a [...] orthotopic (N/A, 04/12/2020); and kidney transplant w/o lower brule nephrectomy (N/A, 04/12/2020). 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 The lower brule kidneys are progressively atrophic bilaterally compared to [...] of 06/14/2020 are no longer present. The lower brule distal right ureter is decompressed beyond this [...] with surgical history for renal graft and lower brule right urinary drainage, as a discrete ureteroneocystostomy is not identified, and the graft may be draining via a ureteroureterostomy. Urology consultation recommended. 3. The lower brule kidneys are bilaterally atrophic, with right renal sinus calcifications consistent with nonobstructing right lower brule renal calculi up to 6 mm. Normal [...] PGY-3, Department of Urologic Surgery Pager #: [phone] Associated attestation - Ryan Yepez MD - [...] Report given to Kallie RN at 10 [facility] 05-15-2022 [...] of care. Gian Villatoro MD 05/15/222003 Dr Schenider made aware of only 30 ml urine [...] DAY SURGERY MAIN OR KIDNEY TRANSPLANT W/O TOGIAK NEPHRECTOMY N/A 04/12/2020 Laterality: N/A; Surgeon: LU [...] Schneider MD Resident 05/15/222030 Pt arrives from [facility] with kidney stones. Pt states he had right lower abd pain and right flank pain with blood in his urine since Thursday. Pt states he went to his local ED [place] and he was put on Flomax and he did improve. Pt states last night he was unable to void with severe right sided abd pain. Pt states nausea and no vomiting or fevers. Pt states he went back to [place] ED at 0100 and they placed a matias and CT scan completed and multiple kidney stones noted. [facility] had liver and kidney transplant in 03/2020. documented in this encounter [facility] 05-15-2022 History and physical note Internal Medicine Admission History & Physical Patient: George Styles, 1970, [id number] Physician: Evan Bennett MD, PGY1, Pager #[phone], GM 4 service Date of face to [...] N/A; Surgeon: LU Palma; Location: [facility] SAME DAY SURGERY MAIN OR KIDNEY TRANSPLANT W/O TOGIAK NEPHRECTOMY N/A 04/12/2020 Laterality: N/A; Surgeon: LU Palma; Location: [facility] SAME DAY SURGERY MAIN OR OTHER SURGICAL [...] erythema: Skin: No jaundice or rash Neuro: securities sales associate 3-7, 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 Strength grossly [...] dilation of the calyces may represent narrowing/partial [id number] ofthe ureter and mild hydronephrosis or sequela [...] History & Physical Patient: George Styles, 1970, [id number] Physician: Evan Bennett MD, PGY1, Pager #[phone], GM 4 service Date of face to [...] N/A; Surgeon: LU Palma; Location: [facility] SAME DAY SURGERY MAIN OR KIDNEY TRANSPLANT W/O TOGIAK NEPHRECTOMY N/A 04/12/2020 Laterality: N/A; Surgeon: LU Palma; Location: [facility] SAME DAY SURGERY MAIN OR OTHER SURGICAL [...] erythema: Skin: No jaundice or rash Neuro: securities sales associate 3-7, 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 Strength grossly [...] dilation of the calyces may represent narrowing/partial [id number] ofthe ureter and mild hydronephrosis or sequela [...] states he went to his local ED [place] and he was put on Flomax and he did improve. Pt states last night he was unable to void with severe right sided abd pain. Pt states nausea and no vomiting or fevers. Pt states he went back to [place] ED at 0100 and they placed a [...] orthotopic (N/A, 04/12/2020); and kidney transplant w/o lower brule nephrectomy (N/A, 04/12/2020). 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 The lower brule kidneys are progressively atrophic bilaterally compared to [...] of 06/14/2020 are no longer present. The lower brule distal right ureter is decompressed beyond this [...] with surgical history for renal graft and lower brule right urinary drainage, as a discrete ureteroneocystostomy is not identified, and the graft may be draining via a ureteroureterostomy. Urology consultation recommended. 3. The lower brule kidneys are bilaterally atrophic, with right renal sinus calcifications consistent with nonobstructing right lower brule renal calculi up to 6 mm. Normal [...] PGY-3, Department of Urologic Surgery Pager #: [phone] Associated attestation - Ryan Yepez MD - [...] concerning no urine output via matias catheter. [facility] 05-15-2022 [...] Thursday and was sent home with [facility]. He went back to that ED [...] Medicine CHIEF COMPLAINT Kidney Stone HPI George tSyles is a 52 y.o. male with past [...] DAY SURGERY MAIN OR KIDNEY TRANSPLANT W/O TOGIAK NEPHRECTOMY N/A 04/12/2020 Laterality: N/A; Surgeon: LU [...] 05-15-2022 Emergency department Note Pt arrives from [facility] with kidney stones. Pt states he had right lower abd pain and right flank pain with blood in his urine since Thursday. Pt states he went to his local ED [place] and he was put on Flomax and he did improve. Pt states last night he was unable to void with severe right sided abd pain. Pt states nausea and no vomiting or fevers. Pt states he went back to [place] ED at 0100 and they placed a [...] Required: No Mailing/Pickup Date: 03/17/2022 Shipping Address: [address] [place] [address] [address] Contact Info: Specialty ([place]) [phone] Jakob [phone] [facility] [phone] David [phone] Bedside Delivery ([facility]) [phone] documented in this encounter [facility] [...] 05/16/22 Goal Progress: Satisfactory Contact Info: Specialty ([place]) [phone] [facility] [phone] [facility] [phone] [facility] [phone] Bedside Delivery ([facility]) [phone] [facility]: Call Information: Date [...] Location: Home Signature Required: Yes Shipping Address: [address] [place] [address] [address] [facility] [address] Contact Info: Specialty ([place]) [phone] Jakob [phone] [facility] [phone] [facility] [phone] Bedside Delivery ([facility]) [phone] documented in this encounter [facility] Evaluation note Diagnosis FAYE (acute kidney injury)- Primary Acute kidney failure, unspecified Hydronephrosis due to obstruction of ureteral orifice Hydronephrosis due to obstruction of ureteral orifice FAYE (acute kidney injury) Acute kidney failure, unspecified [facility] Diagnosis Follow-up exam- Primary Unspecified [...] of prostate [facility] Abnormal blood chemistry- Primary Other abnormal blood chemistry Liver transplant recipient Kidney replaced by transplant Immunosuppressed status Unspecified disorder of immune mechanism Aftercare following organ transplant documented [facility] encounter [facility] Diagnosis Kidney replaced by [...] Fever Fever, unspecified documented in this encounter [facility] Diagnosis Bilateral lower extremity edema- Primary 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) Atherosclerosis 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) Atherosclerosis of aorta Obesity (BMI 30-39.9) DARLENE (obstructive sleep apnea) Obstructive sleep apnea (adult) (pediatric) Tremor Abnormal involuntary movements Immunocompromised (CMS/HCC) Unspecified immunity deficiency Primary hypertension (CMS/HCC) Unspecified essential hypertension Shortness of breath documented in this encounter [facility] HealthcareEvaluation note* Diagnosis Pleural effusion on right- [...] [facility] Diagnosis Heart failure, diastolic, acute- Primary Acute diastolic heart failure documented in this encounter [facility] (narrative)* Consultation (Routine) - New Request Specialty Diagnoses / Procedures Referred By Deni edwards Referred To Contact Interventional Radiology Diagnoses Hydronephrosis due to obstruction of ureteral orifice Daya Saldana MD [address] [place] [address] Referral ID Status Reason Start Date Expiration Date V isits Requested Visits Authorized [id number] New Request 05/18/2022 06/12/2023 1 1 * Radiology (Emergency) - New Request Specialty Diagnoses / Procedures Referred By Contac t Referred To Contact Procedures US RENAL TRANSPLANT SCAN Daya Saldana MD [address] [place] [address] Referral ID Status Reason Start Date Expiration Date V isits Requested Visits Authorized [id number] New Request 05/16/2022 06/10/2023 1 1 * Consultation (Routine) - New Request Specialty Diagnoses / Procedures Referred By Contac t Referred To Contact Urology Diagnoses FAYE (acute kidney injury) Ryan Yepez MD [address] [place] [address] [address] [place] [address] Referral ID Status Reason Start Date Expiration Date V isits Requested Visits Authorized [id number] New Request 05/16/2022 06/10/2023 1 1 * MRI/CAT Scan (Routine) - New Request Specialty Diagnoses / Procedures Referred By Contac t Referred To Contact Diagnoses FAYE (acute kidney injury) Procedures CT ABDOMEN/PELVIS WITHOUT CONTRAST CHG CT SCAN,ABDOMENT AND PELVIS,W/O CONTRAST Ryan Yepez MD [address] [place] [address] [address] [place] [address] Referral ID Status Reason Start Date Expiration Date V isits Requested Visits Authorized [id number] New Request 05/16/2022 06/10/2023 1 1 * (Routine) - Pending Review Specialty Diagnoses / Procedures Referred By Contac t Referred To Contact Procedures PLATELET MONITORING PER PROTOCOL Daya Saldana MD [address] [place] [address] Referral ID Status Reason Start Date Expiration Date V isits Requested Visits Authorized [id number] Pending Review 05/15/2022 06/09/2023 1 1 * (Routine) - Pending Review Specialty Diagnoses / Procedures Referred By Contac t Referred To Contact Procedures DVT/VTE RISK ASSESSMENT Daya Saldana MD [address] [place] [address] [place] [address] Referral ID Status Reason Start Date Expiration Date V isits Requested Visits Authorized [id number] Pending Review 05/15/2022 06/09/2023 1 1 * (Routine) Specialty Diagnoses / Procedures Referred By Contac t Referred To Contact Evan Bennett MD [address] [place] [address] Referral ID Status Reason Start Date Expiration Date Visits Re quested Visits Authorized * (Routine) Specialty Diagnoses / Procedures Referred By Contac t Referred To Contact Evan Bennett MD [address] [place] [address] Referral ID Status Reason Start Date Expiration Date Visits Re quested Visits Authorized [facility] for referral (narrative)* Consultation (Routine) - New Request Specialty Diagnoses / Procedures Referred By Contac t Referred To Contact Sleep Medicine Diagnoses Hypoxia Kevin Prince MD [address] [place] [address] Referral ID Status Reason Start Date Expiration Date V isits Requested Visits Authorized [id number] New Request 09/10/2023 10/04/2024 1 1 * MRI/CAT Scan (Routine) - New Request Specialty Diagnoses / Procedures Referred By Contac t Referred To Contact Diagnoses Histoplasmosis Procedures CT CHEST WITHOUT CONTRAST CHG DIAGNOSTIC COMPUTED TOMOGRAPHY THORAX W/O Kevin Zarate MD [address] [place] [address] Referral ID Status Reason Start Date Expiration Date V isits Requested Visits Authorized [id number] New Request 09/10/2023 10/04/2024 1 1 * Radiology (Routine) - New Request Specialty Diagnoses / Procedures Referred By Contac t Referred To Contact Procedures US RENAL TRANSPLANT SCAN Steve Latham MBBS [address] [place] [address] Referral ID Status Reason Start Date Expiration Date V isits Requested Visits Authorized [id number] New Request 08/29/2023 09/22/2024 1 1 * (Routine) - New Request Specialty Diagnoses / Procedures Referred By Contac t Referred To Contact Procedures PLATELET MONITORING PER PROTOCOL Steve Latham MBBS [address] [place] [address] Referral ID Status Reason Start Date Expiration Date V isits Requested Visits Authorized [id number] New Request 08/28/2023 09/21/2024 1 1 * (Routine) - New Request Specialty Diagnoses / Procedures Referred By Deni edwards Referred To Contact Procedures DVT/VTE RISK ASSESSMENT Steve Latham MBBS [address] [place] [address] Referral ID Status Reason Start Date Expiration Date V isits Requested Visits Authorized [id number] New Request 08/28/2023 09/21/2024 1 1 [facility] [...] have questions, call the transplant social science instructor Fidelina Pierson. in this encounter* Patient Instructions - Sophie Cary RN - 10/12/2018 11:09 AM EST You have been seen in the pre-transplant evaluation clinic by Dr. Restrepo and Sophie Cary. Sophie Cary is your pre-logistics coordinator she can be reached at [phone] at any time for questions during the pre-transplant process. Your evaluation is complete pendin. Abdominal ultrasound. 2. 6 minute walk test. 3. Cardiology evaluation. Additionally, your coal hauler will recommend testing to screen for coronary artery disease. This will be scheduled for you after your cardiology visit. 4. Your coordinator will be requesting record from your last dental visit, colonoscopy and EGD. 5. Please work to complete social work recommendations. Your social science instructor will be contacting you to follow up on your progress. 6. You have also been referred for a kidney transplant. An appointment will be scheduled for you sari evaluated in the kidney transplant clinic after you have satisfied requirements dictated by your[employer]Works company. Once your testing is complete, we [...] ___ Other Name MRN * Christin Elizabeth, SEAM HAMMERER-CURRENCY COUNTER - 10/19/2018 9:00 AM EST Formatting of this note may be different from the original. History of Present Illness: Chief Complaint Patient presents with Follow-up Cirrhosis George Styles is a 48 y.o. male who [facility] G[facility] today regarding his diagnosis/chief complaint(s) of Cirrhosis secondary to ETOH, with ESRD follows with Dr. Orr. Currently undergoing evaluation for liver/kidney transplant. Has been seen in transplant clinic for eval. Still undergoing pre testing. Diagnosed in April 2018. Last drink was immediately prior to hospital admission in [place] for ACLF. Hospital course notable for ARF [...] (human immunodeficiency virus infection); Hyperlipidemia; Hyperthyroidism; Hypothyroidism; DE (myocardial infarction); Migraine; DARLENE (obstructive sleep apnea); [...] kidney transplant evaluation. Pt was AOx3. Transplant Airport Tower Controller role/function was explained and reviewed. The patient was informed that the results of this assessment will be shared with the referring provider and the transplant team. The patient verbalized understanding of this information. The [facility] psychosocial assessment consent form has been explained to patient and has been signed. Pt is completing this evaluation with brother (David) in the Outpatient setting. SWK educated pt on the benefits of completing/filing advanced directives and resources were offered. Pt identifies with ORTHODOXY muslim. Pt confirms being a [place] Citizen. Pt.'s primary language is Paragu[place]. Pt confirms the ability to read,write, and understand [place]. Pt denies potential donors. Donor cards and [...] related disease etoh cirrohosis April dx in [facility] for thirty days. Pt reports learning [...] as well as referred him to pre logistics coordinator. Pt and support demonstrated moderate understanding of pt s current medical regimen and healthhistory. Patient and social work discussed the importance of pt follow up at the transplant center for ongoing care and discussed benefits of having access to resources available including medication assistance and financial counseling. Patient and support received transplant education material. Amritk encouraged patient to review all medical information [...] Patient's brother David is a self employed general contractor. Additional support includes his other brother Tyshawn and his Mary live fifteen minutes away. Of note Mary is a mattress maker for a [employer] is available to assist general manager land department. He confirms being comfortable asking for [...] in 2010, he was employed by the [email or web address]. He has access to SSDI payment (SSDI starts in November) in regards to financial means pre/ post-transplant. Pt confirms (meeting bills currently, ) being able to meet daily needs. Patient's brother asking for additional information on community resources, food stamps and [place]. Refer him to pt.'s dialysis center and the [facility]. Hereports access to Medicaid. Pt. denies history. [...] does report a history of AoD treatment, 2000 court ordered treatment after a DUI charge [facility] in [place], court ordered treatment in 2001 and in [...] provided with local AOD resources, [facility] AOD informational packet. Pt was referred for [...] new visit Date of service: 10/12/2018 -Referring gas welder for today's consult: -Primary Care Provider: Zuly Bruno CC: Chief Complaint Patient presents with Liver Recipient Evaluation History of Present Illness George Styles is a 48 y.o. male who presents to the [facility] liver transplant surgery clinic today for [...] processes progressing rapidly Unknown * Elisa Tiwari, RN RESOURCE NURSE - 10/12/2018 10:00 AM EST Timed up and go 9.9 seconds Coat Joiner Lockstitch Left 52.8 pounds Right 44.9 pounds Waist circ 38.5 inches * Sophie Cary, SAMI - 10/12/2018 10:00 AM EST Formatting of this note may be different from the original. Patient George Styles ([id number]), accompanied by his brother, was seen on [...] any further questions. Sophie GUERINN, RN Liver Victorian Literature Professor Etiology: ETOH HCC: No ETOH: Yes [...] Yovani Orr MD [address] [address] Status Reason Specialty Diagnoses / Procedures Referred By Contact Referred To Contact New Request Diagnoses Cirrhosis of liver with ascites, unspecified hepatic cirrhosis type Procedures US ABDOMEN RUQ/LIVER/GB Yovani Orr MD [address] [address] Specialty Diagnoses / Procedures Referred By Contac t Referred To Contact Diagnoses FAYE (acute kidney injury) Procedures CT ABDOMEN/PELVIS WITHOUT CONTRAST CHG CT SCAN,ABDOMENT AND PELVIS,W/O CONTRAST Central Scheduling [address] [place] [address] Referral ID Status Reason Start Date Expiration Date V isits Requested Visits Authorized [id number] Pending Review 05/16/2022 06/10/2023 1 1 Specialty Diagnoses / Procedures Referred By Contac t Referred To Contact Diagnoses Other hydronephrosis Procedures [facility] FOR UROLOGY Ryan Yepez MD [address] [facility] [address] [place] [address] Referral ID Status Reason Start Date Expiration Date V isits Requested Visits Authorized [id number] New Request 07/07/2022 08/01/2023 1 1 Specialty Diagnoses / Procedures Referred By Contac t Referred To Contact Procedures DIRECT ADMIT REQUEST Steve Latham MBBS [address] [place] [address] Referral ID Status Reason Start Date Expiration Date V isits Requested Visits Authorized [id number] New Request 08/28/2023 09/21/2024 1 1 Specialty Diagnoses / Procedures Referred By Contac t Referred To Contact Radiology Diagnoses DARLENE (obstructive sleep apnea) Primary hypertension (CMS/HCC) Bilateral lower extremity edema Shortness of breath Procedures Echocardiogram 2D complete Zuly Bruno NP [address] [place] [address] Referral ID Status Reason Start Date Expiration Date Visits Requested Visits Authorized [id number] Incomplete Perform Procedure 01/06/2024 07/04/2024 1 1 Specialty Diagnoses / Procedures Referred By Contac t Referred To Contact Procedures US IMAGING REGIONAL ANESTHESIA Kehinde Gutierrez MD [address] [place] [address] Referral ID Status Reason Start Date Expiration Date V isits Requested Visits Authorized [id number] New Request 01/22/2024 02/15/2025 1 1 Specialty Diagnoses / Procedures Referred By Contac t Referred To Contact Cardiovascular Medicine Diagnoses Heart failure, diastolic, acute Kelvin Pacheco MD, MBBS [address] [place] [id number] Referral ID Status Reason Start Date Expiration Date V isits Requested Visits Authorized [id number] New Request 01/20/2024 02/13/2025 1 1 Specialty Diagnoses / Procedures Referred By Contac t Referred To Contact Procedures US ABDOMEN LIVER DOPPLER US ABDOMEN LIVER TRANSPLANT DOPPLER Timothy Joseph MD [address] [facility] [address] [place] [address] Referral ID Status Reason Start Date Expiration Date V isits Requested Visits Authorized [id number] New Request 01/16/2024 02/09/2025 1 1 Specialty Diagnoses / Procedures Referred By Contac t Referred To Contact Procedures DVT/VTE RISK ASSESSMENT Kelvin Pacheco MD, MBBS [address] [place] [address] Referral ID Status Reason Start Date Expiration Date V isits Requested Visits Authorized [id number] New Request 01/16/2024 02/09/2025 1 1 Specialty Diagnoses / Procedures Referred By Contac t Referred To Contact Procedures PLATELET MONITORING PER PROTOCOL Kelvin Pacheco MD, MBBS [address] [place] [address] Referral ID Status Reason Start Date Expiration Date V isits Requested Visits Authorized [id number] New Request 01/16/2024 02/09/2025 1 1 Referral ID Status Reason Start Date Expiration Date V isits Requested Visits Authorized [id number] New Request 01/16/2024 02/09/2025 1 1 Specialty Diagnoses / Procedures Referred By Contac t Referred To Contact Procedures ECG Kelvin Pacheco MD, MBBS [address] [place] [address] Referral ID Status Reason Start Date Expiration Date V isits Requested Visits Authorized [id number] New Request 01/16/2024 02/09/2025 1 1 Advance Directives No Advanced Directives Records FoundDocuments on File Type Date Recorded 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 Expl 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 Advance Directives and Living Will Power of Associate Of Science In Nursing Latest Code Status on File Code Status [...] Yovani Orr MD [address] [address] Status Reason Specialty Diagnoses / Procedures Referre d By Contact Referred To Contact Denied Diagnoses Alcoholic cirrhosis, unspecified whether ascites present Pre-transplant evaluation for liver transplant Procedures MRI ABDOMEN WITH CONTRAST WI MRI, ABDOMEN W/CONTRAST Yovani Orr MD [address] [address] Reason Comments Liver Recipient Evaluation Status Reason Specialty Diagnoses / Procedures Referred By Contact Referred To Contact New Request Transplant / Transplant Surgery Procedures PRE NEW PATIENT Yovani Orr MD [address] [address] Alfredito Restrepo MD [address], [place] [address] Reason Comments Reschedule Reason Comments Outside Medical Records Request Reason Comments Social Work Follow-up Reason Comments Kidney Stone Specialty Diagnoses / Procedures Referred By Deni edwards Referred To Contact Diagnoses Obstructing kidney stone, s/p kidney transplant 2019 Daya Saldana MD [address] [place] [address] [facility] [address] [place] [address] Referral ID Status Reason Start Date Expiration Date Visits Re quested Visits Authorized [id number] 1 1 Reason Comments Follow-up Reason Comments Kidney Recipient Follow-up Liver Recipient Follow-up Reason Comments Consult Reason Comments New Patient Hospital follow up Specialty Diagnoses / Procedures Referred By Deni edwards Referred To Contact Urology Diagnoses hosp fu with [address] prior Procedures NEW TO DOC/RET PATIENT Zuly Burno, CURRENCY COUNTER [address] [place] [address] Ryan Yepez MD [address] [place] [address] [address] [place] [address] Referral ID Status Reason Start Date Expiration Date Visits Re quested Visits Authorized [id number] Closed 06/27/2022 07/22/2023 1 1 Specialty Diagnoses / Procedures Referred By Contac t Referred To Contact Diagnoses FAYE (acute kidney injury) Procedures CT ABDOMEN/PELVIS WITHOUT CONTRAST CHG CT SCAN,ABDOMENT AND PELVIS,W/O CONTRAST Central Scheduling [address] [place] [phone] Referral ID Status Reason Start Date Expiration Date V isits Requested Visits Authorized [id number] Pending Review 05/16/2022 06/10/2023 1 1 Reason Comments Follow-up Specialty Diagnoses / Procedures Referred By Contac t Referred To Contact Urology Diagnoses 1 week fu post NT clamp Procedures RETURN PATIENT Zuly Bruno, CURRENCY COUNTER [address] [place] [address] Ryan Yepez MD [address] [place] [address] [address] [place] [address] Referral ID Status Reason Start Date Expiration Date Visits Requested Visits Authorized [id number] Authorized - [facility] 07/07/2022 08/01/2023 2 2 Specialty Diagnoses / Procedures Referred By Contac t Referred To Contact Diagnoses Other hydronephrosis Procedures [facility] Ryan Yepez MD [address] [place] [address] [address] [place] [address] Referral ID Status Reason Start Date Expiration Date V isits Requested Visits Authorized [id number] New Request 07/07/2022 08/01/2023 1 1 Specialty Diagnoses / Procedures Referred By Contac t Referred To Contact Urology Diagnoses 1 week fu post NT clamp Procedures RETURN PATIENT Zuly Bruno, CURRENCY COUNTER [address] [place] [address] Ryan Yepez MD [address] [facility] [address] [place] [address] Referral ID Status Reason Start Date Expiration Date Visits Re quested Visits Authorized [id number] Closed 07/07/2022 08/01/2023 2 2 Reason Comments Liver Recipient Follow-up Reason Comments Kidney Recipient Follow-up Reason Comments Kidney Recipient Follow-up Specialty Diagnoses / Procedures Referred By Contac t Referred To Contact Diagnoses Kidney replaced by transplant Steve Latham MBBS [address] [place] [address] [facility] [address] [place] [address] Referral ID Status Reason Start Date Expiration Date Visits Re quested Visits Authorized [id number] 1 1 Specialty Diagnoses / Procedures Referred By Contac t Referred To Contact Diagnoses Pleural effusion on right PNEUMONIA- HX LIVER AND KIDNEY TRANSPLANT Kevin Prince MD [address] [place] [address] [facility] [address] [place] [address] Referral ID Status Reason Start Date Expiration Date Visits Re quested Visits Authorized [id number] 1 1 Reason Comments New Patient Specialty Diagnoses / Procedures Referred By Contac t Referred To Contact Cardiovascular Medicine Diagnoses Heart failure, diastolic, acute Kelvin Pacheco MD, MBBS [address] 1[address] [place] [address] Referral ID Status Reason Start Date Expiration Date Visits Requested Visits Authorized [id number] Authorized - 01/20/2024 02/13/2025 5 5 (unrecognized sect ion and content) No Status Records FoundNo Status Records FoundNo Status Records FoundNo Status Records FoundNo Status Records FoundNo Status Records Found INFORMATION SOURCE (unrecogn ized section and content) DATE CREATED AUTHOR 01/07/2020 Karlie Lopez pitdenny DATE CREATED AUTHOR AUTHOR'S ORGANIZ ATION 01/27/2021 [facility] DATE CREATED AUTHOR AUTHOR'S ORGANIZ ATION 05/11/2023 [facility] DATE CREATED AUTHOR AUTHOR'S ORGANIZ ATION 04/19/2024 [facility] EPIC DATE CREATED AUTHOR AUTHOR'S ORGANIZ ATION 05/15/2024 [facility] DATE CREATED AUTHOR AUTHOR'S ORGANIZ ATION 05/25/2024 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 Specialty Start Date End Date Zuly Bruno CNP PCP - General 07/19/18 Comfort Rivera, [facility] [address] [facility] [address] [place] [address] Pharmacist Pharmacist 05/16/20 Angel Carpio RP,PharmD Pharmacist Pharmacist 05/16/20 Te Leigh RP,PharmD Pharmacist Pharmacist 01/09/21 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 Relationship Specialty Start Date End Date Zuly Bruno CNP PCP - General 07/19/18 Comfort Rivera, [facility] [address] [facility] [address] [place] [address] Pharmacist Pharmacist 05/16/20 Angel Carpio RP,PharmD Pharmacist Pharmacist 05/16/20 Te Leigh RP,PharmD Pharmacist Pharmacist 01/09/21 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 Relationship Specialty Start Date End Date Zuly Bruno CNP PCP - General 07/19/18 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 Relationship Specialty Start Date End Date Zuly Bruno CNP PCP - General 07/19/18 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 Relationship Specialty Start Date End Date Zuly Bruno CNP PCP - General 07/19/18 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 Relationship Specialty Start Date End Date Zuly Bruno CNP PCP - General 07/19/18 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 Relationship Specialty Start Date End Date Zuly Bruno CNP PCP - General 07/19/18 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 Relationship Specialty Start Date End Date Zuly Bruno CNP PCP - General 07/19/18 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 Relationship Specialty Start Date End Date Zuly Bruno CNP PCP - General 07/19/18 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 Relationship Specialty Start Date End Date Zuly Bruno CNP PCP - General 07/19/18 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 Relationship Specialty Start Date End Date Zuly Bruno CNP PCP - General 07/19/18 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 Relationship Specialty Start Date End Date Zuly Bruno CNP PCP - General 07/19/18 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 Relationship Specialty Start Date End Date Zuly Bruno CNP PCP - General 07/19/18 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 Relationship Specialty Start Date End Date Zuly Bruno CNP PCP - General 07/19/18 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 Relationship Specialty Start Date End Date Zuly Bruno CNP PCP - General 07/19/18 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 Relationship Specialty Start Date End Date FloreslatishaZuly tipton CNP PCP - General 07/19/18 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 Relationship Specialty Start Date End Date KristopherlydiaZuly dorantes CNP PCP - General 07/19/18 Evan White DO [facility] [place] [address] Infectious Disease Infectious Disease 09/09/23 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 Relationship Specialty Start Date End Date KristopherlydiaZuly dorantes CNP PCP - General 07/19/18 Evan White DO [facility] [place] [address] Infectious Disease Infectious Disease 09/09/23 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 Relationship Specialty Start Date End Date Zuly Bruno CNP PCP - General 07/19/18 Evan White DO [address] [place] [address] Infectious Disease Infectious Disease 09/09/23 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 Relationship Specialty Start Date End Date Momo Verdugo MD PCP - General Family Medicine 05/21/23 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 Relationship Specialty Start Date End Date Momo Verdugo MD PCP - General Family Medicine 05/21/23 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 Relationship Specialty Start Date End Date Momo Verdugo MD PCP - General Family Medicine 05/21/23 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 Relationship Specialty Start Date End Date Zuly Bruno CNP PCP - General 07/19/18 Evan White DO [address] [place] [address] Infectious Disease Infectious Disease 09/09/23 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 Relationship Specialty Start Date End Date Zuly Bruno CNP PCP - General 07/19/18 Evan White DO [address] [place] [address] Infectious Disease Infectious Disease 09/09/23 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 Relationship Specialty Start Date End Date Zuly Bruno CNP PCP - General 07/19/18 Evan White DO [address] [place] [address] Infectious Disease Infectious Disease 09/09/23 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 Relationship Specialty Start Date End Date Zuly Bruno CNP PCP - General 07/19/18 Evan White DO [address] [place] [address] Infectious Disease Infectious Disease 09/09/23 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 Relationship Specialty Start Date End Date Zuly Bruno CNP PCP - General 07/19/18 Evan White DO [address] [place] [address] Infectious Disease Infectious Disease 09/09/23 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 Relationship Specialty Start Date End Date Zuly Bruno CNP PCP - General 07/19/18 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 Relationship Specialty Start Date End Date [...] Braun RN) 930 (Given - Provider: Leon Cook, SAMI) amLODIPine (NORVASC) tablet 5 mg 5 mg, Oral, DAILY, First dose on Thu05/16/22 at 0900, Until Discontinued 08 (Given - Provider: Mel Hampton RN) 08 (Given - Provider: Josey Braun, SAMI) 09 (Given - Provider: Leon Cook, RN) aspirin chewable tablet 81 mg 81 mg, Oral, DAILY, First dose on Thu05/16/22 at 0900, Until Discontinued 806 (Given - Provider: Mel Hampton RN) 08 (Given - Provider: Josey Braun RN) 929 (Given - Provider: Leon Cook, SAMI) atorvastatin [...] Mel Hampton RN)1999 (Given - Provider: Carolyn Iasac RN) 08 (Given - Provider: Josey Braun, SAMI)2058 (Given - Provider: Carolyn Isaac, RN) 0742 [...] SAMI) 1136 (Not Given - Provider: Josey Braun, SAMI - Reason: Patient/family refused)2100 (Not Given - Provider: Carolyn Isaac RN - Reason: Patient/family refused - Comment: pt had multiple BM today) 0931 (Given - Provider: Leon Cook, SAMI)2100 [...] Carolyn Isaac RN)1823 (Restarted - Provider: Carolyn Isaca RN)1925 (Rate/Dose Verify - Provider: Carolyn Isaac [...] Marta 05/15/22 at 2206, Until Thu05/20/22 at 2109, Nausea [...] SAMI) 0957 (Given - Provider: Cheyanne Mcdonough, SAIM) amLODIPine (NORVASC) tablet 5 mg 5 mg, [...] DVT/PE prophylaxis 1700 (Given - Provider: Terra Heart, SAMI) 1530 (Given - Provider: Terra Heart, SAMI) [...] (Given - Provider: Tati Ahmadi RN) 1053 ([facility] Hold - [...] - Provider: Erica Gudino RN) 105 ([facility] Hold - Provider: [...] [facility] CENTER Unhold - Provider: Automatic Transfer) 919 (Given - Provider: Terra Heart RN) Torsemide [...] [facility] Un[facility] - Provider: Automatic Transfer)2349 [...] BE BASED ON THE PRIMARY CLINICAL RECORDS. [facility]. provides no warranty or guarantee of the accuracy or completeness of information in this document.
[2024-05-30 07:42] LABS: Creatinine Urine Random 136.14 mg/dL (20.00-300.00); Protein Creatinine Ratio Urine 0.13; Total Protein Urine Random 17.2 mg/dL (<=11.9)
[2024-05-30 07:46] LABS: Alanine Aminotransferase 22 U/L (16-63); Albumin Level 3.9 g/dL (3.4-5.0); Alkaline Phosphatase 118 U/L (46-116); Anion Gap 12.1; Aspartate Amino Transferase 19 U/L (15-37); Bilirubin Direct 0.2 mg/dL (0.0-0.2); Bilirubin Total 0.9 mg/dL (0.2-1.0); Calcium 9.2 mg/dL (8.5-10.1); Carbon Dioxide 26.9 mmol/L (21.0-32.0); Chloride 106 mmol/L (98-107); Estimated GFR (African America >60 (>=60); Estimated GFR (Non-African Ame >60 (>=60); Gamma Glutamyl Transpeptidase 20 U/L (15-85); Glucose 106 mg/dL (74-106); Magnesium 2.2 mg/dL (1.8-2.4); Phosphorus 3.1 mg/dL (2.6-4.7); Sodium 141 mmol/L (136-145)
[2024-05-30 07:54] LABS: Basophils Percent Auto 0.6 % (0.2-2.0); Eosinophils Absolute Auto 0.2 10^3/uL (0.0-0.7); Eosinophils Percent Auto 4.4 % (0.9-7.0); Hematocrit 44.5 % (42.0-54.0); Hemoglobin 14.4 g/dL (14.0-18.0); Immature Granulocytes Abs Auto 0.01 10^3/uL (0.00-0.03); Immature Granulocytes Pct Auto 0.2 % (0.0-0.5); Lymphocytes Absolute Auto 1.4 10^3/uL (1.2-3.8); Mean Corpuscular HGB Conc 32.4 g/dL (29.9-35.2); Mean Corpuscular Hemoglobin 29.3 pg (25.9-34.0); Mean Corpuscular Volume 90.6 fL (80.0-94.0); Mean Platelet Volume 10.2 fL (9.5-13.5); Monocytes Absolute Auto 0.4 10^3/uL (0.3-0.8); Monocytes Percent Auto 8.1 % (1.7-12.0); Neutrophils Percent Auto 59.7 % (43.0-75.0); Platelet Count 240 10^3/uL (150-450); Red Blood Count 4.91 10^6/uL (4.70-6.10); Red Cell Distribution Width 12.4 % (11.0-15.0)
== END 2024-05-30 06:59 | disposition home or self-care (01) ==
LOC: LAB 07:00
PROVIDERS: PCP Nurse Practitioner
DX: R79.9 Abnormal finding of blood chemistry, unspecified (principal); Z94.0 Kidney transplant status; Z94.4 Liver transplant status; Z48.298 Encounter for aftercare following other organ transplant
CPT/HCPCS: 36415; 80048; 80197; 82042; 82247; 82248; 82570; 82977; 83735; 84075; 84100; 84156; 84450; 84460; 85025

== ENCOUNTER 2024-06-06 06:32 | Outpatient (OUT) | payer MEDICARE, MEDICAID, SELFPAY ==
--- OUTSIDE RECORDS SUMMARY | 2024-06-06 06:40 | XMS_ITS | CCD ---
Author Organization [facility] Care Team Providers Care Mucker Cofferdam Name Role Phone Kiana Zuly Unavailable Unavailable [...] Unavailable AICHHOLZ, ZULY Primary Care Unavailable Aichholz [facility], Zuly Primary Care Provider Miguel [facility] Shirin [facility],PharmD, Angel Unavailable Unavailab makayla Leigh [facility],PharmD, Te Unavailable Unavai lable Aicholz [facility], Zuly Primary Care Provider CRISTINA, DR BURCH Admitting Unavailable MISC, DR BURCH Consulting Unavailable AICHHOLZ, SNAP SHEARER ZULY Primary Care Unavailable MISC, DR BURCH Attending Unavailable MISC, DR BURCH Admitting Unavailable MISC, DR BURCH Consulting Unavailable AICHHOLZ, SNAP SHEARER ZULY Primary Care Unavailable MISC, DR BURCH Attending Unavailable ARCELIA PIZARRO Consulting Unavailable KE BURNHAM Attending Unavailable KE BURNHAM Admitting Unavailable BARBARA, DR MÓNICA Munoz Consulting Unavailable AICHHOLZ, SNAP SHEARER ZULY Primary Care Unavailable KE BURNHAM Consulting Unavailable MISC, DR BURCH Consulting Unavailable MISC, DR BURCH Attending Unavailable AICHHOLZ, SNAP SHEARER ZULY Primary Care Unavailable MISC, DR BURCH Admitting Unavailable MISC, DR DOCTOR Consulting Unavailable MISC, DOCTOR Attending Unavailable AICHHOLZ, SNAP SHEARER ZULY Primary Care Unavailable MISC, DR BURCH Admitting Unavailable MISC, DR DOCTOR Consulting Unavailable AICHHOLZ, SNAP SHEARER ZULY Primary Care Unavailable MISC, DOCTOR Admitting Unavailable MISC, DR DOCTOR Attending Unavailable MELINDA, DR GEORGE Munoz Consulting Unavailable MELINDA, DR GEORGE Munoz Attending Unavailable AICHHOLZ, SNAP SHEARER ZULY Primary Care Unavailable MELINDA, DR GEORGE Munoz Admitting Unavailable NAUN ., KE Consulting Unavailable MIRANDA, LYNDSAY Consulting Unavailable MELINDA, DR GEORGE Munoz Consulting Unavailable NAUN ., KE Attending Unavailable NAUN ., KE Admitting Unavailable AICHHOLZ, SNAP SHEARER ZULY Primary Care Unavailable NAUN ., KE Consulting Unavailable GIAN HERRING Consulting Unavailable AICHHOLZ, SNAP SHEARER ZULY Consulting Unavailable AICHHOLZ, SNAP SHEARER ZULY Attending Unavailable AICHHOLZ, SNAP SHEARER ZULY Admitting Unavailable AICHHOLZ, SNAP SHEARER ZULY Primary Care Unavailable MISC, DR BURCH Consulting Unavailable MISC, DOCTOR Admitting Unavailable MISC, DOCTOR Attending Unavailable AICHHOLZ, SNAP SHEARER ZULY Primary Care Unavailable MISC, DR DOCTOR Consulting Unavailable MISC, DR DOCTOR Attending Unavailable MISC, DR DOCTOR Admitting Unavailable AICHHOLZ, SNAP SHEARER ZULY Primary Care Unavailable MISC, DR BURCH Admitting Unavailable MISC, DOCTOR Consulting Unavailable MISC, DOCTOR Attending Unavailable AICHHOLZ, SNAP SHEARER ZULY Primary Care Unavailable MISC, DOCTOR Admitting Unavailable MISC, DR DOCTOR Consulting Unavailable AICHHOLZ, SNAP SHEARER ZULY Primary Care Unavailable MISC, DR DOCTOR Attending Unavailable MISC, DOCTOR Admitting Unavailable MISC, DR DOCTOR Consulting Unavailable AICHHOLZ, SNAP SHEARER ZULY Primary Care Unavailable MISC, DR DOCTOR Attending Unavailable AICHHOLZ, SNAP SHEARER ZULY Consulting Unavailable AICHHOLZ, SNAP SHEARER ZULY Attending Unavailable AICHHOLZ, SNAP SHEARER ZULY Admitting Unavailable AICHHOLZ, SNAP SHEARER ZULY Primary Care Unavailable DR MÓNICA JIMENEZ Consulting Unavailable Aichholz SNAP SHEARER, Zuly Primary Care Provider Tran White DOs A Unavailable Aichholz SNAP SHEARER, Zuly Primary Care Provider Tran White DOs A Unavailable Momo Verdugo MD Primary Care Provider Aichholz ROB Zuly Primary Care Provider [phone] AICHHOLZ, ZULY Attending Unavailable AICHHOLZ, ZULY Attending [...] Attending Unavailable AICHHOLZ, ZULY Primary Care Unavailable TARA, [...] HAKEEM ALAMO Attending Unavailable EVAN WHITE Referring ZULY Salecdo Primary Care Unavailable MIGUEL CARDONA Attending Unavailable Allergies Allergy Classification Reported Allergen(s) Allergy Type Date of Onset Reaction(s) Facility (2 sources) Shellfish; Translations: [SHELLFISH DERIVED] Propensity to adverse reactions (disorder) 8 [facility] Repository (20 sources) Shellfish-Derive d Products Propensity to adverse reactions to drug 9 [facility] (1 source) Shellfish Drug allergy (disorder) [facility] Medications Current Medications Medication [...] 1 capsule by mouth once daily b vzygtyr-G-igpxg acid (NEPHROCAPS) 1 MG capsule Take 1 [...] tablet (20 sources) Antimetabolite Immunosuppressant Star t: 0508-19 take 1 tablet by mouth every twelve hours Mycophenolate sodium (MYFORTIC) [address] tablet DR Take 1 tablet by mouth every 12 hours. 60 tablet 5 04/27/2024 Active Start: 01-16-2024 End: 01-23-2024 take 1 tablet [...] 07/17/2018 Active take 2 tablets by mo [facility] three times daily at mealtime sevelamer (RENVELA) 800 MG tablet Take 2 tablets by mouth 3 times daily (with meals) 0 Active sulfamethoxazole 800 mg / trimethoprim 160 mg oral tablet (20 sources) Dihydrofolate Reductase Inhibitor Antibacterial, Sulfonamide Antimicrobial Start: 09-23-2023 End: 03-13-2025 take 1 tablet by mouth three times weekly Sulfamethoxazole-trimethoprim 800-160 MG per tablet Take 1 tablet by mouth three times a week. 36 tablet 3 04/11/2024 03/13/2025 Active Start: 09-04-2023 End: 09-11-2023 take 1 [...] or crush torsemide 20 mg oral tablet (13 sources) Loop Diuretic Start: 04-15-2024 take 1 tablet by mouth once daily Torsemide 20 MG tablet Take 1 tablet by mouth daily. 90 tablet 1 04/15/2024 Active Start: 01-22-2024 End: 01-23-2024 take 1 tablet by mouth once daily Torsemide 20 MG tabl et Take 1 tablet by mouth daily. 90 [...] itraconazole Fax results to: Dr. White - [phone] Transplant Ne[facility] - [phone] Each 09/10/2023 01/19/2024 Discontinued (Medication Reconciliation (suppress cancel msg)) Start: 09-10-2023 CUSTOM MEDICAT ION Labs to be obtained: 1- Tacrolimus level, trough - collect twice weekly until 09/24/23, then weekly until 10/08/23, them once every two weeks there after. 2- Itraconazole level - obtain once between 09/14-09/18. 3- Chem 6 - Obtain weekly while on itraconazole Fax results to: Dr. White - [phone] [facility] - [phone] Each 0 09/10/2023 Active Diatrizoate (1 source) Start: 05-20-2022 End: 05-20-2022 diatrizoate Meglumine (Cystografin) 30 % UR solution 80 mL diphenhydrAMINE hydrochloride 25 mg oral tablet (1 source) Histamine-1 Receptor Antagonist Start: 09-03-2023 End: 09-11-2023 take 25 mg by mouth every twenty-four hours 25 mg, Oral, EVERY 24 HOURS, First dose on [facility] 09/03/23 at 1600, Until Discontinued Give 30 minutes prior to each amphotericin b dose docusate sodium 100 mg oral capsule (4 sources) Start: 05-15-2022 End: 05-16-2022 take 200 mg by mouth every twelve hours 200 mg, Oral, EVERY 12 HOURS, First dose on [facility] 05/15/22 at 2215, Until Discontinued Start: 05-23-2020 [...] 01/16/2023 Discontinued take 2 tablets by mo [facility] in the morning magnesium oxide (Mag-Ox) 400 MG tablet Take 2 tablets by mouth in the morning. 0 [facility] magnesium oxide (MAG-OX) [...] End: 05-20-2022 Magnesium Sulfate 4 g in jroge rile water 50 ml premix IVPB melatonin [...] (ROXICODONE) tablet 10 mg polyethylene glycol [id number] [id number] mg powder for oral solution (20 sources) [...] 3 11-03-2023 Episodic Congestive heart failure; nonhypertensive (19 sources) Acute diastolic heart failure; Translations: [Acute diastolic (congestive) heart failure] Onset: 4 01-20-2024 Chronic Coronary atherosclerosis and other heart disease (20 sources) Coronary arteriosclerosis; Translations: [Atherosclerotic heart disease of [place] coronary artery without angina pectoris] Onset: 3 [...] following other organ transplant; Translations: [[facility]] Onset: 3 Chronic Other aftercare (1 source) Follow-up status; Translations: [Encounter for follow-up examination after completed treatment for conditions other than malignant neoplasm] Episodic Other aftercare (2 sources) Taking high risk medication; Translations: [Other termite control servicer (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] Episodic Other and ill-defined [...] W/AND (SUSP) EXPOS COVID-19] Onset: 2 Unclassified (20 sources) New Patient Onset: 3 03-26-2023 Unclassified (20 sources) Access to Medication(s) Onset: 3 03-26-2023 Unclassified (20 sources) Safety: Avoid toxicity that would cause discontinuation Onset: 3 03-26-2023 Unclassified (20 sources) Identify and eliminate barriers to patient adherence Onset: 3 03-26-2023 Unclassified (20 sources) Ensure that patient is receiving therapeutic [...] Onset: 11-08-2022 Episodic Fever of unknown origin (19 sources) Fever; Translations: [Fever, unspecified] Onset: 08-28-2023 Resolved: 09-10-2023 08-28-2023 Episodic Genitourinary symptoms and ill-defined conditions (7 sources) Retention of urine, unspecified; Translations: [Hematuria, unspecified] Onset: 05-11-2022 Episodic Mycoses (20 sources) Histoplasmosis; Translations: [Histoplasmosis, unspecified] Onset: 08-28-2023 09-10-2023 Episodic Nausea and vomiting (20 sources) Nausea and vomiting; Translations: [Nausea with vomiting, unspecified] Onset: 05-10-2020 05-10-2020 Episodic Other aftercare (2 sources) Other termite control servicer (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; Translations: [OTH GROUP HOME 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 THERAPY] Onset: 07-06-2022 Episodic Other aftercare (1 source) residential (current) use of aspirin; Translations: [STOCK BLENDER CURRENT USE OF ASPIRIN] Onset: 06-20-2022 Episodic [...] [Blood chemistry abnormal] Onset: 06-22-2018 06-22-2018 Episodic Pleurisy; pneumothorax; pulmonary collapse (15 sources) Pleural effusion; Translations: [Pleural effusion, not elsewhere classified] Onset: 01-16-2024 01-16-2024 Episodic Residual codes; unclassified (1 source) Ill-defined [...] transplant] Onset: 08-28-2023 Unclassified (1 source) Other termite control servicer (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; Translations: [Other termite control servicer (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] Onset: 08-28-2023 Unclassified (1 source) Hypertension secondary to other renal disorders; Translations: [Hypertension secondary to other renal disorders] Onset: 08-28-2023 Unclassified (1 source) Other pericardial effusion (noninflammatory); Translations: [Other pericardial effusion (noninflammatory)] Onset: 05-13-2024 Results Test Name Value Interpretation Reference Range Facility 36on 06-01-2024 36 Regarding echo perfo rmed on 05/18/2024: MD Cinda Batres MA Please tell him the echo was ok and showed a small residual fluid around the heart. This is significant improvement from before. Follow up as planned. Patient informed and he verbalized understanding. Normal [facility] Office Visiton 05-13-2024 Follow-up visit [id number] George Styles 1970 M Date Provider Department Center 05/13/2024 367-MIGUEL CARDONA CARD [facility] Family History Problem Relation Age of Onset Coronary artery disease Mother Coronary artery disease Father Family Status - Relation Status Age at Mother Father Level of Service:82943 DC OFFICE/OUTPATIENT ESTABLISHED LOW MDM 20 MIN Reason for Visit and Comments: Follow-up [518786] - Yearly follow up Normal [facility] B-TYPE NATRIURETIC PEPTIDE ( BRAIN)on 02-26-2024 Interpretation and review of laboratory results Normal [facility] Natriuretic peptide B (Bld) [Mass/Vol] 72 pg/mL 0 - 100 pg/mL [facility] Natriuretic peptide B (Bld) [Mass/Vol] 72 pg/mL Normal 0-100 [facility] Comment on above: Performed By: #### B ORGAN GRINDER ####[facility] (DEFAULT)[address] [place] [address] CHEM 6 (LYTES, BUN CREA)on 0 02-26-2024 Anion gap [Moles/Vol] 13 mmol/L 7 - 17 mmol/L [facility] Chloride [Moles/Vol] 107 mmol/L 98 - 10 8 mmol/L [facility] CO2 [Moles/Vol] 25 mmol/L 21 - 31 mmol/L [facility] Creatinine [Mass/Vol] 1.23 mg/dL 0.70 - 1.30 mg/dL [facility] eGFR, CKD-EPI, Male 70 - PINF [facility] Comment on above: Reported eGFR is bas ed on the CKD-EPI 2021 equation using creatinine, age, and sex. Potassium [Moles/Vol] 4.2 mmol/L 3.5 - 5.0 mmol/L [facility] Sodium [Moles/Vol] 141 mmol/L 135 - 145 mmol/L [facility] Urea nitrogen [Mass/Vol] 17 mg/dL 7 - 25 mg/dL [facility] Urea nitrogen/Creatinine [Mass ratio] 14 mg/mg [facility] Anion gap [Moles/Vol] 13 mmol/L Normal 7-17 [facility] Comment on above: Performed By: #### C HM6 ####[facility] (DEFAULT)[address] [place] [address] Chloride [Moles/Vol] 107 mmol/L Normal 98-108 [facility] Comment on above: Performed By: #### C HM6 ####[facility] (DEFAULT)[address] [place] [address] CO2 [Moles/Vol] 25 mmol/L Normal 21-31 [facility] Comment on above: Performed By: #### C HM6 ####[facility] (DEFAULT)[address] [place] [address] Creatinine [Mass/Vol] 1.23 mg/dL Normal 0.70-1.30 [facility] Comment on above: Performed By: #### C HM6 ####[facility] (DEFAULT)[address] [place] [address] GFR/1.73 sq M.predicted among non-blacks MDRD (S/P/Bld) [Vol rate/Area] 70 mL/min/{1.73_m2} Normal >=60 [facility] Comment on above: Result Comment: Repo rted eGFR is based on the CKD-EPI 2021 equation using creatinine, age, and sex. Performed By: #### C HM6 ####[facility] (DEFAULT)[address] [place] [address] Potassium [Moles/Vol] 4.2 mmol/L Normal 3.5-5.0 [facility] Comment on above: Performed By: #### C HM6 ####[facility] (DEFAULT)[address] [facility] [place] [address] Sodium [Moles/Vol] 141 mmol/L Normal 135-145 [facility] Comment on above: Performed By: #### C HM6 ####[facility] (DEFAULT)[address] [facility] [place] [address] Urea nitrogen [Mass/Vol] 17 mg/dL Normal 7-25 [facility] Comment on above: Performed By: #### C HM6 ####[facility] (DEFAULT)[address] [facility] [place] [address] Urea nitrogen/Creatinine [Mass ratio] 14 mg/mg Normal [facility] Comment on above: Performed By: #### C HM6 ####[facility] (DEFAULT)[address] [facility] [place] [address] CBC,PLATELETSon 01-23-2024 Erythrocyte distribution width (RBC) [Ratio] 14.2 % 10.9 - 14.3 % [facility] Hematocrit (Bld) [Volume fraction] 37.0 % Low 39.6 - 48.8 % [facility] Hemoglobin (Bld) [Mass/Vol] 12.0 g/dL Low 13.4 - 16.8 g/dL [facility] Interpretation and review of laboratory results Abnormal [facility] MCH (RBC) [Entitic mass] 28.6 pg 26.1 - 33.3 pg [facility] MCHC (RBC) [Mass/Vol] 32.4 g/dL 31.9 - 36.5 g/dL [facility] MCV (RBC) [Entitic vol] 88.1 fL 79.0 - 94.5 fL [facility] Platelet mean volume (Bld) [Entitic vol] 10.4 fL 8.7 - 12.3 fL [facility] Platelets (Bld) [#/Vol] 170 10*3/uL 146 - 337 K/uL [facility] RBC (Bld) [#/Vol] 4.20 10*6/uL Low [facility] WBC (Bld) [#/Vol] 3.70 10*3/uL Low 3.73 - 10. 10 K/uL [facility] Hematocrit (Bld) [Volume fraction] 37.0 % Low 39.6-48.8 [facility] Comment on above: Performed By: #### H EMO ####[facility] (DEFAULT)[address] [place] [address] Hemoglobin (Bld) [Mass/Vol] 12.0 g/dL Low 13.4-16.8 [facility] Comment on above: Performed By: #### H EMOGC ####[facility] (DEFAULT)[address] [place] [address] MCV (RBC) [Entitic vol] 88.1 fL Normal 79.0-94.5 [facility] Comment on above: Performed By: #### H EMO ####[facility] (DEFAULT)[address] [place] [address] Mean Cell Hgb 28.6 pg Normal 26.1-33.3 [facility] Comment on above: Performed By: #### H EMOGC ####[facility] (DEFAULT)[address] [place] [address] Mean Cell Hgb Conc 32.4 g/dL Normal 31.9-36.5 [facility] Comment on above: Performed By: #### H EMOGC ####[facility] (DEFAULT)[address] [place] [address] Platelet mean volume (Bld) [Entitic vol] 10.4 fL Normal 8.7-12.3 [facility] Comment on above: Performed By: #### H EMOGC ####[facility] (DEFAULT)[address] [place] [address] Platelets (Bld) [#/Vol] 170 10*3/uL Normal 146-337 [facility] Comment on above: Performed By: #### H [facility] [place] ####[facility] (DEFAULT)[address] [place] [address] RBC (Bld) [#/Vol] 4.20 10*6/uL Low 4.38-5.83 [facility] Comment on above: Performed By: #### H [facility] [place] ####[facility] (DEFAULT)[address] [place] [address] RBC Distribution 14.2 % Normal 10.9-14.3 [facility] Comment on above: Performed By: #### H [facility] [place] ####[facility] (DEFAULT)[address] [place] [address] WBC (Bld) [#/Vol] 3.70 10*3/uL Low 3.73-10.10 [facility] Comment on above: Performed By: #### H [facility] [place] ####[facility] (DEFAULT)[address] [place] [address] CHEM 7 (LYTES,BUN,CREA,GLUC) on 01-23-2024 Anion gap [Moles/Vol] 14 mmol/L 7 - 17 mmol/L [facility] Chloride [Moles/Vol] 105 mmol/L 98 - 10 8 mmol/L [facility] CO2 [Moles/Vol] 25 mmol/L 21 - 31 mmol/L [facility] Creatinine [Mass/Vol] 1.32 mg/dL High 0.70 - 1.30 mg/dL [facility] eGFR, CKD-EPI, Male 65 - PINF [facility] Comment on above: Reported eGFR is bas ed on the CKD-EPI 2020 equation using creatinine, age, and sex. Glucose [Mass/Vol] 94 mg/dL 70 - 99 mg/dL [facility] Osmolality Calc [Osmolality] 296 [facility] Potassium [Moles/Vol] 3.8 mmol/L 3.5 - 5.0 mmol/L [facility] Sodium [Moles/Vol] 140 mmol/L 135 - 145 mmol/L [facility] Urea nitrogen [Mass/Vol] 23 mg/dL 7 - 25 mg/dL [facility] Urea nitrogen/Creatinine [Mass ratio] 17 mg/mg [facility] Anion gap [Moles/Vol] 14 mmol/L Normal 7-17 [facility] Comment on above: Performed By: #### NATHANIEL RAMÍREZ, HFP ####[facility] (DEFAULT)[address] [facility] [place] [address] Chloride [Moles/Vol] 105 mmol/L Normal 98-108 [facility] Comment on above: Performed By: #### NATHANIEL RAMÍREZ, HFP ####[facility] (DEFAULT)[address] [facility] [place] [address] CO2 [Moles/Vol] 25 mmol/L Normal 21-31 [facility] Comment on above: Performed By: #### NATHANIEL RAMÍREZ, HFP ####[facility] (DEFAULT)[address] [facility] [place] [address] Creatinine [Mass/Vol] 1.32 mg/dL High 0.70-1.30 [facility] Comment on above: Performed By: #### NATHANIEL RAMÍREZ, HFP ####[facility] (DEFAULT)[address] [facility] [place] [address] GFR/1.73 sq M.predicted among non-blacks MDRD (S/P/Bld) [Vol rate/Area] 65 mL/min/{1.73_m2} Normal >=60 [facility] Comment on above: Result Comment: Repo rted eGFR is based on the CKD-EPI 2020 equation using creatinine, age, and sex. Performed By: #### Rod BLOOM CHMJessica, HFP ####[facility] (DEFAULT)[address] [facility] [place] [address] Glucose [Mass/Vol] 94 mg/dL Normal 70-99 [facility] Comment on above: Performed By: #### NATHANIEL RAMÍREZ, HFP ####[facility] (DEFAULT)[address] [place] [address] Osmolality [Osmolality] 296 mosm/kg Normal 278-305 [facility] Comment on above: Performed By: #### NATHANIEL RAMÍREZ, HFP ####[facility] (DEFAULT)[address] [facility] [place] [address] Potassium [Moles/Vol] 3.8 mmol/L Normal 3.5-5.0 [facility] Comment on above: Performed By: #### NATHANIEL RAMÍREZ, HFP ####[facility] (DEFAULT)[address] [facility] [place] [address] Sodium [Moles/Vol] 140 mmol/L Normal 135-145 [facility] Comment on above: Performed By: #### NATHANIEL RAMÍREZ, HFP ####[facility] (DEFAULT)[address] [facility] [place] [address] Urea nitrogen [Mass/Vol] 23 mg/dL Normal 7-25 [facility] Comment on above: Performed By: #### NATHANIEL RAMÍREZ, HFP ####[facility] (DEFAULT)[address] [facility] [place] [address] Urea nitrogen/Creatinine [Mass ratio] 17 mg/mg Normal [facility] Comment on above: Performed By: #### NATHANIEL RAMÍREZ, HFP ####[facility] (DEFAULT)[address] [facility] [place] [address] GLUCOSE POCon 01-23-2024 Glucose [Mass/Vol] 88 mg/dL 70 - 99 mg/dL [facility] POC Sample Type CAPBL [facility] Test performed at ad dress of the patient encounter. [facility] Glucose [Mass/Vol] 191 mg/dL High 70 - 99 mg/dL [facility] Interpretation and review of laboratory results Abnormal [facility] POC Sample Type CAPBL [facility] Test performed at ad dress of the patient encounter. [facility] HEPATIC FUNCTION PANELon Albumin [Mass/Vol] 3.9 g/dL 3.5 - 5.0 g/dL [facility] ALP [Catalytic activity/Vol] 83 U/L 32 - 126 U/L [facility] ALT [Catalytic activity/Vol] 9 U/L Low 10 - 52 U/L [facility] AST [Catalytic activity/Vol] 17 U/L 10 - 39 U/L [facility] Bilirubin [Mass/Vol] 1.6 mg/dL High NINF - 1.5 mg/dL [facility] Bilirubin.direct [Mass/Vol] 0.4 mg/dL High NINF - 0.3 mg/dL [facility] Protein [Mass/Vol] 6.6 g/dL 6.4 - 8.3 g/dL [facility] Albumin [Mass/Vol] 3.9 g/dL Normal 3.5-5.0 [facility] Comment on above: Performed By: #### NATHANIEL RAMÍREZ, HFP ####[facility] (DEFAULT)[address] [place] [address] ALP [Catalytic activity/Vol] 83 U/L Normal 32-126 [facility] Comment on above: Performed By: #### NATHANIEL RAMÍREZ, HFP ####[facility] (DEFAULT)[address] [place] [address] ALT [Catalytic activity/Vol] 9 U/L Low 10-52 [facility] Comment on above: Performed By: #### TJ RAMÍREZ7, HFP ####[facility] (DEFAULT)[address] [place] [address] AST [Catalytic activity/Vol] 17 U/L Normal 10-39 [facility] Comment on above: Performed By: #### NATHANIEL RAMÍREZ, HFP ####[facility] (DEFAULT)[address] [place] [address] Bilirubin [Mass/Vol] 1.6 mg/dL High <1.5 [facility] Comment on above: Performed By: #### NATHANIEL RAMÍREZ, HFP ####[facility] (DEFAULT)[address] [place] [address] Bilirubin.indirect [Mass/Vol] 0.4 mg/dL High <0.3 [facility] Comment on above: Performed By: #### NATHANIEL RAMÍREZ, HFP ####[facility] (DEFAULT)[address] [place] [address] Protein [Mass/Vol] 6.6 g/dL Normal 6.4-8.3 [facility] Comment on above: Performed By: #### NATHANIEL RAMÍREZ, HFP ####[facility] (DEFAULT)[address] [place] [address] ITRACONAZOLE LEVELon 024 Hydroxyitraconazole [Mass/Vol] 7.6 mcg/mL [facility] Comment on above: REFERENCE VALUE No therapeutic range established; activity and serum concentration are similar to parent drug. ADDITIONAL INFORMATION This test was developed and its performance characteristics determined by [facility] in a manner consistent with CLIA requirements. This test has not been cleared or approved by the U.S. Food and Drug Administration. Test Performed by: [facility] [address] [place] [address] End Worker: Rosendo Bose M.D. Ph.D.; CLIA# [id number] Itraconazole [Mass/Vol] 6.0 mcg/mL [facility] Comment on above: REFERENCE VALUE >0.5 (localized infection), >1.0 (systemic infection) [facility] MAGNESIUMon 01-23-2024 Interpretation and review of laboratory results Normal [facility] Magnesium [Mass/Vol] 1.8 mg/dL 1.6 - 2 .6 mg/dL [facility] Magnesium [Mass/Vol] 1.8 mg/dL Normal 1.6-2.6 [facility] Comment on above: Performed By: #### M MERLE, M7, [facility] ####[facility] (DEFAULT)[address] [place] [address] No Panel Informationon 01-23 Interpretation and review of laboratory results Abnormal [facility] TACROLIMUS LEVEL, TROUGH (DC E DRUG LEVEL)on 01-23-2024 Interpretation and review of laboratory results Normal [facility] Tacrolimus (Bld) [Mass/Vol] 7.0 ng/mL Bone Marrow Transplant: 4.0-12.0, Therapeutic: 5.0-15.0 [facility] Method performed is a chemiluminescent microparticle immunoasssay on the [employer] i2000. The range is based on experience at [facility] and users should be aware that target concentrations vary widely depending on concomitant therapy, time post-transplant, and desired degree of immunosuppression. [facility] Tacrolimus, Trough 7.0 ng/mL Normal Bone Susana ow Transplant: 4.0-12.0, Therapeutic: 5.0-15.0 [facility] Comment on above: Order Comment: Pleas e draw at specified interval PRIOR to dose. Do not hold dose to wait for level. Specimens batched twice per day, (M-F) and once per day weekendsMethod performed is a chemiluminescent microparticle immunoasssay on the [employer] i2000.The range is based on experience at [facility] and users should be aware that target concentrations vary widely depending on concomitant therapy, time post-transplant, and desired degree of immunosuppression. Performed By: #### T ACRO ####[facility] (DEFAULT)[address] [place] [address] CARDIAC RHYTHM (SCANNED)on 0 01-22-2024 [facility] CBC,PLATELETSon 01-22-2024 Erythrocyte distribution width (RBC) [Ratio] 14.1 % 10.9 - 14.3 % [facility] Hematocrit (Bld) [Volume fraction] 41.5 % 39.6 - 48.8 % [facility] Hemoglobin (Bld) [Mass/Vol] 13.3 g/dL Low 13.4 - 16.8 g/dL [facility] Interpretation and review of laboratory results Abnormal [facility] MCH (RBC) [Entitic mass] 27.8 pg 26.1 - 33.3 pg [facility] MCHC (RBC) [Mass/Vol] 32.0 g/dL 31.9 - 36.5 g/dL [facility] MCV (RBC) [Entitic vol] 86.8 fL 79.0 - 94.5 fL [facility] Platelet mean volume (Bld) [Entitic vol] 10.5 fL 8.7 - 12.3 fL [facility] Platelets (Bld) [#/Vol] 186 10*3/uL 146 - 337 K/uL [facility] RBC (Bld) [#/Vol] 4.78 10*6/uL [facility] WBC (Bld) [#/Vol] 3.74 10*3/uL 3.73 - 10. 10 K/uL [facility] Hematocrit (Bld) [Volume fraction] 41.5 % Normal 39.6-48.8 [facility] Comment on above: Performed By: #### H EMO ####[facility] (DEFAULT)[address] [place] [address] Hemoglobin (Bld) [Mass/Vol] 13.3 g/dL Low 13.4-16.8 [facility] Comment on above: Performed By: #### H EMOGC ####[facility] (DEFAULT)[address] [place] [address] MCV (RBC) [Entitic vol] 86.8 fL Normal 79.0-94.5 [facility] Comment on above: Performed By: #### H EMOGC ####[facility] (DEFAULT)[address] [place] [address] Mean Cell Hgb 27.8 pg Normal 26.1-33.3 [facility] Comment on above: Performed By: #### H EMOGC ####[facility] (DEFAULT)[address] [facility] [place] [address] Mean Cell Hgb Conc 32.0 g/dL Normal 31.9-36.5 [facility] Comment on above: Performed By: #### H EMO ####[facility] (DEFAULT)[address] [facility] [place] [address] Platelet mean volume (Bld) [Entitic vol] 10.5 fL Normal 8.7-12.3 [facility] Comment on above: Performed By: #### H EMOGC ####[facility] (DEFAULT)[address] [place] [address] Platelets (Bld) [#/Vol] 186 10*3/uL Normal 146-337 [facility] Comment on above: Performed By: #### H EMOGC ####[facility] (DEFAULT)[address] [facility] [place] [address] RBC (Bld) [#/Vol] 4.78 10*6/uL Normal 4.38-5.83 [facility] Comment on above: Performed By: #### H EMOGC ####[facility] (DEFAULT)[address] [facility] [place] [address] RBC Distribution 14.1 % Normal 10.9-14.3 [facility] Comment on above: Performed By: #### H [facility] ####[facility] (DEFAULT)[address] [place] [address] WBC (Bld) [#/Vol] 3.74 10*3/uL Normal 3.73-10.10 [facility] Comment on above: Performed By: #### H [facility] ####[facility] (DEFAULT)[address] [place] [address] CHEM 7 (LYTES,BUN,CREA,GLUC) on 01-22-2024 Anion gap [Moles/Vol] 13 mmol/L 7 - 17 mmol/L [facility] Chloride [Moles/Vol] 109 mmol/L High 98 - 10 8 mmol/L [facility] CO2 [Moles/Vol] 23 mmol/L 21 - 31 mmol/L [facility] Creatinine [Mass/Vol] 1.10 mg/dL 0.70 - 1.30 mg/dL [facility] eGFR, CKD-EPI, Male 81 - PINF [facility] Comment on above: Reported eGFR is bas ed on the CKD-EPI 2020 equation using creatinine, age, and sex. Glucose [Mass/Vol] 84 mg/dL 70 - 99 mg/dL [facility] Interpretation and review of laboratory results Abnormal [facility] Osmolality Calc [Osmolality] 295 [facility] Potassium [Moles/Vol] 4.0 mmol/L 3.5 - 5.0 mmol/L [facility] Sodium [Moles/Vol] 141 mmol/L 135 - 145 mmol/L [facility] Urea nitrogen [Mass/Vol] 16 mg/dL 7 - 25 mg/dL [facility] Urea nitrogen/Creatinine [Mass ratio] 15 mg/mg [facility] Anion gap [Moles/Vol] 13 mmol/L Normal 7-17 [facility] Comment on above: Performed By: #### M MERLE, CHM7 ####[facility] (DEFAULT)[address] [place] [address] Chloride [Moles/Vol] 109 mmol/L High 98-108 [facility] Comment on above: Performed By: #### NATHANIEL RAMÍREZ ####[facility] (DEFAULT)[address] [facility] [place] [address] CO2 [Moles/Vol] 23 mmol/L Normal 21-31 [facility] Comment on above: Performed By: #### TJ RAMÍREZ7 ####[facility] (DEFAULT)[address] [facility] [place] [address] Creatinine [Mass/Vol] 1.10 mg/dL Normal 0.70-1.30 [facility] Comment on above: Performed By: #### TJ RAMÍREZ7 ####[facility] (DEFAULT)[address] [facility] [place] [address] GFR/1.73 sq M.predicted among non-blacks MDRD (S/P/Bld) [Vol rate/Area] 81 mL/min/{1.73_m2} Normal >=60 [facility] Comment on above: Result Comment: Repo rted eGFR is based on the CKD-EPI 2020 equation using creatinine, age, and sex. Performed By: #### NATHANIEL RAMÍREZ ####[facility] (DEFAULT)[address] [facility] [place] [address] Glucose [Mass/Vol] 84 mg/dL Normal 70-99 [facility] Comment on above: Performed By: #### NATHANIEL RAMÍREZ ####[facility] (DEFAULT)[address] [facility] [place] [address] Osmolality [Osmolality] 295 mosm/kg Normal 278-305 [facility] Comment on above: Performed By: #### TJ RAMÍREZ7 ####[facility] (DEFAULT)[address] [facility] [place] [address] Potassium [Moles/Vol] 4.0 mmol/L Normal 3.5-5.0 [facility] Comment on above: Performed By: #### Rdo BLOOM, CHM7 ####[facility] (DEFAULT)[address] [facility] [place] [address] Sodium [Moles/Vol] 141 mmol/L Normal 135-145 [facility] Comment on above: Performed By: #### Rod BLOOM CHM7 ####[facility] (DEFAULT)[address] [facility] [place] [address] Urea nitrogen [Mass/Vol] 16 mg/dL Normal 7-25 [facility] Comment on above: Performed By: #### Rod BLOOM CHM7 ####[facility] (DEFAULT)[address] [facility] [place] [address] Urea nitrogen/Creatinine [Mass ratio] 15 mg/mg Normal [facility] Comment on above: Performed By: #### Rod BLOOM CHM7 ####[facility] (DEFAULT)[address] [place] [address] MAGNESIUMon 01-22-2024 Interpretation and review of laboratory results Normal [facility] Magnesium [Mass/Vol] 2.0 mg/dL 1.6 - 2 .6 mg/dL [facility] Magnesium [Mass/Vol] 2.0 mg/dL Normal 1.6-2.6 [facility] Comment on above: Performed By: #### Rod BLOOM CHM7 ####[facility] (DEFAULT)[address] [place] [address] No Panel Informationon 01-22 [facility] PT,INR,PTTon 01-22-2024 aPTT Coag (PPP) [Time] 29.2 s [facility] INR Coag (Bld) [Relative time] 1.1 {INR} 0.9 - 1.1 [facility] Interpretation and review of laboratory results Abnormal [facility] PT Coag (PPP) [Time] 14.3 s High [facility] aPTT Coag (Bld) [Time] 29.2 s Normal 24.0-34.3 [facility] Comment on above: Performed By: #### P TPTT ####[facility] (DEFAULT)[address] [facility] [place] [address] INR Coag (PPP) [Relative time] 1.1 {INR} Normal 0.9-1.1 [facility] Comment on above: Performed By: #### P TPTT ####[facility] (DEFAULT)[address] [facility] [place] [address] PT Coag (PPP) [Time] 14.3 s High 11.9-14.2 [facility] Comment on above: Performed By: #### P TPTT ####[facility] (DEFAULT)[address] [facility] [place] [address] TACROLIMUS LEVEL, TROUGH (DC E DRUG LEVEL)Ordered By: Sheree Jensen on 01-22-2024 Interpretation and review of laboratory results Normal [facility] Tacrolimus (Bld) [Mass/Vol] 7.9 ng/mL Bone Marrow Transplant: 4.0-12.0, Therapeutic: 5.0-15.0 [facility] Method performed is a chemiluminescent microparticle immunoasssay on the [employer] i2000. The range is based on experience at [facility] and users should be aware that target concentrations vary widely depending on concomitant therapy, time post-transplant, and desired degree of immunosuppression. [facility] TACROLIMUS LEVEL, TROUGH (DC E DRUG LEVEL)on 01-22-2024 Tacrolimus, Trough 7.9 ng/mL Normal Bone Susana ow Transplant: 4.0-12.0, Therapeutic: 5.0-15.0 [facility] Comment on above: Order Comment: Pleas e draw at specified interval PRIOR to dose. Do not hold dose to wait for level. Specimens batched twice per day, (M-F) and once per day weekendsMethod performed is a chemiluminescent microparticle immunoasssay on the [employer] i2000.The range is based on experience at [facility] and users should be aware that target concentrations vary widely depending on concomitant therapy, time post-transplant, and desired degree of immunosuppression. Performed By: #### T ACRO ####[facility] (DEFAULT)[address] [place] [address] TYPE AND SCREENon 01-22-2024 ABO/RH(D) TYPE Positive [facility] ABO/RH(D) TYPE Positive Normal [facility] Comment on above: Performed By: #### X M ####[facility] (DEFAULT)[address] [place] [address] US Unspecified body regionOr dered By: Unassigned Pacs on 01-22-2024 [facility] Work Phone: [place] Unspecified body regionon 01-22-2024 Radiology Study observation (narrative) [facility] CBC,PLATELETSon 01-21-2024 Erythrocyte distribution width (RBC) [Ratio] 14.0 % 10.9 - 14.3 % [facility] Hematocrit (Bld) [Volume fraction] 39.4 % Low 39.6 - 48.8 % [facility] Hemoglobin (Bld) [Mass/Vol] 12.7 g/dL Low 13.4 - 16.8 g/dL [facility] Interpretation and review of laboratory results Abnormal [facility] MCH (RBC) [Entitic mass] 28.0 pg 26.1 - 33.3 pg [facility] MCHC (RBC) [Mass/Vol] 32.2 g/dL 31.9 - 36.5 g/dL [facility] MCV (RBC) [Entitic vol] 87.0 fL 79.0 - 94.5 fL [facility] Platelet mean volume (Bld) [Entitic vol] 10.2 fL 8.7 - 12.3 fL [facility] Platelets (Bld) [#/Vol] 157 10*3/uL 146 - 337 K/uL [facility] RBC (Bld) [#/Vol] 4.53 10*6/uL [facility] WBC (Bld) [#/Vol] 3.42 10*3/uL Low 3.73 - 10. 10 K/uL [facility] Hematocrit (Bld) [Volume fraction] 39.4 % Low 39.6-48.8 [facility] Comment on above: Performed By: #### H EMOGC ####[facility] (DEFAULT)[address] [facility] [place] [address] Hemoglobin (Bld) [Mass/Vol] 12.7 g/dL Low 13.4-16.8 [facility] Comment on above: Performed By: #### H EMOGC ####[facility] (DEFAULT)[address] [place] [address], [place] [address] MCV (RBC) [Entitic vol] 87.0 fL Normal 79.0-94.5 [facility] Comment on above: Performed By: #### H EMOGC ####[facility] (DEFAULT)[address] [facility] [place] [address] Mean Cell Hgb 28.0 pg Normal 26.1-33.3 [facility] Comment on above: Performed By: #### H EMOGC ####[facility] (DEFAULT)[address] [facility] [place] [address] Mean Cell Hgb Conc 32.2 g/dL Normal 31.9-36.5 [facility] Comment on above: Performed By: #### H EMOGC ####[facility] (DEFAULT)[address] [facility] [place] [address] Platelet mean volume (Bld) [Entitic vol] 10.2 fL Normal 8.7-12.3 [facility] Comment on above: Performed By: #### H EMOGC ####[facility] (DEFAULT)[address] [facility] [place] [address] Platelets (Bld) [#/Vol] 157 10*3/uL Normal 146-337 [facility] Comment on above: Performed By: #### H EMOGC ####[facility] (DEFAULT)[address] [place] [address] RBC (Bld) [#/Vol] 4.53 10*6/uL Normal 4.38-5.83 [facility] Comment on above: Performed By: #### H [facility] ####[facility] (DEFAULT)[address] [place] [address] RBC Distribution 14.0 % Normal 10.9-14.3 [facility] Comment on above: Performed By: #### H [facility] ####[facility] (DEFAULT)[address] [place] [address] WBC (Bld) [#/Vol] 3.42 10*3/uL Low 3.73-10.10 [facility] Comment on above: Performed By: #### H [facility] ####[facility] (DEFAULT)[address] [place] [address] CHEM 7 (LYTES,BUN,CREA,GLUC) on 01-21-2024 Anion gap [Moles/Vol] 12 mmol/L 7 - 17 mmol/L [facility] Chloride [Moles/Vol] 107 mmol/L 98 - 10 8 mmol/L [facility] CO2 [Moles/Vol] 26 mmol/L 21 - 31 mmol/L [facility] Creatinine [Mass/Vol] 1.11 mg/dL 0.70 - 1.30 mg/dL [facility] eGFR, CKD-EPI, Male 80 - PINF [facility] Comment on above: Reported eGFR is bas ed on the CKD-EPI 2020 equation using creatinine, age, and sex. Glucose [Mass/Vol] 93 mg/dL 70 - 99 mg/dL [facility] Osmolality Calc [Osmolality] 295 [facility] Potassium [Moles/Vol] 3.9 mmol/L 3.5 - 5.0 mmol/L [facility] Sodium [Moles/Vol] 141 mmol/L 135 - 145 mmol/L [facility] Urea nitrogen [Mass/Vol] 15 mg/dL 7 - 25 mg/dL [facility] Urea nitrogen/Creatinine [Mass ratio] 14 mg/mg [facility] Anion gap [Moles/Vol] 12 mmol/L Normal 7-17 [facility] Comment on above: Performed By: #### Rod BLOOM CHM7 ####[facility] (DEFAULT)[address] [facility] [place] [address] Chloride [Moles/Vol] 107 mmol/L Normal 98-108 [facility] Comment on above: Performed By: #### Rod BLOOM CHM7 ####[facility] (DEFAULT)[address] [facility] [place] [address] CO2 [Moles/Vol] 26 mmol/L Normal 21-31 [facility] Comment on above: Performed By: #### Rod BLOOM CHM7 ####[facility] (DEFAULT)[address] [facility] [place] [address] Creatinine [Mass/Vol] 1.11 mg/dL Normal 0.70-1.30 [facility] Comment on above: Performed By: #### Rod BLOOM CHM7 ####[facility] (DEFAULT)[address] [place] [address] GFR/1.73 sq M.predicted among non-blacks MDRD (S/P/Bld) [Vol rate/Area] 80 mL/min/{1.73_m2} Normal >=60 [facility] Comment on above: Result Comment: Repo rted eGFR is based on the CKD-EPI 2020 equation using creatinine, age, and sex. Performed By: #### Rod BLOOM CHM7 ####[facility] (DEFAULT)[address] [facility] [place] [address] Glucose [Mass/Vol] 93 mg/dL Normal 70-99 [facility] Comment on above: Performed By: #### Rod BLOOM CHM7 ####[facility] (DEFAULT)[address] [facility] [place] [address] Osmolality [Osmolality] 295 mosm/kg Normal 278-305 [facility] Comment on above: Performed By: #### Rod BLOOM CHM7 ####[facility] (DEFAULT)[address] [place] [address] Potassium [Moles/Vol] 3.9 mmol/L Normal 3.5-5.0 [facility] Comment on above: Performed By: #### Rod BLOOM CHM7 ####[facility] (DEFAULT)[address] [place] [address] Sodium [Moles/Vol] 141 mmol/L Normal 135-145 [facility] Comment on above: Performed By: #### TJ RAMÍREZ7 ####[facility] (DEFAULT)[address] [place] [address] Urea nitrogen [Mass/Vol] 15 mg/dL Normal 7-25 [facility] Comment on above: Performed By: #### TJ RAMÍREZ7 ####[facility] (DEFAULT)[address] [place] [address] Urea nitrogen/Creatinine [Mass ratio] 14 mg/mg Normal [facility] Comment on above: Performed By: #### Rod BLOOM CHM7 ####[facility] (DEFAULT)[address] [place] [address] Cardiac catheterization stud yOrdered By: Kelvin Donohue on 01-21-2024 Body surface area Derived from formula 2.08 m2 [facility] Work Phone: [facility] Work Phone: Cardiac catheterization stud yon 01-21-2024 [...] with fistula occlusion Kelvin Donohue MD, MPH [employer]. Section of Advanced Heart Failure and Transplantation Division of Cardiovascular Diseases [facility] [email or web address] INVASIVE CARDIOVASCULAR PROC EDUREon 01-21-2024 INVASIVE CARDIOVASCULAR PROCEDURE Normal [facility] MAGNESIUMon 01-21-2024 Interpretation and review of laboratory results Abnormal [facility] Magnesium [Mass/Vol] 1.5 mg/dL Low 1.6 - 2 .6 mg/dL [facility] Magnesium [Mass/Vol] 1.5 mg/dL Low 1.6-2.6 [facility] Comment on above: Performed By: #### M MERLE [facility] ####[facility] (DEFAULT)[address] [place] [address] No Panel Informationon 01-21 [facility] TACROLIMUS LEVEL, TROUGH (DC E DRUG LEVEL)on 01-21-2024 Interpretation and review of laboratory results Normal [facility] Tacrolimus (Bld) [Mass/Vol] 7.2 ng/mL Bone Marrow Transplant: 4.0-12.0, Therapeutic: 5.0-15.0 [facility] Method performed is a chemiluminescent microparticle immunoasssay on the [employer] i2000. The range is based on experience at [facility] and users should be aware that target concentrations vary widely depending on concomitant therapy, time post-transplant, and desired degree of immunosuppression. [facility] Tacrolimus, Trough 7.2 ng/mL Normal Bone Susana ow Transplant: 4.0-12.0, Therapeutic: 5.0-15.0 [facility] Comment on above: Order Comment: Dilan gregory draw at specified interval PRIOR to dose. Do not hold dose to wait for level. Specimens batched twice per day, (M-F) and once per day weekendsMethod performed is a chemiluminescent microparticle immunoasssay on the [employer] i2000.The range is based on experience at [facility] and users should be aware that target concentrations vary widely depending on concomitant therapy, time post-transplant, and desired degree of immunosuppression. Performed By: #### T ACRO ####[facility] (DEFAULT)[address] [place] [address] CBC,PLATELETSon 01-20-2024 Erythrocyte distribution width (RBC) [Ratio] 13.8 % 10.9 - 14.3 % [facility] Hematocrit (Bld) [Volume fraction] 38.9 % Low 39.6 - 48.8 % [facility] Hemoglobin (Bld) [Mass/Vol] 12.5 g/dL Low 13.4 - 16.8 g/dL [facility] Interpretation and review of laboratory results Abnormal [facility] MCH (RBC) [Entitic mass] 28.0 pg 26.1 - 33.3 pg [facility] MCHC (RBC) [Mass/Vol] 32.1 g/dL 31.9 - 36.5 g/dL [facility] MCV (RBC) [Entitic vol] 87.2 fL 79.0 - 94.5 fL [facility] Platelet mean volume (Bld) [Entitic vol] 10.2 fL 8.7 - 12.3 fL [facility] Platelets (Bld) [#/Vol] 166 10*3/uL 146 - 337 K/uL [facility] RBC (Bld) [#/Vol] 4.46 10*6/uL [facility] WBC (Bld) [#/Vol] 3.79 10*3/uL 3.73 - 10. 10 K/uL [facility] Hematocrit (Bld) [Volume fraction] 38.9 % Low 39.6-48.8 [facility] Comment on above: Performed By: #### H EMOGC ####[facility] (DEFAULT)[address] [place] [address] Hemoglobin (Bld) [Mass/Vol] 12.5 g/dL Low 13.4-16.8 [facility] Comment on above: Performed By: #### H EMOGC ####[facility] (DEFAULT)[address] [facility] [place] [address] MCV (RBC) [Entitic vol] 87.2 fL Normal 79.0-94.5 [facility] Comment on above: Performed By: #### H EMOGC ####[facility] (DEFAULT)[address] [facility] [place] [address] Mean Cell Hgb 28.0 pg Normal 26.1-33.3 [facility] Comment on above: Performed By: #### H EMOGC ####[facility] (DEFAULT)[address] [facility] [place] [address] Mean Cell Hgb Conc 32.1 g/dL Normal 31.9-36.5 [facility] Comment on above: Performed By: #### H EMOGC ####[facility] (DEFAULT)[address] [place] [address] Platelet mean volume (Bld) [Entitic vol] 10.2 fL Normal 8.7-12.3 [facility] Comment on above: Performed By: #### H EMOGC ####[facility] [place] (DEFAULT)[address] [facility] [place] [address] Platelets (Bld) [#/Vol] 166 10*3/uL Normal 146-337 [facility] Comment on above: Performed By: #### H EMOGC ####[facility] (DEFAULT)[address] [facility] [place] [address] RBC (Bld) [#/Vol] 4.46 10*6/uL Normal 4.38-5.83 [facility] Comment on above: Performed By: #### H [facility] [place] ####[facility] (DEFAULT)[address] [place] [address] RBC Distribution 13.8 % Normal 10.9-14.3 [facility] Comment on above: Performed By: #### H [facility] [place] ####[facility] (DEFAULT)[address] [place] [address] WBC (Bld) [#/Vol] 3.79 10*3/uL Normal 3.73-10.10 [facility] Comment on above: Performed By: #### H [facility] [place] ####[facility] (DEFAULT)[address] [place] [address] CHEM 7 (LYTES,BUN,CREA,GLUC) on 01-20-2024 Anion gap [Moles/Vol] 12 mmol/L 7 - 17 mmol/L [facility] Chloride [Moles/Vol] 105 mmol/L 98 - 10 8 mmol/L [facility] CO2 [Moles/Vol] 28 mmol/L 21 - 31 mmol/L [facility] Creatinine [Mass/Vol] 1.12 mg/dL 0.70 - 1.30 mg/dL [facility] eGFR, CKD-EPI, Male 80 - PINF [facility] Comment on above: Reported eGFR is bas ed on the CKD-EPI 2020 equation using creatinine, age, and sex. Glucose [Mass/Vol] 88 mg/dL 70 - 99 mg/dL [facility]ality] [facility] Potassium [Moles/Vol] 3.8 mmol/L 3.5 - 5.0 mmol/L [facility] Sodium [Moles/Vol] 141 mmol/L 135 - 145 [facility] Urea nitrogen [Mass/Vol] 15 mg/dL 7 - 25 mg/[facility] Urea nitrogen/Creatinine [Mass ratio] 13 mg[facility] Anion gap [Moles/Vol] 12 mmol/L Normal 7-17 [facility] Comment on above: Performed By: #### M TAVO BLOOM, CHM7 ####[facility] (DEFAULT)[address] [facility] [place] [address] Chloride [Moles/Vol] 105 mmol/L Normal 98-108 [facility] Comment on above: Performed By: #### TAVO RAMÍREZ, CHM7 ####[facility] (DEFAULT)[address] [place] [address] CO2 [Moles/Vol] 28 mmol/L Normal 21-31 [facility] Comment on above: Performed By: #### TAVO RAMÍREZ, CHM7 ####[facility] (DEFAULT)[address] [facility] [facility] [place] [address] Creatinine [Mass/Vol] 1.12 mg/dL Normal 0.70-1.30 [facility] Comment on above: Performed By: #### TAVO RAMÍREZ, CHM7 ####[facility] (DEFAULT)[address] [facility] [place] [address] GFR/1.73 sq M.predicted among non-blacks MDRD (S/P/Bld) [Vol rate/Area] 79 mL/min/{1.73_m2} Normal >=60 [facility] Comment on above: Result Comment: Repo rted eGFR is based on the CKD-EPI 2020 equation using creatinine, age, and sex. Performed By: #### M TAVO BLOOM, CHM7 ####[facility] (DEFAULT)[address] [facility] [place] [address] Glucose [Mass/Vol] 88 mg/dL Normal 70-99 [facility] Comment on above: Performed By: #### TAVO RAMÍREZ, CHM7 ####[facility] (DEFAULT)[address] [facility] [place] [address] Osmolality [Osmolality] 294 mosm/kg Normal 278-305 [facility] Comment on above: Performed By: #### M TAVO BLOOM, CHM7 ####[facility] (DEFAULT)[address] [place] [address] Potassium [Moles/Vol] 3.8 mmol/L Normal 3.5-5.0 [facility] Comment on above: Performed By: #### Rod BLOOM HFP, CHM7 ####[facility] (DEFAULT)[address] [place] [address] Sodium [Moles/Vol] 141 mmol/L Normal 135-145 [facility] Comment on above: Performed By: #### M TAVO BLOOM, CHM7 ####[facility] (DEFAULT)[address] [place] [address] Urea nitrogen [Mass/Vol] 15 mg/dL Normal 7-25 [facility] Comment on above: Performed By: #### TAVO RAMÍREZ, CHM7 ####[facility] (DEFAULT)[address] [place] [address] Urea nitrogen/Creatinine [Mass ratio] 13 mg/mg Normal [facility] Comment on above: Performed By: #### TAVO RAMÍREZ, CHM7 ####[facility] (DEFAULT)[address] [place] [address] Cardiac catheterization stud yon 01-20-2024 [facility] Radiology Study observation (narrative) [facility] Radiology Study observation (narrative) [facility] EBV BY PCR, QUANTITATIVE,BLO ODOrdered By: Charlotte Jensen on 01-20-2024 EBV DNA ESTELITA+probe (Unsp spec) [#/Vol] JUSTINF [facility] Interpretation and review of laboratory results Normal [facility] This test was perfor med using a real time PCR assay. The dynamic range for this assay is 1000-5,000,000 IU/mL. A result <1000 IU/mL does not rule out the presence of EBV DNA in quantities below the sensitivity of this assay. This test was developed and its performance characteristics determined by [facility]. It has not been cleared or approved by the FDA. The laboratory is regulated under CLIA as qualified to perform high-complexity testing. This test is used for clinical purposes. It should not be regarded as investigational or for research. [facility] HEPATIC FUNCTION PANELon Albumin [Mass/Vol] 3.7 g/dL 3.5 - 5.0 g/dL [facility] ALP [Catalytic activity/Vol] 73 U/L 32 - 126 U/L [facility] ALT [Catalytic activity/Vol] 12 U/L 10 - 52 U/L [facility] AST [Catalytic activity/Vol] 19 U/L 10 - 39 U/L [facility] Bilirubin [Mass/Vol] 2.1 mg/dL High NINF - 1.5 mg/dL [facility] Bilirubin.direct [Mass/Vol] 0.5 mg/dL High NINF - 0.3 mg/dL [facility] Interpretation and review of laboratory results Abnormal [facility] Protein [Mass/Vol] 6.1 g/dL Low 6.4 - 8.3 g/dL [facility] Albumin [Mass/Vol] 3.7 g/dL Normal 3.5-5.0 [facility] Comment on above: Performed By: #### M TAVO BLOOM, CHM7 ####[facility] (DEFAULT)[address] [place] [address] ALP [Catalytic activity/Vol] 73 U/L Normal 32-126 [facility] Comment on above: Performed By: #### M TAVO BLOOM, CHM7 ####[facility] (DEFAULT)[address] [place] [address] ALT [Catalytic activity/Vol] 12 U/L Normal 10-52 [facility] Comment on above: Performed By: #### Rod BLOOM HFP, CHM7 ####[facility] (DEFAULT)[address] [place] [address] AST [Catalytic activity/Vol] 19 U/L Normal 10-39 [facility] Comment on above: Performed By: #### TAVO RAMÍREZ, CHM7 ####[facility] (DEFAULT)[address] [place] [address] Bilirubin [Mass/Vol] 2.1 mg/dL High <1.5 [facility] Comment on above: Performed By: #### TAVO RAMÍREZ, CHM7 ####[facility] (DEFAULT)[address] [place] [address] Bilirubin.indirect [Mass/Vol] 0.5 mg/dL High <0.3 [facility] Comment on above: Performed By: #### TAVO RAMÍREZ, CHM7 ####[facility] (DEFAULT)[address] [place] [address] Protein [Mass/Vol] 6.1 g/dL Low 6.4-8.3 [facility] Comment on above: Performed By: #### TAVO RAMÍREZ, CHM7 ####[facility] (DEFAULT)[address] [place] [address] ITRACONAZOLE LEVELon 024 Hydroxyitraconazole 7.6 mcg/mL Normal [facility] Comment on above: Order Comment: Dilan gregory draw level at specified interval PRIOR to dose. Result Comment: ---- REFERENCE VALUE No therapeutic range established; activity and serumconcentration are similar to parent drug. ADDITIONAL INFORMATION This test was developed and its performance characteristicsdetermined by [facility] in a manner consistent with CLIArequirements. This test has not been cleared or approved bythe U.S. Food and Drug Administration.Test Performed by:[facility] [place], [place] [id number] Director: Rosendo Bose M.D. Ph.D.; CLIA# [id number] Performed By: #### Y ITCON ####[facility] (DEFAULT)[address] [place] [address] Itraconazole 6.0 mcg/mL Normal [facility] Comment on above: Order Comment: Pleas e draw level at specified interval PRIOR to dose. Result Comment: ---- REFERENCE VALUE-------------------------->0.5 (localized infection), >1.0 (systemic infection) Performed By: #### Y ITCON ####[facility] (DEFAULT)[address] [place] [address] MAGNESIUMon 01-20-2024 Interpretation and review of laboratory results Normal [facility] Magnesium [Mass/Vol] 1.6 mg/dL 1.6 - 2 .6 mg/dL [facility] Magnesium [Mass/Vol] 1.6 mg/dL Normal 1.6-2.6 [facility] Comment on above: Performed By: #### M MERLE, [facility], M7 ####[facility] (DEFAULT)[address] [place] [address] No Panel Informationon 01-20 [facility] POCT CO-OXIMETRYon Hemoglobin (Bld) [Mass/Vol] 12.8 g/dL Low 13.4 - 16.8 g/dL [facility] Interpretation and review of laboratory results Abnormal [facility] Oxyhemoglobin 69 % Low 94 - 98 % [facility] Ordering physician notified. Test performed at address of the patient encounter. [facility] Hemoglobin (Bld) [Mass/Vol] 13.3 g/dL Low 13.4 - 16.8 g/dL [facility] Interpretation and review of laboratory results Abnormal [facility] Oxyhemoglobin 69 % Low 94 - 98 % [facility] Ordering physician notified. Test performed at address of the patient encounter. [facility] PT,INR,PTTon 01-20-2024 aPTT Coag (PPP) [Time] 30.6 s [facility] INR Coag (Bld) [Relative time] 1.2 {INR} High 0.9 - 1.1 [facility] Interpretation and review of laboratory results Abnormal [facility] PT Coag (PPP) [Time] 15.5 s High [facility] aPTT Coag (Bld) [Time] 30.6 s Normal 24.0-34.3 [facility] Comment on above: Performed By: #### P TPTT ####[facility] (DEFAULT)[address] [place] [address] INR Coag (PPP) [Relative time] 1.2 {INR} High 0.9-1.1 [facility] Comment on above: Performed By: #### P TPTT ####[facility] (DEFAULT)[address] [facility] [place] [address] PT Coag (PPP) [Time] 15.5 s High 11.9-14.2 [facility] Comment on above: Performed By: #### P TPTT ####[facility] (DEFAULT)[address] [place] [address] TACROLIMUS LEVEL, TROUGH (DC E DRUG LEVEL)Ordered By: Yanira Marcum on 01-20-2024 Interpretation and review of laboratory results Normal [facility] Tacrolimus (Bld) [Mass/Vol] 7.7 ng/mL Bone Marrow Transplant: 4.0-12.0, Therapeutic: 5.0-15.0 [facility] Method performed is a chemiluminescent microparticle immunoasssay on the [employer] i2000. The range is based on experience at [facility] and users should be aware that target concentrations vary widely depending on concomitant therapy, time post-transplant, and desired degree of immunosuppression. [facility] TACROLIMUS LEVEL, TROUGH (DC E DRUG LEVEL)on 01-20-2024 Tacrolimus, Trough 7.7 ng/mL Normal Bone Susana ow Transplant: 4.0-12.0, Therapeutic: 5.0-15.0 [facility] Comment on above: Order Comment: Pleas e draw at specified interval PRIOR to dose. Do not hold dose to wait for level. Specimens batched twice per day, (M-F) and once per day weekendsMethod performed is a chemiluminescent microparticle immunoasssay on the [employer] i2000.The range is based on experience at [facility] and users should be aware that target concentrations vary widely depending on concomitant therapy, time post-transplant, and desired degree of immunosuppression. Performed By: #### T ACRO ####[facility] (DEFAULT)[address] [place] [address] CBC,PLATELETSon 01-19-2024 Erythrocyte distribution width (RBC) [Ratio] 13.9 % 10.9 - 14.3 % [facility] Hematocrit (Bld) [Volume fraction] 37.5 % Low 39.6 - 48.8 % [facility] Hemoglobin (Bld) [Mass/Vol] 12.1 g/dL Low 13.4 - 16.8 g/dL [facility] Interpretation and review of laboratory results Abnormal [facility] MCH (RBC) [Entitic mass] 28.3 pg 26.1 - 33.3 pg [facility] MCHC (RBC) [Mass/Vol] 32.3 g/dL 31.9 - 36.5 g/dL [facility] MCV (RBC) [Entitic vol] 87.8 fL 79.0 - 94.5 fL [facility] Platelet mean volume (Bld) [Entitic vol] 10.4 fL 8.7 - 12.3 fL [facility] Platelets (Bld) [#/Vol] 163 10*3/uL 146 - 337 K/uL [facility] RBC (Bld) [#/Vol] 4.27 10*6/uL Low [facility] WBC (Bld) [#/Vol] 3.69 10*3/uL Low 3.73 - 10. 10 K/uL [facility] Hematocrit (Bld) [Volume fraction] 37.5 % Low 39.6-48.8 [facility] Comment on above: Performed By: #### H EMOGC ####[facility] (DEFAULT)[address] [place] [address] Hemoglobin (Bld) [Mass/Vol] 12.1 g/dL Low 13.4-16.8 [facility] Comment on above: Performed By: #### H EMOGC ####[facility] (DEFAULT)[address] [place] [address], [place] [address] MCV (RBC) [Entitic vol] 87.8 fL Normal 79.0-94.5 [facility] Comment on above: Performed By: #### H EMOGC ####[facility] (DEFAULT)[address] [facility] [place] [address] Mean Cell Hgb 28.3 pg Normal 26.1-33.3 [facility] Comment on above: Performed By: #### H EMOGC ####[facility] (DEFAULT)[address] [facility] [place] [address] Mean Cell Hgb Conc 32.3 g/dL Normal 31.9-36.5 [facility] Comment on above: Performed By: #### H EMOGC ####[facility] (DEFAULT)[address] [facility] [place] [address] Platelet mean volume (Bld) [Entitic vol] 10.4 fL Normal 8.7-12.3 [facility] Comment on above: Performed By: #### H EMOGC ####[facility] (DEFAULT)[address] [facility] [place] [address] Platelets (Bld) [#/Vol] 163 10*3/uL Normal 146-337 [facility] Comment on above: Performed By: #### H [facility] [place] ####[facility] (DEFAULT)[address] [place] [address] RBC (Bld) [#/Vol] 4.27 10*6/uL Low 4.38-5.83 [facility] Comment on above: Performed By: #### H [facility] [place] ####[facility] (DEFAULT)[address] [place] [address] RBC Distribution 13.9 % Normal 10.9-14.3 [facility] Comment on above: Performed By: #### H [facility] [place] ####[facility] (DEFAULT)[address] [place] [address] WBC (Bld) [#/Vol] 3.69 10*3/uL Low 3.73-10.10 [facility] Comment on above: Performed By: #### H [facility] [place] ####[facility] (DEFAULT)[address] [place] [address] CHEM 7 (LYTES,BUN,CREA,GLUC) on 01-19-2024 Anion gap [Moles/Vol] 14 mmol/L 7 - 17 mmol/L [facility] Chloride [Moles/Vol] 106 mmol/L 98 - 10 8 mmol/L [facility] CO2 [Moles/Vol] 24 mmol/L 21 - 31 mmol/L [facility] Creatinine [Mass/Vol] 1.13 mg/dL 0.70 - 1.30 mg/dL [facility] eGFR, CKD-EPI, Male 78 - PINF [facility] Comment on above: Reported eGFR is bas ed on the CKD-EPI 2020 equation using creatinine, age, and sex. Glucose [Mass/Vol] 86 mg/dL 70 - 99 mg/dL [facility] Osmolality Calc [Osmolality] 293 [facility] Potassium [Moles/Vol] 3.8 mmol/L 3.5 - 5.0 mmol/L [facility] Sodium [Moles/Vol] 140 mmol/L 135 - 145 mmol/L [facility] Urea nitrogen [Mass/Vol] 16 mg/dL 7 - 25 mg/dL [facility] Urea nitrogen/Creatinine [Mass ratio] 14 mg/mg [facility] Anion gap [Moles/Vol] 14 mmol/L Normal 7-17 [facility] Comment on above: Performed By: #### TJ RAMÍREZ7 ####[facility] (DEFAULT)[address] [facility] [place] [address] Chloride [Moles/Vol] 106 mmol/L Normal 98-108 [facility] Comment on above: Performed By: #### TJ RAMÍREZ7 ####[facility] (DEFAULT)[address] [facility] [place] [address] CO2 [Moles/Vol] 24 mmol/L Normal 21-31 [facility] Comment on above: Performed By: #### TJ RAMÍREZ7 ####[facility] (DEFAULT)[address] [facility] [place] [address] Creatinine [Mass/Vol] 1.13 mg/dL Normal 0.70-1.30 [facility] Comment on above: Performed By: #### TJ RAMÍREZ7 ####[facility] (DEFAULT)[address] [facility] [place] [address] GFR/1.73 sq M.predicted among non-blacks MDRD (S/P/Bld) [Vol rate/Area] 78 mL/min/{1.73_m2} Normal >=60 [facility] Comment on above: Result Comment: Repo rted eGFR is based on the CKD-EPI 2020 equation using creatinine, age, and sex. Performed By: #### TJ RAMÍREZ7 ####[facility] (DEFAULT)[address] [facility] [place] [address] Glucose [Mass/Vol] 86 mg/dL Normal 70-99 [facility] Comment on above: Performed By: #### TJ RAMÍREZ7 ####[facility] (DEFAULT)[address] [place] [address] Osmolality [Osmolality] 293 mosm/kg Normal 278-305 [facility] Comment on above: Performed By: #### Rod BLOOM CHM7 ####[facility] (DEFAULT)[address] [place] [address] Potassium [Moles/Vol] 3.8 mmol/L Normal 3.5-5.0 [facility] Comment on above: Performed By: #### Rod BLOOM CHM7 ####[facility] (DEFAULT)[address] [place] [address] Sodium [Moles/Vol] 140 mmol/L Normal 135-145 [facility] Comment on above: Performed By: #### Rod BLOOM CHM7 ####[facility] (DEFAULT)[address] [place] [address] Urea nitrogen [Mass/Vol] 16 mg/dL Normal 7-25 [facility] Comment on above: Performed By: #### Rod BLOOM CHM7 ####[facility] (DEFAULT)[address] [place] [address] Urea nitrogen/Creatinine [Mass ratio] 14 mg/mg Normal [facility] Comment on above: Performed By: #### Rod BLOOM CHM7 ####[facility] (DEFAULT)[address] [place] [address] EBV BY PCR, QUANTITATIVE,BLO ODon 01-19-2024 Ebv By Pcr, Quant, Blood <1000 Normal <1000 [facility] Comment on above: Order Comment: This test was performed using a real time PCR assay. The dynamic range for this assay is 1000-5,000,000 IU/mL. A result <1000 IU/mL does not rule out the presence of EBV DNA in quantities below the sensitivity of this assay. This test was developed and its performance characteristics determined by [facility]. It has not been cleared or approved by the FDA. The laboratory is regulated under CLIA as qualified to perform high-complexity testing. This test is used for clinical purposes. It should not be regarded as investigational or for research. Performed By: #### E BVPCR ####[facility] (DEFAULT)[address] [address] HISTOPLASMA AND BLASTOMYCES ANTIGEN, ENZYME IMMUNOASSAY, SERMon 01-19-2024 Histoplasma/Blastomy antonia Ag Result Not detected Not Detected [facility] Comment on above: No antigen from Hist oplasma or Blastomyces detected. False negative results may occur depending on extent of disease, and/or site of infection. Repeat testing on a new specimen if clinically indicated. Histoplasma/Blastomy antonia Ag Value Not detected ng/mL [facility] Comment on above: ADDITIONAL INFORMATION This test was developed and its performance characteristics determined by [facility] in a manner consistent with CLIA requirements. This test has not been cleared or approved by the U.S. Food and Drug Administration. Test Performed by: [place] [address] [place] [address] End Worker: Rosendo Bose M.D. Ph.D.; CLIA# [id number] [facility] MAGNESIUMon 01-19-2024 Interpretation and review of laboratory results Normal [facility] Magnesium [Mass/Vol] 1.8 mg/dL 1.6 - 2 .6 mg/dL [facility] Magnesium [Mass/Vol] 1.8 mg/dL Normal 1.6-2.6 [facility] Comment on above: Performed By: #### M GO, CHM7 ####[facility] (DEFAULT)[address] [place] [address] No Panel Informationon 01-19 [facility] TACROLIMUS LEVEL, TROUGH (DC E DRUG LEVEL)Ordered By: Raymundo Mehta on 01-19-2024 Interpretation and review of laboratory results Normal [facility] Tacrolimus (Bld) [Mass/Vol] 6.8 ng/mL Bone Marrow Transplant: 4.0-12.0, Therapeutic: 5.0-15.0 [facility] Method performed is a chemiluminescent microparticle immunoasssay on the [employer] i2000. The range is based on experience at [facility] and users should be aware that target concentrations vary widely depending on concomitant therapy, time post-transplant, and desired degree of immunosuppression. [facility] TACROLIMUS LEVEL, TROUGH (DC E DRUG LEVEL)on 01-19-2024 Tacrolimus, Trough 6.8 ng/mL Normal Bone Susana ow Transplant: 4.0-12.0, Therapeutic: 5.0-15.0 [facility] Comment on above: Order Comment: Pleas e draw at specified interval PRIOR to dose. Do not hold dose to wait for level. Specimens batched twice per day, (M-F) and once per day weekendsMethod performed is a chemiluminescent microparticle immunoasssay on the [employer] i2000.The range is based on experience at [facility] and users should be aware that target concentrations vary widely depending on concomitant therapy, time post-transplant, and desired degree of immunosuppression. Performed By: #### T ACRO ####[facility] (DEFAULT)[address] [place] [address] US AV fistulaOrdered By: Diana Reyes on 01-19-2024 [facility] Work Phone: US AV fistulaon 01-19-2024 Radiology Study observation (narrative) [facility] AFP TUMOR MARKEROrdered By: Francisca Alaniz on 01-18-2024 AFP.tumor marker [Mass/Vol] ng/mL NINF - 8.1 ng/mL [facility] Comment on above: This test was perfor med on the [employer] IM Immunoassay platform by [employer] which is a two-site sandwich chemiluminescent immunoassay. It is important to note that assays using different manufacturers and/or methods may not be comparable. Interpretation and review of laboratory results Normal [facility] CBC,PLATELETSon 01-18-2024 Erythrocyte distribution width (RBC) [Ratio] 13.9 % 10.9 - 14.3 % [facility] Hematocrit (Bld) [Volume fraction] 38.4 % Low 39.6 - 48.8 % [facility] Hemoglobin (Bld) [Mass/Vol] 12.1 g/dL Low 13.4 - 16.8 g/dL [facility] Interpretation and review of laboratory results Abnormal [facility] MCH (RBC) [Entitic mass] 27.8 pg 26.1 - 33.3 pg [facility] MCHC (RBC) [Mass/Vol] 31.5 g/dL Low 31.9 - 36.5 g/dL [facility] MCV (RBC) [Entitic vol] 88.3 fL 79.0 - 94.5 fL [facility] Platelet mean volume (Bld) [Entitic vol] 10.4 fL 8.7 - 12.3 fL [facility] Platelets (Bld) [#/Vol] 183 10*3/uL 146 - 337 K/uL [facility] RBC (Bld) [#/Vol] 4.35 10*6/uL Low [facility] WBC (Bld) [#/Vol] 3.66 10*3/uL Low 3.73 - 10. 10 K/uL [facility] Hematocrit (Bld) [Volume fraction] 38.4 % Low 39.6-48.8 [facility] Comment on above: Performed By: #### H [facility] [place] ####[facility] (DEFAULT)[address] [place] [address] Hemoglobin (Bld) [Mass/Vol] 12.1 g/dL Low 13.4-16.8 [facility] Comment on above: Performed By: #### H [facility] [place] ####[facility] (DEFAULT)[address] [place] [address] MCV (RBC) [Entitic vol] 88.3 fL Normal 79.0-94.5 [facility] Comment on above: Performed By: #### H [facility] [place] ####[facility] (DEFAULT)[address] [place] [address] Mean Cell Hgb 27.8 pg Normal 26.1-33.3 [facility] Comment on above: Performed By: #### H EMOGC ####[facility] (DEFAULT)[address] [place] [address] Mean Cell Hgb Conc 31.5 g/dL Low 31.9-36.5 [facility] Comment on above: Performed By: #### H EMOGC ####[facility] (DEFAULT)[address] [facility] [place] [address] Platelet mean volume (Bld) [Entitic vol] 10.4 fL Normal 8.7-12.3 [facility] Comment on above: Performed By: #### H EMOGC ####[facility] (DEFAULT)[address] [facility] [place] [address] Platelets (Bld) [#/Vol] 183 10*3/uL Normal 146-337 [facility] Comment on above: Performed By: #### H EMOGC ####[facility] (DEFAULT)[address] [facility] [place] [address] RBC (Bld) [#/Vol] 4.35 10*6/uL Low 4.38-5.83 [facility] Comment on above: Performed By: #### H EMOGC ####[facility] (DEFAULT)[address] [facility] [place] [address] RBC Distribution 13.9 % Normal 10.9-14.3 [facility] Comment on above: Performed By: #### H EMOGC ####[facility] (DEFAULT)[address] [facility] [place] [address] WBC (Bld) [#/Vol] 3.66 10*3/uL Low 3.73-10.10 [facility] Comment on above: Performed By: #### H EMOGC ####[facility] (DEFAULT)[address] [facility] [place] [address] CHEM 7 (LYTES,BUN,CREA,GLUC) on 01-18-2024 Anion gap [Moles/Vol] 11 mmol/L 7 - 17 mmol/L [facility] Chloride [Moles/Vol] 108 mmol/L 98 - 10 8 mmol/L [facility] CO2 [Moles/Vol] 26 mmol/L 21 - 31 mmol/L [facility] Creatinine [Mass/Vol] 1.00 mg/dL 0.70 - 1.30 mg/dL [facility] eGFR, CKD-EPI, Male - PINF [facility] Comment on above: Reported eGFR is bas ed on the CKD-EPI 2020 equation using creatinine, age, and sex. Glucose [Mass/Vol] 89 mg/dL 70 - 99 mg/dL [facility] Osmolality Calc [Osmolality] 295 [facility] Potassium [Moles/Vol] 3.9 mmol/L 3.5 - 5.0 mmol/L [facility] Sodium [Moles/Vol] 141 mmol/L 135 - 145 mmol/L [facility] Urea nitrogen [Mass/Vol] 16 mg/dL 7 - 25 mg/dL [facility] Urea nitrogen/Creatinine [Mass ratio] 16 mg/mg [facility] Anion gap [Moles/Vol] 11 mmol/L Normal 7-17 [facility] Comment on above: Performed By: #### C HM7, HFP, MGO, TSHQR ####[facility] (DEFAULT)[address] [place] [address] Chloride [Moles/Vol] 108 mmol/L Normal 98-108 [facility] Comment on above: Performed By: #### C HM7, HFP, MGO, TSHQR ####[facility] (DEFAULT)[address] [place] [address] CO2 [Moles/Vol] 26 mmol/L Normal 21-31 [facility] Comment on above: Performed By: #### C HM7, HFP, MGO, TSHQR ####[facility] (DEFAULT)[address] [place] [address] Creatinine [Mass/Vol] 1.00 mg/dL Normal 0.70-1.30 [facility] Comment on above: Performed By: #### C HM7, HFP, MGO, TSHQR ####[facility] (DEFAULT)[address] [place] [address] eGFR, CKD-EPI, Male > Normal >=60 [facility] Comment on above: Result Comment: Repo rted eGFR is based on the CKD-EPI 2020 equation using creatinine, age, and sex. Performed By: #### C HM7, HFP, MGO, TSHQR ####[facility] (DEFAULT)[address] [facility] [place] [address] Glucose [Mass/Vol] 89 mg/dL Normal 70-99 [facility] Comment on above: Performed By: #### C HM7, HFP, MGO, TSHQR ####[facility] (DEFAULT)[address] [place] [address] Osmolality [Osmolality] 295 mosm/kg Normal 278-305 [facility] Comment on above: Performed By: #### C HM7, HFP, MGO, TSHQR ####[facility] (DEFAULT)[address] [place] [address] Potassium [Moles/Vol] 3.9 mmol/L Normal 3.5-5.0 [facility] Comment on above: Performed By: #### C HM7, HFP, MGO, TSHQR ####[facility] (DEFAULT)[address] [place] [address] Sodium [Moles/Vol] 141 mmol/L Normal 135-145 [facility] Comment on above: Performed By: #### C HM7, HFP, MGO, TSHQR ####[facility] (DEFAULT)[address] [facility] [place] [address] Urea nitrogen [Mass/Vol] 16 mg/dL Normal 7-25 [facility] Comment on above: Performed By: #### C HM7, HFP, MGO, TSHQR ####[facility] (DEFAULT)[address] [place] [address] Urea nitrogen/Creatinine [Mass ratio] 16 mg/mg Normal [facility] Comment on above: Performed By: #### C HM7, HFP, MGO, TSHQR ####[facility] (DEFAULT)[address] [place] [address] Cardiac echo study Procedure Ordered By: Gian Carlos on 01-18-2024 Ao ASC index 1.63 cm/m2 [facility] Work Phone: [phone] Ao peak meliton 1.46 m/s [facility] Work Phone: [phone] Ao SOV [facility] 1.56 [facility]: [phone] Ao STJ index 1.25 cm/m2 [facility] Work Phone: [phone] [facility]o VTI 35.74 [facility]: [phone] Ascending aorta 3.39 [facility] Work Phone: [phone] AV LVOT peak gradient 4 mmHg [facility] Work Phone: [phone] AV mean gradient 5 [facility] Work Phone: [phone] AV peak gradient 9 mmHG [facility] Work Phone: [phone] AV valve area 3.09 cm2 [facility] Work Phone: [phone] AV Velocity Ratio 0.73 [facility] Work Phone: [phone] VEGA (continuity Vmax) 3.01 cm2 [facility] Work Phone: [phone] VEGA (continuity VTI) 3.09 cm2 [facility] Work Phone: VEGA index (continuity Vmax) 1.45 m[facility]s [facility]: VEGA index (continuity VTI) 1.49 cm2/m2 [facility] Work Phone: Avg e' pk meliton 0.07 m/s [facility] Work Phone: Avg E/e' ratio 19.45 [facility] Work Phone: Body surface area Derived from formula 2.08 m2 [facility] Work Phone: BP EF 62 % [facility] Work Phone: DI (Vmax) 0.73 [facility] Work Phone: DI (VTI) 0.74 m/2 [facility] Work Phone: E wave decelartion time 180.38 msec [facility] Work Phone: e' lateral pk meliton 0.0789 m/s [facility] Work Phone: e' lateral pk meliton 0.08 m/s [facility] Work Phone: e' septal pk meliton 0.0653 m/s [facility] Work Phone: e' septal pk meliton 0.07 m/s [facility] Work Phone: E/A ratio 2.67 [facility] Work Phone: E/e' lateral ratio 17.62 [facility] Work Phone: E/e' septal ratio 21.29 [facility] Work Phone: EF SP 2CH 66 [facility] Work Phone: EF SP 4CH 58 [facility] Work Phone: FS 28 % 28 - 44 % [facility] Work Phone: IVC ostium 2.30 cm [facility] Work Phone: IVS 1.11 cm [facility] Work Phone: LA AREA 2CH 24.36 cm2 [facility] Work Phone: LA area 4CH 20.36 cm2 [facility] Work Phone: LA ESV BP (MOD) 64 mL [facility] Work Phone: LA ESV BP (MOD) index 31 mL/m2 [facility] Work Phone: LA ESV SP 2CH (MOD) 76 mL [facility] Work Phone: LA ESV SP 4CH (MOD) 53 mL [facility] Work Phone: LV EDV BP 180 mL [facility] Work Phone: LV EDV SP 2CH 190 mL [facility] Work Phone: LV EDV SP 4CH 166 mL [facility] Work Phone: LV ESV BP 69 mL [facility] Work Phone: LV ESV SP 2CH 65 mL [facility] Work Phone: LV ESV SP 4CH 70 mL [facility] Work Phone: LV mass 254.73 g [facility] Work Phone: LV Mass Index 122.5 g/m2 [facility] Work Phone: LV RWT 0.42 [facility] Work Phone: LV stroke volume BP (ml) 111 mL [facility] Work Phone: LV stroke volume index BP 53.37 mL/m2 [facility] Work Phone: LVIDD 5.53 cm [facility] Work Phone: LVIDS 3.97 cm [facility] Work Phone: LVOT area 4.15 cm2 [facility] Work Phone: LVOT diameter 2.30 cm [facility] Work Phone: LVOT peak meliton 1.06 m/s [facility] Work Phone: LVOT peak VTI 26.61 cm [facility] Work Phone: LVOT stroke volume [address] [facility] Work Phone: LVOT stroke volume index 53.13 ml/m2 [facility] Work Phone: Mr max meliton 4.21 m/s [facility] Work Phone: MR VTI 134.50 cm [facility] Work Phone: MV mean gradient 3 mmHg [facility] Work Phone: [phone] MV peak gradient 11 mmHg [facility] Work Phone: MV pk A meliton 0.52 m/s [facility] Work Phone: MV pk E meliton 1.39 m/s [facility] Work Phone: MV stenosis pressure 1/2 time 58.56 ms [facility] Work Phone: MV valve area by continuity eq 2.93 cm2 [facility] Work Phone: MV valve area p 1/2 method 3.76 cm2 [facility] Work Phone: MV VTI 37.70 cm [facility] Work Phone: MVA (continuity VTI) 2.92 cm [facility] Work Phone: [facility] AV VTI RATIO PRE STRESS 0.74 [facility] Work Phone: OSU ECHO LV BIPLANE SYSTOLIC VOLUME INDEX 33.17 mL/m2 [facility] Work Phone: O[facility] ECHO LV BP DIASTOLIC VOLUME INDEX 86.54 mL/m2 [facility] Work Phone: [facility] ECHO MR PEAK GRADIENT 70.94 mmHg [facility] Work Phone: PW 1.16 cm [facility] Work Phone: RA area 4CH (MOD) 14.50 cm2 [facility] Work Phone: RA vol index 4CH (MOD) 18.27 mL/m2 [facility] Work Phone: Right atrium volume 4 chamber method of disks 38 mL [facility] Work Phone: RV Area diastolic 33.20 cm2 [facility] Work Phone: RV Area systolic 21.30 cm2 [facility] Work Phone: RV basal diam 4.52 cm [facility] Work Phone: RV Fractional area change 35.8 % [facility] Work Phone: RV long diam 8.96 cm [facility] Work Phone: RV mid diam 3.70 cm [facility] Work Phone: RV S' 22.01 cm/s [facility] Work Phone: RVOT peak gradient 4 mmHg [facility] Work Phone: RVOT peak meliton 0.96 m/s [facility] Work Phone: RVOT peak VTI 20.86 cm [facility] Work Phone: Sinus 3.24 cm [facility] Work Phone: STJ 2.61 cm [facility] Work Phone: Stroke Volume 111 cm/mL [facility] Work Phone: Stroke volume index 53 [facility] Work Phone: TAPSE 2.19 cm [facility] Work Phone: [facility] Work Phone: Cardiac echo study Procedure on [...] echocardiography study was performed. Imaging system used: [employer]. Indications Indications for study: shortness of breath. [facility] Radiology Study observation (narrative) [facility] HEPATIC FUNCTION PANELon Albumin [Mass/Vol] 3.5 g/dL 3.5 - 5.0 g/dL [facility] ALP [Catalytic activity/Vol] 70 U/L 32 - 126 U/L [facility] ALT [Catalytic activity/Vol] 8 U/L Low 10 - 52 U/L [facility] AST [Catalytic activity/Vol] 20 U/L 10 - 39 U/L [facility] Bilirubin [Mass/Vol] 1.7 mg/dL [facility] Bilirubin.direct [Mass/Vol] 0.4 mg/dL High NINF - 0.3 mg/dL [facility] Protein [Mass/Vol] 6.0 g/dL Low 6.4 - 8.3 g/dL [facility] Albumin [Mass/Vol] 3.5 g/dL Normal 3.5-5.0 [facility] Comment on above: Performed By: #### C HM7, HFP, MGO, TSHQR ####[facility] (DEFAULT)[address] [address] ALP [Catalytic activity/Vol] 70 U/L Normal 32-126 [facility] Comment on above: Performed By: #### C HM7, HFP, MGO, TSHQR ####[facility] (DEFAULT)[address] [place] [address] ALT [Catalytic activity/Vol] 8 U/L Low 10-52 [facility] Comment on above: Performed By: #### C HM7, HFP, MGO, TSHQR ####[facility] (DEFAULT)[address] [place] [address] AST [Catalytic activity/Vol] 20 U/L Normal 10-39 [facility] Comment on above: Performed By: #### C HM7, HFP, MGO, TSHQR ####[facility] (DEFAULT)[address] [place] [address] Bilirubin [Mass/Vol] 1.7 mg/dL High <1.5 [facility] Comment on above: Performed By: #### C HM7, HFP, MGO, TSHQR ####[facility] (DEFAULT)[address] [place] [address] Bilirubin.indirect [Mass/Vol] 0.4 mg/dL High <0.3 [facility] Comment on above: Performed By: #### C HM7, HFP, MGO, TSHQR ####[facility] (DEFAULT)[address] [facility] [place] [address] Protein [Mass/Vol] 6.0 g/dL Low 6.4-8.3 [facility] Comment on above: Performed By: #### C HM7, HFP, MGO, TSHQR ####[facility] (DEFAULT)[address] [facility] [place] [address] MAGNESIUMon 01-18-2024 Magnesium [Mass/Vol] 1.5 mg/dL Low 1.6 - 2 .6 mg/dL [facility] Magnesium [Mass/Vol] 1.5 mg/dL Low 1.6-2.6 [facility] Comment on above: Performed By: #### C HM7, HFP, MGO, TSHQR ####[facility] (DEFAULT)[address] [facility] [place] [address] No Panel Informationon 01-18 Interpretation and review of laboratory results Abnormal [facility] PT,INR,PTTon 01-18-2024 aPTT Coag (PPP) [Time] 30.0 s [facility] INR Coag (Bld) [Relative time] 1.1 {INR} 0.9 - 1.1 [facility] Interpretation and review of laboratory results Abnormal [facility] PT Coag (PPP) [Time] 14.5 s High [facility] aPTT Coag (Bld) [Time] 30.0 s Normal 24.0-34.3 [facility] Comment on above: Performed By: #### P TPTT ####[facility] (DEFAULT)[address] [place] [address] INR Coag (PPP) [Relative time] 1.1 {INR} Normal 0.9-1.1 [facility] Comment on above: Performed By: #### P TPTT ####[facility] (DEFAULT)[address] [place] [address] PT Coag (PPP) [Time] 14.5 s High 11.9-14.2 [facility] Comment on above: Performed By: #### P TPTT ####[facility] (DEFAULT)[address] [place] [address] TSH W/FT4 REFLEXon 4 Interpretation and review of laboratory results Normal [facility] TSH Qn 2.660 m[IU]/L [facility] TSH 2.660 uIU/mL Normal 0.550-4.780 [facility] Comment on above: Performed By: #### C HM7, HFP, MGO, TSHQR ####[facility] (DEFAULT)[address] [place] [address] AFP TUMOR MARKERon 4 AFP Tumor Marker <2.2 Normal <8.1 [facility] Comment on above: Result Comment: This test was performed on the Echometrix IM Immunoassay platform by [employer] which is a two-site sandwich chemiluminescent immunoassay. It is important to note that assays using different manufacturers and/or methods may not be comparable. Performed By: #### A FPTMR ####[facility] (DEFAULT)[address] [place] [address] DARYL AURIS SCREEN BY PCRO rdered By: Mynor Alejandro on 01-17-2024 Daryl auris Screen by PCR Not detected Not Detected [facility] Interpretation and review of laboratory results Normal [facility] This test was perfor med using a real-time PCR assay. This test was developed, and its performance characteristics determined by [facility] at [facility]. It has not been cleared or approved by the FDA. The laboratory is regulated under CLIA as qualified to perform high-complexity testing. This test is used for clinical purposes. It should not be regarded as investigational or for research. [facility] CBC,PLATELETSon 01-17-2024 Erythrocyte distribution width (RBC) [Ratio] 14.0 % 10.9 - 14.3 % [facility] Hematocrit (Bld) [Volume fraction] 37.2 % Low 39.6 - 48.8 % [facility] Hemoglobin (Bld) [Mass/Vol] 12.0 g/dL Low 13.4 - 16.8 g/dL [facility] Interpretation and review of laboratory results Abnormal [facility] MCH (RBC) [Entitic mass] 27.9 pg 26.1 - 33.3 pg [facility] MCHC (RBC) [Mass/Vol] 32.3 g/dL 31.9 - 36.5 g/dL [facility] MCV (RBC) [Entitic vol] 86.5 fL 79.0 - 94.5 fL [facility] Platelet mean volume (Bld) [Entitic vol] 10.5 fL 8.7 - 12.3 fL [facility] Platelets (Bld) [#/Vol] 159 10*3/uL 146 - 337 K/uL [facility] RBC (Bld) [#/Vol] 4.30 10*6/uL Low [facility] WBC (Bld) [#/Vol] 3.69 10*3/uL Low 3.73 - 10. 10 K/uL [facility] Hematocrit (Bld) [Volume fraction] 37.2 % Low 39.6-48.8 [facility] Comment on above: Performed By: #### H EMOGC ####[facility] (DEFAULT)[address] [facility] [place] [address] Hemoglobin (Bld) [Mass/Vol] 12.0 g/dL Low 13.4-16.8 [facility] Comment on above: Performed By: #### H EMOGC ####[facility] (DEFAULT)[address] [facility] [place] [address] MCV (RBC) [Entitic vol] 86.5 fL Normal 79.0-94.5 [facility] Comment on above: Performed By: #### H EMOGC ####[facility] (DEFAULT)[address] [place] [address] Mean Cell Hgb 27.9 pg Normal 26.1-33.3 [facility] Comment on above: Performed By: #### H EMOGC ####[facility] (DEFAULT)[address] [facility] [place] [address] Mean Cell Hgb Conc 32.3 g/dL Normal 31.9-36.5 [facility] Comment on above: Performed By: #### H EMOGC ####[facility] (DEFAULT)[address] [facility] [place] [address] Platelet mean volume (Bld) [Entitic vol] 10.5 fL Normal 8.7-12.3 [facility] Comment on above: Performed By: #### H EMOGC ####[facility] (DEFAULT)[address] [place] [address] Platelets (Bld) [#/Vol] 159 10*3/uL Normal 146-337 [facility] Comment on above: Performed By: #### H [facility] [place] ####[facility] (DEFAULT)[address] [place] [address] RBC (Bld) [#/Vol] 4.30 10*6/uL Low 4.38-5.83 [facility] Comment on above: Performed By: #### H [facility] [place] ####[facility] (DEFAULT)[address] [place] [address] RBC Distribution 14.0 % Normal 10.9-14.3 [facility] Comment on above: Performed By: #### H [facility] [place] ####[facility] (DEFAULT)[address] [place] [address] WBC (Bld) [#/Vol] 3.69 10*3/uL Low 3.73-10.10 [facility] Comment on above: Performed By: #### H [facility] [place] ####[facility] (DEFAULT)[address] [place] [id number] CHEM 7 (LYTES,BUN,CREA,GLUC) on 01-17-2024 Anion gap [Moles/Vol] 13 mmol/L 7 - 17 mmol/L [facility] Chloride [Moles/Vol] 109 mmol/L High 98 - 10 8 mmol/L [facility] CO2 [Moles/Vol] 21 mmol/L 21 - 31 mmol/L [facility] Creatinine [Mass/Vol] 1.04 mg/dL 0.70 - 1.30 mg/dL [facility] eGFR, CKD-EPI, Male 86 - PINF [facility] Comment on above: Reported eGFR is bas ed on the CKD-EPI 2020 equation using creatinine, age, and sex. Glucose [Mass/Vol] 82 mg/dL 70 - 99 mg/dL [facility] Osmolality Calc [Osmolality] 292 [facility] Potassium [Moles/Vol] 4.4 mmol/L 3.5 - 5.0 mmol/L [facility] Sodium [Moles/Vol] 139 mmol/L 135 - 145 mmol/L [facility] Urea nitrogen [Mass/Vol] 17 mg/dL 7 - 25 mg/dL [facility] Urea nitrogen/Creatinine [Mass ratio] 16 mg/mg [facility] Anion gap [Moles/Vol] 13 mmol/L Normal 7-17 [facility] Comment on above: Performed By: #### C HM7, HFP, MGO ####[facility] (DEFAULT)[address] [place] [address] Chloride [Moles/Vol] 109 mmol/L High 98-108 [facility] Comment on above: Performed By: #### C HM7, HFP, MGO ####[facility] (DEFAULT)[address] [facility] [place] [address] CO2 [Moles/Vol] 21 mmol/L Normal 21-31 [facility] Comment on above: Performed By: #### C HM7, HFP, MGO ####[facility] (DEFAULT)[address] [facility] [place] [address] Creatinine [Mass/Vol] 1.04 mg/dL Normal 0.70-1.30 [facility] Comment on above: Performed By: #### C HM7, HFP, MGO ####[facility] (DEFAULT)[address] [facility] [place] [address] GFR/1.73 sq M.predicted among non-blacks MDRD (S/P/Bld) [Vol rate/Area] 86 mL/min/{1.73_m2} Normal >=60 [facility] Comment on above: Result Comment: Repo rted eGFR is based on the CKD-EPI 2020 equation using creatinine, age, and sex. Performed By: #### C HM7, HFP, MGO ####[facility] (DEFAULT)[address] [facility] [place] [address] Glucose [Mass/Vol] 82 mg/dL Normal 70-99 [facility] Comment on above: Performed By: #### C HM7, HFP, MGO ####[facility] (DEFAULT)[address] [place] [address] Osmolality [Osmolality] 292 mosm/kg Normal 278-305 [facility] Comment on above: Performed By: #### C HM7, HFP, MGO ####[facility] (DEFAULT)[address] [place] [address] Potassium [Moles/Vol] 4.4 mmol/L Normal 3.5-5.0 [facility] Comment on above: Performed By: #### Chinedu HM7, HFP, MGO ####[facility] (DEFAULT)[address] [place] [address] Sodium [Moles/Vol] 139 mmol/L Normal 135-145 [facility] Comment on above: Performed By: #### C HM7, HFP, MGO ####[facility] (DEFAULT)[address] [place] [address] Urea nitrogen [Mass/Vol] 17 mg/dL Normal 7-25 [facility] Comment on above: Performed By: #### Chinedu HM7, HFP, MGO ####[facility] (DEFAULT)[address] [place] [address] Urea nitrogen/Creatinine [Mass ratio] 16 mg/mg Normal [facility] Comment on above: Performed By: #### C HM7, HFP, MGO ####[facility] (DEFAULT)[address] [place] [address] CT ABDOMEN/PELVIS WITHOUT CO NTRASTon 01-17-2024 CT ABDOMEN/PELVIS WITHOUT CONTRAST Normal [facility] CT Abdomen and Pelvis WO con [...] unremarkable. Kidneys: Severe atrophy of the bilateral [place] kidney is without hydronephrosis. Right lower quadrant [...] unremarkable. Kidneys: Severe atrophy of the bilateral [place] kidney is without hydronephrosis. Right lower quadrant [...] [facility] Radiology Study observation (narrative) [facility] HEPATIC FUNCTION PANELon Albumin [Mass/Vol] 3.5 g/dL 3.5 - 5.0 g/dL [facility] ALP [Catalytic activity/Vol] 73 U/L 32 - 126 U/L [facility] ALT [Catalytic activity/Vol] 7 U/L Low 10 - 52 U/L [facility] AST [Catalytic activity/Vol] 25 U/L 10 - 39 U/L [facility] Bilirubin [Mass/Vol] 1.8 mg/dL High NINF - 1.5 mg/dL [facility] Bilirubin.direct [Mass/Vol] 0.3 mg/dL High NINF - 0.3 mg/dL [facility] Protein [Mass/Vol] 6.0 g/dL Low 6.4 - 8.3 g/dL [facility] Albumin [Mass/Vol] 3.5 g/dL Normal 3.5-5.0 [facility] Comment on above: Performed By: #### C HM7, HFP, MGO ####[facility] (DEFAULT)[address] [place] [address] ALP [Catalytic activity/Vol] 73 U/L Normal 32-126 [facility] Comment on above: Performed By: #### C HM7, HFP, MGO ####[facility] (DEFAULT)[address] [place] [address] ALT [Catalytic activity/Vol] 7 U/L Low 10-52 [facility] Comment on above: Performed By: #### Chinedu HM7, HFP, MGO ####[facility] (DEFAULT)[address] [place] [address] AST [Catalytic activity/Vol] 25 U/L Normal 10-39 [facility] Comment on above: Performed By: #### C HM7, HFP, MGO ####[facility] (DEFAULT)[address] [place] [address] Bilirubin [Mass/Vol] 1.8 mg/dL High <1.5 [facility] Comment on above: Performed By: #### C HM7, HFP, MGO ####[facility] (DEFAULT)[address] [place] [address] Bilirubin.indirect [Mass/Vol] 0.3 mg/dL High <0.3 [facility] Comment on above: Performed By: #### Chinedu HM7, HFP, MGO ####[facility] (DEFAULT)[address] [place] [address] Protein [Mass/Vol] 6.0 g/dL Low 6.4-8.3 [facility] Comment on above: Performed By: #### C HM7, HFP, MGO ####[facility] (DEFAULT)[address] [place] [address] HISTOPLASMA AND BLASTOMYCES ANTIGEN, ENZYME IMMUNOASSAY, SERMon 01-17-2024 Histoplasma/Blastomy antonia Ag Result Not detected Normal Not Detected [facility] Comment on above: Result Comment: No a ntigen from Histoplasma or Blastomyces detected. Falsenegative results may occur depending on extent of disease,and/or site of infection. Repeat testing on a new specimenif clinically indicated. Performed By: #### H IBAG ####[facility] (DEFAULT)[address] [place] [address] Histoplasma/Blastomy antonia Ag Value Not detected Normal [facility] Comment on above: Result Comment: ---- ADDITIONAL INFORMATION This test was developed and its performance characteristicsdetermined by [facility] in a manner consistent with CLIArequirements. This test has not been cleared or approved bythe U.S. Food and Drug Administration.Test Performed by:[address] [address] Director: Rosendo Bose M.D. Ph.D.; CLIA# [id number] Performed By: #### H CORAL ####[facility] (DEFAULT)[address] [place] [address] MAGNESIUMon 01-17-2024 Interpretation and review of laboratory results Normal [facility] Magnesium [Mass/Vol] 1.7 mg/dL 1.6 - 2 .6 mg/dL [facility] Magnesium [Mass/Vol] 1.7 mg/dL Normal 1.6-2.6 [facility] Comment on above: Performed By: #### C HM7, HFP, MGO ####[facility] (DEFAULT)[address] [place] [address] No Panel Informationon 01-17 Interpretation and review of laboratory results Abnormal [facility] PT,INR,PTTon 01-17-2024 aPTT Coag (PPP) [Time] 29.9 s [facility] INR Coag (Bld) [Relative time] 1.1 {INR} 0.9 - 1.1 [facility] Interpretation and review of laboratory results Abnormal [facility] PT Coag (PPP) [Time] 14.5 s High [facility] aPTT Coag (Bld) [Time] 29.9 s Normal 24.0-34.3 [facility] Comment on above: Performed By: #### P TPTT ####[facility] (DEFAULT)[address] [place] [address] INR Coag (PPP) [Relative time] 1.1 {INR} Normal 0.9-1.1 [facility] Comment on above: Performed By: #### P TPTT ####[facility] (DEFAULT)[address] [place] [address] PT Coag (PPP) [Time] 14.5 s High 11.9-14.2 [facility] Comment on above: Performed By: #### P TPTT ####[facility] (DEFAULT)[address] [place] [address] B-TYPE NATRIURETIC PEPTIDE ( BRAIN)on 01-16-2024 Interpretation and review of laboratory results Abnormal [facility] Natriuretic peptide B (Bld) [Mass/Vol] 212 pg/mL High 0 - 100 pg/mL [facility] Natriuretic peptide B (Bld) [Mass/Vol] 212 pg/mL High 0-100 [facility] Comment on above: Performed By: #### B ORGAN GRINDER ####[facility] (DEFAULT)[address] [place] [address] CALCIUMon 01-16-2024 Calcium [Mass/Vol] 8.5 mg/dL Low 8.6 - 10. 5 mg/dL [facility] Calcium [Mass/Vol] 8.5 mg/dL Low 8.6-10.5 [facility] Comment on above: Performed By: #### C A, CHM7, IPB, MGO, HFP ####[facility] (DEFAULT)[address] [place] [address] DARYL AURIS SCREEN BY PCRo n 01-16-2024 Daryl auris Screen by PCR Not detected Normal Not Detected [facility] Comment on above: Order Comment: This test was performed using a real-time PCR assay. This test was developed, and its performance characteristics determined by [facility]. It has not been cleared or approved by the FDA. The laboratory is regulated under CLIA as qualified to perform high-complexity testing. This test is used for clinical purposes. It should not be regarded as investigational or for research. Performed By: #### C ANDIDA AURIS SCREEN BY PCR ####[facility] (DEFAULT)[address] [place] [address] CBC AND ELECTRONIC DIFFon Basophils (Bld) [#/Vol] K/uL 0.00 - 0.09 K/uL [facility] Basophils/100 WBC (Bld) 0.6 % [facility] Differential cell count method Nom (Bld) Electronic Differential [facility] Eosinophils (Bld) [#/Vol] 0.09 10*3/uL 0.00 - 0.48 K/uL [facility] Eosinophils/100 WBC (Bld) 2.5 % [facility] Erythrocyte distribution width (RBC) [Ratio] 14.0 % 10.9 - 14.3 % [facility] Hematocrit (Bld) [Volume fraction] 37.4 % Low 39.6 - 48.8 % [facility] Hemoglobin (Bld) [Mass/Vol] 12.1 g/dL Low 13.4 - 16.8 g/dL [facility] Immature granulocytes (Bld) [#/Vol] K/uL NINF - 0.07 K/uL [facility] Immature granulocytes/100 WBC (Bld) 0.3 % [facility] Interpretation and review of laboratory results Abnormal [facility] Lymphocytes (Bld) [#/Vol] 1.16 10*3/uL 0.83 - 3.57 K/uL [facility] Lymphocytes/100 WBC (Bld) 32.0 % [facility] MCH (RBC) [Entitic mass] 28.4 pg 26.1 - 33.3 pg [facility] MCHC (RBC) [Mass/Vol] 32.4 g/dL 31.9 - 36.5 g/dL [facility] MCV (RBC) [Entitic vol] 87.8 fL 79.0 - 94.5 fL [facility] Monocytes (Bld) [#/Vol] 0.43 10*3/uL 0.24 - 0.93 K/uL [facility] Monocytes/100 WBC (Bld) 11.9 % [facility] Neutrophils (Bld) [#/Vol] 1.91 10*3/uL 1.57 - 6.19 K/uL [facility] Nucleated RBC/100 WBC (Bld) [Ratio] 0.0 % NINF [facility] Platelet mean volume (Bld) [Entitic vol] 10.1 fL 8.7 - 12.3 fL [facility] Platelets (Bld) [#/Vol] 155 10*3/uL 146 - 337 K/uL [facility] RBC (Bld) [#/Vol] 4.26 10*6/uL Low [facility] Segmented neutrophils/100 WBC (Bld) 52.7 % [facility] WBC (Bld) [#/Vol] 3.62 10*3/uL Low 3.73 - 10. 10 K/uL [facility] Abs Baso Auto < Normal 0.00-0.09 [facility] Comment on above: Performed By: #### L AB980 ####[facility] (DEFAULT)[address] [facility] [place] [address] Basophils/100 WBC (Bld) 0.6 % Normal [facility] Comment on above: Performed By: #### L AB980 ####[facility] (DEFAULT)[address] [place] [address] DIFF STATUS Electronic Differential Normal [facility] Comment on above: Performed By: #### L AB980 ####[facility] (DEFAULT)[address] [facility] [place] [address] Eosinophils (Bld) [#/Vol] 0.09 10*3/uL Normal 0.00-0.48 [facility] Comment on above: Performed By: #### L AB980 ####[facility] (DEFAULT)[address] [place] [address] Eosinophils/100 WBC (Bld) 2.5 % Normal [facility] Comment on above: Performed By: #### L AB980 ####[facility] (DEFAULT)[address] [facility] [place] [address] Hematocrit (Bld) [Volume fraction] 37.4 % Low 39.6-48.8 [facility] Comment on above: Performed By: #### L AB980 ####[facility] (DEFAULT)[address] [facility] [place] [address] Hemoglobin (Bld) [Mass/Vol] 12.1 g/dL Low 13.4-16.8 [facility] Comment on above: Performed By: #### L AB980 ####[facility] (DEFAULT)[address] [facility] [place] [address] Immature Grans % 0.3 % Normal [facility] Comment on above: Performed By: #### L AB980 ####[facility] (DEFAULT)[address] [place] [address], [place] [address] Immature Grans Absolute < Normal <=0.07 [facility] Comment on above: Performed By: #### L AB980 ####[facility] (DEFAULT)[address] [facility] [place] [address] Lymphocytes (Bld) [#/Vol] 1.16 10*3/uL Normal 0.83-3.57 [facility] Comment on above: Performed By: #### L AB980 ####[facility] (DEFAULT)[address] [facility] [place] [address] Lymphocytes/100 WBC (Bld) 32.0 % Normal [facility] Comment on above: Performed By: #### L AB980 ####[facility] (DEFAULT)[address] [place] [address] MCV (RBC) [Entitic vol] 87.8 fL Normal 79.0-94.5 [facility] Comment on above: Performed By: #### L AB980 ####[facility] (DEFAULT)[address] [facility] [place] [address] Mean Cell Hgb 28.4 pg Normal 26.1-33.3 [facility] Comment on above: Performed By: #### L AB980 ####[facility] (DEFAULT)[address] [facility] [place] [address] Mean Cell Hgb Conc 32.4 g/dL Normal 31.9-36.5 [facility] Comment on above: Performed By: #### L AB980 ####[facility] (DEFAULT)[address] [facility] [place] [address] Monocytes (Bld) [#/Vol] 0.43 10*3/uL Normal 0.24-0.93 [facility] Comment on above: Performed By: #### L AB980 ####[facility] (DEFAULT)[address] [facility] [place] [address] Monocytes/100 WBC (Bld) 11.9 % Normal [facility] Comment on above: Performed By: #### L AB980 ####[facility] (DEFAULT)[address] [facility] [place] [address] Nucleated RBC 0.0 /100 WBC Normal <=0.2 [facility] Comment on above: Performed By: #### L AB980 ####[facility] (DEFAULT)[address] [facility] [place] [address] Platelet mean volume (Bld) [Entitic vol] 10.1 fL Normal 8.7-12.3 [facility] Comment on above: Performed By: #### L AB980 ####[facility] (DEFAULT)[address] [facility] [place] [address] Platelets (Bld) [#/Vol] 155 10*3/uL Normal 146-337 [facility] Comment on above: Performed By: #### L AB980 ####[facility] (DEFAULT)[address] [facility] [place] [address] RBC (Bld) [#/Vol] 4.26 10*6/uL Low 4.38-5.83 [facility] Comment on above: Performed By: #### L AB980 ####[facility] (DEFAULT)[address] [facility] [place] [address] RBC Distribution 14.0 % Normal 10.9-14.3 [facility] Comment on above: Performed By: #### L AB980 ####[facility] (DEFAULT)[address] [facility] [place] [address] Segs + Bands Auto 52.7 % Normal [facility] Comment on above: Performed By: #### L AB980 ####[facility] (DEFAULT)[address] [facility] [place] [address] Segs + Bands,Absolute Auto 1.91 K/uL Normal 1.57-6.19 [facility] Comment on above: Performed By: #### L AB980 ####[facility] (DEFAULT)[address] [facility] [place] [address] WBC (Bld) [#/Vol] 3.62 10*3/uL Low 3.73-10.10 [facility] Comment on above: Performed By: #### L AB980 ####[facility] (DEFAULT)[address] [place] [address] CHEM 7 (LYTES,BUN,CREA,GLUC) on 01-16-2024 Anion gap [Moles/Vol] 11 mmol/L 7 - 17 mmol/L [facility] Chloride [Moles/Vol] 108 mmol/L 98 - 10 8 mmol/L [facility] CO2 [Moles/Vol] 24 mmol/L 21 - 31 mmol/L [facility] Creatinine [Mass/Vol] 1.04 mg/dL 0.70 - 1.30 mg/dL [facility] eGFR, CKD-EPI, Male 86 - PINF [facility] Comment on above: Reported eGFR is bas ed on the CKD-EPI 2020 equation using creatinine, age, and sex. Glucose [Mass/Vol] 95 mg/dL 70 - 99 mg/dL [facility] Osmolality Calc [Osmolality] 293 [facility] Potassium [Moles/Vol] 4.0 mmol/L 3.5 - 5.0 mmol/L [facility] Sodium [Moles/Vol] 139 mmol/L 135 - 145 mmol/L [facility] Urea nitrogen [Mass/Vol] 19 mg/dL 7 - 25 mg/dL [facility] Urea nitrogen/Creatinine [Mass ratio] 18 mg/mg [facility] Anion gap [Moles/Vol] 11 mmol/L Normal 7-17 [facility] Comment on above: Performed By: #### Chinedu Feliz CHM7, IPB, MGO, HFP ####[facility] (DEFAULT)[address] [place] [address] Chloride [Moles/Vol] 108 mmol/L Normal 98-108 [facility] Comment on above: Performed By: #### Chinedu Feliz CHM7, IPB, MGO, HFP ####[facility] (DEFAULT)[address] [facility] [place] [address] CO2 [Moles/Vol] 24 mmol/L Normal 21-31 [facility] Comment on above: Performed By: #### Chinedu Feliz, CHM7, IPB, MGO, HFP ####[facility] (DEFAULT)[address] [place] [address] Creatinine [Mass/Vol] 1.04 mg/dL Normal 0.70-1.30 [facility] Comment on above: Performed By: #### Chinedu Feliz, CHM7, IPB, MGO, HFP ####[facility] (DEFAULT)[address] [place] [address] GFR/1.73 sq M.predicted among non-blacks MDRD (S/P/Bld) [Vol rate/Area] 86 mL/min/{1.73_m2} Normal >=60 [facility] Comment on above: Result Comment: Repo rted eGFR is based on the CKD-EPI 2020 equation using creatinine, age, and sex. Performed By: #### Chinedu Feliz, CHM7, IPB, MGO, HFP ####[facility] (DEFAULT)[address] [place] [address] Glucose [Mass/Vol] 95 mg/dL Normal 70-99 [facility] Comment on above: Performed By: #### Chinedu Feliz, CHM7, IPB, MGO, HFP ####[facility] (DEFAULT)[address] [place] [address] Osmolality [Osmolality] 293 mosm/kg Normal 278-305 [facility] Comment on above: Performed By: #### Chinedu Feliz, CHM7, IPB, MGO, HFP ####[facility] (DEFAULT)[address] [place] [address] Potassium [Moles/Vol] 4.0 mmol/L Normal 3.5-5.0 [facility] Comment on above: Performed By: #### Chinedu Feliz, CHM7, IPB, MGO, HFP ####[facility] (DEFAULT)[address] [place] [address] Sodium [Moles/Vol] 139 mmol/L Normal 135-145 [facility] Comment on above: Performed By: #### Chinedu Feliz, CHM7, IPB, MGO, HFP ####[facility] (DEFAULT)[address] [facility] [place] [address] Urea nitrogen [Mass/Vol] 19 mg/dL Normal 7-25 [facility] Comment on above: Performed By: #### C A, CHM7, IPB, MGO, HFP ####[facility] (DEFAULT)[address] [facility] [place] [address] Urea nitrogen/Creatinine [Mass ratio] 18 mg/mg Normal [facility] Comment on above: Performed By: #### C A, CHM7, IPB, MGO, HFP ####[facility] (DEFAULT)[address] [place] [address] D-DIMER,QUANTITATIVEOrdered By: Shaji Kelly on 01-16-2024 Fibrin D-dimer FEU (PPP) [Mass/Vol] 0.67 High NINF [facility] Comment on above: The D-Dimer assay is intended for use in conjuction with a clinical pretest probability (PTP) assessment model to exclude pulmonary embolism (PE) and as an aid in the diagnosis of Deep Vein Thrombosis (DVT) in outpatients suspected of PE or DVT. For the assay in use at [facility] ([facility]), a cutoff of <0.50 mcg/mL has a Negative Predictive Value of 99.7% for exclusion of DVT in low and moderate PTP patients. Interpretation and review of laboratory results Abnormal [facility] D-DIMER,QUANTITATIVEon 01-16 D-Dimer, High Sensitivity 0.67 mcg/mL FEU High <0.50 [facility] Comment on above: Result Comment: The D-Dimer assay is intended for use in conjuction with a clinical pretest probability (PTP) assessment model to exclude pulmonary embolism (PE) and as an aid in the diagnosis of Deep Vein Thrombosis (DVT) in outpatients suspected of PE or DVT. For the assay in use at [facility] ([facility]), a cutoff of <0.50 mcg/mL has a Negative Predictive Value of 99.7% for exclusion of DVT in low and moderate PTP patients. Performed By: #### P TPTT, HSDDI ####[facility] (DEFAULT)[address] [place] [address] HEPATIC FUNCTION PANELon Albumin [Mass/Vol] 3.7 g/dL 3.5 - 5.0 g/dL [facility] ALP [Catalytic activity/Vol] 70 U/L 32 - 126 U/L [facility] ALT [Catalytic activity/Vol] 8 U/L Low 10 - 52 U/L [facility] AST [Catalytic activity/Vol] 21 U/L 10 - 39 U/L [facility] Bilirubin [Mass/Vol] 1.9 mg/dL High NINF - 1.5 mg/dL [facility] Bilirubin.direct [Mass/Vol] 0.4 mg/dL High NINF - 0.3 mg/dL [facility] Protein [Mass/Vol] 6.1 g/dL Low 6.4 - 8.3 g/dL [facility] Albumin [Mass/Vol] 3.7 g/dL Normal 3.5-5.0 [facility] Comment on above: Performed By: #### C A, CHM7, IPB, MGO, HFP ####[facility] (DEFAULT)[address] [place] [address] ALP [Catalytic activity/Vol] 70 U/L Normal 32-126 [facility] Comment on above: Performed By: #### C A, CHM7, IPB, MGO, HFP ####[facility] (DEFAULT)[address] [facility] [place] [address] ALT [Catalytic activity/Vol] 8 U/L Low 10-52 [facility] Comment on above: Performed By: #### C A, CHM7, IPB, MGO, HFP ####[facility] (DEFAULT)[address] [facility] [place] [address] AST [Catalytic activity/Vol] 21 U/L Normal 10-39 [facility] Comment on above: Performed By: #### C A, CHM7, IPB, MGO, HFP ####[facility] (DEFAULT)[address] [place] [address] Bilirubin [Mass/Vol] 1.9 mg/dL High <1.5 [facility] Comment on above: Performed By: #### C Tray, CHM7, IPB, MGO, HFP ####[facility] (DEFAULT)[address] [facility] [place] [address] Bilirubin.indirect [Mass/Vol] 0.4 mg/dL High <0.3 [facility] Comment on above: Performed By: #### C Tray, CHM7, IPB, MGO, HFP ####[facility] (DEFAULT)[address] [place] [address], [place] [address] Protein [Mass/Vol] 6.1 g/dL Low 6.4-8.3 [facility] Comment on above: Performed By: #### Chinedu Feliz, CHM7, IPB, MGO, HFP ####[facility] (DEFAULT)[address] [place] [address] MAGNESIUMon 01-16-2024 Magnesium [Mass/Vol] 1.7 mg/dL 1.6 - 2 .6 mg/dL [facility] Magnesium [Mass/Vol] 1.7 mg/dL Normal 1.6-2.6 [facility] Comment on above: Performed By: #### C Tray, CHM7, IPB, MGO, HFP ####[facility] (DEFAULT)[address] [place] [address] No Panel Informationon 01-16 Interpretation and review of laboratory results Abnormal [facility] Interpretation and review of laboratory results Normal [facility] PHOSPHATE, INORGANICon 01-16 Phosphate [Mass/Vol] 4.1 mg/dL 2.2 - 4 .6 mg/dL [facility] Phosphorous 4.1 mg/dL Normal 2.2-4.6 [facility] Comment on above: Performed By: #### C Tray, CHM7, IPB, MGO, HFP ####[facility] (DEFAULT)[address] [facility] [place] [address] PT,INR,PTTon 01-16-2024 aPTT Coag (PPP) [Time] 29.6 s [facility] INR Coag (Bld) [Relative time] 1.2 {INR} High 0.9 - 1.1 [facility] Interpretation and review of laboratory results Abnormal [facility] PT Coag (PPP) [Time] 14.9 s High [facility] aPTT Coag (Bld) [Time] 29.6 s Normal 24.0-34.3 [facility] Comment on above: Performed By: #### P TPTT, HSDDI ####[facility] (DEFAULT)[address] [facility] [place] [address] INR Coag (PPP) [Relative time] 1.2 {INR} High 0.9-1.1 [facility] Comment on above: Performed By: #### P TPTT, HSDDI ####[facility] (DEFAULT)[address] [facility] [place] [address] PT Coag (PPP) [Time] 14.9 s High 11.9-14.2 [facility] Comment on above: Performed By: #### P TPTT, HSDDI ####[facility] (DEFAULT)[address] [facility] [place] [address] TACROLIMUS LEVEL, TROUGH (DC E DRUG LEVEL)Ordered By: Jimy Castillo on 01-16-2024 Interpretation and review of laboratory results Normal [facility] Tacrolimus (Bld) [Mass/Vol] 5.7 ng/mL Bone Marrow Transplant: 4.0-12.0, Therapeutic: 5.0-15.0 [facility] Method performed is a chemiluminescent microparticle immunoasssay on the [employer] i2000. The range is based on experience at [facility] and users should be aware that target concentrations vary widely depending on concomitant therapy, time post-transplant, and desired degree of immunosuppression. [facility] TACROLIMUS LEVEL, TROUGH (DC E DRUG LEVEL)on 01-16-2024 Tacrolimus, Trough 5.7 ng/mL Normal Bone Susana ow Transplant: 4.0-12.0, Therapeutic: 5.0-15.0 [facility] Comment on above: Order Comment: Pleas e draw at specified interval PRIOR to dose. Do not hold dose to wait for level. Specimens batched twice per day, (M-F) and once per day weekendsMethod performed is a chemiluminescent microparticle immunoasssay on the [employer] i2000.The range is based on experience at [facility] and users should be aware that target concentrations vary widely depending on concomitant therapy, time post-transplant, and desired degree of immunosuppression. Performed By: #### T ACRO ####[facility] (DEFAULT)[address] [place], [place] [id number] US ABDOMEN LIVER DOPPLERon 0 01-16-2024 US ABDOMEN LIVER DOPPLER Normal [facility] US.doppler Abdominal vessels on 01-16-2024 IMPRESSION: [...] pleural effusion. Trace right upper quadrant ascites. [facility] Radiology Study observation (narrative) [facility] US.doppler Abdominal vessels Ordered By: Iona Duran on 01-16-2024 [facility] Work Phone: XR CHEST PA AND LATERAL 2 EWSon 01-16-2024 XR CHEST PA AND LATERAL 2 VIEWS Normal [facility] XR Chest PA and Lateralon IMPRESSION: [...] Normal IMPRESSION IMPRESSION: Moderate right pleural effusion. [facility] Radiology Study observation (narrative) [facility] XR Chest PA and LateralOrder ed By: Daisha Patterson on 01-16-2024 [facility] Work Phone: ALL CBC WITH AUTO DIFFon BASOPHILS ABSOLUTE AUTO 0.0 [facility] Basophils/100 WBC (Bld) 0.5 % 0.2 - 2.0 % [facility] Eosinophils/100 WBC (Bld) 2.8 % 0.9 - 7.0 % [facility] Erythrocyte distribution width (RBC) [Ratio] 13.8 % 11.0 - 15.0 % [facility] Hematocrit (Bld) [Volume fraction] 43.7 % 42.0 - 54.0 % [facility] Hemoglobin (Bld) [Mass/Vol] 14.0 g/dL 14.0 - 18.0 g/dL [facility] IMMATURE GRANULOCYTES ABS AUTO 0.01 [facility] Immature granulocytes/100 WBC (Bld) 0.3 % 0.0 - 0.5 % [facility] LYMPHOCYTES ABSOLUTE AUTO 1.5 [facility] Lymphocytes/100 WBC (Bld) 37.5 % 20.5 - 60.0 % [facility] MCH (RBC) [Entitic mass] 28.4 pg 25.9 - 34.0 pg [facility] MCHC (RBC) [Mass/Vol] 32.0 g/dL 29.9 - 35.2 g/dL [facility] MCV (RBC) [Entitic vol] 88.6 fL 80.0 - 94.0 fL [facility] MONOCYTES ABSOLUTE AUTO 0.5 [facility] Monocytes/100 WBC (Bld) 11.9 % 1.7 - 12.0 % [facility] NEUTROPHILS ABSOLUTE AUTO 1.9 [facility] Neutrophils/100 WBC (Bld) 47.0 % 43.0 - 75.0 % [facility] Platelet mean volume (Bld) [Entitic vol] 10.3 fL 9.5 - 13.5 [facility]L [facility] PLT 180 [facility] RBC 4.93 [facility] WBC 4.0 [facility] ALL CBC WITH AUTO DIFFon BASOPHILS ABSOLUTE AUTO 0.0 [facility] Basophils/100 WBC (Bld) 0.5 % 0.2 - 2.0 % [facility] Eosinophils/100 WBC (Bld) 2.6 % 0.9 - 7.0 % [facility] Erythrocyte distribution width (RBC) [Ratio] 13.5 % 11.0 - 15.0 % [facility] Hematocrit (Bld) [Volume fraction] 43.8 % 42.0 - 54.0 % [facility] Hemoglobin (Bld) [Mass/Vol] 14.0 g/dL 14.0 - 18.0 g/dL [facility] IMMATURE GRANULOCYTES ABS AUTO 0.00 [facility] Immature granulocytes/100 WBC (Bld) 0.0 % 0.0 - 0.5 % [facility] Interpretation and review of laboratory results Abnormal [facility] LYMPHOCYTES ABSOLUTE AUTO 1.8 [facility] Lymphocytes/100 WBC (Bld) 45.2 % 20.5 - 60.0 % [facility] MCH (RBC) [Entitic mass] 27.9 pg 25.9 - 34.0 pg [facility] MCHC (RBC) [Mass/Vol] 32.0 g/dL 29.9 - 35.2 g/dL [facility] MCV (RBC) [Entitic vol] 87.4 fL 80.0 - 94.0 fL [facility] MONOCYTES ABSOLUTE AUTO 0.4 [facility] Monocytes/100 WBC (Bld) 9.6 % 1.7 - 12.0 % [facility] NEUTROPHILS ABSOLUTE AUTO 1.6 [facility] Neutrophils/100 WBC (Bld) 42.1 % Low 43.0 - 75.0 % [facility] Platelet mean volume (Bld) [Entitic vol] 9.8 fL 9.5 - 13.5 fL [facility] TBH EO # 0.1 [facility] TB PLT 180 [facility] RBC 5.01 [facility] WBC 3.9 Low [facility] CHEM 7 (LYTES,BUN,CREA,GLUC) on 09-11-2023 Anion gap [Moles/Vol] 13 mmol/L 7 - 17 mmol/L [facility] Chloride [Moles/Vol] 111 mmol/L High 98 - 10 8 mmol/L [facility] CO2 [Moles/Vol] 20 mmol/L Low 21 - 31 mmol/L [facility] Creatinine [Mass/Vol] 1.13 mg/dL 0.70 - 1.30 mg/dL [facility] eGFR, CKD-EPI, Male 78 - PINF [facility] Glucose [Mass/Vol] 109 mg/dL High 70 - 99 mg/dL [facility] Interpretation and review of laboratory results Abnormal [facility]ality] [facility] Potassium [Moles/Vol] 4.3 mmol/L 3.5 - 5.0 mmol/L [facility] Sodium [Moles/Vol] 140 mmol/L 135 - 145 mmol/L [facility] Urea nitrogen [Mass/Vol] 16 mg/dL 7 - 25 mg/dL [facility] Urea nitrogen/Creatinine [Mass ratio] 14 mg/mg [facility] Anion gap [Moles/Vol] 13 mmol/L Normal 7-17 [facility] Comment on above: Performed By: #### TJ RAMÍREZ7 ####[facility] (DEFAULT)[address] [facility] [place] [address] Chloride [Moles/Vol] 111 mmol/L High 98-108 [facility] Comment on above: Performed By: #### TJ RAMÍREZ7 ####[facility] (DEFAULT)[address] [place] [address], [place] [address] CO2 [Moles/Vol] 20 mmol/L Low 21-31 [facility] Comment on above: Performed By: #### TJ RAMÍREZ7 ####[facility] (DEFAULT)[address] [facility] [place] [address] Creatinine [Mass/Vol] 1.13 mg/dL Normal 0.70-1.30 [facility] Comment on above: Performed By: #### TJ RAMÍREZ7 ####[facility] (DEFAULT)[address] [place] [address], [place] [address] GFR/1.73 sq M.predicted among non-blacks MDRD (S/P/Bld) [Vol rate/Area] 78 mL/min/{1.73_m2} Normal >=60 [facility] Comment on above: Result Comment: Repo rted eGFR is based on the CKD-EPI 2020 equation using creatinine, age, and sex. Performed By: #### TJ RAMÍREZ7 ####[facility] (DEFAULT)[address] [facility] [place] [address] Glucose [Mass/Vol] 109 mg/dL High 70-99 [facility] Comment on above: Performed By: #### TJ RAMÍREZ7 ####[facility] (DEFAULT)[address] [place] [address] Osmolality [Osmolality] 295 mosm/kg Normal 278-305 [facility] Comment on above: Performed By: #### TJ RAMÍREZ7 ####[facility] (DEFAULT)[address] [place] [address] Potassium [Moles/Vol] 4.3 mmol/L Normal 3.5-5.0 [facility] Comment on above: Performed By: #### TJ RAMÍREZ7 ####[facility] (DEFAULT)[address] [facility] [place] [address] Sodium [Moles/Vol] 140 mmol/L Normal 135-145 [facility] Comment on above: Performed By: #### Rod BOLOM CHM7 ####[facility] (DEFAULT)[address] [facility] [place] [address] Urea nitrogen [Mass/Vol] 16 mg/dL Normal 7-25 [facility] Comment on above: Performed By: #### Rod BLOOM CHM7 ####[facility] (DEFAULT)[address] [facility] [place] [address] Urea nitrogen/Creatinine [Mass ratio] 14 mg/mg Normal [facility] Comment on above: Performed By: #### Rod BLOOM CHM7 ####[facility] (DEFAULT)[address] [facility] [place] [address] GLUCOSE POCon 09-11-2023 Glucose [Mass/Vol] 108 mg/dL High 70 - 99 mg/dL [facility] Interpretation and review of laboratory results Abnormal [facility] POC Sample Type CAPBL [facility] Legionella sp identified Org specific cx Nom (Unsp spec)on 09-11-2023 Bacteria identified Cx Nom (Unsp spec) NO GROWTH DAY 7 OF 7 [facility] MAGNESIUMon 09-11-2023 Interpretation and review of laboratory results Normal [facility] Magnesium [Mass/Vol] 1.6 mg/dL 1.6 - 2 .6 mg/dL [facility] Magnesium [Mass/Vol] 1.6 mg/dL Normal 1.6-2.6 [facility] Comment on above: Performed By: #### M HELEN BLOOMM7 ####[facility] (DEFAULT)[address] [place] [address] No Panel Informationon 09-11 [facility] TACROLIMUS LEVEL, TROUGH (DC E DRUG LEVEL)on 09-11-2023 Interpretation and review of laboratory results Normal [facility] Tacrolimus (Bld) [Mass/Vol] 11.5 ng/mL [facility] Tacrolimus, Trough 11.5 ng/mL Normal Bone Susana ow Transplant: 4.0-12.0, Therapeutic: 5.0-15.0 [facility] Comment on above: Order Comment: Pleas e draw at specified interval PRIOR to dose. Do not hold dose to wait for level. Specimens batched twice per day, (M-F) and once per day weekendsMethod performed is a chemiluminescent microparticle immunoasssay on the [employer] i2000.The range is based on experience at [facility] and users should be aware that target concentrations vary widely depending on concomitant therapy, time post-transplant, and desired degree of immunosuppression. Performed By: #### T ACRO ####[facility] (DEFAULT)[address] [place] [address] CBC,PLATELETSon 09-10-2023 Erythrocyte distribution width (RBC) [Ratio] 13.9 % 10.9 - 14.3 % [facility] Hematocrit (Bld) [Volume fraction] 40.0 % 39.6 - 48.8 % [facility] Hemoglobin (Bld) [Mass/Vol] 12.7 g/dL Low 13.4 - 16.8 g/dL [facility] Interpretation and review of laboratory results Abnormal [facility] MCH (RBC) [Entitic mass] 27.3 pg 26.1 - 33.3 pg [facility] MCHC (RBC) [Mass/Vol] 31.8 g/dL Low 31.9 - 36.5 g/dL [facility] MCV (RBC) [Entitic vol] 86.0 fL 79.0 - 94.5 fL [facility] Platelet mean volume (Bld) [Entitic vol] 9.5 fL 8.7 - 12.3 fL [facility] Platelets (Bld) [#/Vol] 225 10*3/uL 146 - 337 K/uL [facility] RBC (Bld) [#/Vol] 4.65 10*6/uL [facility] WBC (Bld) [#/Vol] 6.52 10*3/uL 3.73 - 10. 10 K/uL [facility] Hematocrit (Bld) [Volume fraction] 40.0 % Normal 39.6-48.8 [facility] Comment on above: Performed By: #### H [facility] [place] [facility] ####[facility] (DEFAULT)[address] [place] [address] Hemoglobin (Bld) [Mass/Vol] 12.7 g/dL Low 13.4-16.8 [facility] Comment on above: Performed By: #### H [facility] [place] ####[facility] (DEFAULT)[address] [facility] [place] [address] MCV (RBC) [Entitic vol] 86.0 fL Normal 79.0-94.5 [facility] Comment on above: Performed By: #### H [facility] [place] ####[facility] (DEFAULT)[address] [facility] [place] [address] Mean Cell Hgb 27.3 pg Normal 26.1-33.3 [facility] Comment on above: Performed By: #### H EMO ####[facility] (DEFAULT)[address] [facility] [place] [address] Mean Cell Hgb Conc 31.8 g/dL Low 31.9-36.5 [facility] Comment on above: Performed By: #### H EMO ####[facility] (DEFAULT)[address] [facility] [place] [address] Platelet mean volume (Bld) [Entitic vol] 9.5 fL Normal 8.7-12.3 [facility] Comment on above: Performed By: #### H EMO ####[facility] (DEFAULT)[address] [facility] [place] [address] Platelets (Bld) [#/Vol] 225 10*3/uL Normal 146-337 [facility] Comment on above: Performed By: #### H [facility] [place] ####[facility] (DEFAULT)[address] [facility] [place] [address] RBC (Bld) [#/Vol] 4.65 10*6/uL Normal 4.38-5.83 [facility] Comment on above: Performed By: #### H [facility] [place] ####[facility] (DEFAULT)[address] [facility] [place] [address] RBC Distribution 13.9 % Normal 10.9-14.3 [facility] Comment on above: Performed By: #### H EMO ####[facility] (DEFAULT)[address] [facility] [place] [address] WBC (Bld) [#/Vol] 6.52 10*3/uL Normal 3.73-10.10 [facility] Comment on above: Performed By: #### H EMO ####[facility] (DEFAULT)[address] [facility] [place] [address] CHEM 7 (LYTES,BUN,CREA,GLUC) on 09-10-2023 Anion gap [Moles/Vol] 13 mmol/L 7 - 17 mmol/L [facility] Chloride [Moles/Vol] 111 mmol/L High 98 - 10 8 mmol/L [facility] CO2 [Moles/Vol] 20 mmol/L Low 21 - 31 mmol/L [facility] Creatinine [Mass/Vol] 1.27 mg/dL 0.70 - 1.30 mg/dL [facility] eGFR, CKD-EPI, Male 68 - PINF [facility] Glucose [Mass/Vol] 100 mg/dL High 70 - 99 mg/dL [facility] Osmolality Calc [Osmolality] 293 [facility] Potassium [Moles/Vol] 4.4 mmol/L 3.5 - 5.0 mmol/L [facility] Sodium [Moles/Vol] 140 mmol/L 135 - 145 mmol/L [facility] Urea nitrogen [Mass/Vol] 12 mg/dL 7 - 25 mg/dL [facility] Urea nitrogen/Creatinine [Mass ratio] 9 mg/mg [facility] Anion gap [Moles/Vol] 13 mmol/L Normal 7-17 [facility] Comment on above: Performed By: #### NATHANIEL RAMÍREZ, HFP ####[facility] (DEFAULT)[address] [place] [address] Chloride [Moles/Vol] 111 mmol/L High 98-108 [facility] Comment on above: Performed By: #### NATHANIEL RAMÍREZ, HFP ####[facility] (DEFAULT)[address] [place] [address] CO2 [Moles/Vol] 20 mmol/L Low 21-31 [facility] Comment on above: Performed By: #### NATHANIEL RAMÍREZ, HFP ####[facility] (DEFAULT)[address] [place] [address] Creatinine [Mass/Vol] 1.27 mg/dL Normal 0.70-1.30 [facility] Comment on above: Performed By: #### NATHANIEL RAMÍREZ, HFP ####[facility] (DEFAULT)[address] [place] [address] GFR/1.73 sq M.predicted among non-blacks MDRD (S/P/Bld) [Vol rate/Area] 68 mL/min/{1.73_m2} Normal >=60 [facility] Comment on above: Result Comment: Repo rted eGFR is based on the CKD-EPI 2020 equation using creatinine, age, and sex. Performed By: #### NATHANIEL RAMÍREZ, HFP ####[facility] (DEFAULT)[address] [place] [address] Glucose [Mass/Vol] 100 mg/dL High 70-99 [facility] Comment on above: Performed By: #### NATHANIEL RAMÍREZ, HFP ####[facility] (DEFAULT)[address] [place] [address] Osmolality [Osmolality] 293 mosm/kg Normal 278-305 [facility] Comment on above: Performed By: #### NATHANIEL RAMÍREZ, HFP ####[facility] (DEFAULT)[address] [place] [address] Potassium [Moles/Vol] 4.4 mmol/L Normal 3.5-5.0 [facility] Comment on above: Performed By: #### NATHANIEL RAMÍREZ, HFP ####[facility] (DEFAULT)[address] [place] [address] Sodium [Moles/Vol] 140 mmol/L Normal 135-145 [facility] Comment on above: Performed By: #### NATHANIEL RAMÍREZ, HFP ####[facility] (DEFAULT)[address] [place] [address] Urea nitrogen [Mass/Vol] 12 mg/dL Normal 7-25 [facility] Comment on above: Performed By: #### NATHANIEL RAMÍREZ, HFP ####[facility] (DEFAULT)[address] [place] [address] Urea nitrogen/Creatinine [Mass ratio] 9 mg/mg Normal [facility] Comment on above: Performed By: #### NATHANIEL RAMÍREZ, HFP ####[facility] (DEFAULT)[address] [place] [address] HEPATIC FUNCTION PANELon Albumin [Mass/Vol] 3.3 g/dL Low 3.5 - 5.0 g/dL [facility] ALP [Catalytic activity/Vol] 143 U/L High 32 - 126 U/L [facility] ALT [Catalytic activity/Vol] 28 U/L 10 - 52 U/L [facility] AST [Catalytic activity/Vol] 29 U/L 10 - 39 U/L [facility] Bilirubin [Mass/Vol] 0.9 mg/dL NINF - 1.5 mg/dL [facility] Bilirubin.direct [Mass/Vol] 0.2 mg/dL NINF - 0.3 mg/dL [facility] Protein [Mass/Vol] 6.8 g/dL 6.4 - 8.3 g/dL [facility] Albumin [Mass/Vol] 3.3 g/dL Low 3.5-5.0 [facility] Comment on above: Performed By: #### TJ RAMÍREZ7, HFP ####[facility] (DEFAULT)[address] [facility] [place] [address] ALP [Catalytic activity/Vol] 143 U/L High 32-126 [facility] Comment on above: Performed By: #### Rod BLOOM CHM7, HFP ####[facility] (DEFAULT)[address] [place] [address] ALT [Catalytic activity/Vol] 28 U/L Normal 10-52 [facility] Comment on above: Performed By: #### Rod BLOOM CHM7, HFP ####[facility] (DEFAULT)[address] [place] [address] AST [Catalytic activity/Vol] 29 U/L Normal 10-39 [facility] Comment on above: Performed By: #### Rod BLOOM CHM7, HFP ####[facility] (DEFAULT)[address] [place] [address] Bilirubin [Mass/Vol] 0.9 mg/dL Normal <1.5 [facility] Comment on above: Performed By: #### TJ RAMÍREZ7, HFP ####[facility] (DEFAULT)[address] [place] [address] Bilirubin.indirect [Mass/Vol] 0.2 mg/dL Normal <0.3 [facility] Comment on above: Performed By: #### NATHANIEL RAMÍREZ, HFP ####[facility] (DEFAULT)[address] [place] [address] Protein [Mass/Vol] 6.8 g/dL Normal 6.4-8.3 [facility] Comment on above: Performed By: #### TJ RAMÍREZ7, HFP ####[facility] (DEFAULT)[address] [place] [address] MAGNESIUMon 09-10-2023 Interpretation and review of laboratory results Normal [facility] Magnesium [Mass/Vol] 1.9 mg/dL 1.6 - 2 .6 mg/dL [facility] Magnesium [Mass/Vol] 1.9 mg/dL Normal 1.6-2.6 [facility] Comment on above: Performed By: #### NATHANIEL RAMÍREZ, HFP ####[facility] (DEFAULT)[address] [place] [address] No Panel Informationon 09-10 Interpretation and review of laboratory results Abnormal [facility] TACROLIMUS LEVEL, TROUGH (DC E DRUG LEVEL)Ordered By: Jimy Castillo on 09-10-2023 Interpretation and review of laboratory results Normal [facility] Tacrolimus (Bld) [Mass/Vol] 11.8 ng/mL [facility] TACROLIMUS LEVEL, TROUGH (DC E DRUG LEVEL)on 09-10-2023 Tacrolimus, Trough 11.8 ng/mL Normal Bone Susana ow Transplant: 4.0-12.0, Therapeutic: 5.0-15.0 [facility] Comment on above: Order Comment: Pleas e draw at specified interval PRIOR to dose. Do not hold dose to wait for level. Specimens batched twice per day, (M-F) and once per day weekendsMethod performed is a chemiluminescent microparticle immunoasssay on the [employer] i2000.The range is based on experience at [facility] and users should be aware that target concentrations vary widely depending on concomitant therapy, time post-transplant, and desired degree of immunosuppression. Performed By: #### T ACRO ####[facility] (DEFAULT)[address] [place] [address] CHEM 7 (LYTES,BUN,CREA,GLUC) on 09-09-2023 Anion gap [Moles/Vol] 14 mmol/L 7 - 17 mmol/L [facility] Chloride [Moles/Vol] 113 mmol/L High 98 - 10 8 mmol/L [facility] CO2 [Moles/Vol] 18 mmol/L Low 21 - 31 mmol/L [facility] Creatinine [Mass/Vol] 1.03 mg/dL 0.70 - 1.30 mg/dL [facility] eGFR, CKD-EPI, Male 87 - PINF [facility] Glucose [Mass/Vol] 106 mg/dL High 70 - 99 mg/dL [facility] Interpretation and review of laboratory results Abnormal [facility] Osmolality Calc [Osmolality] 294 [facility] Potassium [Moles/Vol] 4.0 mmol/L 3.5 - 5.0 mmol/L [facility] Sodium [Moles/Vol] 141 mmol/L 135 - 145 mmol/L [facility] Urea nitrogen [Mass/Vol] 10 mg/dL 7 - 25 mg/dL [facility] Urea nitrogen/Creatinine [Mass ratio] 10 mg/mg [facility] Anion gap [Moles/Vol] 14 mmol/L Normal 7-17 [facility] Comment on above: Performed By: #### M MERLE, IPBerlin, CHM7 ####[facility] (DEFAULT)[address] [place] [address] Chloride [Moles/Vol] 113 mmol/L High 98-108 [facility] Comment on above: Performed By: #### JO ANN RAMÍREZ CHM7 ####[facility] (DEFAULT)[address] [place] [address] CO2 [Moles/Vol] 18 mmol/L Low 21-31 [facility] Comment on above: Performed By: #### JO ANN RAMÍREZ CHM7 ####[facility] (DEFAULT)[address] [place] [address] Creatinine [Mass/Vol] 1.03 mg/dL Normal 0.70-1.30 [facility] Comment on above: Performed By: #### JO ANN RAMÍREZ CHM7 ####[facility] (DEFAULT)[address] [place] [address] GFR/1.73 sq M.predicted among non-blacks MDRD (S/P/Bld) [Vol rate/Area] 87 mL/min/{1.73_m2} Normal >=60 [facility] Comment on above: Result Comment: Repo rted eGFR is based on the CKD-EPI 2020 equation using creatinine, age, and sex. Performed By: #### JO ANN RAMÍREZ CHM7 ####[facility] (DEFAULT)[address] [place] [address] Glucose [Mass/Vol] 106 mg/dL High 70-99 [facility] Comment on above: Performed By: #### JO ANN RAMÍREZ CHM7 ####[facility] (DEFAULT)[address] [place] [address] Osmolality [Osmolality] 294 mosm/kg Normal 278-305 [facility] Comment on above: Performed By: #### JO ANN RAMÍREZ CHM7 ####[facility] (DEFAULT)[address] [place] [address] Potassium [Moles/Vol] 4.0 mmol/L Normal 3.5-5.0 [facility] Comment on above: Performed By: #### JO ANN RAMÍREZ CHM7 ####[facility] (DEFAULT)[address] [place] [address] Sodium [Moles/Vol] 141 mmol/L Normal 135-145 [facility] Comment on above: Performed By: #### JO ANN RAMÍREZ, CHM7 ####[facility] (DEFAULT)[address] [place] [address] Urea nitrogen [Mass/Vol] 10 mg/dL Normal 7-25 [facility] Comment on above: Performed By: #### JO ANN RAMÍREZ CHM7 ####[facility] (DEFAULT)[address] [place] [address] Urea nitrogen/Creatinine [Mass ratio] 10 mg/mg Normal [facility] Comment on above: Performed By: #### JO ANN RAMÍREZ CHM7 ####[facility] (DEFAULT)[address] [place] [address] MAGNESIUMon 09-09-2023 Magnesium [Mass/Vol] 1.6 mg/dL 1.6 - 2 .6 mg/dL [facility] Magnesium [Mass/Vol] 1.6 mg/dL Normal 1.6-2.6 [facility] Comment on above: Performed By: #### JO ANN RAMÍREZ, CHM7 ####[facility] (DEFAULT)[address] [place] [address] No Panel Informationon 09-09 Interpretation and review of laboratory results Normal [facility] PHOSPHATE, INORGANICon 09-09 Phosphate [Mass/Vol] 3.8 mg/dL 2.2 - 4 .6 mg/dL [facility] Phosphorous 3.8 mg/dL Normal 2.2-4.6 [facility] Comment on above: Performed By: #### JO ANN RAMÍREZ, CHM7 ####[facility] (DEFAULT)[address] [place] [address] TACROLIMUS LEVEL, TROUGH (DC E DRUG LEVEL)on 09-09-2023 Interpretation and review of laboratory results Normal [facility] Tacrolimus (Bld) [Mass/Vol] 9.2 ng/mL [facility] Tacrolimus, Trough 9.2 ng/mL Normal Bone Susana ow Transplant: 4.0-12.0, Therapeutic: 5.0-15.0 [facility] Comment on above: Order Comment: Pleas e draw at specified interval PRIOR to dose. Do not hold dose to wait for level. Specimens batched twice per day, (M-F) and once per day weekendsMethod performed is a chemiluminescent microparticle immunoasssay on the [employer] i2000.The range is based on experience at [facility] and users should be aware that target concentrations vary widely depending on concomitant therapy, time post-transplant, and desired degree of immunosuppression. Performed By: #### T ACRO ####[facility] (DEFAULT)[address] [place] [address] CBC,PLATELETSon 09-08-2023 Erythrocyte distribution width (RBC) [Ratio] 13.6 % 10.9 - 14.3 % [facility] Hematocrit (Bld) [Volume fraction] 36.1 % Low 39.6 - 48.8 % [facility] Hemoglobin (Bld) [Mass/Vol] 11.6 g/dL Low 13.4 - 16.8 g/dL [facility] Interpretation and review of laboratory results Abnormal [facility] MCH (RBC) [Entitic mass] 27.4 pg 26.1 - 33.3 pg [facility] MCHC (RBC) [Mass/Vol] 32.1 g/dL 31.9 - 36.5 g/dL [facility] MCV (RBC) [Entitic vol] 85.1 fL 79.0 - 94.5 fL [facility] Platelet mean volume (Bld) [Entitic vol] 9.5 fL 8.7 - 12.3 fL [facility] Platelets (Bld) [#/Vol] 182 10*3/uL 146 - 337 K/uL [facility] RBC (Bld) [#/Vol] 4.24 10*6/uL Low [facility] WBC (Bld) [#/Vol] 4.59 10*3/uL 3.73 - 10. 10 K/uL [facility] Hematocrit (Bld) [Volume fraction] 36.1 % Low 39.6-48.8 [facility] Comment on above: Performed By: #### H EMOGC ####[facility] (DEFAULT)[address] [facility] [place] [address] Hemoglobin (Bld) [Mass/Vol] 11.6 g/dL Low 13.4-16.8 [facility] Comment on above: Performed By: #### H EMOGC ####[facility] (DEFAULT)[address] [facility] [place] [address] MCV (RBC) [Entitic vol] 85.1 fL Normal 79.0-94.5 [facility] Comment on above: Performed By: #### H EMOGC ####[facility] (DEFAULT)[address] [facility] [place] [address] Mean Cell Hgb 27.4 pg Normal 26.1-33.3 [facility] Comment on above: Performed By: #### H EMOGC ####[facility] (DEFAULT)[address] [facility] [place] [address] Mean Cell Hgb Conc 32.1 g/dL Normal 31.9-36.5 [facility] Comment on above: Performed By: #### H EMOGC ####[facility] (DEFAULT)[address] [facility] [place] [address] Platelet mean volume (Bld) [Entitic vol] 9.5 fL Normal 8.7-12.3 [facility] Comment on above: Performed By: #### H EMOGC ####[facility] (DEFAULT)[address] [facility] [place] [address] Platelets (Bld) [#/Vol] 182 10*3/uL Normal 146-337 [facility] Comment on above: Performed By: #### H [facility] ####[facility] (DEFAULT)[address] [place] [address] RBC (Bld) [#/Vol] 4.24 10*6/uL Low 4.38-5.83 [facility] Comment on above: Performed By: #### H [facility] ####[facility] (DEFAULT)[address] [place] [address] RBC Distribution 13.6 % Normal 10.9-14.3 [facility] Comment on above: Performed By: #### H [facility] ####[facility] (DEFAULT)[address] [place] [address] WBC (Bld) [#/Vol] 4.59 10*3/uL Normal 3.73-10.10 [facility] Comment on above: Performed By: #### H [facility] ####[facility] (DEFAULT)[address] [place] [address] CHEM 7 (LYTES,BUN,CREA,GLUC) on 09-08-2023 Anion gap [Moles/Vol] 12 mmol/L 7 - 17 mmol/L [facility] Chloride [Moles/Vol] 113 mmol/L High 98 - 10 8 mmol/L [facility] CO2 [Moles/Vol] 21 mmol/L 21 - 31 mmol/L [facility] Creatinine [Mass/Vol] 1.14 mg/dL 0.70 - 1.30 mg/dL [facility] eGFR, CKD-EPI, Male 77 - PINF [facility] Glucose [Mass/Vol] 107 mg/dL High 70 - 99 mg/dL [facility] Osmolality Calc [Osmolality] 296 [facility] Potassium [Moles/Vol] 3.9 mmol/L 3.5 - 5.0 mmol/L [facility] Sodium [Moles/Vol] 142 mmol/L 135 - 145 mmol/L [facility] Urea nitrogen [Mass/Vol] 11 mg/dL 7 - 25 mg/dL [facility] Urea nitrogen/Creatinine [Mass ratio] 10 mg/mg [facility] Anion gap [Moles/Vol] 12 mmol/L Normal 7-17 [facility] Comment on above: Performed By: #### M GO, IPB, HFP, CHM7 ####[facility] (DEFAULT)[address] [facility] [place] [address] Chloride [Moles/Vol] 113 mmol/L High 98-108 [facility] Comment on above: Performed By: #### M GO, IPB, HFP, CHM7 ####[facility] (DEFAULT)[address] [facility] [place] [address] CO2 [Moles/Vol] 21 mmol/L Normal 21-31 [facility] Comment on above: Performed By: #### M GO, IPB, HFP, CHM7 ####[facility] (DEFAULT)[address] [facility] [place] [address] Creatinine [Mass/Vol] 1.14 mg/dL Normal 0.70-1.30 [facility] Comment on above: Performed By: #### M GO, IPB, HFP, CHM7 ####[facility] (DEFAULT)[address] [facility] [place] [address] GFR/1.73 sq M.predicted among non-blacks MDRD (S/P/Bld) [Vol rate/Area] 77 mL/min/{1.73_m2} Normal >=60 [facility] Comment on above: Result Comment: Repo rted eGFR is based on the CKD-EPI 2020 equation using creatinine, age, and sex. Performed By: #### M GO, IPB, HFP, CHM7 ####[facility] (DEFAULT)[address] [facility] [place] [address] Glucose [Mass/Vol] 107 mg/dL High 70-99 [facility] Comment on above: Performed By: #### M GO, IPB, HFP, CHM7 ####[facility] (DEFAULT)[address] [place] [address] Osmolality [Osmolality] 296 mosm/kg Normal 278-305 [facility] Comment on above: Performed By: #### M GO, IPB, HFP, CHM7 ####[facility] (DEFAULT)[address] [place] [address] Potassium [Moles/Vol] 3.9 mmol/L Normal 3.5-5.0 [facility] Comment on above: Performed By: #### M GO, IPB, HFP, CHM7 ####[facility] (DEFAULT)[address] [place] [address] Sodium [Moles/Vol] 142 mmol/L Normal 135-145 [facility] Comment on above: Performed By: #### M GO, IPB, HFP, CHM7 ####[facility] (DEFAULT)[address] [place] [address] Urea nitrogen [Mass/Vol] 11 mg/dL Normal 7-25 [facility] Comment on above: Performed By: #### M GO, IPB, HFP, CHM7 ####[facility] (DEFAULT)[address] [place] [address] Urea nitrogen/Creatinine [Mass ratio] 10 mg/mg Normal [facility] Comment on above: Performed By: #### M GO, IPB, HFP, CHM7 ####[facility] (DEFAULT)[address] [place] [address] HEPATIC FUNCTION PANELon Albumin [Mass/Vol] 2.9 g/dL Low 3.5 - 5.0 g/dL [facility] ALP [Catalytic activity/Vol] 133 U/L High 32 - 126 U/L [facility] ALT [Catalytic activity/Vol] 23 U/L 10 - 52 U/L [facility] AST [Catalytic activity/Vol] 23 U/L 10 - 39 U/L [facility] Bilirubin [Mass/Vol] 0.8 mg/dL NINF - 1.5 mg/dL [facility] Bilirubin.direct [Mass/Vol] 0.2 mg/dL NINF - 0.3 mg/dL [facility] Protein [Mass/Vol] 5.9 g/dL Low 6.4 - 8.3 g/dL [facility] Albumin [Mass/Vol] 2.9 g/dL Low 3.5-5.0 [facility] Comment on above: Performed By: #### M GO, IPB, HFP, CHM7 ####[facility] (DEFAULT)[address] [place] [address] ALP [Catalytic activity/Vol] 133 U/L High 32-126 [facility] Comment on above: Performed By: #### M GO, IPB, HFP, CHM7 ####[facility] (DEFAULT)[address] [place] [address] ALT [Catalytic activity/Vol] 23 U/L Normal 10-52 [facility] Comment on above: Performed By: #### M GO, IPB, HFP, CHM7 ####[facility] (DEFAULT)[address] [place] [address] AST [Catalytic activity/Vol] 23 U/L Normal 10-39 [facility] Comment on above: Performed By: #### M GO, IPB, HFP, CHM7 ####[facility] (DEFAULT)[address] [place] [address] Bilirubin [Mass/Vol] 0.8 mg/dL Normal <1.5 [facility] Comment on above: Performed By: #### M GO, IPB, HFP, CHM7 ####[facility] (DEFAULT)[address] [place] [address] Bilirubin.indirect [Mass/Vol] 0.2 mg/dL Normal <0.3 [facility] Comment on above: Performed By: #### M JO ANN BLOOM, TAVO, CHM7 ####[facility] (DEFAULT)[address] [place] [address] Protein [Mass/Vol] 5.9 g/dL Low 6.4-8.3 [facility] Comment on above: Performed By: #### M JO ANN BLOOM, TAVO, CHM7 ####[facility] (DEFAULT)[address] [place] [address] MAGNESIUMon 09-08-2023 Interpretation and review of laboratory results Normal [facility] Magnesium [Mass/Vol] 1.8 mg/dL 1.6 - 2 .6 mg/dL [facility] Magnesium [Mass/Vol] 1.8 mg/dL Normal 1.6-2.6 [facility] Comment on above: Performed By: #### JO ANN RAMÍREZ, TAVO, CHM7 ####[facility] (DEFAULT)[address] [place] [address] No Panel Informationon 09-08 Interpretation and review of laboratory results Abnormal [facility] PHOSPHATE, INORGANICon 09-08 Interpretation and review of laboratory results Normal [facility] Phosphate [Mass/Vol] 4.1 mg/dL 2.2 - 4 .6 mg/dL [facility] Phosphorous 4.1 mg/dL Normal 2.2-4.6 [facility] Comment on above: Performed By: #### M JO ANN BLOOM, TAVO, CHM7 ####[facility] (DEFAULT)[address] [place] [address] TACROLIMUS LEVEL, TROUGH (DC E DRUG LEVEL)on 09-08-2023 Interpretation and review of laboratory results Normal [facility] Tacrolimus (Bld) [Mass/Vol] 8.5 ng/mL [facility] Tacrolimus, Trough 8.5 ng/mL Normal Bone Susana ow Transplant: 4.0-12.0, Therapeutic: 5.0-15.0 [facility] Comment on above: Order Comment: Dilan gregory draw at specified interval PRIOR to dose. Do not hold dose to wait for level. Specimens batched twice per day, (M-F) and once per day weekendsMethod performed is a chemiluminescent microparticle immunoasssay on the [employer] i2000.The range is based on experience at [facility] and users should be aware that target concentrations vary widely depending on concomitant therapy, time post-transplant, and desired degree of immunosuppression. Performed By: #### T ACRO ####[facility] (DEFAULT)[address] [place] [address] CBC,PLATELETSon 09-07-2023 Erythrocyte distribution width (RBC) [Ratio] 13.5 % 10.9 - 14.3 % [facility] Hematocrit (Bld) [Volume fraction] 37.1 % Low 39.6 - 48.8 % [facility] Hemoglobin (Bld) [Mass/Vol] 11.9 g/dL Low 13.4 - 16.8 g/dL [facility] Interpretation and review of laboratory results Abnormal [facility] MCH (RBC) [Entitic mass] 27.7 pg 26.1 - 33.3 pg [facility] MCHC (RBC) [Mass/Vol] 32.1 g/dL 31.9 - 36.5 g/dL [facility] MCV (RBC) [Entitic vol] 86.5 fL 79.0 - 94.5 fL [facility] Platelet mean volume (Bld) [Entitic vol] 9.6 fL 8.7 - 12.3 fL [facility] Platelets (Bld) [#/Vol] 176 10*3/uL 146 - 337 K/uL [facility] RBC (Bld) [#/Vol] 4.29 10*6/uL Low [facility] WBC (Bld) [#/Vol] 4.10 10*3/uL 3.73 - 10. 10 K/uL [facility] Hematocrit (Bld) [Volume fraction] 37.1 % Low 39.6-48.8 [facility] Comment on above: Performed By: #### H EMOGC ####[facility] (DEFAULT)[address] [place] [address] Hemoglobin (Bld) [Mass/Vol] 11.9 g/dL Low 13.4-16.8 [facility] Comment on above: Performed By: #### H EMOGC ####[facility] (DEFAULT)[address] [place] [address] MCV (RBC) [Entitic vol] 86.5 fL Normal 79.0-94.5 [facility] Comment on above: Performed By: #### H EMOGC ####[facility] (DEFAULT)[address] [place] [address] Mean Cell Hgb 27.7 pg Normal 26.1-33.3 [facility] Comment on above: Performed By: #### H EMOGC ####[facility] (DEFAULT)[address] [place] [address] Mean Cell Hgb Conc 32.1 g/dL Normal 31.9-36.5 [facility] Comment on above: Performed By: #### H EMOGC ####[facility] (DEFAULT)[address] [place] [address] Platelet mean volume (Bld) [Entitic vol] 9.6 fL Normal 8.7-12.3 [facility] Comment on above: Performed By: #### H EMOGC ####[facility] (DEFAULT)[address] [place] [address] Platelets (Bld) [#/Vol] 176 10*3/uL Normal 146-337 [facility] Comment on above: Performed By: #### H EMOGC ####[facility] (DEFAULT)[address] [place] [address] RBC (Bld) [#/Vol] 4.29 10*6/uL Low 4.38-5.83 [facility] Comment on above: Performed By: #### H [facility] ####[facility] (DEFAULT)[address] [place] [address] RBC Distribution 13.5 % Normal 10.9-14.3 [facility] Comment on above: Performed By: #### H [facility] ####[facility] (DEFAULT)[address] [place] [address] WBC (Bld) [#/Vol] 4.10 10*3/uL Normal 3.73-10.10 [facility] Comment on above: Performed By: #### H [facility] ####[facility] (DEFAULT)[address] [place] [address] CHEM 7 (LYTES,BUN,CREA,GLUC) on 09-07-2023 Anion gap [Moles/Vol] 13 mmol/L 7 - 17 mmol/L [facility] Chloride [Moles/Vol] 113 mmol/L High 98 - 10 8 mmol/L [facility] CO2 [Moles/Vol] 19 mmol/L Low 21 - 31 mmol/L [facility] Creatinine [Mass/Vol] 1.22 mg/dL 0.70 - 1.30 mg/dL [facility] eGFR, CKD-EPI, Male 71 - PINF [facility] Glucose [Mass/Vol] 107 mg/dL High 70 - 99 mg/dL [facility] Osmolality [facility]c [facility]olality] [facility] Potassium [Moles/Vol] 3.9 mmol/L 3.5 - 5.0 mmol/L [facility] Sodium [Moles/Vol] 141 mmol/L 135 - 145 mmol/L [facility] Urea nitrogen [Mass/Vol] 13 mg/dL 7 - 25 mg/dL [facility] Urea nitrogen/Creatinine [Mass ratio] 11 [facility] Anion gap [Moles/Vol] 13 mmol/L Normal 7-17 [facility] Comment on above: Performed By: #### C HM7, IPB, MGO, HFP ####[facility] (DEFAULT)[address] [facility] [place] [address] Chloride [Moles/Vol] 113 mmol/L High 98-108 [facility] Comment on above: Performed By: #### C HM7, IPB, MGO, HFP ####[facility] (DEFAULT)[address] [facility] [place] [address] CO2 [Moles/Vol] 19 mmol/L Low 21-31 [facility] Comment on above: Performed By: #### C HM7, IPB, MGO, HFP ####[facility] (DEFAULT)[address] [facility] [place] [address] Creatinine [Mass/Vol] 1.22 mg/dL Normal 0.70-1.30 [facility] Comment on above: Performed By: #### C HM7, IPB, MGO, HFP ####[facility] (DEFAULT)[address] [facility] [place] [address] GFR/1.73 sq M.predicted among non-blacks MDRD (S/P/Bld) [Vol rate/Area] 71 mL/min/{1.73_m2} Normal >=60 [facility] Comment on above: Result Comment: Repo rted eGFR is based on the CKD-EPI 2020 equation using creatinine, age, and sex. Performed By: #### C HM7, IPB, MGO, HFP ####[facility] (DEFAULT)[address] [facility] [place] [address] Glucose [Mass/Vol] 107 mg/dL High 70-99 [facility] Comment on above: Performed By: #### C HM7, IPB, MGO, HFP ####[facility] (DEFAULT)[address] [facility] [place] [address] Osmolality [Osmolality] 295 mosm/kg Normal 278-305 [facility] Comment on above: Performed By: #### C HM7, IPB, MGO, HFP ####[facility] (DEFAULT)[address] [place] [address] Potassium [Moles/Vol] 3.9 mmol/L Normal 3.5-5.0 [facility] Comment on above: Performed By: #### C HM7, IPB, MGO, HFP ####[facility] (DEFAULT)[address] [place] [address] Sodium [Moles/Vol] 141 mmol/L Normal 135-145 [facility] Comment on above: Performed By: #### C HM7, IPB, MGO, HFP ####[facility] (DEFAULT)[address] [place] [address] Urea nitrogen [Mass/Vol] 13 mg/dL Normal 7-25 [facility] Comment on above: Performed By: #### C HM7, IPB, MGO, HFP ####[facility] (DEFAULT)[address] [facility] [place] [address] Urea nitrogen/Creatinine [Mass ratio] 11 mg/mg Normal [facility] Comment on above: Performed By: #### C HM7, IPB, MGO, HFP ####[facility] (DEFAULT)[address] [facility] [place] [address] HEPATIC FUNCTION PANELon Albumin [Mass/Vol] 2.9 g/dL Low 3.5 - 5.0 g/dL [facility] ALP [Catalytic activity/Vol] 111 U/L 32 - 126 U/L [facility] ALT [Catalytic activity/Vol] 18 U/L 10 - 52 U/L [facility] AST [Catalytic activity/Vol] 23 U/L 10 - 39 U/L [facility] Bilirubin [Mass/Vol] 0.8 mg/dL NINF - 1.5 mg/dL [facility] Bilirubin.direct [Mass/Vol] 0.3 mg/dL High NINF - 0.3 mg/dL [facility] Protein [Mass/Vol] 6.0 g/dL Low 6.4 - 8.3 g/dL [facility] Albumin [Mass/Vol] 2.9 g/dL Low 3.5-5.0 [facility] Comment on above: Performed By: #### C HM7, IPB, MGO, HFP ####[facility] (DEFAULT)[address] [place] [address] ALP [Catalytic activity/Vol] 111 U/L Normal 32-126 [facility] Comment on above: Performed By: #### C HM7, IPB, MGO, HFP ####[facility] (DEFAULT)[address] [place] [address] ALT [Catalytic activity/Vol] 18 U/L Normal 10-52 [facility] Comment on above: Performed By: #### C HM7, IPB, MGO, HFP ####[facility] (DEFAULT)[address] [place] [address] AST [Catalytic activity/Vol] 23 U/L Normal 10-39 [facility] Comment on above: Performed By: #### C HM7, IPB, MGO, HFP ####[facility] (DEFAULT)[address] [place] [address] Bilirubin [Mass/Vol] 0.8 mg/dL Normal <1.5 [facility] Comment on above: Performed By: #### C HM7, IPB, MGO, HFP ####[facility] (DEFAULT)[address] [place] [address] Bilirubin.indirect [Mass/Vol] 0.3 mg/dL High <0.3 [facility] Comment on above: Performed By: #### C HM7, IPB, MGO, HFP ####[facility] (DEFAULT)[address] [place] [address] Protein [Mass/Vol] 6.0 g/dL Low 6.4-8.3 [facility] Comment on above: Performed By: #### C JO ANN MEDLEY MGO, HFP ####[facility] (DEFAULT)[address] [place] [address] MAGNESIUMon 09-07-2023 Interpretation and review of laboratory results Normal [facility] Magnesium [Mass/Vol] 1.7 mg/dL 1.6 - 2 .6 mg/dL [facility] Magnesium [Mass/Vol] 1.7 mg/dL Normal 1.6-2.6 [facility] Comment on above: Performed By: #### C JASMYNE, DOMENICA CHERRY, HFP ####[facility] (DEFAULT)[address] [place] [address] No Panel Informationon 09-07 Interpretation and review of laboratory results Abnormal [facility] PHOSPHATE, INORGANICon 09-07 Interpretation and review of laboratory results Normal [facility] Phosphate [Mass/Vol] 4.4 mg/dL 2.2 - 4 .6 mg/dL [facility] Phosphorous 4.4 mg/dL Normal 2.2-4.6 [facility] Comment on above: Performed By: #### C JASMYNE, JO ANN, MGO, HFP ####[facility] (DEFAULT)[address] [place] [address] TACROLIMUS LEVEL, TROUGH (DC E DRUG LEVEL)Ordered By: Elizabeth Maldonado on 09-07-2023 Interpretation and review of laboratory results Normal [facility] Tacrolimus (Bld) [Mass/Vol] 7.8 ng/mL [facility] TACROLIMUS LEVEL, TROUGH (DC E DRUG LEVEL)on 09-07-2023 Tacrolimus, Trough 7.8 ng/mL Normal Bone Susana ow Transplant: 4.0-12.0, Therapeutic: 5.0-15.0 [facility] Comment on above: Order Comment: Plejoan e draw at specified interval PRIOR to dose. Do not hold dose to wait for level. Specimens batched twice per day, (M-F) and once per day weekendsMethod performed is a chemiluminescent microparticle immunoasssay on the [employer] i2000.The range is based on experience at [facility] and users should be aware that target concentrations vary widely depending on concomitant therapy, time post-transplant, and desired degree of immunosuppression. Performed By: #### T ACRO ####[facility] (DEFAULT)[address] [place] [address] CBC,PLATELETSon 09-06-2023 Erythrocyte distribution width (RBC) [Ratio] 13.4 % 10.9 - 14.3 % [facility] Hematocrit (Bld) [Volume fraction] 38.4 % Low 39.6 - 48.8 % [facility] Hemoglobin (Bld) [Mass/Vol] 11.9 g/dL Low 13.4 - 16.8 g/dL [facility] Interpretation and review of laboratory results Abnormal [facility]CH (RBC) [Entitic mass] 26.6 pg 26.1 - 33.3 pg [facility] MCHC (RBC) [Mass/Vol] 31.0 g/dL Low 31.9 - 36.5 g/dL [facility] MCV (RBC) [Entitic vol] 85.9 fL 79.0 - 94.5 fL [facility] Platelet mean volume (Bld) [Entitic vol] 9.7 fL 8.7 - 12.3 fL [facility] Platelets (Bld) [#/Vol] 181 10*3/uL 146 - 337 K/uL [facility] RBC (Bld) [#/Vol] 4.47 10*6/uL [facility] WBC (Bld) [#/Vol] 4.41 10*3/uL 3.73 - 10. 10 K/uL [facility] Hematocrit (Bld) [Volume fraction] 38.4 % Low 39.6-48.8 [facility] Comment on above: Performed By: #### H EMOGC ####[facility] (DEFAULT)[address] [facility] [place] [address] Hemoglobin (Bld) [Mass/Vol] 11.9 g/dL Low 13.4-16.8 [facility] Comment on above: Performed By: #### H EMOGC ####[facility] (DEFAULT)[address] [facility] [place] [address] MCV (RBC) [Entitic vol] 85.9 fL Normal 79.0-94.5 [facility] Comment on above: Performed By: #### H EMOGC ####[facility] (DEFAULT)[address] [facility] [place] [address] Mean Cell Hgb 26.6 pg Normal 26.1-33.3 [facility] Comment on above: Performed By: #### H EMOGC ####[facility] (DEFAULT)[address] [facility] [place] [address] Mean Cell Hgb Conc 31.0 g/dL Low 31.9-36.5 [facility] Comment on above: Performed By: #### H EMOGC ####[facility] (DEFAULT)[address] [facility] [place] [address] Platelet mean volume (Bld) [Entitic vol] 9.7 fL Normal 8.7-12.3 [facility] Comment on above: Performed By: #### H EMOGC ####[facility] (DEFAULT)[address] [facility] [place] [address] Platelets (Bld) [#/Vol] 181 10*3/uL Normal 146-337 [facility] Comment on above: Performed By: #### H EMOGC ####[facility] (DEFAULT)[address] [facility] [place] [address] RBC (Bld) [#/Vol] 4.47 10*6/uL Normal 4.38-5.83 [facility] Comment on above: Performed By: #### H [facility] [place] ####[facility] (DEFAULT)[address] [place] [address] RBC Distribution 13.4 % Normal 10.9-14.3 [facility] Comment on above: Performed By: #### H [facility] [place] ####[facility] (DEFAULT)[address] [place] [address] WBC (Bld) [#/Vol] 4.41 10*3/uL Normal 3.73-10.10 [facility] Comment on above: Performed By: #### H [facility] [place] ####[facility] (DEFAULT)[address] [place] [address] CHEM 7 (LYTES,BUN,CREA,GLUC) on 09-06-2023 Anion gap [Moles/Vol] 14 mmol/L 7 - 17 mmol/L [facility] Chloride [Moles/Vol] 109 mmol/L High 98 - 10 8 mmol/L [facility] CO2 [Moles/Vol] 19 mmol/L Low 21 - 31 mmol/L [facility] Creatinine [Mass/Vol] 1.26 mg/dL 0.70 - 1.30 mg/dL [facility] eGFR, CKD-EPI, Male 69 - PINF [facility] Glucose [Mass/Vol] 114 mg/dL High 70 - 99 mg/dL [facility] Potassium [Moles/Vol] 4.1 mmol/L 3.5 - 5.0 mmol/L [facility] Sodium [Moles/Vol] 138 mmol/L 135 - 145 mmol/L [facility] Urea nitrogen [Mass/Vol] 16 mg/dL 7 - 25 mg/dL [facility] Urea nitrogen/Creatinine [Mass ratio] 13 mg/mg [facility] Anion gap [Moles/Vol] 14 mmol/L Normal 7-17 [facility] Comment on above: Performed By: #### M GO, CHM7, HFP ####[facility] (DEFAULT)[address] [place] [address] Chloride [Moles/Vol] 109 mmol/L High 98-108 [facility] Comment on above: Performed By: #### NATHANIEL RAMÍREZ, HFP ####[facility] (DEFAULT)[address] [place] [address] CO2 [Moles/Vol] 19 mmol/L Low 21-31 [facility] Comment on above: Performed By: #### NATHANIEL RAMÍREZ, HFP ####[facility] (DEFAULT)[address] [place] [address] Creatinine [Mass/Vol] 1.26 mg/dL Normal 0.70-1.30 [facility] Comment on above: Performed By: #### NATHANIEL RAMÍREZ, HFP ####[facility] (DEFAULT)[address] [place] [address] GFR/1.73 sq M.predicted among non-blacks MDRD (S/P/Bld) [Vol rate/Area] 69 mL/min/{1.73_m2} Normal >=60 [facility] Comment on above: Result Comment: Repo rted eGFR is based on the CKD-EPI 2020 equation using creatinine, age, and sex. Performed By: #### NATHANIEL RAMÍREZ, HFP ####[facility] (DEFAULT)[address] [place] [address] Glucose [Mass/Vol] 114 mg/dL High 70-99 [facility] Comment on above: Performed By: #### NATHANIEL RAMÍREZ, HFP ####[facility] (DEFAULT)[address] [place] [address] Osmolality [Osmolality] 291 mosm/kg Normal 278-305 [facility] Comment on above: Performed By: #### NATHANIEL RAMÍREZ, HFP ####[facility] (DEFAULT)[address] [place] [address] Potassium [Moles/Vol] 4.1 mmol/L Normal 3.5-5.0 [facility] Comment on above: Performed By: #### NATHANIEL RAMÍREZ, HFP ####[facility] (DEFAULT)[address] [place] [address] Sodium [Moles/Vol] 138 mmol/L Normal 135-145 [facility] Comment on above: Performed By: #### NATHANIEL RAMÍREZ, HFP ####[facility] (DEFAULT)[address] [place] [address] Urea nitrogen [Mass/Vol] 16 mg/dL Normal 7-25 [facility] Comment on above: Performed By: #### NATHANIEL RAMÍREZ, HFP ####[facility] (DEFAULT)[address] [facility] [place] [address] Urea nitrogen/Creatinine [Mass ratio] 13 mg/mg Normal [facility] Comment on above: Performed By: #### NATHANIEL RAMÍREZ, HFP ####[facility] (DEFAULT)[address] [place] [address] HEPATIC FUNCTION PANELon Albumin [Mass/Vol] 3.0 g/dL Low 3.5 - 5.0 g/dL [facility] ALP [Catalytic activity/Vol] 115 U/L 32 - 126 U/L [facility] ALT [Catalytic activity/Vol] 25 U/L 10 - 52 U/L [facility] AST [Catalytic activity/Vol] 31 U/L 10 - 39 U/L [facility] Bilirubin [Mass/Vol] 1.0 mg/dL [facility] Bilirubin.direct [Mass/Vol] 0.3 mg/dL High NINF - 0.3 mg/dL [facility] Protein [Mass/Vol] 6.3 g/dL Low 6.4 - 8.3 g/dL [facility] Albumin [Mass/Vol] 3.0 g/dL Low 3.5-5.0 [facility] Comment on above: Performed By: #### M MERLE CHM7, HFP ####[facility] (DEFAULT)[address] [place] [address] ALP [Catalytic activity/Vol] 115 U/L Normal 32-126 [facility] Comment on above: Performed By: #### M MERLE CHM7, HFP ####[facility] (DEFAULT)[address] [place] [address] ALT [Catalytic activity/Vol] 25 U/L Normal 10-52 [facility] Comment on above: Performed By: #### M MERLE CHM7, HFP ####[facility] (DEFAULT)[address] [place] [address] AST [Catalytic activity/Vol] 31 U/L Normal 10-39 [facility] Comment on above: Performed By: #### M HELEN BLOOMM7, HFP ####[facility] (DEFAULT)[address] [place] [address] Bilirubin [Mass/Vol] 1.0 mg/dL Normal <1.5 [facility] Comment on above: Performed By: #### M MERLE CHM7, HFP ####[facility] (DEFAULT)[address] [place] [address] Bilirubin.indirect [Mass/Vol] 0.3 mg/dL High <0.3 [facility] Comment on above: Performed By: #### M MERLE CHM7, HFP ####[facility] (DEFAULT)[address] [place] [address] Protein [Mass/Vol] 6.3 g/dL Low 6.4-8.3 [facility] Comment on above: Performed By: #### M MERLE CHM7, HFP ####[facility] (DEFAULT)[address] [place] [address] MAGNESIUMon 09-06-2023 Interpretation and review of laboratory results Normal [facility] Magnesium [Mass/Vol] 2.0 mg/dL 1.6 - 2 .6 mg/dL [facility] Magnesium [Mass/Vol] 2.0 mg/dL Normal 1.6-2.6 [facility] Comment on above: Performed By: #### M GO, CHM7, [facility] ####[facility] (DEFAULT)[address] [place] [address] No Panel Informationon 09-06 Interpretation and review of laboratory results Abnormal [facility] TACROLIMUS LEVEL, TROUGH (DC E DRUG LEVEL)on 09-06-2023 Interpretation and review of laboratory results Normal [facility] Tacrolimus (Bld) [Mass/Vol] 6.7 ng/mL [facility] Tacrolimus, Trough 6.7 ng/mL Normal [facility] Susana ow Transplant: 4.0-12.0, Therapeutic: 5.0-15.0 [facility] Comment on above: Order Comment: Pleas e draw at specified interval PRIOR to dose. Do not hold dose to wait for level. Specimens batched twice per day, (M-F) and once per day weekendsMethod performed is a chemiluminescent microparticle immunoasssay on the [employer] Mercerizer i2000.The range is based on experience at [facility] and users should be aware that target concentrations vary widely depending on concomitant therapy, time post-transplant, and desired degree of immunosuppression. Performed By: #### T ACRO ####[facility] (DEFAULT)[address] [place] [address] CBC,PLATELETSon 09-05-2023 Erythrocyte distribution width (RBC) [Ratio] 13.5 % 10.9 - 14.3 % [facility] Hematocrit (Bld) [Volume fraction] 35.6 % Low 39.6 - 48.8 % [facility] Hemoglobin (Bld) [Mass/Vol] 11.4 g/dL Low 13.4 - 16.8 g/dL [facility] Interpretation and review of laboratory results Abnormal [facility] MCH (RBC) [Entitic mass] 27.5 pg 26.1 - 33.3 pg [facility] MCHC (RBC) [Mass/Vol] 32.0 g/dL 31.9 - 36.5 g/dL [facility] MCV (RBC) [Entitic vol] 86.0 fL 79.0 - 94.5 fL [facility] Platelet mean volume (Bld) [Entitic vol] 10.0 fL 8.7 - 12.3 fL [facility] Platelets (Bld) [#/Vol] 170 10*3/uL 146 - 337 K/uL [facility] RBC (Bld) [#/Vol] 4.14 10*6/uL Low [facility] WBC (Bld) [#/Vol] 4.24 10*3/uL 3.73 - 10. 10 K/uL [facility] Hematocrit (Bld) [Volume fraction] 35.6 % Low 39.6-48.8 [facility] Comment on above: Performed By: #### H [facility] [place] ####[facility] (DEFAULT)[address] [place] [address] Hemoglobin (Bld) [Mass/Vol] 11.4 g/dL Low 13.4-16.8 [facility] Comment on above: Performed By: #### H EMO ####[facility] (DEFAULT)[address] [place] [address] MCV (RBC) [Entitic vol] 86.0 fL Normal 79.0-94.5 [facility] Comment on above: Performed By: #### H EMOGC ####[facility] (DEFAULT)[address] [place] [address] Mean Cell Hgb 27.5 pg Normal 26.1-33.3 [facility] Comment on above: Performed By: #### H EMOGC ####[facility] (DEFAULT)[address] [place] [address] Mean Cell Hgb Conc 32.0 g/dL Normal 31.9-36.5 [facility] Comment on above: Performed By: #### H EMO ####[facility] (DEFAULT)[address] [facility] [place] [address] Platelet mean volume (Bld) [Entitic vol] 10.0 fL Normal 8.7-12.3 [facility] Comment on above: Performed By: #### H EMO ####[facility] (DEFAULT)[address] [facility] [place] [address] Platelets (Bld) [#/Vol] 170 10*3/uL Normal 146-337 [facility] Comment on above: Performed By: #### H EMO ####[facility] (DEFAULT)[address] [facility] [place] [address] RBC (Bld) [#/Vol] 4.14 10*6/uL Low 4.38-5.83 [facility] Comment on above: Performed By: #### H EMO ####[facility] (DEFAULT)[address] [facility] [place] [address] RBC Distribution 13.5 % Normal 10.9-14.3 [facility] Comment on above: Performed By: #### H EMO ####[facility] (DEFAULT)[address] [facility] [place] [address] WBC (Bld) [#/Vol] 4.24 10*3/uL Normal 3.73-10.10 [facility] Comment on above: Performed By: #### H EMOGC ####[facility] (DEFAULT)[address] [place] [address] CHEM 7 (LYTES,BUN,CREA,GLUC) on 09-05-2023 Anion gap [Moles/Vol] 12 mmol/L 7 - 17 mmol/L [facility] Chloride [Moles/Vol] 107 mmol/L 98 - 10 8 mmol/L [facility] CO2 [Moles/Vol] 20 mmol/L Low 21 - 31 mmol/L [facility] Creatinine [Mass/Vol] 1.43 mg/dL High 0.70 - 1.30 mg/dL [facility] eGFR, CKD-EPI, Male 60 Low - PINF [facility] Glucose [Mass/Vol] 111 mg/dL High 70 - 99 mg/dL [facility] Potassium [Moles/Vol] 4.2 mmol/L 3.5 - 5.0 mmol/L [facility] Sodium [Moles/Vol] 135 mmol/L 135 - 145 mmol/L [facility] Urea nitrogen [Mass/Vol] 18 mg/dL 7 - 25 mg/dL [facility] Urea nitrogen/Creatinine [Mass ratio] 13 mg/mg [facility] Anion gap [Moles/Vol] 12 mmol/L Normal 7-17 [facility] Comment on above: Performed By: #### H ANTWAN, CHM7, MGO ####[facility] (DEFAULT)[address] [facility] [place] [address] Chloride [Moles/Vol] 107 mmol/L Normal 98-108 [facility] Comment on above: Performed By: #### H ANTWAN, CHM7, MGO ####[facility] (DEFAULT)[address] [facility] [place] [address] CO2 [Moles/Vol] 20 mmol/L Low 21-31 [facility] Comment on above: Performed By: #### H ANTWAN, CHM7, MGO ####[facility] (DEFAULT)[address] [facility] [place] [address] Creatinine [Mass/Vol] 1.43 mg/dL High 0.70-1.30 [facility] Comment on above: Performed By: #### H FP, CHM7, MGO ####[facility] (DEFAULT)[address] [facility] [place] [address] GFR/1.73 sq M.predicted among non-blacks MDRD (S/P/Bld) [Vol rate/Area] 59 mL/min/{1.73_m2} Low >=60 [facility] Comment on above: Result Comment: Repo rted eGFR is based on the CKD-EPI 2020 equation using creatinine, age, and sex. Performed By: #### H FP, CHM7, MGO ####[facility] (DEFAULT)[address] [place] [address] Glucose [Mass/Vol] 111 mg/dL High 70-99 [facility] Comment on above: Performed By: #### H FP, CHM7, MGO ####[facility] (DEFAULT)[address] [place] [address] Osmolality [Osmolality] 286 mosm/kg Normal 278-305 [facility] Comment on above: Performed By: #### H FP, CHM7, MGO ####[facility] (DEFAULT)[address] [place] [address] Potassium [Moles/Vol] 4.2 mmol/L Normal 3.5-5.0 [facility] Comment on above: Performed By: #### H FP, CHM7, MGO ####[facility] (DEFAULT)[address] [place] [address] Sodium [Moles/Vol] 135 mmol/L Normal 135-145 [facility] Comment on above: Performed By: #### H FP, CHM7, MGO ####[facility] (DEFAULT)[address] [facility] [place] [address] Urea nitrogen [Mass/Vol] 18 mg/dL Normal 7-25 [facility] Comment on above: Performed By: #### H FP, CHM7, MGO ####[facility] (DEFAULT)[address] [place] [address] Urea nitrogen/Creatinine [Mass ratio] 13 mg/mg Normal [facility] Comment on above: Performed By: #### H FP, CHM7, MGO ####[facility] (DEFAULT)[address] [facility] [place] [address] CONTINUOUS CARDIAC MONITORIN G STRIPon 09-05-2023 [facility] HEPATIC FUNCTION PANELon Albumin [Mass/Vol] 2.8 g/dL Low 3.5 - 5.0 g/dL [facility] ALP [Catalytic activity/Vol] 103 U/L 32 - 126 U/L [facility] ALT [Catalytic activity/Vol] 26 U/L 10 - 52 U/L [facility] AST [Catalytic activity/Vol] 38 U/L 10 - 39 U/L [facility] Bilirubin [Mass/Vol] 0.9 mg/dL NINF - 1.5 mg/dL [facility] Bilirubin.direct [Mass/Vol] 0.1 mg/dL NINF - 0.3 mg/dL [facility] Protein [Mass/Vol] 6.1 g/dL Low 6.4 - 8.3 g/dL [facility] Albumin [Mass/Vol] 2.8 g/dL Low 3.5-5.0 [facility] Comment on above: Performed By: #### H ANTWAN, HELENM7, MGO ####[facility] (DEFAULT)[address] [facility] [place] [address] ALP [Catalytic activity/Vol] 103 U/L Normal 32-126 [facility] Comment on above: Performed By: #### H ANTWAN, CHM7, MGO ####[facility] (DEFAULT)[address] [facility] [place] [address] ALT [Catalytic activity/Vol] 26 U/L Normal 10-52 [facility] Comment on above: Performed By: #### H ANTWAN, CHM7, MGO ####[facility] (DEFAULT)[address] [facility] [place] [address] AST [Catalytic activity/Vol] 38 U/L Normal 10-39 [facility] Comment on above: Performed By: #### H FP, CHM7, MGO ####[facility] (DEFAULT)[address] [place] [address] Bilirubin [Mass/Vol] 0.9 mg/dL Normal <1.5 [facility] Comment on above: Performed By: #### H FP, CHM7, MGO ####[facility] (DEFAULT)[address] [facility] [place] [address] Bilirubin.indirect [Mass/Vol] 0.1 mg/dL Normal <0.3 [facility] Comment on above: Performed By: #### H FP, CHM7, MGO ####[facility] (DEFAULT)[address] [facility] [place] [address] Protein [Mass/Vol] 6.1 g/dL Low 6.4-8.3 [facility] Comment on above: Performed By: #### H FP, CHM7, MGO ####[facility] (DEFAULT)[address] [facility] [place] [address] HISTOPLASMA ANTIGEN, FLUIDon 09-05-2023 FH SOURCE BAL RML [facility] Histo FLD interpretation Negative [facility] Histoplasma Antigen, FLUID Not detected ng/mL [facility] HISTOPLASMA CAPSULATUM/BLAST OMYCES SPECIES,PCR FLUIDon 09-05-2023 HISTO/BLASTO RESULT Negative Not Applicable [facility] Specimen source Nom (Unsp spec) BAL RML [facility] IMMUNOPHENOTYPING, TISSUE/FL UIDon 09-05-2023 BKR DX CODE Use Ordering [facility] Flow Interpretation See Comment [facility] Flow Interpreted by: Yossi Perla MD, PhD [facility] MAGNESIUMon 09-05-2023 Interpretation and review of laboratory results Normal [facility] Magnesium [Mass/Vol] 1.7 mg/dL 1.6 - 2 .6 mg/dL [facility] Magnesium [Mass/Vol] 1.7 mg/dL Normal 1.6-2.6 [facility] Comment on above: Performed By: #### H FP, CHM7, MGO ####[facility] (DEFAULT)[address] [place] [address] No Panel Informationon 09-05 Interpretation and review of laboratory results Abnormal [facility] TACROLIMUS LEVEL, TROUGH (DC E DRUG LEVEL)Ordered By: Raymundo Mehta on 09-05-2023 Interpretation and review of laboratory results Normal [facility] Tacrolimus (Bld) [Mass/Vol] 5.3 ng/mL [facility] TACROLIMUS LEVEL, TROUGH (DC E DRUG LEVEL)on 09-05-2023 Tacrolimus, Trough 5.3 ng/mL Normal Bone Susana ow Transplant: 4.0-12.0, Therapeutic: 5.0-15.0 [facility] Comment on above: Order Comment: Pleas e draw at specified interval PRIOR to dose. Do not hold dose to wait for level. Specimens batched twice per day, (M-F) and once per day weekendsMethod performed is a chemiluminescent microparticle immunoasssay on the [employer] Mercerizer i2000.The range is based on experience at [facility] and users should be aware that target concentrations vary widely depending on concomitant therapy, time post-transplant, and desired degree of immunosuppression. Performed By: #### T ACRO ####[facility] (DEFAULT)[address] [place] [address] ARTERIAL BLOOD GAS (FULL GOSS EL)on 09-04-2023 Base excess Calc (Bld) [Moles/Vol] -1.2000 mmol/L -3.0 - 3.0 mmol/L [facility] Calcium.ionized (Bld) [Mass/Vol] 4.79 mg/dL 4.60 - 5.30 mg/dL [facility] Carboxyhemoglobin (Bld) [Mass fraction] 0.7 % NINF - 1.5 % [facility] CO2 (Bld) [Partial pressure] 30 mm[Hg] Low [facility] Glucose [Mass/Vol] 159 mg/dL High 70 - 99 mg/dL [facility] HCO3 (Bld) [Moles/Vol] 22 mmol/L 22 - 28 mmol/L [facility] Hematocrit (Bld) [Volume fraction] 38.0 % Low 40.2 - 50.4 % [facility] Hemoglobin (Bld) [Mass/Vol] 12.6 g/dL Low 13.4 - 16.8 g/dL [facility] Interpretation and review of laboratory results Abnormal [facility] Lactate [Moles/Vol] 2.0 mmol/L High 0.5 - 1. 6 mmol/L [facility] Methemoglobin (Bld) [Mass fraction] 0.0 % NINF - 1.5 % [facility] Oxygen (Bld) [Partial pressure] 62 mm[Hg] Low [facility] Oxygen saturation in Blood 92 % Low 94 - 98 % [facility] Oxyhemoglobin 91 % Low 94 - 98 % [facility] pH (Bld) 7.48 [pH] High 7.35 - 7.45 [facility] Potassium [Moles/Vol] 4.2 mmol/L 3.5 - 5.0 mmol/L [facility] Sodium [Moles/Vol] 130 mmol/L Low 135 - 145 mmol/L [facility] Specimen source Nom (Unsp spec) Arterial [facility] Base Excess -1.2 mmol/L Normal -3.0-3.0 [facility] Comment on above: Performed By: #### Vale UNDERWOOD ####[facility] (DEFAULT)[address] [address] Carboxyhemoglobin 0.7 % Normal <=1.5 [facility] Comment on above: Performed By: #### Vale UNDERWOOD ####[facility] (DEFAULT)[address] [place] [address] Glucose [Mass/Vol] 159 mg/dL High 70-99 [facility] Comment on above: Performed By: #### Vale UNDERWOOD ####[facility] (DEFAULT)[address] [place] [address] HCO3 (Bld) [Moles/Vol] 22 mmol/L Normal 22-28 [facility] Comment on above: Performed By: #### G YASMINE ####[facility] (DEFAULT)[address] [place] [address] Hematocrit (Bld) [Volume fraction] 38.0 % Low 40.2-50.4 [facility] Comment on above: Performed By: #### G YASMINE ####[facility] (DEFAULT)[address] [place] [address] Hemoglobin (Bld) [Mass/Vol] 12.6 g/dL Low 13.4-16.8 [facility] Comment on above: Performed By: #### Vale UNDERWOOD ####[facility] (DEFAULT)[address] [place] [address] Ionized Calcium, Whole Blood 4.79 mg/dL Normal 4.60-5.30 [facility] Comment on above: Performed By: #### Vale UNDERWOOD ####[facility] (DEFAULT)[address] [place] [address] Lactate, Whole Blood 2.0 mmol/L High 0.5-1.6 [facility] Comment on above: Performed By: #### Vale UNDERWOOD ####[facility] (DEFAULT)[address] [facility] [place] [address] Methemoglobin 0.0 % Normal <=1.5 [facility] Comment on above: Performed By: #### Vale UNDERWOOD ####[facility] (DEFAULT)[address] [facility] [facility] [place] [address] Oxyhemoglobin 91 % Low 94-98 [facility] Comment on above: Performed By: #### G YASMINE ####[facility] (DEFAULT)[address] [facility] [facility] [place] [address] pCO2 30 mm Hg Low 32-48 [facility] Comment on above: Performed By: #### G YASMINE ####[facility] (DEFAULT)[address] [facility] [place] [address] pH (Bld) 7.48 [pH] High 7.35-7.45 [facility] Comment on above: Performed By: #### G YASMINE ####[facility] (DEFAULT)[address] [place], [place] [address], [place] [address] pO2 62 mm Hg Low 83-108 [facility] Comment on above: Performed By: #### Vale UNDERWOOD ####[facility] (DEFAULT)[address] [facility] [facility] [place] [address] Potassium [Moles/Vol] 4.2 mmol/L Normal 3.5-5.0 [facility] Comment on above: Performed By: #### Vale UNDERWOOD ####[facility] (DEFAULT)[address] [place], [place] [address], [place] [address] sO2 92 % Low 94-98 [facility] Comment on above: Performed By: #### Vale UNDERWOOD ####[facility] (DEFAULT)[address] [facility] [facility] [place] [address] Sodium [Moles/Vol] 130 mmol/L Low 135-145 [facility] Comment on above: Performed By: #### Vale UNDERWOOD ####[facility] (DEFAULT)[address] [place], [place] [address], [place] [address] Specimen type Nom (Spec) Arterial Normal [facility] Comment on above: Performed By: #### Vale UNDERWOOD ####[facility] (DEFAULT)[address] [facility] [facility] [place] [address] Bacteria identified Respirat ory culture Nom (Unsp spec)on 09-04-2023 Bacteria identified Cx Nom (Unsp spec) NO GROWTH DAY [facility]scopic [facility] Other stain Nom (Unsp spec) Cytocentrifuge preparation [facility] Microscopic observation Other stain Nom (Unsp spec) [facility]ils, [facility] Other stain Nom (Unsp spec) Red Blood Cells Present [facility]sc[facility] Other stain Nom (Unsp spec) [facility] B[facility] identified Respirat ory culture Nom (Unsp spec)Ordered By: Jose Salgado on 09-04-2023 Bacteria identified Cx Nom (Unsp spec) NO GROWTH DAY 2 [facility] 2 [facility] Microscopic observation Other stain Nom (Unsp spec) Cytocentrifuge preparation [facility] Microscopic observation Other stain Nom (Unsp spec) Neutrophils, Moderate [facility] Other stain Nom (Unsp spec) Red Blood Cells Present [facility] Microscopic observation Other stain Nom (Unsp spec) No organisms seen [facility] CBC,PLATELETSon 09-04-2023 Erythrocyte distribution width (RBC) [Ratio] 13.2 % 10.9 - 14.3 % [facility] Hematocrit (Bld) [Volume fraction] 38.7 % Low 39.6 - 48.8 % [facility] Hemoglobin (Bld) [Mass/Vol] 12.3 g/dL Low 13.4 - 16.8 g/dL [facility] Interpretation and review of laboratory results Abnormal [facility] MCH (RBC) [Entitic mass] 27.9 pg 26.1 - 33.3 pg [facility] MCHC (RBC) [Mass/Vol] 31.8 g/dL Low 31.9 - 36.5 g/dL [facility] MCV (RBC) [Entitic vol] 87.8 fL 79.0 - 94.5 fL [facility] Platelet mean volume (Bld) [Entitic vol] 9.8 fL 8.7 - 12.3 fL [facility] Platelets (Bld) [#/Vol] 173 10*3/uL 146 - 337 K/uL [facility] RBC (Bld) [#/Vol] 4.41 10*6/uL [facility] WBC (Bld) [#/Vol] 4.57 10*3/uL 3.73 - 10. 10 K/uL [facility] Hematocrit (Bld) [Volume fraction] 38.7 % Low 39.6-48.8 [facility] Comment on above: Performed By: #### H EMOGC ####[facility] (DEFAULT)[address] [facility] [facility] [place] [address] Hemoglobin (Bld) [Mass/Vol] 12.3 g/dL Low 13.4-16.8 [facility] Comment on above: Performed By: #### H EMOGC ####[facility] (DEFAULT)[address] [facility] [place] [address] MCV (RBC) [Entitic vol] 87.8 fL Normal 79.0-94.5 [facility] Comment on above: Performed By: #### H EMOGC ####[facility] (DEFAULT)[address] [facility] [place] [address] Mean Cell Hgb 27.9 pg Normal 26.1-33.3 [facility] Comment on above: Performed By: #### H EMOGC ####[facility] (DEFAULT)[address] [facility] [place] [address] Mean Cell Hgb Conc 31.8 g/dL Low 31.9-36.5 [facility] Comment on above: Performed By: #### H EMOGC ####[facility] (DEFAULT)[address] [facility] [place] [address] Platelet mean volume (Bld) [Entitic vol] 9.8 fL Normal 8.7-12.3 [facility] Comment on above: Performed By: #### H EMOGC ####[facility] (DEFAULT)[address] [facility] [place] [address] Platelets (Bld) [#/Vol] 173 10*3/uL Normal 146-337 [facility] Comment on above: Performed By: #### [facility] ####[facility] (DEFAULT)[address] [place] [address] RBC (Bld) [#/Vol] 4.41 10*6/uL Normal 4.38-5.83 [facility] Comment on above: Performed By: #### H [facility] ####[facility] (DEFAULT)[address] [place] [address] RBC Distribution 13.2 % Normal 10.9-14.3 [facility] Comment on above: Performed By: #### H [facility] ####[facility] (DEFAULT)[address] [place] [address] WBC (Bld) [#/Vol] 4.57 10*3/uL Normal 3.73-10.10 [facility] Comment on above: Performed By: #### H [facility] ####[facility] (DEFAULT)[address] [place] [address] CHEM 7 (LYTES,BUN,CREA,GLUC) on 09-04-2023 Anion gap [Moles/Vol] 16 mmol/L 7 - 17 mmol/L [facility] Chloride [Moles/Vol] 104 mmol/L 98 - 10 8 mmol/L [facility] CO2 [Moles/Vol] 18 mmol/L Low 21 - 31 mmol/L [facility] Creatinine [Mass/Vol] 1.22 mg/dL 0.70 - 1.30 mg/dL [facility] eGFR, CKD-EPI, Male 71 - PINF [facility] Glucose [Mass/Vol] 124 mg/dL High 70 - 99 mg/dL [facility] Osmolality Calc [Osmolality] 284 [facility] Potassium [Moles/Vol] 3.9 mmol/L 3.5 - 5.0 mmol/L [facility] Sodium [Moles/Vol] 134 mmol/L Low 135 - 145 mmol/L [facility] Urea nitrogen [Mass/Vol] 15 mg/dL 7 - 25 mg/dL [facility] Urea nitrogen/Creatinine [Mass ratio] 12 mg/mg [facility] Anion gap [Moles/Vol] 16 mmol/L Normal 7-17 [facility] Comment on above: Performed By: #### NATHANIEL RAMÍREZ, HFP ####[facility] (DEFAULT)[address] [place] [address] Chloride [Moles/Vol] 104 mmol/L Normal 98-108 [facility] Comment on above: Performed By: #### NATHANIEL RAMÍREZ, HFP ####[facility] (DEFAULT)[address] [facility] [place] [address] CO2 [Moles/Vol] 18 mmol/L Low 21-31 [facility] Comment on above: Performed By: #### NATHANIEL RAMÍREZ, HFP ####[facility] (DEFAULT)[address] [place] [address] Creatinine [Mass/Vol] 1.22 mg/dL Normal 0.70-1.30 [facility] Comment on above: Performed By: #### NATHANIEL RAMÍREZ, HFP ####[facility] (DEFAULT)[address] [facility] [place] [address] GFR/1.73 sq M.predicted among non-blacks MDRD (S/P/Bld) [Vol rate/Area] 71 mL/min/{1.73_m2} Normal >=60 [facility] Comment on above: Result Comment: Repo rted eGFR is based on the CKD-EPI 2020 equation using creatinine, age, and sex. Performed By: #### NATHANIEL RAMÍREZ, HFP ####[facility] (DEFAULT)[address] [place] [address] Glucose [Mass/Vol] 124 mg/dL High 70-99 [facility] Comment on above: Performed By: #### NATHANIEL RAMÍREZ, HFP ####[facility] (DEFAULT)[address] [place] [address] Osmolality [Osmolality] 284 mosm/kg Normal 278-305 [facility] Comment on above: Performed By: #### NATHANIEL RAMÍREZ, HFP ####[facility] (DEFAULT)[address] [place] [address] Potassium [Moles/Vol] 3.9 mmol/L Normal 3.5-5.0 [facility] Comment on above: Performed By: #### NATHANIEL RAMÍREZ, HFP ####[facility] (DEFAULT)[address] [place] [address] Sodium [Moles/Vol] 134 mmol/L Low 135-145 [facility] Comment on above: Performed By: #### NATHANIEL RAMÍREZ, HFP ####[facility] (DEFAULT)[address] [place] [address] Urea nitrogen [Mass/Vol] 15 mg/dL Normal 7-25 [facility] Comment on above: Performed By: #### NATHANIEL RAMÍREZ, HFP ####[facility] (DEFAULT)[address] [place] [address] Urea nitrogen/Creatinine [Mass ratio] 12 mg/mg Normal [facility] Comment on above: Performed By: #### NATHANIEL RAMÍREZ, HFP ####[facility] (DEFAULT)[address] [place] [address] CMV PCR,FLUIDS,URINE,EYE ETC on 09-04-2023 Specimen source Nom (Unsp spec) BAL LLL [facility] Specimen source Nom (Unsp spec) BAL RML [facility] HEPATIC FUNCTION PANELon Albumin [Mass/Vol] 3.0 g/dL Low 3.5 - 5.0 g/dL [facility] ALP [Catalytic activity/Vol] 112 U/L 32 - 126 U/L [facility] ALT [Catalytic activity/Vol] 22 U/L 10 - 52 U/L [facility] AST [Catalytic activity/Vol] 30 U/L 10 - 39 U/L [facility] Bilirubin [Mass/Vol] 1.2 mg/dL NINF - 1.5 mg/dL [facility] Bilirubin.direct [Mass/Vol] 0.4 mg/dL High NINF - 0.3 mg/dL [facility] Protein [Mass/Vol] 6.4 g/dL 6.4 - 8.3 g/dL [facility] Albumin [Mass/Vol] 3.0 g/dL Low 3.5-5.0 [facility] Comment on above: Performed By: #### M MERLE, CHM7, HFP ####[facility] (DEFAULT)[address] [place] [address] ALP [Catalytic activity/Vol] 112 U/L Normal 32-126 [facility] Comment on above: Performed By: #### M MERLE, CHM7, HFP ####[facility] (DEFAULT)[address] [place] [address] ALT [Catalytic activity/Vol] 22 U/L Normal 10-52 [facility] Comment on above: Performed By: #### M GO, CHM7, HFP ####[facility] (DEFAULT)[address] [place] [address] AST [Catalytic activity/Vol] 30 U/L Normal 10-39 [facility] Comment on above: Performed By: #### M GO, CHM7, HFP ####[facility] (DEFAULT)[address] [place] [address] Bilirubin [Mass/Vol] 1.2 mg/dL Normal <1.5 [facility] Comment on above: Performed By: #### M GO, CHM7, HFP ####[facility] (DEFAULT)[address] [place] [address] Bilirubin.indirect [Mass/Vol] 0.4 mg/dL High <0.3 [facility] Comment on above: Performed By: #### M NATHANIEL BLOOM, [facility] ####[facility] (DEFAULT)[address] [facility] [place] [address] Protein [Mass/Vol] 6.4 g/dL Normal 6.4-8.3 [facility] Comment on above: Performed By: #### NATHANIEL RAMÍREZ, [facility] ####[facility] (DEFAULT)[address] [facility] [place] [address] LEGIONELLA PCRon 09-04-2023 Legionella sp rRNA Probe Ql (Unsp spec) Negative Not Applicable [facility] Specimen source Nom (Unsp spec) BAL RML [facility] - Microbiology an d Antimicrobial susceptibilityon 09-04-2023 CMV DNA ESTELITA+probe Ql (Unsp spec) Negative Negative [facility] MAGNESIUMon 09-04-2023 Magnesium [Mass/Vol] 1.4 mg/dL Low 1.6 - 2 .6 mg/dL [facility] Magnesium [Mass/Vol] 1.4 mg/dL Low 1.6-2.6 [facility] Comment on above: Performed By: #### NATHANIEL RAMRÍEZ, [facility] ####[facility] (DEFAULT)[address] [facility] [place] [address] No Panel Informationon 09-04 Annotation comment [Interpretation] Narrative DNR [facility] PN Report Status DNR [facility] Pneumocystis jiroveci,PCR result Negative Not Applicable [facility] Interpretation and review of laboratory results Abnormal [facility] PNEUMOCYSTIS JIROVECI,PCRon 09-04-2023 Specimen source Nom (Unsp spec) BAL LLL [facility] Specimen source Nom (Unsp spec) BAL RML [facility] Portable XR Chest Viewson RADIOLOGY RADIOLOGY [facility] Radiology Study observation (narrative) [facility] Portable XR Chest ViewsOrder ed By: Joanie Nugent on 09-04-2023 [facility] Work Phone: TACROLIMUS LEVEL, TROUGH (DC E DRUG LEVEL)on 09-04-2023 Interpretation and review of laboratory results Abnormal [facility] Tacrolimus (Bld) [Mass/Vol] 3.6 ng/mL Low [facility] Tacrolimus, Trough 3.6 ng/mL Low Bone Susana ow Transplant: 4.0-12.0, Therapeutic: 5.0-15.0 [facility] Comment on above: Order Comment: Pleas e draw at specified interval PRIOR to dose. Do not hold dose to wait for level. Specimens batched twice per day, (M-F) and once per day weekendsMethod performed is a chemiluminescent microparticle immunoasssay on the [employer] Mercerizer i2000.The range is based on experience at [facility] and users should be aware that target concentrations vary widely depending on concomitant therapy, time post-transplant, and desired degree of immunosuppression. Performed By: #### T ACRO ####[facility] (DEFAULT)[address] [place] [address] XR CHEST PORTABLEon 09-04-20 23 XR CHEST PORTABLE [facility] ASPERGILLUS ANTIGEN, BALon 1 Galactomannan Ag IA Qn (Unsp spec) <0.500 [facility] Galactomannan Ag IA Qn (Unsp spec) <0.500 [facility] BAL CONSULTOrdered By: Noa Peralta on 09-03-2023 ALVEOLAR MACROPHAGES 32 % [facility] Work Phone: Bal comments Correlation with microbiology stains and cultures is recommended. [facility] Work Phone: Bal Diff Quik Stain Quality Check Acceptable [facility] Work Phone: BKR BAL INTERPRETATION Cellular specimen comprised of alveolar macrophages and small lymphocytes. No definitive microorganisms are observed. Moderate degenerative changes. [facility] Work Phone: BKR DX CODE Use Ordering [facility] Work Phone: Eosinophils Patterson stain Ql (Unsp spec) 0 % [facility] Work Phone: Lymphocytes/100 WBC (Bld) 57 % [facility] Work Phone: Neutrophils/100 WBC Manual cnt (Bronch spec) 11 % [facility] Work Phone: Pathologist review Jame (Unsp spec) [Interp] Leonardo Peralta MD [facility] Work Phone: [facility] Work Phone: BAL CONSULTon 09-03-2023 ALVEOLAR MACROPHAGES 33 % [facility] Bal comments Correlation with microbiology stains and cultures is recommended. Correlation with viral studies is recommended. [facility] Bal Diff Quik Stain Quality Check Acceptable [facility] BKR BAL INTERPRETATION Cellular specimen comprised of alveolar macrophages and small lymphocytes. No definitive microorganisms are observed. Rare degenerating cells with changes suggestive of viral cytopathic effect are noted. Moderate degenerative changes. [facility] BKR DX CODE Use Ordering [facility] Eosinophils Patterson stain Ql (Unsp spec) 0 % [facility] Lymphocytes/100 WBC (Bld) 49 % [facility] Neutrophils/100 WBC Manual cnt (Bronch spec) 18 % [facility] Pathologist review Jame (Unsp spec) [Interp] Leonardo Peralta MD [facility] BRONCHOSCOPYon 09-03-2023 LAB, [facility] CBC,PLATELETSon 09-03-2023 Erythrocyte distribution width (RBC) [Ratio] 13.4 % 10.9 - 14.3 % [facility] Hematocrit (Bld) [Volume fraction] 39.6 % 39.6 - 48.8 % [facility] Hemoglobin (Bld) [Mass/Vol] 12.8 g/dL Low 13.4 - 16.8 g/dL [facility] Interpretation and review of laboratory results Abnormal [facility] MCH (RBC) [Entitic mass] 27.8 pg 26.1 - 33.3 pg [facility] MCHC (RBC) [Mass/Vol] 32.3 g/dL 31.9 - 36.5 g/dL [facility] MCV (RBC) [Entitic vol] 85.9 fL 79.0 - 94.5 fL [facility] Platelet mean volume (Bld) [Entitic vol] 9.4 fL 8.7 - 12.3 fL [facility] Platelets (Bld) [#/Vol] 222 10*3/uL 146 - 337 K/uL [facility] RBC (Bld) [#/Vol] 4.61 10*6/uL [facility] WBC (Bld) [#/Vol] 4.36 10*3/uL 3.73 - 10. 10 K/uL [facility] Hematocrit (Bld) [Volume fraction] 39.6 % Normal 39.6-48.8 [facility] Comment on above: Performed By: #### H [facility] [place] ####[facility] (DEFAULT)[address] [place] [address] Hemoglobin (Bld) [Mass/Vol] 12.8 g/dL Low 13.4-16.8 [facility] Comment on above: Performed By: #### H [facility] ####[facility] (DEFAULT)[address] [place] [address] MCV (RBC) [Entitic vol] 85.9 fL Normal 79.0-94.5 [facility] Comment on above: Performed By: #### H [facility] [place] ####[facility] (DEFAULT)[address] [place] [address] Mean Cell Hgb 27.8 pg Normal 26.1-33.3 [facility] Comment on above: Performed By: #### H EMOGC ####[facility] (DEFAULT)[address] [place] [address] Mean Cell Hgb Conc 32.3 g/dL Normal 31.9-36.5 [facility] Comment on above: Performed By: #### H EMOGC ####[facility] (DEFAULT)[address] [place] [address] Platelet mean volume (Bld) [Entitic vol] 9.4 fL Normal 8.7-12.3 [facility] Comment on above: Performed By: #### H EMOGC ####[facility] (DEFAULT)[address] [place] [address] Platelets (Bld) [#/Vol] 222 10*3/uL Normal 146-337 [facility] Comment on above: Performed By: #### H EMOGC ####[facility] (DEFAULT)[address] [facility] [place] [address] RBC (Bld) [#/Vol] 4.61 10*6/uL Normal 4.38-5.83 [facility] Comment on above: Performed By: #### H EMOGC ####[facility] (DEFAULT)[address] [place] [address] RBC Distribution 13.4 % Normal 10.9-14.3 [facility] Comment on above: Performed By: #### H EMOGC ####[facility] (DEFAULT)[address] [place] [address] WBC (Bld) [#/Vol] 4.36 10*3/uL Normal 3.73-10.10 [facility] Comment on above: Performed By: #### H EMOGC ####[facility] (DEFAULT)[address] [place] [address] CHEM 7 (LYTES,BUN,CREA,GLUC) on 09-03-2023 Anion gap [Moles/Vol] 12 mmol/L 7 - 17 mmol/L [facility] Chloride [Moles/Vol] 104 mmol/L 98 - 10 8 mmol/L [facility] CO2 [Moles/Vol] 24 mmol/L 21 - 31 mmol/L [facility] Creatinine [Mass/Vol] 1.20 mg/dL 0.70 - 1.30 mg/dL [facility] eGFR, CKD-EPI, Male 73 - PINF [facility] Glucose [Mass/Vol] 112 mg/dL High 70 - 99 mg/dL [facility] Osmolality Calc [Osmolality] 288 [facility] Potassium [Moles/Vol] 4.1 mmol/L 3.5 - 5.0 mmol/L [facility] Sodium [Moles/Vol] 136 mmol/L 135 - 145 mmol/L [facility] Urea nitrogen [Mass/Vol] 17 mg/dL 7 - 25 mg/dL [facility] Urea nitrogen/Creatinine [Mass ratio] 14 mg/mg [facility] Anion gap [Moles/Vol] 12 mmol/L Normal 7-17 [facility] Comment on above: Performed By: #### NATHANIEL RAMÍREZ, HFP ####[facility] (DEFAULT)[address] [place] [address] Chloride [Moles/Vol] 104 mmol/L Normal 98-108 [facility] Comment on above: Performed By: #### NATHANIEL RAMÍREZ, HFP ####[facility] (DEFAULT)[address] [place] [address] CO2 [Moles/Vol] 24 mmol/L Normal 21-31 [facility] Comment on above: Performed By: #### NATHANIEL RAMÍREZ, HFP ####[facility] (DEFAULT)[address] [place] [address] Creatinine [Mass/Vol] 1.20 mg/dL Normal 0.70-1.30 [facility] Comment on above: Performed By: #### NATHANIEL RAMÍREZ, HFP ####[facility] (DEFAULT)[address] [place] [address] GFR/1.73 sq M.predicted among non-blacks MDRD (S/P/Bld) [Vol rate/Area] 73 mL/min/{1.73_m2} Normal >=60 [facility] Comment on above: Result Comment: Repo rted eGFR is based on the CKD-EPI 2020 equation using creatinine, age, and sex. Performed By: #### NATHANIEL RAMÍREZ, HFP ####[facility] (DEFAULT)[address] [place] [address] Glucose [Mass/Vol] 112 mg/dL High 70-99 [facility] Comment on above: Performed By: #### NATHANIEL RAMÍREZ, HFP ####[facility] (DEFAULT)[address] [place] [address] Osmolality [Osmolality] 288 mosm/kg Normal 278-305 [facility] Comment on above: Performed By: #### NATHANIEL RAMÍREZ, HFP ####[facility] (DEFAULT)[address] [place] [address] Potassium [Moles/Vol] 4.1 mmol/L Normal 3.5-5.0 [facility] Comment on above: Performed By: #### NATHANIEL RAMÍREZ, HFP ####[facility] (DEFAULT)[address] [place] [address] Sodium [Moles/Vol] 136 mmol/L Normal 135-145 [facility] Comment on above: Performed By: #### NATHANIEL RAMÍREZ, HFP ####[facility] (DEFAULT)[address] [place] [address] Urea nitrogen [Mass/Vol] 17 mg/dL Normal 7-25 [facility] Comment on above: Performed By: #### NATHANIEL RAMÍREZ, HFP ####[facility] (DEFAULT)[address] [place] [address] Urea nitrogen/Creatinine [Mass ratio] 14 mg/mg Normal [facility] Comment on above: Performed By: #### M HELEN BLOOMM7, HFP ####[facility] (DEFAULT)[address] [place] [address] CYTOLOGY, NON-GYNOrdered By: Sherice Jimenez on 09-03-2023 CYTOLOGIC DIAGNOSIS h5ljmEVsITOqhTZzYBJqQ6lsgdF kHOGtsCCnW4AnoegqSTtgQL7kVI 8dlBywuELmjPXxJZRyVhEiz2rwx 231bDNmf7biQXRCwqpfaNw4a6zm YGZNzY6ha0p7gP93KAOkuC7qhEQ oLJyrneTdUPbvlrHivtYzKto6JR H8kAahThbogAG3eTGpyAP2LOlte 8SdvGhwcYotDGN9ROPwNyijBBtr aPQ5sITafPgskXIdNO5hv9ziiLO 1tuLvVJE4eXbdvXN5jFobrgiga3 cppKW8zQA2NDuwlOU5PJrsXaYcK 1bpNDJyyN1qE26wB2tkUNTpjOzl HRpqIZIlgMG7BDQ4RZCfr5evAHY kvXFzyOAeXhElKTreAwh4b7mxMS XoyN14gILkcqF8zAoaJVcdaSR7P C53OJdks7IkCOAmuLtwJZVklB7j YzIzXGxldmVsbmZjbjIzXGxldmV hffDlBUzmmcUox8KccqOgtTS6KU xjgrGncOQ8wKhrGQNuW5H6S538P JzenwTvgcGsKmMemoz6GZAncJpu bGlzdGxldmVsXGxldmVsbmZjMjN ylRF5NShcAkFrBrOthVK4IZdaTn FhcFV1UClunJLgxFE4CPgvuXH0I Ub8ZAq7LVulBZirNnw9uQbcoQM1 TVqecE3pHMJhI84cTbK0d5wlrIQ 8kDK4SRgdyRP6SVjlZeCfV3lgLW HwpF6pC88zH7bkRYKutHejWEurG CIlhHM6UWD3YODmq0wiAZXacCIt mGLnDgGhYRhuNqe4t4cnFUWnuW4 6tQQycmW6vMdnCC36MZspd6SmCO MvqBtgCMNdbI9xWmPxGWpijmNjm mZjbjIzXGxldmVsamMwXGxldmVs y9MmsuLfdKU6JUabtiXdrKP1dIa rDDCaD6M7Z744VFnyttCtutKhZw Tgmnf1NRJceQomyNitlOzplnHiQ XjeegDgynNcIfFhkPQ0UVqmKfHc JvDnqNE9EHuaUqPiqAB2NVrjmAI nrKO4AEpmvJV6IAr2HBp8AYokST tnHkd1gOzjeNS1LGfvlQ2qWIOgN 16zMyD5v1tfxSQ7gNB5UIffbCH6 XOpoFcXcY1bvUZLicP3aG51jS8i gIMQhsLnqPSqlQIIjlJB3AWM9UL Yyq3wtEJOezZFjcRCcGwXoVOymG nf1v2egZYInwK72qHZhcdE5eNri XS15QSrbo7WxTQJkaBopLGUndN6 mYzIzXGxldmVsbmZjbjIzXGxldm SkmuNwUCeyivSox4WbddRyqNW7N CuoclQyyDN9jSvgEKFxU3W0G348 KVlxtmMuuzEuFcLciqs7FVGrhKj cbGlzdGxldmVsXGxldmVsbmZjMj MojRB1LIamQqPiDkKnwLY6QBvzO sYtsHL1BSrikUDejVO2MCqqzTO2 GBs7VDl1FYqjEYosQsc6yVochDA 6LYcqnR8xOGAmQ17qQcH5xZ27IV cerPcplA55TBYjsUUbvSEpcCI5L MxjcMpzdD22YMUnhMKnAYtel1Zi UPWwDyS2ZSH1RJRfeCiuuO04WWF qaLHfH263thDcIDotPI68KQIniG TjpgUwNbJjJNSuhAUijIK8WBWfM C3nhhroCDqlFRijYVRragP5OINv fRQjI2CmVWUdKH4mlchtZKG8WGq yUGRbPVP7XaUaGHHky5Tutcv5Sh TihQw9x2crRKLnPQJddIios4gnK QD3TIOboDHnY9ourN5jIUWdFQ8b yrjia3yrQTltHRjwNVRrqMI8rzN 2KBQdbMBdZ3OrcK8yMLBkBCBcym DgvJqtcO8hWkeaslCgYRWmIUKAF uYMQj9UZ6aOSJaKCO0LDWNxEUQX PJyEHUBHAFLYSPyUT6HZAArLKcX hOBBdWMIdA7sRP2pOY2tsCttxMv NzNObiBQZuSxJiB6QtZKAadlbtL FFdUFDRBL3GUFXXCQFQWw0CLCX1 SGGpyzvjgHW6FXtkqpYkjSb9aDX wyUastJ6wRqazrlEsIIKaCPCMso UMKQztU18xrvMhD3AshDUgCUAwM DzqLR89fPOfXCLyiTCoOOd2qS8p LXjbuZwgimZVlRRmyD1fddvgUVj jZjBccGFyXGxpMFxsczBccGFyfQ == [facility] Work Phone: Case Report [facility] Work Phone: Clinical History u5pssZByOXDqzNXtJIPh H6mlbnC rDRHwzBBdV9OizajqLTqoXF5tWY 0xdPxflLZseIIwPPIxQcBfw7lty 226mBWgc7dqXSIXuwcgyKq4vYox S41it4U2JbyiU7nrVLGxDUicOJZ oJXrgrTTcZWm8HJAndTJwvhKbBl KrCCVljAKvuOX7JHNpPR8xxocuF PobCMllCVBvihT7AVDgfDGdY7Jg OCOmEY8jgeurNWU4PCylOSAvTQZ 5ZgCjJSDwb5Bwyfu4MgUnnRf7h7 aeGISqTOYrnCjjq5wnFRO5SDIyf ZPaO3yjjL7jDJFjBQ5nqstni2vd VMtbYHykEIRdqMM4meD0OIUgaWL kK4WfmP2gFCBuZOQhuuBgaJdluN 5cZnMyMFxjZjEgUmVuYWwgdHJhb bHjwEUsaE9iTFAejx6= [facility] Work Phone: For Immediate Release to Patient's MyChart? Yes Yes [facility] Work Phone: Gross Description t4jnpTDkECPmpCEzQVXx S7hfmrL oOQPzsCPnV6CoyssoCOraPF5qBE 0yoOagbGCdbAEzIACeSkMrk5hzj 149eNEgt2lkYESAhwlsoCm9rQtj Z46sk3X7MatoP57mvVAsKZZ6OFS cENFesSKaPWWpVIU1QDZwwQCpL6 baQUViZU9phewnSFbsPUlqUAKlq DO3AKXtcQKsP2MtVPPtUIjxXAUk jii7XbMgLa1caFFudVzgSUneIIX kXHBsYWluXGZzMjAgTExMIEJBTF whUHFlCLCpoXLhVUm7GPImvT1lw IWaofJaoBHfnO8meDhoGTgtVMIi OJWQRNQjuRsqGEWSRZCjt5DklU1 ccGFyXHBhcmRccGFyXHBhcn0= [facility] Work Phone: [facility] Work Phone: HEPATIC FUNCTION PANELon Albumin [Mass/Vol] 3.2 g/dL Low 3.5 - 5.0 g/dL [facility] ALP [Catalytic activity/Vol] 118 U/L 32 - 126 U/L [facility] ALT [Catalytic activity/Vol] 25 U/L 10 - 52 U/L [facility] AST [Catalytic activity/Vol] 32 U/L 10 - 39 U/L [facility] Bilirubin [Mass/Vol] 1.0 mg/dL [facility] Bilirubin.direct [Mass/Vol] 0.3 mg/dL High NINF - 0.3 mg/dL [facility] Protein [Mass/Vol] 6.5 g/dL 6.4 - 8.3 g/dL [facility] Albumin [Mass/Vol] 3.2 g/dL Low 3.5-5.0 [facility] Comment on above: Performed By: #### M NATHANIEL BLOOM, HFP ####[facility] (DEFAULT)[address] [place] [address] ALP [Catalytic activity/Vol] 118 U/L Normal 32-126 [facility] Comment on above: Performed By: #### M NATHANIEL BLOOM, HFP ####[facility] (DEFAULT)[address] [place] [address] ALT [Catalytic activity/Vol] 25 U/L Normal 10-52 [facility] Comment on above: Performed By: #### M HELEN BLOOMM7, HFP ####[facility] (DEFAULT)[address] [place] [address] AST [Catalytic activity/Vol] 32 U/L Normal 10-39 [facility] Comment on above: Performed By: #### Rod BLOOM CHM7, HFP ####[facility] (DEFAULT)[address] [place] [address] Bilirubin [Mass/Vol] 1.0 mg/dL Normal <1.5 [facility] Comment on above: Performed By: #### TJ RAMÍREZ7, HFP ####[facility] (DEFAULT)[address] [place] [address] Bilirubin.indirect [Mass/Vol] 0.3 mg/dL High <0.3 [facility] Comment on above: Performed By: #### Rod BLOOM CHM7, HFP ####[facility] (DEFAULT)[address] [place] [address] Protein [Mass/Vol] 6.5 g/dL Normal 6.4-8.3 [facility] Comment on above: Performed By: #### Rod BLOOM CHM7, HFP ####[facility] (DEFAULT)[address] [facility] [address] HISTOPLASMA AND BLASTOMYCES ANTIGEN, ENZYME IMMUNOASSAY, SERMon 09-03-2023 Histoplasma/Blastomy antonia Ag Result Detected Critically abnormal Not Detected [facility] Histoplasma/Blastomy antonia Ag Value 5.3 ng/mL [facility] Interpretation and review of laboratory results Abnormal [facility] IMMUNOPHENOTYPING, TISSUE/FL UIDon 09-03-2023 BKR DX CODE Use Ordering Normal [facility] Comment on above: Order Comment: Plejoan e lab add on to specimen collected yesterdayIMMUNOPHENOTYPING DIAGNOSISPATIENT NAME: GEORGE MORRISONBerlin: 1970MRN: [id number]#: [id number] BY: Yossi Perla M.D,, Ph.D. [id number] TYPE: Bronchial Alveolar LavageLABORATORY INTERPRETATION:There is no [...] performance characteristicsdetermined The Flow Cytometry Laboratory at [facility]. It has notbeen cleared or approved by the FDA. This laboratory is certifiedunder the Clinical Laboratory Improvement Amendments (CLIA)as qualified to perform high complexity clinical laboratorytesting. This test is used for clinical purposes. It should notbe regarded as investigational or for research.The [facility] Flow Cytometry Laboratory lower limitof CLL MRD detection is 0.1% of the gated lymphocytes. Performed By: #### G IPP ####[facility] (DEFAULT)[address] [place] [address] Flow Interpretation See Comment Normal [facility] Comment on above: Order Comment: Pleas e lab add on to specimen collected yesterdayIMMUNOPHENOTYPING DIAGNOSISPATIENT NAME: GEORGE SLATER: 1970MRN: [id number]#: [id number] BY: Yossi Perla M.D,, Ph.D. [id number] TYPE: Bronchial Alveolar LavageLABORATORY INTERPRETATION:There is no [...] performance characteristicsdetermined The Flow Cytometry Laboratory at [facility]. It has notbeen cleared or approved by the FDA. This laboratory is certifiedunder the Clinical Laboratory Improvement Amendments (CLIA)as qualified to perform high complexity clinical laboratorytesting. This test is used for clinical purposes. It should notbe regarded as investigational or for research.The [facility] Flow Cytometry Laboratory lower limitof CLL MRD detection is 0.1% of the gated lymphocytes. Performed By: #### G IPP ####[facility] (DEFAULT)[address] [place] [address] Flow Interpreted by: Yossi Perla MD, PhD [facility] Comment on above: Order Comment: Pleas e lab add on to specimen collected yesterdayIMMUNOPHENOTYPING DIAGNOSISPATIENT NAME: GEORGE SLATER: 1970MRN: [id number]#: [id number] BY: Yossi Perla M.D,, Ph.D. [id number] TYPE: Bronchial Alveolar LavageLABORATORY INTERPRETATION:There is no [...] performance characteristicsdetermined The Flow Cytometry Laboratory at [facility]. It has notbeen cleared or approved by the FDA. This laboratory is certifiedunder the Clinical Laboratory Improvement Amendments (CLIA)as qualified to perform high complexity clinical laboratorytesting. This test is used for clinical purposes. It should notbe regarded as investigational or for research.The [facility] Flow Cytometry Laboratory lower limitof CLL MRD detection is 0.1% of the gated lymphocytes. Performed By: #### G IPP ####[facility] (DEFAULT)[address] [place] [address] MAGNESIUMon 09-03-2023 Interpretation and review of laboratory results Normal [facility] Magnesium [Mass/Vol] 1.6 mg/dL 1.6 - 2 .6 mg/dL [facility] Magnesium [Mass/Vol] 1.6 mg/dL Normal 1.6-2.6 [facility] Comment on above: Performed By: #### M GO, CHM7, HFP ####[facility] (DEFAULT)[address] [place] [address] No Panel Informationon 09-03 Interpretation and review of laboratory results Abnormal [facility] PARVOVIRUS (B19) DNA, PCR, B LOODon 09-03-2023 PARVOVIRUS B19 BY RAPID PCR Not detected Not Detected [facility] DC SPEC SOURCE Whole Blood [facility] Portable XR Chest Viewson RADIOLOGY RADIOLOGY [facility] Radiology Study observation (narrative) [facility] Portable XR Chest ViewsOrder ed By: Lester Grove on 09-03-2023 [facility] Work Phone: XR CHEST PORTABLEon 09-03-20 23 XR CHEST PORTABLE [facility] ACID FAST CULTUREon 09-02-20 Bacteria identified Cx Nom (Unsp spec) NO GROWTH DAY 42 OF 42 Normal [facility] Comment on above: Performed By: #### A FB ####[facility] (DEFAULT)[address] [place] [address] Fluorochrome Stain No acid Fast Bacillus Seen Normal [facility] Comment on above: Performed By: #### A FB ####[facility] (DEFAULT)[address] [place] [address] Bacteria identified Cx Nom (Unsp spec) NO GROWTH DAY 42 OF 42 Normal [facility] Comment on above: Order Comment: BAL A FB culture. Clinical suspicion for non-tuberculous mycobacteria Performed By: #### A FB ####[facility] (DEFAULT)[address] [place] [address] Fluorochrome Stain No acid Fast Bacillus Seen Normal [facility] Comment on above: Order Comment: BAL A FB culture. Clinical suspicion for non-tuberculous mycobacteria Performed By: #### A FB ####[facility] (DEFAULT)[address] [place] [address] ASPERGILLUS (GALACTOMANNAN), ANTIGENon 09-02-2023 Galactomannan Ag IA Qn <0.500 NINF [facility] ASPERGILLUS ANTIGEN, BALon 1 0 Aspergillus Galactomannan Antigen, BAL <0.500 Normal <0.5 [facility] Comment on above: Result Comment: ---- ADDITIONAL INFORMATION This is a qualitative test and the resulted index value isnot indicative of disease severity. Serial testing isrecommended for patients at high risk for invasiveaspergillosis.This assay was performed using the FDA-cleared [employer] Aspergillus Galactomannan EIA.Test Performed by:[address] [id number] Director: Rosendo Bose M.D. Ph.D.; CLIA# [id number] Performed By: #### X ASGFL ####[facility] (DEFAULT)[address] [place] [address] Aspergillus Galactomannan Antigen, BAL <0.500 Normal <0.5 [facility] Comment on above: Order Comment: BAL a spirgillus antigen Result Comment: ---- ADDITIONAL INFORMATION This is a qualitative test and the resulted index value isnot indicative of disease severity. Serial testing isrecommended for patients at high risk for invasiveaspergillosis.This assay was performed using the FDA-cleared [employer] Aspergillus Galactomannan EIA.Test Performed by:[facility] [place] [id number] Director: Rosendo Bose M.D. Ph.D.; CLIA# [id number] Performed By: #### X ASGFL ####[facility] (DEFAULT)[address] [place] [address] ATYPICAL BACTERIAL PNEUMONIA ,PCROrdered By: Shari Contreras on 09-02-2023 B. parapertussis DNA ESTELITA+probe Ql (Unsp spec) Not detected Not Detected [facility] B. pertussis DNA ESTELITA+probe Ql (Unsp spec) Not detected Not Detected [facility] C. pneumoniae DNA ESTELITA+probe Ql (Unsp spec) Not detected Not Detected [facility] Interpretation and review of laboratory results Normal [facility] M. pneumoniae DNA ESTELITA+probe Ql (Unsp spec) Not detected Not Detected [facility] ATYPICAL BACTERIAL PNEUMONIA ,PCRon 09-02-2023 Bordetella Parapertussis Not detected Normal Not Detected [facility] Comment on above: Order Comment: Viral [...] by The Clinical Microbiology Laboratory at [facility]. It has not been cleared or approved by the FDA. The laboratory is required under CLIA as qualified to perform high-complexity testing. This test is used for clinical purposes. It should not be regarded as investigational or for research. Performed By: #### A TYPNE ####[facility] (DEFAULT)[address] [address] Bordetella Pertussis Not detected Normal Not Detected [facility] Comment on above: Order Comment: Viral [...] by The Clinical Microbiology Laboratory at [facility]. It has not been cleared or approved by the FDA. The laboratory is required under CLIA as qualified to perform high-complexity testing. This test is used for clinical purposes. It should not be regarded as investigational or for research. Performed By: #### A TYPNE ####[facility] (DEFAULT)[address] [place] [address] Chlamydia Pneumoniae Not detected Normal Not Detected [facility] Comment on above: Order Comment: Viral [...] by The Clinical Microbiology Laboratory at [facility]. It has not been cleared or approved by the FDA. The laboratory is required under CLIA as qualified to perform high-complexity testing. This test is used for clinical purposes. It should not be regarded as investigational or for research. Performed By: #### A RENAN ####[facility] (DEFAULT)[address] [place] [address] Mycoplasma Pneumoniae Not detected Normal Not Detected [facility] Comment on above: Order Comment: Viral [...] by The Clinical Microbiology Laboratory at [facility]. It has not been cleared or approved by the FDA. The laboratory is required under CLIA as qualified to perform high-complexity testing. This test is used for clinical purposes. It should not be regarded as investigational or for research. Performed By: #### A TYPNE ####[facility] (DEFAULT)[address] [place] [address] BAL CONSULTon 09-02-2023 ALVEOLAR MACROPHAGES 33 % Normal [facility] Comment on above: Order Comment: BAL c onsultIf > 15% lymphocytes - please send for flow. Performed By: #### B ALC ####[facility] (DEFAULT)[address] [place] [address] Bal comments Correlation with microbiology stains and cultures is recommended. Correlation with viral studies is recommended. Normal [facility] Comment on above: Order Comment: BAL c onsultIf > 15% lymphocytes - please send for flow. Performed By: #### B ALC ####[facility] (DEFAULT)[address] [place] [address] Bal Diff Quik Stain Quality Check Acceptable Normal [facility] Comment on above: Order Comment: BAL c onsultIf > 15% lymphocytes - please send for flow. Performed By: #### B ALC ####[facility] (DEFAULT)[address] [place] [address] Bal Reviewed By: Loenardo Peralta MD Normal [facility] Comment on above: Order Comment: BAL c onsultIf > 15% lymphocytes - please send for flow. Performed By: #### B ALC ####[facility] (DEFAULT)[address] [place] [address] BKR BAL INTERPRETATION Cellular specimen comprised of alveolar macrophages and small lymphocytes. No definitive microorganisms are observed. Rare degenerating cells with changes suggestive of viral cytopathic effect are noted. Moderate degenerative changes. Normal [facility] Comment on above: Order Comment: BAL c onsultIf > 15% lymphocytes - please send for flow. Performed By: #### B ALC ####[facility] (DEFAULT)[address] [place] [address] BKR DX CODE Use Ordering Normal [facility] Comment on above: Order Comment: BAL c onsultIf > 15% lymphocytes - please send for flow. Performed By: #### B ALC ####[facility] (DEFAULT)[address] [facility] [place] [address] Eosinophils/100 WBC (Bld) 0 % Normal [facility] Comment on above: Order Comment: BAL c onsultIf > 15% lymphocytes - please send for flow. Performed By: #### B ALC ####[facility] (DEFAULT)[address] [facility] [place] [facility] [place] [address] Lymphocytes/100 WBC (Bld) 49 % Normal [facility] Comment on above: Order Comment: BAL c onsultIf > 15% lymphocytes - please send for flow. Performed By: #### B ALC ####[facility] (DEFAULT)[address] [facility] [place] [address] Neutrophils/100 WBC (Bld) 18 % Normal [facility] Comment on above: Order Comment: BAL c onsultIf > 15% lymphocytes - please send for flow. Performed By: #### B ALC ####[facility] (DEFAULT)[address] [facility] [place] [address] ALVEOLAR MACROPHAGES 32 % Normal [facility] Comment on above: Order Comment: BAL c onsult for cell differential and pathologist review. Please do flow cytometry if > 12% lymphocytes Performed By: #### B ALC ####[facility] (DEFAULT)[address] [facility] [place] [address] Bal comments Correlation with microbiology stains and cultures is recommended. Normal [facility] Comment on above: Order Comment: BAL c onsult for cell differential and pathologist review. Please do flow cytometry if > 12% lymphocytes Performed By: #### B ALC ####[facility] (DEFAULT)[address] [facility] [place] [address] Bal Diff Quik Stain Quality Check Acceptable Normal [facility] Comment on above: Order Comment: BAL c onsult for cell differential and pathologist review. Please do flow cytometry if > 12% lymphocytes Performed By: #### B ALC ####[facility] (DEFAULT)[address] [facility] [place] [address] Bal Reviewed By: Leonardo Peralta MD [facility] Comment on above: Order Comment: BAL c onsult for cell differential and pathologist review. Please do flow cytometry if > 12% lymphocytes Performed By: #### B ALC ####[facility] (DEFAULT)[address] [facility] [place] [address] BKR BAL INTERPRETATION Cellular specimen comprised of alveolar macrophages and small lymphocytes. No definitive microorganisms are observed. Moderate degenerative changes. Normal [facility] Comment on above: Order Comment: BAL c onsult for cell differential and pathologist review. Please do flow cytometry if > 12% lymphocytes Performed By: #### B ALC ####[facility] (DEFAULT)[address] [facility] [place] [address] BKR DX CODE Use Ordering Normal [facility] Comment on above: Order Comment: BAL c onsult for cell differential and pathologist review. Please do flow cytometry if > 12% lymphocytes Performed By: #### B ALC ####[facility] (DEFAULT)[address] [facility] [place] [address] Eosinophils/100 WBC (Bld) 0 % Normal [facility] Comment on above: Order Comment: BAL c onsult for cell differential and pathologist review. Please do flow cytometry if > 12% lymphocytes Performed By: #### B ALC ####[facility] (DEFAULT)[address] [facility] [place] [address] Lymphocytes/100 WBC (Bld) 57 % Normal [facility] Comment on above: Order Comment: BAL c onsult for cell differential and pathologist review. Please do flow cytometry if > 12% lymphocytes Performed By: #### B ALC ####[facility] (DEFAULT)[address] [facility] [place] [address] Neutrophils/100 WBC (Bld) 11 % Normal [facility] Comment on above: Order Comment: BAL c onsult for cell differential and pathologist review. Please do flow cytometry if > 12% lymphocytes Performed By: #### B ALC ####[facility] (DEFAULT)[address] [facility] [place] [address] BRONCHOSCOPYon 09-02-2023 Radiology Study observation (narrative) [facility] Bacteria identified Cx Nom ( Bld)on 09-02-2023 Bacteria identified Cx Nom (Unsp spec) NO GROWTH DAY 5 OF 5 [facility] CBC,PLATELETSon 09-02-2023 Erythrocyte distribution width (RBC) [Ratio] 13.2 % 10.9 - 14.3 % [facility] Hematocrit (Bld) [Volume fraction] 39.9 % 39.6 - 48.8 % [facility] Hemoglobin (Bld) [Mass/Vol] 12.9 g/dL Low 13.4 - 16.8 g/dL [facility] Interpretation and review of laboratory results Abnormal [facility] MCH (RBC) [Entitic mass] 27.9 pg 26.1 - 33.3 pg [facility] MCHC (RBC) [Mass/Vol] 32.3 g/dL 31.9 - 36.5 g/dL [facility] MCV (RBC) [Entitic vol] 86.4 fL 79.0 - 94.5 fL [facility] Platelet mean volume (Bld) [Entitic vol] 9.5 fL 8.7 - 12.3 fL [facility] Platelets (Bld) [#/Vol] 210 10*3/uL 146 - 337 K/uL [facility] RBC (Bld) [#/Vol] 4.62 10*6/uL [facility] WBC (Bld) [#/Vol] 4.12 10*3/uL 3.73 - 10. 10 K/uL [facility] Hematocrit (Bld) [Volume fraction] 39.9 % Normal 39.6-48.8 [facility] Comment on above: Performed By: #### H EMOGC ####[facility] (DEFAULT)[address] [place] [address] Hemoglobin (Bld) [Mass/Vol] 12.9 g/dL Low 13.4-16.8 [facility] Comment on above: Performed By: #### H EMOGC ####[facility] (DEFAULT)[address] [place] [address] MCV (RBC) [Entitic vol] 86.4 fL Normal 79.0-94.5 [facility] Comment on above: Performed By: #### H EMOGC ####[facility] (DEFAULT)[address] [facility] [place] [address] Mean Cell Hgb 27.9 pg Normal 26.1-33.3 [facility] Comment on above: Performed By: #### H EMOGC ####[facility] (DEFAULT)[address] [place] [address] Mean Cell Hgb Conc 32.3 g/dL Normal 31.9-36.5 [facility] Comment on above: Performed By: #### H EMOGC ####[facility] (DEFAULT)[address] [place] [address] Platelet mean volume (Bld) [Entitic vol] 9.5 fL Normal 8.7-12.3 [facility] Comment on above: Performed By: #### H EMOGC ####[facility] (DEFAULT)[address] [facility] [place] [address] Platelets (Bld) [#/Vol] 210 10*3/uL Normal 146-337 [facility] Comment on above: Performed By: #### H [facility] [place] ####[facility] (DEFAULT)[address] [facility] [place] [address] RBC (Bld) [#/Vol] 4.62 10*6/uL Normal 4.38-5.83 [facility] Comment on above: Performed By: #### H [facility] [place] ####[facility] (DEFAULT)[address] [place] [address] RBC Distribution 13.2 % Normal 10.9-14.3 [facility] Comment on above: Performed By: #### H [facility] [place] ####[facility] (DEFAULT)[address] [place] [address] WBC (Bld) [#/Vol] 4.12 10*3/uL Normal 3.73-10.10 [facility] Comment on above: Performed By: #### [facility] [facility] [place] ####[facility] (DEFAULT)[address] [place] [address] CHEM 7 (LYTES,BUN,CREA,GLUC) on 09-02-2023 Anion gap [Moles/Vol] 13 mmol/L 7 - 17 mmol/L [facility] Chloride [Moles/Vol] 105 mmol/L 98 - 10 8 mmol/L [facility] CO2 [Moles/Vol] 22 mmol/L 21 - 31 mmol/L [facility] Creatinine [Mass/Vol] 1.25 mg/dL 0.70 - 1.30 mg/dL [facility] eGFR, CKD-EPI, Male 69 - PINF [facility] Glucose [Mass/Vol] 105 mg/dL High 70 - 99 mg/dL [facility] Osmolality Calc [Osmolality] 287 [facility] Potassium [Moles/Vol] 4.3 mmol/L 3.5 - 5.0 mmol/L [facility] Sodium [Moles/Vol] 136 mmol/L 135 - 145 mmol/L [facility] Urea nitrogen [Mass/Vol] 16 mg/dL 7 - 25 mg/dL [facility] Urea nitrogen/Creatinine [Mass ratio] 13 mg/mg [facility] Anion gap [Moles/Vol] 13 mmol/L Normal 7-17 [facility] Comment on above: Performed By: #### H FP MGO, CHM7 ####[facility] (DEFAULT)[address] [facility] [place] [address] Chloride [Moles/Vol] 105 mmol/L Normal 98-108 [facility] Comment on above: Performed By: #### H FP, MGO, CHM7 ####[facility] (DEFAULT)[address] [facility] [place] [address] CO2 [Moles/Vol] 22 mmol/L Normal 21-31 [facility] Comment on above: Performed By: #### H FP, MGO, CHM7 ####[facility] (DEFAULT)[address] [facility] [place] [address] Creatinine [Mass/Vol] 1.25 mg/dL Normal 0.70-1.30 [facility] Comment on above: Performed By: #### H FP, MGO, CHM7 ####[facility] (DEFAULT)[address] [facility] [place] [address] GFR/1.73 sq M.predicted among non-blacks MDRD (S/P/Bld) [Vol rate/Area] 69 mL/min/{1.73_m2} Normal >=60 [facility] Comment on above: Result Comment: Repo rted eGFR is based on the CKD-EPI 2020 equation using creatinine, age, and sex. Performed By: #### H FP, MGO, CHM7 ####[facility] (DEFAULT)[address] [facility] [place] [address] Glucose [Mass/Vol] 105 mg/dL High 70-99 [facility] Comment on above: Performed By: #### H ANTWAN MGO CHM7 ####[facility] (DEFAULT)[address] [place] [address] Osmolality [Osmolality] 287 mosm/kg Normal 278-305 [facility] Comment on above: Performed By: #### Lydia MONCADA MGO, CHM7 ####[facility] (DEFAULT)[address] [place] [address] Potassium [Moles/Vol] 4.3 mmol/L Normal 3.5-5.0 [facility] Comment on above: Performed By: #### Lydia MONCADA MGO, CHM7 ####[facility] (DEFAULT)[address] [place] [address] Sodium [Moles/Vol] 136 mmol/L Normal 135-145 [facility] Comment on above: Performed By: #### Lydia MONCADA MGO, CHM7 ####[facility] (DEFAULT)[address] [place] [address] Urea nitrogen [Mass/Vol] 16 mg/dL Normal 7-25 [facility] Comment on above: Performed By: #### Lydia FP, MGO, CHM7 ####[facility] (DEFAULT)[address] [place] [address] Urea nitrogen/Creatinine [Mass ratio] 13 mg/mg Normal [facility] Comment on above: Performed By: #### Lydia FP, MGO, CHM7 ####[facility] (DEFAULT)[address] [place] [address] CMV PCR,FLUIDS,URINE,EYE ETC on 09-02-2023 CMV by PCR Result Negative Normal [facility] Comment on above: Result Comment: ---- ADDITIONAL INFORMATION This test was developed and its performance characteristicsdetermined by [facility] in a manner consistent with CLIArequirements. This test has not been cleared or approved bythe U.S. Food and Drug Administration.Test Performed by:[address] [address]Idt Director: Rosendo Bose M.D. Ph.D.; CLIA# [id number] Performed By: #### Y CMV ####[facility] (DEFAULT)[address] [place] [address] CMV BY PCR SOURCE BAL RML Normal [facility] Comment on above: Performed By: #### Y CMV ####[facility] (DEFAULT)[address] [address] CMV by PCR Result Negative Normal [facility] Comment on above: Result Comment: ---- ADDITIONAL INFORMATION This test was developed and its performance characteristicsdetermined by [facility] in a manner consistent with CLIArequirements. This test has not been cleared or approved bythe U.S. Food and Drug Administration.Test Performed by:[address] [address]Rok Director: Rosendo Bose M.D. Ph.D.; CLIA# [id number] Performed By: #### Y CMV ####[facility] (DEFAULT)[address] [place] [address] CMV BY PCR SOURCE BAL LLL [facility] Comment on above: Performed By: #### Y CMV ####[facility] (DEFAULT)[address] [place] [address] CYTOLOGY, NON-GYNon 09-02-20 23 CYTOLOGIC DIAGNOSIS Normal [facility] Comment on above: Result Comment: A. B RONCHOALVEOLAR LAVAGE, LEFT LOWER LOBE (CYTOLOGY):FINAL DIAGNOSIS:No Malignant Cells Are IdentifiedHypocellular Specimen Performed By: #### N ONJONH ####[facility] (DEFAULT)[address] [address] Case Report Normal [facility] Comment on above: Result Comment: Medi abhishek Cytology Report Case: [id number] Provider: Crow Diaz MD Collected: 09/02/2023 08:38 AMOrdering [facility]: [facility] Received: 09/02/2023 10:44 AMPathologist: KENTON Caglepecimen: BRONCHOALVEOLAR LAVAGE, LLL BAL Performed By: #### N LITZY ####[facility] (DEFAULT)[address] [address] Clinical History Renal transplant. Normal O [facility] Comment on above: Performed By: #### N LITZY ####[facility] (DEFAULT)[address] [place] [address] Gross Description [facility] Comment on above: Result Comment: LLL BAL1 ml hazy colorless fld unfixed1 TP slide Pap stainFor Immediate Release to Patient's MyChart? Yes Performed By: #### N ONGNGRAEMEFNA ####[facility] (DEFAULT)[address] [place] [address] FUNGUS CULTUREon 09-02-2023 Bacteria identified Cx Nom (Unsp spec) Normal [facility] Comment on above: Order Comment: Ident ification was performed on the MALDI-TOF mass spectrometer biotyper. This test was developed by [facility]. It has not been cleared or approved by the FDA. The laboratory is regulated under CLIA as qualified to perform high-complexity testing. This test is used for clinical purposes. It should not be regarded as investigational or for research. Result Comment: Grow [id number] [place] Histoplasma capsulatum Performed By: #### F UN ####[facility] (DEFAULT)[address] [place] [address], [place] [address] Bacteria identified Cx Nom (Unsp spec) NO GROWTH DAY 28 OF 28 Normal [facility] Comment on above: Order Comment: CARRIE oro ungal culture Performed By: #### F UN ####[facility] (DEFAULT)[address] [facility] [place] [address] HEPATIC FUNCTION PANELon Albumin [Mass/Vol] 3.2 g/dL Low 3.5 - 5.0 g/dL [facility] ALP [Catalytic activity/Vol] 107 U/L 32 - 126 U/L [facility] ALT [Catalytic activity/Vol] 20 U/L 10 - 52 U/L [facility] AST [Catalytic activity/Vol] 31 U/L 10 - 39 U/L [facility] Bilirubin [Mass/Vol] 1.0 mg/dL NINF - 1.5 mg/dL [facility] Bilirubin.direct [Mass/Vol] 0.3 mg/dL High NINF - 0.3 mg/dL [facility] Protein [Mass/Vol] 6.6 g/dL 6.4 - 8.3 g/dL [facility] Albumin [Mass/Vol] 3.2 g/dL Low 3.5-5.0 [facility] Comment on above: Performed By: #### H FP, MGO, CHM7 ####[facility] (DEFAULT)[address] [place] [address] ALP [Catalytic activity/Vol] 107 U/L Normal 32-126 [facility] Comment on above: Performed By: #### H FP, MGO, CHM7 ####[facility] (DEFAULT)[address] [place] [address] ALT [Catalytic activity/Vol] 20 U/L Normal 10-52 [facility] Comment on above: Performed By: #### H FP, MGO, CHM7 ####[facility] (DEFAULT)[address] [place] [address] AST [Catalytic activity/Vol] 31 U/L Normal 10-39 [facility] Comment on above: Performed By: #### H DOMENICA MONCADA CHM7 ####[facility] (DEFAULT)[address] [place] [address] Bilirubin [Mass/Vol] 1.0 mg/dL Normal <1.5 [facility] Comment on above: Performed By: #### H ANTWAN MGO, CHM7 ####[facility] (DEFAULT)[address] [place] [address] Bilirubin.indirect [Mass/Vol] 0.3 mg/dL High <0.3 [facility] Comment on above: Performed By: #### H ANTWAN MGO, CHM7 ####[facility] (DEFAULT)[address] [facility] [place] [address] Protein [Mass/Vol] 6.6 g/dL Normal 6.4-8.3 [facility] Comment on above: Performed By: #### H ANTWAN MGO, CHM7 ####[facility] (DEFAULT)[address] [facility] [place] [address] HISTOPLASMA ANTIGEN, FLUIDon 09-02-2023 FH SOURCE BAL RML Normal [facility] Comment on above: Performed By: #### Y FHST ####[facility] [facility] [place] [address] Histo FLD interpretation Negative Normal [facility] Comment on above: Result Comment: ---- ADDITIONAL INFORMATION Reference interval: None DetectedReportable Range: Positive Results reported in ng/mL from0.20 ng/mL to 20.00 ng/mLPositive Results above 20.00 ng/mL are reported as 'Abovethe Limit of Quantification'Cross-reactions occur with Blastomyces spp., Coccidioidesspp., and Paracoccidioides brasiliensis.This test was developed and its performance characteristicsdetermined by [facility]. It has not beencleared or approved by the FDA; however, FDA clearance orapproval is not currently required for clinical use. Theresults are not intended to be used as the sole means forclinical diagnosis or patient management decisions.Test Performed by:[id number] [facility][1] [place] [address] Performed By: #### Y FHST ####[facility] (DEFAULT)[address] [facility] [place] [address] Histoplasma Antigen, FLUID Not detected Normal [facility] Comment on above: Performed By: #### Y FHST ####[facility] (DEFAULT)[address] [place] [address], [place] [address] HISTOPLASMA ANTIGEN,URINEon 09-02-2023 H. capsulatum Ag (U) [Mass/Vol] Not detected ng/mL [facility] H. capsulatum Ag IA Ql (U) Not detected Not Detected [facility] HISTOPLASMA CAPSULATUM/BLAST OMYCES SPECIES,PCR FLUIDon 09-02-2023 HISTO/BLASTO RESULT Negative Normal Not Applicable [facility] Comment on above: Result Comment: A Ne gative result from BAL fluid does not rule out thepresence of Histoplasma capsulatum because the sensitivity from this source is suboptimal. ADDITIONAL INFORMATION This test was developed and its performance characteristicsdetermined by [facility] in a manner consistent with CLIArequirements. This test has not been cleared or approved bythe U.S. Food and Drug Administration.Test Performed by:[address] [address]Kkn Director: Rosendo oBse M.D. Ph.D.; CLIA# [id number] Performed By: #### Y HBRP ####[facility]DEFAULT[facility] [facility] [place] [address] Source BAL RML Normal [facility] Comment on above: Performed By: #### Y HBRP ####[facility] (DEFAULT)[address] [facility] [place] [address] HIV 1 AND 2 ANTIBODIES/P24 A NTIGENOrdered By: Wilma Luque on 09-02-2023 HIV 1+2 Ab+HIV1 p24 Ag IA Ql Non-Reactive Non Reactive [facility] Interpretation and review of laboratory results Normal [facility] HIV 1 AND 2 ANTIBODIES/P24 A NTIGENon 09-02-2023 HIV-1/HIV-2 Ab With p24 Antigen Non-Reactive Normal Non Reactive [facility] Comment on above: Performed By: #### L [id number] ####[facility] (DEFAULT)[address] [facility] [place] [address] LEGIONELLA CULTUREon 023 Bacteria identified Cx Nom (Unsp spec) NO GROWTH DAY 7 OF 7 Normal [facility] Comment on above: Performed By: #### L EGN ####[facility] (DEFAULT)[address] [facility] [place] [address] Bacteria identified Cx Nom (Unsp spec) NO GROWTH DAY 7 OF 7 Normal [facility] Comment on above: Order Comment: BAL l egionella culture Performed By: #### L EGN ####[facility] (DEFAULT)[address] [facility] [place] [address] LEGIONELLA PCRon 09-02-2023 Legionella species, Culture BAL RML Normal [facility] Comment on above: Performed By: #### Y LEGRP ####[facility] (DEFAULT)[address] [facility] [place] [address] Legionella, pcr result Negative Normal Not Applicable [facility] Comment on above: Result Comment: ---- ADDITIONAL INFORMATION This test was developed and its performance characteristicsdetermined by [facility] in a manner consistent with CLIArequirements. This test has not been cleared or approved bythe U.S. Food and Drug Administration.Test Performed by:[address] [address]Azy Director: Rosendo Bose M.D. Ph.D.; CLIA# [id number] Performed By: #### Y LEGRP ####[facility] (DEFAULT)[address] [facility] [place] [address] LOWER RESPIRATORY CULTURE, B ACTERIALon 09-02-2023 Bacteria identified Cx Nom (Unsp spec) NO GROWTH DAY 2 OF 2 Normal [facility] Comment on above: Performed By: #### R ES ####[facility] (DEFAULT)[address] [facility] [place] [address] Microscopic observation Gram stain Nom (Unsp spec) Normal [facility] Comment on above: Result Comment: Cyto centrifuge preparationNeutrophils, RareRed Blood Cells PresentNo organisms seen Performed By: #### R ES ####[facility] (DEFAULT)[address] [facility] [place] [address] Bacteria identified Cx Nom (Unsp spec) NO GROWTH DAY 2 OF 2 Normal [facility] Comment on above: Order Comment: BAL b acterial respiratory culture Performed By: #### R ES ####[facility] (DEFAULT)[address] [facility] [place] [address] Microscopic observation Gram stain Nom (Unsp spec) Normal [facility] Comment on above: Order Comment: BAL b acterial respiratory culture Result Comment: Cyto centrifuge preparationNeutrophils, ModerateRed Blood Cells PresentNo organisms seen Performed By: #### R ES ####[facility] (DEFAULT)[address] [place] [address] MAGNESIUMon 09-02-2023 Interpretation and review of laboratory results Normal [facility] Magnesium [Mass/Vol] 1.7 mg/dL 1.6 - 2 .6 mg/dL [facility] Magnesium [Mass/Vol] 1.7 mg/dL Normal 1.6-2.6 [facility] Comment on above: Performed By: #### H FP, MGO, CHM7 ####[facility] (DEFAULT)[address] [facility] [place] [address] No Panel Informationon 09-02 Interpretation and review of laboratory results Abnormal [facility] PNEUMOCYSTIS JIROVECI,PCRon 09-02-2023 PN Report Status DNR Normal [facility] Comment on above: Performed By: #### Y PNRP ####[facility] (DEFAULT)[address] [facility] [place] [address] PN Specimen Source BAL RML Normal [facility] Comment on above: Performed By: #### Y PNRP ####[facility] (DEFAULT)[address] [facility] [place] [address] Pneum jiroveci comment DNR Normal [facility] Comment on above: Performed By: #### Y PNRP ####[facility] (DEFAULT)[address] [facility] [place] [address] Pneumocystis jiroveci,PCR result Negative Normal Not Applicable [facility] Comment on above: Result Comment: ---- ADDITIONAL INFORMATION This test was developed and its performance characteristicsdetermined by [facility] in a manner consistent with CLIArequirements. This test has not been cleared or approved bythe U.S. Food and Drug Administration.Test Performed by:[address] Director: Rosendo Bose M.D. Ph.D.; CLIA# [id number] Performed By: #### Y PNRP ####[facility] (DEFAULT)[address] [facility] [place] [address] PN Report Status DNR Normal [facility] Comment on above: Performed By: #### Y PNRP ####[facility] (DEFAULT)[address] [facility] [place] [address] PN Specimen Source BAL LLL Normal [facility] Comment on above: Performed By: #### Y PNRP ####[facility] (DEFAULT)[address] [facility] [place] [address] Pneum jiroveci comment DNR Normal [facility] Comment on above: Performed By: #### Y PNRP ####[facility] (DEFAULT)[address] [facility] [place] [address] Pneumocystis jiroveci,PCR result Negative Normal Not Applicable [facility] Comment on above: Result Comment: ---- ADDITIONAL INFORMATION This test was developed and its performance characteristicsdetermined by [facility] in a manner consistent with CLIArequirements. This test has not been cleared or approved bythe U.S. Food and Drug Administration.Test Performed by:[address] Director: Rosendo Bose M.D. Ph.D.; CLIA# [id number] Performed By: #### Y PNRP ####[facility] (DEFAULT)[address] [place] [address], [place] [address] TACROLIMUS LEVEL, TROUGH (DC E DRUG LEVEL)on 09-02-2023 Interpretation and review of laboratory results Normal [facility] Tacrolimus (Bld) [Mass/Vol] 4.2 ng/mL [facility] Tacrolimus, Trough 4.2 ng/mL Normal [facility] ow Transplant: 4.0-12.0, Therapeutic: 5.0-15.0 [facility] Comment on above: Order Comment: Pleas e draw at specified interval PRIOR to dose. Do not hold dose to wait for level. Specimens batched twice per day, (M-F) and once per day weekendsMethod performed is a chemiluminescent microparticle immunoasssay on the [employer] Mercerizer i2000.The range is based on experience at [facility] and users should be aware that target concentrations vary widely depending on concomitant therapy, time post-transplant, and desired degree of immunosuppression. Performed By: #### T ACRO ####[facility] (DEFAULT)[address] [place] [address] CBC,PLATELETSon 09-01-2023 Erythrocyte distribution width (RBC) [Ratio] 13.4 % 10.9 - 14.3 % [facility] Hematocrit (Bld) [Volume fraction] 38.9 % Low 39.6 - 48.8 % [facility] Hemoglobin (Bld) [Mass/Vol] 12.7 g/dL Low 13.4 - 16.8 g/dL [facility] Interpretation and review of laboratory results Abnormal [facility] MCH (RBC) [Entitic mass] 27.6 pg 26.1 - 33.3 pg [facility] MCHC (RBC) [Mass/Vol] 32.6 g/dL 31.9 - 36.5 g/dL [facility] MCV (RBC) [Entitic vol] 84.6 fL 79.0 - 94.5 fL [facility] Platelet mean volume (Bld) [Entitic vol] 9.4 fL 8.7 - 12.3 fL [facility] Platelets (Bld) [#/Vol] 209 10*3/uL 146 - 337 K/uL [facility] RBC (Bld) [#/Vol] 4.60 10*6/uL [facility] WBC (Bld) [#/Vol] 4.41 10*3/uL 3.73 - 10. 10 K/uL [facility] Hematocrit (Bld) [Volume fraction] 38.9 % Low 39.6-48.8 [facility] Comment on above: Performed By: #### H [facility] [place] ####[facility] (DEFAULT)[address] [place] [address] Hemoglobin (Bld) [Mass/Vol] 12.7 g/dL Low 13.4-16.8 [facility] Comment on above: Performed By: #### H EMOGC ####[facility] (DEFAULT)[address] [facility] [place] [address] MCV (RBC) [Entitic vol] 84.6 fL Normal 79.0-94.5 [facility] Comment on above: Performed By: #### H EMOGC ####[facility] (DEFAULT)[address] [facility] [place] [address] Mean Cell Hgb 27.6 pg Normal 26.1-33.3 [facility] Comment on above: Performed By: #### H EMOGC ####[facility] (DEFAULT)[address] [facility] [place] [address] Mean Cell Hgb Conc 32.6 g/dL Normal 31.9-36.5 [facility] Comment on above: Performed By: #### H EMOGC ####[facility] (DEFAULT)[address] [facility] [place] [address] Platelet mean volume (Bld) [Entitic vol] 9.4 fL Normal 8.7-12.3 [facility] Comment on above: Performed By: #### H EMOGC ####[facility] (DEFAULT)[address] [place] [address] Platelets (Bld) [#/Vol] 209 10*3/uL Normal 146-337 [facility] Comment on above: Performed By: #### H EMOGC ####[facility] (DEFAULT)[address] [facility] [place] [address] RBC (Bld) [#/Vol] 4.60 10*6/uL Normal 4.38-5.83 [facility] Comment on above: Performed By: #### H EMOGC ####[facility] (DEFAULT)[address] [facility] [place] [address] RBC Distribution 13.4 % Normal 10.9-14.3 [facility] Comment on above: Performed By: #### H [facility] [place] ####[facility] (DEFAULT)[address] [place] [address] WBC (Bld) [#/Vol] 4.41 10*3/uL Normal 3.73-10.10 [facility] Comment on above: Performed By: #### H [facility] [place] ####[facility] (DEFAULT)[address] [place] [address] CHEM 7 (LYTES,BUN,CREA,GLUC) on 09-01-2023 Anion gap [Moles/Vol] 14 mmol/L 7 - 17 mmol/L [facility] Chloride [Moles/Vol] 103 mmol/L 98 - 10 8 mmol/L [facility] CO2 [Moles/Vol] 21 mmol/L 21 - 31 mmol/L [facility] Creatinine [Mass/Vol] 1.16 mg/dL 0.70 - 1.30 mg/dL [facility] eGFR, CKD-EPI, Male 76 - PINF [facility] Glucose [Mass/Vol] 117 mg/dL High 70 - 99 mg/dL [facility] Osmolality Calc [Osmolality] 285 [facility] Potassium [Moles/Vol] 4.2 mmol/L 3.5 - 5.0 mmol/L [facility] Sodium [Moles/Vol] 134 mmol/L Low 135 - 145 mmol/L [facility] Urea nitrogen [Mass/Vol] 18 mg/dL 7 - 25 mg/dL [facility] Urea nitrogen/Creatinine [Mass ratio] 16 mg/mg [facility] Anion gap [Moles/Vol] 14 mmol/L Normal 7-17 [facility] Comment on above: Performed By: #### H FP MGO, CHM7 ####[facility] (DEFAULT)[address] [place] [address] Chloride [Moles/Vol] 103 mmol/L Normal 98-108 [facility] Comment on above: Performed By: #### H FP, MGO, CHM7 ####[facility] (DEFAULT)[address] [place] [address] CO2 [Moles/Vol] 21 mmol/L Normal 21-31 [facility] Comment on above: Performed By: #### H DOMENICA MONCADA CHM7 ####[facility] (DEFAULT)[address] [facility] [place] [address] Creatinine [Mass/Vol] 1.16 mg/dL Normal 0.70-1.30 [facility] Comment on above: Performed By: #### H DOMENICA MONCADA CHM7 ####[facility] (DEFAULT)[address] [place] [id number] GFR/1.73 sq M.predicted among non-blacks MDRD (S/P/Bld) [Vol rate/Area] 76 mL/min/{1.73_m2} Normal >=60 [facility] Comment on above: Result Comment: Repo rted eGFR is based on the CKD-EPI 2020 equation using creatinine, age, and sex. Performed By: #### H DOMENICA MONCADA CHM7 ####[facility] (DEFAULT)[address] [place] [address] Glucose [Mass/Vol] 117 mg/dL High 70-99 [facility] Comment on above: Performed By: #### H DOMENICA MONCADA CHM7 ####[facility] (DEFAULT)[address] [place] [address] Osmolality [Osmolality] 285 mosm/kg Normal 278-305 [facility] Comment on above: Performed By: #### H DOMENICA MONCADA CHM7 ####[facility] (DEFAULT)[address] [place] [address] Potassium [Moles/Vol] 4.2 mmol/L Normal 3.5-5.0 [facility] Comment on above: Performed By: #### H DOMENICA MONCADA CHM7 ####[facility] (DEFAULT)[address] [facility] [place] [address] Sodium [Moles/Vol] 134 mmol/L Low 135-145 [facility] Comment on above: Performed By: #### H FP, MGO, CHM7 ####[facility] (DEFAULT)[address] [facility] [place] [address] Urea nitrogen [Mass/Vol] 18 mg/dL Normal 7-25 [facility] Comment on above: Performed By: #### H FP, MGO, CHM7 ####[facility] (DEFAULT)[address] [facility] [place] [address] Urea nitrogen/Creatinine [Mass ratio] 16 mg/mg Normal [facility] Comment on above: Performed By: #### H FP, MGO, CHM7 ####[facility] (DEFAULT)[address] [facility] [place] [address] CRYPTOCOCCAL ANTIGENon 09-01 Cryptococcus sp Ag Ql (S) Negative Negative [facility] Interpretation and review of laboratory results Normal [facility] Cryptococcus Antigen,Serum Negative Normal Negative [facility] Comment on above: Performed By: #### C RAG ####[facility] (DEFAULT)[address] [facility] [place] [address] HEPATIC FUNCTION PANELon Albumin [Mass/Vol] 3.3 g/dL Low 3.5 - 5.0 g/dL [facility] ALP [Catalytic activity/Vol] 112 U/L 32 - 126 U/L [facility] ALT [Catalytic activity/Vol] 21 U/L 10 - 52 U/L [facility] AST [Catalytic activity/Vol] 29 U/L 10 - 39 U/L [facility] Bilirubin [Mass/Vol] 1.0 mg/dL [facility]/dL [facility] Bilirubin.direct [Mass/Vol] 0.2 mg/dL NINF - 0.3 mg/dL [facility] Protein [Mass/Vol] 6.8 g/dL 6.4 - 8.3 g/dL [facility] Albumin [Mass/Vol] 3.3 g/dL Low 3.5-5.0 [facility] Comment on above: Performed By: #### H FP MGO CHM7 ####[facility] (DEFAULT)[address] [place] [address] ALP [Catalytic activity/Vol] 112 U/L Normal 32-126 [facility] Comment on above: Performed By: #### H FP MGO CHM7 ####[facility] (DEFAULT)[address] [place] [address] ALT [Catalytic activity/Vol] 21 U/L Normal 10-52 [facility] Comment on above: Performed By: #### H FP MGO CHM7 ####[facility] (DEFAULT)[address] [place] [address] AST [Catalytic activity/Vol] 29 U/L Normal 10-39 [facility] Comment on above: Performed By: #### H FP MGO, CHM7 ####[facility] (DEFAULT)[address] [place] [address] Bilirubin [Mass/Vol] 1.0 mg/dL Normal <1.5 [facility] Comment on above: Performed By: #### H FP MGO, CHM7 ####[facility] (DEFAULT)[address] [place] [address] Bilirubin.indirect [Mass/Vol] 0.2 mg/dL Normal <0.3 [facility] Comment on above: Performed By: #### H FP, MGO, CHM7 ####[facility] (DEFAULT)[address] [place] [address] Protein [Mass/Vol] 6.8 g/dL Normal 6.4-8.3 [facility] Comment on above: Performed By: #### H DOMENICA MONCADA CHM7 ####[facility] (DEFAULT)[address] [facility] [place] [address] L. pneumophila 1 Ag IA Ql (U )Ordered By: Carolin Miles on 09-01-2023 Interpretation and review of laboratory results Normal [facility] LEGIONELLA URINARY AGOrdered By: Carolin Miles on 09-01-2023 L. pneumophila 1 Ag IA Ql (U) Negative Negative [facility] MAGNESIUMon 09-01-2023 Interpretation and review of laboratory results Normal [facility] Magnesium [Mass/Vol] 1.6 mg/dL 1.6 - 2 .6 mg/dL [facility] Magnesium [Mass/Vol] 1.6 mg/dL Normal 1.6-2.6 [facility] Comment on above: Performed By: #### H DOMENICA MONCADA CHM7 ####[facility] (DEFAULT)[address] [place] [address] No Panel Informationon 09-01 Interpretation and review of laboratory results Abnormal [facility] PARVOVIRUS (B19) DNA, PCR, B LOODon 09-01-2023 PARVOVIRUS B19 BY RAPID PCR Not detected Normal Not Detected [facility] Comment on above: Result Comment: The primers/probe used in this assay will detectparvovirus B19 and V9 (genotypes 1 # 3) but maynot detect parvovirus genotype 2. The majority ofcirculating Parvovirus B19 strains in the [facility] are genotype 1. Genotype 2 is not believed tocirculate widely in the [place], but has beenassociated with similar clinical features as genotype1. Genotype 3 is most prevalent in some [place].This test was developed and its analyticalperformance characteristics have been determinedby [facility], [place], [place].It has not been cleared or approved by the FDA. Thisassay has been validated pursuant to the CLIAregulations and is used for clinical purposes.Test Performed at:[facility] [address] [place] [address]AlaulbtRamon Benavides M.D., Ph.D.,Director of Laboratories Performed By: #### Y PRVP ####[facility] (DEFAULT)[address] [place] [address] DC SPEC SOURCE Whole Blood Normal [facility] Comment on above: Performed By: #### Y PRVP ####[facility] (DEFAULT)[address] [address] ASPERGILLUS (GALACTOMANNAN), ANTIGENon 08-31-2023 Aspergillus Antigen <0.500 Normal <0.5 [facility] Comment on above: Result Comment: ---- ADDITIONAL INFORMATION This is a qualitative test and the resulted index value isnot indicative of disease severity. Serial testing isrecommended for patients at high risk for invasiveaspergillosis.This assay was performed using the FDA-cleared [employer]-Timelinerlia Aspergillus Galactomannan EIA.Test Performed by:[address] Director: Rosendo Bose M.D. Ph.D.; CLIA# [id number] Performed By: #### Y ASPR ####[facility] (DEFAULT)[address] [place] [address] CBC,PLATELETSon 08-31-2023 Erythrocyte distribution width (RBC) [Ratio] 13.3 % 10.9 - 14.3 % [facility] Hematocrit (Bld) [Volume fraction] 39.4 % Low 39.6 - 48.8 % [facility] Hemoglobin (Bld) [Mass/Vol] 12.8 g/dL Low 13.4 - 16.8 g/dL [facility] Interpretation and review of laboratory results Abnormal [facility] MCH (RBC) [Entitic mass] 27.6 pg 26.1 - 33.3 pg [facility] MCHC (RBC) [Mass/Vol] 32.5 g/dL 31.9 - 36.5 g/dL [facility] MCV (RBC) [Entitic vol] 85.1 fL 79.0 - 94.5 fL [facility] Platelet mean volume (Bld) [Entitic vol] 9.6 fL 8.7 - 12.3 fL [facility] Platelets (Bld) [#/Vol] 228 10*3/uL 146 - 337 K/uL [facility] RBC (Bld) [#/Vol] 4.63 10*6/uL [facility] WBC (Bld) [#/Vol] 4.77 10*3/uL 3.73 - 10. 10 K/uL [facility] Hematocrit (Bld) [Volume fraction] 39.4 % Low 39.6-48.8 [facility] Comment on above: Performed By: #### H [facility] ####[facility] (DEFAULT)[address] [place] [address] Hemoglobin (Bld) [Mass/Vol] 12.8 g/dL Low 13.4-16.8 [facility] Comment on above: Performed By: #### H EMO ####[facility] (DEFAULT)[address] [place] [address] MCV (RBC) [Entitic vol] 85.1 fL Normal 79.0-94.5 [facility] Comment on above: Performed By: #### H EMOGC ####[facility] (DEFAULT)[address] [place] [address] Mean Cell Hgb 27.6 pg Normal 26.1-33.3 [facility] Comment on above: Performed By: #### H EMOGC ####[facility] (DEFAULT)[address] [place] [address] Mean Cell Hgb Conc 32.5 g/dL Normal 31.9-36.5 [facility] Comment on above: Performed By: #### H EMOGC ####[facility] (DEFAULT)[address] [facility] [place] [address] Platelet mean volume (Bld) [Entitic vol] 9.6 fL Normal 8.7-12.3 [facility] Comment on above: Performed By: #### H EMO ####[facility] (DEFAULT)[address] [facility] [place] [address] Platelets (Bld) [#/Vol] 228 10*3/uL Normal 146-337 [facility] Comment on above: Performed By: #### H EMO ####[facility] (DEFAULT)[address] [facility] [place] [address] RBC (Bld) [#/Vol] 4.63 10*6/uL Normal 4.38-5.83 [facility] Comment on above: Performed By: #### H EMO ####[facility] (DEFAULT)[address] [facility] [place] [address] RBC Distribution 13.3 % Normal 10.9-14.3 [facility] Comment on above: Performed By: #### H EMO ####[facility] (DEFAULT)[address] [facility] [place] [address] WBC (Bld) [#/Vol] 4.77 10*3/uL Normal 3.73-10.10 [facility] Comment on above: Performed By: #### H EMO ####[facility] (DEFAULT)[address] [place] [address] CHEM 7 (LYTES,BUN,CREA,GLUC) on 08-31-2023 Anion gap [Moles/Vol] 13 mmol/L 7 - 17 mmol/L [facility] Chloride [Moles/Vol] 102 mmol/L 98 - 10 8 mmol/L [facility] CO2 [Moles/Vol] 23 mmol/L 21 - 31 mmol/L [facility] Creatinine [Mass/Vol] 1.37 mg/dL High 0.70 - 1.30 mg/dL [facility] eGFR, CKD-EPI, Male 62 - PINF [facility] Glucose [Mass/Vol] 112 mg/dL High 70 - 99 mg/dL [facility] Osmolality Calc [Osmolality] 284 [facility] Potassium [Moles/Vol] 4.4 mmol/L 3.5 - 5.0 mmol/L [facility] Sodium [Moles/Vol] 134 mmol/L Low 135 - 145 mmol/L [facility] Urea nitrogen [Mass/Vol] 16 mg/dL 7 - 25 mg/dL [facility] Urea nitrogen/Creatinine [Mass ratio] 12 mg/mg [facility] Anion gap [Moles/Vol] 13 mmol/L Normal 7-17 [facility] Comment on above: Performed By: #### M GO, HFP, CHM7, FERIB, PROCAL ####[facility] (DEFAULT)[address] [place] [address] Chloride [Moles/Vol] 102 mmol/L Normal 98-108 [facility] Comment on above: Performed By: #### M GO, HFP, CHM7, FERIB, PROCAL ####[facility] (DEFAULT)[address] [place] [address] CO2 [Moles/Vol] 23 mmol/L Normal 21-31 [facility] Comment on above: Performed By: #### M GO, HFP, CHM7, FERIB, PROCAL ####[facility] (DEFAULT)[address] [place] [address] Creatinine [Mass/Vol] 1.37 mg/dL High 0.70-1.30 [facility] Comment on above: Performed By: #### M GO, HFP, CHM7, FERIB, PROCAL ####[facility] (DEFAULT)[address] [place] [address] GFR/1.73 sq M.predicted among non-blacks MDRD (S/P/Bld) [Vol rate/Area] 62 mL/min/{1.73_m2} Normal >=60 [facility] Comment on above: Result Comment: Repo rted eGFR is based on the CKD-EPI 2020 equation using creatinine, age, and sex. Performed By: #### M GO, HFP, CHM7, FERIB, PROCAL ####[facility] (DEFAULT)[address] [place] [address] Glucose [Mass/Vol] 112 mg/dL High 70-99 [facility] Comment on above: Performed By: #### M GO, HFP, CHM7, FERIB, PROCAL ####[facility] (DEFAULT)[address] [place] [address] Osmolality [Osmolality] 284 mosm/kg Normal 278-305 [facility] Comment on above: Performed By: #### M GO, HFP, CHM7, FERIB, PROCAL ####[facility] (DEFAULT)[address] [place] [address] Potassium [Moles/Vol] 4.4 mmol/L Normal 3.5-5.0 [facility] Comment on above: Performed By: #### M GO, HFP, CHM7, FERIB, PROCAL ####[facility] (DEFAULT)[address] [place] [address] Sodium [Moles/Vol] 134 mmol/L Low 135-145 [facility] Comment on above: Performed By: #### M GO, HFP, CHM7, FERIB, PROCAL ####[facility] (DEFAULT)[address] [place] [address] Urea nitrogen [Mass/Vol] 16 mg/dL Normal 7-25 [facility] Comment on above: Performed By: #### M GO, HFP, CHM7, FERIB, PROCAL ####[facility] (DEFAULT)[address] [place] [address] Urea nitrogen/Creatinine [Mass ratio] 12 mg/mg Normal [facility] Comment on above: Performed By: #### M TAVO BLOOM, CHM7, FERIB, PROCAL ####[facility] (DEFAULT)[address] [place] [address] CT ABDOMEN/PELVIS WITHOUT CO NTRASTon 08-31-2023 CT ABDOMEN/PELVIS WITHOUT CONTRAST Normal [facility] CT Abdomen and Pelvis WO con traston 08-31-2023 RADIOLOGY RADIOLOGY [facility] Radiology Study observation (narrative) [facility] CT Abdomen and Pelvis WO con trastOrdered By: Chavez Larkin on 08-31-2023 [facility] Work Phone: CT CHEST WITHOUT CONTRASTon 08-31-2023 CT CHEST WITHOUT CONTRAST Normal [facility] CT Chest WO contraston 08-31 RADIOLOGY RADIOLOGY [facility] Radiology Study observation (narrative) [facility] CT Chest WO contrastOrdered By: Daisha Patterson on 08-31-2023 [facility] Work Phone: FERRITINon 08-31-2023 Ferritin [Mass/Vol] 409.0 ng/mL High 10.5 - 3 07.3 ng/mL [facility] Interpretation and review of laboratory results Abnormal [facility] Ferritin [Mass/Vol] 409.0 ng/mL High 10.5-307.3 [facility] Comment on above: Performed By: #### M TAVO BLOOM, CHM7, FERIB, PROCAL ####[facility] (DEFAULT)[address] [place] [address] HEPATIC FUNCTION PANELon Albumin [Mass/Vol] 3.3 g/dL Low 3.5 - 5.0 g/dL [facility] ALP [Catalytic activity/Vol] 113 U/L 32 - 126 U/L [facility] ALT [Catalytic activity/Vol] 25 U/L 10 - 52 U/L [facility] AST [Catalytic activity/Vol] 31 U/L 10 - 39 U/L [facility] Bilirubin [Mass/Vol] 1.1 mg/dL NINF - 1.5 mg/dL [facility] Bilirubin.direct [Mass/Vol] 0.3 mg/dL High NINF - 0.3 mg/dL [facility] Protein [Mass/Vol] 7.0 g/dL 6.4 - 8.3 g/dL [facility] Albumin [Mass/Vol] 3.3 g/dL Low 3.5-5.0 [facility] Comment on above: Performed By: #### M GO, HFP, CHM7, FERIB, PROCAL ####[facility] (DEFAULT)[address] [place] [address] ALP [Catalytic activity/Vol] 113 U/L Normal 32-126 [facility] Comment on above: Performed By: #### M GO, HFP, CHM7, FERIB, PROCAL ####[facility] (DEFAULT)[address] [place] [address] ALT [Catalytic activity/Vol] 25 U/L Normal 10-52 [facility] Comment on above: Performed By: #### M GO, HFP, CHM7, FERIB, PROCAL ####[facility] (DEFAULT)[address] [place] [address] AST [Catalytic activity/Vol] 31 U/L Normal 10-39 [facility] Comment on above: Performed By: #### M GO, HFP, CHM7, FERIB, PROCAL ####[facility] (DEFAULT)[address] [place] [address] Bilirubin [Mass/Vol] 1.1 mg/dL Normal <1.5 [facility] Comment on above: Performed By: #### M GO, HFP, CHM7, FERIB, PROCAL ####[facility] (DEFAULT)[address] [place] [address] Bilirubin.indirect [Mass/Vol] 0.3 mg/dL High <0.3 [facility] Comment on above: Performed By: #### M TAVO BLOOM, CHM7, FERIB, PROCAL ####[facility] (DEFAULT)[address] [place] [address] Protein [Mass/Vol] 7.0 g/dL Normal 6.4-8.3 [facility] Comment on above: Performed By: #### M TAVO BLOOM, CHM7, FERIB, PROCAL ####[facility] (DEFAULT)[address] [facility] [place] [address] LEGIONELLA URINARY AGon Legionella Urinary Antigen Negative Normal Negative [facility] Comment on above: Performed By: #### L EGION ####[facility] (DEFAULT)[address] [place] [address] MAGNESIUMon 08-31-2023 Interpretation and review of laboratory results Normal [facility] Magnesium [Mass/Vol] 1.7 mg/dL 1.6 - 2 .6 mg/dL [facility] Magnesium [Mass/Vol] 1.7 mg/dL Normal 1.6-2.6 [facility] Comment on above: Performed By: #### M TAVO BLOOM, CHM7, FERIB, PROCAL ####[facility] (DEFAULT)[address] [place] [address] No Panel Informationon 08-31 Interpretation and review of laboratory results Abnormal [facility] PROCALCITONINon 08-31-2023 Interpretation and review of laboratory results Normal [facility] Procalcitonin [Mass/Vol] 0.23 ng/mL NINF - 0.50 ng/mL [facility] Procalcitonin 0.23 ng/mL Normal <0.50 [facility] Comment on above: Result Comment: Proc [...] and trend procalcitonin in various clinical settings. [email or web address] [email or web address]=[email or web address] common cutoffs associated with bacterial infections are as follows.Respiratory tract infections: >0.25 ng/mLSepsis/septic shock: >0.5 ng/mLProcalcitonin should not be used alone as a diagnostic tool, however. All procalcitonin results should be interpreted in association with the patients clinical condition and all laboratory findings. Performed By: #### M GO, HFP, CHM7, FERIB, PROCAL ####[facility] ([facility] [place] [address] TACROLIMUS LEVEL, TROUGH (DC E DRUG LEVEL)Ordered By: Yanira Marcum on 08-31-2023 Interpretation and review of laboratory results Normal [facility] Tacrolimus (Bld) [Mass/Vol] 5.9 ng/mL [facility] TACROLIMUS LEVEL, TROUGH (DC E DRUG LEVEL)on 08-31-2023 Tacrolimus, Trough 5.9 ng/mL Normal [facility] ow Transplant: 4.0-12.0, Therapeutic: 5.0-15.0 [facility] Comment on above: Order Comment: Pleas e draw at specified interval PRIOR to dose. Do not hold dose to wait for level. Specimens batched twice per day, (M-F) and once per day weekendsMethod performed is a chemiluminescent microparticle immunoasssay on the [employer] i2000.The range is based on experience at [facility] and users should be aware that target concentrations vary widely depending on concomitant therapy, time post-transplant, and desired degree of immunosuppression. Performed By: #### T ACRO ####[facility] (DEFAULT)[address] [place] [address] URINE CULTUREOrdered By: Jorge crowe Held on 08-31-2023 Bacteria identified Cx Nom (Unsp spec) No Growth [facility] DARYL AURIS SCREEN BY PCRO rdered By: Mynor Alejandro on 08-30-2023 Daryl auris Screen by PCR Not detected Not Detected [facility] Interpretation and review of laboratory results Normal [facility] CBC,PLATELETSon 08-30-2023 Erythrocyte distribution width (RBC) [Ratio] 13.3 % 10.9 - 14.3 % [facility] Hematocrit (Bld) [Volume fraction] 41.3 % 39.6 - 48.8 % [facility] Hemoglobin (Bld) [Mass/Vol] 13.2 g/dL Low 13.4 - 16.8 g/dL [facility] Interpretation and review of laboratory results Abnormal [facility] MCH (RBC) [Entitic mass] 27.3 pg 26.1 - 33.3 pg [facility] MCHC (RBC) [Mass/Vol] 32.0 g/dL 31.9 - 36.5 g/dL [facility] MCV (RBC) [Entitic vol] 85.5 fL 79.0 - 94.5 fL [facility] Platelet mean volume (Bld) [Entitic vol] 9.2 fL 8.7 - 12.3 fL [facility] Platelets (Bld) [#/Vol] 235 10*3/uL 146 - 337 K/uL [facility] RBC (Bld) [#/Vol] 4.83 10*6/uL [facility] WBC (Bld) [#/Vol] 4.96 10*3/uL 3.73 - 10. 10 K/uL [facility] Hematocrit (Bld) [Volume fraction] 41.3 % Normal 39.6-48.8 [facility] Comment on above: Performed By: #### H [facility] [place] ####[facility] (DEFAULT)[address] [facility] [place] [address] Hemoglobin (Bld) [Mass/Vol] 13.2 g/dL Low 13.4-16.8 [facility] Comment on above: Performed By: #### H EMOGC ####[facility] (DEFAULT)[address] [place] [address] MCV (RBC) [Entitic vol] 85.5 fL Normal 79.0-94.5 [facility] Comment on above: Performed By: #### H EMOGC ####[facility] (DEFAULT)[address] [place] [address] Mean Cell Hgb 27.3 pg Normal 26.1-33.3 [facility] Comment on above: Performed By: #### H EMOGC ####[facility] (DEFAULT)[address] [facility] [place] [address] Mean Cell Hgb Conc 32.0 g/dL Normal 31.9-36.5 [facility] Comment on above: Performed By: #### H EMOGC ####[facility] (DEFAULT)[address] [facility] [place] [address] Platelet mean volume (Bld) [Entitic vol] 9.2 fL Normal 8.7-12.3 [facility] Comment on above: Performed By: #### H EMOGC ####[facility] (DEFAULT)[address] [place] [address] Platelets (Bld) [#/Vol] 235 10*3/uL Normal 146-337 [facility] Comment on above: Performed By: #### H EMOGC ####[facility] (DEFAULT)[address] [facility] [place] [address] RBC (Bld) [#/Vol] 4.83 10*6/uL Normal 4.38-5.83 [facility] Comment on above: Performed By: #### H EMOGC ####[facility] (DEFAULT)[address] [place] [address] RBC Distribution 13.3 % Normal 10.9-14.3 [facility] Comment on above: Performed By: #### H [facility] [place] ####[facility] (DEFAULT)[address] [place] [address] WBC (Bld) [#/Vol] 4.96 10*3/uL Normal 3.73-10.10 [facility] Comment on above: Performed By: #### H [facility] [place] ####[facility] (DEFAULT)[address] [place] [address] CHEM 7 (LYTES,BUN,CREA,GLUC) on 08-30-2023 Anion gap [Moles/Vol] 14 mmol/L 7 - 17 mmol/L [facility] Chloride [Moles/Vol] 102 mmol/L 98 - 10 8 mmol/[facility] CO2 [Moles/Vol] 20 mmol/L Low 21 - 31 mmol/L [facility] [facility] Creatinine [Mass/Vol] 1.56 mg/dL High 0.70 - 1.30 mg/dL [facility] eGFR, CKD-EPI, Male 54 Low - PINF [facility] Glucose [Mass/Vol] 123 mg/dL High 70 - 99 mg/dL [facility] Osmolality [facility]ality] [facility] Potassium [Moles/Vol] 4.3 mmol/L 3.5 - 5.0 mmol/L [facility] Sodium [Moles/Vol] 132 mmol/L Low 135 - 145 mmol/L [facility] Urea nitrogen [Mass/Vol] 16 mg/dL 7 - 25 [facility] Urea nitrogen/Creatinine [Mass ratio] 10 [facility] Anion gap [Moles/Vol] 14 mmol/L Normal 7-17 [facility] Comment on above: Performed By: #### M GO, CHM7, HFP ####[facility] (DEFAULT)[address] [place] [address] Chloride [Moles/Vol] 102 mmol/L Normal 98-108 [facility] Comment on above: Performed By: #### NATHANIEL RAMÍREZ, HFP ####[facility] (DEFAULT)[address] [place] [address] CO2 [Moles/Vol] 20 mmol/L Low 21-31 [facility] Comment on above: Performed By: #### NATHANIEL RAMÍREZ, HFP ####[facility] (DEFAULT)[address] [facility] [place] [address] Creatinine [Mass/Vol] 1.56 mg/dL High 0.70-1.30 [facility] Comment on above: Performed By: #### NATHANIEL RAMÍREZ, HFP ####[facility] (DEFAULT)[address] [facility] [place] [address] GFR/1.73 sq M.predicted among non-blacks MDRD (S/P/Bld) [Vol rate/Area] 53 mL/min/{1.73_m2} Low >=60 [facility] Comment on above: Result Comment: Repo rted eGFR is based on the CKD-EPI 2020 equation using creatinine, age, and sex. Performed By: #### NATHANIEL RAMÍREZ, HFP ####[facility] (DEFAULT)[address] [facility] [place] [address] Glucose [Mass/Vol] 123 mg/dL High 70-99 [facility] Comment on above: Performed By: #### NATHANIEL RAMÍREZ, HFP ####[facility] (DEFAULT)[address] [facility] [place] [address] Osmolality [Osmolality] 281 mosm/kg Normal 278-305 [facility] Comment on above: Performed By: #### NATHANIEL RAMÍREZ, HFP ####[facility] (DEFAULT)[address] [facility] [place] [address] Potassium [Moles/Vol] 4.3 mmol/L Normal 3.5-5.0 [facility] Comment on above: Performed By: #### M TJ BLOOM7, HFP ####[facility] (DEFAULT)[address] [facility] [place] [address] Sodium [Moles/Vol] 132 mmol/L Low 135-145 [facility] Comment on above: Performed By: #### TJ RAMÍREZ7, HFP ####[facility] (DEFAULT)[address] [facility] [place] [address] Urea nitrogen [Mass/Vol] 16 mg/dL Normal 7-25 [facility] Comment on above: Performed By: #### M NATHANIEL BLOOM, HFP ####[facility] (DEFAULT)[address] [facility] [place] [address] Urea nitrogen/Creatinine [Mass ratio] 10 mg/mg Normal [facility] Comment on above: Performed By: #### NATHANIEL RAMÍREZ, HFP ####[facility] (DEFAULT)[address] [facility] [place] [address] EXTRA MICROon 08-30-2023 [facility] HEPATIC FUNCTION PANELon Albumin [Mass/Vol] 3.7 g/dL 3.5 - 5.0 g/dL [facility] ALP [Catalytic activity/Vol] 115 U/L 32 - 126 U/L [facility] ALT [Catalytic activity/Vol] 22 U/L 10 - 52 U/L [facility] AST [Catalytic activity/Vol] 34 U/L 10 - 39 U/L [facility] Bilirubin [Mass/Vol] 1.2 mg/dL [facility] Bilirubin.direct [Mass/Vol] 0.3 mg/dL High NINF - 0.3 mg/dL [facility] Protein [Mass/Vol] 7.7 g/dL 6.4 - 8.3 g/dL [facility] Albumin [Mass/Vol] 3.7 g/dL Normal 3.5-5.0 [facility] Comment on above: Performed By: #### M HELEN BLOOMM7, HFP ####[facility] (DEFAULT)[address] [place] [address] ALP [Catalytic activity/Vol] 115 U/L Normal 32-126 [facility] Comment on above: Performed By: #### M MERLE CHM7, HFP ####[facility] (DEFAULT)[address] [place] [address] ALT [Catalytic activity/Vol] 22 U/L Normal 10-52 [facility] Comment on above: Performed By: #### M HELEN BLOOMM7, HFP ####[facility] (DEFAULT)[address] [place] [address] AST [Catalytic activity/Vol] 34 U/L Normal 10-39 [facility] Comment on above: Performed By: #### Rod BLOOM CHM7, HFP ####[facility] (DEFAULT)[address] [place] [address] Bilirubin [Mass/Vol] 1.2 mg/dL Normal <1.5 [facility] Comment on above: Performed By: #### M HELEN BLOOMM7, HFP ####[facility] (DEFAULT)[address] [place] [address] Bilirubin.indirect [Mass/Vol] 0.3 mg/dL High <0.3 [facility] Comment on above: Performed By: #### Rod BLOOM CHM7, HFP ####[facility] (DEFAULT)[address] [place] [address] Protein [Mass/Vol] 7.7 g/dL Normal 6.4-8.3 [facility] Comment on above: Performed By: #### Rod BLOOM CHM7, HFP ####[facility] (DEFAULT)[address] [place] [address] MAGNESIUMon 08-30-2023 Interpretation and review of laboratory results Normal [facility] Magnesium [Mass/Vol] 1.8 mg/dL 1.6 - 2 .6 mg/dL [facility] Magnesium [Mass/Vol] 1.8 mg/dL Normal 1.6-2.6 [facility] Comment on above: Performed By: #### M , CHM7, [facility] ####[facility] (DEFAULT)[address] [place] [address] No Panel Informationon 08-30 Interpretation and review of laboratory results Abnormal [facility] CBC,PLATELETSon 08-29-2023 Erythrocyte distribution width (RBC) [Ratio] 13.4 % 10.9 - 14.3 % [facility] Hematocrit (Bld) [Volume fraction] 37.6 % Low 39.6 - 48.8 % [facility] Hemoglobin (Bld) [Mass/Vol] 12.2 g/dL Low 13.4 - 16.8 g/dL [facility] Interpretation and review of laboratory results Abnormal [facility] MCH (RBC) [Entitic mass] 27.6 pg 26.1 - 33.3 pg [facility] MCHC (RBC) [Mass/Vol] 32.4 g/dL 31.9 - 36.5 g/dL [facility] MCV (RBC) [Entitic vol] 85.1 fL 79.0 - 94.5 fL [facility] Platelet mean volume (Bld) [Entitic vol] 9.4 fL 8.7 - 12.3 fL [facility] Platelets (Bld) [#/Vol] 233 10*3/uL 146 - 337 K/uL [facility] RBC (Bld) [#/Vol] 4.42 10*6/uL [facility] WBC (Bld) [#/Vol] 4.92 10*3/uL 3.73 - 10. 10 K/uL [facility] Hematocrit (Bld) [Volume fraction] 37.6 % Low 39.6-48.8 [facility] Comment on above: Performed By: #### H [facility] ####[facility] (DEFAULT)[address] [facility] [place] [address] Hemoglobin (Bld) [Mass/Vol] 12.2 g/dL Low 13.4-16.8 [facility] Comment on above: Performed By: #### H EMOGC ####[facility] (DEFAULT)[address] [facility] [place] [address] MCV (RBC) [Entitic vol] 85.1 fL Normal 79.0-94.5 [facility] Comment on above: Performed By: #### H EMOGC ####[facility] (DEFAULT)[address] [facility] [place] [address] Mean Cell Hgb 27.6 pg Normal 26.1-33.3 [facility] Comment on above: Performed By: #### H EMOGC ####[facility] (DEFAULT)[address] [facility] [place] [address] Mean Cell Hgb Conc 32.4 g/dL Normal 31.9-36.5 [facility] Comment on above: Performed By: #### H EMOGC ####[facility] (DEFAULT)[address] [facility] [place] [address] Platelet mean volume (Bld) [Entitic vol] 9.4 fL Normal 8.7-12.3 [facility] Comment on above: Performed By: #### H EMOGC ####[facility] (DEFAULT)[address] [facility] [place] [address] Platelets (Bld) [#/Vol] 233 10*3/uL Normal 146-337 [facility] Comment on above: Performed By: #### H EMOGC ####[facility] (DEFAULT)[address] [facility] [place] [address] RBC (Bld) [#/Vol] 4.42 10*6/uL Normal 4.38-5.83 [facility] Comment on above: Performed By: #### H EMOGC ####[facility] (DEFAULT)[address] [place] [address] RBC Distribution 13.4 % Normal 10.9-14.3 [facility] Comment on above: Performed By: #### H [facility] [place] ####[facility] (DEFAULT)[address] [place] [address] WBC (Bld) [#/Vol] 4.92 10*3/uL Normal 3.73-10.10 [facility] Comment on above: Performed By: #### H [facility] [place] ####[facility] (DEFAULT)[address] [place] [address] CHEM 7 (LYTES,BUN,CREA,GLUC) on 08-29-2023 Anion gap [Moles/Vol] 13 mmol/L 7 - 17 mmol/L [facility] Chloride [Moles/Vol] 105 mmol/L 98 - 10 8 mmol/L [facility] CO2 [Moles/Vol] 20 mmol/L Low 21 - 31 mmol/L [facility] Creatinine [Mass/Vol] 1.55 mg/dL High 0.70 - 1.30 mg/dL [facility] eGFR, CKD-EPI, Male 55 Low - PINF [facility] Glucose [Mass/Vol] 108 mg/dL High 70 - 99 mg/dL [facility] Osmolality Calc [Osmolality] 283 [facility] Potassium [Moles/Vol] 4.5 mmol/L 3.5 - 5.0 mmol/L [facility] Sodium [Moles/Vol] 133 mmol/L Low 135 - 145 mmol/L [facility] Urea nitrogen [Mass/Vol] 19 mg/dL 7 - 25 mg/dL [facility] Urea nitrogen/Creatinine [Mass ratio] 12 mg/mg [facility] Anion gap [Moles/Vol] 13 mmol/L Normal 7-17 [facility] Comment on above: Performed By: #### M GO, CHM7, GGTB, HFP ####[facility] (DEFAULT)[address] [facility] [place] [address] Chloride [Moles/Vol] 105 mmol/L Normal 98-108 [facility] Comment on above: Performed By: #### M GO, CHM7, GGTB, HFP ####[facility] (DEFAULT)[address] [place] [address] CO2 [Moles/Vol] 20 mmol/L Low 21-31 [facility] Comment on above: Performed By: #### M GO, CHM7, GGTB, HFP ####[facility] (DEFAULT)[address] [facility] [place] [address] Creatinine [Mass/Vol] 1.55 mg/dL High 0.70-1.30 [facility] Comment on above: Performed By: #### M GO, CHM7, GGTB, HFP ####[facility] (DEFAULT)[address] [facility] [place] [address] GFR/1.73 sq M.predicted among non-blacks MDRD (S/P/Bld) [Vol rate/Area] 54 mL/min/{1.73_m2} Low >=60 [facility] Comment on above: Result Comment: Repo rted eGFR is based on the CKD-EPI 2020 equation using creatinine, age, and sex. Performed By: #### M GO, CHM7, GGTB, HFP ####[facility] (DEFAULT)[address] [facility] [place] [address] Glucose [Mass/Vol] 108 mg/dL High 70-99 [facility] Comment on above: Performed By: #### M GO, CHM7, GGTB, HFP ####[facility] (DEFAULT)[address] [facility] [place] [address] Osmolality [Osmolality] 283 mosm/kg Normal 278-305 [facility] Comment on above: Performed By: #### M GO, CHM7, GGTB, HFP ####[facility] (DEFAULT)[address] [facility] [place] [address] Potassium [Moles/Vol] 4.5 mmol/L Normal 3.5-5.0 [facility] Comment on above: Performed By: #### M GO, CHM7, GGTB, HFP ####[facility] (DEFAULT)[address] [place] [address] Sodium [Moles/Vol] 133 mmol/L Low 135-145 [facility] Comment on above: Performed By: #### M GO, CHM7, GGTB, HFP ####[facility] (DEFAULT)[address] [facility] [place] [address] Urea nitrogen [Mass/Vol] 19 mg/dL Normal 7-25 [facility] Comment on above: Performed By: #### M GO, CHM7, GGTB, HFP ####[facility] (DEFAULT)[address] [facility] [place] [address] Urea nitrogen/Creatinine [Mass ratio] 12 mg/mg Normal [facility] Comment on above: Performed By: #### M GO, CHM7, GGTB, HFP ####[facility] (DEFAULT)[address] [facility] [place] [address] GGTon 08-29-2023 Gamma glutamyl transferase [Catalytic activity/Vol] 64 U/L 8 - 64 U/L [facility] Interpretation and review of laboratory results Normal [facility] Gamma glutamyl transferase [Catalytic activity/Vol] 64 U/L Normal 8-64 [facility] Comment on above: Performed By: #### M GO, CHM7, GGTB, HFP ####[facility] (DEFAULT)[address] [facility] [place] [address] HEPATIC FUNCTION PANELon Albumin [Mass/Vol] 3.3 g/dL Low 3.5 - 5.0 g/dL [facility] ALP [Catalytic activity/Vol] 103 U/L 32 - 126 U/L [facility] ALT [Catalytic activity/Vol] 18 U/L 10 - 52 U/L [facility] AST [Catalytic activity/Vol] 27 U/L 10 - 39 U/L [facility] Bilirubin [Mass/Vol] 1.1 mg/dL NINF - 1.5 mg/dL [facility] Bilirubin.direct [Mass/Vol] 0.3 mg/dL High NINF - 0.3 mg/dL [facility] Protein [Mass/Vol] 6.8 g/dL 6.4 - 8.3 g/dL [facility] Albumin [Mass/Vol] 3.3 g/dL Low 3.5-5.0 [facility] Comment on above: Performed By: #### M GO, CHM7, GGTB, HFP ####[facility] (DEFAULT)[address] [facility] [place] [address] ALP [Catalytic activity/Vol] 103 U/L Normal 32-126 [facility] Comment on above: Performed By: #### M GO, CHM7, GGTB, HFP ####[facility] (DEFAULT)[address] [facility] [place] [address] ALT [Catalytic activity/Vol] 18 U/L Normal 10-52 [facility] Comment on above: Performed By: #### M GO, CHM7, GGTB, HFP ####[facility] (DEFAULT)[address] [place] [address] AST [Catalytic activity/Vol] 27 U/L Normal 10-39 [facility] Comment on above: Performed By: #### M GO, CHM7, GGTB, HFP ####[facility] (DEFAULT)[address] [facility] [place] [address] Bilirubin [Mass/Vol] 1.1 mg/dL Normal <1.5 [facility] Comment on above: Performed By: #### M GO, CHM7, GGTB, HFP ####[facility] (DEFAULT)[address] [facility] [place] [address] Bilirubin.indirect [Mass/Vol] 0.3 mg/dL High <0.3 [facility] Comment on above: Performed By: #### M MERLE, CHM7, GGTB, HFP ####[facility] (DEFAULT)[address] [facility] [place] [address] Protein [Mass/Vol] 6.8 g/dL Normal 6.4-8.3 [facility] Comment on above: Performed By: #### M MERLE, CHM7, GGTB, HFP ####[facility] (DEFAULT)[address] [facility] [place] [address] HISTOPLASMA AND BLASTOMYCES ANTIGEN, ENZYME IMMUNOASSAY, SERMon 08-29-2023 Histoplasma/Blastomy antonia Ag Result Detected Invalid Interpretation Code Not Detected [facility] Comment on above: Result Comment: Anti gen from Histoplasma or Blastomyces (unable todifferentiate) detected. Result should be correlated withclinical presentation, exposure history, and otherdiagnostic procedures, including culture, serology,histopathology, and/or radiographic findings, to aid in thedifferentiation between histoplasmosis and blastomycosis.CRITICAL RESULT Performed By: #### H CORAL ####[facility] (DEFAULT)[address] [facility] [place] [address] Histoplasma/Blastomy antonia Ag Value 5.3 ng/mL Normal [facility] Comment on above: Result Comment: ---- ADDITIONAL INFORMATION This test was developed and its performance characteristicsdetermined by [facility] in a manner consistent with CLIArequirements. This test has not been cleared or approved bythe U.S. Food and Drug Administration.Test Performed by:[address] [address]Lph Director: Rosendo Bose M.D. Ph.D.; CLIA# [id number] Performed By: #### H IBAG ####[facility] (DEFAULT)[address] [place] [address], [place] [address] HISTOPLASMA ANTIGEN,URINEon 08-29-2023 HISTOPLASM AG, URINE Not detected Normal Not Detected [facility] Comment on above: Result Comment: No H istoplasma antigen detected.False negative results may occur. Repeat testing on anew specimen should be considered if clinically indicated. Performed By: #### Y HISTG ####[facility] (DEFAULT)[address] [place] [address] Histoplasma Ag Value Not detected Normal [facility] Comment on above: Result Comment: ---- ADDITIONAL INFORMATION This test has been modified from the batch records clerk'sinstructions. Its performance characteristics weredetermined by [facility] in a manner consistent withCLIA requirements. This test has not been cleared orapproved by the U.S. Food and Drug Administration.Test Performed by:[address] [address]Ndl Director: Rosendo Bose M.D. Ph.D.; CLIA# [id number] Performed By: #### Y HISTG ####[facility] (DEFAULT)[address] [place] [address] MAGNESIUMon 08-29-2023 Interpretation and review of laboratory results Normal [facility] Magnesium [Mass/Vol] 1.7 mg/dL 1.6 - 2 .6 mg/dL [facility] Magnesium [Mass/Vol] 1.7 mg/dL Normal 1.6-2.6 [facility] Comment on above: Performed By: #### M GO, CHM7, GGTB, HFP ####[facility] (DEFAULT)[address] [place] [address] No Panel Informationon 08-29 Interpretation and review of laboratory results Abnormal [facility] PT,INR,PTTon 08-29-2023 aPTT Coag (PPP) [Time] 29.3 s [facility] INR Coag (Bld) [Relative time] 1.1 {INR} 0.9 - 1.1 [facility] Interpretation and review of laboratory results Normal [facility] PT Coag (PPP) [Time] 13.8 s [facility] aPTT Coag (Bld) [Time] 29.3 s Normal 24.0-34.3 [facility] Comment on above: Performed By: #### P TPTT ####[facility] (DEFAULT)[address] [facility] [place] [address] INR Coag (PPP) [Relative time] 1.1 {INR} Normal 0.9-1.1 [facility] Comment on above: Performed By: #### P TPTT ####[facility] (DEFAULT)[address] [facility] [place] [address] PT Coag (PPP) [Time] 13.8 s Normal 11.9-14.2 [facility] Comment on above: Performed By: #### P TPTT ####[facility] (DEFAULT)[address] [place] [address] Portable XR Chest Viewson RADIOLOGY RADIOLOGY [facility] Portable XR Chest ViewsOrder ed By: Gerald Baer on 08-29-2023 [facility] Work Phone: TACROLIMUS LEVEL, TROUGH (DC E DRUG LEVEL)on 08-29-2023 Interpretation and review of laboratory results Normal [facility] Tacrolimus (Bld) [Mass/Vol] 8.9 ng/mL [facility] Tacrolimus, Trough 8.9 ng/mL Normal [facility] Transplant: 4.0-12.0, Therapeutic: 5.0-15.0 [facility] Comment on above: Order Comment: Pleas e draw at specified interval PRIOR to dose. Do not hold dose to wait for level. Specimens batched twice per day, (M-) and once per day weekendsMethod performed is a chemiluminescent microparticle immunoasssay on the [employer] Mercerizer i2000.The range is based on experience at [facility] and users should be aware that target concentrations vary widely depending on concomitant therapy, time post-transplant, and desired degree of immunosuppression. Performed By: #### T ACRO ####[facility] (DEFAULT)[address] [facility] [place] [address] Tacrolimus, Trough 8.7 ng/mL Normal [facility] Transplant: 4.0-12.0, Therapeutic: 5.0-15.0 [facility] Comment on above: Order Comment: Pleas e draw at specified interval PRIOR to dose. Do not hold dose to wait for level. Specimens batched twice per day, (M-F) and once per day weekendsMethod performed is a chemiluminescent microparticle immunoasssay on the [employer] i2000.The range is based on experience at [facility] and users should be aware that target concentrations vary widely depending on concomitant therapy, time post-transplant, and desired degree of immunosuppression. Performed By: #### T ACRO ####[facility] (DEFAULT)[address] [place] [address] TACROLIMUS LEVEL, TROUGH (DC E DRUG LEVEL)Ordered By: Roxanne Louie on 08-29-2023 Interpretation and review of laboratory results Normal [facility] Tacrolimus (Bld) [Mass/Vol] 8.7 ng/mL [facility] URINALYSIS REFLEX TO CULTURE PERFORMABLEOrdered By: Shaji Kelly on 08-29-2023 Appearance (U) Clear Clear [facility] Bacteria LM Ql (Urine sed) ABSENT ABSENT [facility] Calcium Oxalate Crystals PRESENT [facility] Color (U) Yellow Yellow [facility] Epithelial cells.squamous LM Ql (Urine sed) 0-2/hpf 0-2/hpf, 3-5/hpf = 1+ [facility] Glucose Test strip (U) [Mass/Vol] Negative Negative [facility] Interpretation and review of laboratory results Abnormal [facility] Ketones (U) [Mass/Vol] Negative Negative [facility] Leukocyte esterase Test strip Ql (U) Negative Negative [facility] Nitrite Ql (U) Negative Negative [facility] pH (U) 6.0 [pH] 5.0 - 7.0 [facility] Protein (U) [Mass/Vol] Negative Negative [facility] RBC (U) [#/Vol] Trace Abnormal Negative [facility] RBC LM.HPF (Urine sed) [#/Area] 3-5 Abnormal [facility] Specific gravity (U) [Rel density] 1.015 1.001 - 1.035 [facility] Urobilinogen (U) [Mass/Vol] 1.0 E.U./dL 0.2 E.U/dL, 1.0 E.U/dL [facility] WBC LM.HPF (Urine sed) [#/Area] 0 - 5 [facility] URINALYSIS REFLEX TO CULTURE PERFORMABLEon 08-29-2023 Appearance (U) Clear Normal Clear [facility] Comment on above: Order Comment: For i ndwelling catheters, specimen collection is acceptable on catheter day 1 and 2 only. ? Performed By: #### U [id number] ####[facility] (DEFAULT)[address] [place] [address] Bacteria ABSENT Normal ABSENT [facility] Comment on above: Order Comment: For i ndwelling catheters, specimen collection is acceptable on catheter day 1 and 2 only. ? Performed By: #### U [id number] ####[facility] (DEFAULT)[address] [place] [address] Blood Urine Trace Abnormal Negative [facility] Comment on above: Order Comment: For i ndwelling catheters, specimen collection is acceptable on catheter day 1 and 2 only. ? Performed By: #### U [id number] ####[facility] (DEFAULT)[address] [place] [address] Calcium Oxalate Crystals PRESENT Normal [facility] Comment on above: Order Comment: For i ndwelling catheters, specimen collection is acceptable on catheter day 1 and 2 only. ? Performed By: #### U [id number] ####[facility] (DEFAULT)[address] [facility] [address] Color (U) Yellow Normal Yellow [facility] Comment on above: Order Comment: For i ndwelling catheters, specimen collection is acceptable on catheter day 1 and 2 only. ? Performed By: #### U [id number] ####[facility] (DEFAULT)[address] [facility] [place] [address] Glucose Ql (U) Negative Normal Negative [facility] Comment on above: Order Comment: For i ndwelling catheters, specimen collection is acceptable on catheter day 1 and 2 only. ? Performed By: #### U [id number] ####[facility] (DEFAULT)[address] [facility] [place] [address] Ketones Ql (U) Negative Normal Negative [facility] Comment on above: Order Comment: For i ndwelling catheters, specimen collection is acceptable on catheter day 1 and 2 only. ? Performed By: #### U [id number] ####[facility] (DEFAULT)[address] [place] [address], [place] [address] Leukocyte esterase Test strip Ql (U) Negative Normal Negative [facility] Comment on above: Order Comment: For i ndwelling catheters, specimen collection is acceptable on catheter day 1 and 2 only. ? Performed By: #### U [id number] ####[facility] (DEFAULT)[address] [place] [address], [place] [address] Nitrites Urine Negative Normal Negative [facility] Comment on above: Order Comment: For i ndwelling catheters, specimen collection is acceptable on catheter day 1 and 2 only. ? Performed By: #### U [id number] ####[facility] (DEFAULT)[address] [place] [address], [place] [address] pH (U) 6.0 [pH] Normal 5.0-7.0 [facility] Comment on above: Order Comment: For i ndwelling catheters, specimen collection is acceptable on catheter day 1 and 2 only. ? Performed By: #### U [id number] ####[facility] (DEFAULT)[address] [place] [address] Protein Urine Negative Normal Negative [facility] Comment on above: Order Comment: For i ndwelling catheters, specimen collection is acceptable on catheter day 1 and 2 only. ? Performed By: #### U [id number] ####[facility] (DEFAULT)[address] [place] [address] RBC Urine 3-5 Abnormal 0-2 [facility] Comment on above: Order Comment: For i ndwelling catheters, specimen collection is acceptable on catheter day 1 and 2 only. ? Performed By: #### U [id number] ####[facility] (DEFAULT)[address] [place] [address] Specific [place] Urine 1.015 Normal 1.001-1.035 [facility] Comment on above: Order Comment: For i ndwelling catheters, specimen collection is acceptable on catheter day 1 and 2 only. ? Performed By: #### U [id number] ####[facility] (DEFAULT)[address] [place] [address] Squamous/Epithelial Cells 0-2/hpf Normal 0-2/hpf, 3-5/hpf = 1+ [facility] Comment on above: Order Comment: For i ndwelling catheters, specimen collection is acceptable on catheter day 1 and 2 only. ? Performed By: #### U [id number] ####[facility] (DEFAULT)[address] [place] [address] Urobilinogen Urine 1.0 E.U./dL Normal 0.2 E.U/d L, 1.0 E.U/dL [facility] Comment on above: Order Comment: For i ndwelling catheters, specimen collection is acceptable on catheter day 1 and 2 only. ? Performed By: #### U [id number] ####[facility] (DEFAULT)[address] [facility] [place] [address] WBC Urine 0 - 5 Normal 0 - 5 [facility] Comment on above: Order Comment: For i ndwelling catheters, specimen collection is acceptable on catheter day 1 and 2 only. ? Performed By: #### U [id number] ####[facility] (DEFAULT)[address] [place] [address] URINE CULTUREon 08-29-2023 Bacteria identified Cx Nom (U) No Growth Normal [facility] Comment on above: Order Comment: For i ndwelling catheters, specimen collection is acceptable on catheter day 1 and 2 only. Sung top vacutainer. Urine must be to the fill line to process (4mls). If minimum volume, send urine in a yellow top vacutainer tube. Performed By: #### U R ####[facility] (DEFAULT)[address] [place] [address] US RENAL TRANSPLANT SCANon 0 08-29-2023 US RENAL TRANSPLANT SCAN Normal [facility] US for transplanted kidney l imitedon 08-29-2023 RADIOLOGY RADIOLOGY [facility] Radiology Study observation (narrative) [facility] US for transplanted kidney l imitedOrdered By: Romana Matias on 08-29-2023 [facility] Work Phone: XR CHEST PORTABLEon 08-29-20 23 XR CHEST PORTABLE Normal [facility] BLOOD CULTUREon 08-28-2023 Bacteria identified Cx Nom (Unsp spec) NO GROWTH DAY 5 OF 5 Normal [facility] Comment on above: Order Comment: 2 Bot tles (1 Set - consists of 1 Aerobic bottle and 1 Anaerobic bottle) -1st Peripheral DrawFor syringe method draw:If able to obtain adequate sample (20 ml) inoculate anaerobic bottle firstIf inadequate sample obtained (less than 20 ml) inoculate aerobic bottle firstFor vacutainer method draw: Fill aerobic bottle first, then anaerobic Performed By: #### B LDCULT ####[facility] (DEFAULT)[address] [place] [address] Bacteria identified Cx Nom (Unsp spec) NO GROWTH DAY 5 OF 5 Normal [facility] Comment on above: Order Comment: 2 Bot tles (1 Set - consists of 1 Aerobic bottle and 1 Anaerobic bottle) -1st Peripheral DrawFor syringe method draw:If able to obtain adequate sample (20 ml) inoculate anaerobic bottle firstIf inadequate sample obtained (less than 20 ml) inoculate aerobic bottle firstFor vacutainer method draw: Fill aerobic bottle first, then anaerobic Performed By: #### B LDCULT ####[facility] (DEFAULT)[address] [place] [address] DARYL AURIS SCREEN BY PCRo n 08-28-2023 Daryl auris Screen by PCR Not detected Normal Not Detected [facility] Comment on above: Order Comment: This test was performed using a real-time PCR assay. This test was developed, and its performance characteristics determined by [facility]. It has not been cleared or approved by the FDA. The laboratory is regulated under CLIA as qualified to perform high-complexity testing. This test is used for clinical purposes. It should not be regarded as investigational or for research. Performed By: #### C ANDIDA AURIS SCREEN BY PCR ####[facility] (DEFAULT)[address] [place] [address] CBC AND ELECTRONIC DIFFon Basophils (Bld) [#/Vol] K/uL 0.00 - 0.09 K/uL [facility] Basophils/100 WBC (Bld) 0.6 % [facility] Differential cell count method Nom (Bld) Electronic Differential [facility] Eosinophils (Bld) [#/Vol] 0.10 10*3/uL 0.00 - 0.48 K/uL [facility] Eosinophils/100 WBC (Bld) 2.1 % [facility] Erythrocyte distribution width (RBC) [Ratio] 13.4 % 10.9 - 14.3 % [facility] Hematocrit (Bld) [Volume fraction] 37.9 % Low 39.6 - 48.8 % [facility] Hemoglobin (Bld) [Mass/Vol] 12.4 g/dL Low 13.4 - 16.8 g/dL [facility] Immature granulocytes (Bld) [#/Vol] K/uL NINF - 0.07 K/uL [facility] Immature granulocytes/100 WBC (Bld) 0.6 % [facility] Interpretation and review of laboratory results Abnormal [facility] Lymphocytes (Bld) [#/Vol] 1.76 10*3/uL 0.83 - 3.57 K/uL [facility] Lymphocytes/100 WBC (Bld) 37.1 % [facility] MCH (RBC) [Entitic mass] 27.8 pg 26.1 - 33.3 pg [facility] MCHC (RBC) [Mass/Vol] 32.7 g/dL 31.9 - 36.5 g/dL [facility] MCV (RBC) [Entitic vol] 85.0 fL 79.0 - 94.5 fL [facility] Monocytes (Bld) [#/Vol] 0.66 10*3/uL 0.24 - 0.93 K/uL [facility] Monocytes/100 WBC (Bld) 13.9 % [facility] Neutrophils (Bld) [#/Vol] 2.16 10*3/uL 1.57 - 6.19 K/uL [facility] Nucleated RBC/100 WBC (Bld) [Ratio] 0.0 % [facility] Platelet mean volume (Bld) [Entitic vol] 9.3 fL 8.7 - 12.3 fL [facility] Platelets (Bld) [#/Vol] 262 10*3/uL 146 - 337 K/uL [facility] RBC (Bld) [#/Vol] 4.46 10*6/uL [facility] Segmented neutrophils/100 WBC (Bld) 45.7 % [facility] WBC (Bld) [#/Vol] 4.74 10*3/uL 3.73 - 10. 10 K/uL [facility] Abs Baso Auto < Normal 0.00-0.09 [facility] Comment on above: Performed By: #### L [id number] ####[facility] (DEFAULT)[address] [place] [address] Basophils/100 WBC (Bld) 0.6 % Normal [facility] Comment on above: Performed By: #### L [id number] ####[facility] (DEFAULT)[address] [place] [address] DIFF STATUS Electronic Differential Normal [facility] Comment on above: Performed By: #### L [id number] ####[facility] (DEFAULT)[address] [place] [address] Eosinophils (Bld) [#/Vol] 0.10 10*3/uL Normal 0.00-0.48 [facility] Comment on above: Performed By: #### L [id number] ####[facility] (DEFAULT)[address] [facility] [place] [address] Eosinophils/100 WBC (Bld) 2.1 % Normal [facility] Comment on above: Performed By: #### L [id number] ####[facility] (DEFAULT)[address] [place] [address] Hematocrit (Bld) [Volume fraction] 37.9 % Low 39.6-48.8 [facility] Comment on above: Performed By: #### L [id number] ####[facility] (DEFAULT)[address] [place] [address] Hemoglobin (Bld) [Mass/Vol] 12.4 g/dL Low 13.4-16.8 [facility] Comment on above: Performed By: #### L [id number] ####[facility] (DEFAULT)[address] [place] [address] Immature Grans % 0.6 % Normal [facility] Comment on above: Performed By: #### L [id number] ####[facility] (DEFAULT)[address] [address] Immature Grans Absolute < Normal <=0.07 [facility] Comment on above: Performed By: #### L [id number] ####[facility] (DEFAULT)[address] [facility] [place] [address] Lymphocytes (Bld) [#/Vol] 1.76 10*3/uL Normal 0.83-3.57 [facility] Comment on above: Performed By: #### L [id number] ####[facility] (DEFAULT)[address] [facility] [place] [address] Lymphocytes/100 WBC (Bld) 37.1 % Normal [facility] Comment on above: Performed By: #### L [id number] ####[facility] (DEFAULT)[address] [facility] [place] [address] MCV (RBC) [Entitic vol] 85.0 fL Normal 79.0-94.5 [facility] Comment on above: Performed By: #### L [id number] ####[facility] (DEFAULT)[address] [facility] [place] [address] Mean Cell Hgb 27.8 pg Normal 26.1-33.3 [facility] Comment on above: Performed By: #### L [id number] ####[facility] (DEFAULT)[address] [facility] [place] [address] Mean Cell Hgb Conc 32.7 g/dL Normal 31.9-36.5 [facility] Comment on above: Performed By: #### L [id number] ####[facility] (DEFAULT)[address] [facility] [place] [address] Monocytes (Bld) [#/Vol] 0.66 10*3/uL Normal 0.24-0.93 [facility] Comment on above: Performed By: #### L [id number] ####[facility] (DEFAULT)[address] [facility] [place] [address] Monocytes/100 WBC (Bld) 13.9 % Normal [facility] Comment on above: Performed By: #### L [id number] ####[facility] (DEFAULT)[address] [place] [address] Nucleated RBC 0.0 /100 WBC Normal <=0.2 [facility] Comment on above: Performed By: #### L [id number] ####[facility] (DEFAULT)[address] [place] [address] Platelet mean volume (Bld) [Entitic vol] 9.3 fL Normal 8.7-12.3 [facility] Comment on above: Performed By: #### L [id number] ####[facility] (DEFAULT)[address] [place] [address] Platelets (Bld) [#/Vol] 262 10*3/uL Normal 146-337 [facility] Comment on above: Performed By: #### L [id number] ####[facility] (DEFAULT)[address] [facility] [place] [address] RBC (Bld) [#/Vol] 4.46 10*6/uL Normal 4.38-5.83 [facility] Comment on above: Performed By: #### L [id number] ####[facility] (DEFAULT)[address] [place] [address] RBC Distribution 13.4 % Normal 10.9-14.3 [facility] Comment on above: Performed By: #### L [id number] ####[facility] (DEFAULT)[address] [place] [address] Segs + Bands Auto 45.7 % [facility] Comment on above: Performed By: #### L [id number] ####[facility] (DEFAULT)[address] [place] [address] Segs + Bands,Absolute Auto 2.16 K/uL Normal 1.57-6.19 [facility] Comment on above: Performed By: #### L [id number] ####[facility] (DEFAULT)[address] [place] [address] WBC (Bld) [#/Vol] 4.74 10*3/uL Normal 3.73-10.10 [facility] Comment on above: Performed By: #### L [id number] ####[facility] (DEFAULT)[address] [place] [address] CHEM 6 (LYTES, BUN CREA)on 0 08-28-2023 Anion gap [Moles/Vol] 13 mmol/L 7 - 17 mmol/L [facility] Chloride [Moles/Vol] 103 mmol/L 98 - 10 8 mmol/L [facility] CO2 [Moles/Vol] 22 mmol/L 21 - 31 mmol/L [facility] Creatinine [Mass/Vol] 1.62 mg/dL High 0.70 - 1.30 mg/dL [facility] eGFR, CKD-EPI, Male 51 Low - PINF [facility] Interpretation and review of laboratory results Abnormal [facility] Potassium [Moles/Vol] 4.3 mmol/L 3.5 - 5.0 mmol/L [facility] Sodium [Moles/Vol] 134 mmol/L Low 135 - 145 mmol/L [facility] Urea nitrogen [Mass/Vol] 22 mg/dL 7 - 25 mg/dL [facility] Urea nitrogen/Creatinine [Mass ratio] 14 mg/mg [facility] Anion gap [Moles/Vol] 13 mmol/L Normal 7-17 [facility] Comment on above: Performed By: #### C HM6 ####[facility] (DEFAULT)[address] [place] [address] Chloride [Moles/Vol] 103 mmol/L Normal 98-108 [facility] Comment on above: Performed By: #### C HM6 ####[facility] (DEFAULT)[address] [place] [address] CO2 [Moles/Vol] 22 mmol/L Normal 21-31 [facility] Comment on above: Performed By: #### C HM6 ####[facility] (DEFAULT)[address] [place] [address] Creatinine [Mass/Vol] 1.62 mg/dL High 0.70-1.30 [facility] Comment on above: Performed By: #### C HM6 ####[facility] (DEFAULT)[address] [place] [address] GFR/1.73 sq M.predicted among non-blacks MDRD (S/P/Bld) [Vol rate/Area] 51 mL/min/{1.73_m2} Low >=60 [facility] Comment on above: Result Comment: Repo rted eGFR is based on the CKD-EPI 2020 equation using creatinine, age, and sex. Performed By: #### C HM6 ####[facility] (DEFAULT)[address] [facility] [place] [address] Potassium [Moles/Vol] 4.3 mmol/L Normal 3.5-5.0 [facility] Comment on above: Performed By: #### C HM6 ####[facility] (DEFAULT)[address] [facility] [place] [address] Sodium [Moles/Vol] 134 mmol/L Low 135-145 [facility] Comment on above: Performed By: #### C HM6 ####[facility] (DEFAULT)[address] [facility] [place] [address] Urea nitrogen [Mass/Vol] 22 mg/dL Normal 7-25 [facility] Comment on above: Performed By: #### C HM6 ####[facility] (DEFAULT)[address] [facility] [place] [address] Urea nitrogen/Creatinine [Mass ratio] 14 mg/mg Normal [facility] Comment on above: Performed By: #### C HM6 ####[facility] (DEFAULT)[address] [place] [address] IMMUNOCOMPROMISED RESPIRATOR Y PANELon 08-28-2023 Adenovirus - Pcr Not detected Normal Not Detected [facility] Comment on above: Order Comment: Viral [...] acid assay. Performed By: #### I CRESP ####[facility] (DEFAULT)[address] [place] [address], [place] [address] Bordetella Parapertussis Not detected Normal Not Detected [facility] Comment on above: Order Comment: Viral [...] acid assay. Performed By: #### I CRESP ####[facility] (DEFAULT)[address] [place] [address], [place] [address] Bordetella Pertussis Not detected Normal Not Detected [facility] Comment on above: Order Comment: Viral [...] acid assay. Performed By: #### I CRESP ####[facility] (DEFAULT)[address] [facility] [place] [address] Chlamydia Pneumoniae Not detected Normal Not Detected [facility] Comment on above: Order Comment: Viral [...] acid assay. Performed By: #### I CRESP ####[facility] (DEFAULT)[address] [place] [address], [place] [address] Coronavirus 229E Not detected Normal Not Detected [facility] Comment on above: Order Comment: Viral [...] acid assay. Performed By: #### I CRESP ####[facility] (DEFAULT)[address] [place] [address], [place] [address] Coronavirus Hku1 Not detected Normal Not Detected [facility] Comment on above: Order Comment: Viral [...] acid assay. Performed By: #### I CRESP ####[facility] (DEFAULT)[address] [facility] [place] [address] Coronavirus Nl63 Not detected Normal Not Detected [facility] Comment on above: Order Comment: Viral [...] acid assay. Performed By: #### I CRESP ####[facility] (DEFAULT)[address] [place] [address], [place] [address] Coronavirus Oc43 Not detected Normal Not Detected [facility] Comment on above: Order Comment: Viral [...] acid assay. Performed By: #### I CRESP ####[facility] (DEFAULT)[address] [place] [address], [place] [address] Influenza A - Pcr Not detected Normal Not Detected [facility] Comment on above: Order Comment: Viral [...] acid assay. Performed By: #### I CRESP ####[facility] (DEFAULT)[address] [place] [address], [place] [address] Influenza B - Pcr Not detected Normal [facility] Comment on above: Order [...] acid assay. Performed By: #### I CRESP ####[facility] (DEFAULT)[address] [place] [address], [place] [address] Metapneumovirus - Pcr Not detected Normal Not Detected [facility] Comment on above: Order Comment: Viral [...] acid assay. Performed By: #### I CRESP ####[facility] (DEFAULT)[address] [place] [address], [place] [address] Mycoplasma Pneumoniae Not detected Normal Not Detected [facility] Comment on above: Order Comment: Viral [...] acid assay. Performed By: #### I CRESP ####[facility] (DEFAULT)[address] [place] [address], [place] [address] Parainfluenza 1 - Pcr Not detected Normal Not Detected [facility] Comment on above: Order Comment: Viral [...] acid assay. Performed By: #### I CRESP ####[facility] (DEFAULT)[address] [address] Parainfluenza 2 - Pcr Not detected Normal Not Detected [facility] Comment on above: Order Comment: Viral [...] acid assay. Performed By: #### I CRESP ####[facility] (DEFAULT)[address] [place] [address], [place] [address] Parainfluenza 3 - Pcr Not detected Normal Not Detected [facility] Comment on above: Order Comment: Viral [...] [facility] (DEFAULT)[address] [place] [address] Parainfluenza 4 - Pcr Not detected Normal Not Detected [facility] Comment on above: Order Comment: Viral [...] acid assay. Performed By: #### I CRESP ####[facility] (DEFAULT)[address] [address] Rhinovirus/Enterovir us - PCR Not detected Normal Not Detected [facility] Comment on above: Order Comment: Viral [...] acid assay. Performed By: #### I CRESP ####[facility] (DEFAULT)[address] [place] [address] Rsv - Pcr Not detected Normal Not Detected [facility] Comment on above: Order Comment: Viral [...] acid assay. Performed By: #### I CRESP ####[facility] (DEFAULT)[address] [place] [address] SARS-CoV-2 (COVID-19) RNA ESTELITA+probe Ql (Unsp spec) Not detected Normal NOT DETECTED [facility] Comment on above: Order Comment: Viral [...] acid assay. Performed By: #### I CRESP ####[facility] (DEFAULT)[address] [place] [address] Portable XR Chest Viewson Radiology Study [facility]ative[facility]+RNA NA A+probe Nom (Unsp spec)Ordered By: Dayami Harris on 08-28-2023 Adenovirus DNA ESTELITA+probe Nom (Unsp spec) Not detected Not Detected [facility] B. parapertussis DNA ESTELITA+probe Ql (Unsp spec) Not detected Not Detected [facility] B. pertussis DNA ESTELITA+probe Ql (Unsp spec) Not detected Not Detected [facility] C. pneumoniae DNA ESTELITA+probe Ql (Unsp spec) Not detected Not Detected [facility] FLUAV RNA ESTELITA+probe Ql (Unsp spec) Not detected Not Detected [facility] FLUBV RNA ESTELITA+probe Ql (Unsp spec) Not detected Not Detected [facility] HCoV 229E RNA ESTELITA+non-probe Ql (Nph) Not detected Not Detected [facility] HCoV HKU1 RNA ESTELITA+non-probe Ql (Nph) Not detected Not Detected [facility] HCoV NL63 RNA ESTELITA+non-probe Ql (Nph) Not detected Not Detected [facility] HCoV OC43 RNA ESTELITA+non-probe Ql (Nph) Not detected Not Detected [facility] hMPV A RNA ESTELITA+probe Ql (Unsp spec) Not detected Not Detected [facility] Interpretation and review of laboratory results Normal [facility] M. pneumoniae DNA ESTELITA+probe Ql (Unsp spec) Not detected Not [facility] Parainfluenza virus 1 RNA ESTELITA+probe Ql (Unsp spec) Not detected Not [facility] Parainfluenza virus 2 RNA ESETLITA+probe Ql (Unsp spec) Not detected Not [facility]ed [facility] Parainfluenza virus 3 RNA ESTELITA+probe Ql (Unsp spec) Not detected Not Detected [facility] Parainfluenza virus 4 RNA ESTELITA+probe Ql (Unsp spec) Not detected Not Detected [facility] Rhinovirus+Enterovir us RNA ESTELITA+probe Ql (Unsp spec) Not detected Not Detected [facility] RSV RNA ESTELITA+probe Ql (Unsp spec) Not detected Not Detected [facility] SARS-CoV-2 (COVID-19) RNA ESTELITA+probe Ql (Unsp spec) Not detected [facility]ED [facility]23 Albumin [Mass/Vol] 4.0 g/dL Normal 3.4-5.[address] [facility] Comment on above: Performed By: #### C MP #### [facility] [address] [place] [address] Dr. Dwight Waters ALKALINE PHOSPHAon ALP [Catalytic activity/Vol] 106 U/L Normal 46-116 [facility] Comment on above: Performed By: #### F [id number] #### [facility] [address] [place] [address] Dr. Dwight Waters BILIRUBIN CONJUGATED (DIRECT )on 04-28-2023 BILI, CONJUGATED 0.3 mg/dL Critically high 0.0-0.2 [facility] Comment on above: Performed By: #### C MP #### [facility] [address] [place] [address] Dr. Dwight Waters BILIRUBIN TOTALon 04-28-2023 Bilirubin [Mass/Vol] 1.4 mg/dL Critically high 0.2-1.0 [facility] Comment on above: Performed By: #### C MP #### [facility] [address] [place] [address] Dr. Dwight Waters BUNon 04-28-2023 Urea nitrogen [Mass/Vol] 12.0 mg/dL Normal 7.0-18.0 [facility] Comment on above: Performed By: #### U RTPCR #### [facility] [address] [place] [address] Dr. Dwight Waters CALCIUMon 04-28-2023 Calcium [Mass/Vol] 9.3 mg/dL Normal 8.5-10.1 [facility] Comment on above: Performed By: #### U RTPCR #### [facility] [address] [place] [address] Dr. Dwight Waters CBC AUTO DIFFon 04-28-2023 BASO # 0.1 103/ul Normal 0.0-0.[address] [facility] Comment on above: Performed By: #### C BC #### [facility] [address] [place] [address] Dr. Dwight Waters Basophils/100 WBC (Bld) 0.9 % Normal 0.2-2.[address] [facility] Comment on above: Performed By: #### C BC #### [facility] [address] [place] [address] Dr. Dwight Waters EO # 0.2 103/ul Normal 0.0-0.7 [facility] Comment on above: Performed By: #### C BC #### [facility] [address] [place] [address] Dr. Dwight Waters Eosinophils/100 WBC (Bld) 3.8 % Normal 0.9-7.0 [facility] Comment on above: Performed By: #### C BC #### [facility] [address] [place] [address] Dr. Dwight Waters Erythrocyte distribution width (RBC) [Ratio] 12.5 % Normal 11.0-15.0 [facility] Comment on above: Performed By: #### C BC #### [facility] [address] [place] [address] Dr. Dwight Waters Hematocrit (Bld) [Volume fraction] 49.8 % Normal 42.0-54.[address] [facility] Comment on above: Performed By: #### C BC #### [facility] [address] [place] [address] Dr. Dwight Waters Hemoglobin (Bld) [Mass/Vol] 16.4 g/dL Normal 14.0-18.[address] [facility] Comment on above: Performed By: #### C BC #### [facility] [address] [place] [address] Dr. Dwight Waters IG # 0.01 10e3/ul Normal 0.00-0.[address] [facility] Comment on above: Performed By: #### C BC #### [facility] [address] [place] [address] Dr. Dwight Waters IG % 0.2 % Normal 0.0-0.[address] [facility] Comment on above: Performed By: #### C BC #### [facility] [address] [place] [address] Dr. Dwight Waters LYMPH # 2.1 103/ul Normal 1.2-3.[address] [facility] Comment on above: Performed By: #### C BC #### [facility] [address] [place] [address] Dr. Dwight Waters Lymphocytes/100 WBC (Bld) 39.1 % Normal 20.5-60.[address] [facility] Comment on above: Performed By: #### C BC #### [facility] [address] [place] [address] Dr. Dwight Waters MANUAL DIFF REQ NO Normal [facility] Comment on above: Performed By: #### C BC #### [facility] [address] [place] [address] Dr. Dwight Waters MCH (RBC) [Entitic mass] 28.6 pg Normal 25.9-34.[address] [facility] Comment on above: Performed By: #### C BC #### [facility] [address] [place] [address] Dr. Dwight Waters MCHC (RBC) [Mass/Vol] 32.9 g/dL Normal 29.9-35.2 [facility] Comment on above: Performed By: #### C BC #### [facility] [address] [place] [address] Dr. Dwight Waters MCV (RBC) [Entitic vol] 86.9 fL Normal 80.0-94.[address] [facility] Comment on above: Performed By: #### C BC #### [facility] [address] [place] [address] Dr. Dwight Waters MONO # 0.6 103/ul Normal 0.3-0.8 [facility] Comment on above: Performed By: #### C BC #### [facility] [address] [place] [address] Dr. Dwight Waters Monocytes/100 WBC (Bld) 10.6 % Normal 1.7-12.0 [facility] Comment on above: Performed By: #### C BC #### [facility] [address] [place] [address] Dr. Dwight Waters NEUT # 2.5 103/ul Normal 1.4-6.[address] [facility] Comment on above: Performed By: #### C BC #### [facility] [address] [place] [address] Dr. Dwight Waters Neutrophils/100 WBC (Bld) 45.4 % Normal 43.0-75.0 [facility] Comment on above: Performed By: #### C BC #### [facility] [address] [place] [address] Dr. Dwight Waters Platelet mean volume (Bld) [Entitic vol] 9.3 fL Critically low 9.5-13.5 [facility] Comment on above: Performed By: #### C BC #### [facility] [address] [place] [address] Dr. Dwight Waters PLT 248 103/ul Normal 150-450 [facility] Comment on above: Performed By: #### C BC #### [facility] [address] [place] [address] Dr. Dwight Waters RBC 5.73 106/ul Normal 4.70-6.10 [facility] Comment on above: Performed By: #### C BC #### [facility] [address] [place] [address] Dr. Dwight Waters WBC 5.5 103/ul Normal 4.0-11.[address] [facility] Comment on above: Performed By: #### C BC #### [facility] [address] [place] [address] Dr. Dwight Waters CHLORIDEon 04-28-2023 Chloride [Moles/Vol] 107 mmol/L Normal 98-107 [facility] Comment on above: Performed By: #### U RTPCR #### [facility] [address] [place] [address] Dr. Dwight Waters CO2on 04-28-2023 CO2 [Moles/Vol] 28.9 mmol/L Normal 21.0-32.[address] [facility] Comment on above: Performed By: #### U RTPCR #### [facility] [address] [place] [address] Dr. Dwight Waters CREATININEon 04-28-2023 Creatinine [Mass/Vol] 1.17 mg/dL Normal 0.70-1.[address] [facility] Comment on above: Performed By: #### U RTPCR #### [facility] [address] [place] [address] Dr. Dwight Waters EGFR-AF COLOMBIAN >60 Normal >=60 [facility] Comment on above: Performed By: #### U RTPCR #### [facility] [address] [place] [address] Dr. Dwight Waters EGFR-NON AF COLOMBIAN >60 Normal >=[address] [facility] Comment on above: Performed By: #### U RTPCR #### [facility] [address] [place] [address] Dr. Dwight Waters GGTon 04-28-2023 Gamma glutamyl transferase [Catalytic activity/Vol] 27 U/L Normal 15-85 [facility] Comment on above: Performed By: #### U RTPCR #### [facility] [address] [place] [address] Dr. Dwight Waters GLUCOSE BLOODon 04-28-2023 Glucose [Mass/Vol] 110 mg/dL Critically high 74-106 [facility] Comment on above: Performed By: #### U RTPCR #### [facility] [address] [place] [address] Dr. Dwight Waters MAGNESIUMon 04-28-2023 Magnesium [Mass/Vol] 1.7 mg/dL Critically low 1.8-2.[address] [facility] Comment on above: Performed By: #### U RTPCR #### [facility] [address] [place] [address] Dr. Dwight Waters NAon 04-28-2023 Sodium [Moles/Vol] 144 mmol/L Normal 136-[address] [facility] Comment on above: Performed By: #### U RTPCR #### [facility] [address] [place] [address] Dr. Dwight Waters PHOSPHORUSon 04-28-2023 Phosphate [Mass/Vol] 3.2 mg/dL Normal 2.6-4.[address] [facility] Comment on above: Performed By: #### U RTPCR #### [facility] [address] [place] [address] Dr. Dwight Waters POTASSIUMon 04-28-2023 Potassium [Moles/Vol] 4.0 mmol/L Normal 3.5-5.[address] [facility] Comment on above: Performed By: #### U RTPCR #### [facility] [address] [place] [address] Dr. Dwight Waters SGOTon 04-28-2023 AST [Catalytic activity/Vol] 25 U/L Normal 15-[address] [facility] Comment on above: Performed By: #### C MP #### [facility] [address] [place] [address] Dr. Dwight Waters SGPTon 04-28-2023 ALT [Catalytic activity/Vol] 40 U/L Normal 16-[address] [facility] Comment on above: Performed By: #### C MP #### [facility] [address] [place] [address] Dr. Dwight Waters URINE T PROTEIN CREAT RATIOo n 04-28-2023 Protein (U) [Mass/Vol] 10.1 mg/dL Normal <=12.[address] [facility] Comment on above: Performed By: #### U RTPCR #### [facility] [address] [place] [address] Dr. Dwight Waters UR PROT CREAT RAT 0.[address] [facility] Comment on above: Performed By: #### U RTPCR #### [facility] [address] [place] [address] Dr. Dwight Waters URINE CREAT 74.40 mg/dL Normal 20.00-300.[address] [facility] Comment on above: Performed By: #### U RTPCR #### [facility] [address] [place] [address] Dr. Dwight Waters BK VIRUS PCR QUANTon 023 BKV DNA QUANT PCR PLASMA Negative Normal Negative [facility] Comment on above: Result Comment: No B K DNA detected. . The linear range of the assay is 22 - 100,000,000 IU/mL. Performed By: #### B KVIRUS #### [facility] [address] [place] [address] Dr. Dwight Waters Log10 BKV DNA Plasma Normal [facility] Comment on above: Performed By: #### B KVIRUS #### [facility] [address] [place] [address] Dr. Dwight Waters FK506 (TACROLIMUS) WHOLE BLO ODon 03-04-2023 Tacrolimus (FK506), Blood 5.9 ng/mL Normal 2.0-20.[address] [facility] Comment on above: Result Comment: Trou gh (immediately following transplant) 15.0 . Trough (steady state, 2 weeks or more after transplant): 3.0 - 8.0 . Performed by LC-MS/MS technology. Performed By: #### C MP #### [facility] [address] [place] [address] Dr. Dwight Waters ALBUMINon 03-02-2023 Albumin [Mass/Vol] 3.9 g/dL Normal 3.4-5.[address] [facility] Comment on above: Performed By: #### U RTPCR #### [facility] [address] [place] [address] Dr. Dwight Waters ALKALINE PHOSPHAon ALP [Catalytic activity/Vol] 105 U/L Normal 46-116 [facility] Comment on above: Performed By: #### U RTPCR #### [facility] [address] [place] [address] Dr. Dwight Waters BILIRUBIN CONJUGATED (DIRECT )on 03-02-2023 BILI, CONJUGATED 0.2 mg/dL Normal 0.0-0.[address] [facility] Comment on above: Performed By: #### U RTPCR #### [facility] [address] [place] [address] Dr. Dwight Waters BILIRUBIN TOTALon 03-02-2023 Bilirubin [Mass/Vol] 0.9 mg/dL Normal 0.2-1.[address] [facility] Comment on above: Performed By: #### U RTPCR #### [facility] [address] [place] [address] Dr. Dwight Waters CBC AUTO DIFFon 03-02-2023 BASO # 0.1 103/ul Normal 0.0-0.[address] [facility] Comment on above: Performed By: #### C BC #### [facility] [address] [place] [address] Dr. Dwight Waters Basophils/100 WBC (Bld) 0.9 % Normal 0.2-2.[address] [facility] Comment on above: Performed By: #### C BC #### [facility] [address] [place] [address] Dr. Dwight Waters EO # 0.2 103/ul Normal 0.0-0.7 [facility] Comment on above: Performed By: #### C BC #### [facility] [address] [place] [address] Dr. Dwight Waters Eosinophils/100 WBC (Bld) 3.5 % Normal 0.9-7.[address] [facility] Comment on above: Performed By: #### C BC #### [facility] [address] [place] [address] Dr. Dwight Waters Erythrocyte distribution width (RBC) [Ratio] 12.7 % Normal 11.0-15.[address] [facility] Comment on above: Performed By: #### C BC #### [facility] [address] [place] [address] Dr. Dwight Waters Hematocrit (Bld) [Volume fraction] 48.2 % Normal 42.0-54.[address] [facility] Comment on above: Performed By: #### C BC #### [facility] [address] [place] [address] Dr. Dwight Waters Hemoglobin (Bld) [Mass/Vol] 15.9 g/dL Normal 14.0-18.[address] [facility] Comment on above: Performed By: #### C BC #### [facility] [address] [place] [address] Dr. Dwight Waters IG # 0.01 10e3/ul Normal 0.00-0.[address] [facility] Comment on above: Performed By: #### C BC #### [facility] [address] [place] [address] Dr. Dwight Waters IG % 0.2 % Normal 0.0-0.[address] [facility] Comment on above: Performed By: #### C BC #### [facility] [address] [place] [address] Dr. Dwight Waters LYMPH # 2.1 103/ul Normal 1.2-3.[address] [facility] Comment on above: Performed By: #### C BC #### [facility] [address] [place] [address] Dr. Dwight Waters Lymphocytes/100 WBC (Bld) 37.4 % Normal 20.5-60.[address] [facility] Comment on above: Performed By: #### C BC #### [facility] [address] [place] [address] Dr. Dwight Waters MANUAL DIFF REQ NO Normal [facility] Comment on above: Performed By: #### C BC #### [facility] [address] [place] [address] Dr. Dwight Waters MCH (RBC) [Entitic mass] 28.3 pg Normal 25.9-34.[address] [facility] Comment on above: Performed By: #### C BC #### [facility] [address] [address] [address] Dwight Waters MCHC (RBC) [Mass/Vol] 33.0 g/dL Normal 29.9-35.[address] [facility] Comment on above: Performed By: #### C BC #### [facility] [address] [address] [address] Dwight Waters MCV (RBC) [Entitic vol] 85.8 fL Normal 80.0-94.[address] [facility] Comment on above: Performed By: #### C BC #### [facility] [address] [address] [address] Dwight aWters MONO # 0.6 103/ul Normal 0.3-0.[address] [facility] Comment on above: Performed By: #### C BC #### [facility] [address] [place] [address] Dr. Dwight Waters Monocytes/100 WBC (Bld) 10.2 % Normal 1.7-12.[address] [facility] Comment on above: Performed By: #### C BC #### [facility] [address] [place] [address] Dr. Dwight Waters NEUT # 2.7 103/ul Normal 1.4-6.[address] [facility] Comment on above: Performed By: #### C BC #### [facility] [address] [place] [address] Dr. Dwight Waters Neutrophils/100 WBC (Bld) 47.8 % Normal 43.0-75.0 [facility] Comment on above: Performed By: #### C BC #### [facility] [address] [address] [address] Dwight Waters Platelet mean volume (Bld) [Entitic vol] 9.3 fL Critically low 9.5-13.[address] [facility] Comment on above: Performed By: #### C BC #### [facility] [address] [place] [address] Dr. Dwight Waters PLT 241 103/ul Normal 150-450 [facility] Comment on above: Performed By: #### C BC #### [facility] [address] [place] [address] Dr. Dwight Waters RBC 5.62 106/ul Normal 4.70-6.10 [facility] Comment on above: Performed By: #### C BC #### [facility] [address] [place] [address] Dr. Dwight Waters WBC 5.7 103/ul Normal 4.0-11.0 [facility] Comment on above: Performed By: #### C BC #### [facility] [address] [place] [address] Dr. Dwight Waters GGTon 03-02-2023 Gamma glutamyl transferase [Catalytic activity/Vol] 25 U/L Normal 15-[address] [facility] Comment on above: Performed By: #### U RTPCR #### [facility] [address] [place] [address] Dr. Dwight Waters MAGNESIUMon 03-02-2023 Magnesium [Mass/Vol] 1.6 mg/dL Critically low 1.8-2.4 [facility] Comment on above: Performed By: #### U RTPCR #### [facility] [address] [place] [address] Dr. Dwight Waters PHOSPHORUSon 03-02-2023 Phosphate [Mass/Vol] 3.6 mg/dL Normal 2.6-4.[address] [facility] Comment on above: Performed By: #### U RTPCR #### [facility] [address] [place] [address] Dr. Dwight Waters PROF CHEM 8 (BAS METB)on Anion gap [Moles/Vol] 9.4 mmol/L Normal [facility] Comment on above: Performed By: #### U RTPCR #### [facility] [address] [place] [address] Dr. Dwight Waters Calcium [Mass/Vol] 9.3 mg/dL Normal 8.5-10.[address] [facility] Comment on above: Performed By: #### U RTPCR #### [facility] [address] [place] [address] Dr. Dwight Waters Chloride [Moles/Vol] 108 mmol/L Critically high 98-[address] [facility] Comment on above: Performed By: #### U RTPCR #### [facility] [address] [place] [address] Dr. Dwight Waters CO2 [Moles/Vol] 27.2 mmol/L Normal 21.0-32.[address] [facility] Comment on above: Performed By: #### U RTPCR #### [facility] [address] [address] [address] Dwight Waters Creatinine [Mass/Vol] 1.12 mg/dL Normal 0.70-1.[address] [facility] Comment on above: Performed By: #### U RTPCR #### [facility] [address] [place] [address] Dr. Dwight Waters EGFR-AF COLOMBIAN >60 Normal >=[address] [facility] Comment on above: Performed By: #### U RTPCR #### [facility] [address] [place] [address] Dr. Dwight Waters EGFR-NON AF COLOMBIAN >60 Normal >=[address] [facility] Comment on above: Performed By: #### U RTPCR #### [facility] [address] [place] [address] Dr. Dwight Waters Glucose [Mass/Vol] 113 mg/dL Critically high 74-106 [facility] Comment on above: Performed By: #### U RTPCR #### [facility] [address] [place] [address] Dr. Dwight Waters Potassium [Moles/Vol] 3.6 mmol/L Normal 3.5-5.[address] [facility] Comment on above: Performed By: #### U RTPCR #### [facility] [address] [address] [address] Dwight Waters Sodium [Moles/Vol] 141 mmol/L Normal 136-145 [facility] Comment on above: Performed By: #### U RTPCR #### [facility] [address] [place] [address] Dr. Dwight Waters Urea nitrogen [Mass/Vol] 14.0 mg/dL Normal 7.0-18.[address] [facility] Comment on above: Performed By: #### U RTPCR #### [facility] [address] [place] [address] Dr. Dwight Waters Urea nitrogen/Creatinine [Mass ratio] 12.5 mg/mg Normal [facility] Comment on above: Performed By: #### U RTPCR #### [facility] [address] [place] [address] Dr. Dwight OLVERAOTon 03-02-2023 AST [Catalytic activity/Vol] 20 U/L Normal 15-[address] [facility] Comment on above: Performed By: #### U RTPCR #### [facility] [address] [place] [address] Dr. Dwight Waters SGPTon 03-02-2023 ALT [Catalytic activity/Vol] 30 U/L Normal 16-[address] [facility] Comment on above: Performed By: #### U RTPCR #### [facility] [address] [place] [address] Dr. Dwight Waters URINE T PROTEIN CREAT RATIOo n 03-02-2023 Protein (U) [Mass/Vol] 10.3 mg/dL Normal <=12.[address] [facility] Comment on above: Performed By: #### U RTPCR #### [facility] [address] [place] [address] Dr. Dwight Waters UR PROT CREAT RAT 0.15 Normal [facility] Comment on above: Performed By: #### U RTPCR #### [facility] [address] [place] [address] Dr. Dwight Waters URINE CREAT 68.96 mg/dL Normal 20.00-300.[address] [facility] Comment on above: Performed By: #### U RTPCR #### [facility] [address] [place] [address] Dr. Dwight Waters BK VIRUS PCR QUANTon 023 BKV DNA QUANT PCR PLASMA Negative Normal Negative [facility] Comment on above: Result Comment: No B K DNA detected. . The linear range of the assay is 22 - 100,000,000 IU/mL. Performed By: #### C MP #### [facility] [address] [place] [address] Dr. Dwight Waters Log10 BKV DNA Plasma Normal [facility] Comment on above: Performed By: #### C MP #### [facility] [address] [place] [address] Dr. Dwight Waters FK506 (TACROLIMUS) WHOLE BLO ODon 12-31-2022 Tacrolimus (FK506), Blood 5.6 ng/mL Normal 2.0-20.0 [facility] Comment on above: Result Comment: Trou gh (immediately following transplant) 15.0 . Trough (steady state, 2 weeks or more after transplant): 3.0 - 8.0 . Performed by LC-MS/MS technology. Performed By: #### C MP #### [facility] [address] [place] [address] Dr. Dwight Waters ALKALINE PHOSPHAon ALP [Catalytic activity/Vol] 96 U/L Normal 46-116 [facility] Comment on above: Performed By: #### C BC #### [facility] [address] [place] [address] Dr. Dwight Waters BILIRUBIN CONJUGATED (DIRECT )on 12-29-2022 BILI, CONJUGATED 0.3 mg/dL Critically high 0.0-0.[address] [facility] Comment on above: Performed By: #### C BC #### [facility] [address] [place] [address] Dr. Dwight Waters BILIRUBIN TOTALon 12-29-2022 Bilirubin [Mass/Vol] 1.1 mg/dL Critically high 0.2-1.[address] [facility] Comment on above: Performed By: #### C BC #### [facility] [address] [place] [address] Dr. Dwight Waters CBC AUTO DIFFon 12-29-2022 BASO # 0.1 103/ul Normal 0.0-0.1 [facility] Comment on above: Performed By: #### C MP #### [facility] [address] [place] [address] Dr. Dwight Waters Basophils/100 WBC (Bld) 0.8 % Normal 0.2-2.0 [facility] Comment on above: Performed By: #### C MP #### [facility] [address] [address] [address] Dwight Waters EO # 0.2 103/ul Normal 0.0-0.[address] [facility] Comment on above: Performed By: #### C MP #### [facility] [address] [address] [address] Dwight Waters Eosinophils/100 WBC (Bld) 3.0 % Normal 0.9-7.[address] [facility] Comment on above: Performed By: #### C MP #### [facility] [address] [place] [address] Dr. Dwight Waters Erythrocyte distribution width (RBC) [Ratio] 12.9 % Normal 11.0-15.[address] [facility] Comment on above: Performed By: #### C MP #### [facility] [address] [place] [address] Dr. Dwight Waters Hematocrit (Bld) [Volume fraction] 46.9 % Normal 42.0-54.[address] [facility] Comment on above: Performed By: #### C MP #### [facility] [address] [place] [address] Dr. Dwight Waters Hemoglobin (Bld) [Mass/Vol] 16.1 g/dL Normal 14.0-18.[address] [facility] Comment on above: Performed By: #### C MP #### [facility] [address] [place] [address] Dr. Dwight Waters IG # 0.01 10e3/ul Normal 0.00-0.[address] [facility] Comment on above: Performed By: #### C MP #### [facility] [address] [address] [address] Dwight Waters IG % 0.2 % Normal 0.0-0.5 [facility] Comment on above: Performed By: #### C MP #### [facility] [address] [place] [address] Dr. Dwight Waters LYMPH # 1.8 103/ul Normal 1.2-3.[address] [facility] Comment on above: Performed By: #### C MP #### [facility] [address] [place] [address] Dr. Dwight Waters Lymphocytes/100 WBC (Bld) 27.9 % Normal 20.5-60.[address] [facility] Comment on above: Performed By: #### C MP #### [facility] [address] [place] [address] Dr. Dwight Waters MANUAL DIFF REQ NO Normal [facility] Comment on above: Performed By: #### C MP #### [facility] [address] [place] [address] Dr. Dwight Waters MCH (RBC) [Entitic mass] 28.5 pg Normal 25.9-34.[address] [facility] Comment on above: Performed By: #### C MP #### [facility] [address] [place] [address] Dr. Dwight Waters MCHC (RBC) [Mass/Vol] 34.3 g/dL Normal 29.9-35.[address] [facility] Comment on above: Performed By: #### C MP #### [facility] [address] [place] [address] Dr. Dwight Waters MCV (RBC) [Entitic vol] 83.2 fL Normal 80.0-94.[address] [facility] Comment on above: Performed By: #### C MP #### [facility] [address] [place] [address] Dr. Dwight Waters MONO # 0.5 103/ul Normal 0.3-0.8 [facility] Comment on above: Performed By: #### C MP #### [facility] [address] [place] [address] Dr. Dwight Waters Monocytes/100 WBC (Bld) 8.1 % Normal 1.7-12.0 [facility] Comment on above: Performed By: #### C MP #### [facility] [address] [place] [address] Dr. Dwight Waters NEUT # 3.8 103/ul Normal 1.4-6.5 [facility] Comment on above: Performed By: #### C MP #### [facility] [address] [place] [address] Dr. Dwight Waters Neutrophils/100 WBC (Bld) 60.0 % Normal 43.0-75.0 [facility] Comment on above: Performed By: #### C MP #### [facility] [address] [address] [address] Dwight Waters Platelet mean volume (Bld) [Entitic vol] 9.2 fL Critically low 9.5-13.5 [facility] Comment on above: Performed By: #### C MP #### [facility] [address] [address] [address] Dwight Waters PLT 225 103/ul Normal 150-450 [facility] Comment on above: Performed By: #### C MP #### [facility] [address] [place] [address] Dr. Dwight Waters RBC 5.64 106/ul Normal 4.70-6.10 [facility] Comment on above: Performed By: #### C MP #### [facility] [address] [place] [address] Dr. Dwight Waters WBC 6.3 103/ul Normal 4.0-11.0 [facility] Comment on above: Performed By: #### C MP #### [facility] [address] [place] [address] Dr. Dwight Waters GGTon 12-29-2022 Gamma glutamyl transferase [Catalytic activity/Vol] 24 U/L Normal 15-85 [facility] Comment on above: Performed By: #### C MP #### [facility] [address] [place] [address] Dr. Dwight Waters LIPID PROFILEon 12-29-2022 CHOL-HDL RATIO NORM SEE BELOW Normal [facility] Comment on above: Result Comment: 3.3 - 4.4 LOW RISK 4.4 - 7.1 AVERAGE RISK 7.1 - 11.0 MODERATE RISK >11.0 HIGH RISK Performed By: #### U RTPCR #### [facility] [address] [place] [address] Dr. Dwight Waters Cholesterol [Mass/Vol] 87 mg/dL Normal <=200 [facility] Comment on above: Performed By: #### U RTPCR #### [facility] [address] [address] [address] Dwight Waters Cholesterol in HDL [Mass/Vol] 44 mg/dL Normal 40-[address] [facility] Comment on above: Performed By: #### U RTPCR #### [facility] [address] [address] [address] Dwight Waters Cholesterol in LDL [Mass/Vol] 33.0 mg/dL Normal [facility] Comment on above: Performed By: #### U RTPCR #### [facility] [address] [place] [address] Dr. Dwight Waters Cholesterol.total/Ch olesterol in HDL [Mass ratio] 2.0 {ratio} Normal [facility] Comment on above: Performed By: #### U RTPCR #### [facility] [address] [place] [address] Dr. Dwight Waters HDL NORMAL > or = 60 mg/dl - LO W CARDIOVASCULAR RISK <40 mg/dl - HIGH CARDIOVASCULAR RISK Normal [facility] Comment on above: Performed By: #### U RTPCR #### [facility] [address] [place] [address] Dr. Dwight Waters LDL CALC NORMAL SEE BELOW Normal [facility] Comment on above: Result Comment: <100 mg/dl OPTIMAL 100 - 129 mg/dl NEAR OR ABOVE OPTIMAL 130 - 159 mg/dl BORDERLINE HIGH 160 - 189 mg/dl HIGH >190 mg/dl VERY HIGH Performed By: #### U RTPCR #### [facility] [address] [place] [address] Dr. Dwight Waters Triglyceride [Mass/Vol] 50 mg/dL Normal <=150 [facility] Comment on above: Performed By: #### U RTPCR #### [facility] [address] [place] [address] Dr. Dwight Waters VLDL CALC 10.0 mg/dL Normal [facility] Comment on above: Performed By: #### U RTPCR #### [facility] [address] [place] [address] Dr. Dwight Waters MAGNESIUMon 12-29-2022 Magnesium [Mass/Vol] 1.6 mg/dL Critically low 1.8-2.[address] [facility] Comment on above: Performed By: #### C BC #### [facility] [address] [place] [address] Dr. Dwight Waters RENAL FUNCTION PANELon 12-29 Albumin [Mass/Vol] 3.9 g/dL Normal 3.4-5.0 [facility] Comment on above: Performed By: #### C BC #### [facility] [address] [place] [address] Dr. Dwight Waters Calcium [Mass/Vol] 9.2 mg/dL Normal 8.5-10.1 [facility] Comment on above: Performed By: #### C BC #### [facility] [address] [place] [address] Dr. Dwight Waters Chloride [Moles/Vol] 109 mmol/L Critically high 98-107 [facility] Comment on above: Performed By: #### C BC #### [facility] [address] [place] [address] Dr. Dwight Waters CO2 [Moles/Vol] 27.0 mmol/L Normal 21.0-32.[address] [facility] Comment on above: Performed By: #### C BC #### [facility] [address] [place] [address] Dr. Dwight Waters Creatinine [Mass/Vol] 1.02 mg/dL Normal 0.70-1.30 [facility] Comment on above: Performed By: #### C BC #### [facility] [address] [place] [address] Dr. Dwight Waters EGFR-AF COLOMBIAN >60 Normal >=60 [facility] Comment on above: Performed By: #### C BC #### [facility] [address] [place] [address] Dr. Dwight Waters EGFR-NON AF COLOMBIAN >60 Normal >=60 [facility] Comment on above: Performed By: #### C BC #### [facility] [address] [place] [address] Dr. Dwight Waters Glucose [Mass/Vol] 117 mg/dL Critically high 74-106 [facility] Comment on above: Performed By: #### C BC #### [facility] [address] [place] [address] Dr. Dwight Waters Phosphate [Mass/Vol] 3.2 mg/dL Normal 2.6-4.[address] [facility] Comment on above: Performed By: #### C BC #### [facility] [address] [place] [address] Dr. Dwight Waters Potassium [Moles/Vol] 4.1 mmol/L Normal 3.5-5.[address] [facility] Comment on above: Performed By: #### C BC #### [facility] [address] [place] [address] Dr. Dwight Waters Sodium [Moles/Vol] 144 mmol/L Normal 136-[address] [facility] Comment on above: Performed By: #### C BC #### [facility] [address] [place] [address] Dr. Dwight Waters Urea nitrogen [Mass/Vol] 13.0 mg/dL Normal 7.0-18.[address] [facility] Comment on above: Performed By: #### C BC #### [facility] [address] [place] [address] Dr. Dwight Waters SGOTon 12-29-2022 AST [Catalytic activity/Vol] 21 U/L Normal 15-[address] [facility] Comment on above: Performed By: #### C BC #### [facility] [address] [place] [address] Dr. Dwight Waters SGPTon 12-29-2022 ALT [Catalytic activity/Vol] 32 U/L Normal 16-63 [facility] Comment on above: Performed By: #### C BC #### [facility] [address] [place] [address] Dr. Dwight Waters URINE T PROTEIN CREAT RATIOo n 12-29-2022 Protein (U) [Mass/Vol] 14.3 mg/dL Critically high <=12.[address] [facility] Comment on above: Performed By: #### U RTPCR #### [facility] [address] [place] [address] Dr. Dwight Waters UR PROT CREAT RAT 0.17 Normal [facility] Comment on above: Performed By: #### U RTPCR #### [facility] [address] [place] [address] Dr. Dwight Waters URINE CREAT 86.58 mg/dL Normal 20.00-300.00 [facility] Comment on above: Performed By: #### U RTPCR #### [facility] [address] [place] [address] Dr. Dwight Waters FK506 (TACROLIMUS) WHOLE BLO ODon 11-06-2022 Tacrolimus (FK506), Blood 4.9 ng/mL Normal 2.0-20.0 [facility] Comment on above: Result Comment: Trou gh (immediately following transplant) 15.0 . Trough (steady state, 2 weeks or more after transplant): 3.0 - 8.0 . Performed by LC-MS/MS technology. Performed By: #### U RTPCR #### [facility] [address] [place] [address] Dr. Dwight Waters ALKALINE PHOSPHAon ALP [Catalytic activity/Vol] 86 U/L Normal 46-116 [facility] Comment on above: Performed By: #### U RTPCR #### [facility] [address] [place] [address] Dr. Dwight Waters BILIRUBIN CONJUGATED (DIRECT )on 11-04-2022 BILI, CONJUGATED 0.2 mg/dL Normal 0.0-0.2 [facility] Comment on above: Performed By: #### U RTPCR #### [facility] [address] [place] [address] Dr. Dwight Waters BILIRUBIN TOTALon 11-04-2022 Bilirubin [Mass/Vol] 0.8 mg/dL Normal 0.2-1.0 [facility] Comment on above: Performed By: #### U RTPCR #### [facility] [address] [place] [address] Dr. Dwight Waters CBC AUTO DIFFon 11-04-2022 BASO # 0.1 103/ul Normal 0.0-0.1 [facility] Comment on above: Performed By: #### U RTPCR #### [facility] [address] [place] [address] Dr. Dwight Waters Basophils/100 WBC (Bld) 0.9 % Normal 0.2-2.[address] [facility] Comment on above: Performed By: #### U RTPCR #### [facility] [address] [place] [address] Dr. Dwight Waters EO # 0.2 103/ul Normal 0.0-0.[address] [facility] Comment on above: Performed By: #### U RTPCR #### [facility] [address] [place] [address] Dr. Dwight Waters Eosinophils/100 WBC (Bld) 3.7 % Normal 0.9-7.[address] [facility] Comment on above: Performed By: #### U RTPCR #### [facility] [address] [place] [address] Dr. Dwight Waters Erythrocyte distribution width (RBC) [Ratio] 12.9 % Normal 11.0-15.[address] [facility] Comment on above: Performed By: #### U RTPCR #### [facility] [address] [place] [address] Dr. Dwight Waters Hematocrit (Bld) [Volume fraction] 48.3 % Normal 42.0-54.[address] [facility] Comment on above: Performed By: #### U RTPCR #### [facility] [address] [place] [address] Dr. Dwight Waters Hemoglobin (Bld) [Mass/Vol] 15.6 g/dL Normal 14.0-18.[address] [facility] Comment on above: Performed By: #### U RTPCR #### [facility] [address] [place] [address] Dr. Dwight Waters IG # 0.01 10e3/ul Normal 0.00-0.[address] [facility] Comment on above: Performed By: #### U RTPCR #### [facility] [address] [place] [address] Dr. Dwight Waters IG % 0.2 % Normal 0.0-0.[address] [facility] Comment on above: Performed By: #### U RTPCR #### [facility] [address] [place] [address] Dr. Dwight Waters LYMPH # 1.9 103/ul Normal 1.2-3.[address] [facility] Comment on above: Performed By: #### U RTPCR #### [facility] [address] [place] [address] Dr. Dwight Waters Lymphocytes/100 WBC (Bld) 33.0 % Normal 20.5-60.[address] [facility] Comment on above: Performed By: #### U RTPCR #### [facility] [address] [place] [address] Dr. Dwight Waters MANUAL DIFF REQ NO Normal [facility] Comment on above: Performed By: #### U RTPCR #### [facility] [address] [place] [address] Dr. Dwight Waters MCH (RBC) [Entitic mass] 27.6 pg Normal 25.9-34.[address] [facility] Comment on above: Performed By: #### U RTPCR #### [facility] [address] [place] [address] Dr. Dwight Waters MCHC (RBC) [Mass/Vol] 32.3 g/dL Normal 29.9-35.[address] [facility] Comment on above: Performed By: #### U RTPCR #### [facility] [address] [place] [address] Dr. Dwight Waters MCV (RBC) [Entitic vol] 85.5 fL Normal 80.0-94.[address] [facility] Comment on above: Performed By: #### U RTPCR #### [facility] [address] [place] [address] Dr. Dwight Waters MONO # 0.5 103/ul Normal 0.3-0.[address] [facility] Comment on above: Performed By: #### U RTPCR #### [facility] [address] [place] [address] Dr. Dwight Waters Monocytes/100 WBC (Bld) 8.8 % Normal 1.7-12.[address] [facility] Comment on above: Performed By: #### U RTPCR #### [facility] [address] [address] [address] Dwight Waters NEUT # 3.1 103/ul Normal 1.4-6.[address] [facility] Comment on above: Performed By: #### U RTPCR #### [facility] [address] [place] [address] Dr. Dwight Waters Neutrophils/100 WBC (Bld) 53.4 % Normal 43.0-75.[address] [facility] Comment on above: Performed By: #### U RTPCR #### [facility] [address] [place] [address] Dr. Dwight Waters Platelet mean volume (Bld) [Entitic vol] 9.2 fL Critically low 9.5-13.[address] [facility] Comment on above: Performed By: #### U RTPCR #### [facility] [address] [place] [address] Dr. Dwight Waters PLT 255 103/ul Normal 150-450 [facility] Comment on above: Performed By: #### U RTPCR #### [facility] [address] [place] [address] Dr. Dwight Waters RBC 5.65 106/ul Normal 4.70-6.10 [facility] Comment on above: Performed By: #### U RTPCR #### [facility] [address] [place] [address] Dr. Dwight Waters WBC 5.7 103/ul Normal 4.0-11.0 [facility] Comment on above: Performed By: #### U RTPCR #### [facility] [address] [place] [address] Dr. Dwight Waters GGTon 11-04-2022 Gamma glutamyl transferase [Catalytic activity/Vol] 22 U/L Normal 15-[address] [facility] Comment on above: Performed By: #### U RTPCR #### [facility] [address] [place] [address] Dr. Dwight Waters MAGNESIUMon 11-04-2022 Magnesium [Mass/Vol] 1.8 mg/dL Normal 1.8-2.[address] [facility] Comment on above: Performed By: #### U RTPCR #### [facility] [address] [place] [address] Dr. Dwgiht Waters RENAL FUNCTION PANELon 11-04 Albumin [Mass/Vol] 3.8 g/dL Normal 3.4-5.[address] [facility] Comment on above: Performed By: #### U RTPCR #### [facility] [address] [place] [address] Dr. Dwight Waters Calcium [Mass/Vol] 9.3 mg/dL Normal 8.5-10.1 [facility] Comment on above: Performed By: #### U RTPCR #### [facility] [address] [place] [address] Dr. Dwight Waters Chloride [Moles/Vol] 107 mmol/L Normal 98-[address] [facility] Comment on above: Performed By: #### U RTPCR #### [facility] [address] [place] [address] Dr. Dwight Waters CO2 [Moles/Vol] 29.2 mmol/L Normal 21.0-32.[address] [facility] Comment on above: Performed By: #### U RTPCR #### [facility] [address] [place] [address] Dr. Dwight Waters Creatinine [Mass/Vol] 1.07 mg/dL Normal 0.70-1.30 [facility] Comment on above: Performed By: #### U RTPCR #### [facility] [address] [place] [address] Dr. Dwight Waters EGFR-AF COLOMBIAN >60 Normal >=60 [facility] Comment on above: Performed By: #### U RTPCR #### [facility] [address] [place] [address] Dr. Dwight Waters EGFR-NON AF COLOMBIAN >60 Normal >=[address] [facility] Comment on above: Performed By: #### U RTPCR #### [facility] [address] [place] [address] Dr. Dwight Waters Glucose [Mass/Vol] 106 mg/dL Normal 74-106 [facility] Comment on above: Performed By: #### U RTPCR #### [facility] [address] [place] [address] Dr. Dwight Waters Phosphate [Mass/Vol] 2.8 mg/dL Normal 2.6-4.[address] [facility] Comment on above: Performed By: #### U RTPCR #### [facility] [address] [place] [address] Dr. Dwight Waters Potassium [Moles/Vol] 4.1 mmol/L Normal 3.5-5.[address] [facility] Comment on above: Performed By: #### U RTPCR #### [facility] [address] [place] [address] Dr. Dwight Waters Sodium [Moles/Vol] 143 mmol/L Normal 136-[address] [facility] Comment on above: Performed By: #### U RTPCR #### [facility] [address] [place] [address] Dr. Dwight Waters Urea nitrogen [Mass/Vol] 12.0 mg/dL Normal 7.0-18.[address] [facility] Comment on above: Performed By: #### U RTPCR #### [facility] [address] [place] [address] Dr. Dwight Albert 11-04-2022 AST [Catalytic activity/Vol] 19 U/L Normal 15-[address] [facility] Comment on above: Performed By: #### U RTPCR #### [facility] [address] [place] [address] [facility] ALT [Catalytic activity/Vol] 28 U/L Normal 16-63 [facility] Comment on above: Performed By: #### U RTPCR #### [facility] [address] [place] [address] Dr. Dwight Waters URINE T PROTEIN CREAT RATIOo n 11-04-2022 Protein (U) [Mass/Vol] 10.7 mg/dL Normal <=12.[address] [facility] Comment on above: Performed By: #### U RTPCR #### [facility] [address] [place] [address] Dr. Dwight Waters UR PROT CREAT RAT 0.[address] [facility] Comment on above: Performed By: #### U RTPCR #### [facility] [address] [place] [address] Dr. Dwight Waters URINE CREAT 84.50 mg/dL Normal 20.00-300.[address] [facility] Comment on above: Performed By: #### U RTPCR #### [facility] [address] [place] [address] Dr. Dwight Waters FK506 (TACROLIMUS) WHOLE BLO ODon 09-18-2022 Tacrolimus (FK506), Blood 4.6 ng/mL Normal 2.0-20.0 [facility] Comment on above: Result Comment: Trou gh (immediately following transplant) 15.0 . Trough (steady state, 2 weeks or more after transplant): 3.0 - 8.0 . Performed by LC-MS/MS technology. Performed By: #### U RTPCR #### [facility] [address] [place] [address] Dr. Dwight Waters BK VIRUS PCR QUANTon 022 BKV DNA QUANT PCR PLASMA Negative Normal Negative [facility] Comment on above: Result Comment: No B K DNA detected. . The linear range of the assay is 22 - 100,000,000 IU/mL. Performed By: #### U RTPCR #### [facility] [address] [place] [address] Dr. Dwight Waters Log10 BKV DNA Plasma Normal [facility] Comment on above: Performed By: #### U RTPCR #### [facility] [address] [place] [address] Dr. Dwight Waters ALKALINE PHOSPHAon ALP [Catalytic activity/Vol] 92 U/L Normal 46-116 [facility] Comment on above: Performed By: #### U RTPCR #### [facility] [address] [place] [address] Dr. Dwight Waters BILIRUBIN CONJUGATED (DIRECT )on 09-15-2022 BILI, CONJUGATED 0.3 mg/dL Critically high 0.0-0.[address] [facility] Comment on above: Performed By: #### U RTPCR #### [facility] [address] [place] [address] Dr. Dwight Waters BILIRUBIN TOTALon 09-15-2022 Bilirubin [Mass/Vol] 1.1 mg/dL Critically high 0.2-1.[address] [facility] Comment on above: Performed By: #### U RTPCR #### [facility] [address] [place] [address] Dr. Dwight Waters CBC AUTO DIFFon 09-15-2022 BASO # 0.1 103/ul Normal 0.0-0.[address] [facility] Comment on above: Performed By: #### C BC #### [facility] [address] [place] [address] Dr. Dwight Waters Basophils/100 WBC (Bld) 0.8 % Normal 0.2-2.[address] [facility] Comment on above: Performed By: #### C BC #### [facility] [address] [place] [address] Dr. Dwight Waters EO # 0.2 103/ul Normal 0.0-0.[address] [facility] Comment on above: Performed By: #### C BC #### [facility] [address] [place] [address] Dr. Dwight Waters Eosinophils/100 WBC (Bld) 3.5 % Normal 0.9-7.[address] [facility] Comment on above: Performed By: #### C BC #### [facility] [address] [place] [address] Dr. Dwight Waters Erythrocyte distribution width (RBC) [Ratio] 13.0 % Normal 11.0-15.[address] [facility] Comment on above: Performed By: #### C BC #### [facility] [address] [place] [address] Dr. Dwight Waters Hematocrit (Bld) [Volume fraction] 50.0 % Normal 42.0-54.[address] [facility] Comment on above: Performed By: #### C BC #### [facility] [address] [place] [address] Dr. Dwight Waters Hemoglobin (Bld) [Mass/Vol] 16.0 g/dL Normal 14.0-18.[address] [facility] Comment on above: Performed By: #### C BC #### [facility] [address] [place] [address] Dr. Dwight Waters IG # 0.02 10e3/ul Normal 0.00-0.[address] [facility] Comment on above: Performed By: #### C BC #### [facility] [address] [place] [address] Dr. Dwight Waters IG % 0.3 % Normal 0.0-0.[address] [facility] Comment on above: Performed By: #### C BC #### [facility] [address] [place] [address] Dr. Dwight Waters LYMPH # 1.8 103/ul Normal 1.2-3.[address] [facility] Comment on above: Performed By: #### C BC #### [facility] [address] [place] [address] Dr. Dwight Waters Lymphocytes/100 WBC (Bld) 26.5 % Normal 20.5-60.[address] [facility] Comment on above: Performed By: #### C BC #### [facility] [address] [place] [address] Dr. Dwight Waters MANUAL DIFF REQ NO Normal [facility] Comment on above: Performed By: #### C BC #### [facility] [address] [place] [address] Dr. Dwight Waters MCH (RBC) [Entitic mass] 28.1 pg Normal 25.9-34.[address] [facility] Comment on above: Performed By: #### C BC #### [facility] [address] [place] [address] Dr. Dwight Waters MCHC (RBC) [Mass/Vol] 32.0 g/dL Normal 29.9-35.2 [facility] Comment on above: Performed By: #### C BC #### [facility] [address] [place] [address] Dr. Dwight Waters MCV (RBC) [Entitic vol] 87.9 fL Normal 80.0-94.[address] [facility] Comment on above: Performed By: #### C BC #### [facility] [address] [address] [address] Dwight Waters MONO # 0.5 103/ul Normal 0.3-0.8 [facility] Comment on above: Performed By: #### C BC #### [facility] [address] [address] [address] Dwight Waters Monocytes/100 WBC (Bld) 8.1 % Normal 1.7-12.[address] [facility] Comment on above: Performed By: #### C BC #### [facility] [address] [place] [address] Dr. Dwight Waters NEUT # 4.0 103/ul Normal 1.4-6.5 [facility] Comment on above: Performed By: #### C BC #### [facility] [address] [place] [address] Dr. Dwight Waters Neutrophils/100 WBC (Bld) 60.8 % Normal 43.0-75.[address] [facility] Comment on above: Performed By: #### C BC #### [facility] [address] [place] [address] Dr. Dwight Waters Platelet mean volume (Bld) [Entitic vol] 9.4 fL Critically low 9.5-13.[address] [facility] Comment on above: Performed By: #### C BC #### [facility] [address] [place] [address] Dr. Dwight Waters PLT 265 103/ul Normal 150-450 [facility] Comment on above: Performed By: #### C BC #### [facility] [address] [place] [address] Dr. Dwight Waters RBC 5.69 106/ul Normal 4.70-6.10 [facility] Comment on above: Performed By: #### C BC #### [facility] [address] [place] [address] Dr. Dwight Waters WBC 6.6 103/ul Normal 4.0-11.0 [facility] Comment on above: Performed By: #### C BC #### [facility] [address] [place] [address] Dr. Dwight Waters GGTon 09-15-2022 Gamma glutamyl transferase [Catalytic activity/Vol] 23 U/L Normal 15-[address] [facility] Comment on above: Performed By: #### U RTPCR #### [facility] [address] [place] [address] Dr. Dwight Waters MAGNESIUMon 09-15-2022 Magnesium [Mass/Vol] 1.8 mg/dL Normal 1.8-2.[address] [facility] Comment on above: Performed By: #### U RTPCR #### [facility] [address] [place] [address] Dr. Dwight Waters RENAL FUNCTION PANELon 09-15 Albumin [Mass/Vol] 4.1 g/dL Normal 3.4-5.[address] [facility] Comment on above: Performed By: #### C BC #### [facility] [address] [place] [address] Dr. Dwight Waters Calcium [Mass/Vol] 9.3 mg/dL Normal 8.5-10.[address] [facility] Comment on above: Performed By: #### C BC #### [facility] [address] [place] [address] Dr. Dwight Waters Chloride [Moles/Vol] 107 mmol/L Normal 98-[address] [facility] Comment on above: Performed By: #### C BC #### [facility] [address] [place] [address] Dr. Dwight Waters CO2 [Moles/Vol] 25.6 mmol/L Normal 21.0-32.0 [facility] Comment on above: Performed By: #### C BC #### [facility] [address] [place] [address] Dr. Dwight Waters Creatinine [Mass/Vol] 1.01 mg/dL Normal 0.70-1.[address] [facility] Comment on above: Performed By: #### C BC #### [facility] [address] [place] [address] Dr. Dwight Waters EGFR-AF COLOMBIAN >60 Normal >=[address] [facility] Comment on above: Performed By: #### C BC #### [facility] [address] [address] [address] Dwight Waters EGFR-NON AF COLOMBIAN >60 Normal >=[address] [facility] Comment on above: Performed By: #### C BC #### [facility] [address] [address] [address] Dwight Waters Glucose [Mass/Vol] 119 mg/dL Critically high 74-106 [facility] Comment on above: Performed By: #### C BC #### [facility] [address] [address] [address] Dwight Waters Phosphate [Mass/Vol] 2.8 mg/dL Normal 2.6-4.[address] [facility] Comment on above: Performed By: #### C BC #### [facility] [address] [place] [address] Dr. Dwight Waters Potassium [Moles/Vol] 4.0 mmol/L Normal 3.5-5.[address] [facility] Comment on above: Performed By: #### C BC #### [facility] [address] [place] [address] Dr. Dwight Waters Sodium [Moles/Vol] 141 mmol/L Normal 136-[address] [facility] Comment on above: Performed By: #### C BC #### [facility] [address] [place] [address] Dr. Dwight Waters Urea nitrogen [Mass/Vol] 15.0 mg/dL Normal 7.0-18.[address] [facility] Comment on above: Performed By: #### C BC #### [facility] [address] [place] [address] Dr. Dwight Waters SGOTon 09-15-2022 AST [Catalytic activity/Vol] 18 U/L Normal 15-[address] [facility] Comment on above: Performed By: #### U RTPCR #### [facility] [address] [place] [address] Dr. Dwight Waters SGPTon 09-15-2022 ALT [Catalytic activity/Vol] 32 U/L Normal 16-[address] [facility] Comment on above: Performed By: #### C BC #### [facility] [address] [address] [address] Dwight Waters URINE T PROTEIN CREAT RATIOo n 09-15-2022 Protein (U) [Mass/Vol] 14.1 mg/dL Critically high <=12.[address] [facility] Comment on above: Performed By: #### U RTPCR #### [facility] [address] [address] [address] Dwight Waters UR PROT CREAT RAT 0.[address] [facility] Comment on above: Performed By: #### U RTPCR #### [facility] [address] [address] [address] Dwight Waters URINE CREAT 98.89 mg/dL Normal 20.00-300.[address] [facility] Comment on above: Performed By: #### U RTPCR #### [facility] [address] [address] [address] Dwight Waters US CAROTID ART BILon [...] MÓNICA JIMENEZ Date: 2022-08-28 13:20 Normal [facility] FK506 (TACROLIMUS) WHOLE BLO ODon 08-17-2022 Tacrolimus (FK506), Blood 9.9 ng/mL Normal 2.0-20.0 [facility] Comment on above: Result Comment: Trou gh (immediately following transplant) 15.0 . Trough (steady state, 2 weeks or more after transplant): 3.0 - 8.0 . Performed by LC-MS/MS technology. Performed By: #### F [id number] #### [facility] [address] [place] [address] Dr. Dwight Waters BK VIRUS PCR QUANTon 022 BKV DNA QUANT PCR PLASMA Negative Normal Negative [facility] Comment on above: Result Comment: No B K DNA detected. . The linear range of the assay is 22 - 100,000,000 IU/mL. Performed By: #### U RTPCR #### [facility] [address] [place] [address] Dr. Dwight Waters Log10 BKV DNA Plasma Normal [facility] Comment on above: Performed By: #### U RTPCR #### [facility] [address] [place] [address] Dr. Dwight Waters ALBUMINon 08-14-2022 Albumin [Mass/Vol] 4.2 g/dL Normal 3.4-5.[address] [facility] Comment on above: Performed By: #### F [id number] #### [facility] [address] [place] [address] Dr. Dwight Waters ALKALINE PHOSPHAon ALP [Catalytic activity/Vol] 92 U/L Normal 46-116 [facility] Comment on above: Performed By: #### C BC #### [facility] [address] [place] [address] Dr. Dwight Waters BILIRUBIN CONJUGATED (DIRECT )on 08-14-2022 BILI, CONJUGATED 0.3 mg/dL Critically high 0.0-0.[address] [facility] Comment on above: Performed By: #### F [id number] #### [facility] [address] [place] [address] Dr. Dwight Waters BILIRUBIN TOTALon 08-14-2022 Bilirubin [Mass/Vol] 1.5 mg/dL Critically high 0.2-1.[address] [facility] Comment on above: Performed By: #### F [id number] #### [facility] [address] [place] [address] Dr. Dwight Waters BUNon 08-14-2022 Urea nitrogen [Mass/Vol] 11.0 mg/dL Normal 7.0-18.[address] [facility] Comment on above: Performed By: #### C BC #### [facility] [address] [place] [address] Dr. Dwight Waters CALCIUMon 08-14-2022 Calcium [Mass/Vol] 9.4 mg/dL Normal 8.5-10.[address] [facility] Comment on above: Performed By: #### F [id number] #### [facility] [address] [place] [address] Dr. Dwight Waters CBC AUTO DIFFon 08-14-2022 BASO # 0.0 103/ul Normal 0.0-0.[address] [facility] Comment on above: Performed By: #### C MP #### [facility] [address] [place] [address] Dr. Dwight Waters Basophils/100 WBC (Bld) 0.5 % Normal 0.2-2.0 [facility] Comment on above: Performed By: #### C MP #### [facility] [address] [place] [address] Dr. Dwight Waters EO # 0.2 103/ul Normal 0.0-0.[address] [facility] Comment on above: Performed By: #### C MP #### [facility] [address] [place] [address] Dr. Dwight Waters Eosinophils/100 WBC (Bld) 2.6 % Normal 0.9-7.[address] [facility] Comment on above: Performed By: #### C MP #### [facility] [address] [place] [address] Dr. Dwight Waters Erythrocyte distribution width (RBC) [Ratio] 13.1 % Normal 11.0-15.[address] [facility] Comment on above: Performed By: #### C MP #### [facility] [address] [place] [address] Dr. Dwight Waters Hematocrit (Bld) [Volume fraction] 47.0 % Normal 42.0-54.0 [facility] Comment on above: Performed By: #### C MP #### [facility] [address] [place] [address] Dr. Dwight Waters Hemoglobin (Bld) [Mass/Vol] 15.3 g/dL Normal 14.0-18.0 [facility] Comment on above: Performed By: #### C MP #### [facility] [address] [place] [address] Dr. Dwight Waters IG # 0.01 10e3/ul Normal 0.00-0.[address] [facility] Comment on above: Performed By: #### C MP #### [facility] [address] [place] [address] Dr. Dwight Waters IG % 0.1 % Normal 0.0-0.[address] [facility] Comment on above: Performed By: #### C MP #### [facility] [address] [place] [address] Dr. Dwight Waters LYMPH # 2.3 103/ul Normal 1.2-3.[address] [facility] Comment on above: Performed By: #### C MP #### [facility] [address] [place] [address] Dr. Dwight Waters Lymphocytes/100 WBC (Bld) 29.8 % Normal 20.5-60.[address] [facility] Comment on above: Performed By: #### C MP #### [facility] [address] [place] [address] Dr. Dwight Waters MANUAL DIFF REQ NO Normal [facility] Comment on above: Performed By: #### C MP #### [facility] [address] [place] [address] Dr. Dwight Waters MCH (RBC) [Entitic mass] 28.2 pg Normal 25.9-34.[address] [facility] Comment on above: Performed By: #### C MP #### [facility] [address] [place] [address] Dr. Dwight Waters MCHC (RBC) [Mass/Vol] 32.6 g/dL Normal 29.9-35.2 [facility] Comment on above: Performed By: #### C MP #### [facility] [address] [place] [address] Dr. Dwight Waters MCV (RBC) [Entitic vol] 86.7 fL Normal 80.0-94.[address] [facility] Comment on above: Performed By: #### C MP #### [facility] [address] [place] [address] Dr. Dwight Waters MONO # 0.7 103/ul Normal 0.3-0.8 [facility] Comment on above: Performed By: #### C MP #### [facility] [address] [place] [address] Dr. Dwight Waters Monocytes/100 WBC (Bld) 8.5 % Normal 1.7-12.[address] [facility] Comment on above: Performed By: #### C MP #### [facility] [address] [place] [address] Dr. Dwight Waters NEUT # 4.5 103/ul Normal 1.4-6.[address] [facility] Comment on above: Performed By: #### C MP #### [facility] [address] [place] [address] Dr. Dwight Waters Neutrophils/100 WBC (Bld) 58.5 % Normal 43.0-75.[address] [facility] Comment on above: Performed By: #### C MP #### [facility] [address] [place] [address] Dr. Dwight Waters Platelet mean volume (Bld) [Entitic vol] 9.7 fL Normal 9.5-13.5 [facility] Comment on above: Performed By: #### C MP #### [facility] [address] [place] [address] Dr. Dwight Waters PLT 266 103/ul Normal 150-450 [facility] Comment on above: Performed By: #### C MP #### [facility] [address] [place] [address] Dr. Dwight Waters RBC 5.42 106/ul Normal 4.70-6.10 [facility] Comment on above: Performed By: #### C MP #### [facility] [address] [place] [address] Dr. Dwight Waters WBC 7.6 103/ul Normal 4.0-11.0 [facility] Comment on above: Performed By: #### C MP #### [facility] [address] [place] [address] Dr. Dwight Waters CHLORIDEon 08-14-2022 Chloride [Moles/Vol] 104 mmol/L Normal 98-107 [facility] Comment on above: Performed By: #### C BC #### [facility] [address] [place] [address] Dr. Dwight Waters CO2on 08-14-2022 CO2 [Moles/Vol] 27.9 mmol/L Normal 21.0-32.[address] [facility] Comment on above: Performed By: #### C BC #### [facility] [address] [place] [address] Dr. Dwight Waters CREATININEon 08-14-2022 Creatinine [Mass/Vol] 1.08 mg/dL Normal 0.70-1.[address] [facility] Comment on above: Performed By: #### C BC #### [facility] [address] [place] [address] Dr. Dwight Waters EGFR-AF COLOMBIAN >60 Normal >=[address] [facility] Comment on above: Performed By: #### C BC #### [facility] [address] [place] [address] Dr. Dwight Waters EGFR-NON AF COLOMBIAN >60 Normal >=[address] [facility] Comment on above: Performed By: #### C BC #### [facility] [address] [place] [address] Dr. Dwight Waters GGTon 08-14-2022 Gamma glutamyl transferase [Catalytic activity/Vol] 24 U/L Normal 15-[address] [facility] Comment on above: Performed By: #### F [id number] #### [facility] [address] [place] [address] Dr. Dwight Waters GLUCOSE BLOODon 08-14-2022 Glucose [Mass/Vol] 111 mg/dL Critically high 74-106 [facility] Comment on above: Performed By: #### C BC #### [facility] [address] [place] [address] Dr. Dwight Waters MAGNESIUMon 08-14-2022 Magnesium [Mass/Vol] 1.4 mg/dL Critically low 1.8-2.[address] [facility] Comment on above: Performed By: #### C BC #### [facility] [address] [place] [address] Dr. Dwight Waters NAon 08-14-2022 Sodium [Moles/Vol] 140 mmol/L Normal 136-145 [facility] Comment on above: Performed By: #### F [id number] #### [facility] [address] [place] [address] Dr. Dwight Waters PHOSPHORUSon 08-14-2022 Phosphate [Mass/Vol] 3.1 mg/dL Normal 2.6-4.7 [facility] Comment on above: Performed By: #### C BC #### [facility] [address] [place] [address] Dr. Dwight Waters POTASSIUMon 08-14-2022 Potassium [Moles/Vol] 3.5 mmol/L Normal 3.5-5.1 [facility] Comment on above: Performed By: #### C BC #### [facility] [address] [place] [address] Dr. Dwight OLVERAOToamanda 08-14-2022 AST [Catalytic activity/Vol] 17 U/L Normal 15-37 [facility] Comment on above: Performed By: #### F [id number] #### [facility] [address] [place] [address] Dr. Dwight Waters SGPTon 08-14-2022 ALT [Catalytic activity/Vol] 22 U/L Normal 16-63 [facility] Comment on above: Performed By: #### F [id number] #### [facility] [address] [place] [address] Dr. Dwight Waters URINE T PROTEIN CREAT RATIOo n 08-14-2022 Protein (U) [Mass/Vol] 10.7 mg/dL Normal <=12.0 [facility] Comment on above: Performed By: #### F [id number] #### [facility] [address] [place] [address] Dr. Dwight Waters UR PROT CREAT RAT 0.[address] [facility] Comment on above: Performed By: #### F [id number] #### [facility] [address] [place] [address] Dr. Dwight Waters URINE CREAT 104.28 mg/dL Normal 20.00-300.00 [facility] Comment on above: Performed By: #### F [id number] #### [facility] [address] [address] [address] Dwight Waters NEPHROSTOMY TUBE REMOVALon 0 [...] [facility] Radiology Study observation (narrative) [facility] FK506 (TACROLIMUS) WHOLE BLO ODon 07-06-2022 Tacrolimus (FK506), Blood 9.5 ng/mL Normal 2.0-20.[address] [facility] Comment on above: Result Comment: Trou gh (immediately following transplant) 15.0 . Trough (steady state, 2 weeks or more after transplant): 3.0 - 8.0 . Performed by LC-MS/MS technology. Performed By: #### C MP #### [facility] [address] [address] [address] Dwight Waters ALBUMINon 07-03-2022 Albumin [Mass/Vol] 3.7 g/dL Normal 3.4-5.[address] [facility] Comment on above: Performed By: #### U RTPCR #### [facility] [address] [place] [address] Dr. Dwight Waters ALKALINE PHOSPHAon ALP [Catalytic activity/Vol] 76 U/L Normal 46-116 [facility] Comment on above: Performed By: #### U RTPCR #### [facility] [address] [place] [address] Dr. Dwight Waters BILIRUBIN CONJUGATED (DIRECT )on 07-03-2022 BILI, CONJUGATED 0.3 mg/dL Critically high 0.0-0.[address] [facility] Comment on above: Performed By: #### C BC #### [facility] [address] [place] [address] Dr. Dwight Waters BILIRUBIN TOTALon 07-03-2022 Bilirubin [Mass/Vol] 1.4 mg/dL Critically high 0.2-1.[address] [facility] Comment on above: Performed By: #### C BC #### [facility] [address] [place] [address] Dr. Dwight Waters BUNon 07-03-2022 Urea nitrogen [Mass/Vol] 15.0 mg/dL Normal 7.0-18.0 [facility] Comment on above: Performed By: #### C BC #### [facility] [address] [place] [address] Dr. Dwight Waters CALCIUMon 07-03-2022 Calcium [Mass/Vol] 9.4 mg/dL Normal 8.5-10.1 [facility] Comment on above: Performed By: #### U RTPCR #### [facility] [address] [place] [address] Dr. Dwight Waters CBC AUTO DIFFon 07-03-2022 BASO # 0.0 103/ul Normal 0.0-0.[address] [facility] Comment on above: Performed By: #### U RTPCR #### [facility] [address] [place] [address] Dr. Dwight Waters Basophils/100 WBC (Bld) 0.6 % Normal 0.2-2.[address] [facility] Comment on above: Performed By: #### U RTPCR #### [facility] [address] [place] [address] Dr. Dwight Waters EO # 0.2 103/ul Normal 0.0-0.[address] [facility] Comment on above: Performed By: #### U RTPCR #### [facility] [address] [place] [address] Dr. Dwight Waters Eosinophils/100 WBC (Bld) 3.5 % Normal 0.9-7.[address] [facility] Comment on above: Performed By: #### U RTPCR #### [facility] [address] [place] [address] Dr. Dwight Waters Erythrocyte distribution width (RBC) [Ratio] 12.9 % Normal 11.0-15.[address] [facility] Comment on above: Performed By: #### U RTPCR #### [facility] [address] [place] [address] Dr. Dwight Waters Hematocrit (Bld) [Volume fraction] 44.2 % Normal 42.0-54.[address] [facility] Comment on above: Performed By: #### U RTPCR #### [facility] [address] [place] [address] Dr. Dwight Waters Hemoglobin (Bld) [Mass/Vol] 14.6 g/dL Normal 14.0-18.[address] [facility] Comment on above: Performed By: #### U RTPCR #### [facility] [address] [place] [address] Dr. Dwight Waters IG # 0.02 10e3/ul Normal 0.00-0.[address] [facility] Comment on above: Performed By: #### U RTPCR #### [facility] [address] [place] [address] Dr. Dwight Waters IG % 0.3 % Normal 0.0-0.[address] [facility] Comment on above: Performed By: #### U RTPCR #### [facility] [address] [place] [address] Dr. Dwight Waters LYMPH # 2.0 103/ul Normal 1.2-3.[address] [facility] Comment on above: Performed By: #### U RTPCR #### [facility] [address] [place] [address] Dr. Dwight Waters Lymphocytes/100 WBC (Bld) 28.4 % Normal 20.5-60.[address] [facility] Comment on above: Performed By: #### U RTPCR #### [facility] [address] [place] [address] Dr. Dwight Waters MANUAL DIFF REQ NO Normal [facility] Comment on above: Performed By: #### U RTPCR #### [facility] [address] [place] [address] Dr. Dwight Waters MCH (RBC) [Entitic mass] 28.6 pg Normal 25.9-34.[address] [facility] Comment on above: Performed By: #### U RTPCR #### [facility] [address] [place] [address] Dr. Dwight Waters MCHC (RBC) [Mass/Vol] 33.0 g/dL Normal 29.9-35.[address] [facility] Comment on above: Performed By: #### U RTPCR #### [facility] [address] [place] [address] Dr. Dwight Waters MCV (RBC) [Entitic vol] 86.7 fL Normal 80.0-94.[address] [facility] Comment on above: Performed By: #### U RTPCR #### [facility] [address] [place] [address] Dr. Dwight Waters MONO # 0.6 103/ul Normal 0.3-0.8 [facility] Comment on above: Performed By: #### U RTPCR #### [facility] [address] [place] [address] Dr. Dwight Waters Monocytes/100 WBC (Bld) 9.1 % Normal 1.7-12.[address] [facility] Comment on above: Performed By: #### U RTPCR #### [facility] [address] [place] [address] Dr. Dwight Waters NEUT # 4.0 103/ul Normal 1.4-6.5 [facility] Comment on above: Performed By: #### U RTPCR #### [facility] [address] [place] [address] Dr. Dwight Waters Neutrophils/100 WBC (Bld) 58.1 % Normal 43.0-75.0 [facility] Comment on above: Performed By: #### U RTPCR #### [facility] [address] [place] [address] Dr. Dwight Waters Platelet mean volume (Bld) [Entitic vol] 9.5 fL Normal 9.5-13.5 [facility] Comment on above: Performed By: #### U RTPCR #### [facility] [address] [place] [address] Dr. Dwight Waters PLT 292 103/ul Normal 150-450 [facility] Comment on above: Performed By: #### U RTPCR #### [facility] [address] [place] [address] Dr. Dwight Waters RBC 5.10 106/ul Normal 4.70-6.10 [facility] Comment on above: Performed By: #### U RTPCR #### [facility] [address] [place] [address] Dr. Dwight Waters WBC 6.9 103/ul Normal 4.0-11.0 [facility] Comment on above: Performed By: #### U RTPCR #### [facility] [address] [place] [address] Dr. Dwight Waters CHLORIDEon 07-03-2022 Chloride [Moles/Vol] 108 mmol/L Critically high 98-107 [facility] Comment on above: Performed By: #### C BC #### [facility] [address] [place] [address] Dr. Dwight Waters CO2on 07-03-2022 CO2 [Moles/Vol] 25.2 mmol/L Normal 21.0-32.0 [facility] Comment on above: Performed By: #### C BC #### [facility] [address] [place] [address] Dr. Dwight Waters CREATININEon 07-03-2022 Creatinine [Mass/Vol] 1.03 mg/dL Normal 0.70-1.[address] [facility] Comment on above: Performed By: #### U RTPCR #### [facility] [address] [place] [address] Dr. Dwight Waters EGFR-AF COLOMBIAN >60 Normal >=[address] [facility] Comment on above: Performed By: #### U RTPCR #### [facility] [address] [place] [address] Dr. Dwight Waters EGFR-NON AF COLOMBIAN >60 Normal >=[address] [facility] Comment on above: Performed By: #### U RTPCR #### [facility] [address] [place] [address] Dr. Dwight Waters GGTon 07-03-2022 Gamma glutamyl transferase [Catalytic activity/Vol] 31 U/L Normal 15-[address] [facility] Comment on above: Performed By: #### U RTPCR #### [facility] [address] [place] [address] Dr. Dwight Waters GLUCOSE BLOODon 07-03-2022 Glucose [Mass/Vol] 119 mg/dL Critically high 74-106 T [facility] Comment on above: Performed By: #### U RTPCR #### [facility] [address] [place] [address] Dr. Dwight Waters MAGNESIUMon 07-03-2022 Magnesium [Mass/Vol] 1.4 mg/dL Critically low 1.8-2.[address] [facility] Comment on above: Performed By: #### C BC #### [facility] [address] [place] [address] Dr. Dwight Waters NAon 07-03-2022 Sodium [Moles/Vol] 142 mmol/L Normal 136-[address] [facility] Comment on above: Performed By: #### C MP #### [facility] [address] [place] [address] Dr. Dwight Waters PHOSPHORUSon 07-03-2022 Phosphate [Mass/Vol] 3.4 mg/dL Normal 2.6-4.[address] [facility] Comment on above: Performed By: #### C BC #### [facility] [address] [address] [address] Dwight Waters POTASSIUMon 07-03-2022 Potassium [Moles/Vol] 4.1 mmol/L Normal 3.5-5.[address] [facility] Comment on above: Performed By: #### C BC #### [facility] [address] [address] [address] Dwight Waters SGOTon 07-03-2022 AST [Catalytic activity/Vol] 14 U/L Critically low 15-[address] [facility] Comment on above: Performed By: #### C BC #### [facility] Laboratory [address] [address] [address] Dwight Waters SGPTon 07-03-2022 ALT [Catalytic activity/Vol] 25 U/L Normal 16-[address] [facility] Comment on above: Performed By: #### C BC #### [facility] [address] [place] [address] Dr. Dwight Waters US KIDNEYSon 07-03-2022 US KIDNEYS Ultrasound kidneys, bilateral HISTORY: Transplant of kidney , pain in the right lower quadrant COMPARISON: None. TECHNIQUE: Transabdominal ultrasound imaging of both kidneys was performed. FINDINGS: The [place] kidneys are diffusely echogenic and atrophic with cortical thinning. The right kidney measures 8.3 x 3.5 x 4.07 m and the left measures 9.9 x 3.8 x 3.6 cm. No hydronephrosis of the [place] kidneys. There is a renal transplant in [...] stone involving the renal transplant. 2. Atrophic [place] kidneys. 3. Normal bladder. Electronically authenticated by: ARCELIA PIZARRO Date: 2022-07-03 17:22 Normal [facility] CT Abdomen and Pelvis WO con traston 06-27-2022 IMPRESSION: 1. Both [place] kidneys are atrophic with improvement in right-sided [...] Adrenals: Adrenal glands are unremarkable. Kidneys: Both [place] kidneys are atrophic. Interval improvement in right [place] kidney hydronephrosis since May 15, 2022. Status [...] Adrenals: Adrenal glands are unremarkable. Kidneys: Both [place] kidneys are atrophic. Interval improvement in right [place] kidney hydronephrosis since May 15, 2022. Status [...] aggressive osseous lesions. IMPRESSION IMPRESSION: 1. Both [place] kidneys are atrophic with improvement in right-sided hydronephrosis since May 15, 2022. 2. 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 No hydronephrosis. No discrete perinephric collection. 3. Partially imaged postsurgical changes related to prior liver transplant. 4. The bladder is decompressed, limiting evaluation. [facility] Radiology Study observation (narrative) [facility] CT Abdomen and Pelvis WO con trastOrdered By: Gera Lu on 06-27-2022 [facility] Work Phone: CBC AUTO DIFFon 06-18-2022 BASO # 0.0 103/ul Normal 0.0-0.[address] [facility] Comment on above: Performed By: #### U RTPCR #### [facility] [address] [address] [address] Dwight Waters Basophils/100 WBC (Bld) 0.5 % Normal 0.2-2.[address] [facility] Comment on above: Performed By: #### U RTPCR #### [facility] [address] [place] [address] Dr. Dwight Waters EO # 0.2 103/ul Normal 0.0-0.[address] [facility] Comment on above: Performed By: #### U RTPCR #### [facility] [address] [address] [address] Dwight Waters Eosinophils/100 WBC (Bld) 2.3 % Normal 0.9-7.[address] [facility] Comment on above: Performed By: #### U RTPCR #### [facility] [address] [place] [address] Dr. Dwight Waters Erythrocyte distribution width (RBC) [Ratio] 12.9 % Normal 11.0-15.[address] [facility] Comment on above: Performed By: #### U RTPCR #### [facility] [address] [place] [address] Dr. Diwght Waters Hematocrit (Bld) [Volume fraction] 41.2 % Critically low 42.0-54.[address] [facility] Comment on above: Performed By: #### U RTPCR #### [facility] [address] [place] [address] Dr. Dwight Waters Hemoglobin (Bld) [Mass/Vol] 13.3 g/dL Critically low 14.0-18.[address] [facility] Comment on above: Performed By: #### U RTPCR #### [facility] [address] [place] [address] Dr. Dwight Waters IG # 0.04 10e3/ul Critically high 0.00-0.[address] [facility] Comment on above: Performed By: #### U RTPCR #### [facility] [address] [place] [address] Dr. Dwight Waters IG % 0.5 % Normal 0.0-0.[address] [facility] Comment on above: Performed By: #### U RTPCR #### [facility] [address] [place] [address] Dr. Dwight Waters LYMPH # 2.0 103/ul Normal 1.2-3.[address] [facility] Comment on above: Performed By: #### U RTPCR #### [facility] [address] [place] [address] Dr. Dwight Waters Lymphocytes/100 WBC (Bld) 22.9 % Normal 20.5-60.[address] [facility] Comment on above: Performed By: #### U RTPCR #### [facility] [address] [place] [address] Dr. Dwight Waters MANUAL DIFF REQ NO Normal [facility] Comment on above: Performed By: #### U RTPCR #### [facility] [address] [place] [address] Dr. Dwight Waters MCH (RBC) [Entitic mass] 28.7 pg Normal 25.9-34.[address] [facility] Comment on above: Performed By: #### U RTPCR #### [facility] [address] [place] [address] Dr. Dwight Waters MCHC (RBC) [Mass/Vol] 32.3 g/dL Normal 29.9-35.2 [facility] Comment on above: Performed By: #### U RTPCR #### [facility] [address] [place] [address] Dr. Dwight Waters MCV (RBC) [Entitic vol] 88.8 fL Normal 80.0-94.[address] [facility] Comment on above: Performed By: #### U RTPCR #### [facility] [address] [place] [address] Dr. Dwight Waters MONO # 0.8 103/ul Normal 0.3-0.[address] [facility] Comment on above: Performed By: #### U RTPCR #### [facility] [address] [place] [address] Dr. Dwight Waters Monocytes/100 WBC (Bld) 9.7 % Normal 1.7-12.0 [facility] Comment on above: Performed By: #### U RTPCR #### [facility] [address] [place] [address] Dr. Dwight Waters NEUT # 5.6 103/ul Normal 1.4-6.[address] [facility] Comment on above: Performed By: #### U RTPCR #### [facility] [address] [place] [address] Dr. Dwight Waters Neutrophils/100 WBC (Bld) 64.1 % Normal 43.0-75.[address] [facility] Comment on above: Performed By: #### U RTPCR #### [facility] [address] [place] [address] Dr. Dwight Waters Platelet mean volume (Bld) [Entitic vol] 10.0 fL Normal 9.5-13.5 [facility] Comment on above: Performed By: #### U RTPCR #### [facility] [address] [place] [address] Dr. Dwight Waters PLT 270 103/ul Normal 150-450 [facility] Comment on above: Performed By: #### U RTPCR #### [facility] [address] [place] [address] Dr. Dwight Waters RBC 4.64 106/ul Critically low 4.70-6.10 [facility] Comment on above: Performed By: #### U RTPCR #### [facility] [address] [place] [address] Dr. Dwight Waters WBC 8.7 103/ul Normal 4.0-11.0 [facility] Comment on above: Performed By: #### U RTPCR #### [facility] [address] [place] [address] Dr. Dwight Waters CULTURE URINEon 06-18-2022 CULTURE URINE Culture Observations : NO GROWTH. Normal [facility] Comment on above: Performed By: #### U RTPCR #### [facility] [address] [place] [address] Dr. Dwight Waters [facility] SARS-CoV-2 (COVID-19) RNA ESTELITA+probe Ql (Unsp spec) Not detected Normal NOT DETECTED [facility] Comment on above: Result Comment: [...] for this test is supported by the Personnel Director of Health and Human Service's declaration that [...] used). Performed By: #### C BC #### [facility] [address] [place] [address] Dr. Dwight Waters ER URINE PROFILEon Bilirubin Ql (U) Negative Normal NEGATIVE [facility] Comment on above: Performed By: #### U RTPCR #### [facility] [address] [place] [address] Dr. Dwight Waters Clarity (U) CLEAR Normal CLEAR [facility] Comment on above: Performed By: #### U RTPCR #### [facility] [address] [place] [address] Dr. Dwight Waters Color (U) YELLOW Normal YELLOW [facility] Comment on above: Performed By: #### U RTPCR #### [facility] [address] [place] [address] Dr. Dwight SHARMA A micrscopic examina tion will be performed if indicated. Normal [facility] Comment on above: Performed By: #### U RTPCR #### [facility] [address] [place] [address] Dr. Dwight Waters Glucose Ql (U) Negative Normal NEGATIVE [facility] Comment on above: Performed By: #### U RTPCR #### [facility] [address] [place] [address] Dr. Dwight Waters Hemoglobin Ql (U) LARGE Abnormal NEGATIVE [facility] Comment on above: Performed By: #### U RTPCR #### [facility] [address] [place] [address] Dr. Dwight Waters Ketones Ql (U) Negative Normal NEGATIVE [facility] Comment on above: Performed By: #### U RTPCR #### [facility] [address] [place] [address] Dr. Dwight Waters LEUKOCYTES TRACE Abnormal NEGATIVE [facility] Comment on above: Performed By: #### U RTPCR #### [facility] [address] [place] [address] Dr. Dwight Waters Nitrite Ql (U) Negative Normal NEGATIVE [facility] Comment on above: Performed By: #### U RTPCR #### [facility] [address] [place] [address] Dr. wDight Waters pH (U) 6.0 [pH] Normal 5-9 [facility] Comment on above: Performed By: #### U RTPCR #### [facility] [address] [place] [address] Dr. Dwight Waters Protein (U) [Mass/Vol] 30 mg/dL Abnormal NEGATIVE/ TRACE [facility] Comment on above: Performed By: #### U RTPCR #### [facility] [address] [place] [address] Dr. Dwight Waters SPEC GRAVITY >=1.030 Abnormal 1.005-<=1.02 5 [facility] Comment on above: Performed By: #### U RTPCR #### [facility] [address] [place] [address] Dr. Dwight Waters UR MICRO IND INDICATED Normal [facility] Comment on above: Performed By: #### U RTPCR #### [facility] [address] [place] [address] Dr. Dwight Waters Urobilinogen Qn (U) 0.2 {Alyssa'U}/dL Normal 0.2 - 1. [address] [facility] Comment on above: Performed By: #### U RTPCR #### [facility] [address] [place] [address] Dr. Dwight Waters PROF 14(COMP METB)on 022 Albumin [Mass/Vol] 3.7 g/dL Normal 3.4-5.0 [facility] Comment on above: Performed By: #### C MP #### [facility] [address] [place] [address] Dr. Dwight Waters Albumin/Globulin [Mass ratio] 0.9 {ratio} Normal [facility] Comment on above: Performed By: #### C MP #### [facility] [address] [place] [address] Dr. Dwight Waters ALP [Catalytic activity/Vol] 80 U/L Normal 46-[address] [facility] Comment on above: Performed By: #### C MP #### [facility] [address] [place] [address] Dr. Dwight Waters ALT [Catalytic activity/Vol] 24 U/L Normal 16-63 [facility] Comment on above: Performed By: #### C MP #### [facility] [address] [place] [address] Dr. Dwight Waters Anion gap [Moles/Vol] 12.9 mmol/L Normal [facility] Comment on above: Performed By: #### C MP #### [facility] [address] [place] [address] Dr. Dwight Waters AST [Catalytic activity/Vol] 17 U/L Normal 15-[address] [facility] Comment on above: Performed By: #### C MP #### [facility] [address] [place] [address] Dr. Dwight Waters Bilirubin [Mass/Vol] 0.8 mg/dL Normal 0.2-1.[address] [facility] Comment on above: Performed By: #### C MP #### [facility] [address] [place] [address] Dr. Dwight Waters Calcium [Mass/Vol] 9.4 mg/dL Normal 8.5-10.[address] [facility] Comment on above: Performed By: #### C MP #### [facility] [address] [place] [address] Dr. Dwight Waters Chloride [Moles/Vol] 106 mmol/L Normal 98-[address] [facility] Comment on above: Performed By: #### C MP #### [facility] [address] [place] [address] Dr. Dwight Waters CO2 [Moles/Vol] 25.3 mmol/L Normal 21.0-32.[address] [facility] Comment on above: Performed By: #### C MP #### [facility] [address] [place] [address] Dr. Dwight Waters Creatinine [Mass/Vol] 1.29 mg/dL Normal 0.70-1.[address] [facility] Comment on above: Performed By: #### C MP #### [facility] [address] [place] [address] Dr. Dwight Waters EGFR-AF COLOMBIAN >60 Normal >=[address] [facility] Comment on above: Performed By: #### C MP #### [facility] [address] [place] [address] Dr. Dwight Waters EGFR-NON AF COLOMBIAN 59 mL/min/1.73m2 Critically low >=60 [facility] Comment on above: Performed By: #### C MP #### [facility] [address] [place] [address] Dr. Dwight Waters Globulin (S) [Mass/Vol] 4.2 g/dL Normal [facility] Comment on above: Performed By: #### C MP #### [facility] [address] [place] [address] Dr. Dwight Waters Glucose [Mass/Vol] 106 mg/dL Normal 74-106 [facility] Comment on above: Performed By: #### C MP #### [facility] [address] [place] [address] Dr. Dwight Waters Potassium [Moles/Vol] 4.2 mmol/L Normal 3.5-5.1 [facility] Comment on above: Performed By: #### C MP #### [facility] [address] [place] [address] Dr. Dwight Waters Protein [Mass/Vol] 7.9 g/dL Normal 6.4-8.2 [facility] Comment on above: Performed By: #### C MP #### [facility] [address] [place] [address] Dr. Dwight Waters Sodium [Moles/Vol] 140 mmol/L Normal 136-145 [facility] Comment on above: Performed By: #### C MP #### [facility] [address] [place] [address] Dr. Dwight Waters Urea nitrogen [Mass/Vol] 22.0 mg/dL Critically high 7.0-18.[address] [facility] Comment on above: Performed By: #### C MP #### [facility] [address] [place] [address] Dr. Dwight Waters Urea nitrogen/Creatinine [Mass ratio] 17.1 mg/mg Normal [facility] Comment on above: Performed By: #### C MP #### [facility] [address] [place] [address] Dr. Dwight Waters URINE MICROSCOPIC ONLYon BACTERIA TRACE Abnormal NONE SEEN [facility] Comment on above: Performed By: #### U RTPCR #### [facility] [address] [place] [address] Dr. Dwight Waters Bacteria identified Cx Nom (U) INDICATED Normal [facility] Comment on above: Performed By: #### U RTPCR #### [facility] [address] [place] [address] Dr. Dwight Waters CAST NONE SEEN Normal NONE SEEN [facility] Comment on above: Performed By: #### U RTPCR #### [facility] [address] [place] [address] Dr. Dwight Waters Crystals LM Nom (Urine sed) NONE SEEN Normal NONE SEEN [facility] Comment on above: Performed By: #### U RTPCR #### [facility] [address] [place] [address] Dr. Dwight Waters Epithelial cells LM Ql (Urine sed) NONE SEEN Normal NONE SEEN /RARE [facility] Comment on above: Performed By: #### U RTPCR #### [facility] [address] [place] [address] Dr. Dwight Waters MUCOUS NONE SEEN Normal NONE SEEN [facility] Comment on above: Performed By: #### U RTPCR #### [facility] [address] [place] [address] Dr. Dwight Waters RBC 5-10 Abnormal 0-2 [facility] Comment on above: Performed By: #### U RTPCR #### [facility] [address] [place] [address] Dr. Dwight Waters WBC 10-20 Abnormal NONE SEEN [facility] Comment on above: Performed By: #### U RTPCR #### [facility] [address] [place] [address] Dr. Dwight Waters ALLOSCREEN RECIPIENT (POST T X PRA)on 06-13-2022 AB SPECIFICITY CLASS COMMENT Antibody Specificity testing performed by [employer]. cPRA calculation based on identification of HLA antibody specificities at MFI >2000 and/or presence of CREG antibodies. [facility] Comment on above: Some of the reagents used for testing in the Clinical Histocompatibility Laboratory have yet to be approved by the FDA. Our certification by CLIA to perform high complexity tests allows us to use these reagents in the context of a stringent QC program, and obviates the need for FDA approval.Testing performed by the [facility] Clinical Histocompatibility Laboratory. [facility] number: [id number]. CLIA number: [id number], Director: Carlito Merchant, PhD, D([facility]). ANTIBODY SPECIFICITY INTERPRETATION Detected [facility] CLASS I SPECIFICITIES Not detected [facility] CLASS II SPECIFICITIES Not detected [facility] HLA Ab (S) 0 % 0 [facility] EXTRA MICROon 06-13-2022 [facility] URINE CULTUREOrdered By: Jah Upton on 06-13-2022 Bacteria identified Cx Nom (Unsp spec) Growth [facility] Bacteria identified Cx Nom (Unsp spec) 10,000-50,000 CFU/mL Mixed skin shimon [facility] Comment on above: Multiple bacterial m orphotypes present. Suggest appropriate recollection if clinically indicated. [facility] CBC,PLATELETSon 06-12-2022 Erythrocyte distribution width (RBC) [Ratio] 13.0 % 10.9 - 14.3 % [facility] Hematocrit (Bld) [Volume fraction] 43.2 % 39.6 - 48.8 % [facility] Hemoglobin (Bld) [Mass/Vol] 13.9 g/dL 13.4 - 16.8 g/dL [facility] Interpretation and review of laboratory results Normal [facility] MCH (RBC) [Entitic mass] 28.7 pg 26.1 - 33.3 pg [facility] MCHC (RBC) [Mass/Vol] 32.2 g/dL 31.9 - 36.5 g/dL [facility] MCV (RBC) [Entitic vol] 89.1 fL 79.0 - 94.5 fL [facility] Platelet mean volume (Bld) [Entitic vol] 10.5 fL 8.7 - 12.3 fL [facility] Platelets (Bld) [#/Vol] 269 10*3/uL 146 - 337 K/uL [facility] RBC (Bld) [#/Vol] 4.85 10*6/uL [facility] WBC (Bld) [#/Vol] 7.68 10*3/uL 3.73 - 10. 10 K/uL [facility] CHEM 7 (LYTES,BUN,CREA,GLUC) on 06-12-2022 Anion gap [Moles/Vol] 14 mmol/L 7 - 17 mmol/L [facility] Chloride [Moles/Vol] 106 mmol/L 98 - 10 8 mmol/L [facility] CO2 [Moles/Vol] 25 mmol/L 21 - 31 mmol/L [facility] Creatinine [Mass/Vol] 1.26 mg/dL 0.70 - 1.30 mg/dL [facility] GFR/1.73 sq M.predicted CKD-EPI (S/P/Bld) [Vol rate/Area] 69 >=60 mL/min/1.73m 2 [facility] Comment on above: Reported eGFR is bas ed on the CKD-EPI 2020 equation using creatinine, age, and sex. Glucose [Mass/Vol] 83 mg/dL 70 - 99 mg/dL [facility] Osmolality Calc [Osmolality] 295 [facility] Potassium [Moles/Vol] 3.8 mmol/L 3.5 - 5.0 mmol/L [facility] Sodium [Moles/Vol] 141 mmol/L 135 - 145 mmol/L [facility] Urea nitrogen [Mass/Vol] 18 mg/dL 7 - 25 mg/dL [facility] Urea nitrogen/Creatinine [Mass ratio] 14 mg/mg [facility] GGTon 06-12-2022 Gamma glutamyl transferase [Catalytic activity/Vol] 20 U/L 8 - 64 U/L [facility] HEMOGLOBIN [id number] By: Link Roche on 06-12-2022 Average glucose Estimated from glycated hemoglobin (Bld) [Mass/Vol] 126 mg/dL [facility] HbA1c (Bld) [Mass fraction] 6.0 % High 4.7 - 5.6 % [facility] Interpretation and review of laboratory results Abnormal [facility] HEPATIC FUNCTION PANELon Albumin [Mass/Vol] 4.3 g/dL 3.5 - 5.0 g/dL [facility] ALP [Catalytic activity/Vol] 78 U/L 32 - 126 U/L [facility] ALT [Catalytic activity/Vol] 12 U/L 10 - 52 U/L [facility] AST [Catalytic activity/Vol] 16 U/L 10 - 39 U/L [facility] Bilirubin [Mass/Vol] 1.0 mg/dL <1.5 [facility] Bilirubin.direct [Mass/Vol] 0.2 mg/dL <0.3 [facility] Protein [Mass/Vol] 7.5 g/dL 6.4 - 8.3 g/dL [facility] No Panel Informationon 06-12 Interpretation and review of laboratory results Normal [facility] PTH INTACTOrdered By: Marli Lizarraga on 06-12-2022 Interpretation and review of laboratory results Abnormal [facility] Parathyrin.intact [Mass/Vol] 79.7 pg/mL High 14.0 - 72.0 pg/mL [facility] URINALYSIS REFLEX TO CULTURE PERFORMABLEon 06-12-2022 Appearance (U) Clear Clear [facility] Bacteria LM Ql (Urine sed) ABSENT ABSENT [facility] Color (U) Yellow Yellow [facility] Epithelial cells.squamous LM Ql (Urine sed) 1/hpf = 1+ 1/hpf = 1+, 2-5/hpf = 2+, 0/hpf = 0+, ABSENT [facility] Glucose Test strip (U) [Mass/Vol] Negative Negative [facility] Interpretation and review of laboratory results Abnormal [facility] Ketones (U) [Mass/Vol] Trace Abnormal Negative [facility] Leukocyte esterase Test strip Ql (U) Small Abnormal Negative [facility] Nitrite Ql (U) Negative Negative [facility] pH (U) 5.5 [pH] 5.0 - 7.0 [facility] Protein (U) [Mass/Vol] 30 mg/dL Abnormal Negative [facility] RBC (U) [#/Vol] Trace Abnormal Negative [facility] RBC LM.HPF (Urine sed) [#/Area] 0-2 0 - 2 /HPF [facility] Specific gravity (U) [Rel density] 1.026 [facility] Urobilinogen (U) [Mass/Vol] 0.2 E.U./dL 0.2 E.U/dL, 1.0 E.U/dL [facility] WBC LM.HPF (Urine sed) [#/Area] 10-20 Abnormal 0 - 5 /HPF [facility] URINE PROTEIN/CREA RATIO, RA NDOMon 06-12-2022 Creatinine (24H U) [Mass/Vol] 231.68 mg/dL [facility] Protein Unsp time (U) [Mass/Vol] 49 mg/dL [facility] Protein/Creatinine (U) [Mass ratio] 0.211 mg/g [facility] FK506 (TACROLIMUS) WHOLE BLO ODon 06-09-2022 Tacrolimus (FK506), Blood 9.8 ng/mL Normal 2.0-20.[address] [facility] Comment on above: Result Comment: Trou gh (immediately following transplant) 15.0 . Trough (steady state, 2 weeks or more after transplant): 3.0 - 8.0 . Performed by LC-MS/MS technology. Performed By: #### U RTPCR #### [facility] [address] [place] [address] Dr. Dwight Waters ALBUMINon 06-06-2022 Albumin [Mass/Vol] 3.8 g/dL Normal 3.4-5.[address] [facility] Comment on above: Performed By: #### C MP #### [facility] [address] [address] [address] Dwight Waters ALKALINE PHOSPHAon ALP [Catalytic activity/Vol] 82 U/L Normal 46-[address] [facility] Comment on above: Performed By: #### C MP #### [facility] [address] [address] [address] Dwight Waters BILIRUBIN CONJUGATED (DIRECT )on 06-06-2022 BILI, CONJUGATED 0.2 mg/dL Normal 0.0-0.[address] [facility] Comment on above: Performed By: #### C BC #### [facility] [address] [place] [address] Dr. Dwight Waters BILIRUBIN TOTALon 06-06-2022 Bilirubin [Mass/Vol] 1.0 mg/dL Normal 0.2-1.[address] [facility] Comment on above: Performed By: #### C BC #### [facility] [address] [place] [address] Dr. Dwight Waters BUNon 06-06-2022 Urea nitrogen [Mass/Vol] 18.0 mg/dL Normal 7.0-18.0 [facility] Comment on above: Performed By: #### C BC #### [facility] [address] [place] [address] Dr. Dwight Waters CALCIUMon 06-06-2022 Calcium [Mass/Vol] 9.4 mg/dL Normal 8.5-10.1 [facility] Comment on above: Performed By: #### C MP #### [facility] [address] [place] [address] Dr. Dwight Waters CBC AUTO DIFFon 06-06-2022 BASO # 0.1 103/ul Normal 0.0-0.[address] [facility] Comment on above: Performed By: #### U RTPCR #### [facility] [address] [place] [address] Dr. Dwight Waters Basophils/100 WBC (Bld) 0.8 % Normal 0.2-2.[address] [facility] Comment on above: Performed By: #### U RTPCR #### [facility] [address] [place] [address] Dr. Dwight Waters EO # 0.3 103/ul Normal 0.0-0.7 [facility] Comment on above: Performed By: #### U RTPCR #### [facility] [address] [place] [address] Dr. Dwight Waters Eosinophils/100 WBC (Bld) 3.3 % Normal 0.9-7.0 [facility] Comment on above: Performed By: #### U RTPCR #### [facility] [address] [place] [address] Dr. Dwight Waters Erythrocyte distribution width (RBC) [Ratio] 12.4 % Normal 11.0-15.0 [facility] Comment on above: Performed By: #### U RTPCR #### [facility] [address] [place] [address] Dr. Dwight Waters Hematocrit (Bld) [Volume fraction] 45.1 % Normal 42.0-54.[address] [facility] Comment on above: Performed By: #### U RTPCR #### [facility] [address] [place] [address] Dr. Dwight Waters Hemoglobin (Bld) [Mass/Vol] 14.4 g/dL Normal 14.0-18.[address] [facility] Comment on above: Performed By: #### U RTPCR #### [facility] [address] [place] [address] Dr. Dwight Waetrs IG # 0.01 10e3/ul Normal 0.00-0.[address] [facility] Comment on above: Performed By: #### U RTPCR #### [facility] [address] [place] [address] Dr. Dwight Waters IG % 0.1 % Normal 0.0-0.[address] [facility] Comment on above: Performed By: #### U RTPCR #### [facility] [address] [place] [address] Dr. Dwight Waters LYMPH # 2.2 103/ul Normal 1.2-3.[address] [facility] Comment on above: Performed By: #### U RTPCR #### [facility] [address] [place] [address] Dr. Dwight Waters Lymphocytes/100 WBC (Bld) 30.0 % Normal 20.5-60.[address] [facility] Comment on above: Performed By: #### U RTPCR #### [facility] [address] [place] [address] Dr. Dwight Waters MANUAL DIFF REQ NO Normal [facility] Comment on above: Performed By: #### U RTPCR #### [facility] [address] [place] [address] Dr. Dwight Watres MCH (RBC) [Entitic mass] 28.2 pg Normal 25.9-34.[address] [facility] Comment on above: Performed By: #### U RTPCR #### [facility] [address] [address] [address] Dwight Waters MCHC (RBC) [Mass/Vol] 31.9 g/dL Normal 29.9-35.[address] [facility] Comment on above: Performed By: #### U RTPCR #### [facility] [address] [place] [address] Dr. Dwight Waters MCV (RBC) [Entitic vol] 88.3 fL Normal 80.0-94.0 [facility] Comment on above: Performed By: #### U RTPCR #### [facility] [address] [place] [address] Dr. Dwight Waters MONO # 0.6 103/ul Normal 0.3-0.[address] [facility] Comment on above: Performed By: #### U RTPCR #### [facility] [address] [place] [address] Dr. Dwight Waters Monocytes/100 WBC (Bld) 8.2 % Normal 1.7-12.[address] [facility] Comment on above: Performed By: #### U RTPCR #### [facility] [address] [place] [address] Dr. Dwight Waters NEUT # 4.3 103/ul Normal 1.4-6.[address] [facility] Comment on above: Performed By: #### U RTPCR #### [facility] [address] [place] [address] Dr. Dwight Waters Neutrophils/100 WBC (Bld) 57.6 % Normal 43.0-75.0 [facility] Comment on above: Performed By: #### U RTPCR #### [facility] [address] [place] [address] Dr. Dwight Waters Platelet mean volume (Bld) [Entitic vol] 9.7 fL Normal 9.5-13.5 [facility] Comment on above: Performed By: #### U RTPCR #### [facility] [address] [place] [address] Dr. Dwight Waters PLT 297 103/ul Normal 150-450 [facility] Comment on above: Performed By: #### U RTPCR #### [facility] [address] [place] [address] Dr. Dwight Waters RBC 5.11 106/ul Normal 4.70-6.10 [facility] Comment on above: Performed By: #### U RTPCR #### [facility] [address] [place] [address] Dr. Dwight Waters WBC 7.5 103/ul Normal 4.0-11.0 [facility] Comment on above: Performed By: #### U RTPCR #### [facility] [address] [place] [address] Dr. Dwight Waters CHLORIDEon 06-06-2022 Chloride [Moles/Vol] 107 mmol/L Normal 98-107 [facility] Comment on above: Performed By: #### C BC #### [facility] [address] [place] [address] Dr. Dwight Waters CO2on 06-06-2022 CO2 [Moles/Vol] 27.4 mmol/L Normal 21.0-32.[address] [facility] Comment on above: Performed By: #### C BC #### [facility] [address] [place] [address] Dr. Dwight Waters CREATININEon 06-06-2022 Creatinine [Mass/Vol] 1.20 mg/dL Normal 0.70-1.[address] [facility] Comment on above: Performed By: #### C BC #### [facility] [address] [place] [address] Dr. Dwight Waters EGFR-AF COLOMBIAN >60 Normal >=60 [facility] Comment on above: Performed By: #### C BC #### [facility] [address] [place] [address] Dr. Dwight Waters EGFR-NON AF COLOMBIAN >60 Normal >=60 [facility] Comment on above: Performed By: #### C BC #### [facility] [address] [place] [address] Dr. Dwight Waters GGTon 06-06-2022 Gamma glutamyl transferase [Catalytic activity/Vol] 29 U/L Normal 15-85 [facility] Comment on above: Performed By: #### C BC #### [facility] [address] [place] [address] Dr. Dwight Waters GLUCOSE BLOODon 06-06-2022 Glucose [Mass/Vol] 112 mg/dL Critically high 74-106 T [facility] Comment on above: Performed By: #### C BC #### [facility] [address] [place] [address] Dr. Dwight Waters MAGNESIUMon 06-06-2022 Magnesium [Mass/Vol] 1.3 mg/dL Critically low 1.8-2.[address] [facility] Comment on above: Performed By: #### C MP #### [facility] [address] [place] [address] Dr. Dwight Waters NAon 06-06-2022 Sodium [Moles/Vol] 141 mmol/L Normal 136-[address] [facility] Comment on above: Performed By: #### C MP #### [facility] [address] [place] [address] Dr. Dwight Waters PHOSPHORUSon 06-06-2022 Phosphate [Mass/Vol] 3.1 mg/dL Normal 2.6-4.[address] [facility] Comment on above: Performed By: #### C MP #### [facility] [address] [place] [address] Dr. Dwight Waters POTASSIUMon 06-06-2022 Potassium [Moles/Vol] 4.3 mmol/L Normal 3.5-5.[address] [facility] Comment on above: Performed By: #### C BC #### [facility] [address] [place] [address] Dr. Dwight Waters SGOTon 06-06-2022 AST [Catalytic activity/Vol] 16 U/L Normal 15-[address] [facility] Comment on above: Performed By: #### C BC #### [facility] [address] [place] [address] Dr. Dwight Waters SGPTon 06-06-2022 ALT [Catalytic activity/Vol] 50 U/L Normal 16-[address] [facility] Comment on above: Performed By: #### C BC #### [facility] [address] [place] [address] Dr. Dwight Waters Bacteria identified Cx Nom ( Bld)on 05-21-2022 Bacteria identified Cx Nom (Unsp spec) NO GROWTH DAY 5 OF 5 [facility] Results may be compr omised due to volume of BACT\ALERT bottle exceeding 10mLs . The optimal blood volume is 8-10 mls per aerobic/anaerobic blood culture bottle. [facility] CALCIUMon 05-20-2022 Calcium [Mass/Vol] 9.1 mg/dL 8.6 - 10. 5 mg/dL [facility] CBC,PLATELETSon 05-20-2022 Erythrocyte distribution width (RBC) [Ratio] 12.5 % 10.9 - 14.3 % [facility] Hematocrit (Bld) [Volume fraction] 37.1 % Low 39.6 - 48.8 % [facility] Hemoglobin (Bld) [Mass/Vol] 12.3 g/dL Low 13.4 - 16.8 g/dL [facility] Interpretation and review of laboratory results Abnormal [facility] MCH (RBC) [Entitic mass] 28.9 pg 26.1 - 33.3 pg [facility] MCHC (RBC) [Mass/Vol] 33.2 g/dL 31.9 - 36.5 g/dL [facility] MCV (RBC) [Entitic vol] 87.3 fL 79.0 - 94.5 fL [facility] Platelet mean volume (Bld) [Entitic vol] 9.9 fL 8.7 - 12.3 fL [facility] Platelets (Bld) [#/Vol] 234 10*3/uL 146 - 337 K/uL [facility] RBC (Bld) [#/Vol] 4.25 10*6/uL Low [facility] WBC (Bld) [#/Vol] 6.31 10*3/uL 3.73 - 10. 10 K/uL [facility] CHEM 7 (LYTES,BUN,CREA,GLUC) on 05-20-2022 Anion gap [Moles/Vol] 15 mmol/L 7 - 17 mmol/L [facility] Chloride [Moles/Vol] 111 mmol/L High 98 - 10 8 mmol/L [facility] CO2 [Moles/Vol] 22 mmol/L 21 - 31 mmol/L [facility] Creatinine [Mass/Vol] 1.10 mg/dL 0.70 - 1.30 mg/dL [facility] GFR/1.73 sq M.predicted CKD-EPI (S/P/Bld) [Vol rate/Area] 81 >=60 mL/min/1.73m 2 [facility] Comment on above: Reported eGFR is bas ed on the CKD-EPI 2020 equation using creatinine, age, and sex. Glucose [Mass/Vol] 92 mg/dL 70 - 99 mg/dL [facility] Interpretation and review of laboratory results Abnormal [facility] Osmolality Calc [Osmolality] 302 [facility] Potassium [Moles/Vol] 4.4 mmol/L 3.5 - 5.0 mmol/L [facility] Sodium [Moles/Vol] 144 mmol/L 135 - 145 mmol/L [facility] Urea nitrogen [Mass/Vol] 18 mg/dL 7 - 25 mg/dL [facility] Urea nitrogen/Creatinine [Mass ratio] 16 mg/mg [facility] MAGNESIUMon 05-20-2022 Interpretation and review of laboratory results Abnormal [facility] Magnesium [Mass/Vol] 1.5 mg/dL Low 1.6 - 2 .6 mg/dL [facility] No Panel Informationon 05-20 Interpretation and review of laboratory results Normal [facility] PHOSPHATE, INORGANICon 05-20 Phosphate [Mass/Vol] 3.3 mg/dL 2.2 - 4 .6 mg/dL [facility] RF Unspecified body region V iews during [...] projections of kidneys, ureters, and bladder. FINDINGS: [employer] images: [employer]er radiographs of the abdomen reveal a nonobstructive [...] Contrast refluxes up the ureter to the [place] right kidney that is grossly normal appearing. [...] projections of kidneys, ureters, and bladder. FINDINGS: [employer]er images: [employer]er radiographs of the abdomen reveal a nonobstructive [...] Contrast refluxes up the ureter to the [place] right kidney that is grossly normal appearing. [...] reviewed and approved this report. [facility] Radiology Study observation (narrative) [facility] RF Unspecified body region V iews during surgeryOrdered By: Lizz Campos on 05-20-2022 [facility] Work Phone: CALCIUMon 05-19-2022 Calcium [Mass/Vol] 9.2 mg/dL 8.6 - 10. 5 [facility] Calcium [Mass/Vol] 8.6 mg/dL 8.6 - 10. 5 mg/dL [facility] CBC,PLATELETSon 05-19-2022 Erythrocyte distribution width (RBC) [Ratio] 12.4 % 10.9 - 14.3 % [facility] Hematocrit (Bld) [Volume fraction] 38.0 % Low 39.6 - 48.8 % [facility] Hemoglobin (Bld) [Mass/Vol] 12.0 g/dL Low 13.4 - 16.8 g/dL [facility] Interpretation and review of laboratory results Abnormal [facility] MCH (RBC) [Entitic mass] 28.6 pg 26.1 - 33.3 pg [facility] MCHC (RBC) [Mass/Vol] 31.6 g/dL Low 31.9 - 36.5 g/dL [facility] MCV (RBC) [Entitic vol] 90.5 fL 79.0 - 94.5 fL [facility] Platelet mean volume (Bld) [Entitic vol] 9.7 fL 8.7 - 12.3 fL [facility] Platelets (Bld) [#/Vol] 199 10*3/uL 146 - 337 K/uL [facility] RBC (Bld) [#/Vol] 4.20 10*6/uL Low [facility] WBC (Bld) [#/Vol] 6.81 10*3/uL 3.73 - 10. 10 K/uL [facility] CHEM 7 (LYTES,BUN,CREA,GLUC) on 05-19-2022 Anion gap [Moles/Vol] 13 mmol/L 7 - 17 mmol/L [facility] Chloride [Moles/Vol] 105 mmol/L 98 - 10 8 mmol/L [facility] CO2 [Moles/Vol] 30 mmol/L 21 - 31 mmol/L [facility] Creatinine [Mass/Vol] 1.39 mg/dL High 0.70 - 1.30 mg/dL [facility] GFR/1.73 sq M.predicted CKD-EPI (S/P/Bld) [Vol rate/Area] 61 >=60 mL/min/1.73m 2 [facility] Comment on above: Reported eGFR is bas ed on the CKD-EPI 2020 equation using creatinine, age, and sex. Glucose [Mass/Vol] 121 mg/dL High 70 - 99 mg/dL [facility] Interpretation and review of laboratory results Abnormal [facility] Osmolality Calc [Osmolality] 303 [facility] Potassium [Moles/Vol] 3.8 mmol/L 3.5 - 5.0 mmol/L [facility] Sodium [Moles/Vol] 144 mmol/L 135 - 145 mmol/L [facility] Urea nitrogen [Mass/Vol] 18 mg/dL 7 - 25 mg/dL [facility] Urea nitrogen/Creatinine [Mass ratio] 13 mg[facility] Anion gap [Moles/Vol] 15 mmol/L 7 - 17 mmol/L [facility] Chloride [Moles/Vol] 106 mmol/L 98 - 10 8 mmol/L [facility] CO2 [Moles/Vol] 24 mmol/L 21 - 31 mmol/L [facility] Creatinine [Mass/Vol] 1.46 mg/dL High 0.70 - 1.30 mg/dL [facility] GFR/1.73 sq M.predicted CKD-EPI (S/P/Bld) [Vol rate/Area] 58 Low >=60 mL/min/1.73m 2 [facility] Comment on above: Reported eGFR is bas ed on the CKD-EPI 2020 equation using creatinine, age, and sex. Glucose [Mass/Vol] 103 mg/dL High 70 - 99 mg/dL [facility] Interpretation and review of laboratory results Abnormal [facility] Osmolality Calc [Osmolality] 298 [facility] Potassium [Moles/Vol] 3.9 mmol/L 3.5 - 5.0 mmol/L [facility] Sodium [Moles/Vol] 141 mmol/L 135 - 145 mmol/L [facility] Urea nitrogen [Mass/Vol] 21 mg/dL 7 - 25 mg/dL [facility] Urea nitrogen/Creatinine [Mass ratio] 14 mg/mg [facility] MAGNESIUMon 05-19-2022 Magnesium [Mass/Vol] 2.0 mg/dL 1.6 - 2 .6 mg/dL [facility] Magnesium [Mass/Vol] 1.7 mg/dL 1.6 - 2 .6 mg/dL [facility] No Panel Informationon 05-19 Interpretation and review of laboratory results Normal [facility] Interpretation and review of laboratory results Normal [facility] PHOSPHATE, INORGANICon 05-19 Phosphate [Mass/Vol] 3.0 mg/dL 2.2 - 4 .6 mg/dL [facility] Phosphate [Mass/Vol] 2.7 mg/dL 2.2 - 4 .6 mg/dL [facility] CALCIUMon 05-18-2022 Calcium [Mass/Vol] 9.1 mg/dL 8.6 - 10. 5 mg/dL [facility] CBC,PLATELETSon 05-18-2022 Erythrocyte distribution width (RBC) [Ratio] 12.5 % 10.9 - 14.3 % [facility] Hematocrit (Bld) [Volume fraction] 37.3 % Low 39.6 - 48.8 % [facility] Hemoglobin (Bld) [Mass/Vol] 11.9 g/dL Low 13.4 - 16.8 g/dL [facility] Interpretation and review of laboratory results Abnormal [facility] MCH (RBC) [Entitic mass] 28.9 pg 26.1 - 33.3 pg [facility] MCHC (RBC) [Mass/Vol] 31.9 g/dL 31.9 - 36.5 g/dL [facility] MCV (RBC) [Entitic vol] 90.5 fL 79.0 - 94.5 fL [facility] Platelet mean volume (Bld) [Entitic vol] 10.1 fL 8.7 - 12.3 fL [facility] Platelets (Bld) [#/Vol] 189 10*3/uL 146 - 337 K/uL [facility] RBC (Bld) [#/Vol] 4.12 10*6/uL Low [facility] WBC (Bld) [#/Vol] 10.19 10*3/uL High 3.73 - 10 .10 K/uL [facility] CHEM 7 (LYTES,BUN,CREA,GLUC) on 05-18-2022 Anion gap [Moles/Vol] 13 mmol/L 7 - 17 mmol/L [facility] Chloride [Moles/Vol] 102 mmol/L 98 - 10 8 mmol/L [facility] CO2 [Moles/Vol] 26 mmol/L 21 - 31 mmol/L [facility] Creatinine [Mass/Vol] 1.91 mg/dL High 0.70 - 1.30 mg/dL [facility] GFR/1.73 sq M.predicted CKD-EPI (S/P/Bld) [Vol rate/Area] 42 Low >=60 mL/min/1.73m 2 [facility] Comment on above: Reported eGFR is bas ed on the CKD-EPI 2020 equation using creatinine, age, and sex. Glucose [Mass/Vol] 158 mg/dL High 70 - 99 mg/dL [facility] Osmolality Calc [Osmolality] 297 [facility] Potassium [Moles/Vol] 4.0 mmol/L 3.5 - 5.0 mmol/L [facility] Sodium [Moles/Vol] 137 mmol/L 135 - 145 mmol/L [facility] Urea nitrogen [Mass/Vol] 30 mg/dL High 7 - 25 mg/dL [facility] Urea nitrogen/Creatinine [Mass ratio] 16 mg/mg [facility] CHEM 7 (LYTES,BUN,CREA,GLUC) Ordered By: Tamiko Thapa on 05-18-2022 Anion gap [Moles/Vol] 13 mmol/L 7 - 17 mmol/L [facility] Chloride [Moles/Vol] 104 mmol/L 98 - 10 8 mmol/L [facility] CO2 [Moles/Vol] 26 mmol/L 21 - 31 mmol/L [facility] Creatinine [Mass/Vol] 2.96 mg/dL High 0.70 - 1.30 mg/dL [facility] GFR/1.73 sq M.predicted CKD-EPI (S/P/Bld) [Vol rate/Area] 25 Low >=60 mL/min/1.73m 2 [facility] Comment on above: Reported eGFR is bas ed on the CKD-EPI 2020 equation using creatinine, age, and sex. Glucose [Mass/Vol] 136 mg/dL High 70 - 99 mg/dL [facility] Interpretation and review of laboratory results Abnormal [facility] Osmolality Calc [Osmolality] 304 [facility] Potassium [Moles/Vol] 4.2 mmol/L 3.5 - 5.0 mmol/L [facility] Sodium [Moles/Vol] 139 mmol/L 135 - 145 mmol/L [facility] Urea nitrogen [Mass/Vol] 41 mg/dL High 7 - 25 mg/dL [facility] Urea nitrogen/Creatinine [Mass ratio] 14 mg/mg [facility] MAGNESIUMon 05-18-2022 Magnesium [Mass/Vol] 2.2 mg/dL 1.6 - 2 .6 mg/dL [facility] Interpretation and review of laboratory results Normal [facility] Magnesium [Mass/Vol] 1.7 mg/dL 1.6 - 2 .6 mg/dL [facility] No Panel Informationon 05-18 Interpretation and review of laboratory results Abnormal [facility] Interpretation and review of laboratory results Normal [facility] PHOSPHATE, INORGANICon 05-18 Phosphate [Mass/Vol] 2.0 mg/dL Low 2.2 - 4 .6 mg/dL [facility] Interpretation and review of laboratory results Normal [facility] Phosphate [Mass/Vol] 2.8 mg/dL 2.2 - 4 .6 mg/dL [facility] PT,INR,PTTon 05-18-2022 aPTT Coag (PPP) [Time] 31.0 s [facility] INR Coag (Bld) [Relative time] 1.1 {INR} [facility] Interpretation and review of laboratory results Abnormal [facility] PT Coag (PPP) [Time] 14.4 s High [facility] URINE CULTUREOrdered By: Sylvia Campos on 05-18-2022 Bacteria identified Cx Nom (Unsp spec) No Growth [facility] CBC,PLATELETSon 05-17-2022 Erythrocyte distribution width (RBC) [Ratio] 12.8 % 10.9 - 14.3 % [facility] Hematocrit (Bld) [Volume fraction] 42.8 % 39.6 - 48.8 % [facility] Hemoglobin (Bld) [Mass/Vol] 13.3 g/dL Low 13.4 - 16.8 g/dL [facility] Interpretation and review of laboratory results Abnormal [facility] MCH (RBC) [Entitic mass] 28.9 pg 26.1 - 33.3 pg [facility] MCHC (RBC) [Mass/Vol] 31.1 g/dL Low 31.9 - 36.5 g/dL [facility] MCV (RBC) [Entitic vol] 92.8 fL 79.0 - 94.5 fL [facility] Platelet mean volume (Bld) [Entitic vol] 10.3 fL 8.7 - 12.3 fL [facility] Platelets (Bld) [#/Vol] 188 10*3/uL 146 - 337 K/uL [facility] RBC (Bld) [#/Vol] 4.61 10*6/uL [facility] WBC (Bld) [#/Vol] 16.61 10*3/uL High 3.73 - 10 .10 K/uL [facility] CHEM 7 (LYTES,BUN,CREA,GLUC) Ordered By: Kaylah Mc on 05-17-2022 Anion gap [Moles/Vol] 15 mmol/L 7 - 17 mmol/L [facility] Chloride [Moles/Vol] 103 mmol/L 98 - 10 8 mmol/L [facility] CO2 [Moles/Vol] 23 mmol/L 21 - 31 mmol/L [facility] Creatinine [Mass/Vol] 5.95 mg/dL High 0.70 - 1.30 mg/dL [facility] GFR/1.73 sq M.predicted CKD-EPI (S/P/Bld) [Vol rate/Area] 11 Low >=60 mL/min/1.73m 2 [facility] Comment on above: Reported eGFR is bas ed on the CKD-EPI 2020 equation using creatinine, age, and sex. Glucose [Mass/Vol] 165 mg/dL High 70 - 99 mg/dL [facility] Interpretation and review of laboratory results [facility] Osm[facility] Calc [Osmolality] 305 [facility] Potassium [Moles/Vol] 4.6 mmol/L 3.5 - 5.0 mmol/L [facility] Sodium [Moles/Vol] 136 mmol/L 135 - 145 mmol/L [facility] Urea nitrogen [Mass/Vol] 52 mg/dL High 7 - 25 mg/dL [facility] Urea nitrogen/Creatinine [Mass ratio] 9 [facility] (LYTES,BUN,CREA,GLUC) Ordered By: Kehinde Gutierrez on 05-17-2022 Anion gap [Moles/Vol] 24 mmol/L High 7 - 17 mmol/L [facility] Chloride [Moles/Vol] 100 mmol/L 98 - 10 8 mmol/L [facility] CO2 [Moles/Vol] 16 mmol/L Low 21 - 31 mmol/L [facility] Creatinine [Mass/Vol] 8.08 mg/dL High 0.70 - 1.30 mg/dL [facility] GFR/1.73 sq M.predicted CKD-EPI (S/P/Bld) [Vol rate/Area] 7 Low >=60 mL/min/1.73m 2 [facility] Comment on above: Reported eGFR is bas ed on the CKD-EPI 1 equation using creatinine, age, and sex. Glucose [Mass/Vol] 164 mg/dL High 70 - 99 mg/dL [facility] Interpretation and review of laboratory results Abnormal [facility] Osmolality Calc [Osmolality] 305 [facility] Potassium [Moles/Vol] 5.0 mmol/L 3.5 - 5.0 mmol/L [facility] Sodium [Moles/Vol] 135 mmol/L 135 - 145 mmol/L [facility] Urea nitrogen [Mass/Vol] 56 mg/dL High 7 - 25 mg/dL [facility] Urea nitrogen/Creatinine [Mass ratio] 7 mg/mg [facility] LAVENDER TOP TUBEon 05-17-20 [facility] MAGNESIUMon 05-17-2022 Interpretation and review of laboratory results Normal [facility] Magnesium [Mass/Vol] 1.8 mg/dL 1.6 - 2 .6 mg/dL [facility] Interpretation and review of laboratory results Normal [facility] Magnesium [Mass/Vol] 1.6 mg/dL 1.6 - 2 .6 mg/dL [facility] No Panel Informationon 05-17 [facility] PHOSPHATE, INORGANICon 05-17 Interpretation and review of laboratory results Abnormal [facility] Phosphate [Mass/Vol] 4.9 mg/dL High 2.2 - 4 .6 mg/dL [facility] PT,INR,PTTon 05-17-2022 aPTT Coag (PPP) [Time] 33.0 s [facility] INR Coag (Bld) [Relative time] 1.3 {INR} High [facility] Interpretation and review of laboratory results Abnormal [facility] PT Coag (PPP) [Time] 15.7 s High [facility] Portable XR Chest Viewson IMPRESSION: No [...] IMPRESSION IMPRESSION: No acute findings. [facility] Radiology Study observation (narrative) [facility] Portable XR Chest ViewsOrder ed By: David Sanz on 05-17-2022 [facility] Work Phone: URINALYSISOrdered By: Michael patel Ma on 05-17-2022 Appearance (U) Cloudy Abnormal Clear [facility] Comment on above: Results may be inacc urate due to color interference. Clinical correlation recommended. Bacteria LM Ql (Urine sed) ABSENT ABSENT [facility] Color (U) Red Abnormal Yellow [facility] Comment on above: Results may be inacc urate due to color interference. Clinical correlation recommended. Epithelial cells.squamous LM Ql (Urine sed) ABSENT 1/hpf = 1+, 2-5/hpf = 2+, 0/hpf = 0+, ABSENT [facility] Glucose Test strip (U) [Mass/Vol] Negative Negative [facility] Comment on above: Results may be inacc urate due to color interference. Clinical correlation recommended. Interpretation and review of laboratory results Abnormal [facility] Ketones (U) [Mass/Vol] Trace Abnormal Negative [facility] Comment on above: Results may be inacc urate due to color interference. Clinical correlation recommended. Leukocyte esterase Test strip Ql (U) Large Abnormal Negative [facility] Comment on above: Results may be inacc urate due to color interference. Clinical correlation recommended. Nitrite Ql (U) Negative Negative [facility] Comment on above: Results may be inacc urate due to color interference. Clinical correlation recommended. pH (U) 5.0 [pH] 5.0 - 7.0 [facility] Comment on above: Results may be inacc urate due to color interference. Clinical correlation recommended. Protein (U) [Mass/Vol] mg/dL Abnormal Negative [facility] Comment on above: Results may be inacc urate due to color interference. Clinical correlation recommended. RBC (U) [#/Vol] Large Abnormal Negative [facility] Comment on above: Results may be inacc urate due to color interference. Clinical correlation recommended. RBC LM.HPF (Urine sed) [#/Area] /[HPF] Abnormal 0 - 2 /HPF [facility] Specific gravity (U) [Rel density] 1.016 [facility] Comment on above: Results may be inacc urate due to color interference. Clinical correlation recommended. Urobilinogen (U) [Mass/Vol] 0.2 E.U./dL 0.2 E.U/dL, 1.0 E.U/dL [facility] Comment on above: Results may be inacc urate due to color interference. Clinical correlation recommended. WBC LM.HPF (Urine sed) [#/Area] /[HPF] Abnormal 0 - 5 /HPF [facility] URINE CULTUREOrdered By: Tyler Tiwari on 05-17-2022 Bacteria identified Cx Nom (Unsp spec) No Growth [facility] CBC,PLATELETSon 05-16-2022 Erythrocyte distribution width (RBC) [Ratio] 12.9 % 10.9 - 14.3 % [facility] Hematocrit (Bld) [Volume fraction] 46.5 % 39.6 - 48.8 % [facility] Hemoglobin (Bld) [Mass/Vol] 14.7 g/dL 13.4 - 16.8 g/dL [facility] Interpretation and review of laboratory results Abnormal [facility] MCH (RBC) [Entitic mass] 28.3 pg 26.1 - 33.3 pg [facility] MCHC (RBC) [Mass/Vol] 31.6 g/dL Low 31.9 - 36.5 g/dL [facility] MCV (RBC) [Entitic vol] 89.6 fL 79.0 - 94.5 fL [facility] Platelet mean volume (Bld) [Entitic vol] 10.3 fL 8.7 - 12.3 fL [facility] Platelets (Bld) [#/Vol] 188 10*3/uL 146 - 337 K/uL [facility] RBC (Bld) [#/Vol] 5.19 10*6/uL [facility] WBC (Bld) [#/Vol] 12.55 10*3/uL High 3.73 - 10 .10 K/uL [facility] CHEM 7 (LYTES,BUN,CREA,GLUC) Ordered By: Alma Pena on 05-16-2022 Anion gap [Moles/Vol] 14 mmol/L 7 - 17 mmol/L [facility] Chloride [Moles/Vol] 103 mmol/L 98 - 10 8 mmol/L [facility] CO2 [Moles/Vol] 22 mmol/L 21 - 31 mmol/L [facility] Creatinine [Mass/Vol] 6.09 mg/dL High 0.70 - 1.30 mg/dL [facility] GFR/1.73 sq M.predicted CKD-EPI (S/P/Bld) [Vol rate/Area] 10 Low >=60 mL/min/1.73m 2 [facility] Comment on above: Reported eGFR is bas ed on the CKD-EPI 2020 equation using creatinine, age, and sex. Glucose [Mass/Vol] 134 mg/dL High 70 - 99 mg/dL [facility] Interpretation and review of laboratory results Abnormal [facility] Osmolality Calc [Osmolality] 298 [facility] Potassium [Moles/Vol] 4.9 mmol/L 3.5 - 5.0 mmol/L [facility] Sodium [Moles/Vol] 134 mmol/L Low 135 - 145 mmol/L [facility] Comment on above: Results inconsistent with previous results Urea nitrogen [Mass/Vol] 49 mg/dL High 7 - 25 mg/dL [facility] Urea nitrogen/Creatinine [Mass ratio] 8 mg/mg [facility] CHEM 7 (LYTES,BUN,CREA,GLUC) on 06-17-2022 Anion gap [Moles/Vol] 17 mmol/L 7 - 17 mmol/L [facility] Chloride [Moles/Vol] 106 mmol/L 98 - 10 8 mmol/L [facility] CO2 [Moles/Vol] 22 mmol/L 21 - 31 mmol/L [facility] Creatinine [Mass/Vol] 5.23 mg/dL High 0.70 - 1.30 mg/dL [facility] GFR/1.73 sq M.predicted CKD-EPI (S/P/Bld) [Vol rate/Area] 13 Low >=60 mL/min/1.73m 2 [facility] Comment on above: Reported eGFR is bas ed on the CKD-EPI 2020 equation using creatinine, age, and sex. Glucose [Mass/Vol] 116 mg/dL High 70 - 99 mg/dL [facility] Interpretation and review of laboratory results Abnormal [facility] Osmolality Calc [Osmolality] 305 [facility] Potassium [Moles/Vol] 4.6 mmol/L 3.5 - 5.0 mmol/L [facility] Sodium [Moles/Vol] 140 mmol/L 135 - 145 mmol/L [facility] Urea nitrogen [Mass/Vol] 42 mg/dL High 7 - 25 mg/dL [facility] Urea nitrogen/Creatinine [Mass ratio] 8 mg/mg [facility] EXTRA MICROon 05-16-2022 [facility] LT BLUE TOP TUBEon 2 [facility] LYTES (NA, K, CL) - URINE - RANDOMon 05-16-2022 Chloride (24H U) [Moles/Vol] 68 mmol/L [facility] Potassium (24H U) [Moles/Vol] 36.7 mmol/L [facility] Sodium (24H U) [Moles/Vol] 55 mmol/L [facility] The reference range has not been established for random urine specimens. The test result should be integrated into the clinical context for interpretation. [facility] MAGNESIUMon 05-16-2022 Interpretation and review of laboratory results Normal [facility] Magnesium [Mass/Vol] 1.7 mg/dL 1.6 - 2 .6 mg/dL [facility] NOVEL CORONAVIRUS PCROrdered By: Edson Candelario on 05-16-2022 SARS-CoV-2 (COVID-19) RNA ESTELITA+probe Ql (Unsp spec) Not detected NOT DETECTED [facility] Comment on above: [facility] [...] for use by authorized laboratories. [facility] No Panel Informationon 05-16 [facility] OSMOLALITY, URINEon 05-16-20 Interpretation and review of laboratory results Normal [facility] Osmolality (U) [Osmolality] 320 mosm/kg [facility] The reference range has not been established for random urine specimens. The test result should be integrated into the clinical context for interpretation. [facility] PROCALCITONINon 05-16-2022 Interpretation and review of laboratory results Normal [facility] Procalcitonin [Mass/Vol] 0.18 ng/mL <0.50 [facility] Comment on above: Procalcitonin is an FDA-approved assay to help manage antibiotic treatment in patients with sepsis/septic shock and lower respiratory tract infections. Specifically, trending procalcitonin in these situations can be used to reduce the duration of antibiotics. Please refer to the Procalcitonin Guide on the Antim[employer]wardship Webpage for more guidance on how to use and trend procalcitonin in various clinical settings. [email or web address]?[email or web address]=/departments/Pharmacy/Documents/[email or web address] [email or web address].[email or web address]&action=[email or web address] Two common cutoffs associated with bacterial infections are as follows. Respiratory tract infections: >0.25 ng/mL Sepsis/septic shock: >0.5 ng/mL Procalcitonin should not be used alone as a diagnostic tool, however. All procalcitonin results should be interpreted in association with the patients clinical condition and all laboratory findings. [facility] PT,INR,PTTon 05-16-2022 aPTT Coag (PPP) [Time] 30.3 s [facility] INR Coag (Bld) [Relative time] 1.1 {INR} [facility] Interpretation and review of laboratory results Normal [facility] PT Coag (PPP) [Time] 14.1 s [facility] SARS-CoV-2 (COVID-19) RNA NA A+probe Ql (Unsp spec)Ordered By: Edson Candelario on 05-16-2022 Interpretation and review of laboratory results Normal [facility] TACROLIMUS LEVEL, TROUGH (DC E DRUG LEVEL)Ordered By: Mariama Nick on 05-16-2022 Interpretation and review of laboratory results Normal [facility] Tacrolimus (Bld) [Mass/Vol] 4.1 ng/mL Bone Marrow Transplant: 4.0-12.0, Therapeutic: 5.0-15.0 [facility] Method performed is a chemiluminescent microparticle immunoasssay on the [employer] i2000. The range is based on experience at [facility] and users should be aware that target concentrations vary widely depending on concomitant therapy, time post-transplant, and desired degree of immunosuppression. [facility] URINE PROTEIN/CREA RATIO, RA ARPITOMon 05-16-2022 Creatinine (24H U) [Mass/Vol] 59.82 mg/dL [facility] Protein Unsp time (U) [Mass/Vol] 111 mg/dL [facility] Protein/Creatinine (U) [Mass ratio] 1.856 mg/g [facility] US for transplanted kidney dina sánchez 05-16-2022 [...] Bladder: The bladder is decompressed with a Maitas catheter. Abdomen: No ascites in the visualized [...] flow in the transplant kidney. [facility] Radiology Study observation (narrative) [facility] US for transplanted kidney l imitedOrdered By: Rosendo Matute on 05-16-2022 [facility] Work Phone: CBC AND ELECTRONIC DIFFon Basophils (Bld) [#/Vol] 10*3/uL 0.00 - 0.09 K/uL [facility] Basophils/100 WBC (Bld) 0.2 % [facility] Differential cell count method Nom (Bld) Electronic Differential [facility] Eosinophils (Bld) [#/Vol] 10*3/uL 0.00 - 0.48 K/uL [facility] Eosinophils/100 WBC (Bld) 0.0 % [facility] Erythrocyte distribution width (RBC) [Ratio] 12.8 % 10.9 - 14.3 % [facility] Hematocrit (Bld) [Volume fraction] 46.0 % 39.6 - 48.8 % [facility] Hemoglobin (Bld) [Mass/Vol] 14.6 g/dL 13.4 - 16.8 g/dL [facility] Immature granulocytes (Bld) [#/Vol] 0.07 10*3/uL <=0.08 [facility] Immature granulocytes/100 WBC (Bld) 0.4 % [facility] Interpretation and review of laboratory results Abnormal [facility] Lymphocytes (Bld) [#/Vol] 1.49 10*3/uL 0.83 - 3.57 K/uL [facility] Lymphocytes/100 WBC (Bld) 9.4 % [facility] MCH (RBC) [Entitic mass] 28.2 pg 26.1 - 33.3 pg [facility] MCHC (RBC) [Mass/Vol] 31.7 g/dL Low 31.9 - 36.5 g/dL [facility] MCV (RBC) [Entitic vol] 89.0 fL 79.0 - 94.5 fL [facility] Monocytes (Bld) [#/Vol] 1.45 10*3/uL High 0.24 - 0.93 K/uL [facility] Monocytes/100 WBC (Bld) 9.2 % [facility] Neutrophils (Bld) [#/Vol] 12.77 10*3/uL High 1.57 - 6.19 K/uL [facility] Nucleated RBC/100 WBC (Bld) [Ratio] 0.0 % <=0.2 /100 WBC [facility] Platelet mean volume (Bld) [Entitic vol] 9.9 fL 8.7 - 12.3 fL [facility] Platelets (Bld) [#/Vol] 250 10*3/uL 146 - 337 K/uL [facility] RBC (Bld) [#/Vol] 5.17 10*6/uL [facility] Segmented neutrophils/100 WBC (Bld) 80.8 % [facility] WBC (Bld) [#/Vol] 15.81 10*3/uL High 3.73 - 10 .10 K/uL [facility] CBC AUTO DIFFon 05-15-2022 BASO # 0.0 103/ul Normal 0.0-0.[address] [facility] Comment on above: Performed By: #### C BC #### [facility] [address] [place] [address] Dr. Dwight Waters Basophils/100 WBC (Bld) 0.3 % Normal 0.2-2.[address] [facility] Comment on above: Performed By: #### C BC #### [facility] [address] [place] [address] Dr. Dwight Waters EO # 0.1 103/ul Normal 0.0-0.7 [facility] Comment on above: Performed By: #### C BC #### [facility] [address] [place] [address] Dr. Dwight Waters Eosinophils/100 WBC (Bld) 0.8 % Critically low 0.9-7.0 [facility] Comment on above: Performed By: #### C BC #### [facility] [address] [place] [address] Dr. Dwight Waters Erythrocyte distribution width (RBC) [Ratio] 12.7 % Normal 11.0-15.[address] [facility] Comment on above: Performed By: #### C BC #### [facility] [address] [place] [address] Dr. Dwight Waters Hematocrit (Bld) [Volume fraction] 43.5 % Normal 42.0-54.[address] [facility] Comment on above: Performed By: #### C BC #### [facility] [address] [place] [address] Dr. Dwight Waters Hemoglobin (Bld) [Mass/Vol] 14.4 g/dL Normal 14.0-18.[address] [facility] Comment on above: Performed By: #### C BC #### [facility] [address] [place] [address] Dr. Dwight Waters IG # 0.02 10e3/ul Normal 0.00-0.[address] [facility] Comment on above: Performed By: #### C BC #### [facility] [address] [place] [address] Dr. Dwight Waters IG % 0.2 % Normal 0.0-0.[address] [facility] Comment on above: Performed By: #### C BC #### [facility] [address] [place] [address] Dr. Dwight Waters LYMPH # 1.5 103/ul Normal 1.2-3.[address] [facility] Comment on above: Performed By: #### C BC #### [facility] [address] [place] [address] Dr. Dwight Waters Lymphocytes/100 WBC (Bld) 12.5 % Critically low 20.5-60.[address] [facility] Comment on above: Performed By: #### C BC #### [facility] [address] [place] [address] Dr. Dwight Waters MANUAL DIFF REQ NO Normal [facility] Comment on above: Performed By: #### C BC #### [facility] [address] [place] [address] Dr. Dwight Waters MCH (RBC) [Entitic mass] 28.6 pg Normal 25.9-34.[address] [facility] Comment on above: Performed By: #### C BC #### [facility] [address] [address] [address] Dwight Waters MCHC (RBC) [Mass/Vol] 33.1 g/dL Normal 29.9-35.[address] [facility] Comment on above: Performed By: #### C BC #### [facility] [address] [address] [address] Dwight Waters MCV (RBC) [Entitic vol] 86.3 fL Normal 80.0-94.[address] [facility] Comment on above: Performed By: #### C BC #### [facility] [address] [address] [address] Dwight Waters MONO # 1.0 103/ul Critically high 0.3-0.[address] [facility] Comment on above: Performed By: #### C BC #### [facility] [address] [place] [address] Dr. Dwight Waters Monocytes/100 WBC (Bld) 8.2 % Normal 1.7-12.[address] [facility] Comment on above: Performed By: #### C BC #### [facility] [address] [address] [address] Dwight Waters NEUT # 9.1 103/ul Critically high 1.4-6.[address] [facility] Comment on above: Performed By: #### C BC #### [facility] [address] [place] [address] Dr. Dwight Waters Neutrophils/100 WBC (Bld) 78.0 % Critically high 43.0-75.[address] [facility] Comment on above: Performed By: #### C BC #### [facility] [address] [address] [address] Dwight Waters Platelet mean volume (Bld) [Entitic vol] 9.8 fL Normal 9.5-13.[address] [facility] Comment on above: Performed By: #### C BC #### [facility] [address] [place] [address] Dr. Dwight Waters PLT 251 103/ul Normal 150-450 [facility] Comment on above: Performed By: #### C BC #### [facility] [address], [place] [address] Dr. Dwight Waters RBC 5.04 106/ul Normal 4.70-6.[address] [facility] Comment on above: Performed By: #### C BC #### [facility] [address], [place] [address] Dr. Dwight Waters WBC 11.6 103/ul Critically high 4.0-11.[address] [facility] Comment on above: Performed By: #### C BC #### [facility] [address], [place] [address] Dr. Dwight Waters CHEM 6 (LYTES, BUN CREA)on 0 05-15-2022 Anion gap [Moles/Vol] 12 mmol/L 7 - 17 mmol/L [facility] Chloride [Moles/Vol] 105 mmol/L 98 - 10 8 mmol[facility]L [facility] CO2 [Moles/Vol] 26 mmol/L 21 - 31 mmol/L [facility] Creatinine [Mass/Vol] 2.85 mg/dL High 0.70 - 1.30 mg/dL [facility] GFR/1.73 sq M.predicted CKD-EPI (S/P/Bld) [Vol rate/Area] 26 Low >=60 mL/min/1.73m 2 [facility] Comment on above: Reported eGFR is bas ed on the CKD-EPI 2020 equation using creatinine, age, and sex. Potassium [Moles/Vol] 4.6 mmol/L 3.5 - 5.0 mmol/L [facility] Sodium [Moles/Vol] 138 mmol/L 135 - 145 mmol/L [facility] Urea nitrogen [Mass/Vol] 32 mg/dL High 7 - 25 mg/dL [facility] Urea nitrogen/Creatinine [Mass ratio] 11 [facility]LVIS WO CONon 05-15 [...] transplanted kidney with moderate right-sided hydronephrosis. Atrophic [place] kidneys with moderate right-sided hydronephrosis. Multiple nonobstructive [...] transplanted kidney with moderate right-sided hydronephrosis. Atrophic [place] kidneys with moderate right-sided hydronephrosis. Multiple nonobstructive right renal calculi measuring up to 8 mm. FOLLOW-UP: Follow-up as clinically indicated. Electronically authenticated by: LYNDSAY JEAN Date: 2022-05-15 05:04 Normal [facility]30 SARS-CoV-2 (COVID-19) RNA ESTELITA+probe Ql (Unsp spec) Not detected Normal NOT DETECTED [facility] Comment on above: Result Comment: [...] for this test is supported by the [place] of Health and Human Service's declaration that [...] used). Performed By: #### U RTPCR #### [facility] [address] [address] [address] Dwight Waters GLUCOSEon 05-15-2022 Glucose [Mass/Vol] 141 mg/dL High 70 - 99 mg/dL [facility] GOLD TOP TUBEon 05-15-2022 [facility] HEPATIC FUNCTION PANELon Albumin [Mass/Vol] 4.3 g/dL 3.5 - 5.0 g/dL [facility] ALP [Catalytic activity/Vol] 85 U/L 32 - 126 U/L [facility] ALT [Catalytic activity/Vol] 13 U/L 10 - 52 U/L [facility] AST [Catalytic activity/Vol] 15 U/L 10 - 39 U/L [facility] Bilirubin [Mass/Vol] 0.8 mg/dL <1.5 [facility] Bilirubin.direct [Mass/Vol] 0.2 mg/dL <0.3 [facility] Interpretation and review of laboratory results Normal [facility] Protein [Mass/Vol] 7.3 g/dL 6.4 - 8.3 g/dL [facility] LIPASEon 05-15-2022 Lipase [Catalytic activity/Vol] 8 U/L Low 11 - 82 U/L [facility] No Panel Informationon 05-15 Interpretation and review of laboratory results Abnormal [facility] PROF 14(COMP METB)on 022 Albumin [Mass/Vol] 3.8 g/dL Normal 3.4-5.[address] [facility] Comment on above: Performed By: #### U RTPCR #### [facility] [address] [address] [address] Dwight Waters Albumin/Globulin [Mass ratio] 1.1 {ratio} Normal [facility] Comment on above: Performed By: #### U RTPCR #### [facility] [address] [place] [address] Dr. Dwight Waters ALP [Catalytic activity/Vol] 92 U/L Normal 46-[address] [facility] Comment on above: Performed By: #### U RTPCR #### [facility] [address] [place] [address] Dr. Dwight Waters ALT [Catalytic activity/Vol] 25 U/L Normal 16-63 [facility] Comment on above: Performed By: #### U RTPCR #### [facility] [address] [place] [address] Dr. Dwight Waters Anion gap [Moles/Vol] 14.6 mmol/L Normal [facility] Comment on above: Performed By: #### U RTPCR #### [facility] [address] [place] [address] Dr. Dwight Waters AST [Catalytic activity/Vol] 17 U/L Normal 15-[address] [facility] Comment on above: Performed By: #### U RTPCR #### [facility] [address] [place] [address] Dr. Dwight Waters Bilirubin [Mass/Vol] 0.6 mg/dL Normal 0.2-1.[address] [facility] Comment on above: Performed By: #### U RTPCR #### [facility] [address] [place] [address] Dr. Dwight Waters Calcium [Mass/Vol] 9.9 mg/dL Normal 8.5-10.1 [facility] Comment on above: Performed By: #### U RTPCR #### [facility] [address] [place] [address] Dr. Dwight Waters Chloride [Moles/Vol] 106 mmol/L Normal 98-107 [facility] Comment on above: Performed By: #### U RTPCR #### [facility] [address] [place] [address] Dr. Dwight Waters CO2 [Moles/Vol] 24.2 mmol/L Normal 21.0-32.0 [facility] Comment on above: Performed By: #### U RTPCR #### [facility] [address] [address] [address] Dwight Waters Creatinine [Mass/Vol] 1.58 mg/dL Critically high 0.70-1.[address] [facility] Comment on above: Performed By: #### U RTPCR #### [facility] [address] [address] [address] Dwight Waters EGFR-AF COLOMBIAN 56 mL/min/1.73m2 Critically low >=[address] [facility] Comment on above: Performed By: #### U RTPCR #### [facility] [address] [address] [address] Dwight Waters EGFR-NON AF [place] 46 mL/min/1.73m2 Critically low >=[address] [facility] Comment on above: Performed By: #### U RTPCR #### [facility] [address] [address] [address] Dwight Waters Globulin (S) [Mass/Vol] 3.5 g/dL Normal [facility] Comment on above: Performed By: #### U RTPCR #### [facility] [address] [address] [address] Dwight Waters Glucose [Mass/Vol] 162 mg/dL Critically high 74-106 T [facility] Comment on above: Performed By: #### U RTPCR #### [facility] [address] [address] [address] Dwight Waters Potassium [Moles/Vol] 3.8 mmol/L Normal 3.5-5.[address] [facility] Comment on above: Performed By: #### U RTPCR #### [facility] [address] [address] [address] Dwight Waters Protein [Mass/Vol] 7.3 g/dL Normal 6.4-8.2 [facility] Comment on above: Performed By: #### U RTPCR #### [facility] [address] [address] [address] Dwight Waters Sodium [Moles/Vol] 141 mmol/L Normal 136-[address] [facility] Comment on above: Performed By: #### U RTPCR #### [facility] [address], [place] [address] Dr. Dwight Waters Urea nitrogen [Mass/Vol] 22.0 mg/dL Critically high 7.0-18.[address] [facility] Comment on above: Performed By: #### U RTPCR #### [facility] [address], [place] [address] Dr. Dwight Waters Urea nitrogen/Creatinine [Mass ratio] 13.9 mg/mg Normal [facility] Comment on above: Performed By: #### U RTPCR #### [facility] [address], [place] [address] Dr. Dwight Waters Portable XR Chest Viewson [...] IMPRESSION: No acute cardiopulmonary disease [facility] Chest ViewsOrder ed By: Vladislav Omer on 05-15-2022 [facility] URINE DIPSTICK; REFLEX MICRO SCOPY; REFLEX CULTURE PERFORMABLEon 05-15-2022 Appearance (U) Clear Clear [facility] Color (U) Yellow Yellow [facility] Glucose Test strip (U) [Mass/Vol] 100 mg/dL Abnormal Negative [facility] Interpretation and review of laboratory results Abnormal [facility] Ketones (U) [Mass/Vol] Negative Negative [facility] Leukocyte esterase Test strip Ql (U) Large Abnormal Negative [facility] Nitrite Ql (U) Negative Negative [facility] pH (U) 6.0 [pH] 5.0 - 7.0 [facility] Protein (U) [Mass/Vol] 100 mg/dL Abnormal Negative [facility] RBC (U) [#/Vol] Large Abnormal Negative [facility] Specific gravity (U) [Rel density] 1.010 [facility] Urobilinogen (U) [Mass/Vol] 0.2 E.U./dL 0.2 E.U/dL, 1.0 E.U/dL [facility] URINE MICROSCOPIC WITH REFLE X TO CULTUREOrdered By: Rey Bro on 05-15-2022 Bacteria LM Ql (Urine sed) ABSENT ABSENT [facility] Epithelial cells.squamous LM Ql (Urine sed) ABSENT 1/hpf = 1+, 2-5/hpf = 2+, 0/hpf = 0+, ABSENT [facility] Interpretation and review of laboratory results Abnormal [facility] RBC LM.HPF (Urine sed) [#/Area] /[HPF] Abnormal 0 - 2 /HPF [facility] WBC LM.HPF (Urine sed) [#/Area] 10-20 Abnormal [...] 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 The [place] kidneys are progressively atrophic bilaterally compared to [...] of 06/14/2020 are no longer present. The [place] distal right ureter is decompressed beyond this [...] with surgical history for renal graft and [place] right urinary drainage, as a discrete ureteroneocystostomy is not identified, and the graft may be draining via a ureteroureterostomy. Urology consultation recommended. 3. The [place] kidneys are bilaterally atrophic, with right renal sinus calcifications consistent with nonobstructing right [place] renal calculi up to 6 mm. Normal [facility] CBC AUTO DIFFon 05-11-2022 BASO # 0.1 103/ul Normal 0.0-0.1 [facility] Comment on above: Performed By: #### U RTPCR #### [facility] [address] [place] [address] Dr. Dwight Waters Basophils/100 WBC (Bld) 0.8 % Normal 0.2-2.[address] [facility] Comment on above: Performed By: #### U RTPCR #### [facility] [address] [address] [address] Dwight Waters EO # 0.2 103/ul Normal 0.0-0.7 [facility] Comment on above: Performed By: #### U RTPCR #### [facility] [address] [place] [address] Dr. Dwight Waters Eosinophils/100 WBC (Bld) 2.5 % Normal 0.9-7.0 [facility] Comment on above: Performed By: #### U RTPCR #### [facility] [address] [address] [address] Dwight Waters Erythrocyte distribution width (RBC) [Ratio] 12.5 % Normal 11.0-15.0 [facility] Comment on above: Performed By: #### U RTPCR #### [facility] [address] [place] [address] Dr. Dwight Waters Hematocrit (Bld) [Volume fraction] 48.3 % Normal 42.0-54.[address] [facility] Comment on above: Performed By: #### U RTPCR #### [facility] [address] [place] [address] Dr. Dwight Waters Hemoglobin (Bld) [Mass/Vol] 15.3 g/dL Normal 14.0-18.[address] [facility] Comment on above: Performed By: #### U RTPCR #### [facility] [address] [place] [address] Dr. Dwight Waters IG # 0.01 10e3/ul Normal 0.00-0.03 [facility] Comment on above: Performed By: #### U RTPCR #### [facility] [address] [place] [address] Dr. Dwight Waters IG % 0.2 % Normal 0.0-0.[address] [facility] Comment on above: Performed By: #### U RTPCR #### [facility] [address] [place] [address] Dr. Dwight Waters LYMPH # 1.9 103/ul Normal 1.2-3.8 [facility] Comment on above: Performed By: #### U RTPCR #### [facility] [address] [place] [address] Dr. Dwihgt Waters Lymphocytes/100 WBC (Bld) 29.8 % Normal 20.5-60.[address] [facility] Comment on above: Performed By: #### U RTPCR #### [facility] [address] [place] [address] Dr. Dwight Waters MANUAL DIFF REQ NO Normal [facility] Comment on above: Performed By: #### U RTPCR #### [facility] [address] [place] [address] Dr. Dwight Waters MCH (RBC) [Entitic mass] 28.2 pg Normal 25.9-34.0 [facility] Comment on above: Performed By: #### U RTPCR #### [facility] [address] [place] [address] Dr. Dwight Waters MCHC (RBC) [Mass/Vol] 31.7 g/dL Normal 29.9-35.2 [facility] Comment on above: Performed By: #### U RTPCR #### [facility] [address] [address] [address] Dwight Waters MCV (RBC) [Entitic vol] 89.1 fL Normal 80.0-94.0 [facility] Comment on above: Performed By: #### U RTPCR #### [facility] [address] [place] [address] Dr. Dwight Waters MONO # 0.6 103/ul Normal 0.3-0.8 [facility] Comment on above: Performed By: #### U RTPCR #### [facility] [address] [place] [address] Dr. Dwight Waters Monocytes/100 WBC (Bld) 9.0 % Normal 1.7-12.0 [facility] Comment on above: Performed By: #### U RTPCR #### [facility] [address] [place] [address] Dr. Dwight Waters NEUT # 3.6 103/ul Normal 1.4-6.[address] [facility] Comment on above: Performed By: #### U RTPCR #### [facility] [address] [place] [address] Dr. Dwight Waters Neutrophils/100 WBC (Bld) 57.7 % Normal 43.0-75.[address] [facility] Comment on above: Performed By: #### U RTPCR #### [facility] [address] [place] [address] Dr. Dwight Waters Platelet mean volume (Bld) [Entitic vol] 9.9 fL Normal 9.5-13.5 [facility] Comment on above: Performed By: #### U RTPCR #### [facility] [address] [place] [address] Dr. Dwight Waters PLT 249 103/ul Normal 150-450 [facility] Comment on above: Performed By: #### U RTPCR #### [facility] [address] [place] [address] Dr. Dwight Waters RBC 5.42 106/ul Normal 4.70-6.10 [facility] Comment on above: Performed By: #### U RTPCR #### [facility] [address] [place] [address] Dr. Dwight Waters WBC 6.3 103/ul Normal 4.0-11.[address] [facility] Comment on above: Performed By: #### U RTPCR #### [facility] [address] [place] [address] Dr. Dwight Waters ER URINE PROFILEon 2 Bilirubin Ql (U) Unable to perform te sting due to color interference. Abnormal NEGATIVE [facility] Comment on above: Performed By: #### U RTPCR #### [facility] [address] [place] [address] Dr. Dwight Waters Clarity (U) TURBID Abnormal CLEAR [facility] Comment on above: Performed By: #### U RTPCR #### [facility] [address] [place] [address] Dr. Dwight Waters Color (U) RED Abnormal YELLOW [facility] Comment on above: Performed By: #### U RTPCR #### [facility] [address] [place] [address] Dr. Dwight Waters ERUAHD A micrscopic examina tion will be performed if indicated. Normal [facility] Comment on above: Performed By: #### U RTPCR #### [facility] [address] [place] [address] Dr. Dwight Waters Glucose Ql (U) Unable to perform te sting due to color interference. Abnormal NEGATIVE [facility] Comment on above: Performed By: #### U RTPCR #### [facility] [address] [place] [address] Dr. Dwight Waters Hemoglobin Ql (U) Unable to perform te sting due to color interference. Abnormal NEGATIVE [facility] Comment on above: Performed By: #### U RTPCR #### [facility] [address] [place] [address] Dr. Dwight Waters Ketones Ql (U) Unable to perform te sting due to color interference. Abnormal NEGATIVE [facility] Comment on above: Performed By: #### U RTPCR #### [facility] [address] [place] [address] Dr. Dwight Waters LEUKOCYTES Unable to perform te sting due to color interference. Abnormal NEGATIVE [facility] Comment on above: Performed By: #### U RTPCR #### [facility] [address] [place] [address] Dr. Dwight Waters Nitrite Ql (U) Unable to perform te sting due to color interference. Abnormal NEGATIVE [facility] Comment on above: Performed By: #### U RTPCR #### [facility] [address] [place] [address] Dr. Dwight Waters pH (U) 6.5 [pH] Normal 5-[address] [facility] Comment on above: Performed By: #### U RTPCR #### [facility] [address] [place] [address] Dr. Dwight Waters SPEC GRAVITY 1.020 Normal 1.005-<=1.[address] [facility] Comment on above: Performed By: #### U RTPCR #### [facility] [address] [place] [address] Dr. Dwight Waters UA PROTEIN Unable to perform te sting due to color interference. Normal NEGATIVE/ TRACE [facility] Comment on above: Performed By: #### U RTPCR #### [facility] [address] [place] [address] Dr. Dwight Waters UR MICRO IND INDICATED Normal [facility] Comment on above: Performed By: #### U RTPCR #### [facility] [address] [place] [address] Dr. Dwight Waters UROBILINOGEN Unable to perform te sting due to color interference. Normal 0.2 - 1.[address] [facility] Comment on above: Performed By: #### U RTPCR #### [facility] [address] [place] [address] Dr. Dwight Waters PROF 14(COMP METB)on 022 Albumin [Mass/Vol] 3.8 g/dL Normal 3.4-5.[address] [facility] Comment on above: Performed By: #### C MP #### [facility] [address] [place] [address] Dr. Dwight Waters Albumin/Globulin [Mass ratio] 1.1 {ratio} Normal [facility] Comment on above: Performed By: #### C MP #### [facility] [address] [address] [address] Dwight Waters ALP [Catalytic activity/Vol] 106 U/L Normal 46-116 [facility] Comment on above: Performed By: #### C MP #### [facility] [address] [place] [address] Dr. Dwight Waters ALT [Catalytic activity/Vol] 30 U/L Normal 16-63 [facility] Comment on above: Performed By: #### C MP #### [facility] [address] [place] [address] Dr. Dwight Waters Anion gap [Moles/Vol] 11.7 mmol/L Normal [facility] Comment on above: Performed By: #### C MP #### [facility] [address] [place] [address] Dr. Dwight Waters AST [Catalytic activity/Vol] 16 U/L Normal 15-37 [facility] Comment on above: Performed By: #### C MP #### [facility] [address] [place] [address] Dr. Dwight Waters Bilirubin [Mass/Vol] 0.6 mg/dL Normal 0.2-1.[address] [facility] Comment on above: Performed By: #### C MP #### [facility] [address] [place] [address] Dr. Dwight Waters Calcium [Mass/Vol] 9.1 mg/dL Normal 8.5-10.1 [facility] Comment on above: Performed By: #### C MP #### [facility] [address] [place] [address] Dr. Dwight Waters CO2 [Moles/Vol] 27.4 mmol/L Normal 21.0-32.0 [facility] Comment on above: Performed By: #### C MP #### [facility] [address] [place] [address] Dr. Dwight Waters Creatinine [Mass/Vol] 1.18 mg/dL Normal 0.70-1.30 [facility] Comment on above: Performed By: #### C MP #### [facility] [address] [place] [address] Dr. Dwight Waters EGFR-AF COLOMBIAN >60 Normal >=[address] [facility] Comment on above: Performed By: #### C MP #### [facility] [address] [place] [address] Dr. Dwight Waters EGFR-NON AF [place]BI[place] >60 Normal >=[address] [facility] Comment on above: Performed By: #### C MP #### [facility] [address] [address] [address] Dwight Waters Globulin (S) [Mass/Vol] 3.6 g/dL Normal [facility] Comment on above: Performed By: #### C MP #### [facility] [address] [place] [address] Dr. Dwight Waters Glucose [Mass/Vol] 192 mg/dL Critically high 74-106 T [facility] Comment on above: Performed By: #### C MP #### [facility] [address] [place] [address] Dr. Dwight Waters Potassium [Moles/Vol] 4.1 mmol/L Normal 3.5-5.[address] [facility] Comment on above: Performed By: #### C MP #### [facility] [address] [place] [address] Dr. Dwight Waters Protein [Mass/Vol] 7.4 g/dL Normal 6.4-8.[address] [facility] Comment on above: Performed By: #### C MP #### [facility] [address] [place] [address] Dr. Dwight Waters Sodium [Moles/Vol] 142 mmol/L Normal 136-[address] [facility] Comment on above: Performed By: #### C MP #### [facility] [address] [place] [address] Dr. Dwight Waters Urea nitrogen [Mass/Vol] 17.0 mg/dL Normal 7.0-18.[address] [facility] Comment on above: Performed By: #### C MP #### [facility] [address] [place] [address] Dr. Dwight Waters Urea nitrogen/Creatinine [Mass ratio] 14.4 mg/mg Normal [facility] Comment on above: Performed By: #### C MP #### [facility] [address] [place] [address] Dr. Dwight Waters URINE MICROSCOPIC ONLYon BACTERIA NONE SEEN Normal NONE SEEN [facility] Comment on above: Performed By: #### U RTPCR #### [facility] [address] [place] [address] Dr. Dwight Waters Bacteria identified Cx Nom (U) NOT INDICATED Normal [facility] Comment on above: Performed By: #### U RTPCR #### [facility] [address] [place] [address] Dr. Dwight Waters CAST NONE SEEN Normal NONE SEEN [facility] Comment on above: Performed By: #### U RTPCR #### [facility] [address] [place] [address] Dr. Dwight Waters Crystals LM Nom (Urine sed) NONE SEEN Normal NONE SEEN [facility] Comment on above: Performed By: #### U RTPCR #### [facility] [address] [place] [address] Dr. Dwight Waters Epithelial cells LM Ql (Urine sed) RARE Normal NONE SEEN /RARE [facility] Comment on above: Performed By: #### U RTPCR #### [facility] [address] [place] [address] Dr. Dwight Waters MUCOUS NONE SEEN Normal NONE SEEN [facility] Comment on above: Performed By: #### U RTPCR #### [facility] [address] [place] [address] Dr. Dwight Waters RBC (U) [#/Vol] /uL Abnormal 0-2 [facility] Comment on above: Performed By: #### U RTPCR #### [facility] [address] [place] [address] Dr. Dwight Waters WBC NONE SEEN Normal NONE SEEN [facility] Comment on above: Performed By: #### U RTPCR #### [facility] [address] [place] [address] Dr. Dwight Waters K (Potassium)on 01-06-2020 Potassium [Moles/Vol] 4.4 mmol/L Normal 3.7-5.3 [facility] Comment on above: Performed By: #### K #### [facility] [address] [place], [place] [id number] End Worker: Kehinde Woodward MD Potassiumon 01-06-2020 Potassium [Moles/Vol] 4.4 mmol/L 3.7 - 5.3 mmol/L [facility] Work Phone: Hemoglobin and Hematocrit, B loodon 10-24-2019 Hematocrit (Bld) [Volume fraction] 23.6 % Low 40.7 - 50.3 % [place], [place] Hemoglobin (Bld) [Mass/Vol] 7.3 g/dL Low 13 - 17 g/dL [place], [place] Interpretation and review of laboratory results Abnormal [place] Hgb/Hcton 10-24-2019 Hematocrit (Bld) [Volume fraction] 23.6 % Low 40.7-50.3 [facility] Comment on above: Performed By: #### H H #### [facility] [address] [place], [id number] End Worker: Kehinde Woodward MD Hemoglobin (Bld) [Mass/Vol] 7.3 g/dL Low 13.0-17.0 [facility] Comment on above: Performed By: #### H H #### [facility] [address] [place], [facility] End Worker: Kehinde Woodward MD Hemoglobinon 08-27-2019 Hemoglobin (Bld) [Mass/Vol] 7.5 g/dL Low 13.0-17.0 [facility] Comment on above: Performed By: #### H GB #### [facility] [address] [place] [address] End Worker: Kehinde Woodward MD Hemoglobin (Bld) [Mass/Vol] 7.5 g/dL Low 13 - 17 g/dL [place], [place] Interpretation and review of laboratory results Abnormal [place] Hemoglobinon 08-08-2019 Hemoglobin (Bld) [Mass/Vol] 8.3 g/dL Low 13.0-17.0 [facility] Comment on above: Performed By: #### H GB #### [facility] [address] [place], [place] [address] End Worker: Kehinde Woodward MD Hemoglobin (Bld) [Mass/Vol] 8.3 g/dL Low 13 - 17 g/dL [place], [place] Interpretation and review of laboratory results Abnormal [place] Hemoglobinon 08-04-2019 Hemoglobin (Bld) [Mass/Vol] 8.0 g/dL Low 13.0-17.0 [facility] Comment on above: Performed By: #### H GB #### [facility] [address] [place], [place] [address] End Worker: Kehinde Woodward MD Hemoglobin A1Con 08-03-2019 HbA1c (Bld) [Mass fraction] % Low 4.8-5.9 [facility] Comment on above: Result Comment: The ADA and AACC recommend providing the estimated average glucose result to permit better patient understanding of their HBA1c result. Performed By: #### G LYHGB #### [address] [place], [place] [address] End Worker: Kehinde Woodward MD Glucose [Mass/Vol] mg/dL mg/dL [place], [place] Comment on above: The ADA and AACC rec ommend providing the estimated average glucose result to permit better patient understanding of their HBA1c result. HbA1c (Bld) [Mass fraction] % Low 4.8 - 5.9 % [place] Interpretation and review of laboratory results Abnormal [place] Hemoglobinon 08-01-2019 Hemoglobin (Bld) [Mass/Vol] 8.1 g/dL Low 13.0-17.0 [facility] Comment on above: Performed By: #### H GB #### [facility] [address] [place] [address] [address] [place], [place] [address] End Worker: Kehinde Woodward MD Hemoglobin (Bld) [Mass/Vol] 8.1 g/dL Low 13 - 17 g/dL [place] Interpretation and review of laboratory results Abnormal [place] Hgb/Hcton 06-10-2019 Hematocrit (Bld) [Volume fraction] 24.3 % Low 40.7-50.3 [facility] Comment on above: Performed By: #### H H #### [facility] [address] [place] [id number] End Worker: Kehinde Woodward MD Hemoglobin (Bld) [Mass/Vol] 7.4 g/dL Low 13.0-17.0 [facility] Comment on above: Performed By: #### H H #### [address] [place], [place] [address] End Worker: Kehinde Woodward MD Hemoglobinon 06-01-2019 Hemoglobin (Bld) [Mass/Vol] 7.2 g/dL Low 13.0-17.0 [facility] Comment on above: Performed By: #### H GB #### [address] [place] [address] End Worker: Kehinde Woodward MD K (Potassium)on 01-14-2019 Potassium [Moles/Vol] 3.6 mmol/L Low 3.7-5.3 [facility] Comment on above: Performed By: #### K #### [facility] [address] [place] [address] [address] [place], [place] [address] End Worker: Kehinde Woodward MD Otheron 10-19-2018 IMPRESSION: [...] No confirmatory testing will follow. Invalid Interpretation [facility], [facility] Comment on above: This Liquid Chromato graphy Mass Spectrometry (LC/MS/MS) test was developed and its performance characteristics determined by Toxicology Laboratory at [facility]. It has not been cleared or [...] Amitriptyline(50), Amphetamine(250), Atenolol(500), Barbiturates(1000), Benzoylecgonine(50), Buprenorphine(50), Bupropion(25), Caffeine(29843), Chlordiazepoxide(50), Chlorpheniramine(100), Chlorpromazine(50), Citalopram(100), Clonazepam(200), Cocaine(25), Codeine(200), [...] Code MISSY, [facility] TOXICOLOGY SCREEN URINE - [facility] 10-12-2018 Drugs identified Screen Nom (U) For Medical Purposes Only, Non-forensic, screen results are presumptive. No confirmatory testing will follow. Invalid Interpretation Code LAB, [facility] Comment on above: This Liquid Chromato graphy Mass Spectrometry (LC/MS/MS) test was developed and its performance characteristics determined by Toxicology Laboratory at [facility]. It has not been cleared or [...] Amitriptyline(50), Amphetamine(250), Atenolol(500), Barbiturates(200), Benzoylecgonine(50), Buprenorphine(500), Bupropion(25), Caffeine(95096), Cannabinoids(THC)(50), Chlordiazepoxide(50), Chlorpheniramine(100), Chlorpromazine(50), Citalopram(100), Clonazepam(200), Cocaine(25), [...] 56 mm[Hg] Candie Almaguer MD Work Phone: [facility] 02-26-2024 09:07-0400 Heart rate 65 /min Candie Almaguer MD Work Phone: [facility] 02-26-2024 09:07-0400 Systolic blood pressure 113 mm[Hg] Candie Almaguer MD Work Phone: [facility] 02-26-2024 09:06-0400 Body height 170.2 cm Candie Almaguer MD Work Phone: [facility] 02-26-2024 09:06-0400 Body mass index (BMI) [Ratio] 28.9 kg/m2 Candie Almaguer MD Work Phone: [facility] 02-26-2024 09:06-0400 Body weight 83.69 kg Candie Almaguer MD Work Phone: [facility] 02-26-2024 09:06-0400 Respiratory rate 20 /min Candie Almaguer MD Work Phone: [facility] 02-26-2024 09:06-0400 SaO2% (BldA) [Mass fraction] 97 % Candie Almaguer MD Work Phone: [facility] 01-23-2024 15:04-0500 Body temperature 97.9 [degF] Kevin Sage MD Work Phone: [facility] 01-23-2024 15:04-0500 Diastolic blood pressure 67 mm[Hg] Kevin Sage MD Work Phone: [facility] 01-23-2024 15:04-0500 Heart rate 51 /min Kevin Sage MD Work Phone: [facility] 01-23-2024 15:04-0500 Respiratory rate 16 /min Kevin Sage MD Work Phone: [facility] 01-23-2024 15:04-0500 SaO2% (BldA) [Mass fraction] 94 % Kevin Sage MD Work Phone: [facility] 01-23-2024 15:04-0500 Systolic blood pressure 151 mm[Hg] Kevin Sage MD Work Phone: [facility] 01-23-2024 10:46-0500 Body mass index (BMI) [Ratio] 30.94 kg/m2 Kevin Sage MD Work Phone: [facility] 01-23-2024 10:46-0500 Body weight 89.6 kg Kevin Sage MD Work Phone: [facility] 01-18-2024 11:21-0500 Body height 170.2 cm Kevin Sage MD Work Phone: [facility] 01-06-2024 09:04-0500 Body height 170.2 cm Zuly Bruno [employer] Work Phone: [facility] 01-06-2024 09:04-0500 Body mass index (BMI) [Ratio] 32.42 kg/m2 Zuly Kiana [employer] Work Phone: [facility] 01-06-2024 09:04-0500 Body temperature 97.81 [degF] Zuly Kiana [employer] Work Phone: [facility] 01-06-2024 09:04-0500 Body weight 93.89 kg Zuly Kiana [employer] Work Phone: [facility] 01-06-2024 09:04-0500 Diastolic blood pressure 70 mm[Hg] Zuly Kiana [employer] Work Phone: [facility] 01-06-2024 09:04-0500 Heart rate 95 /min Zuly Marissaz [employer] Work Phone: [facility] 01-06-2024 09:04-0500 Respiratory rate 17 /min Zuly Marissaz [employer] Work Phone: [facility] 01-06-2024 09:04-0500 SaO2% (BldA) [Mass fraction] 99 % Zuly Kiana [employer] Work Phone: [facility] 01-06-2024 09:04-0500 Systolic blood pressure 138 mm[Hg] Zuly Bruno [employer] Work Phone: [facility] 09-11-2023 10:31-0400 Body temperature 97.81 [degF] Steve Yeison MBBS Work Phone: [facility] 09-11-2023 10:31-0400 Diastolic blood pressure 66 mm[Hg] Steve Yeison MBBS Work Phone: [facility] 09-11-2023 10:31-0400 Heart rate 70 /min Steve Yeison MB[employer] Work Phone: [facility] 09-11-2023 10:31-0400 Respiratory rate 20 /min Steve Yeison MB[employer] Work Phone: [facility] 09-11-2023 10:31-0400 SaO2% (BldA) [Mass fraction] 91 % Steve Yeison MB[employer] Work Phone: [facility] 09-11-2023 10:31-0400 Systolic blood pressure 129 mm[Hg] Steve Yeison MBBS Work Phone: [facility] 09-10-2023 15:50-0400 Body mass index (BMI) [Ratio] 31.99 kg/m2 Steve Yeison MBBS Work Phone: [facility] 09-10-2023 15:50-0400 Body weight 92.67 kg Steve Yeison MBBS Work Phone: [facility] 09-02-2023 07:32-0400 Body height 170.2 cm Steve Yeison MBBS Work Phone: [facility] 08-28-2023 13:33-0400 Body height 170.2 cm Steve Yeison MBBS Work Phone: [facility] 08-28-2023 13:33-0400 Body mass index (BMI) [Ratio] 32.12 kg/m2 Steve Farrari MBBS Work Phone: [facility] 08-28-2023 13:33-0400 Body temperature 97.3 [degF] Steve Farrari MBBS Work Phone: [facility] 08-28-2023 13:33-0400 Body weight 93.03 kg Stevemassiel Farrari MBBS Work Phone: [facility] 08-28-2023 13:33-0400 Diastolic blood pressure 41 mm[Hg] Steve Farrari MBBS Work Phone: [facility] 08-28-2023 13:33-0400 Heart rate 116 /min Steve Farrari MBBS Work Phone: [facility] 08-28-2023 13:33-0400 Systolic blood pressure 106 mm[Hg] Steve Farrari MBBS Work Phone: [facility] 06-12-2023 14:50-0400 Body mass index (BMI) [Ratio] 33.8 kg/m2 Rebeca Gutierrez HOSPICE CARE SALES CONSULTANT-SNAP SHEARER Work Phone: [facility] 06-12-2023 14:50-0400 Body temperature 97.3 [degF] Rebeca Gutierrez HOSPICE CARE SALES CONSULTANT-SNAP SHEARER Work Phone: [facility] 06-12-2023 14:50-0400 Body weight 97.89 kg Rebeca Gutierrez HOSPICE CARE SALES CONSULTANT-SNAP SHEARER Work Phone: [facility] 06-12-2023 14:50-0400 Diastolic blood pressure 77 mm[Hg] Reebca Gutierrez HOSPICE CARE SALES CONSULTANT-SNAP SHEARER Work Phone: [facility] 06-12-2023 14:50-0400 Heart rate 76 /min Rebeca Gutierrez HOSPICE CARE SALES CONSULTANT-SNAP SHEARER Work Phone: [facility] 06-12-2023 14:50-0400 Systolic blood pressure 146 mm[Hg] Rebeca Gutierrez HOSPICE CARE SALES CONSULTANT-SNAP SHEARER Work Phone: [facility] 01-16-2023 08:57-0500 Body height 170.2 cm [facility] Work Phone: [facility] 01-16-2023 08:57-0500 Body mass index (BMI) [Ratio] 33.66 kg/m2 [facility] Work Phone: [facility] 01-16-2023 08:57-0500 Body temperature 97.3 [degF] [facility] Work Phone: [facility] 01-16-2023 08:57-0500 Body weight 97.48 kg [facility] Work Phone: [facility] 01-16-2023 08:57-0500 Diastolic blood pressure 75 mm[Hg] [facility] Work Phone: [facility] 01-16-2023 08:57-0500 Heart rate 76 /min [facility] Work Phone: [facility] 01-16-2023 08:57-0500 Systolic blood pressure 142 mm[Hg] [facility] Work Phone: [facility] 09-10-2022 09:38-0400 Body height 170.2 cm Ryan Yepez MD Work Phone: [facility] 09-10-2022 09:38-0400 Body mass index (BMI) [Ratio] 33.67 kg/m2 Ryan Yepez MD Work Phone: [facility] 09-10-2022 09:38-0400 Body weight 97.52 kg Ryan Yepez MD Work Phone: [facility] 09-10-2022 09:38-0400 Diastolic blood pressure 83 mm[Hg] Ryan Yepez MD Work Phone: [facility] 09-10-2022 09:38-0400 Heart rate 64 /min Ryan Yepez MD Work Phone: [facility] 09-10-2022 09:38-0400 SaO2% (BldA) [Mass fraction] 96 % Ryan Yepez MD Work Phone: [facility] 09-10-2022 09:38-0400 Systolic blood pressure 129 mm[Hg] Ryan Yepez MD Work Phone: [phone] [address] 07-07-2022 13:48-0400 Diastolic blood pressure 76 mm[Hg] Ryan Yepez MD Work Phone: 3(757)[phone] [address] 07-07-2022 13:48-0400 Heart rate 82 /min Ryan Yepez MD Work Phone: [facility] 07-07-2022 13:48-0400 SaO2% (BldA) [Mass fraction] 96 % Ryan Yepez MD Work Phone: [facility] 07-07-2022 13:48-0400 Systolic blood pressure 141 mm[Hg] Ryan Yepez MD Work Phone: [phone] [address] 06-27-2022 13:32-0400 Body height 170.2 cm Ryan Yepez MD Work Phone: 5([phone] [address] 06-27-2022 13:32-0400 Body mass index (BMI) [Ratio] 34.24 kg/m2 Ryan Yepez MD Work Phone: [facility] 06-27-2022 13:32-0400 Body temperature 98.6 [degF] Ryan Yepez MD Work Phone: [facility] 06-27-2022 13:32-0400 Body weight 99.16 kg Ryan Yepez MD Work Phone: [facility] 06-27-2022 13:32-0400 Diastolic blood pressure 78 mm[Hg] Ryan Yepez MD Work Phone: [facility] 06-27-2022 13:32-0400 Heart rate 77 /min Ryan Yepez MD Work Phone: [facility] 06-27-2022 13:32-0400 SaO2% (BldA) [Mass fraction] 95 % Ryan Yepez MD Work Phone: [facility] 06-27-2022 13:32-0400 Systolic blood pressure 121 mm[Hg] Ryan Yepez MD Work Phone: [facility] 06-27-2022 10:52-0400 Body height 170.2 cm Rena Brewster RN [facility] 06-27-2022 10:52-0400 Body mass index (BMI) [Ratio] 34.46 kg/m2 Rena Brewster RN [facility] 06-27-2022 10:52-0400 Body temperature 98.2 [degF] Rena Brewster RN [facility] 06-27-2022 10:52-0400 Body weight 99.79 kg Rena Brewster RN [facility] 06-27-2022 10:52-0400 Diastolic blood pressure 73 mm[Hg] Rena Brewster RN [facility] 06-27-2022 10:52-0400 Heart rate 78 /min Rena Brewster RN [facility] 06-27-2022 10:52-0400 Respiratory rate 20 /min Rena Brewster RN [facility] 06-27-2022 10:52-0400 SaO2% (BldA) [Mass fraction] 97 % Rena Brewster RN [facility] 06-27-2022 10:52-0400 Systolic blood pressure 135 mm[Hg] Rena Brewster RN [facility] 06-12-2022 14:23-0400 Body mass index (BMI) [Ratio] 34.59 kg/m2 Steve Yeison MBBS Work Phone: [facility] 06-12-2022 14:23-0400 Body temperature 97 [degF] Steve Yeison MBBS Work Phone: [facility] 06-12-2022 14:23-0400 Body weight 100.2 kg Steve Yeison MBBS Work Phone: [facility] 06-12-2022 14:23-0400 Diastolic blood pressure 66 mm[Hg] Steve Yeison MBBS Work Phone: [facility] 06-12-2022 14:23-0400 Heart rate 63 /min Steve Yeison MBBS Work Phone: [facility] 06-12-2022 14:23-0400 Systolic blood pressure 133 mm[Hg] Steve Yeison MBBS Work Phone: [facility] 05-20-2022 15:21-0400 Body temperature 97.9 [degF] Gian Villatoro MD Work Phone: [facility] 05-20-2022 15:21-0400 Diastolic blood pressure 64 mm[Hg] Gian Villatoro MD Work Phone: [facility] 05-20-2022 15:21-0400 Heart rate 55 /min Gian Villatoro MD Work Phone: [facility] 05-20-2022 15:21-0400 Respiratory rate 15 /min Gian Villatoro MD Work Phone: [facility] 05-20-2022 15:21-0400 SaO2% (BldA) [Mass fraction] 95 % Gian Villatoro MD Work Phone: [facility] 05-20-2022 15:21-0400 Systolic blood pressure 145 mm[Hg] Gian Villatoro MD Work Phone: [facility] 05-19-2022 12:15-0400 Body mass index (BMI) [Ratio] 35.87 kg/m2 Gian iVllatoro MD Work Phone: [facility] 05-19-2022 12:15-0400 Body weight 103.92 kg Gian Villatoro MD Work Phone: [phone] [place] [address] Comment on above: standing scale 05-16-2022 16:19-0400 Body height 170.2 cm Gian Villatoro MD Work Phone: [facility] 10-19-2018 08:44-0500 BMI (Body Mass Index) 26.58 kg/m2 [facility] Work Phone: 10-19-2018 08:44-0500 BP Diastolic 76 mm[Hg] [facility] Work Phone: 10-19-2018 08:44-0500 BP Systolic 144 mm[Hg] [facility] Work Phone: 10-19-2018 08:44-0500 Height 172.7 cm [facility] Work Phone: 10-19-2018 08:44-0500 Pulse (Heart Rate) 92 /min [facility] Work Phone: 10-19-2018 08:44-0500 Pulse Oximetry 99 % [facility] Work Phone: 10-19-2018 08:44-0500 Respiratory Rate 16 /min [facility] Work Phone: 10-19-2018 08:44-0500 Weight 79.29 kg Christin Nunezjyoti [facility] Work Phone: 10-12-2018 09:50-0500 BMI (Body Mass Index) 27.24 kg/m2 [facility] Work Phone: 10-12-2018 09:50-0500 Body Temperature 98.6 [degF] [facility] Work Phone: 10-12-2018 09:50-0500 BP Diastolic 80 mm[Hg] [facility] Work Phone: 10-12-2018 09:50-0500 BP Systolic 157 mm[Hg] [facility] Work Phone: 10-12-2018 09:50-0500 Height 169.5 cm [facility] Work Phone: 10-12-2018 09:50-0500 Pulse (Heart Rate) 94 /min [facility] Work Phone: 10-12-2018 09:50-0500 Weight 78.29 kg [facility] Work Phone: Encounters Encounter Date Encounter Type Care Provider Facility Start: 05-26-2024 End: 05-26-2024 ambulatory Evan Bolton RPh, PharmD Pharmacy Outpatient [facility] Start: 05-26-2024 End: 05-26-2024 Patient encounter procedure Evan Bolton RPh, PharmD Pharmacy Outpatient [facility] Start: 05-13-2024 End: 05-13-2024 ambulatory [facility] Start: 04-18-2024 End: 04-18-2024 ambulatory ZULY AICLydiaDIONIZ Not Available Start: 03-24-2024 End: 03-24-2024 Patient encounter procedure Angel Carpio [facility],PharmD Pharmacy Outpatient RX [facility] Start: 03-24-2024 End: 03-24-2024 ambulatory Angel Carpio [facility],PharmD Pharmacy Outpatient [facility] Start: 03-22-2024 End: 03-22-2024 ambulatory JOHNNA BRINK Not Available Start: 03-17-2024 End: 03-17-2024 ambulatory JOHNNA BRINK Not Available Start: 03-14-2024 End: 03-14-2024 ambulatory FIDELINA SANCHEZ Not Available Start: 03-10-2024 End: 03-10-2024 ambulatory JOHNNA BRINK Not Available Start: 03-08-2024 End: 03-08-2024 ambulatory JOHNNA BRINK Not Available Start: 03-03-2024 End: 03-03-2024 ambulatory JOHNNA BRINK Not Available Start: 03-02-2024 End: 03-02-2024 ambulatory Meka Munoz [facility] Pharmacy Outpatient [facility] Start: 03-02-2024 End: 03-02-2024 Patient encounter procedure Meka Munoz [facility] Pharmacy Outpatient [facility] Start: 03-01-2024 ambulatory ZULY KRISTOPHERHNINO Facility: [facility] Start: 03-01-2024 End: 03-01-2024 ambulatory JOHNNA BRINK Not Available Start: 02-26-2024 ambulatory ZULY KRISTOPHERLydiaNINO Facility: [facility] Start: 02-26-2024 End: 02-26-2024 Office outpatient new 30 minutes Candie Almaguer MD Work Phone: [facility] Comment on above: Heart failure, diast olic, acute (Primary Dx) Start: 02-26-2024 ambulatory ZULY AICHHOLZ Facility: [facility] Start: 02-25-2024 End: 02-25-2024 ambulatory FIDELINA SANCHEZ Not Available Start: 02-23-2024 End: 02-23-2024 ambulatory PALMA PALACIOS Not Available Start: 02-11-2024 End: 02-11-2024 ambulatory ZULY FLORESHOLZ Not Available Start: 01-16-2024 Encounter for other preprocedural examination KELVIN PACHECO [facility] Start: 01-16-2024 End: 01-23-2024 Evaluation and management of inpatient Kevin Sage MD Work Phone: [email or web address] Comment on above: Pleural effusion on right Start: 01-16-2024 End: 01-23-2024 Patient encounter status Kevin Sage MD Work Phone: [facility] Work Phone: Start: 01-12-2024 End: 01-12-2024 ambulatory Angel Fete RPh,PharmD Pharmacy Outpatient [facility] Start: 01-12-2024 End: 01-12-2024 Patient encounter procedure Angel Fete RPh,PharmD Pharmacy Outpatient [facility] Start: 01-08-2024 Clinisync Result Encounter Generic External Data Provider [facility] External Department Unsolicited Start: 01-08-2024 Clinisync Result Encounter Generic External Data Provider [facility] External Department Unsolicited Start: 01-06-2024 End: 01-06-2024 ambulatory ZULY AICHHOLZ Not Available Start: 01-06-2024 End: 01-06-2024 Office outpatient visit 25 minutes Zuly Marissaz ORGAN GRINDER Work Phone: [facility] Comment on above: [...] Not Available Start: 10-06-2023 ambulatory Angel Fete RPly[facility],PharmD Pharmacy Outpatient [facility] Start: 10-06-2023 Patient encounter procedure Angel Carpio [facility],PharmD Pharmacy Outpatient [facility] Start: 09-29-2023 ambulatory [facility] Facility: [facility] Start: 09-23-2023 ambulatory [facility] Facility: [facility] Start: 09-15-2023 ambulatory [facility] Facility: [facility] Start: 08-28-2023 End: 09-11-2023 Evaluation and management of inpatient Steve Latham MBBS Work Phone: [email or web address] Start: 08-28-2023 End: 08-28-2023 Office outpatient visit 25 minutes Steve Latham MBBS Work Phone: [facility] Comment on above: Immunosuppressed sta tus (Primary Dx); Kidney replaced by transplant; Aftercare following organ transplant; High risk medication use; Other general symptoms and signs; Abnormal blood chemistry; Hypertension secondary to other renal disorders Start: 08-28-2023 ambulatory STEVE LATHAM Facility:[facility] Start: 08-19-2023 ambulatory Meka rueda [facility] Pharmacy Outpatient [facility] Start: 08-19-2023 Patient encounter procedure Meka Munoz [facility] Pharmacy Outpatient [facility] Start: 06-12-2023 End: 06-12-2023 Office outpatient visit 25 minutes Steve Latham MBBS Work Phone: [facility] Comment on above: 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) Start: 06-12-2023 ambulatory SELF SELF Facility:[facility] Start: 06-10-2023 ambulatory Marennoah Bar RPlydia,PharmD Pharmacy Outpatient [facility] Start: 06-10-2023 Patient encounter procedure Maren Dipika Murray,PharmD Pharmacy Outpatient [facility] Start: 05-26-2023 [facility] Start: 04-28-2023 End: 04-29-[address] DOCTOR EVANS Facility: Start: 03-12-2023 ambulatory Angel Fete RPh,PharmD Pharmacy Outpatient [facility] Start: 03-12-2023 Patient encounter procedure Angel Madsene RPh,PharmD Pharmacy Outpatient [facility] Start: 03-10-2023 ambulatory Angel Carpio RPh,PharmD Pharmacy Outpatient [facility] Start: 03-10-2023 Patient encounter procedure Angel Carpio RPh,PharmD Pharmacy Outpatient [facility] Start: 03-02-2023 End: 03-03-[address] DOCTOR EVANS Facility:[facility] Start: 01-16-2023 End: 01-16-2023 Office outpatient visit 25 minutes Daisha Max DO Work Phone: [facility] [...] MD Work Phone: [facility] Comment on above: BPH with obstruction /lower urinary tract symptoms (Primary Dx); Encounter for screening for malignant neoplasm of prostate Start: 08-28-2022 End: 08-29-2022 ambulatory ROB BRUNO Facility:[facility] Start: 08-14-2022 End: 08-15-[address] DOCTOR EVANS Facility:[facility] Start: 07-07-2022 End: 07-07-2022 Patient encounter procedure Ryan Yepez MD Work Phone: [facility] Comment on above: Other hydronephrosis (Primary Dx); [...] MD Work Phone: [facility] Comment on above: Other hydronephrosis (Primary Dx) [...] LAWRENCE Facility:[facility] Start: 03-14-2022 ambulatory Comfort Rivera [facility] Work Phone: Pharmacy Outpatient RX [facility] Start: 03-14-2022 Patient encounter procedure Comfort Rivera [facility] Work Phone: Pharmacy Outpatient RX [facility] Start: 06-14-2021 End: 06-14-2021 ambulatory Comfort Rivera [facility] Work Phone: [facility] Start: 06-14-2021 Patient encounter procedure Comfort Rivera [facility] Work Phone: [facility] Start: 01-20-2020 End: 01-27-2020 Patient encounter procedure PEPE CASE Facility:[facility] Start: 01-06-2020 End: 01-07-[address] [facility] Start: 01-06-2020 End: 01-06-2020 Subsequent hospital visit by physician [facility] Start: 10-24-2019 End: 10-25-2019 Patient encounter procedure TANA Colón [facility] Start: 10-24-2019 End: 10-24-2019 Subsequent hospital visit by physician [facility] Start: 08-27-2019 End: 08-28-2019 [address] [facility] Start: 08-27-2019 End: 08-27-2019 Subsequent hospital visit by physician [facility] Start: 08-08-2019 End: 08-09-[address] [facility] Start: 08-08-2019 End: 08-08-2019 Subsequent hospital visit by physician [facility] Start: 08-03-2019 End: 08-04-[address] [facility] Start: 08-03-2019 End: 08-03-2019 Subsequent hospital visit by physician [facility] Start: 08-01-2019 End: 08-02-[address] [facility] Start: 08-01-2019 End: 08-01-2019 Subsequent hospital visit by physician [facility] Start: 06-10-2019 End: 06-11-2019 [address] [facility] Start: 06-01-2019 End: 06-02-[address] [facility] Start: 01-14-2019 End: 01-15-[address] [facility] Start: 11-17-2018 End: 11-17-2018 Patient encounter procedure Fidelina Pierson [facility] Pre Transplant Office Comment on above: Social Work Follow-u p Start: 10-19-2018 End: 10-19-2018 Patient encounter Autumn [facility] Pre Transplant [...] Start: 10-13-2018 End: 10-13-2018 Patient encounter procedure [facility] Pre [facility] Office Comment on above: Reschedule Outside Medical Allan rds Request Start: 10-12-2018 End: 10-12-2018 Patient encounter procedure Sophie Cary [facility] Pre Transplant Office Comment on above: Alcoholic cirrhosis, unspecified whether ascites present (Primary Dx); Pre-transplant evaluation for liver transplant Start: 10-12-2018 End: 10-12-2018 Office outpatient new 60 minutes Alfredito Restrepo Work Phone: [facility] Pre Transplant Office Comment on above: Alcoholic cirrhosis, unspecified whether ascites present; ESRD (end stage renal disease) on dialysis; Pre-transplant evaluation for liver transplant Start: 10-06-2018 End: 10-06-2018 Patient encounter procedure Yovani Orr Work Phone: Department of Radiology Comment on above: Canceled (Insurance Company Redirected Pt) Start: 10-05-2018 Patient encounter status Comfort Rivera [facility] Work Phone: [facility] Procedures Date Procedure Procedure Detail Performing Clinician [...] [facility] (DEFAULT)[address] [place] [address] Start: 01-22-2024 Assay of magnesium Just in [...] Start: 01-20-2024 ITRACONAZOLE LEVEL Jennifer norbert Caldwellowan [facility] Work Phone: Start: 01-20-2024 Oscillating positive expiratory pressure (flutter) physiotherapy Arelis Mera MD Work Phone: Start: 01-19-2024 Duplex scan hemodial ysis access Arelis Mera MD Work Phone: Start: 01-19-2024 Oscillating positive expiratory pressure (flutter) physiotherapy Arelis Mera MD Work Phone: Start: 01-19-2024 Assay of magnesium Just in Jake ULZ Work Phone: Start: 01-19-2024 Drug screen quantita tive tacrolimus Arelis Mera MD Work Phone: Start: 01-19-2024 Iadna nos quantifica tion each organism Fidelina Ortiz [facility] Work Phone: Start: 01-18-2024 Echocardiography ZULY [...] Timothy Joseph MD Work Phone: Start: 01-16-2024 DARLY AURIS SCREEN BY PCR Carol Ann Capps HOSPICE CARE SALES CONSULTANT-SIPHON OPERATOR Work Phone: Start: 01-08-2024 ALL CBC [...] Phone: Start: 09-08-2023 Assay of magnesium Milton Kelyl MD Work Phone: Start: 09-08-2023 Hepatic function [...] Evan Kelly MD Work Phone: Start: 09-02-2023 [facility] dx w/cell washg [...] SCREEN BY PCR Carol Ann Rod Jefry HOSPICE CARE SALES CONSULTANT-SIPHON OPERATOR Work Phone: Start: 08-28-2023 CBC AND [...] above: Performed By: #### C MP #### [facility] [address] [place] [address] Dr. Dwight Waters Start: 07-07-2022 Rmvl nfros [...] 06-12-2022 Hemoglobin glycosylated a1c Steve S Yeison [facility] Work Phone: Start: 06-12-2022 Hepatic function panel Yovani Orr MD Work Phone: Start: 06-12-2022 URINALYSIS REFLEX TO CULTURE Steve Latham [facility] Work Phone: Start: 05-20-2022 Urography antegrade rs&i [...] blood Nishant Gamez MD Work Phone: Start: 06-17-2022 Assay of magnesium Milton Bennett MD Work [...] recipient S/P liver trans plant Comfort Rivera [facility] Work Phone: Start: 04-08-2020 H/O: liver recipient Liver tra nsplant recipient Comfort Rivera [facility] Work Phone: Start: 01-06-2020 Potassium serum [...] De ceased-donor kidney transplant recipient Comfort Rivera [facility] Work Phone: Start: 06-10-2019 HEMOGLOBIN AND HEMAT OCRIT, BLOOD ROB KASMANI Start: 06-01-2019 Blood count hemoglobin ROB KASMANI Start: 04-23-2019 Lipid 1996 panel - S fabricio or Plasma Comfort Rivera [facility] Work Phone: Start: 01-14-2019 Potassium serum [...] 10-12-2018 End: 10-12-2018 Assay of parathormone [employer]ani [employer] Work Phone: Start: 10-12-2018 End: 10-12-2018 Assay of phosphatase alkaline [employer] [employer] Work Phone: Start: 10-12-2018 End: 10-12-2018 Bilirubin total Yovani Orr Work Phone: Start: 10-12-2018 End: 10-12-2018 Calcium total Yovani Mejias [email or web address] Work Phone: Start: 10-12-2018 End: 10-12-2018 CBC, EDIF, PLATELET Yovani Mejias [email or web address] Work Phone: Start: 10-12-2018 End: 10-12-2018 Creatinine blood Yovani Orr Work Phone: Start: 10-12-2018 End: 10-12-2018 Drug screening cannabinoids natural [employer] [employer] Work Phone: Start: 10-12-2018 End: 10-12-2018 Hepatitis a antibody haab Yovani Orr Work Phone: Start: 10-12-2018 End: 10-12-2018 Hepatitis b core antibody hbcab total Yovani Orr Work Phone: Start: 10-12-2018 End: 10-12-2018 Hepatitis b surf antibody hbsab Yovani Mejias [email or web address] Work Phone: Start: 10-12-2018 End: 10-12-2018 Hepatitis c antibody Yovani Mejias [email or web address] Work Phone: Start: 10-12-2018 End: 10-12-2018 Iaad ia hepatitis b surface antigen [employer]ani [employer] Work Phone: Start: 10-12-2018 End: 10-12-2018 Iaad ia hiv-1 ag w/hiv-1 & hiv-2 antbdy single [facility]ani [employer] Work Phone: Start: 10-12-2018 End: 10-12-2018 PSA screening Yovani Orr Work Phone: Start: 10-12-2018 End: 10-12-2018 Thromboplastin time partial plasma/whole blood Yovani Orr Work Phone: Start: 10-12-2018 End: 10-12-2018 Assay of ethanol Yovnai Orr Work Phone: Start: 10-12-2018 End: [...] 09-20-2029 Screening for malignant neoplasm of colon [facility] Start: 05-23-2025 Potassium [Moles/volume] in Serum or Plasma POTASSIUM [facility] Start: 03-28-2025 Potassium [Moles/volume] in Serum or Plasma POTASSIUM [facility] Start: 03-21-2025 Potassium [Moles/volume] in Serum or Plasma POTASSIUM [facility] Start: 02-28-2025 Potassium [Moles/volume] in Serum or Plasma POTASSIUM [facility] Start: 01-23-2025 Potassium [Moles/volume] in Serum or Plasma POTASSIUM [facility] Start: 08-31-2024 Screening for malignant neoplasm of lung [facility] Start: 07-31-2024 Influenza vaccination INFLUENZA VACCINE (#1) [facility] Start: 06-17-2024 End: 06-17-2024 ambulatory [facility] Start: 06-17-2024 End: 06-17-2024 Patient encounter procedure [facility] Start: 03-22-2024 Fasting lipid profile LIPID SCREENING [facility] Start: 03-22-2024 Lipid panel [facility] Start: 02-26-2024 End: 02-26-2024 Patient encounter procedure 02/26/2024 9:30 AM EDT Office Visit [facility] [address] [place] [phone] Candie Almaguer MD [address] [place] [phone] [employer] [facility] Start: 02-11-2024 End: 02-11-2024 Patient encounter procedure 02/11/2024 10:30 AM EDT Office Visit [facility] [address] [place] [phone] Zuly Bruno NP [address] [place] [phone] [facility] Start: 02-09-2024 End: 02-09-2024 Telemedicine consultation with patient 02/09/2024 3:30 PM EDT Telemedicine Infectious Diseases Care [facility] [address] [place] [address] Hakeem Alamo MD [address] [place] [address] [facility] Start: 01-15-2024 End: 01-15-2024 ambulatory [facility] Start: 01-15-2024 End: 01-15-2024 Patient encounter procedure [facility] Start: 01-06-2024 End: 01-06-2026 Echocardiogram 2D complete Echocardiogram 2D complete Echocardiography Routine DARLENE (obstructive sleep apnea) Primary hypertension (CMS/HCC) Bilateral lower extremity edema Shortness of breath Expected: 01/06/2024 (Approximate), Expires: 01/06/2026 [facility] Work Phone: Comment on above: Expected: 01/06/2024 (Approximate), Expi res: 01/06/2026 Start: 01-06-2024 End: 01-06-2024 Patient encounter procedure 01/06/2024 9:00 AM EST Office [facility] [address] [place] [phone] Zuly Bruno, BA [address] [place] [phone] [facility] Start: 12-08-2023 End: 09-07-2024 CT Chest WO contrast [facility] Work Phone: Start: 12-01-2023 COVID-19 VACCINE (2 - Moderna risk series) COVID-19 VACCINE (2 - Moderna risk series) [facility] Start: 09-23-2023 End: 09-23-[address] [facility] Start: 09-23-2023 End: 09-23-2023 Telemedicine consultation with patient 09/23/2023 4:00 PM EDT Telemedicine Infectious Diseases Care [facility] [address] [place] [address] Hakeem Alamo MD [address] [place] [address] [facility] Start: 09-15-2023 End: 09-10-2024 ITRACONAZOLE LEVEL [facility] Start: 08-25-2023 End: 08-25-2024 ALLOSCREEN RECIPIENT (POST TX PRA) ALLOSCREEN RECIPIENT (POST TX PRA) Lab Routine Kidney replaced by transplant Aftercare following organ transplant Immunosuppressed status High risk medication use Other general symptoms and signs Abnormal blood chemistry Expected: 08/25/2023, Expires: 08/25/2024 [facility] Comment on above: Expected: 08/25/2023, Expires: Start: 07-31-2023 Influenza vaccination [facility] Start: 06-12-2023 End: 06-12-2023 Patient encounter procedure 06/12/2023 Office Visit Transplant Surgery Steve Latham MBBS [address] [place] [phone] [facility] Start: 03-11-2023 End: 03-11-2023 Telemedicine consultation with patient 03/11/2023 Telemedicine Urology Ryan Yepez MD [address] [facility] [address] [place] [address] [facility] [place] Start: 01-16-2023 End: 01-16-2023 Patient encounter procedure 01/16/2023 Office Visit Transplant Surgery [facility] Start: 10-31-2022 End: 10-31-2022 Patient encounter procedure 10/31/2022 Office Visit Transplant Surgery Steve Latham MBBS [address] [place] [phone] [facility] Start: 09-10-2022 End: 09-10-2023 PSA screening PSA, SCREENING Lab Routine BPH with obstruction/lower urinary tract symptoms Encounter for screening for malignant neoplasm of prostate Expected: 09/10/2022 (Approximate), Expires: 09/10/2023 [facility] Comment on above: Expected: 09/10/2022 (Approximate), Expi res: 09/10/2023 Start: 08-11-2022 End: 08-11-2022 Patient encounter procedure 08/11/2022 Office Visit Urology Ryan Yepez MD [address] [facility] [address] [place] [address] [facility]rolog [facility] [place] Start: 07-31-2022 Influenza vaccination [facility] Start: 07-07-2022 End: 07-07-2022 Patient encounter procedure 07/07/2022 Office Visit UrologRyan Batista MD [address] [facility] [address] [place] [address] [facility] [place] Start: 07-07-2022 End: 07-07-2023 FLUORO IMAGING FOR UROLOGY [facility] Comment on above: Expected: 07/07/2022, Expires: 3 1 Occurrences starti ng 07/07/2022 until 07/07/2022 Start: 06-27-2022 End: 06-27-2022 Patient encounter procedure 06/27/2022 Office Visit UrologRyan Batista MD [address] [facility] [address] [place] [address] [facility] [place] Start: 06-27-2022 End: 06-27-2023 Basic metabolic 2000 panel - Serum or Plasma BASIC METABOLIC PANEL Lab Routine Other hydronephrosis Expected: 06/27/2022, Expires: 06/27/2023 [facility] Comment on above: Expected: 06/27/2022, Expires: 3 Start: 06-27-2022 End: 06-27-2022 Patient encounter procedure 06/27/2022 Appointment Computerized Tomography Scan Ryan Yepez MD [address] [facility] [address] [place] [address] Department of Radiology Start: 06-15-2022 End: 05-16-2023 CT Abdomen and Pelvis WO contrast CT ABDOMEN/PELVIS WITHOUT CONTRAST Imaging Routine FAYE (acute kidney injury) Expected: 06/15/2022 (Approximate), Expires: 05/16/2023 [facility] Work Phone: Comment on above: Expected: 06/15/2022 (Approximate), Expi res: 05/16/2023 Start: 06-12-2022 End: 06-12-2022 Patient encounter procedure 06/12/2022 Office Visit Transplant Surgery Steve Latham MBBS [address] [place] [address] [facility] Start: 06-11-2022 End: 06-11-2023 BK VIRUS DNA QN, PCR, PLASMA BK VIRUS DNA QN, PCR, PLASMA Lab Routine Kidney replaced by transplant Liver replaced by transplant Abnormal blood chemistry Expected: 06/11/2022, Expires: 06/11/2023 [facility] Comment on above: Expected: 06/11/2022, Expires: 3 Start: 06-04-2022 End: 06-04-2022 Patient encounter procedure 06/04/2022 Office Visit [facility]iology [facility] Start: 10-18-2021 End: 10-18-2021 Patient encounter procedure 10/18/2021 Office Visit Transplant Surgery Steve Latham MBBS [address] [place] [address] [facility] Start: 07-31-2021 Influenza vaccination INFLUENZA VACCINE (#1) [facility] Start: 07-26-2021 End: 07-26-2021 Patient encounter procedure 07/26/2021 Office Visit Transplant Surgery [facility] Start: 2021 Prostate specific antigen measurement [facility] Start: 2021 Screening for malignant neoplasm of lung LUNG CANCER SCREENING [facility] Start: 2021 Zoster vaccine hzv live for subcutaneous use ZOSTER (SHINGLES) VACCINE (1 of 2) [facility] Start: 09-20-2020 Colonoscopy COLORECTAL CANCER SCREENING DISCUSSION [facility] Start: 09-20-2020 Screening for malignant neoplasm of colon [facility] Start: 07-31-2019 Influenza vaccination Flu vaccine (#1) [place], [place] Start: 05-22-2019 Annual Wellness Visit (AWV) Annual Wellness Visit (AWV) [place] Start: 04-18-2019 End: 10-19-2019 Ultrasonography of abdomen US ABDOMEN RUQ/LIVER/GB Routine Cirrhosis of liver without ascites, unspecified hepatic cirrhosis type Expected: 04/18/2019 (Approximate), Expires: 10/19/[address] [facility] Work Phone: Comment on above: Expected: 04/18/2019 (Approximate), Expi res: 10/19/2019 Start: 01-25-2019 End: 01-25-2019 Ambulatory 01/25/2019 Office Visit Gastroenterology Christin Elizabeth, HOSPICE CARE SALES CONSULTANT-SNAP SHEARER [address] [place] [address] Division of Gastroenterology and Hepatology Gavin Start: 11-19-2018 End: 11-19-2018 Ambulatory 11/19/2018 Appointment [facility] Start: 11-19-2018 End: 11-19-2018 [facility]ulatory [facility] Start: 10-19-2018 End: 10-19-2018 Ambulatory Ultrasound Jakob Start: 10-12-2018 End: 10-12-2019 Hemoglobin A1c/Hemoglobin.total mass fraction (Bld) HEMOGLOBIN A1C Routine Alcoholic cirrhosis, unspecified whether ascites present Pre-transplant evaluation for liver transplant Expected: 10/12/2018, Expires: 10/12/2019 [facility] Work Phone: Comment on above: Expected: 10/12/2018, Expires: 9 Start: 10-12-2018 End: 10-12-2019 TYPE AND SCREEN - NOT FOR TRANSFUSION TYPE AND SCREEN - NOT FOR TRANSFUSION Routine Alcoholic cirrhosis, unspecified whether ascites present Pre-transplant evaluation for liver transplant Expected: 10/12/2018, Expires: 10/12/2019 [facility] Work Phone: Comment on above: Expected: 10/12/2018, Expires: 9 Start: 07-31-2018 Influenza vaccination INFLUENZA VACCINE (#1) [facility] Work Phone: Start: 2011 Fasting lipid profile LIPID SCREENING [facility] Work Phone: Start: 2011 Lipid screen Lipid screen [place], [place] Start: 1990 DTaP/Tdap/Td vaccine (1 - Tdap) DTaP/Tdap/Td vaccine (1 - Tdap) [place] Start: 1990 Hepatitis B vaccination HEP B VACCINE (1 of 3 - 19+ 3-dose series) [facility] Start: 1990 Hepatitis B Vaccine (1 of 3 - Risk Recombivax 3-dose series) Hepatitis B Vaccine (1 of 3 - Risk Recombivax 3-dose series) [place] Start: 1990 Third diphtheria, tetanus and acellular pertussis (DTaP) vaccination [facility] Start: 1990 Zoster vaccine hzv live for subcutaneous use ZOSTER (SHINGLES) VACCINE (1 of 2) [facility] Start: 1990 [facility] Start: 1989 Tetanus vaccination TETANUS [facility] Start: 1986 HIV screen HIV screen [place], [place] Start: 02-17-1984 HIV screening HIV SCREENING DISCUSSION [facility] Work Phone: Start: 1983 COVID-19 VACCINE (1) COVID-19 VACCINE (1) [facility] Start: 1982 DTaP/Tdap/Td vaccine (1 - Tdap) DTaP/Tdap/Td vaccine (1 - Tdap) [place] Start: 1977 Pneumococcal 0-64 years Vaccine (1 of 3 - PCV13) Pneumococcal 0-64 years Vaccine (1 of 3 - PCV13) [place] Start: 1977 PNEUMOCOCCAL VACCINE SERIES (1 - PCV) PNEUMOCOCCAL VACCINE SERIES (1 - PCV) [facility] Start: 1977 PNEUMOCOCCAL VACCINE SERIES (1 of 2 - PCV) PNEUMOCOCCAL VACCINE SERIES (1 of 2 - PCV) [facility] Start: 1977 [facility] Start: 02-17-1976 COVID-19 VACCINE (#1) COVID-19 VACCINE (#1) [facility] Start: 02-17-1976 [facility] Start: 1971 COVID-19 VACCINE (#1) COVID-19 VACCINE (#1) [facility] Start: 1971 Hepatitis B vaccination HEP B VACCINE (1 of 3 - 3-dose series) [facility] Start: 1971 Medicare Annual Wellness (AWV) Medicare Annual Wellness (AWV) [facility] Start: 1971 Screening for malignant neoplasm of colon [facility] Start: 1971 Tetanus vaccination [facility] BK VIRUS DNA QN, PCR , PLASMA BK VIRUS DNA QN, PCR, PLASMA Lab Routine Kidney replaced by transplant Liver replaced by transplant Abnormal blood chemistry 06/12/2022 3:38 PM EDT [facility] CALCULI, URINARY (KIDNEY STONE) CALCULI, URINARY (KIDNEY STONE) Fluids Routine 05/19/2022 8:16 AM EDT [facility] Work Phone: CANNABINOIDS, QUANT (URINE)THC CONFIRMATION CANNABINOIDS, QUANT (URINE)THC CONFIRMATION Routine Alcoholic cirrhosis, unspecified whether ascites present ESRD (end stage renal disease) on dialysis Pre-transplant evaluation for liver transplant 10/12/2018 12:57 PM [facility] Work Phone: End: 09-10-2024 CHEM 6 (LYTES, BUN CREA) [facility] EBV VCA IGG AB EBV VCA IGG AB R outine Alcoholic cirrhosis, unspecified whether ascites present ESRD (end stage renal disease) on dialysis Pre-transplant evaluation for liver transplant 10/12/2018 12:57 PM [facility] Work Phone: Fungus identified in Unspecified specimen by Culture [facility] HLA TYPING (SOLID ORGAN) HLA TYPING (SOLID ORGAN) Routine Alcoholic cirrhosis, unspecified whether ascites present ESRD (end stage renal disease) on dialysis Pre-transplant evaluation for liver transplant 10/12/2018 12:57 PM [facility] Work Phone: HSV 1 AND 2 IGG ANTIBODY HSV 1 AND 2 IGG ANTIBODY Routine Alcoholic cirrhosis, unspecified whether ascites present ESRD (end stage renal disease) on dialysis Pre-transplant evaluation for liver transplant 10/12/2018 12:57 PM [facility] Work Phone: 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 specific culture [facility] PLACEMENT NEPHROSTOM Y CATHETER PERCUTANEOUS W/ IMAGE GUIDANCE PLACEMENT NEPHROSTOMY CATHETER PERCUTANEOUS W/ IMAGE GUIDANCE Imaging Routine Hydronephrosis due to obstruction of ureteral orifice FAYE (acute kidney injury) 05/17/2022 11:08 AM EDT [facility] DC POST VOID RESIDUAL DC POST VO ID RESIDUAL DC - OFFICE PERFORMED Routine BPH with obstruction/lower urinary tract symptoms Ordered: 09/10/2022 [facility] Comment on above: Ordered: 09/10/2022 PTH INTACT PTH INTACT Routi ne Alcoholic cirrhosis, unspecified whether ascites present ESRD (end stage renal disease) on dialysis Pre-transplant evaluation for liver transplant 10/12/2018 12:57 PM [facility] Work Phone: RUBEOLA IGG AB (IMMU NE STATUS) RUBEOLA IGG AB (IMMUNE STATUS) Routine Alcoholic cirrhosis, unspecified whether ascites present ESRD (end stage renal disease) on dialysis Pre-transplant evaluation for liver transplant 10/12/2018 12:57 PM [facility] Work Phone: End: 01-16-2024 Standard ECG ECG ECG Routine One Time for 1 Occurrences starting 01/16/2024 until 01/16/2024 [facility] Comment on above: One Time for 1 Occurrences starting 12/31 until 01/16/2024 End: 09-10-2024 TACROLIMUS LEVEL, TROUGH (PRE DRUG LEVEL) [facility] VARICELLA IGG AB (IM M STATUS) VARICELLA IGG AB (IMM STATUS) Routine Alcoholic cirrhosis, unspecified whether ascites present ESRD (end stage renal disease) on dialysis Pre-transplant evaluation for liver transplant 10/12/2018 12:57 PM [facility] Work Phone: Immunizations Immunization Date Immunization Notes Care Provider Fa jimmyty 11-03-2023 influenza virus vacc ine, unspecified formulation Generic Provider [facility] 11-03-2023 Moderna SARS-CoV-2 50mcg/0.5mL Booster Generic Provider [facility] Payers Date Payer Category Payer Unknown [id number] 2019 Unknown [facility] [id number] 2019-Present [id number] 2018 [facility] [place]ID [place] [facility] DEPT OF JOB xxxxxxxxxxxx 2018-Present [phone] [address] [place] [address] xxxxxxxxxxxx [id number] [id number] 2018 Medicaid MEDICAID MEDICAI D [id number] 2018-Present [address] [place] [address] [id number] .[id number] 2018 Medicaid [id number] [id number] .[id number] 2018 Medicare MEDICARE MEDICAR E PART A AND B xxxxxxxxxxx 2018-Present [phone] [place] [address] xxxxxxxxxxx [id number] .[id number] 2018 Medicare [id number] 2018 Medicare MEDICARE MEDICAR E A AND B [id number] 2018-Present [address] [place] [address] [id number] 1.2.840.299497.1.13.172.2.7.3 .[id number] 2018 Medicare [id number]. 1.13.172.2.7.3 .162389.315 1971 Unknown [id number] 2.16.840.1.701751.3.579.2.173 1971 Unknown [id number] 2.16.840.1.856383.3.579.2.173 1971 Unknown [id number] 2.16.840.1.196881.3.579.2.173 1971 Unknown [id number] 2.16.840.1.952110.3.579.2.173 1971 Unknown [id number] 2.16.840.1.923470.3.579.2.173 1971 Unknown [id number] 2.16.840.1.065774.3.579.2.173 1971 Unknown [id number] 2.16.840.1.303978.3.579.2.173 1971 Unknown [id number] 2.16.840.1.683997.3.579.2.173 1971 Unknown [id number] 2.16.840.1.952046.3.579.2.647 1971 Unknown [id number] 2.16.840.1.866874.3.579.2.593 1971 Unknown [id number] 2.16.840.1.524488.3.579.2.593 1971 Unknown [id number] 2.16.840.1.721147.3.579.2.593 1971 Unknown [id number] 2.16.840.1.448066.3.579.2.593 1971 Unknown [id number] 2.16.840.1.016146.3.579.2.593 1971 Unknown [id number] 2.16.840.1.649222.3.579.2.593 1971 Unknown [id number] 2.16.840.1.402974.3.579.2.593 1971 Unknown [id number] 2.16.840.1.946839.3.579.2.593 1971 Unknown [id number] 2.16.840.1.043887.3.579.2.593 1971 Unknown [id number] 2.16.840.1.166944.3.579.2.593 1971 Unknown [id number] 2.16.840.1.332874.3.579.2.593 1971 Unknown [id number] 2.16.840.1.849195.3.579.2.593 1971 Unknown [id number] 2.16.840.1.544457.3.579.2.593 1971 Unknown [id number] 2.16.840.1.203779.3.579.2.593 1971 Unknown [id number] 2.16.840.1.589152.3.579.2.593 1971 Unknown [id number] 2.16.840.1.749105.3.579.2.125 9 1971 Unknown [id number] 2.16.840.1.305849.3.579.2.125 9 1971 Unknown [id number] 2.16.840.1.857295.3.579.2.125 9 1971 Unknown [id number] 2.16.840.1.592688.3.579.2.125 9 1971 Unknown [id number] 2.16.840.1.072247.3.579.2.125 9 1971 Unknown [id number] 2.16.840.1.393662.3.579.2.125 9 1971 Unknown [id number] 2.16.840.1.961514.3.579.2.125 9 1971 Unknown [id number] 2.16.840.1.821197.3.579.2.125 9 1971 Unknown [id number] 2.16.840.1.517842.3.579.2.125 9 1971 Unknown [id number] 2.16.840.1.337640.3.579.2.125 9 1971 Unknown [id number] 2.16.840.1.688808.3.579.2.125 9 1971 Unknown [id number] 2.16.840.1.945646.3.579.2.125 9 1971 Unknown [id number] 2.16.840.1.718316.3.579.2.125 9 1971 Unknown [id number] 2.16.840.1.430331.3.579.2.125 9 1971 Unknown [id number] 2.16.840.1.717855.3.579.2.594 1971 Unknown [id number] 2.16.840.1.821140.3.579.2.594 1971 Unknown [id number] 2.16.840.1.124412.3.579.2.594 1971 Unknown [id number] 2.16.840.1.083278.3.579.2.594 1971 Unknown [id number] 2.16.840.1.700446.3.579.2.594 1971 Unknown [id number] 2.16.840.1.936712.3.579.2.594 1971 Unknown [id number] 2.16.840.1.873761.3.579.2.594 1971 Unknown [id number] 2.16.840.1.129072.3.579.2.594 1971 Unknown [id number] 2.16840.1.062354.3.579.2.594 1971 Unknown [id number] 2.16.840.1.280154.3.579.2.594 1971 Unknown [id number] 2.16840.1.960840.3.579.2.594 1971 Unknown [id number] 2.16.840.1.758239.3.579.2.594 1959 Medicaid [id number] 1959 Medicare [id number] Social History Date Type Detail Facility Start: 07-19-2018 End: 10-19-2018 Tobacco smoking status NHIS Former smoker [facility] Start: 07-19-1988 End: 05-14-2018 History of tobacco use Current smoker [facility] Work Phone: Start: 07-19-1988 End: 05-14-2018 History of tobacco use Cigarette Smoker [facility] Work Phone: Start: 10-19-2018 End: 03-24-2024 Cigarettes smoked current (pack per day) - Reported [facility] End: 07-19-1994 History of tobacco use Chews Tobacco [facility] Work Phone: Start: 1970 Sex Assigned At Not on file [facility] Work Phone: Start: 11-03-2018 Alcohol intake Current non-drinker of alcohol (finding) [place] Start: 06-22-2018 Alcohol Comment Hx of alcoholism [place] Start: 11-03-2018 End: 03-24-2024 Alcohol intake No [facility] Start: 07-19-2018 Tobacco use and exposure Former user [facility] Start: 09-06-2020 End: 03-24-2024 Alcohol intake Ex-drinker (finding) [facility] Start: 07-19-2018 Alcohol Comment stopped 05/14/2018 [facility] Start: 05-05-2022 End: 01-16-2023 Exposure to SARS-CoV-2 (event) Not sure [facility] Start: 07-07-2018 Gender identity Identifies as male gender (finding) [facility] Start: 01-16-2022 Sexual orientation Heterosexual (finding) [facility] Start: 11-03-2023 Tobacco use and exposure [...] Dates [id number] Start: 05-23-2020 [id number] Start: 04-12-2020 [id number] [facility] Start: 05-17-2022 Comment on above: Description: Implant time-out completed by intra-procedural staff including this RN, cytotechnologist supervisor, and performing physician. The following was completed. RN reads out loud implant type/size/ expiration date, and verbalizes location. Holds package up to tech to visually verify implant details. Tech reads back package details MD verifies verbally correct implant Time-out was completed for each coil during embolization, if applicable. Goals Date Patient Goal Desired Activity /State Personal health goal Clinical Notes 06-14-2021 to 05-26-2024 Destiny Jensen - 05/26/2024 4:33 PM EDTRosalchaya Aissatou - 05/26/2024 4:33 PM EDTRosalia Aissatou - 03/24/2024 4:12 PM EDTTemil Edwards - 03/24/2024 4:12 PM EDTGabbi Rajput - 03/24/2024 4:12 PM EDT Note Date & Type Note Facility 05-26-2024 History of Present illness Narrative [facility]: Call Information: Date and Time of Contact: 05/26/2024 4:35 PM Method of Contact: By Phone Contact Type: Prescriptions Contactor: [facility] Contactee: Patient Contact Outcome: Left message and Follow-up Contact Info: Specialty (Derry) [phone] [facility] [phone] [facility] [phone] David [phone] Bedside Delivery ([facility]) [phone] [facility]: Call Information: Date and Time of Contact: 05/30/2024 4:52 PM Method of Contact: By Phone Contact Type: Prescriptions Contactor: Patient Contactee: [facility] Shipping/Pickup: Medicare B Refill?: No Medication Name: Myco sod 360mg, Prograf 0.2mg Delivery Method: Ship Delivery Location: Home Signature Required: No Receive/Pickup Date: 06/06/2024 Shipping Address: [address] [place] [address] Contact Info: Specialty (Derry) [phone] Jakob [phone] [facility] [phone] David [phone] Bedside Delivery ([facility]) [phone] documented in this encounter [facility] 05-13-2024 Note [place] [facility] - [facility] Subjective George Styles is a [...] , Rfl: t (more content not included)... [facility] 03-24-2024 History of Present illness Narrative [facility]: Call Information: Date and Time of Contact: 03/24/2024 4:14 PM Method of Contact: By Phone Contact Type: Prescriptions Contactor: [facility] Contactee: Patient Contact Outcome: Left message Shipping/Pickup: Medication Name: Prograf 0.2mg pack Contact Info: Specialty (Derry) [phone] [facility] [phone] [facility] [phone] David [phone] Bedside Delivery ([facility]) [phone] [facility]: Call Information: Date and Time of Contact: 03/28/2024 3:58 PM Method of Contact: By Phone Contact Type: Prescriptions Contactor: [facility] Contactee: Patient Contact Outcome: Left message and Call back later Shipping/Pickup: Medication Name: Mycophenolate, prograf Contact Info: Specialty (Derry) [phone] [facility] [phone] [facility] [phone] David [phone] Bedside Delivery ([facility]) [phone] [facility]: Call Information: Method of Contact: By Phone Contact Type: Prescriptions Contactor: Patient Contactee: [facility] Shipping/Pickup: Medicare B Refill?: No Medication Name: Mycopheolate 360mg and Prograf Delivery Method: Ship Delivery Location: Home Signature Required: No Receive/Pickup Date: 04/04/2024 Shipping Address: [address] [place] [address] [address] Contact Info: Specialty (Yanci) [phone] Jakob [phone] [facility] [phone] David [phone] Bed[facility] ([facility] [facility]) [phone] documented in this encounter [facility] 03-24-2024 History of Present illness Narrative [facility] RX OUTREACH ADVANCED: Call Information: Date and Time of Contact: 03/24/2024 4:14 PM Method of Contact: By Phone Contact Type: Prescriptions Contactor: [facility] Contactee: Patient Contact Outcome: Left message Shipping/Pickup: Medication Name: Prograf 0.2mg pack Contact Info: Specialty (Derry) [phone] Jakob [phone] [facility] [phone] David [phone] Bedside Delivery ([facility]) [phone] [facility] RX OUTREACH ADVANCED: Call Information: Date and Time of Contact: 03/28/2024 3:58 PM Method of Contact: By Phone Contact Type: Prescriptions Contactor: [facility] Contactee: Patient Contact Outcome: Left message and Call back later Shipping/Pickup: Medication Name: Mycophenolate, prograf Contact Info: Specialty (Yanci) [phone] [facility] [phone] [facility] [phone] David [phone] Bedside Delivery ([facility]) [phone] [facility] RX OUTREACH ADVANCED: Call Information: Method of Contact: By Phone Contact Type: Prescriptions Contactor: Patient Contactee: [facility] OP Shipping/Pickup: Medicare B Refill?: No Medication Name: Mycopheolate 360mg and Prograf Delivery Method: Ship Delivery Location: Home Signature Required: No Receive/Pickup Date: 04/04/2024 Shipping Address: [address] [place] [address] [address] Contact Info: Specialty (Yanci) [phone] [facility] [phone] [facility] [phone] David [phone] Bedside Delivery ([facility]) [phone] [facility] RX OUTREACH ADVANCED: Pre-Verification/Specialty Assessment/Disease [...] Review: Within normal limits Contact Info: Specialty (Derry) [phone] [facility] [phone] [facility] [phone] David [phone] Bedside Delivery ([facility]) [phone] documented [facility] [...] up del of broth Contact Info: Specialty (Derry) [phone] [facility] [phone] [facility] [phone] David [phone] Bedside Delivery ([facility]) [phone] [facility] RX OUTREACH ADVANCED: Call Information: Date and Time of Contact: 03/02/2024 3:49 PM Method of Contact: By Phone Contact Type: Prescriptions Contactor: [facility] Contactee: Patient Contact Outcome: Left message and Follow-up Shipping/Pickup: Medication Name: Myco 360mg and Prograf 0.2mg Contact Info: Specialty (Derry) [phone] [facility] [phone] [facility] [phone] David [phone] Bedside Delivery ([facility]) [phone] [facility] RX OUTREACH ADVANCED: Call Information: Date and Time of Contact: 03/02/2024 4:08 PM Method of Contact: By Phone Contact Type: Prescriptions Contactor: [facility] Contactee: Patient Shipping/Pickup: Medicare B Refill?: No Medication Name: Myco 360 / prograf 0.2 Delivery Method: Ship Delivery Location: Home Signature Required: No Receive/Pickup Date: 03/03/2024 Shipping Address: [address] [place] [address] [address] Contact Info: Specialty (Derry) [phone] [facility] [phone] [facility] [phone] David [phone] Bedside Delivery ([facility]) [phone] documented in this encounter [facility] 02-26-2024 History of Present illness Narrative Patient [...] presents to the HF Clinic at the [facility] on 02/26/2024 for initial evaluation of [...] Left; Surgeon: Jyoti Bryant MD, PhD; Location: [facility] MAIN OR PLACEMENT NEPHROSTOMY CATHETER PERCUTANEOUS W/ IMAGE GUIDANCE 05/17/2022 Surgeon: Enzo Heart DO; Location: [facility] INTERVENTIONAL RADIOLOGY (VIR) LIVER TRANSPLANT, ORTHOTOPIC N/A 04/12/2020 Laterality: N/A; Surgeon: LU Palma; Location: [facility] SAME DAY SURGERY MAIN OR KIDNEY TRANSPLANT W/O OHOGAMIUT NEPHRECTOMY N/A 04/12/2020 Laterality: N/A; Surgeon: LU Palma; Location: [facility] SAME DAY SURGERY MAIN OR OTHER SURGICAL [...] qd Antithrombotic: no Statin: no ICD: NA BONDACTOR MACHINE OPERATOR: NA CV Test results: ECHOCARDIOGRAM 01/18/2024 (Final) Interpretation Summary Left Ventricle: Chamber size is normal. Increased wall thickness. Concentric hypertrophy. Normal global systolic function. Regional wall motion is normal. Ejection fraction is normal (55 - 60%). Right Ventricle: Chamber size is normal. Systolic function is low normal. No hemodynamically significnat valve disease. Moderate pericardial effusion. There is no evidence of tamponade. [facility] (01/20/24) Hemodynamic Summary: Baseline Hemodynamics Systemic BP [...] will be BP control. Candie Almaguer M.D. veneer patcher Advanced Heart Failure Program Division of Cardiovascular Medicine [facility] [email or web address] ph [phone] fax [phone] documented in this encounter [facility] 02-26-2024 Instructions Marsha Mckeon RN - 02/26/2024 9:30 AM EDT The following instructions were given today: Labs today Follow up with Dr. Almaguer as needed. Your after visit summary (AVS) is viewable in [facility] My Chart. Call RN if you have cardiac questions/concerns M-F 8 to 4:30 ; office # [phone], option 6, then option 2. Guidelines for home management: 1. Continue to monitor weight first thing each morning. 2. Report to the CHF CLINIC ([phone]) any significant weight change. Remember that weight [...] to have labs/tests run outside of the [facility] and you do not hear from us 1-2 days after they are performed, you must call us to ensure we received the results. Office fax # [phone]. No news does not necessarily mean that your tests are normal, it could mean we did not get the results. For questions/updates: please provide your name with spelling, date of and question or update All calls are prioritized and responses researched, if possible, prior to calls being returned. Call Scheduling for any appointment/procedure verification or changes [phone], option 7 or [facility] at [phone], option 1. documented in this encounter [facility] 01-23-2024 Nurse Note Jakob wrap & kerlix [...] to transport home on home oxygen supply. 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] POST OPERATIVE DIAGNOSIS Post-Op Diagnosis Codes: * High output congestive heart failure [I50.83] PROCEDURE PERFORMED Procedure(s) (LRB): LIGATION ANGIOACCESS AVF (Left) Resection of large aneurysmic vein PRIMARY CLOSURE Yes INTRAOPERATIVE FINDINGS No significant abnormalities SURGEON Surgeons and Role: * Jyoti Bryant MD, PhD - Primary ANESTHESIOLOGIST Anesthesiologist: Celena Tiwari MD; Kehinde Gutierrez MD ORTHO ASSISTANT: David Jasso APRN-ORTHO ASSISTANT Bingo Checker Assisting: Mini Khan MD SURGICAL STAFF Parking Lot Signaler: Zoila Lawrence RN Relief Parking Lot Signaler: Marimar Saravia RN Relief Scrub: Briseyda Self [...] patient breathing easily. Report received from surgical appliance fitter and report received from anesthesiology. Pt arrived [...] Axillary block. SURGEON(S): Jyoti Bryant MD, PHD FURNITURE UPHOLSTERY MECHANIC: Mynor Fall MD ESTIMATED BLOOD LOSS: Minimal. [...] procedure. Dictated By: Jyoti Bryant MD, PHD Joyti Bryant MD, PHD ATTENDING SHANNON/Constanza JOB: [id number] DOC: [id number] Patient has been asleep this shift. He [...] overnight coverage, Jasper Gastelum MD, via pager #[phone] Pt- George Styles. Sarah 1082. TM1. Was wondering if he can have his Melatonin order increased to 6mg. Per pt, he usually takes 8mg at home. -SAMI Duffy #[phone] Tati Charles RN Internal Medicine Daily Progress Note Patient: George Styles, 1970, [id number] Physician: Arelis Mera MD, PGY3, Pager #[phone], TM1 service Assessment/Plan: George Styles is a [...] home amlodipine 5mg CAD: non-obstructive CAD on [facility] 2018. - continue home aspirin 81mg [...] Mera MD Mr. Styles was admitted to [address] [place] [address]. On admission to R10, from outside facility a dual RN initial assessment of skin condition was performed by Izzy Gutierrez RN and Leroy Singleton RN. Skin Assessment: Skin within defined limits:Yes Jose Score: 20 Wound Vision Protective Signal Installer images obtained: No LDA Added: No Based [...] station when available. documented in this encounter [facility] 01-23-2024 Nurse Note Home [...] at 4L of oxygen is also required.) [facility] 01-23-2024 History of Present illness Narrative BRIEF [...] mg Oral Daily Kelvin Pacheco MD, MBBS oceanography professor Transplant nephrology Surgery Post-Op Check Note [...] monitor Leonel Harris DO General Surgery Pager [phone] CM went to bedside to talk with patient. Patient states he has home oxygen through [employer]. He uses 2.5 LNC around the clock. Patient states his brother will bring a tank for discharge. Anticipate patient will discharge tomorrow AM. Brother updated. Girish Oro RN, BSN Clinical Email Marketing Executive Please note that I am a float senior case manager and may not cover the same service every day. Please call the main Case Management office at [phone] for up-to-date coverage. Verified patients identity using [...] Daily Progress Note Patient: George Styles, 1970, [id number] Physician: Yury Ozuna MD, PGY1, Pager #[phone], TM1 service Assessment/Plan: George Styles is a [...] by transplant surgery on 01/22 ([place] at [place], updated type & screen) S/p Liver-Kidney Transplant [...] home amlodipine 5mg CAD: non-obstructive CAD on [facility] 2018. - continue home aspirin 81mg [...] with the Nutrition plan outlined in the Insurance Sales Supervisor s note. DVT prophylaxis with lovenox Diet [...] in resident note. Kelvin Pacheco MD, MBBS oceanography professor Transplant nephrology Patient seen and examined [...] Oral BID AC Kelvin Pacheco MD, MBBS oceanography professor Transplant nephrology Images from the original note were not included. Internal Medicine Daily Progress Note Patient: George Styles, 1970, [id number] Physician: Yury Ozuna MD, PGY1, Pager #[phone], TM1 service Assessment/Plan: George Styles is a [...] with the Nutrition plan outlined in the Insurance Sales Supervisor s note. DVT prophylaxis with lovenox Diet DIET HEART HEALTHY - 4 GM SODIUM Disposition: home pending clinical improvement and evaluation Code status is Full Code Discussed with team and attending, Kelvin Pacheco MD, LU , on rounds. Signed, Yuyr Ozuna MD PGY-1 Subjective/Interval History: No acute [...] Provider: Zuly Bruno NP Pharmacy: [facility] Other Comments: Patient reported his Last Home Dose of mycophenolate and tacrolimus was on 01/15/24 at 0700. Medications that need removed from Outside Medication Reconciliation list: Please remove all medications. Please feel free to contact me with any further questions. Name: Heidy Chatman Phone #: [phone] Date/Time: 01/19/2024 12:08 PM Time Spent: 15 minutes Associated attestation - Fidelina Alarcon RP - 01/19/2024 12:41 PM EST Department of Pharmacy Admission Medication Reconciliation Note Patient: George Styles Room/Bed: 1082/A I have reviewed the home medication list with the Medical Records Technician. The home medication list status is: complete. All changes to the home medication list have been updated in [facility]. Updated DINKEY BRAKEMAN Med List: Prior to Admission Medications Prescriptions [...] with any further questions. Name: Fidelina Alarcon [facility] Phone #: [phone] Date/Time: 01/19/2024 12:41 PM Internal Medicine Daily Progress Note Patient: George Styles, 1970, [id number] Physician: Yury Ozuna MD, PGY1, Pager #[phone], XN6 service Assessment/Plan: Acute Hypoxic Respiratory Insufficiency GARCIA, [...] with the Nutrition plan outlined in the Insurance Sales Supervisor s note. DVT prophylaxis with lovenox Diet [...] mg Oral Daily Kelvin Pacheco MD, MBBS oceanography professor Transplant nephrology Internal Medicine Daily Progress Note Patient: George Styles, 1970, [id number] Physician: Yury Ozuna MD, PGY1, Pager #[phone], BX2 service Assessment/Plan: Updates: - continued diuresis with [...] home amlodipine 5mg CAD: non-obstructive CAD on [facility] 2018. - continue home aspirin 81mg [...] with the Nutrition plan outlined in the Insurance Sales Supervisor s note. DVT prophylaxis with lovenox Diet [...] - Tara, Kelvin Ortiz MD, MBBS - 01/18/2024 4:20 PM EST Patient seen and examined at bedside today during multidisciplinary rounds with medicine residents and pharmacy, charts reviewed, laboratory parameters reviewed. Agree with plan of care as mentioned in resident note. Kelvin Pacheco MD, MBBS oceanography professor Transplant nephrology Pt known to biopharmaceutical rep from previous admissions. Provided emotional and spiritual support. Patient shared about: family support, medical course Knee Bolter provided: - Supportive presence - Active listening - Validation of feelings/emotions Patient encouraged to request a biopharmaceutical rep as needed. Chaplains are available in-house 24 hours a day and 7 days a week. For urgent matters in [facility], please page [phone]. If the request is not urgent, please enter a consult. Consults are responded to within 24 hours. Senior Staff Knee Bolter Angie Singh Mdiv, [facility] [place] [phone] [email or web address] On-call : scallop shucker David: 22/06 Pager ,[facility], and Brock Maciel Pager [phone] 01/18/24 1342 Clinical Encounter Type Visited With Patient Visit Type Introduction Pastoral Time Spent 15 min Referral Other (See Comment) (rounding) Spiritual Assessment Emotional Observation Coping well;Anxiety Hope Observation Specific hope focus Support Observation By Family Interventions Provided Active listening;Supportive presence Facilitated Verbalization of feelings;Identifying support system;Identifying Sources of spiritual well-being Explored Expectations;Treatment decisions Planishing Hammer Operator Education Planishing Hammer Operator Service Available Yes Educated Patient Outcomes Patient [...] any potential drug interaction. Name: Fidelina Alarcon [facility] Phone #: [phone] Date/Time: 01/18/2024 9:56 AM Discharge Planning Patient [...] Yes Name and Contact information: Gian Jensen ([phone]) Would you like to add additional adult [...] oxygen?: Yes Oxygen Provider and Contact : [employer] Liter-Flow?: 21/2-3 Order for oxygen use?: unknown at this [...] patient on Anticoagulation? : No [id number] [place] [address] - [address] [address] Head Pumper Does the patient or medical claims representative express financial concerns? : No Employed?: Disabled Coping/Stress Concerns about patient s coping and stress?: No Concerns about patient s caregiver s coping and stress?: No Values and Beliefs Cultural or sikh practices that may impact discharge planning and/or [...] Plan 1. Identified self and role as Email Marketing Executive. 2. Confirmed and updated demographics and treatment team. 3. Email Marketing Executive will continue to follow with medical team for any other additional discharge needs. Kasandra DON RN *Please note I am float CM and work Thursday and Thursday every other week. Please call [phone] for assist in my absence. Internal Medicine Daily Progress Note Patient: George Styles, 1970, [id number] Physician: Yury Ozuna MD, PGY1, Pager #[phone], TM1 service Assessment/Plan: Updates: - continue diuresis [...] home amlodipine 5mg CAD: non-obstructive CAD on [facility] 2018. - continue home aspirin 81mg [...] ordered 2D echo. Kevin Sage MD, MADISONN Machine Burrer of Clinical Medicine [facility] documented in this encounter [facility] 01-23-2024 Plan of care note Patient has [...] Symptoms (Acute Pain): verbalization of pain descriptors [facility] 01-22-2024 Hospital Discharge instructions Arelis Mera MD [...] your doctor for further instructions. Please call [phone], Option 1 or [phone] to schedule your appointment with the Heart Failure Clinic. Arelis Mera MD - 01/22/2024 3:08 PM EST You can change your dressing 48 hours from the procedure The following attachments cannot be sent through Care Everywhere.Heart Failure: Avoiding Triggers (Bruneian)Heart Failure: Limiting Sodium (Bruneian)Pain and Pain Control ([facility]) (Bruneian)documented in this encounter [facility] 01-22-2024 Surgery Postoperative evaluation and management note George Styles ([id number]) PRE OPERATIVE DIAGNOSIS High output congestive heart failure [I50.83] POST OPERATIVE DIAGNOSIS Post-Op Diagnosis Codes: * High output congestive heart failure [I50.83] PROCEDURE PERFORMED Procedure(s) (LRB): LIGATION ANGIOACCESS AVF (Left) Resection of large aneurysmic vein PRIMARY CLOSURE Yes INTRAOPERATIVE FINDINGS No significant abnormalities SURGEON Surgeons and Role: * Jyoti Bryant MD, PhD - Primary ANESTHESIOLOGIST Anesthesiologist: Celena Tiwari MD; Kehinde Gutierrez MD ORTHO ASSISTANT: David Jasso APRN-ORTHO ASSISTANT Bingo Checker Assisting: Mini Khan MD SURGICAL STAFF Parking Lot Signaler: Zoila Lawrence RN Relief Parking Lot Signaler: Marimar Saravia RN Relief Scrub: Briseyda Self Scrub Person: Cinda Mai RN Resident Assisting: Leonel Harris DO Fellow: Miki Mcgowan MD, MBBS COMPLICATIONS None ESTIMATED BLOOD LOSS Minimal SPECIMENS No specimen sent * No specimens in log * Jyoti Bryant MD, PhD January 22, 2024 1:34 PM [facility] Work Phone: 01-22-2024 Nurse Note Arrived to PACU assisted by anesthesiology. Connected to monitors. Turned side to side, OR linens removed, repositioned. Airway patent, patient breathing easily. Report received from surgical appliance fitter and report received from anesthesiology. Pt arrived awake. VSS. Sats slightly low. Pulm rehab used. Sats currently 3lpm @ 93%. Pt states he uses CPAP nocturnally. A&Ox4. Nerve block left arm, elevated. [facility] 01-22-2024 Surgery Postoperative evaluation and [...] Axillary block. SURGEON(S): Jyoti Bryant MD, PHD FURNITURE UPHOLSTERY MECHANIC: Mynor Fall MD ESTIMATED BLOOD LOSS: Minimal. [...] Jyoti Bryant MD, PHD ATTENDING AR/MedQ JOB: [id number] DOC: [id number] [facility] 01-22-2024 Plan of care note [...] 1939 Plan Of Care Reviewed With: patient [facility] 01-20-2024 Consult note Associated Order (s): IP CONSULT TO SURGERY - TRANSPLANT (RENAL) Images from the original note were not included. TRANSPLANT SURGERY CONSULT NOTE: Consult: 01/20/2024, 4:03 PM Glue Spreader: Starla Morris MD Reason for Consult: Requesting Dr Carson Bryant for AVF revision/closure given new onset high output heart failure George Styles is a 53 y.o. male CURRENT HOSPITALIZATION LOS: Admit Date: 01/16/2024 [facility] Hospital LOS: 4 days George Styles [...] 04/12/2020 Laterality: N/A; Surgeon: LU Palma; Location: [facility] SAME DAY SURGERY MAIN OR KIDNEY TRANSPLANT W/O OHOGAMIUT NEPHRECTOMY N/A 04/12/2020 Laterality: N/A; Surgeon: LU Palma; Location: [facility] SAME DAY SURGERY MAIN OR OTHER SURGICAL [...] seen and staffed with Dr. Mcgowan fellow polymerization supervisor Thank you, Starla Morris MD Associated attestation - Jyoti Bryant MD, PhD - 01/22/2024 10:54 AM EST IRomaine Bryant MD, PhD, have independently seen and examined the patient, reviewed the labs, discussed the patient with the fellow/resident and agree with the note. [facility] Work Phone: 01-20-2024 Consult note Associated Order (s): IP CONSULT TO SURGERY - TRANSPLANT (RENAL) Images from the original note were not included. TRANSPLANT SURGERY CONSULT NOTE: Consult: 01/20/2024, 4:03 PM Glue Spreader: Starla Morris MD Reason for Consult: Requesting Dr Carson Bryant for AVF revision/closure given new onset high output heart failure George Styles is a 53 y.o. male CURRENT HOSPITALIZATION LOS: Admit Date: 01/16/2024 [facility] Hospital LOS: 4 days George Styles [...] DAY SURGERY MAIN OR KIDNEY TRANSPLANT W/O OHOGAMIUT NEPHRECTOMY N/A 04/12/2020 Laterality: N/A; Surgeon: LU [...] seen and staffed with Dr. Mcgowan fellow polymerization supervisor Thank you, Starla Morris MD Associated attestation [...] DAY SURGERY MAIN OR KIDNEY TRANSPLANT W/O OHOGAMIUT NEPHRECTOMY N/A 04/12/2020 Laterality: N/A; Surgeon: LU Palma; Location: [facility] SAME DAY SURGERY MAIN OR OTHER SURGICAL [...] (order for outpatient) Please SecureChat or Call ([phone]) for any questions. Await attending attestation for final recommendations. Hank Noel MD Division of Gastroenterology, Hepatology, and Nutrition Clinical Fellow, PGY-5 Pager: [phone] For urgent/stat calls or consults 5pm to 7am, please page the on-call GI fellow on QGenda. [facility]--> Internal Medicine--> Gastroenterology, Hepatology, & Nutrition--> 1st Call Fel Alysia For urgent/stat calls or consults 7am to 5pm during the weekend, please page the on-call GI fellow on QGenda. [facility]--> Internal Medicine--> Gastroenterology, Hepatology, & Nutrition--> All Hep & East Wknd Cons Fel Day For follow up questions regarding this patient 7am to 5pm during the weekday, contact the Hepatology consults fellow or CARLOS A on QGenda. [facility]--> Internal Medicine--> Gastroenterology, Hepatology, & Nutrition--> [...] rest, 95-96% when talking/moving. Paulette Cordon RN [facility] 01-19-2024 Nurse Note Paged overnight coverage, Jasper Gastelum MD, via pager #[phone] Pt- George Styles. Sarah 1082. TM1. Was wondering if he can have his Melatonin order increased to 6mg. Per pt, he usually takes 8mg at home. -SAMI Duffy #[phone] Tati Charles RN [facility] 01-18-2024 Consult note Associated Order (s): IP CONSULT TO [facility] Main Hepatology Consult WebExchange --> IM Consult Serv [facility] --> OS Main Hepatology consult service Fellow [...] GUIDANCE 05/17/2022 Surgeon: Enzo Heart DO; Location: [facility] INTERVENTIONAL RADIOLOGY (VIR) LIVER TRANSPLANT, ORTHOTOPIC N/A 04/12/2020 Laterality: N/A; Surgeon: LU Palma; Location: [facility] SAME DAY SURGERY MAIN OR KIDNEY TRANSPLANT W/O OHOGAMIUT NEPHRECTOMY N/A 04/12/2020 Laterality: N/A; Surgeon: LU Palma; Location: [facility] SAME DAY SURGERY MAIN OR OTHER SURGICAL [...] (order for outpatient) Please SecureChat or Call ([phone]) for any questions. Await attending attestation for final recommendations. Hank Noel MD Division of Gastroenterology, Hepatology, and Nutrition Clinical Fellow, PGY-5 Pager: [phone] For urgent/stat calls or consults 5pm to 7am, please page the on-call GI fellow on QGenda. [facility]--> Internal Medicine--> Gastroenterology, Hepatology, & Nutrition--> 1st Call Janae Hatfield For urgent/stat calls or consults 7am to 5pm during the weekend, please page the on-call GI fellow on QGenda. [facility]--> Internal Medicine--> Gastroenterology, Hepatology, & Nutrition--> All Hep & East Wknd Cons For follow up questions regarding this patient 7am to 5pm during the weekday, contact the Hepatology consults fellow or CARLOS A on QGenda. [facility]--> Internal Medicine--> Gastroenterology, Hepatology, & Nutrition--> [...] (order for outpatient) Michael Estrada MD, MSc [facility] Work Phone: 01-16-2024 Plan of care note Internal Medicine Daily Progress Note Patient: George Styles, 1970, [id number] Physician: Arelis Mera MD, PGY3, Pager #[phone], TM1 service Assessment/Plan: George Styles is a 53 y.o. 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 [...] MD, on rounds. Signed, Arelis Mera MD [facility] 01-16-2024 Nurse Note Mr. Styles was admitted to [address] [place] [address]. On admission to [facility], from outside facility a dual RN initial assessment of skin condition was performed by Izzy Gutierrez RN and Leroy Singleton RN. Skin Assessment: Skin within defined limits:Yes Jose Score: 20 Wound Vision Protective Signal Installer images obtained: No LDA Added: No Based [...] room closest to nurses station when available. [facility] 01-16-2024 History and physical note Images from the original note were not included. Internal Medicine Admission History & Physical Patient: George Styles, 1970, [id number] Physician: Timothy Joseph MD, PGY1, Pager #[phone], TM 1 service Date of face to [...] GUIDANCE 05/17/2022 Surgeon: Enzo Heart DO; Location: [facility] (VIR) LIVER TRANSPLANT, ORTHOTOPIC N/A 04/12/2020 Laterality: N/A; Surgeon: LU Palma; Location: [facility] SAME DAY SURGERY MAIN OR KIDNEY TRANSPLANT W/O [place]OG[place] NEPHRECTOMY N/A 04/12/2020 Laterality: N/A; Surgeon: LU Palma; Location: [facility] SAME DAY SURGERY MAIN OR OTHER SURGICAL [...] itraconazole Fax results to: Dr. White - [phone] Transplant Neph - [phone] Gabapentin 400 MG capsule Sig: Take 1 [...] erythema: Skin: No jaundice or rash Neuro: risk assessor 3-7, 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 Strength grossly [...] home amlodipine 5mg CAD: non-obstructive CAD on [facility] 2018. - continue home aspirin 81mg daily Gout: continue home allopurinol 200mg daily BPH: continue home flomax 0.4mg daily Complexity. Obesity Body mass index is 32.8 kg/m . - Follow with PCP for dietary and lifestyle modifications. Any conditions listed below are present on admission unless otherwise specified. . DVT prophylaxis with lovenox Disposition: admitted to [facility] Code status is Full Staffed with [...] Pierson, Luisa Steven, Renee Rivera, Daisha Max Dog Day Care Attendant: José Miguel Garnica All Txt: 04/13/2020 (Kidney), [...] results found for: CYCLOSPORIN , CYCLOSPORIN2 , [id number] , CYCLORAND No results found for: SIROLIMUS [...] request in chart. Kevin Sage MD Pager [phone] [facility] 01-16-2024 History and physical note Images from the original note were not included. Internal Medicine Admission History & Physical Patient: George Styles, 1970, [id number] Physician: Timothy Joseph MD, PGY1, Pager #[phone], TM 1 service Date of face to face patient encounter: 01/16/24 . Chief Complaint: Lower extremity edema and shortness of breath History Of Present Illness: George Styles is a 53 y.o. 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 Patient states that around a week ago [...] GUIDANCE 05/17/2022 Surgeon: Enzo Heart DO; Location: [facility] (VIR) LIVER TRANSPLANT, ORTHOTOPIC N/A 04/12/2020 Laterality: N/A; Surgeon: LU Palma; Location: [facility] SAME DAY SURGERY MAIN OR KIDNEY TRANSPLANT W/O [place] NEPHRECTOMY N/A 04/12/2020 Laterality: N/A; Surgeon: LU Palma; Location: [facility] SAME DAY SURGERY MAIN OR OTHER SURGICAL [...] itraconazole Fax results to: Dr. White - [phone] Transplant Neph - [phone] Gabapentin 400 MG capsule Sig: Take 1 [...] erythema: Skin: No jaundice or rash Neuro: risk assessor 3-7, 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 Strength grossly [...] home amlodipine 5mg CAD: non-obstructive CAD on [facility] 2018. - continue home aspirin 81mg daily Gout: continue home allopurinol 200mg daily BPH: continue home flomax 0.4mg daily Complexity. Obesity Body mass index is 32.8 kg/m . - Follow with PCP for dietary and lifestyle modifications. Any conditions listed below are present on admission unless otherwise specified. . DVT prophylaxis with lovenox Disposition: admitted to [facility] Code status is Full Staffed with [...] Pierson, Luisa Steven, Renee Rivera, Daisha Max Dog Day Care Attendant: José Miguel aGrnica All Txt: 04/13/2020 (Kidney), 04/13/2020 (Liver) Current [...] results found for: CYCLOSPORIN , CYCLOSPORIN2 , [id number] , CYCLORAND No results found for: SIROLIMUS [...] request in chart. Kevin Sage MD Pager [phone] documented in this encounter [facility] 01-12-2024 History of Present illness [...] Name: Prograf 0.2 MG Contact Info: Specialty ([place]) [phone] [facility] [phone] [facility] [phone] David [phone] Bedside Delivery ([facility]) [phone] [facility] RX OUTREACH ADVANCED: Call Information: Date and Time of Contact: 01/25/2024 10:23 AM Method of Contact: By Phone Contact Type: Prescriptions Contactor: [facility] Contactee: Patient Contact Outcome: Left message (prograf myco) Contact Info: Specialty ([place]) [phone] [facility] [phone] [facility] [phone] David [phone] Bedside Delivery ([facility]) [phone] documented in this encounter [facility] 01-12-2024 History of Present [...] Name: Prograf 0.2 MG Contact Info: Specialty ([place]) [phone] [facility] [phone] [facility] [phone] David [phone] Bedside Delivery ([facility]) [phone] [facility] RX OUTREACH ADVANCED: Call Information: Date and Time of Contact: 01/25/2024 10:23 AM Method of Contact: By Phone Contact Type: Prescriptions Contactor: [facility] Contactee: Patient Contact Outcome: Left message (prograf myco) Contact Info: Specialty ([place]) [phone] [facility] [phone] [facility] [phone] [facility] [phone] Bedside Delivery ([facility]) [phone] [facility] RX OUTREACH ADVANCED: Call Information: Date and Time of Contact: 01/27/2024 10:19 AM Method of Contact: By Phone Contact Type: Prescriptions Contactor: [facility] Contactee: Patient Contact Outcome: Left message (myco prograf) Contact Info: Specialty (Yanci) [phone] [facility] [phone] [facility] [phone] [facility] [phone] Bedside Delivery ([facility]) [phone] documented in this encounter [facility] 01-12-2024 History of Present [...] Prograf 0.2 MG Contact Info: Specialty (Yanci) [phone] [facility] [phone] [facility] [phone] [facility] [phone] Bedside Delivery ([facility]) [phone] [facility] RX OUTREACH ADVANCED: Call Information: Date and Time of Contact: 01/25/2024 10:23 AM Method of Contact: By Phone Contact Type: Prescriptions Contactor: [facility] Contactee: Patient Contact Outcome: Left message (prograf myco) Contact Info: Specialty ([place]) [phone] [facility] [phone] [facility] [phone] David [phone] Bedside Delivery ([facility]) [phone] [facility] OUTREACH ADVANCED: Call Information: Date and Time of Contact: 01/27/2024 10:19 AM Method of Contact: By Phone Contact Type: Prescriptions Contactor: [facility] Contactee: Patient Contact Outcome: Left message (myco prograf) Contact Info: Specialty ([place]erry) [phone] [facility] [phone] [facility] [phone] David [phone] Bedside Delivery ([facility]) [phone] [facility] OUTREACH ADVANCED: Call Information: Date and Time of Contact: 02/01/2024 3:22 PM Contact Type: Prescriptions Contactor: [facility] Contactee: Patient Contact Outcome: Left message Shipping/Pickup: Medication Name: Mycophenolate 360mg and Prograf 0.2mg Pack Contact Info: Specialty ([place]erry) [phone] [facility] [phone] [facility] [phone] David [phone] Bedside Delivery ([facility]) [phone] documented in this encounter [facility] 01-06-2024 History of Present [...] wanted to send him to [facility] neurology but it is out of network [...] 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) documented in this encounter [facility] 10-06-2023 History of [...] ; Prograf 0.2 MG Contact Info: Specialty ([place]erry) [phone] Jakob [phone] [facility] [phone] David [phone] Bedside Delivery ([facility]) [phone] [facility] OUTREACH ADVANCED: Call Information: Date and Time of Contact: 10/23/2023 2:00 PM Method of Contact: By Phone Contact Type: Prescriptions Contactor: [facility] Contactee: Patient Contact Outcome: Left message and Call back later Shipping/Pickup: Medication Name: Mycophenolate 360mg and Prograf 0.2mg Contact Info: Specialty ([place]) [phone] Jakob [phone] [facility] [phone] David [phone] Bedside Delivery ([facility]) [phone] documented in this encounter [facility] 09-11-2023 Miscellaneous Notes Pt discharged [...] the oxygen during the night. pt will forklift picker his oxygen from [employer], 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 This [...] Patient seen ambulating in the velazquez with SHAMPOO PERSON. Patient was mildly short of breath on [...] & HR 114. Messaged Mainor Loomis, via [place] secure chat, Temp 100.8. His tylenol order [...] treatment plan for fungal infection with ID hudsonorrow - follow culture results from [facility] - [...] short period of time. 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 Episode of [...] Critical Care Medicine Message Mainor Loomis, via [place] secure chat, Good evening, just an FYI, [...] short period of time. 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 This morning, [...] rebreather 15L.... Tco2 [address] Wichmann here also (a/c tech) Dr. Diaz aware of pt's increased oxygen [...] regular sleep/rest pattern promoted Sent a secure [employer] chat to Rosi LUZ concerning patient's temp [...] Medicine-Pediatrics, PGY-2 Mr. Styles was admitted to [address] [place] [address]. On admission to 0, from home a dual RN initial assessment [...] discharge and looking forward to seeing family Knee Bolter provided: - Supportive presence - Active listening - Validation of feelings/emotions Patient encouraged to request a biopharmaceutical rep as needed. Chaplains are available in-house 24 hours a day and 7 days a week. For urgent matters in [facility], please page [phone]. If the request is not urgent, please enter a consult. Consults are responded to within 24 hours. Senior Staff Knee Bolter Angie Singh Mdiv, [facility] Kirk [phone] [email or web address] 22/06 On-call [place]: [phone] 22/06 Pager ,[facility], and [place] 1500 David Pager [phone] 09/11/23 1430 Clinical Encounter Type Visited With Patient Visit Type Follow-up Pastoral Time Spent 15 min Referral Other (See Comment) (rounding) Spiritual Assessment Spiritual Observation Spirituality helpful Emotional Observation Coping well Hope Observation Specific hope focus Support Observation By Family Interventions Provided Active listening;Supportive presence Facilitated Verbalization of feelings Explored Expectations Planishing Hammer Operator Education Planishing Hammer Operator Service Available Yes Educated Patient Plan of Care Continue Visiting PRN Images from the original note were not included. [facility] ([facility] Note: Non-Verbal Med Rec [facility] received the following discharge prescription(s): Total cost is $0. I have reviewed the Discharge Rx Reconciliation Report. The discharge prescription(s) will be delivered to the patient on 09/11/2023. Dimitrios Gurrola [facility],PharmD Specialty (Yanci) [phone] Jakob [phone] Jakob Bedside Delivery [phone] [facility] [phone] [facility] Bedside Delivery [phone] David [phone] [facility] Bedside Delivery [phone] [facility] [phone] Thelma [phone] Electronically signed by Dimitrios Gurrola [facility],PharmD at 09/11/2023 10:52 AM EDT Internal Medicine Daily Progress Note Patient: George Styles, 1970, [id number] Physician: Evan Kelly MD, PGY-1, TM1 service Subjective/Interval History: Patient continues to require oxygen overnight for desaturations. With insurance limitations, only accepting agency to provide home oxygen backed out. After calling them to discuss, Lynn stated she would be willing to have patient drive to their facility to forklift picker supplies, however they close at 5pm. 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 His [place] kidney disease was noted to be presumed [...] losartan 50mg BID CAD: non-obstructive CAD on [facility] 2018. - continue home aspirin 81mg [...] 5.05 (H) 11/19/2018 Kevin Sage MD, SERA Machine Burrer of Clinical Medicine [facility] Images from the original note were not included. Final Discharge Planning and Transportation Final Discharge Planning Discharge Disposition: Home Services at Discharge: Outpatient clinical services (ie: lab draws, transfusions, injectables) (Home Oxygen by [facility]) Selected Continued Care - Admitted Since 08/28/2023 Durable Medical Equipment Coordination complete. Service Provider Selected Services Address Phone Fax Patient Preferred [facility] [employer] [facility] [employer] [address] [address] Internal Comment last updated by Lora Lawrence RN 09/10/2023 1334 Correct contact information: [facility] [address] [place] [address] [place] [address] tetryl screen operator- you do not need to call at discharge, I already notified the company. Addendum [phone] [facility] notified this CM they are out of patient's insurance area and will not be able to service this patient at time of discharge. Provider notified. Addendum [phone] Dr Kelly called [facility] spoke to Lynn and she said they are willing to accept patient if the patient would drive to the [place] office and forklift picker the supplies. Patient is willing to [...] Lora Colón RN, MSN, CCM, CMCN Clinical Email Marketing Executive- R[facility] Transplant #[phone] Department of Pharmacy Transplant Note Patient: George [...] dose adjustment Name: Matt Kramer RPh,PharmD Phone: [phone] Date/Time: 09/10/2023 11:33 AM This CM sent referral via [employer] for O2 concentrator to 4 agencies Start date today Timer set for [address] [place] [facility] Addendum 1332 One accepting company reserved in [place] [address] [place] [address] [place] [address] Lora Colón RN, MSN, CCM, CMCN Clinical Email Marketing Executive- [facility] Transplant #[phone] NUTRITION FOLLOW-UP Nutrition Plan of Care: 1. Continue current diet order. 2. No oral supplements warranted at this time. 3. Monitor for significant weight changes. Monitor GI, skin integrity. 4. Monitor and encourage po intakes with goal of average po being 75-100%. 5. boiler/chiller technician to follow. ___ Met with patient [...] time. Will continue to monitor. RHIANNON [place]R Pager:[phone] Transplant Infectious Disease (Team 3) Progress Note [...] sign off. Please Epic message or page [phone] with questions. 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 His [place] kidney disease was noted to be presumed [...] losartan 50mg BID CAD: non-obstructive CAD on [facility] 2018. - continue home aspirin 81mg [...] to follow. Please Epic message or page [phone] with questions. 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 His [place] kidney disease was noted to be presumed [...] losartan 50mg BID CAD: non-obstructive CAD on [facility] 2018. - continue home aspirin 81mg daily, holding atorvastatin 20mg daily Gout: continue home allopurinol 200mg daily BPH: continue home flomax 0.4mg daily DVT PPX: SQH Code Status: Full Code Disposition: Pending clinical course. Anticipate eventual discharge home. Discussed with team and attending, Kevin Sage MD, on rounds. Signed, Laurel Serrano MD, PhD Internal Medicine Daily Progress Note Patient: George Styles, 1970, [id number] Physician: Evan Kelly MD, PGY-1, TM1 service Subjective/Interval History: No acute events overnight. Patient saturating appropriately on room air. He has been mobilizing his secretions. Denies any shortness of breath. All questions answered by the team on rounds. 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 His [place] kidney disease was noted to be presumed [...] losartan 50mg BID CAD: non-obstructive CAD on [facility] 2018. - continue home aspirin 81mg [...] 5.05 (H) 11/19/2018 Kevin Sage MD, MADISONN Machine Burrer of Clinical Medicine [facility] Comprehensive Transplant [facility] Transplant Infectious [...] to follow. Please Epic message or page [phone] with questions. Ann Marie Haskins MD PGY-4, [...] he continues to improve. Please message via [place] secure chat or page with any questions or concerns. Evan White DO Machine Burrer Division of Infectious Disease Transplant Infectious Disease [...] to follow. Please Epic message or page [phone] with questions. Evan White DO Transplant Infectious Diseases Images from the original note were not included. Pulmonary/Critical Care Medicine Daily Progress Note Reason for Consultation: bronch for infectious workup Requesting Physician: Dr. Sage CURRENT HOSPITALIZATION: Admit Date: 08/28/2023 [facility] LOS: 9 days Impression 1. [...] outpt pulmonary clinic We will sign off rCow Diaz MD Pulmonary and Critical Care Medicine [...] and interpreted reviewed the radiographic data in [facility]/careeverywhere. 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 His [place] kidney disease was noted to be presumed [...] losartan 50mg BID CAD: non-obstructive CAD on [facility] 2018. - continue home aspirin 81mg [...] 5.05 (H) 11/19/2018 Kevin Sage MD, MADISONN Machine Burrer of Clinical Medicine [facility] Images from the original note were not included. Pulmonary/Critical Care Medicine Daily Progress Note Reason for Consultation: bronch for infectious workup Requesting Physician: Dr. Sage CURRENT HOSPITALIZATION: Admit Date: 08/28/2023 [facility] LOS: 8 days Impression 1. [...] and interpreted reviewed the radiographic data in [facility] hospitale/careeverywhere. Acute Occupational Therapy Evaluation Prior to Admission [...] Assessment: Transfer Assessment: Sit to Stand Transfer [place] Level: Sit->Stand: independent Skilled Intervention/Details: Sit->Stand: x1 from EOB, x1 from toilet Stand to Sit Transfer [place] Level: Stand->Sit: independent Skilled Intervention/Details: Stand->Sit: x1 to toilet, x1 to EOB Functional Mobility: Functional Mobility [place] Level: Functional Mobility/Gait: independent Ambulation Distance (Feet): 20 Skilled Intervention/Details - Functional Mobility/Gait: pt performed functional mobility to/from RR w/ no overt LOB Outcome Score(s): CURRENT [facility] Daily Activity Inpatient Short Form Putting on/Taking Off Lower Body Clothin - A Little Assistance Bathin - A Little Assistance Toiletin - A Little Assistance Putting on/Taking Off Upper Body Clothin - No Assistance Groomin - No Assistance Eatin - No Assistance CURRENT [facility] Activity Raw Score: 21 CURRENT [facility] Activity Functional Limitation/Modifier: 32.79% Currently Impaired [...] Acute Physical Therapy Evaluation Prior to Admission [facility] score(s): PRIOR LEVEL AM-PAC Mobility Raw [...] Intact Mobility Assessment: Supine to Sit Mobility [place] Level: Supine->Sit: modified independence Bed Features/Set-up: Supine->Sit: Head of bed elevated Sit to Supine Mobility [place] Level: Sit->Supine: not tested Balance: Sitting Balance [...] environment. Transfer Assessment: Sit to Stand Transfer [place] Level: Sit->Stand: independent Skilled Intervention/Details: Sit->Stand: From EOB x 2 without difficulty. Stand to Sit Transfer [place] Level: Stand->Sit: independent Assistive Device: Stand->Sit: armed chair Skilled Rationale: Verbal cues, Positioning Gait/Functional Mobility: Gait Assessment [place] Level: Gait: stand-by assist Assistive Device: Gait: rollator Ambulation Distance (Feet): 400 Gait Deviations Identified: decreased grace, decreased gait speed Gait Skilled Rationale: verbal, upright posture, increase step length, increase foot clearance Skilled Intervention/Details - Gait: Reasonable foot clearnce without loss of balance but endorsing dyspnea as 6-7/10. Stairs: Stairs Assessment [place] Level: Stair Negotiation: not tested Outcome Score(s): CURRENT [facility] Basic Mobility Inpatient Short Form Turning over in bed: 4 - No Assistance Sitting/standing from chair: 4 - No Assistance Moving from lying on back to sittin - No Assistance Moving to and from bed to chair: 3 - A Little Assistance Walk in hospital room: 3 - A Little Assistance Climbing 3-5 steps with a railin - A Little Assistance CURRENT [facility] Mobility Raw Score: 21 CURRENT [facility] Mobility Functional Limitation/Modifier: 28.97% Currently Impaired [...] Daily Progress Note Patient: George Styles, 1970, [id number] Physician: Evan Kelly MD, PGY-1, TM1 service [...] s/p combined Liver-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 His [place] kidney disease was noted to be presumed [...] losartan 50mg BID CAD: non-obstructive CAD on [facility] 2018. - continue home aspirin 81mg [...] 5.05 (H) 11/19/2018 Kevin Sage MD, SERA Machine Burrer of Clinical Medicine [facility] Transplant Infectious [...] to follow. Please Epic message or page [phone] with questions. Evan White DO Transplant Infectious Diseases Images from the original note were not included. 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 His [place] kidney disease was noted to be presumed [...] losartan 50mg BID CAD: non-obstructive CAD on [facility] 2018. - continue home aspirin 81mg [...] P 450 system Kevin Sage MD, SERA Machine Burrer of Clinical Medicine [facility] [facility] ERT Note: [...] MD, PhD Internal Medicine and Pediatrics PGY-3 [facility] Brief plan of care update: Called [...] MD, PhD Internal Medicine and Pediatrics PGY-3 [facility] Transplant Infectious Disease (Team 3) Progress [...] to follow. Please Epic message or page [phone] with questions. 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 His [place] kidney disease was noted to be presumed [...] 2/2 renal function CAD: non-obstructive CAD on [facility] 2018. 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 His [place] kidney disease was noted to be presumed [...] 2/2 renal function CAD: non-obstructive CAD on [facility] 2018. - continue home aspirin 81mg [...] 5.05 (H) 11/19/2018 Kevin Sage MD, SERA Machine Burrer of Clinical Medicine [facility]plant [facility] Progression of [...] Lora Colón RN, MSN, CCM, CMCN Clinical Email Marketing Executive- R10 Transplant #[phone] Made introductory visit with patient. Provided emotional and spiritual support. Patient shared about: - Source of Rosemary: Camping/Fishing/Family - Spirituality/Presybeterian Affiliation: raised [employer] - Family Support/history - Experience with illness/hospital course - Hopes for healing/future Knee Bolter provided: - Supportive presence - Active listening - Validation of feelings/emotions - Pledged prayer Patient encouraged to request a biopharmaceutical rep as needed. Chaplains are available in-house 24 hours a day and 7 days a week. For urgent matters in [facility], please page [phone]. If the request is not urgent, please enter a consult. Consults are responded to within 24 hours. Senior Staff Knee Bolter Angie Singh Mdiv, [facility] [place] [phone] [email or web address] 22/06 On-call Kirk: [phone] 22/06 Pager ,[facility], and Brock Maciel Pager [phone] 09/02/23 1113 Clinical Encounter Type Visited With Patient Visit Type Introduction Pastoral Time Spent 15 min Referral Other (See Comment) (rounding) Spiritual Assessment Spiritual Observation Spirituality helpful Emotional Observation Coping well Hope Observation Specific hope focus Support Observation By Family Interventions Provided Active listening;Supportive presence Facilitated Verbalization of feelings Explored Expectations Planishing Hammer Operator Education Planishing Hammer Operator Service Available Yes Educated Patient Outcomes Patient Outcomes Reduced distress Plan of Care Continue Visiting PRN NUTRITION RISK SCREENING NOTE Nutrition Plan of Care: 1. Continue current diet order. 2. No oral supplements warranted at this time. 3. Monitor for significant weight changes. Monitor GI and skin integrity. 4. Monitor and encourage po intakes with goal of average po being 100%. 5. boiler/chiller technician to follow. George Styles is a 53 y.o. 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 His [place] kidney disease was noted to be presumed hepatorenal syndrome. His post-transplant course was noteworthy for nephrostomy tube (05/17/2022-09/10/2022) due to concern for ureteral stone. He presents as a direct admission for fever, cough, for infectious workup. Pt unavailable and information obtained via chart review Mutual Fund Accountant Screening Pt's appetite is good. Pt with [...] time. Will continue to monitor. 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 His [place] kidney disease was noted to be presumed [...] 2/2 renal function CAD: non-obstructive CAD on [facility] 2018. - continue home aspirin 81mg [...] as outlined above. Kevin Sage MD Pager [phone] Summary: Pharmacy Med Rec Department of Pharmacy [...] Provider: Zuly Bruno NP Pharmacy: [facility] Other Comments: Patient reported his Last Home Dose of mycophenolate & tacrolimus was on 08/28/23 at 0900. Patient reported he was taking Bactrim and benzonatate for fevers and a cough he was having. Please feel free to contact me with any further questions. Name: Heidy Chatman Phone #: [phone] Date/Time: 09/01/2023 2:01 PM Time Spent: 15 minutes Associated attestation - Matt Kramer RPh,PharmD - 09/01/2023 2:28 PM EDT Department of Pharmacy Admission Medication Reconciliation Note Patient: George Styles Room/Bed: 1062/A I have reviewed the home medication list with the Medical Records Technician. All changes to the home medication list have been updated in [facility]. Updated DINKEY BRAKEMAN Med List: Prior to Admission Medications Prescriptions [...] with any further questions. Name: Matt Kramer lydia,PharmD Phone #: [phone] Date/Time: 09/01/2023 2:28 PM Transplant Infectious Disease [...] crypto antigen, EBV PCR -follow pending histo, [id number] labs These recommendations were discussed with the primary team. Transplant ID (Team 3) will continue to follow. Please Epic message or page [phone] with questions. 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 His [place] kidney disease was noted to be presumed [...] 2/2 renal function CAD: non-obstructive CAD on [facility] 2018. - continue home aspirin 81mg [...] 5.05 (H) 11/19/2018 Kevin Sage MD, SERA Machine Burrer of Clinical Medicine [facility] Comprehensive Transplant Center Discharge Planning [...] Yes Name and Contact information: Gian Styles ([phone]) Reviewed and Updated in Demographics? : Yes [...] patient on Anticoagulation? : No [id number] [place] [address] - [address] [facility] [address] [place] [address] Head Pumper Does the patient or medical claims representative express financial concerns? : No Employed?: Disabled Coping/Stress Concerns about patient s coping and stress?: No Concerns about patient s caregiver s coping and stress?: No Values and Beliefs Cultural or sikh practices that may impact discharge planning and/or [...] Plan 1. Identified self and role as Email Marketing Executive. 2. Confirmed and updated demographics and treatment team. 3. Email Marketing Executive will continue to follow with medical team/pt for any other additional discharge needs. Kasandra DON RN [facility] [phone] *Please note I am float and work Thursday and Thursday every other week. Please call [phone] for assist in my absence. Internal Medicine Daily Progress Note Patient: George Styles, 1970, [id number] Physician: Evan Kelly MD, PGY-1, TM1 service [...] RRR, normal S1, S2, no M/R/G. No JNESEN. 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 His [place] kidney disease was noted to be presumed [...] 2/2 renal function CAD: non-obstructive CAD on [facility] 2018. - continue home aspirin 81mg [...] 5.05 (H) 11/19/2018 Kevin Sage MD, MADISONN Machine Burrer of Clinical Medicine [facility] Comprehensive Transplant Center Internal Medicine Daily Progress Note Patient: George Styles, 1970, [id number] Physician: Laurel Serrano MD, PhD, PGY-3, TM1 [...] heart without pulmonary edema. Clear lungs. Assessment/Plan: Georeg Styles is a 53 y.o. 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 His [place] kidney disease was noted to be presumed [...] losartan 50mg BID CAD: non-obstructive CAD on [facility] 2018. - continue home aspirin 81mg daily, atorvastatin 20mg daily Gout: continue home allopurinol 200mg daily BPH: continue home flomax 0.4mg daily DVT PPX: SQH Code Status: Full Code Disposition: Pending clinical course. Anticipate eventual discharge home. Discussed with team and attending, Kevin Sage MD, on rounds. Signed, Laurel Serrano MD, PhD documented in this encounter [facility] 09-10-2023 [...] a sleep doctor. You will need to forklift picker the oxygen concentrator when you leave [...] on healthy foods. documented in this encounter [facility] 09-01-2023 Consult note Associated Order (s): IP CONSULT TO PULMONOLOGY Pulmonary Medicine Inpatient Consultation Reason for Consultation: bronch for infectious workup Requesting Physician: Dr. Sage Pulmonary Attending Physician: Dr. Diaz CURRENT HOSPITALIZATION: Admit Date: 08/28/2023 [facility] Hospital LOS: 4 days Impression/Recommendations: George [...] short period of time. 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 Other histories as documented in the [...] ill contacts. He traveled to [place] to [facility] in May. REVIEW OF SYSTEMS A [...] GUIDANCE 05/17/2022 Surgeon: Enzo Heart DO; [facility] INTERVENTIONAL RADIOLOGY (VIR) LIVER TRANSPLANT, ORTHOTOPIC N/A 04/12/2020 Laterality: N/A; Surgeon: LU Palma; Location: [facility] SAME DAY SURGERY MAIN OR KIDNEY TRANSPLANT W/O [place]OG[place] NEPHRECTOMY N/A 04/12/2020 Laterality: N/A; Surgeon: LU Palma; Location: [facility] SAME DAY SURGERY MAIN OR OTHER SURGICAL [...] Alamo MD I can be reached via [place] secure message (preferred) or Pager #[phone] documented in this encounter [facility] 08-28-2023 History and physical note Images from the original note were not included. Internal Medicine Admission History & Physical Patient: George Styles, 1970, [id number] Physician: Aric Turner MD, PGY1, Pager #[phone], TM service Date of face to face [...] So he went to see the transplant arts manager. He was found elevated Cr and asked [...] Appetite is ok now. Urine is about 8177-0268 ml every day. 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 His [place] kidney disease was noted to be presumed [...] Urinary histoplasmosis - PJP, candid PCR - Glue Spreader transplant ID Acute Kidney Injury with Kidney [...] losartan 50mg BID CAD: non-obstructive CAD on [facility] 2018. - continue aspirin 81mg daily, [...] Pierson, Luisa Steven, Renee Rivera, Daisha Max Dog Day Care Attendant: José Miguel Garnica All Txt: 04/13/2020 (Kidney), [...] results found for: CYCLOSPORIN , CYCLOSPORIN2 , [id number] , CYCLORAND No results found for: SIROLIMUS [...] Rest as above. Kevin Sage MD Pager [phone] documented in this encounter [facility] 08-28-2023 History of Present illness Narrative Images from the original note were not included. 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 Dog Day Care Attendant: Anayeli Burt Date of Liver Transplant: 04/13/2020 (Kidney), 04/13/2020 (Liver) 3 years 4 months post Liver/Kidney Transplant Primary Disease: Hypertensive Nephrosclerosis Transplant Change Release Manager: Erma Roe/ Daisha Max Primary Care [...] and faMOTIdine === None Specified Preferred Lab: [facility] Change in lab frequency / [...] Last 3 Encounters: 08/28/23 106/41 06/12/23 146/77 02/17/23 142/75 Pulse Readings from Last 3 Encounters: [...] every 12 hours. ADDITIONAL INFORMATION: None Specified, [id number] [place] [address] - [address] [facility] [address] [facility] [address] [facility] [address] [facility] [address] [facility] [place] [address] [id number] [place] [address] [address] [facility] [address] [facility] [address] [facility] [address], [place] [address] [place] [address] ROS and SCREEN: Chest Pain: negative Cough: [...] PHYSICIAN: I saw George Styles at the [facility] on 08/28/2023. Patient is a 53 y.o. 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 His [place] kidney disease was noted to be presumed [...] GUIDANCE 05/17/2022 Surgeon: Enzo Heart DO; Location: [facility] INTERVENTIONAL RADIOLOGY (VIR) LIVER TRANSPLANT, ORTHOTOPIC N/A 04/12/2020 Laterality: N/A; Surgeon: LU Palma; Location: [facility] DAY [facility] MAIN OR KIDNEY TRANSPLANT W/O OHOGAMI[place] NEPHRECTOMY N/A 04/12/2020 Laterality: N/A; Surgeon: LU Palma; Location: [facility] SAME DAY SURGERY MAIN OR OTHER SURGICAL [...] you have any questions. Steve Latham MD laborer cutting tool Division of Nephrology [facility] documented in this encounter [facility] 08-28-2023 Instructions Mainor Busby RN - 08/28/2023 2:15 PM EDT - Admission for fevers, cough, and night sweats documented in this encounter [facility] 08-19-2023 History of Present illness Narrative [facility] RX OUTREACH ADVANCED: Call Information: Date and Time of Contact: 08/19/2023 2:52 PM Method of Contact: By Phone Contact Type: Prescriptions Contactor: [facility] Contactee: Patient Shipping/Pickup: Medicare B Refill?: No Medication Name: Tacro 0.5mg Delivery Method: Air Delivery Location: Home Signature Required: No Mailing/Pickup Date: 08/25/2023 Shipping Address: [address] [place] [address] Contact Info: Specialty ([place]) [phone] [facility] [phone] [facility] [phone] [facility] [phone] Bedside Delivery ([facility]) [phone] documented in this encounter [facility] 06-12-2023 History of Present illness Narrative Images from the original note were not included. George Styles is a 53 y.o. 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 No longer follows with a local arts manager. History of Present Illness: Since George was [...] and lab results. Rebeca Gutierrez MSN, RN, HOSPICE CARE SALES CONSULTANT-BC, CCTN Certified Nurse Practitioner Comprehensive Transplant Center [facility] [address] [facility] [address] documented in this encounter [facility] 06-12-2023 Instructions JEANNA Hess - 06/12/2023 3:00 PM EDT No change in immunosuppression. documented in this encounter [facility] 06-10-2023 History of Present illness Narrative [facility] OUTREACH ADVANCED: Call Information: Method of Contact: By Phone Contact Type: Prescriptions Contactor: [facility] OP Contactee: Patient Contact Outcome: Left message Shipping/Pickup: Medication Name: Mycophenolate sod 180 mg Contact Info: Specialty ([place]) [phone] [place] [phone] [facility] [phone] [place] [phone] Bedside Delivery ([facility]) [phone] [facility] RX OUTREACH ADVANCED: Call Information: Date and Time of Contact: 06/12/2023 9:43 AM Method of Contact: By Phone Contact Type: Prescriptions Contactor: [facility] OP Contactee: Patient Contact Outcome: Left message and Follow-up Shipping/Pickup: Medicare B Refill?: No Medication Name: Myco 180 Contact Info: Specialty ([place]) [phone] [place] [phone] [facility] [phone] David [phone] Bedside Delivery ([facility]) [phone] [facility] RX OUTREACH ADVANCED: Call Information: Date and Time of Contact: 06/12/2023 10:08 AM Method of Contact: By Phone Contact Type: Prescriptions Contactor: [facility] Contactee: Patient Shipping/Pickup: Medicare B Refill?: No Medication Name: Mycophenolate 180mg DR Delivery Method: Air Delivery Location: Home Signature Required: No Mailing/Pickup Date: 06/17/2023 Shipping Address: [address] [place] [address] Contact Info: Specialty ([place]) [phone] [facility] [phone] [facility] [phone] [place] [phone] Bedside Delivery ([facility]) [phone] documented in this encounter [facility] 03-12-2023 History of Present illness Narrative [facility] RX OUTREACH ADVANCED: Call Information: Date and Time of Contact: 03/12/2023 10:34 AM Method of Contact: By Phone Contact Type: Prescriptions Contactor: [facility] Contactee: Patient Shipping/Pickup: Medicare B Refill?: No Medication Name: Mycophenoloate sod 360 mg prednisone 5mg Delivery Method: Air Delivery Location: Home Signature Required: No Mailing/Pickup Date: 03/16/2023 Shipping Address: [address] [place] [place] [address] Contact Info: Specialty ([place]) [phone] [place] [phone] [facility] [phone] [place] [phone] Bedside Delivery ([facility]) [phone] [facility] RX OUTREACH ADVANCED: Call Information: [...] No Mailing/Pickup Date: 03/19/2023 Shipping Address: [address] [facility] [address] Contact Info: Specialty ([place]) [phone] [place] [phone] [facility] [phone] David [phone] Bedside Delivery ([facility]) [phone] documented in this encounter [facility] 03-10-2023 History of Present illness Narrative [facility] RX OUTREACH ADVANCED: Call Information: Date and Time of Contact: 03/10/2023 12:00 PM Method of Contact: By Phone Contact Type: Prescriptions Contactor: [facility] Contactee: Patient Contact Outcome: Left message and Call back later Shipping/Pickup: Medication Name: Mycophenolate ; Tacrolimus Contact Info: Specialty ([place]) [phone] [facility] [phone] [facility] [phone] David [phone] Bedside Delivery ([facility]) [phone] documented in this encounter [facility] 03-10-2023 History of Present illness Narrative [facility] RX OUTREACH ADVANCED: Call Information: Date and Time of Contact: 03/10/2023 12:00 PM Method of Contact: By Phone Contact Type: Prescriptions Contactor: [facility] Contactee: Patient Contact Outcome: Left message and Call back later Shipping/Pickup: Medication Name: Mycophenolate ; Tacrolimus Contact Info: Specialty ([place]) [phone] [facility] [phone] [facility] [phone] David [phone] Bedside Delivery ([facility]) [phone] [facility] RX OUTREACH ADVANCED: Call Information: Date and Time of Contact: 03/12/2023 10:32 AM Method of Contact: By Phone Contact Type: Prescriptions Contactor: [facility] Contactee: Patient Contact Outcome: Left message Shipping/Pickup: Medication Name: Mycophenolate sodium (MYFORTIC) 180 MG Tab tacrolimus 0.5 mg Contact Info: Specialty ([place]) [phone] [facility] [phone] [facility] [phone] David [phone] Bedside Delivery ([facility]) [phone] documented in this encounter [facility] 01-16-2023 History of Present illness Narrative -Referring Provider for today's consult: Daisha Max DO -Primary Care Provider: Zuly Bruno History of Present Illness George Styles is a 52 y.o. male who presents to [facility] Trans[facility] Hepatology Clinic today for follow-up of [...] GUIDANCE 05/17/2022 Surgeon: Enzo Heart DO; Location: [facility] INTERVENTIONAL RADIOLOGY (VIR) LIVER TRANSPLANT, ORTHOTOPIC N/A 04/12/2020 Laterality: N/A; Surgeon: LU Palma; Location: [facility] SAME DAY SURGERY MAIN OR KIDNEY TRANSPLANT W/O OHOGAMIUT NEPHRECTOMY N/A 04/12/2020 Laterality: N/A; Surgeon: LU Palma; Location: [facility] SAME DAY SURGERY MAIN OR OTHER SURGICAL [...] 0.3 12/29/2022 Explant Pathology Pathologic Diagnosis A. [place] liver, orthotopic liver transplant resection (1458 gram): [...] A/P with IV contrast (06/27/2022): 1. Both [place] kidneys are atrophic with improvement in right-sided [...] frequent nighttime urination, etc). Daisha Max DO Machine Burrer Gastroenterology, Hepatology and Nutrition [facility] Pager: [phone] Images from the original note were not included. 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 Dog Day Care Attendant: Anayeli Burt Date of Liver Transplant: 04/13/2020 (Kidney), 04/13/2020 (Liver) 2 years, 8 months post Liver/Kidney Transplant Primary Disease: Hypertensive Nephrosclerosis Transplant Change Release Manager: Steve Latham Primary Care physician: Zuly [...] levels: No results found for: CYCLOSPORIN, CYCLOSPORIN2, [id number], CYCLORAND No components found for: CYCLOSPORINE, 2HR [...] hours. ADDITIONAL INFORMATION: None Specified [id number] [place] [address] - [address] [facility] [address] [facility] [address] [facility] [address] [facility], [address] [facility] [address] [id number] [place] [address] [address] [facility] [address] [facility] [address] [facility] [address], [place] [address] [place] [phone] ROS and SCREEN: Chest Pain: negative Cough: [...] PHYSICIAN: documented in this encounter [facility] 01-16-2023 Instructions José Miguel Garnica RN - 01/16/2023 9:40 AM EST - Labs Every 2 months - Discuss night time urination with your PCP - Schedule Colonoscopy through PCP - Follow up in 1 year documented in this encounter [facility] 09-10-2022 History of Present illness Narrative UROLOGY [...] and no hydronephrosis. Some reflux up the [place] right ureter but good drainage of both transplant and [place] ureter to the bladder. Nephrostomy tube was [...] transplant, orthotopic (N/A, 04/12/2020); kidney transplant w/o [place] nephrectomy (N/A, 04/12/2020); and placement nephrostomy catheter [...] x 4, Normal strength. No edema. Skin: [place], warm, and dry. There are no rashes [...] and no hydronephrosis. Some reflux up the [place] right ureter but good drainage of both transplant and [place] ureter to the bladder. Nephrostomy tube was [...] assisted off the table and escorted to asset management analyst where they made a follow up. [...] to have transplant ureter with anastomosis to [place] right ureter. Nephrostogram without filling defects and no hydronephrosis. Some reflux up the [place] right ureter but good drainage of both transplant and [place] ureter to the bladder. Nephrostomy tube was [...] transplant, orthotopic (N/A, 04/12/2020); kidney transplant w/o [place] nephrectomy (N/A, 04/12/2020); and placement nephrostomy catheter [...] x 4, Normal strength. No edema. Skin: [place], warm, and dry. 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 Nephrostomy tube placed [...] needed. documented in this encounter [facility] 06-27-2022 History and physical note Patient was evaluated in clinic as a nurse visit. Please refer to Rena Brewster's note. [facility] Work Phone: 06-27-2022 History and physical note Patient was evaluated in clinic as a nurse visit. Please refer to Rena Brewster's note. documented in this encounter [facility] 06-27-2022 History of Present illness Narrative TEACHING REGARDING TX NEPH COMPLETED-NEPH TUBE SITE DRY AND INTACT-CLEAR YELLOW URINE IN THE BAG-INSTRUCTED ABOUT FLUSHING, BAG CHANGING ETC. NUMEROUS QUESTIONS ASKED AND ANSWERED-VERBALIZED UNDERSTANDING documented in this encounter [facility] 06-18-2022 Note EXAMINATION: CT ABD/ [...] mass or enlargement. KIDNEYS: Marked atrophy of [place] kidneys. Transplant right pelvic kidney with percutaneous [...] by: MÓNICA JIMENEZ Date: 2022-06-18 13:53 [facility] 06-12-2022 Instructions Anayeli Christianson RN - 06/12/2022 3:21 PM EDT Do not take apart/disrupt nephrostomy tube system. Call Interventional Radiology and/or on-call transplant nurse [phone] for instruction if need to flush (clot or decreased flow). Take cipro 500mg, one tablet, twice per day for 14 days documented in this encounter [facility] 06-12-2022 History of Present illness Narrative Images from the original note were not included. 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 Dog Day Care Attendant: Anayeli Burt Date of Liver Transplant: 04/13/2020 (Kidney), 04/13/2020 (Liver) 2 year, 1 months post Liver/Kidney Transplant Primary Disease: Hypertensive Nephrosclerosis Transplant Change Release Manager: Steve Latham Primary Care physician: Zuly [...] Non-obstructing kidney stone in renal graft at [facility]. Percutaneous Neph Tube placed Images from the original note were not included. Nursing Assessment In Clinic (see Clinic Prep Sheet for additional information) Patient is accompanied to clinic today by: self Did patient require a wheelchair or medical transport for appointment: no Did trouble locator test desk confirm current address and insurance information is [...] LAB AND PHARMACY: None Specified [facility] [place] [address] - [address] [address] [facility] [address] [facility] [place] [address] [facility]/pharmacy [facility][id number] [place] [address] [address] [facility] [address] [place] [id number] [facility] [address], [address] [place] [address] ROS and SCREEN: Chest Pain: negative Cough: negative SOB: negative Abd Pain: negative Nausea: positive Vomiting: negative Diarrhea: negative Constipation: negative Dysuria: positive Edema: negative Tremors: negative Headaches: negative Wound issues: negative Pt has neph tube w clear yellow urine. States he had a small clot that he dislodged QUESTIONS OR CONCERNS TO ADDRESS WITH PHYSICIAN: I saw George Styles at the [facility] on 06/12/2022. Patient is a 52 y.o. 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 His [place] kidney disease was noted to be presumed [...] GUIDANCE 05/17/2022 Surgeon: Enzo Heart DO; Location: [facility] INTERVENTIONAL RADIOLOGY (VIR) LIVER TRANSPLANT, ORTHOTOPIC N/A 04/12/2020 Laterality: N/A; Surgeon: LU Palma; Location: [facility] SAME DAY SURGERY MAIN OR KIDNEY TRANSPLANT W/O OHOGAMIUT NEPHRECTOMY N/A 04/12/2020 Laterality: N/A; Surgeon: LU Palma; Location: [facility] SAME DAY SURGERY MAIN OR OTHER SURGICAL [...] me if you have any questions. Steve S. Yeison, MD laborer cutting tool Division of Nephrology [facility] documented in this encounter [facility] 06-04-2022 Instructions TATI GROVE - 06/04/2022 11:04 AM EDT Thank you for joining us for your neph tube follow up. We recommend routine exchange every 8-10 weeks. Please reach out at [phone] when it is time to set your next routine exchange. Thank you IR clinic documented in this encounter [facility] 06-04-2022 History of Present illness Narrative Met [...] understanding. documented in this encounter [facility] 05-20-2022 Note Formatting of this n ote [...] his discharge. Leon Cook RN [facility] 05-20-2022 Miscellaneous Notes Patient discharged. AVS printed [...] provide teaching before his discharge Leon GALLARDO #[id number] Leon Coko RN Afternoon assessment completed at this time. [...] Interdisciplinary Rounds/Family Conf Outcome: Ongoing Discussed with [facility] re: possible urine culture performed [...] with questions. Evan Byrd MD Urology, PGY-2 #[id number] I certify that this patient requires inpatient [...] RN documented in this encounter [facility] 05-20-2022 Note Formatting of this n ote [...] discharge/transition of care. Outcome: [facility]quate [facility] Note Formatting of this n ote might be different from the original. Anne Dillard MD R10 Rm 1006 Jensen Orellana Please let's have a clear order on how the nephrostomy site dressing need to be changed when the patient goes home so we provide teaching before his discharge Leon RN #[id number] Leon Cook RN [facility] 05-20-2022 History of Present illness Narrative Images from the original note were not included. [facility] Note: [facility] received the following discharge prescription(s): Medication reconciliation was completed with comparison to discharge reconciliation report. The prescription(s) will be delivered to the patient's bedside on 05/20/22. Total cost is $0. Yanira Her RPh,PharmD Specialty ([place]) [phone] [facility] [phone] [facility] [phone] David [phone] [facility] [phone] Bedside Delivery ([facility]) [phone] Attending I saw George Styles at the [facility] on 05/19/2022. I saw and independently [...] Nishant Gamez MD 17 g at 05/18/22 1959 senna (SENOKOT) tablet 8.6 mg 8.6 mg [...] Daily Progress Note Patient: George Styles, 1970, [id number] Physician: Liam Julian MD, PGY-3, Pager #[phone], [id number] Subjective/Interval History: No acute events overnight. Passed [...] Saldana MD Division of Hospital Medicine Pager [phone] Attending I saw George Styles at the [facility] on 05/18/2022. I saw and independently [...] Daily Progress Note Patient: George Styles, 1970, [id number] Physician: Nishant Gamez MD, PGY2, Pager #[phone], [email or web address] Subjective/Interval History: Nephrostomy tube placed yesterday with a lot of urine output and significant improvement in creatinine. Objective: Vitals: 05/18/220 BP: 190/86 Pulse: 83 Resp: 18 Temp: 98.4 F (36.9 C) O2 Device: room air (05/18/220) Flow (L/min): 3 (05/17/22 1719) Gen: NAD, [...] have stablized for this to be medical claims representative. Daya (Nunu) Jeff Saldana MD Division of Hospital Medicine Pager [phone] Internal Medicine Daily Progress Note Patient: George Styles, 1970, [id number] Physician: Nishant Gamez MD, PGY2, Pager #[phone], [email or web address] Subjective/Interval History: Worsening creatinine this morning with [...] Saldana MD Division of Hospital Medicine Pager [phone] Attending I saw George Styles at the [facility] on 05/17/2022. I saw and independently [...] 5 mg 5 mg Oral Daily Evan Benentt MD 5 mg at 05/16/22 1018 aspirin [...] at 05/17/22 0546 Rate Verify at 05/17/22 05 faMOTIdine (PEPCID) tablet 20 mg 20 mg [...] Q12H Nishant Gamez MD 17 g at 05/16/22 2048 senna (SENOKOT) tablet 8.6 mg 8.6 mg [...] of chart and discussion with treatment team, Email Marketing Executive has not identified needs at this time. [...] follow. Introduced self and role of the biopharmaceutical rep to patient. Provided emotional and spiritual support and the patient responded by sharing their experience and discussed the following: - Spirituality/Presybeterian Affiliation: As a kid attended [employer] but not a strong identity now - Family support - pt's brothers live close by [place] provided: - Supportive presence - Active listening - Validation of feelings/emotions Patient encouraged to request a biopharmaceutical rep as needed. Chaplains are available in-house 24 hours a day and 7 days a week. For urgent matters in [facility], please page [phone]. If the request is not urgent, please enter a consult. Consults are responded to within 24 hours. Angie Singh Mdiv, [facility] [place] [address] Knee Bol[place] [facility] Knee Bolter Kirk [phone] [email or web address] 22/06 East Pager [phone] 22/06 Pager ,BS, and Brock [...] of life story;Identifying support system Explored Expectations Planishing Hammer Operator Education Planishing Hammer Operator Service Available Yes Educated Patient Outcomes Patient Outcomes Articulated purpose/meaning Plan of Care Continue Visiting PRN Internal Medicine Daily Progress Note Patient: George Styles, 1970, [id number] Physician: Nishant Gamez MD, PGY2, Pager #[phone], [email or web address] Subjective/Interval History: Overall feeling okay this morning. 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 [...] Supervision Transfer Assessment: Sit to Stand Transfer [place] Level: Sit->Stand: independent Skilled Intervention/Details: Sit->Stand: x1 from EOB Stand to Sit Transfer [place] Level: Stand->Sit: supervision Assistive Device: Stand->Sit: armed chair Skilled Rationale: Controlled descent for sitting, Verbal cues Gait/Functional Mobility: Gait Assessment [place] Level: Gait: supervision Assistive Device: Gait: gait belt Gait Distance (feet): 200 Gait Deviations Identified: decreased grace, decreased step length, decreased stride length Gait Skilled Rationale: verbal, upright posture Skilled Intervention/Details - Gait: Pt with steady gait without LOB or complaints of SOB. Stairs: Stairs Assessment [place] Level: Stair Negotiation: stand-by assist Assistive Device: Stair Negotiation: gait belt, left rail (ascending) Number of stairs: 9 Stairs Skilled Rationale: reciprocal pattern Outcome Score(s): CURRENT [facility] Basic Mobility Inpatient Short Form Turning over in bed: 4 - No Assistance Sitting/standing from chair: 4 - No Assistance Moving from lying on back to sittin - No Assistance Moving to and from bed to chair: 4 - No Assistance Walk in hospital room: 3 - A Little Assistance Climbing 3-5 steps with a railin - A Little Assistance CURRENT [facility] Mobility Raw Score: 22 CURRENT [facility] Mobility Functional Limitation/Modifier: 20.91% Currently Impaired [...] community) 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 IADL History IADLs: independent Primary Language: Bruneian Home Management Skills: independent Meal Prep Responsibility: [...] Assessment: Transfer Assessment: Sit to Stand Transfer [place] Level: Sit->Stand: independent Skilled Rationale: Cues for increased safety Skilled Intervention/Details: Sit->Stand: x1 EOB Stand to Sit Transfer [place] Level: Stand->Sit: supervision Assistive Device: Stand->Sit: gait belt, armed chair Skilled Rationale: Verbal cues, Controlled descent for sitting, Cues for increased safety Skilled Intervention/Details: Stand->Sit: cues for hand placement and controlled descent Functional Mobility: Functional Mobility [place] Level: Functional Mobility/Gait: stand-by assist Assistive Device: Functional Mobility/Gait: gait belt Functional Mobility Distance: Distance needed for limited community mobility Functional Mobility Deficits: Activity tolerance, Balance, Decreased step length, Generalized weakness Functional Mobility Skilled Rationale: Verbal cues, Facilitate postural control Skilled Intervention/Details - Functional Mobility/Gait: cues for upright posture Outcome Score(s): CURRENT -[facility] Daily Activity Inpatient Short Form Putting on/Taking Off Lower Body Clothin - A Little Assistance Bathin - A Little Assistance Toiletin - A Little Assistance Putting on/Taking Off Upper Body Clothin - No Assistance Groomin - No Assistance Eatin - No Assistance CURRENT AM-[facility] Activity Raw Score: 21 CURRENT AM-PAC Activity [...] DAY SURGERY MAIN OR KIDNEY TRANSPLANT W/O OHOGAMIUT NEPHRECTOMY N/A 04/12/2020 Laterality: N/A; Surgeon: LU [...] by: Mel Norman OT, OTR/L License #: [id number] pager # [phone] 05/20/2022 Upon discontinuation of Acute Care Occupational Therapy Services or patient discharge from the hospital this note represents the current Occupational Therapy Discharge Summary. documented in this encounter [facility] 05-20-2022 Hospital course Narrative Discharge Summary Name: [...] during his recent hospital stay at [facility]. As you may know, George Styles, [...] Saldana MD Division of Hospital Medicine p: [phone] f: [phone] CONSULTS DURING ADMISSION: IP CONSULT TO SURGERY - UROLOGY IP CONSULT TO NEPHROLOGY - TRANSPLANT (MEDICINE) IP CONSULT TO INTERVENTIONAL RADIOLOGY IP CONSULT TO PHYSICAL THERAPY IP CONSULT TO OCCUPATIONAL THERAPY IP CONSULT TO PHARMACY BEDSIDE DISCHARGE MED DELIVERY IMAGING / PROCEDURES / RESULTS: Should you require further information or copies of results or reports please contact Medical Information Management @ [phone] LABS AT TIME OF DISCHARGE: Lab Results [...] AT DISCHARGE: Zuly Bruno [address] [facility] / [place] [address] MEDICATIONS: Discharge Orders CT ABDOMEN/PELVIS WITHOUT CONTRAST [...] CAPS Generic drug: docusate Follow-up: Zuly Bruno, SNAP SHEARER [address] [facility] [address] Schedule an appointment as soon as possible for a visit Follow-up appointment with your, primary care physician within 7-10 days, after discharge. [address] [facility] [address] Follow up The department of urology will call you with a follow up appointment. LU Ovalle [address] 11th Floor [facility] [address] Follow up Please make a follow up appointment with Dr. Latham's office. Upcoming Appointments (up to five)-Some appointments for Medical Center outpatient clinics or diagnostic testing locations are not displayed below Provider Department Dept Phone 06/04/2022 10:40 AM IR LEWIS MACIEL [facility] Interventional Radiology Clinic [phone] 06/27/2022 1:30 PM [facility] Department of Radiology Arrive at: Arrive to First Floor Registration Desk [phone] 06/27/2022 2:40 PM Ryan Yepez [facility] [place] Arrive at: Arrive to 2nd Floor, Registration [address] 10/31/2022 1:00 PM Steve Latham [facility] Transplant [facility] [phone] 01/16/2023 9:40 AM TRANSPLANT HEPATOLOGY 3, [facility] Transplant [facility] [phone] Associated attestation - Daya Saldana MD - [...] Saldana MD Division of Hospital Medicine Pager [phone] documented in this [facility] [...] be changed by Interventional Radiology. Please call [phone] to schedule this appointment and with any questions or concerns you may have regarding the nephrostomy tube. If you have questions or concerns, please call Interventional Radiology at SOMEONE FROM INTERVENTIONAL RADIOLOGY WILL CALL YOU FOR A FOLLOW UP IN THE CLINIC Giulia Cavazos RN Nurse Coordinator Interventional Radiology Interventional Radiology Outpatient scheduling documented in this encounter [facility] 05-19-2022 Note Formatting of this n ote [...] Interdisciplinary Rounds/Family Conf Outcome: Ongoing [facility] 05-19-2022 Note Formatting of this n ote might be different from the original. Discussed with [facility] re: possible urine culture performed at their facility. However, based on urinalysis completed at that time, which was only notable for hematuria, culture was not performed and sample no longer feasible for culture. Liam Julian MD Internal Medicine/Pediatrics, PGY-3 [facility] 05-18-2022 Note Formatting of this n ote might be different from the original. 2003: IHIS message sent to Dr Justyn Wen, regarding patient passing a small kidney stone, about the size of pea. notified. Stone left in strainer in pt bathroom. 0500: IHIS message sent to Dr Justyn Wen, regarding pt BP 174/77. [facility] 05-18-2022 Note Formatting of this n ote [...] discharge/transition of care. Outcome: Ongoing [facility] 05-18-2022 Note Formatting of this n ote [...] NS should instead be used. [facility] Work Phone: 05-18-2022 Note Formatting of this n ote might be different from the original. IHIS chat sent to Dr Tray Quintana, regarding pt BP 190/86. Pt complaining of pain at site of neph tube. PRN pain medication given per order parameters. Pt denies any other symptoms at this time. notified and aware. [facility] 05-17-2022 Note Formatting of this n ote might be different from the original. At 0900, I rounded with Dr. Gamez and Dr. Saldana. At that time I checked Mr. Styles's vital signs. His pulse oximeter was low and he was tachypneic. Verbal order at bedside to put nasal cannula on starting at 2liters oxygen and to provide incentive spirometer. [facility] Note Formatting of this n ote might be different from the original. Interventional Radiology procedure completed with IR Attending Dr. Heart / Dr. Le of percutaneous right nephrostomy tube placement transplant kidney 10.2 Fr Griffin acosta Pt tolerated procedure with moderate sedation local numbing agent . Transported to inpatient after phase I recovery. Post procedure orders in place. [facility] 05-16-2022 Note Formatting of this n ote might be different from the original. At 1530, I text chavad Kaitlynn Gomez MD that patient has only had 25ml urine output in matias this afternoon. [facility] 05-16-2022 Note Formatting of [...] with questions. Evan Byrd MD Urology, PGY-2 #[id number] [facility] Work Phone: 05-16-2022 Note Formatting of this n ote might be different from the original. I certify that this patient requires inpatient services at this time. I anticipate the expected length of stay will include at least two midnights. Inpatient services are due to the following medical concerns Obstructive kidney stone. Plans for post hospitalization care will be discharge to home. [facility] 05-16-2022 Consult note Associated Order (s): IP CONSULT TO NEPHROLOGY - TRANSPLANT (MEDICINE) I saw George Styles at the [facility] on 05/16/2022. Reason for Consultation: kidney [...] he was given flomax and sent home. Marion better but noticed more pain and decreased [...] and recommendations. Maxi Pringle MD [facility] Work Phone: 05-16-2022 Consult note Associated Order (s): IP CONSULT TO NEPHROLOGY - TRANSPLANT (MEDICINE) I saw George Styles at the [facility] on 05/16/2022. Reason for Consultation: kidney [...] he was given flomax and sent home. Marion better but noticed more pain and decreased [...] states he went to his local ED [place] and he was put on Flomax and he did improve. Pt states last night he was unable to void with severe right sided abd pain. Pt states nausea and no vomiting or fevers. Pt states he went back to [place] ED at 0100 and they placed a [...] orthotopic (N/A, 04/12/2020); and kidney transplant w/o [place] nephrectomy (N/A, 04/12/2020). 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 The [place] kidneys are progressively atrophic bilaterally compared to [...] of 06/14/2020 are no longer present. The [place] distal right ureter is decompressed beyond this [...] with surgical history for renal graft and [place] right urinary drainage, as a discrete ureteroneocystostomy is not identified, and the graft may be draining via a ureteroureterostomy. Urology consultation recommended. 3. The [place] kidneys are bilaterally atrophic, with right renal sinus calcifications consistent with nonobstructing right [place] renal calculi up to 6 mm. Normal [...] PGY-3, Department of Urologic Surgery Pager #: [phone] Associated attestation - Ryan Yepez MD - [...] Relationship/Rapport: care explained choices provided [facility] 05-16-2022 Note Formatting of this n ote might be different from the original. [facility] to [facility], a dual RN initial assessment of skin condition was performed by Kallie Lorenzana RN and Sheri Arguelles RN. Skin Assessment: WDL Jose Score: 20 LDA Added:N Kallie Lorenzana RN [facility] 05-15-2022 Emergency department Note Report given to Kallie RN at [facility] 05-15-2022 Emergency department Note Report given to [...] diagnosed Thursday and was [facility]. He went back to that ED [...] DAY SURGERY MAIN OR KIDNEY TRANSPLANT W/O OHOGAMIUT NEPHRECTOMY N/A 04/12/2020 Laterality: N/A; Surgeon: LU [...] Schneider MD Resident 05/15/222030 Pt arrives from [facility] with kidney stones. Pt states he had right lower abd pain and right flank pain with blood in his urine since Thursday. Pt states he went to his local ED [place] and he was put on Flomax and he did improve. Pt states last night he was unable to void with severe right sided abd pain. Pt states nausea and no vomiting or fevers. Pt states he went back to [place] ED at 0100 and they placed a matias and CT scan completed and multiple kidney stones noted. [facility] he had liver and kidney transplant in 03/2020. documented in this encounter [facility] 05-15-2022 History and physical note Internal Medicine Admission History & Physical Patient: George Styles, 1970, [id number] Physician: Evan Bennett MD, PGY1, Pager #[phone], GM 4 service Date of face to [...] DAY SURGERY MAIN OR KIDNEY TRANSPLANT W/O OHOGAMIUT NEPHRECTOMY N/A 04/12/2020 Laterality: N/A; Surgeon: LU [...] erythema: Skin: No jaundice or rash Neuro: risk assessor 3-7, 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 Strength grossly [...] dilation of the calyces may represent narrowing/partial [id number] ofthe ureter and mild hydronephrosis or sequela [...] History & Physical Patient: George Styles, 1970, [id number] Physician: Evan Bennett MD, PGY1, Pager #[phone], GM 4 service Date of face to [...] 04/12/2020 Laterality: N/A; Surgeon: LU Palma; Location: [facility] SAME DAY SURGERY MAIN OR KIDNEY TRANSPLANT W/O OHOGAMIUT NEPHRECTOMY N/A 04/12/2020 Laterality: N/A; Surgeon: LU [...] erythema: Skin: No jaundice or rash Neuro: risk assessor 3-7, 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 Strength grossly [...] dilation of the calyces may represent narrowing/partial [id number] ofthe ureter and mild hydronephrosis or sequela [...] states he went to his local ED [place] and he was put on Flomax and he did improve. Pt states last night he was unable to void with severe right sided abd pain. Pt states nausea and no vomiting or fevers. Pt states he went back to [place] ED at 0100 and they placed a [...] orthotopic (N/A, 04/12/2020); and kidney transplant w/o [place] nephrectomy (N/A, 04/12/2020). 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 The [place] kidneys are progressively atrophic bilaterally compared to [...] of 06/14/2020 are no longer present. The [place] distal right ureter is decompressed beyond this [...] with surgical history for renal graft and [place] right urinary drainage, as a discrete ureteroneocystostomy is not identified, and the graft may be draining via a ureteroureterostomy. Urology consultation recommended. 3. The [place] kidneys are bilaterally atrophic, with right renal sinus calcifications consistent with nonobstructing right [place] renal calculi up to 6 mm. Normal [...] PGY-3, Department of Urologic Surgery Pager #: [phone] Associated attestation - Ryan Yepez MD - [...] future before surgical intervention --may continue flomax [facility] Work Phone: 05-15-2022 Emergency department Note Advised Dr Schneider concerning no urine output via matias catheter. [facility] 05-15-2022 Physician Emergency department [...] care. Gian Villatoro MD 05/15/222003 [facility] Work Phone: 05-15-[address] Schneider made aware of only 30 ml urine via matias since arrival to room. [facility] 05-15-2022 Physician Emergency department Note dEPARTMENT of [...] 04/12/2020 Laterality: N/A; Surgeon: LU Palma; Location: [facility] MAIN OR KIDNEY TRANSPLANT W/O [place] NEPHRECTOMY N/A 04/12/2020 Laterality: N/A; Surgeon: LU Palma; Location: [facility] MAIN OR OTHER SURGICAL [...] any incorrections. Matt Schneider MD Resident 05/15/222030 [facility] Work Phone: 05-15-2022 Emergency department Note Pt arrives from [facility] with kidney stones. Pt states he had right lower abd pain and right flank pain with blood in his urine since Thursday. Pt states he went to his local ED [place] and he was put on Flomax and he did improve. Pt states last night he was unable to void with severe right sided abd pain. Pt states nausea and no vomiting or fevers. Pt states he went back to [place] ED at 0100 and they placed a matias and CT scan completed and multiple kidney stones noted. Pt sent to [facility] ED as he had liver and kidney transplant in 03/2020. [facility] 03-14-2022 History of Present illness Narrative [facility]RE[facility]: Call Information: Date and Time of Contact: 03/14/2022 5:01 PM Method of Contact: By Phone Contact Type: Prescriptions Contactor: [facility] Contactee: Patient Shipping/Pickup: Medicare B Refill?: No Medication Name: Mycophenolate sodium 180 mg and tacrolimus 0.5 mg Delivery Method: Air Delivery Location: Home Signature Required: No Mailing/Pickup Date: 03/17/2022 Shipping Address: [address] [place] [address] [address] Contact Info: Specialty (Yanci) [phone] Jakob [phone] [facility] [phone] [facility] [phone] Bedside Delivery ([facility]) [phone] documented in this encounter [facility] 06-14-2021 History of Present illness [...] Goal Progress: Satisfactory Contact Info: Specialty (Yanci) [phone] Jakob [phone] [place] [phone] David [phone] Bedside Delivery ([facility]) [phone] [facility]: Call Information: Date [...] Location: Home Signature Required: Yes Shipping Address: [address] [place] [address] Contact Info: Specialty (Derry) [phone] Jakob [phone] [facility] [phone] David [phone] Bedside Delivery ([facility]) [phone] [facility] [...] hydronephrosis- Primary [facility] FAYE (acute kidney injury) Acute kidney failure, unspecified [facility] Diagnosis Other hydronephrosis- Primary -donor kidney transplant recipient Kidney replaced by transplant [facility] Diagnosis Other hydronephrosis [facility] Diagnosis 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) Encounter for screening for malignant neoplasm of prostate Special screening for malignant neoplasm of prostate [facility] Diagnosis Abnormal blood chemistry- Primary Other abnormal blood chemistry Liver transplant recipient Kidney replaced by transplant Immunosuppressed status Unspecified disorder of immune mechanism Aftercare following organ transplant [facility] Diagnosis Kidney replaced by transplant- Primary [facility] Diagnosis Immunosuppressed status- Primary Unspecified disorder of immune mechanism Kidney replaced by transplant Aftercare following organ transplant High risk medication use Encounter for long-term (current) use of other medications Other general symptoms and signs Abnormal blood chemistry Other abnormal blood chemistry Hypertension secondary to other renal disorders [facility] Diagnosis Histoplasmosis- Primary [...] Fever Fever, unspecified [facility] Diagnosis Bilateral lower extremity edema- Primary 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) Atherosclerosis 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) Atherosclerosis of aorta Obesity (BMI 30-39.9) DARLENE (obstructive sleep apnea) Obstructive sleep apnea (adult) (pediatric) Tremor Abnormal involuntary movements Immunocompromised (CMS/HCC) Unspecified immunity deficiency Primary hypertension (CMS/HCC) Unspecified essential hypertension Shortness of breath documented in this encounter [facility]* Diagnosis Pleural effusion [...] pre-operative examination [facility] Diagnosis Heart failure, diastolic, acute- Primary Acute diastolic heart failure [facility]narrative)* Consultation (Routine) - New Request Specialty Diagnoses / Procedures Referred By Contac t Referred To Contact Interventional Radiology Diagnoses Hydronephrosis due to obstruction of ureteral orifice Daya Saldana MD [address] [place] [phone] Referral ID Status Reason Start Date Expiration Date V isits Requested Visits Authorized [id number] New Request 05/18/2022 06/12/2023 1 1 * Radiology (Emergency) - New Request Specialty Diagnoses / Procedures Referred By Contac t Referred To Contact Procedures US RENAL TRANSPLANT SCAN Dyaa Saldana MD [address] [place] [phone] Referral ID Status Reason Start Date Expiration Date V isits Requested Visits Authorized [id number] New Request 05/16/2022 06/10/2023 1 1 * Consultation (Routine) - New Request Specialty Diagnoses / Procedures Referred By Contac t Referred To Contact Urology Diagnoses FAYE (acute kidney injury) Ryan Yepez MD [address] [place] [address] [address] [place] [phone] Referral ID Status Reason Start Date Expiration Date V isits Requested Visits Authorized [id number] New Request 05/16/2022 06/10/2023 1 1 * MRI/CAT Scan (Routine) - New Request Specialty Diagnoses / Procedures Referred By Contac t Referred To Contact Diagnoses FAYE (acute kidney injury) Procedures CT ABDOMEN/PELVIS WITHOUT CONTRAST CHG CT SCAN,ABDOMENT AND PELVIS,W/O CONTRAST Ryan Yepez MD [address] [facility] [address] [place] [address] Referral ID Status Reason Start Date Expiration Date V isits Requested Visits Authorized [id number] New Request 05/16/2022 06/10/2023 1 1 * (Routine) - Pending Review Specialty Diagnoses / Procedures Referred By Contac t Referred To Contact Procedures PLATELET MONITORING PER PROTOCOL Daya Saldana MD [address] [place] [address] Referral ID Status Reason Start Date Expiration Date V isits Requested Visits Authorized [id number] Pending Review 05/15/2022 06/09/2023 1 1 * (Routine) - Pending Review Specialty Diagnoses / Procedures Referred By Contac t Referred To Contact Procedures DVT/VTE RISK ASSESSMENT Daya Saldana MD [address] [place] [address] Referral ID Status Reason Start Date Expiration Date V isits Requested Visits Authorized [id number] Pending Review 05/15/2022 06/09/2023 1 1 * (Routine) Specialty Diagnoses / Procedures Referred By Contac t Referred To Contact Evan Bennett MD [address] [place] [address] Referral ID Status Reason Start Date Expiration Date Visits Re quested Visits Authorized * (Routine) Specialty Diagnoses / Procedures Referred By Contdaniel t Referred To Contact Evan Bennett MD [address] [place] [address] Referral ID Status Reason Start Date Expiration Date Visits Re quested Visits Authorized [facility] for referral (narrative)* Consultation (Routine) - New Request Specialty Diagnoses / Procedures Referred By Deni t Referred To Contact Sleep Medicine Diagnoses Hypoxia Kevin Sage MD [address] [place] [address] Referral ID Status Reason Start Date Expiration Date V isits Requested Visits Authorized [id number] New Request 09/10/2023 10/04/2024 1 1 * MRI/CAT Scan (Routine) - New Request Specialty Diagnoses / Procedures Referred By Deni t Referred To Contact Diagnoses Histoplasmosis Procedures CT CHEST WITHOUT CONTRAST CHG DIAGNOSTIC COMPUTED TOMOGRAPHY THORAX W/O Kevin Zarate MD [address] [place] [address] Referral ID Status Reason Start Date Expiration Date V isits Requested Visits Authorized [id number] New Request 09/10/2023 10/04/2024 1 1 * Radiology (Routine) - New Request Specialty Diagnoses / Procedures Referred By Deni t Referred To Contact Procedures US RENAL TRANSPLANT SCAN Steve Latham MBBS [address] [place] [address] Referral ID Status Reason Start Date Expiration Date V isits Requested Visits Authorized [id number] New Request 08/29/2023 09/22/2024 1 1 * (Routine) - New Request Specialty Diagnoses / Procedures Referred By Contac t Referred To Contact Procedures PLATELET MONITORING PER PROTOCOL Steve Latham MBBS [address] [place] [address] Referral ID Status Reason Start Date Expiration Date V isits Requested Visits Authorized [id number] New Request 08/28/2023 09/21/2024 1 1 * (Routine) - New Request Specialty Diagnoses / Procedures Referred By Contac t Referred To Contact Procedures DVT/VTE RISK ASSESSMENT Steve Latham MBBS [address], [place] [address] Referral ID Status Reason Start Date Expiration Date V isits Requested Visits Authorized [id number] New Request 08/28/2023 09/21/2024 1 1 [facility] Instructions * Patient Instructions - Christin Elizabeth APRN-ROB - 10/19/2018 9:21 AM EST You should take an extra dose of the lactulose as needed so that you are having 3-4 bowel movementsdaily. You should start the chemical dependency counseling as soon as possible. If you have questions, call the transplant social director Fidelina Pierson. in this encounter* Patient Instructions - Sophie Cary, SAMI - 10/12/2018 11:09 AM EST You have been seen in the pre-transplant evaluation clinic by Dr. Restrepo and Sophie Cary. Sophie Cary is your pre-patient assessment coordinator she can be reached at [phone] at any time for questions during the pre-transplant process. Your evaluation is complete pendin. Abdominal ultrasound. 2. 6 minute walk test. 3. Cardiology evaluation. Additionally, your him manager will recommend testing to screen for coronary artery disease. This will be scheduled for you after your cardiology visit. 4. Your coordinator will be requesting record from your last dental visit, colonoscopy and EGD. 5. Please work to complete social work recommendations. Your social director will be contacting you to follow up on your progress. 6. You have also been referred for a kidney transplant. An appointment will be scheduled for you sari evaluated in the kidney transplant clinic after you have satisfied requirements dictated by [employer] company. Once your testing is complete, we [...] ___ Other Name MRN * Christin Elizabeth, HOSPICE CARE SALES CONSULTANT-SNAP SHEARER - 10/19/2018 9:00 AM EST Formatting of this note may be different from the original. History of Present Illness: Chief Complaint Patient presents with Follow-up Cirrhosis George Styles is a 48 y.o. male who presents to the [facility] Gastroenterology Clinic today regarding his diagnosis/chief complaint(s) of Cirrhosis secondary to ETOH, with ESRD follows with Dr. Orr. Currently undergoing evaluation for liver/kidney transplant. Has been seen in transplant clinic for eval. Still undergoing pre testing. Diagnosed in April 2018. Last drink was immediately prior to hospital admission in [place] for ACLF. Hospital course notable for ARF [...] (human immunodeficiency virus infection); Hyperlipidemia; Hyperthyroidism; Hypothyroidism; IL (myocardial infarction); Migraine; DARLENE (obstructive sleep apnea); [...] kidney transplant evaluation. Pt was AOx3. Transplant Ice Cream Freezer role/function was explained and reviewed. The patient was informed that the results of this assessment will be shared with the referring provider and the transplant team. The patient verbalized understanding of this information. The [facility] psychosocial assessment consent form has been explained to patient and has been signed. Pt is completing this evaluation with brother (David) in the Outpatient setting. [facility] educated pt on the benefits of completing/filing advanced directives and resources were offered. Pt identifies with [place] faith. Pt confirms being a [place] Citizen. Pt.'s primary language is Bruneian. Pt confirms the ability to read,write, and understand [place]ian. Pt denies potential donors. 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 Pt reports [...] well as referred him to pre patient assessment coordinator. Pt and support demonstrated moderate understanding [...] minutes away. 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 He confirms being comfortable asking for help. [...] in 2010, he was employed by the [employer]. He has access to SSDI payment (SSDI [...] DUI charge [facility] in [place], court ordered treatment in 2001 and in [...] by patient from his primary medical provider- [facility] patient was noted as attending an [...] He was provided with local AOD resources, [facility] AOD informational packet. Pt was referred [...] new visit Date of service: 10/12/2018 -Referring furniture builder for today's consult: -Primary Care Provider: Zuly Bruno CC: Chief Complaint Patient presents with Liver Recipient Evaluation History of Present Illness George Styles is a 48 y.o. male who presents to the [facility] liver transplant surgery clinic today for evaluation [...] EST Timed up and go 9.9 seconds Equine Breeder Left 52.8 pounds Right 44.9 pounds Waist circ 38.5 inches * Sophie Cary, SAMI - 10/12/2018 10:00 AM EST Formatting of this note may be different from the original. Patient George Styles ([id number]), accompanied by his brother, was seen on [...] call if there are any further questions. Spohie DON, RN Liver Dog Day Care Attendant Etiology: ETOH HCC: No ETOH: Yes Last [...] Orr MD [address] [address] Status Reason Specialty Diagnoses / Procedures Referred By Contact Referred To Contact New Request Diagnoses Cirrhosis of liver with ascites, unspecified hepatic cirrhosis type Procedures US ABDOMEN RUQ/LIVER/GB Yovani Orr MD [address] [address] Specialty Diagnoses / Procedures Referred By Contac t Referred To Contact Diagnoses FAYE (acute kidney injury) Procedures CT ABDOMEN/PELVIS WITHOUT CONTRAST CHG CT SCAN,ABDOMENT AND PELVIS,W/O CONTRAST Central Scheduling [address] [place] [phone] Referral ID Status Reason Start Date Expiration Date V isits Requested Visits Authorized [id number] Pending Review 05/16/2022 06/10/2023 1 1 Specialty Diagnoses / Procedures Referred By Contac t Referred To Contact Diagnoses Other hydronephrosis Procedures FLUORO IMAGING FOR UROLOGY Ryan Yepez MD [address] [facility] [address] [place] [address] Referral ID Status Reason Start Date Expiration Date V isits Requested Visits Authorized [id number] New Request 07/07/2022 08/01/2023 1 1 Specialty Diagnoses / Procedures Referred By Contac t Referred To Contact Procedures DIRECT ADMIT REQUEST Steve Latham MBBS [address] [place] [address] Referral ID Status Reason Start Date Expiration Date V isits Requested Visits Authorized [id number] New Request 08/28/2023 09/21/2024 1 1 Specialty Diagnoses / Procedures Referred By Contac t Referred To Contact Radiology Diagnoses DARLENE (obstructive sleep apnea) Primary hypertension (CMS/HCC) Bilateral lower extremity edema Shortness of breath Procedures Echocardiogram 2D complete Zuly Bruno NP [address] [place] [address] Referral ID Status Reason Start Date Expiration Date Visits Requested Visits Authorized [id number] Incomplete Perform Procedure 01/06/2024 07/04/2024 1 1 Specialty Diagnoses / Procedures Referred By Contac t Referred To Contact Procedures US IMAGING REGIONAL ANESTHESIA Kehinde Gutierrez MD [address] [place] [address] Referral ID Status Reason Start Date Expiration Date V isits Requested Visits Authorized [id number] New Request 01/22/2024 02/15/2025 1 1 Specialty Diagnoses / Procedures Referred By Contac t Referred To Contact Cardiovascular Medicine Diagnoses Heart failure, diastolic, acute Kelvin Pacheco MD, MBBS [address] [place] [address] Referral ID Status Reason Start Date Expiration Date V isits Requested Visits Authorized [id number] New Request 01/20/2024 02/13/2025 1 1 Specialty Diagnoses / Procedures Referred By Contac t Referred To Contact Procedures US ABDOMEN LIVER DOPPLER US ABDOMEN LIVER TRANSPLANT DOPPLER Timothy Joseph MD [address] [facility] [address] [place] [address] Referral ID Status Reason Start Date Expiration Date V isits Requested Visits Authorized [id number] New Request 01/16/2024 02/09/2025 1 1 Specialty Diagnoses / Procedures Referred By Contac t Referred To Contact Procedures DVT/VTE RISK ASSESSMENT Kelvin Pacheco MD, MBBS [address] [place] [address] Referral ID Status Reason Start Date Expiration Date V isits Requested Visits Authorized [id number] New Request 01/16/2024 02/09/2025 1 1 Specialty Diagnoses / Procedures Referred By Contac t Referred To Contact Procedures PLATELET MONITORING PER PROTOCOL Kelvin Pacheco MD, MBBS [address] [place] [address] Referral ID Status Reason Start Date Expiration Date V isits Requested Visits Authorized [id number] New Request 01/16/2024 02/09/2025 1 1 Referral ID Status Reason Start Date Expiration Date V isits Requested Visits Authorized [id number] New Request 01/16/2024 02/09/2025 1 1 Specialty Diagnoses / Procedures Referred By Contac t Referred To Contact Procedures ECG Kelvin Pacheco MD, MBBS [address] [place] [address] Referral ID Status Reason Start Date Expiration Date V isits Requested Visits Authorized [id number] New Request 01/16/2024 02/09/2025 1 1 Advance Directives No Advanced Directives Records FoundDocuments on File Type Date Recorded 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 Advance Directives and Living Will Power of Ammonia Print Operator Latest Code Status on File Code [...] Code 05/10/2020 4:17 AM 05/15/2022 10:11 PM Date Activated Date Inactivated Comments 01/20/2024 11:06 AM Date Activated Date Inactivated Comments 01/16/2024 1:48 AM 01/20/2024 11:06 AM Date Activated Date Inactivated Comments 08/28/2023 8:47 PM 01/16/2024 1:48 AM Date Activated Date Inactivated Comments 05/15/2022 10:11 PM 08/28/2023 8:47 PM Date Activated Date Inactivated Comments 05/10/2020 4:17 AM 05/15/2022 10:11 PM Summary [...] Orr MD [address] [address] Status Reason Specialty Diagnoses / Procedures Referre d By Contact Referred To Contact Denied Diagnoses Alcoholic cirrhosis, unspecified whether ascites present Pre-transplant evaluation for liver transplant Procedures MRI ABDOMEN WITH CONTRAST DC MRI, ABDOMEN W/CONTRAST Yovani Orr MD [address] [address] Reason Comments Liver Recipient Evaluation Status Reason Specialty Diagnoses / Procedures Referred By Contact Referred To Contact New Request Transplant / Transplant Surgery Procedures PRE NEW PATIENT Yovani Orr MD [address] [address] Alfredito Restrepo MD [address] [place] [address] Reason Comments Reschedule Reason Comments Outside Medical Records Request Reason Comments Social Work Follow-up Reason Comments Kidney Stone Specialty Diagnoses / Procedures Referred By Contac t Referred To Contact Diagnoses Obstructing kidney stone, s/p kidney transplant 2019 Daya Saldana MD [address] [place] [address] [facility] [address] [place] [address] Referral ID Status Reason Start Date Expiration Date Visits Re quested Visits Authorized [id number] 1 1 Reason Comments Follow-up Reason Comments Kidney Recipient Follow-up Liver Recipient Follow-up Reason Comments Consult Reason Comments New Patient Hospital follow up Specialty Diagnoses / Procedures Referred By Contac t Referred To Contact Urology Diagnoses hosp fu with [address] prior Procedures NEW TO DOC/RET PATIENT Zuly Bruno CNP [address] [place] [address] Ryan Yepez MD [address] [facility] [address] [place] [address] Referral ID Status Reason Start Date Expiration Date Visits Re quested Visits Authorized [id number] Closed 06/27/2022 07/22/2023 1 1 Specialty Diagnoses / Procedures Referred By Contac t Referred To Contact Diagnoses FAYE (acute kidney injury) Procedures CT ABDOMEN/PELVIS WITHOUT CONTRAST CHG CT SCAN,ABDOMENT AND PELVIS,W/O CONTRAST Central Scheduling [address] [place] [phone] Referral ID Status Reason Start Date Expiration Date V isits Requested Visits Authorized [id number] Pending Review 05/16/2022 06/10/2023 1 1 Reason Comments Follow-up Specialty Diagnoses / Procedures Referred By Contac t Referred To Contact Urology Diagnoses 1 week fu post NT clamp Procedures RETURN PATIENT Zuly Bruno CNP [address] [place] [address] Ryan Yepez MD [address] [place] [address] [address] [place] [phone] Referral ID Status Reason Start Date Expiration Date Visits Requested Visits Authorized [id number] Authorized - 07/07/2022 08/01/2023 2 2 Specialty Diagnoses / Procedures Referred By Contac t Referred To Contact Diagnoses Other hydronephrosis Procedures FLUORO IMAGING FOR UROLOGY Ryan Yepez MD [address] [place] [address] [address] [place] [address] Referral ID Status Reason Start Date Expiration Date V isits Requested Visits Authorized [id number] New Request 07/07/2022 08/01/2023 1 1 Specialty Diagnoses / Procedures Referred By Contac t Referred To Contact Urology Diagnoses 1 week fu post NT clamp Procedures RETURN PATIENT Zuly Bruno, SNAP SHEARER [address] [place] [address] Ryan Yepez MD [address] [place] [address] [address] [place] [address] Referral ID Status Reason Start Date Expiration Date Visits Re quested Visits Authorized [id number] Closed 07/07/2022 08/01/2023 2 2 Reason Comments Liver Recipient Follow-up Reason Comments Kidney Recipient Follow-up Reason Comments Kidney Recipient Follow-up Specialty Diagnoses / Procedures Referred By Contac t Referred To Contact Diagnoses Kidney replaced by transplant Steve Latham MBBS [address] [place] [address] [facility] [address] [place] [address] Referral ID Status Reason Start Date Expiration Date Visits Re quested Visits Authorized [id number] 1 1 Specialty Diagnoses / Procedures Referred By Contac t Referred To Contact Diagnoses Pleural effusion on right PNEUMONIA- HX LIVER AND KIDNEY TRANSPLANT Kevin Sage MD [address] [place] [address] [facility] [address] [place] [address] Referral ID Status Reason Start Date Expiration Date Visits Re quested Visits Authorized [id number] 1 1 Reason Comments New Patient Specialty Diagnoses / Procedures Referred By Contac t Referred To Contact Cardiovascular Medicine Diagnoses Heart failure, diastolic, acute Kelvin Pacheco MD, MBBS [address] [place] [address] Referral ID Status Reason Start Date Expiration Date Visits Requested Visits Authorized [id number] Authorized - 01/20/2024 02/13/2025 5 5 (unrecognized sect ion and content) No Status Records FoundNo Status Records FoundNo Status Records FoundNo Status Records FoundNo Status Records FoundNo Status Records Found INFORMATION SOURCE (unrecogn ized section and content) DATE CREATED AUTHOR 01/07/2020 [facility] DATE CREATED AUTHOR AUTHOR'S ORGANIZ ATION 01/27/2021 [facility] DATE CREATED AUTHOR AUTHOR'S ORGANIZ ATION 05/11/2023 [facility] DATE CREATED AUTHOR AUTHOR'S ORGANIZ ATION 04/19/2024 [facility] EPIC DATE CREATED AUTHOR AUTHOR'S ORGANIZ ATION 05/25/2024 [facility] DATE CREATED AUTHOR AUTHOR'S ORGANIZ ATION 06/03/2024 [facility] Care Teams (unrecognized sec tion and content) Mucker Cofferdam Relationship Specialty Start Date End Date Zuly Bruno, ROB PCP - General 07/19/18 Comfort Rivera [facility] [address] [place] [address] Pharmacist Pharmacist 05/16/20 Angel Carpio, [facility],PharmD Pharmacist Pharmacist 05/16/20 Te Leigh [facility],PharmD Pharmacist Pharmacist 01/09/21 Mucker Cofferdam Relationship Specialty Start Date End Date Zuly Bruno, SNAP SHEARER PCP - General 07/19/18 Comfort Rivera, [address] [place] [id number] Pharmacist Pharmacist 05/16/20 Angel Carpio, [facility],PharmD Pharmacist Pharmacist 05/16/20 Te Leigh [facility],PharmD Pharmacist Pharmacist 01/09/21 Mucker Cofferdam Relationship Specialty Start Date End Date Zuly Bruno, SNAP SHEARER PCP - General 07/19/18 Mucker Cofferdam Relationship Specialty Start Date End Date Zuly Bruno CNP PCP - General 07/19/18 Mucker Cofferdam Relationship Specialty Start Date End Date Zuly Bruno CNP PCP - General 07/19/18 Mucker Cofferdam Relationship Specialty Start Date End Date Zuly Bruno CNP PCP - General 07/19/18 Mucker Cofferdam Relationship Specialty Start Date End Date Zuly Bruno CNP PCP - General 07/19/18 Mucker Cofferdam Relationship Specialty Start Date End Date Zuly Bruno SNAP SHEARER PCP - General 07/19/18 Mucker Cofferdam Relationship Specialty Start Date End Date Zuly Bruno SNAP SHEARER PCP - General 07/19/18 Mucker Cofferdam Relationship Specialty Start Date End Date Zuly Bruno SNAP SHEARER PCP - General 07/19/18 Mucker Cofferdam Relationship Specialty Start Date End Date Zuly Bruno CNP PCP - General 07/19/18 Mucker Cofferdam Relationship Specialty Start Date End Date Zuly Bruno CNP PCP - General 07/19/18 Mucker Cofferdam Relationship Specialty Start Date End Date Zuly Bruno CNP PCP - General 07/19/18 Mucker Cofferdam Relationship Specialty Start Date End Date Zuly Bruno CNP PCP - General 07/19/18 Mucker Cofferdam Relationship Specialty Start Date End Date Zuly Bruno CNP PCP - General 07/19/18 Mucker Cofferdam Relationship Specialty Start Date End Date Zuly Bruno CNP PCP - General 07/19/18 Mucker Cofferdam Relationship Specialty Start Date End Date Zuly Bruno CNP PCP - General 07/19/18 Evan White DO [facility] [address] [place] [address] Infectious Disease Infectious Disease 09/09/23 Mucker Cofferdam Relationship Specialty Start Date End Date Zuly Bruno CNP PCP - General 07/19/18 Evan White DO [facility] [address] [place] [address] Infectious Disease Infectious Disease 09/09/23 Mucker Cofferdam Relationship Specialty Start Date End Date Zuly Bruno CNP PCP - General 07/19/18 Evan White [place] [facility] [place] [address] Infectious Disease Infectious Disease 09/09/23 Mucker Cofferdam Relationship Specialty Start Date End Date Momo Verdugo MD PCP - General Family Medicine 05/21/23 Mucker Cofferdam Relationship Specialty Start Date End Date Momo Verdugo MD PCP - General Family Medicine 05/21/23 Mucker Cofferdam Relationship Specialty Start Date End Date Momo Verdugo MD PCP - General Family Medicine 05/21/23 Mucker Cofferdam Relationship Specialty Start Date End Date Zuly Bruno CNP PCP - General 07/19/18 Evan White DO [address] [place] [address] Infectious Disease Infectious Disease 09/09/23 Mucker Cofferdam Relationship Specialty Start Date End Date Zuly Bruno CNP PCP - General 07/19/18 Evan White [place] [facility] [place] [address] Infectious Disease Infectious Disease 09/09/23 Mucker Cofferdam Relationship Specialty Start Date End Date Zuly Bruno CNP PCP - General 07/19/18 Evan White DO [facility] [address] [place] [address] Infectious Disease Infectious Disease 09/09/23 Mucker Cofferdam Relationship Specialty Start Date End Date Zuly Bruno CNP PCP - General 07/19/18 Evan White DO [facility] [place] [address] Infectious Disease Infectious Disease 09/09/23 Mucker Cofferdam Relationship Specialty Start Date End Date Zuly Bruno CNP PCP - General 07/19/18 Evan White DO [address] [place] [address] Infectious Disease Infectious Disease 09/09/23 Mucker Cofferdam Relationship Specialty Start Date End Date Zuly Bruno CNP PCP - General 07/19/18 Mucker Cofferdam Relationship Specialty Start Date End Date Zuly Bruno CNP PCP - General 07/19/18 Mucker Cofferdam Relationship Specialty Start Date End Date Zuly [...] RN) 0931 (Given - Provider: Leon Cook, SAMI) [...] 1723 ($$New Bag$$ - Provider: Leon Cook, RN)1747 (Rate/Dose Verify - Provider: Leon Cook [...] Hampton RN)1558 (Given - Provider: Mel Hampton RN)213 (Given - Provider: Carolyn Isaac RN) 0804 (Given - Provider: Josey Braun, SAMI)1754 (Given - Provider: Josey Braun, RN)2058 (Given - Provider: Carolyn Isaac RN) 0742 (Given - Provider: Leon Cook, RN)1502 (Given - Provider: Loen Cook, RN) losartan (COZAAR) tablet 50 mg [...] at 0700 0814 ($$New Bag$$ - Provider: eMl Hampton RN)1030 (Rate/Dose Verify - Provider: Carolyn [...] over 4 Hours, ONCE, 1 dose, On 05/20/22 at 0700 0742 ($$New Bag$$ - Provider: [...] Patient with symptoms)1958 (Given - Provider: Carolyn Isaac, RN) 113 (Not Given - Provider: Josey Braun RN - Reason: Patient/family refused)2100 (Not Given - Provider: Carolyn Isaac RN - Reason: Patient/family refused - Comment: pt had multiple BM today) 31 (Given - Provider: Leon Cook, RN)2099 (Canceled Entry - Provider: System Discharge [...] RN) 08 (Given - Provider: Josey Braun RN)2059 (Given - Provider: Carolyn Isaac RN) 0931 [...] Carolyn Isaac RN)1737 (Paused - Provider: Carolyn Isaca RN)1807 (Restarted - Provider: Carolyn Isaac RN)182 (Paused - Provider: Carolyn Isaac RN)182 (Restarted - Provider: Carolyn Isaac RN)192 (Rate/Dose Verify - Provider: Carolyn Isaac RN) 2058 (Stopped - Provider: Carolyn Isaac RN) PRN Medication Order 05/18/2022 05/19/2022 05/20/2022 acetaminophen (TYLENOL) tablet 650 mg 650 mg, Oral, EVERY 6 HOURS NEEDED, Starting on Marta 05/15/22 at 2311, Until Thu05/20/22 at 211, Mild Pain, Moderate Pain, Maximum dose of [...] Hampton, SAMI) 0825 (Given - Provider: Josey Braun RN)2104 [...] 81 mg, Oral, DAILY, First dose on Sat 23 at 0900, Until Discontinued 075 (Given - [...] Until Discontinued 2035 (Given - Provider: Girish uNnez RN) 2024 (Given - Provider: Carolyn Plasencia [...] Girish Nunez, SAMI)1805 (Given - Provider: Terra Heart, SAMI) 0610 [...] at 0900, Until Discontinued, On hold since [facility] 01/21/2024 at 0802 until manually unheld 0802 [...] Lyman RN) 0841 (Given - Provider: Terra Heart, [...] Provider: Erica Ross RN)1218 (Stopped - Provider: iDllon Lyman RN) Mycophenolate sodium (MYFORTIC) tablet DR [...] 0846 (Given - Provider: Terra Heart RN)105 (REUNION [...] 0842 (Given - Provider: Erica Ross RN) 105 ([facility] Hold - Provider: [...] - Reason: Transfer to a Procedural area)141 ([facility] Unhold - Provider: [...] Automatic Transfer)1806 (Given - Provider: Terra Heart, RN)2353 (Given - Provider: Tati Ahmadi, SAMI) alum/mag [...] 10 mg/mL injection (CANCELED) NEEDED, Starting on 01/22/24 at 1248, Until Thu01/22/24 at 1306, Intra-op/Intra-Proc [...] / Vomiting, 1st line for Nausea/Vomiting 1053 (JAN Hold - Provider: Automatic Transfer [...] Terra Heart RN)1312 (Given - Provider: Terra Sly, RN) Polyethylene glycol (MIRALAX) packet 17 g [...] BE BASED ON THE PRIMARY CLINICAL RECORDS. [facility] [address] [facility]. provides no warranty or guarantee of the accuracy or completeness of information in this document.
[2024-06-06 07:00] LABS: Basophils Percent Auto 0.8 % (0.2-2.0); Eosinophils Absolute Auto 0.2 10^3/uL (0.0-0.7); Eosinophils Percent Auto 4.1 % (0.9-7.0); Hematocrit 46.3 % (42.0-54.0); Hemoglobin 15.3 g/dL (14.0-18.0); Immature Granulocytes Abs Auto 0.01 10^3/uL (0.00-0.03); Immature Granulocytes Pct Auto 0.2 % (0.0-0.5); Lymphocytes Absolute Auto 1.5 10^3/uL (1.2-3.8); Lymphocytes Percent Auto 28.8 % (20.5-60.0); Mean Corpuscular Hemoglobin 29.9 pg (25.9-34.0); Mean Corpuscular Volume 90.4 fL (80.0-94.0); Mean Platelet Volume 9.6 fL (9.5-13.5); Monocytes Absolute Auto 0.5 10^3/uL (0.3-0.8); Monocytes Percent Auto 9.2 % (1.7-12.0); Neutrophils Absolute Auto 2.9 10^3/uL (1.4-6.5); Neutrophils Percent Auto 56.9 % (43.0-75.0); Platelet Count 225 10^3/uL (150-450); Red Blood Count 5.12 10^6/uL (4.70-6.10); Red Cell Distribution Width 12.2 % (11.0-15.0); White Blood Count 5.1 10^3/uL (4.0-11.0)
[2024-06-06 07:47] LABS: Creatinine Urine Random 88.04 mg/dL (20.00-300.00); Protein Creatinine Ratio Urine 0.14; Total Protein Urine Random 12.3 mg/dL (<=11.9)
[2024-06-06 08:21] LABS: Alanine Aminotransferase 22 U/L (16-63); Albumin Level 4.1 g/dL (3.4-5.0); Alkaline Phosphatase 116 U/L (46-116); Anion Gap 12.5; Aspartate Amino Transferase 18 U/L (15-37); BUN Creatinine Ratio 15.7; Bilirubin Direct 0.3 mg/dL (0.0-0.2); Bilirubin Total 1.4 mg/dL (0.2-1.0); Calcium 9.5 mg/dL (8.5-10.1); Carbon Dioxide 26.4 mmol/L (21.0-32.0); Chloride 104 mmol/L (98-107); Estimated GFR (African America >60 (>=60); Estimated GFR (Non-African Ame >60 (>=60); Gamma Glutamyl Transpeptidase 18 U/L (15-85); Glucose 98 mg/dL (74-106); Magnesium 2.3 mg/dL (1.8-2.4); Potassium 3.9 mmol/L (3.5-5.1); Sodium 139 mmol/L (136-145)
[2024-06-08 02:07] LABS: Tacrolimus (FK506), Blood 1.9 ng/mL (2.0-20.0)
== END 2024-06-06 06:33 | disposition home or self-care (01) ==
LOC: LAB 06:34
PROVIDERS: PCP Nurse Practitioner
DX: R79.9 Abnormal finding of blood chemistry, unspecified (principal); Z94.0 Kidney transplant status; Z94.4 Liver transplant status; Z48.298 Encounter for aftercare following other organ transplant
CPT/HCPCS: 36415; 80048; 80197; 82042; 82247; 82248; 82570; 82977; 83735; 84075; 84100; 84156; 84450; 84460; 85025

== ENCOUNTER 2024-06-13 06:35 | Outpatient (OUT) | payer MEDICARE, MEDICAID, SELFPAY ==
[2024-06-13 07:20] LABS: Basophils Percent Auto 0.6 % (0.2-2.0); Eosinophils Absolute Auto 0.2 10^3/uL (0.0-0.7); Eosinophils Percent Auto 3.8 % (0.9-7.0); Hemoglobin 15.3 g/dL (14.0-18.0); Immature Granulocytes Abs Auto 0.01 10^3/uL (0.00-0.03); Immature Granulocytes Pct Auto 0.2 % (0.0-0.5); Lymphocytes Absolute Auto 1.4 10^3/uL (1.2-3.8); Lymphocytes Percent Auto 28.4 % (20.5-60.0); Mean Corpuscular HGB Conc 32.6 g/dL (29.9-35.2); Mean Corpuscular Hemoglobin 29.7 pg (25.9-34.0); Mean Corpuscular Volume 91.3 fL (80.0-94.0); Monocytes Absolute Auto 0.4 10^3/uL (0.3-0.8); Monocytes Percent Auto 7.8 % (1.7-12.0); Neutrophils Absolute Auto 2.9 10^3/uL (1.4-6.5); Neutrophils Percent Auto 59.2 % (43.0-75.0); Platelet Count 245 10^3/uL (150-450); Red Blood Count 5.15 10^6/uL (4.70-6.10); Red Cell Distribution Width 12.1 % (11.0-15.0)
[2024-06-13 07:44] LABS: Creatinine Urine Random 158.61 mg/dL (20.00-300.00)
[2024-06-13 08:13] LABS: Alanine Aminotransferase 19 U/L (16-63); Albumin Level 3.8 g/dL (3.4-5.0); Alkaline Phosphatase 116 U/L (46-116); Anion Gap 12.6; Aspartate Amino Transferase 14 U/L (15-37); BUN Creatinine Ratio 13.9; Bilirubin Direct 0.2 mg/dL (0.0-0.2); Bilirubin Total 0.7 mg/dL (0.2-1.0); Calcium 9.2 mg/dL (8.5-10.1); Carbon Dioxide 27.3 mmol/L (21.0-32.0); Chloride 106 mmol/L (98-107); Estimated GFR (African America >60 (>=60); Estimated GFR (Non-African Ame >60 (>=60); Gamma Glutamyl Transpeptidase 20 U/L (15-85); Glucose 98 mg/dL (74-106); Magnesium 2.2 mg/dL (1.8-2.4); Potassium 3.9 mmol/L (3.5-5.1); Sodium 142 mmol/L (136-145)
[2024-06-15 07:09] LABS: Tacrolimus (FK506), Blood 1.5 ng/mL (2.0-20.0)
== END 2024-06-13 06:36 | disposition home or self-care (01) ==
LOC: LAB 06:37
PROVIDERS: PCP Nurse Practitioner
DX: R79.9 Abnormal finding of blood chemistry, unspecified (principal); Z94.0 Kidney transplant status; Z94.4 Liver transplant status; Z48.298 Encounter for aftercare following other organ transplant
CPT/HCPCS: 36415; 80048; 80197; 82042; 82247; 82248; 82570; 82977; 83735; 84075; 84100; 84156; 84450; 84460; 85025

== ENCOUNTER 2024-06-20 06:43 | Outpatient (OUT) | payer MEDICARE, MEDICAID, SELFPAY ==
--- OUTSIDE RECORDS SUMMARY | 2024-06-20 06:50 | XMS_ITS | CCD ---
Author Organization [facility] Care Team Providers Care Desk Sergeant Name Role Phone Kiana Zuly Unavailable Unavailable [...] Unavailable AICHHOLZ, ZULY Primary Care Unavailable Aichholz [facility] Primary Care Provider Miguel RPComfort Unavailable [phone] Shirin [facility],PharmD, Angel Unavailable Unavailab makayla Leigh [facility],PharmD, Te Unavailable Unavai lable Aicholz [facility] Primary Care Provider [phone] CHANDUC, DR BURCH Admitting Unavailable MISC, DR BURCH Consulting Unavailable AICHHOLZ, TANGLED YARN SPOOL STRAIGHTENER ZULY Primary Care Unavailable MISC, DR BURCH Attending Unavailable MISC, DR BURCH Admitting Unavailable MISC, DR BURCH Consulting Unavailable AICHHOLZ, TANGLED YARN SPOOL STRAIGHTENER ZULY Primary Care Unavailable MISC, DR BURCH Attending Unavailable ARCELIA PIZARRO Consulting Unavailable KE BURNHAM Attending Unavailable KE BURNHAM Admitting Unavailable BARBARA, DR MÓNICA Munoz Consulting Unavailable AICHHOLZ, TANGLED YARN SPOOL STRAIGHTENER ZULY Primary Care Unavailable KE BURNHAM Consulting Unavailable MISC, DR BURCH Consulting Unavailable MISC, DR BURCH Attending Unavailable AICHHOLZ, TANGLED YARN SPOOL STRAIGHTENER UZLY Primary Care Unavailable MISC, DR BURCH Admitting Unavailable MISC, DR BURCH Consulting Unavailable MISC, DR BURCH Attending Unavailable AICHHOLZ, TANGLED YARN SPOOL STRAIGHTENER ZULY Primary Care Unavailable MISC, DR BURCH Admitting Unavailable MISC, DR BURCH Consulting Unavailable AICHHOLZ, TANGLED YARN SPOOL STRAIGHTENER ZULY Primary Care Unavailable MISC, DOCTOR Admitting Unavailable MISC, DR DOCTOR Attending Unavailable MELINDA, DR GEORGE Munoz Consulting Unavailable MELINDA, DR GEORGE Munoz Attending Unavailable AICHHOLZ, TANGLED YARN SPOOL STRAIGHTENER ZULY Primary Care Unavailable MELINDA, DR GEORGE Munoz Admitting Unavailable NAUN ., KE Consulting Unavailable MIRANDA, LYNDSAY Consulting Unavailable MELINDA, DR GEORGE Munoz Consulting Unavailable NAUN ., KE Attending Unavailable NAUN ., KE Admitting Unavailable AICHHOLZ, TANGLED YARN SPOOL STRAIGHTENER ZULY Primary Care Unavailable NAUN ., KE Consulting Unavailable GIAN HERRING Consulting Unavailable AICHHOLZ, TANGLED YARN SPOOL STRAIGHTENER ZULY Consulting Unavailable AICHHOLZ, TANGLED YARN SPOOL STRAIGHTENER ZULY Attending Unavailable AICHHOLZ, TANGLED YARN SPOOL STRAIGHTENER ZULY Admitting Unavailable AICHHOLZ, TANGLED YARN SPOOL STRAIGHTENER ZULY Primary Care Unavailable MISC, DR DOCTOR Consulting Unavailable MISC, DOCTOR Admitting Unavailable MISC, DOCTOR Attending Unavailable AICHHOLZ, TANGLED YARN SPOOL STRAIGHTENER ZULY Primary Care Unavailable MISC, DR DOCTOR Consulting Unavailable MISC, DR DOCTOR Attending Unavailable MISC, DOCTOR Admitting Unavailable AICHHOLZ, TANGLED YARN SPOOL STRAIGHTENER ZULY Primary Care Unavailable MISC, DOCTOR Admitting Unavailable MISC, DOCTOR Consulting Unavailable MISC, DR DOCTOR Attending Unavailable AICHHOLZ, TANGLED YARN SPOOL STRAIGHTENER ZULY Primary Care Unavailable MISC, DOCTOR Admitting Unavailable MISC, DR DOCTOR Consulting Unavailable AICHHOLZ, TANGLED YARN SPOOL STRAIGHTENER ZULY Primary Care Unavailable MISC, DR DOCTOR Attending Unavailable MISC, DOCTOR Admitting Unavailable MISC, DOCTOR Consulting Unavailable AICHHOLZ, TANGLED YARN SPOOL STRAIGHTENER ZULY Primary Care Unavailable MISC, DR DOCTOR Attending Unavailable AICHHOLZ, TANGLED YARN SPOOL STRAIGHTENER ZULY Consulting Unavailable AICHHOLZ, TANGLED YARN SPOOL STRAIGHTENER ZULY Attending Unavailable AICHHOLZ, TANGLED YARN SPOOL STRAIGHTENER ZULY Admitting Unavailable AICHHOLZ, TANGLED YARN SPOOL STRAIGHTENER ZULY Primary Care Unavailable DR MÓNICA JIMENEZ Consulting Unavailable Aichholz [facility], Zuly Primary Care Provider [phone] Evan White DO Unavailable [facility], Zuly Primary Care Provider Tran White DOs A Unavailable [phone] Momo Verdugo MD Primary Care Provider [phone] Aichholz TANGL[employer] YARN SPOOL STRAIGHTENER, Zuly Primary Care Provider AICHHOLZ, ZULY Attending [...] ALMAGUER Attending Unavailable KELVIN PACHECO Referring Unavailable AICHHOLZ, ZULY [...] Unavailabl e AICHHOLZ, ZULY Primary Care Unavailable MIGUEL CARDONA Attending Unavailable Allergies Allergy Classification Reported Allergen(s) Allergy Type Date of Onset Reaction(s) Facility (2 sources) Shellfish; Translations: [SHELLFISH DERIVED] Propensity to adverse reactions (disorder) 8 [facility] Repository (20 sources) Shellfish-Derive d Products Propensity to adverse reactions to drug 9 [facility] (1 source) Shellfish Drug allergy (disorder) The [facility] Repository Medications Current Medications Medication Drug [...] Start: 12-30-2021 take 2 tablets by mo [facility] once daily allopurinol 100 MG tablet Indications: [...] 1 capsule by mouth once daily b [id number] acid (NEPHROCAPS) 1 MG capsule Take 1 [...] ankle pain. 0 06/12/2020 06/12/2023 Discontinued lactulose 69819 mg powder for oral solution (19 sources) [...] suspension (20 sources) Calcineurin Inhibitor Immunosuppressant Start: 06-17-2024 End: 09-03-2024 Tacrolimus 0.2 MG Pack Take 0.2 mg by mouth every 48 hours. 12 Each 3 06/17/2024 09/03/2024 Active Start: 03-04-2024 End: 06-17-2024 take 1 dose by mouth once Tacrolimus 0.2 MG Pack Mix 1 packet (0.2 mg) as directed and take by mouth every Thursday and Thursday. 8 Each 5 03/04/2024 06/17/2024 Discontinued Start: 02-19-2024 End: 03-02-2024 take 0.2 mg [...] or crush torsemide 20 mg oral tablet (15 sources) Loop Diuretic Start: 04-15-2024 take 1 [...] tablet (5 sources) take 1 tablet by once daily vitamin D (CHOLECALCIFEROL) 1000 UNIT [...] itraconazole Fax results to: Dr. White - [phone] [facility] - [phone] Each 09/10/2023 01/19/2024 Discontinued (Medication Reconciliation (suppress cancel msg)) Start: 09-10-2023 CUSTOM MEDICAT ION Labs to be obtained: 1- Tacrolimus level, trough - collect twice weekly until 09/24/23, then weekly until 10/08/23, them once every two weeks there after. 2- Itraconazole level - obtain once between 09/14-09/18. 3- Chem 6 - Obtain weekly while on itraconazole Fax results to: Dr. White - [phone] [facility] - [phone] Each 0 09/10/2023 Active Diatrizoate (1 [...] 01/16/2023 Discontinued take 2 tablets by mo [facility] in the morning magnesium oxide (Mag-Ox) 400 MG tablet Take 2 tablets by mouth in the morning. 0 [facility] magnesium oxide (MAG-OX) 400 [...] (ROXICODONE) tablet 10 mg polyethylene glycol 3350 61663 mg powder for oral solution (20 sources) [...] rate of 5mg/min. Maximum of 40mg/day. sennosides, nursing home 8.6 mg oral tablet (1 source) [...] 3 11-03-2023 Episodic Congestive heart failure; nonhypertensive (20 sources) Acute diastolic heart failure; Translations: [Acute diastolic (congestive) heart failure] Onset: 4 01-20-2024 Chronic Coronary atherosclerosis and other heart disease (20 sources) Coronary arteriosclerosis; Translations: [Atherosclerotic heart disease of [place] coronary artery without angina pectoris] Onset: 3 [...] disorders] Onset: 3 08-28-2023 Chronic Immunity disorders (17 sources) Immunosuppression; Translations: [Immunodeficiency, unspecified] Onset: 2 [...] other than malignant neoplasm] Episodic Other aftercare (3 sources) Taking high risk medication; Translations: [Other snf (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] Episodic Other aftercare (1 source) Patient encounter status; Translations: [Encounter for therapeutic drug level monitoring] 06-17-2024 Episodic Other and ill-defined heart disease (3 [...] [LIVER TRANSPLANT STATUS] Onset: 3 Chronic Other liver diseases (1 source) Lesion of liver; Translations: [Liver disease, unspecified] 06-17-2024 Chronic Other lower respiratory disease (1 source) [...] Onset: 11-08-2022 Episodic Fever of unknown origin (20 sources) Fever; Translations: [Fever, unspecified] Onset: 08-28-2023 [...] Other snf (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; Translations: [OTH RESIDENTIAL 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 THERAPY] Onset: 07-06-2022 Episodic Other aftercare (1 source) 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 Normal [facility] Office Visiton 05-13-2024 Follow-up visit [id number] George Styles 1970 M Date Provider Department Center 05/13/2024 [facility]MIGUEL CARDONA [facility] Family History Problem Relation Age of Onset Coronary artery disease Mother Coronary artery disease Father Family Status - Relation Status Age at Mother Father Level of Service:76815 HI OFFICE/OUTPATIENT ESTABLISHED LOW MDM 20 MIN Reason for Visit and Comments: Follow-up [283726] - Yearly follow up Normal [facility] B-TYPE NATRIURETIC PEPTIDE ( BRAIN)on 02-26-2024 Interpretation and review of laboratory results Normal [facility] Natriuretic peptide B (Bld) [Mass/Vol] 72 pg/mL 0 - 100 pg/mL [facility] Natriuretic peptide B (Bld) [Mass/Vol] 72 pg/mL Normal 0-100 [facility] Comment on above: Performed By: #### B UNMANNED EQUIPMENT OPERATOR ####[facility] (DEFAULT)[address] [place] [address] CHEM 6 (LYTES, BUN CREA)on 0 02-26-2024 Anion gap [Moles/Vol] 13 mmol/L 7 - 17 mmol/L [facility] Chloride [Moles/Vol] 107 mmol/L 98 - 10 8 mmol/L [facility] CO2 [Moles/Vol] 25 mmol/L 21 - 31 mmol/L [facility] Creatinine [Mass/Vol] 1.23 mg/dL 0.70 - 1.30 mg/dL [facility] eGFR, CKD-EPI, Male 70 - PINF [facility] Comment on above: Reported eGFR is bas ed on the CKD-EPI 2020 equation using creatinine, age, and sex. Potassium [Moles/Vol] 4.2 mmol/L 3.5 - 5.0 mmol/L [facility] Sodium [Moles/Vol] 141 mmol/L 135 - 145 mmol/L [facility] Urea nitrogen [Mass/Vol] 17 mg/dL 7 - 25 mg/dL [facility] Urea nitrogen/Creatinine [Mass ratio] 14 mg/mg [facility] Anion gap [Moles/Vol] 13 mmol/L Normal 7-17 [facility] Comment on above: Performed By: #### C HM6 ####[facility] (DEFAULT)[address] [place] [address] Chloride [Moles/Vol] 107 mmol/L Normal 98-108 [facility] Comment on above: Performed By: #### C HM6 ####[facility] (DEFAULT)[address] [place] [address] CO2 [Moles/Vol] 25 mmol/L Normal 21-31 [facility] Comment on above: Performed By: #### C HM6 ####[facility] (DEFAULT)[address] [place] [address] Creatinine [Mass/Vol] 1.23 mg/dL Normal 0.70-1.30 [facility] Comment on above: Performed By: #### C HM6 ####[facility] (DEFAULT)[address] [place] [address] GFR/1.73 sq M.predicted among non-blacks MDRD (S/P/Bld) [Vol rate/Area] 70 mL/min/{1.73_m2} Normal >=60 [facility] Comment on above: Result Comment: Repo rted eGFR is based on the CKD-EPI 2020 equation using creatinine, age, and sex. Performed By: #### C HM6 ####[facility] (DEFAULT)[address] [place] [address] Potassium [Moles/Vol] 4.2 mmol/L Normal 3.5-5.0 [facility] Comment on above: Performed By: #### C HM6 ####[facility] (DEFAULT)[address] [place] [address] Sodium [Moles/Vol] 141 mmol/L Normal 135-145 [facility] Comment on above: Performed By: #### C HM6 ####[facility] (DEFAULT)[address] [place] [address] Urea nitrogen [Mass/Vol] 17 mg/dL Normal 7-25 [facility] Comment on above: Performed By: #### C HM6 ####[facility] (DEFAULT)[address] [place] [address] Urea nitrogen/Creatinine [Mass ratio] 14 mg/mg Normal [facility] Comment on above: Performed By: #### C HM6 ####[facility] (DEFAULT)[address] [place] [address] CBC,PLATELETSon 01-23-2024 Erythrocyte distribution width (RBC) [Ratio] 14.2 % 10.9 - 14.3 % [facility] Hematocrit (Bld) [Volume fraction] 37.0 % Low 39.6 - 48.8 % [facility] Hemoglobin (Bld) [Mass/Vol] 12.0 g/dL Low 13.4 - 16.8 g/dL [facility] Interpretation and review of laboratory results Abnormal [facility] MCH (RBC) [Entitic mass] 28.6 pg 26.1 - 33.3 pg [facility] MCHC (RBC) [Mass/Vol] 32.4 g/dL 31.9 - 36.5 g/dL [facility] MCV (RBC) [Entitic vol] 88.1 fL 79.0 - 94.5 fL [facility] Platelet mean volume (Bld) [Entitic vol] 10.4 fL 8.7 - 12.3 fL [facility] Platelets (Bld) [#/Vol] 170 10*3/uL 146 - 337 K/uL [facility] RBC (Bld) [#/Vol] 4.20 10*6/uL Low [facility] WBC (Bld) [#/Vol] 3.70 10*3/uL Low 3.73 - 10. 10 K/uL [facility] Hematocrit (Bld) [Volume fraction] 37.0 % Low 39.6-48.8 [facility] Comment on above: Performed By: #### H [facility] ####[facility] (DEFAULT)[address] [place] [address] Hemoglobin (Bld) [Mass/Vol] 12.0 g/dL Low 13.4-16.8 [facility] Comment on above: Performed By: #### H EMO ####[facility] (DEFAULT)[address] [place] [address] MCV (RBC) [Entitic vol] 88.1 fL Normal 79.0-94.5 [facility] Comment on above: Performed By: #### H EMO ####[facility] (DEFAULT)[address] [place] [address] Mean Cell Hgb 28.6 pg Normal 26.1-33.3 [facility] Comment on above: Performed By: #### H EMO ####[facility] (DEFAULT)[address] [facility] [place] [address] Mean Cell Hgb Conc 32.4 g/dL Normal 31.9-36.5 [facility] Comment on above: Performed By: #### H EMO ####[facility] (DEFAULT)[address] [place] [address] Platelet mean volume (Bld) [Entitic vol] 10.4 fL Normal 8.7-12.3 [facility] Comment on above: Performed By: #### H EMOGC ####[facility] (DEFAULT)[address] [place] [address] Platelets (Bld) [#/Vol] 170 10*3/uL Normal 146-337 [facility] Comment on above: Performed By: #### H EMOGC ####[facility] (DEFAULT)[address] [place] [address] RBC (Bld) [#/Vol] 4.20 10*6/uL Low 4.38-5.83 [facility] Comment on above: Performed By: #### H EMO ####[facility] (DEFAULT)[address] [place] [address] RBC Distribution 14.2 % Normal 10.9-14.3 [facility] Comment on above: Performed By: #### H EMOGC ####[facility] (DEFAULT)[address] [place] [address] WBC (Bld) [#/Vol] 3.70 10*3/uL Low 3.73-10.10 [facility] Comment on above: Performed By: #### H EMOGC ####[facility] (DEFAULT)[address] [place] [address] CHEM 7 (LYTES,BUN,CREA,GLUC) on 01-23-2024 Anion gap [Moles/Vol] 14 mmol/L 7 - 17 mmol/L [facility] Chloride [Moles/Vol] 105 mmol/L 98 - 10 8 mmol/L [facility] CO2 [Moles/Vol] 25 mmol/L 21 - 31 mmol/L [facility] Creatinine [Mass/Vol] 1.32 mg/dL High 0.70 - 1.30 mg/dL [facility] eGFR, CKD-EPI, Male 65 - PINF [facility] Comment on above: Reported eGFR is bas ed on the CKD-EPI 2020 equation using creatinine, age, and sex. Glucose [Mass/Vol] 94 mg/dL 70 - 99 mg/dL [facility] Osmolality Calc [Osmolality] 296 [facility] Potassium [Moles/Vol] 3.8 mmol/L 3.5 - 5.0 mmol/L [facility] Sodium [Moles/Vol] 140 mmol/L 135 - 145 mmol/L [facility] Urea nitrogen [Mass/Vol] 23 mg/dL 7 - 25 mg/dL [facility] Urea nitrogen/Creatinine [Mass ratio] 17 mg/mg [facility] Anion gap [Moles/Vol] 14 mmol/L Normal 7-17 [facility] Comment on above: Performed By: #### NATHANIEL RAMÍREZ, HFP ####[facility] (DEFAULT)[address] [place] [address] Chloride [Moles/Vol] 105 mmol/L Normal 98-108 [facility] Comment on above: Performed By: #### NATHANIEL RAMÍREZ, HFP ####[facility] (DEFAULT)[address] [place] [address] CO2 [Moles/Vol] 25 mmol/L Normal 21-31 [facility] Comment on above: Performed By: #### NATHANIEL RAMÍREZ, HFP ####[facility] (DEFAULT)[address] [place] [address] Creatinine [Mass/Vol] 1.32 mg/dL High 0.70-1.30 [facility] Comment on above: Performed By: #### NATHANIEL RAMÍREZ, HFP ####[facility] (DEFAULT)[address] [place] [address] GFR/1.73 sq M.predicted among non-blacks MDRD (S/P/Bld) [Vol rate/Area] 65 mL/min/{1.73_m2} Normal >=60 [facility] Comment on above: Result Comment: Repo rted eGFR is based on the CKD-EPI 2020 equation using creatinine, age, and sex. Performed By: #### NATHANIEL RAMÍREZ, HFP ####[facility] (DEFAULT)[address] [place] [address] Glucose [Mass/Vol] 94 mg/dL Normal 70-99 [facility] Comment on above: Performed By: #### NATHANIEL RAMÍREZ, HFP ####[facility] (DEFAULT)[address] [place] [address] Osmolality [Osmolality] 296 mosm/kg Normal 278-305 [facility] Comment on above: Performed By: #### NATHANIEL RAMÍREZ, HFP ####[facility] (DEFAULT)[address] [place] [address] Potassium [Moles/Vol] 3.8 mmol/L Normal 3.5-5.0 [facility] Comment on above: Performed By: #### NATHANIEL RAMÍREZ, HFP ####[facility] (DEFAULT)[address] [place] [address] Sodium [Moles/Vol] 140 mmol/L Normal 135-145 [facility] Comment on above: Performed By: #### NATHAINEL RAMÍREZ, HFP ####[facility] (DEFAULT)[address] [place] [address] Urea nitrogen [Mass/Vol] 23 mg/dL Normal 7-25 [facility] Comment on above: Performed By: #### NATHANIEL RAMÍREZ, HFP ####[facility] (DEFAULT)[address] [place] [address] Urea nitrogen/Creatinine [Mass ratio] 17 mg/mg Normal [facility] Comment on above: Performed By: #### NATHANIEL RAMÍREZ, HFP ####[facility] (DEFAULT)[address] [place] [address] GLUCOSE POCon 01-23-2024 Glucose [Mass/Vol] 88 mg/dL 70 - 99 mg/dL [facility] POC Sample Type CAPBL [facility] Test performed at ad dress of the patient encounter. [facility] Glucose [Mass/Vol] 191 mg/dL High 70 - 99 mg/dL [facility] Interpretation and review of laboratory results Abnormal [facility] POC Sample Type CAPBL [facility] Test performed at ad dress of the patient encounter. [facility] HEPATIC FUNCTION PANELon Albumin [Mass/Vol] 3.9 g/dL 3.5 - 5.0 g/dL [facility] ALP [Catalytic activity/Vol] 83 U/L 32 - 126 U/L [facility] ALT [Catalytic activity/Vol] 9 U/L Low 10 - 52 U/L [facility] AST [Catalytic activity/Vol] 17 U/L 10 - 39 U/L [facility] Bilirubin [Mass/Vol] 1.6 mg/dL High NINF - 1.5 mg/dL [facility] Bilirubin.direct [Mass/Vol] 0.4 mg/dL High NINF - 0.3 mg/dL [facility] Protein [Mass/Vol] 6.6 g/dL 6.4 - 8.3 g/dL [facility] Albumin [Mass/Vol] 3.9 g/dL Normal 3.5-5.0 [facility] Comment on above: Performed By: #### NATHANIEL RAMÍREZ, HFP ####[facility] (DEFAULT)[address] [place] [address] ALP [Catalytic activity/Vol] 83 U/L Normal 32-126 [facility] Comment on above: Performed By: #### NATHANIEL RAMÍREZ, HFP ####[facility] (DEFAULT)[address] [place] [address] ALT [Catalytic activity/Vol] 9 U/L Low 10-52 [facility] Comment on above: Performed By: #### NATHANIEL RAMÍREZ, HFP ####[facility] (DEFAULT)[address] [place] [address] AST [Catalytic activity/Vol] 17 U/L Normal 10-39 [facility] Comment on above: Performed By: #### NATHANIEL RAMÍREZ, HFP ####[facility] (DEFAULT)[address] [place] [address] Bilirubin [Mass/Vol] 1.6 mg/dL High <1.5 [facility] Comment on above: Performed By: #### NATHANIEL RAMÍREZ, HFP ####[facility] (DEFAULT)[address] [place] [address] Bilirubin.indirect [Mass/Vol] 0.4 mg/dL High <0.3 [facility] Comment on above: Performed By: #### NATHANIEL RAMÍREZ, HFP ####[facility] (DEFAULT)[address] [place] [address] Protein [Mass/Vol] 6.6 g/dL Normal 6.4-8.3 [facility] Comment on above: Performed By: #### NATHANIEL RAMÍREZ, HFP ####[facility] (DEFAULT)[address] [place] [address] ITRACONAZOLE LEVELon 024 Hydroxyitraconazole [Mass/Vol] 7.6 mcg/mL [facility] Comment on above: REFERENCE VALUE No therapeutic range established; activity and serum concentration are similar to parent drug. ADDITIONAL INFORMATION This test was developed and its performance characteristics determined by [facility] in a manner consistent with CLIA requirements. This test has not been cleared or approved by the U.S. Food and Drug Administration. Test Performed by: [facility] [address] [place] [address] [facility]: Rosendo Bose M.D. Ph.D.; CLIA# [id number] Itraconazole [Mass/Vol] 6.0 mcg/mL [facility] Comment on above: REFERENCE VALUE >0.5 (localized infection), >1.0 (systemic infection) [facility] MAGNESIUMon 01-23-2024 Interpretation and review of laboratory results Normal [facility] Magnesium [Mass/Vol] 1.8 mg/dL 1.6 - 2 .6 mg/dL [facility] [facility] Magnesium [Mass/Vol] 1.8 mg/dL Normal 1.6-2.6 [facility] Comment on above: Performed By: #### M HELEN BLOOMM7, [facility] ####[facility] (DEFAULT)[address] [place] [address] No Panel Informationon 01-23 Interpretation and review of laboratory results Abnormal [facility] TACROLIMUS LEVEL, TROUGH (HI E DRUG LEVEL)on 01-23-2024 Interpretation and review of laboratory results Normal [facility] Tacrolimus (Bld) [Mass/Vol] 7.0 ng/mL Bone Marrow Transplant: 4.0-12.0, Therapeutic: 5.0-15.0 [facility] Method performed is a chemiluminescent microparticle immunoasssay on the [employer] i2000. The range is based on experience at [facility] and users should be aware that target concentrations vary widely depending on concomitant therapy, time post-transplant, and desired degree of immunosuppression. [facility] Tacrolimus, Trough 7.0 ng/mL Normal Bone Susana ow Transplant: 4.0-12.0, Therapeutic: 5.0-15.0 [facility] Comment on above: Order Comment: Samrajoan gregory draw at specified interval PRIOR to dose. Do not hold dose to wait for level. Specimens batched twice per day, (M-F) and once per day weekendsMethod performed is a chemiluminescent microparticle immunoasssay on the [employer] i2000.The range is based on experience at [facility] and users should be aware that target concentrations vary widely depending on concomitant therapy, time post-transplant, and desired degree of immunosuppression. Performed By: #### T ACRO ####[facility] (DEFAULT)[address] [place] [address] CARDIAC RHYTHM (SCANNED)on 0 01-22-2024 [facility] CBC,PLATELETSon 01-22-2024 Erythrocyte distribution width (RBC) [Ratio] 14.1 % 10.9 - 14.3 % [facility] Hematocrit (Bld) [Volume fraction] 41.5 % 39.6 - 48.8 % [facility] Hemoglobin (Bld) [Mass/Vol] 13.3 g/dL Low 13.4 - 16.8 g/dL [facility] Interpretation and review of laboratory results Abnormal [facility] MCH (RBC) [Entitic mass] 27.8 pg 26.1 - 33.3 pg [facility] MCHC (RBC) [Mass/Vol] 32.0 g/dL 31.9 - 36.5 g/dL [facility] MCV (RBC) [Entitic vol] 86.8 fL 79.0 - 94.5 fL [facility] Platelet mean volume (Bld) [Entitic vol] 10.5 fL 8.7 - 12.3 fL [facility] Platelets (Bld) [#/Vol] 186 10*3/uL 146 - 337 K/uL [facility] RBC (Bld) [#/Vol] 4.78 10*6/uL [facility] WBC (Bld) [#/Vol] 3.74 10*3/uL 3.73 - 10. 10 K/uL [facility] Hematocrit (Bld) [Volume fraction] 41.5 % Normal 39.6-48.8 [facility] Comment on above: Performed By: #### H EMOGC ####[facility] (DEFAULT)[address] [place] [address] Hemoglobin (Bld) [Mass/Vol] 13.3 g/dL Low 13.4-16.8 [facility] Comment on above: Performed By: #### H EMOGC ####[facility] (DEFAULT)[address] [place] [address] MCV (RBC) [Entitic vol] 86.8 fL Normal 79.0-94.5 [facility] Comment on above: Performed By: #### H EMOGC ####[facility] (DEFAULT)[address] [place] [address] Mean Cell Hgb 27.8 pg Normal 26.1-33.3 [facility] Comment on above: Performed By: #### H EMOGC ####[facility] (DEFAULT)[address] [place] [address] Mean Cell Hgb Conc 32.0 g/dL Normal 31.9-36.5 [facility] Comment on above: Performed By: #### H EMOGC ####[facility] (DEFAULT)[address] [place] [address] Platelet mean volume (Bld) [Entitic vol] 10.5 fL Normal 8.7-12.3 [facility] Comment on above: Performed By: #### H EMOGC ####[facility] (DEFAULT)[address] [place] [address] Platelets (Bld) [#/Vol] 186 10*3/uL Normal 146-337 [facility] Comment on above: Performed By: #### H EMOGC ####[facility] (DEFAULT)[address] [place] [address] RBC (Bld) [#/Vol] 4.78 10*6/uL Normal 4.38-5.83 [facility] Comment on above: Performed By: #### H [facility] ####[facility] (DEFAULT)[address] [place] [address] RBC Distribution 14.1 % Normal 10.9-14.3 [facility] Comment on above: Performed By: #### H [facility] ####[facility] (DEFAULT)[address] [place] [address] WBC (Bld) [#/Vol] 3.74 10*3/uL Normal 3.73-10.10 [facility] Comment on above: Performed By: #### H [facility] ####[facility] (DEFAULT)[address] [place] [address] CHEM 7 (LYTES,BUN,CREA,GLUC) on 01-22-2024 Anion gap [Moles/Vol] 13 mmol/L 7 - 17 mmol/L [facility] Chloride [Moles/Vol] 109 mmol/L High 98 - 10 8 mmol/L [facility] CO2 [Moles/Vol] 23 mmol/L 21 - 31 mmol/L [facility] Creatinine [Mass/Vol] 1.10 mg/dL 0.70 - 1.30 mg/dL [facility] eGFR, CKD-EPI, Male 81 - PINF [facility] Comment on above: Reported eGFR is bas ed on the CKD-EPI 2020 equation using creatinine, age, and sex. Glucose [Mass/Vol] 84 mg/dL 70 - 99 mg/dL [facility] Interpretation and review of laboratory results Abnormal [facility] Osmolality Calc [Osmolality] 295 [facility] Potassium [Moles/Vol] 4.0 mmol/L 3.5 - 5.0 mmol/L [facility] Sodium [Moles/Vol] 141 mmol/L 135 - 145 mmol/L [facility] Urea nitrogen [Mass/Vol] 16 mg/dL 7 - 25 mg/dL [facility] Urea nitrogen/Creatinine [Mass ratio] 15 mg/mg [facility] Anion gap [Moles/Vol] 13 mmol/L Normal 7-17 [facility] Comment on above: Performed By: #### Rod BLOOM CHM7 ####[facility] (DEFAULT)[address] [place] [address] Chloride [Moles/Vol] 109 mmol/L High 98-108 [facility] Comment on above: Performed By: #### Rod BLOOM CHM7 ####[facility] (DEFAULT)[address] [place] [address] CO2 [Moles/Vol] 23 mmol/L Normal 21-31 [facility] Comment on above: Performed By: #### Rod BLOOM CHM7 ####[facility] (DEFAULT)[address] [place] [address] Creatinine [Mass/Vol] 1.10 mg/dL Normal 0.70-1.30 [facility] Comment on above: Performed By: #### TJ RAMÍREZ7 ####[facility] (DEFAULT)[address] [place] [address] GFR/1.73 sq M.predicted among non-blacks MDRD (S/P/Bld) [Vol rate/Area] 81 mL/min/{1.73_m2} Normal >=60 [facility] Comment on above: Result Comment: Repo rted eGFR is based on the CKD-EPI 2020 equation using creatinine, age, and sex. Performed By: #### Rod BLOOM CHRod7 ####[facility] (DEFAULT)[address] [place] [address] Glucose [Mass/Vol] 84 mg/dL Normal 70-99 [facility] Comment on above: Performed By: #### Rod BLOOM CHM7 ####[facility] (DEFAULT)[address] [place] [address] Osmolality [Osmolality] 295 mosm/kg Normal 278-305 [facility] Comment on above: Performed By: #### NATHANIEL RAMÍREZ ####[facility] (DEFAULT)[address] [place] [address] Potassium [Moles/Vol] 4.0 mmol/L Normal 3.5-5.0 [facility] Comment on above: Performed By: #### TJ RAMÍREZ7 ####[facility] (DEFAULT)[address] [place] [address] Sodium [Moles/Vol] 141 mmol/L Normal 135-145 [facility] Comment on above: Performed By: #### TJ RAMÍREZ7 ####[facility] (DEFAULT)[address] [place] [address] Urea nitrogen [Mass/Vol] 16 mg/dL Normal 7-25 [facility] Comment on above: Performed By: #### NATHANIEL RAMÍREZ ####[facility] (DEFAULT)[address] [place] [address] Urea nitrogen/Creatinine [Mass ratio] 15 mg/mg Normal [facility] Comment on above: Performed By: #### NATHANIEL RAMÍREZ ####[facility] (DEFAULT)[address] [place] [address] MAGNESIUMon 01-22-2024 Interpretation and review of laboratory results Normal [facility] Magnesium [Mass/Vol] 2.0 mg/dL 1.6 - 2 .6 mg/dL [facility] Magnesium [Mass/Vol] 2.0 mg/dL Normal 1.6-2.6 [facility] Comment on above: Performed By: #### NATHANIEL RAMÍREZ ####[facility] (DEFAULT)[address] [place] [address] No Panel Informationon 01-22 [facility] PT,INR,PTTon 01-22-2024 aPTT Coag (PPP) [Time] 29.2 s [facility] INR Coag (Bld) [Relative time] 1.1 {INR} 0.9 - 1.1 [facility] Interpretation and review of laboratory results Abnormal [facility] PT Coag (PPP) [Time] 14.3 s High [facility] aPTT Coag (Bld) [Time] 29.2 s Normal 24.0-34.3 [facility] Comment on above: Performed By: #### P TPTT ####[facility] (DEFAULT)[address] [place] [address] INR Coag (PPP) [Relative time] 1.1 {INR} Normal 0.9-1.1 [facility] Comment on above: Performed By: #### P TPTT ####[facility] (DEFAULT)[address] [place] [address] PT Coag (PPP) [Time] 14.3 s High 11.9-14.2 [facility] Comment on above: Performed By: #### P TPTT ####[facility] (DEFAULT)[address] [place] [address] TACROLIMUS LEVEL, TROUGH (HI E DRUG LEVEL)Ordered By: Sheree Jensen on 01-22-2024 Interpretation and review of laboratory results Normal [facility] Tacrolimus (Bld) [Mass/Vol] 7.9 ng/mL Bone Marrow Transplant: 4.0-12.0, Therapeutic: 5.0-15.0 [facility] Method performed is a chemiluminescent microparticle immunoasssay on the [employer] i2000. The range is based on experience at [facility] and users should be aware that target concentrations vary widely depending on concomitant therapy, time post-transplant, and desired degree of immunosuppression. [facility] TACROLIMUS LEVEL, TROUGH (HI E DRUG LEVEL)on 01-22-2024 Tacrolimus, Trough 7.9 ng/mL Normal Bone Susana ow Transplant: 4.0-12.0, Therapeutic: 5.0-15.0 [facility] Comment on above: Order Comment: Pleas e draw at specified interval PRIOR to dose. Do not hold dose to wait for level. Specimens batched twice per day, (M-F) and once per day weekendsMethod performed is a chemiluminescent microparticle immunoasssay on the [employer] i2000.The range is based on experience at [facility] and users should be aware that target concentrations vary widely depending on concomitant therapy, time post-transplant, and desired degree of immunosuppression. Performed By: #### T ACRO ####[facility] (DEFAULT)[address] [place] [address] TYPE AND SCREENon 01-22-2024 ABO/RH(D) TYPE Positive [facility] ABO/RH(D) TYPE Positive Normal [facility] Comment on above: Performed By: #### X M ####[facility] (DEFAULT)[address] [place] [address] [place] Unspecified body regionOr dered By: Unassigned Pacs on 01-22-2024 [facility] Work Phone: [place] Unspecified body regionon 01-22-2024 Radiology Study observation (narrative) [facility] CBC,PLATELETSon 01-21-2024 Erythrocyte distribution width (RBC) [Ratio] 14.0 % 10.9 - 14.3 % [facility] Hematocrit (Bld) [Volume fraction] 39.4 % Low 39.6 - 48.8 % [facility] Hemoglobin (Bld) [Mass/Vol] 12.7 g/dL Low 13.4 - 16.8 g/dL [facility] Interpretation and review of laboratory results Abnormal [facility] MCH (RBC) [Entitic mass] 28.0 pg 26.1 - 33.3 pg [facility] MCHC (RBC) [Mass/Vol] 32.2 g/dL 31.9 - 36.5 g/dL [facility] MCV (RBC) [Entitic vol] 87.0 fL 79.0 - 94.5 fL [facility] Platelet mean volume (Bld) [Entitic vol] 10.2 fL 8.7 - 12.3 fL [facility] Platelets (Bld) [#/Vol] 157 10*3/uL 146 - 337 K/uL [facility] RBC (Bld) [#/Vol] 4.53 10*6/uL [facility] WBC (Bld) [#/Vol] 3.42 10*3/uL Low 3.73 - 10. 10 K/uL [facility] Hematocrit (Bld) [Volume fraction] 39.4 % Low 39.6-48.8 [facility] Comment on above: Performed By: #### H EMO ####[facility] (DEFAULT)[address] [place] [address] Hemoglobin (Bld) [Mass/Vol] 12.7 g/dL Low 13.4-16.8 [facility] Comment on above: Performed By: #### H EMO ####[facility] (DEFAULT)[address] [place] [address] MCV (RBC) [Entitic vol] 87.0 fL Normal 79.0-94.5 [facility] Comment on above: Performed By: #### H EMO ####[facility] (DEFAULT)[address] [place] [address] Mean Cell Hgb 28.0 pg Normal 26.1-33.3 [facility] Comment on above: Performed By: #### H EMO ####[facility] (DEFAULT)[address] [place] [address] Mean Cell Hgb Conc 32.2 g/dL Normal 31.9-36.5 [facility] Comment on above: Performed By: #### H EMOGC ####[facility] (DEFAULT)[address] [place] [address] Platelet mean volume (Bld) [Entitic vol] 10.2 fL Normal 8.7-12.3 [facility] Comment on above: Performed By: #### H [facility] ####[facility] (DEFAULT)[address] [place] [address] Platelets (Bld) [#/Vol] 157 10*3/uL Normal 146-337 [facility] Comment on above: Performed By: #### H EMO ####[facility] (DEFAULT)[address] [place] [address] RBC (Bld) [#/Vol] 4.53 10*6/uL Normal 4.38-5.83 [facility] Comment on above: Performed By: #### H [facility] ####[facility] (DEFAULT)[address] [place] [address] RBC Distribution 14.0 % Normal 10.9-14.3 [facility] Comment on above: Performed By: #### H [facility] ####[facility] (DEFAULT)[address] [place] [address] WBC (Bld) [#/Vol] 3.42 10*3/uL Low 3.73-10.10 [facility] Comment on above: Performed By: #### H [facility] ####[facility] (DEFAULT)[address] [place] [address] CHEM 7 (LYTES,BUN,CREA,GLUC) on 01-21-2024 Anion gap [Moles/Vol] 12 mmol/L 7 - 17 mmol/L [facility] Chloride [Moles/Vol] 107 mmol/L 98 - 10 8 mmol/L [facility] CO2 [Moles/Vol] 26 mmol/L 21 - 31 mmol/L [facility] Creatinine [Mass/Vol] 1.11 mg/dL 0.70 - 1.30 mg/dL [facility] eGFR, CKD-EPI, Male 80 - PINF [facility] Comment on above: Reported eGFR is bas ed on the CKD-EPI 2020 equation using creatinine, age, and sex. Glucose [Mass/Vol] 93 mg/dL 70 - 99 mg/dL [facility] Osmolality Calc [Osmolality] 295 [facility] Potassium [Moles/Vol] 3.9 mmol/L 3.5 - 5.0 mmol/L [facility] Sodium [Moles/Vol] 141 mmol/L 135 - 145 mmol/L [facility] Urea nitrogen [Mass/Vol] 15 mg/dL 7 - 25 mg/dL [facility] Urea nitrogen/Creatinine [Mass ratio] 14 mg/mg [facility] Anion gap [Moles/Vol] 12 mmol/L Normal 7-17 [facility] Comment on above: Performed By: #### TJ RAMÍREZ7 ####[facility] (DEFAULT)[address] [place] [address] Chloride [Moles/Vol] 107 mmol/L Normal 98-108 [facility] Comment on above: Performed By: #### TJ RAMÍREZ7 ####[facility] (DEFAULT)[address] [place] [address] CO2 [Moles/Vol] 26 mmol/L Normal 21-31 [facility] Comment on above: Performed By: #### TJ RAMÍREZ7 ####[facility] (DEFAULT)[address] [place] [address] Creatinine [Mass/Vol] 1.11 mg/dL Normal 0.70-1.30 [facility] Comment on above: Performed By: #### TJ RAMÍREZ7 ####[facility] (DEFAULT)[address] [place] [address] GFR/1.73 sq M.predicted among non-blacks MDRD (S/P/Bld) [Vol rate/Area] 80 mL/min/{1.73_m2} Normal >=60 [facility] Comment on above: Result Comment: Repo rted eGFR is based on the CKD-EPI 2020 equation using creatinine, age, and sex. Performed By: #### M GO, CHM7 ####[facility] (DEFAULT)[address] [place] [address] Glucose [Mass/Vol] 93 mg/dL Normal 70-99 [facility] Comment on above: Performed By: #### Rod BLOOM CHM7 ####[facility] (DEFAULT)[address] [place] [address] Osmolality [Osmolality] 295 mosm/kg Normal 278-305 [facility] Comment on above: Performed By: #### Rod BLOOM CHM7 ####[facility] (DEFAULT)[address] [place] [address] Potassium [Moles/Vol] 3.9 mmol/L Normal 3.5-5.0 [facility] Comment on above: Performed By: #### Rod BLOOM CHM7 ####[facility] (DEFAULT)[address] [place] [address] Sodium [Moles/Vol] 141 mmol/L Normal 135-145 [facility] Comment on above: Performed By: #### Rod BLOOM CHM7 ####[facility] (DEFAULT)[address] [place] [address] Urea nitrogen [Mass/Vol] 15 mg/dL Normal 7-25 [facility] Comment on above: Performed By: #### Rod BLOOM CHM7 ####[facility] (DEFAULT)[address] [place] [address] Urea nitrogen/Creatinine [Mass ratio] 14 mg/mg Normal [facility] Comment on above: Performed By: #### TJ RAMÍREZ7 ####[facility] (DEFAULT)[address] [place] [address] Cardiac catheterization stud yOrdered By: Kelvin Donohue on 01-21-2024 Body surface area Derived from formula 2.08 m2 [facility] Work Phone: [facility] Work Phone: Cardiac catheterization stud [...] with fistula occlusion Kelvin Donohue MD, MPH Chief Information Security Officer of Internal Medicine. Section of Advanced Heart Failure and Transplantation Division of Cardiovascular Diseases [facility] [email or web address] INVASIVE CARDIOVASCULAR PROC EDUREon 01-21-2024 INVASIVE CARDIOVASCULAR PROCEDURE Normal [facility] MAGNESIUMon 01-21-2024 Interpretation and review of laboratory results Abnormal [facility] Magnesium [Mass/Vol] 1.5 mg/dL Low 1.6 - 2 .6 mg/dL [facility] Magnesium [Mass/Vol] 1.5 mg/dL Low 1.6-2.6 [facility] Comment on above: Performed By: #### M [facility] ####[facility] (DEFAULT)[address] [place] [address] No Panel Informationon 01-21 [facility] TACROLIMUS LEVEL, TROUGH (HI E DRUG LEVEL)on 01-21-2024 Interpretation and review of laboratory results Normal [facility] Tacrolimus (Bld) [Mass/Vol] 7.2 ng/mL Bone Marrow Transplant: 4.0-12.0, Therapeutic: 5.0-15.0 [facility] Method performed is a chemiluminescent microparticle immunoasssay on the [employer] i2000. The range is based on experience at [facility] and users should be aware that target concentrations vary widely depending on concomitant therapy, time post-transplant, and desired degree of immunosuppression. [facility] Tacrolimus, Trough 7.2 ng/mL Normal Bone Susana ow Transplant: 4.0-12.0, Therapeutic: 5.0-15.0 [facility] Comment on above: Order Comment: Pleas e draw at specified interval PRIOR to dose. Do not hold dose to wait for level. Specimens batched twice per day, (M-F) and once per day weekendsMethod performed is a chemiluminescent microparticle immunoasssay on the [employer] i2000.The range is based on experience at [facility] and users should be aware that target concentrations vary widely depending on concomitant therapy, time post-transplant, and desired degree of immunosuppression. Performed By: #### T ACRO ####[facility] (DEFAULT)[address] [place] [address] CBC,PLATELETSon 01-20-2024 Erythrocyte distribution width (RBC) [Ratio] 13.8 % 10.9 - 14.3 % [facility] Hematocrit (Bld) [Volume fraction] 38.9 % Low 39.6 - 48.8 % [facility] Hemoglobin (Bld) [Mass/Vol] 12.5 g/dL Low 13.4 - 16.8 g/dL [facility] Interpretation and review of laboratory results Abnormal [facility] MCH (RBC) [Entitic mass] 28.0 pg 26.1 - 33.3 pg [facility] MCHC (RBC) [Mass/Vol] 32.1 g/dL 31.9 - 36.5 g/dL [facility] MCV (RBC) [Entitic vol] 87.2 fL 79.0 - 94.5 fL [facility] Platelet mean volume (Bld) [Entitic vol] 10.2 fL 8.7 - 12.3 fL [facility] Platelets (Bld) [#/Vol] 166 10*3/uL 146 - 337 K/uL [facility] RBC (Bld) [#/Vol] 4.46 10*6/uL [facility] WBC (Bld) [#/Vol] 3.79 10*3/uL 3.73 - 10. 10 K/uL [facility] Hematocrit (Bld) [Volume fraction] 38.9 % Low 39.6-48.8 [facility] Comment on above: Performed By: #### H EMOGC ####[facility] (DEFAULT)[address] [place] [address] Hemoglobin (Bld) [Mass/Vol] 12.5 g/dL Low 13.4-16.8 [facility] Comment on above: Performed By: #### H EMOGC ####[facility] (DEFAULT)[address] [place] [address] MCV (RBC) [Entitic vol] 87.2 fL Normal 79.0-94.5 [facility] Comment on above: Performed By: #### H EMOGC ####[facility] (DEFAULT)[address] [place] [address] Mean Cell Hgb 28.0 pg Normal 26.1-33.3 [facility] Comment on above: Performed By: #### H EMOGC ####[facility] (DEFAULT)[address] [place] [address] Mean Cell Hgb Conc 32.1 g/dL Normal 31.9-36.5 [facility] Comment on above: Performed By: #### H EMOGC ####[facility] (DEFAULT)[address] [place] [address] Platelet mean volume (Bld) [Entitic vol] 10.2 fL Normal 8.7-12.3 [facility] Comment on above: Performed By: #### H EMOGC ####[facility] (DEFAULT)[address] [place] [address] Platelets (Bld) [#/Vol] 166 10*3/uL Normal 146-337 [facility] Comment on above: Performed By: #### H [facility] ####[facility] (DEFAULT)[address] [place] [address] RBC (Bld) [#/Vol] 4.46 10*6/uL Normal 4.38-5.83 [facility] Comment on above: Performed By: #### H [facility] ####[facility] (DEFAULT)[address] [place] [address] RBC Distribution 13.8 % Normal 10.9-14.3 [facility] Comment on above: Performed By: #### H [facility] ####[facility] (DEFAULT)[address] [place] [address] WBC (Bld) [#/Vol] 3.79 10*3/uL Normal 3.73-10.10 [facility] Comment on above: Performed By: #### H [facility] ####[facility] (DEFAULT)[address] [place] [address] CHEM 7 (LYTES,BUN,CREA,GLUC) on 01-20-2024 Anion gap [Moles/Vol] 12 mmol/L 7 - 17 mmol/L [facility] Chloride [Moles/Vol] 105 mmol/L 98 - 10 8 mmol/L [facility] CO2 [Moles/Vol] 28 mmol/L 21 - 31 mmol/L [facility] Creatinine [Mass/Vol] 1.12 mg/dL 0.70 - 1.30 mg/dL [facility] eGFR, CKD-EPI, Male 79 - PINF [facility] Comment on above: Reported eGFR is bas ed on the CKD-EPI 2020 equation using creatinine, age, and sex. Glucose [Mass/Vol] 88 mg/dL 70 - 99 mg/dL [facility] Osmolality Calc [Osmolality] 294 [facility] Potassium [Moles/Vol] 3.8 mmol/L 3.5 - 5.0 mmol/L [facility] Sodium [Moles/Vol] 141 mmol/L 135 - 145 mmol/L [facility] Urea nitrogen [Mass/Vol] 15 mg/dL 7 - 25 mg/dL [facility] Urea nitrogen/Creatinine [Mass ratio] 13 mg/mg [facility] Anion gap [Moles/Vol] 12 mmol/L Normal 7-17 [facility] Comment on above: Performed By: #### TAVO RAMÍREZ, CHM7 ####[facility] (DEFAULT)[address] [place] [address] Chloride [Moles/Vol] 105 mmol/L Normal 98-108 [facility] Comment on above: Performed By: #### TAVO RAMÍREZ, CHM7 ####[facility] (DEFAULT)[address] [place] [address] CO2 [Moles/Vol] 28 mmol/L Normal 21-31 [facility] Comment on above: Performed By: #### TAVO RAMÍREZ, CHM7 ####[facility] (DEFAULT)[address] [place] [address] Creatinine [Mass/Vol] 1.12 mg/dL Normal 0.70-1.30 [facility] Comment on above: Performed By: #### TAVO RAMÍREZ, CHM7 ####[facility] (DEFAULT)[address] [place] [address] GFR/1.73 sq M.predicted among non-blacks MDRD (S/P/Bld) [Vol rate/Area] 79 mL/min/{1.73_m2} Normal >=60 [facility] Comment on above: Result Comment: Repo rted eGFR is based on the CKD-EPI 2020 equation using creatinine, age, and sex. Performed By: #### TAVO RAMÍREZ, CHM7 ####[facility] (DEFAULT)[address] [place] [address] Glucose [Mass/Vol] 88 mg/dL Normal 70-99 [facility] Comment on above: Performed By: #### TAVO RAMÍREZ, CHM7 ####[facility] (DEFAULT)[address] [place] [address] Osmolality [Osmolality] 294 mosm/kg Normal 278-305 [facility] Comment on above: Performed By: #### TAVO RAMÍREZ, CHM7 ####[facility] (DEFAULT)[address] [place] [address] Potassium [Moles/Vol] 3.8 mmol/L Normal 3.5-5.0 [facility] Comment on above: Performed By: #### TAVO RAMÍREZ, CHM7 ####[facility] (DEFAULT)[address] [place] [address] Sodium [Moles/Vol] 141 mmol/L Normal 135-145 [facility] Comment on above: Performed By: #### TAVO RAMÍREZ, CHM7 ####[facility] (DEFAULT)[address] [place] [address] Urea nitrogen [Mass/Vol] 15 mg/dL Normal 7-25 [facility] Comment on above: Performed By: #### TAVO RAMÍREZ, CHM7 ####[facility] (DEFAULT)[address] [place] [address] Urea nitrogen/Creatinine [Mass ratio] 13 mg/mg Normal [facility] Comment on above: Performed By: #### TAVO RAMÍREZ, CHM7 ####[facility] (DEFAULT)[address] [facility] [address] Cardiac catheterization stud yon 01-20-2024 [facility] Radiology Study observation (narrative) [facility] Radiology Study observation (narrative) [facility] EBV BY PCR, QUANTITATIVE,BLO ODOrdered By: Charlotte Jensen on 01-20-2024 EBV DNA ESTELITA+probe (Unsp spec) [#/Vol] NINF [facility] Interpretation and review of laboratory results Normal [facility] This test was perfor med using a real time PCR assay. The dynamic range for this assay is 1000-5,000,000 IU/mL. A result <1000 IU/mL does not rule out the presence of EBV DNA in quantities below the sensitivity of this assay. This test was developed and its performance characteristics determined by [facility] at The [facility]. It has not been cleared or approved by the FDA. The laboratory is regulated under CLIA as qualified to perform high-complexity testing. This test is used for clinical purposes. It should not be regarded as investigational or for research. [facility] HEPATIC FUNCTION PANELon Albumin [Mass/Vol] 3.7 g/dL 3.5 - 5.0 g/dL [facility] ALP [Catalytic activity/Vol] 73 U/L 32 - 126 U/L [facility] ALT [Catalytic activity/Vol] 12 U/L 10 - 52 U/L [facility] AST [Catalytic activity/Vol] 19 U/L 10 - 39 U/L [facility] Bilirubin [Mass/Vol] 2.1 mg/dL [facility] Bilirubin.direct [Mass/Vol] 0.5 mg/dL [facility] mg/dL [facility] Interpretation and review of laboratory results Abnormal [facility] Protein [Mass/Vol] 6.1 g/dL Low 6.4 - 8.3 g/dL [facility] Albumin [Mass/Vol] 3.7 g/dL Normal 3.5-5.0 [facility] Comment on above: Performed By: #### M TAVO BLOOM CHM7 ####[facility] (DEFAULT)[address] [place] [address] ALP [Catalytic activity/Vol] 73 U/L Normal 32-126 [facility] Comment on above: Performed By: #### M TAVO BLOOM CHM7 ####[facility] (DEFAULT)[address] [place] [address] ALT [Catalytic activity/Vol] 12 U/L Normal 10-52 [facility] Comment on above: Performed By: #### TAVO RAMÍREZ, CHM7 ####[facility] (DEFAULT)[address] [place] [address] AST [Catalytic activity/Vol] 19 U/L Normal 10-39 [facility] Comment on above: Performed By: #### TAVO RAMÍREZ, CHM7 ####[facility] (DEFAULT)[address] [place] [address] Bilirubin [Mass/Vol] 2.1 mg/dL High <1.5 [facility] Comment on above: Performed By: #### TAVO RAMÍREZ, CHM7 ####[facility] (DEFAULT)[address] [place] [address] Bilirubin.indirect [Mass/Vol] 0.5 mg/dL High <0.3 [facility] Comment on above: Performed By: #### TAVO RAMÍREZ, CHM7 ####[facility] (DEFAULT)[address] [place] [address] Protein [Mass/Vol] 6.1 g/dL Low 6.4-8.3 [facility] Comment on above: Performed By: #### TAVO RAMÍREZ, CHM7 ####[facility] (DEFAULT)[address] [place] [address] ITRACONAZOLE LEVELon 024 Hydroxyitraconazole 7.6 mcg/mL Normal [facility] Comment on above: Order Comment: Dilan gregory draw level at specified interval PRIOR to dose. Result Comment: ---- REFERENCE VALUE No therapeutic range established; activity and serumconcentration are similar to parent drug. ADDITIONAL INFORMATION This test was developed and its performance characteristicsdetermined by [facility] in a manner consistent with CLIArequirements. This test has not been cleared or approved bythe U.S. Food and Drug Administration.Test Performed by:[facility] [place] [id number] Director: Rosendo Bose M.D. Ph.D.; CLIA# [id number] Performed By: #### Y ITCON ####[facility] (DEFAULT)[address] [place] [address] Itraconazole 6.0 mcg/mL Normal [facility] Comment on above: Order Comment: Plejoan e draw level at specified interval PRIOR to dose. Result Comment: ---- REFERENCE VALUE-------------------------->0.5 (localized infection), >1.0 (systemic infection) Performed By: #### Y ITCON ####[facility] (DEFAULT)[address] [address] MAGNESIUMon 01-20-2024 Interpretation and review of laboratory results Normal [facility] Magnesium [Mass/Vol] 1.6 mg/dL 1.6 - 2 .6 mg/dL [facility] Magnesium [Mass/Vol] 1.6 mg/dL Normal 1.6-2.6 [facility] Comment on above: Performed By: #### M TAVO BLOOM, CHM7 ####[facility] (DEFAULT)[address] [address] No Panel Informationon 01-20 [facility] POCT CO-OXIMETRYon Hemoglobin (Bld) [Mass/Vol] 12.8 g/dL Low 13.4 - 16.8 g/dL [facility] Interpretation and review of laboratory results Abnormal [facility] Oxyhemoglobin 69 % Low 94 - 98 % [facility] Ordering physician notified. Test performed at address of the patient encounter. [facility] Hemoglobin (Bld) [Mass/Vol] 13.3 g/dL Low 13.4 - 16.8 g/dL [facility] Interpretation and review of laboratory results Abnormal [facility] Oxyhemoglobin 69 % Low 94 - 98 % [facility] Ordering physician notified. Test performed at address of the patient encounter. [facility] PT,INR,PTTon 01-20-2024 aPTT Coag (PPP) [Time] 30.6 s [facility] INR Coag (Bld) [Relative time] 1.2 {INR} High 0.9 - 1.1 [facility] Interpretation and review of laboratory results Abnormal [facility] PT Coag (PPP) [Time] 15.5 s High [facility] aPTT Coag (Bld) [Time] 30.6 s Normal 24.0-34.3 [facility] Comment on above: Performed By: #### P TPTT ####[facility] (DEFAULT)[address] [place] [address] INR Coag (PPP) [Relative time] 1.2 {INR} High 0.9-1.1 [facility] Comment on above: Performed By: #### P TPTT ####[facility] (DEFAULT)[address] [place] [address] PT Coag (PPP) [Time] 15.5 s High 11.9-14.2 [facility] Comment on above: Performed By: #### P TPTT ####[facility] (DEFAULT)[address] [place] [address] TACROLIMUS LEVEL, TROUGH (HI E DRUG LEVEL)Ordered By: Yanira Marcum on 01-20-2024 Interpretation and review of laboratory results Normal [facility] Tacrolimus (Bld) [Mass/Vol] 7.7 ng/mL Bone Marrow Transplant: 4.0-12.0, Therapeutic: 5.0-15.0 [facility] Method performed is a chemiluminescent microparticle immunoasssay on the [employer] i2000. The range is based on experience at [facility] and users should be aware that target concentrations vary widely depending on concomitant therapy, time post-transplant, and desired degree of immunosuppression. [facility] TACROLIMUS LEVEL, TROUGH (HI E DRUG LEVEL)on 01-20-2024 Tacrolimus, Trough 7.7 ng/mL Normal Bone Susana ow Transplant: 4.0-12.0, Therapeutic: 5.0-15.0 [facility] Comment on above: Order Comment: Pleas e draw at specified interval PRIOR to dose. Do not hold dose to wait for level. Specimens batched twice per day, (M-) and once per day weekendsMethod performed is a chemiluminescent microparticle immunoasssay on the [employer] i2000.The range is based on experience at [facility] and users should be aware that target concentrations vary widely depending on concomitant therapy, time post-transplant, and desired degree of immunosuppression. Performed By: #### T ACRO ####[facility] (DEFAULT)[address] [place] [address] CBC,PLATELETSon 01-19-2024 Erythrocyte distribution width (RBC) [Ratio] 13.9 % 10.9 - 14.3 % [facility] Hematocrit (Bld) [Volume fraction] 37.5 % Low 39.6 - 48.8 % [facility] Hemoglobin (Bld) [Mass/Vol] 12.1 g/dL Low 13.4 - 16.8 g/dL [facility] Interpretation and review of laboratory results Abnormal [facility] MCH (RBC) [Entitic mass] 28.3 pg 26.1 - 33.3 pg [facility] MCHC (RBC) [Mass/Vol] 32.3 g/dL 31.9 - 36.5 g/dL [facility] MCV (RBC) [Entitic vol] 87.8 fL 79.0 - 94.5 fL [facility] Platelet mean volume (Bld) [Entitic vol] 10.4 fL 8.7 - 12.3 fL [facility] Platelets (Bld) [#/Vol] 163 10*3/uL 146 - 337 K/uL [facility] RBC (Bld) [#/Vol] 4.27 10*6/uL Low [facility] WBC (Bld) [#/Vol] 3.69 10*3/uL Low 3.73 - 10. 10 K/uL [facility] Hematocrit (Bld) [Volume fraction] 37.5 % Low 39.6-48.8 [facility] Comment on above: Performed By: #### H EMO ####[facility] (DEFAULT)[address] [place] [address] Hemoglobin (Bld) [Mass/Vol] 12.1 g/dL Low 13.4-16.8 [facility] Comment on above: Performed By: #### H EMO ####[facility] (DEFAULT)[address] [place] [address] MCV (RBC) [Entitic vol] 87.8 fL Normal 79.0-94.5 [facility] Comment on above: Performed By: #### H EMO ####[facility] (DEFAULT)[address] [place] [address] Mean Cell Hgb 28.3 pg Normal 26.1-33.3 [facility] Comment on above: Performed By: #### H EMOGC ####[facility] (DEFAULT)[address] [place] [address] Mean Cell Hgb Conc 32.3 g/dL Normal 31.9-36.5 [facility] Comment on above: Performed By: #### H EMOGC ####[facility] (DEFAULT)[address] [place] [address] Platelet mean volume (Bld) [Entitic vol] 10.4 fL Normal 8.7-12.3 [facility] Comment on above: Performed By: #### H [facility] ####[facility] (DEFAULT)[address] [place] [address] Platelets (Bld) [#/Vol] 163 10*3/uL Normal 146-337 [facility] Comment on above: Performed By: #### H EMO ####[facility] (DEFAULT)[address] [place] [address] RBC (Bld) [#/Vol] 4.27 10*6/uL Low 4.38-5.83 [facility] Comment on above: Performed By: #### H [facility] ####[facility] (DEFAULT)[address] [place] [address] RBC Distribution 13.9 % Normal 10.9-14.3 [facility] Comment on above: Performed By: #### H [facility] ####[facility] (DEFAULT)[address] [place] [address] WBC (Bld) [#/Vol] 3.69 10*3/uL Low 3.73-10.10 [facility] Comment on above: Performed By: #### H [facility] ####[facility] (DEFAULT)[address] [place] [address] CHEM 7 (LYTES,BUN,CREA,GLUC) on 01-19-2024 Anion gap [Moles/Vol] 14 mmol/L 7 - 17 mmol/L [facility] Chloride [Moles/Vol] 106 mmol/L 98 - 10 8 mmol/L [facility] CO2 [Moles/Vol] 24 mmol/L 21 - 31 mmol/L [facility] Creatinine [Mass/Vol] 1.13 mg/dL 0.70 - 1.30 mg/dL [facility] eGFR, CKD-EPI, Male 78 - PINF [facility] Comment on above: Reported eGFR is bas ed on the CKD-EPI 2021 equation using creatinine, age, and sex. Glucose [Mass/Vol] 86 mg/dL 70 - 99 mg/dL [facility] Osmolality Calc [Osmolality] 293 [facility] Potassium [Moles/Vol] 3.8 mmol/L 3.5 - 5.0 mmol/L [facility] Sodium [Moles/Vol] 140 mmol/L 135 - 145 mmol/L [facility] Urea nitrogen [Mass/Vol] 16 mg/dL 7 - 25 mg/dL [facility] Urea nitrogen/Creatinine [Mass ratio] 14 mg/mg [facility] Anion gap [Moles/Vol] 14 mmol/L Normal 7-17 [facility] Comment on above: Performed By: #### Rod BLOOM CHM7 ####[facility] (DEFAULT)[address] [place] [address] Chloride [Moles/Vol] 106 mmol/L Normal 98-108 [facility] Comment on above: Performed By: #### Rod BLOOM CHM7 ####[facility] (DEFAULT)[address] [place] [address] CO2 [Moles/Vol] 24 mmol/L Normal 21-31 [facility] Comment on above: Performed By: #### Rod BLOOM CHM7 ####[facility] (DEFAULT)[address] [place] [address] Creatinine [Mass/Vol] 1.13 mg/dL Normal 0.70-1.30 [facility] Comment on above: Performed By: #### Rod BLOOM CHM7 ####[facility] (DEFAULT)[address] [place] [address] GFR/1.73 sq M.predicted among non-blacks MDRD (S/P/Bld) [Vol rate/Area] 78 mL/min/{1.73_m2} Normal >=60 [facility] Comment on above: Result Comment: Repo rted eGFR is based on the CKD-EPI 2021 equation using creatinine, age, and sex. Performed By: #### TJ RAMÍREZ7 ####[facility] (DEFAULT)[address] [place] [address] Glucose [Mass/Vol] 86 mg/dL Normal 70-99 [facility] Comment on above: Performed By: #### TJ RAMÍREZ7 ####[facility] (DEFAULT)[address] [place] [address] Osmolality [Osmolality] 293 mosm/kg Normal 278-305 [facility] Comment on above: Performed By: #### TJ RAMÍREZ7 ####[facility] (DEFAULT)[address] [place] [address] Potassium [Moles/Vol] 3.8 mmol/L Normal 3.5-5.0 [facility] Comment on above: Performed By: #### TJ RAMÍREZ7 ####[facility] (DEFAULT)[address] [place] [address] Sodium [Moles/Vol] 140 mmol/L Normal 135-145 [facility] Comment on above: Performed By: #### TJ RAMÍREZ7 ####[facility] (DEFAULT)[address] [place] [address] Urea nitrogen [Mass/Vol] 16 mg/dL Normal 7-25 [facility] Comment on above: Performed By: #### TJ RAMÍERZ7 ####[facility] (DEFAULT)[address] [facility] [address] Urea nitrogen/Creatinine [Mass ratio] 14 mg/mg Normal [facility] Comment on above: Performed By: #### TJ RAMÍREZ7 ####[facility] (DEFAULT)[address] [place] [address] EBV BY PCR, QUANTITATIVE,BLO ODon 01-19-2024 Ebv By Pcr, Quant, Blood <1000 Normal <1000 [facility] Comment on above: Order Comment: This test was performed using a real time PCR assay. The dynamic range for this assay is 1000-5,000,000 IU/mL. A result <1000 IU/mL does not rule out the presence of EBV DNA in quantities below the sensitivity of this assay. This test was developed and its performance characteristics determined by The [facility] at The [facility]. It has not been cleared or approved by the FDA. The laboratory is regulated under CLIA as qualified to perform high-complexity testing. This test is used for clinical purposes. It should not be regarded as investigational or for research. Performed By: #### E BVPCR ####[facility] (DEFAULT)[address] [place] [address] HISTOPLASMA AND BLASTOMYCES ANTIGEN, ENZYME IMMUNOASSAY, SERMon 01-19-2024 Histoplasma/Blastomy antonia Ag Result Not detected Not Detected [facility] Comment on above: No antigen from Hist oplasma or Blastomyces detected. False negative results may occur depending on extent of disease, and/or site of infection. Repeat testing on a new specimen if clinically indicated. Histoplasma/Blastomy antonia Ag Value Not detected ng/mL [facility] Comment on above: ADDITIONAL INFORMATION This test was developed and its performance characteristics determined by [facility] in a manner consistent with CLIA requirements. This test has not been cleared or approved by the U.S. Food and Drug Administration. Test Performed by: [facility] [place] [id number] [place] [id number] [facility]: Rosendo Bose M.D. Ph.D.; CLIA# [id number] [facility] MAGNESIUMon 01-19-2024 Interpretation and review of laboratory results Normal [facility] Magnesium [Mass/Vol] 1.8 mg/dL 1.6 - 2 .6 mg/dL [facility] Magnesium [Mass/Vol] 1.8 mg/dL Normal 1.6-2.6 [facility] Comment on above: Performed By: #### NATHANIEL RAMÍREZ ####[facility] (DEFAULT)[address] [place] [address] No Panel Informationon 01-19 [facility] TACROLIMUS LEVEL, TROUGH (HI E DRUG LEVEL)Ordered By: Raymundo Mehta on 01-19-2024 Interpretation and review of laboratory results Normal [facility] Tacrolimus (Bld) [Mass/Vol] 6.8 ng/mL Bone Marrow Transplant: 4.0-12.0, Therapeutic: 5.0-15.0 [facility] Method performed is a chemiluminescent microparticle immunoasssay on the [employer] Braider i2000. The range is based on experience at [facility] and users should be aware that target concentrations vary widely depending on concomitant therapy, time post-transplant, and desired degree of immunosuppression. [facility] TACROLIMUS LEVEL, TROUGH (HI E DRUG LEVEL)on 01-19-2024 Tacrolimus, Trough 6.8 ng/mL Normal Bone Susana ow Transplant: 4.0-12.0, Therapeutic: 5.0-15.0 [facility] Comment on above: Order Comment: Pleas e draw at specified interval PRIOR to dose. Do not hold dose to wait for level. Specimens batched twice per day, (M-F) and once per day weekendsMethod performed is a chemiluminescent microparticle immunoasssay on the [employer] Braider i2000.The range is based on experience at [facility] and users should be aware that target concentrations vary widely depending on concomitant therapy, time post-transplant, and desired degree of immunosuppression. Performed By: #### T ACRO ####[facility] (DEFAULT)[address] [place] [id number] US AV fistulaOrdered By: Diana Reyes on 01-19-2024 [facility] Work Phone: US AV fistulaon 01-19-2024 Radiology Study observation (narrative) [facility] AFP TUMOR MARKEROrdered By: Francisca Alaniz on 01-18-2024 AFP.tumor marker [Mass/Vol] ng/mL NINF - 8.1 ng/mL [facility] Comment on above: This test was perfor med on the [employer] IM Immunoassay platform by Siemens which is a two-site sandwich chemiluminescent immunoassay. It is important to note that assays using different manufacturers and/or methods may not be comparable. Interpretation and review of laboratory results Normal [facility] CBC,PLATELETSon 01-18-2024 Erythrocyte distribution width (RBC) [Ratio] 13.9 % 10.9 - 14.3 % [facility] Hematocrit (Bld) [Volume fraction] 38.4 % Low 39.6 - 48.8 % [facility] Hemoglobin (Bld) [Mass/Vol] 12.1 g/dL Low 13.4 - 16.8 g/dL [facility] Interpretation and review of laboratory results Abnormal [facility] MCH (RBC) [Entitic mass] 27.8 pg 26.1 - 33.3 pg [facility] MCHC (RBC) [Mass/Vol] 31.5 g/dL Low 31.9 - 36.5 g/dL [facility] MCV (RBC) [Entitic vol] 88.3 fL 79.0 - 94.5 fL [facility] Platelet mean volume (Bld) [Entitic vol] 10.4 fL 8.7 - 12.3 fL [facility] Platelets (Bld) [#/Vol] 183 10*3/uL 146 - 337 K/uL [facility] RBC (Bld) [#/Vol] 4.35 10*6/uL Low [facility] WBC (Bld) [#/Vol] 3.66 10*3/uL Low 3.73 - 10. 10 K/uL [facility] Hematocrit (Bld) [Volume fraction] 38.4 % Low 39.6-48.8 [facility] Comment on above: Performed By: #### H [facility] ####[facility] (DEFAULT)[address] [place] [address] Hemoglobin (Bld) [Mass/Vol] 12.1 g/dL Low 13.4-16.8 [facility] Comment on above: Performed By: #### [facility] ####[facility] (DEFAULT)[address] [facility] [address] MCV (RBC) [Entitic vol] 88.3 fL Normal 79.0-94.5 [facility] Comment on above: Performed By: #### H EMOGC ####[facility] (DEFAULT)[address] [facility] [address] Mean Cell Hgb 27.8 pg Normal 26.1-33.3 [facility] Comment on above: Performed By: #### H EMOGC ####[facility] (DEFAULT)[address] [place] [address] Mean Cell Hgb Conc 31.5 g/dL Low 31.9-36.5 [facility] Comment on above: Performed By: #### H EMOGC ####[facility] (DEFAULT)[address] [place] [address] Platelet mean volume (Bld) [Entitic vol] 10.4 fL Normal 8.7-12.3 [facility] Comment on above: Performed By: #### H EMOGC ####[facility] (DEFAULT)[address] [place] [address] Platelets (Bld) [#/Vol] 183 10*3/uL Normal 146-337 [facility] Comment on above: Performed By: #### H EMOGC ####[facility] (DEFAULT)[address] [facility] [address] RBC (Bld) [#/Vol] 4.35 10*6/uL Low 4.38-5.83 [facility] Comment on above: Performed By: #### H EMOGC ####[facility] (DEFAULT)[address] [place] [address] RBC Distribution 13.9 % Normal 10.9-14.3 [facility] Comment on above: Performed By: #### H EMOGC ####[facility] (DEFAULT)[address] [place] [address] WBC (Bld) [#/Vol] 3.66 10*3/uL Low 3.73-10.10 [facility] Comment on above: Performed By: #### H [facility] ####[facility] (DEFAULT)[address] [place] [address] CHEM 7 (LYTES,BUN,CREA,GLUC) on 01-18-2024 Anion gap [Moles/Vol] 11 mmol/L 7 - 17 mmol/L [facility] Chloride [Moles/Vol] 108 mmol/L 98 - 10 8 mmol/L [facility] CO2 [Moles/Vol] 26 mmol/L 21 - 31 mmol/L [facility] Creatinine [Mass/Vol] 1.00 mg/dL 0.70 - 1.30 mg/dL [facility] eGFR, CKD-EPI, Male - PINF [facility] Comment on above: Reported eGFR is bas ed on the CKD-EPI 2020 equation using creatinine, age, and sex. Glucose [Mass/Vol] 89 mg/dL 70 - 99 mg/dL [facility] Osmolality Calc [Osmolality] 295 [facility] Potassium [Moles/Vol] 3.9 mmol/L 3.5 - 5.0 mmol/L [facility] Sodium [Moles/Vol] 141 mmol/L 135 - 145 mmol/L [facility] Urea nitrogen [Mass/Vol] 16 mg/dL 7 - 25 mg/dL [facility] Urea nitrogen/Creatinine [Mass ratio] 16 mg/mg [facility] Anion gap [Moles/Vol] 11 mmol/L Normal 7-17 [facility] Comment on above: Performed By: #### C HM7, HFP, MGO, TSHQR ####[facility] (DEFAULT)[address] [place] [address] Chloride [Moles/Vol] 108 mmol/L Normal 98-108 [facility] Comment on above: Performed By: #### C HM7, HFP, MGO, TSHQR ####[facility] (DEFAULT)[address] [place] [address] CO2 [Moles/Vol] 26 mmol/L Normal 21-31 [facility] Comment on above: Performed By: #### C HM7, HFP, MGO, TSHQR ####[facility] (DEFAULT)[address] [place] [address] Creatinine [Mass/Vol] 1.00 mg/dL Normal 0.70-1.30 [facility] Comment on above: Performed By: #### C HM7, HFP, MGO, TSHQR ####[facility] (DEFAULT)[address] [facility] [place] [address] eGFR, CKD-EPI, Male > Normal >=60 [facility] Comment on above: Result Comment: Repo rted eGFR is based on the CKD-EPI 2020 equation using creatinine, age, and sex. Performed By: #### C HM7, HFP, MGO, TSHQR ####[facility] (DEFAULT)[address] [place] [address] Glucose [Mass/Vol] 89 mg/dL Normal 70-99 [facility] Comment on above: Performed By: #### C HM7, HFP, MGO, TSHQR ####[facility] (DEFAULT)[address] [place] [address], [place] [address] Osmolality [Osmolality] 295 mosm/kg Normal 278-305 [facility] Comment on above: Performed By: #### C HM7, HFP, MGO, TSHQR ####[facility] (DEFAULT)[address] [place] [address] Potassium [Moles/Vol] 3.9 mmol/L Normal 3.5-5.0 [facility] Comment on above: Performed By: #### C HM7, HFP, MGO, TSHQR ####[facility] (DEFAULT)[address] [place] [address] Sodium [Moles/Vol] 141 mmol/L Normal 135-145 [facility] Comment on above: Performed By: #### C HM7, HFP, MGO, TSHQR ####[facility] (DEFAULT)[address] [place] [address] Urea nitrogen [Mass/Vol] 16 mg/dL Normal 7-25 [facility] Comment on above: Performed By: #### C HM7, HFP, MGO, TSHQR ####[facility] (DEFAULT)[address] [place] [address] Urea nitrogen/Creatinine [Mass ratio] 16 mg/mg Normal [facility] Comment on above: Performed By: #### C HM7, HFP, MGO, TSHQR ####[facility] (DEFAULT)[address] [place] [address] Cardiac echo study Procedure Ordered By: Gian Carlos on 01-18-2024 Ao ASC index 1.63 cm/m2 [facility] Work Phone: Ao peak meliton 1.46 m/s [facility] Work Phone: Ao SOV index 1.56 cm/m2 [facility] Work Phone: Ao STJ index 1.25 cm/m2 [facility] Work Phone: Ao VTI 35.74 cm [facility] Work Phone: Ascending [facility] 3.[facility]: AV LVOT peak gradient 4 mmHg [facility] Work Phone: AV mean gradient 5 [facility] Work [facility]: [facility] peak gradient 9 mmHG [facility] Work Phone: AV valve area 3.09 cm2 [facility] Work Phone: AV Velocity Ratio 0.73 [facility] Work Phone: VEGA (continuity Vmax) 3.01 cm2 [facility] Work Phone: VEGA (continuity VTI) 3.09 cm2 [facility] Work Phone: VEGA index (continuity Vmax) 1.45 m/s [facility] Work Phone: VEGA index (continuity VTI) 1.49 cm2/m2 [facility] Work Phone: Avg e' pk meliton 0.07 m/s [facility] Work Phone: Avg E/e' ratio 19.45 [facility] Work Phone: Body surface area Derived from formula 2.08 m2 [facility] Work Phone: BP EF 62 % [facility] Work Phone: DI (Vmax) 0.73 [facility] Work Phone: DI (VTI) 0.74 m/2 [facility] Work Phone: E wave decelartion time 180.38 msec [facility] Work Phone: e' lateral pk meliton 0.0789 [facility]/s [facility]: e' lateral pk meliton 0.08 m/s [facility] Work Phone: e' septal pk meliton 0.0653 m/s [facility] Work [facility]: e' septal pk meliton 0.07 m/s [facility] Work Phone: E/A ratio 2.67 [facility] Work Phone: E/e' lateral ratio 17.62 [facility] Work Phone: E/e' septal ratio 21.29 [facility] Work Phone: EF SP 2CH 66 [facility] Work Phone: EF SP 4CH 58 [facility] Work Phone: FS 28 % 28 - 44 % [facility] Work Phone: IVC ostium 2.30 cm [facility] Work Phone: IVS 1.11 cm [facility] Work Phone: LA AREA 2CH 24.36 cm2 [facility] Work Phone: LA area 4CH 20.36 cm2 [facility] Work Phone: LA ESV BP (MOD) 64 mL [facility] Work Phone: LA ESV BP (MOD) index 31 mL/m2 [facility] Work Phone: LA ESV SP 2CH (MOD) 76 mL [facility] Work Phone: LA ESV SP 4CH (MOD) 53 mL [facility] Work Phone: LV EDV BP 180 mL [facility] Work Phone: LV EDV SP 2CH 190 mL [facility] Work Phone: LV EDV SP 4CH 166 mL [facility] Work Phone: LV ESV BP 69 mL [facility] Work Phone: [phone] LV ESV SP 2CH 65 mL [facility] Work Phone: LV ESV SP 4CH 70 mL [facility] Work Phone: LV mass 254.73 g [facility] Work Phone: LV Mass Index 122.5 g/m2 [facility] Work Phone: LV RWT 0.42 [facility] Work Phone: LV stroke volume BP (ml) 111 mL [facility] Work Phone: LV stroke volume index BP 53.37 mL/m2 [facility] Work Phone: LVIDD 5.53 cm [facility] Work Phone: LVIDS 3.97 cm [facility] Work Phone: LVOT area 4.15 cm2 [facility] Work Phone: LVOT diameter 2.30 cm [facility] Work Phone: LVOT peak meliton 1.06 m/s [facility] Work Phone: LVOT peak VTI 26.61 cm [facility] Work Phone: LVOT stroke volume [address] [facility] Work Phone: LVOT stroke volume index 53.13 ml/m2 [facility] Work Phone: Mr max meliton 4.21 m/s [facility] Work Phone: MR VTI 134.50 cm [facility] Work Phone: MV mean gradient 3 mmHg [facility] Work [facility]: MV peak gradient 11 mmHg [facility] Work Phone: MV pk A meliton 0.52 m/s [facility] Work Phone: MV pk E meliton 1.39 m/s [facility] Work Phone: MV stenosis pressure 1/2 time 58.56 ms [facility] Work Phone: MV valve area by continuity eq 2.93 cm2 [facility] Work Phone: MV valve area p 1/2 method 3.76 cm2 [facility] Work Phone: MV VTI 37.70 cm [facility] Work Phone: MVA (continuity VTI) 2.92 cm [facility] Work Phone: [facility] AV VTI RATIO PRE STRESS 0.74 [facility] Work Phone: [facility] ECHO LV BIPLANE SYSTOLIC VOLUME INDEX 33.17 mL/m2 [facility] Work Phone: [facility] ECHO LV BP DIASTOLIC VOLUME INDEX 86.54 mL/m2 [facility] Work Phone: [facility] ECHO MR PEAK GRADIENT 70.94 mmHg [facility] Work Phone: PW 1.16 cm [facility] Work Phone: RA area 4CH (MOD) 14.50 cm2 [facility] Work Phone: RA vol index 4CH (MOD) 18.27 mL/m2 [facility] Work Phone: Right atrium volume 4 chamber method of disks 38 mL [facility] Work Phone: RV Area diastolic 33.20 cm2 [facility] Work Phone: RV Area systolic 21.30 cm2 [facility] Work Phone: RV basal diam 4.52 cm [facility] Work Phone: RV Fractional area change 35.8 % [facility] Work Phone: RV long diam 8.96 cm [facility] Work Phone: RV mid diam 3.70 cm [facility] Work Phone: RV S' 22.01 cm/s [facility] Work Phone: RVOT peak gradient 4 [facility] Work [facility]: RVOT peak meliton 0.96 m/s [facility] Work Phone: RVOT peak VTI 20.86 cm [facility] Work Phone: Sinus 3.24 cm [facility] Work Phone: STJ 2.61 cm [facility] Work Phone: Stroke Volume 111 cm/mL [facility] Work Phone: Stroke volume index 53 [facility] Work Phone: TAPSE 2.19 cm [facility] Work Phone: [facility] Work Phone: Cardiac echo study [...] echocardiography study was performed. Imaging system used: [employer]. Indications Indications for study: shortness of breath. [facility] Radiology Study observation (narrative) [facility] HEPATIC FUNCTION PANELon Albumin [Mass/Vol] 3.5 g/dL 3.5 - 5.0 g/dL [facility] ALP [Catalytic activity/Vol] 70 U/L 32 - 126 U/L [facility] ALT [Catalytic activity/Vol] 8 U/L Low 10 - 52 U/L [facility] AST [Catalytic activity/Vol] 20 U/L 10 - 39 U/L [facility] Bilirubin [Mass/Vol] 1.7 mg/dL High NINF - 1.5 mg/dL [facility] Bilirubin.direct [Mass/Vol] 0.4 mg/dL High NINF - 0.3 mg/dL [facility] Protein [Mass/Vol] 6.0 g/dL Low 6.4 - 8.3 g/dL [facility] Albumin [Mass/Vol] 3.5 g/dL Normal 3.5-5.0 [facility] Comment on above: Performed By: #### C HM7, [facility], MGO, TSHQR ####[facility] (DEFAULT)[address] [place] [address] ALP [Catalytic activity/Vol] 70 U/L Normal 32-126 [facility] Comment on above: Performed By: #### C HM7, HFP, MGO, TSHQR ####[facility] (DEFAULT)[address] [place] [address] ALT [Catalytic activity/Vol] 8 U/L Low 10-52 [facility] Comment on above: Performed By: #### C HM7, HFP, MGO, TSHQR ####[facility] (DEFAULT)[address] [place] [address] AST [Catalytic activity/Vol] 20 U/L Normal 10-39 [facility] Comment on above: Performed By: #### C HM7, HFP, MGO, TSHQR ####[facility] (DEFAULT)[address] [place] [address] Bilirubin [Mass/Vol] 1.7 mg/dL High <1.5 [facility] Comment on above: Performed By: #### C HM7, HFP, MGO, TSHQR ####[facility] (DEFAULT)[address] [place] [address] Bilirubin.indirect [Mass/Vol] 0.4 mg/dL High <0.3 [facility] Comment on above: Performed By: #### C HM7, HFP, MGO, TSHQR ####[facility] (DEFAULT)[address] [place] [address] Protein [Mass/Vol] 6.0 g/dL Low 6.4-8.3 [facility] Comment on above: Performed By: #### C HM7, HFP, MGO, TSHQR ####[facility] (DEFAULT)[address] [place] [address] MAGNESIUMon 02-19-2024 Magnesium [Mass/Vol] 1.5 mg/dL Low 1.6 - 2 .6 mg/dL [facility] Magnesium [Mass/Vol] 1.5 mg/dL Low 1.6-2.6 [facility] Comment on above: Performed By: #### C HM7, HFP, MGO, TSHQR ####[facility] (DEFAULT)[address] [place] [id number] No Panel Informationon 01-18 Interpretation and review of laboratory results Abnormal [facility] PT,INR,PTTon 01-18-2024 aPTT Coag (PPP) [Time] 30.0 s [facility] INR Coag (Bld) [Relative time] 1.1 {INR} 0.9 - 1.1 [facility] Interpretation and review of laboratory results Abnormal [facility] PT Coag (PPP) [Time] 14.5 s High [facility] aPTT Coag (Bld) [Time] 30.0 s Normal 24.0-34.3 [facility] Comment on above: Performed By: #### P TPTT ####[facility] (DEFAULT)[address] [place] [address] INR Coag (PPP) [Relative time] 1.1 {INR} Normal 0.9-1.1 [facility] Comment on above: Performed By: #### P TPTT ####[facility] (DEFAULT)[address] [place] [address] PT Coag (PPP) [Time] 14.5 s High 11.9-14.2 [facility] Comment on above: Performed By: #### P TPTT ####[facility] (DEFAULT)[address] [place] [address] TSH W/FT4 REFLEXon Interpretation and review of laboratory results Normal [facility] TSH Qn 2.660 m[IU]/L [facility] TSH 2.660 uIU/mL Normal 0.550-4.780 [facility] Comment on above: Performed By: #### C HM7, HFP, MGO, TSHQR ####[facility] (DEFAULT)[address] [place] [address] AFP TUMOR MARKERon AFP Tumor Marker <2.2 Normal <8.1 [facility] Comment on above: Result Comment: This test was performed on the [employer] Immunoassay platform by codesy which is a two-site sandwich chemiluminescent immunoassay. It is important to note that assays using different manufacturers and/or methods may not be comparable. Performed By: #### A FPTMR ####[facility] (DEFAULT)[address] [place] [id number] DARYL AURIS SCREEN BY PCRO rdered By: Mynor Alejandro on 01-17-2024 Daryl auris Screen by PCR Not detected Not Detected [facility] Interpretation and review of laboratory results Normal [facility] This test was perfor med using a real-time PCR assay. This test was developed, and its performance characteristics determined by [facility] at [facility]. It has not been cleared or approved by the FDA. The laboratory is regulated under CLIA as qualified to perform high-complexity testing. This test is used for clinical purposes. It should not be regarded as investigational or for research. [facility] CBC,PLATELETSon 01-17-2024 Erythrocyte distribution width (RBC) [Ratio] 14.0 % 10.9 - 14.3 % [facility] Hematocrit (Bld) [Volume fraction] 37.2 % Low 39.6 - 48.8 % [facility] Hemoglobin (Bld) [Mass/Vol] 12.0 g/dL Low 13.4 - 16.8 g/dL [facility] Interpretation and review of laboratory results Abnormal [facility] MCH (RBC) [Entitic mass] 27.9 pg 26.1 - 33.3 pg [facility] MCHC (RBC) [Mass/Vol] 32.3 g/dL 31.9 - 36.5 g/dL [facility] MCV (RBC) [Entitic vol] 86.5 fL 79.0 - 94.5 fL [facility] Platelet mean volume (Bld) [Entitic vol] 10.5 fL 8.7 - 12.3 fL [facility] Platelets (Bld) [#/Vol] 159 10*3/uL 146 - 337 K/uL [facility] RBC (Bld) [#/Vol] 4.30 10*6/uL Low [facility] WBC (Bld) [#/Vol] 3.69 10*3/uL Low 3.73 - 10. 10 K/uL [facility] Hematocrit (Bld) [Volume fraction] 37.2 % Low 39.6-48.8 [facility] Comment on above: Performed By: #### H [facility] ####[facility] (DEFAULT)[address] [place] [address] Hemoglobin (Bld) [Mass/Vol] 12.0 g/dL Low 13.4-16.8 [facility] Comment on above: Performed By: #### H [facility] ####[facility] (DEFAULT)[address] [place] [address] MCV (RBC) [Entitic vol] 86.5 fL Normal 79.0-94.5 [facility] Comment on above: Performed By: #### H [facility] ####[facility] (DEFAULT)[address] [place] [address] Mean Cell Hgb 27.9 pg Normal 26.1-33.3 [facility] Comment on above: Performed By: #### H EMO ####[facility] (DEFAULT)[address] [place] [address] Mean Cell Hgb Conc 32.3 g/dL Normal 31.9-36.5 [facility] Comment on above: Performed By: #### H EMO ####[facility] (DEFAULT)[address] [place] [address] Platelet mean volume (Bld) [Entitic vol] 10.5 fL Normal 8.7-12.3 [facility] Comment on above: Performed By: #### H EMO ####[facility] (DEFAULT)[address] [place] [address] Platelets (Bld) [#/Vol] 159 10*3/uL Normal 146-337 [facility] Comment on above: Performed By: #### H EMO ####[facility] (DEFAULT)[address] [place] [address] RBC (Bld) [#/Vol] 4.30 10*6/uL Low 4.38-5.83 [facility] Comment on above: Performed By: #### H EMO ####[facility] (DEFAULT)[address] [place] [address] RBC Distribution 14.0 % Normal 10.9-14.3 [facility] Comment on above: Performed By: #### H EMOGC ####[facility] (DEFAULT)[address] [place] [address] WBC (Bld) [#/Vol] 3.69 10*3/uL Low 3.73-10.10 [facility] Comment on above: Performed By: #### H EMO ####[facility] (DEFAULT)[address] [place] [address] CHEM 7 (LYTES,BUN,CREA,GLUC) on 01-17-2024 Anion gap [Moles/Vol] 13 mmol/L 7 - 17 mmol/L [facility] Chloride [Moles/Vol] 109 mmol/L High 98 - 10 8 mmol/L [facility] CO2 [Moles/Vol] 21 mmol/L 21 - 31 mmol/L [facility] Creatinine [Mass/Vol] 1.04 mg/dL 0.70 - 1.30 mg/dL [facility] eGFR, CKD-EPI, Male 86 - PINF [facility] Comment on above: Reported eGFR is bas ed on the CKD-EPI 2020 equation using creatinine, age, and sex. Glucose [Mass/Vol] 82 mg/dL 70 - 99 mg/dL [facility] Osmolality Calc [Osmolality] 292 [facility] Potassium [Moles/Vol] 4.4 mmol/L 3.5 - 5.0 mmol/L [facility] Sodium [Moles/Vol] 139 mmol/L 135 - 145 mmol/L [facility] Urea nitrogen [Mass/Vol] 17 mg/dL 7 - 25 mg/dL [facility] Urea nitrogen/Creatinine [Mass ratio] 16 mg/mg [facility] Anion gap [Moles/Vol] 13 mmol/L Normal 7-17 [facility] Comment on above: Performed By: #### C HMJessica, HFP, MGO ####[facility] (DEFAULT)[address] [place] [address] Chloride [Moles/Vol] 109 mmol/L High 98-108 [facility] Comment on above: Performed By: #### Chinedu HMJessica, HFP, MGO ####[facility] (DEFAULT)[address] [place] [address] CO2 [Moles/Vol] 21 mmol/L Normal 21-31 [facility] Comment on above: Performed By: #### Chinedu HMJessica, HFP, MGO ####[facility] (DEFAULT)[address] [place] [address] Creatinine [Mass/Vol] 1.04 mg/dL Normal 0.70-1.30 [facility] Comment on above: Performed By: #### Chinedu HM7, HFP, MGO ####[facility] (DEFAULT)[address] [place] [address] GFR/1.73 sq M.predicted among non-blacks MDRD (S/P/Bld) [Vol rate/Area] 86 mL/min/{1.73_m2} Normal >=60 [facility] Comment on above: Result Comment: Repo rted eGFR is based on the CKD-EPI 2020 equation using creatinine, age, and sex. Performed By: #### C HM7, HFP, MGO ####[facility] (DEFAULT)[address] [place] [address] Glucose [Mass/Vol] 82 mg/dL Normal 70-99 [facility] Comment on above: Performed By: #### C HM7, HFP, MGO ####[facility] (DEFAULT)[address] [place] [address] Osmolality [Osmolality] 292 mosm/kg Normal 278-305 [facility] Comment on above: Performed By: #### Chinedu HM7, HFP, MGO ####[facility] (DEFAULT)[address] [place] [address] Potassium [Moles/Vol] 4.4 mmol/L Normal 3.5-5.0 [facility] Comment on above: Performed By: #### C HM7, HFP, MGO ####[facility] (DEFAULT)[address] [place] [address] Sodium [Moles/Vol] 139 mmol/L Normal 135-145 [facility] Comment on above: Performed By: #### Chinedu HM7, HFP, MGO ####[facility] (DEFAULT)[address] [place] [address] Urea nitrogen [Mass/Vol] 17 mg/dL Normal 7-25 [facility] Comment on above: Performed By: #### Chinedu HM7, HFP, MGO ####[facility] (DEFAULT)[address] [place] [address] Urea nitrogen/Creatinine [Mass ratio] 16 mg/mg Normal [facility] Comment on above: Performed By: #### Chinedu HM7, HFP, MGO ####[facility] (DEFAULT)[address] [place] [address] CT ABDOMEN/PELVIS WITHOUT CO NTRASTon 01-17-2024 CT ABDOMEN/PELVIS WITHOUT CONTRAST Normal [facility] CT Abdomen and Pelvis WO con traston [...] unremarkable. Kidneys: Severe atrophy of the bilateral [place] kidney is without hydronephrosis. Right lower quadrant [...] unremarkable. Kidneys: Severe atrophy of the bilateral [place] kidney is without hydronephrosis. Right lower quadrant [...] the middle lobe. Trace left pleural effusion. [facility] Radiology Study observation (narrative) [facility] HEPATIC FUNCTION PANELon Albumin [Mass/Vol] 3.5 g/dL 3.5 - 5.0 g/dL [facility] ALP [Catalytic activity/Vol] 73 U/L 32 - 126 U/L [facility] ALT [Catalytic activity/Vol] 7 U/L Low 10 - 52 U/L [facility] AST [Catalytic activity/Vol] 25 U/L 10 - 39 U/L [facility] Bilirubin [Mass/Vol] 1.8 mg/dL High NINF - 1.5 mg/dL [facility] Bilirubin.direct [Mass/Vol] 0.3 mg/dL High NINF - 0.3 mg/dL [facility] Protein [Mass/Vol] 6.0 g/dL Low 6.4 - 8.3 g/dL [facility] Albumin [Mass/Vol] 3.5 g/dL Normal 3.5-5.0 [facility] Comment on above: Performed By: #### C HM7, HFP, MGO ####[facility] (DEFAULT)[address] [place] [address] ALP [Catalytic activity/Vol] 73 U/L Normal 32-126 [facility] Comment on above: Performed By: #### C HM7, HFP, MGO ####[facility] (DEFAULT)[address] [place] [address] ALT [Catalytic activity/Vol] 7 U/L Low 10-52 [facility] Comment on above: Performed By: #### C HM7, HFP, MGO ####[facility] (DEFAULT)[address] [place] [address] AST [Catalytic activity/Vol] 25 U/L Normal 10-39 [facility] Comment on above: Performed By: #### C HM7, HFP, MGO ####[facility] (DEFAULT)[address] [place] [address] Bilirubin [Mass/Vol] 1.8 mg/dL High <1.5 [facility] Comment on above: Performed By: #### Chinedu HM7, HFP, MGO ####[facility] (DEFAULT)[address] [place] [address] Bilirubin.indirect [Mass/Vol] 0.3 mg/dL High <0.3 [facility] Comment on above: Performed By: #### C HM7, HFP, MGO ####[facility] (DEFAULT)[address] [place] [address] Protein [Mass/Vol] 6.0 g/dL Low 6.4-8.3 [facility] Comment on above: Performed By: #### C HM7, HFP, MGO ####[facility] (DEFAULT)[address] [place] [address] HISTOPLASMA AND BLASTOMYCES ANTIGEN, ENZYME IMMUNOASSAY, SERMon 01-17-2024 Histoplasma/Blastomy antonia Ag Result Not detected Normal Not Detected [facility] Comment on above: Result Comment: No a ntigen from Histoplasma or Blastomyces detected. Falsenegative results may occur depending on extent of disease,and/or site of infection. Repeat testing on a new specimenif clinically indicated. Performed By: #### H CORAL ####[facility] (DEFAULT)[address] [place] [address] Histoplasma/Blastomy antonia Ag Value Not detected Normal [facility] Comment on above: Result Comment: ---- ADDITIONAL INFORMATION This test was developed and its performance characteristicsdetermined by [facility] in a manner consistent with CLIArequirements. This test has not been cleared or approved bythe U.S. Food and Drug Administration.Test Performed by:[address] Director: Rosendo Bose M.D. Ph.D.; CLIA# [id number] Performed By: #### H CORAL ####[facility] (DEFAULT)[address] [place] [address] MAGNESIUMon 01-17-2024 Interpretation and review of laboratory results Normal [facility] Magnesium [Mass/Vol] 1.7 mg/dL 1.6 - 2 .6 mg/dL [facility] Magnesium [Mass/Vol] 1.7 mg/dL Normal 1.6-2.6 [facility] Comment on above: Performed By: #### C HM7, HFP, MGO ####[facility] (DEFAULT)[address] [place] [address] No Panel Informationon 01-17 Interpretation and review of laboratory results Abnormal [facility] PT,INR,PTTon 01-17-2024 aPTT Coag (PPP) [Time] 29.9 s [facility] INR Coag (Bld) [Relative time] 1.1 {INR} 0.9 - 1.1 [facility] Interpretation and review of laboratory results Abnormal [facility] PT Coag (PPP) [Time] 14.5 s High [facility] aPTT Coag (Bld) [Time] 29.9 s Normal 24.0-34.3 [facility] Comment on above: Performed By: #### P TPTT ####[facility] (DEFAULT)[address] [place] [address] INR Coag (PPP) [Relative time] 1.1 {INR} Normal 0.9-1.1 [facility] Comment on above: Performed By: #### P TPTT ####[facility] (DEFAULT)[address] [place] [address] PT Coag (PPP) [Time] 14.5 s High 11.9-14.2 [facility] Comment on above: Performed By: #### P TPTT ####[facility] (DEFAULT)[address] [place] [address] B-TYPE NATRIURETIC PEPTIDE ( BRAIN)on 01-16-2024 Interpretation and review of laboratory results Abnormal [facility] Natriuretic peptide B (Bld) [Mass/Vol] 212 pg/mL High 0 - 100 pg/mL [facility] Natriuretic peptide B (Bld) [Mass/Vol] 212 pg/mL High 0-100 [facility] Comment on above: Performed By: #### B UNMANNED EQUIPMENT OPERATOR ####[facility] (DEFAULT)[address] [place] [address] CALCIUMon 01-16-2024 Calcium [Mass/Vol] 8.5 mg/dL Low 8.6 - 10. 5 mg/dL [facility] Calcium [Mass/Vol] 8.5 mg/dL Low 8.6-10.5 [facility] Comment on above: Performed By: #### C A, CHM7, IPB, MGO, HFP ####[facility] (DEFAULT)[address] [place] [address] DARYL AURIS SCREEN BY PCRo n 01-16-2024 Daryl auris Screen by PCR Not detected Normal Not Detected [facility] Comment on above: Order Comment: This test was performed using a real-time PCR assay. This test was developed, and its performance characteristics determined by [facility]. It has not been cleared or approved by the FDA. The laboratory is regulated under CLIA as qualified to perform high-complexity testing. This test is used for clinical purposes. It should not be regarded as investigational or for research. Performed By: #### C ANDIDA AURIS SCREEN BY PCR ####[facility] (DEFAULT)[address] [place] [address] CBC AND ELECTRONIC DIFFon Basophils (Bld) [#/Vol] K/uL 0.00 - 0.09 K/uL [facility] Basophils/100 WBC (Bld) 0.6 % [facility] Differential cell count method Nom (Bld) Electronic Differential [facility] Eosinophils (Bld) [#/Vol] 0.09 10*3/uL 0.00 - 0.48 K/uL [facility] Eosinophils/100 WBC (Bld) 2.5 % [facility] Erythrocyte distribution width (RBC) [Ratio] 14.0 % 10.9 - 14.3 % [facility] Hematocrit (Bld) [Volume fraction] 37.4 % Low 39.6 - 48.8 % [facility] Hemoglobin (Bld) [Mass/Vol] 12.1 g/dL Low 13.4 - 16.8 g/dL [facility] Immature granulocytes (Bld) [#/Vol] K/uL NINF - 0.07 K/uL [facility] Immature granulocytes/100 WBC (Bld) 0.3 % [facility] Interpretation and review of laboratory results Abnormal [facility] Lymphocytes (Bld) [#/Vol] 1.16 10*3/uL 0.83 - 3.57 K/uL [facility] Lymphocytes/100 WBC (Bld) 32.0 % [facility] MCH (RBC) [Entitic mass] 28.4 pg 26.1 - 33.3 pg [facility] MCHC (RBC) [Mass/Vol] 32.4 g/dL 31.9 - 36.5 g/dL [facility] MCV (RBC) [Entitic vol] 87.8 fL 79.0 - 94.5 fL [facility] Monocytes (Bld) [#/Vol] 0.43 10*3/uL 0.24 - 0.93 K/uL [facility] Monocytes/100 WBC (Bld) 11.9 % [facility] Neutrophils (Bld) [#/Vol] 1.91 10*3/uL 1.57 - 6.19 K/uL [facility] Nucleated RBC/100 WBC (Bld) [Ratio] 0.0 % NINF [facility] Platelet mean volume (Bld) [Entitic vol] 10.1 fL 8.7 - 12.3 fL [facility] Platelets (Bld) [#/Vol] 155 10*3/uL 146 - 337 K/uL [facility] RBC (Bld) [#/Vol] 4.26 10*6/uL Low [facility] Segmented neutrophils/100 WBC (Bld) 52.7 % [facility] WBC (Bld) [#/Vol] 3.62 10*3/uL Low 3.73 - 10. 10 K/uL [facility] Abs Baso Auto < Normal 0.00-0.09 [facility] Comment on above: Performed By: #### L [id number] ####[facility] (DEFAULT)[address] [place] [address] Basophils/100 WBC (Bld) 0.6 % Normal [facility] Comment on above: Performed By: #### L [id number] ####[facility] (DEFAULT)[address] [place] [address] DIFF STATUS Electronic Differential Normal [facility] Comment on above: Performed By: #### L [id number] ####[facility] (DEFAULT)[address] [place] [address], [place] [address] Eosinophils (Bld) [#/Vol] 0.09 10*3/uL Normal 0.00-0.48 [facility] Comment on above: Performed By: #### L [id number] ####[facility] (DEFAULT)[address] [place] [address] Eosinophils/100 WBC (Bld) 2.5 % Normal [facility] Comment on above: Performed By: #### L [id number] ####[facility] (DEFAULT)[address] [place] [address] Hematocrit (Bld) [Volume fraction] 37.4 % Low 39.6-48.8 [facility] Comment on above: Performed By: #### L [id number] ####[facility] (DEFAULT)[address] [place] [address] Hemoglobin (Bld) [Mass/Vol] 12.1 g/dL Low 13.4-16.8 [facility] Comment on above: Performed By: #### L [id number] ####[facility] (DEFAULT)[address] [place], [place] [address], [place] [address] Immature Grans % 0.3 % Normal [facility] Comment on above: Performed By: #### L [id number] ####[facility] (DEFAULT)[address] [place], [place] [address], [place] [address] Immature Grans Absolute < Normal <=0.07 [facility] Comment on above: Performed By: #### L [id number] ####[facility] (DEFAULT)[address] [place] [address] Lymphocytes (Bld) [#/Vol] 1.16 10*3/uL Normal 0.83-3.57 [facility] Comment on above: Performed By: #### L [id number] ####[facility] (DEFAULT)[address] [place] [address] Lymphocytes/100 WBC (Bld) 32.0 % Normal [facility] Comment on above: Performed By: #### L [id number] ####[facility] (DEFAULT)[address] [place] [address] MCV (RBC) [Entitic vol] 87.8 fL Normal 79.0-94.5 [facility] Comment on above: Performed By: #### L [id number] ####[facility] (DEFAULT)[address] [place] [address] Mean Cell Hgb 28.4 pg Normal 26.1-33.3 [facility] Comment on above: Performed By: #### L [id number] ####[facility] (DEFAULT)[address] [place] [address] Mean Cell Hgb Conc 32.4 g/dL Normal 31.9-36.5 [facility] Comment on above: Performed By: #### L [id number] ####[facility] (DEFAULT)[address] [place] [address] Monocytes (Bld) [#/Vol] 0.43 10*3/uL Normal 0.24-0.93 [facility] Comment on above: Performed By: #### L [id number] ####[facility] (DEFAULT)[address] [place] [address] Monocytes/100 WBC (Bld) 11.9 % Normal [facility] Comment on above: Performed By: #### L [id number] ####[facility] (DEFAULT)[address] [place] [address] Nucleated RBC 0.0 /100 WBC Normal <=0.2 [facility] Comment on above: Performed By: #### L [id number] ####[facility] (DEFAULT)[address] [place] [address] Platelet mean volume (Bld) [Entitic vol] 10.1 fL Normal 8.7-12.3 [facility] Comment on above: Performed By: #### L [id number] ####[facility] (DEFAULT)[address] [place] [address] Platelets (Bld) [#/Vol] 155 10*3/uL Normal 146-337 [facility] Comment on above: Performed By: #### L [id number] ####[facility] (DEFAULT)[address] [place] [address] RBC (Bld) [#/Vol] 4.26 10*6/uL Low 4.38-5.83 [facility] Comment on above: Performed By: #### L [id number] ####[facility] (DEFAULT)[address] [place] [address] RBC Distribution 14.0 % Normal 10.9-14.3 [facility] Comment on above: Performed By: #### L [id number] ####[facility] (DEFAULT)[address] [place] [address] Segs + Bands Auto 52.7 % Normal [facility] Comment on above: Performed By: #### L [id number] ####[facility] (DEFAULT)[address] [facility] [address] Segs + Bands,Absolute Auto 1.91 K/uL Normal 1.57-6.19 [facility] Comment on above: Performed By: #### L [id number] ####[facility] (DEFAULT)[address] [place] [address] WBC (Bld) [#/Vol] 3.62 10*3/uL Low 3.73-10.10 [facility] Comment on above: Performed By: #### L [id number] ####[facility] (DEFAULT)[address] [place] [address] CHEM 7 (LYTES,BUN,CREA,GLUC) on 01-16-2024 Anion gap [Moles/Vol] 11 mmol/L 7 - 17 mmol/L [facility] Chloride [Moles/Vol] 108 mmol/L 98 - 10 8 mmol/L [facility] CO2 [Moles/Vol] 24 mmol/L 21 - 31 mmol/L [facility] Creatinine [Mass/Vol] 1.04 mg/dL 0.70 - 1.30 mg/dL [facility] eGFR, CKD-EPI, Male 86 - PINF [facility] Comment on above: Reported eGFR is bas ed on the CKD-EPI 2020 equation using creatinine, age, and sex. Glucose [Mass/Vol] 95 mg/dL 70 - 99 mg/dL [facility] Osmolality Calc [Osmolality] 293 [facility] Potassium [Moles/Vol] 4.0 mmol/L 3.5 - 5.0 mmol/L [facility] Sodium [Moles/Vol] 139 mmol/L 135 - 145 mmol/L [facility] Urea nitrogen [Mass/Vol] 19 mg/dL 7 - 25 mg/dL [facility] Urea nitrogen/Creatinine [Mass ratio] 18 mg/mg [facility] Anion gap [Moles/Vol] 11 mmol/L Normal 7-17 [facility] Comment on above: Performed By: #### C A, CHM7, IPB, MGO, HFP ####[facility] (DEFAULT)[address] [place] [address] Chloride [Moles/Vol] 108 mmol/L Normal 98-108 [facility] Comment on above: Performed By: #### C A, CHM7, IPB, MGO, HFP ####[facility] (DEFAULT)[address] [place] [address] CO2 [Moles/Vol] 24 mmol/L Normal 21-31 [facility] Comment on above: Performed By: #### C Tray, CHM7, IPB, MGO, HFP ####[facility] (DEFAULT)[address] [place] [address] Creatinine [Mass/Vol] 1.04 mg/dL Normal 0.70-1.30 [facility] Comment on above: Performed By: #### Chinedu Feliz, CHM7, IPB, MGO, HFP ####[facility] (DEFAULT)[address] [place] [address] GFR/1.73 sq M.predicted among non-blacks MDRD (S/P/Bld) [Vol rate/Area] 86 mL/min/{1.73_m2} Normal >=60 [facility] Comment on above: Result Comment: Repo rted eGFR is based on the CKD-EPI 2020 equation using creatinine, age, and sex. Performed By: #### C Tray, CHM7, IPB, MGO, HFP ####[facility] (DEFAULT)[address] [place] [address] Glucose [Mass/Vol] 95 mg/dL Normal 70-99 [facility] Comment on above: Performed By: #### Chinedu Feliz, CHM7, IPB, MGO, HFP ####[facility] (DEFAULT)[address] [place] [address], [place] [address] Osmolality [Osmolality] 293 mosm/kg Normal 278-305 [facility] Comment on above: Performed By: #### C Tray, CHM7, IPB, MGO, HFP ####[facility] (DEFAULT)[address] [place] [address] Potassium [Moles/Vol] 4.0 mmol/L Normal 3.5-5.0 [facility] Comment on above: Performed By: #### Chinedu Feliz, CHM7, IPB, MGO, HFP ####[facility] (DEFAULT)[address] [place] [address] Sodium [Moles/Vol] 139 mmol/L Normal 135-145 [facility] Comment on above: Performed By: #### C A, CHM7, IPB, MGO, HFP ####[facility] (DEFAULT)[address] [place] [address] Urea nitrogen [Mass/Vol] 19 mg/dL Normal 7-25 [facility] Comment on above: Performed By: #### C A, CHM7, IPB, MGO, HFP ####[facility] (DEFAULT)[address] [place] [address] Urea nitrogen/Creatinine [Mass ratio] 18 mg/mg Normal [facility] [facility] [place] Comment on above: Performed By: #### C A, CHM7, IPB, MGO, HFP ####[facility] (DEFAULT)[address] [place] [address] D-DIMER,QUANTITATIVEOrdered By: Shaji Kelly on 01-16-2024 Fibrin D-dimer FEU (PPP) [Mass/Vol] 0.67 High [facility] Comment on above: The D-Dimer assay is intended for use in conjuction with a clinical pretest probability (PTP) assessment model to exclude pulmonary embolism (PE) and as an aid in the diagnosis of Deep Vein Thrombosis (DVT) in outpatients suspected of PE or DVT. For the assay in use at The [facility] ([facility]), a cutoff of <0.50 mcg/mL has a Negative Predictive Value of 99.7% for exclusion of DVT in low and moderate PTP patients. Interpretation and review of laboratory results Abnormal [facility] D-DIMER,QUANTITATIVEon 01-16 D-Dimer, High Sensitivity 0.67 mcg/mL FEU High <0.50 [facility] Comment on above: Result Comment: The D-Dimer assay is intended for use in conjuction with a clinical pretest probability (PTP) assessment model to exclude pulmonary embolism (PE) and as an aid in the diagnosis of Deep Vein Thrombosis (DVT) in outpatients suspected of PE or DVT. For the assay in use at [facility] ([facility]), a cutoff of <0.50 mcg/mL has a Negative Predictive Value of 99.7% for exclusion of DVT in low and moderate PTP patients. Performed By: #### P TPTT, HSDDI ####[facility] (DEFAULT)[address] [place] [id number] HEPATIC FUNCTION PANELon Albumin [Mass/Vol] 3.7 g/dL 3.5 - 5.0 g/dL [facility] ALP [Catalytic activity/Vol] 70 U/L 32 - 126 U/L [facility] ALT [Catalytic activity/Vol] 8 U/L Low 10 - 52 U/L [facility] AST [Catalytic activity/Vol] 21 U/L 10 - 39 U/L [facility] Bilirubin [Mass/Vol] 1.9 mg/dL High NINF - 1.5 mg/dL [facility] Bilirubin.direct [Mass/Vol] 0.4 mg/dL High NINF - 0.3 mg/dL [facility] Protein [Mass/Vol] 6.1 g/dL Low 6.4 - 8.3 g/dL [facility] Albumin [Mass/Vol] 3.7 g/dL Normal 3.5-5.0 [facility] Comment on above: Performed By: #### C Tray CHM7, IPB, MGO, HFP ####[facility] (DEFAULT)[address] [place] [address] ALP [Catalytic activity/Vol] 70 U/L Normal 32-126 [facility] Comment on above: Performed By: #### C Tray, CHM7, IPB, MGO, HFP ####[facility] (DEFAULT)[address] [facility] [place] [address] ALT [Catalytic activity/Vol] 8 U/L Low 10-52 [facility] Comment on above: Performed By: #### C Tray, CHM7, IPB, MGO, HFP ####[facility] (DEFAULT)[address] [place] [address] AST [Catalytic activity/Vol] 21 U/L Normal 10-39 [facility] Comment on above: Performed By: #### C Tray, CHM7, IPB, MGO, HFP ####[facility] (DEFAULT)[address] [place] [address] Bilirubin [Mass/Vol] 1.9 mg/dL High <1.5 [facility] Comment on above: Performed By: #### C Tray, CHM7, IPB, MGO, HFP ####[facility] (DEFAULT)[address] [place] [address] Bilirubin.indirect [Mass/Vol] 0.4 mg/dL High <0.3 [facility] Comment on above: Performed By: #### C Tray, CHM7, IPB, MGO, HFP ####[facility] (DEFAULT)[address] [facility] [place] [address] Protein [Mass/Vol] 6.1 g/dL Low 6.4-8.3 [facility] Comment on above: Performed By: #### C Tray, CHM7, IPB, MGO, HFP ####[facility] (DEFAULT)[address] [place] [address] MAGNESIUMon 01-16-2024 Magnesium [Mass/Vol] 1.7 mg/dL 1.6 - 2 .6 mg/dL [facility] Magnesium [Mass/Vol] 1.7 mg/dL Normal 1.6-2.6 [facility] Comment on above: Performed By: #### C Tray, CHM7, IPB, MGO, HFP ####[facility] (DEFAULT)[address] [place] [address] No Panel Informationon 01-16 Interpretation and review of laboratory results Abnormal [facility] Interpretation and review of laboratory results Normal [facility] PHOSPHATE, INORGANICon 01-16 Phosphate [Mass/Vol] 4.1 mg/dL 2.2 - 4 .6 mg/dL [facility] Phosphorous 4.1 mg/dL Normal 2.2-4.6 [facility] Comment on above: Performed By: #### C A, CHM7, IPB, MGO, HFP ####[facility] (DEFAULT)[address] [place] [address] PT,INR,PTTon 01-16-2024 aPTT Coag (PPP) [Time] 29.6 s [facility] INR Coag (Bld) [Relative time] 1.2 {INR} High 0.9 - 1.1 [facility] Interpretation and review of laboratory results Abnormal [facility] PT Coag (PPP) [Time] 14.9 s High [facility] aPTT Coag (Bld) [Time] 29.6 s Normal 24.0-34.3 [facility] Comment on above: Performed By: #### P TPERIC HSDADDIE ####[facility] (DEFAULT)[address] [place] [address] INR Coag (PPP) [Relative time] 1.2 {INR} High 0.9-1.1 [facility] Comment on above: Performed By: #### P TPTT, HSDDI ####[facility] (DEFAULT)[address] [place] [address] PT Coag (PPP) [Time] 14.9 s High 11.9-14.2 [facility] Comment on above: Performed By: #### P TPTT, HSDDI ####[facility] (DEFAULT)[address] [place] [address] TACROLIMUS LEVEL, TROUGH (HI E DRUG LEVEL)Ordered By: Jimy Castillo on 01-16-2024 Interpretation and review of laboratory results Normal [facility] Tacrolimus (Bld) [Mass/Vol] 5.7 ng/mL Bone Marrow Transplant: 4.0-12.0, Therapeutic: 5.0-15.0 [facility] Method performed is a chemiluminescent microparticle immunoasssay on the [employer] i2000. The range is based on experience at [facility] and users should be aware that target concentrations vary widely depending on concomitant therapy, time post-transplant, and desired degree of immunosuppression. [facility] TACROLIMUS LEVEL, TROUGH (HI E DRUG LEVEL)on 01-16-2024 Tacrolimus, Trough 5.7 ng/mL Normal Bone Susana ow Transplant: 4.0-12.0, Therapeutic: 5.0-15.0 [facility] Comment on above: Order Comment: Pleas e draw at specified interval PRIOR to dose. Do not hold dose to wait for level. Specimens batched twice per day, (M-F) and once per day weekendsMethod performed is a chemiluminescent microparticle immunoasssay on the [employer] i2000.The range is based on experience at [facility] and users should be aware that target concentrations vary widely depending on concomitant therapy, time post-transplant, and desired degree of immunosuppression. Performed By: #### T ACRO ####[facility] (DEFAULT)[address] [place] [address] US ABDOMEN LIVER DOPPLERon 0 01-16-2024 US ABDOMEN LIVER DOPPLER Normal [facility] US.doppler Abdominal vessels on 01-16-2024 IMPRESSION: 1. [...] pleural effusion. Trace right upper quadrant ascites. [facility] Radiology Study observation (narrative) [facility] US.doppler Abdominal vessels Ordered By: Iona Duran on 01-16-2024 [facility] Work Phone: XR CHEST PA AND LATERAL 2 EWSon 01-16-2024 XR CHEST PA AND LATERAL 2 VIEWS Normal [facility] XR Chest PA and Lateralon IMPRESSION: Moderate [...] Normal IMPRESSION IMPRESSION: Moderate right pleural effusion. [facility] Radiology Study observation (narrative) [facility] XR Chest PA and LateralOrder ed By: Daisha Patterson on 01-16-2024 [facility] Work Phone: ALL CBC WITH AUTO DIFFon BASOPHILS ABSOLUTE AUTO 0.0 [facility] Basophils/100 WBC (Bld) 0.5 % 0.2 - 2.0 % [facility] Eosinophils/100 WBC (Bld) 2.8 % 0.9 - 7.0 % [facility] Erythrocyte distribution width (RBC) [Ratio] 13.8 % 11.0 - 15.0 % [facility] Hematocrit (Bld) [Volume fraction] 43.7 % 42.0 - 54.0 % [facility] Hemoglobin (Bld) [Mass/Vol] 14.0 g/dL 14.0 - 18.0 g/dL [facility] IMMATURE GRANULOCYTES ABS AUTO 0.01 [facility] Immature granulocytes/100 WBC (Bld) 0.3 % 0.0 - 0.5 % [facility] LYMPHOCYTES ABSOLUTE AUTO 1.5 [facility] Lymphocytes/100 WBC (Bld) 37.5 % 20.5 - 60.0 % [facility] MCH (RBC) [Entitic mass] 28.4 pg 25.9 - 34.0 pg [facility] MCHC (RBC) [Mass/Vol] 32.0 g/dL 29.9 - 35.2 g/dL [facility] MCV (RBC) [Entitic vol] 88.6 fL 80.0 - 94.0 fL [facility] MONOCYTES ABSOLUTE AUTO 0.5 [facility] Monocytes/100 WBC (Bld) 11.9 % 1.7 - 12.0 % [facility] NEUTROPHILS ABSOLUTE AUTO 1.9 [facility] Neutrophils/100 WBC (Bld) 47.0 % 43.0 - 75.0 % [facility] Platelet mean volume (Bld) [Entitic vol] 10.3 fL 9.5 - 13.5 fL [facility] EO # 0.1 [facility] PLT 180 [facility] RBC 4.93 [facility] WBC 4.0 [facility] ALL CBC WITH AUTO DIFFon BASOPHILS ABSOLUTE AUTO 0.0 [facility] Basophils/100 WBC (Bld) 0.5 % 0.2 - 2.0 % [facility] Eosinophils/100 WBC (Bld) 2.6 % 0.9 - 7.0 % [facility] Erythrocyte distribution width (RBC) [Ratio] 13.5 % 11.0 - 15.0 % [facility] Hematocrit (Bld) [Volume fraction] 43.8 % 42.0 - 54.0 % [facility] Hemoglobin (Bld) [Mass/Vol] 14.0 g/dL 14.0 - 18.0 g/dL [facility] IMMATURE GRANULOCYTES ABS AUTO 0.00 [facility] Immature granulocytes/100 WBC (Bld) 0.0 % 0.0 - 0.5 % [facility] Interpretation and review of laboratory results Abnormal [facility] LYMPHOCYTES ABSOLUTE AUTO 1.8 [facility] Lymphocytes/100 WBC (Bld) 45.2 % 20.5 - 60.0 % [facility] MCH (RBC) [Entitic mass] 27.9 pg 25.9 - 34.0 pg [facility] MCHC (RBC) [Mass/Vol] 32.0 g/dL 29.9 - 35.2 g/dL [facility] MCV (RBC) [Entitic vol] 87.4 fL 80.0 - 94.0 fL [facility] MONOCYTES ABSOLUTE AUTO 0.4 [facility] Monocytes/100 WBC (Bld) 9.6 % 1.7 - 12.0 % [facility] NEUTROPHILS ABSOLUTE AUTO 1.6 [facility] Neutrophils/100 WBC (Bld) 42.1 % Low 43.0 - 75.0 % [facility] Platelet mean volume (Bld) [Entitic vol] 9.8 fL 9.5 - 13.5 fL [facility] TBH EO # 0.1 [facility] TB PLT 180 [facility] RBC 5.01 [facility] WBC 3.9 Low [facility] CHEM 7 (LYTES,BUN,CREA,GLUC) on 09-11-2023 Anion gap [Moles/Vol] 13 mmol/L 7 - 17 mmol/L [facility] Chloride [Moles/Vol] 111 mmol/L High 98 - 10 8 mmol/L [facility] CO2 [Moles/Vol] 20 mmol/L Low 21 - 31 mmol/L [facility] Creatinine [Mass/Vol] 1.13 mg/dL 0.70 - 1.30 mg/dL [facility] eGFR, CKD-EPI, Male 78 - PINF [facility] Glucose [Mass/Vol] 109 mg/dL High 70 - 99 mg/dL [facility] Interpretation and review of laboratory results Abnormal [facility] Osmolality Calc [Osmolality] 295 [facility] Potassium [Moles/Vol] 4.3 mmol/L 3.5 - 5.0 mmol/L [facility] Sodium [Moles/Vol] 140 mmol/L 135 - 145 mmol/L [facility] Urea nitrogen [Mass/Vol] 16 mg/dL 7 - 25 mg/dL [facility] Urea nitrogen/Creatinine [Mass ratio] 14 mg/mg [facility] Anion gap [Moles/Vol] 13 mmol/L Normal 7-17 [facility] Comment on above: Performed By: #### Rod BLOOM CHM7 ####[facility] (DEFAULT)[address] [place] [address] Chloride [Moles/Vol] 111 mmol/L High 98-108 [facility] Comment on above: Performed By: #### Rod BLOOM CHM7 ####[facility] (DEFAULT)[address] [place] [address] CO2 [Moles/Vol] 20 mmol/L Low 21-31 [facility] Comment on above: Performed By: #### Rod BLOOM CHM7 ####[facility] (DEFAULT)[address] [place] [address] Creatinine [Mass/Vol] 1.13 mg/dL Normal 0.70-1.30 [facility] Comment on above: Performed By: #### Rod BLOOM CHM7 ####[facility] (DEFAULT)[address] [place] [address] GFR/1.73 sq M.predicted among non-blacks MDRD (S/P/Bld) [Vol rate/Area] 78 mL/min/{1.73_m2} Normal >=60 [facility] Comment on above: Result Comment: Repo rted eGFR is based on the CKD-EPI 2020 equation using creatinine, age, and sex. Performed By: #### TJ RAMÍREZ7 ####[facility] (DEFAULT)[address] [place] [address] Glucose [Mass/Vol] 109 mg/dL High 70-99 [facility] Comment on above: Performed By: #### TJ RAMÍREZ7 ####[facility] (DEFAULT)[address] [place] [address] Osmolality [Osmolality] 295 mosm/kg Normal 278-305 [facility] Comment on above: Performed By: #### TJ RAMÍREZ7 ####[facility] (DEFAULT)[address] [place] [address] Potassium [Moles/Vol] 4.3 mmol/L Normal 3.5-5.0 [facility] Comment on above: Performed By: #### TJ RAMÍREZ7 ####[facility] (DEFAULT)[address] [place] [address] Sodium [Moles/Vol] 140 mmol/L Normal 135-145 [facility] Comment on above: Performed By: #### TJ RAMÍREZ7 ####[facility] (DEFAULT)[address] [place] [address] Urea nitrogen [Mass/Vol] 16 mg/dL Normal 7-25 [facility] Comment on above: Performed By: #### TJ RAMÍREZ7 ####[facility] (DEFAULT)[address] [place] [address] Urea nitrogen/Creatinine [Mass ratio] 14 mg/mg Normal [facility] Comment on above: Performed By: #### TJ RAMÍREZ7 ####[facility] (DEFAULT)[address] [place] [address] GLUCOSE POCon 09-11-2023 Glucose [Mass/Vol] 108 mg/dL High 70 - 99 mg/dL [facility] Interpretation and review of laboratory results Abnormal [facility] POC Sample Type CAPBL [facility] Legionella sp identified Org specific cx Nom (Unsp spec)on 09-11-2023 Bacteria identified Cx Nom (Unsp spec) NO GROWTH DAY 7 OF 7 [facility] MAGNESIUMon 09-11-2023 Interpretation and review of laboratory results Normal [facility] Magnesium [Mass/Vol] 1.6 mg/dL 1.6 - 2 .6 mg/dL [facility] Magnesium [Mass/Vol] 1.6 mg/dL Normal 1.6-2.6 [facility] Comment on above: Performed By: #### M NATHANIEL BLOOM ####[facility] (DEFAULT)[address] [place] [id number] No Panel Informationon 09-11 [facility] TACROLIMUS LEVEL, TROUGH (HI E DRUG LEVEL)on 09-11-2023 Interpretation and review of laboratory results Normal [facility] Tacrolimus (Bld) [Mass/Vol] 11.5 ng/mL [facility] Tacrolimus, Trough 11.5 ng/mL Normal Bone Susana ow Transplant: 4.0-12.0, Therapeutic: 5.0-15.0 [facility] Comment on above: Order Comment: Pleas e draw at specified interval PRIOR to dose. Do not hold dose to wait for level. Specimens batched twice per day, (M-F) and once per day weekendsMethod performed is a chemiluminescent microparticle immunoasssay on the [employer] i2000.The range is based on experience at [facility] and users should be aware that target concentrations vary widely depending on concomitant therapy, time post-transplant, and desired degree of immunosuppression. Performed By: #### T ACRO ####[facility] (DEFAULT)[address] [place] [id number] CBC,PLATELETSon 09-10-2023 Erythrocyte distribution width (RBC) [Ratio] 13.9 % 10.9 - 14.3 % [facility] Hematocrit (Bld) [Volume fraction] 40.0 % 39.6 - 48.8 % [facility] Hemoglobin (Bld) [Mass/Vol] 12.7 g/dL Low 13.4 - 16.8 g/dL [facility] Interpretation and review of laboratory results Abnormal [facility] MCH (RBC) [Entitic mass] 27.3 pg 26.1 - 33.3 pg [facility] MCHC (RBC) [Mass/Vol] 31.8 g/dL Low 31.9 - 36.5 g/dL [facility] MCV (RBC) [Entitic vol] 86.0 fL 79.0 - 94.5 fL [facility] Platelet mean volume (Bld) [Entitic vol] 9.5 fL 8.7 - 12.3 fL [facility] Platelets (Bld) [#/Vol] 225 10*3/uL 146 - 337 K/uL [facility] RBC (Bld) [#/Vol] 4.65 10*6/uL [facility] WBC (Bld) [#/Vol] 6.52 10*3/uL 3.73 - 10. 10 K/uL [facility] Hematocrit (Bld) [Volume fraction] 40.0 % Normal 39.6-48.8 [facility] Comment on above: Performed By: #### H [facility] ####[facility] (DEFAULT)[address] [place] [address] Hemoglobin (Bld) [Mass/Vol] 12.7 g/dL Low 13.4-16.8 [facility] Comment on above: Performed By: #### H [facility] ####[facility] (DEFAULT)[address] [place] [address] MCV (RBC) [Entitic vol] 86.0 fL Normal 79.0-94.5 [facility] Comment on above: Performed By: #### H [facility] ####[facility] (DEFAULT)[address] [place] [address] Mean Cell Hgb 27.3 pg Normal 26.1-33.3 [facility] Comment on above: Performed By: #### H EMOGC ####[facility] (DEFAULT)[address] [place] [address] Mean Cell Hgb Conc 31.8 g/dL Low 31.9-36.5 [facility] Comment on above: Performed By: #### H EMOGC ####[facility] (DEFAULT)[address] [place] [address] Platelet mean volume (Bld) [Entitic vol] 9.5 fL Normal 8.7-12.3 [facility] Comment on above: Performed By: #### H EMOGC ####[facility] (DEFAULT)[address] [place] [address] Platelets (Bld) [#/Vol] 225 10*3/uL Normal 146-337 [facility] Comment on above: Performed By: #### H EMOGC ####[facility] (DEFAULT)[address] [place] [address] RBC (Bld) [#/Vol] 4.65 10*6/uL Normal 4.38-5.83 [facility] Comment on above: Performed By: #### H EMOGC ####[facility] (DEFAULT)[address] [place] [address] RBC Distribution 13.9 % Normal 10.9-14.3 [facility] Comment on above: Performed By: #### H EMOGC ####[facility] (DEFAULT)[address] [place] [address] WBC (Bld) [#/Vol] 6.52 10*3/uL Normal 3.73-10.10 [facility] Comment on above: Performed By: #### H EMOGC ####[facility] (DEFAULT)[address] [place] [address] CHEM 7 (LYTES,BUN,CREA,GLUC) on 09-10-2023 Anion gap [Moles/Vol] 13 mmol/L 7 - 17 mmol/L [facility] Chloride [Moles/Vol] 111 mmol/L High 98 - 10 8 mmol/L [facility] CO2 [Moles/Vol] 20 mmol/L Low 21 - 31 mmol/L [facility] Creatinine [Mass/Vol] 1.27 mg/dL 0.70 - 1.30 mg/dL [facility] eGFR, CKD-EPI, Male 68 - PINF [facility] Glucose [Mass/Vol] 100 mg/dL High 70 - 99 mg/dL [facility] Osmolality Calc [Osmolality] 293 [facility] Potassium [Moles/Vol] 4.4 mmol/L 3.5 - 5.0 mmol/L [facility] Sodium [Moles/Vol] 140 mmol/L 135 - 145 mmol/L [facility] Urea nitrogen [Mass/Vol] 12 mg/dL 7 - 25 mg/dL [facility] Urea nitrogen/Creatinine [Mass ratio] 9 mg/mg [facility] Anion gap [Moles/Vol] 13 mmol/L Normal 7-17 [facility] Comment on above: Performed By: #### NATHANIEL RAMÍREZ, HFP ####[facility] (DEFAULT)[address] [place] [address] Chloride [Moles/Vol] 111 mmol/L High 98-108 [facility] Comment on above: Performed By: #### NATHANIEL RAMÍREZ, HFP ####[facility] (DEFAULT)[address] [place] [address] CO2 [Moles/Vol] 20 mmol/L Low 21-31 [facility] Comment on above: Performed By: #### NATHANIEL RAMÍREZ, HFP ####[facility] (DEFAULT)[address] [place] [address] Creatinine [Mass/Vol] 1.27 mg/dL Normal 0.70-1.30 [facility] Comment on above: Performed By: #### NATHANIEL RAMÍREZ, HFP ####[facility] (DEFAULT)[address] [place] [address] GFR/1.73 sq M.predicted among non-blacks MDRD (S/P/Bld) [Vol rate/Area] 68 mL/min/{1.73_m2} Normal >=60 [facility] Comment on above: Result Comment: Repo rted eGFR is based on the CKD-EPI 2020 equation using creatinine, age, and sex. Performed By: #### NATHANIEL RAMÍREZ, HFP ####[facility] (DEFAULT)[address] [place] [address] Glucose [Mass/Vol] 100 mg/dL High 70-99 [facility] Comment on above: Performed By: #### NATHANIEL RAMÍREZ, HFP ####[facility] (DEFAULT)[address] [place] [address] Osmolality [Osmolality] 293 mosm/kg Normal 278-305 [facility] Comment on above: Performed By: #### NATHANIEL RAMÍREZ, HFP ####[facility] (DEFAULT)[address] [place] [address] Potassium [Moles/Vol] 4.4 mmol/L Normal 3.5-5.0 [facility] Comment on above: Performed By: #### NATHANIEL RAMÍREZ, HFP ####[facility] (DEFAULT)[address] [place] [address] Sodium [Moles/Vol] 140 mmol/L Normal 135-145 [facility] Comment on above: Performed By: #### NATHANIEL RAMÍREZ, HFP ####[facility] (DEFAULT)[address] [place] [address] Urea nitrogen [Mass/Vol] 12 mg/dL Normal 7-25 [facility] Comment on above: Performed By: #### NATHANIEL RAMÍREZ, HFP ####[facility] (DEFAULT)[address] [facility] [place] [address] Urea nitrogen/Creatinine [Mass ratio] 9 mg/mg Normal [facility] Comment on above: Performed By: #### M NATHANIEL BLOOM, HFP ####[facility] (DEFAULT)[address] [facility] [place] [address] HEPATIC FUNCTION PANELon Albumin [Mass/Vol] 3.3 g/dL Low 3.5 - 5.0 g/dL [facility] ALP [Catalytic activity/Vol] 143 U/L High 32 - 126 U/L [facility] ALT [Catalytic activity/Vol] 28 U/L 10 - 52 U/L [facility] AST [Catalytic activity/Vol] 29 U/L 10 - 39 U/L [facility] Bilirubin [Mass/Vol] 0.9 mg/dL NINF - 1.5 mg/dL [facility] Bilirubin.direct [Mass/Vol] 0.2 mg/dL NINF - 0.3 mg/dL [facility] Protein [Mass/Vol] 6.8 g/dL 6.4 - 8.3 g/dL [facility] Albumin [Mass/Vol] 3.3 g/dL Low 3.5-5.0 [facility] Comment on above: Performed By: #### M NATHANIEL BLOOM, HFP ####[facility] (DEFAULT)[address] [place] [address] ALP [Catalytic activity/Vol] 143 U/L High 32-126 [facility] Comment on above: Performed By: #### M NATHANIEL BLOOM, HFP ####[facility] (DEFAULT)[address] [place] [address] ALT [Catalytic activity/Vol] 28 U/L Normal 10-52 [facility] Comment on above: Performed By: #### M NATHANIEL BLOOM, HFP ####[facility] (DEFAULT)[address] [place] [address] AST [Catalytic activity/Vol] 29 U/L Normal 10-39 [facility] Comment on above: Performed By: #### Rod BLOOM CHM7, HFP ####[facility] (DEFAULT)[address] [place] [address] Bilirubin [Mass/Vol] 0.9 mg/dL Normal <1.5 [facility] Comment on above: Performed By: #### Rod BLOOM CHM7, HFP ####[facility] (DEFAULT)[address] [place] [address] Bilirubin.indirect [Mass/Vol] 0.2 mg/dL Normal <0.3 [facility] Comment on above: Performed By: #### TJ RAMÍREZ7, HFP ####[facility] (DEFAULT)[address] [place] [address] Protein [Mass/Vol] 6.8 g/dL Normal 6.4-8.3 [facility] Comment on above: Performed By: #### Rod BLOOM CHM7, HFP ####[facility] (DEFAULT)[address] [place] [address] MAGNESIUMon 09-10-2023 Interpretation and review of laboratory results Normal [facility] Magnesium [Mass/Vol] 1.9 mg/dL 1.6 - 2 .6 mg/dL [facility] Magnesium [Mass/Vol] 1.9 mg/dL Normal 1.6-2.6 [facility] Comment on above: Performed By: #### Rod BLOOM CHM7, HFP ####[facility] (DEFAULT)[address] [place] [address] No Panel Informationon 09-10 Interpretation and review of laboratory results Abnormal [facility] TACROLIMUS LEVEL, TROUGH (HI E DRUG LEVEL)Ordered By: Jimy Castillo on 09-10-2023 Interpretation and review of laboratory results Normal [facility] Tacrolimus (Bld) [Mass/Vol] 11.8 ng/mL [facility] TACROLIMUS LEVEL, TROUGH (HI E DRUG LEVEL)on 09-10-2023 Tacrolimus, Trough 11.8 ng/mL Normal [facility] Transplant: 4.0-12.0, Therapeutic: 5.0-15.0 [facility] Comment on above: Order Comment: Pleas e draw at specified interval PRIOR to dose. Do not hold dose to wait for level. Specimens batched twice per day, (M-F) and once per day weekendsMethod performed is a chemiluminescent microparticle immunoasssay on the [employer] i2000.The range is based on experience at [facility] and users should be aware that target concentrations vary widely depending on concomitant therapy, time post-transplant, and desired degree of immunosuppression. Performed By: #### T ACRO ####[facility] (DEFAULT)[address] [place] [address] CHEM 7 (LYTES,BUN,CREA,GLUC) on 09-09-2023 Anion gap [Moles/Vol] 14 mmol/L 7 - 17 mmol/L [facility] Chloride [Moles/Vol] 113 mmol/L High 98 - 10 8 mmol/L [facility] CO2 [Moles/Vol] 18 mmol/L Low 21 - 31 mmol/L [facility] Creatinine [Mass/Vol] 1.03 mg/dL 0.70 - 1.30 mg/dL [facility] eGFR, CKD-EPI, Male 87 - PINF [facility] Glucose [Mass/Vol] 106 mg/dL High 70 - 99 mg/dL [facility] Interpretation and review of laboratory results Abnormal [facility] Osmolality Calc [Osmolality] 294 [facility] Potassium [Moles/Vol] 4.0 mmol/L 3.5 - 5.0 mmol/L [facility] Sodium [Moles/Vol] 141 mmol/L 135 - 145 mmol/L [facility] Urea nitrogen [Mass/Vol] 10 mg/dL 7 - 25 mg/dL [facility] Urea nitrogen/Creatinine [Mass ratio] 10 mg/mg [facility] Anion gap [Moles/Vol] 14 mmol/L Normal 7-17 [facility] Comment on above: Performed By: #### JO ANN RAMÍREZ, CHM7 ####[facility] (DEFAULT)[address] [place] [address] Chloride [Moles/Vol] 113 mmol/L High 98-108 [facility] Comment on above: Performed By: #### JO ANN RAMÍREZ, CHM7 ####[facility] (DEFAULT)[address] [place] [address] CO2 [Moles/Vol] 18 mmol/L Low 21-31 [facility] Comment on above: Performed By: #### JO ANN RAMÍREZ, CHM7 ####[facility] (DEFAULT)[address] [place] [address] Creatinine [Mass/Vol] 1.03 mg/dL Normal 0.70-1.30 [facility] Comment on above: Performed By: #### JOA NN RAMÍREZ, CHM7 ####[facility] (DEFAULT)[address] [place] [address] GFR/1.73 sq M.predicted among non-blacks MDRD (S/P/Bld) [Vol rate/Area] 87 mL/min/{1.73_m2} Normal >=60 [facility] Comment on above: Result Comment: Repo rted eGFR is based on the CKD-EPI 2020 equation using creatinine, age, and sex. Performed By: #### JO ANN RAMÍREZ, CHM7 ####[facility] (DEFAULT)[address] [facility] [address] Glucose [Mass/Vol] 106 mg/dL High 70-99 [facility] Comment on above: Performed By: #### JO ANN RAMÍREZ, CHM7 ####[facility] (DEFAULT)[address] [place] [address] Osmolality [Osmolality] 294 mosm/kg Normal 278-305 [facility] Comment on above: Performed By: #### JO ANN RAMÍREZ CHM7 ####[facility] (DEFAULT)[address] [place] [address] Potassium [Moles/Vol] 4.0 mmol/L Normal 3.5-5.0 [facility] Comment on above: Performed By: #### JO ANN RAMÍREZ CHM7 ####[facility] (DEFAULT)[address] [place] [address] Sodium [Moles/Vol] 141 mmol/L Normal 135-145 [facility] Comment on above: Performed By: #### JO ANN RAMÍREZ CHM7 ####[facility] (DEFAULT)[address] [place] [address] Urea nitrogen [Mass/Vol] 10 mg/dL Normal 7-25 [facility] Comment on above: Performed By: #### JO ANN RAMÍREZ CHM7 ####[facility] (DEFAULT)[address] [place] [address] Urea nitrogen/Creatinine [Mass ratio] 10 mg/mg Normal [facility] Comment on above: Performed By: #### JO ANN RAMÍREZ, TJ7 ####[facility] (DEFAULT)[address] [place] [address] MAGNESIUMon 09-09-2023 Magnesium [Mass/Vol] 1.6 mg/dL 1.6 - 2 .6 mg/dL [facility] Magnesium [Mass/Vol] 1.6 mg/dL Normal 1.6-2.6 [facility] Comment on above: Performed By: #### JO ANN RAMÍREZ CHM7 ####[facility] (DEFAULT)[address] [place] [address] No Panel Informationon 09-09 Interpretation and review of laboratory results Normal [facility] PHOSPHATE, INORGANICon 09-09 Phosphate [Mass/Vol] 3.8 mg/dL 2.2 - 4 .6 mg/dL [facility] Phosphorous 3.8 mg/dL Normal 2.2-4.6 [facility] Comment on above: Performed By: #### M MERLE, IPB, CHM7 ####[facility] (DEFAULT)[address] [place] [address] TACROLIMUS LEVEL, TROUGH (HI E DRUG LEVEL)on 09-09-2023 Interpretation and review of laboratory results Normal [facility] Tacrolimus (Bld) [Mass/Vol] 9.2 ng/mL [facility] Tacrolimus, Trough 9.2 ng/mL Normal [facility] Transplant: 4.0-12.0, Therapeutic: 5.0-15.0 [facility] Comment on above: Order Comment: Pleas e draw at specified interval PRIOR to dose. Do not hold dose to wait for level. Specimens batched twice per day, (M-F) and once per day weekendsMethod performed is a chemiluminescent microparticle immunoasssay on the [employer] i2000.The range is based on experience at [facility] and users should be aware that target concentrations vary widely depending on concomitant therapy, time post-transplant, and desired degree of immunosuppression. Performed By: #### T ACRO ####[facility] (DEFAULT)[address] [place] [address] CBC,PLATELETSon 09-08-2023 Erythrocyte distribution width (RBC) [Ratio] 13.6 % 10.9 - 14.3 % [facility] Hematocrit (Bld) [Volume fraction] 36.1 % Low 39.6 - 48.8 % [facility] Hemoglobin (Bld) [Mass/Vol] 11.6 g/dL Low 13.4 - 16.8 g/dL [facility] Interpretation and review of laboratory results Abnormal [facility] MCH (RBC) [Entitic mass] 27.4 pg 26.1 - 33.3 pg [facility] MCHC (RBC) [Mass/Vol] 32.1 g/dL 31.9 - 36.5 g/dL [facility] MCV (RBC) [Entitic vol] 85.1 fL 79.0 - 94.5 fL [facility] Platelet mean volume (Bld) [Entitic vol] 9.5 fL 8.7 - 12.3 fL [facility] Platelets (Bld) [#/Vol] 182 10*3/uL 146 - 337 K/uL [facility] RBC (Bld) [#/Vol] 4.24 10*6/uL Low [facility] WBC (Bld) [#/Vol] 4.59 10*3/uL 3.73 - 10. 10 K/uL [facility] Hematocrit (Bld) [Volume fraction] 36.1 % Low 39.6-48.8 [facility] Comment on above: Performed By: #### H [facility] ####[facility] (DEFAULT)[address] [place] [address] Hemoglobin (Bld) [Mass/Vol] 11.6 g/dL Low 13.4-16.8 [facility] Comment on above: Performed By: #### [facility] ####[facility] (DEFAULT)[address] [place] [address] MCV (RBC) [Entitic vol] 85.1 fL Normal 79.0-94.5 [facility] Comment on above: Performed By: #### [facility] ####[facility] (DEFAULT)[address] [place] [address] Mean Cell Hgb 27.4 pg Normal 26.1-33.3 [facility] Comment on above: Performed By: #### H EMO ####[facility] (DEFAULT)[address] [place] [address] Mean Cell Hgb Conc 32.1 g/dL Normal 31.9-36.5 [facility] Comment on above: Performed By: #### H EMO ####[facility] (DEFAULT)[address] [place] [address] Platelet mean volume (Bld) [Entitic vol] 9.5 fL Normal 8.7-12.3 [facility] Comment on above: Performed By: #### H EMO ####[facility] (DEFAULT)[address] [place] [address] Platelets (Bld) [#/Vol] 182 10*3/uL Normal 146-337 [facility] Comment on above: Performed By: #### H EMO ####[facility] (DEFAULT)[address] [place] [address] RBC (Bld) [#/Vol] 4.24 10*6/uL Low 4.38-5.83 [facility] Comment on above: Performed By: #### H EMO ####[facility] (DEFAULT)[address] [place] [address] RBC Distribution 13.6 % Normal 10.9-14.3 [facility] Comment on above: Performed By: #### H EMO ####[facility] (DEFAULT)[address] [place] [address] WBC (Bld) [#/Vol] 4.59 10*3/uL Normal 3.73-10.10 [facility] Comment on above: Performed By: #### H EMO ####[facility] (DEFAULT)[address] [place] [address] CHEM 7 (LYTES,BUN,CREA,GLUC) on 09-08-2023 Anion gap [Moles/Vol] 12 mmol/L 7 - 17 mmol/L [facility] Chloride [Moles/Vol] 113 mmol/L High 98 - 10 8 mmol/L [facility] CO2 [Moles/Vol] 21 mmol/L 21 - 31 mmol/L [facility] Creatinine [Mass/Vol] 1.14 mg/dL 0.70 - 1.30 mg/dL [facility] eGFR, CKD-EPI, Male 77 - PINF [facility] Glucose [Mass/Vol] 107 mg/dL High 70 - 99 mg/dL [facility] Osmolality Calc [Osmolality] 296 [facility] Potassium [Moles/Vol] 3.9 mmol/L 3.5 - 5.0 mmol/L [facility] Sodium [Moles/Vol] 142 mmol/L 135 - 145 mmol/L [facility] Urea nitrogen [Mass/Vol] 11 mg/dL 7 - 25 mg/dL [facility] Urea nitrogen/Creatinine [Mass ratio] 10 mg/mg [facility] Anion gap [Moles/Vol] 12 mmol/L Normal 7-17 [facility] Comment on above: Performed By: #### M GO, IPB, HFP, CHM7 ####[facility] (DEFAULT)[address] [place] [address] Chloride [Moles/Vol] 113 mmol/L High 98-108 [facility] Comment on above: Performed By: #### M GO, IPB, HFP, CHM7 ####[facility] (DEFAULT)[address] [place] [address] CO2 [Moles/Vol] 21 mmol/L Normal 21-31 [facility] Comment on above: Performed By: #### M GO, IPB, HFP, CHM7 ####[facility] (DEFAULT)[address] [place] [address] Creatinine [Mass/Vol] 1.14 mg/dL Normal 0.70-1.30 [facility] Comment on above: Performed By: #### M GO, IPB, HFP, CHM7 ####[facility] (DEFAULT)[address] [place] [address] GFR/1.73 sq M.predicted among non-blacks MDRD (S/P/Bld) [Vol rate/Area] 77 mL/min/{1.73_m2} Normal >=60 [facility] Comment on above: Result Comment: Repo rted eGFR is based on the CKD-EPI 2020 equation using creatinine, age, and sex. Performed By: #### M GO, IPB, HFP, CHM7 ####[facility] (DEFAULT)[address] [place] [address] Glucose [Mass/Vol] 107 mg/dL High 70-99 [facility] Comment on above: Performed By: #### M GO, IPB, HFP, CHM7 ####[facility] (DEFAULT)[address] [place] [address] Osmolality [Osmolality] 296 mosm/kg Normal 278-305 [facility] Comment on above: Performed By: #### M GO, IPB, HFP, CHM7 ####[facility] (DEFAULT)[address] [place] [address] Potassium [Moles/Vol] 3.9 mmol/L Normal 3.5-5.0 [facility] Comment on above: Performed By: #### M GO, IPB, HFP, CHM7 ####[facility] (DEFAULT)[address] [place] [address] Sodium [Moles/Vol] 142 mmol/L Normal 135-145 [facility] Comment on above: Performed By: #### M GO, IPB, HFP, CHM7 ####[facility] (DEFAULT)[address] [place] [address] Urea nitrogen [Mass/Vol] 11 mg/dL Normal 7-25 [facility] Comment on above: Performed By: #### M GO, IPB, HFP, CHM7 ####[facility] (DEFAULT)[address] [place] [address] Urea nitrogen/Creatinine [Mass ratio] 10 mg/mg Normal [facility] Comment on above: Performed By: #### M GO, IPB, HFP, CHM7 ####[facility] (DEFAULT)[address] [place] [address] HEPATIC FUNCTION PANELon Albumin [Mass/Vol] 2.9 g/dL Low 3.5 - 5.0 g/dL [facility] ALP [Catalytic activity/Vol] 133 U/L High 32 - 126 U/L [facility] ALT [Catalytic activity/Vol] 23 U/L 10 - 52 U/L [facility] AST [Catalytic activity/Vol] 23 U/L 10 - 39 U/L [facility] Bilirubin [Mass/Vol] 0.8 mg/dL NINF - 1.5 mg/dL [facility] Bilirubin.direct [Mass/Vol] 0.2 mg/dL NINF - 0.3 mg/dL [facility] Protein [Mass/Vol] 5.9 g/dL Low 6.4 - 8.3 g/dL [facility] Albumin [Mass/Vol] 2.9 g/dL Low 3.5-5.0 [facility] Comment on above: Performed By: #### M GO, IPB, HFP, CHM7 ####[facility] (DEFAULT)[address] [place] [address] ALP [Catalytic activity/Vol] 133 U/L High 32-126 [facility] Comment on above: Performed By: #### M GO, IPB, HFP, CHM7 ####[facility] (DEFAULT)[address] [place] [address] ALT [Catalytic activity/Vol] 23 U/L Normal 10-52 [facility] Comment on above: Performed By: #### M GO, IPB, HFP, CHM7 ####[facility] (DEFAULT)[address] [place] [address] AST [Catalytic activity/Vol] 23 U/L Normal 10-39 [facility] Comment on above: Performed By: #### M GO, IPB, HFP, CHM7 ####[facility] (DEFAULT)[address] [place] [address] Bilirubin [Mass/Vol] 0.8 mg/dL Normal <1.5 [facility] Comment on above: Performed By: #### M GO, IPB, HFP, CHM7 ####[facility] (DEFAULT)[address] [place] [address] Bilirubin.indirect [Mass/Vol] 0.2 mg/dL Normal <0.3 [facility] Comment on above: Performed By: #### M GO, IPB, HFP, CHM7 ####[facility] (DEFAULT)[address] [place] [address] Protein [Mass/Vol] 5.9 g/dL Low 6.4-8.3 [facility] Comment on above: Performed By: #### M GO, IPB, HFP, CHM7 ####[facility] (DEFAULT)[address] [place] [address] MAGNESIUMon 09-08-2023 Interpretation and review of laboratory results Normal [facility] Magnesium [Mass/Vol] 1.8 mg/dL 1.6 - 2 .6 mg/dL [facility] Magnesium [Mass/Vol] 1.8 mg/dL Normal 1.6-2.6 [facility] Comment on above: Performed By: #### M GO, IPB, HFP, CHM7 ####[facility] (DEFAULT)[address] [place] [address] No Panel Informationon 09-08 Interpretation and review of laboratory results Abnormal [facility] PHOSPHATE, INORGANICon 09-08 Interpretation and review of laboratory results Normal [facility] Phosphate [Mass/Vol] 4.1 mg/dL 2.2 - 4 .6 mg/dL [facility] Phosphorous 4.1 mg/dL Normal 2.2-4.6 [facility] Comment on above: Performed By: #### M GO, IPB, HFP, CHM7 ####[facility] (DEFAULT)[address] [place] [address] TACROLIMUS LEVEL, TROUGH (HI E DRUG LEVEL)on 09-08-2023 Interpretation and review of laboratory results Normal [facility] Tacrolimus (Bld) [Mass/Vol] 8.5 ng/mL [facility] Tacrolimus, Trough 8.5 ng/mL Normal [facility] ow Transplant: 4.0-12.0, Therapeutic: 5.0-15.0 [facility] Comment on above: Order Comment: Pleas e draw at specified interval PRIOR to dose. Do not hold dose to wait for level. Specimens batched twice per day, (M-F) and once per day weekendsMethod performed is a chemiluminescent microparticle immunoasssay on the [employer] i2000.The range is based on experience at [facility] and users should be aware that target concentrations vary widely depending on concomitant therapy, time post-transplant, and desired degree of immunosuppression. Performed By: #### T ACRO ####[facility] (DEFAULT)[address] [place] [address] CBC,PLATELETSon 09-07-2023 Erythrocyte distribution width (RBC) [Ratio] 13.5 % 10.9 - 14.3 % [facility] Hematocrit (Bld) [Volume fraction] 37.1 % Low 39.6 - 48.8 % [facility] Hemoglobin (Bld) [Mass/Vol] 11.9 g/dL Low 13.4 - 16.8 g/dL [facility] Interpretation and review of laboratory results Abnormal [facility] MCH (RBC) [Entitic mass] 27.7 pg 26.1 - 33.3 pg [facility] MCHC (RBC) [Mass/Vol] 32.1 g/dL 31.9 - 36.5 g/dL [facility] MCV (RBC) [Entitic vol] 86.5 fL 79.0 - 94.5 fL [facility] Platelet mean volume (Bld) [Entitic vol] 9.6 fL 8.7 - 12.3 fL [facility] Platelets (Bld) [#/Vol] 176 10*3/uL 146 - 337 K/uL [facility] RBC (Bld) [#/Vol] 4.29 10*6/uL Low [facility] WBC (Bld) [#/Vol] 4.10 10*3/uL 3.73 - 10. 10 K/uL [facility] Hematocrit (Bld) [Volume fraction] 37.1 % Low 39.6-48.8 [facility] Comment on above: Performed By: #### [facility] ####[facility] (DEFAULT)[address] [place] [address] Hemoglobin (Bld) [Mass/Vol] 11.9 g/dL Low 13.4-16.8 [facility] Comment on above: Performed By: #### H EMO ####[facility] (DEFAULT)[address] [place] [address] MCV (RBC) [Entitic vol] 86.5 fL Normal 79.0-94.5 [facility] Comment on above: Performed By: #### H EMO ####[facility] (DEFAULT)[address] [place] [address] Mean Cell Hgb 27.7 pg Normal 26.1-33.3 [facility] Comment on above: Performed By: #### H EMO ####[facility] (DEFAULT)[address] [facility] [place] [address] Mean Cell Hgb Conc 32.1 g/dL Normal 31.9-36.5 [facility] Comment on above: Performed By: #### H EMO ####[facility] (DEFAULT)[address] [place] [address] Platelet mean volume (Bld) [Entitic vol] 9.6 fL Normal 8.7-12.3 [facility] Comment on above: Performed By: #### [facility] ####[facility] (DEFAULT)[address] [place] [address] Platelets (Bld) [#/Vol] 176 10*3/uL Normal 146-337 [facility] Comment on above: Performed By: #### [facility] ####[facility] (DEFAULT)[address] [place] [address] RBC (Bld) [#/Vol] 4.29 10*6/uL Low 4.38-5.83 [facility] Comment on above: Performed By: #### [facility] ####[facility] (DEFAULT)[address] [place] [address] RBC Distribution 13.5 % Normal 10.9-14.3 [facility] Comment on above: Performed By: #### [facility] ####[facility] (DEFAULT)[address] [place] [address] WBC (Bld) [#/Vol] 4.10 10*3/uL Normal 3.73-10.10 [facility] Comment on above: Performed By: #### [facility] ####[facility] (DEFAULT)[address] [place] [address] CHEM 7 (LYTES,BUN,CREA,GLUC) on 09-07-2023 Anion gap [Moles/Vol] 13 mmol/L 7 - 17 mmol/L [facility] Chloride [Moles/Vol] 113 mmol/L High 98 - 10 8 mmol/L [facility] CO2 [Moles/Vol] 19 mmol/L Low 21 - 31 mmol/L [facility] Creatinine [Mass/Vol] 1.22 mg/dL 0.70 - 1.30 mg/dL [facility] eGFR, CKD-EPI, Male 71 - PINF [facility] Glucose [Mass/Vol] 107 mg/dL High 70 - 99 mg/dL [facility] Osmolality Calc [Osmolality] 295 [facility] Potassium [Moles/Vol] 3.9 mmol/L 3.5 - 5.0 mmol/L [facility] Sodium [Moles/Vol] 141 mmol/L 135 - 145 mmol/L [facility] Urea nitrogen [Mass/Vol] 13 mg/dL 7 - 25 mg/dL [facility] Urea nitrogen/Creatinine [Mass ratio] 11 mg/mg [facility] Anion gap [Moles/Vol] 13 mmol/L Normal 7-17 [facility] Comment on above: Performed By: #### C HM7, IPB, MGO, HFP ####[facility] (DEFAULT)[address] [facility] [place] [address] Chloride [Moles/Vol] 113 mmol/L High 98-108 [facility] Comment on above: Performed By: #### C HM7, IPB, MGO, HFP ####[facility] (DEFAULT)[address] [place] [address] CO2 [Moles/Vol] 19 mmol/L Low 21-31 [facility] Comment on above: Performed By: #### C HM7, IPB, MGO, HFP ####[facility] (DEFAULT)[address] [place] [address] Creatinine [Mass/Vol] 1.22 mg/dL Normal 0.70-1.30 [facility] Comment on above: Performed By: #### C HM7, IPB, MGO, HFP ####[facility] (DEFAULT)[address] [place] [address] GFR/1.73 sq M.predicted among non-blacks MDRD (S/P/Bld) [Vol rate/Area] 71 mL/min/{1.73_m2} Normal >=60 [facility] Comment on above: Result Comment: Repo rted eGFR is based on the CKD-EPI 2020 equation using creatinine, age, and sex. Performed By: #### C HM7, IPB, MGO, HFP ####[facility] (DEFAULT)[address] [place] [address] Glucose [Mass/Vol] 107 mg/dL High 70-99 [facility] Comment on above: Performed By: #### C HM7, IPB, MGO, HFP ####[facility] (DEFAULT)[address] [place] [address] Osmolality [Osmolality] 295 mosm/kg Normal 278-305 [facility] Comment on above: Performed By: #### C HM7, IPB, MGO, HFP ####[facility] (DEFAULT)[address] [place] [address] Potassium [Moles/Vol] 3.9 mmol/L Normal 3.5-5.0 [facility] Comment on above: Performed By: #### C HM7, IPB, MGO, HFP ####[facility] (DEFAULT)[address] [place] [address] Sodium [Moles/Vol] 141 mmol/L Normal 135-145 [facility] Comment on above: Performed By: #### C HM7, IPB, MGO, HFP ####[facility] (DEFAULT)[address] [place] [address] Urea nitrogen [Mass/Vol] 13 mg/dL Normal 7-25 [facility] Comment on above: Performed By: #### C HM7, IPB, MGO, HFP ####[facility] (DEFAULT)[address] [place] [address] Urea nitrogen/Creatinine [Mass ratio] 11 mg/mg Normal [facility] Comment on above: Performed By: #### C HM7, IPB, MGO, HFP ####[facility] (DEFAULT)[address] [place] [address] HEPATIC FUNCTION PANELon Albumin [Mass/Vol] 2.9 g/dL Low 3.5 - 5.0 g/dL [facility] ALP [Catalytic activity/Vol] 111 U/L 32 - 126 U/L [facility] ALT [Catalytic activity/Vol] 18 U/L 10 - 52 U/L [facility] AST [Catalytic activity/Vol] 23 U/L 10 - 39 U/L [facility] Bilirubin [Mass/Vol] 0.8 mg/dL NINF - 1.5 mg/dL [facility] Bilirubin.direct [Mass/Vol] 0.3 mg/dL High NINF - 0.3 mg/dL [facility] Protein [Mass/Vol] 6.0 g/dL Low 6.4 - 8.3 g/dL [facility] Albumin [Mass/Vol] 2.9 g/dL Low 3.5-5.0 [facility] Comment on above: Performed By: #### C HM7, IPB, MGO, HFP ####[facility] (DEFAULT)[address] [place] [address] ALP [Catalytic activity/Vol] 111 U/L Normal 32-126 [facility] Comment on above: Performed By: #### C HM7, IPB, MGO, HFP ####[facility] (DEFAULT)[address] [place] [address] ALT [Catalytic activity/Vol] 18 U/L Normal 10-52 [facility] Comment on above: Performed By: #### C HM7, IPB, MGO, HFP ####[facility] (DEFAULT)[address] [place] [address] AST [Catalytic activity/Vol] 23 U/L Normal 10-39 [facility] Comment on above: Performed By: #### C HM7, IPB, MGO, HFP ####[facility] (DEFAULT)[address] [place] [address] Bilirubin [Mass/Vol] 0.8 mg/dL Normal <1.5 [facility] Comment on above: Performed By: #### C HM7, IPB, MGO, HFP ####[facility] (DEFAULT)[address] [place] [address] Bilirubin.indirect [Mass/Vol] 0.3 mg/dL High <0.3 [facility] Comment on above: Performed By: #### C HM7, IPB, MGO, HFP ####[facility] (DEFAULT)[address] [place] [address] Protein [Mass/Vol] 6.0 g/dL Low 6.4-8.3 [facility] Comment on above: Performed By: #### C HM7, IPB, MGO, HFP ####[facility] (DEFAULT)[address] [place] [address] MAGNESIUMon 09-07-2023 Interpretation and review of laboratory results Normal [facility] Magnesium [Mass/Vol] 1.7 mg/dL 1.6 - 2 .6 mg/dL [facility] Magnesium [Mass/Vol] 1.7 mg/dL Normal 1.6-2.6 [facility] Comment on above: Performed By: #### C HM7, IPB, MGO, HFP ####[facility] (DEFAULT)[address] [place] [address] No Panel Informationon 09-07 Interpretation and review of laboratory results Abnormal [facility] PHOSPHATE, INORGANICon 09-07 Interpretation and review of laboratory results Normal [facility] Phosphate [Mass/Vol] 4.4 mg/dL 2.2 - 4 .6 mg/dL [facility] Phosphorous 4.4 mg/dL Normal 2.2-4.6 [facility] Comment on above: Performed By: #### C HM7, IPB, MGO, HFP ####[facility] (DEFAULT)[address] [place] [address] TACROLIMUS LEVEL, TROUGH (HI E DRUG LEVEL)Ordered By: Elizabeth Maldonado on 09-07-2023 Interpretation and review of laboratory results Normal [facility] Tacrolimus (Bld) [Mass/Vol] 7.8 ng/mL [facility] TACROLIMUS LEVEL, TROUGH (HI E DRUG LEVEL)on 09-07-2023 Tacrolimus, Trough 7.8 ng/mL Normal Bone Susana ow Transplant: 4.0-12.0, Therapeutic: 5.0-15.0 [facility] Comment on above: Order Comment: Pleas e draw at specified interval PRIOR to dose. Do not hold dose to wait for level. Specimens batched twice per day, (M-F) and once per day weekendsMethod performed is a chemiluminescent microparticle immunoasssay on the [employer] i2000.The range is based on experience at [facility] and users should be aware that target concentrations vary widely depending on concomitant therapy, time post-transplant, and desired degree of immunosuppression. Performed By: #### T ACRO ####[facility] (DEFAULT)[address] [place] [address] CBC,PLATELETSon 09-06-2023 Erythrocyte distribution width (RBC) [Ratio] 13.4 % 10.9 - 14.3 % [facility] Hematocrit (Bld) [Volume fraction] 38.4 % Low 39.6 - 48.8 % [facility] Hemoglobin (Bld) [Mass/Vol] 11.9 g/dL Low 13.4 - 16.8 g/dL [facility] Interpretation and review of laboratory results Abnormal [facility] MCH (RBC) [Entitic mass] 26.6 pg 26.1 - 33.3 pg [facility] MCHC (RBC) [Mass/Vol] 31.0 g/dL Low 31.9 - 36.5 g/dL [facility] MCV (RBC) [Entitic vol] 85.9 fL 79.0 - 94.5 fL [facility] Platelet mean volume (Bld) [Entitic vol] 9.7 fL 8.7 - 12.3 fL [facility] Platelets (Bld) [#/Vol] 181 10*3/uL 146 - 337 K/uL [facility] RBC (Bld) [#/Vol] 4.47 10*6/uL [facility] WBC (Bld) [#/Vol] 4.41 10*3/uL 3.73 - 10. 10 K/uL [facility] Hematocrit (Bld) [Volume fraction] 38.4 % Low 39.6-48.8 [facility] Comment on above: Performed By: #### H EMOGC ####[facility] (DEFAULT)[address] [place] [address] Hemoglobin (Bld) [Mass/Vol] 11.9 g/dL Low 13.4-16.8 [facility] Comment on above: Performed By: #### H EMOGC ####[facility] (DEFAULT)[address] [place] [address] MCV (RBC) [Entitic vol] 85.9 fL Normal 79.0-94.5 [facility] Comment on above: Performed By: #### H EMOGC ####[facility] (DEFAULT)[address] [place] [address] Mean Cell Hgb 26.6 pg Normal 26.1-33.3 [facility] Comment on above: Performed By: #### H EMOGC ####[facility] (DEFAULT)[address] [place] [address] Mean Cell Hgb Conc 31.0 g/dL Low 31.9-36.5 [facility] Comment on above: Performed By: #### H EMOGC ####[facility] (DEFAULT)[address] [place] [address] Platelet mean volume (Bld) [Entitic vol] 9.7 fL Normal 8.7-12.3 [facility] Comment on above: Performed By: #### H EMOGC ####[facility] (DEFAULT)[address] [place] [address] Platelets (Bld) [#/Vol] 181 10*3/uL Normal 146-337 [facility] Comment on above: Performed By: #### H [facility] ####[facility] (DEFAULT)[address] [place] [address] RBC (Bld) [#/Vol] 4.47 10*6/uL Normal 4.38-5.83 [facility] Comment on above: Performed By: #### H [facility] ####[facility] (DEFAULT)[address] [place] [address] RBC Distribution 13.4 % Normal 10.9-14.3 [facility] Comment on above: Performed By: #### H [facility] ####[facility] (DEFAULT)[address] [place] [address] WBC (Bld) [#/Vol] 4.41 10*3/uL Normal 3.73-10.10 [facility] Comment on above: Performed By: #### H [facility] ####[facility] (DEFAULT)[address] [place] [address] CHEM 7 (LYTES,BUN,CREA,GLUC) on 09-06-2023 Anion gap [Moles/Vol] 14 mmol/L 7 - 17 mmol/L [facility] Chloride [Moles/Vol] 109 mmol/L High 98 - 10 8 mmol/L [facility] CO2 [Moles/Vol] 19 mmol/L Low 21 - 31 mmol/L [facility] Creatinine [Mass/Vol] 1.26 mg/dL 0.70 - 1.30 mg/dL [facility] eGFR, CKD-EPI, Male 69 - PINF [facility] Glucose [Mass/Vol] 114 mg/dL High 70 - 99 mg/dL [facility] Osmolality Calc [Osmolality] 291 [facility] Potassium [Moles/Vol] 4.1 mmol/L 3.5 - 5.0 mmol/L [facility] Sodium [Moles/Vol] 138 mmol/L 135 - 145 mmol/L [facility] Urea nitrogen [Mass/Vol] 16 mg/dL 7 - 25 mg/dL [facility] Urea nitrogen/Creatinine [Mass ratio] 13 mg/mg [facility] Anion gap [Moles/Vol] 14 mmol/L Normal 7-17 [facility] Comment on above: Performed By: #### NATHANIEL RAMÍREZ, HFP ####[facility] (DEFAULT)[address] [facility] [address] Chloride [Moles/Vol] 109 mmol/L High 98-108 [facility] Comment on above: Performed By: #### NATHANIEL RAMÍREZ, HFP ####[facility] (DEFAULT)[address] [place] [address] CO2 [Moles/Vol] 19 mmol/L Low 21-31 [facility] Comment on above: Performed By: #### NATHANIEL RAMÍREZ, HFP ####[facility] (DEFAULT)[address] [place] [address] Creatinine [Mass/Vol] 1.26 mg/dL Normal 0.70-1.30 [facility] Comment on above: Performed By: #### NATHANIEL RAMÍREZ, HFP ####[facility] (DEFAULT)[address] [place] [address] GFR/1.73 sq M.predicted among non-blacks MDRD (S/P/Bld) [Vol rate/Area] 69 mL/min/{1.73_m2} Normal >=60 [facility] Comment on above: Result Comment: Repo rted eGFR is based on the CKD-EPI 2020 equation using creatinine, age, and sex. Performed By: #### NATHANIEL RAMÍREZ, HFP ####[facility] (DEFAULT)[address] [facility] [address] Glucose [Mass/Vol] 114 mg/dL High 70-99 [facility] Comment on above: Performed By: #### NATHANIEL RAMÍREZ, HFP ####[facility] (DEFAULT)[address] [place] [address] Osmolality [Osmolality] 291 mosm/kg Normal 278-305 [facility] Comment on above: Performed By: #### NATHANIEL RAMÍREZ, HFP ####[facility] (DEFAULT)[address] [place] [address] Potassium [Moles/Vol] 4.1 mmol/L Normal 3.5-5.0 [facility] Comment on above: Performed By: #### NATHANIEL RAMÍREZ, HFP ####[facility] (DEFAULT)[address] [place] [address] Sodium [Moles/Vol] 138 mmol/L Normal 135-145 [facility] Comment on above: Performed By: #### NATHANIEL RAMÍREZ, HFP ####[facility] (DEFAULT)[address] [place] [address] Urea nitrogen [Mass/Vol] 16 mg/dL Normal 7-25 [facility] Comment on above: Performed By: #### NATHANIEL RAMÍREZ, HFP ####[facility] (DEFAULT)[address] [place] [address] Urea nitrogen/Creatinine [Mass ratio] 13 mg/mg Normal [facility] Comment on above: Performed By: #### NATHANIEL RAMÍREZ, HFP ####[facility] (DEFAULT)[address] [place] [address] HEPATIC FUNCTION PANELon Albumin [Mass/Vol] 3.0 g/dL Low 3.5 - 5.0 g/dL [facility] ALP [Catalytic activity/Vol] 115 U/L 32 - 126 U/L [facility] ALT [Catalytic activity/Vol] 25 U/L 10 - 52 U/L [facility] AST [Catalytic activity/Vol] 31 U/L 10 - 39 U/L [facility] Bilirubin [Mass/Vol] 1.0 mg/dL NINF - 1.5 mg/dL [facility] Bilirubin.direct [Mass/Vol] 0.3 mg/dL High NINF - 0.3 mg/dL [facility] Protein [Mass/Vol] 6.3 g/dL Low 6.4 - 8.3 g/dL [facility] Albumin [Mass/Vol] 3.0 g/dL Low 3.5-5.0 [facility] Comment on above: Performed By: #### M MERLE CHM7, HFP ####[facility] (DEFAULT)[address] [place] [address] ALP [Catalytic activity/Vol] 115 U/L Normal 32-126 [facility] Comment on above: Performed By: #### M MERLE CHM7, HFP ####[facility] (DEFAULT)[address] [place] [address] ALT [Catalytic activity/Vol] 25 U/L Normal 10-52 [facility] Comment on above: Performed By: #### M MERLE CHM7, HFP ####[facility] (DEFAULT)[address] [place] [address] AST [Catalytic activity/Vol] 31 U/L Normal 10-39 [facility] Comment on above: Performed By: #### M MERLE CHM7, HFP ####[facility] (DEFAULT)[address] [place] [address] Bilirubin [Mass/Vol] 1.0 mg/dL Normal <1.5 [facility] Comment on above: Performed By: #### M MERLE CHM7, HFP ####[facility] (DEFAULT)[address] [place] [address] Bilirubin.indirect [Mass/Vol] 0.3 mg/dL High <0.3 [facility] Comment on above: Performed By: #### M MERLE CHM7, HFP ####[facility] (DEFAULT)[address] [place] [address] Protein [Mass/Vol] 6.3 g/dL Low 6.4-8.3 [facility] Comment on above: Performed By: #### M NATHANIEL BLOOM, HFP ####[facility] (DEFAULT)[address] [place] [address] MAGNESIUMon 09-06-2023 Interpretation and review of laboratory results Normal [facility] Magnesium [Mass/Vol] 2.0 mg/dL 1.6 - 2 .6 mg/dL [facility] Magnesium [Mass/Vol] 2.0 mg/dL Normal 1.6-2.6 [facility] Comment on above: Performed By: #### M NATHANIEL BLOOM, HFP ####[facility] (DEFAULT)[address] [place] [address] No Panel Informationon 09-06 Interpretation and review of laboratory results Abnormal [facility] TACROLIMUS LEVEL, TROUGH (HI E DRUG LEVEL)on 09-06-2023 Interpretation and review of laboratory results Normal [facility] Tacrolimus (Bld) [Mass/Vol] 6.7 ng/mL [facility] Tacrolimus, Trough 6.7 ng/mL Normal Bone Susana ow Transplant: 4.0-12.0, Therapeutic: 5.0-15.0 [facility] Comment on above: Order Comment: Pleas e draw at specified interval PRIOR to dose. Do not hold dose to wait for level. Specimens batched twice per day, (M-F) and once per day weekendsMethod performed is a chemiluminescent microparticle immunoasssay on the [employer] i2000.The range is based on experience at [facility] and users should be aware that target concentrations vary widely depending on concomitant therapy, time post-transplant, and desired degree of immunosuppression. Performed By: #### T ACRO ####[facility] (DEFAULT)[address] [place] [address] CBC,PLATELETSon 09-05-2023 Erythrocyte distribution width (RBC) [Ratio] 13.5 % 10.9 - 14.3 % [facility] Hematocrit (Bld) [Volume fraction] 35.6 % Low 39.6 - 48.8 % [facility] Hemoglobin (Bld) [Mass/Vol] 11.4 g/dL Low 13.4 - 16.8 g/dL [facility] Interpretation and review of laboratory results Abnormal [facility] MCH (RBC) [Entitic mass] 27.5 pg 26.1 - 33.3 pg [facility] MCHC (RBC) [Mass/Vol] 32.0 g/dL 31.9 - 36.5 g/dL [facility] MCV (RBC) [Entitic vol] 86.0 fL 79.0 - 94.5 fL [facility] Platelet mean volume (Bld) [Entitic vol] 10.0 fL 8.7 - 12.3 fL [facility] Platelets (Bld) [#/Vol] 170 10*3/uL 146 - 337 K/uL [facility] RBC (Bld) [#/Vol] 4.14 10*6/uL Low [facility] WBC (Bld) [#/Vol] 4.24 10*3/uL 3.73 - 10. 10 K/uL [facility] Hematocrit (Bld) [Volume fraction] 35.6 % Low 39.6-48.8 [facility] Comment on above: Performed By: #### H [facility] ####[facility] (DEFAULT)[address] [place] [address] Hemoglobin (Bld) [Mass/Vol] 11.4 g/dL Low 13.4-16.8 [facility] Comment on above: Performed By: #### H [facility] ####[facility] (DEFAULT)[address] [place] [address] MCV (RBC) [Entitic vol] 86.0 fL Normal 79.0-94.5 [facility] Comment on above: Performed By: #### H [facility] ####[facility] (DEFAULT)[address] [place] [address] Mean Cell Hgb 27.5 pg Normal 26.1-33.3 [facility] Comment on above: Performed By: #### H EMOGC ####[facility] (DEFAULT)[address] [place] [address] Mean Cell Hgb Conc 32.0 g/dL Normal 31.9-36.5 [facility] Comment on above: Performed By: #### H EMOGC ####[facility] (DEFAULT)[address] [facility] [address] Platelet mean volume (Bld) [Entitic vol] 10.0 fL Normal 8.7-12.3 [facility] Comment on above: Performed By: #### H EMOGC ####[facility] (DEFAULT)[address] [facility] [address] Platelets (Bld) [#/Vol] 170 10*3/uL Normal 146-337 [facility] Comment on above: Performed By: #### H EMOGC ####[facility] (DEFAULT)[address] [place] [address] RBC (Bld) [#/Vol] 4.14 10*6/uL Low 4.38-5.83 [facility] Comment on above: Performed By: #### H EMOGC ####[facility] (DEFAULT)[address] [facility] [address] RBC Distribution 13.5 % Normal 10.9-14.3 [facility] Comment on above: Performed By: #### H EMOGC ####[facility] (DEFAULT)[address] [place] [address] WBC (Bld) [#/Vol] 4.24 10*3/uL Normal 3.73-10.10 [facility] Comment on above: Performed By: #### H EMOGC ####[facility] [facility] (DEFAULT)[address] [place] [address] CHEM 7 (LYTES,BUN,CREA,GLUC) on 09-05-2023 Anion gap [Moles/Vol] 12 mmol/L 7 - 17 mmol/L [facility] Chloride [Moles/Vol] 107 mmol/L 98 - 10 8 mmol/L [facility] CO2 [Moles/Vol] 20 mmol/L Low 21 - 31 mmol/L [facility] Creatinine [Mass/Vol] 1.43 mg/dL High 0.70 - 1.30 mg/dL [facility] eGFR, CKD-EPI, Male 59 Low - PINF [facility] Glucose [Mass/Vol] 111 mg/dL High 70 - 99 mg/dL [facility] Osmolality Calc [Osmolality] 286 [facility] Potassium [Moles/Vol] 4.2 mmol/L 3.5 - 5.0 mmol/L [facility] Sodium [Moles/Vol] 135 mmol/L 135 - 145 mmol/L [facility] Urea nitrogen [Mass/Vol] 18 mg/dL 7 - 25 mg/dL [facility] Urea nitrogen/Creatinine [Mass ratio] 13 mg/mg [facility] Anion gap [Moles/Vol] 12 mmol/L Normal 7-17 [facility] Comment on above: Performed By: #### H NATHANIEL MONCADA, MGO ####[facility] (DEFAULT)[address] [place] [address] Chloride [Moles/Vol] 107 mmol/L Normal 98-108 [facility] Comment on above: Performed By: #### H NATHANIEL MONCADA, MGO ####[facility] (DEFAULT)[address] [place] [address] CO2 [Moles/Vol] 20 mmol/L Low 21-31 [facility] Comment on above: Performed By: #### H ANTWAN CHM7, MGO ####[facility] (DEFAULT)[address] [facility] [place] [address] Creatinine [Mass/Vol] 1.43 mg/dL High 0.70-1.30 [facility] Comment on above: Performed By: #### H ANTWAN CHM7, MGO ####[facility] (DEFAULT)[address] [place] [address] GFR/1.73 sq M.predicted among non-blacks MDRD (S/P/Bld) [Vol rate/Area] 59 mL/min/{1.73_m2} Low >=60 [facility] Comment on above: Result Comment: Repo rted eGFR is based on the CKD-EPI 2020 equation using creatinine, age, and sex. Performed By: #### H ANTWAN CHM7, MGO ####[facility] (DEFAULT)[address] [place] [address] Glucose [Mass/Vol] 111 mg/dL High 70-99 [facility] Comment on above: Performed By: #### H ANTWAN CHM7, MGO ####[facility] (DEFAULT)[address] [place] [address], [place] [address] Osmolality [Osmolality] 286 mosm/kg Normal 278-305 [facility] Comment on above: Performed By: #### H ANTWAN CHM7, MGO ####[facility] (DEFAULT)[address] [place] [address] Potassium [Moles/Vol] 4.2 mmol/L Normal 3.5-5.0 [facility] Comment on above: Performed By: #### H FP, CHM7, MGO ####[facility] (DEFAULT)[address] [place] [address] Sodium [Moles/Vol] 135 mmol/L Normal 135-145 [facility] Comment on above: Performed By: #### H FP, CHM7, MGO ####[facility] (DEFAULT)[address] [place] [address] Urea nitrogen [Mass/Vol] 18 mg/dL Normal 7-25 [facility] Comment on above: Performed By: #### H NTAHANIEL MONCADA, MGO ####[facility] (DEFAULT)[address] [place] [address] Urea nitrogen/Creatinine [Mass ratio] 13 mg/mg Normal [facility] Comment on above: Performed By: #### H NATHANIEL MONCADA, MGO ####[facility] (DEFAULT)[address] [place] [address] CONTINUOUS CARDIAC MONITORIN G STRIPon 09-05-2023 [facility] HEPATIC FUNCTION PANELon Albumin [Mass/Vol] 2.8 g/dL Low 3.5 - 5.0 g/dL [facility] ALP [Catalytic activity/Vol] 103 U/L 32 - 126 U/L [facility] ALT [Catalytic activity/Vol] 26 U/L 10 - 52 U/L [facility] AST [Catalytic activity/Vol] 38 U/L 10 - 39 U/L [facility] Bilirubin [Mass/Vol] 0.9 mg/[facility] Bilirubin.direct [Mass/Vol] 0.1 mg/dL NINF - 0.3 mg/dL [facility] Protein [Mass/Vol] 6.1 g/dL Low 6.4 - 8.3 g/dL [facility] Albumin [Mass/Vol] 2.8 g/dL Low 3.5-5.0 [facility] Comment on above: Performed By: #### H NATHANIEL MONCADA, MGO ####[facility] (DEFAULT)[address] [place] [address] ALP [Catalytic activity/Vol] 103 U/L Normal 32-126 [facility] Comment on above: Performed By: #### H NATHANIEL MONCADA, MGO ####[facility] (DEFAULT)[address] [place] [address] ALT [Catalytic activity/Vol] 26 U/L Normal 10-52 [facility] Comment on above: Performed By: #### Lydia MONCADA, CHM7, MGO ####[facility] (DEFAULT)[address] [place] [address] AST [Catalytic activity/Vol] 38 U/L Normal 10-39 [facility] Comment on above: Performed By: #### Lydia FP, CHM7, MGO ####[facility] (DEFAULT)[address] [place] [address] Bilirubin [Mass/Vol] 0.9 mg/dL Normal <1.5 [facility] Comment on above: Performed By: #### Lydia FP, CHM7, MGO ####[facility] (DEFAULT)[address] [place] [address] Bilirubin.indirect [Mass/Vol] 0.1 mg/dL Normal <0.3 [facility] Comment on above: Performed By: #### Lydia MONCADA, CHM7, MGO ####[facility] (DEFAULT)[address] [place] [address] Protein [Mass/Vol] 6.1 g/dL Low 6.4-8.3 [facility] Comment on above: Performed By: #### Lydia FP, CHM7, MGO ####[facility] (DEFAULT)[address] [place] [address] HISTOPLASMA ANTIGEN, FLUIDon 09-05-2023 FH SOURCE BAL RML [facility] Histo FLD interpretation Negative [facility] Histoplasma Antigen, FLUID Not detected ng/mL [facility] HISTOPLASMA CAPSULATUM/BLAST OMYCES SPECIES,PCR FLUIDon 09-05-2023 HISTO/BLASTO RESULT Negative Not Applicable [facility] Specimen source Nom (Unsp spec) BAL RML [facility] IMMUNOPHENOTYPING, TISSUE/FL UIDon 09-05-2023 BKR DX CODE Use Ordering [facility] Flow Interpretation See Comment [facility] Flow Interpreted by: Yossi Perla MD, PhD [facility] MAGNESIUMon 09-05-2023 Interpretation and review of laboratory results Normal [facility] Magnesium [Mass/Vol] 1.7 mg/dL 1.6 - 2 .6 mg/dL [facility] Magnesium [Mass/Vol] 1.7 mg/dL Normal 1.6-2.6 [facility] Comment on above: Performed By: #### H FP, CHM7, MGO ####[facility] (DEFAULT)[address] [place] [id number] No Panel Informationon 09-05 Interpretation and review of laboratory results Abnormal [facility] TACROLIMUS LEVEL, TROUGH (HI E DRUG LEVEL)Ordered By: Raymundo Mehta on 09-05-2023 Interpretation and review of laboratory results Normal [facility] Tacrolimus (Bld) [Mass/Vol] 5.3 ng/mL [facility] TACROLIMUS LEVEL, TROUGH (HI E DRUG LEVEL)on 09-05-2023 Tacrolimus, Trough 5.3 ng/mL Normal [facility] ow Transplant: 4.0-12.0, Therapeutic: 5.0-15.0 [facility] Comment on above: Order Comment: Pleas e draw at specified interval PRIOR to dose. Do not hold dose to wait for level. Specimens batched twice per day, (M-F) and once per day weekendsMethod performed is a chemiluminescent microparticle immunoasssay on the [employer] i2000.The range is based on experience at [facility] and users should be aware that target concentrations vary widely depending on concomitant therapy, time post-transplant, and desired degree of immunosuppression. Performed By: #### T ACRO ####[facility] (DEFAULT)[address] [place] [address] ARTERIAL BLOOD GAS (FULL GOSS EL)on 09-04-2023 Base excess Calc (Bld) [Moles/Vol] -1.2000 mmol/L -3.0 - 3.0 mmol/L [facility] Calcium.ionized (Bld) [Mass/Vol] 4.79 mg/dL 4.60 - 5.30 mg/dL [facility] Carboxyhemoglobin (Bld) [Mass fraction] 0.7 % NINF - 1.5 % [facility] CO2 (Bld) [Partial pressure] 30 mm[Hg] Low [facility] Glucose [Mass/Vol] 159 mg/dL High 70 - 99 mg/dL [facility] HCO3 (Bld) [Moles/Vol] 22 mmol/L 22 - 28 mmol/L [facility] Hematocrit (Bld) [Volume fraction] 38.0 % Low 40.2 - 50.4 % [facility] Hemoglobin (Bld) [Mass/Vol] 12.6 g/dL Low 13.4 - 16.8 g/dL [facility] Interpretation and review of laboratory results Abnormal [facility] Lactate [Moles/Vol] 2.0 mmol/L High 0.5 - 1. 6 mmol/L [facility] Methemoglobin (Bld) [Mass fraction] 0.0 % NINF - 1.5 % [facility] Oxygen (Bld) [Partial pressure] 62 mm[Hg] Low [facility] Oxygen saturation in Blood 92 % Low 94 - 98 % [facility] Oxyhemoglobin 91 % Low 94 - 98 % [facility] pH (Bld) 7.48 [pH] High 7.35 - 7.45 [facility] Potassium [Moles/Vol] 4.2 mmol/L 3.5 - 5.0 mmol/L [facility] Sodium [Moles/Vol] 130 mmol/L Low 135 - 145 mmol/L [facility] Specimen source Nom (Unsp spec) Arterial [facility] Base Excess -1.2 mmol/L Normal -3.0-3.0 [facility] Comment on above: Performed By: #### Vale UNDERWOOD ####[facility] (DEFAULT)[address] [place] [address] Carboxyhemoglobin 0.7 % Normal <=1.5 [facility] Comment on above: Performed By: #### Vale UNDERWOOD ####[facility] (DEFAULT)[address] [place] [address] Glucose [Mass/Vol] 159 mg/dL High 70-99 [facility] Comment on above: Performed By: #### Vale UNDERWOOD ####[facility] (DEFAULT)[address] [place] [address] HCO3 (Bld) [Moles/Vol] 22 mmol/L Normal 22-28 [facility] Comment on above: Performed By: #### Vale UNDERWOOD ####[facility] (DEFAULT)[address] [place] [address] Hematocrit (Bld) [Volume fraction] 38.0 % Low 40.2-50.4 [facility] Comment on above: Performed By: #### Vale UNDERWOOD ####[facility] (DEFAULT)[address] [place] [address] Hemoglobin (Bld) [Mass/Vol] 12.6 g/dL Low 13.4-16.8 [facility] Comment on above: Performed By: #### Vale UNDERWOOD ####[facility] (DEFAULT)[address] [place] [address] Ionized Calcium, Whole Blood 4.79 mg/dL Normal 4.60-5.30 [facility] Comment on above: Performed By: #### Vale UNDERWOOD ####[facility] (DEFAULT)[address] [place] [address] Lactate, Whole Blood 2.0 mmol/L High 0.5-1.6 [facility] Comment on above: Performed By: #### Vale UNDERWOOD ####[facility] (DEFAULT)[address] [place] [address] Methemoglobin 0.0 % Normal <=1.5 [facility] Comment on above: Performed By: #### Vale UNDERWOOD ####[facility] (DEFAULT)[address] [place] [address] Oxyhemoglobin 91 % Low 94-98 [facility] Comment on above: Performed By: #### Vale UNDERWOOD ####[facility] (DEFAULT)[address] [place] [address] pCO2 30 mm Hg Low 32-48 [facility] Comment on above: Performed By: #### Vale UNDERWOOD ####[facility] (DEFAULT)[address] [place] [address] pH (Bld) 7.48 [pH] High 7.35-7.45 [facility] Comment on above: Performed By: #### Vale UNDERWOOD ####[facility] (DEFAULT)[address] [place] [address] pO2 62 mm Hg Low 83-108 [facility] Comment on above: Performed By: #### Vale UNDERWOOD ####[facility] (DEFAULT)[address] [place] [address] Potassium [Moles/Vol] 4.2 mmol/L Normal 3.5-5.0 [facility] Comment on above: Performed By: #### Vale UNDERWOOD ####[facility] (DEFAULT)[address] [place] [address] sO2 92 % Low 94-98 [facility] Comment on above: Performed By: #### Vale UNDERWOOD ####[facility] (DEFAULT)[address] [place] [address] Sodium [Moles/Vol] 130 mmol/L Low 135-145 [facility] Comment on above: Performed By: #### Vale UNDERWOOD ####[facility] (DEFAULT)[address] [facility] [place] [address] Specimen type Nom (Spec) Arterial Normal [facility] Comment on above: Performed By: #### G YASMINE ####[facility] (DEFAULT)[address] [place] [address] Bacteria identified Respirat ory culture Nom (Unsp spec)on 09-04-2023 Bacteria identified Cx Nom (Unsp spec) NO GROWTH DAY [facility] Other stain Nom (Unsp spec) Cytocentrifuge preparation [facility] Microscopic observation Other stain Nom (Unsp spec) Neutrophils, Rare [facility] Microscopic observation Other stain Nom (Unsp spec) Red Blood Cells Present [facility] Microscopic observation Other stain Nom (Unsp spec) No organisms seen [facility] Bacteria identified Respirat ory culture Nom (Unsp spec)Ordered By: Jose Salgado on 09-04-2023 Bacteria identified Cx Nom (Unsp spec) NO GROWTH DAY [facility]opic [facility] Other stain Nom (Unsp spec) Cytocentrifuge preparation [facility] Microscopic observation Other stain Nom (Unsp spec) Neutrophils, Moderate [facility] Microscopic observation Other stain Nom (Unsp spec) Red Blood Cells Present [facility] Microscopic observation Other stain Nom (Unsp spec) No organisms seen [facility] CBC,PLATELETSon 09-04-2023 Erythrocyte distribution width (RBC) [Ratio] 13.2 % 10.9 - 14.3 % [facility] Hematocrit (Bld) [Volume fraction] 38.7 % Low 39.6 - 48.8 % [facility] Hemoglobin (Bld) [Mass/Vol] 12.3 g/dL Low 13.4 - 16.8 g/dL [facility] Interpretation and review of laboratory results Abnormal [facility] MCH (RBC) [Entitic mass] 27.9 pg 26.1 - 33.3 pg [facility] MCHC (RBC) [Mass/Vol] 31.8 g/dL Low 31.9 - 36.5 g/dL [facility] MCV (RBC) [Entitic vol] 87.8 fL 79.0 - 94.5 fL [facility] Platelet mean volume (Bld) [Entitic vol] 9.8 fL 8.7 - 12.3 fL [facility] Platelets (Bld) [#/Vol] 173 10*3/uL 146 - 337 K/uL [facility] RBC (Bld) [#/Vol] 4.41 10*6/uL [facility] WBC (Bld) [#/Vol] 4.57 10*3/uL 3.73 - 10. 10 K/uL [facility] Hematocrit (Bld) [Volume fraction] 38.7 % Low 39.6-48.8 [facility] Comment on above: Performed By: #### H [facility] ####[facility] (DEFAULT)[address] [place] [address] Hemoglobin (Bld) [Mass/Vol] 12.3 g/dL Low 13.4-16.8 [facility] Comment on above: Performed By: #### H [facility] ####[facility] (DEFAULT)[address] [place] [address] MCV (RBC) [Entitic vol] 87.8 fL Normal 79.0-94.5 [facility] Comment on above: Performed By: #### H EMO ####[facility] (DEFAULT)[address] [place] [address] Mean Cell Hgb 27.9 pg Normal 26.1-33.3 [facility] Comment on above: Performed By: #### H EMO ####[facility] (DEFAULT)[address] [place] [address] Mean Cell Hgb Conc 31.8 g/dL Low 31.9-36.5 [facility] Comment on above: Performed By: #### H EMO ####[facility] (DEFAULT)[address] [place] [address] Platelet mean volume (Bld) [Entitic vol] 9.8 fL Normal 8.7-12.3 [facility] Comment on above: Performed By: #### H EMO ####[facility] (DEFAULT)[address] [place] [address] Platelets (Bld) [#/Vol] 173 10*3/uL Normal 146-337 [facility] Comment on above: Performed By: #### H EMO ####[facility] (DEFAULT)[address] [place] [address] RBC (Bld) [#/Vol] 4.41 10*6/uL Normal 4.38-5.83 [facility] Comment on above: Performed By: #### H EMO ####[facility] (DEFAULT)[address] [place] [address] RBC Distribution 13.2 % Normal 10.9-14.3 [facility] Comment on above: Performed By: #### H EMO ####[facility] (DEFAULT)[address] [place] [address] WBC (Bld) [#/Vol] 4.57 10*3/uL Normal 3.73-10.10 [facility] Comment on above: Performed By: #### H EMO ####[facility] (DEFAULT)[address] [place] [address] CHEM 7 (LYTES,BUN,CREA,GLUC) on 09-04-2023 Anion gap [Moles/Vol] 16 mmol/L 7 - 17 mmol/L [facility] Chloride [Moles/Vol] 104 mmol/L 98 - 10 8 mmol/L [facility] CO2 [Moles/Vol] 18 mmol/L Low 21 - 31 mmol/L [facility] Creatinine [Mass/Vol] 1.22 mg/dL 0.70 - 1.30 mg/dL [facility] eGFR, CKD-EPI, Male 71 - PINF [facility] Glucose [Mass/Vol] 124 mg/dL High 70 - 99 mg/dL [facility] Osmolality Calc [Osmolality] 284 [facility] Potassium [Moles/Vol] 3.9 mmol/L 3.5 - 5.0 mmol/L [facility] Sodium [Moles/Vol] 134 mmol/L Low 135 - 145 mmol/L [facility] Urea nitrogen [Mass/Vol] 15 mg/dL 7 - 25 mg/dL [facility] Urea nitrogen/Creatinine [Mass ratio] 12 mg/mg [facility] Anion gap [Moles/Vol] 16 mmol/L Normal 7-17 [facility] Comment on above: Performed By: #### NATHANIEL RAMÍREZ, HFP ####[facility] (DEFAULT)[address] [place] [address] Chloride [Moles/Vol] 104 mmol/L Normal 98-108 [facility] Comment on above: Performed By: #### NATHANIEL RAMÍREZ, HFP ####[facility] (DEFAULT)[address] [place] [address] CO2 [Moles/Vol] 18 mmol/L Low 21-31 [facility] Comment on above: Performed By: #### NATHANIEL RAMÍREZ, HFP ####[facility] (DEFAULT)[address] [place] [address] Creatinine [Mass/Vol] 1.22 mg/dL Normal 0.70-1.30 [facility] Comment on above: Performed By: #### NATHANIEL RAMÍREZ, HFP ####[facility] (DEFAULT)[address] [place] [address] GFR/1.73 sq M.predicted among non-blacks MDRD (S/P/Bld) [Vol rate/Area] 71 mL/min/{1.73_m2} Normal >=60 [facility] Comment on above: Result Comment: Repo rted eGFR is based on the CKD-EPI 2020 equation using creatinine, age, and sex. Performed By: #### NATHANIEL RAMÍREZ, HFP ####[facility] (DEFAULT)[address] [place] [address] Glucose [Mass/Vol] 124 mg/dL High 70-99 [facility] Comment on above: Performed By: #### NATHANIEL RAMÍREZ, HFP ####[facility] (DEFAULT)[address] [place] [address] Osmolality [Osmolality] 284 mosm/kg Normal 278-305 [facility] Comment on above: Performed By: #### NATHANIEL RAMÍREZ, HFP ####[facility] (DEFAULT)[address] [place] [address] Potassium [Moles/Vol] 3.9 mmol/L Normal 3.5-5.0 [facility] Comment on above: Performed By: #### NATHANIEL RAMÍREZ, HFP ####[facility] (DEFAULT)[address] [place] [address] Sodium [Moles/Vol] 134 mmol/L Low 135-145 [facility] Comment on above: Performed By: #### NATHANIEL RAMÍREZ, HFP ####[facility] (DEFAULT)[address] [place] [address] Urea nitrogen [Mass/Vol] 15 mg/dL Normal 7-25 [facility] Comment on above: Performed By: #### NATHANIEL RAMÍREZ, HFP ####[facility] (DEFAULT)[address] [place] [address] Urea nitrogen/Creatinine [Mass ratio] 12 mg/mg Normal [facility] Comment on above: Performed By: #### NATHANIEL RAMÍREZ, HFP ####[facility] (DEFAULT)[address] [place] [address] CMV PCR,FLUIDS,URINE,EYE ETC on 09-04-2023 Specimen source Nom (Unsp spec) BAL LLL [facility] Specimen source Nom (Unsp spec) BAL RML [facility] HEPATIC FUNCTION PANELon Albumin [Mass/Vol] 3.0 g/dL Low 3.5 - 5.0 g/dL [facility] ALP [Catalytic activity/Vol] 112 U/L 32 - 126 U/L [facility] ALT [Catalytic activity/Vol] 22 U/L 10 - 52 U/L [facility] AST [Catalytic activity/Vol] 30 U/L 10 - 39 U/L [facility] Bilirubin [Mass/Vol] 1.2 mg/dL NINF - 1.5 mg/dL [facility] Bilirubin.direct [Mass/Vol] 0.4 mg/dL High NINF - 0.3 mg/dL [facility] Protein [Mass/Vol] 6.4 g/dL 6.4 - 8.3 g/dL [facility] Albumin [Mass/Vol] 3.0 g/dL Low 3.5-5.0 [facility] Comment on above: Performed By: #### NATHANIEL RAMÍREZ, HFP ####[facility] (DEFAULT)[address] [place] [address] ALP [Catalytic activity/Vol] 112 U/L Normal 32-126 [facility] Comment on above: Performed By: #### NATHANIEL RAMÍREZ, HFP ####[facility] (DEFAULT)[address] [place] [address] ALT [Catalytic activity/Vol] 22 U/L Normal 10-52 [facility] Comment on above: Performed By: #### NATHANIEL RAMÍREZ, HFP ####[facility] (DEFAULT)[address] [place] [address] AST [Catalytic activity/Vol] 30 U/L Normal 10-39 [facility] Comment on above: Performed By: #### NATHANIEL RAMÍREZ, HFP ####[facility] (DEFAULT)[address] [facility] [address] Bilirubin [Mass/Vol] 1.2 mg/dL Normal <1.5 [facility] Comment on above: Performed By: #### NATHANIEL RAMÍREZ, HFP ####[facility] (DEFAULT)[address] [place] [address] Bilirubin.indirect [Mass/Vol] 0.4 mg/dL High <0.3 [facility] Comment on above: Performed By: #### NATHANIEL RAMÍREZ, HFP ####[facility] (DEFAULT)[address] [facility] [place] [address] Protein [Mass/Vol] 6.4 g/dL Normal 6.4-8.3 [facility] Comment on above: Performed By: #### NATHANIEL RAMÍREZ, HFP ####[facility] (DEFAULT)[address] [facility] [place] [address] LEGIONELLA PCRon 09-04-2023 Legionella sp rRNA Probe Ql (Unsp spec) Negative Not Applicable [facility] Specimen source Nom (Unsp spec) BAL RML [facility] - Microbiology an d Antimicrobial susceptibilityon 09-04-2023 CMV DNA ESTELITA+probe Ql (Unsp spec) Negative Negative [facility] MAGNESIUMon 09-04-2023 Magnesium [Mass/Vol] 1.4 mg/dL Low 1.6 - 2 .6 mg/dL [facility] Magnesium [Mass/Vol] 1.4 mg/dL Low 1.6-2.6 [facility] Comment on above: Performed By: #### NATHANIEL RAMÍREZ, HFP ####[facility] (DEFAULT)[address] [place] [address] No Panel Informationon 09-04 Annotation comment [Interpretation] Narrative DNR [facility] PN Report Status DNR [facility] Pneumocystis jiroveci,PCR result Negative Not Applicable [facility] Interpretation and review of laboratory results Abnormal [facility] PNEUMOCYSTIS JIROVECI,PCRon 09-04-2023 Specimen source Nom (Unsp spec) BAL LLL [facility] Specimen source Nom (Unsp spec) BAL RML [facility] Portable XR Chest Viewson RADIOLOGY RADIOLOGY [facility] Radiology Study observation (narrative) [facility] Portable XR Chest ViewsOrder ed By: Joanie Nugent on 09-04-2023 [facility] Work Phone: TACROLIMUS LEVEL, TROUGH (HI E DRUG LEVEL)on 09-04-2023 Interpretation and review of laboratory results Abnormal [facility] Tacrolimus (Bld) [Mass/Vol] 3.6 ng/mL Low [facility] Tacrolimus, Trough 3.6 ng/mL Low Bone Susana ow Transplant: 4.0-12.0, Therapeutic: 5.0-15.0 [facility] Comment on above: Order Comment: Pleas e draw at specified interval PRIOR to dose. Do not hold dose to wait for level. Specimens batched twice per day, (M-F) and once per day weekendsMethod performed is a chemiluminescent microparticle immunoasssay on the [employer] i2000.The range is based on experience at [facility] and users should be aware that target concentrations vary widely depending on concomitant therapy, time post-transplant, and desired degree of immunosuppression. Performed By: #### T ACRO ####[facility] (DEFAULT)[address] [place], [place] [address] XR CHEST PORTABLEon 09-04-20 XR CHEST PORTABLE Normal [facility] ASPERGILLUS ANTIGEN, BALon 1 Galactomannan Ag IA Qn (Unsp spec) <0.500 NINF [facility] Galactomannan Ag IA Qn (Unsp spec) <0.500 [facility] BAL CONSULTOrdered By: Noa Peralta on 09-03-2023 ALVEOLAR MACROPHAGES 32 % [facility] Work Phone: Bal comments Correlation with microbiology stains and cultures is recommended. [facility] Work Phone: Bal Diff Quik Stain Quality Check Acceptable [facility] Work Phone: BKR BAL INTERPRETATION Cellular specimen comprised of alveolar macrophages and small lymphocytes. No definitive microorganisms are observed. Moderate degenerative changes. [facility] Work Phone: BKR DX CODE Use Ordering [facility] Work Phone: Eosinophils Patterson stain Ql (Unsp spec) 0 % [facility] Work Phone: Lymphocytes/100 WBC (Bld) 57 % [facility] Work Phone: Neutrophils/100 WBC Manual cnt (Bronch spec) 11 % [facility] Work Phone: Pathologist review Jame (Unsp spec) [Interp] Leonardo Peralta MD [facility] Work Phone: [facility] Work Phone: BAL CONSULTon 09-03-2023 ALVEOLAR MACROPHAGES 33 % [facility] Bal comments Correlation with microbiology stains and cultures is recommended. Correlation with viral studies is recommended. [facility] Bal Diff Quik Stain Quality Check Acceptable [facility] BKR BAL INTERPRETATION Cellular specimen comprised of alveolar macrophages and small lymphocytes. No definitive microorganisms are observed. Rare degenerating cells with changes suggestive of viral cytopathic effect are noted. Moderate degenerative changes. [facility] BKR DX CODE Use Ordering [facility] Eosinophils Patterson stain Ql (Unsp spec) 0 % [facility] Lymphocytes/100 WBC (Bld) 49 % [facility] Neutrophils/100 WBC Manual cnt (Bronch spec) 18 % [facility] Pathologist review Jame (Unsp spec) [Interp] Leonardo Peralta MD [facility] BRONCHOSCOPYon 09-03-2023 LAB, [facility] CBC,PLATELETSon 09-03-2023 Erythrocyte distribution width (RBC) [Ratio] 13.4 % 10.9 - 14.3 % [facility] Hematocrit (Bld) [Volume fraction] 39.6 % 39.6 - 48.8 % [facility] Hemoglobin (Bld) [Mass/Vol] 12.8 g/dL Low 13.4 - 16.8 g/dL [facility] Interpretation and review of laboratory results Abnormal [facility] MCH (RBC) [Entitic mass] 27.8 pg 26.1 - 33.3 pg [facility] MCHC (RBC) [Mass/Vol] 32.3 g/dL 31.9 - 36.5 g/dL [facility] MCV (RBC) [Entitic vol] 85.9 fL 79.0 - 94.5 fL [facility] Platelet mean volume (Bld) [Entitic vol] 9.4 fL 8.7 - 12.3 fL [facility] Platelets (Bld) [#/Vol] 222 10*3/uL 146 - 337 K/uL [facility] RBC (Bld) [#/Vol] 4.61 10*6/uL [facility] WBC (Bld) [#/Vol] 4.36 10*3/uL 3.73 - 10. 10 K/uL [facility] Hematocrit (Bld) [Volume fraction] 39.6 % Normal 39.6-48.8 [facility] Comment on above: Performed By: #### H [facility] ####[facility] (DEFAULT)[address] [place] [address] Hemoglobin (Bld) [Mass/Vol] 12.8 g/dL Low 13.4-16.8 [facility] Comment on above: Performed By: #### H [facility] ####[facility] (DEFAULT)[address] [facility] [address] MCV (RBC) [Entitic vol] 85.9 fL Normal 79.0-94.5 [facility] Comment on above: Performed By: #### H EMOGC ####[facility] (DEFAULT)[address] [facility] [address] Mean Cell Hgb 27.8 pg Normal 26.1-33.3 [facility] Comment on above: Performed By: #### H EMOGC ####[facility] (DEFAULT)[address] [place] [address] Mean Cell Hgb Conc 32.3 g/dL Normal 31.9-36.5 [facility] Comment on above: Performed By: #### H EMOGC ####[facility] (DEFAULT)[address] [place] [address] Platelet mean volume (Bld) [Entitic vol] 9.4 fL Normal 8.7-12.3 [facility] Comment on above: Performed By: #### H EMOGC ####[facility] (DEFAULT)[address] [place] [address] Platelets (Bld) [#/Vol] 222 10*3/uL Normal 146-337 [facility] Comment on above: Performed By: #### H EMOGC ####[facility] (DEFAULT)[address] [facility] [address] RBC (Bld) [#/Vol] 4.61 10*6/uL Normal 4.38-5.83 [facility] Comment on above: Performed By: #### H EMOGC ####[facility] (DEFAULT)[address] [place] [address] RBC Distribution 13.4 % Normal 10.9-14.3 [facility] Comment on above: Performed By: #### H EMOGC ####[facility] (DEFAULT)[address] [place] [address] WBC (Bld) [#/Vol] 4.36 10*3/uL Normal 3.73-10.10 [facility] Comment on above: Performed By: #### H [facility] ####[facility] (DEFAULT)[address] [place] [address] CHEM 7 (LYTES,BUN,CREA,GLUC) on 09-03-2023 Anion gap [Moles/Vol] 12 mmol/L 7 - 17 mmol/L [facility] Chloride [Moles/Vol] 104 mmol/L 98 - 10 8 mmol/L [facility] CO2 [Moles/Vol] 24 mmol/L 21 - 31 mmol/L [facility] Creatinine [Mass/Vol] 1.20 mg/dL 0.70 - 1.30 mg/dL [facility] eGFR, CKD-EPI, Male 73 - PINF [facility] Glucose [Mass/Vol] 112 mg/dL High 70 - 99 mg/dL [facility] Osmolality Calc [Osmolality] 288 [facility] Potassium [Moles/Vol] 4.1 mmol/L 3.5 - 5.0 mmol/L [facility] Sodium [Moles/Vol] 136 mmol/L 135 - 145 mmol/L [facility] Urea nitrogen [Mass/Vol] 17 mg/dL 7 - 25 mg/dL [facility] Urea nitrogen/Creatinine [Mass ratio] 14 mg/mg [facility] Anion gap [Moles/Vol] 12 mmol/L Normal 7-17 [facility] Comment on above: Performed By: #### M NATHANIEL BLOOM, HFP ####[facility] (DEFAULT)[address] [place] [address] Chloride [Moles/Vol] 104 mmol/L Normal 98-108 [facility] Comment on above: Performed By: #### M HELEN BLOOMMJessica, HFP ####[facility] (DEFAULT)[address] [place] [address] CO2 [Moles/Vol] 24 mmol/L Normal 21-31 [facility] Comment on above: Performed By: #### NATHANIEL RAMÍREZ, HFP ####[facility] (DEFAULT)[address] [place] [address] Creatinine [Mass/Vol] 1.20 mg/dL Normal 0.70-1.30 [facility] Comment on above: Performed By: #### NATHANIEL RAMÍREZ, HFP ####[facility] (DEFAULT)[address] [place] [address] GFR/1.73 sq M.predicted among non-blacks MDRD (S/P/Bld) [Vol rate/Area] 73 mL/min/{1.73_m2} Normal >=60 [facility] Comment on above: Result Comment: Repo rted eGFR is based on the CKD-EPI 2020 equation using creatinine, age, and sex. Performed By: #### NATHANIEL RAMÍREZ, HFP ####[facility] (DEFAULT)[address] [place] [address] Glucose [Mass/Vol] 112 mg/dL High 70-99 [facility] Comment on above: Performed By: #### NATHANIEL RAMÍREZ, HFP ####[facility] (DEFAULT)[address] [place] [address] Osmolality [Osmolality] 288 mosm/kg Normal 278-305 [facility] Comment on above: Performed By: #### NATHANIEL RAMÍREZ, HFP ####[facility] (DEFAULT)[address] [place] [address] Potassium [Moles/Vol] 4.1 mmol/L Normal 3.5-5.0 [facility] Comment on above: Performed By: #### NATHANIEL RAMÍRZE, HFP ####[facility] (DEFAULT)[address] [place] [address] Sodium [Moles/Vol] 136 mmol/L Normal 135-145 [facility] Comment on above: Performed By: #### M MERLE CHM7, HFP ####[facility] (DEFAULT)[address] [place] [address] Urea nitrogen [Mass/Vol] 17 mg/dL Normal 7-25 [facility] Comment on above: Performed By: #### M MERLE CHM7, HFP ####[facility] (DEFAULT)[address] [place] [address] Urea nitrogen/Creatinine [Mass ratio] 14 mg/mg Normal [facility] Comment on above: Performed By: #### M MERLE CHM7, HFP ####[facility] (DEFAULT)[address] [place] [address] CYTOLOGY, NON-GYNOrdered By: Sherice Jimenez on 09-03-2023 CYTOLOGIC DIAGNOSIS u4zcxFKcJWYvwAMmCXGdB9niyuZ sUPDxkFTaR8WzxgkcJKltQN4jTV 0qmCvjmKCdiAEwLDWqOqLwf4fgd 755bMYtt5xbDMVXbahpzLi8t4ev UFLAiF3ha9w9mZ38VIDasR3gcVN vERsfbvThGFqegbBdwlOfTiq1BI R1oQokKddatHW1bABitCI7CExya 5SdlArfoZtsVVP9CZJzVexvUTow qQM0hTFixJayhKKuAX8bj0lwrBQ 5dfKiCCB2eTvruYV9fCrbkndxn4 xivIX7hKK4DMvmcFH9KXdnSmLjO 3yhNMUgcJ6uH47cH1apVKXbyKql UGpiIDRdmWY6KAJ9FZEha0tjYFO lhSCagHJeFtSbEZirXwm1j4dbON WcpZ22fKKqzrS3jMjiIDhtwWX6Y X43YXsts8AiWJYrcKfoJLXhrA9d YzIzXGxldmVsbmZjbjIzXGxldmV wugTbWIwgtxAvq8NfkjRfjJX8WB rpacZrgMZ1wAxjYWQkF7Y0Q133J UgfhrCxdaNoKxEfllq4POGrkAuw bGlzdGxldmVsXGxldmVsbmZjMjN nvWP5BVkeHhSiMxQbrQM9CMiaAv YiwYJ3CEmmaKOeaMA3RAmxwRO3P Da9FQe3STqqRJvcEmo6iEpmiBX8 AAydaQ6uMBAoE76hOfM1e9cdvJZ 5oYR6LFzdoJA3BQvuTlLlW6jdKA RxxN4pF68kP1epUBXvhMnjRUwpB QWpuET3HUB9IWQfo4joSOJrvRJg qCAsQjKrZTitKxp0n5vcGQPmuK2 9kLHesuY1rNjvDW51UDkgx5JiVC AhlKrtTMZfeX9hXkMtDIkrepEgo mZjbjIzXGxldmVsamMwXGxldmVs b9DlagXhcIE5LLykcpCwrVW4xSu bWBGoJ7Y1F433VOsjraGinkFrRl Cstgl1BJQweQmlmKuotXhugeKeK AqbsxTvnnWuEaLluUK5PHpwKoPq EsTumST7PYmaUvRjvMG9OIvzwSQ rjKJ7LIfstMO7YXy3ILx0OVheND jbVda1iKjcbYN2NUkovM7nFUWmZ 91iCpW9f3gdxLN3nWW2IYfpeBZ7 HHqcBuMnP0hiZOWliZ6pX40jH3e uTCBayYmqAAyhUPUnkOB7YUB5QD Pww0rfOUCmrJYfsLIhZlYsMXnfJ ji2s1ghHXZjjG28yYTbgyU0kXlb LD21EVmkw9YjXVWmeZgvROVjaP9 mYzIzXGxldmVsbmZjbjIzXGxldm CuuzIlRDtzrjZrl7LnuiIzyAW8S EjmkmYezUJ5nRdtJYKvK2C9D943 JNblooYgbaJuKzPbpft3QDCcrKd cbGlzdGxldmVsXGxldmVsbmZjMj CdrKK4STwlKoEvGwCljUH5WHecS qAgqKB6PBkudXJhbPM6HDgijOY9 IBj0FYc5PKvyBQdhAus9nOaoyHY 7VNtcjF2xHKIcC33qTwR6nJ39UG sesIqxbQ53AWBumAGozBNgmRL1W WierLbssW29PWXybEBcVOtmj4Lp QTIiNbX8ALU2KDAhnCwoiC69UQT mhGTeP649kcNrSZppFZ96YNNxzR WkaqWtNfYwPJUeyMOjjJV7ERMnN P7gkqxfJLduYPmqVKSvzuC3VGKb wCXtC9GpKCRjUV4dcktaLDO7LPe xWLYgANU7KgRoOBZzh2Ekpma5Hp UetQw6t8hpVERwWQKnzYebq9lhC JW2XDStyDNpO7vckR8nIITrUP9j armib0ogOMmuTLyoYGYhqAE6snR 3XCDvoMIyT5UvdM2jFOYgLPKzif DkoGoekE7bIvxfjnThKJKxNSLJN mQNWb4YY7hWVTwRJL5RILRlGKQJ TMjELDXILRJAYImKZ3LPELzIPnU bOYZsONDjQ0yTY6tGD6vmFueqGz JhNOqyHMDrFiQvN7LxWCKcklxtC MCxXVJHKN2TYAFNFKVECs9UUOZ8 OOWkpqybpUS6SOnakhKraZx3xYD ihJsztH8lAarquqMcKYRkWBCXfp GMLFaiM30mhxVcL7OraBXoFZQgJ NchSB83cYGmCJWyoSMjHWo8dA8r WBbpkXtfqiRNyGRtgL7wvsxoRNu jZjBccGFyXGxpMFxsczBccGFyfQ == [facility] Work Phone: Case Report [facility] Work Phone: Clinical History g8fxwGGrSNJnaIXoDOPo Z7mofeR nAMAxiKNvT1KvleqyAMafZV8jUB 5fzLfwyCUpqXUwIXSoLmZhv9onv 540iGGeu4dpHDTKpohupZk6yHne W89ta1C1FnagV7knNIMlKDcwWWU nHLdhbAQmFIv6IYEnwVGfmhSyKb LmLFKihCSsdYF3ICDmQE2ojungQ HzaZQcxYLIdczJ4LJLqcCEbW2Te ZNClXQ9qayoqIGY5LAsxTSPcEMG 4ObVvYSIna9Jyaha6NkIzlTe9s9 yeVZScCFUudNqoo1ktPUX2RTElc QPeB0gejQ9iQELnHQ8wdavxz3kg MYtdEScwRRMmdXF4vqA0MOWzwIO dZ9UntJ8dTHNjGNOgtoCldQyteS 5cZnMyMFxjZjEgUmVuYWwgdHJhb rMcwMGvhM6wIJFcoe3= [facility] Work Phone: For Immediate Release to Patient's MyChart? Yes Yes [facility] Work Phone: Gross Description j0fxeRGlHGNwgOJtRLUv J9vhhgY wURAdqRRnV4MurmtkRWpcVM6hPL 4mkTskoSHljIFoFEWhJrEgp9spr 277iOBoa6geGOKCvvlezQd5xNtp Y27wp7O1ZnqeM56jpPJsEEV2PXI cPMUgnXLpRQOgIQT6DKRpvKOgH6 mtQESgTE2qcashEJexMLujYQQta TU2AOCgkSMkP8EkCYFjODeuXPFa uqc0EbDlEp0ifOUtoTwqBBlgSWT kXHBsYWluXGZzMjAgTExMIEJBTF hlBSArKZYxiYCsABe3AESbaZ9pu CEzfvHebZOvfB4fqGrqJYfyIELz LZHRTJKizPnlNWQJMUQfo5QykO5 ccGFyXHBhcmRccGFyXHBhcn0= [facility] Work Phone: [facility] Work Phone: HEPATIC FUNCTION PANELon Albumin [Mass/Vol] 3.2 g/dL Low 3.5 - 5.0 g/dL [facility] ALP [Catalytic activity/Vol] 118 U/L 32 - 126 U/L [facility] ALT [Catalytic activity/Vol] 25 U/L 10 - 52 U/L [facility] AST [Catalytic activity/Vol] 32 U/L 10 - 39 U/L [facility] Bilirubin [Mass/Vol] 1.0 mg/dL NINF - 1.5 mg/dL [facility] Bilirubin.direct [Mass/Vol] 0.3 mg/dL High NINF - 0.3 mg/dL [facility] Protein [Mass/Vol] 6.5 g/dL 6.4 - 8.3 g/dL [facility] Albumin [Mass/Vol] 3.2 g/dL Low 3.5-5.0 [facility] Comment on above: Performed By: #### M GO, CHM7, HFP ####[facility] (DEFAULT)[address] [place] [address] ALP [Catalytic activity/Vol] 118 U/L Normal 32-126 [facility] Comment on above: Performed By: #### M MERLE CHM7, HFP ####[facility] (DEFAULT)[address] [place] [address] ALT [Catalytic activity/Vol] 25 U/L Normal 10-52 [facility] Comment on above: Performed By: #### M MERLE CHM7, HFP ####[facility] (DEFAULT)[address] [place] [address] AST [Catalytic activity/Vol] 32 U/L Normal 10-39 [facility] Comment on above: Performed By: #### Rod BLOOM CHM7, HFP ####[facility] (DEFAULT)[address] [place] [address] Bilirubin [Mass/Vol] 1.0 mg/dL Normal <1.5 [facility] Comment on above: Performed By: #### Rod BLOOM CHM7, HFP ####[facility] (DEFAULT)[address] [place] [address] Bilirubin.indirect [Mass/Vol] 0.3 mg/dL High <0.3 [facility] Comment on above: Performed By: #### M HELEN BLOOMM7, HFP ####[facility] (DEFAULT)[address] [place] [address] Protein [Mass/Vol] 6.5 g/dL Normal 6.4-8.3 [facility] Comment on above: Performed By: #### M MERLE CHM7, HFP ####[facility] (DEFAULT)[address] [place] [address] HISTOPLASMA AND BLASTOMYCES ANTIGEN, ENZYME IMMUNOASSAY, SERMon 09-03-2023 Histoplasma/Blastomy antonia Ag Result Detected Critically abnormal Not Detected [facility] Histoplasma/Blastomy antonia Ag Value 5.3 ng/mL [facility] Interpretation and review of laboratory results Abnormal [facility] IMMUNOPHENOTYPING, TISSUE/FL UIDon 09-03-2023 BKR DX CODE Use Ordering Normal [facility] Comment on above: Order Comment: Pleas e lab add on to specimen collected yesterdayIMMUNOPHENOTYPING DIAGNOSISPATIENT NAME: GEORGE SLATER: 1970MRN: [id number]#: [id number] BY: Yossi Perla M.D,, Ph.D. [id number] TYPE: Bronchial Alveolar LavageLABORATORY INTERPRETATION:There is no [...] performance characteristicsdetermined The Flow Cytometry Laboratory at [facility]. It has notbeen cleared or approved by the FDA. This laboratory is certifiedunder the Clinical Laboratory Improvement Amendments (CLIA)as qualified to perform high complexity clinical laboratorytesting. This test is used for clinical purposes. It should notbe regarded as investigational or for research.[facility] Flow Cytometry Laboratory lower limitof CLL MRD detection is 0.1% of the gated lymphocytes. Performed By: #### G IPP ####[facility] (DEFAULT)[address] [place] [address] Flow Interpretation See Comment Normal [facility] Comment on above: Order Comment: Pleas e lab add on to specimen collected yesterdayIMMUNOPHENOTYPING DIAGNOSISPATIENT NAME: GEORGE SLATER: 1970MRN: [id number]#: [id number] BY: Yossi Perla M.D,, Ph.D. [id number] TYPE: Bronchial Alveolar LavageLABORATORY INTERPRETATION:There is no [...] performance characteristicsdetermined The [facility]. It has notbeen cleared or approved by the FDA. This laboratory is certifiedunder the Clinical Laboratory Improvement Amendments (CLIA)as qualified to perform high complexity clinical laboratorytesting. This test is used for clinical purposes. It should notbe regarded as investigational or for research.[facility] Flow Cytometry Laboratory lower limitof CLL MRD detection is 0.1% of the gated lymphocytes. Performed By: #### G IPP ####[facility] ([facility])[address] [place] [address] Flow Interpreted by: Yossi Perla MD, PhD [facility] Comment on above: Order Comment: Pleas e lab add on to specimen collected yesterdayIMMUNOPHENOTYPING DIAGNOSISPATIENT NAME: GEORGE SLATER: 1970MRN: [id number]#: [id number] BY: Yossi Perla M.D,, Ph.D. [id number] TYPE: Bronchial Alveolar LavageLABORATORY INTERPRETATION:There is no [...] performance characteristicsdetermined The Flow Cytometry [facility] at [facility]. It has notbeen cleared or approved by the FDA. This laboratory is certifiedunder the Clinical Laboratory Improvement Amendments (CLIA)as qualified to perform high complexity clinical laboratorytesting. This test is used for clinical purposes. It should notbe regarded as investigational or for research.[facility] Flow Cytometry Laboratory lower limitof CLL MRD detection is 0.1% of the gated lymphocytes. Performed By: #### G IPP ####[facility] (DEFAULT)[address] [address] MAGNESIUMon 09-03-2023 Interpretation and review of laboratory results Normal [facility] Magnesium [Mass/Vol] 1.6 mg/dL 1.6 - 2 .6 mg/dL [facility] Magnesium [Mass/Vol] 1.6 mg/dL Normal 1.6-2.6 [facility] Comment on above: Performed By: #### M GO, CHM7, [facility] ####[facility] (DEFAULT)[address] [place] [address] No Panel Informationon 09-03 Interpretation and review of laboratory results Abnormal [facility] PARVOVIRUS (B19) DNA, PCR, B LOODon 09-03-2023 PARVOVIRUS B19 BY RAPID PCR Not detected Not Detected [facility] HI SPEC SOURCE Whole Blood [facility] Portable XR Chest Viewson RADIOLOGY RADIOLOGY [facility] Radiology Study observation (narrative) [facility] Portable XR Chest ViewsOrder ed By: [place] on 09-03-2023 [facility] Work Phone: XR CHEST PORTABLEon 09-03-20 23 XR CHEST PORTABLE Normal [facility] ACID FAST CULTUREon 09-02-20 23 Bacteria identified Cx Nom (Unsp spec) NO GROWTH DAY 42 OF 42 Normal [facility] Comment on above: Performed By: #### A FB ####[facility] (DEFAULT)[address] [place] [address] Fluorochrome Stain No acid Fast Bacillus Seen Normal [facility] Comment on above: Performed By: #### A FB ####[facility] [facility] (DEFAULT)[address] [place] [address] Bacteria identified Cx Nom (Unsp spec) NO GROWTH DAY 42 OF 42 Normal [facility] Comment on above: Order Comment: BAL A FB culture. Clinical suspicion for non-tuberculous mycobacteria Performed By: #### A FB ####[facility] (DEFAULT)[address] [place] [address] Fluorochrome Stain No acid Fast Bacillus Seen Normal [facility] Comment on above: Order Comment: BAL A FB culture. Clinical suspicion for non-tuberculous mycobacteria Performed By: #### A FB ####[facility] (DEFAULT)[address] [place] [address] ASPERGILLUS (GALACTOMANNAN), ANTIGENon 09-02-2023 Galactomannan Ag IA Qn <0.500 NINF [facility] ASPERGILLUS ANTIGEN, BALon 1 Aspergillus Galactomannan Antigen, BAL <0.500 Normal <0.5 [facility] Comment on above: Result Comment: ---- ADDITIONAL INFORMATION This is a qualitative test and the resulted index value isnot indicative of disease severity. Serial testing isrecommended for patients at high risk for invasiveaspergillosis.This assay was performed using the FDA-cleared Bio-[employer]at[employer] Aspergillus Galactomannan EIA.Test Performed by:[address] [id number] Director: Rosendo Bose M.D. Ph.D.; CLIA# [id number] Performed By: #### X ASGFL ####[facility] (DEFAULT)[address] [address] Aspergillus Galactomannan Antigen, BAL <0.500 Normal <0.5 [facility] Comment on above: Order Comment: BAL a spirgillus antigen Result Comment: ---- ADDITIONAL INFORMATION This is a qualitative test and the resulted index value isnot indicative of disease severity. Serial testing isrecommended for patients at high risk for invasiveaspergillosis.This assay was performed using the FDA-cleared Bio-RadPlatelia Aspergillus Galactomannan EIA.Test Performed by:[place] [id number] Director: Rosendo Bose M.D. Ph.D.; CLIA# [id number] Performed By: #### X ASGFL ####[facility] (DEFAULT)[address] [address] ATYPICAL BACTERIAL PNEUMONIA ,PCROrdered By: Shari Contreras on 09-02-2023 B. parapertussis DNA ESTELITA+probe Ql (Unsp spec) Not detected Not Detected [facility] B. pertussis DNA ESTELITA+probe Ql (Unsp spec) Not detected Not Detected [facility] C. pneumoniae DNA ESTELITA+probe Ql (Unsp spec) Not detected Not Detected [facility] Interpretation and review of laboratory results Normal [facility] M. pneumoniae DNA ESTELITA+probe Ql (Unsp spec) Not detected Not Detected [facility] ATYPICAL BACTERIAL PNEUMONIA ,PCRon 09-02-2023 Bordetella Parapertussis Not detected Normal Not Detected [facility] Comment on above: Order Comment: Viral transport [...] Clinical Microbiology Laboratory at The [facility]. It has not been cleared or approved by the FDA. The laboratory is required under CLIA as qualified to perform high-complexity testing. This test is used for clinical purposes. It should not be regarded as investigational or for research. Performed By: #### A TYPNE ####[facility] (DEFAULT)[address] [address] Bordetella Pertussis Not detected Normal Not Detected [facility] Comment on above: Order Comment: Viral transport [...] Clinical Microbiology Laboratory at The [facility]. It has not been cleared or approved by the FDA. The laboratory is required under CLIA as qualified to perform high-complexity testing. This test is used for clinical purposes. It should not be regarded as investigational or for research. Performed By: #### A TYPNE ####[facility] (DEFAULT)[address] [place] [address] Chlamydia Pneumoniae Not detected Normal Not Detected [facility] Comment on above: Order Comment: Viral transport [...] Clinical Microbiology Laboratory at The [facility]. It has not been cleared or approved by the FDA. The laboratory is required under CLIA as qualified to perform high-complexity testing. This test is used for clinical purposes. It should not be regarded as investigational or for research. Performed By: #### A TYPNE ####[facility] (DEFAULT)[address] [place] [address] Mycoplasma Pneumoniae Not detected Normal Not Detected [facility] Comment on above: Order Comment: Viral transport [...] Clinical Microbiology Laboratory at The [facility]. It has not been cleared or approved by the FDA. The laboratory is required under CLIA as qualified to perform high-complexity testing. This test is used for clinical purposes. It should not be regarded as investigational or for research. Performed By: #### A TYPNE ####[facility] (DEFAULT)[address] [place] [address] BAL CONSULTon 09-02-2023 ALVEOLAR MACROPHAGES 33 % Normal [facility] Comment on above: Order Comment: BAL c onsultIf > 15% lymphocytes - please send for flow. Performed By: #### B ALC ####[facility] (DEFAULT)[address] [place] [address] Bal comments Correlation with microbiology stains and cultures is recommended. Correlation with viral studies is recommended. Normal [facility] Comment on above: Order Comment: BAL c onsultIf > 15% lymphocytes - please send for flow. Performed By: #### B ALC ####[facility] (DEFAULT)[address] [place] [address] Bal Diff Quik Stain Quality Check Acceptable Normal [facility] Comment on above: Order Comment: BAL c onsultIf > 15% lymphocytes - please send for flow. Performed By: #### B ALC ####[facility] (DEFAULT)[address] [place] [address], [place] [address] Bal Reviewed By: Leonardo Peralta MD [facility] Comment on above: Order Comment: BAL c onsultIf > 15% lymphocytes - please send for flow. Performed By: #### B ALC ####[facility] (DEFAULT)[address] [place] [address], [place] [address] BKR BAL INTERPRETATION Cellular specimen comprised of alveolar macrophages and small lymphocytes. No definitive microorganisms are observed. Rare degenerating cells with changes suggestive of viral cytopathic effect are noted. Moderate degenerative changes. Normal [facility] Comment on above: Order Comment: BAL c onsultIf > 15% lymphocytes - please send for flow. Performed By: #### B ALC ####[facility] (DEFAULT)[address] [place] [address] BKR DX CODE Use Ordering Normal [facility] Comment on above: Order Comment: BAL c onsultIf > 15% lymphocytes - please send for flow. Performed By: #### B ALC ####[facility] (DEFAULT)[address] [place] [address] Eosinophils/100 WBC (Bld) 0 % Normal [facility] Comment on above: Order Comment: BAL c onsultIf > 15% lymphocytes - please send for flow. Performed By: #### B ALC ####[facility] (DEFAULT)[address] [place] [address] Lymphocytes/100 WBC (Bld) 49 % Normal [facility] Comment on above: Order Comment: BAL c onsultIf > 15% lymphocytes - please send for flow. Performed By: #### B ALC ####[facility] (DEFAULT)[address] [facility] [place] [address] Neutrophils/100 WBC (Bld) 18 % Normal [facility] Comment on above: Order Comment: BAL c onsultIf > 15% lymphocytes - please send for flow. Performed By: #### B ALC ####[facility] (DEFAULT)[address] [place] [address] ALVEOLAR MACROPHAGES 32 % Normal [facility] Comment on above: Order Comment: BAL c onsult for cell differential and pathologist review. Please do flow cytometry if > 12% lymphocytes Performed By: #### B ALC ####[facility] (DEFAULT)[address] [place] [address] Bal comments Correlation with microbiology stains and cultures is recommended. [facility] Comment on above: Order Comment: BAL c onsult for cell differential and pathologist review. Please do flow cytometry if > 12% lymphocytes Performed By: #### B ALC ####[facility] (DEFAULT)[address] [place] [address] Bal Diff Quik Stain Quality Check Acceptable Normal [facility] Comment on above: Order Comment: BAL c onsult for cell differential and pathologist review. Please do flow cytometry if > 12% lymphocytes Performed By: #### B ALC ####[facility] (DEFAULT)[address] [place] [address] Bal Reviewed By: Leonardo Peralta MD [facility] Comment on above: Order Comment: BAL c onsult for cell differential and pathologist review. Please do flow cytometry if > 12% lymphocytes Performed By: #### B ALC ####[facility] (DEFAULT)[address] [place] [address] BKR BAL INTERPRETATION Cellular specimen comprised of alveolar macrophages and small lymphocytes. No definitive microorganisms are observed. Moderate degenerative changes. [facility] Comment on above: Order Comment: BAL c onsult for cell differential and pathologist review. Please do flow cytometry if > 12% lymphocytes Performed By: #### B ALC ####[facility] (DEFAULT)[address] [place] [address] BKR DX CODE Use Ordering Normal [facility] Comment on above: Order Comment: BAL c onsult for cell differential and pathologist review. Please do flow cytometry if > 12% lymphocytes Performed By: #### B ALC ####[facility] (DEFAULT)[address] [place] [address] Eosinophils/100 WBC (Bld) 0 % Normal [facility] Comment on above: Order Comment: BAL c onsult for cell differential and pathologist review. Please do flow cytometry if > 12% lymphocytes Performed By: #### B ALC ####[facility] (DEFAULT)[address] [place] [address] Lymphocytes/100 WBC (Bld) 57 % Normal [facility] Comment on above: Order Comment: BAL c onsult for cell differential and pathologist review. Please do flow cytometry if > 12% lymphocytes Performed By: #### B ALC ####[facility] (DEFAULT)[address] [place] [address] Neutrophils/100 WBC (Bld) 11 % Normal [facility] Comment on above: Order Comment: BAL c onsult for cell differential and pathologist review. Please do flow cytometry if > 12% lymphocytes Performed By: #### B ALC ####[facility] (DEFAULT)[address] [place] [address] BRONCHOSCOPYon 09-02-2023 Radiology Study observation (narrative) [facility] Bacteria identified Cx Nom ( Bld)on 09-02-2023 Bacteria identified Cx Nom (Unsp spec) NO GROWTH DAY 5 OF 5 [facility] CBC,PLATELETSon 09-02-2023 Erythrocyte distribution width (RBC) [Ratio] 13.2 % 10.9 - 14.3 % [facility] Hematocrit (Bld) [Volume fraction] 39.9 % 39.6 - 48.8 % [facility] Hemoglobin (Bld) [Mass/Vol] 12.9 g/dL Low 13.4 - 16.8 g/dL [facility] Interpretation and review of laboratory results Abnormal [facility] MCH (RBC) [Entitic mass] 27.9 pg 26.1 - 33.3 pg [facility] MCHC (RBC) [Mass/Vol] 32.3 g/dL 31.9 - 36.5 g/dL [facility] MCV (RBC) [Entitic vol] 86.4 fL 79.0 - 94.5 fL [facility] Platelet mean volume (Bld) [Entitic vol] 9.5 fL 8.7 - 12.3 fL [facility] Platelets (Bld) [#/Vol] 210 10*3/uL 146 - 337 K/uL [facility] RBC (Bld) [#/Vol] 4.62 10*6/uL [facility] WBC (Bld) [#/Vol] 4.12 10*3/uL 3.73 - 10. 10 K/uL [facility] Hematocrit (Bld) [Volume fraction] 39.9 % Normal 39.6-48.8 [facility] Comment on above: Performed By: #### H [facility] ####[facility] (DEFAULT)[address] [place] [address] Hemoglobin (Bld) [Mass/Vol] 12.9 g/dL Low 13.4-16.8 [facility] Comment on above: Performed By: #### H EMO ####[facility] (DEFAULT)[address] [place] [address] MCV (RBC) [Entitic vol] 86.4 fL Normal 79.0-94.5 [facility] Comment on above: Performed By: #### H EMO ####[facility] (DEFAULT)[address] [place] [address] Mean Cell Hgb 27.9 pg Normal 26.1-33.3 [facility] Comment on above: Performed By: #### H EMO ####[facility] (DEFAULT)[address] [place] [address] Mean Cell Hgb Conc 32.3 g/dL Normal 31.9-36.5 [facility] Comment on above: Performed By: #### H EMO ####[facility] (DEFAULT)[address] [place] [address] Platelet mean volume (Bld) [Entitic vol] 9.5 fL Normal 8.7-12.3 [facility] Comment on above: Performed By: #### H EMO ####[facility] (DEFAULT)[address] [place] [address] Platelets (Bld) [#/Vol] 210 10*3/uL Normal 146-337 [facility] Comment on above: Performed By: #### H EMO ####[facility] (DEFAULT)[address] [place] [address] RBC (Bld) [#/Vol] 4.62 10*6/uL Normal 4.38-5.83 [facility] Comment on above: Performed By: #### H EMO ####[facility] (DEFAULT)[address] [place] [address] RBC Distribution 13.2 % Normal 10.9-14.3 [facility] Comment on above: Performed By: #### H EMO ####[facility] (DEFAULT)[address] [place] [address] WBC (Bld) [#/Vol] 4.12 10*3/uL Normal 3.73-10.10 [facility] Comment on above: Performed By: #### H EMO ####[facility] (DEFAULT)[address] [place] [address] CHEM 7 (LYTES,BUN,CREA,GLUC) on 09-02-2023 Anion gap [Moles/Vol] 13 mmol/L 7 - 17 mmol/L [facility] Chloride [Moles/Vol] 105 mmol/L 98 - 10 8 mmol/L [facility] CO2 [Moles/Vol] 22 mmol/L 21 - 31 mmol/L [facility] Creatinine [Mass/Vol] 1.25 mg/dL 0.70 - 1.30 mg/dL [facility] eGFR, CKD-EPI, Male 69 - PINF [facility] Glucose [Mass/Vol] 105 mg/dL High 70 - 99 mg/dL [facility] Osmolality Calc [Osmolality] 287 [facility] Potassium [Moles/Vol] 4.3 mmol/L 3.5 - 5.0 mmol/L [facility] Sodium [Moles/Vol] 136 mmol/L 135 - 145 mmol/L [facility] Urea nitrogen [Mass/Vol] 16 mg/dL 7 - 25 mg/dL [facility] Urea nitrogen/Creatinine [Mass ratio] 13 mg/mg [facility] Anion gap [Moles/Vol] 13 mmol/L Normal 7-17 [facility] Comment on above: Performed By: #### H DOMENICA MONCADA CHM7 ####[facility] (DEFAULT)[address] [place] [address] Chloride [Moles/Vol] 105 mmol/L Normal 98-108 [facility] Comment on above: Performed By: #### DOMENICA MCKINNON CHM7 ####[facility] (DEFAULT)[address] [place] [address] CO2 [Moles/Vol] 22 mmol/L Normal 21-31 [facility] Comment on above: Performed By: #### DOMENICA MCKINNON CHM7 ####[facility] (DEFAULT)[address] [place] [address] Creatinine [Mass/Vol] 1.25 mg/dL Normal 0.70-1.30 [facility] Comment on above: Performed By: #### DOMENICA MCKINNON CHM7 ####[facility] (DEFAULT)[address] [place] [address] GFR/1.73 sq M.predicted among non-blacks MDRD (S/P/Bld) [Vol rate/Area] 69 mL/min/{1.73_m2} Normal >=60 [facility] Comment on above: Result Comment: Repo rted eGFR is based on the CKD-EPI 2020 equation using creatinine, age, and sex. Performed By: #### H ANTWAN MGRogelio CHM7 ####[facility] (DEFAULT)[address] [place] [address] Glucose [Mass/Vol] 105 mg/dL High 70-99 [facility] Comment on above: Performed By: #### H ANTWAN MGO CHM7 ####[facility] (DEFAULT)[address] [place] [address] Osmolality [Osmolality] 287 mosm/kg Normal 278-305 [facility] Comment on above: Performed By: #### H FP MGO CHM7 ####[facility] (DEFAULT)[address] [place] [address] Potassium [Moles/Vol] 4.3 mmol/L Normal 3.5-5.0 [facility] Comment on above: Performed By: #### H ANTWAN MGRogelio CHM7 ####[facility] (DEFAULT)[address] [place] [address] Sodium [Moles/Vol] 136 mmol/L Normal 135-145 [facility] Comment on above: Performed By: #### H FP MGO, CHM7 ####[facility] (DEFAULT)[address] [place] [address] Urea nitrogen [Mass/Vol] 16 mg/dL Normal 7-25 [facility] Comment on above: Performed By: #### H ANTWAN MGO CHM7 ####[facility] (DEFAULT)[address] [place] [address] Urea nitrogen/Creatinine [Mass ratio] 13 mg/mg Normal [facility] Comment on above: Performed By: #### H FP MGO CHM7 ####[facility] (DEFAULT)[address] [place] [address] CMV PCR,FLUIDS,URINE,EYE ETC on 09-02-2023 CMV by PCR Result Negative Normal Negative [facility] Comment on above: Result Comment: ---- ADDITIONAL INFORMATION This test was developed and its performance characteristicsdetermined by [facility] in a manner consistent with CLIArequirements. This test has not been cleared or approved bythe U.S. Food and Drug Administration.Test Performed by:[facility] [place] [id number] Director: Rosendo Bose M.D. Ph.D.; CLIA# [id number] Performed By: #### Y CMV ####[facility] (DEFAULT)[address] [place] [address] CMV BY PCR SOURCE BAL [facility] Normal [facility] Comment on above: Performed By: #### Y CMV ####[facility] (DEFAULT)[address] [place] [address] CMV by PCR Result Negative Normal Negative [facility] Comment on above: Result Comment: ---- ADDITIONAL INFORMATION This test was developed and its performance characteristicsdetermined by [facility] in a manner consistent with CLIArequirements. This test has not been cleared or approved bythe U.S. Food and Drug Administration.Test Performed by:[facility] - [address] [address]Ckt Director: Rosendo Bose M.D. Ph.D.; CLIA# [id number] Performed By: #### Y CMV ####[facility] (DEFAULT)[address] [place] [address], [place] [address] CMV BY PCR SOURCE BAL [facility] Comment on above: Performed By: #### Y CMV ####[facility] (DEFAULT)[address] [place] [address] CYTOLOGY, NON-GYNon 09-02-20 CYTOLOGIC DIAGNOSIS Normal [facility] Comment on above: Result Comment: A. B RONCHOALVEOLAR LAVAGE, LEFT LOWER LOBE (CYTOLOGY):FINAL DIAGNOSIS:No Malignant Cells Are IdentifiedHypocellular Specimen Performed By: #### N ONGNNONFNA ####[facility] (DEFAULT)[address] [place] [address] Case Report Normal [facility] Comment on above: Result Comment: Medi abhishek Cytology Report Case: [id number] Provider: Crow Diaz MD Collected: 09/02/2023 08:38 AMOrdering Location: [facility] Received: 09/02/2023 10:44 AMPathologist: KENTON Caglepecimen: BRONCHOALVEOLAR LAVAGE, LLL BAL Performed By: #### N ONGNNONFNA ####[facility] (DEFAULT)[address] [place] [address] Clinical History Renal transplant. Normal [facility] Comment on above: Performed By: #### N ONGNNONFNA ####[facility] (DEFAULT)[address] [place] [address] Gross Description Normal [facility] Comment on above: Result Comment: LLL BAL1 ml hazy colorless fld unfixed1 TP slide Pap stainFor Immediate Release to Patient's MyChart? Yes Performed By: #### N ONGNNONFNA ####[facility] (DEFAULT)[address] [place] [address] FUNGUS CULTUREon 09-02-2023 Bacteria identified Cx Nom (Unsp spec) Normal [facility] Comment on above: Order Comment: Ident ification was performed on the MALDI-TOF mass spectrometer [employer]. This test was developed by The Clinical Microbiology Laboratory at The [facility]. It has not been cleared or approved by the FDA. The laboratory is regulated under CLIA as qualified to perform high-complexity testing. This test is used for clinical purposes. It should not be regarded as investigational or for research. Result Comment: Grow [id number] [place] Histoplasma capsulatum Performed By: #### F UN ####[facility] (DEFAULT)[address] [place] [address] Bacteria identified Cx Nom (Unsp spec) NO GROWTH DAY 28 OF 28 Normal [facility] Comment on above: Order Comment: BAL f ungal culture Performed By: #### F UN ####[facility] (DEFAULT)[address] [place] [address] HEPATIC FUNCTION PANELon Albumin [Mass/Vol] 3.2 g/dL Low 3.5 - 5.0 g/dL [facility] ALP [Catalytic activity/Vol] 107 U/L 32 - 126 U/L [facility] ALT [Catalytic activity/Vol] 20 U/L 10 - 52 U/L [facility] AST [Catalytic activity/Vol] 31 U/L 10 - 39 U/L [facility] Bilirubin [Mass/Vol] 1.0 mg/dL NINF - 1.5 mg/dL [facility] Bilirubin.direct [Mass/Vol] 0.3 mg/dL High NINF - 0.3 mg/dL [facility] Protein [Mass/Vol] 6.6 g/dL 6.4 - 8.3 g/dL [facility] Albumin [Mass/Vol] 3.2 g/dL Low 3.5-5.0 [facility] Comment on above: Performed By: #### H DOMENICA MONCADA CHM7 ####[facility] (DEFAULT)[address] [place] [address] ALP [Catalytic activity/Vol] 107 U/L Normal 32-126 [facility] Comment on above: Performed By: #### H FP, MGO, CHM7 ####[facility] (DEFAULT)[address] [place] [address] ALT [Catalytic activity/Vol] 20 U/L Normal 10-52 [facility] Comment on above: Performed By: #### H FP, MGO, CHM7 ####[facility] (DEFAULT)[address] [place] [address] AST [Catalytic activity/Vol] 31 U/L Normal 10-39 [facility] Comment on above: Performed By: #### H FP, MGO, CHM7 ####[facility] (DEFAULT)[address] [place] [address] Bilirubin [Mass/Vol] 1.0 mg/dL Normal <1.5 [facility] Comment on above: Performed By: #### Lydia FP MGO, CHM7 ####[facility] (DEFAULT)[address] [place] [address] Bilirubin.indirect [Mass/Vol] 0.3 mg/dL High <0.3 [facility] Comment on above: Performed By: #### H ANTWAN MGO, CHM7 ####[facility] (DEFAULT)[address] [place] [address] Protein [Mass/Vol] 6.6 g/dL Normal 6.4-8.3 [facility] Comment on above: Performed By: #### H FP, MGO, CHM7 ####[facility] (DEFAULT)[address] [place] [address] HISTOPLASMA ANTIGEN, FLUIDon 09-02-2023 FH SOURCE BAL RML Normal [facility] Comment on above: Performed By: #### Y FHST ####[facility] (DEFAULT)[address] [place] [address] Histo FLD interpretation Negative Normal [facility] Comment on above: Result Comment: ---- ADDITIONAL INFORMATION Reference interval: None DetectedReportable Range: Positive Results reported in ng/mL from0.20 ng/mL to 20.00 ng/mLPositive Results above 20.00 ng/mL are reported as 'Abovethe Limit of Quantification'Cross-reactions occur with Blastomyces spp., Coccidioidesspp., and Paracoccidioides brasiliensis.This test was developed and its performance characteristicsdetermined by [employer]. It has not beencleared or approved by the FDA; however, FDA clearance orapproval is not currently required for clinical use. Theresults are not intended to be used as the sole means forclinical diagnosis or patient management decisions.Test Performed by:[id number] [place] [address] Performed By: #### Y ST ####[facility] (DEFAULT)[address] [place] [address] Histoplasma Antigen, FLUID Not detected Normal [facility] Comment on above: Performed By: #### Y FHST ####[facility] (DEFAULT)[address] [place] [address] HISTOPLASMA ANTIGEN,URINEon 09-02-2023 H. capsulatum Ag (U) [Mass/Vol] Not detected ng/mL [facility] H. capsulatum Ag IA Ql (U) Not detected Not Detected [facility] HISTOPLASMA CAPSULATUM/BLAST OMYCES SPECIES,PCR FLUIDon 09-02-2023 HISTO/BLASTO RESULT Negative Normal Not Applicable [facility] Comment on above: Result Comment: A Ne gative result from BAL fluid does not rule out thepresence of Histoplasma capsulatum because the sensitivity from this source is suboptimal. ADDITIONAL INFORMATION This test was developed and its performance characteristicsdetermined by [facility] in a manner consistent with CLIArequirements. This test has not been cleared or approved bythe U.S. Food and Drug Administration.Test Performed by:[address] [address]Kga Director: Rosendo Bose M.D. Ph.D.; CLIA# [id number] Performed By: #### Y HBRP ####[facility] (DEFAULT)[address] [facility] [place] [address] Source BAL RML Normal [facility] Comment on above: Performed By: #### Y HBRP ####[facility] (DEFAULT)[address] [place] [address] HIV 1 AND 2 ANTIBODIES/P24 A NTIGENOrdered By: Wilma Luque on 09-02-2023 HIV 1+2 Ab+HIV1 p24 Ag IA Ql Non-Reactive Non Reactive [facility] Interpretation and review of laboratory results Normal [facility] HIV 1 AND 2 ANTIBODIES/P24 A NTIGENon 09-02-2023 HIV-1/HIV-2 Ab With p24 Antigen Non-Reactive Normal Non Reactive [facility] Comment on above: Performed By: #### L [id number] ####[facility] (DEFAULT)[address] [place] [address], [place] [address] LEGIONELLA CULTUREon 023 Bacteria identified Cx Nom (Unsp spec) NO GROWTH DAY 7 OF 7 Normal [facility] Comment on above: Performed By: #### L EGN ####[facility] (DEFAULT)[address] [place] [address] Bacteria identified Cx Nom (Unsp spec) NO GROWTH DAY 7 OF 7 Normal [facility] Comment on above: Order Comment: BAL l egionella culture Performed By: #### L EGN ####[facility] (DEFAULT)[address] [place] [address] LEGIONELLA PCRon 09-02-2023 Legionella species, Culture BAL RML Normal [facility] Comment on above: Performed By: #### Y LEGRP ####[facility] (DEFAULT)[address] [place] [address] Legionella, pcr result Negative Normal Not Applicable [facility] Comment on above: Result Comment: ---- ADDITIONAL INFORMATION This test was developed and its performance characteristicsdetermined by [facility] in a manner consistent with CLIArequirements. This test has not been cleared or approved bythe U.S. Food and Drug Administration.Test Performed by:[address] [address]Oow Director: Rosendo Bose M.D. Ph.D.; CLIA# [id number] Performed By: #### Y LEGRP ####[facility] (DEFAULT)[address] [place] [address] LOWER RESPIRATORY CULTURE, B ACTERIALon 09-02-2023 Bacteria identified Cx Nom (Unsp spec) NO GROWTH DAY 2 OF 2 Normal [facility] Comment on above: Performed By: #### R ES ####[facility] (DEFAULT)[address] [place] [address] Microscopic observation Gram stain Nom (Unsp spec) Normal [facility] Comment on above: Result Comment: Cyto centrifuge preparationNeutrophils, RareRed Blood Cells PresentNo organisms seen Performed By: #### R ES ####[facility] (DEFAULT)[address] [facility] [place] [address] Bacteria identified Cx Nom (Unsp spec) NO GROWTH DAY 2 OF 2 Normal [facility] Comment on above: Order Comment: BAL b acterial respiratory culture Performed By: #### R ES ####[facility] (DEFAULT)[address] [facility] [place] [address] Microscopic observation Gram stain Nom (Unsp spec) Normal [facility] Comment on above: Order Comment: BAL b acterial respiratory culture Result Comment: Cyto centrifuge preparationNeutrophils, ModerateRed Blood Cells PresentNo organisms seen Performed By: #### R ES ####[facility] (DEFAULT)[address] [place] [address] MAGNESIUMon 09-02-2023 Interpretation and review of laboratory results Normal [facility] Magnesium [Mass/Vol] 1.7 mg/dL 1.6 - 2 .6 mg/dL [facility] Magnesium [Mass/Vol] 1.7 mg/dL Normal 1.6-2.6 [facility] Comment on above: Performed By: #### H FP, MGO, CHM7 ####[facility] (DEFAULT)[address] [place] [address] No Panel Informationon 09-02 Interpretation and review of laboratory results Abnormal [facility] PNEUMOCYSTIS JIROVECI,PCRon 09-02-2023 PN Report Status DNR Normal [facility] Comment on above: Performed By: #### Y PNRP ####[facility] (DEFAULT)[address] [place] [address] PN Specimen Source BAL RML Normal [facility] Comment on above: Performed By: #### Y PNRP ####[facility] (DEFAULT)[address] [place] [address] Pneum jiroveci comment DNR Normal [facility] Comment on above: Performed By: #### Y PNRP ####[facility] (DEFAULT)[address] [place] [address], [place] [address] Pneumocystis jiroveci,PCR result Negative Normal Not Applicable [facility] Comment on above: Result Comment: ---- ADDITIONAL INFORMATION This test was developed and its performance characteristicsdetermined by [facility] in a manner consistent with CLIArequirements. This test has not been cleared or approved bythe U.S. Food and Drug Administration.Test Performed by:[address] [address]Dqs Director: Rosendo Bose M.D. Ph.D.; CLIA# [id number] Performed By: #### Y PNRP ####[facility] (DEFAULT)[address] [place] [address], [place] [address] PN Report Status DNR Normal [facility] Comment on above: Performed By: #### Y PNRP ####[facility] (DEFAULT)[address] [place] [address], [place] [address] PN Specimen Source BAL LLL Normal [facility] Comment on above: Performed By: #### Y PNRP ####[facility] (DEFAULT)[address] [place] [address], [place] [address] Pneum jiroveci comment DNR Normal [facility] Comment on above: Performed By: #### Y PNRP ####[facility] (DEFAULT)[address] [place] [address], [place] [address] Pneumocystis jiroveci,PCR result Negative Normal Not Applicable [facility] Comment on above: Result Comment: ---- ADDITIONAL INFORMATION This test was developed and its performance characteristicsdetermined by [facility] in a manner consistent with CLIArequirements. This test has not been cleared or approved bythe U.S. Food and Drug Administration.Test Performed by:[address] [address]Ntn Director: Rosendo Bose M.D. Ph.D.; CLIA# [id number] Performed By: #### Y PNRP ####[facility] (DEFAULT)[address] [place] [address] TACROLIMUS LEVEL, TROUGH (HI E DRUG LEVEL)on 09-02-2023 Interpretation and review of laboratory results Normal [facility] Tacrolimus (Bld) [Mass/Vol] 4.2 ng/mL [facility] Tacrol[facility], Trough 4.2 ng/mL Normal [facility] Susana ow Transplant: 4.0-12.0, Therapeutic: 5.0-15.0 [facility] Comment on above: Order Comment: Dilan gregory draw at specified interval PRIOR to dose. Do not hold dose to wait for level. Specimens batched twice per day, (M-F) and once per day weekendsMethod performed is a chemiluminescent microparticle immunoasssay on the [employer] i2000.The range is based on experience at [facility] and users should be aware that target concentrations vary widely depending on concomitant therapy, time post-transplant, and desired degree of immunosuppression. Performed By: #### T ACRO ####[facility] (DEFAULT)[address] [place] [address] CBC,PLATELETSon 09-01-2023 Erythrocyte distribution width (RBC) [Ratio] 13.4 % 10.9 - 14.3 % [facility] Hematocrit (Bld) [Volume fraction] 38.9 % Low 39.6 - 48.8 % [facility] Hemoglobin (Bld) [Mass/Vol] 12.7 g/dL Low 13.4 - 16.8 g/dL [facility] Interpretation and review of laboratory results Abnormal [facility] MCH (RBC) [Entitic mass] 27.6 pg 26.1 - 33.3 pg [facility] MCHC (RBC) [Mass/Vol] 32.6 g/dL 31.9 - 36.5 g/dL [facility] MCV (RBC) [Entitic vol] 84.6 fL 79.0 - 94.5 fL [facility] Platelet mean volume (Bld) [Entitic vol] 9.4 fL 8.7 - 12.3 fL [facility] Platelets (Bld) [#/Vol] 209 10*3/uL 146 - 337 K/uL [facility] RBC (Bld) [#/Vol] 4.60 10*6/uL [facility] WBC (Bld) [#/Vol] 4.41 10*3/uL 3.73 - 10. 10 K/uL [facility] Hematocrit (Bld) [Volume fraction] 38.9 % Low 39.6-48.8 [facility] Comment on above: Performed By: #### H EMOGC ####[facility] (DEFAULT)[address] [place] [address] Hemoglobin (Bld) [Mass/Vol] 12.7 g/dL Low 13.4-16.8 [facility] Comment on above: Performed By: #### H EMOGC ####[facility] (DEFAULT)[address] [place] [address] MCV (RBC) [Entitic vol] 84.6 fL Normal 79.0-94.5 [facility] Comment on above: Performed By: #### H EMOGC ####[facility] (DEFAULT)[address] [place] [address] Mean Cell Hgb 27.6 pg Normal 26.1-33.3 [facility] Comment on above: Performed By: #### H EMOGC ####[facility] (DEFAULT)[address] [place] [address] Mean Cell Hgb Conc 32.6 g/dL Normal 31.9-36.5 [facility] Comment on above: Performed By: #### H EMOGC ####[facility] (DEFAULT)[address] [place] [address] Platelet mean volume (Bld) [Entitic vol] 9.4 fL Normal 8.7-12.3 [facility] Comment on above: Performed By: #### H EMOGC ####[facility] (DEFAULT)[address] [place] [address] Platelets (Bld) [#/Vol] 209 10*3/uL Normal 146-337 [facility] Comment on above: Performed By: #### H EMOGC ####[facility] (DEFAULT)[address] [place] [address] RBC (Bld) [#/Vol] 4.60 10*6/uL Normal 4.38-5.83 [facility] Comment on above: Performed By: #### H [facility] ####[facility] (DEFAULT)[address] [place] [address] RBC Distribution 13.4 % Normal 10.9-14.3 [facility] Comment on above: Performed By: #### H [facility] ####[facility] (DEFAULT)[address] [place] [address] WBC (Bld) [#/Vol] 4.41 10*3/uL Normal 3.73-10.10 [facility] Comment on above: Performed By: #### H [facility] ####[facility] (DEFAULT)[address] [place] [address] CHEM 7 (LYTES,BUN,CREA,GLUC) on 09-01-2023 Anion gap [Moles/Vol] 14 mmol/L 7 - 17 mmol/L [facility] Chloride [Moles/Vol] 103 mmol/L 98 - 10 8 mmol/L [facility] CO2 [Moles/Vol] 21 mmol/L 21 - 31 mmol/L [facility] Creatinine [Mass/Vol] 1.16 mg/dL 0.70 - 1.30 mg/dL [facility] eGFR, CKD-EPI, Male 76 - PINF [facility] Glucose [Mass/Vol] 117 mg/dL High 70 - 99 mg/dL [facility] Osmolality Calc [Osmolality] 285 [facility] Potassium [Moles/Vol] 4.2 mmol/L 3.5 - 5.0 mmol/L [facility] Sodium [Moles/Vol] 134 mmol/L Low 135 - 145 mmol/L [facility] Urea nitrogen [Mass/Vol] 18 mg/dL 7 - 25 mg/dL [facility] Urea nitrogen/Creatinine [Mass ratio] 16 mg/mg [facility] Anion gap [Moles/Vol] 14 mmol/L Normal 7-17 [facility] Comment on above: Performed By: #### H DOMENICA MONCADA CHM7 ####[facility] (DEFAULT)[address] [place] [address] Chloride [Moles/Vol] 103 mmol/L Normal 98-108 [facility] Comment on above: Performed By: #### H ANTWAN MGRogelio CHM7 ####[facility] (DEFAULT)[address] [place] [address] CO2 [Moles/Vol] 21 mmol/L Normal 21-31 [facility] Comment on above: Performed By: #### H ANTWAN MGO CHM7 ####[facility] (DEFAULT)[address] [place] [address] Creatinine [Mass/Vol] 1.16 mg/dL Normal 0.70-1.30 [facility] Comment on above: Performed By: #### H ANTWAN MGO CHM7 ####[facility] (DEFAULT)[address] [place] [address] GFR/1.73 sq M.predicted among non-blacks MDRD (S/P/Bld) [Vol rate/Area] 76 mL/min/{1.73_m2} Normal >=60 [facility] Comment on above: Result Comment: Repo rted eGFR is based on the CKD-EPI 2020 equation using creatinine, age, and sex. Performed By: #### H FP MGO CHM7 ####[facility] (DEFAULT)[address] [place] [address] Glucose [Mass/Vol] 117 mg/dL High 70-99 [facility] Comment on above: Performed By: #### H FP, MGO, CHM7 ####[facility] (DEFAULT)[address] [place] [address] Osmolality [Osmolality] 285 mosm/kg Normal 278-305 [facility] Comment on above: Performed By: #### H ANTWAN MGO CHM7 ####[facility] (DEFAULT)[address] [place] [address] Potassium [Moles/Vol] 4.2 mmol/L Normal 3.5-5.0 [facility] Comment on above: Performed By: #### H ANTWAN MGO CHM7 ####[facility] (DEFAULT)[address] [place] [address] Sodium [Moles/Vol] 134 mmol/L Low 135-145 [facility] Comment on above: Performed By: #### H ANTWAN MGO CHM7 ####[facility] (DEFAULT)[address] [place] [address] Urea nitrogen [Mass/Vol] 18 mg/dL Normal 7-25 [facility] Comment on above: Performed By: #### Lydia MONCADA MGRogelio CHM7 ####[facility] (DEFAULT)[address] [place] [address] Urea nitrogen/Creatinine [Mass ratio] 16 mg/mg Normal [facility] Comment on above: Performed By: #### H ANTWAN MGO, CHM7 ####[facility] (DEFAULT)[address] [facility] [place] [address] CRYPTOCOCCAL ANTIGENon 09-01 Cryptococcus sp Ag Ql (S) Negative Negative [facility] Interpretation and review of laboratory results Normal [facility] Cryptococcus Antigen,Serum Negative Normal Negative [facility] Comment on above: Performed By: #### C RAG ####[facility] (DEFAULT)[address] [facility] [place] [address] HEPATIC FUNCTION PANELon Albumin [Mass/Vol] 3.3 g/dL Low 3.5 - 5.0 g/dL [facility] ALP [Catalytic activity/Vol] 112 U/L 32 - 126 U/L [facility] ALT [Catalytic activity/Vol] 21 U/L 10 - 52 U/L [facility] AST [Catalytic activity/Vol] 29 U/L 10 - 39 U/L [facility] Bilirubin [Mass/Vol] 1.0 mg/dL NINF - 1.5 mg/dL [facility] Bilirubin.direct [Mass/Vol] 0.2 mg/dL NINF - 0.3 mg/dL [facility] Protein [Mass/Vol] 6.8 g/dL 6.4 - 8.3 g/dL [facility] Albumin [Mass/Vol] 3.3 g/dL Low 3.5-5.0 [facility] Comment on above: Performed By: #### H FP, MGO, CHM7 ####[facility] (DEFAULT)[address] [place] [address] ALP [Catalytic activity/Vol] 112 U/L Normal 32-126 [facility] Comment on above: Performed By: #### H FP, MGO, CHM7 ####[facility] (DEFAULT)[address] [place] [address] ALT [Catalytic activity/Vol] 21 U/L Normal 10-52 [facility] Comment on above: Performed By: #### H FP, MGO, CHM7 ####[facility] (DEFAULT)[address] [place] [address] AST [Catalytic activity/Vol] 29 U/L Normal 10-39 [facility] Comment on above: Performed By: #### H FP, MGO, CHM7 ####[facility] (DEFAULT)[address] [place] [address] Bilirubin [Mass/Vol] 1.0 mg/dL Normal <1.5 [facility] Comment on above: Performed By: #### H FP, MGO, CHM7 ####[facility] (DEFAULT)[address] [place] [address] Bilirubin.indirect [Mass/Vol] 0.2 mg/dL Normal <0.3 [facility] Comment on above: Performed By: #### H DOMENICA MONCADA CHM7 ####[facility] (DEFAULT)[address] [place] [address] Protein [Mass/Vol] 6.8 g/dL Normal 6.4-8.3 [facility] Comment on above: Performed By: #### H DOMENICA MONCADA CHM7 ####[facility] (DEFAULT)[address] [place] [address], [place] [address] L. pneumophila 1 Ag IA Ql (U )Ordered By: Carolin Miles on 09-01-2023 Interpretation and review of laboratory results Normal [facility] LEGIONELLA URINARY AGOrdered By: Carolin Miles on 09-01-2023 L. pneumophila 1 Ag IA Ql (U) Negative Negative [facility] MAGNESIUMon 09-01-2023 Interpretation and review of laboratory results Normal [facility] Magnesium [Mass/Vol] 1.6 mg/dL 1.6 - 2 .6 mg/dL [facility] Magnesium [Mass/Vol] 1.6 mg/dL Normal 1.6-2.6 [facility] Comment on above: Performed By: #### H DOMENICA MONCADA CHM7 ####[facility] (DEFAULT)[address] [place] [address] No Panel Informationon 09-01 Interpretation and review of laboratory results Abnormal [facility] PARVOVIRUS (B19) DNA, PCR, B LOODon 09-01-2023 PARVOVIRUS B19 BY RAPID PCR Not detected Normal Not Detected [facility] Comment on above: Result Comment: The primers/probe used in this assay will detectparvovirus B19 and V9 (genotypes 1 # 3) but maynot detect parvovirus genotype 2. The majority ofcirculating Parvovirus B19 strains in the [facility] are genotype 1. Genotype 2 is not believed tocirculate widely in the [place], but has beenassociated with similar clinical features as genotype1. Genotype 3 is most prevalent in some [place].This test was developed and its analyticalperformance characteristics have been determinedby [facility] [place], [place].It has not been cleared or approved by the FDA. Thisassay has been validated pursuant to the CLIAregulations and is used for clinical purposes.Test Performed at:[facility] [address] [address]FygtmcbRamon Benavides M.D., Ph.D.,Director of Laboratories Performed By: #### Y PRVP ####[facility] (DEFAULT)[address] [address] [place] SPEC SOURCE Whole Blood Normal [facility] Comment on above: Performed By: #### Y PRVP ####[facility] (DEFAULT)[address] [address] [place] (GALACTOMANNAN), ANTIGENon 08-31-2023 Aspergillus Antigen <0.500 Normal <0.5 [facility] Comment on above: Result Comment: ---- ADDITIONAL INFORMATION This is a qualitative test and the resulted index value isnot indicative of disease severity. Serial testing isrecommended for patients at high risk for invasiveaspergillosis.This assay was performed using the FDA-cleared Bio[employer]Pro[employer] TechnologyPlatelia Aspergillus Galactomannan EIA.Test Performed by:[facility] [place] [id number] Director: Rosendo Bose M.D. Ph.D.; CLIA# [id number] Performed By: #### Y ASPR ####[facility] (DEFAULT)[address] [address] CBC,PLATELETSon 08-31-2023 Erythrocyte distribution width (RBC) [Ratio] 13.3 % 10.9 - 14.3 % [facility] Hematocrit (Bld) [Volume fraction] 39.4 % Low 39.6 - 48.8 % [facility] Hemoglobin (Bld) [Mass/Vol] 12.8 g/dL Low 13.4 - 16.8 g/dL [facility] Interpretation and review of laboratory results Abnormal [facility] MCH (RBC) [Entitic mass] 27.6 pg 26.1 - 33.3 pg [facility] MCHC (RBC) [Mass/Vol] 32.5 g/dL 31.9 - 36.5 g/dL [facility] MCV (RBC) [Entitic vol] 85.1 fL 79.0 - 94.5 fL [facility] Platelet mean volume (Bld) [Entitic vol] 9.6 fL 8.7 - 12.3 fL [facility] Platelets (Bld) [#/Vol] 228 10*3/uL 146 - 337 K/uL [facility] RBC (Bld) [#/Vol] 4.63 10*6/uL [facility] WBC (Bld) [#/Vol] 4.77 10*3/uL 3.73 - 10. 10 K/uL [facility] Hematocrit (Bld) [Volume fraction] 39.4 % Low 39.6-48.8 [facility] Comment on above: Performed By: #### [facility] ####[facility] (DEFAULT)[address] [place] [address] Hemoglobin (Bld) [Mass/Vol] 12.8 g/dL Low 13.4-16.8 [facility] Comment on above: Performed By: #### [facility] ####[facility] (DEFAULT)[address] [place] [address] MCV (RBC) [Entitic vol] 85.1 fL Normal 79.0-94.5 [facility] Comment on above: Performed By: #### [facility] ####[facility] (DEFAULT)[address] [place] [address] Mean Cell Hgb 27.6 pg Normal 26.1-33.3 [facility] Comment on above: Performed By: #### H EMOGC ####[facility] (DEFAULT)[address] [place] [address] Mean Cell Hgb Conc 32.5 g/dL Normal 31.9-36.5 [facility] Comment on above: Performed By: #### H EMOGC ####[facility] (DEFAULT)[address] [facility] [address] Platelet mean volume (Bld) [Entitic vol] 9.6 fL Normal 8.7-12.3 [facility] Comment on above: Performed By: #### H EMOGC ####[facility] (DEFAULT)[address] [place] [address] Platelets (Bld) [#/Vol] 228 10*3/uL Normal 146-337 [facility] Comment on above: Performed By: #### H EMOGC ####[facility] (DEFAULT)[address] [place] [address] RBC (Bld) [#/Vol] 4.63 10*6/uL Normal 4.38-5.83 [facility] Comment on above: Performed By: #### H EMOGC ####[facility] (DEFAULT)[address] [facility] [address] RBC Distribution 13.3 % Normal 10.9-14.3 [facility] Comment on above: Performed By: #### H EMOGC ####[facility] (DEFAULT)[address] [place] [address] WBC (Bld) [#/Vol] 4.77 10*3/uL Normal 3.73-10.10 [facility] Comment on above: Performed By: #### H EMOGC ####[facility] (DEFAULT)[address] [place] [address] CHEM 7 (LYTES,BUN,CREA,GLUC) on 08-31-2023 Anion gap [Moles/Vol] 13 mmol/L 7 - 17 mmol/L [facility] Chloride [Moles/Vol] 102 mmol/L 98 - 10 8 mmol/L [facility] CO2 [Moles/Vol] 23 mmol/L 21 - 31 mmol/L [facility] Creatinine [Mass/Vol] 1.37 mg/dL High 0.70 - 1.30 mg/dL [facility] eGFR, CKD-EPI, Male 62 - PINF [facility] Glucose [Mass/Vol] 112 mg/dL High 70 - 99 mg/dL [facility] Osmolality Calc [Osmolality] 284 [facility] Potassium [Moles/Vol] 4.4 mmol/L 3.5 - 5.0 mmol/L [facility] Sodium [Moles/Vol] 134 mmol/L Low 135 - 145 mmol/L [facility] Urea nitrogen [Mass/Vol] 16 mg/dL 7 - 25 mg/dL [facility] Urea nitrogen/Creatinine [Mass ratio] 12 mg/mg [facility] Anion gap [Moles/Vol] 13 mmol/L Normal 7-17 [facility] Comment on above: Performed By: #### M TAVO BLOOM, CHM7, FERIB, PROCAL ####[facility] (DEFAULT)[address] [place] [address] Chloride [Moles/Vol] 102 mmol/L Normal 98-108 [facility] Comment on above: Performed By: #### M MERLE HFP, CHM7, FERIB, PROCAL ####[facility] (DEFAULT)[address] [place] [address] CO2 [Moles/Vol] 23 mmol/L Normal 21-31 [facility] Comment on above: Performed By: #### M MERLE HFP, CHM7, FERIB, PROCAL ####[facility] (DEFAULT)[address] [place] [address] Creatinine [Mass/Vol] 1.37 mg/dL High 0.70-1.30 [facility] Comment on above: Performed By: #### TAVO RAMÍREZ, CHM7, FERIB, PROCAL ####[facility] (DEFAULT)[address] [place] [address] GFR/1.73 sq M.predicted among non-blacks MDRD (S/P/Bld) [Vol rate/Area] 62 mL/min/{1.73_m2} Normal >=60 [facility] Comment on above: Result Comment: Repo rted eGFR is based on the CKD-EPI 2020 equation using creatinine, age, and sex. Performed By: #### TAVO RAMÍREZ, CHM7, FERIB, PROCAL ####[facility] (DEFAULT)[address] [place] [address] Glucose [Mass/Vol] 112 mg/dL High 70-99 [facility] Comment on above: Performed By: #### TAVO RAMÍREZ, CHM7, FERIB, PROCAL ####[facility] (DEFAULT)[address] [place] [address] Osmolality [Osmolality] 284 mosm/kg Normal 278-305 [facility] Comment on above: Performed By: #### Rod BLOOM HFP, CHM7, FERIB, PROCAL ####[facility] (DEFAULT)[address] [place] [address] Potassium [Moles/Vol] 4.4 mmol/L Normal 3.5-5.0 [facility] Comment on above: Performed By: #### TAVO RAMÍREZ, CHM7, FERIB, PROCAL ####[facility] (DEFAULT)[address] [place] [address] Sodium [Moles/Vol] 134 mmol/L Low 135-145 [facility] Comment on above: Performed By: #### Rod BLOOM HFP, CHM7, FERIB, PROCAL ####[facility] (DEFAULT)[address] [place] [address], [place] [address] Urea nitrogen [Mass/Vol] 16 mg/dL Normal 7-25 [facility] Comment on above: Performed By: #### M GO, HFP, CHM7, FERIB, PROCAL ####[facility] (DEFAULT)[address] [place] [address] Urea nitrogen/Creatinine [Mass ratio] 12 mg/mg Normal [facility] Comment on above: Performed By: #### M GO, HFP, CHM7, FERIB, PROCAL ####[facility] (DEFAULT)[address] [place] [address] CT ABDOMEN/PELVIS WITHOUT CO NTRASTon 08-31-2023 CT ABDOMEN/PELVIS WITHOUT CONTRAST Normal [facility] CT Abdomen and Pelvis WO con traston 08-31-2023 RADIOLOGY RADIOLOGY [facility] Radiology Study observation (narrative) [facility] CT Abdomen and Pelvis WO con trastOrdered By: Chavez Larkin on 08-31-2023 [facility] Work Phone: CT CHEST WITHOUT CONTRASTon 08-31-2023 CT CHEST WITHOUT CONTRAST Normal [facility] CT Chest WO contraston 08-31 RADIOLOGY RADIOLOGY [facility] Radiology Study observation (narrative) [facility] CT Chest WO contrastOrdered By: Daisha Patterson on 08-31-2023 [facility] Work Phone: FERRITINon 08-31-2023 Ferritin [Mass/Vol] 409.0 ng/mL High 10.5 - 3 07.3 ng/mL [facility] Interpretation and review of laboratory results Abnormal [facility] Ferritin [Mass/Vol] 409.0 ng/mL High 10.5-307.3 [facility] Comment on above: Performed By: #### M GO, HFP, CHM7, FERIB, PROCAL ####[facility] (DEFAULT)[address] [place] [address] HEPATIC FUNCTION PANELon Albumin [Mass/Vol] 3.3 g/dL Low 3.5 - 5.0 g/dL [facility] ALP [Catalytic activity/Vol] 113 U/L 32 - 126 U/L [facility] ALT [Catalytic activity/Vol] 25 U/L 10 - 52 U/L [facility] AST [Catalytic activity/Vol] 31 U/L 10 - 39 U/L [facility] Bilirubin [Mass/Vol] 1.1 mg/dL NINF - 1.5 mg/dL [facility] Bilirubin.direct [Mass/Vol] 0.3 mg/dL High NINF - 0.3 mg/dL [facility] Protein [Mass/Vol] 7.0 g/dL 6.4 - 8.3 g/dL [facility] Albumin [Mass/Vol] 3.3 g/dL Low 3.5-5.0 [facility] Comment on above: Performed By: #### M GO, HFP, CHM7, FERIB, PROCAL ####[facility] (DEFAULT)[address] [place] [address] ALP [Catalytic activity/Vol] 113 U/L Normal 32-126 [facility] Comment on above: Performed By: #### M GO, HFP, CHM7, FERIB, PROCAL ####[facility] (DEFAULT)[address] [place] [address] ALT [Catalytic activity/Vol] 25 U/L Normal 10-52 [facility] Comment on above: Performed By: #### M GO, HFP, CHM7, FERIB, PROCAL ####[facility] (DEFAULT)[address] [place] [address] AST [Catalytic activity/Vol] 31 U/L Normal 10-39 [facility] Comment on above: Performed By: #### M GO, HFP, CHM7, FERIB, PROCAL ####[facility] (DEFAULT)[address] [place] [address] Bilirubin [Mass/Vol] 1.1 mg/dL Normal <1.5 [facility] Comment on above: Performed By: #### M GO, HFP, CHM7, FERIB, PROCAL ####[facility] (DEFAULT)[address] [place] [address] Bilirubin.indirect [Mass/Vol] 0.3 mg/dL High <0.3 [facility] Comment on above: Performed By: #### M GO, HFP, CHM7, FERIB, PROCAL ####[facility] (DEFAULT)[address] [place] [address] Protein [Mass/Vol] 7.0 g/dL Normal 6.4-8.3 [facility] Comment on above: Performed By: #### M GO, HFP, CHM7, FERIB, PROCAL ####[facility] (DEFAULT)[address] [place] [address] LEGIONELLA URINARY AGon 10- Legionella Urinary Antigen Negative Normal Negative [facility] Comment on above: Performed By: #### L EGION ####[facility] (DEFAULT)[address] [place] [address] MAGNESIUMon 08-31-2023 Interpretation and review of laboratory results Normal [facility] Magnesium [Mass/Vol] 1.7 mg/dL 1.6 - 2 .6 mg/dL [facility] Magnesium [Mass/Vol] 1.7 mg/dL Normal 1.6-2.6 [facility] Comment on above: Performed By: #### M GO, HFP, CHM7, FERIB, PROCAL ####[facility] (DEFAULT)[address] [place] [address] No Panel Informationon 08-31 Interpretation and review of laboratory results Abnormal [facility] PROCALCITONINon 08-31-2023 Interpretation and review of laboratory results Normal [facility] Procalcitonin [Mass/Vol] 0.23 ng/mL NINF - 0.50 ng/mL [facility] Procalcitonin 0.23 ng/mL Normal <0.50 [facility] Comment on above: Result Comment: Proc alcitonin [...] and trend procalcitonin in various clinical settings. [email or web address] [email or web address]=[email or web address] common cutoffs associated with bacterial infections are as follows.Respiratory tract infections: >0.25 ng/mLSepsis/septic shock: >0.5 ng/mLProcalcitonin should not be used alone as a diagnostic tool, however. All procalcitonin results should be interpreted in association with the patients clinical condition and all laboratory findings. Performed By: #### M MERLE, TAVO, CHM7, CATINA, PROCLAURYN ####[facility] (DEFAULT)[address] [place] [address] TACROLIMUS LEVEL, TROUGH (HI E DRUG LEVEL)Ordered By: Yanira Marcum on 08-31-2023 Interpretation and review of laboratory results Normal [facility] Tacrolimus (Bld) [Mass/Vol] 5.9 ng/mL [facility] TACROLIMUS LEVEL, TROUGH (HI E DRUG LEVEL)on 08-31-2023 Tacrolimus, Trough 5.9 ng/mL Normal [facility] Ssuana ow Transplant: 4.0-12.0, Therapeutic: 5.0-15.0 [facility] Comment on above: Order Comment: Pleas e draw at specified interval PRIOR to dose. Do not hold dose to wait for level. Specimens batched twice per day, (M-F) and once per day weekendsMethod performed is a chemiluminescent microparticle immunoasssay on the [employer] i2000.The range is based on experience at [facility] and users should be aware that target concentrations vary widely depending on concomitant therapy, time post-transplant, and desired degree of immunosuppression. Performed By: #### T ACRO ####[facility] (DEFAULT)[address] [place] [address] URINE CULTUREOrdered By: Jorge crowe Held on 08-31-2023 Bacteria identified Cx Nom (Unsp spec) No Growth [facility] DARYL AURIS SCREEN BY PCRO rdered By: Mynor Alejandro on 08-30-2023 Daryl auris Screen by PCR Not detected Not Detected [facility] Interpretation and review of laboratory results Normal [facility] CBC,PLATELETSon 08-30-2023 Erythrocyte distribution width (RBC) [Ratio] 13.3 % 10.9 - 14.3 % [facility] Hematocrit (Bld) [Volume fraction] 41.3 % 39.6 - 48.8 % [facility] Hemoglobin (Bld) [Mass/Vol] 13.2 g/dL Low 13.4 - 16.8 g/dL [facility] Interpretation and review of laboratory results Abnormal [facility] MCH (RBC) [Entitic mass] 27.3 pg 26.1 - 33.3 pg [facility] MCHC (RBC) [Mass/Vol] 32.0 g/dL 31.9 - 36.5 g/dL [facility] MCV (RBC) [Entitic vol] 85.5 fL 79.0 - 94.5 fL [facility] Platelet mean volume (Bld) [Entitic vol] 9.2 fL 8.7 - 12.3 fL [facility] Platelets (Bld) [#/Vol] 235 10*3/uL 146 - 337 K/uL [facility] RBC (Bld) [#/Vol] 4.83 10*6/uL [facility] WBC (Bld) [#/Vol] 4.96 10*3/uL 3.73 - 10. 10 K/uL [facility] Hematocrit (Bld) [Volume fraction] 41.3 % Normal 39.6-48.8 [facility] Comment on above: Performed By: #### H EMOGC ####[facility] (DEFAULT)[address] [place] [address] Hemoglobin (Bld) [Mass/Vol] 13.2 g/dL Low 13.4-16.8 [facility] Comment on above: Performed By: #### H EMOGC ####[facility] (DEFAULT)[address] [place] [address] MCV (RBC) [Entitic vol] 85.5 fL Normal 79.0-94.5 [facility] Comment on above: Performed By: #### H EMOGC ####[facility] (DEFAULT)[address] [place] [address] Mean Cell Hgb 27.3 pg Normal 26.1-33.3 [facility] Comment on above: Performed By: #### H EMOGC ####[facility] (DEFAULT)[address] [place] [address] Mean Cell Hgb Conc 32.0 g/dL Normal 31.9-36.5 [facility] Comment on above: Performed By: #### H EMOGC ####[facility] (DEFAULT)[address] [place] [address] Platelet mean volume (Bld) [Entitic vol] 9.2 fL Normal 8.7-12.3 [facility] Comment on above: Performed By: #### H EMOGC ####[facility] (DEFAULT)[address] [place] [address] Platelets (Bld) [#/Vol] 235 10*3/uL Normal 146-337 [facility] Comment on above: Performed By: #### H [facility] ####[facility] (DEFAULT)[address] [place] [address] RBC (Bld) [#/Vol] 4.83 10*6/uL Normal 4.38-5.83 [facility] Comment on above: Performed By: #### H [facility] ####[facility] (DEFAULT)[address] [place] [address] RBC Distribution 13.3 % Normal 10.9-14.3 [facility] Comment on above: Performed By: #### H [facility] ####[facility] (DEFAULT)[address] [place] [address] WBC (Bld) [#/Vol] 4.96 10*3/uL Normal 3.73-10.10 [facility] Comment on above: Performed By: #### [facility] ####[facility] (DEFAULT)[address] [place] [address] CHEM 7 (LYTES,BUN,CREA,GLUC) on 08-30-2023 Anion gap [Moles/Vol] 14 mmol/L 7 - 17 mmol/L [facility] Chloride [Moles/Vol] 102 mmol/L 98 - 10 8 mmol/L [facility] CO2 [Moles/Vol] 20 mmol/L Low 21 - 31 mmol/L [facility] Creatinine [Mass/Vol] 1.56 mg/dL High 0.70 - 1.30 mg/dL [facility] eGFR, CKD-EPI, Male 53 Low - PINF [facility] Glucose [Mass/Vol] 123 mg/dL High 70 - 99 mg/dL [facility] Osmolality Calc [Osmolality] 281 [facility] Potassium [Moles/Vol] 4.3 mmol/L 3.5 - 5.0 mmol/L [facility] Sodium [Moles/Vol] 132 mmol/L Low 135 - 145 mmol/L [facility] Urea nitrogen [Mass/Vol] 16 mg/dL 7 - 25 mg/dL [facility] Urea nitrogen/Creatinine [Mass ratio] 10 mg/mg [facility] Anion gap [Moles/Vol] 14 mmol/L Normal 7-17 [facility] Comment on above: Performed By: #### TJ RAMÍREZ7, HFP ####[facility] (DEFAULT)[address] [place] [address] Chloride [Moles/Vol] 102 mmol/L Normal 98-108 [facility] Comment on above: Performed By: #### TJ RAMÍREZ7, HFP ####[facility] (DEFAULT)[address] [place] [address] CO2 [Moles/Vol] 20 mmol/L Low 21-31 [facility] Comment on above: Performed By: #### NATHANIEL RAMÍREZ, HFP ####[facility] (DEFAULT)[address] [place] [address] Creatinine [Mass/Vol] 1.56 mg/dL High 0.70-1.30 [facility] Comment on above: Performed By: #### NATHANIEL RAMÍREZ, HFP ####[facility] (DEFAULT)[address] [place] [address] GFR/1.73 sq M.predicted among non-blacks MDRD (S/P/Bld) [Vol rate/Area] 53 mL/min/{1.73_m2} Low >=60 [facility] Comment on above: Result Comment: Repo rted eGFR is based on the CKD-EPI 2020 equation using creatinine, age, and sex. Performed By: #### NATHANIEL RAMÍREZ, HFP ####[facility] (DEFAULT)[address] [place] [address] Glucose [Mass/Vol] 123 mg/dL High 70-99 [facility] Comment on above: Performed By: #### NATHANIEL RAMÍREZ, HFP ####[facility] (DEFAULT)[address] [place] [address] Osmolality [Osmolality] 281 mosm/kg Normal 278-305 [facility] Comment on above: Performed By: #### NATHANIEL RAMÍREZ, HFP ####[facility] (DEFAULT)[address] [place] [address] Potassium [Moles/Vol] 4.3 mmol/L Normal 3.5-5.0 [facility] Comment on above: Performed By: #### NATHANIEL RAMÍREZ, HFP ####[facility] (DEFAULT)[address] [place] [address] Sodium [Moles/Vol] 132 mmol/L Low 135-145 [facility] Comment on above: Performed By: #### NATHANIEL RAMÍREZ, HFP ####[facility] (DEFAULT)[address] [place] [address] Urea nitrogen [Mass/Vol] 16 mg/dL Normal 7-25 [facility] Comment on above: Performed By: #### NATHANIEL RAMÍREZ, HFP ####[facility] (DEFAULT)[address] [place] [address] Urea nitrogen/Creatinine [Mass ratio] 10 mg/mg Normal [facility] Comment on above: Performed By: #### NATHANIEL RAMÍREZ, HFP ####[facility] (DEFAULT)[address] [place] [address] EXTRA MICROon 08-30-2023 [facility] HEPATIC FUNCTION PANELon Albumin [Mass/Vol] 3.7 g/dL 3.5 - 5.0 g/dL [facility] ALP [Catalytic activity/Vol] 115 U/L 32 - 126 U/L [facility] ALT [Catalytic activity/Vol] 22 U/L 10 - 52 U/L [facility] AST [Catalytic activity/Vol] 34 U/L 10 - 39 U/L [facility] Bilirubin [Mass/Vol] 1.2 mg/dL NINF - 1.5 mg/dL [facility] Bilirubin.direct [Mass/Vol] 0.3 mg/dL High NINF - 0.3 mg/dL [facility] Protein [Mass/Vol] 7.7 g/dL 6.4 - 8.3 g/dL [facility] Albumin [Mass/Vol] 3.7 g/dL Normal 3.5-5.0 [facility] Comment on above: Performed By: #### M MERLE CHM7, HFP ####[facility] (DEFAULT)[address] [place] [address] ALP [Catalytic activity/Vol] 115 U/L Normal 32-126 [facility] Comment on above: Performed By: #### M MERLE CHM7, HFP ####[facility] (DEFAULT)[address] [place] [address] ALT [Catalytic activity/Vol] 22 U/L Normal 10-52 [facility] Comment on above: Performed By: #### M MERLE CHM7, HFP ####[facility] (DEFAULT)[address] [place] [address] AST [Catalytic activity/Vol] 34 U/L Normal 10-39 [facility] Comment on above: Performed By: #### M GO CHM7, HFP ####[facility] (DEFAULT)[address] [place] [address] Bilirubin [Mass/Vol] 1.2 mg/dL Normal <1.5 [facility] Comment on above: Performed By: #### M GO CHM7, HFP ####[facility] (DEFAULT)[address] [place] [address] Bilirubin.indirect [Mass/Vol] 0.3 mg/dL High <0.3 [facility] Comment on above: Performed By: #### M GO, CHM7, HFP ####[facility] (DEFAULT)[address] [place] [address] Protein [Mass/Vol] 7.7 g/dL Normal 6.4-8.3 [facility] Comment on above: Performed By: #### NATHANIEL RAMÍREZ, HFP ####[facility] (DEFAULT)[address] [place] [address] MAGNESIUMon 08-30-2023 Interpretation and review of laboratory results Normal [facility] Magnesium [Mass/Vol] 1.8 mg/dL 1.6 - 2 .6 mg/dL [facility] Magnesium [Mass/Vol] 1.8 mg/dL Normal 1.6-2.6 [facility] Comment on above: Performed By: #### NATHANIEL RAMÍREZ, HFP ####[facility] (DEFAULT)[address] [place] [address] No Panel Informationon 08-30 Interpretation and review of laboratory results Abnormal [facility] CBC,PLATELETSon 08-29-2023 Erythrocyte distribution width (RBC) [Ratio] 13.4 % 10.9 - 14.3 % [facility] Hematocrit (Bld) [Volume fraction] 37.6 % Low 39.6 - 48.8 % [facility] Hemoglobin (Bld) [Mass/Vol] 12.2 g/dL Low 13.4 - 16.8 g/dL [facility] Interpretation and review of laboratory results Abnormal [facility] MCH (RBC) [Entitic mass] 27.6 pg 26.1 - 33.3 pg [facility] MCHC (RBC) [Mass/Vol] 32.4 g/dL 31.9 - 36.5 g/dL [facility] MCV (RBC) [Entitic vol] 85.1 fL 79.0 - 94.5 fL [facility] Platelet mean volume (Bld) [Entitic vol] 9.4 fL 8.7 - 12.3 fL [facility] Platelets (Bld) [#/Vol] 233 10*3/uL 146 - 337 K/uL [facility] RBC (Bld) [#/Vol] 4.42 10*6/uL [facility] WBC (Bld) [#/Vol] 4.92 10*3/uL 3.73 - 10. 10 K/uL [facility] Hematocrit (Bld) [Volume fraction] 37.6 % Low 39.6-48.8 [facility] Comment on above: Performed By: #### H EMOGC ####[facility] (DEFAULT)[address] [facility] [place] [address] Hemoglobin (Bld) [Mass/Vol] 12.2 g/dL Low 13.4-16.8 [facility] Comment on above: Performed By: #### H EMOGC ####[facility] (DEFAULT)[address] [place] [address] MCV (RBC) [Entitic vol] 85.1 fL Normal 79.0-94.5 [facility] Comment on above: Performed By: #### H EMOGC ####[facility] (DEFAULT)[address] [place] [address] Mean Cell Hgb 27.6 pg Normal 26.1-33.3 [facility] Comment on above: Performed By: #### H EMOGC ####[facility] (DEFAULT)[address] [place] [address] Mean Cell Hgb Conc 32.4 g/dL Normal 31.9-36.5 [facility] Comment on above: Performed By: #### H EMOGC ####[facility] (DEFAULT)[address] [place] [address] Platelet mean volume (Bld) [Entitic vol] 9.4 fL Normal 8.7-12.3 [facility] Comment on above: Performed By: #### H EMOGC ####[facility] (DEFAULT)[address] [place] [address] Platelets (Bld) [#/Vol] 233 10*3/uL Normal 146-337 [facility] Comment on above: Performed By: #### H [facility] ####[facility] (DEFAULT)[address] [place] [address] RBC (Bld) [#/Vol] 4.42 10*6/uL Normal 4.38-5.83 [facility] Comment on above: Performed By: #### H [facility] ####[facility] (DEFAULT)[address] [place] [address] RBC Distribution 13.4 % Normal 10.9-14.3 [facility] Comment on above: Performed By: #### H [facility] ####[facility] (DEFAULT)[address] [place] [address] WBC (Bld) [#/Vol] 4.92 10*3/uL Normal 3.73-10.10 [facility] Comment on above: Performed By: #### H [facility] ####[facility] (DEFAULT)[address] [place] [address] CHEM 7 (LYTES,BUN,CREA,GLUC) on 08-29-2023 Anion gap [Moles/Vol] 13 mmol/L 7 - 17 mmol/L [facility] Chloride [Moles/Vol] 105 mmol/L 98 - 10 8 mmol/L [facility] CO2 [Moles/Vol] 20 mmol/L Low 21 - 31 mmol/L [facility] Creatinine [Mass/Vol] 1.55 mg/dL High 0.70 - 1.30 mg/dL [facility] eGFR, CKD-EPI, Male 54 Low - PINF [facility] Glucose [Mass/Vol] 108 mg/dL High 70 - 99 mg/dL [facility] Osmolality Calc [Osmolality] 283 [facility] Potassium [Moles/Vol] 4.5 mmol/L 3.5 - 5.0 mmol/L [facility] Sodium [Moles/Vol] 133 mmol/L Low 135 - 145 mmol/L [facility] Urea nitrogen [Mass/Vol] 19 mg/dL 7 - 25 mg/dL [facility] Urea nitrogen/Creatinine [Mass ratio] 12 mg/mg [facility] Anion gap [Moles/Vol] 13 mmol/L Normal 7-17 [facility] Comment on above: Performed By: #### M GO, CHM7, GGTB, HFP ####[facility] (DEFAULT)[address] [place] [address] Chloride [Moles/Vol] 105 mmol/L Normal 98-108 [facility] Comment on above: Performed By: #### M GO, CHM7, GGTB, HFP ####[facility] (DEFAULT)[address] [place] [address] CO2 [Moles/Vol] 20 mmol/L Low 21-31 [facility] Comment on above: Performed By: #### M GO, CHM7, GGTB, HFP ####[facility] (DEFAULT)[address] [place] [address] Creatinine [Mass/Vol] 1.55 mg/dL High 0.70-1.30 [facility] Comment on above: Performed By: #### M GO, CHM7, GGTB, HFP ####[facility] (DEFAULT)[address] [place] [address] GFR/1.73 sq M.predicted among non-blacks MDRD (S/P/Bld) [Vol rate/Area] 54 mL/min/{1.73_m2} Low >=60 [facility] Comment on above: Result Comment: Repo rted eGFR is based on the CKD-EPI 2020 equation using creatinine, age, and sex. Performed By: #### M GO, CHM7, GGTB, HFP ####[facility] (DEFAULT)[address] [place] [address] Glucose [Mass/Vol] 108 mg/dL High 70-99 [facility] Comment on above: Performed By: #### M GO, CHM7, GGTB, HFP ####[facility] (DEFAULT)[address] [place] [address] Osmolality [Osmolality] 283 mosm/kg Normal 278-305 [facility] Comment on above: Performed By: #### M GO, CHM7, GGTB, HFP ####[facility] (DEFAULT)[address] [place] [address] Potassium [Moles/Vol] 4.5 mmol/L Normal 3.5-5.0 [facility] Comment on above: Performed By: #### M GO, CHM7, GGTB, HFP ####[facility] (DEFAULT)[address] [place] [address] Sodium [Moles/Vol] 133 mmol/L Low 135-145 [facility] Comment on above: Performed By: #### M GO, CHM7, GGTB, HFP ####[facility] (DEFAULT)[address] [place] [address] Urea nitrogen [Mass/Vol] 19 mg/dL Normal 7-25 [facility] Comment on above: Performed By: #### M GO, CHM7, GGTB, HFP ####[facility] (DEFAULT)[address] [place] [address] Urea nitrogen/Creatinine [Mass ratio] 12 mg/mg Normal [facility] Comment on above: Performed By: #### M GO, CHM7, GGTB, HFP ####[facility] (DEFAULT)[address] [place] [address] GGTon 08-29-2023 Gamma glutamyl transferase [Catalytic activity/Vol] 64 U/L 8 - 64 U/L [facility] Interpretation and review of laboratory results Normal [facility] Gamma glutamyl transferase [Catalytic activity/Vol] 64 U/L Normal 8-64 [facility] Comment on above: Performed By: #### M GO, CHM7, GGTB, HFP ####[facility] (DEFAULT)[address] [place] [address] HEPATIC FUNCTION PANELon Albumin [Mass/Vol] 3.3 g/dL Low 3.5 - 5.0 g/dL [facility] ALP [Catalytic activity/Vol] 103 U/L 32 - 126 U/L [facility] ALT [Catalytic activity/Vol] 18 U/L 10 - 52 U/L [facility] AST [Catalytic activity/Vol] 27 U/L 10 - 39 U/L [facility] Bilirubin [Mass/Vol] 1.1 mg/dL NINF - 1.5 mg/dL [facility] Bilirubin.direct [Mass/Vol] 0.3 mg/dL High NINF - 0.3 mg/dL [facility] Protein [Mass/Vol] 6.8 g/dL 6.4 - 8.3 g/dL [facility] Albumin [Mass/Vol] 3.3 g/dL Low 3.5-5.0 [facility] Comment on above: Performed By: #### M GO, CHM7, GGTB, HFP ####[facility] (DEFAULT)[address] [place] [address] ALP [Catalytic activity/Vol] 103 U/L Normal 32-126 [facility] Comment on above: Performed By: #### M GO, CHM7, GGTB, HFP ####[facility] (DEFAULT)[address] [place] [address] ALT [Catalytic activity/Vol] 18 U/L Normal 10-52 [facility] Comment on above: Performed By: #### M GO, CHM7, GGTB, HFP ####[facility] (DEFAULT)[address] [place] [address] AST [Catalytic activity/Vol] 27 U/L Normal 10-39 [facility] Comment on above: Performed By: #### M GO, CHM7, GGTB, HFP ####[facility] (DEFAULT)[address] [place] [address] Bilirubin [Mass/Vol] 1.1 mg/dL Normal <1.5 [facility] Comment on above: Performed By: #### M GO, CHM7, GGTB, HFP ####[facility] (DEFAULT)[address] [place] [address] Bilirubin.indirect [Mass/Vol] 0.3 mg/dL High <0.3 [facility] Comment on above: Performed By: #### M GO, CHM7, GGTB, HFP ####[facility] (DEFAULT)[address] [place] [address] Protein [Mass/Vol] 6.8 g/dL Normal 6.4-8.3 [facility] Comment on above: Performed By: #### M GO, CHM7, GGTB, HFP ####[facility] (DEFAULT)[address] [place] [address] HISTOPLASMA AND BLASTOMYCES ANTIGEN, ENZYME IMMUNOASSAY, SERMon 08-29-2023 Histoplasma/Blastomy antonia Ag Result Detected Invalid Interpretation Code Not Detected [facility] Comment on above: Result Comment: Anti gen from Histoplasma or Blastomyces (unable todifferentiate) detected. Result should be correlated withclinical presentation, exposure history, and otherdiagnostic procedures, including culture, serology,histopathology, and/or radiographic findings, to aid in thedifferentiation between histoplasmosis and blastomycosis.CRITICAL RESULT Performed By: #### H IBAG ####[facility] (DEFAULT)[address] [place] [address] Histoplasma/Blastomy antonia Ag Value 5.3 ng/mL Normal [facility] Comment on above: Result Comment: ---- ADDITIONAL INFORMATION This test was developed and its performance characteristicsdetermined by [facility] in a manner consistent with CLIArequirements. This test has not been cleared or approved bythe U.S. Food and Drug Administration.Test Performed by:[address] Director: Rosendo Bose M.D. Ph.D.; CLIA# [id number] Performed By: #### H IBAG ####[facility] (DEFAULT)[address] [place] [address], [place] [address] HISTOPLASMA ANTIGEN,URINEon 08-29-2023 HISTOPLASM AG, URINE Not detected Normal Not Detected [facility] Comment on above: Result Comment: No H istoplasma antigen detected.False negative results may occur. Repeat testing on anew specimen should be considered if clinically indicated. Performed By: #### Y HISTG ####[facility] (DEFAULT)[address] [place] [address], [place] [address] Histoplasma Ag Value Not detected Normal [facility] Comment on above: Result Comment: ---- ADDITIONAL INFORMATION This test has been modified from the lab tech'sinstructions. Its performance characteristics weredetermined by [facility] in a manner consistent withCLIA requirements. This test has not been cleared orapproved by the U.S. Food and Drug Administration.Test Performed by:[place] [id number] Director: Rosendo Bose M.D. Ph.D.; CLIA# [id number] Performed By: #### Y HISTG ####[facility] (DEFAULT)[address] [place] [address] MAGNESIUMon 08-29-2023 Interpretation and review of laboratory results Normal [facility] Magnesium [Mass/Vol] 1.7 mg/dL 1.6 - 2 .6 mg/dL [facility] Magnesium [Mass/Vol] 1.7 mg/dL Normal 1.6-2.6 [facility] Comment on above: Performed By: #### M TJ BLOOM7, GGTB, HFP ####[facility] (DEFAULT)[address] [place] [address] No Panel Informationon 08-29 Interpretation and review of laboratory results Abnormal [facility] PT,INR,PTTon 08-29-2023 aPTT Coag (PPP) [Time] 29.3 s [facility] INR Coag (Bld) [Relative time] 1.1 {INR} 0.9 - 1.1 [facility] Interpretation and review of laboratory results Normal [facility] PT Coag (PPP) [Time] 13.8 s [facility] aPTT Coag (Bld) [Time] 29.3 s Normal 24.0-34.3 [facility] Comment on above: Performed By: #### P TPTT ####[facility] (DEFAULT)[address] [place] [address] INR Coag (PPP) [Relative time] 1.1 {INR} Normal 0.9-1.1 [facility] Comment on above: Performed By: #### P TPTT ####[facility] (DEFAULT)[address] [place] [address] PT Coag (PPP) [Time] 13.8 s Normal 11.9-14.2 [facility] Comment on above: Performed By: #### P TPTT ####[facility] (DEFAULT)[address] [place] [address] Portable XR Chest Viewson RADIOLOGY RADIOLOGY [facility] Portable XR Chest ViewsOrder ed By: Gerald Baer on 08-29-2023 [facility] Work Phone: TACROLIMUS LEVEL, TROUGH (HI E DRUG LEVEL)on 08-29-2023 Interpretation and review of laboratory results Normal [facility] Tacrolimus (Bld) [Mass/Vol] 8.9 ng/mL [facility] Tacrolimus, Trough 8.9 ng/mL Normal [facility] Transplant: 4.0-12.0, Therapeutic: 5.0-15.0 [facility] Comment on above: Order Comment: Pleas e draw at specified interval PRIOR to dose. Do not hold dose to wait for level. Specimens batched twice per day, (M-F) and once per day weekendsMethod performed is a chemiluminescent microparticle immunoasssay on the [employer] i2000.The range is based on experience at [facility] and users should be aware that target concentrations vary widely depending on concomitant therapy, time post-transplant, and desired degree of immunosuppression. Performed By: #### T ACRO ####[facility] (DEFAULT)[address] [place] [address] Tacrolimus, Trough 8.7 ng/mL Normal [facility] Transplant: 4.0-12.0, Therapeutic: 5.0-15.0 [facility] Comment on above: Order Comment: Pleas e draw at specified interval PRIOR to dose. Do not hold dose to wait for level. Specimens batched twice per day, (M-F) and once per day weekendsMethod performed is a chemiluminescent microparticle immunoasssay on the [employer] i2000.The range is based on experience at [facility] and users should be aware that target concentrations vary widely depending on concomitant therapy, time post-transplant, and desired degree of immunosuppression. Performed By: #### T ACRO ####[facility] (DEFAULT)[address] [place] [address] TACROLIMUS LEVEL, TROUGH (HI E DRUG LEVEL)Ordered By: Roxanne Louie on 08-29-2023 Interpretation and review of laboratory results Normal [facility] Tacrolimus (Bld) [Mass/Vol] 8.7 ng/mL [facility] URINALYSIS REFLEX TO CULTURE PERFORMABLEOrdered By: Shaji Kelly on 08-29-2023 Appearance (U) Clear Clear [facility] Bacteria LM Ql (Urine sed) ABSENT ABSENT [facility] Calcium Oxalate Crystals PRESENT [facility] Color (U) Yellow Yellow [facility] Epithelial cells.squamous LM Ql (Urine sed) 0-2/hpf 0-2/hpf, 3-5/hpf = 1+ [facility] Glucose Test strip (U) [Mass/Vol] Negative Negative [facility] Interpretation and review of laboratory results Abnormal [facility] Ketones (U) [Mass/Vol] Negative Negative [facility] Leukocyte esterase Test strip Ql (U) Negative Negative [facility] Nitrite Ql (U) Negative Negative [facility] pH (U) 6.0 [pH] 5.0 - 7.0 [facility] Protein (U) [Mass/Vol] Negative Negative [facility] RBC (U) [#/Vol] Trace Abnormal Negative [facility] RBC LM.HPF (Urine sed) [#/Area] 3-5 Abnormal [facility] Specific gravity (U) [Rel density] 1.015 1.001 - 1.035 [facility] Urobilinogen (U) [Mass/Vol] 1.0 E.U./dL 0.2 E.U/dL, 1.0 E.U/dL [facility] WBC LM.HPF (Urine sed) [#/Area] 0 - 5 [facility] URINALYSIS REFLEX TO CULTURE PERFORMABLEon 08-29-2023 Appearance (U) Clear Normal Clear [facility] Comment on above: Order Comment: For i ndwelling catheters, specimen collection is acceptable on catheter day 1 and 2 only. ? Performed By: #### U [id number] ####[facility] (DEFAULT)[address] [place] [address] Bacteria ABSENT Normal ABSENT [facility] Comment on above: Order Comment: For i ndwelling catheters, specimen collection is acceptable on catheter day 1 and 2 only. ? Performed By: #### U [id number] ####[facility] (DEFAULT)[address] [place] [address] Blood Urine Trace Abnormal Negative [facility] Comment on above: Order Comment: For i ndwelling catheters, specimen collection is acceptable on catheter day 1 and 2 only. ? Performed By: #### U [id number] ####[facility] (DEFAULT)[address] [place] [address] Calcium Oxalate Crystals PRESENT Normal [facility] Comment on above: Order Comment: For i ndwelling catheters, specimen collection is acceptable on catheter day 1 and 2 only. ? Performed By: #### U [id number] ####[facility] (DEFAULT)[address] [place] [address] Color (U) Yellow Normal Yellow [facility] Comment on above: Order Comment: For i ndwelling catheters, specimen collection is acceptable on catheter day 1 and 2 only. ? Performed By: #### U [id number] ####[facility] (DEFAULT)[address] [place] [address] Glucose Ql (U) Negative Normal Negative [facility] Comment on above: Order Comment: For i ndwelling catheters, specimen collection is acceptable on catheter day 1 and 2 only. ? Performed By: #### U [id number] ####[facility] (DEFAULT)[address] [place] [address] Ketones Ql (U) Negative Normal Negative [facility] Comment on above: Order Comment: For i ndwelling catheters, specimen collection is acceptable on catheter day 1 and 2 only. ? Performed By: #### U [id number] ####[facility] (DEFAULT)[address] [place] [address] Leukocyte esterase Test strip Ql (U) Negative Normal Negative [facility] Comment on above: Order Comment: For i ndwelling catheters, specimen collection is acceptable on catheter day 1 and 2 only. ? Performed By: #### U [id number] ####[facility] (DEFAULT)[address] [place] [address] Nitrites Urine Negative Normal Negative [facility] Comment on above: Order Comment: For i ndwelling catheters, specimen collection is acceptable on catheter day 1 and 2 only. ? Performed By: #### U [id number] ####[facility] (DEFAULT)[address] [place] [address] pH (U) 6.0 [pH] Normal 5.0-7.0 [facility] Comment on above: Order Comment: For i ndwelling catheters, specimen collection is acceptable on catheter day 1 and 2 only. ? Performed By: #### U [id number] ####[facility] (DEFAULT)[address] [place] [address] Protein Urine Negative Normal Negative [facility] Comment on above: Order Comment: For i ndwelling catheters, specimen collection is acceptable on catheter day 1 and 2 only. ? Performed By: #### U [id number] ####[facility] (DEFAULT)[address] [place], [place] [address], [place] [address] RBC Urine 3-5 Abnormal 0-2 [facility] Comment on above: Order Comment: For i ndwelling catheters, specimen collection is acceptable on catheter day 1 and 2 only. ? Performed By: #### U [id number] ####[facility] (DEFAULT)[address] [place], [place] [address], [place] [address] Specific [place] Urine 1.015 Normal 1.001-1.035 [facility] Comment on above: Order Comment: For i ndwelling catheters, specimen collection is acceptable on catheter day 1 and 2 only. ? Performed By: #### U [id number] ####[facility] (DEFAULT)[address] [place] [address] Squamous/Epithelial Cells 0-2/hpf Normal 0-2/hpf, 3-5/hpf = 1+ [facility] Comment on above: Order Comment: For i ndwelling catheters, specimen collection is acceptable on catheter day 1 and 2 only. ? Performed By: #### U [id number] ####[facility] (DEFAULT)[address] [place] [address] Urobilinogen Urine 1.0 E.U./dL Normal 0.2 E.U/d L, 1.0 E.U/dL [facility] Comment on above: Order Comment: For i ndwelling catheters, specimen collection is acceptable on catheter day 1 and 2 only. ? Performed By: #### U [id number] ####[facility] (DEFAULT)[address] [place] [address] WBC Urine 0 - 5 Normal 0 - 5 [facility] [facility] Comment on above: Order Comment: For i ndwelling catheters, specimen collection is acceptable on catheter day 1 and 2 only. ? Performed By: #### U [id number] ####[facility] (DEFAULT)[address] [place] [address] 42491 URINE CULTUREon 08-29-2023 Bacteria identified Cx Nom (U) No Growth Normal [facility] Comment on above: Order Comment: For i ndwelling catheters, specimen collection is acceptable on catheter day 1 and 2 only. Sung top vacutainer. Urine must be to the fill line to process (4mls). If minimum volume, send urine in a yellow top vacutainer tube. Performed By: #### U R ####[facility] (DEFAULT)[address] [place] [address]48 US RENAL TRANSPLANT SCANon 0 08-29-2023 US RENAL TRANSPLANT SCAN Normal [facility] US for transplanted kidney l imitedon 08-29-2023 RADIOLOGY RADIOLOGY [facility] Radiology Study observation (narrative) [facility] US for transplanted kidney l imitedOrdered By: Romana Matias on 08-29-2023 [facility] Work Phone: XR CHEST PORTABLEon 08-29-20 XR CHEST PORTABLE Normal [facility] BLOOD CULTUREon 08-28-2023 Bacteria identified Cx Nom (Unsp spec) NO GROWTH DAY 5 OF 5 Normal [facility] Comment on above: Order Comment: 2 Bot tles (1 Set - consists of 1 Aerobic bottle and 1 Anaerobic bottle) -1st Peripheral DrawFor syringe method draw:If able to obtain adequate sample (20 ml) inoculate anaerobic bottle firstIf inadequate sample obtained (less than 20 ml) inoculate aerobic bottle firstFor vacutainer method draw: Fill aerobic bottle first, then anaerobic Performed By: #### B LDCULT ####[facility] (DEFAULT)[address] [place] [address] 0[address] Bacteria identified Cx Nom (Unsp spec) NO GROWTH DAY 5 OF 5 Normal [facility] Comment on above: Order Comment: 2 Bot tles (1 Set - consists of 1 Aerobic bottle and 1 Anaerobic bottle) -1st Peripheral DrawFor syringe method draw:If able to obtain adequate sample (20 ml) inoculate anaerobic bottle firstIf inadequate sample obtained (less than 20 ml) inoculate aerobic bottle firstFor vacutainer method draw: Fill aerobic bottle first, then anaerobic Performed By: #### B LDCULT ####[facility] (DEFAULT)[address] [place] [address]267 DARYL AURIS SCREEN BY PCRo n 08-28-2023 Daryl auris Screen by PCR Not detected Normal Not Detected [facility] Comment on above: Order Comment: This test was performed using a real-time PCR assay. This test was developed, and its performance characteristics determined by [facility] at [facility]. It has not been cleared or approved by the FDA. The laboratory is regulated under CLIA as qualified to perform high-complexity testing. This test is used for clinical purposes. It should not be regarded as investigational or for research. Performed By: #### C ANDIDA AURIS SCREEN BY PCR ####[facility] (DEFAULT)[address] [place] [address]175 CBC AND ELECTRONIC DIFFon Basophils (Bld) [#/Vol] K/uL 0.00 - 0.09 K/uL [facility] Basophils/100 WBC (Bld) 0.6 % [facility] Differential cell count method Nom (Bld) Electronic Differential [facility] Eosinophils (Bld) [#/Vol] 0.10 10*3/uL 0.00 - 0.48 K/uL [facility] Eosinophils/100 WBC (Bld) 2.1 % [facility] Erythrocyte distribution width (RBC) [Ratio] 13.4 % 10.9 - 14.3 % [facility] Hematocrit (Bld) [Volume fraction] 37.9 % Low 39.6 - 48.8 % [facility] Hemoglobin (Bld) [Mass/Vol] 12.4 g/dL Low 13.4 - 16.8 g/dL [facility] Immature granulocytes (Bld) [#/Vol] K/uL NINF - 0.07 K/uL [facility] Immature granulocytes/100 WBC (Bld) 0.6 % [facility] Interpretation and review of laboratory results Abnormal [facility] Lymphocytes (Bld) [#/Vol] 1.76 10*3/uL 0.83 - 3.57 K/uL [facility] Lymphocytes/100 WBC (Bld) 37.1 % [facility] MCH (RBC) [Entitic mass] 27.8 pg 26.1 - 33.3 pg [facility] MCHC (RBC) [Mass/Vol] 32.7 g/dL 31.9 - 36.5 g/dL [facility] MCV (RBC) [Entitic vol] 85.0 fL 79.0 - 94.5 fL [facility] Monocytes (Bld) [#/Vol] 0.66 10*3/uL 0.24 - 0.93 K/uL [facility] Monocytes/100 WBC (Bld) 13.9 % [facility] Neutrophils (Bld) [#/Vol] 2.16 10*3/uL 1.57 - 6.19 K/uL [facility] Nucleated RBC/100 WBC (Bld) [Ratio] 0.0 % [facility] Platelet mean volume (Bld) [Entitic vol] 9.3 fL 8.7 - 12.3 fL [facility] Platelets (Bld) [#/Vol] 262 10*3/uL 146 - 337 K/uL [facility] RBC (Bld) [#/Vol] 4.46 10*6/uL [facility] Segmented neutrophils/100 WBC (Bld) 45.7 % [facility] WBC (Bld) [#/Vol] 4.74 10*3/uL 3.73 - 10. 10 K/uL [facility] Abs Baso Auto < Normal 0.00-0.09 [facility] Comment on above: Performed By: #### L [id number] ####[facility] (DEFAULT)[address] [place] [address] 5[address]64 Basophils/100 WBC (Bld) 0.6 % Normal [facility] Comment on above: Performed By: #### L [id number] ####[facility] (DEFAULT)[address] [place] [address] 74480 DIFF STATUS Electronic Differential Normal [facility] Comment on above: Performed By: #### L [id number] ####[facility] (DEFAULT)[address] [place] [address]29 Eosinophils (Bld) [#/Vol] 0.10 10*3/uL Normal 0.00-0.48 [facility] Comment on above: Performed By: #### L [id number] ####[facility] (DEFAULT)[address] [place] [address] Eosinophils/100 WBC (Bld) 2.1 % Normal [facility] Comment on above: Performed By: #### L [id number] ####[facility] (DEFAULT)[address] [place] [address] 18805 Hematocrit (Bld) [Volume fraction] 37.9 % Low 39.6-48.8 [facility] Comment on above: Performed By: #### L [id number] ####[facility] (DEFAULT)[address] [place] [address] 52818 Hemoglobin (Bld) [Mass/Vol] 12.4 g/dL Low 13.4-16.8 [facility] Comment on above: Performed By: #### L [id number] ####[facility] (DEFAULT)[address] [place] [address] Immature Grans % 0.6 % Normal [facility] Comment on above: Performed By: #### L [id number] ####[facility] (DEFAULT)[address] [place] [address] Immature Grans Absolute < Normal <=0.07 [facility] Comment on above: Performed By: #### L [id number] ####[facility] (DEFAULT)[address] [place] [address] Lymphocytes (Bld) [#/Vol] 1.76 10*3/uL Normal 0.83-3.57 [facility] Comment on above: Performed By: #### L [id number] ####[facility] (DEFAULT)[address] [place] [address] Lymphocytes/100 WBC (Bld) 37.1 % Normal [facility] Comment on above: Performed By: #### L [id number] ####[facility] (DEFAULT)[address] [place] [address] MCV (RBC) [Entitic vol] 85.0 fL Normal 79.0-94.5 [facility] Comment on above: Performed By: #### L [id number] ####[facility] (DEFAULT)[address] [place] [address] Mean Cell Hgb 27.8 pg Normal 26.1-33.3 [facility] Comment on above: Performed By: #### L [id number] ####[facility] (DEFAULT)[address] [place] [address] Mean Cell Hgb Conc 32.7 g/dL Normal 31.9-36.5 [facility] Comment on above: Performed By: #### L [id number] ####[facility] (DEFAULT)[address] [place] [address] Monocytes (Bld) [#/Vol] 0.66 10*3/uL Normal 0.24-0.93 [facility] Comment on above: Performed By: #### L [id number] ####[facility] (DEFAULT)[address] [place] [address] Monocytes/100 WBC (Bld) 13.9 % Normal [facility] Comment on above: Performed By: #### L [id number] ####[facility] (DEFAULT)[address] [place] [address] Nucleated RBC 0.0 /100 WBC Normal <=0.2 [facility] Comment on above: Performed By: #### L [id number] ####[facility] (DEFAULT)[address] [place] [address] Platelet mean volume (Bld) [Entitic vol] 9.3 fL Normal 8.7-12.3 [facility] Comment on above: Performed By: #### L [id number] ####[facility] (DEFAULT)[address] [place] [address] Platelets (Bld) [#/Vol] 262 10*3/uL Normal 146-337 [facility] Comment on above: Performed By: #### L [id number] ####[facility] (DEFAULT)[address] [place] [address] RBC (Bld) [#/Vol] 4.46 10*6/uL Normal 4.38-5.83 [facility] Comment on above: Performed By: #### L [id number] ####[facility] (DEFAULT)[address] [place] [address] RBC Distribution 13.4 % Normal 10.9-14.3 [facility] Comment on above: Performed By: #### L [id number] ####[facility] (DEFAULT)[address] [place] [address] Segs + Bands Auto 45.7 % Normal [facility] Comment on above: Performed By: #### L [id number] ####[facility] (DEFAULT)[address] [place] [address] Segs + Bands,Absolute Auto 2.16 K/uL Normal 1.57-6.19 [facility] Comment on above: Performed By: #### L [id number] ####[facility] (DEFAULT)[address] [place] [address] WBC (Bld) [#/Vol] 4.74 10*3/uL Normal 3.73-10.10 [facility] Comment on above: Performed By: #### L [id number] ####[facility] (DEFAULT)[address] [place] [address] 11493 CHEM 6 (LYTES, BUN CREA)on 0 08-28-2023 Anion gap [Moles/Vol] 13 mmol/L 7 - 17 mmol/L [facility] Chloride [Moles/Vol] 103 mmol/L 98 - 10 8 mmol/L [facility] CO2 [Moles/Vol] 22 mmol/L 21 - 31 mmol/L [facility] Creatinine [Mass/Vol] 1.62 mg/dL High 0.70 - 1.30 mg/dL [facility] eGFR, CKD-EPI, Male 51 Low - PINF [facility] Interpretation and review of laboratory results Abnormal [facility] Potassium [Moles/Vol] 4.3 mmol/L 3.5 - 5.0 mmol/L [facility] Sodium [Moles/Vol] 134 mmol/L Low 135 - 145 mmol/L [facility] Urea nitrogen [Mass/Vol] 22 mg/dL 7 - 25 mg/dL [facility] Urea nitrogen/Creatinine [Mass ratio] 14 mg/mg [facility] Anion gap [Moles/Vol] 13 mmol/L Normal 7-17 [facility] Comment on above: Performed By: #### C HM6 ####[facility] (DEFAULT)[address] [place] [address] Chloride [Moles/Vol] 103 mmol/L Normal 98-108 [facility] Comment on above: Performed By: #### C HM6 ####[facility] (DEFAULT)[address] [place] [address] CO2 [Moles/Vol] 22 mmol/L Normal 21-31 [facility] Comment on above: Performed By: #### C HM6 ####[facility] (DEFAULT)[address] [place] [address] Creatinine [Mass/Vol] 1.62 mg/dL High 0.70-1.30 [facility] Comment on above: Performed By: #### C HM6 ####[facility] (DEFAULT)[address] [place] [address] GFR/1.73 sq M.predicted among non-blacks MDRD (S/P/Bld) [Vol rate/Area] 51 mL/min/{1.73_m2} Low >=60 [facility] Comment on above: Result Comment: Repo rted eGFR is based on the CKD-EPI 2020 equation using creatinine, age, and sex. Performed By: #### C HM6 ####[facility] (DEFAULT)[address] [place] [address] Potassium [Moles/Vol] 4.3 mmol/L Normal 3.5-5.0 [facility] Comment on above: Performed By: #### C HM6 ####[facility] (DEFAULT)[address] [place] [address] Sodium [Moles/Vol] 134 mmol/L Low 135-145 [facility] Comment on above: Performed By: #### C HM6 ####[facility] (DEFAULT)[address] [place] [address] Urea nitrogen [Mass/Vol] 22 mg/dL Normal 7-25 [facility] Comment on above: Performed By: #### C HM6 ####[facility] (DEFAULT)[address] [place] [address] 47587 Urea nitrogen/Creatinine [Mass ratio] 14 mg/mg Normal [facility] Comment on above: Performed By: #### C HM6 ####[facility] (DEFAULT)[address] [place] [address] 9[address]84 IMMUNOCOMPROMISED RESPIRATOR Y PANELon 08-28-2023 Adenovirus - Pcr Not detected Normal Not Detected [facility] Comment on above: Order Comment: Viral transport [...] assay. Performed By: #### I CRESP ####[facility] (DEFAULT)[address] [place] [address] Bordetella Parapertussis Not detected Normal Not Detected [facility] Comment on above: Order Comment: Viral transport [...] assay. Performed By: #### I CRESP ####[facility] (DEFAULT)[address] [place] [address] 42530 Bordetella Pertussis Not detected Normal Not Detected [facility] Comment on above: Order Comment: Viral transport [...] acid assay. Performed By: #### I CRESP ####[facility] (DEFAULT)[address] [place] [address], [place] [address] Chlamydia Pneumoniae Not detected Normal Not Detected [facility] Comment on above: Order Comment: Viral transport [...] assay. Performed By: #### I CRESP ####[facility] (DEFAULT)[address] [place] [address], [place] [address] Coronavirus 229E Not detected Normal Not Detected [facility] Comment on above: Order Comment: Viral transport [...] assay. Performed By: #### I CRESP ####[facility] (DEFAULT)[address] [place] [address], [place] [address] Coronavirus Hku1 Not detected Normal Not Detected [facility] Comment on above: Order Comment: Viral transport [...] acid assay. Performed By: #### I CRESP ####[facility] (DEFAULT)[address] [place] [address], [place] [address] Coronavirus Nl63 Not detected Normal Not Detected [facility] Comment on above: Order Comment: Viral transport [...] acid assay. Performed By: #### I CRESP ####[facility] (DEFAULT)[address] [place] [address], [place] [address] Coronavirus Oc43 Not detected Normal Not Detected [facility] Comment on above: Order Comment: Viral transport [...] acid assay. Performed By: #### I CRESP ####[facility] (DEFAULT)[address] [place] [address], [place] [address] Influenza A - Pcr Not detected Normal [...] acid assay. Performed By: #### I CRESP ####[facility] (DEFAULT)[address] [place] [address] Influenza B - Pcr Not detected Normal [...] acid assay. Performed By: #### I CRESP ####[facility] (DEFAULT)[address] [place] [address], [place] [address] Metapneumovirus - Pcr Not detected Normal Not Detected [facility] Comment on above: Order Comment: Viral transport [...] acid assay. Performed By: #### I CRESP ####[facility] (DEFAULT)[address] [place] [address] Mycoplasma Pneumoniae Not detected Normal Not Detected [facility] Comment on above: Order Comment: Viral transport [...] acid assay. Performed By: #### I CRESP ####[facility] (DEFAULT)[address] [place] [address] Parainfluenza 1 - Pcr Not detected Normal Not Detected [facility] Comment on above: Order Comment: Viral transport [...] acid assay. Performed By: #### I CRESP ####[facility] (DEFAULT)[address] [place] [address] Parainfluenza 2 - Pcr Not detected Normal Not Detected [facility] Comment on above: Order Comment: Viral transport [...] acid assay. Performed By: #### I CRESP ####[facility] (DEFAULT)[address] [place] [address] Parainfluenza 3 - Pcr Not detected Normal Not Detected [facility] Comment on above: Order Comment: Viral transport [...] acid assay. Performed By: #### I CRESP ####[facility] (DEFAULT)[address] [place] [address], [place] [address] Parainfluenza 4 - Pcr Not detected Normal Not Detected [facility] Comment on above: Order Comment: Viral transport [...] acid assay. Performed By: #### I CRESP ####[facility] (DEFAULT)[address] [place] [address] Rhinovirus/Enterovir us - PCR Not detected Normal Not Detected [facility] Comment on above: Order Comment: Viral transport [...] assay. Performed By: #### I CRESP ####[facility] (DEFAULT)[address] [place] [address], [place] [address] Rsv - Pcr Not detected Normal Not Detected [facility] Comment on above: Order Comment: Viral transport [...] acid assay. Performed By: #### I CRESP ####[facility] (DEFAULT)[address] [place] [address] SARS-CoV-2 (COVID-19) RNA ESTELITA+probe Ql (Unsp spec) Not detected Normal NOT DETECTED [facility] Comment on above: Order Comment: Viral transport [...] acid assay. Performed By: #### I CRESP ####[facility] (DEFAULT)[address] [place] [address] Portable XR Chest Viewson Radiology Study observation (narrative) [facility] Respiratory virus DNA+RNA NA A+probe Nom (Unsp spec)Ordered By: Dayami Harris on 08-28-2023 Adenovirus DNA ESTELITA+probe Nom (Unsp spec) Not detected Not Detected [facility] B. parapertussis DNA ESTELITA+probe Ql (Unsp spec) Not detected Not Detected [facility] B. pertussis DNA ESTELITA+probe Ql (Unsp spec) Not detected Not Detected [facility] C. pneumoniae DNA ESTELITA+probe Ql (Unsp spec) Not detected Not Detected [facility] FLUAV RNA ESTELITA+probe Ql (Unsp spec) Not detected Not Detected [facility] FLUBV RNA ESTELITA+probe Ql (Unsp spec) Not detected Not Detected [facility] HCoV 229E RNA ESTELITA+non-probe Ql (Nph) Not detected Not Detected [facility] HCoV HKU1 RNA ESTELITA+non-probe Ql (Nph) Not detected Not Detected [facility] HCoV NL63 RNA ESTELITA+non-probe Ql (Nph) Not detected Not Detected [facility] HCoV OC43 RNA ESTELITA+non-probe Ql (Nph) Not detected Not Detected [facility] hMPV A RNA ESTELITA+probe Ql (Unsp spec) Not detected Not Detected [facility] Interpretation and review of laboratory results Normal [facility] M. pneumoniae DNA ESTELITA+probe Ql (Unsp spec) Not detected Not Detected [facility] Parainfluenza virus 1 RNA ESTELITA+probe Ql (Unsp spec) Not detected Not Detected [facility] Parainfluenza virus 2 RNA ESTELITA+probe Ql (Unsp spec) Not detected Not Detected [facility] Parainfluenza virus 3 RNA ESTELITA+probe Ql (Unsp spec) Not detected Not Detected [facility] Parainfluenza virus 4 RNA ESTELITA+probe Ql (Unsp spec) Not detected Not Detected [facility] Rhinovirus+Enterovir us RNA ESTELITA+probe Ql (Unsp spec) Not detected Not Detected [facility] RSV RNA ESTELITA+probe Ql (Unsp spec) Not detected Not Detected [facility] SARS-CoV-2 (COVID-19) RNA ESTELITA+probe Ql (Unsp spec) Not detected NOT [facility]ECTED [facility] ALBUMINon 04-28-2023 Albumin [Mass/Vol] 4.0 g/dL Normal 3.4-5.0 [facility] Comment on above: Performed By: #### C MP #### [facility] [address] [place] [address] [address] Dwight Waters ALKALINE PHOSPHAon 3 ALP [Catalytic activity/Vol] 106 U/L Normal 46-116 [facility] Comment on above: Performed By: #### F [id number] #### [facility] [address] [place] [address] Dr. Dwight Waters BILIRUBIN CONJUGATED (DIRECT )on 04-28-2023 BILI, CONJUGATED 0.3 mg/dL Critically high 0.0-0.2 [facility] Comment on above: Performed By: #### C MP #### [facility] [address] [place] [address] Dr. Dwight Waters BILIRUBIN TOTALon 04-28-2023 Bilirubin [Mass/Vol] 1.4 mg/dL Critically high 0.2-1.0 [facility] Comment on above: Performed By: #### C MP #### [facility] [address] [place] [address] Dr. Dwight Waters BUNon 04-28-2023 Urea nitrogen [Mass/Vol] 12.0 mg/dL Normal 7.0-18.0 [facility] Comment on above: Performed By: #### U RTPCR #### [facility] [address] [place] [address] Dr. Dwight Waters CALCIUMon 04-28-2023 Calcium [Mass/Vol] 9.3 mg/dL Normal 8.5-10.1 [facility] Comment on above: Performed By: #### U RTPCR #### [facility] [address] [place] [address] Dr. Dwight Waters CBC AUTO DIFFon 04-28-2023 BASO # 0.1 103/ul Normal 0.0-0.1 [facility] Comment on above: Performed By: #### C BC #### [facility] [address] [place] [address] Dr. Dwight Waters Basophils/100 WBC (Bld) 0.9 % Normal 0.2-2.0 [facility] Comment on above: Performed By: #### C BC #### [facility] [address] [place] [address] Dr. Dwight Waters EO # 0.2 103/ul Normal 0.0-0.7 [facility] Comment on above: Performed By: #### C BC #### [facility] [address] [place] [address] Dr. Dwight Waters Eosinophils/100 WBC (Bld) 3.8 % Normal 0.9-7.0 [facility] Comment on above: Performed By: #### C BC #### [facility] [address] [place] [address] Dr. Dwight Waters Erythrocyte distribution width (RBC) [Ratio] 12.5 % Normal 11.0-15.0 [facility] Comment on above: Performed By: #### C BC #### [facility] [address] [place] [address] Dr. Dwight Waters Hematocrit (Bld) [Volume fraction] 49.8 % Normal 42.0-54.0 [facility] Comment on above: Performed By: #### C BC #### [facility] [address] [place] [address] Dr. Dwight Waters Hemoglobin (Bld) [Mass/Vol] 16.4 g/dL Normal 14.0-18.0 [facility] Comment on above: Performed By: #### C BC #### [facility] [address] [place] [address] Dr. Dwight Waters IG # 0.01 10e3/ul Normal 0.00-0.03 [facility] Comment on above: Performed By: #### C BC #### [facility] [address] [place] [address] Dr. Dwight Waters IG % 0.2 % Normal 0.0-0.5 [facility] Comment on above: Performed By: #### C BC #### [facility] [address] [place] [address] Dr. Dwight Waters LYMPH # 2.1 103/ul Normal 1.2-3.8 [facility] Comment on above: Performed By: #### C BC #### [facility] [address] [place] [address] Dr. Dwight Waters Lymphocytes/100 WBC (Bld) 39.1 % Normal 20.5-60.0 [facility] Comment on above: Performed By: #### C BC #### [facility] [address] [place] [address] Dr. Dwight Waters MANUAL DIFF REQ NO Normal [facility] Comment on above: Performed By: #### C BC #### [facility] [address] [address] [address] Dwight Waters MCH (RBC) [Entitic mass] 28.6 pg Normal 25.9-34.0 [facility] Comment on above: Performed By: #### C BC #### [facility] [address] [place] [address] Dr. Dwight Waters MCHC (RBC) [Mass/Vol] 32.9 g/dL Normal 29.9-35.2 [facility] Comment on above: Performed By: #### C BC #### [facility] [address] [place] [address] Dr. Dwight Waters MCV (RBC) [Entitic vol] 86.9 fL Normal 80.0-94.0 [facility] Comment on above: Performed By: #### C BC #### [facility] [address] [place] [address] Dr. Dwight Waters MONO # 0.6 103/ul Normal 0.3-0.8 [facility] Comment on above: Performed By: #### C BC #### [facility] [address] [place] [address] Dr. Dwight Waters Monocytes/100 WBC (Bld) 10.6 % Normal 1.7-12.0 [facility] Comment on above: Performed By: #### C BC #### [facility] [address] [place] [address] Dr. Dwight Waters NEUT # 2.5 103/ul Normal 1.4-6.5 [facility] Comment on above: Performed By: #### C BC #### [facility] [address] [place] [address] Dr. Dwight Waters Neutrophils/100 WBC (Bld) 45.4 % Normal 43.0-75.0 [facility] Comment on above: Performed By: #### C BC #### [facility] [address] [place] [address] Dr. Dwight Waters Platelet mean volume (Bld) [Entitic vol] 9.3 fL Critically low 9.5-13.5 [facility] Comment on above: Performed By: #### C BC #### [facility] [address] [address] [address] Dwight Waters PLT 248 103/ul Normal 150-450 [facility] Comment on above: Performed By: #### C BC #### [facility] [address] [place] [address] Dr. Dwight Waters RBC 5.73 106/ul Normal 4.70-6.10 [facility] Comment on above: Performed By: #### C BC #### [facility] [address] [place] [address] Dr. Dwight Waters WBC 5.5 103/ul Normal 4.0-11.0 [facility] Comment on above: Performed By: #### C BC #### [facility] [address] [place] [address] Dr. Dwight Waters CHLORIDEon 04-28-2023 Chloride [Moles/Vol] 107 mmol/L Normal 98-107 [facility] Comment on above: Performed By: #### U RTPCR #### [facility] [address] [place] [address] Dr. Dwight Waters CO2on 04-28-2023 CO2 [Moles/Vol] 28.9 mmol/L Normal 21.0-32.0 [facility] Comment on above: Performed By: #### U RTPCR #### [facility] [address] [place] [address] Dr. Dwight Waters CREATININEon 04-28-2023 Creatinine [Mass/Vol] 1.17 mg/dL Normal 0.70-1.30 [facility] Comment on above: Performed By: #### U RTPCR #### [facility] [address] [place] [address] Dr. Dwight Waters EGFR-AF DOMINICAN >60 Normal >=60 [facility] Comment on above: Performed By: #### U RTPCR #### [facility] [address] [place] [address] Dr. Dwight Waters EGFR-NON AF DOMINICAN >60 Normal >=60 [facility] Comment on above: Performed By: #### U RTPCR #### [facility] [address] [place] [address] Dr. Dwight Waters GGTon 04-28-2023 Gamma glutamyl transferase [Catalytic activity/Vol] 27 U/L Normal 15-85 [facility] Comment on above: Performed By: #### U RTPCR #### [facility] [address] [place] [address] Dr. Dwight Waters GLUCOSE BLOODon 04-28-2023 Glucose [Mass/Vol] 110 mg/dL Critically high 74-106 [facility] Comment on above: Performed By: #### U RTPCR #### [facility] [address] [place] [address] Dr. Dwight Waters MAGNESIUMon 04-28-2023 Magnesium [Mass/Vol] 1.7 mg/dL Critically low 1.8-2.4 [facility] Comment on above: Performed By: #### U RTPCR #### [facility] [address] [place] [address] Dr. Dwight Waters NAon 04-28-2023 Sodium [Moles/Vol] 144 mmol/L Normal 136-145 [facility] Comment on above: Performed By: #### U RTPCR #### [facility] [address] [place] [address] Dr. Dwight Waters PHOSPHORUSon 04-28-2023 Phosphate [Mass/Vol] 3.2 mg/dL Normal 2.6-4.7 [facility] Comment on above: Performed By: #### U RTPCR #### [facility] [address] [place] [address] Dr. Dwight Waters POTASSIUMon 04-28-2023 Potassium [Moles/Vol] 4.0 mmol/L Normal 3.5-5.1 [facility] Comment on above: Performed By: #### U RTPCR #### [facility] [address] [place] [address] Dr. Dwight Waters SGOTon 04-28-2023 AST [Catalytic activity/Vol] 25 U/L Normal 15-37 [facility] Comment on above: Performed By: #### C MP #### [facility] [address] [place] [address] Dr. Dwight Waters SGPTon 04-28-2023 ALT [Catalytic activity/Vol] 40 U/L Normal 16-63 [facility] Comment on above: Performed By: #### C MP #### [facility] [address] [place] [address] Dr. Dwight Waters URINE T PROTEIN CREAT RATIOo n 04-28-2023 Protein (U) [Mass/Vol] 10.1 mg/dL Normal <=12.0 [facility] Comment on above: Performed By: #### U RTPCR #### [facility] [address] [place] [address] Dr. Dwight Waters UR PROT CREAT RAT 0.14 Normal [facility] Comment on above: Performed By: #### U RTPCR #### [facility] [address] [place] [address] Dr. Dwight Waters URINE CREAT 74.40 mg/dL Normal 20.00-300.00 [facility] Comment on above: Performed By: #### U RTPCR #### [facility] [address] [place] [address] Dr. Dwight Waters BK VIRUS PCR QUANTon 023 BKV DNA QUANT PCR PLASMA Negative Normal Negative [facility] Comment on above: Result Comment: No B K DNA detected. . The linear range of the assay is 22 - 100,000,000 IU/mL. Performed By: #### B KVIRUS #### [facility] [address] [place] [address] Dr. Dwight Waters Log10 BKV DNA Plasma Normal [facility] Comment on above: Performed By: #### B KVIRUS #### [facility] [address] [place] [address] Dr. Dwight Waters FK506 (TACROLIMUS) WHOLE BLO ODon 03-04-2023 Tacrolimus (FK506), Blood 5.9 ng/mL Normal 2.0-20.0 [facility] Comment on above: Result Comment: Trou gh (immediately following transplant) 15.0 . Trough (steady state, 2 weeks or more after transplant): 3.0 - 8.0 . Performed by LC-MS/MS technology. Performed By: #### C MP #### [facility] [address] [place] [address] Dr. Dwight Waters ALBUMINon 03-02-2023 Albumin [Mass/Vol] 3.9 g/dL Normal 3.4-5.0 [facility] Comment on above: Performed By: #### U RTPCR #### [facility] [address] [place] [address] Dr. Dwight Waters ALKALINE PHOSPHAon ALP [Catalytic activity/Vol] 105 U/L Normal 46-116 [facility] Comment on above: Performed By: #### U RTPCR #### [facility] [address] [place] [address] Dr. Dwight Waters BILIRUBIN CONJUGATED (DIRECT )on 03-02-2023 BILI, CONJUGATED 0.2 mg/dL Normal 0.0-0.2 [facility] Comment on above: Performed By: #### U RTPCR #### [facility] [address] [place] [address] Dr. Dwight Waters BILIRUBIN TOTALon 03-02-2023 Bilirubin [Mass/Vol] 0.9 mg/dL Normal 0.2-1.0 [facility] Comment on above: Performed By: #### U RTPCR #### [facility] [address] [place] [address] Dr. Dwight Waters CBC AUTO DIFFon 03-02-2023 BASO # 0.1 103/ul Normal 0.0-0.1 [facility] Comment on above: Performed By: #### C BC #### [facility] [address] [place] [address] Dr. Dwight Waters Basophils/100 WBC (Bld) 0.9 % Normal 0.2-2.0 [facility] Comment on above: Performed By: #### C BC #### [facility] [address] [place] [address] Dr. Dwight Waters EO # 0.2 103/ul Normal 0.0-0.7 [facility] Comment on above: Performed By: #### C BC #### [facility] [address] [place] [address] Dr. Dwight Waters Eosinophils/100 WBC (Bld) 3.5 % Normal 0.9-7.0 [facility] Comment on above: Performed By: #### C BC #### [facility] [address] [place] [address] Dr. Dwight Waters Erythrocyte distribution width (RBC) [Ratio] 12.7 % Normal 11.0-15.0 [facility] Comment on above: Performed By: #### C BC #### [facility] [address] [place] [address] Dr. Dwight Waters Hematocrit (Bld) [Volume fraction] 48.2 % Normal 42.0-54.0 [facility] Comment on above: Performed By: #### C BC #### [facility] [address] [place] [address] Dr. Dwight Waters Hemoglobin (Bld) [Mass/Vol] 15.9 g/dL Normal 14.0-18.0 [facility] Comment on above: Performed By: #### C BC #### [facility] [address] [place] [address] Dr. Dwight Waters IG # 0.01 10e3/ul Normal 0.00-0.03 [facility] Comment on above: Performed By: #### C BC #### [facility] [address] [place] [address] Dr. Dwight Waters IG % 0.2 % Normal 0.0-0.5 [facility] Comment on above: Performed By: #### C BC #### [facility] [address] [place] [address] Dr. Dwight Waters LYMPH # 2.1 103/ul Normal 1.2-3.8 [facility] Comment on above: Performed By: #### C BC #### [facility] [address] [place] [address] Dr. Dwight Waters Lymphocytes/100 WBC (Bld) 37.4 % Normal 20.5-60.0 [facility] Comment on above: Performed By: #### C BC #### [facility] [address] [place] [address] Dr. Dwight Waters MANUAL DIFF REQ NO Normal [facility] Comment on above: Performed By: #### C BC #### [facility] [address] [place] [address] Dr. Dwight Waters MCH (RBC) [Entitic mass] 28.3 pg Normal 25.9-34.0 [facility] Comment on above: Performed By: #### C BC #### [facility] [address] [place] [address] Dr. Dwight Waters MCHC (RBC) [Mass/Vol] 33.0 g/dL Normal 29.9-35.2 [facility] Comment on above: Performed By: #### C BC #### [facility] [address] [place] [address] Dr. Dwight Waters MCV (RBC) [Entitic vol] 85.8 fL Normal 80.0-94.0 [facility] Comment on above: Performed By: #### C BC #### [facility] [address] [place] [address] Dr. Dwight Waters MONO # 0.6 103/ul Normal 0.3-0.8 [facility] Comment on above: Performed By: #### C BC #### [facility] [address] [place] [address] Dr. Dwight Waters Monocytes/100 WBC (Bld) 10.2 % Normal 1.7-12.0 [facility] Comment on above: Performed By: #### C BC #### [facility] [address] [place] [address] Dr. Dwight Waters NEUT # 2.7 103/ul Normal 1.4-6.5 [facility] Comment on above: Performed By: #### C BC #### [facility] [address] [place] [address] Dr. Dwight Waters Neutrophils/100 WBC (Bld) 47.8 % Normal 43.0-75.0 [facility] Comment on above: Performed By: #### C BC #### [facility] [address] [place] [address] Dr. Dwight Waters Platelet mean volume (Bld) [Entitic vol] 9.3 fL Critically low 9.5-13.5 [facility] Comment on above: Performed By: #### C BC #### [facility] [address] [place] [address] Dr. Dwight Waters PLT 241 103/ul Normal 150-450 [facility] Comment on above: Performed By: #### C BC #### [facility] [address] [place] [address] Dr. Dwight Waters RBC 5.62 106/ul Normal 4.70-6.10 [facility] Comment on above: Performed By: #### C BC #### [facility] [address] [place] [address] Dr. Dwight Waters WBC 5.7 103/ul Normal 4.0-11.0 [facility] Comment on above: Performed By: #### C BC #### [facility] [address] [place] [address] Dr. Dwight Waters GGTon 03-02-2023 Gamma glutamyl transferase [Catalytic activity/Vol] 25 U/L Normal 15-85 [facility] Comment on above: Performed By: #### U RTPCR #### [facility] [address] [place] [address] Dr. Dwight Waters MAGNESIUMon 03-02-2023 Magnesium [Mass/Vol] 1.6 mg/dL Critically low 1.8-2.4 [facility] Comment on above: Performed By: #### U RTPCR #### [facility] [address] [place] [address] Dr. Dwight Waters PHOSPHORUSon 03-02-2023 Phosphate [Mass/Vol] 3.6 mg/dL Normal 2.6-4.7 [facility] Comment on above: Performed By: #### U RTPCR #### [facility] [address] [place] [address] Dr. Dwight Waters PROF CHEM 8 (BAS METB)on Anion gap [Moles/Vol] 9.4 mmol/L Normal [facility] Comment on above: Performed By: #### U RTPCR #### [facility] [address] [address] [address] Dwight Waters Calcium [Mass/Vol] 9.3 mg/dL Normal 8.5-10.1 [facility] Comment on above: Performed By: #### U RTPCR #### [facility] [address] [address] [address] Dwight Waters Chloride [Moles/Vol] 108 mmol/L Critically high 98-107 [facility] Comment on above: Performed By: #### U RTPCR #### [facility] [address] [address] [address] Dwight Waters CO2 [Moles/Vol] 27.2 mmol/L Normal 21.0-32.0 [facility] Comment on above: Performed By: #### U RTPCR #### [facility] [address] [place] [address] Dr. Dwight Waters Creatinine [Mass/Vol] 1.12 mg/dL Normal 0.70-1.30 [facility] Comment on above: Performed By: #### U RTPCR #### [facility] [address] [address] [address] Dwight Waters EGFR-AF DOMINICAN >60 Normal >=60 [facility] Comment on above: Performed By: #### U RTPCR #### [facility] [address] [address] [address] Dwight Waters EGFR-NON AF DOMINICAN >60 Normal >=60 [facility] Comment on above: Performed By: #### U RTPCR #### [facility] [address] [address] [address] Dwight Waters Glucose [Mass/Vol] 113 mg/dL Critically high 74-106 [facility] Comment on above: Performed By: #### U RTPCR #### [facility] [address] [address] [address] Dwight Waters Potassium [Moles/Vol] 3.6 mmol/L Normal 3.5-5.1 [facility] Comment on above: Performed By: #### U RTPCR #### [facility] [address] [place] [address] Dr. Dwight Waters Sodium [Moles/Vol] 141 mmol/L Normal 136-145 [facility] Comment on above: Performed By: #### U RTPCR #### [facility] [address] [place] [address] Dr. Dwight Waters Urea nitrogen [Mass/Vol] 14.0 mg/dL Normal 7.0-18.0 [facility] Comment on above: Performed By: #### U RTPCR #### [facility] [address] [place] [address] Dr. Dwight Waters Urea nitrogen/Creatinine [Mass ratio] 12.5 mg/mg Normal [facility] Comment on above: Performed By: #### U RTPCR #### [facility] [address] [place] [address] Dr. Dwight Waters SGOTon 03-02-2023 AST [Catalytic activity/Vol] 20 U/L Normal 15-37 [facility] Comment on above: Performed By: #### U RTPCR #### [facility] [address] [place] [address] Dr. Dwight Waters SGPTon 03-02-2023 ALT [Catalytic activity/Vol] 30 U/L Normal 16-63 [facility] Comment on above: Performed By: #### U RTPCR #### [facility] [address] [place] [address] Dr. Dwight Waters URINE T PROTEIN CREAT RATIOo n 03-02-2023 Protein (U) [Mass/Vol] 10.3 mg/dL Normal <=12.0 [facility] Comment on above: Performed By: #### U RTPCR #### [facility] [address] [place] [address] Dr. Dwight Waters UR PROT CREAT RAT 0.15 Normal [facility] Comment on above: Performed By: #### U RTPCR #### [facility] [address] [place] [address] Dr. Dwight Waters URINE CREAT 68.96 mg/dL Normal 20.00-300.00 [facility] Comment on above: Performed By: #### U RTPCR #### [facility] [address] [place] [address] Dr. Dwight Waters BK VIRUS PCR QUANTon 023 BKV DNA QUANT PCR PLASMA Negative Normal Negative [facility] Comment on above: Result Comment: No B K DNA detected. . The linear range of the assay is 22 - 100,000,000 IU/mL. Performed By: #### C MP #### [facility] [address] [place] [address] Dr. Dwight Waters Log10 BKV DNA Plasma Normal [facility] Comment on above: Performed By: #### C MP #### [facility] [address] [place] [address] Dr. Dwight Waters FK506 (TACROLIMUS) WHOLE BLO ODon 12-31-2022 Tacrolimus (FK506), Blood 5.6 ng/mL Normal 2.0-20.0 [facility] Comment on above: Result Comment: Trou gh (immediately following transplant) 15.0 . Trough (steady state, 2 weeks or more after transplant): 3.0 - 8.0 . Performed by LC-MS/MS technology. Performed By: #### C MP #### [facility] [address] [place] [address] Dr. Dwight Waters ALKALINE PHOSPHAon ALP [Catalytic activity/Vol] 96 U/L Normal 46-116 [facility] Comment on above: Performed By: #### C BC #### [facility] [address] [place] [address] Dr. Dwight Waters BILIRUBIN CONJUGATED (DIRECT )on 12-29-2022 BILI, CONJUGATED 0.3 mg/dL Critically high 0.0-0.2 [facility] Comment on above: Performed By: #### C BC #### [facility] [address] [place] [address] Dr. Dwight Waters BILIRUBIN TOTALon 12-29-2022 Bilirubin [Mass/Vol] 1.1 mg/dL Critically high 0.2-1.0 [facility] Comment on above: Performed By: #### C BC #### [facility] [address] [place] [address] Dr. Dwight Waters CBC AUTO DIFFon 12-29-2022 BASO # 0.1 103/ul Normal 0.0-0.1 [facility] Comment on above: Performed By: #### C MP #### [facility] [address] [place] [address] Dr. Dwight Waters Basophils/100 WBC (Bld) 0.8 % Normal 0.2-2.0 [facility] Comment on above: Performed By: #### C MP #### [facility] [address] [place] [address] Dr. Dwight Waters EO # 0.2 103/ul Normal 0.0-0.7 [facility] Comment on above: Performed By: #### C MP #### [facility] [address] [place] [address] Dr. Dwight Waters Eosinophils/100 WBC (Bld) 3.0 % Normal 0.9-7.0 [facility] Comment on above: Performed By: #### C MP #### [facility] [address] [place] [address] Dr. Dwight Waters Erythrocyte distribution width (RBC) [Ratio] 12.9 % Normal 11.0-15.0 [facility] Comment on above: Performed By: #### C MP #### [facility] [address] [place] [address] Dr. Dwight Waters Hematocrit (Bld) [Volume fraction] 46.9 % Normal 42.0-54.0 [facility] Comment on above: Performed By: #### C MP #### [facility] [address] [place] [address] Dr. Dwight Waters Hemoglobin (Bld) [Mass/Vol] 16.1 g/dL Normal 14.0-18.0 [facility] Comment on above: Performed By: #### C MP #### [facility] [address] [place] [address] Dr. Dwight Waters IG # 0.01 10e3/ul Normal 0.00-0.03 [facility] Comment on above: Performed By: #### C MP #### [facility] [address] [place] [address] Dr. Dwight Waters IG % 0.2 % Normal 0.0-0.5 [facility] Comment on above: Performed By: #### C MP #### [facility] [address] [place] [address] Dr. Dwight Waters LYMPH # 1.8 103/ul Normal 1.2-3.8 [facility] Comment on above: Performed By: #### C MP #### [facility] [address] [place] [address] Dr. Dwight Waters Lymphocytes/100 WBC (Bld) 27.9 % Normal 20.5-60.0 [facility] Comment on above: Performed By: #### C MP #### [facility] [address] [place] [address] Dr. Dwight Waters MANUAL DIFF REQ NO Normal [facility] Comment on above: Performed By: #### C MP #### [facility] [address] [place] [address] Dr. Dwight Waters MCH (RBC) [Entitic mass] 28.5 pg Normal 25.9-34.0 [facility] Comment on above: Performed By: #### C MP #### [facility] [address] [place] [address] Dr. Dwight Waters MCHC (RBC) [Mass/Vol] 34.3 g/dL Normal 29.9-35.2 [facility] Comment on above: Performed By: #### C MP #### [facility] [address] [place] [address] Dr. Dwight Waters MCV (RBC) [Entitic vol] 83.2 fL Normal 80.0-94.0 [facility] Comment on above: Performed By: #### C MP #### [facility] [address] [place] [address] Dr. Dwight Waters MONO # 0.5 103/ul Normal 0.3-0.8 [facility] Comment on above: Performed By: #### C MP #### [facility] [address] [place] [address] Dr. Dwight Waters Monocytes/100 WBC (Bld) 8.1 % Normal 1.7-12.0 [facility] Comment on above: Performed By: #### C MP #### [facility] [address] [place] [address] Dr. Dwight Waters NEUT # 3.8 103/ul Normal 1.4-6.5 [facility] Comment on above: Performed By: #### C MP #### [facility] [address] [place] [address] Dr. Dwight Waters Neutrophils/100 WBC (Bld) 60.0 % Normal 43.0-75.0 [facility] Comment on above: Performed By: #### C MP #### [facility] [address] [place] [address] Dr. Dwight Waters Platelet mean volume (Bld) [Entitic vol] 9.2 fL Critically low 9.5-13.5 [facility] Comment on above: Performed By: #### C MP #### [facility] [address] [place] [address] Dr. Dwight Waters PLT 225 103/ul Normal 150-450 [facility] Comment on above: Performed By: #### C MP #### [facility] [address] [place] [address] Dr. Dwight Waters RBC 5.64 106/ul Normal 4.70-6.10 [facility] Comment on above: Performed By: #### C MP #### [facility] [address] [place] [address] Dr. Dwight Waters WBC 6.3 103/ul Normal 4.0-11.0 [facility] Comment on above: Performed By: #### C MP #### [facility] [address] [place] [address] Dr. Dwight Waters GGTon 12-29-2022 Gamma glutamyl transferase [Catalytic activity/Vol] 24 U/L Normal 15-85 [facility] Comment on above: Performed By: #### C MP #### [facility] [address] [place] [address] Dr. Dwight Waters LIPID PROFILEon 12-29-2022 CHOL-HDL RATIO NORM SEE BELOW Normal [facility] Comment on above: Result Comment: 3.3 - 4.4 LOW RISK 4.4 - 7.1 AVERAGE RISK 7.1 - 11.0 MODERATE RISK >11.0 HIGH RISK Performed By: #### U RTPCR #### [facility] [address] [address] [address] Dwight Waters Cholesterol [Mass/Vol] 87 mg/dL Normal <=200 [facility] Comment on above: Performed By: #### U RTPCR #### [facility] [address] [address] [address] Dwight Waters Cholesterol in HDL [Mass/Vol] 44 mg/dL Normal 40-60 [facility] Comment on above: Performed By: #### U RTPCR #### [facility] [address] [address] [address] Dwight Waters Cholesterol in LDL [Mass/Vol] 33.0 mg/dL Normal [facility] Comment on above: Performed By: #### U RTPCR #### [facility] [address] [address] [address] Dwight Waters Cholesterol.total/Ch olesterol in HDL [Mass ratio] 2.0 {ratio} Normal [facility] Comment on above: Performed By: #### U RTPCR #### [facility] [address] [address] [address] Dwight Waters HDL NORMAL > or = 60 mg/dl - LO W CARDIOVASCULAR RISK <40 mg/dl - HIGH CARDIOVASCULAR RISK Normal [facility] Comment on above: Performed By: #### U RTPCR #### [facility] [address] [address] [address] Dwight Waters LDL CALC NORMAL SEE BELOW Normal [facility] Comment on above: Result Comment: <100 mg/dl OPTIMAL 100 - 129 mg/dl NEAR OR ABOVE OPTIMAL 130 - 159 mg/dl BORDERLINE HIGH 160 - 189 mg/dl HIGH >190 mg/dl VERY HIGH Performed By: #### U RTPCR #### [facility] [address] [address] [address] Dwight Waters Triglyceride [Mass/Vol] 50 mg/dL Normal <=150 [facility] Comment on above: Performed By: #### U RTPCR #### [facility] [address] [place] [address] Dr. Dwight Waters VLDL CALC 10.0 mg/dL Normal [facility] Comment on above: Performed By: #### U RTPCR #### [facility] [address] [place] [address] Dr. Dwight Waters MAGNESIUMon 12-29-2022 Magnesium [Mass/Vol] 1.6 mg/dL Critically low 1.8-2.4 [facility] Comment on above: Performed By: #### C BC #### [facility] [address] [place] [address] Dr. Dwight Waters RENAL FUNCTION PANELon 12-29 Albumin [Mass/Vol] 3.9 g/dL Normal 3.4-5.0 [facility] Comment on above: Performed By: #### C BC #### [facility] [address] [place] [address] Dr. Dwight Waters Calcium [Mass/Vol] 9.2 mg/dL Normal 8.5-10.1 [facility] Comment on above: Performed By: #### C BC #### [facility] [address] [place] [address] Dr. Dwight Waters Chloride [Moles/Vol] 109 mmol/L Critically high 98-107 [facility] Comment on above: Performed By: #### C BC #### [facility] [address] [place] [address] Dr. Dwight Waters CO2 [Moles/Vol] 27.0 mmol/L Normal 21.0-32.0 [facility] Comment on above: Performed By: #### C BC #### [facility] [address] [place] [address] Dr. Dwight Waters Creatinine [Mass/Vol] 1.02 mg/dL Normal 0.70-1.30 [facility] Comment on above: Performed By: #### C BC #### [facility] [address] [place] [address] Dr. Dwight Waters EGFR-AF DOMINICAN >60 Normal >=60 [facility] Comment on above: Performed By: #### C BC #### [facility] [address] [place] [address] Dr. Dwight Waters EGFR-NON AF DOMINICAN >60 Normal >=60 [facility] Comment on above: Performed By: #### C BC #### [facility] [address] [address] [address] Dwight Waters Glucose [Mass/Vol] 117 mg/dL Critically high 74-106 [facility] Comment on above: Performed By: #### C BC #### [facility] [address] [place] [address] Dr. Dwight Waters Phosphate [Mass/Vol] 3.2 mg/dL Normal 2.6-4.7 [facility] Comment on above: Performed By: #### C BC #### [facility] [address] [place] [address] Dr. Dwight Waters Potassium [Moles/Vol] 4.1 mmol/L Normal 3.5-5.1 [facility] Comment on above: Performed By: #### C BC #### [facility] [address] [place] [address] Dr. Dwight Waters Sodium [Moles/Vol] 144 mmol/L Normal 136-145 [facility] Comment on above: Performed By: #### C BC #### [facility] [address] [place] [address] Dr. Dwight Waters Urea nitrogen [Mass/Vol] 13.0 mg/dL Normal 7.0-18.0 [facility] Comment on above: Performed By: #### C BC #### [facility] [address] [place] [address] Dr. Dwight Waters SGLashondan 12-29-2022 AST [Catalytic activity/Vol] 21 U/L Normal 15-37 [facility] Comment on above: Performed By: #### C BC #### [facility] [address] [place] [address] Dr. Dwight OLVERAPTon 12-29-2022 ALT [Catalytic activity/Vol] 32 U/L Normal 16-63 [facility] Comment on above: Performed By: #### C BC #### [facility] [address] [place] [address] Dr. Dwight Waters URINE T PROTEIN CREAT RATIOo n 12-29-2022 Protein (U) [Mass/Vol] 14.3 mg/dL Critically high <=12.0 [facility] Comment on above: Performed By: #### U RTPCR #### [facility] [address] [place] [address] Dr. Dwight Waters UR PROT CREAT RAT 0.17 Normal [facility] Comment on above: Performed By: #### U RTPCR #### [facility] [address] [place] [address] Dr. Dwight Waters URINE CREAT 86.58 mg/dL Normal 20.00-300.00 [facility] Comment on above: Performed By: #### U RTPCR #### [facility] [address] [place] [address] Dr. Dwight Waters FK506 (TACROLIMUS) WHOLE BLO ODon 11-06-2022 Tacrolimus (FK506), Blood 4.9 ng/mL Normal 2.0-20.0 [facility] Comment on above: Result Comment: Trou gh (immediately following transplant) 15.0 . Trough (steady state, 2 weeks or more after transplant): 3.0 - 8.0 . Performed by LC-MS/MS technology. Performed By: #### U RTPCR #### [facility] [address] [place] [address] Dr. Dwight Waters ALKALINE PHOSPHAon ALP [Catalytic activity/Vol] 86 U/L Normal 46-116 [facility] Comment on above: Performed By: #### U RTPCR #### [facility] [address] [place] [address] Dr. Dwight Waters BILIRUBIN CONJUGATED (DIRECT )on 11-04-2022 BILI, CONJUGATED 0.2 mg/dL Normal 0.0-0.2 [facility] Comment on above: Performed By: #### U RTPCR #### [facility] [address] [place] [address] Dr. Dwight Waters BILIRUBIN TOTALon 11-04-2022 Bilirubin [Mass/Vol] 0.8 mg/dL Normal 0.2-1.0 [facility] Comment on above: Performed By: #### U RTPCR #### [facility] [address] [place] [address] Dr. Dwight Waters CBC AUTO DIFFon 11-04-2022 BASO # 0.1 103/ul Normal 0.0-0.1 [facility] Comment on above: Performed By: #### U RTPCR #### [facility] [address] [place] [address] Dr. Dwight Waters Basophils/100 WBC (Bld) 0.9 % Normal 0.2-2.0 [facility] Comment on above: Performed By: #### U RTPCR #### [facility] [address] [place] [address] Dr. Dwight Waters EO # 0.2 103/ul Normal 0.0-0.7 [facility] Comment on above: Performed By: #### U RTPCR #### [facility] [address] [place] [address] Dr. Dwight Waters Eosinophils/100 WBC (Bld) 3.7 % Normal 0.9-7.0 [facility] Comment on above: Performed By: #### U RTPCR #### [facility] [address] [place] [address] Dr. Dwight Waters Erythrocyte distribution width (RBC) [Ratio] 12.9 % Normal 11.0-15.0 [facility] Comment on above: Performed By: #### U RTPCR #### [facility] [address] [place] [address] Dr. Dwight Waters Hematocrit (Bld) [Volume fraction] 48.3 % Normal 42.0-54.0 [facility] Comment on above: Performed By: #### U RTPCR #### [facility] [address] [place] [address] Dr. Dwight Waters Hemoglobin (Bld) [Mass/Vol] 15.6 g/dL Normal 14.0-18.0 [facility] Comment on above: Performed By: #### U RTPCR #### [facility] [address] [place] [address] Dr. Dwight Waters IG # 0.01 10e3/ul Normal 0.00-0.03 [facility] Comment on above: Performed By: #### U RTPCR #### [facility] [address] [place] [address] Dr. Dwight Waters IG % 0.2 % Normal 0.0-0.5 [facility] Comment on above: Performed By: #### U RTPCR #### [facility] [address] [place] [address] Dr. Dwight Waters LYMPH # 1.9 103/ul Normal 1.2-3.8 [facility] Comment on above: Performed By: #### U RTPCR #### [facility] [address] [place] [address] Dr. Dwight Waters Lymphocytes/100 WBC (Bld) 33.0 % Normal 20.5-60.0 [facility] Comment on above: Performed By: #### U RTPCR #### [facility] [address] [place] [address] Dr. Dwight Waters MANUAL DIFF REQ NO Normal [facility] Comment on above: Performed By: #### U RTPCR #### [facility] [address] [place] [address] Dr. Dwight Waters MCH (RBC) [Entitic mass] 27.6 pg Normal 25.9-34.0 [facility] Comment on above: Performed By: #### U RTPCR #### [facility] [address] [place] [address] Dr. Dwight Waters MCHC (RBC) [Mass/Vol] 32.3 g/dL Normal 29.9-35.2 [facility] Comment on above: Performed By: #### U RTPCR #### [facility] [address] [place] [address] Dr. Dwight Waters MCV (RBC) [Entitic vol] 85.5 fL Normal 80.0-94.0 [facility] Comment on above: Performed By: #### U RTPCR #### [facility] [address] [address] [address] Dwight Waters MONO # 0.5 103/ul Normal 0.3-0.8 [facility] Comment on above: Performed By: #### U RTPCR #### [facility] [address] [address] [address] Dwight Waters Monocytes/100 WBC (Bld) 8.8 % Normal 1.7-12.0 [facility] Comment on above: Performed By: #### U RTPCR #### [facility] [address] [place] [address] Dr. Dwight Waters NEUT # 3.1 103/ul Normal 1.4-6.5 [facility] Comment on above: Performed By: #### U RTPCR #### [facility] [address] [place] [address] Dr. Dwight Waters Neutrophils/100 WBC (Bld) 53.4 % Normal 43.0-75.0 [facility] Comment on above: Performed By: #### U RTPCR #### [facility] [address] [place] [address] Dr. Dwight Waters Platelet mean volume (Bld) [Entitic vol] 9.2 fL Critically low 9.5-13.5 [facility] Comment on above: Performed By: #### U RTPCR #### [facility] [address] [place] [address] Dr. Dwight Waters PLT 255 103/ul Normal 150-450 [facility] Comment on above: Performed By: #### U RTPCR #### [facility] [address] [place] [address] Dr. Dwight Waters RBC 5.65 106/ul Normal 4.70-6.10 [facility] Comment on above: Performed By: #### U RTPCR #### [facility] [address] [place] [address] Dr. Dwight Waters WBC 5.7 103/ul Normal 4.0-11.0 [facility] Comment on above: Performed By: #### U RTPCR #### [facility] [address] [place] [address] Dr. Dwight Waters GGTon 11-04-2022 Gamma glutamyl transferase [Catalytic activity/Vol] 22 U/L Normal 15-85 [facility] Comment on above: Performed By: #### U RTPCR #### [facility] [address] [place] [address] Dr. Dwight Waters MAGNESIUMon 11-04-2022 Magnesium [Mass/Vol] 1.8 mg/dL Normal 1.8-2.4 [facility] Comment on above: Performed By: #### U RTPCR #### [facility] [address] [place] [address] Dr. Dwight Waters RENAL FUNCTION PANELon 11-04 Albumin [Mass/Vol] 3.8 g/dL Normal 3.4-5.0 [facility] Comment on above: Performed By: #### U RTPCR #### [facility] [address] [place] [address] Dr. Dwight Waters Calcium [Mass/Vol] 9.3 mg/dL Normal 8.5-10.1 [facility] Comment on above: Performed By: #### U RTPCR #### [facility] [address] [place] [address] Dr. Dwight Waters Chloride [Moles/Vol] 107 mmol/L Normal 98-107 [facility] Comment on above: Performed By: #### U RTPCR #### [facility] [address] [place] [address] Dr. Dwight Waters CO2 [Moles/Vol] 29.2 mmol/L Normal 21.0-32.0 [facility] Comment on above: Performed By: #### U RTPCR #### [facility] [address] [place] [address] Dr. Dwight Waters Creatinine [Mass/Vol] 1.07 mg/dL Normal 0.70-1.30 [facility] Comment on above: Performed By: #### U RTPCR #### [facility] [address] [place] [address] Dr. Dwight Waters EGFR-AF DOMINICAN >60 Normal >=60 [facility] Comment on above: Performed By: #### U RTPCR #### [facility] [address] [address] [address] Dwight Waters EGFR-NON AF DOMINICAN >60 Normal >=60 [facility] Comment on above: Performed By: #### U RTPCR #### [facility] [address] [address] [address] Dwight Waters Glucose [Mass/Vol] 106 mg/dL Normal 74-106 [facility] Comment on above: Performed By: #### U RTPCR #### [facility] [address] [address] [address] Dwight Waters Phosphate [Mass/Vol] 2.8 mg/dL Normal 2.6-4.7 [facility] Comment on above: Performed By: #### U RTPCR #### [facility] [address] [place] [address] Dr. Dwight Waters Potassium [Moles/Vol] 4.1 mmol/L Normal 3.5-5.1 [facility] Comment on above: Performed By: #### U RTPCR #### [facility] [address] [place] [address] Dr. Dwight Waters Sodium [Moles/Vol] 143 mmol/L Normal 136-145 [facility] Comment on above: Performed By: #### U RTPCR #### [facility] [address] [place] [address] Dr. Dwight Waters Urea nitrogen [Mass/Vol] 12.0 mg/dL Normal 7.0-18.0 [facility] Comment on above: Performed By: #### U RTPCR #### [facility] [address] [place] [address] Dr. Dwight Waters SGOTon 11-04-2022 AST [Catalytic activity/Vol] 19 U/L Normal 15-37 [facility] Comment on above: Performed By: #### U RTPCR #### [facility] [address] [place] [address] Dr. Dwight Waters SGPTon 11-04-2022 ALT [Catalytic activity/Vol] 28 U/L Normal 16-63 [facility] Comment on above: Performed By: #### U RTPCR #### [facility] [address] [place] [address] Dr. Dwight Waters URINE T PROTEIN CREAT RATIOo n 11-04-2022 Protein (U) [Mass/Vol] 10.7 mg/dL Normal <=12.0 [facility] Comment on above: Performed By: #### U RTPCR #### [facility] [address] [place] [address] Dr. Dwight Waters UR PROT CREAT RAT 0.13 Normal [facility] Comment on above: Performed By: #### U RTPCR #### [facility] [address] [place] [address] Dr. Dwight Waters URINE CREAT 84.50 mg/dL Normal 20.00-300.00 [facility] Comment on above: Performed By: #### U RTPCR #### [facility] [address] [place] [address] Dr. Dwight Waters FK506 (TACROLIMUS) WHOLE BLO ODon 09-18-2022 Tacrolimus (FK506), Blood 4.6 ng/mL Normal 2.0-20.0 [facility] Comment on above: Result Comment: Trou gh (immediately following transplant) 15.0 . Trough (steady state, 2 weeks or more after transplant): 3.0 - 8.0 . Performed by LC-MS/MS technology. Performed By: #### U RTPCR #### [facility] [address] [place] [address] Dr. Dwight Waters BK VIRUS PCR QUANTon 022 BKV DNA QUANT PCR PLASMA Negative Normal Negative [facility] Comment on above: Result Comment: No B K DNA detected. . The linear range of the assay is 22 - 100,000,000 IU/mL. Performed By: #### U RTPCR #### [facility] [address] [place] [address] Dr. Dwight Waters Log10 BKV DNA Plasma Normal [facility] Comment on above: Performed By: #### U RTPCR #### [facility] [address] [place] [address] Dr. Dwight Waters ALKALINE PHOSPHAon ALP [Catalytic activity/Vol] 92 U/L Normal 46-116 [facility] Comment on above: Performed By: #### U RTPCR #### [facility] [address] [place] [address] Dr. Dwight Waters BILIRUBIN CONJUGATED (DIRECT )on 09-15-2022 BILI, CONJUGATED 0.3 mg/dL Critically high 0.0-0.2 [facility] Comment on above: Performed By: #### U RTPCR #### [facility] [address] [place] [address] Dr. Dwight Waters BILIRUBIN TOTALon 09-15-2022 Bilirubin [Mass/Vol] 1.1 mg/dL Critically high 0.2-1.0 [facility] Comment on above: Performed By: #### U RTPCR #### [facility] [address] [place] [address] Dr. Dwight Waters CBC AUTO DIFFon 09-15-2022 BASO # 0.1 103/ul Normal 0.0-0.1 [facility] Comment on above: Performed By: #### C BC #### [facility] [address] [place] [address] Dr. Dwight Waters Basophils/100 WBC (Bld) 0.8 % Normal 0.2-2.0 [facility] Comment on above: Performed By: #### C BC #### [facility] [address] [place] [address] Dr. Dwight Waters EO # 0.2 103/ul Normal 0.0-0.7 [facility] Comment on above: Performed By: #### C BC #### [facility] [address] [place] [address] Dr. Dwight Waters Eosinophils/100 WBC (Bld) 3.5 % Normal 0.9-7.0 [facility] Comment on above: Performed By: #### C BC #### [facility] [address] [place] [address] Dr. Dwight Waters Erythrocyte distribution width (RBC) [Ratio] 13.0 % Normal 11.0-15.0 [facility] Comment on above: Performed By: #### C BC #### [facility] [address] [place] [address] Dr. Dwight Waters Hematocrit (Bld) [Volume fraction] 50.0 % Normal 42.0-54.0 [facility] Comment on above: Performed By: #### C BC #### [facility] [address] [place] [address] Dr. Dwight Waters Hemoglobin (Bld) [Mass/Vol] 16.0 g/dL Normal 14.0-18.0 [facility] Comment on above: Performed By: #### C BC #### [facility] [address] [place] [address] Dr. Dwight Waters IG # 0.02 10e3/ul Normal 0.00-0.03 [facility] Comment on above: Performed By: #### C BC #### [facility] [address] [place] [address] Dr. Dwight Waters IG % 0.3 % Normal 0.0-0.5 [facility] Comment on above: Performed By: #### C BC #### [facility] [address] [place] [address] Dr. Dwight Waters LYMPH # 1.8 103/ul Normal 1.2-3.8 [facility] Comment on above: Performed By: #### C BC #### [facility] [address] [place] [address] Dr. Dwight Waters Lymphocytes/100 WBC (Bld) 26.5 % Normal 20.5-60.0 [facility] Comment on above: Performed By: #### C BC #### [facility] [address] [place] [address] Dr. Dwight Waters MANUAL DIFF REQ NO Normal [facility] Comment on above: Performed By: #### C BC #### [facility] [address] [place] [address] Dr. Dwight Waters MCH (RBC) [Entitic mass] 28.1 pg Normal 25.9-34.0 [facility] Comment on above: Performed By: #### C BC #### [facility] [address] [place] [address] Dr. Dwight Waters MCHC (RBC) [Mass/Vol] 32.0 g/dL Normal 29.9-35.2 [facility] Comment on above: Performed By: #### C BC #### [facility] [address] [place] [address] Dr. Dwight Waters MCV (RBC) [Entitic vol] 87.9 fL Normal 80.0-94.0 [facility] Comment on above: Performed By: #### C BC #### [facility] [address] [place] [address] Dr. Dwight Waters MONO # 0.5 103/ul Normal 0.3-0.8 [facility] Comment on above: Performed By: #### C BC #### [facility] [address] [place] [address] Dr. Dwight Waters Monocytes/100 WBC (Bld) 8.1 % Normal 1.7-12.0 [facility] Comment on above: Performed By: #### C BC #### [facility] [address] [place] [address] Dr. Dwight Waters NEUT # 4.0 103/ul Normal 1.4-6.5 [facility] Comment on above: Performed By: #### C BC #### [facility] [address] [place] [address] Dr. Dwight Waters Neutrophils/100 WBC (Bld) 60.8 % Normal 43.0-75.0 [facility] Comment on above: Performed By: #### C BC #### [facility] [address] [place] [address] Dr. Dwight Waters Platelet mean volume (Bld) [Entitic vol] 9.4 fL Critically low 9.5-13.5 [facility] Comment on above: Performed By: #### C BC #### [facility] [address] [place] [address] Dr. Dwight Waters PLT 265 103/ul Normal 150-450 [facility] Comment on above: Performed By: #### C BC #### [facility] [address] [place] [address] Dr. Dwight Waters RBC 5.69 106/ul Normal 4.70-6.10 [facility] Comment on above: Performed By: #### C BC #### [facility] [address] [place] [address] Dr. Dwight Waters WBC 6.6 103/ul Normal 4.0-11.0 [facility] Comment on above: Performed By: #### C BC #### [facility] [address] [place] [address] Dr. Dwight Waters GGTon 09-15-2022 Gamma glutamyl transferase [Catalytic activity/Vol] 23 U/L Normal 15-85 [facility] Comment on above: Performed By: #### U RTPCR #### [facility] [address] [place] [address] Dr. Dwight Waters MAGNESIUMon 09-15-2022 Magnesium [Mass/Vol] 1.8 mg/dL Normal 1.8-2.4 [facility] Comment on above: Performed By: #### U RTPCR #### [facility] [address] [place] [address] Dr. Dwight Waters RENAL FUNCTION PANELon 09-15 Albumin [Mass/Vol] 4.1 g/dL Normal 3.4-5.0 [facility] Comment on above: Performed By: #### C BC #### [facility] [address] [place] [address] Dr. Dwight Waters Calcium [Mass/Vol] 9.3 mg/dL Normal 8.5-10.1 [facility] Comment on above: Performed By: #### C BC #### [facility] [address] [place] [address] Dr. Dwight Waters Chloride [Moles/Vol] 107 mmol/L Normal 98-107 [facility] Comment on above: Performed By: #### C BC #### [facility] [address] [place] [address] Dr. Dwight Waters CO2 [Moles/Vol] 25.6 mmol/L Normal 21.0-32.0 [facility] Comment on above: Performed By: #### C BC #### [facility] [address] [place] [address] Dr. Dwight Waters Creatinine [Mass/Vol] 1.01 mg/dL Normal 0.70-1.30 [facility] Comment on above: Performed By: #### C BC #### [facility] [address] [place] [address] Dr. Dwight Waters EGFR-AF DOMINICAN >60 Normal >=60 [facility] Comment on above: Performed By: #### C BC #### [facility] [address] [place] [address] Dr. Dwight Waters EGFR-NON AF DOMINICAN >60 Normal >=60 [facility] Comment on above: Performed By: #### C BC #### [facility] [address] [place] [address] Dr. Dwight Waters Glucose [Mass/Vol] 119 mg/dL Critically high 74-106 [facility] Comment on above: Performed By: #### C BC #### [facility] [address] [place] [address] Dr. Dwight Waters Phosphate [Mass/Vol] 2.8 mg/dL Normal 2.6-4.7 [facility] Comment on above: Performed By: #### C BC #### [facility] [address] [place] [address] Dr. Dwight Waters Potassium [Moles/Vol] 4.0 mmol/L Normal 3.5-5.1 [facility] Comment on above: Performed By: #### C BC #### [facility] [address] [place] [address] Dr. Dwight Waters Sodium [Moles/Vol] 141 mmol/L Normal 136-145 [facility] Comment on above: Performed By: #### C BC #### [facility] [address] [place] [address] Dr. Dwight Waters Urea nitrogen [Mass/Vol] 15.0 mg/dL Normal 7.0-18.0 [facility] Comment on above: Performed By: #### C BC #### [facility] [address] [place] [address] Dr. Dwight Waters SGOTon 09-15-2022 AST [Catalytic activity/Vol] 18 U/L Normal 15-37 [facility] Comment on above: Performed By: #### U RTPCR #### [facility] [address] [place] [address] Dr. Dwight Waters SGPTon 09-15-2022 ALT [Catalytic activity/Vol] 32 U/L Normal 16-63 [facility] Comment on above: Performed By: #### C BC #### [facility] [address] [place] [address] Dr. Dwight Waters URINE T PROTEIN CREAT RATIOo n 09-15-2022 Protein (U) [Mass/Vol] 14.1 mg/dL Critically high <=12.0 [facility] Comment on above: Performed By: #### U RTPCR #### [facility] [address] [place] [address] Dr. Dwight Waters UR PROT CREAT RAT 0.14 Normal [facility] Comment on above: Performed By: #### U RTPCR #### [facility] [address] [place] [address] Dr. Dwight Waters URINE CREAT 98.89 mg/dL Normal 20.00-300.00 [facility] Comment on above: Performed By: #### U RTPCR #### [facility] [address] [place] [address] Dr. Dwight Waters US CAROTID ART BILon [...] MÓNICA JIMENEZ Date: 2022-08-28 13:20 Normal [facility] FK506 (TACROLIMUS) WHOLE BLO ODon 08-17-2022 Tacrolimus (FK506), Blood 9.9 ng/mL Normal 2.0-20.0 [facility] Comment on above: Result Comment: Trou gh (immediately following transplant) 15.0 . Trough (steady state, 2 weeks or more after transplant): 3.0 - 8.0 . Performed by LC-MS/MS technology. Performed By: #### F [id number] #### [facility] [address] [place] [address] Dr. Dwight Waters BK VIRUS PCR QUANTon 022 BKV DNA QUANT PCR PLASMA Negative Normal Negative [facility] Comment on above: Result Comment: No B K DNA detected. . The linear range of the assay is 22 - 100,000,000 IU/mL. Performed By: #### U RTPCR #### [facility] [address] [place] [address] Dr. Dwight Waters Log10 BKV DNA Plasma Normal [facility] Comment on above: Performed By: #### U RTPCR #### [facility] [address] [place] [address] Dr. Dwight Waters ALBUMINon 08-14-2022 Albumin [Mass/Vol] 4.2 g/dL Normal 3.4-5.0 [facility] Comment on above: Performed By: #### F [id number] #### [facility] [address] [place] [address] Dr. Dwight Waters ALKALINE PHOSPHAon ALP [Catalytic activity/Vol] 92 U/L Normal 46-116 [facility] Comment on above: Performed By: #### C BC #### [facility] [address] [place] [address] Dr. Dwight Waters BILIRUBIN CONJUGATED (DIRECT )on 08-14-2022 BILI, CONJUGATED 0.3 mg/dL Critically high 0.0-0.2 [facility] Comment on above: Performed By: #### F [id number] #### [facility] [address] [place] [address] Dr. Dwight Waters BILIRUBIN TOTALon 08-14-2022 Bilirubin [Mass/Vol] 1.5 mg/dL Critically high 0.2-1.0 [facility] Comment on above: Performed By: #### F [id number] #### [facility] [address] [place] [address] Dr. Dwight Waters BUNon 08-14-2022 Urea nitrogen [Mass/Vol] 11.0 mg/dL Normal 7.0-18.0 [facility] Comment on above: Performed By: #### C BC #### [facility] [address] [place] [address] Dr. Dwight Waters CALCIUMon 08-14-2022 Calcium [Mass/Vol] 9.4 mg/dL Normal 8.5-10.1 [facility] Comment on above: Performed By: #### F [id number] #### [facility] [address] [place] [address] Dr. Dwight Waters CBC AUTO DIFFon 08-14-2022 BASO # 0.0 103/ul Normal 0.0-0.1 [facility] Comment on above: Performed By: #### C MP #### [facility] [address] [place] [address] Dr. Dwight Waters Basophils/100 WBC (Bld) 0.5 % Normal 0.2-2.0 [facility] Comment on above: Performed By: #### C MP #### [facility] [address] [place] [address] Dr. Dwight Waters EO # 0.2 103/ul Normal 0.0-0.7 [facility] Comment on above: Performed By: #### C MP #### [facility] [address] [place] [address] Dr. Dwight Waters Eosinophils/100 WBC (Bld) 2.6 % Normal 0.9-7.0 [facility] Comment on above: Performed By: #### C MP #### [facility] [address] [place] [address] Dr. Dwight Waters Erythrocyte distribution width (RBC) [Ratio] 13.1 % Normal 11.0-15.0 [facility] Comment on above: Performed By: #### C MP #### [facility] [address] [place] [address] Dr. Dwight Waters Hematocrit (Bld) [Volume fraction] 47.0 % Normal 42.0-54.0 [facility] Comment on above: Performed By: #### C MP #### [facility] [address] [place] [address] Dr. Dwight Waters Hemoglobin (Bld) [Mass/Vol] 15.3 g/dL Normal 14.0-18.0 [facility] Comment on above: Performed By: #### C MP #### [facility] [address] [place] [address] Dr. Dwight Waters IG # 0.01 10e3/ul Normal 0.00-0.03 [facility] Comment on above: Performed By: #### C MP #### [facility] [address] [place] [address] Dr. Dwight Waters IG % 0.1 % Normal 0.0-0.5 [facility] Comment on above: Performed By: #### C MP #### [facility] [address] [place] [address] Dr. Dwight Waters LYMPH # 2.3 103/ul Normal 1.2-3.8 [facility] Comment on above: Performed By: #### C MP #### [facility] [address] [place] [address] Dr. Dwight Waters Lymphocytes/100 WBC (Bld) 29.8 % Normal 20.5-60.0 [facility] Comment on above: Performed By: #### C MP #### [facility] [address] [place] [address] Dr. Dwight Waters MANUAL DIFF REQ NO Normal [facility] Comment on above: Performed By: #### C MP #### [facility] [address] [place] [address] Dr. Dwight Waters MCH (RBC) [Entitic mass] 28.2 pg Normal 25.9-34.0 [facility] Comment on above: Performed By: #### C MP #### [facility] [address] [place] [address] Dr. Dwight Waters MCHC (RBC) [Mass/Vol] 32.6 g/dL Normal 29.9-35.2 [facility] Comment on above: Performed By: #### C MP #### [facility] [address] [address] [address] Dwight Waters MCV (RBC) [Entitic vol] 86.7 fL Normal 80.0-94.0 [facility] Comment on above: Performed By: #### C MP #### [facility] [address] [address] [address] Dwight Waters MONO # 0.7 103/ul Normal 0.3-0.8 [facility] Comment on above: Performed By: #### C MP #### [facility] [address] [address] [address] Dwight Waters Monocytes/100 WBC (Bld) 8.5 % Normal 1.7-12.0 [facility] Comment on above: Performed By: #### C MP #### [facility] [address] [address] [address] Dwight Waters NEUT # 4.5 103/ul Normal 1.4-6.5 [facility] Comment on above: Performed By: #### C MP #### [facility] [address] [address] [address] Dwight Waters Neutrophils/100 WBC (Bld) 58.5 % Normal 43.0-75.0 [facility] Comment on above: Performed By: #### C MP #### [facility] [address] [address] [address] Dwight Waters Platelet mean volume (Bld) [Entitic vol] 9.7 fL Normal 9.5-13.5 [facility] Comment on above: Performed By: #### C MP #### [facility] [address] [address] [address] Dwight Waters PLT 266 103/ul Normal 150-450 [facility] Comment on above: Performed By: #### C MP #### [facility] [address] [address] [address] Dwight Waters RBC 5.42 106/ul Normal 4.70-6.10 [facility] Comment on above: Performed By: #### C MP #### [facility] [address] [place] [address] Dr. Dwight Waters WBC 7.6 103/ul Normal 4.0-11.0 [facility] Comment on above: Performed By: #### C MP #### [facility] [address] [place] [address] Dr. Dwight Waters CHLORIDEon 08-14-2022 Chloride [Moles/Vol] 104 mmol/L Normal 98-107 [facility] Comment on above: Performed By: #### C BC #### [facility] [address] [place] [address] Dr. Dwight Waters CO2on 08-14-2022 CO2 [Moles/Vol] 27.9 mmol/L Normal 21.0-32.0 [facility] Comment on above: Performed By: #### C BC #### [facility] [address] [place] [address] Dr. Dwight Waters CREATININEon 08-14-2022 Creatinine [Mass/Vol] 1.08 mg/dL Normal 0.70-1.30 [facility] Comment on above: Performed By: #### C BC #### [facility] [address] [place] [address] Dr. Dwight Waters EGFR-AF DOMINICAN >60 Normal >=60 [facility] Comment on above: Performed By: #### C BC #### [facility] [address] [place] [address] Dr. Dwight Waters EGFR-NON AF DOMINICAN >60 Normal >=60 [facility] Comment on above: Performed By: #### C BC #### [facility] [address] [place] [address] Dr. Dwight Waters GGTon 08-14-2022 Gamma glutamyl transferase [Catalytic activity/Vol] 24 U/L Normal 15-85 [facility] Comment on above: Performed By: #### F [id number] #### [facility] [address] [place] [address] Dr. Dwight Waters GLUCOSE BLOODon 08-14-2022 Glucose [Mass/Vol] 111 mg/dL Critically high 74-106 [facility] Comment on above: Performed By: #### C BC #### [facility] [address] [place] [address] Dr. Dwight Waters MAGNESIUMon 08-14-2022 Magnesium [Mass/Vol] 1.4 mg/dL Critically low 1.8-2.4 [facility] Comment on above: Performed By: #### C BC #### [facility] [address] [place] [address] Dr. Dwight Waters NAon 08-14-2022 Sodium [Moles/Vol] 140 mmol/L Normal 136-145 [facility] Comment on above: Performed By: #### F [id number] #### [facility] [address] [place] [address] Dr. Dwight Waters PHOSPHORUSon 08-14-2022 Phosphate [Mass/Vol] 3.1 mg/dL Normal 2.6-4.7 [facility] Comment on above: Performed By: #### C BC #### [facility] [address] [place] [address] Dr. Dwight Waters POTASSIUMon 08-14-2022 Potassium [Moles/Vol] 3.5 mmol/L Normal 3.5-5.1 [facility] Comment on above: Performed By: #### C BC #### [facility] [address] [place] [address] Dr. Dwight Waters SGOToamanda 08-14-2022 AST [Catalytic activity/Vol] 17 U/L Normal 15-37 [facility] Comment on above: Performed By: #### F [id number] #### [facility] [address] [place] [address] Dr. Dwight Waters SGPTon 08-14-2022 ALT [Catalytic activity/Vol] 22 U/L Normal 16-63 [facility] Comment on above: Performed By: #### F [id number] #### [facility] [address] [place] [address] Dr. Dwight Waters URINE T PROTEIN CREAT RATIOo n 08-14-2022 Protein (U) [Mass/Vol] 10.7 mg/dL Normal <=12.0 [facility] Comment on above: Performed By: #### F [id number] #### [facility] [address] [place] [address] Dr. Dwight Waters UR PROT CREAT RAT 0.10 Normal [facility] Comment on above: Performed By: #### F [id number] #### [facility] [address] [id number] Dwight Waters URINE CREAT 104.28 mg/dL Normal 20.00-300.00 [facility] Comment on above: Performed By: #### F [id number] #### [facility] [address] [place], [place] [id number] Dr. Dwight Waters NEPHROSTOMY TUBE REMOVALon 0 [...] physician present for entire procedure: yes [facility] Radiology Study observation (narrative) [facility] FK506 (TACROLIMUS) WHOLE BLO ODon 07-06-2022 Tacrolimus (FK506), Blood 9.5 ng/mL Normal 2.0-20.0 [facility] Comment on above: Result Comment: Trou gh (immediately following transplant) 15.0 . Trough (steady state, 2 weeks or more after transplant): 3.0 - 8.0 . Performed by LC-MS/MS technology. Performed By: #### C MP #### [facility] [address] [place] [address] Dr. Dwight Waters ALBUMINon 07-03-2022 Albumin [Mass/Vol] 3.7 g/dL Normal 3.4-5.0 [facility] Comment on above: Performed By: #### U RTPCR #### [facility] [address] [place] [address] Dr. Dwight Waters ALKALINE PHOSPHAon ALP [Catalytic activity/Vol] 76 U/L Normal 46-116 [facility] Comment on above: Performed By: #### U RTPCR #### [facility] [address] [place] [address] Dr. Dwight Waters BILIRUBIN CONJUGATED (DIRECT )on 07-03-2022 BILI, CONJUGATED 0.3 mg/dL Critically high 0.0-0.2 [facility] Comment on above: Performed By: #### C BC #### [facility] [address] [place] [address] Dr. Dwight Waters BILIRUBIN TOTALon 07-03-2022 Bilirubin [Mass/Vol] 1.4 mg/dL Critically high 0.2-1.0 [facility] Comment on above: Performed By: #### C BC #### [facility] [address] [place] [address] Dr. Dwight Waters BUNon 07-03-2022 Urea nitrogen [Mass/Vol] 15.0 mg/dL Normal 7.0-18.0 [facility] Comment on above: Performed By: #### C BC #### [facility] [address] [place] [address] Dr. Dwight Waters CALCIUMon 07-03-2022 Calcium [Mass/Vol] 9.4 mg/dL Normal 8.5-10.1 [facility] Comment on above: Performed By: #### U RTPCR #### [facility] [address] [address] [address] Dwight Waters CBC AUTO DIFFon 07-03-2022 BASO # 0.0 103/ul Normal 0.0-0.1 [facility] Comment on above: Performed By: #### U RTPCR #### [facility] [address] [place] [address] Dr. Dwight Waters Basophils/100 WBC (Bld) 0.6 % Normal 0.2-2.0 [facility] Comment on above: Performed By: #### U RTPCR #### [facility] [address] [place] [address] Dr. Dwight Waters EO # 0.2 103/ul Normal 0.0-0.7 [facility] Comment on above: Performed By: #### U RTPCR #### [facility] [address] [place] [address] Dr. Dwight Waters Eosinophils/100 WBC (Bld) 3.5 % Normal 0.9-7.0 [facility] Comment on above: Performed By: #### U RTPCR #### [facility] [address] [place] [address] Dr. Dwight Waters Erythrocyte distribution width (RBC) [Ratio] 12.9 % Normal 11.0-15.0 [facility] Comment on above: Performed By: #### U RTPCR #### [facility] [address] [place] [address] Dr. Dwight Waters Hematocrit (Bld) [Volume fraction] 44.2 % Normal 42.0-54.0 [facility] Comment on above: Performed By: #### U RTPCR #### [facility] [address] [place] [address] Dr. Dwight Waters Hemoglobin (Bld) [Mass/Vol] 14.6 g/dL Normal 14.0-18.0 [facility] Comment on above: Performed By: #### U RTPCR #### [facility] [address] [place] [address] Dr. Dwight Waters IG # 0.02 10e3/ul Normal 0.00-0.03 [facility] Comment on above: Performed By: #### U RTPCR #### [facility] [address] [place] [address] Dr. Dwight Waters IG % 0.3 % Normal 0.0-0.5 [facility] Comment on above: Performed By: #### U RTPCR #### [facility] [address] [place] [address] Dr. Dwight Waters LYMPH # 2.0 103/ul Normal 1.2-3.8 [facility] Comment on above: Performed By: #### U RTPCR #### [facility] [address] [place] [address] Dr. Dwight Waters Lymphocytes/100 WBC (Bld) 28.4 % Normal 20.5-60.0 [facility] Comment on above: Performed By: #### U RTPCR #### [facility] [address] [place] [address] Dr. Dwight Waters MANUAL DIFF REQ NO Normal [facility] Comment on above: Performed By: #### U RTPCR #### [facility] [address] [place] [address] Dr. Dwight Waters MCH (RBC) [Entitic mass] 28.6 pg Normal 25.9-34.0 [facility] Comment on above: Performed By: #### U RTPCR #### [facility] [address] [place] [address] Dr. Dwight Waters MCHC (RBC) [Mass/Vol] 33.0 g/dL Normal 29.9-35.2 [facility] Comment on above: Performed By: #### U RTPCR #### [facility] [address] [place] [address] Dr. Dwight Waters MCV (RBC) [Entitic vol] 86.7 fL Normal 80.0-94.0 [facility] Comment on above: Performed By: #### U RTPCR #### [facility] [address] [place] [address] Dr. Dwight Waters MONO # 0.6 103/ul Normal 0.3-0.8 [facility] Comment on above: Performed By: #### U RTPCR #### [facility] [address] [address] [address] Dwight Waters Monocytes/100 WBC (Bld) 9.1 % Normal 1.7-12.0 [facility] Comment on above: Performed By: #### U RTPCR #### [facility] [address] [address] [address] Dwight Waters NEUT # 4.0 103/ul Normal 1.4-6.5 [facility] Comment on above: Performed By: #### U RTPCR #### [facility] [address] [address] [address] Dwight Waters Neutrophils/100 WBC (Bld) 58.1 % Normal 43.0-75.0 [facility] Comment on above: Performed By: #### U RTPCR #### [facility] [address] [place] [address] Dr. Dwight Waters Platelet mean volume (Bld) [Entitic vol] 9.5 fL Normal 9.5-13.5 [facility] Comment on above: Performed By: #### U RTPCR #### [facility] [address] [place] [address] Dr. Dwight Waters PLT 292 103/ul Normal 150-450 [facility] Comment on above: Performed By: #### U RTPCR #### [facility] [address] [place] [address] Dr. Dwight Waters RBC 5.10 106/ul Normal 4.70-6.10 [facility] Comment on above: Performed By: #### U RTPCR #### [facility] [address] [address] [address] Dwight Waters WBC 6.9 103/ul Normal 4.0-11.0 [facility] Comment on above: Performed By: #### U RTPCR #### [facility] [address] [place] [address] Dr. Dwight Waters CHLORIDEon 07-03-2022 Chloride [Moles/Vol] 108 mmol/L Critically high 98-107 [facility] Comment on above: Performed By: #### C BC #### [facility] [address] [place] [address] Dr. Dwight Waters CO2on 07-03-2022 CO2 [Moles/Vol] 25.2 mmol/L Normal 21.0-32.0 [facility] Comment on above: Performed By: #### C BC #### [facility] Laboratory [address] [place] [address] Dr. Dwight Waters CREATININEon 07-03-2022 Creatinine [Mass/Vol] 1.03 mg/dL Normal 0.70-1.30 [facility] Comment on above: Performed By: #### U RTPCR #### [facility] [address] [place] [address] Dr. Dwight Waters EGFR-AF DOMINICAN >60 Normal >=60 [facility] Comment on above: Performed By: #### U RTPCR #### [facility] [address] [place] [address] Dr. Dwight Waters EGFR-NON AF DOMINICAN >60 Normal >=60 [facility] Comment on above: Performed By: #### U RTPCR #### [facility] [address] [place] [address] Dr. Dwight Waters GGTon 07-03-2022 Gamma glutamyl transferase [Catalytic activity/Vol] 31 U/L Normal 15-85 [facility] Comment on above: Performed By: #### U RTPCR #### [facility] [address] [place] [address] Dr. Dwight Waters GLUCOSE BLOODon 07-03-2022 Glucose [Mass/Vol] 119 mg/dL Critically high 74-106 [facility] Comment on above: Performed By: #### U RTPCR #### [facility] [address] [place] [address] Dr. Dwight Waters MAGNESIUMon 07-03-2022 Magnesium [Mass/Vol] 1.4 mg/dL Critically low 1.8-2.4 [facility] Comment on above: Performed By: #### C BC #### [facility] [address] [place] [address] Dr. Dwight Waters NAon 07-03-2022 Sodium [Moles/Vol] 142 mmol/L Normal 136-145 [facility] Comment on above: Performed By: #### C MP #### [facility] [address] [place] [address] Dr. Dwight Waters PHOSPHORUSon 07-03-2022 Phosphate [Mass/Vol] 3.4 mg/dL Normal 2.6-4.7 [facility] Comment on above: Performed By: #### C BC #### [facility] [address] [place] [address] Dr. Dwight Waters POTASSIUMon 07-03-2022 Potassium [Moles/Vol] 4.1 mmol/L Normal 3.5-5.1 [facility] Comment on above: Performed By: #### C BC #### [facility] [address] [place] [address] Dr. Dwight Waters SGOTon 07-03-2022 AST [Catalytic activity/Vol] 14 U/L Critically low 15-37 [facility] Comment on above: Performed By: #### C BC #### [facility] [address] [place] [address] Dr. Dwight Waters SGPTon 07-03-2022 ALT [Catalytic activity/Vol] 25 U/L Normal 16-63 [facility] Comment on above: Performed By: #### C BC #### [facility] [address] [place] [address] Dr. Dwight Waters US KIDNEYSon 07-03-2022 US KIDNEYS Ultrasound kidneys, bilateral HISTORY: Transplant of kidney , pain in the right lower quadrant COMPARISON: None. TECHNIQUE: Transabdominal ultrasound imaging of both kidneys was performed. FINDINGS: The [place] kidneys are diffusely echogenic and atrophic with cortical thinning. The right kidney measures 8.3 x 3.5 x 4.07 m and the left measures 9.9 x 3.8 x 3.6 cm. No hydronephrosis of the [place] kidneys. There is a renal transplant in [...] stone involving the renal transplant. 2. Atrophic [place] kidneys. 3. Normal bladder. Electronically authenticated by: YAAESTEFANIA MOIRA Date: 2022-07-03 17:22 Normal [facility] CT Abdomen and Pelvis WO geoff traston 06-27-2022 IMPRESSION: 1. Both [place] kidneys are atrophic with improvement in right-sided [...] Adrenals: Adrenal glands are unremarkable. Kidneys: Both [place] kidneys are atrophic. Interval improvement in right [place] kidney hydronephrosis since May 15, 2022. Status [...] Adrenals: Adrenal glands are unremarkable. Kidneys: Both [place] kidneys are atrophic. Interval improvement in right [place] kidney hydronephrosis since May 15, 2022. Status [...] aggressive osseous lesions. IMPRESSION IMPRESSION: 1. Both [place] kidneys are atrophic with improvement in right-sided hydronephrosis since May 15, 2022. 2. 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 No hydronephrosis. No discrete perinephric collection. 3. Partially imaged postsurgical changes related to prior liver transplant. 4. The bladder is decompressed, limiting evaluation. [facility] Radiology Study observation (narrative) [facility] CT Abdomen and Pelvis WO con trastOrdered By: Gera Lu on 06-27-2022 [facility] Work Phone: CBC AUTO DIFFon 06-18-2022 BASO # 0.0 103/ul Normal 0.0-0.1 [facility] Comment on above: Performed By: #### U RTPCR #### [facility] [address] [address] [address] Dwight Waters Basophils/100 WBC (Bld) 0.5 % Normal 0.2-2.0 [facility] Comment on above: Performed By: #### U RTPCR #### [facility] [address] [address] [address] Dwight Waters EO # 0.2 103/ul Normal 0.0-0.7 [facility] Comment on above: Performed By: #### U RTPCR #### [facility] [address] [address] [address] Dwight Waters Eosinophils/100 WBC (Bld) 2.3 % Normal 0.9-7.0 [facility] Comment on above: Performed By: #### U RTPCR #### [facility] [address] [address] [address] Dwight Waters Erythrocyte distribution width (RBC) [Ratio] 12.9 % Normal 11.0-15.0 [facility] Comment on above: Performed By: #### U RTPCR #### [facility] [address] [place] [address] Dr. Dwight Waters Hematocrit (Bld) [Volume fraction] 41.2 % Critically low 42.0-54.0 [facility] Comment on above: Performed By: #### U RTPCR #### [facility] [address] [place] [address] Dr. Dwight Waters Hemoglobin (Bld) [Mass/Vol] 13.3 g/dL Critically low 14.0-18.0 [facility] Comment on above: Performed By: #### U RTPCR #### [facility] [address] [place] [address] Dr. Dwight Waters IG # 0.04 10e3/ul Critically high 0.00-0.03 [facility] Comment on above: Performed By: #### U RTPCR #### [facility] [address] [place] [address] Dr. Dwight Waters IG % 0.5 % Normal 0.0-0.5 [facility] Comment on above: Performed By: #### U RTPCR #### [facility] [address] [place] [address] Dr. Dwight Waters LYMPH # 2.0 103/ul Normal 1.2-3.8 [facility] Comment on above: Performed By: #### U RTPCR #### [facility] [address] [place] [address] Dr. Dwight Waters Lymphocytes/100 WBC (Bld) 22.9 % Normal 20.5-60.0 [facility] Comment on above: Performed By: #### U RTPCR #### [facility] [address] [place] [address] Dr. Dwight Waters MANUAL DIFF REQ NO Normal [facility] Comment on above: Performed By: #### U RTPCR #### [facility] [address] [place] [address] Dr. Dwight Waters MCH (RBC) [Entitic mass] 28.7 pg Normal 25.9-34.0 [facility] Comment on above: Performed By: #### U RTPCR #### [facility] [address] [place] [address] Dr. Dwight Waters MCHC (RBC) [Mass/Vol] 32.3 g/dL Normal 29.9-35.2 [facility] Comment on above: Performed By: #### U RTPCR #### [facility] [address] [place] [address] Dr. Dwight Waters MCV (RBC) [Entitic vol] 88.8 fL Normal 80.0-94.0 [facility] Comment on above: Performed By: #### U RTPCR #### [facility] [address] [place] [address] Dr. Dwight Waters MONO # 0.8 103/ul Normal 0.3-0.8 [facility] Comment on above: Performed By: #### U RTPCR #### [facility] [address] [place] [address] Dr. Dwight Waters Monocytes/100 WBC (Bld) 9.7 % Normal 1.7-12.0 [facility] Comment on above: Performed By: #### U RTPCR #### [facility] [address] [place] [address] Dr. Dwight Waters NEUT # 5.6 103/ul Normal 1.4-6.5 [facility] Comment on above: Performed By: #### U RTPCR #### [facility] [address] [place] [address] Dr. Dwight Waters Neutrophils/100 WBC (Bld) 64.1 % Normal 43.0-75.0 [facility] Comment on above: Performed By: #### U RTPCR #### [facility] [address] [place] [address] Dr. Dwight Waters Platelet mean volume (Bld) [Entitic vol] 10.0 fL Normal 9.5-13.5 [facility] Comment on above: Performed By: #### U RTPCR #### [facility] [address] [place] [address] Dr. Dwight Waters PLT 270 103/ul Normal 150-450 [facility] Comment on above: Performed By: #### U RTPCR #### [facility] [address] [place] [address] Dr. Dwight Waters RBC 4.64 106/ul Critically low 4.70-6.10 [facility] Comment on above: Performed By: #### U RTPCR #### [facility] [address] [place] [address] Dr. Dwight Waters WBC 8.7 103/ul Normal 4.0-11.0 [facility] Comment on above: Performed By: #### U RTPCR #### [facility] [address] [place] [address] Dr. Dwight Waters CULTURE URINEon 06-18-2022 CULTURE URINE Culture Observations : NO GROWTH. Normal [facility] Comment on above: Performed By: #### U RTPCR #### [facility] [address] [place] [address] Dr. Dwight Waters Covid-19 PCR ([facility])on 05-31 SARS-CoV-2 (COVID-19) RNA ESTELITA+probe Ql (Unsp spec) Not detected Normal NOT DETECTED [facility] Comment on above: Result Comment: When [...] for this test is supported by the Vascular Ultrasound Technician of Health and Human Service's declaration that [...] used). Performed By: #### C BC #### [facility] [address] [place] [address] Dr. Dwight Waters ER URINE PROFILEon Bilirubin Ql (U) Negative Normal NEGATIVE [facility] Comment on above: Performed By: #### U RTPCR #### [facility] [address] [place] [address] Dr. Dwight Waters Clarity (U) CLEAR Normal CLEAR [facility] Comment on above: Performed By: #### U RTPCR #### [facility] [address] [place] [address] Dr. Dwight Waters Color (U) YELLOW Normal YELLOW [facility] Comment on above: Performed By: #### U RTPCR #### [facility] [address] [place] [address] Dr. Dwight Waters ERULATONYAD A micrscopic examina tion will be performed if indicated. Normal [facility] Comment on above: Performed By: #### U RTPCR #### [facility] [address] [place] [address] Dr. Dwight Waters Glucose Ql (U) Negative Normal NEGATIVE [facility] Comment on above: Performed By: #### U RTPCR #### [facility] [address] [place] [address] Dr. Dwight Waters Hemoglobin Ql (U) LARGE Abnormal NEGATIVE [facility] Comment on above: Performed By: #### U RTPCR #### [facility] [address] [place] [address] Dr. Dwight Waters Ketones Ql (U) Negative Normal NEGATIVE [facility] Comment on above: Performed By: #### U RTPCR #### [facility] [address] [place] [address] Dr. Dwight Waters LEUKOCYTES TRACE Abnormal NEGATIVE [facility] Comment on above: Performed By: #### U RTPCR #### [facility] [address] [place] [address] Dr. Dwight Waters Nitrite Ql (U) Negative Normal NEGATIVE [facility] Comment on above: Performed By: #### U RTPCR #### [facility] [address] [place] [address] Dr. Dwight Waters pH (U) 6.0 [pH] Normal 5-9 [facility] Comment on above: Performed By: #### U RTPCR #### [facility] [address] [place] [address] Dr. Dwight Waters Protein (U) [Mass/Vol] 30 mg/dL Abnormal NEGATIVE/ TRACE [facility] Comment on above: Performed By: #### U RTPCR #### [facility] [address] [place] [address] Dr. Dwight Waters SPEC GRAVITY >=1.030 Abnormal 1.005-<=1.02 5 [facility] Comment on above: Performed By: #### U RTPCR #### [facility] [address] [place] [address] Dr. Dwight Waters UR MICRO IND INDICATED Normal [facility] Comment on above: Performed By: #### U RTPCR #### [facility] [address] [place] [address] Dr. Dwight Waters Urobilinogen Qn (U) 0.2 {Alyssa'U}/dL Normal 0.2 - 1. 0 [facility] Comment on above: Performed By: #### U RTPCR #### [facility] [address] [place] [address] Dr. Dwight Waters PROF 14(COMP METB)on 022 Albumin [Mass/Vol] 3.7 g/dL Normal 3.4-5.0 [facility] Comment on above: Performed By: #### C MP #### [facility] [address] [place] [address] Dr. Dwight Waters Albumin/Globulin [Mass ratio] 0.9 {ratio} Normal [facility] Comment on above: Performed By: #### C MP #### [facility] [address] [place] [address] Dr. Dwight Waters ALP [Catalytic activity/Vol] 80 U/L Normal 46-116 [facility] Comment on above: Performed By: #### C MP #### [facility] [address] [place] [address] Dr. Dwight Waters ALT [Catalytic activity/Vol] 24 U/L Normal 16-63 [facility] Comment on above: Performed By: #### C MP #### [facility] [address] [place] [address] Dr. Dwight Waters Anion gap [Moles/Vol] 12.9 mmol/L Normal [facility] Comment on above: Performed By: #### C MP #### [facility] [address] [address] [address] Dwight Waters AST [Catalytic activity/Vol] 17 U/L Normal 15-37 [facility] Comment on above: Performed By: #### C MP #### [facility] [address] [address] [address] Dwight Waters Bilirubin [Mass/Vol] 0.8 mg/dL Normal 0.2-1.0 [facility] Comment on above: Performed By: #### C MP #### [facility] [address] [address] [address] Dwight Waters Calcium [Mass/Vol] 9.4 mg/dL Normal 8.5-10.1 [facility] Comment on above: Performed By: #### C MP #### [facility] [address] [address] [address] Dwight Waters Chloride [Moles/Vol] 106 mmol/L Normal 98-107 [facility] Comment on above: Performed By: #### C MP #### [facility] [address] [address] [address] Dwight Waters CO2 [Moles/Vol] 25.3 mmol/L Normal 21.0-32.0 [facility] Comment on above: Performed By: #### C MP #### [facility] [address] [address] [address] Dwight Waters Creatinine [Mass/Vol] 1.29 mg/dL Normal 0.70-1.30 [facility] Comment on above: Performed By: #### C MP #### [facility] [address] [address] [address] Dwight Waters EGFR-AF DOMINICAN >60 Normal >=60 [facility] Comment on above: Performed By: #### C MP #### [facility] [address] [address] [address] Dwight Waters EGFR-NON AF DOMINICAN 59 mL/min/1.73m2 Critically low >=60 [facility] Comment on above: Performed By: #### C MP #### [facility] [address] [address] [address] Dwight Waters Globulin (S) [Mass/Vol] 4.2 g/dL Normal [facility] Comment on above: Performed By: #### C MP #### [facility] [address] [place] [address] Dr. Dwight Waters Glucose [Mass/Vol] 106 mg/dL Normal 74-106 [facility] Comment on above: Performed By: #### C MP #### [facility] [address] [address] [address] Dwight Waters Potassium [Moles/Vol] 4.2 mmol/L Normal 3.5-5.1 [facility] Comment on above: Performed By: #### C MP #### [facility] [address] [place] [address] Dr. Dwight Waters Protein [Mass/Vol] 7.9 g/dL Normal 6.4-8.2 [facility] Comment on above: Performed By: #### C MP #### [facility] [address] [place] [address] Dr. Dwight Waters Sodium [Moles/Vol] 140 mmol/L Normal 136-145 [facility] Comment on above: Performed By: #### C MP #### [facility] [address] [place] [address] Dr. Dwight Waters Urea nitrogen [Mass/Vol] 22.0 mg/dL Critically high 7.0-18.0 [facility] Comment on above: Performed By: #### C MP #### [facility] [address] [place] [address] Dr. Dwight Waters Urea nitrogen/Creatinine [Mass ratio] 17.1 mg/mg Normal [facility] Comment on above: Performed By: #### C MP #### [facility] [address] [place] [address] Dr. Dwight Waters URINE MICROSCOPIC ONLYon BACTERIA TRACE Abnormal NONE SEEN [facility] Comment on above: Performed By: #### U RTPCR #### [facility] [address] [place] [address] Dr. Dwight Waters Bacteria identified Cx Nom (U) INDICATED Normal [facility] Comment on above: Performed By: #### U RTPCR #### [facility] [address] [place] [address] Dr. Dwight Waters CAST NONE SEEN Normal NONE SEEN [facility] Comment on above: Performed By: #### U RTPCR #### [facility] [address] [place] [address] Dr. Dwight Waters Crystals LM Nom (Urine sed) NONE SEEN Normal NONE SEEN [facility] Comment on above: Performed By: #### U RTPCR #### [facility] [address] [place] [address] Dr. Dwight Waters Epithelial cells LM Ql (Urine sed) NONE SEEN Normal NONE SEEN /RARE [facility] Comment on above: Performed By: #### U RTPCR #### [facility] [address] [place] [address] Dr. Dwight Waters MUCOUS NONE SEEN Normal NONE SEEN [facility] Comment on above: Performed By: #### U RTPCR #### [facility] [address] [place] [address] Dr. Dwight Waters RBC 5-10 Abnormal 0-2 [facility] Comment on above: Performed By: #### U RTPCR #### [facility] [address] [place] [address] Dr. Dwight Waters WBC 10-20 Abnormal NONE SEEN [facility] Comment on above: Performed By: #### U RTPCR #### [facility] [address] [place] [address] Dr. Dwight Waters ALLOSCREEN RECIPIENT (POST T X PRA)on 06-13-2022 AB SPECIFICITY CLASS COMMENT Antibody Specificity testing performed by [employer]. cPRA calculation based on identification of HLA antibody specificities at MFI >2000 and/or presence of CREG antibodies. [facility] Comment on above: Some of the reagents used for testing in the Clinical Histocompatibility Laboratory have yet to be approved by the FDA. Our certification by CLIA to perform high complexity tests allows us to use these reagents in the context of a stringent QC program, and obviates the need for FDA approval.Testing performed by the [facility] Clinical Histocompatibility Laboratory. ASHLEE number: [id number]. [place] number: [id number], Director: Carlito Merchant, PhD, D([facility]). ANTIBODY SPECIFICITY INTERPRETATION Detected [facility] CLASS I SPECIFICITIES Not detected [facility] CLASS II SPECIFICITIES Not detected [facility] HLA Ab (S) 0 % 0 [facility] EXTRA MICROon 06-13-2022 [facility] URINE CULTUREOrdered By: Jah Upton on 06-13-2022 Bacteria identified Cx Nom (Unsp spec) Growth [facility] Bacteria identified Cx Nom (Unsp spec) 10,000-50,000 CFU/mL Mixed skin shimon [facility] Comment on above: Multiple bacterial m orphotypes present. Suggest appropriate recollection if clinically indicated. [facility] CBC,PLATELETSon 06-12-2022 Erythrocyte distribution width (RBC) [Ratio] 13.0 % 10.9 - 14.3 % [facility] Hematocrit (Bld) [Volume fraction] 43.2 % 39.6 - 48.8 % [facility] Hemoglobin (Bld) [Mass/Vol] 13.9 g/dL 13.4 - 16.8 g/dL [facility] Interpretation and review of laboratory results Normal [facility] MCH (RBC) [Entitic mass] 28.7 pg 26.1 - 33.3 pg [facility] MCHC (RBC) [Mass/Vol] 32.2 g/dL 31.9 - 36.5 g/dL [facility] MCV (RBC) [Entitic vol] 89.1 fL 79.0 - 94.5 fL [facility] Platelet mean volume (Bld) [Entitic vol] 10.5 fL 8.7 - 12.3 fL [facility] Platelets (Bld) [#/Vol] 269 10*3/uL 146 - 337 K/uL [facility] RBC (Bld) [#/Vol] 4.85 10*6/uL [facility] WBC (Bld) [#/Vol] 7.68 10*3/uL 3.73 - 10. 10 K/uL [facility] CHEM 7 (LYTES,BUN,CREA,GLUC) on 06-12-2022 Anion gap [Moles/Vol] 14 mmol/L 7 - 17 mmol/L [facility] Chloride [Moles/Vol] 106 mmol/L 98 - 10 8 mmol/L [facility] CO2 [Moles/Vol] 25 mmol/L 21 - 31 mmol/L [facility] Creatinine [Mass/Vol] 1.26 mg/dL 0.70 - 1.30 mg/dL [facility] GFR/1.73 sq M.predicted CKD-EPI (S/P/Bld) [Vol rate/Area] 69 >=60 mL/min/1.73m 2 [facility] Comment on above: Reported eGFR is bas ed on the CKD-EPI 2020 equation using creatinine, age, and sex. Glucose [Mass/Vol] 83 mg/dL 70 - 99 mg/dL [facility] Osmolality Calc [Osmolality] 295 [facility] Potassium [Moles/Vol] 3.8 mmol/L 3.5 - 5.0 mmol/L [facility] Sodium [Moles/Vol] 141 mmol/L 135 - 145 mmol/L [facility] Urea nitrogen [Mass/Vol] 18 mg/dL 7 - 25 mg/dL [facility] Urea nitrogen/Creatinine [Mass ratio] 14 mg/mg [facility] GGTon 06-12-2022 Gamma glutamyl transferase [Catalytic activity/Vol] 20 U/L 8 - 64 U/L [facility] HEMOGLOBIN [id number] By: [employer] on 06-12-2022 Average glucose Estimated from glycated hemoglobin (Bld) [Mass/Vol] 126 mg/dL [facility] HbA1c (Bld) [Mass fraction] 6.0 % High 4.7 - 5.6 % [facility] Interpretation and review of laboratory results Abnormal [facility] HEPATIC FUNCTION PANELon Albumin [Mass/Vol] 4.3 g/dL 3.5 - 5.0 g/dL [facility] ALP [Catalytic activity/Vol] 78 U/L 32 - 126 U/L [facility] ALT [Catalytic activity/Vol] 12 U/L 10 - 52 U/L [facility] AST [Catalytic activity/Vol] 16 U/L 10 - 39 U/L [facility] Bilirubin [Mass/Vol] 1.0 mg/dL <1.5 [facility] Bilirubin.direct [Mass/Vol] 0.2 mg/dL <0.3 [facility] Protein [Mass/Vol] 7.5 g/dL 6.4 - 8.3 g/dL [facility] No Panel Informationon 06-12 Interpretation and review of laboratory results Normal [facility] PTH INTACTOrdered By: Marli Lizarraga on 06-12-2022 Interpretation and review of laboratory results Abnormal [facility] Parathyrin.intact [Mass/Vol] 79.7 pg/mL High 14.0 - 72.0 pg/mL [facility] URINALYSIS REFLEX TO CULTURE PERFORMABLEon 06-12-2022 Appearance (U) Clear Clear [facility] Bacteria LM Ql (Urine sed) ABSENT ABSENT [facility] Color (U) Yellow Yellow [facility] Epithelial cells.squamous LM Ql (Urine sed) 1/hpf = 1+ 1/hpf = 1+, 2-5/hpf = 2+, 0/hpf = 0+, ABSENT [facility] Glucose Test strip (U) [Mass/Vol] Negative Negative [facility] Interpretation and review of laboratory results Abnormal [facility] Ketones (U) [Mass/Vol] Trace Abnormal Negative [facility] Leukocyte esterase Test strip Ql (U) Small Abnormal Negative [facility] Nitrite Ql (U) Negative Negative [facility] pH (U) 5.5 [pH] 5.0 - 7.0 [facility] Protein (U) [Mass/Vol] 30 mg/dL Abnormal Negative [facility] RBC (U) [#/Vol] Trace Abnormal Negative U [facility] RBC LM.HPF (Urine sed) [#/Area] 0-2 0 - 2 /HPF [facility] Specific gravity (U) [Rel density] 1.026 [facility] Urobilinogen (U) [Mass/Vol] 0.2 E.U./dL 0.2 E.U/dL, 1.0 E.U/dL [facility] WBC LM.HPF (Urine sed) [#/Area] 10-20 Abnormal 0 - 5 /HPF [facility] URINE PROTEIN/CREA RATIO, RA NDOMon 06-12-2022 Creatinine (24H U) [Mass/Vol] 231.68 mg/dL [facility] Protein Unsp time (U) [Mass/Vol] 49 mg/dL [facility] Protein/Creatinine (U) [Mass ratio] 0.211 mg/g [facility] FK506 (TACROLIMUS) WHOLE BLO ODon 06-09-2022 Tacrolimus (FK506), Blood 9.8 ng/mL Normal 2.0-20.0 [facility] Comment on above: Result Comment: Trou gh (immediately following transplant) 15.0 . Trough (steady state, 2 weeks or more after transplant): 3.0 - 8.0 . Performed by LC-MS/MS technology. Performed By: #### U RTPCR #### [facility] [address] [place] [address] Dr. Dwight Waters ALBUMINon 06-06-2022 Albumin [Mass/Vol] 3.8 g/dL Normal 3.4-5.0 [facility] Comment on above: Performed By: #### C MP #### [facility] [address] [place] [address] Dr. Dwight Waters ALKALINE PHOSPHAon ALP [Catalytic activity/Vol] 82 U/L Normal 46-116 [facility] Comment on above: Performed By: #### C MP #### [facility] [address] [place] [address] Dr. Dwight Waters BILIRUBIN CONJUGATED (DIRECT )on 06-06-2022 BILI, CONJUGATED 0.2 mg/dL Normal 0.0-0.2 [facility] Comment on above: Performed By: #### C BC #### [facility] [address] [place] [address] Dr. Dwight Waters BILIRUBIN TOTALon 06-06-2022 Bilirubin [Mass/Vol] 1.0 mg/dL Normal 0.2-1.0 [facility] Comment on above: Performed By: #### C BC #### [facility] [address] [place] [address] Dr. Dwight Waters BUNon 06-06-2022 Urea nitrogen [Mass/Vol] 18.0 mg/dL Normal 7.0-18.0 [facility] Comment on above: Performed By: #### C BC #### [facility] [address] [place] [address] Dr. Dwight Waters CALCIUMon 06-06-2022 Calcium [Mass/Vol] 9.4 mg/dL Normal 8.5-10.1 [facility] Comment on above: Performed By: #### C MP #### [facility] [address] [place] [address] Dr. Dwgiht Waters CBC AUTO DIFFon 06-06-2022 BASO # 0.1 103/ul Normal 0.0-0.1 [facility] Comment on above: Performed By: #### U RTPCR #### [facility] [address] [place] [address] Dr. Dwight Waters Basophils/100 WBC (Bld) 0.8 % Normal 0.2-2.0 [facility] Comment on above: Performed By: #### U RTPCR #### [facility] [address] [place] [address] Dr. Dwight Waters EO # 0.3 103/ul Normal 0.0-0.7 [facility] Comment on above: Performed By: #### U RTPCR #### [facility] [address] [place] [address] Dr. Dwight Waters Eosinophils/100 WBC (Bld) 3.3 % Normal 0.9-7.0 [facility] Comment on above: Performed By: #### U RTPCR #### [facility] [address] [place] [address] Dr. Dwight Waters Erythrocyte distribution width (RBC) [Ratio] 12.4 % Normal 11.0-15.0 [facility] Comment on above: Performed By: #### U RTPCR #### [facility] [address] [place] [address] Dr. Dwight Waters Hematocrit (Bld) [Volume fraction] 45.1 % Normal 42.0-54.0 [facility] Comment on above: Performed By: #### U RTPCR #### [facility] [address] [place] [address] Dr. Dwight Waters Hemoglobin (Bld) [Mass/Vol] 14.4 g/dL Normal 14.0-18.0 [facility] Comment on above: Performed By: #### U RTPCR #### [facility] [address] [place] [address] Dr. Dwight Waters IG # 0.01 10e3/ul Normal 0.00-0.03 [facility] Comment on above: Performed By: #### U RTPCR #### [facility] [address] [place] [address] Dr. Dwight Waters IG % 0.1 % Normal 0.0-0.5 [facility] Comment on above: Performed By: #### U RTPCR #### [facility] [address] [place] [address] Dr. Dwight Waters LYMPH # 2.2 103/ul Normal 1.2-3.8 [facility] Comment on above: Performed By: #### U RTPCR #### [facility] [address] [place] [address] Dr. Dwight Waters Lymphocytes/100 WBC (Bld) 30.0 % Normal 20.5-60.0 [facility] Comment on above: Performed By: #### U RTPCR #### [facility] [address] [place] [address] Dr. Dwight Waters MANUAL DIFF REQ NO Normal [facility] Comment on above: Performed By: #### U RTPCR #### [facility] [address] [place] [address] Dr. Dwight Waters MCH (RBC) [Entitic mass] 28.2 pg Normal 25.9-34.0 [facility] Comment on above: Performed By: #### U RTPCR #### [facility] [address] [place] [address] Dr. Dwight Waters MCHC (RBC) [Mass/Vol] 31.9 g/dL Normal 29.9-35.2 [facility] Comment on above: Performed By: #### U RTPCR #### [facility] [address] [place] [address] Dr. Dwight Waters MCV (RBC) [Entitic vol] 88.3 fL Normal 80.0-94.0 [facility] Comment on above: Performed By: #### U RTPCR #### [facility] [address] [place] [address] Dr. Dwight Waters MONO # 0.6 103/ul Normal 0.3-0.8 [facility] Comment on above: Performed By: #### U RTPCR #### [facility] [address] [place] [address] Dr. Dwight Waters Monocytes/100 WBC (Bld) 8.2 % Normal 1.7-12.0 [facility] Comment on above: Performed By: #### U RTPCR #### [facility] [address] [place] [address] Dr. Dwight Waters NEUT # 4.3 103/ul Normal 1.4-6.5 [facility] Comment on above: Performed By: #### U RTPCR #### [facility] [address] [place] [address] Dr. Dwight Waters Neutrophils/100 WBC (Bld) 57.6 % Normal 43.0-75.0 [facility] Comment on above: Performed By: #### U RTPCR #### [facility] [address] [place] [address] Dr. Dwight Waters Platelet mean volume (Bld) [Entitic vol] 9.7 fL Normal 9.5-13.5 [facility] Comment on above: Performed By: #### U RTPCR #### [facility] [address] [place] [address] Dr. Dwight Waters PLT 297 103/ul Normal 150-450 [facility] Comment on above: Performed By: #### U RTPCR #### [facility] [address] [place] [address] Dr. Dwight Waters RBC 5.11 106/ul Normal 4.70-6.10 [facility] Comment on above: Performed By: #### U RTPCR #### [facility] [address] [place] [address] Dr. Dwight Waters WBC 7.5 103/ul Normal 4.0-11.0 [facility] Comment on above: Performed By: #### U RTPCR #### [facility] [address] [place] [address] Dr. Dwight Waters CHLORIDEon 06-06-2022 Chloride [Moles/Vol] 107 mmol/L Normal 98-107 [facility] Comment on above: Performed By: #### C BC #### [facility] [address] [place] [address] Dr. Dwight Waters CO2on 06-06-2022 CO2 [Moles/Vol] 27.4 mmol/L Normal 21.0-32.0 [facility] Comment on above: Performed By: #### C BC #### [facility] [address] [place] [address] Dr. Dwight Waters CREATININEon 06-06-2022 Creatinine [Mass/Vol] 1.20 mg/dL Normal 0.70-1.30 [facility] Comment on above: Performed By: #### C BC #### [facility] [address] [place] [address] Dr. Dwgiht Waters EGFR-AF DOMINICAN >60 Normal >=60 [facility] Comment on above: Performed By: #### C BC #### [facility] [address] [place] [address] Dr. Dwight Waters EGFR-NON AF DOMINICAN >60 Normal >=60 [facility] Comment on above: Performed By: #### C BC #### [facility] [address] [place] [address] Dr. Dwight Waters GGTon 06-06-2022 Gamma glutamyl transferase [Catalytic activity/Vol] 29 U/L Normal 15-85 [facility] Comment on above: Performed By: #### C BC #### [facility] [address] [place] [address] Dr. Dwight Waters GLUCOSE BLOODon 06-06-2022 Glucose [Mass/Vol] 112 mg/dL Critically high 74-106 [facility] Comment on above: Performed By: #### C BC #### [facility] [address] [place] [address] Dr. Dwight Waters MAGNESIUMon 06-06-2022 Magnesium [Mass/Vol] 1.3 mg/dL Critically low 1.8-2.4 [facility] Comment on above: Performed By: #### C MP #### [facility] [address] [place] [address] Dr. Dwight Waters NAon 06-06-2022 Sodium [Moles/Vol] 141 mmol/L Normal 136-145 [facility] Comment on above: Performed By: #### C MP #### [facility] [address] [place] [address] Dr. Dwight Waters PHOSPHORUSon 06-06-2022 Phosphate [Mass/Vol] 3.1 mg/dL Normal 2.6-4.7 [facility] Comment on above: Performed By: #### C MP #### [facility] [address] [place] [address] Dr. Dwight Waters POTASSIUMon 06-06-2022 Potassium [Moles/Vol] 4.3 mmol/L Normal 3.5-5.1 [facility] Comment on above: Performed By: #### C BC #### [facility] [address] [place] [address] Dr. Dwight Waters SGOTon 06-06-2022 AST [Catalytic activity/Vol] 16 U/L Normal 15-37 [facility] Comment on above: Performed By: #### C BC #### [facility] [address], [place] [address] Dr. Dwight Waters SGPTon 06-06-2022 ALT [Catalytic activity/Vol] 50 U/L Normal 16-63 [facility] Comment on above: Performed By: #### C BC #### [facility] [address], [place] [address] Dr. Dwight Waters Bacteria identified Cx Nom ( Bld)on 05-21-2022 Bacteria identified Cx Nom (Unsp spec) NO GROWTH DAY 5 OF 5 [facility] Results may be compr omised due to volume of BACT\ALERT bottle exceeding 10mLs . The optimal blood volume is 8-10 mls per aerobic/anaerobic blood culture bottle. [facility] CALCIUMon 05-20-2022 Calcium [Mass/Vol] 9.1 mg/dL 8.6 - 10. 5 mg/dL [facility] CBC,PLATELETSon 05-20-2022 Erythrocyte distribution width (RBC) [Ratio] 12.5 % 10.9 - 14.3 % [facility] Hematocrit (Bld) [Volume fraction] 37.1 % Low 39.6 - 48.8 % [facility] Hemoglobin (Bld) [Mass/Vol] 12.3 g/dL Low 13.4 - 16.8 g/dL [facility] Interpretation and review of laboratory results Abnormal [facility] MCH (RBC) [Entitic mass] 28.9 pg 26.1 - 33.3 pg [facility] MCHC (RBC) [Mass/Vol] 33.2 g/dL 31.9 - 36.5 g/dL [facility] MCV (RBC) [Entitic vol] 87.3 fL 79.0 - 94.5 fL [facility] Platelet mean volume (Bld) [Entitic vol] 9.9 fL 8.7 - 12.3 fL [facility] Platelets (Bld) [#/Vol] 234 10*3/uL 146 - 337 K/uL [facility] RBC (Bld) [#/Vol] 4.25 10*6/uL Low [facility] WBC (Bld) [#/Vol] 6.31 10*3/uL 3.73 - 10. 10 K/uL [facility] CHEM 7 (LYTES,BUN,CREA,GLUC) on 05-20-2022 Anion gap [Moles/Vol] 15 mmol/L 7 - 17 mmol/L [facility] Chloride [Moles/Vol] 111 mmol/L High 98 - 10 8 mmol/L [facility] CO2 [Moles/Vol] 22 mmol/L 21 - 31 mmol/L [facility] Creatinine [Mass/Vol] 1.10 mg/dL 0.70 - 1.30 mg/dL [facility] GFR/1.73 sq M.predicted CKD-EPI (S/P/Bld) [Vol rate/Area] 81 >=60 mL/min/1.73m 2 [facility] Comment on above: Reported eGFR is bas ed on the CKD-EPI 2020 equation using creatinine, age, and sex. Glucose [Mass/Vol] 92 mg/dL 70 - 99 mg/dL [facility] Interpretation and review of laboratory results Abnormal [facility] Osmolality Calc [Osmolality] 302 [facility] Potassium [Moles/Vol] 4.4 mmol/L 3.5 - 5.0 mmol/L [facility] Sodium [Moles/Vol] 144 mmol/L 135 - 145 mmol/L [facility] Urea nitrogen [Mass/Vol] 18 mg/dL 7 - 25 mg/dL [facility] Urea nitrogen/Creatinine [Mass ratio] 16 mg/mg [facility] MAGNESIUMon 05-20-2022 Interpretation and review of laboratory results Abnormal [facility] Magnesium [Mass/Vol] 1.5 mg/dL Low 1.6 - 2 .6 mg/dL [facility] No Panel Informationon 05-20 Interpretation and review of laboratory results Normal [facility] PHOSPHATE, INORGANICon 05-20 Phosphate [Mass/Vol] 3.3 mg/dL 2.2 - 4 .6 mg/dL [facility] RF Unspecified body [...] projections of kidneys, ureters, and bladder. FINDINGS: Technical Instructor images: Technical Instructor radiographs of the abdomen reveal a [...] Contrast refluxes up the ureter to the [place] right kidney that is grossly normal appearing. [...] projections of kidneys, ureters, and bladder. FINDINGS: Technical Instructor images: Technical Instructor radiographs of the abdomen reveal a [...] Contrast refluxes up the ureter to the [place] right kidney that is grossly normal appearing. [...] I have reviewed and approved this report. [facility] Radiology Study observation (narrative) [facility] Unspecified body region V iews during surgeryOrdered By: Lizz Campos on 05-20-2022 [facility] Work Phone: CALCIUMon 05-19-2022 Calcium [Mass/Vol] 9.2 mg/dL 8.6 - 10. 5 mg/dL [facility] Calcium [Mass/Vol] 8.6 mg/dL 8.6 - 10. 5 mg/dL [facility] CBC,PLATELETSon 05-19-2022 Erythrocyte distribution width (RBC) [Ratio] 12.4 % 10.9 - 14.3 % [facility] Hematocrit (Bld) [Volume fraction] 38.0 % Low 39.6 - 48.8 % [facility] Hemoglobin (Bld) [Mass/Vol] 12.0 g/dL Low 13.4 - 16.8 g/dL [facility] Interpretation and review of laboratory results Abnormal [facility] MCH (RBC) [Entitic mass] 28.6 pg 26.1 - 33.3 pg [facility] MCHC (RBC) [Mass/Vol] 31.6 g/dL Low 31.9 - 36.5 g/dL [facility] MCV (RBC) [Entitic vol] 90.5 fL 79.0 - 94.5 fL [facility] Platelet mean volume (Bld) [Entitic vol] 9.7 fL 8.7 - 12.3 fL [facility] Platelets (Bld) [#/Vol] 199 10*3/uL 146 - 337 K/uL [facility] RBC (Bld) [#/Vol] 4.20 10*6/uL Low [facility] WBC (Bld) [#/Vol] 6.81 10*3/uL 3.73 - 10. 10 K/uL [facility] CHEM 7 (LYTES,BUN,CREA,GLUC) on 05-19-2022 Anion gap [Moles/Vol] 13 mmol/L 7 - 17 mmol/L [facility] Chloride [Moles/Vol] 105 mmol/L 98 - 10 8 mmol/L [facility] CO2 [Moles/Vol] 30 mmol/L 21 - 31 mmol/L [facility] Creatinine [Mass/Vol] 1.39 mg/dL High 0.70 - 1.30 mg/dL [facility] GFR/1.73 sq M.predicted CKD-EPI (S/P/Bld) [Vol rate/Area] 61 >=60 mL/min/1.73m 2 [facility] Comment on above: Reported eGFR is bas ed on the CKD-EPI 2020 equation using creatinine, age, and sex. Glucose [Mass/Vol] 121 mg/dL High 70 - 99 mg/dL [facility] Interpretation and review of laboratory results Abnormal [facility] Osmolality Calc [Osmolality] 303 [facility] Potassium [Moles/Vol] 3.8 mmol/L 3.5 - 5.0 mmol/L [facility] Sodium [Moles/Vol] 144 mmol/L 135 - 145 mmol/L [facility] Urea nitrogen [Mass/Vol] 18 mg/dL 7 - 25 mg/dL [facility] Urea nitrogen/Creatinine [Mass ratio] 13 mg/mg [facility] Anion gap [Moles/Vol] 15 mmol/L 7 - 17 mmol/L [facility] Chloride [Moles/Vol] 106 mmol/L 98 - 10 8 mmol/L [facility] CO2 [Moles/Vol] 24 mmol/L 21 - 31 mmol/L [facility] Creatinine [Mass/Vol] 1.46 mg/dL High 0.70 - 1.30 mg/dL [facility] GFR/1.73 sq M.predicted CKD-EPI (S/P/Bld) [Vol rate/Area] 58 Low >=60 mL/min/1.73m 2 [facility] Comment on above: Reported eGFR is bas ed on the CKD-EPI 2021 equation using creatinine, age, and sex. Glucose [Mass/Vol] 103 mg/dL High 70 - 99 mg/dL [facility] Interpretation and review of laboratory results Abnormal [facility] Osmolality Calc [Osmolality] 298 [facility] Potassium [Moles/Vol] 3.9 mmol/L 3.5 - 5.0 mmol/L [facility] Sodium [Moles/Vol] 141 mmol/L 135 - 145 mmol/L [facility] Urea nitrogen [Mass/Vol] 21 mg/dL 7 - 25 mg/dL [facility] Urea nitrogen/Creatinine [Mass ratio] 14 mg/mg [facility] MAGNESIUMon 05-19-2022 Magnesium [Mass/Vol] 2.0 mg/dL 1.6 - 2 .6 mg/dL [facility] Magnesium [Mass/Vol] 1.7 mg/dL 1.6 - 2 .6 mg/dL [facility] No Panel Informationon 05-19 Interpretation and review of laboratory results Normal [facility] Interpretation and review of laboratory results Normal [facility] PHOSPHATE, INORGANICon 05-19 Phosphate [Mass/Vol] 3.0 mg/dL 2.2 - 4 .6 mg/dL [facility] Phosphate [Mass/Vol] 2.7 mg/dL 2.2 - 4 .6 mg/dL [facility] CALCIUMon 05-18-2022 Calcium [Mass/Vol] 9.1 mg/dL 8.6 - 10. 5 mg/dL [facility] CBC,PLATELETSon 05-18-2022 Erythrocyte distribution width (RBC) [Ratio] 12.5 % 10.9 - 14.3 % [facility] Hematocrit (Bld) [Volume fraction] 37.3 % Low 39.6 - 48.8 % [facility] Hemoglobin (Bld) [Mass/Vol] 11.9 g/dL Low 13.4 - 16.8 g/dL [facility] Interpretation and review of laboratory results Abnormal [facility] MCH (RBC) [Entitic mass] 28.9 pg 26.1 - 33.3 pg [facility] MCHC (RBC) [Mass/Vol] 31.9 g/dL 31.9 - 36.5 g/dL [facility] MCV (RBC) [Entitic vol] 90.5 fL 79.0 - 94.5 fL [facility] Platelet mean volume (Bld) [Entitic vol] 10.1 fL 8.7 - 12.3 fL [facility] Platelets (Bld) [#/Vol] 189 10*3/uL 146 - 337 K/uL [facility] RBC (Bld) [#/Vol] 4.12 10*6/uL Low [facility] WBC (Bld) [#/Vol] 10.19 10*3/uL High 3.73 - 10 .10 K/uL [facility] CHEM 7 (LYTES,BUN,CREA,GLUC) on 05-18-2022 Anion gap [Moles/Vol] 13 mmol/L 7 - 17 mmol/L [facility] Chloride [Moles/Vol] 102 mmol/L 98 - 10 8 mmol/L [facility] CO2 [Moles/Vol] 26 mmol/L 21 - 31 mmol/L [facility] Creatinine [Mass/Vol] 1.91 mg/dL High 0.70 - 1.30 mg/dL [facility] GFR/1.73 sq M.predicted CKD-EPI (S/P/Bld) [Vol rate/Area] 42 Low >=60 mL/min/1.73m 2 [facility] Comment on above: Reported eGFR is bas ed on the CKD-EPI 2020 equation using creatinine, age, and sex. Glucose [Mass/Vol] 158 mg/dL High 70 - 99 mg/dL [facility] Osmolality Calc [Osmolality] 297 [facility] Potassium [Moles/Vol] 4.0 mmol/L 3.5 - 5.0 mmol/L [facility] Sodium [Moles/Vol] 137 mmol/L 135 - 145 mmol/L [facility] Urea nitrogen [Mass/Vol] 30 mg/dL High 7 - 25 mg/dL [facility] Urea nitrogen/Creatinine [Mass ratio] 16 mg/mg [facility] CHEM 7 (LYTES,BUN,CREA,GLUC) Ordered By: Tamiko Thapa on 05-18-2022 Anion gap [Moles/Vol] 13 mmol/L 7 - 17 mmol/L [facility] Chloride [Moles/Vol] 104 mmol/L 98 - 10 8 mmol/L [facility] CO2 [Moles/Vol] 26 mmol/L 21 - 31 mmol/L [facility] Creatinine [Mass/Vol] 2.96 mg/dL High 0.70 - 1.30 mg/dL [facility] GFR/1.73 sq M.predicted CKD-EPI (S/P/Bld) [Vol rate/Area] 25 Low >=60 mL/min/1.73m 2 [facility] Comment on above: Reported eGFR is bas ed on the CKD-EPI 2020 equation using creatinine, age, and sex. Glucose [Mass/Vol] 136 mg/dL High 70 - 99 mg/dL [facility] Interpretation and review of laboratory results Abnormal [facility] Osmolality Calc [Osmolality] 304 [facility] Potassium [Moles/Vol] 4.2 mmol/L 3.5 - 5.0 mmol/L [facility] Sodium [Moles/Vol] 139 mmol/L 135 - 145 mmol/L [facility] Urea nitrogen [Mass/Vol] 41 mg/dL High 7 - 25 mg/dL [facility] Urea nitrogen/Creatinine [Mass ratio] 14 mg/mg [facility] MAGNESIUMon 05-18-2022 Magnesium [Mass/Vol] 2.2 mg/dL 1.6 - 2 .6 mg/dL [facility] Interpretation and review of laboratory results Normal [facility] Magnesium [Mass/Vol] 1.7 mg/dL 1.6 - 2 .6 mg/dL [facility] No Panel Informationon 05-18 Interpretation and review of laboratory results Abnormal [facility] Interpretation and review of laboratory results Normal [facility] PHOSPHATE, INORGANICon 05-18 Phosphate [Mass/Vol] 2.0 mg/dL Low 2.2 - 4 .6 mg/dL [facility] Interpretation and review of laboratory results Normal [facility] Phosphate [Mass/Vol] 2.8 mg/dL 2.2 - 4 .6 mg/dL [facility] PT,INR,PTTon 05-18-2022 aPTT Coag (PPP) [Time] 31.0 s [facility] INR Coag (Bld) [Relative time] 1.1 {INR} [facility] Interpretation and review of laboratory results Abnormal [facility] PT Coag (PPP) [Time] 14.4 s High [facility] URINE CULTUREOrdered By: Sylvia Campos on 05-18-2022 Bacteria identified Cx Nom (Unsp spec) No Growth [facility] CBC,PLATELETSon 05-17-2022 Erythrocyte distribution width (RBC) [Ratio] 12.8 % 10.9 - 14.3 % [facility] Hematocrit (Bld) [Volume fraction] 42.8 % 39.6 - 48.8 % [facility] Hemoglobin (Bld) [Mass/Vol] 13.3 g/dL Low 13.4 - 16.8 g/dL [facility] Interpretation and review of laboratory results Abnormal [facility] MCH (RBC) [Entitic mass] 28.9 pg 26.1 - 33.3 pg [facility] MCHC (RBC) [Mass/Vol] 31.1 g/dL Low 31.9 - 36.5 g/dL [facility] MCV (RBC) [Entitic vol] 92.8 fL 79.0 - 94.5 fL [facility] Platelet mean volume (Bld) [Entitic vol] 10.3 fL 8.7 - 12.3 fL [facility] Platelets (Bld) [#/Vol] 188 10*3/uL 146 - 337 K/uL [facility] RBC (Bld) [#/Vol] 4.61 10*6/uL [facility] WBC (Bld) [#/Vol] 16.61 10*3/uL High 3.73 - 10 .10 K/uL [facility] CHEM 7 (LYTES,BUN,CREA,GLUC) Ordered By: Kaylah Mc on 05-17-2022 Anion gap [Moles/Vol] 15 mmol/L 7 - 17 mmol/L [facility] Chloride [Moles/Vol] 103 mmol/L 98 - 10 8 mmol/L [facility] CO2 [Moles/Vol] 23 mmol/L 21 - 31 mmol/L [facility] Creatinine [Mass/Vol] 5.95 mg/dL High 0.70 - 1.30 mg/dL [facility] GFR/1.73 sq M.predicted CKD-EPI (S/P/Bld) [Vol rate/Area] 11 Low >=60 mL/min/1.73m 2 [facility] Comment on above: Reported eGFR is bas ed on the CKD-EPI 2020 equation using creatinine, age, and sex. Glucose [Mass/Vol] 165 mg/dL High 70 - 99 mg/dL [facility] Interpretation and review of laboratory results Abnormal [facility] Osmolality Calc [Osmolality] 305 [facility] Potassium [Moles/Vol] 4.6 mmol/L 3.5 - 5.0 mmol/L [facility] Sodium [Moles/Vol] 136 mmol/L 135 - 145 mmol/L [facility] Urea nitrogen [Mass/Vol] 52 mg/dL High 7 - 25 mg/dL [facility] Urea nitrogen/Creatinine [Mass ratio] 9 mg/mg [facility] CHEM 7 (LYTES,BUN,CREA,GLUC) Ordered By: Kehinde Gutierrez on 05-17-2022 Anion gap [Moles/Vol] 24 mmol/L High 7 - 17 mmol/L [facility] Chloride [Moles/Vol] 100 mmol/L 98 - 10 8 mmol/L [facility] CO2 [Moles/Vol] 16 mmol/L Low 21 - 31 mmol/L [facility] Creatinine [Mass/Vol] 8.08 mg/dL High 0.70 - 1.30 mg/dL [facility] GFR/1.73 sq M.predicted CKD-EPI (S/P/Bld) [Vol rate/Area] 7 Low >=60 mL/min/1.73m 2 [facility] Comment on above: Reported eGFR is bas ed on the CKD-EPI 2020 equation using creatinine, age, and sex. Glucose [Mass/Vol] 164 mg/dL High 70 - 99 mg/dL [facility] Interpretation and review of laboratory results Abnormal [facility] Osmolality Calc [Osmolality] 305 [facility] Potassium [Moles/Vol] 5.0 mmol/L 3.5 - 5.0 mmol/L [facility] Sodium [Moles/Vol] 135 mmol/L 135 - 145 mmol/L [facility] Urea nitrogen [Mass/Vol] 56 mg/dL High 7 - 25 mg/dL [facility] Urea nitrogen/Creatinine [Mass ratio] 7 mg/mg [facility] LAVENDER TOP TUBEon 05-17-20 22 [facility] MAGNESIUMon 05-17-2022 Interpretation and review of laboratory results Normal [facility] Magnesium [Mass/Vol] 1.8 mg/dL 1.6 - 2 .6 mg/dL [facility] Interpretation and review of laboratory results Normal [facility] Magnesium [Mass/Vol] 1.6 mg/dL 1.6 - 2 .6 mg/dL [facility] No Panel Informationon 05-17 [facility] PHOSPHATE, INORGANICon 05-17 Interpretation and review of laboratory results Abnormal [facility] Phosphate [Mass/Vol] 4.9 mg/dL High 2.2 - 4 .6 mg/dL [facility] PT,INR,PTTon 05-17-2022 aPTT Coag (PPP) [Time] 33.0 s [facility] INR Coag (Bld) [Relative time] 1.3 {INR} High [facility] Interpretation and review of laboratory results Abnormal [facility] PT Coag (PPP) [Time] 15.7 s High [facility] Portable XR Chest Viewson IMPRESSION: No [...] Stable cardiomegaly. IMPRESSION IMPRESSION: No acute findings. [facility] Radiology Study observation (narrative) [facility] Portable XR Chest ViewsOrder ed By: David Sanz on 05-17-2022 [facility] Work Phone: URINALYSISOrdered By: Michael patel Ma on 05-17-2022 Appearance (U) Cloudy Abnormal Clear [facility] Comment on above: Results may be inacc urate due to color interference. Clinical correlation recommended. Bacteria LM Ql (Urine sed) ABSENT ABSENT [facility] Color (U) Red Abnormal Yellow [facility] Comment on above: Results may be inacc urate due to color interference. Clinical correlation recommended. Epithelial cells.squamous LM Ql (Urine sed) ABSENT 1/hpf = 1+, 2-5/hpf = 2+, 0/hpf = 0+, ABSENT [facility] Glucose Test strip (U) [Mass/Vol] Negative Negative [facility] Comment on above: Results may be inacc urate due to color interference. Clinical correlation recommended. Interpretation and review of laboratory results Abnormal [facility] Ketones (U) [Mass/Vol] Trace Abnormal Negative [facility] Comment on above: Results may be inacc urate due to color interference. Clinical correlation recommended. Leukocyte esterase Test strip Ql (U) Large Abnormal Negative [facility] Comment on above: Results may be inacc urate due to color interference. Clinical correlation recommended. Nitrite Ql (U) Negative Negative [facility] Comment on above: Results may be inacc urate due to color interference. Clinical correlation recommended. pH (U) 5.0 [pH] 5.0 - 7.0 [facility] Comment on above: Results may be inacc urate due to color interference. Clinical correlation recommended. Protein (U) [Mass/Vol] mg/dL Abnormal Negative [facility] Comment on above: Results may be inacc urate due to color interference. Clinical correlation recommended. RBC (U) [#/Vol] Large Abnormal Negative [facility] Comment on above: Results may be inacc urate due to color interference. Clinical correlation recommended. RBC LM.HPF (Urine sed) [#/Area] /[HPF] Abnormal 0 - 2 /HPF [facility] Specific gravity (U) [Rel density] 1.016 [facility] Comment on above: Results may be inacc urate due to color interference. Clinical correlation recommended. Urobilinogen (U) [Mass/Vol] 0.2 E.U./dL 0.2 E.U/dL, 1.0 E.U/dL [facility] Comment on above: Results may be inacc urate due to color interference. Clinical correlation recommended. WBC LM.HPF (Urine sed) [#/Area] /[HPF] Abnormal 0 - 5 /HPF [facility] URINE CULTUREOrdered By: Tyler Tiwari on 05-17-2022 Bacteria identified Cx Nom (Unsp spec) No Growth [facility] CBC,PLATELETSon 05-16-2022 Erythrocyte distribution width (RBC) [Ratio] 12.9 % 10.9 - 14.3 % [facility] Hematocrit (Bld) [Volume fraction] 46.5 % 39.6 - 48.8 % [facility] Hemoglobin (Bld) [Mass/Vol] 14.7 g/dL 13.4 - 16.8 g/dL [facility] Interpretation and review of laboratory results Abnormal [facility] MCH (RBC) [Entitic mass] 28.3 pg 26.1 - 33.3 pg [facility] MCHC (RBC) [Mass/Vol] 31.6 g/dL Low 31.9 - 36.5 g/dL [facility] MCV (RBC) [Entitic vol] 89.6 fL 79.0 - 94.5 fL [facility] Platelet mean volume (Bld) [Entitic vol] 10.3 fL 8.7 - 12.3 fL [facility] Platelets (Bld) [#/Vol] 188 10*3/uL 146 - 337 K/uL [facility] RBC (Bld) [#/Vol] 5.19 10*6/uL [facility] WBC (Bld) [#/Vol] 12.55 10*3/uL High 3.73 - 10 .10 K/uL [facility] CHEM 7 (LYTES,BUN,CREA,GLUC) Ordered By: Alma Pena on 05-16-2022 Anion gap [Moles/Vol] 14 mmol/L 7 - 17 mmol/L [facility] Chloride [Moles/Vol] 103 mmol/L 98 - 10 8 mmol/L [facility] CO2 [Moles/Vol] 22 mmol/L 21 - 31 mmol/L [facility] Creatinine [Mass/Vol] 6.09 mg/dL High 0.70 - 1.30 mg/dL [facility] GFR/1.73 sq M.predicted CKD-EPI (S/P/Bld) [Vol rate/Area] 10 Low >=60 mL/min/1.73m 2 [facility] Comment on above: Reported eGFR is bas ed on the CKD-EPI 2020 equation using creatinine, age, and sex. Glucose [Mass/Vol] 134 mg/dL High 70 - 99 mg/dL [facility] Interpretation and review of laboratory results Abnormal [facility] Osmolality Calc [Osmolality] 298 [facility] Potassium [Moles/Vol] 4.9 mmol/L 3.5 - 5.0 mmol/L [facility] Sodium [Moles/Vol] 134 mmol/L Low 135 - 145 mmol/L [facility] Comment on above: Results inconsistent with previous results Urea nitrogen [Mass/Vol] 49 mg/dL High 7 - 25 mg/dL [facility] Urea nitrogen/Creatinine [Mass ratio] 8 mg/mg [facility] CHEM 7 (LYTES,BUN,CREA,GLUC) on 05-16-2022 Anion gap [Moles/Vol] 17 mmol/L 7 - 17 mmol/L [facility] Chloride [Moles/Vol] 106 mmol/L 98 - 10 8 mmol/L [facility] CO2 [Moles/Vol] 22 mmol/L 21 - 31 mmol/L [facility] Creatinine [Mass/Vol] 5.23 mg/dL High 0.70 - 1.30 mg/dL [facility] GFR/1.73 sq M.predicted CKD-EPI (S/P/Bld) [Vol rate/Area] 13 Low >=60 mL/min/1.73m 2 [facility] Comment on above: Reported eGFR is bas ed on the CKD-EPI 2020 equation using creatinine, age, and sex. Glucose [Mass/Vol] 116 mg/dL High 70 - 99 mg/dL [facility] Interpretation and review of laboratory results Abnormal [facility] Osmolality Calc [Osmolality] 305 [facility] Potassium [Moles/Vol] 4.6 mmol/L 3.5 - 5.0 mmol/L [facility] Sodium [Moles/Vol] 140 mmol/L 135 - 145 mmol/L [facility] Urea nitrogen [Mass/Vol] 42 mg/dL High 7 - 25 mg/dL [facility] Urea nitrogen/Creatinine [Mass ratio] 8 mg/mg [facility] EXTRA MICROon 05-16-2022 [facility] LT BLUE TOP TUBEon 2 [facility] LYTES (NA, K, CL) - URINE - RANDOMon 05-16-2022 Chloride (24H U) [Moles/Vol] 68 mmol/L [facility] Potassium (24H U) [Moles/Vol] 36.7 mmol/L [facility] Sodium (24H U) [Moles/Vol] 55 mmol/L [facility] The reference range has not been established for random urine specimens. The test result should be integrated into the clinical context for interpretation. [facility] MAGNESIUMon 05-16-2022 Interpretation and review of laboratory results Normal [facility] Magnesium [Mass/Vol] 1.7 mg/dL 1.6 - 2 .6 mg/dL [facility] NOVEL CORONAVIRUS PCROrdered By: Edson Candelario on 05-16-2022 SARS-CoV-2 (COVID-19) RNA ESTELITA+probe Ql (Unsp spec) Not detected NOT DETECTED [facility] Comment on above: [facility] Negative results do not [...] use authorization for use by authorized laboratories. [facility] No Panel Informationon 05-16 [facility] OSMOLALITY, URINEon 05-16-20 Interpretation and review of laboratory results Normal [facility] Osmolality (U) [Osmolality] 320 mosm/kg [facility] The reference range has not been established for random urine specimens. The test result should be integrated into the clinical context for interpretation. [facility] PROCALCITONINon 05-16-2022 Interpretation and review of laboratory results Normal [facility] Procalcitonin [Mass/Vol] 0.18 ng/mL <0.50 [facility] Comment on above: Procalcitonin is [...] and trend procalcitonin in various clinical settings. [email or web address] Two common cutoffs associated with bacterial infections are as follows. Respiratory tract infections: >0.25 ng/mL Sepsis/septic shock: >0.5 ng/mL Procalcitonin should not be used alone as a diagnostic tool, however. All procalcitonin results should be interpreted in association with the patients clinical condition and all laboratory findings. [facility] PT,INR,PTTon 05-16-2022 aPTT Coag (PPP) [Time] 30.3 s [facility] INR Coag (Bld) [Relative time] 1.1 {INR} [facility] Interpretation and review of laboratory results Normal [facility] PT Coag (PPP) [Time] 14.1 s [facility] SARS-CoV-2 (COVID-19) RNA NA A+probe Ql (Unsp spec)Ordered By: Edson Candelario on 05-16-2022 Interpretation and review of laboratory results Normal [facility] TACROLIMUS LEVEL, TROUGH (HI E DRUG LEVEL)Ordered By: Mariama Nick on 05-16-2022 Interpretation and review of laboratory results Normal [facility] Tacrolimus (Bld) [Mass/Vol] 4.1 ng/mL Bone Marrow Transplant: 4.0-12.0, Therapeutic: 5.0-15.0 [facility] Method performed is a chemiluminescent microparticle immunoasssay on the [employer] i2000. The range is based on experience at [facility] and users should be aware that target concentrations vary widely depending on concomitant therapy, time post-transplant, and desired degree of immunosuppression. [facility] URINE PROTEIN/CREA RATIO, RA Smiley 05-16-2022 Creatinine (24H U) [Mass/Vol] 59.82 mg/dL [facility] Protein Unsp time (U) [Mass/Vol] 111 mg/dL [facility] Protein/Creatinine (U) [Mass ratio] 1.856 mg/g [facility] US for transplanted kidney l princess 05-16-2022 IMPRESSION: 1. Pelvocaliectasis/mild hydronephrosis in the [...] appearing vascular flow in the transplant kidney. [facility] Radiology Study observation (narrative) [facility] US for transplanted kidney l imitedOrdered By: Rosendo Matute on 05-16-2022 [facility] Work Phone: CBC AND ELECTRONIC DIFFon Basophils (Bld) [#/Vol] 10*3/uL 0.00 - 0.09 K/uL [facility] Basophils/100 WBC (Bld) 0.2 % [facility] Differential cell count method Nom (Bld) Electronic Differential [facility] Eosinophils (Bld) [#/Vol] 10*3/uL 0.00 - 0.48 K/uL [facility] Eosinophils/100 WBC (Bld) 0.0 % [facility] Erythrocyte distribution width (RBC) [Ratio] 12.8 % 10.9 - 14.3 % [facility] Hematocrit (Bld) [Volume fraction] 46.0 % 39.6 - 48.8 % [facility] Hemoglobin (Bld) [Mass/Vol] 14.6 g/dL 13.4 - 16.8 g/dL [facility] Immature granulocytes (Bld) [#/Vol] 0.07 10*3/uL <=0.08 [facility] Immature granulocytes/100 WBC (Bld) 0.4 % [facility] Interpretation and review of laboratory results Abnormal [facility] Lymphocytes (Bld) [#/Vol] 1.49 10*3/uL 0.83 - 3.57 K/uL [facility] Lymphocytes/100 WBC (Bld) 9.4 % [facility] MCH (RBC) [Entitic mass] 28.2 pg 26.1 - 33.3 pg [facility] MCHC (RBC) [Mass/Vol] 31.7 g/dL Low 31.9 - 36.5 g/dL [facility] MCV (RBC) [Entitic vol] 89.0 fL 79.0 - 94.5 fL [facility] Monocytes (Bld) [#/Vol] 1.45 10*3/uL High 0.24 - 0.93 K/uL [facility] Monocytes/100 WBC (Bld) 9.2 % [facility] Neutrophils (Bld) [#/Vol] 12.77 10*3/uL High 1.57 - 6.19 K/uL [facility] Nucleated RBC/100 WBC (Bld) [Ratio] 0.0 % <=0.2 /100 WBC [facility] Platelet mean volume (Bld) [Entitic vol] 9.9 fL 8.7 - 12.3 fL [facility] Platelets (Bld) [#/Vol] 250 10*3/uL 146 - 337 K/uL [facility] RBC (Bld) [#/Vol] 5.17 10*6/uL [facility] Segmented neutrophils/100 WBC (Bld) 80.8 % [facility] WBC (Bld) [#/Vol] 15.81 10*3/uL High 3.73 - 10 .10 K/uL [facility] CBC AUTO DIFFon 05-15-2022 BASO # 0.0 103/ul Normal 0.0-0.1 [facility] Comment on above: Performed By: #### C BC #### [facility] [address] [place] [address] Dr. Dwight Waters Basophils/100 WBC (Bld) 0.3 % Normal 0.2-2.0 [facility] Comment on above: Performed By: #### C BC #### [facility] [address] [address] [address] Dwight Waters EO # 0.1 103/ul Normal 0.0-0.7 [facility] Comment on above: Performed By: #### C BC #### [facility] [address] [place] [address] Dr. Dwight Waters Eosinophils/100 WBC (Bld) 0.8 % Critically low 0.9-7.0 [facility] Comment on above: Performed By: #### C BC #### [facility] [address] [place] [address] Dr. Dwight Waters Erythrocyte distribution width (RBC) [Ratio] 12.7 % Normal 11.0-15.0 [facility] Comment on above: Performed By: #### C BC #### [facility] [address] [place] [address] Dr. Dwight Waters Hematocrit (Bld) [Volume fraction] 43.5 % Normal 42.0-54.0 [facility] Comment on above: Performed By: #### C BC #### [facility] [address] [place] [address] Dr. Dwight Waters Hemoglobin (Bld) [Mass/Vol] 14.4 g/dL Normal 14.0-18.0 [facility] Comment on above: Performed By: #### C BC #### [facility] [address] [place] [address] Dr. Dwight Waters IG # 0.02 10e3/ul Normal 0.00-0.03 [facility] Comment on above: Performed By: #### C BC #### [facility] [address] [place] [address] Dr. Dwight Waters IG % 0.2 % Normal 0.0-0.5 [facility] Comment on above: Performed By: #### C BC #### [facility] [address] [place] [address] Dr. Dwight Waters LYMPH # 1.5 103/ul Normal 1.2-3.8 [facility] Comment on above: Performed By: #### C BC #### [facility] [address] [place] [address] Dr. Dwight Waters Lymphocytes/100 WBC (Bld) 12.5 % Critically low 20.5-60.0 [facility] Comment on above: Performed By: #### C BC #### [facility] [address] [place] [address] Dr. Dwight Waters MANUAL DIFF REQ NO Normal [facility] Comment on above: Performed By: #### C BC #### [facility] [address] [place] [address] Dr. Dwigth Waters MCH (RBC) [Entitic mass] 28.6 pg Normal 25.9-34.0 [facility] Comment on above: Performed By: #### C BC #### [facility] [address] [place] [address] Dr. Dwight Waters MCHC (RBC) [Mass/Vol] 33.1 g/dL Normal 29.9-35.2 [facility] Comment on above: Performed By: #### C BC #### [facility] [address] [place] [address] Dr. Dwight Waters MCV (RBC) [Entitic vol] 86.3 fL Normal 80.0-94.0 [facility] Comment on above: Performed By: #### C BC #### [facility] [address] [place] [address] Dr. Dwight Waters MONO # 1.0 103/ul Critically high 0.3-0.8 [facility] Comment on above: Performed By: #### C BC #### [facility] [address] [place] [address] Dr. Dwight Waters Monocytes/100 WBC (Bld) 8.2 % Normal 1.7-12.0 [facility] Comment on above: Performed By: #### C BC #### [facility] [address] [place] [address] Dr. Dwight Waters NEUT # 9.1 103/ul Critically high 1.4-6.5 [facility] Comment on above: Performed By: #### C BC #### [facility] [address] [place] [address] Dr. Dwight Waters Neutrophils/100 WBC (Bld) 78.0 % Critically high 43.0-75.0 [facility] Comment on above: Performed By: #### C BC #### [facility] [address] [address] [address] Dwight Waters Platelet mean volume (Bld) [Entitic vol] 9.8 fL Normal 9.5-13.5 [facility] Comment on above: Performed By: #### C BC #### [facility] [address] [address] [address] Dwight Waters PLT 251 103/ul Normal 150-450 [facility] Comment on above: Performed By: #### C BC #### [facility] [address] [address] [address] Dwight Waters RBC 5.04 106/ul Normal 4.70-6.10 [facility] Comment on above: Performed By: #### C BC #### [facility] [address] [address] [address] Dwight Waters WBC 11.6 103/ul Critically high 4.0-11.0 [facility] Comment on above: Performed By: #### C BC #### [facility] [address] [address] [address] Dwight Waters CHEM 6 (LYTES, BUN CREA)on 0 05-15-2022 Anion gap [Moles/Vol] 12 mmol/L 7 - 17 mmol/L [facility] Chloride [Moles/Vol] 105 mmol/L 98 - 10 8 mmol/L [facility] CO2 [Moles/Vol] 26 mmol/L 21 - 31 mmol/L [facility] Creatinine [Mass/Vol] 2.85 mg/dL High 0.70 - 1.30 mg/dL [facility] GFR/1.73 sq M.predicted CKD-EPI (S/P/Bld) [Vol rate/Area] 26 Low >=60 mL/min/1.73m 2 [facility] Comment on above: Reported eGFR is bas ed on the CKD-EPI 2020 equation using creatinine, age, and sex. Potassium [Moles/Vol] 4.6 mmol/L 3.5 - 5.0 mmol/L [facility] Sodium [Moles/Vol] 138 mmol/L 135 - 145 mmol/L [facility] Urea nitrogen [Mass/Vol] 32 mg/dL High 7 - 25 mg/dL [facility] Urea nitrogen/Creatinine [Mass ratio] 11 mg/mg [facility] CT ABD/PELVIS WO CONon 05-15 [...] transplanted kidney with moderate right-sided hydronephrosis. Atrophic [place] kidneys with moderate right-sided hydronephrosis. Multiple nonobstructive [...] transplanted kidney with moderate right-sided hydronephrosis. Atrophic [place] kidneys with moderate right-sided hydronephrosis. Multiple nonobstructive right renal calculi measuring up to 8 mm. FOLLOW-UP: Follow-up as clinically indicated. Electronically authenticated by: LYNDSAY JEAN Date: 2022-05-15 05:04 Normal [facility] Covid-19 PCR (CVDTB)on 04-30 SARS-CoV-2 (COVID-19) RNA ESTELITA+probe Ql (Unsp spec) Not detected Normal NOT DETECTED [facility] Comment on above: Result Comment: When [...] for this test is supported by the [place] [employer] and [employer] Service's declaration that [...] used). Performed By: #### U RTPCR #### [facility] [address] [place] [address] Dr. Dwight Waters GLUCOSEon 05-15-2022 Glucose [Mass/Vol] 141 mg/dL High 70 - 99 mg/dL [facility] GOLD TOP TUBEon 05-15-2022 [facility] HEPATIC FUNCTION PANELon Albumin [Mass/Vol] 4.3 g/dL 3.5 - 5.0 g/dL [facility] ALP [Catalytic activity/Vol] 85 U/L 32 - 126 U/L [facility] ALT [Catalytic activity/Vol] 13 U/L 10 - 52 U/L [facility] AST [Catalytic activity/Vol] 15 U/L 10 - 39 U/L [facility] Bilirubin [Mass/Vol] 0.8 mg/dL <1.5 [facility] Bilirubin.direct [Mass/Vol] 0.2 mg/dL <0.3 [facility] Interpretation and review of laboratory results Normal [facility] Protein [Mass/Vol] 7.3 g/dL 6.4 - 8.3 g/dL [facility] LIPASEon 05-15-2022 Lipase [Catalytic activity/Vol] 8 U/L Low 11 - 82 U/L [facility] No Panel Informationon 05-15 Interpretation and review of laboratory results Abnormal [facility] PROF 14(COMP METB)on 022 Albumin [Mass/Vol] 3.8 g/dL Normal 3.4-5.0 [facility] Comment on above: Performed By: #### U RTPCR #### [facility] [address] [place] [address] Dr. Dwight Waters Albumin/Globulin [Mass ratio] 1.1 {ratio} Normal [facility] Comment on above: Performed By: #### U RTPCR #### [facility] [address] [place] [address] Dr. Dwight Waters ALP [Catalytic activity/Vol] 92 U/L Normal 46-116 [facility] Comment on above: Performed By: #### U RTPCR #### [facility] [address] [place] [address] Dr. Dwight Waters ALT [Catalytic activity/Vol] 25 U/L Normal 16-63 [facility] Comment on above: Performed By: #### U RTPCR #### [facility] [address] [place] [address] Dr. Dwight Waters Anion gap [Moles/Vol] 14.6 mmol/L Normal [facility] Comment on above: Performed By: #### U RTPCR #### [facility] [address] [place] [address] Dr. Dwight Waters AST [Catalytic activity/Vol] 17 U/L Normal 15-37 [facility] Comment on above: Performed By: #### U RTPCR #### [facility] [address] [place] [address] Dr. Dwight Waters Bilirubin [Mass/Vol] 0.6 mg/dL Normal 0.2-1.0 [facility] Comment on above: Performed By: #### U RTPCR #### [facility] [address] [place] [address] Dr. Dwight Waters Calcium [Mass/Vol] 9.9 mg/dL Normal 8.5-10.1 [facility] Comment on above: Performed By: #### U RTPCR #### [facility] [address] [place] [address] Dr. Dwight Waters Chloride [Moles/Vol] 106 mmol/L Normal 98-107 [facility] Comment on above: Performed By: #### U RTPCR #### [facility] [address] [place] [address] Dr. Dwight Waters CO2 [Moles/Vol] 24.2 mmol/L Normal 21.0-32.0 [facility] Comment on above: Performed By: #### U RTPCR #### [facility] [address] [place] [address] Dr. Dwight Waters Creatinine [Mass/Vol] 1.58 mg/dL Critically high 0.70-1.30 [facility] Comment on above: Performed By: #### U RTPCR #### [facility] [address] [place] [address] Dr. Dwight Waters EGFR-AF DOMINICAN 56 mL/min/1.73m2 Critically low >=60 [facility] Comment on above: Performed By: #### U RTPCR #### [facility] [address] [place] [address] Dr. Dwight Waters EGFR-NON AF DOMINICAN 46 mL/min/1.73m2 Critically low >=60 [facility] Comment on above: Performed By: #### U RTPCR #### [facility] [address] [place] [address] Dr. Dwight Waters Globulin (S) [Mass/Vol] 3.5 g/dL Normal [facility] Comment on above: Performed By: #### U RTPCR #### [facility] [address] [place] [address] Dr. Dwight Waters Glucose [Mass/Vol] 162 mg/dL Critically high 74-106 [facility] Comment on above: Performed By: #### U RTPCR #### [facility] [address] [place] [address] Dr. Dwight Waters Potassium [Moles/Vol] 3.8 mmol/L Normal 3.5-5.1 [facility] Comment on above: Performed By: #### U RTPCR #### [facility] [address] [place] [address] Dr. Dwight Waters Protein [Mass/Vol] 7.3 g/dL Normal 6.4-8.2 [facility] Comment on above: Performed By: #### U RTPCR #### [facility] [address] [address] [address] Dwight Waters Sodium [Moles/Vol] 141 mmol/L Normal 136-145 [facility] Comment on above: Performed By: #### U RTPCR #### [facility] [address] [address] [address] Dwight Waters Urea nitrogen [Mass/Vol] 22.0 mg/dL Critically high 7.0-18.0 [facility] Comment on above: Performed By: #### U RTPCR #### [facility] [address] [address] [address] Dwight Waters Urea nitrogen/Creatinine [Mass ratio] 13.9 mg/mg Normal [facility] Comment on above: Performed By: #### U RTPCR #### [facility] [address] [address] [address] Dwight Waters Portable XR Chest Viewson [...] chest. IMPRESSION IMPRESSION: No acute cardiopulmonary disease [facility] Radiology Study observation (narrative) [facility] Portable XR Chest ViewsOrder ed By: Vladislav Omer on 05-15-2022 [facility] URINE DIPSTICK; REFLEX MICRO SCOPY; REFLEX CULTURE PERFORMABLEon 05-15-2022 Appearance (U) Clear Clear [facility] Color (U) Yellow Yellow [facility] Glucose Test strip (U) [Mass/Vol] 100 mg/dL Abnormal Negative [facility] Interpretation and review of laboratory results Abnormal [facility] Ketones (U) [Mass/Vol] Negative Negative [facility] Leukocyte esterase Test strip Ql (U) Large Abnormal Negative [facility] Nitrite Ql (U) Negative Negative [facility] pH (U) 6.0 [pH] 5.0 - 7.0 [facility] Protein (U) [Mass/Vol] 100 mg/dL Abnormal Negative [facility] RBC (U) [#/Vol] Large Abnormal Negative [facility] Specific gravity (U) [Rel density] 1.010 [facility] Urobilinogen (U) [Mass/Vol] 0.2 E.U./dL 0.2 E.U/dL, 1.0 E.U/dL [facility] URINE MICROSCOPIC WITH REFLE X TO CULTUREOrdered By: Rey Bro on 05-15-2022 Bacteria LM Ql (Urine sed) ABSENT ABSENT [facility] Epithelial cells.squamous LM Ql (Urine sed) ABSENT 1/hpf = 1+, 2-5/hpf = 2+, 0/hpf = 0+, ABSENT [facility] Interpretation and review of laboratory results Abnormal [facility] RBC LM.HPF (Urine sed) [#/Area] /[HPF] Abnormal 0 - 2 /HPF [facility] WBC LM.HPF (Urine sed) [#/Area] 10-20 Abnormal 0 - 5 /HPF [facility] CT ABD/PELVIS WO CONon 05-12 CT ABD/PELVIS WO CON Begin Addendum #[address] Lund 3:25 PM EST 05/11/2022. Begin Addendum #2 IMPRESSION below should also contain the followin. 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 The [place] kidneys are progressively atrophic bilaterally compared to [...] of 06/14/2020 are no longer present. The [place] distal right ureter is decompressed beyond this [...] with surgical history for renal graft and [place] right urinary drainage, as a discrete ureteroneocystostomy is not identified, and the graft may be draining via a ureteroureterostomy. Urology consultation recommended. 3. The [place] kidneys are bilaterally atrophic, with right renal sinus calcifications consistent with nonobstructing right [place] renal calculi up to 6 mm. Normal [facility] CBC AUTO DIFFon 05-11-2022 BASO # 0.1 103/ul Normal 0.0-0.1 [facility] Comment on above: Performed By: #### U RTPCR #### [facility] [address] [place] [address] Dr. Dwight Waters Basophils/100 WBC (Bld) 0.8 % Normal 0.2-2.0 [facility] Comment on above: Performed By: #### U RTPCR #### [facility] [address] [place] [address] Dr. Dwight Waters EO # 0.2 103/ul Normal 0.0-0.7 [facility] Comment on above: Performed By: #### U RTPCR #### [facility] [address] [place] [address] Dr. Dwight Waters Eosinophils/100 WBC (Bld) 2.5 % Normal 0.9-7.0 [facility] Comment on above: Performed By: #### U RTPCR #### [facility] [address] [place] [address] Dr. Dwight Waters Erythrocyte distribution width (RBC) [Ratio] 12.5 % Normal 11.0-15.0 [facility] Comment on above: Performed By: #### U RTPCR #### [facility] [address] [place] [address] Dr. Dwight Waters Hematocrit (Bld) [Volume fraction] 48.3 % Normal 42.0-54.0 [facility] Comment on above: Performed By: #### U RTPCR #### [facility] [address] [place] [address] Dr. Dwight Waters Hemoglobin (Bld) [Mass/Vol] 15.3 g/dL Normal 14.0-18.0 [facility] Comment on above: Performed By: #### U RTPCR #### [facility] [address] [place] [address] Dr. Dwight Waters IG # 0.01 10e3/ul Normal 0.00-0.03 [facility] Comment on above: Performed By: #### U RTPCR #### [facility] [address] [place] [address] Dr. Dwight Waters IG % 0.2 % Normal 0.0-0.5 [facility] Comment on above: Performed By: #### U RTPCR #### [facility] [address] [place] [address] Dr. Dwight Waters LYMPH # 1.9 103/ul Normal 1.2-3.8 [facility] Comment on above: Performed By: #### U RTPCR #### [facility] [address] [place] [address] Dr. Dwight Waters Lymphocytes/100 WBC (Bld) 29.8 % Normal 20.5-60.0 [facility] Comment on above: Performed By: #### U RTPCR #### [facility] [address] [place] [address] Dr. Dwight Waters MANUAL DIFF REQ NO Normal [facility] Comment on above: Performed By: #### U RTPCR #### [facility] [address] [place] [address] Dr. Dwight Waters MCH (RBC) [Entitic mass] 28.2 pg Normal 25.9-34.0 [facility] Comment on above: Performed By: #### U RTPCR #### [facility] [address] [place] [address] Dr. Dwight Waters MCHC (RBC) [Mass/Vol] 31.7 g/dL Normal 29.9-35.2 [facility] Comment on above: Performed By: #### U RTPCR #### [facility] [address] [place] [address] Dr. Dwight Waters MCV (RBC) [Entitic vol] 89.1 fL Normal 80.0-94.0 [facility] Comment on above: Performed By: #### U RTPCR #### [facility] [address] [place] [address] Dr. Dwight Waters MONO # 0.6 103/ul Normal 0.3-0.8 [facility] Comment on above: Performed By: #### U RTPCR #### [facility] [address] [place] [address] Dr. Dwight Waters Monocytes/100 WBC (Bld) 9.0 % Normal 1.7-12.0 [facility] Comment on above: Performed By: #### U RTPCR #### [facility] [address] [place] [address] Dr. Dwight Waters NEUT # 3.6 103/ul Normal 1.4-6.5 [facility] Comment on above: Performed By: #### U RTPCR #### [facility] [address] [place] [address] Dr. Dwight Waters Neutrophils/100 WBC (Bld) 57.7 % Normal 43.0-75.0 [facility] Comment on above: Performed By: #### U RTPCR #### [facility] [address] [place] [address] Dr. Dwight Waters Platelet mean volume (Bld) [Entitic vol] 9.9 fL Normal 9.5-13.5 [facility] Comment on above: Performed By: #### U RTPCR #### [facility] [address] [place] [address] Dr. Dwight Waters PLT 249 103/ul Normal 150-450 [facility] Comment on above: Performed By: #### U RTPCR #### [facility] [address] [place] [address] Dr. Dwight Waters RBC 5.42 106/ul Normal 4.70-6.10 [facility] Comment on above: Performed By: #### U RTPCR #### [facility] [address] [place] [address] Dr. Dwight Waters WBC 6.3 103/ul Normal 4.0-11.0 [facility] Comment on above: Performed By: #### U RTPCR #### [facility] [address] [place] [address] Dr. Dwight Waters ER URINE PROFILEon 2 Bilirubin Ql (U) Unable to perform te sting due to color interference. Abnormal NEGATIVE [facility] Comment on above: Performed By: #### U RTPCR #### [facility] [address] [place] [address] Dr. Dwight Waters Clarity (U) TURBID Abnormal CLEAR [facility] Comment on above: Performed By: #### U RTPCR #### [facility] [address] [place] [address] Dr. Dwight Waters Color (U) RED Abnormal YELLOW [facility] Comment on above: Performed By: #### U RTPCR #### [facility] [address] [place] [address] Dr. Dwight Waters ERUAHD A micrscopic examina tion will be performed if indicated. Normal [facility] Comment on above: Performed By: #### U RTPCR #### [facility] [address] [place] [address] Dr. Dwight Waters Glucose Ql (U) Unable to perform te sting due to color interference. Abnormal NEGATIVE [facility] Comment on above: Performed By: #### U RTPCR #### [facility] [address] [place] [address] Dr. Dwight Waters Hemoglobin Ql (U) Unable to perform te sting due to color interference. Abnormal NEGATIVE [facility] Comment on above: Performed By: #### U RTPCR #### [facility] [address] [place] [address] Dr. Dwight Waters Ketones Ql (U) Unable to perform te sting due to color interference. Abnormal NEGATIVE [facility] Comment on above: Performed By: #### U RTPCR #### [facility] [address] [place] [address] Dr. Dwight Waters LEUKOCYTES Unable to perform te sting due to color interference. Abnormal NEGATIVE [facility] Comment on above: Performed By: #### U RTPCR #### [facility] [address] [place] [address] Dr. Dwight Waters Nitrite Ql (U) Unable to perform te sting due to color interference. Abnormal NEGATIVE [facility] Comment on above: Performed By: #### U RTPCR #### [facility] [address] [place] [address] Dr. Dwight Waters pH (U) 6.5 [pH] Normal 5-9 [facility] Comment on above: Performed By: #### U RTPCR #### [facility] [address] [place] [address] Dr. Dwight Waters SPEC GRAVITY 1.020 Normal 1.005-<=1.02 5 [facility] Comment on above: Performed By: #### U RTPCR #### [facility] [address] [place] [address] Dr. Dwight Waters UA PROTEIN Unable to perform te sting due to color interference. Normal NEGATIVE/ TRACE [facility] Comment on above: Performed By: #### U RTPCR #### [facility] [address] [place] [address] Dr. Dwight Waters UR MICRO IND INDICATED Normal [facility] Comment on above: Performed By: #### U RTPCR #### [facility] [address] [place] [address] Dr. Dwight Waters UROBILINOGEN Unable to perform te sting due to color interference. Normal 0.2 - 1.0 [facility] Comment on above: Performed By: #### U RTPCR #### [facility] [address] [place] [address] Dr. Dwight Waters PROF 14(COMP METB)on 022 Albumin [Mass/Vol] 3.8 g/dL Normal 3.4-5.0 [facility] Comment on above: Performed By: #### C MP #### [facility] [address] [place] [address] Dr. Dwight Waters Albumin/Globulin [Mass ratio] 1.1 {ratio} Normal [facility] Comment on above: Performed By: #### C MP #### [facility] [address] [place] [address] Dr. Dwight Waters ALP [Catalytic activity/Vol] 106 U/L Normal 46-116 [facility] Comment on above: Performed By: #### C MP #### [facility] [address] [place] [address] Dr. Dwight Waters ALT [Catalytic activity/Vol] 30 U/L Normal 16-63 [facility] Comment on above: Performed By: #### C MP #### [facility] [address] [place] [address] Dr. Dwight Waters Anion gap [Moles/Vol] 11.7 mmol/L Normal [facility] Comment on above: Performed By: #### C MP #### [facility] [address] [place] [address] Dr. Dwight Waters AST [Catalytic activity/Vol] 16 U/L Normal 15-37 [facility] Comment on above: Performed By: #### C MP #### [facility] [address] [place] [address] Dr. Dwight Waters Bilirubin [Mass/Vol] 0.6 mg/dL Normal 0.2-1.0 [facility] Comment on above: Performed By: #### C MP #### [facility] [address] [place] [address] Dr. Dwight Waters Calcium [Mass/Vol] 9.1 mg/dL Normal 8.5-10.1 [facility] Comment on above: Performed By: #### C MP #### [facility] [address] [place] [address] Dr. Dwight Waters CO2 [Moles/Vol] 27.4 mmol/L Normal 21.0-32.0 [facility] Comment on above: Performed By: #### C MP #### [facility] [address] [address] [address] Dwight Waters Creatinine [Mass/Vol] 1.18 mg/dL Normal 0.70-1.30 [facility] Comment on above: Performed By: #### C MP #### [facility] [address] [address] [address] Dwight Waters EGFR-AF DOMINICAN >60 Normal >=60 [facility] Comment on above: Performed By: #### C MP #### [facility] [address] [place] [address] Dr. Dwight Waters EGFR-NON AF DOMINICAN >60 Normal >=60 [facility] Comment on above: Performed By: #### C MP #### [facility] [address] [place] [address] Dr. Dwight Waters Globulin (S) [Mass/Vol] 3.6 g/dL Normal [facility] Comment on above: Performed By: #### C MP #### [facility] [address] [address] [address] Dwight Waters Glucose [Mass/Vol] 192 mg/dL Critically high 74-106 [facility] Comment on above: Performed By: #### C MP #### [facility] [address] [place] [address] Dr. Dwight Waters Potassium [Moles/Vol] 4.1 mmol/L Normal 3.5-5.1 [facility] Comment on above: Performed By: #### C MP #### [facility] [address] [place] [address] Dr. Dwight Waters Protein [Mass/Vol] 7.4 g/dL Normal 6.4-8.2 [facility] Comment on above: Performed By: #### C MP #### [facility] [address] [place] [address] Dr. Dwight Waters Sodium [Moles/Vol] 142 mmol/L Normal 136-145 [facility] Comment on above: Performed By: #### C MP #### [facility] [address] [place] [address] Dr. Dwight Waters Urea nitrogen [Mass/Vol] 17.0 mg/dL Normal 7.0-18.0 [facility] Comment on above: Performed By: #### C MP #### [facility] [address] [place] [address] Dr. Dwight Waters Urea nitrogen/Creatinine [Mass ratio] 14.4 mg/mg Normal [facility] Comment on above: Performed By: #### C MP #### [facility] [address] [place] [address] Dr. Dwight Waters URINE MICROSCOPIC ONLYon BACTERIA NONE SEEN Normal NONE SEEN [facility] Comment on above: Performed By: #### U RTPCR #### [facility] [address] [place] [address] Dr. Dwight Waters Bacteria identified Cx Nom (U) NOT INDICATED Normal [facility] Comment on above: Performed By: #### U RTPCR #### [facility] [address] [place] [address] Dr. Dwight Waters CAST NONE SEEN Normal NONE SEEN [facility] Comment on above: Performed By: #### U RTPCR #### [facility] [address] [place] [address] Dr. Dwight Waters Crystals LM Nom (Urine sed) NONE SEEN Normal NONE SEEN [facility] Comment on above: Performed By: #### U RTPCR #### [facility] [address] [place] [address] Dr. Dwight Waters Epithelial cells LM Ql (Urine sed) RARE Normal NONE SEEN /RARE [facility] Comment on above: Performed By: #### U RTPCR #### [facility] [address] [place] [address] Dr. Dwight Waters MUCOUS NONE SEEN Normal NONE SEEN [facility] Comment on above: Performed By: #### U RTPCR #### [facility] [address] [place] [address] Dr. Dwight Waters RBC (U) [#/Vol] /uL Abnormal 0-2 [facility] Comment on above: Performed By: #### U RTPCR #### [facility] [address] [address] [address] Dwight Waters WBC NONE SEEN Normal NONE SEEN [facility] Comment on above: Performed By: #### U RTPCR #### [facility] [address] [address] [address] Dwight Waters K (Potassium)on 01-06-2020 Potassium [Moles/Vol] 4.4 mmol/L Normal 3.7-5.3 [facility] Comment on above: Performed By: #### K #### [facility] [address] [place] [address] [facility]: Kehinde Woodward MD Potassiumon 01-06-2020 Potassium [Moles/Vol] 4.4 mmol/L 3.7 - 5.3 mmol/L [facility] Work Phone: Hemoglobin and Hematocrit, B loodon 10-24-2019 Hematocrit (Bld) [Volume fraction] 23.6 % Low 40.7 - 50.3 % [place], [place] Hemoglobin (Bld) [Mass/Vol] 7.3 g/dL Low 13 - 17 g/dL [place], [place] Interpretation and review of laboratory results Abnormal [place], [place] Hgb/Hcton 10-24-2019 Hematocrit (Bld) [Volume fraction] 23.6 % Low 40.7-50.3 [facility] Comment on above: Performed By: #### H H #### [facility] [address] [place] [address] [facility]: Kehinde Woodward MD Hemoglobin (Bld) [Mass/Vol] 7.3 g/dL Low 13.0-17.0 [facility] Comment on above: Performed By: #### H H #### [facility] [address] [place] [address] [facility]: Kehinde Woodward MD Hemoglobinon 08-27-2019 Hemoglobin (Bld) [Mass/Vol] 7.5 g/dL Low 13.0-17.0 [facility] Comment on above: Performed By: #### H GB #### [facility] [address] [place] [address] [facility]: Kehinde Woodward MD Hemoglobin (Bld) [Mass/Vol] 7.5 g/dL Low 13 - 17 g/dL [place], [place] Interpretation and review of laboratory results Abnormal [place], [place] Hemoglobinon 08-08-2019 Hemoglobin (Bld) [Mass/Vol] 8.3 g/dL Low 13.0-17.0 [facility] Comment on above: Performed By: #### H GB #### [facility] [address] [place] [address] [facility]: Kehinde Woodward MD Hemoglobin (Bld) [Mass/Vol] 8.3 g/dL Low 13 - 17 g/dL [place], [place] Interpretation and review of laboratory results Abnormal [place] Hemoglobinon 08-04-2019 Hemoglobin (Bld) [Mass/Vol] 8.0 g/dL Low 13.0-17.0 [facility] Comment on above: Performed By: #### H GB #### [facility] [address] [place] [address] [facility]: Kehinde Woodward MD Hemoglobin A1Con 08-03-2019 HbA1c (Bld) [Mass fraction] % Low 4.8-5.9 [facility] Comment on above: Result Comment: The ADA and AACC recommend providing the estimated average glucose result to permit better patient understanding of their HBA1c result. Performed By: #### G LYHGB #### [facility] [address] [place] [address] [facility]: Kehinde Woodward MD Glucose [Mass/Vol] mg/dL mg/dL [place], [place] Comment on above: The ADA and AACC rec ommend providing the estimated average glucose result to permit better patient understanding of their HBA1c result. HbA1c (Bld) [Mass fraction] % Low 4.8 - 5.9 % [place], [place] Interpretation and review of laboratory results Abnormal [place], [place] Hemoglobinon 08-01-2019 Hemoglobin (Bld) [Mass/Vol] 8.1 g/dL Low 13.0-17.0 [facility] Comment on above: Performed By: #### H GB #### [facility] [address] [place] [address] [facility]: Kehinde Woodward MD Hemoglobin (Bld) [Mass/Vol] 8.1 g/dL Low 13 - 17 g/dL [place], [place] Interpretation and review of laboratory results Abnormal [place], [place] Hgb/Hcton 06-10-2019 Hematocrit (Bld) [Volume fraction] 24.3 % Low 40.7-50.3 [facility] Comment on above: Performed By: #### H H #### [facility] [address] [place] [facility]: Kehinde Woodward MD Hemoglobin (Bld) [Mass/Vol] 7.4 g/dL Low 13.0-17.0 [facility] Comment on above: Performed By: #### H H #### [facility] [address] [place] [address] [facility]: Kehinde Woodward MD Hemoglobinon 06-01-2019 Hemoglobin (Bld) [Mass/Vol] 7.2 g/dL Low 13.0-17.0 [facility] Comment on above: Performed By: #### H GB #### [facility] [address] [place] [address] [facility]: Kehinde Woodward MD K (Potassium)on 01-14-2019 Potassium [Moles/Vol] 3.6 mmol/L Low 3.7-5.3 [facility] Comment on above: Performed By: #### K #### [facility] [address] [place] [address] [facility]: Kehinde Woodward MD Otheron 10-19-2018 IMPRESSION: 1. [...] by Toxicology Laboratory at [facility]. It has not been cleared or approved [...] Amitriptyline(50), Amphetamine(250), Atenolol(500), Barbiturates(1000), Benzoylecgonine(50), Buprenorphine(50), Bupropion(25), Caffeine(70086), Chlordiazepoxide(50), Chlorpheniramine(100), Chlorpromazine(50), Citalopram(100), Clonazepam(200), Cocaine(25), Codeine(200), [...] Code LAB, [facility] TOXICOLOGY SCREEN URINE - [facility] 10-12-2018 Drugs identified Screen Nom (U) For Medical Purposes Only, Non-forensic, screen results are presumptive. No confirmatory testing will follow. Invalid Interpretation Code LAB, [facility] Comment on above: This Liquid Chromato graphy Mass Spectrometry (LC/MS/MS) test was developed and its performance characteristics determined by Toxicology Laboratory at [facility]. It has not been cleared or approved [...] Amitriptyline(50), Amphetamine(250), Atenolol(500), Barbiturates(200), Benzoylecgonine(50), Buprenorphine(500), Bupropion(25), Caffeine(25889), Cannabinoids(THC)(50), Chlordiazepoxide(50), Chlorpheniramine(100), Chlorpromazine(50), Citalopram(100), Clonazepam(200), Cocaine(25), [...] Time Vital Sign Value Performing Clinician Facility 06-17-2024 08:37-0400 Body mass index (BMI) [Ratio] 29.43 kg/m2 Rebeca Gutierrez FIRE EXTINGUISHER INSPECTOR-TANGLED YARN SPOOL STRAIGHTENER Work Phone: [facility] 06-17-2024 08:37-0400 Body temperature 97.39 [degF] Rebeca Gutierrez FIRE EXTINGUISHER INSPECTOR-TANGLED YARN SPOOL STRAIGHTENER Work Phone: [facility] 06-17-2024 08:37-0400 Body weight 85.23 kg Rebeca Gutierrez FIRE EXTINGUISHER INSPECTOR-TANGLED YARN SPOOL STRAIGHTENER Work Phone: [facility] 06-17-2024 08:37-0400 Diastolic blood pressure 75 mm[Hg] Rebeca Gutierrez FIRE EXTINGUISHER INSPECTOR-TANGLED YARN SPOOL STRAIGHTENER Work Phone: [facility] 06-17-2024 08:37-0400 Heart rate 53 /min Rebeca Gutierrez FIRE EXTINGUISHER INSPECTOR-TANGLED YARN SPOOL STRAIGHTENER Work Phone: [facility] 06-17-2024 08:37-0400 Systolic blood pressure 143 mm[Hg] Rebeca Gutierrez FIRE EXTINGUISHER INSPECTOR-TANGLED YARN SPOOL STRAIGHTENER Work Phone: [facility] 06-17-2024 08:36-0400 Body mass index (BMI) [Ratio] 29.43 kg/m2 Daisha Sobotka DO Work Phone: [facility] 06-17-2024 08:36-0400 Body temperature 97.39 [degF] Daisha Sobotka DO Work Phone: [facility] 06-17-2024 08:36-0400 Body weight 85.23 kg Daisha Sobotka DO Work Phone: [facility] 06-17-2024 08:36-0400 Diastolic blood pressure 75 mm[Hg] Daisha Sobotka DO Work Phone: [facility] 06-17-2024 08:36-0400 Heart rate 53 /min Daisha Sobotka DO Work Phone: [facility] 06-17-2024 08:36-0400 Systolic blood pressure 143 mm[Hg] Daisha Sobotka DO Work Phone: [facility] 02-26-2024 09:07-0400 Diastolic blood pressure 56 mm[Hg] Candie Almaguer MD Work Phone: [facility] 02-26-2024 09:07-0400 Heart rate 65 /min Candie Almaguer MD Work Phone: [facility] 02-26-2024 09:07-0400 Systolic blood pressure 113 mm[Hg] Candie Almaguer MD Work Phone: [facility] 02-26-2024 09:06-0400 Body height 170.2 cm Candie Almaguer MD Work Phone: [facility] 02-26-2024 09:06-0400 Body mass index (BMI) [Ratio] 28.9 kg/m2 Candie Almaguer MD Work Phone: [facility] 02-26-2024 09:06-0400 Body weight 83.69 kg Candie Almaguer MD Work Phone: [facility] 02-26-2024 09:06-0400 Respiratory rate 20 /min Candie Almaguer MD Work Phone: [facility] 02-26-2024 09:06-0400 SaO2% (BldA) [Mass fraction] 97 % Candie Almaguer MD Work Phone: [facility] 01-23-2024 15:04-0500 Body temperature 97.9 [degF] Kevin Prince MD Work Phone: [facility] 01-23-2024 15:04-0500 Diastolic blood pressure 67 mm[Hg] Kevin Prince MD Work Phone: [facility] 01-23-2024 15:04-0500 Heart rate 51 /min Kevin Prince MD Work Phone: [facility] 01-23-2024 15:04-0500 Respiratory rate 16 /min Kevin Prince MD Work Phone: [facility] 01-23-2024 15:04-0500 SaO2% (BldA) [Mass fraction] 94 % Kevin Prince MD Work Phone: [facility] 01-23-2024 15:04-0500 Systolic blood pressure 151 mm[Hg] Kevin Prince MD Work Phone: [facility] 01-23-2024 10:46-0500 Body mass index (BMI) [Ratio] 30.94 kg/m2 Kevin Prince MD Work Phone: [facility] 01-23-2024 10:46-0500 Body weight 89.6 kg Kevin Prince MD Work Phone: [facility] 01-18-2024 11:21-0500 Body height 170.2 cm Kevin Prince MD Work Phone: [facility] 01-06-2024 09:04-0500 Body height 170.2 cm Zuly Bruno UNMANNED EQUIPMENT OPERATOR Work Phone: [facility] 01-06-2024 09:04-0500 Body mass index (BMI) [Ratio] 32.42 kg/m2 Zuly Bruno UNMANNED EQUIPMENT OPERATOR Work Phone: [facility] 01-06-2024 09:04-0500 Body temperature 97.81 [degF] Zuly Bruno UNMANNED EQUIPMENT OPERATOR Work Phone: [facility] 01-06-2024 09:04-0500 Body weight 93.89 kg Zuly Bruno UNMANNED EQUIPMENT OPERATOR Work Phone: [facility] 01-06-2024 09:04-0500 Diastolic blood pressure 70 mm[Hg] Zuly Aichholz UNMANNED EQUIPMENT OPERATOR Work Phone: [facility] 01-06-2024 09:04-0500 Heart rate 95 /min Zuly Tannerholz UNMANNED EQUIPMENT OPERATOR Work Phone: [facility] 01-06-2024 09:04-0500 Respiratory rate 17 /min Zulytray Tannerholz UNMANNED EQUIPMENT OPERATOR Work Phone: [facility] 01-06-2024 09:04-0500 SaO2% (BldA) [Mass fraction] 99 % Zuly Annz UNMANNED EQUIPMENT OPERATOR Work Phone: [facility] 01-06-2024 09:04-0500 Systolic blood pressure 138 mm[Hg] Zuly Tannerholz UNMANNED EQUIPMENT OPERATOR Work Phone: [facility] 09-11-2023 10:31-0400 Body temperature 97.81 [degF] Steve Yeison MBBS Work Phone: [facility] 09-11-2023 10:31-0400 Diastolic blood pressure 66 mm[Hg] Steve Yeison MBBS Work Phone: [facility] 09-11-2023 10:31-0400 Heart rate 70 /min Steve Yeison MBBS Work Phone: [facility] 09-11-2023 10:31-0400 Respiratory rate 20 /min Steve Yeison MBBS Work Phone: [facility] 09-11-2023 10:31-0400 SaO2% (BldA) [Mass fraction] 91 % Steve Yeison MBBS Work Phone: [facility] 09-11-2023 10:31-0400 Systolic blood pressure 129 mm[Hg] Steve Yeison MBBS Work Phone: [facility] 09-10-2023 15:50-0400 Body mass index (BMI) [Ratio] 31.99 kg/m2 Steve Yeison MBBS Work Phone: [facility] 09-10-2023 15:50-0400 Body weight 92.67 kg Steve Yeison MBBS Work Phone: [facility] 09-02-2023 07:32-0400 Body height 170.2 cm Steve Yeison MBBS Work Phone: [facility] 08-28-2023 13:33-0400 Body height 170.2 cm Steve Yeison MBBS Work Phone: [facility] 08-28-2023 13:33-0400 Body mass index (BMI) [Ratio] 32.12 kg/m2 Steve Yeison MBBS Work Phone: [facility] 08-28-2023 13:33-0400 Body temperature 97.3 [degF] Steve Yeison MBBS Work Phone: [facility] 08-28-2023 13:33-0400 Body weight 93.03 kg Steve Yeison MBBS Work Phone: [facility] 08-28-2023 13:33-0400 Diastolic blood pressure 41 mm[Hg] Steve Yeison MBBS Work Phone: [facility] 08-28-2023 13:33-0400 Heart rate 116 /min Steve Yeison MBBS Work Phone: [facility] 08-28-2023 13:33-0400 Systolic blood pressure 106 mm[Hg] Steve Yeison MBBS Work Phone: [facility] 06-12-2023 14:50-0400 Body mass index (BMI) [Ratio] 33.8 kg/m2 Rebeca Gutierrez FIRE EXTINGUISHER INSPECTOR-TANGLED YARN SPOOL STRAIGHTENER Work Phone: [facility] 06-12-2023 14:50-0400 Body temperature 97.3 [degF] Rebeca Gutierrez FIRE EXTINGUISHER INSPECTOR-TANGLED YARN SPOOL STRAIGHTENER Work Phone: [facility] 06-12-2023 14:50-0400 Body weight 97.89 kg Rebeca Gutierrez FIRE EXTINGUISHER INSPECTOR-TANGLED YARN SPOOL STRAIGHTENER Work Phone: [facility] 06-12-2023 14:50-0400 Diastolic blood pressure 77 mm[Hg] Rebeca Gutierrez FIRE EXTINGUISHER INSPECTOR-TANGLED YARN SPOOL STRAIGHTENER Work Phone: [facility] 06-12-2023 14:50-0400 Heart rate 76 /min Rebeca Gutierrez FIRE EXTINGUISHER INSPECTOR-TANGLED YARN SPOOL STRAIGHTENER Work Phone: [facility] 06-12-2023 14:50-0400 Systolic blood pressure 146 mm[Hg] Rebeca Gutierrez FIRE EXTINGUISHER INSPECTOR-TANGLED YARN SPOOL STRAIGHTENER Work Phone: [facility] 01-16-2023 08:57-0500 Body height 170.2 cm [facility] Work Phone: [facility] 01-16-2023 08:57-0500 Body mass index (BMI) [Ratio] 33.66 kg/m2 [facility] Work Phone: [facility] 01-16-2023 08:57-0500 Body temperature 97.3 [degF] [facility] Work Phone: [facility] 01-16-2023 08:57-0500 Body weight 97.48 kg [facility] Work Phone: [facility] 01-16-2023 08:57-0500 Diastolic blood pressure 75 mm[Hg] [facility] Work Phone: [facility] 01-16-2023 08:57-0500 Heart rate 76 /min [facility] Work Phone: [facility] 01-16-2023 08:57-0500 Systolic blood pressure 142 mm[Hg] [facility] Work Phone: [facility] 09-10-2022 09:38-0400 Body height 170.2 cm Ryan Yepez MD Work Phone: [facility] 09-10-2022 09:38-0400 Body mass index (BMI) [Ratio] 33.67 kg/m2 Ryan Yepez MD Work Phone: [facility] 09-10-2022 09:38-0400 Body weight 97.52 kg Ryan Yepez MD Work Phone: [facility] 09-10-2022 09:38-0400 Diastolic blood pressure 83 mm[Hg] Ryan Yepez MD Work Phone: [facility] 09-10-2022 09:38-0400 Heart rate 64 /min Ryan Yepez MD Work Phone: [facility] 09-10-2022 09:38-0400 SaO2% (BldA) [Mass fraction] 96 % Ryan Yepez MD Work Phone: [facility] 09-10-2022 09:38-0400 Systolic blood pressure 129 mm[Hg] Ryan Yepez MD Work Phone: [facility] 07-07-2022 13:48-0400 Diastolic blood pressure 76 mm[Hg] Ryan Yepez MD Work Phone: [facility] 07-07-2022 13:48-0400 Heart rate 82 /min Ryan Yepez MD Work Phone: [facility] 07-07-2022 13:48-0400 SaO2% (BldA) [Mass fraction] 96 % Ryan Yepez MD Work Phone: [facility] 07-07-2022 13:48-0400 Systolic blood pressure 141 mm[Hg] Ryan Yepez MD Work Phone: [facility] 06-27-2022 13:32-0400 Body height 170.2 cm Ryan Yepez MD Work Phone: [facility] 06-27-2022 13:32-0400 Body mass index (BMI) [Ratio] 34.24 kg/m2 Ryan Yepez MD Work Phone: [facility] 06-27-2022 13:32-0400 Body temperature 98.6 [degF] Ryan Yepez MD Work Phone: [facility] 06-27-2022 13:32-0400 Body weight 99.16 kg Ryan Yepez MD Work Phone: [facility] 06-27-2022 13:32-0400 Diastolic blood pressure 78 mm[Hg] Ryan Yepez MD Work Phone: [facility] 06-27-2022 13:32-0400 Heart rate 77 /min Ryan Yepez MD Work Phone: [facility] 06-27-2022 13:32-0400 SaO2% (BldA) [Mass fraction] 95 % Ryan Yepez MD Work Phone: [facility] 06-27-2022 13:32-0400 Systolic blood pressure 121 mm[Hg] Ryan Yepez MD Work Phone: [facility] 06-27-2022 10:52-0400 Body height 170.2 cm Rena Brewster RN [facility] 06-27-2022 10:52-0400 Body mass index (BMI) [Ratio] 34.46 kg/m2 Rena Brewster RN [facility] 06-27-2022 10:52-0400 Body temperature 98.2 [degF] Rena Brewster RN [facility] 06-27-2022 10:52-0400 Body weight 99.79 kg Rena Brewster RN [facility] 06-27-2022 10:52-0400 Diastolic blood pressure 73 mm[Hg] Rena Brewster RN [facility] 06-27-2022 10:52-0400 Heart rate 78 /min Rena Brewster RN [facility] 06-27-2022 10:52-0400 Respiratory rate 20 /min Rena Brewster RN [facility] 06-27-2022 10:52-0400 SaO2% (BldA) [Mass fraction] 97 % Rena Brewster RN [facility] 06-27-2022 10:52-0400 Systolic blood pressure 135 mm[Hg] Rena Brewster RN [facility] 06-12-2022 14:23-0400 Body mass index (BMI) [Ratio] 34.59 kg/m2 Steve Yeison MBBS Work Phone: [facility] 06-12-2022 14:23-0400 Body temperature 97 [degF] Steve Yeison MBBS Work Phone: [facility] 06-12-2022 14:23-0400 Body weight 100.2 kg Steve Yeison MBBS Work Phone: [facility] 06-12-2022 14:23-0400 Diastolic blood pressure 66 mm[Hg] Steve Yeison MBBS Work Phone: [facility] 06-12-2022 14:23-0400 Heart rate 63 /min Steve Yeison MBBS Work Phone: [facility] 06-12-2022 14:23-0400 Systolic blood pressure 133 mm[Hg] Steve Yeison MBBS Work Phone: [facility] 05-20-2022 15:21-0400 Body temperature 97.9 [degF] Gian Villatoro MD Work Phone: [facility] 05-20-2022 15:21-0400 Diastolic blood pressure 64 mm[Hg] Gian Villatoro MD Work Phone: [facility] 05-20-2022 15:21-0400 Heart rate 55 /min Gian Villatoro MD Work Phone: [facility] 05-20-2022 15:21-0400 Respiratory rate 15 /min Gian Villatoro MD Work Phone: [facility] 05-20-2022 15:21-0400 SaO2% (BldA) [Mass fraction] 95 % Gian Villatoro MD Work Phone: [facility] 05-20-2022 15:21-0400 Systolic blood pressure 145 mm[Hg] Gian Villatoro MD Work Phone: [facility] 05-19-2022 12:15-0400 Body mass index (BMI) [Ratio] 35.87 kg/m2 Gian Villatoro MD Work Phone: [phone] 05-19-2022 12:15-0400 Body weight 103.92 kg Gian Villatoro MD Work Phone: [facility] Comment on above: standing scale 05-16-2022 16:19-0400 Body height 170.2 cm Gian Villatoro MD Work Phone: [facility] 10-19-2018 08:44-0500 BMI (Body Mass Index) 26.58 kg/m2 [facility] Work Phone: 10-19-2018 08:44-0500 BP Diastolic 76 mm[Hg] [facility] Work Phone: 10-19-2018 08:44-0500 BP Systolic 144 mm[Hg] [facility] Work Phone: 10-19-2018 08:44-0500 Height 172.7 cm [facility] Work Phone: 10-19-2018 08:44-0500 Pulse (Heart Rate) 92 /min [facility] Work Phone: 10-19-2018 08:44-0500 Pulse Oximetry 99 % [facility] Work Phone: 10-19-2018 08:44-0500 Respiratory Rate 16 /min [facility] Work Phone: 10-19-2018 08:44-0500 Weight 79.29 kg [facility] Work Phone: 10-12-2018 09:50-0500 BMI (Body Mass Index) 27.24 kg/m2 [facility] Work Phone: 10-12-2018 09:50-0500 Body Temperature 98.6 [degF] [facility] Work Phone: 10-12-2018 09:50-0500 BP Diastolic 80 mm[Hg] [facility] Work Phone: 10-12-2018 09:50-0500 BP Systolic 157 mm[Hg] [facility] Work Phone: 10-12-2018 09:50-[address] [facility] Work Phone: 10-12-2018 09:50-0500 Pulse (Heart Rate) 94 /min Elmahdi [facility] Work Phone: 10-12-2018 09:50-0500 Weight 78.29 kg Alfredito [facility] Work Phone: Encounters Encounter Date Encounter Type Care Provider Facility Start: 06-17-2024 End: 06-17-2024 Office outpatient visit 25 minutes Daisha Max DO Work Phone: [facility] Comment on above: Liver lesion (Primar y Dx); Liver transplant recipient; High risk medication use; Therapeutic drug monitoring; 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) Start: 05-26-2024 End: 05-26-2024 ambulatory Evan Bolton RPh,PharmD [facility] Start: 05-26-2024 End: 05-26-2024 Patient encounter procedure Evan Bolton RPh,PharmD [facility] Start: 05-13-2024 End: 05-13-2024 ambulatory [facility] Start: 04-18-2024 End: 04-18-2024 ambulatory ZULY BRUNO Not Available Start: 03-24-2024 End: 03-24-2024 Patient encounter procedure Angel Carpio RPh,PharmD [facility] Start: 03-24-2024 End: 03-24-2024 ambulatory Angel Carpio RPh,PharmD [facility] [place] Start: 03-22-2024 End: 03-22-2024 ambulatory JOHNNA BRINK Not Available Start: 03-17-2024 End: 03-17-2024 ambulatory JOHNNA BRINK Not Available Start: 03-14-2024 End: 03-14-2024 ambulatory FIDELINA SANCHEZ Not Available Start: 03-10-2024 End: 03-10-2024 ambulatory JOHNNA BRINK Not Available Start: 03-08-2024 End: 03-08-2024 ambulatory JOHNNA BRINK Not Available Start: 03-03-2024 End: 03-03-2024 ambulatory JOHNNA BRINK Not Available Start: 03-02-2024 End: 03-02-2024 ambulatory Meka Munoz [facility] Start: 03-02-2024 End: 03-02-2024 Patient encounter procedure Meka Alexander [facility] Start: 03-01-2024 ambulatory ZULY BRUNO Facility: [facility] Start: 03-01-2024 End: 03-01-2024 ambulatory JOHNNA HOLLIDAY Not Available Start: 02-26-2024 [facility] Start: 02-26-2024 End: 02-26-2024 Office outpatient new 30 minutes Candie Almaguer MD Work Phone: [employer] Comment on above: Heart failure, diast olic, acute (Primary Dx) Start: 02-26-2024 [facility] Start: 02-25-2024 End: 02-25-2024 ambulatory FIDELINA DANIEL Not Available Start: 02-23-2024 End: 02-23-2024 ambulatory PALMA Star PALACIOS Not Available Start: 02-11-2024 End: 02-11-2024 [facility] Start: 01-16-2024 Encounter for other preprocedural examination KELVIN PACHECO [facility] Start: 01-16-2024 End: 01-23-2024 Evaluation and management of inpatient Kevin Prince MD Work Phone: [facility] Comment on above: Pleural effusion on right Start: 01-16-2024 End: 01-23-2024 Patient encounter status Kevin Prince MD Work Phone: [facility] Work Phone: Start: 01-12-2024 End: 01-12-2024 ambulatory Angel Calee RPh,PharmD [facility] [place] Start: 01-12-2024 End: 01-12-2024 Patient encounter procedure Angel Fete RPh,PharmD [facility] [place] Start: 01-08-2024 Clinisync Result Encounter Generic External Data Provider [facility] External Department Unsolicited Start: 01-08-2024 Clinisync Result Encounter Generic External Data Provider [facility] External Department Unsolicited Start: 01-06-2024 End: 01-06-2024 ambulatory ZULYTray TANNERHOLZ Not Available Start: 01-06-2024 End: 01-06-2024 Office outpatient visit 25 minutes Zuly Tannerjose e UNMANNED EQUIPMENT OPERATOR Work Phone: [facility] Comment on above: Bilateral lower extr emity [...] FLORESHOLZ Not Available Start: 10-06-2023 ambulatory Angel Fete RPh,PharmD [facility] [place] Start: 10-06-2023 Patient encounter procedure Angel Fete RPh,PharmD [facility] Start: 09-29-2023 [facility] Start: 09-23-2023 [facility]ulatory [facility] Start: 09-15-2023 ambulatory [facility] Start: 08-28-2023 End: 09-11-2023 Evaluation [...] disorders Start: 08-28-2023 ambulatory STEVE LATHAM Facility:[facility] Start: 08-19-2023 ambulatory Meka rueda [facility] Start: 08-19-2023 Patient encounter procedure Meka Munoz [facility] [place] Start: 06-12-2023 End: 06-12-2023 Office outpatient visit 25 minutes Steve Latham MBBS Work Phone: [facility] Comment on above: 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) Start: 06-12-2023 ambulatory SELF SELF Facility:[facility] Start: 06-10-2023 ambulatory Maren Hayeney RPh,PharmD Pharm[facility] [place] Start: 06-10-2023 Patient encounter procedure Maren Hayeney RPh,PharmD [facility] Start: 05-26-2023 ambulatory ZULY KIANA Facility: [facility] Start: 04-28-2023 End: 04-29-[address] DOCTOR EVANS Facility:[facility] Start: 03-12-2023 ambulatory Angel Fete RPh,PharmD [facility] Start: 03-12-2023 Patient encounter procedure Angel Fete RPh,PharmD [facility] [place] Start: 03-10-2023 ambulatory Angel Fete RPh,PharmD [facility] [place] Start: 03-10-2023 Patient encounter procedure Angel Fete RPh,PharmD [facility] [place] Start: 03-02-2023 End: 03-03-[address] DOCTOR EVANS Facility:[facility] Start: 01-16-2023 End: 01-16-2023 Office outpatient visit 25 minutes Daisha Max DO Work Phone: [facility] Comment on above: Abnormal blood [...] MD Work Phone: [facility] [place] Comment on above: BPH with obstruction /lower urinary tract symptoms (Primary Dx); Encounter for screening for malignant neoplasm of prostate Start: 08-28-2022 End: 08-29-2022 ambulatory ROB BRUNO Facility:[facility] Start: 08-14-2022 End: 08-15-[address] DOCTOR EVANS Facility:[facility] Start: 07-07-2022 End: 07-07-2022 Patient encounter procedure Ryan Yepez MD Work Phone: [facility] [place] Comment on above: Other hydronephrosis (Primary Dx); [...] MD Work Phone: [facility] [place] Comment on above: Other hydronephrosis (Primary Dx) [...] MD Work Phone: [id number] Comment on above: FAYE (acute kidney in jury) Start: 05-15-2022 End: 05-15-[address] GEORGE LAWRENCE Facility:[facility] Start: 05-11-2022 End: 05-11-[address] GEORGE LAWRENCE Facility:[facility] Start: 03-14-2022 ambulatory Comfort Rivera [facility] Work Phone: [facility] [place] Start: 03-14-2022 Patient encounter procedure Comfort Rivera [facility] Work Phone: [facility] [place] Start: 06-14-2021 End: 06-14-2021 ambulatory Comfort Rivera [facility] Work Phone: [facility] Start: 06-14-2021 Patient encounter procedure Comfort Rivera [facility] Work Phone: [facility] Start: 01-20-2020 End: 01-27-2020 Patient encounter procedure PEPE CASE Facility:[facility] Start: 01-06-2020 End: 01-07-2020 Patient encounter procedure RENA GUDINO [facility] Start: 01-06-2020 End: 01-06-2020 Subsequent hospital visit by physician [facility] Start: 10-24-2019 End: 10-25-2019 [facility] Start: 10-24-2019 End: 10-24-2019 Subsequent hospital visit by physician [facility] Start: 08-27-2019 End: 08-28-2019 [facility] Start: 08-27-2019 End: 08-27-2019 Subsequent hospital visit by physician [facility] Start: 08-08-2019 End: 08-09-2019 Patient encounter procedure [facility] Start: 08-08-2019 End: 08-08-2019 Subsequent hospital visit by physician [facility] Start: 08-03-2019 End: 08-04-2019 Patient encounter procedure [facility] Start: 08-03-2019 End: 08-03-2019 Subsequent hospital visit by physician [facility] Start: 08-01-2019 End: 08-02-2019 Patient encounter procedure [facility] Start: 08-01-2019 End: 08-01-2019 Subsequent hospital visit by physician [facility] Start: 06-10-2019 End: 06-11-2019 [facility] Start: 06-01-2019 End: 06-02-2019 Patient encounter procedure [facility] Start: 01-14-2019 End: 01-15-2019 Patient encounter procedure [facility] Start: 11-17-2018 End: 11-17-2018 [facility] Comment on above: Social Work Follow-u p Start: 10-19-2018 End: 10-19-[address] [facility] Pre Transplant Office Comment [...] Start: 10-13-2018 End: 10-13-2018 Patient encounter procedure [facility] Comment on above: Reschedule Outside Medical Allan rds Request Start: 10-12-2018 End: 10-12-2018 Patient encounter procedure Sophie Cary [facility] Pre Transplant Office Comment on above: Alcoholic cirrhosis, unspecified whether ascites present (Primary Dx); Pre-transplant evaluation for liver transplant Start: 10-12-2018 End: 10-12-2018 Office outpatient new 60 minutes Alfredito Restrepo Work Phone: [facility] Pre Transplant Office Comment on above: Alcoholic cirrhosis, unspecified whether ascites present; ESRD (end stage renal disease) on dialysis; Pre-transplant evaluation for liver transplant Start: 10-06-2018 End: 10-06-2018 Patient encounter procedure Yovani Orr Work Phone: Department of Radiology Comment on above: Canceled (Insurance Company Redirected Pt) Start: 10-05-2018 Patient encounter status Comfort Rivera [facility] Work Phone: [facility] Procedures Date Procedure Procedure Detail [...] above: Performed By: #### X M ####[place] [address] Start: 01-22-2024 Assay of magnesium Just in [...] Phone: Start: 01-20-2024 ITRACONAZOLE LEVEL Jennifer norbert Angel Alarcon [facility] Work Phone: Start: 01-20-2024 Oscillating positive expiratory [...] nos quantifica tion each organism Fidelina Alarcon [facility] Work Phone: Start: 01-18-2024 Echocardiography ZULY VANG Start: 01-18-2024 Echo tthrc r-t 2d w/wom-mode compl spec&colr d Arleis Mera MD Work Phone: Start: 01-18-2024 Assay [...] AURIS SCREEN BY PCR Carol Ann Capps FIRE EXTINGUISHER INSPECTOR-RAISE DRILL OPERATOR Work Phone: Start: 01-08-2024 ALL CBC [...] Phone: Start: 09-01-2023 Hepatic function panel Evan eKlly MD Work Phone: Start: 09-01-2023 Iadna nos [...] AURIS SCREEN BY PCR Carol Ann Capps FIRE EXTINGUISHER INSPECTOR-RAISE DRILL OPERATOR Work Phone: Start: 08-28-2023 CBC AND [...] above: Performed By: #### C MP #### [facility] [address] [address] [address] Dwight Waters Start: 07-07-2022 Rmvl nfros tube req fluoro guidance Ryan Yepez MD Work Phone: Start: 06-27-2022 Ct abdomen & pelvis w/o contrast material Evan Byrd MD Work Phone: Start: 06-12-2022 Culture bct isol&prs mptv id isolate ea urine Steev Farrari MBBS Work Phone: Start: 06-12-2022 EXTRA MICRO Steve S Nor i MBBS Work Phone: Start: 06-12-2022 Hemoglobin glycosylated a1c Steve S Yeison MBBS Work Phone: Start: 06-12-2022 Hepatic function panel Yovani Orr MD Work Phone: Start: 06-12-2022 URINALYSIS REFLEX TO CULTURE Steve Farrari MBBS Work Phone: Start: 05-20-2022 Urography antegrade [...] Start: 05-15-2022 LT BLUE TOP TUBE Vladislav lEizalde MD Work Phone: Start: 05-15-2022 MINT GREEN TOP TUBE Kain Elizalde MD Work Phone: Start: 05-15-2022 RAINBOW DRAW Vladislav sanches MD Work Phone: Start: 05-10-2020 H/O: liver recipient S/P liver trans plant Comfort Rivera [facility] Work Phone: Start: 04-08-2020 H/O: liver recipient Liver tra nsplant recipient Comfort Rivera [facility] Work Phone: Start: 01-06-2020 Potassium serum plasma/whole [...] JONNIEMANI Start: 08-03-2019 Hemoglobin glycosylated a1c Rob Kasmani Work Phone: Start: 08-01-2019 Blood count hemoglobin Rob Jonniemani Work Phone: Start: 07-25-2019 History of renal transplant De ceased-donor kidney transplant recipient Comfort Rivera [facility] Work Phone: Start: 06-10-2019 HEMOGLOBIN AND HEMAT OCRIT, BLOOD ROB JONNIEMANI Start: 06-01-2019 Blood count hemoglobin ROB JONNIEMANI Start: 03-22-2019 Lipid 1996 panel - S fabricio or Plasma Comfort Rivera [facility] Work Phone: Start: 01-14-2019 Potassium serum plasma/whole [...] 10-12-2018 End: 10-12-2018 Antibody rubeola Yovani Mejias [employer] Work Phone: Start: 10-12-2018 End: 10-12-2018 Antibody varicella-zoster Yovani Mejias [employer] Work Phone: Start: 10-12-2018 End: 10-12-2018 Assay of ethanol Yovani Orr Work Phone: Start: 10-12-2018 End: 10-12-2018 Assay of ferritin Yovani Mejias [employer] Work Phone: Start: 10-12-2018 End: 10-12-2018 Assay of iron Yovani Mejias [employer] Work Phone: Start: 10-12-2018 End: 10-12-2018 Assay of parathormone Yovani Orr Work Phone: Start: 10-12-2018 End: 10-12-2018 Assay of phosphatase alkaline Yovani Orr [employer] Phone: Start: 10-12-2018 End: 10-12-2018 Bilirubin total [...] End: 10-12-2018 Assay of ethanol Yovani Orr [employer] Phone: Start: 10-12-2018 End: 10-12-2018 Drug/substance definitive qual/quant nos 7/more Yovani Orr Work Phone: Start: 10-12-2018 End: 10-12-2018 Protein total xcpt refractometry urine Yovani Orr Work Phone: Start: 10-12-2018 End: 10-12-2018 VOLUME MEASURED Yovani Orr Work Phone: H/O: liver recipient Liver repla vida by transplant Steve Latham MBBS Work Phone: H/O: liver recipient Liver trans plant recipient Daisha Max DO Work Phone: H/O: liver recipient S/P liver transplant Generic Provider H/O: liver recipient Liver trans plant recipient Daisha Max DO Work Phone: History of renal transplant Kidn ey replaced by transplant Steve LEIGH Work Phone: History of renal transplant Dece [...] kidney transplant recipient Steve MORENOBS Work Phone: History of renal transplant Kidn ey replaced by transplant Rebeca Gutierrez FIRE EXTINGUISHER INSPECTOR-TANGLED YARN SPOOL STRAIGHTENER Work Phone: Plan of Treatment Date Care Activity Detail Author Start: 09-20-2029 Screening for malignant neoplasm of colon [facility] Start: 06-16-2025 End: 06-16-2025 Patient encounter procedure [facility] Start: 06-13-2025 Potassium [Moles/volume] in Serum or Plasma POTASSIUM [facility] Start: 05-23-2025 Potassium [Moles/volume] in Serum or Plasma POTASSIUM [facility] Start: 03-28-2025 Potassium [Moles/volume] in Serum or Plasma POTASSIUM [facility] Start: 03-21-2025 Potassium [Moles/volume] in Serum or Plasma POTASSIUM [facility] Start: 02-28-2025 Potassium [Moles/volume] in Serum or Plasma POTASSIUM [facility] Start: 01-23-2025 Potassium [Moles/volume] in Serum or Plasma POTASSIUM [facility] Start: 08-31-2024 Screening for malignant neoplasm of lung [facility] Start: 07-31-2024 Influenza vaccination INFLUENZA VACCINE (#1) [facility] Start: 06-17-2024 End: 06-17-2024 ambulatory [facility] Start: 06-17-2024 End: 06-17-2024 Patient encounter procedure [facility] Start: 03-22-2024 Fasting lipid profile LIPID SCREENING [facility] Start: 03-22-2024 Lipid panel [facility] Start: 02-26-2024 End: 02-26-2024 Patient encounter procedure 02/26/2024 9:30 AM EDT Office Visit [facility] [address] [place] [phone] Candie Almaguer MD [address] [place] [phone] [facility] Start: 02-11-2024 End: 02-11-2024 Patient encounter procedure 02/11/2024 10:30 AM EDT Office Visit [facility] [address] [place] [phone] Zuly Bruno NP [address] [place] [phone] [facility] Start: 02-09-2024 End: 02-09-2024 Telemedicine consultation with patient 02/09/2024 3:30 PM EDT Telemedicine Infectious Diseases Care [facility] [address] [place] [phone] Hakeem Alamo MD [address] [place] [address] Infectious Diseases [facility] Start: 01-15-2024 End: 01-15-2024 ambulatory [facility] Start: 01-15-2024 End: 01-15-2024 Patient encounter procedure [facility] Start: 01-06-2024 End: 01-06-2026 Echocardiogram 2D complete Echocardiogram 2D complete Echocardiography Routine DARLENE (obstructive sleep apnea) Primary hypertension (CMS/HCC) Bilateral lower extremity edema Shortness of breath Expected: 01/06/2024 (Approximate), Expires: 01/06/2026 [facility] Work Phone: Comment on above: Expected: 01/06/2024 (Approximate), Expi res: 01/06/2026 Start: 01-06-2024 End: 01-06-2024 Patient encounter procedure 01/06/2024 9:00 AM EST Office Visit [facility] [address] [place] [address] Zuly Bruno NP [address] [place] [phone] [facility] Start: 12-08-2023 End: 09-07-2024 CT Chest WO contrast [facility] Work Phone: Start: 12-01-2023 COVID-19 VACCINE (2 - Moderna risk series) COVID-19 VACCINE (2 - Moderna risk series) [facility] Start: 09-23-2023 End: 09-23-2023 ambulatory [facility] Start: 09-23-2023 End: 09-23-2023 Telemedicine consultation with patient 09/23/2023 4:00 PM EDT Telemedicine Infectious Diseases Care [facility] [address] [place] [phone] Hakeem Alamo MD [address] [place] [address] Infectious Diseases Care [facility] Start: 09-15-2023 End: 09-10-2024 ITRACONAZOLE LEVEL [facility] Start: 08-25-2023 End: 08-25-2024 ALLOSCREEN RECIPIENT (POST TX PRA) ALLOSCREEN RECIPIENT (POST TX PRA) Lab Routine Kidney replaced by transplant Aftercare following organ transplant Immunosuppressed status High risk medication use Other general symptoms and signs Abnormal blood chemistry Expected: 08/25/2023, Expires: 08/25/2024 [facility] Comment on above: Expected: 08/25/2023, Expires: Start: 07-31-2023 Influenza vaccination [facility] Start: 06-12-2023 End: 06-12-2023 Patient encounter procedure 06/12/2023 Office Visit Transplant Surgery Steve Latham MBBS [address] [place] [address] [facility] Start: 03-11-2023 End: 03-11-2023 Telemedicine consultation with patient 03/11/2023 Telemedicine Urology Ryan Yepez MD [address] [place] [address] [address] [place] [address] [facility] [place] Start: 01-16-2023 End: 01-16-2023 Patient encounter procedure 01/16/2023 Office Visit Transplant Surgery [facility] Start: 10-31-2022 End: 10-31-2022 Patient encounter procedure 10/31/2022 Office Visit Transplant Surgery Steve Latham MBBS [address] [place] [address] [facility] Start: 09-10-2022 End: 09-10-2023 PSA screening PSA, SCREENING Lab Routine BPH with obstruction/lower urinary tract symptoms Encounter for screening for malignant neoplasm of prostate Expected: 09/10/2022 (Approximate), Expires: 09/10/2023 [facility] Comment on above: Expected: 09/10/2022 (Approximate), Expi res: 09/10/2023 Start: 08-11-2022 End: 08-11-2022 Patient encounter procedure 08/11/2022 Office Visit Urology Ryan Yepez MD [address] [facility] [address] [place] [address] [facility] Start: 07-31-2022 Influenza vaccination [facility] Start: 07-07-2022 End: 07-07-2022 Patient encounter procedure 07/07/2022 Office Visit Urology Ryan Yepez MD [address] [facility] [address] [place] [address] [facility] Start: 07-07-2022 End: 07-07-2023 FLUORO IMAGING FOR UROLOGY [facility] Comment on above: Expected: 07/07/2022, Expires: 3 1 Occurrences starti ng 07/07/2022 until 07/07/2022 Start: 06-27-2022 End: 06-27-2022 Patient encounter procedure 06/27/2022 Office Visit Urology Ryan Yepez MD [address] [facility] [address] [place] [address] [facility] Start: 06-27-2022 End: 06-27-2023 Basic metabolic 2000 panel - Serum or Plasma BASIC METABOLIC PANEL Lab Routine Other hydronephrosis Expected: 06/27/2022, Expires: 06/27/2023 [facility] Comment on above: Expected: 06/27/2022, Expires: 3 Start: 06-27-2022 End: 06-27-2022 Patient encounter procedure 06/27/2022 Appointment Computerized Tomography Scan Ryan Yepez MD [address] [facility] [address] [place] [address] Department of Radiology Start: 06-15-2022 End: 05-16-2023 CT Abdomen and Pelvis WO contrast CT ABDOMEN/PELVIS WITHOUT CONTRAST Imaging Routine FAYE (acute kidney injury) Expected: 06/15/2022 (Approximate), Expires: 05/16/2023 [facility] Work Phone: Comment on above: Expected: 06/15/2022 (Approximate), Expi res: 05/16/2023 Start: 06-12-2022 End: 06-12-2022 Patient encounter procedure 06/12/2022 Office Visit Transplant Surgery Steve Latham MBBS [address] [place] [address] [facility] Start: 06-11-2022 End: 06-11-2023 BK VIRUS DNA QN, PCR, PLASMA BK VIRUS DNA QN, PCR, PLASMA Lab Routine Kidney replaced by transplant Liver replaced by transplant Abnormal blood chemistry Expected: 06/11/2022, Expires: 06/11/2023 [facility] Comment on above: Expected: 06/11/2022, Expires: Start: 06-04-2022 End: 06-04-2022 Patient encounter procedure 06/04/2022 Office Visit [facility]iology [facility] Start: 10-18-2021 End: 10-18-2021 Patient encounter procedure 10/18/2021 Office Visit Transplant Surgery Steve Latham MBBS [address] [place] [address] [facility] Start: 07-31-2021 Influenza vaccination INFLUENZA VACCINE (#1) [facility] Start: 07-26-2021 End: 07-26-2021 Patient encounter procedure 07/26/2021 Office Visit Transplant Surgery [facility] Start: 2021 Prostate specific antigen measurement [facility] Start: 2021 Screening for malignant neoplasm of lung LUNG CANCER SCREENING [facility] Start: 2021 Zoster vaccine hzv live for subcutaneous use ZOSTER (SHINGLES) VACCINE (1 of 2) [facility] Start: 09-20-2020 Colonoscopy COLORECTAL CANCER SCREENING DISCUSSION [facility] Start: 09-20-2020 Screening for malignant neoplasm of colon [facility] Start: 07-31-2019 Influenza vaccination Flu vaccine (#1) [place], [place] Start: 05-22-2019 Annual Wellness Visit (AWV) Annual Wellness Visit (AWV) [place], [place] Start: 04-18-2019 End: 10-19-2019 Ultrasonography of abdomen US ABDOMEN RUQ/LIVER/GB Routine Cirrhosis of liver without ascites, unspecified hepatic cirrhosis type Expected: 04/18/2019 (Approximate), Expires: 10/19/2019 [facility] Work Phone: Comment on above: Expected: 04/18/2019 (Approximate), Expi res: 10/19/2019 Start: 01-25-2019 End: 01-25-2019 Ambulatory 01/25/2019 Office Visit Gastroenterology Christin Elizabeth, FIRE EXTINGUISHER INSPECTOR-TANGLED YARN SPOOL STRAIGHTENER [address] [place] [address] Division of Gastroenterology and Hepatology Gavin Start: 11-19-2018 End: 11-19-2018 Ambulatory 11/19/2018 Appointment [facility] Start: 11-19-2018 End: 11-19-2018 Ambulatory [facility] Start: 10-19-2018 End: 10-19-2018 Ambulatory [...] Influenza vaccination INFLUENZA VACCINE (#1) [facility] Work Phone: Start: 2011 Fasting lipid profile LIPID SCREENING [facility] Work Phone: Start: 2011 Lipid screen Lipid screen [place], [place] Start: 1990 DTaP/Tdap/Td vaccine (1 - Tdap) DTaP/Tdap/Td vaccine (1 - Tdap) [place], [place] Start: 1990 Hepatitis B vaccination HEP B VACCINE (1 of 3 - 19+ 3-dose series) [facility] Start: 1990 Hepatitis B Vaccine (1 of 3 - Risk Recombivax 3-dose series) Hepatitis B Vaccine (1 of 3 - Risk Recombivax 3-dose series) [place], [place] Start: 1990 Third diphtheria, tetanus and acellular pertussis (DTaP) vaccination [facility] Start: 1990 Zoster vaccine hzv live for subcutaneous use ZOSTER (SHINGLES) VACCINE (1 of 2) [facility] Start: 1990 [facility] Start: 1989 Tetanus vaccination TETANUS [facility] Start: 1986 HIV screen HIV screen [place], [place] Start: 02-17-1984 HIV screening HIV SCREENING DISCUSSION [facility] Work Phone: Start: 1983 COVID-19 VACCINE (1) COVID-19 VACCINE (1) [facility] Start: 1982 DTaP/Tdap/Td vaccine (1 - Tdap) DTaP/Tdap/Td vaccine (1 - Tdap) [place], [place] Start: 1977 Pneumococcal 0-64 years Vaccine (1 of 3 - PCV13) Pneumococcal 0-64 years Vaccine (1 of 3 - PCV13) [place], [place] Start: 1977 PNEUMOCOCCAL VACCINE SERIES (1 - PCV) PNEUMOCOCCAL VACCINE SERIES (1 - PCV) [facility] Start: 1977 PNEUMOCOCCAL VACCINE SERIES (1 of 2 - PCV) PNEUMOCOCCAL VACCINE SERIES (1 of 2 - PCV) [facility] Start: 1977 [facility] Start: 02-17-1976 COVID-19 VACCINE (#1) COVID-19 VACCINE (#1) [facility] Start: 02-17-1976 [facility] Start: 1971 COVID-19 VACCINE (#1) COVID-19 VACCINE (#1) [facility] Start: 1971 Hepatitis B vaccination HEP B VACCINE (1 of 3 - 3-dose series) [facility] Start: 1971 Medicare Annual Wellness (AWV) Medicare Annual Wellness (AWV) [facility] Start: 1971 Screening for malignant neoplasm of colon [facility] Start: 1971 Tetanus vaccination [facility] BK VIRUS DNA QN, PCR , PLASMA BK VIRUS DNA QN, PCR, PLASMA Lab Routine Kidney replaced by transplant Liver replaced by transplant Abnormal blood chemistry 06/12/2022 3:38 PM EDT [facility] CALCULI, URINARY (KIDNEY STONE) CALCULI, URINARY (KIDNEY STONE) Fluids Routine 05/19/2022 8:16 AM EDT [facility] Work Phone: CANNABINOIDS, QUANT (URINE)THC CONFIRMATION CANNABINOIDS, QUANT (URINE)THC CONFIRMATION Routine Alcoholic cirrhosis, unspecified whether ascites present ESRD (end stage renal disease) on dialysis Pre-transplant evaluation for liver transplant 10/12/2018 12:57 PM [facility] Work Phone: End: 09-10-2024 CHEM 6 (LYTES, BUN CREA) [facility] EBV VCA IGG AB EBV VCA IGG AB R outine Alcoholic cirrhosis, unspecified whether ascites present ESRD (end stage renal disease) on dialysis Pre-transplant evaluation for liver transplant 10/12/2018 12:57 PM [facility] Work Phone: Fungus identified in Unspecified specimen by Culture [facility] HLA TYPING (SOLID ORGAN) HLA TYPING (SOLID ORGAN) Routine Alcoholic cirrhosis, unspecified whether ascites present ESRD (end stage renal disease) on dialysis Pre-transplant evaluation for liver transplant 10/12/2018 12:57 PM [facility] Work Phone: HSV 1 AND 2 IGG ANTIBODY HSV 1 AND 2 IGG ANTIBODY Routine Alcoholic cirrhosis, unspecified whether ascites present ESRD (end stage renal disease) on dialysis Pre-transplant evaluation for liver transplant 10/12/2018 12:57 PM [facility] Work Phone: MR Abdomen WO and W contrast IV MRI ABDOMEN WITH AND WITHOUT CONTRAST Imaging Routine Liver lesion Ordered: 06/17/2024 [facility] Comment on above: Ordered: 06/17/2024 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 specific culture [facility] PLACEMENT NEPHROSTOM Y CATHETER PERCUTANEOUS W/ IMAGE GUIDANCE PLACEMENT NEPHROSTOMY CATHETER PERCUTANEOUS W/ IMAGE GUIDANCE Imaging Routine Hydronephrosis due to obstruction of ureteral orifice FAYE (acute kidney injury) 05/17/2022 11:08 AM EDT [facility] HI POST VOID RESIDUAL HI POST VO ID RESIDUAL HI - OFFICE PERFORMED Routine BPH with obstruction/lower urinary tract symptoms Ordered: 09/10/2022 [facility] Comment on above: Ordered: 09/10/2022 PTH INTACT PTH INTACT Routi ne Alcoholic cirrhosis, unspecified whether ascites present ESRD (end stage renal disease) on dialysis Pre-transplant evaluation for liver transplant 10/12/2018 12:57 PM [facility] Work Phone: RUBEOLA IGG AB (IMMU NE STATUS) RUBEOLA IGG AB (IMMUNE STATUS) Routine Alcoholic cirrhosis, unspecified whether ascites present ESRD (end stage renal disease) on dialysis Pre-transplant evaluation for liver transplant 10/12/2018 12:57 PM [facility] Work Phone: End: 01-16-2024 Standard ECG ECG ECG Routine One Time for 1 Occurrences starting 01/16/2024 until 01/16/2024 [facility] Comment on above: One Time for 1 Occurrences starting 12/31 until 01/16/2024 End: 09-10-2024 TACROLIMUS LEVEL, TROUGH (PRE DRUG LEVEL) [facility] VARICELLA IGG AB (IM M STATUS) VARICELLA IGG AB (IMM STATUS) Routine Alcoholic cirrhosis, unspecified whether ascites present ESRD (end stage renal disease) on dialysis Pre-transplant evaluation for liver transplant 10/12/2018 12:57 PM EST [facility] Work Phone: Immunizations Immunization Date Immunization Notes Care Provider Zeeshan marquez 11-03-2023 influenza virus vacc ine, unspecified formulation Generic Provider [facility] 11-03-2023 Moderna SARS-CoV-2 50mcg/0.5mL Booster Generic Provider [facility] Payers Date Payer Category Payer Unknown [id number] 2019 Unknown [facility] [id number] 2019-Present [id number] .[id number] 2018 Medicaid MEDICAID [facility]ICAL [facility] DEPT OF JOB xxxxxxxxxxxx 2018-Present [phone] [address] [place] [address] xxxxxxxxxxxx [id number] .[id number] 2018 Medicaid MEDICAID MEDICAI D [id number] 2018-Present [address] [place] [address] [id number] [id number].3 .[id number] 2018 Medicaid [id number]. 1.13.172.2.7.3 .[id number] 2018 Medicare MEDICARE MEDICAR E PART A AND B xxxxxxxxxxx 2018-Present [phone] [address] [address] [place] [address] xxxxxxxxxxx 1.2.840.894088.1.13.239.2.7.3 .375327.315 2018 Medicare [id number] 2018 Medicare MEDICARE MEDICAR E A AND B [id number] 2018-Present [address] [place] [address] [id number] [id number].3 .[id number] 2018 Medicare [id number]. 1.13.172.2.7.3 .566175.315 1971 Unknown [id number] 2.16.840.1.177460.3.579.2.173 1971 Unknown [id number] 2.16.840.1.477700.3.579.2.173 1971 Unknown [id number] 2.16.840.1.860107.3.579.2.173 1971 Unknown [id number] 2.16.840.1.764823.3.579.2.173 1971 Unknown [id number] 2.16.840.1.308271.3.579.2.173 1971 Unknown [id number] 2.16.840.1.289705.3.579.2.173 1971 Unknown [id number] 2.16.840.1.123767.3.579.2.173 1971 Unknown [id number] 2.16.840.1.515708.3.579.2.173 1971 Unknown [id number] 2.16.840.1.294359.3.579.2.647 1971 Unknown [id number] 2.16.840.1.798096.3.579.2.593 1971 Unknown [id number] 2.16.840.1.339555.3.579.2.593 1971 Unknown [id number] 2.16.840.1.618249.3.579.2.593 1971 Unknown [id number] 2.16.840.1.949473.3.579.2.593 1971 Unknown [id number] 2.16.840.1.806003.3.579.2.593 1971 Unknown [id number] 2.16.840.1.233175.3.579.2.593 1971 Unknown [id number] 2.16.840.1.617136.3.579.2.593 1971 Unknown [id number] 2.16.840.1.017559.3.579.2.593 1971 Unknown [id number] 2.16.840.1.592301.3.579.2.593 1971 Unknown [id number] 2.16.840.1.833066.3.579.2.593 1971 Unknown [id number] 2.16.840.1.977724.3.579.2.593 1971 Unknown [id number] 2.16.840.1.570277.3.579.2.593 1971 Unknown [id number] 2.16.840.1.434600.3.579.2.593 1971 Unknown [id number] 2.16.840.1.865271.3.579.2.593 1971 Unknown [id number] 2.16.840.1.095541.3.579.2.593 1971 Unknown [id number] 2.16.840.1.139345.3.579.2.125 9 1971 Unknown [id number] 2.16.840.1.996401.3.579.2.125 9 1971 Unknown [id number] 2.16.840.1.557926.3.579.2.125 9 1971 Unknown [id number] 2.16.840.1.381041.3.579.2.125 9 1971 Unknown [id number] 2.16.840.1.050620.3.579.2.125 9 1971 Unknown [id number] 2.16.840.1.211138.3.579.2.125 9 1971 Unknown [id number] 2.16.840.1.378014.3.579.2.125 9 1971 Unknown [id number] 2.16.840.1.014278.3.579.2.125 9 1971 Unknown [id number] 2.16.840.1.551871.3.579.2.125 9 1971 Unknown [id number] 2.16.840.1.671185.3.579.2.125 9 1971 Unknown [id number] 2.16.840.1.495004.3.579.2.125 9 1971 Unknown [id number] 2.16.840.1.170066.3.579.2.125 9 1971 Unknown [id number] 2.16.840.1.009620.3.579.2.125 9 1971 Unknown [id number] 2.16.840.1.662087.3.579.2.125 9 1971 Unknown [id number] 2.16.840.1.727787.3.579.2.594 1971 Unknown [id number] 2.16.840.1.277280.3.579.2.594 1971 Unknown [id number] 2.16.840.1.347148.3.579.2.594 1971 Unknown [id number] 2.16.840.1.476936.3.579.2.594 1971 Unknown [id number] 2.16.840.1.353701.3.579.2.594 1971 Unknown [id number] 2.16.840.1.948665.3.579.2.594 1971 Unknown [id number] 2.16.840.1.080072.3.579.2.594 1971 Unknown [id number] 2.16.840.1.300157.3.579.2.594 1971 Unknown [id number] 2.16.840.1.357254.3.579.2.594 1971 Unknown [id number] 2.16.840.1.352560.3.579.2.594 1971 Unknown [id number] 2.16.840.1.757047.3.579.2.594 1971 Unknown [id number] 2.16840.1.235790.3.579.2.594 1959 Medicaid [id number] 1958 Medicare [id number] Social History Date Type Detail Facility Start: 07-19-2018 End: 10-19-2018 Tobacco smoking status NHIS Former smoker [facility] Start: 07-19-1988 End: 05-14-2018 History of tobacco use Current smoker [facility] Work Phone: Start: 07-19-1988 End: 05-14-2018 History of tobacco use Cigarette Smoker [facility] Work Phone: Start: 10-19-2018 End: 06-17-2024 Cigarettes smoked current (pack per day) - Reported [facility] End: 07-19-1994 History of tobacco use Chews Tobacco [facility] Work Phone: Start: 1970 Sex Assigned At Not on file [facility] Work Phone: Start: 11-03-2018 Alcohol intake Current non-drinker of alcohol (finding[place] Start: 06-22-2018 Alcohol Comment Hx of alcoholism [place], [place] Start: 11-03-2018 End: 06-17-2024 Alcohol intake No [facility] Start: 07-19-2018 Tobacco use and exposure Former user [facility] Start: 09-06-2020 End: 06-17-2024 Alcohol intake Ex-drinker (finding) [facility] Start: 07-19-2018 Alcohol Comment stopped 05/14/2018 [facility] Start: 05-05-2022 End: 01-16-2023 Exposure to SARS-CoV-2 (event) Not sure [facility] Start: 07-07-2018 Gender identity Identifies as male gender (finding) [facility] Start: 01-16-2022 Sexual orientation Heterosexual (finding) [facility] Start: 11-03-2023 Tobacco use and exposure [...] Dates [id number] Start: 05-23-2020 [id number] Start: 04-12-2020 [id number] [facility] Start: 05-17-2022 Comment on above: Description: Implant time-out completed by intra-procedural staff including this RN, industrial maintenance technician, and performing physician. The following [...] Personal health goal Clinical Notes 06-14-2021 to 06-17-2024 Daisha Max, - 06/17/2024 10:00 AM Jasper Garnica RN - 06/17/2024 10:00 AM Jesus Manuel Fair RN - 06/17/2024 10:00 AM EDTPatient InstructionsPatient InstructionsPatient Instructions Note Date & Type Note Facility 06-17-2024 History of Present illness Narrative -Referring Provider for today's consult: Self, Self -Primary Care Provider: Zuly Bruno History of Present Illness George Styles is a 54 y.o. 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 He has been admitted multiple times since his last appointment. Admitted to transplant Neph service in 08/2023 for disseminated histoplasmosis for which he is on Itraconazole for at least a year. This required significant titration of his tacrolimus. Then admitted for acute hypoxic respiratory failure due to a heart failure exacerbation thought to be due to high flow from his AVF which was ligated. Denies abdominal pain, fevers, chills, jaundice, scleral icterus, etc. Occasionally notes some intermittent LE edema when on his feet most of the days. Past Medical History Past Medical History: Diagnosis Date Acute renal failure CAD (coronary artery disease) Cirrhosis Dialysis patient T, Th, Sa- Started 06/01/2018 End stage renal disease 06/01/2018 Essential hypertension, benign Hepatic encephalopathy History of blood transfusion Liver cirrhosis Past Surgical History Past Surgical History: Procedure Laterality Date LIGATION ANGIOACCESS AVF Left 01/22/2024 Laterality: Left; Surgeon: Jyoti Bryant MD, PhD; Location: [facility] MAIN OR PLACEMENT NEPHROSTOMY CATHETER PERCUTANEOUS W/ IMAGE GUIDANCE 05/17/2022 Surgeon: Enzo Heart DO; Location: [facility] INTERVENTIONAL RADIOLOGY (VIR) LIVER TRANSPLANT, ORTHOTOPIC N/A 04/12/2020 Laterality: N/A; Surgeon: LU Palma; Location: [facility] SAME DAY SURGERY MAIN OR KIDNEY TRANSPLANT W/O [place]AGA NEPHRECTOMY N/A 04/12/2020 Laterality: N/A; Surgeon: LU Palma; Location: [facility] SAME DAY SURGERY MAIN OR [...] 05/14/2018 Years since quittin.0 Smokeless tobacco: Former Types: Chew Quit date: [...] counter going forward. faMOTIdine 20 MG tablet Take 1 tablet by mouth 2 times daily. Gabapentin 400 MG capsule Take 1 capsule by mouth at bedtime. Itraconazole 10 MG/ML Solution Take 10 mL by mouth every 12 hours. melatonin 3 MG tablet Take 1 tablet by mouth at bedtime as needed for Insomnia. Mycophenolate sodium (MYFORTIC) [address] tablet DR Take 1 tablet by mouth every 12 hours. ondansetron 4 MG tablet Take 1 tablet by mouth every 8 hours as needed for Nausea / Vomiting. polyethylene glycol 17 g Pack packet Take 1 packet by mouth daily as needed. Sulfamethoxazole-trimethoprim 800-160 MG per tablet Take 1 tablet by mouth three times a week. Tacrolimus 0.2 MG Pack Mix 1 packet (0.2 mg) as directed and take by mouth every Thursday and Thursday. Tamsulosin HCl 0.4 MG capsule Take 1 capsule by mouth daily. Torsemide 20 MG tablet Take 1 tablet by mouth daily. Review of Systems GENERAL: Negative for any nausea, vomiting, fevers, chills, or weight loss. NEUROLOGIC: Negative for any blurry vision, blind spots, double vision, facial asymmetry, dysphagia, dysarthria, hemiparesis, hemisensory deficits, vertigo, ataxia. EAR, NOSE, THROAT, NECK: Negative for any head trauma, neck trauma, neck stiffness, photophobia, phonophobia, sinusitis, rhinitis. CARDIAC: Negative for any chest pain, dyspnea on exertion, paroxysmal nocturnal dyspnea, +peripheral edema. PULMONARY: Negative for any shortness of [...] frequent infections or bleeding. Physical Exam Vitals: 06/17/24 0836 BP: 143/75 Pulse: 53 Temp: 97.4 F (36.3 C) Constitutional: Well developed, well [...] record. Lab Results Component Value Date SODIUM 142 06/13/2024 POTASSIUM 3.9 06/13/2024 CHLORIDE 106 06/13/2024 CO2 27.3 06/13/2024 BUN 16 06/13/2024 CREATSERUM 1.15 06/13/2024 Lab Results Component Value Date WBC 5.0 06/13/2024 HGB 15.3 06/13/2024 HCT 47.0 06/13/2024 PLATELET 245 06/13/2024 MCV 88.1 01/23/2024 Lab Results Component Value Date ALT 19 06/13/2024 AST 14 06/13/2024 GGT 20 06/13/2024 ALKPHOS 116 06/06/2024 BILITOTAL 0.7 06/13/2024 BILIDIRECT 0.2 06/13/2024 Explant Pathology Pathologic Diagnosis A. [place] liver, orthotopic liver transplant resection (1458 gram): [...] Trichrome stain shows no increased fibrosis Imaging Echocardiogram (05/20/2024): 1. Left ventricle is normal in size and exhibits normal systolic function. LVEF is 55%. 2. The right ventricle is mildly dilated and exhibits normal systolic function. 3. No significant valvular dysfunction. 4. Normal right-sided pressures. 5. Small mostly posterior pericardial effusion. CT A/P without IV contrast (01/17/2024): 1. Since 08/31/2023, resolution of previously seen abdominal lymphadenopathy. 2. New mild to moderate pericardial effusion. 3. Moderate to large right pleural effusion with complete atelectasis of the visualized right lower lobe and most of the middle lobe. Trace left pleural effusion. Liver Doppler (01/16/2024): 1. Patent liver transplant vasculature. 2. Liver transplant is mildly heterogeneous in echotexture with surface nodularity, correlate clinically for any evidence of cirrhosis. Indeterminate left lobe subcapsular hyperechoic foci. If clinically indicated, these could be further evaluated with a liver protocol MRI. 3. At least moderate right pleural effusion. Trace right upper quadrant ascites. Procedures: Colonoscopy (09/20/2019) - Diverticulosis - Fair prep, repeat recommended in 3-5years Assessment In summary, George Styles is a 54 y.o.male with a history of EtOH cirrhosis and CKD from hypertensive nephrosclerosis s/p DCD SLK on 04/13/2020. HLA mismatch was 1A, 2B, 1DR. Prior to transplant, the cPRA of the recipient was 0%. Donor KDPI 9%. 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 He maintains excellent function of his transplanted liver. IS: Tacrolimus 0.5mg every Thursday and Thursday (1.5, 06/13/2024) Mycophenolate 360 mg BID Plan - IS as noted above. Increase Tacro 0.5mg to MWF. - Continue laboratory monitoring per protocol. - He remains on Itraconazole for at least a year for management of disseminated histoplasmosis. - Recommend MRI abdomen with and without contrast to follow up liver doppler abnormalities noted during recent hospitalization. - Incisional hernia: Would like to defer repair at this time. Discussed signs of incarcerated hernia that would prompt more urgent eval. - Health maintenance: annual Derm (encourages to reschedule which he prefers to do locally), lipids every 6 months, annual spot prot/cr ratio, DEXA every 2 years, TSH, vitamin D which can be arranged through his primary care physicians. - Last colonoscopy 2018, repeat due 3-5 years given inadequate prep. He prefers to complete this locally and will contact his local provider. - Continue follow up with transplant Nephrology - Follow up in 1 year. Daisha Max DO Chief Information Security Officer Gastroenterology, Hepatology and Nutrition [facility] Pager: [phone] Images from the original note were not included. 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 Tacrolimus 0.2 MG Pack Mix 1 packet (0.2 mg) as directed and take by mouth every Thursday and Thursday. I/S levels: Lab Results Component Value Date TACROLIMUS 7.0 01/23/2024 TACROLIMUS 7.9 01/22/2024 TACROLIMUS 7.2 01/21/2024 TACROTRGHMAN 1.5 06/13/2024 TACROTRGHMAN 1.9 06/06/2024 TACROTRGHMAN 2.0 05/30/2024 CHEMISTRY: Lab Results Component Value Date CREATSERUM 1.15 06/13/2024 CREATSERUM 1.21 06/06/2024 CREATSERUM 1.19 05/30/2024 HEMATOLOGY: Lab Results Component Value Date WBC 5.0 06/13/2024 WBC 5.1 06/06/2024 WBC 5.0 05/30/2024 Lab Results Component Value Date HGB 15.3 06/13/2024 HGB 15.3 06/06/2024 HGB 14.4 05/30/2024 IMMUNOLOGY: Lab Results Component Value Date CMVPCR negative 09/14/2023 CMVPCR Negative 09/02/2023 CMVPCR Negative 09/02/2023 EBVBYPCR <1,000 01/19/2024 EBVBYPCR <1,000 05/12/2020 EBVDNAVLME negative 10/30/2023 EBVDNAVLME 113 09/14/2023 EBVDNAVLME negative 08/17/2023 BKVIRALP <500 06/12/2022 BKVIRALP <500 03/15/2021 BKVIRALP <500 05/12/2020 COORDINATOR NOTES: - LFT's Stable - CR Stable - Last Tac level 1.9 - Tac levels low. On Itraconazole. OnTac 0.2 mg packet twice a week. Can we go to 3 times a week? - Follows with ID for Disseminated histoplasmosis . On Itraconozole. Will need to remain for 1 year Images from the original note were not included. Nursing Assessment In Clinic Patient is accompanied to clinic today by: self Did patient require a wheelchair or medical transport for appointment: no Is patient employed: no (Needed for [employer] forms) VITALS BP Readings from Last 3 Encounters: 06/17/24 143/75 06/17/24 143/75 02/26/24 113/56 Pulse Readings from Last 3 Encounters: 06/17/24 53 06/17/24 53 02/26/24 65 Wt Readings from Last 6 Encounters: 06/17/24 85.2 kg (187 lb 14.4 oz) 06/17/24 85.2 kg (187 lb 14.4 oz) 02/26/24 83.7 kg (184 lb 8 oz) 01/23/24 89.6 kg (197 lb 8.5 oz) 09/21/23 93 kg (205 lb) 09/10/23 92.7 kg (204 lb 4.8 oz) Body mass index is 29.43 kg/m . Lab Results Component Value Date GLUCOSE 98 06/13/2024 Lab Results Component Value Date HGBA1C 6.0 (H) 06/12/2022 IMMUNOSUPPRESSION Current Immunosuppressive Medication(s) Immunosuppressive Agents Mycophenolate sodium (MYFORTIC) [address] tablet DR Take 1 tablet by mouth every 12 hours. Tacrolimus 0.2 MG Pack Mix 1 packet (0.2 mg) as directed and take by mouth every Thursday and Thursday. PREFERRED LAB AND PHARMACY: None Specified [id number] [place] [address] - [address] [facility] [address] [facility] [address] [facility] [address] [facility] [address] [id number] [place] [address] [address] [facility] [address] [facility] [address] [facility] [address], [address] [place] [address] ROS and SCREEN: Chest Pain: negative Cough: negative SOB: negative Abd Pain: negative Nausea: negative Vomiting: negative Diarrhea: negative Constipation: negative Dysuria: negative Edema: positive - some in hand- sometimes in his feet and legs if he sits for a long periods or is on his feet for a long period Tremors: positive - mild Headaches: positive Wound issues: negative Any diagnosis of cancer/malignancy (any type) in the last year: no Do you follow with a Car Supplier? yes Do you have a Primary Care provider? yes Have you been seen in the last 12 months? yes (If not seen within the last year please advise patient to schedule a follow up appointment to remain current) Alcohol consumption: no Cigarette smoking, smokeless tobacco or vaping/e-cigarette use: no Marijuana (any form), CBD oil or street drug use: no QUESTIONS OR CONCERNS TO ADDRESS WITH PHYSICIAN: documented in this encounter [facility] 06-17-2024 Instructions Ashlee Fair RN - 06/17/2024 10:00 AM EDT - No medication changes from a liver standpoint - A MRI Abdomen has been ordered today. Please call central scheduling at [phone] to schedule or take paper copy to your local hospital - Return to clinic 06/16/2025 TRANSPLANT HEPATOLOGY 3, [facility] as scheduled documented in this encounter [facility] 06-17-2024 History of Present illness Narrative Images from the original note were not included. George Styles is a 54 y.o. 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 No longer follows with a local motorcycle riding instructor. History of Present Illness: Since George was most recently evaluated in clinic on 06/12/2023 Admission 08/28-09/11/2023 Histoplasma/Blastomyces ended up returning positive and thus patient was started on amphotericin B and itraconozaole Admission 01/16-01/23/2024 cardiac failure with moderate right sided pleural effusion and moderate pericardial effusion 01/22/2024 ligation left AVF Notable(s) since transplant: 05/17/2022-09/10/2022 nephrostomy tube due to concern for ureteral stone Review of Systems Constitutional: negative for fever or fatigue Cardiovascular: negative shortness of breath on exertion or swelling Gastrointestinal: negative for diarrhea, heartburn, vomiting +nausea in the evening Genitourinary: negative for dysuria Working for income: Not working due to disability Physical Exam: Vital Signs: Blood pressure 143/75, pulse 53, temperature 97.4 F (36.3 C), temperature source Temporal, weight 85.2 kg (187 lb 14.4 oz). Body mass index is 29.43 kg/m . Cardiovascular: no swelling Neuro: no [...] counter going forward. faMOTIdine 20 MG tablet Take 1 tablet by mouth 2 times daily. Gabapentin 400 MG capsule Take 1 capsule by mouth at bedtime. Itraconazole 10 MG/ML Solution Take 10 mL by mouth every 12 hours. melatonin 3 MG tablet Take 1 tablet by mouth at bedtime as needed for Insomnia. Mycophenolate sodium (MYFORTIC) [address] tablet DR Take 1 tablet by mouth every 12 hours. ondansetron 4 MG tablet Take 1 tablet by mouth every 8 hours as needed for Nausea / Vomiting. polyethylene glycol 17 g Pack packet Take 1 packet by mouth daily as needed. Sulfamethoxazole-trimethoprim 800-160 MG per tablet Take 1 tablet by mouth three times a week. Tacrolimus 0.2 MG Pack Mix 1 packet (0.2 mg) as directed and take by mouth every Thursday and Thursday. Tamsulosin HCl 0.4 MG capsule Take 1 capsule by mouth daily. Torsemide 20 MG tablet Take 1 tablet by mouth daily. Labs: Lab Results Component Value Date WBC 5.0 06/13/2024 HGB 15.3 06/13/2024 HCT 47.0 06/13/2024 PLATELET 245 06/13/2024 Lab Results Component Value Date SODIUM 142 06/13/2024 CHLORIDE 106 06/13/2024 BUN 16 06/13/2024 POTASSIUM 3.9 06/13/2024 CREATSERUM 1.15 06/13/2024 GLUCOSE 98 06/13/2024 Prot/Creat Ratio Date Value Ref Range Status 06/13/2024 0.2 Final Lab Results Component Value Date TACROLIMUS 1.9 06/06/2024 Current Immunosuppressive Medication(s) Immunosuppressive Agents Mycophenolate sodium (MYFORTIC) [address] tablet DR Take 1 tablet by mouth every 12 hours. Tacrolimus 0.2 MG Pack Mix 1 packet (0.2 mg) as directed and take by mouth every Thursday and Thursday. Assessment and Recommendations Kidney transplant Tacrolimus - increase to 0.2 mg packet three time per day; goal 3 to 5 ng/dL ; when the itraconazole stops 09/03/2024, reduce to 0.5 mg twice daily. 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 Following with ID. Glycemic Control - diet controlled Prescriptions for immunosuppression medications were sent electronically and labs were ordered. Mr. Styles has been asked to return to the clinic in 1 year and labs to be drawn every 3 month(s) however we will see the patient earlier should the need arise. The data reviewed and analyzed for the above problems included medical records and lab results. Rebeca Gutierrez MSN, RN, FIRE EXTINGUISHER INSPECTOR-BC, CCTN Certified Nurse Practitioner [facility] [address] [facility] [address] documented in this encounter [facility] 06-17-2024 Instructions JEANNA Hess - 06/17/2024 9:30 AM EDT Tacrolimus - increase to 0.2 mg packet three time per day; goal 3 to 5 ng/dL ; when the itraconazole stops 09/03/2024, reduce to 0.5 mg twice daily. Once your tacrolimus level is 3-5 ng/dL, you may reduce labs to every other week. documented in this encounter [facility] 05-26-2024 History of Present illness Narrative [facility]RE[facility]: Call Information: Date and Time of Contact: 05/26/2024 4:35 PM Method of Contact: By Phone Contact Type: Prescriptions Contactor: [facility] Contactee: Patient Contact Outcome: Left message and Follow-up Contact Info: Specialty ([place]) [phone] Jakob [phone] [facility] [phone] David [phone] Bedside Delivery ([facility]) [phone] [facility]REACH [facility]: Call Information: Date and Time of Contact: 05/30/2024 4:52 PM Method of Contact: By Phone Contact Type: Prescriptions Contactor: Patient Contactee: [facility] Shipping/Pickup: Medicare B Refill?: No Medication Name: Myco sod 360mg, Prograf 0.2mg Delivery Method: Ship Delivery Location: Home Signature Required: No Receive/Pickup Date: 06/06/2024 Shipping Address: [address] [place] [address] Contact Info: Specialty ([place]) [phone] Jakob [phone] [facility] [phone] David [phone] Bedside Delivery ([facility]) [phone] documented in [facility] Subjective George Styles is a 54 [...] , Rfl: t (more content not included)... [facility] 03-24-2024 History of Present illness Narrative [facility] RX OUTREACH ADVANCED: Call Information: Date and Time of Contact: 03/24/2024 4:14 PM Method of Contact: By Phone Contact Type: Prescriptions Contactor: [facility] OP Contactee: Patient Contact Outcome: Left message Shipping/Pickup: Medication Name: Prograf 0.2mg pack Contact Info: Specialty ([place]) [phone] [facility] [phone] [facility] [phone] David [phone] Bedside Delivery ([facility]) [phone] [facility] OP RX OUTREACH ADVANCED: Call Information: Date and Time of Contact: 03/28/2024 3:58 PM Method of Contact: By Phone Contact Type: Prescriptions Contactor: [facility] OP Contactee: Patient Contact Outcome: Left message and Call back later Shipping/Pickup: Medication Name: Mycophenolate, prograf Contact Info: Specialty ([place]) [phone] [facility] [phone] [facility] [phone] David [phone] Bedside Delivery ([facility]) [phone] [facility] OP RX OUTREACH ADVANCED: Call Information: Method of Contact: By Phone Contact Type: Prescriptions Contactor: Patient Contactee: [facility] OP Shipping/Pickup: Medicare B Refill?: No Medication Name: Mycopheolate 360mg and Prograf Delivery Method: Ship Delivery Location: Home Signature Required: No Receive/Pickup Date: 04/04/2024 Shipping Address: [address] [place] [address] [address] Contact Info: Specialty ([place]) [phone] [facility] [phone] [facility] [phone] David [phone] Bedside Delivery ([facility]) [phone] documented in this encounter [facility] 03-24-2024 History of Present illness Narrative [facility] RX OUTREACH ADVANCED: Call Information: Date and Time of Contact: 03/24/2024 4:14 PM Method of Contact: By Phone Contact Type: Prescriptions Contactor: [facility] OP Contactee: Patient Contact Outcome: Left message Shipping/Pickup: Medication Name: Prograf 0.2mg pack Contact Info: Specialty ([place]) [phone] [facility] [phone] [facility] [phone] David [phone] Bedside Delivery ([facility]) [phone] [facility] OP RX OUTREACH ADVANCED: Call Information: Date and Time of Contact: 03/28/2024 3:58 PM Method of Contact: By Phone Contact Type: Prescriptions Contactor: [facility] OP Contactee: Patient Contact Outcome: Left message and Call back later Shipping/Pickup: Medication Name: Mycophenolate, prograf Contact Info: Specialty ([place]) [phone] [facility] [phone] [facility] [phone] David [phone] Bedside Delivery ([facility]) [phone] [facility] OP RX OUTREACH ADVANCED: Call Information: Method of Contact: By Phone Contact Type: Prescriptions Contactor: Patient Contactee: [facility] OP Shipping/Pickup: Medicare B Refill?: No Medication Name: Mycopheolate 360mg and Prograf Delivery Method: Ship Delivery Location: Home Signature Required: No Receive/Pickup Date: 04/04/2024 Shipping Address: [address] [place] [address] [address] Contact Info: Specialty ([place]) [phone] [facility] [phone] [facility] [phone] David [phone] Bedside Delivery ([facility]) [phone] [facility] OP RX OUTREACH ADVANCED: Pre-Verification/Specialty Assessment/Disease [...] Within normal limits Contact Info: Specialty ([place]) [phone] Jakob [phone] [facility] [phone] David [phone] Bedside Delivery ([facility]) [phone] documented in this encounter [facility] 03-02-2024 History of Present illness [...] del of broth Contact Info: Specialty ([place]) [phone] [facility] [phone] [facility] [phone] David [phone] Bedside Delivery ([facility]) [phone] [facility] OP RX OUTREACH ADVANCED: Call Information: Date and Time of Contact: 03/02/2024 3:49 PM Method of Contact: By Phone Contact Type: Prescriptions Contactor: [facility] OP Contactee: Patient Contact Outcome: Left message and Follow-up Shipping/Pickup: Medication Name: Myco 360mg and Prograf 0.2mg Contact Info: Specialty ([place]) [phone] [facility] [phone] [facility] [phone] David [phone] Bedside Delivery ([facility]) [phone] [facility] RX OUTREACH ADVANCED: Call Information: Date and Time of Contact: 03/02/2024 4:08 PM Method of Contact: By Phone Contact Type: Prescriptions Contactor: [facility] OP Contactee: Patient Shipping/Pickup: Medicare B Refill?: No Medication Name: Myco 360 / prograf 0.2 Delivery Method: Ship Delivery Location: Home Signature Required: No Receive/Pickup Date: 03/03/2024 Shipping Address: [address] [place] [address] 179 Contact Info: Specialty ([place]) [phone] [facility] [phone] [facility] [phone] David [phone] Bedside Delivery ([facility]) [phone] documented in this encounter [facility] 02-26-2024 History of Present illness [...] presents to the HF Clinic at the [facility] on 02/26/2024 for initial evaluation of [...] Jyoti Bryant MD, PhD; Location: [facility] MAIN OR PLACEMENT NEPHROSTOMY CATHETER PERCUTANEOUS W/ IMAGE GUIDANCE 05/17/2022 Surgeon: Enzo Heart DO; Location: [facility] INTERVENTIONAL RADIOLOGY (VIR) LIVER TRANSPLANT, ORTHOTOPIC N/A 04/12/2020 Laterality: N/A; Surgeon: LU Palma; Location: [facility] SAME DAY SURGERY MAIN OR KIDNEY TRANSPLANT W/O ONONDAGA NEPHRECTOMY N/A 04/12/2020 Laterality: N/A; Surgeon: LU Palma; Location: [facility] SAME DAY SURGERY MAIN OR [...] qd Antithrombotic: no Statin: no ICD: NA RN CHILD: NA CV Test results: ECHOCARDIOGRAM 01/18/2024 (Final) [...] will be BP control. Candie Almaguer M.D. comb capper Advanced Heart Failure Program Division of Cardiovascular Medicine [facility] [email or web address] [phone] fax [phone] documented in this encounter [facility] 02-26-2024 Instructions Marsha Mckeon RN - 02/26/2024 9:30 AM EDT The following instructions were given today: Labs today Follow up with Dr. Almaguer as needed. Your after visit summary (AVS) is viewable in [facility] My Chart. Call RN if you have cardiac questions/concerns M-F 8 to 4:30 ; office # [phone], option 6, then option 2. Guidelines for home management: 1. Continue to monitor weight first thing each morning. 2. Report to the CHF CLINIC ([phone]) any significant weight change. Remember that weight [...] labs/tests run outside of the [facility] and you do not hear from us 1-2 days after they are performed, you must call us to ensure we received the results. Office fax # [phone]. No news does not necessarily mean that your tests are normal, it could mean we did not get the results. For questions/updates: please provide your name with spelling, date of and question or update All calls are prioritized and responses researched, if possible, prior to calls being returned. Call Scheduling for any appointment/procedure verification or changes [phone], option 7 or [facility] Sched[facility] at [phone], option 1. documented in this encounter [facility] 01-23-2024 Nurse Note Jakob wrap [...] understanding on picking [facility] needed [facility] as listed on discharge summary. Patient denies any unanswered questions at this time. Patient has been discharged with all of their belongings, transported via wheelchair on oxygen to front entrance for brother to transport home on home oxygen supply. [facility] 01-23-2024 Miscellaneous Notes Jakob wrap [...] understanding on picking up needed prescriptions at [facility] as listed on discharge summary. 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] POST OPERATIVE DIAGNOSIS Post-Op Diagnosis Codes: * High output congestive heart failure [I50.83] PROCEDURE PERFORMED Procedure(s) (LRB): LIGATION ANGIOACCESS AVF (Left) Resection of large aneurysmic vein PRIMARY CLOSURE Yes INTRAOPERATIVE FINDINGS No significant abnormalities SURGEON Surgeons and Role: * Jyoti Bryant MD, PhD - Primary ANESTHESIOLOGIST Anesthesiologist: Celena Tiwari MD; Kehinde Gutierrez MD KNITTER MECHANIC: David Jasso APRN-KNITTER MECHANIC Sociology Professor Assisting: Mini Khan MD SURGICAL STAFF Customer Program Specialist: Zoila Lawrence RN Relief Customer Program Specialist: Marimar Saravia RN Relief Scrub: Briseyda Self [...] Axillary block. SURGEON(S): Jyoti Bryant MD, PHD SUPPLY CHAIN LOGISTICS MANAGER: Mynor Fall MD ESTIMATED BLOOD LOSS: [...] Jyoti Bryant MD, PHD ATTENDING SHANNON/Constanza JOB: [id number] DOC: [id number] Patient has been asleep this shift. He [...] overnight coverage, Jasper Gastelum MD, via pager #[phone] Pt- George Styles. Smith 1082. TM1. Was wondering if he can have his Melatonin order increased to 6mg. Per pt, he usually takes 8mg at home. -SAMI Duffy #[phone] Tati Charles RN Internal Medicine Daily Progress Note Patient: George Styles, 1970, [id number] Physician: Arelis Mera MD, PGY3, Pager #[phone], TM1 service Assessment/Plan: George Styles is a [...] Mera MD Mr. Styles was admitted to [address] [place] [address]. On admission to [facility], from outside facility a dual RN initial assessment of skin condition was performed by Izzy Gutierrez RN and Leroy Singleton RN. Skin Assessment: Skin within defined limits:Yes Jose Score: 20 Wound Vision Technical Instructor images obtained: No LDA Added: No Based [...] when available. documented in this encounter [facility] 01-23-2024 Nurse Note Home Oxygen [...] at 4L of oxygen is also required.) [facility] 01-23-2024 History of Present illness [...] Daily Kelvin Pacheco MD, MBBS professor of languages Transplant nephrology Surgery Post-Op Check Note George [...] monitor Leonel Harris DO General Surgery Pager [phone] CM went to bedside to talk with patient. Patient states he has home oxygen through [employer]. He uses 2.5 LNC around the clock. Patient states his brother will bring a tank for discharge. Anticipate patient will discharge tomorrow AM. Brother updated. Girish Oro RN, BSN Clinical Binding Nicker Please note that I am a float case reviewer and may not cover the same service every day. Please call the main Case Management office at [phone] for up-to-date coverage. Verified patients identity using [...] Daily Progress Note Patient: George Styles, 1970, [id number] Physician: Yury Ozuna MD, PGY1, Pager #[phone], TM1 service Assessment/Plan: George Styles is a [...] with the Nutrition plan outlined in the [facility] note. DVT prophylaxis with lovenox Diet DIET HEART HEALTHY - 4 GM SODIUM Disposition: home pending clinical improvement and evaluation Code status is Full Code Discussed with team and attending, Kelvin Pacheco MD, MBAPOORVA , on rounds. Signed, Yury Ozuna MD [...] note. Kelvin Pacheco MD, MBBS professor of languages Transplant nephrology Patient seen and examined at [...] AC Kelvin Pacheco MD, LU professor of languages Transplant nephrology Images from the original note were not included. Internal Medicine Daily Progress Note Patient: George Styles, 1970, [id number] Physician: Yury Ozuna MD, PGY1, Pager #[phone], LU1 service Assessment/Plan: George Styles is a 53 [...] with the Nutrition plan outlined in the [facility] note. DVT prophylaxis with lovenox [...] further questions. Name: Heidy Chatman Phone #: [phone] Date/Time: 01/19/2024 12:08 PM Time Spent: 15 minutes Associated attestation - Dorian Fidelina Ortiz [facility] - 01/19/2024 12:41 PM EST Department of Pharmacy Admission Medication Reconciliation Note Patient: George Styles Room/Bed: 1082/A I have reviewed the home medication list with the Triage Technician. The home medication list status is: complete. All changes to the home medication list have been updated in [facility]IS. Updated SUPERVISOR DOCK Med List: Prior to Admission Medications Prescriptions [...] questions. Name: Fidelina Alarcon RPH Phone #: [phone] Date/Time: 01/19/2024 12:41 PM Internal Medicine Daily Progress Note Patient: George Styles, 1970, [id number] Physician: Yury Ozuna MD, PGY1, Pager #[phone], DH8 service Assessment/Plan: Acute Hypoxic Respiratory Insufficiency GARCIA, [...] with the Nutrition plan outlined in the [facility] note. DVT prophylaxis with lovenox [...] Daily Kelvin Pacheco MD, MBBS professor of languages Transplant nephrology Internal Medicine Daily Progress Note Patient: George Styles, 1970, [id number] Physician: Yury Ozuna MD, PGY1, Pager #[phone], WZ8 service Assessment/Plan: Updates: - continued diuresis with [...] volume overload as etiology, discontinue CTPE and EJNSEN duplex Holding off on antibiotics given no [...] with the Nutrition plan outlined in the [facility] note. DVT prophylaxis with lovenox [...] nasal cannula (01/18/24 0925) Flow (L/min): 4 (01/18/24 0925) Gen: NAD HENT: NCAT, EOMI, MMM Cardio: [...] note. Kelvin Pacheco MD, LU professor of languages Transplant nephrology Pt known to operation supervisor from previous admissions. Provided emotional and spiritual support. Patient shared about: family support, medical course Field Broomer provided: - Supportive presence - Active listening - Validation of feelings/emotions Patient encouraged to request a operation supervisor as needed. Chaplains are available in-house 24 hours a day and 7 days a week. For urgent matters in [facility], please page [phone]. If the request is not urgent, please enter a consult. Consults are responded to within 24 hours. Senior Staff Field Broomer Angie Singh Mdiv, [facility] [phone] [email or web address] On-call TYLOR: score caller David: 22/06 Pager TYLOR,APOORVA, and Brock Hernandez Pager [phone] 01/18/24 1342 Clinical Encounter Type Visited With Patient Visit Type Introduction Pastoral Time Spent 15 min Referral Other (See Comment) (rounding) Spiritual Assessment Emotional Observation Coping well;Anxiety Hope Observation Specific hope focus Support Observation By Family Interventions Provided Active listening;Supportive presence Facilitated Verbalization of feelings;Identifying support system;Identifying Sources of spiritual well-being Explored Expectations;Treatment decisions Color Straining Bag Washer Education Color Straining Bag Washer Service Available Yes Educated Patient Outcomes Patient [...] interaction. Name: Fidelina Alarcon RPH Phone #: [phone] Date/Time: 01/18/2024 9:56 AM Discharge Planning Patient [...] Yes Name and Contact information: Gian Styles ([phone]) Would you like to add additional adult [...] Bruno CNP as PCP - General Evan White DO as Infectious Disease (Infectious Disease) Dr [...] oxygen?: Yes Oxygen Provider and Contact : FareyeFlow?: Order for oxygen use?: unknown at this [...] patient on Anticoagulation? : No [id number] [place] [address] - [address] [facility] [address] [facility] [address] Shank Stapler Does the patient or sales donor recruitment representative express financial concerns? : No Employed?: Disabled Coping/Stress Concerns about patient s coping and stress?: No Concerns about patient s caregiver s coping and stress?: No Values and Beliefs Cultural or sabianism practices that may impact discharge planning and/or [...] Plan 1. Identified self and role as Binding Nicker. 2. Confirmed and updated demographics and treatment team. 3. Binding Nicker will continue to follow with medical team for any other additional discharge needs. Kasandra DON RN [facility] [phone] *Please note I am float and work Thursday and Thursday every other week. Please call [phone] for assist in my absence. Internal Medicine Daily Progress Note Patient: George Styles, 1970, [id number] Physician: Yury Ozuna MD, PGY1, Pager #[phone], TM4 service Assessment/Plan: Updates: - continue diuresis with [...] ordered 2D echo. Kevin Prince MD, MADISONN Chief Information Security Officer of Clinical Medicine [facility] documented in this encounter [facility] 01-23-2024 Plan of care note [...] Symptoms (Acute Pain): verbalization of pain descriptors [facility] Discharge instructions Arelis Mera MD [...] your doctor for further instructions. Please call [phone], Option 1 or [phone] to schedule your appointment with the Heart Failure Clinic. Arelis Mera MD - 01/22/2024 3:08 PM EST You can change your dressing 48 hours from the procedure The following attachments cannot be sent through Care Everywhere.Heart Failure: Avoiding Triggers (Bruneian)Heart Failure: Limiting Sodium (Bruneian)Pain and Pain Control ([facility]) (Bruneian)documented in this encounter [facility] 01-22-2024 Surgery Postoperative evaluation and management note George Styles ([id number]) PRE OPERATIVE DIAGNOSIS High output congestive heart failure [I50.83] POST OPERATIVE DIAGNOSIS Post-Op Diagnosis Codes: * High output congestive heart failure [I50.83] PROCEDURE PERFORMED Procedure(s) (LRB): LIGATION ANGIOACCESS AVF (Left) Resection of large aneurysmic vein PRIMARY CLOSURE Yes INTRAOPERATIVE FINDINGS No significant abnormalities SURGEON Surgeons and Role: * Jyoti Bryant MD, PhD - Primary ANESTHESIOLOGIST Anesthesiologist: Celena Tiwari MD; Kehinde Gutierrez MD KNITTER MECHANIC: David Jasso APRN-KNITTER MECHANIC Sociology Professor Assisting: Mini Khan MD SURGICAL STAFF Customer Program Specialist: Zoila Lawrence RN Relief Customer Program Specialist: Marimar Saravia RN Relief Scrub: Briseyda Self Scrub Person: Cinda Mai RN Resident Assisting: Leonel Harris DO Fellow: Miki Mcgowan MD, MBBS COMPLICATIONS None ESTIMATED BLOOD LOSS Minimal SPECIMENS No specimen sent * No specimens in log * Jyoti Bryant MD, PhD January 22, 2024 1:34 PM [facility] Work Phone: 01-22-2024 Nurse Note [...] nocturnally. A&Ox4. Nerve block left arm, elevated. [facility] 01-22-2024 Surgery Postoperative evaluation and [...] Axillary block. SURGEON(S): Jyoti Bryant MD, PHD SUPPLY CHAIN LOGISTICS MANAGER: Mynor Fall MD ESTIMATED BLOOD LOSS: [...] Jyoti Bryant MD, PHD ATTENDING SHANNON/Constanza JOB: [id number] DOC: [id number] [facility] 01-22-2024 Plan of care note Patient [...] 1939 Plan Of Care Reviewed With: patient [facility] 01-20-2024 Consult note Associated Order (s): IP CONSULT TO SURGERY - TRANSPLANT (RENAL) Images from the original note were not included. TRANSPLANT SURGERY CONSULT NOTE: Consult: 01/20/2024, 4:03 PM [employer] Fac[employer] Repairer: Starla Morris MD Reason for Consult: Requesting Dr Carson Bryant for AVF revision/closure given new onset high output heart failure George Styles is a 53 y.o. male CURRENT HOSPITALIZATION LOS: Admit Date: 01/16/2024 [facility] Hospital LOS: 4 days George Styles [...] Surgeon: Enzo Heart DO; Location: [facility] INTERVENTIONAL RADIOLOGY (VIR) LIVER TRANSPLANT, ORTHOTOPIC N/A 04/12/2020 Laterality: N/A; Surgeon: LU Palma; Location: [facility] SAME DAY SURGERY MAIN OR KIDNEY TRANSPLANT W/O [place]AGA NEPHRECTOMY N/A 04/12/2020 Laterality: N/A; Surgeon: LU [...] Studies: Labs-CBC: WBC/Hgb/Hct/Plts: 3.79/12.5/38.9/166 (01/20 611) Labs-Chem 7([facility]): Bun/Creat/Cl/CO2/Glucose: 15/1.12/105/28/88 (01/20 611) Na/K+/Phos/Mg/Ca: [...] seen and staffed with Dr. Mcgowan fellow endodontist Thank you, Starla Morris MD Associated attestation - Jyoti Bryant MD, PhD - 01/22/2024 10:54 AM EST I. Jyoti Bryant MD, PhD, have independently seen and examined the patient, reviewed the labs, discussed the patient with the fellow/resident and agree with the note. [facility] Work Phone: 01-20-2024 Consult note Associated Order (s): IP CONSULT TO SURGERY - TRANSPLANT (RENAL) Images from the original note were not included. TRANSPLANT SURGERY CONSULT NOTE: Consult: 01/20/2024, 4:03 PM [employer] Facilities Repairer: Starla Morris MD Reason for Consult: Requesting Dr Carson Bryant for AVF revision/closure given new onset high output heart failure George Styles is a 53 y.o. male CURRENT HOSPITALIZATION LOS: Admit Date: 01/16/2024 [facility] Hospital LOS: 4 days George Styles [...] Surgeon: Enzo Heart DO; Location: [facility] INTERVENTIONAL RADIOLOGY (VIR) LIVER TRANSPLANT, ORTHOTOPIC N/A 04/12/2020 Laterality: N/A; Surgeon: LU Palma; Location: [facility] SAME DAY SURGERY MAIN OR KIDNEY TRANSPLANT W/O [place] NEPHRECTOMY N/A 04/12/2020 Laterality: N/A; Surgeon: LU Palma; Location: [facility] SAME DAY SURGERY MAIN OR [...] Studies: Labs-CBC: WBC/Hgb/Hct/Plts: 3.79/12.5/38.9/166 (01/20 611) Labs-Chem 7([facility]): Bun/Creat/Cl/CO2/Glucose: 15/1.12/105/28/88 (01/20 611) Na/K+/Phos/Mg/Ca: [...] seen and staffed with Dr. Mcgowan fellow endodontist Thank you, Starla Morris MD Associated attestation - Jyoti Bryant MD, PhD - 01/22/2024 10:54 AM EST I. Jyoti Bryant MD, PhD, have independently seen and examined the patient, reviewed the labs, discussed the patient with the fellow/resident and agree with the note. Associated Order(s): IP CONSULT TO HEPATOBILIARY [facility] Main Hepatology Consult WebExchange --> IM [...] DAY SURGERY MAIN OR KIDNEY TRANSPLANT W/O ON[place]AGA NEPHRECTOMY N/A 04/12/2020 Laterality: N/A; Surgeon: LU Palma; Location: [facility] SAME DAY SURGERY MAIN OR [...] (order for outpatient) Please SecureChat or Call ([phone]) for any questions. Await attending attestation for final recommendations. Hank Noel MD Division of Gastroenterology, Hepatology, and Nutrition Clinical Fellow, PGY-5 Pager: [phone] For urgent/stat calls or consults 5pm to 7am, please page the on-call GI fellow on [employer]. [facility]--> Internal Medicine--> Gastroenterology, Hepatology, & Nutrition--> 1st Call Fel Alysia For urgent/stat calls or consults 7am to 5pm during the weekend, please page the on-call GI fellow on [employer]. [facility]--> Internal Medicine--> Gastroenterology, Hepatology, & Nutrition--> All Hep & East Wknd Cons Fel Day For follow up questions regarding this patient 7am to 5pm during the weekday, contact the Hepatology consults fellow or CARLOS A on [employer]. [facility]--> Internal Medicine--> Gastroenterology, Hepatology, & Nutrition--> [...] Estrada MD, MSc documented in this encounter [facility] 01-19-2024 Nurse Note 01/19/24 0900 [...] rest, 95-96% when talking/moving. Paulette Cordon RN [facility] 01-19-2024 Nurse Note Paged overnight coverage, Jasper Gastelum MD, via pager #[phone] Pt- George StylesRomaine Sarah 1082. TM1. Was wondering if he can have his Melatonin order increased to 6mg. Per pt, he usually takes 8mg at home. -SAMI Duffy #[phone] Tati Charles RN [facility] 01-18-2024 Consult note Associated Order (s): [...] N/A; Surgeon: LU Palma; Location: [facility] SAME DAY SURGERY MAIN OR KIDNEY TRANSPLANT W/O ON[place]AGA NEPHRECTOMY N/A 04/12/2020 Laterality: N/A; Surgeon: LU Palma; Location: [facility] SAME DAY SURGERY MAIN OR [...] (order for outpatient) Please SecureChat or Call ([phone]) for any questions. Await attending attestation for final recommendations. Hank Noel MD Division of Gastroenterology, Hepatology, and Nutrition Clinical Fellow, PGY-5 Pager: [phone] For urgent/stat calls or consults 5pm to 7am, please page the on-call GI fellow on [employer]. [facility]--> Internal Medicine--> Gastroenterology, Hepatology, & Nutrition--> 1st Call Janae Alysia For urgent/stat calls or consults 7am to 5pm during the weekend, please page the on-call GI fellow on [employer]Hack[employer]. [facility]--> Internal Medicine--> Gastroenterology, Hepatology, & Nutrition--> All Hep & East Wknd Cons Fel Day For follow up questions regarding this patient 7am to 5pm during the weekday, contact the Hepatology consults fellow or CARLOS A on [employer]. [facility]--> Internal Medicine--> Gastroenterology, Hepatology, & Nutrition--> [...] for outpatient) Michael Estrada MD, MSc [facility] Work Phone: 01-16-2024 Plan of care note Internal Medicine Daily Progress Note Patient: George Styles, 1970, [id number] Physician: Arelis Mera MD, PGY3, Pager #[phone], TM1 service Assessment/Plan: George Styles is a [...] MD, on rounds. Signed, Arelis Mera MD [facility] 01-16-2024 Nurse Note Mr. Styles was admitted to [address] [place] [address]. On admission to [facility], from outside facility a dual RN initial assessment of skin condition was performed by Izzy Gutierrez, RN and Leroy Singleton, RN. Skin Assessment: Skin within defined limits:Yes Jose Score: 20 Wound Vision Technical Instructor images obtained: No LDA Added: No Based [...] room closest to nurses station when available. [facility] 01-16-2024 History and physical note Images from the original note were not included. Internal Medicine Admission History & Physical Patient: George Styles, 1970, [id number] Physician: Timothy Joseph MD, PGY1, Pager #[phone], TM 1 service Date of face to [...] Surgeon: Enzo Heart DO; Location: [facility] INTERVENTIONAL RADIOLOGY (VIR) LIVER TRANSPLANT, ORTHOTOPIC N/A 04/12/2020 Laterality: N/A; Surgeon: LU Palma; Location: [facility] SAME DAY SURGERY MAIN OR KIDNEY TRANSPLANT W/O [place] NEPHRECTOMY N/A 04/12/2020 Laterality: N/A; Surgeon: LU Palma; Location: [facility] SAME DAY SURGERY MAIN OR [...] itraconazole Fax results to: Dr. White - [phone] Transplant Neph - [phone] Gabapentin 400 MG capsule Sig: Take 1 [...] erythema: Skin: No jaundice or rash Neuro: windows systems admin 3-7, 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 Strength grossly [...] DVT prophylaxis with lovenox Disposition: admitted to [facility] Code status is Full Staffed with [...] Pierson, Luisa Steven, Renee Rivera, Daisha Max Door Closer: José Miguel Garnica All Txt: 04/13/2020 (Kidney), [...] results found for: CYCLOSPORIN , CYCLOSPORIN2 , [id number] , CYCLORAND No results found for: SIROLIMUS [...] request in chart. Kevin Prince MD Pager [phone] [facility] 01-16-2024 History and physical note Images from the original note were not included. Internal Medicine Admission History & Physical Patient: George Styles, 1970, [id number] Physician: Timothy Joseph MD, PGY1, Pager #[phone], TM 1 service Date of face to [...] Surgeon: Enzo Heart DO; Location: [facility] INTERVENTIONAL RADIOLOGY (VIR) LIVER TRANSPLANT, ORTHOTOPIC N/A 04/12/2020 Laterality: N/A; Surgeon: LU Palma; Location: [facility] SAME DAY SURGERY MAIN OR KIDNEY TRANSPLANT W/O [place] NEPHRECTOMY N/A 04/12/2020 Laterality: N/A; Surgeon: LU Palma; Location: [facility] SAME DAY SURGERY MAIN OR [...] itraconazole Fax results to: Dr. White - [phone] Transplant Neph - [phone] Gabapentin 400 MG capsule Sig: Take 1 [...] erythema: Skin: No jaundice or rash Neuro: windows systems admin 3-7, 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 Strength grossly [...] DVT prophylaxis with lovenox Disposition: admitted to [facility] Code status is Full Staffed with [...] Pierson, Luisa Steven, Renee Rivera, Daisha Max Door Closer: José Miguel Garnica All Txt: 04/13/2020 (Kidney), [...] results found for: CYCLOSPORIN , CYCLOSPORIN2 , [id number] , CYCLORAND No results found for: SIROLIMUS [...] request in chart. Kevin Prince MD Pager [phone] documented in this encounter [facility] 01-12-2024 History of Present illness [...] Prograf 0.2 MG Contact Info: Specialty ([place]) [phone] [facility] [phone] [facility] [phone] David [phone] Bedside Delivery ([facility]) [phone] [facility] RX OUTREACH ADVANCED: Call Information: Date and Time of Contact: 01/25/2024 10:23 AM Method of Contact: By Phone Contact Type: Prescriptions Contactor: [facility] Contactee: Patient Contact Outcome: Left message (prograf myco) Contact Info: Specialty ([place]) [phone] [facility] [phone] [facility] [phone] David [phone] Bedside Delivery ([facility]) [phone] documented in this encounter [facility] 01-12-2024 History of Present illness [...] Prograf 0.2 MG Contact Info: Specialty ([place]) [phone] [facility] [phone] [facility] [phone] David [phone] Bedside Delivery ([facility]) [phone] [facility] RX OUTREACH ADVANCED: Call Information: Date and Time of Contact: 01/25/2024 10:23 AM Method of Contact: By Phone Contact Type: Prescriptions Contactor: [facility] Contactee: Patient Contact Outcome: Left message (prograf myco) Contact Info: Specialty ([place]) [phone] [facility] [phone] [facility] [phone] [facility] [phone] Bedside Delivery ([facility]) [phone] [facility] RX OUTREACH ADVANCED: Call Information: Date and Time of Contact: 01/27/2024 10:19 AM Method of Contact: By Phone Contact Type: Prescriptions Contactor: [facility] Contactee: Patient Contact Outcome: Left message (myco prograf) Contact Info: Specialty ([place]) [phone] [facility] [phone] [facility] [phone] David [phone] Bedside Delivery ([facility]) [phone] documented in this encounter [facility] 01-12-2024 History of Present illness [...] Prograf 0.2 MG Contact Info: Specialty ([place]) [phone] [facility] [phone] [facility] [phone] David [phone] Bedside Delivery ([facility]) [phone] [facility] RX OUTREACH ADVANCED: Call Information: Date and Time of Contact: 01/25/2024 10:23 AM Method of Contact: By Phone Contact Type: Prescriptions Contactor: [facility] Contactee: Patient Contact Outcome: Left message (prograf myco) Contact Info: Specialty ([place]) [phone] [facility] [phone] [facility] [phone] David [phone] Bedside Delivery ([facility]) [phone] [facility] RX OUTREACH ADVANCED: Call Information: Date and Time of Contact: 01/27/2024 10:19 AM Method of Contact: By Phone Contact Type: Prescriptions Contactor: [facility] Contactee: Patient Contact Outcome: Left message (myco prograf) Contact Info: Specialty ([place]) [phone] [facility] [phone] [facility] [phone] David [phone] Bedside Delivery ([facility]) [phone] [facility] RX OUTREACH ADVANCED: Call Information: Date and Time of Contact: 02/01/2024 3:22 PM Contact Type: Prescriptions Contactor: [facility] Contactee: Patient Contact Outcome: Left message Shipping/Pickup: Medication Name: Mycophenolate 360mg and Prograf 0.2mg Pack Contact Info: Specialty ([place]) [phone] [facility] [phone] [facility] [phone] David [phone] Bedside Delivery ([facility]) [phone] documented in this encounter [facility] 01-06-2024 History of Present illness [...] The neurologist wanted to send him to [facility] neurology but it is out of network [...] 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) documented in this encounter [facility] 10-06-2023 History of Present [...] Prograf 0.2 MG Contact Info: Specialty ([place]) [phone] [facility] [phone] [facility] [phone] [facility] [phone] Bedside Delivery ([facility]) [phone] [facility] RX OUTREACH ADVANCED: Call Information: Date and Time of Contact: 10/23/2023 2:00 PM Method of Contact: By Phone Contact Type: Prescriptions Contactor: [facility] Contactee: Patient Contact Outcome: Left message and Call back later Shipping/Pickup: Medication Name: Mycophenolate 360mg and Prograf 0.2mg Contact Info: Specialty ([place]) [phone] [facility] [phone] [facility] [phone] [facility] [phone] Bedside Delivery ([facility]) [phone] documented in [facility] Miscellaneous Notes Pt discharged home with [...] will machine pecan picker his oxygen from [employer], 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 This RN made [...] Patient seen ambulating in the velazquez with IRISH MOSS BLEACHER. Patient was mildly short of breath on [...] & HR 114. Messaged Mainor Loomis, via [employer] secure chat, Temp 100.8. His tylenol order [...] short period of time. 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 Episode [...] Critical Care Medicine Message Mainor Loomis, via [employer] secure chat, Good evening, just an FYI, [...] short period of time. 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 This [...] Tco2 39 Dr. Loera here also (supervisor riveting) Dr. Diaz aware of pt's increased oxygen [...] regular sleep/rest pattern promoted Sent a secure Baloon[employer] chat to Rosi LUZ concerning patient's temp [...] Medicine-Pediatrics, PGY-2 Mr. Styles was admitted to [address] [place] [address]. On admission to [facility], from home a [...] when available. documented in this encounter [facility] 09-11-2023 History of Present illness Narrative Provided follow-up emotional and spiritual support. Patient shared about rosemary of discharge and looking forward to seeing family Field Broomer provided: - Supportive presence - Active listening - Validation of feelings/emotions Patient encouraged to request a operation supervisor as needed. Chaplains are available in-house 24 hours a day and 7 days a week. For urgent matters in [facility], please page [phone]. If the request is not urgent, please enter a consult. Consults are responded to within 24 hours. Senior Staff Field Broomer Angie Singh Mdiv, [facility] Kirk [phone] [email or web address] 22/06 On-call Kirk: [phone] 22/06 Pager ,KIKE, and Brock Hernandez Pager [phone] 09/11/23 1430 Clinical Encounter Type Visited With Patient Visit Type Follow-up Pastoral Time Spent 15 min Referral Other (See Comment) (rounding) Spiritual Assessment Spiritual Observation Spirituality helpful Emotional Observation Coping well Hope Observation Specific hope focus Support Observation By Family Interventions Provided Active listening;Supportive presence Facilitated Verbalization of feelings Explored Expectations Color Straining Bag Washer Education Color Straining Bag Washer Service Available Yes Educated Patient Plan of Care Continue Visiting PRN Images from the original note were not included. [facility] ([facility] Note: Non-Verbal Med Rec [facility] received the following discharge prescription(s): Total cost is $0. I have reviewed the Discharge Rx Reconciliation Report. The discharge prescription(s) will be delivered to the patient on 09/11/2023. 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 His [place] kidney disease was noted to be presumed [...] 5.05 (H) 11/19/2018 Kevin Prince MD, SERA Chief Information Security Officer of Clinical Medicine [facility] Images from the original note were not included. Final Discharge Planning and Transportation Final Discharge Planning Discharge Disposition: Home Services at Discharge: Outpatient clinical services (ie: lab draws, transfusions, injectables) (Home Oxygen by [employer]) Selected Continued Care - Admitted Since 08/28/2023 Durable Medical Equipment Coordination complete. Service Provider Selected Services Address Phone Fax Patient Preferred [employer] [facility] Durable Medical Equipment [address] [facility] [address] [phone] Internal Comment last updated by Lora Lawrence RN 09/10/2023 1334 Correct contact information: [employer] [address] [place] [address] [place] [address] director of product marketing- you do not need to call at discharge, I already notified the company. Addendum 1521 [facility] notified this CM they are out of patient's insurance area and will not be able to service this patient at time of discharge. Provider notified. Addendum 1029 [facility] and she said they are willing to accept patient if the patient would drive to the [place] office and machine pecan picker the supplies. [...] was not contacted related to barriers Lora S, RN, MSN, CCM, CMCN Clinical Binding [facility]- [facility] Transplant #[phone] Department of Pharmacy Transplant Note Patient: George [...] dose adjustment Name: Matt Kramer RPh,PharmD Phone: [phone] Date/Time: 09/10/2023 11:33 AM This CM sent referral via mobileo for O2 concentrator to 4 agencies Start date today Timer set for 1330 [employer] [facility] [employer] Addendum 1332 One accepting company reserved in [employer] [address] [place] [address] Lora Colón RN, MSN, CCM, CMCN Clinical Binding [facility]- [facility] Transplant #[phone] NUTRITION FOLLOW-UP Nutrition Plan of Care: 1. Continue current diet order. 2. No oral supplements warranted at this time. 3. Monitor for significant weight changes. Monitor GI, skin integrity. 4. Monitor and encourage po intakes with goal of average po being 75-100%. 5. fire protection equipment technician to follow. ___ Met with patient [...] time. Will continue to monitor. RHIANNON [place]R Pager:[phone] Transplant Infectious Disease (Team 3) Progress Note [...] sign off. Please Epic message or page [phone] with questions. 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 His [place] kidney disease was noted to be presumed [...] to follow. Please Epic message or page [phone] with questions. Evan White DO Transplant Infectious Diseases Internal Medicine Daily Progress Note Patient: George Styles, 1970, [id number] Physician: Laurel Serrano MD, PhD, PGY-3, TM1 service Subjective/Interval History: No acute events overnight. Patient feeling well this morning, noting improved shortness of breath. Only feeling shortness of breath when up and moving. Has been needing O2 at night, but denies history of DARLEEN or snoring. 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 His [place] kidney disease was noted to be presumed [...] 5.05 (H) 11/19/2018 Kevin Prince MD, SERA Chief Information Security Officer of Clinical Medicine [facility] Transplant Infectious Disease [...] to follow. Please Epic message or page [phone] with questions. Ann Marie Haskins MD PGY-4, [...] he continues to improve. Please message via [employer] secure chat or page with any questions or concerns. Evan White DO Chief Information Security Officer Division of Infectious Disease Transplant Infectious Disease [...] to follow. Please Epic message or page [phone] with questions. Evan White DO Transplant Infectious Diseases Images from the original note were not included. Pulmonary/Critical Care Medicine Daily Progress Note Reason for Consultation: bronch for infectious workup Requesting Physician: Dr. Prince CURRENT HOSPITALIZATION: Admit Date: 08/28/2023 [facility] LOS: 9 days Impression 1. [...] and interpreted reviewed the radiographic data in [employer]. 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 His [place] kidney disease was noted to be presumed [...] 5.05 (H) 11/19/2018 Kevin Prince MD, FASN Chief Information Security Officer of Clinical Medicine [facility] Images from the original note were not included. Pulmonary/Critical Care Medicine Daily Progress Note Reason for Consultation: bronch for infectious workup Requesting Physician: Dr. Prince CURRENT HOSPITALIZATION: Admit Date: 08/28/2023 [facility] Hospital LOS: 8 days Impression 1. [...] and interpreted reviewed the radiographic data in [facility]. Acute Occupational Therapy Evaluation Prior to [...] Assessment: Transfer Assessment: Sit to Stand Transfer [place] Level: Sit->Stand: independent Skilled Intervention/Details: Sit->Stand: x1 from EOB, x1 from toilet Stand to Sit Transfer [place] Level: Stand->Sit: independent Skilled Intervention/Details: Stand->Sit: x1 to toilet, x1 to EOB Functional Mobility: Functional Mobility [place] Level: Functional Mobility/Gait: independent Ambulation Distance (Feet): [...] 32.79% Currently Impaired in Daily Activity - Interventions: Assessment & Plan: Patient was admitted [...] Acute Physical Therapy Evaluation Prior to Admission [facility] score(s): PRIOR LEVEL AM-PAC Mobility Raw [...] Intact Mobility Assessment: Supine to Sit Mobility [place] Level: Supine->Sit: modified independence Bed Features/Set-up: Supine->Sit: Head of bed elevated Sit to Supine Mobility [place] Level: Sit->Supine: not tested Balance: Sitting Balance [...] environment. Transfer Assessment: Sit to Stand Transfer [place] Level: Sit->Stand: independent Skilled Intervention/Details: Sit->Stand: From EOB x 2 without difficulty. Stand to Sit Transfer [place] Level: Stand->Sit: independent Assistive Device: Stand->Sit: armed chair Skilled Rationale: Verbal cues, Positioning Gait/Functional Mobility: Gait Assessment [place] Level: Gait: stand-by assist Assistive Device: Gait: rollator Ambulation Distance (Feet): 400 Gait Deviations Identified: decreased grace, decreased gait speed Gait Skilled Rationale: verbal, upright posture, increase step length, increase foot clearance Skilled Intervention/Details - Gait: Reasonable foot clearnce without loss of balance but endorsing dyspnea as 6-7/10. 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 His [place] kidney disease was noted to be presumed [...] discharge home. Discussed with team and attending, Keivn Prince MD, on rounds. Signed, Evan Kelly [...] 5.05 (H) 11/19/2018 Kevin Prince MD, SERA Chief Information Security Officer of Clinical Medicine [facility] Transplant Infectious Disease [...] to follow. Please Epic message or page [phone] with questions. Evan White DO Transplant Infectious Diseases Images from the original note were not included. 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 His [place] kidney disease was noted to be presumed [...] P 450 system Kevin Prince MD, SERA Chief Information Security Officer of Clinical Medicine [facility] ERT Note: ERT [...] MD, PhD Internal Medicine and Pediatrics PGY-3 [facility] Brief plan [...] MD, PhD Internal Medicine and Pediatrics PGY-3 [facility] Transplant Infectious Disease [...] to follow. Please Epic message or page [phone] with questions. 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 His [place] kidney disease was noted to be presumed [...] 5.05 (H) 11/19/2018 Kevin Prince MD, MADISONN Chief Information Security Officer of Clinical Medicine [facility] Progression of Care [...] Lora Colón RN, MSN, CCM, CMCN Clinical Binding [facility]- [facility] Trans[facility] #[phone] Made introductory visit with patient. Provided emotional and spiritual support. Patient shared about: - Source of Rosemary: Camping/Fishing/Family - Spirituality/Congregation Affiliation: raised Jew - Family Support/history - Experience with illness/hospital course - Hopes for healing/future Field Broomer provided: - Supportive presence - Active listening - Validation of feelings/emotions - Pledged prayer Patient encouraged to request a operation supervisor as needed. Chaplains are available in-house 24 hours a day and 7 days a week. For urgent matters in [facility], please page [phone]. If the request is not urgent, please enter a consult. Consults are responded to within 24 hours. Senior Staff Field Broomer Angie Singh Mdiv, [facility] [place] [phone] [email or web address] 22/06 On-call [place]: [phone] 22/06 Pager ,BSH, and Brock Hernandez Pager [phone] 09/02/23 [id number] Clinical Encounter Type Visited With Patient Visit Type Introduction Pastoral Time Spent 15 min Referral Other (See Comment) (rounding) Spiritual Assessment Spiritual Observation Spirituality helpful Emotional Observation Coping well Hope Observation Specific hope focus Support Observation By Family Interventions Provided Active listening;Supportive presence Facilitated Verbalization of feelings Explored Expectations Color Straining Bag Washer Education Color Straining Bag Washer Service Available Yes Educated Patient Outcomes Patient Outcomes Reduced distress Plan of Care Continue Visiting PRN NUTRITION RISK SCREENING NOTE Nutrition Plan of Care: 1. Continue current diet order. 2. No oral supplements warranted at this time. 3. Monitor for significant weight changes. Monitor GI and skin integrity. 4. Monitor and encourage po intakes with goal of average po being 100%. 5. fire protection equipment technician to follow. George Styles is a 53 y.o. 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 His [place] kidney disease was noted to be presumed hepatorenal syndrome. His post-transplant course was noteworthy for nephrostomy tube (05/17/2022-09/10/2022) due to concern for ureteral stone. He presents as a direct admission for fever, cough, for infectious workup. Pt unavailable and information obtained via chart review Account Review Specialist Screening Pt's appetite is good. Pt [...] time. Will continue to monitor. 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 His [place] kidney disease was noted to be presumed [...] as outlined above. Kevin Prince MD Pager [phone] Summary: Pharmacy Med Rec Department of Pharmacy [...] Refills: 0 Provider: Zuly Bruno NP [facility] [place] [place] Other Comments: Patient reported his Last Home Dose of mycophenolate & tacrolimus was on 08/28/23 at 0900. Patient reported he was taking Bactrim and benzonatate for fevers and a cough he was having. Please feel free to contact me with any further questions. Name: Heidy Chatman Phone #: [phone] Date/Time: 09/01/2023 2:01 PM Time Spent: 15 minutes Associated attestation - Matt Kramer RPh,PharmJenna - 09/01/2023 2:28 PM EDT Department of Pharmacy Admission Medication Reconciliation Note Patient: George Styles Room/Bed: 1062/A I have reviewed the home medication list with the Triage Technician. All changes to the home medication list have been updated in IHIS. Updated SUPERVISOR DOCK Med List: Prior to Admission Medications Prescriptions [...] questions. Name: Matt Kramer RPh,PharmD Phone #: [phone] Date/Time: 09/01/2023 2:28 PM Transplant Infectious Disease [...] crypto antigen, EBV PCR -follow pending histo, [id number] labs These recommendations were discussed with the primary team. Transplant ID (Team 3) will continue to follow. Please Epic message or page [phone] with questions. 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 His [place] kidney disease was noted to be presumed [...] 5.05 (H) 11/19/2018 Kevin Prince MD, SERA Chief Information Security Officer of Clinical Medicine [facility] Discharge Planning Patient [...] Yes Name and Contact information: Gian Styles ([phone]) Reviewed and Updated in Demographics? : Yes [...] patient on Anticoagulation? : No [id number] [place] [address] - [address] [place] [phone] Shank Stapler Does the patient or sales donor recruitment representative express financial concerns? : No Employed?: Disabled Coping/Stress Concerns about patient s coping and stress?: No Concerns about patient s caregiver s coping and stress?: No Values and Beliefs Cultural or sabianism practices that may impact discharge planning and/or [...] Plan 1. Identified self and role as Binding Nicker. 2. Confirmed and updated demographics and treatment team. 3. Binding Nicker will continue to follow with medical team/pt for any other additional discharge needs. Kasandra DON RN *Please note I am float CM and work Thursday and Thursday every other week. Please call [phone] for assist in my absence. 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 His [place] kidney disease was noted to be presumed [...] MD, PhD documented in this encounter [facility] 09-10-2023 Hospital Discharge instructions Laurel [...] healthy foods. documented in this encounter [facility] 09-01-2023 Consult note Associated Order (s): IP CONSULT TO PULMONOLOGY Pulmonary Medicine Inpatient Consultation Reason for Consultation: bronch for infectious workup Requesting Physician: Dr. Prince Pulmonary Attending Physician: Dr. Diaz CURRENT HOSPITALIZATION: Admit Date: 08/28/2023 [facility] Hospital LOS: 4 days Impression/Recommendations: George [...] short period of time. 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 Other histories as documented in [...] had any ill contacts. He traveled to [place] [facility]. REVIEW OF SYSTEMS A complete [...] Surgeon: Enzo Heart DO; Location: [facility] INTERVENTIONAL RADIOLOGY (VIR) LIVER TRANSPLANT, ORTHOTOPIC N/A 04/12/2020 Laterality: N/A; Surgeon: LU Palma; Location: [facility] SAME DAY SURGERY MAIN OR KIDNEY TRANSPLANT W/O ONONDAGA NEPHRECTOMY N/A 04/12/2020 Laterality: N/A; Surgeon: LU Palma; Location: [facility] SAME DAY SURGERY MAIN OR [...] Alamo MD I can be reached via Muzui secure message (preferred) or Pager #[phone] documented in this encounter [facility] 08-28-2023 History and physical note Images from the original note were not included. Internal Medicine Admission History & Physical Patient: George Feliz Jensen, 1970, [id number] Physician: Aric Turner MD, PGY1, Pager #[phone], TM service Date of face to face [...] So he went to see the transplant motorcycle riding instructor. He was found elevated Cr and asked [...] Appetite is ok now. Urine is about 8102-9971 ml every day. Stool every day, no [...] DAY SURGERY MAIN OR KIDNEY TRANSPLANT W/O ON[place]AGA NEPHRECTOMY N/A 04/12/2020 Laterality: N/A; Surgeon: LU Palma; Location: 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 His [place] kidney disease was noted to be presumed [...] Urinary histoplasmosis - PJP, candid PCR - Missile Facilities Repairer transplant ID Acute Kidney Injury with Kidney [...] Pierson, Luisa Steven, Renee Rivera, Daisha Max Door Closer: José Miguel Garnica All Txt: 04/13/2020 (Kidney), [...] results found for: CYCLOSPORIN , CYCLOSPORIN2 , [id number] , CYCLORAND No results found for: SIROLIMUS [...] Rest as above. Kevin Prince MD Pager [phone] documented in this encounter [facility] 08-28-2023 History of Present illness Narrative Images from the original note were not included. 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 Door Closer: Anayeli Burt Date of Liver Transplant: 04/13/2020 (Kidney), 04/13/2020 (Liver) 3 years 4 months post Liver/Kidney Transplant Primary Disease: Hypertensive Nephrosclerosis Transplant Blast Furnace Keeper Helper: Erma Roe/ Daisha Max Primary Care [...] and faMOTIdine === None Specified Preferred Lab: [facility] Change in lab frequency / new [...] every 12 hours. ADDITIONAL INFORMATION: None Specified, [id number] [place] [address] - [address] [facility] [address] [facility] [address] [facility] [address] [place] [id number] [id number] [place] [address] [address] [facility] [address] [facility] [id number] [facility] [address], [address] [facility] [address] ROS and SCREEN: Chest Pain: negative Cough: [...] PHYSICIAN: I saw George Styles at the [facility] on 08/28/2023. Patient is a 53 y.o. 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 His [place] kidney disease was noted to be presumed [...] Surgeon: Enzo Heart DO; Location: [facility] INTERVENTIONAL RADIOLOGY (VIR) LIVER TRANSPLANT, ORTHOTOPIC N/A 04/12/2020 Laterality: N/A; Surgeon: LU Palma; Location: [facility] SAME DAY SURGERY MAIN OR KIDNEY TRANSPLANT W/O [place] NEPHRECTOMY N/A 04/12/2020 Laterality: N/A; Surgeon: LU Palma; Location: [facility] SAME DAY SURGERY MAIN OR [...] you have any questions. Steve Latham MD environmental control administrator Division of Nephrology [facility] documented in this encounter [facility] 08-28-2023 Instructions Mainor Busby RN - 08/28/2023 2:15 PM EDT - Admission for fevers, cough, and night sweats documented in this encounter [facility] 08-19-2023 History of Present illness Narrative [facility] RX OUTREACH ADVANCED: Call Information: Date and Time of Contact: 08/19/2023 2:52 PM Method of Contact: By Phone Contact Type: Prescriptions Contactor: [facility] OP Contactee: Patient Shipping/Pickup: Medicare B Refill?: No Medication Name: Tacro 0.5mg Delivery Method: Air Delivery Location: Home Signature Required: No Mailing/Pickup Date: 08/25/2023 Shipping Address: [address] [place] [address] [address] Contact Info: Specialty ([place]) [phone] [facility] [phone] [facility] [phone] David [phone] Bedside Delivery ([facility]) [phone] documented in this encounter [facility] 06-12-2023 History of Present illness Narrative Images from the original note were not included. George Styles is a 53 y.o. 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 No longer follows with a local motorcycle riding instructor. History of Present Illness: Since George was [...] and lab results. Rebeca Gutierrez MSN, RN, FIRE EXTINGUISHER INSPECTOR-BC, CCTN Certified Nurse Practitioner Comprehensive Trans[facility] Center [facility] [address] [facility] [phone] documented in this encounter [facility] 06-12-2023 Instructions JEANNA Hess - 06/12/2023 3:00 PM EDT No change in immunosuppression. documented in this encounter [facility] 06-10-2023 History of Present illness Narrative [facility] OUTREACH ADVANCED: Call Information: Method of Contact: By Phone Contact Type: Prescriptions Contactor: [facility] OP Contactee: Patient Contact Outcome: Left message Shipping/Pickup: Medication Name: Mycophenolate sod 180 mg Contact Info: Specialty ([place]) [phone] [facility] [phone] [facility] [phone] David [phone] Bedside Delivery ([facility]) [phone] [facility] RX OUTREACH ADVANCED: Call Information: Date and Time of Contact: 06/12/2023 9:43 AM Method of Contact: By Phone Contact Type: Prescriptions Contactor: [facility] OP Contactee: Patient Contact Outcome: Left message and Follow-up Shipping/Pickup: Medicare B Refill?: No Medication Name: Myco 180 Contact Info: Specialty ([place]) [phone] Jakob [phone] [facility] [phone] [facility] [phone] Bedside Delivery ([facility]) [phone] [facility] OP RX OUTREACH ADVANCED: Call Information: Date and Time of Contact: 06/12/2023 10:08 AM Method of Contact: By Phone Contact Type: Prescriptions Contactor: [facility] OP Contactee: Patient Shipping/Pickup: Medicare B Refill?: No Medication Name: Mycophenolate 180mg DR Delivery Method: Air Delivery Location: Home Signature Required: No Mailing/Pickup Date: 06/17/2023 Shipping Address: [address] [place] [address] Contact Info: Specialty ([place]) [phone] Jakob [phone] [facility] [phone] David [phone] Bedside Delivery ([facility]) [phone] documented [facility] History of Present illness Narrative [facility] RX OUTREACH ADVANCED: Call Information: Date and Time of Contact: 03/12/2023 10:34 AM Method of Contact: By Phone Contact Type: Prescriptions Contactor: [facility] OP Contactee: Patient Shipping/Pickup: Medicare B Refill?: No Medication Name: Mycophenoloate sod 360 mg prednisone 5mg Delivery Method: Air Delivery Location: Home Signature Required: No Mailing/Pickup Date: 03/16/2023 Shipping Address: [address] [facility] [address] Contact Info: Specialty ([place]) [phone] [facility] [phone] [facility] [phone] David [phone] Bedside Delivery ([facility]) [phone] [facility] RX OUTREACH ADVANCED: Call Information: [...] No Mailing/Pickup Date: 03/19/2023 Shipping Address: [address] [facility] [address] Contact Info: Specialty ([place]) [phone] [facility] [phone] [facility] [phone] David [phone] Bedside Delivery ([facility]) [phone] documented in this encounter [facility] 03-10-2023 History of Present illness Narrative [facility] RX OUTREACH ADVANCED: Call Information: Date and Time of Contact: 03/10/2023 12:00 PM Method of Contact: By Phone Contact Type: Prescriptions Contactor: [facility] OP Contactee: Patient Contact Outcome: Left message and Call back later Shipping/Pickup: Medication Name: Mycophenolate ; Tacrolimus Contact Info: Specialty ([place]) [phone] [facility] [phone] [facility] [phone] [facility] [phone] Bedside Delivery ([facility]) [phone] documented in this encounter [facility] 03-10-2023 History of Present illness Narrative [facility] RX OUTREACH ADVANCED: Call Information: Date and Time of Contact: 03/10/2023 12:00 PM Method of Contact: By Phone Contact Type: Prescriptions Contactor: [facility] OP Contactee: Patient Contact Outcome: Left message and Call back later Shipping/Pickup: Medication Name: Mycophenolate ; Tacrolimus Contact Info: Specialty ([place]) [phone] [facility] [phone] [facility] [phone] [facility] [phone] Bedside Delivery ([facility]) [phone] [facility] RX OUTREACH ADVANCED: Call Information: Date and Time of Contact: 03/12/2023 10:32 AM Method of Contact: By Phone Contact Type: Prescriptions Contactor: [facility] OP Contactee: Patient Contact Outcome: Left message Shipping/Pickup: Medication Name: Mycophenolate sodium (MYFORTIC) 180 MG Tab tacrolimus 0.5 mg Contact Info: Specialty ([place]) [phone] [facility] [phone] [facility] [phone] David [phone] Bedside Delivery ([facility]) [phone] documented in this encounter [facility] 01-16-2023 History of Present illness Narrative -Referring Provider for today's consult: Daisha Max DO -Primary Care Provider: Zuly Bruno History of Present Illness George Styles is a 52 y.o. male who presents to the [facility] Transplant Hepatology Clinic today for follow-up [...] Surgeon: Enzo Heart DO; Location: [facility] INTERVENTIONAL RADIOLOGY (VIR) LIVER TRANSPLANT, ORTHOTOPIC N/A 04/12/2020 Laterality: N/A; Surgeon: LU Palma; Location: [facility] SAME DAY SURGERY MAIN OR KIDNEY TRANSPLANT W/O ONONDAGA NEPHRECTOMY N/A 04/12/2020 Laterality: N/A; Surgeon: LU Palma; Location: [facility] SAME DAY SURGERY MAIN OR [...] 0.3 12/29/2022 Explant Pathology Pathologic Diagnosis A. [place] liver, orthotopic liver transplant resection (1458 gram): [...] A/P with IV contrast (06/27/2022): 1. Both [place] kidneys are atrophic with improvement in right-sided [...] frequent nighttime urination, etc). Daisha Max DO Chief Information Security Officer Gastroenterology, Hepatology and Nutrition [facility] Pager: [phone] Images from the original note were not included. 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 ADDITIONAL INFORMATION: None Specified [id number] [place] [address] - [address] [facility] [address] [facility] [address] [facility] [address] [facility] [place] [address] [id number] [place] [address] [address] [facility] [address] [place] [address] [facility] [address], [address] [place] [address] ROS and SCREEN: Chest Pain: negative Cough: [...] ADDRESS WITH PHYSICIAN: documented in this encounter [facility] 01-16-2023 Instructions José Miguel Garnica RN - 01/16/2023 9:40 AM EST - Labs Every 2 months - Discuss night time urination with your PCP - Schedule Colonoscopy through PCP - Follow up in 1 year documented in this encounter [facility] 09-10-2022 History of Present illness Narrative UROLOGY CLINIC NOTE Reason for Appointment: BPH with LUTS HPI: Patient is a 52 yo male with a DDRT to the [facility] in 2019. Nephrostomy tube placed 05/17/22 [...] and no hydronephrosis. Some reflux up the [place] right ureter but good drainage of both transplant and [place] ureter to the bladder. Nephrostomy tube was [...] transplant, orthotopic (N/A, 04/12/2020); kidney transplant w/o [place] nephrectomy (N/A, 04/12/2020); and placement nephrostomy catheter [...] Negative for , diarrhea, constipation Genitourinary: See RENO-SPARKS Neurological: Negative for headaches. Lymph/Heme: Negative for [...] x 4, Normal strength. No edema. Skin: [place], warm, and dry. There are no rashes [...] and no hydronephrosis. Some reflux up the [place] right ureter but good drainage of both transplant and [place] ureter to the bladder. Nephrostomy tube was [...] MD 09/10/22 documented in this encounter [facility] 07-07-2022 History of Present illness [...] off the table and escorted to receptionist scheduler where they made a follow up. Associated [...] to have transplant ureter with anastomosis to [place] right ureter. Nephrostogram without filling defects and no hydronephrosis. Some reflux up the [place] right ureter but good drainage of both transplant and [place] ureter to the bladder. Nephrostomy tube was removed without issue. Patient does have some sensation of incomplete bladder emptying and occasional sensation in his right flank. PVR today was 33cc. Will re-evaluate urinary symptoms at next appointment. --continue Flomax --RTC in one month flow flow/PVR/IPSS Patient to call with any additional questions or concerns. Ryan Yepez MD 07/07/22 documented in this encounter [facility] 06-27-2022 History of Present illness [...] transplant, orthotopic (N/A, 04/12/2020); kidney transplant w/o [place] nephrectomy (N/A, 04/12/2020); and placement nephrostomy catheter [...] Negative for , diarrhea, constipation Genitourinary: See RENO-SPARKS Neurological: Negative for headaches. Lymph/Heme: Negative for [...] x 4, Normal strength. No edema. Skin: [place], warm, and dry. There are no rashes [...] the Q in 2019. Nephrostomy tube placed 05/17 due [...] bag if needed. documented in this encounter [facility] 06-27-2022 History and physical note Patient was evaluated in clinic as a nurse visit. Please refer to Rena Brewster's note. [facility] Work Phone: 06-27-2022 History and physical note Patient was evaluated in clinic as a nurse visit. Please refer to Rena Brewster's note. documented in this encounter [facility] 06-27-2022 History of Present illness Narrative TEACHING REGARDING TX NEPH COMPLETED-NEPH TUBE SITE DRY AND INTACT-CLEAR YELLOW URINE IN THE BAG-INSTRUCTED ABOUT FLUSHING, BAG CHANGING ETC. NUMEROUS QUESTIONS ASKED AND ANSWERED-VERBALIZED UNDERSTANDING documented in this encounter [facility] 06-18-2022 Note EXAMINATION: CT ABD/ [...] mass or enlargement. KIDNEYS: Marked atrophy of [place] kidneys. Transplant right pelvic kidney with percutaneous [...] by: MÓNICA JIMENEZ Date: 2022-06-18 13:53 [facility] 06-12-2022 Instructions Anayeli Christianson RN - 06/12/2022 3:21 PM EDT Do not take apart/disrupt nephrostomy tube system. Call Interventional Radiology and/or on-call transplant nurse [phone] for instruction if need to flush (clot or decreased flow). Take cipro 500mg, one tablet, twice per day for 14 days documented in this encounter [facility] 06-12-2022 History of Present illness Narrative Images from the original note were not included. 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 Percutaneous Neph Tube placed Images from the original note were not included. Nursing Assessment In Clinic (see Clinic Prep Sheet for additional information) Patient is accompanied to clinic today by: self Did patient require a wheelchair or medical transport for appointment: no Did front end java developer confirm current address and insurance information [...] PREFERRED LAB AND PHARMACY: None Specified [facility] [place] [phone] - [address] [phone] [facility] [address] [place] [id number] [id number] [place] [address] [address] [facility] [address] [id number] [facility] [address], Jorge [address] [facility] [address] ROS and SCREEN: Chest Pain: negative Cough: negative SOB: negative Abd Pain: negative Nausea: positive Vomiting: negative Diarrhea: negative Constipation: negative Dysuria: positive Edema: negative Tremors: negative Headaches: negative Wound issues: negative Pt has neph tube w clear yellow urine. States he had a small clot that he dislodged QUESTIONS OR CONCERNS TO ADDRESS WITH PHYSICIAN: I saw George Styles at the [facility] on 06/12/2022. Patient is a 52 y.o. 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 His [place] kidney disease was noted to be presumed [...] Surgeon: Enzo Heart DO; Location: [facility] INTERVENTIONAL RADIOLOGY (VIR) LIVER TRANSPLANT, ORTHOTOPIC N/A 04/12/2020 Laterality: N/A; Surgeon: LU Palma; Location: [facility] SAME DAY SURGERY MAIN OR KIDNEY TRANSPLANT W/O ONONDAGA NEPHRECTOMY N/A 04/12/2020 Laterality: N/A; Surgeon: LU Palma; Location: [facility] SAME DAY SURGERY MAIN OR [...] you have any questions. Steve Latham MD environmental control administrator Division of Nephrology [facility] documented in this encounter [facility] 06-04-2022 Instructions TATI GROVE - 06/04/2022 11:04 AM EDT Thank you for joining us for your neph tube follow up. We recommend routine exchange every 8-10 weeks. Please reach out at [phone] when it is time to set your next routine exchange. Thank you IR clinic documented in this encounter [facility] 06-04-2022 History of Present illness [...] exchange. Verbalized understanding. documented in this encounter [facility] 05-20-2022 Note Formatting of this [...] time of his discharge. Leon Cook RN [facility] 05-20-2022 Miscellaneous Notes Patient discharged. [...] provide teaching before his discharge Leon RN #[id number] Leon Cook RN Afternoon assessment completed at [...] Interdisciplinary Rounds/Family Conf Outcome: Ongoing Discussed with [facility] re: possible urine culture performed at [...] with questions. Evan Byrd MD Urology, PGY-2 #[id number] I certify that this patient requires inpatient [...] Skin Assessment: WDL Jose Score: 20 LDA Added:Amanda Lorenzana RN documented in this encounter [facility] 05-20-2022 Note Formatting of this [...] discharge/transition of care. Outcome: Adequate for Discharge [facility] 05-20-2022 Note Formatting of this n ote might be different from the original. Tung Dillard MD R10 Rm 1006 Jensen George Please let's have a clear order on how the nephrostomy site dressing need to be changed when the patient goes home so we provide teaching before his discharge Leon RN #[id number] Leon Cook RN [facility] 05-20-2022 History of Present illness Narrative Images from the original note were not included. [facility] Note: [facility] received the following discharge prescription(s): Medication reconciliation was completed with comparison to discharge reconciliation report. The prescription(s) will be delivered to the patient's bedside on 05/20/22. Total cost is $0. Yanira Her RPh,PharmD Specialty ([place]) [phone] [facility] [phone] [facility] [phone] [place] [phone] [place] [phone] Bedside Delivery ([facility]) [phone] Attending I saw George Styles at the [facility] on 05/19/2022. I saw and independently [...] injection 5,000 Units 5,000 Units Subcutaneous Q8H iNshant Gamez MD 5,000 Units at 05/19/22 0804 [...] Daily Nishant Gamez MD 8.6 mg at 05/19/22805 sodium chloride 0.9% IV solution 250 mL [...] Daily Progress Note Patient: George Styles, 1970, [id number] Physician: Liam Julian MD, PGY-3, Pager #[phone], [id number] Subjective/Interval History: No acute events overnight. Passed [...] MD (Peggy) Division of Hospital Medicine Pager [phone] Attending I saw George Styles at the [facility] on 05/18/2022. I saw and independently [...] to prevent future stones Can remove polly Pringel MD Internal Medicine Daily Progress Note Patient: George Styles, 1970, [id number] Physician: Nishant Gamez MD, PGY2, Pager #[phone], [id number] Subjective/Interval History: Nephrostomy tube placed yesterday with a lot of urine output and significant improvement in creatinine. Objective: Vitals: 05/18/22 0410 BP: 190/86 Pulse: 83 Resp: 18 Temp: 98.4 F (36.9 C) O2 Device: room air (05/18/22409) Flow (L/min): 3 (05/17/22 3619) Gen: NAD, well-appearing HENT: NCAT, EOMI, MMM [...] have stablized for this to be sales donor recruitment representative. Daya (Aggie Saldana MD Division of Hospital Medicine Pager [phone] Internal Medicine Daily Progress Note Patient: George Styles, 1970, [id number] Physician: Nishant Gamez MD, PGY2, Pager #[phone], [id number] Subjective/Interval History: Worsening creatinine this morning with [...] Saldana MD Division of Hospital Medicine Pager [phone] Attending I saw George Styles at the [facility] on 05/17/2022. I saw and independently [...] of chart and discussion with treatment team, Binding Nicker has not identified needs at this time. [...] follow. Introduced self and role of the operation supervisor to patient. Provided emotional and spiritual support and the patient responded by sharing their experience and discussed the following: - Spirituality/Congregation Affiliation: As a kid attended Jew sikhism but not a strong identity now - Family support - pt's brothers live close by Field Broomer provided: - Supportive presence - Active listening - Validation of feelings/emotions Patient encouraged to request a operation supervisor as needed. Chaplains are available in-house 24 hours a day and 7 days a week. For urgent matters in [facility], please page [phone]. If the request is not urgent, please enter a consult. Consults are responded to within 24 hours. Angie Singh Mdiv, BCC [facility] [place] [address] Field Broomer [facility] Field Broomer [place] [phone] [email or web address] 22/06 [facility] Pager [phone] 22/06 Pager ,BS, and Brock 1500 22/06 David Pager [phone] 05/16/22 1124 Clinical Encounter Type Visited With Patient Visit Type Introduction Pastoral Time Spent 15 min Referral Other (See Comment) (Rounding) Spiritual Assessment Spiritual Observation Spirituality helpful;Identifies as (see comment) (Yazidism) Emotional Observation Coping well Hope Observation Hopeful and accepting Support Observation By Family Interventions Provided Active listening;Supportive presence Facilitated Verbalization of feelings;Sharing of life story;Identifying support system Explored Expectations Color Straining Bag Washer Education Color Straining Bag Washer Service Available Yes Educated Patient Outcomes Patient Outcomes Articulated purpose/meaning Plan of Care Continue Visiting PRN Internal Medicine Daily Progress Note Patient: George Styles, 1970, [id number] Physician: Nishant Gamez MD, PGY2, Pager #[phone], [id number] Subjective/Interval History: Overall feeling okay this morning. 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 Objective/Observation: [...] Supervision Transfer Assessment: Sit to Stand Transfer [place] Level: Sit->Stand: independent Skilled Intervention/Details: Sit->Stand: x1 from EOB Stand to Sit Transfer [place] Level: Stand->Sit: supervision Assistive Device: Stand->Sit: armed chair Skilled Rationale: Controlled descent for sitting, Verbal cues Gait/Functional Mobility: Gait Assessment [place] Level: Gait: supervision Assistive Device: Gait: gait belt Gait Distance (feet): 200 Gait Deviations Identified: decreased grace, decreased step length, decreased stride length Gait Skilled Rationale: verbal, upright posture Skilled Intervention/Details - Gait: Pt with steady gait without LOB or complaints of SOB. Stairs: Stairs Assessment [place] Level: Stair Negotiation: stand-by assist Assistive Device: Stair Negotiation: gait belt, left rail (ascending) Number of stairs: 9 Stairs Skilled Rationale: reciprocal pattern Outcome Score(s): [facility] Basic Mobility Inpatient Short Form Turning over in bed: 4 - No Assistance Sitting/standing from chair: 4 - No Assistance Moving from lying on back to sittin - No Assistance Moving to and from bed to chair: 4 - No Assistance Walk in hospital room: 3 - A Little Assistance Climbing 3-5 steps with a railin - A Little Assistance CURRENT [facility] Mobility Raw Score: 22 CURRENT [facility] Mobility Functional Limitation/Modifier: 20.91% Currently Impaired in [...] reported no concerns with discharging home with [place] support. 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 IADL [...] Assessment: Transfer Assessment: Sit to Stand Transfer [place] Level: Sit->Stand: independent Skilled Rationale: Cues for increased safety Skilled Intervention/Details: Sit->Stand: x1 EOB Stand to Sit Transfer [place] Level: Stand->Sit: supervision Assistive Device: Stand->Sit: gait belt, armed chair Skilled Rationale: Verbal cues, Controlled descent for sitting, Cues for increased safety Skilled Intervention/Details: Stand->Sit: cues for hand placement and controlled descent Functional Mobility: Functional Mobility [place] Level: Functional Mobility/Gait: stand-by assist Assistive Device: Functional Mobility/Gait: gait belt Functional Mobility Distance: Distance needed for limited community mobility Functional Mobility Deficits: Activity tolerance, Balance, Decreased step length, Generalized weakness Functional Mobility Skilled Rationale: Verbal cues, Facilitate postural control Skilled Intervention/Details - Functional Mobility/Gait: cues for upright posture Outcome Score(s): [facility]RENT [facility] Daily Activity Inpatient Short Form Putting on/Taking Off Lower Body Clothin - A Little Assistance Bathin - A Little Assistance Toiletin - A Little Assistance Putting on/Taking Off Upper Body Clothin - No Assistance Groomin - No Assistance Eatin - No Assistance CURRENT [facility] Activity Raw Score: 21 CURRENT [facility] Activity Functional Limitation/Modifier: 32.79% Currently Impaired in [...] N/A; Surgeon: LU Palma; Location: [facility] SAME DAY SURGERY MAIN OR KIDNEY TRANSPLANT W/O ON[place]AGA NEPHRECTOMY N/A 04/12/2020 Laterality: N/A; Surgeon: LU Palma; Location: [facility] SAME DAY SURGERY MAIN OR [...] by: Mel Norman OT, OTR/L License #: [id number] pager # [phone] 05/20/2022 Upon discontinuation of Acute Care Occupational Therapy Services or patient discharge from the hospital this note represents the current Occupational Therapy Discharge Summary. documented in this encounter [facility] 05-20-2022 Hospital course Narrative Discharge [...] recent hospital stay at [facility]. As you may know, George Styles, is [...] Saldana MD Division of Hospital Medicine p: [phone] f: [phone] CONSULTS DURING ADMISSION: IP CONSULT TO SURGERY - UROLOGY IP CONSULT TO NEPHROLOGY - TRANSPLANT (MEDICINE) IP CONSULT TO INTERVENTIONAL RADIOLOGY IP CONSULT TO PHYSICAL THERAPY IP CONSULT TO OCCUPATIONAL THERAPY IP CONSULT TO PHARMACY BEDSIDE DISCHARGE MED DELIVERY IMAGING / PROCEDURES / RESULTS: Should you require further information or copies of results or reports please contact Medical Information Management @ [phone] LABS AT TIME OF DISCHARGE: Lab Results [...] AT DISCHARGE: Zuly Bruno [address] / [place] [address] MEDICATIONS: Discharge Orders CT ABDOMEN/PELVIS WITHOUT CONTRAST [...] CAPS Generic drug: docusate Follow-up: Zuly Bruno, TANGLED YARN SPOOL STRAIGHTENER [address] [place] [phone] Schedule an appointment as soon as possible for a visit Follow-up appointment with your, primary care physician within 7-10 days, after discharge. [address] [facility] [phone] Follow up The department of urology will call you with a follow up appointment. LU Ovalle [address] 11th Floor [facility] [address] Follow up Please make a follow up appointment with Dr. Latham's office. Upcoming Appointments (up to five)-Some appointments for Medical Center outpatient clinics or diagnostic testing locations are not displayed below Provider Department Dept Phone 06/04/2022 10:40 AM [facility] Interventional Radiology Clinic [phone] 06/27/2022 1:30 PM [facility], [facility] Department of Radiology Arrive at: Arrive to First Floor Registration Desk [phone] 06/27/2022 2:40 PM Ryan Yepez [facility] [place] Arrive at: Arrive to 2nd Floor, Registration [address] 10/31/2022 1:00 PM Steve Latham [facility] [phone] 01/16/2023 9:40 AM TRANSPLANT HEPATOLOGY 3, [facility] [phone] Associated attestation - Daya Saldana MD - [...] Saldana MD Division of Hospital Medicine Pager [phone] documented in this encounter [facility] 05-20-2022 Hospital Discharge instructions Giulia [...] be changed by Interventional Radiology. Please call [phone] to schedule this appointment and with any questions or concerns you may have regarding the nephrostomy tube. If you have questions or concerns, please call Interventional Radiology at SOMEONE FROM INTERVENTIONAL RADIOLOGY WILL CALL YOU FOR A FOLLOW UP IN THE IR CLINIC Giulia Cavazos RN Nurse Coordinator Interventional Radiology Interventional Radiology Outpatient scheduling documented in this encounter [facility] 05-19-2022 Note Formatting of this n [...] Ongoing Goal: Interdisciplinary Rounds/Family Conf Outcome: Ongoing [facility] 05-19-2022 Note Formatting of this n ote might be different from the original. Discussed with [facility] re: possible urine culture performed at their facility. However, based on urinalysis completed at that time, which was only notable for hematuria, culture was not performed and sample no longer feasible for culture. Liam Julian MD Internal Medicine/Pediatrics, PGY-3 [facility] 05-18-2022 Note Formatting of this n ote might be different from the original. 2003: IHIS message sent to Dr Justyn Wen, regarding patient passing a small kidney stone, about the size of pea. notified. Stone left in strainer in pt bathroom. 499: IHIS message sent to Dr Justyn Wen, regarding pt BP 174/77. [facility] Note Formatting of this n ote [...] outcomes by discharge/transition of care. Outcome: Ongoing [facility] Note Formatting of this n ote [...] hyponatremic, NS should instead be used. T [facility] Work Phone: 05-18-2022 Note Formatting of this n ote might be different from the original. IHIS chat sent to Dr Tray Quintana, regarding pt BP 190/86. Pt complaining of pain at site of neph tube. PRN pain medication given per order parameters. Pt denies any other symptoms at this time. notified and aware. [facility] 05-17-2022 Note Formatting of this n ote might be different from the original. At 0900, I rounded with Dr. Gamez and Dr. Saldana. At that time I checked Mr. Styles's vital signs. His pulse oximeter was low and he was tachypneic. Verbal order at bedside to put nasal cannula on starting at 2liters oxygen and to provide incentive spirometer. [facility] 05-17-2022 Note Formatting of this n ote might be different from the original. Interventional Radiology procedure completed with IR Attending Dr. Heart / Dr. Le of percutaneous right nephrostomy tube placement transplant kidney 10.2 Fr Griffin acosta Pt tolerated procedure with moderate sedation local numbing agent . Transported to inpatient after phase I recovery. Post procedure orders in place. T [facility] 05-16-2022 Note Formatting of this n ote might be different from the original. At 1530, I text tung Gomez MD that patient has only had 25ml urine output in matias this afternoon. T [facility] 05-16-2022 Note Formatting of this [...] with questions. Evan Byrd MD Urology, PGY-2 #1953 [facility] Work Phone: 05-16-2022 Note Formatting of this n ote might be different from the original. I certify that this patient requires inpatient services at this time. I anticipate the expected length of stay will include at least two midnights. Inpatient services are due to the following medical concerns Obstructive kidney stone. Plans for post hospitalization care will be discharge to home. [facility] 05-16-2022 Consult note Associated Order (s): IP CONSULT TO NEPHROLOGY - TRANSPLANT (MEDICINE) I saw George Styles at the [facility] on 05/16/2022. Reason for Consultation: kidney [...] he was given flomax and sent home. [place] better but noticed more pain and decreased [...] best assessment and recommendations. Maxi Pringle MD [facility] Work Phone: 05-16-2022 Consult note Associated Order (s): IP CONSULT TO NEPHROLOGY - TRANSPLANT (MEDICINE) I saw George Styles at the [facility] on 05/16/2022. Reason for Consultation: kidney [...] he was given flomax and sent home. [place] better but noticed more pain and decreased [...] states he went to his local ED [place] and he was put on Flomax and he did improve. Pt states last night he was unable to void with severe right sided abd pain. Pt states nausea and no vomiting or fevers. Pt states he went back to [place] ED at 0100 and they placed a [...] orthotopic (N/A, 04/12/2020); and kidney transplant w/o [place] nephrectomy (N/A, 04/12/2020). 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 The [place] kidneys are progressively atrophic bilaterally compared to [...] of 06/14/2020 are no longer present. The [place] distal right ureter is decompressed beyond this [...] with surgical history for renal graft and [place]maha right urinary drainage, as a discrete ureteroneocystostomy is not identified, and the graft may be draining via a ureteroureterostomy. Urology consultation recommended. 3. The [place] kidneys are bilaterally atrophic, with right renal sinus calcifications consistent with nonobstructing right [place] renal calculi up to 6 mm. Normal [...] PGY-3, Department of Urologic Surgery Pager #: [phone] Associated attestation - Ryan Yepez MD - [...] continue flomax documented in this encounter [facility] 05-16-2022 Note Formatting of this [...] supported Trust Relationship/Rapport: care explained choices provided [facility] Note Formatting of this n ote might be different from the original. On admission to R10, a dual RN initial assessment of skin condition was performed by Kallie Lorenzana RN and Sheri Arguelles RN. Skin Assessment: WDL Jose Score: 20 LDA Added:N Kallie Lorenzana RN [facility] 05-15-2022 Emergency department Note Report given to Kallie RN at 10 [facility] 05-15-2022 Emergency department Note Report [...] N/A; Surgeon: LU Palma; Location: [facility] SAME DAY SURGERY MAIN OR KIDNEY TRANSPLANT W/O ONONDAGA NEPHRECTOMY N/A 04/12/2020 Laterality: N/A; Surgeon: LU Palma; Location: [facility] SAME DAY SURGERY MAIN OR [...] Schneider MD Resident 05/15/222030 Pt arrives from [facility] with kidney stones. Pt states he had right lower abd pain and right flank pain with blood in his urine since Thursday. Pt states he went to his local ED [place] and he was put on Flomax and he did improve. Pt states last night he was unable to void with severe right sided abd pain. Pt states nausea and no vomiting or fevers. Pt states he went back to [place] ED at 0100 and they placed a matias and CT scan completed and multiple kidney stones noted. [facility] had liver and kidney transplant in 03/2020. documented in this encounter [facility] 05-15-2022 History and physical note Internal Medicine Admission History & Physical Patient: George Styles, 1970, [id number] Physician: Evan Bennett MD, PGY1, Pager #[phone], GM 4 service Date of face to [...] DAY SURGERY MAIN OR KIDNEY TRANSPLANT W/O ON[place]A NEPHRECTOMY N/A 04/12/2020 Laterality: N/A; Surgeon: LU [...] erythema: Skin: No jaundice or rash Neuro: windows systems admin 3-7, 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 Strength grossly [...] dilation of the calyces may represent narrowing/partial [id number] ofthe ureter and mild hydronephrosis or sequela [...] MD Division of Hospital Medicine [phone] [facility] Work Phone: 05-15-2022 History and physical note Internal Medicine Admission History & Physical Patient: George Styles, 1970, [id number] Physician: vEan Bennett MD, PGY1, Pager #[phone], GM 4 service Date of face to [...] DAY SURGERY MAIN OR KIDNEY TRANSPLANT W/O ON[place]A NEPHRECTOMY N/A 04/12/2020 Laterality: N/A; Surgeon: LU [...] erythema: Skin: No jaundice or rash Neuro: windows systems admin 3-7, 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 Strength grossly [...] dilation of the calyces may represent narrowing/partial [id number] ofthe ureter and mild hydronephrosis or sequela ofrecent kidney transplat. 3. Unremarkable boweL Electronically enthentiental byRomaine JIMENEZ Date: 2020-06-14 12:25 Impression/Plan: George Stlyes is a 52 y.o. male s/p LK [...] Medicine [phone] documented in this encounter [facility] 05-15-2022 Emergency department Note Bladder scan with Dr Villatoro at bedside, 14ml noted [facility] 05-15-2022 Consult note Associated Order [...] states he went to his local ED [place] and he was put on Flomax and he did improve. Pt states last night he was unable to void with severe right sided abd pain. Pt states nausea and no vomiting or fevers. Pt states he went back to [place] ED at 0100 and they placed a [...] orthotopic (N/A, 04/12/2020); and kidney transplant w/o omaha nephrectomy (N/A, 04/12/2020). 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 The omaha kidneys are progressively atrophic bilaterally compared to [...] of 06/14/2020 are no longer present. The omaha distal right ureter is decompressed beyond this [...] with surgical history for renal graft and omaha right urinary drainage, as a discrete ureteroneocystostomy is not identified, and the graft may be draining via a ureteroureterostomy. Urology consultation recommended. 3. The omaha kidneys are bilaterally atrophic, with right renal sinus calcifications consistent with nonobstructing right omaha renal calculi up to 6 mm. Normal [...] PGY-3, Department of Urologic Surgery Pager #: [phone] Associated attestation - Ryan Yepez E, MD - 05/16/2022 12:23 PM EDT I [...] future before surgical intervention --may continue flomax [facility] Work Phone: 05-15-2022 Emergency department Note Advised Dr Schneider concerning no urine output via matias catheter. [facility] Emergency department Note ED Attending George Styles has a past medical history of Acute renal failure, CAD (coronary artery disease), Cirrhosis, Dialysis patient, End stage renal disease (06/01/2018), Essential hypertension, benign, Hepatic encephalopathy, History of blood transfusion, and Liver cirrhosis. Presents with a chief complaint of kidney stone and diagnosed Thursday and was sent home with flokrebs. He went back to that ED and [...] plan of care. Gian Villatoro MD 05/15/222003 [facility] Work Phone: 05-15-[address] Schneider made aware of only 30 ml urine via matias since arrival to room. [facility] 05-15-2022 Physician Emergency department Note [...] N/A; Surgeon: LU Palma; Location: [facility] SAME DAY SURGERY MAIN OR KIDNEY TRANSPLANT W/O ONONDAGA NEPHRECTOMY N/A 04/12/2020 Laterality: N/A; Surgeon: LU [...] incorrections. Matt Schneider MD Resident 05/15/222030 [facility] Work Phone: 05-15-2022 Emergency department Note Pt arrives from [facility] with kidney stones. Pt states he had right lower abd pain and right flank pain with blood in his urine since Thursday. Pt states he went to his local ED [place] and he was put on Flomax and he did improve. Pt states last night he was unable to void with severe right sided abd pain. Pt states nausea and no vomiting or fevers. Pt states he went back to [place] ED at 0100 and they placed a matias and CT scan completed and multiple kidney stones noted. Pt sent to [facility] as he had liver and kidney transplant in 03/2020. [facility] 03-14-2022 History of Present illness [...] Required: No Mailing/Pickup Date: 03/17/2022 Shipping Address: [address] [place] [address] Contact Info: Specialty ([place]) [phone] [facility] [phone] [facility] [phone] David [phone] Bedside Delivery ([facility]) [phone] documented in this encounter [facility] 06-14-2021 History of Present illness [...] Goal Progress: Satisfactory Contact Info: Specialty ([place]) [phone] Jakob [phone] [facility] [phone] David [phone] Bedside Delivery ([facility]) [phone] [facility]RE[facility]: Call Information: Date [...] Location: Home Signature Required: Yes Shipping Address: [address] [place] [address] Contact Info: Specialty ([place]) [phone] Jakob [phone] [facility] [phone] David [phone] Bedside Delivery ([facility]) [phone] documented in this encounter [facility] Evaluation note Diagnosis FAYE (acute kidney injury)- Primary Acute kidney failure, unspecified Hydronephrosis due to obstruction of ureteral orifice Hydronephrosis due to obstruction of ureteral orifice FAYE (acute kidney injury) Acute kidney failure, unspecified [facility] Diagnosis Follow-up exam- Primary Unspecified follow-up examination [facility] Diagnosis Immunosuppressed status- Primary Unspecified disorder of immune mechanism Kidney replaced by transplant Liver replaced by transplant Abnormal blood chemistry Other abnormal blood chemistry High risk medication use Encounter for long-term (current) use of other medications Aftercare following organ transplant Liver transplant recipient [facility] Diagnosis Attention to nephrostomy- Primary [facility] Diagnosis Other hydronephrosis- Primary [facility] Diagnosis FAYE (acute kidney injury) Acute kidney failure, unspecified [facility] Diagnosis Other hydronephrosis- Primary -donor kidney transplant recipient Kidney replaced by transplant [facility] Diagnosis Other hydronephrosis [facility] Diagnosis 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) Encounter for screening for malignant neoplasm of prostate Special screening for malignant neoplasm of prostate [facility] Diagnosis Abnormal blood chemistry- Primary Other abnormal blood chemistry Liver transplant recipient Kidney replaced by transplant Immunosuppressed status Unspecified disorder of immune mechanism Aftercare following organ transplant [facility] Diagnosis Kidney replaced by transplant- Primary [facility] Diagnosis Immunosuppressed status- Primary Unspecified disorder of immune mechanism Kidney replaced by transplant Aftercare following organ transplant High risk medication use Encounter for long-term (current) use of other medications Other general symptoms and signs Abnormal blood chemistry Other abnormal blood chemistry Hypertension secondary to other renal disorders [facility] Diagnosis Histoplasmosis- Primary Histoplasmosis, [...] Fever, unspecified [facility] Diagnosis Bilateral lower extremity edema- Primary 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) Atherosclerosis 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) Atherosclerosis of aorta Obesity (BMI 30-39.9) DARLENE (obstructive sleep apnea) Obstructive sleep apnea (adult) (pediatric) Tremor Abnormal involuntary movements Immunocompromised (CMS/HCC) Unspecified immunity deficiency Primary hypertension (CMS/HCC) Unspecified essential hypertension Shortness of breath documented in this encounter [facility]* Diagnosis Pleural effusion on [...] pre-operative examination [facility] Diagnosis Heart failure, diastolic, acute- Primary Acute diastolic heart failure [facility] Diagnosis Liver lesion- Primary Other specified disorders of liver Liver transplant recipient High risk medication use Encounter for long-term (current) use of other medications Therapeutic drug monitoring Encounter for therapeutic drug monitoring Immunocompromised Unspecified immunity deficiency [facility] Diagnosis Kidney replaced by transplant- Primary [facility] (n[facility]ative)* Consultation (Routine) - New Request Specialty Diagnoses / Procedures Referred By Deni edwards Referred To Contact Interventional Radiology Diagnoses Hydronephrosis due to obstruction of ureteral orifice Daya Saldana MD [address] [place] [address] Referral ID Status Reason Start Date Expiration Date V isits Requested Visits Authorized [id number] New Request 05/18/2022 06/12/2023 1 1 * Radiology (Emergency) - New Request Specialty Diagnoses / Procedures Referred By Contac t Referred To Contact Procedures US RENAL TRANSPLANT SCAN Daya Saldana MD [address] [place] [address] Referral ID Status Reason Start Date Expiration Date V isits Requested Visits Authorized [id number] New Request 05/16/2022 06/10/2023 1 1 * Consultation (Routine) - New Request Specialty Diagnoses / Procedures Referred By Contac t Referred To Contact Urology Diagnoses FAYE (acute kidney injury) Ryan Yepez MD [address] [place] [address] [address] [place] [address] Referral ID Status Reason Start Date Expiration Date V isits Requested Visits Authorized [id number] New Request 05/16/2022 06/10/2023 1 1 * MRI/CAT Scan (Routine) - New Request Specialty Diagnoses / Procedures Referred By Contac t Referred To Contact Diagnoses FAYE (acute kidney injury) Procedures CT ABDOMEN/PELVIS WITHOUT CONTRAST CHG CT SCAN,ABDOMENT AND PELVIS,W/O CONTRAST Ryan Yepez MD [address] [place] [address] [address] [place] [address] Referral ID Status Reason Start Date Expiration Date V isits Requested Visits Authorized [id number] New Request 05/16/2022 06/10/2023 1 1 * (Routine) - Pending Review Specialty Diagnoses / Procedures Referred By Contac t Referred To Contact Procedures PLATELET MONITORING PER PROTOCOL Daya Saldana MD [address] [place] [address] Referral ID Status Reason Start Date Expiration Date V isits Requested Visits Authorized [id number] Pending Review 05/15/2022 06/09/2023 1 1 * (Routine) - Pending Review Specialty Diagnoses / Procedures Referred By Contac t Referred To Contact Procedures DVT/VTE RISK ASSESSMENT Daya Saldana MD [address] [place] [address] Referral ID Status Reason Start Date Expiration Date V isits Requested Visits Authorized [id number] Pending Review 05/15/2022 06/09/2023 1 1 * (Routine) Specialty Diagnoses / Procedures Referred By Contac t Referred To Contact Evan Bennett MD [address] [place] [address] Referral ID Status Reason Start Date Expiration Date Visits Re quested Visits Authorized * (Routine) Specialty Diagnoses / Procedures Referred By Contac t Referred To Contact Evan Bennett MD [address] [place] [address] Referral ID Status Reason Start Date Expiration Date Visits Re quested Visits Authorized [facility] for referral (narrative)* Consultation (Routine) - New Request Specialty Diagnoses / Procedures Referred By Contac t Referred To Contact Sleep Medicine Diagnoses Hypoxia Kevin Prince MD [address] [place] [address] Referral ID Status Reason Start Date Expiration Date V isits Requested Visits Authorized [id number] New Request 09/10/2023 10/04/2024 1 1 * MRI/CAT Scan (Routine) - New Request Specialty Diagnoses / Procedures Referred By Contac t Referred To Contact Diagnoses Histoplasmosis Procedures CT CHEST WITHOUT CONTRAST CHG DIAGNOSTIC COMPUTED TOMOGRAPHY THORAX W/O Kevin Zarate MD [address] [place] [address] Referral ID Status Reason Start Date Expiration Date V isits Requested Visits Authorized [id number] New Request 09/10/2023 10/04/2024 1 1 * Radiology (Routine) - New Request Specialty Diagnoses / Procedures Referred By Contac t Referred To Contact Procedures US RENAL TRANSPLANT SCAN Steve Latham MBBS [address] [place] [address] Referral ID Status Reason Start Date Expiration Date V isits Requested Visits Authorized [id number] New Request 08/29/2023 09/22/2024 1 1 * (Routine) - New Request Specialty Diagnoses / Procedures Referred By Contac t Referred To Contact Procedures PLATELET MONITORING PER PROTOCOL Steve Latham MBBS [address] [place] [address] Referral ID Status Reason Start Date Expiration Date V isits Requested Visits Authorized [id number] New Request 08/28/2023 09/21/2024 1 1 * (Routine) - New Request Specialty Diagnoses / Procedures Referred By Contac t Referred To Contact Procedures DVT/VTE RISK ASSESSMENT Steve Latham MBBS [address] [place] [address] Referral ID Status Reason Start Date Expiration Date V isits Requested Visits Authorized [id number] New Request 08/28/2023 09/21/2024 1 1 [facility] Instructions * Patient Instructions - Christin Elizabeth APRN-TANGLED YARN SPOOL STRAIGHTENER - 10/19/2018 9:21 AM EST You should take an extra dose of the lactulose as needed so that you are having 3-4 bowel movementsdaily. You should start the chemical dependency counseling as soon as possible. If you have questions, call the transplant social media designer Fidelina Pierson. in this encounter* Patient Instructions - Sophie Cary, SAMI - 10/12/2018 11:09 AM EST You have been seen in the pre-transplant evaluation clinic by Dr. Restrepo and Sophie Cary. Sophie Cary is your pre-resident services coordinator she can be reached at [phone] at any time for questions during the pre-transplant process. Your evaluation is complete pendin. Abdominal ultrasound. 2. 6 minute walk test. 3. Cardiology evaluation. Additionally, your cloth roll winder will recommend testing to screen for coronary artery disease. This will be scheduled for you after your cardiology visit. 4. Your coordinator will be requesting record from your last dental visit, colonoscopy and EGD. 5. Please work to complete social work recommendations. Your social media designer will be contacting you to follow up on your progress. 6. You have also been referred for a kidney transplant. An appointment will be scheduled for you sari evaluated in the kidney transplant clinic after you have satisfied requirements dictated by [employer] company. Once your testing is complete, we [...] ___ Other Name MRN * [place] Christin Mejisa, FIRE EXTINGUISHER INSPECTOR-TANGLED YARN SPOOL STRAIGHTENER - 10/19/2018 9:00 AM EST Formatting of this note may be different from the original. History of Present Illness: Chief Complaint Patient presents with Follow-up Cirrhosis George Styles is a 48 y.o. male who presents to the [facility] today regarding his diagnosis/chief complaint(s) of Cirrhosis secondary to ETOH, with ESRD follows with Dr. Orr. Currently undergoing evaluation for liver/kidney transplant. Has been seen in transplant clinic for eval. Still undergoing pre testing. Diagnosed in April 2018. Last drink was immediately prior to hospital admission in [place] for ACLF. Hospital course notable for ARF [...] (human immunodeficiency virus infection); Hyperlipidemia; Hyperthyroidism; Hypothyroidism; AL (myocardial infarction); Migraine; DARLENE (obstructive sleep apnea); [...] kidney transplant evaluation. Pt was AOx3. Transplant Managing Consultant role/function was explained and reviewed. The patient [...] resources were offered. Pt identifies with [employer] denominational. Pt confirms being a [place] Citizen. Pt.'s [...] has valid license, does not regularly drive (TANGLED YARN SPOOL STRAIGHTENER recommends that he not to drive). He [...] as well as referred him to pre resident services coordinator. Pt and support demonstrated moderate [...] Patient's brother David is a self employed residential remodeling subcontractor. Additional support includes his other brother Tyshawn and his Mary live fifteen minutes away. Of note Mary is a wood heel flap rubber for a [employer] is available to assist wall mirror department supervisor. He confirms being comfortable asking [...] in 2010, he was employed by the [employer]. He has access to SSDI payment (SSDI starts in November) in regards to financial means pre/ post-transplant. Pt confirms (meeting bills currently, ) being able to meet daily needs. Patient's brother asking for additional information on community resources, food stamps and Heap. Refer him to pt.'s dialysis center and the [facility]. Hereports access to Medicaid. Pt. denies history. [...] Health [facility] in [place], court ordered treatment in 2001 and [...] new visit Date of service: 10/12/2018 -Referring welfare administrator for today's consult: -Primary Care Provider: Zuly [...] EST Timed up and go 9.9 seconds Split And Drum Room Supervisor Left 52.8 pounds Right 44.9 pounds Waist circ 38.5 inches * Sophie Cary, SAMI - 10/12/2018 10:00 AM EST Formatting of this note may be different from the original. Patient George Styles ([id number]), accompanied by his brother, was seen on [...] any further questions. Sophie GUERINN, RN Liver Door Closer Etiology: ETOH HCC: No ETOH: Yes Last [...] Yovani Orr MD [address] [address] Status Reason Specialty Diagnoses / Procedures Referred By Contact Referred To Contact New Request Diagnoses Cirrhosis of liver with ascites, unspecified hepatic cirrhosis type Procedures US ABDOMEN RUQ/LIVER/GB Yovani Orr MD [address] [address] Specialty Diagnoses / Procedures Referred By Contac t Referred To Contact Diagnoses FAYE (acute kidney injury) Procedures CT ABDOMEN/PELVIS WITHOUT CONTRAST CHG CT SCAN,ABDOMENT AND PELVIS,W/O CONTRAST Central Scheduling [facility] [place] [address] Referral ID Status Reason Start Date Expiration Date V isits Requested Visits Authorized [id number] Pending Review 05/16/2022 06/10/2023 1 1 Specialty Diagnoses / Procedures Referred By Contac t Referred To Contact Diagnoses Other hydronephrosis Procedures FLUORO IMAGING FOR UROLOGY Ryan Yepez MD [address] [facility] [address] [place] [address] Referral ID Status Reason Start Date Expiration Date V isits Requested Visits Authorized [id number] New Request 07/07/2022 08/01/2023 1 1 Specialty Diagnoses / Procedures Referred By Contac t Referred To Contact Procedures DIRECT ADMIT REQUEST Steve Latham MBBS [address] [place] [address] Referral ID Status Reason Start Date Expiration Date V isits Requested Visits Authorized [id number] New Request 08/28/2023 09/21/2024 1 1 Specialty Diagnoses / Procedures Referred By Contac t Referred To Contact Radiology Diagnoses DARLENE (obstructive sleep apnea) Primary hypertension (CMS/HCC) Bilateral lower extremity edema Shortness of breath Procedures Echocardiogram 2D complete Zuly Bruno NP [address] [place] [address] Referral ID Status Reason Start Date Expiration Date Visits Requested Visits Authorized [id number] Incomplete Perform Procedure 01/06/2024 07/04/2024 1 1 Specialty Diagnoses / Procedures Referred By Contac t Referred To Contact Procedures US IMAGING REGIONAL ANESTHESIA Kehinde Gutierrez MD [address] [place] [address] Referral ID Status Reason Start Date Expiration Date V isits Requested Visits Authorized [id number] New Request 01/22/2024 02/15/2025 1 1 Specialty Diagnoses / Procedures Referred By Contac t Referred To Contact Cardiovascular Medicine Diagnoses Heart failure, diastolic, acute Kelvin Pacheco MD, MBBS [address] [place] [address] Referral ID Status Reason Start Date Expiration Date V isits Requested Visits Authorized [id number] New Request 01/20/2024 02/13/2025 1 1 Specialty Diagnoses / Procedures Referred By Contac t Referred To Contact Procedures US ABDOMEN LIVER DOPPLER US ABDOMEN LIVER TRANSPLANT DOPPLER Timothy Joseph MD [address] [facility] [address] [place] [address] Referral ID Status Reason Start Date Expiration Date V isits Requested Visits Authorized [id number] New Request 01/16/2024 02/09/2025 1 1 Specialty Diagnoses / Procedures Referred By Contac t Referred To Contact Procedures DVT/VTE RISK ASSESSMENT Kelvin Pacheco MD, MBBS [address] [place] [address] Referral ID Status Reason Start Date Expiration Date V isits Requested Visits Authorized [id number] New Request 01/16/2024 02/09/2025 1 1 Specialty Diagnoses / Procedures Referred By Contac t Referred To Contact Procedures PLATELET MONITORING PER PROTOCOL Kelvin Pacheco MD, MBBS [address] [place] [address] Referral ID Status Reason Start Date Expiration Date V isits Requested Visits Authorized [id number] New Request 01/16/2024 02/09/2025 1 1 Referral ID Status Reason Start Date Expiration Date V isits Requested Visits Authorized [id number] New Request 01/16/2024 02/09/2025 1 1 Specialty Diagnoses / Procedures Referred By Contac t Referred To Contact Procedures ECG Kelvin Pacheco MD, MBBS [address] [place] [address] Referral ID Status Reason Start Date Expiration Date V isits Requested Visits Authorized [id number] New Request 01/16/2024 02/09/2025 1 1 Specialty Diagnoses / Procedures Referred By Contac t Referred To Contact Diagnoses Liver lesion Procedures MRI ABDOMEN WITH AND WITHOUT CONTRAST CHG MRI ABDOMEN W/O & W/CONTRAST MATERIAL Sobotka, Daisha A, DO [address] [place] [address] Referral ID Status Reason Start Date Expiration Date V isits Requested Visits Authorized [id number] New Request 06/17/2024 07/12/2025 1 1 Advance Directives Documents on File Type Date Recorded Patient Low Pressure Firer Expl anation Advance Directives and Living Will Power of Dining Room Busser Latest Code Status on File Code Status [...] Comments 05/10/2020 4:17 AM 05/15/2022 10:11 PM Date [...] Yovani Orr MD [address] [address] Status Reason Specialty Diagnoses / Procedures Referre d By Contact Referred To Contact Denied Diagnoses Alcoholic cirrhosis, unspecified whether ascites present Pre-transplant evaluation for liver transplant Procedures MRI ABDOMEN WITH CONTRAST HI MRI, ABDOMEN W/CONTRAST Yovani Orr MD [address] [address] Reason Comments Liver Recipient Evaluation Status Reason Specialty Diagnoses / Procedures Referred By Contact Referred To Contact New Request Transplant / Transplant Surgery Procedures PRE NEW PATIENT Yovani Orr MD [address] [address] Alfredito Restrepo MD [address] [place] [address] Reason Comments Reschedule Reason Comments Outside Medical Records Request Reason Comments Social Work Follow-up Reason Comments Kidney Stone Specialty Diagnoses / Procedures Referred By Contac t Referred To Contact Diagnoses Obstructing kidney stone, s/p kidney transplant 2019 Daya Saldana MD [address] [place] [address] [facility] [address] [place] [address] Referral ID Status Reason Start Date Expiration Date Visits Re quested Visits Authorized [id number] 1 1 Reason Comments Follow-up Reason Comments Kidney Recipient Follow-up Liver Recipient Follow-up Reason Comments Consult Reason Comments New Patient Hospital follow up Specialty Diagnoses / Procedures Referred By Contac t Referred To Contact Urology Diagnoses hosp fu with [address] prior Procedures NEW TO DOC/RET PATIENT KristopherlydialatishaZuly tiptonROB [address] [place] [address] Ryan Yepez MD [address] [facility] [address] [place] [address] Referral ID Status Reason Start Date Expiration Date Visits Re quested Visits Authorized [id number] Closed 06/27/2022 07/22/2023 1 1 Specialty Diagnoses / Procedures Referred By Socorroac t Referred To Contact Diagnoses FAYE (acute kidney injury) Procedures CT ABDOMEN/PELVIS WITHOUT CONTRAST CHG CT SCAN,ABDOMENT AND PELVIS,W/O CONTRAST Central Scheduling [address] [place] [id number] Referral ID Status Reason Start Date Expiration Date V isits Requested Visits Authorized [id number] Pending Review 05/16/2022 06/10/2023 1 1 Reason Comments Follow-up Specialty Diagnoses / Procedures Referred By Contac t Referred To Contact Urology Diagnoses 1 week fu post NT clamp Procedures RETURN PATIENT KristopherlydialatishaomerZuly CNP [address] [place] [address] Ryan Yepez MD [address] [facility] [address] [place] [address] Referral ID Status Reason Start Date Expiration Date Visits Requested Visits Authorized [id number] Authorized - 07/07/2022 08/01/2023 2 2 Specialty Diagnoses / Procedures Referred By Contac t Referred To Contact Diagnoses Other hydronephrosis Procedures [facility] Ryan Yepez MD [address] [facility] [address] [place] [address] Referral ID Status Reason Start Date Expiration Date V isits Requested Visits Authorized [id number] New Request 07/07/2022 08/01/2023 1 1 Specialty Diagnoses / Procedures Referred By Contac t Referred To Contact Urology Diagnoses 1 week fu post NT clamp Procedures RETURN PATIENT Kiana Zuly, [employer] [address] [place] [address] Ryan Yepez MD [address] [facility] [address] [place] [address] Referral ID Status Reason Start Date Expiration Date Visits Re quested Visits Authorized [id number] Closed 07/07/2022 08/01/2023 2 2 Reason Comments Liver Recipient Follow-up Reason Comments Kidney Recipient Follow-up Reason Comments Kidney Recipient Follow-up Specialty Diagnoses / Procedures Referred By Contac t Referred To Contact Diagnoses Kidney replaced by transplant Steve Latham MBBS [address] [place] [address] [facility] [address] [place] [address] Referral ID Status Reason Start Date Expiration Date Visits Re quested Visits Authorized [id number] 1 1 Specialty Diagnoses / Procedures Referred By Contac t Referred To Contact Diagnoses Pleural effusion on right PNEUMONIA- HX LIVER AND KIDNEY TRANSPLANT Kevin Prince MD [address] [place] [address] [facility] [address] [place] [address] Referral ID Status Reason Start Date Expiration Date Visits Re quested Visits Authorized [id number] 1 1 Reason Comments New Patient Specialty Diagnoses / Procedures Referred By Contdaniel t Referred To Contact Cardiovascular Medicine Diagnoses Heart failure, diastolic, acute Kelvin Pacheco MD, MBBS [address] [place] [address] Referral ID Status Reason Start Date Expiration Date Visits Requested Visits Authorized [id number] Authorized - 01/20/2024 02/13/2025 5 5 Reason Comments Liver Recipient Follow-up (unrecognized sect ion and content) No Status Records FoundNo Status Records FoundNo Status Records FoundNo Status Records FoundNo Status Records FoundNo Status Records Found INFORMATION SOURCE (unrecogn ized section and content) DATE CREATED AUTHOR 01/07/2020 [facility] DATE CREATED AUTHOR AUTHOR'S ORGANIZ ATION 01/27/2021 [facility] DATE CREATED AUTHOR AUTHOR'S ORGANIZ ATION 05/11/2023 [facility] DATE CREATED AUTHOR AUTHOR'S ORGANIZ ATION 04/19/2024 [facility] DATE CREATED AUTHOR AUTHOR'S ORGANIZ ATION 05/25/2024 [facility] DATE CREATED AUTHOR AUTHOR'S ORGANIZ ATION 06/03/2024 [facility] Care Teams (unrecognized sec tion and content) Desk Sergeant Relationship Specialty Start Date End Date Zuly Bruno CNP PCP - General 07/19/18 Comfort Rivera [facility] [address] [place] [address] Pharmacist Pharmacist 05/16/20 Angel Carpio, [facility],PharmD Pharmacist Pharmacist 05/16/20 Te Leigh [facility],PharmD Pharmacist Pharmacist 01/09/21 Desk Sergeant Relationship Specialty Start Date End Date Zuly Bruno CNP PCP - General 07/19/18 Comfort Rivera, [address] [place] [address] Pharmacist Pharmacist 05/16/20 Angel Carpio, [facility],PharmD Pharmacist Pharmacist 05/16/20 Te Leigh [facility],PharmD Pharmacist Pharmacist 01/09/21 Desk Sergeant Relationship Specialty Start Date End Date Zuly Bruno CNP PCP - General 07/19/18 Desk Sergeant Relationship Specialty Start Date End Date Zuly Bruno CNP PCP - General 07/19/18 Desk Sergeant Relationship Specialty Start Date End Date Zuly Bruno CNP PCP - General 07/19/18 Desk Sergeant Relationship Specialty Start Date End Date Zuly Bruno CNP PCP - General 07/19/18 Desk Sergeant Relationship Specialty Start Date End Date Zuly Bruno CNP PCP - General 07/19/18 Desk Sergeant Relationship Specialty Start Date End Date Zuly Bruno CNP PCP - General 07/19/18 Desk Sergeant Relationship Specialty Start Date End Date Zuly Bruon CNP PCP - General 07/19/18 Desk Sergeant Relationship Specialty Start Date End Date Zuly Bruno CNP PCP - General 07/19/18 Desk Sergeant Relationship Specialty Start Date End Date Zuly Bruno CNP PCP - General 07/19/18 Desk Sergeant Relationship Specialty Start Date End Date Zuly Bruno CNP PCP - General 07/19/18 Desk Sergeant Relationship Specialty Start Date End Date Zuly Bruno CNP PCP - General 07/19/18 Desk Sergeant Relationship Specialty Start Date End Date Zuly Bruno CNP PCP - General 07/19/18 Desk Sergeant Relationship Specialty Start Date End Date Zuly Bruno CNP PCP - General 07/19/18 Desk Sergeant Relationship Specialty Start Date End Date Zuly Bruno CNP PCP - General 07/19/18 Desk Sergeant Relationship Specialty Start Date End Date Zuly Bruno CNP PCP - General 07/19/18 Evan White DO [facility] [place] [address] Infectious Disease Infectious Disease 09/09/23 Desk Sergeant Relationship Specialty Start Date End Date Zuly Bruno CNP PCP - General 07/19/18 Evan White DO [facility] [place] [address] Infectious Disease Infectious Disease 09/09/23 Desk Sergeant Relationship Specialty Start Date End Date Zuly Bruno CNP PCP - General 07/19/18 Evan White DO [facility] [place] [address] Infectious Disease Infectious Disease 09/09/23 Desk Sergeant Relationship Specialty Start Date End Date Momo Verdugo MD PCP - General Family Medicine 05/21/23 Desk Sergeant Relationship Specialty Start Date End Date Momo Verdugo MD PCP - General Family Medicine 05/21/23 Desk Sergeant Relationship Specialty Start Date End Date Momo Verdugo MD PCP - General Family Medicine 05/21/23 Desk Sergeant Relationship Specialty Start Date End Date Zuly Bruno CNP PCP - General 07/19/18 Evan White DO [facility] [place] [id number] Infectious Disease Infectious Disease 09/09/23 Desk Sergeant Relationship Specialty Start Date End Date Zuly Bruno CNP PCP - General 07/19/18 [facility] [place] [address] Infectious Disease Infectious Disease 09/09/23 Desk Sergeant Relationship Specialty Start Date End Date Zuly Bruno CNP PCP - General 07/19/18 Evan White DO [facility] [place] [address] Infectious Disease Infectious Disease 09/09/23 Desk Sergeant Relationship Specialty Start Date End Date Zuly Bruno CNP PCP - General 07/19/18 Evan White DO [address] [place] [address] Infectious Disease Infectious Disease 09/09/23 Desk Sergeant Relationship Specialty Start Date End Date Zuly Bruno CNP PCP - General 07/19/18 Evan White DO [address] [place], [place] [id number] Infectious Disease Infectious Disease 09/09/23 Desk Sergeant Relationship Specialty Start Date End Date Zuly Bruno CNP PCP - General 07/19/18 Desk Sergeant Relationship Specialty Start Date End Date Zuly Bruno CNP PCP - General 07/19/18 Desk Sergeant Relationship Specialty Start Date End Date Zuly Bruno CNP PCP - General 07/19/18 Desk Sergeant Relationship Specialty Start Date End Date Zuly Bruno CNP PCP - General 07/19/18 Desk Sergeant Relationship Specialty Start Date End Date Zuly [...] Leon Cook, RN)1502 (Given - Provider: Leon Cook RN) [...] modification) on Thu05/16/22 at 0900, Until Discontinued 809 (Not Given - Provider: Mel Hampton RN [...] Girish Nunez RN - Reason: Patient/family refused) 08 (Not Given - Provider: Terra [facility] RN [...] at 0900, Until Discontinued, On hold since [facility] 01/21/2024 at 0802 until manually unheld 0802 [...] - Reason: Transfer to a Procedural area)1414 ([facility] Unhold - Provider: Automatic Transfer)2008 [...] - Reason: Transfer to a Procedural area)141 ([facility] Unhold - Provider: Automatic Transfer) tacrolimus (PROGRAF) susp 0.2 mg 0.2 mg, Oral, CUSTOM FREQUENCY (Once per day on Thursday), First dose on Thu01/16/24 at 0900, Until Discontinued, Caution check route of administration. For sublingual administration, place liquid under tongue and allow absorption. 0842 (Given - Provider: Erica Gudino RN) 105 ([facility] Hold - Provider: Automatic Transfer - Reason: Transfer to a Procedural area)141 ([facility] Unhold - Provider: Automatic Transfer) 09 (Given - Provider: [facility] RN) Tamsulosin HCl (FLOMAX) capsule 0.4 mg 0.4 mg, Oral, DAILY, First dose on Thu01/16/24 at 0900, Until Discontinued, Slow release product. Do not chew or crush 0842 (Given - Provider: Erica Gudino RN) 0841 (Given - Provider: [facility] RN)105 ([facility] Hold - Provider: Automatic Transfer - Reason: Transfer to a Procedural area)141 ([facility] Unhold - Provider: Automatic Transfer) [...] 0841 (Given - Provider: [facility], SAMI)1053 ([facility] Hold - Provider: Automatic Transfer - Reason: Transfer to a Procedural area)1414 ([facility] Unhold - Provider: Automatic Transfer) [...] from all sources in 24 hours. 1053 ([facility] Hold - Provider: Automatic Transfer - Reason: Transfer to a Procedural area)1414 ([facility] Unhold - Provider: Automatic Transfer)1806 [...] 200-200 mg and Simethicone 20 mg) 1053 ([facility] Hold - Provider: Automatic Transfer - Reason: Transfer to a Procedural area)1414 ([facility] Unhold - Provider: Automatic Transfer) guaiFENesin (ROBITUSSIN) oral solution 400 mg 400 mg, Oral, EVERY 6 HOURS NEEDED, Starting on 01/16/24 at 0202, Until 01/23/24 at 1752, Cough, Congestion 1053 ([facility] Hold - Provider: Automatic Transfer - Reason: Transfer to a Procedural area)1414 ([facility] Unhold - Provider: Automatic Transfer) [...] Pain 1441 (Given - Provider: [facility], SAMI)1926 (Given - Provider: [facility], SAMI) 0427 (Given - Provider: Tati Ahmadi RN)0917 (Given - Provider: [facility], SAMI)1312 (Given - Provider: [facility], SAMI) Polyethylene glycol (MIRALAX) packet 17 g 17 g, Oral, DAILY NEEDED, Starting on 01/16/24 at 0202, Until 01/23/24 at 1752, Constipation 1st Line 1053 ([facility] Hold - Provider: Automatic Transfer - Reason: Transfer to a Procedural area)1414 ([facility] Unhold - Provider: Automatic Transfer) Prochlorperazine (COMPAZINE) injection 10 mg 10 mg, Intravenous, EVERY 6 HOURS NEEDED, Starting on 01/17/24 at 1538, Until 01/23/24 at 1752, Nausea / Vomiting, Refractory Nausea Vomiting, For IV route: dilute dose with 10mL normal saline and give by slow IV push at a rate of 5mg/min. Maximum of 40mg/day. 1053 ([facility] Hold - Provider: Automatic Transfer - Reason: Transfer to a Procedural area)1414 ([facility] Unhold - Provider: Automatic Transfer)2349 [...] the intermittent or piggy back medication. 1053 ([facility] Hold - Provider: Automatic Transfer - Reason: Transfer to a Procedural area)1414 ([facility] Unhold - Provider: Automatic Transfer) [...] BE BASED ON THE PRIMARY CLINICAL RECORDS. [employer] [facility]. provides no warranty or guarantee of the accuracy or completeness of information in this document.
[2024-06-20 07:10] LABS: Basophils Percent Auto 0.7 % (0.2-2.0); Eosinophils Absolute Auto 0.2 10^3/uL (0.0-0.7); Eosinophils Percent Auto 4.9 % (0.9-7.0); Hematocrit 46.6 % (42.0-54.0); Hemoglobin 15.1 g/dL (14.0-18.0); Immature Granulocytes Abs Auto 0.01 10^3/uL (0.00-0.03); Immature Granulocytes Pct Auto 0.2 % (0.0-0.5); Lymphocytes Absolute Auto 1.3 10^3/uL (1.2-3.8); Lymphocytes Percent Auto 29.6 % (20.5-60.0); Mean Corpuscular HGB Conc 32.4 g/dL (29.9-35.2); Mean Corpuscular Hemoglobin 29.3 pg (25.9-34.0); Mean Corpuscular Volume 90.5 fL (80.0-94.0); Mean Platelet Volume 9.8 fL (9.5-13.5); Monocytes Absolute Auto 0.5 10^3/uL (0.3-0.8); Neutrophils Absolute Auto 2.3 10^3/uL (1.4-6.5); Neutrophils Percent Auto 53.6 % (43.0-75.0); Platelet Count 215 10^3/uL (150-450); Red Blood Count 5.15 10^6/uL (4.70-6.10); Red Cell Distribution Width 12.1 % (11.0-15.0); White Blood Count 4.3 10^3/uL (4.0-11.0)
[2024-06-20 07:16] LABS: Creatinine Urine Random 96.66 mg/dL (20.00-300.00); Protein Creatinine Ratio Urine 0.18; Total Protein Urine Random 17.3 mg/dL (<=11.9)
[2024-06-20 07:43] LABS: Alanine Aminotransferase 17 U/L (16-63); Albumin Level 3.9 g/dL (3.4-5.0); Alkaline Phosphatase 110 U/L (46-116); Anion Gap 12.1; Aspartate Amino Transferase 19 U/L (15-37); BUN Creatinine Ratio 14.3; Bilirubin Direct 0.2 mg/dL (0.0-0.2); Bilirubin Total 0.9 mg/dL (0.2-1.0); Calcium 9.4 mg/dL (8.5-10.1); Carbon Dioxide 26.8 mmol/L (21.0-32.0); Chloride 106 mmol/L (98-107); Estimated GFR (African America >60 (>=60); Estimated GFR (Non-African Ame >60 (>=60); Gamma Glutamyl Transpeptidase 18 U/L (15-85); Glucose 105 mg/dL (74-106); Magnesium 2.1 mg/dL (1.8-2.4); Phosphorus 2.9 mg/dL (2.6-4.7); Potassium 3.9 mmol/L (3.5-5.1); Sodium 141 mmol/L (136-145)
[2024-06-22 07:10] LABS: Tacrolimus (FK506), Blood 1.7 ng/mL (2.0-20.0)
== END 2024-06-20 06:44 | disposition home or self-care (01) ==
LOC: LAB 06:43
PROVIDERS: PCP Nurse Practitioner
DX: Z94.0 Kidney transplant status (principal); Z94.4 Liver transplant status; R79.9 Abnormal finding of blood chemistry, unspecified; Z48.298 Encounter for aftercare following other organ transplant
CPT/HCPCS: 36415; 80048; 80197; 82042; 82247; 82248; 82570; 82977; 83735; 84075; 84100; 84156; 84450; 84460; 85025

== ENCOUNTER 2024-06-27 06:35 | Outpatient (OUT) | payer MEDICARE, MEDICAID, SELFPAY ==
--- OUTSIDE RECORDS SUMMARY | 2024-06-27 06:42 | XMS_ITS | CCD ---
Author Organization [facility] Care Team Providers Care Medical Sales Representative Name Role Phone Kiana Zuly Unavailable [...] Unavailable AICHHOLZ, ZULY Primary Care Unavailable Aichholz [facility] Primary Care Provider Miguel RPComfort Unavailable Shirin [facility],PharmD, Angel Unavailable Unavailab makayla Leigh [facility],PharmD, Te Unavailable Unavai lable [facility]icholz [facility] Provider CHANDUC, DR BURCH Admitting Unavailable MISC, DR BURCH Consulting Unavailable AICHHOLZ, MAINTENANCE LEADER ZULY Primary Care Unavailable MISC, DR BURCH Attending Unavailable MISC, DR BURCH Admitting Unavailable MISC, DR BURCH Consulting Unavailable AICHHOLZ, MAINTENANCE LEADER ZULY Primary Care Unavailable MISC, DR BURCH Attending Unavailable ARCELIA PIZARRO Consulting Unavailable KE BURNHAM Attending Unavailable KE BURNHAM Admitting Unavailable BARBARA, DR MÓNICA Munoz Consulting Unavailable AICHHOLZ, MAINTENANCE LEADER ZULY Primary Care Unavailable KE BURNHAM Consulting Unavailable MISC, DR BURCH Consulting Unavailable MISC, DR BURCH Attending Unavailable AICHHOLZ, MAINTENANCE LEADER ZULY Primary Care Unavailable MISC, DR BURCH Admitting Unavailable MISC, DR BURCH Consulting Unavailable MISC, DR BURCH Attending Unavailable AICHHOLZ, MAINTENANCE LEADER ZULY Primary Care Unavailable MISC, DR BURCH Admitting Unavailable MISC, DR BURCH Consulting Unavailable AICHHOLZ, MAINTENANCE LEADER ZULY Primary Care Unavailable MISC, DOCTOR Admitting Unavailable MISC, DR DOCTOR Attending Unavailable MELINDA, DR GEORGE Munoz Consulting Unavailable MELINDA, DR GEORGE Munoz Attending Unavailable AICHHOLZ, MAINTENANCE LEADER ZULY Primary Care Unavailable MELINDA, DR GEORGE Munoz Admitting Unavailable NAUN ., KE Consulting Unavailable MIRANDA, LYNDSAY Consulting Unavailable MELINDA, DR GEORGE Munoz Consulting Unavailable NAUN ., KE Attending Unavailable NAUN ., KE Admitting Unavailable AICHHOLZ, MAINTENANCE LEADER ZULY Primary Care Unavailable NAUN ., KE Consulting Unavailable GIAN HERRING Consulting Unavailable AICHHOLZ, MAINTENANCE LEADER ZULY Consulting Unavailable AICHHOLZ, MAINTENANCE LEADER ZULY Attending Unavailable AICHHOLZ, MAINTENANCE LEADER ZULY Admitting Unavailable AICHHOLZ, MAINTENANCE LEADER ZULY Primary Care Unavailable MISC, DR DOCTOR Consulting Unavailable MISC, DOCTOR Admitting Unavailable MISC, DOCTOR Attending Unavailable AICHHOLZ, MAINTENANCE LEADER ZULY Primary Care Unavailable MISC, DR DOCTOR Consulting Unavailable MISC, DR DOCTOR Attending Unavailable MISC, DOCTOR Admitting Unavailable AICHHOLZ, MAINTENANCE LEADER ZULY Primary Care Unavailable MISC, DOCTOR Admitting Unavailable MISC, DOCTOR Consulting Unavailable MISC, DR DOCTOR Attending Unavailable AICHHOLZ, MAINTENANCE LEADER ZULY Primary Care Unavailable MISC, DOCTOR Admitting Unavailable MISC, DR DOCTOR Consulting Unavailable AICHHOLZ, MAINTENANCE LEADER ZULY Primary Care Unavailable MISC, DR DOCTOR Attending Unavailable MISC, DOCTOR Admitting Unavailable MISC, DOCTOR Consulting Unavailable AICHHOLZ, MAINTENANCE LEADER ZULY Primary Care Unavailable MISC, DR DOCTOR Attending Unavailable AICHHOLZ, MAINTENANCE LEADER ZULY Consulting Unavailable AICHHOLZ, MAINTENANCE LEADER ZULY Attending Unavailable AICHHOLZ, MAINTENANCE LEADER ZULY Admitting Unavailable AICHHOLZ, MAINTENANCE LEADER ZULY Primary Care Unavailable DR MÓNICA JIMENEZ Consulting Unavailable Aichholz [facility], Zuly Primary Care Provider [phone] Evan White DO Unavailable [phone] [facility], Zuly Primary Care Provider Tran White DOs A Unavailable Momo Verdugo MD Primary Care Provider Aichholz MAINTENANCE LEADER, Zuly Primary Care Provider AICHHOLZ, ZULY Attending [...] ZULY Attending Unavailable MIGUEL CARDONA Attending Unavailable YEISONVELIAAY S Attending Unavailable YEISON, STEVE S Referring Unavailable AICHHOLZ, ZULY Primary Care Unavailable HAKEEM ALAMO Attending Unavailable EVAN WHITE Referring Unavailabl e AICHHOLZ, ZULY Primary Care Unavailable AICHHOLZ, ZULY Primary Care Unavailable CANDIE ALMAGUER Attending Unavailable TARA, KELVIN K Referring Unavailable AICHHOLZ, ZULY Primary Care Unavailable AICHHOLZ, ZULY Primary Care Unavailable AICHHOLZ, ZULY Primary Care Unavailable AICHHOLZ, ZULY Primary Care Unavailable CANDIE ALMAGUER Attending Unavailable TARA, KELVIN K Referring Unavailable AICHHOLZ, ZULY Primary Care Unavailable HAKEEM ALAMO Attending Unavailable SELF, SELF Referring Unavailable NIKI, KEVIN Attending Unavailable CONSULT, INFECTIOUS DISEASE Consulting Unav ailable YEISON, STEVE S Admitting Unavailable YEISON, STEVE S Referring Unavailable AICHHOLZ, ZULY Primary Care Unavailable NIKI, KEVIN Admitting Unavailable TARA, KELVIN K Attending Unavailable CONSULT, HEPATOBILIARY Consulting Unavailab le SYSTEM, PROVIDER NOT IN Referring Unavaila ble AICHHOLZ, ZULY Primary Care Unavailable SELF, SELF Referring Unavailable REBECA GUTIERREZ Attending Unavailable AICHHOLZ, ZULY Primary Care Unavailable SOBOTKA, DAISHA A Attending Unavailable SELF, SELF Referring Unavailable ZULY BRUNO Primary Care Unavailable Allergies Allergy Classification Reported Allergen(s) Allergy Type Date of Onset Reaction(s) Facility (2 sources) Shellfish; Translations: [SHELLFISH DERIVED] Propensity to adverse reactions (disorder) 8 [facility] Repository (20 sources) Shellfish-Derive d Products Propensity to adverse reactions to drug 9 [facility] (1 source) Shellfish Drug allergy (disorder) [facility] Repository Medications Current Medications Medication [...] 1 capsule by mouth once daily b eifkqsh-N-hmnne acid (NEPHROCAPS) 1 MG capsule Take 1 [...] ankle pain. 0 06/12/2020 06/12/2023 Discontinued lactulose 03543 mg powder for oral solution (19 sources) [...] 07/17/2018 Active take 2 tablets by mo [facility] three times daily at mealtime [...] daily. 0 08/26/2023 Suspended Start: 07-07-2022 End: 08-08-2022 sulfamethoxazole-trimethopri m (BACTRIM DS) 800-160 MG per tablet 1 tablet tacrolimus 0.2 mg granules for oral suspension (20 sources) Calcineurin Inhibitor Immunosuppressant Start: 06-22-2024 take 1 dose by mouth once Tacrolimus 0.2 MG Pack Mix 1 packet (0.2 mg) as directed and take by mouth every Thursday, Thursday and Thursday. 12 Each 5 06/22/2024 Active Start: 06-17-2024 End: 09-03-2024 Tacrolimus 0.2 MG [...] or crush torsemide 20 mg oral tablet (16 sources) Loop Diuretic Start: 04-15-2024 take 1 [...] itraconazole Fax results to: Dr. White - [phone] [facility] - [phone] Each 09/10/2023 01/19/2024 Discontinued (Medication Reconciliation (suppress cancel msg)) Start: 09-10-2023 CUSTOM MEDICAT ION Labs to be obtained: 1- Tacrolimus level, trough - collect twice weekly until 09/24/23, then weekly until 10/08/23, them once every two weeks there after. 2- Itraconazole level - obtain once between 09/14-09/18. 3- Chem 6 - Obtain weekly while on itraconazole Fax results to: Dr. White - [phone] [facility] - [phone] Each 0 09/10/2023 Active Diatrizoate (1 [...] 01/16/2023 Discontinued take 2 tablets by mo [facility] in the morning magnesium oxide [...] (ROXICODONE) tablet 10 mg polyethylene glycol 3350 98174 mg powder for oral solution (20 sources) [...] rate of 5mg/min. Maximum of 40mg/day. 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] Episodic Other aftercare (1 [...] Translations: [Liver disease, unspecified] 06-17-2024 Chronic Other liver diseases (2 sources) Liver disease, unspecified; Translations: [Liver disease, unspecified] Onset: 4 Chronic Other lower respiratory disease (1 source) [...] (noninflammatory); Translations: [Other pericardial effusion (noninflammatory)] Onset: Past or Other Problems Problem Classification Problem [...] 05-10-2020 Episodic Other aftercare (2 sources) 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; 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: [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 THERAPY] Onset: 07-06-2022 Episodic Other aftercare (1 source) penit[facility]iary (current) use of aspirin; Translations: [SUPERVISOR ENDLESS TRACK VEHICLE CURRENT USE OF ASPIRIN] Onset: 06-20-2022 Episodic [...] 06-22-2018 06-22-2018 Episodic Pleurisy; pneumothorax; pulmonary collapse (18 sources) Pleural effusion; Translations: [Pleural effusion, not [...] Translations: [Acute respiratory failure with hypoxia] Onset: 09-29-2023 Screening and history of mental health and [...] Other [facility] (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; 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 Normal [facility] Office Visiton 05-13-2024 Follow-up visit [id number] George Styles 1970 M Date Provider Department Center 05/13/2024 [facility] Family History Problem Relation Age of Onset Coronary artery disease Mother Coronary artery disease Father Family Status - Relation Status Age at Mother Father Level of Service:36447 NC OFFICE/OUTPATIENT ESTABLISHED LOW MDM 20 MIN Reason for Visit and Comments: Follow-up [243211] - Yearly follow up Normal [facility] B-TYPE NATRIURETIC PEPTIDE ( BRAIN)on 02-26-2024 Interpretation and review of laboratory results Normal [facility] Natriuretic peptide B (Bld) [Mass/Vol] 72 pg/mL 0 - 100 pg/mL [facility] Natriuretic peptide B (Bld) [Mass/Vol] 72 pg/mL Normal 0-100 [facility] Comment on above: Performed By: #### B COPY DIRECTOR ####[facility] (DEFAULT)[address] [place] [address] CHEM 6 (LYTES, BUN CREA)on 0 02-26-2024 Anion gap [Moles/Vol] 13 mmol/L 7 - 17 mmol/L [facility] Chloride [Moles/Vol] 107 mmol/L 98 - 10 8 mmol/L [facility] CO2 [Moles/Vol] 25 mmol/L 21 - 31 mmol/L [facility] Creatinine [Mass/Vol] 1.23 mg/dL 0.70 - 1.30 mg/dL [facility] eGFR, CKD-EPI, Male 71 - PINF [facility] Comment on above: Reported eGFR is bas ed on the CKD-EPI 2020 equation using creatinine, age, and sex. Potassium [Moles/Vol] 4.2 mmol/L 3.5 - 5.0 mmol/L [facility] Sodium [Moles/Vol] 141 mmol/L 135 - 145 mmol/L [facility] Urea nitrogen [Mass/Vol] 17 mg/dL 7 - 25 mg/dL [facility] Urea nitrogen/Creatinine [Mass ratio] 14 mg/mg [facility] Anion gap [Moles/Vol] 13 mmol/L Normal 7-17 [facility] Comment on above: Performed By: #### C HM6 ####[facility] (DEFAULT)[address] [place] [address] Chloride [Moles/Vol] 107 mmol/L Normal 98-108 [facility] Comment on above: Performed By: #### C HM6 ####[facility] (DEFAULT)[address] [place] [address] CO2 [Moles/Vol] 25 mmol/L Normal 21-31 [facility] Comment on above: Performed By: #### C HM6 ####[facility] (DEFAULT)[address] [facility] [place] [address] Creatinine [Mass/Vol] 1.23 mg/dL Normal 0.70-1.30 [facility] Comment on above: Performed By: #### C HM6 ####[facility] (DEFAULT)[address] [place] [address] GFR/1.73 sq M.predicted among non-blacks MDRD (S/P/Bld) [Vol rate/Area] 70 mL/min/{1.73_m2} Normal >=60 [facility] Comment on above: Result Comment: Repo rted eGFR is based on the CKD-EPI 2020 equation using creatinine, age, and sex. Performed By: #### C HM6 ####[facility] (DEFAULT)[address] [facility] [place] [address] Potassium [Moles/Vol] 4.2 mmol/L Normal 3.5-5.0 [facility] Comment on above: Performed By: #### C HM6 ####[facility] (DEFAULT)[address] [facility] [place] [address] Sodium [Moles/Vol] 141 mmol/L Normal 135-145 [facility] Comment on above: Performed By: #### C HM6 ####[facility] (DEFAULT)[address] [facility] [place] [address] Urea nitrogen [Mass/Vol] 17 mg/dL Normal 7-25 [facility] Comment on above: Performed By: #### C HM6 ####[facility] (DEFAULT)[address] [facility] [place] [address] Urea nitrogen/Creatinine [Mass ratio] 14 mg/mg Normal [facility] Comment on above: Performed By: #### C HM6 ####[facility] (DEFAULT)[address] [facility] [place] [address] CBC,PLATELETSon 01-23-2024 Erythrocyte distribution width (RBC) [Ratio] 14.2 % 10.9 - 14.3 % [facility] Hematocrit (Bld) [Volume fraction] 37.0 % Low 39.6 - 48.8 % [facility] Hemoglobin (Bld) [Mass/Vol] 12.0 g/dL Low 13.4 - 16.8 g/dL [facility] Interpretation and review of laboratory results Abnormal [facility] MCH (RBC) [Entitic mass] 28.6 pg 26.1 - 33.3 pg [facility] MCHC (RBC) [Mass/Vol] 32.4 g/dL 31.9 - 36.5 g/dL [facility] MCV (RBC) [Entitic vol] 88.1 fL 79.0 - 94.5 fL [facility] Platelet mean volume (Bld) [Entitic vol] 10.4 fL 8.7 - 12.3 fL [facility] Platelets (Bld) [#/Vol] 170 10*3/uL 146 - 337 K/uL [facility] RBC (Bld) [#/Vol] 4.20 10*6/uL Low [facility] WBC (Bld) [#/Vol] 3.70 10*3/uL Low 3.73 - 10. 10 K/uL [facility] Hematocrit (Bld) [Volume fraction] 37.0 % Low 39.6-48.8 [facility] Comment on above: Performed By: #### H [facility] ####[facility] (DEFAULT)[address] [place] [address] Hemoglobin (Bld) [Mass/Vol] 12.0 g/dL Low 13.4-16.8 [facility] Comment on above: Performed By: #### H [facility] ####[facility] (DEFAULT)[address] [place] [address] MCV (RBC) [Entitic vol] 88.1 fL Normal 79.0-94.5 [facility] Comment on above: Performed By: #### H [facility] ####[facility] (DEFAULT)[address] [place] [address] Mean Cell Hgb 28.6 pg Normal 26.1-33.3 [facility] Comment on above: Performed By: #### H EMOGC ####[facility] (DEFAULT)[address] [place] [address] Mean Cell Hgb Conc 32.4 g/dL Normal 31.9-36.5 [facility] Comment on above: Performed By: #### H EMOGC ####[facility] (DEFAULT)[address] [facility] [place] [address] Platelet mean volume (Bld) [Entitic vol] 10.4 fL Normal 8.7-12.3 [facility] Comment on above: Performed By: #### H EMOGC ####[facility] (DEFAULT)[address] [facility] [place] [address] Platelets (Bld) [#/Vol] 170 10*3/uL Normal 146-337 [facility] Comment on above: Performed By: #### H EMOGC ####[facility] (DEFAULT)[address] [facility] [place] [address] RBC (Bld) [#/Vol] 4.20 10*6/uL Low 4.38-5.83 [facility] Comment on above: Performed By: #### H EMOGC ####[facility] (DEFAULT)[address] [facility] [place] [address] RBC Distribution 14.2 % Normal 10.9-14.3 [facility] Comment on above: Performed By: #### H EMOGC ####[facility] (DEFAULT)[address] [facility] [place] [address] WBC (Bld) [#/Vol] 3.70 10*3/uL Low 3.73-10.10 [facility] Comment on above: Performed By: #### H EMOGC ####[facility] (DEFAULT)[address] [place] [address] CHEM 7 (LYTES,BUN,CREA,GLUC) on 01-23-2024 Anion gap [Moles/Vol] 14 mmol/L 7 - 17 mmol/L [facility] Chloride [Moles/Vol] 105 mmol/L 98 - 10 8 mmol/L [facility] CO2 [Moles/Vol] 25 mmol/L 21 - 31 mmol/L [facility] Creatinine [Mass/Vol] 1.32 mg/dL High 0.70 - 1.30 mg/dL [facility] eGFR, CKD-EPI, Male 66 - PINF [facility] Comment on above: Reported eGFR is bas ed on the CKD-EPI 2020 equation using creatinine, age, and sex. Glucose [Mass/Vol] 94 mg/dL 70 - 99 mg/dL [facility] Osmolality Calc [Osmolality] 296 [facility] Potassium [Moles/Vol] 3.8 mmol/L 3.5 - 5.0 mmol/L [facility] Sodium [Moles/Vol] 140 mmol/L 135 - 145 mmol/L [facility] Urea nitrogen [Mass/Vol] 23 mg/dL 7 - 25 mg/dL [facility] Urea nitrogen/Creatinine [Mass ratio] 17 mg/mg [facility] Anion gap [Moles/Vol] 14 mmol/L Normal 7-17 [facility] Comment on above: Performed By: #### NATHANIEL RAMÍREZ, HFP ####[facility] (DEFAULT)[address] [place] [address] Chloride [Moles/Vol] 105 mmol/L Normal 98-108 [facility] Comment on above: Performed By: #### NATHANIEL RAMÍREZ, HFP ####[facility] (DEFAULT)[address] [place] [address] CO2 [Moles/Vol] 25 mmol/L Normal 21-31 [facility] Comment on above: Performed By: #### NATHANIEL RAMÍREZ, HFP ####[facility] (DEFAULT)[address] [place] [address] Creatinine [Mass/Vol] 1.32 mg/dL High 0.70-1.30 [facility] Comment on above: Performed By: #### NATHANIEL RAMÍREZ, HFP ####[facility] (DEFAULT)[address] [place] [address] GFR/1.73 sq M.predicted among non-blacks MDRD (S/P/Bld) [Vol rate/Area] 65 mL/min/{1.73_m2} Normal >=60 [facility] Comment on above: Result Comment: Repo rted eGFR is based on the CKD-EPI 2020 equation using creatinine, age, and sex. Performed By: #### NATHANIEL RAMÍREZ, HFP ####[facility] (DEFAULT)[address] [place] [address] Glucose [Mass/Vol] 94 mg/dL Normal 70-99 [facility] Comment on above: Performed By: #### NATHANIEL RAMÍREZ, HFP ####[facility] (DEFAULT)[address] [place] [address] Osmolality [Osmolality] 296 mosm/kg Normal 278-305 [facility] Comment on above: Performed By: #### NATHANIEL RAMÍREZ, HFP ####[facility] (DEFAULT)[address] [place] [address] Potassium [Moles/Vol] 3.8 mmol/L Normal 3.5-5.0 [facility] Comment on above: Performed By: #### NATHANIEL RAMÍREZ, HFP ####[facility] (DEFAULT)[address] [place] [address] Sodium [Moles/Vol] 140 mmol/L Normal 135-145 [facility] Comment on above: Performed By: #### NATHANIEL RAMÍREZ, HFP ####[facility] (DEFAULT)[address] [place] [address] Urea nitrogen [Mass/Vol] 23 mg/dL Normal 7-25 [facility] Comment on above: Performed By: #### M NATHANIEL BLOOM, HFP ####[facility] (DEFAULT)[address] [place] [address] Urea nitrogen/Creatinine [Mass ratio] 17 mg/mg Normal [facility] Comment on above: Performed By: #### NATHANIEL RAMÍREZ, HFP ####[facility] (DEFAULT)[address] [place] [address] GLUCOSE POCon 01-23-2024 Glucose [Mass/Vol] 88 mg/dL 70 - 99 mg/dL [facility] performed at ad dress of the patient encounter. [facility] Glucose [Mass/Vol] 191 mg/dL High 70 - 99 mg/dL [facility] Interpretation and review of laboratory results Abnormal [facility] POC Sample Type CAPBL [facility] Test performed at ad dress of the patient encounter. [facility] HEPATIC FUNCTION PANELon Albumin [Mass/Vol] 3.9 g/dL 3.5 - 5.0 g/dL [facility] ALP [Catalytic activity/Vol] 83 U/L 32 - 126 U/L [facility] ALT [Catalytic activity/Vol] 9 U/L Low 10 - 52 U/L [facility] AST [Catalytic activity/Vol] 17 U/L 10 - 39 U/L [facility] Bilirubin [Mass/Vol] 1.6 mg/dL High NINF - 1.5 mg/dL [facility] Bilirubin.direct [Mass/Vol] 0.4 mg/dL High NINF - 0.3 mg/dL [facility] Protein [Mass/Vol] 6.6 g/dL 6.4 - 8.3 g/dL [facility] Albumin [Mass/Vol] 3.9 g/dL Normal 3.5-5.0 [facility] Comment on above: Performed By: #### M MERLE CHM7, HFP ####[facility] (DEFAULT)[address] [place] [address] ALP [Catalytic activity/Vol] 83 U/L Normal 32-126 [facility] Comment on above: Performed By: #### M MERLE CHM7, HFP ####[facility] (DEFAULT)[address] [place] [address] ALT [Catalytic activity/Vol] 9 U/L Low 10-52 [facility] Comment on above: Performed By: #### M HELEN BLOOMM7, HFP ####[facility] (DEFAULT)[address] [place] [address] AST [Catalytic activity/Vol] 17 U/L Normal 10-39 [facility] Comment on above: Performed By: #### M HELEN BLOOMM7, HFP ####[facility] (DEFAULT)[address] [place] [address] Bilirubin [Mass/Vol] 1.6 mg/dL High <1.5 [facility] Comment on above: Performed By: #### M MERLE CHM7, HFP ####[facility] (DEFAULT)[address] [place] [address] Bilirubin.indirect [Mass/Vol] 0.4 mg/dL High <0.3 [facility] Comment on above: Performed By: #### M MERLE CHM7, HFP ####[facility] (DEFAULT)[address] [place] [address] Protein [Mass/Vol] 6.6 g/dL Normal 6.4-8.3 [facility] Comment on above: Performed By: #### M MERLE CHM7, HFP ####[facility] (DEFAULT)[address] [place] [address] ITRACONAZOLE LEVELon 024 Hydroxyitraconazole [Mass/Vol] 7.6 mcg/mL [facility] Comment on above: REFERENCE VALUE No therapeutic range established; activity and serum concentration are similar to parent drug. ADDITIONAL INFORMATION This test was developed and its performance characteristics determined by [facility] in a manner consistent with CLIA requirements. This test has not been cleared or approved by the U.[place]. Food and Drug Administration. Test Performed by: [facility] [address] [place], [place] [id number] Conversion Developer: Rosendo Bose M.D. Ph.D.; CLIA# [id number] Itraconazole [Mass/Vol] 6.0 mcg/mL [facility] Comment on above: REFERENCE VALUE >0.5 (localized infection), >1.0 (systemic infection) [facility] MAGNESIUMon 01-23-2024 Interpretation and review of laboratory results Normal [facility] Magnesium [Mass/Vol] 1.8 mg/dL 1.6 - 2 .6 mg/dL [facility] Magnesium [Mass/Vol] 1.8 mg/dL Normal 1.6-2.6 [facility] Comment on above: Performed By: #### M MERLE, CHM7, [facility] ####[facility] (DEFAULT)[address] [place] [address] No Panel Informationon 01-23 Interpretation and review of laboratory results Abnormal [facility] TACROLIMUS LEVEL, TROUGH (NC E DRUG LEVEL)on 01-23-2024 Interpretation and review of laboratory results Normal [facility] Tacrolimus (Bld) [Mass/Vol] 7.0 ng/mL Bone Marrow Transplant: 4.0-12.0, Therapeutic: 5.0-15.0 [facility] Method performed is a chemiluminescent microparticle immunoasssay on the [employer] i2000. The range is based on experience at [facility] and users should be aware that target concentrations vary widely depending on concomitant therapy, time post-transplant, and desired degree of immunosuppression. [facility] Tacrolimus, Trough 7.0 ng/mL Normal Bone Susana ow Transplant: 4.0-12.0, Therapeutic: 5.0-15.0 [facility] Comment on above: Order Comment: Pleas e draw at specified interval PRIOR to dose. Do not hold dose to wait for level. Specimens batched twice per day, (M-) and once per day weekendsMethod performed is a chemiluminescent microparticle immunoasssay on the [employer] i2000.The range is based on experience at [facility] and users should be aware that target concentrations vary widely depending on concomitant therapy, time post-transplant, and desired degree of immunosuppression. Performed By: #### T ACRO ####[facility] (DEFAULT)[address] [place] [address] CARDIAC RHYTHM (SCANNED)on 0 01-22-2024 [facility] CBC,PLATELETSon 01-22-2024 Erythrocyte distribution width (RBC) [Ratio] 14.1 % 10.9 - 14.3 % [facility] Hematocrit (Bld) [Volume fraction] 41.5 % 39.6 - 48.8 % [facility] Hemoglobin (Bld) [Mass/Vol] 13.3 g/dL Low 13.4 - 16.8 g/dL [facility] Interpretation and review of laboratory results Abnormal [facility] MCH (RBC) [Entitic mass] 27.8 pg 26.1 - 33.3 pg [facility] MCHC (RBC) [Mass/Vol] 32.0 g/dL 31.9 - 36.5 g/dL [facility] MCV (RBC) [Entitic vol] 86.8 fL 79.0 - 94.5 fL [facility] Platelet mean volume (Bld) [Entitic vol] 10.5 fL 8.7 - 12.3 fL [facility] Platelets (Bld) [#/Vol] 186 10*3/uL 146 - 337 K/uL [facility] RBC (Bld) [#/Vol] 4.78 10*6/uL [facility] WBC (Bld) [#/Vol] 3.74 10*3/uL 3.73 - 10. 10 K/uL [facility] Hematocrit (Bld) [Volume fraction] 41.5 % Normal 39.6-48.8 [facility] Comment on above: Performed By: #### H EMO ####[facility] (DEFAULT)[address] [place] [address], [place] [address] Hemoglobin (Bld) [Mass/Vol] 13.3 g/dL Low 13.4-16.8 [facility] Comment on above: Performed By: #### H EMO ####[facility] (DEFAULT)[address] [place] [address] MCV (RBC) [Entitic vol] 86.8 fL Normal 79.0-94.5 [facility] Comment on above: Performed By: #### H EMOGC ####[facility] (DEFAULT)[address] [place] [address] Mean Cell Hgb 27.8 pg Normal 26.1-33.3 [facility] Comment on above: Performed By: #### H EMO ####[facility] (DEFAULT)[address] [place] [address] Mean Cell Hgb Conc 32.0 g/dL Normal 31.9-36.5 [facility] Comment on above: Performed By: #### H EMOGC ####[facility] (DEFAULT)[address] [facility] [place] [address] Platelet mean volume (Bld) [Entitic vol] 10.5 fL Normal 8.7-12.3 [facility] Comment on above: Performed By: #### H [facility] ####[facility] (DEFAULT)[address] [place] [address] Platelets (Bld) [#/Vol] 186 10*3/uL Normal 146-337 [facility] Comment on above: Performed By: #### H EMO ####[facility] (DEFAULT)[address] [place] [address] RBC (Bld) [#/Vol] 4.78 10*6/uL Normal 4.38-5.83 [facility] Comment on above: Performed By: #### H [facility] ####[facility] (DEFAULT)[address] [place] [address] RBC Distribution 14.1 % Normal 10.9-14.3 [facility] Comment on above: Performed By: #### H [facility] ####[facility] (DEFAULT)[address] [place] [address] WBC (Bld) [#/Vol] 3.74 10*3/uL Normal 3.73-10.10 [facility] Comment on above: Performed By: #### H [facility] ####[facility] (DEFAULT)[address] [place] [address] CHEM 7 (LYTES,BUN,CREA,GLUC) on 01-22-2024 Anion gap [Moles/Vol] 13 mmol/L 7 - 17 mmol/L [facility] Chloride [Moles/Vol] 109 mmol/L High 98 - 10 8 mmol/L [facility] CO2 [Moles/Vol] 23 mmol/L 21 - 31 mmol/L [facility] Creatinine [Mass/Vol] 1.10 mg/dL 0.70 - 1.30 mg/dL [facility] eGFR, CKD-EPI, Male 81 - PINF [facility] Comment on above: Reported eGFR is bas ed on the CKD-EPI 2020 equation using creatinine, age, and sex. Glucose [Mass/Vol] 84 mg/dL 70 - 99 mg/dL [facility] Interpretation and review of laboratory results Abnormal [facility] Osmolality Calc [Osmolality] 295 [facility] Potassium [Moles/Vol] 4.0 mmol/L 3.5 - 5.0 mmol/L [facility] Sodium [Moles/Vol] 141 mmol/L 135 - 145 mmol/L [facility] Urea nitrogen [Mass/Vol] 16 mg/dL 7 - 25 mg/dL [facility] Urea nitrogen/Creatinine [Mass ratio] 15 mg/mg [facility] Anion gap [Moles/Vol] 13 mmol/L Normal 7-17 [facility] Comment on above: Performed By: #### Rod BLOOM CHM7 ####[facility] (DEFAULT)[address] [facility] [place] [address] Chloride [Moles/Vol] 109 mmol/L High 98-108 [facility] Comment on above: Performed By: #### Rod BLOOM CHM7 ####[facility] (DEFAULT)[address] [facility] [place] [address] CO2 [Moles/Vol] 23 mmol/L Normal 21-31 [facility] Comment on above: Performed By: #### Rod BLOOM CHM7 ####[facility] (DEFAULT)[address] [place] [address] Creatinine [Mass/Vol] 1.10 mg/dL Normal 0.70-1.30 [facility] Comment on above: Performed By: #### Rod BLOOM CHM7 ####[facility] (DEFAULT)[address] [facility] [place] [address] GFR/1.73 sq M.predicted among non-blacks MDRD (S/P/Bld) [Vol rate/Area] 81 mL/min/{1.73_m2} Normal >=60 [facility] Comment on above: Result Comment: Repo rted eGFR is based on the CKD-EPI 2020 equation using creatinine, age, and sex. Performed By: #### TJ RAMÍREZ7 ####[facility] (DEFAULT)[address] [place] [address] Glucose [Mass/Vol] 84 mg/dL Normal 70-99 [facility] Comment on above: Performed By: #### TJ RAMÍREZ7 ####[facility] (DEFAULT)[address] [place] [address] Osmolality [Osmolality] 295 mosm/kg Normal 278-305 [facility] Comment on above: Performed By: #### TJ RAMÍREZ7 ####[facility] (DEFAULT)[address] [facility] [place] [address] Potassium [Moles/Vol] 4.0 mmol/L Normal 3.5-5.0 [facility] Comment on above: Performed By: #### NATHANIEL RAMÍREZ ####[facility] (DEFAULT)[address] [facility] [place] [address] Sodium [Moles/Vol] 141 mmol/L Normal 135-145 [facility] Comment on above: Performed By: #### TJ RAMÍREZ7 ####[facility] (DEFAULT)[address] [facility] [place] [address] Urea nitrogen [Mass/Vol] 16 mg/dL Normal 7-25 [facility] Comment on above: Performed By: #### TJ RAMÍREZ7 ####[facility] (DEFAULT)[address] [facility] [place] [address] Urea nitrogen/Creatinine [Mass ratio] 15 mg/mg Normal [facility] Comment on above: Performed By: #### TJ RAMÍREZ7 ####[facility] (DEFAULT)[address] [place] [address] MAGNESIUMon 01-22-2024 Interpretation and review of laboratory results Normal [facility] Magnesium [Mass/Vol] 2.0 mg/dL 1.6 - 2 .6 mg/dL [facility] Magnesium [Mass/Vol] 2.0 mg/dL Normal 1.6-2.6 [facility] Comment on above: Performed By: #### M MERLE CH7 ####[facility] (DEFAULT)[address] [place] [address] No Panel Informationon 01-22 [facility] PT,INR,PTTon 01-22-2024 aPTT Coag (PPP) [Time] 29.2 s [facility] INR Coag (Bld) [Relative time] 1.1 {INR} 0.9 - 1.1 [facility] Interpretation and review of laboratory results Abnormal [facility] PT Coag (PPP) [Time] 14.3 s High [facility] aPTT Coag (Bld) [Time] 29.2 s Normal 24.0-34.3 [facility] Comment on above: Performed By: #### P TPTT ####[facility] (DEFAULT)[address] [place] [address] INR Coag (PPP) [Relative time] 1.1 {INR} Normal 0.9-1.1 [facility] Comment on above: Performed By: #### P TPTT ####[facility] (DEFAULT)[address] [place] [address] PT Coag (PPP) [Time] 14.3 s High 11.9-14.2 [facility] Comment on above: Performed By: #### P TPTT ####[facility] (DEFAULT)[address] [place] [address] TACROLIMUS LEVEL, TROUGH (NC E DRUG LEVEL)Ordered By: Sheree Jensen on 01-22-2024 Interpretation and review of laboratory results Normal [facility] Tacrolimus (Bld) [Mass/Vol] 7.9 ng/mL Bone Marrow Transplant: 4.0-12.0, Therapeutic: 5.0-15.0 [facility] Method performed is a chemiluminescent microparticle immunoasssay on the [employer] i2000. The range is based on experience at [facility] and users should be aware that target concentrations vary widely depending on concomitant therapy, time post-transplant, and desired degree of immunosuppression. [facility] TACROLIMUS LEVEL, TROUGH (NC E DRUG LEVEL)on 01-22-2024 Tacrolimus, Trough 7.9 ng/mL Normal Bone Susana ow Transplant: 4.0-12.0, Therapeutic: 5.0-15.0 [facility] Comment on above: Order Comment: Pleas e draw at specified interval PRIOR to dose. Do not hold dose to wait for level. Specimens batched twice per day, (M-F) and once per day weekendsMethod performed is a chemiluminescent microparticle immunoasssay on the [employer] i2000.The range is based on experience at [facility] and users should be aware that target concentrations vary widely depending on concomitant therapy, time post-transplant, and desired degree of immunosuppression. Performed By: #### T ACRO ####[facility] (DEFAULT)[address] [place] [address] TYPE AND SCREENon 01-22-2024 ABO/RH(D) TYPE Positive [facility] ABO/RH(D) TYPE Positive Normal [facility] Comment on above: Performed By: #### X M ####[facility] (DEFAULT)[address] [place] [address] [place] Unspecified body regionOr dered By: Unassigned Pacs on 01-22-2024 [facility] Work Phone: [place] Unspecified body regionon 01-22-2024 Radiology Study observation (narrative) [facility] CBC,PLATELETSon 01-21-2024 Erythrocyte distribution width (RBC) [Ratio] 14.0 % 10.9 - 14.3 % [facility] Hematocrit (Bld) [Volume fraction] 39.4 % Low 39.6 - 48.8 % [facility] Hemoglobin (Bld) [Mass/Vol] 12.7 g/dL Low 13.4 - 16.8 g/dL [facility] Interpretation and review of laboratory results Abnormal [facility] MCH (RBC) [Entitic mass] 28.0 pg 26.1 - 33.3 pg [facility] MCHC (RBC) [Mass/Vol] 32.2 g/dL 31.9 - 36.5 g/dL [facility] MCV (RBC) [Entitic vol] 87.0 fL 79.0 - 94.5 fL [facility] Platelet mean volume (Bld) [Entitic vol] 10.2 fL 8.7 - 12.3 fL [facility] Platelets (Bld) [#/Vol] 157 10*3/uL 146 - 337 K/uL [facility] RBC (Bld) [#/Vol] 4.53 10*6/uL [facility] WBC (Bld) [#/Vol] 3.42 10*3/uL Low 3.73 - 10. 10 K/uL [facility] Hematocrit (Bld) [Volume fraction] 39.4 % Low 39.6-48.8 [facility] Comment on above: Performed By: #### H [facility] ####[facility] (DEFAULT)[address] [place] [address] Hemoglobin (Bld) [Mass/Vol] 12.7 g/dL Low 13.4-16.8 [facility] Comment on above: Performed By: #### H [facility] ####[facility] (DEFAULT)[address] [place] [address] MCV (RBC) [Entitic vol] 87.0 fL Normal 79.0-94.5 [facility] Comment on above: Performed By: #### H EMO ####[facility] (DEFAULT)[address] [place] [address] Mean Cell Hgb 28.0 pg Normal 26.1-33.3 [facility] Comment on above: Performed By: #### H [facility] ####[facility] (DEFAULT)[address] [facility] [place] [address] Mean Cell Hgb Conc 32.2 g/dL Normal 31.9-36.5 [facility] Comment on above: Performed By: #### H EMO ####[facility] (DEFAULT)[address] [facility] [place] [address] Platelet mean volume (Bld) [Entitic vol] 10.2 fL Normal 8.7-12.3 [facility] Comment on above: Performed By: #### H EMO ####[facility] (DEFAULT)[address] [place] [address] Platelets (Bld) [#/Vol] 157 10*3/uL Normal 146-337 [facility] Comment on above: Performed By: #### H EMO ####[facility] (DEFAULT)[address] [place] [address] RBC (Bld) [#/Vol] 4.53 10*6/uL Normal 4.38-5.83 [facility] Comment on above: Performed By: #### H EMO ####[facility] (DEFAULT)[address] [place] [address] RBC Distribution 14.0 % Normal 10.9-14.3 [facility] Comment on above: Performed By: #### H EMOGC ####[facility] (DEFAULT)[address] [place] [address] WBC (Bld) [#/Vol] 3.42 10*3/uL Low 3.73-10.10 [facility] Comment on above: Performed By: #### H EMOGC ####[facility] (DEFAULT)[address] [place] [address] CHEM 7 (LYTES,BUN,CREA,GLUC) on 01-21-2024 Anion gap [Moles/Vol] 12 mmol/L 7 - 17 mmol/L [facility] Chloride [Moles/Vol] 107 mmol/L 98 - 10 8 mmol/L [facility] CO2 [Moles/Vol] 26 mmol/L 21 - 31 mmol/L [facility] Creatinine [Mass/Vol] 1.11 mg/dL 0.70 - 1.30 mg/dL [facility] eGFR, CKD-EPI, Male 80 - PINF [facility] Comment on above: Reported eGFR is bas ed on the CKD-EPI 2020 equation using creatinine, age, and sex. Glucose [Mass/Vol] 93 mg/dL 70 - 99 mg/dL [facility] Osmolality Calc [Osmolality] 295 [facility] Potassium [Moles/Vol] 3.9 mmol/L 3.5 - 5.0 mmol/L [facility] Sodium [Moles/Vol] 141 mmol/L 135 - 145 mmol/L [facility] Urea nitrogen [Mass/Vol] 15 mg/dL 7 - 25 mg/dL [facility] Urea nitrogen/Creatinine [Mass ratio] 14 mg/mg [facility] Anion gap [Moles/Vol] 12 mmol/L Normal 7-17 [facility] Comment on above: Performed By: #### NATHANIEL RAMÍREZ ####[facility] (DEFAULT)[address] [place] [address] Chloride [Moles/Vol] 107 mmol/L Normal 98-108 [facility] Comment on above: Performed By: #### NATHANIEL RAMÍREZ ####[facility] (DEFAULT)[address] [place] [address] CO2 [Moles/Vol] 26 mmol/L Normal 21-31 [facility] Comment on above: Performed By: #### NATHANIEL RAMÍREZ ####[facility] (DEFAULT)[address] [place] [address] Creatinine [Mass/Vol] 1.11 mg/dL Normal 0.70-1.30 [facility] Comment on above: Performed By: #### NATHANIEL RAMÍREZ ####[facility] (DEFAULT)[address] [place] [address] GFR/1.73 sq M.predicted among non-blacks MDRD (S/P/Bld) [Vol rate/Area] 80 mL/min/{1.73_m2} Normal >=60 [facility] Comment on above: Result Comment: Repo rted eGFR is based on the CKD-EPI 2020 equation using creatinine, age, and sex. Performed By: #### TJ RAMÍREZ7 ####[facility] (DEFAULT)[address] [place] [address] Glucose [Mass/Vol] 93 mg/dL Normal 70-99 [facility] Comment on above: Performed By: #### TJ RAMÍREZ7 ####[facility] (DEFAULT)[address] [place] [address] Osmolality [Osmolality] 295 mosm/kg Normal 278-305 [facility] Comment on above: Performed By: #### TJ RAMÍREZ7 ####[facility] (DEFAULT)[address] [place] [address] Potassium [Moles/Vol] 3.9 mmol/L Normal 3.5-5.0 [facility] Comment on above: Performed By: #### TJ RAMÍREZ7 ####[facility] (DEFAULT)[address] [place] [address] Sodium [Moles/Vol] 141 mmol/L Normal 135-145 [facility] Comment on above: Performed By: #### TJ RAMÍREZ7 ####[facility] (DEFAULT)[address] [place] [address] Urea nitrogen [Mass/Vol] 15 mg/dL Normal 7-25 [facility] Comment on above: Performed By: #### TJ RAMÍREZ7 ####[facility] (DEFAULT)[address] [place] [address] Urea nitrogen/Creatinine [Mass ratio] 14 mg/mg Normal [facility] Comment on above: Performed By: #### M TJ BLOOM7 ####[facility] (DEFAULT)[address] [place] [address] Cardiac catheterization stud yOrdered By: Kelvin Donohue on 01-21-2024 Body surface area Derived from formula 2.08 m2 [facility] Work Phone: [facility] Work Phone: Cardiac catheterization stud yon 01-21-2024 [...] with fistula occlusion Kelvin Donohue MD, MPH [employer] Equipment Rep[employer]r of Internal Medicine. Section of Advanced Heart Failure and Transplantation Division of Cardiovascular Diseases [facility] [email or web address] INVASIVE CARDIOVASCULAR PROC EDUREon 01-21-2024 INVASIVE CARDIOVASCULAR PROCEDURE Normal [facility] MAGNESIUMon 01-21-2024 Interpretation and review of laboratory results Abnormal [facility] Magnesium [Mass/Vol] 1.5 mg/dL Low 1.6 - 2 .6 mg/dL [facility] Magnesium [Mass/Vol] 1.5 mg/dL Low 1.6-2.6 [facility] Comment on above: Performed By: #### M HELEN BLOOMM7 ####[facility] (DEFAULT)[address] [place] [address] No Panel Informationon 01-21 [facility] TACROLIMUS LEVEL, TROUGH (NC E DRUG LEVEL)on 01-21-2024 Interpretation and review of laboratory results Normal [facility] Tacrolimus (Bld) [Mass/Vol] 7.2 ng/mL Bone Marrow Transplant: 4.0-12.0, Therapeutic: 5.0-15.0 [facility] Method performed is a chemiluminescent microparticle immunoasssay on the [employer] i2000. The range is based on experience at [facility] and users should be aware that target concentrations vary widely depending on concomitant therapy, time post-transplant, and desired degree of immunosuppression. [facility] Tacrolimus, Trough 7.2 ng/mL Normal Bone Susana ow Transplant: 4.0-12.0, Therapeutic: 5.0-15.0 [facility] Comment on above: Order Comment: Pleas e draw at specified interval PRIOR to dose. Do not hold dose to wait for level. Specimens batched twice per day, (M-F) and once per day weekendsMethod performed is a chemiluminescent microparticle immunoasssay on the [employer] i2000.The range is based on experience at [facility] and users should be aware that target concentrations vary widely depending on concomitant therapy, time post-transplant, and desired degree of immunosuppression. Performed By: #### T ACRO ####[facility] (DEFAULT)[address] [place] [id number] CBC,PLATELETSon 01-20-2024 Erythrocyte distribution width (RBC) [Ratio] 13.8 % 10.9 - 14.3 % [facility] Hematocrit (Bld) [Volume fraction] 38.9 % Low 39.6 - 48.8 % [facility] Hemoglobin (Bld) [Mass/Vol] 12.5 g/dL Low 13.4 - 16.8 g/dL [facility] Interpretation and review of laboratory results Abnormal [facility] MCH (RBC) [Entitic mass] 28.0 pg 26.1 - 33.3 pg [facility] MCHC (RBC) [Mass/Vol] 32.1 g/dL 31.9 - 36.5 g/dL [facility] MCV (RBC) [Entitic vol] 87.2 fL 79.0 - 94.5 fL [facility] Platelet mean volume (Bld) [Entitic vol] 10.2 fL 8.7 - 12.3 fL [facility] Platelets (Bld) [#/Vol] 166 10*3/uL 146 - 337 K/uL [facility] RBC (Bld) [#/Vol] 4.46 10*6/uL [facility] WBC (Bld) [#/Vol] 3.79 10*3/uL 3.73 - 10. 10 K/uL [facility] Hematocrit (Bld) [Volume fraction] 38.9 % Low 39.6-48.8 [facility] Comment on above: Performed By: #### H [facility] ####[facility] (DEFAULT)[address] [place] [address] Hemoglobin (Bld) [Mass/Vol] 12.5 g/dL Low 13.4-16.8 [facility] Comment on above: Performed By: #### H EMO ####[facility] (DEFAULT)[address] [place] [address] MCV (RBC) [Entitic vol] 87.2 fL Normal 79.0-94.5 [facility] Comment on above: Performed By: #### H EMO ####[facility] (DEFAULT)[address] [place] [address] Mean Cell Hgb 28.0 pg Normal 26.1-33.3 [facility] Comment on above: Performed By: #### H EMO ####[facility] (DEFAULT)[address] [place] [address] Mean Cell Hgb Conc 32.1 g/dL Normal 31.9-36.5 [facility] Comment on above: Performed By: #### H EMO ####[facility] (DEFAULT)[address] [place] [address] Platelet mean volume (Bld) [Entitic vol] 10.2 fL Normal 8.7-12.3 [facility] Comment on above: Performed By: #### H EMO ####[facility] (DEFAULT)[address] [place] [address] Platelets (Bld) [#/Vol] 166 10*3/uL Normal 146-337 [facility] Comment on above: Performed By: #### H EMO ####[facility] (DEFAULT)[address] [place] [address] RBC (Bld) [#/Vol] 4.46 10*6/uL Normal 4.38-5.83 [facility] Comment on above: Performed By: #### H EMO ####[facility] (DEFAULT)[address] [place] [address] RBC Distribution 13.8 % Normal 10.9-14.3 [facility] Comment on above: Performed By: #### H EMO ####[facility] (DEFAULT)[address] [place] [address] WBC (Bld) [#/Vol] 3.79 10*3/uL Normal 3.73-10.10 [facility] Comment on above: Performed By: #### H EMO ####[facility] (DEFAULT)[address] [place] [address] CHEM 7 (LYTES,BUN,CREA,GLUC) on 01-20-2024 Anion gap [Moles/Vol] 12 mmol/L 7 - 17 mmol/L [facility] Chloride [Moles/Vol] 105 mmol/L 98 - 10 8 mmol/L [facility] CO2 [Moles/Vol] 28 mmol/L 21 - 31 mmol/L [facility] Creatinine [Mass/Vol] 1.12 mg/dL 0.70 - 1.30 mg/dL [facility] eGFR, CKD-EPI, Male 80 - PINF [facility] Comment on above: Reported eGFR is bas ed on the CKD-EPI 2020 equation using creatinine, age, and sex. Glucose [Mass/Vol] 88 mg/dL 70 - 99 mg/dL [facility] Osmolality Calc [Osmolality] 294 [facility] Potassium [Moles/Vol] 3.8 mmol/L 3.5 - 5.0 mmol/L [facility] Sodium [Moles/Vol] 141 mmol/L 135 - 145 mmol/L [facility] Urea nitrogen [Mass/Vol] 15 mg/dL 7 - 25 mg/dL [facility] Urea nitrogen/Creatinine [Mass ratio] 13 mg/mg [facility] Anion gap [Moles/Vol] 12 mmol/L Normal 7-17 [facility] Comment on above: Performed By: #### TAVO RAMÍREZ, CHM7 ####[facility] (DEFAULT)[address] [place] [address] Chloride [Moles/Vol] 105 mmol/L Normal 98-108 [facility] Comment on above: Performed By: #### TAVO RAMÍREZ, CHM7 ####[facility] (DEFAULT)[address] [place] [address] CO2 [Moles/Vol] 28 mmol/L Normal 21-31 [facility] Comment on above: Performed By: #### TAVO RAMÍREZ, CHM7 ####[facility] (DEFAULT)[address] [place] [address] Creatinine [Mass/Vol] 1.12 mg/dL Normal 0.70-1.30 [facility] Comment on above: Performed By: #### TAVO RAMÍREZ, CHM7 ####[facility] (DEFAULT)[address] [place] [address] GFR/1.73 sq M.predicted among non-blacks MDRD (S/P/Bld) [Vol rate/Area] 79 mL/min/{1.73_m2} Normal >=60 [facility] Comment on above: Result Comment: Repo rted eGFR is based on the CKD-EPI 2020 equation using creatinine, age, and sex. Performed By: #### TAVO RAMÍREZ, CHM7 ####[facility] (DEFAULT)[address] [place] [address] Glucose [Mass/Vol] 88 mg/dL Normal 70-99 [facility] Comment on above: Performed By: #### TAVO RAMÍREZ, CHM7 ####[facility] (DEFAULT)[address] [place] [address] Osmolality [Osmolality] 294 mosm/kg Normal 278-305 [facility] Comment on above: Performed By: #### TAVO RAMÍREZ, CHM7 ####[facility] (DEFAULT)[address] [place] [address] Potassium [Moles/Vol] 3.8 mmol/L Normal 3.5-5.0 [facility] Comment on above: Performed By: #### TAVO RAMÍREZ, CHM7 ####[facility] (DEFAULT)[address] [place] [address] Sodium [Moles/Vol] 141 mmol/L Normal 135-145 [facility] Comment on above: Performed By: #### TAVO RAMÍREZ, CHM7 ####[facility] (DEFAULT)[address] [place] [address] Urea nitrogen [Mass/Vol] 15 mg/dL Normal 7-25 [facility] Comment on above: Performed By: #### TAVO RAMÍREZ, CHM7 ####[facility] (DEFAULT)[address] [place] [address] Urea nitrogen/Creatinine [Mass ratio] 13 mg/mg Normal [facility] Comment on above: Performed By: #### TAVO RAMÍREZ, CHM7 ####[facility] (DEFAULT)[address] [place] [address] Cardiac catheterization stud yon 01-20-2024 [facility] Radiology Study observation (narrative) [facility] Radiology Study observation (narrative) [facility] EBV BY PCR, QUANTITATIVE,BLO ODOrdered By: Charlotte Jensen on 01-20-2024 EBV DNA ESTELITA+probe (Unsp spec) [#/Vol] NINF [facility] Interpretation and review of laboratory results Normal [facility] This test was perfor med using a real time PCR assay. The dynamic range for this assay is 1000-5,000,000 IU/mL. A result <1000 IU/mL does not rule out the presence of EBV DNA in quantities below the sensitivity of this assay. This test was developed and its performance characteristics determined by [facility]. It has not been cleared or approved by the FDA. The laboratory is regulated under CLIA as qualified to perform high-complexity testing. This test is used for clinical purposes. It should not be regarded as investigational or for research. [facility] HEPATIC FUNCTION PANELon Albumin [Mass/Vol] 3.7 g/dL 3.5 - 5.0 g/dL [facility] ALP [Catalytic activity/Vol] 73 U/L 32 - 126 U/L [facility] ALT [Catalytic activity/Vol] 12 U/L 10 - 52 U/L [facility] AST [Catalytic activity/Vol] 19 U/L 10 - 39 U/L [facility] Bilirubin [Mass/Vol] 2.1 mg/dL High NINF - 1.5 mg/dL [facility] Bilirubin.direct [Mass/Vol] 0.5 mg/dL High NINF - 0.3 mg/dL [facility] Interpretation and review of laboratory results Abnormal [facility] Protein [Mass/Vol] 6.1 g/dL Low 6.4 - 8.3 g/dL [facility] Albumin [Mass/Vol] 3.7 g/dL Normal 3.5-5.0 [facility] Comment on above: Performed By: #### M MERLE HFP, CHM7 ####[facility] (DEFAULT)[address] [place] [address] ALP [Catalytic activity/Vol] 73 U/L Normal 32-126 [facility] Comment on above: Performed By: #### M MERLE, HFP, CHM7 ####[facility] (DEFAULT)[address] [place] [address] ALT [Catalytic activity/Vol] 12 U/L Normal 10-52 [facility] Comment on above: Performed By: #### M MERLE, HFP, CHM7 ####[facility] (DEFAULT)[address] [place] [address] AST [Catalytic activity/Vol] 19 U/L Normal 10-39 [facility] Comment on above: Performed By: #### M MERLE, HFP, CHM7 ####[facility] (DEFAULT)[address] [place] [address] Bilirubin [Mass/Vol] 2.1 mg/dL High <1.5 [facility] Comment on above: Performed By: #### M MERLE, HFP, CHM7 ####[facility] (DEFAULT)[address] [place] [address] Bilirubin.indirect [Mass/Vol] 0.5 mg/dL High <0.3 [facility] Comment on above: Performed By: #### M GO, HFP, CHM7 ####[facility] (DEFAULT)[address] [place] [address] Protein [Mass/Vol] 6.1 g/dL Low 6.4-8.3 [facility] Comment on above: Performed By: #### M GO, HFP, CHM7 ####[facility] (DEFAULT)[address] [place] [address] ITRACONAZOLE LEVELon 024 Hydroxyitraconazole 7.6 mcg/mL Normal [facility] Comment on above: Order Comment: Pleas e draw level at specified interval PRIOR to dose. Result Comment: ---- REFERENCE VALUE No therapeutic range established; activity and serumconcentration are similar to parent drug. ADDITIONAL INFORMATION This test was developed and its performance characteristicsdetermined by [facility] in a manner consistent with CLIArequirements. This test has not been cleared or approved bythe U.S. Food and Drug Administration.Test Performed by:[address] [address]Zem Director: Rosendo Bose M.D. Ph.D.; CLIA# [id number] Performed By: #### Y ITCON ####[facility] (DEFAULT)[address] [place] [address] Itraconazole 6.0 mcg/mL Normal [facility] Comment on above: Order Comment: Pleas e draw level at specified interval PRIOR to dose. Result Comment: ---- REFERENCE VALUE-------------------------->0.5 (localized infection), >1.0 (systemic infection) Performed By: #### Y ITCON ####[facility] (DEFAULT)[address] [address] MAGNESIUMon 01-20-2024 Interpretation and review of laboratory results Normal [facility] Magnesium [Mass/Vol] 1.6 mg/dL 1.6 - 2 .6 mg/dL [facility] Magnesium [Mass/Vol] 1.6 mg/dL Normal 1.6-2.6 [facility] Comment on above: Performed By: #### M MERLE, [facility], CHM7 ####[facility] (DEFAULT)[address] [place] [address] No Panel Informationon 01-20 [facility] POCT CO-OXIMETRYon Hemoglobin (Bld) [Mass/Vol] 12.8 g/dL Low 13.4 - 16.8 g/dL [facility] Interpretation and review of laboratory results Abnormal [facility] Oxyhemoglobin 69 % Low 94 - 98 % [facility] Ordering physician notified. Test performed at address of the patient encounter. [facility] Hemoglobin (Bld) [Mass/Vol] 13.3 g/dL Low 13.4 - 16.8 g/dL [facility] Interpretation and review of laboratory results Abnormal [facility] Oxyhemoglobin 69 % Low 94 - 98 % [facility] Ordering physician notified. Test performed at address of the patient encounter. [facility] PT,INR,PTTon 01-20-2024 aPTT Coag (PPP) [Time] 30.6 s [facility] INR Coag (Bld) [Relative time] 1.2 {INR} High 0.9 - 1.1 [facility] Interpretation and review of laboratory results Abnormal [facility] PT Coag (PPP) [Time] 15.5 s High [facility] aPTT Coag (Bld) [Time] 30.6 s Normal 24.0-34.3 [facility] Comment on above: Performed By: #### P TPTT ####[facility] (DEFAULT)[address] [place] [address] INR Coag (PPP) [Relative time] 1.2 {INR} High 0.9-1.1 [facility] Comment on above: Performed By: #### P TPTT ####[facility] (DEFAULT)[address] [place] [address] PT Coag (PPP) [Time] 15.5 s High 11.9-14.2 [facility] Comment on above: Performed By: #### P TPTT ####[facility] (DEFAULT)[address] [place] [address] TACROLIMUS LEVEL, TROUGH (NC E DRUG LEVEL)Ordered By: Yanira Marcum on 01-20-2024 Interpretation and review of laboratory results Normal [facility] Tacrolimus (Bld) [Mass/Vol] 7.7 ng/mL Bone Marrow Transplant: 4.0-12.0, Therapeutic: 5.0-15.0 [facility] Method performed is a chemiluminescent microparticle immunoasssay on the [employer] i2000. The range is based on experience at [facility] and users should be aware that target concentrations vary widely depending on concomitant therapy, time post-transplant, and desired degree of immunosuppression. [facility] TACROLIMUS LEVEL, TROUGH (NC E DRUG LEVEL)on 01-20-2024 Tacrolimus, Trough 7.7 ng/mL Normal Bone Susana ow Transplant: 4.0-12.0, Therapeutic: 5.0-15.0 [facility] Comment on above: Order Comment: Pleas e draw at specified interval PRIOR to dose. Do not hold dose to wait for level. Specimens batched twice per day, (M-F) and once per day weekendsMethod performed is a chemiluminescent microparticle immunoasssay on the [employer] i2000.The range is based on experience at [facility] and users should be aware that target concentrations vary widely depending on concomitant therapy, time post-transplant, and desired degree of immunosuppression. Performed By: #### T ACRO ####[facility] (DEFAULT)[address] [place] [address] CBC,PLATELETSon 01-19-2024 Erythrocyte distribution width (RBC) [Ratio] 13.9 % 10.9 - 14.3 % [facility] Hematocrit (Bld) [Volume fraction] 37.5 % Low 39.6 - 48.8 % [facility] Hemoglobin (Bld) [Mass/Vol] 12.1 g/dL Low 13.4 - 16.8 g/dL [facility] Interpretation and review of laboratory results Abnormal [facility] MCH (RBC) [Entitic mass] 28.3 pg 26.1 - 33.3 pg [facility] MCHC (RBC) [Mass/Vol] 32.3 g/dL 31.9 - 36.5 g/dL [facility] MCV (RBC) [Entitic vol] 87.8 fL 79.0 - 94.5 fL [facility] Platelet mean volume (Bld) [Entitic vol] 10.4 fL 8.7 - 12.3 fL [facility] Platelets (Bld) [#/Vol] 163 10*3/uL 146 - 337 K/uL [facility] RBC (Bld) [#/Vol] 4.27 10*6/uL Low [facility] WBC (Bld) [#/Vol] 3.69 10*3/uL Low 3.73 - 10. 10 K/uL [facility] Hematocrit (Bld) [Volume fraction] 37.5 % Low 39.6-48.8 [facility] Comment on above: Performed By: #### H [facility] ####[facility] (DEFAULT)[address] [place] [address] Hemoglobin (Bld) [Mass/Vol] 12.1 g/dL Low 13.4-16.8 [facility] Comment on above: Performed By: #### H [facility] ####[facility] (DEFAULT)[address] [place] [address] MCV (RBC) [Entitic vol] 87.8 fL Normal 79.0-94.5 [facility] Comment on above: Performed By: #### H [facility] ####[facility] (DEFAULT)[address] [place] [address] Mean Cell Hgb 28.3 pg Normal 26.1-33.3 [facility] Comment on above: Performed By: #### H [facility] ####[facility] (DEFAULT)[address] [facility] [place] [address] Mean Cell Hgb Conc 32.3 g/dL Normal 31.9-36.5 [facility] Comment on above: Performed By: #### H EMOGC ####[facility] (DEFAULT)[address] [facility] [place] [address] Platelet mean volume (Bld) [Entitic vol] 10.4 fL Normal 8.7-12.3 [facility] Comment on above: Performed By: #### H EMOGC ####[facility] (DEFAULT)[address] [place] [address] Platelets (Bld) [#/Vol] 163 10*3/uL Normal 146-337 [facility] Comment on above: Performed By: #### H EMOGC ####[facility] (DEFAULT)[address] [place] [address] RBC (Bld) [#/Vol] 4.27 10*6/uL Low 4.38-5.83 [facility] Comment on above: Performed By: #### H EMOGC ####[facility] (DEFAULT)[address] [place] [address] RBC Distribution 13.9 % Normal 10.9-14.3 [facility] Comment on above: Performed By: #### H EMOGC ####[facility] (DEFAULT)[address] [place] [address] WBC (Bld) [#/Vol] 3.69 10*3/uL Low 3.73-10.10 [facility] Comment on above: Performed By: #### H EMOGC ####[facility] (DEFAULT)[address] [place] [address] CHEM 7 (LYTES,BUN,CREA,GLUC) on 01-19-2024 Anion gap [Moles/Vol] 14 mmol/L 7 - 17 mmol/L [facility] Chloride [Moles/Vol] 106 mmol/L 98 - 10 8 mmol/L [facility] CO2 [Moles/Vol] 24 mmol/L 21 - 31 mmol/L [facility] Creatinine [Mass/Vol] 1.13 mg/dL 0.70 - 1.30 mg/dL [facility] eGFR, CKD-EPI, Male 79 - PINF [facility] Comment on above: Reported eGFR is bas ed on the CKD-EPI 2020 equation using creatinine, age, and sex. Glucose [Mass/Vol] 86 mg/dL 70 - 99 mg/dL [facility] Osmolality Calc [Osmolality] 293 [facility] Potassium [Moles/Vol] 3.8 mmol/L 3.5 - 5.0 mmol/L [facility] Sodium [Moles/Vol] 140 mmol/L 135 - 145 mmol/L [facility] Urea nitrogen [Mass/Vol] 16 mg/dL 7 - 25 mg/dL [facility] Urea nitrogen/Creatinine [Mass ratio] 14 mg/mg [facility] Anion gap [Moles/Vol] 14 mmol/L Normal 7-17 [facility] Comment on above: Performed By: #### NATHANIEL RAMÍREZ ####[facility] (DEFAULT)[address] [place] [address] Chloride [Moles/Vol] 106 mmol/L Normal 98-108 [facility] Comment on above: Performed By: ###NATHANIEL HERNANDEZ ####[facility] (DEFAULT)[address] [place] [address] CO2 [Moles/Vol] 24 mmol/L Normal 21-31 [facility] Comment on above: Performed By: #### NATHANIEL RAMÍREZ ####[facility] (DEFAULT)[address] [place] [address] Creatinine [Mass/Vol] 1.13 mg/dL Normal 0.70-1.30 [facility] Comment on above: Performed By: #### NATHANIEL RAMÍREZ ####[facility] (DEFAULT)[address] [place] [address] GFR/1.73 sq M.predicted among non-blacks MDRD (S/P/Bld) [Vol rate/Area] 78 mL/min/{1.73_m2} Normal >=60 [facility] Comment on above: Result Comment: Repo rted eGFR is based on the CKD-EPI 2020 equation using creatinine, age, and sex. Performed By: #### Rod BLOOM CHM7 ####[facility] (DEFAULT)[address] [place] [address] Glucose [Mass/Vol] 86 mg/dL Normal 70-99 [facility] Comment on above: Performed By: #### Rod BLOOM CHM7 ####[facility] (DEFAULT)[address] [place] [address] Osmolality [Osmolality] 293 mosm/kg Normal 278-305 [facility] Comment on above: Performed By: #### Rod BLOOM CHM7 ####[facility] (DEFAULT)[address] [place] [address] Potassium [Moles/Vol] 3.8 mmol/L Normal 3.5-5.0 [facility] Comment on above: Performed By: #### Rod BLOOM CHM7 ####[facility] (DEFAULT)[address] [place] [address] Sodium [Moles/Vol] 140 mmol/L Normal 135-145 [facility] Comment on above: Performed By: #### Rod BLOOM CHM7 ####[facility] (DEFAULT)[address] [place] [address] Urea nitrogen [Mass/Vol] 16 mg/dL Normal 7-25 [facility] Comment on above: Performed By: #### Rod BLOOM CHM7 ####[facility] (DEFAULT)[address] [place] [address] Urea nitrogen/Creatinine [Mass ratio] 14 mg/mg Normal [facility] Comment on above: Performed By: #### M GO, CHM7 ####[facility] (DEFAULT)[address] [place] [address] EBV BY PCR, QUANTITATIVE,BLO ODon 01-19-2024 Ebv By Pcr, Quant, Blood <1000 Normal <1000 [facility] Comment on above: Order Comment: This test was performed using a real time PCR assay. The dynamic range for this assay is 1000-5,000,000 IU/mL. A result <1000 IU/mL does not rule out the presence of EBV DNA in quantities below the sensitivity of this assay. This test was developed and its performance characteristics determined by [facility]. It has not been cleared or approved by the FDA. The laboratory is regulated under CLIA as qualified to perform high-complexity testing. This test is used for clinical purposes. It should not be regarded as investigational or for research. Performed By: #### E BVPCR ####[facility] (DEFAULT)[address] [place] [address] HISTOPLASMA AND BLASTOMYCES ANTIGEN, ENZYME IMMUNOASSAY, SERMon 01-19-2024 Histoplasma/Blastomy antonia Ag Result Not detected Not Detected [facility] Comment on above: No antigen from Hist oplasma or Blastomyces detected. False negative results may occur depending on extent of disease, and/or site of infection. Repeat testing on a new specimen if clinically indicated. Histoplasma/Blastomy antonia Ag Value Not detected ng/mL [facility] Comment on above: ADDITIONAL INFORMATION This test was developed and its performance characteristics determined by [facility] in a manner consistent with CLIA requirements. This test has not been cleared or approved by the U.S. Food and Drug Administration. Test Performed by: [facility] [id number] [place] [address] Conversion Developer: Rosendo Bose M.D. Ph.D.; CLIA# [id number] [facility] MAGNESIUMon 01-19-2024 Interpretation and review of laboratory results Normal [facility] Magnesium [Mass/Vol] 1.8 mg/dL 1.6 - 2 .6 mg/dL [facility] Magnesium [Mass/Vol] 1.8 mg/dL Normal 1.6-2.6 [facility] Comment on above: Performed By: #### M MERLE [facility] ####[facility] (DEFAULT)[address] [place] [address] No Panel Informationon 01-19 [facility] TACROLIMUS LEVEL, TROUGH (NC E DRUG LEVEL)Ordered By: Raymundo Mehta on 01-19-2024 Interpretation and review of laboratory results Normal [facility] Tacrolimus (Bld) [Mass/Vol] 6.8 ng/mL Bone Marrow Transplant: 4.0-12.0, Therapeutic: 5.0-15.0 [facility] Method performed is a chemiluminescent microparticle immunoasssay on the [employer] i2000. The range is based on experience at [facility] and users should be aware that target concentrations vary widely depending on concomitant therapy, time post-transplant, and desired degree of immunosuppression. [facility] TACROLIMUS LEVEL, TROUGH (NC E DRUG LEVEL)on 01-19-2024 Tacrolimus, Trough 6.8 ng/mL Normal Bone Susana ow Transplant: 4.0-12.0, Therapeutic: 5.0-15.0 [facility] Comment on above: Order Comment: Pleas e draw at specified interval PRIOR to dose. Do not hold dose to wait for level. Specimens batched twice per day, (M-F) and once per day weekendsMethod performed is a chemiluminescent microparticle immunoasssay on the [employer] i2000.The range is based on experience at [facility] and users should be aware that target concentrations vary widely depending on concomitant therapy, time post-transplant, and desired degree of immunosuppression. Performed By: #### T ACRO ####[facility] (DEFAULT)[address] [place] [address] US AV fistulaOrdered By: Diana Reyes on 01-19-2024 [facility] Work Phone: AV fistulaon 01-19-2024 Radiology Study observation (narrative) [facility] AFP TUMOR MARKEROrdered By: Francisca Alaniz on 01-18-2024 AFP.tumor marker [Mass/Vol] ng/mL NINF - 8.1 ng/mL [facility] Comment on above: This test was perfor med on the SuperMama Immunoassay platform by [employer] which is a two-site sandwich chemiluminescent immunoassay. It is important to note that assays using different manufacturers and/or methods may not be comparable. Interpretation and review of laboratory results Normal [facility] CBC,PLATELETSon 01-18-2024 Erythrocyte distribution width (RBC) [Ratio] 13.9 % 10.9 - 14.3 % [facility] Hematocrit (Bld) [Volume fraction] 38.4 % Low 39.6 - 48.8 % [facility] Hemoglobin (Bld) [Mass/Vol] 12.1 g/dL Low 13.4 - 16.8 g/dL [facility] Interpretation and review of laboratory results Abnormal [facility] MCH (RBC) [Entitic mass] 27.8 pg 26.1 - 33.3 pg [facility] MCHC (RBC) [Mass/Vol] 31.5 g/dL Low 31.9 - 36.5 g/dL [facility] MCV (RBC) [Entitic vol] 88.3 fL 79.0 - 94.5 fL [facility] Platelet mean volume (Bld) [Entitic vol] 10.4 fL 8.7 - 12.3 fL [facility] Platelets (Bld) [#/Vol] 183 10*3/uL 146 - 337 K/uL [facility] RBC (Bld) [#/Vol] 4.35 10*6/uL Low [facility] WBC (Bld) [#/Vol] 3.66 10*3/uL Low 3.73 - 10. 10 K/uL [facility] Hematocrit (Bld) [Volume fraction] 38.4 % Low 39.6-48.8 [facility] Comment on above: Performed By: #### H EMOGC ####[facility] (DEFAULT)[address] [place] [address] Hemoglobin (Bld) [Mass/Vol] 12.1 g/dL Low 13.4-16.8 [facility] Comment on above: Performed By: #### H EMOGC ####[facility] (DEFAULT)[address] [facility] [place] [address] MCV (RBC) [Entitic vol] 88.3 fL Normal 79.0-94.5 [facility] Comment on above: Performed By: #### H EMOGC ####[facility] (DEFAULT)[address] [facility] [place] [address] Mean Cell Hgb 27.8 pg Normal 26.1-33.3 [facility] Comment on above: Performed By: #### H EMOGC ####[facility] (DEFAULT)[address] [facility] [place] [address] Mean Cell Hgb Conc 31.5 g/dL Low 31.9-36.5 [facility] Comment on above: Performed By: #### H EMOGC ####[facility] (DEFAULT)[address] [place] [address] Platelet mean volume (Bld) [Entitic vol] 10.4 fL Normal 8.7-12.3 [facility] Comment on above: Performed By: #### H EMOGC ####[facility] (DEFAULT)[address] [place] [address] Platelets (Bld) [#/Vol] 183 10*3/uL Normal 146-337 [facility] Comment on above: Performed By: #### H EMOGC ####[facility] (DEFAULT)[address] [place] [address] RBC (Bld) [#/Vol] 4.35 10*6/uL Low 4.38-5.83 [facility] Comment on above: Performed By: #### H [facility] ####[facility] (DEFAULT)[address] [place] [address] RBC Distribution 13.9 % Normal 10.9-14.3 [facility] Comment on above: Performed By: #### H [facility] ####[facility] (DEFAULT)[address] [place] [address] WBC (Bld) [#/Vol] 3.66 10*3/uL Low 3.73-10.10 [facility] Comment on above: Performed By: #### H [facility] ####[facility] (DEFAULT)[address] [place] [address] CHEM 7 (LYTES,BUN,CREA,GLUC) on 01-18-2024 Anion gap [Moles/Vol] 11 mmol/L 7 - 17 mmol/L [facility] Chloride [Moles/Vol] 108 mmol/L 98 - 10 8 mmol/L [facility] CO2 [Moles/Vol] 26 mmol/L 21 - 31 mmol/L [facility] Creatinine [Mass/Vol] 1.00 mg/dL 0.70 - 1.30 mg/dL [facility] eGFR, CKD-EPI, Male - PINF [facility] Comment on above: Reported eGFR is bas ed on the CKD-EPI 2020 equation using creatinine, age, and sex. Glucose [Mass/Vol] 89 mg/dL 70 - 99 mg/dL [facility] Osmolality Calc [Osmolality] 295 [facility] Potassium [Moles/Vol] 3.9 mmol/L 3.5 - 5.0 mmol/L [facility] Sodium [Moles/Vol] 141 mmol/L 135 - 145 mmol/L [facility] Urea nitrogen [Mass/Vol] 16 mg/dL 7 - 25 mg/dL [facility] Urea nitrogen/Creatinine [Mass ratio] 16 mg/mg [facility] Anion gap [Moles/Vol] 11 mmol/L Normal 7-17 [facility] Comment on above: Performed By: #### M GO, CHM7, HFP, TSHQR ####[facility] (DEFAULT)[address] [place] [address] Chloride [Moles/Vol] 108 mmol/L Normal 98-108 [facility] Comment on above: Performed By: #### M GO, CHM7, HFP, TSHQR ####[facility] (DEFAULT)[address] [place] [address] CO2 [Moles/Vol] 26 mmol/L Normal 21-31 [facility] Comment on above: Performed By: #### M GO, CHM7, HFP, TSHQR ####[facility] (DEFAULT)[address] [place] [address] Creatinine [Mass/Vol] 1.00 mg/dL Normal 0.70-1.30 [facility] Comment on above: Performed By: #### M GO, CHM7, HFP, TSHQR ####[facility] (DEFAULT)[address] [place] [address] eGFR, CKD-EPI, Male > Normal >=60 [facility] Comment on above: Result Comment: Repo rted eGFR is based on the CKD-EPI 2020 equation using creatinine, age, and sex. Performed By: #### M GO, CHM7, HFP, TSHQR ####[facility] (DEFAULT)[address] [place] [address] Glucose [Mass/Vol] 89 mg/dL Normal 70-99 [facility] Comment on above: Performed By: #### M GO, CHM7, HFP, TSHQR ####[facility] (DEFAULT)[address] [facility] [place] [address] Osmolality [Osmolality] 295 mosm/kg Normal 278-305 [facility] Comment on above: Performed By: #### M GO, CHM7, HFP, TSHQR ####[facility] (DEFAULT)[address] [place] [address] Potassium [Moles/Vol] 3.9 mmol/L Normal 3.5-5.0 [facility] Comment on above: Performed By: #### M GO, CHM7, HFP, TSHQR ####[facility] (DEFAULT)[address] [place] [address] Sodium [Moles/Vol] 141 mmol/L Normal 135-145 [facility] Comment on above: Performed By: #### M GO, CHM7, HFP, TSHQR ####[facility] (DEFAULT)[address] [facility] [place] [address] Urea nitrogen [Mass/Vol] 16 mg/dL Normal 7-25 [facility] Comment on above: Performed By: #### M GO, CHM7, HFP, TSHQR ####[facility] (DEFAULT)[address] [facility] [place] [address] Urea nitrogen/Creatinine [Mass ratio] 16 mg/mg Normal [facility] Comment on above: Performed By: #### M GO, CHM7, HFP, TSHQR ####[facility] (DEFAULT)[address] [facility] [place] [address] Cardiac echo study Procedure Ordered By: Gian Carlos on 01-18-2024 Ao ASC index 1.63 cm[facility]2 [facility] Work Phone: Ao peak meliton 1.46 m/s [facility] Work Phone: Ao SOV index 1.56 cm/m2 [facility] Work Phone: Ao STJ index 1.25 cm/m2 [facility] Work Phone: Ao VTI 35.74 cm [facility] Work Phone: [facility]: AV LVOT peak gradient 4 mmHg [facility] Work Phone: AV mean gradient 5 mmHg [facility] Work Phone: AV peak gradient 9 mmHG [facility]: AV valve area 3.09 cm2 [facility] Work Phone: AV Velocity Ratio 0.73 [facility] Work Phone: VEGA (continuity Vmax) 3.01 cm2 [facility] Work Phone: VEGA (continuity VTI) 3.09 cm2 [facility] Work Phone: VEGA index (continuity Vmax) 1.45 m/s [facility] Work Phone: VEGA index (continuity VTI) 1.49 cm2/m2 [facility] Work Phone: Avg e' pk meliton 0.07 m/s [facility] Work Phone: Avg E/e' ratio 19.45 [facility] Work Phone: Body surface area Derived from formula 2.08 m2 [facility] Work Phone: BP EF 62 % [facility] Work Phone: DI (Vmax) 0.73 [facility] Work Phone: DI (VTI) 0.74 m/2 [facility] Work Phone: E wave decelartion time 180.38 msec [facility] Work Phone: e' lateral pk meliton 0.0789 m/s [facility] Work Phone: e' lateral pk meliton 0.08 m/s [facility] Work Phone: e' septal pk meliton 0.0653 m/s [facility] Work Phone: e' septal pk meliton 0.07 m/s [facility] Work Phone: E/A ratio 2.67 [facility] Work Phone: E/e' lateral ratio 17.62 [facility] Work Phone: E/e' septal ratio 21.29 [facility] Work Phone: EF SP 2CH 66 [facility] Work Phone: EF SP 4CH 58 [facility] Work Phone: FS 28 % 28 - 44 % [facility] Work Phone: IVC ostium 2.30 cm [facility] Work Phone: IVS 1.11 cm [facility] Work Phone: LA AREA 2CH 24.36 cm2 [facility] Work Phone: LA area 4CH 20.36 cm2 [facility] Work Phone: LA ESV BP (MOD) 64 mL [facility] Work Phone: LA ESV BP (MOD) index 31 mL/m2 [facility] Work Phone: LA ESV SP 2CH (MOD) 76 mL [facility] Work Phone: LA ESV SP 4CH (MOD) 53 mL [facility] Work Phone: LV EDV BP 180 mL [facility] Work Phone: [phone] LV EDV SP 2CH 190 mL [facility] Work Phone: LV EDV SP 4CH 166 mL [facility] Work Phone: LV ESV BP 69 mL [facility] Work Phone: [phone] LV ESV SP 2CH 65 mL [facility] Work Phone: LV ESV SP 4CH 70 mL [facility] Work Phone: [phone] LV mass 254.73 g [facility] Work Phone: LV Mass Index 122.5 g/m2 [facility] Work Phone: LV RWT 0.42 [facility] Work Phone: LV stroke volume BP (ml) 111 mL [facility] Work Phone: LV stroke volume index BP 53.37 mL/m2 [facility] Work Phone: LVIDD 5.53 cm [facility] Work Phone: LVIDS 3.97 cm [facility] Work Phone: LVOT area 4.15 cm2 [facility] Work Phone: LVOT diameter 2.30 cm [facility] Work Phone: LVOT peak meliton 1.06 m/s [facility] Work Phone: LVOT peak VTI 26.61 cm [facility] Work Phone: LVOT stroke volume 111 cm3 [facility] Work Phone: LVOT stroke volume index 53.13 ml/m2 [facility] Work Phone: Mr max meliton 4.21 m/s [facility] Work Phone: MR VTI 134.50 cm [facility] Work Phone: MV mean gradient 3 mmHg [facility] Work Phone: MV peak gradient 11 mmHg [facility] Work Phone: MV pk A meliton 0.52 m/s [facility] Work Phone: MV pk E meliton 1.39 m/s [facility] Work Phone: MV stenosis pressure 1/2 time 58.56 ms [facility] Work Phone: MV valve area by continuity eq 2.93 cm2 [facility] Work Phone: MV valve area p 1/2 method 3.76 cm2 [facility] Work Phone: MV VTI 37.70 cm [facility] Work Phone: MVA (continuity VTI) 2.92 cm [facility] Work Phone: [facility] AV VTI RATIO PRE STRESS 0.74 [facility] Work Phone: [facility] ECHO LV BIPLANE SYSTOLIC VOLUME INDEX 33.17 mL/m2 [facility] Work Phone: [facility] ECHO LV BP DIASTOLIC VOLUME INDEX 86.54 mL/m2 [facility] Work Phone: [facility] ECHO MR PEAK GRADIENT 70.94 mmHg [facility] Work Phone: PW 1.16 cm [facility] Work Phone: RA area 4CH (MOD) 14.[facility]: RA vol index 4CH (MOD) 18.27 mL/m2 [facility] Work Phone: Right atrium volume 4 chamber method of disks 38 mL [facility] Work Phone: RV Area diastolic 33.20 [facility]2 [facility] Work [facility]: RV Area systolic 21.30 cm2 [facility] Work Phone: RV basal diam 4.52 cm [facility] Work Phone: RV Fractional area change 35.8 % [facility] Work Phone: RV long diam 8.96 cm [facility] Work Phone: RV mid diam 3.70 cm [facility] Work Phone: RV S' 22.01 cm/s [facility] Work Phone: RVOT peak gradient 4 mmHg [facility] Work Phone: RVOT peak meliton 0.96 m/s [facility] Work Phone: RVOT peak VTI 20.86 cm [facility] Work Phone: Sinus 3.24 cm [facility] Work Phone: STJ 2.61 cm [facility] Work Phone: Stroke Volume 111 cm/mL [facility] Work Phone: Stroke volume index 53 [facility] Work Phone: TAPSE 2.19 cm [facility] Work Phone: [facility] Work Phone: Cardiac echo study Procedure on [...] echocardiography study was performed. Imaging system used: [facility]. Indications Indications for study: shortness of breath. [facility] Radiology Study observation (narrative) [facility] HEPATIC FUNCTION PANELon Albumin [Mass/Vol] 3.5 g/dL 3.5 - 5.0 g/dL [facility] ALP [Catalytic activity/Vol] 70 U/L 32 - 126 U/L [facility] ALT [Catalytic activity/Vol] 8 U/L Low 10 - 52 U/L [facility] AST [Catalytic activity/Vol] 20 U/L 10 - 39 U/L [facility] Bilirubin [Mass/Vol] 1.7 mg/dL High NINF - 1.5 mg/dL [facility] Bilirubin.direct [Mass/Vol] 0.4 mg/dL High NINF - 0.3 mg/dL [facility] Protein [Mass/Vol] 6.0 g/dL Low 6.4 - 8.3 g/dL [facility] Albumin [Mass/Vol] 3.5 g/dL Normal 3.5-5.0 [facility] Comment on above: Performed By: #### M GO, CHM7, HFP, TSHQR ####[facility] (DEFAULT)[address] [place] [address] ALP [Catalytic activity/Vol] 70 U/L Normal 32-126 [facility] Comment on above: Performed By: #### M GO, CHM7, HFP, TSHQR ####[facility] (DEFAULT)[address] [place] [address] ALT [Catalytic activity/Vol] 8 U/L Low 10-52 [facility] Comment on above: Performed By: #### M GO, CHM7, HFP, TSHQR ####[facility] (DEFAULT)[address] [place] [address] AST [Catalytic activity/Vol] 20 U/L Normal 10-39 [facility] Comment on above: Performed By: #### M GO, CHM7, HFP, TSHQR ####[facility] (DEFAULT)[address] [place] [address] Bilirubin [Mass/Vol] 1.7 mg/dL High <1.5 [facility] Comment on above: Performed By: #### M GO, CHM7, HFP, TSHQR ####[facility] (DEFAULT)[address] [place] [address] Bilirubin.indirect [Mass/Vol] 0.4 mg/dL High <0.3 [facility] Comment on above: Performed By: #### M GO, CHM7, HFP, TSHQR ####[facility] (DEFAULT)[address] [place] [address] Protein [Mass/Vol] 6.0 g/dL Low 6.4-8.3 [facility] Comment on above: Performed By: #### M NATHANIEL BLOOM, TAVO, TSHQR ####[facility] (DEFAULT)[address] [place] [address] MAGNESIUMon 01-18-2024 Magnesium [Mass/Vol] 1.5 mg/dL Low 1.6 - 2 .6 mg/dL [facility] Magnesium [Mass/Vol] 1.5 mg/dL Low 1.6-2.6 [facility] Comment on above: Performed By: #### M NATHANIEL BLOOM, TAVO, TSHQR ####[facility] (DEFAULT)[address] [place] [address] No Panel Informationon 01-18 Interpretation and review of laboratory results Abnormal [facility] PT,INR,PTTon 01-18-2024 aPTT Coag (PPP) [Time] 30.0 s [facility] INR Coag (Bld) [Relative time] 1.1 {INR} 0.9 - 1.1 [facility] Interpretation and review of laboratory results Abnormal [facility] PT Coag (PPP) [Time] 14.5 s High [facility] aPTT Coag (Bld) [Time] 30.0 s Normal 24.0-34.3 [facility] Comment on above: Performed By: #### P TPTT ####[facility] (DEFAULT)[address] [place] [address] INR Coag (PPP) [Relative time] 1.1 {INR} Normal 0.9-1.1 [facility] Comment on above: Performed By: #### P TPTT ####[facility] (DEFAULT)[address] [place] [address] PT Coag (PPP) [Time] 14.5 s High 11.9-14.2 [facility] Comment on above: Performed By: #### P TPTT ####[facility] (DEFAULT)[address] [place] [address] TSH W/FT4 REFLEXon 4 Interpretation and review of laboratory results Normal [facility] TSH Qn 2.660 m[IU]/L [facility] TSH 2.660 uIU/mL Normal 0.550-4.780 [facility] Comment on above: Performed By: #### M GO, CHM7, HFP, TSHQR ####[facility] (DEFAULT)[address] [place] [address] AFP TUMOR MARKERon 4 AFP Tumor Marker <2.2 Normal <8.1 [facility] Comment on above: Result Comment: This test was performed on the [employer] Immunoassay platform by [employer] which is a two-site sandwich chemiluminescent immunoassay. It is important to note that assays using different manufacturers and/or methods may not be comparable. Performed By: #### A FPTMR ####[facility] (DEFAULT)[address] [place] [address] DARYL AURIS SCREEN BY PCRO rdered By: Mynor Alejandro on 01-17-2024 Daryl auris Screen by PCR Not detected Not Detected [facility] Interpretation and review of laboratory results Normal [facility] This test was perfor med using a real-time PCR assay. This test was developed, and its performance characteristics determined by [facility]. It has not been cleared or approved by the FDA. The laboratory is regulated under CLIA as qualified to perform high-complexity testing. This test is used for clinical purposes. It should not be regarded as investigational or for research. [facility] CBC,PLATELETSon 01-17-2024 Erythrocyte distribution width (RBC) [Ratio] 14.0 % 10.9 - 14.3 % [facility] Hematocrit (Bld) [Volume fraction] 37.2 % Low 39.6 - 48.8 % [facility] Hemoglobin (Bld) [Mass/Vol] 12.0 g/dL Low 13.4 - 16.8 g/dL [facility] Interpretation and review of laboratory results Abnormal [facility] MCH (RBC) [Entitic mass] 27.9 pg 26.1 - 33.3 pg [facility] MCHC (RBC) [Mass/Vol] 32.3 g/dL 31.9 - 36.5 g/dL [facility] MCV (RBC) [Entitic vol] 86.5 fL 79.0 - 94.5 fL [facility] Platelet mean volume (Bld) [Entitic vol] 10.5 fL 8.7 - 12.3 fL [facility] Platelets (Bld) [#/Vol] 159 10*3/uL 146 - 337 K/uL [facility] RBC (Bld) [#/Vol] 4.30 10*6/uL Low [facility] WBC (Bld) [#/Vol] 3.69 10*3/uL Low 3.73 - 10. 10 K/uL [facility] Hematocrit (Bld) [Volume fraction] 37.2 % Low 39.6-48.8 [facility] Comment on above: Performed By: #### H [facility] ####[facility] (DEFAULT)[address] [place] [address] Hemoglobin (Bld) [Mass/Vol] 12.0 g/dL Low 13.4-16.8 [facility] Comment on above: Performed By: #### H [facility] ####[facility] (DEFAULT)[address] [place] [address] MCV (RBC) [Entitic vol] 86.5 fL Normal 79.0-94.5 [facility] Comment on above: Performed By: #### H [facility] ####[facility] (DEFAULT)[address] [place] [address] Mean Cell Hgb 27.9 pg Normal 26.1-33.3 [facility] Comment on above: Performed By: #### H EMOGC ####[facility] (DEFAULT)[address] [facility] [place] [address] Mean Cell Hgb Conc 32.3 g/dL Normal 31.9-36.5 [facility] Comment on above: Performed By: #### H EMOGC ####[facility] (DEFAULT)[address] [place] [address] Platelet mean volume (Bld) [Entitic vol] 10.5 fL Normal 8.7-12.3 [facility] Comment on above: Performed By: #### H EMOGC ####[facility] (DEFAULT)[address] [facility] [place] [address] Platelets (Bld) [#/Vol] 159 10*3/uL Normal 146-337 [facility] Comment on above: Performed By: #### H EMOGC ####[facility] (DEFAULT)[address] [place] [address] RBC (Bld) [#/Vol] 4.30 10*6/uL Low 4.38-5.83 [facility] Comment on above: Performed By: #### H EMOGC ####[facility] (DEFAULT)[address] [facility] [place] [address] RBC Distribution 14.0 % Normal 10.9-14.3 [facility] Comment on above: Performed By: #### H EMOGC ####[facility] (DEFAULT)[address] [place] [address] WBC (Bld) [#/Vol] 3.69 10*3/uL Low 3.73-10.10 [facility] Comment on above: Performed By: #### H EMOGC ####[facility] (DEFAULT)[address] [place] [address] CHEM 7 (LYTES,BUN,CREA,GLUC) on 01-17-2024 Anion gap [Moles/Vol] 13 mmol/L 7 - 17 mmol/L [facility] Chloride [Moles/Vol] 109 mmol/L High 98 - 10 8 mmol/L [facility] CO2 [Moles/Vol] 21 mmol/L 21 - 31 mmol/L [facility] Creatinine [Mass/Vol] 1.04 mg/dL 0.70 - 1.30 mg/dL [facility] eGFR, CKD-EPI, Male 86 - PINF [facility] Comment on above: Reported eGFR is bas ed on the CKD-EPI 2020 equation using creatinine, age, and sex. Glucose [Mass/Vol] 82 mg/dL 70 - 99 mg/dL [facility] Osmolality Calc [Osmolality] 292 [facility] Potassium [Moles/Vol] 4.4 mmol/L 3.5 - 5.0 mmol/L [facility] Sodium [Moles/Vol] 139 mmol/L 135 - 145 mmol/L [facility] Urea nitrogen [Mass/Vol] 17 mg/dL 7 - 25 mg/dL [facility] Urea nitrogen/Creatinine [Mass ratio] 16 mg/mg [facility] Anion gap [Moles/Vol] 13 mmol/L Normal 7-17 [facility] Comment on above: Performed By: #### C HM7, HFP, MGO ####[facility] (DEFAULT)[address] [place] [address] Chloride [Moles/Vol] 109 mmol/L High 98-108 [facility] Comment on above: Performed By: #### C HM7, HFP, MGO ####[facility] (DEFAULT)[address] [place] [address] CO2 [Moles/Vol] 21 mmol/L Normal 21-31 [facility] Comment on above: Performed By: #### C HM7, HFP, MGO ####[facility] (DEFAULT)[address] [place] [address] Creatinine [Mass/Vol] 1.04 mg/dL Normal 0.70-1.30 [facility] Comment on above: Performed By: #### TAVO GONG, MGO ####[facility] (DEFAULT)[address] [place] [address] GFR/1.73 sq M.predicted among non-blacks MDRD (S/P/Bld) [Vol rate/Area] 86 mL/min/{1.73_m2} Normal >=60 [facility] Comment on above: Result Comment: Repo rted eGFR is based on the CKD-EPI 2020 equation using creatinine, age, and sex. Performed By: #### C HMJessica, TAVO, MGO ####[facility] (DEFAULT)[address] [facility] [place] [address] Glucose [Mass/Vol] 82 mg/dL Normal 70-99 [facility] Comment on above: Performed By: #### C JASMYNE, HFP, MGO ####[facility] (DEFAULT)[address] [facility] [place] [address] Osmolality [Osmolality] 292 mosm/kg Normal 278-305 [facility] Comment on above: Performed By: #### C HMJessica, HFP, MGO ####[facility] (DEFAULT)[address] [facility] [place] [address] Potassium [Moles/Vol] 4.4 mmol/L Normal 3.5-5.0 [facility] Comment on above: Performed By: #### Chinedu HM7, HFP, MGO ####[facility] (DEFAULT)[address] [facility] [place] [address] Sodium [Moles/Vol] 139 mmol/L Normal 135-145 [facility] Comment on above: Performed By: #### Chinedu HM7, HFP, MGO ####[facility] (DEFAULT)[address] [facility] [place] [address] Urea nitrogen [Mass/Vol] 17 mg/dL Normal 7-25 [facility] Comment on above: Performed By: #### C HM7, HFP, MGO ####[facility] (DEFAULT)[address] [place] [address] Urea nitrogen/Creatinine [Mass ratio] 16 mg/mg Normal [facility] Comment on above: Performed By: #### C HM7, HFP, MGO ####[facility] (DEFAULT)[address] [place] [address] CT ABDOMEN/PELVIS WITHOUT CO NTRASTon 01-17-2024 CT ABDOMEN/PELVIS WITHOUT CONTRAST Normal [facility] CT Abdomen and Pelvis [...] unremarkable. Kidneys: Severe atrophy of the bilateral [place] kidney is without hydronephrosis. Right lower quadrant [...] unremarkable. Kidneys: Severe atrophy of the bilateral [place] kidney is without hydronephrosis. Right lower quadrant [...] lobe. Trace left pleural effusion. [facility] Radiology Study observation (narrative) [facility] HEPATIC FUNCTION PANELon Albumin [Mass/Vol] 3.5 g/dL 3.5 - 5.0 g/dL [facility] ALP [Catalytic activity/Vol] 73 U/L 32 - 126 U/L [facility] ALT [Catalytic activity/Vol] 7 U/L Low 10 - 52 U/L [facility] AST [Catalytic activity/Vol] 25 U/L 10 - 39 U/L [facility] Bilirubin [Mass/Vol] 1.8 mg/dL High NINF - 1.5 mg/dL [facility] Bilirubin.direct [Mass/Vol] 0.3 mg/dL High NINF - 0.3 mg/dL [facility] Protein [Mass/Vol] 6.0 g/dL Low 6.4 - 8.3 g/dL [facility] Albumin [Mass/Vol] 3.5 g/dL Normal 3.5-5.0 [facility] Comment on above: Performed By: #### C HM7, HFP, MGO ####[facility] (DEFAULT)[address] [place] [address] ALP [Catalytic activity/Vol] 73 U/L Normal 32-126 [facility] Comment on above: Performed By: #### C HM7, HFP, MGO ####[facility] (DEFAULT)[address] [place] [address] ALT [Catalytic activity/Vol] 7 U/L Low 10-52 [facility] Comment on above: Performed By: #### C HM7, HFP, MGO ####[facility] (DEFAULT)[address] [place] [address] AST [Catalytic activity/Vol] 25 U/L Normal 10-39 [facility] Comment on above: Performed By: #### C HM7, HFP, MGO ####[facility] (DEFAULT)[address] [place] [address] Bilirubin [Mass/Vol] 1.8 mg/dL High <1.5 [facility] Comment on above: Performed By: #### C HM7, HFP, MGO ####[facility] (DEFAULT)[address] [place] [address] Bilirubin.indirect [Mass/Vol] 0.3 mg/dL High <0.3 [facility] Comment on above: Performed By: #### C HMJessica, TAVO, MGO ####[facility] (DEFAULT)[address] [place] [address] Protein [Mass/Vol] 6.0 g/dL Low 6.4-8.3 [facility] Comment on above: Performed By: #### C HM7, TAVO, MGO ####[facility] (DEFAULT)[address] [place] [address], [place] [address] HISTOPLASMA AND BLASTOMYCES ANTIGEN, ENZYME IMMUNOASSAY, SERMon 01-17-2024 Histoplasma/Blastomy [place] Ag Result Not detected Normal Not Detected [facility] Comment on above: Result Comment: No a ntigen from Histoplasma or Blastomyces detected. Falsenegative results may occur depending on extent of disease,and/or site of infection. Repeat testing on a new specimenif clinically indicated. Performed By: #### H CORAL ####[facility] (DEFAULT)[address] [place] [address], [place] [address] Histoplasma/Blastomy [place]ia Ag Value Not detected Normal [facility] Comment on above: Result Comment: ---- ADDITIONAL INFORMATION This test was developed and its performance characteristicsdetermined by [facility] in a manner consistent with CLIArequirements. This test has not been cleared or approved bythe U.S. Food and Drug Administration.Test Performed by:[facility] [place] [id number] Director: Rosendo Bose M.D. Ph.D.; CLIA# [id number] Performed By: #### H CORAL ####[facility] (DEFAULT)[address] [place] [address], [place] [address] MAGNESIUMon 01-17-2024 Interpretation and review of laboratory results Normal [facility] Magnesium [Mass/Vol] 1.7 mg/dL 1.6 - 2 .6 mg/dL [facility] Magnesium [Mass/Vol] 1.7 mg/dL Normal 1.6-2.6 [facility] Comment on above: Performed By: #### C HM7, HFP, MGO ####[facility] (DEFAULT)[address] [place] [address] No Panel Informationon 01-17 Interpretation and review of laboratory results Abnormal [facility] PT,INR,PTTon 01-17-2024 aPTT Coag (PPP) [Time] 29.9 s [facility] INR Coag (Bld) [Relative time] 1.1 {INR} 0.9 - 1.1 [facility] Interpretation and review of laboratory results Abnormal [facility] PT Coag (PPP) [Time] 14.5 s High [facility] aPTT Coag (Bld) [Time] 29.9 s Normal 24.0-34.3 [facility] Comment on above: Performed By: #### P TPTT ####[facility] (DEFAULT)[address] [place] [address] INR Coag (PPP) [Relative time] 1.1 {INR} Normal 0.9-1.1 [facility] Comment on above: Performed By: #### P TPTT ####[facility] (DEFAULT)[address] [place] [address] PT Coag (PPP) [Time] 14.5 s High 11.9-14.2 [facility] Comment on above: Performed By: #### P TPTT ####[facility] (DEFAULT)[address] [place] [address] B-TYPE NATRIURETIC PEPTIDE ( BRAIN)on 01-16-2024 Interpretation and review of laboratory results Abnormal [facility] Natriuretic peptide B (Bld) [Mass/Vol] 212 pg/mL High 0 - 100 pg/mL [facility] Natriuretic peptide B (Bld) [Mass/Vol] 212 pg/mL High 0-100 [facility] Comment on above: Performed By: #### B COPY DIRECTOR ####[facility] (DEFAULT)[address] [place] [address] CALCIUMon 01-16-2024 Calcium [Mass/Vol] 8.5 mg/dL Low 8.6 - 10. 5 mg/dL [facility] Calcium [Mass/Vol] 8.5 mg/dL Low 8.6-10.5 [facility] Comment on above: Performed By: #### C A, IPB, MGO, CHM7, HFP ####[facility] (DEFAULT)[address] [place] [address] DARYL AURIS SCREEN BY PCRo n 01-16-2024 Daryl auris Screen by PCR Not detected Normal Not Detected [facility] Comment on above: Order Comment: This test was performed using a real-time PCR assay. This test was developed, and its performance characteristics determined by [facility]. It has not been cleared or approved by the FDA. The laboratory is regulated under CLIA as qualified to perform high-complexity testing. This test is used for clinical purposes. It should not be regarded as investigational or for research. Performed By: #### C ANDIDA AURIS SCREEN BY PCR ####[facility] (DEFAULT)[address] [place] [address] CBC AND ELECTRONIC DIFFon Basophils (Bld) [#/Vol] K/uL 0.00 - 0.09 K/uL [facility] Basophils/100 WBC (Bld) 0.6 % [facility] Differential cell count method Nom (Bld) Electronic Differential [facility] Eosinophils (Bld) [#/Vol] 0.09 10*3/uL 0.00 - 0.48 K/uL [facility] Eosinophils/100 WBC (Bld) 2.5 % [facility] Erythrocyte distribution width (RBC) [Ratio] 14.0 % 10.9 - 14.3 % [facility] Hematocrit (Bld) [Volume fraction] 37.4 % Low 39.6 - 48.8 % [facility] Hemoglobin (Bld) [Mass/Vol] 12.1 g/dL Low 13.4 - 16.8 g/dL [facility] Immature granulocytes (Bld) [#/Vol] K/uL NINF - 0.07 K/uL [facility] Immature granulocytes/100 WBC (Bld) 0.3 % [facility] Interpretation and review of laboratory results Abnormal [facility] Lymphocytes (Bld) [#/Vol] 1.16 10*3/uL 0.83 - 3.57 K/uL [facility] Lymphocytes/100 WBC (Bld) 32.0 % [facility] MCH (RBC) [Entitic mass] 28.4 pg 26.1 - 33.3 pg [facility] MCHC (RBC) [Mass/Vol] 32.4 g/dL 31.9 - 36.5 g/dL [facility] MCV (RBC) [Entitic vol] 87.8 fL 79.0 - 94.5 fL [facility] Monocytes (Bld) [#/Vol] 0.43 10*3/uL 0.24 - 0.93 K/uL [facility] Monocytes/100 WBC (Bld) 11.9 % [facility] Neutrophils (Bld) [#/Vol] 1.91 10*3/uL 1.57 - 6.19 K/uL [facility] Nucleated RBC/100 WBC (Bld) [Ratio] 0.0 % [facility] Platelet mean volume (Bld) [Entitic vol] 10.1 fL 8.7 - 12.3 fL [facility] Platelets (Bld) [#/Vol] 155 10*3/uL 146 - 337 K/uL [facility] RBC (Bld) [#/Vol] 4.26 10*6/uL Low [facility] Segmented neutrophils/100 WBC (Bld) 52.7 % [facility] WBC (Bld) [#/Vol] 3.62 10*3/uL Low 3.73 - 10. 10 K/uL [facility] Abs Baso Auto < Normal 0.00-0.09 [facility] Comment on above: Performed By: #### L [id number] ####[facility] (DEFAULT)[address] [place] [address] Basophils/100 WBC (Bld) 0.6 % Normal [facility] Comment on above: Performed By: #### L [id number] ####[facility] (DEFAULT)[address] [place] [address] DIFF STATUS Electronic Differential Normal [facility] Comment on above: Performed By: #### L [id number] ####[facility] (DEFAULT)[address] [place] [address] Eosinophils (Bld) [#/Vol] 0.09 10*3/uL Normal 0.00-0.48 [facility] Comment on above: Performed By: #### L [id number] ####[facility] (DEFAULT)[address] [place] [address] Eosinophils/100 WBC (Bld) 2.5 % Normal [facility] Comment on above: Performed By: #### L [id number] ####[facility] (DEFAULT)[address] [place] [address] Hematocrit (Bld) [Volume fraction] 37.4 % Low 39.6-48.8 [facility] Comment on above: Performed By: #### L [id number] ####[facility] (DEFAULT)[address] [place] [address] Hemoglobin (Bld) [Mass/Vol] 12.1 g/dL Low 13.4-16.8 [facility] Comment on above: Performed By: #### L [id number] ####[facility] (DEFAULT)[address] [place] [address] Immature Grans % 0.3 % Normal [facility] Comment on above: Performed By: #### L [id number] ####[facility] (DEFAULT)[address] [facility] [place] [address] Immature Grans Absolute < Normal <=0.07 [facility] Comment on above: Performed By: #### L [id number] ####[facility] (DEFAULT)[address] [place] [address] Lymphocytes (Bld) [#/Vol] 1.16 10*3/uL Normal 0.83-3.57 [facility] Comment on above: Performed By: #### L [id number] ####[facility] (DEFAULT)[address] [place] [address], [place] [address] Lymphocytes/100 WBC (Bld) 32.0 % Normal [facility] Comment on above: Performed By: #### L [id number] ####[facility] (DEFAULT)[address] [place] [address], [place] [address] MCV (RBC) [Entitic vol] 87.8 fL Normal 79.0-94.5 [facility] Comment on above: Performed By: #### L [id number] ####[facility] (DEFAULT)[address] [place] [address] Mean Cell Hgb 28.4 pg Normal 26.1-33.3 [facility] Comment on above: Performed By: #### L [id number] ####[facility] (DEFAULT)[address] [place] [address] Mean Cell Hgb Conc 32.4 g/dL Normal 31.9-36.5 [facility] Comment on above: Performed By: #### L [id number] ####[facility] (DEFAULT)[address] [place] [address] Monocytes (Bld) [#/Vol] 0.43 10*3/uL Normal 0.24-0.93 [facility] Comment on above: Performed By: #### L [id number] ####[facility] (DEFAULT)[address] [place] [address] Monocytes/100 WBC (Bld) 11.9 % Normal [facility] Comment on above: Performed By: #### L [id number] ####[facility] (DEFAULT)[address] [place] [address] Nucleated RBC 0.0 /100 WBC Normal <=0.2 [facility] Comment on above: Performed By: #### L [id number] ####[facility] (DEFAULT)[address] [place] [address] Platelet mean volume (Bld) [Entitic vol] 10.1 fL Normal 8.7-12.3 [facility] Comment on above: Performed By: #### L [id number] ####[facility] (DEFAULT)[address] [place] [address] Platelets (Bld) [#/Vol] 155 10*3/uL Normal 146-337 [facility] Comment on above: Performed By: #### L [id number] ####[facility] (DEFAULT)[address] [place] [address] RBC (Bld) [#/Vol] 4.26 10*6/uL Low 4.38-5.83 [facility] Comment on above: Performed By: #### L [id number] ####[facility] (DEFAULT)[address] [place] [address] RBC Distribution 14.0 % Normal 10.9-14.3 [facility] Comment on above: Performed By: #### L [id number] ####[facility] (DEFAULT)[address] [place] [address] Segs + Bands Auto 52.7 % Normal [facility] Comment on above: Performed By: #### L [id number] ####[facility] (DEFAULT)[address] [place] [address] Segs + Bands,Absolute Auto 1.91 K/uL Normal 1.57-6.19 [facility] Comment on above: Performed By: #### L [id number] ####[facility] (DEFAULT)[address] [place] [address] WBC (Bld) [#/Vol] 3.62 10*3/uL Low 3.73-10.10 [facility] Comment on above: Performed By: #### L [id number] ####[facility] (DEFAULT)[address] [place] [address] CHEM 7 (LYTES,BUN,CREA,GLUC) on 01-16-2024 Anion gap [Moles/Vol] 11 mmol/L 7 - 17 mmol/L [facility] Chloride [Moles/Vol] 108 mmol/L 98 - 10 8 mmol/L [facility] CO2 [Moles/Vol] 24 mmol/L 21 - 31 mmol/L [facility] Creatinine [Mass/Vol] 1.04 mg/dL 0.70 - 1.30 mg/dL [facility] eGFR, CKD-EPI, Male 86 - PINF [facility] Comment on above: Reported eGFR is bas ed on the CKD-EPI 2020 equation using creatinine, age, and sex. Glucose [Mass/Vol] 95 mg/dL 70 - 99 mg/dL [facility] Osmolality Calc [Osmolality] 293 [facility] Potassium [Moles/Vol] 4.0 mmol/L 3.5 - 5.0 mmol/L [facility] Sodium [Moles/Vol] 139 mmol/L 135 - 145 mmol/L [facility] Urea nitrogen [Mass/Vol] 19 mg/dL 7 - 25 mg/dL [facility] Urea nitrogen/Creatinine [Mass ratio] 18 mg/mg [facility] Anion gap [Moles/Vol] 11 mmol/L Normal - [facility] Comment on above: Performed By: #### C A, IPB, MGO, CHM7, HFP ####[facility] (DEFAULT)[address] [place] [address] Chloride [Moles/Vol] 108 mmol/L Normal 98-108 [facility] Comment on above: Performed By: #### C Tray, IPB, MGO, CHM7, HFP ####[facility] (DEFAULT)[address] [place] [address] CO2 [Moles/Vol] 24 mmol/L Normal 21-31 [facility] Comment on above: Performed By: #### C Tray, IPB, MGO, CHM7, HFP ####[facility] (DEFAULT)[address] [facility] [place] [address] Creatinine [Mass/Vol] 1.04 mg/dL Normal 0.70-1.30 [facility] Comment on above: Performed By: #### C Tray IPB, MGO, CHM7, HFP ####[facility] (DEFAULT)[address] [place] [address] GFR/1.73 sq M.predicted among non-blacks MDRD (S/P/Bld) [Vol rate/Area] 86 mL/min/{1.73_m2} Normal >=60 [facility] Comment on above: Result Comment: Repo rted eGFR is based on the CKD-EPI 2020 equation using creatinine, age, and sex. Performed By: #### C Tray, IPB, MGO, CHM7, HFP ####[facility] (DEFAULT)[address] [facility] [place] [address] Glucose [Mass/Vol] 95 mg/dL Normal 70-99 [facility] Comment on above: Performed By: #### C Tray IPB, MGO, CHM7, HFP ####[facility] (DEFAULT)[address] [facility] [place] [address] Osmolality [Osmolality] 293 mosm/kg Normal 278-305 [facility] Comment on above: Performed By: #### C Tray IPB, MGO, CHM7, HFP ####[facility] (DEFAULT)[address] [place] [address] Potassium [Moles/Vol] 4.0 mmol/L Normal 3.5-5.0 [facility] Comment on above: Performed By: #### C A, IPB, MGO, CHM7, HFP ####[facility] (DEFAULT)[address] [place] [address] Sodium [Moles/Vol] 139 mmol/L Normal 135-145 [facility] Comment on above: Performed By: #### C A, IPB, MGO, CHM7, HFP ####[facility] (DEFAULT)[address] [place] [address] Urea nitrogen [Mass/Vol] 19 mg/dL Normal 7-25 [facility] Comment on above: Performed By: #### C A, IPB, MGO, CHM7, HFP ####[facility] (DEFAULT)[address] [place] [address] Urea nitrogen/Creatinine [Mass ratio] 18 mg/mg Normal [facility] Comment on above: Performed By: #### C A, IPB, MGO, CHM7, HFP ####[facility] (DEFAULT)[address] [place] [address] D-DIMER,QUANTITATIVEOrdered By: Shaji Kelly on 01-16-2024 Fibrin D-dimer FEU (PPP) [Mass/Vol] 0.67 High [facility] Comment on above: The D-Dimer assay is intended for use in conjuction with a clinical pretest probability (PTP) assessment model to exclude pulmonary embolism (PE) and as an aid in the diagnosis of Deep Vein Thrombosis (DVT) in outpatients suspected of PE or DVT. For the assay in use at [facility] ([facility]), a cutoff of <0.50 mcg/mL has a Negative Predictive Value of 99.7% for exclusion of DVT in low and moderate PTP patients. Interpretation and review of laboratory results Abnormal [facility] D-DIMER,QUANTITATIVEon 01-16 D-Dimer, High Sensitivity 0.67 mcg/mL FEU High <0.50 [facility] Comment on above: Result Comment: The D-Dimer assay is intended for use in conjuction with a clinical pretest probability (PTP) assessment model to exclude pulmonary embolism (PE) and as an aid in the diagnosis of Deep Vein Thrombosis (DVT) in outpatients suspected of PE or DVT. For the assay in use at [facility] ([facility]), a cutoff of <0.50 mcg/mL has a Negative Predictive Value of 99.7% for exclusion of DVT in low and moderate PTP patients. Performed By: #### P TPTT, HSDDI ####[facility] (DEFAULT)[address] [place] [address] HEPATIC FUNCTION PANELon Albumin [Mass/Vol] 3.7 g/dL 3.5 - 5.0 g/dL [facility] ALP [Catalytic activity/Vol] 70 U/L 32 - 126 U/L [facility] ALT [Catalytic activity/Vol] 8 U/L Low 10 - 52 U/L [facility] AST [Catalytic activity/Vol] 21 U/L 10 - 39 U/L [facility] Bilirubin [Mass/Vol] 1.9 mg/dL High [facility] - 1.5 mg/dL [facility] Bilirubin.direct [Mass/Vol] 0.4 mg/dL High NINF - 0.3 mg/dL [facility] Protein [Mass/Vol] 6.1 g/dL Low 6.4 - 8.3 g/dL [facility] Albumin [Mass/Vol] 3.7 g/dL Normal 3.5-5.0 [facility] Comment on above: Performed By: #### C A, IPB, MGO, CHM7, HFP ####[facility] (DEFAULT)[address] [place] [address] ALP [Catalytic activity/Vol] 70 U/L Normal 32-126 [facility] Comment on above: Performed By: #### C Tray, IPB, MGO, CHM7, HFP ####[facility] (DEFAULT)[address] [place] [address] ALT [Catalytic activity/Vol] 8 U/L Low 10-52 [facility] Comment on above: Performed By: #### C A, IPB, MGO, CHM7, HFP ####[facility] (DEFAULT)[address] [place] [address] AST [Catalytic activity/Vol] 21 U/L Normal 10-39 [facility] Comment on above: Performed By: #### C A, IPB, MGO, CHM7, HFP ####[facility] (DEFAULT)[address] [place] [address] Bilirubin [Mass/Vol] 1.9 mg/dL High <1.5 [facility] Comment on above: Performed By: #### C A, IPB, MGO, CHM7, HFP ####[facility] (DEFAULT)[address] [place] [address] Bilirubin.indirect [Mass/Vol] 0.4 mg/dL High <0.3 [facility] Comment on above: Performed By: #### C A, IPB, MGO, CHM7, HFP ####[facility] (DEFAULT)[address] [place] [address] Protein [Mass/Vol] 6.1 g/dL Low 6.4-8.3 [facility] Comment on above: Performed By: #### C A, IPB, MGO, CHM7, HFP ####[facility] (DEFAULT)[address] [place] [address] MAGNESIUMon 01-16-2024 Magnesium [Mass/Vol] 1.7 mg/dL 1.6 - 2 .6 mg/dL [facility] Magnesium [Mass/Vol] 1.7 mg/dL Normal 1.6-2.6 [facility] Comment on above: Performed By: #### JO ANN Willis MGO, HELENM7, HFP ####[facility] (DEFAULT)[address] [place] [address] No Panel Informationon 01-16 Interpretation and review of laboratory results Abnormal [facility] Interpretation and review of laboratory results Normal [facility] PHOSPHATE, INORGANICon 01-16 Phosphate [Mass/Vol] 4.1 mg/dL 2.2 - 4 .6 mg/dL [facility] Phosphorous 4.1 mg/dL Normal 2.2-4.6 [facility] Comment on above: Performed By: #### JO ANN Willis, MGRogelio, CHM7, HFP ####[facility] (DEFAULT)[address] [place] [address] PT,INR,PTTon 01-16-2024 aPTT Coag (PPP) [Time] 29.6 s [facility] INR Coag (Bld) [Relative time] 1.2 {INR} High 0.9 - 1.1 [facility] Interpretation and review of laboratory results Abnormal [facility] PT Coag (PPP) [Time] 14.9 s High [facility] aPTT Coag (Bld) [Time] 29.6 s Normal 24.0-34.3 [facility] Comment on above: Performed By: #### P TPTT, HSDDI ####[facility] (DEFAULT)[address] [place] [address] INR Coag (PPP) [Relative time] 1.2 {INR} High 0.9-1.1 [facility] Comment on above: Performed By: #### P TPTT, HSDDI ####[facility] (DEFAULT)[address] [place] [address] PT Coag (PPP) [Time] 14.9 s High 11.9-14.2 [facility] Comment on above: Performed By: #### P TPTT, HSDDI ####[facility] (DEFAULT)[address] [place] [address] TACROLIMUS LEVEL, TROUGH (NC E DRUG LEVEL)Ordered By: Jimy Castillo on 01-16-2024 Interpretation and review of laboratory results Normal [facility] Tacrolimus (Bld) [Mass/Vol] 5.7 ng/mL Bone Marrow Transplant: 4.0-12.0, Therapeutic: 5.0-15.0 [facility] Method performed is a chemiluminescent microparticle immunoasssay on the [employer] i2000. The range is based on experience at [facility] and users should be aware that target concentrations vary widely depending on concomitant therapy, time post-transplant, and desired degree of immunosuppression. [facility] TACROLIMUS LEVEL, TROUGH (NC E DRUG LEVEL)on 01-16-2024 Tacrolimus, Trough 5.7 ng/mL Normal Bone Susana ow Transplant: 4.0-12.0, Therapeutic: 5.0-15.0 [facility] Comment on above: Order Comment: Pleas e draw at specified interval PRIOR to dose. Do not hold dose to wait for level. Specimens batched twice per day, (M-F) and once per day weekendsMethod performed is a chemiluminescent microparticle immunoasssay on the [employer] i[employer].The range is based on experience at [facility] and users should be aware that target concentrations vary widely depending on concomitant therapy, time post-transplant, and desired degree of immunosuppression. Performed By: #### T ACRO ####[facility] (DEFAULT)[address] [place] [address] US ABDOMEN LIVER DOPPLERon 0 01-16-2024 US ABDOMEN LIVER DOPPLER Normal [facility] US.doppler Abdominal vessels on 01-16-2024 IMPRESSION: [...] pleural effusion. Trace right upper quadrant ascites. [facility] Radiology Study observation (narrative) [facility] US.doppler Abdominal vessels Ordered By: Iona Duran on 01-16-2024 [facility] Work Phone: XR CHEST PA AND LATERAL 2 EWSon 01-16-2024 XR CHEST PA AND LATERAL 2 VIEWS Normal [facility] XR Chest PA and Lateralon IMPRESSION: [...] Normal IMPRESSION IMPRESSION: Moderate right pleural effusion. [facility] Radiology Study observation (narrative) [facility] XR Chest PA and LateralOrder ed By: Daisha Patterson on 01-16-2024 [facility] Work Phone: ALL CBC WITH AUTO DIFFon BASOPHILS ABSOLUTE AUTO 0.0 [facility] Basophils/100 WBC (Bld) 0.5 % 0.2 - 2.0 % [facility] Eosinophils/100 WBC (Bld) 2.8 % 0.9 - 7.0 % [facility] Erythrocyte distribution width (RBC) [Ratio] 13.8 % 11.0 - 15.0 % [facility] Hematocrit (Bld) [Volume fraction] 43.7 % 42.0 - 54.0 % [facility] Hemoglobin (Bld) [Mass/Vol] 14.0 g/dL 14.0 - 18.0 g/dL [facility] IMMATURE GRANULOCYTES ABS AUTO 0.01 [facility] Immature granulocytes/100 WBC (Bld) 0.3 % 0.0 - 0.5 % [facility] LYMPHOCYTES ABSOLUTE AUTO 1.5 [facility] Lymphocytes/100 WBC (Bld) 37.5 % 20.5 - 60.0 % [facility] MCH (RBC) [Entitic mass] 28.4 pg 25.9 - 34.0 pg [facility] MCHC (RBC) [Mass/Vol] 32.0 g/dL 29.9 - 35.2 g/dL [facility] MCV (RBC) [Entitic vol] 88.6 fL 80.0 - 94.0 fL [facility]OCYTES ABSOLUTE [facility] Monocytes/100 WBC (Bld) 11.9 % 1.7 - 12.0 % [facility] NEUTROPHILS ABSOLUTE AUTO 1.9 [facility] Neutrophils/100 WBC (Bld) 47.0 % 43.0 - 75.0 % [facility] Platelet mean volume (Bld) [Entitic vol] 10.3 fL 9.5 - 13.5 fL [facility] TBH EO # 0.1 [facility] PLT 180 [facility] RBC 4.93 [facility] WBC 4.0 [facility] ALL CBC WITH AUTO DIFFon BASOPHILS ABSOLUTE AUTO 0.0 [facility] Basophils/100 WBC (Bld) 0.5 % 0.2 - 2.0 % [facility] Eosinophils/100 WBC (Bld) 2.6 % 0.9 - 7.0 % [facility] Erythrocyte distribution width (RBC) [Ratio] 13.5 % 11.0 - 15.0 % [facility] Hematocrit (Bld) [Volume fraction] 43.8 % 42.0 - 54.0 % [facility] Hemoglobin (Bld) [Mass/Vol] 14.0 g/dL 14.0 - 18.0 g/dL [facility] IMMATURE GRANULOCYTES ABS AUTO 0.00 [facility] Immature granulocytes/100 WBC (Bld) 0.0 % 0.0 - 0.5 % [facility] Interpretation and review of laboratory results Abnormal [facility] LYMPHOCYTES ABSOLUTE AUTO 1.8 [facility] Lymphocytes/100 WBC (Bld) 45.2 % 20.5 - 60.0 % [facility] MCH (RBC) [Entitic mass] 27.9 pg 25.9 - 34.0 pg [facility] MCHC (RBC) [Mass/Vol] 32.0 g/dL 29.9 - 35.2 g/dL [facility] MCV (RBC) [Entitic vol] 87.4 fL 80.0 - 94.0 fL [facility] MONOCYTES ABSOLUTE AUTO 0.4 [facility] Monocytes/100 WBC (Bld) 9.6 % 1.7 - 12.0 % [facility] NEUTROPHILS ABSOLUTE AUTO 1.6 [facility] Neutrophils/100 WBC (Bld) 42.1 % Low 43.0 - 75.0 % [facility] Platelet mean volume (Bld) [Entitic vol] 9.8 fL 9.5 - 13.5 fL [facility] EO # 0.1 [facility] PLT 180 [facility] RBC 5.01 [facility] WBC 3.9 Low [facility] CHEM 7 (LYTES,BUN,CREA,GLUC) on 09-11-2023 Anion gap [Moles/Vol] 13 mmol/L 7 - 17 mmol/L [facility] Chloride [Moles/Vol] 111 mmol/L High 98 - 10 8 mmol/L [facility] CO2 [Moles/Vol] 20 mmol/L Low 21 - 31 mmol/L [facility] Creatinine [Mass/Vol] 1.13 mg/dL 0.70 - 1.30 mg/dL [facility] eGFR, CKD-EPI, Male 78 - PINF [facility] Glucose [Mass/Vol] 109 mg/dL High 70 - 99 mg/dL [facility] Interpretation and review of laboratory results Abnormal [facility] Osmolality Calc [Osmolality] 295 [facility] Potassium [Moles/Vol] 4.3 mmol/L 3.5 - 5.0 mmol/L [facility] Sodium [Moles/Vol] 140 mmol/L 135 - 145 mmol/L [facility] Urea nitrogen [Mass/Vol] 16 mg/dL 7 - 25 mg/dL [facility] Urea nitrogen/Creatinine [Mass ratio] 14 mg/mg [facility] Anion gap [Moles/Vol] 13 mmol/L Normal 7-17 [facility] Comment on above: Performed By: ###NATHANIEL HERNANDEZ ####[facility] (DEFAULT)[address] [place] [address] Chloride [Moles/Vol] 111 mmol/L High 98-108 [facility] Comment on above: Performed By: #### NATHANIEL RAMÍREZ ####[facility] (DEFAULT)[address] [place] [address] CO2 [Moles/Vol] 20 mmol/L Low 21-31 [facility] Comment on above: Performed By: #### NATHANIEL RAMÍREZ ####[facility] (DEFAULT)[address] [place] [address] Creatinine [Mass/Vol] 1.13 mg/dL Normal 0.70-1.30 [facility] Comment on above: Performed By: #### NATHANIEL RAMÍREZ ####[facility] (DEFAULT)[address] [place] [address] GFR/1.73 sq M.predicted among non-blacks MDRD (S/P/Bld) [Vol rate/Area] 78 mL/min/{1.73_m2} Normal >=60 [facility] Comment on above: Result Comment: Repo rted eGFR is based on the CKD-EPI 2020 equation using creatinine, age, and sex. Performed By: #### TJ RAMÍREZ7 ####[facility] (DEFAULT)[address] [place] [address] Glucose [Mass/Vol] 109 mg/dL High 70-99 [facility] Comment on above: Performed By: #### Rod BLOOM CHRod7 ####[facility] (DEFAULT)[address] [place] [address] Osmolality [Osmolality] 295 mosm/kg Normal 278-305 [facility] Comment on above: Performed By: #### Rod BLOOM CHM7 ####[facility] (DEFAULT)[address] [place] [address] Potassium [Moles/Vol] 4.3 mmol/L Normal 3.5-5.0 [facility] Comment on above: Performed By: #### Rod BLOOM CHM7 ####[facility] (DEFAULT)[address] [place] [address] Sodium [Moles/Vol] 140 mmol/L Normal 135-145 [facility] Comment on above: Performed By: #### Rod BLOOM CHM7 ####[facility] (DEFAULT)[address] [place] [address] Urea nitrogen [Mass/Vol] 16 mg/dL Normal 7-25 [facility] Comment on above: Performed By: #### Rod BLOOM CHM7 ####[facility] (DEFAULT)[address] [place] [address] Urea nitrogen/Creatinine [Mass ratio] 14 mg/mg Normal [facility] Comment on above: Performed By: #### Rod BLOOM CHM7 ####[facility] (DEFAULT)[address] [place] [address] GLUCOSE POCon 09-11-2023 Glucose [Mass/Vol] 108 mg/dL High 70 - 99 mg/dL [facility] Interpretation and review of laboratory results Abnormal [facility] POC Sample Type CAPBL [facility] Legionella sp identified Org specific cx Nom (Unsp spec)on 09-11-2023 Bacteria identified Cx Nom (Unsp spec) NO GROWTH DAY 7 OF [facility] MAGNESIUMon 09-11-2023 Interpretation and review of laboratory results Normal [facility] Magnesium [Mass/Vol] 1.6 mg/dL 1.6 - 2 .6 mg/dL [facility] Magnesium [Mass/Vol] 1.6 mg/dL Normal 1.6-2.6 [facility] Comment on above: Performed By: #### Rod BLOOM CHM7 ####[facility] (DEFAULT)[address] [place] [address] No Panel Informationon 09-11 [facility] TACROLIMUS LEVEL, TROUGH (NC E DRUG LEVEL)on 09-11-2023 Interpretation and review of laboratory results Normal [facility] Tacrolimus (Bld) [Mass/Vol] 11.5 ng/mL [facility] Tacrolimus, Trough 11.5 ng/mL Normal Bone Susana ow Transplant: 4.0-12.0, Therapeutic: 5.0-15.0 [facility] Comment on above: Order Comment: Pleas e draw at specified interval PRIOR to dose. Do not hold dose to wait for level. Specimens batched twice per day, (M-F) and once per day weekendsMethod performed is a chemiluminescent microparticle immunoasssay on the [employer] i2000.The range is based on experience at [facility] and users should be aware that target concentrations vary widely depending on concomitant therapy, time post-transplant, and desired degree of immunosuppression. Performed By: #### T ACRO ####[facility] (DEFAULT)[address] [place] [address] CBC,PLATELETSon 09-10-2023 Erythrocyte distribution width (RBC) [Ratio] 13.9 % 10.9 - 14.3 % [facility] Hematocrit (Bld) [Volume fraction] 40.0 % 39.6 - 48.8 % [facility] Hemoglobin (Bld) [Mass/Vol] 12.7 g/dL Low 13.4 - 16.8 g/dL [facility] Interpretation and review of laboratory results Abnormal [facility] MCH (RBC) [Entitic mass] 27.3 pg 26.1 - 33.3 pg [facility] MCHC (RBC) [Mass/Vol] 31.8 g/dL Low 31.9 - 36.5 g/dL [facility] MCV (RBC) [Entitic vol] 86.0 fL 79.0 - 94.5 fL [facility] Platelet mean volume (Bld) [Entitic vol] 9.5 fL 8.7 - 12.3 fL [facility] Platelets (Bld) [#/Vol] 225 10*3/uL 146 - 337 K/uL [facility] RBC (Bld) [#/Vol] 4.65 10*6/uL [facility] WBC (Bld) [#/Vol] 6.52 10*3/uL 3.73 - 10. 10 K/uL [facility] Hematocrit (Bld) [Volume fraction] 40.0 % Normal 39.6-48.8 [facility] Comment on above: Performed By: #### H EMO ####[facility] (DEFAULT)[address] [place] [address] Hemoglobin (Bld) [Mass/Vol] 12.7 g/dL Low 13.4-16.8 [facility] Comment on above: Performed By: #### H EMOGC ####[facility] (DEFAULT)[address] [place] [address] MCV (RBC) [Entitic vol] 86.0 fL Normal 79.0-94.5 [facility] Comment on above: Performed By: #### H EMOGC ####[facility] (DEFAULT)[address] [place] [address] Mean Cell Hgb 27.3 pg Normal 26.1-33.3 [facility] Comment on above: Performed By: #### H EMOGC ####[facility] (DEFAULT)[address] [place] [address] Mean Cell Hgb Conc 31.8 g/dL Low 31.9-36.5 [facility] Comment on above: Performed By: #### H EMOGC ####[facility] (DEFAULT)[address] [facility] [place] [address] Platelet mean volume (Bld) [Entitic vol] 9.5 fL Normal 8.7-12.3 [facility] Comment on above: Performed By: #### H EMOGC ####[facility] (DEFAULT)[address] [place] [address] Platelets (Bld) [#/Vol] 225 10*3/uL Normal 146-337 [facility] Comment on above: Performed By: #### H EMOGC ####[facility] (DEFAULT)[address] [facility] [place] [address] RBC (Bld) [#/Vol] 4.65 10*6/uL Normal 4.38-5.83 [facility] Comment on above: Performed By: #### H EMOGC ####[facility] (DEFAULT)[address] [facility] [place] [address] RBC Distribution 13.9 % Normal 10.9-14.3 [facility] Comment on above: Performed By: #### H EMOGC ####[facility] (DEFAULT)[address] [place] [address] WBC (Bld) [#/Vol] 6.52 10*3/uL Normal 3.73-10.10 [facility] Comment on above: Performed By: #### H [facility] ####[facility] (DEFAULT)[address] [place] [address] CHEM 7 (LYTES,BUN,CREA,GLUC) on 09-10-2023 Anion gap [Moles/Vol] 13 mmol/L 7 - 17 mmol/L [facility] Chloride [Moles/Vol] 111 mmol/L High 98 - 10 8 mmol/L [facility] CO2 [Moles/Vol] 20 mmol/L Low 21 - 31 mmol/L [facility] Creatinine [Mass/Vol] 1.27 mg/dL 0.70 - 1.30 mg/dL [facility] eGFR, CKD-EPI, Male 68 - PINF [facility] Glucose [Mass/Vol] 100 mg/dL High 70 - 99 mg/dL [facility] Osmolality Calc [Osmolality] 293 [facility] Potassium [Moles/Vol] 4.4 mmol/L 3.5 - 5.0 mmol/L [facility] Sodium [Moles/Vol] 140 mmol/L 135 - 145 mmol/L [facility] Urea nitrogen [Mass/Vol] 12 mg/dL 7 - 25 mg/dL [facility] Urea nitrogen/Creatinine [Mass ratio] 9 mg/mg [facility] Anion gap [Moles/Vol] 13 mmol/L Normal 7-17 [facility] Comment on above: Performed By: #### NATHANIEL RAMÍREZ, HFP ####[facility] (DEFAULT)[address] [place] [address] Chloride [Moles/Vol] 111 mmol/L High 98-108 [facility] Comment on above: Performed By: #### NATHANIEL RAMÍREZ, HFP ####[facility] (DEFAULT)[address] [place] [address] CO2 [Moles/Vol] 20 mmol/L Low 21-31 [facility] Comment on above: Performed By: #### NATHANIEL RAMÍREZ, HFP ####[facility] (DEFAULT)[address] [place] [address] Creatinine [Mass/Vol] 1.27 mg/dL Normal 0.70-1.30 [facility] Comment on above: Performed By: #### NATHANIEL RAMÍREZ, HFP ####[facility] (DEFAULT)[address] [place] [address] GFR/1.73 sq M.predicted among non-blacks MDRD (S/P/Bld) [Vol rate/Area] 68 mL/min/{1.73_m2} Normal >=60 [facility] Comment on above: Result Comment: Repo rted eGFR is based on the CKD-EPI 2020 equation using creatinine, age, and sex. Performed By: #### NATHANIEL RAMÍREZ, HFP ####[facility] (DEFAULT)[address] [place] [address] Glucose [Mass/Vol] 100 mg/dL High 70-99 [facility] Comment on above: Performed By: #### NATHANIEL RAMÍREZ, HFP ####[facility] (DEFAULT)[address] [place] [address] Osmolality [Osmolality] 293 mosm/kg Normal 278-305 [facility] Comment on above: Performed By: #### NATHANIEL RAMÍREZ, HFP ####[facility] (DEFAULT)[address] [place] [address] Potassium [Moles/Vol] 4.4 mmol/L Normal 3.5-5.0 [facility] Comment on above: Performed By: #### NATHANIEL RAMÍREZ, HFP ####[facility] (DEFAULT)[address] [place] [address] Sodium [Moles/Vol] 140 mmol/L Normal 135-145 [facility] Comment on above: Performed By: #### NATHANIEL RAMÍREZ, HFP ####[facility] (DEFAULT)[address] [place] [address] Urea nitrogen [Mass/Vol] 12 mg/dL Normal 7-25 [facility] Comment on above: Performed By: #### NATHANIEL RAMÍREZ, HFP ####[facility] (DEFAULT)[address] [place] [address] Urea nitrogen/Creatinine [Mass ratio] 9 mg/mg Normal [facility] Comment on above: Performed By: #### NATHANIEL RAMÍREZ, HFP ####[facility] (DEFAULT)[address] [place] [address] HEPATIC FUNCTION PANELon Albumin [Mass/Vol] 3.3 g/dL Low 3.5 - 5.0 g/dL [facility] ALP [Catalytic activity/Vol] 143 U/L High 32 - 126 U/L [facility] ALT [Catalytic activity/Vol] 28 U/L 10 - 52 U/L [facility] AST [Catalytic activity/Vol] 29 U/L 10 - 39 U/L [facility] Bilirubin [Mass/Vol] 0.9 mg/dL [facility] - 1.5 mg/dL [facility] Bilirubin.direct [Mass/Vol] 0.2 mg/dL NINF - 0.3 mg/dL [facility] Protein [Mass/Vol] 6.8 g/dL 6.4 - 8.3 g/dL [facility] Albumin [Mass/Vol] 3.3 g/dL Low 3.5-5.0 [facility] Comment on above: Performed By: #### NATHANIEL RAMÍREZ, HFP ####[facility] (DEFAULT)[address] [place] [address] ALP [Catalytic activity/Vol] 143 U/L High 32-126 [facility] Comment on above: Performed By: #### M HELEN BLOOMM7, HFP ####[facility] (DEFAULT)[address] [place] [address] ALT [Catalytic activity/Vol] 28 U/L Normal 10-52 [facility] Comment on above: Performed By: #### M HELEN BLOOMM7, HFP ####[facility] (DEFAULT)[address] [place] [address] AST [Catalytic activity/Vol] 29 U/L Normal 10-39 [facility] Comment on above: Performed By: #### M TJ BLOOM7, HFP ####[facility] (DEFAULT)[address] [place] [address] Bilirubin [Mass/Vol] 0.9 mg/dL Normal <1.5 [facility] Comment on above: Performed By: #### M TJ BLOOM7, HFP ####[facility] (DEFAULT)[address] [place] [address] Bilirubin.indirect [Mass/Vol] 0.2 mg/dL Normal <0.3 [facility] Comment on above: Performed By: #### M TJ BLOOM7, HFP ####[facility] (DEFAULT)[address] [place] [address] Protein [Mass/Vol] 6.8 g/dL Normal 6.4-8.3 [facility] Comment on above: Performed By: #### M MERLE CHM7, HFP ####[facility] (DEFAULT)[address] [place] [address] MAGNESIUMon 09-10-2023 Interpretation and review of laboratory results Normal [facility] Magnesium [Mass/Vol] 1.9 mg/dL 1.6 - 2 .6 mg/dL [facility] Magnesium [Mass/Vol] 1.9 mg/dL Normal 1.6-2.6 [facility] Comment on above: Performed By: #### M HELEN BLOOMM7, HFP ####[facility] (DEFAULT)[address] [place] [address] No Panel Informationon 09-10 Interpretation and review of laboratory results Abnormal [facility] TACROLIMUS LEVEL, TROUGH (NC E DRUG LEVEL)Ordered By: Jimy Castillo on 09-10-2023 Interpretation and review of laboratory results Normal [facility] Tacrolimus (Bld) [Mass/Vol] 11.8 ng/mL [facility] TACROLIMUS LEVEL, TROUGH (NC E DRUG LEVEL)on 09-10-2023 Tacrolimus, Trough 11.8 ng/mL Normal Bone Susana ow Transplant: 4.0-12.0, Therapeutic: 5.0-15.0 [facility] Comment on above: Order Comment: Pleas e draw at specified interval PRIOR to dose. Do not hold dose to wait for level. Specimens batched twice per day, (M-) and once per day weekendsMethod performed is a chemiluminescent microparticle immunoasssay on the [employer] i2000.The range is based on experience at [facility] and users should be aware that target concentrations vary widely depending on concomitant therapy, time post-transplant, and desired degree of immunosuppression. Performed By: #### T ACRO ####[facility] (DEFAULT)[address] [place] [address] CHEM 7 (LYTES,BUN,CREA,GLUC) on 09-09-2023 Anion gap [Moles/Vol] 14 mmol/L 7 - 17 mmol/L [facility] Chloride [Moles/Vol] 113 mmol/L High 98 - 10 8 mmol/L [facility] CO2 [Moles/Vol] 18 mmol/L Low 21 - 31 mmol/L [facility] Creatinine [Mass/Vol] 1.03 mg/dL 0.70 - 1.30 mg/dL [facility] eGFR, CKD-EPI, Male 87 - PINF [facility] Glucose [Mass/Vol] 106 mg/dL High 70 - 99 mg/dL [facility] Interpretation and review of laboratory results Abnormal [facility] Osmolality Calc [Osmolality] 294 [facility] Potassium [Moles/Vol] 4.0 mmol/L 3.5 - 5.0 mmol/L [facility] Sodium [Moles/Vol] 141 mmol/L 135 - 145 mmol/L [facility] Urea nitrogen [Mass/Vol] 10 mg/dL 7 - 25 mg/dL [facility] Urea nitrogen/Creatinine [Mass ratio] 10 mg/mg [facility] Anion gap [Moles/Vol] 14 mmol/L Normal 7-17 [facility] Comment on above: Performed By: #### JO ANN RAMÍREZ CHM7 ####[facility] (DEFAULT)[address] [place] [address] Chloride [Moles/Vol] 113 mmol/L High 98-108 [facility] Comment on above: Performed By: #### JO ANN RAMÍREZ CHM7 ####[facility] (DEFAULT)[address] [place] [address] CO2 [Moles/Vol] 18 mmol/L Low 21-31 [facility] Comment on above: Performed By: #### JO ANN RAMÍREZ CHM7 ####[facility] (DEFAULT)[address] [facility] [place] [address] Creatinine [Mass/Vol] 1.03 mg/dL Normal 0.70-1.30 [facility] Comment on above: Performed By: #### JO ANN RAMÍREZ CHRod7 ####[facility] (DEFAULT)[address] [place] [address] GFR/1.73 sq M.predicted among non-blacks MDRD (S/P/Bld) [Vol rate/Area] 87 mL/min/{1.73_m2} Normal >=60 [facility] Comment on above: Result Comment: Repo rted eGFR is based on the CKD-EPI 2020 equation using creatinine, age, and sex. Performed By: #### JO ANN RAMÍREZ CHM7 ####[facility] (DEFAULT)[address] [place] [address] Glucose [Mass/Vol] 106 mg/dL High 70-99 [facility] Comment on above: Performed By: #### JO ANN RAMÍREZ, CHM7 ####[facility] (DEFAULT)[address] [place] [address] Osmolality [Osmolality] 294 mosm/kg Normal 278-305 [facility] Comment on above: Performed By: #### JO ANN RAMÍREZ, CHM7 ####[facility] (DEFAULT)[address] [place] [address] Potassium [Moles/Vol] 4.0 mmol/L Normal 3.5-5.0 [facility] Comment on above: Performed By: #### JO ANN RAMÍREZ, CHM7 ####[facility] (DEFAULT)[address] [place] [address] Sodium [Moles/Vol] 141 mmol/L Normal 135-145 [facility] Comment on above: Performed By: #### JO ANN RAMÍREZ, CHM7 ####[facility] (DEFAULT)[address] [place] [address] Urea nitrogen [Mass/Vol] 10 mg/dL Normal 7-25 [facility] Comment on above: Performed By: #### JO ANN RAMÍREZ, CHM7 ####[facility] (DEFAULT)[address] [place] [address] Urea nitrogen/Creatinine [Mass ratio] 10 mg/mg Normal [facility] Comment on above: Performed By: #### JO ANN RAMÍREZ, CHM7 ####[facility] (DEFAULT)[address] [place] [address] MAGNESIUMon 09-09-2023 Magnesium [Mass/Vol] 1.6 mg/dL 1.6 - 2 .6 mg/dL [facility] Magnesium [Mass/Vol] 1.6 mg/dL Normal 1.6-2.6 [facility] Comment on above: Performed By: #### M JO ANN BLOOM CHM7 ####[facility] (DEFAULT)[address] [place] [address] No Panel Informationon 09-09 Interpretation and review of laboratory results Normal [facility] PHOSPHATE, INORGANICon 09-09 Phosphate [Mass/Vol] 3.8 mg/dL 2.2 - 4 .6 mg/dL [facility] Phosphorous 3.8 mg/dL Normal 2.2-4.6 [facility] Comment on above: Performed By: #### M JO ANN BLOOM CHM7 ####[facility] (DEFAULT)[address] [place] [address] TACROLIMUS LEVEL, TROUGH (NC E DRUG LEVEL)on 09-09-2023 Interpretation and review of laboratory results Normal [facility] Tacrolimus (Bld) [Mass/Vol] 9.2 ng/mL [facility] Tacrolimus, Trough 9.2 ng/mL Normal Bone Susana ow Transplant: 4.0-12.0, Therapeutic: 5.0-15.0 [facility] Comment on above: Order Comment: Pleas e draw at specified interval PRIOR to dose. Do not hold dose to wait for level. Specimens batched twice per day, (M-) and once per day weekendsMethod performed is a chemiluminescent microparticle immunoasssay on the [employer] i2000.The range is based on experience at [facility] and users should be aware that target concentrations vary widely depending on concomitant therapy, time post-transplant, and desired degree of immunosuppression. Performed By: #### T ACRO ####[facility] (DEFAULT)[address] [place] [address] CBC,PLATELETSon 09-08-2023 Erythrocyte distribution width (RBC) [Ratio] 13.6 % 10.9 - 14.3 % [facility] Hematocrit (Bld) [Volume fraction] 36.1 % Low 39.6 - 48.8 % [facility] Hemoglobin (Bld) [Mass/Vol] 11.6 g/dL Low 13.4 - 16.8 g/dL [facility] Interpretation and review of laboratory results Abnormal [facility] MCH (RBC) [Entitic mass] 27.4 pg 26.1 - 33.3 pg [facility] MCHC (RBC) [Mass/Vol] 32.1 g/dL 31.9 - 36.5 g/dL [facility] MCV (RBC) [Entitic vol] 85.1 fL 79.0 - 94.5 fL [facility] Platelet mean volume (Bld) [Entitic vol] 9.5 fL 8.7 - 12.3 fL [facility] Platelets (Bld) [#/Vol] 182 10*3/uL 146 - 337 K/uL [facility] RBC (Bld) [#/Vol] 4.24 10*6/uL Low [facility] WBC (Bld) [#/Vol] 4.59 10*3/uL 3.73 - 10. 10 K/uL [facility] Hematocrit (Bld) [Volume fraction] 36.1 % Low 39.6-48.8 [facility] Comment on above: Performed By: #### H [facility] ####[facility] (DEFAULT)[address] [place] [address] Hemoglobin (Bld) [Mass/Vol] 11.6 g/dL Low 13.4-16.8 [facility] Comment on above: Performed By: #### H [facility] ####[facility] (DEFAULT)[address] [place] [address] MCV (RBC) [Entitic vol] 85.1 fL Normal 79.0-94.5 [facility] Comment on above: Performed By: #### H [facility] ####[facility] (DEFAULT)[address] [place] [address] Mean Cell Hgb 27.4 pg Normal 26.1-33.3 [facility] Comment on above: Performed By: #### H EMOGC ####[facility] (DEFAULT)[address] [place] [address] Mean Cell Hgb Conc 32.1 g/dL Normal 31.9-36.5 [facility] Comment on above: Performed By: #### H EMOGC ####[facility] (DEFAULT)[address] [facility] [place] [address] Platelet mean volume (Bld) [Entitic vol] 9.5 fL Normal 8.7-12.3 [facility] Comment on above: Performed By: #### H EMOGC ####[facility] (DEFAULT)[address] [facility] [place] [address] Platelets (Bld) [#/Vol] 182 10*3/uL Normal 146-337 [facility] Comment on above: Performed By: #### H EMO ####[facility] (DEFAULT)[address] [facility] [place] [address] RBC (Bld) [#/Vol] 4.24 10*6/uL Low 4.38-5.83 [facility] Comment on above: Performed By: #### H EMOGC ####[facility] (DEFAULT)[address] [facility] [place] [address] RBC Distribution 13.6 % Normal 10.9-14.3 [facility] Comment on above: Performed By: #### H EMOGC ####[facility] (DEFAULT)[address] [facility] [place] [address] WBC (Bld) [#/Vol] 4.59 10*3/uL Normal 3.73-10.10 [facility] Comment on above: Performed By: #### H EMOGC ####[facility] (DEFAULT)[address] [facility] [place] [address] CHEM 7 (LYTES,BUN,CREA,GLUC) on 09-08-2023 Anion gap [Moles/Vol] 12 mmol/L 7 - 17 mmol/L [facility] Chloride [Moles/Vol] 113 mmol/L High 98 - 10 8 mmol/L [facility] CO2 [Moles/Vol] 21 mmol/L 21 - 31 mmol/L [facility] Creatinine [Mass/Vol] 1.14 mg/dL 0.70 - 1.30 mg/dL [facility] eGFR, CKD-EPI, Male 77 - [facility]F [facility] Glucose [Mass/Vol] 107 mg/dL High 70 - 99 mg/dL [facility] Osmolality Calc [Osmolality] 296 [facility] Potassium [Moles/Vol] 3.9 mmol/L 3.5 - 5.0 mmol/L [facility] Sodium [Moles/Vol] 142 mmol/L 135 - 145 mmol/L [facility] Urea nitrogen [Mass/Vol] 11 mg/dL 7 - 25 mg/dL [facility] Urea nitrogen/Creatinine [Mass ratio] 10 mg/mg [facility] Anion gap [Moles/Vol] 12 mmol/L Normal 7-17 [facility] Comment on above: Performed By: #### JO ANN RAMÍREZ, HELENM7, HFP ####[facility] (DEFAULT)[address] [place] [address] Chloride [Moles/Vol] 113 mmol/L High 98-108 [facility] Comment on above: Performed By: #### JO ANN RAMÍREZ, CHM7, HFP ####[facility] (DEFAULT)[address] [place] [address] CO2 [Moles/Vol] 21 mmol/L Normal 21-31 [facility] Comment on above: Performed By: #### JO ANN RAMÍREZ, CHM7, HFP ####[facility] (DEFAULT)[address] [place] [address] Creatinine [Mass/Vol] 1.14 mg/dL Normal 0.70-1.30 [facility] Comment on above: Performed By: #### JO ANN RAMÍREZ CHM7, HFP ####[facility] (DEFAULT)[address] [place] [address] GFR/1.73 sq M.predicted among non-blacks MDRD (S/P/Bld) [Vol rate/Area] 77 mL/min/{1.73_m2} Normal >=60 [facility] Comment on above: Result Comment: Repo rted eGFR is based on the CKD-EPI 2020 equation using creatinine, age, and sex. Performed By: #### JO ANN RAMÍREZ, HELENM7, HFP ####[facility] (DEFAULT)[address] [place] [address] Glucose [Mass/Vol] 107 mg/dL High 70-99 [facility] Comment on above: Performed By: #### JO ANN RAMÍREZ, CHM7, HFP ####[facility] (DEFAULT)[address] [place] [address] Osmolality [Osmolality] 296 mosm/kg Normal 278-305 [facility] Comment on above: Performed By: #### JO ANN RAMÍREZ, CHM7, HFP ####[facility] (DEFAULT)[address] [place] [address] Potassium [Moles/Vol] 3.9 mmol/L Normal 3.5-5.0 [facility] Comment on above: Performed By: #### JO ANN RAMÍREZ, CHM7, HFP ####[facility] (DEFAULT)[address] [place] [address] Sodium [Moles/Vol] 142 mmol/L Normal 135-145 [facility] Comment on above: Performed By: #### CASTRO RAMÍREZB, CHM7, HFP ####[facility] (DEFAULT)[address] [place] [address] Urea nitrogen [Mass/Vol] 11 mg/dL Normal 7-25 [facility] Comment on above: Performed By: #### M MERLE, IPB, CHM7, HFP ####[facility] (DEFAULT)[address] [place] [address] Urea nitrogen/Creatinine [Mass ratio] 10 mg/mg Normal [facility] Comment on above: Performed By: #### M MERLE, IPB, CHM7, HFP ####[facility] (DEFAULT)[address] [place] [address] HEPATIC FUNCTION PANELon Albumin [Mass/Vol] 2.9 g/dL Low 3.5 - 5.0 g/dL [facility] ALP [Catalytic activity/Vol] 133 U/L High 32 - 126 U/L [facility] ALT [Catalytic activity/Vol] 23 U/L 10 - 52 U/L [facility] AST [Catalytic activity/Vol] 23 U/L 10 - 39 U/L [facility] Bilirubin [Mass/Vol] 0.8 mg/dL NINF - 1.5 mg/dL [facility] Bilirubin.direct [Mass/Vol] 0.2 mg/dL [facility] - 0.3 mg/dL [facility] Protein [Mass/Vol] 5.9 g/dL Low 6.4 - 8.3 g/dL [facility] Albumin [Mass/Vol] 2.9 g/dL Low 3.5-5.0 [facility] Comment on above: Performed By: #### M MERLE, IPB, CHM7, HFP ####[facility] (DEFAULT)[address] [place] [address] ALP [Catalytic activity/Vol] 133 U/L High 32-126 [facility] Comment on above: Performed By: #### M GO, IPB, CHM7, HFP ####[facility] (DEFAULT)[address] [place] [address] ALT [Catalytic activity/Vol] 23 U/L Normal 10-52 [facility] Comment on above: Performed By: #### M GO, IPB, CHM7, HFP ####[facility] (DEFAULT)[address] [place] [address] AST [Catalytic activity/Vol] 23 U/L Normal 10-39 [facility] Comment on above: Performed By: #### M GO, IPB, CHM7, HFP ####[facility] (DEFAULT)[address] [place] [address] Bilirubin [Mass/Vol] 0.8 mg/dL Normal <1.5 [facility] Comment on above: Performed By: #### M GO, IPB, CHM7, HFP ####[facility] (DEFAULT)[address] [place] [address] Bilirubin.indirect [Mass/Vol] 0.2 mg/dL Normal <0.3 [facility] Comment on above: Performed By: #### M GO, IPB, CHM7, HFP ####[facility] (DEFAULT)[address] [facility] [place] [address] Protein [Mass/Vol] 5.9 g/dL Low 6.4-8.3 [facility] Comment on above: Performed By: #### M GO, IPB, CHM7, HFP ####[facility] (DEFAULT)[address] [facility] [place] [address] MAGNESIUMon 09-08-2023 Interpretation and review of laboratory results Normal [facility] Magnesium [Mass/Vol] 1.8 mg/dL 1.6 - 2 .6 mg/dL [facility] Magnesium [Mass/Vol] 1.8 mg/dL Normal 1.6-2.6 [facility] Comment on above: Performed By: #### M GO, IPB, CHM7, HFP ####[facility] (DEFAULT)[address] [place] [address] No Panel Informationon 09-08 Interpretation and review of laboratory results Abnormal [facility] PHOSPHATE, INORGANICon 09-08 Interpretation and review of laboratory results Normal [facility] Phosphate [Mass/Vol] 4.1 mg/dL 2.2 - 4 .6 mg/dL [facility] Phosphorous 4.1 mg/dL Normal 2.2-4.6 [facility] Comment on above: Performed By: #### M GO, IPB, CHM7, HFP ####[facility] (DEFAULT)[address] [place] [address] TACROLIMUS LEVEL, TROUGH (NC E DRUG LEVEL)on 09-08-2023 Interpretation and review of laboratory results Normal [facility] Tacrolimus (Bld) [Mass/Vol] 8.5 ng/mL [facility] Tacrolimus, Trough 8.5 ng/mL Normal Bone Susana ow Transplant: 4.0-12.0, Therapeutic: 5.0-15.0 [facility] Comment on above: Order Comment: Pleas e draw at specified interval PRIOR to dose. Do not hold dose to wait for level. Specimens batched twice per day, (M-) and once per day weekendsMethod performed is a chemiluminescent microparticle immunoasssay on the [employer] i2000.The range is based on experience at [facility] and users should be aware that target concentrations vary widely depending on concomitant therapy, time post-transplant, and desired degree of immunosuppression. Performed By: #### T ACRO ####[facility] (DEFAULT)[address] [place] [id number] CBC,PLATELETSon 09-07-2023 Erythrocyte distribution width (RBC) [Ratio] 13.5 % 10.9 - 14.3 % [facility] Hematocrit (Bld) [Volume fraction] 37.1 % Low 39.6 - 48.8 % [facility] Hemoglobin (Bld) [Mass/Vol] 11.9 g/dL Low 13.4 - 16.8 g/dL [facility] Interpretation and review of laboratory results Abnormal [facility] MCH (RBC) [Entitic mass] 27.7 pg 26.1 - 33.3 pg [facility] MCHC (RBC) [Mass/Vol] 32.1 g/dL 31.9 - 36.5 g/dL [facility] MCV (RBC) [Entitic vol] 86.5 fL 79.0 - 94.5 fL [facility] Platelet mean volume (Bld) [Entitic vol] 9.6 fL 8.7 - 12.3 fL [facility] Platelets (Bld) [#/Vol] 176 10*3/uL 146 - 337 K/uL [facility] RBC (Bld) [#/Vol] 4.29 10*6/uL Low [facility] WBC (Bld) [#/Vol] 4.10 10*3/uL 3.73 - 10. 10 K/uL [facility] Hematocrit (Bld) [Volume fraction] 37.1 % Low 39.6-48.8 [facility] Comment on above: Performed By: #### H [facility] ####[facility] (DEFAULT)[address] [place] [address] Hemoglobin (Bld) [Mass/Vol] 11.9 g/dL Low 13.4-16.8 [facility] Comment on above: Performed By: #### H EMO ####[facility] (DEFAULT)[address] [place] [address] MCV (RBC) [Entitic vol] 86.5 fL Normal 79.0-94.5 [facility] Comment on above: Performed By: #### H EMO ####[facility] (DEFAULT)[address] [place] [address] Mean Cell Hgb 27.7 pg Normal 26.1-33.3 [facility] Comment on above: Performed By: #### H EMO ####[facility] (DEFAULT)[address] [place] [address] Mean Cell Hgb Conc 32.1 g/dL Normal 31.9-36.5 [facility] Comment on above: Performed By: #### H EMO ####[facility] (DEFAULT)[address] [facility] [place] [address] Platelet mean volume (Bld) [Entitic vol] 9.6 fL Normal 8.7-12.3 [facility] Comment on above: Performed By: #### H EMO ####[facility] (DEFAULT)[address] [place] [address] Platelets (Bld) [#/Vol] 176 10*3/uL Normal 146-337 [facility] Comment on above: Performed By: #### H EMO ####[facility] (DEFAULT)[address] [place] [address] RBC (Bld) [#/Vol] 4.29 10*6/uL Low 4.38-5.83 [facility] Comment on above: Performed By: #### H EMO ####[facility] (DEFAULT)[address] [place] [address] RBC Distribution 13.5 % Normal 10.9-14.3 [facility] Comment on above: Performed By: #### H EMOGC ####[facility] (DEFAULT)[address] [place] [address] WBC (Bld) [#/Vol] 4.10 10*3/uL Normal 3.73-10.10 [facility] Comment on above: Performed By: #### H EMO ####[facility] (DEFAULT)[address] [place] [address] CHEM 7 (LYTES,BUN,CREA,GLUC) on 09-07-2023 Anion gap [Moles/Vol] 13 mmol/L 7 - 17 mmol/L [facility] Chloride [Moles/Vol] 113 mmol/L High 98 - 10 8 mmol/L [facility] CO2 [Moles/Vol] 19 mmol/L Low 21 - 31 mmol/L [facility] Creatinine [Mass/Vol] 1.22 mg/dL 0.70 - 1.30 mg/dL [facility] eGFR, CKD-EPI, Male 71 - PINF [facility] Glucose [Mass/Vol] 107 mg/dL High 70 - 99 mg/dL [facility] Osmolality Calc [Osmolality] 295 [facility] Potassium [Moles/Vol] 3.9 mmol/L 3.5 - 5.0 mmol/L [facility] Sodium [Moles/Vol] 141 mmol/L 135 - 145 mmol/L [facility] Urea nitrogen [Mass/Vol] 13 mg/dL 7 - 25 mg/dL [facility] Urea nitrogen/Creatinine [Mass ratio] 11 mg/mg [facility] Anion gap [Moles/Vol] 13 mmol/L Normal 7-17 [facility] Comment on above: Performed By: #### C HM7, IPB, MGO, HFP ####[facility] (DEFAULT)[address] [place] [address] Chloride [Moles/Vol] 113 mmol/L High 98-108 [facility] Comment on above: Performed By: #### C HM7, IPB, MGO, HFP ####[facility] (DEFAULT)[address] [place] [address] CO2 [Moles/Vol] 19 mmol/L Low 21-31 [facility] Comment on above: Performed By: #### C HM7, IPB, MGO, HFP ####[facility] (DEFAULT)[address] [place] [address] Creatinine [Mass/Vol] 1.22 mg/dL Normal 0.70-1.30 [facility] Comment on above: Performed By: #### C HM7, IPB, MGO, HFP ####[facility] (DEFAULT)[address] [place] [address] GFR/1.73 sq M.predicted among non-blacks MDRD (S/P/Bld) [Vol rate/Area] 71 mL/min/{1.73_m2} Normal >=60 [facility] Comment on above: Result Comment: Repo rted eGFR is based on the CKD-EPI 2020 equation using creatinine, age, and sex. Performed By: #### C HM7, IPB, MGO, HFP ####U [facility] (DEFAULT)[address] [place] [address] Glucose [Mass/Vol] 107 mg/dL High 70-99 [facility] Comment on above: Performed By: #### C HM7, IPB, MGO, HFP ####U [facility] (DEFAULT)[address] [place] [address] Osmolality [Osmolality] 295 mosm/kg Normal 278-305 [facility] Comment on above: Performed By: #### C HM7, IPB, MGO, HFP ####[facility] (DEFAULT)[address] [place] [address] Potassium [Moles/Vol] 3.9 mmol/L Normal 3.5-5.0 [facility] Comment on above: Performed By: #### C HM7, IPB, MGO, HFP ####[facility] (DEFAULT)[address] [place] [address] Sodium [Moles/Vol] 141 mmol/L Normal 135-145 [facility] Comment on above: Performed By: #### C HM7, IPB, MGO, HFP ####[facility] (DEFAULT)[address] [place] [address] Urea nitrogen [Mass/Vol] 13 mg/dL Normal 7-25 [facility] Comment on above: Performed By: #### C HM7, IPB, MGO, HFP ####[facility] (DEFAULT)[address] [place] [address] Urea nitrogen/Creatinine [Mass ratio] 11 mg/mg Normal [facility] Comment on above: Performed By: #### C HM7, IPB, MGO, HFP ####[facility] (DEFAULT)[address] [place] [address] HEPATIC FUNCTION PANELon Albumin [Mass/Vol] 2.9 g/dL Low 3.5 - 5.0 g/dL [facility] ALP [Catalytic activity/Vol] 111 U/L 32 - 126 U/L [facility] ALT [Catalytic activity/Vol] 18 U/L 10 - 52 U/L [facility] AST [Catalytic activity/Vol] 23 U/L 10 - 39 U/L [facility] Bilirubin [Mass/Vol] 0.8 mg/dL NINF - 1.5 mg/dL [facility] Bilirubin.direct [Mass/Vol] 0.3 mg/dL High NINF - 0.3 mg/dL [facility] Protein [Mass/Vol] 6.0 g/dL Low 6.4 - 8.3 g/dL [facility] Albumin [Mass/Vol] 2.9 g/dL Low 3.5-5.0 [facility] Comment on above: Performed By: #### C HM7, IPB, MGO, HFP ####[facility] (DEFAULT)[address] [place] [address] ALP [Catalytic activity/Vol] 111 U/L Normal 32-126 [facility] Comment on above: Performed By: #### C HM7, IPB, MGO, HFP ####U [facility] (DEFAULT)[address] [place] [address] ALT [Catalytic activity/Vol] 18 U/L Normal 10-52 [facility] Comment on above: Performed By: #### C HM7, IPB, MGO, HFP ####U [facility] (DEFAULT)[address] [place] [address] AST [Catalytic activity/Vol] 23 U/L Normal 10-39 [facility] Comment on above: Performed By: #### C HM7, IPB, MGO, HFP ####[facility] (DEFAULT)[address] [place] [address] Bilirubin [Mass/Vol] 0.8 mg/dL Normal <1.5 [facility] Comment on above: Performed By: #### C HM7, IPB, MGO, HFP ####[facility] (DEFAULT)[address] [facility] [place] [address] Bilirubin.indirect [Mass/Vol] 0.3 mg/dL High <0.3 [facility] Comment on above: Performed By: #### C HM7, IPB, MGO, HFP ####[facility] (DEFAULT)[address] [place] [address] Protein [Mass/Vol] 6.0 g/dL Low 6.4-8.3 [facility] Comment on above: Performed By: #### C HM7, IPB, MGO, HFP ####[facility] (DEFAULT)[address] [place] [address] MAGNESIUMon 09-07-2023 Interpretation and review of laboratory results Normal [facility] Magnesium [Mass/Vol] 1.7 mg/dL 1.6 - 2 .6 mg/dL [facility] Magnesium [Mass/Vol] 1.7 mg/dL Normal 1.6-2.6 [facility] Comment on above: Performed By: #### C HM7, IPB, MGO, HFP ####[facility] (DEFAULT)[address] [place] [address] No Panel Informationon 09-07 Interpretation and review of laboratory results Abnormal [facility] PHOSPHATE, INORGANICon 09-07 Interpretation and review of laboratory results Normal [facility] Phosphate [Mass/Vol] 4.4 mg/dL 2.2 - 4 .6 mg/dL [facility] Phosphorous 4.4 mg/dL Normal 2.2-4.6 [facility] Comment on above: Performed By: #### C HM7, IPB, MGO, HFP ####[facility] (DEFAULT)[address] [place] [address] TACROLIMUS LEVEL, TROUGH (NC E DRUG LEVEL)Ordered By: Elizabeth Maldonado on 09-07-2023 Interpretation and review of laboratory results Normal [facility] Tacrolimus (Bld) [Mass/Vol] 7.8 ng/mL [facility] TACROLIMUS LEVEL, TROUGH (NC E DRUG LEVEL)on 09-07-2023 Tacrolimus, Trough 7.8 ng/mL Normal Bone Susana ow Transplant: 4.0-12.0, Therapeutic: 5.0-15.0 [facility] Comment on above: Order Comment: Pleas e draw at specified interval PRIOR to dose. Do not hold dose to wait for level. Specimens batched twice per day, (M-F) and once per day weekendsMethod performed is a chemiluminescent microparticle immunoasssay on the [employer] i2000.The range is based on experience at [facility] and users should be aware that target concentrations vary widely depending on concomitant therapy, time post-transplant, and desired degree of immunosuppression. Performed By: #### T ACRO ####[facility] (DEFAULT)[address] [place] [address] CBC,PLATELETSon 09-06-2023 Erythrocyte distribution width (RBC) [Ratio] 13.4 % 10.9 - 14.3 % [facility] Hematocrit (Bld) [Volume fraction] 38.4 % Low 39.6 - 48.8 % [facility] Hemoglobin (Bld) [Mass/Vol] 11.9 g/dL Low 13.4 - 16.8 g/dL [facility] Interpretation and review of laboratory results Abnormal [facility] MCH (RBC) [Entitic mass] 26.6 pg 26.1 - 33.3 pg [facility] MCHC (RBC) [Mass/Vol] 31.0 g/dL Low 31.9 - 36.5 g/dL [facility] MCV (RBC) [Entitic vol] 85.9 fL 79.0 - 94.5 fL [facility] Platelet mean volume (Bld) [Entitic vol] 9.7 fL 8.7 - 12.3 fL [facility] Platelets (Bld) [#/Vol] 181 10*3/uL 146 - 337 K/uL [facility] RBC (Bld) [#/Vol] 4.47 10*6/uL [facility] WBC (Bld) [#/Vol] 4.41 10*3/uL 3.73 - 10. 10 K/uL [facility] Hematocrit (Bld) [Volume fraction] 38.4 % Low 39.6-48.8 [facility] Comment on above: Performed By: #### H [facility] ####[facility] (DEFAULT)[address] [place] [address] Hemoglobin (Bld) [Mass/Vol] 11.9 g/dL Low 13.4-16.8 [facility] Comment on above: Performed By: #### H EMO ####[facility] (DEFAULT)[address] [place] [address] MCV (RBC) [Entitic vol] 85.9 fL Normal 79.0-94.5 [facility] Comment on above: Performed By: #### H EMO ####[facility] (DEFAULT)[address] [place] [address] Mean Cell Hgb 26.6 pg Normal 26.1-33.3 [facility] Comment on above: Performed By: #### H EMOGC ####[facility] (DEFAULT)[address] [place] [address] Mean Cell Hgb Conc 31.0 g/dL Low 31.9-36.5 [facility] Comment on above: Performed By: #### H EMO ####[facility] (DEFAULT)[address] [place] [address] Platelet mean volume (Bld) [Entitic vol] 9.7 fL Normal 8.7-12.3 [facility] Comment on above: Performed By: #### H EMO ####[facility] (DEFAULT)[address] [place] [address] Platelets (Bld) [#/Vol] 181 10*3/uL Normal 146-337 [facility] Comment on above: Performed By: #### H EMO ####[facility] (DEFAULT)[address] [place] [address] RBC (Bld) [#/Vol] 4.47 10*6/uL Normal 4.38-5.83 [facility] Comment on above: Performed By: #### H EMO ####[facility] (DEFAULT)[address] [place] [address] RBC Distribution 13.4 % Normal 10.9-14.3 [facility] Comment on above: Performed By: #### H EMO ####[facility] (DEFAULT)[address] [place] [address] WBC (Bld) [#/Vol] 4.41 10*3/uL Normal 3.73-10.10 [facility] Comment on above: Performed By: #### H EMO ####[facility] (DEFAULT)[address] [place] [address] CHEM 7 (LYTES,BUN,CREA,GLUC) on 09-06-2023 Anion gap [Moles/Vol] 14 mmol/L 7 - 17 mmol/L [facility] Chloride [Moles/Vol] 109 mmol/L High 98 - 10 8 mmol/L [facility] CO2 [Moles/Vol] 19 mmol/L Low 21 - 31 mmol/L [facility] Creatinine [Mass/Vol] 1.26 mg/dL 0.70 - 1.30 mg/dL [facility] eGFR, CKD-EPI, Male 69 - PINF [facility] Glucose [Mass/Vol] 114 mg/dL High 70 - 99 mg/dL [facility] Osmolality Calc [Osmolality] 291 [facility] Potassium [Moles/Vol] 4.1 mmol/L 3.5 - 5.0 mmol/L [facility] Sodium [Moles/Vol] 138 mmol/L 135 - 145 mmol/L [facility] Urea nitrogen [Mass/Vol] 16 mg/dL 7 - 25 mg/dL [facility] Urea nitrogen/Creatinine [Mass ratio] 13 mg/mg [facility] Anion gap [Moles/Vol] 14 mmol/L Normal 7-17 [facility] Comment on above: Performed By: #### NATHANIEL RAMÍREZ, HFP ####[facility] (DEFAULT)[address] [place] [address] Chloride [Moles/Vol] 109 mmol/L High 98-108 [facility] Comment on above: Performed By: #### NATHANIEL RAMÍREZ, HFP ####[facility] (DEFAULT)[address] [place] [address] CO2 [Moles/Vol] 19 mmol/L Low 21-31 [facility] Comment on above: Performed By: #### NATHANIEL RAMÍREZ, HFP ####[facility] (DEFAULT)[address] [place] [address] Creatinine [Mass/Vol] 1.26 mg/dL Normal 0.70-1.30 [facility] Comment on above: Performed By: #### NATHANIEL RAMÍREZ, HFP ####[facility] (DEFAULT)[address] [place] [address] GFR/1.73 sq M.predicted among non-blacks MDRD (S/P/Bld) [Vol rate/Area] 69 mL/min/{1.73_m2} Normal >=60 [facility] Comment on above: Result Comment: Repo rted eGFR is based on the CKD-EPI 2020 equation using creatinine, age, and sex. Performed By: #### NATHANIEL RAMÍREZ, HFP ####[facility] (DEFAULT)[address] [place] [address] Glucose [Mass/Vol] 114 mg/dL High 70-99 [facility] Comment on above: Performed By: #### NATHANIEL RAMÍREZ, HFP ####[facility] (DEFAULT)[address] [place] [address] Osmolality [Osmolality] 291 mosm/kg Normal 278-305 [facility] Comment on above: Performed By: #### NATHANIEL RAMÍREZ, HFP ####[facility] (DEFAULT)[address] [place] [address] Potassium [Moles/Vol] 4.1 mmol/L Normal 3.5-5.0 [facility] Comment on above: Performed By: #### NATHANIEL RAMÍREZ, HFP ####[facility] (DEFAULT)[address] [place] [address] Sodium [Moles/Vol] 138 mmol/L Normal 135-145 [facility] Comment on above: Performed By: #### NATHANIEL RAMÍREZ, HFP ####[facility] (DEFAULT)[address] [place] [address] Urea nitrogen [Mass/Vol] 16 mg/dL Normal 7-25 [facility] Comment on above: Performed By: #### NATHANIEL RAMÍREZ, HFP ####[facility] (DEFAULT)[address] [place] [address] Urea nitrogen/Creatinine [Mass ratio] 13 mg/mg Normal [facility] Comment on above: Performed By: #### NATHANIEL RAMÍREZ, HFP ####[facility] (DEFAULT)[address] [place] [address] HEPATIC FUNCTION PANELon Albumin [Mass/Vol] 3.0 g/dL Low 3.5 - 5.0 g/dL [facility] ALP [Catalytic activity/Vol] 115 U/L 32 - 126 U/L [facility] ALT [Catalytic activity/Vol] 25 U/L 10 - 52 U/L [facility] AST [Catalytic activity/Vol] 31 U/L 10 - 39 U/L [facility] Bilirubin [Mass/Vol] 1.0 mg/dL NINF - 1.5 mg/dL [facility] Bilirubin.direct [Mass/Vol] 0.3 mg/dL High NINF - 0.3 mg/dL [facility] Protein [Mass/Vol] 6.3 g/dL Low 6.4 - 8.3 g/dL [facility] Albumin [Mass/Vol] 3.0 g/dL Low 3.5-5.0 [facility] Comment on above: Performed By: #### NATHANIEL RAMÍREZ, HFP ####[facility] (DEFAULT)[address] [place] [address] ALP [Catalytic activity/Vol] 115 U/L Normal 32-126 [facility] Comment on above: Performed By: #### NATHANIEL RAMÍREZ, HFP ####[facility] (DEFAULT)[address] [facility] [place] [address] ALT [Catalytic activity/Vol] 25 U/L Normal 10-52 [facility] Comment on above: Performed By: #### NATHANIEL RAMÍREZ, HFP ####[facility] (DEFAULT)[address] [place] [address] AST [Catalytic activity/Vol] 31 U/L Normal 10-39 [facility] Comment on above: Performed By: #### NATHANIEL RAMÍREZ, HFP ####[facility] (DEFAULT)[address] [place] [address] Bilirubin [Mass/Vol] 1.0 mg/dL Normal <1.5 [facility] Comment on above: Performed By: #### NATHANIEL RAMÍREZ, HFP ####[facility] (DEFAULT)[address] [place] [address] Bilirubin.indirect [Mass/Vol] 0.3 mg/dL High <0.3 [facility] Comment on above: Performed By: #### NATHANIEL RAMÍREZ, HFP ####[facility] (DEFAULT)[address] [place] [address] Protein [Mass/Vol] 6.3 g/dL Low 6.4-8.3 [facility] Comment on above: Performed By: #### NATHANIEL RAMÍREZ, HFP ####[facility] (DEFAULT)[address] [place] [address] MAGNESIUMon 09-06-2023 Interpretation and review of laboratory results Normal [facility] Magnesium [Mass/Vol] 2.0 mg/dL 1.6 - 2 .6 mg/dL [facility] Magnesium [Mass/Vol] 2.0 mg/dL Normal 1.6-2.6 [facility] Comment on above: Performed By: #### NATHANIEL RAMÍREZ, HFP ####[facility] (DEFAULT)[address] [place] [address] No Panel Informationon 09-06 Interpretation and review of laboratory results Abnormal [facility] TACROLIMUS LEVEL, TROUGH (NC E DRUG LEVEL)on 09-06-2023 Interpretation and review of laboratory results Normal [facility] Tacrolimus (Bld) [Mass/Vol] 6.7 ng/mL [facility] Tacrolimus, Trough 6.7 ng/mL Normal Bone Susana ow Transplant: 4.0-12.0, Therapeutic: 5.0-15.0 [facility] Comment on above: Order Comment: Pleas e draw at specified interval PRIOR to dose. Do not hold dose to wait for level. Specimens batched twice per day, (M-) and once per day weekendsMethod performed is a chemiluminescent microparticle immunoasssay on the [employer] i2000.The range is based on experience at [facility] and users should be aware that target concentrations vary widely depending on concomitant therapy, time post-transplant, and desired degree of immunosuppression. Performed By: #### T ACRO ####[facility] (DEFAULT)[address] [place] [address] CBC,PLATELETSon 09-05-2023 Erythrocyte distribution width (RBC) [Ratio] 13.5 % 10.9 - 14.3 % [facility] Hematocrit (Bld) [Volume fraction] 35.6 % Low 39.6 - 48.8 % [facility] Hemoglobin (Bld) [Mass/Vol] 11.4 g/dL Low 13.4 - 16.8 g/dL [facility] Interpretation and review of laboratory results Abnormal [facility] MCH (RBC) [Entitic mass] 27.5 pg 26.1 - 33.3 pg [facility] MCHC (RBC) [Mass/Vol] 32.0 g/dL 31.9 - 36.5 g/dL [facility] MCV (RBC) [Entitic vol] 86.0 fL 79.0 - 94.5 fL [facility] Platelet mean volume (Bld) [Entitic vol] 10.0 fL 8.7 - 12.3 fL [facility] Platelets (Bld) [#/Vol] 170 10*3/uL 146 - 337 K/uL [facility] RBC (Bld) [#/Vol] 4.14 10*6/uL Low [facility] WBC (Bld) [#/Vol] 4.24 10*3/uL 3.73 - 10. 10 K/uL [facility] Hematocrit (Bld) [Volume fraction] 35.6 % Low 39.6-48.8 [facility] Comment on above: Performed By: #### H EMO ####[facility]DEFAULT[facility] [place] [address] Hemoglobin (Bld) [Mass/Vol] 11.4 g/dL Low 13.4-16.8 [facility] Comment on above: Performed By: #### H EMOGC ####[facility] (DEFAULT)[address] [place] [address] MCV (RBC) [Entitic vol] 86.0 fL Normal 79.0-94.5 [facility] Comment on above: Performed By: #### H EMOGC ####[facility] (DEFAULT)[address] [place] [address] Mean Cell Hgb 27.5 pg Normal 26.1-33.3 [facility] Comment on above: Performed By: #### H EMOGC ####[facility] (DEFAULT)[address] [facility] [place] [address] Mean Cell Hgb Conc 32.0 g/dL Normal 31.9-36.5 [facility] Comment on above: Performed By: #### H EMOGC ####[facility] (DEFAULT)[address] [facility] [place] [address] Platelet mean volume (Bld) [Entitic vol] 10.0 fL Normal 8.7-12.3 [facility] Comment on above: Performed By: #### H EMOGC ####[facility] (DEFAULT)[address] [place] [address] Platelets (Bld) [#/Vol] 170 10*3/uL Normal 146-337 [facility] Comment on above: Performed By: #### H EMOGC ####[facility] (DEFAULT)[address] [facility] [place] [address] RBC (Bld) [#/Vol] 4.14 10*6/uL Low 4.38-5.83 [facility] Comment on above: Performed By: #### H EMOGC ####[facility] (DEFAULT)[address] [facility] [place] [address] RBC Distribution 13.5 % Normal 10.9-14.3 [facility] Comment on above: Performed By: #### H [facility] ####[facility] (DEFAULT)[address] [place] [address] WBC (Bld) [#/Vol] 4.24 10*3/uL Normal 3.73-10.10 [facility] Comment on above: Performed By: #### H [facility] ####[facility] (DEFAULT)[address] [place] [address] CHEM 7 (LYTES,BUN,CREA,GLUC) on 09-05-2023 Anion gap [Moles/Vol] 12 mmol/L 7 - 17 mmol/L [facility] Chloride [Moles/Vol] 107 mmol/L 98 - 10 8 mmol/L [facility] CO2 [Moles/Vol] 20 mmol/L Low 21 - 31 mmol/L [facility] Creatinine [Mass/Vol] 1.43 mg/dL High 0.70 - 1.30 mg/dL [facility] eGFR, CKD-EPI, Male 60 Low - PINF [facility] Glucose [Mass/Vol] 111 mg/dL High 70 - 99 mg/dL [facility] Osmolality Calc [Osmolality] 286 [facility] Potassium [Moles/Vol] 4.2 mmol/L 3.5 - 5.0 mmol/L [facility] Sodium [Moles/Vol] 135 mmol/L 135 - 145 mmol/L [facility] Urea nitrogen [Mass/Vol] 18 mg/dL 7 - 25 mg/dL [facility] Urea nitrogen/Creatinine [Mass ratio] 13 mg/mg [facility] Anion gap [Moles/Vol] 12 mmol/L Normal 7-17 [facility] Comment on above: Performed By: #### H FP, CHM7, MGO ####[facility] (DEFAULT)[address] [place] [address] Chloride [Moles/Vol] 107 mmol/L Normal 98-108 [facility] Comment on above: Performed By: #### H NATHANIEL MONCADA, MGO ####[facility] (DEFAULT)[address] [facility] [place] [address] CO2 [Moles/Vol] 20 mmol/L Low 21-31 [facility] Comment on above: Performed By: #### H HELEN MONCADAM7, MGO ####[facility] (DEFAULT)[address] [facility] [place] [address] Creatinine [Mass/Vol] 1.43 mg/dL High 0.70-1.30 [facility] Comment on above: Performed By: #### H NATHANIEL MONCADA, MGO ####[facility] (DEFAULT)[address] [place] [address], [place] [address] GFR/1.73 sq M.predicted among non-blacks MDRD (S/P/Bld) [Vol rate/Area] 59 mL/min/{1.73_m2} Low >=60 [facility] Comment on above: Result Comment: Repo rted eGFR is based on the CKD-EPI 2020 equation using creatinine, age, and sex. Performed By: #### H NATHANIEL MONCADA, MGO ####[facility] (DEFAULT)[address] [place] [address] Glucose [Mass/Vol] 111 mg/dL High 70-99 [facility] Comment on above: Performed By: #### H HELEN MONCADAMJessica, MGO ####[facility] (DEFAULT)[address] [place] [address] [place] [address] Osmolality [Osmolality] 286 mosm/kg Normal 278-305 [facility] Comment on above: Performed By: #### H ANTWAN CHM7, MGO ####[facility] (DEFAULT)[address] [place] [address] Potassium [Moles/Vol] 4.2 mmol/L Normal 3.5-5.0 [facility] Comment on above: Performed By: #### H HELEN MONCADAMJessica, MGO ####[facility] (DEFAULT)[address] [place] [address] Sodium [Moles/Vol] 135 mmol/L Normal 135-145 [facility] Comment on above: Performed By: #### H FP, CHM7, MGO ####[facility] (DEFAULT)[address] [place] [address] Urea nitrogen [Mass/Vol] 18 mg/dL Normal 7-25 [facility] Comment on above: Performed By: #### H FP, CHM7, MGO ####[facility] (DEFAULT)[address] [facility] [place] [address] Urea nitrogen/Creatinine [Mass ratio] 13 mg/mg Normal [facility] Comment on above: Performed By: #### H FP, CHM7, MGO ####[facility] (DEFAULT)[address] [place] [address] CONTINUOUS CARDIAC MONITORIN G STRIPon 09-05-2023 [facility] HEPATIC FUNCTION PANELon Albumin [Mass/Vol] 2.8 g/dL Low 3.5 - 5.0 g/dL [facility] ALP [Catalytic activity/Vol] 103 U/L 32 - 126 U/L [facility] ALT [Catalytic activity/Vol] 26 U/L 10 - 52 U/L [facility] AST [Catalytic activity/Vol] 38 U/L 10 - 39 U/L [facility] Bilirubin [Mass/Vol] 0.9 mg/dL NINF - 1.5 mg/dL [facility] Bilirubin.direct [Mass/Vol] 0.1 mg/dL NINF - 0.3 mg/dL [facility] Protein [Mass/Vol] 6.1 g/dL Low 6.4 - 8.3 g/dL [facility] Albumin [Mass/Vol] 2.8 g/dL Low 3.5-5.0 [facility] Comment on above: Performed By: #### H FP, CHM7, MGO ####[facility] (DEFAULT)[address] [place] [address] ALP [Catalytic activity/Vol] 103 U/L Normal 32-126 [facility] Comment on above: Performed By: #### H FP, CHM7, MGO ####[facility] (DEFAULT)[address] [place] [address] ALT [Catalytic activity/Vol] 26 U/L Normal 10-52 [facility] Comment on above: Performed By: #### H FP, CHM7, MGO ####[facility] (DEFAULT)[address] [place] [address] AST [Catalytic activity/Vol] 38 U/L Normal 10-39 [facility] Comment on above: Performed By: #### H FP, CHM7, MGO ####[facility] (DEFAULT)[address] [place] [address] Bilirubin [Mass/Vol] 0.9 mg/dL Normal <1.5 [facility] Comment on above: Performed By: #### H FP, CHM7, MGO ####[facility] (DEFAULT)[address] [place] [address] Bilirubin.indirect [Mass/Vol] 0.1 mg/dL Normal <0.3 [facility] Comment on above: Performed By: #### H FP, CHM7, MGO ####[facility] (DEFAULT)[address] [place] [address] Protein [Mass/Vol] 6.1 g/dL Low 6.4-8.3 [facility] Comment on above: Performed By: #### H FP, CHM7, MGO ####[facility] (DEFAULT)[address] [place] [address] HISTOPLASMA ANTIGEN, FLUIDon 09-05-2023 FH SOURCE BAL RML [facility] Histo FLD interpretation Negative [facility] Histoplasma Antigen, FLUID Not detected ng/mL [facility] HISTOPLASMA CAPSULATUM/BLAST OMYCES SPECIES,PCR FLUIDon 09-05-2023 HISTO/BLASTO RESULT Negative Not Applicable [facility] Specimen source Nom (Unsp spec) BAL RML [facility] IMMUNOPHENOTYPING, TISSUE/FL UIDon 09-05-2023 BKR DX CODE Use Ordering [facility] Flow Interpretation See Comment [facility] Flow Interpreted by: Yossi Perla MD, PhD [facility] MAGNESIUMon 09-05-2023 Interpretation and review of laboratory results Normal [facility] Magnesium [Mass/Vol] 1.7 mg/dL 1.6 - 2 .6 mg/dL [facility] Magnesium [Mass/Vol] 1.7 mg/dL Normal 1.6-2.6 [facility] Comment on above: Performed By: #### H FP, CHM7, MGO ####[facility] (DEFAULT)[address] [place] [address] No Panel Informationon 09-05 Interpretation and review of laboratory results Abnormal [facility] TACROLIMUS LEVEL, TROUGH (NC E DRUG LEVEL)Ordered By: Raymundo Mehta on 09-05-2023 Interpretation and review of laboratory results Normal [facility] Tacrolimus (Bld) [Mass/Vol] 5.3 ng/mL [facility] TACROLIMUS LEVEL, TROUGH (NC E DRUG LEVEL)on 09-05-2023 Tacrolimus, Trough 5.3 ng/mL Normal Bone Susana ow Transplant: 4.0-12.0, Therapeutic: 5.0-15.0 [facility] Comment on above: Order Comment: Pleas e draw at specified interval PRIOR to dose. Do not hold dose to wait for level. Specimens batched twice per day, (M-F) and once per day weekendsMethod performed is a chemiluminescent microparticle immunoasssay on the [employer] i2000.The range is based on experience at [facility] and users should be aware that target concentrations vary widely depending on concomitant therapy, time post-transplant, and desired degree of immunosuppression. Performed By: #### T ACRO ####[facility] (DEFAULT)[address] [place] [address] ARTERIAL BLOOD GAS (FULL GOSS EL)on 09-04-2023 Base excess Calc (Bld) [Moles/Vol] -1.2000 mmol/L -3.0 - 3.0 mmol/L [facility] Calcium.ionized (Bld) [Mass/Vol] 4.79 mg/dL 4.60 - 5.30 mg/dL [facility] Carboxyhemoglobin (Bld) [Mass fraction] 0.7 % NINF - 1.5 % [facility] CO2 (Bld) [Partial pressure] 30 mm[Hg] Low [facility] Glucose [Mass/Vol] 159 mg/dL High 70 - 99 mg/dL [facility] HCO3 (Bld) [Moles/Vol] 22 mmol/L 22 - 28 mmol/L [facility] Hematocrit (Bld) [Volume fraction] 38.0 % Low 40.2 - 50.4 % [facility] Hemoglobin (Bld) [Mass/Vol] 12.6 g/dL Low 13.4 - 16.8 g/dL [facility] Interpretation and review of laboratory results Abnormal [facility] Lactate [Moles/Vol] 2.0 mmol/L High 0.5 - 1. 6 mmol/L [facility] Methemoglobin (Bld) [Mass fraction] 0.0 % NINF - 1.5 % [facility] Oxygen (Bld) [Partial pressure] 62 mm[Hg] Low [facility] Oxygen saturation in Blood 92 % Low 94 - 98 % [facility] Oxyhemoglobin 91 % Low 94 - 98 % [facility] pH (Bld) 7.48 [pH] High 7.35 - 7.45 [facility] Potassium [Moles/Vol] 4.2 mmol/L 3.5 - 5.0 mmol/L [facility] Sodium [Moles/Vol] 130 mmol/L Low 135 - 145 mmol/L [facility] Specimen source Nom (Unsp spec) Arterial [facility] Base Excess -1.2 mmol/L Normal -3.0-3.0 [facility] Comment on above: Performed By: #### Vale UNDERWOOD ####[facility] (DEFAULT)[address] [place] [address] Carboxyhemoglobin 0.7 % Normal <=1.5 [facility] Comment on above: Performed By: #### Vale UNDERWOOD ####[facility] (DEFAULT)[address] [facility] [place] [address] Glucose [Mass/Vol] 159 mg/dL High 70-99 [facility] Comment on above: Performed By: #### G ASAASHISH ####[facility] (DEFAULT)[address] [place] [address] HCO3 (Bld) [Moles/Vol] 22 mmol/L Normal 22-28 [facility] Comment on above: Performed By: #### G ASAASHISH ####[facility] (DEFAULT)[address] [place] [address] Hematocrit (Bld) [Volume fraction] 38.0 % Low 40.2-50.4 [facility] Comment on above: Performed By: #### G ASALL ####[facility] (DEFAULT)[address] [place] [address] Hemoglobin (Bld) [Mass/Vol] 12.6 g/dL Low 13.4-16.8 [facility] Comment on above: Performed By: #### G ASALL ####[facility] (DEFAULT)[address] [place] [address] Ionized Calcium, Whole Blood 4.79 mg/dL Normal 4.60-5.30 [facility] Comment on above: Performed By: #### Vale UNDERWOOD ####[facility] (DEFAULT)[address] [facility] [place] [address] Lactate, Whole Blood 2.0 mmol/L High 0.5-1.6 [facility] Comment on above: Performed By: #### G YASMINE ####[facility] (DEFAULT)[address] [facility] [place] [address] Methemoglobin 0.0 % Normal <=1.5 [facility] Comment on above: Performed By: #### Vale UNDERWOOD ####[facility] (DEFAULT)[address] [facility] [place] [address] Oxyhemoglobin 91 % Low 94-98 [facility] Comment on above: Performed By: #### Vale UNDERWOOD ####[facility] (DEFAULT)[address] [facility] [place] [address] pCO2 30 mm Hg Low 32-48 [facility] Comment on above: Performed By: #### Vale UNDERWOOD ####[facility] (DEFAULT)[address] [place], [place] [address], [place] [address] pH (Bld) 7.48 [pH] High 7.35-7.45 [facility] Comment on above: Performed By: #### Vale UNDERWOOD ####[facility] (DEFAULT)[address] [place], [place] [address], [place] [address] pO2 62 mm Hg Low 83-108 [facility] Comment on above: Performed By: #### G YASMINE ####[facility] (DEFAULT)[address] [place], [place] [address], [place] [address] Potassium [Moles/Vol] 4.2 mmol/L Normal 3.5-5.0 [facility] Comment on above: Performed By: #### Vale UNDERWOOD ####[facility] (DEFAULT)[address] [facility] [place] [address] sO2 92 % Low 94-98 [facility] Comment on above: Performed By: #### G ASALL ####[facility] (DEFAULT)[address] [place] [address] Sodium [Moles/Vol] 130 mmol/L Low 135-145 [facility] Comment on above: Performed By: #### G ASALL ####[facility]DEFAULT[facility] [place] [address] Specimen type Nom (Spec) Arterial Normal [facility] Comment on above: Performed By: #### G ASALL ####[facility] (DEFAULT)[address] [place] [address] Bacteria identified Respirat ory culture Nom (Unsp spec)on 09-04-2023 Bacteria identified Cx Nom (Unsp spec) NO GROWTH DAY 2 OF 2 [facility] Microscopic observation Other stain Nom (Unsp spec) Cytocentrifuge preparation [facility] Microscopic observation Other stain Nom (Unsp spec) Neutrophils, Rare [facility] Microscopic observation Other stain Nom (Unsp spec) Red Blood Cells Present [facility] Microscopic observation Other stain Nom (Unsp spec) No organisms seen [facility] Bacteria identified Respirat ory culture Nom (Unsp spec)Ordered By: Jose Salgado on 09-04-2023 Bacteria identified Cx Nom (Unsp spec) NO GROWTH DAY 2 OF 2 [facility] Microscopic observation Other stain Nom (Unsp spec) Cytocentrifuge preparation [facility] Microscopic observation Other stain Nom (Unsp spec) Neutrophils, Moderate [facility] Microscopic observation Other stain Nom (Unsp spec) Red Blood Cells Present [facility] Microscopic observation Other stain Nom (Unsp spec) No organisms seen [facility] CBC,PLATELETSon 09-04-2023 Erythrocyte distribution width (RBC) [Ratio] 13.2 % 10.9 - 14.3 % [facility] Hematocrit (Bld) [Volume fraction] 38.7 % Low 39.6 - 48.8 % [facility] Hemoglobin (Bld) [Mass/Vol] 12.3 g/dL Low 13.4 - 16.8 g/dL [facility] Interpretation and review of laboratory results Abnormal [facility] MCH (RBC) [Entitic mass] 27.9 pg 26.1 - 33.3 pg [facility] MCHC (RBC) [Mass/Vol] 31.8 g/dL Low 31.9 - 36.5 g/dL [facility] MCV (RBC) [Entitic vol] 87.8 fL 79.0 - 94.5 fL [facility] Platelet mean volume (Bld) [Entitic vol] 9.8 fL 8.7 - 12.3 fL [facility] Platelets (Bld) [#/Vol] 173 10*3/uL 146 - 337 K/uL [facility] RBC (Bld) [#/Vol] 4.41 10*6/uL [facility] WBC (Bld) [#/Vol] 4.57 10*3/uL 3.73 - 10. 10 K/uL [facility] Hematocrit (Bld) [Volume fraction] 38.7 % Low 39.6-48.8 [facility] Comment on above: Performed By: #### H [facility] ####[facility] (DEFAULT)[address] [place] [address] Hemoglobin (Bld) [Mass/Vol] 12.3 g/dL Low 13.4-16.8 [facility] Comment on above: Performed By: #### H [facility] ####[facility] (DEFAULT)[address] [place] [address] MCV (RBC) [Entitic vol] 87.8 fL Normal 79.0-94.5 [facility] Comment on above: Performed By: #### H EMO ####[facility] (DEFAULT)[address] [place] [address] Mean Cell Hgb 27.9 pg Normal 26.1-33.3 [facility] Comment on above: Performed By: #### H EMOGC ####[facility] (DEFAULT)[address] [place] [address] Mean Cell Hgb Conc 31.8 g/dL Low 31.9-36.5 [facility] Comment on above: Performed By: #### H EMOGC ####[facility] (DEFAULT)[address] [place] [address] Platelet mean volume (Bld) [Entitic vol] 9.8 fL Normal 8.7-12.3 [facility] Comment on above: Performed By: #### H EMOGC ####[facility] (DEFAULT)[address] [facility] [place] [address] Platelets (Bld) [#/Vol] 173 10*3/uL Normal 146-337 [facility] Comment on above: Performed By: #### H EMOGC ####[facility] (DEFAULT)[address] [facility] [place] [address] RBC (Bld) [#/Vol] 4.41 10*6/uL Normal 4.38-5.83 [facility] Comment on above: Performed By: #### H EMOGC ####[facility] (DEFAULT)[address] [facility] [place] [address] RBC Distribution 13.2 % Normal 10.9-14.3 [facility] Comment on above: Performed By: #### H EMOGC ####[facility] (DEFAULT)[address] [facility] [place] [address] WBC (Bld) [#/Vol] 4.57 10*3/uL Normal 3.73-10.10 [facility] Comment on above: Performed By: #### H EMOGC ####[facility] (DEFAULT)[address] [facility] [place] [address] CHEM 7 (LYTES,BUN,CREA,GLUC) on 09-04-2023 Anion gap [Moles/Vol] 16 mmol/L 7 - 17 mmol/L [facility] Chloride [Moles/Vol] 104 mmol/L 98 - 10 8 mmol/L [facility] CO2 [Moles/Vol] 18 mmol/L Low 21 - 31 mmol/L [facility] Creatinine [Mass/Vol] 1.22 mg/dL 0.70 - 1.30 mg/dL [facility] eGFR, CKD-EPI, Male 71 - PINF [facility] Glucose [Mass/Vol] 124 mg/dL High 70 - 99 mg/dL [facility] Osmolality Calc [Osmolality] 284 [facility] Potassium [Moles/Vol] 3.9 mmol/L 3.5 - 5.0 mmol/L [facility] Sodium [Moles/Vol] 134 mmol/L Low 135 - 145 mmol/L [facility] Urea nitrogen [Mass/Vol] 15 mg/dL 7 - 25 mg/dL [facility] Urea nitrogen/Creatinine [Mass ratio] 12 mg/mg [facility] Anion gap [Moles/Vol] 16 mmol/L Normal 7-17 [facility] Comment on above: Performed By: #### NATHANIEL RAMÍREZ, HFP ####[facility] (DEFAULT)[address] [place] [address] Chloride [Moles/Vol] 104 mmol/L Normal 98-108 [facility] Comment on above: Performed By: #### NATHANIEL RAMÍREZ, HFP ####[facility] (DEFAULT)[address] [place] [address] CO2 [Moles/Vol] 18 mmol/L Low 21-31 [facility] Comment on above: Performed By: #### NATHANIEL RAMÍREZ, HFP ####[facility] (DEFAULT)[address] [place] [address] Creatinine [Mass/Vol] 1.22 mg/dL Normal 0.70-1.30 [facility] Comment on above: Performed By: #### NATHANIEL RAMÍREZ, HFP ####[facility] (DEFAULT)[address] [place] [address] GFR/1.73 sq M.predicted among non-blacks MDRD (S/P/Bld) [Vol rate/Area] 71 mL/min/{1.73_m2} Normal >=60 [facility] Comment on above: Result Comment: Repo rted eGFR is based on the CKD-EPI 2020 equation using creatinine, age, and sex. Performed By: #### NATHANIEL RAMÍREZ, HFP ####[facility] (DEFAULT)[address] [place] [address] Glucose [Mass/Vol] 124 mg/dL High 70-99 [facility] Comment on above: Performed By: #### NATHANIEL RAMÍREZ, HFP ####[facility] (DEFAULT)[address] [place] [address] Osmolality [Osmolality] 284 mosm/kg Normal 278-305 [facility] Comment on above: Performed By: #### NATHANIEL RAMÍREZ, HFP ####[facility] (DEFAULT)[address] [place] [address] Potassium [Moles/Vol] 3.9 mmol/L Normal 3.5-5.0 [facility] Comment on above: Performed By: #### NATHANIEL RAMÍREZ, HFP ####[facility] (DEFAULT)[address] [place] [address] Sodium [Moles/Vol] 134 mmol/L Low 135-145 [facility] Comment on above: Performed By: #### NATHANIEL RAMÍREZ, HFP ####[facility] (DEFAULT)[address] [place] [address] Urea nitrogen [Mass/Vol] 15 mg/dL Normal 7-25 [facility] Comment on above: Performed By: #### NATHANIEL RAMÍREZ, HFP ####[facility] (DEFAULT)[address] [place] [address] Urea nitrogen/Creatinine [Mass ratio] 12 mg/mg Normal [facility] Comment on above: Performed By: #### M NATHANIEL BLOOM, HFP ####[facility] (DEFAULT)[address] [place] [address] CMV PCR,FLUIDS,URINE,EYE ETC on 09-04-2023 Specimen source Nom (Unsp spec) BAL LLL [facility] Specimen source Nom (Unsp spec) BAL RML [facility] HEPATIC FUNCTION PANELon Albumin [Mass/Vol] 3.0 g/dL Low 3.5 - 5.0 g/dL [facility] ALP [Catalytic activity/Vol] 112 U/L 32 - 126 U/L [facility] ALT [Catalytic activity/Vol] 22 U/L 10 - 52 U/L [facility] AST [Catalytic activity/Vol] 30 U/L 10 - 39 U/L [facility] Bilirubin [Mass/Vol] 1.2 mg/dL [facility] - 1.5 mg/dL [facility] Bilirubin.direct [Mass/Vol] 0.4 mg/dL High NINF - 0.3 mg/dL [facility] [facility] [place] Protein [Mass/Vol] 6.4 g/dL 6.4 - 8.3 g/dL [facility] Albumin [Mass/Vol] 3.0 g/dL Low 3.5-5.0 [facility] Comment on above: Performed By: #### M NATHANIEL BLOOM, HFP ####U [facility] (DEFAULT)[address] [place] [address] ALP [Catalytic activity/Vol] 112 U/L Normal 32-126 [facility] Comment on above: Performed By: #### M NATHANIEL BLOOM, HFP ####U [facility] (DEFAULT)[address] [place] [address] ALT [Catalytic activity/Vol] 22 U/L Normal 10-52 [facility] Comment on above: Performed By: #### NATHANIEL RAMÍREZ, HFP ####[facility] [place] (DEFAULT)[address] [place] [address] AST [Catalytic activity/Vol] 30 U/L Normal 10-39 [facility] Comment on above: Performed By: #### NATHANIEL RAMÍREZ, HFP ####[facility] (DEFAULT)[address] [place] [address] Bilirubin [Mass/Vol] 1.2 mg/dL Normal <1.5 [facility] Comment on above: Performed By: #### NATHANIEL RAMÍREZ, HFP ####[facility] (DEFAULT)[address] [place] [address] Bilirubin.indirect [Mass/Vol] 0.4 mg/dL High <0.3 [facility] Comment on above: Performed By: #### NATHANIEL RAMÍREZ, HFP ####[facility] (DEFAULT)[address] [place] [address] Protein [Mass/Vol] 6.4 g/dL Normal 6.4-8.3 [facility] Comment on above: Performed By: #### NATHANIEL RAMÍREZ, HFP ####[facility] (DEFAULT)[address] [place] [address] LEGIONELLA PCRon 09-04-2023 Legionella sp rRNA Probe Ql (Unsp spec) Negative Not Applicable [facility] Specimen source Nom (Unsp spec) BAL RML [facility] Laboratory - Microbiology an d Antimicrobial susceptibilityon 09-04-2023 CMV DNA ESTELITA+probe Ql (Unsp spec) Negative Negative [facility] MAGNESIUMon 09-04-2023 Magnesium [Mass/Vol] 1.4 mg/dL Low 1.6 - 2 .6 mg/dL [facility] Magnesium [Mass/Vol] 1.4 mg/dL Low 1.6-2.6 [facility] Comment on above: Performed By: #### M GO, CHM7, HFP ####[facility] (DEFAULT)[address] [place] [address] No Panel Informationon 09-04 Annotation comment [Interpretation] Narrative DNR [facility] PN Report Status DNR [facility] Pneumocystis jiroveci,PCR result Negative Not Applicable [facility] Interpretation and review of laboratory results Abnormal [facility] PNEUMOCYSTIS JIROVECI,PCRon 09-04-2023 Specimen source Nom (Unsp spec) BAL LLL [facility] Specimen source Nom (Unsp spec) BAL RML [facility] Portable XR Chest Viewson RADIOLOGY RADIOLOGY [facility] Radiology Study observation (narrative) [facility] Portable XR Chest ViewsOrder ed By: Joanie Nugent on 09-04-2023 [facility] Work Phone: TACROLIMUS LEVEL, TROUGH (NC E DRUG LEVEL)on 09-04-2023 Interpretation and review of laboratory results Abnormal [facility] Tacrolimus (Bld) [Mass/Vol] 3.6 ng/mL Low [facility] Tacrolimus, Trough 3.6 ng/mL Low Bone Susana ow Transplant: 4.0-12.0, Therapeutic: 5.0-15.0 [facility] Comment on above: Order Comment: Pleas e draw at specified interval PRIOR to dose. Do not hold dose to wait for level. Specimens batched twice per day, (M-F) and once per day weekendsMethod performed is a chemiluminescent microparticle immunoasssay on the [employer] i2000.The range is based on experience at [facility] and users should be aware that target concentrations vary widely depending on concomitant therapy, time post-transplant, and desired degree of immunosuppression. Performed By: #### T ACRO ####[facility] (DEFAULT)[address] [place] [address] XR CHEST PORTABLEon 09-04-20 23 XR CHEST PORTABLE Normal [facility] ASPERGILLUS ANTIGEN, BALon 1 Galactomannan Ag IA Qn (Unsp spec) <0.500 NINF [facility] Galactomannan Ag IA Qn (Unsp spec) <0.500 NINF [facility] BAL CONSULTOrdered By: Noa Peralta on 09-03-2023 ALVEOLAR MACROPHAGES 32 % [facility] Work Phone: Bal comments Correlation with microbiology stains and cultures is recommended. [facility] Work Phone: Bal Diff Quik Stain Quality Check Acceptable [facility] Work Phone: BKR BAL INTERPRETATION Cellular specimen comprised of alveolar macrophages and small lymphocytes. No definitive microorganisms are observed. Moderate degenerative changes. [facility] Work Phone: BKR DX CODE Use Ordering [facility] Work Phone: Eosinophils Patterson stain Ql (Unsp spec) 0 % [facility] Work Phone: Lymphocytes/100 WBC (Bld) 57 % [facility] Work Phone: Neutrophils/100 WBC Manual cnt (Bronch spec) 11 % [facility] Work Phone: Pathologist review Jame (Unsp spec) [Interp] Leonardo Peralta MD [facility] Work Phone: [facility] Work Phone: BAL CONSULTon 09-03-2023 ALVEOLAR MACROPHAGES 33 % [facility] Bal comments Correlation with microbiology stains and cultures is recommended. Correlation with viral studies is recommended. [facility] Bal Diff Quik Stain Quality Check Acceptable [facility] BKR BAL INTERPRETATION Cellular specimen comprised of alveolar macrophages and small lymphocytes. No definitive microorganisms are observed. Rare degenerating cells with changes suggestive of viral cytopathic effect are noted. Moderate degenerative changes. [facility] BKR DX CODE Use Ordering [facility] Eosinophils Patterson stain Ql (Unsp spec) 0 % [facility] Lymphocytes/100 WBC (Bld) 49 % [facility] Neutrophils/100 WBC Manual cnt (Bronch spec) 18 % [facility] Pathologist review Jame (Unsp spec) [Interp] Leonardo Peralta MD [facility] BRONCHOSCOPYon 09-03-2023 LAB, [facility] CBC,PLATELETSon 09-03-2023 Erythrocyte distribution width (RBC) [Ratio] 13.4 % 10.9 - 14.3 % [facility] Hematocrit (Bld) [Volume fraction] 39.6 % 39.6 - 48.8 % [facility] Hemoglobin (Bld) [Mass/Vol] 12.8 g/dL Low 13.4 - 16.8 g/dL [facility] Interpretation and review of laboratory results Abnormal [facility] MCH (RBC) [Entitic mass] 27.8 pg 26.1 - 33.3 pg [facility] MCHC (RBC) [Mass/Vol] 32.3 g/dL 31.9 - 36.5 g/dL [facility] MCV (RBC) [Entitic vol] 85.9 fL 79.0 - 94.5 fL [facility] Platelet mean volume (Bld) [Entitic vol] 9.4 fL 8.7 - 12.3 fL [facility] Platelets (Bld) [#/Vol] 222 10*3/uL 146 - 337 K/uL [facility] RBC (Bld) [#/Vol] 4.61 10*6/uL [facility] WBC (Bld) [#/Vol] 4.36 10*3/uL 3.73 - 10. 10 K/uL [facility] Hematocrit (Bld) [Volume fraction] 39.6 % Normal 39.6-48.8 [facility] Comment on above: Performed By: #### H EMOGC ####[facility] (DEFAULT)[address] [facility] [place] [address] Hemoglobin (Bld) [Mass/Vol] 12.8 g/dL Low 13.4-16.8 [facility] Comment on above: Performed By: #### H EMOGC ####[facility] (DEFAULT)[address] [facility] [place] [address] MCV (RBC) [Entitic vol] 85.9 fL Normal 79.0-94.5 [facility] Comment on above: Performed By: #### H EMOGC ####[facility] (DEFAULT)[address] [facility] [place] [address] Mean Cell Hgb 27.8 pg Normal 26.1-33.3 [facility] Comment on above: Performed By: #### H EMOGC ####[facility] (DEFAULT)[address] [facility] [place] [address] Mean Cell Hgb Conc 32.3 g/dL Normal 31.9-36.5 [facility] Comment on above: Performed By: #### H EMOGC ####[facility] (DEFAULT)[address] [facility] [place] [address] Platelet mean volume (Bld) [Entitic vol] 9.4 fL Normal 8.7-12.3 [facility] Comment on above: Performed By: #### H EMOGC ####[facility] (DEFAULT)[address] [facility] [place] [address] Platelets (Bld) [#/Vol] 222 10*3/uL Normal 146-337 [facility] Comment on above: Performed By: #### H EMOGC ####[facility] (DEFAULT)[address] [facility] [place] [address] RBC (Bld) [#/Vol] 4.61 10*6/uL Normal 4.38-5.83 [facility] Comment on above: Performed By: #### H [facility] ####[facility] (DEFAULT)[address] [place] [address] RBC Distribution 13.4 % Normal 10.9-14.3 [facility] Comment on above: Performed By: #### H [facility] ####[facility] (DEFAULT)[address] [place] [address] WBC (Bld) [#/Vol] 4.36 10*3/uL Normal 3.73-10.10 [facility] Comment on above: Performed By: #### H [facility] ####[facility] (DEFAULT)[address] [place] [address] CHEM 7 (LYTES,BUN,CREA,GLUC) on 09-03-2023 Anion gap [Moles/Vol] 12 mmol/L 7 - 17 mmol/L [facility] Chloride [Moles/Vol] 104 mmol/L 98 - 10 8 mmol/L [facility] CO2 [Moles/Vol] 24 mmol/L 21 - 31 mmol/L [facility] Creatinine [Mass/Vol] 1.20 mg/dL 0.70 - 1.30 mg/dL [facility] eGFR, CKD-EPI, Male 73 - [facility]F [facility] Glucose [Mass/Vol] 112 mg/dL High 70 - 99 mg/dL [facility] Osmolality Calc [Osmolality] 288 [facility] Potassium [Moles/Vol] 4.1 mmol/L 3.5 - 5.0 mmol/L [facility] Sodium [Moles/Vol] 136 mmol/L 135 - 145 mmol/L [facility] Urea nitrogen [Mass/Vol] 17 mg/dL 7 - 25 mg/dL [facility] Urea nitrogen/Creatinine [Mass ratio] 14 mg/mg [facility] Anion gap [Moles/Vol] 12 mmol/L Normal 7-17 [facility] Comment on above: Performed By: #### M GO, CHM7, HFP ####U [facility] (DEFAULT)[address] [place] [address] Chloride [Moles/Vol] 104 mmol/L Normal 98-108 [facility] Comment on above: Performed By: #### NATHANIEL RAMÍREZ, HFP ####[facility] (DEFAULT)[address] [place] [address] CO2 [Moles/Vol] 24 mmol/L Normal 21-31 [facility] Comment on above: Performed By: #### NATHANIEL RAMÍREZ, HFP ####[facility] [place] (DEFAULT)[address] [facility] [place] [address] Creatinine [Mass/Vol] 1.20 mg/dL Normal 0.70-1.30 [facility] Comment on above: Performed By: #### NATHANIEL RAMÍREZ, HFP ####[facility] (DEFAULT)[address] [place] [address] GFR/1.73 sq M.predicted among non-blacks MDRD (S/P/Bld) [Vol rate/Area] 73 mL/min/{1.73_m2} Normal >=60 [facility] Comment on above: Result Comment: Repo rted eGFR is based on the CKD-EPI 2020 equation using creatinine, age, and sex. Performed By: #### NATHANIEL RAMÍREZ, HFP ####U [facility] (DEFAULT)[address] [facility] [place] [address] Glucose [Mass/Vol] 112 mg/dL High 70-99 [facility] Comment on above: Performed By: #### NATHANIEL RAMÍREZ, HFP ####U [facility] (DEFAULT)[address] [facility] [place] [address] Osmolality [Osmolality] 288 mosm/kg Normal 278-305 [facility] Comment on above: Performed By: #### NATHANIEL RAMÍREZ, HFP ####[facility] (DEFAULT)[address] [facility] [place] [address] Potassium [Moles/Vol] 4.1 mmol/L Normal 3.5-5.0 [facility] Comment on above: Performed By: #### NATHANIEL RAMÍREZ, HFP ####[facility] (DEFAULT)[address] [place] [address] Sodium [Moles/Vol] 136 mmol/L Normal 135-145 [facility] Comment on above: Performed By: #### NATHANIEL RAMÍREZ, HFP ####[facility] (DEFAULT)[address] [place] [address] Urea nitrogen [Mass/Vol] 17 mg/dL Normal 7-25 [facility] Comment on above: Performed By: #### NATHANIEL RAMÍREZ, HFP ####[facility] (DEFAULT)[address] [place] [address] Urea nitrogen/Creatinine [Mass ratio] 14 mg/mg Normal [facility] Comment on above: Performed By: #### NATHANIEL RAMÍREZ, HFP ####[facility] (DEFAULT)[address] [facility] [place] [address] CYTOLOGY, NON-GYNOrdered By: Sherice Jimenez on 09-03-2023 CYTOLOGIC DIAGNOSIS t3rjsHWgOOZsfHGcTXCrV3pgjeD qVZNctLQzU1NcooarDRlpYZ4rDI 3hbOuihQNohXBlLLRrYgXlm3afu 563jYHut0lwHONUwubipSh2i5oa ZTQZdT4ff4a3gK38IIVfqJ0fqWD gCDyfwjKzTJgtutGxuwWfTuy5PA Q4sOumFichwDN8rUGvrSM5ZYmnd 5YkuAumtSouUEQ5SQJdTyrmUTgk vTH0pMKutOrqlCXyWJ7ec5rzaAA 1yuRuCMR0hAabuIZ5rLlutqjgl4 axwGR2zJD4CQcwvNA4HKglQvZeF 9hzUZFddU7sS88pX8agTZYynHlc BZzuJZIigPB0JXB2NDQrp0hpWQH qnBLblFLyZsRkNVgwPoh4z0pfSB CodH18uSZuvkH6yJtfLHljhZG9C Q29OPrgu6RbNQYtmQblYQUcfD8x YzIzXGxldmVsbmZjbjIzXGxldmV pqdDdBIfytxZoi4DpjhKenNB6EU xmtpXayGC0tRvbENFbM1I9K611O ZdtezAqnxQoGbUzdvc7HJQfeEmf bGlzdGxldmVsXGxldmVsbmZjMjN vfEM7BKahQrBoNnArqBI1OOewRh GdxVN1KEkatLVeyUU7NNlupMU8J Fv3NOz0DPhpBJsvWjq3uWhbuUM2 PWbvuH7aCAUsM76uHbV3e6vliSJ 0dHK0CYrvlFG7DNxfDtSxX8lrCT BjlR0jS82vW5avDEKbqUfmLAwvE MQoyCW4SNF9XAWwi5umXLYzeGOn zIPgEtQiOAooNpg3c8osFIHjnD9 3zHFwvcC6bCotVR86AXmdn1BpVP GwjHywRZVytL0xUaGtOVawsjHua mZjbjIzXGxldmVsamMwXGxldmVs t6NaemDkxXM0NZgauuTaqRO6oAw gXQReH8C9F368LPtqvfEaapTaPw Jfxvl4QFBixLqvfLascLfcunHfV DhrjlLxbjZnRcGzpBH1EKpsTaFm AdEpqPV7BVjxQtRimYC6DCcqmGN uwZG1YJtljYR6XLu8BQk6ULqgYV lvHhe6uFdbiQU5UXwqzQ3pPVWiH 51uYxG4w4gqbEZ2fQY4BLsyzDZ1 EDlrAdSxA4pzNAXwmK2yN31dW3q oDOFguVqhYIeuGBThtZM3THQ2MR Oiy9ieXCFfcZLlcDStFcGuBXsqQ ws6r1ltCCUxbF72tZNfnuH4hPog SZ55YVpyd5UwMESlmHoqSWLnmP9 mYzIzXGxldmVsbmZjbjIzXGxldm IhryCeVKkbzxTov7KfkyMgcOY4N HtwljUpcLC8tGvaWSFzD0Y4C908 YUuqwnSdchZsUkLduel7HNGpsYa cbGlzdGxldmVsXGxldmVsbmZjMj AziOS7LJrnSxOxPbFrrCN1PGvzG mAudNJ4MKkwpMPsyYY2TRmrfSF4 NKz5POd3PMzbGUjsYgh9rCwzoMO 8XQpxwS1kGEMdR92xZkY8jT02CQ tumIieqZ01OJEomGSxvDWmrKM6W SzobNddjH01PVJtuZLkELhno1Fa GVXhNnH8KEY4EIXwgLmseU77HPS laNWsA566rvJxQMdkJA45EGEokS SksdUuBuAlZCYhnPVbzRW9ISChQ X1hblpdPMguRSauNROmczE4OOZq oFIxE2TfMKPwJU6fjcqtBEY2TMb qRBKhLJF6FbBmOTZxk1Xqozw3Vy QelPh7i4fnTSZtMAMkqWsmo6mnT XM2JXOrdSAxD5duoA9xRGZiJF8z efcwh5suGQdgRDjeDODohRH2olH 4CWJggDBkZ5HqeZ1lTVZlDIEyun DtvSzkoQ8iEloqchQvPURtAYZUI gBMRd2AL4eIBYaDXB0HLZOoATKE LHeJSUCIJAYHZZiCY4JDNYaVOaX sVHOoYRZeQ1zPH4rBB2yrVzxeCc QzYErcRPYpYzIsC7HmURTpjnuaN RJyOXZFIJ0CRKKOIGRFBp5XAFM7 CEVxyfnuaVA7NGhuuqJefHo2mPL wvBevgL4cLvlfjpAeZGXjXUWKcs GKUGieV76ptkXuO8MvfQXiEVKcW FanQA15uRAdJNGzlAZuKHs8uU0k DWcayIixrvDAkXHkmE4gxzjlWRt jZjBccGFyXGxpMFxsczBccGFyfQ == [facility] Work Phone: Case Report [facility] Work Phone: Clinical History k3lsfOTpRBRprWFmYSGb M5izkfI dOJCjpPTcQ1OsptqaXDmpWE5wBG 7szTjgaLFiwEPnXLDjZiVfm6sdq 524oSVah5gvJHKPasyumUw7gGza H54ze9S0ByjvD2itTWGdZJduLQF gRSrlmOJgHLe5TCEifNZboqCaWz RvKIBxxPApjUT3WGRiGP2xvhafC PpyOAtgCPAtsmT3XNOadSOgL7Mb TXZdCI8fwezwLNO7FAknKUDfLMR 5XnWmGBWhs9Yebqh7HlWvrMq3u3 vhEGRcNKCgmKydd4drNKT6SLMka OCnJ7bgpD4xLRPxLB1wgiwqz4og WQjlTQlcPSZdhZT1coV8VZUbiKT nW5YowC6pSGGcNOZryxNosKrvaM 5cZnMyMFxjZjEgUmVuYWwgdHJhb dZikPZtlJ3jPZGypi2= [facility] Work Phone: For Immediate Release to Patient's MyChart? Yes Yes [facility] Work Phone: Gross Description y5ywsUFkAQEsrQGgGCUr A8okgsP eNNUgxKKsH5HbtbopJHmjXV6rAD 7kgKxfdLWrgDBrAOYiYiVdr8sln 243hLKjn4ejHHVXiyhpgHl3hNfc G02hq5Y9FauoK02kcJUzDSC6GVY fYFBhoLBoYOYmPET0CSZoiLYiS9 nyKQTfJY0tbtgdHZmkHTzyASWlu MD8GODbpWLeY2CbOFKzMOedZGHk aab0XwVsLj6ctFDvtFbdIHlpWDM kXHBsYWluXGZzMjAgTExMIEJBTF fuINMrAEXmsIKhHTq2WUNjjQ6om SCowjGzxAEbsP6gyDyoGOgpCMWb MOUXKKDoqYipZQPEWJEqw1IfpK5 ccGFyXHBhcmRccGFyXHBhcn0= [facility] Work Phone: [facility] Work Phone: HEPATIC FUNCTION PANELon Albumin [Mass/Vol] 3.2 g/dL Low 3.5 - 5.0 g/dL [facility] ALP [Catalytic activity/Vol] 118 U/L 32 - 126 U/L [facility] ALT [Catalytic activity/Vol] 25 U/L 10 - 52 U/L [facility] AST [Catalytic activity/Vol] 32 U/L 10 - 39 U/L [facility] Bilirubin [Mass/Vol] 1.0 mg/dL NINF - 1.5 mg/dL [facility] Bilirubin.direct [Mass/Vol] 0.3 mg/dL High NINF - 0.3 mg/dL [facility] Protein [Mass/Vol] 6.5 g/dL 6.4 - 8.3 g/dL [facility] Albumin [Mass/Vol] 3.2 g/dL Low 3.5-5.0 [facility] Comment on above: Performed By: #### Rod BLOOM CHM7, HFP ####[facility] (DEFAULT)[address] [place] [address] ALP [Catalytic activity/Vol] 118 U/L Normal 32-126 [facility] Comment on above: Performed By: #### NATHANIEL RAMÍREZ, HFP ####[facility] (DEFAULT)[address] [place] [address] ALT [Catalytic activity/Vol] 25 U/L Normal 10-52 [facility] Comment on above: Performed By: #### TJ RAMÍREZ7, HFP ####[facility] [place] (DEFAULT)[address] [place] [address] AST [Catalytic activity/Vol] 32 U/L Normal 10-39 [facility] Comment on above: Performed By: #### Rod BLOOM CHM7, HFP ####[facility] (DEFAULT)[address] [place] [address] Bilirubin [Mass/Vol] 1.0 mg/dL Normal <1.5 [facility] Comment on above: Performed By: #### Rod BLOOM CHM7, HFP ####[facility] (DEFAULT)[address] [place] [address] Bilirubin.indirect [Mass/Vol] 0.3 mg/dL High <0.3 [facility] Comment on above: Performed By: #### Rod BLOOM CHM7, HFP ####[facility] (DEFAULT)[address] [place] [address] Protein [Mass/Vol] 6.5 g/dL Normal 6.4-8.3 [facility] Comment on above: Performed By: #### M , CHM7, [facility] ####[facility] (DEFAULT)[address] [place] [address] HISTOPLASMA AND BLASTOMYCES ANTIGEN, ENZYME IMMUNOASSAY, SERMon 09-03-2023 Histoplasma/Blastomy antonia Ag Result Detected Critically abnormal Not Detected [facility] Histoplasma/Blastomy antonia Ag Value 5.3 ng/mL [facility] Interpretation and review of laboratory results Abnormal [facility] IMMUNOPHENOTYPING, TISSUE/FL UIDon 09-03-2023 BKR DX CODE Use Ordering Normal [facility] Comment on above: Order Comment: Dilan gregory lab add on to specimen collected yesterdayIMMUNOPHENOTYPING DIAGNOSISPATIENT NAME: GEORGE SLATER: 1970MRN: [id number]#: [id number] BY: Yossi Perla M.D,, Ph.D. [id number] TYPE: Bronchial Alveolar LavageLABORATORY INTERPRETATION:There is no [...] notbe regarded as investigational or for research.The [facility] lower limitof CLL MRD detection is 0.1% of the gated lymphocytes. Performed By: #### G IPP ####[facility] (DEFAULT)[address] [place] [address] Flow Interpretation See Comment Normal [facility] Comment on above: Order Comment: Pleas e lab add on to specimen collected yesterdayIMMUNOPHENOTYPING DIAGNOSISPATIENT NAME: GEORGE SLATER: 1970MRN: [id number]#: [id number] BY: Yossi Perla M.D,, Ph.D. [id number] TYPE: Bronchial Alveolar LavageLABORATORY INTERPRETATION:There is no [...] notbe regarded as investigational or for research.The [facility] Flow Cytometry Laboratory lower limitof CLL MRD detection is 0.1% of the gated lymphocytes. Performed By: #### G IPP ####[facility] (DEFAULT)[address] [place] [address] Flow Interpreted by: Yossi Perla MD, PhD [facility] Comment on above: Order Comment: Pleas e lab add on to specimen collected yesterdayIMMUNOPHENOTYPING DIAGNOSISPATIENT NAME: GEORGE SLATER: 1970MRN: [id number]#: [id number] BY: Yossi Perla M.D,, Ph.D. [id number] TYPE: Bronchial Alveolar LavageLABORATORY INTERPRETATION:There is no [...] notbe regarded as investigational or for research.The [facility] Flow Cytometry Laboratory lower limitof CLL MRD detection is 0.1% of the gated lymphocytes. Performed By: #### G IPP ####[facility] (DEFAULT)[address] [place] [address] MAGNESIUMon 09-03-2023 Interpretation and review of laboratory results Normal [facility] Magnesium [Mass/Vol] 1.6 mg/dL 1.6 - 2 .6 mg/dL [facility] Magnesium [Mass/Vol] 1.6 mg/dL Normal 1.6-2.6 [facility] Comment on above: Performed By: #### M GO, CHM7, [facility] ####[facility] (DEFAULT)[address] [place], [place] [address] No Panel Informationon 09-03 Interpretation and review of laboratory results Abnormal [facility] PARVOVIRUS (B19) DNA, PCR, B LOODon 09-03-2023 PARVOVIRUS B19 BY RAPID PCR Not detected Not Detected [facility] NC SPEC SOURCE Whole Blood [facility] Portable XR Chest Viewson RADIOLOGY RADIOLOGY [facility] Radiology Study observation (narrative) [facility] Portable XR Chest ViewsOrder ed By: [place] on 09-03-2023 [facility] Work Phone: XR CHEST PORTABLEon 09-03-20 23 XR CHEST PORTABLE Normal [facility] ACID FAST CULTUREon 09-02-20 23 Bacteria identified Cx Nom (Unsp spec) NO GROWTH DAY 42 OF 42 Normal [facility] Comment on above: Performed By: #### A FB ####[facility] (DEFAULT)[address] [place] [address] Fluorochrome Stain No acid Fast Bacillus Seen Normal [facility] Comment on above: Performed By: #### A FB ####[facility] (DEFAULT)[address] [place] [address] Bacteria identified Cx Nom (Unsp spec) NO GROWTH DAY 42 OF 42 Normal [facility] Comment on above: Order Comment: BAL A FB culture. Clinical suspicion for non-tuberculous mycobacteria Performed By: #### A FB ####[facility] (DEFAULT)[address] [place] [address] Fluorochrome Stain No acid Fast Bacillus Seen Normal [facility] Comment on above: Order Comment: BAL A FB culture. Clinical suspicion for non-tuberculous mycobacteria Performed By: #### A FB ####[facility] (DEFAULT)[address] [place] [address] ASPERGILLUS (GALACTOMANNAN), ANTIGENon 09-02-2023 Galactomannan Ag IA Qn <0.500 NINF [facility] ASPERGILLUS ANTIGEN, BALon 1 Aspergillus Galactomannan Antigen, BAL <0.500 Normal <0.5 [facility] Comment on above: Result Comment: ---- ADDITIONAL INFORMATION This is a qualitative test and the resulted index value isnot indicative of disease severity. Serial testing isrecommended for patients at high risk for invasiveaspergillosis.This assay was performed using the FDA-cleared [employer] Aspergillus Galactomannan EIA.Test Performed by:[address] Director: Rosendo Bose M.D. Ph.D.; CLIA# [id number] Performed By: #### X ASGFL ####[facility] (DEFAULT)[address] [place] [address] Aspergillus Galactomannan Antigen, BAL <0.500 Normal <0.5 [facility] Comment on above: Order Comment: BAL a spirgillus antigen Result Comment: ---- ADDITIONAL INFORMATION This is a qualitative test and the resulted index value isnot indicative of disease severity. Serial testing isrecommended for patients at high risk for invasiveaspergillosis.This assay was performed using the FDA-cleared [employer] Aspergillus Galactomannan EIA.Test Performed by:[address] Director: Rosendo Bose M.D. Ph.D.; CLIA# [id number] Performed By: #### X ASGFL ####[facility] (DEFAULT)[address] [address] ATYPICAL BACTERIAL PNEUMONIA ,PCROrdered By: Shari Contreras on 09-02-2023 B. parapertussis DNA ESTELITA+probe Ql (Unsp spec) Not detected Not Detected [facility] B. pertussis DNA ESTELITA+probe Ql (Unsp spec) Not detected Not Detected [facility] C. pneumoniae DNA ESTELITA+probe Ql (Unsp spec) Not detected Not Detected [facility] Interpretation and review of laboratory results Normal [facility] M. pneumoniae DNA ESTELITA+probe Ql (Unsp spec) Not detected Not Detected [facility] ATYPICAL BACTERIAL PNEUMONIA ,PCRon 09-02-2023 Bordetella Parapertussis Not detected Normal Not Detected [facility] Comment on above: Order Comment: Viral [...] by [facility]. It has not been cleared or approved by the FDA. The laboratory is required under CLIA as qualified to perform high-complexity testing. This test is used for clinical purposes. It should not be regarded as investigational or for research. Performed By: #### A TYPNE ####[facility] (DEFAULT)[address] [place] [address] Bordetella Pertussis Not detected Normal Not Detected [facility] Comment on above: Order Comment: Viral [...] by [facility]. It has not been cleared or approved by the FDA. The laboratory is required under CLIA as qualified to perform high-complexity testing. This test is used for clinical purposes. It should not be regarded as investigational or for research. Performed By: #### A TYPNE ####[facility] (DEFAULT)[address] [address] Chlamydia Pneumoniae Not detected Normal Not Detected [facility] Comment on above: Order Comment: Viral [...] by [facility]. It has not been cleared or approved by the FDA. The laboratory is required under CLIA as qualified to perform high-complexity testing. This test is used for clinical purposes. It should not be regarded as investigational or for research. Performed By: #### A TYPNE ####[facility] (DEFAULT)[address] [address] Mycoplasma Pneumoniae Not detected Normal Not Detected [facility] Comment on above: Order Comment: Viral [...] by [facility]. It has not been cleared or approved by the FDA. The laboratory is required under CLIA as qualified to perform high-complexity testing. This test is used for clinical purposes. It should not be regarded as investigational or for research. Performed By: #### A TYPNE ####[facility] (DEFAULT)[address] [address] BAL CONSULTon 09-02-2023 ALVEOLAR MACROPHAGES 33 % Normal [facility] Comment on above: Order Comment: BAL c onsultIf > 15% lymphocytes - please send for flow. Performed By: #### B ALC ####[facility] (DEFAULT)[address] [place] [address] Bal comments Correlation with microbiology stains and cultures is recommended. Correlation with viral studies is recommended. Normal [facility] Comment on above: Order Comment: BAL c onsultIf > 15% lymphocytes - please send for flow. Performed By: #### B ALC ####[facility] (DEFAULT)[address] [place] [address] Bal Diff Quik Stain Quality Check Acceptable Normal [facility] Comment on above: Order Comment: BAL c onsultIf > 15% lymphocytes - please send for flow. Performed By: #### B ALC ####[facility] (DEFAULT)[address] [place] [address] Bal Reviewed By: Leonardo Peralta MD [facility] Comment on above: Order Comment: BAL c onsultIf > 15% lymphocytes - please send for flow. Performed By: #### B ALC ####[facility] (DEFAULT)[address] [place] [address] BKR BAL INTERPRETATION Cellular specimen comprised of alveolar macrophages and small lymphocytes. No definitive microorganisms are observed. Rare degenerating cells with changes suggestive of viral cytopathic effect are noted. Moderate degenerative changes. Normal [facility] Comment on above: Order Comment: BAL c onsultIf > 15% lymphocytes - please send for flow. Performed By: #### B ALC ####[facility] (DEFAULT)[address] [place] [address] BKR DX CODE Use Ordering Normal [facility] Comment on above: Order Comment: BAL c onsultIf > 15% lymphocytes - please send for flow. Performed By: #### B ALC ####[facility] (DEFAULT)[address] [place] [address] Eosinophils/100 WBC (Bld) 0 % Normal [facility] Comment on above: Order Comment: BAL c onsultIf > 15% lymphocytes - please send for flow. Performed By: #### B ALC ####[facility] (DEFAULT)[address] [place] [address] Lymphocytes/100 WBC (Bld) 49 % Normal [facility] Comment on above: Order Comment: BAL c onsultIf > 15% lymphocytes - please send for flow. Performed By: #### B ALC ####[facility] (DEFAULT)[address] [facility] [place] [address] Neutrophils/100 WBC (Bld) 18 % Normal [facility] Comment on above: Order Comment: BAL c onsultIf > 15% lymphocytes - please send for flow. Performed By: #### B ALC ####[facility] (DEFAULT)[address] [facility] [place] [address] ALVEOLAR MACROPHAGES 32 % Normal [facility] Comment on above: Order Comment: BAL c onsult for cell differential and pathologist review. Please do flow cytometry if > 12% lymphocytes Performed By: #### B ALC ####[facility] (DEFAULT)[address] [place] [address], [place] [address] Bal comments Correlation with microbiology stains and cultures is recommended. Normal [facility] Comment on above: Order Comment: BAL c onsult for cell differential and pathologist review. Please do flow cytometry if > 12% lymphocytes Performed By: #### B ALC ####[facility] (DEFAULT)[address] [place] [address], [place] [address] Bal Diff Quik Stain Quality Check Acceptable Normal [facility] Comment on above: Order Comment: BAL c onsult for cell differential and pathologist review. Please do flow cytometry if > 12% lymphocytes Performed By: #### B ALC ####[facility] (DEFAULT)[address] [place] [address] Bal Reviewed By: Leonardo Peralta MD [facility] Comment on above: Order Comment: BAL c onsult for cell differential and pathologist review. Please do flow cytometry if > 12% lymphocytes Performed By: #### B ALC ####[facility] (DEFAULT)[address] [facility] [place] [address] BKR BAL INTERPRETATION Cellular specimen comprised of alveolar macrophages and small lymphocytes. No definitive microorganisms are observed. Moderate degenerative changes. Normal [facility] Comment on above: Order Comment: BAL c onsult for cell differential and pathologist review. Please do flow cytometry if > 12% lymphocytes Performed By: #### B ALC ####[facility] (DEFAULT)[address] [place] [address] BKR DX CODE Use Ordering Normal [facility] Comment on above: Order Comment: BAL c onsult for cell differential and pathologist review. Please do flow cytometry if > 12% lymphocytes Performed By: #### B ALC ####[facility] (DEFAULT)[address] [facility] [place] [address] Eosinophils/100 WBC (Bld) 0 % Normal [facility] Comment on above: Order Comment: BAL c onsult for cell differential and pathologist review. Please do flow cytometry if > 12% lymphocytes Performed By: #### B ALC ####[facility] (DEFAULT)[address] [place] [address] Lymphocytes/100 WBC (Bld) 57 % Normal [facility] Comment on above: Order Comment: BAL c onsult for cell differential and pathologist review. Please do flow cytometry if > 12% lymphocytes Performed By: #### B ALC ####[facility] (DEFAULT)[address] [place] [address] Neutrophils/100 WBC (Bld) 11 % Normal [facility] Comment on above: Order Comment: BAL c onsult for cell differential and pathologist review. Please do flow cytometry if > 12% lymphocytes Performed By: #### B ALC ####[facility] (DEFAULT)[address] [place] [address] BRONCHOSCOPYon 09-02-2023 Radiology Study observation (narrative) [facility] Bacteria identified Cx Nom ( Bld)on 09-02-2023 Bacteria identified Cx Nom (Unsp spec) NO GROWTH DAY 5 OF 5 [facility] CBC,PLATELETSon 09-02-2023 Erythrocyte distribution width (RBC) [Ratio] 13.2 % 10.9 - 14.3 % [facility] Hematocrit (Bld) [Volume fraction] 39.9 % 39.6 - 48.8 % [facility] Hemoglobin (Bld) [Mass/Vol] 12.9 g/dL Low 13.4 - 16.8 g/dL [facility] Interpretation and review of laboratory results Abnormal [facility] MCH (RBC) [Entitic mass] 27.9 pg 26.1 - 33.3 pg [facility] MCHC (RBC) [Mass/Vol] 32.3 g/dL 31.9 - 36.5 g/dL [facility] MCV (RBC) [Entitic vol] 86.4 fL 79.0 - 94.5 fL [facility] Platelet mean volume (Bld) [Entitic vol] 9.5 fL 8.7 - 12.3 fL [facility] Platelets (Bld) [#/Vol] 210 10*3/uL 146 - 337 K/uL [facility] RBC (Bld) [#/Vol] 4.62 10*6/uL [facility] WBC (Bld) [#/Vol] 4.12 10*3/uL 3.73 - 10. 10 K/uL [facility] Hematocrit (Bld) [Volume fraction] 39.9 % Normal 39.6-48.8 [facility] Comment on above: Performed By: #### H [facility] ####[facility] (DEFAULT)[address] [place] [address] Hemoglobin (Bld) [Mass/Vol] 12.9 g/dL Low 13.4-16.8 [facility] Comment on above: Performed By: #### H [facility] ####[facility] (DEFAULT)[address] [place] [address] MCV (RBC) [Entitic vol] 86.4 fL Normal 79.0-94.5 [facility] Comment on above: Performed By: #### H [facility] ####[facility] (DEFAULT)[address] [place] [address] Mean Cell Hgb 27.9 pg Normal 26.1-33.3 [facility] Comment on above: Performed By: #### H EMOGC ####[facility] (DEFAULT)[address] [place] [address] Mean Cell Hgb Conc 32.3 g/dL Normal 31.9-36.5 [facility] Comment on above: Performed By: #### H EMOGC ####[facility] (DEFAULT)[address] [place] [address] Platelet mean volume (Bld) [Entitic vol] 9.5 fL Normal 8.7-12.3 [facility] Comment on above: Performed By: #### H EMOGC ####[facility] (DEFAULT)[address] [place] [address] Platelets (Bld) [#/Vol] 210 10*3/uL Normal 146-337 [facility] Comment on above: Performed By: #### H EMOGC ####[facility] (DEFAULT)[address] [place] [address] RBC (Bld) [#/Vol] 4.62 10*6/uL Normal 4.38-5.83 [facility] Comment on above: Performed By: #### H EMOGC ####[facility] (DEFAULT)[address] [place] [address] RBC Distribution 13.2 % Normal 10.9-14.3 [facility] Comment on above: Performed By: #### H EMOGC ####[facility] (DEFAULT)[address] [place] [address] WBC (Bld) [#/Vol] 4.12 10*3/uL Normal 3.73-10.10 [facility] Comment on above: Performed By: #### H EMOGC ####[facility] (DEFAULT)[address] [place] [address] CHEM 7 (LYTES,BUN,CREA,GLUC) on 09-02-2023 Anion gap [Moles/Vol] 13 mmol/L 7 - 17 mmol/L [facility] Chloride [Moles/Vol] 105 mmol/L 98 - 10 8 mmol/L [facility] CO2 [Moles/Vol] 22 mmol/L 21 - 31 mmol/L [facility] Creatinine [Mass/Vol] 1.25 mg/dL 0.70 - 1.30 mg/dL [facility] eGFR, CKD-EPI, Male 69 - [facility]F [facility] Glucose [Mass/Vol] 105 mg/dL High 70 - 99 mg/dL [facility] Osmolality Calc [Osmolality] 287 [facility] Potassium [Moles/Vol] 4.3 mmol/L 3.5 - 5.0 mmol/L [facility] Sodium [Moles/Vol] 136 mmol/L 135 - 145 mmol/L [facility] Urea nitrogen [Mass/Vol] 16 mg/dL 7 - 25 mg/dL [facility] Urea nitrogen/Creatinine [Mass ratio] 13 mg/mg [facility] Anion gap [Moles/Vol] 13 mmol/L Normal 7-17 [facility] Comment on above: Performed By: #### C HM7, HFP, MGO ####[facility] (DEFAULT)[address] [place] [address] Chloride [Moles/Vol] 105 mmol/L Normal 98-108 [facility] Comment on above: Performed By: #### C HM7, HFP, MGO ####[facility] (DEFAULT)[address] [place] [address] CO2 [Moles/Vol] 22 mmol/L Normal 21-31 [facility] Comment on above: Performed By: #### C HM7, HFP, MGO ####[facility] (DEFAULT)[address] [place] [address] Creatinine [Mass/Vol] 1.25 mg/dL Normal 0.70-1.30 [facility] Comment on above: Performed By: #### C TAVO MEDLEY, MGO ####[facility] (DEFAULT)[address] [place] [address] GFR/1.73 sq M.predicted among non-blacks MDRD (S/P/Bld) [Vol rate/Area] 69 mL/min/{1.73_m2} Normal >=60 [facility] Comment on above: Result Comment: Repo rted eGFR is based on the CKD-EPI 2020 equation using creatinine, age, and sex. Performed By: #### C TAVO MEDLEY, MGO ####[facility] (DEFAULT)[address] [facility] [place] [address] Glucose [Mass/Vol] 105 mg/dL High 70-99 [facility] Comment on above: Performed By: #### Chinedu HMJessica, HFP, MGO ####[facility] (DEFAULT)[address] [facility] [place] [address] Osmolality [Osmolality] 287 mosm/kg Normal 278-305 [facility] Comment on above: Performed By: #### Chinedu HMJessica, HFP, MGO ####[facility] (DEFAULT)[address] [place] [address] Potassium [Moles/Vol] 4.3 mmol/L Normal 3.5-5.0 [facility] Comment on above: Performed By: #### Chinedu HM7, HFP, MGO ####[facility] (DEFAULT)[address] [place] [address] Sodium [Moles/Vol] 136 mmol/L Normal 135-145 [facility] Comment on above: Performed By: #### Chinedu HM7, HFP, MGO ####[facility] (DEFAULT)[address] [facility] [place] [address] Urea nitrogen [Mass/Vol] 16 mg/dL Normal 7-25 [facility] Comment on above: Performed By: #### C HM7, HFP, MGO ####[facility] (DEFAULT)[address] [place] [address] Urea nitrogen/Creatinine [Mass ratio] 13 mg/mg Normal [facility] Comment on above: Performed By: #### C HM7, HFP, MGO ####[facility] (DEFAULT)[address] [place] [address] CMV PCR,FLUIDS,URINE,EYE ETC on 09-02-2023 CMV by PCR Result Negative Normal Negative [facility] Comment on above: Result Comment: ---- ADDITIONAL INFORMATION This test was developed and its performance characteristicsdetermined by [facility] in a manner consistent with CLIArViFluxirements. This test has not been cleared or approved bythe U.S. Food and Drug Administration.Test Performed by:[address] Director: Rosendo Bose M.D. Ph.D.; CLIA# [id number] Performed By: #### Y CMV ####[facility] (DEFAULT)[address] [place] [address] CMV BY PCR SOURCE BAL RML Normal [facility] Comment on above: Performed By: #### Y CMV ####[facility] (DEFAULT)[address] [place] [address] CMV by PCR Result Negative Normal Negative [facility] Comment on above: Result Comment: ---- ADDITIONAL INFORMATION This test was developed and its performance characteristicsdetermined by [facility] in a manner consistent with CLIArequirements. This test has not been cleared or approved bythe U.S. Food and Drug Administration.Test Performed by:[place] [id number] Director: Rosendo Bose M.D. Ph.D.; CLIA# [id number] Performed By: #### Y CMV ####[facility] (DEFAULT)[address] [place] [address] CMV BY PCR SOURCE BAL LLL Normal [facility] Comment on above: Performed By: #### Y CMV ####[facility] (DEFAULT)[address] [place] [address] CYTOLOGY, NON-GYNon 09-02-20 23 CYTOLOGIC DIAGNOSIS Normal [facility] Comment on above: Result Comment: A. B RONCHOALVEOLAR LAVAGE, LEFT LOWER LOBE (CYTOLOGY):FINAL DIAGNOSIS:No Malignant Cells Are IdentifiedHypocellular Specimen Performed By: #### N ONJONH ####[facility] (DEFAULT)[address] [place] [address] Case Report [facility] Comment on above: Result Comment: Medi abhishek Cytology Report Case: [id number] Provider: Crow Diaz MD Collected: 09/02/2023 08:38 AMOrdering [facility] Received: 09/02/2023 10:44 AMPathologist: KENTON Caglepecimen: BRONCHOALVEOLAR LAVAGE, LLL BAL Performed By: #### N ONGNGRAEMEFNA ####[facility] (DEFAULT)[address] [place] [address] Clinical History Renal transplant. Normal O [facility] Comment on above: Performed By: #### N ONGNGRAEMEFNA ####[facility] (DEFAULT)[address] [place] [address] Gross Description Normal [facility] Comment on above: Result Comment: LLL BAL1 ml hazy colorless fld unfixed1 TP slide Pap stainFor Immediate Release to Patient's MyChart? Yes Performed By: #### N ONGNNONFNA ####[facility] (DEFAULT)[address] [place] [address] FUNGUS CULTUREon 09-02-2023 Bacteria identified Cx Nom (Unsp spec) Normal [facility] Comment on above: Order Comment: Ident ification was performed on the MALDI-TOF mass spectrometer [employer]. This test was developed by [facility]. It has not been cleared or approved by the FDA. The laboratory is regulated under CLIA as qualified to perform high-complexity testing. This test is used for clinical purposes. It should not be regarded as investigational or for research. Result Comment: Grow sp226Fcn [place] Histoplasma capsulatum Performed By: #### F UN ####[facility] (DEFAULT)[address] [place] [address] Bacteria identified Cx Nom (Unsp spec) NO GROWTH DAY 28 OF 28 Normal [facility] Comment on above: Order Comment: BAL f ungal culture Performed By: #### F UN ####[facility] (DEFAULT)[address] [place] [address] HEPATIC FUNCTION PANELon Albumin [Mass/Vol] 3.2 g/dL Low 3.5 - 5.0 g/dL [facility] ALP [Catalytic activity/Vol] 107 U/L 32 - 126 U/L [facility] ALT [Catalytic activity/Vol] 20 U/L 10 - 52 U/L [facility] AST [Catalytic activity/Vol] 31 U/L 10 - 39 U/L [facility] Bilirubin [Mass/Vol] 1.0 mg/dL [facility] - 1.5 mg/dL [facility] Bilirubin.direct [Mass/Vol] 0.3 mg/dL High NINF - 0.3 mg/dL [facility] Protein [Mass/Vol] 6.6 g/dL 6.4 - 8.3 g/dL [facility] Albumin [Mass/Vol] 3.2 g/dL Low 3.5-5.0 [facility] Comment on above: Performed By: #### C HM7, HFP, MGO ####[facility] (DEFAULT)[address] [place] [address] ALP [Catalytic activity/Vol] 107 U/L Normal 32-126 [facility] Comment on above: Performed By: #### C HM7, HFP, MGO ####[facility] (DEFAULT)[address] [place] [address] ALT [Catalytic activity/Vol] 20 U/L Normal 10-52 [facility] Comment on above: Performed By: #### C HM7, HFP, MGO ####[facility] (DEFAULT)[address] [place] [address] AST [Catalytic activity/Vol] 31 U/L Normal 10-39 [facility] Comment on above: Performed By: #### C HM7, HFP, MGO ####[facility] (DEFAULT)[address] [place] [address] Bilirubin [Mass/Vol] 1.0 mg/dL Normal <1.5 [facility] Comment on above: Performed By: #### C HM7, HFP, MGO ####[facility] (DEFAULT)[address] [place] [address] Bilirubin.indirect [Mass/Vol] 0.3 mg/dL High <0.3 [facility] Comment on above: Performed By: #### C HM7, HFP, MGO ####[facility] (DEFAULT)[address] [place] [address] Protein [Mass/Vol] 6.6 g/dL Normal 6.4-8.3 [facility] Comment on above: Performed By: #### C HM7, HFP, MGO ####[facility] (DEFAULT)[address] [place] [address] HISTOPLASMA ANTIGEN, FLUIDon 09-02-2023 FH SOURCE BAL RML Normal [facility] Comment on above: Performed By: #### Y ST ####[facility] (DEFAULT)[address] [place] [address] Histo FLD interpretation Negative Normal [facility] Comment on above: Result Comment: ---- ADDITIONAL INFORMATION Reference interval: None DetectedReportable Range: Positive Results reported in ng/mL from0.20 ng/mL to 20.00 ng/mLPositive Results above 20.00 ng/mL are reported as 'Abovethe Limit of Quantification'Cross-reactions occur with Blastomyces spp., Coccidioidesspp., and Paracoccidioides brasiliensis.This test was developed and its performance characteristicsdetermined by [employer]. It has not beencleared or approved by the FDA; however, FDA clearance orapproval is not currently required for clinical use. Theresults are not intended to be used as the sole means forclinical diagnosis or patient management decisions.Test Performed by:[employer] [place] [address] [place] [address] Performed By: #### Y ST ####[facility] (DEFAULT)[address] [place] [address] Histoplasma Antigen, FLUID Not detected Normal [facility] Comment on above: Performed By: #### Y FHST ####[facility] (DEFAULT)[address] [place] [address] HISTOPLASMA ANTIGEN,URINEon 09-02-2023 H. capsulatum Ag (U) [Mass/Vol] Not detected ng/mL [facility] H. capsulatum Ag IA Ql (U) Not detected Not Detected [facility] HISTOPLASMA CAPSULATUM/BLAST OMYCES SPECIES,PCR FLUIDon 09-02-2023 HISTO/BLASTO RESULT Negative Normal Not Applicable [facility] Comment on above: Result Comment: A Ne gative result from BAL fluid does not rule out thepresence of Histoplasma capsulatum because the sensitivity from this source is suboptimal. ADDITIONAL INFORMATION This test was developed and its performance characteristicsdetermined by [facility] in a manner consistent with CLIArequirements. This test has not been cleared or approved bythe U.S. Food and Drug Administration.Test Performed by:[place] [id number] Director: Rosendo Bose M.D. Ph.D.; CLIA# [id number] Performed By: #### Y HBRP ####[facility] (DEFAULT)[address] [place] [address] Source BAL RML Normal [facility] Comment on above: Performed By: #### Y HBRP ####[facility] (DEFAULT)[address] [place] [address] HIV 1 AND 2 ANTIBODIES/P24 A NTIGENOrdered By: Wilma Luque on 09-02-2023 HIV 1+2 Ab+HIV1 p24 Ag IA Ql Non-Reactive Non Reactive [facility] Interpretation and review of laboratory results Normal [facility] HIV 1 AND 2 ANTIBODIES/P24 A NTIGENon 09-02-2023 HIV-1/HIV-2 Ab With p24 Antigen Non-Reactive Normal Non Reactive [facility] Comment on above: Performed By: #### L EHIWIZ32 ####[facility] (DEFAULT)[address] [place] [address] LEGIONELLA CULTUREon 023 Bacteria identified Cx Nom (Unsp spec) NO GROWTH DAY 7 OF 7 Normal [facility] Comment on above: Performed By: #### L EGN ####[facility] (DEFAULT)[address] [place] [address] Bacteria identified Cx Nom (Unsp spec) NO GROWTH DAY 7 OF 7 Normal [facility] Comment on above: Order Comment: BAL l egionella culture Performed By: #### L EGN ####[facility] (DEFAULT)[address] [place] [address] LEGIONELLA PCRon 09-02-2023 Legionella species, Culture BAL RML Normal [facility] Comment on above: Performed By: #### Y LEGRP ####[facility] (DEFAULT)[address] [place] [address] Legionella, pcr result Negative Normal Not Applicable [facility] Comment on above: Result Comment: ---- ADDITIONAL INFORMATION This test was developed and its performance characteristicsdetermined by [facility] in a manner consistent with CLIArequirements. This test has not been cleared or approved bythe U.S. Food and Drug Administration.Test Performed by:[address] Director: Rosendo Bose M.D. Ph.D.; CLIA# [id number] Performed By: #### Y LEGRP ####[facility] (DEFAULT)[address] [facility] [place] [address] LOWER RESPIRATORY CULTURE, B ACTERIALon 09-02-2023 Bacteria identified Cx Nom (Unsp spec) NO GROWTH DAY 2 OF 2 Normal [facility] Comment on above: Performed By: #### R ES ####[facility] (DEFAULT)[address] [place] [address] Microscopic observation Gram stain Nom (Unsp spec) Normal [facility] Comment on above: Result Comment: Cyto centrifuge preparationNeutrophils, RareRed Blood Cells PresentNo organisms seen Performed By: #### R ES ####[facility] (DEFAULT)[address] [facility] [place] [address] Bacteria identified Cx Nom (Unsp spec) NO GROWTH DAY 2 OF 2 Normal [facility] Comment on above: Order Comment: BAL b acterial respiratory culture Performed By: #### R ES ####[facility] (DEFAULT)[address] [place] [address] Microscopic observation Gram stain Nom (Unsp spec) Normal [facility] Comment on above: Order Comment: BAL b acterial respiratory culture Result Comment: Cyto centrifuge preparationNeutrophils, ModerateRed Blood Cells PresentNo organisms seen Performed By: #### R ES ####[facility] (DEFAULT)[address] [place] [address] MAGNESIUMon 09-02-2023 Interpretation and review of laboratory results Normal [facility] Magnesium [Mass/Vol] 1.7 mg/dL 1.6 - 2 .6 mg/dL [facility] Magnesium [Mass/Vol] 1.7 mg/dL Normal 1.6-2.6 [facility] Comment on above: Performed By: #### C HM7, HFP, MGO ####[facility] (DEFAULT)[address] [place] [address] No Panel Informationon 09-02 Interpretation and review of laboratory results Abnormal [facility] PNEUMOCYSTIS JIROVECI,PCRon 09-02-2023 PN Report Status DNR Normal [facility] Comment on above: Performed By: #### Y PNRP ####[facility] (DEFAULT)[address] [place] [address] PN Specimen Source BAL RML Normal [facility] Comment on above: Performed By: #### Y PNRP ####[facility] (DEFAULT)[address] [place] [address] Pneum jiroveci comment DNR Normal [facility] Comment on above: Performed By: #### Y PNRP ####[facility] (DEFAULT)[address] [place] [address] Pneumocystis jiroveci,PCR result Negative Normal Not Applicable [facility] Comment on above: Result Comment: ---- ADDITIONAL INFORMATION This test was developed and its performance characteristicsdetermined by [facility] in a manner consistent with CLIArequirements. This test has not been cleared or approved bythe U.S. Food and Drug Administration.Test Performed by:[address] [address] Director: Rosendo Bose M.D. Ph.D.; CLIA# [id number] Performed By: #### Y PNRP ####[facility] (DEFAULT)[address] [place] [address] PN Report Status DNR Normal [facility] Comment on above: Performed By: #### Y PNRP ####[facility] (DEFAULT)[address] [place] [address] PN Specimen Source BAL LLL Normal [facility] Comment on above: Performed By: #### Y PNRP ####[facility] (DEFAULT)[address] [place] [address] Pneum jiroveci comment DNR Normal [facility] Comment on above: Performed By: #### Y PNRP ####[facility] (DEFAULT)[address] [place] [address] Pneumocystis jiroveci,PCR result Negative Normal Not Applicable [facility] Comment on above: Result Comment: ---- ADDITIONAL INFORMATION This test was developed and its performance characteristicsdetermined by [facility] in a manner consistent with CLIArViFluxirements. This test has not been cleared or approved bythe U.S. Food and Drug Administration.Test Performed by:[address] [address] Director: Rosendo Bose M.D. Ph.D.; CLIA# [id number] Performed By: #### Y PNRP ####[facility] (DEFAULT)[address] [place] [address] TACROLIMUS LEVEL, TROUGH (NC E DRUG LEVEL)on 09-02-2023 Interpretation and review of laboratory results Normal [facility] Tacrolimus (Bld) [Mass/Vol] 4.2 ng/mL [facility] Tacrolimus, Trough 4.2 ng/mL Normal Bone Susana ow Transplant: 4.0-12.0, Therapeutic: 5.0-15.0 [facility] Comment on above: Order Comment: Pleas e draw at specified interval PRIOR to dose. Do not hold dose to wait for level. Specimens batched twice per day, (M-) and once per day weekendsMethod performed is a chemiluminescent microparticle immunoasssay on the [employer] i2000.The range is based on experience at [facility] and users should be aware that target concentrations vary widely depending on concomitant therapy, time post-transplant, and desired degree of immunosuppression. Performed By: #### T ACRO ####[facility] (DEFAULT)[address] [place] [address] CBC,PLATELETSon 09-01-2023 Erythrocyte distribution width (RBC) [Ratio] 13.4 % 10.9 - 14.3 % [facility] Hematocrit (Bld) [Volume fraction] 38.9 % Low 39.6 - 48.8 % [facility] Hemoglobin (Bld) [Mass/Vol] 12.7 g/dL Low 13.4 - 16.8 g/dL [facility] Interpretation and review of laboratory results Abnormal [facility] MCH (RBC) [Entitic mass] 27.6 pg 26.1 - 33.3 pg [facility] MCHC (RBC) [Mass/Vol] 32.6 g/dL 31.9 - 36.5 g/dL [facility] MCV (RBC) [Entitic vol] 84.6 fL 79.0 - 94.5 fL [facility] Platelet mean volume (Bld) [Entitic vol] 9.4 fL 8.7 - 12.3 fL [facility] Platelets (Bld) [#/Vol] 209 10*3/uL 146 - 337 K/uL [facility] RBC (Bld) [#/Vol] 4.60 10*6/uL [facility] WBC (Bld) [#/Vol] 4.41 10*3/uL 3.73 - 10. 10 K/uL [facility] Hematocrit (Bld) [Volume fraction] 38.9 % Low 39.6-48.8 [facility] Comment on above: Performed By: #### H EMOGC ####[facility] (DEFAULT)[address] [place] [address] Hemoglobin (Bld) [Mass/Vol] 12.7 g/dL Low 13.4-16.8 [facility] Comment on above: Performed By: #### H EMOGC ####[facility] (DEFAULT)[address] [place] [address] MCV (RBC) [Entitic vol] 84.6 fL Normal 79.0-94.5 [facility] Comment on above: Performed By: #### H EMOGC ####[facility] (DEFAULT)[address] [place] [address] Mean Cell Hgb 27.6 pg Normal 26.1-33.3 [facility] Comment on above: Performed By: #### H EMOGC ####[facility] (DEFAULT)[address] [place] [address] Mean Cell Hgb Conc 32.6 g/dL Normal 31.9-36.5 [facility] Comment on above: Performed By: #### H EMOGC ####[facility] (DEFAULT)[address] [place] [address] Platelet mean volume (Bld) [Entitic vol] 9.4 fL Normal 8.7-12.3 [facility] Comment on above: Performed By: #### H EMOGC ####[facility] (DEFAULT)[address] [place] [address] Platelets (Bld) [#/Vol] 209 10*3/uL Normal 146-337 [facility] Comment on above: Performed By: #### H [facility] ####[facility] (DEFAULT)[address] [place] [address] RBC (Bld) [#/Vol] 4.60 10*6/uL Normal 4.38-5.83 [facility] Comment on above: Performed By: #### H [facility] ####[facility] (DEFAULT)[address] [place] [address] RBC Distribution 13.4 % Normal 10.9-14.3 [facility] Comment on above: Performed By: #### H [facility] ####[facility] (DEFAULT)[address] [place] [address] WBC (Bld) [#/Vol] 4.41 10*3/uL Normal 3.73-10.10 [facility] Comment on above: Performed By: #### H [facility] ####[facility] (DEFAULT)[address] [place] [address] CHEM 7 (LYTES,BUN,CREA,GLUC) on 09-01-2023 Anion gap [Moles/Vol] 14 mmol/L 7 - 17 mmol/L [facility] Chloride [Moles/Vol] 103 mmol/L 98 - 10 8 mmol/L [facility] CO2 [Moles/Vol] 21 mmol/L 21 - 31 mmol/L [facility] Creatinine [Mass/Vol] 1.16 mg/dL 0.70 - 1.30 mg/dL [facility] eGFR, CKD-EPI, Male 76 - PINF [facility] Glucose [Mass/Vol] 117 mg/dL High 70 - 99 mg/dL [facility] Osmolality Calc [Osmolality] 285 [facility] Potassium [Moles/Vol] 4.2 mmol/L 3.5 - 5.0 mmol/L [facility] Sodium [Moles/Vol] 134 mmol/L Low 135 - 145 mmol/L [facility] Urea nitrogen [Mass/Vol] 18 mg/dL 7 - 25 mg/dL [facility] Urea nitrogen/Creatinine [Mass ratio] 16 mg/mg [facility] Anion gap [Moles/Vol] 14 mmol/L Normal 7-17 [facility] Comment on above: Performed By: #### H FP, MGO, CHM7 ####[facility] (DEFAULT)[address] [place] [address] Chloride [Moles/Vol] 103 mmol/L Normal 98-108 [facility] Comment on above: Performed By: #### H FP, MGO, CHM7 ####[facility] (DEFAULT)[address] [place] [address] CO2 [Moles/Vol] 21 mmol/L Normal 21-31 [facility] Comment on above: Performed By: #### H FP, MGO, CHM7 ####[facility] (DEFAULT)[address] [place] [address] Creatinine [Mass/Vol] 1.16 mg/dL Normal 0.70-1.30 [facility] Comment on above: Performed By: #### H FP, MGO, CHM7 ####[facility] (DEFAULT)[address] [place] [address] GFR/1.73 sq M.predicted among non-blacks MDRD (S/P/Bld) [Vol rate/Area] 76 mL/min/{1.73_m2} Normal >=60 [facility] Comment on above: Result Comment: Repo rted eGFR is based on the CKD-EPI 2020 equation using creatinine, age, and sex. Performed By: #### H FP, MGO, CHM7 ####[facility] (DEFAULT)[address] [place] [address] Glucose [Mass/Vol] 117 mg/dL High 70-99 [facility] Comment on above: Performed By: #### H ANTWAN MGO CHM7 ####[facility] (DEFAULT)[address] [facility] [place] [address] Osmolality [Osmolality] 285 mosm/kg Normal 278-305 [facility] Comment on above: Performed By: #### H ANTWAN MGO CHM7 ####[facility] (DEFAULT)[address] [facility] [place] [address] Potassium [Moles/Vol] 4.2 mmol/L Normal 3.5-5.0 [facility] Comment on above: Performed By: #### H ANTWAN MGO, CHM7 ####[facility] (DEFAULT)[address] [facility] [place] [address] Sodium [Moles/Vol] 134 mmol/L Low 135-145 [facility] Comment on above: Performed By: #### H ANTWAN MGO, CHM7 ####[facility] (DEFAULT)[address] [facility] [place] [address] Urea nitrogen [Mass/Vol] 18 mg/dL Normal 7-25 [facility] Comment on above: Performed By: #### Lydia MONCADA MGO, CHM7 ####[facility] (DEFAULT)[address] [facility] [place] [address] Urea nitrogen/Creatinine [Mass ratio] 16 mg/mg Normal [facility] Comment on above: Performed By: #### H FP MGO, CHM7 ####[facility] (DEFAULT)[address] [place] [address] CRYPTOCOCCAL ANTIGENon 09-01 Cryptococcus sp Ag Ql (S) Negative Negative [facility] Interpretation and review of laboratory results Normal [facility] Cryptococcus Antigen,Serum Negative Normal Negative [facility] Comment on above: Performed By: #### C RAG ####[facility] (DEFAULT)[address] [place] [address] HEPATIC FUNCTION PANELon Albumin [Mass/Vol] 3.3 g/dL Low 3.5 - 5.0 g/dL [facility] ALP [Catalytic activity/Vol] 112 U/L 32 - 126 U/L [facility] ALT [Catalytic activity/Vol] 21 U/L 10 - 52 U/L [facility] AST [Catalytic activity/Vol] 29 U/L 10 - 39 U/L [facility] Bilirubin [Mass/Vol] 1.0 mg/dL NINF - 1.5 mg/dL [facility] Bilirubin.direct [Mass/Vol] 0.2 mg/dL NINF - 0.3 mg/dL [facility] Protein [Mass/Vol] 6.8 g/dL 6.4 - 8.3 g/dL [facility] Albumin [Mass/Vol] 3.3 g/dL Low 3.5-5.0 [facility] Comment on above: Performed By: #### H ANTWAN MGO CHM7 ####[facility] (DEFAULT)[address] [place] [address] ALP [Catalytic activity/Vol] 112 U/L Normal 32-126 [facility] Comment on above: Performed By: #### H FP MGO CHM7 ####[facility] (DEFAULT)[address] [place] [address] ALT [Catalytic activity/Vol] 21 U/L Normal 10-52 [facility] Comment on above: Performed By: #### H FP MGO, CHM7 ####[facility] (DEFAULT)[address] [place] [address] AST [Catalytic activity/Vol] 29 U/L Normal 10-39 [facility] Comment on above: Performed By: #### H FP, MGO, CHM7 ####[facility] (DEFAULT)[address] [place] [address] Bilirubin [Mass/Vol] 1.0 mg/dL Normal <1.5 [facility] Comment on above: Performed By: #### H DOMENICA MONCADA CHM7 ####[facility] (DEFAULT)[address] [place] [address] Bilirubin.indirect [Mass/Vol] 0.2 mg/dL Normal <0.3 [facility] Comment on above: Performed By: #### H DOMENICA MONCADA CHM7 ####[facility] (DEFAULT)[address] [place] [address] Protein [Mass/Vol] 6.8 g/dL Normal 6.4-8.3 [facility] Comment on above: Performed By: #### H DOMENICA MONCADA CHM7 ####[facility] (DEFAULT)[address] [place] [address] L. pneumophila 1 Ag IA Ql (U )Ordered By: Carolin Miles on 09-01-2023 Interpretation and review of laboratory results Normal [facility] LEGIONELLA URINARY AGOrdered By: Carolin Miles on 09-01-2023 L. pneumophila 1 Ag IA Ql (U) Negative Negative [facility] MAGNESIUMon 09-01-2023 Interpretation and review of laboratory results Normal [facility] Magnesium [Mass/Vol] 1.6 mg/dL 1.6 - 2 .6 mg/dL [facility] Magnesium [Mass/Vol] 1.6 mg/dL Normal 1.6-2.6 [facility] Comment on above: Performed By: #### H DOMENICA MONCADA CHM7 ####[facility] (DEFAULT)[address] [place] [address] No Panel Informationon 09-01 Interpretation and review of laboratory results Abnormal [facility] PARVOVIRUS (B19) DNA, PCR, B LOODon 09-01-2023 PARVOVIRUS B19 BY RAPID PCR Not detected Normal Not Detected [facility] Comment on above: Result Comment: The primers/probe used in this assay will detectparvovirus B19 and V9 (genotypes 1 # 3) but maynot detect parvovirus genotype 2. The majority ofcirculating Parvovirus B19 strains in the [facility] are genotype 1. Genotype 2 is not believed tocirculate widely in the [facility], but has beenassociated with similar clinical features as genotype1. Genotype 3 is most prevalent in some [place] [facility] [place].This test was developed and its analyticalperformance characteristics have been determinedby [facility], [place], [place].It has not been cleared or approved by the FDA. Thisassay has been validated pursuant to the CLIAregulations and is used for clinical purposes.Test Performed at:[facility] [place] [address]BawzinrRamon Benavides M.D., Ph.D.,Director of Laboratories Performed By: #### Y PRVP ####[facility] (DEFAULT)[address] [place] [address] NC SPEC SOURCE Whole Blood Normal [facility] Comment on above: Performed By: #### Y PRVP ####[facility] (DEFAULT)[address] [place] [address] ASPERGILLUS (GALACTOMANNAN), ANTIGENon 08-31-2023 Aspergillus Antigen <0.500 Normal <0.5 [facility] Comment on above: Result Comment: ---- ADDITIONAL INFORMATION This is a qualitative test and the resulted index value isnot indicative of disease severity. Serial testing isrecommended for patients at high risk for invasiveaspergillosis.This assay was performed using the FDA-cleared [employer] Aspergillus Galactomannan EIA.Test Performed by:[facility] - [address] [address] Director: Rosendo Bose M.D. Ph.D.; CLIA# [id number] Performed By: #### Y ASPR ####[facility] (DEFAULT)[address] [place] [address] CBC,PLATELETSon 08-31-2023 Erythrocyte distribution width (RBC) [Ratio] 13.3 % 10.9 - 14.3 % [facility] Hematocrit (Bld) [Volume fraction] 39.4 % Low 39.6 - 48.8 % [facility] Hemoglobin (Bld) [Mass/Vol] 12.8 g/dL Low 13.4 - 16.8 g/dL [facility] Interpretation and review of laboratory results Abnormal [facility] MCH (RBC) [Entitic mass] 27.6 pg 26.1 - 33.3 pg [facility] MCHC (RBC) [Mass/Vol] 32.5 g/dL 31.9 - 36.5 g/dL [facility] MCV (RBC) [Entitic vol] 85.1 fL 79.0 - 94.5 fL [facility] Platelet mean volume (Bld) [Entitic vol] 9.6 fL 8.7 - 12.3 fL [facility] Platelets (Bld) [#/Vol] 228 10*3/uL 146 - 337 K/uL [facility] RBC (Bld) [#/Vol] 4.63 10*6/uL [facility] WBC (Bld) [#/Vol] 4.77 10*3/uL 3.73 - 10. 10 K/uL [facility] Hematocrit (Bld) [Volume fraction] 39.4 % Low 39.6-48.8 [facility] Comment on above: Performed By: #### H EMO ####[facility] (DEFAULT)[address] [place] [address] Hemoglobin (Bld) [Mass/Vol] 12.8 g/dL Low 13.4-16.8 [facility] Comment on above: Performed By: #### H EMO ####[facility] (DEFAULT)[address] [place] [address] MCV (RBC) [Entitic vol] 85.1 fL Normal 79.0-94.5 [facility] Comment on above: Performed By: #### H EMOGC ####[facility] (DEFAULT)[address] [place] [address] Mean Cell Hgb 27.6 pg Normal 26.1-33.3 [facility] Comment on above: Performed By: #### H EMOGC ####[facility] (DEFAULT)[address] [facility] [place] [address] Mean Cell Hgb Conc 32.5 g/dL Normal 31.9-36.5 [facility] Comment on above: Performed By: #### H EMOGC ####[facility] (DEFAULT)[address] [facility] [place] [address] Platelet mean volume (Bld) [Entitic vol] 9.6 fL Normal 8.7-12.3 [facility] Comment on above: Performed By: #### H EMOGC ####[facility] (DEFAULT)[address] [facility] [place] [address] Platelets (Bld) [#/Vol] 228 10*3/uL Normal 146-337 [facility] Comment on above: Performed By: #### H EMOGC ####[facility] (DEFAULT)[address] [facility] [place] [address] RBC (Bld) [#/Vol] 4.63 10*6/uL Normal 4.38-5.83 [facility] Comment on above: Performed By: #### H EMOGC ####[facility] (DEFAULT)[address] [facility] [place] [address] RBC Distribution 13.3 % Normal 10.9-14.3 [facility] Comment on above: Performed By: #### H EMOGC ####[facility] (DEFAULT)[address] [facility] [place] [address] WBC (Bld) [#/Vol] 4.77 10*3/uL Normal 3.73-10.10 [facility] Comment on above: Performed By: #### H [facility] ####[facility] (DEFAULT)[address] [place] [address] CHEM 7 (LYTES,BUN,CREA,GLUC) on 08-31-2023 Anion gap [Moles/Vol] 13 mmol/L 7 - 17 mmol/L [facility] Chloride [Moles/Vol] 102 mmol/L 98 - 10 8 mmol/L [facility] CO2 [Moles/Vol] 23 mmol/L 21 - 31 mmol/L [facility] Creatinine [Mass/Vol] 1.37 mg/dL High 0.70 - 1.30 mg/dL [facility] eGFR, CKD-EPI, Male 62 - PINF [facility] Glucose [Mass/Vol] 112 mg/dL High 70 - 99 mg/dL [facility] Osmolality Calc [Osmolality] 284 [facility] Potassium [Moles/Vol] 4.4 mmol/L 3.5 - 5.0 mmol/L [facility] Sodium [Moles/Vol] 134 mmol/L Low 135 - 145 mmol/L [facility] Urea nitrogen [Mass/Vol] 16 mg/dL 7 - 25 mg/dL [facility] Urea nitrogen/Creatinine [Mass ratio] 12 mg/mg [facility] Anion gap [Moles/Vol] 13 mmol/L Normal 7-17 [facility] Comment on above: Performed By: #### M MERLE HFP, FERIB, PROCAL, CHM7 ####[facility] (DEFAULT)[address] [place] [address] Chloride [Moles/Vol] 102 mmol/L Normal 98-108 [facility] Comment on above: Performed By: #### M GO, HFP, FERIB, PROCAL, CHM7 ####[facility] (DEFAULT)[address] [place] [address] CO2 [Moles/Vol] 23 mmol/L Normal 21-31 [facility] Comment on above: Performed By: #### M GO, HFP, FERIB, PROCAL, CHM7 ####[facility] (DEFAULT)[address] [place] [address] Creatinine [Mass/Vol] 1.37 mg/dL High 0.70-1.30 [facility] Comment on above: Performed By: #### M GO, HFP, FERIB, PROCAL, CHM7 ####[facility] (DEFAULT)[address] [place] [address] GFR/1.73 sq M.predicted among non-blacks MDRD (S/P/Bld) [Vol rate/Area] 62 mL/min/{1.73_m2} Normal >=60 [facility] Comment on above: Result Comment: Repo rted eGFR is based on the CKD-EPI 2020 equation using creatinine, age, and sex. Performed By: #### M GO, HFP, FERIB, PROCAL, CHM7 ####[facility] (DEFAULT)[address] [place] [address] Glucose [Mass/Vol] 112 mg/dL High 70-99 [facility] Comment on above: Performed By: #### M GO, HFP, FERIB, PROCAL, CHM7 ####[facility] (DEFAULT)[address] [place] [address], [place] [address] Osmolality [Osmolality] 284 mosm/kg Normal 278-305 [facility] Comment on above: Performed By: #### M GO, HFP, FERIB, PROCAL, CHM7 ####[facility] (DEFAULT)[address] [place] [address] Potassium [Moles/Vol] 4.4 mmol/L Normal 3.5-5.0 [facility] Comment on above: Performed By: #### M GO, HFP, FERIB, PROCAL, CHM7 ####[facility] (DEFAULT)[address] [place] [address] Sodium [Moles/Vol] 134 mmol/L Low 135-145 [facility] Comment on above: Performed By: #### M GO, HFP, FERIB, PROCAL, CHM7 ####[facility] (DEFAULT)[address] [place] [address] Urea nitrogen [Mass/Vol] 16 mg/dL Normal 7-25 [facility] Comment on above: Performed By: #### M GO, HFP, FERIB, PROCAL, CHM7 ####[facility] (DEFAULT)[address] [facility] [place] [address] Urea nitrogen/Creatinine [Mass ratio] 12 mg/mg Normal [facility] Comment on above: Performed By: #### M GO, HFP, FERIB, PROCAL, CHM7 ####[facility] (DEFAULT)[address] [facility] [place] [address] [place] ABDOMEN/PELVIS WITHOUT CO NTRASTon 08-31-2023 CT ABDOMEN/PELVIS WITHOUT CONTRAST Normal [facility] CT Abdomen and Pelvis WO con traston 08-31-2023 RADIOLOGY RADIOLOGY [facility] Radiology Study observation (narrative) [facility] CT Abdomen and Pelvis WO con trastOrdered By: Chavez Larkin on 08-31-2023 [facility] Work Phone: CT CHEST WITHOUT CONTRASTon 08-31-2023 CT CHEST WITHOUT CONTRAST Normal [facility] CT Chest WO contraston 08-31 RADIOLOGY RADIOLOGY [facility] Radiology Study observation (narrative) [facility] CT Chest WO contrastOrdered By: Daisha Patterson on 08-31-2023 [facility] Work Phone: FERRITINon 08-31-2023 Ferritin [Mass/Vol] 409.0 ng/mL High 10.5 - 3 07.3 ng/mL [facility] Interpretation and review of laboratory results Abnormal [facility] Ferritin [Mass/Vol] 409.0 ng/mL High 10.5-307.3 [facility] Comment on above: Performed By: #### M GO, HFP, FERIB, PROCAL, CHM7 ####[facility] (DEFAULT)[address] [place] [address] HEPATIC FUNCTION PANELon Albumin [Mass/Vol] 3.3 g/dL Low 3.5 - 5.0 g/dL [facility] ALP [Catalytic activity/Vol] 113 U/L 32 - 126 U/L [facility] ALT [Catalytic activity/Vol] 25 U/L 10 - 52 U/L [facility] AST [Catalytic activity/Vol] 31 U/L 10 - 39 U/L [facility] Bilirubin [Mass/Vol] 1.1 mg/dL [facility] - 1.5 mg/dL [facility] Bilirubin.direct [Mass/Vol] 0.3 mg/dL High NINF - 0.3 mg/dL [facility] Protein [Mass/Vol] 7.0 g/dL 6.4 - 8.3 g/dL [facility] Albumin [Mass/Vol] 3.3 g/dL Low 3.5-5.0 [facility] Comment on above: Performed By: #### M GO, HFP, FERIB, PROCAL, CHM7 ####[facility] (DEFAULT)[address] [place] [address] ALP [Catalytic activity/Vol] 113 U/L Normal 32-126 [facility] Comment on above: Performed By: #### M GO, HFP, FERIB, PROCAL, CHM7 ####[facility] (DEFAULT)[address] [place] [address] ALT [Catalytic activity/Vol] 25 U/L Normal 10-52 [facility] Comment on above: Performed By: #### M GO, HFP, FERIB, PROCAL, CHM7 ####[facility] (DEFAULT)[address] [place] [address] AST [Catalytic activity/Vol] 31 U/L Normal 10-39 [facility] Comment on above: Performed By: #### M GO, HFP, FERIB, PROCAL, CHM7 ####[facility] (DEFAULT)[address] [place] [address] Bilirubin [Mass/Vol] 1.1 mg/dL Normal <1.5 [facility] Comment on above: Performed By: #### M GO, HFP, FERIB, PROCAL, CHM7 ####[facility] (DEFAULT)[address] [facility] [place] [address] Bilirubin.indirect [Mass/Vol] 0.3 mg/dL High <0.3 [facility] Comment on above: Performed By: #### M GO, HFP, FERIB, PROCAL, CHM7 ####[facility] (DEFAULT)[address] [facility] [place] [address] Protein [Mass/Vol] 7.0 g/dL Normal 6.4-8.3 [facility] Comment on above: Performed By: #### M GO, HFP, FERIB, PROCAL, CHM7 ####[facility] (DEFAULT)[address] [place] [address] LEGIONELLA URINARY AGon 10- Legionella Urinary Antigen Negative Normal Negative [facility] Comment on above: Performed By: #### L EGION ####[facility] (DEFAULT)[address] [facility] [place] [address] MAGNESIUMon 08-31-2023 Interpretation and review of laboratory results Normal [facility] Magnesium [Mass/Vol] 1.7 mg/dL 1.6 - 2 .6 mg/dL [facility] Magnesium [Mass/Vol] 1.7 mg/dL Normal 1.6-2.6 [facility] Comment on above: Performed By: #### M GO, HFP, FERIB, PROCAL, CHM7 ####[facility] (DEFAULT)[address] [place] [address] No Panel Informationon 08-31 Interpretation and review of laboratory results Abnormal [facility] PROCALCITONINon 08-31-2023 Interpretation and review of laboratory results Normal [facility] Procalcitonin [Mass/Vol] 0.23 ng/mL NINF - 0.50 ng/mL [facility] Procalcitonin 0.23 ng/mL Normal <0.50 [facility] Comment on above: Result Comment: Proc [...] and trend procalcitonin in various clinical settings. [email or web address] common cutoffs associated with bacterial infections are as follows.Respiratory tract infections: >0.25 ng/mLSepsis/septic shock: >0.5 ng/mLProcalcitonin should not be used alone as a diagnostic tool, however. All procalcitonin results should be interpreted in association with the patients clinical condition and all laboratory findings. Performed By: #### M GO, HFP, FERIB, PROCAL, CHM7 ####[facility] (DEFAULT)[address] [place] [address] TACROLIMUS LEVEL, TROUGH (NC E DRUG LEVEL)Ordered By: Yanira Marcum on 08-31-2023 Interpretation and review of laboratory results Normal [facility] Tacrolimus (Bld) [Mass/Vol] 5.9 ng/mL [facility] TACROLIMUS LEVEL, TROUGH (NC E DRUG LEVEL)on 08-31-2023 Tacrolimus, Trough 5.9 ng/mL Normal [facility] Susana ow Transplant: 4.0-12.0, Therapeutic: 5.0-15.0 [facility] Comment on above: Order Comment: Pleas e draw at specified interval PRIOR to dose. Do not hold dose to wait for level. Specimens batched twice per day, (M-F) and once per day weekendsMethod performed is a chemiluminescent microparticle immunoasssay on the [employer] i2000.The range is based on experience at [facility] and users should be aware that target concentrations vary widely depending on concomitant therapy, time post-transplant, and desired degree of immunosuppression. Performed By: #### T ACRO ####[facility] (DEFAULT)[address] [place] [address] URINE CULTUREOrdered By: Jorge crowe Held on 08-31-2023 Bacteria identified Cx Nom (Unsp spec) No Growth [facility] DARYL AURIS SCREEN BY PCRO rdered By: Mynor Alejandro on 08-30-2023 Daryl auris Screen by PCR Not detected Not Detected [facility] Interpretation and review of laboratory results Normal [facility] CBC,PLATELETSon 08-30-2023 Erythrocyte distribution width (RBC) [Ratio] 13.3 % 10.9 - 14.3 % [facility] Hematocrit (Bld) [Volume fraction] 41.3 % 39.6 - 48.8 % [facility] Hemoglobin (Bld) [Mass/Vol] 13.2 g/dL Low 13.4 - 16.8 g/dL [facility] Interpretation and review of laboratory results Abnormal [facility] MCH (RBC) [Entitic mass] 27.3 pg 26.1 - 33.3 pg [facility] MCHC (RBC) [Mass/Vol] 32.0 g/dL 31.9 - 36.5 g/dL [facility] MCV (RBC) [Entitic vol] 85.5 fL 79.0 - 94.5 fL [facility] Platelet mean volume (Bld) [Entitic vol] 9.2 fL 8.7 - 12.3 fL [facility] Platelets (Bld) [#/Vol] 235 10*3/uL 146 - 337 K/uL [facility] RBC (Bld) [#/Vol] 4.83 10*6/uL [facility] WBC (Bld) [#/Vol] 4.96 10*3/uL 3.73 - 10. 10 K/uL [facility] Hematocrit (Bld) [Volume fraction] 41.3 % Normal 39.6-48.8 [facility] Comment on above: Performed By: #### H EMO ####[facility] (DEFAULT)[address] [place] [address] Hemoglobin (Bld) [Mass/Vol] 13.2 g/dL Low 13.4-16.8 [facility] Comment on above: Performed By: #### H EMO ####[facility] (DEFAULT)[address] [place] [address] MCV (RBC) [Entitic vol] 85.5 fL Normal 79.0-94.5 [facility] Comment on above: Performed By: #### H EMO ####[facility] (DEFAULT)[address] [place] [address] Mean Cell Hgb 27.3 pg Normal 26.1-33.3 [facility] Comment on above: Performed By: #### H EMO ####[facility] (DEFAULT)[address] [place] [address] Mean Cell Hgb Conc 32.0 g/dL Normal 31.9-36.5 [facility] Comment on above: Performed By: #### H EMOGC ####[facility] (DEFAULT)[address] [place] [address] Platelet mean volume (Bld) [Entitic vol] 9.2 fL Normal 8.7-12.3 [facility] Comment on above: Performed By: #### H [facility] ####[facility] (DEFAULT)[address] [place] [address] Platelets (Bld) [#/Vol] 235 10*3/uL Normal 146-337 [facility] Comment on above: Performed By: #### H [facility] ####[facility] (DEFAULT)[address] [place] [address] RBC (Bld) [#/Vol] 4.83 10*6/uL Normal 4.38-5.83 [facility] Comment on above: Performed By: #### H EMO ####[facility] (DEFAULT)[address] [place] [address] RBC Distribution 13.3 % Normal 10.9-14.3 [facility] Comment on above: Performed By: #### H [facility] ####[facility] (DEFAULT)[address] [place] [address] WBC (Bld) [#/Vol] 4.96 10*3/uL Normal 3.73-10.10 [facility] Comment on above: Performed By: #### H [facility] ####[facility] (DEFAULT)[address] [place] [address] CHEM 7 (LYTES,BUN,CREA,GLUC) on 08-30-2023 Anion gap [Moles/Vol] 14 mmol/L 7 - 17 mmol/L [facility] Chloride [Moles/Vol] 102 mmol/L 98 - 10 8 mmol/L [facility] CO2 [Moles/Vol] 20 mmol/L Low 21 - 31 mmol/L [facility] Creatinine [Mass/Vol] 1.56 mg/dL High 0.70 - 1.30 mg/dL [facility] eGFR, CKD-EPI, Male 54 Low - PINF [facility] Glucose [Mass/Vol] 123 mg/dL High 70 - 99 mg/dL [facility] Osmolality Calc [Osmolality] 281 [facility] Potassium [Moles/Vol] 4.3 mmol/L 3.5 - 5.0 mmol/L [facility] Sodium [Moles/Vol] 132 mmol/L Low 135 - 145 mmol/L [facility] Urea nitrogen [Mass/Vol] 16 mg/dL 7 - 25 mg/dL [facility] Urea nitrogen/Creatinine [Mass ratio] 10 mg/mg [facility] Anion gap [Moles/Vol] 14 mmol/L Normal 7-17 [facility] Comment on above: Performed By: #### NATHANIEL RAMÍREZ, HFP ####[facility] (DEFAULT)[address] [place] [address] Chloride [Moles/Vol] 102 mmol/L Normal 98-108 [facility] Comment on above: Performed By: #### NATHANIEL RAMÍREZ, HFP ####[facility] (DEFAULT)[address] [place] [address] CO2 [Moles/Vol] 20 mmol/L Low 21-31 [facility] Comment on above: Performed By: #### NATHANIEL RAMÍREZ, HFP ####[facility] (DEFAULT)[address] [place] [address] Creatinine [Mass/Vol] 1.56 mg/dL High 0.70-1.30 [facility] Comment on above: Performed By: #### NATHANIEL RAMÍREZ, HFP ####[facility] (DEFAULT)[address] [place] [address] GFR/1.73 sq M.predicted among non-blacks MDRD (S/P/Bld) [Vol rate/Area] 53 mL/min/{1.73_m2} Low >=60 [facility] Comment on above: Result Comment: Repo rted eGFR is based on the CKD-EPI 2020 equation using creatinine, age, and sex. Performed By: #### NATHANIEL RAMÍREZ, HFP ####[facility] (DEFAULT)[address] [place] [address] Glucose [Mass/Vol] 123 mg/dL High 70-99 [facility] Comment on above: Performed By: #### NATHANIEL RAMÍREZ, HFP ####[facility] (DEFAULT)[address] [place] [address] Osmolality [Osmolality] 281 mosm/kg Normal 278-305 [facility] Comment on above: Performed By: #### NATHANIEL RAMÍREZ, HFP ####[facility] (DEFAULT)[address] [place] [address] Potassium [Moles/Vol] 4.3 mmol/L Normal 3.5-5.0 [facility] Comment on above: Performed By: #### NATHANIEL RAMÍREZ, HFP ####[facility] (DEFAULT)[address] [place] [address] Sodium [Moles/Vol] 132 mmol/L Low 135-145 [facility] Comment on above: Performed By: #### NATHANIEL RAMÍREZ, HFP ####[facility] (DEFAULT)[address] [place] [address] Urea nitrogen [Mass/Vol] 16 mg/dL Normal 7-25 [facility] Comment on above: Performed By: #### NATHANIEL RAMÍREZ, HFP ####[facility] (DEFAULT)[address] [place] [address] Urea nitrogen/Creatinine [Mass ratio] 10 mg/mg Normal [facility] Comment on above: Performed By: #### NATHANIEL RAMÍREZ, HFP ####[facility] (DEFAULT)[address] [place] [address] EXTRA MICROon 08-30-2023 [facility] HEPATIC FUNCTION PANELon Albumin [Mass/Vol] 3.7 g/dL 3.5 - 5.0 g/dL [facility] ALP [Catalytic activity/Vol] 115 U/L 32 - 126 U/L [facility] ALT [Catalytic activity/Vol] 22 U/L 10 - 52 U/L [facility] AST [Catalytic activity/Vol] 34 U/L 10 - 39 U/L [facility] Bilirubin [Mass/Vol] 1.2 mg/dL NINF - 1.5 mg/dL [facility] Bilirubin.direct [Mass/Vol] 0.3 mg/dL High NINF - 0.3 mg/dL [facility] Protein [Mass/Vol] 7.7 g/dL 6.4 - 8.3 g/dL [facility] Albumin [Mass/Vol] 3.7 g/dL Normal 3.5-5.0 [facility] Comment on above: Performed By: #### M MERLE CHM7, HFP ####[facility] (DEFAULT)[address] [facility] [place] [address] ALP [Catalytic activity/Vol] 115 U/L Normal 32-126 [facility] Comment on above: Performed By: #### M MERLE CHM7, HFP ####[facility] (DEFAULT)[address] [place] [address] ALT [Catalytic activity/Vol] 22 U/L Normal 10-52 [facility] Comment on above: Performed By: #### M MERLE CHM7, HFP ####[facility] (DEFAULT)[address] [place] [address] AST [Catalytic activity/Vol] 34 U/L Normal 10-39 [facility] Comment on above: Performed By: #### M GO CHM7, HFP ####[facility] (DEFAULT)[address] [place] [address] Bilirubin [Mass/Vol] 1.2 mg/dL Normal <1.5 [facility] Comment on above: Performed By: #### M GO, CHM7, HFP ####[facility] (DEFAULT)[address] [place] [address] Bilirubin.indirect [Mass/Vol] 0.3 mg/dL High <0.3 [facility] Comment on above: Performed By: #### NATHANIEL RAMÍREZ, HFP ####[facility] (DEFAULT)[address] [place] [address] Protein [Mass/Vol] 7.7 g/dL Normal 6.4-8.3 [facility] Comment on above: Performed By: #### NATHANIEL RAMÍREZ, HFP ####[facility] (DEFAULT)[address] [place] [address] MAGNESIUMon 08-30-2023 Interpretation and review of laboratory results Normal [facility] Magnesium [Mass/Vol] 1.8 mg/dL 1.6 - 2 .6 mg/dL [facility] Magnesium [Mass/Vol] 1.8 mg/dL Normal 1.6-2.6 [facility] Comment on above: Performed By: #### NATHANIEL RAMÍREZ, HFP ####[facility] (DEFAULT)[address] [place] [address] No Panel Informationon 08-30 Interpretation and review of laboratory results Abnormal [facility] CBC,PLATELETSon 08-29-2023 Erythrocyte distribution width (RBC) [Ratio] 13.4 % 10.9 - 14.3 % [facility] Hematocrit (Bld) [Volume fraction] 37.6 % Low 39.6 - 48.8 % [facility] Hemoglobin (Bld) [Mass/Vol] 12.2 g/dL Low 13.4 - 16.8 g/dL [facility] Interpretation and review of laboratory results Abnormal [facility] MCH (RBC) [Entitic mass] 27.6 pg 26.1 - 33.3 pg [facility] MCHC (RBC) [Mass/Vol] 32.4 g/dL 31.9 - 36.5 g/dL [facility] MCV (RBC) [Entitic vol] 85.1 fL 79.0 - 94.5 fL [facility] Platelet mean volume (Bld) [Entitic vol] 9.4 fL 8.7 - 12.3 fL [facility] Platelets (Bld) [#/Vol] 233 10*3/uL 146 - 337 K/uL [facility] RBC (Bld) [#/Vol] 4.42 10*6/uL [facility] WBC (Bld) [#/Vol] 4.92 10*3/uL 3.73 - 10. 10 K/uL [facility] Hematocrit (Bld) [Volume fraction] 37.6 % Low 39.6-48.8 [facility] Comment on above: Performed By: #### H EMO ####[facility] (DEFAULT)[address] [place] [address] Hemoglobin (Bld) [Mass/Vol] 12.2 g/dL Low 13.4-16.8 [facility] Comment on above: Performed By: #### H EMO ####[facility] (DEFAULT)[address] [place] [address] MCV (RBC) [Entitic vol] 85.1 fL Normal 79.0-94.5 [facility] Comment on above: Performed By: #### H EMOGC ####[facility] (DEFAULT)[address] [place] [address] Mean Cell Hgb 27.6 pg Normal 26.1-33.3 [facility] Comment on above: Performed By: #### H EMOGC ####[facility] (DEFAULT)[address] [place] [address] Mean Cell Hgb Conc 32.4 g/dL Normal 31.9-36.5 [facility] Comment on above: Performed By: #### H EMOGC ####[facility] (DEFAULT)[address] [place] [address] Platelet mean volume (Bld) [Entitic vol] 9.4 fL Normal 8.7-12.3 [facility] Comment on above: Performed By: #### H [facility] ####[facility] (DEFAULT)[address] [place] [address] Platelets (Bld) [#/Vol] 233 10*3/uL Normal 146-337 [facility] Comment on above: Performed By: #### H [facility] ####[facility] (DEFAULT)[address] [place] [address] RBC (Bld) [#/Vol] 4.42 10*6/uL Normal 4.38-5.83 [facility] Comment on above: Performed By: #### H [facility] ####[facility] (DEFAULT)[address] [place] [address] RBC Distribution 13.4 % Normal 10.9-14.3 [facility] Comment on above: Performed By: #### H [facility] ####[facility] (DEFAULT)[address] [place] [address] WBC (Bld) [#/Vol] 4.92 10*3/uL Normal 3.73-10.10 [facility] Comment on above: Performed By: #### H [facility] ####[facility] (DEFAULT)[address] [place] [address] CHEM 7 (LYTES,BUN,CREA,GLUC) on 08-29-2023 Anion gap [Moles/Vol] 13 mmol/L 7 - 17 mmol/L [facility] Chloride [Moles/Vol] 105 mmol/L 98 - 10 8 mmol/L [facility] CO2 [Moles/Vol] 20 mmol/L Low 21 - 31 mmol/L [facility] Creatinine [Mass/Vol] 1.55 mg/dL High 0.70 - 1.30 mg/dL [facility] eGFR, CKD-EPI, Male 55 Low - PINF [facility] Glucose [Mass/Vol] 108 mg/dL High 70 - 99 mg/dL [facility] Osmolality Calc [Osmolality] 283 [facility] Potassium [Moles/Vol] 4.5 mmol/L 3.5 - 5.0 mmol/L [facility] Sodium [Moles/Vol] 133 mmol/L Low 135 - 145 mmol/L [facility] Urea nitrogen [Mass/Vol] 19 mg/dL 7 - 25 mg/dL [facility] Urea nitrogen/Creatinine [Mass ratio] 12 mg/mg [facility] Anion gap [Moles/Vol] 13 mmol/L Normal 7-17 [facility] Comment on above: Performed By: #### Rod GO, CHM7, HFP, GGTB ####[facility] (DEFAULT)[address] [place] [address] Chloride [Moles/Vol] 105 mmol/L Normal 98-108 [facility] Comment on above: Performed By: #### Rod GO, CHM7, HFP, GGTB ####[facility] (DEFAULT)[address] [place] [address] CO2 [Moles/Vol] 20 mmol/L Low 21-31 [facility] Comment on above: Performed By: #### Rod GO, CHM7, HFP, GGTB ####[facility] (DEFAULT)[address] [place] [address] Creatinine [Mass/Vol] 1.55 mg/dL High 0.70-1.30 [facility] Comment on above: Performed By: #### Rod GO, CHM7, HFP, GGTB ####[facility] (DEFAULT)[address] [place] [address] GFR/1.73 sq M.predicted among non-blacks MDRD (S/P/Bld) [Vol rate/Area] 54 mL/min/{1.73_m2} Low >=60 [facility] Comment on above: Result Comment: Repo rted eGFR is based on the CKD-EPI 2020 equation using creatinine, age, and sex. Performed By: #### M GO, CHM7, HFP, GGTB ####[facility] (DEFAULT)[address] [place] [address] Glucose [Mass/Vol] 108 mg/dL High 70-99 [facility] Comment on above: Performed By: #### M GO, CHM7, HFP, GGTB ####[facility] (DEFAULT)[address] [place] [address] Osmolality [Osmolality] 283 mosm/kg Normal 278-305 [facility] Comment on above: Performed By: #### M GO, CHM7, HFP, GGTB ####[facility] (DEFAULT)[address] [place] [address] Potassium [Moles/Vol] 4.5 mmol/L Normal 3.5-5.0 [facility] Comment on above: Performed By: #### M GO, CHM7, HFP, GGTB ####[facility] (DEFAULT)[address] [place] [address] Sodium [Moles/Vol] 133 mmol/L Low 135-145 [facility] Comment on above: Performed By: #### M GO, CHM7, HFP, GGTB ####[facility] (DEFAULT)[address] [place] [address] Urea nitrogen [Mass/Vol] 19 mg/dL Normal 7-25 [facility] Comment on above: Performed By: #### M GO, CHM7, HFP, GGTB ####[facility] (DEFAULT)[address] [place] [address] Urea nitrogen/Creatinine [Mass ratio] 12 mg/mg Normal [facility] Comment on above: Performed By: #### M GO, CHM7, HFP, GGTB ####[facility] (DEFAULT)[address] [place] [address] GGTon 08-29-2023 Gamma glutamyl transferase [Catalytic activity/Vol] 64 U/L 8 - 64 U/L [facility] Interpretation and review of laboratory results Normal [facility] Gamma glutamyl transferase [Catalytic activity/Vol] 64 U/L Normal 8-64 [facility] Comment on above: Performed By: #### M GO, CHM7, HFP, GGTB ####[facility] (DEFAULT)[address] [place] [address] HEPATIC FUNCTION PANELon Albumin [Mass/Vol] 3.3 g/dL Low 3.5 - 5.0 g/dL [facility] ALP [Catalytic activity/Vol] 103 U/L 32 - 126 U/L [facility] ALT [Catalytic activity/Vol] 18 U/L 10 - 52 U/L [facility] AST [Catalytic activity/Vol] 27 U/L 10 - 39 U/L [facility] Bilirubin [Mass/Vol] 1.1 mg/dL NINF - 1.5 mg/dL [facility] Bilirubin.direct [Mass/Vol] 0.3 mg/dL High NINF - 0.3 mg/dL [facility] Protein [Mass/Vol] 6.8 g/dL 6.4 - 8.3 g/dL [facility] Albumin [Mass/Vol] 3.3 g/dL Low 3.5-5.0 [facility] Comment on above: Performed By: #### M MERLE CHM7, HFP, GGTB ####[facility] (DEFAULT)[address] [place] [address] ALP [Catalytic activity/Vol] 103 U/L Normal 32-126 [facility] Comment on above: Performed By: #### M MERLE CHM7, HFP, GGTB ####[facility] (DEFAULT)[address] [place] [address] ALT [Catalytic activity/Vol] 18 U/L Normal 10-52 [facility] Comment on above: Performed By: #### M MERLE CHM7, HFP, GGTB ####[facility] (DEFAULT)[address] [place] [address] AST [Catalytic activity/Vol] 27 U/L Normal 10-39 [facility] Comment on above: Performed By: #### M GO, CHM7, HFP, GGTB ####[facility] (DEFAULT)[address] [place] [address] Bilirubin [Mass/Vol] 1.1 mg/dL Normal <1.5 [facility] Comment on above: Performed By: #### M GO, CHM7, HFP, GGTB ####[facility] (DEFAULT)[address] [place] [address] Bilirubin.indirect [Mass/Vol] 0.3 mg/dL High <0.3 [facility] Comment on above: Performed By: #### M GO, CHM7, HFP, GGTB ####[facility] (DEFAULT)[address] [place] [address] Protein [Mass/Vol] 6.8 g/dL Normal 6.4-8.3 [facility] Comment on above: Performed By: #### M GO, CHM7, HFP, GGTB ####[facility] (DEFAULT)[address] [place] [address] HISTOPLASMA AND BLASTOMYCES ANTIGEN, ENZYME IMMUNOASSAY, SERMon 08-29-2023 Histoplasma/Blastomy antonia Ag Result Detected Invalid Interpretation Code Not Detected [facility] Comment on above: Result Comment: Anti gen from Histoplasma or Blastomyces (unable todifferentiate) detected. Result should be correlated withclinical presentation, exposure history, and otherdiagnostic procedures, including culture, serology,histopathology, and/or radiographic findings, to aid in thedifferentiation between histoplasmosis and blastomycosis.CRITICAL RESULT Performed By: #### H IBAG ####[facility] (DEFAULT)[address] [place] [address] Histoplasma/Blastomy antonia Ag Value 5.3 ng/mL Normal [facility] Comment on above: Result Comment: ---- ADDITIONAL INFORMATION This test was developed and its performance characteristicsdetermined by [facility] in a manner consistent with CLIArequirements. This test has not been cleared or approved bythe U.S. Food and Drug Administration.Test Performed by:[address] Director: Rosendo Bose M.D. Ph.D.; CLIA# [id number] Performed By: #### H IBAG ####[facility] (DEFAULT)[address] [address] HISTOPLASMA ANTIGEN,URINEon 08-29-2023 HISTOPLASM AG, URINE Not detected Normal Not Detected [facility] Comment on above: Result Comment: No H istoplasma antigen detected.False negative results may occur. Repeat testing on anew specimen should be considered if clinically indicated. Performed By: #### Y HISTG ####[facility] (DEFAULT)[address] [address] Histoplasma Ag Value Not detected Normal [facility] Comment on above: Result Comment: ---- ADDITIONAL INFORMATION This test has been modified from the inside outside sales representative'sinstructions. Its performance characteristics weredetermined by [facility] in a manner consistent withCLIA requirements. This test has not been cleared orapproved by the U.S. Food and Drug Administration.Test Performed by:[address] [address]Qmr Director: Rosendo Bose M.D. Ph.D.; CLIA# [id number] Performed By: #### Y HISTG ####[facility] (DEFAULT)[address] [address] MAGNESIUMon 08-29-2023 Interpretation and review of laboratory results Normal [facility] Magnesium [Mass/Vol] 1.7 mg/dL 1.6 - 2 .6 mg/dL [facility] Magnesium [Mass/Vol] 1.7 mg/dL Normal 1.6-2.6 [facility] Comment on above: Performed By: #### M GO, CHM7, HFP, GGTB ####[facility] (DEFAULT)[address] [place] [address] No Panel Informationon 08-29 Interpretation and review of laboratory results Abnormal [facility] PT,INR,PTTon 08-29-2023 aPTT Coag (PPP) [Time] 29.3 s [facility] INR Coag (Bld) [Relative time] 1.1 {INR} 0.9 - 1.1 [facility] Interpretation and review of laboratory results Normal [facility] PT Coag (PPP) [Time] 13.8 s [facility] aPTT Coag (Bld) [Time] 29.3 s Normal 24.0-34.3 [facility] Comment on above: Performed By: #### P TPTT ####[facility] (DEFAULT)[address] [place] [address] INR Coag (PPP) [Relative time] 1.1 {INR} Normal 0.9-1.1 [facility] Comment on above: Performed By: #### P TPTT ####[facility] (DEFAULT)[address] [place] [address] PT Coag (PPP) [Time] 13.8 s Normal 11.9-14.2 [facility] Comment on above: Performed By: #### P TPTT ####[facility] (DEFAULT)[address] [place] [address] Portable XR Chest Viewson RADIOLOGY RADIOLOGY [facility] Portable XR Chest ViewsOrder ed By: Gerald Baer on 08-29-2023 [facility] Work Phone: TACROLIMUS LEVEL, TROUGH (NC E DRUG LEVEL)on 08-29-2023 Interpretation and review of laboratory results Normal [facility] Tacrolimus (Bld) [Mass/Vol] 8.9 ng/mL [facility] Tacrolimus, Trough 8.9 ng/mL Normal Bone Susana ow Transplant: 4.0-12.0, Therapeutic: 5.0-15.0 [facility] Comment on above: Order Comment: Pleas e draw at specified interval PRIOR to dose. Do not hold dose to wait for level. Specimens batched twice per day, (M-F) and once per day weekendsMethod performed is a chemiluminescent microparticle immunoasssay on the [employer] i2000.The range is based on experience at [facility] and users should be aware that target concentrations vary widely depending on concomitant therapy, time post-transplant, and desired degree of immunosuppression. Performed By: #### T ACRO ####[facility] (DEFAULT)[address] [place] [address] Tacrolimus, Trough 8.7 ng/mL Normal [facility] Susana ow Transplant: 4.0-12.0, Therapeutic: 5.0-15.0 [facility] Comment on above: Order Comment: Pleas e draw at specified interval PRIOR to dose. Do not hold dose to wait for level. Specimens batched twice per day, (M-F) and once per day weekendsMethod performed is a chemiluminescent microparticle immunoasssay on the [employer] [address] i2000.The range is based on experience at [facility] and users should be aware that target concentrations vary widely depending on concomitant therapy, time post-transplant, and desired degree of immunosuppression. Performed By: #### T ACRO ####[facility] (DEFAULT)[address] [place] [address] TACROLIMUS LEVEL, TROUGH (NC E DRUG LEVEL)Ordered By: Roxanne Louie on 08-29-2023 Interpretation and review of laboratory results Normal [facility] Tacrolimus (Bld) [Mass/Vol] 8.7 ng/mL [facility] URINALYSIS REFLEX TO CULTURE PERFORMABLEOrdered By: Shaji Kelly on 08-29-2023 Appearance (U) Clear Clear [facility] Bacteria LM Ql (Urine sed) ABSENT ABSENT [facility] Calcium Oxalate Crystals PRESENT [facility] Color (U) Yellow Yellow [facility] Epithelial cells.squamous LM Ql (Urine sed) 0-2/hpf 0-2/hpf, 3-5/hpf = 1+ [facility] Glucose Test strip (U) [Mass/Vol] Negative Negative [facility] Interpretation and review of laboratory results Abnormal [facility] Ketones (U) [Mass/Vol] Negative Negative [facility] Leukocyte esterase Test strip Ql (U) Negative Negative [facility] Nitrite Ql (U) Negative Negative [facility] pH (U) 6.0 [pH] 5.0 - 7.0 [facility] Protein (U) [Mass/Vol] Negative Negative [facility] RBC (U) [#/Vol] Trace Abnormal Negative [facility] RBC LM.HPF (Urine sed) [#/Area] 3-5 Abnormal [facility] Specific gravity (U) [Rel density] 1.015 1.001 - 1.035 [facility] Urobilinogen (U) [Mass/Vol] 1.0 E.U./dL 0.2 E.U/dL, 1.0 E.U/dL [facility] WBC LM.HPF (Urine sed) [#/Area] 0 - 5 [facility] URINALYSIS REFLEX TO CULTURE PERFORMABLEon 08-29-2023 Appearance (U) Clear Normal Clear [facility] Comment on above: Order Comment: For i ndwelling catheters, specimen collection is acceptable on catheter day 1 and 2 only. ? Performed By: #### U [id number] ####[facility] (DEFAULT)[address] [place] [address] Bacteria ABSENT Normal ABSENT [facility] Comment on above: Order Comment: For i ndwelling catheters, specimen collection is acceptable on catheter day 1 and 2 only. ? Performed By: #### U [id number] ####[facility] (DEFAULT)[address] [place] [address] Blood Urine Trace Abnormal Negative [facility] Comment on above: Order Comment: For i ndwelling catheters, specimen collection is acceptable on catheter day 1 and 2 only. ? Performed By: #### U [id number] ####[facility] (DEFAULT)[address] [place], [place] [address], [place] [address] Calcium Oxalate Crystals PRESENT Normal [facility] Comment on above: Order Comment: For i ndwelling catheters, specimen collection is acceptable on catheter day 1 and 2 only. ? Performed By: #### U [id number] ####[facility] (DEFAULT)[address] [place], [place] [address], [place] [address] Color (U) Yellow Normal Yellow [facility] Comment on above: Order Comment: For i ndwelling catheters, specimen collection is acceptable on catheter day 1 and 2 only. ? Performed By: #### U [id number] ####[facility] (DEFAULT)[address] [place] [address] Glucose Ql (U) Negative Normal Negative [facility] Comment on above: Order Comment: For i ndwelling catheters, specimen collection is acceptable on catheter day 1 and 2 only. ? Performed By: #### U [id number] ####[facility] (DEFAULT)[address] [place], [place] [address], [place] [address] Ketones Ql (U) Negative Normal Negative [facility] Comment on above: Order Comment: For i ndwelling catheters, specimen collection is acceptable on catheter day 1 and 2 only. ? Performed By: #### U [id number] ####[facility] (DEFAULT)[address] [facility] [place] [address] Leukocyte esterase Test strip Ql (U) Negative Normal Negative [facility] Comment on above: Order Comment: For i ndwelling catheters, specimen collection is acceptable on catheter day 1 and 2 only. ? Performed By: #### U [id number] ####[facility] (DEFAULT)[address] [place] [address] Nitrites Urine Negative Normal Negative [facility] Comment on above: Order Comment: For i ndwelling catheters, specimen collection is acceptable on catheter day 1 and 2 only. ? Performed By: #### U [id number] ####[facility] (DEFAULT)[address] [facility] [place] [address] pH (U) 6.0 [pH] Normal 5.0-7.0 [facility] Comment on above: Order Comment: For i ndwelling catheters, specimen collection is acceptable on catheter day 1 and 2 only. ? Performed By: #### U [id number] ####[facility] (DEFAULT)[address] [facility] [place] [address] Protein Urine Negative Normal Negative [facility] Comment on above: Order Comment: For i ndwelling catheters, specimen collection is acceptable on catheter day 1 and 2 only. ? Performed By: #### U [id number] ####[facility] (DEFAULT)[address] [place], [place] [address] [address] RBC Urine 3-5 Abnormal 0-2 [facility] Comment on above: Order Comment: For i ndwelling catheters, specimen collection is acceptable on catheter day 1 and 2 only. ? Performed By: #### U [id number] ####[facility] (DEFAULT)[address] [facility] [place] [address] Specific [place] Urine 1.015 Normal 1.001-1.035 [facility] Comment on above: Order Comment: For i ndwelling catheters, specimen collection is acceptable on catheter day 1 and 2 only. ? Performed By: #### U [id number] ####[facility] (DEFAULT)[address] [facility] [place] [address] Squamous/Epithelial Cells 0-2/hpf Normal 0-2/hpf, 3-5/hpf = 1+ [facility] Comment on above: Order Comment: For i ndwelling catheters, specimen collection is acceptable on catheter day 1 and 2 only. ? Performed By: #### U [id number] ####[facility] (DEFAULT)[address] [place] [address] Urobilinogen Urine 1.0 E.U./dL Normal 0.2 E.U/d L, 1.0 E.U/dL [facility] Comment on above: Order Comment: For i ndwelling catheters, specimen collection is acceptable on catheter day 1 and 2 only. ? Performed By: #### U [id number] ####[facility] (DEFAULT)[address] [place] [address] WBC Urine 0 - 5 Normal 0 - 5 [facility] Comment on above: Order Comment: For i ndwelling catheters, specimen collection is acceptable on catheter day 1 and 2 only. ? Performed By: #### U [id number] ####[facility] (DEFAULT)[address] [place] [address] URINE CULTUREon 08-29-2023 Bacteria identified Cx Nom (U) No Growth Normal [facility] Comment on above: Order Comment: For i ndwelling catheters, specimen collection is acceptable on catheter day 1 and 2 only. Sung top vacutainer. Urine must be to the fill line to process (4mls). If minimum volume, send urine in a yellow top vacutainer tube. Performed By: #### U R ####[facility] (DEFAULT)[address] [place] [address] US RENAL TRANSPLANT SCANon 0 08-29-2023 US RENAL TRANSPLANT SCAN Normal [facility] US for transplanted kidney l imitedon 08-29-2023 RADIOLOGY RADIOLOGY [facility] Radiology Study observation (narrative) [facility] [place] for transplanted kidney l imitedOrdered By: Romana Matias on 08-29-2023 [facility] [place] Work Phone: XR CHEST PORTABLEon 08-29-20 23 XR CHEST PORTABLE Normal [facility] BLOOD CULTUREon 08-28-2023 Bacteria identified Cx Nom (Unsp spec) NO GROWTH DAY 5 OF 5 Normal [facility] [...] then anaerobic Performed By: #### B LDCULT ####[facility] [place] (DEFAULT)[address] [place] [address] Bacteria identified Cx Nom (Unsp spec) NO GROWTH DAY 5 OF 5 Normal [facility] [...] then anaerobic Performed By: #### B LDCULT ####[facility] [place] (DEFAULT)[address] [place] [address] DARYL AURIS SCREEN BY PCRo n 08-28-2023 Daryl auris Screen by PCR Not detected Normal Not Detected [facility] Comment on above: Order Comment: This test was performed using a real-time PCR assay. This test was developed, and its performance characteristics determined by [facility]. It has not been cleared or approved by the FDA. The laboratory is regulated under CLIA as qualified to perform high-complexity testing. This test is used for clinical purposes. It should not be regarded as investigational or for research. Performed By: #### C ANDIDA AURIS SCREEN BY PCR ####[facility] [place] (DEFAULT)[address] [place] [address] CBC AND ELECTRONIC DIFFon Basophils (Bld) [#/Vol] K/uL 0.00 - 0.09 K/uL [facility] [place] Basophils/100 WBC (Bld) 0.6 % [facility] [place] Differential cell count method Nom (Bld) Electronic Differential [facility] Eosinophils (Bld) [#/Vol] 0.10 10*3/uL 0.00 - 0.48 K/uL [facility] [place] Eosinophils/100 WBC (Bld) 2.1 % [facility] [place] Erythrocyte distribution width (RBC) [Ratio] 13.4 % 10.9 - 14.3 % [facility] [place] Hematocrit (Bld) [Volume fraction] 37.9 % Low 39.6 - 48.8 % [facility] [place] Hemoglobin (Bld) [Mass/Vol] 12.4 g/dL Low 13.4 - 16.8 g/dL [facility] [place] Immature granulocytes (Bld) [#/Vol] K/uL NINF - 0.07 K/uL [facility] [place] Immature granulocytes/100 WBC (Bld) 0.6 % [facility] [place] Interpretation and review of laboratory results Abnormal [facility] [place] Lymphocytes (Bld) [#/Vol] 1.76 10*3/uL 0.83 - 3.57 K/uL [facility] [place] Lymphocytes/100 WBC (Bld) 37.1 % [facility] [place] MCH (RBC) [Entitic mass] 27.8 pg 26.1 - 33.3 pg [facility] [place] MCHC (RBC) [Mass/Vol] 32.7 g/dL 31.9 - 36.5 g/dL [facility] [place] MCV (RBC) [Entitic vol] 85.0 fL 79.0 - 94.5 fL [facility] [place] Monocytes (Bld) [#/Vol] 0.66 10*3/uL 0.24 - 0.93 K/uL [facility] [place] Monocytes/100 WBC (Bld) 13.9 % [facility] [place] Neutrophils (Bld) [#/Vol] 2.16 10*3/uL 1.57 - 6.19 K/uL [facility] [place] Nucleated RBC/100 WBC (Bld) [Ratio] 0.0 % NINF [facility] [place] Platelet mean volume (Bld) [Entitic vol] 9.3 fL 8.7 - 12.3 fL [facility] [place] Platelets (Bld) [#/Vol] 262 10*3/uL 146 - 337 K/uL [facility] [place] RBC (Bld) [#/Vol] 4.46 10*6/uL [facility] Segmented neutrophils/100 WBC (Bld) 45.7 % [facility] [place] WBC (Bld) [#/Vol] 4.74 10*3/uL 3.73 - 10. 10 K/uL [facility] Abs Baso Auto < Normal 0.00-0.09 [facility] Comment on above: Performed By: #### L [id number] ####[facility] [place] (DEFAULT)[address] [place] [address] Basophils/100 WBC (Bld) 0.6 % Normal [facility] Comment on above: Performed By: #### L [id number] ####[facility] [place] (DEFAULT)[address] [place] [address] DIFF STATUS Electronic Differential Normal [facility] Comment on above: Performed By: #### L [id number] ####[facility] [place] (DEFAULT)[address] [place] [address] Eosinophils (Bld) [#/Vol] 0.10 10*3/uL Normal 0.00-0.48 [facility] Comment on above: Performed By: #### L [id number] ####[facility] [place] (DEFAULT)[address] [place] [address] Eosinophils/100 WBC (Bld) 2.1 % Normal [facility] Comment on above: Performed By: #### L [id number] ####[facility] [place] (DEFAULT)[address] [place] [address] Hematocrit (Bld) [Volume fraction] 37.9 % Low 39.6-48.8 [facility] Comment on above: Performed By: #### L [id number] ####[facility] [place] (DEFAULT)[address] [facility] [place] [address] Hemoglobin (Bld) [Mass/Vol] 12.4 g/dL Low 13.4-16.8 [facility] Comment on above: Performed By: #### L [id number] ####[facility] [place] (DEFAULT)[address] [facility] [place] [address] Immature Grans % 0.6 % Normal [facility] Comment on above: Performed By: #### L [id number] ####[facility] [place] (DEFAULT)[address] [facility] [place] [address] Immature Grans Absolute < Normal <=0.07 [facility] Comment on above: Performed By: #### L [id number] ####[facility] [place] (DEFAULT)[address] [facility] [place] [address] Lymphocytes (Bld) [#/Vol] 1.76 10*3/uL Normal 0.83-3.57 [facility] Comment on above: Performed By: #### L [id number] ####[facility] [place] (DEFAULT)[address] [place] [address] Lymphocytes/100 WBC (Bld) 37.1 % Normal [facility] Comment on above: Performed By: #### L [id number] ####[facility] [place] (DEFAULT)[address] [place] [address] MCV (RBC) [Entitic vol] 85.0 fL Normal 79.0-94.5 [facility] Comment on above: Performed By: #### L [id number] ####[facility] [place] (DEFAULT)[address] [place] [address] Mean Cell Hgb 27.8 pg Normal 26.1-33.3 [facility] Comment on above: Performed By: #### L [id number] ####[facility] [place] (DEFAULT)[address] [place] [address] Mean Cell Hgb Conc 32.7 g/dL Normal 31.9-36.5 [facility] Comment on above: Performed By: #### L [id number] ####[facility] [place] (DEFAULT)[address] [place] [address] Monocytes (Bld) [#/Vol] 0.66 10*3/uL Normal 0.24-0.93 [facility] Comment on above: Performed By: #### L [id number] ####[facility] [place] (DEFAULT)[address] [facility] [place] [address] Monocytes/100 WBC (Bld) 13.9 % Normal [facility] Comment on above: Performed By: #### L [id number] ####[facility] [place] (DEFAULT)[address] [facility] [place] [address] Nucleated RBC 0.0 /100 WBC Normal <=0.2 [facility] Comment on above: Performed By: #### L [id number] ####[facility] [place] (DEFAULT)[address] [facility] [place] [address] Platelet mean volume (Bld) [Entitic vol] 9.3 fL Normal 8.7-12.3 [facility] Comment on above: Performed By: #### L [id number] ####[facility] [place] (DEFAULT)[address] [place] [address] Platelets (Bld) [#/Vol] 262 10*3/uL Normal 146-337 [facility] Comment on above: Performed By: #### L [id number] ####[facility] [place] (DEFAULT)[address] [facility] [place] [address] RBC (Bld) [#/Vol] 4.46 10*6/uL Normal 4.38-5.83 [facility] Comment on above: Performed By: #### L [id number] ####[facility] [place] (DEFAULT)[address] [place] [address] RBC Distribution 13.4 % Normal 10.9-14.3 [facility] Comment on above: Performed By: #### L [id number] ####[facility] [place] (DEFAULT)[address] [place] [address] Segs + Bands Auto 45.7 % Normal [facility] Comment on above: Performed By: #### L [id number] ####[facility] [place] (DEFAULT)[address] [place] [address] Segs + Bands,Absolute Auto 2.16 K/uL Normal 1.57-6.19 [facility] Comment on above: Performed By: #### L [id number] ####[facility] [place] (DEFAULT)[address] [place] [address] WBC (Bld) [#/Vol] 4.74 10*3/uL Normal 3.73-10.10 [facility] Comment on above: Performed By: #### L [id number] ####[facility] [place] (DEFAULT)[address] [place] [address] CHEM 6 (LYTES, BUN CREA)on 0 08-28-2023 Anion gap [Moles/Vol] 13 mmol/L 7 - 17 mmol/L [facility] [place] Chloride [Moles/Vol] 103 mmol/L 98 - 10 8 mmol/L [facility] [place] CO2 [Moles/Vol] 22 mmol/L 21 - 31 mmol/L [facility] [place] Creatinine [Mass/Vol] 1.62 mg/dL High 0.70 - 1.30 mg/dL [facility] [place] eGFR, CKD-EPI, Male 51 Low - PINF [facility] Interpretation and review of laboratory results Abnormal [facility] [place] Potassium [Moles/Vol] 4.3 mmol/L 3.5 - 5.0 mmol/L [facility] [place] Sodium [Moles/Vol] 134 mmol/L Low 135 - 145 mmol/L [facility] [place] Urea nitrogen [Mass/Vol] 22 mg/dL 7 - 25 mg/dL [facility] [place] Urea nitrogen/Creatinine [Mass ratio] 14 mg/mg [facility] Anion gap [Moles/Vol] 13 mmol/L Normal 7-17 [facility] Comment on above: Performed By: #### C HM6 ####[facility] [place] (DEFAULT)[address] [place] [address] Chloride [Moles/Vol] 103 mmol/L Normal 98-108 [facility] Comment on above: Performed By: #### C HM6 ####[facility] [place] (DEFAULT)[address] [facility] [place] [address] CO2 [Moles/Vol] 22 mmol/L Normal 21-31 [facility] Comment on above: Performed By: #### C HM6 ####[facility] [place] (DEFAULT)[address] [facility] [place] [address] Creatinine [Mass/Vol] 1.62 mg/dL High 0.70-1.30 [facility] Comment on above: Performed By: #### C HM6 ####[facility] [place] (DEFAULT)[address] [facility] [place] [address] GFR/1.73 sq M.predicted among non-blacks MDRD (S/P/Bld) [Vol rate/Area] 51 mL/min/{1.73_m2} Low >=60 [facility] Comment on above: Result Comment: Repo rted eGFR is based on the CKD-EPI 2020 equation using creatinine, age, and sex. Performed By: #### C HM6 ####[facility] [place] (DEFAULT)[address] [facility] [place] [address] Potassium [Moles/Vol] 4.3 mmol/L Normal 3.5-5.0 [facility] Comment on above: Performed By: #### C HM6 ####[facility] [place] (DEFAULT)[address] [place] [address] Sodium [Moles/Vol] 134 mmol/L Low 135-145 [facility] Comment on above: Performed By: #### C HM6 ####[facility] (DEFAULT)[address] [place] [address] Urea nitrogen [Mass/Vol] 22 mg/dL Normal 7-25 [facility] Comment on above: Performed By: #### C HM6 ####[facility] (DEFAULT)[address] [place] [address] Urea nitrogen/Creatinine [Mass ratio] 14 mg/mg Normal [facility] Comment on above: Performed By: #### C HM6 ####[facility] (DEFAULT)[address] [place] [address], [place] [address] IMMUNOCOMPROMISED RESPIRATOR Y PANELon 08-28-2023 Adenovirus - Pcr Not detected Normal Not Detected [facility] Comment on above: Order Comment: Viral [...] Performed By: #### I CRESP ####[facility] [place] (DEFAULT)[address] [place] [address], [place] [address] Bordetella Parapertussis Not detected Normal Not Detected [facility] Comment on above: Order Comment: Viral [...] assay. Performed By: #### I CRESP ####[facility] (DEFAULT)[address] [place] [address] Bordetella Pertussis Not detected Normal Not Detected [facility] Comment on above: Order Comment: Viral [...] Performed By: #### I CRESP ####[facility] [place] (DEFAULT)[address] [address] Chlamydia Pneumoniae Not detected Normal Not Detected [facility] Comment on above: Order Comment: Viral [...] Performed By: #### I CRESP ####[facility] [place] (DEFAULT)[address] [place] [address] Coronavirus 229E Not detected Normal Not Detected [facility] Comment on above: Order Comment: Viral [...] Performed By: #### I CRESP ####[facility] [place] (DEFAULT)[address] [address] Coronavirus Hku1 Not detected Normal Not Detected [facility] Comment on above: Order Comment: Viral [...] Performed By: #### I CRESP ####[facility] [place] (DEFAULT)[address] [place] [address] Coronavirus Nl63 Not detected Normal Not Detected [facility] Comment on above: Order Comment: Viral [...] Performed By: #### I CRESP ####[facility] [place] (DEFAULT)[address] [place] [address] Coronavirus Oc43 Not detected Normal Not Detected [facility] Comment on above: Order Comment: Viral [...] Performed By: #### I CRESP ####[facility] [place] (DEFAULT)[address] [place] [address], [place] [address] Influenza A - Pcr Not detected Normal Not Detected [facility] Comment on above: Order Comment: Viral [...] Performed By: #### I CRESP ####[facility] [place] (DEFAULT)[address] [address] Influenza B - Pcr Not detected Normal Not Detected [facility] Comment on above: Order Comment: Viral [...] Performed By: #### I CRESP ####[facility] [place] (DEFAULT)[address] [place] [address] Metapneumovirus - Pcr Not detected Normal Not Detected [facility] Comment on above: Order Comment: Viral [...] Performed By: #### I CRESP ####[facility] [place] (DEFAULT)[address] [place] [address], [place] [address] Mycoplasma Pneumoniae Not detected Normal Not Detected [facility] Comment on above: Order Comment: Viral [...] Performed By: #### I CRESP ####[facility] [place] (DEFAULT)[address] [place] [address] Parainfluenza 1 - Pcr Not detected Normal Not Detected [facility] Comment on above: Order Comment: Viral [...] Performed By: #### I CRESP ####[facility] [place] (DEFAULT)[address] [place] [address], [place] [address] Parainfluenza 2 - Pcr Not detected Normal Not Detected [facility] Comment on above: Order Comment: Viral [...] Performed By: #### I CRESP ####[facility] [place] (DEFAULT)[address] [place] [address], [place] [address] Parainfluenza 3 - Pcr Not detected Normal Not Detected [facility] Comment on above: Order Comment: Viral [...] Performed By: #### I CRESP ####[facility] [place] (DEFAULT)[address] [place] [address], [place] [address] Parainfluenza 4 - Pcr Not detected Normal Not Detected [facility] Comment on above: Order Comment: Viral [...] Performed By: #### I CRESP ####[facility] [place] (DEFAULT)[address] [place] [address], [place] [address] Rhinovirus/Enterovir us - PCR Not detected Normal Not Detected [facility] Comment on above: Order Comment: Viral [...] Performed By: #### I CRESP ####[facility] [place] (DEFAULT)[address] [place] [address] Rsv - Pcr Not detected Normal Not Detected [facility] Comment on above: Order Comment: Viral [...] Performed By: #### I CRESP ####[facility] [place] (DEFAULT)[address] [place] [address] SARS-CoV-2 (COVID-19) RNA ESTELITA+probe Ql (Unsp spec) Not detected Normal NOT DETECTED [facility] Comment on above: Order Comment: Viral [...] Performed By: #### I CRESP ####[facility] [place] (DEFAULT)[address] [place] [address] Portable XR Chest Viewson Radiology Study observation (narrative) [facility] [place] Respiratory virus DNA+RNA NA A+probe Nom (Unsp spec)Ordered By: Dayami Harris on 08-28-2023 Adenovirus DNA ESTELITA+probe Nom (Unsp spec) Not detected Not Detected [facility] [place] B. parapertussis DNA ESTELITA+probe Ql (Unsp spec) Not detected Not Detected [facility] [place] B. pertussis DNA ESTELITA+probe Ql (Unsp spec) Not detected Not [facility] C. pneumoniae DNA ESTELITA+probe Ql (Unsp spec) Not detected Not Detected [facility] FLUAV RNA ESTELITA+probe Ql (Unsp spec) Not detected Not Detected [facility] FLUBV RNA ESTELITA+probe Ql (Unsp spec) Not detected Not Detected [facility] HCoV 229E RNA ESTELITA+non-probe Ql (Nph) Not detected Not Detected [facility] HCoV HKU1 RNA ESTELITA+non-probe Ql (Nph) Not detected Not Detected [facility] HCoV NL63 RNA ESTELITA+non-probe Ql (Nph) Not detected Not Detected [facility] HCoV OC43 RNA ESTELITA+non-probe Ql (Nph) Not detected Not Detected [facility] [place] hMPV A RNA ESTELITA+probe Ql (Unsp spec) Not detected Not Detected [facility] [place] Interpretation and review of laboratory results Normal [facility] [place] M. pneumoniae DNA ESTELITA+probe Ql (Unsp spec) Not detected Not Detected [facility] Parainfluenza virus 1 RNA ESTELITA+probe Ql (Unsp spec) Not detected Not Detected [facility] Parainfluenza virus 2 RNA ESTELITA+probe Ql (Unsp spec) Not detected Not Detected [facility] Parainfluenza virus 3 RNA ESTELITA+probe Ql (Unsp spec) Not detected Not Detected [facility] Parainfluenza virus 4 RNA ESTELITA+probe Ql (Unsp spec) Not detected Not Detected [facility] Rhinovirus+Enterovir us RNA ESTELITA+probe Ql (Unsp spec) Not detected Not Detected [facility] RSV RNA ESTELITA+probe Ql (Unsp spec) Not detected Not Detected [facility] SARS-CoV-2 (COVID-19) RNA ESTELITA+probe Ql (Unsp spec) Not detected NOT DETECTED [facility] ALBUMINon 04-28-2023 Albumin [Mass/Vol] 4.0 g/dL Normal 3.4-5.0 [facility] Comment on above: Performed By: #### C MP #### [facility] [address] [place] [address] Dr. Dwight Waters ALKALINE PHOSPHAon ALP [Catalytic activity/Vol] 106 U/L Normal 46-116 [facility] Comment on above: Performed By: #### F [id number] #### [facility] [address] [place] [address] Dr. Dwight Waters BILIRUBIN CONJUGATED (DIRECT )on 04-28-2023 BILI, CONJUGATED 0.3 mg/dL Critically high 0.0-0.2 [facility] Comment on above: Performed By: #### C MP #### [facility] [address] [place] [address] Dr. Dwight Waters BILIRUBIN TOTALon 04-28-2023 Bilirubin [Mass/Vol] 1.4 mg/dL Critically high 0.2-1.0 [facility] Comment on above: Performed By: #### C MP #### [facility] [address] [place] [address] Dr. Dwight Waters BUNon 04-28-2023 Urea nitrogen [Mass/Vol] 12.0 mg/dL Normal 7.0-18.0 [facility] Comment on above: Performed By: #### U RTPCR #### [facility] [address] [place] [address] Dr. Dwight Waters CALCIUMon 04-28-2023 Calcium [Mass/Vol] 9.3 mg/dL Normal 8.5-10.1 [facility] Comment on above: Performed By: #### U RTPCR #### [facility] [address] [place] [address] Dr. Dwight Waters CBC AUTO DIFFon 04-28-2023 BASO # 0.1 103/ul Normal 0.0-0.1 [facility] Comment on above: Performed By: #### C BC #### [facility] [address] [place] [address] Dr. Dwight Waters Basophils/100 WBC (Bld) 0.9 % Normal 0.2-2.0 [facility] Comment on above: Performed By: #### C BC #### [facility] [address] [place] [address] Dr. Dwight Waters EO # 0.2 103/ul Normal 0.0-0.7 [facility] Comment on above: Performed By: #### C BC #### [facility] [address] [place] [address] Dr. Dwight Waters Eosinophils/100 WBC (Bld) 3.8 % Normal 0.9-7.0 [facility] Comment on above: Performed By: #### C BC #### [facility] [address] [place] [address] Dr. Dwight Waters Erythrocyte distribution width (RBC) [Ratio] 12.5 % Normal 11.0-15.0 [facility] Comment on above: Performed By: #### C BC #### [facility] [address] [place] [address] Dr. Dwight Waters Hematocrit (Bld) [Volume fraction] 49.8 % Normal 42.0-54.0 [facility] Comment on above: Performed By: #### C BC #### [facility] [address] [place] [address] Dr. Dwight Waters Hemoglobin (Bld) [Mass/Vol] 16.4 g/dL Normal 14.0-18.0 [facility] Comment on above: Performed By: #### C BC #### [facility] [address] [place] [address] Dr. Dwight Waters IG # 0.01 10e3/ul Normal 0.00-0.03 [facility] Comment on above: Performed By: #### C BC #### [facility] [address] [place] [address] Dr. Dwight Waters IG % 0.2 % Normal 0.0-0.5 [facility] Comment on above: Performed By: #### C BC #### [facility] [address] [place] [address] Dr. Dwight Waters LYMPH # 2.1 103/ul Normal 1.2-3.8 [facility] Comment on above: Performed By: #### C BC #### [facility] [address] [place] [address] Dr. Dwight Waters Lymphocytes/100 WBC (Bld) 39.1 % Normal 20.5-60.0 [facility] Comment on above: Performed By: #### C BC #### [facility] [address] [place] [address] Dr. Dwight Waters MANUAL DIFF REQ NO Normal [facility] Comment on above: Performed By: #### C BC #### [facility] [address] [place] [address] Dr. Dwight Waters MCH (RBC) [Entitic mass] 28.6 pg Normal 25.9-34.0 [facility] Comment on above: Performed By: #### C BC #### [facility] [address] [place] [address] Dr. Dwight Waters MCHC (RBC) [Mass/Vol] 32.9 g/dL Normal 29.9-35.2 [facility] Comment on above: Performed By: #### C BC #### [facility] [address] [place] [address] Dr. Dwight Waters MCV (RBC) [Entitic vol] 86.9 fL Normal 80.0-94.0 [facility] Comment on above: Performed By: #### C BC #### [facility] [address] [place] [address] Dr. Dwight Waters MONO # 0.6 103/ul Normal 0.3-0.8 [facility] Comment on above: Performed By: #### C BC #### [facility] [address] [place] [address] Dr. Dwight Waters Monocytes/100 WBC (Bld) 10.6 % Normal 1.7-12.0 [facility] Comment on above: Performed By: #### C BC #### [facility] [address] [place] [address] Dr. Dwight Waters NEUT # 2.5 103/ul Normal 1.4-6.5 [facility] Comment on above: Performed By: #### C BC #### [facility] [address] [place] [address] Dr. Dwight Waters Neutrophils/100 WBC (Bld) 45.4 % Normal 43.0-75.0 [facility] Comment on above: Performed By: #### C BC #### [facility] [address] [place] [address] Dr. Dwight Waters Platelet mean volume (Bld) [Entitic vol] 9.3 fL Critically low 9.5-13.5 [facility] Comment on above: Performed By: #### C BC #### [facility] [address] [place] [address] Dr. Dwight Waters PLT 248 103/ul Normal 150-450 [facility] Comment on above: Performed By: #### C BC #### [facility] [address] [place] [address] Dr. Dwight Waters RBC 5.73 106/ul Normal 4.70-6.10 [facility] Comment on above: Performed By: #### C BC #### [facility] [address] [place] [address] Dr. Dwight Waters WBC 5.5 103/ul Normal 4.0-11.0 [facility] Comment on above: Performed By: #### C BC #### [facility] [address] [place] [address] Dr. Dwight Waters CHLORIDEon 04-28-2023 Chloride [Moles/Vol] 107 mmol/L Normal 98-107 [facility] Comment on above: Performed By: #### U RTPCR #### [facility] [address] [place] [address] Dr. Dwight Waters CO2on 04-28-2023 CO2 [Moles/Vol] 28.9 mmol/L Normal 21.0-32.0 [facility] Comment on above: Performed By: #### U RTPCR #### [facility] [address] [place] [address] Dr. Dwight Waters CREATININEon 04-28-2023 Creatinine [Mass/Vol] 1.17 mg/dL Normal 0.70-1.30 [facility] Comment on above: Performed By: #### U RTPCR #### [facility] [address] [place] [address] Dr. Dwight Waters EGFR-AF RWANDAN >60 Normal >=60 [facility] Comment on above: Performed By: #### U RTPCR #### [facility] [address] [place] [address] Dr. Dwight Waters EGFR-NON AF RWANDAN >60 Normal >=60 [facility] Comment on above: Performed By: #### U RTPCR #### [facility] [address] [place] [address] Dr. Dwight Waters GGTon 04-28-2023 Gamma glutamyl transferase [Catalytic activity/Vol] 27 U/L Normal 15-85 [facility] Comment on above: Performed By: #### U RTPCR #### [facility] [address] [place] [address] Dr. Dwight Waters GLUCOSE BLOODon 04-28-2023 Glucose [Mass/Vol] 110 mg/dL Critically high 74-106 [facility] Comment on above: Performed By: #### U RTPCR #### [facility] [address] [place] [address] Dr. Dwight Waters MAGNESIUMon 04-28-2023 Magnesium [Mass/Vol] 1.7 mg/dL Critically low 1.8-2.4 [facility] Comment on above: Performed By: #### U RTPCR #### [facility] [address] [place] [address] Dr. Dwight Waters NAon 04-28-2023 Sodium [Moles/Vol] 144 mmol/L Normal 136-145 [facility] Comment on above: Performed By: #### U RTPCR #### [facility] [address] [place] [address] Dr. Dwight Waters PHOSPHORUSon 04-28-2023 Phosphate [Mass/Vol] 3.2 mg/dL Normal 2.6-4.7 [facility] Comment on above: Performed By: #### U RTPCR #### [facility] [address] [place] [address] Dr. Dwight Waters POTASSIUMon 04-28-2023 Potassium [Moles/Vol] 4.0 mmol/L Normal 3.5-5.1 [facility] Comment on above: Performed By: #### U RTPCR #### [facility] [address] [place] [address] Dr. Dwight OLVERAOTon 04-28-2023 AST [Catalytic activity/Vol] 25 U/L Normal 15-37 [facility] Comment on above: Performed By: #### C MP #### [facility] [address] [place] [address] Dr. Dwight Waters SGPTon 04-28-2023 ALT [Catalytic activity/Vol] 40 U/L Normal 16-63 [facility] Comment on above: Performed By: #### C MP #### [facility] [address] [place] [address] Dr. Dwight Waters URINE T PROTEIN CREAT RATIOo 04-28-2023 Protein (U) [Mass/Vol] 10.1 mg/dL Normal <=12.0 [facility] Comment on above: Performed By: #### U RTPCR #### [facility] [address] [place] [address] Dr. Dwight Waters UR PROT CREAT RAT 0.14 Normal [facility] Comment on above: Performed By: #### U RTPCR #### [facility] [address] [place] [address] Dr. Dwight Waters URINE CREAT 74.40 mg/dL Normal 20.00-300.00 [facility] Comment on above: Performed By: #### U RTPCR #### [facility] [address] [place] [address] Dr. Dwight Waters BK VIRUS PCR QUANTon 023 BKV DNA QUANT PCR PLASMA Negative Normal Negative [facility] Comment on above: Result Comment: No B K DNA detected. . The linear range of the assay is 22 - 100,000,000 IU/mL. Performed By: #### B KVIRUS #### [facility] [address] [place] [address] Dr. Dwight Waters Log10 BKV DNA Plasma Normal [facility] Comment on above: Performed By: #### B KVIRUS #### [facility] [address] [place] [address] Dr. Dwight Waters FK506 (TACROLIMUS) WHOLE BLO ODon 03-04-2023 Tacrolimus (FK506), Blood 5.9 ng/mL Normal 2.0-20.0 [facility] Comment on above: Result Comment: Trou gh (immediately following transplant) 15.0 . Trough (steady state, 2 weeks or more after transplant): 3.0 - 8.0 . Performed by LC-MS/MS technology. Performed By: #### C MP #### [facility] [address] [place] [address] Dr. Dwight Waters ALBUMINon 03-02-2023 Albumin [Mass/Vol] 3.9 g/dL Normal 3.4-5.0 [facility] Comment on above: Performed By: #### U RTPCR #### [facility] [address] [place] [address] Dr. Dwight Waters ALKALINE PHOSPHAon ALP [Catalytic activity/Vol] 105 U/L Normal 46-116 [facility] Comment on above: Performed By: #### U RTPCR #### [facility] [address] [place] [address] Dr. Dwight Waters BILIRUBIN CONJUGATED (DIRECT )on 03-02-2023 BILI, CONJUGATED 0.2 mg/dL Normal 0.0-0.2 [facility] Comment on above: Performed By: #### U RTPCR #### [facility] [address] [place] [address] Dr. Dwight Waters BILIRUBIN TOTALon 03-02-2023 Bilirubin [Mass/Vol] 0.9 mg/dL Normal 0.2-1.0 [facility] Comment on above: Performed By: #### U RTPCR #### [facility] [address] [place] [address] Dr. Dwight Waters CBC AUTO DIFFon 03-02-2023 BASO # 0.1 103/ul Normal 0.0-0.1 [facility] Comment on above: Performed By: #### C BC #### [facility] [address] [place] [address] Dr. Dwight Waters Basophils/100 WBC (Bld) 0.9 % Normal 0.2-2.0 [facility] Comment on above: Performed By: #### C BC #### [facility] [address] [place] [address] Dr. Dwight Waters EO # 0.2 103/ul Normal 0.0-0.7 [facility] Comment on above: Performed By: #### C BC #### [facility] [address] [place] [address] Dr. Dwight Waters Eosinophils/100 WBC (Bld) 3.5 % Normal 0.9-7.0 [facility] Comment on above: Performed By: #### C BC #### [facility] [address] [place] [address] Dr. Dwight Waters Erythrocyte distribution width (RBC) [Ratio] 12.7 % Normal 11.0-15.0 [facility] Comment on above: Performed By: #### C BC #### [facility] [address] [place] [address] Dr. Dwight Waters Hematocrit (Bld) [Volume fraction] 48.2 % Normal 42.0-54.0 [facility] Comment on above: Performed By: #### C BC #### [facility] [address] [place] [address] Dr. Dwight Waters Hemoglobin (Bld) [Mass/Vol] 15.9 g/dL Normal 14.0-18.0 [facility] Comment on above: Performed By: #### C BC #### [facility] [address] [place] [address] Dr. Dwight Waters IG # 0.01 10e3/ul Normal 0.00-0.03 [facility] Comment on above: Performed By: #### C BC #### [facility] [address] [place] [address] Dr. Dwight Waters IG % 0.2 % Normal 0.0-0.5 [facility] Comment on above: Performed By: #### C BC #### [facility] [address] [place] [address] Dr. Dwight Waters LYMPH # 2.1 103/ul Normal 1.2-3.8 [facility] Comment on above: Performed By: #### C BC #### [facility] [address] [place] [address] Dr. Dwight Waters Lymphocytes/100 WBC (Bld) 37.4 % Normal 20.5-60.0 [facility] Comment on above: Performed By: #### C BC #### [facility] [address] [place] [address] Dr. Dwight Waters MANUAL DIFF REQ NO Normal [facility] Comment on above: Performed By: #### C BC #### [facility] [address] [place] [address] Dr. Dwight Waters MCH (RBC) [Entitic mass] 28.3 pg Normal 25.9-34.0 [facility] Comment on above: Performed By: #### C BC #### [facility] [address] [place] [address] Dr. Dwight Waters MCHC (RBC) [Mass/Vol] 33.0 g/dL Normal 29.9-35.2 [facility] Comment on above: Performed By: #### C BC #### [facility] [address] [place] [address] Dr. Dwight Waters MCV (RBC) [Entitic vol] 85.8 fL Normal 80.0-94.0 [facility] Comment on above: Performed By: #### C BC #### [facility] [address] [place] [address] Dr. Dwight Waters MONO # 0.6 103/ul Normal 0.3-0.8 [facility] Comment on above: Performed By: #### C BC #### [facility] [address] [place] [address] Dr. Dwight Waters Monocytes/100 WBC (Bld) 10.2 % Normal 1.7-12.0 [facility] Comment on above: Performed By: #### C BC #### [facility] [address] [place] [address] Dr. Dwight Waters NEUT # 2.7 103/ul Normal 1.4-6.5 [facility] Comment on above: Performed By: #### C BC #### [facility] [address] [address] [address] Dwight Waters Neutrophils/100 WBC (Bld) 47.8 % Normal 43.0-75.0 [facility] Comment on above: Performed By: #### C BC #### [facility] [address] [place] [address] Dr. Dwight Waters Platelet mean volume (Bld) [Entitic vol] 9.3 fL Critically low 9.5-13.5 [facility] Comment on above: Performed By: #### C BC #### [facility] [address] [place] [address] Dr. Dwight Waters PLT 241 103/ul Normal 150-450 [facility] Comment on above: Performed By: #### C BC #### [facility] [address] [place] [address] Dr. Dwight Waters RBC 5.62 106/ul Normal 4.70-6.10 [facility] Comment on above: Performed By: #### C BC #### [facility] [address] [place] [address] Dr. Dwight Waters WBC 5.7 103/ul Normal 4.0-11.0 [facility] Comment on above: Performed By: #### C BC #### [facility] [address] [place] [address] Dr. Dwight Waters GGTon 03-02-2023 Gamma glutamyl transferase [Catalytic activity/Vol] 25 U/L Normal 15-85 [facility] Comment on above: Performed By: #### U RTPCR #### [facility] [address] [place] [address] Dr. Dwight Waters MAGNESIUMon 03-02-2023 Magnesium [Mass/Vol] 1.6 mg/dL Critically low 1.8-2.4 [facility] Comment on above: Performed By: #### U RTPCR #### [facility] [address] [place] [address] Dr. Dwight Waters PHOSPHORUSon 03-02-2023 Phosphate [Mass/Vol] 3.6 mg/dL Normal 2.6-4.7 [facility] Comment on above: Performed By: #### U RTPCR #### [facility] [address] [address] [address] Dwight Waters PROF CHEM 8 (BAS METB)on Anion gap [Moles/Vol] 9.4 mmol/L Normal [facility] Comment on above: Performed By: #### U RTPCR #### [facility] [address] [place] [address] Dr. Dwight Waters Calcium [Mass/Vol] 9.3 mg/dL Normal 8.5-10.1 [facility] Comment on above: Performed By: #### U RTPCR #### [facility] [address] [place] [address] Dr. Dwight Waters Chloride [Moles/Vol] 108 mmol/L Critically high 98-107 [facility] Comment on above: Performed By: #### U RTPCR #### [facility] [address] [place] [address] Dr. Dwight Waters CO2 [Moles/Vol] 27.2 mmol/L Normal 21.0-32.0 [facility] Comment on above: Performed By: #### U RTPCR #### [facility] [address] [place] [address] Dr. Dwight Waters Creatinine [Mass/Vol] 1.12 mg/dL Normal 0.70-1.30 [facility] Comment on above: Performed By: #### U RTPCR #### [facility] [address] [place] [address] Dr. Dwight Waters EGFR-AF RWANDAN >60 Normal >=60 [facility] Comment on above: Performed By: #### U RTPCR #### [facility] [address] [place] [address] Dr. Dwight Waters EGFR-NON AF RWANDAN >60 Normal >=60 [facility] Comment on above: Performed By: #### U RTPCR #### [facility] [address] [place] [address] Dr. Dwight Waters Glucose [Mass/Vol] 113 mg/dL Critically high 74-106 [facility] Comment on above: Performed By: #### U RTPCR #### [facility] [address] [address] [address] Dwight Waters Potassium [Moles/Vol] 3.6 mmol/L Normal 3.5-5.1 [facility] Comment on above: Performed By: #### U RTPCR #### [facility] [address] [place] [address] Dr. Dwight Waters Sodium [Moles/Vol] 141 mmol/L Normal 136-145 [facility] Comment on above: Performed By: #### U RTPCR #### [facility] [address] [place] [address] Dr. Dwight Waters Urea nitrogen [Mass/Vol] 14.0 mg/dL Normal 7.0-18.0 [facility] Comment on above: Performed By: #### U RTPCR #### [facility] [address] [place] [address] Dr. Dwight Waters Urea nitrogen/Creatinine [Mass ratio] 12.5 mg/mg Normal [facility] Comment on above: Performed By: #### U RTPCR #### [facility] [address] [place] [address] Dr. Dwight Waters SGOTon 03-02-2023 AST [Catalytic activity/Vol] 20 U/L Normal 15-37 [facility] Comment on above: Performed By: #### U RTPCR #### [facility] [address] [place] [address] Dr. Dwight Waters SGPTon 03-02-2023 ALT [Catalytic activity/Vol] 30 U/L Normal 16-63 [facility] Comment on above: Performed By: #### U RTPCR #### [facility] [address] [place] [address] Dr. Dwight Waters URINE T PROTEIN CREAT RATIOo n 03-02-2023 Protein (U) [Mass/Vol] 10.3 mg/dL Normal <=12.0 [facility] Comment on above: Performed By: #### U RTPCR #### [facility] [address] [place] [address] Dr. Dwight Waters UR PROT CREAT RAT 0.15 Normal [facility] Comment on above: Performed By: #### U RTPCR #### [facility] [address] [place] [address] Dr. Dwight Waters URINE CREAT 68.96 mg/dL Normal 20.00-300.00 [facility] Comment on above: Performed By: #### U RTPCR #### [facility] [address] [place] [address] Dr. Dwight Waters BK VIRUS PCR QUANTon 023 BKV DNA QUANT PCR PLASMA Negative Normal Negative [facility] Comment on above: Result Comment: No B K DNA detected. . The linear range of the assay is 22 - 100,000,000 IU/mL. Performed By: #### C MP #### [facility] [address] [place] [address] Dr. Dwight Waters Log10 BKV DNA Plasma Normal [facility] Comment on above: Performed By: #### C MP #### [facility] [address] [place] [address] Dr. Dwight Waters FK506 (TACROLIMUS) WHOLE BLO ODon 12-31-2022 Tacrolimus (FK506), Blood 5.6 ng/mL Normal 2.0-20.0 [facility] Comment on above: Result Comment: Trou gh (immediately following transplant) 15.0 . Trough (steady state, 2 weeks or more after transplant): 3.0 - 8.0 . Performed by LC-MS/MS technology. Performed By: #### C MP #### [facility] [address] [place] [address] Dr. Dwight Waters ALKALINE PHOSPHAon ALP [Catalytic activity/Vol] 96 U/L Normal 46-116 [facility] Comment on above: Performed By: #### C BC #### [facility] [address] [place] [address] Dr. Dwight Waters BILIRUBIN CONJUGATED (DIRECT )on 12-29-2022 BILI, CONJUGATED 0.3 mg/dL Critically high 0.0-0.2 [facility] Comment on above: Performed By: #### C BC #### [facility] [address] [place] [address] Dr. Dwight Waters BILIRUBIN TOTALon 12-29-2022 Bilirubin [Mass/Vol] 1.1 mg/dL Critically high 0.2-1.0 [facility] Comment on above: Performed By: #### C BC #### [facility] [address] [place] [address] Dr. Dwight Waters CBC AUTO DIFFon 12-29-2022 BASO # 0.1 103/ul Normal 0.0-0.1 [facility] Comment on above: Performed By: #### C MP #### [facility] [address] [place] [address] Dr. Dwight Waters Basophils/100 WBC (Bld) 0.8 % Normal 0.2-2.0 [facility] Comment on above: Performed By: #### C MP #### [facility] [address] [place] [address] Dr. Dwight Waters EO # 0.2 103/ul Normal 0.0-0.7 [facility] Comment on above: Performed By: #### C MP #### [facility] [address] [place] [address] Dr. Dwight Waters Eosinophils/100 WBC (Bld) 3.0 % Normal 0.9-7.0 [facility] Comment on above: Performed By: #### C MP #### [facility] [address] [place] [address] Dr. Dwight Waters Erythrocyte distribution width (RBC) [Ratio] 12.9 % Normal 11.0-15.0 [facility] Comment on above: Performed By: #### C MP #### [facility] [address] [place] [address] Dr. Dwight Waters Hematocrit (Bld) [Volume fraction] 46.9 % Normal 42.0-54.0 [facility] Comment on above: Performed By: #### C MP #### [facility] [address] [place] [address] Dr. Dwight Waters Hemoglobin (Bld) [Mass/Vol] 16.1 g/dL Normal 14.0-18.0 [facility] Comment on above: Performed By: #### C MP #### [facility] [address] [place] [address] Dr. Dwight Waters IG # 0.01 10e3/ul Normal 0.00-0.03 [facility] Comment on above: Performed By: #### C MP #### [facility] [address] [place] [address] Dr. Dwight Waters IG % 0.2 % Normal 0.0-0.5 [facility] Comment on above: Performed By: #### C MP #### [facility] [address] [place] [address] Dr. Dwight Waters LYMPH # 1.8 103/ul Normal 1.2-3.8 [facility] Comment on above: Performed By: #### C MP #### [facility] [address] [place] [address] Dr. Dwight Waters Lymphocytes/100 WBC (Bld) 27.9 % Normal 20.5-60.0 [facility] Comment on above: Performed By: #### C MP #### [facility] [address] [place] [address] Dr. Dwight Waters MANUAL DIFF REQ NO Normal [facility] Comment on above: Performed By: #### C MP #### [facility] [address] [place] [address] Dr. Dwight Waters MCH (RBC) [Entitic mass] 28.5 pg Normal 25.9-34.0 [facility] Comment on above: Performed By: #### C MP #### [facility] [address] [place] [address] Dr. Dwight Waters MCHC (RBC) [Mass/Vol] 34.3 g/dL Normal 29.9-35.2 [facility] Comment on above: Performed By: #### C MP #### [facility] [address] [place] [address] Dr. Dwight Waters MCV (RBC) [Entitic vol] 83.2 fL Normal 80.0-94.0 [facility] Comment on above: Performed By: #### C MP #### [facility] [address] [place] [address] Dr. Dwight Waters MONO # 0.5 103/ul Normal 0.3-0.8 [facility] Comment on above: Performed By: #### C MP #### [facility] [address] [address] [address] Dwight Waters Monocytes/100 WBC (Bld) 8.1 % Normal 1.7-12.0 [facility] Comment on above: Performed By: #### C MP #### [facility] [address] [place] [address] Dr. Dwight Waters NEUT # 3.8 103/ul Normal 1.4-6.5 [facility] Comment on above: Performed By: #### C MP #### [facility] [address] [place] [address] Dr. Dwight Waters Neutrophils/100 WBC (Bld) 60.0 % Normal 43.0-75.0 [facility] Comment on above: Performed By: #### C MP #### [facility] [address] [place] [address] Dr. Dwight Waters Platelet mean volume (Bld) [Entitic vol] 9.2 fL Critically low 9.5-13.5 [facility] Comment on above: Performed By: #### C MP #### [facility] [address] [place] [address] Dr. Dwight Waters PLT 225 103/ul Normal 150-450 [facility] Comment on above: Performed By: #### C MP #### [facility] [address] [place] [address] Dr. Dwight Waters RBC 5.64 106/ul Normal 4.70-6.10 [facility] Comment on above: Performed By: #### C MP #### [facility] [address] [place] [address] Dr. Dwight Waters WBC 6.3 103/ul Normal 4.0-11.0 [facility] Comment on above: Performed By: #### C MP #### [facility] [address] [place] [address] Dr. Dwight Waters GGTon 12-29-2022 Gamma glutamyl transferase [Catalytic activity/Vol] 24 U/L Normal 15-85 [facility] Comment on above: Performed By: #### C MP #### [facility] [address] [address] [address] Dwight Waters LIPID PROFILEon 12-29-2022 CHOL-HDL RATIO NORM SEE BELOW Normal [facility] Comment on above: Result Comment: 3.3 - 4.4 LOW RISK 4.4 - 7.1 AVERAGE RISK 7.1 - 11.0 MODERATE RISK >11.0 HIGH RISK Performed By: #### U RTPCR #### [facility] [address] [address] [address] Dwight Waters Cholesterol [Mass/Vol] 87 mg/dL Normal <=200 [facility] Comment on above: Performed By: #### U RTPCR #### [facility] [address] [address] [address] Dwight Waters Cholesterol in HDL [Mass/Vol] 44 mg/dL Normal 40-60 [facility] Comment on above: Performed By: #### U RTPCR #### [facility] [address] [address] [address] Dwight Waters Cholesterol in LDL [Mass/Vol] 33.0 mg/dL Normal [facility] Comment on above: Performed By: #### U RTPCR #### [facility] [address] [address] [address] Dwight Waters Cholesterol.total/Ch olesterol in HDL [Mass ratio] 2.0 {ratio} Normal [facility] Comment on above: Performed By: #### U RTPCR #### [facility] [address] [address] [address] Dwight Waters HDL NORMAL > or = 60 mg/dl - LO W CARDIOVASCULAR RISK <40 mg/dl - HIGH CARDIOVASCULAR RISK Normal [facility] Comment on above: Performed By: #### U RTPCR #### [facility] [address] [address] [address] Dwight Waters LDL CALC NORMAL SEE BELOW Normal [facility] Comment on above: Result Comment: <100 mg/dl OPTIMAL 100 - 129 mg/dl NEAR OR ABOVE OPTIMAL 130 - 159 mg/dl BORDERLINE HIGH 160 - 189 mg/dl HIGH >190 mg/dl VERY HIGH Performed By: #### U RTPCR #### [facility] [address] [place] [address] Dr. Dwight Waters Triglyceride [Mass/Vol] 50 mg/dL Normal <=150 [facility] Comment on above: Performed By: #### U RTPCR #### [facility] [address] [place] [address] Dr. Dwight Waters VLDL CALC 10.0 mg/dL Normal [facility] Comment on above: Performed By: #### U RTPCR #### [facility] [address] [place] [address] Dr. Dwight Waters MAGNESIUMon 12-29-2022 Magnesium [Mass/Vol] 1.6 mg/dL Critically low 1.8-2.4 [facility] Comment on above: Performed By: #### C BC #### [facility] [address] [place] [address] Dr. Dwight Waters RENAL FUNCTION PANELon 12-29 Albumin [Mass/Vol] 3.9 g/dL Normal 3.4-5.0 [facility] Comment on above: Performed By: #### C BC #### [facility] [address] [place] [address] Dr. Dwight Waters Calcium [Mass/Vol] 9.2 mg/dL Normal 8.5-10.1 [facility] Comment on above: Performed By: #### C BC #### [facility] [address] [place] [address] Dr. Dwight Waters Chloride [Moles/Vol] 109 mmol/L Critically high 98-107 [facility] Comment on above: Performed By: #### C BC #### [facility] [address] [place] [address] Dr. Dwight Waters CO2 [Moles/Vol] 27.0 mmol/L Normal 21.0-32.0 [facility] Comment on above: Performed By: #### C BC #### [facility] [address] [place] [address] Dr. Dwight Waters Creatinine [Mass/Vol] 1.02 mg/dL Normal 0.70-1.30 [facility] Comment on above: Performed By: #### C BC #### [facility] [address] [place] [address] Dr. Dwight Waters EGFR-AF RWANDAN >60 Normal >=60 [facility] Comment on above: Performed By: #### C BC #### [facility] [address] [place] [address] Dr. Dwight Waters EGFR-NON AF RWANDAN >60 Normal >=60 [facility] Comment on above: Performed By: #### C BC #### [facility] [address] [place] [address] Dr. Dwight Waters Glucose [Mass/Vol] 117 mg/dL Critically high 74-106 [facility] Comment on above: Performed By: #### C BC #### [facility] [address] [place] [address] Dr. Dwight Waters Phosphate [Mass/Vol] 3.2 mg/dL Normal 2.6-4.7 [facility] Comment on above: Performed By: #### C BC #### [facility] [address] [place] [address] Dr. Dwight Waters Potassium [Moles/Vol] 4.1 mmol/L Normal 3.5-5.1 [facility] Comment on above: Performed By: #### C BC #### [facility] [address] [place] [address] Dr. Dwight Waters Sodium [Moles/Vol] 144 mmol/L Normal 136-145 [facility] Comment on above: Performed By: #### C BC #### [facility] [address] [place] [address] Dr. Dwight Waters Urea nitrogen [Mass/Vol] 13.0 mg/dL Normal 7.0-18.0 [facility] Comment on above: Performed By: #### C BC #### [facility] [address] [place] [address] Dr. Dwight Waters SGOTon 12-29-2022 AST [Catalytic activity/Vol] 21 U/L Normal 15-37 [facility] Comment on above: Performed By: #### C BC #### [facility] [address] [place] [address] Dr. Dwight Waters SGPTon 12-29-2022 ALT [Catalytic activity/Vol] 32 U/L Normal 16-63 [facility] Comment on above: Performed By: #### C BC #### [facility] [address] [place] [address] Dr. Dwight Waters URINE T PROTEIN CREAT RATIOo n 12-29-2022 Protein (U) [Mass/Vol] 14.3 mg/dL Critically high <=12.0 [facility] Comment on above: Performed By: #### U RTPCR #### [facility] [address] [place] [address] Dr. Dwight Waters UR PROT CREAT RAT 0.17 Normal [facility] Comment on above: Performed By: #### U RTPCR #### [facility] [address] [place] [address] Dr. Dwight Waters URINE CREAT 86.58 mg/dL Normal 20.00-300.00 [facility] Comment on above: Performed By: #### U RTPCR #### [facility] [address] [place] [address] Dr. Dwight Waters FK506 (TACROLIMUS) WHOLE BLO ODon 11-06-2022 Tacrolimus (FK506), Blood 4.9 ng/mL Normal 2.0-20.0 [facility] Comment on above: Result Comment: Trou gh (immediately following transplant) 15.0 . Trough (steady state, 2 weeks or more after transplant): 3.0 - 8.0 . Performed by LC-MS/MS technology. Performed By: #### U RTPCR #### [facility] [address] [place] [address] Dr. Dwight Waters ALKALINE PHOSPHAon 2 ALP [Catalytic activity/Vol] 86 U/L Normal 46-116 [facility] Comment on above: Performed By: #### U RTPCR #### [facility] [address] [place] [address] Dr. Dwight Waters BILIRUBIN CONJUGATED (DIRECT )on 11-04-2022 BILI, CONJUGATED 0.2 mg/dL Normal 0.0-0.2 [facility] Comment on above: Performed By: #### U RTPCR #### [facility] [address] [place] [address] Dr. Dwight Waters BILIRUBIN TOTALon 11-04-2022 Bilirubin [Mass/Vol] 0.8 mg/dL Normal 0.2-1.0 [facility] Comment on above: Performed By: #### U RTPCR #### [facility] [address] [place] [address] Dr. Dwight Waters CBC AUTO DIFFon 11-04-2022 BASO # 0.1 103/ul Normal 0.0-0.1 [facility] Comment on above: Performed By: #### U RTPCR #### [facility] [address] [place] [address] Dr. Dwight Waters Basophils/100 WBC (Bld) 0.9 % Normal 0.2-2.0 [facility] Comment on above: Performed By: #### U RTPCR #### [facility] [address] [place] [address] Dr. Dwight Waters EO # 0.2 103/ul Normal 0.0-0.7 [facility] Comment on above: Performed By: #### U RTPCR #### [facility] [address] [place] [address] Dr. Dwight Waters Eosinophils/100 WBC (Bld) 3.7 % Normal 0.9-7.0 [facility] Comment on above: Performed By: #### U RTPCR #### [facility] [address] [place] [address] Dr. Dwight Waters Erythrocyte distribution width (RBC) [Ratio] 12.9 % Normal 11.0-15.0 [facility] Comment on above: Performed By: #### U RTPCR #### [facility] [address] [place] [address] Dr. Dwight Waters Hematocrit (Bld) [Volume fraction] 48.3 % Normal 42.0-54.0 [facility] Comment on above: Performed By: #### U RTPCR #### [facility] [address] [place] [address] Dr. Dwight Waters Hemoglobin (Bld) [Mass/Vol] 15.6 g/dL Normal 14.0-18.0 [facility] Comment on above: Performed By: #### U RTPCR #### [facility] [address] [place] [address] Dr. Dwight Waters IG # 0.01 10e3/ul Normal 0.00-0.03 [facility] Comment on above: Performed By: #### U RTPCR #### [facility] [address] [place] [address] Dr. Dwight Waters IG % 0.2 % Normal 0.0-0.5 [facility] Comment on above: Performed By: #### U RTPCR #### [facility] [address] [place] [address] Dr. Dwight Waters LYMPH # 1.9 103/ul Normal 1.2-3.8 [facility] Comment on above: Performed By: #### U RTPCR #### [facility] [address] [place] [address] Dr. Dwight Waters Lymphocytes/100 WBC (Bld) 33.0 % Normal 20.5-60.0 [facility] Comment on above: Performed By: #### U RTPCR #### [facility] [address] [place] [address] Dr. Dwight Waters MANUAL DIFF REQ NO Normal [facility] Comment on above: Performed By: #### U RTPCR #### [facility] [address] [place] [address] Dr. Dwight Waters MCH (RBC) [Entitic mass] 27.6 pg Normal 25.9-34.0 [facility] Comment on above: Performed By: #### U RTPCR #### [facility] [address] [place] [address] Dr. Dwight Waters MCHC (RBC) [Mass/Vol] 32.3 g/dL Normal 29.9-35.2 [facility] Comment on above: Performed By: #### U RTPCR #### [facility] [address] [address] [address] Dwight Waters MCV (RBC) [Entitic vol] 85.5 fL Normal 80.0-94.0 [facility] Comment on above: Performed By: #### U RTPCR #### [facility] [address] [place] [address] Dr. Dwight Waters MONO # 0.5 103/ul Normal 0.3-0.8 [facility] Comment on above: Performed By: #### U RTPCR #### [facility] [address] [place] [address] Dr. Dwight Waters Monocytes/100 WBC (Bld) 8.8 % Normal 1.7-12.0 [facility] Comment on above: Performed By: #### U RTPCR #### [facility] [address] [place] [address] Dr. Dwight Waters NEUT # 3.1 103/ul Normal 1.4-6.5 [facility] Comment on above: Performed By: #### U RTPCR #### [facility] [address] [place] [address] Dr. Dwight Waters Neutrophils/100 WBC (Bld) 53.4 % Normal 43.0-75.0 [facility] Comment on above: Performed By: #### U RTPCR #### [facility] [address] [place] [address] Dr. Dwight Waters Platelet mean volume (Bld) [Entitic vol] 9.2 fL Critically low 9.5-13.5 [facility] Comment on above: Performed By: #### U RTPCR #### [facility] [address] [place] [address] Dr. Dwight Waters PLT 255 103/ul Normal 150-450 [facility] Comment on above: Performed By: #### U RTPCR #### [facility] [address] [place] [address] Dr. Dwight Waters RBC 5.65 106/ul Normal 4.70-6.10 [facility] Comment on above: Performed By: #### U RTPCR #### [facility] [address] [place] [address] Dr. Dwight Waters WBC 5.7 103/ul Normal 4.0-11.0 [facility] Comment on above: Performed By: #### U RTPCR #### [facility] [address] [place] [address] Dr. Dwight Waters GGTon 11-04-2022 Gamma glutamyl transferase [Catalytic activity/Vol] 22 U/L Normal 15-85 [facility] Comment on above: Performed By: #### U RTPCR #### [facility] [address] [place] [address] Dr. Dwight Waters MAGNESIUMon 11-04-2022 Magnesium [Mass/Vol] 1.8 mg/dL Normal 1.8-2.4 [facility] Comment on above: Performed By: #### U RTPCR #### [facility] [address] [place] [address] Dr. Dwight Waters RENAL FUNCTION PANELon 11-04 Albumin [Mass/Vol] 3.8 g/dL Normal 3.4-5.0 [facility] Comment on above: Performed By: #### U RTPCR #### [facility] [address] [place] [address] Dr. Dwight Waters Calcium [Mass/Vol] 9.3 mg/dL Normal 8.5-10.1 [facility] Comment on above: Performed By: #### U RTPCR #### [facility] [address] [place] [address] Dr. Dwight Waters Chloride [Moles/Vol] 107 mmol/L Normal 98-107 [facility] Comment on above: Performed By: #### U RTPCR #### [facility] [address] [place] [address] Dr. Dwight Waters CO2 [Moles/Vol] 29.2 mmol/L Normal 21.0-32.0 [facility] Comment on above: Performed By: #### U RTPCR #### [facility] [address] [place] [address] Dr. Dwight Waters Creatinine [Mass/Vol] 1.07 mg/dL Normal 0.70-1.30 [facility] Comment on above: Performed By: #### U RTPCR #### [facility] [address] [place] [address] Dr. Dwight Waters EGFR-AF RWANDAN >60 Normal >=60 [facility] Comment on above: Performed By: #### U RTPCR #### [facility] [address] [place] [address] Dr. Dwight Waters EGFR-NON AF RWANDAN >60 Normal >=60 [facility] Comment on above: Performed By: #### U RTPCR #### [facility] [address] [place] [address] Dr. Dwight Waters Glucose [Mass/Vol] 106 mg/dL Normal 74-106 [facility] Comment on above: Performed By: #### U RTPCR #### [facility] [address] [place] [address] Dr. Dwight Waters Phosphate [Mass/Vol] 2.8 mg/dL Normal 2.6-4.7 [facility] Comment on above: Performed By: #### U RTPCR #### [facility] [address] [place] [address] Dr. Dwight Waters Potassium [Moles/Vol] 4.1 mmol/L Normal 3.5-5.1 [facility] Comment on above: Performed By: #### U RTPCR #### [facility] [address] [place] [address] Dr. Dwight Waters Sodium [Moles/Vol] 143 mmol/L Normal 136-145 [facility] Comment on above: Performed By: #### U RTPCR #### [facility] [address] [place] [address] Dr. Dwight Waters Urea nitrogen [Mass/Vol] 12.0 mg/dL Normal 7.0-18.0 [facility] Comment on above: Performed By: #### U RTPCR #### [facility] [address] [place] [address] Dr. Dwight Waters SGAlicia 11-04-2022 AST [Catalytic activity/Vol] 19 U/L Normal 15-37 [facility] Comment on above: Performed By: #### U RTPCR #### [facility] [address] [place] [address] Dr. Dwight Waters SGPTon 11-04-2022 ALT [Catalytic activity/Vol] 28 U/L Normal 16-63 [facility] Comment on above: Performed By: #### U RTPCR #### [facility] [address] [place] [address] Dr. Dwight Waters URINE T PROTEIN CREAT RATIOo n 11-04-2022 Protein (U) [Mass/Vol] 10.7 mg/dL Normal <=12.0 [facility] Comment on above: Performed By: #### U RTPCR #### [facility] [address] [place] [address] Dr. Dwight Waters UR PROT CREAT RAT 0.13 Normal [facility] Comment on above: Performed By: #### U RTPCR #### [facility] [address] [place] [address] Dr. Dwight Waters URINE CREAT 84.50 mg/dL Normal 20.00-300.00 [facility] Comment on above: Performed By: #### U RTPCR #### [facility] [address] [place] [address] Dr. Dwight Waters FK506 (TACROLIMUS) WHOLE BLO ODon 09-18-2022 Tacrolimus (FK506), Blood 4.6 ng/mL Normal 2.0-20.0 [facility] Comment on above: Result Comment: Trou gh (immediately following transplant) 15.0 . Trough (steady state, 2 weeks or more after transplant): 3.0 - 8.0 . Performed by LC-MS/MS technology. Performed By: #### U RTPCR #### [facility] [address] [place] [address] Dr. Dwight Waters BK VIRUS PCR QUANTon 022 BKV DNA QUANT PCR PLASMA Negative Normal Negative [facility] Comment on above: Result Comment: No B K DNA detected. . The linear range of the assay is 22 - 100,000,000 IU/mL. Performed By: #### U RTPCR #### [facility] [address] [place] [address] Dr. Dwight Waters Log10 BKV DNA Plasma Normal [facility] Comment on above: Performed By: #### U RTPCR #### [facility] [address] [place] [address] Dr. Dwight Waters ALKALINE PHOSPHAon ALP [Catalytic activity/Vol] 92 U/L Normal 46-116 [facility] Comment on above: Performed By: #### U RTPCR #### [facility] [address] [place] [address] Dr. Dwight Waters BILIRUBIN CONJUGATED (DIRECT )on 09-15-2022 BILI, CONJUGATED 0.3 mg/dL Critically high 0.0-0.2 [facility] Comment on above: Performed By: #### U RTPCR #### [facility] [address] [place] [address] Dr. Dwight Waters BILIRUBIN TOTALon 09-15-2022 Bilirubin [Mass/Vol] 1.1 mg/dL Critically high 0.2-1.0 [facility] Comment on above: Performed By: #### U RTPCR #### [facility] [address] [place] [address] Dr. Dwight Waters CBC AUTO DIFFon 09-15-2022 BASO # 0.1 103/ul Normal 0.0-0.1 [facility] Comment on above: Performed By: #### C BC #### [facility] [address] [place] [address] Dr. Dwight Waters Basophils/100 WBC (Bld) 0.8 % Normal 0.2-2.0 [facility] Comment on above: Performed By: #### C BC #### [facility] [address] [place] [address] Dr. Dwight Waters EO # 0.2 103/ul Normal 0.0-0.7 [facility] Comment on above: Performed By: #### C BC #### [facility] [address] [place] [address] Dr. Dwight Waters Eosinophils/100 WBC (Bld) 3.5 % Normal 0.9-7.0 [facility] Comment on above: Performed By: #### C BC #### [facility] [address] [place] [address] Dr. Dwight Waters Erythrocyte distribution width (RBC) [Ratio] 13.0 % Normal 11.0-15.0 [facility] Comment on above: Performed By: #### C BC #### [facility] [address] [place] [address] Dr. Dwight Waters Hematocrit (Bld) [Volume fraction] 50.0 % Normal 42.0-54.0 [facility] Comment on above: Performed By: #### C BC #### [facility] [address] [place] [address] Dr. Dwight Waters Hemoglobin (Bld) [Mass/Vol] 16.0 g/dL Normal 14.0-18.0 [facility] Comment on above: Performed By: #### C BC #### [facility] [address] [place] [address] Dr. Dwight Waters IG # 0.02 10e3/ul Normal 0.00-0.03 [facility] Comment on above: Performed By: #### C BC #### [facility] [address] [place] [address] Dr. Dwight Waters IG % 0.3 % Normal 0.0-0.5 [facility] Comment on above: Performed By: #### C BC #### [facility] [address] [place] [address] Dr. Dwight Waters LYMPH # 1.8 103/ul Normal 1.2-3.8 [facility] Comment on above: Performed By: #### C BC #### [facility] [address] [place] [address] Dr. Dwight Waters Lymphocytes/100 WBC (Bld) 26.5 % Normal 20.5-60.0 [facility] Comment on above: Performed By: #### C BC #### [facility] [address] [place] [address] Dr. Dwight Waters MANUAL DIFF REQ NO Normal [facility] Comment on above: Performed By: #### C BC #### [facility] [address] [address] [address] Dwight Waters MCH (RBC) [Entitic mass] 28.1 pg Normal 25.9-34.0 [facility] Comment on above: Performed By: #### C BC #### [facility] [address] [place] [address] Dr. Dwight Waters MCHC (RBC) [Mass/Vol] 32.0 g/dL Normal 29.9-35.2 [facility] Comment on above: Performed By: #### C BC #### [facility] [address] [place] [address] Dr. Dwight Waters MCV (RBC) [Entitic vol] 87.9 fL Normal 80.0-94.0 [facility] Comment on above: Performed By: #### C BC #### [facility] [address] [place] [address] Dr. Dwight Waters MONO # 0.5 103/ul Normal 0.3-0.8 [facility] Comment on above: Performed By: #### C BC #### [facility] [address] [place] [address] Dr. Dwight Waters Monocytes/100 WBC (Bld) 8.1 % Normal 1.7-12.0 [facility] Comment on above: Performed By: #### C BC #### [facility] [address] [place] [address] Dr. Dwight Waters NEUT # 4.0 103/ul Normal 1.4-6.5 [facility] Comment on above: Performed By: #### C BC #### [facility] [address] [place] [address] Dr. Dwight Waters Neutrophils/100 WBC (Bld) 60.8 % Normal 43.0-75.0 [facility] Comment on above: Performed By: #### C BC #### [facility] [address] [place] [address] Dr. Dwight Waters Platelet mean volume (Bld) [Entitic vol] 9.4 fL Critically low 9.5-13.5 [facility] Comment on above: Performed By: #### C BC #### [facility] [address] [address] [address] Dwight Waters PLT 265 103/ul Normal 150-450 [facility] Comment on above: Performed By: #### C BC #### [facility] [address] [address] [address] Dwight Waters RBC 5.69 106/ul Normal 4.70-6.10 [facility] Comment on above: Performed By: #### C BC #### [facility] [address] [address] [address] Dwight Waters WBC 6.6 103/ul Normal 4.0-11.0 [facility] Comment on above: Performed By: #### C BC #### [facility] [address] [place] [address] Dr. Dwight Waters GGTon 09-15-2022 Gamma glutamyl transferase [Catalytic activity/Vol] 23 U/L Normal 15-85 [facility] Comment on above: Performed By: #### U RTPCR #### [facility] [address] [place] [address] Dr. Dwight Waters MAGNESIUMon 09-15-2022 Magnesium [Mass/Vol] 1.8 mg/dL Normal 1.8-2.4 [facility] Comment on above: Performed By: #### U RTPCR #### [facility] [address] [place] [address] Dr. Dwight Waters RENAL FUNCTION PANELon 09-15 Albumin [Mass/Vol] 4.1 g/dL Normal 3.4-5.0 [facility] Comment on above: Performed By: #### C BC #### [facility] [address] [place] [address] Dr. Dwight Waters Calcium [Mass/Vol] 9.3 mg/dL Normal 8.5-10.1 [facility] Comment on above: Performed By: #### C BC #### [facility] [address] [place] [address] Dr. Dwight Waters Chloride [Moles/Vol] 107 mmol/L Normal 98-107 [facility] Comment on above: Performed By: #### C BC #### [facility] [address] [address] [address] Dwight Waters CO2 [Moles/Vol] 25.6 mmol/L Normal 21.0-32.0 [facility] Comment on above: Performed By: #### C BC #### [facility] [address] [address] [address] Dwight Waters Creatinine [Mass/Vol] 1.01 mg/dL Normal 0.70-1.30 [facility] Comment on above: Performed By: #### C BC #### [facility] [address] [address] [address] Dwight Waters EGFR-AF RWANDAN >60 Normal >=60 [facility] Comment on above: Performed By: #### C BC #### [facility] [address] [place] [address] Dr. Dwight Waters EGFR-NON AF RWANDAN >60 Normal >=60 [facility] Comment on above: Performed By: #### C BC #### [facility] [address] [address] [address] Dwight Waters Glucose [Mass/Vol] 119 mg/dL Critically high 74-106 [facility] Comment on above: Performed By: #### C BC #### [facility] [address] [address] [address] Dwight Waters Phosphate [Mass/Vol] 2.8 mg/dL Normal 2.6-4.7 [facility] Comment on above: Performed By: #### C BC #### [facility] [address] [address] [address] Dwight Waters Potassium [Moles/Vol] 4.0 mmol/L Normal 3.5-5.1 [facility] Comment on above: Performed By: #### C BC #### [facility] [address] [address] [address] Dwight Waters Sodium [Moles/Vol] 141 mmol/L Normal 136-145 [facility] Comment on above: Performed By: #### C BC #### [facility] [address] [place] [address] Dr. Dwight Waters Urea nitrogen [Mass/Vol] 15.0 mg/dL Normal 7.0-18.0 [facility] Comment on above: Performed By: #### C BC #### [facility] [address] [place] [address] Dr. Dwight Waters SGOTon 09-15-2022 AST [Catalytic activity/Vol] 18 U/L Normal 15-37 [facility] Comment on above: Performed By: #### U RTPCR #### [facility] [address] [place] [address] Dr. Dwight Waters SGPTon 09-15-2022 ALT [Catalytic activity/Vol] 32 U/L Normal 16-63 [facility] Comment on above: Performed By: #### C BC #### [facility] [address] [place] [address] Dr. Dwight Waters URINE T PROTEIN CREAT RATIOo n 09-15-2022 Protein (U) [Mass/Vol] 14.1 mg/dL Critically high <=12.0 [facility] Comment on above: Performed By: #### U RTPCR #### [facility] [address] [place] [address] Dr. Dwight Waters UR PROT CREAT RAT 0.14 Normal [facility] Comment on above: Performed By: #### U RTPCR #### [facility] [address] [place] [address] Dr. Dwight Waters URINE CREAT 98.89 mg/dL Normal 20.00-300.00 [facility] Comment on above: Performed By: #### U RTPCR #### [facility] [address] [place] [address] Dr. Dwight Waters US CAROTID ART BILon [...] JIMENEZ Date: 2022-08-28 13:20 Normal [facility] FK506 (TACROLIMUS) WHOLE BLO ODon 08-17-2022 Tacrolimus (FK506), Blood 9.9 ng/mL Normal 2.0-20.0 [facility] Comment on above: Result Comment: Trou gh (immediately following transplant) 15.0 . Trough (steady state, 2 weeks or more after transplant): 3.0 - 8.0 . Performed by LC-MS/MS technology. Performed By: #### F K506T #### [facility] [address] [place] [address] Dr. Dwight Waters BK VIRUS PCR QUANTon 022 BKV DNA QUANT PCR PLASMA Negative Normal Negative [facility] Comment on above: Result Comment: No B K DNA detected. . The linear range of the assay is 22 - 100,000,000 IU/mL. Performed By: #### U RTPCR #### [facility] [address] [place] [address] Dr. Dwight Waters Log10 BKV DNA Plasma Normal [facility] Comment on above: Performed By: #### U RTPCR #### [facility] [address] [place] [address] Dr. Dwight Waters ALBUMINon 08-14-2022 Albumin [Mass/Vol] 4.2 g/dL Normal 3.4-5.0 [facility] Comment on above: Performed By: #### F K506T #### [facility] [address] [place] [address] Dr. Dwight Waters ALKALINE PHOSPHAon ALP [Catalytic activity/Vol] 92 U/L Normal 46-116 [facility] Comment on above: Performed By: #### C BC #### [facility] [address] [place] [address] Dr. Dwight Waters BILIRUBIN CONJUGATED (DIRECT )on 08-14-2022 BILI, CONJUGATED 0.3 mg/dL Critically high 0.0-0.2 [facility] Comment on above: Performed By: #### F K506T #### [facility] [address] [place] [address] Dr. Dwight Waters BILIRUBIN TOTALon 08-14-2022 Bilirubin [Mass/Vol] 1.5 mg/dL Critically high 0.2-1.0 [facility] Comment on above: Performed By: #### F K506T #### [facility] [address] [place] [address] Dr. Dwight Waters BUNon 08-14-2022 Urea nitrogen [Mass/Vol] 11.0 mg/dL Normal 7.0-18.0 [facility] Comment on above: Performed By: #### C BC #### [facility] [address] [place] [address] Dr. Dwight Waters CALCIUMon 08-14-2022 Calcium [Mass/Vol] 9.4 mg/dL Normal 8.5-10.1 [facility] Comment on above: Performed By: #### F K506T #### [facility] [address] [place] [address] Dr. Dwight Waters CBC AUTO DIFFon 08-14-2022 BASO # 0.0 103/ul Normal 0.0-0.1 [facility] Comment on above: Performed By: #### C MP #### [facility] [address] [place] [address] Dr. Dwight Waters Basophils/100 WBC (Bld) 0.5 % Normal 0.2-2.0 [facility] Comment on above: Performed By: #### C MP #### [facility] [address] [place] [address] Dr. Dwight Waters EO # 0.2 103/ul Normal 0.0-0.7 [facility] Comment on above: Performed By: #### C MP #### [facility] [address] [place] [address] Dr. Dwight Waters Eosinophils/100 WBC (Bld) 2.6 % Normal 0.9-7.0 [facility] Comment on above: Performed By: #### C MP #### [facility] [address] [place] [address] Dr. Dwight Waters Erythrocyte distribution width (RBC) [Ratio] 13.1 % Normal 11.0-15.0 [facility] Comment on above: Performed By: #### C MP #### [facility] [address] [place] [address] Dr. Dwight Waters Hematocrit (Bld) [Volume fraction] 47.0 % Normal 42.0-54.0 [facility] Comment on above: Performed By: #### C MP #### [facility] [address] [place] [address] Dr. Dwight Waters Hemoglobin (Bld) [Mass/Vol] 15.3 g/dL Normal 14.0-18.0 [facility] Comment on above: Performed By: #### C MP #### [facility] [address] [place] [address] Dr. Dwight Waters IG # 0.01 10e3/ul Normal 0.00-0.03 [facility] Comment on above: Performed By: #### C MP #### [facility] [address] [place] [address] Dr. Dwight Waters IG % 0.1 % Normal 0.0-0.5 [facility] Comment on above: Performed By: #### C MP #### [facility] [address] [place] [address] Dr. Dwight Waters LYMPH # 2.3 103/ul Normal 1.2-3.8 [facility] Comment on above: Performed By: #### C MP #### [facility] [address] [place] [address] Dr. Dwight Waters Lymphocytes/100 WBC (Bld) 29.8 % Normal 20.5-60.0 [facility] Comment on above: Performed By: #### C MP #### [facility] [address] [place] [address] Dr. Dwight Waters MANUAL DIFF REQ NO Normal [facility] Comment on above: Performed By: #### C MP #### [facility] [address] [place] [address] Dr. Dwight Waters MCH (RBC) [Entitic mass] 28.2 pg Normal 25.9-34.0 [facility] Comment on above: Performed By: #### C MP #### [facility] [address] [place] [address] Dr. Dwight Waters MCHC (RBC) [Mass/Vol] 32.6 g/dL Normal 29.9-35.2 [facility] Comment on above: Performed By: #### C MP #### [facility] [address] [place] [address] Dr. Dwight Waters MCV (RBC) [Entitic vol] 86.7 fL Normal 80.0-94.0 [facility] Comment on above: Performed By: #### C MP #### [facility] [address] [place] [address] Dr. Dwight Waters MONO # 0.7 103/ul Normal 0.3-0.8 [facility] Comment on above: Performed By: #### C MP #### [facility] [address] [place] [address] Dr. Dwight Waters Monocytes/100 WBC (Bld) 8.5 % Normal 1.7-12.0 [facility] Comment on above: Performed By: #### C MP #### [facility] [address] [place] [address] Dr. Dwight Waters NEUT # 4.5 103/ul Normal 1.4-6.5 [facility] Comment on above: Performed By: #### C MP #### [facility] [address] [place] [address] Dr. Dwight Waters Neutrophils/100 WBC (Bld) 58.5 % Normal 43.0-75.0 [facility] Comment on above: Performed By: #### C MP #### [facility] [address] [place] [address] Dr. Dwight Waters Platelet mean volume (Bld) [Entitic vol] 9.7 fL Normal 9.5-13.5 [facility] Comment on above: Performed By: #### C MP #### [facility] [address] [place] [address] Dr. Dwight Waters PLT 266 103/ul Normal 150-450 [facility] Comment on above: Performed By: #### C MP #### [facility] [address] [place] [address] Dr. Dwight Waters RBC 5.42 106/ul Normal 4.70-6.10 [facility] Comment on above: Performed By: #### C MP #### [facility] [address] [place] [address] Dr. Dwight Waters WBC 7.6 103/ul Normal 4.0-11.0 [facility] Comment on above: Performed By: #### C MP #### [facility] [address] [place] [address] Dr. Dwight Waters CHLORIDEon 08-14-2022 Chloride [Moles/Vol] 104 mmol/L Normal 98-107 [facility] Comment on above: Performed By: #### C BC #### [facility] [address] [place] [address] Dr. Dwight Waters CO2on 08-14-2022 CO2 [Moles/Vol] 27.9 mmol/L Normal 21.0-32.0 [facility] Comment on above: Performed By: #### C BC #### [facility] [address] [place] [address] Dr. Dwight Waters CREATININEon 08-14-2022 Creatinine [Mass/Vol] 1.08 mg/dL Normal 0.70-1.30 [facility] Comment on above: Performed By: #### C BC #### [facility] [address] [place] [address] Dr. Dwight Waters EGFR-AF RWANDAN >60 Normal >=60 [facility] Comment on above: Performed By: #### C BC #### [facility] [address] [place] [address] Dr. Dwight Waters EGFR-NON AF RWANDAN >60 Normal >=60 [facility] Comment on above: Performed By: #### C BC #### [facility] [address] [place] [address] Dr. Dwight Waters GGTon 08-14-2022 Gamma glutamyl transferase [Catalytic activity/Vol] 24 U/L Normal 15-85 [facility] Comment on above: Performed By: #### F [id number] #### [facility] [address] [place] [address] Dr. Dwight Waters GLUCOSE BLOODon 08-14-2022 Glucose [Mass/Vol] 111 mg/dL Critically high 74-106 [facility] Comment on above: Performed By: #### C BC #### [facility] [address] [place] [address] Dr. Dwight Waters MAGNESIUMon 08-14-2022 Magnesium [Mass/Vol] 1.4 mg/dL Critically low 1.8-2.4 [facility] Comment on above: Performed By: #### C BC #### [facility] [address] [place] [address] Dr. Dwight Waters NAon 08-14-2022 Sodium [Moles/Vol] 140 mmol/L Normal 136-145 [facility] Comment on above: Performed By: #### F [id number] #### [facility] [address] [place] [address] Dr. Dwight Waters PHOSPHORUSon 08-14-2022 Phosphate [Mass/Vol] 3.1 mg/dL Normal 2.6-4.7 [facility] Comment on above: Performed By: #### C BC #### [facility] [address] [place] [address] Dr. Dwight Waters POTASSIUMon 08-14-2022 Potassium [Moles/Vol] 3.5 mmol/L Normal 3.5-5.1 [facility] Comment on above: Performed By: #### C BC #### [facility] [address] [place] [address] Dr. Dwight Waters SGOTon 08-14-2022 AST [Catalytic activity/Vol] 17 U/L Normal 15-37 [facility] Comment on above: Performed By: #### F [id number] #### [facility] [address] [place] [address] Dr. Dwight Waters SGPTon 08-14-2022 ALT [Catalytic activity/Vol] 22 U/L Normal 16-63 [facility] Comment on above: Performed By: #### F [id number] #### [facility] [address] [place] [address] Dr. Dwight Waters URINE T PROTEIN CREAT RATIOo n 08-14-2022 Protein (U) [Mass/Vol] 10.7 mg/dL Normal <=12.0 [facility] Comment on above: Performed By: #### F [id number] #### [facility] [address] [place] [address] Dr. wDight Waters UR PROT CREAT RAT 0.10 Normal [facility] Comment on above: Performed By: #### F K506T #### [facility] [address] [place] [address] Dr. Dwight Waters URINE CREAT 104.28 mg/dL Normal 20.00-300.00 [facility] Comment on above: Performed By: #### F [id number] #### [facility] [address] [place] [address] Dr. Dwight Waters NEPHROSTOMY TUBE REMOVALon 0 [...] physician present for entire procedure: yes U [facility] Radiology Study observation (narrative) [facility] FK506 (TACROLIMUS) WHOLE BLO ODon 07-06-2022 Tacrolimus (FK506), Blood 9.5 ng/mL Normal 2.0-20.0 [facility] Comment on above: Result Comment: Trou gh (immediately following transplant) 15.0 . Trough (steady state, 2 weeks or more after transplant): 3.0 - 8.0 . Performed by LC-MS/MS technology. Performed By: #### C MP #### [facility] [address] [place] [address] Dr. Dwight Waters ALBUMINon 07-03-2022 Albumin [Mass/Vol] 3.7 g/dL Normal 3.4-5.0 [facility] Comment on above: Performed By: #### U RTPCR #### [facility] [address] [place] [address] Dr. Dwight Waters ALKALINE PHOSPHAon ALP [Catalytic activity/Vol] 76 U/L Normal 46-116 [facility] Comment on above: Performed By: #### U RTPCR #### [facility] [address] [place] [address] Dr. Dwight Waters BILIRUBIN CONJUGATED (DIRECT )on 07-03-2022 BILI, CONJUGATED 0.3 mg/dL Critically high 0.0-0.2 [facility] Comment on above: Performed By: #### C BC #### [facility] [address] [place] [address] Dr. Dwight Waters BILIRUBIN TOTALon 07-03-2022 Bilirubin [Mass/Vol] 1.4 mg/dL Critically high 0.2-1.0 [facility] Comment on above: Performed By: #### C BC #### [facility] [address] [place] [address] Dr. Dwight Waters BUNon 07-03-2022 Urea nitrogen [Mass/Vol] 15.0 mg/dL Normal 7.0-18.0 [facility] Comment on above: Performed By: #### C BC #### [facility] [address] [place] [address] Dr. Dwight Waters CALCIUMon 07-03-2022 Calcium [Mass/Vol] 9.4 mg/dL Normal 8.5-10.1 [facility] Comment on above: Performed By: #### U RTPCR #### [facility] [address] [place] [address] Dr. Dwight Waters CBC AUTO DIFFon 07-03-2022 BASO # 0.0 103/ul Normal 0.0-0.1 [facility] Comment on above: Performed By: #### U RTPCR #### [facility] [address] [place] [address] Dr. Dwight Waters Basophils/100 WBC (Bld) 0.6 % Normal 0.2-2.0 [facility] Comment on above: Performed By: #### U RTPCR #### [facility] [address] [place] [address] Dr. Dwight Waters EO # 0.2 103/ul Normal 0.0-0.7 [facility] Comment on above: Performed By: #### U RTPCR #### [facility] [address] [place] [address] Dr. Dwight Waters Eosinophils/100 WBC (Bld) 3.5 % Normal 0.9-7.0 [facility] Comment on above: Performed By: #### U RTPCR #### [facility] [address] [place] [address] Dr. Dwight Waters Erythrocyte distribution width (RBC) [Ratio] 12.9 % Normal 11.0-15.0 [facility] Comment on above: Performed By: #### U RTPCR #### [facility] [address] [place] [address] Dr. Dwight Waters Hematocrit (Bld) [Volume fraction] 44.2 % Normal 42.0-54.0 [facility] Comment on above: Performed By: #### U RTPCR #### [facility] [address] [place] [address] Dr. Dwigth Waters Hemoglobin (Bld) [Mass/Vol] 14.6 g/dL Normal 14.0-18.0 [facility] Comment on above: Performed By: #### U RTPCR #### [facility] [address] [place] [address] Dr. Dwight Waters IG # 0.02 10e3/ul Normal 0.00-0.03 [facility] Comment on above: Performed By: #### U RTPCR #### [facility] [address] [place] [address] Dr. Dwight Waters IG % 0.3 % Normal 0.0-0.5 [facility] Comment on above: Performed By: #### U RTPCR #### [facility] [address] [place] [address] Dr. Dwight Waters LYMPH # 2.0 103/ul Normal 1.2-3.8 [facility] Comment on above: Performed By: #### U RTPCR #### [facility] [address] [place] [address] Dr. Dwight Waters Lymphocytes/100 WBC (Bld) 28.4 % Normal 20.5-60.0 [facility] Comment on above: Performed By: #### U RTPCR #### [facility] [address] [place] [address] Dr. Dwight Waters MANUAL DIFF REQ NO Normal [facility] Comment on above: Performed By: #### U RTPCR #### [facility] [address] [place] [address] Dr. Dwight Waters MCH (RBC) [Entitic mass] 28.6 pg Normal 25.9-34.0 [facility] Comment on above: Performed By: #### U RTPCR #### [facility] [address] [place] [address] Dr. Dwight Waters MCHC (RBC) [Mass/Vol] 33.0 g/dL Normal 29.9-35.2 [facility] Comment on above: Performed By: #### U RTPCR #### [facility] [address] [place] [address] Dr. Dwight Waters MCV (RBC) [Entitic vol] 86.7 fL Normal 80.0-94.0 [facility] Comment on above: Performed By: #### U RTPCR #### [facility] [address] [place] [address] Dr. Dwight Waters MONO # 0.6 103/ul Normal 0.3-0.8 [facility] Comment on above: Performed By: #### U RTPCR #### [facility] [address] [place] [address] Dr. Dwight Waters Monocytes/100 WBC (Bld) 9.1 % Normal 1.7-12.0 [facility] Comment on above: Performed By: #### U RTPCR #### [facility] [address] [place] [address] Dr. Dwight Waters NEUT # 4.0 103/ul Normal 1.4-6.5 [facility] Comment on above: Performed By: #### U RTPCR #### [facility] [address] [place] [address] Dr. Dwight Waters Neutrophils/100 WBC (Bld) 58.1 % Normal 43.0-75.0 [facility] Comment on above: Performed By: #### U RTPCR #### [facility] [address] [place] [address] Dr. Dwight Waters Platelet mean volume (Bld) [Entitic vol] 9.5 fL Normal 9.5-13.5 [facility] Comment on above: Performed By: #### U RTPCR #### [facility] [address] [place] [address] Dr. Dwight Waters PLT 292 103/ul Normal 150-450 [facility] Comment on above: Performed By: #### U RTPCR #### [facility] [address] [place] [address] Dr. Dwight Waters RBC 5.10 106/ul Normal 4.70-6.10 [facility] Comment on above: Performed By: #### U RTPCR #### [facility] [address] [place] [address] Dr. Dwight Waters WBC 6.9 103/ul Normal 4.0-11.0 [facility] Comment on above: Performed By: #### U RTPCR #### [facility] [address] [place] [address] Dr. Dwight Waters CHLORIDEon 07-03-2022 Chloride [Moles/Vol] 108 mmol/L Critically high 98-107 [facility] Comment on above: Performed By: #### C BC #### [facility] [address] [place] [address] Dr. Dwight Waters CO2on 07-03-2022 CO2 [Moles/Vol] 25.2 mmol/L Normal 21.0-32.0 [facility] Comment on above: Performed By: #### C BC #### [facility] [address] [place] [address] Dr. Dwight Waters CREATININEon 07-03-2022 Creatinine [Mass/Vol] 1.03 mg/dL Normal 0.70-1.30 [facility] Comment on above: Performed By: #### U RTPCR #### [facility] [address] [place] [address] Dr. Dwight Waters EGFR-AF RWANDAN >60 Normal >=60 [facility] Comment on above: Performed By: #### U RTPCR #### [facility] [address] [place] [address] Dr. Dwight Waters EGFR-NON AF RWANDAN >60 Normal >=60 [facility] Comment on above: Performed By: #### U RTPCR #### [facility] [address] [place] [address] Dr. Dwight Waters GGTon 07-03-2022 Gamma glutamyl transferase [Catalytic activity/Vol] 31 U/L Normal 15-85 [facility] Comment on above: Performed By: #### U RTPCR #### [facility] [address] [place] [address] Dr. Dwight Waters GLUCOSE BLOODon 07-03-2022 Glucose [Mass/Vol] 119 mg/dL Critically high 74-106 [facility] Comment on above: Performed By: #### U RTPCR #### [facility] [address] [place] [address] Dr. Dwight Waters MAGNESIUMon 07-03-2022 Magnesium [Mass/Vol] 1.4 mg/dL Critically low 1.8-2.4 [facility] Comment on above: Performed By: #### C BC #### [facility] [address] [place] [address] Dr. Dwight Waters NAon 07-03-2022 Sodium [Moles/Vol] 142 mmol/L Normal 136-145 [facility] Comment on above: Performed By: #### C MP #### [facility] [facility] [address] [place] [address] Dr. Dwight Waters PHOSPHORUSon 07-03-2022 Phosphate [Mass/Vol] 3.4 mg/dL Normal 2.6-4.7 [facility] Comment on above: Performed By: #### C BC #### [facility] [address] [place] [address] Dr. Dwight Waters POTASSIUMon 07-03-2022 Potassium [Moles/Vol] 4.1 mmol/L Normal 3.5-5.1 [facility] Comment on above: Performed By: #### C BC #### [facility] [address] [place] [address] Dr. Dwight Waters SGOTon 07-03-2022 AST [Catalytic activity/Vol] 14 U/L Critically low 15-37 [facility] Comment on above: Performed By: #### C BC #### [facility] [address] [place] [address] Dr. Dwight Waters SGPTon 07-03-2022 ALT [Catalytic activity/Vol] 25 U/L Normal 16-63 [facility] Comment on above: Performed By: #### C BC #### [facility] [address] [place] [address] Dr. Dwight Waters US KIDNEYSon 07-03-2022 US KIDNEYS Ultrasound kidneys, bilateral HISTORY: Transplant of kidney , pain in the right lower quadrant COMPARISON: None. TECHNIQUE: Transabdominal ultrasound imaging of both kidneys was performed. FINDINGS: The [place] kidneys are diffusely echogenic and atrophic with cortical thinning. The right kidney measures 8.3 x 3.5 x 4.07 m and the left measures 9.9 x 3.8 x 3.6 cm. No hydronephrosis of the [place] kidneys. There is a renal transplant in [...] stone involving the renal transplant. 2. Atrophic [place] kidneys. 3. Normal bladder. Electronically authenticated by: ARCELIA PIZARRO Date: 2022-07-03 17:[address] [facility] [address] Abdomen and Pelvis WO con traston 06-27-2022 IMPRESSION: 1. Both [place] kidneys are atrophic with improvement in right-sided [...] Adrenals: Adrenal glands are unremarkable. Kidneys: Both [place] kidneys are atrophic. Interval improvement in right [place] kidney hydronephrosis since May 15, 2022. Status [...] Adrenals: Adrenal glands are unremarkable. Kidneys: Both [place] kidneys are atrophic. Interval improvement in right [place] kidney hydronephrosis since May 15, 2022. Status [...] aggressive osseous lesions. IMPRESSION IMPRESSION: 1. Both [place] kidneys are atrophic with improvement in right-sided hydronephrosis since May 15, 2022. 2. 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 No hydronephrosis. No discrete perinephric collection. 3. Partially imaged postsurgical changes related to prior liver transplant. 4. The bladder is decompressed, limiting evaluation. [facility] Radiology [facility]narrative[facility] WO con trastOrdered By: Gera Lu on 06-27-2022 [facility] Work Phone: CBC AUTO DIFFon 06-18-2022 BASO # 0.0 103/ul Normal 0.0-0.1 [facility] Comment on above: Performed By: #### U RTPCR #### [facility] [address] [place] [address] Dr. Dwight Waters Basophils/100 WBC (Bld) 0.5 % Normal 0.2-2.0 [facility] Comment on above: Performed By: #### U RTPCR #### [facility] [address] [place] [address] Dr. Dwight Waters EO # 0.2 103/ul Normal 0.0-0.7 [facility] Comment on above: Performed By: #### U RTPCR #### [facility] [address] [place] [address] Dr. Dwight Waters Eosinophils/100 WBC (Bld) 2.3 % Normal 0.9-7.0 [facility] Comment on above: Performed By: #### U RTPCR #### [facility] [address] [place] [address] Dr. Dwight Waters Erythrocyte distribution width (RBC) [Ratio] 12.9 % Normal 11.0-15.0 [facility] Comment on above: Performed By: #### U RTPCR #### [facility] [address] [place] [address] Dr. Dwight Waters Hematocrit (Bld) [Volume fraction] 41.2 % Critically low 42.0-54.0 [facility] Comment on above: Performed By: #### U RTPCR #### [facility] [address] [place] [address] Dr. Dwight Waters Hemoglobin (Bld) [Mass/Vol] 13.3 g/dL Critically low 14.0-18.0 [facility] Comment on above: Performed By: #### U RTPCR #### [facility] [address] [place] [address] Dr. Dwight Waters IG # 0.04 10e3/ul Critically high 0.00-0.03 [facility] Comment on above: Performed By: #### U RTPCR #### [facility] [address] [place] [address] Dr. Dwight Waters IG % 0.5 % Normal 0.0-0.5 [facility] Comment on above: Performed By: #### U RTPCR #### [facility] [address] [place] [address] Dr. Dwight Waters LYMPH # 2.0 103/ul Normal 1.2-3.8 [facility] Comment on above: Performed By: #### U RTPCR #### [facility] [address] [place] [address] Dr. Dwight Waters Lymphocytes/100 WBC (Bld) 22.9 % Normal 20.5-60.0 [facility] Comment on above: Performed By: #### U RTPCR #### [facility] [address] [place] [address] Dr. Dwight Waters MANUAL DIFF REQ NO Normal [facility] Comment on above: Performed By: #### U RTPCR #### [facility] [address] [place] [address] Dr. Dwight Waters MCH (RBC) [Entitic mass] 28.7 pg Normal 25.9-34.0 [facility] Comment on above: Performed By: #### U RTPCR #### [facility] [address] [place] [address] Dr. Dwight Waters MCHC (RBC) [Mass/Vol] 32.3 g/dL Normal 29.9-35.2 [facility] Comment on above: Performed By: #### U RTPCR #### [facility] [address] [place] [address] Dr. Dwight Waters MCV (RBC) [Entitic vol] 88.8 fL Normal 80.0-94.0 [facility] Comment on above: Performed By: #### U RTPCR #### [facility] [address] [place] [address] Dr. Dwight Waters MONO # 0.8 103/ul Normal 0.3-0.8 [facility] Comment on above: Performed By: #### U RTPCR #### [facility] [address] [place] [address] Dr. Dwight Waters Monocytes/100 WBC (Bld) 9.7 % Normal 1.7-12.0 [facility] Comment on above: Performed By: #### U RTPCR #### [facility] [address] [place] [address] Dr. Dwight Waters NEUT # 5.6 103/ul Normal 1.4-6.5 [facility] Comment on above: Performed By: #### U RTPCR #### [facility] [address] [place] [address] Dr. Dwight Waters Neutrophils/100 WBC (Bld) 64.1 % Normal 43.0-75.0 [facility] Comment on above: Performed By: #### U RTPCR #### [facility] [address] [place] [address] Dr. Dwight Waters Platelet mean volume (Bld) [Entitic vol] 10.0 fL Normal 9.5-13.5 [facility] Comment on above: Performed By: #### U RTPCR #### [facility] [address] [place] [address] Dr. Dwight Waters PLT 270 103/ul Normal 150-450 [facility] Comment on above: Performed By: #### U RTPCR #### [facility] [address] [place] [address] Dr. Dwight Waters RBC 4.64 106/ul Critically low 4.70-6.10 [facility] Comment on above: Performed By: #### U RTPCR #### [facility] [address] [place] [address] Dr. Dwight Waters WBC 8.7 103/ul Normal 4.0-11.0 [facility] Comment on above: Performed By: #### U RTPCR #### [facility] [address] [place] [address] Dr. Dwight Waters CULTURE URINEon 06-18-2022 CULTURE URINE Culture Observations : NO GROWTH. Normal [facility] Comment on above: Performed By: #### U RTPCR #### [facility] [address] [place] [address] Dr. Dwight Waters Covid-19 PCR (CVDTB)on 05-31 SARS-CoV-2 (COVID-19) RNA ESTELITA+probe Ql (Unsp spec) Not detected Normal NOT DETECTED [facility] Comment on above: Result Comment: [...] for this test is supported by the [employer] of [employer] and Human Service's declaration that [...] Performed By: #### C BC #### [facility] [address] [place] [address] Dr. Dwight Waters ER URINE PROFILEon 2 Bilirubin Ql (U) Negative Normal NEGATIVE [facility] Comment on above: Performed By: #### U RTPCR #### [facility] [address] [place] [address] Dr. Dwight Waters Clarity (U) CLEAR Normal CLEAR [facility] Comment on above: Performed By: #### U RTPCR #### [facility] [address] [place] [address] Dr. Dwight Waters Color (U) YELLOW Normal YELLOW [facility] Comment on above: Performed By: #### U RTPCR #### [facility] [address] [place] [address] Dr. Dwight SHARMA A micrscopic examina tion will be performed if indicated. Normal [facility] Comment on above: Performed By: #### U RTPCR #### [facility] [address] [place] [address] Dr. Dwight Waters Glucose Ql (U) Negative Normal NEGATIVE [facility] Comment on above: Performed By: #### U RTPCR #### [facility] [address] [place] [address] Dr. Dwight Waters Hemoglobin Ql (U) LARGE Abnormal NEGATIVE [facility] Comment on above: Performed By: #### U RTPCR #### [facility] [address] [place] [address] Dr. Dwight Waters Ketones Ql (U) Negative Normal NEGATIVE [facility] Comment on above: Performed By: #### U RTPCR #### [facility] [address] [place] [address] Dr. Dwight Waters LEUKOCYTES TRACE Abnormal NEGATIVE [facility] Comment on above: Performed By: #### U RTPCR #### [facility] [address] [place] [address] Dr. Dwight Waters Nitrite Ql (U) Negative Normal NEGATIVE [facility] Comment on above: Performed By: #### U RTPCR #### [facility] [address] [place] [address] Dr. Dwight Waters pH (U) 6.0 [pH] Normal 5-9 [facility] Comment on above: Performed By: #### U RTPCR #### [facility] [address] [place] [address] Dr. Dwight Waters Protein (U) [Mass/Vol] 30 mg/dL Abnormal NEGATIVE/ TRACE [facility] Comment on above: Performed By: #### U RTPCR #### [facility] [address] [place] [address] Dr. Dwight Waters SPEC GRAVITY >=1.030 Abnormal 1.005-<=1.02 5 [facility] Comment on above: Performed By: #### U RTPCR #### [facility] [address] [place] [address] Dr. Dwight Waters UR MICRO IND INDICATED Normal [facility] Comment on above: Performed By: #### U RTPCR #### [facility] [address] [place] [address] Dr. Dwight Waters Urobilinogen Qn (U) 0.2 {Alyssa'U}/dL Normal 0.2 - 1. 0 [facility] Comment on above: Performed By: #### U RTPCR #### [facility] [address] [place] [address] Dr. Dwight Waters PROF 14(COMP METB)on 022 Albumin [Mass/Vol] 3.7 g/dL Normal 3.4-5.0 [facility] Comment on above: Performed By: #### C MP #### [facility] [address] [place] [address] Dr. Dwight Waters Albumin/Globulin [Mass ratio] 0.9 {ratio} Normal [facility] Comment on above: Performed By: #### C MP #### [facility] [address] [place] [address] Dr. Dwight Waters ALP [Catalytic activity/Vol] 80 U/L Normal 46-116 [facility] Comment on above: Performed By: #### C MP #### [facility] [address] [place] [address] Dr. Dwight Waters ALT [Catalytic activity/Vol] 24 U/L Normal 16-63 [facility] Comment on above: Performed By: #### C MP #### [facility] [address] [place] [address] Dr. Dwight Waters Anion gap [Moles/Vol] 12.9 mmol/L Normal [facility] Comment on above: Performed By: #### C MP #### [facility] [address] [place] [address] Dr. Dwight Waters AST [Catalytic activity/Vol] 17 U/L Normal 15-37 [facility] Comment on above: Performed By: #### C MP #### [facility] [address] [place] [address] Dr. Dwight Waters Bilirubin [Mass/Vol] 0.8 mg/dL Normal 0.2-1.0 [facility] Comment on above: Performed By: #### C MP #### [facility] [address] [place] [address] Dr. Dwight Waters Calcium [Mass/Vol] 9.4 mg/dL Normal 8.5-10.1 [facility] Comment on above: Performed By: #### C MP #### [facility] [address] [place] [address] Dr. Dwight Waters Chloride [Moles/Vol] 106 mmol/L Normal 98-107 [facility] Comment on above: Performed By: #### C MP #### [facility] [address] [place] [address] Dr. Dwight Waters CO2 [Moles/Vol] 25.3 mmol/L Normal 21.0-32.0 [facility] Comment on above: Performed By: #### C MP #### [facility] [address] [place] [address] Dr. Dwight Waters Creatinine [Mass/Vol] 1.29 mg/dL Normal 0.70-1.30 [facility] Comment on above: Performed By: #### C MP #### [facility] [address] [place] [address] Dr. Dwight Waters EGFR-AF RWANDAN >60 Normal >=60 [facility] Comment on above: Performed By: #### C MP #### [facility] [address] [address] [address] Dwight Waters EGFR-NON AF RWANDAN 59 mL/min/1.73m2 Critically low >=60 [facility] Comment on above: Performed By: #### C MP #### [facility] [address] [address] [address] Dwight Waters Globulin (S) [Mass/Vol] 4.2 g/dL Normal [facility] Comment on above: Performed By: #### C MP #### [facility] [address] [address] [address] Dwight Waters Glucose [Mass/Vol] 106 mg/dL Normal 74-106 [facility] Comment on above: Performed By: #### C MP #### [facility] [address] [address] [address] Dwight Waters Potassium [Moles/Vol] 4.2 mmol/L Normal 3.5-5.1 [facility] Comment on above: Performed By: #### C MP #### [facility] [address] [address] [address] Dwight Waters Protein [Mass/Vol] 7.9 g/dL Normal 6.4-8.2 [facility] Comment on above: Performed By: #### C MP #### [facility] [address] [address] [address] Dwight Waters Sodium [Moles/Vol] 140 mmol/L Normal 136-145 [facility] Comment on above: Performed By: #### C MP #### [facility] [address] [address] [address] Dwight Waters Urea nitrogen [Mass/Vol] 22.0 mg/dL Critically high 7.0-18.0 [facility] Comment on above: Performed By: #### C MP #### [facility] [address] [address] [address] Dwight Waters Urea nitrogen/Creatinine [Mass ratio] 17.1 mg/mg Normal [facility] Comment on above: Performed By: #### C MP #### [facility] [address] [place] [address] Dr. Dwight Waters URINE MICROSCOPIC ONLYon BACTERIA TRACE Abnormal NONE SEEN [facility] Comment on above: Performed By: #### U RTPCR #### [facility] [address] [place] [address] Dr. Dwight Waters Bacteria identified Cx Nom (U) INDICATED Normal [facility] Comment on above: Performed By: #### U RTPCR #### [facility] [address] [place] [address] Dr. Dwight Waters CAST NONE SEEN Normal NONE SEEN [facility] Comment on above: Performed By: #### U RTPCR #### [facility] [address] [place] [address] Dr. Dwight Waters Crystals LM Nom (Urine sed) NONE SEEN Normal NONE SEEN [facility] Comment on above: Performed By: #### U RTPCR #### [facility] [address] [place] [address] Dr. Dwight Waters Epithelial cells LM Ql (Urine sed) NONE SEEN Normal NONE SEEN /RARE [facility] Comment on above: Performed By: #### U RTPCR #### [facility] [address] [place] [address] Dr. Dwight Waters MUCOUS NONE SEEN Normal NONE SEEN [facility] Comment on above: Performed By: #### U RTPCR #### [facility] [address] [place] [address] Dr. Dwight Waters RBC 5-10 Abnormal 0-2 [facility] Comment on above: Performed By: #### U RTPCR #### [facility] [address] [place] [address] Dr. Dwight Waters WBC 10-20 Abnormal NONE SEEN [facility] Comment on above: Performed By: #### U RTPCR #### [facility] [address] [place] [address] Dr. Dwight Waters ALLOSCREEN RECIPIENT (POST T X PRA)on 06-13-2022 AB SPECIFICITY CLASS COMMENT Antibody Specificity testing performed by [facility] [employer]. cPRA calculation based on identification of HLA antibody specificities at MFI >2000 and/or presence of CREG antibodies. [facility] Comment on above: Some of the reagents used for testing in the Clinical Histocompatibility Laboratory have yet to be approved by the FDA. Our certification by CLIA to perform high complexity tests allows us to use these reagents in the context of a stringent QC program, and obviates the need for FDA approval.Testing performed by the [facility] Clinical Histocompatibility Laboratory. [facility] number: [id number]. CLIA number: [id number], Director: Carlito Merchant, PhD, D([facility]). ANTIBODY SPECIFICITY INTERPRETATION Detected [facility] CLASS I SPECIFICITIES Not detected [facility] CLASS II SPECIFICITIES Not detected [facility] HLA Ab (S) 0 % 0 [facility] EXTRA MICROon 06-13-2022 [facility] URINE CULTUREOrdered By: Jah Upton on 06-13-2022 Bacteria identified Cx Nom (Unsp spec) Growth [facility] Bacteria identified Cx Nom (Unsp spec) 10,000-50,000 CFU/mL Mixed skin shimon [facility] Comment on above: Multiple bacterial m orphotypes present. Suggest appropriate recollection if clinically indicated. [facility] CBC,PLATELETSon 06-12-2022 Erythrocyte distribution width (RBC) [Ratio] 13.0 % 10.9 - 14.3 % [facility] Hematocrit (Bld) [Volume fraction] 43.2 % 39.6 - 48.8 % [facility] Hemoglobin (Bld) [Mass/Vol] 13.9 g/dL 13.4 - 16.8 g/dL [facility] Interpretation and review of laboratory results Normal [facility] MCH (RBC) [Entitic mass] 28.7 pg 26.1 - 33.3 pg [facility] MCHC (RBC) [Mass/Vol] 32.2 g/dL 31.9 - 36.5 g/dL [facility] MCV (RBC) [Entitic vol] 89.1 fL 79.0 - 94.5 fL [facility] Platelet mean volume (Bld) [Entitic vol] 10.5 fL 8.7 - 12.3 fL [facility] Platelets (Bld) [#/Vol] 269 10*3/uL 146 - 337 K/uL [facility] RBC (Bld) [#/Vol] 4.85 10*6/uL [facility] WBC (Bld) [#/Vol] 7.68 10*3/uL 3.73 - 10. 10 K/uL [facility] CHEM 7 (LYTES,BUN,CREA,GLUC) on 06-12-2022 Anion gap [Moles/Vol] 14 mmol/L 7 - 17 mmol/L [facility] Chloride [Moles/Vol] 106 mmol/L 98 - 10 8 mmol/L [facility] CO2 [Moles/Vol] 25 mmol/L 21 - 31 mmol/L [facility] Creatinine [Mass/Vol] 1.26 mg/dL 0.70 - 1.30 mg/dL [facility] GFR/1.73 sq M.predicted CKD-EPI (S/P/Bld) [Vol rate/Area] 69 >=60 mL/min/1.73m 2 [facility] Comment on above: Reported eGFR is bas ed on the CKD-EPI 2020 equation using creatinine, age, and sex. Glucose [Mass/Vol] 83 mg/dL 70 - 99 mg/dL [facility] Osmolality Calc [Osmolality] 295 [facility] Potassium [Moles/Vol] 3.8 mmol/L 3.5 - 5.0 mmol/L [facility] Sodium [Moles/Vol] 141 mmol/L 135 - 145 mmol/L [facility] Urea nitrogen [Mass/Vol] 18 mg/dL 7 - 25 mg/dL [facility] Urea nitrogen/Creatinine [Mass ratio] 14 mg/mg [facility] GGTon 06-12-2022 Gamma glutamyl transferase [Catalytic activity/Vol] 20 U/L 8 - 64 U/L [facility] HEMOGLOBIN [id number] By: Link Roche on 06-12-2022 Average glucose Estimated from glycated hemoglobin (Bld) [Mass/Vol] 126 mg/dL [facility] HbA1c (Bld) [Mass fraction] 6.0 % High 4.7 - 5.6 % [facility] Interpretation and review of laboratory results Abnormal [facility] HEPATIC FUNCTION PANELon Albumin [Mass/Vol] 4.3 g/dL 3.5 - 5.0 g/dL [facility] ALP [Catalytic activity/Vol] 78 U/L 32 - 126 U/L [facility] ALT [Catalytic activity/Vol] 12 U/L 10 - 52 U/L [facility] AST [Catalytic activity/Vol] 16 U/L 10 - 39 U/L [facility] Bilirubin [Mass/Vol] 1.0 mg/dL <1.5 [facility] Bilirubin.direct [Mass/Vol] 0.2 mg/dL <0.3 [facility] Protein [Mass/Vol] 7.5 g/dL 6.4 - 8.3 g/dL [facility] No Panel Informationon 06-12 Interpretation and review of laboratory results Normal [facility] PTH INTACTOrdered By: Marli Lizarraga on 06-12-2022 Interpretation and review of laboratory results Abnormal [facility] Parathyrin.intact [Mass/Vol] 79.7 pg/mL High 14.0 - 72.0 pg/mL [facility] URINALYSIS REFLEX TO CULTURE PERFORMABLEon 06-12-2022 Appearance (U) Clear Clear [facility] Bacteria LM Ql (Urine sed) ABSENT ABSENT [facility] Color (U) Yellow Yellow [facility] Epithelial cells.squamous LM Ql (Urine sed) 1/hpf = 1+ 1/hpf = 1+, 2-5/hpf = 2+, 0/hpf = 0+, ABSENT [facility] Glucose Test strip (U) [Mass/Vol] Negative Negative [facility] Interpretation and review of laboratory results Abnormal [facility] Ketones (U) [Mass/Vol] Trace Abnormal Negative [facility] [place] Leukocyte esterase Test strip Ql (U) Small Abnormal Negative [facility] [place] Nitrite Ql (U) Negative Negative [facility] [place] pH (U) 5.5 [pH] 5.0 - 7.0 [facility] [place] Protein (U) [Mass/Vol] 30 mg/dL Abnormal Negative [facility] [place] RBC (U) [#/Vol] Trace Abnormal Negative [facility] RBC LM.HPF (Urine sed) [#/Area] 0-2 0 - 2 /HPF [facility] [place] Specific gravity (U) [Rel density] 1.026 [facility] [place] Urobilinogen (U) [Mass/Vol] 0.2 E.U./dL 0.2 E.U/dL, 1.0 E.U/dL [facility] [place] WBC LM.HPF (Urine sed) [#/Area] 10-20 Abnormal 0 - 5 /HPF [facility] URINE PROTEIN/CREA RATIO, RA NDOMon 06-12-2022 Creatinine (24H U) [Mass/Vol] 231.68 mg/dL [facility] [place] Protein Unsp time (U) [Mass/Vol] 49 mg/dL [facility] [place] Protein/Creatinine (U) [Mass ratio] 0.211 mg/g [facility] FK506 (TACROLIMUS) WHOLE BLO ODon 06-09-2022 Tacrolimus (FK506), Blood 9.8 ng/mL Normal 2.0-20.0 [facility] Comment on above: Result Comment: Trou gh (immediately following transplant) 15.0 . Trough (steady state, 2 weeks or more after transplant): 3.0 - 8.0 . Performed by LC-MS/MS technology. Performed By: #### U RTPCR #### [facility] [address] [place] [address] Dr. Dwight Waters ALBUMINon 06-06-2022 Albumin [Mass/Vol] 3.8 g/dL Normal 3.4-5.0 [facility] Comment on above: Performed By: #### C MP #### [facility] [address] [place] [address] Dr. Dwight Waters ALKALINE PHOSPHAon ALP [Catalytic activity/Vol] 82 U/L Normal 46-116 [facility] Comment on above: Performed By: #### C MP #### [facility] [address] [place] [address] Dr. Dwight Waters BILIRUBIN CONJUGATED (DIRECT )on 06-06-2022 BILI, CONJUGATED 0.2 mg/dL Normal 0.0-0.2 [facility] Comment on above: Performed By: #### C BC #### [facility] [address] [place] [address] Dr. Dwight Waters BILIRUBIN TOTALon 06-06-2022 Bilirubin [Mass/Vol] 1.0 mg/dL Normal 0.2-1.0 [facility] Comment on above: Performed By: #### C BC #### [facility] [address] [place] [address] Dr. Dwight Waters BUNon 06-06-2022 Urea nitrogen [Mass/Vol] 18.0 mg/dL Normal 7.0-18.0 [facility] Comment on above: Performed By: #### C BC #### [facility] [address] [place] [address] Dr. Dwight Waters CALCIUMon 06-06-2022 Calcium [Mass/Vol] 9.4 mg/dL Normal 8.5-10.1 [facility] Comment on above: Performed By: #### C MP #### [facility] [address] [place] [address] Dr. Dwight Waters CBC AUTO DIFFon 06-06-2022 BASO # 0.1 103/ul Normal 0.0-0.1 [facility] Comment on above: Performed By: #### U RTPCR #### [facility] [address] [place] [address] Dr. Dwight Waters Basophils/100 WBC (Bld) 0.8 % Normal 0.2-2.0 [facility] Comment on above: Performed By: #### U RTPCR #### [facility] [address] [place] [address] Dr. Dwight Waters EO # 0.3 103/ul Normal 0.0-0.7 [facility] Comment on above: Performed By: #### U RTPCR #### [facility] [address] [place] [address] Dr. Dwight Waters Eosinophils/100 WBC (Bld) 3.3 % Normal 0.9-7.0 [facility] Comment on above: Performed By: #### U RTPCR #### [facility] [address] [place] [address] Dr. Dwight Waters Erythrocyte distribution width (RBC) [Ratio] 12.4 % Normal 11.0-15.0 [facility] Comment on above: Performed By: #### U RTPCR #### [facility] [address] [place] [address] Dr. Dwight Waters Hematocrit (Bld) [Volume fraction] 45.1 % Normal 42.0-54.0 [facility] Comment on above: Performed By: #### U RTPCR #### [facility] [address] [place] [address] Dr. Dwight Waters Hemoglobin (Bld) [Mass/Vol] 14.4 g/dL Normal 14.0-18.0 [facility] Comment on above: Performed By: #### U RTPCR #### [facility] [address] [place] [address] Dr. Dwight Waters IG # 0.01 10e3/ul Normal 0.00-0.03 [facility] Comment on above: Performed By: #### U RTPCR #### [facility] [address] [place] [address] Dr. Dwight Waters IG % 0.1 % Normal 0.0-0.5 [facility] Comment on above: Performed By: #### U RTPCR #### [facility] [address] [place] [address] Dr. Dwight Waters LYMPH # 2.2 103/ul Normal 1.2-3.8 [facility] Comment on above: Performed By: #### U RTPCR #### [facility] [address] [place] [address] Dr. Dwight Waters Lymphocytes/100 WBC (Bld) 30.0 % Normal 20.5-60.0 [facility] Comment on above: Performed By: #### U RTPCR #### [facility] [address] [place] [address] Dr. Dwight Waters MANUAL DIFF REQ NO Normal [facility] Comment on above: Performed By: #### U RTPCR #### [facility] [address] [place] [address] Dr. Dwight Waters MCH (RBC) [Entitic mass] 28.2 pg Normal 25.9-34.0 [facility] Comment on above: Performed By: #### U RTPCR #### [facility] [address] [place] [address] Dr. Dwight Waters MCHC (RBC) [Mass/Vol] 31.9 g/dL Normal 29.9-35.2 [facility] Comment on above: Performed By: #### U RTPCR #### [facility] [address] [place] [address] Dr. Dwight Waters MCV (RBC) [Entitic vol] 88.3 fL Normal 80.0-94.0 [facility] Comment on above: Performed By: #### U RTPCR #### [facility] [address] [place] [address] Dr. Dwight Waters MONO # 0.6 103/ul Normal 0.3-0.8 [facility] Comment on above: Performed By: #### U RTPCR #### [facility] [address] [place] [address] Dr. Dwight Waters Monocytes/100 WBC (Bld) 8.2 % Normal 1.7-12.0 [facility] Comment on above: Performed By: #### U RTPCR #### [facility] [address] [place] [address] Dr. Dwight Waters NEUT # 4.3 103/ul Normal 1.4-6.5 [facility] Comment on above: Performed By: #### U RTPCR #### [facility] [address] [address] [address] Dwight Waters Neutrophils/100 WBC (Bld) 57.6 % Normal 43.0-75.0 [facility] Comment on above: Performed By: #### U RTPCR #### [facility] [address] [place] [address] Dr. Dwight Waters Platelet mean volume (Bld) [Entitic vol] 9.7 fL Normal 9.5-13.5 [facility] Comment on above: Performed By: #### U RTPCR #### [facility] [address] [place] [address] Dr. Dwight Waters PLT 297 103/ul Normal 150-450 [facility] Comment on above: Performed By: #### U RTPCR #### [facility] [address] [place] [address] Dr. Dwight Waters RBC 5.11 106/ul Normal 4.70-6.10 [facility] Comment on above: Performed By: #### U RTPCR #### [facility] [address] [place] [address] Dr. Dwight Waters WBC 7.5 103/ul Normal 4.0-11.0 [facility] Comment on above: Performed By: #### U RTPCR #### [facility] [address] [place] [address] Dr. Dwight Waters CHLORIDEon 06-06-2022 Chloride [Moles/Vol] 107 mmol/L Normal 98-107 [facility] Comment on above: Performed By: #### C BC #### [facility] [address] [place] [address] Dr. Dwight Waters CO2on 06-06-2022 CO2 [Moles/Vol] 27.4 mmol/L Normal 21.0-32.0 [facility] Comment on above: Performed By: #### C BC #### [facility] [address] [place] [address] Dr. Dwight Waters CREATININEon 06-06-2022 Creatinine [Mass/Vol] 1.20 mg/dL Normal 0.70-1.30 [facility] Comment on above: Performed By: #### C BC #### [facility] [address] [address] [address] Dwight Waters EGFR-AF RWANDAN >60 Normal >=60 [facility] Comment on above: Performed By: #### C BC #### [facility] [address] [address] [address] Dwight Waters EGFR-NON AF RWANDAN >60 Normal >=60 [facility] Comment on above: Performed By: #### C BC #### [facility] [address] [place] [address] Dr. Dwight Waters GGTon 06-06-2022 Gamma glutamyl transferase [Catalytic activity/Vol] 29 U/L Normal 15-85 [facility] Comment on above: Performed By: #### C BC #### [facility] [address] [place] [address] Dr. Dwight Waters GLUCOSE BLOODon 06-06-2022 Glucose [Mass/Vol] 112 mg/dL Critically high 74-106 [facility] Comment on above: Performed By: #### C BC #### [facility] [address] [place] [address] Dr. Dwight Waters MAGNESIUMon 06-06-2022 Magnesium [Mass/Vol] 1.3 mg/dL Critically low 1.8-2.4 [facility] Comment on above: Performed By: #### C MP #### [facility] [address] [place] [address] Dr. Dwight Waters NAon 06-06-2022 Sodium [Moles/Vol] 141 mmol/L Normal 136-145 [facility] Comment on above: Performed By: #### C MP #### [facility] [address] [place] [address] Dr. Dwight Watres PHOSPHORUSon 06-06-2022 Phosphate [Mass/Vol] 3.1 mg/dL Normal 2.6-4.7 [facility] Comment on above: Performed By: #### C MP #### [facility] [address] [place] [address] Dr. Dwight Waters POTASSIUMon 06-06-2022 Potassium [Moles/Vol] 4.3 mmol/L Normal 3.5-5.1 [facility] Comment on above: Performed By: #### C BC #### [facility] [address] [place] [address] Dr. Dwight Araizan 06-06-2022 AST [Catalytic activity/Vol] 16 U/L Normal 15-37 [facility] Comment on above: Performed By: #### C BC #### [facility] [address] [address] [address] Dwight Waters SGPTon 06-06-2022 ALT [Catalytic activity/Vol] 50 U/L Normal 16-63 [facility] Comment on above: Performed By: #### C BC #### [facility] [address] [place] [address] Dr. Dwight Waters Bacteria identified Cx Nom ( Bld)on 05-21-2022 Bacteria identified Cx Nom (Unsp spec) NO GROWTH DAY 5 OF 5 [facility] Results may be compr omised due to volume of BACT\ALERT bottle exceeding 10mLs . The optimal blood volume is 8-10 mls per aerobic/anaerobic blood culture bottle. [facility] CALCIUMon 05-20-2022 Calcium [Mass/Vol] 9.1 mg/dL 8.6 - 10. 5 mg/dL [facility] [place] CBC,PLATELETSon 05-20-2022 Erythrocyte distribution width (RBC) [Ratio] 12.5 % 10.9 - 14.3 % [facility] [place] Hematocrit (Bld) [Volume fraction] 37.1 % Low 39.6 - 48.8 % [facility] [place] Hemoglobin (Bld) [Mass/Vol] 12.3 g/dL Low 13.4 - 16.8 g/dL [facility] [place] Interpretation and review of laboratory results Abnormal [facility] [place] MCH (RBC) [Entitic mass] 28.9 pg 26.1 - 33.3 pg [facility] [place] MCHC (RBC) [Mass/Vol] 33.2 g/dL 31.9 - 36.5 g/dL [facility] [place] MCV (RBC) [Entitic vol] 87.3 fL 79.0 - 94.5 fL [facility] [place] Platelet mean volume (Bld) [Entitic vol] 9.9 fL 8.7 - 12.3 fL [facility] [place] Platelets (Bld) [#/Vol] 234 10*3/uL 146 - 337 K/uL [facility] [place] RBC (Bld) [#/Vol] 4.25 10*6/uL Low [facility] WBC (Bld) [#/Vol] 6.31 10*3/uL 3.73 - 10. 10 K/uL [facility] CHEM 7 (LYTES,BUN,CREA,GLUC) on 05-20-2022 Anion gap [Moles/Vol] 15 mmol/L 7 - 17 mmol/L [facility] [place] Chloride [Moles/Vol] 111 mmol/L High 98 - 10 8 mmol/L [facility] [place] CO2 [Moles/Vol] 22 mmol/L 21 - 31 mmol/L [facility] [place] Creatinine [Mass/Vol] 1.10 mg/dL 0.70 - 1.30 mg/dL [facility] [place] GFR/1.73 sq M.predicted CKD-EPI (S/P/Bld) [Vol rate/Area] 81 >=60 mL/min/1.73m 2 [facility] [place] Comment on above: Reported eGFR is bas ed on the CKD-EPI 2020 equation using creatinine, age, and sex. Glucose [Mass/Vol] 92 mg/dL 70 - 99 mg/dL [facility] [place] Interpretation and review of laboratory results Abnormal [facility] [place] Osmolality Calc [Osmolality] 302 [facility] [place] Potassium [Moles/Vol] 4.4 mmol/L 3.5 - 5.0 mmol/L [facility] [place] Sodium [Moles/Vol] 144 mmol/L 135 - 145 mmol/L [facility] [place] Urea nitrogen [Mass/Vol] 18 mg/dL 7 - 25 mg/dL [facility] [place] Urea nitrogen/Creatinine [Mass ratio] 16 mg/mg [facility] MAGNESIUMon 06-21-2022 Interpretation and review of laboratory results [facility] Magnesium [Mass/Vol] 1.5 mg/dL Low 1.6 - 2 .6 mg/dL [facility] [place] No Panel Informationon 05-20 Interpretation and review of laboratory results [facility]OSPH[facility], INORGANICon 05-20 Phosphate [Mass/Vol] 3.3 mg/dL 2.2 - 4 .6 mg/dL [facility] RF Unspecified body region V iews [...] projections of kidneys, ureters, and bladder. FINDINGS: Cut Off Man images: Cut Off Man radiographs of the abdomen reveal a nonobstructive [...] Contrast refluxes up the ureter to the [place] right kidney that is grossly normal appearing. [...] projections of kidneys, ureters, and bladder. FINDINGS: Cut Off Man images: Cut Off Man radiographs of the abdomen reveal a nonobstructive [...] Contrast refluxes up the ureter to the [place] right kidney that is grossly normal appearing. [...] have reviewed and approved this report. [facility] Radiology Study observation (narrative) [facility] RF Unspecified body region V iews during surgeryOrdered By: Lizz Campos on 05-20-2022 [facility] [place] Work Phone: CALCIUMon 05-19-2022 Calcium [Mass/Vol] 9.2 mg/dL 8.6 - 10. 5 mg/dL [facility] [place] Calcium [Mass/Vol] 8.6 mg/dL 8.6 - 10. 5 mg/dL [facility] [place] CBC,PLATELETSon 05-19-2022 Erythrocyte distribution width (RBC) [Ratio] 12.4 % 10.9 - 14.3 % [facility] [place] Hematocrit (Bld) [Volume fraction] 38.0 % Low 39.6 - 48.8 % [facility] [place] Hemoglobin (Bld) [Mass/Vol] 12.0 g/dL Low 13.4 - 16.8 g/dL [facility] [place] Interpretation and review of laboratory results Abnormal [facility] [place] MCH (RBC) [Entitic mass] 28.6 pg 26.1 - 33.3 pg [facility] [place] MCHC (RBC) [Mass/Vol] 31.6 g/dL Low 31.9 - 36.5 g/dL [facility] [place] MCV (RBC) [Entitic vol] 90.5 fL 79.0 - 94.5 fL [facility] [place] Platelet mean volume (Bld) [Entitic vol] 9.7 fL 8.7 - 12.3 fL [facility] [place] Platelets (Bld) [#/Vol] 199 10*3/uL 146 - 337 K/uL [facility] [place] RBC (Bld) [#/Vol] 4.20 10*6/uL Low [facility] WBC (Bld) [#/Vol] 6.81 10*3/uL 3.73 - 10. 10 K/uL [facility] CHEM 7 (LYTES,BUN,CREA,GLUC) on 05-19-2022 Anion gap [Moles/Vol] 13 mmol/L 7 - 17 mmol/L [facility] [place] Chloride [Moles/Vol] 105 mmol/L 98 - 10 8 mmol/L [facility] [place] CO2 [Moles/Vol] 30 mmol/L 21 - 31 mmol/L [facility] [place] Creatinine [Mass/Vol] 1.39 mg/dL High 0.70 - 1.30 mg/dL [facility] [place] GFR/1.73 sq M.predicted CKD-EPI (S/P/Bld) [Vol rate/Area] 61 >=60 mL/min/1.73m 2 [facility] [place] Comment on above: Reported eGFR is bas ed on the CKD-EPI 2021 equation using creatinine, age, and sex. Glucose [Mass/Vol] 121 mg/dL High 70 - 99 mg/dL [facility] [place] Interpretation and review of laboratory results Abnormal [facility] [place] Osmolality Calc [Osmolality] 303 [facility] [place] Potassium [Moles/Vol] 3.8 mmol/L 3.5 - 5.0 mmol/L [facility] [place] Sodium [Moles/Vol] 144 mmol/L 135 - 145 mmol/L [facility] [place] Urea nitrogen [Mass/Vol] 18 mg/dL 7 - 25 mg/dL [facility] [place] Urea nitrogen/Creatinine [Mass ratio] 13 mg/mg [facility] [place] Anion gap [Moles/Vol] 15 mmol/L 7 - 17 mmol/L [facility] [place] Chloride [Moles/Vol] 106 mmol/L 98 - 10 8 mmol/L [facility] [place] CO2 [Moles/Vol] 24 mmol/L 21 - 31 mmol/L [facility] [place] Creatinine [Mass/Vol] 1.46 mg/dL High 0.70 - 1.30 mg/dL [facility] [place] GFR/1.73 sq M.predicted CKD-EPI (S/P/Bld) [Vol rate/Area] 58 Low >=60 mL/min/1.73m 2 [facility] [place] Comment on above: Reported eGFR is bas ed on the CKD-EPI 2021 equation using creatinine, age, and sex. Glucose [Mass/Vol] 103 mg/dL High 70 - 99 mg/dL [facility] [place] Interpretation and review of laboratory results Abnormal [facility] [place] Osmolality Calc [Osmolality] 298 [facility] Potassium [Moles/Vol] 3.9 mmol/L 3.5 - 5.0 mmol/L [facility] [place] Sodium [Moles/Vol] 141 mmol/L 135 - 145 mmol/L [facility] [place] Urea nitrogen [Mass/Vol] 21 mg/dL 7 - 25 mg/dL [facility] [place] Urea nitrogen/Creatinine [Mass ratio] 14 mg/mg [facility] [place] MAGNESIUMon 05-19-2022 Magnesium [Mass/Vol] 2.0 mg/dL 1.6 - 2 .6 mg/dL [facility] [place] Magnesium [Mass/Vol] 1.7 mg/dL 1.6 - 2 .6 mg/dL [facility] [place] No Panel Informationon 05-19 Interpretation and review of laboratory results Normal [facility] Interpretation and review of laboratory results Normal [facility] PHOSPHATE, INORGANICon 05-19 Phosphate [Mass/Vol] 3.0 mg/dL 2.2 - 4 .6 mg/dL [facility] [place] Phosphate [Mass/Vol] 2.7 mg/dL 2.2 - 4 .6 mg/dL [facility] [place] CALCIUMon 05-18-2022 Calcium [Mass/Vol] 9.1 mg/dL 8.6 - 10. 5 mg/dL [facility] [place] CBC,PLATELETSon 05-18-2022 Erythrocyte distribution width (RBC) [Ratio] 12.5 % 10.9 - 14.3 % [facility] [place] Hematocrit (Bld) [Volume fraction] 37.3 % Low 39.6 - 48.8 % [facility] [place] Hemoglobin (Bld) [Mass/Vol] 11.9 g/dL Low 13.4 - 16.8 g/dL [facility] [place] Interpretation and review of laboratory results Abnormal [facility] [place] MCH (RBC) [Entitic mass] 28.9 pg 26.1 - 33.3 pg [facility] [place] MCHC (RBC) [Mass/Vol] 31.9 g/dL 31.9 - 36.5 g/dL [facility] [place] MCV (RBC) [Entitic vol] 90.5 fL 79.0 - 94.5 fL [facility] [place] Platelet mean volume (Bld) [Entitic vol] 10.1 fL 8.7 - 12.3 fL [facility] [place] Platelets (Bld) [#/Vol] 189 10*3/uL 146 - 337 K/uL [facility] [place] RBC (Bld) [#/Vol] 4.12 10*6/uL Low [facility] WBC (Bld) [#/Vol] 10.19 10*3/uL High 3.73 - 10 .10 K/uL [facility] CHEM 7 (LYTES,BUN,CREA,GLUC) on 05-18-2022 Anion gap [Moles/Vol] 13 mmol/L 7 - 17 mmol/L [facility] [place] Chloride [Moles/Vol] 102 mmol/L 98 - 10 8 mmol/L [facility] [place] CO2 [Moles/Vol] 26 mmol/L 21 - 31 mmol/L [facility] [place] Creatinine [Mass/Vol] 1.91 mg/dL High 0.70 - 1.30 mg/dL [facility] [place] GFR/1.73 sq M.predicted CKD-EPI (S/P/Bld) [Vol rate/Area] 42 Low >=60 mL/min/1.73m 2 [facility] [place] Comment on above: Reported eGFR is bas ed on the CKD-EPI 2020 equation using creatinine, age, and sex. Glucose [Mass/Vol] 158 mg/dL High 70 - 99 mg/dL [facility] [place] Osmolality Calc [Osmolality] 297 [facility] [place] Potassium [Moles/Vol] 4.0 mmol/L 3.5 - 5.0 mmol/L [facility] [place] Sodium [Moles/Vol] 137 mmol/L 135 - 145 mmol/L [facility] [place] Urea nitrogen [Mass/Vol] 30 mg/dL High 7 - 25 mg/dL [facility] [place] Urea nitrogen/Creatinine [Mass ratio] 16 mg/mg [facility] [place] CHEM 7 (LYTES,BUN,CREA,GLUC) Ordered By: Tamiko Thapa on 05-18-2022 Anion gap [Moles/Vol] 13 mmol/L 7 - 17 mmol/L [facility] [place] Chloride [Moles/Vol] 104 mmol/L 98 - 10 8 mmol/L [facility] [place] CO2 [Moles/Vol] 26 mmol/L 21 - 31 mmol/L [facility] [place] Creatinine [Mass/Vol] 2.96 mg/dL High 0.70 - 1.30 mg/dL [facility] [place] GFR/1.73 sq M.predicted CKD-EPI (S/P/Bld) [Vol rate/Area] 25 Low >=60 mL/min/1.73m 2 [facility] [place] Comment on above: Reported eGFR is bas ed on the CKD-EPI 2020 equation using creatinine, age, and sex. Glucose [Mass/Vol] 136 mg/dL High 70 - 99 mg/dL [facility] [place] Interpretation and review of laboratory results Abnormal [facility] [place] Osmolality Calc [Osmolality] 304 [facility] [place] Potassium [Moles/Vol] 4.2 mmol/L 3.5 - 5.0 mmol/L [facility] [place] Sodium [Moles/Vol] 139 mmol/L 135 - 145 mmol/L [facility] [place] Urea nitrogen [Mass/Vol] 41 mg/dL High 7 - 25 mg/dL [facility] [place] Urea nitrogen/Creatinine [Mass ratio] 14 mg/mg [facility] [place] MAGNESIUMon 05-18-2022 Magnesium [Mass/Vol] 2.2 mg/dL 1.6 - 2 .6 mg/dL [facility] [place] Interpretation and review of laboratory results Normal [facility] [place] Magnesium [Mass/Vol] 1.7 mg/dL 1.6 - 2 .6 mg/dL [facility] No Panel Informationon 05-18 Interpretation and review of laboratory results Abnormal [facility] [place] Interpretation and review of laboratory results Normal [facility] PHOSPHATE, INORGANICon 05-18 Phosphate [Mass/Vol] 2.0 mg/dL Low 2.2 - 4 .6 mg/dL [facility] Interpretation and review of laboratory results Normal [facility] Phosphate [Mass/Vol] 2.8 mg/dL 2.2 - 4 .6 mg/dL [facility] PT,INR,PTTon 05-18-2022 aPTT Coag (PPP) [Time] 31.0 s [facility] INR Coag (Bld) [Relative time] 1.1 {INR} [facility] Interpretation and review of laboratory results Abnormal [facility] PT Coag (PPP) [Time] 14.4 s High [facility] URINE CULTUREOrdered By: Sylvia Campos on 05-18-2022 Bacteria identified Cx Nom (Unsp spec) No Growth [facility] CBC,PLATELETSon 05-17-2022 Erythrocyte distribution width (RBC) [Ratio] 12.8 % 10.9 - 14.3 % [facility] Hematocrit (Bld) [Volume fraction] 42.8 % 39.6 - 48.8 % [facility] Hemoglobin (Bld) [Mass/Vol] 13.3 g/dL Low 13.4 - 16.8 g/dL [facility] Interpretation and review of laboratory results Abnormal [facility] MCH (RBC) [Entitic mass] 28.9 pg 26.1 - 33.3 pg [facility] MCHC (RBC) [Mass/Vol] 31.1 g/dL Low 31.9 - 36.5 g/dL [facility] MCV (RBC) [Entitic vol] 92.8 fL 79.0 - 94.5 fL [facility] Platelet mean volume (Bld) [Entitic vol] 10.3 fL 8.7 - 12.3 fL [facility] Platelets (Bld) [#/Vol] 188 10*3/uL 146 - 337 K/uL [facility] RBC (Bld) [#/Vol] 4.61 10*6/uL [facility] WBC (Bld) [#/Vol] 16.61 10*3/uL High 3.73 - 10 .10 K[facility]L [facility] CHEM 7 (LYTES,BUN,CREA,GLUC) Ordered By: Kaylah Mc on 05-17-2022 Anion gap [Moles/Vol] 15 mmol/L 7 - 17 mmol/L [facility] Chloride [Moles/Vol] 103 mmol/L 98 - 10 8 mmol/L [facility] CO2 [Moles/Vol] 23 mmol/L 21 - 31 mmol/L [facility] Creatinine [Mass/Vol] 5.95 mg/dL High 0.70 - 1.30 mg/dL [facility] GFR/1.73 sq M.predicted CKD-EPI (S/P/Bld) [Vol rate/Area] 11 Low >=60 mL/min/1.73m 2 [facility] Comment on above: Reported eGFR is bas ed on the CKD-EPI 2020 equation using creatinine, age, and sex. Glucose [Mass/Vol] 165 mg/dL High 70 - 99 mg/dL [facility] Interpretation and review of laboratory results Abnormal [facility] Osmolality Calc [Osmolality] 305 [facility] Potassium [Moles/Vol] 4.6 mmol/L 3.5 - 5.0 mmol/L [facility] Sodium [Moles/Vol] 136 mmol/L 135 - 145 mmol/L [facility] Urea nitrogen [Mass/Vol] 52 mg/dL High 7 - 25 mg/dL [facility] Urea nitrogen/Creatinine [Mass ratio] 9 mg/mg [facility] CHEM 7 (LYTES,BUN,CREA,GLUC) Ordered By: Kehinde Gutierrez on 05-17-2022 Anion gap [Moles/Vol] 24 mmol/L High 7 - 17 mmol/L [facility] Chloride [Moles/Vol] 100 mmol/L 98 - 10 8 mmol/L [facility] CO2 [Moles/Vol] 16 mmol/L Low 21 - 31 mmol/L [facility] Creatinine [Mass/Vol] 8.08 mg/dL High 0.70 - 1.30 mg/dL [facility] GFR/1.73 sq M.predicted CKD-EPI (S/P/Bld) [Vol rate/Area] 7 Low >=60 mL/min/1.73m 2 [facility] Comment on above: Reported eGFR is bas ed on the CKD-EPI 2020 equation using creatinine, age, and sex. Glucose [Mass/Vol] 164 mg/dL High 70 - 99 mg/dL [facility] Interpretation and review of laboratory results Abnormal [facility] Osmolality Calc [Osmolality] 305 [facility] Potassium [Moles/Vol] 5.0 mmol/L 3.5 - 5.0 mmol/L [facility] Sodium [Moles/Vol] 135 mmol/L 135 - 145 mmol/L [facility] Urea nitrogen [Mass/Vol] 56 mg/dL High 7 - 25 mg/dL [facility] Urea nitrogen/Creatinine [Mass ratio] 7 mg/mg [facility] LAVENDER TOP TUBEon 05-17-20 [facility] MAGNESIUMon 05-17-2022 Interpretation and review of laboratory results Normal [facility] Magnesium [Mass/Vol] 1.8 mg/dL 1.6 - 2 .6 mg/dL [facility] Interpretation and review of laboratory results Normal [facility] Magnesium [Mass/Vol] 1.6 mg/dL 1.6 - 2 .6 mg/dL [facility] No Panel Informationon 05-17 [facility] PHOSPHATE, INORGANICon 05-17 Interpretation and review of laboratory results Abnormal [facility] Phosphate [Mass/Vol] 4.9 mg/dL High 2.2 - 4 .6 mg/dL [facility] PT,INR,PTTon 05-17-2022 aPTT Coag (PPP) [Time] 33.0 s [facility] INR Coag (Bld) [Relative time] 1.3 {INR} High [facility] Interpretation and review of laboratory results Abnormal [facility] PT Coag (PPP) [Time] 15.7 s High [facility] Portable XR Chest Viewson IMPRESSION: No acute [...] IMPRESSION IMPRESSION: No acute findings. [facility] Radiology Study observation (narrative) [facility] Portable XR Chest ViewsOrder ed By: David Sanz on 05-17-2022 [facility] Work Phone: URINALYSISOrdered By: Michael patel Ma on 05-17-2022 Appearance (U) Cloudy Abnormal Clear [facility] Comment on above: Results may be inacc urate due to color interference. Clinical correlation recommended. Bacteria LM Ql (Urine sed) ABSENT ABSENT [facility] Color (U) Red Abnormal Yellow [facility] Comment on above: Results may be inacc urate due to color interference. Clinical correlation recommended. Epithelial cells.squamous LM Ql (Urine sed) ABSENT 1/hpf = 1+, 2-5/hpf = 2+, 0/hpf = 0+, ABSENT [facility] Glucose Test strip (U) [Mass/Vol] Negative Negative [facility] Comment on above: Results may be inacc urate due to color interference. Clinical correlation recommended. Interpretation and review of laboratory results Abnormal [facility] Ketones (U) [Mass/Vol] Trace Abnormal Negative [facility] Comment on above: Results may be inacc urate due to color interference. Clinical correlation recommended. Leukocyte esterase Test strip Ql (U) Large Abnormal Negative [facility] Comment on above: Results may be inacc urate due to color interference. Clinical correlation recommended. Nitrite Ql (U) Negative Negative [facility] Comment on above: Results may be inacc urate due to color interference. Clinical correlation recommended. pH (U) 5.0 [pH] 5.0 - 7.0 [facility] Comment on above: Results may be inacc urate due to color interference. Clinical correlation recommended. Protein (U) [Mass/Vol] mg/dL Abnormal Negative [facility] Comment on above: Results may be inacc urate due to color interference. Clinical correlation recommended. RBC (U) [#/Vol] Large Abnormal Negative [facility] Comment on above: Results may be inacc urate due to color interference. Clinical correlation recommended. RBC LM.HPF (Urine sed) [#/Area] /[HPF] Abnormal 0 - 2 /HPF [facility] Specific gravity (U) [Rel density] 1.016 [facility] Comment on above: Results may be inacc urate due to color interference. Clinical correlation recommended. Urobilinogen (U) [Mass/Vol] 0.2 E.U./dL 0.2 E.U/dL, 1.0 E.U/dL [facility] Comment on above: Results may be inacc urate due to color interference. Clinical correlation recommended. WBC LM.HPF (Urine sed) [#/Area] /[HPF] Abnormal 0 - 5 /HPF [facility] URINE CULTUREOrdered By: Tyler Tiwari on 05-17-2022 Bacteria identified Cx Nom (Unsp spec) No Growth [facility] CBC,PLATELETSon 05-16-2022 Erythrocyte distribution width (RBC) [Ratio] 12.9 % 10.9 - 14.3 % [facility] Hematocrit (Bld) [Volume fraction] 46.5 % 39.6 - 48.8 % [facility] Hemoglobin (Bld) [Mass/Vol] 14.7 g/dL 13.4 - 16.8 g/dL [facility] Interpretation and review of laboratory results Abnormal [facility] MCH (RBC) [Entitic mass] 28.3 pg 26.1 - 33.3 pg [facility] MCHC (RBC) [Mass/Vol] 31.6 g/dL Low 31.9 - 36.5 g/dL [facility] MCV (RBC) [Entitic vol] 89.6 fL 79.0 - 94.5 fL [facility] Platelet mean volume (Bld) [Entitic vol] 10.3 fL 8.7 - 12.3 fL [facility] Platelets (Bld) [#/Vol] 188 10*3/uL 146 - 337 K/uL [facility] RBC (Bld) [#/Vol] 5.19 10*6/uL [facility] WBC (Bld) [#/Vol] 12.55 10*3/uL High 3.73 - 10 .10 K/uL [facility] CHEM 7 (LYTES,BUN,CREA,GLUC) Ordered By: Alma Pena on 05-16-2022 Anion gap [Moles/Vol] 14 mmol/L 7 - 17 mmol/L [facility] Chloride [Moles/Vol] 103 mmol/L 98 - 10 8 mmol/L [facility] CO2 [Moles/Vol] 22 mmol/L 21 - 31 mmol/L [facility] Creatinine [Mass/Vol] 6.09 mg/dL High 0.70 - 1.30 mg/dL [facility] GFR/1.73 sq M.predicted CKD-EPI (S/P/Bld) [Vol rate/Area] 10 Low >=60 mL/min/1.73m 2 [facility] Comment on above: Reported eGFR is bas ed on the CKD-EPI 2020 equation using creatinine, age, and sex. Glucose [Mass/Vol] 134 mg/dL High 70 - 99 mg/dL [facility] Interpretation and review of laboratory results Abnormal [facility] Osmolality Calc [Osmolality] 298 [facility] Potassium [Moles/Vol] 4.9 mmol/L 3.5 - 5.0 mmol/L [facility] Sodium [Moles/Vol] 134 mmol/L Low 135 - 145 mmol/L [facility] Comment on above: Results inconsistent with previous results Urea nitrogen [Mass/Vol] 49 mg/dL High 7 - 25 mg/dL [facility] Urea nitrogen/Creatinine [Mass ratio] 8 mg/mg [facility] CHEM 7 (LYTES,BUN,CREA,GLUC) on 05-16-2022 Anion gap [Moles/Vol] 17 mmol/L 7 - 17 mmol/L [facility] Chloride [Moles/Vol] 106 mmol/L 98 - 10 8 mmol/L [facility] CO2 [Moles/Vol] 22 mmol/L 21 - 31 mmol/L [facility] Creatinine [Mass/Vol] 5.23 mg/dL High 0.70 - 1.30 mg/dL [facility] GFR/1.73 sq M.predicted CKD-EPI (S/P/Bld) [Vol rate/Area] 13 Low >=60 mL/min/1.73m 2 [facility] Comment on above: Reported eGFR is bas ed on the CKD-EPI 2020 equation using creatinine, age, and sex. Glucose [Mass/Vol] 116 mg/dL High 70 - 99 mg/dL [facility] Interpretation and review of laboratory results Abnormal [facility] Osmolality Calc [Osmolality] 305 [facility] Potassium [Moles/Vol] 4.6 mmol/L 3.5 - 5.0 mmol/L [facility] Sodium [Moles/Vol] 140 mmol/L 135 - 145 mmol/L [facility] Urea nitrogen [Mass/Vol] 42 mg/dL High 7 - 25 mg/dL [facility] Urea nitrogen/Creatinine [Mass ratio] 8 mg/mg [facility] EXTRA MICROon 05-16-2022 [facility] LT BLUE TOP TUBEon [facility] LYTES (NA, K, CL) - URINE - RANDOMon 05-16-2022 Chloride (24H U) [Moles/Vol] 68 mmol/L [facility] Potassium (24H U) [Moles/Vol] 36.7 mmol/L [facility] Sodium (24H U) [Moles/Vol] 55 mmol/L [facility] The reference range has not been established for random urine specimens. The test result should be integrated into the clinical context for interpretation. [facility] MAGNESIUMon 05-16-2022 Interpretation and review of laboratory results Normal [facility] Magnesium [Mass/Vol] 1.7 mg/dL 1.6 - 2 .6 mg/dL [facility] NOVEL CORONAVIRUS PCROrdered By: Edson Candelario on 05-16-2022 SARS-CoV-2 (COVID-19) RNA ESTELITA+probe Ql (Unsp spec) Not detected NOT DETECTED [facility] Comment on above: [facility] Negative results do [...] for use by authorized laboratories. [facility] No Panel Informationon 05-16 [facility] OSMOLALITY, URINEon 05-16-20 Interpretation and review of laboratory results Normal [facility] Osmolality (U) [Osmolality] 320 mosm/kg [facility] The reference range has not been established for random urine specimens. The test result should be integrated into the clinical context for interpretation. [facility] PROCALCITONINon 05-16-2022 Interpretation and review of laboratory results Normal [facility] Procalcitonin [Mass/Vol] 0.18 ng/mL <0.50 [facility] Comment on above: Procalcitonin is an FDA-approved assay to help manage antibiotic treatment in patients with sepsis/septic shock and lower respiratory tract infections. Specifically, trending procalcitonin in these situations can be used to reduce the duration of antibiotics. Please refer to the Procalcitonin Guide on the [employer] Webpage for more guidance on how to use and trend procalcitonin in various clinical settings. [email or web address]&[email or web address] Two common cutoffs associated with bacterial infections are as follows. Respiratory tract infections: >0.25 ng/mL Sepsis/septic shock: >0.5 ng/mL Procalcitonin should not be used alone as a diagnostic tool, however. All procalcitonin results should be interpreted in association with the patients clinical condition and all laboratory findings. [facility] PT,INR,PTTon 05-16-2022 aPTT Coag (PPP) [Time] 30.3 s [facility] INR Coag (Bld) [Relative time] 1.1 {INR} [facility] Interpretation and review of laboratory results Normal [facility] PT Coag (PPP) [Time] 14.1 s [facility] SARS-CoV-2 (COVID-19) RNA NA A+probe Ql (Unsp spec)Ordered By: Edson Candelario on 05-16-2022 Interpretation and review of laboratory results [facility] TACROLIMUS LEVEL, TROUGH (NC E DRUG LEVEL)Ordered By: Mariama Nick on 05-16-2022 Interpretation and review of laboratory results Normal [facility] Tacrolimus (Bld) [Mass/Vol] 4.1 ng/mL Bone Marrow Transplant: 4.0-12.0, Therapeutic: 5.0-15.0 [facility] Method performed is a chemiluminescent microparticle immunoasssay on the [employer] i2000. The range is based on experience at [facility] and users should be aware that target concentrations vary widely depending on concomitant therapy, time post-transplant, and desired degree of immunosuppression. [facility] URINE PROTEIN/CREA RATIO, RA Baljit 05-16-2022 Creatinine (24H U) [Mass/Vol] 59.82 mg/dL [facility] Protein Unsp time (U) [Mass/Vol] 111 mg/dL [facility] Protein/Creatinine (U) [Mass ratio] 1.856 mg/g [facility] US for transplanted kidney l sanjivon 05-16-2022 IMPRESSION: 1. Pelvocaliectasis/mild hydronephrosis in the [...] No ascites in the visualized images. RADIOLOGY Rosedno Matute MD - 05/16/2022 EXAM: US RENAL [...] flow in the transplant kidney. [facility] Radiology Study observation (narrative) [facility] US for transplanted kidney l imitedOrdered By: Rosendo Matute on 05-16-2022 [facility] Work Phone: CBC AND ELECTRONIC DIFFon Basophils (Bld) [#/Vol] 10*3/uL 0.00 - 0.09 K/uL [facility] Basophils/100 WBC (Bld) 0.2 % [facility] Differential cell count method Nom (Bld) Electronic Differential [facility] Eosinophils (Bld) [#/Vol] 10*3/uL 0.00 - 0.48 K/uL [facility] Eosinophils/100 WBC (Bld) 0.0 % [facility] Erythrocyte distribution width (RBC) [Ratio] 12.8 % 10.9 - 14.3 % [facility] Hematocrit (Bld) [Volume fraction] 46.0 % 39.6 - 48.8 % [facility] Hemoglobin (Bld) [Mass/Vol] 14.6 g/dL 13.4 - 16.8 g/dL [facility] Immature granulocytes (Bld) [#/Vol] 0.07 10*3/uL <=0.08 [facility] Immature granulocytes/100 WBC (Bld) 0.4 % [facility] Interpretation and review of laboratory results Abnormal [facility] Lymphocytes (Bld) [#/Vol] 1.49 10*3/uL 0.83 - 3.57 K/uL [facility] Lymphocytes/100 WBC (Bld) 9.4 % [facility] MCH (RBC) [Entitic mass] 28.2 pg 26.1 - 33.3 pg [facility] MCHC (RBC) [Mass/Vol] 31.7 g/dL Low 31.9 - 36.5 g/dL [facility] MCV (RBC) [Entitic vol] 89.0 fL 79.0 - 94.5 fL [facility] Monocytes (Bld) [#/Vol] 1.45 10*3/uL High 0.24 - 0.93 K/uL [facility] Monocytes/100 WBC (Bld) 9.2 % [facility] Neutrophils (Bld) [#/Vol] 12.77 10*3/uL High 1.57 - 6.19 K/uL [facility] Nucleated RBC/100 WBC (Bld) [Ratio] 0.0 % <=0.2 /100 WBC [facility] Platelet mean volume (Bld) [Entitic vol] 9.9 fL 8.7 - 12.3 fL [facility] Platelets (Bld) [#/Vol] 250 10*3/uL 146 - 337 K/uL [facility] RBC (Bld) [#/Vol] 5.17 10*6/uL [facility] Segmented neutrophils/100 WBC (Bld) 80.8 % [facility] WBC (Bld) [#/Vol] 15.81 10*3/uL High 3.73 - 10 .10 K/uL [facility] CBC AUTO DIFFon 05-15-2022 BASO # 0.0 103/ul Normal 0.0-0.1 [facility] Comment on above: Performed By: #### C BC #### [facility] [address] [address] [address] Dwight Waters Basophils/100 WBC (Bld) 0.3 % Normal 0.2-2.0 [facility] Comment on above: Performed By: #### C BC #### [facility] [address] [place] [address] Dr. Dwight Waters EO # 0.1 103/ul Normal 0.0-0.7 [facility] Comment on above: Performed By: #### C BC #### [facility] [address] [place] [address] Dr. Dwight Waters Eosinophils/100 WBC (Bld) 0.8 % Critically low 0.9-7.0 [facility] Comment on above: Performed By: #### C BC #### [facility] [address] [place] [address] Dr. Dwight Waters Erythrocyte distribution width (RBC) [Ratio] 12.7 % Normal 11.0-15.0 [facility] Comment on above: Performed By: #### C BC #### [facility] [address] [place] [address] Dr. Dwight Waters Hematocrit (Bld) [Volume fraction] 43.5 % Normal 42.0-54.0 [facility] Comment on above: Performed By: #### C BC #### [facility] [address] [place] [address] Dr. Dwight Waters Hemoglobin (Bld) [Mass/Vol] 14.4 g/dL Normal 14.0-18.0 [facility] Comment on above: Performed By: #### C BC #### [facility] [address] [place] [address] Dr. Dwight Waters IG # 0.02 10e3/ul Normal 0.00-0.03 [facility] Comment on above: Performed By: #### C BC #### [facility] [address] [place] [address] Dr. Dwight Waters IG % 0.2 % Normal 0.0-0.5 [facility] Comment on above: Performed By: #### C BC #### [facility] [address] [place] [address] Dr. Dwight Waters LYMPH # 1.5 103/ul Normal 1.2-3.8 [facility] Comment on above: Performed By: #### C BC #### [facility] [address] [place] [address] Dr. Dwight Waters Lymphocytes/100 WBC (Bld) 12.5 % Critically low 20.5-60.0 [facility] Comment on above: Performed By: #### C BC #### [facility] [address] [place] [address] Dr. Dwight Waters MANUAL DIFF REQ NO Normal [facility] Comment on above: Performed By: #### C BC #### [facility] [address] [place] [address] Dr. Dwight Waters MCH (RBC) [Entitic mass] 28.6 pg Normal 25.9-34.0 [facility] Comment on above: Performed By: #### C BC #### [facility] [address] [place] [address] Dr. Dwight Waters MCHC (RBC) [Mass/Vol] 33.1 g/dL Normal 29.9-35.2 [facility] Comment on above: Performed By: #### C BC #### [facility] [address] [place] [address] Dr. Dwight Waters MCV (RBC) [Entitic vol] 86.3 fL Normal 80.0-94.0 [facility] Comment on above: Performed By: #### C BC #### [facility] [address] [place] [address] Dr. Dwight Waters MONO # 1.0 103/ul Critically high 0.3-0.8 [facility] Comment on above: Performed By: #### C BC #### [facility] [address] [place] [address] Dr. Dwight Waters Monocytes/100 WBC (Bld) 8.2 % Normal 1.7-12.0 [facility] Comment on above: Performed By: #### C BC #### [facility] [address] [place] [address] Dr. Dwight Waters NEUT # 9.1 103/ul Critically high 1.4-6.5 [facility] [facility] Comment on above: Performed By: #### C BC #### [facility] [address] [address] [address] Dwight Waters Neutrophils/100 WBC (Bld) 78.0 % Critically high 43.0-75.0 [facility] Comment on above: Performed By: #### C BC #### [facility] [address] [address] [address] Dwight Waters Platelet mean volume (Bld) [Entitic vol] 9.8 fL Normal 9.5-13.5 [facility] Comment on above: Performed By: #### C BC #### [facility] [address] [address] [address] Dwight Waters PLT 251 103/ul Normal 150-450 [facility] Comment on above: Performed By: #### C BC #### [facility] [address] [address] [address] Dwight Waters RBC 5.04 106/ul Normal 4.70-6.10 [facility] Comment on above: Performed By: #### C BC #### [facility] [address] [address] [address] Dwight Waters WBC 11.6 103/ul Critically high 4.0-11.0 [facility] Comment on above: Performed By: #### C BC #### [facility] [address] [address] [address] Dwight Waters CHEM 6 (LYTES, BUN CREA)on 0 05-15-2022 Anion gap [Moles/Vol] 12 mmol/L 7 - 17 mmol/L [facility] Chloride [Moles/Vol] 105 mmol/L 98 - 10 8 mmol/L [facility] CO2 [Moles/Vol] 26 mmol/L 21 - 31 mmol/L [facility] Creatinine [Mass/Vol] 2.85 mg/dL High 0.70 - 1.30 mg/dL [facility] GFR/1.73 sq M.predicted CKD-EPI (S/P/Bld) [Vol rate/Area] 26 Low >=60 mL/min/1.73m 2 [facility] Comment on above: Reported eGFR is bas ed on the CKD-EPI 2020 equation using creatinine, age, and sex. Potassium [Moles/Vol] 4.6 mmol/L 3.5 - 5.0 mmol/L [facility] Sodium [Moles/Vol] 138 mmol/L 135 - 145 mmol/L [facility] Urea nitrogen [Mass/Vol] 32 mg/dL High 7 - 25 mg/dL [facility] Urea nitrogen/Creatinine [Mass ratio] 11 mg[facility]BD/PELVIS WO CONon 05-15 CT [...] transplanted kidney with moderate right-sided hydronephrosis. Atrophic [place] kidneys with moderate right-sided hydronephrosis. Multiple nonobstructive [...] transplanted kidney with moderate right-sided hydronephrosis. Atrophic [place] kidneys with moderate right-sided hydronephrosis. Multiple nonobstructive right renal calculi measuring up to 8 mm. FOLLOW-UP: Follow-up as clinically indicated. Electronically authenticated by: LYNDSAY JEAN Date: 2022-05-15 05:04 Normal [facility] Covid-19 PCR (CVDTBH)on 04-30 SARS-CoV-2 (COVID-19) RNA ESTELITA+probe Ql (Unsp spec) Not detected Normal NOT DETECTED [facility] Comment on above: Result Comment: [...] for this test is supported by the [place] of [employer] and Human Service's declaration that [...] Performed By: #### U RTPCR #### [facility] [address] [place] [address] Dr. Dwight Waters GLUCOSEon 05-15-2022 Glucose [Mass/Vol] 141 mg/dL High 70 - 99 mg/dL [facility] GOLD TOP TUBEon 05-15-2022 [facility] HEPATIC FUNCTION PANELon Albumin [Mass/Vol] 4.3 g/dL 3.5 - 5.0 g/dL [facility] ALP [Catalytic activity/Vol] 85 U/L 32 - 126 U/L [facility] ALT [Catalytic activity/Vol] 13 U/L 10 - 52 U/L [facility] AST [Catalytic activity/Vol] 15 U/L 10 - 39 U/L [facility] Bilirubin [Mass/Vol] 0.8 mg/dL <1.5 [facility] Bilirubin.direct [Mass/Vol] 0.2 mg/dL <0.3 [facility] Interpretation and review of laboratory results Normal [facility] Protein [Mass/Vol] 7.3 g/dL 6.4 - 8.3 g/dL [facility] LIPASEon 05-15-2022 Lipase [Catalytic activity/Vol] 8 U/L Low 11 - 82 U/L [facility] No Panel Informationon 05-15 Interpretation and review of laboratory results Abnormal [facility] PROF 14(COMP METB)on 022 Albumin [Mass/Vol] 3.8 g/dL Normal 3.4-5.0 [facility] Comment on above: Performed By: #### U RTPCR #### [facility] [address] [address] [address] Dwight Waters Albumin/Globulin [Mass ratio] 1.1 {ratio} Normal [facility] Comment on above: Performed By: #### U RTPCR #### [facility] [address] [place] [address] Dr. Dwight Waters ALP [Catalytic activity/Vol] 92 U/L Normal 46-116 [facility] Comment on above: Performed By: #### U RTPCR #### [facility] [address] [address] [address] Dwight Waters ALT [Catalytic activity/Vol] 25 U/L Normal 16-63 [facility] Comment on above: Performed By: #### U RTPCR #### [facility] [address] [address] [address] Dwight Waters Anion gap [Moles/Vol] 14.6 mmol/L Normal [facility] Comment on above: Performed By: #### U RTPCR #### [facility] [address] [address] [address] Dwight Waters AST [Catalytic activity/Vol] 17 U/L Normal 15-37 [facility] Comment on above: Performed By: #### U RTPCR #### [facility] [address] [address] [address] Dwight Waters Bilirubin [Mass/Vol] 0.6 mg/dL Normal 0.2-1.0 [facility] Comment on above: Performed By: #### U RTPCR #### [facility] [address] [address] [address] Dwight Waters Calcium [Mass/Vol] 9.9 mg/dL Normal 8.5-10.1 [facility] Comment on above: Performed By: #### U RTPCR #### [facility] [address] [address] [address] Dwight Waters Chloride [Moles/Vol] 106 mmol/L Normal 98-107 [facility] Comment on above: Performed By: #### U RTPCR #### [facility] [address] [address] [address] Dwight Waters CO2 [Moles/Vol] 24.2 mmol/L Normal 21.0-32.0 [facility] Comment on above: Performed By: #### U RTPCR #### [facility] [address] [place] [address] Dr. Dwight Waters Creatinine [Mass/Vol] 1.58 mg/dL Critically high 0.70-1.30 [facility] Comment on above: Performed By: #### U RTPCR #### [facility] [address] [address] [address] Dwight Waters EGFR-AF RWANDAN 56 mL/min/1.73m2 Critically low >=60 [facility] Comment on above: Performed By: #### U RTPCR #### [facility] [address] [place] [address] Dr. Dwight Waters EGFR-NON AF RWANDAN 46 mL/min/1.73m2 Critically low >=60 [facility] Comment on above: Performed By: #### U RTPCR #### [facility] [address] [address] [address] Dwight Waters Globulin (S) [Mass/Vol] 3.5 g/dL Normal [facility] Comment on above: Performed By: #### U RTPCR #### [facility] [address] [address] [address] Dwight Waters Glucose [Mass/Vol] 162 mg/dL Critically high 74-106 [facility] Comment on above: Performed By: #### U RTPCR #### [facility] [address] [address] [address] Dwight Waters Potassium [Moles/Vol] 3.8 mmol/L Normal 3.5-5.1 [facility] Comment on above: Performed By: #### U RTPCR #### [facility] [address] [address] [address] Dwight Waters Protein [Mass/Vol] 7.3 g/dL Normal 6.4-8.2 [facility] Comment on above: Performed By: #### U RTPCR #### [facility] [address] [address] [address] Dwight Waters Sodium [Moles/Vol] 141 mmol/L Normal 136-145 [facility] Comment on above: Performed By: #### U RTPCR #### [facility] [address] [address] [address] Dwight Waters Urea nitrogen [Mass/Vol] 22.0 mg/dL Critically high 7.0-18.0 [facility] Comment on above: Performed By: #### U RTPCR #### [facility] [address] [address] [address] Dwight Waters Urea nitrogen/Creatinine [Mass ratio] 13.9 mg/mg Normal [facility] Comment on above: Performed By: #### U RTPCR #### [facility] [address] [address] [address] Dwight Waters Portable XR Chest Viewson [...] IMPRESSION: No acute cardiopulmonary disease [facility] Radiology Study observation (narrative) [facility] Portable XR Chest ViewsOrder ed By: Vladislav Omer on 05-15-2022 [facility] URINE DIPSTICK; REFLEX MICRO SCOPY; REFLEX CULTURE PERFORMABLEon 05-15-2022 Appearance (U) Clear Clear [facility] Color (U) Yellow Yellow [facility] Glucose Test strip (U) [Mass/Vol] 100 mg/dL Abnormal Negative [facility] Interpretation and review of laboratory results Abnormal [facility] Ketones (U) [Mass/Vol] Negative Negative [facility] Leukocyte esterase Test strip Ql (U) Large Abnormal Negative [facility] Nitrite Ql (U) Negative Negative [facility] pH (U) 6.0 [pH] 5.0 - 7.0 [facility] Protein (U) [Mass/Vol] 100 mg/dL Abnormal Negative [facility] RBC (U) [#/Vol] Large Abnormal Negative [facility] Specific gravity (U) [Rel density] 1.010 [facility] Urobilinogen (U) [Mass/Vol] 0.2 E.U./dL 0.2 E.U/dL, 1.0 E.U/dL [facility] URINE MICROSCOPIC WITH REFLE X TO CULTUREOrdered By: Rey Bro on 05-15-2022 Bacteria LM Ql (Urine sed) ABSENT ABSENT [facility] Epithelial cells.squamous LM Ql (Urine sed) ABSENT 1/hpf = 1+, 2-5/hpf = 2+, 0/hpf = 0+, ABSENT [facility] Interpretation and review of laboratory results Abnormal [facility] RBC LM.HPF (Urine sed) [#/Area] /[HPF] Abnormal 0 - 2 /HPF [facility] WBC LM.HPF (Urine sed) [#/Area] 10-20 Abnormal 0 - 5 /HPF [facility] CT ABD/PELVIS WO CONon 05-12 CT ABD/PELVIS WO CON Begin Addendum #[address] Lund 3:25 PM EST 05/11/2022. Begin Addendum #2 IMPRESSION below should also contain the followin. 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 The [place] kidneys are progressively atrophic bilaterally compared to [...] of 06/14/2020 are no longer present. The [place] distal right ureter is decompressed beyond this [...] with surgical history for renal graft and [place] right urinary drainage, as a discrete ureteroneocystostomy is not identified, and the graft may be draining via a ureteroureterostomy. Urology consultation recommended. 3. The [place] kidneys are bilaterally atrophic, with right renal sinus calcifications consistent with nonobstructing right [place] renal calculi up to 6 mm. Normal [facility] CBC AUTO DIFFon 05-11-2022 BASO # 0.1 103/ul Normal 0.0-0.1 [facility] Comment on above: Performed By: #### U RTPCR #### [facility] [address], [place] [address] Dr. Dwight Wtaers Basophils/100 WBC (Bld) 0.8 % Normal 0.2-2.0 [facility] Comment on above: Performed By: #### U RTPCR #### [facility] [address] [place], [place] [address] Dr. Dwight Waters EO # 0.2 103/ul Normal 0.0-0.7 [facility] Comment on above: Performed By: #### U RTPCR #### [facility] [address] [place] [address] Dr. Dwight Waters Eosinophils/100 WBC (Bld) 2.5 % Normal 0.9-7.0 [facility] Comment on above: Performed By: #### U RTPCR #### [facility] [address] [place] [address] Dr. Dwight Waters Erythrocyte distribution width (RBC) [Ratio] 12.5 % Normal 11.0-15.0 [facility] Comment on above: Performed By: #### U RTPCR #### [facility] [address] [place] [address] Dr. Dwight Waters Hematocrit (Bld) [Volume fraction] 48.3 % Normal 42.0-54.0 [facility] Comment on above: Performed By: #### U RTPCR #### [facility] [address] [place] [address] Dr. Dwight Waters Hemoglobin (Bld) [Mass/Vol] 15.3 g/dL Normal 14.0-18.0 [facility] Comment on above: Performed By: #### U RTPCR #### [facility] [address] [place] [address] Dr. Dwight Waters IG # 0.01 10e3/ul Normal 0.00-0.03 [facility] Comment on above: Performed By: #### U RTPCR #### [facility] [address] [place] [address] Dr. Dwight Waters IG % 0.2 % Normal 0.0-0.5 [facility] Comment on above: Performed By: #### U RTPCR #### [facility] [address] [place] [address] Dr. Dwight Waters LYMPH # 1.9 103/ul Normal 1.2-3.8 [facility] Comment on above: Performed By: #### U RTPCR #### [facility] [address] [place] [address] Dr. Dwight Waters Lymphocytes/100 WBC (Bld) 29.8 % Normal 20.5-60.0 [facility] Comment on above: Performed By: #### U RTPCR #### [facility] [address] [place] [address] Dr. Dwight Waters MANUAL DIFF REQ NO Normal [facility] Comment on above: Performed By: #### U RTPCR #### [facility] [address] [place] [address] Dr. Dwight Waters MCH (RBC) [Entitic mass] 28.2 pg Normal 25.9-34.0 [facility] Comment on above: Performed By: #### U RTPCR #### [facility] [address] [place] [address] Dr. Dwight Waters MCHC (RBC) [Mass/Vol] 31.7 g/dL Normal 29.9-35.2 [facility] Comment on above: Performed By: #### U RTPCR #### [facility] [address] [place] [address] Dr. Dwight Waters MCV (RBC) [Entitic vol] 89.1 fL Normal 80.0-94.0 [facility] Comment on above: Performed By: #### U RTPCR #### [facility] [address] [place] [address] Dr. Dwight Waters MONO # 0.6 103/ul Normal 0.3-0.8 [facility] Comment on above: Performed By: #### U RTPCR #### [facility] [address] [place] [address] Dr. Dwight Waters Monocytes/100 WBC (Bld) 9.0 % Normal 1.7-12.0 [facility] Comment on above: Performed By: #### U RTPCR #### [facility] [address] [place] [address] Dr. Dwight Waters NEUT # 3.6 103/ul Normal 1.4-6.5 [facility] Comment on above: Performed By: #### U RTPCR #### [facility] [address] [place] [address] Dr. Dwight Waters Neutrophils/100 WBC (Bld) 57.7 % Normal 43.0-75.0 [facility] Comment on above: Performed By: #### U RTPCR #### [facility] [address] [place] [address] Dr. Dwight Waters Platelet mean volume (Bld) [Entitic vol] 9.9 fL Normal 9.5-13.5 [facility] Comment on above: Performed By: #### U RTPCR #### [facility] [address] [place] [address] Dr. Dwight Waters PLT 249 103/ul Normal 150-450 [facility] Comment on above: Performed By: #### U RTPCR #### [facility] [address] [place] [address] Dr. Dwight Waters RBC 5.42 106/ul Normal 4.70-6.10 [facility] Comment on above: Performed By: #### U RTPCR #### [facility] [address] [place] [address] Dr. Dwight Waters WBC 6.3 103/ul Normal 4.0-11.0 [facility] Comment on above: Performed By: #### U RTPCR #### [facility] [address] [place] [address] Dr. Dwight Waters ER URINE PROFILEon 2 Bilirubin Ql (U) Unable to perform te sting due to color interference. Abnormal NEGATIVE [facility] Comment on above: Performed By: #### U RTPCR #### [facility] [address] [place] [address] Dr. Dwight Waters Clarity (U) TURBID Abnormal CLEAR [facility] Comment on above: Performed By: #### U RTPCR #### [facility] [address] [place] [address] Dr. Dwight Waters Color (U) RED Abnormal YELLOW [facility] Comment on above: Performed By: #### U RTPCR #### [facility] [address] [place] [address] Dr. Dwight Waters ERUAHD A micrscopic examina tion will be performed if indicated. Normal [facility] Comment on above: Performed By: #### U RTPCR #### [facility] [address] [place] [address] Dr. Dwight Waetrs Glucose Ql (U) Unable to perform te sting due to color interference. Abnormal NEGATIVE [facility] Comment on above: Performed By: #### U RTPCR #### [facility] [address] [place] [address] Dr. Dwight Waters Hemoglobin Ql (U) Unable to perform te sting due to color interference. Abnormal NEGATIVE [facility] Comment on above: Performed By: #### U RTPCR #### [facility] [address] [place] [address] Dr. Dwight Waters Ketones Ql (U) Unable to perform te sting due to color interference. Abnormal NEGATIVE [facility] Comment on above: Performed By: #### U RTPCR #### [facility] [address] [place] [address] Dr. Dwight Waters LEUKOCYTES Unable to perform te sting due to color interference. Abnormal NEGATIVE [facility] Comment on above: Performed By: #### U RTPCR #### [facility] [address] [place] [address] Dr. Dwight Waters Nitrite Ql (U) Unable to perform te sting due to color interference. Abnormal NEGATIVE [facility] Comment on above: Performed By: #### U RTPCR #### [facility] [address] [place] [address] Dr. Dwight Waters pH (U) 6.5 [pH] Normal 5-9 [facility] Comment on above: Performed By: #### U RTPCR #### [facility] [address] [place] [address] Dr. Dwight Waters SPEC GRAVITY 1.020 Normal 1.005-<=1.02 5 [facility] Comment on above: Performed By: #### U RTPCR #### [facility] [address] [place] [address] Dr. Dwight Waters UA PROTEIN Unable to perform te sting due to color interference. Normal NEGATIVE/ TRACE [facility] Comment on above: Performed By: #### U RTPCR #### [facility] [address] [place] [address] Dr. Dwight Waters UR MICRO IND INDICATED Normal [facility] Comment on above: Performed By: #### U RTPCR #### [facility] [address] [place] [address] Dr. Dwight Waters UROBILINOGEN Unable to perform te sting due to color interference. Normal 0.2 - 1.0 [facility] Comment on above: Performed By: #### U RTPCR #### [facility] [address] [place] [address] Dr. Dwight Waters PROF 14(COMP METB)on 022 Albumin [Mass/Vol] 3.8 g/dL Normal 3.4-5.0 [facility] Comment on above: Performed By: #### C MP #### [facility] [address] [place] [address] Dr. Dwight Waters Albumin/Globulin [Mass ratio] 1.1 {ratio} Normal [facility] Comment on above: Performed By: #### C MP #### [facility] [address] [place] [address] Dr. Dwight Waters ALP [Catalytic activity/Vol] 106 U/L Normal 46-116 [facility] Comment on above: Performed By: #### C MP #### [facility] [address] [place] [address] Dr. Dwight Waters ALT [Catalytic activity/Vol] 30 U/L Normal 16-63 [facility] Comment on above: Performed By: #### C MP #### [facility] [address] [place] [address] Dr. Dwight Waters Anion gap [Moles/Vol] 11.7 mmol/L Normal [facility] Comment on above: Performed By: #### C MP #### [facility] [address] [place] [address] Dr. Dwight Waters AST [Catalytic activity/Vol] 16 U/L Normal 15-37 [facility] Comment on above: Performed By: #### C MP #### [facility] [address] [place] [address] Dr. Dwight Waters Bilirubin [Mass/Vol] 0.6 mg/dL Normal 0.2-1.0 [facility] Comment on above: Performed By: #### C MP #### [facility] [address] [place] [address] Dr. Dwight Waters Calcium [Mass/Vol] 9.1 mg/dL Normal 8.5-10.1 [facility] Comment on above: Performed By: #### C MP #### [facility] [address] [place] [address] Dr. Dwight Waters CO2 [Moles/Vol] 27.4 mmol/L Normal 21.0-32.0 [facility] Comment on above: Performed By: #### C MP #### [facility] [address] [place] [address] Dr. Dwight Waters Creatinine [Mass/Vol] 1.18 mg/dL Normal 0.70-1.30 [facility] Comment on above: Performed By: #### C MP #### [facility] [address] [place] [address] Dr. Dwight Waters EGFR-AF RWANDAN >60 Normal >=60 [facility] Comment on above: Performed By: #### C MP #### [facility] [address] [place] [address] Dr. Dwight Waters EGFR-NON AF RWANDAN >60 Normal >=60 [facility] Comment on above: Performed By: #### C MP #### [facility] [address] [place] [address] Dr. Dwight Waters Globulin (S) [Mass/Vol] 3.6 g/dL Normal [facility] Comment on above: Performed By: #### C MP #### [facility] [address] [place] [address] Dr. Dwight Waters Glucose [Mass/Vol] 192 mg/dL Critically high 74-106 [facility] Comment on above: Performed By: #### C MP #### [facility] [address] [place] [address] Dr. Dwight Waters Potassium [Moles/Vol] 4.1 mmol/L Normal 3.5-5.1 [facility] Comment on above: Performed By: #### C MP #### [facility] [address] [place] [address] Dr. Dwight Waters Protein [Mass/Vol] 7.4 g/dL Normal 6.4-8.2 [facility] Comment on above: Performed By: #### C MP #### [facility] [address] [place] [address] Dr. Dwight Waters Sodium [Moles/Vol] 142 mmol/L Normal 136-145 [facility] Comment on above: Performed By: #### C MP #### [facility] [address] [place] [address] Dr. Dwight Waters Urea nitrogen [Mass/Vol] 17.0 mg/dL Normal 7.0-18.0 [facility] Comment on above: Performed By: #### C MP #### [facility] [address] [place] [address] Dr. Dwight Waters Urea nitrogen/Creatinine [Mass ratio] 14.4 mg/mg [facility] Comment on above: Performed By: #### C MP #### [facility] [address] [place] [address] Dr. Dwight Waters URINE MICROSCOPIC ONLYon BACTERIA NONE SEEN Normal NONE SEEN [facility] Comment on above: Performed By: #### U RTPCR #### [facility] [address] [place] [address] Dr. Dwight Waters Bacteria identified Cx Nom (U) NOT INDICATED Normal [facility] Comment on above: Performed By: #### U RTPCR #### [facility] [address] [place] [address] Dr. Dwight Waters CAST NONE SEEN Normal NONE SEEN [facility] Comment on above: Performed By: #### U RTPCR #### [facility] [address] [place] [address] Dr. Dwight Waters Crystals LM Nom (Urine sed) NONE SEEN Normal NONE SEEN [facility] Comment on above: Performed By: #### U RTPCR #### [facility] [address] [place] [address] Dr. Dwight Waters Epithelial cells LM Ql (Urine sed) RARE Normal NONE SEEN /RARE [facility] Comment on above: Performed By: #### U RTPCR #### [facility] [address] [address] [address] Dwight Waters MUCOUS NONE SEEN Normal NONE SEEN [facility] Comment on above: Performed By: #### U RTPCR #### [facility] [address] [address] [address] Dwight Waters RBC (U) [#/Vol] /uL Abnormal 0-2 [facility] Comment on above: Performed By: #### U RTPCR #### [facility] [address] [address] [address] Dwight Waters WBC NONE SEEN Normal NONE SEEN [facility] Comment on above: Performed By: #### U RTPCR #### [facility] [address] [place] [address] Dr. Dwight Waters K (Potassium)on 01-06-2020 Potassium [Moles/Vol] 4.4 mmol/L Normal 3.7-5.3 [facility] Comment on above: Performed By: #### K #### [facility] [address] [place] [address] Conversion Developer: Kehinde Woodward MD Potassiumon 01-06-2020 Potassium [Moles/Vol] 4.4 mmol/L 3.7 - 5.3 mmol/L [facility] Work Phone: Hemoglobin and Hematocrit, B loodon 10-24-2019 Hematocrit (Bld) [Volume fraction] 23.6 % Low 40.7 - 50.3 % [place], [place] Hemoglobin (Bld) [Mass/Vol] 7.3 g/dL Low 13 - 17 g/dL [place] Interpretation and review of laboratory results Abnormal [place] Hgb/Hcton 10-24-2019 Hematocrit (Bld) [Volume fraction] 23.6 % Low 40.7-50.3 [facility] Comment on above: Performed By: #### H H #### [facility] [address] [place] [address] Conversion Developer: Kehinde Woodward MD Hemoglobin (Bld) [Mass/Vol] 7.3 g/dL Low 13.0-17.0 [facility] Comment on above: Performed By: #### H H #### [facility] [address] [place] [address] Conversion Developer: Kehinde Woodward MD Hemoglobinon 08-27-2019 Hemoglobin (Bld) [Mass/Vol] 7.5 g/dL Low 13.0-17.0 [facility] Comment on above: Performed By: #### H GB #### [facility] [address] [place], [place] [id number] Conversion Developer: Kehinde Woodward MD Hemoglobin (Bld) [Mass/Vol] 7.5 g/dL Low 13 - 17 g/dL [place] Interpretation and review of laboratory results Abnormal [place] Hemoglobinon 08-08-2019 Hemoglobin (Bld) [Mass/Vol] 8.3 g/dL Low 13.0-17.0 [facility] Comment on above: Performed By: #### H GB #### [facility] [address] [place] [address] Conversion Developer: Kehinde Woodward MD Hemoglobin (Bld) [Mass/Vol] 8.3 g/dL Low 13 - 17 g/dL [place] Interpretation and review of laboratory results Abnormal [place] Hemoglobinon 08-04-2019 Hemoglobin (Bld) [Mass/Vol] 8.0 g/dL Low 13.0-17.0 [facility] Comment on above: Performed By: #### H GB #### [facility] [address] [place], [place] [address] Conversion Developer: Kehinde Woodward MD Hemoglobin A1Con 08-03-2019 HbA1c (Bld) [Mass fraction] % Low 4.8-5.9 [facility] Comment on above: Result Comment: The ADA and AACC recommend providing the estimated average glucose result to permit better patient understanding of their HBA1c result. Performed By: #### G LYHGB #### [facility] [address] [place] [address] Conversion Developer: Kehinde Woodward MD Glucose [Mass/Vol] mg/dL mg/dL [place], [place] Comment on above: The ADA and AACC rec ommend providing the estimated average glucose result to permit better patient understanding of their HBA1c result. HbA1c (Bld) [Mass fraction] % Low 4.8 - 5.9 % [place] Interpretation and review of laboratory results Abnormal [place] Hemoglobinon 08-01-2019 Hemoglobin (Bld) [Mass/Vol] 8.1 g/dL Low 13.0-17.0 [facility] Comment on above: Performed By: #### H GB #### [facility] [address] [place] [address] Conversion Developer: Kehinde Woodward MD Hemoglobin (Bld) [Mass/Vol] 8.1 g/dL Low 13 - 17 g/dL [place] Interpretation and review of laboratory results Abnormal [place] Hgb/Hcton 06-10-2019 Hematocrit (Bld) [Volume fraction] 24.3 % Low 40.7-50.3 [facility] Comment on above: Performed By: #### H H #### [facility] [address] [place] [address] [place] [address] Conversion Developer: Kehinde Woodward MD Hemoglobin (Bld) [Mass/Vol] 7.4 g/dL Low 13.0-17.0 [facility] Comment on above: Performed By: #### H H #### [facility] [address] [place] [address] Conversion Developer: Kehinde Woodward MD Hemoglobinon 06-01-2019 Hemoglobin (Bld) [Mass/Vol] 7.2 g/dL Low 13.0-17.0 [facility] Comment on above: Performed By: #### H GB #### [facility] [address] [place] [address] Conversion Developer: Kehinde Woodward MD K (Potassium)on 01-14-2019 Potassium [Moles/Vol] 3.6 mmol/L Low 3.7-5.3 [facility] Comment on above: Performed By: #### K #### [facility] [address] [place] [address] Conversion Developer: Kehinde Woodward MD Otheron 10-19-2018 IMPRESSION: [...] characteristics determined by Toxicology Laboratory at [facility]. It has not been cleared or [...] Amitriptyline(50), Amphetamine(250), Atenolol(500), Barbiturates(1000), Benzoylecgonine(50), Buprenorphine(50), Bupropion(25), Caffeine(70919), Chlordiazepoxide(50), Chlorpheniramine(100), Chlorpromazine(50), Citalopram(100), Clonazepam(200), Cocaine(25), Codeine(200), [...] [place], [facility] TOXICOLOG[facility]CREEN [facility] Drugs identified Screen Nom (U) For Medical Purposes Only, Non-forensic, screen results are presumptive. No confirmatory testing will follow. Invalid Interpretation Code LAB, [facility] Comment on above: This Liquid Chromato graphy Mass Spectrometry (LC/MS/MS) test was developed and its performance characteristics determined by Toxicology Laboratory at [facility]. It has not been cleared or [...] Amitriptyline(50), Amphetamine(250), Atenolol(500), Barbiturates(200), Benzoylecgonine(50), Buprenorphine(500), Bupropion(25), Caffeine(41091), Cannabinoids(THC)(50), Chlordiazepoxide(50), Chlorpheniramine(100), Chlorpromazine(50), Citalopram(100), Clonazepam(200), Cocaine(25), [...] index (BMI) [Ratio] 29.43 kg/m2 Rebeca Gutierrez STUDY LEAD-MAINTENANCE LEADER Work Phone: [facility] 06-17-2024 08:37-0400 Body temperature 97.39 [degF] Rebeca Gutierrez STUDY LEAD-MAINTENANCE LEADER Work Phone: [facility] 06-17-2024 08:37-0400 Body weight 85.23 kg Rebeca Gutierrez STUDY LEAD-MAINTENANCE LEADER Work Phone: [facility] 06-17-2024 08:37-0400 Diastolic blood pressure 75 mm[Hg] Rebeca Gutierrez STUDY LEAD-MAINTENANCE LEADER Work Phone: [facility] 06-17-2024 08:37-0400 Heart rate 53 /min Rebeca Gutierrez STUDY LEAD-MAINTENANCE LEADER Work Phone: [facility] 06-17-2024 08:37-0400 Systolic blood pressure 143 mm[Hg] Rebeca Gutierrez STUDY LEAD-MAINTENANCE LEADER Work Phone: [facility] 06-17-2024 08:36-0400 Body mass index (BMI) [Ratio] 29.43 kg/m2 Daisha Sobotka DO Work Phone: [facility] 06-17-2024 08:36-0400 Body temperature 97.39 [degF] Daisha Sobotka DO Work Phone: [facility] 06-17-2024 08:36-0400 Body weight 85.23 kg Daisha Sobotka DO Work Phone: [facility] 06-17-2024 08:36-0400 Diastolic blood pressure 75 mm[Hg] Daisha Max DO Work Phone: [facility] 06-17-2024 08:36-0400 Heart rate 53 /min Daisha Max DO Work Phone: [facility] 06-17-2024 08:36-0400 Systolic blood pressure 143 mm[Hg] Daisha Max DO Work Phone: [facility] 02-26-2024 09:07-0400 Diastolic blood pressure 56 mm[Hg] Candie Almaguer MD Work Phone: [facility] 02-26-2024 09:07-0400 Heart rate 65 /min Candie Almaguer MD Work Phone: [facility] 02-26-2024 09:07-0400 Systolic blood pressure 113 mm[Hg] Candie Almaguer MD Work Phone: [facility] 02-26-2024 09:06-0400 Body height 170.2 cm Candie Almaguer MD Work Phone: [facility] 02-26-2024 09:06-0400 Body mass index (BMI) [Ratio] 28.9 kg/m2 Candie Almaguer MD Work Phone: [facility] 02-26-2024 09:06-0400 Body weight 83.69 kg Candie Almaguer MD Work Phone: [facility] 02-26-2024 09:06-0400 Respiratory rate 20 /min Candie Almaguer MD Work Phone: [facility] 02-26-2024 09:06-0400 SaO2% (BldA) [Mass fraction] 97 % Candie Almaguer MD Work Phone: [facility] 01-23-2024 15:04-0500 Body temperature 97.9 [degF] Kevin Sage MD Work Phone: [facility] 01-23-2024 15:04-0500 Diastolic blood pressure 67 mm[Hg] Kevin Sage MD Work Phone: [facility] 01-23-2024 15:04-0500 Heart rate 51 /min Kevin Sage MD Work Phone: [facility] 01-23-2024 15:04-0500 Respiratory rate 16 /min Kevin Sage MD Work Phone: [facility] 01-23-2024 15:04-0500 SaO2% (BldA) [Mass fraction] 94 % Kevin Sage MD Work Phone: [facility] 01-23-2024 15:04-0500 Systolic blood pressure 151 mm[Hg] Kevin Sage MD Work Phone: [facility] 01-23-2024 10:46-0500 Body mass index (BMI) [Ratio] 30.94 kg/m2 Kevin Sage MD Work Phone: [facility] 01-23-2024 10:46-0500 Body weight 89.6 kg Kevin Sage MD Work Phone: [facility] 01-18-2024 11:21-0500 Body height 170.2 cm Kevin Sage MD Work Phone: [facility] 01-06-2024 09:04-0500 Body height 170.2 cm Zuly Bruno COPY DIRECTOR Work Phone: [facility] 01-06-2024 09:04-0500 Body mass index (BMI) [Ratio] 32.42 kg/m2 Zuly Bruno COPY DIRECTOR Work Phone: [facility] 01-06-2024 09:04-0500 Body temperature 97.81 [degF] Zuly Owenhholz COPY DIRECTOR Work Phone: [facility] 01-06-2024 09:04-0500 Body weight 93.89 kg Zuly Kristopherhholz COPY DIRECTOR Work Phone: [facility] 01-06-2024 09:04-0500 Diastolic blood pressure 70 mm[Hg] Uzly Aichholz COPY DIRECTOR Work Phone: [facility] 01-06-2024 09:04-0500 Heart rate 95 /min Zuly Aichholz COPY DIRECTOR Work Phone: [facility] 01-06-2024 09:04-0500 Respiratory rate 17 /min Zuly Aichholz COPY DIRECTOR Work Phone: [facility] 01-06-2024 09:04-0500 SaO2% (BldA) [Mass fraction] 99 % Zuly Kristopherhholz COPY DIRECTOR Work Phone: [facility] 01-06-2024 09:04-0500 Systolic blood pressure 138 mm[Hg] Zuly Aichholz COPY DIRECTOR Work Phone: [facility] 09-11-2023 10:31-0400 Body temperature 97.81 [degF] Steve Yeison MBBS Work Phone: [facility] 09-11-2023 10:31-0400 Diastolic blood pressure 66 mm[Hg] Steve Yeison MBBS Work Phone: [facility] 09-11-2023 10:31-0400 Heart rate 70 /min Steve Yeison MBBS Work Phone: [facility] 09-11-2023 10:31-0400 Respiratory rate 20 /min Steve Yeison MBBS Work Phone: [facility] 09-11-2023 10:31-0400 SaO2% (BldA) [Mass fraction] 91 % Steve Yeison MBBS Work Phone: [facility] 09-11-2023 10:31-0400 Systolic blood pressure 129 mm[Hg] Steve Yeison MBBS Work Phone: [facility] 09-10-2023 15:50-0400 Body mass index (BMI) [Ratio] 31.99 kg/m2 Steve Yeison MBBS Work Phone: [facility] 09-10-2023 15:50-0400 Body weight 92.67 kg Steve Yeison MBBS Work Phone: [facility] 09-02-2023 07:32-0400 Body height 170.2 cm Steve Yeison MBBS Work Phone: [facility] 08-28-2023 13:33-0400 Body height 170.2 cm Steve Yeison MBBS Work Phone: [facility] 08-28-2023 13:33-0400 Body mass index (BMI) [Ratio] 32.12 kg/m2 Steve Yeison MBBS Work Phone: [facility] 08-28-2023 13:33-0400 Body temperature 97.3 [degF] Steve Yeison MBBS Work Phone: [facility] 08-28-2023 13:33-0400 Body weight 93.03 kg Steve Yeison MBBS Work Phone: [facility] 08-28-2023 13:33-0400 Diastolic blood pressure 41 mm[Hg] Steve Yeison MBBS Work Phone: [facility] 08-28-2023 13:33-0400 Heart rate 116 /min Steve Yeison MBBS Work Phone: [facility] 08-28-2023 13:33-0400 Systolic blood pressure 106 mm[Hg] Steve Yeison MBBS Work Phone: [facility] 06-12-2023 14:50-0400 Body mass index (BMI) [Ratio] 33.8 kg/m2 Rebeca Gutierrez STUDY LEAD-MAINTENANCE LEADER Work Phone: [facility] 06-12-2023 14:50-0400 Body temperature 97.3 [degF] Rebeca Gutierrez STUDY LEAD-MAINTENANCE LEADER Work Phone: [facility] 06-12-2023 14:50-0400 Body weight 97.89 kg Rebeca Gutierrez STUDY LEAD-MAINTENANCE LEADER Work Phone: [facility] 06-12-2023 14:50-0400 Diastolic blood pressure 77 mm[Hg] Rebeca Gutierrez STUDY LEAD-MAINTENANCE LEADER Work Phone: [facility] 06-12-2023 14:50-0400 Heart rate 76 /min Rebeca Gutierrez STUDY LEAD-MAINTENANCE LEADER Work Phone: [facility] 06-12-2023 14:50-0400 Systolic blood pressure 146 mm[Hg] Rebeca Gutierrez STUDY LEAD-MAINTENANCE LEADER Work Phone: [facility] 01-16-2023 08:57-0500 Body height 170.[address] [facility] Work Phone: [facility] 01-16-2023 08:57-0500 Body mass index (BMI) [Ratio] 33.66 kg/m2 [facility] Work Phone: [facility] 01-16-2023 08:57-0500 Body temperature 97.3 [degF] [facility] Work Phone: [facility] 01-16-2023 08:57-0500 Body weight 97.[address] [facility] Work Phone: [facility] 01-16-2023 08:57-0500 Diastolic blood pressure 75 mm[Hg] [facility] Work Phone: [facility] 01-16-2023 08:57-0500 Heart rate 76 /min [facility] Work Phone: [facility] 01-16-2023 08:57-0500 Systolic blood pressure 142 mm[Hg] [facility] Work Phone: [facility] 09-10-2022 09:38-0400 Body height 170.2 cm Ryan Yepez MD Work Phone: [facility] 09-10-2022 09:38-0400 Body mass index (BMI) [Ratio] 33.67 kg/m2 Ryan Yepez MD Work Phone: [facility] 09-10-2022 09:38-0400 Body weight 97.52 kg Ryan Yepez MD Work Phone: [facility] 09-10-2022 09:38-0400 Diastolic blood pressure 83 mm[Hg] Ryan Yepez MD Work Phone: [facility] 09-10-2022 09:38-0400 Heart rate 64 /min Ryan Yepez MD Work Phone: [facility] 09-10-2022 09:38-0400 SaO2% (BldA) [Mass fraction] 96 % Ryan Yepez MD Work Phone: [facility] 09-10-2022 09:38-0400 Systolic blood pressure 129 mm[Hg] Ryan Yepez MD Work Phone: [facility] 07-07-2022 13:48-0400 Diastolic blood pressure 76 mm[Hg] Ryan Yepez MD Work Phone: [facility] 07-07-2022 13:48-0400 Heart rate 82 /min Ryan Yepez MD Work Phone: [facility] 07-07-2022 13:48-0400 SaO2% (BldA) [Mass fraction] 96 % Ryan Yepez MD Work Phone: [facility] 07-07-2022 13:48-0400 Systolic blood pressure 141 mm[Hg] Ryan Yepez MD Work Phone: [facility] 06-27-2022 13:32-0400 Body height 170.2 cm Ryan Yepez MD Work Phone: [phone](061)[phone] [address] 06-27-2022 13:32-0400 Body mass index (BMI) [Ratio] 34.24 kg/m2 Ryan Yepez MD Work Phone: [phone](325)[phone] [address] 06-27-2022 13:32-0400 Body temperature 98.6 [degF] Ryan Yepez MD Work Phone: [phone](550)[phone] [address] 06-27-2022 13:32-0400 Body weight 99.16 kg Ryan Yepez MD Work Phone: 1(242)[phone] [address] 06-27-2022 13:32-0400 Diastolic blood pressure 78 mm[Hg] Ryan Yepez MD Work Phone: [facility] 06-27-2022 13:32-0400 Heart rate 77 /min Ryan Yepez MD Work Phone: [phone])[phone] [address] 06-27-2022 13:32-0400 SaO2% (BldA) [Mass fraction] 95 % Ryan Yepez MD Work Phone: [facility] 06-27-2022 13:32-0400 Systolic blood pressure 121 mm[Hg] Ryan Yepez MD Work Phone: [facility] 06-27-2022 10:52-0400 Body height 170.2 cm Rena Brewster RN [facility] 06-27-2022 10:52-0400 Body mass index (BMI) [Ratio] 34.46 kg/m2 Rena Brewster RN [facility] 06-27-2022 10:52-0400 Body temperature 98.2 [degF] Rena Brewster RN [facility] 06-27-2022 10:52-0400 Body weight 99.79 kg Rena Brewster RN [facility] 06-27-2022 10:52-0400 Diastolic blood pressure 73 mm[Hg] Rena Brewster RN [facility] 06-27-2022 10:52-0400 Heart rate 78 /min Rena Brewster RN [facility] 06-27-2022 10:52-0400 Respiratory rate 20 /min Rena Brewster RN [facility] 06-27-2022 10:52-0400 SaO2% (BldA) [Mass fraction] 97 % Rena Brewster RN [facility] 06-27-2022 10:52-0400 Systolic blood pressure 135 mm[Hg] Rena Brewster RN [facility] 06-12-2022 14:23-0400 Body mass index (BMI) [Ratio] 34.59 kg/m2 Steve Farrari MBBS Work Phone: [facility] 06-12-2022 14:23-0400 Body temperature 97 [degF] Steve Yeison MBBS Work Phone: [facility] 06-12-2022 14:23-0400 Body weight 100.2 kg Steve Yeison MBBS Work Phone: [facility] 06-12-2022 14:23-0400 Diastolic blood pressure 66 mm[Hg] Steve Yeison MBBS Work Phone: [facility] 06-12-2022 14:23-0400 Heart rate 63 /min Steve Yeison MBBS Work Phone: [facility] 06-12-2022 14:23-0400 Systolic blood pressure 133 mm[Hg] Steve LEIGH Work Phone: [facility] 05-20-2022 15:21-0400 Body temperature 97.9 [degF] Gian Villatoro MD Work Phone: [facility] 05-20-2022 15:21-0400 Diastolic blood pressure 64 mm[Hg] Gian Villatoro MD Work Phone: [facility] 05-20-2022 15:21-0400 Heart rate 55 /min Gian Villatoro MD Work Phone: [facility] 05-20-2022 15:21-0400 Respiratory rate 15 /min Gian Villatoro MD Work Phone: [facility] 05-20-2022 15:21-0400 SaO2% (BldA) [Mass fraction] 95 % Gian Villatoro MD Work Phone: [facility] 05-20-2022 15:21-0400 Systolic blood pressure 145 mm[Hg] Gian Villatoro MD Work Phone: [facility] 05-19-2022 12:15-0400 Body mass index (BMI) [Ratio] 35.87 kg/m2 Gian Villatoro MD Work Phone: [facility] 05-19-2022 12:15-0400 Body weight 103.92 kg Gian Villatoro MD Work Phone: [facility] Comment on above: standing scale 05-16-2022 16:19-0400 Body height 170.2 cm Gian Villatoro MD Work Phone: [facility] 10-19-2018 08:44-0500 BMI (Body Mass Index) 26.58 kg/m2 Christin Elizabeth [facility] Work Phone: 10-19-2018 08:44-0500 BP Diastolic 76 mm[Hg] [facility] Work Phone: 10-19-2018 08:44-0500 BP Systolic 144 mm[Hg] [facility] Work Phone: 10-19-2018 08:44-0500 Height 172.7 cm [facility] Work Phone: 10-19-2018 08:44-0500 Pulse (Heart Rate) 92 /min [facility] Work Phone: 10-19-2018 08:44-0500 Pulse Oximetry 99 % [facility] Work Phone: 10-19-2018 08:44-0500 Respiratory Rate 16 /min [facility] Work Phone: 10-19-2018 08:44-0500 Weight 79.29 kg [facility] Work Phone: 10-12-2018 09:50-0500 BMI (Body Mass Index) 27.24 kg/m2 [facility] Work Phone: 10-12-2018 09:50-0500 Body Temperature 98.6 [degF] [facility] Work Phone: 10-12-2018 09:50-0500 BP Diastolic 80 mm[Hg] [facility] Work Phone: 10-12-2018 09:50-0500 BP Systolic 157 mm[Hg] [facility] Work Phone: 10-12-2018 09:50-0500 Height 169.5 cm [facility] Work Phone: 10-12-2018 09:50-0500 Pulse (Heart Rate) 94 /min [facility] Work Phone: 10-12-2018 09:50-0500 Weight 78.29 kg [facility] Work Phone: Encounters Encounter Date Encounter Type Care Provider Facility Start: 06-23-2024 End: 06-23-2024 ambulatory [facility] [place] Start: 06-23-2024 End: 06-23-2024 Patient encounter procedure Meka [facility] [place] Start: 06-17-2024 End: 06-17-2024 Office outpatient visit 25 minutes Daisha Max DO Work Phone: [facility] Comment on above: Liver lesion (Primar y Dx); Liver transplant recipient; High risk medication use; Therapeutic drug monitoring; 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) Start: 06-17-2024 ambulatory DAISHA MAX Facil ity:[facility] [facility] Start: 05-26-2024 End: 05-26-2024 ambulatory Evan Bolton RPh,PharmD Pharmacy Outpatient [facility] [place] Start: 05-26-2024 End: 05-26-2024 Patient encounter procedure Evan Bolton RPh,PharmD Pharmacy Outpatient [facility] [place] Start: 05-13-2024 End: 05-13-2024 ambulatory [facility] Start: 04-18-2024 End: 04-18-2024 ambulatory ZULY BRUNO Not Available Start: 03-24-2024 End: 03-24-2024 Patient encounter procedure Angel Carpio RPh,PharmD Pharm[facility] [place] Start: 03-24-2024 End: 03-24-2024 ambulatory Angel Carpio [facility],PharmD Pharmacy Outpatient [facility] [place] Start: 03-22-2024 End: 03-22-2024 ambulatory JOHNNA BRINK Not Available Start: 03-17-2024 End: 03-17-2024 ambulatory JOHNNA BRINK Not Available Start: 03-14-2024 End: 03-14-2024 ambulatory FIDELINA MANDUJANOKARENY Not Available Start: 03-10-2024 End: 03-10-2024 ambulatory JOHNNA BRINK Not Available Start: 03-08-2024 End: 03-08-2024 ambulatory JOHNNA BRINK Not Available Start: 03-03-2024 End: 03-03-2024 ambulatory JOHNNA BRINK Not Available Start: 03-02-2024 End: 03-02-2024 ambulatory Meka Munoz [facility] Pharm[facility] Outpatient [facility] [place] Start: 03-02-2024 End: 03-02-2024 Patient encounter procedure Meka Munoz [facility] [place] Start: 03-01-2024 ambulatory ZULY ELENZ Facility: [facility] Start: 03-01-2024 End: 03-01-2024 ambulatory JOHNNA BRINK Not Available Start: 02-26-2024 ambulatory ZULY KRISTOPHERNINO Facility: [facility] Start: 02-26-2024 End: 02-26-2024 Office outpatient new 30 minutes Candie Almaguer MD Work Phone: [facility] Comment on above: Heart failure, diast olic, acute (Primary Dx) Start: 02-26-2024 ambulatory ZULY KRISTOPHERHLATISHAZ Facility: [facility] Start: 02-25-2024 End: 02-25-2024 ambulatory FIDELINAPAULETTE MANDUJANOKARENY Not Available Start: 02-23-2024 End: 02-23-2024 ambulatory PALMA PALACIOS Not Available Start: 02-11-2024 End: 02-11-2024 ambulatory ZULY AICHHOLZ Not Available Start: 01-16-2024 Encounter for other preprocedural examination KELVIN PACHECO [facility] Start: 01-16-2024 End: 01-23-2024 Evaluation and management of inpatient Kevin Sage MD Work Phone: [id number] Comment on above: Pleural effusion on right Start: 01-16-2024 End: 01-23-2024 Patient encounter status Kevin Sage MD Work Phone: [facility] Work Phone: Start: 01-12-2024 End: 01-12-2024 ambulatory Angel Fete RPh,PharmD Pharmacy Outpatient [facility] [place] Start: 01-12-2024 End: 01-12-2024 Patient encounter procedure Angel Fete RPh,PharmD [facility] [place] Start: 01-08-2024 Clinisync Result Encounter Generic External Data Provider [facility] External Department Unsolicited Start: 01-08-2024 Clinisync Result Encounter Generic External Data Provider [facility] External Department Unsolicited Start: 01-06-2024 End: 01-06-2024 ambulatory ZULY AICHHOLZ Not Available Start: 01-06-2024 End: 01-06-2024 Office outpatient visit 25 minutes Zuly Kiana COPY DIRECTOR Work Phone: [facility] Comment on above: Bilateral lower extr emity edema (Primary Dx); 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); Atherosclerosis 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); Obesity (BMI 30-39.9); DARLENE (obstructive sleep apnea); Tremor; Immunocompromised ([facility]); Primary hypertension ([facility]); Shortness of breath Start: 01-01-2024 Clinisync Result Encounter Generic External Data Provider [facility] External Department Unsolicited Start: 01-01-2024 Clinisync Result Encounter Generic External Data Provider [facility] External Department Unsolicited Start: 11-03-2023 End: 11-03-2023 ambulatory ZULY AICHHOLZ Not Available Start: 10-06-2023 ambulatory Angel Fete RPh,PharmD Pharm[facility]patient [facility] [place] Start: 10-06-2023 Patient encounter procedure Angel Fete RPh,PharmD Pharmacy [facility]patient [facility] [place] Start: 09-29-2023 ambulatory ZULY AICHHOLZ Facility: [facility] Start: 09-23-2023 ambulatory ZULY AICHHOLZ Facility: [facility] Start: 09-15-2023 ambulatory ZULY AICHHOLZ Facility: [facility] Start: 08-28-2023 End: 09-11-2023 Evaluation and management of inpatient Steve Latham MBBS Work Phone: [facility] Start: 08-28-2023 End: 08-28-2023 Office outpatient visit 25 minutes Steve Latham MBBS Work Phone: [facility] Comment on above: Immunosuppressed sta tus (Primary Dx); Kidney replaced by transplant; Aftercare following organ transplant; High risk medication use; Other general symptoms and signs; Abnormal blood chemistry; Hypertension secondary to other renal disorders Start: 08-28-2023 ambulatory STEVE LATHAM Facility:[facility] Start: 08-19-2023 ambulatory Meka rueda [facility] Pharmacy Outpatient [facility] [place] Start: 08-19-2023 Patient encounter procedure Meka Munoz [facility] [place] Start: 06-12-2023 End: 06-12-2023 Office outpatient visit 25 minutes Steve Latham MBBS Work Phone: [facility] Comment on above: 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) Start: 06-10-2023 ambulatory Maren Bar RPh,PharmD Pharm[facility]patient [facility] [place] Start: 06-10-2023 Patient encounter procedure Maren Dipika RPh,PharmD [facility] [place] Start: 04-28-2023 End: 04-29-[address] DOCTOR EVANS Facility:[facility] Start: 03-12-2023 ambulatory Angel Fete RPh,PharmD Pharmacy [facility]patient [facility] [place] Start: 03-12-2023 Patient encounter procedure Angel Fete RPh,PharmD Pharm[facility] [place] Start: 03-10-2023 ambulatory Angel Fete RPh,PharmD Pharm[facility] [place] Start: 03-10-2023 Patient encounter procedure Angel Fete RPh,PharmD [facility] [place] Start: 03-02-2023 End: 03-03-[address] DOCTOR EVANS Facility:[facility] Start: 01-16-2023 End: 01-16-2023 Office outpatient visit 25 minutes Daisha Max DO Work Phone: [facility] Comment on above: Abnormal blood chemi [...] MD Work Phone: [facility] Comment on above: BPH with obstruction /lower urinary tract symptoms (Primary Dx); Encounter for screening for malignant neoplasm of prostate Start: 08-28-2022 End: 08-29-2022 ambulatory ROB BRUNO Facility:[facility] Start: 08-14-2022 End: 08-15-[address] DOCTOR EVANS Facility:[facility] Start: 07-07-2022 End: 07-07-2022 Patient encounter procedure Ryan Yepez MD Work Phone: [facility] Comment on above: Other hydronephrosis (Primary Dx); [...] MD Work Phone: [facility] Comment on above: Other hydronephrosis (Primary Dx) [...] Phone: [facility] Comment on above: Immunosuppressed sta tus [...] Start: 03-14-2022 ambulatory Comfort Rivera [facility] Work Phone: Pharm[facility]patient [facility] [place] Start: 03-14-2022 Patient encounter procedure Comfort Rivera [facility] Work Phone: Pharm[facility]patient [facility] [place] Start: 06-14-2021 End: 06-14-2021 ambulatory Comfort Rivera [facility] Work Phone: [facility] [place] Start: 06-14-2021 Patient encounter procedure Comfort Rivera [facility] Work Phone: [facility] Start: 01-20-2020 End: 01-27-2020 Patient encounter procedure PEPE CASE Facility:[facility] Start: 01-06-2020 End: 01-07-2020 Patient encounter procedure RENA GUDINO [facility] Start: 01-06-2020 End: 01-06-2020 Subsequent hospital visit by physician [facility] Start: 10-24-2019 End: 10-25-2019 Patient encounter procedure TANA CAMPA [facility] Start: 10-24-2019 End: 10-24-2019 Subsequent hospital visit by physician [facility] Start: 08-27-2019 End: 08-28-2019 [facility] Start: 08-27-2019 End: 08-27-2019 Subsequent hospital visit by physician [facility] Start: 08-08-2019 End: 08-09-2019 [facility] Start: 08-08-2019 End: 08-08-2019 Subsequent hospital visit by physician [facility] Start: 08-03-2019 End: 08-04-2019 Patient encounter procedure ROB PATINO [facility] Start: 08-03-2019 End: 08-03-2019 Subsequent hospital visit by physician [facility] Start: 08-01-2019 End: 08-02-2019 Patient encounter procedure ROBAmber PATINO [facility] Start: 08-01-2019 End: 08-01-2019 Subsequent hospital visit by physician [facility] Start: 06-10-2019 End: 06-11-2019 Patient [facility] Start: 06-01-2019 End: 06-02-2019 Patient [facility] Start: 01-14-2019 End: 01-15-2019 Patient encounter [facility] Start: 11-17-2018 End: 11-17-2018 Patient encounter procedure Fidelina Pierson [facility] Pre Transplant Office Comment on above: Social Work Follow-u p Start: 10-19-2018 End: 10-19-2018 Patient encounter Autumn Rooney [facility] Pre Transplant Office Comment on above: [...] End: 10-13-2018 Patient encounter procedure Autumn Rooney [facility] Pre Transplant Office Comment on above: Reschedule Outside Medical Allan rds Request Start: 10-12-2018 End: 10-12-2018 Patient encounter procedure Sophie Singerhaja [facility] Pre Transplant Office Comment on above: Alcoholic cirrhosis, unspecified whether ascites present (Primary Dx); Pre-transplant evaluation for liver transplant Start: 10-12-2018 End: 10-12-2018 Office outpatient new 60 minutes Daxjorgematthew Restrepo Work Phone: [facility] Pre Transplant Office Comment on above: Alcoholic cirrhosis, unspecified whether ascites present; ESRD (end stage renal disease) on dialysis; Pre-transplant evaluation for liver transplant Start: 10-06-2018 End: 10-06-2018 Patient encounter procedure Yovani Orr Work Phone: Department of Radiology Comment on above: Canceled (Insurance Company Redirected Pt) Start: 10-05-2018 Patient encounter status Comfort Rivera [facility] Work Phone: [facility] Procedures Date Procedure Procedure Detail Performing Clinician [...] MD Work Phone: Start: 01-22-2024 Antibody screen STEVE NO RI Comment on above: Performed By: #### X M ####[facility] (DEFAULT)[address] [place] [id number] Start: 01-22-2024 Assay of magnesium Just in [...] ITRACONAZOLE LEVEL Jennifer norbert Alarcon [facility] Work Phone: Start: 01-20-2024 Oscillating positive [...] 01-19-2024 Iadna nos quantifica tion each organism Fdielina Ortiz Dorian [facility] Work Phone: Start: 01-18-2024 Echocardiography STEVE N [...] AURIS SCREEN BY PCR Carol Ann Capps STUDY LEAD-METAL FABRICATOR HELPER Work Phone: Start: 01-08-2024 ALL CBC WITH [...] Evan Kelly MD Work Phone: Start: 09-02-2023 [facility] dnce dx w/cell washg [...] AURIS SCREEN BY PCR Carol Ann Capps STUDY LEAD-METAL FABRICATOR HELPER Work Phone: Start: 08-28-2023 CBC AND [...] Performed By: #### C MP #### [facility] [address] [place] [address] Dr. Dwight Waters Start: 07-07-2022 Rmvl nfros tube req fluoro guidance Ryan Yepez MD Work Phone: Start: 06-27-2022 Ct abdomen & pelvis w/o contrast material Evan Byrd MD Work Phone: Start: 06-12-2022 Culture bct isol&prs mptv id isolate ea urine Stevemassiel Farrari MBBS Work Phone: Start: 06-12-2022 EXTRA [...] liver trans plant Comfort Rivera [facility] Work Phone: Start: 04-08-2020 H/O: liver recipient Liver tra nsplant recipient Comfort Rivera [facility] Work Phone: Start: 01-06-2020 Potassium serum [...] kidney transplant recipient Comfort Rivera [facility] Work Phone: Start: 06-10-2019 HEMOGLOBIN AND HEMAT OCRIT, BLOOD ROB KASMANI Start: 06-01-2019 Blood count hemoglobin ROB KASMANI Start: 03-22-2019 Lipid 1996 panel - S fabricio or Plasma Comfort Rivera [facility] Work Phone: Start: 01-14-2019 Potassium serum [...] 10-12-2018 End: 10-12-2018 Calcium total Yovani Mejias [employer] Work Phone: Start: 10-12-2018 End: 10-12-2018 CBC, EDIF, PLATELET Yovani [employer] Work Phone: Start: 10-12-2018 End: 10-12-2018 Creatinine blood Yovani Mejias [employer] Work Phone: Start: 10-12-2018 End: 10-12-2018 Drug screening cannabinoids natural Yovani Mejias [employer] Work Phone: Start: 10-12-2018 End: 10-12-2018 Hepatitis a antibody haab Yovani Mejias [employer] Work Phone: Start: 10-12-2018 End: 10-12-2018 Hepatitis b core antibody hbcab total Yovani Mejias [employer] Work Phone: Start: 10-12-2018 End: 10-12-2018 Hepatitis b surf antibody hbsab Yovani Mejias [employer] Work Phone: Start: 10-12-2018 End: 10-12-2018 Hepatitis c antibody Yovani Mejias [employer] Work Phone: Start: 10-12-2018 End: 10-12-2018 Iaad ia hepatitis b surface antigen Yovani Mejias [employer] Work Phone: Start: 10-12-2018 End: 10-12-2018 Iaad ia hiv-1 ag w/hiv-1 & hiv-2 antbdy single Yovani Mejias [employer] Work Phone: Start: 10-12-2018 End: 10-12-2018 PSA screening Yovani Mejias [employer] Work Phone: Start: 10-12-2018 End: 10-12-2018 Thromboplastin time partial plasma/whole blood Yovani Mejias [employer] Work Phone: Start: 10-12-2018 End: 10-12-2018 Assay of ethanol Yovani Mejias [employer] Work Phone: Start: 10-12-2018 End: 10-12-2018 Drug/substance [...] Kidn ey replaced by transplant Rebeca Gutierrez STUDY LEAD-MAINTENANCE LEADER Work Phone: Plan of Treatment Date Care Activity Detail Author Start: 09-20-2029 Screening for malignant neoplasm of colon [facility] Start: 06-20-2025 Potassium [Moles/volume] in Serum or Plasma POTASSIUM [facility] Start: 06-16-2025 End: 06-16-2025 Patient encounter procedure [facility] Start: 06-13-2025 Potassium [Moles/volume] in Serum or Plasma POTASSIUM [facility] Start: 05-23-2025 Potassium [Moles/volume] in Serum or Plasma POTASSIUM [facility] Start: 03-28-2025 Potassium [Moles/volume] in Serum or Plasma POTASSIUM [facility] Start: 03-21-2025 Potassium [Moles/volume] in Serum or Plasma POTASSIUM [facility] Start: 02-28-2025 Potassium [Moles/volume] in Serum or Plasma POTASSIUM [facility] Start: 01-23-2025 Potassium [Moles/volume] in Serum or Plasma POTASSIUM [facility] Start: 09-07-2024 End: 09-07-2024 Telemedicine consultation with patient 09/07/2024 3:00 PM EDT Telemedicine Infectious Diseases [facility] [address] [place] [id number] Evan White DO [address] [place] [address] [facility] Start: 08-31-2024 Screening for malignant neoplasm of lung [facility] Start: 07-31-2024 Influenza vaccination INFLUENZA VACCINE (#1) [facility] Start: 06-17-2024 End: 06-17-2024 ambulatory [facility] Start: 06-17-2024 End: 06-17-2024 Patient encounter procedure [facility] Start: 03-22-2024 Fasting lipid profile LIPID SCREENING [facility] Start: 03-22-2024 Lipid panel [facility] Start: 02-26-2024 End: 02-26-2024 Patient encounter procedure 02/26/2024 9:30 AM EDT Office Visit Medical [facility] [address] [place] [phone] Candie Almaguer MD [address] [place] [address] Medical Reviewer [facility] Start: 02-11-2024 End: 02-11-2024 Patient encounter procedure 02/11/2024 10:30 AM EDT Office Visit [facility] [address] [place] [address] Zuly Bruno, BA [address] [place] [phone] [facility] Start: 02-09-2024 End: 02-09-2024 Telemedicine consultation with patient 02/09/2024 3:30 PM EDT Telemedicine Infect[facility] [address] [facility] [address] [place] [phone] Hakeem Alamo MD [address] [facility] [address] [place] [address] [facility] Start: 01-15-2024 End: 01-15-2024 ambulatory [facility] Start: 01-15-2024 End: 01-15-2024 Patient encounter procedure [facility] Start: 01-06-2024 End: 01-06-2026 Echocardiogram 2D complete Echocardiogram 2D complete Echocardiography Routine DARLENE (obstructive sleep apnea) Primary hypertension (CMS/HCC) Bilateral lower extremity edema Shortness of breath Expected: 01/06/2024 (Approximate), Expires: 01/06/2026 [facility] Work Phone: Comment on above: Expected: 01/06/2024 (Approximate), Expi res: 01/06/2026 Start: 01-06-2024 End: 01-06-2024 Patient encounter procedure 01/06/2024 9:00 AM EST Office Visit [facility] [address] [place] [address] Zuly Bruno, BA [address] [place] [phone] [facility] Start: 12-08-2023 End: 09-07-2024 CT Chest WO contrast [facility] Work Phone: Start: 12-01-2023 COVID-19 VACCINE (2 - Moderna risk series) COVID-19 VACCINE (2 - Moderna risk series) [facility] Start: 09-23-2023 End: 09-23-2023 amb[address] [facility] Start: 09-23-2023 End: 09-23-2023 Telemedicine consultation with patient 09/23/2023 4:00 PM EDT Telemedicine Infectious [facility] [address] [place] [address] Hakeem Alamo MD [address] [facility] [address] [place] [address] [facility] Start: 09-15-2023 End: 09-10-2024 ITRACONAZOLE LEVEL [facility] Start: 08-25-2023 End: 08-25-2024 ALLOSCREEN RECIPIENT (POST TX PRA) ALLOSCREEN RECIPIENT (POST TX PRA) Lab Routine Kidney replaced by transplant Aftercare following organ transplant Immunosuppressed status High risk medication use Other general symptoms and signs Abnormal blood chemistry Expected: 08/25/2023, Expires: 08/25/2024 [facility] Comment on above: Expected: 08/25/2023, Expires: Start: 07-31-2023 Influenza vaccination [facility] Start: 06-12-2023 End: 06-12-2023 Patient encounter procedure 06/12/2023 Office Visit Transplant Surgery Steve Latham MBBS [address] [place] [address] [facility] Start: 03-11-2023 End: 03-11-2023 Telemedicine consultation with patient 03/11/2023 Telemedicine Urology Ryan Yepez MD [address] [facility] [address] [place] [address] [facility] Start: 01-16-2023 End: 01-16-2023 Patient encounter procedure 01/16/2023 Office Visit Transplant Surgery [facility] Start: 10-31-2022 End: 10-31-2022 Patient encounter procedure 10/31/2022 Office Visit Transplant Surgery Steve Latham, LU [address] [place] [address] [facility] Start: 09-10-2022 End: 09-10-2023 PSA screening PSA, SCREENING Lab Routine BPH with obstruction/lower urinary tract symptoms Encounter for screening for malignant neoplasm of prostate Expected: 09/10/2022 (Approximate), Expires: 09/10/2023 [facility] Comment on above: Expected: 09/10/2022 (Approximate), Expi res: 09/10/2023 Start: 08-11-2022 End: 08-11-2022 Patient encounter procedure 08/11/2022 Office Visit Urology Ryan Yepez MD [address] [facility] [address] [place] [address] Urology [facility] Start: 07-31-2022 Influenza vaccination [facility] Start: 07-07-2022 End: 07-07-2022 Patient encounter procedure 07/07/2022 Office Visit Urology Ryan Yepez MD [address] [facility] [address] [place] [address] [facility] Start: 07-07-2022 End: 07-07-2023 FLUORO IMAGING FOR UROLOGY [facility] Comment on above: Expected: 07/07/2022, Expires: 3 1 Occurrences starti ng 07/07/2022 until 07/07/2022 Start: 06-27-2022 End: 06-27-2022 Patient encounter procedure 06/27/2022 Office Visit Urology Ryan Yepez MD [address] [facility] [address] [place] [address] [facility] Start: 06-27-2022 End: 06-27-2023 Basic metabolic 2000 panel - Serum or Plasma BASIC METABOLIC PANEL Lab Routine Other hydronephrosis Expected: 06/27/2022, Expires: 06/27/2023 [facility] Comment on above: Expected: 06/27/2022, Expires: Start: 06-27-2022 End: 06-27-2022 Patient encounter procedure 06/27/2022 Appointment Computerized Tomography Scan Ryan Yepez MD [address] [facility] [address] [place] [address] Department of Radiology Start: 06-15-2022 End: 05-16-2023 CT Abdomen and Pelvis WO contrast CT ABDOMEN/PELVIS WITHOUT CONTRAST Imaging Routine FAYE (acute kidney injury) Expected: 06/15/2022 (Approximate), Expires: 05/16/2023 [facility] Work Phone: Comment on above: Expected: 06/15/2022 (Approximate), Expi res: 05/16/2023 Start: 06-12-2022 End: 06-12-2022 Patient encounter procedure 06/12/2022 Office Visit Transplant Surgery Steve Latham, LU [address] [place] [address] [facility] Start: 06-11-2022 End: 06-11-2023 BK VIRUS DNA QN, PCR, PLASMA BK VIRUS DNA QN, PCR, PLASMA Lab Routine Kidney replaced by transplant Liver replaced by transplant Abnormal blood chemistry Expected: 06/11/2022, Expires: 06/11/2023 [facility] Comment on above: Expected: 06/11/2022, Expires: 3 Start: 06-04-2022 End: 06-04-2022 Patient encounter procedure 06/04/2022 Office Visit [facility]ventional [facility]iology [facility] Start: 10-18-2021 End: 10-18-2021 Patient encounter procedure 10/18/2021 Office Visit Transplant Surgery Steve Latham, MBBS [address] [place] [phone] [facility] Start: 07-31-2021 Influenza vaccination INFLUENZA VACCINE (#1) [facility] Start: 07-26-2021 End: 07-26-2021 Patient encounter procedure 07/26/2021 Office Visit Transplant Surgery [facility] Start: 2021 Prostate specific antigen measurement [facility] Start: 2021 Screening for malignant neoplasm of lung LUNG CANCER SCREENING [facility] Start: 2021 Zoster vaccine hzv live for subcutaneous use ZOSTER (SHINGLES) VACCINE (1 of 2) [facility] Start: 09-20-2020 Colonoscopy COLORECTAL CANCER SCREENING DISCUSSION [facility] Start: 09-20-2020 Screening for malignant neoplasm of colon [facility] Start: 07-31-2019 Influenza vaccination Flu vaccine (#1) [place] Start: 05-22-2019 Annual Wellness Visit (AWV) Annual Wellness Visit (AWV) [place] Start: 04-18-2019 End: 10-19-2019 Ultrasonography of abdomen US ABDOMEN RUQ/LIVER/GB Routine Cirrhosis of liver without ascites, unspecified hepatic cirrhosis type Expected: 04/18/2019 (Approximate), Expires: 10/19/2019 [facility] Work Phone: Comment on above: Expected: 04/18/2019 (Approximate), Expi res: 10/19/2019 Start: 01-25-2019 End: 01-25-2019 Ambulatory 01/25/2019 Office Visit Gastroenterology Christin Elizabeth, STUDY LEAD-MAINTENANCE LEADER [address] [place] [id number] Division of Gastroenterology and Hepatology Gavin Start: 11-19-2018 End: 11-19-2018 Ambulatory 11/19/2018 Appointment Pulmonary Diagnostics [facility] Lab Start: 11-19-2018 End: 11-19-2018 Ambulatory [facility] Start: 10-19-2018 End: 10-19-2018 Ambulatory Ultrasound Jakob Start: 10-12-2018 End: 10-12-2019 Hemoglobin A1c/Hemoglobin.total mass fraction (Bld) HEMOGLOBIN A1C Routine Alcoholic cirrhosis, unspecified whether ascites present Pre-transplant evaluation for liver transplant Expected: 10/12/2018, Expires: 10/12/2019 [facility] Work Phone: Comment on above: Expected: 10/12/2018, Expires: 9 Start: 10-12-2018 End: 10-12-2019 TYPE AND SCREEN - NOT FOR TRANSFUSION TYPE AND SCREEN - NOT FOR TRANSFUSION Routine Alcoholic cirrhosis, unspecified whether ascites present Pre-transplant evaluation for liver transplant Expected: 10/12/2018, Expires: 10/12/2019 [facility] Work Phone: Comment on above: Expected: 10/12/2018, Expires: 9 Start: 07-31-2018 Influenza vaccination INFLUENZA VACCINE (#1) [facility] Work Phone: Start: 2011 Fasting lipid profile LIPID SCREENING [facility] Work Phone: Start: 2011 Lipid screen Lipid screen [place], [place] Start: 1990 DTaP/Tdap/Td vaccine (1 - Tdap) DTaP/Tdap/Td vaccine (1 - Tdap) [place] Start: 1990 Hepatitis B vaccination HEP B VACCINE (1 of 3 - 19+ 3-dose series) [facility] Start: 1990 Hepatitis B Vaccine (1 of 3 - Risk Recombivax 3-dose series) Hepatitis B Vaccine (1 of 3 - Risk Recombivax 3-dose series) [place] Start: 1990 Third diphtheria, tetanus and acellular pertussis (DTaP) vaccination [facility] Start: 1990 Zoster vaccine hzv live for subcutaneous use ZOSTER (SHINGLES) VACCINE (1 of 2) [facility] Start: 1990 [facility] Start: 1989 Tetanus vaccination TETANUS [facility] Start: 1986 HIV screen HIV screen [place] Start: 02-17-1984 HIV screening HIV SCREENING DISCUSSION [facility] Work Phone: Start: 1983 COVID-19 VACCINE (1) COVID-19 VACCINE (1) [facility] Start: 1982 DTaP/Tdap/Td vaccine (1 - Tdap) DTaP/Tdap/Td vaccine (1 - Tdap) [place] Start: 1977 Pneumococcal 0-64 years Vaccine (1 of 3 - PCV13) Pneumococcal 0-64 years Vaccine (1 of 3 - PCV13) [place] Start: 1977 PNEUMOCOCCAL VACCINE SERIES (1 - PCV) PNEUMOCOCCAL VACCINE SERIES (1 - PCV) [facility] Start: 1977 PNEUMOCOCCAL VACCINE SERIES (1 of 2 - PCV) PNEUMOCOCCAL VACCINE SERIES (1 of 2 - PCV) [facility] Start: 1977 [facility] Start: 02-17-1976 COVID-19 VACCINE (#1) COVID-19 VACCINE (#1) [facility] Start: 02-17-1976 [facility] Start: 1971 COVID-19 VACCINE (#1) COVID-19 VACCINE (#1) [facility] Start: 1971 Hepatitis B vaccination HEP B VACCINE (1 of 3 - 3-dose series) [facility] Start: 1971 Medicare Annual Wellness (AWV) Medicare Annual Wellness (AWV) [facility] Start: 1971 Screening for malignant neoplasm of colon [facility] Start: 1971 Tetanus vaccination [facility] BK VIRUS DNA QN, PCR , PLASMA BK VIRUS DNA QN, PCR, PLASMA Lab Routine Kidney replaced by transplant Liver replaced by transplant Abnormal blood chemistry 06/12/2022 3:38 PM EDT [facility] CALCULI, URINARY (KIDNEY STONE) CALCULI, URINARY (KIDNEY STONE) Fluids Routine 05/19/2022 8:16 AM EDT [facility] Work Phone: CANNABINOIDS, QUANT (URINE)THC CONFIRMATION CANNABINOIDS, QUANT (URINE)THC CONFIRMATION Routine Alcoholic cirrhosis, unspecified whether ascites present ESRD (end stage renal disease) on dialysis Pre-transplant evaluation for liver transplant 10/12/2018 12:[address] [facility] Work Phone: End: 09-10-2024 CHEM 6 (LYTES, BUN CREA) [facility] EBV VCA IGG AB EBV VCA IGG AB R outine Alcoholic cirrhosis, unspecified whether ascites present ESRD (end stage renal disease) on dialysis Pre-transplant evaluation for liver transplant 10/12/2018 12:[address] [facility] Work Phone: Fungus identified in Unspecified specimen by Culture [facility] HLA TYPING (SOLID ORGAN) HLA TYPING (SOLID ORGAN) Routine Alcoholic cirrhosis, unspecified whether ascites present ESRD (end stage renal disease) on dialysis Pre-transplant evaluation for liver transplant 10/12/2018 12:[address] [facility] Work Phone: HSV 1 AND 2 IGG ANTIBODY HSV 1 AND 2 IGG ANTIBODY Routine Alcoholic cirrhosis, unspecified whether ascites present ESRD (end stage renal disease) on dialysis Pre-transplant evaluation for liver transplant 10/12/2018 12:[address] [facility] Work Phone: MR Abdomen WO and W contrast IV MRI ABDOMEN WITH AND WITHOUT CONTRAST Imaging Routine Liver lesion Ordered: 06/17/2024 [facility] Comment on above: Ordered: 06/17/2024 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 specific culture [facility] PLACEMENT NEPHROSTOM Y CATHETER PERCUTANEOUS W/ IMAGE GUIDANCE PLACEMENT NEPHROSTOMY CATHETER PERCUTANEOUS W/ IMAGE GUIDANCE Imaging Routine Hydronephrosis due to obstruction of ureteral orifice FAYE (acute kidney injury) 05/17/2022 11:08 AM EDT [facility] NC POST VOID RESIDUAL NC POST VO ID RESIDUAL NC - OFFICE PERFORMED Routine BPH with obstruction/lower urinary tract symptoms Ordered: 09/10/2022 [facility] Comment on above: Ordered: 09/10/2022 PTH INTACT PTH INTACT Routi ne Alcoholic cirrhosis, unspecified whether ascites present ESRD (end stage renal disease) on dialysis Pre-transplant evaluation for liver transplant 10/12/2018 12:[address] [facility] Work Phone: RUBEOLA IGG AB (IMMU NE STATUS) RUBEOLA IGG AB (IMMUNE STATUS) Routine Alcoholic cirrhosis, unspecified whether ascites present ESRD (end stage renal disease) on dialysis Pre-transplant evaluation for liver transplant 10/12/2018 12:[address] [facility] Work Phone: End: 01-16-2024 Standard ECG ECG ECG Routine One Time for 1 Occurrences starting 01/16/2024 until 01/16/2024 [facility] Comment on above: One Time for 1 Occurrences starting 12/31 until 01/16/2024 End: 09-10-2024 TACROLIMUS LEVEL, TROUGH (PRE DRUG LEVEL) [facility] VARICELLA IGG AB (IM M STATUS) VARICELLA IGG AB (IMM STATUS) Routine Alcoholic cirrhosis, unspecified whether ascites present ESRD (end stage renal disease) on dialysis Pre-transplant evaluation for liver transplant 10/12/2018 12:[address] [facility] Work Phone: Immunizations Immunization Date Immunization Notes Care Provider Zeeshan yi 11-03-2023 influenza virus vacc ine, unspecified formulation Generic Provider [facility] 11-03-2023 Moderna SARS-CoV-2 50mcg/0.5mL Booster Generic Provider [facility] Payers Date Payer Category Payer Unknown [id number] 2019 Unknown [facility] [id number] 2019-Present [id number] 2018 Medicaid MEDICAID [facility] DEPT OF JOB xxxxxxxxxxxx 2018-Present [phone] [address] [place] [address] xxxxxxxxxxxx [id number] [id number] 2018 Medicaid MEDICAID MEDICAI D [id number] 2018-Present [address] [place] [address] [id number] .[id number] 2018 Medicaid [id number] [id number] .[id number] 2018 Medicare MEDICARE MEDICAR E PART A AND B xxxxxxxxxxx 2018-Present [phone] [address] [address] [place] [address] xxxxxxxxxxx [id number] .[id number] 2018 Medicare [id number] 2018 Medicare MEDICARE MEDICAR E A AND B [id number] 2018-Present [address] [place] [address] [id number] .[id number] 2018 Medicare [id number]. 1.13.172.2.7.3 .594390.315 1971 Unknown [id number] 2.16.840.1.541939.3.579.2.173 1971 Unknown [id number] 2.16.840.1.581750.3.579.2.173 1971 Unknown [id number] 2.16.840.1.160088.3.579.2.173 1971 Unknown [id number] 2.16.840.1.768699.3.579.2.173 1971 Unknown [id number] 2.16.840.1.061819.3.579.2.173 1971 Unknown [id number] 2.16.840.1.653206.3.579.2.173 1971 Unknown [id number] 2.16.840.1.417186.3.579.2.173 1971 Unknown [id number] 2.16.840.1.729009.3.579.2.173 1971 Unknown [id number] 2.16.840.1.166388.3.579.2.647 1971 Unknown [id number] 2.16.840.1.283025.3.579.2.593 1971 Unknown [id number] 2.16.840.1.012718.3.579.2.593 1971 Unknown [id number] 2.16.840.1.347524.3.579.2.593 1971 Unknown [id number] 2.16.840.1.418542.3.579.2.593 1971 Unknown [id number] 2.16.840.1.610721.3.579.2.593 1971 Unknown [id number] 2.16.840.1.662208.3.579.2.593 1971 Unknown [id number] 2.16.840.1.792823.3.579.2.593 1971 Unknown [id number] 2.16.840.1.951985.3.579.2.593 1971 Unknown [id number] 2.16.840.1.397937.3.579.2.593 1971 Unknown [id number] 2.16.840.1.195055.3.579.2.593 1971 Unknown [id number] 2.16.840.1.958373.3.579.2.593 1971 Unknown [id number] 2.16.840.1.809192.3.579.2.593 1971 Unknown [id number] 2.16.840.1.321669.3.579.2.593 1971 Unknown [id number] 2.16.840.1.774901.3.579.2.593 1971 Unknown [id number] 2.16.840.1.703774.3.579.2.593 1971 Unknown [id number] 2.16.840.1.637052.3.579.2.125 9 1971 Unknown [id number] 2.16.840.1.706915.3.579.2.125 9 1971 Unknown [id number] 2.16.840.1.552695.3.579.2.125 9 1971 Unknown [id number] 2.16.840.1.420375.3.579.2.125 9 1971 Unknown [id number] 2.16.840.1.576252.3.579.2.125 9 1971 Unknown [id number] 2.16.840.1.460247.3.579.2.125 9 1971 Unknown [id number] 2.16.840.1.072082.3.579.2.125 9 1971 Unknown [id number] 2.16.840.1.438162.3.579.2.125 9 1971 Unknown [id number] 2.16.840.1.757940.3.579.2.125 9 1971 Unknown [id number] 2.16.840.1.068451.3.579.2.125 9 1971 Unknown [id number] 2.16.840.1.508632.3.579.2.125 9 1971 Unknown [id number] 2.16.840.1.692506.3.579.2.125 9 1971 Unknown [id number] 2.16.840.1.347587.3.579.2.125 9 1971 Unknown [id number] 2.16.840.1.729941.3.579.2.125 9 1971 Unknown [id number] 2.16.840.1.948501.3.579.2.594 1971 Unknown [id number] 2.16840.1.286013.3.579.2.594 1971 Unknown [id number] 2.16.840.1.234990.3.579.2.594 1971 Unknown [id number] 2.16840.1.696867.3.579.2.594 1971 Unknown [id number] 2.16.840.1.087096.3.579.2.594 1971 Unknown [id number] 2.16840.1.536495.3.579.2.594 1971 Unknown [id number] 2.16.840.1.411962.3.579.2.594 1971 Unknown [id number] 2.16840.1.674963.3.579.2.594 1971 Unknown [id number] 2.16.840.1.417514.3.579.2.594 1971 Unknown [id number] 2.16840.1.145245.3.579.2.594 1971 Unknown [id number] 2.16.840.1.665472.3.579.2.594 1971 Unknown [id number] 2.16840.1.775014.3.579.2.594 1959 Medicaid [id number] 1959 Medicare [id number] Social History Date Type Detail Facility Start: 07-19-2018 End: 10-19-2018 Tobacco smoking status NHIS Former smoker [facility] Start: 07-19-1988 End: 05-14-2018 History of tobacco use Current smoker [facility] Work Phone: Start: 07-19-1988 End: 05-14-2018 History of tobacco use Cigarette Smoker [facility] Work Phone: Start: 10-19-2018 End: 06-17-2024 Cigarettes smoked current (pack per day) - Reported [facility] End: 07-19-1994 History of tobacco use Chews Tobacco [facility] Work Phone: Start: 1970 Sex Assigned At Not on file [facility] Work Phone: Start: 11-03-2018 Alcohol intake Current non-drinker of alcohol (finding) [place] Start: 06-22-2018 Alcohol Comment Hx of alcoholism [place] Start: 11-03-2018 End: 06-17-2024 Alcohol intake No [facility] Start: 07-19-2018 Tobacco use and exposure Former user [facility] Start: 09-06-2020 End: 06-17-2024 Alcohol intake Ex-drinker (finding) [facility] Start: 07-19-2018 Alcohol Comment stopped 05/14/2018 [facility] Start: 05-05-2022 End: 01-16-2023 Exposure to SARS-CoV-2 (event) Not sure [facility] Start: 07-07-2018 Gender identity Identifies as male gender (finding) [facility] Start: 01-16-2022 Sexual orientation Heterosexual (finding) [facility] Start: 11-03-2023 Tobacco use and exposure [...] Dates [id number] Start: 05-23-2020 [id number] Start: 04-12-2020 [id number] FDA Start: 05-17-2022 Comment on above: Description: Implant time-out completed by intra-procedural staff including this RN, robotic technician, and performing physician. The following was completed. RN reads out loud implant type/size/ expiration date, and verbalizes location. Holds package up to tech to visually verify implant details. Tech reads back package details MD verifies verbally correct implant Time-out was completed for each coil during embolization, if applicable. Goals Date Patient Goal Desired Activity /State Personal health goal Clinical Notes 06-14-2021 to 06-23-2024 Starla Edwards - 06/23/2024 8:51 AM Hannah Max DO - 06/17/2024 10:00 AM Jasper Garnica RN - 06/17/2024 10:00 AM Jesus Manuel Fair RN - 06/17/2024 10:00 AM EDTPatient Instructions Note Date & Type Note Facility 06-23-2024 History of Present illness Narrative [facility]: Call Information: Date and Time of Contact: 06/23/2024 8:52 AM Method of Contact: By Phone Contact Type: Prescriptions Contactor: [facility] Contactee: Patient Shipping/Pickup: Medicare B Refill?: No Medication Name: Prograf 0.2mg Delivery Method: Ship Delivery Location: Home Signature Required: No Receive/Pickup Date: 06/29/2024 Shipping Address: [address] [place] [address] [address] Contact Info: Specialty ([place]) [phone] Jakob [phone] [facility] [phone] David [phone] Bedside Delivery ([facility]) [phone] documented in this encounter [facility] 06-17-2024 History of Present illness Narrative -Referring [...] Left; Surgeon: Jyoti Bryant MD, PhD; Location: [facility] MAIN OR PLACEMENT NEPHROSTOMY CATHETER PERCUTANEOUS W/ IMAGE GUIDANCE 05/17/2022 Surgeon: Enzo Heart DO; [facility] INTERVENTIONAL RADIOLOGY (VIR) LIVER TRANSPLANT, ORTHOTOPIC N/A 04/12/2020 Laterality: N/A; Surgeon: LU Palma; Location: [facility] SAME DAY SURGERY MAIN OR KIDNEY TRANSPLANT W/O [place] NEPHRECTOMY N/A 04/12/2020 Laterality: N/A; Surgeon: LU Palma; Location: [facility] SAME DAY SURGERY MAIN OR OTHER [...] Insomnia. Mycophenolate sodium (MYFORTIC) [address] Take 1 tablet by mouth [...] 0.2 06/13/2024 Explant Pathology Pathologic Diagnosis A. [place] liver, orthotopic liver transplant resection (1458 gram): [...] up in 1 year. Daisha Max DO Welding Equipment Repairer Gastroenterology, Hepatology and Nutrition [facility] Pager: [phone] Images from the original note were not included. 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 Supervisor Dry Paste: Anayeli Burt Date of Liver Transplant: 04/13/2020 (Kidney), 04/13/2020 (Liver) 4 years, 2 months post Liver/Kidney Transplant Primary Disease: Hypertensive Nephrosclerosis Transplant Insulation Estimator: Erma Roe/ Daisha Max Primary Care physician: [...] no Is patient employed: no (Needed for [employer] forms) VITALS BP Readings from Last 3 [...] LAB AND PHARMACY: None Specified [id number] [place] [address] - [address] [facility] [address] [facility] [address] [facility] [address], [address] [facility] [address] [id number] [place] [address] [address] [facility] [address] [facility] [address] [facility] Jakob [address], [address] [place] [address] ROS and SCREEN: Chest Pain: negative Cough: [...] no Do you follow with a Car Wiper? yes Do you have a Primary Care [...] PHYSICIAN: documented in this encounter [facility] 06-17-2024 Instructions Ashlee Fair RN - 06/17/2024 10:00 AM EDT - No medication changes from a liver standpoint - A MRI Abdomen has been ordered today. Please call central scheduling at [phone] to schedule or take paper copy to your local hospital - Return to clinic 06/16/2025 TRANSPLANT HEPATOLOGY 3, [facility] as scheduled documented in this encounter [facility] 06-17-2024 History of Present illness Narrative Images from the original note were not included. George Styles is a 54 y.o. 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 History of Present Illness: Since George was [...] and lab results. Rebeca Gutierrez MSN, RN, STUDY LEAD-BC, CCTN Certified Nurse Practitioner [facility] [address] [facility] [address] documented in this encounter [facility] 06-17-2024 Instructions JEANNA Hess - 06/17/2024 9:30 AM EDT Tacrolimus - increase to 0.2 mg packet three time per day; goal 3 to 5 ng/dL ; when the itraconazole stops 09/03/2024, reduce to 0.5 mg twice daily. Once your tacrolimus level is 3-5 ng/dL, you may reduce labs to every other week. documented in this encounter [facility] 05-26-2024 History of Present illness Narrative [facility]: Call Information: Date and Time of Contact: 05/26/2024 4:35 PM Method of Contact: By Phone Contact Type: Prescriptions Contactor: [facility] Contactee: Patient Contact Outcome: Left message and Follow-up Contact Info: Specialty ([place]) [phone] [facility] [phone] [facility] [phone] David [phone] Bedside Delivery ([facility]) [phone] [facility]: Call Information: Date and Time of Contact: 05/30/2024 4:52 PM Method of Contact: By Phone Contact Type: Prescriptions Contactor: Patient Contactee: [facility] Shipping/Pickup: Medicare B Refill?: No Medication Name: Myco sod 360mg, Prograf 0.2mg Delivery Method: Ship Delivery Location: Home Signature Required: No Receive/Pickup Date: 06/06/2024 Shipping Address: [address] [place] [address] Contact Info: Specialty ([place]) [phone] [facility] [phone] [facility] [phone] David [phone] Bedside Delivery ([facility]) [phone] documented in this encounter [facility] 05-13-2024 Note [facility] Subjective George Styles is a [...] , Rfl: t (more content not included)... [facility] 03-24-2024 History of Present illness Narrative [facility]: Call Information: Date and Time of Contact: 03/24/2024 4:14 PM Method of Contact: By Phone Contact Type: Prescriptions Contactor: [facility] Contactee: Patient Contact Outcome: Left message Shipping/Pickup: Medication Name: Prograf 0.2mg pack Contact Info: Specialty ([place]) [phone] [facility] [phone] [facility] [phone] David [phone] Bedside Delivery ([facility]) [phone] [facility]: Call Information: Date and Time of Contact: 03/28/2024 3:58 PM Method of Contact: By Phone Contact Type: Prescriptions Contactor: [facility] Contactee: Patient Contact Outcome: Left message and Call back later Shipping/Pickup: Medication Name: Mycophenolate, prograf Contact Info: Specialty ([place]) [phone] [facility] [phone] [facility] [phone] David [phone] Bedside Delivery ([facility]) [phone] [facility]: Call Information: Method of Contact: By Phone Contact Type: Prescriptions Contactor: Patient Contactee: [facility] Shipping/Pickup: Medicare B Refill?: No Medication Name: Mycopheolate 360mg and Prograf Delivery Method: Ship Delivery Location: Home Signature Required: No Receive/Pickup Date: 04/04/2024 Shipping Address: [address] [place] [address] [address] Contact Info: Specialty ([place]anci) [phone] [facility] [phone] [facility] [phone] David [phone] Bedside Delivery ([facility]) [phone] documented in this encounter [facility] 03-24-2024 History of Present illness Narrative [facility]: Call Information: Date and Time of Contact: 03/24/2024 4:14 PM Method of Contact: By Phone Contact Type: Prescriptions Contactor: [facility] Contactee: Patient Contact Outcome: Left message Shipping/Pickup: Medication Name: Prograf 0.2mg pack Contact Info: Specialty ([place]) [phone] [facility] [phone] [facility] [phone] David [phone] Bedside Delivery ([facility]) [phone] [facility]REACH [facility]: Call Information: Date and Time of Contact: 03/28/2024 3:58 PM Method of Contact: By Phone Contact Type: Prescriptions Contactor: [facility] Contactee: Patient Contact Outcome: Left message and Call back later Shipping/Pickup: Medication Name: Mycophenolate, prograf Contact Info: Specialty ([place]) [phone] [facility] [phone] [facility] [phone] David [phone] Bedside Delivery ([facility]) [phone] [facility]REACH [facility]: Call Information: Method of Contact: By Phone Contact Type: Prescriptions Contactor: Patient Contactee: [facility] Shipping/Pickup: Medicare B Refill?: No Medication Name: Mycopheolate 360mg and Prograf Delivery Method: Ship Delivery Location: Home Signature Required: No Receive/Pickup Date: 04/04/2024 Shipping Address: [address] [place] [address] Contact Info: Specialty ([place]) [phone] [facility] [phone] [facility] [phone] David [phone] Bedside Delivery ([facility]) [phone] [facility]REACH [facility]: Pre-Verification/Specialty Assessment/Disease [...] Within normal limits Contact Info: Specialty ([place]) [phone] Jakob [phone] [facility] [phone] David [phone] Bedside Delivery ([facility]) [phone] documented in this encounter [facility] 03-02-2024 History of Present illness Narrative [...] [place] of [place] Contact Info: Specialty ([place]) [phone] [facility] [phone] [facility] [phone] David [phone] Bedside Delivery ([facility]) [phone] [facility] OP RX OUTREACH ADVANCED: Call Information: Date and Time of Contact: 03/02/2024 3:49 PM Method of Contact: By Phone Contact Type: Prescriptions Contactor: [facility] OP Contactee: Patient Contact Outcome: Left message and Follow-up Shipping/Pickup: Medication Name: Myco 360mg and Prograf 0.2mg Contact Info: Specialty ([place]) [phone] [facility] [phone] [facility] [phone] David [phone] Bedside Delivery ([facility]) [phone] [facility] OP RX OUTREACH ADVANCED: Call Information: Date and Time of Contact: 03/02/2024 4:08 PM Method of Contact: By Phone Contact Type: Prescriptions Contactor: [facility] OP Contactee: Patient Shipping/Pickup: Medicare B Refill?: No Medication Name: Myco 360 / prograf 0.2 Delivery Method: Ship Delivery Location: Home Signature Required: No Receive/Pickup Date: 03/03/2024 Shipping Address: [address] [place] [address] 179 Contact Info: Specialty ([place]) [phone] [facility] [phone] [facility] [phone] David [phone] Bedside Delivery ([facility]) [phone] documented in this encounter [facility] 02-26-2024 History of Present illness Narrative Patient [...] presents to the HF Clinic at the [facility] on 02/26/2024 for initial evaluation of [...] Left; Surgeon: Jyoti Bryant MD, PhD; Location: [facility] MAIN OR PLACEMENT NEPHROSTOMY CATHETER PERCUTANEOUS W/ IMAGE GUIDANCE 05/17/2022 Surgeon: Enzo Heart DO; Location: [facility] INTERVENTIONAL RADIOLOGY (VIR) LIVER TRANSPLANT, ORTHOTOPIC N/A 04/12/2020 Laterality: N/A; Surgeon: LU Palma; Location: [facility] SAME DAY SURGERY MAIN OR KIDNEY TRANSPLANT W/O [place] NEPHRECTOMY N/A 04/12/2020 Laterality: N/A; Surgeon: LU Palma; Location: [facility] SAME DAY SURGERY MAIN OR OTHER [...] qd Antithrombotic: no Statin: no ICD: NA DATASTAGE CONSULTANT: NA CV Test results: ECHOCARDIOGRAM 01/18/2024 (Final) [...] will be BP control. Candie Almaguer M.D. flat bed knitter Advanced Heart Failure Program Division of Cardiovascular Medicine [facility] [email or web address] [phone] fax [phone] documented in this encounter [facility] 02-26-2024 Instructions Marsha Mckeon RN - 02/26/2024 9:30 AM EDT The following instructions were given today: Labs today Follow up with Dr. Almaguer as needed. Your after visit summary (AVS) is viewable in [facility] My Chart. Call RN if you have cardiac questions/concerns M-F 8 to 4:30 ; office # [phone], option 6, then option 2. Guidelines for home management: 1. Continue to monitor weight first thing each morning. 2. Report to the CHF CLINIC ([phone]) any significant weight change. Remember that weight [...] to have labs/tests run outside of the [facility] and you do not hear from us 1-2 days after they are performed, you must call us to ensure we received the results. Office fax # [phone]. No news does not necessarily mean that your tests are normal, it could mean we did not get the results. For questions/updates: please provide your name with spelling, date of and question or update All calls are prioritized and responses researched, if possible, prior to calls being returned. Call Scheduling for any appointment/procedure verification or changes [phone], option 7 or [facility] Heart Schedulers at [phone], option 1. documented in this encounter [facility] 01-23-2024 Nurse Note Jakob wrap & kerlix [...] understanding on picking up needed prescriptions at [facility] as listed on discharge summary. Patient denies any unanswered questions at this time. Patient has been discharged with all of their belongings, transported via wheelchair on oxygen to front entrance for brother to transport home on home oxygen supply. [facility] 01-23-2024 Miscellaneous Notes Jakob wrap & kerlix removed to LUE per surgical team instructions/note. Incisional site dressing to left inner bicep area remains CDI at this time. Circ checks to LUE are WNL at time of discharge. After-care information reviewed, including daily incisional care starting tomorrow (2/25), monitoring for s/s infection, dressing supplies provided as well for incisional care. IV access removed, dressing CDI at time of discharge. Patient has received all discharge instructions and voices understanding on picking up needed prescriptions at [facility] pharmacy as listed on discharge summary. Patient [...] Pain): verbalization of pain descriptors George Styles ([id number]) PRE OPERATIVE DIAGNOSIS High output congestive heart failure [I50.83] POST OPERATIVE DIAGNOSIS Post-Op Diagnosis Codes: * High output congestive heart failure [I50.83] PROCEDURE PERFORMED Procedure(s) (LRB): LIGATION ANGIOACCESS AVF (Left) Resection of large aneurysmic vein PRIMARY CLOSURE Yes INTRAOPERATIVE FINDINGS No significant abnormalities SURGEON Surgeons and Role: * Jyoti Bryant MD, PhD - Primary ANESTHESIOLOGIST Anesthesiologist: Celena Tiwari MD; Kehinde Gutierrez MD RESIDENTIAL REAL ESTATE SALES MANAGER: David Jasso APRN-RESIDENTIAL REAL ESTATE SALES MANAGER Arbitrator Assisting: Mini Khan MD SURGICAL STAFF Fruit Raiser: Zoila Lawrence RN Relief Fruit Raiser: Marimar Saravia RN Relief Scrub: Briseyda Self [...] patent, patient breathing easily. Report received from president/gm production & live experiences and report received from anesthesiology. Pt arrived [...] Axillary block. SURGEON(S): Jyoti Bryant MD, PHD PUMP RUNNER: Mynor Fall MD ESTIMATED BLOOD LOSS: Minimal. [...] Jyoti Bryant MD, PHD ATTENDING SHANNON/Constanza JOB: [id number] DOC: [id number] Patient has been asleep this shift. He [...] overnight coverage, Jasper Gastelum MD, via pager #[phone] Pt- George Styles. Smith 1082. TM1. Was wondering if he can have his Melatonin order increased to 6mg. Per pt, he usually takes 8mg at home. -SAMI Duffy #[phone] Tati Charles RN Internal Medicine Daily Progress Note Patient: George Styles, 1970, [id number] Physician: Arelis Mera MD, PGY3, Pager #[phone], TM1 service Assessment/Plan: George Styles is a [...] 5mg CAD: non-obstructive CAD on [facility] 2019. - continue home aspirin 81mg daily, [...] MD Mr. Styles was admitted to [address] [place] [address]. On admission to 0, from outside facility a dual RN initial assessment of skin condition was performed by Izzy Gutierrez RN and Leroy Singleton RN. Skin Assessment: Skin within defined limits:Yes Jose Score: 20 Wound Vision Cut Off Man images obtained: No LDA Added: No Based [...] available. documented in this encounter [facility] 01-23-2024 Nurse Note Home Oxygen [...] of oxygen is also required.) [facility] 01-23-2024 History of Present illness Narrative BRIEF [...] monitor Leonel Harris DO General Surgery Pager [phone] CM went to bedside to talk with patient. Patient states he has home oxygen through [employer]. He uses 2.5 LNC around the clock. Patient states his brother will bring a tank for discharge. Anticipate patient will discharge tomorrow AM. Brother updated. Girish Oro RN, BSN Clinical Cutting And Printing Machine Operator Please note that I am a float home health care case manager and may not cover the same service every day. Please call the main Case Management office at [phone] for up-to-date coverage. Verified patients identity using [...] Daily Progress Note Patient: George Styles, 1970, [id number] Physician: Yury Ozuna MD, PGY1, Pager #[phone], TM1 service Assessment/Plan: George Styles is a [...] by transplant surgery on 01/22 (NPO at [place], updated type & screen) S/p Liver-Kidney Transplant [...] 5mg CAD: non-obstructive CAD on [facility] 2018. - continue home aspirin 81mg daily, [...] with the Nutrition plan outlined in the Certified Industrial Hygienist s note. DVT prophylaxis with lovenox Diet [...] LU assistant professor of german Transplant nephrology Images from the original note were not included. Internal Medicine Daily Progress Note Patient: George Styles, 1970, [id number] Physician: Yury Ozuna MD, PGY1, Pager #[phone], UU1 service Assessment/Plan: George Styles is a 53 [...] 5mg CAD: non-obstructive CAD on [facility] 2018. - continue home aspirin 81mg daily, [...] with the Nutrition plan outlined in the Certified Industrial Hygienist s note. DVT prophylaxis with lovenox Diet [...] Provider: Zuly Bruno NP Pharmacy: [facility] Other Comments: Patient reported his Last Home Dose of mycophenolate and tacrolimus was on 01/15/24 at 0700. Medications that need removed from Outside Medication Reconciliation list: Please remove all medications. Please feel free to contact me with any further questions. Name: Heidy Chatman Phone #: [phone] Date/Time: 01/19/2024 12:08 PM Time Spent: 15 minutes Associated attestation - Fidelina Alarcon [facility] - 01/19/2024 12:41 PM EST Department of Pharmacy Admission Medication Reconciliation Note Patient: George Styles Room/Bed: 1082/A I have reviewed the home medication list with the Food Processing Plant Manager. The home medication list status is: complete. All changes to the home medication list have been updated in [facility]. Updated AIRPLANE RENTAL CLERK Med List: Prior to Admission Medications [...] questions. Name: Fidelina Ortiz Dorian [facility] Phone #: [phone] Date/Time: 01/19/2024 12:41 PM Internal Medicine Daily Progress Note Patient: George Styles, 1970, [id number] Physician: Yury Ozuna MD, PGY1, Pager #[phone], OH0 service Assessment/Plan: Acute Hypoxic Respiratory Insufficiency GARCIA, [...] 5mg CAD: non-obstructive CAD on [facility] 2018. - continue home aspirin 81mg daily, [...] with the Nutrition plan outlined in the Certified Industrial Hygienist s note. DVT prophylaxis with lovenox Diet [...] Daily Progress Note Patient: George Styles, 1970, [id number] Physician: Yury Ozuna MD, PGY1, Pager #[phone], TM1 service Assessment/Plan: Updates: - continued diuresis [...] 5mg CAD: non-obstructive CAD on [facility] 2018. - continue home aspirin 81mg daily, [...] with the Nutrition plan outlined in the Certified Industrial Hygienist s note. DVT prophylaxis with lovenox Diet [...] of german Transplant nephrology Pt known to chopper feeder from previous admissions. Provided emotional and spiritual support. Patient shared about: family support, medical course Sandstone Inspector Repairer provided: - Supportive presence - Active listening - Validation of feelings/emotions Patient encouraged to request a chopper feeder as needed. Chaplains are available in-house 24 hours a day and 7 days a week. For urgent matters in [facility], please page [phone]. If the request is not urgent, please enter a consult. Consults are responded to within 24 hours. Senior Staff Sandstone Inspector Repairer Angie Singh Mdiv, [facility] [phone] [email or web address] On-call TYLOR: coding spec David: 22/06 Pager TYLOR,APOORVA, and Brock Hernandez Pager [phone] 01/18/24 1342 Clinical Encounter Type Visited With Patient Visit Type Introduction Pastoral Time Spent 15 min Referral Other (See Comment) (rounding) Spiritual Assessment Emotional Observation Coping well;Anxiety Hope Observation Specific hope focus Support Observation By Family Interventions Provided Active listening;Supportive presence Facilitated Verbalization of feelings;Identifying support system;Identifying Sources of spiritual well-being Explored Expectations;Treatment decisions Social Work Faculty Member Education Social Work Faculty Member Service Available Yes Educated Patient Outcomes Patient [...] interaction. Name: Fidelina Alarcon RPH Phone #: [phone] Date/Time: 01/18/2024 9:56 AM Discharge Planning Patient [...] Yes Name and Contact information: Gian Styles ([phone]) Would you like to add additional adult [...] oxygen?: Yes Oxygen Provider and Contact : [employer] Liter-Flow?: Order for oxygen use?: unknown at [...] patient on Anticoagulation? : No [id number] [place] [address] - [address] [facility] [address] [facility] [id number] Ultrasonic Seaming Machine Operator Does the patient or loan servicing representative express financial concerns? : No Employed?: [...] Plan 1. Identified self and role as Cutting And Printing Machine Operator. 2. Confirmed and updated demographics and treatment team. 3. Cutting And Printing Machine Operator will continue to follow with medical team for any other additional discharge needs. Kasandra DON RN [facility] [phone] *Please note I am float CM and work Thursday and Thursday every other week. Please call [phone] for assist in my absence. Internal Medicine Daily Progress Note Patient: George Styles, 1970, [id number] Physician: Yury Ozuna MD, PGY1, Pager #[phone], TM1 service Assessment/Plan: Updates: - continue diuresis [...] 5mg CAD: non-obstructive CAD on [facility] 2018. - continue home aspirin 81mg daily, [...] ordered 2D echo. Kevin Sage MD, FASN Welding Equipment Repairer of Clinical Medicine [facility] documented in this encounter [facility] 01-23-2024 Plan of care note [...] Symptoms (Acute Pain): verbalization of pain descriptors [facility] [...] your doctor for further instructions. Please call [phone], Option 1 or [phone] to schedule your appointment with the Heart Failure Clinic. Arleis Mera MD - 01/22/2024 3:08 PM EST You can change your dressing 48 hours from the procedure The following attachments cannot be sent through Care Everywhere.Heart Failure: Avoiding Triggers (Gibraltarian)Heart Failure: Limiting Sodium (Gibraltarian)Pain and Pain Control ([facility]) (Gibraltarian)documented in this encounter [facility] 01-22-2024 Surgery Postoperative evaluation and management note George Styles ([id number]) PRE OPERATIVE DIAGNOSIS High output congestive heart failure [I50.83] POST OPERATIVE DIAGNOSIS Post-Op Diagnosis Codes: * High output congestive heart failure [I50.83] PROCEDURE PERFORMED Procedure(s) (LRB): LIGATION ANGIOACCESS AVF (Left) Resection of large aneurysmic vein PRIMARY CLOSURE Yes INTRAOPERATIVE FINDINGS No significant abnormalities SURGEON Surgeons and Role: * Jyoti Bryant MD, PhD - Primary ANESTHESIOLOGIST Anesthesiologist: Celena Tiwari MD; Kehinde Gutierrez MD RESIDENTIAL REAL ESTATE SALES MANAGER: David Jasso APRN-RESIDENTIAL REAL ESTATE SALES MANAGER Arbitrator Assisting: Mini Khan MD SURGICAL STAFF Fruit Raiser: Zoila Lawrence RN Relief Fruit Raiser: Marimar Saravia RN Relief Scrub: Briseyda Self Scrub Person: Cinda Mai RN Resident Assisting: Leonel Harris DO Fellow: Miki Mcgowan MD, MBBS COMPLICATIONS None ESTIMATED BLOOD LOSS Minimal SPECIMENS No specimen sent * No specimens in log * Jyoti Bryant MD, PhD January 22, 2024 1:34 PM [facility] Work Phone: 01-22-2024 Nurse Note Arrived to PACU assisted by anesthesiology. Connected to monitors. Turned side to side, OR linens removed, repositioned. Airway patent, patient breathing easily. Report received from president/gm production & live experiences and report received from anesthesiology. Pt arrived awake. VSS. Sats slightly low. Pulm rehab used. Sats currently 3lpm @ 93%. Pt states he uses CPAP nocturnally. A&Ox4. Nerve block left arm, elevated. [facility] 01-22-2024 Surgery Postoperative evaluation and management note [...] Axillary block. SURGEON(S): Jyoti Bryant MD, PHD PUMP RUNNER: Mynor Fall MD ESTIMATED BLOOD LOSS: Minimal. [...] Jyoti Bryant MD, PHD ATTENDING SHANNON/Constanza JOB: [id number] DOC: [id number] [facility] 01-22-2024 Plan of care note Patient has [...] 1939 Plan Of Care Reviewed With: patient [facility] 01-20-2024 Consult note Associated Order (s): IP CONSULT TO SURGERY - TRANSPLANT (RENAL) Images from the original note were not included. TRANSPLANT SURGERY CONSULT NOTE: Consult: 01/20/2024, 4:03 PM Janitorial Maintenance Worker: Starla Morris MD Reason for Consult: Requesting Dr Carson Bryant for AVF revision/closure given new onset high output heart failure George Styles is a 53 y.o. male CURRENT HOSPITALIZATION LOS: Admit Date: 01/16/2024 [facility] Hospital LOS: 4 days George [...] 04/12/2020 Laterality: N/A; Surgeon: LU Palma; Location: [facility] SAME DAY SURGERY MAIN OR KIDNEY TRANSPLANT W/O [place] NEPHRECTOMY N/A 04/12/2020 Laterality: N/A; Surgeon: LU [...] Studies: Labs-CBC: WBC/Hgb/Hct/Plts: 3.79/12.5/38.9/166 (01/20 611) Labs-Chem 7([facility]): Bun/Creat/Cl/CO2/Glucose: 15/1.12/105/28/88 (01/20 611) Na/K+/Phos/Mg/Ca: 141/3.8/--/1.6/-- [...] seen and staffed with Dr. Mcgowan fellow store consultant Thank you, Starla Morris MD Associated attestation - Jyoti Bryant MD, PhD - 01/22/2024 10:54 AM EST Beata Bryant MD, PhD, have independently seen and examined the patient, reviewed the labs, discussed the patient with the fellow/resident and agree with the note. [facility] Work Phone: 01-20-2024 Consult note Associated Order (s): IP CONSULT TO SURGERY - TRANSPLANT (RENAL) Images from the original note were not included. TRANSPLANT SURGERY CONSULT NOTE: Consult: 01/20/2024, 4:03 PM Janitorial Maintenance Worker: Starla Morris MD Reason for Consult: Requesting Dr Carson Bryant for AVF revision/closure given new onset high output heart failure George Styles is a 53 y.o. male CURRENT HOSPITALIZATION LOS: Admit Date: 01/16/2024 [facility] Hospital LOS: 4 days George [...] DAY SURGERY MAIN OR KIDNEY TRANSPLANT W/O [place] NEPHRECTOMY N/A 04/12/2020 Laterality: N/A; Surgeon: LU Palma; Location: [facility] SAME DAY SURGERY MAIN OR OTHER [...] solution 100 mg 100 mg Oral Q12H Timotyh Joseph MD 100 mg at 01/20/24918 Melatonin [...] Studies: Labs-CBC: WBC/Hgb/Hct/Plts: 3.79/12.5/38.9/166 (01/20 611) Labs-Chem 7([facility]): Bun/Creat/Cl/CO2/Glucose: 15/1.12/105/28/88 (01/20 611) Na/K+/Phos/Mg/Ca: 141/3.8/--/1.6/-- [...] seen and staffed with Dr. Mcgowan fellow store consultant Thank you, Starla Morris MD Associated attestation - Jyoti Bryant MD, PhD - 01/22/2024 10:54 AM EST I. Jyoti Bryant MD, PhD, have independently seen and examined the patient, reviewed the labs, discussed the patient with the fellow/resident and agree with the note. Associated Order(s): IP CONSULT TO HEPATOBILIARY [facility] OS Main Hepatology Consult WebExchange --> IM Consult Serv [facility] --> [facility] Main Hepatology consult [...] DAY SURGERY MAIN OR KIDNEY TRANSPLANT W/O [place] NEPHRECTOMY N/A 04/12/2020 Laterality: N/A; Surgeon: LU Palma; Location: [facility] SAME DAY SURGERY MAIN OR OTHER [...] (order for outpatient) Please SecureChat or Call ([phone]) for any questions. Await attending attestation for final recommendations. Hank Noel MD Division of Gastroenterology, Hepatology, and Nutrition Clinical Fellow, PGY-5 Pager: [phone] For urgent/stat calls or consults 5pm to 7am, please page the on-call GI fellow on QGenda. [facility]--> Internal Medicine--> Gastroenterology, Hepatology, & Nutrition--> 1st Call Fel Alysia For urgent/stat calls or consults 7am to 5pm during the weekend, please page the on-call GI fellow on QGenda. [facility]--> Internal Medicine--> Gastroenterology, Hepatology, & Nutrition--> All Hep & East Wknd Cons Fel Day For follow up questions regarding this patient 7am to 5pm during the weekday, contact the Hepatology consults fellow or CARLOS A on [employer]enda. [facility]--> Internal Medicine--> Gastroenterology, Hepatology, & [...] MSc documented in this encounter [facility] 01-19-2024 Nurse Note 01/19/24 0900 Vitals ICU/PCU [...] when talking/moving. Paulette Cordon RN [facility] 01-19-2024 Nurse Note Paged overnight coverage, Jasper Gastelum MD, via pager #[phone] Pt- George Styles. Sarah 1082. TM1. Was wondering if he can have his Melatonin order increased to 6mg. Per pt, he usually takes 8mg at home. -SAMI Duffy #[phone] Tati Charles RN [facility] 01-18-2024 Consult note Associated Order (s): [facility]ology Consult WebExchange --> IM Consult Serv [facility] --> [facility] Main Hepatology consult [...] DAY SURGERY MAIN OR KIDNEY TRANSPLANT W/O [place] NEPHRECTOMY N/A 04/12/2020 Laterality: N/A; Surgeon: LU [...] (order for outpatient) Please SecureChat or Call ([phone]) for any questions. Await attending attestation for final recommendations. aHnk Noel MD Division of Gastroenterology, Hepatology, and Nutrition Clinical Fellow, PGY-5 Pager: [phone] For urgent/stat calls or consults 5pm to 7am, please page the on-call GI fellow on QGenda. [facility]--> Internal Medicine--> Gastroenterology, Hepatology, & Nutrition--> 1st Call Janae Hatfield For urgent/stat calls or consults 7am to 5pm during the weekend, please page the on-call GI fellow on QGenda. [facility]--> Internal Medicine--> Gastroenterology, Hepatology, & Nutrition--> All Hep & East Wknd Cons Fel Day For follow up questions regarding this patient 7am to 5pm during the weekday, contact the Hepatology consults fellow or CARLOS A on [employer]. [facility]--> Internal Medicine--> Gastroenterology, Hepatology, & [...] (order for outpatient) Michael Estrada MD, MSc [facility] Work Phone: 01-16-2024 Plan of care note Internal Medicine Daily Progress Note Patient: George Styles, 1970, [id number] Physician: Arelis Mera MD, PGY3, Pager #[phone], TM1 service Assessment/Plan: George Styles is a [...] 5mg CAD: non-obstructive CAD on [facility] 2018. - continue home aspirin 81mg daily, [...] MD, on rounds. Signed, Arelis Mera MD [facility] 01-16-2024 Nurse Note Mr. Styles was admitted to [address] [place] [address]. On admission to [facility], from outside facility a dual RN initial assessment of skin condition was performed by Izzy Gutierrez, RN and Leroy Singleton, SAMI. Skin Assessment: Skin within defined limits:Yes Jose Score: 20 Wound Vision Cut Off Man images obtained: No LDA Added: No Based [...] room closest to nurses station when available. [facility] 01-16-2024 History and physical note Images from the original note were not included. Internal Medicine Admission History & Physical Patient: George Styles, 1970, [id number] Physician: Timothy Joseph MD, PGY1, Pager #[phone], TM 1 service Date of face to [...] GUIDANCE 05/17/2022 Surgeon: Enzo Heart DO; Location: [facility] INTERVENTIONAL RADIOLOGY (VIR) LIVER TRANSPLANT, ORTHOTOPIC N/A 04/12/2020 Laterality: N/A; Surgeon: LU Palma; Location: [facility] SAME DAY SURGERY MAIN OR KIDNEY TRANSPLANT W/O [place] NEPHRECTOMY N/A 04/12/2020 Laterality: N/A; Surgeon: LU Palma; Location: [facility] SAME DAY SURGERY MAIN OR OTHER [...] itraconazole Fax results to: Dr. White - [phone] Transplant Neph - [phone] Gabapentin 400 MG capsule Sig: Take 1 [...] erythema: Skin: No jaundice or rash Neuro: slider assembler 3-7, 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 Strength grossly [...] 5mg CAD: non-obstructive CAD on [facility] 2018. - continue home aspirin 81mg daily [...] Pierson, Luisa Steven, Renee Rivera, Daisha Max Supervisor Dry Paste: José Miguel Garnica All Txt: 04/13/2020 (Kidney), [...] results found for: CYCLOSPORIN , CYCLOSPORIN2 , [id number] , CYCLORAND No results found for: SIROLIMUS [...] request in chart. Kevin Sage MD Pager [phone] [facility] 01-16-2024 History and physical note Images from the original note were not included. Internal Medicine Admission History & Physical Patient: George Styles, 1970, [id number] Physician: Timothy Joseph MD, PGY1, Pager #[phone], TM 1 service Date of face to [...] GUIDANCE 05/17/2022 Surgeon: Enzo Heart DO; Location: [facility] INTERVENTIONAL RADIOLOGY (VIR) LIVER TRANSPLANT, ORTHOTOPIC N/A 04/12/2020 Laterality: N/A; Surgeon: LU Palma; Location: [facility] SAME DAY SURGERY MAIN OR KIDNEY TRANSPLANT W/O [place] NEPHRECTOMY N/A 04/12/2020 Laterality: N/A; Surgeon: LU Palma; Location: [facility] SAME DAY SURGERY MAIN OR OTHER [...] itraconazole Fax results to: Dr. White - [phone] Transplant Neph - [phone] Gabapentin 400 MG capsule Sig: Take 1 [...] noted in the HPI. Physical Exam: Vitals: 02/17/24 0056 BP: 145/70 Resp: Temp: 97.7 F (36.5 [...] erythema: Skin: No jaundice or rash Neuro: slider assembler 3-7, 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 Strength grossly [...] 5mg CAD: non-obstructive CAD on [facility] 2018. - continue home aspirin 81mg daily [...] Pierson, Luisa Steven, Renee Rivera, Daisha Max Supervisor Dry Paste: José Miguel Garnica All Txt: 04/13/2020 (Kidney), [...] results found for: CYCLOSPORIN , CYCLOSPORIN2 , [id number] , CYCLORAND No results found for: SIROLIMUS [...] request in chart. Kevin Sage MD Pager [phone] documented in this encounter [facility] 02-13-2024 History of Present illness Narrative [facility] [...] Name: Prograf 0.2 MG Contact Info: Specialty ([place]) [phone] [facility] [phone] [facility] [phone] [facility] [phone] Bedside Delivery ([facility]) [phone] [facility] RX OUTREACH ADVANCED: Call Information: Date and Time of Contact: 01/25/2024 10:23 AM Method of Contact: By Phone Contact Type: Prescriptions Contactor: [facility] Contactee: Patient Contact Outcome: Left message (prograf myco) Contact Info: Specialty ([place]) [phone] [facility] [phone] [facility] [phone] [facility] [phone] Bedside Delivery ([facility]) [phone] documented in this encounter [facility] 01-12-2024 History of Present illness [facility]arrative [facility] [...] Prograf 0.2 MG Contact Info: Specialty ([place]) [phone] [facility] [phone] [facility] [phone] [facility] [phone] Bedside Delivery ([facility]) [phone] [facility] RX OUTREACH ADVANCED: Call Information: Date and Time of Contact: 01/25/2024 10:23 AM Method of Contact: By Phone Contact Type: Prescriptions Contactor: [facility] Contactee: Patient Contact Outcome: Left message (prograf myco) Contact Info: Specialty ([place]) [phone] [facility] [phone] [facility] [phone] [facility] [phone] Bedside Delivery ([facility]) [phone] [facility] RX OUTREACH ADVANCED: Call Information: Date and Time of Contact: 01/27/2024 10:19 AM Method of Contact: By Phone Contact Type: Prescriptions Contactor: [facility] Contactee: Patient Contact Outcome: Left message (myco prograf) Contact Info: Specialty ([place]) [phone] [facility] [phone] [facility] [phone] [facility] [phone] Bedside Delivery ([facility]) [phone] documented in this encounter [facility] 01-12-2024 History of Present illness Narrative [facility] [...] Prograf 0.2 MG Contact Info: Specialty ([place]) [phone] [facility] [phone] [facility] [phone] [facility] [phone] Bedside Delivery ([facility]) [phone] [facility] RX OUTREACH ADVANCED: Call Information: Date and Time of Contact: 01/25/2024 10:23 AM Method of Contact: By Phone Contact Type: Prescriptions Contactor: [facility] Contactee: Patient Contact Outcome: Left message (prograf myco) Contact Info: Specialty ([place]) [phone] [facility] [phone] [facility] [phone] [place] [phone] Bedside Delivery ([facility]) [phone] [facility] RX OUTREACH ADVANCED: Call Information: Date and Time of Contact: 01/27/2024 10:19 AM Method of Contact: By Phone Contact Type: Prescriptions Contactor: [facility] Contactee: Patient Contact Outcome: Left message (myco prograf) Contact Info: Specialty ([place]) [phone] [facility] [phone] [facility] [phone] [place] [phone] Bedside Delivery ([facility]) [phone] [facility] RX OUTREACH ADVANCED: Call Information: Date and Time of Contact: 02/01/2024 3:22 PM Contact Type: Prescriptions Contactor: [facility] Contactee: Patient Contact Outcome: Left message Shipping/Pickup: Medication Name: Mycophenolate 360mg and Prograf 0.2mg Pack Contact Info: Specialty ([place]) [phone] [facility] [phone] [facility] [phone] [place] [phone] Bedside Delivery ([facility]) [phone] documented in this encounter [facility] 01-06-2024 History of Present illness [...] The neurologist wanted to send him to [facility] neurology but it is out [...] 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) documented in this encounter [facility] 10-06-2023 History of Present illness [...] Prograf 0.2 MG Contact Info: Specialty ([place]) [phone] [facility] [phone] [facility] [phone] [facility] [phone] Bedside Delivery ([facility]) [phone] [facility] RX OUTREACH ADVANCED: Call Information: Date and Time of Contact: 10/23/2023 2:00 PM Method of Contact: By Phone Contact Type: Prescriptions Contactor: [facility] Contactee: Patient Contact Outcome: Left message and Call back later Shipping/Pickup: Medication Name: Mycophenolate 360mg and Prograf 0.2mg Contact Info: Specialty ([place]) [phone] [facility] [phone] [facility] [phone] [facility] [phone] Bedside Delivery ([facility]) [phone] documented in this encounter [facility] 09-11-2023 Miscellaneous Notes Pt discharged home with [...] the oxygen during the night. pt will excelsior picker his oxygen from [employer] supply, 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 This RN [...] Patient seen ambulating in the gallo with AUTOMATIC PATTERN EDGER. Patient was mildly short of breath on [...] & HR 114. Messaged Mainor Loomis, via [employer] secure chat, Temp 100.8. His tylenol order [...] short period of time. 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 This morning, [...] [address] Loera here also (labor law professor) Dr. Diaz aware of pt's increased oxygen [...] Mr. Styles was admitted to 1062 [address]. On admission to R10, from home a dual RN initial assessment of skin condition was performed by Erica Houston RN and Wilma Hay, RN. Skin Assessment: Skin within defined limits:Yes [...] available. documented in this encounter [facility] 09-11-2023 History of Present illness Narrative Provided follow-up emotional and spiritual support. Patient shared about rosemary of discharge and looking forward to seeing family Sandstone Inspector Repairer provided: - Supportive presence - Active listening - Validation of feelings/emotions Patient encouraged to request a chopper feeder as needed. Chaplains are available in-house 24 hours a day and 7 days a week. For urgent matters in [facility], please page [phone]. If the request is not urgent, please enter a consult. Consults are responded to within 24 hours. Senior Staff Sandstone Inspector Repairer Angie Singh Mdiv, [facility] [place] [phone] [email or web address] 22/06 On-call Kirk: [phone] 22/06 Pager ,BS, and Brock Hernandez Pager [phone] 09/11/23 1430 Clinical Encounter Type Visited With Patient Visit Type Follow-up Pastoral Time Spent 15 min Referral Other (See Comment) (rounding) Spiritual Assessment Spiritual Observation Spirituality helpful Emotional Observation Coping well Hope Observation Specific hope focus Support Observation By Family Interventions Provided Active listening;Supportive presence Facilitated Verbalization of feelings Explored Expectations Social Work Faculty Member Education Social Work Faculty Member Service Available Yes Educated Patient Plan of Care Continue Visiting PRN Images from the original note were not included. [facility] Note: Non-Verbal Med Rec [facility] received the following discharge prescription(s): Total cost is $0. I have reviewed the Discharge Rx Reconciliation Report. The discharge prescription(s) will be delivered to the patient on 09/11/2023. Dimitrios Gurrola RPh,PharmD Specialty ([place]) [phone] [facility] [phone] [facility] Bedside Delivery [phone] [facility] [phone] [facility] Bedside Delivery [phone] [facility] [phone] [facility] Bedside Delivery [phone] [place] [phone] [place] [phone] Internal Medicine Daily Progress Note Patient: George Styles, 1970, [id number] Physician: Eavn Kelly MD, PGY-1, TM1 service Subjective/Interval History: Patient continues to require oxygen overnight for desaturations. With insurance limitations, only accepting agency to provide home oxygen backed out. After calling them to discuss, Lynn stated she would be willing to have patient drive to their facility to excelsior picker supplies, however they close at 5pm. 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 His [place] kidney disease was noted to be presumed [...] BID CAD: non-obstructive CAD on [facility] 2018. - continue home aspirin 81mg daily, [...] 5.05 (H) 11/19/2018 Kevin Sage MD, SERA Welding Equipment Repairer of Clinical Medicine [facility] Images from the original note were not included. Final Discharge Planning and Transportation Final Discharge Planning Discharge Disposition: Home Services at Discharge: Outpatient clinical services (ie: lab draws, transfusions, injectables) (Home Oxygen by [facility]) Selected Continued Care - Admitted Since 08/28/2023 Durable Medical Equipment Coordination complete. Service Provider Selected Services Address Phone Fax Patient Preferred [employer] [facility] Durable Medical Equipment [address] [facility] [address] [phone] Internal Comment last updated by Lora Lawrence RN 09/10/2023 1334 Correct contact information: [facility] [address] [place] [address] [address] [place] [address] supervisor tank house- you do not need to call at discharge, I already notified the company. Addendum [phone] [facility] notified this CM they are out of patient's insurance area and will not be able to service this patient at time of discharge. Provider notified. Addendum [phone] Dr Kelly called [facility] spoke to Lynn and she said they are willing to accept patient if the patient would drive to the [place] office and excelsior picker the supplies. Patient is willing to [...] Lora Colón RN, MSN, CCM, CMCN Clinical Cutting And Printing Machine Operator- R10 Transplant #[phone] Department of Pharmacy Transplant Note Patient: George [...] dose adjustment Name: Matt Kramer RPh,PharmD Phone: [phone] Date/Time: 09/10/2023 11:33 AM This CM sent referral via [employer] for O2 concentrator to 4 agencies Start date today Timer set for 1330 [facility] [employer] Addendum 1332 One accepting company reserved in [facility] [address] [place] [address] Lora Colón RN, MSN, CCM, CMCN Clinical Cutting And Printing Machine Operator- R10 Transplant #[phone] NUTRITION FOLLOW-UP Nutrition Plan of Care: 1. Continue current diet order. 2. No oral supplements warranted at this time. 3. Monitor for significant weight changes. Monitor GI, skin integrity. 4. Monitor and encourage po intakes with goal of average po being 75-100%. 5. automotive refinish technician to follow. ___ Met with patient [...] time. Will continue to monitor. RHIANNON BirminghamR Pager:[phone] Transplant Infectious Disease (Team 3) Progress Note [...] sign off. Please Epic message or page [phone] with questions. 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 His [place] kidney disease was noted to be presumed [...] BID CAD: non-obstructive CAD on [facility] 2018. - continue home aspirin 81mg daily, [...] to follow. Please Epic message or page [phone] with questions. 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 His [place] kidney disease was noted to be presumed [...] BID CAD: non-obstructive CAD on [facility] 2018. - continue home aspirin 81mg daily, holding atorvastatin 20mg daily Gout: continue home allopurinol 200mg daily BPH: continue home flomax 0.4mg daily DVT PPX: SQH Code Status: Full Code Disposition: Pending clinical course. Anticipate eventual discharge home. Discussed with team and attending, Kevin Sage MD, on rounds. 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 His [place] kidney disease was noted to be presumed [...] BID CAD: non-obstructive CAD on [facility] 2018. - continue home aspirin 81mg daily, [...] 5.05 (H) 11/19/2018 Kevin Sage MD, SERA Welding Equipment Repairer of Clinical Medicine [facility] Transplant Infectious Disease [...] to follow. Please Epic message or page [phone] with questions. Ann Marie Haskins MD PGY-4, [...] he continues to improve. Please message via [employer]ao secure chat or page with any questions or concerns. Evan White DO Welding Equipment Repairer Division of Infectious Disease Transplant Infectious Disease [...] to follow. Please Epic message or page [phone] with questions. Evan White DO Transplant Infectious Diseases Images from the original note were not included. Pulmonary/Critical Care Medicine Daily Progress Note Reason for Consultation: bronch for infectious workup Requesting Physician: Dr. Sage CURRENT HOSPITALIZATION: Admit Date: 08/28/2023 [facility] LOS: 9 days Impression 1. [...] and interpreted reviewed the radiographic data in [employer]. 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 His [place] kidney disease was noted to be presumed [...] BID CAD: non-obstructive CAD on [facility] 2018. - continue home aspirin 81mg daily, [...] 5.05 (H) 11/19/2018 Kevin Sage MD, MADISONN Welding Equipment Repairer of Clinical Medicine [facility] Images from the original note were not included. Pulmonary/Critical Care Medicine Daily Progress Note Reason for Consultation: bronch for infectious workup Requesting Physician: Dr. Sage CURRENT HOSPITALIZATION: Admit Date: 08/28/2023 [facility] Hospital LOS: 8 days Impression [...] and interpreted reviewed the radiographic data in [facility]. Acute Occupational Therapy Evaluation Prior [...] Assessment: Transfer Assessment: Sit to Stand Transfer [place] Level: Sit->Stand: independent Skilled Intervention/Details: Sit->Stand: x1 from EOB, x1 from toilet Stand to Sit Transfer [place] Level: Stand->Sit: independent Skilled Intervention/Details: Stand->Sit: x1 to toilet, x1 to EOB Functional Mobility: Functional Mobility [place] Level: Functional Mobility/Gait: independent Ambulation Distance (Feet): [...] CURRENT AM-PAC Activity Raw Score: 21 CURRENT AM-[facility] Activity Functional Limitation/Modifier: 32.79% Currently Impaired [...] Physical Therapy Evaluation Prior to Admission [facility] score(s): PRIOR LEVEL AM-PAC Mobility Raw [...] at rest on 3LPM is 96%. To orn 93% with ambulation, endorses GARCIA 6-7/10. While [...] Intact Mobility Assessment: Supine to Sit Mobility [place] Level: Supine->Sit: modified independence Bed Features/Set-up: Supine->Sit: Head of bed elevated Sit to Supine Mobility [place] Level: Sit->Supine: not tested Balance: Sitting Balance [...] environment. Transfer Assessment: Sit to Stand Transfer [place] Level: Sit->Stand: independent Skilled Intervention/Details: Sit->Stand: From EOB x 2 without difficulty. Stand to Sit Transfer [place] Level: Stand->Sit: independent Assistive Device: Stand->Sit: armed chair Skilled Rationale: Verbal cues, Positioning Gait/Functional Mobility: Gait Assessment [place] Level: Gait: stand-by assist Assistive Device: Gait: rollator Ambulation Distance (Feet): 400 Gait Deviations Identified: decreased grace, decreased gait speed Gait Skilled Rationale: verbal, upright posture, increase step length, increase foot clearance Skilled Intervention/Details - Gait: Reasonable foot clearnce without loss of balance but endorsing dyspnea as 6-7/10. Stairs: Stairs Assessment [place] Level: Stair Negotiation: not tested Outcome Score(s): [...] a railin - A Little Assistance CURRENT AM-[facility] Mobility Raw Score: 21 CURRENT -[facility] Mobility Functional Limitation/Modifier: 28.97% Currently Impaired [...] Daily Progress Note Patient: George Styles, 1970, [id number] Physician: Evan Kelly MD, PGY-1, TM1 service [...] s/p combined Liver-kidney transplant on 04/13/20. His [place] kidney disease was noted to be presumed [...] BID CAD: non-obstructive CAD on [facility] 2018. - continue home aspirin 81mg daily, [...] 5.05 (H) 11/19/2018 Kevin Sage MD, SERA Welding Equipment Repairer of Clinical Medicine [facility] Transplant Infectious Disease [...] to follow. Please Epic message or page [phone] with questions. Evan White DO Transplant Infectious Diseases Images from the original note were not included. Internal Medicine Daily Progress Note Patient: George Styles, 1970, [id number] Physician: Evan Kelly MD, PGY-1, TM1 service [...] s/p combined Liver-kidney transplant on 04/13/20. His [place] kidney disease was noted to be presumed [...] BID CAD: non-obstructive CAD on [facility] 2019. - continue home aspirin 81mg daily, [...] Component Value Date TACROLIMUS 3.6 (L) 09/04/2023 LESLYE 4.1 08/17/2023 On significantly reduced immunosuppression given interaction with P 450 system Kevin Sage MD, SERA Welding Equipment Repairer of Clinical Medicine [facility] ERT Note: ERT [...] MD, PhD Internal Medicine and Pediatrics PGY-3 [facility] Brief plan of care update: Called [...] MD, PhD Internal Medicine and Pediatrics PGY-3 [facility] Transplant Infectious Disease (Team 3) Progress [...] to follow. Please Epic message or page [phone] with questions. Evan White DO Transplant Infectious Diseases Internal Medicine Daily Progress Note Patient: George Styles, 1970, [id number] Physician: Evan Kelly MD, PGY-1, TM1 service [...] s/p combined Liver-kidney transplant on 04/13/20. His [place] kidney disease was noted to be presumed [...] function CAD: non-obstructive CAD on [facility] 2018. 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 His [place] kidney disease was noted to be presumed [...] function CAD: non-obstructive CAD on [facility] 2018. - continue home aspirin 81mg daily, [...] 5.05 (H) 11/19/2018 Kevin Sage MD, FASN Welding Equipment Repairer of Clinical Medicine [facility] Progression of [...] Lora Colón RN, MSN, CCM, CMCN Clinical Cutting And Printing Machine Operator- R10 Transplant #[phone] Made introductory visit with patient. Provided emotional and spiritual support. Patient shared about: - Source of Rosemary: Camping/Fishing/Family - Spirituality/Christianity Affiliation: raised Bahai - Family Support/history - Experience with illness/hospital course - Hopes for healing/future Sandstone Inspector Repairer provided: - Supportive presence - Active listening - Validation of feelings/emotions - Pledged prayer Patient encouraged to request a chopper feeder as needed. Chaplains are available in-house 24 hours a day and 7 days a week. For urgent matters in [facility], please page [phone]. If the request is not urgent, please enter a consult. Consults are responded to within 24 hours. Senior Staff Sandstone Inspector Repairer Angie Singh Mdiv, [facility] [place] [phone] [email or web address] 22/06 On-call [place]: [phone] 22/06 Pager ,BS, and Brock Hernandez Pager [phone] 09/02/23 0481 Clinical Encounter Type Visited With Patient Visit Type Introduction Pastoral Time Spent 15 min Referral Other (See Comment) (rounding) Spiritual Assessment Spiritual Observation Spirituality helpful Emotional Observation Coping well Hope Observation Specific hope focus Support Observation By Family Interventions Provided Active listening;Supportive presence Facilitated Verbalization of feelings Explored Expectations Social Work Faculty Member Education Social Work Faculty Member Service Available Yes Educated Patient Outcomes Patient Outcomes Reduced distress Plan of Care Continue Visiting PRN NUTRITION RISK SCREENING NOTE Nutrition Plan of Care: 1. Continue current diet order. 2. No oral supplements warranted at this time. 3. Monitor for significant weight changes. Monitor GI and skin integrity. 4. Monitor and encourage po intakes with goal of average po being 100%. 5. automotive refinish technician to follow. George Styles is a 53 y.o. 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 His [place] kidney disease was noted to be presumed hepatorenal syndrome. His post-transplant course was noteworthy for nephrostomy tube (05/17/2022-09/10/2022) due to concern for ureteral stone. He presents as a direct admission for fever, cough, for infectious workup. Pt unavailable and information obtained via chart review Veterinary Technician Assistant Screening Pt's appetite is good. Pt [...] time. Will continue to monitor. RHIANNON BirminghamR Pager:[phone] Internal Medicine Daily Progress Note Patient: George Styles, 1970, [id number] Physician: Evan Kelly MD, PGY-1, TM1 service [...] s/p combined Liver-kidney transplant on 04/13/20. His [place] kidney disease was noted to be presumed [...] function CAD: non-obstructive CAD on [facility] 2018. - continue home aspirin 81mg daily, [...] as outlined above. Kevin Sage MD Pager [phone] Summary: Pharmacy Med Rec Department of Pharmacy [...] 0 Provider: Zuly Bruno NP Pharmacy: [facility] [place] Other Comments: Patient reported his Last Home Dose of mycophenolate & tacrolimus was on 08/28/23 at 0900. Patient reported he was taking Bactrim and benzonatate for fevers and a cough he was having. Please feel free to contact me with any further questions. Name: Heidy Chatman Phone #: [phone] Date/Time: 09/01/2023 2:01 PM Time Spent: 15 minutes Associated attestation - Matt Kramer RPh,PharmD - 09/01/2023 2:28 PM EDT Department of Pharmacy Admission Medication Reconciliation Note Patient: George Styles Room/Bed: 1062/A I have reviewed the home medication list with the Food Processing Plant Manager. All changes to the home medication list have been updated in [facility]. Updated AIRPLANE RENTAL CLERK Med List: Prior to Admission Medications [...] questions. Name: Matt Kramer RPh,PharmD Phone #: [phone] Date/Time: 09/01/2023 2:28 PM Transplant Infectious Disease [...] crypto antigen, EBV PCR -follow pending histo, [id number] labs These recommendations were discussed with the primary team. Transplant ID (Team 3) will continue to follow. Please Epic message or page [phone] with questions. 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 His [place] kidney disease was noted to be presumed [...] function CAD: non-obstructive CAD on [facility] 2018. - continue home aspirin 81mg daily, [...] 5.05 (H) 11/19/2018 Kevin Sage MD, SERA Welding Equipment Repairer of Clinical Medicine [facility] Discharge Planning Patient [...] Yes Name and Contact information: Gian Styles ([phone]) Reviewed and Updated in Demographics? : Yes [...] patient on Anticoagulation? : No [id number] [place] [address] - [address] [facility] [address] [facility] [address] Ultrasonic Seaming Machine Operator Does the patient or loan servicing representative express financial concerns? : No Employed?: [...] Plan 1. Identified self and role as Cutting And Printing Machine Operator. 2. Confirmed and updated demographics and treatment team. 3. Cutting And Printing Machine Operator will continue to follow with medical team/pt for any other additional discharge needs. Kasandra DON RN *Please note I am float CM and work Thursday and Thursday every other week. Please call [phone] for assist in my absence. Internal Medicine Daily Progress Note Patient: George Styles, 1970, [id number] Physician: Evan Kelly MD, PGY-1, TM1 service [...] s/p combined Liver-kidney transplant on 04/13/20. His [place] kidney disease was noted to be presumed [...] function CAD: non-obstructive CAD on [facility] 2018. 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 His [place] kidney disease was noted to be presumed [...] BID CAD: non-obstructive CAD on [facility] 2018. - continue home aspirin 81mg daily, atorvastatin 20mg daily Gout: continue home allopurinol 200mg daily BPH: continue home flomax 0.4mg daily DVT PPX: SQH Code Status: Full Code Disposition: Pending clinical course. Anticipate eventual discharge home. Discussed with team and attending, Kevin Sage MD, on rounds. Signed, Laurel Serrano MD, PhD documented in this encounter [facility] 09-10-2023 Hospital Discharge instructions Laurel [...] a sleep doctor. You will need to excelsior picker the oxygen concentrator when you leave [...] on healthy foods. documented in this encounter [facility] 09-01-2023 Consult note Associated Order (s): IP CONSULT TO PULMONOLOGY Pulmonary Medicine Inpatient Consultation Reason for Consultation: bronch for infectious workup Requesting Physician: Dr. Sage Pulmonary Attending Physician: Dr. Diaz CURRENT HOSPITALIZATION: Admit Date: 08/28/2023 [facility] Hospital LOS: 4 days Impression/Recommendations: [...] Recommendations: - Plan to bronch tomorrow morning. NPO@TN, order placed - would repeat HIV, last [...] short period of time. 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 Other histories as documented in the [...] had any ill contacts. He traveled to [place] to [facility] in May. REVIEW OF SYSTEMS A [...] GUIDANCE 05/17/2022 Surgeon: Enzo Heart DO; Location: [facility] INTERVENTIONAL RADIOLOGY (VIR) LIVER TRANSPLANT, ORTHOTOPIC N/A 04/12/2020 Laterality: N/A; Surgeon: LU Palma; Location: [facility] SAME DAY SURGERY MAIN OR KIDNEY TRANSPLANT W/O [place] NEPHRECTOMY N/A 04/12/2020 Laterality: N/A; Surgeon: LU Palma; Location: [facility] SAME DAY SURGERY MAIN OR OTHER [...] Alamo MD I can be reached via Filao secure message (preferred) or Pager #[phone] documented in this encounter [facility] 08-28-2023 History and physical note Images from the original note were not included. Internal Medicine Admission History & Physical Patient: George Feliz Jensen, 1970, [id number] Physician: Aric Turner MD, PGY1, Pager #[phone], service Date of face to face patient [...] So he went to see the transplant fertilizer supervisor. He was found elevated Cr and asked [...] Appetite is ok now. Urine is about 7471-2226 ml every day. 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 His [place] kidney disease was noted to be presumed [...] Urinary histoplasmosis - PJP, candid PCR - Janitorial Maintenance Worker transplant ID Acute Kidney Injury [...] BID CAD: non-obstructive CAD on [facility] 2018. - continue aspirin 81mg daily, atorvastatin [...] Pierson, Luisa Steven, Renee Rivera, Daisha Max Supervisor Dry Paste: José Miguel Garnica All Txt: 04/13/2020 (Kidney), [...] results found for: CYCLOSPORIN , CYCLOSPORIN2 , [id number] , CYCLORAND No results found for: SIROLIMUS [...] Rest as above. Kevin Sage MD Pager [phone] documented in this encounter [facility] 08-28-2023 History of Present illness Narrative Images from the original note were not included. 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 Supervisor Dry Paste: Anayeli Burt Date of Liver Transplant: 04/13/2020 (Kidney), 04/13/2020 (Liver) 3 years 4 months post Liver/Kidney Transplant Primary Disease: Hypertensive Nephrosclerosis Transplant Insulation Estimator: Erma Roe/ Daisha Max Primary Care physician: [...] faMOTIdine === None Specified Preferred Lab: [facility] Change in lab frequency / [...] 12 hours. ADDITIONAL INFORMATION: None Specified, [id number] [place] [address] - [address] [facility] [address] [facility] [address] [facility] [address] [place] [address] [id number] [place] [address] [address] [facility] [address] [facility] [address] [facility] [address], [address] [facility] [address] ROS and SCREEN: Chest Pain: negative Cough: [...] PHYSICIAN: I saw George Styles at the [facility] on 08/28/2023. Patient is a 53 y.o. 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 His [place] kidney disease was noted to be presumed [...] GUIDANCE 05/17/2022 Surgeon: Enzo Heart DO; Location: [facility] INTERVENTIONAL RADIOLOGY (VIR) LIVER TRANSPLANT, ORTHOTOPIC N/A 04/12/2020 Laterality: N/A; Surgeon: LU Palma; Location: [facility] SAME DAY SURGERY MAIN OR KIDNEY TRANSPLANT W/O [place] NEPHRECTOMY N/A 04/12/2020 Laterality: N/A; Surgeon: LU Palma; Location: [facility] SAME DAY SURGERY MAIN OR OTHER [...] you have any questions. Steve Latham MD operations research manager Division of Nephrology [facility] documented in this encounter [facility] 08-28-2023 Instructions Mainor Busby RN - 08/28/2023 2:15 PM EDT - Admission for fevers, cough, and night sweats documented in this encounter [facility] 08-19-2023 History of Present illness Narrative [facility] OUTREACH ADVANCED: Call Information: Date and Time of Contact: 08/19/2023 2:52 PM Method of Contact: By Phone Contact Type: Prescriptions Contactor: [facility] OP Contactee: Patient Shipping/Pickup: Medicare B Refill?: No Medication Name: Tacro 0.5mg Delivery Method: Air Delivery Location: Home Signature Required: No Mailing/Pickup Date: 08/25/2023 Shipping Address: [address] [place] [address] [address] Contact Info: Specialty ([place]) [phone] Jakob [phone] [facility] [phone] [place] [phone] Bedside Delivery ([facility]) [phone] documented in this encounter [facility] 06-12-2023 History of Present illness Narrative Images from the original note were not included. George Styles is a 53 y.o. 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 History of Present Illness: Since George was [...] and lab results. Rebeca Gutierrez MSN, RN, STUDY LEAD-BC, CCTN Certified Nurse Practitioner [facility] [address] [facility] [address] documented in this encounter [facility] 06-12-2023 Instructions JEANNA Hess - 06/12/2023 3:00 PM EDT No change in immunosuppression. documented in this encounter [facility] 06-10-2023 History of Present illness Narrative [facility] OUTREACH ADVANCED: Call Information: Method of Contact: By Phone Contact Type: Prescriptions Contactor: [facility] OP Contactee: Patient Contact Outcome: Left message Shipping/Pickup: Medication Name: Mycophenolate sod 180 mg Contact Info: Specialty ([place]) [phone] Jakob [phone] [facility] [phone] [place] [phone] Bedside Delivery ([facility]) [phone] [facility] RX OUTREACH ADVANCED: Call Information: Date and Time of Contact: 06/12/2023 9:43 AM Method of Contact: By Phone Contact Type: Prescriptions Contactor: [facility] OP Contactee: Patient Contact Outcome: Left message and Follow-up Shipping/Pickup: Medicare B Refill?: No Medication Name: Myco 180 Contact Info: Specialty ([place]) [phone] Jakob [phone] [facility] [phone] [place] [phone] Bedside Delivery ([facility]) [phone] [facility] RX OUTREACH ADVANCED: Call Information: Date and Time of Contact: 06/12/2023 10:08 AM Method of Contact: By Phone Contact Type: Prescriptions Contactor: [facility] OP Contactee: Patient Shipping/Pickup: Medicare B Refill?: No Medication Name: Mycophenolate 180mg DR Delivery Method: Air Delivery Location: Home Signature Required: No Mailing/Pickup Date: 06/17/2023 Shipping Address: [address] [place] [address] Contact Info: Specialty ([place]) [phone] Jakob [phone] [facility] [phone] [place] [phone] Bedside Delivery ([facility]) [phone] [facility] History of Present illness Narrative [facility] RX OUTREACH ADVANCED: Call Information: Date and Time of Contact: 03/12/2023 10:34 AM Method of Contact: By Phone Contact Type: Prescriptions Contactor: [facility] OP Contactee: Patient Shipping/Pickup: Medicare B Refill?: No Medication Name: Mycophenoloate sod 360 mg prednisone 5mg Delivery Method: Air Delivery Location: Home Signature Required: No Mailing/Pickup Date: 03/16/2023 Shipping Address: [address] [facility] [address] Contact Info: Specialty ([place]) [phone] [facility] [phone] [facility] [phone] [place] [phone] Bedside Delivery ([facility]) [phone] [facility] RX OUTREACH ADVANCED: Call Information: [...] Mailing/Pickup Date: 03/19/2023 Shipping Address: [address] [facility] [address] Contact Info: Specialty ([place]) [phone] [facility] [phone] [facility] [phone] [place] [phone] Bedside Delivery ([facility]) [phone] documented in this encounter [facility] 03-10-2023 History of Present illness Narrative [facility] RX OUTREACH ADVANCED: Call Information: Date and Time of Contact: 03/10/2023 12:00 PM Method of Contact: By Phone Contact Type: Prescriptions Contactor: [facility] OP Contactee: Patient Contact Outcome: Left message and Call back later Shipping/Pickup: Medication Name: Mycophenolate ; Tacrolimus Contact Info: Specialty ([place]) [phone] [facility] [phone] [facility] [phone] [place] [phone] Bedside Delivery ([facility]) [phone] documented in this encounter [facility] 03-10-2023 History of Present illness Narrative [facility] RX OUTREACH ADVANCED: Call Information: Date and Time of Contact: 03/10/2023 12:00 PM Method of Contact: By Phone Contact Type: Prescriptions Contactor: [facility] OP Contactee: Patient Contact Outcome: Left message and Call back later Shipping/Pickup: Medication Name: Mycophenolate ; Tacrolimus Contact Info: Specialty ([place]) [phone] [facility] [phone] [facility] [phone] [place] [phone] Bedside Delivery ([facility]) [phone] [facility] RX OUTREACH ADVANCED: Call Information: Date and Time of Contact: 03/12/2023 10:32 AM Method of Contact: By Phone Contact Type: Prescriptions Contactor: [facility] OP Contactee: Patient Contact Outcome: Left message Shipping/Pickup: Medication Name: Mycophenolate sodium (MYFORTIC) 180 MG Tab tacrolimus 0.5 mg Contact Info: Specialty ([place]) [phone] [facility] [phone] [facility] [phone] [place] [phone] Bedside Delivery ([facility]) [phone] documented in this encounter [facility] 01-16-2023 History of Present illness Narrative -Referring Provider for today's consult: Daisha Max DO -Primary Care Provider: Zuly Bruno History of Present Illness George Styles is a 52 y.o. male who presents to the [facility] Transplant Hepatology Clinic today for [...] GUIDANCE 05/17/2022 Surgeon: Enzo Heart DO; Location: [facility] INTERVENTIONAL RADIOLOGY (VIR) LIVER TRANSPLANT, ORTHOTOPIC N/A 04/12/2020 Laterality: N/A; Surgeon: LU Palma; Location: [facility] SAME DAY SURGERY MAIN OR KIDNEY TRANSPLANT W/O [place] NEPHRECTOMY N/A 04/12/2020 Laterality: N/A; Surgeon: LU Palma; Location: [facility] SAME DAY SURGERY MAIN OR OTHER [...] 0.3 12/29/2022 Explant Pathology Pathologic Diagnosis A. [place] liver, orthotopic liver transplant resection (1458 gram): [...] A/P with IV contrast (06/27/2022): 1. Both [place] kidneys are atrophic with improvement in right-sided [...] frequent nighttime urination, etc). Daisha Max DO Welding Equipment Repairer Gastroenterology, Hepatology and Nutrition [facility] Pager: [phone] Images from the original note were not included. 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 Supervisor Dry Paste: Anayeli Burt Date of Liver Transplant: 04/13/2020 (Kidney), 04/13/2020 (Liver) 2 years, 8 months post Liver/Kidney Transplant Primary Disease: Hypertensive Nephrosclerosis Transplant Insulation Estimator: Steve Latham Primary Care physician: Zuly Bruno [...] levels: No results found for: CYCLOSPORIN, CYCLOSPORIN2, [id number], CYCLORAND No components found for: CYCLOSPORINE, 2HR [...] hours. ADDITIONAL INFORMATION: None Specified [id number] [place] [address] - [address] [facility] [address] [facility] [address] [facility] [address] [facility], [address] [place] [address] [id number] [place] [address] [address] [facility] [address] [place] [address] [facility], [address] [place] [address] ROS and SCREEN: Chest Pain: negative Cough: [...] PHYSICIAN: documented in this encounter [facility] 01-16-2023 Instructions José Miguel Garnica RN - 01/16/2023 9:40 AM EST - Labs Every 2 months - Discuss night time urination with your PCP - Schedule Colonoscopy through PCP - Follow up in 1 year documented in this encounter [facility] 09-10-2022 History of Present illness Narrative UROLOGY CLINIC NOTE Reason for Appointment: BPH with LUTS HPI: Patient is a 52 yo male with a DDRT to the [facility] in 2019. Nephrostomy tube placed 05/17/22 [...] and no hydronephrosis. Some reflux up the [place] right ureter but good drainage of both transplant and [place] ureter to the bladder. Nephrostomy tube was [...] transplant, orthotopic (N/A, 04/12/2020); kidney transplant w/o [place] nephrectomy (N/A, 04/12/2020); and placement nephrostomy catheter [...] Negative for , diarrhea, constipation Genitourinary: See NISQUALLY Neurological: Negative for headaches. Lymph/Heme: Negative for [...] x 4, Normal strength. No edema. Skin: [place], warm, and dry. There are no rashes [...] and no hydronephrosis. Some reflux up the [place] right ureter but good drainage of both transplant and [place] ureter to the bladder. Nephrostomy tube was [...] 09/10/22 documented in this encounter [facility] 07-07-2022 History of Present illness [...] assisted off the table and escorted to gas scrubber operator where they made a follow up. [...] to have transplant ureter with anastomosis to [place] right ureter. Nephrostogram without filling defects and no hydronephrosis. Some reflux up the [place] right ureter but good drainage of both transplant and [place] ureter to the bladder. Nephrostomy tube was [...] 07/07/22 documented in this encounter [facility] 06-27-2022 History of Present illness [...] transplant, orthotopic (N/A, 04/12/2020); kidney transplant w/o [place] nephrectomy (N/A, 04/12/2020); and placement nephrostomy catheter [...] Negative for , diarrhea, constipation Genitourinary: See NISQUALLY Neurological: Negative for headaches. Lymph/Heme: Negative for [...] x 4, Normal strength. No edema. Skin: [place], warm, and dry. There are no rashes [...] yo male with a DDRT to the [facility] in 2019. Nephrostomy tube placed 05/17 [...] if needed. documented in this encounter [facility] 06-27-2022 History and physical note Patient was evaluated in clinic as a nurse visit. Please refer to Rena Brewster's note. [facility] Work Phone: 06-27-2022 History and physical note Patient was evaluated in clinic as a nurse visit. Please refer to Rena Brewster's note. documented in this encounter [facility] 06-27-2022 History of Present illness Narrative TEACHING REGARDING TX NEPH COMPLETED-NEPH TUBE SITE DRY AND INTACT-CLEAR YELLOW URINE IN THE BAG-INSTRUCTED ABOUT FLUSHING, BAG CHANGING ETC. NUMEROUS QUESTIONS ASKED AND ANSWERED-VERBALIZED UNDERSTANDING documented in this encounter [facility] 06-18-2022 Note EXAMINATION: CT ABD/ PELVIS WO [...] mass or enlargement. KIDNEYS: Marked atrophy of [place] kidneys. Transplant right pelvic kidney with percutaneous [...] authenticated by: MÓNICA JIMENEZ Date: 2022-06-18 13:53 [facility] 06-12-2022 Instructions Anayeli Christianson RN - 06/12/2022 3:21 PM EDT Do not take apart/disrupt nephrostomy tube system. Call Interventional Radiology and/or on-call transplant nurse [phone] for instruction if need to flush (clot or decreased flow). Take cipro 500mg, one tablet, twice per day for 14 days documented in this encounter [facility] 06-12-2022 History of Present illness Narrative Images from the original note were not included. 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 Supervisor Dry Paste: Anayeli Burt Date of Liver Transplant: 04/13/2020 (Kidney), 04/13/2020 (Liver) 2 year, 1 months post Liver/Kidney Transplant Primary Disease: Hypertensive Nephrosclerosis Transplant Insulation Estimator: Steve Latham Primary Care physician: Zuly Bruno [...] kidney stone in renal graft at [facility]. Percutaneous Neph Tube placed Images from [...] PREFERRED LAB AND PHARMACY: None Specified [facility] [place] [address] - [address] [address] [facility] [address] [facility] [address] [id number] [place] [address] [address] [facility] [address] [facility] [address] [facility] Jakob [address], [address] [facility] [address] ROS and SCREEN: Chest Pain: negative Cough: negative SOB: negative Abd Pain: negative Nausea: positive Vomiting: negative Diarrhea: negative Constipation: negative Dysuria: positive Edema: negative Tremors: negative Headaches: negative Wound issues: negative Pt has neph tube w clear yellow urine. States he had a small clot that he dislodged QUESTIONS OR CONCERNS TO ADDRESS WITH PHYSICIAN: I saw George Styles at the [facility] on 06/12/2022. Patient is a 52 y.o. 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 His [place] kidney disease was noted to be presumed [...] GUIDANCE 05/17/2022 Surgeon: Enzo Heart DO; Location: [facility] INTERVENTIONAL RADIOLOGY (VIR) LIVER TRANSPLANT, ORTHOTOPIC N/A 04/12/2020 Laterality: N/A; Surgeon: LU Palma; Location: [facility] SAME DAY SURGERY MAIN OR KIDNEY TRANSPLANT W/O [place] NEPHRECTOMY N/A 04/12/2020 Laterality: N/A; Surgeon: LU Palma; Location: [facility] SAME DAY SURGERY MAIN OR OTHER [...] you have any questions. Steve Latham MD operations research manager Division of Nephrology [facility] documented in this encounter [facility] 06-04-2022 Instructions TATI GROVE - 06/04/2022 11:04 AM EDT Thank you for joining us for your neph tube follow up. We recommend routine exchange every 8-10 weeks. Please reach out at [phone] when it is time to set your next routine exchange. Thank you IR clinic documented in this encounter [facility] 06-04-2022 History of Present illness Narrative Met [...] understanding. documented in this encounter [facility] 05-20-2022 Note Formatting of this n ote [...] his discharge. Leon Cook RN [facility] 05-20-2022 Miscellaneous Notes Patient discharged. AVS printed [...] provide teaching before his discharge Leon RN #[id number] Leon Cook RN Afternoon assessment completed at [...] Rounds/Family Conf Outcome: Ongoing Discussed with [facility] re: possible urine culture performed [...] with questions. Evan Byrd MD Urology, PGY-2 #[id number] I certify that this patient requires inpatient [...] WDL Jose Score: 20 LDA Added:N Kallie Salomón, RN documented in this encounter [facility] 05-20-2022 Note Formatting of this n ote [...] care. Outcome: Adequate for Discharge [facility] 05-20-2022 Note Formatting of this n ote might be different from the original. Tung Dillard MD R10 Rm 1006 Jensen George Please let's have a clear order on how the nephrostomy site dressing need to be changed when the patient goes home so we provide teaching before his discharge Leon RN #[id number] Leon Cook RN [facility] 05-20-2022 History of Present illness Narrative Images from the original note were not included. [facility] Note: [facility] the following [facility] prescription(s): Medication reconciliation was completed with comparison to discharge reconciliation report. The prescription(s) will be delivered to the patient's bedside on 05/20/22. Total cost is $0. Yanira Her RPh,PharmD Specialty ([place]) [phone] [facility] [phone] [facility] [phone] [place] [phone] [place] [phone] Bedside Delivery ([facility]) [phone] Attending I saw George Styles at the [facility] on 05/19/2022. I saw and independently [...] Daily Progress Note Patient: George Styles, 1970, [id number] Physician: Liam Julian MD, PGY-3, Pager #[phone], [id number] Subjective/Interval History: No acute events overnight. Passed [...] MD (Peggy) Division of Hospital Medicine Pager [phone] Attending I saw George Styles at the [facility] on 05/18/2022. I saw and independently [...] capsule 0.4 mg 0.4 mg Oral Daily Evna Bennett MD 0.4 mg at 05/17/22 0947 [...] Daily Progress Note Patient: George Styles, 1970, [id number] Physician: Nishant Gamez MD, PGY2, Pager #[phone], [id number] Subjective/Interval History: Nephrostomy tube placed yesterday with a lot of urine output and significant improvement in creatinine. Objective: Vitals: 05/18/22 0410 BP: 190/86 Pulse: 83 Resp: 18 Temp: 98.4 F (36.9 C) O2 Device: room air (05/18/22 0410) Flow (L/min): 3 (05/17/22 9992) Gen: NAD, well-appearing HENT: NCAT, EOMI, MMM [...] to have stablized for this to be loan servicing representative. Daya (Aggie Saldana MD Division of Hospital Medicine Pager [phone] Internal Medicine Daily Progress Note Patient: George Styles, 1970, [id number] Physician: Nishant Gamez MD, PGY2, Pager #[phone], [id number] Subjective/Interval History: Worsening creatinine this morning with [...] Saldana MD Division of Hospital Medicine Pager [phone] Attending I saw George Styles at the [facility] on 05/17/2022. I saw and independently [...] need to pursue other causes of ARF. Mxai Pringle MD Admission Screening for Discharge Planning Patient is here for FAYE and renal stone in patient with Hx of Kidney/Liver transplant 04/12/2020. Urology recommended empiric abx until urine culture returns. After review of chart and discussion with treatment team, Cutting And Printing Machine Operator has not identified needs at this [...] follow. Introduced self and role of the chopper feeder to patient. Provided emotional and spiritual support and the patient responded by sharing their experience and discussed the following: - Spirituality/Christianity Affiliation: As a kid attended [employer] but not a strong identity now - Family support - pt's brothers live close by Sandstone Inspector Repairer provided: - Supportive presence - Active listening - Validation of feelings/emotions Patient encouraged to request a chopper feeder as needed. Chaplains are available in-house 24 hours a day and 7 days a week. For urgent matters in [facility], please page [phone]. If the request is not urgent, please enter a consult. Consults are responded to within 24 hours. Angie Singh Mdiv, BCC Burn Unit and Transplant [place] [address] Sandstone Inspector Repairer [facility] Sandstone Inspector Repairer Kirk [phone] [email or web address] 22/06 [facility] Pager [phone] 22/06 Pager ,[facility], and [place] 1500 22/06 David Pager [phone] 05/16/22 1129 Clinical Encounter Type Visited With Patient Visit Type Introduction Pastoral Time Spent 15 min Referral Other (See Comment) (Rounding) Spiritual Assessment Spiritual Observation Spirituality helpful;Identifies as (see comment) (Yazdanism) Emotional Observation Coping well Hope Observation Hopeful and accepting Support Observation By Family Interventions Provided Active listening;Supportive presence Facilitated Verbalization of feelings;Sharing of life story;Identifying support system Explored Expectations Social Work Faculty Member Education Social Work Faculty Member Service Available Yes Educated Patient Outcomes Patient Outcomes Articulated purpose/meaning Plan of Care Continue Visiting PRN Internal Medicine Daily Progress Note Patient: George Styles, 1970, [id number] Physician: Nishant Gamez MD, PGY2, Pager #[phone], [id number] Subjective/Interval History: Overall feeling okay this morning. 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 [...] Supervision Transfer Assessment: Sit to Stand Transfer [place] Level: Sit->Stand: independent Skilled Intervention/Details: Sit->Stand: x1 from EOB Stand to Sit Transfer [place] Level: Stand->Sit: supervision Assistive Device: Stand->Sit: armed chair Skilled Rationale: Controlled descent for sitting, Verbal cues Gait/Functional Mobility: Gait Assessment [place] Level: Gait: supervision Assistive Device: Gait: gait belt Gait Distance (feet): 200 Gait Deviations Identified: decreased grace, decreased step length, decreased stride length Gait Skilled Rationale: verbal, upright posture Skilled Intervention/Details - Gait: Pt with steady gait without LOB or complaints of SOB. Stairs: Stairs Assessment [place] Level: Stair Negotiation: stand-by assist Assistive Device: Stair Negotiation: gait belt, left rail (ascending) Number of stairs: 9 Stairs Skilled Rationale: reciprocal pattern Outcome Score(s): CURRENT [facility] Basic Mobility Inpatient Short Form Turning over in bed: 4 - No Assistance Sitting/standing from chair: 4 - No Assistance Moving from lying on back to sittin - No Assistance Moving to and from bed to chair: 4 - No Assistance Walk in hospital room: 3 - A Little Assistance Climbing 3-5 steps with a railin - A Little Assistance CURRENT [facility] Mobility Raw Score: 22 CURRENT [facility] Mobility Functional Limitation/Modifier: 20.91% Currently Impaired [...] reported no concerns with discharging home with florissant support. 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 IADL History IADLs: independent Primary Language: Gibraltarian Home Management Skills: independent Meal Prep Responsibility: [...] Assessment: Transfer Assessment: Sit to Stand Transfer [place] Level: Sit->Stand: independent Skilled Rationale: Cues for increased safety Skilled Intervention/Details: Sit->Stand: x1 EOB Stand to Sit Transfer [place] Level: Stand->Sit: supervision Assistive Device: Stand->Sit: gait belt, armed chair Skilled Rationale: Verbal cues, Controlled descent for sitting, Cues for increased safety Skilled Intervention/Details: Stand->Sit: cues for hand placement and controlled descent Functional Mobility: Functional Mobility [place] Level: Functional Mobility/Gait: stand-by assist Assistive Device: Functional Mobility/Gait: gait belt Functional Mobility Distance: Distance needed for limited community mobility Functional Mobility Deficits: Activity tolerance, Balance, Decreased step length, Generalized weakness Functional Mobility Skilled Rationale: Verbal cues, Facilitate postural control Skilled Intervention/Details - Functional Mobility/Gait: cues for upright posture Outcome Score(s): CURRENT [facility] Daily Activity Inpatient Short Form Putting on/Taking Off Lower Body Clothin - A Little Assistance Bathin - A Little Assistance Toiletin - A Little Assistance Putting on/Taking Off Upper Body Clothin - No Assistance Groomin - No Assistance Eatin - No Assistance CURRENT [facility] Activity Raw Score: 21 CURRENT [facility] Activity Functional Limitation/Modifier: 32.79% Currently Impaired [...] DAY SURGERY MAIN OR KIDNEY TRANSPLANT W/O [place] NEPHRECTOMY N/A 04/12/2020 Laterality: N/A; Surgeon: LU [...] by: Mel Norman OT, OTR/L License #: [id number] pager # [phone] 05/20/2022 Upon discontinuation of Acute Care Occupational Therapy Services or patient discharge from the hospital this note represents the current Occupational Therapy Discharge Summary. documented in this encounter [facility] 05-20-2022 Hospital course Narrative Discharge [...] during his recent hospital stay at [facility]. As you may know, George Styles, [...] Saldana MD Division of Hospital Medicine p: [phone] f: [phone] CONSULTS DURING ADMISSION: IP CONSULT TO SURGERY - UROLOGY IP CONSULT TO NEPHROLOGY - TRANSPLANT (MEDICINE) IP CONSULT TO INTERVENTIONAL RADIOLOGY IP CONSULT TO PHYSICAL THERAPY IP CONSULT TO OCCUPATIONAL THERAPY IP CONSULT TO PHARMACY BEDSIDE DISCHARGE MED DELIVERY IMAGING / PROCEDURES / RESULTS: Should you require further information or copies of results or reports please contact Medical Information Management @ [phone] LABS AT TIME OF DISCHARGE: Lab Results [...] [address] / [place] [address] MEDICATIONS: Discharge Orders CT ABDOMEN/PELVIS WITHOUT CONTRAST [...] Generic drug: docusate Follow-up: Zuly Bruno, MAINTENANCE LEADER [address] [facility] [address] Schedule an appointment as soon as possible for a visit Follow-up appointment with your, primary care physician within 7-10 days, after discharge. [address] [facility] [address] Follow up The department of urology will [...] Dept Phone 06/04/2022 10:40 AM IR CLINIC [facility] Interventional Radiology Clinic [phone] 06/27/2022 1:30 PM [facility] Department of Radiology Arrive at: Arrive to First Floor Registration Desk [phone] 06/27/2022 2:40 PM Ryan Yepez [facility] Arrive at: Arrive to 2nd Floor, Registration [address] 10/31/2022 1:00 PM Steve Lahtam [facility] Transplant [facility] [phone] 01/16/2023 9:40 AM TRANSPLANT HEPATOLOGY 3, [facility] Transplant [facility] [phone] Associated attestation - Daya Saldana MD - [...] Saldana MD Division of Hospital Medicine Pager [phone] documented in this encounter [facility] 05-20-2022 Hospital Discharge instructions Giulia [...] be changed by Interventional Radiology. Please call [phone] to schedule this appointment and with any questions or concerns you may have regarding the nephrostomy tube. If you have questions or concerns, please call Interventional Radiology at SOMEONE FROM INTERVENTIONAL RADIOLOGY WILL CALL YOU FOR A FOLLOW UP IN THE IR CLINIC Giulia Cavazos RN Nurse Coordinator Interventional Radiology Interventional Radiology Outpatient scheduling documented in this encounter [facility] 05-19-2022 Note Formatting of this n ote [...] Ongoing Goal: Interdisciplinary Rounds/Family Conf Outcome: [facility] Note Formatting of this n ote might be different from the original. Discussed with [facility] re: possible urine culture performed at their facility. However, based on urinalysis completed at that time, which was only notable for hematuria, culture was not performed and sample no longer feasible for culture. Liam Julian MD Internal Medicine/Pediatrics, PGY-3 [facility] Note Formatting of this n ote might be different from the original. 2003: Filao message sent to Dr Justyn Wen, regarding patient passing a small kidney stone, about the size of pea. notified. Stone left in strainer in pt bathroom. 499: IHIS message sent to Dr Justyn Wen, regarding pt BP 174/77. [facility] 05-18-2022 Note Formatting of this n ote [...] discharge/transition of care. Outcome: Ongoing [facility] 05-18-2022 Note Formatting of this n ote [...] hyponatremic, NS should instead be used. T [facility] Work Phone: 05-18-2022 Note Formatting of this n ote might be different from the original. IHIS chat sent to Dr Tray Quintana, regarding pt BP 190/86. Pt complaining of pain at site of neph tube. PRN pain medication given per order parameters. Pt denies any other symptoms at this time. notified and aware. [facility] 05-17-2022 Note Formatting of this n ote might be different from the original. At 0900, I rounded with Dr. Gamez and Dr. Saldana. At that time I checked Mr. Styles's vital signs. His pulse oximeter was low and he was tachypneic. Verbal order at bedside to put nasal cannula on starting at 2liters oxygen and to provide incentive spirometer. [facility] 05-17-2022 Note Formatting of this n ote might be different from the original. Interventional Radiology procedure completed with IR Attending Dr. Heart / Dr. Le of percutaneous right nephrostomy tube placement transplant kidney 10.2 Fr Griffin acosta Pt tolerated procedure with moderate sedation local numbing agent . Transported to inpatient after phase I recovery. Post procedure orders in place. [facility] 05-16-2022 Note Formatting of this n ote might be different from the original. At 1530, I text tung Gomez MD that patient has only had 25ml urine output in matias this afternoon. T [facility] 05-16-2022 Note Formatting of this n ote [...] with questions. Evan Byrd MD Urology, PGY-2 #[id number] [facility] Work Phone: 05-16-2022 Note Formatting of this n ote might be different from the original. I certify that this patient requires inpatient services at this time. I anticipate the expected length of stay will include at least two midnights. Inpatient services are due to the following medical concerns Obstructive kidney stone. Plans for post hospitalization care will be discharge to home. [facility] 05-16-2022 Consult note Associated Order (s): IP CONSULT TO NEPHROLOGY - TRANSPLANT (MEDICINE) I saw George Styles at the [facility] on 05/16/2022. Reason for Consultation: kidney [...] he was given flomax and sent home. [place] better but noticed more pain and decreased [...] and recommendations. Maxi Pringle MD [facility] Work Phone: 05-16-2022 Consult note Associated Order (s): IP CONSULT TO NEPHROLOGY - TRANSPLANT (MEDICINE) I saw George Styles at the [facility] on 05/16/2022. Reason for Consultation: kidney [...] he was given flomax and sent home. [place] better but noticed more pain and decreased [...] states he went to his local ED [place] and he was put on Flomax and he did improve. Pt states last night he was unable to void with severe right sided abd pain. Pt states nausea and no vomiting or fevers. Pt states he went back to [facility] ED at 0100 and they placed a [...] orthotopic (N/A, 04/12/2020); and kidney transplant w/o [place] nephrectomy (N/A, 04/12/2020). 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 The [place] kidneys are progressively atrophic bilaterally compared to [...] of 06/14/2020 are no longer present. The [place] distal right ureter is decompressed beyond this [...] with surgical history for renal graft and [place] right urinary drainage, as a discrete ureteroneocystostomy is not identified, and the graft may be draining via a ureteroureterostomy. Urology consultation recommended. 3. The [place] kidneys are bilaterally atrophic, with right renal sinus calcifications consistent with nonobstructing right [place] renal calculi up to 6 mm. Normal [...] PGY-3, Department of Urologic Surgery Pager #: [phone] Associated attestation - Ryan Yepez MD - [...] flomax documented in this encounter [facility] 05-16-2022 Note Formatting of this [...] supported Trust Relationship/Rapport: care explained choices provided [facility] Note Formatting of this n ote might be different from the original. On admission to R10, a dual RN initial assessment of skin condition was performed by Kallie Lorenzana RN and Sheri Arguelles RN. Skin Assessment: WDL Jose Score: 20 LDA Added:N Kallie Lorenzana RN [facility] 05-15-2022 Emergency department Note Report given to Kallie RN at 10 [facility] 05-15-2022 Emergency department Note Report given to [...] diagnosed Thursday and was sent home with [facility]. He went back to that ED [...] 04/12/2020 Laterality: N/A; Surgeon: LU Palma; Location: [facility] SAME DAY SURGERY MAIN OR KIDNEY TRANSPLANT W/O [place] NEPHRECTOMY N/A 04/12/2020 Laterality: N/A; Surgeon: LU Palma; Location: [facility] SAME DAY SURGERY MAIN OR OTHER [...] MD Resident 05/15/222030 Pt arrives from [facility] with kidney stones. Pt states he had right lower abd pain and right flank pain with blood in his urine since Thursday. Pt states he went to his local ED [place] and he was put on Flomax and he did improve. Pt states last night he was unable to void with severe right sided abd pain. Pt states nausea and no vomiting or fevers. Pt states he went back to [place] ED at 0100 and they placed a matias and CT scan completed and multiple kidney stones noted. [facility] had liver and kidney transplant in 03/2020. documented in this encounter [facility] 05-15-2022 History and physical note Internal Medicine Admission History & Physical Patient: George Styles, 1970, [id number] Physician: Evan Bennett MD, PGY1, Pager #[phone], 4 service Date of face to face [...] DAY SURGERY MAIN OR KIDNEY TRANSPLANT W/O [place] NEPHRECTOMY N/A 04/12/2020 Laterality: N/A; Surgeon: LU [...] erythema: Skin: No jaundice or rash Neuro: slider assembler 3-7, 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 Strength grossly [...] dilation of the calyces may represent narrowing/partial [id number] ofthe ureter and mild hydronephrosis or sequela [...] Division of Hospital Medicine [phone] [facility] Work Phone: 05-15-2022 History and physical note Internal Medicine Admission History & Physical Patient: George Styles, 1970, [id number] Physician: Evan Bennett MD, PGY1, Pager #[phone], GM 4 service Date of face to [...] DAY SURGERY MAIN OR KIDNEY TRANSPLANT W/O [place] NEPHRECTOMY N/A 04/12/2020 Laterality: N/A; Surgeon: LU [...] erythema: Skin: No jaundice or rash Neuro: slider assembler 3-7, 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 Strength grossly [...] dilation of the calyces may represent narrowing/partial [id number] ofthe ureter and mild hydronephrosis or sequela ofrecent kidney transplat. 3. Unremarkable boweL Electronically enthentiental by. MÓNICA JIMENEZ Date: 2020-06-14 12:25 Impression/Plan: George Styles [...] [id number] documented in this encounter [facility] 05-15-2022 Emergency department Note Bladder scan with Dr Villatoro at bedside, 14ml noted [facility] 05-15-2022 Consult note Associated Order [...] states he went to his local ED [place] and he was put on Flomax and he did improve. Pt states last night he was unable to void with severe right sided abd pain. Pt states nausea and no vomiting or fevers. Pt states he went back to [place] ED at 0100 and they placed a [...] orthotopic (N/A, 04/12/2020); and kidney transplant w/o [place] nephrectomy (N/A, 04/12/2020). 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 The [place] kidneys are progressively atrophic bilaterally compared to [...] of 06/14/2020 are no longer present. The [place] distal right ureter is decompressed beyond this [...] with surgical history for renal graft and [place] right urinary drainage, as a discrete ureteroneocystostomy is not identified, and the graft may be draining via a ureteroureterostomy. Urology consultation recommended. 3. The [place] kidneys are bilaterally atrophic, with right renal sinus calcifications consistent with nonobstructing right [place] renal calculi up to 6 mm. Normal [...] PGY-3, Department of Urologic Surgery Pager #: [phone] Associated attestation - Ryan Yepez MD - [...] surgical intervention --may continue flomax [facility] Work Phone: 05-15-2022 Emergency department Note Advised Dr Schneider concerning no urine output via matias catheter. [facility] 05-15-2022 Physician Emergency department Note [...] plan of care. Gian Villatoro MD 05/15/222003 [facility] Work Phone: 05-15-[address] Schneider made aware of only 30 ml urine via matias since arrival to room. [facility] 05-15-2022 Physician Emergency department Note dEPARTMENT of [...] 04/12/2020 Laterality: N/A; Surgeon: LU Palma; Location: [facility] SAME DAY SURGERY MAIN OR KIDNEY TRANSPLANT W/O [place] NEPHRECTOMY N/A 04/12/2020 Laterality: N/A; Surgeon: LU Palma; Location: [facility] SAME DAY SURGERY MAIN OR OTHER [...] Matt Schneider MD Resident 05/15/222030 [facility] Work Phone: 05-15-2022 Emergency department Note Pt arrives from [facility] with kidney stones. Pt states he had right lower abd pain and right flank pain with blood in his urine since Thursday. Pt states he went to his local ED [facility] and he was put on Flomax and he did improve. Pt states last night he was unable to void with severe right sided abd pain. Pt states nausea and no vomiting or fevers. Pt states he went back to [facility] ED at 0100 and they placed a matias and CT scan completed and multiple kidney stones noted. [facility] History of [...] Required: No Mailing/Pickup Date: 03/17/2022 Shipping Address: [address] [place] [address] Contact Info: Specialty ([place]) [phone] [facility] [phone] [facility] [phone] David [phone] Bedside Delivery ([facility]) [phone] documented in this encounter [facility] 06-14-2021 History of Present illness Narrative [facility] [...] Goal Progress: Satisfactory Contact Info: Specialty ([place]) [phone] Jakob [phone] [facility] [phone] David [phone] Bedside Delivery ([facility]) [phone] [facility] OP RX OUTREACH: Call Information: Date [...] Location: Home Signature Required: Yes Shipping Address: [address] [place] [address] Contact Info: Specialty ([place]) [phone] Jakob [phone] [facility] [phone] David [phone] Bedside Delivery ([facility]) [phone] documented in this encounter [facility] Evaluation note Diagnosis FAYE (acute kidney injury)- Primary Acute kidney failure, unspecified Hydronephrosis due to obstruction of ureteral orifice Hydronephrosis due to obstruction of ureteral orifice FAYE (acute kidney injury) Acute kidney failure, unspecified [facility] Diagnosis Follow-up exam- Primary Unspecified follow-up examination [facility] Diagnosis Immunosuppressed status- Primary Unspecified disorder of immune mechanism Kidney replaced by transplant Liver replaced by transplant Abnormal blood chemistry Other abnormal blood chemistry High risk medication use Encounter for long-term (current) use of other medications Aftercare following organ transplant Liver transplant recipient [facility] Diagnosis Attention to nephrostomy- Primary [facility] Diagnosis Other hydronephrosis- Primary [facility]* Diagnosis FAYE (acute kidney injury) Acute kidney failure, unspecified [facility] Diagnosis Other hydronephrosis- Primary -donor kidney transplant recipient Kidney replaced by transplant [facility] Diagnosis Other hydronephrosis [facility] Diagnosis 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) Encounter for screening for malignant neoplasm of prostate Special screening for malignant neoplasm of prostate [facility] Diagnosis Abnormal blood chemistry- Primary Other abnormal blood chemistry Liver transplant recipient Kidney replaced by transplant Immunosuppressed status Unspecified disorder of immune mechanism Aftercare following organ transplant [facility] Diagnosis Kidney replaced by transplant- Primary [facility] Diagnosis Immunosuppressed status- Primary Unspecified disorder of immune mechanism Kidney replaced by transplant Aftercare following organ transplant High risk medication use Encounter for long-term (current) use of other medications Other general symptoms and signs Abnormal blood chemistry Other abnormal blood chemistry Hypertension secondary to other renal disorders [facility] Diagnosis Histoplasmosis- Primary Histoplasmosis, unspecified without [...] unspecified [facility] Diagnosis Bilateral lower extremity edema- Primary 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) Atherosclerosis 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) Atherosclerosis of aorta Obesity (BMI 30-39.9) DARLENE (obstructive sleep apnea) Obstructive sleep apnea (adult) (pediatric) Tremor Abnormal involuntary movements Immunocompromised (CMS/HCC) Unspecified immunity deficiency Primary hypertension (CMS/HCC) Unspecified essential hypertension Shortness of breath documented in this encounter [facility]* Diagnosis Pleural effusion on [...] examination [facility] Diagnosis Heart failure, diastolic, acute- Primary Acute diastolic heart failure [facility]* Diagnosis Liver lesion- Primary Other specified disorders of liver Liver transplant recipient High risk medication use Encounter for long-term (current) use of other medications Therapeutic drug monitoring Encounter for therapeutic drug monitoring Immunocompromised Unspecified immunity deficiency [facility] Diagnosis Kidney replaced by transplant- Primary [facility]ative[facility] Consultation (Routine) - New Request Specialty Diagnoses / Procedures Referred By Deni edwards Referred To Contact Interventional Radiology Diagnoses Hydronephrosis due to obstruction of ureteral orifice Daya Saldana MD [address] [place] [address] Referral ID Status Reason Start Date Expiration Date V isits Requested Visits Authorized [id number] New Request 05/18/2022 06/12/2023 1 1 * Radiology (Emergency) - New Request Specialty Diagnoses / Procedures Referred By Socorroac t Referred To Contact Procedures US RENAL TRANSPLANT SCAN Daya Saldana MD [address] [place] [address] Referral ID Status Reason Start Date Expiration Date V isits Requested Visits Authorized [id number] New Request 05/16/2022 06/10/2023 1 1 * Consultation (Routine) - New Request Specialty Diagnoses / Procedures Referred By Deni t Referred To Contact Urology Diagnoses FAYE (acute kidney injury) Ryan Yepez MD [address] [place] [address] [address] [place] [address] Referral ID Status Reason Start Date Expiration Date V isits Requested Visits Authorized [id number] New Request 05/16/2022 06/10/2023 1 1 * MRI/CAT Scan (Routine) - New Request Specialty Diagnoses / Procedures Referred By Deni edwards Referred To Contact Diagnoses FAYE (acute kidney injury) Procedures CT ABDOMEN/PELVIS WITHOUT CONTRAST CHG CT SCAN,ABDOMENT AND PELVIS,W/O CONTRAST Ryan Yepez MD [address] [place] [address] [address] [place] [address] Referral ID Status Reason Start Date Expiration Date V isits Requested Visits Authorized [id number] New Request 05/16/2022 06/10/2023 1 1 * (Routine) - Pending Review Specialty Diagnoses / Procedures Referred By Deni t Referred To Contact Procedures PLATELET MONITORING PER PROTOCOL Daya Saldana MD [address] [place] [address] Referral ID Status Reason Start Date Expiration Date V isits Requested Visits Authorized [id number] Pending Review 05/15/2022 06/09/2023 1 1 * (Routine) - Pending Review Specialty Diagnoses / Procedures Referred By Contac t Referred To Contact Procedures DVT/VTE RISK ASSESSMENT Daya Saldana MD [address] [place] [address] Referral ID Status Reason Start Date Expiration Date V isits Requested Visits Authorized [id number] Pending Review 05/15/2022 06/09/2023 1 1 * (Routine) Specialty Diagnoses / Procedures Referred By Contac t Referred To Contact Evan Bennett MD [address] [place] [address] Referral ID Status Reason Start Date Expiration Date Visits Re quested Visits Authorized * (Routine) Specialty Diagnoses / Procedures Referred By Contac t Referred To Contact Evan Bennett MD [address] [place] [address] Referral ID Status Reason Start Date Expiration Date Visits Re quested Visits Authorized [facility] for referral (narrative)* Consultation (Routine) - New Request Specialty Diagnoses / Procedures Referred By Contac t Referred To Contact Sleep Medicine Diagnoses Hypoxia Kevin Sage MD [address] [place] [address] Referral ID Status Reason Start Date Expiration Date V isits Requested Visits Authorized [id number] New Request 09/10/2023 10/04/2024 1 1 * MRI/CAT Scan (Routine) - New Request Specialty Diagnoses / Procedures Referred By Contac t Referred To Contact Diagnoses Histoplasmosis Procedures CT CHEST WITHOUT CONTRAST CHG DIAGNOSTIC COMPUTED TOMOGRAPHY THORAX W/O ROBERTT Kevin Sage MD [address] [place] [address] Referral ID Status Reason Start Date Expiration Date V isits Requested Visits Authorized [id number] New Request 09/10/2023 10/04/2024 1 1 * Radiology (Routine) - New Request Specialty Diagnoses / Procedures Referred By Contac t Referred To Contact Procedures US RENAL TRANSPLANT SCAN Steve Latham MBBS [address] [place] [address] Referral ID Status Reason Start Date Expiration Date V isits Requested Visits Authorized [id number] New Request 08/29/2023 09/22/2024 1 1 * (Routine) - New Request Specialty Diagnoses / Procedures Referred By Contac t Referred To Contact Procedures PLATELET MONITORING PER PROTOCOL Steve Latham MBBS [address] [place] [address] Referral ID Status Reason Start Date Expiration Date V isits Requested Visits Authorized [id number] New Request 08/28/2023 09/21/2024 1 1 * (Routine) - New Request Specialty Diagnoses / Procedures Referred By Contac t Referred To Contact Procedures DVT/VTE RISK ASSESSMENT Steve Latham MBBS [address] [place] [address] Referral ID Status Reason Start Date Expiration Date V isits Requested Visits Authorized [id number] New Request 08/28/2023 09/21/2024 1 1 [facility] Instructions * Patient Instructions - Christin Elizabeth APRN-CNP - 10/19/2018 9:21 AM EST You should take an extra dose of the lactulose as needed so that you are having 3-4 bowel movementsdaily. You should start the chemical dependency counseling as soon as possible. If you have questions, call the transplant delinquency prevention social worker Fidelina Pierson. in this encounter* Patient Instructions - Sophie Cary RN - 10/12/2018 11:09 AM EST You have been seen in the pre-transplant evaluation clinic by Dr. Restrepo and Sophie Cary. Sophie Cary is your pre-campus coordinator she can be reached at [phone] at any time for questions during the pre-transplant process. Your evaluation is complete pendin. Abdominal ultrasound. 2. 6 minute walk test. 3. Cardiology evaluation. Additionally, your mushroom picker will recommend testing to screen for coronary artery disease. This will be scheduled for you after your cardiology visit. 4. Your coordinator will be requesting record from your last dental visit, colonoscopy and EGD. 5. Please work to complete social work recommendations. Your delinquency prevention social worker will be contacting you to follow up on your progress. 6. You have also been referred for a kidney transplant. An appointment will be scheduled for you sari evaluated in the kidney transplant clinic after you have satisfied requirements dictated by yourValue and [employer] company. Once your testing is complete, [...] ___ Other Name MRN * Christin Elizabeth, STUDY LEAD-MAINTENANCE LEADER - 10/19/2018 9:00 AM EST Formatting of this note may be different from the original. History of Present Illness: Chief Complaint Patient presents with Follow-up Cirrhosis George Sytles is a 48 y.o. male who presents to the [facility] today regarding his diagnosis/chief complaint(s) of Cirrhosis secondary to ETOH, with ESRD follows with Dr. Orr. Currently undergoing evaluation for liver/kidney transplant. Has been seen in transplant clinic for eval. Still undergoing pre testing. Diagnosed in April 2018. Last drink was immediately prior to hospital admission in [place] for ACLF. Hospital course notable for ARF [...] kidney transplant evaluation. Pt was AOx3. Transplant Tractor Trailer Technician role/function was explained and reviewed. The patient was informed that the results of this assessment will be shared with the referring provider and the transplant team. The patient verbalized understanding of this information. The [facility] psychosocial assessment consent form has been explained to patient and has been signed. Pt is completing this evaluation with brother (David) in the Outpatient setting. SWK educated pt on the benefits of completing/filing advanced directives and resources were offered. Pt identifies with HINDU buddhism. Pt confirms being a [place] Citizen. Pt.'s primary language is Gibraltarian. Pt confirms the ability to read,write, and understand Gibraltarian. Pt denies potential donors. Donor cards and [...] valid license, does not regularly drive (MAINTENANCE LEADER recommends that he not to drive). He [...] disease etoh cirrohosis April dx in [facility] for thirty days. Pt reports learning [...] as well as referred him to pre campus coordinator. Pt and support demonstrated moderate understanding [...] s primary support team will include brother- Davdi and his spouse Beverley she doesn't work and is available to help. Patient's brother Davdi is a self employed labor contractor. Additional support includes his other brother Tyshawn and his Mary live fifteen minutes away. Of note Mary is a metal door assembler for a [employer] is available to assist spare parts clerk. He confirms being comfortable asking [...] in 2010, he was employed by the [employer]. He has access to SSDI payment (SSDI starts in November) in regards to financial means pre/ post-transplant. Pt confirms (meeting bills currently, ) being able to meet daily needs. Patient's brother asking for additional information on community resources, food stamps and [place]. Refer him to pt.'s dialysis center and the [facility]. Hereports access to Medicaid. Pt. denies [...] treatment after a DUI charge [facility] in [place], court ordered treatment in 2001 and in [...] new visit Date of service: 10/12/2018 -Referring signal manager for today's consult: -Primary Care Provider: Zuly [...] EST Timed up and go 9.9 seconds Web Page Developer Left 52.8 pounds Right 44.9 pounds Waist circ 38.5 inches * Sophie Cary, SAMI - 10/12/2018 10:00 AM EST Formatting of this note may be different from the original. Patient George Styles ([id number]), accompanied by his brother, was seen on [...] any further questions. Sophie GUERINN, RN Liver Supervisor Dry Paste Etiology: ETOH HCC: No ETOH: Yes Last [...] Yovani Orr MD [address] [address] Status Reason Specialty Diagnoses / Procedures Referred By Contact Referred To Contact New Request Diagnoses Cirrhosis of liver with ascites, unspecified hepatic cirrhosis type Procedures US ABDOMEN RUQ/LIVER/GB Yovani Orr MD [address] [address] Specialty Diagnoses / Procedures Referred By Contac t Referred To Contact Diagnoses FAYE (acute kidney injury) Procedures CT ABDOMEN/PELVIS WITHOUT CONTRAST CHG CT SCAN,ABDOMENT AND PELVIS,W/O CONTRAST Central Scheduling [facility] [place] [address] Referral ID Status Reason Start Date Expiration Date V isits Requested Visits Authorized [id number] Pending Review 05/16/2022 06/10/2023 1 1 Specialty Diagnoses / Procedures Referred By Contac t Referred To Contact Diagnoses Other hydronephrosis Procedures FLUORO IMAGING FOR UROLOGY Ryan Yepez MD [address] [facility] [address] [place] [address] Referral ID Status Reason Start Date Expiration Date V isits Requested Visits Authorized [id number] New Request 07/07/2022 08/01/2023 1 1 Specialty Diagnoses / Procedures Referred By Contac t Referred To Contact Procedures DIRECT ADMIT REQUEST Steve Latham MBBS [address] [place] [address] Referral ID Status Reason Start Date Expiration Date V isits Requested Visits Authorized [id number] New Request 08/28/2023 09/21/2024 1 1 Specialty Diagnoses / Procedures Referred By Contac t Referred To Contact Radiology Diagnoses DARLENE (obstructive sleep apnea) Primary hypertension (CMS/HCC) Bilateral lower extremity edema Shortness of breath Procedures Echocardiogram 2D complete Zuly Bruno NP [address] [place] [address] Referral ID Status Reason Start Date Expiration Date Visits Requested Visits Authorized [id number] Incomplete Perform Procedure 01/06/2024 07/04/2024 1 1 Specialty Diagnoses / Procedures Referred By Contac t Referred To Contact Procedures US IMAGING REGIONAL ANESTHESIA Kehinde Gutierrez MD [address] [place] [address] Referral ID Status Reason Start Date Expiration Date V isits Requested Visits Authorized [id number] New Request 01/22/2024 02/15/2025 1 1 Specialty Diagnoses / Procedures Referred By Contac t Referred To Contact Cardiovascular Medicine Diagnoses Heart failure, diastolic, acute Kelvin Pacheco MD, MBBS [address] 1[address] [place] [address] Referral ID Status Reason Start Date Expiration Date V isits Requested Visits Authorized [id number] New Request 01/20/2024 02/13/2025 1 1 Specialty Diagnoses / Procedures Referred By Contac t Referred To Contact Procedures US ABDOMEN LIVER DOPPLER US ABDOMEN LIVER TRANSPLANT DOPPLER Timothy Joseph MD [address] [place] [address] Referral ID Status Reason Start Date Expiration Date V isits Requested Visits Authorized [id number] New Request 01/16/2024 02/09/2025 1 1 Specialty Diagnoses / Procedures Referred By Contac t Referred To Contact Procedures DVT/VTE RISK ASSESSMENT Kelvin Pacheco MD, MBBS [address] [place], [place] [address] Referral ID Status Reason Start Date Expiration Date V isits Requested Visits Authorized [id number] New Request 01/16/2024 02/09/2025 1 1 Specialty Diagnoses / Procedures Referred By Contac t Referred To Contact Procedures PLATELET MONITORING PER PROTOCOL Kelvin Pacheco MD, MBBS [address] [place] [address] Referral ID Status Reason Start Date Expiration Date V isits Requested Visits Authorized [id number] New Request 01/16/2024 02/09/2025 1 1 Referral ID Status Reason Start Date Expiration Date V isits Requested Visits Authorized [id number] New Request 01/16/2024 02/09/2025 1 1 Specialty Diagnoses / Procedures Referred By Contac t Referred To Contact Procedures ECG Kelvin Pacheco MD, MBBS [address] [place] [address] Referral ID Status Reason Start Date Expiration Date V isits Requested Visits Authorized [id number] New Request 01/16/2024 02/09/2025 1 1 Specialty Diagnoses / Procedures Referred By Contac t Referred To Contact Diagnoses Liver lesion Procedures MRI ABDOMEN WITH AND WITHOUT CONTRAST CHG MRI ABDOMEN W/O & W/CONTRAST MATERIAL Manolo Maxy A, DO [address] [place] [address] Referral ID Status Reason Start Date Expiration Date V isits Requested Visits Authorized [id number] New Request 06/17/2024 07/12/2025 1 1 Advance Directives Documents on File Type Date Recorded 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 Advance Directives and Living Will Power of Car Wiper Latest Code Status on File Code Status [...] Yovani Orr MD [address] [address] Status Reason Specialty Diagnoses / Procedures Referre d By Contact Referred To Contact Denied Diagnoses Alcoholic cirrhosis, unspecified whether ascites present Pre-transplant evaluation for liver transplant Procedures MRI ABDOMEN WITH CONTRAST NC MRI, ABDOMEN W/CONTRAST Yovani Orr MD [address] [address] Reason Comments Liver Recipient Evaluation Status Reason Specialty Diagnoses / Procedures Referred By Contact Referred To Contact New Request Transplant / Transplant Surgery Procedures PRE NEW PATIENT Yovani Orr MD [address] [address] Alfredito Restrepo MD [address] [place] [address] Reason Comments Reschedule Reason Comments Outside Medical Records Request Reason Comments Social Work Follow-up Reason Comments Kidney Stone Specialty Diagnoses / Procedures Referred By Contac t Referred To Contact Diagnoses Obstructing kidney stone, s/p kidney transplant 2019 Daya Saldana MD [address] [place] [address] [facility] [address] [place] [address] Referral ID Status Reason Start Date Expiration Date Visits Re quested Visits Authorized [id number] 1 1 Reason Comments Follow-up Reason Comments Kidney Recipient Follow-up Liver Recipient Follow-up Reason Comments Consult Reason Comments New Patient Hospital follow up Specialty Diagnoses / Procedures Referred By Contac t Referred To Contact Urology Diagnoses hosp fu with [address] prior Procedures NEW TO DOC/RET PATIENT KristopherZuly steve, MAINTENANCE LEADER [address] [place] [address] Ryan Yepez MD [facility] [address] [place] [address] Referral ID Status Reason Start Date Expiration Date Visits Re quested Visits Authorized [id number] Closed 06/27/2022 07/22/2023 1 1 Specialty Diagnoses / Procedures Referred By Contac t Referred To Contact Diagnoses FAYE (acute kidney injury) Procedures CT ABDOMEN/PELVIS WITHOUT CONTRAST CHG CT SCAN,ABDOMENT AND PELVIS,W/O CONTRAST Central Scheduling [address] [place] [address] Referral ID Status Reason Start Date Expiration Date V isits Requested Visits Authorized [id number] Pending Review 05/16/2022 06/10/2023 1 1 Reason Comments Follow-up Specialty Diagnoses / Procedures Referred By Contac t Referred To Contact Urology Diagnoses 1 week fu post NT clamp Procedures RETURN PATIENT KristopherZuly steveROB [address] [place] [address] Ryan Yepez MD [address] [facility] [address] [place] [address] Referral ID Status Reason Start Date Expiration Date Visits Requested Visits Authorized [id number] Authorized - 07/07/2022 08/01/2023 2 2 Specialty Diagnoses / Procedures Referred By Contac t Referred To Contact Diagnoses Other hydronephrosis Procedures FLUORO IMAGING FOR UROLOGY Ryan Yepez MD [address] [facility] [address] [place] [address] Referral ID Status Reason Start Date Expiration Date V isits Requested Visits Authorized [id number] New Request 07/07/2022 08/01/2023 1 1 Specialty Diagnoses / Procedures Referred By Contac t Referred To Contact Urology Diagnoses 1 week fu post NT clamp Procedures RETURN PATIENT Kristopherlydialatishasaeed Zuly, MAINTENANCE LEADER [address] [place] [address] Ryan Yepez MD [address] [facility] [address] [place] [address] Referral ID Status Reason Start Date Expiration Date Visits Re quested Visits Authorized [id number] Closed 07/07/2022 08/01/2023 2 2 Reason Comments Liver Recipient Follow-up Reason Comments Kidney Recipient Follow-up Reason Comments Kidney Recipient Follow-up Specialty Diagnoses / Procedures Referred By Contac t Referred To Contact Diagnoses Kidney replaced by transplant Steve Latham [facility] [address] [place] [address] [facility] [address] [place] [address] Referral ID Status Reason Start Date Expiration Date Visits Re quested Visits Authorized [id number] 1 1 Specialty Diagnoses / Procedures Referred By Contac t Referred To Contact Diagnoses Pleural effusion on right PNEUMONIA- HX LIVER AND KIDNEY TRANSPLANT Kevin Sage MD [address] [place] [address] [facility] [address] [place] [address] Referral ID Status Reason Start Date Expiration Date Visits Re quested Visits Authorized [id number] 1 1 Reason Comments New Patient Specialty Diagnoses / Procedures Referred By Deni edwards Referred To Contact Cardiovascular Medicine Diagnoses Heart failure, diastolic, acute Kelvin Pacheco MD, [facility] [address] 1[address] [place] [address] Referral ID Status Reason Start Date Expiration Date Visits Requested Visits Authorized [id number] Authorized - 01/20/2024 02/13/2025 5 5 Reason Comments Liver Recipient Follow-up (unrecognized sect ion and content) No Status Records FoundNo Status Records FoundNo Status Records FoundNo Status Records FoundNo Status Records FoundNo Status Records Found INFORMATION SOURCE (unrecogn ized section and content) DATE CREATED AUTHOR 01/07/2020 [facility] DATE CREATED AUTHOR AUTHOR'S ORGANIZ ATION 01/27/2021 [facility] DATE CREATED AUTHOR AUTHOR'S ORGANIZ ATION 05/11/2023 [facility] DATE CREATED AUTHOR AUTHOR'S ORGANIZ ATION 04/19/2024 [facility] DATE CREATED AUTHOR AUTHOR'S ORGANIZ ATION 06/03/2024 [facility] DATE CREATED AUTHOR AUTHOR'S ORGANIZ ATION 06/20/2024 [facility] Care Teams (unrecognized sec tion and content) Medical Sales Representative Relationship Specialty Start Date End Date Zuly Bruno CNP PCP - General 07/19/18 Comfort Rivera [facility] [address] [place] [address] Pharmacist Pharmacist 05/16/20 Angel Carpio, [facility],PharmD Pharmacist Pharmacist 05/16/20 Te Leigh [facility],PharmD Pharmacist Pharmacist 01/09/21 Medical Sales Representative Relationship Specialty Start Date End Date Zuly Bruno CNP PCP - General 07/19/18 Comfort Rivera, [facility] [address] [facility] [address] [place] [address] Pharmacist Pharmacist 05/16/20 Angel Carpio, [facility],PharmD Pharmacist Pharmacist 05/16/20 Te Leigh, [facility],PharmD Pharmacist Pharmacist 01/09/21 Medical Sales Representative Relationship Specialty Start Date End Date Zuly Bruno CNP PCP - General 07/19/18 Medical Sales Representative Relationship Specialty Start Date End Date Zuly Bruno CNP PCP - General 07/19/18 Medical Sales Representative Relationship Specialty Start Date End Date Zuly Bruno CNP PCP - General 07/19/18 Medical Sales Representative Relationship Specialty Start Date End Date Zuly Bruno CNP PCP - General 07/19/18 Medical Sales Representative Relationship Specialty Start Date End Date Zuly Bruno CNP PCP - General 07/19/18 Medical Sales Representative Relationship Specialty Start Date End Date Zuly Bruno CNP PCP - General 07/19/18 Medical Sales Representative Relationship Specialty Start Date End Date Zuly Bruno CNP PCP - General 07/19/18 Medical Sales Representative Relationship Specialty Start Date End Date Zuly Bruno CNP PCP - General 07/19/18 Medical Sales Representative Relationship Specialty Start Date End Date Zuly Bruno CNP PCP - General 07/19/18 Medical Sales Representative Relationship Specialty Start Date End Date Zuly Bruno CNP PCP - General 07/19/18 Medical Sales Representative Relationship Specialty Start Date End Date Zuly Bruno CNP PCP - General 07/19/18 Medical Sales Representative Relationship Specialty Start Date End Date Zuly Bruno CNP PCP - General 07/19/18 Medical Sales Representative Relationship Specialty Start Date End Date Zuly Bruno CNP PCP - General 07/19/18 Medical Sales Representative Relationship Specialty Start Date End Date Zuly Bruno CNP PCP - General 07/19/18 Medical Sales Representative Relationship Specialty Start Date End Date Zuly Bruno CNP PCP - General 07/19/18 Evan White DO [facility] [place] [employer] [address] Infectious Disease Infectious Disease 09/09/23 Medical Sales Representative Relationship Specialty Start Date End Date Zuly Bruno CNP PCP - General 07/19/18 Evan White DO [facility] [place] [address] Infectious Disease Infectious Disease 09/09/23 Medical Sales Representative Relationship Specialty Start Date End Date Zuly Bruno CNP PCP - General 07/19/18 Evan White DO [facility] [place] [address] Infectious Disease Infectious Disease 09/09/23 Medical Sales Representative Relationship Specialty Start Date End Date Momo Verdugo MD PCP - General Family Medicine 05/21/23 Medical Sales Representative Relationship Specialty Start Date End Date Momo Verdugo MD PCP - General Family Medicine 05/21/23 Medical Sales Representative Relationship Specialty Start Date End Date Momo Verdugo MD PCP - General Family Medicine 05/21/23 Medical Sales Representative Relationship Specialty Start Date End Date Zuly Bruno CNP PCP - General 07/19/18 Evan White DO [address] [place] [address] Infectious Disease Infectious Disease 09/09/23 Medical Sales Representative Relationship Specialty Start Date End Date Zuly Bruno CNP PCP - General 07/19/18 Evan White DO [address] [place] [address] Infectious Disease Infectious Disease 09/09/23 Medical Sales Representative Relationship Specialty Start Date End Date Zuly Bruno CNP PCP - General 07/19/18 Evan White DO [address] [place] [address] Infectious Disease Infectious Disease 09/09/23 Medical Sales Representative Relationship Specialty Start Date End Date Zuly Bruno CNP PCP - General 07/19/18 Evan White DO [address] [place] [address] Infectious Disease Infectious Disease 09/09/23 Medical Sales Representative Relationship Specialty Start Date End Date Zuly Bruno CNP PCP - General 07/19/18 Evan White DO [address] [place], [place] [id number] Infectious Disease Infectious Disease 09/09/23 Medical Sales Representative Relationship Specialty Start Date End Date Zuly Bruno CNP PCP - General 07/19/18 Medical Sales Representative Relationship Specialty Start Date End Date Zuly Bruno CNP PCP - General 07/19/18 Medical Sales Representative Relationship Specialty Start Date End Date Zuly Bruno CNP PCP - General 07/19/18 Medical Sales Representative Relationship Specialty Start Date End Date Zuly Bruno CNP PCP - General 07/19/18 Medical Sales Representative Relationship Specialty Start Date End Date Zuly Bruno CNP PCP - General 07/19/18 Medical Sales Representative Relationship Specialty Start Date End Date [...] RN) 0930 (Given - Provider: Leon Cook, RN) [...] Provider: Nishant Gamez MD)08 (Given - Provider: Mle Hampton RN)1558 (Given - Provider: Mel Hampton [...] RN)1999 (Given - Provider: Carolyn Isaac, SAMI) 804 [...] RN) 0825 (Given - Provider: Josey Braun, SAMI)2104 [...] Discontinued 08 (Not Given - Provider: Aixa oHlden RN - Reason: Patient/family refused)145 (Not Given [...] 0842 (Given - Provider: Terra Heart RN)1053 ([facility] Hold - Provider: Automatic Transfer - Reason: [...] 0841 (Given - Provider: Terra Heart RN)105 ([facility] Hold - Provider: Automatic Transfer - Reason: Transfer to a Procedural area)141 ([facility] Unhold - Provider: Automatic Transfer)2008 (Given - Provider: Tati Ahmadi RN) 919 (Given - Provider: [facility] RN) Sulfamethoxazole-trime thoprim (BACTRIM DS) 800-160 MG per tablet 1 tablet 1 tablet, Oral, THREE TIMES WEEKLY (Once per day on Thursday), First dose on Thu01/18/24 at 0900, Until Discontinued 08 (Given - Provider: Terra Heart RN)1052 ([facility] Hold - Provider: Automatic Transfer - Reason: Transfer to a Procedural area)1413 ([facility] Unhold - Provider: Automatic Transfer) tacrolimus (PROGRAF) susp 0.2 mg 0.2 mg, Oral, CUSTOM FREQUENCY (Once per day on Thursday), First dose on Thu01/16/24 at 0900, Until Discontinued, Caution check route of administration. For sublingual administration, place liquid under tongue and allow absorption. 841 (Given - Provider: Erica Gudino RN) 1052 ([facility] Hold - Provider: Automatic Transfer - Reason: Transfer to a Procedural area)1413 ([facility] Unhold - Provider: Automatic Transfer) 922 (Given - Provider: Terra Heart RN) Tamsulosin HCl (FLOMAX) capsule 0.4 mg 0.4 mg, Oral, DAILY, First dose on Thu01/16/24 at 0900, Until Discontinued, Slow release product. Do not chew or crush 841 (Given - Provider: Erica Gudino RN) 08 (Given - Provider: Terra Heart RN)1052 ([facility] Hold - Provider: Automatic Transfer - Reason: Transfer to a Procedural area)141 ([facility] Unhold - Provider: Automatic Transfer) 09 (Given [...] 0841 (Given - Provider: Terra Heart RN)1053 ([facility] Hold - Provider: Automatic Transfer - Reason: Transfer to a Procedural area)1414 ([facility] Unhold - Provider: Automatic Transfer) 0920 (Given [...] from all sources in 24 hours. 1053 ([facility] Hold - Provider: Automatic Transfer - Reason: Transfer to a Procedural area)1414 ([facility] Unhold - Provider: Automatic Transfer)1806 (Given - [...] 200-200 mg and Simethicone 20 mg) 1053 ([facility] Hold - Provider: Automatic Transfer - Reason: Transfer to a Procedural area)1414 ([facility] Unhold - Provider: Automatic Transfer) guaiFENesin (ROBITUSSIN) oral solution 400 mg 400 mg, Oral, EVERY 6 HOURS NEEDED, Starting on 01/16/24 at 0202, Until 01/23/24 at 1752, Cough, Congestion 1053 ([facility] Hold - Provider: Automatic Transfer - Reason: Transfer to a Procedural area)1414 ([facility] Unhold - Provider: Automatic Transfer) HYDROmorphone (DILAUDID) [...] 0016, Until 01/23/24 at 1752, Insomnia 1053 ([facility] Hold - Provider: Automatic Transfer - Reason: Transfer to a Procedural area)1414 ([facility] Unhold - Provider: Automatic Transfer)2355 (Given - Provider: Tati Ahmadi RN) Ondansetron (ZOFRAN) tablet 4 mg(Linked Group 1) 4 mg, Oral, EVERY 6 HOURS NEEDED, Starting on 01/16/24 at 0202, Until 01/23/24 at 1752, Nausea / Vomiting, 1st line for Nausea/Vomiting 1053 ([facility] Hold - Provider: Automatic Transfer - Reason: Transfer to a Procedural area)1414 ([facility] Unhold - Provider: Automatic Transfer)1809 (See Alternative - Provider: Terra Haert RN) 0430 (See Alternative - Provider: Tati Ahmadi RN)1415 (Given - Provider: Terra Heart RN) Ondansetron 4mg/2ml (ZOFRAN) injection 4 mg(Linked Group 1) 4 mg, Intravenous, EVERY 6 HOURS NEEDED, Starting on 01/16/24 at 0202, Until 01/23/24 at 1752, Nausea / Vomiting, 1st line for Nausea/Vomiting 1053 ([facility] Hold - Provider: Automatic Transfer - Reason: Transfer to a Procedural area)1414 ([facility] Unhold - Provider: Automatic Transfer)1809 (Given - [...] - Reason: Transfer to a Procedural area)1414 ([facility] Unhold - Provider: Automatic Transfer) Prochlorperazine (COMPAZINE) [...] - Reason: Transfer to a Procedural area)1414 ([facility] Unhold - Provider: Automatic Transfer)2349 (Given - [...] the intermittent or piggy back medication. 1053 ([facility] Hold - Provider: Automatic Transfer - Reason: [...] BE BASED ON THE PRIMARY CLINICAL RECORDS. [employer] [facility]. provides no warranty or guarantee of the accuracy or completeness of information in this document.
[2024-06-27 07:15] LABS: Protein Creatinine Ratio Urine 0.12; Total Protein Urine Random 8.4 mg/dL (<=11.9)
[2024-06-27 07:18] LABS: Alanine Aminotransferase 51 U/L (16-63); Albumin Level 3.9 g/dL (3.4-5.0); Alkaline Phosphatase 115 U/L (46-116); Anion Gap 13.1; Aspartate Amino Transferase 39 U/L (15-37); BUN Creatinine Ratio 15.3; Bilirubin Direct 0.2 mg/dL (0.0-0.2); Bilirubin Total 0.8 mg/dL (0.2-1.0); Calcium 9.4 mg/dL (8.5-10.1); Carbon Dioxide 28.8 mmol/L (21.0-32.0); Chloride 103 mmol/L (98-107); Estimated GFR (African America >60 (>=60); Estimated GFR (Non-African Ame >60 (>=60); Gamma Glutamyl Transpeptidase 23 U/L (15-85); Glucose 104 mg/dL (74-106); Magnesium 1.9 mg/dL (1.8-2.4); Phosphorus 2.9 mg/dL (2.6-4.7); Potassium 3.9 mmol/L (3.5-5.1); Sodium 141 mmol/L (136-145)
[2024-06-27 07:33] LABS: Basophils Percent Auto 0.6 % (0.2-2.0); Eosinophils Absolute Auto 0.2 10^3/uL (0.0-0.7); Hemoglobin 15.6 g/dL (14.0-18.0); Lymphocytes Absolute Auto 1.8 10^3/uL (1.2-3.8); Lymphocytes Percent Auto 51.6 % (20.5-60.0); Mean Corpuscular HGB Conc 33.2 g/dL (29.9-35.2); Mean Corpuscular Hemoglobin 29.3 pg (25.9-34.0); Mean Corpuscular Volume 88.3 fL (80.0-94.0); Mean Platelet Volume 9.5 fL (9.5-13.5); Monocytes Absolute Auto 0.4 10^3/uL (0.3-0.8); Monocytes Percent Auto 10.9 % (1.7-12.0); Neutrophils Absolute Auto 1.1 10^3/uL (1.4-6.5); Neutrophils Percent Auto 31.9 % (43.0-75.0); Platelet Count 203 10^3/uL (150-450); Red Blood Count 5.32 10^6/uL (4.70-6.10); Red Cell Distribution Width 11.9 % (11.0-15.0); White Blood Count 3.4 10^3/uL (4.0-11.0)
[2024-06-29 20:08] LABS: Tacrolimus (FK506), Blood 3.1 ng/mL (2.0-20.0)
== END 2024-06-27 06:36 | disposition home or self-care (01) ==
LOC: LAB 06:35
PROVIDERS: PCP Nurse Practitioner
DX: R79.9 Abnormal finding of blood chemistry, unspecified (principal); Z94.0 Kidney transplant status; Z94.4 Liver transplant status; Z48.298 Encounter for aftercare following other organ transplant
CPT/HCPCS: 36415; 80048; 80061; 80197; 82042; 82247; 82248; 82570; 82977; 83735; 84075; 84100; 84156; 84450; 84460; 85025

== ENCOUNTER 2024-07-04 06:34 | Outpatient (OUT) | payer MEDICARE, MEDICAID, SELFPAY ==
--- OUTSIDE RECORDS SUMMARY | 2024-07-04 06:43 | XMS_ITS | CCD ---
Author Organization [facility] Care Team Providers Care Director [employer] Name Role Phone Kiana Zuly Unavailable Unavailable [...] Unavailable AICHHOLZ, ZULY Primary Care Unavailable Aichholz [facility] Primary Care Provider [phone] Miguel RPComfort Unavailable [phone] Shirin [facility],PharmD, Angel Unavailable Unavailab makayla Leigh [facility],PharmD, Te Unavailable Unavai lable [facility]ich[facility]z [facility] Provider CHANDUC, DR BURCH Admitting Unavailable MISC, DR BURCH Consulting Unavailable AICHHOLZ, BUCKET CHUCKER ZULY Primary Care Unavailable MISC, DR BURCH Attending Unavailable MISC, DR BURCH Admitting Unavailable MISC, DR BURCH Consulting Unavailable AICHHOLZ, BUCKET CHUCKER ZULY Primary Care Unavailable MISC, DR BURCH Attending Unavailable ARCELIA PIZARRO Consulting Unavailable KE BURNHAM Attending Unavailable KE BURNHAM Admitting Unavailable BARBARA, DR MÓNICA Munoz Consulting Unavailable AICHHOLZ, BUCKET CHUCKER ZULY Primary Care Unavailable KE BURNHAM Consulting Unavailable MISC, DR BURCH Consulting Unavailable MISC, DR BURCH Attending Unavailable AICHHOLZ, BUCKET CHUCKER ZULY Primary Care Unavailable MISC, DR BURCH Admitting Unavailable MISC, DR BURCH Consulting Unavailable MISC, DR BURCH Attending Unavailable AICHHOLZ, BUCKET CHUCKER ZULY Primary Care Unavailable MISC, DR BURCH Admitting Unavailable MISC, DR BURCH Consulting Unavailable AICHHOLZ, BUCKET CHUCKER ZULY Primary Care Unavailable MISC, DOCTOR Admitting Unavailable MISC, DR DOCTOR Attending Unavailable MELINDA, DR GEORGE Munoz Consulting Unavailable MELINDA, DR GEORGE Munoz Attending Unavailable AICHHOLZ, BUCKET CHUCKER ZUYL Primary Care Unavailable MELINDA, DR GEORGE Munoz Admitting Unavailable NAUN ., KE Consulting Unavailable MIRANDA, LYNDSAY Consulting Unavailable MELINDA, DR GEORGE Munoz Consulting Unavailable NAUN ., KE Attending Unavailable NAUN ., EK Admitting Unavailable AICHHOLZ, BUCKET CHUCKER ZULY Primary Care Unavailable NAUN ., KE Consulting Unavailable GIAN HERRING Consulting Unavailable AICHHOLZ, BUCKET CHUCKER ZULY Consulting Unavailable AICHHOLZ, BUCKET CHUCKER ZULY Attending Unavailable AICHHOLZ, BUCKET CHUCKER ZULY Admitting Unavailable AICHHOLZ, BUCKET CHUCKER ZULY Primary Care Unavailable MISC, DR DOCTOR Consulting Unavailable MISC, DOCTOR Admitting Unavailable MISC, DOCTOR Attending Unavailable AICHHOLZ, BUCKET CHUCKER ZULY Primary Care Unavailable MISC, DR DOCTOR Consulting Unavailable MISC, DR DOCTOR Attending Unavailable MISC, DOCTOR Admitting Unavailable AICHHOLZ, BUCKET CHUCKER ZULY Primary Care Unavailable MISC, DOCTOR Admitting Unavailable MISC, DOCTOR Consulting Unavailable MISC, DR DOCTOR Attending Unavailable AICHHOLZ, BUCKET CHUCKER ZULY Primary Care Unavailable MISC, DOCTOR Admitting Unavailable MISC, DR DOCTOR Consulting Unavailable AICHHOLZ, BUCKET CHUCKER ZULY Primary Care Unavailable MISC, DR DOCTOR Attending Unavailable MISC, DOCTOR Admitting Unavailable MISC, DOCTOR Consulting Unavailable AICHHOLZ, BUCKET CHUCKER ZULY Primary Care Unavailable MISC, DR DOCTOR Attending Unavailable AICHHOLZ, BUCKET CHUCKER ZULY Consulting Unavailable AICHHOLZ, BUCKET CHUCKER ZULY Attending Unavailable AICHHOLZ, BUCKET CHUCKER ZULY Admitting Unavailable AICHHOLZ, BUCKET CHUCKER ZULY Primary Care Unavailable DR MÓNICA JIMENEZ Consulting Unavailable Aichholz [facility], Zuly Primary Care Provider Evan White DO Unavailable [phone] [facility], Zuly Primary Care Provider [phone] Tran White DOs A Unavailable Momo Verdugo MD Primary Care Provider [phone] Aichholz BUCKET CHUCKER, Zuly Primary Care Provider [phone] AICHHOLZ, ZULY Attending Unavailable AICHHOLZ, ZULY Attending [...] Propensity to adverse reactions (disorder) 8 [facility] Repository (20 sources) Shellfish-Derive d Products Propensity to adverse reactions to drug 9 [facility] (1 source) Shellfish Drug allergy (disorder) The [facility] Repository Medications Current Medications Medication Drug [...] 1 capsule by mouth once daily b saiseej-Y-tyxfn acid (NEPHROCAPS) 1 MG capsule Take 1 [...] ankle pain. 0 06/12/2020 06/12/2023 Discontinued lactulose 17456 mg powder for oral solution (19 sources) [...] 07/17/2018 Active take 2 tablets by mo [facility] three times daily at mealtime [...] itraconazole Fax results to: Dr. White - [phone] [facility] - [phone] Each 09/10/2023 01/19/2024 Discontinued (Medication Reconciliation (suppress cancel msg)) Start: 09-10-2023 CUSTOM MEDICAT ION Labs to be obtained: 1- Tacrolimus level, trough - collect twice weekly until 09/24/23, then weekly until 10/08/23, them once every two weeks there after. 2- Itraconazole level - obtain once between 09/14-09/18. 3- Chem 6 - Obtain weekly while on itraconazole Fax results to: Dr. White - [phone] [facility] - [phone] Each 0 09/10/2023 Active Diatrizoate (1 [...] Discontinued take 2 tablets by mo [facility] in the morning magnesium oxide [...] (ROXICODONE) tablet 10 mg polyethylene glycol 3350 30434 mg powder for oral solution (20 sources) [...] Coronary arteriosclerosis; Translations: [Atherosclerotic heart disease of [place] coronary artery without angina pectoris] Onset: 3 [...] Taking high risk medication; Translations: [Other termite helper (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] Episodic Other aftercare (1 [...] Episodic Other aftercare (2 sources) Other termite helper (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; Translations: [[facility] 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 THERAPY] Onset: 07-06-2022 Episodic Other aftercare (1 source) nursing home (current) use of aspirin; Translations: [MEDIA ACCOUNT EXECUTIVE CURRENT USE OF ASPIRIN] Onset: 06-20-2022 Episodic [...] Onset: 08-28-2023 Unclassified (1 source) Other termite helper (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; Translations: [Other detention (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] Onset: 08-28-2023 Unclassified (1 [...] Patient informed and he verbalized understanding. Normal [facility] Office Visiton 05-13-2024 Follow-up visit [id number] George Styles 1970 M Date Provider Department Center 05/13/2024 [facility]UEL C[facility] Family History Problem Relation Age of Onset Coronary artery disease Mother Coronary artery disease Father Family Status - Relation Status Age at Mother Father Level of Service:80224 [place] OFFICE/OUTPATIENT ESTABLISHED LOW MDM 20 MIN Reason for Visit and Comments: Follow-up [445672] - Yearly follow up Normal [facility] B-TYPE NATRIURETIC PEPTIDE ( BRAIN)on 02-26-2024 Interpretation and review of laboratory results Normal [facility] Natriuretic peptide B (Bld) [Mass/Vol] 72 pg/mL 0 - 100 pg/mL [facility] Natriuretic peptide B (Bld) [Mass/Vol] 72 pg/mL Normal 0-100 [facility] Comment on above: Performed By: #### B THEATRE INSTRUCTOR ####[facility] (DEFAULT)[address] [place] [address] CHEM 6 (LYTES, BUN CREA)on 0 02-26-2024 Anion gap [Moles/Vol] 13 mmol/L 7 - 17 mmol/L [facility] Chloride [Moles/Vol] 107 mmol/L 98 - 10 8 mmol/L [facility] CO2 [Moles/Vol] 25 mmol/L 21 - 31 mmol/L [facility] Creatinine [Mass/Vol] 1.23 mg/dL 0.70 - 1.30 mg/dL [facility] eGFR, CKD-EPI, Male 70 - PINF [facility] Comment on above: Reported eGFR is bas ed on the CKD-EPI 2020 equation using creatinine, age, and sex. Potassium [Moles/Vol] 4.2 mmol/L 3.5 - 5.0 mmol/L [facility] Sodium [Moles/Vol] 141 mmol/L 135 - 145 mmol/L [facility] Urea nitrogen [Mass/Vol] 17 mg/dL 7 - 25 mg/dL [facility] Urea nitrogen/Creatinine [Mass ratio] 14 mg/mg [facility] Anion gap [Moles/Vol] 13 mmol/L Normal 7-17 [facility] Comment on above: Performed By: #### C HM6 ####[facility] (DEFAULT)[address] [place] [address] Chloride [Moles/Vol] 107 mmol/L Normal 98-108 [facility] Comment on above: Performed By: #### C HM6 ####[facility] (DEFAULT)[address] [place] [address] CO2 [Moles/Vol] 25 mmol/L Normal 21-31 [facility] Comment on above: Performed By: #### C HM6 ####[facility] (DEFAULT)[address] [place] [address] Creatinine [Mass/Vol] 1.23 mg/dL Normal 0.70-1.30 [facility] Comment on above: Performed By: #### C HM6 ####[facility] (DEFAULT)[address] [place] [address] GFR/1.73 sq M.predicted among non-blacks MDRD (S/P/Bld) [Vol rate/Area] 70 mL/min/{1.73_m2} Normal >=60 [facility] Comment on above: Result Comment: Repo rted eGFR is based on the CKD-EPI 2020 equation using creatinine, age, and sex. Performed By: #### C HM6 ####[facility] (DEFAULT)[address] [place] [address] Potassium [Moles/Vol] 4.2 mmol/L Normal 3.5-5.0 [facility] Comment on above: Performed By: #### C HM6 ####[facility] (DEFAULT)[address] [place] [address] Sodium [Moles/Vol] 141 mmol/L Normal 135-145 [facility] Comment on above: Performed By: #### C HM6 ####[facility] (DEFAULT)[address] [place] [address] Urea nitrogen [Mass/Vol] 17 mg/dL Normal 7-25 [facility] Comment on above: Performed By: #### C HM6 ####[facility] (DEFAULT)[address] [place] [address] Urea nitrogen/Creatinine [Mass ratio] 14 mg/mg Normal [facility] Comment on above: Performed By: #### C HM6 ####[facility] (DEFAULT)[address] [place] [address] CBC,PLATELETSon 01-23-2024 Erythrocyte distribution width (RBC) [Ratio] 14.2 % 10.9 - 14.3 % [facility] Hematocrit (Bld) [Volume fraction] 37.0 % Low 39.6 - 48.8 % [facility] Hemoglobin (Bld) [Mass/Vol] 12.0 g/dL Low 13.4 - 16.8 g/dL [facility] Interpretation and review of laboratory results Abnormal [facility] MCH (RBC) [Entitic mass] 28.6 pg 26.1 - 33.3 pg [facility] MCHC (RBC) [Mass/Vol] 32.4 g/dL 31.9 - 36.5 g/dL [facility] MCV (RBC) [Entitic vol] 88.1 fL 79.0 - 94.5 fL [facility] Platelet mean volume (Bld) [Entitic vol] 10.4 fL 8.7 - 12.3 fL [facility] Platelets (Bld) [#/Vol] 170 10*3/uL 146 - 337 K/uL [facility] RBC (Bld) [#/Vol] 4.20 10*6/uL Low [facility] WBC (Bld) [#/Vol] 3.70 10*3/uL Low 3.73 - 10. 10 K/uL [facility] Hematocrit (Bld) [Volume fraction] 37.0 % Low 39.6-48.8 [facility] Comment on above: Performed By: #### H [facility] ####[facility] (DEFAULT)[address] [place] [address] Hemoglobin (Bld) [Mass/Vol] 12.0 g/dL Low 13.4-16.8 [facility] Comment on above: Performed By: #### H [facility] ####[facility] (DEFAULT)[address] [place] [address] MCV (RBC) [Entitic vol] 88.1 fL Normal 79.0-94.5 [facility] Comment on above: Performed By: #### H [facility] ####[facility] (DEFAULT)[address] [place] [address] Mean Cell Hgb 28.6 pg Normal 26.1-33.3 [facility] Comment on above: Performed By: #### H EMOGC ####[facility] (DEFAULT)[address] [place] [address] Mean Cell Hgb Conc 32.4 g/dL Normal 31.9-36.5 [facility] Comment on above: Performed By: #### H EMOGC ####[facility] (DEFAULT)[address] [place] [address] Platelet mean volume (Bld) [Entitic vol] 10.4 fL Normal 8.7-12.3 [facility] Comment on above: Performed By: #### H EMOGC ####[facility] (DEFAULT)[address] [place] [address] Platelets (Bld) [#/Vol] 170 10*3/uL Normal 146-337 [facility] Comment on above: Performed By: #### H EMOGC ####[facility] (DEFAULT)[address] [place] [address] RBC (Bld) [#/Vol] 4.20 10*6/uL Low 4.38-5.83 [facility] Comment on above: Performed By: #### H EMOGC ####[facility] (DEFAULT)[address] [place] [address] RBC Distribution 14.2 % Normal 10.9-14.3 [facility] Comment on above: Performed By: #### H EMOGC ####[facility] (DEFAULT)[address] [place] [address] WBC (Bld) [#/Vol] 3.70 10*3/uL Low 3.73-10.10 [facility] Comment on above: Performed By: #### H EMOGC ####[facility] (DEFAULT)[address] [place] [address] CHEM 7 (LYTES,BUN,CREA,GLUC) on 01-23-2024 Anion gap [Moles/Vol] 14 mmol/L 7 - 17 mmol/L [facility] Chloride [Moles/Vol] 105 mmol/L 98 - 10 8 mmol/L [facility] CO2 [Moles/Vol] 25 mmol/L 21 - 31 mmol/L [facility] Creatinine [Mass/Vol] 1.32 mg/dL High 0.70 - 1.30 mg/dL [facility] eGFR, CKD-EPI, Male 65 - PINF [facility] Comment on above: Reported eGFR is bas ed on the CKD-EPI 2020 equation using creatinine, age, and sex. Glucose [Mass/Vol] 94 mg/dL 70 - 99 mg/dL [facility] Osmolality Calc [Osmolality] 296 [facility] Potassium [Moles/Vol] 3.8 mmol/L 3.5 - 5.0 mmol/L [facility] Sodium [Moles/Vol] 140 mmol/L 135 - 145 mmol/L [facility] Urea nitrogen [Mass/Vol] 23 mg/dL 7 - 25 mg/dL [facility] Urea nitrogen/Creatinine [Mass ratio] 17 mg/mg [facility] Anion gap [Moles/Vol] 14 mmol/L Normal 7-17 [facility] Comment on above: Performed By: #### NATHANIEL RAMÍREZ, HFP ####[facility] (DEFAULT)[address] [place] [address] Chloride [Moles/Vol] 105 mmol/L Normal 98-108 [facility] Comment on above: Performed By: #### NATHANIEL RAMÍREZ, HFP ####[facility] (DEFAULT)[address] [place] [address] CO2 [Moles/Vol] 25 mmol/L Normal 21-31 [facility] Comment on above: Performed By: #### NATHANIEL RAMÍREZ, HFP ####[facility] (DEFAULT)[address] [place] [address] Creatinine [Mass/Vol] 1.32 mg/dL High 0.70-1.30 [facility] Comment on above: Performed By: #### NATHANIEL RAMÍREZ, HFP ####[facility] (DEFAULT)[address] [place] [address] GFR/1.73 sq M.predicted among non-blacks MDRD (S/P/Bld) [Vol rate/Area] 65 mL/min/{1.73_m2} Normal >=60 [facility] Comment on above: Result Comment: Repo rted eGFR is based on the CKD-EPI 2020 equation using creatinine, age, and sex. Performed By: #### NATHANIEL RAMÍREZ, HFP ####[facility] (DEFAULT)[address] [place] [address] Glucose [Mass/Vol] 94 mg/dL Normal 70-99 [facility] Comment on above: Performed By: #### NATHANIEL RAMÍREZ, HFP ####[facility] (DEFAULT)[address] [place] [address] Osmolality [Osmolality] 296 mosm/kg Normal 278-305 [facility] Comment on above: Performed By: #### NATHANIEL RAMÍREZ, HFP ####[facility] (DEFAULT)[address] [place] [address] Potassium [Moles/Vol] 3.8 mmol/L Normal 3.5-5.0 [facility] Comment on above: Performed By: #### NATHANIEL RAMÍREZ, HFP ####[facility] (DEFAULT)[address] [place] [address] Sodium [Moles/Vol] 140 mmol/L Normal 135-145 [facility] Comment on above: Performed By: #### NATHANIEL RAMÍREZ, HFP ####[facility] (DEFAULT)[address] [place] [address] Urea nitrogen [Mass/Vol] 23 mg/dL Normal 7-25 [facility] Comment on above: Performed By: #### M NATHANIEL BLOOM, HFP ####[facility] (DEFAULT)[address] [place] [address] Urea nitrogen/Creatinine [Mass ratio] 17 mg/mg Normal [facility] Comment on above: Performed By: #### NATHANIEL RAMÍREZ, HFP ####[facility] (DEFAULT)[address] [place] [address] GLUCOSE POCon 01-23-2024 Glucose [Mass/Vol] 88 mg/dL 70 - 99 mg/dL [facility] Test performed at ad dress of the patient encounter. [facility] Glucose [Mass/Vol] 191 mg/dL High 70 - 99 mg/dL [facility] Interpretation and review of laboratory results Abnormal [facility] POC Sample Type CAPBL [facility] Test performed at ad dress of the patient encounter. [facility] HEPATIC FUNCTION PANELon Albumin [Mass/Vol] 3.9 g/dL 3.5 - 5.0 g/dL [facility] ALP [Catalytic activity/Vol] 83 U/L 32 - 126 U/L [facility] ALT [Catalytic activity/Vol] 9 U/L Low 10 - 52 U/L [facility] AST [Catalytic activity/Vol] 17 U/L 10 - 39 U/L [facility] Bilirubin [Mass/Vol] 1.6 mg/dL High NINF - 1.5 mg/dL [facility] Bilirubin.direct [Mass/Vol] 0.4 mg/dL High NINF - 0.3 mg/dL [facility] Protein [Mass/Vol] 6.6 g/dL 6.4 - 8.3 g/dL [facility] Albumin [Mass/Vol] 3.9 g/dL Normal 3.5-5.0 [facility] Comment on above: Performed By: #### M MERLE CHM7, HFP ####[facility] (DEFAULT)[address] [place] [address] ALP [Catalytic activity/Vol] 83 U/L Normal 32-126 [facility] Comment on above: Performed By: #### M MERLE CHM7, HFP ####[facility] (DEFAULT)[address] [place] [address] ALT [Catalytic activity/Vol] 9 U/L Low 10-52 [facility] Comment on above: Performed By: #### M HELEN BLOOMM7, HFP ####[facility] (DEFAULT)[address] [place] [address] AST [Catalytic activity/Vol] 17 U/L Normal 10-39 [facility] Comment on above: Performed By: #### M HELEN BLOOMM7, HFP ####[facility] (DEFAULT)[address] [place] [address] Bilirubin [Mass/Vol] 1.6 mg/dL High <1.5 [facility] Comment on above: Performed By: #### M MERLE CHM7, HFP ####[facility] (DEFAULT)[address] [place] [address] Bilirubin.indirect [Mass/Vol] 0.4 mg/dL High <0.3 [facility] Comment on above: Performed By: #### M MERLE CHM7, HFP ####[facility] (DEFAULT)[address] [place] [address] Protein [Mass/Vol] 6.6 g/dL Normal 6.4-8.3 [facility] Comment on above: Performed By: #### M MERLE CHM7, HFP ####[facility] (DEFAULT)[address] [place] [address] ITRACONAZOLE LEVELon 024 Hydroxyitraconazole [Mass/Vol] 7.6 mcg/mL [facility] Comment on above: REFERENCE VALUE No therapeutic range established; activity and serum concentration are similar to parent drug. ADDITIONAL INFORMATION This test was developed and its performance characteristics determined by [facility] in a manner consistent with CLIA requirements. This test has not been cleared or approved by the U.S. Food and Drug Administration. Test Performed by: [facility] [address] [place] [address] Consumer Safety Inspector: Rosendo Bose M.D. Ph.D.; CLIA# [id number] Itraconazole [Mass/Vol] 6.0 mcg/mL [facility] Comment on above: REFERENCE VALUE >0.5 (localized infection), >1.0 (systemic infection) [facility] MAGNESIUMon 01-23-2024 Interpretation and review of laboratory results Normal [facility] Magnesium [Mass/Vol] 1.8 mg/dL 1.6 - 2 .6 mg/dL [facility] Magnesium [Mass/Vol] 1.8 mg/dL Normal 1.6-2.6 [facility] Comment on above: Performed By: #### M MERLE, CHM7, [facility] ####[facility] (DEFAULT)[address] [place] [address] No Panel Informationon 01-23 Interpretation and review of laboratory results Abnormal [facility] TACROLIMUS LEVEL, TROUGH (NH E DRUG LEVEL)on 01-23-2024 Interpretation and review of laboratory results Normal [facility] Tacrolimus (Bld) [Mass/Vol] 7.0 ng/mL Bone Marrow Transplant: 4.0-12.0, Therapeutic: 5.0-15.0 [facility] Method performed is a chemiluminescent microparticle immunoasssay on the [employer] i2000. The range is based on experience at [facility] and users should be aware that target concentrations vary widely depending on concomitant therapy, time post-transplant, and desired degree of immunosuppression. [facility] Tacrolimus, Trough 7.0 ng/mL Normal Bone Susana ow Transplant: 4.0-12.0, Therapeutic: 5.0-15.0 [facility] Comment on above: Order Comment: Pleas e draw at specified interval PRIOR to dose. Do not hold dose to wait for level. Specimens batched twice per day, (M-) and once per day weekendsMethod performed is a chemiluminescent microparticle immunoasssay on the [employer] i2000.The range is based on experience at [facility] and users should be aware that target concentrations vary widely depending on concomitant therapy, time post-transplant, and desired degree of immunosuppression. Performed By: #### T ACRO ####[facility] (DEFAULT)[address] [place] [address] CARDIAC RHYTHM (SCANNED)on 0 01-22-2024 [facility] CBC,PLATELETSon 01-22-2024 Erythrocyte distribution width (RBC) [Ratio] 14.1 % 10.9 - 14.3 % [facility] Hematocrit (Bld) [Volume fraction] 41.5 % 39.6 - 48.8 % [facility] Hemoglobin (Bld) [Mass/Vol] 13.3 g/dL Low 13.4 - 16.8 g/dL [facility] Interpretation and review of laboratory results Abnormal [facility] MCH (RBC) [Entitic mass] 27.8 pg 26.1 - 33.3 pg [facility] MCHC (RBC) [Mass/Vol] 32.0 g/dL 31.9 - 36.5 g/dL [facility] MCV (RBC) [Entitic vol] 86.8 fL 79.0 - 94.5 fL [facility] Platelet mean volume (Bld) [Entitic vol] 10.5 fL 8.7 - 12.3 fL [facility] Platelets (Bld) [#/Vol] 186 10*3/uL 146 - 337 K/uL [facility] RBC (Bld) [#/Vol] 4.78 10*6/uL [facility] WBC (Bld) [#/Vol] 3.74 10*3/uL 3.73 - 10. 10 K/uL [facility] Hematocrit (Bld) [Volume fraction] 41.5 % Normal 39.6-48.8 [facility] Comment on above: Performed By: #### H EMO ####[facility] (DEFAULT)[address] [place] [address], [place] [address] Hemoglobin (Bld) [Mass/Vol] 13.3 g/dL Low 13.4-16.8 [facility] Comment on above: Performed By: #### H EMO ####[facility] (DEFAULT)[address] [place] [address] MCV (RBC) [Entitic vol] 86.8 fL Normal 79.0-94.5 [facility] Comment on above: Performed By: #### H EMOGC ####[facility] (DEFAULT)[address] [place] [address] Mean Cell Hgb 27.8 pg Normal 26.1-33.3 [facility] Comment on above: Performed By: #### H EMO ####[facility] (DEFAULT)[address] [place] [address] Mean Cell Hgb Conc 32.0 g/dL Normal 31.9-36.5 [facility] Comment on above: Performed By: #### H EMOGC ####[facility] (DEFAULT)[address] [place] [address] Platelet mean volume (Bld) [Entitic vol] 10.5 fL Normal 8.7-12.3 [facility] Comment on above: Performed By: #### H [facility] ####[facility] (DEFAULT)[address] [place] [address] Platelets (Bld) [#/Vol] 186 10*3/uL Normal 146-337 [facility] Comment on above: Performed By: #### H EMO ####[facility] (DEFAULT)[address] [place] [address] RBC (Bld) [#/Vol] 4.78 10*6/uL Normal 4.38-5.83 [facility] Comment on above: Performed By: #### [facility] ####[facility] (DEFAULT)[address] [place] [address] RBC Distribution 14.1 % Normal 10.9-14.3 [facility] Comment on above: Performed By: #### [facility] ####[facility] (DEFAULT)[address] [place] [address] WBC (Bld) [#/Vol] 3.74 10*3/uL Normal 3.73-10.10 [facility] Comment on above: Performed By: #### [facility] ####[facility] (DEFAULT)[address] [place] [address] CHEM 7 (LYTES,BUN,CREA,GLUC) on 01-22-2024 Anion gap [Moles/Vol] 13 mmol/L 7 - 17 mmol/L [facility] Chloride [Moles/Vol] 109 mmol/L High 98 - 10 8 mmol/L [facility] CO2 [Moles/Vol] 23 mmol/L 21 - 31 mmol/L [facility] Creatinine [Mass/Vol] 1.10 mg/dL 0.70 - 1.30 mg/dL [facility] eGFR, CKD-EPI, Male 81 - PINF [facility] Comment on above: Reported eGFR is bas ed on the CKD-EPI 2020 equation using creatinine, age, and sex. Glucose [Mass/Vol] 84 mg/dL 70 - 99 mg/dL [facility] Interpretation and review of laboratory results Abnormal [facility] Osmolality Calc [Osmolality] 295 [facility] Potassium [Moles/Vol] 4.0 mmol/L 3.5 - 5.0 mmol/L [facility] Sodium [Moles/Vol] 141 mmol/L 135 - 145 mmol/L [facility] Urea nitrogen [Mass/Vol] 16 mg/dL 7 - 25 mg/dL [facility] Urea nitrogen/Creatinine [Mass ratio] 15 mg/mg [facility] Anion gap [Moles/Vol] 13 mmol/L Normal 7-17 [facility] Comment on above: Performed By: #### Rod BLOOM CHM7 ####[facility] (DEFAULT)[address] [place] [address] Chloride [Moles/Vol] 109 mmol/L High 98-108 [facility] Comment on above: Performed By: #### Rod BLOOM CHM7 ####[facility] (DEFAULT)[address] [place] [address] CO2 [Moles/Vol] 23 mmol/L Normal 21-31 [facility] Comment on above: Performed By: #### Rod BLOOM CHM7 ####[facility] (DEFAULT)[address] [place] [address] Creatinine [Mass/Vol] 1.10 mg/dL Normal 0.70-1.30 [facility] Comment on above: Performed By: #### Rod BLOOM CHM7 ####[facility] (DEFAULT)[address] [place] [address] GFR/1.73 sq M.predicted among non-blacks MDRD (S/P/Bld) [Vol rate/Area] 81 mL/min/{1.73_m2} Normal >=60 [facility] Comment on above: Result Comment: Repo rted eGFR is based on the CKD-EPI 2020 equation using creatinine, age, and sex. Performed By: #### TJ RAMÍREZ7 ####[facility] (DEFAULT)[address] [place] [address] Glucose [Mass/Vol] 84 mg/dL Normal 70-99 [facility] Comment on above: Performed By: #### TJ RAMÍREZ7 ####[facility] (DEFAULT)[address] [place] [address] Osmolality [Osmolality] 295 mosm/kg Normal 278-305 [facility] Comment on above: Performed By: #### TJ RAMÍREZ7 ####[facility] (DEFAULT)[address] [place] [address] Potassium [Moles/Vol] 4.0 mmol/L Normal 3.5-5.0 [facility] Comment on above: Performed By: #### NATHANIEL RAMÍREZ ####[facility] (DEFAULT)[address] [place] [address] Sodium [Moles/Vol] 141 mmol/L Normal 135-145 [facility] Comment on above: Performed By: #### TJ RAMÍREZ7 ####[facility] (DEFAULT)[address] [place] [address] Urea nitrogen [Mass/Vol] 16 mg/dL Normal 7-25 [facility] Comment on above: Performed By: #### TJ RAMÍREZ7 ####[facility] (DEFAULT)[address] [place] [address] Urea nitrogen/Creatinine [Mass ratio] 15 mg/mg Normal [facility] Comment on above: Performed By: #### TJ RAMÍREZ7 ####[facility] (DEFAULT)[address] [place] [address] MAGNESIUMon 01-22-2024 Interpretation and review of laboratory results Normal [facility] Magnesium [Mass/Vol] 2.0 mg/dL 1.6 - 2 .6 mg/dL [facility] Magnesium [Mass/Vol] 2.0 mg/dL Normal 1.6-2.6 [facility] Comment on above: Performed By: #### M MERLE CH7 ####[facility] (DEFAULT)[address] [place] [address] No Panel Informationon 01-22 [facility] PT,INR,PTTon 01-22-2024 aPTT Coag (PPP) [Time] 29.2 s [facility] INR Coag (Bld) [Relative time] 1.1 {INR} 0.9 - 1.1 [facility] Interpretation and review of laboratory results Abnormal [facility] PT Coag (PPP) [Time] 14.3 s High [facility] aPTT Coag (Bld) [Time] 29.2 s Normal 24.0-34.3 [facility] Comment on above: Performed By: #### P TPTT ####[facility] (DEFAULT)[address] [place] [address] INR Coag (PPP) [Relative time] 1.1 {INR} Normal 0.9-1.1 [facility] Comment on above: Performed By: #### P TPTT ####[facility] (DEFAULT)[address] [place] [address] PT Coag (PPP) [Time] 14.3 s High 11.9-14.2 [facility] Comment on above: Performed By: #### P TPTT ####[facility] (DEFAULT)[address] [place] [address] TACROLIMUS LEVEL, TROUGH (NH E DRUG LEVEL)Ordered By: Sheree Jensen on 01-22-2024 Interpretation and review of laboratory results Normal [facility] Tacrolimus (Bld) [Mass/Vol] 7.9 ng/mL Bone Marrow Transplant: 4.0-12.0, Therapeutic: 5.0-15.0 [facility] Method performed is a chemiluminescent microparticle immunoasssay on the [employer] i2000. The range is based on experience at [facility] and users should be aware that target concentrations vary widely depending on concomitant therapy, time post-transplant, and desired degree of immunosuppression. [facility] TACROLIMUS LEVEL, TROUGH (NH E DRUG LEVEL)on 01-22-2024 Tacrolimus, Trough 7.9 ng/mL Normal Bone Susana ow Transplant: 4.0-12.0, Therapeutic: 5.0-15.0 [facility] Comment on above: Order Comment: Pleas e draw at specified interval PRIOR to dose. Do not hold dose to wait for level. Specimens batched twice per day, (M-F) and once per day weekendsMethod performed is a chemiluminescent microparticle immunoasssay on the [employer] Reservations i2000.The range is based on experience at [facility] and users should be aware that target concentrations vary widely depending on concomitant therapy, time post-transplant, and desired degree of immunosuppression. Performed By: #### T ACRO ####[facility] (DEFAULT)[address] [place] [address] TYPE AND SCREENon 01-22-2024 ABO/RH(D) TYPE Positive [facility] ABO/RH(D) TYPE Positive Normal [facility] Comment on above: Performed By: #### X M ####[facility] (DEFAULT)[address] [place] [address] [place] Unspecified body regionOr dered By: Unassigned Pacs on 01-22-2024 [facility] Work Phone: [place] Unspecified body regionon 01-22-2024 Radiology Study observation (narrative) [facility] CBC,PLATELETSon 01-21-2024 Erythrocyte distribution width (RBC) [Ratio] 14.0 % 10.9 - 14.3 % [facility] Hematocrit (Bld) [Volume fraction] 39.4 % Low 39.6 - 48.8 % [facility] Hemoglobin (Bld) [Mass/Vol] 12.7 g/dL Low 13.4 - 16.8 g/dL [facility] Interpretation and review of laboratory results Abnormal [facility] MCH (RBC) [Entitic mass] 28.0 pg 26.1 - 33.3 pg [facility] MCHC (RBC) [Mass/Vol] 32.2 g/dL 31.9 - 36.5 g/dL [facility] MCV (RBC) [Entitic vol] 87.0 fL 79.0 - 94.5 fL [facility] Platelet mean volume (Bld) [Entitic vol] 10.2 fL 8.7 - 12.3 fL [facility] Platelets (Bld) [#/Vol] 157 10*3/uL 146 - 337 K/uL [facility] RBC (Bld) [#/Vol] 4.53 10*6/uL [facility] WBC (Bld) [#/Vol] 3.42 10*3/uL Low 3.73 - 10. 10 K/uL [facility] Hematocrit (Bld) [Volume fraction] 39.4 % Low 39.6-48.8 [facility] Comment on above: Performed By: #### [facility] ####[facility] (DEFAULT)[address] [place] [address] Hemoglobin (Bld) [Mass/Vol] 12.7 g/dL Low 13.4-16.8 [facility] Comment on above: Performed By: #### [facility] ####[facility] (DEFAULT)[address] [place] [address] MCV (RBC) [Entitic vol] 87.0 fL Normal 79.0-94.5 [facility] Comment on above: Performed By: #### H EMO ####[facility] (DEFAULT)[address] [place] [address] Mean Cell Hgb 28.0 pg Normal 26.1-33.3 [facility] Comment on above: Performed By: #### [facility] ####[facility] (DEFAULT)[address] [place] [address] Mean Cell Hgb Conc 32.2 g/dL Normal 31.9-36.5 [facility] Comment on above: Performed By: #### H EMO ####[facility] (DEFAULT)[address] [place] [address] Platelet mean volume (Bld) [Entitic vol] 10.2 fL Normal 8.7-12.3 [facility] Comment on above: Performed By: #### H EMO ####[facility] (DEFAULT)[address] [place] [address] Platelets (Bld) [#/Vol] 157 10*3/uL Normal 146-337 [facility] Comment on above: Performed By: #### H EMO ####[facility] (DEFAULT)[address] [place] [address] RBC (Bld) [#/Vol] 4.53 10*6/uL Normal 4.38-5.83 [facility] Comment on above: Performed By: #### H EMO ####[facility] (DEFAULT)[address] [place] [address] RBC Distribution 14.0 % Normal 10.9-14.3 [facility] Comment on above: Performed By: #### H EMOGC ####[facility] (DEFAULT)[address] [place] [address] WBC (Bld) [#/Vol] 3.42 10*3/uL Low 3.73-10.10 [facility] Comment on above: Performed By: #### H EMOGC ####[facility] (DEFAULT)[address] [place] [address] CHEM 7 (LYTES,BUN,CREA,GLUC) on 01-21-2024 Anion gap [Moles/Vol] 12 mmol/L 7 - 17 mmol/L [facility] Chloride [Moles/Vol] 107 mmol/L 98 - 10 8 mmol/L [facility] CO2 [Moles/Vol] 26 mmol/L 21 - 31 mmol/L [facility] Creatinine [Mass/Vol] 1.11 mg/dL 0.70 - 1.30 mg/dL [facility] eGFR, CKD-EPI, Male 80 - PINF [facility] Comment on above: Reported eGFR is bas ed on the CKD-EPI 2020 equation using creatinine, age, and sex. Glucose [Mass/Vol] 93 mg/dL 70 - 99 mg/dL [facility] Osmolality Calc [Osmolality] 295 [facility] Potassium [Moles/Vol] 3.9 mmol/L 3.5 - 5.0 mmol/L [facility] Sodium [Moles/Vol] 141 mmol/L 135 - 145 mmol/L [facility] Urea nitrogen [Mass/Vol] 15 mg/dL 7 - 25 mg/dL [facility] Urea nitrogen/Creatinine [Mass ratio] 14 mg/mg [facility] Anion gap [Moles/Vol] 12 mmol/L Normal 7-17 [facility] Comment on above: Performed By: #### NATHANIEL RAMÍREZ ####[facility] (DEFAULT)[address] [place] [address] Chloride [Moles/Vol] 107 mmol/L Normal 98-108 [facility] Comment on above: Performed By: #### NATHANIEL RAMÍREZ ####[facility] (DEFAULT)[address] [place] [address] CO2 [Moles/Vol] 26 mmol/L Normal 21-31 [facility] Comment on above: Performed By: #### NATHANIEL RAMÍREZ ####[facility] (DEFAULT)[address] [place] [address] Creatinine [Mass/Vol] 1.11 mg/dL Normal 0.70-1.30 [facility] Comment on above: Performed By: #### NATHANIEL RAMÍREZ ####[facility] (DEFAULT)[address] [place] [address] GFR/1.73 sq M.predicted among non-blacks MDRD (S/P/Bld) [Vol rate/Area] 80 mL/min/{1.73_m2} Normal >=60 [facility] Comment on above: Result Comment: Repo rted eGFR is based on the CKD-EPI 2020 equation using creatinine, age, and sex. Performed By: #### TJ RAMÍREZ7 ####[facility] (DEFAULT)[address] [place] [address] Glucose [Mass/Vol] 93 mg/dL Normal 70-99 [facility] Comment on above: Performed By: #### TJ RAMÍREZ7 ####[facility] (DEFAULT)[address] [place] [address] Osmolality [Osmolality] 295 mosm/kg Normal 278-305 [facility] Comment on above: Performed By: #### TJ RAMÍREZ7 ####[facility] (DEFAULT)[address] [place] [address] Potassium [Moles/Vol] 3.9 mmol/L Normal 3.5-5.0 [facility] Comment on above: Performed By: #### TJ RAMÍREZ7 ####[facility] (DEFAULT)[address] [place] [address] Sodium [Moles/Vol] 141 mmol/L Normal 135-145 [facility] Comment on above: Performed By: #### TJ RAMÍREZ7 ####[facility] (DEFAULT)[address] [place] [address] Urea nitrogen [Mass/Vol] 15 mg/dL Normal 7-25 [facility] Comment on above: Performed By: #### TJ RAMÍREZ7 ####[facility] (DEFAULT)[address] [place] [address] Urea nitrogen/Creatinine [Mass ratio] 14 mg/mg Normal [facility] Comment on above: Performed By: #### M TJ BLOOM7 ####[facility] (DEFAULT)[address] [place] [address] Cardiac catheterization stud yOrdered By: Kelvin Donohue on 01-21-2024 Body surface area Derived from formula 2.08 m2 [facility] Work Phone: [facility] Work Phone: Cardiac catheterization stud yon [...] with fistula occlusion Kelvin Donohue MD, MPH [facility]. Section of Advanced Heart Failure and Transplantation Division of Cardiovascular Diseases [email or web address] INVASIVE CARDIOVASCULAR PROC EDUREon 01-21-2024 INVASIVE CARDIOVASCULAR PROCEDURE Normal [facility] MAGNESIUMon 01-21-2024 Interpretation and review of laboratory results Abnormal [facility] Magnesium [Mass/Vol] 1.5 mg/dL Low 1.6 - 2 .6 mg/dL [facility] Magnesium [Mass/Vol] 1.5 mg/dL Low 1.6-2.6 [facility] Comment on above: Performed By: #### M HELEN BLOOMM7 ####[facility] (DEFAULT)[address] [place] [address] No Panel Informationon 01-21 [facility] TACROLIMUS LEVEL, TROUGH (NH E DRUG LEVEL)on 01-21-2024 Interpretation and review of laboratory results Normal [facility] Tacrolimus (Bld) [Mass/Vol] 7.2 ng/mL Bone Marrow Transplant: 4.0-12.0, Therapeutic: 5.0-15.0 [facility] Method performed is a chemiluminescent microparticle immunoasssay on the [employer] i2000. The range is based on experience at [facility] and users should be aware that target concentrations vary widely depending on concomitant therapy, time post-transplant, and desired degree of immunosuppression. [facility] Tacrolimus, Trough 7.2 ng/mL Normal Bone Susana ow Transplant: 4.0-12.0, Therapeutic: 5.0-15.0 [facility] Comment on above: Order Comment: Pleas e draw at specified interval PRIOR to dose. Do not hold dose to wait for level. Specimens batched twice per day, (M-F) and once per day weekendsMethod performed is a chemiluminescent microparticle immunoasssay on the [employer] i2000.The range is based on experience at [facility] and users should be aware that target concentrations vary widely depending on concomitant therapy, time post-transplant, and desired degree of immunosuppression. Performed By: #### T ACRO ####[facility] (DEFAULT)[address] [place] [address] CBC,PLATELETSon 01-20-2024 Erythrocyte distribution width (RBC) [Ratio] 13.8 % 10.9 - 14.3 % [facility] Hematocrit (Bld) [Volume fraction] 38.9 % Low 39.6 - 48.8 % [facility] Hemoglobin (Bld) [Mass/Vol] 12.5 g/dL Low 13.4 - 16.8 g/dL [facility] Interpretation and review of laboratory results Abnormal [facility] MCH (RBC) [Entitic mass] 28.0 pg 26.1 - 33.3 pg [facility] MCHC (RBC) [Mass/Vol] 32.1 g/dL 31.9 - 36.5 g/dL [facility] MCV (RBC) [Entitic vol] 87.2 fL 79.0 - 94.5 fL [facility] Platelet mean volume (Bld) [Entitic vol] 10.2 fL 8.7 - 12.3 fL [facility] Platelets (Bld) [#/Vol] 166 10*3/uL 146 - 337 K/uL [facility] RBC (Bld) [#/Vol] 4.46 10*6/uL [facility] WBC (Bld) [#/Vol] 3.79 10*3/uL 3.73 - 10. 10 K/uL [facility] Hematocrit (Bld) [Volume fraction] 38.9 % Low 39.6-48.8 [facility] Comment on above: Performed By: #### [facility] ####[facility] (DEFAULT)[address] [place] [address] Hemoglobin (Bld) [Mass/Vol] 12.5 g/dL Low 13.4-16.8 [facility] Comment on above: Performed By: #### H EMO ####[facility] (DEFAULT)[address] [place] [address] MCV (RBC) [Entitic vol] 87.2 fL Normal 79.0-94.5 [facility] Comment on above: Performed By: #### H EMO ####[facility] (DEFAULT)[address] [place] [address] Mean Cell Hgb 28.0 pg Normal 26.1-33.3 [facility] Comment on above: Performed By: #### H EMO ####[facility] (DEFAULT)[address] [place] [address] Mean Cell Hgb Conc 32.1 g/dL Normal 31.9-36.5 [facility] Comment on above: Performed By: #### H EMO ####[facility] (DEFAULT)[address] [place] [address] Platelet mean volume (Bld) [Entitic vol] 10.2 fL Normal 8.7-12.3 [facility] Comment on above: Performed By: #### H EMO ####[facility] (DEFAULT)[address] [place] [address] Platelets (Bld) [#/Vol] 166 10*3/uL Normal 146-337 [facility] Comment on above: Performed By: #### H EMO ####[facility] (DEFAULT)[address] [place] [address] RBC (Bld) [#/Vol] 4.46 10*6/uL Normal 4.38-5.83 [facility] Comment on above: Performed By: #### H EMO ####[facility] (DEFAULT)[address] [place] [address] RBC Distribution 13.8 % Normal 10.9-14.3 [facility] Comment on above: Performed By: #### H EMO ####[facility] (DEFAULT)[address] [place] [address] WBC (Bld) [#/Vol] 3.79 10*3/uL Normal 3.73-10.10 [facility] Comment on above: Performed By: #### H EMO ####[facility] (DEFAULT)[address] [place] [address] CHEM 7 (LYTES,BUN,CREA,GLUC) on 01-20-2024 Anion gap [Moles/Vol] 12 mmol/L 7 - 17 mmol/L [facility] Chloride [Moles/Vol] 105 mmol/L 98 - 10 8 mmol/L [facility] CO2 [Moles/Vol] 28 mmol/L 21 - 31 mmol/L [facility] Creatinine [Mass/Vol] 1.12 mg/dL 0.70 - 1.30 mg/dL [facility] eGFR, CKD-EPI, Male 79 - PINF [facility] Comment on above: Reported eGFR is bas ed on the CKD-EPI 2020 equation using creatinine, age, and sex. Glucose [Mass/Vol] 88 mg/dL 70 - 99 mg/dL [facility] Osmolality Calc [Osmolality] 294 [facility] Potassium [Moles/Vol] 3.8 mmol/L 3.5 - 5.0 mmol/L [facility] Sodium [Moles/Vol] 141 mmol/L 135 - 145 mmol/L [facility] Urea nitrogen [Mass/Vol] 15 mg/dL 7 - 25 mg/dL [facility] Urea nitrogen/Creatinine [Mass ratio] 13 mg/mg [facility] Anion gap [Moles/Vol] 12 mmol/L Normal 7-17 [facility] Comment on above: Performed By: #### TAVO RAMÍREZ, CHM7 ####[facility] (DEFAULT)[address] [place] [address] Chloride [Moles/Vol] 105 mmol/L Normal 98-108 [facility] Comment on above: Performed By: #### TAVO RAMÍREZ, CHM7 ####[facility] (DEFAULT)[address] [place] [address] CO2 [Moles/Vol] 28 mmol/L Normal 21-31 [facility] Comment on above: Performed By: #### TAVO RAMÍREZ, CHM7 ####[facility] (DEFAULT)[address] [place] [address] Creatinine [Mass/Vol] 1.12 mg/dL Normal 0.70-1.30 [facility] Comment on above: Performed By: #### TAVO RAMÍREZ, CHM7 ####[facility] (DEFAULT)[address] [place] [address] GFR/1.73 sq M.predicted among non-blacks MDRD (S/P/Bld) [Vol rate/Area] 79 mL/min/{1.73_m2} Normal >=60 [facility] Comment on above: Result Comment: Repo rted eGFR is based on the CKD-EPI 2020 equation using creatinine, age, and sex. Performed By: #### TAVO RAMÍREZ, CHM7 ####[facility] (DEFAULT)[address] [place] [address] Glucose [Mass/Vol] 88 mg/dL Normal 70-99 [facility] Comment on above: Performed By: #### TAVO RAMÍREZ, CHM7 ####[facility] (DEFAULT)[address] [place] [address] Osmolality [Osmolality] 294 mosm/kg Normal 278-305 [facility] Comment on above: Performed By: #### TAVO RAMÍREZ, CHM7 ####[facility] (DEFAULT)[address] [place] [address] Potassium [Moles/Vol] 3.8 mmol/L Normal 3.5-5.0 [facility] Comment on above: Performed By: #### TAVO RAMÍREZ, CHM7 ####[facility] (DEFAULT)[address] [place] [address] Sodium [Moles/Vol] 141 mmol/L Normal 135-145 [facility] Comment on above: Performed By: #### TAVO RAMÍREZ, CHM7 ####[facility] (DEFAULT)[address] [place] [address] Urea nitrogen [Mass/Vol] 15 mg/dL Normal 7-25 [facility] Comment on above: Performed By: #### TAVO RAMÍREZ, CHM7 ####[facility] (DEFAULT)[address] [place] [address] Urea nitrogen/Creatinine [Mass ratio] 13 mg/mg Normal [facility] Comment on above: Performed By: #### TAVO RAMÍREZ, CHM7 ####[facility] (DEFAULT)[address] [place] [address] Cardiac catheterization stud yon 01-20-2024 [facility] Radiology Study observation (narrative) [facility] Radiology Study observation (narrative) [facility] EBV BY PCR, QUANTITATIVE,BLO ODOrdered By: Charlotte Jensen on 01-20-2024 EBV DNA ESTELITA+probe (Unsp spec) [#/Vol] NINF [facility] Interpretation and review of laboratory results Normal [facility] This test was perfor med using a real time PCR assay. The dynamic range for this assay is 1000-5,000,000 IU/mL. A result <1000 IU/mL does not rule out the presence of EBV DNA in quantities below the sensitivity of this assay. This test was developed and its performance characteristics determined by [facility]. It has not been cleared or approved by the FDA. The laboratory is regulated under CLIA as qualified to perform high-complexity testing. This test is used for clinical purposes. It should not be regarded as investigational or for research. [facility] HEPATIC FUNCTION PANELon Albumin [Mass/Vol] 3.7 g/dL 3.5 - 5.0 g/dL [facility] ALP [Catalytic activity/Vol] 73 U/L 32 - 126 U/L [facility] ALT [Catalytic activity/Vol] 12 U/L 10 - 52 U/L [facility] AST [Catalytic activity/Vol] 19 U/L 10 - 39 U/L [facility] Bilirubin [Mass/Vol] 2.1 mg/dL High NINF - 1.5 mg/dL [facility] Bilirubin.direct [Mass/Vol] 0.5 mg/dL High NINF - 0.3 mg/dL [facility] Interpretation and review of laboratory results Abnormal [facility] Protein [Mass/Vol] 6.1 g/dL Low 6.4 - 8.3 g/dL [facility] Albumin [Mass/Vol] 3.7 g/dL Normal 3.5-5.0 [facility] Comment on above: Performed By: #### M MERLE HFP, CHM7 ####[facility] (DEFAULT)[address] [place] [address] ALP [Catalytic activity/Vol] 73 U/L Normal 32-126 [facility] Comment on above: Performed By: #### M MERLE, HFP, CHM7 ####[facility] (DEFAULT)[address] [place] [address] ALT [Catalytic activity/Vol] 12 U/L Normal 10-52 [facility] Comment on above: Performed By: #### M MERLE, HFP, CHM7 ####[facility] (DEFAULT)[address] [place] [address] AST [Catalytic activity/Vol] 19 U/L Normal 10-39 [facility] Comment on above: Performed By: #### M MERLE, HFP, CHM7 ####[facility] (DEFAULT)[address] [place] [address] Bilirubin [Mass/Vol] 2.1 mg/dL High <1.5 [facility] Comment on above: Performed By: #### M MERLE, HFP, CHM7 ####[facility] (DEFAULT)[address] [place] [address] Bilirubin.indirect [Mass/Vol] 0.5 mg/dL High <0.3 [facility] Comment on above: Performed By: #### M GO, HFP, CHM7 ####[facility] (DEFAULT)[address] [place] [address] Protein [Mass/Vol] 6.1 g/dL Low 6.4-8.3 [facility] Comment on above: Performed By: #### M GO, HFP, CHM7 ####[facility] (DEFAULT)[address] [place] [address] ITRACONAZOLE LEVELon 024 Hydroxyitraconazole 7.6 mcg/mL Normal [facility] Comment on above: Order Comment: Pleas e draw level at specified interval PRIOR to dose. Result Comment: ---- REFERENCE VALUE No therapeutic range established; activity and serumconcentration are similar to parent drug. ADDITIONAL INFORMATION This test was developed and its performance characteristicsdetermined by [facility] in a manner consistent with CLIArequirements. This test has not been cleared or approved bythe U.S. Food and Drug Administration.Test Performed by:[address] [address] Director: Rosendo Bose M.D. Ph.D.; CLIA# [id number] Performed By: #### Y ITCON ####U [facility] (DEFAULT)[address] [place] [address] Itraconazole 6.0 mcg/mL Normal [facility] Comment on above: Order Comment: Pleas e draw level at specified interval PRIOR to dose. Result Comment: ---- REFERENCE VALUE-------------------------->0.5 (localized infection), >1.0 (systemic infection) Performed By: #### Y ITCON ####[facility] (DEFAULT)[address] [address] MAGNESIUMon 01-20-2024 Interpretation and review of laboratory results Normal [facility] Magnesium [Mass/Vol] 1.6 mg/dL 1.6 - 2 .6 mg/dL [facility] Magnesium [Mass/Vol] 1.6 mg/dL Normal 1.6-2.6 [facility] Comment on above: Performed By: #### M MERLE, [facility], CHM7 ####[facility] (DEFAULT)[address] [place] [address] No Panel Informationon 01-20 [facility] POCT CO-OXIMETRYon Hemoglobin (Bld) [Mass/Vol] 12.8 g/dL Low 13.4 - 16.8 g/dL [facility] Interpretation and review of laboratory results Abnormal [facility] Oxyhemoglobin 69 % Low 94 - 98 % [facility] Ordering physician notified. Test performed at address of the patient encounter. [facility] Hemoglobin (Bld) [Mass/Vol] 13.3 g/dL Low 13.4 - 16.8 g/dL [facility] Interpretation and review of laboratory results Abnormal [facility] Oxyhemoglobin 69 % Low 94 - 98 % [facility] Ordering physician notified. Test performed at address of the patient encounter. [facility] PT,INR,PTTon 01-20-2024 aPTT Coag (PPP) [Time] 30.6 s [facility] INR Coag (Bld) [Relative time] 1.2 {INR} High 0.9 - 1.1 [facility] Interpretation and review of laboratory results Abnormal [facility] PT Coag (PPP) [Time] 15.5 s High [facility] aPTT Coag (Bld) [Time] 30.6 s Normal 24.0-34.3 [facility] Comment on above: Performed By: #### P TPTT ####[facility] (DEFAULT)[address] [place] [address] INR Coag (PPP) [Relative time] 1.2 {INR} High 0.9-1.1 [facility] Comment on above: Performed By: #### P TPTT ####[facility] (DEFAULT)[address] [place] [address] PT Coag (PPP) [Time] 15.5 s High 11.9-14.2 [facility] Comment on above: Performed By: #### P TPTT ####[facility] (DEFAULT)[address] [place] [address] TACROLIMUS LEVEL, TROUGH (NH E DRUG LEVEL)Ordered By: Yanira Marcum on 01-20-2024 Interpretation and review of laboratory results Normal [facility] Tacrolimus (Bld) [Mass/Vol] 7.7 ng/mL Bone Marrow Transplant: 4.0-12.0, Therapeutic: 5.0-15.0 [facility] Method performed is a chemiluminescent microparticle immunoasssay on the [employer] i2000. The range is based on experience at [facility] and users should be aware that target concentrations vary widely depending on concomitant therapy, time post-transplant, and desired degree of immunosuppression. [facility] TACROLIMUS LEVEL, TROUGH (NH E DRUG LEVEL)on 01-20-2024 Tacrolimus, Trough 7.7 ng/mL Normal Bone Susana ow Transplant: 4.0-12.0, Therapeutic: 5.0-15.0 [facility] Comment on above: Order Comment: Pleas e draw at specified interval PRIOR to dose. Do not hold dose to wait for level. Specimens batched twice per day, (M-F) and once per day weekendsMethod performed is a chemiluminescent microparticle immunoasssay on the [employer] i2000.The range is based on experience at [facility] and users should be aware that target concentrations vary widely depending on concomitant therapy, time post-transplant, and desired degree of immunosuppression. Performed By: #### T ACRO ####[facility] (DEFAULT)[address] [place] [address] CBC,PLATELETSon 01-19-2024 Erythrocyte distribution width (RBC) [Ratio] 13.9 % 10.9 - 14.3 % [facility] Hematocrit (Bld) [Volume fraction] 37.5 % Low 39.6 - 48.8 % [facility] Hemoglobin (Bld) [Mass/Vol] 12.1 g/dL Low 13.4 - 16.8 g/dL [facility] Interpretation and review of laboratory results Abnormal [facility] MCH (RBC) [Entitic mass] 28.3 pg 26.1 - 33.3 pg [facility] MCHC (RBC) [Mass/Vol] 32.3 g/dL 31.9 - 36.5 g/dL [facility] MCV (RBC) [Entitic vol] 87.8 fL 79.0 - 94.5 fL [facility] Platelet mean volume (Bld) [Entitic vol] 10.4 fL 8.7 - 12.3 fL [facility] Platelets (Bld) [#/Vol] 163 10*3/uL 146 - 337 K/uL [facility] RBC (Bld) [#/Vol] 4.27 10*6/uL Low [facility] WBC (Bld) [#/Vol] 3.69 10*3/uL Low 3.73 - 10. 10 K/uL [facility] Hematocrit (Bld) [Volume fraction] 37.5 % Low 39.6-48.8 [facility] Comment on above: Performed By: #### H [facility] ####[facility] (DEFAULT)[address] [place] [address] Hemoglobin (Bld) [Mass/Vol] 12.1 g/dL Low 13.4-16.8 [facility] Comment on above: Performed By: #### H [facility] ####[facility] (DEFAULT)[address] [place] [address] MCV (RBC) [Entitic vol] 87.8 fL Normal 79.0-94.5 [facility] Comment on above: Performed By: #### H [facility] ####[facility] (DEFAULT)[address] [place] [address] Mean Cell Hgb 28.3 pg Normal 26.1-33.3 [facility] Comment on above: Performed By: #### H [facility] ####[facility] (DEFAULT)[address] [place] [address] Mean Cell Hgb Conc 32.3 g/dL Normal 31.9-36.5 [facility] Comment on above: Performed By: #### H EMOGC ####[facility] (DEFAULT)[address] [place] [address] Platelet mean volume (Bld) [Entitic vol] 10.4 fL Normal 8.7-12.3 [facility] Comment on above: Performed By: #### H EMOGC ####[facility] (DEFAULT)[address] [place] [address] Platelets (Bld) [#/Vol] 163 10*3/uL Normal 146-337 [facility] Comment on above: Performed By: #### H EMOGC ####[facility] (DEFAULT)[address] [place] [address] RBC (Bld) [#/Vol] 4.27 10*6/uL Low 4.38-5.83 [facility] Comment on above: Performed By: #### H EMOGC ####[facility] (DEFAULT)[address] [place] [address] RBC Distribution 13.9 % Normal 10.9-14.3 [facility] Comment on above: Performed By: #### H EMOGC ####[facility] (DEFAULT)[address] [place] [address] WBC (Bld) [#/Vol] 3.69 10*3/uL Low 3.73-10.10 [facility] Comment on above: Performed By: #### H EMOGC ####[facility] (DEFAULT)[address] [place] [address] CHEM 7 (LYTES,BUN,CREA,GLUC) on 01-19-2024 Anion gap [Moles/Vol] 14 mmol/L 7 - 17 mmol/L [facility] Chloride [Moles/Vol] 106 mmol/L 98 - 10 8 mmol/L [facility] CO2 [Moles/Vol] 24 mmol/L 21 - 31 mmol/L [facility] Creatinine [Mass/Vol] 1.13 mg/dL 0.70 - 1.30 mg/dL [facility] eGFR, CKD-EPI, Male 78 - PINF [facility] Comment on above: Reported eGFR is bas ed on the CKD-EPI 2020 equation using creatinine, age, and sex. Glucose [Mass/Vol] 86 mg/dL 70 - 99 mg/dL [facility] Osmolality Calc [Osmolality] 293 [facility] Potassium [Moles/Vol] 3.8 mmol/L 3.5 - 5.0 mmol/L [facility] Sodium [Moles/Vol] 140 mmol/L 135 - 145 mmol/L [facility] Urea nitrogen [Mass/Vol] 16 mg/dL 7 - 25 mg/dL [facility] Urea nitrogen/Creatinine [Mass ratio] 14 mg/mg [facility] Anion gap [Moles/Vol] 14 mmol/L Normal 7-17 [facility] Comment on above: Performed By: #### NATHANIEL RAMÍREZ ####[facility] (DEFAULT)[address] [place] [address] Chloride [Moles/Vol] 106 mmol/L Normal 98-108 [facility] Comment on above: Performed By: ###NATHANIEL HERNANDEZ ####[facility] (DEFAULT)[address] [place] [address] CO2 [Moles/Vol] 24 mmol/L Normal 21-31 [facility] Comment on above: Performed By: #### NATHANIEL RAMÍREZ ####[facility] (DEFAULT)[address] [place] [address] Creatinine [Mass/Vol] 1.13 mg/dL Normal 0.70-1.30 [facility] Comment on above: Performed By: #### NATHANIEL RAMÍREZ ####[facility] (DEFAULT)[address] [place] [address] GFR/1.73 sq M.predicted among non-blacks MDRD (S/P/Bld) [Vol rate/Area] 78 mL/min/{1.73_m2} Normal >=60 [facility] Comment on above: Result Comment: Repo rted eGFR is based on the CKD-EPI 2020 equation using creatinine, age, and sex. Performed By: #### Rod BLOOM CHM7 ####[facility] (DEFAULT)[address] [place] [address] Glucose [Mass/Vol] 86 mg/dL Normal 70-99 [facility] Comment on above: Performed By: #### Rod BLOOM CHM7 ####[facility] (DEFAULT)[address] [place] [address] Osmolality [Osmolality] 293 mosm/kg Normal 278-305 [facility] Comment on above: Performed By: #### Rod BLOOM CHM7 ####[facility] (DEFAULT)[address] [place] [address] Potassium [Moles/Vol] 3.8 mmol/L Normal 3.5-5.0 [facility] Comment on above: Performed By: #### Rod BLOOM CHM7 ####[facility] (DEFAULT)[address] [place] [address] Sodium [Moles/Vol] 140 mmol/L Normal 135-145 [facility] Comment on above: Performed By: #### Rod BLOOM CHM7 ####[facility] (DEFAULT)[address] [place] [address] Urea nitrogen [Mass/Vol] 16 mg/dL Normal 7-25 [facility] Comment on above: Performed By: #### Rod BLOOM CHM7 ####[facility] (DEFAULT)[address] [place] [address] Urea nitrogen/Creatinine [Mass ratio] 14 mg/mg Normal [facility] Comment on above: Performed By: #### M GO, CHM7 ####[facility] (DEFAULT)[address] [place] [address] EBV BY PCR, QUANTITATIVE,BLO ODon 01-19-2024 Ebv By Pcr, Quant, Blood <1000 Normal <1000 [facility] Comment on above: Order Comment: This test was performed using a real time PCR assay. The dynamic range for this assay is 1000-5,000,000 IU/mL. A result <1000 IU/mL does not rule out the presence of EBV DNA in quantities below the sensitivity of this assay. This test was developed and its performance characteristics determined by [facility]. It has not been cleared or approved by the FDA. The laboratory is regulated under CLIA as qualified to perform high-complexity testing. This test is used for clinical purposes. It should not be regarded as investigational or for research. Performed By: #### E BVPCR ####[facility] (DEFAULT)[address] [place] [address] HISTOPLASMA AND BLASTOMYCES ANTIGEN, ENZYME IMMUNOASSAY, SERMon 01-19-2024 Histoplasma/Blastomy antonia Ag Result Not detected Not Detected [facility] Comment on above: No antigen from Hist oplasma or Blastomyces detected. False negative results may occur depending on extent of disease, and/or site of infection. Repeat testing on a new specimen if clinically indicated. Histoplasma/Blastomy antonia Ag Value Not detected ng/mL [facility] Comment on above: ADDITIONAL INFORMATION This test was developed and its performance characteristics determined by [facility] in a manner consistent with CLIA requirements. This test has not been cleared or approved by the U.S. Food and Drug Administration. Test Performed by: [facility] [id number] [place] [address] Consumer Safety Inspector: Rosendo Bose M.D. Ph.D.; CLIA# [id number] [facility] MAGNESIUMon 01-19-2024 Interpretation and review of laboratory results Normal [facility] Magnesium [Mass/Vol] 1.8 mg/dL 1.6 - 2 .6 mg/dL [facility] Magnesium [Mass/Vol] 1.8 mg/dL Normal 1.6-2.6 [facility] Comment on above: Performed By: #### M MERLE [facility] ####[facility] (DEFAULT)[address] [place] [address] No Panel Informationon 01-19 [facility] TACROLIMUS LEVEL, TROUGH (NH E DRUG LEVEL)Ordered By: Raymundo Mehta on 01-19-2024 Interpretation and review of laboratory results Normal [facility] Tacrolimus (Bld) [Mass/Vol] 6.8 ng/mL Bone Marrow Transplant: 4.0-12.0, Therapeutic: 5.0-15.0 [facility] Method performed is a chemiluminescent microparticle immunoasssay on the [employer] i2000. The range is based on experience at [facility] and users should be aware that target concentrations vary widely depending on concomitant therapy, time post-transplant, and desired degree of immunosuppression. [facility] TACROLIMUS LEVEL, TROUGH (NH E DRUG LEVEL)on 01-19-2024 Tacrolimus, Trough 6.8 ng/mL Normal Bone Susana ow Transplant: 4.0-12.0, Therapeutic: 5.0-15.0 [facility] Comment on above: Order Comment: Pleas e draw at specified interval PRIOR to dose. Do not hold dose to wait for level. Specimens batched twice per day, (M-F) and once per day weekendsMethod performed is a chemiluminescent microparticle immunoasssay on the [employer] i2000.The range is based on experience at [facility] and users should be aware that target concentrations vary widely depending on concomitant therapy, time post-transplant, and desired degree of immunosuppression. Performed By: #### T ACRO ####[facility] (DEFAULT)[address] [place] [address] US AV fistulaOrdered By: Diana Reyes on 01-19-2024 [facility] Work Phone: AV fistulaon 01-19-2024 Radiology Study observation (narrative) [facility] AFP TUMOR MARKEROrdered By: Francisca Alaniz on 01-18-2024 AFP.tumor marker [Mass/Vol] ng/mL NINF - 8.1 ng/mL [facility] Comment on above: This test was perfor med on the Powered [employer] Peak Immunoassay platform by [employer] which is a two-site sandwich chemiluminescent immunoassay. It is important to note that assays using different manufacturers and/or methods may not be comparable. Interpretation and review of laboratory results Normal [facility] CBC,PLATELETSon 01-18-2024 Erythrocyte distribution width (RBC) [Ratio] 13.9 % 10.9 - 14.3 % [facility] Hematocrit (Bld) [Volume fraction] 38.4 % Low 39.6 - 48.8 % [facility] Hemoglobin (Bld) [Mass/Vol] 12.1 g/dL Low 13.4 - 16.8 g/dL [facility] Interpretation and review of laboratory results Abnormal [facility] MCH (RBC) [Entitic mass] 27.8 pg 26.1 - 33.3 pg [facility] MCHC (RBC) [Mass/Vol] 31.5 g/dL Low 31.9 - 36.5 g/dL [facility] MCV (RBC) [Entitic vol] 88.3 fL 79.0 - 94.5 fL [facility] Platelet mean volume (Bld) [Entitic vol] 10.4 fL 8.7 - 12.3 fL [facility] Platelets (Bld) [#/Vol] 183 10*3/uL 146 - 337 K/uL [facility] RBC (Bld) [#/Vol] 4.35 10*6/uL Low [facility] WBC (Bld) [#/Vol] 3.66 10*3/uL Low 3.73 - 10. 10 K/uL [facility] Hematocrit (Bld) [Volume fraction] 38.4 % Low 39.6-48.8 [facility] Comment on above: Performed By: #### H EMOGC ####[facility] (DEFAULT)[address] [place] [address] Hemoglobin (Bld) [Mass/Vol] 12.1 g/dL Low 13.4-16.8 [facility] Comment on above: Performed By: #### H EMOGC ####[facility] (DEFAULT)[address] [place] [address] MCV (RBC) [Entitic vol] 88.3 fL Normal 79.0-94.5 [facility] Comment on above: Performed By: #### H EMOGC ####[facility] (DEFAULT)[address] [place] [address] Mean Cell Hgb 27.8 pg Normal 26.1-33.3 [facility] Comment on above: Performed By: #### H EMOGC ####[facility] (DEFAULT)[address] [place] [address] Mean Cell Hgb Conc 31.5 g/dL Low 31.9-36.5 [facility] Comment on above: Performed By: #### H EMOGC ####[facility] (DEFAULT)[address] [place] [address] Platelet mean volume (Bld) [Entitic vol] 10.4 fL Normal 8.7-12.3 [facility] Comment on above: Performed By: #### H EMOGC ####[facility] (DEFAULT)[address] [place] [address] Platelets (Bld) [#/Vol] 183 10*3/uL Normal 146-337 [facility] Comment on above: Performed By: #### H EMOGC ####[facility] (DEFAULT)[address] [place] [address] RBC (Bld) [#/Vol] 4.35 10*6/uL Low 4.38-5.83 [facility] Comment on above: Performed By: #### H [facility] ####[facility] (DEFAULT)[address] [place] [address] RBC Distribution 13.9 % Normal 10.9-14.3 [facility] Comment on above: Performed By: #### H [facility] ####[facility] (DEFAULT)[address] [place] [address] WBC (Bld) [#/Vol] 3.66 10*3/uL Low 3.73-10.10 [facility] Comment on above: Performed By: #### H [facility] ####[facility] (DEFAULT)[address] [place] [address] CHEM 7 (LYTES,BUN,CREA,GLUC) on 01-18-2024 Anion gap [Moles/Vol] 11 mmol/L 7 - 17 mmol/L [facility] Chloride [Moles/Vol] 108 mmol/L 98 - 10 8 mmol/L [facility] CO2 [Moles/Vol] 26 mmol/L 21 - 31 mmol/L [facility] Creatinine [Mass/Vol] 1.00 mg/dL 0.70 - 1.30 mg/dL [facility] eGFR, CKD-EPI, Male - PINF [facility] Comment on above: Reported eGFR is bas ed on the CKD-EPI 2020 equation using creatinine, age, and sex. Glucose [Mass/Vol] 89 mg/dL 70 - 99 mg/dL [facility] Osmolality Calc [Osmolality] 295 [facility] Potassium [Moles/Vol] 3.9 mmol/L 3.5 - 5.0 mmol/L [facility] Sodium [Moles/Vol] 141 mmol/L 135 - 145 mmol/L [facility] Urea nitrogen [Mass/Vol] 16 mg/dL 7 - 25 mg/dL [facility] Urea nitrogen/Creatinine [Mass ratio] 16 mg/mg [facility] Anion gap [Moles/Vol] 11 mmol/L Normal 7-17 [facility] Comment on above: Performed By: #### M GO, CHM7, HFP, TSHQR ####[facility] (DEFAULT)[address] [place] [address] Chloride [Moles/Vol] 108 mmol/L Normal 98-108 [facility] Comment on above: Performed By: #### M GO, CHM7, HFP, TSHQR ####[facility] (DEFAULT)[address] [place] [address] CO2 [Moles/Vol] 26 mmol/L Normal 21-31 [facility] Comment on above: Performed By: #### M GO, CHM7, HFP, TSHQR ####[facility] (DEFAULT)[address] [place] [address] Creatinine [Mass/Vol] 1.00 mg/dL Normal 0.70-1.30 [facility] Comment on above: Performed By: #### M GO, CHM7, HFP, TSHQR ####[facility] (DEFAULT)[address] [place] [address] eGFR, CKD-EPI, Male > Normal >=60 [facility] Comment on above: Result Comment: Repo rted eGFR is based on the CKD-EPI 2020 equation using creatinine, age, and sex. Performed By: #### M GO, CHM7, HFP, TSHQR ####[facility] (DEFAULT)[address] [place] [address] Glucose [Mass/Vol] 89 mg/dL Normal 70-99 [facility] Comment on above: Performed By: #### M GO, CHM7, HFP, TSHQR ####[facility] (DEFAULT)[address] [place] [address] Osmolality [Osmolality] 295 mosm/kg Normal 278-305 [facility] Comment on above: Performed By: #### M GO, CHM7, HFP, TSHQR ####[facility] (DEFAULT)[address] [place] [address] Potassium [Moles/Vol] 3.9 mmol/L Normal 3.5-5.0 [facility] Comment on above: Performed By: #### M GO, CHM7, HFP, TSHQR ####[facility] (DEFAULT)[address] [place] [address] Sodium [Moles/Vol] 141 mmol/L Normal 135-145 [facility] Comment on above: Performed By: #### M GO, CHM7, HFP, TSHQR ####[facility] (DEFAULT)[address] [place] [address] Urea nitrogen [Mass/Vol] 16 mg/dL Normal 7-25 [facility] Comment on above: Performed By: #### M GO, CHM7, HFP, TSHQR ####[facility] (DEFAULT)[address] [place] [address] Urea nitrogen/Creatinine [Mass ratio] 16 mg/mg Normal [facility] Comment on above: Performed By: #### M GO, CHM7, HFP, TSHQR ####[facility] (DEFAULT)[address] [place] [address] Cardiac echo study Procedure Ordered By: Gian Carlos on 01-18-2024 Ao ASC index 1.63 cm/m2 [facility] Work Phone: Ao peak meliton 1.46 m/s [facility] [facility] Work Phone: Ao SOV index 1.56 cm/m2 [facility] Work Phone: Ao STJ index 1.25 cm/m2 [facility] Work Phone: Ao VTI 35.74 cm [facility] Work Phone: [facility] AV LVOT peak gradient 4 mmHg [facility] Work Phone: AV mean gradient 5 mmHg [facility] Work Phone: AV peak gradient 9 [facility]HG [facility] Work [facility]: AV valve area 3.09 cm2 [facility] Work Phone: AV Velocity Ratio 0.73 [facility] Work Phone: [phone] VEGA (continuity Vmax) 3.01 cm2 [facility] Work Phone: VEGA (continuity VTI) 3.09 cm2 [facility] Work Phone: VEGA index (continuity Vmax) 1.45 m/s [facility] Work Phone: VEGA index (continuity VTI) 1.49 cm2/m2 [facility] Work Phone: Avg e' pk meliton 0.07 m/s [facility] Work Phone: Avg E/e' ratio 19.45 [facility] Work Phone: Body surface area Derived from formula 2.08 m2 [facility] Work Phone: BP EF 62 % [facility] Work Phone: DI (Vmax) 0.73 [facility] Work Phone: DI (VTI) 0.74 m/2 [facility] Work Phone: E wave decelartion time 180.38 msec [facility] Work Phone: e' lateral pk meliton 0.0789 m/s [facility] Work Phone: e' lateral pk meliton 0.08 m/s [facility] Work Phone: e' septal pk meliton 0.0653 m/s [facility] Work Phone: e' septal pk meliton 0.07 m/s [facility] Work Phone: E/A ratio 2.67 [facility] Work Phone: E/e' lateral ratio 17.62 [facility] Work Phone: E/e' septal ratio 21.29 [facility] Work Phone: EF SP 2CH 66 [facility] Work Phone: EF SP 4CH 58 [facility] Work Phone: FS 28 % 28 - 44 % [facility] Work Phone: IVC ostium 2.30 cm [facility] Work Phone: IVS 1.11 cm [facility] Work Phone: LA AREA 2CH 24.36 cm2 [facility] Work Phone: LA area 4CH 20.36 cm2 [facility] Work Phone: LA ESV BP (MOD) 64 mL [facility] Work Phone: LA ESV BP (MOD) index 31 mL/m2 [facility] Work Phone: LA ESV SP 2CH (MOD) 76 mL [facility] Work Phone: LA ESV SP 4CH (MOD) 53 mL [facility] Work Phone: LV EDV BP 180 mL [facility] Work Phone: [phone] LV EDV SP 2CH 190 mL [facility] Work Phone: LV EDV SP 4CH 166 mL [facility] Work Phone: LV ESV BP 69 mL [facility] Work Phone: [phone] LV ESV SP 2CH 65 mL [facility] Work Phone: LV ESV SP 4CH 70 mL [facility] Work Phone: LV mass 254.73 g [facility] Work Phone: LV Mass Index 122.5 g/m2 [facility] Work Phone: LV RWT 0.42 [facility] Work Phone: LV stroke volume BP (ml) 111 mL [facility] Work Phone: LV stroke volume index BP 53.37 mL/m2 [facility] Work Phone: LVIDD 5.53 cm [facility] Work Phone: LVIDS 3.97 cm [facility] Work Phone: [phone] LVOT area 4.15 cm2 [facility] Work Phone: LVOT diameter 2.30 cm [facility] Work Phone: LVOT peak meliton 1.06 m/s [facility] Work Phone: LVOT peak VTI 26.61 cm [facility] Work Phone: LVOT stroke volume 111 cm3 [facility] Work Phone: LVOT stroke volume index 53.13 ml/m2 [facility] Work Phone: Mr max meliton 4.21 m/s [facility] Work Phone: MR VTI 134.50 cm [facility] Work Phone: MV mean gradient 3 mmHg [facility] Work [facility]: MV peak gradient 11 mmHg [facility] Work Phone: MV pk A meliton 0.52 m/s [facility] Work Phone: MV pk E meliton 1.39 m/s [facility] Work Phone: MV stenosis pressure 1/2 time 58.56 ms [facility] Work Phone: MV valve area by continuity eq 2.93 cm2 [facility] Work Phone: MV valve area p 1/2 method 3.76 cm2 [facility] Work Phone: MV VTI 37.70 cm [facility] Work Phone: MVA (continuity VTI) 2.92 cm [facility] Work Phone: OSU AV VTI RATIO PRE STRESS 0.74 [facility] Work Phone: OSU ECHO LV BIPLANE SYSTOLIC VOLUME INDEX 33.17 mL/m2 [facility] Work Phone: OSU ECHO LV BP DIASTOLIC VOLUME INDEX 86.54 mL/m2 [facility] Work Phone: OSU ECHO MR PEAK GRADIENT 70.94 mmHg [facility] Work Phone: PW 1.16 cm [facility] Work Phone: RA area 4CH (MOD) 14.50 [facility]2 [facility]: RA vol index 4CH (MOD) 18.27 mL/m2 [facility] Work Phone: Right atrium volume 4 chamber method of disks 38 mL [facility] Work Phone: RV Area diastolic 33.20 cm2 [facility]: RV Area systolic 21.30 cm2 [facility] Work Phone: RV basal diam 4.52 cm [facility] Work Phone: RV Fractional area change 35.8 % [facility] Work Phone: RV long diam 8.96 cm [facility] Work Phone: RV mid diam 3.70 cm [facility] Work Phone: RV S' 22.01 cm/s [facility] Work Phone: RVOT peak gradient 4 mmHg [facility] Work Phone: RVOT peak meliton 0.96 m/s [facility] Work Phone: RVOT peak VTI 20.86 cm [facility] Work Phone: Sinus 3.24 cm [facility] Work Phone: STJ 2.61 cm [facility] Work Phone: Stroke Volume 111 cm/mL [facility] Work Phone: Stroke volume index 53 [facility] Work Phone: TAPSE 2.19 cm [facility] Work Phone: [facility] Work Phone: Cardiac echo study Procedure [...] echocardiography study was performed. Imaging system used: [employer]. Indications Indications for study: shortness of breath. [facility] Radiology Study observation (narrative) [facility] HEPATIC FUNCTION PANELon Albumin [Mass/Vol] 3.5 g/dL 3.5 - 5.0 g/dL [facility] ALP [Catalytic activity/Vol] 70 U/L 32 - 126 U/L [facility] ALT [Catalytic activity/Vol] 8 U/L Low 10 - 52 U/L [facility] AST [Catalytic activity/Vol] 20 U/L 10 - 39 U/L [facility] Bilirubin [Mass/Vol] 1.7 mg/dL High NINF - 1.5 mg/dL [facility] Bilirubin.direct [Mass/Vol] 0.4 mg/dL High NINF - 0.3 mg/dL [facility] Protein [Mass/Vol] 6.0 g/dL Low 6.4 - 8.3 g/dL [facility] Albumin [Mass/Vol] 3.5 g/dL Normal 3.5-5.0 [facility] Comment on above: Performed By: #### M GO, CHM7, HFP, TSHQR ####[facility] (DEFAULT)[address] [place] [address] ALP [Catalytic activity/Vol] 70 U/L Normal 32-126 [facility] Comment on above: Performed By: #### M GO, CHM7, HFP, TSHQR ####[facility] (DEFAULT)[address] [place] [address] ALT [Catalytic activity/Vol] 8 U/L Low 10-52 [facility] Comment on above: Performed By: #### M GO, CHM7, HFP, TSHQR ####[facility] (DEFAULT)[address] [place] [address] AST [Catalytic activity/Vol] 20 U/L Normal 10-39 [facility] Comment on above: Performed By: #### M GO, CHM7, HFP, TSHQR ####[facility] (DEFAULT)[address] [place] [address] Bilirubin [Mass/Vol] 1.7 mg/dL High <1.5 [facility] Comment on above: Performed By: #### M GO, CHM7, HFP, TSHQR ####[facility] (DEFAULT)[address] [place] [address] Bilirubin.indirect [Mass/Vol] 0.4 mg/dL High <0.3 [facility] Comment on above: Performed By: #### M GO, CHM7, HFP, TSHQR ####[facility] (DEFAULT)[address] [place] [address] Protein [Mass/Vol] 6.0 g/dL Low 6.4-8.3 [facility] Comment on above: Performed By: #### M NATHANIEL BLOOM, TAVO, TSHQR ####[facility] (DEFAULT)[address] [place] [address] MAGNESIUMon 01-18-2024 Magnesium [Mass/Vol] 1.5 mg/dL Low 1.6 - 2 .6 mg/dL [facility] Magnesium [Mass/Vol] 1.5 mg/dL Low 1.6-2.6 [facility] Comment on above: Performed By: #### M NATHANIEL BLOOM, TAVO, TSHQR ####[facility] (DEFAULT)[address] [place] [address] No Panel Informationon 01-18 Interpretation and review of laboratory results Abnormal [facility] PT,INR,PTTon 01-18-2024 aPTT Coag (PPP) [Time] 30.0 s [facility] INR Coag (Bld) [Relative time] 1.1 {INR} 0.9 - 1.1 [facility] Interpretation and review of laboratory results Abnormal [facility] PT Coag (PPP) [Time] 14.5 s High [facility] aPTT Coag (Bld) [Time] 30.0 s Normal 24.0-34.3 [facility] Comment on above: Performed By: #### P TPTT ####[facility] (DEFAULT)[address] [place] [address] INR Coag (PPP) [Relative time] 1.1 {INR} Normal 0.9-1.1 [facility] Comment on above: Performed By: #### P TPTT ####[facility] (DEFAULT)[address] [place] [address] PT Coag (PPP) [Time] 14.5 s High 11.9-14.2 [facility] Comment on above: Performed By: #### P TPTT ####[facility] (DEFAULT)[address] [place] [address] TSH W/FT4 REFLEXon 4 Interpretation and review of laboratory results Normal [facility] TSH Qn 2.660 m[IU]/L [facility] TSH 2.660 uIU/mL Normal 0.550-4.780 [facility] Comment on above: Performed By: #### M GO, CHM7, HFP, TSHQR ####[facility] (DEFAULT)[address] [place] [address] AFP TUMOR MARKERon 4 AFP Tumor Marker <2.2 Normal <8.1 [facility] Comment on above: Result Comment: This test was performed on the Powered [employer] Peak Immunoassay platform by [employer] which is a two-site sandwich chemiluminescent immunoassay. It is important to note that assays using different manufacturers and/or methods may not be comparable. Performed By: #### A FPTMR ####[facility] (DEFAULT)[address] [place] [address] DARYL AURIS SCREEN BY PCRO rdered By: Mynor Alejandro on 01-17-2024 Daryl auris Screen by PCR Not detected Not Detected [facility] Interpretation and review of laboratory results Normal [facility] This test was perfor med using a real-time PCR assay. This test was developed, and its performance characteristics determined by [facility]. It has not been cleared or approved by the FDA. The laboratory is regulated under CLIA as qualified to perform high-complexity testing. This test is used for clinical purposes. It should not be regarded as investigational or for research. [facility] CBC,PLATELETSon 01-17-2024 Erythrocyte distribution width (RBC) [Ratio] 14.0 % 10.9 - 14.3 % [facility] Hematocrit (Bld) [Volume fraction] 37.2 % Low 39.6 - 48.8 % [facility] Hemoglobin (Bld) [Mass/Vol] 12.0 g/dL Low 13.4 - 16.8 g/dL [facility] Interpretation and review of laboratory results Abnormal [facility] MCH (RBC) [Entitic mass] 27.9 pg 26.1 - 33.3 pg [facility] MCHC (RBC) [Mass/Vol] 32.3 g/dL 31.9 - 36.5 g/dL [facility] MCV (RBC) [Entitic vol] 86.5 fL 79.0 - 94.5 fL [facility] Platelet mean volume (Bld) [Entitic vol] 10.5 fL 8.7 - 12.3 fL [facility] Platelets (Bld) [#/Vol] 159 10*3/uL 146 - 337 K/uL [facility] RBC (Bld) [#/Vol] 4.30 10*6/uL Low [facility] WBC (Bld) [#/Vol] 3.69 10*3/uL Low 3.73 - 10. 10 K/uL [facility] Hematocrit (Bld) [Volume fraction] 37.2 % Low 39.6-48.8 [facility] Comment on above: Performed By: #### H [facility] ####[facility] (DEFAULT)[address] [place] [address] Hemoglobin (Bld) [Mass/Vol] 12.0 g/dL Low 13.4-16.8 [facility] Comment on above: Performed By: #### H [facility] ####[facility] (DEFAULT)[address] [place] [address] MCV (RBC) [Entitic vol] 86.5 fL Normal 79.0-94.5 [facility] Comment on above: Performed By: #### H [facility] ####[facility] (DEFAULT)[address] [place] [address] Mean Cell Hgb 27.9 pg Normal 26.1-33.3 [facility] Comment on above: Performed By: #### H EMOGC ####[facility] (DEFAULT)[address] [place] [address] Mean Cell Hgb Conc 32.3 g/dL Normal 31.9-36.5 [facility] Comment on above: Performed By: #### H EMOGC ####[facility] (DEFAULT)[address] [place] [address] Platelet mean volume (Bld) [Entitic vol] 10.5 fL Normal 8.7-12.3 [facility] Comment on above: Performed By: #### H EMOGC ####[facility] (DEFAULT)[address] [place] [address] Platelets (Bld) [#/Vol] 159 10*3/uL Normal 146-337 [facility] Comment on above: Performed By: #### H EMOGC ####[facility] (DEFAULT)[address] [place] [address] RBC (Bld) [#/Vol] 4.30 10*6/uL Low 4.38-5.83 [facility] Comment on above: Performed By: #### H EMOGC ####[facility] (DEFAULT)[address] [place] [address] RBC Distribution 14.0 % Normal 10.9-14.3 [facility] Comment on above: Performed By: #### H EMOGC ####[facility] (DEFAULT)[address] [place] [address] WBC (Bld) [#/Vol] 3.69 10*3/uL Low 3.73-10.10 [facility] Comment on above: Performed By: #### H EMOGC ####[facility] (DEFAULT)[address] [place] [address] CHEM 7 (LYTES,BUN,CREA,GLUC) on 01-17-2024 Anion gap [Moles/Vol] 13 mmol/L 7 - 17 mmol/L [facility] Chloride [Moles/Vol] 109 mmol/L High 98 - 10 8 mmol/L [facility] CO2 [Moles/Vol] 21 mmol/L 21 - 31 mmol/L [facility] Creatinine [Mass/Vol] 1.04 mg/dL 0.70 - 1.30 mg/dL [facility] eGFR, CKD-EPI, Male 86 - PINF [facility] Comment on above: Reported eGFR is bas ed on the CKD-EPI 2020 equation using creatinine, age, and sex. Glucose [Mass/Vol] 82 mg/dL 70 - 99 mg/dL [facility] Osmolality Calc [Osmolality] 292 [facility] Potassium [Moles/Vol] 4.4 mmol/L 3.5 - 5.0 mmol/L [facility] Sodium [Moles/Vol] 139 mmol/L 135 - 145 mmol/L [facility] Urea nitrogen [Mass/Vol] 17 mg/dL 7 - 25 mg/dL [facility] Urea nitrogen/Creatinine [Mass ratio] 16 mg/mg [facility] Anion gap [Moles/Vol] 13 mmol/L Normal 7-17 [facility] Comment on above: Performed By: #### C HM7, HFP, MGO ####[facility] (DEFAULT)[address] [place] [address] Chloride [Moles/Vol] 109 mmol/L High 98-108 [facility] Comment on above: Performed By: #### C HM7, HFP, MGO ####[facility] (DEFAULT)[address] [place] [address] CO2 [Moles/Vol] 21 mmol/L Normal 21-31 [facility] Comment on above: Performed By: #### C HM7, HFP, MGO ####[facility] (DEFAULT)[address] [place] [address] Creatinine [Mass/Vol] 1.04 mg/dL Normal 0.70-1.30 [facility] Comment on above: Performed By: #### TAVO GONG, MGO ####[facility] (DEFAULT)[address] [place] [address] GFR/1.73 sq M.predicted among non-blacks MDRD (S/P/Bld) [Vol rate/Area] 86 mL/min/{1.73_m2} Normal >=60 [facility] Comment on above: Result Comment: Repo rted eGFR is based on the CKD-EPI 2020 equation using creatinine, age, and sex. Performed By: #### C HMJessica, TAVO, MGO ####[facility] (DEFAULT)[address] [place] [address] Glucose [Mass/Vol] 82 mg/dL Normal 70-99 [facility] Comment on above: Performed By: #### C JASMYNE, HFP, MGO ####[facility] (DEFAULT)[address] [place] [address] Osmolality [Osmolality] 292 mosm/kg Normal 278-305 [facility] Comment on above: Performed By: #### C HMJessica, HFP, MGO ####[facility] (DEFAULT)[address] [place] [address] Potassium [Moles/Vol] 4.4 mmol/L Normal 3.5-5.0 [facility] Comment on above: Performed By: #### Chinedu HM7, HFP, MGO ####[facility] (DEFAULT)[address] [place] [address] Sodium [Moles/Vol] 139 mmol/L Normal 135-145 [facility] Comment on above: Performed By: #### Chinedu HM7, HFP, MGO ####[facility] (DEFAULT)[address] [place] [address] Urea nitrogen [Mass/Vol] 17 mg/dL Normal 7-25 [facility] Comment on above: Performed By: #### C HM7, HFP, MGO ####[facility] (DEFAULT)[address] [place] [address] Urea nitrogen/Creatinine [Mass ratio] 16 mg/mg Normal [facility] Comment on above: Performed By: #### C HM7, HFP, MGO ####[facility] (DEFAULT)[address] [place] [address] CT ABDOMEN/PELVIS WITHOUT CO NTRASTon 01-17-2024 CT ABDOMEN/PELVIS WITHOUT CONTRAST Normal [facility] CT Abdomen and Pelvis WO con [...] unremarkable. Kidneys: Severe atrophy of the bilateral [place] kidney is without hydronephrosis. Right lower quadrant [...] unremarkable. Kidneys: Severe atrophy of the bilateral [place] kidney is without hydronephrosis. Right lower quadrant [...] middle lobe. Trace left pleural effusion. [facility] Radiology Study observation (narrative) [facility] HEPATIC FUNCTION PANELon Albumin [Mass/Vol] 3.5 g/dL 3.5 - 5.0 g/dL [facility] ALP [Catalytic activity/Vol] 73 U/L 32 - 126 U/L [facility] ALT [Catalytic activity/Vol] 7 U/L Low 10 - 52 U/L [facility] AST [Catalytic activity/Vol] 25 U/L 10 - 39 U/L [facility] Bilirubin [Mass/Vol] 1.8 mg/dL High NINF - 1.5 mg/dL [facility] Bilirubin.direct [Mass/Vol] 0.3 mg/dL High NINF - 0.3 mg/dL [facility] Protein [Mass/Vol] 6.0 g/dL Low 6.4 - 8.3 g/dL [facility] Albumin [Mass/Vol] 3.5 g/dL Normal 3.5-5.0 [facility] Comment on above: Performed By: #### C HM7, HFP, MGO ####[facility] (DEFAULT)[address] [place] [address] ALP [Catalytic activity/Vol] 73 U/L Normal 32-126 [facility] Comment on above: Performed By: #### C HM7, HFP, MGO ####[facility] (DEFAULT)[address] [place] [address] ALT [Catalytic activity/Vol] 7 U/L Low 10-52 [facility] Comment on above: Performed By: #### C HM7, HFP, MGO ####[facility] (DEFAULT)[address] [place] [address] AST [Catalytic activity/Vol] 25 U/L Normal 10-39 [facility] Comment on above: Performed By: #### C HM7, HFP, MGO ####[facility] (DEFAULT)[address] [place] [address] Bilirubin [Mass/Vol] 1.8 mg/dL High <1.5 [facility] Comment on above: Performed By: #### C HM7, HFP, MGO ####[facility] (DEFAULT)[address] [place] [address] Bilirubin.indirect [Mass/Vol] 0.3 mg/dL High <0.3 [facility] Comment on above: Performed By: #### C HMJessica, TAVO, MGO ####[facility] (DEFAULT)[address] [place] [address] Protein [Mass/Vol] 6.0 g/dL Low 6.4-8.3 [facility] Comment on above: Performed By: #### C HM7, TAVO, MGO ####[facility] (DEFAULT)[address] [place] [address], [place] [address] HISTOPLASMA AND BLASTOMYCES ANTIGEN, ENZYME IMMUNOASSAY, SERMon 01-17-2024 Histoplasma/Blastomy antonia Ag Result Not detected Normal Not Detected [facility] Comment on above: Result Comment: No a ntigen from Histoplasma or Blastomyces detected. Falsenegative results may occur depending on extent of disease,and/or site of infection. Repeat testing on a new specimenif clinically indicated. Performed By: #### H CORAL ####[facility] (DEFAULT)[address] [place] [address], [place] [address] Histoplasma/Blastomy antonia Ag Value Not detected Normal [facility] Comment on above: Result Comment: ---- ADDITIONAL INFORMATION This test was developed and its performance characteristicsdetermined by [facility] in a manner consistent with CLIArequirements. This test has not been cleared or approved bythe U.S. Food and Drug Administration.Test Performed by:[facility] [place] [id number] Director: Rosendo Bose M.D. Ph.D.; CLIA# [id number] Performed By: #### H CORAL ####[facility] (DEFAULT)[address] [place] [address], [place] [address] MAGNESIUMon 01-17-2024 Interpretation and review of laboratory results Normal [facility] Magnesium [Mass/Vol] 1.7 mg/dL 1.6 - 2 .6 mg/dL [facility] Magnesium [Mass/Vol] 1.7 mg/dL Normal 1.6-2.6 [facility] Comment on above: Performed By: #### C HM7, HFP, MGO ####[facility] (DEFAULT)[address] [place] [address] No Panel Informationon 01-17 Interpretation and review of laboratory results Abnormal [facility] PT,INR,PTTon 01-17-2024 aPTT Coag (PPP) [Time] 29.9 s [facility] INR Coag (Bld) [Relative time] 1.1 {INR} 0.9 - 1.1 [facility] Interpretation and review of laboratory results Abnormal [facility] PT Coag (PPP) [Time] 14.5 s High [facility] aPTT Coag (Bld) [Time] 29.9 s Normal 24.0-34.3 [facility] Comment on above: Performed By: #### P TPTT ####[facility] (DEFAULT)[address] [place] [address] INR Coag (PPP) [Relative time] 1.1 {INR} Normal 0.9-1.1 [facility] Comment on above: Performed By: #### P TPTT ####[facility] (DEFAULT)[address] [place] [address] PT Coag (PPP) [Time] 14.5 s High 11.9-14.2 [facility] Comment on above: Performed By: #### P TPTT ####[facility] (DEFAULT)[address] [place] [address] B-TYPE NATRIURETIC PEPTIDE ( BRAIN)on 01-16-2024 Interpretation and review of laboratory results Abnormal [facility] Natriuretic peptide B (Bld) [Mass/Vol] 212 pg/mL High 0 - 100 pg/mL [facility] Natriuretic peptide B (Bld) [Mass/Vol] 212 pg/mL High 0-100 [facility] Comment on above: Performed By: #### B THEATRE INSTRUCTOR ####[facility] (DEFAULT)[address] [place] [address] CALCIUMon 01-16-2024 Calcium [Mass/Vol] 8.5 mg/dL Low 8.6 - 10. 5 mg/dL [facility] Calcium [Mass/Vol] 8.5 mg/dL Low 8.6-10.5 [facility] Comment on above: Performed By: #### C A, IPB, MGO, CHM7, HFP ####[facility] (DEFAULT)[address] [place] [address] DARYL AURIS SCREEN BY PCRo n 01-16-2024 Daryl auris Screen by PCR Not detected Normal Not Detected [facility] Comment on above: Order Comment: This test was performed using a real-time PCR assay. This test was developed, and its performance characteristics determined by [facility]. It has not been cleared or approved by the FDA. The laboratory is regulated under CLIA as qualified to perform high-complexity testing. This test is used for clinical purposes. It should not be regarded as investigational or for research. Performed By: #### C ANDIDA AURIS SCREEN BY PCR ####[facility] (DEFAULT)[address] [place] [id number] CBC AND ELECTRONIC DIFFon Basophils (Bld) [#/Vol] K/uL 0.00 - 0.09 K/uL [facility] Basophils/100 WBC (Bld) 0.6 % [facility] Differential cell count method Nom (Bld) Electronic Differential [facility] Eosinophils (Bld) [#/Vol] 0.09 10*3/uL 0.00 - 0.48 K/uL [facility] Eosinophils/100 WBC (Bld) 2.5 % [facility] Erythrocyte distribution width (RBC) [Ratio] 14.0 % 10.9 - 14.3 % [facility] Hematocrit (Bld) [Volume fraction] 37.4 % Low 39.6 - 48.8 % [facility] Hemoglobin (Bld) [Mass/Vol] 12.1 g/dL Low 13.4 - 16.8 g/dL [facility] Immature granulocytes (Bld) [#/Vol] K/uL NINF - 0.07 K/uL [facility] Immature granulocytes/100 WBC (Bld) 0.3 % [facility] Interpretation and review of laboratory results Abnormal [facility] Lymphocytes (Bld) [#/Vol] 1.16 10*3/uL 0.83 - 3.57 K/uL [facility] Lymphocytes/100 WBC (Bld) 32.0 % [facility] MCH (RBC) [Entitic mass] 28.4 pg 26.1 - 33.3 pg [facility] MCHC (RBC) [Mass/Vol] 32.4 g/dL 31.9 - 36.5 g/dL [facility] MCV (RBC) [Entitic vol] 87.8 fL 79.0 - 94.5 fL [facility] Monocytes (Bld) [#/Vol] 0.43 10*3/uL 0.24 - 0.93 K/uL [facility] Monocytes/100 WBC (Bld) 11.9 % [facility] Neutrophils (Bld) [#/Vol] 1.91 10*3/uL 1.57 - 6.19 K/uL [facility] Nucleated RBC/100 WBC (Bld) [Ratio] 0.0 % [facility] Platelet mean volume (Bld) [Entitic vol] 10.1 fL 8.7 - 12.3 fL [facility] Platelets (Bld) [#/Vol] 155 10*3/uL 146 - 337 K/uL [facility] RBC (Bld) [#/Vol] 4.26 10*6/uL Low [facility] Segmented neutrophils/100 WBC (Bld) 52.7 % [facility] WBC (Bld) [#/Vol] 3.62 10*3/uL Low 3.73 - 10. 10 K/uL [facility] Abs Baso Auto < Normal 0.00-0.09 [facility] Comment on above: Performed By: #### L [id number] ####[facility] (DEFAULT)[address] [place] [address] Basophils/100 WBC (Bld) 0.6 % Normal [facility] Comment on above: Performed By: #### L [id number] ####[facility] (DEFAULT)[address] [place] [address] DIFF STATUS Electronic Differential Normal [facility] Comment on above: Performed By: #### L [id number] ####[facility] (DEFAULT)[address] [place] [address] Eosinophils (Bld) [#/Vol] 0.09 10*3/uL Normal 0.00-0.48 [facility] Comment on above: Performed By: #### L [id number] ####[facility] (DEFAULT)[address] [place] [address] Eosinophils/100 WBC (Bld) 2.5 % Normal [facility] Comment on above: Performed By: #### L [id number] ####[facility] (DEFAULT)[address] [place] [address] Hematocrit (Bld) [Volume fraction] 37.4 % Low 39.6-48.8 [facility] Comment on above: Performed By: #### L [id number] ####[facility] (DEFAULT)[address] [place] [address] Hemoglobin (Bld) [Mass/Vol] 12.1 g/dL Low 13.4-16.8 [facility] Comment on above: Performed By: #### L [id number] ####[facility] (DEFAULT)[address] [place] [address] Immature Grans % 0.3 % Normal [facility] Comment on above: Performed By: #### L [id number] ####[facility] (DEFAULT)[address] [place] [address] Immature Grans Absolute < Normal <=0.07 [facility] Comment on above: Performed By: #### L [id number] ####[facility] (DEFAULT)[address] [place] [address] Lymphocytes (Bld) [#/Vol] 1.16 10*3/uL Normal 0.83-3.57 [facility] Comment on above: Performed By: #### L [id number] ####[facility] (DEFAULT)[address] [place] [address], [place] [address] Lymphocytes/100 WBC (Bld) 32.0 % Normal [facility] Comment on above: Performed By: #### L [id number] ####[facility] (DEFAULT)[address] [place] [address], [place] [address] MCV (RBC) [Entitic vol] 87.8 fL Normal 79.0-94.5 [facility] Comment on above: Performed By: #### L [id number] ####[facility] (DEFAULT)[address] [place] [address] Mean Cell Hgb 28.4 pg Normal 26.1-33.3 [facility] Comment on above: Performed By: #### L [id number] ####[facility] (DEFAULT)[address] [place] [address] Mean Cell Hgb Conc 32.4 g/dL Normal 31.9-36.5 [facility] Comment on above: Performed By: #### L [id number] ####[facility] (DEFAULT)[address] [place] [address] Monocytes (Bld) [#/Vol] 0.43 10*3/uL Normal 0.24-0.93 [facility] Comment on above: Performed By: #### L [id number] ####[facility] (DEFAULT)[address] [place] [address] Monocytes/100 WBC (Bld) 11.9 % Normal [facility] Comment on above: Performed By: #### L [id number] ####[facility] (DEFAULT)[address] [place] [address] Nucleated RBC 0.0 /100 WBC Normal <=0.2 [facility] Comment on above: Performed By: #### L [id number] ####[facility] (DEFAULT)[address] [place] [address] Platelet mean volume (Bld) [Entitic vol] 10.1 fL Normal 8.7-12.3 [facility] Comment on above: Performed By: #### L [id number] ####[facility] (DEFAULT)[address] [place] [address] Platelets (Bld) [#/Vol] 155 10*3/uL Normal 146-337 [facility] Comment on above: Performed By: #### L [id number] ####[facility] (DEFAULT)[address] [place] [address] RBC (Bld) [#/Vol] 4.26 10*6/uL Low 4.38-5.83 [facility] Comment on above: Performed By: #### L [id number] ####[facility] (DEFAULT)[address] [place] [address] RBC Distribution 14.0 % Normal 10.9-14.3 [facility] Comment on above: Performed By: #### L [id number] ####[facility] (DEFAULT)[address] [place] [address] Segs + Bands Auto 52.7 % Normal [facility] Comment on above: Performed By: #### L [id number] ####[facility] (DEFAULT)[address] [place] [address] Segs + Bands,Absolute Auto 1.91 K/uL Normal 1.57-6.19 [facility] Comment on above: Performed By: #### L [id number] ####[facility] (DEFAULT)[address] [place] [address] WBC (Bld) [#/Vol] 3.62 10*3/uL Low 3.73-10.10 [facility] Comment on above: Performed By: #### L [id number] ####[facility] (DEFAULT)[address] [place] [address] CHEM 7 (LYTES,BUN,CREA,GLUC) on 01-16-2024 Anion gap [Moles/Vol] 11 mmol/L 7 - 17 mmol/L [facility] Chloride [Moles/Vol] 108 mmol/L 98 - 10 8 mmol/L [facility] CO2 [Moles/Vol] 24 mmol/L 21 - 31 mmol/L [facility] Creatinine [Mass/Vol] 1.04 mg/dL 0.70 - 1.30 mg/dL [facility] eGFR, CKD-EPI, Male 86 - PINF [facility] Comment on above: Reported eGFR is bas ed on the CKD-EPI 2020 equation using creatinine, age, and sex. Glucose [Mass/Vol] 95 mg/dL 70 - 99 mg/dL [facility] Osmolality Calc [Osmolality] 293 [facility] Potassium [Moles/Vol] 4.0 mmol/L 3.5 - 5.0 mmol/L [facility] Sodium [Moles/Vol] 139 mmol/L 135 - 145 mmol/L [facility] Urea nitrogen [Mass/Vol] 19 mg/dL 7 - 25 mg/dL [facility] Urea nitrogen/Creatinine [Mass ratio] 18 mg/mg [facility] Anion gap [Moles/Vol] 11 mmol/L Normal - [facility] Comment on above: Performed By: #### C A, IPB, MGO, CHM7, HFP ####[facility] (DEFAULT)[address] [place] [address] Chloride [Moles/Vol] 108 mmol/L Normal 98-108 [facility] Comment on above: Performed By: #### C Tray, IPB, MGO, CHM7, HFP ####[facility] (DEFAULT)[address] [place] [address] CO2 [Moles/Vol] 24 mmol/L Normal 21-31 [facility] Comment on above: Performed By: #### C Tray, IPB, MGO, CHM7, HFP ####[facility] (DEFAULT)[address] [place] [address] Creatinine [Mass/Vol] 1.04 mg/dL Normal 0.70-1.30 [facility] Comment on above: Performed By: #### C Tray IPB, MGO, CHM7, HFP ####[facility] (DEFAULT)[address] [place] [address] GFR/1.73 sq M.predicted among non-blacks MDRD (S/P/Bld) [Vol rate/Area] 86 mL/min/{1.73_m2} Normal >=60 [facility] Comment on above: Result Comment: Repo rted eGFR is based on the CKD-EPI 2020 equation using creatinine, age, and sex. Performed By: #### C Tray, IPB, MGO, CHM7, HFP ####[facility] (DEFAULT)[address] [place] [address] Glucose [Mass/Vol] 95 mg/dL Normal 70-99 [facility] Comment on above: Performed By: #### C Tray IPB, MGO, CHM7, HFP ####[facility] (DEFAULT)[address] [place] [address] Osmolality [Osmolality] 293 mosm/kg Normal 278-305 [facility] Comment on above: Performed By: #### C Tray IPB, MGO, CHM7, HFP ####[facility] (DEFAULT)[address] [place] [address] Potassium [Moles/Vol] 4.0 mmol/L Normal 3.5-5.0 [facility] Comment on above: Performed By: #### C A, IPB, MGO, CHM7, HFP ####[facility] (DEFAULT)[address] [place] [address] Sodium [Moles/Vol] 139 mmol/L Normal 135-145 [facility] Comment on above: Performed By: #### C A, IPB, MGO, CHM7, HFP ####[facility] (DEFAULT)[address] [place] [address] Urea nitrogen [Mass/Vol] 19 mg/dL Normal 7-25 [facility] Comment on above: Performed By: #### C A, IPB, MGO, CHM7, HFP ####[facility] (DEFAULT)[address] [place] [address] Urea nitrogen/Creatinine [Mass ratio] 18 mg/mg Normal [facility] Comment on above: Performed By: #### C A, IPB, MGO, CHM7, HFP ####[facility] (DEFAULT)[address] [place] [address] D-DIMER,QUANTITATIVEOrdered By: Shaji Kelly on 01-16-2024 Fibrin D-dimer FEU (PPP) [Mass/Vol] 0.67 High [facility] Comment on above: The D-Dimer assay is intended for use in conjuction with a clinical pretest probability (PTP) assessment model to exclude pulmonary embolism (PE) and as an aid in the diagnosis of Deep Vein Thrombosis (DVT) in outpatients suspected of PE or DVT. For the assay in use at [facility] ([facility]), a cutoff of <0.50 mcg/mL has a Negative Predictive Value of 99.7% for exclusion of DVT in low and moderate PTP patients. Interpretation and review of laboratory results Abnormal [facility] D-DIMER,QUANTITATIVEon 01-16 D-Dimer, High Sensitivity 0.67 mcg/mL FEU High <0.50 [facility] Comment on above: Result Comment: The D-Dimer assay is intended for use in conjuction with a clinical pretest probability (PTP) assessment model to exclude pulmonary embolism (PE) and as an aid in the diagnosis of Deep Vein Thrombosis (DVT) in outpatients suspected of PE or DVT. For the assay in use at [facility] ([facility]), a cutoff of <0.50 mcg/mL has a Negative Predictive Value of 99.7% for exclusion of DVT in low and moderate PTP patients. Performed By: #### P TPTT, HSDDI ####[facility] (DEFAULT)[address] [place] [address] HEPATIC FUNCTION PANELon Albumin [Mass/Vol] 3.7 g/dL 3.5 - 5.0 g/dL [facility] ALP [Catalytic activity/Vol] 70 U/L 32 - 126 U/L [facility] ALT [Catalytic activity/Vol] 8 U/L Low 10 - 52 U/L [facility] AST [Catalytic activity/Vol] 21 U/L 10 - 39 U/L [facility] Bilirubin [Mass/Vol] 1.9 mg/dL High [facility] - 1.5 mg/dL [facility] Bilirubin.direct [Mass/Vol] 0.4 mg/dL High NINF - 0.3 mg/dL [facility] Protein [Mass/Vol] 6.1 g/dL Low 6.4 - 8.3 g/dL [facility] Albumin [Mass/Vol] 3.7 g/dL Normal 3.5-5.0 [facility] Comment on above: Performed By: #### C A, IPB, MGO, CHM7, HFP ####[facility] (DEFAULT)[address] [place] [address] ALP [Catalytic activity/Vol] 70 U/L Normal 32-126 [facility] Comment on above: Performed By: #### C Tray, IPB, MGO, CHM7, HFP ####[facility] (DEFAULT)[address] [place] [address] ALT [Catalytic activity/Vol] 8 U/L Low 10-52 [facility] Comment on above: Performed By: #### C A, IPB, MGO, CHM7, HFP ####[facility] (DEFAULT)[address] [place] [address] AST [Catalytic activity/Vol] 21 U/L Normal 10-39 [facility] Comment on above: Performed By: #### C A, IPB, MGO, CHM7, HFP ####[facility] (DEFAULT)[address] [place] [address] Bilirubin [Mass/Vol] 1.9 mg/dL High <1.5 [facility] Comment on above: Performed By: #### C A, IPB, MGO, CHM7, HFP ####[facility] (DEFAULT)[address] [place] [address] Bilirubin.indirect [Mass/Vol] 0.4 mg/dL High <0.3 [facility] Comment on above: Performed By: #### C A, IPB, MGO, CHM7, HFP ####[facility] (DEFAULT)[address] [place] [address] Protein [Mass/Vol] 6.1 g/dL Low 6.4-8.3 [facility] Comment on above: Performed By: #### C A, IPB, MGO, CHM7, HFP ####[facility] (DEFAULT)[address] [place] [address] MAGNESIUMon 01-16-2024 Magnesium [Mass/Vol] 1.7 mg/dL 1.6 - 2 .6 mg/dL [facility] Magnesium [Mass/Vol] 1.7 mg/dL Normal 1.6-2.6 [facility] Comment on above: Performed By: #### JO ANN Willis MGO, HELENM7, HFP ####[facility] (DEFAULT)[address] [place] [address] No Panel Informationon 01-16 Interpretation and review of laboratory results Abnormal [facility] Interpretation and review of laboratory results Normal [facility] PHOSPHATE, INORGANICon 01-16 Phosphate [Mass/Vol] 4.1 mg/dL 2.2 - 4 .6 mg/dL [facility] Phosphorous 4.1 mg/dL Normal 2.2-4.6 [facility] Comment on above: Performed By: #### JO ANN Willis, MGRogelio, CHM7, HFP ####[facility] (DEFAULT)[address] [place] [address] PT,INR,PTTon 01-16-2024 aPTT Coag (PPP) [Time] 29.6 s [facility] INR Coag (Bld) [Relative time] 1.2 {INR} High 0.9 - 1.1 [facility] Interpretation and review of laboratory results Abnormal [facility] PT Coag (PPP) [Time] 14.9 s High [facility] aPTT Coag (Bld) [Time] 29.6 s Normal 24.0-34.3 [facility] Comment on above: Performed By: #### P TPTT, HSDDI ####[facility] (DEFAULT)[address] [place] [address] INR Coag (PPP) [Relative time] 1.2 {INR} High 0.9-1.1 [facility] Comment on above: Performed By: #### P TPTT, HSDDI ####[facility] (DEFAULT)[address] [place] [address] PT Coag (PPP) [Time] 14.9 s High 11.9-14.2 [facility] Comment on above: Performed By: #### P TPTT, HSDDI ####[facility] (DEFAULT)[address] [place] [address] TACROLIMUS LEVEL, TROUGH (NH E DRUG LEVEL)Ordered By: Jimy Castillo on 01-16-2024 Interpretation and review of laboratory results Normal [facility] Tacrolimus (Bld) [Mass/Vol] 5.7 ng/mL Bone Marrow Transplant: 4.0-12.0, Therapeutic: 5.0-15.0 [facility] Method performed is a chemiluminescent microparticle immunoasssay on the [employer] i2000. The range is based on experience at [facility] and users should be aware that target concentrations vary widely depending on concomitant therapy, time post-transplant, and desired degree of immunosuppression. [facility] TACROLIMUS LEVEL, TROUGH (NH E DRUG LEVEL)on 01-16-2024 Tacrolimus, Trough 5.7 ng/mL Normal Bone Susana ow Transplant: 4.0-12.0, Therapeutic: 5.0-15.0 [facility] Comment on above: Order Comment: Pleas e draw at specified interval PRIOR to dose. Do not hold dose to wait for level. Specimens batched twice per day, (M-F) and once per day weekendsMethod performed is a chemiluminescent microparticle immunoasssay on the [employer] i2000.The range is based on experience at [facility] and users should be aware that target concentrations vary widely depending on concomitant therapy, time post-transplant, and desired degree of immunosuppression. Performed By: #### T ACRO ####[facility] (DEFAULT)[address] [place] [address] US ABDOMEN LIVER DOPPLERon 0 01-16-2024 US ABDOMEN LIVER DOPPLER Normal [facility] US.doppler Abdominal vessels on 01-16-2024 IMPRESSION: [...] pleural effusion. Trace right upper quadrant ascites. [facility] Radiology Study observation (narrative) [facility] US.doppler Abdominal vessels Ordered By: Iona Duran on 01-16-2024 [facility] Work Phone: XR CHEST PA AND LATERAL 2 EWSon 01-16-2024 XR CHEST PA AND LATERAL 2 VIEWS Normal [facility] XR Chest PA and Lateralon IMPRESSION: [...] Normal IMPRESSION IMPRESSION: Moderate right pleural effusion. [facility] Radiology Study observation (narrative) [facility] XR Chest PA and LateralOrder ed By: Daisha Patterson on 01-16-2024 [facility] Work Phone: ALL CBC WITH AUTO DIFFon BASOPHILS ABSOLUTE AUTO 0.0 [facility] Basophils/100 WBC (Bld) 0.5 % 0.2 - 2.0 % [facility] Eosinophils/100 WBC (Bld) 2.8 % 0.9 - 7.0 % [facility] Erythrocyte distribution width (RBC) [Ratio] 13.8 % 11.0 - 15.0 % [facility] Hematocrit (Bld) [Volume fraction] 43.7 % 42.0 - 54.0 % [facility] Hemoglobin (Bld) [Mass/Vol] 14.0 g/dL 14.0 - 18.0 g/dL [facility] IMMATURE GRANULOCYTES ABS AUTO 0.01 [facility] Immature granulocytes/100 WBC (Bld) 0.3 % 0.0 - 0.5 % [facility] LYMPHOCYTES ABSOLUTE AUTO 1.5 [facility] Lymphocytes/100 WBC (Bld) 37.5 % 20.5 - 60.0 % [facility] MCH (RBC) [Entitic mass] 28.4 pg 25.9 - 34.0 pg [facility] MCHC (RBC) [Mass/Vol] 32.0 g/dL 29.9 - 35.2 g/dL [facility] MCV (RBC) [Entitic vol] 88.6 fL 80.0 - 94.0 fL [facility] MONOCYTES ABSOLUTE AUTO 0.5 [facility] Monocytes/100 WBC (Bld) 11.9 % 1.7 - 12.0 % [facility] NEUTROPHILS ABSOLUTE AUTO 1.9 [facility] Neutrophils/100 WBC (Bld) 47.0 % 43.0 - 75.0 % [facility] Platelet mean volume (Bld) [Entitic vol] 10.3 fL 9.5 - 13.5 fL [facility] TBH EO # 0.1 [facility] PLT 180 [facility] RBC 4.93 [facility] WBC 4.0 [facility] ALL CBC WITH AUTO DIFFon BASOPHILS ABSOLUTE AUTO 0.0 [facility] Basophils/100 WBC (Bld) 0.5 % 0.2 - 2.0 % [facility] Eosinophils/100 WBC (Bld) 2.6 % 0.9 - 7.0 % [facility] Erythrocyte distribution width (RBC) [Ratio] 13.5 % 11.0 - 15.0 % [facility] Hematocrit (Bld) [Volume fraction] 43.8 % 42.0 - 54.0 % [facility] Hemoglobin (Bld) [Mass/Vol] 14.0 g/dL 14.0 - 18.0 g/dL [facility] IMMATURE GRANULOCYTES ABS AUTO 0.00 [facility] Immature granulocytes/100 WBC (Bld) 0.0 % 0.0 - 0.5 % [facility] Interpretation and review of laboratory results Abnormal [facility] LYMPHOCYTES ABSOLUTE AUTO 1.8 [facility] Lymphocytes/100 WBC (Bld) 45.2 % 20.5 - 60.0 % [facility] MCH (RBC) [Entitic mass] 27.9 pg 25.9 - 34.0 pg [facility] MCHC (RBC) [Mass/Vol] 32.0 g/dL 29.9 - 35.2 g/dL [facility] MCV (RBC) [Entitic vol] 87.4 fL 80.0 - 94.0 fL [facility] MONOCYTES ABSOLUTE AUTO 0.4 [facility] Monocytes/100 WBC (Bld) 9.6 % 1.7 - 12.0 % [facility] NEUTROPHILS ABSOLUTE AUTO 1.6 [facility] Neutrophils/100 WBC (Bld) 42.1 % Low 43.0 - 75.0 % [facility] Platelet mean volume (Bld) [Entitic vol] 9.8 fL 9.5 - 13.5 fL [facility] EO # 0.1 [facility] PLT 180 [facility] RBC 5.01 [facility] WBC 3.9 Low [facility] CHEM 7 (LYTES,BUN,CREA,GLUC) on 09-11-2023 Anion gap [Moles/Vol] 13 mmol/L 7 - 17 mmol/L [facility] Chloride [Moles/Vol] 111 mmol/L High 98 - 10 8 mmol/L [facility] CO2 [Moles/Vol] 20 mmol/L Low 21 - 31 mmol/L [facility] Creatinine [Mass/Vol] 1.13 mg/dL 0.70 - 1.30 mg/dL [facility] eGFR, CKD-EPI, Male 78 - PINF [facility] Glucose [Mass/Vol] 109 mg/dL High 70 - 99 mg/dL [facility] Interpretation and review of laboratory results Abnormal [facility] Osmolality Calc [Osmolality] 295 [facility] Potassium [Moles/Vol] 4.3 mmol/L 3.5 - 5.0 mmol/L [facility] Sodium [Moles/Vol] 140 mmol/L 135 - 145 mmol/L [facility] Urea nitrogen [Mass/Vol] 16 mg/dL 7 - 25 mg/dL [facility] Urea nitrogen/Creatinine [Mass ratio] 14 mg/mg [facility] Anion gap [Moles/Vol] 13 mmol/L Normal 7-17 [facility] Comment on above: Performed By: ###NATHANIEL HERNANDEZ ####[facility] (DEFAULT)[address] [place] [address] Chloride [Moles/Vol] 111 mmol/L High 98-108 [facility] Comment on above: Performed By: #### NATHANIEL RAMÍREZ ####[facility] (DEFAULT)[address] [place] [address] CO2 [Moles/Vol] 20 mmol/L Low 21-31 [facility] Comment on above: Performed By: #### NATHANIEL RAMÍREZ ####[facility] (DEFAULT)[address] [place] [address] Creatinine [Mass/Vol] 1.13 mg/dL Normal 0.70-1.30 [facility] Comment on above: Performed By: #### NATHANIEL RAMÍREZ ####[facility] (DEFAULT)[address] [place] [address] GFR/1.73 sq M.predicted among non-blacks MDRD (S/P/Bld) [Vol rate/Area] 78 mL/min/{1.73_m2} Normal >=60 [facility] Comment on above: Result Comment: Repo rted eGFR is based on the CKD-EPI 2020 equation using creatinine, age, and sex. Performed By: #### TJ RAMÍREZ7 ####[facility] (DEFAULT)[address] [place] [address] Glucose [Mass/Vol] 109 mg/dL High 70-99 [facility] Comment on above: Performed By: #### Rod BLOOM CHRod7 ####[facility] (DEFAULT)[address] [place] [address] Osmolality [Osmolality] 295 mosm/kg Normal 278-305 [facility] [facility] Comment on above: Performed By: #### Rod BLOOM CHM7 ####[facility] (DEFAULT)[address] [place] [address] Potassium [Moles/Vol] 4.3 mmol/L Normal 3.5-5.0 [facility] Comment on above: Performed By: #### Rod BLOOM CHM7 ####[facility] (DEFAULT)[address] [place] [address] Sodium [Moles/Vol] 140 mmol/L Normal 135-145 [facility] Comment on above: Performed By: #### Rod BLOOM CHM7 ####[facility] (DEFAULT)[address] [place] [address] Urea nitrogen [Mass/Vol] 16 mg/dL Normal 7-25 [facility] Comment on above: Performed By: #### Rod BLOOM CHM7 ####[facility] (DEFAULT)[address] [place] [address] Urea nitrogen/Creatinine [Mass ratio] 14 mg/mg Normal [facility] Comment on above: Performed By: #### Rod BLOOM CHM7 ####[facility] (DEFAULT)[address] [place] [address] GLUCOSE POCon 09-11-2023 Glucose [Mass/Vol] 108 mg/dL High 70 - 99 mg/dL [facility] Interpretation and review of laboratory results Abnormal [facility] POC Sample Type CAPBL [facility] Legionella sp identified Org specific cx Nom (Unsp spec)on 09-11-2023 Bacteria identified Cx Nom (Unsp spec) NO GROWTH DAY 7 OF [facility] MAGNESIUMon 09-11-2023 Interpretation and review of laboratory results Normal [facility] Magnesium [Mass/Vol] 1.6 mg/dL 1.6 - 2 .6 mg/dL [facility] Magnesium [Mass/Vol] 1.6 mg/dL Normal 1.6-2.6 [facility] Comment on above: Performed By: #### Rod BLOOM CHM7 ####[facility] (DEFAULT)[address] [place] [address] No Panel Informationon 09-11 [facility] TACROLIMUS LEVEL, TROUGH (NH E DRUG LEVEL)on 09-11-2023 Interpretation and review of laboratory results Normal [facility] Tacrolimus (Bld) [Mass/Vol] 11.5 ng/mL [facility] Tacrolimus, Trough 11.5 ng/mL Normal Bone Susana ow Transplant: 4.0-12.0, Therapeutic: 5.0-15.0 [facility] Comment on above: Order Comment: Pleas e draw at specified interval PRIOR to dose. Do not hold dose to wait for level. Specimens batched twice per day, (M-F) and once per day weekendsMethod performed is a chemiluminescent microparticle immunoasssay on the iwi i2000.The range is based on experience at [facility] and users should be aware that target concentrations vary widely depending on concomitant therapy, time post-transplant, and desired degree of immunosuppression. Performed By: #### T ACRO ####[facility] (DEFAULT)[address] [place] [address] CBC,PLATELETSon 09-10-2023 Erythrocyte distribution width (RBC) [Ratio] 13.9 % 10.9 - 14.3 % [facility] Hematocrit (Bld) [Volume fraction] 40.0 % 39.6 - 48.8 % [facility] Hemoglobin (Bld) [Mass/Vol] 12.7 g/dL Low 13.4 - 16.8 g/dL [facility] Interpretation and review of laboratory results Abnormal [facility] MCH (RBC) [Entitic mass] 27.3 pg 26.1 - 33.3 pg [facility] MCHC (RBC) [Mass/Vol] 31.8 g/dL Low 31.9 - 36.5 g/dL [facility] MCV (RBC) [Entitic vol] 86.0 fL 79.0 - 94.5 fL [facility] Platelet mean volume (Bld) [Entitic vol] 9.5 fL 8.7 - 12.3 fL [facility] Platelets (Bld) [#/Vol] 225 10*3/uL 146 - 337 K/uL [facility] RBC (Bld) [#/Vol] 4.65 10*6/uL [facility] WBC (Bld) [#/Vol] 6.52 10*3/uL 3.73 - 10. 10 K/uL [facility] Hematocrit (Bld) [Volume fraction] 40.0 % Normal 39.6-48.8 [facility] Comment on above: Performed By: #### H EMO ####[facility] (DEFAULT)[address] [place] [address] Hemoglobin (Bld) [Mass/Vol] 12.7 g/dL Low 13.4-16.8 [facility] Comment on above: Performed By: #### H EMOGC ####[facility] (DEFAULT)[address] [place] [address] MCV (RBC) [Entitic vol] 86.0 fL Normal 79.0-94.5 [facility] Comment on above: Performed By: #### H EMOGC ####[facility] (DEFAULT)[address] [place] [address] Mean Cell Hgb 27.3 pg Normal 26.1-33.3 [facility] Comment on above: Performed By: #### H EMOGC ####[facility] (DEFAULT)[address] [place] [address] Mean Cell Hgb Conc 31.8 g/dL Low 31.9-36.5 [facility] Comment on above: Performed By: #### H EMOGC ####[facility] (DEFAULT)[address] [place] [address] Platelet mean volume (Bld) [Entitic vol] 9.5 fL Normal 8.7-12.3 [facility] Comment on above: Performed By: #### H EMOGC ####[facility] (DEFAULT)[address] [place] [address] Platelets (Bld) [#/Vol] 225 10*3/uL Normal 146-337 [facility] Comment on above: Performed By: #### H EMOGC ####[facility] (DEFAULT)[address] [place] [address] RBC (Bld) [#/Vol] 4.65 10*6/uL Normal 4.38-5.83 [facility] Comment on above: Performed By: #### H EMOGC ####[facility] (DEFAULT)[address] [place] [address] RBC Distribution 13.9 % Normal 10.9-14.3 [facility] Comment on above: Performed By: #### H EMOGC ####[facility] (DEFAULT)[address] [place] [address] WBC (Bld) [#/Vol] 6.52 10*3/uL Normal 3.73-10.10 [facility] Comment on above: Performed By: #### H [facility] ####[facility] (DEFAULT)[address] [place] [address] CHEM 7 (LYTES,BUN,CREA,GLUC) on 09-10-2023 Anion gap [Moles/Vol] 13 mmol/L 7 - 17 mmol/L [facility] Chloride [Moles/Vol] 111 mmol/L High 98 - 10 8 mmol/L [facility] CO2 [Moles/Vol] 20 mmol/L Low 21 - 31 mmol/L [facility] Creatinine [Mass/Vol] 1.27 mg/dL 0.70 - 1.30 mg/dL [facility] eGFR, CKD-EPI, Male 68 - PINF [facility] Glucose [Mass/Vol] 100 mg/dL High 70 - 99 mg/dL [facility] Osmolality Calc [Osmolality] 293 [facility] Potassium [Moles/Vol] 4.4 mmol/L 3.5 - 5.0 mmol/L [facility] Sodium [Moles/Vol] 140 mmol/L 135 - 145 mmol/L [facility] Urea nitrogen [Mass/Vol] 12 mg/dL 7 - 25 mg/dL [facility] Urea nitrogen/Creatinine [Mass ratio] 9 mg/mg [facility] Anion gap [Moles/Vol] 13 mmol/L Normal 7-17 [facility] Comment on above: Performed By: #### NATHANIEL RAMÍREZ, HFP ####[facility] (DEFAULT)[address] [place] [address] Chloride [Moles/Vol] 111 mmol/L High 98-108 [facility] Comment on above: Performed By: #### NATHANIEL RAMÍREZ, HFP ####[facility] (DEFAULT)[address] [place] [address] CO2 [Moles/Vol] 20 mmol/L Low 21-31 [facility] Comment on above: Performed By: #### NATHANIEL RAMÍREZ, HFP ####[facility] (DEFAULT)[address] [place] [address] Creatinine [Mass/Vol] 1.27 mg/dL Normal 0.70-1.30 [facility] Comment on above: Performed By: #### NATHANIEL RAMÍREZ, HFP ####[facility] (DEFAULT)[address] [place] [address] GFR/1.73 sq M.predicted among non-blacks MDRD (S/P/Bld) [Vol rate/Area] 68 mL/min/{1.73_m2} Normal >=60 [facility] Comment on above: Result Comment: Repo rted eGFR is based on the CKD-EPI 2020 equation using creatinine, age, and sex. Performed By: #### NATHANIEL RAMÍREZ, HFP ####[facility] (DEFAULT)[address] [place] [address] Glucose [Mass/Vol] 100 mg/dL High 70-99 [facility] Comment on above: Performed By: #### NATHANIEL RAMÍREZ, HFP ####[facility] (DEFAULT)[address] [place] [address] Osmolality [Osmolality] 293 mosm/kg Normal 278-305 [facility] Comment on above: Performed By: #### NATHANIEL RAMÍREZ, HFP ####[facility] (DEFAULT)[address] [place] [address] Potassium [Moles/Vol] 4.4 mmol/L Normal 3.5-5.0 [facility] Comment on above: Performed By: #### NATHANIEL RAMÍREZ, HFP ####[facility] (DEFAULT)[address] [place] [address] Sodium [Moles/Vol] 140 mmol/L Normal 135-145 [facility] Comment on above: Performed By: #### NATHANIEL RAMÍREZ, HFP ####[facility] (DEFAULT)[address] [place] [address] Urea nitrogen [Mass/Vol] 12 mg/dL Normal 7-25 [facility] Comment on above: Performed By: #### NATHANIEL RAMÍREZ, HFP ####[facility] (DEFAULT)[address] [place] [address] Urea nitrogen/Creatinine [Mass ratio] 9 mg/mg Normal [facility] Comment on above: Performed By: #### NATHANIEL RAMÍREZ, HFP ####[facility] (DEFAULT)[address] [place] [address] HEPATIC FUNCTION PANELon Albumin [Mass/Vol] 3.3 g/dL Low 3.5 - 5.0 g/dL [facility] ALP [Catalytic activity/Vol] 143 U/L High 32 - 126 U/L [facility] ALT [Catalytic activity/Vol] 28 U/L 10 - 52 U/L [facility] AST [Catalytic activity/Vol] 29 U/L 10 - 39 U/L [facility] Bilirubin [Mass/Vol] 0.9 mg/dL [facility] 1.[facility] mg/dL [facility] Bilirubin.direct [Mass/Vol] 0.2 mg/dL NINF - 0.3 mg/dL [facility] Protein [Mass/Vol] 6.8 g/dL 6.4 - 8.3 g/dL [facility] Albumin [Mass/Vol] 3.3 g/dL Low 3.5-5.0 [facility] Comment on above: Performed By: #### NATHANIEL RAMÍREZ, HFP ####[facility] (DEFAULT)[address] [place] [address] ALP [Catalytic activity/Vol] 143 U/L High 32-126 [facility] Comment on above: Performed By: #### M HELEN BLOOMM7, HFP ####[facility] (DEFAULT)[address] [place] [address] ALT [Catalytic activity/Vol] 28 U/L Normal 10-52 [facility] Comment on above: Performed By: #### M HELEN BLOOMM7, HFP ####[facility] (DEFAULT)[address] [place] [address] AST [Catalytic activity/Vol] 29 U/L Normal 10-39 [facility] Comment on above: Performed By: #### M TJ BLOOM7, HFP ####[facility] (DEFAULT)[address] [place] [address] Bilirubin [Mass/Vol] 0.9 mg/dL Normal <1.5 [facility] Comment on above: Performed By: #### M TJ BLOOM7, HFP ####[facility] (DEFAULT)[address] [place] [address] Bilirubin.indirect [Mass/Vol] 0.2 mg/dL Normal <0.3 [facility] Comment on above: Performed By: #### M TJ BLOOM7, HFP ####[facility] (DEFAULT)[address] [place] [address] Protein [Mass/Vol] 6.8 g/dL Normal 6.4-8.3 [facility] Comment on above: Performed By: #### M MERLE CHM7, HFP ####[facility] (DEFAULT)[address] [place] [address] MAGNESIUMon 09-10-2023 Interpretation and review of laboratory results Normal [facility] Magnesium [Mass/Vol] 1.9 mg/dL 1.6 - 2 .6 mg/dL [facility] Magnesium [Mass/Vol] 1.9 mg/dL Normal 1.6-2.6 [facility] Comment on above: Performed By: #### M HELEN BLOOMM7, HFP ####[facility] (DEFAULT)[address] [place] [address] No Panel Informationon 09-10 Interpretation and review of laboratory results Abnormal [facility] TACROLIMUS LEVEL, TROUGH (NH E DRUG LEVEL)Ordered By: Jimy Castillo on 09-10-2023 Interpretation and review of laboratory results Normal [facility] Tacrolimus (Bld) [Mass/Vol] 11.8 ng/mL [facility] TACROLIMUS LEVEL, TROUGH (NH E DRUG LEVEL)on 09-10-2023 Tacrolimus, Trough 11.8 ng/mL Normal Bone Susana ow Transplant: 4.0-12.0, Therapeutic: 5.0-15.0 [facility] Comment on above: Order Comment: Pleas e draw at specified interval PRIOR to dose. Do not hold dose to wait for level. Specimens batched twice per day, (M-) and once per day weekendsMethod performed is a chemiluminescent microparticle immunoasssay on the [employer] i2000.The range is based on experience at [facility] and users should be aware that target concentrations vary widely depending on concomitant therapy, time post-transplant, and desired degree of immunosuppression. Performed By: #### T ACRO ####[facility] (DEFAULT)[address] [place] [address] CHEM 7 (LYTES,BUN,CREA,GLUC) on 09-09-2023 Anion gap [Moles/Vol] 14 mmol/L 7 - 17 mmol/L [facility] Chloride [Moles/Vol] 113 mmol/L High 98 - 10 8 mmol/L [facility] CO2 [Moles/Vol] 18 mmol/L Low 21 - 31 mmol/L [facility] Creatinine [Mass/Vol] 1.03 mg/dL 0.70 - 1.30 mg/dL [facility] eGFR, CKD-EPI, Male 87 - PINF [facility] Glucose [Mass/Vol] 106 mg/dL High 70 - 99 mg/dL [facility] Interpretation and review of laboratory results Abnormal [facility] Osmolality Calc [Osmolality] 294 [facility] Potassium [Moles/Vol] 4.0 mmol/L 3.5 - 5.0 mmol/L [facility] Sodium [Moles/Vol] 141 mmol/L 135 - 145 mmol/L [facility] Urea nitrogen [Mass/Vol] 10 mg/dL 7 - 25 mg/dL [facility] Urea nitrogen/Creatinine [Mass ratio] 10 mg/mg [facility] Anion gap [Moles/Vol] 14 mmol/L Normal 7-17 [facility] Comment on above: Performed By: #### JO ANN RAMÍREZ CHM7 ####[facility] (DEFAULT)[address] [place] [address] Chloride [Moles/Vol] 113 mmol/L High 98-108 [facility] Comment on above: Performed By: #### JO ANN RAMÍREZ CHM7 ####[facility] (DEFAULT)[address] [place] [address] CO2 [Moles/Vol] 18 mmol/L Low 21-31 [facility] Comment on above: Performed By: #### JO ANN RAMÍREZ CHM7 ####[facility] (DEFAULT)[address] [place] [address] Creatinine [Mass/Vol] 1.03 mg/dL Normal 0.70-1.30 [facility] Comment on above: Performed By: #### JO ANN RAMÍREZ CHRod7 ####[facility] (DEFAULT)[address] [place] [address] GFR/1.73 sq M.predicted among non-blacks MDRD (S/P/Bld) [Vol rate/Area] 87 mL/min/{1.73_m2} Normal >=60 [facility] Comment on above: Result Comment: Repo rted eGFR is based on the CKD-EPI 2020 equation using creatinine, age, and sex. Performed By: #### JO ANN RAMÍREZ CHM7 ####[facility] (DEFAULT)[address] [place] [address] Glucose [Mass/Vol] 106 mg/dL High 70-99 [facility] Comment on above: Performed By: #### JO ANN RAMÍREZ, CHM7 ####[facility] (DEFAULT)[address] [place] [address] Osmolality [Osmolality] 294 mosm/kg Normal 278-305 [facility] Comment on above: Performed By: #### JO ANN RAMÍREZ, CHM7 ####[facility] (DEFAULT)[address] [place] [address] Potassium [Moles/Vol] 4.0 mmol/L Normal 3.5-5.0 [facility] Comment on above: Performed By: #### JO ANN RAMÍREZ, CHM7 ####[facility] (DEFAULT)[address] [place] [address] Sodium [Moles/Vol] 141 mmol/L Normal 135-145 [facility] Comment on above: Performed By: #### JO ANN RAMÍREZ, CHM7 ####[facility] (DEFAULT)[address] [place] [address] Urea nitrogen [Mass/Vol] 10 mg/dL Normal 7-25 [facility] Comment on above: Performed By: #### JO ANN RAMÍREZ, CHM7 ####[facility] (DEFAULT)[address] [place] [address] Urea nitrogen/Creatinine [Mass ratio] 10 mg/mg Normal [facility] Comment on above: Performed By: #### JO ANN RAMÍREZ, CHM7 ####[facility] (DEFAULT)[address] [place] [address] MAGNESIUMon 09-09-2023 Magnesium [Mass/Vol] 1.6 mg/dL 1.6 - 2 .6 mg/dL [facility] Magnesium [Mass/Vol] 1.6 mg/dL Normal 1.6-2.6 [facility] Comment on above: Performed By: #### M JO ANN BLOOM CHM7 ####[facility] (DEFAULT)[address] [place] [address] No Panel Informationon 09-09 Interpretation and review of laboratory results Normal [facility] PHOSPHATE, INORGANICon 09-09 Phosphate [Mass/Vol] 3.8 mg/dL 2.2 - 4 .6 mg/dL [facility] Phosphorous 3.8 mg/dL Normal 2.2-4.6 [facility] Comment on above: Performed By: #### M JO ANN BLOOM CHM7 ####[facility] (DEFAULT)[address] [place] [address] TACROLIMUS LEVEL, TROUGH (NH E DRUG LEVEL)on 09-09-2023 Interpretation and review of laboratory results Normal [facility] Tacrolimus (Bld) [Mass/Vol] 9.2 ng/mL [facility] Tacrolimus, Trough 9.2 ng/mL Normal Bone Susana ow Transplant: 4.0-12.0, Therapeutic: 5.0-15.0 [facility] Comment on above: Order Comment: Pleas e draw at specified interval PRIOR to dose. Do not hold dose to wait for level. Specimens batched twice per day, (M-) and once per day weekendsMethod performed is a chemiluminescent microparticle immunoasssay on the [employer] i2000.The range is based on experience at [facility] and users should be aware that target concentrations vary widely depending on concomitant therapy, time post-transplant, and desired degree of immunosuppression. Performed By: #### T ACRO ####[facility] (DEFAULT)[address] [place] [address] CBC,PLATELETSon 09-08-2023 Erythrocyte distribution width (RBC) [Ratio] 13.6 % 10.9 - 14.3 % [facility] Hematocrit (Bld) [Volume fraction] 36.1 % Low 39.6 - 48.8 % [facility] Hemoglobin (Bld) [Mass/Vol] 11.6 g/dL Low 13.4 - 16.8 g/dL [facility] Interpretation and review of laboratory results Abnormal [facility] MCH (RBC) [Entitic mass] 27.4 pg 26.1 - 33.3 pg [facility] MCHC (RBC) [Mass/Vol] 32.1 g/dL 31.9 - 36.5 g/dL [facility] MCV (RBC) [Entitic vol] 85.1 fL 79.0 - 94.5 fL [facility] Platelet mean volume (Bld) [Entitic vol] 9.5 fL 8.7 - 12.3 fL [facility] Platelets (Bld) [#/Vol] 182 10*3/uL 146 - 337 K/uL [facility] RBC (Bld) [#/Vol] 4.24 10*6/uL Low [facility] WBC (Bld) [#/Vol] 4.59 10*3/uL 3.73 - 10. 10 K/uL [facility] Hematocrit (Bld) [Volume fraction] 36.1 % Low 39.6-48.8 [facility] Comment on above: Performed By: #### H [facility] ####[facility] (DEFAULT)[address] [place] [address] Hemoglobin (Bld) [Mass/Vol] 11.6 g/dL Low 13.4-16.8 [facility] Comment on above: Performed By: #### H [facility] ####[facility] (DEFAULT)[address] [place] [address] MCV (RBC) [Entitic vol] 85.1 fL Normal 79.0-94.5 [facility] Comment on above: Performed By: #### H [facility] ####[facility] (DEFAULT)[address] [place] [address] Mean Cell Hgb 27.4 pg Normal 26.1-33.3 [facility] Comment on above: Performed By: #### H EMOGC ####[facility] (DEFAULT)[address] [place] [address] Mean Cell Hgb Conc 32.1 g/dL Normal 31.9-36.5 [facility] Comment on above: Performed By: #### H EMOGC ####[facility] (DEFAULT)[address] [place] [address] Platelet mean volume (Bld) [Entitic vol] 9.5 fL Normal 8.7-12.3 [facility] Comment on above: Performed By: #### H EMOGC ####[facility] (DEFAULT)[address] [place] [address] Platelets (Bld) [#/Vol] 182 10*3/uL Normal 146-337 [facility] Comment on above: Performed By: #### H EMO ####[facility] (DEFAULT)[address] [place] [address] RBC (Bld) [#/Vol] 4.24 10*6/uL Low 4.38-5.83 [facility] Comment on above: Performed By: #### H EMOGC ####[facility] (DEFAULT)[address] [place] [address] RBC Distribution 13.6 % Normal 10.9-14.3 [facility] Comment on above: Performed By: #### H EMOGC ####[facility] (DEFAULT)[address] [place] [address] WBC (Bld) [#/Vol] 4.59 10*3/uL Normal 3.73-10.10 [facility] Comment on above: Performed By: #### H EMOGC ####[facility] (DEFAULT)[address] [place] [address] CHEM 7 (LYTES,BUN,CREA,GLUC) on 09-08-2023 Anion gap [Moles/Vol] 12 mmol/L 7 - 17 mmol/L [facility] Chloride [Moles/Vol] 113 mmol/L High 98 - 10 8 mmol/L [facility] CO2 [Moles/Vol] 21 mmol/L 21 - 31 mmol/L [facility] Creatinine [Mass/Vol] 1.14 mg/dL 0.70 - 1.30 mg/dL [facility] eGFR, CKD-EPI, Male 77 - PINF [facility] Glucose [Mass/Vol] 107 mg/dL High 70 - 99 mg/dL [facility] Osmolality Calc [Osmolality] 296 [facility] Potassium [Moles/Vol] 3.9 mmol/L 3.5 - 5.0 mmol/L [facility] Sodium [Moles/Vol] 142 mmol/L 135 - 145 mmol/L [facility] Urea nitrogen [Mass/Vol] 11 mg/dL 7 - 25 mg/dL [facility] Urea nitrogen/Creatinine [Mass ratio] 10 mg/mg [facility] Anion gap [Moles/Vol] 12 mmol/L Normal 7-17 [facility] Comment on above: Performed By: #### JO NAN RAMÍREZ, HELENM7, HFP ####[facility] (DEFAULT)[address] [place] [address] Chloride [Moles/Vol] 113 mmol/L High 98-108 [facility] Comment on above: Performed By: #### JO ANN RAMÍREZ, CHM7, HFP ####[facility] (DEFAULT)[address] [place] [address] CO2 [Moles/Vol] 21 mmol/L Normal 21-31 [facility] Comment on above: Performed By: #### JO ANN RAMÍREZ, CHM7, HFP ####[facility] (DEFAULT)[address] [place] [address] Creatinine [Mass/Vol] 1.14 mg/dL Normal 0.70-1.30 [facility] Comment on above: Performed By: #### JO ANN RAMÍREZ CHM7, HFP ####[facility] (DEFAULT)[address] [place] [address] GFR/1.73 sq M.predicted among non-blacks MDRD (S/P/Bld) [Vol rate/Area] 77 mL/min/{1.73_m2} Normal >=60 [facility] Comment on above: Result Comment: Repo rted eGFR is based on the CKD-EPI 2020 equation using creatinine, age, and sex. Performed By: #### JO ANN RAMÍREZ, HELENM7, HFP ####[facility] (DEFAULT)[address] [place] [address] Glucose [Mass/Vol] 107 mg/dL High 70-99 [facility] Comment on above: Performed By: #### JO ANN RAMÍREZ, CHM7, HFP ####[facility] (DEFAULT)[address] [place] [address] Osmolality [Osmolality] 296 mosm/kg Normal 278-305 [facility] Comment on above: Performed By: #### JO ANN RAMÍREZ, CHM7, HFP ####[facility] (DEFAULT)[address] [place] [address] Potassium [Moles/Vol] 3.9 mmol/L Normal 3.5-5.0 [facility] Comment on above: Performed By: #### JO ANN RAMÍREZ, CHM7, HFP ####[facility] (DEFAULT)[address] [place] [address] Sodium [Moles/Vol] 142 mmol/L Normal 135-145 [facility] Comment on above: Performed By: #### CASTRO RAMÍREZB, CHM7, HFP ####[facility] (DEFAULT)[address] [place] [address] Urea nitrogen [Mass/Vol] 11 mg/dL Normal 7-25 [facility] Comment on above: Performed By: #### M MERLE, IPB, CHM7, HFP ####[facility] (DEFAULT)[address] [place] [address] Urea nitrogen/Creatinine [Mass ratio] 10 mg/mg Normal [facility] Comment on above: Performed By: #### M MERLE, IPB, CHM7, HFP ####[facility] (DEFAULT)[address] [place] [address] HEPATIC FUNCTION PANELon Albumin [Mass/Vol] 2.9 g/dL Low 3.5 - 5.0 g/dL [facility] [facility] ALP [Catalytic activity/Vol] 133 U/L High 32 - 126 U/L [facility] ALT [Catalytic activity/Vol] 23 U/L 10 - 52 U/L [facility] AST [Catalytic activity/Vol] 23 U/L 10 - 39 U/L [facility] Bilirubin [Mass/Vol] 0.8 mg/dL NINF - 1.5 mg/dL [facility] Bilirubin.direct [Mass/Vol] 0.2 mg/dL [facility] - 0.3 mg/dL [facility] Protein [Mass/Vol] 5.9 g/dL Low 6.4 - 8.3 g/dL [facility] Albumin [Mass/Vol] 2.9 g/dL Low 3.5-5.0 [facility] Comment on above: Performed By: #### M MERLE, IPB, CHM7, HFP ####[facility] (DEFAULT)[address] [place] [address] ALP [Catalytic activity/Vol] 133 U/L High 32-126 [facility] Comment on above: Performed By: #### M GO, IPB, CHM7, HFP ####[facility] (DEFAULT)[address] [place] [address] ALT [Catalytic activity/Vol] 23 U/L Normal 10-52 [facility] Comment on above: Performed By: #### M GO, IPB, CHM7, HFP ####[facility] (DEFAULT)[address] [place] [address] AST [Catalytic activity/Vol] 23 U/L Normal 10-39 [facility] Comment on above: Performed By: #### M GO, IPB, CHM7, HFP ####[facility] (DEFAULT)[address] [place] [address] Bilirubin [Mass/Vol] 0.8 mg/dL Normal <1.5 [facility] Comment on above: Performed By: #### M GO, IPB, CHM7, HFP ####[facility] (DEFAULT)[address] [facility] [place] [address] Bilirubin.indirect [Mass/Vol] 0.2 mg/dL Normal <0.3 [facility] Comment on above: Performed By: #### M GO, IPB, CHM7, HFP ####[facility] (DEFAULT)[address] [place] [address] Protein [Mass/Vol] 5.9 g/dL Low 6.4-8.3 [facility] Comment on above: Performed By: #### M GO, IPB, CHM7, HFP ####[facility] (DEFAULT)[address] [place] [address] MAGNESIUMon 09-08-2023 Interpretation and review of laboratory results Normal [facility] Magnesium [Mass/Vol] 1.8 mg/dL 1.6 - 2 .6 mg/dL [facility] Magnesium [Mass/Vol] 1.8 mg/dL Normal 1.6-2.6 [facility] Comment on above: Performed By: #### M GO, IPB, CHM7, HFP ####[facility] (DEFAULT)[address] [place] [address] No Panel Informationon 09-08 Interpretation and review of laboratory results Abnormal [facility] PHOSPHATE, INORGANICon 09-08 Interpretation and review of laboratory results Normal [facility] Phosphate [Mass/Vol] 4.1 mg/dL 2.2 - 4 .6 mg/dL [facility] Phosphorous 4.1 mg/dL Normal 2.2-4.6 [facility] Comment on above: Performed By: #### M GO, IPB, CHM7, HFP ####[facility] (DEFAULT)[address] [place] [address] TACROLIMUS LEVEL, TROUGH (NH E DRUG LEVEL)on 09-08-2023 Interpretation and review of laboratory results Normal [facility] Tacrolimus (Bld) [Mass/Vol] 8.5 ng/mL [facility] Tacrolimus, Trough 8.5 ng/mL Normal Bone Susana ow Transplant: 4.0-12.0, Therapeutic: 5.0-15.0 [facility] Comment on above: Order Comment: Pleas e draw at specified interval PRIOR to dose. Do not hold dose to wait for level. Specimens batched twice per day, (M-) and once per day weekendsMethod performed is a chemiluminescent microparticle immunoasssay on the [employer] i2000.The range is based on experience at [facility] and users should be aware that target concentrations vary widely depending on concomitant therapy, time post-transplant, and desired degree of immunosuppression. Performed By: #### T ACRO ####[facility] (DEFAULT)[address] [place] [address] CBC,PLATELETSon 09-07-2023 Erythrocyte distribution width (RBC) [Ratio] 13.5 % 10.9 - 14.3 % [facility] Hematocrit (Bld) [Volume fraction] 37.1 % Low 39.6 - 48.8 % [facility] Hemoglobin (Bld) [Mass/Vol] 11.9 g/dL Low 13.4 - 16.8 g/dL [facility] Interpretation and review of laboratory results Abnormal [facility] MCH (RBC) [Entitic mass] 27.7 pg 26.1 - 33.3 pg [facility] MCHC (RBC) [Mass/Vol] 32.1 g/dL 31.9 - 36.5 g/dL [facility] MCV (RBC) [Entitic vol] 86.5 fL 79.0 - 94.5 fL [facility] Platelet mean volume (Bld) [Entitic vol] 9.6 fL 8.7 - 12.3 fL [facility] Platelets (Bld) [#/Vol] 176 10*3/uL 146 - 337 K/uL [facility] RBC (Bld) [#/Vol] 4.29 10*6/uL Low [facility] WBC (Bld) [#/Vol] 4.10 10*3/uL 3.73 - 10. 10 K/uL [facility] Hematocrit (Bld) [Volume fraction] 37.1 % Low 39.6-48.8 [facility] Comment on above: Performed By: #### [facility] ####[facility] (DEFAULT)[address] [place] [address] Hemoglobin (Bld) [Mass/Vol] 11.9 g/dL Low 13.4-16.8 [facility] Comment on above: Performed By: #### H EMO ####[facility] (DEFAULT)[address] [place] [address] MCV (RBC) [Entitic vol] 86.5 fL Normal 79.0-94.5 [facility] Comment on above: Performed By: #### H EMO ####[facility] (DEFAULT)[address] [place] [address] Mean Cell Hgb 27.7 pg Normal 26.1-33.3 [facility] Comment on above: Performed By: #### H EMO ####[facility] (DEFAULT)[address] [place] [address] Mean Cell Hgb Conc 32.1 g/dL Normal 31.9-36.5 [facility] Comment on above: Performed By: #### H EMO ####[facility] (DEFAULT)[address] [place] [address] Platelet mean volume (Bld) [Entitic vol] 9.6 fL Normal 8.7-12.3 [facility] Comment on above: Performed By: #### H EMO ####[facility] (DEFAULT)[address] [place] [address] Platelets (Bld) [#/Vol] 176 10*3/uL Normal 146-337 [facility] Comment on above: Performed By: #### H EMO ####[facility] (DEFAULT)[address] [place] [address] RBC (Bld) [#/Vol] 4.29 10*6/uL Low 4.38-5.83 [facility] Comment on above: Performed By: #### H EMO ####[facility] (DEFAULT)[address] [place] [address] RBC Distribution 13.5 % Normal 10.9-14.3 [facility] Comment on above: Performed By: #### H EMOGC ####[facility] (DEFAULT)[address] [place] [address] WBC (Bld) [#/Vol] 4.10 10*3/uL Normal 3.73-10.10 [facility] Comment on above: Performed By: #### H EMO ####[facility] (DEFAULT)[address] [place] [address] CHEM 7 (LYTES,BUN,CREA,GLUC) on 09-07-2023 Anion gap [Moles/Vol] 13 mmol/L 7 - 17 mmol/L [facility] Chloride [Moles/Vol] 113 mmol/L High 98 - 10 8 mmol/L [facility] CO2 [Moles/Vol] 19 mmol/L Low 21 - 31 mmol/L [facility] Creatinine [Mass/Vol] 1.22 mg/dL 0.70 - 1.30 mg/dL [facility] eGFR, CKD-EPI, Male 71 - PINF [facility] Glucose [Mass/Vol] 107 mg/dL High 70 - 99 mg/dL [facility] Osmolality Calc [Osmolality] 295 [facility] Potassium [Moles/Vol] 3.9 mmol/L 3.5 - 5.0 mmol/L [facility] Sodium [Moles/Vol] 141 mmol/L 135 - 145 mmol/L [facility] Urea nitrogen [Mass/Vol] 13 mg/dL 7 - 25 mg/dL [facility] Urea nitrogen/Creatinine [Mass ratio] 11 mg/mg [facility] Anion gap [Moles/Vol] 13 mmol/L Normal 7-17 [facility] Comment on above: Performed By: #### C HM7, IPB, MGO, HFP ####[facility] (DEFAULT)[address] [place] [address] Chloride [Moles/Vol] 113 mmol/L High 98-108 [facility] Comment on above: Performed By: #### C HM7, IPB, MGO, HFP ####[facility] (DEFAULT)[address] [place] [address] CO2 [Moles/Vol] 19 mmol/L Low 21-31 [facility] Comment on above: Performed By: #### C HM7, IPB, MGO, HFP ####[facility] (DEFAULT)[address] [place] [address] Creatinine [Mass/Vol] 1.22 mg/dL Normal 0.70-1.30 [facility] Comment on above: Performed By: #### C HM7, IPB, MGO, HFP ####[facility] (DEFAULT)[address] [place] [address] GFR/1.73 sq M.predicted among non-blacks MDRD (S/P/Bld) [Vol rate/Area] 71 mL/min/{1.73_m2} Normal >=60 [facility] Comment on above: Result Comment: Repo rted eGFR is based on the CKD-EPI 2020 equation using creatinine, age, and sex. Performed By: #### C HM7, IPB, MGO, HFP ####[facility] (DEFAULT)[address] [place] [address] Glucose [Mass/Vol] 107 mg/dL High 70-99 [facility] Comment on above: Performed By: #### C HM7, IPB, MGO, HFP ####[facility] (DEFAULT)[address] [place] [address] Osmolality [Osmolality] 295 mosm/kg Normal 278-305 [facility] Comment on above: Performed By: #### C HM7, IPB, MGO, HFP ####[facility] (DEFAULT)[address] [place] [address] Potassium [Moles/Vol] 3.9 mmol/L Normal 3.5-5.0 [facility] Comment on above: Performed By: #### C HM7, IPB, MGO, HFP ####[facility] (DEFAULT)[address] [place] [address] Sodium [Moles/Vol] 141 mmol/L Normal 135-145 [facility] Comment on above: Performed By: #### C HM7, IPB, MGO, HFP ####[facility] (DEFAULT)[address] [place] [address] Urea nitrogen [Mass/Vol] 13 mg/dL Normal 7-25 [facility] Comment on above: Performed By: #### C HM7, IPB, MGO, HFP ####[facility] (DEFAULT)[address] [place] [address] Urea nitrogen/Creatinine [Mass ratio] 11 mg/mg Normal [facility] Comment on above: Performed By: #### C HM7, IPB, MGO, HFP ####[facility] (DEFAULT)[address] [place] [address] HEPATIC FUNCTION PANELon Albumin [Mass/Vol] 2.9 g/dL Low 3.5 - 5.0 g/dL [facility] ALP [Catalytic activity/Vol] 111 U/L 32 - 126 U/L [facility] ALT [Catalytic activity/Vol] 18 U/L 10 - 52 U/L [facility] AST [Catalytic activity/Vol] 23 U/L 10 - 39 U/L [facility] Bilirubin [Mass/Vol] 0.8 mg/dL NINF - 1.5 mg/dL [facility] Bilirubin.direct [Mass/Vol] 0.3 mg/dL High NINF - 0.3 mg/dL [facility] Protein [Mass/Vol] 6.0 g/dL Low 6.4 - 8.3 g/dL [facility] Albumin [Mass/Vol] 2.9 g/dL Low 3.5-5.0 [facility] Comment on above: Performed By: #### C HM7, IPB, MGO, HFP ####[facility] (DEFAULT)[address] [place] [address] ALP [Catalytic activity/Vol] 111 U/L Normal 32-126 [facility] Comment on above: Performed By: #### C HM7, IPB, MGO, HFP ####[facility] (DEFAULT)[address] [place] [address] ALT [Catalytic activity/Vol] 18 U/L Normal 10-52 [facility] Comment on above: Performed By: #### C HM7, IPB, MGO, HFP ####[facility] (DEFAULT)[address] [place] [address] AST [Catalytic activity/Vol] 23 U/L Normal 10-39 [facility] Comment on above: Performed By: #### C HM7, IPB, MGO, HFP ####[facility] (DEFAULT)[address] [place] [address] Bilirubin [Mass/Vol] 0.8 mg/dL Normal <1.5 [facility] Comment on above: Performed By: #### C HM7, IPB, MGO, HFP ####[facility] (DEFAULT)[address] [place] [address] Bilirubin.indirect [Mass/Vol] 0.3 mg/dL High <0.3 [facility] Comment on above: Performed By: #### C HM7, IPB, MGO, HFP ####[facility] (DEFAULT)[address] [place] [address] Protein [Mass/Vol] 6.0 g/dL Low 6.4-8.3 [facility] Comment on above: Performed By: #### C HM7, IPB, MGO, HFP ####[facility] (DEFAULT)[address] [place] [address] MAGNESIUMon 09-07-2023 Interpretation and review of laboratory results Normal [facility] Magnesium [Mass/Vol] 1.7 mg/dL 1.6 - 2 .6 mg/dL [facility] Magnesium [Mass/Vol] 1.7 mg/dL Normal 1.6-2.6 [facility] Comment on above: Performed By: #### C HM7, IPB, MGO, HFP ####[facility] (DEFAULT)[address] [place] [address] No Panel Informationon 09-07 Interpretation and review of laboratory results Abnormal [facility] PHOSPHATE, INORGANICon 09-07 Interpretation and review of laboratory results Normal [facility] Phosphate [Mass/Vol] 4.4 mg/dL 2.2 - 4 .6 mg/dL [facility] Phosphorous 4.4 mg/dL Normal 2.2-4.6 [facility] Comment on above: Performed By: #### C HM7, IPB, MGO, HFP ####[facility] (DEFAULT)[address] [place] [address] TACROLIMUS LEVEL, TROUGH (NH E DRUG LEVEL)Ordered By: Elizabeth Maldonado on 09-07-2023 Interpretation and review of laboratory results Normal [facility] Tacrolimus (Bld) [Mass/Vol] 7.8 ng/mL [facility] TACROLIMUS LEVEL, TROUGH (NH E DRUG LEVEL)on 09-07-2023 Tacrolimus, Trough 7.8 ng/mL Normal Bone Susana ow Transplant: 4.0-12.0, Therapeutic: 5.0-15.0 [facility] Comment on above: Order Comment: Pleas e draw at specified interval PRIOR to dose. Do not hold dose to wait for level. Specimens batched twice per day, (M-F) and once per day weekendsMethod performed is a chemiluminescent microparticle immunoasssay on the [employer] i2000.The range is based on experience at [facility] and users should be aware that target concentrations vary widely depending on concomitant therapy, time post-transplant, and desired degree of immunosuppression. Performed By: #### T ACRO ####[facility] (DEFAULT)[address] [place] [address] CBC,PLATELETSon 09-06-2023 Erythrocyte distribution width (RBC) [Ratio] 13.4 % 10.9 - 14.3 % [facility] Hematocrit (Bld) [Volume fraction] 38.4 % Low 39.6 - 48.8 % [facility] Hemoglobin (Bld) [Mass/Vol] 11.9 g/dL Low 13.4 - 16.8 g/dL [facility] Interpretation and review of laboratory results Abnormal [facility] MCH (RBC) [Entitic mass] 26.6 pg 26.1 - 33.3 pg [facility] MCHC (RBC) [Mass/Vol] 31.0 g/dL Low 31.9 - 36.5 g/dL [facility] MCV (RBC) [Entitic vol] 85.9 fL 79.0 - 94.5 fL [facility] Platelet mean volume (Bld) [Entitic vol] 9.7 fL 8.7 - 12.3 fL [facility] Platelets (Bld) [#/Vol] 181 10*3/uL 146 - 337 K/uL [facility] RBC (Bld) [#/Vol] 4.47 10*6/uL [facility] WBC (Bld) [#/Vol] 4.41 10*3/uL 3.73 - 10. 10 K/uL [facility] Hematocrit (Bld) [Volume fraction] 38.4 % Low 39.6-48.8 [facility] Comment on above: Performed By: #### [facility] ####[facility] (DEFAULT)[address] [place] [address] Hemoglobin (Bld) [Mass/Vol] 11.9 g/dL Low 13.4-16.8 [facility] Comment on above: Performed By: #### H EMO ####[facility] (DEFAULT)[address] [place] [address] MCV (RBC) [Entitic vol] 85.9 fL Normal 79.0-94.5 [facility] Comment on above: Performed By: #### H EMO ####[facility] (DEFAULT)[address] [place] [address] Mean Cell Hgb 26.6 pg Normal 26.1-33.3 [facility] Comment on above: Performed By: #### H EMOGC ####[facility] (DEFAULT)[address] [place] [address] Mean Cell Hgb Conc 31.0 g/dL Low 31.9-36.5 [facility] Comment on above: Performed By: #### H EMO ####[facility] (DEFAULT)[address] [place] [address] Platelet mean volume (Bld) [Entitic vol] 9.7 fL Normal 8.7-12.3 [facility] Comment on above: Performed By: #### H EMO ####[facility] (DEFAULT)[address] [place] [address] Platelets (Bld) [#/Vol] 181 10*3/uL Normal 146-337 [facility] Comment on above: Performed By: #### H EMO ####[facility] (DEFAULT)[address] [place] [address] RBC (Bld) [#/Vol] 4.47 10*6/uL Normal 4.38-5.83 [facility] Comment on above: Performed By: #### H EMO ####[facility] (DEFAULT)[address] [place] [address] RBC Distribution 13.4 % Normal 10.9-14.3 [facility] Comment on above: Performed By: #### H EMO ####[facility] (DEFAULT)[address] [place] [address] WBC (Bld) [#/Vol] 4.41 10*3/uL Normal 3.73-10.10 [facility] Comment on above: Performed By: #### H EMO ####[facility] (DEFAULT)[address] [place] [address] CHEM 7 (LYTES,BUN,CREA,GLUC) on 09-06-2023 Anion gap [Moles/Vol] 14 mmol/L 7 - 17 mmol/L [facility] Chloride [Moles/Vol] 109 mmol/L High 98 - 10 8 mmol/L [facility] CO2 [Moles/Vol] 19 mmol/L Low 21 - 31 mmol/L [facility] Creatinine [Mass/Vol] 1.26 mg/dL 0.70 - 1.30 mg/dL [facility] eGFR, CKD-EPI, Male 69 - PINF [facility] Glucose [Mass/Vol] 114 mg/dL High 70 - 99 mg/dL [facility] Osmolality Calc [Osmolality] 291 [facility] Potassium [Moles/Vol] 4.1 mmol/L 3.5 - 5.0 mmol/L [facility] Sodium [Moles/Vol] 138 mmol/L 135 - 145 mmol/L [facility] Urea nitrogen [Mass/Vol] 16 mg/dL 7 - 25 mg/dL [facility] Urea nitrogen/Creatinine [Mass ratio] 13 mg/mg [facility] Anion gap [Moles/Vol] 14 mmol/L Normal 7-17 [facility] Comment on above: Performed By: #### NATHANIEL RAMÍREZ, HFP ####[facility] (DEFAULT)[address] [place] [address] Chloride [Moles/Vol] 109 mmol/L High 98-108 [facility] Comment on above: Performed By: #### NATHANIEL RAMÍREZ, HFP ####[facility] (DEFAULT)[address] [place] [address] CO2 [Moles/Vol] 19 mmol/L Low 21-31 [facility] Comment on above: Performed By: #### NATHANIEL RAMÍREZ, HFP ####[facility] (DEFAULT)[address] [place] [address] Creatinine [Mass/Vol] 1.26 mg/dL Normal 0.70-1.30 [facility] Comment on above: Performed By: #### NATHANIEL RAMÍREZ, HFP ####[facility] (DEFAULT)[address] [place] [address] GFR/1.73 sq M.predicted among non-blacks MDRD (S/P/Bld) [Vol rate/Area] 69 mL/min/{1.73_m2} Normal >=60 [facility] Comment on above: Result Comment: Repo rted eGFR is based on the CKD-EPI 2020 equation using creatinine, age, and sex. Performed By: #### NATHANIEL RAMÍREZ, HFP ####[facility] (DEFAULT)[address] [place] [address] Glucose [Mass/Vol] 114 mg/dL High 70-99 [facility] Comment on above: Performed By: #### NATHANIEL RAMÍREZ, HFP ####[facility] (DEFAULT)[address] [place] [address] Osmolality [Osmolality] 291 mosm/kg Normal 278-305 [facility] Comment on above: Performed By: #### NATHANIEL RAMÍREZ, HFP ####[facility] (DEFAULT)[address] [place] [address] Potassium [Moles/Vol] 4.1 mmol/L Normal 3.5-5.0 [facility] Comment on above: Performed By: #### NATHANIEL RAMÍREZ, HFP ####[facility] (DEFAULT)[address] [place] [address] Sodium [Moles/Vol] 138 mmol/L Normal 135-145 [facility] Comment on above: Performed By: #### NATHANIEL RAMÍREZ, HFP ####[facility] (DEFAULT)[address] [place] [address] Urea nitrogen [Mass/Vol] 16 mg/dL Normal 7-25 [facility] Comment on above: Performed By: #### NATHANIEL RAMÍREZ, HFP ####[facility] (DEFAULT)[address] [place] [address] Urea nitrogen/Creatinine [Mass ratio] 13 mg/mg Normal [facility] Comment on above: Performed By: #### NATHANIEL RAMÍREZ, HFP ####[facility] (DEFAULT)[address] [place] [address] HEPATIC FUNCTION PANELon Albumin [Mass/Vol] 3.0 g/dL Low 3.5 - 5.0 g/dL [facility] ALP [Catalytic activity/Vol] 115 U/L 32 - 126 U/L [facility] ALT [Catalytic activity/Vol] 25 U/L 10 - 52 U/L [facility] AST [Catalytic activity/Vol] 31 U/L 10 - 39 U/L [facility] Bilirubin [Mass/Vol] 1.0 mg/dL NINF - 1.5 mg/dL [facility] Bilirubin.direct [Mass/Vol] 0.3 mg/dL High NINF - 0.3 mg/dL [facility] Protein [Mass/Vol] 6.3 g/dL Low 6.4 - 8.3 g/dL [facility] Albumin [Mass/Vol] 3.0 g/dL Low 3.5-5.0 [facility] Comment on above: Performed By: #### NATHANIEL RAMÍREZ, HFP ####[facility] (DEFAULT)[address] [place] [address] ALP [Catalytic activity/Vol] 115 U/L Normal 32-126 [facility] Comment on above: Performed By: #### NATHANIEL RAMÍREZ, HFP ####[facility] (DEFAULT)[address] [place] [place] [address] ALT [Catalytic activity/Vol] 25 U/L Normal 10-52 [facility] Comment on above: Performed By: #### NATHANIEL RAMÍREZ, HFP ####[facility] (DEFAULT)[address] [place] [address] AST [Catalytic activity/Vol] 31 U/L Normal 10-39 [facility] Comment on above: Performed By: #### NATHANIEL RAMÍREZ, HFP ####[facility] (DEFAULT)[address] [place] [address] Bilirubin [Mass/Vol] 1.0 mg/dL Normal <1.5 [facility] Comment on above: Performed By: #### NATHANIEL RAMÍREZ, HFP ####[facility] (DEFAULT)[address] [place] [address] Bilirubin.indirect [Mass/Vol] 0.3 mg/dL High <0.3 [facility] Comment on above: Performed By: #### NATHANIEL RAMÍREZ, HFP ####[facility] (DEFAULT)[address] [place] [address] Protein [Mass/Vol] 6.3 g/dL Low 6.4-8.3 [facility] Comment on above: Performed By: #### NATHANIEL RAMÍREZ, HFP ####[facility] (DEFAULT)[address] [place] [address] MAGNESIUMon 09-06-2023 Interpretation and review of laboratory results Normal [facility] Magnesium [Mass/Vol] 2.0 mg/dL 1.6 - 2 .6 mg/dL [facility] Magnesium [Mass/Vol] 2.0 mg/dL Normal 1.6-2.6 [facility] Comment on above: Performed By: #### NATHANIEL RAMÍREZ, HFP ####[facility] (DEFAULT)[address] [place] [address] No Panel Informationon 09-06 Interpretation and review of laboratory results Abnormal [facility] TACROLIMUS LEVEL, TROUGH (NH E DRUG LEVEL)on 09-06-2023 Interpretation and review of laboratory results Normal [facility] Tacrolimus (Bld) [Mass/Vol] 6.7 ng/mL [facility] Tacrolimus, Trough 6.7 ng/mL Normal Bone Susana ow Transplant: 4.0-12.0, Therapeutic: 5.0-15.0 [facility] Comment on above: Order Comment: Pleas e draw at specified interval PRIOR to dose. Do not hold dose to wait for level. Specimens batched twice per day, (M-) and once per day weekendsMethod performed is a chemiluminescent microparticle immunoasssay on the [employer] i2000.The range is based on experience at [facility] and users should be aware that target concentrations vary widely depending on concomitant therapy, time post-transplant, and desired degree of immunosuppression. Performed By: #### T ACRO ####[facility] (DEFAULT)[address] [place] [address] CBC,PLATELETSon 09-05-2023 Erythrocyte distribution width (RBC) [Ratio] 13.5 % 10.9 - 14.3 % [facility] Hematocrit (Bld) [Volume fraction] 35.6 % Low 39.6 - 48.8 % [facility] Hemoglobin (Bld) [Mass/Vol] 11.4 g/dL Low 13.4 - 16.8 g/dL [facility] Interpretation and review of laboratory results Abnormal [facility] MCH (RBC) [Entitic mass] 27.5 pg 26.1 - 33.3 pg [facility] MCHC (RBC) [Mass/Vol] 32.0 g/dL 31.9 - 36.5 g/dL [facility] MCV (RBC) [Entitic vol] 86.0 fL 79.0 - 94.5 fL [facility] Platelet mean volume (Bld) [Entitic vol] 10.0 fL 8.7 - 12.3 fL [facility] Platelets (Bld) [#/Vol] 170 10*3/uL 146 - 337 K/uL [facility] RBC (Bld) [#/Vol] 4.14 10*6/uL Low [facility] WBC (Bld) [#/Vol] 4.24 10*3/uL 3.73 - 10. 10 K/uL [facility] Hematocrit (Bld) [Volume fraction] 35.6 % Low 39.6-48.8 [facility] Comment on above: Performed By: #### H EMO ####[facility] (DEFAULT)[address] [place] [address] Hemoglobin (Bld) [Mass/Vol] 11.4 g/dL Low 13.4-16.8 [facility] Comment on above: Performed By: #### H EMOGC ####[facility] (DEFAULT)[address] [place] [address] MCV (RBC) [Entitic vol] 86.0 fL Normal 79.0-94.5 [facility] Comment on above: Performed By: #### H EMOGC ####[facility] (DEFAULT)[address] [place] [place] [address] Mean Cell Hgb 27.5 pg Normal 26.1-33.3 [facility] Comment on above: Performed By: #### H EMOGC ####[facility] (DEFAULT)[address] [place] [address] Mean Cell Hgb Conc 32.0 g/dL Normal 31.9-36.5 [facility] Comment on above: Performed By: #### H EMOGC ####[facility] (DEFAULT)[address] [place] [address] Platelet mean volume (Bld) [Entitic vol] 10.0 fL Normal 8.7-12.3 [facility] Comment on above: Performed By: #### H EMOGC ####[facility] (DEFAULT)[address] [place] [place] [address] Platelets (Bld) [#/Vol] 170 10*3/uL Normal 146-337 [facility] Comment on above: Performed By: #### H EMOGC ####[facility] (DEFAULT)[address] [place] [address] RBC (Bld) [#/Vol] 4.14 10*6/uL Low 4.38-5.83 [facility] Comment on above: Performed By: #### H EMOGC ####[facility] (DEFAULT)[address] [place] [address] RBC Distribution 13.5 % Normal 10.9-14.3 [facility] Comment on above: Performed By: #### H [facility] ####[facility] (DEFAULT)[address] [place] [address] WBC (Bld) [#/Vol] 4.24 10*3/uL Normal 3.73-10.10 [facility] Comment on above: Performed By: #### H [facility] ####[facility] (DEFAULT)[address] [place] [address] CHEM 7 (LYTES,BUN,CREA,GLUC) on 09-05-2023 Anion gap [Moles/Vol] 12 mmol/L 7 - 17 mmol/L [facility] Chloride [Moles/Vol] 107 mmol/L 98 - 10 8 mmol/L [facility] CO2 [Moles/Vol] 20 mmol/L Low 21 - 31 mmol/L [facility] Creatinine [Mass/Vol] 1.43 mg/dL High 0.70 - 1.30 mg/dL [facility] eGFR, CKD-EPI, Male 60 Low - PINF [facility] Glucose [Mass/Vol] 111 mg/dL High 70 - 99 mg/dL [facility] Osmolality Calc [Osmolality] 286 [facility] Potassium [Moles/Vol] 4.2 mmol/L 3.5 - 5.0 mmol/L [facility] Sodium [Moles/Vol] 135 mmol/L 135 - 145 mmol/L [facility] Urea nitrogen [Mass/Vol] 18 mg/dL 7 - 25 mg/dL [facility] Urea nitrogen/Creatinine [Mass ratio] 13 mg/mg [facility] Anion gap [Moles/Vol] 12 mmol/L Normal 7-17 [facility] Comment on above: Performed By: #### H FP, CHM7, MGO ####[facility] (DEFAULT)[address] [place] [address] Chloride [Moles/Vol] 107 mmol/L Normal 98-108 [facility] Comment on above: Performed By: #### H NATHANIEL MONCADA, MGO ####[facility] (DEFAULT)[address] [place] [address] CO2 [Moles/Vol] 20 mmol/L Low 21-31 [facility] Comment on above: Performed By: #### H HELEN MONCADAM7, MGO ####[facility] (DEFAULT)[address] [place] [address] Creatinine [Mass/Vol] 1.43 mg/dL High 0.70-1.30 [facility] Comment on above: Performed By: #### H NATHANIEL MONCADA, MGO ####[facility] (DEFAULT)[address] [place] [address], [place] [address] GFR/1.73 sq M.predicted among non-blacks MDRD (S/P/Bld) [Vol rate/Area] 59 mL/min/{1.73_m2} Low >=60 [facility] Comment on above: Result Comment: Repo rted eGFR is based on the CKD-EPI 2020 equation using creatinine, age, and sex. Performed By: #### H NATHANIEL MONCADA, MGO ####[facility] (DEFAULT)[address] [place] [address] Glucose [Mass/Vol] 111 mg/dL High 70-99 [facility] Comment on above: Performed By: #### H HELEN MONCADAMJessica, MGO ####[facility] (DEFAULT)[address] [place] [address] [place] [address] Osmolality [Osmolality] 286 mosm/kg Normal 278-305 [facility] Comment on above: Performed By: #### H ANTWAN CHM7, MGO ####[facility] (DEFAULT)[address] [facility] [address] Potassium [Moles/Vol] 4.2 mmol/L Normal 3.5-5.0 [facility] Comment on above: Performed By: #### H HELEN MONCADAMJessica, MGO ####[facility] (DEFAULT)[address] [place] [address] Sodium [Moles/Vol] 135 mmol/L Normal 135-145 [facility] Comment on above: Performed By: #### H FP, CHM7, MGO ####[facility] (DEFAULT)[address] [place] [address] Urea nitrogen [Mass/Vol] 18 mg/dL Normal 7-25 [facility] Comment on above: Performed By: #### H FP, CHM7, MGO ####[facility] (DEFAULT)[address] [place] [address] Urea nitrogen/Creatinine [Mass ratio] 13 mg/mg Normal [facility] Comment on above: Performed By: #### H FP, CHM7, MGO ####[facility] (DEFAULT)[address] [place] [address] CONTINUOUS CARDIAC MONITORIN G STRIPon 09-05-2023 [facility] HEPATIC FUNCTION PANELon Albumin [Mass/Vol] 2.8 g/dL Low 3.5 - 5.0 g/dL [facility] ALP [Catalytic activity/Vol] 103 U/L 32 - 126 U/L [facility] ALT [Catalytic activity/Vol] 26 U/L 10 - 52 U/L [facility] AST [Catalytic activity/Vol] 38 U/L 10 - 39 U/L [facility] Bilirubin [Mass/Vol] 0.9 mg/dL NINF - 1.5 mg/dL [facility] Bilirubin.direct [Mass/Vol] 0.1 mg/dL NINF - 0.3 mg/dL [facility] Protein [Mass/Vol] 6.1 g/dL Low 6.4 - 8.3 g/dL [facility] Albumin [Mass/Vol] 2.8 g/dL Low 3.5-5.0 [facility] Comment on above: Performed By: #### H FP, CHM7, MGO ####[facility] (DEFAULT)[address] [place] [address] ALP [Catalytic activity/Vol] 103 U/L Normal 32-126 [facility] Comment on above: Performed By: #### H FP, CHM7, MGO ####[facility] (DEFAULT)[address] [place] [address] ALT [Catalytic activity/Vol] 26 U/L Normal 10-52 [facility] Comment on above: Performed By: #### H FP, CHM7, MGO ####[facility] (DEFAULT)[address] [place] [address] AST [Catalytic activity/Vol] 38 U/L Normal 10-39 [facility] Comment on above: Performed By: #### H FP, CHM7, MGO ####[facility] (DEFAULT)[address] [place] [address] Bilirubin [Mass/Vol] 0.9 mg/dL Normal <1.5 [facility] Comment on above: Performed By: #### H FP, CHM7, MGO ####[facility] (DEFAULT)[address] [place] [address] Bilirubin.indirect [Mass/Vol] 0.1 mg/dL Normal <0.3 [facility] Comment on above: Performed By: #### H FP, CHM7, MGO ####[facility] (DEFAULT)[address] [place] [address] Protein [Mass/Vol] 6.1 g/dL Low 6.4-8.3 [facility] Comment on above: Performed By: #### H FP, CHM7, MGO ####[facility] (DEFAULT)[address] [place] [address] HISTOPLASMA ANTIGEN, FLUIDon 09-05-2023 FH SOURCE BAL RML [facility] Histo FLD interpretation Negative [facility] Histoplasma Antigen, FLUID Not detected ng/mL [facility] HISTOPLASMA CAPSULATUM/BLAST OMYCES SPECIES,PCR FLUIDon 09-05-2023 HISTO/BLASTO RESULT Negative Not Applicable [facility] Specimen source Nom (Unsp spec) BAL RML [facility] IMMUNOPHENOTYPING, TISSUE/FL UIDon 09-05-2023 BKR DX CODE Use Ordering [facility] Flow Interpretation See Comment [facility] Flow Interpreted by: Yossi Perla MD, PhD [facility] MAGNESIUMon 09-05-2023 Interpretation and review of laboratory results Normal [facility] Magnesium [Mass/Vol] 1.7 mg/dL 1.6 - 2 .6 mg/dL [facility] Magnesium [Mass/Vol] 1.7 mg/dL Normal 1.6-2.6 [facility] Comment on above: Performed By: #### H FP, CHM7, MGO ####[facility] (DEFAULT)[address] [place] [address] No Panel Informationon 09-05 Interpretation and review of laboratory results Abnormal [facility] TACROLIMUS LEVEL, TROUGH (NH E DRUG LEVEL)Ordered By: Raymundo Mehta on 09-05-2023 Interpretation and review of laboratory results Normal [facility] Tacrolimus (Bld) [Mass/Vol] 5.3 ng/mL [facility] TACROLIMUS LEVEL, TROUGH (NH E DRUG LEVEL)on 09-05-2023 Tacrolimus, Trough 5.3 ng/mL Normal Bone Susana ow Transplant: 4.0-12.0, Therapeutic: 5.0-15.0 [facility] Comment on above: Order Comment: Pleas e draw at specified interval PRIOR to dose. Do not hold dose to wait for level. Specimens batched twice per day, (M-F) and once per day weekendsMethod performed is a chemiluminescent microparticle immunoasssay on the [employer] i2000.The range is based on experience at [facility] and users should be aware that target concentrations vary widely depending on concomitant therapy, time post-transplant, and desired degree of immunosuppression. Performed By: #### T ACRO ####[facility] (DEFAULT)[address] [place] [address] ARTERIAL BLOOD GAS (FULL GOSS EL)on 09-04-2023 Base excess Calc (Bld) [Moles/Vol] -1.2000 mmol/L -3.0 - 3.0 mmol/L [facility] Calcium.ionized (Bld) [Mass/Vol] 4.79 mg/dL 4.60 - 5.30 mg/dL [facility] Carboxyhemoglobin (Bld) [Mass fraction] 0.7 % NINF - 1.5 % [facility] CO2 (Bld) [Partial pressure] 30 mm[Hg] Low [facility] Glucose [Mass/Vol] 159 mg/dL High 70 - 99 mg/dL [facility] HCO3 (Bld) [Moles/Vol] 22 mmol/L 22 - 28 mmol/L [facility] Hematocrit (Bld) [Volume fraction] 38.0 % Low 40.2 - 50.4 % [facility] Hemoglobin (Bld) [Mass/Vol] 12.6 g/dL Low 13.4 - 16.8 g/dL [facility] Interpretation and review of laboratory results Abnormal [facility] Lactate [Moles/Vol] 2.0 mmol/L High 0.5 - 1. 6 mmol/L [facility] Methemoglobin (Bld) [Mass fraction] 0.0 % NINF - 1.5 % [facility] Oxygen (Bld) [Partial pressure] 62 mm[Hg] Low [facility] Oxygen saturation in Blood 92 % Low 94 - 98 % [facility] Oxyhemoglobin 91 % Low 94 - 98 % [facility] pH (Bld) 7.48 [pH] High 7.35 - 7.45 [facility] Potassium [Moles/Vol] 4.2 mmol/L 3.5 - 5.0 mmol/L [facility] Sodium [Moles/Vol] 130 mmol/L Low 135 - 145 mmol/L [facility] Specimen source Nom (Unsp spec) Arterial [facility] Base Excess -1.2 mmol/L Normal -3.0-3.0 [facility] Comment on above: Performed By: #### Vale UNDERWOOD ####[facility] (DEFAULT)[address] [place] [address] Carboxyhemoglobin 0.7 % Normal <=1.5 [facility] Comment on above: Performed By: #### Vale UNDERWOOD ####[facility] (DEFAULT)[address] [place] [address] Glucose [Mass/Vol] 159 mg/dL High 70-99 [facility] Comment on above: Performed By: #### G ASAASHISH ####[facility] (DEFAULT)[address] [place] [address] HCO3 (Bld) [Moles/Vol] 22 mmol/L Normal 22-28 [facility] Comment on above: Performed By: #### G ASAASHISH ####[facility] (DEFAULT)[address] [place] [address] Hematocrit (Bld) [Volume fraction] 38.0 % Low 40.2-50.4 [facility] Comment on above: Performed By: #### G ASALL ####[facility] (DEFAULT)[address] [place] [address] Hemoglobin (Bld) [Mass/Vol] 12.6 g/dL Low 13.4-16.8 [facility] Comment on above: Performed By: #### G ASALL ####[facility] (DEFAULT)[address] [place] [address] Ionized Calcium, Whole Blood 4.79 mg/dL Normal 4.60-5.30 [facility] Comment on above: Performed By: #### Vale UNDERWOOD ####[facility] (DEFAULT)[address] [place] [address] Lactate, Whole Blood 2.0 mmol/L High 0.5-1.6 [facility] Comment on above: Performed By: #### G YASMINE ####[facility] (DEFAULT)[address] [place] [address] Methemoglobin 0.0 % Normal <=1.5 [facility] Comment on above: Performed By: #### Vale UNDERWOOD ####[facility] (DEFAULT)[address] [place] [address] Oxyhemoglobin 91 % Low 94-98 [facility] Comment on above: Performed By: #### Vale UNDERWOOD ####[facility] (DEFAULT)[address] [place] [address] pCO2 30 mm Hg Low 32-48 [facility] Comment on above: Performed By: #### Vale UNDERWOOD ####[facility] (DEFAULT)[address] [place], [place] [address], [place] [address] pH (Bld) 7.48 [pH] High 7.35-7.45 [facility] Comment on above: Performed By: #### Vale UNDERWOOD ####[facility] (DEFAULT)[address] [place], [place] [address], [place] [address] pO2 62 mm Hg Low 83-108 [facility] Comment on above: Performed By: #### G YASMINE ####[facility] (DEFAULT)[address] [place], [place] [address], [place] [address] Potassium [Moles/Vol] 4.2 mmol/L Normal 3.5-5.0 [facility] Comment on above: Performed By: #### Vale UNDERWOOD ####[facility] (DEFAULT)[address] [place] [address] sO2 92 % Low 94-98 [facility] Comment on above: Performed By: #### G ASALL ####[facility] (DEFAULT)[address] [place] [address] Sodium [Moles/Vol] 130 mmol/L Low 135-145 [facility] Comment on above: Performed By: #### G ASALL ####[facility] (DEFAULT)[address] [place] [address] Specimen type Nom (Spec) Arterial Normal [facility] Comment on above: Performed By: #### G ASALL ####[facility] (DEFAULT)[address] [place] [address] Bacteria identified Respirat ory culture Nom (Unsp spec)on 09-04-2023 Bacteria identified Cx Nom (Unsp spec) NO GROWTH DAY 2 OF 2 [facility] Microscopic observation Other stain Nom (Unsp spec) Cytocentrifuge preparation [facility] Microscopic observation Other stain Nom (Unsp spec) Neutrophils, Rare [facility] Microscopic observation Other stain Nom (Unsp spec) [facility] Blood Cells [facility] Other stain Nom (Unsp spec) No organisms seen [facility] Bacteria identified Respirat ory culture Nom (Unsp spec)Ordered By: Jose Salgado on 09-04-2023 Bacteria identified Cx Nom (Unsp spec) NO GROWTH DAY 2 [facility] 2 [facility] Microscopic [facility] Other stain Nom (Unsp spec) Cytocentrifuge preparation [facility] Microscopic observation Other stain Nom (Unsp spec) Neutrophils, Moderate [facility] Microscopic observation Other stain Nom (Unsp spec) Red Blood Cells Present [facility] Microscopic observation Other stain Nom (Unsp spec) No organisms seen [facility] CBC,PLATELETSon 09-04-2023 Erythrocyte distribution width (RBC) [Ratio] 13.2 % 10.9 - 14.3 % [facility] Hematocrit (Bld) [Volume fraction] 38.7 % Low 39.6 - 48.8 % [facility] Hemoglobin (Bld) [Mass/Vol] 12.3 g/dL Low 13.4 - 16.8 g/dL [facility] Interpretation and review of laboratory results Abnormal [facility] MCH (RBC) [Entitic mass] 27.9 pg 26.1 - 33.3 pg [facility] MCHC (RBC) [Mass/Vol] 31.8 g/dL Low 31.9 - 36.5 g/dL [facility] MCV (RBC) [Entitic vol] 87.8 fL 79.0 - 94.5 fL [facility] Platelet mean volume (Bld) [Entitic vol] 9.8 fL 8.7 - 12.3 fL [facility] Platelets (Bld) [#/Vol] 173 10*3/uL 146 - 337 K/uL [facility] RBC (Bld) [#/Vol] 4.41 10*6/uL [facility] WBC (Bld) [#/Vol] 4.57 10*3/uL 3.73 - 10. 10 K/uL [facility] Hematocrit (Bld) [Volume fraction] 38.7 % Low 39.6-48.8 [facility] Comment on above: Performed By: #### H [facility] ####[facility] (DEFAULT)[address] [place] [address] Hemoglobin (Bld) [Mass/Vol] 12.3 g/dL Low 13.4-16.8 [facility] Comment on above: Performed By: #### H [facility] ####[facility] (DEFAULT)[address] [place] [address] MCV (RBC) [Entitic vol] 87.8 fL Normal 79.0-94.5 [facility] Comment on above: Performed By: #### H EMO ####[facility] (DEFAULT)[address] [place] [address] Mean Cell Hgb 27.9 pg Normal 26.1-33.3 [facility] Comment on above: Performed By: #### H EMOGC ####[facility] (DEFAULT)[address] [place] [address] Mean Cell Hgb Conc 31.8 g/dL Low 31.9-36.5 [facility] Comment on above: Performed By: #### H EMOGC ####[facility] (DEFAULT)[address] [place] [address] Platelet mean volume (Bld) [Entitic vol] 9.8 fL Normal 8.7-12.3 [facility] Comment on above: Performed By: #### H EMOGC ####[facility] (DEFAULT)[address] [place] [address] Platelets (Bld) [#/Vol] 173 10*3/uL Normal 146-337 [facility] Comment on above: Performed By: #### H EMOGC ####[facility] (DEFAULT)[address] [place] [address] RBC (Bld) [#/Vol] 4.41 10*6/uL Normal 4.38-5.83 [facility] Comment on above: Performed By: #### H EMOGC ####[facility] (DEFAULT)[address] [place] [address] RBC Distribution 13.2 % Normal 10.9-14.3 [facility] Comment on above: Performed By: #### H EMOGC ####[facility] (DEFAULT)[address] [place] [address] WBC (Bld) [#/Vol] 4.57 10*3/uL Normal 3.73-10.10 [facility] Comment on above: Performed By: #### H EMOGC ####[facility] (DEFAULT)[address] [place] [address] CHEM 7 (LYTES,BUN,CREA,GLUC) on 09-04-2023 Anion gap [Moles/Vol] 16 mmol/L 7 - 17 mmol/L [facility] Chloride [Moles/Vol] 104 mmol/L 98 - 10 8 mmol/L [facility] CO2 [Moles/Vol] 18 mmol/L Low 21 - 31 mmol/L [facility] Creatinine [Mass/Vol] 1.22 mg/dL 0.70 - 1.30 mg/dL [facility] eGFR, CKD-EPI, Male 71 - PINF [facility] Glucose [Mass/Vol] 124 mg/dL High 70 - 99 mg/dL [facility] Osmolality Calc [Osmolality] 284 [facility] Potassium [Moles/Vol] 3.9 mmol/L 3.5 - 5.0 mmol/L [facility] Sodium [Moles/Vol] 134 mmol/L Low 135 - 145 mmol/L [facility] Urea nitrogen [Mass/Vol] 15 mg/dL 7 - 25 mg/dL [facility] Urea nitrogen/Creatinine [Mass ratio] 12 mg/mg [facility] Anion gap [Moles/Vol] 16 mmol/L Normal 7-17 [facility] Comment on above: Performed By: #### NATHANIEL RAMÍREZ, HFP ####[facility] (DEFAULT)[address] [place] [address] Chloride [Moles/Vol] 104 mmol/L Normal 98-108 [facility] Comment on above: Performed By: #### NATHANIEL RAMÍREZ, HFP ####[facility] (DEFAULT)[address] [place] [address] CO2 [Moles/Vol] 18 mmol/L Low 21-31 [facility] Comment on above: Performed By: #### NATHANIEL RAMÍREZ, HFP ####[facility] (DEFAULT)[address] [place] [address] Creatinine [Mass/Vol] 1.22 mg/dL Normal 0.70-1.30 [facility] Comment on above: Performed By: #### NATHANIEL RAMÍREZ, HFP ####[facility] (DEFAULT)[address] [place] [address] GFR/1.73 sq M.predicted among non-blacks MDRD (S/P/Bld) [Vol rate/Area] 71 mL/min/{1.73_m2} Normal >=60 [facility] Comment on above: Result Comment: Repo rted eGFR is based on the CKD-EPI 2020 equation using creatinine, age, and sex. Performed By: #### NATHANIEL RAMÍREZ, HFP ####[facility] (DEFAULT)[address] [place] [address] Glucose [Mass/Vol] 124 mg/dL High 70-99 [facility] Comment on above: Performed By: #### NATHANIEL RAMÍREZ, HFP ####[facility] (DEFAULT)[address] [place] [address] Osmolality [Osmolality] 284 mosm/kg Normal 278-305 [facility] Comment on above: Performed By: #### NATHANIEL RAMÍREZ, HFP ####[facility] (DEFAULT)[address] [place] [address] Potassium [Moles/Vol] 3.9 mmol/L Normal 3.5-5.0 [facility] Comment on above: Performed By: #### NATHANIEL RAMÍREZ, HFP ####[facility] (DEFAULT)[address] [place] [address] Sodium [Moles/Vol] 134 mmol/L Low 135-145 [facility] Comment on above: Performed By: #### NATHANIEL RAMÍREZ, HFP ####[facility] (DEFAULT)[address] [place] [address] Urea nitrogen [Mass/Vol] 15 mg/dL Normal 7-25 [facility] Comment on above: Performed By: #### NATHANIEL RAMÍREZ, HFP ####[facility] (DEFAULT)[address] [place] [address] Urea nitrogen/Creatinine [Mass ratio] 12 mg/mg Normal [facility] Comment on above: Performed By: #### M NATHANIEL BLOOM, HFP ####[facility] (DEFAULT)[address] [place] [address] CMV PCR,FLUIDS,URINE,EYE ETC on 09-04-2023 Specimen source Nom (Unsp spec) BAL LLL [facility] Specimen source Nom (Unsp spec) BAL RML [facility] HEPATIC FUNCTION PANELon Albumin [Mass/Vol] 3.0 g/dL Low 3.5 - 5.0 g/dL [facility] ALP [Catalytic activity/Vol] 112 U/L 32 - 126 U/L [facility] ALT [Catalytic activity/Vol] 22 U/L 10 - 52 U/L [facility] AST [Catalytic activity/Vol] 30 U/L 10 - 39 U/L [facility] Bilirubin [Mass/Vol] 1.2 mg/dL [facility] - 1.5 mg/dL [facility] Bilirubin.direct [Mass/Vol] 0.4 mg/dL High NINF - 0.3 mg/dL [facility] Protein [Mass/Vol] 6.4 g/dL 6.4 - 8.3 g/dL [facility] Albumin [Mass/Vol] 3.0 g/dL Low 3.5-5.0 [facility] Comment on above: Performed By: #### M NATHANIEL BLOOM, HFP ####[facility] (DEFAULT)[address] [place] [address] ALP [Catalytic activity/Vol] 112 U/L Normal 32-126 [facility] Comment on above: Performed By: #### M NATHANIEL BLOOM, HFP ####[facility] (DEFAULT)[address] [place] [address] ALT [Catalytic activity/Vol] 22 U/L Normal 10-52 [facility] Comment on above: Performed By: #### NATHANIEL RAMÍREZ, HFP ####[facility] (DEFAULT)[address] [place] [address] AST [Catalytic activity/Vol] 30 U/L Normal 10-39 [facility] Comment on above: Performed By: #### NATHANEIL RAMÍREZ, HFP ####[facility] (DEFAULT)[address] [place] [address] Bilirubin [Mass/Vol] 1.2 mg/dL Normal <1.5 [facility] Comment on above: Performed By: #### NATHANIEL RAMÍREZ, HFP ####[facility] (DEFAULT)[address] [place] [address] Bilirubin.indirect [Mass/Vol] 0.4 mg/dL High <0.3 [facility] Comment on above: Performed By: #### NATHANIEL RAMÍREZ, HFP ####[facility] (DEFAULT)[address] [place] [address] Protein [Mass/Vol] 6.4 g/dL Normal 6.4-8.3 [facility] Comment on above: Performed By: #### NATHANIEL RAMÍREZ, HFP ####[facility] (DEFAULT)[address] [place] [address] LEGIONELLA PCRon 09-04-2023 Legionella sp rRNA Probe Ql (Unsp spec) Negative Not Applicable [facility] Specimen source Nom (Unsp spec) BAL RML [facility] Laboratory - Microbiology an d Antimicrobial susceptibilityon 09-04-2023 CMV DNA ESTELITA+probe Ql (Unsp spec) Negative Negative [facility] MAGNESIUMon 09-04-2023 Magnesium [Mass/Vol] 1.4 mg/dL Low 1.6 - 2 .6 mg/dL [facility] Magnesium [Mass/Vol] 1.4 mg/dL Low 1.6-2.6 [facility] Comment on above: Performed By: #### M GO, CHM7, HFP ####[facility] (DEFAULT)[address] [place] [address] No Panel Informationon 09-04 Annotation comment [Interpretation] Narrative DNR [facility] PN Report Status DNR [facility] Pneumocystis jiroveci,PCR result Negative Not Applicable [facility] Interpretation and review of laboratory results Abnormal [facility] PNEUMOCYSTIS JIROVECI,PCRon 09-04-2023 Specimen source Nom (Unsp spec) BAL LLL [facility] Specimen source Nom (Unsp spec) BAL RML [facility] Portable XR Chest Viewson RADIOLOGY RADIOLOGY [facility] Radiology Study observation (narrative) [facility] Portable XR Chest ViewsOrder ed By: Joanie Nugent on 09-04-2023 [facility] Work Phone: TACROLIMUS LEVEL, TROUGH (NH E DRUG LEVEL)on 09-04-2023 Interpretation and review of laboratory results Abnormal [facility] Tacrolimus (Bld) [Mass/Vol] 3.6 ng/mL Low [facility] Tacrolimus, Trough 3.6 ng/mL Low Bone Susana ow Transplant: 4.0-12.0, Therapeutic: 5.0-15.0 [facility] Comment on above: Order Comment: Pleas e draw at specified interval PRIOR to dose. Do not hold dose to wait for level. Specimens batched twice per day, (M-F) and once per day weekendsMethod performed is a chemiluminescent microparticle immunoasssay on the [employer] i2000.The range is based on experience at [facility] and users should be aware that target concentrations vary widely depending on concomitant therapy, time post-transplant, and desired degree of immunosuppression. Performed By: #### T ACRO ####[facility] (DEFAULT)[address] [place] [address] XR CHEST PORTABLEon 09-04-20 23 XR CHEST PORTABLE Normal [facility] ASPERGILLUS ANTIGEN, BALon 1 Galactomannan Ag IA Qn (Unsp spec) <0.500 NINF [facility] Galactomannan Ag IA Qn (Unsp spec) <0.500 NINF [facility] BAL CONSULTOrdered By: Noa Peralta on 09-03-2023 ALVEOLAR MACROPHAGES 32 % [facility] Work Phone: Bal comments Correlation with microbiology stains and cultures is recommended. [facility] Work Phone: Bal Diff Quik Stain Quality Check Acceptable [facility] Work Phone: BKR BAL INTERPRETATION Cellular specimen comprised of alveolar macrophages and small lymphocytes. No definitive microorganisms are observed. Moderate degenerative changes. [facility] Work Phone: BKR DX CODE Use Ordering [facility] Work Phone: Eosinophils Patterson stain Ql (Unsp spec) 0 % [facility] Work Phone: Lymphocytes/100 WBC (Bld) 57 % [facility] Work Phone: Neutrophils/100 WBC Manual cnt (Bronch spec) 11 % [facility] Work Phone: Pathologist review Jame (Unsp spec) [Interp] Leonardo Peralta MD [facility] Work Phone: [facility] Work Phone: BAL CONSULTon 09-03-2023 ALVEOLAR MACROPHAGES 33 % [facility] Bal comments Correlation with microbiology stains and cultures is recommended. Correlation with viral studies is recommended. [facility] Bal Diff Quik Stain Quality Check Acceptable [facility] BKR BAL INTERPRETATION Cellular specimen comprised of alveolar macrophages and small lymphocytes. No definitive microorganisms are observed. Rare degenerating cells with changes suggestive of viral cytopathic effect are noted. Moderate degenerative changes. [facility] BKR DX CODE Use Ordering [facility] Eosinophils Patterson stain Ql (Unsp spec) 0 % [facility] Lymphocytes/100 WBC (Bld) 49 % [facility] Neutrophils/100 WBC Manual cnt (Bronch spec) 18 % [facility] Pathologist review Jame (Unsp spec) [Interp] Leonardo Peralta MD [facility] BRONCHOSCOPYon 09-03-2023 LAB, [facility] CBC,PLATELETSon 09-03-2023 Erythrocyte distribution width (RBC) [Ratio] 13.4 % 10.9 - 14.3 % [facility] Hematocrit (Bld) [Volume fraction] 39.6 % 39.6 - 48.8 % [facility] Hemoglobin (Bld) [Mass/Vol] 12.8 g/dL Low 13.4 - 16.8 g/dL [facility] Interpretation and review of laboratory results Abnormal [facility] MCH (RBC) [Entitic mass] 27.8 pg 26.1 - 33.3 pg [facility] MCHC (RBC) [Mass/Vol] 32.3 g/dL 31.9 - 36.5 g/dL [facility] MCV (RBC) [Entitic vol] 85.9 fL 79.0 - 94.5 fL [facility] Platelet mean volume (Bld) [Entitic vol] 9.4 fL 8.7 - 12.3 fL [facility] Platelets (Bld) [#/Vol] 222 10*3/uL 146 - 337 K/uL [facility] RBC (Bld) [#/Vol] 4.61 10*6/uL [facility] WBC (Bld) [#/Vol] 4.36 10*3/uL 3.73 - 10. 10 K/uL [facility] Hematocrit (Bld) [Volume fraction] 39.6 % Normal 39.6-48.8 [facility] Comment on above: Performed By: #### H EMOGC ####[facility] (DEFAULT)[address] [place] [address] Hemoglobin (Bld) [Mass/Vol] 12.8 g/dL Low 13.4-16.8 [facility] Comment on above: Performed By: #### H EMOGC ####[facility] (DEFAULT)[address] [place] [address] MCV (RBC) [Entitic vol] 85.9 fL Normal 79.0-94.5 [facility] Comment on above: Performed By: #### H EMOGC ####[facility] (DEFAULT)[address] [place] [address] Mean Cell Hgb 27.8 pg Normal 26.1-33.3 [facility] Comment on above: Performed By: #### H EMOGC ####[facility] (DEFAULT)[address] [place] [address] Mean Cell Hgb Conc 32.3 g/dL Normal 31.9-36.5 [facility] Comment on above: Performed By: #### H EMOGC ####[facility] (DEFAULT)[address] [place] [address] Platelet mean volume (Bld) [Entitic vol] 9.4 fL Normal 8.7-12.3 [facility] Comment on above: Performed By: #### H EMOGC ####[facility] (DEFAULT)[address] [place] [address] Platelets (Bld) [#/Vol] 222 10*3/uL Normal 146-337 [facility] Comment on above: Performed By: #### H EMOGC ####[facility] (DEFAULT)[address] [place] [address] RBC (Bld) [#/Vol] 4.61 10*6/uL Normal 4.38-5.83 [facility] Comment on above: Performed By: #### H [facility] ####[facility] (DEFAULT)[address] [place] [address] RBC Distribution 13.4 % Normal 10.9-14.3 [facility] Comment on above: Performed By: #### H [facility] ####[facility] (DEFAULT)[address] [place] [address] WBC (Bld) [#/Vol] 4.36 10*3/uL Normal 3.73-10.10 [facility] Comment on above: Performed By: #### H [facility] ####[facility] (DEFAULT)[address] [place] [address] CHEM 7 (LYTES,BUN,CREA,GLUC) on 09-03-2023 Anion gap [Moles/Vol] 12 mmol/L 7 - 17 mmol/L [facility] Chloride [Moles/Vol] 104 mmol/L 98 - 10 8 mmol/L [facility] CO2 [Moles/Vol] 24 mmol/L 21 - 31 mmol/L [facility] Creatinine [Mass/Vol] 1.20 mg/dL 0.70 - 1.30 mg/dL [facility] eGFR, CKD-EPI, Male 73 - [facility] Glucose [Mass/Vol] 112 mg/dL High 70 - 99 mg/dL [facility] Osmolality Calc [Osmolality] 288 [facility] Potassium [Moles/Vol] 4.1 mmol/L 3.5 - 5.0 mmol/L [facility] Sodium [Moles/Vol] 136 mmol/L 135 - 145 mmol/L [facility] Urea nitrogen [Mass/Vol] 17 mg/dL 7 - 25 mg/dL [facility] Urea nitrogen/Creatinine [Mass ratio] 14 mg/mg [facility] Anion gap [Moles/Vol] 12 mmol/L Normal 7-17 [facility] Comment on above: Performed By: #### M GO, CHM7, HFP ####[facility] (DEFAULT)[address] [place] [address] Chloride [Moles/Vol] 104 mmol/L Normal 98-108 [facility] Comment on above: Performed By: #### NATHANIEL RAMÍREZ, HFP ####[facility] (DEFAULT)[address] [place] [address] CO2 [Moles/Vol] 24 mmol/L Normal 21-31 [facility] Comment on above: Performed By: #### NATHANIEL RAMÍREZ, HFP ####[facility] (DEFAULT)[address] [place] [address] Creatinine [Mass/Vol] 1.20 mg/dL Normal 0.70-1.30 [facility] Comment on above: Performed By: #### NATHANIEL RAMÍREZ, HFP ####[facility] (DEFAULT)[address] [place] [address] GFR/1.73 sq M.predicted among non-blacks MDRD (S/P/Bld) [Vol rate/Area] 73 mL/min/{1.73_m2} Normal >=60 [facility] Comment on above: Result Comment: Repo rted eGFR is based on the CKD-EPI 2020 equation using creatinine, age, and sex. Performed By: #### NATHANIEL RAMÍREZ, HFP ####[facility] (DEFAULT)[address] [place] [address] Glucose [Mass/Vol] 112 mg/dL High 70-99 [facility] Comment on above: Performed By: #### NATHANIEL RAMÍREZ, HFP ####[facility] (DEFAULT)[address] [place] [address] Osmolality [Osmolality] 288 mosm/kg Normal 278-305 [facility] Comment on above: Performed By: #### NATHANIEL RAMÍREZ, HFP ####[facility] (DEFAULT)[address] [place] [address] Potassium [Moles/Vol] 4.1 mmol/L Normal 3.5-5.0 [facility] Comment on above: Performed By: #### NATHANIEL RAMÍREZ, HFP ####[facility] (DEFAULT)[address] [place] [address] Sodium [Moles/Vol] 136 mmol/L Normal 135-145 [facility] Comment on above: Performed By: #### NATHANIEL RAMÍREZ, HFP ####[facility] (DEFAULT)[address] [place] [address] Urea nitrogen [Mass/Vol] 17 mg/dL Normal 7-25 [facility] Comment on above: Performed By: #### NATHANIEL RAMÍREZ, HFP ####[facility] (DEFAULT)[address] [place] [address] Urea nitrogen/Creatinine [Mass ratio] 14 mg/mg Normal [facility] Comment on above: Performed By: #### NATHANIEL RAMÍREZ, HFP ####[facility] (DEFAULT)[address] [place] [address] CYTOLOGY, NON-GYNOrdered By: Sherice Jimenez on 09-03-2023 CYTOLOGIC DIAGNOSIS m1hwoTQxWKUfbZSqQJKxN9vjqbV jISLliJEnB4CppngyTSmmQD4xZH 1whSowbBVrmWYvRDHiExWtd1ano 121dDIry6ljLVTXdaupfPk7f8sp YAWWjG5db0s5vN09XPDkwE8eoXB jOHfzphEtEXafveJmsoQkQoy1XU W9cRryKrsbcEC2vNNqeNP5MExgh 9TsrCswxPjuJVE5PZHaUxvbYDai jSW0lVXmdUpysJTkKV5cx8cnyZV 6gaSeQUW3fLjloHC6dCmtxtzjg3 akgBZ7iCW5UOyjyFR2XKwcXxUuX 9wuJEQztJ9sD08xQ3ncAUNdbPqe IZcjGFWwzLY8PIK5UZBxk5ooPYF wjACfeNRsEgMbCYtvHxu5i6ozCR GsdV46hFZzucS1dGbxGEwufHR6V M23TZlkd9QaZOMxfNajBCQpnM4m YzIzXGxldmVsbmZjbjIzXGxldmV cmkFaVSgwxzKld2NxqcNhkTM0XF nqobZrfWU3gZyrIHHkP3H0C791U GyiiuKtxeRxDaMwyyz6SBCsrRwt bGlzdGxldmVsXGxldmVsbmZjMjN pdDV7ANouSkFjQzMdpGT1HYksKn HmiHS4WFotwWXxiKO9UKqodYQ6N Ad4PDc4NIubFNdkJko2gQhvzXL9 JTiwtZ8yJZYpD14gHqA5p3awkQK 9yXI5QPuxoVX5IZwbHxOnN9ykVQ CqxR1hI86iM2koMUTcyZtiCJegP MWdbNN2GXB0XSFrz6byHHNirZNp yLQjQkAqUGhlEze6l0eaRWAjmX2 7dDAyfwZ6lMfoTW56JFeah8WfPY AlaNiiGBTikX0rAsXeXIavdmEto mZjbjIzXGxldmVsamMwXGxldmVs h8KlnxJdxGM9QFegozJlbFQ4qZm qPWSiY6L9X276PZmkmeLempAaTj Yxugm5ULVjlLbdzKoamIyrlcKeL CtpptFbzhAfLqUddNX3HQzlVdOw BtWcyCO2QZclDwIwmNS7HJedkWL grHL7ULnhaQA8IRv4WAz5KFsbKK jbNxg5iTmohJP4XJahpH1aBWVaE 05bQeY4n2foqBJ7nAC1APpmcCI6 EHozNaHkL4abIEUtpM0gQ30hT9p xRXDouQpvFIpiHZNacRW3EZW2EA Gcu3oyUTVixXIjfVXmDmHdVLajA az4g1rjTFWnuO64pRNtbwD9vRrm QT91TRdsd3FxXZCygLzpELKnoT6 mYzIzXGxldmVsbmZjbjIzXGxldm MmiaBwRSrsyxQyk9KqlwBpfEG4B AnwwvXiyGR9oCscOIQgN1Y8R626 DJrrylKmtiGxAoAstox1RPIwuTy cbGlzdGxldmVsXGxldmVsbmZjMj FphPY7LNqmAsRwXaEfmGS0LXdfV oGooHU1ZWwgiSCwmJE7XFtwsKO9 TYj9SFe5BUkmNXjaHmu9qRcjySF 8SNvniG4pVAFhY92fUcX3kL64EX uxuYarpB92RVBfgDXdqIEdqTG5E FfpiQwhnR79IJJeaNOeCBgnu6Eu RJPhNtS6YUT7NIEtkWbnzH69GZH okCUhH407xqGbHTqsBU88FCLyhK WssrZkFnPzSDLuyQTjsWH9YUIlU G9yjckcEQtyTKwcENLdrjN3WELo zNHiA0GtPMViGT0elwyfMQP0UMa fKHTaLTR0EwJqXISwq0Dnvwy3Nw FcnSc1w2tkYGKjHURypHrjy4vdW HU1QDIuaYCkD8kvmR9pNHEgMS0q icfkj3rxWXumDIfvQAQfpXE7tfI 7QQPfdNGqE5ZncR5vPJAhKBAkdk UidOwkpX0bEqhmooFxMKTtZQUDB jWHUh0WG3qRAKtXHN6RFQUiPFPR CMsPLGAAQAWUUHsHL0SAGRqZOmB gMYAhLMBtF5bBV9wKB1boZkmhOe ZqKIioVTTlVnCtT1FjCIIgtwiuD RPxUWJRTJ3BKORDNSDHRr9LRAT1 WOXnlpykaQL2ZMxkigMreIp4dYP rwDpmaB6lWsuxkeDqWRBhCOKFsj DLIWhaV55xzfTlP2SzmYJpVPXuQ XvuSN92qZGhRMLbmAMhKPm1bX1l GKmpdTmlwaWZoVKezQ9wwagxJOm jZjBccGFyXGxpMFxsczBccGFyfQ == [facility] Work Phone: Case Report [facility] Work Phone: Clinical History t5qzxGKvPSMvtKNrZMYq O5ztqkY yCPGadQRoP7XxovbkDAyiYZ2oKW 9joPlolEHeaXMcLVTlToVbq7nks 430aAVcs4qfKLRBcliroXq9qExr C06xn6A0RzyiX1dgGWFnDDuuBJT pSAbqsINuPBq9NKNhxLEmpsNpPl TpTKQzaHOpmMB4IDJqTU0nfdfrR WhlVCyyDFEyhzX9LFUqcLKuK9Cd CBHdYS4mvvofYEZ7QUyqWLHbFBU 3UbHfSMQcq9Wneca3FxZwtYz0c2 opSPTtXOAijHywc8onWDE1EGKua CQuG3zpxE9vKVFmPU5lfzkhx5lq VEpmPZuiZKCcdDW7bnD9HXIyzZM nQ2JllB3yQNOfEUPrntEzqKwzlZ 5cZnMyMFxjZjEgUmVuYWwgdHJhb aUizCDnuQ4nQDQufc0= [facility] Work Phone: For Immediate Release to Patient's MyChart? Yes Yes [facility] Work Phone: Gross Description k4rhjJRaAWAirDUnUDCg O5voprS lNPYfjQLyH6XlvyfvGKyhSI6yXF 5hhMkqfARkhNKzUPKyCxEps2duu 789hDOkd5tnTTVIykiqsBx7bJkq C13pu2B0SvupR49tlYKdVAY6SBX fCCXdcVZxBSMfXZR5DKZqkPZoC2 cqVNRsTO6oavalMCbzTLjjHOHcm KY9YPIfoPUvN2MnKMHsWCewPHGb ovr7NbKmCb4dcARhsHpnSPqjPED kXHBsYWluXGZzMjAgTExMIEJBTF fhZYNlSZEdmRRkMVj7YSZaeN2ej JEdhmKgnDZrwE3zmKklLUvzVPGs SFNMJYJpgGglBQTXPMWcm6GnlK3 ccGFyXHBhcmRccGFyXHBhcn0= [facility] Work Phone: [facility] Work Phone: HEPATIC FUNCTION PANELon Albumin [Mass/Vol] 3.2 g/dL Low 3.5 - 5.0 g/dL [facility] ALP [Catalytic activity/Vol] 118 U/L 32 - 126 U/L [facility] ALT [Catalytic activity/Vol] 25 U/L 10 - 52 U/L [facility] AST [Catalytic activity/Vol] 32 U/L 10 - 39 U/L [facility] Bilirubin [Mass/Vol] 1.0 mg/dL NINF - 1.5 mg/dL [facility] Bilirubin.direct [Mass/Vol] 0.3 mg/dL High NINF - 0.3 mg/dL [facility] Protein [Mass/Vol] 6.5 g/dL 6.4 - 8.3 g/dL [facility] Albumin [Mass/Vol] 3.2 g/dL Low 3.5-5.0 [facility] Comment on above: Performed By: #### Rod BLOOM CHM7, HFP ####[facility] (DEFAULT)[address] [place] [address] ALP [Catalytic activity/Vol] 118 U/L Normal 32-126 [facility] Comment on above: Performed By: #### NATHANIEL RAMÍREZ, HFP ####[facility] (DEFAULT)[address] [place] [address] ALT [Catalytic activity/Vol] 25 U/L Normal 10-52 [facility] Comment on above: Performed By: #### TJ RAMÍREZ7, HFP ####[facility] (DEFAULT)[address] [place] [address] AST [Catalytic activity/Vol] 32 U/L Normal 10-39 [facility] Comment on above: Performed By: #### Rod BLOOM CHM7, HFP ####[facility] (DEFAULT)[address] [place] [address] Bilirubin [Mass/Vol] 1.0 mg/dL Normal <1.5 [facility] Comment on above: Performed By: #### Rod BLOOM CHM7, HFP ####[facility] (DEFAULT)[address] [place] [address] Bilirubin.indirect [Mass/Vol] 0.3 mg/dL High <0.3 [facility] Comment on above: Performed By: #### Rod BLOOM CHM7, HFP ####[facility] (DEFAULT)[address] [place] [address] Protein [Mass/Vol] 6.5 g/dL Normal 6.4-8.3 [facility] Comment on above: Performed By: #### M , CHM7, [facility] ####[facility] (DEFAULT)[address] [place] [address] HISTOPLASMA AND BLASTOMYCES ANTIGEN, ENZYME IMMUNOASSAY, SERMon 09-03-2023 Histoplasma/Blastomy antonia Ag Result Detected Critically abnormal Not Detected [facility] Histoplasma/Blastomy antonia Ag Value 5.3 ng/mL [facility] Interpretation and review of laboratory results Abnormal [facility] IMMUNOPHENOTYPING, TISSUE/FL UIDon 09-03-2023 BKR DX CODE Use Ordering Normal [facility] Comment on above: Order Comment: Dilan gregory lab add on to specimen collected yesterdayIMMUNOPHENOTYPING DIAGNOSISPATIENT NAME: GEORGE SLATER: 1970MRN: [id number]#: [id number] BY: Yossi Perla M.D,, Ph.D. [id number] TYPE: Bronchial Alveolar LavageLABORATORY INTERPRETATION:There is no [...] characteristicsdetermined The Flow Cytometry Laboratory at [facility]. It has notbeen cleared or approved by the FDA. This laboratory is certifiedunder the Clinical Laboratory Improvement Amendments (CLIA)as qualified to perform high complexity clinical laboratorytesting. This test is used for clinical purposes. It should notbe regarded as investigational or for research.The [facility] Flow [facility] lower limitof CLL MRD detection is 0.1% of the gated lymphocytes. Performed By: #### G IPP ####[facility] (DEFAULT)[address] [place] [address] Flow Interpretation See Comment Normal [facility] Comment on above: Order Comment: Pleas e lab add on to specimen collected yesterdayIMMUNOPHENOTYPING DIAGNOSISPATIENT NAME: GEORGE SLATER: 1970MRN: [id number]#: [id number] BY: Yossi Perla M.D,, Ph.D. [id number] TYPE: Bronchial Alveolar LavageLABORATORY INTERPRETATION:There is no [...] characteristicsdetermined The Flow Cytometry Laboratory at [facility]. It has notbeen cleared or approved by the FDA. This laboratory is certifiedunder the Clinical Laboratory Improvement Amendments (CLIA)as qualified to perform high complexity clinical laboratorytesting. This test is used for clinical purposes. It should notbe regarded as investigational or for research.The [facility] Flow Cytometry Laboratory lower limitof CLL MRD detection is 0.1% of the gated lymphocytes. Performed By: #### G IPP ####[facility] (DEFAULT)[address] [place] [address] Flow Interpreted by: Yossi Perla MD, PhD [facility] Comment on above: Order Comment: Pleas e lab add on to specimen collected yesterdayIMMUNOPHENOTYPING DIAGNOSISPATIENT NAME: GEORGE SLATER: 1970MRN: [id number]#: [id number] BY: Yossi Perla M.D,, Ph.D. [id number] TYPE: Bronchial Alveolar LavageLABORATORY INTERPRETATION:There is no [...] characteristicsdetermined The Flow Cytometry Laboratory at [facility]. It has notbeen cleared or approved by the FDA. This laboratory is certifiedunder the Clinical Laboratory Improvement Amendments (CLIA)as qualified to perform high complexity clinical laboratorytesting. This test is used for clinical purposes. It should notbe regarded as investigational or for research.The [facility] Flow Cytometry Laboratory lower limitof CLL MRD detection is 0.1% of the gated lymphocytes. Performed By: #### G IPP ####[facility] (DEFAULT)[address] [place] [address] MAGNESIUMon 09-03-2023 Interpretation and review of laboratory results Normal [facility] Magnesium [Mass/Vol] 1.6 mg/dL 1.6 - 2 .6 mg/dL [facility] Magnesium [Mass/Vol] 1.6 mg/dL Normal 1.6-2.6 [facility] Comment on above: Performed By: #### M GO, CHM7, [facility] ####[facility] (DEFAULT)[address] [place], [place] [address] No Panel Informationon 09-03 Interpretation and review of laboratory results Abnormal [facility] PARVOVIRUS (B19) DNA, PCR, B LOODon 09-03-2023 PARVOVIRUS B19 BY RAPID PCR Not detected Not Detected [facility] [place] SPEC SOURCE Whole Blood [facility] Portable XR Chest Viewson RADIOLOGY RADIOLOGY [facility] Radiology Study observation (narrative) [facility] Portable XR Chest ViewsOrder ed By: [place] on 09-03-2023 [facility] Work Phone: XR CHEST PORTABLEon 09-03-20 23 XR CHEST PORTABLE Normal [facility] ACID FAST CULTUREon 09-02-20 23 Bacteria identified Cx Nom (Unsp spec) NO GROWTH DAY 42 OF 42 Normal [facility] Comment on above: Performed By: #### A FB ####[facility] (DEFAULT)[address] [place] [address] Fluorochrome Stain No acid Fast Bacillus Seen Normal [facility] Comment on above: Performed By: #### A FB ####[facility] (DEFAULT)[address] [place] [address] Bacteria identified Cx Nom (Unsp spec) NO GROWTH DAY 42 OF 42 Normal [facility] Comment on above: Order Comment: BAL A FB culture. Clinical suspicion for non-tuberculous mycobacteria Performed By: #### A FB ####[facility] (DEFAULT)[address] [place] [address] Fluorochrome Stain No acid Fast Bacillus Seen Normal [facility] Comment on above: Order Comment: BAL A FB culture. Clinical suspicion for non-tuberculous mycobacteria Performed By: #### A FB ####[facility] (DEFAULT)[address] [place] [address] ASPERGILLUS (GALACTOMANNAN), ANTIGENon 09-02-2023 Galactomannan Ag IA Qn <0.500 NINF [facility] ASPERGILLUS ANTIGEN, BALon 1 Aspergillus Galactomannan Antigen, BAL <0.500 Normal <0.5 [facility] Comment on above: Result Comment: ---- ADDITIONAL INFORMATION This is a qualitative test and the resulted index value isnot indicative of disease severity. Serial testing isrecommended for patients at high risk for invasiveaspergillosis.This assay was performed using the FDA-cleared [employer] Aspergillus Galactomannan EIA.Test Performed by:[address] Director: Rosendo Bose M.D. Ph.D.; CLIA# [id number] Performed By: #### X ASGFL ####[facility] (DEFAULT)[address] [place] [id number] Aspergillus Galactomannan Antigen, BAL <0.500 Normal <0.5 [facility] Comment on above: Order Comment: BAL a spirgillus antigen Result Comment: ---- ADDITIONAL INFORMATION This is a qualitative test and the resulted index value isnot indicative of disease severity. Serial testing isrecommended for patients at high risk for invasiveaspergillosis.This assay was performed using the FDA-cleared Bio-RadPlat[employer] Aspergillus Galactomannan EIA.Test Performed by:[address] Director: Rosendo Bose M.D. Ph.D.; CLIA# [id number] Performed By: #### X ASGFL ####[facility] (DEFAULT)[address] [address] ATYPICAL BACTERIAL PNEUMONIA ,PCROrdered By: Shari Contreras on 09-02-2023 B. parapertussis DNA ESTELITA+probe Ql (Unsp spec) Not detected Not Detected [facility] B. pertussis DNA ESTELITA+probe Ql (Unsp spec) Not detected Not Detected [facility] C. pneumoniae DNA ESTELITA+probe Ql (Unsp spec) Not detected Not Detected [facility] Interpretation and review of laboratory results Normal [facility] M. pneumoniae DNA ESTELITA+probe Ql (Unsp spec) Not detected Not Detected [facility] ATYPICAL BACTERIAL PNEUMONIA ,PCRon 09-02-2023 Bordetella Parapertussis Not detected Normal Not Detected [facility] Comment on above: Order Comment: Viral [...] by [facility]. It has not been cleared or approved by the FDA. The laboratory is required under CLIA as qualified to perform high-complexity testing. This test is used for clinical purposes. It should not be regarded as investigational or for research. Performed By: #### A TYPNE ####[facility] (DEFAULT)[address] [place] [address] Bordetella Pertussis Not detected Normal Not Detected [facility] Comment on above: Order Comment: Viral [...] by [facility]. It has not been cleared or approved by the FDA. The laboratory is required under CLIA as qualified to perform high-complexity testing. This test is used for clinical purposes. It should not be regarded as investigational or for research. Performed By: #### A TYPNE ####[facility] (DEFAULT)[address] [address] Chlamydia Pneumoniae Not detected Normal Not Detected [facility] Comment on above: Order Comment: Viral [...] by [facility]. It has not been cleared or approved by the FDA. The laboratory is required under CLIA as qualified to perform high-complexity testing. This test is used for clinical purposes. It should not be regarded as investigational or for research. Performed By: #### A TYPNE ####[facility] (DEFAULT)[address] [address] Mycoplasma Pneumoniae Not detected Normal Not Detected [facility] Comment on above: Order Comment: Viral [...] by [facility]. It has not been cleared or approved by the FDA. The laboratory is required under CLIA as qualified to perform high-complexity testing. This test is used for clinical purposes. It should not be regarded as investigational or for research. Performed By: #### A TYPNE ####[facility] (DEFAULT)[address] [address] BAL CONSULTon 09-02-2023 ALVEOLAR MACROPHAGES 33 % Normal [facility] Comment on above: Order Comment: BAL c onsultIf > 15% lymphocytes - please send for flow. Performed By: #### B ALC ####[facility] (DEFAULT)[address] [place] [address] Bal comments Correlation with microbiology stains and cultures is recommended. Correlation with viral studies is recommended. Normal [facility] Comment on above: Order Comment: BAL c onsultIf > 15% lymphocytes - please send for flow. Performed By: #### B ALC ####[facility] (DEFAULT)[address] [place] [address] Bal Diff Quik Stain Quality Check Acceptable Normal [facility] Comment on above: Order Comment: BAL c onsultIf > 15% lymphocytes - please send for flow. Performed By: #### B ALC ####[facility] (DEFAULT)[address] [place] [address] Bal Reviewed By: Leonardo Peralta MD [facility] Comment on above: Order Comment: BAL c onsultIf > 15% lymphocytes - please send for flow. Performed By: #### B ALC ####[facility] (DEFAULT)[address] [place] [address] BKR BAL INTERPRETATION Cellular specimen comprised of alveolar macrophages and small lymphocytes. No definitive microorganisms are observed. Rare degenerating cells with changes suggestive of viral cytopathic effect are noted. Moderate degenerative changes. Normal [facility] Comment on above: Order Comment: BAL c onsultIf > 15% lymphocytes - please send for flow. Performed By: #### B ALC ####[facility] (DEFAULT)[address] [place] [address] BKR DX CODE Use Ordering Normal [facility] Comment on above: Order Comment: BAL c onsultIf > 15% lymphocytes - please send for flow. Performed By: #### B ALC ####[facility] (DEFAULT)[address] [place] [address] Eosinophils/100 WBC (Bld) 0 % Normal [facility] Comment on above: Order Comment: BAL c onsultIf > 15% lymphocytes - please send for flow. Performed By: #### B ALC ####[facility] (DEFAULT)[address] [place] [address] Lymphocytes/100 WBC (Bld) 49 % Normal [facility] Comment on above: Order Comment: BAL c onsultIf > 15% lymphocytes - please send for flow. Performed By: #### B ALC ####[facility] (DEFAULT)[address] [place] [address] Neutrophils/100 WBC (Bld) 18 % Normal [facility] Comment on above: Order Comment: BAL c onsultIf > 15% lymphocytes - please send for flow. Performed By: #### B ALC ####[facility] (DEFAULT)[address] [place] [address] ALVEOLAR MACROPHAGES 32 % Normal [facility] Comment on above: Order Comment: BAL c onsult for cell differential and pathologist review. Please do flow cytometry if > 12% lymphocytes Performed By: #### B ALC ####[facility] (DEFAULT)[address] [place] [address], [place] [address] Bal comments Correlation with microbiology stains and cultures is recommended. Normal [facility] Comment on above: Order Comment: BAL c onsult for cell differential and pathologist review. Please do flow cytometry if > 12% lymphocytes Performed By: #### B ALC ####[facility] (DEFAULT)[address] [place] [address], [place] [address] Bal Diff Quik Stain Quality Check Acceptable Normal [facility] Comment on above: Order Comment: BAL c onsult for cell differential and pathologist review. Please do flow cytometry if > 12% lymphocytes Performed By: #### B ALC ####[facility] (DEFAULT)[address] [place] [address] Bal Reviewed By: Leonardo Peralta MD [facility] Comment on above: Order Comment: BAL c onsult for cell differential and pathologist review. Please do flow cytometry if > 12% lymphocytes Performed By: #### B ALC ####[facility] (DEFAULT)[address] [place] [address] BKR BAL INTERPRETATION Cellular specimen comprised of alveolar macrophages and small lymphocytes. No definitive microorganisms are observed. Moderate degenerative changes. Normal [facility] Comment on above: Order Comment: BAL c onsult for cell differential and pathologist review. Please do flow cytometry if > 12% lymphocytes Performed By: #### B ALC ####[facility] (DEFAULT)[address] [place] [address] BKR DX CODE Use Ordering Normal [facility] Comment on above: Order Comment: BAL c onsult for cell differential and pathologist review. Please do flow cytometry if > 12% lymphocytes Performed By: #### B ALC ####[facility] (DEFAULT)[address] [place] [address] Eosinophils/100 WBC (Bld) 0 % Normal [facility] Comment on above: Order Comment: BAL c onsult for cell differential and pathologist review. Please do flow cytometry if > 12% lymphocytes Performed By: #### B ALC ####[facility] (DEFAULT)[address] [place] [address] Lymphocytes/100 WBC (Bld) 57 % Normal [facility] Comment on above: Order Comment: BAL c onsult for cell differential and pathologist review. Please do flow cytometry if > 12% lymphocytes Performed By: #### B ALC ####[facility] (DEFAULT)[address] [place] [address] Neutrophils/100 WBC (Bld) 11 % Normal [facility] Comment on above: Order Comment: BAL c onsult for cell differential and pathologist review. Please do flow cytometry if > 12% lymphocytes Performed By: #### B ALC ####[facility] (DEFAULT)[address] [place] [address] BRONCHOSCOPYon 09-02-2023 Radiology Study observation (narrative) [facility] Bacteria identified Cx Nom ( Bld)on 09-02-2023 Bacteria identified Cx Nom (Unsp spec) NO GROWTH DAY 5 OF 5 [facility] CBC,PLATELETSon 09-02-2023 Erythrocyte distribution width (RBC) [Ratio] 13.2 % 10.9 - 14.3 % [facility] Hematocrit (Bld) [Volume fraction] 39.9 % 39.6 - 48.8 % [facility] Hemoglobin (Bld) [Mass/Vol] 12.9 g/dL Low 13.4 - 16.8 g/dL [facility] Interpretation and review of laboratory results Abnormal [facility] MCH (RBC) [Entitic mass] 27.9 pg 26.1 - 33.3 pg [facility] MCHC (RBC) [Mass/Vol] 32.3 g/dL 31.9 - 36.5 g/dL [facility] MCV (RBC) [Entitic vol] 86.4 fL 79.0 - 94.5 fL [facility] Platelet mean volume (Bld) [Entitic vol] 9.5 fL 8.7 - 12.3 fL [facility] Platelets (Bld) [#/Vol] 210 10*3/uL 146 - 337 K/uL [facility] RBC (Bld) [#/Vol] 4.62 10*6/uL [facility] WBC (Bld) [#/Vol] 4.12 10*3/uL 3.73 - 10. 10 K/uL [facility] Hematocrit (Bld) [Volume fraction] 39.9 % Normal 39.6-48.8 [facility] Comment on above: Performed By: #### H [facility] ####[facility] (DEFAULT)[address] [place] [address] Hemoglobin (Bld) [Mass/Vol] 12.9 g/dL Low 13.4-16.8 [facility] Comment on above: Performed By: #### H [facility] ####[facility] (DEFAULT)[address] [place] [address] MCV (RBC) [Entitic vol] 86.4 fL Normal 79.0-94.5 [facility] Comment on above: Performed By: #### H [facility] ####[facility] (DEFAULT)[address] [place] [address] Mean Cell Hgb 27.9 pg Normal 26.1-33.3 [facility] Comment on above: Performed By: #### H EMOGC ####[facility] (DEFAULT)[address] [place] [address] Mean Cell Hgb Conc 32.3 g/dL Normal 31.9-36.5 [facility] Comment on above: Performed By: #### H EMOGC ####[facility] (DEFAULT)[address] [place] [address] Platelet mean volume (Bld) [Entitic vol] 9.5 fL Normal 8.7-12.3 [facility] Comment on above: Performed By: #### H EMOGC ####[facility] (DEFAULT)[address] [place] [address] Platelets (Bld) [#/Vol] 210 10*3/uL Normal 146-337 [facility] Comment on above: Performed By: #### H EMOGC ####[facility] (DEFAULT)[address] [place] [address] RBC (Bld) [#/Vol] 4.62 10*6/uL Normal 4.38-5.83 [facility] Comment on above: Performed By: #### H EMOGC ####[facility] (DEFAULT)[address] [place] [address] RBC Distribution 13.2 % Normal 10.9-14.3 [facility] Comment on above: Performed By: #### H EMOGC ####[facility] (DEFAULT)[address] [place] [address] WBC (Bld) [#/Vol] 4.12 10*3/uL Normal 3.73-10.10 [facility] Comment on above: Performed By: #### H EMOGC ####[facility] (DEFAULT)[address] [place] [address] CHEM 7 (LYTES,BUN,CREA,GLUC) on 09-02-2023 Anion gap [Moles/Vol] 13 mmol/L 7 - 17 mmol/L [facility] Chloride [Moles/Vol] 105 mmol/L 98 - 10 8 mmol/L [facility] CO2 [Moles/Vol] 22 mmol/L 21 - 31 mmol/L [facility] Creatinine [Mass/Vol] 1.25 mg/dL 0.70 - 1.30 mg/dL [facility] eGFR, CKD-EPI, Male 69 - [facility] Glucose [Mass/Vol] 105 mg/dL High 70 - 99 mg/dL [facility] Osmolality Calc [Osmolality] 287 [facility] Potassium [Moles/Vol] 4.3 mmol/L 3.5 - 5.0 mmol/L [facility] Sodium [Moles/Vol] 136 mmol/L 135 - 145 mmol/L [facility] Urea nitrogen [Mass/Vol] 16 mg/dL 7 - 25 mg/dL [facility] Urea nitrogen/Creatinine [Mass ratio] 13 mg/mg [facility] Anion gap [Moles/Vol] 13 mmol/L Normal 7-17 [facility] Comment on above: Performed By: #### C HM7, HFP, MGO ####[facility] (DEFAULT)[address] [place] [address] Chloride [Moles/Vol] 105 mmol/L Normal 98-108 [facility] Comment on above: Performed By: #### C HM7, HFP, MGO ####[facility] (DEFAULT)[address] [place] [address] CO2 [Moles/Vol] 22 mmol/L Normal 21-31 [facility] Comment on above: Performed By: #### C HM7, HFP, MGO ####[facility] (DEFAULT)[address] [place] [address] Creatinine [Mass/Vol] 1.25 mg/dL Normal 0.70-1.30 [facility] Comment on above: Performed By: #### C TAVO MEDLEY, MGO ####[facility] (DEFAULT)[address] [place] [address] GFR/1.73 sq M.predicted among non-blacks MDRD (S/P/Bld) [Vol rate/Area] 69 mL/min/{1.73_m2} Normal >=60 [facility] Comment on above: Result Comment: Repo rted eGFR is based on the CKD-EPI 2020 equation using creatinine, age, and sex. Performed By: #### C TAVO MEDLEY, MGO ####[facility] (DEFAULT)[address] [place] [address] Glucose [Mass/Vol] 105 mg/dL High 70-99 [facility] Comment on above: Performed By: #### Chinedu HMJessica, HFP, MGO ####[facility] (DEFAULT)[address] [place] [address] Osmolality [Osmolality] 287 mosm/kg Normal 278-305 [facility] Comment on above: Performed By: #### Chinedu HMJessica, HFP, MGO ####[facility] (DEFAULT)[address] [place] [address] Potassium [Moles/Vol] 4.3 mmol/L Normal 3.5-5.0 [facility] Comment on above: Performed By: #### Chinedu HM7, HFP, MGO ####[facility] (DEFAULT)[address] [place] [address] Sodium [Moles/Vol] 136 mmol/L Normal 135-145 [facility] Comment on above: Performed By: #### Chinedu HM7, HFP, MGO ####[facility] (DEFAULT)[address] [place] [address] Urea nitrogen [Mass/Vol] 16 mg/dL Normal 7-25 [facility] Comment on above: Performed By: #### C HM7, HFP, MGO ####[facility] (DEFAULT)[address] [place] [address] Urea nitrogen/Creatinine [Mass ratio] 13 mg/mg Normal [facility] Comment on above: Performed By: #### C HM7, HFP, MGO ####[facility] (DEFAULT)[address] [place] [address] CMV PCR,FLUIDS,URINE,EYE ETC on 09-02-2023 CMV by PCR Result Negative Normal Negative [facility] Comment on above: Result Comment: ---- ADDITIONAL INFORMATION This test was developed and its performance characteristicsdetermined by [facility] in a manner consistent with [employer]. This test has not been cleared or approved bythe U.S. Food and Drug Administration.Test Performed by:[address] Director: Rosendo Bose M.D. Ph.D.; CLIA# [id number] Performed By: #### Y CMV ####[facility] (DEFAULT)[address] [place] [address] CMV BY PCR SOURCE BAL RML Normal [facility] Comment on above: Performed By: #### Y CMV ####[facility] (DEFAULT)[address] [place] [address] CMV by PCR Result Negative Normal Negative [facility] Comment on above: Result Comment: ---- ADDITIONAL INFORMATION This test was developed and its performance characteristicsdetermined by [facility] in a manner consistent with CLIArequirements. This test has not been cleared or approved bythe U.S. Food and Drug Administration.Test Performed by:[place] [id number] Director: Rosendo Bose M.D. Ph.D.; CLIA# [id number] Performed By: #### Y CMV ####[facility] (DEFAULT)[address] [place] [address] CMV BY PCR SOURCE BAL LLL Normal [facility] Comment on above: Performed By: #### Y CMV ####[facility] (DEFAULT)[address] [place] [address] CYTOLOGY, NON-GYNon 09-02-20 23 CYTOLOGIC DIAGNOSIS Normal [facility] Comment on above: Result Comment: A. B RONCHOALVEOLAR LAVAGE, LEFT LOWER LOBE (CYTOLOGY):FINAL DIAGNOSIS:No Malignant Cells Are IdentifiedHypocellular Specimen Performed By: #### N ONJONH ####[facility] (DEFAULT)[address] [place] [address] Case Report [facility] Comment on above: Result Comment: Medi abhishek Cytology Report Case: [id number] Provider: Crow Diaz MD Collected: 09/02/2023 08:38 AMOrdering [facility] Received: 09/02/2023 10:44 AMPathologist: KENTON Caglepecimen: BRONCHOALVEOLAR LAVAGE, LLL BAL Performed By: #### N ONGNGRAEMEFNA ####[facility] (DEFAULT)[address] [place] [address] Clinical History Renal transplant. Normal O [facility] Comment on above: Performed By: #### N ONGNGRAEMEFNA ####[facility] (DEFAULT)[address] [place] [address] Gross Description Normal [facility] Comment on above: Result Comment: LLL BAL1 ml hazy colorless fld unfixed1 TP slide Pap stainFor Immediate Release to Patient's MyChart? Yes Performed By: #### N ONGNNONFNA ####[facility] (DEFAULT)[address] [place] [address] FUNGUS CULTUREon 09-02-2023 Bacteria identified Cx Nom (Unsp spec) Normal [facility] Comment on above: Order Comment: Ident ification was performed on the MALDI-TOF mass spectrometer Ariagorayper. This test was developed by [facility]. It has not been cleared or approved by the FDA. The laboratory is regulated under CLIA as qualified to perform high-complexity testing. This test is used for clinical purposes. It should not be regarded as investigational or for research. Result Comment: Grow [id number] [place] Histoplasma capsulatum Performed By: #### F UN ####[facility] (DEFAULT)[address] [place] [address] Bacteria identified Cx Nom (Unsp spec) NO GROWTH DAY 28 OF 28 Normal [facility] Comment on above: Order Comment: BAL f ungal culture Performed By: #### F UN ####[facility] (DEFAULT)[address] [place] [address] HEPATIC FUNCTION PANELon Albumin [Mass/Vol] 3.2 g/dL Low 3.5 - 5.0 g/dL [facility] ALP [Catalytic activity/Vol] 107 U/L 32 - 126 U/L [facility] ALT [Catalytic activity/Vol] 20 U/L 10 - 52 U/L [facility] AST [Catalytic activity/Vol] 31 U/L 10 - 39 U/L [facility] Bilirubin [Mass/Vol] 1.0 mg/dL [facility] - 1.5 mg/dL [facility] Bilirubin.direct [Mass/Vol] 0.3 mg/dL High NINF - 0.3 mg/dL [facility] Protein [Mass/Vol] 6.6 g/dL 6.4 - 8.3 g/dL [facility] Albumin [Mass/Vol] 3.2 g/dL Low 3.5-5.0 [facility] Comment on above: Performed By: #### C HM7, HFP, MGO ####[facility] (DEFAULT)[address] [place] [address] ALP [Catalytic activity/Vol] 107 U/L Normal 32-126 [facility] Comment on above: Performed By: #### C HM7, HFP, MGO ####[facility] (DEFAULT)[address] [place] [address] ALT [Catalytic activity/Vol] 20 U/L Normal 10-52 [facility] Comment on above: Performed By: #### C HM7, HFP, MGO ####[facility] (DEFAULT)[address] [place] [address] AST [Catalytic activity/Vol] 31 U/L Normal 10-39 [facility] Comment on above: Performed By: #### C HM7, HFP, MGO ####[facility] (DEFAULT)[address] [place] [address] Bilirubin [Mass/Vol] 1.0 mg/dL Normal <1.5 [facility] Comment on above: Performed By: #### C HM7, HFP, MGO ####[facility] (DEFAULT)[address] [place] [address] Bilirubin.indirect [Mass/Vol] 0.3 mg/dL High <0.3 [facility] Comment on above: Performed By: #### C HM7, HFP, MGO ####[facility] (DEFAULT)[address] [place] [address] Protein [Mass/Vol] 6.6 g/dL Normal 6.4-8.3 [facility] Comment on above: Performed By: #### C HM7, HFP, MGO ####[facility] (DEFAULT)[address] [place] [address] HISTOPLASMA ANTIGEN, FLUIDon 09-02-2023 FH SOURCE BAL RML Normal [facility] Comment on above: Performed By: #### Y ST ####[facility] (DEFAULT)[address] [place] [address] Histo FLD interpretation Negative Normal [facility] Comment on above: Result Comment: ---- ADDITIONAL INFORMATION Reference interval: None DetectedReportable Range: Positive Results reported in ng/mL from0.20 ng/mL to 20.00 ng/mLPositive Results above 20.00 ng/mL are reported as 'Abovethe Limit of Quantification'Cross-reactions occur with Blastomyces spp., Coccidioidesspp., and Paracoccidioides brasiliensis.This test was developed and its performance characteristicsdetermined by [employer]. It has not beencleared or approved by the FDA; however, FDA clearance orapproval is not currently required for clinical use. Theresults are not intended to be used as the sole means forclinical diagnosis or patient management decisions.Test Performed by:[facility] [place] [address] [place] [id number] Performed By: #### Y ST ####[facility] (DEFAULT)[address] [place] [address] Histoplasma Antigen, FLUID Not detected Normal [facility] Comment on above: Performed By: #### Y FHST ####[facility] (DEFAULT)[address] [place] [address] HISTOPLASMA ANTIGEN,URINEon 09-02-2023 H. capsulatum Ag (U) [Mass/Vol] Not detected ng/mL [facility] H. capsulatum Ag IA Ql (U) Not detected Not Detected [facility] HISTOPLASMA CAPSULATUM/BLAST OMYCES SPECIES,PCR FLUIDon 09-02-2023 HISTO/BLASTO RESULT Negative Normal Not Applicable [facility] Comment on above: Result Comment: A Ne gative result from BAL fluid does not rule out thepresence of Histoplasma capsulatum because the sensitivity from this source is suboptimal. ADDITIONAL INFORMATION This test was developed and its performance characteristicsdetermined by [facility] in a manner consistent with CLIArequirements. This test has not been cleared or approved bythe U.S. Food and Drug Administration.Test Performed by:[place] [id number] Director: Rosendo Bose M.D. Ph.D.; CLIA# [id number] Performed By: #### Y HBRP ####[facility] (DEFAULT)[address] [place] [address] Source BAL RML Normal [facility] Comment on above: Performed By: #### Y HBRP ####[facility] (DEFAULT)[address] [place] [address] HIV 1 AND 2 ANTIBODIES/P24 A NTIGENOrdered By: Wilma Luque on 09-02-2023 HIV 1+2 Ab+HIV1 p24 Ag IA Ql Non-Reactive Non Reactive [facility] Interpretation and review of laboratory results Normal [facility] HIV 1 AND 2 ANTIBODIES/P24 A NTIGENon 09-02-2023 HIV-1/HIV-2 Ab With p24 Antigen Non-Reactive Normal Non Reactive [facility] Comment on above: Performed By: #### L [id number] ####[facility] (DEFAULT)[address] [place] [address] LEGIONELLA CULTUREon 023 Bacteria identified Cx Nom (Unsp spec) NO GROWTH DAY 7 OF 7 Normal [facility] Comment on above: Performed By: #### L EGN ####[facility] (DEFAULT)[address] [place] [address] Bacteria identified Cx Nom (Unsp spec) NO GROWTH DAY 7 OF 7 Normal [facility] Comment on above: Order Comment: BAL l egionella culture Performed By: #### L EGN ####[facility] (DEFAULT)[address] [place] [address] LEGIONELLA PCRon 09-02-2023 Legionella species, Culture BAL RML Normal [facility] Comment on above: Performed By: #### Y LEGRP ####[facility] (DEFAULT)[address] [place] [address] Legionella, pcr result Negative Normal Not Applicable [facility] Comment on above: Result Comment: ---- ADDITIONAL INFORMATION This test was developed and its performance characteristicsdetermined by [facility] in a manner consistent with CLIArequirements. This test has not been cleared or approved bythe U.S. Food and Drug Administration.Test Performed by:[address] Director: Rosendo Bose M.D. Ph.D.; CLIA# [id number] Performed By: #### Y LEGRP ####[facility] (DEFAULT)[address] [place] [address] LOWER RESPIRATORY CULTURE, B ACTERIALon 09-02-2023 Bacteria identified Cx Nom (Unsp spec) NO GROWTH DAY 2 OF 2 Normal [facility] Comment on above: Performed By: #### R ES ####[facility] (DEFAULT)[address] [place] [address] Microscopic observation Gram stain Nom (Unsp spec) Normal [facility] Comment on above: Result Comment: Cyto centrifuge preparationNeutrophils, RareRed Blood Cells PresentNo organisms seen Performed By: #### R ES ####[facility] (DEFAULT)[address] [place] [address] Bacteria identified Cx Nom (Unsp spec) NO GROWTH DAY 2 OF 2 Normal [facility] Comment on above: Order Comment: BAL b acterial respiratory culture Performed By: #### R ES ####[facility] (DEFAULT)[address] [place] [address] Microscopic observation Gram stain Nom (Unsp spec) Normal [facility] Comment on above: Order Comment: BAL b acterial respiratory culture Result Comment: Cyto centrifuge preparationNeutrophils, ModerateRed Blood Cells PresentNo organisms seen Performed By: #### R ES ####[facility] (DEFAULT)[address] [place] [address] MAGNESIUMon 09-02-2023 Interpretation and review of laboratory results Normal [facility] Magnesium [Mass/Vol] 1.7 mg/dL 1.6 - 2 .6 mg/dL [facility] Magnesium [Mass/Vol] 1.7 mg/dL Normal 1.6-2.6 [facility] Comment on above: Performed By: #### C HM7, HFP, MGO ####[facility] (DEFAULT)[address] [place] [address] No Panel Informationon 09-02 Interpretation and review of laboratory results Abnormal [facility] PNEUMOCYSTIS JIROVECI,PCRon 09-02-2023 PN Report Status DNR Normal [facility] Comment on above: Performed By: #### Y PNRP ####[facility] (DEFAULT)[address] [place] [address] PN Specimen Source BAL RML Normal [facility] Comment on above: Performed By: #### Y PNRP ####[facility] (DEFAULT)[address] [place] [address] Pneum jiroveci comment DNR Normal [facility] Comment on above: Performed By: #### Y PNRP ####[facility] (DEFAULT)[address] [place] [address] Pneumocystis jiroveci,PCR result Negative Normal Not Applicable [facility] Comment on above: Result Comment: ---- ADDITIONAL INFORMATION This test was developed and its performance characteristicsdetermined by [facility] in a manner consistent with CLIArequirements. This test has not been cleared or approved bythe U.S. Food and Drug Administration.Test Performed by:[address] [address] Director: Rosendo Bose M.D. Ph.D.; CLIA# [id number] Performed By: #### Y PNRP ####[facility] (DEFAULT)[address] [place] [address] PN Report Status DNR Normal [facility] Comment on above: Performed By: #### Y PNRP ####[facility] (DEFAULT)[address] [place] [address] PN Specimen Source BAL LLL Normal [facility] Comment on above: Performed By: #### Y PNRP ####[facility] (DEFAULT)[address] [place] [address] Pneum jiroveci comment DNR Normal [facility] Comment on above: Performed By: #### Y PNRP ####[facility] (DEFAULT)[address] [place] [address] Pneumocystis jiroveci,PCR result Negative Normal Not Applicable [facility] Comment on above: Result Comment: ---- ADDITIONAL INFORMATION This test was developed and its performance characteristicsdetermined by [facility] in a manner consistent with CLIArMoSoirements. This test has not been cleared or approved bythe U.S. Food and Drug Administration.Test Performed by:[address] [address] Director: Rosendo Bose M.D. Ph.D.; CLIA# [id number] Performed By: #### Y PNRP ####[facility] (DEFAULT)[address] [place] [address] TACROLIMUS LEVEL, TROUGH (NH E DRUG LEVEL)on 09-02-2023 Interpretation and review of laboratory results Normal [facility] Tacrolimus (Bld) [Mass/Vol] 4.2 ng/mL [facility] Tacrolimus, Trough 4.2 ng/mL Normal [facility] Susana ow Transplant: 4.0-12.0, Therapeutic: 5.0-15.0 [facility] Comment on above: Order Comment: Pleas e draw at specified interval PRIOR to dose. Do not hold dose to wait for level. Specimens batched twice per day, (M-) and once per day weekendsMethod performed is a chemiluminescent microparticle immunoasssay on the [employer] i2000.The range is based on experience at [facility] and users should be aware that target concentrations vary widely depending on concomitant therapy, time post-transplant, and desired degree of immunosuppression. Performed By: #### T ACRO ####[facility] (DEFAULT)[address] [place] [address] CBC,PLATELETSon 09-01-2023 Erythrocyte distribution width (RBC) [Ratio] 13.4 % 10.9 - 14.3 % [facility] Hematocrit (Bld) [Volume fraction] 38.9 % Low 39.6 - 48.8 % [facility] Hemoglobin (Bld) [Mass/Vol] 12.7 g/dL Low 13.4 - 16.8 g/dL [facility] Interpretation and review of laboratory results Abnormal [facility] MCH (RBC) [Entitic mass] 27.6 pg 26.1 - 33.3 pg [facility] MCHC (RBC) [Mass/Vol] 32.6 g/dL 31.9 - 36.5 g/dL [facility] MCV (RBC) [Entitic vol] 84.6 fL 79.0 - 94.5 fL [facility] Platelet mean volume (Bld) [Entitic vol] 9.4 fL 8.7 - 12.3 fL [facility] Platelets (Bld) [#/Vol] 209 10*3/uL 146 - 337 K/uL [facility] RBC (Bld) [#/Vol] 4.60 10*6/uL [facility] WBC (Bld) [#/Vol] 4.41 10*3/uL 3.73 - 10. 10 K/uL [facility] Hematocrit (Bld) [Volume fraction] 38.9 % Low 39.6-48.8 [facility] Comment on above: Performed By: #### H EMOGC ####[facility] (DEFAULT)[address] [place] [address] Hemoglobin (Bld) [Mass/Vol] 12.7 g/dL Low 13.4-16.8 [facility] Comment on above: Performed By: #### H EMOGC ####[facility] (DEFAULT)[address] [place] [address] MCV (RBC) [Entitic vol] 84.6 fL Normal 79.0-94.5 [facility] Comment on above: Performed By: #### H EMOGC ####[facility] (DEFAULT)[address] [place] [address] Mean Cell Hgb 27.6 pg Normal 26.1-33.3 [facility] Comment on above: Performed By: #### H EMOGC ####[facility] (DEFAULT)[address] [place] [address] Mean Cell Hgb Conc 32.6 g/dL Normal 31.9-36.5 [facility] Comment on above: Performed By: #### H EMOGC ####[facility] (DEFAULT)[address] [place] [address] Platelet mean volume (Bld) [Entitic vol] 9.4 fL Normal 8.7-12.3 [facility] Comment on above: Performed By: #### H EMOGC ####[facility] (DEFAULT)[address] [place] [address] Platelets (Bld) [#/Vol] 209 10*3/uL Normal 146-337 [facility] Comment on above: Performed By: #### H [facility] ####[facility] (DEFAULT)[address] [place] [address] RBC (Bld) [#/Vol] 4.60 10*6/uL Normal 4.38-5.83 [facility] Comment on above: Performed By: #### H [facility] ####[facility] (DEFAULT)[address] [place] [address] RBC Distribution 13.4 % Normal 10.9-14.3 [facility] Comment on above: Performed By: #### H [facility] ####[facility] (DEFAULT)[address] [place] [address] WBC (Bld) [#/Vol] 4.41 10*3/uL Normal 3.73-10.10 [facility] Comment on above: Performed By: #### H [facility] ####[facility] (DEFAULT)[address] [place] [address] CHEM 7 (LYTES,BUN,CREA,GLUC) on 09-01-2023 Anion gap [Moles/Vol] 14 mmol/L 7 - 17 mmol/L [facility] Chloride [Moles/Vol] 103 mmol/L 98 - 10 8 mmol/L [facility] CO2 [Moles/Vol] 21 mmol/L 21 - 31 mmol/L [facility] Creatinine [Mass/Vol] 1.16 mg/dL 0.70 - 1.30 mg/dL [facility] eGFR, CKD-EPI, Male 76 - PINF [facility] Glucose [Mass/Vol] 117 mg/dL High 70 - 99 mg/dL [facility] Osmolality Calc [Osmolality] 285 [facility] Potassium [Moles/Vol] 4.2 mmol/L 3.5 - 5.0 mmol/L [facility] Sodium [Moles/Vol] 134 mmol/L Low 135 - 145 mmol/L [facility] Urea nitrogen [Mass/Vol] 18 mg/dL 7 - 25 mg/dL [facility] Urea nitrogen/Creatinine [Mass ratio] 16 mg/mg [facility] Anion gap [Moles/Vol] 14 mmol/L Normal 7-17 [facility] Comment on above: Performed By: #### H FP, MGO, CHM7 ####[facility] (DEFAULT)[address] [place] [address] Chloride [Moles/Vol] 103 mmol/L Normal 98-108 [facility] Comment on above: Performed By: #### H FP, MGO, CHM7 ####[facility] (DEFAULT)[address] [place] [address] CO2 [Moles/Vol] 21 mmol/L Normal 21-31 [facility] Comment on above: Performed By: #### H FP, MGO, CHM7 ####[facility] (DEFAULT)[address] [place] [address] Creatinine [Mass/Vol] 1.16 mg/dL Normal 0.70-1.30 [facility] Comment on above: Performed By: #### H FP, MGO, CHM7 ####[facility] (DEFAULT)[address] [place] [address] GFR/1.73 sq M.predicted among non-blacks MDRD (S/P/Bld) [Vol rate/Area] 76 mL/min/{1.73_m2} Normal >=60 [facility] Comment on above: Result Comment: Repo rted eGFR is based on the CKD-EPI 2020 equation using creatinine, age, and sex. Performed By: #### H FP, MGO, CHM7 ####[facility] (DEFAULT)[address] [place] [address] Glucose [Mass/Vol] 117 mg/dL High 70-99 [facility] Comment on above: Performed By: #### H ANTWAN MGO CHM7 ####[facility] (DEFAULT)[address] [place] [address] Osmolality [Osmolality] 285 mosm/kg Normal 278-305 [facility] Comment on above: Performed By: #### H ANTWAN MGO CHM7 ####[facility] (DEFAULT)[address] [place] [address] Potassium [Moles/Vol] 4.2 mmol/L Normal 3.5-5.0 [facility] Comment on above: Performed By: #### H ANTWAN MGO, CHM7 ####[facility] (DEFAULT)[address] [place] [address] Sodium [Moles/Vol] 134 mmol/L Low 135-145 [facility] Comment on above: Performed By: #### H ANTWAN MGO, CHM7 ####[facility] (DEFAULT)[address] [place] [address] Urea nitrogen [Mass/Vol] 18 mg/dL Normal 7-25 [facility] Comment on above: Performed By: #### Lydia MONCADA MGO, CHM7 ####[facility] (DEFAULT)[address] [place] [address] Urea nitrogen/Creatinine [Mass ratio] 16 mg/mg Normal [facility] Comment on above: Performed By: #### H FP MGO, CHM7 ####[facility] (DEFAULT)[address] [place] [address] CRYPTOCOCCAL ANTIGENon 09-01 Cryptococcus sp Ag Ql (S) Negative Negative [facility] Interpretation and review of laboratory results Normal [facility] Cryptococcus Antigen,Serum Negative Normal Negative [facility] Comment on above: Performed By: #### C RAG ####[facility] (DEFAULT)[address] [place] [address] HEPATIC FUNCTION PANELon Albumin [Mass/Vol] 3.3 g/dL Low 3.5 - 5.0 g/dL [facility] ALP [Catalytic activity/Vol] 112 U/L 32 - 126 U/L [facility] ALT [Catalytic activity/Vol] 21 U/L 10 - 52 U/L [facility] AST [Catalytic activity/Vol] 29 U/L 10 - 39 U/L [facility] Bilirubin [Mass/Vol] 1.0 mg/dL NINF - 1.5 mg/dL [facility] Bilirubin.direct [Mass/Vol] 0.2 mg/dL NINF - 0.3 mg/dL [facility] Protein [Mass/Vol] 6.8 g/dL 6.4 - 8.3 g/dL [facility] Albumin [Mass/Vol] 3.3 g/dL Low 3.5-5.0 [facility] Comment on above: Performed By: #### H ANTWAN MGO CHM7 ####[facility] (DEFAULT)[address] [place] [address] ALP [Catalytic activity/Vol] 112 U/L Normal 32-126 [facility] Comment on above: Performed By: #### H FP MGO CHM7 ####[facility] (DEFAULT)[address] [place] [address] ALT [Catalytic activity/Vol] 21 U/L Normal 10-52 [facility] Comment on above: Performed By: #### H FP MGO, CHM7 ####[facility] (DEFAULT)[address] [place] [address] AST [Catalytic activity/Vol] 29 U/L Normal 10-39 [facility] Comment on above: Performed By: #### H FP, MGO, CHM7 ####[facility] (DEFAULT)[address] [place] [address] Bilirubin [Mass/Vol] 1.0 mg/dL Normal <1.5 [facility] Comment on above: Performed By: #### H DOMENICA MONCADA CHM7 ####[facility] (DEFAULT)[address] [place] [address] Bilirubin.indirect [Mass/Vol] 0.2 mg/dL Normal <0.3 [facility] Comment on above: Performed By: #### H DOMENICA MONCADA CHM7 ####[facility] (DEFAULT)[address] [place] [address] Protein [Mass/Vol] 6.8 g/dL Normal 6.4-8.3 [facility] Comment on above: Performed By: #### H DOMENICA MONCADA CHM7 ####[facility] (DEFAULT)[address] [place] [address] L. pneumophila 1 Ag IA Ql (U )Ordered By: Carolin Miles on 09-01-2023 Interpretation and review of laboratory results Normal [facility] LEGIONELLA URINARY AGOrdered By: Carolin Miles on 09-01-2023 L. pneumophila 1 Ag IA Ql (U) Negative Negative [facility] MAGNESIUMon 09-01-2023 Interpretation and review of laboratory results Normal [facility] Magnesium [Mass/Vol] 1.6 mg/dL 1.6 - 2 .6 mg/dL [facility] Magnesium [Mass/Vol] 1.6 mg/dL Normal 1.6-2.6 [facility] Comment on above: Performed By: #### H DOMENICA MONCADA CHM7 ####[facility] (DEFAULT)[address] [place] [address] No Panel Informationon 09-01 Interpretation and review of laboratory results Abnormal [facility] PARVOVIRUS (B19) DNA, PCR, B LOODon 09-01-2023 PARVOVIRUS B19 BY RAPID PCR Not detected Normal Not Detected [facility] Comment on above: Result Comment: The primers/probe used in this assay will detectparvovirus B19 and V9 (genotypes 1 # 3) but maynot detect parvovirus genotype 2. The majority ofcirculating Parvovirus B19 strains in the [facility] are genotype 1. Genotype 2 is not believed tocirculate widely in the [facility], but has beenassociated with similar clinical features as genotype1. Genotype 3 is most prevalent in some [facility].This test was developed and its analyticalperformance characteristics have been determinedby [facility], [place], [place].It has not been cleared or approved by the FDA. Thisassay has been validated pursuant to the CLIAregulations and is used for clinical purposes.Test Performed at:[facility] [place] [id number] Benavides M.D., Ph.D.,Director of Laboratories Performed By: #### Y PRVP ####[facility] (DEFAULT)[address] [place] [address] [place] SPEC SOURCE Whole Blood Normal [facility] Comment on above: Performed By: #### Y PRVP ####[facility] (DEFAULT)[address] [place] [address] ASPERGILLUS (GALACTOMANNAN), ANTIGENon 08-31-2023 Aspergillus Antigen <0.500 Normal <0.5 [facility] Comment on above: Result Comment: ---- ADDITIONAL INFORMATION This is a qualitative test and the resulted index value isnot indicative of disease severity. Serial testing isrecommended for patients at high risk for invasiveaspergillosis.This assay was performed using the FDA-cleared [employer]lia Aspergillus Galactomannan EIA.Test Performed by:[facility] - [address] [address]Hli Director: Rosendo Bose M.D. Ph.D.; CLIA# [id number] Performed By: #### Y ASPR ####[facility] (DEFAULT)[address] [place] [address] CBC,PLATELETSon 08-31-2023 Erythrocyte distribution width (RBC) [Ratio] 13.3 % 10.9 - 14.3 % [facility] Hematocrit (Bld) [Volume fraction] 39.4 % Low 39.6 - 48.8 % [facility] Hemoglobin (Bld) [Mass/Vol] 12.8 g/dL Low 13.4 - 16.8 g/dL [facility] Interpretation and review of laboratory results Abnormal [facility] MCH (RBC) [Entitic mass] 27.6 pg 26.1 - 33.3 pg [facility] MCHC (RBC) [Mass/Vol] 32.5 g/dL 31.9 - 36.5 g/dL [facility] MCV (RBC) [Entitic vol] 85.1 fL 79.0 - 94.5 fL [facility] Platelet mean volume (Bld) [Entitic vol] 9.6 fL 8.7 - 12.3 fL [facility] Platelets (Bld) [#/Vol] 228 10*3/uL 146 - 337 K/uL [facility] RBC (Bld) [#/Vol] 4.63 10*6/uL [facility] WBC (Bld) [#/Vol] 4.77 10*3/uL 3.73 - 10. 10 K/uL [facility] Hematocrit (Bld) [Volume fraction] 39.4 % Low 39.6-48.8 [facility] Comment on above: Performed By: #### H EMO ####[facility] (DEFAULT)[address] [place] [address] Hemoglobin (Bld) [Mass/Vol] 12.8 g/dL Low 13.4-16.8 [facility] Comment on above: Performed By: #### H EMO ####[facility] (DEFAULT)[address] [place] [address] MCV (RBC) [Entitic vol] 85.1 fL Normal 79.0-94.5 [facility] Comment on above: Performed By: #### H EMOGC ####[facility] (DEFAULT)[address] [place] [address] Mean Cell Hgb 27.6 pg Normal 26.1-33.3 [facility] Comment on above: Performed By: #### H EMOGC ####[facility] (DEFAULT)[address] [place] [address] Mean Cell Hgb Conc 32.5 g/dL Normal 31.9-36.5 [facility] Comment on above: Performed By: #### H EMOGC ####[facility] (DEFAULT)[address] [place] [address] Platelet mean volume (Bld) [Entitic vol] 9.6 fL Normal 8.7-12.3 [facility] Comment on above: Performed By: #### H EMOGC ####[facility] (DEFAULT)[address] [place] [address] Platelets (Bld) [#/Vol] 228 10*3/uL Normal 146-337 [facility] Comment on above: Performed By: #### H EMOGC ####[facility] (DEFAULT)[address] [place] [address] RBC (Bld) [#/Vol] 4.63 10*6/uL Normal 4.38-5.83 [facility] Comment on above: Performed By: #### H EMOGC ####[facility] (DEFAULT)[address] [place] [address] RBC Distribution 13.3 % Normal 10.9-14.3 [facility] Comment on above: Performed By: #### H EMOGC ####[facility] (DEFAULT)[address] [place] [address] WBC (Bld) [#/Vol] 4.77 10*3/uL Normal 3.73-10.10 [facility] Comment on above: Performed By: #### H [facility] ####[facility] (DEFAULT)[address] [place] [address] CHEM 7 (LYTES,BUN,CREA,GLUC) on 08-31-2023 Anion gap [Moles/Vol] 13 mmol/L 7 - 17 mmol/L [facility] Chloride [Moles/Vol] 102 mmol/L 98 - 10 8 mmol/L [facility] CO2 [Moles/Vol] 23 mmol/L 21 - 31 mmol/L [facility] Creatinine [Mass/Vol] 1.37 mg/dL High 0.70 - 1.30 mg/dL [facility] eGFR, CKD-EPI, Male 62 - PINF [facility] Glucose [Mass/Vol] 112 mg/dL High 70 - 99 mg/dL [facility] Osmolality Calc [Osmolality] 284 [facility] Potassium [Moles/Vol] 4.4 mmol/L 3.5 - 5.0 mmol/L [facility] Sodium [Moles/Vol] 134 mmol/L Low 135 - 145 mmol/L [facility] Urea nitrogen [Mass/Vol] 16 mg/dL 7 - 25 mg/dL [facility] Urea nitrogen/Creatinine [Mass ratio] 12 mg/mg [facility] Anion gap [Moles/Vol] 13 mmol/L Normal 7-17 [facility] Comment on above: Performed By: #### M MERLE HFP, FERIB, PROCAL, CHM7 ####[facility] (DEFAULT)[address] [place] [address] Chloride [Moles/Vol] 102 mmol/L Normal 98-108 [facility] Comment on above: Performed By: #### M GO, HFP, FERIB, PROCAL, CHM7 ####[facility] (DEFAULT)[address] [place] [address] CO2 [Moles/Vol] 23 mmol/L Normal 21-31 [facility] Comment on above: Performed By: #### M GO, HFP, FERIB, PROCAL, CHM7 ####[facility] (DEFAULT)[address] [place] [address] Creatinine [Mass/Vol] 1.37 mg/dL High 0.70-1.30 [facility] Comment on above: Performed By: #### M GO, HFP, FERIB, PROCAL, CHM7 ####[facility] (DEFAULT)[address] [place] [address] GFR/1.73 sq M.predicted among non-blacks MDRD (S/P/Bld) [Vol rate/Area] 62 mL/min/{1.73_m2} Normal >=60 [facility] Comment on above: Result Comment: Repo rted eGFR is based on the CKD-EPI 2020 equation using creatinine, age, and sex. Performed By: #### M GO, HFP, FERIB, PROCAL, CHM7 ####[facility] (DEFAULT)[address] [place] [address] Glucose [Mass/Vol] 112 mg/dL High 70-99 [facility] Comment on above: Performed By: #### M GO, HFP, FERIB, PROCAL, CHM7 ####[facility] (DEFAULT)[address] [place] [address], [place] [address] Osmolality [Osmolality] 284 mosm/kg Normal 278-305 [facility] Comment on above: Performed By: #### M GO, HFP, FERIB, PROCAL, CHM7 ####[facility] (DEFAULT)[address] [place] [address] Potassium [Moles/Vol] 4.4 mmol/L Normal 3.5-5.0 [facility] Comment on above: Performed By: #### M GO, HFP, FERIB, PROCAL, CHM7 ####[facility] (DEFAULT)[address] [place] [address] Sodium [Moles/Vol] 134 mmol/L Low 135-145 [facility] Comment on above: Performed By: #### M GO, HFP, FERIB, PROCAL, CHM7 ####[facility] (DEFAULT)[address] [place] [address] Urea nitrogen [Mass/Vol] 16 mg/dL Normal 7-25 [facility] Comment on above: Performed By: #### M GO, HFP, FERIB, PROCAL, CHM7 ####[facility] (DEFAULT)[address] [place] [address] Urea nitrogen/Creatinine [Mass ratio] 12 mg/mg Normal [facility] Comment on above: Performed By: #### M GO, HFP, FERIB, PROCAL, CHM7 ####[facility] (DEFAULT)[address] [place] [address] CT ABDOMEN/PELVIS WITHOUT CO NTRASTon 08-31-2023 CT ABDOMEN/PELVIS WITHOUT CONTRAST Normal [facility] CT Abdomen and Pelvis WO con traston 08-31-2023 RADIOLOGY RADIOLOGY [facility] Radiology Study observation (narrative) [facility] CT Abdomen and Pelvis WO con trastOrdered By: Chavez Larkin on 08-31-2023 [facility] Work Phone: CT CHEST WITHOUT CONTRASTon 08-31-2023 CT CHEST WITHOUT CONTRAST Normal [facility] CT Chest WO contraston 08-31 RADIOLOGY RADIOLOGY [facility] Radiology Study observation (narrative) [facility] CT Chest WO contrastOrdered By: Daisha Patterson on 08-31-2023 [facility] Work Phone: FERRITINon 08-31-2023 Ferritin [Mass/Vol] 409.0 ng/mL High 10.5 - 3 07.3 ng/mL [facility] Interpretation and review of laboratory results Abnormal [facility] Ferritin [Mass/Vol] 409.0 ng/mL High 10.5-307.3 [facility] Comment on above: Performed By: #### M GO, HFP, FERIB, PROCAL, CHM7 ####[facility] (DEFAULT)[address] [place] [address] HEPATIC FUNCTION PANELon Albumin [Mass/Vol] 3.3 g/dL Low 3.5 - 5.0 g/dL [facility] ALP [Catalytic activity/Vol] 113 U/L 32 - 126 U/L [facility] ALT [Catalytic activity/Vol] 25 U/L 10 - 52 U/L [facility] AST [Catalytic activity/Vol] 31 U/L 10 - 39 U/L [facility] Bilirubin [Mass/Vol] 1.1 mg/dL [facility] - 1.5 mg/dL [facility] Bilirubin.direct [Mass/Vol] 0.3 mg/dL High NINF - 0.3 mg/dL [facility] Protein [Mass/Vol] 7.0 g/dL 6.4 - 8.3 g/dL [facility] Albumin [Mass/Vol] 3.3 g/dL Low 3.5-5.0 [facility] Comment on above: Performed By: #### M GO, HFP, FERIB, PROCAL, CHM7 ####[facility] (DEFAULT)[address] [facility] [address] ALP [Catalytic activity/Vol] 113 U/L Normal 32-126 [facility] Comment on above: Performed By: #### M GO, HFP, FERIB, PROCAL, CHM7 ####[facility] (DEFAULT)[address] [place] [address] ALT [Catalytic activity/Vol] 25 U/L Normal 10-52 [facility] Comment on above: Performed By: #### M GO, HFP, FERIB, PROCAL, CHM7 ####[facility] (DEFAULT)[address] [place] [address] AST [Catalytic activity/Vol] 31 U/L Normal 10-39 [facility] Comment on above: Performed By: #### M GO, HFP, FERIB, PROCAL, CHM7 ####[facility] (DEFAULT)[address] [place] [address] Bilirubin [Mass/Vol] 1.1 mg/dL Normal <1.5 [facility] Comment on above: Performed By: #### M GO, HFP, FERIB, PROCAL, CHM7 ####[facility] (DEFAULT)[address] [place] [address] Bilirubin.indirect [Mass/Vol] 0.3 mg/dL High <0.3 [facility] Comment on above: Performed By: #### M GO, HFP, FERIB, PROCAL, CHM7 ####[facility] (DEFAULT)[address] [place] [address] Protein [Mass/Vol] 7.0 g/dL Normal 6.4-8.3 [facility] Comment on above: Performed By: #### M GO, HFP, FERIB, PROCAL, CHM7 ####[facility] (DEFAULT)[address] [place] [address] LEGIONELLA URINARY AGon 10- Legionella Urinary Antigen Negative Normal Negative [facility] Comment on above: Performed By: #### L EGION ####[facility] (DEFAULT)[address] [place] [address] MAGNESIUMon 08-31-2023 Interpretation and review of laboratory results Normal [facility] Magnesium [Mass/Vol] 1.7 mg/dL 1.6 - 2 .6 mg/dL [facility] Magnesium [Mass/Vol] 1.7 mg/dL Normal 1.6-2.6 [facility] Comment on above: Performed By: #### M GO, HFP, FERIB, PROCAL, CHM7 ####[facility] (DEFAULT)[address] [place] [address] No Panel Informationon 08-31 Interpretation and review of laboratory results Abnormal [facility] PROCALCITONINon 08-31-2023 Interpretation and review of laboratory results Normal [facility] Procalcitonin [Mass/Vol] 0.23 ng/mL NINF - 0.50 ng/mL [facility] Procalcitonin 0.23 ng/mL Normal <0.50 [facility] Comment on above: Result Comment: Proc [...] and trend procalcitonin in various clinical settings. [email or web address] common cutoffs associated with bacterial infections are as follows.Respiratory tract infections: >0.25 ng/mLSepsis/septic shock: >0.5 ng/mLProcalcitonin should not be used alone as a diagnostic tool, however. All procalcitonin results should be interpreted in association with the patients clinical condition and all laboratory findings. Performed By: #### M GO, HFP, FERIB, PROCAL, CHM7 ####[facility] (DEFAULT)[address] [place] [address] TACROLIMUS LEVEL, TROUGH (NH E DRUG LEVEL)Ordered By: Yanira Marcum on 08-31-2023 Interpretation and review of laboratory results Normal [facility] Tacrolimus (Bld) [Mass/Vol] 5.9 ng/mL [facility] TACROLIMUS LEVEL, TROUGH (NH E DRUG LEVEL)on 08-31-2023 Tacrolimus, Trough 5.9 ng/mL Normal [facility] Susana ow Transplant: 4.0-12.0, Therapeutic: 5.0-15.0 [facility] Comment on above: Order Comment: Pleas e draw at specified interval PRIOR to dose. Do not hold dose to wait for level. Specimens batched twice per day, (M-F) and once per day weekendsMethod performed is a chemiluminescent microparticle immunoasssay on the [employer] i2000.The range is based on experience at [facility] and users should be aware that target concentrations vary widely depending on concomitant therapy, time post-transplant, and desired degree of immunosuppression. Performed By: #### T ACRO ####[facility] (DEFAULT)[address] [place] [address] URINE CULTUREOrdered By: Jorge crowe Held on 08-31-2023 Bacteria identified Cx Nom (Unsp spec) No Growth [facility] DARYL AURIS SCREEN BY PCRO rdered By: Mynor Alejandro on 08-30-2023 Daryl auris Screen by PCR Not detected Not Detected [facility] Interpretation and review of laboratory results Normal [facility] CBC,PLATELETSon 08-30-2023 Erythrocyte distribution width (RBC) [Ratio] 13.3 % 10.9 - 14.3 % [facility] Hematocrit (Bld) [Volume fraction] 41.3 % 39.6 - 48.8 % [facility] Hemoglobin (Bld) [Mass/Vol] 13.2 g/dL Low 13.4 - 16.8 g/dL [facility] Interpretation and review of laboratory results Abnormal [facility] MCH (RBC) [Entitic mass] 27.3 pg 26.1 - 33.3 pg [facility] MCHC (RBC) [Mass/Vol] 32.0 g/dL 31.9 - 36.5 g/dL [facility] MCV (RBC) [Entitic vol] 85.5 fL 79.0 - 94.5 fL [facility] Platelet mean volume (Bld) [Entitic vol] 9.2 fL 8.7 - 12.3 fL [facility] Platelets (Bld) [#/Vol] 235 10*3/uL 146 - 337 K/uL [facility] RBC (Bld) [#/Vol] 4.83 10*6/uL [facility] WBC (Bld) [#/Vol] 4.96 10*3/uL 3.73 - 10. 10 K/uL [facility] Hematocrit (Bld) [Volume fraction] 41.3 % Normal 39.6-48.8 [facility] Comment on above: Performed By: #### H EMO ####[facility] (DEFAULT)[address] [place] [address] Hemoglobin (Bld) [Mass/Vol] 13.2 g/dL Low 13.4-16.8 [facility] Comment on above: Performed By: #### H EMO ####[facility] (DEFAULT)[address] [place] [address] MCV (RBC) [Entitic vol] 85.5 fL Normal 79.0-94.5 [facility] Comment on above: Performed By: #### H EMO ####[facility] (DEFAULT)[address] [place] [address] Mean Cell Hgb 27.3 pg Normal 26.1-33.3 [facility] Comment on above: Performed By: #### H EMO ####[facility] (DEFAULT)[address] [place] [address] Mean Cell Hgb Conc 32.0 g/dL Normal 31.9-36.5 [facility] Comment on above: Performed By: #### H EMOGC ####[facility] (DEFAULT)[address] [place] [address] Platelet mean volume (Bld) [Entitic vol] 9.2 fL Normal 8.7-12.3 [facility] Comment on above: Performed By: #### H [facility] ####[facility] (DEFAULT)[address] [place] [address] Platelets (Bld) [#/Vol] 235 10*3/uL Normal 146-337 [facility] Comment on above: Performed By: #### H [facility] ####[facility] (DEFAULT)[address] [place] [address] RBC (Bld) [#/Vol] 4.83 10*6/uL Normal 4.38-5.83 [facility] Comment on above: Performed By: #### H EMO ####[facility] (DEFAULT)[address] [place] [address] RBC Distribution 13.3 % Normal 10.9-14.3 [facility] Comment on above: Performed By: #### H [facility] ####[facility] (DEFAULT)[address] [place] [address] WBC (Bld) [#/Vol] 4.96 10*3/uL Normal 3.73-10.10 [facility] Comment on above: Performed By: #### H [facility] ####[facility] (DEFAULT)[address] [place] [address] CHEM 7 (LYTES,BUN,CREA,GLUC) on 08-30-2023 Anion gap [Moles/Vol] 14 mmol/L 7 - 17 mmol/L [facility] Chloride [Moles/Vol] 102 mmol/L 98 - 10 8 mmol/L [facility] CO2 [Moles/Vol] 20 mmol/L Low 21 - 31 mmol/L [facility] Creatinine [Mass/Vol] 1.56 mg/dL High 0.70 - 1.30 mg/dL [facility] eGFR, CKD-EPI, Male 53 Low - PINF [facility] Glucose [Mass/Vol] 123 mg/dL High 70 - 99 mg/dL [facility] Osmolality Calc [Osmolality] 281 [facility] Potassium [Moles/Vol] 4.3 mmol/L 3.5 - 5.0 mmol/L [facility] Sodium [Moles/Vol] 132 mmol/L Low 135 - 145 mmol/L [facility] Urea nitrogen [Mass/Vol] 16 mg/dL 7 - 25 mg/dL [facility] Urea nitrogen/Creatinine [Mass ratio] 10 mg/mg [facility] Anion gap [Moles/Vol] 14 mmol/L Normal 7-17 [facility] Comment on above: Performed By: #### NATHANIEL RAMÍREZ, HFP ####[facility] (DEFAULT)[address] [place] [address] Chloride [Moles/Vol] 102 mmol/L Normal 98-108 [facility] Comment on above: Performed By: #### NATHANIEL RAMÍREZ, HFP ####[facility] (DEFAULT)[address] [place] [address] CO2 [Moles/Vol] 20 mmol/L Low 21-31 [facility] Comment on above: Performed By: #### NATHANIEL RAMÍREZ, HFP ####[facility] (DEFAULT)[address] [place] [address] Creatinine [Mass/Vol] 1.56 mg/dL High 0.70-1.30 [facility] Comment on above: Performed By: #### NATHANIEL RAMÍREZ, HFP ####[facility] (DEFAULT)[address] [place] [address] GFR/1.73 sq M.predicted among non-blacks MDRD (S/P/Bld) [Vol rate/Area] 53 mL/min/{1.73_m2} Low >=60 [facility] Comment on above: Result Comment: Repo rted eGFR is based on the CKD-EPI 2020 equation using creatinine, age, and sex. Performed By: #### NATHANIEL RAMÍREZ, HFP ####[facility] (DEFAULT)[address] [place] [address] Glucose [Mass/Vol] 123 mg/dL High 70-99 [facility] Comment on above: Performed By: #### NATHANIEL RAMÍREZ, HFP ####[facility] (DEFAULT)[address] [place] [address] Osmolality [Osmolality] 281 mosm/kg Normal 278-305 [facility] Comment on above: Performed By: #### NATHANIEL RAMÍREZ, HFP ####[facility] (DEFAULT)[address] [place] [address] Potassium [Moles/Vol] 4.3 mmol/L Normal 3.5-5.0 [facility] Comment on above: Performed By: #### NATHANIEL RAMÍREZ, HFP ####[facility] (DEFAULT)[address] [place] [address] Sodium [Moles/Vol] 132 mmol/L Low 135-145 [facility] Comment on above: Performed By: #### NATHANIEL RAMÍREZ, HFP ####[facility] (DEFAULT)[address] [place] [address] Urea nitrogen [Mass/Vol] 16 mg/dL Normal 7-25 [facility] Comment on above: Performed By: #### NATHANIEL RAMÍREZ, HFP ####[facility] (DEFAULT)[address] [place] [address] Urea nitrogen/Creatinine [Mass ratio] 10 mg/mg Normal [facility] Comment on above: Performed By: #### NATHANIEL RAMÍREZ, HFP ####[facility] (DEFAULT)[address] [place] [address] EXTRA MICROon 08-30-2023 [facility] HEPATIC FUNCTION PANELon Albumin [Mass/Vol] 3.7 g/dL 3.5 - 5.0 g/dL [facility] ALP [Catalytic activity/Vol] 115 U/L 32 - 126 U/L [facility] ALT [Catalytic activity/Vol] 22 U/L 10 - 52 U/L [facility] AST [Catalytic activity/Vol] 34 U/L 10 - 39 U/L [facility] Bilirubin [Mass/Vol] 1.2 mg/dL NINF - 1.5 mg/dL [facility] Bilirubin.direct [Mass/Vol] 0.3 mg/dL High NINF - 0.3 mg/dL [facility] Protein [Mass/Vol] 7.7 g/dL 6.4 - 8.3 g/dL [facility] Albumin [Mass/Vol] 3.7 g/dL Normal 3.5-5.0 [facility] Comment on above: Performed By: #### M MERLE CHM7, HFP ####[facility] (DEFAULT)[address] [place] [address] ALP [Catalytic activity/Vol] 115 U/L Normal 32-126 [facility] Comment on above: Performed By: #### M MERLE CHM7, HFP ####[facility] (DEFAULT)[address] [place] [address] ALT [Catalytic activity/Vol] 22 U/L Normal 10-52 [facility] Comment on above: Performed By: #### M MERLE CHM7, HFP ####[facility] (DEFAULT)[address] [place] [address] AST [Catalytic activity/Vol] 34 U/L Normal 10-39 [facility] Comment on above: Performed By: #### M GO CHM7, HFP ####[facility] (DEFAULT)[address] [place] [address] Bilirubin [Mass/Vol] 1.2 mg/dL Normal <1.5 [facility] Comment on above: Performed By: #### M GO, CHM7, HFP ####[facility] (DEFAULT)[address] [place] [address] Bilirubin.indirect [Mass/Vol] 0.3 mg/dL High <0.3 [facility] Comment on above: Performed By: #### NATHANIEL RAMÍREZ, HFP ####[facility] (DEFAULT)[address] [place] [address] Protein [Mass/Vol] 7.7 g/dL Normal 6.4-8.3 [facility] Comment on above: Performed By: #### NATHANIEL RAMÍREZ, HFP ####[facility] (DEFAULT)[address] [place] [address] MAGNESIUMon 08-30-2023 Interpretation and review of laboratory results Normal [facility] Magnesium [Mass/Vol] 1.8 mg/dL 1.6 - 2 .6 mg/dL [facility] Magnesium [Mass/Vol] 1.8 mg/dL Normal 1.6-2.6 [facility] Comment on above: Performed By: #### NATHANIEL RAMÍREZ, HFP ####[facility] (DEFAULT)[address] [place] [address] No Panel Informationon 08-30 Interpretation and review of laboratory results Abnormal [facility] CBC,PLATELETSon 08-29-2023 Erythrocyte distribution width (RBC) [Ratio] 13.4 % 10.9 - 14.3 % [facility] Hematocrit (Bld) [Volume fraction] 37.6 % Low 39.6 - 48.8 % [facility] Hemoglobin (Bld) [Mass/Vol] 12.2 g/dL Low 13.4 - 16.8 g/dL [facility] Interpretation and review of laboratory results Abnormal [facility] MCH (RBC) [Entitic mass] 27.6 pg 26.1 - 33.3 pg [facility] MCHC (RBC) [Mass/Vol] 32.4 g/dL 31.9 - 36.5 g/dL [facility] MCV (RBC) [Entitic vol] 85.1 fL 79.0 - 94.5 fL [facility] Platelet mean volume (Bld) [Entitic vol] 9.4 fL 8.7 - 12.3 fL [facility] Platelets (Bld) [#/Vol] 233 10*3/uL 146 - 337 K/uL [facility] RBC (Bld) [#/Vol] 4.42 10*6/uL [facility] WBC (Bld) [#/Vol] 4.92 10*3/uL 3.73 - 10. 10 K/uL [facility] Hematocrit (Bld) [Volume fraction] 37.6 % Low 39.6-48.8 [facility] Comment on above: Performed By: #### H EMO ####[facility] (DEFAULT)[address] [place] [address] Hemoglobin (Bld) [Mass/Vol] 12.2 g/dL Low 13.4-16.8 [facility] Comment on above: Performed By: #### H EMO ####[facility] (DEFAULT)[address] [place] [address] MCV (RBC) [Entitic vol] 85.1 fL Normal 79.0-94.5 [facility] Comment on above: Performed By: #### H EMOGC ####[facility] (DEFAULT)[address] [place] [address] Mean Cell Hgb 27.6 pg Normal 26.1-33.3 [facility] Comment on above: Performed By: #### H EMOGC ####[facility] (DEFAULT)[address] [place] [address] Mean Cell Hgb Conc 32.4 g/dL Normal 31.9-36.5 [facility] Comment on above: Performed By: #### H EMOGC ####[facility] (DEFAULT)[address] [place] [address] Platelet mean volume (Bld) [Entitic vol] 9.4 fL Normal 8.7-12.3 [facility] Comment on above: Performed By: #### [facility] ####[facility] (DEFAULT)[address] [place] [address] Platelets (Bld) [#/Vol] 233 10*3/uL Normal 146-337 [facility] Comment on above: Performed By: #### [facility] ####[facility] (DEFAULT)[address] [place] [address] RBC (Bld) [#/Vol] 4.42 10*6/uL Normal 4.38-5.83 [facility] Comment on above: Performed By: #### [facility] ####[facility] (DEFAULT)[address] [place] [address] RBC Distribution 13.4 % Normal 10.9-14.3 [facility] Comment on above: Performed By: #### [facility] ####[facility] (DEFAULT)[address] [place] [address] WBC (Bld) [#/Vol] 4.92 10*3/uL Normal 3.73-10.10 [facility] Comment on above: Performed By: #### [facility] ####[facility] (DEFAULT)[address] [place] [address] CHEM 7 (LYTES,BUN,CREA,GLUC) on 08-29-2023 Anion gap [Moles/Vol] 13 mmol/L 7 - 17 mmol/L [facility] Chloride [Moles/Vol] 105 mmol/L 98 - 10 8 mmol/L [facility] CO2 [Moles/Vol] 20 mmol/L Low 21 - 31 mmol/L [facility] Creatinine [Mass/Vol] 1.55 mg/dL High 0.70 - 1.30 mg/dL [facility] eGFR, CKD-EPI, Male 54 Low - PINF [facility] Glucose [Mass/Vol] 108 mg/dL High 70 - 99 mg/dL [facility] Osmolality Calc [Osmolality] 283 [facility] Potassium [Moles/Vol] 4.5 mmol/L 3.5 - 5.0 mmol/L [facility] Sodium [Moles/Vol] 133 mmol/L Low 135 - 145 mmol/L [facility] Urea nitrogen [Mass/Vol] 19 mg/dL 7 - 25 mg/dL [facility] Urea nitrogen/Creatinine [Mass ratio] 12 mg/mg [facility] Anion gap [Moles/Vol] 13 mmol/L Normal 7-17 [facility] Comment on above: Performed By: #### Rod GO, CHM7, HFP, GGTB ####[facility] (DEFAULT)[address] [place] [address] Chloride [Moles/Vol] 105 mmol/L Normal 98-108 [facility] Comment on above: Performed By: #### Rod GO, CHM7, HFP, GGTB ####[facility] (DEFAULT)[address] [facility] [address] CO2 [Moles/Vol] 20 mmol/L Low 21-31 [facility] Comment on above: Performed By: #### Rod GO, CHM7, HFP, GGTB ####[facility] (DEFAULT)[address] [place] [address] Creatinine [Mass/Vol] 1.55 mg/dL High 0.70-1.30 [facility] Comment on above: Performed By: #### Rod GO, CHM7, HFP, GGTB ####[facility] (DEFAULT)[address] [place] [address] GFR/1.73 sq M.predicted among non-blacks MDRD (S/P/Bld) [Vol rate/Area] 54 mL/min/{1.73_m2} Low >=60 [facility] Comment on above: Result Comment: Repo rted eGFR is based on the CKD-EPI 2020 equation using creatinine, age, and sex. Performed By: #### M GO, CHM7, HFP, GGTB ####[facility] (DEFAULT)[address] [place] [address] Glucose [Mass/Vol] 108 mg/dL High 70-99 [facility] Comment on above: Performed By: #### M GO, CHM7, HFP, GGTB ####[facility] (DEFAULT)[address] [place] [address] Osmolality [Osmolality] 283 mosm/kg Normal 278-305 [facility] Comment on above: Performed By: #### M GO, CHM7, HFP, GGTB ####[facility] (DEFAULT)[address] [place] [address] Potassium [Moles/Vol] 4.5 mmol/L Normal 3.5-5.0 [facility] Comment on above: Performed By: #### M GO, CHM7, HFP, GGTB ####[facility] (DEFAULT)[address] [place] [address] Sodium [Moles/Vol] 133 mmol/L Low 135-145 [facility] Comment on above: Performed By: #### M GO, CHM7, HFP, GGTB ####[facility] (DEFAULT)[address] [place] [address] Urea nitrogen [Mass/Vol] 19 mg/dL Normal 7-25 [facility] Comment on above: Performed By: #### M GO, CHM7, HFP, GGTB ####[facility] (DEFAULT)[address] [place] [address] Urea nitrogen/Creatinine [Mass ratio] 12 mg/mg Normal [facility] Comment on above: Performed By: #### M GO, CHM7, HFP, GGTB ####[facility] (DEFAULT)[address] [place] [address] GGTon 08-29-2023 Gamma glutamyl transferase [Catalytic activity/Vol] 64 U/L 8 - 64 U/L [facility] Interpretation and review of laboratory results Normal [facility] Gamma glutamyl transferase [Catalytic activity/Vol] 64 U/L Normal 8-64 [facility] Comment on above: Performed By: #### M GO, CHM7, HFP, GGTB ####[facility] (DEFAULT)[address] [place] [address] HEPATIC FUNCTION PANELon Albumin [Mass/Vol] 3.3 g/dL Low 3.5 - 5.0 g/dL [facility] ALP [Catalytic activity/Vol] 103 U/L 32 - 126 U/L [facility] ALT [Catalytic activity/Vol] 18 U/L 10 - 52 U/L [facility] AST [Catalytic activity/Vol] 27 U/L 10 - 39 U/L [facility] Bilirubin [Mass/Vol] 1.1 mg/dL NINF - 1.5 mg/dL [facility] Bilirubin.direct [Mass/Vol] 0.3 mg/dL High NINF - 0.3 mg/dL [facility] Protein [Mass/Vol] 6.8 g/dL 6.4 - 8.3 g/dL [facility] Albumin [Mass/Vol] 3.3 g/dL Low 3.5-5.0 [facility] Comment on above: Performed By: #### M MERLE CHM7, HFP, GGTB ####[facility] (DEFAULT)[address] [place] [id number] ALP [Catalytic activity/Vol] 103 U/L Normal 32-126 [facility] Comment on above: Performed By: #### M MERLE CHM7, HFP, GGTB ####[facility] (DEFAULT)[address] [place] [address] ALT [Catalytic activity/Vol] 18 U/L Normal 10-52 [facility] Comment on above: Performed By: #### M MERLE CHM7, HFP, GGTB ####[facility] (DEFAULT)[address] [place] [address] AST [Catalytic activity/Vol] 27 U/L Normal 10-39 [facility] Comment on above: Performed By: #### M GO, CHM7, HFP, GGTB ####[facility] (DEFAULT)[address] [place] [address] Bilirubin [Mass/Vol] 1.1 mg/dL Normal <1.5 [facility] Comment on above: Performed By: #### M GO, CHM7, HFP, GGTB ####[facility] (DEFAULT)[address] [place] [address] Bilirubin.indirect [Mass/Vol] 0.3 mg/dL High <0.3 [facility] Comment on above: Performed By: #### M GO, CHM7, HFP, GGTB ####[facility] (DEFAULT)[address] [place] [address] Protein [Mass/Vol] 6.8 g/dL Normal 6.4-8.3 [facility] Comment on above: Performed By: #### M GO, CHM7, HFP, GGTB ####[facility] (DEFAULT)[address] [place] [address] HISTOPLASMA AND BLASTOMYCES ANTIGEN, ENZYME IMMUNOASSAY, SERMon 08-29-2023 Histoplasma/Blastomy antonia Ag Result Detected Invalid Interpretation Code Not Detected [facility] Comment on above: Result Comment: Anti gen from Histoplasma or Blastomyces (unable todifferentiate) detected. Result should be correlated withclinical presentation, exposure history, and otherdiagnostic procedures, including culture, serology,histopathology, and/or radiographic findings, to aid in thedifferentiation between histoplasmosis and blastomycosis.CRITICAL RESULT Performed By: #### H IBAG ####[facility] (DEFAULT)[address] [place] [address] Histoplasma/Blastomy antonia Ag Value 5.3 ng/mL Normal [facility] Comment on above: Result Comment: ---- ADDITIONAL INFORMATION This test was developed and its performance characteristicsdetermined by [facility] in a manner consistent with CLIArequirements. This test has not been cleared or approved bythe U.S. Food and Drug Administration.Test Performed by:[address] Director: Rosendo Bose M.D. Ph.D.; CLIA# [id number] Performed By: #### H IBAG ####[facility] (DEFAULT)[address] [address] HISTOPLASMA ANTIGEN,URINEon 08-29-2023 HISTOPLASM AG, URINE Not detected Normal Not Detected [facility] Comment on above: Result Comment: No H istoplasma antigen detected.False negative results may occur. Repeat testing on anew specimen should be considered if clinically indicated. Performed By: #### Y HISTG ####[facility] (DEFAULT)[address] [address] Histoplasma Ag Value Not detected Normal [facility] Comment on above: Result Comment: ---- ADDITIONAL INFORMATION This test has been modified from the mothers helper'sinstructions. Its performance characteristics weredetermined by [facility] in a manner consistent withCLIA requirements. This test has not been cleared orapproved by the U.S. Food and Drug Administration.Test Performed by:[address] [id number] Director: Rosendo Bose M.D. Ph.D.; CLIA# [id number] Performed By: #### Y HISTG ####[facility] (DEFAULT)[address] [address] MAGNESIUMon 08-29-2023 Interpretation and review of laboratory results Normal [facility] Magnesium [Mass/Vol] 1.7 mg/dL 1.6 - 2 .6 mg/dL [facility] Magnesium [Mass/Vol] 1.7 mg/dL Normal 1.6-2.6 [facility] Comment on above: Performed By: #### M GO, CHM7, HFP, GGTB ####[facility] (DEFAULT)[address] [place] [id number] No Panel Informationon 08-29 Interpretation and review of laboratory results Abnormal [facility] PT,INR,PTTon 08-29-2023 aPTT Coag (PPP) [Time] 29.3 s [facility] INR Coag (Bld) [Relative time] 1.1 {INR} 0.9 - 1.1 [facility] Interpretation and review of laboratory results Normal [facility] PT Coag (PPP) [Time] 13.8 s [facility] aPTT Coag (Bld) [Time] 29.3 s Normal 24.0-34.3 [facility] Comment on above: Performed By: #### P TPTT ####[facility] (DEFAULT)[address] [place] [address] INR Coag (PPP) [Relative time] 1.1 {INR} Normal 0.9-1.1 [facility] Comment on above: Performed By: #### P TPTT ####[facility] (DEFAULT)[address] [place] [address] PT Coag (PPP) [Time] 13.8 s Normal 11.9-14.2 [facility] Comment on above: Performed By: #### P TPTT ####[facility] (DEFAULT)[address] [place] [address] Portable XR Chest Viewson RADIOLOGY RADIOLOGY [facility] Portable XR Chest ViewsOrder ed By: Gerald Baer on 08-29-2023 [facility] Work Phone: TACROLIMUS LEVEL, TROUGH (NH E DRUG LEVEL)on 08-29-2023 Interpretation and review of laboratory results Normal [facility] Tacrolimus (Bld) [Mass/Vol] 8.9 ng/mL [facility] Tacrolimus, Trough 8.9 ng/mL Normal Bone Susana ow Transplant: 4.0-12.0, Therapeutic: 5.0-15.0 [facility] Comment on above: Order Comment: Pleas e draw at specified interval PRIOR to dose. Do not hold dose to wait for level. Specimens batched twice per day, (M-F) and once per day weekendsMethod performed is a chemiluminescent microparticle immunoasssay on the [employer] i2000.The range is based on experience at [facility] and users should be aware that target concentrations vary widely depending on concomitant therapy, time post-transplant, and desired degree of immunosuppression. Performed By: #### T ACRO ####[facility] (DEFAULT)[address] [place] [address] Tacrolimus, Trough 8.7 ng/mL Normal Bone Susana ow Transplant: 4.0-12.0, Therapeutic: 5.0-15.0 [facility] Comment on above: Order Comment: Pleas e draw at specified interval PRIOR to dose. Do not hold dose to wait for level. Specimens batched twice per day, (M-F) and once per day weekendsMethod performed is a chemiluminescent microparticle immunoasssay on the [employer] i2000.The range is based on experience at [facility] and users should be aware that target concentrations vary widely depending on concomitant therapy, time post-transplant, and desired degree of immunosuppression. Performed By: #### T ACRO ####[facility] (DEFAULT)[address] [place] [address] TACROLIMUS LEVEL, TROUGH (NH E DRUG LEVEL)Ordered By: Roxanne Louie on 08-29-2023 Interpretation and review of laboratory results Normal [facility] Tacrolimus (Bld) [Mass/Vol] 8.7 ng/mL [facility] URINALYSIS REFLEX TO CULTURE PERFORMABLEOrdered By: Shaji Kelly on 08-29-2023 Appearance (U) Clear Clear [facility] Bacteria LM Ql (Urine sed) ABSENT ABSENT [facility] Calcium Oxalate Crystals PRESENT [facility] Color (U) Yellow Yellow [facility] Epithelial cells.squamous LM Ql (Urine sed) 0-2/hpf 0-2/hpf, 3-5/hpf = 1+ [facility] Glucose Test strip (U) [Mass/Vol] Negative Negative [facility] Interpretation and review of laboratory results Abnormal [facility] Ketones (U) [Mass/Vol] Negative Negative [facility] Leukocyte esterase Test strip Ql (U) Negative Negative [facility] Nitrite Ql (U) Negative Negative [facility] pH (U) 6.0 [pH] 5.0 - 7.0 [facility] Protein (U) [Mass/Vol] Negative Negative [facility] RBC (U) [#/Vol] Trace Abnormal Negative [facility] RBC LM.HPF (Urine sed) [#/Area] 3-5 Abnormal [facility] Specific gravity (U) [Rel density] 1.015 1.001 - 1.035 [facility] Urobilinogen (U) [Mass/Vol] 1.0 E.U./dL 0.2 E.U/dL, 1.0 E.U/dL [facility] WBC LM.HPF (Urine sed) [#/Area] 0 - 5 [facility] URINALYSIS REFLEX TO CULTURE PERFORMABLEon 08-29-2023 Appearance (U) Clear Normal Clear [facility] Comment on above: Order Comment: For i ndwelling catheters, specimen collection is acceptable on catheter day 1 and 2 only. ? Performed By: #### U [id number] ####[facility] (DEFAULT)[address] [place] [address] Bacteria ABSENT Normal ABSENT [facility] Comment on above: Order Comment: For i ndwelling catheters, specimen collection is acceptable on catheter day 1 and 2 only. ? Performed By: #### U [id number] ####[facility] (DEFAULT)[address] [place] [address] Blood Urine Trace Abnormal Negative [facility] Comment on above: Order Comment: For i ndwelling catheters, specimen collection is acceptable on catheter day 1 and 2 only. ? Performed By: #### U [id number] ####[facility] (DEFAULT)[address] [place], [place] [address], [place] [address] Calcium Oxalate Crystals PRESENT Normal [facility] Comment on above: Order Comment: For i ndwelling catheters, specimen collection is acceptable on catheter day 1 and 2 only. ? Performed By: #### U [id number] ####[facility] (DEFAULT)[address] [place], [place] [address], [place] [address] Color (U) Yellow Normal Yellow [facility] Comment on above: Order Comment: For i ndwelling catheters, specimen collection is acceptable on catheter day 1 and 2 only. ? Performed By: #### U [id number] ####[facility] (DEFAULT)[address] [place] [address] Glucose Ql (U) Negative Normal Negative [facility] Comment on above: Order Comment: For i ndwelling catheters, specimen collection is acceptable on catheter day 1 and 2 only. ? Performed By: #### U [id number] ####[facility] (DEFAULT)[address] [place], [place] [address], [place] [address] Ketones Ql (U) Negative Normal Negative [facility] Comment on above: Order Comment: For i ndwelling catheters, specimen collection is acceptable on catheter day 1 and 2 only. ? Performed By: #### U [id number] ####[facility] (DEFAULT)[address] [place] [address] Leukocyte esterase Test strip Ql (U) Negative Normal Negative [facility] Comment on above: Order Comment: For i ndwelling catheters, specimen collection is acceptable on catheter day 1 and 2 only. ? Performed By: #### U [id number] ####[facility] (DEFAULT)[address] [place] [address] Nitrites Urine Negative Normal Negative [facility] Comment on above: Order Comment: For i ndwelling catheters, specimen collection is acceptable on catheter day 1 and 2 only. ? Performed By: #### U [id number] ####[facility] (DEFAULT)[address] [place] [address] pH (U) 6.0 [pH] Normal 5.0-7.0 [facility] Comment on above: Order Comment: For i ndwelling catheters, specimen collection is acceptable on catheter day 1 and 2 only. ? Performed By: #### U [id number] ####[facility] (DEFAULT)[address] [place] [address] Protein Urine Negative Normal Negative [facility] Comment on above: Order Comment: For i ndwelling catheters, specimen collection is acceptable on catheter day 1 and 2 only. ? Performed By: #### U [id number] ####[facility] (DEFAULT)[address] [place], [place] [address] [address] RBC Urine 3-5 Abnormal 0-2 [facility] Comment on above: Order Comment: For i ndwelling catheters, specimen collection is acceptable on catheter day 1 and 2 only. ? Performed By: #### U [id number] ####[facility] (DEFAULT)[address] [place] [address] Specific [place] Urine 1.015 Normal 1.001-1.035 [facility] Comment on above: Order Comment: For i ndwelling catheters, specimen collection is acceptable on catheter day 1 and 2 only. ? Performed By: #### U [id number] ####[facility] (DEFAULT)[address] [place] [address] Squamous/Epithelial Cells 0-2/hpf Normal 0-2/hpf, 3-5/hpf = 1+ [facility] Comment on above: Order Comment: For i ndwelling catheters, specimen collection is acceptable on catheter day 1 and 2 only. ? Performed By: #### U [id number] ####[facility] (DEFAULT)[address] [place] [address] Urobilinogen Urine 1.0 E.U./dL Normal 0.2 E.U/d L, 1.0 E.U/dL [facility] Comment on above: Order Comment: For i ndwelling catheters, specimen collection is acceptable on catheter day 1 and 2 only. ? Performed By: #### U [id number] ####[facility] (DEFAULT)[address] [place] [address] WBC Urine 0 - 5 Normal 0 - 5 [facility] Comment on above: Order Comment: For i ndwelling catheters, specimen collection is acceptable on catheter day 1 and 2 only. ? Performed By: #### U [id number] ####[facility] (DEFAULT)[address] [place] [address] URINE CULTUREon 08-29-2023 Bacteria identified Cx Nom (U) No Growth Normal [facility] Comment on above: Order Comment: For i ndwelling catheters, specimen collection is acceptable on catheter day 1 and 2 only. Sung top vacutainer. Urine must be to the fill line to process (4mls). If minimum volume, send urine in a yellow top vacutainer tube. Performed By: #### U R ####[facility] (DEFAULT)[address] [place] [address] US RENAL TRANSPLANT SCANon 0 08-29-2023 US RENAL TRANSPLANT SCAN Normal [facility] US for transplanted kidney l imitedon 08-29-2023 RADIOLOGY RADIOLOGY [facility] Radiology Study observation (narrative) [facility] US for transplanted kidney l imitedOrdered By: Romana Matias on 08-29-2023 [facility] Work Phone: XR CHEST PORTABLEon 08-29-20 23 XR CHEST PORTABLE Normal [facility] BLOOD CULTUREon 08-28-2023 Bacteria identified Cx Nom (Unsp spec) NO GROWTH DAY 5 OF 5 Normal [facility] Comment on above: Order Comment: 2 Bot tles (1 Set - consists of 1 Aerobic bottle and 1 Anaerobic bottle) -1st Peripheral DrawFor syringe method draw:If able to obtain adequate sample (20 ml) inoculate anaerobic bottle firstIf inadequate sample obtained (less than 20 ml) inoculate aerobic bottle firstFor vacutainer method draw: Fill aerobic bottle first, then anaerobic Performed By: #### B LDCULT ####[facility] (DEFAULT)[address] [place] [address] Bacteria identified Cx Nom (Unsp spec) NO GROWTH DAY 5 OF 5 Normal [facility] Comment on above: Order Comment: 2 Bot tles (1 Set - consists of 1 Aerobic bottle and 1 Anaerobic bottle) -1st Peripheral DrawFor syringe method draw:If able to obtain adequate sample (20 ml) inoculate anaerobic bottle firstIf inadequate sample obtained (less than 20 ml) inoculate aerobic bottle firstFor vacutainer method draw: Fill aerobic bottle first, then anaerobic Performed By: #### B LDCULT ####[facility] (DEFAULT)[address] [place] [address] DARYL AURIS SCREEN BY PCRo n 08-28-2023 Daryl auris Screen by PCR Not detected Normal Not Detected [facility] Comment on above: Order Comment: This test was performed using a real-time PCR assay. This test was developed, and its performance characteristics determined by [facility]. It has not been cleared or approved by the FDA. The laboratory is regulated under CLIA as qualified to perform high-complexity testing. This test is used for clinical purposes. It should not be regarded as investigational or for research. Performed By: #### C ANDIDA AURIS SCREEN BY PCR ####[facility] (DEFAULT)[address] [place] [address] CBC AND ELECTRONIC DIFFon Basophils (Bld) [#/Vol] K/uL 0.00 - 0.09 K/uL [facility] Basophils/100 WBC (Bld) 0.6 % [facility] Differential cell count method Nom (Bld) Electronic Differential [facility] Eosinophils (Bld) [#/Vol] 0.10 10*3/uL 0.00 - 0.48 K/uL [facility] Eosinophils/100 WBC (Bld) 2.1 % [facility] Erythrocyte distribution width (RBC) [Ratio] 13.4 % 10.9 - 14.3 % [facility] Hematocrit (Bld) [Volume fraction] 37.9 % Low 39.6 - 48.8 % [facility] Hemoglobin (Bld) [Mass/Vol] 12.4 g/dL Low 13.4 - 16.8 g/dL [facility] Immature granulocytes (Bld) [#/Vol] K/uL NINF - 0.07 K/uL [facility] Immature granulocytes/100 WBC (Bld) 0.6 % [facility] Interpretation and review of laboratory results Abnormal [facility] Lymphocytes (Bld) [#/Vol] 1.76 10*3/uL 0.83 - 3.57 K/uL [facility] Lymphocytes/100 WBC (Bld) 37.1 % [facility] MCH (RBC) [Entitic mass] 27.8 pg 26.1 - 33.3 pg [facility] MCHC (RBC) [Mass/Vol] 32.7 g/dL 31.9 - 36.5 g/dL [facility] MCV (RBC) [Entitic vol] 85.0 fL 79.0 - 94.5 fL [facility] Monocytes (Bld) [#/Vol] 0.66 10*3/uL 0.24 - 0.93 K/uL [facility] Monocytes/100 WBC (Bld) 13.9 % [facility] Neutrophils (Bld) [#/Vol] 2.16 10*3/uL 1.57 - 6.19 K/uL [facility] Nucleated RBC/100 WBC (Bld) [Ratio] 0.0 % NINF [facility] Platelet mean volume (Bld) [Entitic vol] 9.3 fL 8.7 - 12.3 fL [facility] Platelets (Bld) [#/Vol] 262 10*3/uL 146 - 337 K/uL [facility] RBC (Bld) [#/Vol] 4.46 10*6/uL [facility] Segmented neutrophils/100 WBC (Bld) 45.7 % [facility] WBC (Bld) [#/Vol] 4.74 10*3/uL 3.73 - 10. 10 K/uL [facility] Abs Baso Auto < Normal 0.00-0.09 [facility] Comment on above: Performed By: #### L [id number] ####[facility] (DEFAULT)[address] [place] [address] Basophils/100 WBC (Bld) 0.6 % Normal [facility] Comment on above: Performed By: #### L [id number] ####[facility] (DEFAULT)[address] [place] [address] DIFF STATUS Electronic Differential Normal [facility] Comment on above: Performed By: #### L [id number] ####[facility] (DEFAULT)[address] [place] [address] Eosinophils (Bld) [#/Vol] 0.10 10*3/uL Normal 0.00-0.48 [facility] Comment on above: Performed By: #### L [id number] ####[facility] (DEFAULT)[address] [place] [address] Eosinophils/100 WBC (Bld) 2.1 % Normal [facility] Comment on above: Performed By: #### L [id number] ####[facility] (DEFAULT)[address] [place] [address] Hematocrit (Bld) [Volume fraction] 37.9 % Low 39.6-48.8 [facility] Comment on above: Performed By: #### L [id number] ####[facility] (DEFAULT)[address] [place] [address] Hemoglobin (Bld) [Mass/Vol] 12.4 g/dL Low 13.4-16.8 [facility] Comment on above: Performed By: #### L [id number] ####[facility] (DEFAULT)[address] [place] [address] Immature Grans % 0.6 % Normal [facility] Comment on above: Performed By: #### L [id number] ####[facility] (DEFAULT)[address] [place] [address] Immature Grans Absolute < Normal <=0.07 [facility] Comment on above: Performed By: #### L [id number] ####[facility] (DEFAULT)[address] [place] [address] Lymphocytes (Bld) [#/Vol] 1.76 10*3/uL Normal 0.83-3.57 [facility] Comment on above: Performed By: #### L [id number] ####[facility] (DEFAULT)[address] [place] [address] Lymphocytes/100 WBC (Bld) 37.1 % Normal [facility] Comment on above: Performed By: #### L [id number] ####[facility] (DEFAULT)[address] [place] [address] MCV (RBC) [Entitic vol] 85.0 fL Normal 79.0-94.5 [facility] Comment on above: Performed By: #### L [id number] ####[facility] (DEFAULT)[address] [place] [address] Mean Cell Hgb 27.8 pg Normal 26.1-33.3 [facility] Comment on above: Performed By: #### L [id number] ####[facility] (DEFAULT)[address] [place] [address] Mean Cell Hgb Conc 32.7 g/dL Normal 31.9-36.5 [facility] Comment on above: Performed By: #### L [id number] ####[facility] (DEFAULT)[address] [place] [place] [address] Monocytes (Bld) [#/Vol] 0.66 10*3/uL Normal 0.24-0.93 [facility] Comment on above: Performed By: #### L [id number] ####[facility] (DEFAULT)[address] [place] [address] Monocytes/100 WBC (Bld) 13.9 % Normal [facility] Comment on above: Performed By: #### L [id number] ####[facility] (DEFAULT)[address] [place] [address] Nucleated RBC 0.0 /100 WBC Normal <=0.2 [facility] Comment on above: Performed By: #### L [id number] ####[facility] (DEFAULT)[address] [place] [address] Platelet mean volume (Bld) [Entitic vol] 9.3 fL Normal 8.7-12.3 [facility] Comment on above: Performed By: #### L [id number] ####[facility] (DEFAULT)[address] [place] [address] Platelets (Bld) [#/Vol] 262 10*3/uL Normal 146-337 [facility] Comment on above: Performed By: #### L [id number] ####[facility] (DEFAULT)[address] [place] [address] RBC (Bld) [#/Vol] 4.46 10*6/uL Normal 4.38-5.83 [facility] Comment on above: Performed By: #### L [id number] ####[facility] (DEFAULT)[address] [place] [address] RBC Distribution 13.4 % Normal 10.9-14.3 [facility] Comment on above: Performed By: #### L [id number] ####[facility] (DEFAULT)[address] [place] [address] Segs + Bands Auto 45.7 % Normal [facility] Comment on above: Performed By: #### L [id number] ####[facility] (DEFAULT)[address] [place] [address] Segs + Bands,Absolute Auto 2.16 K/uL Normal 1.57-6.19 [facility] Comment on above: Performed By: #### L [id number] ####[facility] (DEFAULT)[address] [place] [address] WBC (Bld) [#/Vol] 4.74 10*3/uL Normal 3.73-10.10 [facility] Comment on above: Performed By: #### L [id number] ####[facility] (DEFAULT)[address] [place] [address] CHEM 6 (LYTES, BUN CREA)on 0 08-28-2023 Anion gap [Moles/Vol] 13 mmol/L 7 - 17 mmol/L [facility] Chloride [Moles/Vol] 103 mmol/L 98 - 10 8 mmol/L [facility] CO2 [Moles/Vol] 22 mmol/L 21 - 31 mmol/L [facility] Creatinine [Mass/Vol] 1.62 mg/dL High 0.70 - 1.30 mg/dL [facility] eGFR, CKD-EPI, Male 52 Low - PINF [facility] Interpretation and review of laboratory results Abnormal [facility] Potassium [Moles/Vol] 4.3 mmol/L 3.5 - 5.0 mmol/L [facility] Sodium [Moles/Vol] 134 mmol/L Low 135 - 145 mmol/L [facility] Urea nitrogen [Mass/Vol] 22 mg/dL 7 - 25 mg/dL [facility] Urea nitrogen/Creatinine [Mass ratio] 14 mg/mg [facility] Anion gap [Moles/Vol] 13 mmol/L Normal 7-17 [facility] Comment on above: Performed By: #### C HM6 ####[facility] (DEFAULT)[address] [address] [facility] [place] [address] Chloride [Moles/Vol] 103 mmol/L Normal 98-108 [facility] Comment on above: Performed By: #### C HM6 ####[facility] (DEFAULT)[address] [place] [address] CO2 [Moles/Vol] 22 mmol/L Normal 21-31 [facility] Comment on above: Performed By: #### C HM6 ####[facility] (DEFAULT)[address] [place] [address] Creatinine [Mass/Vol] 1.62 mg/dL High 0.70-1.30 [facility] Comment on above: Performed By: #### C HM6 ####[facility] (DEFAULT)[address] [place] [address] GFR/1.73 sq M.predicted among non-blacks MDRD (S/P/Bld) [Vol rate/Area] 51 mL/min/{1.73_m2} Low >=60 [facility] Comment on above: Result Comment: Repo rted eGFR is based on the CKD-EPI 2020 equation using creatinine, age, and sex. Performed By: #### C HM6 ####[facility] (DEFAULT)[address] [place] [address] Potassium [Moles/Vol] 4.3 mmol/L Normal 3.5-5.0 [facility] Comment on above: Performed By: #### C HM6 ####[facility] (DEFAULT)[address] [place] [address] Sodium [Moles/Vol] 134 mmol/L Low 135-145 [facility] Comment on above: Performed By: #### C HM6 ####[facility] (DEFAULT)[address] [place] [address] Urea nitrogen [Mass/Vol] 22 mg/dL Normal 7-25 [facility] Comment on above: Performed By: #### C HM6 ####[facility] (DEFAULT)[address] [place] [address] Urea nitrogen/Creatinine [Mass ratio] 14 mg/mg Normal [facility] Comment on above: Performed By: #### C HM6 ####[facility] (DEFAULT)[address] [place] [address], [place] [address] IMMUNOCOMPROMISED RESPIRATOR Y PANELon 08-28-2023 Adenovirus - Pcr Not detected Normal Not Detected [facility] Comment on above: Order Comment: Viral [...] acid assay. Performed By: #### I CRESP ####[facility] (DEFAULT)[address] [place] [address], [place] [address] Bordetella Parapertussis Not detected Normal Not Detected [facility] Comment on above: Order Comment: Viral [...] assay. Performed By: #### I CRESP ####[facility] (DEFAULT)[address] [place] [address] Bordetella Pertussis Not detected Normal Not Detected [facility] Comment on above: Order Comment: Viral [...] acid assay. Performed By: #### I CRESP ####[facility] (DEFAULT)[address] [address] Chlamydia Pneumoniae Not detected Normal Not Detected [facility] Comment on above: Order Comment: Viral [...] acid assay. Performed By: #### I CRESP ####[facility] (DEFAULT)[address] [place] [address] Coronavirus 229E Not detected Normal Not Detected [facility] Comment on above: Order Comment: Viral [...] acid assay. Performed By: #### I CRESP ####[facility] (DEFAULT)[address] [address] Coronavirus Hku1 Not detected Normal Not Detected [facility] Comment on above: Order Comment: Viral [...] acid assay. Performed By: #### I CRESP ####[facility] (DEFAULT)[address] [place] [address] Coronavirus Nl63 Not detected Normal Not Detected [facility] Comment on above: Order Comment: Viral [...] acid assay. Performed By: #### I CRESP ####[facility] (DEFAULT)[address] [place] [address] Coronavirus Oc43 Not detected Normal Not Detected [facility] Comment on above: Order Comment: Viral [...] acid assay. Performed By: #### I CRESP ####[facility] (DEFAULT)[address] [place] [address], [place] [address] Influenza A - Pcr Not detected Normal [...] acid assay. Performed By: #### I CRESP ####[facility] (DEFAULT)[address] [address] Influenza B - Pcr Not detected Normal [...] acid assay. Performed By: #### I CRESP ####[facility] (DEFAULT)[address] [place] [address] Metapneumovirus - Pcr Not detected Normal Not Detected [facility] Comment on above: Order Comment: Viral [...] acid assay. Performed By: #### I CRESP ####[facility] (DEFAULT)[address] [place] [address], [place] [address] Mycoplasma Pneumoniae Not detected Normal Not Detected [facility] Comment on above: Order Comment: Viral [...] acid assay. Performed By: #### I CRESP ####[facility] (DEFAULT)[address] [place] [address] Parainfluenza 1 - Pcr Not detected Normal Not Detected [facility] Comment on above: Order Comment: Viral [...] acid assay. Performed By: #### I CRESP ####[facility] (DEFAULT)[address] [place] [address], [place] [address] Parainfluenza 2 - Pcr Not detected Normal Not Detected [facility] Comment on above: Order Comment: Viral [...] acid assay. Performed By: #### I CRESP ####[facility] (DEFAULT)[address] [place] [address], [place] [address] Parainfluenza 3 - Pcr Not detected Normal Not Detected [facility] Comment on above: Order Comment: Viral [...] acid assay. Performed By: #### I CRESP ####[facility] (DEFAULT)[address] [place] [address], [place] [address] Parainfluenza 4 - Pcr Not detected Normal Not Detected [facility] Comment on above: Order Comment: Viral [...] acid assay. Performed By: #### I CRESP ####[facility] (DEFAULT)[address] [place] [address], [place] [address] Rhinovirus/Enterovir us - PCR Not detected Normal Not Detected [facility] Comment on above: Order Comment: Viral [...] acid assay. Performed By: #### I CRESP ####[facility] (DEFAULT)[address] [place] [address] Rsv - Pcr Not detected Normal Not Detected [facility] Comment on above: Order Comment: Viral [...] acid assay. Performed By: #### I CRESP ####[facility] (DEFAULT)[address] [place] [address] SARS-CoV-2 (COVID-19) RNA ESTELITA+probe Ql (Unsp spec) Not detected Normal NOT DETECTED [facility] Comment on above: Order Comment: Viral [...] acid assay. Performed By: #### I CRESP ####[facility] (DEFAULT)[address] [place] [address] Portable XR Chest Viewson Radiology Study observation (narrative) [facility] Respiratory virus DNA+RNA NA A+probe Nom (Unsp spec)Ordered By: Dayami Harris on 08-28-2023 Adenovirus DNA ESTELITA+probe Nom (Unsp spec) Not detected Not Detected [facility] B. parapertussis DNA ESTELITA+probe Ql (Unsp spec) Not detected Not Detected [facility] B. pertussis DNA ESTELITA+probe Ql (Unsp spec) Not detected Not Detected [facility] C. pneumoniae DNA ESTELITA+probe Ql (Unsp spec) Not detected Not Detected [facility] FLUAV RNA ESTELITA+probe Ql (Unsp spec) Not detected Not Detected [facility] FLUBV RNA ESTELITA+probe Ql (Unsp spec) Not detected Not Detected [facility] HCoV 229E RNA ESTELITA+non-probe Ql (Nph) Not detected Not Detected [facility] HCoV HKU1 RNA ESTELITA+non-probe Ql (Nph) Not detected Not Detected [facility] HCoV NL63 RNA ESTELITA+non-probe Ql (Nph) Not detected Not Detected [facility] HCoV OC43 RNA ESTELITA+non-probe Ql (Nph) Not detected Not Detected [facility] hMPV A RNA ESTELITA+probe Ql (Unsp spec) Not detected Not Detected [facility] Interpretation and review of laboratory results Normal [facility] M. pneumoniae DNA ESTELITA+probe Ql (Unsp spec) Not detected Not Detected [facility] Parainfluenza virus 1 RNA ESTELITA+probe Ql (Unsp spec) Not detected Not Detected [facility] Parainfluenza virus 2 RNA ESTELITA+probe Ql (Unsp spec) Not detected Not Detected [facility] Parainfluenza virus 3 RNA ESTELITA+probe Ql (Unsp spec) Not detected Not Detected [facility] Parainfluenza virus 4 RNA ESTELITA+probe Ql (Unsp spec) Not detected Not Detected [facility] Rhinovirus+Enterovir us RNA ESTELITA+probe Ql (Unsp spec) Not detected Not Detected [facility] RSV RNA ESTELITA+probe Ql (Unsp spec) Not detected Not Detected [facility] SARS-CoV-2 (COVID-19) RNA ESTELITA+probe Ql (Unsp spec) Not detected NOT DETECTED [facility] ALBUMINon 04-28-2023 Albumin [Mass/Vol] 4.0 g/dL Normal 3.4-5.0 [facility] Comment on above: Performed By: #### C MP #### [facility] [address] [place] [address] Dr. Dwight Waters ALKALINE PHOSPHAon ALP [Catalytic activity/Vol] 106 U/L Normal 46-116 [facility] Comment on above: Performed By: #### F [id number] #### [facility] [address] [place] [address] Dr. Dwight Waters BILIRUBIN CONJUGATED (DIRECT )on 04-28-2023 BILI, CONJUGATED 0.3 mg/dL Critically high 0.0-0.2 [facility] Comment on above: Performed By: #### C MP #### [facility] [address] [place] [address] Dr. Dwight Waters BILIRUBIN TOTALon 04-28-2023 Bilirubin [Mass/Vol] 1.4 mg/dL Critically high 0.2-1.0 [facility] Comment on above: Performed By: #### C MP #### [facility] [address] [place] [address] Dr. Dwight Waters BUNon 04-28-2023 Urea nitrogen [Mass/Vol] 12.0 mg/dL Normal 7.0-18.0 [facility] Comment on above: Performed By: #### U RTPCR #### [facility] [address] [place] [address] Dr. Dwight Waters CALCIUMon 04-28-2023 Calcium [Mass/Vol] 9.3 mg/dL Normal 8.5-10.1 [facility] Comment on above: Performed By: #### U RTPCR #### [facility] [address] [place] [address] Dr. Dwight Waters CBC AUTO DIFFon 04-28-2023 BASO # 0.1 103/ul Normal 0.0-0.1 [facility] Comment on above: Performed By: #### C BC #### [facility] [address] [place] [address] Dr. Dwight Waters Basophils/100 WBC (Bld) 0.9 % Normal 0.2-2.0 [facility] Comment on above: Performed By: #### C BC #### [facility] [address] [place] [address] Dr. Dwight Waters EO # 0.2 103/ul Normal 0.0-0.7 [facility] Comment on above: Performed By: #### C BC #### [facility] [address] [place] [address] Dr. Dwight Waters Eosinophils/100 WBC (Bld) 3.8 % Normal 0.9-7.0 [facility] Comment on above: Performed By: #### C BC #### [facility] [address] [place] [address] Dr. Dwight Waters Erythrocyte distribution width (RBC) [Ratio] 12.5 % Normal 11.0-15.0 [facility] Comment on above: Performed By: #### C BC #### [facility] [address] [place] [address] Dr. Dwight Waters Hematocrit (Bld) [Volume fraction] 49.8 % Normal 42.0-54.0 [facility] Comment on above: Performed By: #### C BC #### [facility] [address] [place] [address] Dr. Dwight Waters Hemoglobin (Bld) [Mass/Vol] 16.4 g/dL Normal 14.0-18.0 [facility] Comment on above: Performed By: #### C BC #### [facility] [address] [place] [address] Dr. Dwight Waters IG # 0.01 10e3/ul Normal 0.00-0.03 [facility] Comment on above: Performed By: #### C BC #### [facility] [address] [place] [address] Dr. Dwight Waters IG % 0.2 % Normal 0.0-0.5 [facility] Comment on above: Performed By: #### C BC #### [facility] [address] [place] [address] Dr. Dwight Waters LYMPH # 2.1 103/ul Normal 1.2-3.8 [facility] Comment on above: Performed By: #### C BC #### [facility] [address] [place] [address] Dr. Dwight Waters Lymphocytes/100 WBC (Bld) 39.1 % Normal 20.5-60.0 [facility] Comment on above: Performed By: #### C BC #### [facility] [address] [place] [address] Dr. Dwight Waters MANUAL DIFF REQ NO Normal [facility] Comment on above: Performed By: #### C BC #### [facility] [address] [place] [address] Dr. Dwight Waters MCH (RBC) [Entitic mass] 28.6 pg Normal 25.9-34.0 [facility] Comment on above: Performed By: #### C BC #### [facility] [address] [place] [address] Dr. Dwight Waters MCHC (RBC) [Mass/Vol] 32.9 g/dL Normal 29.9-35.2 [facility] Comment on above: Performed By: #### C BC #### [facility] [address] [place] [address] Dr. Dwight Waters MCV (RBC) [Entitic vol] 86.9 fL Normal 80.0-94.0 [facility] Comment on above: Performed By: #### C BC #### [facility] [address] [place] [address] Dr. Dwight Waters MONO # 0.6 103/ul Normal 0.3-0.8 [facility] Comment on above: Performed By: #### C BC #### [facility] [address] [place] [address] Dr. Dwight Waters Monocytes/100 WBC (Bld) 10.6 % Normal 1.7-12.0 [facility] Comment on above: Performed By: #### C BC #### [facility] [address] [place] [address] Dr. Dwight Waters NEUT # 2.5 103/ul Normal 1.4-6.5 [facility] Comment on above: Performed By: #### C BC #### [facility] [address] [place] [address] Dr. Dwight Waters Neutrophils/100 WBC (Bld) 45.4 % Normal 43.0-75.0 [facility] Comment on above: Performed By: #### C BC #### [facility] [address] [place] [address] Dr. Dwight Waters Platelet mean volume (Bld) [Entitic vol] 9.3 fL Critically low 9.5-13.5 [facility] Comment on above: Performed By: #### C BC #### [facility] [address] [place] [address] Dr. Dwight Waters PLT 248 103/ul Normal 150-450 [facility] Comment on above: Performed By: #### C BC #### [facility] [address] [place] [address] Dr. Dwight Waters RBC 5.73 106/ul Normal 4.70-6.10 [facility] Comment on above: Performed By: #### C BC #### [facility] [address] [place] [address] Dr. Dwight Waters WBC 5.5 103/ul Normal 4.0-11.0 [facility] Comment on above: Performed By: #### C BC #### [facility] [address] [place] [address] Dr. Dwight Waters CHLORIDEon 04-28-2023 Chloride [Moles/Vol] 107 mmol/L Normal 98-107 [facility] Comment on above: Performed By: #### U RTPCR #### [facility] [address] [place] [address] Dr. Dwight Waters CO2on 04-28-2023 CO2 [Moles/Vol] 28.9 mmol/L Normal 21.0-32.0 [facility] Comment on above: Performed By: #### U RTPCR #### [facility] [address] [place] [address] Dr. Dwight Waters CREATININEon 04-28-2023 Creatinine [Mass/Vol] 1.17 mg/dL Normal 0.70-1.30 [facility] Comment on above: Performed By: #### U RTPCR #### [facility] [address] [place] [address] Dr. Dwight Waters EGFR-AF TURKS AND CAIC[place] ISLANDER >60 Normal >=60 [facility] Comment on above: Performed By: #### U RTPCR #### [facility] [address] [place] [address] Dr. Dwight Waters EGFR-NON AF TURKS AND CAICOS ISLANDER >60 Normal >=60 [facility] Comment on above: Performed By: #### U RTPCR #### [facility] [address] [place] [address] Dr. Dwight Waters GGTon 04-28-2023 Gamma glutamyl transferase [Catalytic activity/Vol] 27 U/L Normal 15-85 [facility] Comment on above: Performed By: #### U RTPCR #### [facility] [address] [place] [address] Dr. Dwight Waters GLUCOSE BLOODon 04-28-2023 Glucose [Mass/Vol] 110 mg/dL Critically high 74-106 [facility] Comment on above: Performed By: #### U RTPCR #### [facility] [address] [place] [address] Dr. Dwight Waters MAGNESIUMon 04-28-2023 Magnesium [Mass/Vol] 1.7 mg/dL Critically low 1.8-2.4 [facility] Comment on above: Performed By: #### U RTPCR #### [facility] [address] [place] [address] Dr. Dwight Waters NAon 04-28-2023 Sodium [Moles/Vol] 144 mmol/L Normal 136-145 [facility] Comment on above: Performed By: #### U RTPCR #### [facility] [address] [place] [address] Dr. Dwight Waters PHOSPHORUSon 04-28-2023 Phosphate [Mass/Vol] 3.2 mg/dL Normal 2.6-4.7 [facility] Comment on above: Performed By: #### U RTPCR #### [facility] [address] [place] [address] Dr. Dwight Waters POTASSIUMon 04-28-2023 Potassium [Moles/Vol] 4.0 mmol/L Normal 3.5-5.1 [facility] Comment on above: Performed By: #### U RTPCR #### [facility] [address] [place] [address] Dr. Dwight OLVERAOTon 04-28-2023 AST [Catalytic activity/Vol] 25 U/L Normal 15-37 [facility] Comment on above: Performed By: #### C MP #### [facility] [address] [place] [address] Dr. Dwight Waters SGPTon 04-28-2023 ALT [Catalytic activity/Vol] 40 U/L Normal 16-63 [facility] Comment on above: Performed By: #### C MP #### [facility] [address] [place] [address] Dr. Dwight Waters URINE T PROTEIN CREAT RATIOo 04-28-2023 Protein (U) [Mass/Vol] 10.1 mg/dL Normal <=12.0 [facility] Comment on above: Performed By: #### U RTPCR #### [facility] [address] [place] [address] Dr. Dwight Waters UR PROT CREAT RAT 0.14 Normal [facility] Comment on above: Performed By: #### U RTPCR #### [facility] [address] [place] [address] Dr. Dwight Waters URINE CREAT 74.40 mg/dL Normal 20.00-300.00 [facility] Comment on above: Performed By: #### U RTPCR #### [facility] [address] [place] [address] Dr. Dwight Waters BK VIRUS PCR QUANTon 023 BKV DNA QUANT PCR PLASMA Negative Normal Negative [facility] Comment on above: Result Comment: No B K DNA detected. . The linear range of the assay is 22 - 100,000,000 IU/mL. Performed By: #### B KVIRUS #### [facility] [address] [place] [address] Dr. Dwight Waters Log10 BKV DNA Plasma Normal [facility] Comment on above: Performed By: #### B KVIRUS #### [facility] [address] [place] [address] Dr. Dwight Waters FK506 (TACROLIMUS) WHOLE BLO ODon 03-04-2023 Tacrolimus (FK506), Blood 5.9 ng/mL Normal 2.0-20.0 [facility] Comment on above: Result Comment: Trou gh (immediately following transplant) 15.0 . Trough (steady state, 2 weeks or more after transplant): 3.0 - 8.0 . Performed by LC-MS/MS technology. Performed By: #### C MP #### [facility] [address] [place] [address] Dr. Dwight Waters ALBUMINon 03-02-2023 Albumin [Mass/Vol] 3.9 g/dL Normal 3.4-5.0 [facility] Comment on above: Performed By: #### U RTPCR #### [facility] [address] [place] [address] Dr. Dwight Waters ALKALINE PHOSPHAon ALP [Catalytic activity/Vol] 105 U/L Normal 46-116 [facility] Comment on above: Performed By: #### U RTPCR #### [facility] [address] [place] [address] Dr. Dwight Waters BILIRUBIN CONJUGATED (DIRECT )on 03-02-2023 BILI, CONJUGATED 0.2 mg/dL Normal 0.0-0.2 [facility] Comment on above: Performed By: #### U RTPCR #### [facility] [address] [place] [address] Dr. Dwight Waters BILIRUBIN TOTALon 03-02-2023 Bilirubin [Mass/Vol] 0.9 mg/dL Normal 0.2-1.0 [facility] Comment on above: Performed By: #### U RTPCR #### [facility] [address] [place] [address] Dr. Dwight Waters CBC AUTO DIFFon 03-02-2023 BASO # 0.1 103/ul Normal 0.0-0.1 [facility] Comment on above: Performed By: #### C BC #### [facility] [address] [place] [address] Dr. Dwight Waters Basophils/100 WBC (Bld) 0.9 % Normal 0.2-2.0 [facility] Comment on above: Performed By: #### C BC #### [facility] [address] [place] [address] Dr. Dwight Waters EO # 0.2 103/ul Normal 0.0-0.7 [facility] Comment on above: Performed By: #### C BC #### [facility] [address] [place] [address] Dr. Dwight Waters Eosinophils/100 WBC (Bld) 3.5 % Normal 0.9-7.0 [facility] Comment on above: Performed By: #### C BC #### [facility] [address] [place] [address] Dr. Dwight Waters Erythrocyte distribution width (RBC) [Ratio] 12.7 % Normal 11.0-15.0 [facility] Comment on above: Performed By: #### C BC #### [facility] [address] [place] [address] Dr. Dwight Waters Hematocrit (Bld) [Volume fraction] 48.2 % Normal 42.0-54.0 [facility] Comment on above: Performed By: #### C BC #### [facility] [address] [place] [address] Dr. Dwight Waters Hemoglobin (Bld) [Mass/Vol] 15.9 g/dL Normal 14.0-18.0 [facility] Comment on above: Performed By: #### C BC #### [facility] [address] [place] [address] Dr. Dwight Waters IG # 0.01 10e3/ul Normal 0.00-0.03 [facility] Comment on above: Performed By: #### C BC #### [facility] [address] [place] [address] Dr. Dwight Waters IG % 0.2 % Normal 0.0-0.5 [facility] Comment on above: Performed By: #### C BC #### [facility] [address] [place] [address] Dr. Dwight Waters LYMPH # 2.1 103/ul Normal 1.2-3.8 [facility] Comment on above: Performed By: #### C BC #### [facility] [address] [place] [address] Dr. Dwight Waters Lymphocytes/100 WBC (Bld) 37.4 % Normal 20.5-60.0 [facility] Comment on above: Performed By: #### C BC #### [facility] [address] [place] [address] Dr. Dwight Waters MANUAL DIFF REQ NO Normal [facility] Comment on above: Performed By: #### C BC #### [facility] [address] [place] [address] Dr. Dwight Waters MCH (RBC) [Entitic mass] 28.3 pg Normal 25.9-34.0 [facility] Comment on above: Performed By: #### C BC #### [facility] [address] [place] [address] Dr. Dwight Waters MCHC (RBC) [Mass/Vol] 33.0 g/dL Normal 29.9-35.2 [facility] Comment on above: Performed By: #### C BC #### [facility] [address] [place] [address] Dr. Dwight Waters MCV (RBC) [Entitic vol] 85.8 fL Normal 80.0-94.0 [facility] Comment on above: Performed By: #### C BC #### [facility] [address] [place] [address] Dr. Dwight Waters MONO # 0.6 103/ul Normal 0.3-0.8 [facility] Comment on above: Performed By: #### C BC #### [facility] [address] [place] [address] Dr. Dwight Waters Monocytes/100 WBC (Bld) 10.2 % Normal 1.7-12.0 [facility] Comment on above: Performed By: #### C BC #### [facility] [address] [place] [address] Dr. Dwight Waters NEUT # 2.7 103/ul Normal 1.4-6.5 [facility] Comment on above: Performed By: #### C BC #### [facility] [address] [address] [address] Dwight Waters Neutrophils/100 WBC (Bld) 47.8 % Normal 43.0-75.0 [facility] Comment on above: Performed By: #### C BC #### [facility] [address] [place] [address] Dr. Dwight Waters Platelet mean volume (Bld) [Entitic vol] 9.3 fL Critically low 9.5-13.5 [facility] Comment on above: Performed By: #### C BC #### [facility] [address] [place] [address] Dr. Dwight Waters PLT 241 103/ul Normal 150-450 [facility] Comment on above: Performed By: #### C BC #### [facility] [address] [place] [address] Dr. Dwight Waters RBC 5.62 106/ul Normal 4.70-6.10 [facility] Comment on above: Performed By: #### C BC #### [facility] [address] [place] [address] Dr. Dwight Waters WBC 5.7 103/ul Normal 4.0-11.0 [facility] Comment on above: Performed By: #### C BC #### [facility] [address] [place] [address] Dr. wDight Waters GGTon 03-02-2023 Gamma glutamyl transferase [Catalytic activity/Vol] 25 U/L Normal 15-85 [facility] Comment on above: Performed By: #### U RTPCR #### [facility] [address] [place] [address] Dr. Dwight Waters MAGNESIUMon 03-02-2023 Magnesium [Mass/Vol] 1.6 mg/dL Critically low 1.8-2.4 [facility] Comment on above: Performed By: #### U RTPCR #### [facility] [address] [place] [address] Dr. Dwight Waters PHOSPHORUSon 03-02-2023 Phosphate [Mass/Vol] 3.6 mg/dL Normal 2.6-4.7 [facility] Comment on above: Performed By: #### U RTPCR #### [facility] [address] [address] [address] Dwight Waters PROF CHEM 8 (BAS METB)on Anion gap [Moles/Vol] 9.4 mmol/L Normal [facility] Comment on above: Performed By: #### U RTPCR #### [facility] [address] [place] [address] Dr. Dwight Waters Calcium [Mass/Vol] 9.3 mg/dL Normal 8.5-10.1 [facility] Comment on above: Performed By: #### U RTPCR #### [facility] [address] [place] [address] Dr. Dwight Waters Chloride [Moles/Vol] 108 mmol/L Critically high 98-107 [facility] Comment on above: Performed By: #### U RTPCR #### [facility] [address] [place] [address] Dr. Dwight Waters CO2 [Moles/Vol] 27.2 mmol/L Normal 21.0-32.0 [facility] Comment on above: Performed By: #### U RTPCR #### [facility] [address] [place] [address] Dr. Dwight Waters Creatinine [Mass/Vol] 1.12 mg/dL Normal 0.70-1.30 [facility] Comment on above: Performed By: #### U RTPCR #### [facility] [address] [place] [address] Dr. Dwight Waters EGFR-AF TURKS AND CAICOS ISLANDER >60 Normal >=60 [facility] Comment on above: Performed By: #### U RTPCR #### [facility] [address] [place] [address] Dr. Dwight Waters EGFR-NON AF TURKS AND CAICOS ISLANDER >60 Normal >=60 [facility] Comment on above: Performed By: #### U RTPCR #### [facility] [address] [place] [address] Dr. Dwight Waters Glucose [Mass/Vol] 113 mg/dL Critically high 74-106 [facility] Comment on above: Performed By: #### U RTPCR #### [facility] [address] [address] [address] Dwight Waters Potassium [Moles/Vol] 3.6 mmol/L Normal 3.5-5.1 [facility] Comment on above: Performed By: #### U RTPCR #### [facility] [address] [place] [address] Dr. Dwight Waters Sodium [Moles/Vol] 141 mmol/L Normal 136-145 [facility] Comment on above: Performed By: #### U RTPCR #### [facility] [address] [place] [address] Dr. Dwight Waters Urea nitrogen [Mass/Vol] 14.0 mg/dL Normal 7.0-18.0 [facility] Comment on above: Performed By: #### U RTPCR #### [facility] [address] [place] [address] Dr. Dwight Waters Urea nitrogen/Creatinine [Mass ratio] 12.5 mg/mg Normal [facility] Comment on above: Performed By: #### U RTPCR #### [facility] [address] [place] [address] Dr. Dwight Waters SGOTon 03-02-2023 AST [Catalytic activity/Vol] 20 U/L Normal 15-37 [facility] Comment on above: Performed By: #### U RTPCR #### [facility] [address] [place] [address] Dr. Dwight Waters SGPTon 03-02-2023 ALT [Catalytic activity/Vol] 30 U/L Normal 16-63 [facility] Comment on above: Performed By: #### U RTPCR #### [facility] [address] [place] [address] Dr. Dwight Waters URINE T PROTEIN CREAT RATIOo n 03-02-2023 Protein (U) [Mass/Vol] 10.3 mg/dL Normal <=12.0 [facility] Comment on above: Performed By: #### U RTPCR #### [facility] [address] [place] [address] Dr. Dwight Waters UR PROT CREAT RAT 0.15 Normal [facility] Comment on above: Performed By: #### U RTPCR #### [facility] [address] [place] [address] Dr. Dwight Waters URINE CREAT 68.96 mg/dL Normal 20.00-300.00 [facility] Comment on above: Performed By: #### U RTPCR #### [facility] [address] [place] [address] Dr. Dwight Waters BK VIRUS PCR QUANTon 023 BKV DNA QUANT PCR PLASMA Negative Normal Negative [facility] Comment on above: Result Comment: No B K DNA detected. . The linear range of the assay is 22 - 100,000,000 IU/mL. Performed By: #### C MP #### [facility] [address] [place] [address] Dr. Dwight Waters Log10 BKV DNA Plasma Normal [facility] Comment on above: Performed By: #### C MP #### [facility] [address] [place] [address] Dr. Dwight Waters FK506 (TACROLIMUS) WHOLE BLO ODon 12-31-2022 Tacrolimus (FK506), Blood 5.6 ng/mL Normal 2.0-20.0 [facility] Comment on above: Result Comment: Trou gh (immediately following transplant) 15.0 . Trough (steady state, 2 weeks or more after transplant): 3.0 - 8.0 . Performed by LC-MS/MS technology. Performed By: #### C MP #### [facility] [address] [place] [address] Dr. Dwight Waters ALKALINE PHOSPHAon ALP [Catalytic activity/Vol] 96 U/L Normal 46-116 [facility] Comment on above: Performed By: #### C BC #### [facility] [address] [place] [address] Dr. Dwight Waters BILIRUBIN CONJUGATED (DIRECT )on 12-29-2022 BILI, CONJUGATED 0.3 mg/dL Critically high 0.0-0.2 [facility] Comment on above: Performed By: #### C BC #### [facility] [address] [place] [address] Dr. Dwight Waters BILIRUBIN TOTALon 12-29-2022 Bilirubin [Mass/Vol] 1.1 mg/dL Critically high 0.2-1.0 [facility] Comment on above: Performed By: #### C BC #### [facility] [address] [place] [address] Dr. Dwight Waters CBC AUTO DIFFon 12-29-2022 BASO # 0.1 103/ul Normal 0.0-0.1 [facility] Comment on above: Performed By: #### C MP #### [facility] [address] [place] [address] Dr. Dwight Waters Basophils/100 WBC (Bld) 0.8 % Normal 0.2-2.0 [facility] Comment on above: Performed By: #### C MP #### [facility] [address] [place] [address] Dr. Dwight Waters EO # 0.2 103/ul Normal 0.0-0.7 [facility] Comment on above: Performed By: #### C MP #### [facility] [address] [place] [address] Dr. Dwight Waters Eosinophils/100 WBC (Bld) 3.0 % Normal 0.9-7.0 [facility] Comment on above: Performed By: #### C MP #### [facility] [address] [place] [address] Dr. Dwight Waters Erythrocyte distribution width (RBC) [Ratio] 12.9 % Normal 11.0-15.0 [facility] Comment on above: Performed By: #### C MP #### [facility] [address] [place] [address] Dr. Dwight Waters Hematocrit (Bld) [Volume fraction] 46.9 % Normal 42.0-54.0 [facility] Comment on above: Performed By: #### C MP #### [facility] [address] [place] [address] Dr. Dwight Waters Hemoglobin (Bld) [Mass/Vol] 16.1 g/dL Normal 14.0-18.0 [facility] Comment on above: Performed By: #### C MP #### [facility] [address] [place] [address] Dr. Dwight Waters IG # 0.01 10e3/ul Normal 0.00-0.03 [facility] Comment on above: Performed By: #### C MP #### [facility] [address] [place] [address] Dr. Dwight Waters IG % 0.2 % Normal 0.0-0.5 [facility] Comment on above: Performed By: #### C MP #### [facility] [address] [place] [address] Dr. Dwight Waters LYMPH # 1.8 103/ul Normal 1.2-3.8 [facility] Comment on above: Performed By: #### C MP #### [facility] [address] [place] [address] Dr. Dwight Waters Lymphocytes/100 WBC (Bld) 27.9 % Normal 20.5-60.0 [facility] Comment on above: Performed By: #### C MP #### [facility] [address] [place] [address] Dr. Dwight Waters MANUAL DIFF REQ NO Normal [facility] Comment on above: Performed By: #### C MP #### [facility] [address] [place] [address] Dr. Dwight Waters MCH (RBC) [Entitic mass] 28.5 pg Normal 25.9-34.0 [facility] Comment on above: Performed By: #### C MP #### [facility] [address] [place] [address] Dr. Dwight Waters MCHC (RBC) [Mass/Vol] 34.3 g/dL Normal 29.9-35.2 [facility] Comment on above: Performed By: #### C MP #### [facility] [address] [place] [address] Dr. Dwight Waters MCV (RBC) [Entitic vol] 83.2 fL Normal 80.0-94.0 [facility] Comment on above: Performed By: #### C MP #### [facility] [address] [place] [address] Dr. Dwight Waters MONO # 0.5 103/ul Normal 0.3-0.8 [facility] Comment on above: Performed By: #### C MP #### [facility] [address] [address] [address] Dwight Waters Monocytes/100 WBC (Bld) 8.1 % Normal 1.7-12.0 [facility] Comment on above: Performed By: #### C MP #### [facility] [address] [place] [address] Dr. Dwight Waters NEUT # 3.8 103/ul Normal 1.4-6.5 [facility] Comment on above: Performed By: #### C MP #### [facility] [address] [place] [address] Dr. Dwight Waters Neutrophils/100 WBC (Bld) 60.0 % Normal 43.0-75.0 [facility] Comment on above: Performed By: #### C MP #### [facility] [address] [place] [address] Dr. Dwight Waters Platelet mean volume (Bld) [Entitic vol] 9.2 fL Critically low 9.5-13.5 [facility] Comment on above: Performed By: #### C MP #### [facility] [address] [place] [address] Dr. Dwight Waters PLT 225 103/ul Normal 150-450 [facility] Comment on above: Performed By: #### C MP #### [facility] [address] [place] [address] Dr. Dwight Waters RBC 5.64 106/ul Normal 4.70-6.10 [facility] Comment on above: Performed By: #### C MP #### [facility] [address] [place] [address] Dr. Dwight Waters WBC 6.3 103/ul Normal 4.0-11.0 [facility] Comment on above: Performed By: #### C MP #### [facility] [address] [place] [address] Dr. Dwight Waters GGTon 12-29-2022 Gamma glutamyl transferase [Catalytic activity/Vol] 24 U/L Normal 15-85 [facility] Comment on above: Performed By: #### C MP #### [facility] [address] [address] [address] Dwight Waters LIPID PROFILEon 12-29-2022 CHOL-HDL RATIO NORM SEE BELOW Normal [facility] Comment on above: Result Comment: 3.3 - 4.4 LOW RISK 4.4 - 7.1 AVERAGE RISK 7.1 - 11.0 MODERATE RISK >11.0 HIGH RISK Performed By: #### U RTPCR #### [facility] [address] [address] [address] Dwight Waters Cholesterol [Mass/Vol] 87 mg/dL Normal <=200 [facility] Comment on above: Performed By: #### U RTPCR #### [facility] [address] [address] [address] Dwight Waters Cholesterol in HDL [Mass/Vol] 44 mg/dL Normal 40-60 [facility] Comment on above: Performed By: #### U RTPCR #### [facility] [address] [address] [address] Dwight Waters Cholesterol in LDL [Mass/Vol] 33.0 mg/dL Normal [facility] Comment on above: Performed By: #### U RTPCR #### [facility] [address] [address] [address] Dwight Waters Cholesterol.total/Ch olesterol in HDL [Mass ratio] 2.0 {ratio} Normal [facility] Comment on above: Performed By: #### U RTPCR #### [facility] [address] [address] [address] Dwight Waters HDL NORMAL > or = 60 mg/dl - LO W CARDIOVASCULAR RISK <40 mg/dl - HIGH CARDIOVASCULAR RISK Normal [facility] Comment on above: Performed By: #### U RTPCR #### [facility] [address] [address] [address] Dwight Waters LDL CALC NORMAL SEE BELOW Normal [facility] Comment on above: Result Comment: <100 mg/dl OPTIMAL 100 - 129 mg/dl NEAR OR ABOVE OPTIMAL 130 - 159 mg/dl BORDERLINE HIGH 160 - 189 mg/dl HIGH >190 mg/dl VERY HIGH Performed By: #### U RTPCR #### [facility] [address] [place] [address] Dr. Dwight Waters Triglyceride [Mass/Vol] 50 mg/dL Normal <=150 [facility] Comment on above: Performed By: #### U RTPCR #### [facility] [address] [place] [address] Dr. Dwight Waters VLDL CALC 10.0 mg/dL Normal [facility] Comment on above: Performed By: #### U RTPCR #### [facility] [address] [place] [address] Dr. Dwight Waters MAGNESIUMon 12-29-2022 Magnesium [Mass/Vol] 1.6 mg/dL Critically low 1.8-2.4 [facility] Comment on above: Performed By: #### C BC #### [facility] [address] [place] [address] Dr. Dwight Waters RENAL FUNCTION PANELon 12-29 Albumin [Mass/Vol] 3.9 g/dL Normal 3.4-5.0 [facility] Comment on above: Performed By: #### C BC #### [facility] [address] [place] [address] Dr. Dwight Waters Calcium [Mass/Vol] 9.2 mg/dL Normal 8.5-10.1 [facility] Comment on above: Performed By: #### C BC #### [facility] [address] [place] [address] Dr. Dwight Waters Chloride [Moles/Vol] 109 mmol/L Critically high 98-107 [facility] Comment on above: Performed By: #### C BC #### [facility] [address] [place] [address] Dr. Dwight Waters CO2 [Moles/Vol] 27.0 mmol/L Normal 21.0-32.0 [facility] Comment on above: Performed By: #### C BC #### [facility] [address] [place] [address] Dr. Dwight Waters Creatinine [Mass/Vol] 1.02 mg/dL Normal 0.70-1.30 [facility] Comment on above: Performed By: #### C BC #### [facility] [address] [place] [address] Dr. Dwight Waters EGFR-AF TURKS AND CAICOS ISLANDER >60 Normal >=60 [facility] Comment on above: Performed By: #### C BC #### [facility] [address] [place] [address] Dr. Dwight Waters EGFR-NON AF TURKS AND CAICOS ISLANDER >60 Normal >=60 [facility] Comment on above: Performed By: #### C BC #### [facility] [address] [place] [address] Dr. Dwight Waters Glucose [Mass/Vol] 117 mg/dL Critically high 74-106 [facility] Comment on above: Performed By: #### C BC #### [facility] [address] [place] [address] Dr. Dwight Waters Phosphate [Mass/Vol] 3.2 mg/dL Normal 2.6-4.7 [facility] Comment on above: Performed By: #### C BC #### [facility] [address] [place] [address] Dr. Dwight Waters Potassium [Moles/Vol] 4.1 mmol/L Normal 3.5-5.1 [facility] Comment on above: Performed By: #### C BC #### [facility] [address] [place] [address] Dr. Dwight Waters Sodium [Moles/Vol] 144 mmol/L Normal 136-145 [facility] Comment on above: Performed By: #### C BC #### [facility] [address] [place] [address] Dr. Dwight Waters Urea nitrogen [Mass/Vol] 13.0 mg/dL Normal 7.0-18.0 [facility] Comment on above: Performed By: #### C BC #### [facility] [address] [place] [address] Dr. Dwight Waters SGOTon 12-29-2022 AST [Catalytic activity/Vol] 21 U/L Normal 15-37 [facility] Comment on above: Performed By: #### C BC #### [facility] [address] [place] [address] Dr. Dwight Waters SGPTon 12-29-2022 ALT [Catalytic activity/Vol] 32 U/L Normal 16-63 [facility] Comment on above: Performed By: #### C BC #### [facility] [address] [place] [address] Dr. Dwight Waters URINE T PROTEIN CREAT RATIOo n 12-29-2022 Protein (U) [Mass/Vol] 14.3 mg/dL Critically high <=12.0 [facility] Comment on above: Performed By: #### U RTPCR #### [facility] [address] [place] [address] Dr. Dwight Waters UR PROT CREAT RAT 0.17 Normal [facility] Comment on above: Performed By: #### U RTPCR #### [facility] [address] [place] [address] Dr. Dwight Waters URINE CREAT 86.58 mg/dL Normal 20.00-300.00 [facility] Comment on above: Performed By: #### U RTPCR #### [facility] [address] [place] [address] Dr. Dwight Waters FK506 (TACROLIMUS) WHOLE BLO ODon 11-06-2022 Tacrolimus (FK506), Blood 4.9 ng/mL Normal 2.0-20.0 [facility] Comment on above: Result Comment: Trou gh (immediately following transplant) 15.0 . Trough (steady state, 2 weeks or more after transplant): 3.0 - 8.0 . Performed by LC-MS/MS technology. Performed By: #### U RTPCR #### [facility] [address] [place] [address] Dr. Dwight Waters ALKALINE PHOSPHAon 2 ALP [Catalytic activity/Vol] 86 U/L Normal 46-116 [facility] Comment on above: Performed By: #### U RTPCR #### [facility] [address] [place] [address] Dr. Dwight Waters BILIRUBIN CONJUGATED (DIRECT )on 11-04-2022 BILI, CONJUGATED 0.2 mg/dL Normal 0.0-0.2 [facility] Comment on above: Performed By: #### U RTPCR #### [facility] [address] [place] [address] Dr. Dwight Waters BILIRUBIN TOTALon 11-04-2022 Bilirubin [Mass/Vol] 0.8 mg/dL Normal 0.2-1.0 [facility] Comment on above: Performed By: #### U RTPCR #### [facility] [address] [place] [address] Dr. Dwight Waters CBC AUTO DIFFon 11-04-2022 BASO # 0.1 103/ul Normal 0.0-0.1 [facility] Comment on above: Performed By: #### U RTPCR #### [facility] [address] [place] [address] Dr. Dwight Waters Basophils/100 WBC (Bld) 0.9 % Normal 0.2-2.0 [facility] Comment on above: Performed By: #### U RTPCR #### [facility] [address] [place] [address] Dr. Dwight Waters EO # 0.2 103/ul Normal 0.0-0.7 [facility] Comment on above: Performed By: #### U RTPCR #### [facility] [address] [place] [address] Dr. Dwight Waters Eosinophils/100 WBC (Bld) 3.7 % Normal 0.9-7.0 [facility] Comment on above: Performed By: #### U RTPCR #### [facility] [address] [place] [address] Dr. Dwight Waters Erythrocyte distribution width (RBC) [Ratio] 12.9 % Normal 11.0-15.0 [facility] Comment on above: Performed By: #### U RTPCR #### [facility] [address] [place] [address] Dr. Dwight Waters Hematocrit (Bld) [Volume fraction] 48.3 % Normal 42.0-54.0 [facility] Comment on above: Performed By: #### U RTPCR #### [facility] [address] [place] [address] Dr. Dwight Waters Hemoglobin (Bld) [Mass/Vol] 15.6 g/dL Normal 14.0-18.0 [facility] Comment on above: Performed By: #### U RTPCR #### [facility] [address] [place] [address] Dr. Dwight Waters IG # 0.01 10e3/ul Normal 0.00-0.03 [facility] Comment on above: Performed By: #### U RTPCR #### [facility] [address] [place] [address] Dr. Dwight Waters IG % 0.2 % Normal 0.0-0.5 [facility] Comment on above: Performed By: #### U RTPCR #### [facility] [address] [place] [address] Dr. Dwight Waters LYMPH # 1.9 103/ul Normal 1.2-3.8 [facility] Comment on above: Performed By: #### U RTPCR #### [facility] [address] [place] [address] Dr. Dwight Waters Lymphocytes/100 WBC (Bld) 33.0 % Normal 20.5-60.0 [facility] Comment on above: Performed By: #### U RTPCR #### [facility] [address] [place] [address] Dr. Dwight Waters MANUAL DIFF REQ NO Normal [facility] Comment on above: Performed By: #### U RTPCR #### [facility] [address] [place] [address] Dr. Dwight Waters MCH (RBC) [Entitic mass] 27.6 pg Normal 25.9-34.0 [facility] Comment on above: Performed By: #### U RTPCR #### [facility] [address] [place] [address] Dr. Dwight Waters MCHC (RBC) [Mass/Vol] 32.3 g/dL Normal 29.9-35.2 [facility] Comment on above: Performed By: #### U RTPCR #### [facility] [address] [address] [address] Dwight Waters MCV (RBC) [Entitic vol] 85.5 fL Normal 80.0-94.0 [facility] Comment on above: Performed By: #### U RTPCR #### [facility] [address] [place] [address] Dr. Dwight Waters MONO # 0.5 103/ul Normal 0.3-0.8 [facility] Comment on above: Performed By: #### U RTPCR #### [facility] [address] [place] [address] Dr. Dwight Waters Monocytes/100 WBC (Bld) 8.8 % Normal 1.7-12.0 [facility] Comment on above: Performed By: #### U RTPCR #### [facility] [address] [place] [address] Dr. Dwight Waters NEUT # 3.1 103/ul Normal 1.4-6.5 [facility] Comment on above: Performed By: #### U RTPCR #### [facility] [address] [place] [address] Dr. Dwight Waters Neutrophils/100 WBC (Bld) 53.4 % Normal 43.0-75.0 [facility] Comment on above: Performed By: #### U RTPCR #### [facility] [address] [place] [address] Dr. Dwight Waters Platelet mean volume (Bld) [Entitic vol] 9.2 fL Critically low 9.5-13.5 [facility] Comment on above: Performed By: #### U RTPCR #### [facility] [address] [place] [address] Dr. Dwight Waters PLT 255 103/ul Normal 150-450 [facility] Comment on above: Performed By: #### U RTPCR #### [facility] [address] [place] [address] Dr. Dwight Waters RBC 5.65 106/ul Normal 4.70-6.10 [facility] Comment on above: Performed By: #### U RTPCR #### [facility] [address] [place] [address] Dr. Dwight Waters WBC 5.7 103/ul Normal 4.0-11.0 [facility] Comment on above: Performed By: #### U RTPCR #### [facility] [address] [place] [address] Dr. Dwight Waters GGTon 11-04-2022 Gamma glutamyl transferase [Catalytic activity/Vol] 22 U/L Normal 15-85 [facility] Comment on above: Performed By: #### U RTPCR #### [facility] [address] [place] [address] Dr. Dwight Waters MAGNESIUMon 11-04-2022 Magnesium [Mass/Vol] 1.8 mg/dL Normal 1.8-2.4 [facility] Comment on above: Performed By: #### U RTPCR #### [facility] [address] [place] [address] Dr. Dwight Waters RENAL FUNCTION PANELon 11-04 Albumin [Mass/Vol] 3.8 g/dL Normal 3.4-5.0 [facility] Comment on above: Performed By: #### U RTPCR #### [facility] [address] [place] [address] Dr. Dwight Waters Calcium [Mass/Vol] 9.3 mg/dL Normal 8.5-10.1 [facility] Comment on above: Performed By: #### U RTPCR #### [facility] [address] [place] [address] Dr. Dwight Waters Chloride [Moles/Vol] 107 mmol/L Normal 98-107 [facility] Comment on above: Performed By: #### U RTPCR #### [facility] [address] [place] [address] Dr. Dwight Waters CO2 [Moles/Vol] 29.2 mmol/L Normal 21.0-32.0 [facility] Comment on above: Performed By: #### U RTPCR #### [facility] [address] [place] [address] Dr. Dwight Waters Creatinine [Mass/Vol] 1.07 mg/dL Normal 0.70-1.30 [facility] Comment on above: Performed By: #### U RTPCR #### [facility] [address] [place] [address] Dr. Dwight Waters EGFR-AF TURKS AND CAICOS ISLANDER >60 Normal >=60 [facility] Comment on above: Performed By: #### U RTPCR #### [facility] [address] [place] [address] Dr. Dwight Waters EGFR-NON AF TURKS AND CAICOS ISLANDER >60 Normal >=60 [facility] Comment on above: Performed By: #### U RTPCR #### [facility] [address] [place] [address] Dr. Dwight Waters Glucose [Mass/Vol] 106 mg/dL Normal 74-106 [facility] Comment on above: Performed By: #### U RTPCR #### [facility] [address] [place] [address] Dr. Dwight Waters Phosphate [Mass/Vol] 2.8 mg/dL Normal 2.6-4.7 [facility] Comment on above: Performed By: #### U RTPCR #### [facility] [address] [place] [address] Dr. Dwight Waters Potassium [Moles/Vol] 4.1 mmol/L Normal 3.5-5.1 [facility] Comment on above: Performed By: #### U RTPCR #### [facility] [address] [place] [address] Dr. Dwight Waters Sodium [Moles/Vol] 143 mmol/L Normal 136-145 [facility] Comment on above: Performed By: #### U RTPCR #### [facility] [address] [place] [address] Dr. Dwight Waters Urea nitrogen [Mass/Vol] 12.0 mg/dL Normal 7.0-18.0 [facility] Comment on above: Performed By: #### U RTPCR #### [facility] [address] [place] [address] Dr. Dwight Waters SGAlicia 11-04-2022 AST [Catalytic activity/Vol] 19 U/L Normal 15-37 [facility] Comment on above: Performed By: #### U RTPCR #### [facility] [address] [place] [address] Dr. Dwight Waters SGPTon 11-04-2022 ALT [Catalytic activity/Vol] 28 U/L Normal 16-63 [facility] Comment on above: Performed By: #### U RTPCR #### [facility] [address] [place] [address] Dr. Dwight Waters URINE T PROTEIN CREAT RATIOo n 11-04-2022 Protein (U) [Mass/Vol] 10.7 mg/dL Normal <=12.0 [facility] Comment on above: Performed By: #### U RTPCR #### [facility] [address] [place] [address] Dr. Dwight Waters UR PROT CREAT RAT 0.13 Normal [facility] Comment on above: Performed By: #### U RTPCR #### [facility] [address] [place] [address] Dr. Dwight Waters URINE CREAT 84.50 mg/dL Normal 20.00-300.00 [facility] Comment on above: Performed By: #### U RTPCR #### [facility] [address] [place] [address] Dr. Dwight Waters FK506 (TACROLIMUS) WHOLE BLO ODon 09-18-2022 Tacrolimus (FK506), Blood 4.6 ng/mL Normal 2.0-20.0 [facility] Comment on above: Result Comment: Trou gh (immediately following transplant) 15.0 . Trough (steady state, 2 weeks or more after transplant): 3.0 - 8.0 . Performed by LC-MS/MS technology. Performed By: #### U RTPCR #### [facility] [address] [place] [address] Dr. Dwight Waters BK VIRUS PCR QUANTon 022 BKV DNA QUANT PCR PLASMA Negative Normal Negative [facility] Comment on above: Result Comment: No B K DNA detected. . The linear range of the assay is 22 - 100,000,000 IU/mL. Performed By: #### U RTPCR #### [facility] [address] [place] [address] Dr. Dwight Waters Log10 BKV DNA Plasma Normal [facility] Comment on above: Performed By: #### U RTPCR #### [facility] [address] [place] [address] Dr. Dwight Waters ALKALINE PHOSPHAon ALP [Catalytic activity/Vol] 92 U/L Normal 46-116 [facility] Comment on above: Performed By: #### U RTPCR #### [facility] [address] [place] [address] Dr. Dwight Waters BILIRUBIN CONJUGATED (DIRECT )on 09-15-2022 BILI, CONJUGATED 0.3 mg/dL Critically high 0.0-0.2 [facility] Comment on above: Performed By: #### U RTPCR #### [facility] [address] [place] [address] Dr. Dwight Waters BILIRUBIN TOTALon 09-15-2022 Bilirubin [Mass/Vol] 1.1 mg/dL Critically high 0.2-1.0 [facility] Comment on above: Performed By: #### U RTPCR #### [facility] [address] [place] [address] Dr. Dwight Waters CBC AUTO DIFFon 09-15-2022 BASO # 0.1 103/ul Normal 0.0-0.1 [facility] Comment on above: Performed By: #### C BC #### [facility] [address] [place] [address] Dr. Dwight Waters Basophils/100 WBC (Bld) 0.8 % Normal 0.2-2.0 [facility] Comment on above: Performed By: #### C BC #### [facility] [address] [place] [address] Dr. Dwight Waters EO # 0.2 103/ul Normal 0.0-0.7 [facility] Comment on above: Performed By: #### C BC #### [facility] [address] [place] [address] Dr. Dwight Waters Eosinophils/100 WBC (Bld) 3.5 % Normal 0.9-7.0 [facility] Comment on above: Performed By: #### C BC #### [facility] [address] [place] [address] Dr. Dwight Waters Erythrocyte distribution width (RBC) [Ratio] 13.0 % Normal 11.0-15.0 [facility] Comment on above: Performed By: #### C BC #### [facility] [address] [place] [address] Dr. Dwight Waters Hematocrit (Bld) [Volume fraction] 50.0 % Normal 42.0-54.0 [facility] Comment on above: Performed By: #### C BC #### [facility] [address] [place] [address] Dr. Dwight Waters Hemoglobin (Bld) [Mass/Vol] 16.0 g/dL Normal 14.0-18.0 [facility] Comment on above: Performed By: #### C BC #### [facility] [address] [place] [address] Dr. Dwight Waters IG # 0.02 10e3/ul Normal 0.00-0.03 [facility] Comment on above: Performed By: #### C BC #### [facility] [address] [place] [address] Dr. Dwight Waters IG % 0.3 % Normal 0.0-0.5 [facility] Comment on above: Performed By: #### C BC #### [facility] [address] [place] [address] Dr. Dwight Waters LYMPH # 1.8 103/ul Normal 1.2-3.8 [facility] Comment on above: Performed By: #### C BC #### [facility] [address] [place] [address] Dr. Dwight Waters Lymphocytes/100 WBC (Bld) 26.5 % Normal 20.5-60.0 [facility] Comment on above: Performed By: #### C BC #### [facility] [address] [place] [address] Dr. Dwight Waters MANUAL DIFF REQ NO Normal [facility] Comment on above: Performed By: #### C BC #### [facility] [address] [address] [address] Dwight Waters MCH (RBC) [Entitic mass] 28.1 pg Normal 25.9-34.0 [facility] Comment on above: Performed By: #### C BC #### [facility] [address] [place] [address] Dr. Dwight Waters MCHC (RBC) [Mass/Vol] 32.0 g/dL Normal 29.9-35.2 [facility] Comment on above: Performed By: #### C BC #### [facility] [address] [place] [address] Dr. Dwight Waters MCV (RBC) [Entitic vol] 87.9 fL Normal 80.0-94.0 [facility] Comment on above: Performed By: #### C BC #### [facility] [address] [place] [address] Dr. Dwight Waters MONO # 0.5 103/ul Normal 0.3-0.8 [facility] Comment on above: Performed By: #### C BC #### [facility] [address] [place] [address] Dr. Dwight Waters Monocytes/100 WBC (Bld) 8.1 % Normal 1.7-12.0 [facility] Comment on above: Performed By: #### C BC #### [facility] [address] [place] [address] Dr. Dwight Waters NEUT # 4.0 103/ul Normal 1.4-6.5 [facility] Comment on above: Performed By: #### C BC #### [facility] [address] [place] [address] Dr. Dwight Waters Neutrophils/100 WBC (Bld) 60.8 % Normal 43.0-75.0 [facility] Comment on above: Performed By: #### C BC #### [facility] [address] [place] [address] Dr. Dwight Waters Platelet mean volume (Bld) [Entitic vol] 9.4 fL Critically low 9.5-13.5 [facility] Comment on above: Performed By: #### C BC #### [facility] [address] [address] [address] Dwight Waters PLT 265 103/ul Normal 150-450 [facility] Comment on above: Performed By: #### C BC #### [facility] [address] [address] [address] Dwight Waters RBC 5.69 106/ul Normal 4.70-6.10 [facility] Comment on above: Performed By: #### C BC #### [facility] [address] [address] [address] Dwight Waters WBC 6.6 103/ul Normal 4.0-11.0 [facility] Comment on above: Performed By: #### C BC #### [facility] [address] [place] [address] Dr. Dwight Waters GGTon 09-15-2022 Gamma glutamyl transferase [Catalytic activity/Vol] 23 U/L Normal 15-85 [facility] Comment on above: Performed By: #### U RTPCR #### [facility] [address] [place] [address] Dr. Dwight Waters MAGNESIUMon 09-15-2022 Magnesium [Mass/Vol] 1.8 mg/dL Normal 1.8-2.4 [facility] Comment on above: Performed By: #### U RTPCR #### [facility] [address] [place] [address] Dr. Dwight Waters RENAL FUNCTION PANELon 09-15 Albumin [Mass/Vol] 4.1 g/dL Normal 3.4-5.0 [facility] Comment on above: Performed By: #### C BC #### [facility] [address] [place] [address] Dr. Dwight Waters Calcium [Mass/Vol] 9.3 mg/dL Normal 8.5-10.1 [facility] Comment on above: Performed By: #### C BC #### [facility] [address] [place] [address] Dr. Dwight Waters Chloride [Moles/Vol] 107 mmol/L Normal 98-107 [facility] Comment on above: Performed By: #### C BC #### [facility] [address] [address] [address] Dwight Waters CO2 [Moles/Vol] 25.6 mmol/L Normal 21.0-32.0 [facility] Comment on above: Performed By: #### C BC #### [facility] [address] [address] [address] Dwight Waters Creatinine [Mass/Vol] 1.01 mg/dL Normal 0.70-1.30 [facility] Comment on above: Performed By: #### C BC #### [facility] [address] [address] [address] Dwight Waters EGFR-AF TURKS AND CAICOS ISLANDER >60 Normal >=60 [facility] Comment on above: Performed By: #### C BC #### [facility] [address] [place] [address] Dr. Dwight Waters EGFR-NON AF TURKS AND CAICOS ISLANDER >60 Normal >=60 [facility] Comment on above: Performed By: #### C BC #### [facility] [address] [address] [address] Dwight Waters Glucose [Mass/Vol] 119 mg/dL Critically high 74-106 [facility] Comment on above: Performed By: #### C BC #### [facility] [address] [address] [address] Dwight Waters Phosphate [Mass/Vol] 2.8 mg/dL Normal 2.6-4.7 [facility] Comment on above: Performed By: #### C BC #### [facility] [address] [address] [address] Dwight Waters Potassium [Moles/Vol] 4.0 mmol/L Normal 3.5-5.1 [facility] Comment on above: Performed By: #### C BC #### [facility] [address] [address] [address] Dwight Waters Sodium [Moles/Vol] 141 mmol/L Normal 136-145 [facility] Comment on above: Performed By: #### C BC #### [facility] [address] [place] [address] Dr. Dwight Waters Urea nitrogen [Mass/Vol] 15.0 mg/dL Normal 7.0-18.0 [facility] Comment on above: Performed By: #### C BC #### [facility] [address] [place] [address] Dr. Dwight Waters SGOTon 09-15-2022 AST [Catalytic activity/Vol] 18 U/L Normal 15-37 [facility] Comment on above: Performed By: #### U RTPCR #### [facility] [address] [place] [address] Dr. Dwight Waters SGPTon 09-15-2022 ALT [Catalytic activity/Vol] 32 U/L Normal 16-63 [facility] Comment on above: Performed By: #### C BC #### [facility] [address] [place] [address] Dr. Dwight Waters URINE T PROTEIN CREAT RATIOo n 09-15-2022 Protein (U) [Mass/Vol] 14.1 mg/dL Critically high <=12.0 [facility] Comment on above: Performed By: #### U RTPCR #### [facility] [address] [place] [address] Dr. Dwight Waters UR PROT CREAT RAT 0.14 Normal [facility] Comment on above: Performed By: #### U RTPCR #### [facility] [address] [place] [address] Dr. Dwight Waters URINE CREAT 98.89 mg/dL Normal 20.00-300.00 [facility] Comment on above: Performed By: #### U RTPCR #### [facility] [address] [place] [address] Dr. Dwight Waters US CAROTID ART BILon [...] JIMENEZ Date: 2022-08-28 13:20 Normal [facility] FK506 (TACROLIMUS) WHOLE BLO ODon 08-17-2022 Tacrolimus (FK506), Blood 9.9 ng/mL Normal 2.0-20.0 [facility] Comment on above: Result Comment: Trou gh (immediately following transplant) 15.0 . Trough (steady state, 2 weeks or more after transplant): 3.0 - 8.0 . Performed by LC-MS/MS technology. Performed By: #### F [id number] #### [facility] [address] [place] [address] Dr. Dwight Waters BK VIRUS PCR QUANTon 022 BKV DNA QUANT PCR PLASMA Negative Normal Negative [facility] Comment on above: Result Comment: No B K DNA detected. . The linear range of the assay is 22 - 100,000,000 IU/mL. Performed By: #### U RTPCR #### [facility] [address] [place] [address] Dr. Dwight Waters Log10 BKV DNA Plasma Normal [facility] Comment on above: Performed By: #### U RTPCR #### [facility] [address] [place] [address] Dr. Dwight Waters ALBUMINon 08-14-2022 Albumin [Mass/Vol] 4.2 g/dL Normal 3.4-5.0 [facility] Comment on above: Performed By: #### F [id number] #### [facility] [address] [place] [address] Dr. Dwight Waters ALKALINE PHOSPHAon ALP [Catalytic activity/Vol] 92 U/L Normal 46-116 [facility] Comment on above: Performed By: #### C BC #### [facility] [address] [place] [address] Dr. Dwight Waters BILIRUBIN CONJUGATED (DIRECT )on 08-14-2022 BILI, CONJUGATED 0.3 mg/dL Critically high 0.0-0.2 [facility] Comment on above: Performed By: #### F [id number] #### [facility] [address] [place] [address] Dr. Dwight Waters BILIRUBIN TOTALon 08-14-2022 Bilirubin [Mass/Vol] 1.5 mg/dL Critically high 0.2-1.0 [facility] Comment on above: Performed By: #### F [id number] #### [facility] [address] [place] [address] Dr. Dwight Waters BUNon 08-14-2022 Urea nitrogen [Mass/Vol] 11.0 mg/dL Normal 7.0-18.0 [facility] Comment on above: Performed By: #### C BC #### [facility] [address] [place] [address] Dr. Dwight Waters CALCIUMon 08-14-2022 Calcium [Mass/Vol] 9.4 mg/dL Normal 8.5-10.1 [facility] Comment on above: Performed By: #### F [id number] #### [facility] [address] [place] [address] Dr. Dwight Waters CBC AUTO DIFFon 08-14-2022 BASO # 0.0 103/ul Normal 0.0-0.1 [facility] Comment on above: Performed By: #### C MP #### [facility] [address] [place] [address] Dr. Dwight Waters Basophils/100 WBC (Bld) 0.5 % Normal 0.2-2.0 [facility] Comment on above: Performed By: #### C MP #### [facility] [facility] [address] [place] [address] Dr. Dwight Waters EO # 0.2 103/ul Normal 0.0-0.7 [facility] Comment on above: Performed By: #### C MP #### [facility] [address] [place] [address] Dr. Dwight Waters Eosinophils/100 WBC (Bld) 2.6 % Normal 0.9-7.0 [facility] Comment on above: Performed By: #### C MP #### [facility] [address] [place] [address] Dr. Dwight Waters Erythrocyte distribution width (RBC) [Ratio] 13.1 % Normal 11.0-15.0 [facility] Comment on above: Performed By: #### C MP #### [facility] [address] [place] [address] Dr. Dwight Waters Hematocrit (Bld) [Volume fraction] 47.0 % Normal 42.0-54.0 [facility] Comment on above: Performed By: #### C MP #### [facility] [address] [place] [address] Dr. Dwight Waters Hemoglobin (Bld) [Mass/Vol] 15.3 g/dL Normal 14.0-18.0 [facility] Comment on above: Performed By: #### C MP #### [facility] [address] [place] [address] Dr. Dwight Waters IG # 0.01 10e3/ul Normal 0.00-0.03 [facility] Comment on above: Performed By: #### C MP #### [facility] [address] [place] [address] Dr. Dwight Waters IG % 0.1 % Normal 0.0-0.5 [facility] Comment on above: Performed By: #### C MP #### [facility] [address] [place] [address] Dr. Dwight Waters LYMPH # 2.3 103/ul Normal 1.2-3.8 [facility] Comment on above: Performed By: #### C MP #### [facility] [address] [place] [address] Dr. Dwight Waters Lymphocytes/100 WBC (Bld) 29.8 % Normal 20.5-60.0 [facility] Comment on above: Performed By: #### C MP #### [facility] [address] [place] [address] Dr. Dwight Waters MANUAL DIFF REQ NO Normal [facility] Comment on above: Performed By: #### C MP #### [facility] [address] [place] [address] Dr. Dwight Waters MCH (RBC) [Entitic mass] 28.2 pg Normal 25.9-34.0 [facility] Comment on above: Performed By: #### C MP #### [facility] [address] [place] [address] Dr. Dwight Waters MCHC (RBC) [Mass/Vol] 32.6 g/dL Normal 29.9-35.2 [facility] Comment on above: Performed By: #### C MP #### [facility] [address] [place] [address] Dr. Dwight Waters MCV (RBC) [Entitic vol] 86.7 fL Normal 80.0-94.0 [facility] Comment on above: Performed By: #### C MP #### [facility] [address] [place] [address] Dr. Dwight Waters MONO # 0.7 103/ul Normal 0.3-0.8 [facility] Comment on above: Performed By: #### C MP #### [facility] [address] [place] [address] Dr. Dwight Waters Monocytes/100 WBC (Bld) 8.5 % Normal 1.7-12.0 [facility] Comment on above: Performed By: #### C MP #### [facility] [address] [place] [address] Dr. Dwight Waters NEUT # 4.5 103/ul Normal 1.4-6.5 [facility] Comment on above: Performed By: #### C MP #### [facility] [address] [place] [address] Dr. Dwight Waters Neutrophils/100 WBC (Bld) 58.5 % Normal 43.0-75.0 [facility] Comment on above: Performed By: #### C MP #### [facility] [address] [place] [address] Dr. Dwight Waters Platelet mean volume (Bld) [Entitic vol] 9.7 fL Normal 9.5-13.5 [facility] Comment on above: Performed By: #### C MP #### [facility] [address] [place] [address] Dr. Dwight Waters PLT 266 103/ul Normal 150-450 [facility] Comment on above: Performed By: #### C MP #### [facility] [address] [place] [address] Dr. Dwight Waters RBC 5.42 106/ul Normal 4.70-6.10 [facility] Comment on above: Performed By: #### C MP #### [facility] [address] [place] [address] Dr. Dwight Waters WBC 7.6 103/ul Normal 4.0-11.0 [facility] Comment on above: Performed By: #### C MP #### [facility] [address] [place] [address] Dr. Dwight Waters CHLORIDEon 08-14-2022 Chloride [Moles/Vol] 104 mmol/L Normal 98-107 [facility] Comment on above: Performed By: #### C BC #### [facility] [address] [place] [address] Dr. Dwight Waters CO2on 08-14-2022 CO2 [Moles/Vol] 27.9 mmol/L Normal 21.0-32.0 [facility] Comment on above: Performed By: #### C BC #### [facility] [address] [place] [address] Dr. Dwight Waters CREATININEon 08-14-2022 Creatinine [Mass/Vol] 1.08 mg/dL Normal 0.70-1.30 [facility] Comment on above: Performed By: #### C BC #### [facility] [address] [place] [address] Dr. Dwight Waters EGFR-AF TURKS AND CAICOS ISLANDER >60 Normal >=60 [facility] Comment on above: Performed By: #### C BC #### [facility] [address] [place] [address] Dr. Dwight Waters EGFR-NON AF TURKS AND CAICOS ISLANDER >60 Normal >=60 [facility] Comment on above: Performed By: #### C BC #### [facility] [address] [place] [address] Dr. Dwight Waters GGTon 08-14-2022 Gamma glutamyl transferase [Catalytic activity/Vol] 24 U/L Normal 15-85 [facility] Comment on above: Performed By: #### F [id number] #### [facility] [address] [place] [address] Dr. Dwight Waters GLUCOSE BLOODon 08-14-2022 Glucose [Mass/Vol] 111 mg/dL Critically high 74-106 [facility] Comment on above: Performed By: #### C BC #### [facility] [address] [place] [address] Dr. Dwight Waters MAGNESIUMon 08-14-2022 Magnesium [Mass/Vol] 1.4 mg/dL Critically low 1.8-2.4 [facility] Comment on above: Performed By: #### C BC #### [facility] [address] [place] [address] Dr. Dwight Waters NAon 08-14-2022 Sodium [Moles/Vol] 140 mmol/L Normal 136-145 [facility] Comment on above: Performed By: #### F [id number] #### [facility] [address] [place] [address] Dr. Dwight Waters PHOSPHORUSon 08-14-2022 Phosphate [Mass/Vol] 3.1 mg/dL Normal 2.6-4.7 [facility] Comment on above: Performed By: #### C BC #### [facility] [address] [place] [address] Dr. Dwight Waters POTASSIUMon 08-14-2022 Potassium [Moles/Vol] 3.5 mmol/L Normal 3.5-5.1 [facility] Comment on above: Performed By: #### C BC #### [facility] [address] [place] [address] Dr. Dwight Waters SGOTon 08-14-2022 AST [Catalytic activity/Vol] 17 U/L Normal 15-37 [facility] Comment on above: Performed By: #### F [id number] #### [facility] [address] [place] [address] Dr. Dwight Waters SGPTon 08-14-2022 ALT [Catalytic activity/Vol] 22 U/L Normal 16-63 [facility] Comment on above: Performed By: #### F [id number] #### [facility] [address] [place] [address] Dr. Dwight Waters URINE T PROTEIN CREAT RATIOo n 08-14-2022 Protein (U) [Mass/Vol] 10.7 mg/dL Normal <=12.0 [facility] Comment on above: Performed By: #### F [id number] #### [facility] [address] [place] [address] Dr. Dwight Waters UR PROT CREAT RAT 0.10 Normal [facility] Comment on above: Performed By: #### F [id number] #### [facility] [address] [place] [address] Dr. Dwight Waters URINE CREAT 104.28 mg/dL Normal 20.00-300.00 [facility] Comment on above: Performed By: #### F [id number] #### [facility] [address] [place] [address] Dr. Dwight Waters NEPHROSTOMY TUBE REMOVALon 0 [...] physician present for entire procedure: yes U [facility] Radiology Study observation (narrative) [facility] FK506 (TACROLIMUS) WHOLE BLO ODon 07-06-2022 Tacrolimus (FK506), Blood 9.5 ng/mL Normal 2.0-20.0 [facility] Comment on above: Result Comment: Trou gh (immediately following transplant) 15.0 . Trough (steady state, 2 weeks or more after transplant): 3.0 - 8.0 . Performed by LC-MS/MS technology. Performed By: #### C MP #### [facility] [address] [place] [address] Dr. Dwight Waters ALBUMINon 07-03-2022 Albumin [Mass/Vol] 3.7 g/dL Normal 3.4-5.0 [facility] Comment on above: Performed By: #### U RTPCR #### [facility] [address] [place] [address] Dr. Dwight Waters ALKALINE PHOSPHAon ALP [Catalytic activity/Vol] 76 U/L Normal 46-116 [facility] Comment on above: Performed By: #### U RTPCR #### [facility] [address] [place] [address] Dr. Dwight Waters BILIRUBIN CONJUGATED (DIRECT )on 07-03-2022 BILI, CONJUGATED 0.3 mg/dL Critically high 0.0-0.2 [facility] Comment on above: Performed By: #### C BC #### [facility] [address] [place] [address] Dr. Dwight Waters BILIRUBIN TOTALon 07-03-2022 Bilirubin [Mass/Vol] 1.4 mg/dL Critically high 0.2-1.0 [facility] Comment on above: Performed By: #### C BC #### [facility] [address] [place] [address] Dr. Dwight Waters BUNon 07-03-2022 Urea nitrogen [Mass/Vol] 15.0 mg/dL Normal 7.0-18.0 [facility] Comment on above: Performed By: #### C BC #### [facility] [address] [place] [address] Dr. Dwight Waters CALCIUMon 07-03-2022 Calcium [Mass/Vol] 9.4 mg/dL Normal 8.5-10.1 [facility] Comment on above: Performed By: #### U RTPCR #### [facility] [address] [place] [address] Dr. Dwight Waters CBC AUTO DIFFon 07-03-2022 BASO # 0.0 103/ul Normal 0.0-0.1 [facility] Comment on above: Performed By: #### U RTPCR #### [facility] [address] [place] [address] Dr. Dwight Waters Basophils/100 WBC (Bld) 0.6 % Normal 0.2-2.0 [facility] Comment on above: Performed By: #### U RTPCR #### [facility] [address] [place] [address] Dr. Dwight Waters EO # 0.2 103/ul Normal 0.0-0.7 [facility] Comment on above: Performed By: #### U RTPCR #### [facility] [address] [place] [address] Dr. Dwight Waters Eosinophils/100 WBC (Bld) 3.5 % Normal 0.9-7.0 [facility] Comment on above: Performed By: #### U RTPCR #### [facility] [address] [place] [address] Dr. Dwight Waters Erythrocyte distribution width (RBC) [Ratio] 12.9 % Normal 11.0-15.0 [facility] Comment on above: Performed By: #### U RTPCR #### [facility] [address] [place] [address] Dr. Dwight Waters Hematocrit (Bld) [Volume fraction] 44.2 % Normal 42.0-54.0 [facility] Comment on above: Performed By: #### U RTPCR #### [facility] [address] [place] [address] Dr. Dwight Waters Hemoglobin (Bld) [Mass/Vol] 14.6 g/dL Normal 14.0-18.0 [facility] Comment on above: Performed By: #### U RTPCR #### [facility] [address] [place] [address] Dr. Dwight Waters IG # 0.02 10e3/ul Normal 0.00-0.03 [facility] Comment on above: Performed By: #### U RTPCR #### [facility] [address] [place] [address] Dr. Dwight Waters IG % 0.3 % Normal 0.0-0.5 [facility] Comment on above: Performed By: #### U RTPCR #### [facility] [address] [place] [address] Dr. Dwight Waters LYMPH # 2.0 103/ul Normal 1.2-3.8 [facility] Comment on above: Performed By: #### U RTPCR #### [facility] [address] [place] [address] Dr. Dwight Waters Lymphocytes/100 WBC (Bld) 28.4 % Normal 20.5-60.0 [facility] Comment on above: Performed By: #### U RTPCR #### [facility] [address] [place] [address] Dr. Dwight Waters MANUAL DIFF REQ NO Normal [facility] Comment on above: Performed By: #### U RTPCR #### [facility] [address] [place] [address] Dr. Dwight Waters MCH (RBC) [Entitic mass] 28.6 pg Normal 25.9-34.0 [facility] Comment on above: Performed By: #### U RTPCR #### [facility] [address] [place] [address] Dr. Dwight Waters MCHC (RBC) [Mass/Vol] 33.0 g/dL Normal 29.9-35.2 [facility] Comment on above: Performed By: #### U RTPCR #### [facility] [address] [place] [address] Dr. Dwight Waters MCV (RBC) [Entitic vol] 86.7 fL Normal 80.0-94.0 [facility] Comment on above: Performed By: #### U RTPCR #### [facility] [address] [place] [address] Dr. Dwight Waters MONO # 0.6 103/ul Normal 0.3-0.8 [facility] Comment on above: Performed By: #### U RTPCR #### [facility] [address] [place] [address] Dr. Dwight Waters Monocytes/100 WBC (Bld) 9.1 % Normal 1.7-12.0 [facility] Comment on above: Performed By: #### U RTPCR #### [facility] [address] [place] [address] Dr. Dwight Waters NEUT # 4.0 103/ul Normal 1.4-6.5 [facility] Comment on above: Performed By: #### U RTPCR #### [facility] [address] [place] [address] Dr. Dwight Waters Neutrophils/100 WBC (Bld) 58.1 % Normal 43.0-75.0 [facility] Comment on above: Performed By: #### U RTPCR #### [facility] [address] [place] [address] Dr. Dwight Waters Platelet mean volume (Bld) [Entitic vol] 9.5 fL Normal 9.5-13.5 [facility] Comment on above: Performed By: #### U RTPCR #### [facility] [address] [place] [address] Dr. Dwight Waters PLT 292 103/ul Normal 150-450 [facility] Comment on above: Performed By: #### U RTPCR #### [facility] [address] [place] [address] Dr. Dwight Waters RBC 5.10 106/ul Normal 4.70-6.10 [facility] Comment on above: Performed By: #### U RTPCR #### [facility] [address] [place] [address] Dr. Dwight Waters WBC 6.9 103/ul Normal 4.0-11.0 [facility] Comment on above: Performed By: #### U RTPCR #### [facility] [address] [place] [address] Dr. Dwight Waters CHLORIDEon 07-03-2022 Chloride [Moles/Vol] 108 mmol/L Critically high 98-107 [facility] Comment on above: Performed By: #### C BC #### [facility] [address] [place] [address] Dr. Dwight Waters CO2on 07-03-2022 CO2 [Moles/Vol] 25.2 mmol/L Normal 21.0-32.0 [facility] Comment on above: Performed By: #### C BC #### [facility] [address] [place] [address] Dr. Dwight Waters CREATININEon 07-03-2022 Creatinine [Mass/Vol] 1.03 mg/dL Normal 0.70-1.30 [facility] Comment on above: Performed By: #### U RTPCR #### [facility] [address] [place] [address] Dr. Dwight Waters EGFR-AF TURKS AND [place]IC[place] ISLANDER >60 Normal >=60 [facility] Comment on above: Performed By: #### U RTPCR #### [facility] [address] [place] [address] Dr. Dwight Waters EGFR-NON AF TURKS AND [place] ISLANDER >60 Normal >=60 [facility] Comment on above: Performed By: #### U RTPCR #### [facility] [address] [place] [address] Dr. Dwight Waters GGTon 07-03-2022 Gamma glutamyl transferase [Catalytic activity/Vol] 31 U/L Normal 15-85 [facility] Comment on above: Performed By: #### U RTPCR #### [facility] [address] [place] [address] Dr. Dwight Waters GLUCOSE BLOODon 07-03-2022 Glucose [Mass/Vol] 119 mg/dL Critically high 74-106 T [facility] Comment on above: Performed By: #### U RTPCR #### [facility] [address] [place] [address] Dr. Dwight Waters MAGNESIUMon 07-03-2022 Magnesium [Mass/Vol] 1.4 mg/dL Critically low 1.8-2.4 [facility] Comment on above: Performed By: #### C BC #### [facility] [address] [place] [address] Dr. Dwight Waters NAon 07-03-2022 Sodium [Moles/Vol] 142 mmol/L Normal 136-145 [facility] Comment on above: Performed By: #### C MP #### [facility] [address] [place] [address] Dr. Dwight Waters PHOSPHORUSon 07-03-2022 Phosphate [Mass/Vol] 3.4 mg/dL Normal 2.6-4.7 [facility] Comment on above: Performed By: #### C BC #### [facility] [address] [place] [address] Dr. Dwight Waters POTASSIUMon 07-03-2022 Potassium [Moles/Vol] 4.1 mmol/L Normal 3.5-5.1 [facility] Comment on above: Performed By: #### C BC #### [facility] [address] [place] [address] Dr. Dwight Waters SGOTon 07-03-2022 AST [Catalytic activity/Vol] 14 U/L Critically low 15-37 [facility] Comment on above: Performed By: #### C BC #### [facility] [address] [place] [address] Dr. Dwight Waters SGPTon 07-03-2022 ALT [Catalytic activity/Vol] 25 U/L Normal 16-63 [facility] Comment on above: Performed By: #### C BC #### [facility] [address] [place] [address] Dr. Dwight Waters US KIDNEYSon 07-03-2022 US KIDNEYS Ultrasound kidneys, bilateral HISTORY: Transplant of kidney , pain in the right lower quadrant COMPARISON: None. TECHNIQUE: Transabdominal ultrasound imaging of both kidneys was performed. FINDINGS: The [place] kidneys are diffusely echogenic and atrophic with cortical thinning. The right kidney measures 8.3 x 3.5 x 4.07 m and the left measures 9.9 x 3.8 x 3.6 cm. No hydronephrosis of the [place] kidneys. There is a renal transplant in [...] stone involving the renal transplant. 2. Atrophic [place] kidneys. 3. Normal bladder. Electronically authenticated by: ARCELIA PIZARRO Date: 2022-07-03 17:22 [address] [facility] CT Abdomen and Pelvis WO con traston 06-27-2022 IMPRESSION: 1. Both [place] kidneys are atrophic with improvement in right-sided [...] Adrenals: Adrenal glands are unremarkable. Kidneys: Both [place] kidneys are atrophic. Interval improvement in right [place] kidney hydronephrosis since May 15, 2022. Status [...] Adrenals: Adrenal glands are unremarkable. Kidneys: Both [place] kidneys are atrophic. Interval improvement in right [place] kidney hydronephrosis since May 15, 2022. Status [...] aggressive osseous lesions. IMPRESSION IMPRESSION: 1. Both [place] kidneys are atrophic with improvement in right-sided hydronephrosis since May 15, 2022. 2. 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 No hydronephrosis. No discrete perinephric collection. 3. Partially imaged postsurgical changes related to prior liver transplant. 4. The bladder is decompressed, limiting evaluation. [facility] Radiology Study observation (narrative) [facility] CT Abdomen and Pelvis WO con trastOrdered By: Gera Lu on 06-27-2022 [facility] Work Phone: CBC AUTO DIFFon 06-18-2022 BASO # 0.0 103/ul Normal 0.0-0.1 [facility] Comment on above: Performed By: #### U RTPCR #### [facility] [address] [place] [address] Dr. Dwight Waters Basophils/100 WBC (Bld) 0.5 % Normal 0.2-2.0 [facility] Comment on above: Performed By: #### U RTPCR #### [facility] [address] [place] [address] Dr. Dwight Waters EO # 0.2 103/ul Normal 0.0-0.7 [facility] Comment on above: Performed By: #### U RTPCR #### [facility] [address] [place] [address] Dr. Dwight Waters Eosinophils/100 WBC (Bld) 2.3 % Normal 0.9-7.0 [facility] Comment on above: Performed By: #### U RTPCR #### [facility] [address] [place] [address] Dr. Dwight Waters Erythrocyte distribution width (RBC) [Ratio] 12.9 % Normal 11.0-15.0 [facility] Comment on above: Performed By: #### U RTPCR #### [facility] [address] [place] [address] Dr. Dwight Waters Hematocrit (Bld) [Volume fraction] 41.2 % Critically low 42.0-54.0 [facility] Comment on above: Performed By: #### U RTPCR #### [facility] [address] [place] [address] Dr. Dwight Waters Hemoglobin (Bld) [Mass/Vol] 13.3 g/dL Critically low 14.0-18.0 [facility] Comment on above: Performed By: #### U RTPCR #### [facility] [address] [place] [address] Dr. Dwight Waters IG # 0.04 10e3/ul Critically high 0.00-0.03 [facility] Comment on above: Performed By: #### U RTPCR #### [facility] [address] [place] [address] Dr. Dwight Waters IG % 0.5 % Normal 0.0-0.5 [facility] Comment on above: Performed By: #### U RTPCR #### [facility] [address] [place] [address] Dr. Dwight Waters LYMPH # 2.0 103/ul Normal 1.2-3.8 [facility] Comment on above: Performed By: #### U RTPCR #### [facility] [address] [place] [address] Dr. Dwight Waters Lymphocytes/100 WBC (Bld) 22.9 % Normal 20.5-60.0 [facility] Comment on above: Performed By: #### U RTPCR #### [facility] [address] [place] [address] Dr. Dwight Waters MANUAL DIFF REQ NO Normal [facility] Comment on above: Performed By: #### U RTPCR #### [facility] [address] [place] [address] Dr. Dwight Waters MCH (RBC) [Entitic mass] 28.7 pg Normal 25.9-34.0 [facility] Comment on above: Performed By: #### U RTPCR #### [facility] [address] [place] [address] Dr. Dwight Waters MCHC (RBC) [Mass/Vol] 32.3 g/dL Normal 29.9-35.2 [facility] Comment on above: Performed By: #### U RTPCR #### [facility] [address] [place] [address] Dr. Dwight Waters MCV (RBC) [Entitic vol] 88.8 fL Normal 80.0-94.0 [facility] Comment on above: Performed By: #### U RTPCR #### [facility] [address] [place] [address] Dr. Dwight Waters MONO # 0.8 103/ul Normal 0.3-0.8 [facility] Comment on above: Performed By: #### U RTPCR #### [facility] [address] [place] [address] Dr. Dwight Waters Monocytes/100 WBC (Bld) 9.7 % Normal 1.7-12.0 [facility] Comment on above: Performed By: #### U RTPCR #### [facility] [address] [place] [address] Dr. Dwight Waters NEUT # 5.6 103/ul Normal 1.4-6.5 [facility] Comment on above: Performed By: #### U RTPCR #### [facility] [address] [place] [address] Dr. Dwight Waters Neutrophils/100 WBC (Bld) 64.1 % Normal 43.0-75.0 [facility] Comment on above: Performed By: #### U RTPCR #### [facility] [address] [place] [address] Dr. Dwight Waters Platelet mean volume (Bld) [Entitic vol] 10.0 fL Normal 9.5-13.5 [facility] Comment on above: Performed By: #### U RTPCR #### [facility] [address] [place] [address] Dr. Dwight Waters PLT 270 103/ul Normal 150-450 [facility] Comment on above: Performed By: #### U RTPCR #### [facility] [address] [place] [address] Dr. Dwight Waters RBC 4.64 106/ul Critically low 4.70-6.10 [facility] Comment on above: Performed By: #### U RTPCR #### [facility] [address] [place] [address] Dr. Dwight Waters WBC 8.7 103/ul Normal 4.0-11.0 [facility] Comment on above: Performed By: #### U RTPCR #### [facility] [address] [place] [address] Dr. Dwight Waters CULTURE URINEon 06-18-2022 CULTURE URINE Culture Observations : NO GROWTH. Normal [facility] Comment on above: Performed By: #### U RTPCR #### [facility] [address] [place] [address] Dr. Dwight Waters Covid-19 PCR (CVDTB)on 05-31 SARS-CoV-2 (COVID-19) RNA ESTELITA+probe Ql (Unsp spec) Not detected Normal NOT DETECTED [facility] Comment on above: Result Comment: When [...] for this test is supported by the Health Unit Clerk of Health and Human Service's declaration [...] Performed By: #### C BC #### [facility] [address] [place] [address] Dr. Dwight Waters ER URINE PROFILEon 2 Bilirubin Ql (U) Negative Normal NEGATIVE [facility] Comment on above: Performed By: #### U RTPCR #### [facility] [address] [place] [address] Dr. Dwight Waters Clarity (U) CLEAR Normal CLEAR [facility] Comment on above: Performed By: #### U RTPCR #### [facility] [address] [place] [address] Dr. Dwight Waters Color (U) YELLOW Normal YELLOW [facility] Comment on above: Performed By: #### U RTPCR #### [facility] [address] [place] [address] Dr. Dwight SHARMA A micrscopic examina tion will be performed if indicated. Normal [facility] Comment on above: Performed By: #### U RTPCR #### [facility] [address] [place] [address] Dr. Dwight Waters Glucose Ql (U) Negative Normal NEGATIVE [facility] Comment on above: Performed By: #### U RTPCR #### [facility] [address] [place] [address] Dr. Dwight Waters Hemoglobin Ql (U) LARGE Abnormal NEGATIVE [facility] Comment on above: Performed By: #### U RTPCR #### [facility] [address] [place] [address] Dr. Dwight Waters Ketones Ql (U) Negative Normal NEGATIVE [facility] Comment on above: Performed By: #### U RTPCR #### [facility] [address] [place] [address] Dr. Dwight Waters LEUKOCYTES TRACE Abnormal NEGATIVE [facility] Comment on above: Performed By: #### U RTPCR #### [facility] [address] [place] [address] Dr. Dwight Waters Nitrite Ql (U) Negative Normal NEGATIVE [facility] Comment on above: Performed By: #### U RTPCR #### [facility] [address] [place] [address] Dr. Dwight Waters pH (U) 6.0 [pH] Normal 5-9 [facility] Comment on above: Performed By: #### U RTPCR #### [facility] [address] [place] [address] Dr. Dwight aWters Protein (U) [Mass/Vol] 30 mg/dL Abnormal NEGATIVE/ TRACE [facility] Comment on above: Performed By: #### U RTPCR #### [facility] [address] [place] [address] Dr. Dwight Waters SPEC GRAVITY >=1.030 Abnormal 1.005-<=1.02 5 [facility] Comment on above: Performed By: #### U RTPCR #### [facility] [address] [place] [address] Dr. Dwight Waters UR MICRO IND INDICATED Normal [facility] Comment on above: Performed By: #### U RTPCR #### [facility] [address] [place] [address] Dr. Dwight Waters Urobilinogen Qn (U) 0.2 {Alyssa'U}/dL Normal 0.2 - 1. 0 [facility] Comment on above: Performed By: #### U RTPCR #### [facility] [address] [place] [address] Dr. Dwight Waters PROF 14(COMP METB)on 022 Albumin [Mass/Vol] 3.7 g/dL Normal 3.4-5.0 [facility] Comment on above: Performed By: #### C MP #### [facility] [address] [place] [address] Dr. Dwight Waters Albumin/Globulin [Mass ratio] 0.9 {ratio} Normal [facility] Comment on above: Performed By: #### C MP #### [facility] [address] [place] [address] Dr. Dwight Waters ALP [Catalytic activity/Vol] 80 U/L Normal 46-116 [facility] Comment on above: Performed By: #### C MP #### [facility] [address] [place] [address] Dr. Dwight Waters ALT [Catalytic activity/Vol] 24 U/L Normal 16-63 [facility] Comment on above: Performed By: #### C MP #### [facility] [address] [place] [address] Dr. Dwight Waters Anion gap [Moles/Vol] 12.9 mmol/L Normal [facility] Comment on above: Performed By: #### C MP #### [facility] [address] [place] [address] Dr. Dwight Waters AST [Catalytic activity/Vol] 17 U/L Normal 15-37 [facility] Comment on above: Performed By: #### C MP #### [facility] [address] [place] [address] Dr. Dwight Waters Bilirubin [Mass/Vol] 0.8 mg/dL Normal 0.2-1.0 [facility] Comment on above: Performed By: #### C MP #### [facility] [address] [place] [address] Dr. Dwight Waters Calcium [Mass/Vol] 9.4 mg/dL Normal 8.5-10.1 [facility] Comment on above: Performed By: #### C MP #### [facility] [address] [place] [address] Dr. Dwight Waters Chloride [Moles/Vol] 106 mmol/L Normal 98-107 [facility] Comment on above: Performed By: #### C MP #### [facility] [address] [place] [address] Dr. Dwight Waters CO2 [Moles/Vol] 25.3 mmol/L Normal 21.0-32.0 [facility] Comment on above: Performed By: #### C MP #### [facility] [address] [place] [address] Dr. Dwight Waters Creatinine [Mass/Vol] 1.29 mg/dL Normal 0.70-1.30 [facility] Comment on above: Performed By: #### C MP #### [facility] [address] [place] [address] Dr. Dwight Waters EGFR-AF TURKS AND CAICOS ISLANDER >60 Normal >=60 [facility] Comment on above: Performed By: #### C MP #### [facility] [address] [address] [address] Dwight Waters EGFR-NON AF TURKS AND CAICOS ISLANDER 59 mL/min/1.73m2 Critically low >=60 [facility] Comment on above: Performed By: #### C MP #### [facility] [address] [address] [address] Dwight Waters Globulin (S) [Mass/Vol] 4.2 g/dL Normal [facility] Comment on above: Performed By: #### C MP #### [facility] [address] [address] [address] Dwight Waters Glucose [Mass/Vol] 106 mg/dL Normal 74-106 [facility] Comment on above: Performed By: #### C MP #### [facility] [address] [address] [address] Dwight Waters Potassium [Moles/Vol] 4.2 mmol/L Normal 3.5-5.1 [facility] Comment on above: Performed By: #### C MP #### [facility] [address] [address] [address] Dwight Waters Protein [Mass/Vol] 7.9 g/dL Normal 6.4-8.2 [facility] Comment on above: Performed By: #### C MP #### [facility] [address] [address] [address] Dwight Waters Sodium [Moles/Vol] 140 mmol/L Normal 136-145 [facility] Comment on above: Performed By: #### C MP #### [facility] [address] [address] [address] Dwight Waters Urea nitrogen [Mass/Vol] 22.0 mg/dL Critically high 7.0-18.0 [facility] Comment on above: Performed By: #### C MP #### [facility] [address] [address] [address] Dwight Waters Urea nitrogen/Creatinine [Mass ratio] 17.1 mg/mg Normal [facility] Comment on above: Performed By: #### C MP #### [facility] [address] [place] [address] Dr. Dwight Waters URINE MICROSCOPIC ONLYon BACTERIA TRACE Abnormal NONE SEEN [facility] Comment on above: Performed By: #### U RTPCR #### [facility] [address] [place] [address] Dr. Dwight Waters Bacteria identified Cx Nom (U) INDICATED Normal [facility] Comment on above: Performed By: #### U RTPCR #### [facility] [address] [place] [address] Dr. Dwight Waters CAST NONE SEEN Normal NONE SEEN [facility] Comment on above: Performed By: #### U RTPCR #### [facility] [address] [place] [address] Dr. Dwight Waters Crystals LM Nom (Urine sed) NONE SEEN Normal NONE SEEN [facility] Comment on above: Performed By: #### U RTPCR #### [facility] [address] [place] [address] Dr. Dwight Waters Epithelial cells LM Ql (Urine sed) NONE SEEN Normal NONE SEEN /RARE [facility] Comment on above: Performed By: #### U RTPCR #### [facility] [address] [place] [address] Dr. Dwight Waters MUCOUS NONE SEEN Normal NONE SEEN [facility] Comment on above: Performed By: #### U RTPCR #### [facility] [address] [place] [address] Dr. Dwight Waters RBC 5-10 Abnormal 0-2 [facility] Comment on above: Performed By: #### U RTPCR #### [facility] [address] [place] [address] Dr. Dwight Waters WBC 10-20 Abnormal NONE SEEN [facility] Comment on above: Performed By: #### U RTPCR #### [facility] [address] [place] [address] Dr. Dwight Waters ALLOSCREEN RECIPIENT (POST T X PRA)on 06-13-2022 AB SPECIFICITY CLASS COMMENT Antibody Specificity testing performed by [employer]. cPRA calculation based on identification of HLA antibody specificities at MFI >2000 and/or presence of CREG antibodies. [facility] Comment on above: Some of the reagents used for testing in the Clinical Histocompatibility Laboratory have yet to be approved by the FDA. Our certification by CLIA to perform high complexity tests allows us to use these reagents in the context of a stringent QC program, and obviates the need for FDA approval.Testing performed by the [facility] Clinical Histocompatibility Laboratory. [facility] number: [id number]. CLIA number: [id number], Director: Carlito Merchant, PhD, D([facility]). ANTIBODY SPECIFICITY INTERPRETATION Detected [facility] CLASS I SPECIFICITIES Not detected [facility] CLASS II SPECIFICITIES Not detected [facility] HLA Ab (S) 0 % 0 [facility] EXTRA MICROon 06-13-2022 [facility] URINE CULTUREOrdered By: Jah Upton on 06-13-2022 Bacteria identified Cx Nom (Unsp spec) Growth [facility] Bacteria identified Cx Nom (Unsp spec) 10,000-50,000 CFU/mL Mixed skin shimon [facility] Comment on above: Multiple bacterial m orphotypes present. Suggest appropriate recollection if clinically indicated. [facility] CBC,PLATELETSon 06-12-2022 Erythrocyte distribution width (RBC) [Ratio] 13.0 % 10.9 - 14.3 % [facility] Hematocrit (Bld) [Volume fraction] 43.2 % 39.6 - 48.8 % [facility] Hemoglobin (Bld) [Mass/Vol] 13.9 g/dL 13.4 - 16.8 g/dL [facility] Interpretation and review of laboratory results Normal [facility] MCH (RBC) [Entitic mass] 28.7 pg 26.1 - 33.3 pg [facility] MCHC (RBC) [Mass/Vol] 32.2 g/dL 31.9 - 36.5 g/dL [facility] MCV (RBC) [Entitic vol] 89.1 fL 79.0 - 94.5 fL [facility] Platelet mean volume (Bld) [Entitic vol] 10.5 fL 8.7 - 12.3 fL [facility] Platelets (Bld) [#/Vol] 269 10*3/uL 146 - 337 K/uL [facility] RBC (Bld) [#/Vol] 4.85 10*6/uL [facility] WBC (Bld) [#/Vol] 7.68 10*3/uL 3.73 - 10. 10 K/uL [facility] CHEM 7 (LYTES,BUN,CREA,GLUC) on 06-12-2022 Anion gap [Moles/Vol] 14 mmol/L 7 - 17 mmol/L [facility] Chloride [Moles/Vol] 106 mmol/L 98 - 10 8 mmol/L [facility] CO2 [Moles/Vol] 25 mmol/L 21 - 31 mmol/L [facility] Creatinine [Mass/Vol] 1.26 mg/dL 0.70 - 1.30 mg/dL [facility] GFR/1.73 sq M.predicted CKD-EPI (S/P/Bld) [Vol rate/Area] 69 >=60 mL/min/1.73m 2 [facility] Comment on above: Reported eGFR is bas ed on the CKD-EPI 2020 equation using creatinine, age, and sex. Glucose [Mass/Vol] 83 mg/dL 70 - 99 mg/dL [facility] Osmolality Calc [Osmolality] 295 [facility] Potassium [Moles/Vol] 3.8 mmol/L 3.5 - 5.0 mmol/L [facility] Sodium [Moles/Vol] 141 mmol/L 135 - 145 mmol/L [facility] Urea nitrogen [Mass/Vol] 18 mg/dL 7 - 25 mg/dL [facility] Urea nitrogen/Creatinine [Mass ratio] 14 mg/mg [facility] GGTon 06-12-2022 Gamma glutamyl transferase [Catalytic activity/Vol] 20 U/L 8 - 64 U/L [facility] HEMOGLOBIN [id number] By: [employer] on 06-12-2022 Average glucose Estimated from glycated hemoglobin (Bld) [Mass/Vol] 126 mg/dL [facility] HbA1c (Bld) [Mass fraction] 6.0 % High 4.7 - 5.6 % [facility] Interpretation and review of laboratory results Abnormal [facility] HEPATIC FUNCTION PANELon Albumin [Mass/Vol] 4.3 g/dL 3.5 - 5.0 g/dL [facility] ALP [Catalytic activity/Vol] 78 U/L 32 - 126 U/L [facility] ALT [Catalytic activity/Vol] 12 U/L 10 - 52 U/L [facility] AST [Catalytic activity/Vol] 16 U/L 10 - 39 U/L [facility] Bilirubin [Mass/Vol] 1.0 mg/dL <1.5 [facility] Bilirubin.direct [Mass/Vol] 0.2 mg/dL <0.3 [facility] Protein [Mass/Vol] 7.5 g/dL 6.4 - 8.3 g/dL [facility] No Panel Informationon 06-12 Interpretation and review of laboratory results Normal [facility] PTH INTACTOrdered By: Marli Lizarraga on 06-12-2022 Interpretation and review of laboratory results Abnormal [facility] Parathyrin.intact [Mass/Vol] 79.7 pg/mL High 14.0 - 72.0 pg/mL [facility] URINALYSIS REFLEX TO CULTURE PERFORMABLEon 06-12-2022 Appearance (U) Clear Clear [facility] Bacteria LM Ql (Urine sed) ABSENT ABSENT [facility] Color (U) Yellow Yellow [facility] Epithelial cells.squamous LM Ql (Urine sed) 1/hpf = 1+ 1/hpf = 1+, 2-5/hpf = 2+, 0/hpf = 0+, ABSENT [facility] Glucose Test strip (U) [Mass/Vol] Negative Negative [facility] Interpretation and review of laboratory results Abnormal [facility] Ketones (U) [Mass/Vol] Trace Abnormal Negative [facility] Leukocyte esterase Test strip Ql (U) Small Abnormal Negative [facility] Nitrite Ql (U) Negative Negative [facility] pH (U) 5.5 [pH] 5.0 - 7.0 [facility] Protein (U) [Mass/Vol] 30 mg/dL Abnormal Negative [facility] RBC (U) [#/Vol] Trace Abnormal Negative [facility] RBC LM.HPF (Urine sed) [#/Area] 0-2 0 - 2 /HPF [facility] Specific gravity (U) [Rel density] 1.026 [facility] Urobilinogen (U) [Mass/Vol] 0.2 E.U./dL 0.2 E.U/dL, 1.0 E.U/dL [facility] WBC LM.HPF (Urine sed) [#/Area] 10-20 Abnormal 0 - 5 /HPF [facility] URINE PROTEIN/CREA RATIO, RA NDOMon 06-12-2022 Creatinine (24H U) [Mass/Vol] 231.68 mg/dL [facility] Protein Unsp time (U) [Mass/Vol] 49 mg/dL [facility] Protein/Creatinine (U) [Mass ratio] 0.211 mg/g [facility] FK506 (TACROLIMUS) WHOLE BLO ODon 06-09-2022 Tacrolimus (FK506), Blood 9.8 ng/mL Normal 2.0-20.0 [facility] Comment on above: Result Comment: Trou gh (immediately following transplant) 15.0 . Trough (steady state, 2 weeks or more after transplant): 3.0 - 8.0 . Performed by LC-MS/MS technology. Performed By: #### U RTPCR #### [facility] [address] [place] [address] Dr. Dwight Waters ALBUMINon 06-06-2022 Albumin [Mass/Vol] 3.8 g/dL Normal 3.4-5.0 [facility] Comment on above: Performed By: #### C MP #### [facility] [address] [place] [address] Dr. Dwight Waters ALKALINE PHOSPHAon ALP [Catalytic activity/Vol] 82 U/L Normal 46-116 [facility] Comment on above: Performed By: #### C MP #### [facility] [address] [place] [address] Dr. Dwight Waters BILIRUBIN CONJUGATED (DIRECT )on 06-06-2022 BILI, CONJUGATED 0.2 mg/dL Normal 0.0-0.2 [facility] Comment on above: Performed By: #### C BC #### [facility] [address] [place] [address] Dr. Dwight Waters BILIRUBIN TOTALon 06-06-2022 Bilirubin [Mass/Vol] 1.0 mg/dL Normal 0.2-1.0 [facility] Comment on above: Performed By: #### C BC #### [facility] [address] [place] [address] Dr. Dwight Waters BUNon 06-06-2022 Urea nitrogen [Mass/Vol] 18.0 mg/dL Normal 7.0-18.0 [facility] Comment on above: Performed By: #### C BC #### [facility] [address] [place] [address] Dr. Dwight Waters CALCIUMon 06-06-2022 Calcium [Mass/Vol] 9.4 mg/dL Normal 8.5-10.1 [facility] Comment on above: Performed By: #### C MP #### [facility] [address] [place] [address] Dr. Dwight Waters CBC AUTO DIFFon 06-06-2022 BASO # 0.1 103/ul Normal 0.0-0.1 [facility] Comment on above: Performed By: #### U RTPCR #### [facility] [address] [place] [address] Dr. Dwight Waters Basophils/100 WBC (Bld) 0.8 % Normal 0.2-2.0 [facility] Comment on above: Performed By: #### U RTPCR #### [facility] [address] [place] [address] Dr. Dwight Waters EO # 0.3 103/ul Normal 0.0-0.7 [facility] Comment on above: Performed By: #### U RTPCR #### [facility] [address] [place] [address] Dr. Dwight Waters Eosinophils/100 WBC (Bld) 3.3 % Normal 0.9-7.0 [facility] Comment on above: Performed By: #### U RTPCR #### [facility] [address] [place] [address] Dr. Dwight Waters Erythrocyte distribution width (RBC) [Ratio] 12.4 % Normal 11.0-15.0 [facility] Comment on above: Performed By: #### U RTPCR #### [facility] [address] [place] [address] Dr. Dwight Waters Hematocrit (Bld) [Volume fraction] 45.1 % Normal 42.0-54.0 [facility] Comment on above: Performed By: #### U RTPCR #### [facility] [address] [place] [address] Dr. Dwight Waters Hemoglobin (Bld) [Mass/Vol] 14.4 g/dL Normal 14.0-18.0 [facility] Comment on above: Performed By: #### U RTPCR #### [facility] [address] [place] [address] Dr. Dwight Waters IG # 0.01 10e3/ul Normal 0.00-0.03 [facility] Comment on above: Performed By: #### U RTPCR #### [facility] [address] [place] [address] Dr. Dwight Waters IG % 0.1 % Normal 0.0-0.5 [facility] Comment on above: Performed By: #### U RTPCR #### [facility] [address] [place] [address] Dr. Dwight Waters LYMPH # 2.2 103/ul Normal 1.2-3.8 [facility] Comment on above: Performed By: #### U RTPCR #### [facility] [address] [place] [address] Dr. Dwight Waters Lymphocytes/100 WBC (Bld) 30.0 % Normal 20.5-60.0 [facility] Comment on above: Performed By: #### U RTPCR #### [facility] [address] [place] [address] Dr. Dwight Waters MANUAL DIFF REQ NO Normal [facility] Comment on above: Performed By: #### U RTPCR #### [facility] [address] [place] [address] Dr. Dwight Waters MCH (RBC) [Entitic mass] 28.2 pg Normal 25.9-34.0 [facility] Comment on above: Performed By: #### U RTPCR #### [facility] [address] [place] [address] Dr. Dwight Waters MCHC (RBC) [Mass/Vol] 31.9 g/dL Normal 29.9-35.2 [facility] Comment on above: Performed By: #### U RTPCR #### [facility] [address] [place] [address] Dr. Dwight Waters MCV (RBC) [Entitic vol] 88.3 fL Normal 80.0-94.0 [facility] Comment on above: Performed By: #### U RTPCR #### [facility] [address] [place] [address] Dr. Dwight Waters MONO # 0.6 103/ul Normal 0.3-0.8 [facility] Comment on above: Performed By: #### U RTPCR #### [facility] [address] [place] [address] Dr. Dwight Waters Monocytes/100 WBC (Bld) 8.2 % Normal 1.7-12.0 [facility] Comment on above: Performed By: #### U RTPCR #### [facility] [address] [place] [address] Dr. Dwight Waters NEUT # 4.3 103/ul Normal 1.4-6.5 [facility] Comment on above: Performed By: #### U RTPCR #### [facility] [address] [address] [address] Dwight Waters Neutrophils/100 WBC (Bld) 57.6 % Normal 43.0-75.0 [facility] Comment on above: Performed By: #### U RTPCR #### [facility] [address] [place] [address] Dr. Dwight Waters Platelet mean volume (Bld) [Entitic vol] 9.7 fL Normal 9.5-13.5 [facility] Comment on above: Performed By: #### U RTPCR #### [facility] [address] [place] [address] Dr. Dwight Waters PLT 297 103/ul Normal 150-450 [facility] Comment on above: Performed By: #### U RTPCR #### [facility] [address] [place] [address] Dr. Dwight Waters RBC 5.11 106/ul Normal 4.70-6.10 [facility] Comment on above: Performed By: #### U RTPCR #### [facility] [address] [place] [address] Dr. Dwight Waters WBC 7.5 103/ul Normal 4.0-11.0 [facility] Comment on above: Performed By: #### U RTPCR #### [facility] [address] [place] [address] Dr. Dwight Waters CHLORIDEon 06-06-2022 Chloride [Moles/Vol] 107 mmol/L Normal 98-107 [facility] Comment on above: Performed By: #### C BC #### [facility] [address] [place] [address] Dr. Dwight Waters CO2on 06-06-2022 CO2 [Moles/Vol] 27.4 mmol/L Normal 21.0-32.0 [facility] Comment on above: Performed By: #### C BC #### [facility] [address] [place] [address] Dr. Dwight Waters CREATININEon 06-06-2022 Creatinine [Mass/Vol] 1.20 mg/dL Normal 0.70-1.30 [facility] Comment on above: Performed By: #### C BC #### [facility] [address] [address] [address] Dwight Waters EGFR-AF TURKS AND [place] ISLANDER >60 Normal >=60 [facility] Comment on above: Performed By: #### C BC #### [facility] [address] [address] [address] Dwight Waters EGFR-NON AF TURKS AND CAICOS ISLANDER >60 Normal >=60 [facility] Comment on above: Performed By: #### C BC #### [facility] [address] [place] [address] Dr. Dwight Waters GGTon 06-06-2022 Gamma glutamyl transferase [Catalytic activity/Vol] 29 U/L Normal 15-85 [facility] Comment on above: Performed By: #### C BC #### [facility] [address] [place] [address] Dr. Dwight Waters GLUCOSE BLOODon 06-06-2022 Glucose [Mass/Vol] 112 mg/dL Critically high 74-106 [facility] Comment on above: Performed By: #### C BC #### [facility] [address] [place] [address] Dr. Dwight Waters MAGNESIUMon 06-06-2022 Magnesium [Mass/Vol] 1.3 mg/dL Critically low 1.8-2.4 [facility] Comment on above: Performed By: #### C MP #### [facility] [address] [place] [address] Dr. Dwight Waters NAon 06-06-2022 Sodium [Moles/Vol] 141 mmol/L Normal 136-145 [facility] Comment on above: Performed By: #### C MP #### [facility] [address] [place] [address] Dr. Dwight Waters PHOSPHORUSon 06-06-2022 Phosphate [Mass/Vol] 3.1 mg/dL Normal 2.6-4.7 [facility] Comment on above: Performed By: #### C MP #### [facility] [address] [place] [address] Dr. Dwight Waters POTASSIUMon 06-06-2022 Potassium [Moles/Vol] 4.3 mmol/L Normal 3.5-5.1 [facility] Comment on above: Performed By: #### C BC #### [facility] [address] [place] [address] Dr. Dwight Araizan 06-06-2022 AST [Catalytic activity/Vol] 16 U/L Normal 15-37 [facility] Comment on above: Performed By: #### C BC #### [facility] [address] [address] [address] Dwight Waters SGPTon 06-06-2022 ALT [Catalytic activity/Vol] 50 U/L Normal 16-63 [facility] Comment on above: Performed By: #### C BC #### [facility] [address] [place] [address] Dr. Dwight Waters Bacteria identified Cx Nom ( Bld)on 05-21-2022 Bacteria identified Cx Nom (Unsp spec) NO GROWTH DAY 5 OF 5 [facility] Results may be compr omised due to volume of BACT\ALERT bottle exceeding 10mLs . The optimal blood volume is 8-10 mls per aerobic/anaerobic blood culture bottle. [facility] CALCIUMon 05-20-2022 Calcium [Mass/Vol] 9.1 mg/dL 8.6 - 10. 5 mg/dL [facility] CBC,PLATELETSon 05-20-2022 Erythrocyte distribution width (RBC) [Ratio] 12.5 % 10.9 - 14.3 % [facility] Hematocrit (Bld) [Volume fraction] 37.1 % Low 39.6 - 48.8 % [facility] Hemoglobin (Bld) [Mass/Vol] 12.3 g/dL Low 13.4 - 16.8 g/dL [facility] Interpretation and review of laboratory results Abnormal [facility] MCH (RBC) [Entitic mass] 28.9 pg 26.1 - 33.3 pg [facility] MCHC (RBC) [Mass/Vol] 33.2 g/dL 31.9 - 36.5 g/dL [facility] MCV (RBC) [Entitic vol] 87.3 fL 79.0 - 94.5 fL [facility] Platelet mean volume (Bld) [Entitic vol] 9.9 fL 8.7 - 12.3 fL [facility] Platelets (Bld) [#/Vol] 234 10*3/uL 146 - 337 K/uL [facility] RBC (Bld) [#/Vol] 4.25 10*6/uL Low [facility] WBC (Bld) [#/Vol] 6.31 10*3/uL 3.73 - 10. 10 K/uL [facility] CHEM 7 (LYTES,BUN,CREA,GLUC) on 05-20-2022 Anion gap [Moles/Vol] 15 mmol/L 7 - 17 mmol/L [facility] Chloride [Moles/Vol] 111 mmol/L High 98 - 10 8 mmol/L [facility] CO2 [Moles/Vol] 22 mmol/L 21 - 31 mmol/L [facility] Creatinine [Mass/Vol] 1.10 mg/dL 0.70 - 1.30 mg/dL [facility] GFR/1.73 sq M.predicted CKD-EPI (S/P/Bld) [Vol rate/Area] 81 >=60 mL/min/1.73m 2 [facility] Comment on above: Reported eGFR is bas ed on the CKD-EPI 2020 equation using creatinine, age, and sex. Glucose [Mass/Vol] 92 mg/dL 70 - 99 mg/dL [facility] Interpretation and review of laboratory results Abnormal [facility] Osmolality Calc [Osmolality] 302 [facility] Potassium [Moles/Vol] 4.4 mmol/L 3.5 - 5.0 mmol/L [facility] Sodium [Moles/Vol] 144 mmol/L 135 - 145 mmol/L [facility] Urea nitrogen [Mass/Vol] 18 mg/dL 7 - 25 mg/dL [facility] Urea nitrogen/Creatinine [Mass ratio] 16 mg/mg [facility] MAGNESIUMon 06-21-2022 Interpretation and review of laboratory results [facility]normal [facility] Magnesium [Mass/Vol] 1.5 mg/dL Low 1.6 - 2 .6 mg/dL [facility] No Panel Informationon 05-20 Interpretation and review of laboratory results [facility] [place] [facility] PHOSPHATE, INORGANICon 05-20 Phosphate [Mass/Vol] 3.3 mg/dL 2.2 - 4 .6 mg/dL [facility] RF Unspecified body [...] projections of kidneys, ureters, and bladder. FINDINGS: Planting Supervisor images: Planting Supervisor radiographs of the abdomen reveal a nonobstructive [...] Contrast refluxes up the ureter to the [place] right kidney that is grossly normal appearing. [...] projections of kidneys, ureters, and bladder. FINDINGS: Planting Supervisor images: Planting Supervisor radiographs of the abdomen reveal a nonobstructive [...] Contrast refluxes up the ureter to the [place] right kidney that is grossly normal appearing. [...] [facility]ative[facility] RF Unspecified body region V iews during surgeryOrdered By: Lizz Campos on 05-20-2022 [facility] Work Phone: CALCIUMon 05-19-2022 Calcium [Mass/Vol] 9.2 mg/dL 8.6 - 10. 5 mg/dL [facility] Calcium [Mass/Vol] 8.6 mg/dL 8.6 - 10. 5 mg/dL [facility] CBC,PLATELETSon 05-19-2022 Erythrocyte distribution width (RBC) [Ratio] 12.4 % 10.9 - 14.3 % [facility] Hematocrit (Bld) [Volume fraction] 38.0 % Low 39.6 - 48.8 % [facility] Hemoglobin (Bld) [Mass/Vol] 12.0 g/dL Low 13.4 - 16.8 g/dL [facility] Interpretation and review of laboratory results Abnormal [facility] MCH (RBC) [Entitic mass] 28.6 pg 26.1 - 33.3 pg [facility] MCHC (RBC) [Mass/Vol] 31.6 g/dL Low 31.9 - 36.5 g/dL [facility] MCV (RBC) [Entitic vol] 90.5 fL 79.0 - 94.5 fL [facility] Platelet mean volume (Bld) [Entitic vol] 9.7 fL 8.7 - 12.3 fL [facility] Platelets (Bld) [#/Vol] 199 10*3/uL 146 - 337 K/uL [facility] RBC (Bld) [#/Vol] 4.20 10*6/uL Low [facility] WBC (Bld) [#/Vol] 6.81 10*3/uL 3.73 - 10. 10 K/uL [facility] CHEM 7 (LYTES,BUN,CREA,GLUC) on 05-19-2022 Anion gap [Moles/Vol] 13 mmol/L 7 - 17 mmol/L [facility] Chloride [Moles/Vol] 105 mmol/L 98 - 10 8 mmol/L [facility] CO2 [Moles/Vol] 30 mmol/L 21 - 31 mmol/L [facility] Creatinine [Mass/Vol] 1.39 mg/dL High 0.70 - 1.30 mg/dL [facility] GFR/1.73 sq M.predicted CKD-EPI (S/P/Bld) [Vol rate/Area] 61 >=60 mL/min/1.73m 2 [facility] Comment on above: Reported eGFR is bas ed on the CKD-EPI 2021 equation using creatinine, age, and sex. Glucose [Mass/Vol] 121 mg/dL High 70 - 99 mg/dL [facility] Interpretation and review of laboratory results Abnormal [facility] Osmolality Calc [Osmolality] 303 [facility] Potassium [Moles/Vol] 3.8 mmol/L 3.5 - 5.0 mmol/L [facility] Sodium [Moles/Vol] 144 mmol/L 135 - 145 mmol/L [facility] Urea nitrogen [Mass/Vol] 18 mg/dL 7 - 25 mg/dL [facility] Urea nitrogen/Creatinine [Mass ratio] 13 mg/mg [facility] Anion gap [Moles/Vol] 15 mmol/L 7 - 17 mmol/L [facility] Chloride [Moles/Vol] 106 mmol/L 98 - 10 8 mmol/L [facility] CO2 [Moles/Vol] 24 mmol/L 21 - 31 mmol/L [facility] Creatinine [Mass/Vol] 1.46 mg/dL High 0.70 - 1.30 mg/dL [facility] GFR/1.73 sq M.predicted CKD-EPI (S/P/Bld) [Vol rate/Area] 58 Low >=60 mL/min/1.73m 2 [facility] Comment on above: Reported eGFR is bas ed on the CKD-EPI 2021 equation using creatinine, age, and sex. Glucose [Mass/Vol] 103 mg/dL High 70 - 99 mg/dL [facility] Interpretation and review of laboratory results Abnormal [facility] Osmolality Calc [Osmolality] 298 [facility] Potassium [Moles/Vol] 3.9 mmol/L 3.5 - 5.0 mmol/L [facility] Sodium [Moles/Vol] 141 mmol/L 135 - 145 mmol/L [facility] Urea nitrogen [Mass/Vol] 21 mg/dL 7 - 25 mg/dL [facility] Urea nitrogen/Creatinine [Mass ratio] 14 mg/mg [facility] MAGNESIUMon 05-19-2022 Magnesium [Mass/Vol] 2.0 mg/dL 1.6 - 2 .6 mg/dL [facility] Magnesium [Mass/Vol] 1.7 mg/dL 1.6 - 2 .6 mg/dL [facility] No Panel Informationon 05-19 Interpretation and review of laboratory results Normal [facility] Interpretation and review of laboratory results Normal [facility] PHOSPHATE, INORGANICon 05-19 Phosphate [Mass/Vol] 3.0 mg/dL 2.2 - 4 .6 mg/dL [facility] Phosphate [Mass/Vol] 2.7 mg/dL 2.2 - 4 .6 mg/dL [facility] CALCIUMon 05-18-2022 Calcium [Mass/Vol] 9.1 mg/dL 8.6 - 10. 5 mg/dL [facility] CBC,PLATELETSon 05-18-2022 Erythrocyte distribution width (RBC) [Ratio] 12.5 % 10.9 - 14.3 % [facility] Hematocrit (Bld) [Volume fraction] 37.3 % Low 39.6 - 48.8 % [facility] Hemoglobin (Bld) [Mass/Vol] 11.9 g/dL Low 13.4 - 16.8 g/dL [facility] Interpretation and review of laboratory results Abnormal [facility] MCH (RBC) [Entitic mass] 28.9 pg 26.1 - 33.3 pg [facility] MCHC (RBC) [Mass/Vol] 31.9 g/dL 31.9 - 36.5 g/dL [facility] MCV (RBC) [Entitic vol] 90.5 fL 79.0 - 94.5 fL [facility] Platelet mean volume (Bld) [Entitic vol] 10.1 fL 8.7 - 12.3 fL [facility] Platelets (Bld) [#/Vol] 189 10*3/uL 146 - 337 K/uL [facility] RBC (Bld) [#/Vol] 4.12 10*6/uL Low [facility] WBC (Bld) [#/Vol] 10.19 10*3/uL High 3.73 - 10 .10 K/uL [facility] CHEM 7 (LYTES,BUN,CREA,GLUC) on 05-18-2022 Anion gap [Moles/Vol] 13 mmol/L 7 - 17 mmol/L [facility] Chloride [Moles/Vol] 102 mmol/L 98 - 10 8 mmol/L [facility] CO2 [Moles/Vol] 26 mmol/L 21 - 31 mmol/L [facility] Creatinine [Mass/Vol] 1.91 mg/dL High 0.70 - 1.30 mg/dL [facility] GFR/1.73 sq M.predicted CKD-EPI (S/P/Bld) [Vol rate/Area] 42 Low >=60 mL/min/1.73m 2 [facility] Comment on above: Reported eGFR is bas ed on the CKD-EPI 2020 equation using creatinine, age, and sex. Glucose [Mass/Vol] 158 mg/dL High 70 - 99 mg/dL [facility] Osmolality Calc [Osmolality] 297 [facility] Potassium [Moles/Vol] 4.0 mmol/L 3.5 - 5.0 mmol/L [facility] Sodium [Moles/Vol] 137 mmol/L 135 - 145 mmol/L [facility] Urea nitrogen [Mass/Vol] 30 mg/dL High 7 - 25 mg/dL [facility] Urea nitrogen/Creatinine [Mass ratio] 16 mg/mg [facility] CHEM 7 (LYTES,BUN,CREA,GLUC) Ordered By: Tamiko Thapa on 05-18-2022 Anion gap [Moles/Vol] 13 mmol/L 7 - 17 mmol/L [facility] Chloride [Moles/Vol] 104 mmol/L 98 - 10 8 mmol/L [facility] CO2 [Moles/Vol] 26 mmol/L 21 - 31 mmol/L [facility] Creatinine [Mass/Vol] 2.96 mg/dL High 0.70 - 1.30 mg/dL [facility] GFR/1.73 sq M.predicted CKD-EPI (S/P/Bld) [Vol rate/Area] 25 Low >=60 mL/min/1.73m 2 [facility] Comment on above: Reported eGFR is bas ed on the CKD-EPI 2020 equation using creatinine, age, and sex. Glucose [Mass/Vol] 136 mg/dL High 70 - 99 mg/dL [facility] Interpretation and review of laboratory results Abnormal [facility] Osmolality Calc [Osmolality] 304 [facility] Potassium [Moles/Vol] 4.2 mmol/L 3.5 - 5.0 mmol/L [facility] Sodium [Moles/Vol] 139 mmol/L 135 - 145 mmol/L [facility] Urea nitrogen [Mass/Vol] 41 mg/dL High 7 - 25 mg/dL [facility] Urea nitrogen/Creatinine [Mass ratio] 14 mg/mg [facility] MAGNESIUMon 05-18-2022 Magnesium [Mass/Vol] 2.2 mg/dL 1.6 - 2 .6 mg/dL [facility] Interpretation and review of laboratory results Normal [facility] Magnesium [Mass/Vol] 1.7 mg/dL 1.6 - 2 .6 mg/dL [facility] No Panel Informationon 05-18 Interpretation and review of laboratory results Abnormal [facility] Interpretation and review of laboratory results Normal [facility] PHOSPHATE, INORGANICon 05-18 Phosphate [Mass/Vol] 2.0 mg/dL Low 2.2 - 4 .6 mg/dL [facility] Interpretation and review of laboratory results Normal [facility] Phosphate [Mass/Vol] 2.8 mg/dL 2.2 - 4 .6 mg/dL [facility] PT,INR,PTTon 05-18-2022 aPTT Coag (PPP) [Time] 31.0 s [facility] INR Coag (Bld) [Relative time] 1.1 {INR} [facility] Interpretation and review of laboratory results Abnormal [facility] PT Coag (PPP) [Time] 14.4 s High [facility] URINE CULTUREOrdered By: Sylvia Campos on 05-18-2022 Bacteria identified Cx Nom (Unsp spec) No Growth [facility] CBC,PLATELETSon 05-17-2022 Erythrocyte distribution width (RBC) [Ratio] 12.8 % 10.9 - 14.3 % [facility] Hematocrit (Bld) [Volume fraction] 42.8 % 39.6 - 48.8 % [facility] Hemoglobin (Bld) [Mass/Vol] 13.3 g/dL Low 13.4 - 16.8 g/dL [facility] Interpretation and review of laboratory results Abnormal [facility] MCH (RBC) [Entitic mass] 28.9 pg 26.1 - 33.3 pg [facility] MCHC (RBC) [Mass/Vol] 31.1 g/dL Low 31.9 - 36.5 g/dL [facility] MCV (RBC) [Entitic vol] 92.8 fL 79.0 - 94.5 fL [facility] Platelet mean volume (Bld) [Entitic vol] 10.3 fL 8.7 - 12.3 fL [facility] Platelets (Bld) [#/Vol] 188 10*3/uL 146 - 337 K/uL [facility] RBC (Bld) [#/Vol] 4.61 10*6/uL [facility] WBC (Bld) [#/Vol] 16.61 10*3/uL High 3.73 - 10 .10 K[facility] [place] [facility] CHEM 7 (LYTES,BUN,CREA,GLUC) Ordered By: Kaylah Mc on 05-17-2022 Anion gap [Moles/Vol] 15 mmol/L 7 - 17 mmol/L [facility] Chloride [Moles/Vol] 103 mmol/L 98 - 10 8 mmol/L [facility] CO2 [Moles/Vol] 23 mmol/L 21 - 31 mmol/L [facility] Creatinine [Mass/Vol] 5.95 mg/dL High 0.70 - 1.30 mg/dL [facility] GFR/1.73 sq M.predicted CKD-EPI (S/P/Bld) [Vol rate/Area] 11 Low >=60 mL/min/1.73m 2 [facility] Comment on above: Reported eGFR is bas ed on the CKD-EPI 2020 equation using creatinine, age, and sex. Glucose [Mass/Vol] 165 mg/dL High 70 - 99 mg/dL [facility] Interpretation and review of laboratory results Abnormal [facility] Osmolality Calc [Osmolality] 305 [facility] Potassium [Moles/Vol] 4.6 mmol/L 3.5 - 5.0 mmol/L [facility] Sodium [Moles/Vol] 136 mmol/L 135 - 145 mmol/L [facility] Urea nitrogen [Mass/Vol] 52 mg/dL High 7 - 25 mg/dL [facility] Urea nitrogen/Creatinine [Mass ratio] 9 mg/mg [facility] CHEM 7 (LYTES,BUN,CREA,GLUC) Ordered By: Kehinde Gutierrez on 05-17-2022 Anion gap [Moles/Vol] 24 mmol/L High 7 - 17 mmol/L [facility] Chloride [Moles/Vol] 100 mmol/L 98 - 10 8 mmol/L [facility] CO2 [Moles/Vol] 16 mmol/L Low 21 - 31 mmol/L [facility] Creatinine [Mass/Vol] 8.08 mg/dL High 0.70 - 1.30 mg/dL [facility] GFR/1.73 sq M.predicted CKD-EPI (S/P/Bld) [Vol rate/Area] 7 Low >=60 mL/min/1.73m 2 [facility] Comment on above: Reported eGFR is bas ed on the CKD-EPI 2020 equation using creatinine, age, and sex. Glucose [Mass/Vol] 164 mg/dL High 70 - 99 mg/dL [facility] Interpretation and review of laboratory results Abnormal [facility] Osmolality Calc [Osmolality] 305 [facility] Potassium [Moles/Vol] 5.0 mmol/L 3.5 - 5.0 mmol/L [facility] Sodium [Moles/Vol] 135 mmol/L 135 - 145 mmol/L [facility] Urea nitrogen [Mass/Vol] 56 mg/dL High 7 - 25 mg/dL [facility] Urea nitrogen/Creatinine [Mass ratio] 7 mg/mg [facility] LAVENDER TOP TUBEon 05-17-20 [facility] MAGNESIUMon 05-17-2022 Interpretation and review of laboratory results Normal [facility] Magnesium [Mass/Vol] 1.8 mg/dL 1.6 - 2 .6 mg/dL [facility] Interpretation and review of laboratory results Normal [facility] Magnesium [Mass/Vol] 1.6 mg/dL 1.6 - 2 .6 mg/dL [facility] No Panel Informationon 05-17 [facility] PHOSPHATE, INORGANICon 05-17 Interpretation and review of laboratory results Abnormal [facility] Phosphate [Mass/Vol] 4.9 mg/dL High 2.2 - 4 .6 mg/dL [facility] PT,INR,PTTon 05-17-2022 aPTT Coag (PPP) [Time] 33.0 s [facility] INR Coag (Bld) [Relative time] 1.3 {INR} High [facility] Interpretation and review of laboratory results Abnormal [facility] PT Coag (PPP) [Time] 15.7 s High [facility] Portable XR Chest Viewson IMPRESSION: [...] Stable cardiomegaly. IMPRESSION IMPRESSION: No acute findings. [facility] Radiology Study observation (narrative) [facility] Portable XR Chest ViewsOrder ed By: David Sanz on 05-17-2022 [facility] Work Phone: URINALYSISOrdered By: Michael patel Ma on 05-17-2022 Appearance (U) Cloudy Abnormal Clear [facility] [facility] Comment on above: Results may be inacc urate due to color interference. Clinical correlation recommended. Bacteria LM Ql (Urine sed) ABSENT ABSENT [facility] Color (U) Red Abnormal Yellow [facility] Comment on above: Results may be inacc urate due to color interference. Clinical correlation recommended. Epithelial cells.squamous LM Ql (Urine sed) ABSENT 1/hpf = 1+, 2-5/hpf = 2+, 0/hpf = 0+, ABSENT [facility] Glucose Test strip (U) [Mass/Vol] Negative Negative [facility] Comment on above: Results may be inacc urate due to color interference. Clinical correlation recommended. Interpretation and review of laboratory results Abnormal [facility] Ketones (U) [Mass/Vol] Trace Abnormal Negative [facility] Comment on above: Results may be inacc urate due to color interference. Clinical correlation recommended. Leukocyte esterase Test strip Ql (U) Large Abnormal Negative [facility] Comment on above: Results may be inacc urate due to color interference. Clinical correlation recommended. Nitrite Ql (U) Negative Negative [facility] Comment on above: Results may be inacc urate due to color interference. Clinical correlation recommended. pH (U) 5.0 [pH] 5.0 - 7.0 [facility] Comment on above: Results may be inacc urate due to color interference. Clinical correlation recommended. Protein (U) [Mass/Vol] mg/dL Abnormal Negative [facility] Comment on above: Results may be inacc urate due to color interference. Clinical correlation recommended. RBC (U) [#/Vol] Large Abnormal Negative [facility] Comment on above: Results may be inacc urate due to color interference. Clinical correlation recommended. RBC LM.HPF (Urine sed) [#/Area] /[HPF] Abnormal 0 - 2 /HPF [facility] Specific gravity (U) [Rel density] 1.016 [facility] Comment on above: Results may be inacc urate due to color interference. Clinical correlation recommended. Urobilinogen (U) [Mass/Vol] 0.2 E.U./dL 0.2 E.U/dL, 1.0 E.U/dL [facility] Comment on above: Results may be inacc urate due to color interference. Clinical correlation recommended. WBC LM.HPF (Urine sed) [#/Area] /[HPF] Abnormal 0 - 5 /HPF [facility] URINE CULTUREOrdered By: Tyler Tiwari on 05-17-2022 Bacteria identified Cx Nom (Unsp spec) No Growth [facility] CBC,PLATELETSon 05-16-2022 Erythrocyte distribution width (RBC) [Ratio] 12.9 % 10.9 - 14.3 % [facility] Hematocrit (Bld) [Volume fraction] 46.5 % 39.6 - 48.8 % [facility] Hemoglobin (Bld) [Mass/Vol] 14.7 g/dL 13.4 - 16.8 g/dL [facility] Interpretation and review of laboratory results Abnormal [facility] MCH (RBC) [Entitic mass] 28.3 pg 26.1 - 33.3 pg [facility] MCHC (RBC) [Mass/Vol] 31.6 g/dL Low 31.9 - 36.5 g/dL [facility] MCV (RBC) [Entitic vol] 89.6 fL 79.0 - 94.5 fL [facility] Platelet mean volume (Bld) [Entitic vol] 10.3 fL 8.7 - 12.3 fL [facility] Platelets (Bld) [#/Vol] 188 10*3/uL 146 - 337 K/uL [facility] RBC (Bld) [#/Vol] 5.19 10*6/uL [facility] WBC (Bld) [#/Vol] 12.55 10*3/uL High 3.73 - 10 .10 K/uL [facility] CHEM 7 (LYTES,BUN,CREA,GLUC) Ordered By: Alma Pena on 05-16-2022 Anion gap [Moles/Vol] 14 mmol/L 7 - 17 mmol/L [facility] Chloride [Moles/Vol] 103 mmol/L 98 - 10 8 mmol/L [facility] CO2 [Moles/Vol] 22 mmol/L 21 - 31 mmol/L [facility] Creatinine [Mass/Vol] 6.09 mg/dL High 0.70 - 1.30 mg/dL [facility] GFR/1.73 sq M.predicted CKD-EPI (S/P/Bld) [Vol rate/Area] 10 Low >=60 mL/min/1.73m 2 [facility] Comment on above: Reported eGFR is bas ed on the CKD-EPI 2020 equation using creatinine, age, and sex. Glucose [Mass/Vol] 134 mg/dL High 70 - 99 mg/dL [facility] Interpretation and review of laboratory results Abnormal [facility] Osmolality Calc [Osmolality] 298 [facility] Potassium [Moles/Vol] 4.9 mmol/L 3.5 - 5.0 mmol/L [facility] Sodium [Moles/Vol] 134 mmol/L Low 135 - 145 mmol/L [facility] Comment on above: Results inconsistent with previous results Urea nitrogen [Mass/Vol] 49 mg/dL High 7 - 25 mg/dL [facility] Urea nitrogen/Creatinine [Mass ratio] 8 mg[facility] CHEM 7 (LYTES,BUN,CREA,GLUC) on 05-16-2022 Anion gap [Moles/Vol] 17 mmol/L 7 - 17 mmol/L [facility] Chloride [Moles/Vol] 106 mmol/L 98 - 10 8 mmol/L [facility] CO2 [Moles/Vol] 22 mmol/L 21 - 31 mmol/L [facility] Creatinine [Mass/Vol] 5.23 mg/dL High 0.70 - 1.30 mg/dL [facility] GFR/1.73 sq M.predicted CKD-EPI (S/P/Bld) [Vol rate/Area] 13 Low >=60 mL/min/1.73m 2 [facility] Comment on above: Reported eGFR is bas ed on the CKD-EPI 2020 equation using creatinine, age, and sex. Glucose [Mass/Vol] 116 mg/dL High 70 - 99 mg/dL [facility] Interpretation and review of laboratory results Abnormal [facility] Osmolality Calc [Osmolality] 305 [facility] Potassium [Moles/Vol] 4.6 mmol/L 3.5 - 5.0 mmol/L [facility] Sodium [Moles/Vol] 140 mmol/L 135 - 145 mmol/L [facility] Urea nitrogen [Mass/Vol] 42 mg/dL High 7 - 25 mg/dL [facility] Urea nitrogen/Creatinine [Mass ratio] 8 mg/mg [facility] EXTRA MICROon 05-16-2022 [facility] LT BLUE TOP TUBEon [facility] LYTES (NA, K, CL) - URINE - RANDOMon 05-16-2022 Chloride (24H U) [Moles/Vol] 68 mmol/L [facility] Potassium (24H U) [Moles/Vol] 36.7 mmol/L [facility] Sodium (24H U) [Moles/Vol] 55 mmol/L [facility] The reference range has not been established for random urine specimens. The test result should be integrated into the clinical context for interpretation. [facility] MAGNESIUMon 05-16-2022 Interpretation and review of laboratory results Normal [facility] Magnesium [Mass/Vol] 1.7 mg/dL 1.6 - 2 .6 mg/dL [facility] NOVEL CORONAVIRUS PCROrdered By: Edson Candelario on 05-16-2022 SARS-CoV-2 (COVID-19) RNA ESTELITA+probe Ql (Unsp spec) Not detected NOT DETECTED [facility] Comment on above: [facility] Negative results [...] use authorization for use by authorized laboratories. [facility] No Panel Informationon 05-16 [facility] OSMOLALITY, URINEon 05-16-20 Interpretation and review of laboratory results Normal [facility] Osmolality (U) [Osmolality] 320 mosm/kg [facility] The reference range has not been established for random urine specimens. The test result should be integrated into the clinical context for interpretation. [facility] PROCALCITONINon 05-16-2022 Interpretation and review of laboratory results Normal [facility] Procalcitonin [Mass/Vol] 0.18 ng/mL <0.50 [facility] Comment on above: Procalcitonin is an [...] and trend procalcitonin in various clinical settings. [email or web address] Two common cutoffs associated with bacterial infections are as follows. Respiratory tract infections: >0.25 ng/mL Sepsis/septic shock: >0.5 ng/mL Procalcitonin should not be used alone as a diagnostic tool, however. All procalcitonin results should be interpreted in association with the patients clinical condition and all laboratory findings. [facility] PT,INR,PTTon 05-16-2022 aPTT Coag (PPP) [Time] 30.3 s [facility] INR Coag (Bld) [Relative time] 1.1 {INR} [facility] Interpretation and review of laboratory results Normal [facility] PT Coag (PPP) [Time] 14.1 s [facility] SARS-CoV-2 (COVID-19) RNA NA A+probe Ql (Unsp spec)Ordered By: Edson aCndelario on 05-16-2022 Interpretation and review of laboratory results [facility] TACROLIMUS LEVEL, TROUGH (NH E DRUG LEVEL)Ordered By: Mariama Nick on 05-16-2022 Interpretation and review of laboratory results Normal [facility] Tacrolimus (Bld) [Mass/Vol] 4.1 ng/mL Bone Marrow Transplant: 4.0-12.0, Therapeutic: 5.0-15.0 [facility] Method performed is a chemiluminescent microparticle immunoasssay on the [employer] i2000. The range is based on experience at [facility] and users should be aware that target concentrations vary widely depending on concomitant therapy, time post-transplant, and desired degree of immunosuppression. [facility] URINE PROTEIN/CREA RATIO, RA Baljit 05-16-2022 Creatinine (24H U) [Mass/Vol] 59.82 mg/dL [facility] Protein Unsp time (U) [Mass/Vol] 111 mg/dL [facility] Protein/Creatinine (U) [Mass ratio] 1.856 mg/g [facility] US for transplanted kidney l sanjivon 05-16-2022 [...] appearing vascular flow in the transplant kidney. [facility] Radiology Study observation (narrative) [facility] US for transplanted kidney l imitedOrdered By: Rosendo Matute on 05-16-2022 [facility] Work Phone: CBC AND ELECTRONIC DIFFon Basophils (Bld) [#/Vol] 10*3/uL 0.00 - 0.09 K/uL [facility] Basophils/100 WBC (Bld) 0.2 % [facility] Differential cell count method Nom (Bld) Electronic Differential [facility] Eosinophils (Bld) [#/Vol] 10*3/uL 0.00 - 0.48 K/uL [facility] Eosinophils/100 WBC (Bld) 0.0 % [facility] Erythrocyte distribution width (RBC) [Ratio] 12.8 % 10.9 - 14.3 % [facility] Hematocrit (Bld) [Volume fraction] 46.0 % 39.6 - 48.8 % [facility] Hemoglobin (Bld) [Mass/Vol] 14.6 g/dL 13.4 - 16.8 g/dL [facility] Immature granulocytes (Bld) [#/Vol] 0.07 10*3/uL <=0.08 [facility] Immature granulocytes/100 WBC (Bld) 0.4 % [facility] Interpretation and review of laboratory results Abnormal [facility] Lymphocytes (Bld) [#/Vol] 1.49 10*3/uL 0.83 - 3.57 K/uL [facility] Lymphocytes/100 WBC (Bld) 9.4 % [facility] MCH (RBC) [Entitic mass] 28.2 pg 26.1 - 33.3 pg [facility] MCHC (RBC) [Mass/Vol] 31.7 g/dL Low 31.9 - 36.5 g/dL [facility] MCV (RBC) [Entitic vol] 89.0 fL 79.0 - 94.5 fL [facility] Monocytes (Bld) [#/Vol] 1.45 10*3/uL High 0.24 - 0.93 K/uL [facility] Monocytes/100 WBC (Bld) 9.2 % [facility] Neutrophils (Bld) [#/Vol] 12.77 10*3/uL High 1.57 - 6.19 K/uL [facility] Nucleated RBC/100 WBC (Bld) [Ratio] 0.0 % <=0.2 /100 WBC [facility] Platelet mean volume (Bld) [Entitic vol] 9.9 fL 8.7 - 12.3 fL [facility] Platelets (Bld) [#/Vol] 250 10*3/uL 146 - 337 K/uL [facility] RBC (Bld) [#/Vol] 5.17 10*6/uL [facility] Segmented neutrophils/100 WBC (Bld) 80.8 % [facility] WBC (Bld) [#/Vol] 15.81 10*3/uL High 3.73 - 10 .10 K/uL [facility] CBC AUTO DIFFon 05-15-2022 BASO # 0.0 103/ul Normal 0.0-0.1 [facility] Comment on above: Performed By: #### C BC #### [facility] [address] [address] [address] Dwight Waters Basophils/100 WBC (Bld) 0.3 % Normal 0.2-2.0 [facility] Comment on above: Performed By: #### C BC #### [facility] [address] [place] [address] Dr. Dwight Waters EO # 0.1 103/ul Normal 0.0-0.7 [facility] Comment on above: Performed By: #### C BC #### [facility] [address] [place] [address] Dr. Dwight Waters Eosinophils/100 WBC (Bld) 0.8 % Critically low 0.9-7.0 [facility] Comment on above: Performed By: #### C BC #### [facility] [address] [place] [address] Dr. Dwight Waters Erythrocyte distribution width (RBC) [Ratio] 12.7 % Normal 11.0-15.0 [facility] Comment on above: Performed By: #### C BC #### [facility] [address] [place] [address] Dr. Dwight Waters Hematocrit (Bld) [Volume fraction] 43.5 % Normal 42.0-54.0 [facility] Comment on above: Performed By: #### C BC #### [facility] [address] [place] [address] Dr. Dwight Waters Hemoglobin (Bld) [Mass/Vol] 14.4 g/dL Normal 14.0-18.0 [facility] Comment on above: Performed By: #### C BC #### [facility] [address] [place] [address] Dr. Dwight Waters IG # 0.02 10e3/ul Normal 0.00-0.03 [facility] Comment on above: Performed By: #### C BC #### [facility] [address] [place] [address] Dr. Dwight Waters IG % 0.2 % Normal 0.0-0.5 [facility] Comment on above: Performed By: #### C BC #### [facility] [address] [place] [address] Dr. Dwight Waters LYMPH # 1.5 103/ul Normal 1.2-3.8 [facility] Comment on above: Performed By: #### C BC #### [facility] [address] [place] [address] Dr. Dwight Waters Lymphocytes/100 WBC (Bld) 12.5 % Critically low 20.5-60.0 [facility] Comment on above: Performed By: #### C BC #### [facility] [address] [place] [address] Dr. Dwight Waters MANUAL DIFF REQ NO Normal [facility] Comment on above: Performed By: #### C BC #### [facility] [address] [place] [address] Dr. Dwight Waters MCH (RBC) [Entitic mass] 28.6 pg Normal 25.9-34.0 [facility] Comment on above: Performed By: #### C BC #### [facility] [address] [place] [address] Dr. Dwight Waters MCHC (RBC) [Mass/Vol] 33.1 g/dL Normal 29.9-35.2 [facility] Comment on above: Performed By: #### C BC #### [facility] [address] [place] [address] Dr. Dwight Waters MCV (RBC) [Entitic vol] 86.3 fL Normal 80.0-94.0 [facility] Comment on above: Performed By: #### C BC #### [facility] [address] [place] [address] Dr. Dwight Waters MONO # 1.0 103/ul Critically high 0.3-0.8 [facility] Comment on above: Performed By: #### C BC #### [facility] [address] [place] [address] Dr. Dwight Waters Monocytes/100 WBC (Bld) 8.2 % Normal 1.7-12.0 [facility] Comment on above: Performed By: #### C BC #### [facility] [address] [place] [address] Dr. Dwight Waters NEUT # 9.1 103/ul Critically high 1.4-6.5 [facility] Comment on above: Performed By: #### C BC #### [facility] [address] [address] [address] Dwight Waters Neutrophils/100 WBC (Bld) 78.0 % Critically high 43.0-75.0 [facility] Comment on above: Performed By: #### C BC #### [facility] [address] [address] [address] Dwight Waters Platelet mean volume (Bld) [Entitic vol] 9.8 fL Normal 9.5-13.5 [facility] Comment on above: Performed By: #### C BC #### [facility] [address] [address] [address] Dwight Waters PLT 251 103/ul Normal 150-450 [facility] Comment on above: Performed By: #### C BC #### [facility] [address] [address] [address] Dwight Waters RBC 5.04 106/ul Normal 4.70-6.10 [facility] Comment on above: Performed By: #### C BC #### [facility] [address] [address] [address] Dwight Waters WBC 11.6 103/ul Critically high 4.0-11.0 [facility] Comment on above: Performed By: #### C BC #### [facility] [address] [address] [address] Dwight Waters CHEM 6 (LYTES, BUN CREA)on 0 05-15-2022 Anion gap [Moles/Vol] 12 mmol/L 7 - 17 mmol/L [facility] Chloride [Moles/Vol] 105 mmol/L 98 - 10 8 mmol/L [facility] CO2 [Moles/Vol] 26 mmol/L 21 - 31 mmol/L [facility] Creatinine [Mass/Vol] 2.85 mg/dL High 0.70 - 1.30 mg/dL [facility] GFR/1.73 sq M.predicted CKD-EPI (S/P/Bld) [Vol rate/Area] 26 Low >=60 mL/min/1.73m 2 [facility] Comment on above: Reported eGFR is bas ed on the CKD-EPI 2020 equation using creatinine, age, and sex. Potassium [Moles/Vol] 4.6 mmol/L 3.5 - 5.0 mmol/L [facility] Sodium [Moles/Vol] 138 mmol/L 135 - 145 mmol/L [facility] Urea nitrogen [Mass/Vol] 32 mg/dL High 7 - 25 mg/dL [facility] Urea nitrogen/Creatinine [Mass ratio] 11 mg/mg [facility] CT ABD/PELVIS WO CONon 05-15 CT ABD/PELVIS [...] transplanted kidney with moderate right-sided hydronephrosis. Atrophic [place] kidneys with moderate right-sided hydronephrosis. Multiple nonobstructive [...] transplanted kidney with moderate right-sided hydronephrosis. Atrophic [place] kidneys with moderate right-sided hydronephrosis. Multiple nonobstructive right renal calculi measuring up to 8 mm. FOLLOW-UP: Follow-up as clinically indicated. Electronically authenticated by: LYNDSAY JEAN Date: 2022-05-15 05:04 Normal [facility] Covid-19 PCR (CVDTBH)on 04-30 SARS-CoV-2 (COVID-19) RNA ESTELITA+probe Ql (Unsp spec) Not detected Normal NOT DETECTED [facility] Comment on above: Result Comment: When [...] for this test is supported by the [place] of Health and Human Service's declaration that [...] Performed By: #### U RTPCR #### [facility] [address] [place] [address] Dr. Dwight Waters GLUCOSEon 05-15-2022 Glucose [Mass/Vol] 141 mg/dL High 70 - 99 mg/dL [facility] GOLD TOP TUBEon 05-15-2022 [facility] HEPATIC FUNCTION PANELon Albumin [Mass/Vol] 4.3 g/dL 3.5 - 5.0 g/dL [facility] ALP [Catalytic activity/Vol] 85 U/L 32 - 126 U/L [facility] ALT [Catalytic activity/Vol] 13 U/L 10 - 52 U/L [facility] AST [Catalytic activity/Vol] 15 U/L 10 - 39 U/L [facility] Bilirubin [Mass/Vol] 0.8 mg/dL <1.5 [facility] Bilirubin.direct [Mass/Vol] 0.2 mg/dL <0.3 [facility] Interpretation and review of laboratory results Normal [facility] Protein [Mass/Vol] 7.3 g/dL 6.4 - 8.3 g/dL [facility] LIPASEon 05-15-2022 Lipase [Catalytic activity/Vol] 8 U/L Low 11 - 82 U/L [facility] No Panel Informationon 05-15 Interpretation and review of laboratory results Abnormal [facility] PROF 14(COMP METB)on 022 Albumin [Mass/Vol] 3.8 g/dL Normal 3.4-5.0 [facility] Comment on above: Performed By: #### U RTPCR #### [facility] [address] [address] [address] Dwight Waters Albumin/Globulin [Mass ratio] 1.1 {ratio} Normal [facility] Comment on above: Performed By: #### U RTPCR #### [facility] [address] [place] [address] Dr. Dwight Waters ALP [Catalytic activity/Vol] 92 U/L Normal 46-116 [facility] Comment on above: Performed By: #### U RTPCR #### [facility] [address] [address] [address] Dwight Waters ALT [Catalytic activity/Vol] 25 U/L Normal 16-63 [facility] Comment on above: Performed By: #### U RTPCR #### [facility] [address] [address] [address] Dwight Waters Anion gap [Moles/Vol] 14.6 mmol/L Normal [facility] Comment on above: Performed By: #### U RTPCR #### [facility] [address] [address] [address] Dwight Waters AST [Catalytic activity/Vol] 17 U/L Normal 15-37 [facility] Comment on above: Performed By: #### U RTPCR #### [facility] [address] [address] [address] Dwight Waters Bilirubin [Mass/Vol] 0.6 mg/dL Normal 0.2-1.0 [facility] Comment on above: Performed By: #### U RTPCR #### [facility] [address] [address] [address] Dwight Waters Calcium [Mass/Vol] 9.9 mg/dL Normal 8.5-10.1 [facility] Comment on above: Performed By: #### U RTPCR #### [facility] [address] [address] [address] Dwight Waters Chloride [Moles/Vol] 106 mmol/L Normal 98-107 [facility] Comment on above: Performed By: #### U RTPCR #### [facility] [address] [address] [address] Dwight Waters CO2 [Moles/Vol] 24.2 mmol/L Normal 21.0-32.0 [facility] Comment on above: Performed By: #### U RTPCR #### [facility] [address] [place] [address] Dr. Dwight Waters Creatinine [Mass/Vol] 1.58 mg/dL Critically high 0.70-1.30 [facility] Comment on above: Performed By: #### U RTPCR #### [facility] [address] [address] [address] Dwight Waters EGFR-AF [place]UR[place] AND [place] 56 mL/min/1.73m2 Critically low >=60 [facility] Comment on above: Performed By: #### U RTPCR #### [facility] [address] [place] [address] Dr. Dwight Waters EGFR-NON AF TURKS AND [place] 46 mL/min/1.73m2 Critically low >=60 [facility] Comment on above: Performed By: #### U RTPCR #### [facility] [address] [address] [address] Dwight Waters Globulin (S) [Mass/Vol] 3.5 g/dL Normal [facility] Comment on above: Performed By: #### U RTPCR #### [facility] [address] [address] [address] Dwight Waters Glucose [Mass/Vol] 162 mg/dL Critically high 74-106 [facility] Comment on above: Performed By: #### U RTPCR #### [facility] [address] [address] [address] Dwight Waters Potassium [Moles/Vol] 3.8 mmol/L Normal 3.5-5.1 [facility] Comment on above: Performed By: #### U RTPCR #### [facility] [address] [address] [address] Dwight Waters Protein [Mass/Vol] 7.3 g/dL Normal 6.4-8.2 [facility] Comment on above: Performed By: #### U RTPCR #### [facility] [address] [address] [address] Dwight Waters Sodium [Moles/Vol] 141 mmol/L Normal 136-145 [facility] Comment on above: Performed By: #### U RTPCR #### [facility] [address] [address] [address] Dwight Waters Urea nitrogen [Mass/Vol] 22.0 mg/dL Critically high 7.0-18.0 [facility] Comment on above: Performed By: #### U RTPCR #### [facility] [address] [address] [address] Dwight Waters Urea nitrogen/Creatinine [Mass ratio] 13.9 mg/mg Normal [facility] Comment on above: Performed By: #### U RTPCR #### [facility] [address] [address] [address] Dwight Waters Portable XR Chest Viewson [...] chest. IMPRESSION IMPRESSION: No acute cardiopulmonary disease [facility] Radiology Study observation (narrative) [facility] Portable XR Chest ViewsOrder ed By: Vladislav Omer on 05-15-2022 [facility] URINE DIPSTICK; REFLEX MICRO SCOPY; REFLEX CULTURE PERFORMABLEon 05-15-2022 Appearance (U) Clear Clear [facility] Color (U) Yellow Yellow [facility] Glucose Test strip (U) [Mass/Vol] 100 mg/dL Abnormal Negative [facility] Interpretation and review of laboratory results Abnormal [facility] Ketones (U) [Mass/Vol] Negative Negative [facility] Leukocyte esterase Test strip Ql (U) Large Abnormal Negative [facility] Nitrite Ql (U) Negative Negative [facility] pH (U) 6.0 [pH] 5.0 - 7.0 [facility] Protein (U) [Mass/Vol] 100 mg/dL Abnormal Negative [facility] RBC (U) [#/Vol] Large Abnormal Negative [facility] Specific gravity (U) [Rel density] 1.010 [facility] Urobilinogen (U) [Mass/Vol] 0.2 E.U./dL 0.2 E.U/dL, 1.0 E.U/dL [facility] URINE MICROSCOPIC WITH REFLE X TO CULTUREOrdered By: Rey Bro on 05-15-2022 Bacteria LM Ql (Urine sed) ABSENT ABSENT [facility] Epithelial cells.squamous LM Ql (Urine sed) ABSENT 1/hpf = 1+, 2-5/hpf = 2+, 0/hpf = 0+, ABSENT [facility] Interpretation and review of laboratory results Abnormal [facility] RBC LM.HPF (Urine sed) [#/Area] /[HPF] Abnormal 0 - 2 /HPF [facility] WBC LM.HPF (Urine sed) [#/Area] 10-20 Abnormal 0 - 5 /HPF [facility] CT ABD/PELVIS WO CONon 05-12 CT ABD/PELVIS WO CON Begin Addendum #[address] Lund 3:25 PM EST 05/11/2022. Begin Addendum #2 IMPRESSION below should also contain the followin. 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 The [place] kidneys are progressively atrophic bilaterally compared to [...] of 06/14/2020 are no longer present. The [place] distal right ureter is decompressed beyond this [...] with surgical history for renal graft and [place] right urinary drainage, as a discrete ureteroneocystostomy is not identified, and the graft may be draining via a ureteroureterostomy. Urology consultation recommended. 3. The [place] kidneys are bilaterally atrophic, with right renal sinus calcifications consistent with nonobstructing right [place] renal calculi up to 6 mm. Normal [facility] CBC AUTO DIFFon 05-11-2022 BASO # 0.1 103/ul Normal 0.0-0.1 [facility] Comment on above: Performed By: #### U RTPCR #### [facility] [address], [place] [address] Dr. Dwight Waters Basophils/100 WBC (Bld) 0.8 % Normal 0.2-2.0 [facility] Comment on above: Performed By: #### U RTPCR #### [facility] [address], [place] [address] Dr. Dwight Waters EO # 0.2 103/ul Normal 0.0-0.7 [facility] Comment on above: Performed By: #### U RTPCR #### [facility] [address] [place] [address] Dr. Dwight Waters Eosinophils/100 WBC (Bld) 2.5 % Normal 0.9-7.0 [facility] Comment on above: Performed By: #### U RTPCR #### [facility] [address] [place] [address] Dr. Dwight Waters Erythrocyte distribution width (RBC) [Ratio] 12.5 % Normal 11.0-15.0 [facility] Comment on above: Performed By: #### U RTPCR #### [facility] [address] [place] [address] Dr. Dwight Waters Hematocrit (Bld) [Volume fraction] 48.3 % Normal 42.0-54.0 [facility] Comment on above: Performed By: #### U RTPCR #### [facility] [address] [place] [address] Dr. Dwight Waters Hemoglobin (Bld) [Mass/Vol] 15.3 g/dL Normal 14.0-18.0 [facility] Comment on above: Performed By: #### U RTPCR #### [facility] [address] [place] [address] Dr. Dwight Waters IG # 0.01 10e3/ul Normal 0.00-0.03 [facility] Comment on above: Performed By: #### U RTPCR #### [facility] [address] [place] [address] Dr. Dwight Waters IG % 0.2 % Normal 0.0-0.5 [facility] Comment on above: Performed By: #### U RTPCR #### [facility] [address] [place] [address] Dr. Dwight Waters LYMPH # 1.9 103/ul Normal 1.2-3.8 [facility] Comment on above: Performed By: #### U RTPCR #### [facility] [address] [place] [address] Dr. Dwight Waters Lymphocytes/100 WBC (Bld) 29.8 % Normal 20.5-60.0 [facility] Comment on above: Performed By: #### U RTPCR #### [facility] [address] [place] [address] Dr. Dwight Waters MANUAL DIFF REQ NO Normal [facility] Comment on above: Performed By: #### U RTPCR #### [facility] [address] [place] [address] Dr. Dwight Waters MCH (RBC) [Entitic mass] 28.2 pg Normal 25.9-34.0 [facility] Comment on above: Performed By: #### U RTPCR #### [facility] [address] [place] [address] Dr. Dwight Waters MCHC (RBC) [Mass/Vol] 31.7 g/dL Normal 29.9-35.2 [facility] Comment on above: Performed By: #### U RTPCR #### [facility] [address] [place] [address] Dr. Dwight Waters MCV (RBC) [Entitic vol] 89.1 fL Normal 80.0-94.0 [facility] Comment on above: Performed By: #### U RTPCR #### [facility] [address] [place] [address] Dr. Dwight Waters MONO # 0.6 103/ul Normal 0.3-0.8 [facility] Comment on above: Performed By: #### U RTPCR #### [facility] [address] [place] [address] Dr. Dwight Waters Monocytes/100 WBC (Bld) 9.0 % Normal 1.7-12.0 [facility] Comment on above: Performed By: #### U RTPCR #### [facility] [address] [place] [address] Dr. Dwight Waters NEUT # 3.6 103/ul Normal 1.4-6.5 [facility] Comment on above: Performed By: #### U RTPCR #### [facility] [address] [place] [address] Dr. Dwight Waters Neutrophils/100 WBC (Bld) 57.7 % Normal 43.0-75.0 [facility] Comment on above: Performed By: #### U RTPCR #### [facility] [address] [place] [address] Dr. Dwight Waters Platelet mean volume (Bld) [Entitic vol] 9.9 fL Normal 9.5-13.5 [facility] Comment on above: Performed By: #### U RTPCR #### [facility] [address] [place] [address] Dr. Dwight Waters PLT 249 103/ul Normal 150-450 [facility] Comment on above: Performed By: #### U RTPCR #### [facility] [address] [place] [address] Dr. Dwight Waters RBC 5.42 106/ul Normal 4.70-6.10 [facility] Comment on above: Performed By: #### U RTPCR #### [facility] [address] [place] [address] Dr. Dwight Waters WBC 6.3 103/ul Normal 4.0-11.0 [facility] Comment on above: Performed By: #### U RTPCR #### [facility] [address] [place] [address] Dr. Dwight Waters ER URINE PROFILEon 2 Bilirubin Ql (U) Unable to perform te sting due to color interference. Abnormal NEGATIVE [facility] Comment on above: Performed By: #### U RTPCR #### [facility] [address] [place] [address] Dr. Dwight Waters Clarity (U) TURBID Abnormal CLEAR [facility] Comment on above: Performed By: #### U RTPCR #### [facility] [address] [place] [address] Dr. Dwight Waters Color (U) RED Abnormal YELLOW [facility] Comment on above: Performed By: #### U RTPCR #### [facility] [address] [place] [address] Dr. Dwight Waters ERUAHD A micrscopic examina tion will be performed if indicated. Normal [facility] Comment on above: Performed By: #### U RTPCR #### [facility] [address] [place] [address] Dr. Dwight Waters Glucose Ql (U) Unable to perform te sting due to color interference. Abnormal NEGATIVE [facility] Comment on above: Performed By: #### U RTPCR #### [facility] [address] [place] [address] Dr. Dwight Waters Hemoglobin Ql (U) Unable to perform te sting due to color interference. Abnormal NEGATIVE [facility] Comment on above: Performed By: #### U RTPCR #### [facility] [address] [place] [address] Dr. Dwight Waters Ketones Ql (U) Unable to perform te sting due to color interference. Abnormal NEGATIVE [facility] Comment on above: Performed By: #### U RTPCR #### [facility] [address] [place] [address] Dr. Dwight Waters LEUKOCYTES Unable to perform te sting due to color interference. Abnormal NEGATIVE [facility] Comment on above: Performed By: #### U RTPCR #### [facility] [address] [place] [address] Dr. Dwight Waters Nitrite Ql (U) Unable to perform te sting due to color interference. Abnormal NEGATIVE [facility] Comment on above: Performed By: #### U RTPCR #### [facility] [address] [place] [address] Dr. Dwight Waters pH (U) 6.5 [pH] Normal 5-9 [facility] Comment on above: Performed By: #### U RTPCR #### [facility] [address] [place] [address] Dr. Dwight Waters SPEC GRAVITY 1.020 Normal 1.005-<=1.02 5 [facility] Comment on above: Performed By: #### U RTPCR #### [facility] [address] [place] [address] Dr. Dwight Waters UA PROTEIN Unable to perform te sting due to color interference. Normal NEGATIVE/ TRACE [facility] Comment on above: Performed By: #### U RTPCR #### [facility] [address] [place] [address] Dr. Dwight Waters UR MICRO IND INDICATED Normal [facility] Comment on above: Performed By: #### U RTPCR #### [facility] [address] [place] [address] Dr. Dwight Waters UROBILINOGEN Unable to perform te sting due to color interference. Normal 0.2 - 1.0 [facility] Comment on above: Performed By: #### U RTPCR #### [facility] [address] [place] [address] Dr. Dwight Waters PROF 14(COMP METB)on 022 Albumin [Mass/Vol] 3.8 g/dL Normal 3.4-5.0 [facility] Comment on above: Performed By: #### C MP #### [facility] [address] [place] [address] Dr. Dwight Waters Albumin/Globulin [Mass ratio] 1.1 {ratio} Normal [facility] Comment on above: Performed By: #### C MP #### [facility] [address] [place] [address] Dr. Dwight Waters ALP [Catalytic activity/Vol] 106 U/L Normal 46-116 [facility] Comment on above: Performed By: #### C MP #### [facility] [address] [place] [address] Dr. Dwight Waters ALT [Catalytic activity/Vol] 30 U/L Normal 16-63 [facility] Comment on above: Performed By: #### C MP #### [facility] [address] [place] [address] Dr. Dwight Waters Anion gap [Moles/Vol] 11.7 mmol/L Normal [facility] Comment on above: Performed By: #### C MP #### [facility] [address] [place] [address] Dr. Dwight Waters AST [Catalytic activity/Vol] 16 U/L Normal 15-37 [facility] Comment on above: Performed By: #### C MP #### [facility] [address] [place] [address] Dr. Dwight Waters Bilirubin [Mass/Vol] 0.6 mg/dL Normal 0.2-1.0 [facility] Comment on above: Performed By: #### C MP #### [facility] [address] [place] [address] Dr. Dwight Waters Calcium [Mass/Vol] 9.1 mg/dL Normal 8.5-10.1 [facility] Comment on above: Performed By: #### C MP #### [facility] [address] [place] [address] Dr. Dwight Waters CO2 [Moles/Vol] 27.4 mmol/L Normal 21.0-32.0 [facility] Comment on above: Performed By: #### C MP #### [facility] [address] [place] [address] Dr. Dwight Waters Creatinine [Mass/Vol] 1.18 mg/dL Normal 0.70-1.30 [facility] Comment on above: Performed By: #### C MP #### [facility] [address] [place] [address] Dr. Dwight Waters EGFR-AF TURKS AND [place] ISLANDER >60 Normal >=60 [facility] Comment on above: Performed By: #### C MP #### [facility] [address] [place] [address] Dr. Dwight Waters EGFR-NON AF TURKS AND [place] ISLANDER >60 Normal >=60 [facility] Comment on above: Performed By: #### C MP #### [facility] [address] [place] [address] Dr. Dwight Waters Globulin (S) [Mass/Vol] 3.6 g/dL Normal [facility] Comment on above: Performed By: #### C MP #### [facility] [address] [place] [address] Dr. Dwight Waters Glucose [Mass/Vol] 192 mg/dL Critically high 74-106 [facility] Comment on above: Performed By: #### C MP #### [facility] [address] [place] [address] Dr. Dwight Waters Potassium [Moles/Vol] 4.1 mmol/L Normal 3.5-5.1 [facility] Comment on above: Performed By: #### C MP #### [facility] [address] [place] [address] Dr. Dwight Waters Protein [Mass/Vol] 7.4 g/dL Normal 6.4-8.2 [facility] Comment on above: Performed By: #### C MP #### [facility] [address] [place] [address] Dr. Dwight Waters Sodium [Moles/Vol] 142 mmol/L Normal 136-145 [facility] Comment on above: Performed By: #### C MP #### [facility] [address] [place] [address] Dr. Dwight Waters Urea nitrogen [Mass/Vol] 17.0 mg/dL Normal 7.0-18.0 [facility] Comment on above: Performed By: #### C MP #### [facility] [address] [place] [address] Dr. Dwight Waters Urea nitrogen/Creatinine [Mass ratio] 14.4 mg/mg Normal [facility] Comment on above: Performed By: #### C MP #### [facility] [address] [place] [address] Dr. Dwight Waters URINE MICROSCOPIC ONLYon BACTERIA NONE SEEN Normal NONE SEEN [facility] Comment on above: Performed By: #### U RTPCR #### [facility] [address] [place] [address] Dr. Dwight Waters Bacteria identified Cx Nom (U) NOT INDICATED Normal [facility] Comment on above: Performed By: #### U RTPCR #### [facility] [address] [place] [address] Dr. Dwight Waters CAST NONE SEEN Normal NONE SEEN [facility] Comment on above: Performed By: #### U RTPCR #### [facility] [address] [place] [address] Dr. Dwight Waters Crystals LM Nom (Urine sed) NONE SEEN Normal NONE SEEN [facility] Comment on above: Performed By: #### U RTPCR #### [facility] [address] [place] [address] Dr. Dwight Waters Epithelial cells LM Ql (Urine sed) RARE Normal NONE SEEN /RARE [facility] Comment on above: Performed By: #### U RTPCR #### [facility] [address] [address] [address] Dwight Waters MUCOUS NONE SEEN Normal NONE SEEN [facility] Comment on above: Performed By: #### U RTPCR #### [facility] [address] [address] [address] Dwight Waters RBC (U) [#/Vol] /uL Abnormal 0-2 [facility] Comment on above: Performed By: #### U RTPCR #### [facility] [address] [address] [address] Dwight Waters WBC NONE SEEN Normal NONE SEEN [facility] Comment on above: Performed By: #### U RTPCR #### [facility] [address] [place] [address] Dr. Dwight Waters K (Potassium)on 01-06-2020 Potassium [Moles/Vol] 4.4 mmol/L Normal 3.7-5.3 [facility] Comment on above: Performed By: #### K #### [facility] [place] [facility] [address] [place] [address] Consumer Safety Inspector: Kehinde Woodward MD Potassiumon 01-06-2020 Potassium [Moles/Vol] 4.4 mmol/L 3.7 - 5.3 mmol/L [facility] Work Phone: Hemoglobin and Hematocrit, B loodon 10-24-2019 Hematocrit (Bld) [Volume fraction] 23.6 % Low 40.7 - 50.3 % [place], [place] Hemoglobin (Bld) [Mass/Vol] 7.3 g/dL Low 13 - 17 g/dL [place] Interpretation and review of laboratory results Abnormal [place] Hgb/Hcton 10-24-2019 Hematocrit (Bld) [Volume fraction] 23.6 % Low 40.7-50.3 [facility] Comment on above: Performed By: #### H H #### [facility] [place] [facility] [address] [place] [address] Consumer Safety Inspector: Kehinde Woodward MD Hemoglobin (Bld) [Mass/Vol] 7.3 g/dL Low 13.0-17.0 [facility] Comment on above: Performed By: #### H H #### [facility] [place] [facility] [address] [place] [address] Consumer Safety Inspector: Kehinde Woodward MD Hemoglobinon 08-27-2019 Hemoglobin (Bld) [Mass/Vol] 7.5 g/dL Low 13.0-17.0 [facility] Comment on above: Performed By: #### H GB #### [facility] [place] [facility] [address] [place], [place] [id number] Consumer Safety Inspector: Kehinde Woodward MD Hemoglobin (Bld) [Mass/Vol] 7.5 g/dL Low 13 - 17 g/dL [place] Interpretation and review of laboratory results Abnormal [place] Hemoglobinon 08-08-2019 Hemoglobin (Bld) [Mass/Vol] 8.3 g/dL Low 13.0-17.0 [facility] Comment on above: Performed By: #### H GB #### [facility] [place] [facility] [address] [place] [address] Consumer Safety Inspector: Kehinde Woodward MD Hemoglobin (Bld) [Mass/Vol] 8.3 g/dL Low 13 - 17 g/dL [place] Interpretation and review of laboratory results Abnormal [place] Hemoglobinon 08-04-2019 Hemoglobin (Bld) [Mass/Vol] 8.0 g/dL Low 13.0-17.0 [facility] Comment on above: Performed By: #### H GB #### [facility] [place] [facility] [address] [place], [place] [id number] Consumer Safety Inspector: Kehinde Woodward MD Hemoglobin A1Con 08-03-2019 HbA1c (Bld) [Mass fraction] % Low 4.8-5.9 [facility] Comment on above: Result Comment: The ADA and AACC recommend providing the estimated average glucose result to permit better patient understanding of their HBA1c result. Performed By: #### G LYHGB #### [facility] [place] [facility] [address] [place] [address] Consumer Safety Inspector: Kehinde Woodward MD Glucose [Mass/Vol] mg/dL mg/dL [place], [place] Comment on above: The ADA and AACC rec ommend providing the estimated average glucose result to permit better patient understanding of their HBA1c result. HbA1c (Bld) [Mass fraction] % Low 4.8 - 5.9 % [place] Interpretation and review of laboratory results Abnormal [place] Hemoglobinon 08-01-2019 Hemoglobin (Bld) [Mass/Vol] 8.1 g/dL Low 13.0-17.0 [facility] Comment on above: Performed By: #### H GB #### [facility] [place] [facility] [address] [place] [address] Consumer Safety Inspector: Kehinde Woodward MD Hemoglobin (Bld) [Mass/Vol] 8.1 g/dL Low 13 - 17 g/dL [place] Interpretation and review of laboratory results Abnormal [place] Hgb/Hcton 06-10-2019 Hematocrit (Bld) [Volume fraction] 24.3 % Low 40.7-50.3 [facility] Comment on above: Performed By: #### H H #### [facility] [place] [facility] [address] [place] [address] [place] [address] Consumer Safety Inspector: Kehinde Woodward MD Hemoglobin (Bld) [Mass/Vol] 7.4 g/dL Low 13.0-17.0 [facility] Comment on above: Performed By: #### H H #### [facility] [place] [facility] [address] [place] [address] Consumer Safety Inspector: Kehinde Woodward MD Hemoglobinon 06-01-2019 Hemoglobin (Bld) [Mass/Vol] 7.2 g/dL Low 13.0-17.0 [facility] Comment on above: Performed By: #### H GB #### [facility] [place] [facility] [address] [place] [address] Consumer Safety Inspector: Kehinde Woodward MD K (Potassium)on 01-14-2019 Potassium [Moles/Vol] 3.6 mmol/L Low 3.7-5.3 [facility] Comment on above: Performed By: #### K #### [facility] [place] [facility] [address] [place] [address] Consumer Safety Inspector: Kehinde Woodward MD Otheron 10-19-2018 IMPRESSION: 1. [...] characteristics determined by Toxicology Laboratory at [facility]. It has not been cleared or [...] Amitriptyline(50), Amphetamine(250), Atenolol(500), Barbiturates(1000), Benzoylecgonine(50), Buprenorphine(50), Bupropion(25), Caffeine(92752), Chlordiazepoxide(50), Chlorpheniramine(100), Chlorpromazine(50), Citalopram(100), Clonazepam(200), Cocaine(25), Codeine(200), [...] Screen method NONE DETECTED Invalid Interpretation Shira LOIUS, [facility] TOXICOLOGY SCREEN URINE - [facility] Drugs identified Screen Nom (U) For Medical Purposes Only, Non-forensic, screen results are presumptive. No confirmatory testing will follow. Invalid Interpretation Code LAB, [facility] Comment on above: This Liquid Chromato graphy Mass Spectrometry (LC/MS/MS) test was developed and its performance characteristics determined by Toxicology Laboratory at [facility]. It has not been cleared or [...] Amitriptyline(50), Amphetamine(250), Atenolol(500), Barbiturates(200), Benzoylecgonine(50), Buprenorphine(500), Bupropion(25), Caffeine(94128), Cannabinoids(THC)(50), Chlordiazepoxide(50), Chlorpheniramine(100), Chlorpromazine(50), Citalopram(100), Clonazepam(200), Cocaine(25), [...] index (BMI) [Ratio] 29.43 kg/m2 Rebeca Gutierrez [employer] Work Phone: [facility] 06-17-2024 08:37-0400 Body temperature 97.39 [degF] Rebeca Gutierrez [employer] Work Phone: [facility] 06-17-2024 08:37-0400 Body weight 85.23 kg Rebeca Gutierrez [employer] Work Phone: [facility] 06-17-2024 08:37-0400 Diastolic blood pressure 75 mm[Hg] Rebeca Gutierrez [employer] Work Phone: [facility] 06-17-2024 08:37-0400 Heart rate 53 /min Rebeca Gutierrez [employer] Work Phone: [facility] 06-17-2024 08:37-0400 Systolic blood pressure 143 mm[Hg] Rebeca Gutierrez [employer] Work Phone: [facility] 06-17-2024 08:36-0400 Body mass index (BMI) [Ratio] 29.43 kg/m2 Daisha Sobotka DO Work Phone: [facility] 06-17-2024 08:36-0400 Body temperature 97.39 [degF] Daisha Sobotka DO Work Phone: [facility] 06-17-2024 08:36-0400 Body weight 85.23 kg Daisha Sobotka DO Work Phone: [facility] 06-17-2024 08:36-0400 Diastolic blood pressure 75 mm[Hg] Daisha Max DO Work Phone: [facility] 06-17-2024 08:36-0400 Heart rate 53 /min Daisha Max DO Work Phone: [facility] 06-17-2024 08:36-0400 Systolic blood pressure 143 mm[Hg] Daisha Max DO Work Phone: [facility] 02-26-2024 09:07-0400 Diastolic blood pressure 56 mm[Hg] Candie Almaguer MD Work Phone: [facility] 02-26-2024 09:07-0400 Heart rate 65 /min Candie Almaguer MD Work Phone: [facility] 02-26-2024 09:07-0400 Systolic blood pressure 113 mm[Hg] Candie Almaguer MD Work Phone: [facility] 02-26-2024 09:06-0400 Body height 170.2 cm Candie Almaguer MD Work Phone: [facility] 02-26-2024 09:06-0400 Body mass index (BMI) [Ratio] 28.9 kg/m2 Candie Almaguer MD Work Phone: [facility] 02-26-2024 09:06-0400 Body weight 83.69 kg Candie Almaguer MD Work Phone: [facility] 02-26-2024 09:06-0400 Respiratory rate 20 /min Candie Almaguer MD Work Phone: [facility] 02-26-2024 09:06-0400 SaO2% (BldA) [Mass fraction] 97 % Candie Almaguer MD Work Phone: [facility] 01-23-2024 15:04-0500 Body temperature 97.9 [degF] Kevin Sage MD Work Phone: [facility] 01-23-2024 15:04-0500 Diastolic blood pressure 67 mm[Hg] Kevin Sage MD Work Phone: [facility] 01-23-2024 15:04-0500 Heart rate 51 /min Kevin Sage MD Work Phone: [facility] 01-23-2024 15:04-0500 Respiratory rate 16 /min Kevin Sage MD Work Phone: [facility] 01-23-2024 15:04-0500 SaO2% (BldA) [Mass fraction] 94 % Kevin Sage MD Work Phone: [facility] 01-23-2024 15:04-0500 Systolic blood pressure 151 mm[Hg] Kevin Sage MD Work Phone: [facility] 01-23-2024 10:46-0500 Body mass index (BMI) [Ratio] 30.94 kg/m2 Kevin Sage MD Work Phone: [facility] 01-23-2024 10:46-0500 Body weight 89.6 kg Kevin Sage MD Work Phone: [facility] 01-18-2024 11:21-0500 Body height 170.2 cm Kevin Sage MD Work Phone: [facility] 01-06-2024 09:04-0500 Body height 170.2 cm Zuly Bruno [employer]ATRE INSTRUCTOR Work Phone: [facility] 01-06-2024 09:04-0500 Body mass index (BMI) [Ratio] 32.42 kg/m2 Zuly Bruno THEATRE INSTRUCTOR Work Phone: [facility] 01-06-2024 09:04-0500 Body temperature 97.81 [degF] Zuly Owenhholz THEATRE INSTRUCTOR Work Phone: [facility] 01-06-2024 09:04-0500 Body weight 93.89 kg Zuly Kristopherhholz THEATRE INSTRUCTOR Work Phone: [facility] 01-06-2024 09:04-0500 Diastolic blood pressure 70 mm[Hg] Zuly Aichholz THEATRE INSTRUCTOR Work Phone: [facility] 01-06-2024 09:04-0500 Heart rate 95 /min Zuly Aichholz THEATRE INSTRUCTOR Work Phone: [facility] 01-06-2024 09:04-0500 Respiratory rate 17 /min Zuly Aichholz THEATRE INSTRUCTOR Work Phone: [facility] 01-06-2024 09:04-0500 SaO2% (BldA) [Mass fraction] 99 % Zuly Kristopherhholz THEATRE INSTRUCTOR Work Phone: [facility] 01-06-2024 09:04-0500 Systolic blood pressure 138 mm[Hg] Zuly Aichholz THEATRE INSTRUCTOR Work Phone: [facility] 09-11-2023 10:31-0400 Body temperature 97.81 [degF] Steve Yeison MBBS Work Phone: [facility] 09-11-2023 10:31-0400 Diastolic blood pressure 66 mm[Hg] Steve Yeison MBBS Work Phone: [facility] 09-11-2023 10:31-0400 Heart rate 70 /min Stvee Yeison MBBS Work Phone: [facility] 09-11-2023 10:31-0400 Respiratory rate 20 /min Steve Yeison MBBS Work Phone: [facility] 09-11-2023 10:31-0400 SaO2% (BldA) [Mass fraction] 91 % Steve Yeison MBBS Work Phone: [facility] 09-11-2023 10:31-0400 Systolic blood pressure 129 mm[Hg] Steve Yeison MBBS Work Phone: [facility] 09-10-2023 15:50-0400 Body mass index (BMI) [Ratio] 31.99 kg/m2 Steve Yeison MBBS Work Phone: [facility] 09-10-2023 15:50-0400 Body weight 92.67 kg Steve Yeison MBBS Work Phone: [facility] 09-02-2023 07:32-0400 Body height 170.2 cm Steve Yeison MBBS Work Phone: [facility] 08-28-2023 13:33-0400 Body height 170.2 cm Steve Yeison MBBS Work Phone: [facility] 08-28-2023 13:33-0400 Body mass index (BMI) [Ratio] 32.12 kg/m2 Stvee Yeison MBBS Work Phone: [facility] 08-28-2023 13:33-0400 Body temperature 97.3 [degF] Steve Yeison MBBS Work Phone: [facility] 08-28-2023 13:33-0400 Body weight 93.03 kg Steve Yeison MBBS Work Phone: [facility] 08-28-2023 13:33-0400 Diastolic blood pressure 41 mm[Hg] Steve Yeison MBBS Work Phone: [facility] 08-28-2023 13:33-0400 Heart rate 116 /min Steve Yeison MBBS Work Phone: [facility] 08-28-2023 13:33-0400 Systolic blood pressure 106 mm[Hg] Steve Yeison MBBS Work Phone: [facility] 06-12-2023 14:50-0400 Body mass index (BMI) [Ratio] 33.8 kg/m2 Rebeca Gutierrez [employer] Work Phone: [facility] 06-12-2023 14:50-0400 Body temperature 97.3 [degF] Rebeca Gutierrez [employer] Work Phone: [facility] 06-12-2023 14:50-0400 Body weight 97.89 kg Rebeca Gutierrez [employer] Work Phone: [facility] 06-12-2023 14:50-0400 Diastolic blood pressure 77 mm[Hg] Rebeca Gutierrez [employer] Work Phone: [facility] 06-12-2023 14:50-0400 Heart rate 76 /min Rebeca Gutierrez [employer] Work Phone: [facility] 06-12-2023 14:50-0400 Systolic blood pressure 146 mm[Hg] Rebeca Gutierrez [employer]ER Work Phone: [facility] 01-16-2023 08:57-0500 Body height 170.2 cm [facility] Work Phone: [facility] 01-16-2023 08:57-0500 Body mass index (BMI) [Ratio] 33.66 kg/m2 [facility] Work Phone: [facility] 01-16-2023 08:57-0500 Body temperature 97.3 [degF] [facility] Work Phone: [facility] 01-16-2023 08:57-0500 Body weight 97.48 kg [facility] Work Phone: [facility] 01-16-2023 08:57-0500 Diastolic blood pressure 75 mm[Hg] [facility] Work Phone: [facility] 01-16-2023 08:57-0500 Heart rate 76 /min [facility] Work Phone: [facility] 01-16-2023 08:57-0500 Systolic blood pressure 142 mm[Hg] [facility] Work Phone: [facility] 09-10-2022 09:38-0400 Body height 170.2 cm Ryan Yepez MD Work Phone: [facility] 09-10-2022 09:38-0400 Body mass index (BMI) [Ratio] 33.67 kg/m2 Ryan Yepez MD Work Phone: [facility] 09-10-2022 09:38-0400 Body weight 97.52 kg Ryan Yepez MD Work Phone: [facility] 09-10-2022 09:38-0400 Diastolic blood pressure 83 mm[Hg] Ryan Yepez MD Work Phone: [facility] 09-10-2022 09:38-0400 Heart rate 64 /min Ryan Yepez MD Work Phone: [facility] 09-10-2022 09:38-0400 SaO2% (BldA) [Mass fraction] 96 % Ryan Yepez MD Work Phone: [facility] 09-10-2022 09:38-0400 Systolic blood pressure 129 mm[Hg] Ryan Yepez MD Work Phone: [facility] 07-07-2022 13:48-0400 Diastolic blood pressure 76 mm[Hg] Ryan Yepez MD Work Phone: [facility] 07-07-2022 13:48-0400 Heart rate 82 /min Ryan Yepez MD Work Phone: [facility] 07-07-2022 13:48-0400 SaO2% (BldA) [Mass fraction] 96 % Ryan Yepez MD Work Phone: [facility] 07-07-2022 13:48-0400 Systolic blood pressure 141 mm[Hg] Ryan Yepez MD Work Phone: [facility] 06-27-2022 13:32-0400 Body height 170.2 cm Ryan Yepez MD Work Phone: 1(611)191-743588 [address] 06-27-2022 13:32-0400 Body mass index (BMI) [Ratio] 34.24 kg/m2 Ryan Yepez MD Work Phone: 4(590)217-451188 [address] 06-27-2022 13:32-0400 Body temperature 98.6 [degF] Ryan Yepez MD Work Phone: 2(304)042-114288 [address] 06-27-2022 13:32-0400 Body weight 99.16 kg Ryan Yepez MD Work Phone: 2(255)602-908088 [address] 06-27-2022 13:32-0400 Diastolic blood pressure 78 mm[Hg] Ryan Yepez MD Work Phone: [facility] 06-27-2022 13:32-0400 Heart rate 77 /min Ryan Yepez MD Work Phone: 5(266)647-629588 [address] 06-27-2022 13:32-0400 SaO2% (BldA) [Mass fraction] 95 % Ryan Yepez MD Work Phone: [facility] 06-27-2022 13:32-0400 Systolic blood pressure 121 mm[Hg] Ryan Yepez MD Work Phone: [facility] 06-27-2022 10:52-0400 Body height 170.2 cm Rena Brewster RN [facility] 06-27-2022 10:52-0400 Body mass index (BMI) [Ratio] 34.46 kg/m2 Rena Brewster RN [facility] 06-27-2022 10:52-0400 Body temperature 98.2 [degF] Rena Brewster RN [facility] 06-27-2022 10:52-0400 Body weight 99.79 kg Rena Brewster RN [facility] 06-27-2022 10:52-0400 Diastolic blood pressure 73 mm[Hg] Rena Brewster RN [facility] 06-27-2022 10:52-0400 Heart rate 78 /min Rena Brewster RN [facility] 06-27-2022 10:52-0400 Respiratory rate 20 /min Rena Brewster RN [facility] 06-27-2022 10:52-0400 SaO2% (BldA) [Mass fraction] 97 % Rena Brewster RN [facility] 06-27-2022 10:52-0400 Systolic blood pressure 135 mm[Hg] Rena Brewster RN [facility] 06-12-2022 14:23-0400 Body mass index (BMI) [Ratio] 34.59 kg/m2 Steve Farrari MBBS Work Phone: [facility] 06-12-2022 14:23-0400 Body temperature 97 [degF] Steve Yeison MBBS Work Phone: [facility] 06-12-2022 14:23-0400 Body weight 100.2 kg Steve Yeison MBBS Work Phone: [facility] 06-12-2022 14:23-0400 Diastolic blood pressure 66 mm[Hg] Steve Yeison MBBS Work Phone: [facility] 06-12-2022 14:23-0400 Heart rate 63 /min Steve Yeison MBBS Work Phone: [facility] 06-12-2022 14:23-0400 Systolic blood pressure 133 mm[Hg] Steve LEIGH Work Phone: [facility] 05-20-2022 15:21-0400 Body temperature 97.9 [degF] Gian Villatoro MD Work Phone: [facility] 05-20-2022 15:21-0400 Diastolic blood pressure 64 mm[Hg] Gian Villatoro MD Work Phone: [facility] 05-20-2022 15:21-0400 Heart rate 55 /min Gian Villatoro MD Work Phone: [facility] 05-20-2022 15:21-0400 Respiratory rate 15 /min Gian Villatoro MD Work Phone: [facility] 05-20-2022 15:21-0400 SaO2% (BldA) [Mass fraction] 95 % Gian Villatoro MD Work Phone: [facility] 05-20-2022 15:21-0400 Systolic blood pressure 145 mm[Hg] Gian Villatoro MD Work Phone: [facility] 05-19-2022 12:15-0400 Body mass index (BMI) [Ratio] 35.87 kg/m2 Gian Villatoro MD Work Phone: [facility] 05-19-2022 12:15-0400 Body weight 103.92 kg Gian Villatoro MD Work Phone: [facility] Comment on above: standing scale 05-16-2022 16:19-0400 Body height 170.2 cm Gian Villatoro MD Work Phone: [facility] 10-19-2018 08:44-0500 BMI (Body Mass Index) 26.58 kg/m2 [facility] Work Phone: 10-19-2018 08:44-0500 BP Diastolic 76 mm[Hg] [facility] Work Phone: 10-19-2018 08:44-0500 BP Systolic 144 mm[Hg] [facility] Work Phone: 10-19-2018 08:44-0500 Height 172.7 cm [facility] Work Phone: 10-19-2018 08:44-0500 Pulse (Heart Rate) 92 /min [facility] Work Phone: 10-19-2018 08:44-0500 Pulse Oximetry 99 % [facility] Work Phone: 10-19-2018 08:44-0500 Respiratory Rate 16 /min [facility] Work Phone: 10-19-2018 08:44-0500 Weight 79.29 kg [facility] Work Phone: 10-12-2018 09:50-0500 BMI (Body Mass Index) 27.24 kg/m2 [facility] Work Phone: 10-12-2018 09:50-0500 Body Temperature 98.6 [degF] [facility] Work Phone: 10-12-2018 09:50-0500 BP Diastolic 80 mm[Hg] [facility] Work Phone: 10-12-2018 09:50-0500 BP Systolic 157 mm[Hg] [facility] Work Phone: 10-12-2018 09:50-0500 Height 169.5 cm [facility] Work Phone: 10-12-2018 09:50-0500 Pulse (Heart Rate) 94 /min [facility] Work Phone: 10-12-2018 09:50-0500 Weight 78.29 kg [facility] Work Phone: Encounters Encounter Date Encounter Type Care Provider Facility Start: 06-23-2024 End: 06-23-2024 ambulatory [facility]eka [facility]oz [facility] Start: 06-23-2024 End: 06-23-2024 Patient encounter procedure Meka Munoz [facility] [place] Start: 06-17-2024 End: 06-17-2024 Office outpatient visit 25 minutes Daisha Max DO Work Phone: [facility] Comment on above: Liver lesion (Primar y Dx); Liver transplant recipient; High risk medication use; Therapeutic drug monitoring; 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) Start: 06-17-2024 ambulatory DAISHA MAX Facil ity:[facility] Start: 05-26-2024 End: 05-26-2024 ambulatory Evan Bolton RPh,PharmD [facility] Start: 05-26-2024 End: 05-26-2024 Patient encounter procedure Evan Bolton RPh,PharmD [facility] Start: 05-13-2024 End: 05-13-2024 ambulatory [facility] Start: 04-18-2024 End: 04-18-2024 ambulatory ZULY BRUNO Not Available Start: 03-24-2024 End: 03-24-2024 Patient encounter procedure Angel Carpio RPh,PharmD [facility] Start: 03-24-2024 End: 03-24-2024 ambulatory Angel Carpio [facility],PharmD [facility] [place] Start: 03-22-2024 End: 03-22-2024 ambulatory JOHNNA BRINK Not Available Start: 03-17-2024 End: 03-17-2024 ambulatory JOHNNA BRINK Not Available Start: 03-14-2024 End: 03-14-2024 ambulatory FIDELINA MANDUJANOKARENY Not Available Start: 03-10-2024 End: 03-10-2024 ambulatory JOHNNA BRINK Not Available Start: 03-08-2024 End: 03-08-2024 ambulatory JOHNNA BRINK Not Available Start: 03-03-2024 End: 03-03-2024 ambulatory JOHNNA BRINK Not Available Start: 03-02-2024 End: 03-02-2024 ambulatory Meka Munoz [facility] Start: 03-02-2024 End: 03-02-2024 Patient encounter procedure Meka Munoz [facility] Start: 03-01-2024 ambulatory ZULY ELENZ Facility: [facility] Start: 03-01-2024 End: 03-01-2024 ambulatory JOHNNA BRINK Not Available Start: 02-26-2024 ambulatory ZULY KRISTOPHERNINO Facility: [facility] Start: 02-26-2024 End: 02-26-2024 Office outpatient new 30 minutes Candie Almaguer MD Work Phone: [facility] Comment on above: Heart failure, diast olic, acute (Primary Dx) Start: 02-26-2024 ambulatory ZULY KRISTOPHERHLATISHAZ Facility: [facility] Start: 02-25-2024 End: 02-25-2024 ambulatory FIDELINAPAULETTE MANDUJANOKARENY Not Available Start: 02-23-2024 End: 02-23-2024 ambulatory PALMA PALACIOS Not Available Start: 02-11-2024 End: 02-11-2024 ambulatory ZULY AICHHOLZ Not Available Start: 01-16-2024 Encounter for other preprocedural examination KELVIN PACHECO [facility] Start: 01-16-2024 End: 01-23-2024 Evaluation and management of inpatient Kevin Sage MD Work Phone: [id number] Comment on above: Pleural effusion on right Start: 01-16-2024 End: 01-23-2024 Patient encounter status Kevin Sage MD Work Phone: [facility] Work Phone: Start: 01-12-2024 End: 01-12-2024 ambulatory Angel Fete RPh,PharmD [facility] Start: 01-12-2024 End: 01-12-2024 Patient encounter procedure Angel Fete RPh,PharmD [facility] [place] Start: 01-08-2024 Clinisync Result Encounter Generic External Data Provider [facility] External Department Unsolicited Start: 01-08-2024 Clinisync Result Encounter Generic External Data Provider [facility] External Department Unsolicited Start: 01-06-2024 End: 01-06-2024 ambulatory ZULY AICHHOLZ Not Available Start: 01-06-2024 End: 01-06-2024 Office outpatient visit 25 minutes Zuly Kiana [employer] Work Phone: [facility] Comment on above: Bilateral lower extr emity edema (Primary Dx); 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); Atherosclerosis 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); Obesity (BMI 30-39.9); DARLENE (obstructive sleep apnea); Tremor; Immunocompromised ([facility] Primary hypertension ([facility]); Shortness of breath Start: 01-01-2024 Clinisync Result Encounter Generic External Data Provider [facility] External Department Unsolicited Start: 01-01-2024 Clinisync Result Encounter Generic External Data Provider [facility] External Department Unsolicited Start: 11-03-2023 End: 11-03-2023 ambulatory ZULY AICHHOLZ Not Available Start: 10-06-2023 ambulatory Angel Fete RPh,PharmD [facility] [place] Start: 10-06-2023 Patient encounter procedure Angel Fete RPh,PharmD [facility] [place] Start: 09-29-2023 ambulatory ZULY AICHHOLZ Facility: [facility] Start: 09-23-2023 ambulatory ZULY AICHHOLZ Facility: [facility] Start: 09-15-2023 ambulatory ZULY AICHHOLZ Facility: [facility] Start: 08-28-2023 End: 09-11-2023 Evaluation and management of inpatient Steve Latham MBBS Work Phone: [id number] Start: 08-28-2023 End: 08-28-2023 Office outpatient visit 25 minutes Steve Latham MBBS Work Phone: [facility] Comment on above: Immunosuppressed sta tus (Primary Dx); Kidney replaced by transplant; Aftercare following organ transplant; High risk medication use; Other general symptoms and signs; Abnormal blood chemistry; Hypertension secondary to other renal disorders Start: 08-28-2023 ambulatory STEVE LATHAM Facility:[facility] Start: 08-19-2023 ambulatory Meka rueda [facility] [place] Start: 08-19-2023 Patient encounter procedure Meka Munoz [facility] [place] Start: 06-12-2023 End: 06-12-2023 Office outpatient visit 25 minutes Steve Latham MBBS Work Phone: [facility] Comment on above: 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) Start: 06-10-2023 ambulatory Maren Bar RPh,PharmD [facility] [place] Start: 06-10-2023 Patient encounter procedure Maren Dipika RPh,PharmD [facility] [place] Start: 04-28-2023 End: 04-29-[address] DOCTOR EVANS Facility:[facility] Start: 03-12-2023 ambulatory Angel Fete RPh,PharmD [facility] [place] Start: 03-12-2023 Patient encounter procedure Angel Fete RPh,PharmD [facility] [place] Start: 03-10-2023 ambulatory Angel Fete RPh,PharmD [facility] [place] Start: 03-10-2023 Patient encounter procedure Angel Fete RPh,PharmD [facility] [place] Start: 03-02-2023 End: 03-03-[address] DOCTOR [...] MD Work Phone: [facility] Comment on above: BPH with obstruction /lower urinary tract symptoms (Primary Dx); Encounter for screening for malignant neoplasm of prostate Start: 08-28-2022 End: 08-29-2022 ambulatory ROB BRUNO Facility:[facility] Start: 08-14-2022 End: 08-15-[address] DOCTOR EVANS Facility:[facility] Start: 07-07-2022 End: 07-07-2022 Patient encounter procedure Ryan Yepez MD Work Phone: [facility] Comment on above: Other hydronephrosis (Primary Dx); [...] MD Work Phone: [facility] Comment on above: Other hydronephrosis (Primary Dx) [...] [facility] Work Phone: [facility] [place] Start: 03-14-2022 Patient encounter procedure Comfort Rivera [facility] Work Phone: [facility] [place] Start: 06-14-2021 End: 06-14-2021 ambulatory Comfort Rivera [facility] Work Phone: [facility] Start: 06-14-2021 Patient encounter procedure Comfort Rivera [facility] Work Phone: [facility] Start: 01-20-2020 End: 01-27-2020 Patient encounter procedure PEPE CASE Facility:[facility] Start: 01-06-2020 End: 01-07-2020 Patient encounter procedure RENA GUDINO [facility] Start: 01-06-2020 End: 01-06-2020 Subsequent hospital visit by physician [facility] Start: 10-24-2019 End: 10-25-2019 Patient encounter procedure TANA CAMPA [facility] Start: 10-24-2019 End: 10-24-2019 Subsequent hospital visit by physician [facility] Start: 08-27-2019 End: 08-28-2019 Patient encounter [facility] Start: 08-27-2019 End: 08-27-2019 Subsequent hospital visit by physician [facility] Start: 08-08-2019 End: 08-09-2019 Patient [facility] Start[facility] 08-08-2019 End: 08-08-2019 Subsequent hospital visit by physician [facility] Start: 08-03-2019 End: 08-04-2019 Patient encounter procedure ROB PATINO [facility] Start: 08-03-2019 End: 08-03-2019 Subsequent hospital visit by physician [facility] Start: 08-01-2019 End: 08-02-2019 Patient encounter procedure ROBAmber PATINO [facility] Start: 08-01-2019 End: 08-01-2019 Subsequent hospital visit by physician [facility] Start: 06-10-2019 End: 06-11-2019 Patient [facility] Start: 06-01-2019 End: 06-02-2019 Patient encounter procedure [facility] Start: 01-14-2019 End: 01-15-2019 Patient encounter procedure RENA [facility]UDINO [facility] Start: 11-17-2018 End: 11-17-2018 Patient encounter procedure Fidelina Pierson [facility] Pre Transplant Office [...] End: 10-12-2018 Patient encounter procedure Sophie Singerhaja [facility] Pre Transplant Office Comment on above: Alcoholic cirrhosis, unspecified whether ascites present (Primary Dx); Pre-transplant evaluation for liver transplant Start: 10-12-2018 End: 10-12-2018 Office outpatient new 60 minutes Daxjorgematthew Restrepo Work Phone: [facility] [...] Comfort Rivera [facility] Work Phone: [facility] Procedures Date Procedure Procedure Detail Performing [...] above: Performed By: #### X M ####[facility] (DEFAULT)[address] [place] [id number] Start: 01-22-2024 Assay of magnesium Just in [...] ITRACONAZOLE LEVEL Jennifer norbert Alarcon [facility] Work Phone: Start: 01-20-2024 [...] each organism Fidelina Ortiz Dorian [facility] Work Phone: Start: 01-18-2024 Echocardiography STEVE N [...] 01-17-2024 Assay of magnesium Just in Jake ULZ Work Phone: Start: 01-17-2024 Hepatic function panel [...] AURIS SCREEN BY PCR Carol Ann Capps [employer] Work Phone: Start: 01-08-2024 ALL CBC WITH [...] Evan Kelly MD Work Phone: Start: 09-02-2023 Brncintegris [facility] incl fluor g dnce dx w/cell washg [...] AURIS SCREEN BY PCR Carol Ann Capps [employer] Work Phone: Start: 08-28-2023 CBC AND ELECTRONIC [...] Performed By: #### C MP #### [facility] [address] [place] [address] Dr. Dwight Waters Start: 07-07-2022 Rmvl nfros [...] Start: 10-12-2018 End: 10-12-2018 Calcium total Yovani Mejisa [employer] Work Phone: Start: 10-12-2018 End: 10-12-2018 CBC, EDIF, PLATELET Yovani [employer] Work Phone: Start: 10-12-2018 End: 10-12-2018 Creatinine blood Yovani Mejias [employer] Work Phone: Start: 10-12-2018 End: 10-12-2018 Drug screening cannabinoids natural Yovani Mejias [employer] Work Phone: Start: 10-12-2018 End: 10-12-2018 Hepatitis a antibody haab Yovani Mejias [employer] Work Phone: Start: 10-12-2018 End: 10-12-2018 Hepatitis b core antibody hbcab total Yovani Mejias [employer] Work Phone: Start: 10-12-2018 End: 10-12-2018 Hepatitis b surf antibody hbsab Yovani Mejias [employer] Work Phone: Start: 10-12-2018 End: 10-12-2018 Hepatitis c antibody Yovani Mejias [employer] Work Phone: Start: 10-12-2018 End: 10-12-2018 Iaad ia hepatitis b surface antigen Yovani Mejias [employer] Work Phone: Start: 10-12-2018 End: 10-12-2018 Iaad ia hiv-1 ag w/hiv-1 & hiv-2 antbdy single Yovani Mejias [employer] Work Phone: Start: 10-12-2018 End: 10-12-2018 PSA screening Yovani Mejias [employer] Work Phone: Start: 10-12-2018 End: 10-12-2018 Thromboplastin time partial plasma/whole blood Yovani Mejias [employer] Work Phone: Start: 10-12-2018 End: 10-12-2018 Assay of ethanol Yovani Mejias [employer] Work Phone: Start: 10-12-2018 End: 10-12-2018 Drug/substance [...] Kidn ey replaced by transplant Rebeca Gutierrez [employer] Work Phone: Plan of Treatment Date Care Activity Detail Author Start: 09-20-2029 Screening for malignant neoplasm of colon [facility] Start: 06-20-2025 Potassium [Moles/volume] in Serum or Plasma POTASSIUM [facility] Start: 06-16-2025 End: 06-16-2025 Patient encounter procedure [facility] Start: 06-13-2025 Potassium [Moles/volume] in Serum or Plasma POTASSIUM [facility] Start: 05-23-2025 Potassium [Moles/volume] in Serum or Plasma POTASSIUM [facility] Start: 03-28-2025 Potassium [Moles/volume] in Serum or Plasma POTASSIUM [facility] Start: 03-21-2025 Potassium [Moles/volume] in Serum or Plasma POTASSIUM [facility] Start: 02-28-2025 Potassium [Moles/volume] in Serum or Plasma POTASSIUM [facility] Start: 01-23-2025 Potassium [Moles/volume] in Serum or Plasma POTASSIUM [facility] Start: 09-07-2024 End: 09-07-2024 Telemedicine consultation with patient 09/07/2024 3:00 PM EDT Telemedicine Infectious Diseases [facility] [address] [place] [phone] Evan White DO [address] [place] [address] [facility] Start: 08-31-2024 Screening for malignant neoplasm of lung [facility] Start: 07-31-2024 Influenza vaccination INFLUENZA VACCINE (#1) [facility] Start: 06-17-2024 End: 06-17-2024 ambulatory [facility] Transplant [facility] Start: 06-17-2024 End: 06-17-2024 Patient encounter procedure [facility] Transplant [facility] Start: 03-22-2024 Fasting lipid profile LIPID SCREENING [facility] Start: 03-22-2024 Lipid panel [facility] Start: 02-26-2024 End: 02-26-2024 Patient encounter procedure 02/26/2024 9:30 AM EDT Office Visit [facility] [address] [place] [phone] Candie Almaguer MD [address] [place] [address] [facility] Start: 02-11-2024 End: 02-11-2024 Patient encounter procedure 02/11/2024 10:30 AM EDT Office Visit [facility] [address] [place] [address] Zuly Bruno, BA [address] [place] [phone] [facility] Start: 02-09-2024 End: 02-09-2024 Telemedicine consultation with patient 02/09/2024 3:30 PM EDT Telemedicine [facility] [address] [facility] [address] [place] [phone] Hakeem Alamo MD [address] [facility] [address] [place] [address] [facility] Start: 01-15-2024 End: 01-15-2024 ambulatory [facility] Transplant [facility] Start: 01-15-2024 End: 01-15-2024 Patient encounter procedure [facility] Transplant [facility] Start: 01-06-2024 End: 01-06-2026 Echocardiogram 2D complete Echocardiogram 2D complete Echocardiography Routine DARLENE (obstructive sleep apnea) Primary hypertension (CMS/HCC) Bilateral lower extremity edema Shortness of breath Expected: 01/06/2024 (Approximate), Expires: 01/06/2026 [facility] Work Phone: Comment on above: Expected: 01/06/2024 (Approximate), Expi res: 01/06/2026 Start: 01-06-2024 End: 01-06-2024 Patient encounter procedure 01/06/2024 9:00 AM EST Office Visit [facility] [address] [place] [address] Zuly Bruno, BA [address] [place] [phone] [facility] Start: 12-08-2023 End: 09-07-2024 CT Chest WO contrast [facility] Work Phone: Start: 12-01-2023 COVID-19 VACCINE (2 - Moderna risk series) COVID-19 VACCINE (2 - Moderna risk series) [facility] Start: 09-23-2023 End: 09-23-[address] [facility] Start: 09-23-2023 End: 09-23-2023 Telemedicine consultation with patient 09/23/2023 4:00 PM EDT Telemedicine [facility] [address] [place] [address] Hakeem Alamo MD [address] [facility] [address] [place] [address] [facility] Start: 09-15-2023 End: 09-10-2024 ITRACONAZOLE LEVEL [facility] Start: 08-25-2023 End: 08-25-2024 ALLOSCREEN RECIPIENT (POST TX PRA) ALLOSCREEN RECIPIENT (POST TX PRA) Lab Routine Kidney replaced by transplant Aftercare following organ transplant Immunosuppressed status High risk medication use Other general symptoms and signs Abnormal blood chemistry Expected: 08/25/2023, Expires: 08/25/2024 [facility] Comment on above: Expected: 08/25/2023, Expires: Start: 07-31-2023 Influenza vaccination [facility] Start: 06-12-2023 End: 06-12-2023 Patient encounter procedure 06/12/2023 Office Visit Transplant Surgery Steve Latham MBBS [address] [place] [address] [facility] Start: 03-11-2023 End: 03-11-2023 Telemedicine consultation with patient 03/11/2023 Telemedicine Urology Ryan Yepez MD [address] [facility] [address] [place] [address] [facility] [place] Start: 01-16-2023 End: 01-16-2023 Patient encounter procedure 01/16/2023 Office Visit Transplant Surgery [facility] Transplant [facility] Start: 10-31-2022 End: 10-31-2022 Patient encounter procedure 10/31/2022 Office Visit Transplant Surgery Steve Latham, LU [address] [place] [address] [facility] Transplant [facility] Start: 09-10-2022 End: 09-10-2023 PSA screening PSA, SCREENING Lab Routine BPH with obstruction/lower urinary tract symptoms Encounter for screening for malignant neoplasm of prostate Expected: 09/10/2022 (Approximate), Expires: 09/10/2023 [facility] Comment on above: Expected: 09/10/2022 (Approximate), Expi res: 09/10/2023 Start: 08-11-2022 End: 08-11-2022 Patient encounter procedure 08/11/2022 Office Visit Urology Ryan Yepez MD [address] [facility] [address] [place] [address] [facility] Start: 07-31-2022 Influenza vaccination [facility] Start: 07-07-2022 End: 07-07-2022 Patient encounter procedure 07/07/2022 Office Visit Urology Ryan Yepez MD [address] [facility] [address] [place] [address] [facility] [place] Start: 07-07-2022 End: 07-07-2023 FLUORO IMAGING FOR UROLOGY [facility] Comment on above: Expected: 07/07/2022, Expires: 3 1 Occurrences starti ng 07/07/2022 until 07/07/2022 Start: 06-27-2022 End: 06-27-2022 Patient encounter procedure 06/27/2022 Office Visit Urology Ryan Yepez MD [address] [facility] [address] [place] [address] [facility] [place] Start: 06-27-2022 End: 06-27-2023 Basic metabolic 2000 panel - Serum or Plasma BASIC METABOLIC PANEL Lab Routine Other hydronephrosis Expected: 06/27/2022, Expires: 06/27/2023 [facility] Comment on above: Expected: 06/27/2022, Expires: Start: 06-27-2022 End: 06-27-2022 Patient encounter procedure 06/27/2022 Appointment Computerized Tomography Scan Ryan Yepez MD [address] [facility] [address] [place] [address] Department of Radiology Start: 06-15-2022 End: 05-16-2023 CT Abdomen and Pelvis WO contrast CT ABDOMEN/PELVIS WITHOUT CONTRAST Imaging Routine FAYE (acute kidney injury) Expected: 06/15/2022 (Approximate), Expires: 05/16/2023 [facility] Work Phone: Comment on above: Expected: 06/15/2022 (Approximate), Expi res: 05/16/2023 Start: 06-12-2022 End: 06-12-2022 Patient encounter procedure 06/12/2022 Office Visit Transplant Surgery Steve Latham, LU [address] [place] [address] [facility] Start: 06-11-2022 End: 06-11-2023 BK VIRUS DNA QN, PCR, PLASMA BK VIRUS DNA QN, PCR, PLASMA Lab Routine Kidney replaced by transplant Liver replaced by transplant Abnormal blood chemistry Expected: 06/11/2022, Expires: 06/11/2023 [facility] Comment on above: Expected: 06/11/2022, Expires: 3 Start: 06-04-2022 End: 06-04-2022 Patient encounter procedure 06/04/2022 Office Visit [facility] Start: 10-18-2021 End: 10-18-2021 Patient encounter procedure 10/18/2021 Office Visit Transplant Surgery Steve Latham, MBBS [address] [place] [phone] [facility] Start: 07-31-2021 Influenza vaccination INFLUENZA VACCINE (#1) [facility] Start: 07-26-2021 End: 07-26-2021 Patient encounter procedure 07/26/2021 Office Visit Transplant Surgery [facility] Start: 2021 Prostate specific antigen measurement [facility] Start: 2021 Screening for malignant neoplasm of lung LUNG CANCER SCREENING [facility] Start: 2021 Zoster vaccine hzv live for subcutaneous use ZOSTER (SHINGLES) VACCINE (1 of 2) [facility] Start: 09-20-2020 Colonoscopy COLORECTAL CANCER SCREENING DISCUSSION [facility] Start: 09-20-2020 Screening for malignant neoplasm of colon [facility] Start: 07-31-2019 Influenza vaccination Flu vaccine (#1) [place] Start: 05-22-2019 Annual Wellness Visit (AWV) Annual Wellness Visit (AWV) [place] Start: 04-18-2019 End: 10-19-2019 Ultrasonography of abdomen US ABDOMEN RUQ/LIVER/GB Routine Cirrhosis of liver without ascites, unspecified hepatic cirrhosis type Expected: 04/18/2019 (Approximate), Expires: 10/19/2019 [facility] Work Phone: Comment on above: Expected: 04/18/2019 (Approximate), Expi res: 10/19/2019 Start: 01-25-2019 End: 01-25-2019 Ambulatory 01/25/2019 Office Visit Gastroenterology Christin Elizabeth, [employer] [address] [place] [phone] Division of Gastroenterology and Hepatology Gavin Start: 11-19-2018 End: 11-19-2018 Ambulatory 11/19/2018 Appointment [facility] Start: 11-19-2018 End: 11-19-2018 Ambulatory [facility] Start: 10-19-2018 End: 10-19-2018 Ambulatory Ultrasound Jakob Start: 10-12-2018 End: 10-12-2019 Hemoglobin A1c/Hemoglobin.total mass fraction (Bld) HEMOGLOBIN A1C Routine Alcoholic cirrhosis, unspecified whether ascites present Pre-transplant evaluation for liver transplant Expected: 10/12/2018, Expires: 10/12/2019 [facility] Work Phone: Comment on above: Expected: 10/12/2018, Expires: 9 Start: 10-12-2018 End: 10-12-2019 TYPE AND SCREEN - NOT FOR TRANSFUSION TYPE AND SCREEN - NOT FOR TRANSFUSION Routine Alcoholic cirrhosis, unspecified whether ascites present Pre-transplant evaluation for liver transplant Expected: 10/12/2018, Expires: 10/12/2019 [facility] Work Phone: Comment on above: Expected: 10/12/2018, Expires: 9 Start: 07-31-2018 Influenza vaccination INFLUENZA VACCINE (#1) [facility] Work Phone: Start: 2011 Fasting lipid profile LIPID SCREENING [facility] Work Phone: Start: 2011 Lipid screen Lipid screen [place], [place] Start: 1990 DTaP/Tdap/Td vaccine (1 - Tdap) DTaP/Tdap/Td vaccine (1 - Tdap) [place] Start: 1990 Hepatitis B vaccination HEP B VACCINE (1 of 3 - 19+ 3-dose series) [facility] Start: 1990 Hepatitis B Vaccine (1 of 3 - Risk Recombivax 3-dose series) Hepatitis B Vaccine (1 of 3 - Risk Recombivax 3-dose series) [place] Start: 1990 Third diphtheria, tetanus and acellular pertussis (DTaP) vaccination [facility] Start: 1990 Zoster vaccine hzv live for subcutaneous use ZOSTER (SHINGLES) VACCINE (1 of 2) [facility] Start: 1990 [facility] Start: 1989 Tetanus vaccination TETANUS [facility] Start: 1986 HIV screen HIV screen [place], [place] Start: 02-17-1984 HIV screening HIV SCREENING DISCUSSION [facility] Work Phone: Start: 1983 COVID-19 VACCINE (1) COVID-19 VACCINE (1) [facility] Start: 1982 DTaP/Tdap/Td vaccine (1 - Tdap) DTaP/Tdap/Td vaccine (1 - Tdap) [place] Start: 1977 Pneumococcal 0-64 years Vaccine (1 of 3 - PCV13) Pneumococcal 0-64 years Vaccine (1 of 3 - PCV13) [place] Start: 1977 PNEUMOCOCCAL VACCINE SERIES (1 - PCV) PNEUMOCOCCAL VACCINE SERIES (1 - PCV) [facility] Start: 1977 PNEUMOCOCCAL VACCINE SERIES (1 of 2 - PCV) PNEUMOCOCCAL VACCINE SERIES (1 of 2 - PCV) [facility] Start: 1977 [facility] Start: 02-17-1976 COVID-19 VACCINE (#1) COVID-19 VACCINE (#1) [facility] Start: 02-17-1976 [facility] Start: 1971 COVID-19 VACCINE (#1) COVID-19 VACCINE (#1) [facility] Start: 1971 Hepatitis B vaccination HEP B VACCINE (1 of 3 - 3-dose series) [facility] Start: 1971 Medicare Annual Wellness (AWV) Medicare Annual Wellness (AWV) [facility] Start: 1971 Screening for malignant neoplasm of colon [facility] Start: 1971 Tetanus vaccination [facility] BK VIRUS DNA QN, PCR , PLASMA BK VIRUS DNA QN, PCR, PLASMA Lab Routine Kidney replaced by transplant Liver replaced by transplant Abnormal blood chemistry 06/12/2022 3:38 PM EDT [facility] CALCULI, URINARY (KIDNEY STONE) CALCULI, URINARY (KIDNEY STONE) Fluids Routine 05/19/2022 8:16 AM EDT [facility] Work Phone: CANNABINOIDS, QUANT (URINE)THC CONFIRMATION CANNABINOIDS, QUANT (URINE)THC CONFIRMATION Routine Alcoholic cirrhosis, unspecified whether ascites present ESRD (end stage renal disease) on dialysis Pre-transplant evaluation for liver transplant 10/12/2018 12:57 PM [facility] Work Phone: End: 09-10-2024 CHEM 6 (LYTES, BUN CREA) [facility] EBV VCA IGG AB EBV VCA IGG AB R outine Alcoholic cirrhosis, unspecified whether ascites present ESRD (end stage renal disease) on dialysis Pre-transplant evaluation for liver transplant 10/12/2018 12:57 PM [facility] Work Phone: Fungus identified in Unspecified specimen by Culture [facility] HLA TYPING (SOLID ORGAN) HLA TYPING (SOLID ORGAN) Routine Alcoholic cirrhosis, unspecified whether ascites present ESRD (end stage renal disease) on dialysis Pre-transplant evaluation for liver transplant 10/12/2018 12:57 PM [facility] Work Phone: HSV 1 AND 2 IGG ANTIBODY HSV 1 AND 2 IGG ANTIBODY Routine Alcoholic cirrhosis, unspecified whether ascites present ESRD (end stage renal disease) on dialysis Pre-transplant evaluation for liver transplant 10/12/2018 12:57 PM [facility] Work Phone: MR Abdomen WO and W contrast IV MRI ABDOMEN WITH AND WITHOUT CONTRAST Imaging Routine Liver lesion Ordered: 06/17/2024 [facility] Comment on above: Ordered: 06/17/2024 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 specific culture [facility] PLACEMENT NEPHROSTOM Y CATHETER PERCUTANEOUS W/ IMAGE GUIDANCE PLACEMENT NEPHROSTOMY CATHETER PERCUTANEOUS W/ IMAGE GUIDANCE Imaging Routine Hydronephrosis due to obstruction of ureteral orifice FAYE (acute kidney injury) 05/17/2022 11:08 AM EDT [facility] NH POST VOID RESIDUAL NH POST VO ID RESIDUAL NH - OFFICE PERFORMED Routine BPH with obstruction/lower urinary tract symptoms Ordered: 09/10/2022 [facility] Comment on above: Ordered: 09/10/2022 PTH INTACT PTH INTACT Routi ne Alcoholic cirrhosis, unspecified whether ascites present ESRD (end stage renal disease) on dialysis Pre-transplant evaluation for liver transplant 10/12/2018 12:57 PM [facility] Work Phone: RUBEOLA IGG AB (IMMU NE STATUS) RUBEOLA IGG AB (IMMUNE STATUS) Routine Alcoholic cirrhosis, unspecified whether ascites present ESRD (end stage renal disease) on dialysis Pre-transplant evaluation for liver transplant 10/12/2018 12:57 PM [facility] Work Phone: End: 01-16-2024 Standard ECG ECG ECG Routine One Time for 1 Occurrences starting 01/16/2024 until 01/16/2024 [facility] Comment on above: One Time for 1 Occurrences starting 12/31 until 01/16/2024 End: 09-10-2024 TACROLIMUS LEVEL, TROUGH (PRE DRUG LEVEL) [facility] VARICELLA IGG AB (IM M STATUS) VARICELLA IGG AB (IMM STATUS) Routine Alcoholic cirrhosis, unspecified whether ascites present ESRD (end stage renal disease) on dialysis Pre-transplant evaluation for liver transplant 10/12/2018 12:57 PM [facility] Work Phone: Immunizations Immunization Date Immunization Notes Care Provider Zeeshan yi 11-03-2023 influenza virus vacc ine, unspecified formulation Generic Provider [facility] 11-03-2023 Moderna SARS-CoV-2 50mcg/0.5mL Booster Generic Provider [facility] Payers Date Payer Category Payer Unknown [id number] 2019 Unknown [facility] [id number] 2019-Present [id number] [facility] DEPT OF JOB xxxxxxxxxxxx 2018-Present [phone] [address] [place] [address] xxxxxxxxxxxx [id number] 2018 Medicaid MEDICAID MEDICAI D [id number] 2018-Present [address] [place] [address] [id number] 2018 Medicaid [id number] [id number] 2018 Medicare MEDICARE MEDICAR E PART A AND B xxxxxxxxxxx 2018-Present [phone] [address] [address] [place] [address] xxxxxxxxxxx [id number] 2018 Medicare [id number] 2018 Medicare MEDICARE MEDICAR E A AND B [id number] 2018-Present [address] [place] [address] [id number] [id number] 2018 Medicare [id number] [id number] .[id number] 1971 Unknown [id number] 2.16.840.1.125765.3.579.2.173 1971 Unknown [id number] 2.16.840.1.193289.3.579.2.173 1971 Unknown [id number] 2.16.840.1.688461.3.579.2.173 1971 Unknown [id number] 2.16.840.1.408873.3.579.2.173 1971 Unknown [id number] 2.16.840.1.322364.3.579.2.173 1971 Unknown [id number] 2.16.840.1.144028.3.579.2.173 1971 Unknown [id number] 2.16.840.1.926509.3.579.2.173 1971 Unknown [id number] 2.16.840.1.662193.3.579.2.173 1971 Unknown [id number] 2.16.840.1.785702.3.579.2.647 1971 Unknown [id number] 2.16.840.1.956093.3.579.2.593 1971 Unknown [id number] 2.16.840.1.632134.3.579.2.593 1971 Unknown [id number] 2.16.840.1.066801.3.579.2.593 1971 Unknown [id number] 2.16.840.1.093173.3.579.2.593 1971 Unknown [id number] 2.16.840.1.415622.3.579.2.593 1971 Unknown [id number] 2.16.840.1.594958.3.579.2.593 1971 Unknown [id number] 2.16.840.1.233103.3.579.2.593 1971 Unknown [id number] 2.16.840.1.919590.3.579.2.593 1971 Unknown [id number] 2.16.840.1.832509.3.579.2.593 1971 Unknown [id number] 2.16.840.1.486542.3.579.2.593 1971 Unknown [id number] 2.16.840.1.473957.3.579.2.593 1971 Unknown [id number] 2.16.840.1.800754.3.579.2.593 1971 Unknown [id number] 2.16.840.1.025903.3.579.2.593 1971 Unknown [id number] 2.16.840.1.332860.3.579.2.593 1971 Unknown [id number] 2.16.840.1.638580.3.579.2.593 1971 Unknown [id number] 2.16.840.1.699540.3.579.2.125 9 1971 Unknown [id number] 2.16.840.1.436085.3.579.2.125 9 1971 Unknown [id number] 2.16.840.1.286005.3.579.2.125 9 1971 Unknown [id number] 2.16.840.1.651487.3.579.2.125 9 1971 Unknown [id number] 2.16.840.1.531114.3.579.2.125 9 1971 Unknown [id number] 2.16.840.1.168354.3.579.2.125 9 1971 Unknown [id number] 2.16.840.1.842528.3.579.2.125 9 1970 Unknown [id number] [id number]5 9 1970 Unknown [id number] 2.16.840.1.855556.3.579.2.125 9 1971 Unknown [id number] 2.16.840.1.384582.3.579.2.125 9 1971 Unknown [id number] 2.16.840.1.568199.3.579.2.125 9 1971 Unknown [id number] 2.16.840.1.680803.3.579.2.125 9 1971 Unknown [id number] 2.16.840.1.309007.3.579.2.125 9 1971 Unknown [id number] 2.16.840.1.859233.3.579.2.125 9 1971 Unknown [id number] 2.16.840.1.787483.3.579.2.594 1971 Unknown [id number] 2.16840.1.056355.3.579.2.594 1971 Unknown [id number] 2.16.840.1.949373.3.579.2.594 1971 Unknown [id number] 2.16840.1.868718.3.579.2.594 1971 Unknown [id number] 2.16.840.1.461115.3.579.2.594 1971 Unknown [id number] 2.16840.1.207926.3.579.2.594 1971 Unknown [id number] 2.16.840.1.281960.3.579.2.594 1971 Unknown [id number] 2.16840.1.851440.3.579.2.594 1971 Unknown [id number] 2.16.840.1.167480.3.579.2.594 1971 Unknown [id number] 2.16840.1.656289.3.579.2.594 1971 Unknown [id number] 2.16.840.1.699889.3.579.2.594 1971 Unknown [id number] 2.16840.1.612081.3.579.2.594 1958 Medicaid [id number] 1958 Medicare [id number] Social History Date Type Detail Facility Start: 07-19-2018 End: 10-19-2018 Tobacco smoking status NHIS Former smoker [facility] Start: 07-19-1988 End: 05-14-2018 History of tobacco use Current smoker [facility] Work Phone: Start: 07-19-1988 End: 05-14-2018 History of tobacco use Cigarette Smoker [facility] Work Phone: Start: 10-19-2018 End: 06-17-2024 Cigarettes smoked current (pack per day) - Reported [facility] End: 07-19-1994 History of tobacco use Chews Tobacco [facility] Work Phone: Start: 1970 Sex Assigned At Not on file [facility] Work Phone: Start: 11-03-2018 Alcohol intake Current non-drinker of alcohol (finding) [place] Start: 06-22-2018 Alcohol Comment Hx of alcoholism [place] Start: 11-03-2018 End: 06-17-2024 Alcohol intake No [facility] Start: 07-19-2018 Tobacco use and exposure Former user [facility] Start: 09-06-2020 End: 06-17-2024 Alcohol intake Ex-drinker (finding) [facility] Start: 07-19-2018 Alcohol Comment stopped 05/14/2018 [facility] Start: 05-05-2022 End: 01-16-2023 Exposure to SARS-CoV-2 (event) Not sure [facility] Start: 07-07-2018 Gender identity Identifies as male gender (finding) [facility] Start: 01-16-2022 Sexual orientation Heterosexual (finding) [facility] Start: 11-03-2023 Tobacco use and exposure [...] Dates [id number] Start: 05-23-2020 [id number] Start: 04-12-2020 [id number] FDA Start: 05-17-2022 Comment on above: Description: Implant time-out completed by intra-procedural staff including this RN, rfid technician, and performing physician. The following was [...] Required: No Receive/Pickup Date: 06/29/2024 Shipping Address: [address] [place] [address] [address] Contact Info: Specialty ([place]) [phone] Jakob [phone] [facility] [phone] David [phone] Bedside Delivery ([facility]) [phone] documented in this encounter [facility] 06-17-2024 History of Present illness Narrative -Referring [...] Left; Surgeon: Jyoti Bryant MD, PhD; Location: [facility] MAIN OR PLACEMENT NEPHROSTOMY CATHETER PERCUTANEOUS W/ IMAGE GUIDANCE 05/17/2022 Surgeon: Enzo Heart DO; [facility] INTERVENTIONAL RADIOLOGY (VIR) LIVER TRANSPLANT, ORTHOTOPIC N/A 04/12/2020 Laterality: N/A; Surgeon: LU Palma; Location: [facility] SAME DAY SURGERY MAIN OR KIDNEY TRANSPLANT W/O PAIUTE OF UTAH NEPHRECTOMY N/A 04/12/2020 Laterality: N/A; Surgeon: LU [...] 0.2 06/13/2024 Explant Pathology Pathologic Diagnosis A. [place] liver, orthotopic liver transplant resection (1458 gram): [...] up in 1 year. Daisha Max DO [facility] Pager: [phone] Images from the original note were not included. 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 Security Control Center Operator: Anayeli Burt Date of Liver Transplant: 04/13/2020 (Kidney), 04/13/2020 (Liver) 4 years, 2 months post Liver/Kidney Transplant Primary Disease: Hypertensive Nephrosclerosis Transplant Net Architect: Erma Roe/ Daisha Max Primary Care physician: [...] LAB AND PHARMACY: None Specified [id number] [place] [address] - [address] [facility] [address] [facility] [address] [facility] [place] [facility] [address] [facility] [facility] [address] [id number] [place] [address] [address] [facility] [address] [facility] [address] [facility] Jakob [address], [facility] [address] [address] ROS and SCREEN: Chest Pain: negative Cough: [...] year: no Do you follow with a Validation Manager? yes Do you have a Primary Care [...] ADDRESS WITH PHYSICIAN: documented in this encounter [facility] 06-17-2024 Instructions Ashlee Fair RN - 06/17/2024 10:00 AM EDT - No medication changes from a liver standpoint - A MRI Abdomen has been ordered today. Please call central scheduling at [phone] to schedule or take paper copy to your local hospital - Return to clinic 06/16/2025 TRANSPLANT HEPATOLOGY 3, [facility] as scheduled documented in this encounter [facility] 06-17-2024 History of Present illness Narrative Images from the original note were not included. George Styles is a 54 y.o. 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 No longer follows with a local merchandiser retail representative. History of Present Illness: Since George was [...] and lab results. Rebeca Gutierrez MSN, RN, SHEET ROCK APPLIER-BC, CCTN Certified Nurse Practitioner [facility] [address] [facility] [address] documented in this encounter [facility] 06-17-2024 Instructions JEANNA Hess - 06/17/2024 9:30 AM EDT Tacrolimus - increase to 0.2 mg packet three time per day; goal 3 to 5 ng/dL ; when the itraconazole stops 09/03/2024, reduce to 0.5 mg twice daily. Once your tacrolimus level is 3-5 ng/dL, you may reduce labs to every other week. documented in this encounter [facility] 05-26-2024 History of Present illness Narrative [facility] RX OUTREACH ADVANCED: Call Information: Date and Time of Contact: 05/26/2024 4:35 PM Method of Contact: By Phone Contact Type: Prescriptions Contactor: [facility] OP Contactee: Patient Contact Outcome: Left message and Follow-up Contact Info: Specialty ([place]) [phone] [facility] [phone] [facility] [phone] David [phone] Bedside Delivery ([facility]) [phone] [facility] RX OUTREACH ADVANCED: Call Information: Date and Time of Contact: 05/30/2024 4:52 PM Method of Contact: By Phone Contact Type: Prescriptions Contactor: Patient Contactee: [facility] OP Shipping/Pickup: Medicare B Refill?: No Medication Name: Myco sod 360mg, Prograf 0.2mg Delivery Method: Ship Delivery Location: Home Signature Required: No Receive/Pickup Date: 06/06/2024 Shipping Address: [address] [place] [address] Contact Info: Specialty ([place]) [phone] [facility] [phone] [facility] [phone] David [phone] Bedside Delivery ([facility]) [phone] documented in this encounter [facility] 05-13-2024 Note [facility] Subjective George Styles is a 54 [...] , Rfl: t (more content not included)... [facility] 03-24-2024 History of Present illness Narrative [facility] RX OUTREACH ADVANCED: Call Information: Date and Time of Contact: 03/24/2024 4:14 PM Method of Contact: By Phone Contact Type: Prescriptions Contactor: [facility] OP Contactee: Patient Contact Outcome: Left message Shipping/Pickup: Medication Name: Prograf 0.2mg pack Contact Info: Specialty ([place]) [phone] [facility] [phone] [facility] [phone] David [phone] Bedside Delivery ([facility]) [phone] [facility] RX OUTREACH ADVANCED: Call Information: Date and Time of Contact: 03/28/2024 3:58 PM Method of Contact: By Phone Contact Type: Prescriptions Contactor: [facility] OP Contactee: Patient Contact Outcome: Left message and Call back later Shipping/Pickup: Medication Name: Mycophenolate, prograf Contact Info: Specialty ([place]) [phone] [facility] [phone] [facility] [phone] David [phone] Bedside Delivery ([facility]) [phone] [facility] RX OUTREACH ADVANCED: Call Information: Method of Contact: By Phone Contact Type: Prescriptions Contactor: Patient Contactee: [facility] OP Shipping/Pickup: Medicare B Refill?: No Medication Name: Mycopheolate 360mg and Prograf Delivery Method: Ship Delivery Location: Home Signature Required: No Receive/Pickup Date: 04/04/2024 Shipping Address: [address] [place] [address] [address] Contact Info: Specialty ([place]) [phone] [facility] [phone] [facility] [phone] David [phone] Bedside Delivery ([facility]) [phone] documented in this encounter [facility] 03-24-2024 History of Present illness Narrative [facility] RX OUTREACH ADVANCED: Call Information: Date and Time of Contact: 03/24/2024 4:14 PM Method of Contact: By Phone Contact Type: Prescriptions Contactor: [facility] OP Contactee: Patient Contact Outcome: Left message Shipping/Pickup: Medication Name: Prograf 0.2mg pack Contact Info: Specialty ([place]) [phone] [facility] [phone] [facility] [phone] David [phone] Bedside Delivery ([facility]) [phone] [facility] RX OUTREACH ADVANCED: Call Information: Date and Time of Contact: 03/28/2024 3:58 PM Method of Contact: By Phone Contact Type: Prescriptions Contactor: [facility] OP Contactee: Patient Contact Outcome: Left message and Call back later Shipping/Pickup: Medication Name: Mycophenolate, prograf Contact Info: Specialty ([place]) [phone] [facility] [phone] [facility] [phone] David [phone] Bedside Delivery ([facility]) [phone] [facility] RX OUTREACH ADVANCED: Call Information: Method of Contact: By Phone Contact Type: Prescriptions Contactor: Patient Contactee: [facility] OP Shipping/Pickup: Medicare B Refill?: No Medication Name: Mycopheolate 360mg and Prograf Delivery Method: Ship Delivery Location: Home Signature Required: No Receive/Pickup Date: 04/04/2024 Shipping Address: [address] [place] [address] Contact Info: Specialty ([place]) [phone] [facility] [phone] [facility] [phone] David [phone] Bedside Delivery ([facility]) [phone] [facility] RX OUTREACH ADVANCED: Pre-Verification/Specialty Assessment/Disease [...] Within normal limits Contact Info: Specialty ([place]) [phone] Jakob [phone] [facility] [phone] David [phone] Bedside Delivery ([facility]) [phone] documented in this encounter [facility] 03-02-2024 History of Present illness Narrative [...] [place] Contact Info: Specialty ([place]) [phone] [facility] [phone] [facility] [phone] David [phone] Bedside Delivery ([facility]) [phone] [facility] RX OUTREACH ADVANCED: Call Information: Date and Time of Contact: 03/02/2024 3:49 PM Method of Contact: By Phone Contact Type: Prescriptions Contactor: [facility] OP Contactee: Patient Contact Outcome: Left message and Follow-up Shipping/Pickup: Medication Name: Myco 360mg and Prograf 0.2mg Contact Info: Specialty ([place]) [phone] [facility] [phone] [facility] [phone] David [phone] Bedside Delivery ([facility]) [phone] [facility] RX OUTREACH ADVANCED: Call Information: Date and Time of Contact: 03/02/2024 4:08 PM Method of Contact: By Phone Contact Type: Prescriptions Contactor: [facility] OP Contactee: Patient Shipping/Pickup: Medicare B Refill?: No Medication Name: Myco 360 / prograf 0.2 Delivery Method: Ship Delivery Location: Home Signature Required: No Receive/Pickup Date: 03/03/2024 Shipping Address: [address] [place] [address] [address] Contact Info: Specialty ([place]) [phone] [facility] [phone] [facility] [phone] David [phone] Bedside Delivery ([facility]) [phone] documented in this encounter [facility] 02-26-2024 History of Present illness Narrative [...] presents to the HF Clinic at [facility] on 02/26/2024 for initial evaluation of [...] Left; Surgeon: Jyoti Bryant MD, PhD; Location: [facility] MAIN OR PLACEMENT NEPHROSTOMY CATHETER PERCUTANEOUS W/ IMAGE GUIDANCE 05/17/2022 Surgeon: Enzo Heart DO; Location: [facility] INTERVENTIONAL RADIOLOGY (VIR) LIVER TRANSPLANT, ORTHOTOPIC N/A 04/12/2020 Laterality: N/A; Surgeon: LU Palma; Location: [facility] SAME DAY SURGERY MAIN OR KIDNEY TRANSPLANT W/O PAIUTE OF UTAH NEPHRECTOMY N/A 04/12/2020 Laterality: N/A; Surgeon: LU [...] qd Antithrombotic: no Statin: no ICD: NA PROTOTYPE MACHINE OPERATOR: NA CV Test results: ECHOCARDIOGRAM [...] will be BP control. Candie Almaguer M.D. assembly line inspector Advanced Heart Failure Program Division of Cardiovascular Medicine [facility] [email or web address] [phone] fax [phone] documented in this encounter [facility] 02-26-2024 Instructions Marsah Mckeon RN - 02/26/2024 9:30 AM EDT The following instructions were given today: Labs today Follow up with Dr. Almaguer as needed. Your after visit summary (AVS) is viewable in [facility] My [facility]. Call RN if you have cardiac questions/concerns M-F 8 to 4:30 ; office # [phone], option 6, then option 2. Guidelines for home management: 1. Continue to monitor weight first thing each morning. 2. Report to the CHF CLINIC ([phone]) any significant weight change. Remember that weight [...] labs/tests run outside of the [facility] and you do not hear from us 1-2 days after they are performed, you must call us to ensure we received the results. Office fax # [phone]. No news does not necessarily mean that your tests are normal, it could mean we did not get the results. For questions/updates: please provide your name with spelling, date of and question or update All calls are prioritized and responses researched, if possible, prior to calls being returned. Call Scheduling for any appointment/procedure verification or changes [phone], option 7 [address] [facility] Heart Schedulers at [phone], option 1. documented in this encounter [facility] 01-23-2024 Nurse Note Jakob wrap & [...] understanding on picking up needed prescriptions at [facility] as listed on discharge summary. Patient denies any unanswered questions at this time. Patient has been discharged with all of their belongings, transported via wheelchair on oxygen to front entrance for brother to transport home on home oxygen supply. [facility] 01-23-2024 Miscellaneous Notes Jakob wrap & [...] understanding on picking up needed prescriptions at [facility] pharmacy as listed on discharge summary. Patient [...] Pain): verbalization of pain descriptors George Styles ([id number]) PRE OPERATIVE DIAGNOSIS High output congestive heart failure [I50.83] POST OPERATIVE DIAGNOSIS Post-Op Diagnosis Codes: * High output congestive heart failure [I50.83] PROCEDURE PERFORMED Procedure(s) (LRB): LIGATION ANGIOACCESS AVF (Left) Resection of large aneurysmic vein PRIMARY CLOSURE Yes INTRAOPERATIVE FINDINGS No significant abnormalities SURGEON Surgeons and Role: * Jyoti Bryant MD, PhD - Primary ANESTHESIOLOGIST Anesthesiologist: Celena Tiwari MD; Kehinde Gutierrez MD REPRODUCTION MACHINE LOADER: David Jasso APRN-REPRODUCTION MACHINE LOADER Train Dispatcher Assisting: Mini Khan MD SURGICAL STAFF Dairy Farm Operator: Zoila Lawrence RN Relief Dairy Farm Operator: Marimar Saravia RN Relief Scrub: Briseyda Self [...] patent, patient breathing easily. Report received from front loader residential driver and report received from anesthesiology. Pt arrived [...] Axillary block. SURGEON(S): Jyoti Bryant MD, PHD HORSE BREEDER: Mynor Fall MD ESTIMATED BLOOD LOSS: Minimal. [...] Jyoti Bryant MD, PHD ATTENDING SHANNON/Constanza JOB: [id number] DOC: [id number] Patient has been asleep this shift. He [...] overnight coverage, Jasper Gastelum MD, via pager #[phone] Pt- George Styles. Smith 1082. TM1. Was wondering if he can have his Melatonin order increased to 6mg. Per pt, he usually takes 8mg at home. -SAMI Duffy #[phone] Tati Charles RN Internal Medicine Daily Progress Note Patient: George Styles, 1970, [id number] Physician: Arelis Mera MD, PGY3, Pager #[phone], TM1 service Assessment/Plan: George Styles is a [...] home amlodipine 5mg CAD: non-obstructive CAD on [facility] 2019. - continue home aspirin [...] Mera MD Mr. Styles was admitted to [address] [place] [address]. On admission to 0, from outside facility a dual RN initial assessment of skin condition was performed by Izzy Gutierrez RN and Leroy Singleton RN. Skin Assessment: Skin within defined limits:Yes Jose Score: 20 Wound Vision Planting Supervisor images obtained: No LDA Added: No Based [...] when available. documented in this encounter [facility] 01-23-2024 Nurse Note Home Oxygen Qualification [...] at 4L of oxygen is also required.) [facility] 01-23-2024 History of Present illness Narrative [...] mg Oral Daily Kelvin Pacheco MD, MBBS health professor Transplant nephrology Surgery Post-Op Check Note [...] monitor Leonel Harris DO General Surgery Pager [phone] CM went to bedside to talk with patient. Patient states he has home oxygen through [employer]. He uses 2.5 LNC around the clock. Patient states his brother will bring a tank for discharge. Anticipate patient will discharge tomorrow AM. Brother updated. Girish Oro RN, BSN Clinical Community Services Officer Please note that I am a float rn case manager hospice and may not cover the same service every day. Please call the main Case Management office at [phone] for up-to-date coverage. Verified patients identity using [...] Daily Progress Note Patient: George Styles, 1970, [id number] Physician: Yury Ozuna MD, PGY1, Pager #[phone], TM1 service Assessment/Plan: George Styles is a [...] home amlodipine 5mg CAD: non-obstructive CAD on [facility] 2018. - continue home aspirin [...] with the Nutrition plan outlined in the Corporate Training Manager s note. DVT prophylaxis with lovenox Diet [...] in resident note. Kelvin Pacheco MD, MBBS health professor Transplant nephrology Patient seen and examined [...] Oral BID AC Kelvin Pacheco MD, LU health professor Transplant nephrology Images from the original note were not included. Internal Medicine Daily Progress Note Patient: George Styles, 1970, [id number] Physician: Yury Ozuna MD, PGY1, Pager #[phone], NE1 service Assessment/Plan: George Styles is a 53 [...] home amlodipine 5mg CAD: non-obstructive CAD on [facility] 2018. - continue home aspirin [...] with the Nutrition plan outlined in the Corporate Training Manager s note. DVT prophylaxis with lovenox Diet [...] Provider: Zuly Bruno NP Pharmacy: [facility] Other Comments: Patient reported his Last Home Dose of mycophenolate and tacrolimus was on 01/15/24 at 0700. Medications that need removed from Outside Medication Reconciliation list: Please remove all medications. Please feel free to contact me with any further questions. Name: Heidy Chatman Phone #: [phone] Date/Time: 01/19/2024 12:08 PM Time Spent: 15 minutes Associated attestation - Fidelina Alarcon [facility] - 01/19/2024 12:41 PM EST Department of Pharmacy Admission Medication Reconciliation Note Patient: George Styles Room/Bed: 1082/A I have reviewed the home medication list with the Simulation Tech. The home medication list status is: complete. All changes to the home medication list have been updated in [facility]. Updated SENIOR LIVING ADVISOR Med List: Prior to Admission Medications Prescriptions [...] any further questions. Name: Fidelina Ortiz Dorian [facility] Phone #: [phone] Date/Time: 01/19/2024 12:41 PM Internal Medicine Daily Progress Note Patient: George Styles, 1970, [id number] Physician: Yury Ozuna MD, PGY1, Pager #[phone], IP0 service Assessment/Plan: Acute Hypoxic Respiratory Insufficiency GARCIA, [...] home amlodipine 5mg CAD: non-obstructive CAD on [facility] 2018. - continue home aspirin [...] with the Nutrition plan outlined in the Corporate Training Manager s note. DVT prophylaxis with lovenox Diet [...] mg Oral Daily Kelvin Pacheco MD, MBBS health professor Transplant nephrology Internal Medicine Daily Progress Note Patient: George Styles, 1970, [id number] Physician: Yury Ozuna MD, PGY1, Pager #[phone], TM1 service Assessment/Plan: Updates: - continued diuresis [...] home amlodipine 5mg CAD: non-obstructive CAD on [facility] 2018. - continue home aspirin [...] with the Nutrition plan outlined in the Corporate Training Manager s note. DVT prophylaxis with lovenox Diet [...] in resident note. Kelvin Pacheco MD, [facility] health professor Transplant nephrology Pt known to security lead from previous admissions. Provided emotional and spiritual support. Patient shared about: family support, medical course Law Firm Consultant provided: - Supportive presence - Active listening - Validation of feelings/emotions Patient encouraged to request a security lead as needed. Chaplains are available in-house 24 hours a day and 7 days a week. For urgent matters in [facility], please page [phone]. If the request is not urgent, please enter a consult. Consults are responded to within 24 hours. Senior Staff Law Firm Consultant Angie Singh Mdiv, [facility] [phone] [email or web address] On-call TYLOR: bingo caller David: 22/06 Pager TYLOR,APOORVA, and Brock [...] Sources of spiritual well-being Explored Expectations;Treatment decisions Gas Or Water Meter Installer Education Gas Or Water Meter Installer Service Available Yes Educated Patient Outcomes [...] interaction. Name: Fidelina Alarcon RPH Phone #: [phone] Date/Time: 01/18/2024 9:56 AM Discharge Planning Patient [...] Yes Name and Contact information: Gian Styles ([phone]) Would you like to add additional adult [...] oxygen?: Yes Oxygen Provider and Contact : [employer] Liter-Flow?: Order for oxygen use?: unknown at [...] patient on Anticoagulation? 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 : No Employed?: Disabled Coping/Stress Concerns about patient s coping and stress?: No Concerns about patient s caregiver s coping and stress?: No Values and Beliefs Cultural or sabianist practices that may impact discharge planning and/or [...] Plan 1. Identified self and role as Community Services Officer. 2. Confirmed and updated demographics and treatment team. 3. Community Services Officer will continue to follow with medical team for any other additional discharge needs. Kasandra DON RN [facility] [address] [phone] *Please note I am float CM and work Thursday and Thursday every other week. Please call [phone] for assist in my absence. Internal Medicine Daily Progress Note Patient: George Styles, 1970, [id number] Physician: Yury Ozuna MD, PGY1, Pager #[phone], TM1 service Assessment/Plan: Updates: - continue diuresis [...] home amlodipine 5mg CAD: non-obstructive CAD on [facility] 2018. - continue home aspirin [...] ordered 2D echo. Kevin Sage MD, FASN Crozer of Clinical Medicine [facility] documented in this encounter [facility] 01-23-2024 Plan of care note Patient [...] Symptoms (Acute Pain): verbalization of pain descriptors [facility] 01[facility]22[facility] Hospital Discharge instructions Arelis Mera MD [...] your doctor for further instructions. Please call [phone], Option 1 or [phone] to schedule your appointment with the Heart Failure Clinic. Arelis Mera MD - 01/22/2024 3:08 PM EST You can change your dressing 48 hours from the procedure The following attachments cannot be sent through Care Everywhere.Heart Failure: Avoiding Triggers (Sudanese)Heart Failure: Limiting Sodium (Sudanese)Pain and Pain Control ([facility]) (Sudanese)documented in this encounter [facility] 01-22-2024 Surgery Postoperative evaluation and management note George Styles ([id number]) PRE OPERATIVE DIAGNOSIS High output congestive heart failure [I50.83] POST OPERATIVE DIAGNOSIS Post-Op Diagnosis Codes: * High output congestive heart failure [I50.83] PROCEDURE PERFORMED Procedure(s) (LRB): LIGATION ANGIOACCESS AVF (Left) Resection of large aneurysmic vein PRIMARY CLOSURE Yes INTRAOPERATIVE FINDINGS No significant abnormalities SURGEON Surgeons and Role: * Jyoti Bryant MD, PhD - Primary ANESTHESIOLOGIST Anesthesiologist: Celena Tiwari MD; Kehinde Gutierrez MD REPRODUCTION MACHINE LOADER: David Jasso APRN-REPRODUCTION MACHINE LOADER Train Dispatcher Assisting: Mini Khan MD SURGICAL STAFF Dairy Farm Operator: Zoial Lawrence RN Relief Dairy Farm Operator: Marimar Saravia RN Relief Scrub: Briseyda Self Scrub Person: Cinda Mai RN Resident Assisting: Leonel Harris DO Fellow: Miki Mcgowan MD, MBBS COMPLICATIONS None ESTIMATED BLOOD LOSS Minimal SPECIMENS No specimen sent * No specimens in log * Jyoti Bryant MD, PhD January 22, 2024 1:34 PM [facility] Work Phone: 01-22-2024 Nurse Note Arrived to PACU assisted by anesthesiology. Connected to monitors. Turned side to side, OR linens removed, repositioned. Airway patent, patient breathing easily. Report received from front loader residential driver and report received from anesthesiology. Pt arrived awake. VSS. Sats slightly low. Pulm rehab used. Sats currently 3lpm @ 93%. Pt states he uses CPAP nocturnally. A&Ox4. Nerve block left arm, elevated. [facility] 01-22-2024 Surgery Postoperative evaluation and management [...] Axillary block. SURGEON(S): Jyoti Bryant MD, PHD HORSE BREEDER: Mynor Fall MD ESTIMATED BLOOD LOSS: Minimal. [...] present for the entire procedure. Dictated By: Joyti Bryant MD, PHD Jyoti Bryant MD, PHD ATTENDING SHANNON/Constanza JOB: [id number] DOC: [id number] [facility] 01-22-2024 Plan of care note Patient [...] Of Care Reviewed With: patient [facility] 01-20-2024 Consult note Associated Order (s): IP CONSULT TO SURGERY - TRANSPLANT (RENAL) Images from the original note were not included. TRANSPLANT SURGERY CONSULT NOTE: Consult: 01/20/2024, 4:03 PM [facility]ws Faculty Assistant: Starla Morris MD Reason for Consult: Requesting Dr Carson Bryant for AVF revision/closure given new onset high output heart failure George Styles is a 53 y.o. male CURRENT HOSPITALIZATION LOS: Admit Date: 01/16/2024 [facility] Hospital LOS: 4 days George [...] DAY SURGERY MAIN OR KIDNEY TRANSPLANT W/O PAIUTE OF UTAH NEPHRECTOMY N/A 04/12/2020 Laterality: N/A; Surgeon: LU [...] Labs-CBC: WBC/Hgb/Hct/Plts: 3.79/12.5/38.9/166 (01/20 611) Labs-Chem 7([facility]): Bun/Creat/Cl/CO2/Glucose: 15/1.12/105/28/88 (01/20 611) Na/K+/Phos/Mg/Ca: 141/3.8/--/1.6/-- [...] seen and staffed with Dr. Mcgowan fellow button sewing machine operator Thank you, Starla Morris MD Associated attestation - Jyoti Bryant MD, PhD - 01/22/2024 10:54 AM EST Beata Bryant MD, PhD, have independently seen and examined the patient, reviewed the labs, discussed the patient with the fellow/resident and agree with the note. [facility] Work Phone: 01-20-2024 Consult note Associated Order (s): IP CONSULT TO SURGERY - TRANSPLANT (RENAL) Images from the original note were not included. TRANSPLANT SURGERY CONSULT NOTE: Consult: 01/20/2024, 4:03 PM [facility] Faculty Assistant: Starla Morris MD Reason for Consult: Requesting Dr Carson Bryant for AVF revision/closure given new onset high output heart failure George Styles is a 53 y.o. male CURRENT HOSPITALIZATION LOS: Admit Date: 01/16/2024 [facility] Hospital LOS: 4 days George [...] DAY SURGERY MAIN OR KIDNEY TRANSPLANT W/O PAI[place] OF U[place]H NEPHRECTOMY N/A 04/12/2020 Laterality: N/A; Surgeon: LU [...] Labs-CBC: WBC/Hgb/Hct/Plts: 3.79/12.5/38.9/166 (01/20 611) Labs-Chem 7([facility]): Bun/Creat/Cl/CO2/Glucose: 15/1.12/105/28/88 (01/20 611) Na/K+/Phos/Mg/Ca: 141/3.8/--/1.6/-- [...] seen and staffed with Dr. Mcgowan fellow button sewing machine operator Thank you, Starla Morris MD Associated attestation - Jyoti Bryant MD, PhD - 01/22/2024 10:54 AM EST I. Jyoti Bryant MD, PhD, have independently seen and examined the patient, reviewed the labs, discussed the patient with the fellow/resident and agree with the note. Associated Order(s): IP CONSULT TO HEPATOBILIARY [facility] OS Main Hepatology Consult WebExchange --> IM Consult Serv [facility] Main Hepatology consult service [...] DAY SURGERY MAIN OR KIDNEY TRANSPLANT W/O PAI[place] OF [place] NEPHRECTOMY N/A 04/12/2020 Laterality: N/A; Surgeon: LU [...] (order for outpatient) Please SecureChat or Call ([phone]) for any questions. Await attending attestation for final recommendations. Hank Noel MD Division of Gastroenterology, Hepatology, and Nutrition Clinical Fellow, PGY-5 Pager: [phone] For urgent/stat calls or consults 5pm to 7am, please page the on-call GI fellow on QGenda. [facility]--> Internal Medicine--> Gastroenterology, Hepatology, & Nutrition--> 1st [...] consults fellow or CARLOS A on QGenda. [facility]--> Internal Medicine--> Gastroenterology, Hepatology, & Nutrition--> All [...] Estrada MD, MSc documented in this encounter [facility] 01-19-2024 Nurse Note 01/19/24 0900 Vitals [...] when talking/moving. Paulette Cordon RN [facility] 01-19-2024 Nurse Note Paged overnight coverage, Jasper Gastelum MD, via pager #[phone] Pt- George Styles. Sarah 1082. TM1. Was wondering if he can have his Melatonin order increased to 6mg. Per pt, he usually takes 8mg at home. -SAMI Duffy #[phone] Tati Charles RN [facility] 01-18-2024 Consult note Associated Order (s): IP CONSULT TO HEPATOBILIARY [facility] Main Hepatology Consult WebExchange --> IM Consult Serv [facility] Main Hepatology consult service [...] DAY SURGERY MAIN OR KIDNEY TRANSPLANT W/O PAI[place] OF [place] NEPHRECTOMY N/A 04/12/2020 Laterality: N/A; Surgeon: LU [...] (order for outpatient) Please SecureChat or Call ([phone]) for any questions. Await attending attestation for final recommendations. Hank Noel MD Division of Gastroenterology, Hepatology, and Nutrition Clinical Fellow, PGY-5 Pager: [phone] For urgent/stat calls or consults 5pm to 7am, please page the on-call GI fellow on QGenda. [facility]--> Internal Medicine--> Gastroenterology, Hepatology, & Nutrition--> 1st [...] Hepatology consults fellow or CARLOS A on Aviarya. [facility]--> Internal Medicine--> Gastroenterology, Hepatology, & Nutrition--> All [...] (order for outpatient) Michael Estrada MD, MSc [facility] Work Phone: 01-16-2024 Plan of care note Internal Medicine Daily Progress Note Patient: George Styles, 1970, [id number] Physician: Arelis Mera MD, PGY3, Pager #[phone], TM1 service Assessment/Plan: George Styles is a [...] home amlodipine 5mg CAD: non-obstructive CAD on [facility] 2018. - continue home aspirin [...] rounds. Signed, Arelis Mera MD [facility] 01-16-2024 Nurse Note Mr. Styles was admitted to [address] [place] [address]. On admission to [facility], from outside facility a dual RN initial assessment of skin condition was performed by Izzy Gutierrez, RN and Leroy Singleton, SAMI. Skin Assessment: Skin within defined limits:Yes Jose Score: 20 Wound Vision Planting Supervisor images obtained: No LDA Added: No Based [...] to nurses station when available. [facility] 01-16-2024 History and physical note Images from the original note were not included. Internal Medicine Admission History & Physical Patient: George Styles, 1970, [id number] Physician: Timothy Joseph MD, PGY1, Pager #[phone], TM 1 service Date of face to [...] DAY SURGERY MAIN OR KIDNEY TRANSPLANT W/O PAI[place] OF [place] NEPHRECTOMY N/A 04/12/2020 Laterality: N/A; Surgeon: LU [...] itraconazole Fax results to: Dr. White - [phone] Transplant Neph - [phone] Gabapentin 400 MG capsule Sig: Take 1 [...] erythema: Skin: No jaundice or rash Neuro: relief docking master 3-7, 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 Strength grossly [...] home amlodipine 5mg CAD: non-obstructive CAD on [facility] 2018. - continue home aspirin 81mg daily Gout: continue home allopurinol 200mg daily BPH: continue home flomax 0.4mg daily Complexity. Obesity Body mass index is 32.8 kg/m . - Follow with PCP for dietary and lifestyle modifications. Any conditions listed below are present on admission unless otherwise specified. . DVT prophylaxis with lovenox Disposition: admitted to [facility] Code status is Full Staffed with [...] Pierson, Luisa Steven, Renee Rivera, Daisha Max Security Control Center Operator: José Miguel Garnica All Txt: 04/13/2020 [...] results found for: CYCLOSPORIN , CYCLOSPORIN2 , [id number] , CYCLORAND No results found for: SIROLIMUS [...] request in chart. Kevin Sage MD Pager [phone] [facility] 01-16-2024 History and physical note Images from the original note were not included. Internal Medicine Admission History & Physical Patient: George Styles, 1970, [id number] Physician: Timothy Joseph MD, PGY1, Pager #[phone], TM 1 service Date of face to [...] DAY SURGERY MAIN OR KIDNEY TRANSPLANT W/O PAI[place] OF [place] NEPHRECTOMY N/A 04/12/2020 Laterality: N/A; Surgeon: LU [...] itraconazole Fax results to: Dr. White - [phone] Transplant Neph - [phone] Gabapentin 400 MG capsule Sig: Take 1 [...] erythema: Skin: No jaundice or rash Neuro: relief docking master 3-7, 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 Strength grossly [...] home amlodipine 5mg CAD: non-obstructive CAD on [facility] 2018. - continue home aspirin 81mg daily Gout: continue home allopurinol 200mg daily BPH: continue home flomax 0.4mg daily Complexity. Obesity Body mass index is 32.8 kg/m . - Follow with PCP for dietary and lifestyle modifications. Any conditions listed below are present on admission unless otherwise specified. . DVT prophylaxis with lovenox Disposition: admitted to [facility] Code status is Full Staffed with [...] Pierson, Luisa Steven, Renee Rivera, Daisha Max Security Control Center Operator: José Miguel Garnica All Txt: 04/13/2020 [...] results found for: CYCLOSPORIN , CYCLOSPORIN2 , [id number] , CYCLORAND No results found for: SIROLIMUS [...] request in chart. Kevin Sage MD Pager [phone] documented in this encounter [facility] 02-13-2024 History of Present illness Narrative [facility] [...] Name: Prograf 0.2 MG Contact Info: Specialty ([place]) [phone] [facility] [phone] [facility] [phone] [facility] [phone] Bedside Delivery ([facility]) [phone] [facility] RX OUTREACH ADVANCED: Call Information: Date and Time of Contact: 01/25/2024 10:23 AM Method of Contact: By Phone Contact Type: Prescriptions Contactor: [facility] Contactee: Patient Contact Outcome: Left message (prograf myco) Contact Info: Specialty ([place]) [phone] [facility] [phone] [facility] [phone] [facility] [phone] Bedside Delivery ([facility]) [phone] documented in this encounter [facility] 01-12-2024 History of Present illness Narrative [...] Name: Prograf 0.2 MG Contact Info: Specialty ([place]) [phone] [facility] [phone] [facility] [phone] [facility] [phone] Bedside Delivery ([facility]) [phone] [facility] RX OUTREACH ADVANCED: Call Information: Date and Time of Contact: 01/25/2024 10:23 AM Method of Contact: By Phone Contact Type: Prescriptions Contactor: [facility] Contactee: Patient Contact Outcome: Left message (prograf myco) Contact Info: Specialty ([place]) [phone] [facility] [phone] [facility] [phone] [facility] [phone] Bedside Delivery ([facility]) [phone] [facility] RX OUTREACH ADVANCED: Call Information: Date and Time of Contact: 01/27/2024 10:19 AM Method of Contact: By Phone Contact Type: Prescriptions Contactor: [facility] Contactee: Patient Contact Outcome: Left message (myco prograf) Contact Info: Specialty ([place]) [phone] [facility] [phone] [facility] [phone] [facility] [phone] Bedside Delivery ([facility]) [phone] documented in this encounter [facility] 01-12-2024 History of Present illness Narrative [...] Name: Prograf 0.2 MG Contact Info: Specialty ([place]) [phone] [facility] [phone] [facility] [phone] [facility] [phone] Bedside Delivery ([facility]) [phone] [facility] RX OUTREACH ADVANCED: Call Information: Date and Time of Contact: 01/25/2024 10:23 AM Method of Contact: By Phone Contact Type: Prescriptions Contactor: [facility] Contactee: Patient Contact Outcome: Left message (prograf myco) Contact Info: Specialty ([place]) [phone] [facility] [phone] [facility] [phone] [place] [phone] Bedside Delivery ([facility]) [phone] [facility] RX OUTREACH ADVANCED: Call Information: Date and Time of Contact: 01/27/2024 10:19 AM Method of Contact: By Phone Contact Type: Prescriptions Contactor: [facility] Contactee: Patient Contact Outcome: Left message (myco prograf) Contact Info: Specialty ([place]) [phone] [facility] [phone] [facility] [phone] [place] [phone] Bedside Delivery ([facility]) [phone] [facility] RX OUTREACH ADVANCED: Call Information: Date and Time of Contact: 02/01/2024 3:22 PM Contact Type: Prescriptions Contactor: [facility] Contactee: Patient Contact Outcome: Left message Shipping/Pickup: Medication Name: Mycophenolate 360mg and Prograf 0.2mg Pack Contact Info: Specialty ([place]) [phone] [facility] [phone] [facility] [phone] [place] [phone] Bedside Delivery ([facility]) [phone] documented in this encounter [facility] 01-06-2024 History of Present illness Narrative [...] wanted to send him to [facility] neurology but it is out of [...] aorta (I70.0) documented in this encounter [facility] 10-06-2023 History of Present illness [...] Prograf 0.2 MG Contact Info: Specialty ([place]) [phone] [facility] [phone] [facility] [phone] [facility] [phone] Bedside Delivery ([facility]) [phone] [facility] RX OUTREACH ADVANCED: Call Information: Date and Time of Contact: 10/23/2023 2:00 PM Method of Contact: By Phone Contact Type: Prescriptions Contactor: [facility] Contactee: Patient Contact Outcome: Left message and Call back later Shipping/Pickup: Medication Name: Mycophenolate 360mg and Prograf 0.2mg Contact Info: Specialty ([place]) [phone] [facility] [phone] [facility] [phone] [facility] [phone] Bedside Delivery ([facility]) [phone] documented in this encounter [facility] 09-11-2023 Miscellaneous Notes Pt discharged home [...] 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 This RN [...] Patient seen ambulating in the gallo with PHYSICIAN SURGEON. Patient was mildly short of breath on [...] & HR 114. Messaged Mainor Loomis, via [employer] secure chat, Temp 100.8. His tylenol order [...] short period of time. 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 This morning, [...] [address] Loera here also (auditing specialist) Dr. Diaz aware of pt's increased [...] when available. documented in this encounter [facility] 09-11-2023 History of Present illness Narrative Provided follow-up emotional and spiritual support. Patient shared about rosemary of discharge and looking forward to seeing family Law Firm Consultant provided: - Supportive presence - Active listening - Validation of feelings/emotions Patient encouraged to request a security lead as needed. Chaplains are available in-house 24 hours a day and 7 days a week. For urgent matters in [facility], please page [phone]. If the request is not urgent, please enter a consult. Consults are responded to within 24 hours. Senior Staff Law Firm Consultant Angie Singh Mdiv, [facility] [place] [phone] [email or web address] 22/06 On-call Kirk: [phone] 22/06 Pager ,BS, and Brock Hernandez Pager [phone] 09/11/23 1430 Clinical Encounter Type Visited With Patient Visit Type Follow-up Pastoral Time Spent 15 min Referral Other (See Comment) (rounding) Spiritual Assessment Spiritual Observation Spirituality helpful Emotional Observation Coping well Hope Observation Specific hope focus Support Observation By Family Interventions Provided Active listening;Supportive presence Facilitated Verbalization of feelings Explored Expectations Gas Or Water Meter Installer Education Gas Or Water Meter Installer Service Available Yes Educated Patient Plan of Care Continue Visiting PRN Images from the original note were not included. [facility] ([facility]) Note: Non-Verbal Med Rec [facility] received the following discharge prescription(s): Total cost is $0. I have reviewed the Discharge Rx Reconciliation Report. The discharge prescription(s) will be delivered to the patient on 09/11/2023. 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 His [place] kidney disease was noted to be presumed [...] losartan 50mg BID CAD: non-obstructive CAD on [facility] 2018. - continue home aspirin [...] 5.05 (H) 11/19/2018 Kevin Sage MD, SERA Crozer of Clinical Medicine [facility] Images from the original note were not included. Final Discharge Planning and Transportation Final Discharge Planning Discharge Disposition: Home Services at Discharge: Outpatient clinical services (ie: lab draws, transfusions, injectables) (Home Oxygen by [facility]) Selected Continued Care - Admitted Since 08/28/2023 Durable Medical Equipment Coordination complete. Service Provider Selected Services Address Phone Fax Patient Preferred [facility] Durable Medical Equipment [address] [facility] [address] [phone] Internal Comment last updated by Lora Lawrence RN 09/10/2023 1334 Correct contact information: [employer] [address] [place] [address] [place] [address] erp business analyst- you do not need to call at discharge, I already notified the company. Addendum 1526 [facility] notified this CM they are out of patient's insurance area and will not be able to service this patient at time of discharge. Provider notified. 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 Patient [...] Lora Colón RN, MSN, CCM, CMCN Clinical Community Services Officer- [facility] Transplant #[phone] Department of Pharmacy Transplant Note Patient: George [...] dose adjustment Name: Matt Kramer RPh,PharmD Phone: [phone] Date/Time: 09/10/2023 11:33 AM This CM sent referral via [employer] for O2 concentrator to 4 agencies Start date today Timer set for 1330 [employer] [facility] [facility] [employer] Addendum 1332 One accepting company reserved in [facility] [employer] [address] [place] [address] Lora Colón RN, MSN, CCM, CMCN Clinical Community Services Officer- [facility] Transplant #[phone] NUTRITION FOLLOW-UP Nutrition Plan of Care: 1. Continue current diet order. 2. No oral supplements warranted at this time. 3. Monitor for significant weight changes. Monitor GI, skin integrity. 4. Monitor and encourage po intakes with goal of average po being 75-100%. 5. clinical tech to follow. ___ Met with patient [...] time. Will continue to monitor. RHIANNON BirminghamR Pager:[phone] Transplant Infectious Disease (Team 3) Progress Note [...] sign off. Please Epic message or page [phone] with questions. 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 His [place] kidney disease was noted to be presumed [...] losartan 50mg BID CAD: non-obstructive CAD on [facility] 2018. - continue home aspirin [...] to follow. Please Epic message or page [phone] with questions. 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 His [place] kidney disease was noted to be presumed [...] losartan 50mg BID CAD: non-obstructive CAD on [facility] 2018. 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 His yavapai-apache kidney disease was noted to be presumed [...] losartan 50mg BID CAD: non-obstructive CAD on [facility] 2018. - continue home aspirin [...] 5.05 (H) 11/19/2018 Kevin Sage MD, SERA Crozer of Clinical Medicine [facility] Transplant Infectious Disease [...] to follow. Please Epic message or page [phone] with questions. Ann Marie Haskins MD PGY-4, [...] he continues to improve. Please message via [facility] secure chat or page with any questions or concerns. Evan White DO Crozer Division of Infectious Disease Transplant Infectious Disease [...] to follow. Please Epic message or page [phone] with questions. Evan Whiet DO Transplant Infectious Diseases Images from the original note were not included. Pulmonary/Critical Care Medicine Daily Progress Note Reason for Consultation: bronch for infectious workup Requesting Physician: Dr. Sage CURRENT HOSPITALIZATION: Admit Date: 08/28/2023 [facility] Hospital LOS: 9 days Impression 1. [...] and interpreted reviewed the radiographic data in [facility]/Richard Pauer - 3P/[place]. 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 His yavapai-apache kidney disease was noted to be presumed [...] losartan 50mg BID CAD: non-obstructive CAD on [facility] 2018. - continue home aspirin [...] 5.05 (H) 11/19/2018 Kevin Sage MD, MADISONN Crozer of Clinical Medicine [facility] Images from the original note were not included. Pulmonary/Critical Care Medicine Daily Progress Note Reason for Consultation: bronch for infectious workup Requesting Physician: Dr. Sage CURRENT HOSPITALIZATION: Admit Date: 08/28/2023 [facility] Hospital LOS: 8 days Impression [...] and interpreted reviewed the radiographic data in [facility]. Acute Occupational Therapy Evaluation Prior [...] Assessment: Transfer Assessment: Sit to Stand Transfer Broadway Level: Sit->Stand: independent Skilled Intervention/Details: Sit->Stand: x1 from EOB, x1 from toilet Stand to Sit Transfer Broadway Level: Stand->Sit: independent Skilled Intervention/Details: Stand->Sit: x1 to toilet, x1 to EOB Functional Mobility: Functional Mobility Broadway Level: Functional Mobility/Gait: independent Ambulation Distance (Feet): [...] CURRENT AM-PAC Activity Raw Score: 21 CURRENT AM-[facility] Activity Functional Limitation/Modifier: 32.79% Currently Impaired [...] Acute Physical Therapy Evaluation Prior to Admission [facility] score(s): PRIOR LEVEL AM-PAC Mobility Raw [...] Intact Mobility Assessment: Supine to Sit Mobility Broadway Level: Supine->Sit: modified independence Bed Features/Set-up: Supine->Sit: Head of bed elevated Sit to Supine Mobility Broadway Level: Sit->Supine: not tested Balance: Sitting Balance [...] environment. Transfer Assessment: Sit to Stand Transfer Broadway Level: Sit->Stand: independent Skilled Intervention/Details: Sit->Stand: From EOB x 2 without difficulty. Stand to Sit Transfer Broadway Level: Stand->Sit: independent Assistive Device: Stand->Sit: armed chair Skilled Rationale: Verbal cues, Positioning Gait/Functional Mobility: Gait Assessment Broadway Level: Gait: stand-by assist Assistive Device: Gait: rollator Ambulation Distance (Feet): 400 Gait Deviations Identified: decreased grace, decreased gait speed Gait Skilled Rationale: verbal, upright posture, increase step length, increase foot clearance Skilled Intervention/Details - Gait: Reasonable foot clearnce without loss of balance but endorsing dyspnea as 6-7/10. 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 His yavapai-apache kidney disease was noted to be presumed [...] losartan 50mg BID CAD: non-obstructive CAD on [facility] 2018. - continue home aspirin [...] 5.05 (H) 11/19/2018 Kevin Sage MD, SERA Crozer of Clinical Medicine [facility] Transplant Infectious Disease [...] to follow. Please Epic message or page [phone] with questions. Evan White DO Transplant Infectious Diseases Images from the original note were not included. Internal Medicine Daily Progress Note Patient: George Styles, 1970, [id number] Physician: Evan Kelly MD, PGY-1, TM1 service [...] s/p combined Liver-kidney transplant on 04/13/20. His yavapai-apache kidney disease was noted to be presumed [...] losartan 50mg BID CAD: non-obstructive CAD on [facility] 2019. - continue home aspirin [...] P 450 system Kevin Sage MD, SERA Crozer of Clinical Medicine [facility] ERT Note: ERT [...] MD, PhD Internal Medicine and Pediatrics PGY-3 [facility] Brief plan of care update: Called [...] MD, PhD Internal Medicine and Pediatrics PGY-3 [facility] Transplant Infectious Disease (Team 3) Progress [...] to follow. Please Epic message or page [phone] with questions. Evan White DO Transplant Infectious Diseases Internal Medicine Daily Progress Note Patient: George Styles, 1970, [id number] Physician: Evan Kelly MD, PGY-1, TM1 service [...] s/p combined Liver-kidney transplant on 04/13/20. His yavapai-apache kidney disease was noted to be presumed [...] 2/2 renal function CAD: non-obstructive CAD on [facility] 2018. - continue home aspirin [...] 5.05 (H) 11/19/2018 Kevin Sage MD, SERA Crozer of Clinical Medicine [facility] Internal Medicine Daily Progress Note Patient: George Styles, 1970, [id number] Physician: Evan Kelly MD, PGY-1, TM1 service [...] s/p combined Liver-kidney transplant on 04/13/20. His yavapai-apache kidney disease was noted to be presumed [...] 2/2 renal function CAD: non-obstructive CAD on [facility] 2018. - continue home aspirin [...] 5.05 (H) 11/19/2018 Kevin Sage MD, FASN Crozer of Clinical Medicine [facility] Progression of [...] Lora Colón RN, MSN, CCM, CMCN Clinical Community Services Officer- R10 Transplant #[phone] Made introductory visit with patient. Provided emotional and spiritual support. Patient shared about: - Source of Rosemary: Camping/Fishing/Family - Spirituality/Orthodox Affiliation: raised Synagogue - Family Support/history - Experience with illness/hospital course - Hopes for healing/future Law Firm Consultant provided: - Supportive presence - Active listening - Validation of feelings/emotions - Pledged prayer Patient encouraged to request a security lead as needed. Chaplains are available in-house 24 hours a day and 7 days a week. For urgent matters in [facility], please page [phone]. If the request is not urgent, please enter a consult. Consults are responded to within 24 hours. Senior Staff Law Firm Consultant Angie Singh Mdiv, [facility] [place] [phone] [email or web address] 22/06 On-call Kirk: [phone] 22/06 Pager ,BS, and Brock Hernandez Pager [phone] 09/02/23 1660 Clinical Encounter Type Visited With Patient Visit Type Introduction Pastoral Time Spent 15 min Referral Other (See Comment) (rounding) Spiritual Assessment Spiritual Observation Spirituality helpful Emotional Observation Coping well Hope Observation Specific hope focus Support Observation By Family Interventions Provided Active listening;Supportive presence Facilitated Verbalization of feelings Explored Expectations Gas Or Water Meter Installer Education Gas Or Water Meter Installer Service Available Yes Educated Patient Outcomes Patient Outcomes Reduced distress Plan of Care Continue Visiting PRN NUTRITION RISK SCREENING NOTE Nutrition Plan of Care: 1. Continue current diet order. 2. No oral supplements warranted at this time. 3. Monitor for significant weight changes. Monitor GI and skin integrity. 4. Monitor and encourage po intakes with goal of average po being 100%. 5. clinical tech to follow. George Styles is a 53 y.o. 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 His yavapai-apache kidney disease was noted to be presumed hepatorenal syndrome. His post-transplant course was noteworthy for nephrostomy tube (05/17/2022-09/10/2022) due to concern for ureteral stone. He presents as a direct admission for fever, cough, for infectious workup. Pt unavailable and information obtained via chart review Petal Cutter Screening Pt's appetite is good. Pt with [...] with meds Food Allergies reviewed:Shellfish Cultural or Orthodox Restrictions/Preferences: None GI: Last Bowel Movement: 09/01/23 [...] time. Will continue to monitor. RHIANNON BirminghamR Pager:[phone] Internal Medicine Daily Progress Note Patient: George Styles, 1970, [id number] Physician: Evan Kelly MD, PGY-1, TM1 service [...] s/p combined Liver-kidney transplant on 04/13/20. His yavapai-apache kidney disease was noted to be presumed [...] 2/2 renal function CAD: non-obstructive CAD on [facility] 2018. - continue home aspirin [...] as outlined above. Kevin Sage MD Pager [phone] Summary: Pharmacy Med Rec Department of Pharmacy [...] Provider: Zuly Bruno NP [place] [facility] [place] Other Comments: Patient reported his Last Home Dose of mycophenolate & tacrolimus was on 08/28/23 at 0900. Patient reported he was taking Bactrim and benzonatate for fevers and a cough he was having. Please feel free to contact me with any further questions. Name: Heidy Chatman Phone #: [phone] Date/Time: 09/01/2023 2:01 PM Time Spent: 15 minutes Associated attestation - Matt Kramer RPh,PharmD - 09/01/2023 2:28 PM EDT Department of Pharmacy Admission Medication Reconciliation Note Patient: George Styles Room/Bed: 1062/A I have reviewed the home medication list with the Simulation Tech. All changes to the home medication list have been updated in [facility]. Updated SENIOR LIVING ADVISOR Med List: Prior to Admission Medications Prescriptions [...] questions. Name: Matt Kramer RPh,PharmD Phone #: [phone] Date/Time: 09/01/2023 2:28 PM Transplant Infectious Disease [...] crypto antigen, EBV PCR -follow pending histo, silvap16 labs These recommendations were discussed with the primary team. Transplant ID (Team 3) will continue to follow. Please Epic message or page [phone] with questions. Evan White DO Transplant Infectious Diseases Internal Medicine Daily Progress Note Patient: George Styles, 1970, [id number] Physician: Evan Kelly MD, PGY-1, TM1 service [...] s/p combined Liver-kidney transplant on 04/13/20. His yavapai-apache kidney disease was noted to be presumed [...] 2/2 renal function CAD: non-obstructive CAD on [facility] 2018. - continue home aspirin [...] 5.05 (H) 11/19/2018 Kevin Sage MD, SERA Crozer of Clinical Medicine [facility] Discharge Planning Patient [...] Yes Name and Contact information: Gian Styles ([phone]) Reviewed and Updated in Demographics? : Yes [...] patient on Anticoagulation? 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 : No Employed?: Disabled Coping/Stress Concerns about patient s coping and stress?: No Concerns about patient s caregiver s coping and stress?: No Values and Beliefs Cultural or sabianist practices that may impact discharge planning and/or [...] Plan 1. Identified self and role as Community Services Officer. 2. Confirmed and updated demographics and treatment team. 3. Community Services Officer will continue to follow with medical team/pt for any other additional discharge needs. Kasandra DON RN *Please note I am float CM and work Thursday and Thursday every other week. Please call [phone] for assist in my absence. Internal Medicine Daily Progress Note Patient: George Styles, 1970, [id number] Physician: Evan Kelly MD, PGY-1, TM1 service [...] s/p combined Liver-kidney transplant on 04/13/20. His yavapai-apache kidney disease was noted to be presumed [...] 2/2 renal function CAD: non-obstructive CAD on [facility] 2018. - continue home aspirin [...] 5.05 (H) 11/19/2018 Kevin Sage MD, SERA Crozer of Clinical Medicine [facility] Internal Medicine Daily Progress Note Patient: George Styles, 1970, [id number] Physician: Laurel Serrano MD, PhD, PGY-3, TM1 [...] s/p combined Liver-kidney transplant on 04/13/20. His yavapai-apache kidney disease was noted to be presumed [...] losartan 50mg BID CAD: non-obstructive CAD on [facility] 2018. - continue home aspirin 81mg daily, atorvastatin 20mg daily Gout: continue home allopurinol 200mg daily BPH: continue home flomax 0.4mg daily DVT PPX: SQH Code Status: Full Code Disposition: Pending clinical course. Anticipate eventual discharge home. Discussed with team and attending, Kevin Sage MD, on rounds. Signed, Laurel Serrano MD, PhD documented in this encounter [facility] 09-10-2023 Hospital Discharge [...] on healthy foods. documented in this encounter [facility] 09-01-2023 Consult note Associated Order (s): IP CONSULT TO PULMONOLOGY Pulmonary Medicine Inpatient Consultation Reason for Consultation: bronch for infectious workup Requesting Physician: Dr. Sage Pulmonary Attending Physician: Dr. Diaz CURRENT HOSPITALIZATION: Admit Date: 08/28/2023 [facility] Hospital LOS: 4 days Impression/Recommendations: [...] Recommendations: - Plan to bronch tomorrow morning. NPO@NE, order placed - would repeat HIV, last [...] short period of time. 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 Other histories as documented in the [...] had any ill contacts. He traveled to [place] to [facility] in May. REVIEW OF [...] DAY SURGERY MAIN OR KIDNEY TRANSPLANT W/O PAIUTE OF UTAH NEPHRECTOMY N/A 04/12/2020 Laterality: N/A; Surgeon: LU [...] Alamo MD I can be reached via [facility] secure message (preferred) or Pager #[phone] documented in this encounter [facility] 08-28-2023 History and physical note Images from the original note were not included. Internal Medicine Admission History & Physical Patient: George Feliz Jensen, 1970, [id number] Physician: Aric Turner MD, PGY1, Pager #[phone], service Date of face to face patient [...] So he went to see the transplant merchandiser retail representative. He was found elevated Cr and asked [...] Appetite is ok now. Urine is about 5772-9906 ml every day. Stool every day, no [...] DAY SURGERY MAIN OR KIDNEY TRANSPLANT W/O PAIUTE OF UTAH NEPHRECTOMY N/A 04/12/2020 Laterality: N/A; Surgeon: LU [...] s/p combined Liver-kidney transplant on 04/13/20. His yavapai-apache kidney disease was noted to be presumed [...] Urinary histoplasmosis - PJP, candid PCR - Fws Faculty Assistant transplant ID Acute Kidney Injury with Kidney [...] losartan 50mg BID CAD: non-obstructive CAD on [facility] 2018. - continue aspirin 81mg [...] Pierson, Luisa Steven, Renee Rivera, Daisha Max Security Control Center Operator: José Miguel Garnica All Txt: 04/13/2020 [...] results found for: CYCLOSPORIN , CYCLOSPORIN2 , [id number] , CYCLORAND No results found for: SIROLIMUS [...] Rest as above. Kevin Sage MD Pager [phone] documented in this encounter [facility] 08-28-2023 History of Present illness Narrative Images from the original note were not included. 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 Security Control Center Operator: Anayeli Burt Date of Liver Transplant: 04/13/2020 (Kidney), 04/13/2020 (Liver) 3 years 4 months post Liver/Kidney Transplant Primary Disease: Hypertensive Nephrosclerosis Transplant Net Architect: Erma Roe/ Daisha Max Primary Care physician: [...] faMOTIdine === None Specified Preferred Lab: [facility] Change in lab frequency / new [...] 12 hours. ADDITIONAL INFORMATION: None Specified, [id number] [place] [address] - [address] [facility] [address] [facility] [address] [facility] [address] [place] [address] [id number] [place] [address] [address] [facility] [address] [facility] [address] [facility] [address], [address] [facility] [address] ROS and SCREEN: Chest Pain: negative Cough: [...] PHYSICIAN: I saw George Styles at the [facility] on 08/28/2023. Patient is a 53 y.o. 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 His yavapai-apache kidney disease was noted to be presumed [...] DAY SURGERY MAIN OR KIDNEY TRANSPLANT W/O PAIUTE OF UTAH NEPHRECTOMY N/A 04/12/2020 Laterality: N/A; Surgeon: UL Palma; Location: [facility] SAME DAY SURGERY [...] you have any questions. Steve Latham MD manager client support Division of Nephrology [facility] documented in this encounter [facility] 08-28-2023 Instructions Mainor Busby RN - 08/28/2023 2:15 PM EDT - Admission for fevers, cough, and night sweats documented in this encounter [facility] 08-19-2023 History of Present illness Narrative [facility]REACH [facility]ANC[facility]: Call Information: Date and Time of Contact: 08/19/2023 2:52 PM Method of Contact: By Phone Contact Type: Prescriptions Contactor: [facility] OP Contactee: Patient Shipping/Pickup: Medicare B Refill?: No Medication Name: Tacro 0.5mg Delivery Method: Air Delivery Location: Home Signature Required: No Mailing/Pickup Date: 08/25/2023 Shipping Address: [address] [place] [address] [address] Contact Info: Specialty ([place]) [phone] Jakob [phone] [facility] [phone] David [phone] Bedside Delivery ([facility]) [phone] documented in this encounter [facility] 06-12-2023 History of Present illness Narrative Images from the original note were not included. George Styles is a 53 y.o. 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 No longer follows with a local merchandiser retail representative. History of Present Illness: Since George was [...] and lab results. Rebeca Gutierrez MSN, RN, SHEET ROCK APPLIER-BC, CCTN Certified Nurse Practitioner [facility] [address] [facility] [address] documented in this encounter [facility] 06-12-2023 Instructions JEANNA Hess - 06/12/2023 3:00 PM EDT No change in immunosuppression. documented in this encounter [facility] 06-10-2023 History of Present illness Narrative [facility] OUTREACH ADVANCED: Call Information: Method of Contact: By Phone Contact Type: Prescriptions Contactor: [facility] OP Contactee: Patient Contact Outcome: Left message Shipping/Pickup: Medication Name: Mycophenolate sod 180 mg Contact Info: Specialty ([place]) [phone] Jakob [phone] [facility] [phone] David [phone] Bedside Delivery ([facility]) [phone] [facility]REACH [facility]ANCED: Call Information: Date and Time of Contact: 06/12/2023 9:43 AM Method of Contact: By Phone Contact Type: Prescriptions Contactor: [facility] OP Contactee: Patient Contact Outcome: Left message and Follow-up Shipping/Pickup: Medicare B Refill?: No Medication Name: Myco 180 Contact Info: Specialty ([place]) [phone] Jakob [phone] [facility] [phone] David [phone] Bedside Delivery ([facility]) [phone] [facility] RX OUTREACH ADVANCED: Call Information: Date and Time of Contact: 06/12/2023 10:08 AM Method of Contact: By Phone Contact Type: Prescriptions Contactor: [facility] OP Contactee: Patient Shipping/Pickup: Medicare B Refill?: No Medication Name: Mycophenolate 180mg DR Delivery Method: Air Delivery Location: Home Signature Required: No Mailing/Pickup Date: 06/17/2023 Shipping Address: [address] [place] [address] Contact Info: Specialty ([place]) [phone] Jakob [phone] [facility] [phone] David [phone] Bedside Delivery ([facility]) [phone] documented [facility] encounter [facility] 03-12-2023 History of Present illness Narrative [facility] RX OUTREACH ADVANCED: Call Information: Date and Time of Contact: 03/12/2023 10:34 AM Method of Contact: By Phone Contact Type: Prescriptions Contactor: [facility] OP Contactee: Patient Shipping/Pickup: Medicare B Refill?: No Medication Name: Mycophenoloate sod 360 mg prednisone 5mg Delivery Method: Air Delivery Location: Home Signature Required: No Mailing/Pickup Date: 03/16/2023 Shipping Address: [address] [facility] [address] Contact Info: Specialty ([place]) [phone] [facility] [phone] [facility] [phone] David [phone] Bedside Delivery ([facility]) [phone] [facility] RX OUTREACH ADVANCED: Call Information: [...] No Mailing/Pickup Date: 03/19/2023 Shipping Address: [address] [facility] [address] Contact Info: Specialty ([place]) [phone] [facility] [phone] [facility] [phone] David [phone] Bedside Delivery ([facility]) [phone] documented in this encounter [facility] 03-10-2023 History of Present illness Narrative [facility]REACH ADVANCED: Call Information: Date and Time of Contact: 03/10/2023 12:00 PM Method of Contact: By Phone Contact Type: Prescriptions Contactor: [facility] OP Contactee: Patient Contact Outcome: Left message and Call back later Shipping/Pickup: Medication Name: Mycophenolate ; Tacrolimus Contact Info: Specialty ([place]) [phone] [facility] [phone] [facility] [phone] David [phone] Bedside Delivery ([facility]) [phone] documented in this encounter [facility] 03-10-2023 History of Present illness Narrative [facility] OUTREACH ADVANCED: Call Information: Date and Time of Contact: 03/10/2023 12:00 PM Method of Contact: By Phone Contact Type: Prescriptions Contactor: [facility] OP Contactee: Patient Contact Outcome: Left message and Call back later Shipping/Pickup: Medication Name: Mycophenolate ; Tacrolimus Contact Info: Specialty ([place]) [phone] [facility] [phone] [facility] [phone] David [phone] Bedside Delivery ([facility]) [phone] [facility] RX OUTREACH ADVANCED: Call Information: Date and Time of Contact: 03/12/2023 10:32 AM Method of Contact: By Phone Contact Type: Prescriptions Contactor: [facility] OP Contactee: Patient Contact Outcome: Left message Shipping/Pickup: Medication Name: Mycophenolate sodium (MYFORTIC) 180 MG Tab tacrolimus 0.5 mg Contact Info: Specialty ([place]) [phone] [facility] [phone] [facility] [phone] David [phone] Bedside Delivery ([facility]) [phone] documented in this encounter [facility] 01-16-2023 History of Present illness Narrative -Referring Provider for today's consult: Daisha Max DO -Primary Care Provider: Zuly Bruno History of Present Illness George Styles is a 52 y.o. male who presents to the [facility] Transplant Hepatology Clinic today for [...] DAY SURGERY MAIN OR KIDNEY TRANSPLANT W/O PAIUTE OF UTAH NEPHRECTOMY N/A 04/12/2020 Laterality: N/A; Surgeon: LU [...] 0.3 12/29/2022 Explant Pathology Pathologic Diagnosis A. [place] liver, orthotopic liver transplant resection (1458 gram): [...] A/P with IV contrast (06/27/2022): 1. Both [place]avapai-apache kidneys are atrophic with improvement in right-sided [...] frequent nighttime urination, etc). Daisha Max DO [facility]at[facility] Nutrition [facility] Pager: [phone] Images from the original note were not included. 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 Security Control Center Operator: Anayeli Burt Date of Liver Transplant: 04/13/2020 (Kidney), 04/13/2020 (Liver) 2 years, 8 months post Liver/Kidney Transplant Primary Disease: Hypertensive Nephrosclerosis Transplant Net Architect: Steve Latham Primary Care physician: Zuly Bruno [...] levels: No results found for: CYCLOSPORIN, CYCLOSPORIN2, [id number], CYCLORAND No components found for: CYCLOSPORINE, 2HR [...] hours. ADDITIONAL INFORMATION: None Specified [id number] [place] [address] - [address] [facility] [address] [facility] [address] [facility] [address] [facility] [place] [address] [facility][id number] [place] [address] [address] [facility] [address] [place] [address] [facility]ob [address], [facility] [address] [address] ROS and SCREEN: Chest Pain: negative Cough: [...] ADDRESS WITH PHYSICIAN: documented in this encounter [facility] 01-16-2023 Instructions José Miguel Garnica RN - 01/16/2023 9:40 AM EST - Labs Every 2 months - Discuss night time urination with your PCP - Schedule Colonoscopy through PCP - Follow up in 1 year documented in this encounter [facility] 09-10-2022 History of Present illness Narrative UROLOGY CLINIC NOTE Reason for Appointment: BPH with LUTS HPI: Patient is a 52 yo male with a DDRT to the [facility] in 2019. Nephrostomy tube placed [...] and no hydronephrosis. Some reflux up the [place]avapai-apache right ureter but good drainage of both transplant and [place]avapai-apache ureter to the bladder. Nephrostomy tube was [...] transplant, orthotopic (N/A, 04/12/2020); kidney transplant w/o yavapai-apache nephrectomy (N/A, 04/12/2020); and placement nephrostomy catheter [...] Negative for , diarrhea, constipation Genitourinary: See KOTLIK Neurological: Negative for headaches. Lymph/Heme: Negative for [...] x 4, Normal strength. No edema. Skin: [place], warm, and dry. There are no rashes [...] and no hydronephrosis. Some reflux up the [place]avap[place]-apache right ureter but good drainage of both transplant and [place]-apache ureter to the bladder. Nephrostomy tube was [...] MD 09/10/22 documented in this encounter [facility] 07-07-2022 History of Present illness Narrative [...] to have transplant ureter with anastomosis to yavap[place]-apache right ureter. Nephrostogram without filling defects and no hydronephrosis. Some reflux up the [place]-apache right ureter but good drainage of both transplant and [place]avap[place]-apache ureter to the bladder. Nephrostomy tube was removed without issue. Patient does have some sensation of incomplete bladder emptying and occasional sensation in his right flank. PVR today was 33cc. Will re-evaluate urinary symptoms at next appointment. --continue Flomax --RTC in one month flow flow/PVR/IPSS Patient to call with any additional questions or concerns. Ryan Yepez MD 07/07/22 documented in this encounter [facility] 06-27-2022 History of [...] transplant, orthotopic (N/A, 04/12/2020); kidney transplant w/o [place]avap[place]-apache nephrectomy (N/A, 04/12/2020); and placement nephrostomy catheter [...] Negative for , diarrhea, constipation Genitourinary: See KOTLIK Neurological: Negative for headaches. Lymph/Heme: Negative for [...] x 4, Normal strength. No edema. Skin: [place], warm, and dry. There are no rashes [...] with a DDRT to the [facility] in 2019. Nephrostomy tube placed [...] if needed. documented in this encounter [facility] 06-27-2022 History and physical note Patient was evaluated in clinic as a nurse visit. Please refer to Rena Brewster's note. [facility] Work Phone: 06-27-2022 History and physical note Patient was evaluated in clinic as a nurse visit. Please refer to Rena Brewster's note. documented in this encounter [facility] 06-27-2022 History of Present illness Narrative TEACHING REGARDING TX NEPH COMPLETED-NEPH TUBE SITE DRY AND INTACT-CLEAR YELLOW URINE IN THE BAG-INSTRUCTED ABOUT FLUSHING, BAG CHANGING ETC. NUMEROUS QUESTIONS ASKED AND ANSWERED-VERBALIZED UNDERSTANDING documented in this encounter [facility] 06-18-2022 Note EXAMINATION: CT ABD/ PELVIS [...] mass or enlargement. KIDNEYS: Marked atrophy of yavapai-apache kidneys. Transplant right pelvic kidney with percutaneous [...] authenticated by: MÓNICA JIMENEZ Date: 2022-06-18 13:53 [facility] 06-12-2022 Instructions Anayeli Christianson RN - 06/12/2022 3:21 PM EDT Do not take apart/disrupt nephrostomy tube system. Call Interventional Radiology and/or on-call transplant nurse [phone] for instruction if need to flush (clot or decreased flow). Take cipro 500mg, one tablet, twice per day for 14 days documented in this encounter [facility] 06-12-2022 History of Present illness Narrative Images from the original note were not included. 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 Security Control Center Operator: Anayeli Burt Date of Liver Transplant: 04/13/2020 (Kidney), 04/13/2020 (Liver) 2 year, 1 months post Liver/Kidney Transplant Primary Disease: Hypertensive Nephrosclerosis Transplant Net Architect: Steve Latham Primary Care physician: Zuly Bruno [...] Non-obstructing kidney stone in renal graft at [facility]. Percutaneous Neph Tube placed Images from the original note were not included. Nursing Assessment In Clinic (see Clinic Prep Sheet for additional information) Patient is accompanied to clinic today by: self Did patient require a wheelchair or medical transport for appointment: no Did front facer confirm current address and insurance information is [...] PREFERRED LAB AND PHARMACY: None Specified [facility] [place] [id number] - [address] [address] [facility] [address] , [address] [facility] [address] [id number] [place] [address] [address] [address] [facility] [address] [facility] Jakob [address], [place] [address] [facility] [address] ROS and SCREEN: Chest Pain: negative Cough: negative SOB: negative Abd Pain: negative Nausea: positive Vomiting: negative Diarrhea: negative Constipation: negative Dysuria: positive Edema: negative Tremors: negative Headaches: negative Wound issues: negative Pt has neph tube w clear yellow urine. States he had a small clot that he dislodged QUESTIONS OR CONCERNS TO ADDRESS WITH PHYSICIAN: I saw George Styles at the [facility] on 06/12/2022. Patient is a 52 y.o. 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 His [place]avapai-apache kidney disease was noted to be presumed [...] DAY SURGERY MAIN OR KIDNEY TRANSPLANT W/O PAIUTE OF UTAH NEPHRECTOMY N/A 04/12/2020 Laterality: N/A; Surgeon: LU [...] you have any questions. Steve Latham MD manager client support Division of Nephrology [facility] documented in this encounter [facility] 06-04-2022 Instructions TATI GROVE - 06/04/2022 11:04 AM EDT Thank you for joining us for your neph tube follow up. We recommend routine exchange every 8-10 weeks. Please reach out at [phone] when it is time to set your next routine exchange. Thank you IR clinic documented in this encounter [facility] 06-04-2022 History of Present illness Narrative [...] exchange. Verbalized understanding. documented in this encounter [facility] 05-20-2022 Note Formatting of this n [...] time of his discharge. Leon Cook RN [facility] 05-20-2022 Miscellaneous Notes Patient discharged. AVS [...] provide teaching before his discharge Leon RN #[id number] Leon Cook RN Afternoon assessment completed at [...] Rounds/Family Conf Outcome: Ongoing Discussed with [facility] re: possible urine culture performed at [...] with questions. Evan Byrd MD Urology, PGY-2 #[id number] I certify that this patient requires inpatient [...] Kallie Salomón, RN documented in this encounter [facility] 05-20-2022 Note Formatting of this n [...] discharge/transition of care. Outcome: Adequate for Discharge [facility] 05-20-2022 Note Formatting of this n ote might be different from the original. Tung Dillard MD R10 Rm 1006 Jensen George Please let's have a clear order on how the nephrostomy site dressing need to be changed when the patient goes home so we provide teaching before his discharge Leon RN #[id number] Leon Cook RN [facility] 05-20-2022 History of Present illness Narrative Images from the original note were not included. [facility] ([facility] Note: [facility] received the following discharge prescription(s): Medication reconciliation was completed with comparison to discharge reconciliation report. The prescription(s) will be delivered to the patient's bedside on 05/20/22. Total cost is $0. Yanira Her RPh,PharmD Specialty ([place]) [phone] [facility] [phone] [facility] [phone] David [phone] [place] [phone] [facility]side [facility] [phone] Attending I saw George Styles at the [facility] on 05/19/2022. I saw and independently [...] Daily Progress Note Patient: George Styles, 1970, [id number] Physician: Liam Julian MD, PGY-3, Pager #[phone], [email or web address] Subjective/Interval History: No acute events overnight. Passed [...] MD (Peggy) Division of Hospital Medicine Pager [phone] Attending I saw George Styles at the [facility] on 05/18/2022. I saw and independently [...] prevent future stones Can remove matias Maxi rPingle MD Internal Medicine Daily Progress Note Patient: George Styles, 1970, [id number] Physician: Nishant Gamez MD, PGY2, Pager #[phone], [email or web address] Subjective/Interval History: Nephrostomy tube placed yesterday with a lot of urine output and significant improvement in creatinine. Objective: Vitals: 05/18/22 0410 BP: 190/86 Pulse: 83 Resp: 18 Temp: 98.4 F (36.9 C) O2 Device: room air (05/18/22 0410) Flow (L/min): 3 (05/17/22 1012) Gen: NAD, well-appearing HENT: NCAT, EOMI, MMM [...] to have stablized for this to be support representative. Daya (Aggie Saldana MD Division of Hospital Medicine Pager [phone] Internal Medicine Daily Progress Note Patient: George Styles, 1970, [id number] Physician: Nishatn Gamez MD, PGY2, Pager #[phone], [email or web address] Subjective/Interval History: Worsening creatinine this morning with [...] Saldana MD Division of Hospital Medicine Pager [phone] Attending I saw George Styles at the [facility] on 05/17/2022. I saw and independently [...] of chart and discussion with treatment team, Community Services Officer has not identified needs at this time. [...] follow. Introduced self and role of the security lead to patient. Provided emotional and spiritual support and the patient responded by sharing their experience and discussed the following: - Spirituality/Orthodox Affiliation: As a kid attended Synagogue restoration but not a strong identity now - Family support - pt's brothers live close by Law Firm Consultant provided: - Supportive presence - Active listening - Validation of feelings/emotions Patient encouraged to request a security lead as needed. Chaplains are available in-house 24 hours a day and 7 days a week. For urgent matters in [facility], please page [phone]. If the request is not urgent, please enter a consult. Consults are responded to within 24 hours. Angie Singh Mdiv, BCC Burn Unit and Transplant [place] [address] Law Firm Consultant [facility] Law Firm Consultant [place] [phone] [email or web address] 22/06 [facility] Pager [phone] 22/06 Pager ,[facility], and [place] 1500 22/06 David Pager [phone] 05/16/22 1129 Clinical Encounter Type Visited With Patient Visit Type Introduction Pastoral Time Spent 15 min Referral Other (See Comment) (Rounding) Spiritual Assessment Spiritual Observation Spirituality helpful;Identifies as (see comment) (Adventism) Emotional Observation Coping well Hope Observation Hopeful and accepting Support Observation By Family Interventions Provided Active listening;Supportive presence Facilitated Verbalization of feelings;Sharing of life story;Identifying support system Explored Expectations Gas Or Water Meter Installer Education Gas Or Water Meter Installer Service Available Yes Educated Patient Outcomes Patient Outcomes Articulated purpose/meaning Plan of Care Continue Visiting PRN Internal Medicine Daily Progress Note Patient: George Styles, 1970, [id number] Physician: Nishant Gamez MD, PGY2, Pager #[phone], [email or web address] Subjective/Interval History: Overall feeling okay this morning. 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 [...] Supervision Transfer Assessment: Sit to Stand Transfer Broadway Level: Sit->Stand: independent Skilled Intervention/Details: Sit->Stand: x1 from EOB Stand to Sit Transfer Broadway Level: Stand->Sit: supervision Assistive Device: Stand->Sit: armed chair Skilled Rationale: Controlled descent for sitting, Verbal cues Gait/Functional Mobility: Gait Assessment Broadway Level: Gait: supervision Assistive Device: Gait: gait belt Gait Distance (feet): 200 Gait Deviations Identified: decreased grace, decreased step length, decreased stride length Gait Skilled Rationale: verbal, upright posture Skilled Intervention/Details - Gait: Pt with steady gait without LOB or complaints of SOB. Stairs: Stairs Assessment Broadway Level: Stair Negotiation: stand-by assist Assistive Device: Stair Negotiation: gait belt, left rail (ascending) Number of stairs: 9 Stairs Skilled Rationale: reciprocal pattern Outcome Score(s): CURRENT [facility] Basic Mobility Inpatient Short Form Turning over in bed: 4 - No Assistance Sitting/standing from chair: 4 - No Assistance Moving from lying on back to sittin - No Assistance Moving to and from bed to chair: 4 - No Assistance Walk in hospital room: 3 - A Little Assistance Climbing 3-5 steps with a railin - A Little Assistance CURRENT [facility] Mobility Raw Score: 22 CURRENT [facility] Mobility Functional Limitation/Modifier: 20.91% Currently [...] reported no concerns with discharging home with [place] support. 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 IADL History IADLs: independent Primary Language: [place] Home Management Skills: independent Meal Prep Responsibility: [...] Assessment: Transfer Assessment: Sit to Stand Transfer Broadway Level: Sit->Stand: independent Skilled Rationale: Cues for increased safety Skilled Intervention/Details: Sit->Stand: x1 EOB Stand to Sit Transfer Broadway Level: Stand->Sit: supervision Assistive Device: Stand->Sit: gait belt, armed chair Skilled Rationale: Verbal cues, Controlled descent for sitting, Cues for increased safety Skilled Intervention/Details: Stand->Sit: cues for hand placement and controlled descent Functional Mobility: Functional Mobility Broadway Level: Functional Mobility/Gait: stand-by assist Assistive Device: Functional Mobility/Gait: gait belt Functional Mobility Distance: Distance needed for limited community mobility Functional Mobility Deficits: Activity tolerance, Balance, Decreased step length, Generalized weakness Functional Mobility Skilled Rationale: Verbal cues, Facilitate postural control Skilled Intervention/Details - Functional Mobility/Gait: cues for upright posture Outcome Score(s): CURRENT [facility] Daily Activity Inpatient Short Form Putting on/Taking Off Lower Body Clothin - A Little Assistance Bathin - A Little Assistance Toiletin - A Little Assistance Putting on/Taking Off Upper Body Clothin - No Assistance Groomin - No Assistance Eatin - No Assistance CURRENT [facility] Activity Raw Score: 21 CURRENT [facility] Activity Functional Limitation/Modifier: 32.79% Currently [...] DAY SURGERY MAIN OR KIDNEY TRANSPLANT W/O PAIUTE OF UTAH NEPHRECTOMY N/A 04/12/2020 Laterality: N/A; Surgeon: LU [...] by: Mel Norman OT, OTR/L License #: [id number] pager # [phone] 05/20/2022 Upon discontinuation of Acute Care Occupational Therapy Services or patient discharge from the hospital this note represents the current Occupational Therapy Discharge Summary. documented in this encounter [facility] 05-20-2022 Hospital course Narrative Discharge Summary [...] during his recent hospital stay at [facility]. As you may know, George Styles, [...] Saldana MD Division of Hospital Medicine p: [phone] f: [phone] CONSULTS DURING ADMISSION: IP CONSULT TO SURGERY - UROLOGY IP CONSULT TO NEPHROLOGY - TRANSPLANT (MEDICINE) IP CONSULT TO INTERVENTIONAL RADIOLOGY IP CONSULT TO PHYSICAL THERAPY IP CONSULT TO OCCUPATIONAL THERAPY IP CONSULT TO PHARMACY BEDSIDE DISCHARGE MED DELIVERY IMAGING / PROCEDURES / RESULTS: Should you require further information or copies of results or reports please contact Medical Information Management @ [phone] LABS AT TIME OF DISCHARGE: Lab Results [...] Bruno [address] / [place] [address] MEDICATIONS: Discharge Orders CT ABDOMEN/PELVIS WITHOUT CONTRAST [...] CAPS Generic drug: docusate Follow-up: Zuly Bruno, BUCKET CHUCKER [address] [facility] [address] Schedule an appointment as soon as possible for a visit Follow-up appointment with your, primary care physician within 7-10 days, after discharge. [address] [facility] [address] Follow up The department of urology will call you with a follow up appointment. LU [place] [address] [facility] [address] Follow up Please make a follow up appointment with Dr. Latham's office. Upcoming Appointments (up to five)-Some appointments for Medical Center outpatient clinics or diagnostic testing locations are not displayed below Provider Department Dept Phone 06/04/2022 10:40 AM IR CLINIC [facility] Interventional Radiology Clinic [phone] 06/27/2022 1:30 PM [facility] Department of Radiology Arrive at: Arrive to First Floor Registration Desk [phone] 06/27/2022 2:40 PM Ryan Yepez [facility] [place] Arrive at: Arrive to 2nd Floor, Registration [address] 10/31/2022 1:00 PM Steve Latham [facility] Transplant [facility] [phone] 01/16/2023 9:40 AM TRANSPLANT HEPATOLOGY 3, [facility] Transplant [facility] [phone] Associated attestation - Daya Saldana MD - [...] Saldana MD Division of Hospital Medicine Pager [phone] documented in this encounter [facility] 05-20-2022 Hospital Discharge instructions Giulia Cavazos [...] be changed by Interventional Radiology. Please call [phone] to schedule this appointment and with any questions or concerns you may have regarding the nephrostomy tube. If you have questions or concerns, please call Interventional Radiology at SOMEONE FROM INTERVENTIONAL RADIOLOGY WILL CALL YOU FOR A FOLLOW UP IN THE IR CLINIC Giulia Cavazos RN Nurse Coordinator Interventional Radiology Interventional Radiology Outpatient scheduling documented in this encounter [facility] 05-19-2022 Note Formatting of this n [...] Ongoing Goal: Interdisciplinary Rounds/Family Conf Outcome: Ongoing [facility] 05-19-2022 Note Formatting of this n ote might be different from the original. Discussed with [facility] re: possible urine culture performed at their facility. However, based on urinalysis completed at that time, which was only notable for hematuria, culture was not performed and sample no longer feasible for culture. Liam Julian MD Internal Medicine/Pediatrics, PGY-3 [facility] 05-18-2022 Note Formatting of this n ote might be different from the original. 2003: [facility] message sent to Dr Justyn Wen, regarding patient passing a small kidney stone, about the size of pea. notified. Stone left in strainer in pt bathroom. 499: [facility] message sent to Dr Justyn Wen, regarding pt BP 174/77. [facility] 05-18-2022 Note Formatting of this n [...] outcomes by discharge/transition of care. Outcome: Ongoing [facility] 05-18-2022 Note Formatting of this n [...] hyponatremic, NS should instead be used. T [facility] Work Phone: 05-18-2022 Note Formatting of this n ote might be different from the original. IHIS chat sent to Dr Tray Quintana, regarding pt BP 190/86. Pt complaining of pain at site of neph tube. PRN pain medication given per order parameters. Pt denies any other symptoms at this time. notified and aware. [facility] 05-17-2022 Note Formatting of this n ote might be different from the original. At 0900, I rounded with Dr. Gamez and Dr. Saldana. At that time I checked Mr. Styles's vital signs. His pulse oximeter was low and he was tachypneic. Verbal order at bedside to put nasal cannula on starting at 2liters oxygen and to provide incentive spirometer. [facility] 05-17-2022 Note Formatting of this n ote might be different from the original. Interventional Radiology procedure completed with IR Attending Dr. Heart / Dr. Le of percutaneous right nephrostomy tube placement transplant kidney 10.2 Fr Griffin acosta Pt tolerated procedure with moderate sedation local numbing agent . Transported to inpatient after phase I recovery. Post procedure orders in place. [facility] 05-16-2022 Note Formatting of this n ote might be different from the original. At 1530, I text tung Gomez MD that patient has only had 25ml urine output in matias this afternoon. T [facility] 05-16-2022 Note Formatting of this n [...] with questions. Evan Byrd MD Urology, PGY-2 #[id number] [facility] Work Phone: 05-16-2022 Note Formatting of this n ote might be different from the original. I certify that this patient requires inpatient services at this time. I anticipate the expected length of stay will include at least two midnights. Inpatient services are due to the following medical concerns Obstructive kidney stone. Plans for post hospitalization care will be discharge to home. [facility] 05-16-2022 Consult note Associated Order (s): IP CONSULT TO NEPHROLOGY - TRANSPLANT (MEDICINE) I saw George Styles at the [facility] on 05/16/2022. Reason for Consultation: kidney [...] he was given flomax and sent home. Hume better but noticed more pain and decreased [...] best assessment and recommendations. Maxi Pringle MD [facility] Work Phone: 05-16-2022 Consult note Associated Order (s): IP CONSULT TO NEPHROLOGY - TRANSPLANT (MEDICINE) I saw George Styles at the [facility] on 05/16/2022. Reason for Consultation: kidney [...] he was given flomax and sent home. Hume better but noticed more pain and decreased [...] states he went to his local ED [facility] and he was put on Flomax and he did improve. Pt states last night he was unable to void with severe right sided abd pain. Pt states nausea and no vomiting or fevers. Pt states he went back to [facility] ED at 0100 and they placed a [...] orthotopic (N/A, 04/12/2020); and kidney transplant w/o yavapai-apache nephrectomy (N/A, 04/12/2020). 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 The yavapai-apache kidneys are progressively atrophic bilaterally compared to [...] of 06/14/2020 are no longer present. The yavapai-apache distal right ureter is decompressed beyond this [...] with surgical history for renal graft and yavapai-apache right urinary drainage, as a discrete ureteroneocystostomy is not identified, and the graft may be draining via a ureteroureterostomy. Urology consultation recommended. 3. The yavapai-apache kidneys are bilaterally atrophic, with right renal sinus calcifications consistent with nonobstructing right yavapai-apache renal calculi up to 6 mm. Normal [...] PGY-3, Department of Urologic Surgery Pager #: [phone] Associated attestation - Ryan Yepez MD - [...] warranted. Matias catheter flushed this morning and matais patent. Plan: --due to rising Cr would recommend consultation to IR for nephrostomy tube placement. Request antegrade ureteropyelogram to assess for obstruction and evaluate the course of the ureter --if antegrade ureteropyelogram still indeterminate may need repeat imaging in the future before surgical intervention --may continue flomax documented in this encounter [facility] 05-16-2022 Note Formatting [...] supported Trust Relationship/Rapport: care explained choices provided [facility] 05-16-2022 Note Formatting of this n ote might be different from the original. On admission to R10, a dual RN initial assessment of skin condition was performed by Kallie Lorenzana RN and Sheri Arguelles RN. Skin Assessment: WDL Jose Score: 20 LDA Added:N Kallie Lorenzana RN [facility] 05-15-2022 Emergency department Note Report given to Kallie RN at 10 [facility] 05-15-2022 Emergency department Note Report given [...] DAY SURGERY MAIN OR KIDNEY TRANSPLANT W/O PAIUTE OF UTAH NEPHRECTOMY N/A 04/12/2020 Laterality: N/A; Surgeon: LU [...] MD Resident 05/15/222030 Pt arrives from [facility] with kidney stones. Pt states he had right lower abd pain and right flank pain with blood in his urine since Thursday. Pt states he went to his local ED [facility] and he was put on Flomax and he did improve. Pt states last night he was unable to void with severe right sided abd pain. Pt states nausea and no vomiting or fevers. Pt states he went back to [facility] ED at 0100 and they placed a matias and CT scan completed and multiple kidney stones noted. [facility] as he had liver and kidney transplant in 03/2020. documented in this encounter [facility] 05-15-2022 History and physical note Internal Medicine Admission History & Physical Patient: George Styles, 1970, [id number] Physician: Evan Bennett MD, PGY1, Pager #[phone], 4 service Date of face to face [...] DAY SURGERY MAIN OR KIDNEY TRANSPLANT W/O PAIUTE OF UTAH NEPHRECTOMY N/A 04/12/2020 Laterality: N/A; Surgeon: LU [...] erythema: Skin: No jaundice or rash Neuro: relief docking master 3-7, 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 Strength grossly [...] dilation of the calyces may represent narrowing/partial [id number] ofthe ureter and mild hydronephrosis or sequela [...] MD Division of Hospital Medicine [id number] [facility] Work Phone: 05-15-2022 History and physical note Internal Medicine Admission History & Physical Patient: George Styles, 1970, [id number] Physician: Evan Bennett MD, PGY1, Pager #[phone], GM 4 service Date of face to face patient encounter: 05/15/22 . Chief Complaint: Kidney Stones History Of Present Illness: George Styels is a 52 y.o. male with a [...] DAY SURGERY MAIN OR KIDNEY TRANSPLANT W/O PAIUTE OF UTAH NEPHRECTOMY N/A 04/12/2020 Laterality: N/A; Surgeon: LU [...] erythema: Skin: No jaundice or rash Neuro: relief docking master 3-7, 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 Strength grossly [...] dilation of the calyces may represent narrowing/partial [id number] ofthe ureter and mild hydronephrosis or sequela [...] Medicine [id number] documented in this encounter [facility] 05-15-2022 Emergency department Note Bladder scan with Dr Villatoro at bedside, 14ml noted [facility] 05-15-2022 Consult note Associated Order (s): [...] states he went to his local ED [facility] and he was put on Flomax and he did improve. Pt states last night he was unable to void with severe right sided abd pain. Pt states nausea and no vomiting or fevers. Pt states he went back to [facility] ED at 0100 and they placed a [...] orthotopic (N/A, 04/12/2020); and kidney transplant w/o yavapai-apache nephrectomy (N/A, 04/12/2020). 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 The yavapai-apache kidneys are progressively atrophic bilaterally compared to [...] of 06/14/2020 are no longer present. The yavapai-apache distal right ureter is decompressed beyond this [...] with surgical history for renal graft and yavapai-apache right urinary drainage, as a discrete ureteroneocystostomy is not identified, and the graft may be draining via a ureteroureterostomy. Urology consultation recommended. 3. The yavapai-apache kidneys are bilaterally atrophic, with right renal sinus calcifications consistent with nonobstructing right yavapai-apache renal calculi up to 6 mm. Normal [...] PGY-3, Department of Urologic Surgery Pager #: [phone] Associated attestation - Ryan Yepez MD - [...] before surgical intervention --may continue flomax [facility] Work Phone: 05-15-2022 Emergency department Note Advised Dr Schneider concerning no urine output via matias catheter. [facility] 05-15-2022 Physician Emergency department Note ED [...] plan of care. Gian Villatoro MD 05/15/222003 [facility] Work Phone: 05-15-[address] Schneider made aware of only 30 ml urine via matias since arrival to room. [facility] 05-15-2022 Physician Emergency department Note dEPARTMENT [...] DAY SURGERY MAIN OR KIDNEY TRANSPLANT W/O PAIUTE OF UTAH NEPHRECTOMY N/A 04/12/2020 Laterality: N/A; Surgeon: LU [...] incorrections. Matt Schneider MD Resident 05/15/222030 [facility] Work Phone: 05-15-2022 Emergency department Note Pt arrives from [facility] with kidney stones. Pt states he had right lower abd pain and right flank pain with blood in his urine since Thursday. Pt states he went to his local ED [facility] and he was put on Flomax and he did improve. Pt states last night he was unable to void with severe right sided abd pain. Pt states nausea and no vomiting or fevers. Pt states he went back to [facility] at 0100 and they placed a matias and CT scan completed and multiple kidney stones noted. [facility] and kidney transplant [facility] 03/2020. [facility] 03-14-2022 History of Present illness Narrative [facility]: Call Information: Date and Time of Contact: 03/14/2022 5:01 PM Method of Contact: By Phone Contact Type: Prescriptions Contactor: [facility] Contactee: Patient Shipping/Pickup: Medicare B Refill?: No Medication Name: Mycophenolate sodium 180 mg and tacrolimus 0.5 mg Delivery Method: Air Delivery Location: Home Signature Required: No Mailing/Pickup Date: 03/17/2022 Shipping Address: [address] [place] [address] Contact Info: Specialty ([place]) [phone] [facility] [phone] [facility] [phone] David [phone] Bedside Delivery ([facility]) [phone] documented in this encounter [facility] 06-14-2021 History of Present illness Narrative [...] Goal Progress: Satisfactory Contact Info: Specialty ([place]) [phone] Jakob [phone] [facility] [phone] David [phone] Bedside Delivery ([facility]) [phone] [facility]: Call Information: Date [...] Home Signature Required: Yes Shipping Address: [address] [place] [address] Contact Info: Specialty ([place]) [phone] Jakob [phone] [facility] [phone] David [phone] Bedside Delivery ([facility]) [phone] documented in this encounter [facility] Evaluation note Diagnosis FAYE (acute kidney injury)- Primary Acute kidney failure, unspecified Hydronephrosis due to obstruction of ureteral orifice Hydronephrosis due to obstruction of ureteral orifice FAYE (acute kidney injury) Acute kidney failure, unspecified [facility] Diagnosis Follow-up exam- Primary Unspecified follow-up examination [facility] Diagnosis Immunosuppressed status- Primary Unspecified disorder of immune mechanism Kidney replaced by transplant Liver replaced by transplant Abnormal blood chemistry Other abnormal blood chemistry High risk medication use Encounter for long-term (current) use of other medications Aftercare following organ transplant Liver [facility] recipient [facility] Diagnosis Attention to nephrostomy- Primary [facility] Diagnosis Other hydronephrosis- Primary [facility] Diagnosis FAYE (acute kidney injury) Acute kidney failure, unspecified [facility] Diagnosis Other hydronephrosis- Primary -donor kidney transplant recipient Kidney replaced by transplant [facility] Diagnosis Other hydronephrosis [facility] Diagnosis 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) Encounter for screening for malignant neoplasm of prostate Special screening for malignant neoplasm of prostate [facility] Diagnosis Abnormal blood chemistry- Primary Other abnormal blood chemistry Liver transplant recipient Kidney replaced by transplant Immunosuppressed status Unspecified disorder of immune mechanism Aftercare following organ transplant [facility] Diagnosis Kidney replaced by transplant- Primary [facility] Diagnosis Immunosuppressed status- Primary Unspecified disorder of immune mechanism Kidney replaced by transplant Aftercare following organ transplant High risk medication use Encounter for long-term (current) use of other medications Other general symptoms and signs Abnormal blood chemistry Other abnormal blood chemistry Hypertension secondary to other renal disorders [facility] Diagnosis Histoplasmosis- Primary Histoplasmosis, unspecified [...] Fever, unspecified [facility] Diagnosis Bilateral lower extremity edema- Primary 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) Atherosclerosis 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) Atherosclerosis of aorta Obesity (BMI 30-39.9) DARLENE (obstructive sleep apnea) Obstructive sleep apnea (adult) (pediatric) Tremor Abnormal involuntary movements Immunocompromised (CMS/HCC) Unspecified immunity deficiency Primary hypertension (CMS/HCC) Unspecified essential hypertension Shortness of breath documented in this encounter [facility]* Diagnosis Pleural effusion on [...] pre-operative examination [facility] Diagnosis Heart failure, diastolic, acute- Primary Acute diastolic heart failure [facility] Diagnosis Liver lesion- Primary Other specified disorders of liver Liver transplant recipient High risk medication use Encounter for long-term (current) use of other medications Therapeutic drug monitoring Encounter for therapeutic drug monitoring Immunocompromised Unspecified immunity deficiency [facility] Diagnosis Kidney replaced by transplant- Primary [facility] Consultation (Routine) - New Request Specialty Diagnoses / Procedures Referred By Deni edwards Referred To Contact Interventional Radiology Diagnoses Hydronephrosis due to obstruction of ureteral orifice Daya Saldana MD [address] [place] [address] Referral ID Status Reason Start Date Expiration Date V isits Requested Visits Authorized [id number] New Request 05/18/2022 06/12/2023 1 1 * Radiology (Emergency) - New Request Specialty Diagnoses / Procedures Referred By Socorroac t Referred To Contact Procedures US RENAL TRANSPLANT SCAN Daya Saldana MD [address] [place] [address] Referral ID Status Reason Start Date Expiration Date V isits Requested Visits Authorized [id number] New Request 05/16/2022 06/10/2023 1 1 * Consultation (Routine) - New Request Specialty Diagnoses / Procedures Referred By Deni t Referred To Contact Urology Diagnoses FAYE (acute kidney injury) Ryan Yepez MD [address] [place] [address] [address] [place] [address] Referral ID Status Reason Start Date Expiration Date V isits Requested Visits Authorized [id number] New Request 05/16/2022 06/10/2023 1 1 * MRI/CAT Scan (Routine) - New Request Specialty Diagnoses / Procedures Referred By Deni edwards Referred To Contact Diagnoses FAYE (acute kidney injury) Procedures CT ABDOMEN/PELVIS WITHOUT CONTRAST CHG CT SCAN,ABDOMENT AND PELVIS,W/O CONTRAST Ryan Yepez MD [address] [place] [address] [address] [place] [address] Referral ID Status Reason Start Date Expiration Date V isits Requested Visits Authorized [id number] New Request 05/16/2022 06/10/2023 1 1 * (Routine) - Pending Review Specialty Diagnoses / Procedures Referred By Deni t Referred To Contact Procedures PLATELET MONITORING PER PROTOCOL Daya Saldana MD [address] [place] [address] Referral ID Status Reason Start Date Expiration Date V isits Requested Visits Authorized [id number] Pending Review 05/15/2022 06/09/2023 1 1 * (Routine) - Pending Review Specialty Diagnoses / Procedures Referred By Contac t Referred To Contact Procedures DVT/VTE RISK ASSESSMENT Daya Saldana MD [address] [place] [address] Referral ID Status Reason Start Date Expiration Date V isits Requested Visits Authorized [id number] Pending Review 05/15/2022 06/09/2023 1 1 * (Routine) Specialty Diagnoses / Procedures Referred By Contac t Referred To Contact Evan Bennett MD [address] [place] [address] Referral ID Status Reason Start Date Expiration Date Visits Re quested Visits Authorized * (Routine) Specialty Diagnoses / Procedures Referred By Contac t Referred To Contact Evan Bennett MD [address] [place] [address] Referral ID Status Reason Start Date Expiration Date Visits Re quested Visits Authorized [facility] for referral (narrative)* Consultation (Routine) - New Request Specialty Diagnoses / Procedures Referred By Contac t Referred To Contact Sleep Medicine Diagnoses Hypoxia Kevin Sage MD [address] [place] [address] Referral ID Status Reason Start Date Expiration Date V isits Requested Visits Authorized [id number] New Request 09/10/2023 10/04/2024 1 1 * MRI/CAT Scan (Routine) - New Request Specialty Diagnoses / Procedures Referred By Contac t Referred To Contact Diagnoses Histoplasmosis Procedures CT CHEST WITHOUT CONTRAST CHG DIAGNOSTIC COMPUTED TOMOGRAPHY THORAX W/O ROBERTT Kevin Sage MD [address] [place] [address] Referral ID Status Reason Start Date Expiration Date V isits Requested Visits Authorized [id number] New Request 09/10/2023 10/04/2024 1 1 * Radiology (Routine) - New Request Specialty Diagnoses / Procedures Referred By Contac t Referred To Contact Procedures US RENAL TRANSPLANT SCAN Steve Latham MBBS [address] [place] [address] Referral ID Status Reason Start Date Expiration Date V isits Requested Visits Authorized [id number] New Request 08/29/2023 09/22/2024 1 1 * (Routine) - New Request Specialty Diagnoses / Procedures Referred By Contac t Referred To Contact Procedures PLATELET MONITORING PER PROTOCOL Steve Latham MBBS [address] [place] [address] Referral ID Status Reason Start Date Expiration Date V isits Requested Visits Authorized [id number] New Request 08/28/2023 09/21/2024 1 1 * (Routine) - New Request Specialty Diagnoses / Procedures Referred By Contac t Referred To Contact Procedures DVT/VTE RISK ASSESSMENT Steve Latham MBBS [address] [place] [address] Referral ID Status Reason Start Date Expiration Date V isits Requested Visits Authorized [id number] New Request 08/28/2023 09/21/2024 1 1 [facility] Instructions * Patient Instructions - Christin Elizabeth APRN-CNP - 10/19/2018 9:21 AM EST You should take an extra dose of the lactulose as needed so that you are having 3-4 bowel movementsdaily. You should start the chemical dependency counseling as soon as possible. If you have questions, call the transplant social and human services assistant Fidelina Pierson. in this encounter* Patient Instructions - Sophie Cary RN - 10/12/2018 11:09 AM EST You have been seen in the pre-transplant evaluation clinic by Dr. Restrepo and Sophie Cary. Sophie Cary is your pre-dispute coordinator she can be reached at [phone] at any time for questions during the pre-transplant process. Your evaluation is complete pendin. Abdominal ultrasound. 2. 6 minute walk test. 3. Cardiology evaluation. Additionally, your podiatrist assistant will recommend testing to screen for coronary artery disease. This will be scheduled for you after your cardiology visit. 4. Your coordinator will be requesting record from your last dental visit, colonoscopy and EGD. 5. Please work to complete social work recommendations. Your social and human services assistant will be contacting you to follow up on your progress. 6. You have also been referred for a kidney transplant. An appointment will be scheduled for you sari evaluated in the kidney transplant clinic after you have satisfied requirements dictated by [employer] company. Once your testing is complete, we [...] ___ Other Name MRN * Christin Elizabeth, SHEET ROCK APPLIER-BUCKET CHUCKER - 10/19/2018 9:00 AM EST Formatting of this note may be different from the original. History of Present Illness: Chief Complaint Patient presents with Follow-up Cirrhosis George Styles is a 48 y.o. male who presents to the [facility] today regarding his diagnosis/chief complaint(s) of Cirrhosis secondary to ETOH, with ESRD follows with Dr. Orr. Currently undergoing evaluation for liver/kidney transplant. Has been seen in transplant clinic for eval. Still undergoing pre testing. Diagnosed in April 2018. Last drink was immediately prior to hospital admission in [place] for ACLF. Hospital course notable for ARF [...] kidney transplant evaluation. Pt was AOx3. Transplant Perishable Freight Inspector role/function was explained and reviewed. The patient was informed that the results of this assessment will be shared with the referring provider and the transplant team. The patient verbalized understanding of this information. The [facility] psychosocial assessment consent form has been explained to patient and has been signed. Pt is completing this evaluation with brother (David) in the Outpatient setting. SWK educated pt on the benefits of completing/filing advanced directives and resources were offered. Pt identifies with PRESYBETERIAN jehovah's witness. Pt confirms being a [place] Citizen. Pt.'s primary language is Sudanese. Pt confirms the ability to read,write, and understand Sudanese. Pt denies potential donors. Donor cards and [...] has valid license, does not regularly drive (BUCKET CHUCKER recommends that he not to drive). He [...] related disease etoh cirrohosis April dx in [facility] for thirty days. Pt reports learning [...] as well as referred him to pre dispute coordinator. Pt and support demonstrated moderate understanding [...] Patient's brother David is a self employed brickmason contractor. Additional support includes his other brother Tyshawn and his Mary live fifteen minutes away. Of note Mary is a call center manager for a [employer] is available to assist supervisor wall mirror department. He confirms being comfortable asking for [...] in 2010, he was employed by the [employer]. He has access to SSDI payment (SSDI starts in November) in regards to financial means pre/ post-transplant. Pt confirms (meeting bills currently, ) being able to meet daily needs. Patient's brother asking for additional information on community resources, food stamps and Heap. Refer him to pt.'s dialysis center and the [facility]. Hereports access to Medicaid. Pt. [...] court ordered treatment after a DUI charge [facility] in [place], court ordered treatment in 2001 and in [...] new visit Date of service: 10/12/2018 -Referring satellite tv installer for today's consult: -Primary Care Provider: Zuly [...] EST Timed up and go 9.9 seconds Electric Arc Welder Left 52.8 pounds Right 44.9 pounds Waist circ 38.5 inches * Sophie Cary, SAMI - 10/12/2018 10:00 AM EST Formatting of this note may be different from the original. Patient George Styles ([id number]), accompanied by his brother, was seen on [...] any further questions. Sophie GUERINN, RN Liver Security Control Center Operator Etiology: ETOH HCC: No ETOH: Yes [...] Orr MD [address] [address] Status Reason Specialty Diagnoses / Procedures Referred By Contact Referred To Contact New Request Diagnoses Cirrhosis of liver with ascites, unspecified hepatic cirrhosis type Procedures US ABDOMEN RUQ/LIVER/GB Yovani Orr MD [address] [address] Specialty Diagnoses / Procedures Referred By Contac t Referred To Contact Diagnoses FAYE (acute kidney injury) Procedures CT ABDOMEN/PELVIS WITHOUT CONTRAST CHG CT SCAN,ABDOMENT AND PELVIS,W/O CONTRAST Central Scheduling [facility] [place] [address] Referral ID Status Reason Start Date Expiration Date V isits Requested Visits Authorized [id number] Pending Review 05/16/2022 06/10/2023 1 1 Specialty Diagnoses / Procedures Referred By Contac t Referred To Contact Diagnoses Other hydronephrosis Procedures [facility] Ryan Yepez MD [address] [facility] [address] [place] [address] Referral ID Status Reason Start Date Expiration Date V isits Requested Visits Authorized [id number] New Request 07/07/2022 08/01/2023 1 1 Specialty Diagnoses / Procedures Referred By Contac t Referred To Contact Procedures DIRECT ADMIT REQUEST Steve Latham MBBS [address] [place] [address] Referral ID Status Reason Start Date Expiration Date V isits Requested Visits Authorized [id number] New Request 08/28/2023 09/21/2024 1 1 Specialty Diagnoses / Procedures Referred By Contac t Referred To Contact Radiology Diagnoses DARLENE (obstructive sleep apnea) Primary hypertension (CMS/HCC) Bilateral lower extremity edema Shortness of breath Procedures Echocardiogram 2D complete Zuly Bruno NP [address] [place] [address] Referral ID Status Reason Start Date Expiration Date Visits Requested Visits Authorized [id number] Incomplete Perform Procedure 01/06/2024 07/04/2024 1 1 Specialty Diagnoses / Procedures Referred By Contac t Referred To Contact Procedures [facility] Kehinde Gutierrez MD [address] [place] [address] Referral ID Status Reason Start Date Expiration Date V isits Requested Visits Authorized [id number] New Request 01/22/2024 02/15/2025 1 1 Specialty Diagnoses / Procedures Referred By Contac t Referred To Contact Cardiovascular Medicine Diagnoses Heart failure, diastolic, acute Kelvin Pacheco MD, MBBS [address] 1st [place] [address] Referral ID Status Reason Start Date Expiration Date V isits Requested Visits Authorized [id number] New Request 01/20/2024 02/13/2025 1 1 Specialty Diagnoses / Procedures Referred By Contac t Referred To Contact Procedures US ABDOMEN LIVER DOPPLER US ABDOMEN LIVER TRANSPLANT DOPPLER Timothy Joseph MD [address] [facility] [address] [place] [address] Referral ID Status Reason Start Date Expiration Date V isits Requested Visits Authorized [id number] New Request 01/16/2024 02/09/2025 1 1 Specialty Diagnoses / Procedures Referred By Contac t Referred To Contact Procedures DVT/VTE RISK ASSESSMENT Kelvin Pacheco MD, MBBS [address] [place], [place] [id number] Referral ID Status Reason Start Date Expiration Date V isits Requested Visits Authorized [id number] New Request 01/16/2024 02/09/2025 1 1 Specialty Diagnoses / Procedures Referred By Contac t Referred To Contact Procedures PLATELET MONITORING PER PROTOCOL Kelvin Pacheco MD, MBBS [address] [place] [address] Referral ID Status Reason Start Date Expiration Date V isits Requested Visits Authorized [id number] New Request 01/16/2024 02/09/2025 1 1 Referral ID Status Reason Start Date Expiration Date V isits Requested Visits Authorized [id number] New Request 01/16/2024 02/09/2025 1 1 Specialty Diagnoses / Procedures Referred By Contac t Referred To Contact Procedures ECG Kelvin Pacheco MD, MBBS [address] [place] [address] Referral ID Status Reason Start Date Expiration Date V isits Requested Visits Authorized [id number] New Request 01/16/2024 02/09/2025 1 1 Specialty Diagnoses / Procedures Referred By Contac t Referred To Contact Diagnoses Liver lesion Procedures MRI ABDOMEN WITH AND WITHOUT CONTRAST CHG MRI ABDOMEN W/O & W/CONTRAST MATERIAL Manolo Maxy A, DO [address] [place] [address] Referral ID Status Reason Start Date Expiration Date V isits Requested Visits Authorized [id number] New Request 06/17/2024 07/12/2025 1 1 Advance Directives Documents on File Type Date Recorded Patient Fire Behavior Analyst Expl anation Advance Directives and Living Will Power of Sports Book Server Latest Code Status on File Code Status [...] Orr MD [address] [address] Status Reason Specialty Diagnoses / Procedures Referre d By Contact Referred To Contact Denied Diagnoses Alcoholic cirrhosis, unspecified whether ascites present Pre-transplant evaluation for liver transplant Procedures MRI ABDOMEN WITH CONTRAST NH MRI, ABDOMEN W/CONTRAST Yovani Orr MD [address] [address] Reason Comments Liver Recipient Evaluation Status Reason Specialty Diagnoses / Procedures Referred By Contact Referred To Contact New Request Transplant / Transplant Surgery Procedures PRE NEW PATIENT Yovani Orr MD [address] [address] Alfredito Restrepo MD [address] [place] [address] Reason Comments Reschedule Reason Comments Outside Medical Records Request Reason Comments Social Work Follow-up Reason Comments Kidney Stone Specialty Diagnoses / Procedures Referred By Contac t Referred To Contact Diagnoses Obstructing kidney stone, s/p kidney transplant 2019 Daya Sladana MD [address] [place] [address] [facility] [address] [place] [address] Referral ID Status Reason Start Date Expiration Date Visits Re quested Visits Authorized [id number] 1 1 Reason Comments Follow-up Reason Comments Kidney Recipient Follow-up Liver Recipient Follow-up Reason Comments Consult Reason Comments New Patient Hospital follow up Specialty Diagnoses / Procedures Referred By Contac t Referred To Contact Urology Diagnoses hosp fu with [address] prior Procedures NEW TO DOC/RET PATIENT KristopherZuly steve, BUCKET CHUCKER [address] [place] [address] Ryan [facility]pez MD [facility] [address] [place] [address] Referral ID Status Reason Start Date Expiration Date Visits Re quested Visits Authorized [id number] Closed 06/27/2022 07/22/2023 1 1 Specialty Diagnoses / Procedures Referred By Contac t Referred To Contact Diagnoses FAYE (acute kidney injury) Procedures CT ABDOMEN/PELVIS WITHOUT CONTRAST CHG CT SCAN,ABDOMENT AND PELVIS,W/O CONTRAST Central Scheduling [address] [place] [phone] Referral ID Status Reason Start Date Expiration Date V isits Requested Visits Authorized [id number] Pending Review 05/16/2022 06/10/2023 1 1 Reason Comments Follow-up Specialty Diagnoses / Procedures Referred By Contac t Referred To Contact Urology Diagnoses 1 week fu post NT clamp Procedures RETURN PATIENT KristopherZuly steveROB [address] [place] [address] Ryan Yepez MD [address] [facility] [address] [place] [address] Referral ID Status Reason Start Date Expiration Date Visits Requested Visits Authorized [id number] Authorized - 07/07/2022 08/01/2023 2 2 Specialty Diagnoses / Procedures Referred By Contac t Referred To Contact Diagnoses Other hydronephrosis Procedures [facility] Ryan Yepez MD [address] [facility] [address] [place] [address] Referral ID Status Reason Start Date Expiration Date V isits Requested Visits Authorized [id number] New Request 07/07/2022 08/01/2023 1 1 Specialty Diagnoses / Procedures Referred By Contac t Referred To Contact Urology Diagnoses 1 week fu post NT clamp Procedures RETURN PATIENT Kristopherlydialatishasaeed Zuly, BUCKET CHUCKER [address] [place] [address] Ryan Yepez MD [address] [facility] [address] [place] [address] Referral ID Status Reason Start Date Expiration Date Visits Re quested Visits Authorized [id number] Closed 07/07/2022 08/01/2023 2 2 Reason Comments Liver Recipient Follow-up Reason Comments Kidney Recipient Follow-up Reason Comments Kidney Recipient Follow-up Specialty Diagnoses / Procedures Referred By Contac t Referred To Contact Diagnoses Kidney replaced by transplant Steve Latham MBBS [address] [place] [address] [facility] [address] [place] [address] Referral ID Status Reason Start Date Expiration Date Visits Re quested Visits Authorized [id number] 1 1 Specialty Diagnoses / Procedures Referred By Contac t Referred To Contact Diagnoses Pleural effusion on right PNEUMONIA- HX LIVER AND KIDNEY TRANSPLANT Kevin Sage MD [address] [place] [address] [facility] [address] [place] [address] Referral ID Status Reason Start Date Expiration Date Visits Re quested Visits Authorized [id number] 1 1 Reason Comments New Patient Specialty Diagnoses / Procedures Referred By Deni edwards Referred To Contact Cardiovascular Medicine Diagnoses Heart failure, diastolic, acute Kelvin Pacheco MD, MBBS [address] 1[address] [place] [address] Referral ID Status Reason Start Date Expiration Date Visits Requested Visits Authorized [id number] Authorized - 01/20/2024 02/13/2025 5 5 Reason Comments Liver Recipient Follow-up (unrecognized sect ion and content) No Status Records FoundNo Status Records FoundNo Status Records FoundNo Status Records FoundNo Status Records FoundNo Status Records Found INFORMATION SOURCE (unrecogn ized section and content) DATE CREATED AUTHOR 01/07/2020 [facility] DATE CREATED AUTHOR AUTHOR'S ORGANIZ ATION 01/27/2021 [facility] DATE CREATED AUTHOR AUTHOR'S ORGANIZ ATION 05/11/2023 [facility] DATE CREATED AUTHOR AUTHOR'S ORGANIZ ATION 04/19/2024 [facility] DATE CREATED AUTHOR AUTHOR'S ORGANIZ ATION 06/03/2024 [facility] DATE CREATED AUTHOR AUTHOR'S ORGANIZ ATION 06/20/2024 [facility] Care Teams (unrecognized sec tion and content) [employer] Relationship Specialty Start Date End Date Zuly Bruno CNP PCP - General 07/19/18 Comfort Rivera [facility] [address] [place] [address] Pharmacist Pharmacist 05/16/20 Angel Carpio, [facility],PharmD Pharmacist Pharmacist 05/16/20 Te Leigh [facility],PharmD Pharmacist Pharmacist 01/09/21 [employer] Relationship Specialty Start Date End Date Zuly Bruno CNP PCP - General 07/19/18 Comfort Rivera, [facility] [address] [facility] [address] [place] [address] Pharmacist Pharmacist 05/16/20 Angel Carpio, [facility],PharmD Pharmacist Pharmacist 05/16/20 Te Leigh, [facility],PharmD Pharmacist Pharmacist 01/09/21 [employer] Relationship Specialty Start Date End Date Zuly Bruno CNP PCP - General 07/19/18 [employer] Relationship Specialty Start Date End Date Zuly Bruno CNP PCP - General 07/19/18 [employer] Relationship Specialty Start Date End Date Zuly Bruno CNP PCP - General 07/19/18 [employer] Relationship Specialty Start Date End Date Zuly Bruno CNP PCP - General 07/19/18 [employer] Relationship Specialty Start Date End Date Zuly Bruno CNP PCP - General 07/19/18 [employer] Relationship Specialty Start Date End Date Zuly Bruno CNP PCP - General 07/19/18 [employer] Relationship Specialty Start Date End Date Zuly Bruno CNP PCP - General 07/19/18 [employer] Relationship Specialty Start Date End Date Zuly Bruno CNP PCP - General 07/19/18 [employer] Relationship Specialty Start Date End Date Zuly Bruno CNP PCP - General 07/19/18 [employer] Relationship Specialty Start Date End Date Zuly Bruno CNP PCP - General 07/19/18 [employer] Relationship Specialty Start Date End Date Zuly Bruno CNP PCP - General 07/19/18 [employer] Relationship Specialty Start Date End Date Zuly Bruno CNP PCP - General 07/19/18 [employer] Relationship Specialty Start Date End Date Zuly Bruno CNP PCP - General 07/19/18 [employer] Relationship Specialty Start Date End Date Zuly Bruno CNP PCP - General 07/19/18 [employer] Relationship Specialty Start Date End Date Zuly Bruno CNP PCP - General 07/19/18 Evan White DO [facility] [place] [address] Infectious Disease Infectious Disease 09/09/23 [employer] Relationship Specialty Start Date End Date Zuly Bruno CNP PCP - General 07/19/18 Evan White DO [facility] [place] [address] Infectious Disease Infectious Disease 09/09/23 [employer] Relationship Specialty Start Date End Date Zuly Bruno CNP PCP - General 07/19/18 Evan White DO [facility] [place] [address] Infectious Disease Infectious Disease 09/09/23 [employer] Relationship Specialty Start Date End Date Momo Verdugo MD PCP - General Family Medicine 05/21/23 [employer] Relationship Specialty Start Date End Date Momo Verdugo MD PCP - General Family Medicine 05/21/23 [employer] Relationship Specialty Start Date End Date Momo Verdugo MD PCP - General Family Medicine 05/21/23 [employer] Relationship Specialty Start Date End Date Zuly Brnuo CNP PCP - General 07/19/18 Evan White DO [address] [place] [address] Infectious Disease Infectious Disease 09/09/23 [employer] Relationship Specialty Start Date End Date Zuly Bruno CNP PCP - General 07/19/18 Evan White DO [address] [place] [address] Infectious Disease Infectious Disease 09/09/23 [employer] Relationship Specialty Start Date End Date Zuly Bruno CNP PCP - General 07/19/18 Evan White DO [address] [place] [address] Infectious Disease Infectious Disease 09/09/23 [employer] Relationship Specialty Start Date End Date Zuly Bruno CNP PCP - General 07/19/18 Evan White DO [address] [place] [address] Infectious Disease Infectious Disease 09/09/23 [employer] Relationship Specialty Start Date End Date Zuly Bruno CNP PCP - General 07/19/18 Evan White DO [address] [place], [place] [id number] Infectious Disease Infectious Disease 09/09/23 [employer] Relationship Specialty Start Date End Date Zuly Bruno CNP PCP - General 07/19/18 [employer] Relationship Specialty Start Date End Date Zuly Bruno CNP PCP - General 07/19/18 [employer] Relationship Specialty Start Date End Date Zuly Bruno CNP PCP - General 07/19/18 [employer] Relationship Specialty Start Date End Date Zuly Bruno CNP PCP - General 07/19/18 [employer] Relationship Specialty Start Date End Date Zuly Bruno CNP PCP - General 07/19/18 [employer] Relationship Specialty Start Date End Date Zuly [...] MD) 0900 (Automatically Held - Provider: Arelis Mear MD) 0900 (Automatically Held - Provider: Arelis [...] 0842 (Given - Provider: Terra Heart RN)1053 ([facility] Hold - Provider: Automatic [...] 0841 (Given - Provider: Terra Heart RN)105 ([facility] Hold - Provider: Automatic Transfer - Reason: Transfer to a Procedural area)141 ([facility] Unhold - Provider: Automatic Transfer)2008 (Given - Provider: Tati Ahmadi RN) 919 (Given - Provider: Terra Heart RN) Sulfamethoxazole-trime thoprim (BACTRIM DS) 800-160 MG per tablet 1 tablet 1 tablet, Oral, THREE TIMES WEEKLY (Once per day on Thursday), First dose on Thu01/18/24 at 0900, Until Discontinued 08 (Given - Provider: Terra Heart RN)1052 ([facility] Hold - Provider: Automatic Transfer - Reason: Transfer to a Procedural area)1413 ([facility] Unhold - Provider: Automatic Transfer) tacrolimus (PROGRAF) susp 0.2 mg 0.2 mg, Oral, CUSTOM FREQUENCY (Once per day on Thursday), First dose on Thu01/16/24 at 0900, Until Discontinued, Caution check route of administration. For sublingual administration, place liquid under tongue and allow absorption. 841 (Given - Provider: Erica Gudino RN) 1052 ([facility] Hold - Provider: Automatic Transfer - Reason: Transfer to a Procedural area)1413 ([facility] Unhold - Provider: Automatic Transfer) 922 (Given - Provider: Terra Heart RN) Tamsulosin HCl (FLOMAX) capsule 0.4 mg 0.4 mg, Oral, DAILY, First dose on Thu01/16/24 at 0900, Until Discontinued, Slow release product. Do not chew or crush 841 (Given - Provider: Erica Gudino RN) 08 (Given - Provider: Terra Heart RN)1052 ([facility] Hold - Provider: Automatic Transfer - Reason: Transfer to a Procedural area)141 ([facility] Unhold - Provider: Automatic [...] 0841 (Given - Provider: Terra Heart RN)1053 ([facility] Hold - Provider: Automatic Transfer - Reason: Transfer to a Procedural area)1414 ([facility] Unhold - Provider: Automatic [...] from all sources in 24 hours. 1053 ([facility] Hold - Provider: Automatic Transfer - Reason: Transfer to a Procedural area)1414 ([facility] Unhold - Provider: Automatic [...] 200-200 mg and Simethicone 20 mg) 1053 ([facility] Hold - Provider: Automatic Transfer - Reason: Transfer to a Procedural area)1414 ([facility] Unhold - Provider: Automatic Transfer) guaiFENesin (ROBITUSSIN) oral solution 400 mg 400 mg, Oral, EVERY 6 HOURS NEEDED, Starting on 01/16/24 at 0202, Until 01/23/24 at 1752, Cough, Congestion 1053 ([facility] Hold - Provider: Automatic Transfer - Reason: Transfer to a Procedural area)1414 ([facility] Unhold - Provider: Automatic [...] 0016, Until 01/23/24 at 1752, Insomnia 1053 ([facility] Hold - Provider: Automatic Transfer - Reason: Transfer to a Procedural area)1414 ([facility] Unhold - Provider: Automatic Transfer)2355 (Given - Provider: Tati Ahmadi RN) Ondansetron (ZOFRAN) tablet 4 mg(Linked Group 1) 4 mg, Oral, EVERY 6 HOURS NEEDED, Starting on 01/16/24 at 0202, Until 01/23/24 at 1752, Nausea / Vomiting, 1st line for Nausea/Vomiting 1053 ([facility] Hold - Provider: Automatic Transfer - Reason: Transfer to a Procedural area)1414 ([facility] Unhold - Provider: Automatic Transfer)1809 (See Alternative - Provider: Terra Heart RN) 0430 (See Alternative - Provider: Tati Ahmadi RN)1415 (Given - Provider: Terra Heart RN) Ondansetron 4mg/2ml (ZOFRAN) injection 4 mg(Linked Group 1) 4 mg, Intravenous, EVERY 6 HOURS NEEDED, Starting on 01/16/24 at 0202, Until 01/23/24 at 1752, Nausea / Vomiting, 1st line for Nausea/Vomiting 1053 ([facility] Hold - Provider: Automatic Transfer - Reason: Transfer to a Procedural area)1414 ([facility] Unhold - Provider: Automatic [...] - Reason: Transfer to a Procedural area)1414 ([facility] Unhold - Provider: Automatic [...] - Reason: Transfer to a Procedural area)1414 ([facility] Unhold - Provider: Automatic [...] the intermittent or piggy back medication. 1053 ([facility] Hold - Provider: Automatic [...] BE BASED ON THE PRIMARY CLINICAL RECORDS. [employer] [facility]. provides no warranty or guarantee of the accuracy or completeness of information in this document.
[2024-07-04 07:34] LABS: Basophils Percent Auto 0.4 % (0.2-2.0); Eosinophils Absolute Auto 0.2 10^3/uL (0.0-0.7); Eosinophils Percent Auto 3.5 % (0.9-7.0); Hematocrit 46.6 % (42.0-54.0); Hemoglobin 15.7 g/dL (14.0-18.0); Immature Granulocytes Abs Auto 0.01 10^3/uL (0.00-0.03); Immature Granulocytes Pct Auto 0.2 % (0.0-0.5); Lymphocytes Absolute Auto 1.6 10^3/uL (1.2-3.8); Lymphocytes Percent Auto 33.3 % (20.5-60.0); Mean Corpuscular HGB Conc 33.7 g/dL (29.9-35.2); Mean Corpuscular Volume 88.9 fL (80.0-94.0); Mean Platelet Volume 9.7 fL (9.5-13.5); Monocytes Absolute Auto 0.4 10^3/uL (0.3-0.8); Monocytes Percent Auto 8.9 % (1.7-12.0); Neutrophils Absolute Auto 2.6 10^3/uL (1.4-6.5); Neutrophils Percent Auto 53.7 % (43.0-75.0); Platelet Count 234 10^3/uL (150-450); Red Blood Count 5.24 10^6/uL (4.70-6.10); Red Cell Distribution Width 12.1 % (11.0-15.0); White Blood Count 4.8 10^3/uL (4.0-11.0)
[2024-07-04 07:53] LABS: Creatinine Urine Random 123.86 mg/dL (20.00-300.00); Protein Creatinine Ratio Urine 0.13; Total Protein Urine Random 15.8 mg/dL (<=11.9)
[2024-07-04 07:56] LABS: Alanine Aminotransferase 52 U/L (16-63); Albumin Level 3.9 g/dL (3.4-5.0); Alkaline Phosphatase 112 U/L (46-116); Anion Gap 12.5; Aspartate Amino Transferase 30 U/L (15-37); Bilirubin Direct 0.2 mg/dL (0.0-0.2); Calcium 9.4 mg/dL (8.5-10.1); Carbon Dioxide 27.5 mmol/L (21.0-32.0); Chloride 106 mmol/L (98-107); Estimated GFR (African America >60 (>=60); Estimated GFR (Non-African Ame >60 (>=60); Gamma Glutamyl Transpeptidase 23 U/L (15-85); Glucose 103 mg/dL (74-106); Magnesium 1.9 mg/dL (1.8-2.4); Sodium 142 mmol/L (136-145)
[2024-07-06 17:09] LABS: Tacrolimus (FK506), Blood 2.6 ng/mL (2.0-20.0)
== END 2024-07-04 06:35 | disposition home or self-care (01) ==
PROVIDERS: PCP Nurse Practitioner
DX: R79.9 Abnormal finding of blood chemistry, unspecified (principal); Z94.0 Kidney transplant status; Z94.4 Liver transplant status; Z48.298 Encounter for aftercare following other organ transplant
CPT/HCPCS: 36415; 80048; 80197; 82042; 82247; 82248; 82570; 82977; 83735; 84075; 84100; 84156; 84450; 84460; 85025

== ENCOUNTER 2024-07-11 06:35 | Outpatient (OUT) | payer MEDICARE, MEDICAID, SELFPAY ==
--- OUTSIDE RECORDS SUMMARY | 2024-07-11 06:42 | XMS_ITS | CCD ---
Author Organization [facility] Care Team Providers Care Human Resources Administrator Name Role Phone Kiana Zuly Unavailable Unavailable [...] Unavailable AICHHOLZ, ZULY Primary Care Unavailable Aichholz [facility] Primary Care Provider Miguel RPComfort Unavailable Shirin [facility],PharmD, Angel Unavailable Unavailab makayla Leigh [facility],PharmD, Te Unavailable Unavai lable [facility]icholz [facility] Primary Care Provider CHANDUC, DR BURCH Admitting Unavailable MISC, DR BURCH Consulting Unavailable AICHHOLZ, KRAFT DIGESTER OPERATOR ZULY Primary Care Unavailable MISC, DR BURCH Attending Unavailable MISC, DR BURCH Admitting Unavailable MISC, DR BURCH Consulting Unavailable AICHHOLZ, KRAFT DIGESTER OPERATOR ZULY Primary Care Unavailable MISC, DR BURCH Attending Unavailable ARCELIA PIZARRO Consulting Unavailable KE BURNHAM Attending Unavailable KE BURNHAM Admitting Unavailable BARBARA, DR MÓNICA Munoz Consulting Unavailable AICHHOLZ, KRAFT DIGESTER OPERATOR ZULY Primary Care Unavailable KE BURNHAM Consulting Unavailable MISC, DR BURCH Consulting Unavailable MISC, DR BURCH Attending Unavailable AICHHOLZ, KRAFT DIGESTER OPERATOR ZULY Primary Care Unavailable MISC, DR BURCH Admitting Unavailable MISC, DR BURCH Consulting Unavailable MISC, DR BURCH Attending Unavailable AICHHOLZ, KRAFT DIGESTER OPERATOR ZULY Primary Care Unavailable MISC, DR BURCH Admitting Unavailable MISC, DR BURCH Consulting Unavailable AICHHOLZ, KRAFT DIGESTER OPERATOR ZULY Primary Care Unavailable MISC, DOCTOR Admitting Unavailable MISC, DR DOCTOR Attending Unavailable MELINDA, DR GEORGE Munoz Consulting Unavailable MELINDA, DR GEORGE Munoz Attending Unavailable AICHHOLZ, KRAFT DIGESTER OPERATOR ZULY Primary Care Unavailable MELINDA, DR GEORGE Munoz Admitting Unavailable NAUN ., KE Consulting Unavailable MIRANDA, LYNDSAY Consulting Unavailable MELINDA, DR GEORGE Munoz Consulting Unavailable NAUN ., KE Attending Unavailable NAUN ., KE Admitting Unavailable AICHHOLZ, KRAFT DIGESTER OPERATOR ZULY Primary Care Unavailable NAUN ., KE Consulting Unavailable GIAN HERRING Consulting Unavailable AICHHOLZ, KRAFT DIGESTER OPERATOR ZULY Consulting Unavailable AICHHOLZ, KRAFT DIGESTER OPERATOR ZULY Attending Unavailable AICHHOLZ, KRAFT DIGESTER OPERATOR ZULY Admitting Unavailable AICHHOLZ, KRAFT DIGESTER OPERATOR ZULY Primary Care Unavailable MISC, DR DOCTOR Consulting Unavailable MISC, DOCTOR Admitting Unavailable MISC, DOCTOR Attending Unavailable AICHHOLZ, KRAFT DIGESTER OPERATOR ZULY Primary Care Unavailable MISC, DR DOCTOR Consulting Unavailable MISC, DR DOCTOR Attending Unavailable MISC, DOCTOR Admitting Unavailable AICHHOLZ, KRAFT DIGESTER OPERATOR ZULY Primary Care Unavailable MISC, DOCTOR Admitting Unavailable MISC, DOCTOR Consulting Unavailable MISC, DR DOCTOR Attending Unavailable AICHHOLZ, KRAFT DIGESTER OPERATOR ZULY Primary Care Unavailable MISC, DOCTOR Admitting Unavailable MISC, DR DOCTOR Consulting Unavailable AICHHOLZ, KRAFT DIGESTER OPERATOR ZULY Primary Care Unavailable MISC, DR DOCTOR Attending Unavailable MISC, DOCTOR Admitting Unavailable MISC, DOCTOR Consulting Unavailable AICHHOLZ, KRAFT DIGESTER OPERATOR ZULY Primary Care Unavailable MISC, DR DOCTOR Attending Unavailable AICHHOLZ, KRAFT DIGESTER OPERATOR ZULY Consulting Unavailable AICHHOLZ, KRAFT DIGESTER OPERATOR ZULY Attending Unavailable AICHHOLZ, KRAFT DIGESTER OPERATOR ZULY Admitting Unavailable AICHHOLZ, KRAFT DIGESTER OPERATOR ZULY Primary Care Unavailable DR MÓNICA JIMENEZ Consulting Unavailable Aichholz [facility], Zuly Primary Care Provider [phone] Evan White DO Unavailable [facility], Zuly Primary Care Provider [phone] Tran White DOs A Unavailable Momo Verdugo MD Primary Care Provider [phone] Aichholz KRAFT DIGESTER OPERATOR, Zuly Primary Care Provider [phone] AICHHOLZ, ZULY Attending Unavailable AICHHOLZ, ZULY Attending [...] Propensity to adverse reactions (disorder) 8 [facility] Repository (20 sources) Shellfish-Derive d Products Propensity to adverse reactions to drug 9 [facility] (1 source) Shellfish Drug allergy (disorder) [facility] Repository Medications Current Medications Medication Drug [...] 1 capsule by mouth once daily b vabevfu-D-ywuvu acid (NEPHROCAPS) 1 MG capsule Take 1 [...] ankle pain. 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 White - [phone] Transplant Neph - [phone] Each 09/10/2023 01/19/2024 Discontinued (Medication Reconciliation (suppress cancel msg)) Start: 09-10-2023 CUSTOM MEDICAT ION Labs to be obtained: 1- Tacrolimus level, trough - collect twice weekly until 09/24/23, then weekly until 10/08/23, them once every two weeks there after. 2- Itraconazole level - obtain once between 09/14-09/18. 3- Chem 6 - Obtain weekly while on itraconazole Fax results to: Dr. Cindy Moran [phone] Transplant [facility] - [phone] Each 0 09/10/2023 Active Diatrizoate (1 [...] (ROXICODONE) tablet 10 mg polyethylene glycol 3350 00080 mg powder for oral solution (20 sources) [...] rate of 5mg/min. Maximum of 40mg/day. sennosides, shelter 8.6 mg oral tablet (1 [...] (20 sources) Calcineurin Inhibitor Immunosuppressant Start: 06-22-2024 End: 07-01-2024 take 1 dose by mouth once Tacrolimus 0.2 MG Pack Mix 1 packet (0.2 mg) as directed and take by mouth every Thursday, Thursday and Thursday. 12 Each 06/22/2024 07/01/2024 Discontinued (Reorder) Start: 06-17-2024 End: 09-03-2024 Tacrolimus 0.2 MG [...] Start: 08-20-2022 take 1 capsule by mo [facility] every twelve hours Tacrolimus (PROGRAF) [...] Coronary arteriosclerosis; Translations: [Atherosclerotic heart disease of eagle coronary artery without angina pectoris] Onset: 3 [...] sources) Taking high risk medication; Translations: [Other alf (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] Episodic Other aftercare (1 [...] Episodic Other aftercare (2 sources) Other long goods drier (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; Translations: [OTH RESIDENTIAL 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 THERAPY] Onset: 07-06-2022 Episodic Other aftercare (1 source) care home (current) use of aspirin; Translations: [RESIDENTIAL CURRENT USE OF ASPIRIN] Onset: 06-20-2022 Episodic [...] 06-22-2018 06-22-2018 Episodic Pleurisy; pneumothorax; pulmonary collapse (19 sources) Pleural effusion; Translations: [Pleural effusion, not [...] transplant] Onset: 08-28-2023 Unclassified (1 source) Other alf (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; Translations: [Other alf (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] Onset: 08-28-2023 Unclassified (1 [...] Patient informed and he verbalized understanding. [facility] Office Visiton 05-13-2024 Follow-up visit [id number] George Styles 1970 M Date Provider [facility] Family History Problem Relation Age of Onset Coronary artery disease Mother Coronary artery disease Father Family Status - Relation Status Age at Mother Father Level of Service:31594 MS OFFICE/OUTPATIENT ESTABLISHED LOW MDM 20 MIN Reason for Visit and Comments: Follow-up [289724] - Yearly follow up Normal [facility] B-TYPE NATRIURETIC PEPTIDE ( BRAIN)on 02-26-2024 Interpretation and review of laboratory results Normal [facility] Natriuretic peptide B (Bld) [Mass/Vol] 72 pg/mL 0 - 100 pg/mL [facility] Natriuretic peptide B (Bld) [Mass/Vol] 72 pg/mL Normal 0-100 [facility] Comment on above: Performed By: #### B ANILINE PRESS WORKER ####[facility] (DEFAULT)[address] [place] [address] CHEM 6 (LYTES, BUN CREA)on 0 02-26-2024 Anion gap [Moles/Vol] 13 mmol/L 7 - 17 mmol/L [facility] Chloride [Moles/Vol] 107 mmol/L 98 - 10 8 mmol/L [facility] CO2 [Moles/Vol] 25 mmol/L 21 - 31 mmol/L [facility] Creatinine [Mass/Vol] 1.23 mg/dL 0.70 - 1.30 mg/dL [facility] eGFR, CKD-EPI, Male 70 - PINF [facility] Comment on above: Reported eGFR is bas ed on the CKD-EPI 2020 equation using creatinine, age, and sex. Potassium [Moles/Vol] 4.2 mmol/L 3.5 - 5.0 mmol/L [facility] Sodium [Moles/Vol] 141 mmol/L 135 - 145 mmol/L [facility] Urea nitrogen [Mass/Vol] 17 mg/dL 7 - 25 mg/dL [facility] Urea nitrogen/Creatinine [Mass ratio] 14 mg/mg [facility] Anion gap [Moles/Vol] 13 mmol/L Normal 7-17 [facility] Comment on above: Performed By: #### C HM6 ####[facility] (DEFAULT)[address] [place] [address] Chloride [Moles/Vol] 107 mmol/L Normal 98-108 [facility] Comment on above: Performed By: #### C HM6 ####[facility] (DEFAULT)[address] [place] [address] CO2 [Moles/Vol] 25 mmol/L Normal 21-31 [facility] Comment on above: Performed By: #### C HM6 ####[facility] (DEFAULT)[address] [place] [address] Creatinine [Mass/Vol] 1.23 mg/dL Normal 0.70-1.30 [facility] Comment on above: Performed By: #### C HM6 ####[facility] (DEFAULT)[address] [place] [address] GFR/1.73 sq M.predicted among non-blacks MDRD (S/P/Bld) [Vol rate/Area] 70 mL/min/{1.73_m2} Normal >=60 [facility] Comment on above: Result Comment: Repo rted eGFR is based on the CKD-EPI 2020 equation using creatinine, age, and sex. Performed By: #### C HM6 ####[facility] (DEFAULT)[address] [place] [address] Potassium [Moles/Vol] 4.2 mmol/L Normal 3.5-5.0 [facility] Comment on above: Performed By: #### C HM6 ####[facility] (DEFAULT)[address] [place] [address] Sodium [Moles/Vol] 141 mmol/L Normal 135-145 [facility] Comment on above: Performed By: #### C HM6 ####[facility] (DEFAULT)[address] [place] [address] Urea nitrogen [Mass/Vol] 17 mg/dL Normal 7-25 [facility] Comment on above: Performed By: #### C HM6 ####[facility] (DEFAULT)[address] [place] [address] Urea nitrogen/Creatinine [Mass ratio] 14 mg/mg Normal [facility] Comment on above: Performed By: #### C HM6 ####[facility] (DEFAULT)[address] [place] [address] CBC,PLATELETSon 01-23-2024 Erythrocyte distribution width (RBC) [Ratio] 14.2 % 10.9 - 14.3 % [facility] Hematocrit (Bld) [Volume fraction] 37.0 % Low 39.6 - 48.8 % [facility] Hemoglobin (Bld) [Mass/Vol] 12.0 g/dL Low 13.4 - 16.8 g/dL [facility] Interpretation and review of laboratory results Abnormal [facility] MCH (RBC) [Entitic mass] 28.6 pg 26.1 - 33.3 pg [facility] MCHC (RBC) [Mass/Vol] 32.4 g/dL 31.9 - 36.5 g/dL [facility] MCV (RBC) [Entitic vol] 88.1 fL 79.0 - 94.5 fL [facility] Platelet mean volume (Bld) [Entitic vol] 10.4 fL 8.7 - 12.3 fL [facility] Platelets (Bld) [#/Vol] 170 10*3/uL 146 - 337 K/uL [facility] RBC (Bld) [#/Vol] 4.20 10*6/uL Low [facility] WBC (Bld) [#/Vol] 3.70 10*3/uL Low 3.73 - 10. 10 K/uL [facility] Hematocrit (Bld) [Volume fraction] 37.0 % Low 39.6-48.8 [facility] Comment on above: Performed By: #### [facility] ####[facility] (DEFAULT)[address] [place] [address] Hemoglobin (Bld) [Mass/Vol] 12.0 g/dL Low 13.4-16.8 [facility] Comment on above: Performed By: #### H [facility] ####[facility] (DEFAULT)[address] [place] [address] MCV (RBC) [Entitic vol] 88.1 fL Normal 79.0-94.5 [facility] Comment on above: Performed By: #### H [facility] ####[facility] (DEFAULT)[address] [place] [address] Mean Cell Hgb 28.6 pg Normal 26.1-33.3 [facility] Comment on above: Performed By: #### H EMOGC ####[facility] (DEFAULT)[address] [place] [address] Mean Cell Hgb Conc 32.4 g/dL Normal 31.9-36.5 [facility] Comment on above: Performed By: #### H EMOGC ####[facility] (DEFAULT)[address] [place] [address] Platelet mean volume (Bld) [Entitic vol] 10.4 fL Normal 8.7-12.3 [facility] Comment on above: Performed By: #### H EMOGC ####[facility] (DEFAULT)[address] [place] [address] Platelets (Bld) [#/Vol] 170 10*3/uL Normal 146-337 [facility] Comment on above: Performed By: #### H EMOGC ####[facility] (DEFAULT)[address] [place] [address] RBC (Bld) [#/Vol] 4.20 10*6/uL Low 4.38-5.83 [facility] Comment on above: Performed By: #### H EMOGC ####[facility] (DEFAULT)[address] [place] [address] RBC Distribution 14.2 % Normal 10.9-14.3 [facility] Comment on above: Performed By: #### H EMOGC ####[facility] (DEFAULT)[address] [place] [address] WBC (Bld) [#/Vol] 3.70 10*3/uL Low 3.73-10.10 [facility] Comment on above: Performed By: #### H EMOGC ####[facility] (DEFAULT)[address] [place] [address] CHEM 7 (LYTES,BUN,CREA,GLUC) on 01-23-2024 Anion gap [Moles/Vol] 14 mmol/L 7 - 17 mmol/L [facility] Chloride [Moles/Vol] 105 mmol/L 98 - 10 8 mmol/L [facility] CO2 [Moles/Vol] 25 mmol/L 21 - 31 mmol/L [facility] Creatinine [Mass/Vol] 1.32 mg/dL High 0.70 - 1.30 mg/dL [facility] eGFR, CKD-EPI, Male 65 - PINF [facility] Comment on above: Reported eGFR is bas ed on the CKD-EPI 2020 equation using creatinine, age, and sex. Glucose [Mass/Vol] 94 mg/dL 70 - 99 mg/dL [facility] Osmolality Calc [Osmolality] 296 [facility] Potassium [Moles/Vol] 3.8 mmol/L 3.5 - 5.0 mmol/L [facility] Sodium [Moles/Vol] 140 mmol/L 135 - 145 mmol/L [facility] Urea nitrogen [Mass/Vol] 23 mg/dL 7 - 25 mg/dL [facility] Urea nitrogen/Creatinine [Mass ratio] 17 mg/mg [facility] Anion gap [Moles/Vol] 14 mmol/L Normal 7-17 [facility] Comment on above: Performed By: #### NATHANIEL RAMÍREZ, HFP ####[facility] (DEFAULT)[address] [place] [address] Chloride [Moles/Vol] 105 mmol/L Normal 98-108 [facility] Comment on above: Performed By: #### NATHANIEL RAMÍREZ, HFP ####[facility] (DEFAULT)[address] [place] [address] CO2 [Moles/Vol] 25 mmol/L Normal 21-31 [facility] Comment on above: Performed By: #### NATHANIEL RAMÍREZ, HFP ####[facility] (DEFAULT)[address] [place] [address] Creatinine [Mass/Vol] 1.32 mg/dL High 0.70-1.30 [facility] Comment on above: Performed By: #### M NATHANIEL BLOOM, HFP ####[facility] (DEFAULT)[address] [place] [address] GFR/1.73 sq M.predicted among non-blacks MDRD (S/P/Bld) [Vol rate/Area] 65 mL/min/{1.73_m2} Normal >=60 [facility] Comment on above: Result Comment: Repo rted eGFR is based on the CKD-EPI 2020 equation using creatinine, age, and sex. Performed By: #### M NATHANIEL BLOOM, HFP ####[facility] (DEFAULT)[address] [place] [address] Glucose [Mass/Vol] 94 mg/dL Normal 70-99 [facility] Comment on above: Performed By: #### M NATHANIEL BLOOM, HFP ####[facility] (DEFAULT)[address] [place] [address] Osmolality [Osmolality] 296 mosm/kg Normal 278-305 [facility] Comment on above: Performed By: #### M NATHANIEL BLOOM, HFP ####[facility] (DEFAULT)[address] [place] [address] Potassium [Moles/Vol] 3.8 mmol/L Normal 3.5-5.0 [facility] Comment on above: Performed By: #### M NATHANIEL BLOOM, HFP ####[facility] (DEFAULT)[address] [place] [address] Sodium [Moles/Vol] 140 mmol/L Normal 135-145 [facility] Comment on above: Performed By: #### M NATHANIEL BLOOM, HFP ####[facility] (DEFAULT)[address] [facility] [place] [address] Urea nitrogen [Mass/Vol] 23 mg/dL Normal 7-25 [facility] Comment on above: Performed By: #### NATHANIEL RAMÍREZ, HFP ####[facility] (DEFAULT)[address] [facility] [place] [address] Urea nitrogen/Creatinine [Mass ratio] 17 mg/mg Normal [facility] Comment on above: Performed By: #### M NATHANIEL BLOOM, HFP ####[facility] (DEFAULT)[address] [facility] [place] [address] GLUCOSE POCon 01-23-2024 Glucose [Mass/Vol] 88 mg/dL 70 - 99 mg/dL [facility] POC Sample Type [facility] Test performed at ad dress of the patient encounter. [facility] Glucose [Mass/Vol] 191 mg/dL High 70 - 99 mg/dL [facility] Interpretation and review of laboratory results Abnormal [facility] POC Sample Type CAPBL [facility] Test performed at ad dress of the patient encounter. [facility] HEPATIC FUNCTION PANELon Albumin [Mass/Vol] 3.9 g/dL 3.5 - 5.0 g/dL [facility] ALP [Catalytic activity/Vol] 83 U/L 32 - 126 U/L [facility] ALT [Catalytic activity/Vol] 9 U/L Low 10 - 52 U/L [facility] AST [Catalytic activity/Vol] 17 U/L 10 - 39 U/L [facility] Bilirubin [Mass/Vol] 1.6 mg/dL High NINF - 1.5 mg/dL [facility] Bilirubin.direct [Mass/Vol] 0.4 mg/dL High NINF - 0.3 mg/dL [facility] Protein [Mass/Vol] 6.6 g/dL 6.4 - 8.3 g/dL [facility] Albumin [Mass/Vol] 3.9 g/dL Normal 3.5-5.0 [facility] Comment on above: Performed By: #### M MERLE CHM7, HFP ####[facility] (DEFAULT)[address] [place] [address] ALP [Catalytic activity/Vol] 83 U/L Normal 32-126 [facility] Comment on above: Performed By: #### M MERLE CHM7, HFP ####[facility] (DEFAULT)[address] [place] [address] ALT [Catalytic activity/Vol] 9 U/L Low 10-52 [facility] Comment on above: Performed By: #### M MERLE CHM7, HFP ####[facility] (DEFAULT)[address] [place] [address] AST [Catalytic activity/Vol] 17 U/L Normal 10-39 [facility] Comment on above: Performed By: #### M MERLE CHM7, HFP ####[facility] (DEFAULT)[address] [place] [address] Bilirubin [Mass/Vol] 1.6 mg/dL High <1.5 [facility] Comment on above: Performed By: #### M GO CHM7, HFP ####[facility] (DEFAULT)[address] [place] [address] Bilirubin.indirect [Mass/Vol] 0.4 mg/dL High <0.3 [facility] Comment on above: Performed By: #### M GO CHM7, HFP ####[facility] (DEFAULT)[address] [place] [address] Protein [Mass/Vol] 6.6 g/dL Normal 6.4-8.3 [facility] Comment on above: Performed By: #### M GO, CHM7, HFP ####[facility] (DEFAULT)[address] [place] [address] ITRACONAZOLE LEVELon 024 Hydroxyitraconazole [Mass/Vol] 7.6 mcg/mL [facility] Comment on above: REFERENCE VALUE No therapeutic range established; activity and serum concentration are similar to parent drug. ADDITIONAL INFORMATION This test was developed and its performance characteristics determined by [facility] in a manner consistent with CLIA requirements. This test has not been cleared or approved by the U.S. Food and Drug Administration. Test Performed by: [facility] - [address] [address] [employer] Maker: Rosendo Bose M.D. Ph.D.; CLIA# [id number] Itraconazole [Mass/Vol] 6.0 mcg/mL [facility] Comment on above: REFERENCE VALUE >0.5 (localized infection), >1.0 (systemic infection) [facility] MAGNESIUMon 01-23-2024 Interpretation and review of laboratory results Normal [facility] Magnesium [Mass/Vol] 1.8 mg/dL 1.6 - 2 .6 mg/dL [facility] Magnesium [Mass/Vol] 1.8 mg/dL Normal 1.6-2.6 [facility] Comment on above: Performed By: #### M HELEN BLOOMM7, HFP ####[facility] (DEFAULT)[address] [place] [address] No Panel Informationon 01-23 Interpretation and review of laboratory results Abnormal [facility] TACROLIMUS LEVEL, TROUGH (MS E DRUG LEVEL)on 01-23-2024 Interpretation and review of laboratory results Normal [facility] Tacrolimus (Bld) [Mass/Vol] 7.0 ng/mL Bone Marrow Transplant: 4.0-12.0, Therapeutic: 5.0-15.0 [facility] Method performed is a chemiluminescent microparticle immunoasssay on the [employer] i2000. The range is based on experience at [facility] and users should be aware that target concentrations vary widely depending on concomitant therapy, time post-transplant, and desired degree of immunosuppression. [facility] Tacrolimus, Trough 7.0 ng/mL Normal Bone Susana ow Transplant: 4.0-12.0, Therapeutic: 5.0-15.0 [facility] Comment on above: Order Comment: Pleas e draw at specified interval PRIOR to dose. Do not hold dose to wait for level. Specimens batched twice per day, (M-F) and once per day weekendsMethod performed is a chemiluminescent microparticle immunoasssay on the [employer] i2000.The range is based on experience at [facility] and users should be aware that target concentrations vary widely depending on concomitant therapy, time post-transplant, and desired degree of immunosuppression. Performed By: #### T ACRO ####[facility] (DEFAULT)[address] [place] [address] CARDIAC RHYTHM (SCANNED)on 0 01-22-2024 [facility] CBC,PLATELETSon 01-22-2024 Erythrocyte distribution width (RBC) [Ratio] 14.1 % 10.9 - 14.3 % [facility] Hematocrit (Bld) [Volume fraction] 41.5 % 39.6 - 48.8 % [facility] Hemoglobin (Bld) [Mass/Vol] 13.3 g/dL Low 13.4 - 16.8 g/dL [facility] Interpretation and review of laboratory results Abnormal [facility] MCH (RBC) [Entitic mass] 27.8 pg 26.1 - 33.3 pg [facility] MCHC (RBC) [Mass/Vol] 32.0 g/dL 31.9 - 36.5 g/dL [facility] MCV (RBC) [Entitic vol] 86.8 fL 79.0 - 94.5 fL [facility] Platelet mean volume (Bld) [Entitic vol] 10.5 fL 8.7 - 12.3 fL [facility] Platelets (Bld) [#/Vol] 186 10*3/uL 146 - 337 K/uL [facility] RBC (Bld) [#/Vol] 4.78 10*6/uL [facility] WBC (Bld) [#/Vol] 3.74 10*3/uL 3.73 - 10. 10 K/uL [facility] Hematocrit (Bld) [Volume fraction] 41.5 % Normal 39.6-48.8 [facility] Comment on above: Performed By: #### [facility] ####[facility] (DEFAULT)[address] [facility] [place] [address] Hemoglobin (Bld) [Mass/Vol] 13.3 g/dL Low 13.4-16.8 [facility] Comment on above: Performed By: #### H EMO ####[facility] (DEFAULT)[address] [facility] [place] [address] MCV (RBC) [Entitic vol] 86.8 fL Normal 79.0-94.5 [facility] Comment on above: Performed By: #### H EMO ####[facility] (DEFAULT)[address] [facility] [place] [address] Mean Cell Hgb 27.8 pg Normal 26.1-33.3 [facility] Comment on above: Performed By: #### H EMOGC ####[facility] (DEFAULT)[address] [facility] [place] [address] Mean Cell Hgb Conc 32.0 g/dL Normal 31.9-36.5 [facility] Comment on above: Performed By: #### H EMOGC ####[facility] (DEFAULT)[address] [facility] [place] [address] Platelet mean volume (Bld) [Entitic vol] 10.5 fL Normal 8.7-12.3 [facility] Comment on above: Performed By: #### [facility] ####[facility] (DEFAULT)[address] [facility] [place] [address] Platelets (Bld) [#/Vol] 186 10*3/uL Normal 146-337 [facility] Comment on above: Performed By: #### [facility] ####[facility] (DEFAULT)[address] [place] [address] RBC (Bld) [#/Vol] 4.78 10*6/uL Normal 4.38-5.83 [facility] Comment on above: Performed By: #### [facility] ####[facility] (DEFAULT)[address] [facility] [place] [address] RBC Distribution 14.1 % Normal 10.9-14.3 [facility] Comment on above: Performed By: #### [facility] ####[facility] (DEFAULT)[address] [place] [address] WBC (Bld) [#/Vol] 3.74 10*3/uL Normal 3.73-10.10 [facility] Comment on above: Performed By: #### [facility] ####[facility] (DEFAULT)[address] [place] [address] CHEM 7 (LYTES,BUN,CREA,GLUC) on 01-22-2024 Anion gap [Moles/Vol] 13 mmol/L 7 - 17 mmol/L [facility] Chloride [Moles/Vol] 109 mmol/L High 98 - 10 8 mmol/L [facility] CO2 [Moles/Vol] 23 mmol/L 21 - 31 mmol/L [facility] Creatinine [Mass/Vol] 1.10 mg/dL 0.70 - 1.30 mg/dL [facility] eGFR, CKD-EPI, Male 81 - PINF [facility] Comment on above: Reported eGFR is bas ed on the CKD-EPI 2021 equation using creatinine, age, and sex. Glucose [Mass/Vol] 84 mg/dL 70 - 99 mg/dL [facility] Interpretation and review of laboratory results Abnormal [facility] Osmolality Calc [Osmolality] 295 [facility] Potassium [Moles/Vol] 4.0 mmol/L 3.5 - 5.0 mmol/L [facility] Sodium [Moles/Vol] 141 mmol/L 135 - 145 mmol/L [facility] Urea nitrogen [Mass/Vol] 16 mg/dL 7 - 25 mg/dL [facility] Urea nitrogen/Creatinine [Mass ratio] 15 mg/mg [facility] Anion gap [Moles/Vol] 13 mmol/L Normal 7-17 [facility] Comment on above: Performed By: #### Rod BLOOM CHM7 ####[facility] (DEFAULT)[address] [place] [address] Chloride [Moles/Vol] 109 mmol/L High 98-108 [facility] Comment on above: Performed By: #### Rod BLOOM CHM7 ####[facility] (DEFAULT)[address] [place] [address] CO2 [Moles/Vol] 23 mmol/L Normal 21-31 [facility] Comment on above: Performed By: #### Rod BLOOM CHM7 ####[facility] (DEFAULT)[address] [place] [address] Creatinine [Mass/Vol] 1.10 mg/dL Normal 0.70-1.30 [facility] Comment on above: Performed By: #### Rod BLOOM CHM7 ####[facility] (DEFAULT)[address] [place] [address] GFR/1.73 sq M.predicted among non-blacks MDRD (S/P/Bld) [Vol rate/Area] 81 mL/min/{1.73_m2} Normal >=60 [facility] Comment on above: Result Comment: Repo rted eGFR is based on the CKD-EPI 2021 equation using creatinine, age, and sex. Performed By: #### NATHANIEL RAMÍREZ ####[facility] (DEFAULT)[address] [place] [address] Glucose [Mass/Vol] 84 mg/dL Normal 70-99 [facility] Comment on above: Performed By: #### TJ RAMÍREZ7 ####[facility] (DEFAULT)[address] [place] [address] Osmolality [Osmolality] 295 mosm/kg Normal 278-305 [facility] Comment on above: Performed By: #### TJ RAMÍREZ7 ####[facility] (DEFAULT)[address] [place] [address] Potassium [Moles/Vol] 4.0 mmol/L Normal 3.5-5.0 [facility] Comment on above: Performed By: #### NATHANIEL RAMÍREZ ####[facility] (DEFAULT)[address] [place] [address] Sodium [Moles/Vol] 141 mmol/L Normal 135-145 [facility] Comment on above: Performed By: #### TJ RAMÍREZ7 ####[facility] (DEFAULT)[address] [place] [address] Urea nitrogen [Mass/Vol] 16 mg/dL Normal 7-25 [facility] Comment on above: Performed By: #### TJ RAMÍREZ7 ####[facility] (DEFAULT)[address] [place] [address] Urea nitrogen/Creatinine [Mass ratio] 15 mg/mg Normal [facility] Comment on above: Performed By: #### NATHANIEL RAMÍREZ ####[facility] (DEFAULT)[address] [place] [address] MAGNESIUMon 01-22-2024 Interpretation and review of laboratory results Normal [facility] Magnesium [Mass/Vol] 2.0 mg/dL 1.6 - 2 .6 mg/dL [facility] Magnesium [Mass/Vol] 2.0 mg/dL Normal 1.6-2.6 [facility] Comment on above: Performed By: #### M [facility] ####[facility] (DEFAULT)[address] [place] [address] No Panel Informationon 01-22 [facility] PT,INR,PTTon 01-22-2024 aPTT Coag (PPP) [Time] 29.2 s [facility] INR Coag (Bld) [Relative time] 1.1 {INR} 0.9 - 1.1 [facility] Interpretation and review of laboratory results Abnormal [facility] PT Coag (PPP) [Time] 14.3 s [facility] aPTT Coag (Bld) [Time] 29.2 s Normal 24.0-34.3 [facility] Comment on above: Performed By: #### P TPTT ####[facility] (DEFAULT)[address] [place] [address] INR Coag (PPP) [Relative time] 1.1 {INR} Normal 0.9-1.1 [facility] Comment on above: Performed By: #### P TPTT ####[facility] (DEFAULT)[address] [place] [address] PT Coag (PPP) [Time] 14.3 s High 11.9-14.2 [facility] Comment on above: Performed By: #### P TPTT ####[facility] (DEFAULT)[address] [place] [id number] TACROLIMUS LEVEL, TROUGH (MS E DRUG LEVEL)Ordered By: Sheree Jensen on 01-22-2024 Interpretation and review of laboratory results Normal [facility] Tacrolimus (Bld) [Mass/Vol] 7.9 ng/mL Bone Marrow Transplant: 4.0-12.0, Therapeutic: 5.0-15.0 [facility] Method performed is a chemiluminescent microparticle immunoasssay on the [employer] i2000. The range is based on experience at [facility] and users should be aware that target concentrations vary widely depending on concomitant therapy, time post-transplant, and desired degree of immunosuppression. [facility] TACROLIMUS LEVEL, TROUGH (MS E DRUG LEVEL)on 01-22-2024 Tacrolimus, Trough 7.9 ng/mL Normal Bone Susana ow Transplant: 4.0-12.0, Therapeutic: 5.0-15.0 [facility] Comment on above: Order Comment: Pleas e draw at specified interval PRIOR to dose. Do not hold dose to wait for level. Specimens batched twice per day, (M-F) and once per day weekendsMethod performed is a chemiluminescent microparticle immunoasssay on the [employer] i2000.The range is based on experience at [facility] and users should be aware that target concentrations vary widely depending on concomitant therapy, time post-transplant, and desired degree of immunosuppression. Performed By: #### T ACRO ####[facility] (DEFAULT)[address] [place] [address] TYPE AND SCREENon 01-22-2024 ABO/RH(D) TYPE Positive [facility] ABO/RH(D) TYPE Positive Normal [facility] Comment on above: Performed By: #### X M ####[facility] (DEFAULT)[address] [place] [address] [place] Unspecified body regionOr dered By: Unassigned Pacs on 01-22-2024 [facility] Work Phone: [place] Unspecified body regionon 01-22-2024 Radiology Study observation (narrative) [facility] CBC,PLATELETSon 01-21-2024 Erythrocyte distribution width (RBC) [Ratio] 14.0 % 10.9 - 14.3 % [facility] Hematocrit (Bld) [Volume fraction] 39.4 % Low 39.6 - 48.8 % [facility] Hemoglobin (Bld) [Mass/Vol] 12.7 g/dL Low 13.4 - 16.8 g/dL [facility] Interpretation and review of laboratory results Abnormal [facility] MCH (RBC) [Entitic mass] 28.0 pg 26.1 - 33.3 pg [facility] MCHC (RBC) [Mass/Vol] 32.2 g/dL 31.9 - 36.5 g/dL [facility] MCV (RBC) [Entitic vol] 87.0 fL 79.0 - 94.5 fL [facility] Platelet mean volume (Bld) [Entitic vol] 10.2 fL 8.7 - 12.3 fL [facility] Platelets (Bld) [#/Vol] 157 10*3/uL 146 - 337 K/uL [facility] RBC (Bld) [#/Vol] 4.53 10*6/uL [facility] WBC (Bld) [#/Vol] 3.42 10*3/uL Low 3.73 - 10. 10 K/uL [facility] Hematocrit (Bld) [Volume fraction] 39.4 % Low 39.6-48.8 [facility] Comment on above: Performed By: #### [facility] ####[facility] (DEFAULT)[address] [place] [address] Hemoglobin (Bld) [Mass/Vol] 12.7 g/dL Low 13.4-16.8 [facility] Comment on above: Performed By: #### [facility] ####[facility] (DEFAULT)[address] [place] [address] MCV (RBC) [Entitic vol] 87.0 fL Normal 79.0-94.5 [facility] Comment on above: Performed By: #### [facility] ####[facility] (DEFAULT)[address] [place] [address] Mean Cell Hgb 28.0 pg Normal 26.1-33.3 [facility] Comment on above: Performed By: #### [facility] ####[facility] (DEFAULT)[address] [place] [address] Mean Cell Hgb Conc 32.2 g/dL Normal 31.9-36.5 [facility] Comment on above: Performed By: #### H EMOGC ####[facility] (DEFAULT)[address] [place] [address] Platelet mean volume (Bld) [Entitic vol] 10.2 fL Normal 8.7-12.3 [facility] Comment on above: Performed By: #### H EMOGC ####[facility] (DEFAULT)[address] [facility] [place] [address] Platelets (Bld) [#/Vol] 157 10*3/uL Normal 146-337 [facility] Comment on above: Performed By: #### H EMOGC ####[facility] (DEFAULT)[address] [place] [address] RBC (Bld) [#/Vol] 4.53 10*6/uL Normal 4.38-5.83 [facility] Comment on above: Performed By: #### H EMOGC ####[facility] (DEFAULT)[address] [facility] [place] [address] RBC Distribution 14.0 % Normal 10.9-14.3 [facility] Comment on above: Performed By: #### H EMOGC ####[facility] (DEFAULT)[address] [place] [address] WBC (Bld) [#/Vol] 3.42 10*3/uL Low 3.73-10.10 [facility] Comment on above: Performed By: #### H EMOGC ####[facility] (DEFAULT)[address] [place] [address] CHEM 7 (LYTES,BUN,CREA,GLUC) on 01-21-2024 Anion gap [Moles/Vol] 12 mmol/L 7 - 17 mmol/L [facility] Chloride [Moles/Vol] 107 mmol/L 98 - 10 8 mmol/L [facility] CO2 [Moles/Vol] 26 mmol/L 21 - 31 mmol/L [facility] Creatinine [Mass/Vol] 1.11 mg/dL 0.70 - 1.30 mg/dL [facility] eGFR, CKD-EPI, Male 80 - PINF [facility] Comment on above: Reported eGFR is bas ed on the CKD-EPI 2020 equation using creatinine, age, and sex. Glucose [Mass/Vol] 93 mg/dL 70 - 99 mg/dL [facility] Osmolality Calc [Osmolality] 295 [facility] Potassium [Moles/Vol] 3.9 mmol/L 3.5 - 5.0 mmol/L [facility] Sodium [Moles/Vol] 141 mmol/L 135 - 145 mmol/L [facility] Urea nitrogen [Mass/Vol] 15 mg/dL 7 - 25 mg/dL [facility] Urea nitrogen/Creatinine [Mass ratio] 14 mg/mg [facility] Anion gap [Moles/Vol] 12 mmol/L Normal 7-17 [facility] Comment on above: Performed By: #### NATHANIEL RAMÍREZ ####[facility] (DEFAULT)[address] [place] [address] Chloride [Moles/Vol] 107 mmol/L Normal 98-108 [facility] Comment on above: Performed By: ###NATHANIEL HERNANDEZ ####[facility] (DEFAULT)[address] [place] [address] CO2 [Moles/Vol] 26 mmol/L Normal 21-31 [facility] Comment on above: Performed By: #### NATHANIEL RAMÍREZ ####[facility] (DEFAULT)[address] [place] [address] Creatinine [Mass/Vol] 1.11 mg/dL Normal 0.70-1.30 [facility] Comment on above: Performed By: #### NATHANIEL RAMÍREZ ####[facility] (DEFAULT)[address] [place] [address] GFR/1.73 sq M.predicted among non-blacks MDRD (S/P/Bld) [Vol rate/Area] 80 mL/min/{1.73_m2} Normal >=60 [facility] Comment on above: Result Comment: Repo rted eGFR is based on the CKD-EPI 2020 equation using creatinine, age, and sex. Performed By: #### Rod BLOOM CHM7 ####[facility] (DEFAULT)[address] [place] [address] Glucose [Mass/Vol] 93 mg/dL Normal 70-99 [facility] Comment on above: Performed By: #### Rod BLOOM CHM7 ####[facility] (DEFAULT)[address] [place] [address] Osmolality [Osmolality] 295 mosm/kg Normal 278-305 [facility] Comment on above: Performed By: #### Rod BLOOM CHM7 ####[facility] (DEFAULT)[address] [place] [address] Potassium [Moles/Vol] 3.9 mmol/L Normal 3.5-5.0 [facility] Comment on above: Performed By: #### Rod BLOOM CHM7 ####[facility] (DEFAULT)[address] [place] [address] Sodium [Moles/Vol] 141 mmol/L Normal 135-145 [facility] Comment on above: Performed By: #### Rod BLOOM CHM7 ####[facility] (DEFAULT)[address] [place] [address] Urea nitrogen [Mass/Vol] 15 mg/dL Normal 7-25 [facility] Comment on above: Performed By: #### Rod BLOOM CHM7 ####[facility] (DEFAULT)[address] [place] [address] Urea nitrogen/Creatinine [Mass ratio] 14 mg/mg Normal [facility] Comment on above: Performed By: #### [facility] ####[facility] (DEFAULT)[address] [place] [address] Cardiac catheterization stud yOrdered By: Kelvin Donohue on 01-21-2024 Body surface area Derived from formula 2.08 m2 [facility] Work Phone: [facility] Work Phone: Cardiac catheterization stud yon [...] with fistula occlusion Kelvin Donohue MD, MPH [employer]. Section of Advanced Heart Failure and Transplantation Division of Cardiovascular Diseases [facility] [email or web address] INVASIVE CARDIOVASCULAR PROC EDUREon 01-21-2024 INVASIVE CARDIOVASCULAR PROCEDURE Normal [facility] MAGNESIUMon 01-21-2024 Interpretation and review of laboratory results Abnormal [facility] Magnesium [Mass/Vol] 1.5 mg/dL Low 1.6 - 2 .6 mg/dL [facility] Magnesium [Mass/Vol] 1.5 mg/dL Low 1.6-2.6 [facility] Comment on above: Performed By: #### M [facility] ####[facility] (DEFAULT)[address] [place] [address] No Panel Informationon 01-21 [facility] TACROLIMUS LEVEL, TROUGH (MS E DRUG LEVEL)on 01-21-2024 Interpretation and review of laboratory results Normal [facility] Tacrolimus (Bld) [Mass/Vol] 7.2 ng/mL Bone Marrow Transplant: 4.0-12.0, Therapeutic: 5.0-15.0 [facility] Method performed is a chemiluminescent microparticle immunoasssay on the [employer] i2000. The range is based on experience at [facility] and users should be aware that target concentrations vary widely depending on concomitant therapy, time post-transplant, and desired degree of immunosuppression. [facility] Tacrolimus, Trough 7.2 ng/mL Normal Bone Susana ow Transplant: 4.0-12.0, Therapeutic: 5.0-15.0 [facility] Comment on above: Order Comment: Pleas e draw at specified interval PRIOR to dose. Do not hold dose to wait for level. Specimens batched twice per day, (M-F) and once per day weekendsMethod performed is a chemiluminescent microparticle immunoasssay on the [employer] i2000.The range is based on experience at [facility] and users should be aware that target concentrations vary widely depending on concomitant therapy, time post-transplant, and desired degree of immunosuppression. Performed By: #### T ACRO ####[facility] (DEFAULT)[address] [place] [address] CBC,PLATELETSon 01-20-2024 Erythrocyte distribution width (RBC) [Ratio] 13.8 % 10.9 - 14.3 % [facility] Hematocrit (Bld) [Volume fraction] 38.9 % Low 39.6 - 48.8 % [facility] Hemoglobin (Bld) [Mass/Vol] 12.5 g/dL Low 13.4 - 16.8 g/dL [facility] Interpretation and review of laboratory results Abnormal [facility] MCH (RBC) [Entitic mass] 28.0 pg 26.1 - 33.3 pg [facility] MCHC (RBC) [Mass/Vol] 32.1 g/dL 31.9 - 36.5 g/dL [facility] MCV (RBC) [Entitic vol] 87.2 fL 79.0 - 94.5 fL [facility] Platelet mean volume (Bld) [Entitic vol] 10.2 fL 8.7 - 12.3 fL [facility] Platelets (Bld) [#/Vol] 166 10*3/uL 146 - 337 K/uL [facility] RBC (Bld) [#/Vol] 4.46 10*6/uL [facility] WBC (Bld) [#/Vol] 3.79 10*3/uL 3.73 - 10. 10 K/uL [facility] Hematocrit (Bld) [Volume fraction] 38.9 % Low 39.6-48.8 [facility] Comment on above: Performed By: #### [facility] ####[facility] (DEFAULT)[address] [place] [address] Hemoglobin (Bld) [Mass/Vol] 12.5 g/dL Low 13.4-16.8 [facility] Comment on above: Performed By: #### H EMO ####[facility] (DEFAULT)[address] [place] [address] MCV (RBC) [Entitic vol] 87.2 fL Normal 79.0-94.5 [facility] Comment on above: Performed By: #### H EMO ####[facility] (DEFAULT)[address] [place] [address] Mean Cell Hgb 28.0 pg Normal 26.1-33.3 [facility] Comment on above: Performed By: #### H EMO ####[facility] (DEFAULT)[address] [place] [address] Mean Cell Hgb Conc 32.1 g/dL Normal 31.9-36.5 [facility] Comment on above: Performed By: #### H EMO ####[facility] (DEFAULT)[address] [place] [address] Platelet mean volume (Bld) [Entitic vol] 10.2 fL Normal 8.7-12.3 [facility] Comment on above: Performed By: #### H EMO ####[facility] (DEFAULT)[address] [facility] [place] [address] Platelets (Bld) [#/Vol] 166 10*3/uL Normal 146-337 [facility] Comment on above: Performed By: #### H EMO ####[facility] (DEFAULT)[address] [facility] [place] [address] RBC (Bld) [#/Vol] 4.46 10*6/uL Normal 4.38-5.83 [facility] Comment on above: Performed By: #### H EMO ####[facility] (DEFAULT)[address] [facility] [place] [address] RBC Distribution 13.8 % Normal 10.9-14.3 [facility] Comment on above: Performed By: #### H EMO ####[facility] (DEFAULT)[address] [facility] [place] [address] WBC (Bld) [#/Vol] 3.79 10*3/uL Normal 3.73-10.10 [facility] Comment on above: Performed By: #### H EMO ####[facility] (DEFAULT)[address] [place] [address] CHEM 7 (LYTES,BUN,CREA,GLUC) on 01-20-2024 Anion gap [Moles/Vol] 12 mmol/L 7 - 17 mmol/L [facility] Chloride [Moles/Vol] 105 mmol/L 98 - 10 8 mmol/L [facility] CO2 [Moles/Vol] 28 mmol/L 21 - 31 mmol/L [facility] Creatinine [Mass/Vol] 1.12 mg/dL 0.70 - 1.30 mg/dL [facility] eGFR, CKD-EPI, Male 79 - PINF [facility] Comment on above: Reported eGFR is bas ed on the CKD-EPI 2020 equation using creatinine, age, and sex. Glucose [Mass/Vol] 88 mg/dL 70 - 99 mg/dL [facility] Osmolality Calc [Osmolality] 294 [facility] Potassium [Moles/Vol] 3.8 mmol/L 3.5 - 5.0 mmol/L [facility] Sodium [Moles/Vol] 141 mmol/L 135 - 145 mmol/L [facility] Urea nitrogen [Mass/Vol] 15 mg/dL 7 - 25 mg/dL [facility] Urea nitrogen/Creatinine [Mass ratio] 13 mg/mg [facility] Anion gap [Moles/Vol] 12 mmol/L Normal 7-17 [facility] Comment on above: Performed By: #### TAVO RAMÍREZ, CHM7 ####[facility] (DEFAULT)[address] [place] [address] Chloride [Moles/Vol] 105 mmol/L Normal 98-108 [facility] Comment on above: Performed By: #### TAVO RAMÍREZ, CHM7 ####[facility] (DEFAULT)[address] [facility] [place] [address] CO2 [Moles/Vol] 28 mmol/L Normal 21-31 [facility] Comment on above: Performed By: #### TAVO RAMÍREZ, CHM7 ####[facility] (DEFAULT)[address] [place] [address] Creatinine [Mass/Vol] 1.12 mg/dL Normal 0.70-1.30 [facility] Comment on above: Performed By: #### TAVO RAMÍREZ, CHM7 ####[facility] (DEFAULT)[address] [place] [address] GFR/1.73 sq M.predicted among non-blacks MDRD (S/P/Bld) [Vol rate/Area] 79 mL/min/{1.73_m2} Normal >=60 [facility] Comment on above: Result Comment: Repo rted eGFR is based on the CKD-EPI 2020 equation using creatinine, age, and sex. Performed By: #### TAVO RAMÍREZ, CHM7 ####[facility] (DEFAULT)[address] [place] [address] Glucose [Mass/Vol] 88 mg/dL Normal 70-99 [facility] Comment on above: Performed By: #### TAVO RAMÍREZ, CHM7 ####[facility] (DEFAULT)[address] [place] [address] Osmolality [Osmolality] 294 mosm/kg Normal 278-305 [facility] Comment on above: Performed By: #### TAVO RAMÍREZ, CHM7 ####[facility] (DEFAULT)[address] [place] [address] Potassium [Moles/Vol] 3.8 mmol/L Normal 3.5-5.0 [facility] Comment on above: Performed By: #### TAVO RAMÍREZ, CHM7 ####[facility] (DEFAULT)[address] [place] [address] Sodium [Moles/Vol] 141 mmol/L Normal 135-145 [facility] Comment on above: Performed By: #### TAVO RAMÍREZ, CHM7 ####[facility] (DEFAULT)[address] [place] [address] Urea nitrogen [Mass/Vol] 15 mg/dL Normal 7-25 [facility] Comment on above: Performed By: #### TAVO RAMÍREZ, CHM7 ####[facility] (DEFAULT)[address] [place] [address] Urea nitrogen/Creatinine [Mass ratio] 13 mg/mg Normal [facility] Comment on above: Performed By: #### M , [facility], CHM7 ####[facility] (DEFAULT)[address] [place] [address] Cardiac catheterization stud yon 01-20-2024 [facility] Radiology Study observation (narrative) [facility] Radiology Study observation (narrative) [facility] EBV BY PCR, QUANTITATIVE,BLO ODOrdered By: Charlotte Jensen on 01-20-2024 EBV DNA ESTELITA+probe (Unsp spec) [#/Vol] NINF [facility] Interpretation and review of laboratory results Normal [facility] This test was perfor med using a real time PCR assay. The dynamic range for this assay is 1000-5,000,000 IU/mL. A result <1000 IU/mL does not rule out the presence of EBV DNA in quantities below the sensitivity of this assay. This test was developed and its performance characteristics determined by The [facility] at [facility]. It has not been cleared or approved by the FDA. The laboratory is regulated under CLIA as qualified to perform high-complexity testing. This test is used for clinical purposes. It should not be regarded as investigational or for research. [facility] HEPATIC FUNCTION PANELon Albumin [Mass/Vol] 3.7 g/dL 3.5 - 5.0 g/dL [facility] ALP [Catalytic activity/Vol] 73 U/L 32 - 126 U/L [facility] ALT [Catalytic activity/Vol] 12 U/L 10 - 52 U/L [facility] AST [Catalytic activity/Vol] 19 U/L 10 - 39 U/L [facility] Bilirubin [Mass/Vol] 2.1 mg/dL High NINF - 1.5 mg/dL [facility] Bilirubin.direct [Mass/Vol] 0.5 mg/dL High NINF - 0.3 mg/dL [facility] Interpretation and review of laboratory results Abnormal [facility] Protein [Mass/Vol] 6.1 g/dL Low 6.4 - 8.3 g/dL [facility] Albumin [Mass/Vol] 3.7 g/dL Normal 3.5-5.0 [facility] Comment on above: Performed By: #### M GO, HFP, CHM7 ####[facility] (DEFAULT)[address] [place] [address] ALP [Catalytic activity/Vol] 73 U/L Normal 32-126 [facility] Comment on above: Performed By: #### M GO, HFP, CHM7 ####[facility] (DEFAULT)[address] [place] [address] ALT [Catalytic activity/Vol] 12 U/L Normal 10-52 [facility] Comment on above: Performed By: #### M GO, HFP, CHM7 ####[facility] (DEFAULT)[address] [place] [address] AST [Catalytic activity/Vol] 19 U/L Normal 10-39 [facility] Comment on above: Performed By: #### M GO, HFP, CHM7 ####[facility] (DEFAULT)[address] [place] [address] Bilirubin [Mass/Vol] 2.1 mg/dL High <1.5 [facility] Comment on above: Performed By: #### M GO, HFP, CHM7 ####[facility] (DEFAULT)[address] [place] [address] Bilirubin.indirect [Mass/Vol] 0.5 mg/dL High <0.3 [facility] Comment on above: Performed By: #### M GO, HFP, CHM7 ####[facility] (DEFAULT)[address] [place] [address] Protein [Mass/Vol] 6.1 g/dL Low 6.4-8.3 [facility] Comment on above: Performed By: #### M GO, HFP, CHM7 ####[facility] (DEFAULT)[address] [place] [address] ITRACONAZOLE LEVELon 024 Hydroxyitraconazole 7.6 mcg/mL Normal [facility] Comment on above: [...] bythe U.S. Food and Drug Administration.Test Performed by:[address] Director: Rosendo Bose M.D. Ph.D.; CLIA# [id number] Performed By: #### Y ITCON ####[facility] (DEFAULT)[address] [place] [address] Itraconazole 6.0 mcg/mL Normal [facility] Comment on above: Order Comment: Pleas e draw level at specified interval PRIOR to dose. Result Comment: ---- REFERENCE VALUE-------------------------->0.5 (localized infection), >1.0 (systemic infection) Performed By: #### Y ITCON ####[facility] (DEFAULT)[address] [place] [address] MAGNESIUMon 01-20-2024 Interpretation and review of laboratory results Normal [facility] Magnesium [Mass/Vol] 1.6 mg/dL 1.6 - 2 .6 mg/dL [facility] Magnesium [Mass/Vol] 1.6 mg/dL Normal 1.6-2.6 [facility] Comment on above: Performed By: #### M MERLE, [facility], CHM7 ####[facility] (DEFAULT)[address] [place] [id number] No Panel Informationon 01-20 [facility] POCT CO-OXIMETRYon Hemoglobin (Bld) [Mass/Vol] 12.8 g/dL Low 13.4 - 16.8 g/dL [facility] Interpretation and review of laboratory results Abnormal [facility] Oxyhemoglobin 69 % Low 94 - 98 % [facility] Ordering physician notified. Test performed at address of the patient encounter. [facility] Hemoglobin (Bld) [Mass/Vol] 13.3 g/dL Low 13.4 - 16.8 g/dL [facility] Interpretation and review of laboratory results Abnormal [facility] Oxyhemoglobin 69 % Low 94 - 98 % [facility] Ordering physician notified. Test performed at address of the patient encounter. [facility] PT,INR,PTTon 01-20-2024 aPTT Coag (PPP) [Time] 30.6 s [facility] INR Coag (Bld) [Relative time] 1.2 {INR} High 0.9 - 1.1 [facility] Interpretation and review of laboratory results Abnormal [facility] PT Coag (PPP) [Time] 15.5 s High [facility] aPTT Coag (Bld) [Time] 30.6 s Normal 24.0-34.3 [facility] Comment on above: Performed By: #### P TPTT ####[facility] (DEFAULT)[address] [place] [address] INR Coag (PPP) [Relative time] 1.2 {INR} High 0.9-1.1 [facility] Comment on above: Performed By: #### P TPTT ####[facility] (DEFAULT)[address] [facility] [place] [address] PT Coag (PPP) [Time] 15.5 s High 11.9-14.2 [facility] Comment on above: Performed By: #### P TPTT ####[facility] (DEFAULT)[address] [place] [address] TACROLIMUS LEVEL, TROUGH (MS E DRUG LEVEL)Ordered By: Yanira Marcum on 01-20-2024 Interpretation and review of laboratory results Normal [facility] Tacrolimus (Bld) [Mass/Vol] 7.7 ng/mL Bone Marrow Transplant: 4.0-12.0, Therapeutic: 5.0-15.0 [facility] Method performed is a chemiluminescent microparticle immunoasssay on the [employer] i2000. The range is based on experience at [facility] and users should be aware that target concentrations vary widely depending on concomitant therapy, time post-transplant, and desired degree of immunosuppression. [facility] TACROLIMUS LEVEL, TROUGH (MS E DRUG LEVEL)on 01-20-2024 Tacrolimus, Trough 7.7 ng/mL Normal Bone Susana ow Transplant: 4.0-12.0, Therapeutic: 5.0-15.0 [facility] Comment on above: Order Comment: Pleas e draw at specified interval PRIOR to dose. Do not hold dose to wait for level. Specimens batched twice per day, (M-) and once per day weekendsMethod performed is a chemiluminescent microparticle immunoasssay on the [employer] i2000.The range is based on experience at [facility] and users should be aware that target concentrations vary widely depending on concomitant therapy, time post-transplant, and desired degree of immunosuppression. Performed By: #### T ACRO ####[facility] (DEFAULT)[address] [place] [address] CBC,PLATELETSon 01-19-2024 Erythrocyte distribution width (RBC) [Ratio] 13.9 % 10.9 - 14.3 % [facility] Hematocrit (Bld) [Volume fraction] 37.5 % Low 39.6 - 48.8 % [facility] Hemoglobin (Bld) [Mass/Vol] 12.1 g/dL Low 13.4 - 16.8 g/dL [facility] Interpretation and review of laboratory results Abnormal [facility] MCH (RBC) [Entitic mass] 28.3 pg 26.1 - 33.3 pg [facility] MCHC (RBC) [Mass/Vol] 32.3 g/dL 31.9 - 36.5 g/dL [facility] MCV (RBC) [Entitic vol] 87.8 fL 79.0 - 94.5 fL [facility] Platelet mean volume (Bld) [Entitic vol] 10.4 fL 8.7 - 12.3 fL [facility] Platelets (Bld) [#/Vol] 163 10*3/uL 146 - 337 K/uL [facility] RBC (Bld) [#/Vol] 4.27 10*6/uL Low [facility] WBC (Bld) [#/Vol] 3.69 10*3/uL Low 3.73 - 10. 10 K/uL [facility] Hematocrit (Bld) [Volume fraction] 37.5 % Low 39.6-48.8 [facility] Comment on above: Performed By: #### [facility] ####[facility] (DEFAULT)[address] [place] [address] Hemoglobin (Bld) [Mass/Vol] 12.1 g/dL Low 13.4-16.8 [facility] Comment on above: Performed By: #### [facility] ####[facility] (DEFAULT)[address] [place] [address] MCV (RBC) [Entitic vol] 87.8 fL Normal 79.0-94.5 [facility] Comment on above: Performed By: #### [facility] ####[facility] (DEFAULT)[address] [place] [address] Mean Cell Hgb 28.3 pg Normal 26.1-33.3 [facility] Comment on above: Performed By: #### H EMOGC ####[facility] (DEFAULT)[address] [place] [address] Mean Cell Hgb Conc 32.3 g/dL Normal 31.9-36.5 [facility] Comment on above: Performed By: #### H EMOGC ####[facility] (DEFAULT)[address] [place] [address] Platelet mean volume (Bld) [Entitic vol] 10.4 fL Normal 8.7-12.3 [facility] Comment on above: Performed By: #### H EMOGC ####[facility] (DEFAULT)[address] [place] [address] Platelets (Bld) [#/Vol] 163 10*3/uL Normal 146-337 [facility] Comment on above: Performed By: #### H EMOGC ####[facility] (DEFAULT)[address] [facility] [place] [address] RBC (Bld) [#/Vol] 4.27 10*6/uL Low 4.38-5.83 [facility] Comment on above: Performed By: #### H EMOGC ####[facility] (DEFAULT)[address] [place] [address] RBC Distribution 13.9 % Normal 10.9-14.3 [facility] Comment on above: Performed By: #### H EMOGC ####[facility] (DEFAULT)[address] [place] [address] WBC (Bld) [#/Vol] 3.69 10*3/uL Low 3.73-10.10 [facility] Comment on above: Performed By: #### H EMOGC ####[facility] (DEFAULT)[address] [place] [address] CHEM 7 (LYTES,BUN,CREA,GLUC) on 01-19-2024 Anion gap [Moles/Vol] 14 mmol/L 7 - 17 mmol/L [facility] Chloride [Moles/Vol] 106 mmol/L 98 - 10 8 mmol/L [facility] CO2 [Moles/Vol] 24 mmol/L 21 - 31 mmol/L [facility] Creatinine [Mass/Vol] 1.13 mg/dL 0.70 - 1.30 mg/dL [facility] eGFR, CKD-EPI, Male 78 - PINF [facility] Comment on above: Reported eGFR is bas ed on the CKD-EPI 2020 equation using creatinine, age, and sex. Glucose [Mass/Vol] 86 mg/dL 70 - 99 mg/dL [facility] Osmolality Calc [Osmolality] 293 [facility] Potassium [Moles/Vol] 3.8 mmol/L 3.5 - 5.0 mmol/L [facility] Sodium [Moles/Vol] 140 mmol/L 135 - 145 mmol/L [facility] Urea nitrogen [Mass/Vol] 16 mg/dL 7 - 25 mg/dL [facility] Urea nitrogen/Creatinine [Mass ratio] 14 mg/mg [facility] Anion gap [Moles/Vol] 14 mmol/L Normal 7-17 [facility] Comment on above: Performed By: #### Rod BLOOM CHM7 ####[facility] (DEFAULT)[address] [place] [address] Chloride [Moles/Vol] 106 mmol/L Normal 98-108 [facility] Comment on above: Performed By: #### TJ RAMÍREZ7 ####[facility] (DEFAULT)[address] [place] [address] CO2 [Moles/Vol] 24 mmol/L Normal 21-31 [facility] Comment on above: Performed By: #### Rod BLOOM CHM7 ####[facility] (DEFAULT)[address] [place] [address] Creatinine [Mass/Vol] 1.13 mg/dL Normal 0.70-1.30 [facility] Comment on above: Performed By: #### Rod BLOOM CHM7 ####[facility] (DEFAULT)[address] [place] [address] GFR/1.73 sq M.predicted among non-blacks MDRD (S/P/Bld) [Vol rate/Area] 78 mL/min/{1.73_m2} Normal >=60 [facility] Comment on above: Result Comment: Repo rted eGFR is based on the CKD-EPI 2020 equation using creatinine, age, and sex. Performed By: #### TJ RAMÍREZ7 ####[facility] (DEFAULT)[address] [place] [address] Glucose [Mass/Vol] 86 mg/dL Normal 70-99 [facility] Comment on above: Performed By: #### TJ RAMÍREZ7 ####[facility] (DEFAULT)[address] [place] [address] Osmolality [Osmolality] 293 mosm/kg Normal 278-305 [facility] Comment on above: Performed By: #### Rod BLOOM CHM7 ####[facility] (DEFAULT)[address] [place], [place] [address], [place] [address] Potassium [Moles/Vol] 3.8 mmol/L Normal 3.5-5.0 [facility] Comment on above: Performed By: #### Rod BLOOM CHM7 ####[facility] (DEFAULT)[address] [place] [address] Sodium [Moles/Vol] 140 mmol/L Normal 135-145 [facility] Comment on above: Performed By: #### Rod BLOOM CHM7 ####[facility] (DEFAULT)[address] [place] [address] Urea nitrogen [Mass/Vol] 16 mg/dL Normal 7-25 [facility] Comment on above: Performed By: #### Rod BLOOM CHM7 ####[facility] (DEFAULT)[address] [place] [address] Urea nitrogen/Creatinine [Mass ratio] 14 mg/mg Normal [facility] Comment on above: Performed By: #### M HELEN BLOOM7 ####[facility] (DEFAULT)[address] [place] [address] EBV BY PCR, QUANTITATIVE,BLO ODon 01-19-2024 Ebv By Pcr, Quant, Blood <1000 Normal <1000 [facility] Comment on above: [...] by The [facility] at [facility]. It has not been cleared or approved by the FDA. The laboratory is regulated under CLIA as qualified to perform high-complexity testing. This test is used for clinical purposes. It should not be regarded as investigational or for research. Performed By: #### E BVPCR ####[facility] (DEFAULT)[address] [address] HISTOPLASMA AND BLASTOMYCES ANTIGEN, ENZYME IMMUNOASSAY, SERMon 01-19-2024 Histoplasma/Blastomy antonia Ag Result Not detected Not Detected [facility] Comment on above: No antigen from Hist oplasma or Blastomyces detected. False negative results may occur depending on extent of disease, and/or site of infection. Repeat testing on a new specimen if clinically indicated. Histoplasma/Blastomy antonia Ag Value Not detected ng/mL [facility] Comment on above: ADDITIONAL INFORMATION This test was developed and its performance characteristics determined by [facility] in a manner consistent with CLIA requirements. This test has not been cleared or approved by the U.S. Food and Drug Administration. Test Performed by: [facility] - [address] [address] [employer] Maker: Rosendo Bose M.D. Ph.D.; IA# [id number] [facility] MAGNESIUMon 01-19-2024 Interpretation and review of laboratory results Normal [facility] Magnesium [Mass/Vol] 1.8 mg/dL 1.6 - 2 .6 mg/dL [facility] Magnesium [Mass/Vol] 1.8 mg/dL Normal 1.6-2.6 [facility] Comment on above: Performed By: #### M HELEN BLOOM7 ####[facility] (DEFAULT)[address] [place] [address] No Panel Informationon 01-19 [facility] TACROLIMUS LEVEL, TROUGH (MS E DRUG LEVEL)Ordered By: Raymundo Mehta on 01-19-2024 Interpretation and review of laboratory results Normal [facility] Tacrolimus (Bld) [Mass/Vol] 6.8 ng/mL Bone Marrow Transplant: 4.0-12.0, Therapeutic: 5.0-15.0 [facility] Method performed is a chemiluminescent microparticle immunoasssay on the [employer] i2000. The range is based on experience at [facility] and users should be aware that target concentrations vary widely depending on concomitant therapy, time post-transplant, and desired degree of immunosuppression. [facility] TACROLIMUS LEVEL, TROUGH (MS E DRUG LEVEL)on 01-19-2024 Tacrolimus, Trough 6.8 ng/mL Normal Bone Susana ow Transplant: 4.0-12.0, Therapeutic: 5.0-15.0 [facility] Comment on above: Order Comment: Pleas e draw at specified interval PRIOR to dose. Do not hold dose to wait for level. Specimens batched twice per day, (M-F) and once per day weekendsMethod performed is a chemiluminescent microparticle immunoasssay on the [employer] i2000.The range is based on experience at [facility] and users should be aware that target concentrations vary widely depending on concomitant therapy, time post-transplant, and desired degree of immunosuppression. Performed By: #### T ACRO ####[facility] (DEFAULT)[address] [place] [address] US AV fistulaOrdered By: Diana Reyes on 01-19-2024 [facility] Work Phone: US AV fistulaon 01-19-2024 Radiology Study observation (narrative) [facility] AFP TUMOR MARKEROrdered By: Francisca Alaniz on 01-18-2024 AFP.tumor marker [Mass/Vol] ng/mL NINF - 8.1 ng/mL [facility] Comment on above: This test was perfor med on the Beta Dash Immunoassay platform by [employer] which is a two-site sandwich chemiluminescent immunoassay. It is important to note that assays using different manufacturers and/or methods may not be comparable. Interpretation and review of laboratory results Normal [facility] CBC,PLATELETSon 01-18-2024 Erythrocyte distribution width (RBC) [Ratio] 13.9 % 10.9 - 14.3 % [facility] Hematocrit (Bld) [Volume fraction] 38.4 % Low 39.6 - 48.8 % [facility] Hemoglobin (Bld) [Mass/Vol] 12.1 g/dL Low 13.4 - 16.8 g/dL [facility] Interpretation and review of laboratory results Abnormal [facility] MCH (RBC) [Entitic mass] 27.8 pg 26.1 - 33.3 pg [facility] MCHC (RBC) [Mass/Vol] 31.5 g/dL Low 31.9 - 36.5 g/dL [facility] MCV (RBC) [Entitic vol] 88.3 fL 79.0 - 94.5 fL [facility] Platelet mean volume (Bld) [Entitic vol] 10.4 fL 8.7 - 12.3 fL [facility] Platelets (Bld) [#/Vol] 183 10*3/uL 146 - 337 K/uL [facility] RBC (Bld) [#/Vol] 4.35 10*6/uL Low [facility] WBC (Bld) [#/Vol] 3.66 10*3/uL Low 3.73 - 10. 10 K/uL [facility] Hematocrit (Bld) [Volume fraction] 38.4 % Low 39.6-48.8 [facility] Comment on above: Performed By: #### H EMOGC ####[facility] (DEFAULT)[address] [place] [address] Hemoglobin (Bld) [Mass/Vol] 12.1 g/dL Low 13.4-16.8 [facility] Comment on above: Performed By: #### H EMOGC ####[facility] (DEFAULT)[address] [place] [address] MCV (RBC) [Entitic vol] 88.3 fL Normal 79.0-94.5 [facility] Comment on above: Performed By: #### H EMOGC ####[facility] (DEFAULT)[address] [place] [address] Mean Cell Hgb 27.8 pg Normal 26.1-33.3 [facility] Comment on above: Performed By: #### H EMOGC ####[facility] (DEFAULT)[address] [place] [address] Mean Cell Hgb Conc 31.5 g/dL Low 31.9-36.5 [facility] Comment on above: Performed By: #### H EMOGC ####[facility] (DEFAULT)[address] [place] [address] Platelet mean volume (Bld) [Entitic vol] 10.4 fL Normal 8.7-12.3 [facility] Comment on above: Performed By: #### H EMOGC ####[facility] (DEFAULT)[address] [place] [address] Platelets (Bld) [#/Vol] 183 10*3/uL Normal 146-337 [facility] Comment on above: Performed By: #### H EMOGC ####[facility] (DEFAULT)[address] [place] [address] RBC (Bld) [#/Vol] 4.35 10*6/uL Low 4.38-5.83 [facility] Comment on above: Performed By: #### [facility] ####[facility] (DEFAULT)[address] [place] [address] RBC Distribution 13.9 % Normal 10.9-14.3 [facility] Comment on above: Performed By: #### H [facility] ####[facility] (DEFAULT)[address] [place] [address] WBC (Bld) [#/Vol] 3.66 10*3/uL Low 3.73-10.10 [facility] Comment on above: Performed By: #### [facility] ####[facility] (DEFAULT)[address] [place] [address] CHEM 7 (LYTES,BUN,CREA,GLUC) on 01-18-2024 Anion gap [Moles/Vol] 11 mmol/L 7 - 17 mmol/L [facility] Chloride [Moles/Vol] 108 mmol/L 98 - 10 8 mmol/L [facility] CO2 [Moles/Vol] 26 mmol/L 21 - 31 mmol/L [facility] Creatinine [Mass/Vol] 1.00 mg/dL 0.70 - 1.30 mg/dL [facility] eGFR, CKD-EPI, Male - PINF [facility] Comment on above: Reported eGFR is bas ed on the CKD-EPI 2020 equation using creatinine, age, and sex. Glucose [Mass/Vol] 89 mg/dL 70 - 99 mg/dL [facility] Osmolality Calc [Osmolality] 295 [facility] Potassium [Moles/Vol] 3.9 mmol/L 3.5 - 5.0 mmol/L [facility] Sodium [Moles/Vol] 141 mmol/L 135 - 145 mmol/L [facility] Urea nitrogen [Mass/Vol] 16 mg/dL 7 - 25 mg/dL [facility] Urea nitrogen/Creatinine [Mass ratio] 16 mg/mg [facility] Anion gap [Moles/Vol] 11 mmol/L Normal 7-17 [facility] Comment on above: Performed By: #### M GO, CHM7, HFP, TSHQR ####[facility] (DEFAULT)[address] [place] [address] Chloride [Moles/Vol] 108 mmol/L Normal 98-108 [facility] Comment on above: Performed By: #### M GO, CHM7, HFP, TSHQR ####[facility] (DEFAULT)[address] [place] [address] CO2 [Moles/Vol] 26 mmol/L Normal 21-31 [facility] Comment on above: Performed By: #### M GO, CHM7, HFP, TSHQR ####[facility] (DEFAULT)[address] [place] [address] Creatinine [Mass/Vol] 1.00 mg/dL Normal 0.70-1.30 [facility] Comment on above: Performed By: #### M GO, CHM7, HFP, TSHQR ####[facility] (DEFAULT)[address] [place] [address] eGFR, CKD-EPI, Male > Normal >=60 [facility] Comment on above: Result Comment: Repo rted eGFR is based on the CKD-EPI 2020 equation using creatinine, age, and sex. Performed By: #### M GO, CHM7, HFP, TSHQR ####[facility] (DEFAULT)[address] [place] [address] Glucose [Mass/Vol] 89 mg/dL Normal 70-99 [facility] Comment on above: Performed By: #### M GO, CHM7, HFP, TSHQR ####[facility] (DEFAULT)[address] [place] [address] Osmolality [Osmolality] 295 mosm/kg Normal 278-305 [facility] Comment on above: Performed By: #### M GO, CHM7, HFP, TSHQR ####[facility] (DEFAULT)[address] [place] [address] Potassium [Moles/Vol] 3.9 mmol/L Normal 3.5-5.0 [facility] Comment on above: Performed By: #### M GO, CHM7, HFP, TSHQR ####[facility] (DEFAULT)[address] [place] [address] Sodium [Moles/Vol] 141 mmol/L Normal 135-145 [facility] Comment on above: Performed By: #### M GO, CHM7, HFP, TSHQR ####[facility] (DEFAULT)[address] [place] [address] Urea nitrogen [Mass/Vol] 16 mg/dL Normal 7-25 [facility] Comment on above: Performed By: #### M GO, CHM7, HFP, TSHQR ####[facility] (DEFAULT)[address] [place] [address] Urea nitrogen/Creatinine [Mass ratio] 16 mg/mg Normal [facility] Comment on above: Performed By: #### M GO, CHM7, HFP, TSHQR ####[facility] (DEFAULT)[address] [place] [address] Cardiac echo study Procedure Ordered By: Gian Carlos on 01-18-2024 Ao ASC index 1.63 cm/m2 [facility] Work Phone: Ao peak meliton 1.46 m/s [facility] Work Phone: Ao SOV index 1.56 cm/m2 [facility] Work Phone: Ao STJ index 1.25 cm/m2 [facility] Work Phone: Ao VTI 35.74 cm [facility] Work Phone: Ascending aorta 3.[address] [facility] Work Phone: AV LVOT peak gradient 4 mmHg [facility] Work Phone: AV mean gradient 5 mmHg [facility] Work Phone: AV peak gradient 9 mmHG [facility] Work Phone: AV valve area 3.09 cm2 [facility] Work Phone: AV Velocity Ratio 0.73 [facility] Work Phone: VEGA (continuity Vmax) 3.01 cm2 [facility] Work Phone: VEGA (continuity VTI) 3.09 cm2 [facility] Work Phone: VEGA index (continuity Vmax) 1.45 m/s [facility] Work Phone: VEGA index (continuity VTI) 1.49 cm2/m2 [facility] Work Phone: Avg e' pk meliton 0.07 m/s [facility] Work Phone: Avg E/e' ratio 19.45 [facility] Work Phone: Body surface area Derived from formula 2.08 m2 [facility] Work Phone: BP EF 62 % [facility] Work Phone: DI (Vmax) 0.73 [facility] Work Phone: DI (VTI) 0.74 m/2 [facility] Work Phone: E wave decelartion time 180.38 msec [facility] Work Phone: e' lateral pk meliton 0.0789 m/s [facility] Work Phone: e' lateral pk meliton 0.08 m/s [facility] Work Phone: e' septal pk meliton 0.0653 m/s [facility] Work Phone: e' septal pk meliton 0.07 m/s [facility] Work Phone: E/A ratio 2.[address] [facility] Work Phone: E/e' lateral ratio 17.[address] [facility] Work Phone: E/e' septal ratio 21.29 [facility] Work Phone: EF SP 2CH [address] [facility] Work Phone: EF SP 4CH [address] [facility] [facility] Work Phone: FS 28 % 28 - 44 % [facility] Work Phone: IVC ostium 2.30 cm [facility] Work Phone: IVS 1.11 cm [facility] Work Phone: LA AREA 2CH 24.36 cm2 [facility] Work Phone: LA area 4CH 20.36 cm2 [facility] Work Phone: LA ESV BP (MOD) 64 mL [facility] Work Phone: LA ESV BP (MOD) index 31 mL/m2 [facility] Work Phone: LA ESV SP 2CH (MOD) 76 mL [facility] Work Phone: LA ESV SP 4CH (MOD) 53 mL [facility] Work Phone: [phone] LV EDV BP 180 [facility] Work Phone: LV EDV SP 2CH 190 mL [facility] Work Phone: [phone] LV EDV SP 4CH 166 [facility] Work Phone: LV ESV BP 69 mL [facility] Work Phone: LV ESV SP 2CH 65 [facility] Work Phone: LV ESV SP 4CH 70 mL [facility] Work Phone: [phone] LV mass 254.73 g [facility] Work Phone: LV Mass Index 122.5 g/m2 [facility] Work Phone: LV RWT 0.42 [facility] Work Phone: LV stroke volume BP (ml) 111 mL [facility] Work Phone: LV stroke volume index BP 53.37 mL/m2 [facility] Work Phone: LVIDD 5.53 cm [facility] Work Phone: LVIDS 3.97 cm [facility] Work Phone: LVOT area 4.15 cm2 [facility] Work Phone: LVOT diameter 2.30 cm [facility] Work Phone: LVOT peak meliton 1.06 m/s [facility] Work Phone: LVOT peak VTI 26.61 cm [facility] Work Phone: LVOT stroke volume 111 cm3 [facility] Work Phone: LVOT stroke volume index 53.13 ml/m2 [facility] Work Phone: Mr max meliton 4.21 m/s [facility] Work Phone: MR VTI 134.50 cm [facility] Work Phone: MV mean gradient 3 [facility] Work Phone: MV peak gradient 11 [facility] Work Phone: MV pk A meliton 0.52 m/s [facility] Work Phone: MV pk E meliton 1.39 m/s [facility] Work Phone: MV stenosis pressure 1/2 time 58.56 ms [facility] Work Phone: MV valve area by continuity eq 2.93 cm2 [facility] Work Phone: MV valve area p 1/2 method 3.76 cm2 [facility] Work Phone: MV VTI 37.70 cm [facility] Work Phone: MVA (continuity VTI) 2.92 cm [facility] Work Phone: OSU AV VTI RATIO PRE STRESS 0.74 [facility] Work Phone: OSU ECHO LV BIPLANE SYSTOLIC VOLUME INDEX 33.17 mL/m2 [facility] Work Phone: OSU ECHO LV BP DIASTOLIC VOLUME INDEX 86.54 mL/m2 [facility] Work Phone: OSU ECHO MR PEAK GRADIENT 70.94 mmHg [facility] Work Phone: PW 1.16 cm [facility] Work Phone: RA area 4CH (MOD) 14.50 cm2 [facility] Work Phone: RA vol index 4CH (MOD) 18.27 mL/m2 [facility] Work Phone: Right atrium volume 4 chamber method of disks 38 mL [facility] Work Phone: RV Area diastolic 33.20 cm2 [facility] Work Phone: RV Area systolic 21.30 cm2 [facility] Work Phone: RV basal diam 4.52 cm [facility] Work Phone: RV Fractional area change 35.8 % [facility] Work Phone: RV long diam 8.96 cm [facility] Work Phone: RV mid diam 3.70 cm [facility] Work Phone: RV S' 22.01 cm/s [facility] Work Phone: RVOT peak gradient 4 mmHg [facility] Work Phone: RVOT peak meliton 0.96 m/s [facility] Work Phone: RVOT peak VTI 20.86 cm [facility] Work Phone: Sinus 3.24 cm [facility] Work Phone: STJ 2.61 cm [facility] Work Phone: Stroke Volume 111 cm/mL [facility] Work Phone: Stroke volume index 53 [facility] Work Phone: TAPSE 2.19 cm [facility] Work Phone: [facility] Work Phone: Cardiac echo study Procedure [...] echocardiography study was performed. Imaging system used: [employer]. Indications Indications for study: shortness of breath. [facility] Radiology Study observation (narrative) [facility] HEPATIC FUNCTION PANELon Albumin [Mass/Vol] 3.5 g/dL 3.5 - 5.0 g/dL [facility] ALP [Catalytic activity/Vol] 70 U/L 32 - 126 U/L [facility] ALT [Catalytic activity/Vol] 8 U/L Low 10 - 52 U/L [facility] AST [Catalytic activity/Vol] 20 U/L 10 - 39 U/L [facility] Bilirubin [Mass/Vol] 1.7 mg/dL High NINF - 1.5 mg/dL [facility] Bilirubin.direct [Mass/Vol] 0.4 mg/dL High NINF - 0.3 mg/dL [facility] Protein [Mass/Vol] 6.0 g/dL Low 6.4 - 8.3 g/dL [facility] Albumin [Mass/Vol] 3.5 g/dL Normal 3.5-5.0 [facility] Comment on above: Performed By: #### M GO, CHM7, HFP, TSHQR ####[facility] (DEFAULT)[address] [place] [address] ALP [Catalytic activity/Vol] 70 U/L Normal 32-126 [facility] Comment on above: Performed By: #### M GO, CHM7, HFP, TSHQR ####[facility] (DEFAULT)[address] [place] [address] ALT [Catalytic activity/Vol] 8 U/L Low 10-52 [facility] Comment on above: Performed By: #### M GO, CHM7, HFP, TSHQR ####[facility] (DEFAULT)[address] [place] [address] AST [Catalytic activity/Vol] 20 U/L Normal 10-39 [facility] Comment on above: Performed By: #### M GO, CHM7, HFP, TSHQR ####[facility] (DEFAULT)[address] [place] [address] Bilirubin [Mass/Vol] 1.7 mg/dL High <1.5 [facility] Comment on above: Performed By: #### M GO, CHM7, HFP, TSHQR ####[facility] (DEFAULT)[address] [place] [address] Bilirubin.indirect [Mass/Vol] 0.4 mg/dL High <0.3 [facility] Comment on above: Performed By: #### M GO, CHM7, HFP, TSHQR ####[facility] (DEFAULT)[address] [place] [address] Protein [Mass/Vol] 6.0 g/dL Low 6.4-8.3 [facility] Comment on above: Performed By: #### M MERLE CHM7, HFP, TSHQR ####[facility] (DEFAULT)[address] [place] [address] MAGNESIUMon 01-18-2024 Magnesium [Mass/Vol] 1.5 mg/dL Low 1.6 - 2 .6 mg/dL [facility] Magnesium [Mass/Vol] 1.5 mg/dL Low 1.6-2.6 [facility] Comment on above: Performed By: #### M MERLE, CHM7, HFP, TSHQR ####[facility] (DEFAULT)[address] [place] [address] No Panel Informationon 01-18 Interpretation and review of laboratory results Abnormal [facility] PT,INR,PTTon 01-18-2024 aPTT Coag (PPP) [Time] 30.0 s [facility] INR Coag (Bld) [Relative time] 1.1 {INR} 0.9 - 1.1 [facility] Interpretation and review of laboratory results Abnormal [facility] PT Coag (PPP) [Time] 14.5 s High [facility] aPTT Coag (Bld) [Time] 30.0 s Normal 24.0-34.3 [facility] Comment on above: Performed By: #### P TPTT ####[facility] (DEFAULT)[address] [place] [address] INR Coag (PPP) [Relative time] 1.1 {INR} Normal 0.9-1.1 [facility] Comment on above: Performed By: #### P TPTT ####[facility] (DEFAULT)[address] [place] [address] PT Coag (PPP) [Time] 14.5 s High 11.9-14.2 [facility] Comment on above: Performed By: #### P TPTT ####[facility] (DEFAULT)[address] [place] [address] TSH W/FT4 REFLEXon 4 Interpretation and review of laboratory results Normal [facility] TSH Qn 2.660 m[IU]/L [facility] TSH 2.660 uIU/mL Normal 0.550-4.780 [facility] Comment on above: Performed By: #### M GO, CHM7, HFP, TSHQR ####[facility] (DEFAULT)[address] [place] [address] AFP TUMOR MARKERon 4 AFP Tumor Marker <2.2 Normal <8.1 [facility] Comment on above: Result Comment: This test was performed on the Beta Dash Immunoassay platform by [employer] which is a two-site sandwich chemiluminescent immunoassay. It is important to note that assays using different manufacturers and/or methods may not be comparable. Performed By: #### A FPTMR ####[facility] (DEFAULT)[address] [place] [address] DARYL AURIS SCREEN BY PCRO rdered By: Mynor Alejandro on 01-17-2024 Daryl auris Screen by PCR Not detected Not Detected [facility] Interpretation and review of laboratory results Normal [facility] This test was perfor med using a real-time PCR assay. This test was developed, and its performance characteristics determined by [facility] at [facility]. It has not been cleared or approved by the FDA. The laboratory is regulated under CLIA as qualified to perform high-complexity testing. This test is used for clinical purposes. It should not be regarded as investigational or for research. [facility] CBC,PLATELETSon 01-17-2024 Erythrocyte distribution width (RBC) [Ratio] 14.0 % 10.9 - 14.3 % [facility] Hematocrit (Bld) [Volume fraction] 37.2 % Low 39.6 - 48.8 % [facility] Hemoglobin (Bld) [Mass/Vol] 12.0 g/dL Low 13.4 - 16.8 g/dL [facility] Interpretation and review of laboratory results Abnormal [facility] MCH (RBC) [Entitic mass] 27.9 pg 26.1 - 33.3 pg [facility] MCHC (RBC) [Mass/Vol] 32.3 g/dL 31.9 - 36.5 g/dL [facility] MCV (RBC) [Entitic vol] 86.5 fL 79.0 - 94.5 fL [facility] Platelet mean volume (Bld) [Entitic vol] 10.5 fL 8.7 - 12.3 fL [facility] Platelets (Bld) [#/Vol] 159 10*3/uL 146 - 337 K/uL [facility] RBC (Bld) [#/Vol] 4.30 10*6/uL Low [facility] WBC (Bld) [#/Vol] 3.69 10*3/uL Low 3.73 - 10. 10 K/uL [facility] Hematocrit (Bld) [Volume fraction] 37.2 % Low 39.6-48.8 [facility] Comment on above: Performed By: #### [facility] ####[facility] (DEFAULT)[address] [place] [address] Hemoglobin (Bld) [Mass/Vol] 12.0 g/dL Low 13.4-16.8 [facility] Comment on above: Performed By: #### [facility] ####[facility] (DEFAULT)[address] [place] [address] MCV (RBC) [Entitic vol] 86.5 fL Normal 79.0-94.5 [facility] Comment on above: Performed By: #### [facility] ####[facility] (DEFAULT)[address] [place] [address] Mean Cell Hgb 27.9 pg Normal 26.1-33.3 [facility] Comment on above: Performed By: #### H EMOGC ####[facility] (DEFAULT)[address] [place] [address] Mean Cell Hgb Conc 32.3 g/dL Normal 31.9-36.5 [facility] Comment on above: Performed By: #### H EMOGC ####[facility] (DEFAULT)[address] [place] [address] Platelet mean volume (Bld) [Entitic vol] 10.5 fL Normal 8.7-12.3 [facility] Comment on above: Performed By: #### H EMOGC ####[facility] (DEFAULT)[address] [place] [address] Platelets (Bld) [#/Vol] 159 10*3/uL Normal 146-337 [facility] Comment on above: Performed By: #### H EMOGC ####[facility] (DEFAULT)[address] [place] [address] RBC (Bld) [#/Vol] 4.30 10*6/uL Low 4.38-5.83 [facility] Comment on above: Performed By: #### H EMOGC ####[facility] (DEFAULT)[address] [place] [address] RBC Distribution 14.0 % Normal 10.9-14.3 [facility] Comment on above: Performed By: #### H EMOGC ####[facility] (DEFAULT)[address] [place] [address] WBC (Bld) [#/Vol] 3.69 10*3/uL Low 3.73-10.10 [facility] Comment on above: Performed By: #### H EMOGC ####[facility] (DEFAULT)[address] [place] [address] CHEM 7 (LYTES,BUN,CREA,GLUC) on 01-17-2024 Anion gap [Moles/Vol] 13 mmol/L 7 - 17 mmol/L [facility] Chloride [Moles/Vol] 109 mmol/L High 98 - 10 8 mmol/L [facility] CO2 [Moles/Vol] 21 mmol/L 21 - 31 mmol/L [facility] Creatinine [Mass/Vol] 1.04 mg/dL 0.70 - 1.30 mg/dL [facility] eGFR, CKD-EPI, Male 86 - PINF [facility] Comment on above: Reported eGFR is bas ed on the CKD-EPI 2020 equation using creatinine, age, and sex. Glucose [Mass/Vol] 82 mg/dL 70 - 99 mg/dL [facility] Osmolality Calc [Osmolality] 292 [facility] Potassium [Moles/Vol] 4.4 mmol/L 3.5 - 5.0 mmol/L [facility] Sodium [Moles/Vol] 139 mmol/L 135 - 145 mmol/L [facility] Urea nitrogen [Mass/Vol] 17 mg/dL 7 - 25 mg/dL [facility] Urea nitrogen/Creatinine [Mass ratio] 16 mg/mg [facility] Anion gap [Moles/Vol] 13 mmol/L Normal 7-17 [facility] Comment on above: Performed By: #### C HM7, HFP, MGO ####[facility] (DEFAULT)[address] [place] [address] Chloride [Moles/Vol] 109 mmol/L High 98-108 [facility] Comment on above: Performed By: #### C HM7, HFP, MGO ####[facility] (DEFAULT)[address] [place] [address] CO2 [Moles/Vol] 21 mmol/L Normal 21-31 [facility] Comment on above: Performed By: #### C HM7, HFP, MGO ####[facility] (DEFAULT)[address] [place] [address] Creatinine [Mass/Vol] 1.04 mg/dL Normal 0.70-1.30 [facility] Comment on above: Performed By: #### C HM7, HFP, MGO ####[facility] (DEFAULT)[address] [place] [address] GFR/1.73 sq M.predicted among non-blacks MDRD (S/P/Bld) [Vol rate/Area] 86 mL/min/{1.73_m2} Normal >=60 [facility] Comment on above: Result Comment: Repo rted eGFR is based on the CKD-EPI 2020 equation using creatinine, age, and sex. Performed By: #### C HM7, HFP, MGO ####[facility] (DEFAULT)[address] [place] [address] Glucose [Mass/Vol] 82 mg/dL Normal 70-99 [facility] Comment on above: Performed By: #### C HM7, HFP, MGO ####[facility] (DEFAULT)[address] [place] [address] Osmolality [Osmolality] 292 mosm/kg Normal 278-305 [facility] Comment on above: Performed By: #### C HM7, HFP, MGO ####[facility] (DEFAULT)[address] [place] [address] Potassium [Moles/Vol] 4.4 mmol/L Normal 3.5-5.0 [facility] Comment on above: Performed By: #### C HM7, HFP, MGO ####[facility] (DEFAULT)[address] [place] [address] Sodium [Moles/Vol] 139 mmol/L Normal 135-145 [facility] Comment on above: Performed By: #### C HM7, HFP, MGO ####[facility] (DEFAULT)[address] [facility] [place] [address] Urea nitrogen [Mass/Vol] 17 mg/dL Normal 7-25 [facility] Comment on above: Performed By: #### C JASMYNE, TAVO, MGO ####[facility] (DEFAULT)[address] [place] [address] Urea nitrogen/Creatinine [Mass ratio] 16 mg/mg Normal [facility] Comment on above: Performed By: #### C JASMYNE, TAVO, MGO ####[facility] (DEFAULT)[address] [place] [address] CT ABDOMEN/PELVIS WITHOUT CO NTRASTon 01-17-2024 CT ABDOMEN/PELVIS WITHOUT CONTRAST Normal [facility] CT Abdomen and Pelvis WO [...] unremarkable. 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 Right lower quadrant [...] unremarkable. 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 Right lower quadrant [...] the middle lobe. Trace left pleural effusion. [facility] Radiology Study observation (narrative) [facility] HEPATIC FUNCTION PANELon Albumin [Mass/Vol] 3.5 g/dL 3.5 - 5.0 g/dL [facility] ALP [Catalytic activity/Vol] 73 U/L 32 - 126 U/L [facility] [facility] ALT [Catalytic activity/Vol] 7 U/L Low 10 - 52 U/L [facility] AST [Catalytic activity/Vol] 25 U/L 10 - 39 U/L [facility] Bilirubin [Mass/Vol] 1.8 mg/dL High NINF - 1.5 mg/dL [facility] Bilirubin.direct [Mass/Vol] 0.3 mg/dL High NINF - 0.3 mg/dL [facility] Protein [Mass/Vol] 6.0 g/dL Low 6.4 - 8.3 g/dL [facility] Albumin [Mass/Vol] 3.5 g/dL Normal 3.5-5.0 [facility] Comment on above: Performed By: #### C HM7, HFP, MGO ####[facility] (DEFAULT)[address] [place] [address] ALP [Catalytic activity/Vol] 73 U/L Normal 32-126 [facility] Comment on above: Performed By: #### C HM7, HFP, MGO ####[facility] (DEFAULT)[address] [place] [address] ALT [Catalytic activity/Vol] 7 U/L Low 10-52 [facility] Comment on above: Performed By: #### C HM7, HFP, MGO ####[facility] (DEFAULT)[address] [place] [address] AST [Catalytic activity/Vol] 25 U/L Normal 10-39 [facility] Comment on above: Performed By: #### C HM7, HFP, MGO ####[facility] (DEFAULT)[address] [place] [address] Bilirubin [Mass/Vol] 1.8 mg/dL High <1.5 [facility] Comment on above: Performed By: #### C HM7, HFP, MGO ####[facility] (DEFAULT)[address] [place] [address] Bilirubin.indirect [Mass/Vol] 0.3 mg/dL High <0.3 [facility] Comment on above: Performed By: #### C HM7, TAVO, MGO ####[facility] (DEFAULT)[address] [place] [address] Protein [Mass/Vol] 6.0 g/dL Low 6.4-8.3 [facility] Comment on above: Performed By: #### C HM7, TAVO, MGO ####[facility] (DEFAULT)[address] [place] [address] HISTOPLASMA AND BLASTOMYCES ANTIGEN, ENZYME IMMUNOASSAY, SERMon 01-17-2024 Histoplasma/Blastomy antonia Ag Result Not detected Normal Not Detected [facility] Comment on above: Result Comment: No a ntigen from Histoplasma or Blastomyces detected. Falsenegative results may occur depending on extent of disease,and/or site of infection. Repeat testing on a new specimenif clinically indicated. Performed By: #### H CORAL ####[facility] (DEFAULT)[address] [place] [address] Histoplasma/Blastomy antonia Ag Value Not detected Normal [facility] Comment on above: Result Comment: ---- ADDITIONAL INFORMATION This test was developed and its performance characteristicsdetermined by [facility] in a manner consistent with CLIArequirements. This test has not been cleared or approved bythe U.S. Food and Drug Administration.Test Performed by:[facility] [place] [id number] Director: Rosendo Bose M.D. Ph.D.; CLIA# [id number] Performed By: #### H ILYAG ####[facility] (DEFAULT)[address] [place] [address] MAGNESIUMon 01-17-2024 Interpretation and review of laboratory results Normal [facility] Magnesium [Mass/Vol] 1.7 mg/dL 1.6 - 2 .6 mg/dL [facility] Magnesium [Mass/Vol] 1.7 mg/dL Normal 1.6-2.6 [facility] Comment on above: Performed By: #### C HM7, HFP, MGO ####[facility] (DEFAULT)[address] [place] [id number] No Panel Informationon 01-17 Interpretation and review of laboratory results Abnormal [facility] PT,INR,PTTon 01-17-2024 aPTT Coag (PPP) [Time] 29.9 s [facility] INR Coag (Bld) [Relative time] 1.1 {INR} 0.9 - 1.1 [facility] Interpretation and review of laboratory results Abnormal [facility] PT Coag (PPP) [Time] 14.5 s [place] [facility] aPTT Coag (Bld) [Time] 29.9 s Normal 24.0-34.3 [facility] Comment on above: Performed By: #### P TPTT ####[facility] (DEFAULT)[address] [place] [address] INR Coag (PPP) [Relative time] 1.1 {INR} Normal 0.9-1.1 [facility] Comment on above: Performed By: #### P TPTT ####[facility] (DEFAULT)[address] [place] [address] PT Coag (PPP) [Time] 14.5 s High 11.9-14.2 [facility] Comment on above: Performed By: #### P TPTT ####[facility] (DEFAULT)[address] [place] [address] B-TYPE NATRIURETIC PEPTIDE ( BRAIN)on 01-16-2024 Interpretation and review of laboratory results Abnormal [facility] Natriuretic peptide B (Bld) [Mass/Vol] 212 pg/mL High 0 - 100 pg/mL [facility] Natriuretic peptide B (Bld) [Mass/Vol] 212 pg/mL High 0-100 [facility] Comment on above: Performed By: #### B ANILINE PRESS WORKER ####[facility] (DEFAULT)[address] [place] [address] CALCIUMon 01-16-2024 Calcium [Mass/Vol] 8.5 mg/dL Low 8.6 - 10. 5 mg/dL [facility] Calcium [Mass/Vol] 8.5 mg/dL Low 8.6-10.5 [facility] Comment on above: Performed By: #### C A, IPB, MGO, CHM7, HFP ####[facility] (DEFAULT)[address] [place] [address] DARYL AURIS SCREEN BY PCRo n 01-16-2024 Daryl auris Screen by PCR Not detected Normal Not Detected [facility] Comment on above: Order Comment: This test was performed using a real-time PCR assay. This test was developed, and its performance characteristics determined by [facility] at [facility]. It has not been cleared or approved by the FDA. The laboratory is regulated under CLIA as qualified to perform high-complexity testing. This test is used for clinical purposes. It should not be regarded as investigational or for research. Performed By: #### C ANDIDA AURIS SCREEN BY PCR ####[facility] (DEFAULT)[address] [place] [address] CBC AND ELECTRONIC DIFFon Basophils (Bld) [#/Vol] K/uL 0.00 - 0.09 K/uL [facility] Basophils/100 WBC (Bld) 0.6 % [facility] Differential cell count method Nom (Bld) Electronic Differential [facility] Eosinophils (Bld) [#/Vol] 0.09 10*3/uL 0.00 - 0.48 K/uL [facility] Eosinophils/100 WBC (Bld) 2.5 % [facility] Erythrocyte distribution width (RBC) [Ratio] 14.0 % 10.9 - 14.3 % [facility] Hematocrit (Bld) [Volume fraction] 37.4 % Low 39.6 - 48.8 % [facility] Hemoglobin (Bld) [Mass/Vol] 12.1 g/dL Low 13.4 - 16.8 g/dL [facility] Immature granulocytes (Bld) [#/Vol] K/uL NINF - 0.07 K/uL [facility] Immature granulocytes/100 WBC (Bld) 0.3 % [facility] Interpretation and review of laboratory results Abnormal [facility] Lymphocytes (Bld) [#/Vol] 1.16 10*3/uL 0.83 - 3.57 K/uL [facility] Lymphocytes/100 WBC (Bld) 32.0 % [facility] MCH (RBC) [Entitic mass] 28.4 pg 26.1 - 33.3 pg [facility] MCHC (RBC) [Mass/Vol] 32.4 g/dL 31.9 - 36.5 g/dL [facility] MCV (RBC) [Entitic vol] 87.8 fL 79.0 - 94.5 fL [facility] Monocytes (Bld) [#/Vol] 0.43 10*3/uL 0.24 - 0.93 K/uL [facility] Monocytes/100 WBC (Bld) 11.9 % [facility] Neutrophils (Bld) [#/Vol] 1.91 10*3/uL 1.57 - 6.19 K/uL [facility] Nucleated RBC/100 WBC (Bld) [Ratio] 0.0 % [facility] Platelet mean volume (Bld) [Entitic vol] 10.1 fL 8.7 - 12.3 fL [facility] Platelets (Bld) [#/Vol] 155 10*3/uL 146 - 337 K/uL [facility] RBC (Bld) [#/Vol] 4.26 10*6/uL Low [facility] Segmented neutrophils/100 WBC (Bld) 52.7 % [facility] WBC (Bld) [#/Vol] 3.62 10*3/uL Low 3.73 - 10. 10 K/uL [facility] Abs Baso Auto < Normal 0.00-0.09 [facility] Comment on above: Performed By: #### L [id number] ####[facility] (DEFAULT)[address] [place] [address] Basophils/100 WBC (Bld) 0.6 % Normal [facility] Comment on above: Performed By: #### L AB980 ####[facility] (DEFAULT)[address] [place] [address] DIFF STATUS Electronic Differential Normal [facility] Comment on above: Performed By: #### L AB980 ####[facility] (DEFAULT)[address] [place] [address] Eosinophils (Bld) [#/Vol] 0.09 10*3/uL Normal 0.00-0.48 [facility] Comment on above: Performed By: #### L AB980 ####[facility] (DEFAULT)[address] [facility] [place] [address] Eosinophils/100 WBC (Bld) 2.5 % Normal [facility] Comment on above: Performed By: #### L AB980 ####[facility] (DEFAULT)[address] [place] [address] Hematocrit (Bld) [Volume fraction] 37.4 % Low 39.6-48.8 [facility] Comment on above: Performed By: #### L AB980 ####[facility] (DEFAULT)[address] [place] [address] Hemoglobin (Bld) [Mass/Vol] 12.1 g/dL Low 13.4-16.8 [facility] Comment on above: Performed By: #### L AB980 ####[facility] (DEFAULT)[address] [place] [address] Immature Grans % 0.3 % Normal [facility] Comment on above: Performed By: #### L AB980 ####[facility] (DEFAULT)[address] [place] [address] Immature Grans Absolute < Normal <=0.07 [facility] Comment on above: Performed By: #### L AB980 ####[facility] (DEFAULT)[address] [place] [address] Lymphocytes (Bld) [#/Vol] 1.16 10*3/uL Normal 0.83-3.57 [facility] Comment on above: Performed By: #### L AB980 ####[facility] (DEFAULT)[address] [facility] [place] [address] Lymphocytes/100 WBC (Bld) 32.0 % Normal [facility] Comment on above: Performed By: #### L AB980 ####[facility] (DEFAULT)[address] [place] [address] MCV (RBC) [Entitic vol] 87.8 fL Normal 79.0-94.5 [facility] Comment on above: Performed By: #### L AB980 ####[facility] (DEFAULT)[address] [place] [address] Mean Cell Hgb 28.4 pg Normal 26.1-33.3 [facility] Comment on above: Performed By: #### L AB980 ####[facility] (DEFAULT)[address] [place] [address] Mean Cell Hgb Conc 32.4 g/dL Normal 31.9-36.5 [facility] Comment on above: Performed By: #### L AB980 ####[facility] (DEFAULT)[address] [place] [address] Monocytes (Bld) [#/Vol] 0.43 10*3/uL Normal 0.24-0.93 [facility] Comment on above: Performed By: #### L AB980 ####[facility] (DEFAULT)[address] [place] [address] Monocytes/100 WBC (Bld) 11.9 % Normal [facility] Comment on above: Performed By: #### L AB980 ####[facility] (DEFAULT)[address] [place] [address] Nucleated RBC 0.0 /100 WBC Normal <=0.2 [facility] Comment on above: Performed By: #### L AB980 ####[facility] (DEFAULT)[address] [place] [address] Platelet mean volume (Bld) [Entitic vol] 10.1 fL Normal 8.7-12.3 [facility] Comment on above: Performed By: #### L AB980 ####[facility] (DEFAULT)[address] [place] [address] Platelets (Bld) [#/Vol] 155 10*3/uL Normal 146-337 [facility] Comment on above: Performed By: #### L AB980 ####[facility] (DEFAULT)[address] [place] [address] RBC (Bld) [#/Vol] 4.26 10*6/uL Low 4.38-5.83 [facility] Comment on above: Performed By: #### L AB980 ####[facility] (DEFAULT)[address] [place] [address] RBC Distribution 14.0 % Normal 10.9-14.3 [facility] Comment on above: Performed By: #### L AB980 ####[facility] (DEFAULT)[address] [place] [address] Segs + Bands Auto 52.7 % Normal [facility] Comment on above: Performed By: #### L AB980 ####[facility] (DEFAULT)[address] [place] [address] Segs + Bands,Absolute Auto 1.91 K/uL Normal 1.57-6.19 [facility] Comment on above: Performed By: #### L AB980 ####[facility] (DEFAULT)[address] [place] [address] WBC (Bld) [#/Vol] 3.62 10*3/uL Low 3.73-10.10 [facility] Comment on above: Performed By: #### L AB980 ####[facility] (DEFAULT)[address] [place] [address] CHEM 7 (LYTES,BUN,CREA,GLUC) on 01-16-2024 Anion gap [Moles/Vol] 11 mmol/L 7 - 17 mmol/L [facility] Chloride [Moles/Vol] 108 mmol/L 98 - 10 8 mmol/L [facility] CO2 [Moles/Vol] 24 mmol/L 21 - 31 mmol/L [facility] Creatinine [Mass/Vol] 1.04 mg/dL 0.70 - 1.30 mg/dL [facility] eGFR, CKD-EPI, Male 86 - PINF [facility] Comment on above: Reported eGFR is bas ed on the CKD-EPI 2020 equation using creatinine, age, and sex. Glucose [Mass/Vol] 95 mg/dL 70 - 99 mg/dL [facility] Osmolality Calc [Osmolality] 293 [facility] Potassium [Moles/Vol] 4.0 mmol/L 3.5 - 5.0 mmol/L [facility] Sodium [Moles/Vol] 139 mmol/L 135 - 145 mmol/L [facility] Urea nitrogen [Mass/Vol] 19 mg/dL 7 - 25 mg/dL [facility] Urea nitrogen/Creatinine [Mass ratio] 18 mg/mg [facility] Anion gap [Moles/Vol] 11 mmol/L Normal - [facility] Comment on above: Performed By: #### C A, IPB, MGO, CHM7, HFP ####[facility] (DEFAULT)[address] [place] [address] Chloride [Moles/Vol] 108 mmol/L Normal 98-108 [facility] Comment on above: Performed By: #### C A, IPB, MGO, CHM7, HFP ####[facility] (DEFAULT)[address] [place] [address] CO2 [Moles/Vol] 24 mmol/L Normal 21-31 [facility] Comment on above: Performed By: #### C A, IPB, MGO, CHM7, HFP ####[facility] (DEFAULT)[address] [place] [address] Creatinine [Mass/Vol] 1.04 mg/dL Normal 0.70-1.30 [facility] Comment on above: Performed By: #### C A, IPB, MGO, CHM7, HFP ####[facility] (DEFAULT)[address] [place] [address] GFR/1.73 sq M.predicted among non-blacks MDRD (S/P/Bld) [Vol rate/Area] 86 mL/min/{1.73_m2} Normal >=60 [facility] Comment on above: Result Comment: Repo rted eGFR is based on the CKD-EPI 2020 equation using creatinine, age, and sex. Performed By: #### C A, IPB, MGO, CHM7, HFP ####[facility] (DEFAULT)[address] [place] [address] Glucose [Mass/Vol] 95 mg/dL Normal 70-99 [facility] Comment on above: Performed By: #### C A, IPB, MGO, CHM7, HFP ####[facility] (DEFAULT)[address] [place] [address] Osmolality [Osmolality] 293 mosm/kg Normal 278-305 [facility] Comment on above: Performed By: #### C A, IPB, MGO, CHM7, HFP ####[facility] (DEFAULT)[address] [place] [address] Potassium [Moles/Vol] 4.0 mmol/L Normal 3.5-5.0 [facility] Comment on above: Performed By: #### C A, IPB, MGO, CHM7, HFP ####[facility] (DEFAULT)[address] [place] [address] Sodium [Moles/Vol] 139 mmol/L Normal 135-145 [facility] Comment on above: Performed By: #### C A, IPB, MGO, CHM7, HFP ####[facility] (DEFAULT)[address] [place] [address] Urea nitrogen [Mass/Vol] 19 mg/dL Normal 7-25 [facility] Comment on above: Performed By: #### C A, IPB, MGO, CHM7, HFP ####[facility] (DEFAULT)[address] [facility] [place] [address] Urea nitrogen/Creatinine [Mass ratio] 18 mg/mg Normal [facility] Comment on above: Performed By: #### C A, IPB, MGO, CHM7, HFP ####[facility] (DEFAULT)[address] [facility] [place] [address] D-DIMER,QUANTITATIVEOrdered By: Shaji Kelly on 01-16-2024 Fibrin D-dimer FEU (PPP) [Mass/Vol] 0.67 [facility] Comment on above: The D-Dimer assay is intended for use in conjuction with a clinical pretest probability (PTP) assessment model to exclude pulmonary embolism (PE) and as an aid in the diagnosis of Deep Vein Thrombosis (DVT) in outpatients suspected of PE or DVT. For the assay in use at [facility] ([facility]), a cutoff of <0.50 mcg/mL has a Negative Predictive Value of 99.7% for exclusion of DVT in low and moderate PTP patients. Interpretation and review of laboratory results Abnormal [facility] D-DIMER,QUANTITATIVEon 01-16 D-Dimer, High Sensitivity 0.67 mcg/mL FEU High <0.50 [facility] Comment on above: Result Comment: The D-Dimer assay is intended for use in conjuction with a clinical pretest probability (PTP) assessment model to exclude pulmonary embolism (PE) and as an aid in the diagnosis of Deep Vein Thrombosis (DVT) in outpatients suspected of PE or DVT. For the assay in use at [facility] ([facility]), a cutoff of <0.50 mcg/mL has a Negative Predictive Value of 99.7% for exclusion of DVT in low and moderate PTP patients. Performed By: #### P TPTT, HSDDI ####[facility] (DEFAULT)[address] [place] [address] HEPATIC FUNCTION PANELon Albumin [Mass/Vol] 3.7 g/dL 3.5 - 5.0 g/dL [facility] ALP [Catalytic activity/Vol] 70 U/L 32 - 126 U/L [facility] ALT [Catalytic activity/Vol] 8 U/L Low 10 - 52 U/L [facility] AST [Catalytic activity/Vol] 21 U/L 10 - 39 U/L [facility] Bilirubin [Mass/Vol] 1.9 mg/dL High NINF - 1.5 mg/dL [facility] Bilirubin.direct [Mass/Vol] 0.4 mg/dL High NINF - 0.3 mg/dL [facility] Protein [Mass/Vol] 6.1 g/dL Low 6.4 - 8.3 g/dL [facility] Albumin [Mass/Vol] 3.7 g/dL Normal 3.5-5.0 [facility] Comment on above: Performed By: #### C A, IPB, MGO, CHM7, HFP ####[facility] (DEFAULT)[address] [place] [address] ALP [Catalytic activity/Vol] 70 U/L Normal 32-126 [facility] Comment on above: Performed By: #### C A, IPB, MGO, CHM7, HFP ####[facility] (DEFAULT)[address] [place] [address] ALT [Catalytic activity/Vol] 8 U/L Low 10-52 [facility] Comment on above: Performed By: #### C A, IPB, MGO, CHM7, HFP ####[facility] (DEFAULT)[address] [place] [address] AST [Catalytic activity/Vol] 21 U/L Normal 10-39 [facility] Comment on above: Performed By: #### C A, IPB, MGO, CHM7, HFP ####[facility] (DEFAULT)[address] [place] [address] Bilirubin [Mass/Vol] 1.9 mg/dL High <1.5 [facility] Comment on above: Performed By: #### C A, IPB, MGO, CHM7, HFP ####[facility] (DEFAULT)[address] [place] [address] Bilirubin.indirect [Mass/Vol] 0.4 mg/dL High <0.3 [facility] Comment on above: Performed By: #### C A, IPB, MGO, CHM7, HFP ####[facility] (DEFAULT)[address] [place] [address] Protein [Mass/Vol] 6.1 g/dL Low 6.4-8.3 [facility] Comment on above: Performed By: #### C A, IPB, MGO, CHM7, HFP ####[facility] (DEFAULT)[address] [place] [address] MAGNESIUMon 01-16-2024 Magnesium [Mass/Vol] 1.7 mg/dL 1.6 - 2 .6 mg/dL [facility] Magnesium [Mass/Vol] 1.7 mg/dL Normal 1.6-2.6 [facility] Comment on above: Performed By: #### JO ANN Willis MGO, HELENM7, HFP ####[facility] (DEFAULT)[address] [place] [id number] No Panel Informationon 01-16 Interpretation and review of laboratory results Abnormal [facility] Interpretation and review of laboratory results Normal [facility] PHOSPHATE, INORGANICon 01-16 Phosphate [Mass/Vol] 4.1 mg/dL 2.2 - 4 .6 mg/dL [facility] Phosphorous 4.1 mg/dL Normal 2.2-4.6 [facility] Comment on above: Performed By: #### JO ANN Willis, DOMENICA, CHM7, HFP ####[facility] (DEFAULT)[address] [place] [address] PT,INR,PTTon 01-16-2024 aPTT Coag (PPP) [Time] 29.6 s [facility] INR Coag (Bld) [Relative time] 1.2 {INR} High 0.9 - 1.1 [facility] Interpretation and review of laboratory results Abnormal [facility] PT Coag (PPP) [Time] 14.9 s High [facility] aPTT Coag (Bld) [Time] 29.6 s Normal 24.0-34.3 [facility] Comment on above: Performed By: #### P TPTT, HSDDI ####[facility] (DEFAULT)[address] [place] [address] INR Coag (PPP) [Relative time] 1.2 {INR} High 0.9-1.1 [facility] Comment on above: Performed By: #### P TPTT, HSDDI ####[facility] (DEFAULT)[address] [place] [address] PT Coag (PPP) [Time] 14.9 s High 11.9-14.2 [facility] Comment on above: Performed By: #### P TPTT, HSDDI ####[facility] (DEFAULT)[address] [place] [address] TACROLIMUS LEVEL, TROUGH (MS E DRUG LEVEL)Ordered By: Jimy Castillo on 01-16-2024 Interpretation and review of laboratory results Normal [facility] Tacrolimus (Bld) [Mass/Vol] 5.7 ng/mL Bone Marrow Transplant: 4.0-12.0, Therapeutic: 5.0-15.0 [facility] Method performed is a chemiluminescent microparticle immunoasssay on the [employer] i2000. The range is based on experience at [facility] and users should be aware that target concentrations vary widely depending on concomitant therapy, time post-transplant, and desired degree of immunosuppression. [facility] TACROLIMUS LEVEL, TROUGH (MS E DRUG LEVEL)on 01-16-2024 Tacrolimus, Trough 5.7 ng/mL Normal Bone Susana ow Transplant: 4.0-12.0, Therapeutic: 5.0-15.0 [facility] Comment on above: Order Comment: Pleas e draw at specified interval PRIOR to dose. Do not hold dose to wait for level. Specimens batched twice per day, (M-F) and once per day weekendsMethod performed is a chemiluminescent microparticle immunoasssay on the [employer] i2000.The range is based on experience at [facility] and users should be aware that target concentrations vary widely depending on concomitant therapy, time post-transplant, and desired degree of immunosuppression. Performed By: #### T ACRO ####[facility] (DEFAULT)[address] [place] [id number] US ABDOMEN LIVER DOPPLERon 0 01-16-2024 US ABDOMEN LIVER DOPPLER Normal [facility] US.doppler Abdominal vessels on 01-16-2024 [...] pleural effusion. Trace right upper quadrant ascites. [facility] Radiology [facility]narrative) [facility] Ordered By: Iona Duran on 01-16-2024 [facility] Work Phone: XR CHEST PA AND LATERAL 2 EWSon 01-16-2024 XR CHEST PA AND LATERAL 2 VIEWS Normal [facility] XR Chest PA and Lateralon [...] Normal IMPRESSION IMPRESSION: Moderate right pleural effusion. [facility] Radiology Study observation (narrative) [facility] XR Chest PA and LateralOrder ed By: Daisha Patterson on 01-16-2024 [facility] Work Phone: ALL CBC WITH AUTO DIFFon BASOPHILS ABSOLUTE AUTO 0.0 [facility] Basophils/100 WBC (Bld) 0.5 % 0.2 - 2.0 % [facility] Eosinophils/100 WBC (Bld) 2.8 [...] vol] 88.6 fL 80.0 - 94.0 fL [facility] MONOCYTES ABSOLUTE [facility] 0.5 [facility] Monocytes/100 WBC (Bld) 11.9 % 1.7 - 12.0 % [facility] NEUTROPHILS ABSOLUTE AUTO 1.9 [facility] Neutrophils/100 WBC (Bld) 47.0 % 43.0 - 75.0 % [facility] Platelet mean volume (Bld) [Entitic vol] 10.3 fL 9.5 - 13.5 [facility]L [facility] PLT 180 [facility] RBC 4.93 [facility] WBC 4.0 [facility] [...] vol] 9.8 fL 9.5 - 13.5 fL [facility] EO # 0.1 [facility] PLT 180 [facility] RBC 5.01 [facility] WBC 3.9 Low [facility] CHEM 7 (LYTES,BUN,CREA,GLUC) on 09-11-2023 Anion gap [Moles/Vol] 13 mmol/L 7 - 17 mmol/L [facility] Chloride [Moles/Vol] 111 mmol/L High 98 - 10 8 mmol/L [facility] CO2 [Moles/Vol] 20 mmol/L Low 21 - 31 mmol/L [facility] Creatinine [Mass/Vol] 1.13 mg/dL 0.70 - 1.30 mg/dL [facility] eGFR, CKD-EPI, Male 78 - PINF [facility] Glucose [Mass/Vol] 109 mg/dL High 70 - 99 mg/dL [facility] Interpretation and review of laboratory results Abnormal [facility] Osmolality Calc [Osmolality] 295 [facility] Potassium [Moles/Vol] 4.3 mmol/L 3.5 - 5.0 mmol/L [facility] Sodium [Moles/Vol] 140 mmol/L 135 - 145 mmol/L [facility] Urea nitrogen [Mass/Vol] 16 mg/dL 7 - 25 mg/dL [facility] Urea nitrogen/Creatinine [Mass ratio] 14 mg/mg [facility] Anion gap [Moles/Vol] 13 mmol/L Normal 7-17 [facility] Comment on above: Performed By: #### NATHANIEL RAMÍREZ ####[facility] (DEFAULT)[address] [place] [address] Chloride [Moles/Vol] 111 mmol/L High 98-108 [facility] Comment on above: Performed By: #### NATHANIEL RAMÍREZ ####[facility] (DEFAULT)[address] [place] [address] CO2 [Moles/Vol] 20 mmol/L Low 21-31 [facility] Comment on above: Performed By: #### NATHANIEL RAMÍREZ ####[facility] (DEFAULT)[address] [place] [address] Creatinine [Mass/Vol] 1.13 mg/dL Normal 0.70-1.30 [facility] Comment on above: Performed By: #### Rod BLOOM CHM7 ####[facility] (DEFAULT)[address] [place] [address] GFR/1.73 sq M.predicted among non-blacks MDRD (S/P/Bld) [Vol rate/Area] 78 mL/min/{1.73_m2} Normal >=60 [facility] Comment on above: Result Comment: Repo rted eGFR is based on the CKD-EPI 2020 equation using creatinine, age, and sex. Performed By: #### TJ RAMÍREZ7 ####[facility] (DEFAULT)[address] [place] [address] Glucose [Mass/Vol] 109 mg/dL High 70-99 [facility] Comment on above: Performed By: #### Rod BLOOM CHM7 ####[facility] (DEFAULT)[address] [place] [address] Osmolality [Osmolality] 295 mosm/kg Normal 278-305 [facility] Comment on above: Performed By: #### Rod BLOOM CHM7 ####[facility] (DEFAULT)[address] [place] [address] Potassium [Moles/Vol] 4.3 mmol/L Normal 3.5-5.0 [facility] Comment on above: Performed By: #### Rod BLOOM CHM7 ####[facility] (DEFAULT)[address] [place] [address] Sodium [Moles/Vol] 140 mmol/L Normal 135-145 [facility] Comment on above: Performed By: #### Rod BLOOM CHM7 ####[facility] (DEFAULT)[address] [place] [address] Urea nitrogen [Mass/Vol] 16 mg/dL Normal 7-25 [facility] Comment on above: Performed By: #### Rod BLOOM CHM7 ####[facility] (DEFAULT)[address] [place] [address], [place] [address] Urea nitrogen/Creatinine [Mass ratio] 14 mg/mg Normal [facility] Comment on above: Performed By: #### NATHANIEL RAMÍREZ ####[facility] (DEFAULT)[address] [place] [address] GLUCOSE POCon 09-11-2023 Glucose [Mass/Vol] 108 mg/dL High 70 - 99 mg/dL [facility] Interpretation and review of laboratory results Abnormal [facility] POC Sample Type CAPBL [facility] Legionella sp identified Org specific cx Nom (Unsp spec)on 09-11-2023 Bacteria identified Cx Nom (Unsp spec) NO GROWTH DAY 7 OF 7 [facility] MAGNESIUMon 09-11-2023 Interpretation and review of laboratory results Normal [facility] Magnesium [Mass/Vol] 1.6 mg/dL 1.6 - 2 .6 mg/dL [facility] Magnesium [Mass/Vol] 1.6 mg/dL Normal 1.6-2.6 [facility] Comment on above: Performed By: #### NATHANIEL RAMÍREZ ####[facility] (DEFAULT)[address] [place] [id number] No Panel Informationon 09-11 [facility] TACROLIMUS LEVEL, TROUGH (MS E DRUG LEVEL)on 09-11-2023 Interpretation and review of laboratory results Normal [facility] Tacrolimus (Bld) [Mass/Vol] 11.5 ng/mL [facility] Tacrolimus, Trough 11.5 ng/mL Normal [facility] Susana ow Transplant: 4.0-12.0, Therapeutic: 5.0-15.0 [facility] Comment on above: Order Comment: Pleas e draw at specified interval PRIOR to dose. Do not hold dose to wait for level. Specimens batched twice per day, (M-F) and once per day weekendsMethod performed is a chemiluminescent microparticle immunoasssay on the [employer] i2000.The range is based on experience at [facility] and users should be aware that target concentrations vary widely depending on concomitant therapy, time post-transplant, and desired degree of immunosuppression. Performed By: #### T ACRO ####[facility] (DEFAULT)[address] [place] [address] CBC,PLATELETSon 09-10-2023 Erythrocyte distribution width (RBC) [Ratio] 13.9 % 10.9 - 14.3 % [facility] Hematocrit (Bld) [Volume fraction] 40.0 % 39.6 - 48.8 % [facility] Hemoglobin (Bld) [Mass/Vol] 12.7 g/dL Low 13.4 - 16.8 g/dL [facility] Interpretation and review of laboratory results Abnormal [facility] MCH (RBC) [Entitic mass] 27.3 pg 26.1 - 33.3 pg [facility] MCHC (RBC) [Mass/Vol] 31.8 g/dL Low 31.9 - 36.5 g/dL [facility] MCV (RBC) [Entitic vol] 86.0 fL 79.0 - 94.5 fL [facility] Platelet mean volume (Bld) [Entitic vol] 9.5 fL 8.7 - 12.3 fL [facility] Platelets (Bld) [#/Vol] 225 10*3/uL 146 - 337 K/uL [facility] RBC (Bld) [#/Vol] 4.65 10*6/uL [facility] WBC (Bld) [#/Vol] 6.52 10*3/uL 3.73 - 10. 10 K/uL [facility] Hematocrit (Bld) [Volume fraction] 40.0 % Normal 39.6-48.8 [facility] Comment on above: Performed By: #### [facility] ####[facility] (DEFAULT)[address] [place] [address] Hemoglobin (Bld) [Mass/Vol] 12.7 g/dL Low 13.4-16.8 [facility] Comment on above: Performed By: #### H EMOGC ####[facility] (DEFAULT)[address] [place] [address] MCV (RBC) [Entitic vol] 86.0 fL Normal 79.0-94.5 [facility] Comment on above: Performed By: #### H EMOGC ####[facility] (DEFAULT)[address] [place] [address] Mean Cell Hgb 27.3 pg Normal 26.1-33.3 [facility] Comment on above: Performed By: #### H EMOGC ####[facility] (DEFAULT)[address] [place] [address] Mean Cell Hgb Conc 31.8 g/dL Low 31.9-36.5 [facility] Comment on above: Performed By: #### H EMOGC ####[facility] (DEFAULT)[address] [place] [address] Platelet mean volume (Bld) [Entitic vol] 9.5 fL Normal 8.7-12.3 [facility] Comment on above: Performed By: #### H EMOGC ####[facility] (DEFAULT)[address] [place] [address] Platelets (Bld) [#/Vol] 225 10*3/uL Normal 146-337 [facility] Comment on above: Performed By: #### H EMOGC ####[facility] (DEFAULT)[address] [place] [address] RBC (Bld) [#/Vol] 4.65 10*6/uL Normal 4.38-5.83 [facility] Comment on above: Performed By: #### H EMOGC ####[facility] (DEFAULT)[address] [place] [address] RBC Distribution 13.9 % Normal 10.9-14.3 [facility] Comment on above: Performed By: #### [facility] ####[facility] (DEFAULT)[address] [place] [address] WBC (Bld) [#/Vol] 6.52 10*3/uL Normal 3.73-10.10 [facility] Comment on above: Performed By: #### H [facility] ####[facility] (DEFAULT)[address] [place] [address] CHEM 7 (LYTES,BUN,CREA,GLUC) on 09-10-2023 Anion gap [Moles/Vol] 13 mmol/L 7 - 17 mmol/L [facility] Chloride [Moles/Vol] 111 mmol/L High 98 - 10 8 mmol/L [facility] CO2 [Moles/Vol] 20 mmol/L Low 21 - 31 mmol/L [facility] Creatinine [Mass/Vol] 1.27 mg/dL 0.70 - 1.30 mg/dL [facility] eGFR, CKD-EPI, Male 68 - PINF [facility] Glucose [Mass/Vol] 100 mg/dL High 70 - 99 mg/dL [facility] Osmolality Calc [Osmolality] 293 [facility] Potassium [Moles/Vol] 4.4 mmol/L 3.5 - 5.0 mmol/L [facility] Sodium [Moles/Vol] 140 mmol/L 135 - 145 mmol/L [facility] Urea nitrogen [Mass/Vol] 12 mg/dL 7 - 25 mg/dL [facility] Urea nitrogen/Creatinine [Mass ratio] 9 mg/mg [facility] Anion gap [Moles/Vol] 13 mmol/L Normal 7-17 [facility] Comment on above: Performed By: #### NATHANIEL RAMÍREZ, [facility] ####[facility] (DEFAULT)[address] [place] [address] Chloride [Moles/Vol] 111 mmol/L High 98-108 [facility] Comment on above: Performed By: #### M NATHANIEL BLOOM, HFP ####[facility] (DEFAULT)[address] [place] [address] CO2 [Moles/Vol] 20 mmol/L Low 21-31 [facility] Comment on above: Performed By: #### NATHANIEL RAMÍREZ, HFP ####[facility] (DEFAULT)[address] [place] [address] Creatinine [Mass/Vol] 1.27 mg/dL Normal 0.70-1.30 [facility] Comment on above: Performed By: #### NATHANIEL RAMÍREZ, HFP ####[facility] (DEFAULT)[address] [place] [address] GFR/1.73 sq M.predicted among non-blacks MDRD (S/P/Bld) [Vol rate/Area] 68 mL/min/{1.73_m2} Normal >=60 [facility] Comment on above: Result Comment: Repo rted eGFR is based on the CKD-EPI 2020 equation using creatinine, age, and sex. Performed By: #### NATHANIEL RAMÍREZ, HFP ####[facility] (DEFAULT)[address] [place] [address], [place] [address] Glucose [Mass/Vol] 100 mg/dL High 70-99 [facility] Comment on above: Performed By: #### NATHANIEL RAMÍREZ, HFP ####[facility] (DEFAULT)[address] [place] [address] Osmolality [Osmolality] 293 mosm/kg Normal 278-305 [facility] Comment on above: Performed By: #### NATHANIEL RAMÍREZ, HFP ####[facility] (DEFAULT)[address] [place] [address] Potassium [Moles/Vol] 4.4 mmol/L Normal 3.5-5.0 [facility] Comment on above: Performed By: #### NATHANIEL RAMÍREZ, HFP ####[facility] (DEFAULT)[address] [facility] [place] [address] Sodium [Moles/Vol] 140 mmol/L Normal 135-145 [facility] Comment on above: Performed By: #### M NATHANIEL BLOOM, HFP ####[facility] (DEFAULT)[address] [place] [address] Urea nitrogen [Mass/Vol] 12 mg/dL Normal 7-25 [facility] Comment on above: Performed By: #### M NATHANIEL BLOOM, HFP ####[facility] (DEFAULT)[address] [place] [address] Urea nitrogen/Creatinine [Mass ratio] 9 mg/mg Normal [facility] Comment on above: Performed By: #### NATHANIEL RAMÍREZ, HFP ####[facility] (DEFAULT)[address] [facility] [place] [address] HEPATIC FUNCTION PANELon Albumin [Mass/Vol] 3.3 g/dL Low 3.5 - 5.0 g/dL [facility] ALP [Catalytic activity/Vol] 143 U/L High 32 - 126 U/L [facility] ALT [Catalytic activity/Vol] 28 U/L 10 - 52 U/L [facility] AST [Catalytic activity/Vol] 29 U/L 10 - 39 U/L [facility] Bilirubin [Mass/Vol] 0.9 mg/dL [facility] - 1.5 mg/dL [facility] Bilirubin.direct [Mass/Vol] 0.2 mg/dL NINF - 0.3 mg/dL [facility] Protein [Mass/Vol] 6.8 g/dL 6.4 - 8.3 g/dL [facility] Albumin [Mass/Vol] 3.3 g/dL Low 3.5-5.0 [facility] Comment on above: Performed By: #### NATHANIEL RAMÍREZ, HFP ####[facility] (DEFAULT)[address] [facility] [place] [address] ALP [Catalytic activity/Vol] 143 U/L High 32-126 [facility] Comment on above: Performed By: #### M NATHANIEL BLOOM, HFP ####[facility] (DEFAULT)[address] [place] [address] ALT [Catalytic activity/Vol] 28 U/L Normal 10-52 [facility] Comment on above: Performed By: #### NATHANIEL RAMÍREZ, HFP ####[facility] (DEFAULT)[address] [place] [address] AST [Catalytic activity/Vol] 29 U/L Normal 10-39 [facility] Comment on above: Performed By: #### NATHANIEL RAMÍREZ, HFP ####[facility] (DEFAULT)[address] [place] [address] Bilirubin [Mass/Vol] 0.9 mg/dL Normal <1.5 [facility] Comment on above: Performed By: #### NATHANIEL RAMÍREZ, HFP ####[facility] (DEFAULT)[address] [place] [address] Bilirubin.indirect [Mass/Vol] 0.2 mg/dL Normal <0.3 [facility] Comment on above: Performed By: #### TJ RAMÍREZ7, HFP ####[facility] (DEFAULT)[address] [place] [address] Protein [Mass/Vol] 6.8 g/dL Normal 6.4-8.3 [facility] Comment on above: Performed By: #### NATHANIEL RAMÍREZ, HFP ####[facility] (DEFAULT)[address] [place] [address] MAGNESIUMon 09-10-2023 Interpretation and review of laboratory results Normal [facility] Magnesium [Mass/Vol] 1.9 mg/dL 1.6 - 2 .6 mg/dL [facility] Magnesium [Mass/Vol] 1.9 mg/dL Normal 1.6-2.6 [facility] Comment on above: Performed By: #### M GO, CHM7, HFP ####[facility] (DEFAULT)[address] [place] [address] No Panel Informationon 09-10 Interpretation and review of laboratory results Abnormal [facility] TACROLIMUS LEVEL, TROUGH (MS E DRUG LEVEL)Ordered By: Jimy Csatillo on 09-10-2023 Interpretation and review of laboratory results Normal [facility] Tacrolimus (Bld) [Mass/Vol] 11.8 ng/mL [facility] TACROLIMUS LEVEL, TROUGH (MS E DRUG LEVEL)on 09-10-2023 Tacrolimus, Trough 11.8 ng/mL Normal Bone Susana ow Transplant: 4.0-12.0, Therapeutic: 5.0-15.0 [facility] Comment on above: Order Comment: Pleas e draw at specified interval PRIOR to dose. Do not hold dose to wait for level. Specimens batched twice per day, (M-F) and once per day weekendsMethod performed is a chemiluminescent microparticle immunoasssay on the [employer] i[employer].The range is based on experience at [facility] and users should be aware that target concentrations vary widely depending on concomitant therapy, time post-transplant, and desired degree of immunosuppression. Performed By: #### T ACRO ####[facility] (DEFAULT)[address] [place] [address] CHEM 7 (LYTES,BUN,CREA,GLUC) on 09-09-2023 Anion gap [Moles/Vol] 14 mmol/L 7 - 17 mmol/L [facility] Chloride [Moles/Vol] 113 mmol/L High 98 - 10 8 mmol/L [facility] CO2 [Moles/Vol] 18 mmol/L Low 21 - 31 mmol/L [facility] Creatinine [Mass/Vol] 1.03 mg/dL 0.70 - 1.30 mg/dL [facility] eGFR, CKD-EPI, Male 87 - PINF [facility] Glucose [Mass/Vol] 106 mg/dL High 70 - 99 mg/dL [facility] Interpretation and review of laboratory results Abnormal [facility] Osmolality Calc [Osmolality] 294 [facility] Potassium [Moles/Vol] 4.0 mmol/L 3.5 - 5.0 mmol/L [facility] Sodium [Moles/Vol] 141 mmol/L 135 - 145 mmol/L [facility] Urea nitrogen [Mass/Vol] 10 mg/dL 7 - 25 mg/dL [facility] Urea nitrogen/Creatinine [Mass ratio] 10 mg/mg [facility] Anion gap [Moles/Vol] 14 mmol/L Normal 7-17 [facility] Comment on above: Performed By: #### JO ANN RAMÍREZ, CHM7 ####[facility] (DEFAULT)[address] [facility] [place] [address] Chloride [Moles/Vol] 113 mmol/L High 98-108 [facility] Comment on above: Performed By: #### JO ANN RAMÍREZ, CHM7 ####[facility] (DEFAULT)[address] [facility] [place] [address] CO2 [Moles/Vol] 18 mmol/L Low 21-31 [facility] Comment on above: Performed By: #### JO ANN RAMÍREZ, CHM7 ####[facility] (DEFAULT)[address] [facility] [place] [address] Creatinine [Mass/Vol] 1.03 mg/dL Normal 0.70-1.30 [facility] Comment on above: Performed By: #### JO ANN RAMÍREZ, CHM7 ####[facility] (DEFAULT)[address] [place] [address] GFR/1.73 sq M.predicted among non-blacks MDRD (S/P/Bld) [Vol rate/Area] 87 mL/min/{1.73_m2} Normal >=60 [facility] Comment on above: Result Comment: Repo rted eGFR is based on the CKD-EPI 2020 equation using creatinine, age, and sex. Performed By: #### JO ANN RAMÍREZ CHM7 ####[facility] (DEFAULT)[address] [place] [address] Glucose [Mass/Vol] 106 mg/dL High 70-99 [facility] Comment on above: Performed By: #### JO ANN RAMÍREZ CHM7 ####[facility] (DEFAULT)[address] [place] [address] Osmolality [Osmolality] 294 mosm/kg Normal 278-305 [facility] Comment on above: Performed By: #### JO ANN RAMÍREZ CHM7 ####[facility] (DEFAULT)[address] [place] [address] Potassium [Moles/Vol] 4.0 mmol/L Normal 3.5-5.0 [facility] Comment on above: Performed By: #### JO ANN RAMÍREZ CHM7 ####[facility] (DEFAULT)[address] [place] [address] Sodium [Moles/Vol] 141 mmol/L Normal 135-145 [facility] Comment on above: Performed By: #### JO ANN RAMÍREZ, CHM7 ####[facility] (DEFAULT)[address] [place] [address] Urea nitrogen [Mass/Vol] 10 mg/dL Normal 7-25 [facility] Comment on above: Performed By: #### JO ANN RAMÍREZ, CHM7 ####[facility] (DEFAULT)[address] [place] [address] Urea nitrogen/Creatinine [Mass ratio] 10 mg/mg Normal [facility] Comment on above: Performed By: #### JO ANN RAMÍREZ, CHM7 ####[facility] (DEFAULT)[address] [place] [address] MAGNESIUMon 09-09-2023 Magnesium [Mass/Vol] 1.6 mg/dL 1.6 - 2 .6 mg/dL [facility] Magnesium [Mass/Vol] 1.6 mg/dL Normal 1.6-2.6 [facility] Comment on above: Performed By: #### M JO ANN BLOOM CHM7 ####[facility] (DEFAULT)[address] [place] [address] No Panel Informationon 09-09 Interpretation and review of laboratory results Normal [facility] PHOSPHATE, INORGANICon 09-09 Phosphate [Mass/Vol] 3.8 mg/dL 2.2 - 4 .6 mg/dL [facility] Phosphorous 3.8 mg/dL Normal 2.2-4.6 [facility] Comment on above: Performed By: #### M JO ANN BLOOM CHM7 ####[facility] (DEFAULT)[address] [place] [address] TACROLIMUS LEVEL, TROUGH (MS E DRUG LEVEL)on 09-09-2023 Interpretation and review of laboratory results Normal [facility] Tacrolimus (Bld) [Mass/Vol] 9.2 ng/mL [facility] Tacrolimus, Trough 9.2 ng/mL Normal Bone Susana ow Transplant: 4.0-12.0, Therapeutic: 5.0-15.0 [facility] Comment on above: Order Comment: Pleas e draw at specified interval PRIOR to dose. Do not hold dose to wait for level. Specimens batched twice per day, (M-F) and once per day weekendsMethod performed is a chemiluminescent microparticle immunoasssay on the [employer].The range is based on experience at [facility] and users should be aware that target concentrations vary widely depending on concomitant therapy, time post-transplant, and desired degree of immunosuppression. Performed By: #### T ACRO ####[facility] (DEFAULT)[address] [place] [address] CBC,PLATELETSon 09-08-2023 Erythrocyte distribution width (RBC) [Ratio] 13.6 % 10.9 - 14.3 % [facility] Hematocrit (Bld) [Volume fraction] 36.1 % Low 39.6 - 48.8 % [facility] Hemoglobin (Bld) [Mass/Vol] 11.6 g/dL Low 13.4 - 16.8 g/dL [facility] Interpretation and review of laboratory results Abnormal [facility] MCH (RBC) [Entitic mass] 27.4 pg 26.1 - 33.3 pg [facility] MCHC (RBC) [Mass/Vol] 32.1 g/dL 31.9 - 36.5 g/dL [facility] MCV (RBC) [Entitic vol] 85.1 fL 79.0 - 94.5 fL [facility] Platelet mean volume (Bld) [Entitic vol] 9.5 fL 8.7 - 12.3 fL [facility] Platelets (Bld) [#/Vol] 182 10*3/uL 146 - 337 K/uL [facility] RBC (Bld) [#/Vol] 4.24 10*6/uL Low [facility] WBC (Bld) [#/Vol] 4.59 10*3/uL 3.73 - 10. 10 K/uL [facility] Hematocrit (Bld) [Volume fraction] 36.1 % Low 39.6-48.8 [facility] Comment on above: Performed By: #### [facility] ####[facility] (DEFAULT)[address] [place] [address] Hemoglobin (Bld) [Mass/Vol] 11.6 g/dL Low 13.4-16.8 [facility] Comment on above: Performed By: #### [facility] ####[facility] (DEFAULT)[address] [place] [address] MCV (RBC) [Entitic vol] 85.1 fL Normal 79.0-94.5 [facility] Comment on above: Performed By: #### [facility] ####[facility] (DEFAULT)[address] [place] [address] Mean Cell Hgb 27.4 pg Normal 26.1-33.3 [facility] Comment on above: Performed By: #### H EMOGC ####[facility] (DEFAULT)[address] [place] [address] Mean Cell Hgb Conc 32.1 g/dL Normal 31.9-36.5 [facility] Comment on above: Performed By: #### H EMOGC ####[facility] (DEFAULT)[address] [place] [address] Platelet mean volume (Bld) [Entitic vol] 9.5 fL Normal 8.7-12.3 [facility] Comment on above: Performed By: #### H EMOGC ####[facility] (DEFAULT)[address] [place] [address] Platelets (Bld) [#/Vol] 182 10*3/uL Normal 146-337 [facility] Comment on above: Performed By: #### H EMOGC ####[facility] (DEFAULT)[address] [place] [address] RBC (Bld) [#/Vol] 4.24 10*6/uL Low 4.38-5.83 [facility] Comment on above: Performed By: #### H EMOGC ####[facility] (DEFAULT)[address] [place] [address] RBC Distribution 13.6 % Normal 10.9-14.3 [facility] Comment on above: Performed By: #### H EMOGC ####[facility] (DEFAULT)[address] [place] [address] WBC (Bld) [#/Vol] 4.59 10*3/uL Normal 3.73-10.10 [facility] Comment on above: Performed By: #### H EMOGC ####[facility] (DEFAULT)[address] [place] [address] CHEM 7 (LYTES,BUN,CREA,GLUC) on 09-08-2023 Anion gap [Moles/Vol] 12 mmol/L 7 - 17 mmol[facility] Chloride [Moles/Vol] 113 mmol/L High 98 - 10 8 mmol/L [facility] CO2 [Moles/Vol] 21 mmol/L 21 - 31 mmol/L [facility] Creatinine [Mass/Vol] 1.14 mg/dL 0.70 - 1.30 mg/dL [facility] eGFR, CKD-EPI, Male 77 - [facility]F [facility] Glucose [Mass/Vol] 107 mg/dL High 70 - 99 mg/dL [facility] Osmolality Calc [Osmolality] 296 [facility] Potassium [Moles/Vol] 3.9 mmol/L 3.5 - 5.0 mmol/L [facility] Sodium [Moles/Vol] 142 mmol/L 135 - 145 mmol/L [facility] Urea nitrogen [Mass/Vol] 11 mg/dL 7 - 25 mg/dL [facility] Urea nitrogen/Creatinine [Mass ratio] 10 mg/mg [facility] Anion gap [Moles/Vol] 12 mmol/L Normal 7-17 [facility] Comment on above: Performed By: #### M JO ANN BLOOM, CHM7, HFP ####[facility] (DEFAULT)[address] [place] [address] Chloride [Moles/Vol] 113 mmol/L High 98-108 [facility] Comment on above: Performed By: #### M MERLE IPB, CHM7, HFP ####[facility] (DEFAULT)[address] [place] [address] CO2 [Moles/Vol] 21 mmol/L Normal 21-31 [facility] Comment on above: Performed By: #### M MERLE IPB, CHM7, HFP ####[facility] (DEFAULT)[address] [place] [address] Creatinine [Mass/Vol] 1.14 mg/dL Normal 0.70-1.30 [facility] Comment on above: Performed By: #### JO ANN RAMÍREZ, HELENM7, HFP ####[facility] (DEFAULT)[address] [place] [address] GFR/1.73 sq M.predicted among non-blacks MDRD (S/P/Bld) [Vol rate/Area] 77 mL/min/{1.73_m2} Normal >=60 [facility] Comment on above: Result Comment: Repo rted eGFR is based on the CKD-EPI 2020 equation using creatinine, age, and sex. Performed By: #### JO ANN RAMÍREZ, CHM7, HFP ####[facility] (DEFAULT)[address] [place] [address] Glucose [Mass/Vol] 107 mg/dL High 70-99 [facility] Comment on above: Performed By: #### JO ANN RAMÍREZ, CHM7, HFP ####[facility] (DEFAULT)[address] [place] [address] Osmolality [Osmolality] 296 mosm/kg Normal 278-305 [facility] Comment on above: Performed By: #### JO ANN RAMÍREZ, CHM7, HFP ####[facility] (DEFAULT)[address] [place] [address] Potassium [Moles/Vol] 3.9 mmol/L Normal 3.5-5.0 [facility] Comment on above: Performed By: #### JO ANN RAMÍREZ, CHM7, HFP ####[facility] (DEFAULT)[address] [place] [address] Sodium [Moles/Vol] 142 mmol/L Normal 135-145 [facility] Comment on above: Performed By: #### CASTRO RAMÍREZB, CHM7, HFP ####[facility] (DEFAULT)[address] [place] [address] Urea nitrogen [Mass/Vol] 11 mg/dL Normal 7-25 [facility] Comment on above: Performed By: #### M JO ANN BLOOM, CHM7, HFP ####[facility] (DEFAULT)[address] [place] [address] Urea nitrogen/Creatinine [Mass ratio] 10 mg/mg Normal [facility] Comment on above: Performed By: #### M JO ANN BLOOM, CHM7, HFP ####[facility] (DEFAULT)[address] [place] [address] HEPATIC FUNCTION PANELon Albumin [Mass/Vol] 2.9 g/dL Low 3.5 - 5.0 g/dL [facility] ALP [Catalytic activity/Vol] 133 U/L High 32 - 126 U/L [facility] ALT [Catalytic activity/Vol] 23 U/L 10 - 52 U/L [facility] AST [Catalytic activity/Vol] 23 U/L 10 - 39 U/L [facility] Bilirubin [Mass/Vol] 0.8 mg/dL [facility] - 1.5 mg/dL [facility] Bilirubin.direct [Mass/Vol] 0.2 mg/dL [facility] - 0.3 mg/dL [facility] Protein [Mass/Vol] 5.9 g/dL Low 6.4 - 8.3 g/dL [facility] Albumin [Mass/Vol] 2.9 g/dL Low 3.5-5.0 [facility] Comment on above: Performed By: #### M JO ANN BLOOM, CHM7, HFP ####[facility] (DEFAULT)[address] [place] [address] ALP [Catalytic activity/Vol] 133 U/L High 32-126 [facility] Comment on above: Performed By: #### M JO ANN BLOOM, CHM7, HFP ####[facility] (DEFAULT)[address] [place] [address] ALT [Catalytic activity/Vol] 23 U/L Normal 10-52 [facility] Comment on above: Performed By: #### M MERLE, IPB, CHM7, HFP ####[facility] (DEFAULT)[address] [place] [address] AST [Catalytic activity/Vol] 23 U/L Normal 10-39 [facility] Comment on above: Performed By: #### M GO, IPB, CHM7, HFP ####[facility] (DEFAULT)[address] [facility] [place] [address] Bilirubin [Mass/Vol] 0.8 mg/dL Normal <1.5 [facility] Comment on above: Performed By: #### M GO, IPB, CHM7, HFP ####[facility] (DEFAULT)[address] [place] [address] Bilirubin.indirect [Mass/Vol] 0.2 mg/dL Normal <0.3 [facility] Comment on above: Performed By: #### M GO, IPB, CHM7, HFP ####[facility] (DEFAULT)[address] [facility] [place] [address] Protein [Mass/Vol] 5.9 g/dL Low 6.4-8.3 [facility] Comment on above: Performed By: #### M GO, IPB, CHM7, HFP ####[facility] (DEFAULT)[address] [facility] [place] [address] MAGNESIUMon 09-08-2023 Interpretation and review of laboratory results Normal [facility] Magnesium [Mass/Vol] 1.8 mg/dL 1.6 - 2 .6 mg/dL [facility] Magnesium [Mass/Vol] 1.8 mg/dL Normal 1.6-2.6 [facility] Comment on above: Performed By: #### M GO, IPB, CHM7, HFP ####[facility] (DEFAULT)[address] [facility] [place] [address] No Panel Informationon 09-08 Interpretation and review of laboratory results Abnormal [facility] PHOSPHATE, INORGANICon 09-08 Interpretation and review of laboratory results Normal [facility] Phosphate [Mass/Vol] 4.1 mg/dL 2.2 - 4 .6 mg/dL [facility] Phosphorous 4.1 mg/dL Normal 2.2-4.6 [facility] Comment on above: Performed By: #### M GO, IPB, CHM7, HFP ####[facility] (DEFAULT)[address] [place] [address] TACROLIMUS LEVEL, TROUGH (MS E DRUG LEVEL)on 09-08-2023 Interpretation and review of laboratory results Normal [facility] Tacrolimus (Bld) [Mass/Vol] 8.5 ng/mL [facility] Tacrolimus, Trough 8.5 ng/mL Normal Bone Susana ow Transplant: 4.0-12.0, Therapeutic: 5.0-15.0 [facility] Comment on above: Order Comment: Pleas e draw at specified interval PRIOR to dose. Do not hold dose to wait for level. Specimens batched twice per day, (M-F) and once per day weekendsMethod performed is a chemiluminescent microparticle immunoasssay on the [employer] i2000.The range is based on experience at [facility] and users should be aware that target concentrations vary widely depending on concomitant therapy, time post-transplant, and desired degree of immunosuppression. Performed By: #### T ACRO ####[facility] (DEFAULT)[address] [place] [address] CBC,PLATELETSon 09-07-2023 Erythrocyte distribution width (RBC) [Ratio] 13.5 % 10.9 - 14.3 % [facility] Hematocrit (Bld) [Volume fraction] 37.1 % Low 39.6 - 48.8 % [facility] Hemoglobin (Bld) [Mass/Vol] 11.9 g/dL Low 13.4 - 16.8 g/dL [facility] Interpretation and review of laboratory results Abnormal [facility] MCH (RBC) [Entitic mass] 27.7 pg 26.1 - 33.3 pg [facility] MCHC (RBC) [Mass/Vol] 32.1 g/dL 31.9 - 36.5 g/dL [facility] MCV (RBC) [Entitic vol] 86.5 fL 79.0 - 94.5 fL [facility] Platelet mean volume (Bld) [Entitic vol] 9.6 fL 8.7 - 12.3 fL [facility] Platelets (Bld) [#/Vol] 176 10*3/uL 146 - 337 K/uL [facility] RBC (Bld) [#/Vol] 4.29 10*6/uL Low [facility] WBC (Bld) [#/Vol] 4.10 10*3/uL 3.73 - 10. 10 K/uL [facility] Hematocrit (Bld) [Volume fraction] 37.1 % Low 39.6-48.8 [facility] Comment on above: Performed By: #### H [facility] ####[facility] (DEFAULT)[address] [place] [address] Hemoglobin (Bld) [Mass/Vol] 11.9 g/dL Low 13.4-16.8 [facility] Comment on above: Performed By: #### H EMO ####[facility] (DEFAULT)[address] [place] [address] MCV (RBC) [Entitic vol] 86.5 fL Normal 79.0-94.5 [facility] Comment on above: Performed By: #### H EMO ####[facility] (DEFAULT)[address] [place] [address] Mean Cell Hgb 27.7 pg Normal 26.1-33.3 [facility] Comment on above: Performed By: #### H EMO ####[facility] (DEFAULT)[address] [place] [address] Mean Cell Hgb Conc 32.1 g/dL Normal 31.9-36.5 [facility] Comment on above: Performed By: #### H EMOGC ####[facility] (DEFAULT)[address] [place] [address] Platelet mean volume (Bld) [Entitic vol] 9.6 fL Normal 8.7-12.3 [facility] Comment on above: Performed By: #### H EMO ####[facility] (DEFAULT)[address] [facility] [place] [address] Platelets (Bld) [#/Vol] 176 10*3/uL Normal 146-337 [facility] Comment on above: Performed By: #### H EMO ####[facility] (DEFAULT)[address] [facility] [place] [address] RBC (Bld) [#/Vol] 4.29 10*6/uL Low 4.38-5.83 [facility] Comment on above: Performed By: #### H EMO ####[facility] (DEFAULT)[address] [place] [address] RBC Distribution 13.5 % Normal 10.9-14.3 [facility] Comment on above: Performed By: #### H EMOGC ####[facility] (DEFAULT)[address] [facility] [place] [address] WBC (Bld) [#/Vol] 4.10 10*3/uL Normal 3.73-10.10 [facility] Comment on above: Performed By: #### H EMOGC ####[facility] (DEFAULT)[address] [place] [address] CHEM 7 (LYTES,BUN,CREA,GLUC) on 09-07-2023 Anion gap [Moles/Vol] 13 mmol/L 7 - 17 mmol/L [facility] Chloride [Moles/Vol] 113 mmol/L High 98 - 10 8 mmol/L [facility] CO2 [Moles/Vol] 19 mmol/L Low 21 - 31 mmol/L [facility] Creatinine [Mass/Vol] 1.22 mg/dL 0.70 - 1.30 mg/dL [facility] eGFR, CKD-EPI, Male 71 - PINF [facility] Glucose [Mass/Vol] 107 mg/dL High 70 - 99 mg/dL [facility] Osmolality Calc [Osmolality] 295 [facility] Potassium [Moles/Vol] 3.9 mmol/L 3.5 - 5.0 mmol/L [facility] Sodium [Moles/Vol] 141 mmol/L 135 - 145 mmol/L [facility] Urea nitrogen [Mass/Vol] 13 mg/dL 7 - 25 mg/dL [facility] Urea nitrogen/Creatinine [Mass ratio] 11 mg/mg [facility] Anion gap [Moles/Vol] 13 mmol/L Normal 7-17 [facility] Comment on above: Performed By: #### C HM7, IPB, MGO, HFP ####[facility] (DEFAULT)[address] [place] [address] Chloride [Moles/Vol] 113 mmol/L High 98-108 [facility] Comment on above: Performed By: #### C HM7, IPB, MGO, HFP ####[facility] (DEFAULT)[address] [facility] [place] [address] CO2 [Moles/Vol] 19 mmol/L Low 21-31 [facility] Comment on above: Performed By: #### C HM7, IPB, MGO, HFP ####[facility] (DEFAULT)[address] [place] [address] Creatinine [Mass/Vol] 1.22 mg/dL Normal 0.70-1.30 [facility] Comment on above: Performed By: #### C HM7, IPB, MGO, HFP ####[facility] (DEFAULT)[address] [facility] [place] [address] GFR/1.73 sq M.predicted among non-blacks MDRD (S/P/Bld) [Vol rate/Area] 71 mL/min/{1.73_m2} Normal >=60 [facility] Comment on above: Result Comment: Repo rted eGFR is based on the CKD-EPI 2020 equation using creatinine, age, and sex. Performed By: #### C HM7, IPB, MGO, HFP ####[facility] (DEFAULT)[address] [place] [address] Glucose [Mass/Vol] 107 mg/dL High 70-99 [facility] Comment on above: Performed By: #### C HM7, IPB, MGO, HFP ####[facility] (DEFAULT)[address] [place] [address] Osmolality [Osmolality] 295 mosm/kg Normal 278-305 [facility] Comment on above: Performed By: #### C HM7, IPB, MGO, HFP ####[facility] (DEFAULT)[address] [place] [address] Potassium [Moles/Vol] 3.9 mmol/L Normal 3.5-5.0 [facility] Comment on above: Performed By: #### C HM7, IPB, MGO, HFP ####[facility] (DEFAULT)[address] [place] [address] Sodium [Moles/Vol] 141 mmol/L Normal 135-145 [facility] Comment on above: Performed By: #### C HM7, IPB, MGO, HFP ####[facility] (DEFAULT)[address] [facility] [place] [address] Urea nitrogen [Mass/Vol] 13 mg/dL Normal 7-25 [facility] Comment on above: Performed By: #### C HM7, IPB, MGO, HFP ####[facility] (DEFAULT)[address] [place] [address], [place] [address] Urea nitrogen/Creatinine [Mass ratio] 11 mg/mg Normal [facility] Comment on above: Performed By: #### C HM7, IPB, MGO, HFP ####[facility] (DEFAULT)[address] [place] [address] HEPATIC FUNCTION PANELon Albumin [Mass/Vol] 2.9 g/dL Low 3.5 - 5.0 g/dL [facility] ALP [Catalytic activity/Vol] 111 U/L 32 - 126 U/L [facility] ALT [Catalytic activity/Vol] 18 U/L 10 - 52 U/L [facility] AST [Catalytic activity/Vol] 23 U/L 10 - 39 U/L [facility] Bilirubin [Mass/Vol] 0.8 mg/dL [facility] - 1.5 mg/dL [facility] Bilirubin.direct [Mass/Vol] 0.3 mg/dL High NINF - 0.3 mg/dL [facility] Protein [Mass/Vol] 6.0 g/dL Low 6.4 - 8.3 g/dL [facility] Albumin [Mass/Vol] 2.9 g/dL Low 3.5-5.0 [facility] Comment on above: Performed By: #### C HM7, IPB, MGO, HFP ####[facility] (DEFAULT)[address] [place] [address] ALP [Catalytic activity/Vol] 111 U/L Normal 32-126 [facility] Comment on above: Performed By: #### C HM7, IPB, MGO, HFP ####[facility] (DEFAULT)[address] [place] [address] ALT [Catalytic activity/Vol] 18 U/L Normal 10-52 [facility] Comment on above: Performed By: #### C HM7, IPB, MGO, HFP ####[facility] (DEFAULT)[address] [place] [address] AST [Catalytic activity/Vol] 23 U/L Normal 10-39 [facility] Comment on above: Performed By: #### C HM7, IPB, MGO, HFP ####[facility] (DEFAULT)[address] [facility] [place] [address] Bilirubin [Mass/Vol] 0.8 mg/dL Normal <1.5 [facility] Comment on above: Performed By: #### C HM7, IPB, MGO, HFP ####[facility] (DEFAULT)[address] [place] [address] Bilirubin.indirect [Mass/Vol] 0.3 mg/dL High <0.3 [facility] Comment on above: Performed By: #### C HM7, IPB, MGO, HFP ####[facility] (DEFAULT)[address] [facility] [place] [address] Protein [Mass/Vol] 6.0 g/dL Low 6.4-8.3 [facility] Comment on above: Performed By: #### C HM7, IPB, MGO, HFP ####[facility] (DEFAULT)[address] [place] [address] MAGNESIUMon 09-07-2023 Interpretation and review of laboratory results Normal [facility] Magnesium [Mass/Vol] 1.7 mg/dL 1.6 - 2 .6 mg/dL [facility] Magnesium [Mass/Vol] 1.7 mg/dL Normal 1.6-2.6 [facility] Comment on above: Performed By: #### C HM7, IPB, MGO, HFP ####[facility] (DEFAULT)[address] [place] [address] No Panel Informationon 09-07 Interpretation and review of laboratory results Abnormal [facility] PHOSPHATE, INORGANICon 09-07 Interpretation and review of laboratory results Normal [facility] Phosphate [Mass/Vol] 4.4 mg/dL 2.2 - 4 .6 mg/dL [facility] Phosphorous 4.4 mg/dL Normal 2.2-4.6 [facility] Comment on above: Performed By: #### C HM7, IPB, MGO, HFP ####[facility] (DEFAULT)[address] [place] [address] TACROLIMUS LEVEL, TROUGH (MS E DRUG LEVEL)Ordered By: Elizabeth Maldonado on 09-07-2023 Interpretation and review of laboratory results Normal [facility] Tacrolimus (Bld) [Mass/Vol] 7.8 ng/mL [facility] TACROLIMUS LEVEL, TROUGH (MS E DRUG LEVEL)on 09-07-2023 Tacrolimus, Trough 7.8 ng/mL Normal Bone Susana ow Transplant: 4.0-12.0, Therapeutic: 5.0-15.0 [facility] Comment on above: Order Comment: Pleas e draw at specified interval PRIOR to dose. Do not hold dose to wait for level. Specimens batched twice per day, (M-F) and once per day weekendsMethod performed is a chemiluminescent microparticle immunoasssay on the [employer] i2000.The range is based on experience at [facility] and users should be aware that target concentrations vary widely depending on concomitant therapy, time post-transplant, and desired degree of immunosuppression. Performed By: #### T ACRO ####[facility] (DEFAULT)[address] [place] [address] CBC,PLATELETSon 09-06-2023 Erythrocyte distribution width (RBC) [Ratio] 13.4 % 10.9 - 14.3 % [facility] Hematocrit (Bld) [Volume fraction] 38.4 % Low 39.6 - 48.8 % [facility] Hemoglobin (Bld) [Mass/Vol] 11.9 g/dL Low 13.4 - 16.8 g/dL [facility] Interpretation and review of laboratory results Abnormal [facility] MCH (RBC) [Entitic mass] 26.6 pg 26.1 - 33.3 pg [facility] MCHC (RBC) [Mass/Vol] 31.0 g/dL Low 31.9 - 36.5 g/dL [facility] MCV (RBC) [Entitic vol] 85.9 fL 79.0 - 94.5 fL [facility] Platelet mean volume (Bld) [Entitic vol] 9.7 fL 8.7 - 12.3 fL [facility] Platelets (Bld) [#/Vol] 181 10*3/uL 146 - 337 K/uL [facility] RBC (Bld) [#/Vol] 4.47 10*6/uL [facility] WBC (Bld) [#/Vol] 4.41 10*3/uL 3.73 - 10. 10 K/uL [facility] Hematocrit (Bld) [Volume fraction] 38.4 % Low 39.6-48.8 [facility] Comment on above: Performed By: #### H [facility] ####[facility] (DEFAULT)[address] [place] [address] Hemoglobin (Bld) [Mass/Vol] 11.9 g/dL Low 13.4-16.8 [facility] Comment on above: Performed By: #### H EMO ####[facility] (DEFAULT)[address] [facility] [place] [address] MCV (RBC) [Entitic vol] 85.9 fL Normal 79.0-94.5 [facility] Comment on above: Performed By: #### H EMO ####[facility] (DEFAULT)[address] [place] [address] Mean Cell Hgb 26.6 pg Normal 26.1-33.3 [facility] Comment on above: Performed By: #### H EMO ####[facility] (DEFAULT)[address] [facility] [place] [address] Mean Cell Hgb Conc 31.0 g/dL Low 31.9-36.5 [facility] Comment on above: Performed By: #### H EMO ####[facility] (DEFAULT)[address] [facility] [id number] Platelet mean volume (Bld) [Entitic vol] 9.7 fL Normal 8.7-12.3 [facility] Comment on above: Performed By: #### H EMOGC ####[facility] (DEFAULT)[address] [facility] [place] [address] Platelets (Bld) [#/Vol] 181 10*3/uL Normal 146-337 [facility] Comment on above: Performed By: #### H EMO ####[facility] (DEFAULT)[address] [facility] [place] [address] RBC (Bld) [#/Vol] 4.47 10*6/uL Normal 4.38-5.83 [facility] Comment on above: Performed By: #### H EMO ####[facility] (DEFAULT)[address] [facility] [place] [address] RBC Distribution 13.4 % Normal 10.9-14.3 [facility] Comment on above: Performed By: #### H EMOGC ####[facility] (DEFAULT)[address] [facility] [place] [address] WBC (Bld) [#/Vol] 4.41 10*3/uL Normal 3.73-10.10 [facility] Comment on above: Performed By: #### H EMOGC ####[facility] (DEFAULT)[address] [place] [address], [place] [address] CHEM 7 (LYTES,BUN,CREA,GLUC) on 09-06-2023 Anion gap [Moles/Vol] 14 mmol/L 7 - 17 mmol/L [facility] Chloride [Moles/Vol] 109 mmol/L High 98 - 10 8 mmol/L [facility] CO2 [Moles/Vol] 19 mmol/L Low 21 - 31 mmol/L [facility] Creatinine [Mass/Vol] 1.26 mg/dL 0.70 - 1.30 mg/dL [facility] eGFR, CKD-EPI, Male 69 - PINF [facility] Glucose [Mass/Vol] 114 mg/dL High 70 - 99 mg/dL [facility] Osmolality Calc [Osmolality] 291 [facility] Potassium [Moles/Vol] 4.1 mmol/L 3.5 - 5.0 mmol/L [facility] Sodium [Moles/Vol] 138 mmol/L 135 - 145 mmol/L [facility] Urea nitrogen [Mass/Vol] 16 mg/dL 7 - 25 mg/dL [facility] Urea nitrogen/Creatinine [Mass ratio] 13 mg/mg [facility] Anion gap [Moles/Vol] 14 mmol/L Normal 7-17 [facility] Comment on above: Performed By: #### NATHANIEL RAMÍREZ, HFP ####[facility] (DEFAULT)[address] [place] [address] Chloride [Moles/Vol] 109 mmol/L High 98-108 [facility] Comment on above: Performed By: #### NATHANIEL RAMÍREZ, HFP ####[facility] (DEFAULT)[address] [place] [address] CO2 [Moles/Vol] 19 mmol/L Low 21-31 [facility] Comment on above: Performed By: #### NATHANIEL RAMÍREZ, HFP ####[facility] (DEFAULT)[address] [place] [address] Creatinine [Mass/Vol] 1.26 mg/dL Normal 0.70-1.30 [facility] Comment on above: Performed By: #### NATHANIEL RAMÍREZ, HFP ####[facility] (DEFAULT)[address] [place] [address] GFR/1.73 sq M.predicted among non-blacks MDRD (S/P/Bld) [Vol rate/Area] 69 mL/min/{1.73_m2} Normal >=60 [facility] Comment on above: Result Comment: Repo rted eGFR is based on the CKD-EPI 2020 equation using creatinine, age, and sex. Performed By: #### NATHANIEL RAMÍREZ, HFP ####[facility] (DEFAULT)[address] [place] [address] Glucose [Mass/Vol] 114 mg/dL High 70-99 [facility] Comment on above: Performed By: #### NATHANIEL RAMÍREZ, HFP ####[facility] (DEFAULT)[address] [place] [address] Osmolality [Osmolality] 291 mosm/kg Normal 278-305 [facility] Comment on above: Performed By: #### NATHANIEL RAMÍREZ, HFP ####[facility] (DEFAULT)[address] [place] [address] Potassium [Moles/Vol] 4.1 mmol/L Normal 3.5-5.0 [facility] Comment on above: Performed By: #### NATHANIEL RAMÍREZ, HFP ####[facility] (DEFAULT)[address] [place] [address] Sodium [Moles/Vol] 138 mmol/L Normal 135-145 [facility] Comment on above: Performed By: #### NATHANIEL RAMÍREZ, HFP ####[facility] (DEFAULT)[address] [place] [address] Urea nitrogen [Mass/Vol] 16 mg/dL Normal 7-25 [facility] Comment on above: Performed By: #### NATHANIEL RAMÍREZ, HFP ####[facility] (DEFAULT)[address] [place] [address] Urea nitrogen/Creatinine [Mass ratio] 13 mg/mg Normal [facility] Comment on above: Performed By: #### NATHANIEL RAMÍREZ, HFP ####[facility] (DEFAULT)[address] [place] [address] HEPATIC FUNCTION PANELon Albumin [Mass/Vol] 3.0 g/dL Low 3.5 - 5.0 g/dL [facility] ALP [Catalytic activity/Vol] 115 U/L 32 - 126 U/L [facility] ALT [Catalytic activity/Vol] 25 U/L 10 - 52 U/L [facility] AST [Catalytic activity/Vol] 31 U/L 10 - 39 U/L [facility] Bilirubin [Mass/Vol] 1.0 mg/dL NINF - 1.5 mg/dL [facility] Bilirubin.direct [Mass/Vol] 0.3 mg/dL High NINF - 0.3 mg/dL [facility] Protein [Mass/Vol] 6.3 g/dL Low 6.4 - 8.3 g/dL [facility] Albumin [Mass/Vol] 3.0 g/dL Low 3.5-5.0 [facility] Comment on above: Performed By: #### M MERLE CHM7, HFP ####[facility] (DEFAULT)[address] [facility] [place] [address] ALP [Catalytic activity/Vol] 115 U/L Normal 32-126 [facility] Comment on above: Performed By: #### M MERLE CHM7, HFP ####[facility] (DEFAULT)[address] [place] [address] ALT [Catalytic activity/Vol] 25 U/L Normal 10-52 [facility] Comment on above: Performed By: #### M MERLE CHM7, HFP ####[facility] (DEFAULT)[address] [place] [address] AST [Catalytic activity/Vol] 31 U/L Normal 10-39 [facility] Comment on above: Performed By: #### M MERLE, CHM7, HFP ####[facility] (DEFAULT)[address] [place] [address] Bilirubin [Mass/Vol] 1.0 mg/dL Normal <1.5 [facility] Comment on above: Performed By: #### NATHANIEL RAMÍREZ, HFP ####[facility] (DEFAULT)[address] [facility] [place] [address] Bilirubin.indirect [Mass/Vol] 0.3 mg/dL High <0.3 [facility] Comment on above: Performed By: #### NATHANIEL RAMÍREZ, HFP ####[facility] (DEFAULT)[address] [facility] [place] [address] Protein [Mass/Vol] 6.3 g/dL Low 6.4-8.3 [facility] Comment on above: Performed By: #### NATHANIEL RAMÍREZ, HFP ####[facility] (DEFAULT)[address] [facility] [place] [address] MAGNESIUMon 09-06-2023 Interpretation and review of laboratory results Normal [facility] Magnesium [Mass/Vol] 2.0 mg/dL 1.6 - 2 .6 mg/dL [facility] Magnesium [Mass/Vol] 2.0 mg/dL Normal 1.6-2.6 [facility] Comment on above: Performed By: #### NATHANIEL RAMÍREZ, HFP ####[facility] (DEFAULT)[address] [facility] [place] [address] No Panel Informationon 09-06 Interpretation and review of laboratory results Abnormal [facility] TACROLIMUS LEVEL, TROUGH (MS E DRUG LEVEL)on 09-06-2023 Interpretation and review of laboratory results Normal [facility] Tacrolimus (Bld) [Mass/Vol] 6.7 ng/mL [facility] Tacrolimus, Trough 6.7 ng/mL Normal Bone Susana ow Transplant: 4.0-12.0, Therapeutic: 5.0-15.0 [facility] Comment on above: Order Comment: Pleas e draw at specified interval PRIOR to dose. Do not hold dose to wait for level. Specimens batched twice per day, (M-F) and once per day weekendsMethod performed is a chemiluminescent microparticle immunoasssay on the [employer] i2000.The range is based on experience at [facility] and users should be aware that target concentrations vary widely depending on concomitant therapy, time post-transplant, and desired degree of immunosuppression. Performed By: #### T ACRO ####[facility] (DEFAULT)[address] [place] [address] CBC,PLATELETSon 09-05-2023 Erythrocyte distribution width (RBC) [Ratio] 13.5 % 10.9 - 14.3 % [facility] Hematocrit (Bld) [Volume fraction] 35.6 % Low 39.6 - 48.8 % [facility] Hemoglobin (Bld) [Mass/Vol] 11.4 g/dL Low 13.4 - 16.8 g/dL [facility] Interpretation and review of laboratory results Abnormal [facility] MCH (RBC) [Entitic mass] 27.5 pg 26.1 - 33.3 pg [facility] MCHC (RBC) [Mass/Vol] 32.0 g/dL 31.9 - 36.5 g/dL [facility] MCV (RBC) [Entitic vol] 86.0 fL 79.0 - 94.5 fL [facility] Platelet mean volume (Bld) [Entitic vol] 10.0 fL 8.7 - 12.3 fL [facility] Platelets (Bld) [#/Vol] 170 10*3/uL 146 - 337 K/uL [facility] RBC (Bld) [#/Vol] 4.14 10*6/uL Low [facility] WBC (Bld) [#/Vol] 4.24 10*3/uL 3.73 - 10. 10 K/uL [facility] Hematocrit (Bld) [Volume fraction] 35.6 % Low 39.6-48.8 [facility] Comment on above: Performed By: #### H [facility] ####[facility] (DEFAULT)[address] [place] [address] Hemoglobin (Bld) [Mass/Vol] 11.4 g/dL Low 13.4-16.8 [facility] Comment on above: Performed By: #### H EMOGC ####[facility] (DEFAULT)[address] [place] [address] MCV (RBC) [Entitic vol] 86.0 fL Normal 79.0-94.5 [facility] Comment on above: Performed By: #### H EMOGC ####[facility] (DEFAULT)[address] [place] [address] Mean Cell Hgb 27.5 pg Normal 26.1-33.3 [facility] Comment on above: Performed By: #### H EMOGC ####[facility] (DEFAULT)[address] [place] [address] Mean Cell Hgb Conc 32.0 g/dL Normal 31.9-36.5 [facility] Comment on above: Performed By: #### H EMOGC ####[facility] (DEFAULT)[address] [place] [address] Platelet mean volume (Bld) [Entitic vol] 10.0 fL Normal 8.7-12.3 [facility] Comment on above: Performed By: #### H EMOGC ####[facility] (DEFAULT)[address] [place] [address] Platelets (Bld) [#/Vol] 170 10*3/uL Normal 146-337 [facility] Comment on above: Performed By: #### H EMOGC ####[facility] (DEFAULT)[address] [place] [address] RBC (Bld) [#/Vol] 4.14 10*6/uL Low 4.38-5.83 [facility] Comment on above: Performed By: #### H EMOGC ####[facility] (DEFAULT)[address] [place] [address] RBC Distribution 13.5 % Normal 10.9-14.3 [facility] Comment on above: Performed By: #### H [facility] ####[facility] (DEFAULT)[address] [place] [address] WBC (Bld) [#/Vol] 4.24 10*3/uL Normal 3.73-10.10 [facility] Comment on above: Performed By: #### H [facility] ####[facility] (DEFAULT)[address] [place] [address] CHEM 7 (LYTES,BUN,CREA,GLUC) on 09-05-2023 Anion gap [Moles/Vol] 12 mmol/L 7 - 17 mmol/L [facility] Chloride [Moles/Vol] 107 mmol/L 98 - 10 8 mmol/L [facility] CO2 [Moles/Vol] 20 mmol/L Low 21 - 31 mmol/L [facility] Creatinine [Mass/Vol] 1.43 mg/dL High 0.70 - 1.30 mg/dL [facility] eGFR, CKD-EPI, Male 60 Low - PINF [facility] Glucose [Mass/Vol] 111 mg/dL High 70 - 99 mg/dL [facility] Osmolality Calc [Osmolality] 286 [facility] Potassium [Moles/Vol] 4.2 mmol/L 3.5 - 5.0 mmol/L [facility] Sodium [Moles/Vol] 135 mmol/L 135 - 145 mmol/L [facility] Urea nitrogen [Mass/Vol] 18 mg/dL 7 - 25 mg/dL [facility] Urea nitrogen/Creatinine [Mass ratio] 13 mg/mg [facility] Anion gap [Moles/Vol] 12 mmol/L Normal 7-17 [facility] Comment on above: Performed By: #### H FP, CHM7, MGO ####[facility] (DEFAULT)[address] [place] [address] Chloride [Moles/Vol] 107 mmol/L Normal 98-108 [facility] Comment on above: Performed By: #### H NATHANIEL MONCADA, MGO ####[facility] (DEFAULT)[address] [place] [address] CO2 [Moles/Vol] 20 mmol/L Low 21-31 [facility] Comment on above: Performed By: #### H NATHANIEL MONCADA, MGO ####[facility] (DEFAULT)[address] [place] [address] Creatinine [Mass/Vol] 1.43 mg/dL High 0.70-1.30 [facility] Comment on above: Performed By: #### H NATHANIEL MONCADA, MGO ####[facility] (DEFAULT)[address] [facility] [place] [address] GFR/1.73 sq M.predicted among non-blacks MDRD (S/P/Bld) [Vol rate/Area] 59 mL/min/{1.73_m2} Low >=60 [facility] Comment on above: Result Comment: Repo rted eGFR is based on the CKD-EPI 2020 equation using creatinine, age, and sex. Performed By: #### H NATHANIEL MONCADA, MGO ####[facility] (DEFAULT)[address] [facility] [place] [address] Glucose [Mass/Vol] 111 mg/dL High 70-99 [facility] Comment on above: Performed By: #### H NATHANIEL MONCADA, MGO ####[facility] (DEFAULT)[address] [place] [address] Osmolality [Osmolality] 286 mosm/kg Normal 278-305 [facility] Comment on above: Performed By: #### H NATHANIEL MONCADA, MGO ####[facility] (DEFAULT)[address] [place] [address] Potassium [Moles/Vol] 4.2 mmol/L Normal 3.5-5.0 [facility] Comment on above: Performed By: #### H ANTWAN, CHM7, MGO ####[facility] (DEFAULT)[address] [place] [address] Sodium [Moles/Vol] 135 mmol/L Normal 135-145 [facility] Comment on above: Performed By: #### H ANTWAN, CHM7, MGO ####[facility] (DEFAULT)[address] [facility] [place] [address] Urea nitrogen [Mass/Vol] 18 mg/dL Normal 7-25 [facility] Comment on above: Performed By: #### H ANTWAN, CHM7, MGO ####[facility] (DEFAULT)[address] [facility] [place] [address] Urea nitrogen/Creatinine [Mass ratio] 13 mg/mg Normal [facility] Comment on above: Performed By: #### H ANTWAN, CHM7, MGO ####[facility] (DEFAULT)[address] [facility] [place] [address] CONTINUOUS CARDIAC MONITORIN G STRIPon 09-05-2023 [facility] HEPATIC FUNCTION PANELon Albumin [Mass/Vol] 2.8 g/dL Low 3.5 - 5.0 g/dL [facility] ALP [Catalytic activity/Vol] 103 U/L 32 - 126 U/L [facility] ALT [Catalytic activity/Vol] 26 U/L 10 - 52 U/L [facility] AST [Catalytic activity/Vol] 38 U/L 10 - 39 U/L [facility] Bilirubin [Mass/Vol] 0.9 mg/dL [facility] 1.[facility] mg/dL [facility] Bilirubin.direct [Mass/Vol] 0.1 mg/dL NINF - 0.3 mg/dL [facility] Protein [Mass/Vol] 6.1 g/dL Low 6.4 - 8.3 g/dL [facility] Albumin [Mass/Vol] 2.8 g/dL Low 3.5-5.0 [facility] Comment on above: Performed By: #### H FP, CHM7, MGO ####[facility] (DEFAULT)[address] [place] [address] ALP [Catalytic activity/Vol] 103 U/L Normal 32-126 [facility] Comment on above: Performed By: #### H FP, CHM7, MGO ####[facility] (DEFAULT)[address] [place] [address] ALT [Catalytic activity/Vol] 26 U/L Normal 10-52 [facility] Comment on above: Performed By: #### H FP, CHM7, MGO ####[facility] (DEFAULT)[address] [place] [address] AST [Catalytic activity/Vol] 38 U/L Normal 10-39 [facility] Comment on above: Performed By: #### H FP, CHM7, MGO ####[facility] (DEFAULT)[address] [place] [address] Bilirubin [Mass/Vol] 0.9 mg/dL Normal <1.5 [facility] Comment on above: Performed By: #### H FP, CHM7, MGO ####[facility] (DEFAULT)[address] [place] [address] Bilirubin.indirect [Mass/Vol] 0.1 mg/dL Normal <0.3 [facility] Comment on above: Performed By: #### H FP, CHM7, MGO ####[facility] (DEFAULT)[address] [place] [address] Protein [Mass/Vol] 6.1 g/dL Low 6.4-8.3 [facility] Comment on above: Performed By: #### H FP, CHM7, MGO ####[facility] (DEFAULT)[address] [place] [address] HISTOPLASMA ANTIGEN, FLUIDon 09-05-2023 FH SOURCE BAL RML [facility] Histo FLD interpretation Negative [facility] Histoplasma Antigen, FLUID Not detected ng/mL [facility] HISTOPLASMA CAPSULATUM/BLAST OMYCES SPECIES,PCR FLUIDon 09-05-2023 HISTO/BLASTO RESULT Negative Not Applicable [facility] Specimen source Nom (Unsp spec) BAL RML [facility] IMMUNOPHENOTYPING, TISSUE/FL UIDon 09-05-2023 BKR DX CODE Use Ordering [facility] Flow Interpretation See Comment [facility] Flow Interpreted by: Yossi Perla MD, PhD [facility] MAGNESIUMon 09-05-2023 Interpretation and review of laboratory results Normal [facility] Magnesium [Mass/Vol] 1.7 mg/dL 1.6 - 2 .6 mg/dL [facility] Magnesium [Mass/Vol] 1.7 mg/dL Normal 1.6-2.6 [facility] Comment on above: Performed By: #### H , M7, MGO ####[facility] (DEFAULT)[address] [place] [address] No Panel Informationon 09-05 Interpretation and review of laboratory results Abnormal [facility] TACROLIMUS LEVEL, TROUGH (MS E DRUG LEVEL)Ordered By: Raymundo Mehta on 09-05-2023 Interpretation and review of laboratory results Normal [facility] Tacrolimus (Bld) [Mass/Vol] 5.3 ng/mL [facility] TACROLIMUS LEVEL, TROUGH (MS E DRUG LEVEL)on 09-05-2023 Tacrolimus, Trough 5.3 ng/mL Normal Bone Susana ow Transplant: 4.0-12.0, Therapeutic: 5.0-15.0 [facility] Comment on above: Order Comment: Pleas e draw at specified interval PRIOR to dose. Do not hold dose to wait for level. Specimens batched twice per day, (M-F) and once per day weekendsMethod performed is a chemiluminescent microparticle immunoasssay on the [employer] i2000.The range is based on experience at [facility] and users should be aware that target concentrations vary widely depending on concomitant therapy, time post-transplant, and desired degree of immunosuppression. Performed By: #### T ACRO ####[facility] (DEFAULT)[address] [place] [address] ARTERIAL BLOOD GAS (FULL GOSS EL)on 09-04-2023 Base excess Calc (Bld) [Moles/Vol] -1.2000 mmol/L -3.0 - 3.0 mmol/L [facility] Calcium.ionized (Bld) [Mass/Vol] 4.79 mg/dL 4.60 - 5.30 mg/dL [facility] Carboxyhemoglobin (Bld) [Mass fraction] 0.7 % NINF - 1.5 % [facility] CO2 (Bld) [Partial pressure] 30 mm[Hg] Low [facility] Glucose [Mass/Vol] 159 mg/dL High 70 - 99 mg/dL [facility] HCO3 (Bld) [Moles/Vol] 22 mmol/L 22 - 28 mmol/L [facility] Hematocrit (Bld) [Volume fraction] 38.0 % Low 40.2 - 50.4 % [facility] Hemoglobin (Bld) [Mass/Vol] 12.6 g/dL Low 13.4 - 16.8 g/dL [facility] Interpretation and review of laboratory results Abnormal [facility] Lactate [Moles/Vol] 2.0 mmol/L High 0.5 - 1. 6 mmol/L [facility] Methemoglobin (Bld) [Mass fraction] 0.0 % NINF - 1.5 % [facility] Oxygen (Bld) [Partial pressure] 62 mm[Hg] Low [facility] Oxygen saturation in Blood 92 % Low 94 - 98 % [facility] Oxyhemoglobin 91 % Low 94 - 98 % [facility] pH (Bld) 7.48 [pH] High 7.35 - 7.45 [facility] Potassium [Moles/Vol] 4.2 mmol/L 3.5 - 5.0 mmol/L [facility] Sodium [Moles/Vol] 130 mmol/L Low 135 - 145 mmol/L [facility] Specimen source Nom (Unsp spec) Arterial [facility] Base Excess -1.2 mmol/L Normal -3.0-3.0 [facility] Comment on above: Performed By: #### G YASMINE ####[facility] (DEFAULT)[address] [place] [address], [place] [address] Carboxyhemoglobin 0.7 % Normal <=1.5 [facility] Comment on above: Performed By: #### Vale UNDERWOOD ####[facility] (DEFAULT)[address] [place] [address], [place] [address] Glucose [Mass/Vol] 159 mg/dL High 70-99 [facility] Comment on above: Performed By: #### Vale UNDERWOOD ####[facility] (DEFAULT)[address] [place] [address], [place] [address] HCO3 (Bld) [Moles/Vol] 22 mmol/L Normal 22-28 [facility] Comment on above: Performed By: #### G YASMINE ####[facility] (DEFAULT)[address] [place] [address], [place] [address] Hematocrit (Bld) [Volume fraction] 38.0 % Low 40.2-50.4 [facility] Comment on above: Performed By: #### G YASMINE ####[facility] (DEFAULT)[address] [place] [address], [place] [address] Hemoglobin (Bld) [Mass/Vol] 12.6 g/dL Low 13.4-16.8 [facility] Comment on above: Performed By: #### G ASALL ####[facility] (DEFAULT)[address] [place] [address] Ionized Calcium, Whole Blood 4.79 mg/dL Normal 4.60-5.30 [facility] Comment on above: Performed By: #### Vale UNDERWOOD ####[facility] (DEFAULT)[address] [place] [address] Lactate, Whole Blood 2.0 mmol/L High 0.5-1.6 [facility] Comment on above: Performed By: #### Vale UNDERWOOD ####[facility] (DEFAULT)[address] [place] [address] Methemoglobin 0.0 % Normal <=1.5 [facility] Comment on above: Performed By: #### Vale UNDERWOOD ####[facility] (DEFAULT)[address] [place] [address] Oxyhemoglobin 91 % Low 94-98 [facility] Comment on above: Performed By: #### Vale UNDERWOOD ####[facility] (DEFAULT)[address] [place] [address] pCO2 30 mm Hg Low 32-48 [facility] Comment on above: Performed By: #### Vale UNDERWOOD ####[facility] (DEFAULT)[address] [place] [address] pH (Bld) 7.48 [pH] High 7.35-7.45 [facility] Comment on above: Performed By: #### Vale UNDERWOOD ####[facility] (DEFAULT)[address] [place] [address] pO2 62 mm Hg Low 83-108 [facility] Comment on above: Performed By: #### Vale UNDERWOOD ####[facility] (DEFAULT)[address] [place] [address] Potassium [Moles/Vol] 4.2 mmol/L Normal 3.5-5.0 [facility] Comment on above: Performed By: #### Vale UNDERWOOD ####[facility] (DEFAULT)[address] [facility] [place] [address] sO2 92 % Low 94-98 [facility] Comment on above: Performed By: #### G YASMINE ####[facility] (DEFAULT)[address] [facility] [place] [address] Sodium [Moles/Vol] 130 mmol/L Low 135-145 [facility] Comment on above: Performed By: #### G YASMINE ####[facility] (DEFAULT)[address] [facility] [place] [address] Specimen type Nom (Spec) Arterial Normal [facility] Comment on above: Performed By: #### G YASMINE ####[facility] (DEFAULT)[address] [facility] [place] [address] Bacteria identified Respirat ory culture Nom (Unsp spec)on 09-04-2023 Bacteria identified Cx Nom (Unsp spec) NO GROWTH DAY 2 OF 2 [facility] Microscopic observation Other stain Nom (Unsp spec) Cytocentrifuge preparation [facility] Microscopic observation Other stain Nom (Unsp spec) Neutrophils, Rare [facility] Microscopic observation Other stain Nom (Unsp spec) Red Blood Cells Present [facility] Microscopic observation Other stain Nom (Unsp spec) No organisms seen [facility] Bacteria identified Respirat ory culture Nom (Unsp spec)Ordered By: Jose Salgado on 09-04-2023 Bacteria identified Cx Nom (Unsp spec) NO GROWTH DAY 2 OF 2 [facility] Microscopic observation Other stain Nom (Unsp spec) Cytocentrifuge preparation [facility] Microscopic observation Other stain Nom (Unsp spec) Neutrophils, Moderate [facility] Microscopic observation Other stain Nom (Unsp spec) Red Blood Cells Present [facility] Microscopic observation Other stain Nom (Unsp spec) No organisms seen [facility] CBC,PLATELETSon 09-04-2023 Erythrocyte distribution width (RBC) [Ratio] 13.2 % 10.9 - 14.3 % [facility] Hematocrit (Bld) [Volume fraction] 38.7 % Low 39.6 - 48.8 % [facility] Hemoglobin (Bld) [Mass/Vol] 12.3 g/dL Low 13.4 - 16.8 g/dL [facility] Interpretation and review of laboratory results Abnormal [facility] MCH (RBC) [Entitic mass] 27.9 pg 26.1 - 33.3 pg [facility] MCHC (RBC) [Mass/Vol] 31.8 g/dL Low 31.9 - 36.5 g/dL [facility] MCV (RBC) [Entitic vol] 87.8 fL 79.0 - 94.5 fL [facility] Platelet mean volume (Bld) [Entitic vol] 9.8 fL 8.7 - 12.3 fL [facility] Platelets (Bld) [#/Vol] 173 10*3/uL 146 - 337 K/uL [facility] RBC (Bld) [#/Vol] 4.41 10*6/uL [facility] WBC (Bld) [#/Vol] 4.57 10*3/uL 3.73 - 10. 10 K/uL [facility] Hematocrit (Bld) [Volume fraction] 38.7 % Low 39.6-48.8 [facility] Comment on above: Performed By: #### [facility] ####[facility] (DEFAULT)[address] [place] [address] Hemoglobin (Bld) [Mass/Vol] 12.3 g/dL Low 13.4-16.8 [facility] Comment on above: Performed By: #### [facility] ####[facility] (DEFAULT)[address] [place] [address] MCV (RBC) [Entitic vol] 87.8 fL Normal 79.0-94.5 [facility] Comment on above: Performed By: #### [facility] ####[facility] (DEFAULT)[address] [place] [address] Mean Cell Hgb 27.9 pg Normal 26.1-33.3 [facility] Comment on above: Performed By: #### H EMOGC ####[facility] (DEFAULT)[address] [place] [address] Mean Cell Hgb Conc 31.8 g/dL Low 31.9-36.5 [facility] Comment on above: Performed By: #### H EMOGC ####[facility] (DEFAULT)[address] [place] [address] Platelet mean volume (Bld) [Entitic vol] 9.8 fL Normal 8.7-12.3 [facility] Comment on above: Performed By: #### H EMOGC ####[facility] (DEFAULT)[address] [place] [address] Platelets (Bld) [#/Vol] 173 10*3/uL Normal 146-337 [facility] Comment on above: Performed By: #### H EMOGC ####[facility] (DEFAULT)[address] [place] [address] RBC (Bld) [#/Vol] 4.41 10*6/uL Normal 4.38-5.83 [facility] Comment on above: Performed By: #### H EMOGC ####[facility] (DEFAULT)[address] [place] [address] RBC Distribution 13.2 % Normal 10.9-14.3 [facility] Comment on above: Performed By: #### H EMOGC ####[facility] (DEFAULT)[address] [place] [address] WBC (Bld) [#/Vol] 4.57 10*3/uL Normal 3.73-10.10 [facility] Comment on above: Performed By: #### H EMOGC ####[facility] (DEFAULT)[address] [place] [address] CHEM 7 (LYTES,BUN,CREA,GLUC) on 09-04-2023 Anion gap [Moles/Vol] 16 mmol/L 7 - 17 mmol/L [facility] Chloride [Moles/Vol] 104 mmol/L 98 - 10 8 mmol/L [facility] CO2 [Moles/Vol] 18 mmol/L Low 21 - 31 mmol/L [facility] Creatinine [Mass/Vol] 1.22 mg/dL 0.70 - 1.30 mg/dL [facility] eGFR, CKD-EPI, Male 71 - [facility] Glucose [Mass/Vol] 124 mg/dL High 70 - 99 mg/dL [facility] Osmolality Calc [Osmolality] 284 [facility] Potassium [Moles/Vol] 3.9 mmol/L 3.5 - 5.0 mmol/L [facility] Sodium [Moles/Vol] 134 mmol/L Low 135 - 145 mmol/L [facility] Urea nitrogen [Mass/Vol] 15 mg/dL 7 - 25 mg/dL [facility] Urea nitrogen/Creatinine [Mass ratio] 12 mg/mg [facility] Anion gap [Moles/Vol] 16 mmol/L Normal 7-17 [facility] Comment on above: Performed By: #### TJ RAMÍREZ7, HFP ####[facility] (DEFAULT)[address] [place] [address] Chloride [Moles/Vol] 104 mmol/L Normal 98-108 [facility] Comment on above: Performed By: #### Rod BLOOM CHM7, HFP ####[facility] (DEFAULT)[address] [place] [address] CO2 [Moles/Vol] 18 mmol/L Low 21-31 [facility] Comment on above: Performed By: #### Rod BLOOM CHM7, HFP ####[facility] (DEFAULT)[address] [place] [address] Creatinine [Mass/Vol] 1.22 mg/dL Normal 0.70-1.30 [facility] Comment on above: Performed By: #### NATHANIEL RAMÍREZ, HFP ####[facility] (DEFAULT)[address] [place] [address] GFR/1.73 sq M.predicted among non-blacks MDRD (S/P/Bld) [Vol rate/Area] 71 mL/min/{1.73_m2} Normal >=60 [facility] Comment on above: Result Comment: Repo rted eGFR is based on the CKD-EPI 2020 equation using creatinine, age, and sex. Performed By: #### NATHANIEL RAMÍREZ, HFP ####[facility] (DEFAULT)[address] [place] [address] Glucose [Mass/Vol] 124 mg/dL High 70-99 [facility] Comment on above: Performed By: #### NATHANIEL RAMÍREZ, HFP ####[facility] (DEFAULT)[address] [place] [address] Osmolality [Osmolality] 284 mosm/kg Normal 278-305 [facility] Comment on above: Performed By: #### NATHANIEL RAMÍREZ, HFP ####[facility] (DEFAULT)[address] [place] [address] Potassium [Moles/Vol] 3.9 mmol/L Normal 3.5-5.0 [facility] Comment on above: Performed By: #### NATHANIEL RAMÍREZ, HFP ####[facility] (DEFAULT)[address] [place] [address] Sodium [Moles/Vol] 134 mmol/L Low 135-145 [facility] Comment on above: Performed By: #### NATHANIEL RAMÍREZ, HFP ####[facility] (DEFAULT)[address] [place] [address] Urea nitrogen [Mass/Vol] 15 mg/dL Normal 7-25 [facility] Comment on above: Performed By: #### M NATHANIEL BLOOM, HFP ####[facility] (DEFAULT)[address] [place] [address] Urea nitrogen/Creatinine [Mass ratio] 12 mg/mg Normal [facility] Comment on above: Performed By: #### M NATHANIEL BLOOM, HFP ####[facility] (DEFAULT)[address] [place] [address] CMV PCR,FLUIDS,URINE,EYE ETC on 09-04-2023 Specimen source Nom (Unsp spec) BAL LLL [facility] Specimen source Nom (Unsp spec) BAL RML [facility] HEPATIC FUNCTION PANELon Albumin [Mass/Vol] 3.0 g/dL Low 3.5 - 5.0 g/dL [facility] ALP [Catalytic activity/Vol] 112 U/L 32 - 126 U/L [facility] ALT [Catalytic activity/Vol] 22 U/L 10 - 52 U/L [facility] AST [Catalytic activity/Vol] 30 U/L 10 - 39 U/L [facility] Bilirubin [Mass/Vol] 1.2 mg/dL NINF - 1.5 mg/dL [facility] Bilirubin.direct [Mass/Vol] 0.4 mg/dL High NINF - 0.3 mg/dL [facility] Protein [Mass/Vol] 6.4 g/dL 6.4 - 8.3 g/dL [facility] Albumin [Mass/Vol] 3.0 g/dL Low 3.5-5.0 [facility] Comment on above: Performed By: #### M NATHANIEL BLOOM, HFP ####[facility] (DEFAULT)[address] [place] [address] ALP [Catalytic activity/Vol] 112 U/L Normal 32-126 [facility] Comment on above: Performed By: #### M NATHANIEL BLOOM, HFP ####[facility] (DEFAULT)[address] [place] [address] ALT [Catalytic activity/Vol] 22 U/L Normal 10-52 [facility] Comment on above: Performed By: #### NATHANIEL RAMÍREZ, HFP ####[facility] (DEFAULT)[address] [place] [address] AST [Catalytic activity/Vol] 30 U/L Normal 10-39 [facility] Comment on above: Performed By: #### NATHANIEL RAMÍREZ, HFP ####[facility] (DEFAULT)[address] [place] [address] Bilirubin [Mass/Vol] 1.2 mg/dL Normal <1.5 [facility] Comment on above: Performed By: #### NATHANIEL RAMÍREZ, HFP ####[facility] (DEFAULT)[address] [place] [address] Bilirubin.indirect [Mass/Vol] 0.4 mg/dL High <0.3 [facility] Comment on above: Performed By: #### NATHANIEL RAMÍREZ, HFP ####[facility] (DEFAULT)[address] [place] [address] Protein [Mass/Vol] 6.4 g/dL Normal 6.4-8.3 [facility] Comment on above: Performed By: #### NATHANIEL RAMÍREZ, HFP ####[facility] (DEFAULT)[address] [place] [address] LEGIONELLA PCRon 09-04-2023 Legionella sp rRNA Probe Ql (Unsp spec) Negative Not Applicable [facility] Specimen source Nom (Unsp spec) BAL RML [facility] - Microbiology an d Antimicrobial susceptibilityon 09-04-2023 CMV DNA ESTELITA+probe Ql (Unsp spec) Negative Negative [facility] MAGNESIUMon 09-04-2023 Magnesium [Mass/Vol] 1.4 mg/dL Low 1.6 - 2 .6 mg/dL [facility] Magnesium [Mass/Vol] 1.4 mg/dL Low 1.6-2.6 [facility] Comment on above: Performed By: #### M , CHM7, [facility] ####[facility] (DEFAULT)[address] [place] [address] No Panel Informationon 09-04 Annotation comment [Interpretation] Narrative DNR [facility] PN Report Status DNR [facility] Pneumocystis jiroveci,PCR result Negative Not Applicable [facility] Interpretation and review of laboratory results Abnormal [facility] PNEUMOCYSTIS JIROVECI,PCRon 09-04-2023 Specimen source Nom (Unsp spec) BAL LLL [facility] Specimen source Nom (Unsp spec) BAL RML [facility] Portable XR Chest Viewson RADIOLOGY RADIOLOGY [facility] Radiology Study observation (narrative) [facility] Portable XR Chest ViewsOrder ed By: Joanie Nugent on 09-04-2023 [facility] Work Phone: TACROLIMUS LEVEL, TROUGH (MS E DRUG LEVEL)on 09-04-2023 Interpretation and review of laboratory results Abnormal [facility] Tacrolimus (Bld) [Mass/Vol] 3.6 ng/mL Low [facility] Tacrolimus, Trough 3.6 ng/mL Low Bone Susana ow Transplant: 4.0-12.0, Therapeutic: 5.0-15.0 [facility] Comment on above: Order Comment: Pleas e draw at specified interval PRIOR to dose. Do not hold dose to wait for level. Specimens batched twice per day, (M-F) and once per day weekendsMethod performed is a chemiluminescent microparticle immunoasssay on the [employer] i2000.The range is based on experience at [facility] and users should be aware that target concentrations vary widely depending on concomitant therapy, time post-transplant, and desired degree of immunosuppression. Performed By: #### T ACRO ####[facility] (DEFAULT)[address] [place] [address] XR CHEST PORTABLEon 09-04-20 XR CHEST PORTABLE Normal [facility] ASPERGILLUS ANTIGEN, BALon 1 Galactomannan Ag IA Qn (Unsp spec) <0.500 NINF [facility] Galactomannan Ag IA Qn (Unsp spec) <0.500 NINF [facility] BAL CONSULTOrdered By: Noa Peralta on 09-03-2023 ALVEOLAR MACROPHAGES 32 % [facility] Work Phone: Bal comments Correlation with microbiology stains and cultures is recommended. [facility] Work Phone: Bal Diff Quik Stain Quality Check Acceptable [facility] Work Phone: BKR BAL INTERPRETATION Cellular specimen comprised of alveolar macrophages and small lymphocytes. No definitive microorganisms are observed. Moderate degenerative changes. [facility] Work Phone: BKR DX CODE Use Ordering [facility] Work Phone: Eosinophils Patterson stain Ql (Unsp spec) 0 % [facility] Work Phone: Lymphocytes/100 WBC (Bld) 57 % [facility] Work Phone: Neutrophils/100 WBC Manual cnt (Bronch spec) 11 % [facility] Work Phone: Pathologist review Jame (Unsp spec) [Interp] Leonardo Peralta MD [facility] Work Phone: [facility] Work Phone: BAL CONSULTon 09-03-2023 ALVEOLAR MACROPHAGES 33 % [facility] Bal comments Correlation with microbiology stains and cultures is recommended. Correlation with viral studies is recommended. [facility] Bal Diff Quik Stain Quality Check Acceptable [facility] BKR BAL INTERPRETATION Cellular specimen comprised of alveolar macrophages and small lymphocytes. No definitive microorganisms are observed. Rare degenerating cells with changes suggestive of viral cytopathic effect are noted. Moderate degenerative changes. [facility] BKR DX CODE Use Ordering [facility] Eosinophils Patterson stain Ql (Unsp spec) 0 % [facility] Lymphocytes/100 WBC (Bld) 49 % [facility] Neutrophils/100 WBC Manual cnt (Bronch spec) 18 % [facility] Pathologist review Jame (Unsp spec) [Interp] Leonardo Peralta MD [facility] BRONCHOSCOPYon 09-03-2023 LAB, [facility] CBC,PLATELETSon 09-03-2023 Erythrocyte distribution width (RBC) [Ratio] 13.4 % 10.9 - 14.3 % [facility] Hematocrit (Bld) [Volume fraction] 39.6 % 39.6 - 48.8 % [facility] Hemoglobin (Bld) [Mass/Vol] 12.8 g/dL Low 13.4 - 16.8 g/dL [facility] Interpretation and review of laboratory results Abnormal [facility] MCH (RBC) [Entitic mass] 27.8 pg 26.1 - 33.3 pg [facility] MCHC (RBC) [Mass/Vol] 32.3 g/dL 31.9 - 36.5 g/dL [facility] MCV (RBC) [Entitic vol] 85.9 fL 79.0 - 94.5 fL [facility] Platelet mean volume (Bld) [Entitic vol] 9.4 fL 8.7 - 12.3 fL [facility] Platelets (Bld) [#/Vol] 222 10*3/uL 146 - 337 K/uL [facility] RBC (Bld) [#/Vol] 4.61 10*6/uL [facility] WBC (Bld) [#/Vol] 4.36 10*3/uL 3.73 - 10. 10 K/uL [facility] Hematocrit (Bld) [Volume fraction] 39.6 % Normal 39.6-48.8 [facility] Comment on above: Performed By: #### H EMOGC ####[facility] (DEFAULT)[address] [place] [address] Hemoglobin (Bld) [Mass/Vol] 12.8 g/dL Low 13.4-16.8 [facility] Comment on above: Performed By: #### H EMOGC ####[facility] (DEFAULT)[address] [place] [address] MCV (RBC) [Entitic vol] 85.9 fL Normal 79.0-94.5 [facility] Comment on above: Performed By: #### H EMOGC ####[facility] (DEFAULT)[address] [place] [address] Mean Cell Hgb 27.8 pg Normal 26.1-33.3 [facility] Comment on above: Performed By: #### H EMOGC ####[facility] (DEFAULT)[address] [place] [address] Mean Cell Hgb Conc 32.3 g/dL Normal 31.9-36.5 [facility] Comment on above: Performed By: #### H EMOGC ####[facility] (DEFAULT)[address] [place] [address] Platelet mean volume (Bld) [Entitic vol] 9.4 fL Normal 8.7-12.3 [facility] Comment on above: Performed By: #### H EMOGC ####[facility] (DEFAULT)[address] [place] [address] Platelets (Bld) [#/Vol] 222 10*3/uL Normal 146-337 [facility] Comment on above: Performed By: #### H EMOGC ####[facility] (DEFAULT)[address] [place] [address] RBC (Bld) [#/Vol] 4.61 10*6/uL Normal 4.38-5.83 [facility] Comment on above: Performed By: #### [facility] ####[facility] (DEFAULT)[address] [place] [address] RBC Distribution 13.4 % Normal 10.9-14.3 [facility] Comment on above: Performed By: #### H [facility] ####[facility] (DEFAULT)[address] [place] [address] WBC (Bld) [#/Vol] 4.36 10*3/uL Normal 3.73-10.10 [facility] Comment on above: Performed By: #### [facility] ####[facility] (DEFAULT)[address] [place] [address] CHEM 7 (LYTES,BUN,CREA,GLUC) on 09-03-2023 Anion gap [Moles/Vol] 12 mmol/L 7 - 17 mmol/L [facility] Chloride [Moles/Vol] 104 mmol/L 98 - 10 8 mmol/L [facility] CO2 [Moles/Vol] 24 mmol/L 21 - 31 mmol/L [facility] Creatinine [Mass/Vol] 1.20 mg/dL 0.70 - 1.30 mg/dL [facility] eGFR, CKD-EPI, Male 73 - [facility]F [facility] Glucose [Mass/Vol] 112 mg/dL High 70 - 99 mg/dL [facility] Osmolality Calc [Osmolality] 288 [facility] Potassium [Moles/Vol] 4.1 mmol/L 3.5 - 5.0 mmol/L [facility] Sodium [Moles/Vol] 136 mmol/L 135 - 145 mmol/L [facility] Urea nitrogen [Mass/Vol] 17 mg/dL 7 - 25 mg/dL [facility] Urea nitrogen/Creatinine [Mass ratio] 14 mg/mg [facility] Anion gap [Moles/Vol] 12 mmol/L Normal 7-17 [facility] Comment on above: Performed By: #### M NATHANIEL BLOOM, HFP ####[facility] (DEFAULT)[address] [place] [address] Chloride [Moles/Vol] 104 mmol/L Normal 98-108 [facility] Comment on above: Performed By: #### M NATHANIEL BLOOM, HFP ####[facility] (DEFAULT)[address] [place] [address] CO2 [Moles/Vol] 24 mmol/L Normal 21-31 [facility] Comment on above: Performed By: #### M NATHANIEL BLOOM, HFP ####[facility] (DEFAULT)[address] [place] [address] Creatinine [Mass/Vol] 1.20 mg/dL Normal 0.70-1.30 [facility] Comment on above: Performed By: #### NATHANIEL RAMÍREZ, HFP ####[facility] (DEFAULT)[address] [facility] [place] [address] GFR/1.73 sq M.predicted among non-blacks MDRD (S/P/Bld) [Vol rate/Area] 73 mL/min/{1.73_m2} Normal >=60 [facility] Comment on above: Result Comment: Repo rted eGFR is based on the CKD-EPI 2020 equation using creatinine, age, and sex. Performed By: #### M NATHANIEL BLOOM, HFP ####[facility] (DEFAULT)[address] [place] [address] Glucose [Mass/Vol] 112 mg/dL High 70-99 [facility] Comment on above: Performed By: #### NATHANIEL RAMÍREZ, HFP ####[facility] (DEFAULT)[address] [place] [address] Osmolality [Osmolality] 288 mosm/kg Normal 278-305 [facility] Comment on above: Performed By: #### M NATHANIEL BLOOM, HFP ####[facility] (DEFAULT)[address] [place] [address] Potassium [Moles/Vol] 4.1 mmol/L Normal 3.5-5.0 [facility] Comment on above: Performed By: #### M MERLE CHM7, HFP ####[facility] (DEFAULT)[address] [place] [address] Sodium [Moles/Vol] 136 mmol/L Normal 135-145 [facility] Comment on above: Performed By: #### M HELEN BLOOMM7, HFP ####[facility] (DEFAULT)[address] [place] [address] Urea nitrogen [Mass/Vol] 17 mg/dL Normal 7-25 [facility] Comment on above: Performed By: #### Rod BLOOM CHM7, HFP ####[facility] (DEFAULT)[address] [place] [address] Urea nitrogen/Creatinine [Mass ratio] 14 mg/mg Normal [facility] Comment on above: Performed By: #### Rod BLOOM CHM7, HFP ####[facility] (DEFAULT)[address] [place] [address] CYTOLOGY, NON-GYNOrdered By: Sherice Jimenez on 09-03-2023 CYTOLOGIC DIAGNOSIS [id number]Y cZHBecKBgQ0AfbhcpIYxsYT0eGV 6cmIjhyYFafIRsMRUxRwUos4bcr 305lUQhd9abJCFYpsmemYj8g6bb GWHGhD7ju1v5uO96SAJubC4jcTK mWRzskeZwPTupkvIeogVsBbx8SE T5jEydMeallWL1fABszYS0HSjml 2MtpUqwuJemIAW1GXUaNngjZFfj rMK8uKSqjZmwwTBqOR9jh6dmsOT 9khIdLKX6rEqviDJ2cIuzcpgjb0 hpeGA8sBR6NZkibGV8TSgeGfEzK 1bnWOWhfF2rF77xQ0wrLSPqwMxu PIiaLIRtqXR4POT7PPJws0sdBHB eeCIchRGzNpYmNEpxEaw4t1fbSC YmqH26yFCjzzF9jIzuDLwnyNZ7P S81UTivm8DjILJkaIlnXZMfbB6y YzIzXGxldmVsbmZjbjIzXGxldmV jecMtQGzqsjJrq4KsdfYquVA0TN pjclRdqZH1oDssLABpD2A5K676H FumriFmvqWuPxTanih8OXKgnOoi bGlzdGxldmVsXGxldmVsbmZjMjN aqXD2PYqyEdXuEvZoyZS0OVytCl BpwTK6WNoptATpwEH5GOvktAQ9I Eb6MNr5TAguPCedGie7aRakqET2 AWutfW5qWZAxK12kAsW9w5tihMI 0wWT2BOtwzWN3SOucMfFoH5zaSG SgaV7wD98zE9isKRQstOmdQCovI QTeoYJ1BRV1SQFhg6mfTXFyoNRu fNSqEhIkVCenZfo0m5hiVPWblY8 4dIJihjA2mAmiIM96EWemw7FgSS XilJqpLHWsdN0oUhCbCAyrmrMpw mZjbjIzXGxldmVsamMwXGxldmVs s2QicxVuuVM0MTzcppJcjBW8jIb iSZYyJ6R7U475CJwrlnYioqGjMl Isypm1BNCgwJvcxRsvxAxtscTcJ XqrnjPtwnLwDnJalVC0VObfTvVd WfBxvYR1WXvrFsNvdTC5KMtzbYB ftYY4BVoxgLM5DBh3LBt0OVtiAI auWhn9rOyrbDO8BBfcpT6oUPFrN 32rAiY7k7cyrHN5xSZ2CAxejMU5 OFlsYmUyE1cwOOOueA8tK23eY5m aFZVblLfsJNulQOLflLY8BEL2UO Jli1gaKFRkrKYepEQxGmJoVNjxW os3q9fmCPGxxB96xQPuvtJ3gSvt YG05PMgxg2LqYZLmqGstCSYbjL6 mYzIzXGxldmVsbmZjbjIzXGxldm OaurNrTGogywWlh9NwrrJntIM5K OkedfCdjGW1yCehQZGwV7O3B784 BUupmqGdpkWzKrZsiip1QNAehZt cbGlzdGxldmVsXGxldmVsbmZjMj ZhjIH1PIxrOaUhTpWxpXK3UNppW mPorXF9TRizlPIazIM0PQekmTV8 ZCp1IJz8HPwsSXysDwf7gDjuyAE 2VDuqwA4sPGHlG06jZmF8cE06TV wmhKoymP02YHOgeJKsaSJcoZR5E FyfbSnwmX48YUFybLBuQLzlq3Qs QEXgBfG5MWB9FIYmlXzgoE53ZHO xnSJhK901rxDaLNyeLW96LMEccU YrdwKvNgYvVPKgwHMvsGX6ZNWkN C1dsqsoJLwyRKvwLGZqymS7GDNp bIZbB4RkBQFlEP6yyiqoVDP5QWt wSWPsOVR8OnJfWTExy6Unynf2Iw ZvjRb8z2gyMCLtFLGtqAiix6urJ SL7GSIbvMNmG6wllN3bRFAnYV8q topwu3pwAJprCWkeDLTvkOL6emV 5YTVucINgW6VyeM3tLXGnMKGrqq EtfJhxdH7yOkjvtkKnTWZbLDMTX eLFIp6LG5fSMQgIBM7XYPLgUWNH RDkBTXLPHVIDRLvZW3EIMYsUDvO jHOBrOFBoB9pDB6aDS1esTlsnPk IxQZafWZVsGmShD0ApSUTzwbgnP JVeKQKZRD3ZPNGKHBWBDn0ZUJE7 ATEjcchfrAN2WCrzkyFqcRr4uKS rlUtqsC8gNnchxvDsHZIgAEKPlp VKLRwjA42vxmNmE2RyaTOeLCWxN EpuCG83fOFmSBAtyLNcIIo7aB6l LEyckQilhuUXbEGgvQ5hvlvpADf jZjBccGFyXGxpMFxsczBccGFyfQ == [facility] Work Phone: Case Report [facility] Work Phone: Clinical History k9cqvUEaIZQrrTDpKUQl B3fceoJ xQCVmkMHzC9KhpanpNFacPX4gQL 8qySwevLUxlTDkIYVnPySvp2tux 884gAXjl7kmIWUXfkbioOi8fTsy W94bm9P1QowsJ7nrJNCpHRttXEZ wJEdokUNgHIq7BQVhiKQdcgGaPp XgCKJcyTMotGW7ZWFyNL7kuomuT KvfYFecPLKqhjO8XZQijQSpD4Po HTEwEZ9giakdXRQ5LFtwXWRjBTQ 3TmUxPRBsj5Cpieu1QsDxkLq5d3 glQQFsWQTvdQxfz9ixMHR7RZAis CDrH6znhV7wFHFiPE6dveicv8xa YWsgIVwaKYBxqYO2mjD9EYOwqAR dF8IlyI3sBZQeUSOqfsBtpKuukF 5cZnMyMFxjZjEgUmVuYWwgdHJhb uOnwHZhhI5fEDQvai6= [facility] Work Phone: For Immediate Release to Patient's MyChart? Yes Yes [facility] Work Phone: Gross Description a0rpeCViMZDskFJqTNWs X8dyorS nEGCovFZaI5OkckfcUPhqIC1dGD 5phBlmrOFxoEYaAOKwIvFpn6ovd 527vUQre8xoENOCgbkgrSe3tEcu N95xh8K2FeqaB79wiENzGJB0SMA iEPHhoYQeIWYaGTK5FETlvXWlR6 jsXRDvGH0pieyeTFswTZxjGAKbp DT2WMWynWWxW0CiKMWeHXyzNDRd lxs8BmJaVs0gjAMbmMxuMRvnJSM kXHBsYWluXGZzMjAgTExMIEJBTF tbQYHjKBKqzDIiGPo1DDVaxJ0nl OIscvCniIVhqA4cxLmaBRtwKJDy ZUCCEYIjcOjkLBIREQFbz3KxjA5 ccGFyXHBhcmRccGFyXHBhcn0= [facility] Work Phone: [facility] Work Phone: HEPATIC FUNCTION PANELon Albumin [Mass/Vol] 3.2 g/dL Low 3.5 - 5.0 g/dL [facility] ALP [Catalytic activity/Vol] 118 U/L 32 - 126 U/L [facility] ALT [Catalytic activity/Vol] 25 U/L 10 - 52 U/L [facility] AST [Catalytic activity/Vol] 32 U/L 10 - 39 U/L [facility] Bilirubin [Mass/Vol] 1.0 mg/dL [place] [address].5 mg/dL [facility] Bilirubin.direct [Mass/Vol] 0.3 mg/dL High NINF - 0.3 mg/dL [facility] Protein [Mass/Vol] 6.5 g/dL 6.4 - 8.3 g/dL [facility] Albumin [Mass/Vol] 3.2 g/dL Low 3.5-5.0 [facility] Comment on above: Performed By: #### M MERLE CHM7, HFP ####[facility] (DEFAULT)[address] [place] [address] ALP [Catalytic activity/Vol] 118 U/L Normal 32-126 [facility] Comment on above: Performed By: #### M MERLE CHM7, HFP ####[facility] (DEFAULT)[address] [place] [address] ALT [Catalytic activity/Vol] 25 U/L Normal 10-52 [facility] Comment on above: Performed By: #### M MERLE CHM7, HFP ####[facility] (DEFAULT)[address] [place] [address] AST [Catalytic activity/Vol] 32 U/L Normal 10-39 [facility] Comment on above: Performed By: #### M GO CHM7, HFP ####[facility] (DEFAULT)[address] [place] [address] Bilirubin [Mass/Vol] 1.0 mg/dL Normal <1.5 [facility] Comment on above: Performed By: #### M GO CHM7, HFP ####[facility] (DEFAULT)[address] [place] [address] Bilirubin.indirect [Mass/Vol] 0.3 mg/dL High <0.3 [facility] Comment on above: Performed By: #### M GO CHM7, HFP ####[facility] (DEFAULT)[address] [place] [address] Protein [Mass/Vol] 6.5 g/dL Normal 6.4-8.3 [facility] Comment on above: Performed By: #### M , CHM7, [facility] ####[facility] (DEFAULT)[address] [place] [address] HISTOPLASMA AND BLASTOMYCES ANTIGEN, ENZYME IMMUNOASSAY, SERMon 09-03-2023 Histoplasma/Blastomy antonia Ag Result Detected Critically abnormal Not Detected [facility] Histoplasma/Blastomy antonia Ag Value 5.3 ng/mL [facility] Interpretation and review of laboratory results Abnormal [facility] IMMUNOPHENOTYPING, TISSUE/FL UIDon 09-03-2023 BKR DX CODE Use Ordering Normal [facility] Comment on above: Order Comment: Pleas e lab add on to specimen collected yesterdayIMMUNOPHENOTYPING DIAGNOSISPATIENT NAME: GEORGE SLATER: 1970MRN: [id number]#: [id number] BY: Yossi Perla M.D,, Ph.D. [id number] TYPE: Bronchial Alveolar LavageLABORATORY INTERPRETATION:There is no [...] performance characteristicsdetermined The Flow Cytometry Laboratory at [facility]. It has notbeen cleared or approved by the FDA. This laboratory is certifiedunder the Clinical Laboratory Improvement Amendments (CLIA)as qualified to perform high complexity clinical laboratorytesting. This test is used for clinical purposes. It should notbe regarded as investigational or for research.The [facility] Flow Cytometry Laboratory lower limitof CLL MRD detection is 0.1% of the gated lymphocytes. Performed By: #### G IPP ####[facility] (DEFAULT)[address] [place] [address] Flow Interpretation See Comment Normal [facility] Comment on above: Order Comment: Dilan gregory lab add on to specimen collected yesterdayIMMUNOPHENOTYPING DIAGNOSISPATIENT NAME: GEORGE SLATER: 1970MRN: [id number]#: [id number] BY: Yossi Perla M.D,, Ph.D. [id number] TYPE: Bronchial Alveolar LavageLABORATORY INTERPRETATION:There is no [...] performance characteristicsdetermined The Flow Cytometry Laboratory at [facility]. It has notbeen cleared or approved by the FDA. This laboratory is certifiedunder the Clinical Laboratory Improvement Amendments (CLIA)as qualified to perform high complexity clinical laboratorytesting. This test is used for clinical purposes. It should notbe regarded as investigational or for research.The [facility] Flow Cytometry Laboratory lower limitof CLL MRD detection is 0.1% of the gated lymphocytes. Performed By: #### G IPP ####[facility] ([place] [address] Flow Interpreted by: Yossi Perla MD, PhD Normal [facility] Comment on above: Order Comment: Dilan gregory lab add on to specimen collected yesterdayIMMUNOPHENOTYPING DIAGNOSISPATIENT NAME: GEORGE SLATER: 1970MRN: [id number]#: [id number] BY: Yossi Perla M.D,, Ph.D. [id number] TYPE: Bronchial Alveolar LavageLABORATORY INTERPRETATION:There is no [...] performance characteristicsdetermined The Flow Cytometry Laboratory at [facility]. It has notbeen cleared or approved by the FDA. This laboratory is certifiedunder the Clinical Laboratory Improvement Amendments (CLIA)as qualified to perform high complexity clinical laboratorytesting. This test is used for clinical purposes. It should notbe regarded as investigational or for research.The [facility] Flow Cytometry Laboratory lower limitof CLL MRD detection is 0.1% of the gated lymphocytes. Performed By: #### G IPP ####[facility] (DEFAULT)[address] [place] [address] MAGNESIUMon 09-03-2023 Interpretation and review of laboratory results Normal [facility] Magnesium [Mass/Vol] 1.6 mg/dL 1.6 - 2 .6 mg/dL [facility] Magnesium [Mass/Vol] 1.6 mg/dL Normal 1.6-2.6 [facility] Comment on above: Performed By: #### M GO, CHM7, [facility] ####[facility] (DEFAULT)[address] [place] [address] No Panel Informationon 09-03 Interpretation and review of laboratory results Abnormal [facility] PARVOVIRUS (B19) DNA, PCR, B LOODon 09-03-2023 PARVOVIRUS B19 BY RAPID PCR Not detected Not Detected [facility] MS SPEC SOURCE Whole Blood [facility] Portable XR Chest Viewson RADIOLOGY RADIOLOGY [facility] Radiology Study observation (narrative) [facility] Portable XR Chest ViewsOrder ed By: [place] on 09-03-2023 [facility] Work Phone: XR CHEST PORTABLEon 09-03-20 23 XR CHEST PORTABLE Normal [facility] ACID FAST CULTUREon 09-02-20 23 Bacteria identified Cx Nom (Unsp spec) NO GROWTH DAY 42 OF 42 Normal [facility] Comment on above: Performed By: #### A FB ####[facility] (DEFAULT)[address] [facility] [place] [address] Fluorochrome Stain No acid Fast Bacillus Seen Normal [facility] Comment on above: Performed By: #### A FB ####[facility] (DEFAULT)[address] [facility] [place] [address] Bacteria identified Cx Nom (Unsp spec) NO GROWTH DAY 42 OF 42 Normal [facility] Comment on above: Order Comment: BAL A FB culture. Clinical suspicion for non-tuberculous mycobacteria Performed By: #### A FB ####[facility] (DEFAULT)[address] [facility] [place] [address] Fluorochrome Stain No acid Fast Bacillus Seen Normal [facility] Comment on above: Order Comment: BAL A FB culture. Clinical suspicion for non-tuberculous mycobacteria Performed By: #### A FB ####[facility] (DEFAULT)[address] [facility] [place] [address] ASPERGILLUS (GALACTOMANNAN), ANTIGENon 09-02-2023 Galactomannan Ag IA Qn <0.500 NINF [facility] ASPERGILLUS ANTIGEN, BALon 1 Aspergillus Galactomannan Antigen, BAL <0.500 Normal <0.5 [facility] Comment on above: Result Comment: ---- ADDITIONAL INFORMATION This is a qualitative test and the resulted index value isnot indicative of disease severity. Serial testing isrecommended for patients at high risk for invasiveaspergillosis.This assay was performed using the FDA-cleared Bio-Rad[employer]at[employer] Aspergillus Galactomannan EIA.Test Performed by:[address] Director: Rosendo Bose M.D. Ph.D.; CLIA# [id number] Performed By: #### X ASGFL ####[facility] (DEFAULT)[address] [address] Aspergillus Galactomannan Antigen, BAL <0.500 Normal <0.5 [facility] Comment on above: Order Comment: BAL a spirgillus antigen Result Comment: ---- ADDITIONAL INFORMATION This is a qualitative test and the resulted index value isnot indicative of disease severity. Serial testing isrecommended for patients at high risk for invasiveaspergillosis.This assay was performed using the FDA-cleared Bio-RadPlatelia Aspergillus Galactomannan EIA.Test Performed by:[address] Director: Rosendo Bose M.D. Ph.D.; CLIA# [id number] Performed By: #### X ASGFL ####[facility] (DEFAULT)[address] [place] [address] ATYPICAL BACTERIAL PNEUMONIA ,PCROrdered By: Shari Contreras on 09-02-2023 B. parapertussis DNA ESTELITA+probe Ql (Unsp spec) Not detected Not Detected [facility] B. pertussis DNA ESTELITA+probe Ql (Unsp spec) Not detected Not Detected [facility] C. pneumoniae DNA ESTELITA+probe Ql (Unsp spec) Not detected Not Detected [facility] Interpretation and review of laboratory results Normal [facility] M. pneumoniae DNA ESTELITA+probe Ql (Unsp spec) Not detected Not Detected [facility] ATYPICAL BACTERIAL PNEUMONIA ,PCRon 09-02-2023 Bordetella Parapertussis Not detected Normal Not Detected [facility] Comment on above: [...] by The Clinical Microbiology Laboratory at The [facility]. It has not been cleared or approved by the FDA. The laboratory is required under CLIA as qualified to perform high-complexity testing. This test is used for clinical purposes. It should not be regarded as investigational or for research. Performed By: #### A TYPNE ####[facility] (DEFAULT)[address] [place] [address] Bordetella Pertussis Not detected Normal Not Detected [facility] Comment on above: [...] by The Clinical Microbiology Laboratory at The [facility]. It has not been cleared or approved by the FDA. The laboratory is required under CLIA as qualified to perform high-complexity testing. This test is used for clinical purposes. It should not be regarded as investigational or for research. Performed By: #### A TYPNE ####[facility] (DEFAULT)[address] [address] Chlamydia Pneumoniae Not detected Normal Not Detected [facility] Comment on above: [...] by The Clinical Microbiology Laboratory at [facility]. It has not been cleared or approved by the FDA. The laboratory is required under CLIA as qualified to perform high-complexity testing. This test is used for clinical purposes. It should not be regarded as investigational or for research. Performed By: #### A TYPNE ####[facility] (DEFAULT)[address] [address] Mycoplasma Pneumoniae Not detected Normal Not Detected [facility] Comment on above: [...] by The Clinical Microbiology Laboratory at [facility]. It has not been cleared or approved by the FDA. The laboratory is required under CLIA as qualified to perform high-complexity testing. This test is used for clinical purposes. It should not be regarded as investigational or for research. Performed By: #### A TYPNE ####[facility] (DEFAULT)[address] [address] BAL CONSULTon 09-02-2023 ALVEOLAR MACROPHAGES 33 % Normal [facility] Comment on above: Order Comment: BAL c onsultIf > 15% lymphocytes - please send for flow. Performed By: #### B ALC ####[facility] (DEFAULT)[address] [facility] [place] [address] Bal comments Correlation with microbiology stains and cultures is recommended. Correlation with viral studies is recommended. Normal [facility] Comment on above: Order Comment: BAL c onsultIf > 15% lymphocytes - please send for flow. Performed By: #### B ALC ####[facility] (DEFAULT)[address] [place] [address] Bal Diff Quik Stain Quality Check Acceptable Normal [facility] Comment on above: Order Comment: BAL c onsultIf > 15% lymphocytes - please send for flow. Performed By: #### B ALC ####[facility] (DEFAULT)[address] [place] [address], [place] [address] Bal Reviewed By: Leonardo Peralta MD [facility] Comment on above: Order Comment: BAL c onsultIf > 15% lymphocytes - please send for flow. Performed By: #### B ALC ####[facility] (DEFAULT)[address] [place] [address] BKR BAL INTERPRETATION Cellular specimen comprised of alveolar macrophages and small lymphocytes. No definitive microorganisms are observed. Rare degenerating cells with changes suggestive of viral cytopathic effect are noted. Moderate degenerative changes. Normal [facility] Comment on above: Order Comment: BAL c onsultIf > 15% lymphocytes - please send for flow. Performed By: #### B ALC ####[facility] (DEFAULT)[address] [place] [address], [place] [address] BKR DX CODE Use Ordering Normal [facility] Comment on above: Order Comment: BAL c onsultIf > 15% lymphocytes - please send for flow. Performed By: #### B ALC ####[facility] (DEFAULT)[address] [place] [address] Eosinophils/100 WBC (Bld) 0 % Normal [facility] Comment on above: Order Comment: BAL c onsultIf > 15% lymphocytes - please send for flow. Performed By: #### B ALC ####[facility] (DEFAULT)[address] [place] [address] Lymphocytes/100 WBC (Bld) 49 % Normal [facility] Comment on above: Order Comment: BAL c onsultIf > 15% lymphocytes - please send for flow. Performed By: #### B ALC ####[facility] (DEFAULT)[address] [place] [address] Neutrophils/100 WBC (Bld) 18 % Normal [facility] Comment on above: Order Comment: BAL c onsultIf > 15% lymphocytes - please send for flow. Performed By: #### B ALC ####[facility] (DEFAULT)[address] [facility] [place] [address] ALVEOLAR MACROPHAGES 32 % Normal [facility] Comment on above: Order Comment: BAL c onsult for cell differential and pathologist review. Please do flow cytometry if > 12% lymphocytes Performed By: #### B ALC ####[facility] (DEFAULT)[address] [facility] [place] [address] Bal comments Correlation with microbiology stains and cultures is recommended. Normal [facility] Comment on above: Order Comment: BAL c onsult for cell differential and pathologist review. Please do flow cytometry if > 12% lymphocytes Performed By: #### B ALC ####[facility] (DEFAULT)[address] [facility] [place] [address] Bal Diff Quik Stain Quality Check Acceptable Normal [facility] Comment on above: Order Comment: BAL c onsult for cell differential and pathologist review. Please do flow cytometry if > 12% lymphocytes Performed By: #### B ALC ####[facility] (DEFAULT)[address] [facility] [place] [address] Bal Reviewed By: Leonardo Peralta MD [facility] Comment on above: Order Comment: BAL c onsult for cell differential and pathologist review. Please do flow cytometry if > 12% lymphocytes Performed By: #### B ALC ####[facility] (DEFAULT)[address] [place] [address] BKR BAL INTERPRETATION Cellular specimen comprised of alveolar macrophages and small lymphocytes. No definitive microorganisms are observed. Moderate degenerative changes. Normal [facility] Comment on above: Order Comment: BAL c onsult for cell differential and pathologist review. Please do flow cytometry if > 12% lymphocytes Performed By: #### B ALC ####[facility] (DEFAULT)[address] [place] [address] BKR DX CODE Use Ordering Normal [facility] Comment on above: Order Comment: BAL c onsult for cell differential and pathologist review. Please do flow cytometry if > 12% lymphocytes Performed By: #### B ALC ####[facility] (DEFAULT)[address] [place] [address] Eosinophils/100 WBC (Bld) 0 % Normal [facility] Comment on above: Order Comment: BAL c onsult for cell differential and pathologist review. Please do flow cytometry if > 12% lymphocytes Performed By: #### B ALC ####[facility] (DEFAULT)[address] [facility] [place] [address] Lymphocytes/100 WBC (Bld) 57 % Normal [facility] Comment on above: Order Comment: BAL c onsult for cell differential and pathologist review. Please do flow cytometry if > 12% lymphocytes Performed By: #### B ALC ####[facility] (DEFAULT)[address] [place] [address] Neutrophils/100 WBC (Bld) 11 % Normal [facility] Comment on above: Order Comment: BAL c onsult for cell differential and pathologist review. Please do flow cytometry if > 12% lymphocytes Performed By: #### B ALC ####[facility] (DEFAULT)[address] [place] [address] BRONCHOSCOPYon 09-02-2023 Radiology Study observation (narrative) [facility] Bacteria identified Cx Nom ( Bld)on 09-02-2023 Bacteria identified Cx Nom (Unsp spec) NO GROWTH DAY 5 OF 5 [facility] CBC,PLATELETSon 09-02-2023 Erythrocyte distribution width (RBC) [Ratio] 13.2 % 10.9 - 14.3 % [facility] Hematocrit (Bld) [Volume fraction] 39.9 % 39.6 - 48.8 % [facility] Hemoglobin (Bld) [Mass/Vol] 12.9 g/dL Low 13.4 - 16.8 g/dL [facility] Interpretation and review of laboratory results Abnormal [facility] MCH (RBC) [Entitic mass] 27.9 pg 26.1 - 33.3 pg [facility] MCHC (RBC) [Mass/Vol] 32.3 g/dL 31.9 - 36.5 g/dL [facility] MCV (RBC) [Entitic vol] 86.4 fL 79.0 - 94.5 fL [facility] Platelet mean volume (Bld) [Entitic vol] 9.5 fL 8.7 - 12.3 fL [facility] Platelets (Bld) [#/Vol] 210 10*3/uL 146 - 337 K/uL [facility] RBC (Bld) [#/Vol] 4.62 10*6/uL [facility] WBC (Bld) [#/Vol] 4.12 10*3/uL 3.73 - 10. 10 K/uL [facility] Hematocrit (Bld) [Volume fraction] 39.9 % Normal 39.6-48.8 [facility] Comment on above: Performed By: #### [facility] ####[facility] (DEFAULT)[address] [place] [address] Hemoglobin (Bld) [Mass/Vol] 12.9 g/dL Low 13.4-16.8 [facility] Comment on above: Performed By: #### H [facility] ####[facility] (DEFAULT)[address] [place] [address] MCV (RBC) [Entitic vol] 86.4 fL Normal 79.0-94.5 [facility] Comment on above: Performed By: #### H EMOGC ####[facility] (DEFAULT)[address] [place] [address] Mean Cell Hgb 27.9 pg Normal 26.1-33.3 [facility] Comment on above: Performed By: #### H EMOGC ####[facility] (DEFAULT)[address] [place] [address] Mean Cell Hgb Conc 32.3 g/dL Normal 31.9-36.5 [facility] Comment on above: Performed By: #### H EMOGC ####[facility] (DEFAULT)[address] [place] [address] Platelet mean volume (Bld) [Entitic vol] 9.5 fL Normal 8.7-12.3 [facility] Comment on above: Performed By: #### H EMOGC ####[facility] (DEFAULT)[address] [place] [address] Platelets (Bld) [#/Vol] 210 10*3/uL Normal 146-337 [facility] Comment on above: Performed By: #### H EMOGC ####[facility] (DEFAULT)[address] [place] [address] RBC (Bld) [#/Vol] 4.62 10*6/uL Normal 4.38-5.83 [facility] Comment on above: Performed By: #### H EMOGC ####[facility] (DEFAULT)[address] [place] [address] RBC Distribution 13.2 % Normal 10.9-14.3 [facility] Comment on above: Performed By: #### H EMOGC ####[facility] (DEFAULT)[address] [place] [address] WBC (Bld) [#/Vol] 4.12 10*3/uL Normal 3.73-10.10 [facility] Comment on above: Performed By: #### H EMOGC ####[facility] (DEFAULT)[address] [place] [address] CHEM 7 (LYTES,BUN,CREA,GLUC) on 09-02-2023 Anion gap [Moles/Vol] 13 mmol/L 7 - 17 mmol/L [facility] Chloride [Moles/Vol] 105 mmol/L 98 - 10 8 mmol/L [facility] CO2 [Moles/Vol] 22 mmol/L 21 - 31 mmol/L [facility] Creatinine [Mass/Vol] 1.25 mg/dL 0.70 - 1.30 mg/dL [facility] eGFR, CKD-EPI, Male 69 - PINF [facility] Glucose [Mass/Vol] 105 mg/dL High 70 - 99 mg/dL [facility] Osmolality Calc [Osmolality] 287 [facility] Potassium [Moles/Vol] 4.3 mmol/L 3.5 - 5.0 mmol/L [facility] Sodium [Moles/Vol] 136 mmol/L 135 - 145 mmol/L [facility] Urea nitrogen [Mass/Vol] 16 mg/dL 7 - 25 mg/dL [facility] Urea nitrogen/Creatinine [Mass ratio] 13 mg/mg [facility] Anion gap [Moles/Vol] 13 mmol/L Normal 7-17 [facility] Comment on above: Performed By: #### C HM7, HFP, MGO ####[facility] (DEFAULT)[address] [place] [address] Chloride [Moles/Vol] 105 mmol/L Normal 98-108 [facility] Comment on above: Performed By: #### C HM7, HFP, MGO ####[facility] (DEFAULT)[address] [place] [address] CO2 [Moles/Vol] 22 mmol/L Normal 21-31 [facility] Comment on above: Performed By: #### C HM7, HFP, MGO ####[facility] (DEFAULT)[address] [place] [address] Creatinine [Mass/Vol] 1.25 mg/dL Normal 0.70-1.30 [facility] Comment on above: Performed By: #### C HM7, HFP, MGO ####[facility] (DEFAULT)[address] [place] [address] GFR/1.73 sq M.predicted among non-blacks MDRD (S/P/Bld) [Vol rate/Area] 69 mL/min/{1.73_m2} Normal >=60 [facility] Comment on above: Result Comment: Repo rted eGFR is based on the CKD-EPI 2020 equation using creatinine, age, and sex. Performed By: #### C HM7, HFP, MGO ####[facility] (DEFAULT)[address] [place] [address] Glucose [Mass/Vol] 105 mg/dL High 70-99 [facility] Comment on above: Performed By: #### C HM7, HFP, MGO ####[facility] (DEFAULT)[address] [place] [address] Osmolality [Osmolality] 287 mosm/kg Normal 278-305 [facility] Comment on above: Performed By: #### C HM7, HFP, MGO ####[facility] (DEFAULT)[address] [place] [address] Potassium [Moles/Vol] 4.3 mmol/L Normal 3.5-5.0 [facility] Comment on above: Performed By: #### C HM7, HFP, MGO ####[facility] (DEFAULT)[address] [place] [address] Sodium [Moles/Vol] 136 mmol/L Normal 135-145 [facility] Comment on above: Performed By: #### C HM7, HFP, MGO ####[facility] (DEFAULT)[address] [place] [address] Urea nitrogen [Mass/Vol] 16 mg/dL Normal 7-25 [facility] Comment on above: Performed By: #### C HM7, HFP, MGO ####[facility] (DEFAULT)[address] [facility] [place] [address] Urea nitrogen/Creatinine [Mass ratio] 13 mg/mg Normal [facility] Comment on above: Performed By: #### C HM7, HFP, MGO ####[facility] (DEFAULT)[address] [place] [address] CMV PCR,FLUIDS,URINE,EYE ETC on 09-02-2023 CMV by PCR Result Negative Normal Negative [facility] Comment on above: Result Comment: ---- ADDITIONAL INFORMATION This test was developed and its performance characteristicsdetermined by [facility] in a manner consistent with CLIArGénie Numériqueirements. This test has not been cleared or approved by[facility] U.S. Food and Drug Administration.Test Performed by:[address] Director: Rosendo Bose M.D. Ph.D.; CLIA# [id number] Performed By: #### Y CMV ####[facility] (DEFAULT)[address] [place] [address], [place] [address] CMV BY PCR SOURCE BAL RML Normal [facility] Comment on above: Performed By: #### Y CMV ####[facility] (DEFAULT)[address] [place] [address], [place] [address] CMV by PCR Result Negative Normal Negative [facility] Comment on above: Result Comment: ---- ADDITIONAL INFORMATION This test was developed and its performance characteristicsdetermined by [facility] in a manner consistent with CLIArequirements. This test has not been cleared or approved bythe U.S. Food and Drug Administration.Test Performed by:[address] [address]Nhw Director: Rosendo Bose M.D. Ph.D.; CLIA# [id number] Performed By: #### Y CMV ####[facility] (DEFAULT)[address] [facility] [place] [address] CMV BY PCR SOURCE BAL LLL Normal [facility] Comment on above: Performed By: #### Y CMV ####[facility] (DEFAULT)[address] [place] [address] CYTOLOGY, NON-GYNon 09-02-20 23 CYTOLOGIC DIAGNOSIS Normal [facility] Comment on above: Result Comment: A. B RONCHOALVEOLAR LAVAGE, LEFT LOWER LOBE (CYTOLOGY):FINAL DIAGNOSIS:No Malignant Cells Are IdentifiedHypocellular Specimen Performed By: #### N ONJONH ####[facility] (DEFAULT)[address] [place] [address] Case Report Normal [facility] Comment on above: Result Comment: Medi abhishek Cytology Report Case: [id number] Provider: Crow Diaz MD Collected: 09/02/2023 08:38 AMOrdering [facility] Received: 09/02/2023 10:44 AMPathologist: KENTON Caglepecimen: BRONCHOALVEOLAR LAVAGE, LLL BAL Performed By: #### N ONJOHNNA ####[facility] (DEFAULT)[address] [place] [address] Clinical History Renal transplant. Normal O [facility] Comment on above: Performed By: #### N ONNILOFNA ####[facility] (DEFAULT)[address] [facility] [place] [address] Gross Description Normal [facility] Comment on above: Result Comment: LLL BAL1 ml hazy colorless fld unfixed1 TP slide Pap stainFor Immediate Release to Patient's MyChart? Yes Performed By: #### N ONGNNONFNA ####[facility] (DEFAULT)[address] [place] [address] FUNGUS CULTUREon 09-02-2023 Bacteria identified Cx Nom (Unsp spec) Normal [facility] Comment on above: Order Comment: Ident ification was performed on the MALDI-TOF mass spectrometer [employer]. This test was developed by [facility]. It has not been cleared or approved by the FDA. The laboratory is regulated under CLIA as qualified to perform high-complexity testing. This test is used for clinical purposes. It should not be regarded as investigational or for research. Result Comment: Grow [id number] [place] Histoplasma capsulatum Performed By: #### F UN ####[facility] (DEFAULT)[address] [place] [address] Bacteria identified Cx Nom (Unsp spec) NO GROWTH DAY 28 OF 28 Normal [facility] Comment on above: Order Comment: BAL f ungal culture Performed By: #### F UN ####[facility] (DEFAULT)[address] [place] [address] HEPATIC FUNCTION PANELon Albumin [Mass/Vol] 3.2 g/dL Low 3.5 - 5.0 g/dL [facility] ALP [Catalytic activity/Vol] 107 U/L 32 - 126 U/L [facility] ALT [Catalytic activity/Vol] 20 U/L 10 - 52 U/L [facility] AST [Catalytic activity/Vol] 31 U/L 10 - 39 U/L [facility] Bilirubin [Mass/Vol] 1.0 mg/dL NINF - 1.5 mg/dL [facility] Bilirubin.direct [Mass/Vol] 0.3 mg/dL High NINF - 0.3 mg/dL [facility] Protein [Mass/Vol] 6.6 g/dL 6.4 - 8.3 g/dL [facility] Albumin [Mass/Vol] 3.2 g/dL Low 3.5-5.0 [facility] Comment on above: Performed By: #### C HM7, HFP, MGO ####[facility] (DEFAULT)[address] [place] [address] ALP [Catalytic activity/Vol] 107 U/L Normal 32-126 [facility] Comment on above: Performed By: #### C HM7, HFP, MGO ####[facility] (DEFAULT)[address] [place] [address] ALT [Catalytic activity/Vol] 20 U/L Normal 10-52 [facility] Comment on above: Performed By: #### C HM7, HFP, MGO ####[facility] (DEFAULT)[address] [place] [address] AST [Catalytic activity/Vol] 31 U/L Normal 10-39 [facility] Comment on above: Performed By: #### C HM7, HFP, MGO ####[facility] (DEFAULT)[address] [place] [address] Bilirubin [Mass/Vol] 1.0 mg/dL Normal <1.5 [facility] Comment on above: Performed By: #### C HM7, HFP, MGO ####[facility] (DEFAULT)[address] [place] [address] Bilirubin.indirect [Mass/Vol] 0.3 mg/dL High <0.3 [facility] Comment on above: Performed By: #### C HM7, HFP, MGO ####[facility] (DEFAULT)[address] [place] [address] Protein [Mass/Vol] 6.6 g/dL Normal 6.4-8.3 [facility] Comment on above: Performed By: #### C HM7, HFP, MGO ####[facility] (DEFAULT)[address] [place] [address] HISTOPLASMA ANTIGEN, FLUIDon 09-02-2023 FH SOURCE BAL RML Normal [facility] Comment on above: Performed By: #### Y FHST ####[facility] (DEFAULT)[address] [place] [address] Histo FLD interpretation Negative Normal [facility] Comment on above: Result Comment: ---- ADDITIONAL INFORMATION Reference interval: None DetectedReportable Range: Positive Results reported in ng/mL from0.20 ng/mL to 20.00 ng/mLPositive Results above 20.00 ng/mL are reported as 'Abovethe Limit of Quantification'Cross-reactions occur with Blastomyces spp., Coccidioidesspp., and Paracoccidioides brasiliensis.This test was developed and its performance characteristicsdetermined by [employer]. It has not beencleared or approved by the FDA; however, FDA clearance orapproval is not currently required for clinical use. Theresults are not intended to be used as the sole means forclinical diagnosis or patient management decisions.Test Performed by:[employer] [place] [address] [place] [address] Performed By: #### Y FHST ####[facility] (DEFAULT)[address] [place] [address], [place] [address] Histoplasma Antigen, FLUID Not detected Normal [facility] Comment on above: Performed By: #### Y FHST ####[facility] (DEFAULT)[address] [place] [address], [place] [address] HISTOPLASMA ANTIGEN,URINEon 09-02-2023 H. capsulatum Ag (U) [Mass/Vol] Not detected ng/mL [facility] H. capsulatum Ag IA Ql (U) Not detected Not Detected [facility] HISTOPLASMA CAPSULATUM/BLAST OMYCES SPECIES,PCR FLUIDon 09-02-2023 HISTO/BLASTO RESULT Negative Normal Not Applicable [facility] Comment on above: Result Comment: [...] bythe U.S. Food and Drug Administration.Test Performed by:[address] [address]Bhu Director: Rosendo Bose M.D. Ph.D.; CLIA# [id number] Performed By: #### Y HBRP ####[facility] (DEFAULT)[address] [place] [address] Source BAL RML Normal [facility] Comment on above: Performed By: #### Y HBRP ####[facility] (DEFAULT)[address] [place] [address] HIV 1 AND 2 ANTIBODIES/P24 A NTIGENOrdered By: Wilma Luque on 09-02-2023 HIV 1+2 Ab+HIV1 p24 Ag IA Ql Non-Reactive Non Reactive [facility] Interpretation and review of laboratory results Normal [facility] HIV 1 AND 2 ANTIBODIES/P24 A NTIGENon 09-02-2023 HIV-1/HIV-2 Ab With p24 Antigen Non-Reactive Normal Non Reactive [facility] Comment on above: Performed By: #### L [id number] ####[facility] (DEFAULT)[address] [place] [address] LEGIONELLA CULTUREon 023 Bacteria identified Cx Nom (Unsp spec) NO GROWTH DAY 7 OF 7 Normal [facility] Comment on above: Performed By: #### L EGN ####[facility] (DEFAULT)[address] [place] [address] Bacteria identified Cx Nom (Unsp spec) NO GROWTH DAY 7 OF 7 Normal [facility] Comment on above: Order Comment: BAL l egionella culture Performed By: #### L EGN ####[facility] (DEFAULT)[address] [place] [address] LEGIONELLA PCRon 09-02-2023 Legionella species, Culture BAL RML Normal [facility] Comment on above: Performed By: #### Y LEGRP ####[facility] (DEFAULT)[address] [place] [address] Legionella, pcr result Negative Normal Not Applicable [facility] Comment on above: Result Comment: ---- ADDITIONAL INFORMATION This test was developed and its performance characteristicsdetermined by [facility] in a manner consistent with CLIArequirements. This test has not been cleared or approved bythe U.S. Food and Drug Administration.Test Performed by:[address] Director: Rosendo Bose M.D. Ph.D.; CLIA# [id number] Performed By: #### Y LEGRP ####[facility] (DEFAULT)[address] [place] [address] LOWER RESPIRATORY CULTURE, B ACTERIALon 09-02-2023 Bacteria identified Cx Nom (Unsp spec) NO GROWTH DAY 2 OF 2 Normal [facility] Comment on above: Performed By: #### R ES ####[facility] (DEFAULT)[address] [place] [address] Microscopic observation Gram stain Nom (Unsp spec) Normal [facility] Comment on above: Result Comment: Cyto centrifuge preparationNeutrophils, RareRed Blood Cells PresentNo organisms seen Performed By: #### R ES ####[facility] (DEFAULT)[address] [place] [address] Bacteria identified Cx Nom (Unsp spec) NO GROWTH DAY 2 OF 2 Normal [facility] Comment on above: Order Comment: BAL b acterial respiratory culture Performed By: #### R ES ####[facility] (DEFAULT)[address] [place] [address] Microscopic observation Gram stain Nom (Unsp spec) Normal [facility] Comment on above: Order Comment: BAL b acterial respiratory culture Result Comment: Cyto centrifuge preparationNeutrophils, ModerateRed Blood Cells PresentNo organisms seen Performed By: #### R ES ####[facility] (DEFAULT)[address] [place] [address] MAGNESIUMon 09-02-2023 Interpretation and review of laboratory results Normal [facility] Magnesium [Mass/Vol] 1.7 mg/dL 1.6 - 2 .6 mg/dL [facility] Magnesium [Mass/Vol] 1.7 mg/dL Normal 1.6-2.6 [facility] Comment on above: Performed By: #### C HM7, HFP, MGO ####[facility] (DEFAULT)[address] [place] [address] No Panel Informationon 09-02 Interpretation and review of laboratory results Abnormal [facility] PNEUMOCYSTIS JIROVECI,PCRon 09-02-2023 PN Report Status DNR Normal [facility] Comment on above: Performed By: #### Y PNRP ####[facility] (DEFAULT)[address] [place] [address] PN Specimen Source BAL RML Normal [facility] Comment on above: Performed By: #### Y PNRP ####[facility] (DEFAULT)[address] [facility] [place] [address] Pneum jiroveci comment DNR Normal [facility] Comment on above: Performed By: #### Y PNRP ####[facility] (DEFAULT)[address] [place] [address] Pneumocystis jiroveci,PCR result Negative Normal Not Applicable [facility] Comment on above: Result Comment: ---- ADDITIONAL INFORMATION This test was developed and its performance characteristicsdetermined by [facility] in a manner consistent with CLIArequirements. This test has not been cleared or approved bythe U.S. Food and Drug Administration.Test Performed by:[place] [id number] Director: Rosendo Bose M.D. Ph.D.; CLIA# [id number] Performed By: #### Y PNRP ####[facility] (DEFAULT)[address] [place] [address] PN Report Status DNR Normal [facility] Comment on above: Performed By: #### Y PNRP ####[facility] (DEFAULT)[address] [place] [address] PN Specimen Source BAL LLL Normal [facility] Comment on above: Performed By: #### Y PNRP ####[facility] (DEFAULT)[address] [place] [address], [place] [address] Pneum jiroveci comment DNR Normal [facility] Comment on above: Performed By: #### Y PNRP ####[facility] (DEFAULT)[address] [place] [address], [place] [address] Pneumocystis jiroveci,PCR result Negative Normal Not Applicable [facility] Comment on above: Result Comment: ---- ADDITIONAL INFORMATION This test was developed and its performance characteristicsdetermined by [facility] in a manner consistent with CLIArequirements. This test has not been cleared or approved bythe U.S. Food and Drug Administration.Test Performed by:[address] [address]Pjc Director: Rosendo Bose M.D. Ph.D.; CLIA# [id number] Performed By: #### Y PNRP ####[facility] (DEFAULT)[address] [place] [address] TACROLIMUS LEVEL, TROUGH (MS E DRUG LEVEL)on 09-02-2023 Interpretation and review of laboratory results Normal [facility] Tacrolimus (Bld) [Mass/Vol] 4.2 ng/mL [facility] Tacrolimus, Trough 4.2 ng/mL Normal [facility] Susana ow Transplant: 4.0-12.0, Therapeutic: 5.0-15.0 [facility] Comment on above: Order Comment: Pleas e draw at specified interval PRIOR to dose. Do not hold dose to wait for level. Specimens batched twice per day, (M-F) and once per day weekendsMethod performed is a chemiluminescent microparticle immunoasssay on the [employer] i2000.The range is based on experience at [facility] and users should be aware that target concentrations vary widely depending on concomitant therapy, time post-transplant, and desired degree of immunosuppression. Performed By: #### T ACRO ####[facility] (DEFAULT)[address] [place] [address] CBC,PLATELETSon 09-01-2023 Erythrocyte distribution width (RBC) [Ratio] 13.4 % 10.9 - 14.3 % [facility] Hematocrit (Bld) [Volume fraction] 38.9 % Low 39.6 - 48.8 % [facility] Hemoglobin (Bld) [Mass/Vol] 12.7 g/dL Low 13.4 - 16.8 g/dL [facility] Interpretation and review of laboratory results Abnormal [facility] MCH (RBC) [Entitic mass] 27.6 pg 26.1 - 33.3 pg [facility] MCHC (RBC) [Mass/Vol] 32.6 g/dL 31.9 - 36.5 g/dL [facility] MCV (RBC) [Entitic vol] 84.6 fL 79.0 - 94.5 fL [facility] Platelet mean volume (Bld) [Entitic vol] 9.4 fL 8.7 - 12.3 fL [facility] Platelets (Bld) [#/Vol] 209 10*3/uL 146 - 337 K/uL [facility] RBC (Bld) [#/Vol] 4.60 10*6/uL [facility] WBC (Bld) [#/Vol] 4.41 10*3/uL 3.73 - 10. 10 K/uL [facility] Hematocrit (Bld) [Volume fraction] 38.9 % Low 39.6-48.8 [facility] Comment on above: Performed By: #### H EMO ####[facility] (DEFAULT)[address] [place] [address] Hemoglobin (Bld) [Mass/Vol] 12.7 g/dL Low 13.4-16.8 [facility] Comment on above: Performed By: #### H EMO ####[facility] (DEFAULT)[address] [place] [address] MCV (RBC) [Entitic vol] 84.6 fL Normal 79.0-94.5 [facility] Comment on above: Performed By: #### H EMOGC ####[facility] (DEFAULT)[address] [facility] [place] [address] Mean Cell Hgb 27.6 pg Normal 26.1-33.3 [facility] Comment on above: Performed By: #### H EMO ####[facility] (DEFAULT)[address] [facility] [place] [address] Mean Cell Hgb Conc 32.6 g/dL Normal 31.9-36.5 [facility] Comment on above: Performed By: #### H EMOGC ####[facility] (DEFAULT)[address] [facility] [place] [address] Platelet mean volume (Bld) [Entitic vol] 9.4 fL Normal 8.7-12.3 [facility] Comment on above: Performed By: #### H [facility] ####[facility] (DEFAULT)[address] [place] [address] Platelets (Bld) [#/Vol] 209 10*3/uL Normal 146-337 [facility] Comment on above: Performed By: #### H EMO ####[facility] (DEFAULT)[address] [place] [address] RBC (Bld) [#/Vol] 4.60 10*6/uL Normal 4.38-5.83 [facility] Comment on above: Performed By: #### H [facility] ####[facility] (DEFAULT)[address] [place] [address] RBC Distribution 13.4 % Normal 10.9-14.3 [facility] Comment on above: Performed By: #### H [facility] ####[facility] (DEFAULT)[address] [place] [address] WBC (Bld) [#/Vol] 4.41 10*3/uL Normal 3.73-10.10 [facility] Comment on above: Performed By: #### H [facility] ####[facility] (DEFAULT)[address] [place] [address] CHEM 7 (LYTES,BUN,CREA,GLUC) on 09-01-2023 Anion gap [Moles/Vol] 14 mmol/L 7 - 17 mmol/L [facility] Chloride [Moles/Vol] 103 mmol/L 98 - 10 8 mmol/L [facility] CO2 [Moles/Vol] 21 mmol/L 21 - 31 mmol/L [facility] Creatinine [Mass/Vol] 1.16 mg/dL 0.70 - 1.30 mg/dL [facility] eGFR, CKD-EPI, Male 76 - PINF [facility] Glucose [Mass/Vol] 117 mg/dL High 70 - 99 mg/dL [facility] Osmolality Calc [Osmolality] 285 [facility] Potassium [Moles/Vol] 4.2 mmol/L 3.5 - 5.0 mmol/L [facility] Sodium [Moles/Vol] 134 mmol/L Low 135 - 145 mmol/L [facility] Urea nitrogen [Mass/Vol] 18 mg/dL 7 - 25 mg/dL [facility] Urea nitrogen/Creatinine [Mass ratio] 16 mg/mg [facility] Anion gap [Moles/Vol] 14 mmol/L Normal 7-17 [facility] Comment on above: Performed By: #### H ANTWAN MGHELEN MercadoM7 ####[facility] (DEFAULT)[address] [facility] [place] [address] Chloride [Moles/Vol] 103 mmol/L Normal 98-108 [facility] Comment on above: Performed By: #### H ANTWAN MGNATHANIEL Mercado ####[facility] (DEFAULT)[address] [facility] [place] [address] CO2 [Moles/Vol] 21 mmol/L Normal 21-31 [facility] [facility] Comment on above: Performed By: #### H DOMENICA MONCADA CHM7 ####[facility] (DEFAULT)[address] [facility] [place] [address] Creatinine [Mass/Vol] 1.16 mg/dL Normal 0.70-1.30 [facility] Comment on above: Performed By: #### H ANTWAN MGO CHM7 ####[facility] (DEFAULT)[address] [place] [address] GFR/1.73 sq M.predicted among non-blacks MDRD (S/P/Bld) [Vol rate/Area] 76 mL/min/{1.73_m2} Normal >=60 [facility] Comment on above: Result Comment: Repo rted eGFR is based on the CKD-EPI 2020 equation using creatinine, age, and sex. Performed By: #### H ANTWAN MGOTJ7 ####[facility] (DEFAULT)[address] [place] [address] Glucose [Mass/Vol] 117 mg/dL High 70-99 [facility] Comment on above: Performed By: #### H ANTWAN MGO CHM7 ####[facility] (DEFAULT)[address] [place] [address] Osmolality [Osmolality] 285 mosm/kg Normal 278-305 [facility] Comment on above: Performed By: #### H ANTWAN MGO, CHM7 ####[facility] (DEFAULT)[address] [place] [address] Potassium [Moles/Vol] 4.2 mmol/L Normal 3.5-5.0 [facility] Comment on above: Performed By: #### H ANTWAN MGO, CHM7 ####[facility] (DEFAULT)[address] [place] [address] Sodium [Moles/Vol] 134 mmol/L Low 135-145 [facility] Comment on above: Performed By: #### H ANTWAN MGO, CHM7 ####[facility] (DEFAULT)[address] [place] [address] Urea nitrogen [Mass/Vol] 18 mg/dL Normal 7-25 [facility] Comment on above: Performed By: #### Lydia MONCADA MGO, CHM7 ####[facility] (DEFAULT)[address] [place] [address] Urea nitrogen/Creatinine [Mass ratio] 16 mg/mg Normal [facility] Comment on above: Performed By: #### Lydia MONCADA MGO, CHM7 ####[facility] (DEFAULT)[address] [place] [address] CRYPTOCOCCAL ANTIGENon 09-01 Cryptococcus sp Ag Ql (S) Negative Negative [facility] Interpretation and review of laboratory results Normal [facility] Cryptococcus Antigen,Serum Negative Normal Negative [facility] Comment on above: Performed By: #### C RAG ####[facility] (DEFAULT)[address] [place] [address] HEPATIC FUNCTION PANELon Albumin [Mass/Vol] 3.3 g/dL Low 3.5 - 5.0 g/dL [facility] ALP [Catalytic activity/Vol] 112 U/L 32 - 126 U/L [facility] ALT [Catalytic activity/Vol] 21 U/L 10 - 52 U/L [facility] AST [Catalytic activity/Vol] 29 U/L 10 - 39 U/L [facility] Bilirubin [Mass/Vol] 1.0 mg/dL NINF - 1.5 mg/dL [facility] Bilirubin.direct [Mass/Vol] 0.2 mg/dL NINF - 0.3 mg/dL [facility] Protein [Mass/Vol] 6.8 g/dL 6.4 - 8.3 g/dL [facility] Albumin [Mass/Vol] 3.3 g/dL Low 3.5-5.0 [facility] Comment on above: Performed By: #### H DOMENICA MONCADA CHM7 ####[facility] (DEFAULT)[address] [place] [address] ALP [Catalytic activity/Vol] 112 U/L Normal 32-126 [facility] Comment on above: Performed By: #### H DOMENICA MONCADA CHM7 ####[facility] (DEFAULT)[address] [facility] [place] [address] ALT [Catalytic activity/Vol] 21 U/L Normal 10-52 [facility] Comment on above: Performed By: #### H DOMENICA MONCADA CHM7 ####[facility] (DEFAULT)[address] [facility] [place] [address] AST [Catalytic activity/Vol] 29 U/L Normal 10-39 [facility] Comment on above: Performed By: #### H DOMENICA MONCADA CHM7 ####[facility] (DEFAULT)[address] [facility] [place] [address] Bilirubin [Mass/Vol] 1.0 mg/dL Normal <1.5 [facility] Comment on above: Performed By: #### H DOMENICA MONCADA CHM7 ####[facility] (DEFAULT)[address] [facility] [place] [address] Bilirubin.indirect [Mass/Vol] 0.2 mg/dL Normal <0.3 [facility] Comment on above: Performed By: #### H DOMENICA MONCADA CHM7 ####[facility] (DEFAULT)[address] [facility] [place] [address] Protein [Mass/Vol] 6.8 g/dL Normal 6.4-8.3 [facility] Comment on above: Performed By: #### H DOMENICA MONCADA CHM7 ####[facility] (DEFAULT)[address] [place] [address] L. pneumophila 1 Ag IA Ql (U )Ordered By: Carolin Miles on 09-01-2023 Interpretation and review of laboratory results Normal [facility] LEGIONELLA URINARY AGOrdered By: Carolin Miles on 09-01-2023 L. pneumophila 1 Ag IA Ql (U) Negative Negative [facility] MAGNESIUMon 09-01-2023 Interpretation and review of laboratory results Normal [facility] Magnesium [Mass/Vol] 1.6 mg/dL 1.6 - 2 .6 mg/dL [facility] Magnesium [Mass/Vol] 1.6 mg/dL Normal 1.6-2.6 [facility] Comment on above: Performed By: #### H DOMENICA MONCADA CHM7 ####[facility] (DEFAULT)[address] [facility] [place] [address] No Panel Informationon 09-01 Interpretation and review of laboratory results Abnormal [facility] PARVOVIRUS (B19) DNA, PCR, B Jenise 09-01-2023 PARVOVIRUS B19 BY RAPID PCR Not detected Normal Not Detected [facility] Comment on above: Result Comment: The primers/probe used in this assay will detectparvovirus B19 and V9 (genotypes 1 # 3) but maynot detect parvovirus genotype 2. The majority ofcirculating Parvovirus B19 strains in the [facility] are genotype 1. Genotype 2 is not believed tocirculate widely in the [facility], but has beenassociated with similar clinical features as genotype1. Genotype 3 is most prevalent in some [place].This test was developed and its analyticalperformance characteristics have been determinedby [place].It has not been cleared or approved by the FDA. Thisassay has been validated pursuant to the CLIAregulations and is used for clinical purposes.Test Performed at:[facility] [address] [id number] Benavides M.D., Ph.D.,Director of Laboratories Performed By: #### Y PRVP ####[facility] (DEFAULT)[address] [place] [address] MS SPEC SOURCE Whole Blood Normal [facility] Comment on above: Performed By: #### Y PRVP ####[facility] (DEFAULT)[address] [place] [address] ASPERGILLUS (GALACTOMANNAN), ANTIGENon 08-31-2023 Aspergillus Antigen <0.500 Normal <0.5 [facility] Comment on above: Result Comment: ---- ADDITIONAL INFORMATION This is a qualitative test and the resulted index value isnot indicative of disease severity. Serial testing isrecommended for patients at high risk for invasiveaspergillosis.This assay was performed using the FDA-cleared [employer] Aspergillus Galactomannan EIA.Test Performed by:[address] [address]fh Director: Rosendo Bose M.D. Ph.D.; CLIA# [id number] Performed By: #### Y ASP ####[facility] (DEFAULT)[address] [place] [address] CBC,PLATELETSon 08-31-2023 Erythrocyte distribution width (RBC) [Ratio] 13.3 % 10.9 - 14.3 % [facility] Hematocrit (Bld) [Volume fraction] 39.4 % Low 39.6 - 48.8 % [facility] Hemoglobin (Bld) [Mass/Vol] 12.8 g/dL Low 13.4 - 16.8 g/dL [facility] Interpretation and review of laboratory results Abnormal [facility] MCH (RBC) [Entitic mass] 27.6 pg 26.1 - 33.3 pg [facility] MCHC (RBC) [Mass/Vol] 32.5 g/dL 31.9 - 36.5 g/dL [facility] MCV (RBC) [Entitic vol] 85.1 fL 79.0 - 94.5 fL [facility] Platelet mean volume (Bld) [Entitic vol] 9.6 fL 8.7 - 12.3 fL [facility] Platelets (Bld) [#/Vol] 228 10*3/uL 146 - 337 K/uL [facility] RBC (Bld) [#/Vol] 4.63 10*6/uL [facility] WBC (Bld) [#/Vol] 4.77 10*3/uL 3.73 - 10. 10 K/uL [facility] Hematocrit (Bld) [Volume fraction] 39.4 % Low 39.6-48.8 [facility] Comment on above: Performed By: #### H [facility] ####[facility] (DEFAULT)[address] [place] [address] Hemoglobin (Bld) [Mass/Vol] 12.8 g/dL Low 13.4-16.8 [facility] Comment on above: Performed By: #### H [facility] ####[facility] (DEFAULT)[address] [place] [address] MCV (RBC) [Entitic vol] 85.1 fL Normal 79.0-94.5 [facility] Comment on above: Performed By: #### H EMOGC ####[facility] (DEFAULT)[address] [place] [address] Mean Cell Hgb 27.6 pg Normal 26.1-33.3 [facility] Comment on above: Performed By: #### H EMOGC ####[facility] (DEFAULT)[address] [place] [address] Mean Cell Hgb Conc 32.5 g/dL Normal 31.9-36.5 [facility] Comment on above: Performed By: #### H EMOGC ####[facility] (DEFAULT)[address] [place] [address] Platelet mean volume (Bld) [Entitic vol] 9.6 fL Normal 8.7-12.3 [facility] Comment on above: Performed By: #### H EMOGC ####[facility] (DEFAULT)[address] [place] [address] Platelets (Bld) [#/Vol] 228 10*3/uL Normal 146-337 [facility] Comment on above: Performed By: #### H EMOGC ####[facility] (DEFAULT)[address] [place] [address] RBC (Bld) [#/Vol] 4.63 10*6/uL Normal 4.38-5.83 [facility] Comment on above: Performed By: #### H EMOGC ####[facility] (DEFAULT)[address] [place] [address] RBC Distribution 13.3 % Normal 10.9-14.3 [facility] Comment on above: Performed By: #### H EMOGC ####[facility] (DEFAULT)[address] [place] [address] WBC (Bld) [#/Vol] 4.77 10*3/uL Normal 3.73-10.10 [facility] Comment on above: Performed By: #### H [facility] ####[facility] (DEFAULT)[address] [place] [address] CHEM 7 (LYTES,BUN,CREA,GLUC) on 08-31-2023 Anion gap [Moles/Vol] 13 mmol/L 7 - 17 mmol/L [facility] Chloride [Moles/Vol] 102 mmol/L 98 - 10 8 mmol/L [facility] CO2 [Moles/Vol] 23 mmol/L 21 - 31 mmol/L [facility] Creatinine [Mass/Vol] 1.37 mg/dL High 0.70 - 1.30 mg/dL [facility] e[facility], CKD-EPI, Male 62 - [facility] Glucose [Mass/Vol] 112 mg/dL High 70 - 99 mg/dL [facility] Osmolality Calc [Osmolality] 284 [facility] Potassium [Moles/Vol] 4.4 mmol/L 3.5 - 5.0 mmol/L [facility] Sodium [Moles/Vol] 134 mmol/L Low 135 - 145 mmol/L [facility] Urea nitrogen [Mass/Vol] 16 mg/dL 7 - 25 mg/dL [facility] Urea nitrogen/Creatinine [Mass ratio] 12 mg/mg [facility] Anion gap [Moles/Vol] 13 mmol/L Normal 7-17 [facility] Comment on above: Performed By: #### M TAVO BLOOM, FERROBERT, PROCAL, CHM7 ####[facility] (DEFAULT)[address] [place] [address] Chloride [Moles/Vol] 102 mmol/L Normal 98-108 [facility] Comment on above: Performed By: #### M MERLE HFP, FERIB, PROCAL, CHM7 ####[facility] (DEFAULT)[address] [place] [address] CO2 [Moles/Vol] 23 mmol/L Normal 21-31 [facility] Comment on above: Performed By: #### M GO, HFP, FERIB, PROCAL, CHM7 ####[facility] (DEFAULT)[address] [place] [address] Creatinine [Mass/Vol] 1.37 mg/dL High 0.70-1.30 [facility] Comment on above: Performed By: #### M GO, HFP, FERIB, PROCAL, CHM7 ####[facility] (DEFAULT)[address] [place] [address] GFR/1.73 sq M.predicted among non-blacks MDRD (S/P/Bld) [Vol rate/Area] 62 mL/min/{1.73_m2} Normal >=60 [facility] Comment on above: Result Comment: Repo rted eGFR is based on the CKD-EPI 2020 equation using creatinine, age, and sex. Performed By: #### M GO, HFP, FERIB, PROCAL, CHM7 ####[facility] (DEFAULT)[address] [facility] [place] [address] Glucose [Mass/Vol] 112 mg/dL High 70-99 [facility] Comment on above: Performed By: #### M GO, HFP, FERIB, PROCAL, CHM7 ####[facility] (DEFAULT)[address] [place] [address] Osmolality [Osmolality] 284 mosm/kg Normal 278-305 [facility] Comment on above: Performed By: #### M GO, HFP, FERIB, PROCAL, CHM7 ####[facility] (DEFAULT)[address] [place] [address] Potassium [Moles/Vol] 4.4 mmol/L Normal 3.5-5.0 [facility] Comment on above: Performed By: #### M GO, HFP, FERIB, PROCAL, CHM7 ####[facility] (DEFAULT)[address] [place] [address] Sodium [Moles/Vol] 134 mmol/L Low 135-145 [facility] Comment on above: Performed By: #### M GO, HFP, FERIB, PROCAL, CHM7 ####[facility] (DEFAULT)[address] [place] [address] Urea nitrogen [Mass/Vol] 16 mg/dL Normal 7-25 [facility] Comment on above: Performed By: #### M GO, HFP, FERIB, PROCAL, CHM7 ####[facility] (DEFAULT)[address] [place] [address] Urea nitrogen/Creatinine [Mass ratio] 12 mg/mg Normal [facility] Comment on above: Performed By: #### M GO, HFP, FERIB, PROCAL, CHM7 ####[facility] (DEFAULT)[address] [place] [address] CT ABDOMEN/PELVIS WITHOUT CO NTRASTon 08-31-2023 CT ABDOMEN/PELVIS WITHOUT CONTRAST Normal [facility] CT Abdomen and Pelvis WO con traston 08-31-2023 RADIOLOGY RADIOLOGY [facility] Radiology Study observation (narrative) [facility] CT Abdomen and Pelvis WO con trastOrdered By: Chavez Larkin on 08-31-2023 [facility] Work Phone: CT CHEST WITHOUT CONTRASTon 08-31-2023 CT CHEST WITHOUT CONTRAST Normal [facility] CT Chest WO contraston 08-31 RADIOLOGY RADIOLOGY [facility] Radiology Study observation (narrative) [facility] CT Chest WO contrastOrdered By: Daisha Patterson on 08-31-2023 [facility] Work Phone: FERRITINon 08-31-2023 Ferritin [Mass/Vol] 409.0 ng/mL High 10.5 - 3 07.3 ng/mL [facility] Interpretation and review of laboratory results Abnormal [facility] Ferritin [Mass/Vol] 409.0 ng/mL High 10.5-307.3 [facility] Comment on above: Performed By: #### M MERLE HFP, FERIB, PROCAL, CHM7 ####[facility] (DEFAULT)[address] [place] [address] HEPATIC FUNCTION PANELon Albumin [Mass/Vol] 3.3 g/dL Low 3.5 - 5.0 g/dL [facility] ALP [Catalytic activity/Vol] 113 U/L 32 - 126 U/L [facility] ALT [Catalytic activity/Vol] 25 U/L 10 - 52 U/L [facility] AST [Catalytic activity/Vol] 31 U/L 10 - 39 U/L [facility] Bilirubin [Mass/Vol] 1.1 mg/dL NINF - 1.5 mg/dL [facility] Bilirubin.direct [Mass/Vol] 0.3 mg/dL High NINF - 0.3 mg/dL [facility] Protein [Mass/Vol] 7.0 g/dL 6.4 - 8.3 g/dL [facility] Albumin [Mass/Vol] 3.3 g/dL Low 3.5-5.0 [facility] Comment on above: Performed By: #### M MERLE HFP, FERIB, PROCAL, CHM7 ####[facility] (DEFAULT)[address] [place] [address] ALP [Catalytic activity/Vol] 113 U/L Normal 32-126 [facility] Comment on above: Performed By: #### M MERLE HFP, FERIB, PROCAL, CHM7 ####[facility] (DEFAULT)[address] [place] [address] ALT [Catalytic activity/Vol] 25 U/L Normal 10-52 [facility] Comment on above: Performed By: #### M GO, HFP, FERIB, PROCAL, CHM7 ####[facility] (DEFAULT)[address] [place] [address] AST [Catalytic activity/Vol] 31 U/L Normal 10-39 [facility] Comment on above: Performed By: #### M GO, HFP, FERIB, PROCAL, CHM7 ####[facility] (DEFAULT)[address] [place] [address] Bilirubin [Mass/Vol] 1.1 mg/dL Normal <1.5 [facility] Comment on above: Performed By: #### M GO, HFP, FERIB, PROCAL, CHM7 ####[facility] (DEFAULT)[address] [place] [address] Bilirubin.indirect [Mass/Vol] 0.3 mg/dL High <0.3 [facility] Comment on above: Performed By: #### M GO, HFP, FERIB, PROCAL, CHM7 ####[facility] (DEFAULT)[address] [place] [address] Protein [Mass/Vol] 7.0 g/dL Normal 6.4-8.3 [facility] Comment on above: Performed By: #### M GO, HFP, FERIB, PROCAL, CHM7 ####[facility] (DEFAULT)[address] [place] [address] LEGIONELLA URINARY AGon 10- Legionella Urinary Antigen Negative Normal Negative [facility] Comment on above: Performed By: #### L EGION ####[facility] (DEFAULT)[address] [place] [address] MAGNESIUMon 08-31-2023 Interpretation and review of laboratory results Normal [facility] Magnesium [Mass/Vol] 1.7 mg/dL 1.6 - 2 .6 mg/dL [facility] Magnesium [Mass/Vol] 1.7 mg/dL Normal 1.6-2.6 [facility] Comment on above: Performed By: #### M MERLE HFP, FERIB, PROCAL, CHM7 ####[facility] (DEFAULT)[address] [place] [address] No Panel Informationon 08-31 Interpretation and review of laboratory results Abnormal [facility] PROCALCITONINon 08-31-2023 Interpretation and review of laboratory results Normal [facility] Procalcitonin [Mass/Vol] 0.23 ng/mL NINF - 0.50 ng/mL [facility] Procalcitonin 0.23 ng/mL Normal <0.50 [facility] Comment on above: Result Comment: [...] and trend procalcitonin in various clinical settings. [email or web address]?[email or web address]=/departments/[email or web address]/Documents/[email or web address] [email or web address]&action=[email or web address] common cutoffs associated with bacterial infections are as follows.Respiratory tract infections: >0.25 ng/mLSepsis/septic shock: >0.5 ng/mLProcalcitonin should not be used alone as a diagnostic tool, however. All procalcitonin results should be interpreted in association with the patients clinical condition and all laboratory findings. Performed By: #### M MERLE, HFP, FERIB, PROCAL, CHM7 ####[facility] (DEFAULT)[address] [place] [address] TACROLIMUS LEVEL, TROUGH (MS E DRUG LEVEL)Ordered By: Yanira Marcum on 08-31-2023 Interpretation and review of laboratory results Normal [facility] Tacrolimus (Bld) [Mass/Vol] 5.9 ng/mL [facility] TACROLIMUS LEVEL, TROUGH (MS E DRUG LEVEL)on 08-31-2023 Tacrolimus, Trough 5.9 ng/mL Normal [facility] ow Transplant: 4.0-12.0, Therapeutic: 5.0-15.0 [facility] Comment on above: Order Comment: Pleas e draw at specified interval PRIOR to dose. Do not hold dose to wait for level. Specimens batched twice per day, (M-F) and once per day weekendsMethod performed is a chemiluminescent microparticle immunoasssay on the [employer] i2000.The range is based on experience at [facility] and users should be aware that target concentrations vary widely depending on concomitant therapy, time post-transplant, and desired degree of immunosuppression. Performed By: #### T ACRO ####[facility] (DEFAULT)[address] [place] [address] URINE CULTUREOrdered By: Jorge crowe Held on 08-31-2023 Bacteria identified Cx Nom (Unsp spec) No Growth [facility] DARYL AURIS SCREEN BY PCRO rdered By: Mynor Alejandro on 08-30-2023 Daryl auris Screen by PCR Not detected Not Detected [facility] Interpretation and review of laboratory results Normal [facility] CBC,PLATELETSon 08-30-2023 Erythrocyte distribution width (RBC) [Ratio] 13.3 % 10.9 - 14.3 % [facility] Hematocrit (Bld) [Volume fraction] 41.3 % 39.6 - 48.8 % [facility] Hemoglobin (Bld) [Mass/Vol] 13.2 g/dL Low 13.4 - 16.8 g/dL [facility] Interpretation and review of laboratory results Abnormal [facility] MCH (RBC) [Entitic mass] 27.3 pg 26.1 - 33.3 pg [facility] MCHC (RBC) [Mass/Vol] 32.0 g/dL 31.9 - 36.5 g/dL [facility] MCV (RBC) [Entitic vol] 85.5 fL 79.0 - 94.5 fL [facility] Platelet mean volume (Bld) [Entitic vol] 9.2 fL 8.7 - 12.3 fL [facility] Platelets (Bld) [#/Vol] 235 10*3/uL 146 - 337 K/uL [facility] RBC (Bld) [#/Vol] 4.83 10*6/uL [facility] WBC (Bld) [#/Vol] 4.96 10*3/uL 3.73 - 10. 10 K/uL [facility] Hematocrit (Bld) [Volume fraction] 41.3 % Normal 39.6-48.8 [facility] Comment on above: Performed By: #### H EMO ####[facility] (DEFAULT)[address] [place] [address] Hemoglobin (Bld) [Mass/Vol] 13.2 g/dL Low 13.4-16.8 [facility] Comment on above: Performed By: #### H EMO ####[facility] (DEFAULT)[address] [place] [address] MCV (RBC) [Entitic vol] 85.5 fL Normal 79.0-94.5 [facility] Comment on above: Performed By: #### H EMOGC ####[facility] (DEFAULT)[address] [place] [address] Mean Cell Hgb 27.3 pg Normal 26.1-33.3 [facility] Comment on above: Performed By: #### H EMOGC ####[facility] (DEFAULT)[address] [place] [address] Mean Cell Hgb Conc 32.0 g/dL Normal 31.9-36.5 [facility] Comment on above: Performed By: #### H EMOGC ####[facility] (DEFAULT)[address] [place] [address] Platelet mean volume (Bld) [Entitic vol] 9.2 fL Normal 8.7-12.3 [facility] Comment on above: Performed By: #### H EMO ####[facility] (DEFAULT)[address] [facility] [place] [address] Platelets (Bld) [#/Vol] 235 10*3/uL Normal 146-337 [facility] [facility] Comment on above: Performed By: #### H EMO ####[facility] (DEFAULT)[address] [place] [address] RBC (Bld) [#/Vol] 4.83 10*6/uL Normal 4.38-5.83 [facility] Comment on above: Performed By: #### H EMO ####[facility] (DEFAULT)[address] [facility] [place] [address] RBC Distribution 13.3 % Normal 10.9-14.3 [facility] Comment on above: Performed By: #### H EMO ####[facility] (DEFAULT)[address] [facility] [place] [address] WBC (Bld) [#/Vol] 4.96 10*3/uL Normal 3.73-10.10 [facility] Comment on above: Performed By: #### [facility] ####[facility] (DEFAULT)[address] [place] [address] CHEM 7 (LYTES,BUN,CREA,GLUC) on 08-30-2023 Anion gap [Moles/Vol] 14 mmol/L 7 - 17 mmol/L [facility] Chloride [Moles/Vol] 102 mmol/L 98 - 10 8 mmol/L [facility] CO2 [Moles/Vol] 20 mmol/L Low 21 - 31 mmol/L [facility] Creatinine [Mass/Vol] 1.56 mg/dL High 0.70 - 1.30 mg/dL [facility] eGFR, CKD-EPI, Male 53 Low - PINF [facility] Glucose [Mass/Vol] 123 mg/dL High 70 - 99 mg/dL [facility] Osmolality Calc [Osmolality] 281 [facility] Potassium [Moles/Vol] 4.3 mmol/L 3.5 - 5.0 mmol/L [facility] Sodium [Moles/Vol] 132 mmol/L Low 135 - 145 mmol/L [facility] Urea nitrogen [Mass/Vol] 16 mg/dL 7 - 25 mg/dL [facility] Urea nitrogen/Creatinine [Mass ratio] 10 mg/mg [facility] Anion gap [Moles/Vol] 14 mmol/L Normal 7-17 [facility] Comment on above: Performed By: #### NATHANIEL RAMÍREZ, HFP ####[facility] (DEFAULT)[address] [facility] [place] [address] Chloride [Moles/Vol] 102 mmol/L Normal 98-108 [facility] Comment on above: Performed By: #### NATHANIEL RAMÍREZ, HFP ####[facility] (DEFAULT)[address] [facility] [place] [address] CO2 [Moles/Vol] 20 mmol/L Low 21-31 [facility] Comment on above: Performed By: #### NATHANIEL RAMÍREZ, HFP ####[facility] (DEFAULT)[address] [facility] [place] [address] Creatinine [Mass/Vol] 1.56 mg/dL High 0.70-1.30 [facility] Comment on above: Performed By: #### NATHANIEL RAMÍREZ, HFP ####[facility] (DEFAULT)[address] [facility] [place] [address] GFR/1.73 sq M.predicted among non-blacks MDRD (S/P/Bld) [Vol rate/Area] 53 mL/min/{1.73_m2} Low >=60 [facility] Comment on above: Result Comment: Repo rted eGFR is based on the CKD-EPI 2020 equation using creatinine, age, and sex. Performed By: #### NATHANIEL RAMÍREZ, HFP ####[facility] (DEFAULT)[address] [place] [address] Glucose [Mass/Vol] 123 mg/dL High 70-99 [facility] Comment on above: Performed By: #### NATHANIEL RAMÍREZ, HFP ####[facility] (DEFAULT)[address] [place] [address] Osmolality [Osmolality] 281 mosm/kg Normal 278-305 [facility] Comment on above: Performed By: #### NATHANIEL RAMÍREZ, HFP ####[facility] (DEFAULT)[address] [place] [address] Potassium [Moles/Vol] 4.3 mmol/L Normal 3.5-5.0 [facility] Comment on above: Performed By: #### NATHANIEL RAMÍREZ, HFP ####[facility] (DEFAULT)[address] [place] [address] Sodium [Moles/Vol] 132 mmol/L Low 135-145 [facility] Comment on above: Performed By: #### NATHANIEL RAMÍREZ, HFP ####[facility] (DEFAULT)[address] [place] [address] Urea nitrogen [Mass/Vol] 16 mg/dL Normal 7-25 [facility] Comment on above: Performed By: #### NATHANIEL RAMÍREZ, HFP ####[facility] (DEFAULT)[address] [place] [address] Urea nitrogen/Creatinine [Mass ratio] 10 mg/mg Normal [facility] Comment on above: Performed By: #### NATHANIEL RAMÍREZ, HFP ####[facility] (DEFAULT)[address] [place] [address] EXTRA MICROon 08-30-2023 [facility] HEPATIC FUNCTION PANELon Albumin [Mass/Vol] 3.7 g/dL 3.5 - 5.0 g/dL [facility] ALP [Catalytic activity/Vol] 115 U/L 32 - 126 U/L [facility] ALT [Catalytic activity/Vol] 22 U/L 10 - 52 U/L [facility] AST [Catalytic activity/Vol] 34 U/L 10 - 39 U/L [facility] Bilirubin [Mass/Vol] 1.2 mg/dL NINF - 1.5 mg/dL [facility] Bilirubin.direct [Mass/Vol] 0.3 mg/dL High NINF - 0.3 mg/dL [facility] Protein [Mass/Vol] 7.7 g/dL 6.4 - 8.3 g/dL [facility] Albumin [Mass/Vol] 3.7 g/dL Normal 3.5-5.0 [facility] Comment on above: Performed By: #### NATHANIEL RAMÍREZ, HFP ####[facility] (DEFAULT)[address] [facility] [place] [address] ALP [Catalytic activity/Vol] 115 U/L Normal 32-126 [facility] Comment on above: Performed By: #### NATHANIEL RAMÍREZ, HFP ####[facility] (DEFAULT)[address] [facility] [place] [address] ALT [Catalytic activity/Vol] 22 U/L Normal 10-52 [facility] Comment on above: Performed By: #### NATHANIEL RMAÍREZ, HFP ####[facility] (DEFAULT)[address] [facility] [place] [address] AST [Catalytic activity/Vol] 34 U/L Normal 10-39 [facility] Comment on above: Performed By: #### NATHANIEL RAMÍREZ, HFP ####[facility] (DEFAULT)[address] [facility] [place] [address] Bilirubin [Mass/Vol] 1.2 mg/dL Normal <1.5 [facility] Comment on above: Performed By: #### NATHANIEL RAMÍREZ, HFP ####[facility] (DEFAULT)[address] [facility] [place] [address] Bilirubin.indirect [Mass/Vol] 0.3 mg/dL High <0.3 [facility] Comment on above: Performed By: #### NATHANIEL RAMÍREZ, HFP ####[facility] (DEFAULT)[address] [place] [address] Protein [Mass/Vol] 7.7 g/dL Normal 6.4-8.3 [facility] Comment on above: Performed By: #### M NATHANIEL BLOOM, HFP ####[facility] (DEFAULT)[address] [place] [address] MAGNESIUMon 08-30-2023 Interpretation and review of laboratory results Normal [facility] Magnesium [Mass/Vol] 1.8 mg/dL 1.6 - 2 .6 mg/dL [facility] Magnesium [Mass/Vol] 1.8 mg/dL Normal 1.6-2.6 [facility] Comment on above: Performed By: #### NATHANIEL RAMÍREZ, HFP ####[facility] (DEFAULT)[address] [place] [address] No Panel Informationon 08-30 Interpretation and review of laboratory results Abnormal [facility] CBC,PLATELETSon 08-29-2023 Erythrocyte distribution width (RBC) [Ratio] 13.4 % 10.9 - 14.3 % [facility] Hematocrit (Bld) [Volume fraction] 37.6 % Low 39.6 - 48.8 % [facility] Hemoglobin (Bld) [Mass/Vol] 12.2 g/dL Low 13.4 - 16.8 g/dL [facility] Interpretation and review of laboratory results Abnormal [facility] MCH (RBC) [Entitic mass] 27.6 pg 26.1 - 33.3 pg [facility] MCHC (RBC) [Mass/Vol] 32.4 g/dL 31.9 - 36.5 g/dL [facility] MCV (RBC) [Entitic vol] 85.1 fL 79.0 - 94.5 fL [facility] Platelet mean volume (Bld) [Entitic vol] 9.4 fL 8.7 - 12.3 fL [facility] Platelets (Bld) [#/Vol] 233 10*3/uL 146 - 337 K/uL [facility] RBC (Bld) [#/Vol] 4.42 10*6/uL [facility] WBC (Bld) [#/Vol] 4.92 10*3/uL 3.73 - 10. 10 K/uL [facility] Hematocrit (Bld) [Volume fraction] 37.6 % Low 39.6-48.8 [facility] Comment on above: Performed By: #### H [facility] ####[facility] (DEFAULT)[address] [place] [address] Hemoglobin (Bld) [Mass/Vol] 12.2 g/dL Low 13.4-16.8 [facility] Comment on above: Performed By: #### H [facility] ####[facility] (DEFAULT)[address] [place] [address] MCV (RBC) [Entitic vol] 85.1 fL Normal 79.0-94.5 [facility] Comment on above: Performed By: #### H EMO ####[facility] (DEFAULT)[address] [place] [address] Mean Cell Hgb 27.6 pg Normal 26.1-33.3 [facility] Comment on above: Performed By: #### H EMOGC ####[facility] (DEFAULT)[address] [place] [address] Mean Cell Hgb Conc 32.4 g/dL Normal 31.9-36.5 [facility] Comment on above: Performed By: #### H EMOGC ####[facility] (DEFAULT)[address] [facility] [place] [address] Platelet mean volume (Bld) [Entitic vol] 9.4 fL Normal 8.7-12.3 [facility] Comment on above: Performed By: #### [facility] ####[facility] (DEFAULT)[address] [facility] [place] [address] Platelets (Bld) [#/Vol] 233 10*3/uL Normal 146-337 [facility] Comment on above: Performed By: #### [facility] ####[facility] (DEFAULT)[address] [facility] [place] [address] RBC (Bld) [#/Vol] 4.42 10*6/uL Normal 4.38-5.83 [facility] Comment on above: Performed By: #### [facility] ####[facility] (DEFAULT)[address] [facility] [place] [address] RBC Distribution 13.4 % Normal 10.9-14.3 [facility] Comment on above: Performed By: #### H [facility] ####[facility] (DEFAULT)[address] [facility] [place] [address] WBC (Bld) [#/Vol] 4.92 10*3/uL Normal 3.73-10.10 [facility] Comment on above: Performed By: #### [facility] ####[facility] (DEFAULT)[address] [place] [address] CHEM 7 (LYTES,BUN,CREA,GLUC) on 08-29-2023 Anion gap [Moles/Vol] 13 mmol/L 7 - 17 mmol/L [facility] Chloride [Moles/Vol] 105 mmol/L 98 - 10 8 mmol/L [facility] CO2 [Moles/Vol] 20 mmol/L Low 21 - 31 mmol/L [facility] Creatinine [Mass/Vol] 1.55 mg/dL High 0.70 - 1.30 mg/dL [facility] eGFR, CKD-EPI, Male 54 Low - [facility] Glucose [Mass/Vol] 108 mg/dL High 70 - 99 mg/dL [facility] Osmolality Calc [Osmolality] 283 [facility] Potassium [Moles/Vol] 4.5 mmol/L 3.5 - 5.0 mmol/L [facility] Sodium [Moles/Vol] 133 mmol/L Low 135 - 145 mmol/L [facility] Urea nitrogen [Mass/Vol] 19 mg/dL 7 - 25 mg/dL [facility] Urea nitrogen/Creatinine [Mass ratio] 12 mg/mg [facility] Anion gap [Moles/Vol] 13 mmol/L Normal 7-17 [facility] Comment on above: Performed By: #### M GO, CHM7, HFP, GGTB ####[facility] (DEFAULT)[address] [facility] [place] [address] Chloride [Moles/Vol] 105 mmol/L Normal 98-108 [facility] Comment on above: Performed By: #### M GO, CHM7, HFP, GGTB ####[facility] (DEFAULT)[address] [facility] [place] [address] CO2 [Moles/Vol] 20 mmol/L Low 21-31 [facility] Comment on above: Performed By: #### M GO, CHM7, HFP, GGTB ####[facility] (DEFAULT)[address] [facility] [place] [address] Creatinine [Mass/Vol] 1.55 mg/dL High 0.70-1.30 [facility] Comment on above: Performed By: #### M GO, CHM7, HFP, GGTB ####[facility] (DEFAULT)[address] [facility] [place] [address] GFR/1.73 sq M.predicted among non-blacks MDRD (S/P/Bld) [Vol rate/Area] 54 mL/min/{1.73_m2} Low >=60 [facility] Comment on above: Result Comment: Repo rted eGFR is based on the CKD-EPI 2020 equation using creatinine, age, and sex. Performed By: #### M GO, CHM7, HFP, GGTB ####[facility] (DEFAULT)[address] [place] [address] Glucose [Mass/Vol] 108 mg/dL High 70-99 [facility] Comment on above: Performed By: #### M GO, CHM7, HFP, GGTB ####[facility] (DEFAULT)[address] [place] [address] Osmolality [Osmolality] 283 mosm/kg Normal 278-305 [facility] Comment on above: Performed By: #### M GO, CHM7, HFP, GGTB ####[facility] (DEFAULT)[address] [place] [address] Potassium [Moles/Vol] 4.5 mmol/L Normal 3.5-5.0 [facility] Comment on above: Performed By: #### M GO, CHM7, HFP, GGTB ####[facility] (DEFAULT)[address] [place] [address] Sodium [Moles/Vol] 133 mmol/L Low 135-145 [facility] Comment on above: Performed By: #### M GO, CHM7, HFP, GGTB ####[facility] (DEFAULT)[address] [place] [address] Urea nitrogen [Mass/Vol] 19 mg/dL Normal 7-25 [facility] Comment on above: Performed By: #### M GO, CHM7, HFP, GGTB ####[facility] (DEFAULT)[address] [place] [address] Urea nitrogen/Creatinine [Mass ratio] 12 mg/mg Normal [facility] Comment on above: Performed By: #### M GO, CHM7, HFP, GGTB ####[facility] (DEFAULT)[address] [place] [address] GGTon 08-29-2023 Gamma glutamyl transferase [Catalytic activity/Vol] 64 U/L 8 - 64 U/L [facility] Interpretation and review of laboratory results Normal [facility] Gamma glutamyl transferase [Catalytic activity/Vol] 64 U/L Normal 8-64 [facility] Comment on above: Performed By: #### M GO, CHM7, HFP, GGTB ####[facility] (DEFAULT)[address] [place] [address] HEPATIC FUNCTION PANELon Albumin [Mass/Vol] 3.3 g/dL Low 3.5 - 5.0 g/dL [facility] ALP [Catalytic activity/Vol] 103 U/L 32 - 126 U/L [facility] ALT [Catalytic activity/Vol] 18 U/L 10 - 52 U/L [facility] AST [Catalytic activity/Vol] 27 U/L 10 - 39 U/L [facility] Bilirubin [Mass/Vol] 1.1 mg/dL [facility] - 1.5 mg/dL [facility] Bilirubin.direct [Mass/Vol] 0.3 mg/dL High NINF - 0.3 mg/dL [facility] Protein [Mass/Vol] 6.8 g/dL 6.4 - 8.3 g/dL [facility] Albumin [Mass/Vol] 3.3 g/dL Low 3.5-5.0 [facility] Comment on above: Performed By: #### M GO, CHM7, HFP, GGTB ####[facility] (DEFAULT)[address] [place] [address] ALP [Catalytic activity/Vol] 103 U/L Normal 32-126 [facility] Comment on above: Performed By: #### M GO, CHM7, HFP, GGTB ####[facility] (DEFAULT)[address] [place] [address] ALT [Catalytic activity/Vol] 18 U/L Normal 10-52 [facility] Comment on above: Performed By: #### M GO, CHM7, HFP, GGTB ####[facility] (DEFAULT)[address] [place] [address] AST [Catalytic activity/Vol] 27 U/L Normal 10-39 [facility] Comment on above: Performed By: #### M GO, CHM7, HFP, GGTB ####[facility] (DEFAULT)[address] [place] [address] Bilirubin [Mass/Vol] 1.1 mg/dL Normal <1.5 [facility] Comment on above: Performed By: #### M GO, CHM7, HFP, GGTB ####[facility] (DEFAULT)[address] [place] [address] Bilirubin.indirect [Mass/Vol] 0.3 mg/dL High <0.3 [facility] Comment on above: Performed By: #### M GO, CHM7, HFP, GGTB ####[facility] (DEFAULT)[address] [place] [address] Protein [Mass/Vol] 6.8 g/dL Normal 6.4-8.3 [facility] Comment on above: Performed By: #### M GO, CHM7, HFP, GGTB ####[facility] (DEFAULT)[address] [place] [address] HISTOPLASMA AND BLASTOMYCES ANTIGEN, ENZYME IMMUNOASSAY, SERMon 08-29-2023 Histoplasma/Blastomy antonia Ag Result Detected Invalid Interpretation Code Not Detected [facility] Comment on above: Result Comment: Anti gen from Histoplasma or Blastomyces (unable todifferentiate) detected. Result should be correlated withclinical presentation, exposure history, and otherdiagnostic procedures, including culture, serology,histopathology, and/or radiographic findings, to aid in thedifferentiation between histoplasmosis and blastomycosis.CRITICAL RESULT Performed By: #### H IBAG ####[facility] (DEFAULT)[address] [place] [address] Histoplasma/Blastomy antonia Ag Value 5.3 ng/mL Normal [facility] Comment on above: Result Comment: ---- ADDITIONAL INFORMATION This test was developed and its performance characteristicsdetermined by [facility] in a manner consistent with CLIArequirements. This test has not been cleared or approved bythe U.S. Food and Drug Administration.Test Performed by:[facility] [place] [id number] Director: Rosendo Bose M.D. Ph.D.; CLIA# [id number] Performed By: #### Lydia IBAG ####[facility] (DEFAULT)[address] [place] [address], [place] [address] HISTOPLASMA ANTIGEN,URINEon 08-29-2023 HISTOPLASM AG, URINE Not detected Normal Not Detected [facility] Comment on above: Result Comment: No H istoplasma antigen detected.False negative results may occur. Repeat testing on anew specimen should be considered if clinically indicated. Performed By: #### Noah HISTG ####[facility] (DEFAULT)[address] [place] [address], [place] [address] Histoplasma Ag Value Not detected Normal [facility] Comment on above: Result Comment: ---- ADDITIONAL INFORMATION This test has been modified from the brusher warp'sinstructions. Its performance characteristics weredetermined by [facility] in a manner consistent withCLIA requirements. This test has not been cleared orapproved by the U.S. Food and Drug Administration.Test Performed by:[facility] - [address] [address]Hco Director: Rosendo Bose M.D. Ph.D.; CLIA# [id number] Performed By: #### Noah HISTG ####[facility] (DEFAULT)[address] [place] [address] MAGNESIUMon 08-29-2023 Interpretation and review of laboratory results Normal [facility] Magnesium [Mass/Vol] 1.7 mg/dL 1.6 - 2 .6 mg/dL [facility] Magnesium [Mass/Vol] 1.7 mg/dL Normal 1.6-2.6 [facility] Comment on above: Performed By: #### M GO, CHM7, HFP, GGTB ####[facility] (DEFAULT)[address] [place] [address] No Panel Informationon 08-29 Interpretation and review of laboratory results Abnormal [facility] PT,INR,PTTon 08-29-2023 aPTT Coag (PPP) [Time] 29.3 s [facility] INR Coag (Bld) [Relative time] 1.1 {INR} 0.9 - 1.1 [facility] Interpretation and review of laboratory results Normal [facility] PT Coag (PPP) [Time] 13.8 s [facility] aPTT Coag (Bld) [Time] 29.3 s Normal 24.0-34.3 [facility] Comment on above: Performed By: #### P TPTT ####[facility] (DEFAULT)[address] [place] [address] INR Coag (PPP) [Relative time] 1.1 {INR} Normal 0.9-1.1 [facility] Comment on above: Performed By: #### P TPTT ####[facility] (DEFAULT)[address] [place] [address] PT Coag (PPP) [Time] 13.8 s Normal 11.9-14.2 [facility] Comment on above: Performed By: #### P TPTT ####[facility] (DEFAULT)[address] [place] [address] Portable XR Chest Viewson RADIOLOGY RADIOLOGY [facility] Portable XR Chest ViewsOrder ed By: Gerald Baer on 08-29-2023 [facility] Work Phone: TACROLIMUS LEVEL, TROUGH (MS E DRUG LEVEL)on 08-29-2023 Interpretation and review of laboratory results Normal [facility] Tacrolimus (Bld) [Mass/Vol] 8.9 ng/mL [facility] Tacrolimus, Trough 8.9 ng/mL Normal Bone Susana ow Transplant: 4.0-12.0, Therapeutic: 5.0-15.0 [facility] Comment on above: Order Comment: Pleas e draw at specified interval PRIOR to dose. Do not hold dose to wait for level. Specimens batched twice per day, (M-F) and once per day weekendsMethod performed is a chemiluminescent microparticle immunoasssay on the [employer] i2000.The range is based on experience at [facility] and users should be aware that target concentrations vary widely depending on concomitant therapy, time post-transplant, and desired degree of immunosuppression. Performed By: #### T ACRO ####[facility] (DEFAULT)[address] [place] [address] Tacrolimus, Trough 8.7 ng/mL Normal Bone Susana ow Transplant: 4.0-12.0, Therapeutic: 5.0-15.0 [facility] Comment on above: Order Comment: Pleas e draw at specified interval PRIOR to dose. Do not hold dose to wait for level. Specimens batched twice per day, (M-F) and once per day weekendsMethod performed is a chemiluminescent microparticle immunoasssay on the [employer] i2000.The range is based on experience at [facility] and users should be aware that target concentrations vary widely depending on concomitant therapy, time post-transplant, and desired degree of immunosuppression. Performed By: #### T ACRO ####[facility] (DEFAULT)[address] [place] [address] TACROLIMUS LEVEL, TROUGH (MS E DRUG LEVEL)Ordered By: Roxanne Louie on 08-29-2023 Interpretation and review of laboratory results Normal [facility] Tacrolimus (Bld) [Mass/Vol] 8.7 ng/mL [facility] URINALYSIS REFLEX TO CULTURE PERFORMABLEOrdered By: Shaji Kelly on 08-29-2023 Appearance (U) Clear Clear [facility] Bacteria LM Ql (Urine sed) ABSENT ABSENT [facility] Calcium Oxalate Crystals PRESENT [facility] Color (U) Yellow Yellow [facility] Epithelial cells.squamous LM Ql (Urine sed) 0-2/hpf 0-2/hpf, 3-5/hpf = 1+ [facility] Glucose Test strip (U) [Mass/Vol] Negative Negative [facility] Interpretation and review of laboratory results Abnormal [facility] Ketones (U) [Mass/Vol] Negative Negative [facility] Leukocyte esterase Test strip Ql (U) Negative Negative [facility] Nitrite Ql (U) Negative Negative [facility] pH (U) 6.0 [pH] 5.0 - 7.0 [facility] Protein (U) [Mass/Vol] Negative Negative [facility] RBC (U) [#/Vol] Trace Abnormal Negative [facility] RBC LM.HPF (Urine sed) [#/Area] 3-5 Abnormal [facility] Specific gravity (U) [Rel density] 1.015 1.001 - 1.035 [facility] Urobilinogen (U) [Mass/Vol] 1.0 E.U./dL 0.2 E.U/dL, 1.0 E.U/dL [facility] WBC LM.HPF (Urine sed) [#/Area] 0 - 5 [facility]ALYS[facility] REFLEX TO CULTURE PERFORMABLEon 08-29-2023 Appearance (U) Clear Normal Clear [facility] Comment on above: Order Comment: For i ndwelling catheters, specimen collection is acceptable on catheter day 1 and 2 only. ? Performed By: #### U [id number] ####[facility] (DEFAULT)[address] [place] [address] Bacteria ABSENT Normal ABSENT [facility] Comment on above: Order Comment: For i ndwelling catheters, specimen collection is acceptable on catheter day 1 and 2 only. ? Performed By: #### U [id number] ####[facility] (DEFAULT)[address] [place] [address] Blood Urine Trace Abnormal Negative [facility] Comment on above: Order Comment: For i ndwelling catheters, specimen collection is acceptable on catheter day 1 and 2 only. ? Performed By: #### U [id number] ####[facility] (DEFAULT)[address] [place] [address] Calcium Oxalate Crystals PRESENT Normal [facility] Comment on above: Order Comment: For i ndwelling catheters, specimen collection is acceptable on catheter day 1 and 2 only. ? Performed By: #### U [id number] ####[facility] (DEFAULT)[address] [place] [address] Color (U) Yellow Normal Yellow [facility] Comment on above: Order Comment: For i ndwelling catheters, specimen collection is acceptable on catheter day 1 and 2 only. ? Performed By: #### U [id number] ####[facility] (DEFAULT)[address] [place] [address] Glucose Ql (U) Negative Normal Negative [facility] Comment on above: Order Comment: For i ndwelling catheters, specimen collection is acceptable on catheter day 1 and 2 only. ? Performed By: #### U [id number] ####[facility] (DEFAULT)[address] [place] [address] Ketones Ql (U) Negative Normal Negative [facility] Comment on above: Order Comment: For i ndwelling catheters, specimen collection is acceptable on catheter day 1 and 2 only. ? Performed By: #### U [id number] ####[facility] (DEFAULT)[address] [place] [address] Leukocyte esterase Test strip Ql (U) Negative Normal Negative [facility] Comment on above: Order Comment: For i ndwelling catheters, specimen collection is acceptable on catheter day 1 and 2 only. ? Performed By: #### U [id number] ####[facility] (DEFAULT)[address] [place] [address] Nitrites Urine Negative Normal Negative [facility] Comment on above: Order Comment: For i ndwelling catheters, specimen collection is acceptable on catheter day 1 and 2 only. ? Performed By: #### U [id number] ####[facility] (DEFAULT)[address] [place] [address] pH (U) 6.0 [pH] Normal 5.0-7.0 [facility] Comment on above: Order Comment: For i ndwelling catheters, specimen collection is acceptable on catheter day 1 and 2 only. ? Performed By: #### U [id number] ####[facility] (DEFAULT)[address] [place] [address] Protein Urine Negative Normal Negative [facility] Comment on above: Order Comment: For i ndwelling catheters, specimen collection is acceptable on catheter day 1 and 2 only. ? Performed By: #### U [id number] ####[facility] (DEFAULT)[address] [place] [address] RBC Urine 3-5 Abnormal 0-2 [facility] Comment on above: Order Comment: For i ndwelling catheters, specimen collection is acceptable on catheter day 1 and 2 only. ? Performed By: #### U [id number] ####[facility] (DEFAULT)[address] [place] [address] Specific [place] Urine 1.015 Normal 1.001-1.035 [facility] Comment on above: Order Comment: For i ndwelling catheters, specimen collection is acceptable on catheter day 1 and 2 only. ? Performed By: #### U [id number] ####[facility] (DEFAULT)[address] [place] [address] Squamous/Epithelial Cells 0-2/hpf Normal 0-2/hpf, 3-5/hpf = 1+ [facility] Comment on above: Order Comment: For i ndwelling catheters, specimen collection is acceptable on catheter day 1 and 2 only. ? Performed By: #### U [id number] ####[facility] (DEFAULT)[address] [facility] [place] [address] Urobilinogen Urine 1.0 E.U./dL Normal 0.2 E.U/d L, 1.0 E.U/dL [facility] Comment on above: Order Comment: For i ndwelling catheters, specimen collection is acceptable on catheter day 1 and 2 only. ? Performed By: #### U [id number] ####[facility] (DEFAULT)[address] [place] [address], [place] [address] WBC Urine 0 - 5 Normal 0 - 5 [facility] Comment on above: Order Comment: For i ndwelling catheters, specimen collection is acceptable on catheter day 1 and 2 only. ? Performed By: #### U [id number] ####[facility] (DEFAULT)[address] [place] [address], [place] [address] URINE CULTUREon 08-29-2023 Bacteria identified Cx Nom (U) No Growth Normal [facility] Comment on above: Order Comment: For i ndwelling catheters, specimen collection is acceptable on catheter day 1 and 2 only. Sung top vacutainer. Urine must be to the fill line to process (4mls). If minimum volume, send urine in a yellow top vacutainer tube. Performed By: #### U R ####[facility] (DEFAULT)[address] [place] [address], [place] [address] US RENAL TRANSPLANT SCANon 0 08-29-2023 US RENAL TRANSPLANT SCAN Normal [facility] US for transplanted kidney l imitedon 08-29-2023 RADIOLOGY RADIOLOGY [facility] Radiology Study observation (narrative) [facility] US for transplanted kidney l imitedOrdered By: Romana Matias on 08-29-2023 [facility] Work Phone: XR CHEST PORTABLEon 08-29-20 23 XR CHEST PORTABLE Normal [facility] BLOOD CULTUREon 08-28-2023 Bacteria identified Cx Nom (Unsp spec) NO GROWTH DAY 5 OF 5 Normal [facility] Comment on above: Order Comment: 2 Bot tles (1 Set - consists of 1 Aerobic bottle and 1 Anaerobic bottle) -1st Peripheral DrawFor syringe method draw:If able to obtain adequate sample (20 ml) inoculate anaerobic bottle firstIf inadequate sample obtained (less than 20 ml) inoculate aerobic bottle firstFor vacutainer method draw: Fill aerobic bottle first, then anaerobic Performed By: #### B LDCULT ####[facility] (DEFAULT)[address] [place] [address] Bacteria identified Cx Nom (Unsp spec) NO GROWTH DAY 5 OF 5 Normal [facility] Comment on above: Order Comment: 2 Bot tles (1 Set - consists of 1 Aerobic bottle and 1 Anaerobic bottle) -1st Peripheral DrawFor syringe method draw:If able to obtain adequate sample (20 ml) inoculate anaerobic bottle firstIf inadequate sample obtained (less than 20 ml) inoculate aerobic bottle firstFor vacutainer method draw: Fill aerobic bottle first, then anaerobic Performed By: #### B LDCULT ####[facility] (DEFAULT)[address] [place] [address] DARYL AURIS SCREEN BY PCRo n 08-28-2023 Daryl auris Screen by PCR Not detected Normal Not Detected [facility] Comment on above: Order Comment: This test was performed using a real-time PCR assay. This test was developed, and its performance characteristics determined by [facility]. It has not been cleared or approved by the FDA. The laboratory is regulated under CLIA as qualified to perform high-complexity testing. This test is used for clinical purposes. It should not be regarded as investigational or for research. Performed By: #### C ANDIDA AURIS SCREEN BY PCR ####[facility] (DEFAULT)[address] [place] [address] CBC AND ELECTRONIC DIFFon Basophils (Bld) [#/Vol] K/uL 0.00 - 0.09 K/uL [facility] Basophils/100 WBC (Bld) 0.6 % [facility] Differential cell count method Nom (Bld) Electronic Differential [facility] Eosinophils (Bld) [#/Vol] 0.10 10*3/uL 0.00 - 0.48 K/uL [facility] Eosinophils/100 WBC (Bld) 2.1 % [facility] Erythrocyte distribution width (RBC) [Ratio] 13.4 % 10.9 - 14.3 % [facility] Hematocrit (Bld) [Volume fraction] 37.9 % Low 39.6 - 48.8 % [facility] Hemoglobin (Bld) [Mass/Vol] 12.4 g/dL Low 13.4 - 16.8 g/dL [facility] Immature granulocytes (Bld) [#/Vol] K/uL NINF - 0.07 K/uL [facility] Immature granulocytes/100 WBC (Bld) 0.6 % [facility] Interpretation and review of laboratory results Abnormal [facility] Lymphocytes (Bld) [#/Vol] 1.76 10*3/uL 0.83 - 3.57 K/uL [facility] Lymphocytes/100 WBC (Bld) 37.1 % [facility] MCH (RBC) [Entitic mass] 27.8 pg 26.1 - 33.3 pg [facility] MCHC (RBC) [Mass/Vol] 32.7 g/dL 31.9 - 36.5 g/dL [facility] MCV (RBC) [Entitic vol] 85.0 fL 79.0 - 94.5 fL [facility] Monocytes (Bld) [#/Vol] 0.66 10*3/uL 0.24 - 0.93 K/uL [facility] Monocytes/100 WBC (Bld) 13.9 % [facility] Neutrophils (Bld) [#/Vol] 2.16 10*3/uL 1.57 - 6.19 K/uL [facility] Nucleated RBC/100 WBC (Bld) [Ratio] 0.0 % NINF [facility] Platelet mean volume (Bld) [Entitic vol] 9.3 fL 8.7 - 12.3 fL [facility] Platelets (Bld) [#/Vol] 262 10*3/uL 146 - 337 K/uL [facility] RBC (Bld) [#/Vol] 4.46 10*6/uL [facility] Segmented neutrophils/100 WBC (Bld) 45.7 % [facility] WBC (Bld) [#/Vol] 4.74 10*3/uL 3.73 - 10. 10 K/uL [facility] Abs Baso Auto < Normal 0.00-0.09 [facility] Comment on above: Performed By: #### L [id number] ####[facility] (DEFAULT)[address] [place] [address] Basophils/100 WBC (Bld) 0.6 % Normal [facility] Comment on above: Performed By: #### L [id number] ####[facility] (DEFAULT)[address] [place] [address] DIFF STATUS Electronic Differential Normal [facility] Comment on above: Performed By: #### L [id number] ####[facility] (DEFAULT)[address] [place] [address] Eosinophils (Bld) [#/Vol] 0.10 10*3/uL Normal 0.00-0.48 [facility] Comment on above: Performed By: #### L [id number] ####[facility] (DEFAULT)[address] [place] [address] Eosinophils/100 WBC (Bld) 2.1 % Normal [facility] Comment on above: Performed By: #### L [id number] ####[facility] (DEFAULT)[address] [place] [address] Hematocrit (Bld) [Volume fraction] 37.9 % Low 39.6-48.8 [facility] Comment on above: Performed By: #### L [id number] ####[facility] (DEFAULT)[address] [place] [address], [place] [address] Hemoglobin (Bld) [Mass/Vol] 12.4 g/dL Low 13.4-16.8 [facility] Comment on above: Performed By: #### L [id number] ####[facility] (DEFAULT)[address] [place] [address], [place] [address] Immature Grans % 0.6 % Normal [facility] Comment on above: Performed By: #### L [id number] ####[facility] (DEFAULT)[address] [place] [address], [place] [address] Immature Grans Absolute < Normal <=0.07 [facility] Comment on above: Performed By: #### L [id number] ####[facility] (DEFAULT)[address] [place] [address] Lymphocytes (Bld) [#/Vol] 1.76 10*3/uL Normal 0.83-3.57 [facility] Comment on above: Performed By: #### L [id number] ####[facility] (DEFAULT)[address] [place] [address], [place] [address] Lymphocytes/100 WBC (Bld) 37.1 % Normal [facility] Comment on above: Performed By: #### L [id number] ####[facility] (DEFAULT)[address] [place] [address] MCV (RBC) [Entitic vol] 85.0 fL Normal 79.0-94.5 [facility] Comment on above: Performed By: #### L [id number] ####[facility] (DEFAULT)[address] [place] [address] [place] [address] Mean Cell Hgb 27.8 pg Normal 26.1-33.3 [facility] Comment on above: Performed By: #### L [id number] ####[facility] (DEFAULT)[address] [place] [address] Mean Cell Hgb Conc 32.7 g/dL Normal 31.9-36.5 [facility] Comment on above: Performed By: #### L [id number] ####[facility] (DEFAULT)[address] [place] [address] Monocytes (Bld) [#/Vol] 0.66 10*3/uL Normal 0.24-0.93 [facility] Comment on above: Performed By: #### L [id number] ####[facility] (DEFAULT)[address] [place] [address] Monocytes/100 WBC (Bld) 13.9 % Normal [facility] Comment on above: Performed By: #### L [id number] ####[facility] (DEFAULT)[address] [place] [address] Nucleated RBC 0.0 /100 WBC Normal <=0.2 [facility] Comment on above: Performed By: #### L [id number] ####[facility] (DEFAULT)[address] [place] [address] Platelet mean volume (Bld) [Entitic vol] 9.3 fL Normal 8.7-12.3 [facility] Comment on above: Performed By: #### L [id number] ####[facility] (DEFAULT)[address] [place] [address] Platelets (Bld) [#/Vol] 262 10*3/uL Normal 146-337 [facility] Comment on above: Performed By: #### L [id number] ####[facility] (DEFAULT)[address] [place] [address] RBC (Bld) [#/Vol] 4.46 10*6/uL Normal 4.38-5.83 [facility] Comment on above: Performed By: #### L [id number] ####[facility] (DEFAULT)[address] [facility] [place] [address] RBC Distribution 13.4 % Normal 10.9-14.3 [facility] Comment on above: Performed By: #### L [id number] ####[facility] (DEFAULT)[address] [facility] [place] [address] Segs + Bands Auto 45.7 % Normal [facility] Comment on above: Performed By: #### L [id number] ####[facility] (DEFAULT)[address] [facility] [place] [address] Segs + Bands,Absolute Auto 2.16 K/uL Normal 1.57-6.19 [facility] Comment on above: Performed By: #### L [id number] ####[facility] (DEFAULT)[address] [facility] [place] [address] WBC (Bld) [#/Vol] 4.74 10*3/uL Normal 3.73-10.10 [facility] Comment on above: Performed By: #### L [id number] ####[facility] (DEFAULT)[address] [place] [address] CHEM 6 (LYTES, BUN CREA)on 0 08-28-2023 Anion gap [Moles/Vol] 13 mmol/L 7 - 17 mmol/L [facility] Chloride [Moles/Vol] 103 mmol/L 98 - 10 8 mmol/L [facility] CO2 [Moles/Vol] 22 mmol/L 21 - 31 mmol/L [facility] Creatinine [Mass/Vol] 1.62 mg/dL High 0.70 - 1.30 mg/dL [facility] eGFR, CKD-EPI, Male 51 Low - PINF [facility] Interpretation and review of laboratory results Abnormal [facility] Potassium [Moles/Vol] 4.3 mmol/L 3.5 - 5.0 mmol/L [facility] Sodium [Moles/Vol] 134 mmol/L Low 135 - 145 mmol/L [facility] Urea nitrogen [Mass/Vol] 22 mg/dL 7 - 25 mg/dL [facility] Urea nitrogen/Creatinine [Mass ratio] 14 mg/mg [facility] Anion gap [Moles/Vol] 13 mmol/L Normal 7-17 [facility] Comment on above: Performed By: #### C HM6 ####[facility] (DEFAULT)[address] [place] [address] Chloride [Moles/Vol] 103 mmol/L Normal 98-108 [facility] Comment on above: Performed By: #### C HM6 ####[facility] (DEFAULT)[address] [facility] [place] [address] CO2 [Moles/Vol] 22 mmol/L Normal 21-31 [facility] Comment on above: Performed By: #### C HM6 ####[facility] (DEFAULT)[address] [facility] [place] [address] Creatinine [Mass/Vol] 1.62 mg/dL High 0.70-1.30 [facility] Comment on above: Performed By: #### C HM6 ####[facility] (DEFAULT)[address] [facility] [place] [address] GFR/1.73 sq M.predicted among non-blacks MDRD (S/P/Bld) [Vol rate/Area] 51 mL/min/{1.73_m2} Low >=60 [facility] Comment on above: Result Comment: Repo rted eGFR is based on the CKD-EPI 2020 equation using creatinine, age, and sex. Performed By: #### C HM6 ####[facility] (DEFAULT)[address] [place] [address] Potassium [Moles/Vol] 4.3 mmol/L Normal 3.5-5.0 [facility] Comment on above: Performed By: #### C HM6 ####[facility] (DEFAULT)[address] [place] [address] Sodium [Moles/Vol] 134 mmol/L Low 135-145 [facility] Comment on above: Performed By: #### C HM6 ####[facility] (DEFAULT)[address] [place] [address] Urea nitrogen [Mass/Vol] 22 mg/dL Normal 7-25 [facility] Comment on above: Performed By: #### C HM6 ####[facility] (DEFAULT)[address] [place] [address] Urea nitrogen/Creatinine [Mass ratio] 14 mg/mg Normal [facility] Comment on above: Performed By: #### C HM6 ####[facility] (DEFAULT)[address] [place] [address] IMMUNOCOMPROMISED RESPIRATOR Y PANELon 08-28-2023 Adenovirus - Pcr Not detected Normal Not Detected [facility] Comment on above: [...] assay. Performed By: #### I CRESP ####[facility] (DEFAULT)[address] [place] [address] Bordetella Parapertussis Not detected Normal Not Detected [facility] Comment on above: [...] acid assay. Performed By: #### I CRESP ####[facility] (DEFAULT)[address] [place] [address], [place] [address] Bordetella Pertussis Not detected Normal Not Detected [facility] Comment on above: [...] acid assay. Performed By: #### I CRESP ####[facility] (DEFAULT)[address] [place] [address] Chlamydia Pneumoniae Not detected Normal Not Detected [facility] Comment on above: [...] acid assay. Performed By: #### I CRESP ####[facility] (DEFAULT)[address] [place] [address], [place] [address] Coronavirus 229E Not detected Normal Not Detected [facility] Comment on above: [...] acid assay. Performed By: #### I CRESP ####[facility] (DEFAULT)[address] [place] [address], [place] [address] Coronavirus Hku1 Not detected Normal Not Detected [facility] Comment on above: [...] acid assay. Performed By: #### I CRESP ####[facility] (DEFAULT)[address] [place] [address], [place] [address] Coronavirus Nl63 Not detected Normal Not Detected [facility] Comment on above: [...] acid assay. Performed By: #### I CRESP ####[facility] (DEFAULT)[address] [place] [address], [place] [address] Coronavirus Oc43 Not detected Normal Not Detected [facility] Comment on above: [...] acid assay. Performed By: #### I CRESP ####[facility] (DEFAULT)[address] [place] [address], [place] [address] Influenza A - Pcr Not detected Normal Not Detected [facility] Comment on above: Order Comment: Viral [...] acid assay. Performed By: #### I CRESP ####[facility] (DEFAULT)[address] [place] [address], [place] [address] Influenza B - Pcr Not detected Normal Not Detected [facility] Comment on above: Order Comment: Viral [...] acid assay. Performed By: #### I CRESP ####[facility] (DEFAULT)[address] [place] [address], [place] [address] Metapneumovirus - Pcr Not detected Normal Not Detected [facility] Comment on above: [...] acid assay. Performed By: #### I CRESP ####[facility] (DEFAULT)[address] [place] [address], [place] [address] Mycoplasma Pneumoniae Not detected Normal Not Detected [facility] Comment on above: [...] acid assay. Performed By: #### I CRESP ####[facility] (DEFAULT)[address] [place] [address], [place] [address] Parainfluenza 1 - Pcr Not detected Normal Not Detected [facility] Comment on above: [...] acid assay. Performed By: #### I CRESP ####[facility] (DEFAULT)[address] [facility] [place] [address] Parainfluenza 2 - Pcr Not detected Normal Not Detected [facility] Comment on above: [...] acid assay. Performed By: #### I CRESP ####[facility] (DEFAULT)[address] [place] [address], [place] [address] Parainfluenza 3 - Pcr Not detected Normal Not Detected [facility] Comment on above: [...] acid assay. Performed By: #### I CRESP ####[facility] (DEFAULT)[address] [place] [address] Parainfluenza 4 - Pcr Not detected Normal Not Detected [facility] Comment on above: [...] acid assay. Performed By: #### I CRESP ####[facility] (DEFAULT)[address] [place] [address], [place] [address] Rhinovirus/Enterovir us - PCR Not detected Normal Not Detected [facility] Comment on above: [...] acid assay. Performed By: #### I CRESP ####[facility] (DEFAULT)[address] [place] [address] Rsv - Pcr Not detected Normal Not Detected [facility] Comment on above: [...] acid assay. Performed By: #### I CRESP ####[facility] (DEFAULT)[address] [place] [address] SARS-CoV-2 (COVID-19) RNA ESTELITA+probe Ql (Unsp spec) Not detected Normal NOT DETECTED [facility] Comment on above: [...] acid assay. Performed By: #### I CRESP ####[facility] [facility] (DEFAULT[facility] [place] [id number] Portable XR Chest Viewson Radiology Study observation (narrative) [facility] Respiratory virus DNA+RNA NA A+probe Nom (Unsp spec)Ordered By: Dayami Harris on 08-28-2023 Adenovirus DNA ESTELITA+probe Nom (Unsp spec) Not detected Not Detected [facility] B. parapertussis DNA ESTELITA+probe Ql (Unsp spec) Not detected [facility] B. pertussis DNA ESTELITA+probe Ql (Unsp spec) Not detected Not [facility]ed [facility] C. pneumoniae DNA ESTELITA+probe Ql (Unsp spec) Not detected Not Detected [facility] FLUAV RNA ESTELITA+probe Ql (Unsp spec) Not detected Not Detected [facility] FLUBV RNA ESTELITA+probe Ql (Unsp spec) Not detected Not Detected [facility] HCoV 229E RNA ESTELITA+non-probe Ql (Nph) Not detected Not Detected [facility] HCoV HKU1 RNA ESTELITA+non-probe Ql (Nph) Not detected Not Detected [facility] HCoV NL63 RNA ESTELITA+non-probe Ql (Nph) Not detected Not Detected [facility] HCoV OC43 RNA ESTELITA+non-probe Ql (Nph) Not detected Not Detected [facility] hMPV A RNA ESTELITA+probe Ql (Unsp spec) Not detected Not Detected [facility] Interpretation and review of laboratory results Normal [facility] M. pneumoniae DNA ESTELITA+probe Ql (Unsp spec) Not detected Not Detected [facility] Parainfluenza virus 1 RNA ESTELITA+probe Ql (Unsp spec) Not detected Not Detected [facility] Parainfluenza virus 2 RNA ESTELITA+probe Ql (Unsp spec) Not detected Not Detected [facility] Parainfluenza virus 3 RNA ESTELITA+probe Ql (Unsp spec) Not detected Not Detected [facility] Parainfluenza virus 4 RNA ESTELITA+probe Ql (Unsp spec) Not detected Not Detected [facility] Rhinovirus+Enterovir us RNA ESTELITA+probe Ql (Unsp spec) Not detected Not Detected [facility] RSV RNA ESTELITA+probe Ql (Unsp spec) Not detected Not Detected [facility] SARS-CoV-2 (COVID-19) RNA ESTELITA+probe Ql (Unsp spec) Not detected NOT DETECTED [facility] ALBUMINon 04-28-2023 Albumin [Mass/Vol] 4.0 g/dL Normal 3.4-5.0 [facility] Comment on above: Performed By: #### C MP #### [facility] [address] [place] [address] Dr. Dwight Waters ALKALINE PHOSPHAon ALP [Catalytic activity/Vol] 106 U/L Normal 46-116 [facility] Comment on above: Performed By: #### F [id number] #### [facility] [address] [place] [address] Dr. Dwight Waters BILIRUBIN CONJUGATED (DIRECT )on 04-28-2023 BILI, CONJUGATED 0.3 mg/dL Critically high 0.0-0.2 [facility] Comment on above: Performed By: #### C MP #### [facility] [address] [place] [address] Dr. Dwight Waters BILIRUBIN TOTALon 04-28-2023 Bilirubin [Mass/Vol] 1.4 mg/dL Critically high 0.2-1.0 [facility] Comment on above: Performed By: #### C MP #### [facility] [address] [place] [address] Dr. Dwight Waters BUNon 04-28-2023 Urea nitrogen [Mass/Vol] 12.0 mg/dL Normal 7.0-18.0 [facility] Comment on above: Performed By: #### U RTPCR #### [facility] [address] [place] [address] Dr. Dwight Waters CALCIUMon 04-28-2023 Calcium [Mass/Vol] 9.3 mg/dL Normal 8.5-10.1 [facility] Comment on above: Performed By: #### U RTPCR #### [facility] [address] [place] [address] Dr. Dwight Waters CBC AUTO DIFFon 04-28-2023 BASO # 0.1 103/ul Normal 0.0-0.1 [facility] Comment on above: Performed By: #### C BC #### [facility] [address] [place] [address] Dr. Dwight Waters Basophils/100 WBC (Bld) 0.9 % Normal 0.2-2.0 [facility] Comment on above: Performed By: #### C BC #### [facility] [address] [place] [address] Dr. Dwight Waters EO # 0.2 103/ul Normal 0.0-0.7 [facility] Comment on above: Performed By: #### C BC #### [facility] [address] [place] [address] Dr. Dwight Waters Eosinophils/100 WBC (Bld) 3.8 % Normal 0.9-7.0 [facility] Comment on above: Performed By: #### C BC #### [facility] [address] [place] [address] Dr. Dwight Waters Erythrocyte distribution width (RBC) [Ratio] 12.5 % Normal 11.0-15.0 [facility] Comment on above: Performed By: #### C BC #### [facility] [address] [place] [address] Dr. Dwight Waters Hematocrit (Bld) [Volume fraction] 49.8 % Normal 42.0-54.0 [facility] Comment on above: Performed By: #### C BC #### [facility] [address] [place] [address] Dr. Dwight Waters Hemoglobin (Bld) [Mass/Vol] 16.4 g/dL Normal 14.0-18.0 [facility] Comment on above: Performed By: #### C BC #### [facility] [address] [place] [address] Dr. Dwight Waters IG # 0.01 10e3/ul Normal 0.00-0.03 [facility] Comment on above: Performed By: #### C BC #### [facility] [address] [place] [address] Dr. Dwight Waters IG % 0.2 % Normal 0.0-0.5 [facility] Comment on above: Performed By: #### C BC #### [facility] [address] [place] [address] Dr. Dwight Waters LYMPH # 2.1 103/ul Normal 1.2-3.8 [facility] Comment on above: Performed By: #### C BC #### [facility] [address] [place] [address] Dr. Dwight Waters Lymphocytes/100 WBC (Bld) 39.1 % Normal 20.5-60.0 [facility] Comment on above: Performed By: #### C BC #### [facility] [address] [place] [address] Dr. Dwight Waters MANUAL DIFF REQ NO Normal [facility] Comment on above: Performed By: #### C BC #### [facility] [address] [place] [address] Dr. Dwight Waters MCH (RBC) [Entitic mass] 28.6 pg Normal 25.9-34.0 [facility] Comment on above: Performed By: #### C BC #### [facility] [address] [place] [address] Dr. Dwight Waters MCHC (RBC) [Mass/Vol] 32.9 g/dL Normal 29.9-35.2 [facility] Comment on above: Performed By: #### C BC #### [facility] [address] [place] [address] Dr. Dwight Waters MCV (RBC) [Entitic vol] 86.9 fL Normal 80.0-94.0 [facility] Comment on above: Performed By: #### C BC #### [facility] [address] [place] [address] Dr. Dwight Waters MONO # 0.6 103/ul Normal 0.3-0.8 [facility] Comment on above: Performed By: #### C BC #### [facility] [address] [place] [address] Dr. Dwight Waters Monocytes/100 WBC (Bld) 10.6 % Normal 1.7-12.0 [facility] Comment on above: Performed By: #### C BC #### [facility] [address] [place] [address] Dr. Dwight Waters NEUT # 2.5 103/ul Normal 1.4-6.5 [facility] Comment on above: Performed By: #### C BC #### [facility] [address] [place] [address] Dr. Dwight Waters Neutrophils/100 WBC (Bld) 45.4 % Normal 43.0-75.0 [facility] Comment on above: Performed By: #### C BC #### [facility] [address] [place] [address] Dr. Dwight Waters Platelet mean volume (Bld) [Entitic vol] 9.3 fL Critically low 9.5-13.5 [facility] Comment on above: Performed By: #### C BC #### [facility] [address] [place] [address] Dr. Dwight Waters PLT 248 103/ul Normal 150-450 [facility] Comment on above: Performed By: #### C BC #### [facility] [address] [place] [address] Dr. Dwight Waters RBC 5.73 106/ul Normal 4.70-6.10 [facility] Comment on above: Performed By: #### C BC #### [facility] [address] [place] [address] Dr. Dwight Waters WBC 5.5 103/ul Normal 4.0-11.0 [facility] Comment on above: Performed By: #### C BC #### [facility] [address] [place] [address] Dr. Dwight Waters CHLORIDEon 04-28-2023 Chloride [Moles/Vol] 107 mmol/L Normal 98-107 [facility] Comment on above: Performed By: #### U RTPCR #### [facility] [address] [place] [address] Dr. Dwight Waters CO2on 04-28-2023 CO2 [Moles/Vol] 28.9 mmol/L Normal 21.0-32.0 [facility] Comment on above: Performed By: #### U RTPCR #### [facility] [address] [place] [address] Dr. Dwight Waters CREATININEon 04-28-2023 Creatinine [Mass/Vol] 1.17 mg/dL Normal 0.70-1.30 [facility] Comment on above: Performed By: #### U RTPCR #### [facility] [address] [address] [address] Dwight Waters EGFR-AF UGANDAN >60 Normal >=60 [facility] Comment on above: Performed By: #### U RTPCR #### [facility] [address] [address] [address] Dwight Waters EGFR-NON AF UGANDAN >60 Normal >=60 [facility] Comment on above: Performed By: #### U RTPCR #### [facility] [address] [address] [address] Dwight Waters GGTon 04-28-2023 Gamma glutamyl transferase [Catalytic activity/Vol] 27 U/L Normal 15-85 [facility] Comment on above: Performed By: #### U RTPCR #### [facility] [address] [place] [address] Dr. Dwight Waters GLUCOSE BLOODon 04-28-2023 Glucose [Mass/Vol] 110 mg/dL Critically high 74-106 [facility] Comment on above: Performed By: #### U RTPCR #### [facility] [address] [address] [address] Dwight Waters MAGNESIUMon 04-28-2023 Magnesium [Mass/Vol] 1.7 mg/dL Critically low 1.8-2.4 [facility] Comment on above: Performed By: #### U RTPCR #### [facility] [address] [place] [address] Dr. Dwight Waters NAon 04-28-2023 Sodium [Moles/Vol] 144 mmol/L Normal 136-145 [facility] Comment on above: Performed By: #### U RTPCR #### [facility] [address] [address] [address] Dwight Waters PHOSPHORUSon 04-28-2023 Phosphate [Mass/Vol] 3.2 mg/dL Normal 2.6-4.7 [facility] Comment on above: Performed By: #### U RTPCR #### [facility] [address] [place] [address] Dr. Dwight Waters POTASSIUMon 04-28-2023 Potassium [Moles/Vol] 4.0 mmol/L Normal 3.5-5.1 [facility] Comment on above: Performed By: #### U RTPCR #### [facility] [address] [place] [address] Dr. Dwight OLVERAOTon 04-28-2023 AST [Catalytic activity/Vol] 25 U/L Normal 15-37 [facility] Comment on above: Performed By: #### C MP #### [facility] [address] [place] [address] Dr. Dwight Waters SGPTon 04-28-2023 ALT [Catalytic activity/Vol] 40 U/L Normal 16-63 [facility] Comment on above: Performed By: #### C MP #### [facility] [address] [place] [address] Dr. Dwight Waters URINE T PROTEIN CREAT RATIOo n 04-28-2023 Protein (U) [Mass/Vol] 10.1 mg/dL Normal <=12.0 [facility] Comment on above: Performed By: #### U RTPCR #### [facility] [address] [place] [address] Dr. Dwight Waters UR PROT CREAT RAT 0.14 Normal [facility] Comment on above: Performed By: #### U RTPCR #### [facility] [address] [place] [address] Dr. Dwight Waters URINE CREAT 74.40 mg/dL Normal 20.00-300.00 [facility] Comment on above: Performed By: #### U RTPCR #### [facility] [address] [place] [address] Dr. Dwight Waters BK VIRUS PCR QUANTon 023 BKV DNA QUANT PCR PLASMA Negative Normal Negative [facility] Comment on above: Result Comment: No B K DNA detected. . The linear range of the assay is 22 - 100,000,000 IU/mL. Performed By: #### B KVIRUS #### [facility] [address] [place] [address] Dr. Dwight Waters Log10 BKV DNA Plasma Normal [facility] Comment on above: Performed By: #### B KVIRUS #### [facility] [address] [place] [address] Dr. Dwight Waters FK506 (TACROLIMUS) WHOLE BLO ODon 03-04-2023 Tacrolimus (FK506), Blood 5.9 ng/mL Normal 2.0-20.0 [facility] Comment on above: Result Comment: Trou gh (immediately following transplant) 15.0 . Trough (steady state, 2 weeks or more after transplant): 3.0 - 8.0 . Performed by LC-MS/MS technology. Performed By: #### C MP #### [facility] [address] [place] [address] Dr. Dwight Waters ALBUMINon 03-02-2023 Albumin [Mass/Vol] 3.9 g/dL Normal 3.4-5.0 [facility] Comment on above: Performed By: #### U RTPCR #### [facility] [address] [place] [address] Dr. Dwight Waters ALKALINE PHOSPHAon ALP [Catalytic activity/Vol] 105 U/L Normal 46-116 [facility] Comment on above: Performed By: #### U RTPCR #### [facility] [address] [place] [address] Dr. Dwight Waters BILIRUBIN CONJUGATED (DIRECT )on 03-02-2023 BILI, CONJUGATED 0.2 mg/dL Normal 0.0-0.2 [facility] Comment on above: Performed By: #### U RTPCR #### [facility] [address] [place] [address] Dr. Dwight Waters BILIRUBIN TOTALon 03-02-2023 Bilirubin [Mass/Vol] 0.9 mg/dL Normal 0.2-1.0 [facility] Comment on above: Performed By: #### U RTPCR #### [facility] [address] [place] [address] Dr. Dwight Waters CBC AUTO DIFFon 03-02-2023 BASO # 0.1 103/ul Normal 0.0-0.1 [facility] Comment on above: Performed By: #### C BC #### [facility] [address] [place] [address] Dr. Dwight Waters Basophils/100 WBC (Bld) 0.9 % Normal 0.2-2.0 [facility] Comment on above: Performed By: #### C BC #### [facility] [address] [place] [address] Dr. Dwight Waters EO # 0.2 103/ul Normal 0.0-0.7 [facility] Comment on above: Performed By: #### C BC #### [facility] [address] [place] [address] Dr. Dwight Waters Eosinophils/100 WBC (Bld) 3.5 % Normal 0.9-7.0 [facility] Comment on above: Performed By: #### C BC #### [facility] [address] [place] [address] Dr. Dwight Waters Erythrocyte distribution width (RBC) [Ratio] 12.7 % Normal 11.0-15.0 [facility] Comment on above: Performed By: #### C BC #### [facility] [address] [place] [address] Dr. Dwight Waters Hematocrit (Bld) [Volume fraction] 48.2 % Normal 42.0-54.0 [facility] Comment on above: Performed By: #### C BC #### [facility] [address] [place] [address] Dr. Dwight Waters Hemoglobin (Bld) [Mass/Vol] 15.9 g/dL Normal 14.0-18.0 [facility] Comment on above: Performed By: #### C BC #### [facility] [address] [place] [address] Dr. Dwight Waters IG # 0.01 10e3/ul Normal 0.00-0.03 [facility] Comment on above: Performed By: #### C BC #### [facility] [address] [place] [address] Dr. Dwight Waters IG % 0.2 % Normal 0.0-0.5 [facility] Comment on above: Performed By: #### C BC #### [facility] [address] [place] [address] Dr. Dwight Waters LYMPH # 2.1 103/ul Normal 1.2-3.8 [facility] Comment on above: Performed By: #### C BC #### [facility] [address] [place] [address] Dr. Dwight Waters Lymphocytes/100 WBC (Bld) 37.4 % Normal 20.5-60.0 [facility] Comment on above: Performed By: #### C BC #### [facility] [address] [place] [address] Dr. Dwight Waters MANUAL DIFF REQ NO Normal [facility] Comment on above: Performed By: #### C BC #### [facility] [address] [place] [address] Dr. Dwight Waters MCH (RBC) [Entitic mass] 28.3 pg Normal 25.9-34.0 [facility] Comment on above: Performed By: #### C BC #### [facility] [address] [place] [address] Dr. Dwight Waters MCHC (RBC) [Mass/Vol] 33.0 g/dL Normal 29.9-35.2 [facility] Comment on above: Performed By: #### C BC #### [facility] [address] [place] [address] Dr. Dwight Waters MCV (RBC) [Entitic vol] 85.8 fL Normal 80.0-94.0 [facility] Comment on above: Performed By: #### C BC #### [facility] [address] [place] [address] Dr. Dwight Waters MONO # 0.6 103/ul Normal 0.3-0.8 [facility] Comment on above: Performed By: #### C BC #### [facility] [address] [place] [address] Dr. Dwight Waters Monocytes/100 WBC (Bld) 10.2 % Normal 1.7-12.0 [facility] Comment on above: Performed By: #### C BC #### [facility] [address] [place] [address] Dr. Dwight Waters NEUT # 2.7 103/ul Normal 1.4-6.5 [facility] Comment on above: Performed By: #### C BC #### [facility] [address] [place] [address] Dr. Dwight Waters Neutrophils/100 WBC (Bld) 47.8 % Normal 43.0-75.0 [facility] Comment on above: Performed By: #### C BC #### [facility] [address] [place] [address] Dr. Dwight Waters Platelet mean volume (Bld) [Entitic vol] 9.3 fL Critically low 9.5-13.5 [facility] Comment on above: Performed By: #### C BC #### [facility] [address] [place] [address] Dr. Dwight Waters PLT 241 103/ul Normal 150-450 [facility] Comment on above: Performed By: #### C BC #### [facility] [address] [place] [address] Dr. Dwight Watesr RBC 5.62 106/ul Normal 4.70-6.10 [facility] Comment on above: Performed By: #### C BC #### [facility] [address] [place] [address] Dr. Dwight Waters WBC 5.7 103/ul Normal 4.0-11.0 [facility] Comment on above: Performed By: #### C BC #### [facility] [address] [place] [address] Dr. Dwight Waters GGTon 03-02-2023 Gamma glutamyl transferase [Catalytic activity/Vol] 25 U/L Normal 15-85 [facility] Comment on above: Performed By: #### U RTPCR #### [facility] [address] [place] [address] Dr. Dwight Waters MAGNESIUMon 03-02-2023 Magnesium [Mass/Vol] 1.6 mg/dL Critically low 1.8-2.4 [facility] Comment on above: Performed By: #### U RTPCR #### [facility] [address] [place] [address] Dr. Dwight Waters PHOSPHORUSon 03-02-2023 Phosphate [Mass/Vol] 3.6 mg/dL Normal 2.6-4.7 [facility] Comment on above: Performed By: #### U RTPCR #### [facility] [address] [place] [address] Dr. Dwight Waters PROF CHEM 8 (BAS METB)on Anion gap [Moles/Vol] 9.4 mmol/L Normal [facility] Comment on above: Performed By: #### U RTPCR #### [facility] [address] [place] [address] Dr. Dwight Waters Calcium [Mass/Vol] 9.3 mg/dL Normal 8.5-10.1 [facility] Comment on above: Performed By: #### U RTPCR #### [facility] [address] [place] [address] Dr. Dwight Waters Chloride [Moles/Vol] 108 mmol/L Critically high 98-107 [facility] Comment on above: Performed By: #### U RTPCR #### [facility] [address] [place] [address] Dr. Dwight Waters CO2 [Moles/Vol] 27.2 mmol/L Normal 21.0-32.0 [facility] Comment on above: Performed By: #### U RTPCR #### [facility] [address] [place] [address] Dr. Dwight Waters Creatinine [Mass/Vol] 1.12 mg/dL Normal 0.70-1.30 [facility] Comment on above: Performed By: #### U RTPCR #### [facility] [address] [place] [address] Dr. Dwight Waters EGFR-AF UGANDAN >60 Normal >=60 [facility] Comment on above: Performed By: #### U RTPCR #### [facility] [address] [place] [address] Dr. Dwight Waters EGFR-NON AF UGANDAN >60 Normal >=60 [facility] Comment on above: Performed By: #### U RTPCR #### [facility] [address] [place] [address] Dr. Dwight Waters Glucose [Mass/Vol] 113 mg/dL Critically high 74-106 [facility] Comment on above: Performed By: #### U RTPCR #### [facility] [address] [place] [address] Dr. Dwight Waters Potassium [Moles/Vol] 3.6 mmol/L Normal 3.5-5.1 [facility] Comment on above: Performed By: #### U RTPCR #### [facility] [address] [place] [address] Dr. Dwight Waters Sodium [Moles/Vol] 141 mmol/L Normal 136-145 [facility] Comment on above: Performed By: #### U RTPCR #### [facility] [address] [place] [address] Dr. Dwight Waters Urea nitrogen [Mass/Vol] 14.0 mg/dL Normal 7.0-18.0 [facility] Comment on above: Performed By: #### U RTPCR #### [facility] [address] [place] [address] Dr. Dwight Waters Urea nitrogen/Creatinine [Mass ratio] 12.5 mg/mg Normal [facility] Comment on above: Performed By: #### U RTPCR #### [facility] [address] [place] [address] Dr. Dwight Waters SGOTon 03-02-2023 AST [Catalytic activity/Vol] 20 U/L Normal 15-37 [facility] Comment on above: Performed By: #### U RTPCR #### [facility] [address] [place] [address] Dr. Dwight Waters SGPTon 03-02-2023 ALT [Catalytic activity/Vol] 30 U/L Normal 16-63 [facility] [facility] Comment on above: Performed By: #### U RTPCR #### [facility] [address] [place] [address] Dr. Dwight Waters URINE T PROTEIN CREAT RATIOo n 03-02-2023 Protein (U) [Mass/Vol] 10.3 mg/dL Normal <=12.0 [facility] Comment on above: Performed By: #### U RTPCR #### [facility] [address] [place] [address] Dr. Dwight Waters UR PROT CREAT RAT 0.15 Normal [facility] Comment on above: Performed By: #### U RTPCR #### [facility] [address] [place] [address] Dr. Dwight Waters URINE CREAT 68.96 mg/dL Normal 20.00-300.00 [facility] Comment on above: Performed By: #### U RTPCR #### [facility] [address] [place] [address] Dr. Dwight Waters BK VIRUS PCR QUANTon 023 BKV DNA QUANT PCR PLASMA Negative Normal Negative [facility] Comment on above: Result Comment: No B K DNA detected. . The linear range of the assay is 22 - 100,000,000 IU/mL. Performed By: #### C MP #### [facility] [address] [place] [address] Dr. Dwight Waters Log10 BKV DNA Plasma Normal [facility] Comment on above: Performed By: #### C MP #### [facility] [address] [place] [address] Dr. Dwight Waters FK506 (TACROLIMUS) WHOLE BLO ODon 12-31-2022 Tacrolimus (FK506), Blood 5.6 ng/mL Normal 2.0-20.0 [facility] Comment on above: Result Comment: Trou gh (immediately following transplant) 15.0 . Trough (steady state, 2 weeks or more after transplant): 3.0 - 8.0 . Performed by LC-MS/MS technology. Performed By: #### C MP #### [facility] [address] [place] [address] Dr. Dwight Waters ALKALINE PHOSPHAon ALP [Catalytic activity/Vol] 96 U/L Normal 46-116 [facility] Comment on above: Performed By: #### C BC #### [facility] [address] [place] [address] Dr. Dwight Waters BILIRUBIN CONJUGATED (DIRECT )on 12-29-2022 BILI, CONJUGATED 0.3 mg/dL Critically high 0.0-0.2 [facility] Comment on above: Performed By: #### C BC #### [facility] [address] [place] [address] Dr. Dwight Waters BILIRUBIN TOTALon 12-29-2022 Bilirubin [Mass/Vol] 1.1 mg/dL Critically high 0.2-1.0 [facility] Comment on above: Performed By: #### C BC #### [facility] [address] [place] [address] Dr. Dwight Waters CBC AUTO DIFFon 12-29-2022 BASO # 0.1 103/ul Normal 0.0-0.1 [facility] Comment on above: Performed By: #### C MP #### [facility] [address] [place] [address] Dr. Dwight Waters Basophils/100 WBC (Bld) 0.8 % Normal 0.2-2.0 [facility] Comment on above: Performed By: #### C MP #### [facility] [address] [place] [address] Dr. Dwight Waters EO # 0.2 103/ul Normal 0.0-0.7 [facility] Comment on above: Performed By: #### C MP #### [facility] [address] [place] [address] Dr. Dwight Waters Eosinophils/100 WBC (Bld) 3.0 % Normal 0.9-7.0 [facility] Comment on above: Performed By: #### C MP #### [facility] [address] [place] [address] Dr. Dwight Waters Erythrocyte distribution width (RBC) [Ratio] 12.9 % Normal 11.0-15.0 [facility] Comment on above: Performed By: #### C MP #### [facility] [address] [place] [address] Dr. Dwight Waters Hematocrit (Bld) [Volume fraction] 46.9 % Normal 42.0-54.0 [facility] Comment on above: Performed By: #### C MP #### [facility] [address] [place] [address] Dr. Dwight Waters Hemoglobin (Bld) [Mass/Vol] 16.1 g/dL Normal 14.0-18.0 [facility] Comment on above: Performed By: #### C MP #### [facility] [address] [place] [address] Dr. Dwight Waters IG # 0.01 10e3/ul Normal 0.00-0.03 [facility] Comment on above: Performed By: #### C MP #### [facility] [address] [place] [address] Dr. Dwight Waters IG % 0.2 % Normal 0.0-0.5 [facility] Comment on above: Performed By: #### C MP #### [facility] [address] [place] [address] Dr. Dwight Waters LYMPH # 1.8 103/ul Normal 1.2-3.8 [facility] Comment on above: Performed By: #### C MP #### [facility] [address] [place] [address] Dr. Dwight Waters Lymphocytes/100 WBC (Bld) 27.9 % Normal 20.5-60.0 [facility] Comment on above: Performed By: #### C MP #### [facility] [address] [place] [address] Dr. Dwight Waters MANUAL DIFF REQ NO Normal [facility] Comment on above: Performed By: #### C MP #### [facility] [address] [place] [address] Dr. Dwight Waters MCH (RBC) [Entitic mass] 28.5 pg Normal 25.9-34.0 [facility] Comment on above: Performed By: #### C MP #### [facility] [address] [place] [address] Dr. Dwight Waters MCHC (RBC) [Mass/Vol] 34.3 g/dL Normal 29.9-35.2 [facility] Comment on above: Performed By: #### C MP #### [facility] [address] [place] [address] Dr. Dwight Waters MCV (RBC) [Entitic vol] 83.2 fL Normal 80.0-94.0 [facility] Comment on above: Performed By: #### C MP #### [facility] [address] [address] [address] Dwight Waters MONO # 0.5 103/ul Normal 0.3-0.8 [facility] Comment on above: Performed By: #### C MP #### [facility] [address] [address] [address] Dwight Waters Monocytes/100 WBC (Bld) 8.1 % Normal 1.7-12.0 [facility] Comment on above: Performed By: #### C MP #### [facility] [address] [place] [address] Dr. Dwight Waters NEUT # 3.8 103/ul Normal 1.4-6.5 [facility] Comment on above: Performed By: #### C MP #### [facility] [address] [place] [address] Dr. Dwight Waters Neutrophils/100 WBC (Bld) 60.0 % Normal 43.0-75.0 [facility] Comment on above: Performed By: #### C MP #### [facility] [address] [place] [address] Dr. Dwight Waters Platelet mean volume (Bld) [Entitic vol] 9.2 fL Critically low 9.5-13.5 [facility] Comment on above: Performed By: #### C MP #### [facility] [address] [place] [address] Dr. Dwight Waters PLT 225 103/ul Normal 150-450 [facility] Comment on above: Performed By: #### C MP #### [facility] [address] [place] [address] Dr. Dwight Waters RBC 5.64 106/ul Normal 4.70-6.10 [facility] Comment on above: Performed By: #### C MP #### [facility] [address] [place] [address] Dr. Dwight Waters WBC 6.3 103/ul Normal 4.0-11.0 [facility] Comment on above: Performed By: #### C MP #### [facility] [address] [address] [address] Dwight Waters GGTon 12-29-2022 Gamma glutamyl transferase [Catalytic activity/Vol] 24 U/L Normal 15-85 [facility] Comment on above: Performed By: #### C MP #### [facility] [address] [place] [address] Dr. Dwight Waters LIPID PROFILEon 12-29-2022 CHOL-HDL RATIO NORM SEE BELOW Normal [facility] Comment on above: Result Comment: 3.3 - 4.4 LOW RISK 4.4 - 7.1 AVERAGE RISK 7.1 - 11.0 MODERATE RISK >11.0 HIGH RISK Performed By: #### U RTPCR #### [facility] [address] [place] [address] Dr. Dwight Waters Cholesterol [Mass/Vol] 87 mg/dL Normal <=200 [facility] Comment on above: Performed By: #### U RTPCR #### [facility] [address] [place] [address] Dr. Dwight Waters Cholesterol in HDL [Mass/Vol] 44 mg/dL Normal 40-60 [facility] Comment on above: Performed By: #### U RTPCR #### [facility] [address] [place] [address] Dr. Dwight Waters Cholesterol in LDL [Mass/Vol] 33.0 mg/dL Normal [facility] Comment on above: Performed By: #### U RTPCR #### [facility] [address] [place] [address] Dr. Dwight Waters Cholesterol.total/Ch olesterol in HDL [Mass ratio] 2.0 {ratio} Normal [facility] Comment on above: Performed By: #### U RTPCR #### [facility] [address] [place] [address] Dr. Dwight Waters HDL NORMAL > or = 60 mg/dl - LO W CARDIOVASCULAR RISK <40 mg/dl - HIGH CARDIOVASCULAR RISK Normal [facility] Comment on above: Performed By: #### U RTPCR #### [facility] [address] [place] [address] Dr. Dwight Waters LDL CALC NORMAL SEE BELOW Normal [facility] Comment on above: Result Comment: <100 mg/dl OPTIMAL 100 - 129 mg/dl NEAR OR ABOVE OPTIMAL 130 - 159 mg/dl BORDERLINE HIGH 160 - 189 mg/dl HIGH >190 mg/dl VERY HIGH Performed By: #### U RTPCR #### [facility] [address] [address] [address] Dwight Waters Triglyceride [Mass/Vol] 50 mg/dL Normal <=150 [facility] Comment on above: Performed By: #### U RTPCR #### [facility] [address] [address] [address] Dwight Waters VLDL CALC 10.0 mg/dL Normal [facility] Comment on above: Performed By: #### U RTPCR #### [facility] [address] [place] [address] Dr. Dwight Waters MAGNESIUMon 12-29-2022 Magnesium [Mass/Vol] 1.6 mg/dL Critically low 1.8-2.4 [facility] Comment on above: Performed By: #### C BC #### [facility] [address] [address] [address] Dwight Waters RENAL FUNCTION PANELon 12-29 Albumin [Mass/Vol] 3.9 g/dL Normal 3.4-5.0 [facility] Comment on above: Performed By: #### C BC #### [facility] [address] [place] [address] Dr. Dwight Waters Calcium [Mass/Vol] 9.2 mg/dL Normal 8.5-10.1 [facility] Comment on above: Performed By: #### C BC #### [facility] [address] [address] [address] Dwight Waters Chloride [Moles/Vol] 109 mmol/L Critically high 98-107 [facility] Comment on above: Performed By: #### C BC #### [facility] [address] [address] [address] Dwight Waters CO2 [Moles/Vol] 27.0 mmol/L Normal 21.0-32.0 [facility] Comment on above: Performed By: #### C BC #### [facility] [address] [address] [address] Dwight Waters Creatinine [Mass/Vol] 1.02 mg/dL Normal 0.70-1.30 [facility] Comment on above: Performed By: #### C BC #### [facility] [address] [address] [address] Dwight Waters EGFR-AF UGANDAN >60 Normal >=60 [facility] Comment on above: Performed By: #### C BC #### [facility] [address] [address] [address] Dwight Waters EGFR-NON AF UGANDAN >60 Normal >=60 [facility] Comment on above: Performed By: #### C BC #### [facility] [address] [place] [address] Dr. Dwight Waters Glucose [Mass/Vol] 117 mg/dL Critically high 74-106 [facility] Comment on above: Performed By: #### C BC #### [facility] [address] [place] [address] Dr. Dwight Waters Phosphate [Mass/Vol] 3.2 mg/dL Normal 2.6-4.7 [facility] Comment on above: Performed By: #### C BC #### [facility] [address] [place] [address] Dr. Dwight Waters Potassium [Moles/Vol] 4.1 mmol/L Normal 3.5-5.1 [facility] Comment on above: Performed By: #### C BC #### [facility] [address] [place] [address] Dr. Dwight Waters Sodium [Moles/Vol] 144 mmol/L Normal 136-145 [facility] Comment on above: Performed By: #### C BC #### [facility] [address] [place] [address] Dr. Dwight Waters Urea nitrogen [Mass/Vol] 13.0 mg/dL Normal 7.0-18.0 [facility] Comment on above: Performed By: #### C BC #### [facility] [address] [place] [address] Dr. Dwight Waters SGOTon 12-29-2022 AST [Catalytic activity/Vol] 21 U/L Normal 15-37 [facility] Comment on above: Performed By: #### C BC #### [facility] [address] [place] [address] Dr. Dwight Waters SGPTon 12-29-2022 ALT [Catalytic activity/Vol] 32 U/L Normal 16-63 [facility] Comment on above: Performed By: #### C BC #### [facility] [address] [place] [address] Dr. Dwight Waters URINE T PROTEIN CREAT RATIOo n 12-29-2022 Protein (U) [Mass/Vol] 14.3 mg/dL Critically high <=12.0 [facility] Comment on above: Performed By: #### U RTPCR #### [facility] [address] [place] [address] Dr. Dwight Waters UR PROT CREAT RAT 0.17 Normal [facility] Comment on above: Performed By: #### U RTPCR #### [facility] [address] [place] [address] Dr. Dwight Waters URINE CREAT 86.58 mg/dL Normal 20.00-300.00 [facility] Comment on above: Performed By: #### U RTPCR #### [facility] [address] [place] [address] Dr. Dwight Waters FK506 (TACROLIMUS) WHOLE BLO ODon 11-06-2022 Tacrolimus (FK506), Blood 4.9 ng/mL Normal 2.0-20.0 [facility] Comment on above: Result Comment: Trou gh (immediately following transplant) 15.0 . Trough (steady state, 2 weeks or more after transplant): 3.0 - 8.0 . Performed by LC-MS/MS technology. Performed By: #### U RTPCR #### [facility] [address] [place] [address] Dr. Dwight Waters ALKALINE PHOSPHAon ALP [Catalytic activity/Vol] 86 U/L Normal 46-116 [facility] Comment on above: Performed By: #### U RTPCR #### [facility] [address] [place] [address] Dr. Dwight Waters BILIRUBIN CONJUGATED (DIRECT )on 11-04-2022 BILI, CONJUGATED 0.2 mg/dL Normal 0.0-0.2 [facility] Comment on above: Performed By: #### U RTPCR #### [facility] [address] [place] [address] Dr. Dwight Waters BILIRUBIN TOTALon 11-04-2022 Bilirubin [Mass/Vol] 0.8 mg/dL Normal 0.2-1.0 [facility] Comment on above: Performed By: #### U RTPCR #### [facility] [address] [place] [address] Dr. Dwight Waters CBC AUTO DIFFon 11-04-2022 BASO # 0.1 103/ul Normal 0.0-0.1 [facility] Comment on above: Performed By: #### U RTPCR #### [facility] [address] [place] [address] Dr. Dwight Waters Basophils/100 WBC (Bld) 0.9 % Normal 0.2-2.0 [facility] Comment on above: Performed By: #### U RTPCR #### [facility] [address] [place] [address] Dr. Dwight Waters EO # 0.2 103/ul Normal 0.0-0.7 [facility] Comment on above: Performed By: #### U RTPCR #### [facility] [address] [place] [address] Dr. Dwight Waters Eosinophils/100 WBC (Bld) 3.7 % Normal 0.9-7.0 [facility] Comment on above: Performed By: #### U RTPCR #### [facility] [address] [place] [address] Dr. Dwight Waters Erythrocyte distribution width (RBC) [Ratio] 12.9 % Normal 11.0-15.0 [facility] Comment on above: Performed By: #### U RTPCR #### [facility] [address] [place] [address] Dr. Dwight Waters Hematocrit (Bld) [Volume fraction] 48.3 % Normal 42.0-54.0 [facility] Comment on above: Performed By: #### U RTPCR #### [facility] [address] [place] [address] Dr. Dwight Waters Hemoglobin (Bld) [Mass/Vol] 15.6 g/dL Normal 14.0-18.0 [facility] Comment on above: Performed By: #### U RTPCR #### [facility] [address] [place] [address] Dr. Dwight Waters IG # 0.01 10e3/ul Normal 0.00-0.03 [facility] Comment on above: Performed By: #### U RTPCR #### [facility] [address] [place] [address] Dr. Dwight Waters IG % 0.2 % Normal 0.0-0.5 [facility] Comment on above: Performed By: #### U RTPCR #### [facility] [address] [place] [address] Dr. Dwight Waters LYMPH # 1.9 103/ul Normal 1.2-3.8 [facility] Comment on above: Performed By: #### U RTPCR #### [facility] [address] [place] [address] Dr. Dwight Waters Lymphocytes/100 WBC (Bld) 33.0 % Normal 20.5-60.0 [facility] Comment on above: Performed By: #### U RTPCR #### [facility] [address] [place] [address] Dr. Dwight Waters MANUAL DIFF REQ NO Normal [facility] Comment on above: Performed By: #### U RTPCR #### [facility] [address] [place] [address] Dr. Dwight Waters MCH (RBC) [Entitic mass] 27.6 pg Normal 25.9-34.0 [facility] Comment on above: Performed By: #### U RTPCR #### [facility] [address] [place] [address] Dr. Dwight Waters MCHC (RBC) [Mass/Vol] 32.3 g/dL Normal 29.9-35.2 [facility] Comment on above: Performed By: #### U RTPCR #### [facility] [address] [place] [address] Dr. Dwight Waters MCV (RBC) [Entitic vol] 85.5 fL Normal 80.0-94.0 [facility] Comment on above: Performed By: #### U RTPCR #### [facility] [address] [place] [address] Dr. Dwight Waters MONO # 0.5 103/ul Normal 0.3-0.8 [facility] Comment on above: Performed By: #### U RTPCR #### [facility] [address] [place] [address] Dr. Dwight Waters Monocytes/100 WBC (Bld) 8.8 % Normal 1.7-12.0 [facility] Comment on above: Performed By: #### U RTPCR #### [facility] [address] [place] [address] Dr. Dwight Waters NEUT # 3.1 103/ul Normal 1.4-6.5 [facility] Comment on above: Performed By: #### U RTPCR #### [facility] [address] [place] [address] Dr. Dwight Waters Neutrophils/100 WBC (Bld) 53.4 % Normal 43.0-75.0 [facility] Comment on above: Performed By: #### U RTPCR #### [facility] [address] [place] [address] Dr. Dwight Waters Platelet mean volume (Bld) [Entitic vol] 9.2 fL Critically low 9.5-13.5 [facility] Comment on above: Performed By: #### U RTPCR #### [facility] [address] [place] [address] Dr. Dwight Waters PLT 255 103/ul Normal 150-450 [facility] Comment on above: Performed By: #### U RTPCR #### [facility] [address] [place] [address] Dr. Dwight Waters RBC 5.65 106/ul Normal 4.70-6.10 [facility] Comment on above: Performed By: #### U RTPCR #### [facility] [address] [place] [address] Dr. Dwight Waters WBC 5.7 103/ul Normal 4.0-11.0 [facility] Comment on above: Performed By: #### U RTPCR #### [facility] [address] [place] [address] Dr. Dwight Waters GGTon 11-04-2022 Gamma glutamyl transferase [Catalytic activity/Vol] 22 U/L Normal 15-85 [facility] Comment on above: Performed By: #### U RTPCR #### [facility] [address] [place] [address] Dr. Dwight Waters MAGNESIUMon 11-04-2022 Magnesium [Mass/Vol] 1.8 mg/dL Normal 1.8-2.4 [facility] Comment on above: Performed By: #### U RTPCR #### [facility] [address] [place] [address] Dr. Dwight Waters RENAL FUNCTION PANELon 11-04 Albumin [Mass/Vol] 3.8 g/dL Normal 3.4-5.0 [facility] Comment on above: Performed By: #### U RTPCR #### [facility] [address] [place] [address] Dr. Dwight Waters Calcium [Mass/Vol] 9.3 mg/dL Normal 8.5-10.1 [facility] Comment on above: Performed By: #### U RTPCR #### [facility] [address] [place] [address] Dr. Dwight Waters Chloride [Moles/Vol] 107 mmol/L Normal 98-107 [facility] Comment on above: Performed By: #### U RTPCR #### [facility] [address] [place] [address] Dr. Dwight Waters CO2 [Moles/Vol] 29.2 mmol/L Normal 21.0-32.0 [facility] Comment on above: Performed By: #### U RTPCR #### [facility] [address] [address] [address] Dwight Waters Creatinine [Mass/Vol] 1.07 mg/dL Normal 0.70-1.30 [facility] Comment on above: Performed By: #### U RTPCR #### [facility] [address] [place] [address] Dr. Dwight Waters EGFR-AF UGANDAN >60 Normal >=60 [facility] Comment on above: Performed By: #### U RTPCR #### [facility] [address] [place] [address] Dr. Dwight Waters EGFR-NON AF UGANDAN >60 Normal >=60 [facility] Comment on above: Performed By: #### U RTPCR #### [facility] [address] [place] [address] Dr. Dwight Waters Glucose [Mass/Vol] 106 mg/dL Normal 74-106 [facility] Comment on above: Performed By: #### U RTPCR #### [facility] [address] [place] [address] Dr. Dwight Waters Phosphate [Mass/Vol] 2.8 mg/dL Normal 2.6-4.7 [facility] Comment on above: Performed By: #### U RTPCR #### [facility] [address] [place] [address] Dr. Dwight Waters Potassium [Moles/Vol] 4.1 mmol/L Normal 3.5-5.1 [facility] Comment on above: Performed By: #### U RTPCR #### [facility] [address] [place] [address] Dr. Dwight Wtaers Sodium [Moles/Vol] 143 mmol/L Normal 136-145 [facility] Comment on above: Performed By: #### U RTPCR #### [facility] [address] [place] [address] Dr. Dwight Waters Urea nitrogen [Mass/Vol] 12.0 mg/dL Normal 7.0-18.0 [facility] Comment on above: Performed By: #### U RTPCR #### [facility] [address] [place] [address] Dr. Dwight [place] AST [Catalytic activity/Vol] 19 U/L Normal 15-37 [facility] Comment on above: Performed By: #### U RTPCR #### [facility] [address] [place] [address] Dr. Dwight Waters SGPTon 11-04-2022 ALT [Catalytic activity/Vol] 28 U/L Normal 16-63 [facility] Comment on above: Performed By: #### U RTPCR #### [facility] [address] [place] [address] Dr. Dwight Waters URINE T PROTEIN CREAT RATIOo n 11-04-2022 Protein (U) [Mass/Vol] 10.7 mg/dL Normal <=12.0 [facility] Comment on above: Performed By: #### U RTPCR #### [facility] [address] [place] [address] Dr. Dwight Waters UR PROT CREAT RAT 0.13 Normal [facility] Comment on above: Performed By: #### U RTPCR #### [facility] [address] [place] [address] Dr. Dwight Waters URINE CREAT 84.50 mg/dL Normal 20.00-300.00 [facility] Comment on above: Performed By: #### U RTPCR #### [facility] [address] [place] [address] Dr. Dwight Waters FK506 (TACROLIMUS) WHOLE BLO ODon 09-18-2022 Tacrolimus (FK506), Blood 4.6 ng/mL Normal 2.0-20.0 [facility] Comment on above: Result Comment: Trou gh (immediately following transplant) 15.0 . Trough (steady state, 2 weeks or more after transplant): 3.0 - 8.0 . Performed by LC-MS/MS technology. Performed By: #### U RTPCR #### [facility] [address] [place] [address] Dr. Dwight Waters BK VIRUS PCR QUANTon 022 BKV DNA QUANT PCR PLASMA Negative Normal Negative [facility] Comment on above: Result Comment: No B K DNA detected. . The linear range of the assay is 22 - 100,000,000 IU/mL. Performed By: #### U RTPCR #### [facility] [address] [place] [address] Dr. Dwight Waters Log10 BKV DNA Plasma Normal [facility] Comment on above: Performed By: #### U RTPCR #### [facility] [address] [place] [address] Dr. Dwight Waters ALKALINE PHOSPHAon ALP [Catalytic activity/Vol] 92 U/L Normal 46-116 [facility] Comment on above: Performed By: #### U RTPCR #### [facility] [address] [place] [address] Dr. Dwight Waters BILIRUBIN CONJUGATED (DIRECT )on 09-15-2022 BILI, CONJUGATED 0.3 mg/dL Critically high 0.0-0.2 [facility] Comment on above: Performed By: #### U RTPCR #### [facility] [address] [place] [address] Dr. Dwight Waters BILIRUBIN TOTALon 09-15-2022 Bilirubin [Mass/Vol] 1.1 mg/dL Critically high 0.2-1.0 [facility] Comment on above: Performed By: #### U RTPCR #### [facility] [address] [place] [address] Dr. Dwight Waters CBC AUTO DIFFon 09-15-2022 BASO # 0.1 103/ul Normal 0.0-0.1 [facility] Comment on above: Performed By: #### C BC #### [facility] [address] [place] [address] Dr. Dwight Waters Basophils/100 WBC (Bld) 0.8 % Normal 0.2-2.0 [facility] Comment on above: Performed By: #### C BC #### [facility] [address] [place] [address] Dr. Dwight Waters EO # 0.2 103/ul Normal 0.0-0.7 [facility] Comment on above: Performed By: #### C BC #### [facility] [address] [place] [address] Dr. Dwight Waters Eosinophils/100 WBC (Bld) 3.5 % Normal 0.9-7.0 [facility] Comment on above: Performed By: #### C BC #### [facility] [address] [place] [address] Dr. Dwight Waters Erythrocyte distribution width (RBC) [Ratio] 13.0 % Normal 11.0-15.0 [facility] Comment on above: Performed By: #### C BC #### [facility] [address] [place] [address] Dr. Dwight Waters Hematocrit (Bld) [Volume fraction] 50.0 % Normal 42.0-54.0 [facility] Comment on above: Performed By: #### C BC #### [facility] [address] [place] [address] Dr. Dwight Waters Hemoglobin (Bld) [Mass/Vol] 16.0 g/dL Normal 14.0-18.0 [facility] Comment on above: Performed By: #### C BC #### [facility] [address] [place] [address] Dr. Dwight Waters IG # 0.02 10e3/ul Normal 0.00-0.03 [facility] Comment on above: Performed By: #### C BC #### [facility] [address] [place] [address] Dr. Dwight Waters IG % 0.3 % Normal 0.0-0.5 [facility] Comment on above: Performed By: #### C BC #### [facility] [address] [place] [address] Dr. Dwight Waters LYMPH # 1.8 103/ul Normal 1.2-3.8 [facility] Comment on above: Performed By: #### C BC #### [facility] [address] [place] [address] Dr. Dwight Waters Lymphocytes/100 WBC (Bld) 26.5 % Normal 20.5-60.0 [facility] Comment on above: Performed By: #### C BC #### [facility] [address] [place] [address] Dr. Dwight Waters MANUAL DIFF REQ NO Normal [facility] Comment on above: Performed By: #### C BC #### [facility] [address] [place] [address] Dr. Dwight Waters MCH (RBC) [Entitic mass] 28.1 pg Normal 25.9-34.0 [facility] Comment on above: Performed By: #### C BC #### [facility] [address] [place] [address] Dr. Dwight Waters MCHC (RBC) [Mass/Vol] 32.0 g/dL Normal 29.9-35.2 [facility] Comment on above: Performed By: #### C BC #### [facility] [address] [place] [address] Dr. Dwight Waters MCV (RBC) [Entitic vol] 87.9 fL Normal 80.0-94.0 [facility] Comment on above: Performed By: #### C BC #### [facility] [address] [place] [address] Dr. Dwight Waters MONO # 0.5 103/ul Normal 0.3-0.8 [facility] Comment on above: Performed By: #### C BC #### [facility] [address] [place] [address] Dr. Dwight Waters Monocytes/100 WBC (Bld) 8.1 % Normal 1.7-12.0 [facility] Comment on above: Performed By: #### C BC #### [facility] [address] [place] [address] Dr. Dwight Waters NEUT # 4.0 103/ul Normal 1.4-6.5 [facility] Comment on above: Performed By: #### C BC #### [facility] [address] [place] [address] Dr. Dwight Waters Neutrophils/100 WBC (Bld) 60.8 % Normal 43.0-75.0 [facility] Comment on above: Performed By: #### C BC #### [facility] [address] [place] [address] Dr. Dwight Waters Platelet mean volume (Bld) [Entitic vol] 9.4 fL Critically low 9.5-13.5 [facility] Comment on above: Performed By: #### C BC #### [facility] [address] [place] [address] Dr. Dwight Waters PLT 265 103/ul Normal 150-450 [facility] Comment on above: Performed By: #### C BC #### [facility] [address] [place] [address] Dr. Dwight Waters RBC 5.69 106/ul Normal 4.70-6.10 [facility] Comment on above: Performed By: #### C BC #### [facility] [address] [place] [address] Dr. Dwight Waters WBC 6.6 103/ul Normal 4.0-11.0 [facility] Comment on above: Performed By: #### C BC #### [facility] [address] [place] [address] Dr. Dwight Waters GGTon 09-15-2022 Gamma glutamyl transferase [Catalytic activity/Vol] 23 U/L Normal 15-85 [facility] Comment on above: Performed By: #### U RTPCR #### [facility] [address] [place] [address] Dr. Dwight Waters MAGNESIUMon 09-15-2022 Magnesium [Mass/Vol] 1.8 mg/dL Normal 1.8-2.4 [facility] Comment on above: Performed By: #### U RTPCR #### [facility] [address] [place] [address] Dr. Dwight Waters RENAL FUNCTION PANELon 09-15 Albumin [Mass/Vol] 4.1 g/dL Normal 3.4-5.0 [facility] Comment on above: Performed By: #### C BC #### [facility] [address] [place] [address] Dr. Dwight Waters Calcium [Mass/Vol] 9.3 mg/dL Normal 8.5-10.1 [facility] Comment on above: Performed By: #### C BC #### [facility] [address] [place] [address] Dr. Dwight Waters Chloride [Moles/Vol] 107 mmol/L Normal 98-107 [facility] Comment on above: Performed By: #### C BC #### [facility] [address] [place] [address] Dr. Dwight Waters CO2 [Moles/Vol] 25.6 mmol/L Normal 21.0-32.0 [facility] Comment on above: Performed By: #### C BC #### [facility] [address] [address] [address] Dwight Waters Creatinine [Mass/Vol] 1.01 mg/dL Normal 0.70-1.30 [facility] Comment on above: Performed By: #### C BC #### [facility] [address] [place] [address] Dr. Dwight Waters EGFR-AF UGANDAN >60 Normal >=60 [facility] Comment on above: Performed By: #### C BC #### [facility] [address] [place] [address] Dr. Dwight Waters EGFR-NON AF UGANDAN >60 Normal >=60 [facility] Comment on above: Performed By: #### C BC #### [facility] [address] [place] [address] Dr. Dwight Waters Glucose [Mass/Vol] 119 mg/dL Critically high 74-106 [facility] Comment on above: Performed By: #### C BC #### [facility] [address] [place] [address] Dr. Dwight Waters Phosphate [Mass/Vol] 2.8 mg/dL Normal 2.6-4.7 [facility] Comment on above: Performed By: #### C BC #### [facility] [address] [place] [address] Dr. Dwight Waters Potassium [Moles/Vol] 4.0 mmol/L Normal 3.5-5.1 [facility] Comment on above: Performed By: #### C BC #### [facility] [address] [place] [address] Dr. Dwight Waters Sodium [Moles/Vol] 141 mmol/L Normal 136-145 [facility] Comment on above: Performed By: #### C BC #### [facility] [address] [place] [address] Dr. Dwight Waters Urea nitrogen [Mass/Vol] 15.0 mg/dL Normal 7.0-18.0 [facility] Comment on above: Performed By: #### C BC #### [facility] [address] [place] [address] Dr. Dwight OLVERAOTon 09-15-2022 AST [Catalytic activity/Vol] 18 U/L Normal 15-37 [facility] Comment on above: Performed By: #### U RTPCR #### [facility] [address] [place] [address] Dr. Dwight OLVERAPTon 09-15-2022 ALT [Catalytic activity/Vol] 32 U/L Normal 16-63 [facility] Comment on above: Performed By: #### C BC #### [facility] [address] [place] [address] Dr. Dwight Waters URINE T PROTEIN CREAT RATIOo n 09-15-2022 Protein (U) [Mass/Vol] 14.1 mg/dL Critically high <=12.0 [facility] Comment on above: Performed By: #### U RTPCR #### [facility] [address] [place] [address] Dr. Dwight Waters UR PROT CREAT RAT 0.14 Normal [facility] Comment on above: Performed By: #### U RTPCR #### [facility] [address] [place] [address] Dr. Dwight Waters URINE CREAT 98.89 mg/dL Normal 20.00-300.00 [facility] Comment on above: Performed By: #### U RTPCR #### [facility] [address] [place] [address] Dr. Dwight Waters US CAROTID ART BILon [...] MÓNICA JIMENEZ Date: 2022-08-28 13:20 Normal [facility] FK506 (TACROLIMUS) WHOLE BLO ODon 08-17-2022 Tacrolimus (FK506), Blood 9.9 ng/mL Normal 2.0-20.0 [facility] Comment on above: Result Comment: Trou gh (immediately following transplant) 15.0 . Trough (steady state, 2 weeks or more after transplant): 3.0 - 8.0 . Performed by LC-MS/MS technology. Performed By: #### F [id number] #### [facility] [address] [place] [address] Dr. Dwight Waters BK VIRUS PCR QUANTon 022 BKV DNA QUANT PCR PLASMA Negative Normal Negative [facility] Comment on above: Result Comment: No B K DNA detected. . The linear range of the assay is 22 - 100,000,000 IU/mL. Performed By: #### U RTPCR #### [facility] [address] [place] [address] Dr. Dwight Waters Log10 BKV DNA Plasma Normal [facility] Comment on above: Performed By: #### U RTPCR #### [facility] [address] [place] [address] Dr. Dwight Waters ALBUMINon 08-14-2022 Albumin [Mass/Vol] 4.2 g/dL Normal 3.4-5.0 [facility] Comment on above: Performed By: #### F [id number] #### [facility] [address] [place] [address] Dr. Dwight Waters ALKALINE PHOSPHAon ALP [Catalytic activity/Vol] 92 U/L Normal 46-116 [facility] Comment on above: Performed By: #### C BC #### [facility] [address] [place] [address] Dr. Dwight Waters BILIRUBIN CONJUGATED (DIRECT )on 08-14-2022 BILI, CONJUGATED 0.3 mg/dL Critically high 0.0-0.2 [facility] Comment on above: Performed By: #### F [id number] #### [facility] [address] [place] [address] Dr. Dwight Waters BILIRUBIN TOTALon 08-14-2022 Bilirubin [Mass/Vol] 1.5 mg/dL Critically high 0.2-1.0 [facility] Comment on above: Performed By: #### F [id number] #### [facility] [address] [place] [address] Dr. Dwight Waters BUNon 08-14-2022 Urea nitrogen [Mass/Vol] 11.0 mg/dL Normal 7.0-18.0 [facility] Comment on above: Performed By: #### C BC #### [facility] [address] [place] [address] Dr. Dwight Waters CALCIUMon 08-14-2022 Calcium [Mass/Vol] 9.4 mg/dL Normal 8.5-10.1 [facility] Comment on above: Performed By: #### F [id number] #### [facility] [address] [place] [address] Dr. Dwight Waters CBC AUTO DIFFon 08-14-2022 BASO # 0.0 103/ul Normal 0.0-0.1 [facility] Comment on above: Performed By: #### C MP #### [facility] [address] [place] [address] Dr. Dwight Waters Basophils/100 WBC (Bld) 0.5 % Normal 0.2-2.0 [facility] Comment on above: Performed By: #### C MP #### [facility] [address] [place] [address] Dr. Dwight Waters EO # 0.2 103/ul Normal 0.0-0.7 [facility] Comment on above: Performed By: #### C MP #### [facility] [address] [place] [address] Dr. Dwight Waters Eosinophils/100 WBC (Bld) 2.6 % Normal 0.9-7.0 [facility] Comment on above: Performed By: #### C MP #### [facility] [address] [place] [address] Dr. Dwight Waters Erythrocyte distribution width (RBC) [Ratio] 13.1 % Normal 11.0-15.0 [facility] Comment on above: Performed By: #### C MP #### [facility] [address] [place] [address] Dr. Dwight Waters Hematocrit (Bld) [Volume fraction] 47.0 % Normal 42.0-54.0 [facility] Comment on above: Performed By: #### C MP #### [facility] [address] [place] [address] Dr. Dwight Waters Hemoglobin (Bld) [Mass/Vol] 15.3 g/dL Normal 14.0-18.0 [facility] Comment on above: Performed By: #### C MP #### [facility] [address] [place] [address] Dr. Dwight Waters IG # 0.01 10e3/ul Normal 0.00-0.03 [facility] Comment on above: Performed By: #### C MP #### [facility] [address] [place] [address] Dr. Dwight Waters IG % 0.1 % Normal 0.0-0.5 [facility] Comment on above: Performed By: #### C MP #### [facility] [address] [place] [address] Dr. Dwight Waters LYMPH # 2.3 103/ul Normal 1.2-3.8 [facility] Comment on above: Performed By: #### C MP #### [facility] [address] [place] [address] Dr. Dwight Waters Lymphocytes/100 WBC (Bld) 29.8 % Normal 20.5-60.0 [facility] Comment on above: Performed By: #### C MP #### [facility] [address] [place] [address] Dr. Dwight Waters MANUAL DIFF REQ NO Normal [facility] Comment on above: Performed By: #### C MP #### [facility] [address] [place] [address] Dr. Dwight Waters MCH (RBC) [Entitic mass] 28.2 pg Normal 25.9-34.0 [facility] Comment on above: Performed By: #### C MP #### [facility] [address] [place] [address] Dr. Dwight Waters MCHC (RBC) [Mass/Vol] 32.6 g/dL Normal 29.9-35.2 [facility] Comment on above: Performed By: #### C MP #### [facility] [address] [place] [address] Dr. Dwight Waters MCV (RBC) [Entitic vol] 86.7 fL Normal 80.0-94.0 [facility] Comment on above: Performed By: #### C MP #### [facility] [address] [place] [address] Dr. Dwight Waters MONO # 0.7 103/ul Normal 0.3-0.8 [facility] Comment on above: Performed By: #### C MP #### [facility] [address] [place] [address] Dr. Dwight Waters Monocytes/100 WBC (Bld) 8.5 % Normal 1.7-12.0 [facility] Comment on above: Performed By: #### C MP #### [facility] [address] [place] [address] Dr. Dwight Waters NEUT # 4.5 103/ul Normal 1.4-6.5 [facility] Comment on above: Performed By: #### C MP #### [facility] [address] [place] [address] Dr. Dwight Waters Neutrophils/100 WBC (Bld) 58.5 % Normal 43.0-75.0 [facility] Comment on above: Performed By: #### C MP #### [facility] [address] [place] [address] Dr. Dwight Waters Platelet mean volume (Bld) [Entitic vol] 9.7 fL Normal 9.5-13.5 [facility] Comment on above: Performed By: #### C MP #### [facility] [address] [place] [address] Dr. Dwight Waters PLT 266 103/ul Normal 150-450 [facility] Comment on above: Performed By: #### C MP #### [facility] [address] [place] [address] Dr. Dwight Waters RBC 5.42 106/ul Normal 4.70-6.10 [facility] Comment on above: Performed By: #### C MP #### [facility] [address] [place] [address] Dr. Dwight Waters WBC 7.6 103/ul Normal 4.0-11.0 [facility] Comment on above: Performed By: #### C MP #### [facility] [address] [place] [address] Dr. Dwight Waters CHLORIDEon 08-14-2022 Chloride [Moles/Vol] 104 mmol/L Normal 98-107 [facility] Comment on above: Performed By: #### C BC #### [facility] [address] [place] [address] Dr. Dwight Waters CO2on 08-14-2022 CO2 [Moles/Vol] 27.9 mmol/L Normal 21.0-32.0 [facility] Comment on above: Performed By: #### C BC #### [facility] [address] [place] [address] Dr. Dwight Waters CREATININEon 08-14-2022 Creatinine [Mass/Vol] 1.08 mg/dL Normal 0.70-1.30 [facility] Comment on above: Performed By: #### C BC #### [facility] [address] [place] [address] Dr. Dwight Waters EGFR-AF UGANDAN >60 Normal >=60 [facility] Comment on above: Performed By: #### C BC #### [facility] [address] [place] [address] Dr. Dwight Waters EGFR-NON AF UGANDAN >60 Normal >=60 [facility] Comment on above: Performed By: #### C BC #### [facility] [address] [place] [address] Dr. Dwight Waters GGTon 08-14-2022 Gamma glutamyl transferase [Catalytic activity/Vol] 24 U/L Normal 15-85 [facility] Comment on above: Performed By: #### F [id number] #### [facility] [address] [place] [address] Dr. Dwight Waters GLUCOSE BLOODon 08-14-2022 Glucose [Mass/Vol] 111 mg/dL Critically high 74-106 [facility] Comment on above: Performed By: #### C BC #### [facility] [address] [place] [address] Dr. Dwight Waters MAGNESIUMon 08-14-2022 Magnesium [Mass/Vol] 1.4 mg/dL Critically low 1.8-2.4 [facility] Comment on above: Performed By: #### C BC #### [facility] [address] [place] [address] Dr. Dwight Waters NAon 08-14-2022 Sodium [Moles/Vol] 140 mmol/L Normal 136-145 [facility] Comment on above: Performed By: #### F [id number] #### [facility] [address] [place] [address] Dr. Dwight Waters PHOSPHORUSon 08-14-2022 Phosphate [Mass/Vol] 3.1 mg/dL Normal 2.6-4.7 [facility] Comment on above: Performed By: #### C BC #### [facility] [address] [place] [address] Dr. Dwight Waters POTASSIUMon 08-14-2022 Potassium [Moles/Vol] 3.5 mmol/L Normal 3.5-5.1 [facility] Comment on above: Performed By: #### C BC #### [facility] [address] [place] [address] Dr. Dwight Waters SGOTon 08-14-2022 AST [Catalytic activity/Vol] 17 U/L Normal 15-37 [facility] Comment on above: Performed By: #### F [id number] #### [facility] [address] [place] [address] Dr. Dwight Waters SGPTon 08-14-2022 ALT [Catalytic activity/Vol] 22 U/L Normal 16-63 [facility] Comment on above: Performed By: #### F [id number] #### [facility] [address] [place] [address] Dr. Dwight Waters URINE T PROTEIN CREAT RATIOo n 08-14-2022 Protein (U) [Mass/Vol] 10.7 mg/dL Normal <=12.0 [facility] Comment on above: Performed By: #### F [id number] #### [facility] [address] [place] [address] Dr. Dwight Waters UR PROT CREAT RAT 0.10 Normal [facility] Comment on above: Performed By: #### F [id number] #### [facility] [address] [place] [address] Dr. Dwight Waters URINE CREAT 104.28 mg/dL Normal 20.00-300.00 [facility] Comment on above: Performed By: #### F [id number] #### [facility] [address] [place] [address] Dr. Dwight Waters NEPHROSTOMY TUBE REMOVALon 0 [...] physician present for entire procedure: yes [facility] Radiology Study observation (narrative) [facility] FK506 (TACROLIMUS) WHOLE BLO ODon 07-06-2022 Tacrolimus (FK506), Blood 9.5 ng/mL Normal 2.0-20.0 [facility] Comment on above: Result Comment: Trou gh (immediately following transplant) 15.0 . Trough (steady state, 2 weeks or more after transplant): 3.0 - 8.0 . Performed by LC-MS/MS technology. Performed By: #### C MP #### [facility] [address] [place] [address] Dr. Dwight Waters ALBUMINon 07-03-2022 Albumin [Mass/Vol] 3.7 g/dL Normal 3.4-5.0 [facility] Comment on above: Performed By: #### U RTPCR #### [facility] [address] [place] [address] Dr. Dwight Waters ALKALINE PHOSPHAon ALP [Catalytic activity/Vol] 76 U/L Normal 46-116 [facility] Comment on above: Performed By: #### U RTPCR #### [facility] [address] [place] [address] Dr. Dwight Waters BILIRUBIN CONJUGATED (DIRECT )on 07-03-2022 BILI, CONJUGATED 0.3 mg/dL Critically high 0.0-0.2 [facility] Comment on above: Performed By: #### C BC #### [facility] [address] [place] [address] Dr. Dwight Waters BILIRUBIN TOTALon 07-03-2022 Bilirubin [Mass/Vol] 1.4 mg/dL Critically high 0.2-1.0 [facility] Comment on above: Performed By: #### C BC #### [facility] [address] [place] [address] Dr. Dwight Waters BUNon 07-03-2022 Urea nitrogen [Mass/Vol] 15.0 mg/dL Normal 7.0-18.0 [facility] Comment on above: Performed By: #### C BC #### [facility] [address] [place] [address] Dr. Dwight Waters CALCIUMon 07-03-2022 Calcium [Mass/Vol] 9.4 mg/dL Normal 8.5-10.1 [facility] Comment on above: Performed By: #### U RTPCR #### [facility] [address] [place] [address] Dr. Dwight Waters CBC AUTO DIFFon 07-03-2022 BASO # 0.0 103/ul Normal 0.0-0.1 [facility] Comment on above: Performed By: #### U RTPCR #### [facility] [address] [place] [address] Dr. Dwight Waters Basophils/100 WBC (Bld) 0.6 % Normal 0.2-2.0 [facility] Comment on above: Performed By: #### U RTPCR #### [facility] [address] [place] [address] Dr. Dwight Waters EO # 0.2 103/ul Normal 0.0-0.7 [facility] Comment on above: Performed By: #### U RTPCR #### [facility] [address] [place] [address] Dr. Dwight Waters Eosinophils/100 WBC (Bld) 3.5 % Normal 0.9-7.0 [facility] Comment on above: Performed By: #### U RTPCR #### [facility] [address] [place] [address] Dr. Dwight Waters Erythrocyte distribution width (RBC) [Ratio] 12.9 % Normal 11.0-15.0 [facility] Comment on above: Performed By: #### U RTPCR #### [facility] [address] [place] [address] Dr. Dwight Waters Hematocrit (Bld) [Volume fraction] 44.2 % Normal 42.0-54.0 [facility] Comment on above: Performed By: #### U RTPCR #### [facility] [address] [address] [address] Dwight Waters Hemoglobin (Bld) [Mass/Vol] 14.6 g/dL Normal 14.0-18.0 [facility] Comment on above: Performed By: #### U RTPCR #### [facility] [address] [address] [address] Dwight Waters IG # 0.02 10e3/ul Normal 0.00-0.03 [facility] Comment on above: Performed By: #### U RTPCR #### [facility] [address] [place] [address] Dr. Dwight Waters IG % 0.3 % Normal 0.0-0.5 [facility] Comment on above: Performed By: #### U RTPCR #### [facility] [address] [place] [address] Dr. Dwight Waters LYMPH # 2.0 103/ul Normal 1.2-3.8 [facility] Comment on above: Performed By: #### U RTPCR #### [facility] [address] [place] [address] Dr. Dwight Waters Lymphocytes/100 WBC (Bld) 28.4 % Normal 20.5-60.0 [facility] Comment on above: Performed By: #### U RTPCR #### [facility] [address] [place] [address] Dr. Dwight Waters MANUAL DIFF REQ NO Normal [facility] Comment on above: Performed By: #### U RTPCR #### [facility] [address] [place] [address] Dr. Dwight Waters MCH (RBC) [Entitic mass] 28.6 pg Normal 25.9-34.0 [facility] Comment on above: Performed By: #### U RTPCR #### [facility] [address] [place] [address] Dr. Dwight Waters MCHC (RBC) [Mass/Vol] 33.0 g/dL Normal 29.9-35.2 [facility] Comment on above: Performed By: #### U RTPCR #### [facility] [address] [place] [address] Dr. Dwight Waters MCV (RBC) [Entitic vol] 86.7 fL Normal 80.0-94.0 [facility] Comment on above: Performed By: #### U RTPCR #### [facility] [address] [place] [address] Dr. Dwight Waters MONO # 0.6 103/ul Normal 0.3-0.8 [facility] Comment on above: Performed By: #### U RTPCR #### [facility] [address] [place] [address] Dr. Dwight Waters Monocytes/100 WBC (Bld) 9.1 % Normal 1.7-12.0 [facility] Comment on above: Performed By: #### U RTPCR #### [facility] [address] [place] [address] Dr. Dwight Waters NEUT # 4.0 103/ul Normal 1.4-6.5 [facility] Comment on above: Performed By: #### U RTPCR #### [facility] [address] [place] [address] Dr. Dwight Waters Neutrophils/100 WBC (Bld) 58.1 % Normal 43.0-75.0 [facility] Comment on above: Performed By: #### U RTPCR #### [facility] [address] [place] [address] Dr. Dwight Waters Platelet mean volume (Bld) [Entitic vol] 9.5 fL Normal 9.5-13.5 [facility] Comment on above: Performed By: #### U RTPCR #### [facility] [address] [place] [address] Dr. Dwight Waters PLT 292 103/ul Normal 150-450 [facility] Comment on above: Performed By: #### U RTPCR #### [facility] [address] [place] [address] Dr. Dwight Waters RBC 5.10 106/ul Normal 4.70-6.10 [facility] Comment on above: Performed By: #### U RTPCR #### [facility] [address] [place] [address] Dr. Dwight Waters WBC 6.9 103/ul Normal 4.0-11.0 [facility] Comment on above: Performed By: #### U RTPCR #### [facility] [address] [place] [address] Dr. Dwight Waters CHLORIDEon 07-03-2022 Chloride [Moles/Vol] 108 mmol/L Critically high 98-107 [facility] Comment on above: Performed By: #### C BC #### [facility] [address] [place] [address] Dr. Dwight Waters CO2on 07-03-2022 CO2 [Moles/Vol] 25.2 mmol/L Normal 21.0-32.0 [facility] Comment on above: Performed By: #### C BC #### [facility] [address] [place] [address] Dr. Dwight Waters CREATININEon 07-03-2022 Creatinine [Mass/Vol] 1.03 mg/dL Normal 0.70-1.30 [facility] Comment on above: Performed By: #### U RTPCR #### [facility] [address] [place] [address] Dr. Dwight Waters EGFR-AF UGANDAN >60 Normal >=60 [facility] Comment on above: Performed By: #### U RTPCR #### [facility] [address] [place] [address] Dr. Dwight Waters EGFR-NON AF UGANDAN >60 Normal >=60 [facility] Comment on above: Performed By: #### U RTPCR #### [facility] [address] [place] [address] Dr. Dwight Waters GGTon 07-03-2022 Gamma glutamyl transferase [Catalytic activity/Vol] 31 U/L Normal 15-85 [facility] Comment on above: Performed By: #### U RTPCR #### [facility] [address] [place] [address] Dr. Dwight Waters GLUCOSE BLOODon 07-03-2022 Glucose [Mass/Vol] 119 mg/dL Critically high 74-106 [facility] Comment on above: Performed By: #### U RTPCR #### [facility] [address] [place] [address] Dr. Dwight Waters MAGNESIUMon 07-03-2022 Magnesium [Mass/Vol] 1.4 mg/dL Critically low 1.8-2.4 [facility] Comment on above: Performed By: #### C BC #### [facility] [address] [place] [address] Dr. Dwight Waters NAon 07-03-2022 Sodium [Moles/Vol] 142 mmol/L Normal 136-145 [facility] Comment on above: Performed By: #### C MP #### [facility] [address] [place] [address] Dr. Dwight Waters PHOSPHORUSon 07-03-2022 Phosphate [Mass/Vol] 3.4 mg/dL Normal 2.6-4.7 [facility] Comment on above: Performed By: #### C BC #### [facility] [address] [place] [address] Dr. Dwight Waters POTASSIUMon 07-03-2022 Potassium [Moles/Vol] 4.1 mmol/L Normal 3.5-5.1 [facility] Comment on above: Performed By: #### C BC #### [facility] [address] [place] [address] Dr. Dwight Waters SGOTon 07-03-2022 AST [Catalytic activity/Vol] 14 U/L Critically low 15-37 [facility] Comment on above: Performed By: #### C BC #### [facility] [address] [place] [address] Dr. Dwight Waters SGPTon 07-03-2022 ALT [Catalytic activity/Vol] 25 U/L Normal 16-63 [facility] Comment on above: Performed By: #### C BC #### [facility] [address] [place] [address] Dr. Dwight Waters US KIDNEYSon 07-03-2022 US KIDNEYS Ultrasound kidneys, bilateral HISTORY: Transplant of kidney , pain in the right lower quadrant COMPARISON: None. TECHNIQUE: Transabdominal ultrasound imaging of both kidneys was performed. FINDINGS: The eagle kidneys are diffusely echogenic and atrophic with cortical thinning. The right kidney measures 8.3 x 3.5 x 4.07 m and the left measures 9.9 x 3.8 x 3.6 cm. No hydronephrosis of the eagle kidneys. There is a renal transplant in [...] stone involving the renal transplant. 2. Atrophic eagle kidneys. 3. Normal bladder. Electronically authenticated by: ARCELIA PIZARRO Date: 2022-07-03 17:22 Normal [facility] CT Abdomen and Pelvis WO con traston 06-27-2022 IMPRESSION: 1. Both eagle kidneys are atrophic with improvement in right-sided [...] Adrenals: Adrenal glands are unremarkable. Kidneys: Both eagle kidneys are atrophic. Interval improvement in right eagle kidney hydronephrosis since May 15, 2022. Status [...] Adrenals: Adrenal glands are unremarkable. Kidneys: Both eagle kidneys are atrophic. Interval improvement in right eagle kidney hydronephrosis since May 15, 2022. Status [...] aggressive osseous lesions. IMPRESSION IMPRESSION: 1. Both eagle kidneys are atrophic with improvement in right-sided hydronephrosis since May 15, 2022. 2. 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 No hydronephrosis. No discrete perinephric collection. 3. Partially imaged postsurgical changes related to prior liver transplant. 4. The bladder is decompressed, limiting evaluation. [facility]ative[facility] WO con trastOrdered By: Gera Lu on 06-27-2022 [facility] Work Phone: CBC AUTO DIFFon 06-18-2022 BASO # 0.0 103/ul Normal 0.0-0.1 [facility] Comment on above: Performed By: #### U RTPCR #### [facility] [address] [place] [address] Dr. Dwight Waters Basophils/100 WBC (Bld) 0.5 % Normal 0.2-2.0 [facility] Comment on above: Performed By: #### U RTPCR #### [facility] [address] [address] [address] Dwight Waters EO # 0.2 103/ul Normal 0.0-0.7 [facility] Comment on above: Performed By: #### U RTPCR #### [facility] [address] [place] [address] Dr. Dwight Waters Eosinophils/100 WBC (Bld) 2.3 % Normal 0.9-7.0 [facility] Comment on above: Performed By: #### U RTPCR #### [facility] [address] [place] [address] Dr. Dwight Waters Erythrocyte distribution width (RBC) [Ratio] 12.9 % Normal 11.0-15.0 [facility] Comment on above: Performed By: #### U RTPCR #### [facility] [address] [place] [address] Dr. Dwight Waters Hematocrit (Bld) [Volume fraction] 41.2 % Critically low 42.0-54.0 [facility] Comment on above: Performed By: #### U RTPCR #### [facility] [address] [place] [address] Dr. Dwight Waters Hemoglobin (Bld) [Mass/Vol] 13.3 g/dL Critically low 14.0-18.0 [facility] Comment on above: Performed By: #### U RTPCR #### [facility] [address] [place] [address] Dr. Dwight Waters IG # 0.04 10e3/ul Critically high 0.00-0.03 [facility] Comment on above: Performed By: #### U RTPCR #### [facility] [address] [place] [address] Dr. Dwight Waters IG % 0.5 % Normal 0.0-0.5 [facility] Comment on above: Performed By: #### U RTPCR #### [facility] [address] [place] [address] Dr. Dwight Waters LYMPH # 2.0 103/ul Normal 1.2-3.8 [facility] Comment on above: Performed By: #### U RTPCR #### [facility] [address] [place] [address] Dr. Dwight Waters Lymphocytes/100 WBC (Bld) 22.9 % Normal 20.5-60.0 [facility] Comment on above: Performed By: #### U RTPCR #### [facility] [address] [place] [address] Dr. Dwight Waters MANUAL DIFF REQ NO Normal [facility] Comment on above: Performed By: #### U RTPCR #### [facility] [address] [place] [address] Dr. Dwight Waters MCH (RBC) [Entitic mass] 28.7 pg Normal 25.9-34.0 [facility] Comment on above: Performed By: #### U RTPCR #### [facility] [address] [place] [address] Dr. Dwight Waters MCHC (RBC) [Mass/Vol] 32.3 g/dL Normal 29.9-35.2 [facility] Comment on above: Performed By: #### U RTPCR #### [facility] [address] [place] [address] Dr. Dwight Waters MCV (RBC) [Entitic vol] 88.8 fL Normal 80.0-94.0 [facility] Comment on above: Performed By: #### U RTPCR #### [facility] [address] [place] [address] Dr. Dwight Waters MONO # 0.8 103/ul Normal 0.3-0.8 [facility] Comment on above: Performed By: #### U RTPCR #### [facility] [address] [place] [address] Dr. Dwight Waters Monocytes/100 WBC (Bld) 9.7 % Normal 1.7-12.0 [facility] Comment on above: Performed By: #### U RTPCR #### [facility] [address] [place] [address] Dr. Dwight Waters NEUT # 5.6 103/ul Normal 1.4-6.5 [facility] Comment on above: Performed By: #### U RTPCR #### [facility] [address] [place] [address] Dr. Dwight Waters Neutrophils/100 WBC (Bld) 64.1 % Normal 43.0-75.0 [facility] Comment on above: Performed By: #### U RTPCR #### [facility] [address] [place] [address] Dr. Dwight Waters Platelet mean volume (Bld) [Entitic vol] 10.0 fL Normal 9.5-13.5 [facility] Comment on above: Performed By: #### U RTPCR #### [facility] [address] [address] [address] Dwight Waters PLT 270 103/ul Normal 150-450 [facility] Comment on above: Performed By: #### U RTPCR #### [facility] [address] [address] [address] Dwight Waters RBC 4.64 106/ul Critically low 4.70-6.10 [facility] Comment on above: Performed By: #### U RTPCR #### [facility] [address] [address] [address] Dwight Waters WBC 8.7 103/ul Normal 4.0-11.0 [facility] Comment on above: Performed By: #### U RTPCR #### [facility] [address] [place] [address] Dr. Dwight Waters CULTURE URINEon 06-18-2022 CULTURE URINE Culture Observations : NO GROWTH. Normal [facility] Comment on above: Performed By: #### U RTPCR #### [facility] [address] [place] [address] Dr. Dwight Waters [facility] SARS-CoV-2 (COVID-19) RNA ESTELITA+probe Ql (Unsp spec) Not detected Normal NOT DETECTED [facility] Comment on above: Result Comment: When [...] for this test is supported by the [employer] Manager of Health and Human Service's declaration that [...] used). Performed By: #### C BC #### [facility] [address] [place] [address] Dr. Dwight Waters ER URINE PROFILEon 2 Bilirubin Ql (U) Negative Normal NEGATIVE [facility] Comment on above: Performed By: #### U RTPCR #### [facility] [address] [place] [address] Dr. Dwight Waters Clarity (U) CLEAR Normal CLEAR [facility] Comment on above: Performed By: #### U RTPCR #### [facility] [address] [place] [address] Dr. Diwght Waters Color (U) YELLOW Normal YELLOW [facility] Comment on above: Performed By: #### U RTPCR #### [facility] [address] [place] [address] Dr. Dwight Waters ERUAHD A micrscopic examina tion will be performed if indicated. Normal [facility] Comment on above: Performed By: #### U RTPCR #### [facility] [address] [place] [address] Dr. Dwight Waters Glucose Ql (U) Negative Normal NEGATIVE [facility] Comment on above: Performed By: #### U RTPCR #### [facility] [address] [place] [address] Dr. Dwight Waters Hemoglobin Ql (U) LARGE Abnormal NEGATIVE [facility] Comment on above: Performed By: #### U RTPCR #### [facility] [address] [place] [address] Dr. Dwight Waters Ketones Ql (U) Negative Normal NEGATIVE [facility] Comment on above: Performed By: #### U RTPCR #### [facility] [address] [place] [address] Dr. Dwight Waters LEUKOCYTES TRACE Abnormal NEGATIVE [facility] Comment on above: Performed By: #### U RTPCR #### [facility] [address] [place] [address] Dr. Dwight Waters Nitrite Ql (U) Negative Normal NEGATIVE [facility] Comment on above: Performed By: #### U RTPCR #### [facility] [address] [address] [address] Dwight Waters pH (U) 6.0 [pH] Normal 5-9 [facility] Comment on above: Performed By: #### U RTPCR #### [facility] [address] [place] [address] Dr. Dwight Waters Protein (U) [Mass/Vol] 30 mg/dL Abnormal NEGATIVE/ TRACE [facility] Comment on above: Performed By: #### U RTPCR #### [facility] [address] [place] [address] Dr. Dwight Waters SPEC GRAVITY >=1.030 Abnormal 1.005-<=1.02 5 [facility] Comment on above: Performed By: #### U RTPCR #### [facility] [address] [place] [address] Dr. Dwight Waters UR MICRO IND INDICATED Normal [facility] Comment on above: Performed By: #### U RTPCR #### [facility] [address] [place] [address] Dr. Dwight Waters Urobilinogen Qn (U) 0.2 {Alyssa'U}/dL Normal 0.2 - 1. 0 [facility] Comment on above: Performed By: #### U RTPCR #### [facility] [address] [place] [address] Dr. Dwight Waters PROF 14(COMP METB)on 022 Albumin [Mass/Vol] 3.7 g/dL Normal 3.4-5.0 [facility] Comment on above: Performed By: #### C MP #### [facility] [address] [place] [address] Dr. Dwight Waters Albumin/Globulin [Mass ratio] 0.9 {ratio} Normal [facility] Comment on above: Performed By: #### C MP #### [facility] [address] [place] [address] Dr. Dwight Waters ALP [Catalytic activity/Vol] 80 U/L Normal 46-116 [facility] Comment on above: Performed By: #### C MP #### [facility] [address] [place] [address] Dr. Dwight Waters ALT [Catalytic activity/Vol] 24 U/L Normal 16-63 [facility] Comment on above: Performed By: #### C MP #### [facility] [address] [place] [address] Dr. Dwight Waters Anion gap [Moles/Vol] 12.9 mmol/L Normal [facility] Comment on above: Performed By: #### C MP #### [facility] [address] [place] [address] Dr. Dwight Waters AST [Catalytic activity/Vol] 17 U/L Normal 15-37 [facility] Comment on above: Performed By: #### C MP #### [facility] [address] [place] [address] Dr. Dwight Waters Bilirubin [Mass/Vol] 0.8 mg/dL Normal 0.2-1.0 [facility] Comment on above: Performed By: #### C MP #### [facility] [address] [place] [address] Dr. Dwight Waters Calcium [Mass/Vol] 9.4 mg/dL Normal 8.5-10.1 [facility] Comment on above: Performed By: #### C MP #### [facility] [address] [place] [address] Dr. Dwight Waters Chloride [Moles/Vol] 106 mmol/L Normal 98-107 [facility] Comment on above: Performed By: #### C MP #### [facility] [address] [place] [address] Dr. Dwight Waters CO2 [Moles/Vol] 25.3 mmol/L Normal 21.0-32.0 [facility] Comment on above: Performed By: #### C MP #### [facility] [address] [place] [address] Dr. Dwight Waters Creatinine [Mass/Vol] 1.29 mg/dL Normal 0.70-1.30 [facility] Comment on above: Performed By: #### C MP #### [facility] [address] [place] [address] Dr. Dwight Waters EGFR-AF UGANDAN >60 Normal >=60 [facility] Comment on above: Performed By: #### C MP #### [facility] [address] [address] [address] Dwight Waters EGFR-NON AF UGANDAN 59 mL/min/1.73m2 Critically low >=60 [facility] Comment on above: Performed By: #### C MP #### [facility] [address] [address] [address] Dwight Waters Globulin (S) [Mass/Vol] 4.2 g/dL Normal [facility] Comment on above: Performed By: #### C MP #### [facility] [address] [place] [address] Dr. Dwight Waters Glucose [Mass/Vol] 106 mg/dL Normal 74-106 [facility] Comment on above: Performed By: #### C MP #### [facility] [address] [address] [address] Dwight Waters Potassium [Moles/Vol] 4.2 mmol/L Normal 3.5-5.1 [facility] Comment on above: Performed By: #### C MP #### [facility] [address] [place] [address] Dr. Dwight Waters Protein [Mass/Vol] 7.9 g/dL Normal 6.4-8.2 [facility] Comment on above: Performed By: #### C MP #### [facility] [address] [address] [address] Dwight Waters Sodium [Moles/Vol] 140 mmol/L Normal 136-145 [facility] Comment on above: Performed By: #### C MP #### [facility] [address] [address] [address] Dwight Waters Urea nitrogen [Mass/Vol] 22.0 mg/dL Critically high 7.0-18.0 [facility] Comment on above: Performed By: #### C MP #### [facility] [address] [address] [address] Dwight Waters Urea nitrogen/Creatinine [Mass ratio] 17.1 mg/mg Normal [facility] Comment on above: Performed By: #### C MP #### [facility] [address] [place] [address] Dr. Dwight Waters URINE MICROSCOPIC ONLYon BACTERIA TRACE Abnormal NONE SEEN [facility] Comment on above: Performed By: #### U RTPCR #### [facility] [address] [place] [address] Dr. Dwight Waters Bacteria identified Cx Nom (U) INDICATED Normal [facility] Comment on above: Performed By: #### U RTPCR #### [facility] [address] [place] [address] Dr. Dwight Waters CAST NONE SEEN Normal NONE SEEN [facility] Comment on above: Performed By: #### U RTPCR #### [facility] [address] [place] [address] Dr. Dwight Waters Crystals LM Nom (Urine sed) NONE SEEN Normal NONE SEEN [facility] Comment on above: Performed By: #### U RTPCR #### [facility] [address] [place] [address] Dr. Dwight Waters Epithelial cells LM Ql (Urine sed) NONE SEEN Normal NONE SEEN /RARE [facility] Comment on above: Performed By: #### U RTPCR #### [facility] [address] [place] [address] Dr. Dwight Waters MUCOUS NONE SEEN Normal NONE SEEN [facility] Comment on above: Performed By: #### U RTPCR #### [facility] [address] [place] [address] Dr. Dwight Waters RBC 5-10 Abnormal 0-2 [facility] Comment on above: Performed By: #### U RTPCR #### [facility] [address] [place] [address] Dr. Dwight Waters WBC 10-20 Abnormal NONE SEEN [facility] Comment on above: Performed By: #### U RTPCR #### [facility] [address] [place] [address] Dr. Dwight Waters ALLOSCREEN RECIPIENT (POST T X PRA)on 06-13-2022 AB SPECIFICITY CLASS COMMENT Antibody Specificity testing performed by [employer]. cPRA calculation based on identification of HLA antibody specificities at MFI >2000 and/or presence of CREG antibodies. [facility] Comment on above: Some of the reagents used for testing in the Clinical Histocompatibility Laboratory have yet to be approved by the FDA. Our certification by CLIA to perform high complexity tests allows us to use these reagents in the context of a stringent QC program, and obviates the need for FDA approval.Testing performed by the [facility] Clinical Histocompatibility Laboratory. [facility] number: [id number]. CLIA number: [id number], Director: Carlito Merchant, PhD, D([facility]). ANTIBODY SPECIFICITY INTERPRETATION Detected [facility] CLASS I SPECIFICITIES Not detected [facility] CLASS II SPECIFICITIES Not detected [facility] HLA Ab (S) 0 % 0 [facility] EXTRA MICROon 06-13-2022 [facility] URINE CULTUREOrdered By: Jah Upton on 06-13-2022 Bacteria identified Cx Nom (Unsp spec) Growth [facility] Bacteria identified Cx Nom (Unsp spec) 10,000-50,000 CFU/mL Mixed skin shimon [facility] Comment on above: Multiple bacterial m orphotypes present. Suggest appropriate recollection if clinically indicated. [facility] CBC,PLATELETSon 06-12-2022 Erythrocyte distribution width (RBC) [Ratio] 13.0 % 10.9 - 14.3 % [facility] Hematocrit (Bld) [Volume fraction] 43.2 % 39.6 - 48.8 % [facility] Hemoglobin (Bld) [Mass/Vol] 13.9 g/dL 13.4 - 16.8 g/dL [facility] Interpretation and review of laboratory results Normal [facility] MCH (RBC) [Entitic mass] 28.7 pg 26.1 - 33.3 pg [facility] MCHC (RBC) [Mass/Vol] 32.2 g/dL 31.9 - 36.5 g/dL [facility] MCV (RBC) [Entitic vol] 89.1 fL 79.0 - 94.5 fL [facility] Platelet mean volume (Bld) [Entitic vol] 10.5 fL 8.7 - 12.3 fL [facility] Platelets (Bld) [#/Vol] 269 10*3/uL 146 - 337 K/uL [facility] RBC (Bld) [#/Vol] 4.85 10*6/uL [facility] WBC (Bld) [#/Vol] 7.68 10*3/uL 3.73 - 10. 10 K/uL [facility] CHEM 7 (LYTES,BUN,CREA,GLUC) on 06-12-2022 Anion gap [Moles/Vol] 14 mmol/L 7 - 17 mmol/L [facility] Chloride [Moles/Vol] 106 mmol/L 98 - 10 8 mmol/L [facility] CO2 [Moles/Vol] 25 mmol/L 21 - 31 mmol/L [facility] Creatinine [Mass/Vol] 1.26 mg/dL 0.70 - 1.30 mg/dL [facility] GFR/1.73 sq M.predicted CKD-EPI (S/P/Bld) [Vol rate/Area] 69 >=60 mL/min/1.73m 2 [facility] Comment on above: Reported eGFR is bas ed on the CKD-EPI 2020 equation using creatinine, age, and sex. Glucose [Mass/Vol] 83 mg/dL 70 - 99 mg/dL [facility] Osmolality Calc [Osmolality] 295 [facility] Potassium [Moles/Vol] 3.8 mmol/L 3.5 - 5.0 mmol/L [facility] Sodium [Moles/Vol] 141 mmol/L 135 - 145 mmol/L [facility] Urea nitrogen [Mass/Vol] 18 mg/dL 7 - 25 mg/dL [facility] Urea nitrogen/Creatinine [Mass ratio] 14 mg/mg [facility] GGTon 06-12-2022 Gamma glutamyl transferase [Catalytic activity/Vol] 20 U/L 8 - 64 U/L [facility] HEMOGLOBIN [id number] By: Link [employer] on 06-12-2022 Average glucose Estimated from glycated hemoglobin (Bld) [Mass/Vol] 126 mg/dL [facility] HbA1c (Bld) [Mass fraction] 6.0 % High 4.7 - 5.6 % [facility] Interpretation and review of laboratory results Abnormal [facility] HEPATIC FUNCTION PANELon Albumin [Mass/Vol] 4.3 g/dL 3.5 - 5.0 g/dL [facility] ALP [Catalytic activity/Vol] 78 U/L 32 - 126 U/L [facility] ALT [Catalytic activity/Vol] 12 U/L 10 - 52 U/L [facility] AST [Catalytic activity/Vol] 16 U/L 10 - 39 U/L [facility] Bilirubin [Mass/Vol] 1.0 mg/dL <1.5 [facility] Bilirubin.direct [Mass/Vol] 0.2 mg/dL <0.3 [facility] Protein [Mass/Vol] 7.5 g/dL 6.4 - 8.3 g/dL [facility] No Panel Informationon 06-12 Interpretation and review of laboratory results Normal [facility] PTH INTACTOrdered By: Marli Lizarraga on 06-12-2022 Interpretation and review of laboratory results Abnormal [facility] Parathyrin.intact [Mass/Vol] 79.7 pg/mL High 14.0 - 72.0 pg/mL [facility] URINALYSIS REFLEX TO CULTURE PERFORMABLEon 06-12-2022 Appearance (U) Clear Clear [facility] Bacteria LM Ql (Urine sed) ABSENT ABSENT [facility] Color (U) Yellow Yellow [facility] Epithelial cells.squamous LM Ql (Urine sed) 1/hpf = 1+ 1/hpf = 1+, 2-5/hpf = 2+, 0/hpf = 0+, ABSENT [facility] Glucose Test strip (U) [Mass/Vol] Negative Negative [facility] Interpretation and review of laboratory results Abnormal [facility] Ketones (U) [Mass/Vol] Trace Abnormal Negative [facility] Leukocyte esterase Test strip Ql (U) Small Abnormal Negative [facility] Nitrite Ql (U) Negative Negative [facility] pH (U) 5.5 [pH] 5.0 - [facility] Protein (U) [Mass/Vol] 30 mg/dL Abnormal Negative [facility] RBC (U) [#/Vol] Trace Abnormal Negative [facility] RBC LM.HPF (Urine sed) [#/Area] 0-2 0 - 2 /HPF [facility] Specific gravity (U) [Rel density] 1.026 [facility] Urobilinogen (U) [Mass/Vol] 0.2 E.U./dL 0.2 E.U/dL, 1.0 E.U/dL [facility] WBC LM.HPF (Urine sed) [#/Area] 10-20 Abnormal 0 - 5 /HPF [facility] URINE PROTEIN/CREA RATIO, RA NDOMon 06-12-2022 Creatinine (24H U) [Mass/Vol] 231.68 mg/dL [facility] Protein Unsp time (U) [Mass/Vol] 49 mg/dL [facility] Protein/Creatinine (U) [Mass ratio] 0.211 mg/g [facility] FK506 (TACROLIMUS) WHOLE BLO ODon 06-09-2022 Tacrolimus (FK506), Blood 9.8 ng/mL Normal 2.0-20.0 [facility] Comment on above: Result Comment: Trou gh (immediately following transplant) 15.0 . Trough (steady state, 2 weeks or more after transplant): 3.0 - 8.0 . Performed by LC-MS/MS technology. Performed By: #### U RTPCR #### [facility] [address] [place] [address] Dr. Dwight Waters ALBUMINon 06-06-2022 Albumin [Mass/Vol] 3.8 g/dL Normal 3.4-5.0 [facility] Comment on above: Performed By: #### C MP #### [facility] [address] [place] [address] Dr. Dwight Waters ALKALINE PHOSPHAon ALP [Catalytic activity/Vol] 82 U/L Normal 46-116 [facility] Comment on above: Performed By: #### C MP #### [facility] [address] [place] [address] Dr. Dwight Waters BILIRUBIN CONJUGATED (DIRECT )on 06-06-2022 BILI, CONJUGATED 0.2 mg/dL Normal 0.0-0.2 [facility] Comment on above: Performed By: #### C BC #### [facility] [address] [place] [address] Dr. Dwight Waters BILIRUBIN TOTALon 06-06-2022 Bilirubin [Mass/Vol] 1.0 mg/dL Normal 0.2-1.0 [facility] Comment on above: Performed By: #### C BC #### [facility] [address] [place] [address] Dr. Dwight Waters BUNon 06-06-2022 Urea nitrogen [Mass/Vol] 18.0 mg/dL Normal 7.0-18.0 [facility] Comment on above: Performed By: #### C BC #### [facility] [address] [place] [address] Dr. Dwight Waters CALCIUMon 06-06-2022 Calcium [Mass/Vol] 9.4 mg/dL Normal 8.5-10.1 [facility] Comment on above: Performed By: #### C MP #### [facility] [address] [place] [address] Dr. Dwight Waters CBC AUTO DIFFon 06-06-2022 BASO # 0.1 103/ul Normal 0.0-0.1 [facility] Comment on above: Performed By: #### U RTPCR #### [facility] [address] [place] [address] Dr. Dwight Waters Basophils/100 WBC (Bld) 0.8 % Normal 0.2-2.0 [facility] Comment on above: Performed By: #### U RTPCR #### [facility] [address] [place] [address] Dr. Dwight Waters EO # 0.3 103/ul Normal 0.0-0.7 [facility] Comment on above: Performed By: #### U RTPCR #### [facility] [address] [place] [address] Dr. Dwight Waters Eosinophils/100 WBC (Bld) 3.3 % Normal 0.9-7.0 [facility] Comment on above: Performed By: #### U RTPCR #### [facility] [address] [place] [address] Dr. Dwight Waters Erythrocyte distribution width (RBC) [Ratio] 12.4 % Normal 11.0-15.0 [facility] Comment on above: Performed By: #### U RTPCR #### [facility] [address] [place] [address] Dr. Dwight Waters Hematocrit (Bld) [Volume fraction] 45.1 % Normal 42.0-54.0 [facility] Comment on above: Performed By: #### U RTPCR #### [facility] [address] [place] [address] Dr. Dwight Waters Hemoglobin (Bld) [Mass/Vol] 14.4 g/dL Normal 14.0-18.0 [facility] Comment on above: Performed By: #### U RTPCR #### [facility] [address] [place] [address] Dr. Dwight Waters IG # 0.01 10e3/ul Normal 0.00-0.03 [facility] Comment on above: Performed By: #### U RTPCR #### [facility] [address] [place] [address] Dr. Dwight Waters IG % 0.1 % Normal 0.0-0.5 [facility] Comment on above: Performed By: #### U RTPCR #### [facility] [address] [place] [address] Dr. Dwight Waters LYMPH # 2.2 103/ul Normal 1.2-3.8 [facility] Comment on above: Performed By: #### U RTPCR #### [facility] [address] [place] [address] Dr. Dwight Waters Lymphocytes/100 WBC (Bld) 30.0 % Normal 20.5-60.0 [facility] Comment on above: Performed By: #### U RTPCR #### [facility] [address] [place] [address] Dr. Dwight Waters MANUAL DIFF REQ NO Normal [facility] Comment on above: Performed By: #### U RTPCR #### [facility] [address] [place] [address] Dr. Dwight Waters MCH (RBC) [Entitic mass] 28.2 pg Normal 25.9-34.0 [facility] Comment on above: Performed By: #### U RTPCR #### [facility] [address] [place] [address] Dr. Dwight Waters MCHC (RBC) [Mass/Vol] 31.9 g/dL Normal 29.9-35.2 [facility] Comment on above: Performed By: #### U RTPCR #### [facility] [address] [place] [address] Dr. Dwight Waters MCV (RBC) [Entitic vol] 88.3 fL Normal 80.0-94.0 [facility] Comment on above: Performed By: #### U RTPCR #### [facility] [address] [place] [address] Dr. Dwight Waters MONO # 0.6 103/ul Normal 0.3-0.8 [facility] Comment on above: Performed By: #### U RTPCR #### [facility] [address] [place] [address] Dr. Dwight Waters Monocytes/100 WBC (Bld) 8.2 % Normal 1.7-12.0 [facility] Comment on above: Performed By: #### U RTPCR #### [facility] [address] [place] [address] Dr. Dwight Waters NEUT # 4.3 103/ul Normal 1.4-6.5 [facility] Comment on above: Performed By: #### U RTPCR #### [facility] [address] [address] [address] Dwight Waters Neutrophils/100 WBC (Bld) 57.6 % Normal 43.0-75.0 [facility] Comment on above: Performed By: #### U RTPCR #### [facility] [address] [address] [address] Dwight Waters Platelet mean volume (Bld) [Entitic vol] 9.7 fL Normal 9.5-13.5 [facility] Comment on above: Performed By: #### U RTPCR #### [facility] [address] [place] [address] Dr. Dwight Waters PLT 297 103/ul Normal 150-450 [facility] Comment on above: Performed By: #### U RTPCR #### [facility] [address] [place] [address] Dr. Dwight Waters RBC 5.11 106/ul Normal 4.70-6.10 [facility] Comment on above: Performed By: #### U RTPCR #### [facility] [address] [place] [address] Dr. Dwight Waters WBC 7.5 103/ul Normal 4.0-11.0 [facility] Comment on above: Performed By: #### U RTPCR #### [facility] [address] [place] [address] Dr. Dwight Waters CHLORIDEon 06-06-2022 Chloride [Moles/Vol] 107 mmol/L Normal 98-107 [facility] Comment on above: Performed By: #### C BC #### [facility] [address] [place] [address] Dr. Dwight Waters CO2on 06-06-2022 CO2 [Moles/Vol] 27.4 mmol/L Normal 21.0-32.0 [facility] Comment on above: Performed By: #### C BC #### [facility] [address] [place] [address] Dr. Dwight Waters CREATININEon 06-06-2022 Creatinine [Mass/Vol] 1.20 mg/dL Normal 0.70-1.30 [facility] Comment on above: Performed By: #### C BC #### [facility] [address] [place] [address] Dr. Dwight Waters EGFR-AF UGANDAN >60 Normal >=60 [facility] Comment on above: Performed By: #### C BC #### [facility] [address] [place] [address] Dr. Dwight Waters EGFR-NON AF UGANDAN >60 Normal >=60 [facility] Comment on above: Performed By: #### C BC #### [facility] [address] [place] [address] Dr. Dwight Waters GGTon 06-06-2022 Gamma glutamyl transferase [Catalytic activity/Vol] 29 U/L Normal 15-85 [facility] Comment on above: Performed By: #### C BC #### [facility] [address] [place] [address] Dr. Dwight Waters GLUCOSE BLOODon 06-06-2022 Glucose [Mass/Vol] 112 mg/dL Critically high 74-106 [facility] Comment on above: Performed By: #### C BC #### [facility] [address] [place] [address] Dr. Dwight Waters MAGNESIUMon 06-06-2022 Magnesium [Mass/Vol] 1.3 mg/dL Critically low 1.8-2.4 [facility] Comment on above: Performed By: #### C MP #### [facility] [address] [place] [address] Dr. Dwight Waters NAon 06-06-2022 Sodium [Moles/Vol] 141 mmol/L Normal 136-145 [facility] Comment on above: Performed By: #### C MP #### [facility] [address] [place] [address] Dr. Dwight Waters PHOSPHORUSon 06-06-2022 Phosphate [Mass/Vol] 3.1 mg/dL Normal 2.6-4.7 [facility] Comment on above: Performed By: #### C MP #### [facility] [address] [place] [address] Dr. Dwight Waters POTASSIUMon 06-06-2022 Potassium [Moles/Vol] 4.3 mmol/L Normal 3.5-5.1 [facility] Comment on above: Performed By: #### C BC #### [facility] [address] [address] [address] Dwight Waters SGOTon 06-06-2022 AST [Catalytic activity/Vol] 16 U/L Normal 15-37 [facility] Comment on above: Performed By: #### C BC #### [facility] [address] [address] [address] Dwight Waters SGPTon 06-06-2022 ALT [Catalytic activity/Vol] 50 U/L Normal 16-63 [facility] Comment on above: Performed By: #### C BC #### [facility] [address] [address] [address] Dwight Waters Bacteria identified Cx Nom ( Bld)on 05-21-2022 Bacteria identified Cx Nom (Unsp spec) NO GROWTH DAY 5 OF 5 [facility] Results may be compr omised due to volume of BACT\ALERT bottle exceeding 10mLs . The optimal blood volume is 8-10 mls per aerobic/anaerobic blood culture bottle. [facility] CALCIUMon 05-20-2022 Calcium [Mass/Vol] 9.1 mg/dL 8.6 - 10. 5 mg/dL [facility] CBC,PLATELETSon 05-20-2022 Erythrocyte distribution width (RBC) [Ratio] 12.5 % 10.9 - 14.3 % [facility] Hematocrit (Bld) [Volume fraction] 37.1 % Low 39.6 - 48.8 % [facility] Hemoglobin (Bld) [Mass/Vol] 12.3 g/dL Low 13.4 - 16.8 g/dL [facility] Interpretation and review of laboratory results Abnormal [facility] MCH (RBC) [Entitic mass] 28.9 pg 26.1 - 33.3 pg [facility] MCHC (RBC) [Mass/Vol] 33.2 g/dL 31.9 - 36.5 g/dL [facility] MCV (RBC) [Entitic vol] 87.3 fL 79.0 - 94.5 fL [facility] Platelet mean volume (Bld) [Entitic vol] 9.9 fL 8.7 - 12.3 fL [facility] Platelets (Bld) [#/Vol] 234 10*3/uL 146 - 337 K/uL [facility] RBC (Bld) [#/Vol] 4.25 10*6/uL Low [facility] WBC (Bld) [#/Vol] 6.31 10*3/uL 3.73 - 10. 10 K/uL [facility] CHEM 7 (LYTES,BUN,CREA,GLUC) on 05-20-2022 Anion gap [Moles/Vol] 15 mmol/L 7 - 17 mmol/L [facility] Chloride [Moles/Vol] 111 mmol/L High 98 - 10 8 mmol/L [facility] CO2 [Moles/Vol] 22 mmol/L 21 - 31 mmol/L [facility] Creatinine [Mass/Vol] 1.10 mg/dL 0.70 - 1.30 mg/dL [facility] GFR/1.73 sq M.predicted CKD-EPI (S/P/Bld) [Vol rate/Area] 81 >=60 mL/min/1.73m 2 [facility] Comment on above: Reported eGFR is bas ed on the CKD-EPI 2020 equation using creatinine, age, and sex. Glucose [Mass/Vol] 92 mg/dL 70 - 99 mg/dL [facility] Interpretation and review of laboratory results Abnormal [facility] Osmolality Calc [Osmolality] 302 [facility] Potassium [Moles/Vol] 4.4 mmol/L 3.5 - 5.0 mmol/L [facility] Sodium [Moles/Vol] 144 mmol/L 135 - 145 mmol/L [facility] Urea nitrogen [Mass/Vol] 18 mg/dL 7 - 25 mg/dL [facility] Urea nitrogen/Creatinine [Mass ratio] 16 mg/mg [facility] MAGNESIUMon 05-20-2022 Interpretation and review of laboratory results Abnormal [facility] Magnesium [Mass/Vol] 1.5 mg/dL Low 1.6 - 2 .6 mg/dL [facility] No Panel Informationon 05-20 Interpretation and review of laboratory results Normal [facility] PHOSPHATE, INORGANICon 05-20 Phosphate [Mass/Vol] 3.3 mg/dL 2.2 - 4 .6 mg/dL [facility] RF Unspecified body [...] projections of kidneys, ureters, and bladder. FINDINGS: Barbecue Cook images: Barbecue Cook radiographs of the abdomen reveal a nonobstructive [...] Contrast refluxes up the ureter to the eagle right kidney that is grossly normal appearing. [...] projections of kidneys, ureters, and bladder. FINDINGS: Barbecue Cook images: Barbecue Cook radiographs of the abdomen reveal a nonobstructive [...] Contrast refluxes up the ureter to the eagle right kidney that is grossly normal appearing. [...] have reviewed and approved this report. [facility] Radiology Study observation (narrative) [facility] RF Unspecified body region V iews during surgeryOrdered By: Lizz Campos on 05-20-2022 [facility] Work Phone: CALCIUMon 05-19-2022 Calcium [Mass/Vol] 9.2 mg/dL 8.6 - 10. 5 mg/dL [facility] Calcium [Mass/Vol] 8.6 mg/dL 8.6 - 10. 5 mg/dL [facility] CBC,PLATELETSon 05-19-2022 Erythrocyte distribution width (RBC) [Ratio] 12.4 % 10.9 - 14.3 % [facility] Hematocrit (Bld) [Volume fraction] 38.0 % Low 39.6 - 48.8 % [facility] [facility] Hem[facility] (Bld[facility] [Mass/Vol] 12.0 g/dL Low 13.4 - 16.8 g/dL [facility] Interpretation and review of laboratory results Abnormal [facility] MCH (RBC) [Entitic mass] 28.6 pg 26.1 - 33.3 pg [facility] MCHC (RBC) [Mass/Vol] 31.6 g/dL Low 31.9 - 36.5 g/dL [facility] MCV (RBC) [Entitic vol] 90.5 fL 79.0 - 94.5 fL [facility] Platelet mean volume (Bld) [Entitic vol] 9.7 fL 8.7 - 12.3 fL [facility] Platelets (Bld) [#/Vol] 199 10*3/uL 146 - 337 K/uL [facility] RBC (Bld) [#/Vol] 4.20 10*6/uL Low [facility] WBC (Bld) [#/Vol] 6.81 10*3/uL 3.73 - 10. 10 K/uL [facility] CHEM 7 (LYTES,BUN,CREA,GLUC) on 05-19-2022 Anion gap [Moles/Vol] 13 mmol/L 7 - 17 mmol/L [facility] Chloride [Moles/Vol] 105 mmol/L 98 - 10 8 mmol/L [facility] CO2 [Moles/Vol] 30 mmol/L 21 - 31 mmol/L [facility] Creatinine [Mass/Vol] 1.39 mg/dL High 0.70 - 1.30 mg/dL [facility] GFR/1.73 sq M.predicted CKD-EPI (S/P/Bld) [Vol rate/Area] 61 >=60 mL/min/1.73m 2 [facility] Comment on above: Reported eGFR is bas ed on the CKD-EPI 2020 equation using creatinine, age, and sex. Glucose [Mass/Vol] 121 mg/dL High 70 - 99 mg/dL [facility] Interpretation and review of laboratory results Abnormal [facility] Osmolality Calc [Osmolality] 303 [facility] Potassium [Moles/Vol] 3.8 mmol/L 3.5 - 5.0 mmol/L [facility] Sodium [Moles/Vol] 144 mmol/L 135 - 145 mmol/L [facility] Urea nitrogen [Mass/Vol] 18 mg/dL 7 - 25 mg/dL [facility] Urea nitrogen/Creatinine [Mass ratio] 13 mg/mg [facility] Anion gap [Moles/Vol] 15 mmol/L 7 - 17 mmol/L [facility] Chloride [Moles/Vol] 106 mmol/L 98 - 10 8 mmol/L [facility] CO2 [Moles/Vol] 24 mmol/L 21 - 31 mmol/L [facility] Creatinine [Mass/Vol] 1.46 mg/dL High 0.70 - 1.30 mg/dL [facility] GFR/1.73 sq M.predicted CKD-EPI (S/P/Bld) [Vol rate/Area] 58 Low >=60 mL/min/1.73m 2 [facility] Comment on above: Reported eGFR is bas ed on the CKD-EPI 1 equation using creatinine, age, and sex. Glucose [Mass/Vol] 103 mg/dL High 70 - 99 mg/dL [facility] Interpretation and review of laboratory results Abnormal [facility] Osmolality Calc [Osmolality] 298 [facility] Potassium [Moles/Vol] 3.9 mmol/L 3.5 - 5.0 mmol/L [facility] Sodium [Moles/Vol] 141 mmol/L 135 - 145 mmol/L [facility] Urea nitrogen [Mass/Vol] 21 mg/dL 7 - 25 mg/dL [facility] Urea nitrogen/Creatinine [Mass ratio] 14 mg/mg [facility] MAGNESIUMon 05-19-2022 Magnesium [Mass/Vol] 2.0 mg/dL 1.6 - 2 .6 mg/dL [facility] Magnesium [Mass/Vol] 1.7 mg/dL 1.6 - 2 .6 mg/dL [facility] No Panel Informationon 05-19 Interpretation and review of laboratory results Normal [facility] Interpretation and review of laboratory results Normal [facility] PHOSPHATE, INORGANICon 05-19 Phosphate [Mass/Vol] 3.0 mg/dL 2.2 - 4 .6 mg/dL [facility] Phosphate [Mass/Vol] 2.7 mg/dL 2.2 - 4 .6 mg/dL [facility] CALCIUMon 05-18-2022 Calcium [Mass/Vol] 9.1 mg/dL 8.6 - 10. 5 mg/dL [facility] CBC,PLATELETSon 05-18-2022 Erythrocyte distribution width (RBC) [Ratio] 12.5 % 10.9 - 14.3 % [facility] Hematocrit (Bld) [Volume fraction] 37.3 % Low 39.6 - 48.8 % [facility] Hemoglobin (Bld) [Mass/Vol] 11.9 g/dL Low 13.4 - 16.8 g/dL [facility] Interpretation and review of laboratory results Abnormal [facility] MCH (RBC) [Entitic mass] 28.9 pg 26.1 - 33.3 pg [facility] MCHC (RBC) [Mass/Vol] 31.9 g/dL 31.9 - 36.5 g/dL [facility] MCV (RBC) [Entitic vol] 90.5 fL 79.0 - 94.5 fL [facility] Platelet mean volume (Bld) [Entitic vol] 10.1 fL 8.7 - 12.3 fL [facility] Platelets (Bld) [#/Vol] 189 10*3/uL 146 - 337 K/uL [facility] RBC (Bld) [#/Vol] 4.12 10*6/uL Low [facility] WBC (Bld) [#/Vol] 10.19 10*3/uL High 3.73 - 10 .10 K/uL [facility] CHEM 7 (LYTES,BUN,CREA,GLUC) on 05-18-2022 Anion gap [Moles/Vol] 13 mmol/L 7 - 17 mmol/L [facility] Chloride [Moles/Vol] 102 mmol/L 98 - 10 8 mmol/L [facility] CO2 [Moles/Vol] 26 mmol/L 21 - 31 mmol/L [facility] Creatinine [Mass/Vol] 1.91 mg/dL High 0.70 - 1.30 mg/dL [facility] GFR/1.73 sq M.predicted CKD-EPI (S/P/Bld) [Vol rate/Area] 42 Low >=60 mL/min/1.73m 2 [facility] Comment on above: Reported eGFR is bas ed on the CKD-EPI 2020 equation using creatinine, age, and sex. Glucose [Mass/Vol] 158 mg/dL High 70 - 99 mg/dL [facility] Osmolality Calc [Osmolality] 297 [facility] Potassium [Moles/Vol] 4.0 mmol/L 3.5 - 5.0 mmol/L [facility] Sodium [Moles/Vol] 137 mmol/L 135 - 145 mmol/L [facility] Urea nitrogen [Mass/Vol] 30 mg/dL High 7 - 25 mg/dL [facility] Urea nitrogen/Creatinine [Mass ratio] 16 mg/mg [facility] CHEM 7 (LYTES,BUN,CREA,GLUC) Ordered By: Tamiko Thapa on 05-18-2022 Anion gap [Moles/Vol] 13 mmol/L 7 - 17 mmol/L [facility] Chloride [Moles/Vol] 104 mmol/L 98 - 10 8 mmol/L [facility] CO2 [Moles/Vol] 26 mmol/L 21 - 31 mmol/L [facility] Creatinine [Mass/Vol] 2.96 mg/dL High 0.70 - 1.30 mg/dL [facility] GFR/1.73 sq M.predicted CKD-EPI (S/P/Bld) [Vol rate/Area] 25 Low >=60 mL/min/1.73m 2 [facility] Comment on above: Reported eGFR is bas ed on the CKD-EPI 2020 equation using creatinine, age, and sex. Glucose [Mass/Vol] 136 mg/dL High 70 - 99 mg/dL [facility] Interpretation and review of laboratory results Abnormal [facility] Osmolality Calc [Osmolality] 304 [facility] Potassium [Moles/Vol] 4.2 mmol/L 3.5 - 5.0 mmol/L [facility] Sodium [Moles/Vol] 139 mmol/L 135 - 145 mmol/L [facility] Urea nitrogen [Mass/Vol] 41 mg/dL High 7 - 25 mg/dL [facility] Urea nitrogen/Creatinine [Mass ratio] 14 mg/mg [facility] MAGNESIUMon 05-18-2022 Magnesium [Mass/Vol] 2.2 mg/dL 1.6 - 2 .6 mg/dL [facility] Interpretation and review of laboratory results Normal [facility] Magnesium [Mass/Vol] 1.7 mg/dL 1.6 - 2 .6 mg/dL [facility] No Panel Informationon 05-18 Interpretation and review of laboratory results Abnormal [facility] Interpretation and review of laboratory results Normal [facility] PHOSPHATE, INORGANICon 05-18 Phosphate [Mass/Vol] 2.0 mg/dL Low 2.2 - 4 .6 mg/dL [facility] Interpretation and review of laboratory results Normal [facility] Phosphate [Mass/Vol] 2.8 mg/dL 2.2 - 4 .6 mg/dL [facility] PT,INR,PTTon 05-18-2022 aPTT Coag (PPP) [Time] 31.0 s [facility] INR Coag (Bld) [Relative time] 1.1 {INR} [facility] Interpretation and review of laboratory results Abnormal [facility] PT Coag (PPP) [Time] 14.4 s [place] [facility] URINE CULTUREOrdered By: Sylvia Campos on 05-18-2022 Bacteria identified Cx Nom (Unsp spec) No Growth [facility] CBC,PLATELETSon 05-17-2022 Erythrocyte distribution width (RBC) [Ratio] 12.8 % 10.9 - 14.3 % [facility] Hematocrit (Bld) [Volume fraction] 42.8 % 39.6 - 48.8 % [facility] Hemoglobin (Bld) [Mass/Vol] 13.3 g/dL Low 13.4 - 16.8 g/dL [facility] Interpretation and review of laboratory results Abnormal [facility] MCH (RBC) [Entitic mass] 28.9 pg 26.1 - 33.3 pg [facility] MCHC (RBC) [Mass/Vol] 31.1 g/dL Low 31.9 - 36.5 g/dL [facility] MCV (RBC) [Entitic vol] 92.8 fL 79.0 - 94.5 fL [facility] Platelet mean volume (Bld) [Entitic vol] 10.3 fL 8.7 - 12.3 fL [facility] Platelets (Bld) [#/Vol] 188 10*3/uL 146 - 337 K/uL [facility] RBC (Bld) [#/Vol] 4.61 10*6/uL [facility] WBC (Bld) [#/Vol] 16.61 10*3/uL High 3.73 - 10 .10 K/uL [facility] CHEM 7 (LYTES,BUN,CREA,GLUC) Ordered By: Kaylah Mc on 05-17-2022 Anion gap [Moles/Vol] 15 mmol/L 7 - 17 mmol/L [facility] Chloride [Moles/Vol] 103 mmol/L 98 - 10 8 mmol/L [facility] CO2 [Moles/Vol] 23 mmol/L 21 - 31 mmol/L [facility] Creatinine [Mass/Vol] 5.95 mg/dL High 0.70 - 1.30 mg/dL [facility] GFR/1.73 sq M.predicted CKD-EPI (S/P/Bld) [Vol rate/Area] 11 Low >=60 mL/min/1.73m 2 [facility] Comment on above: Reported eGFR is bas ed on the CKD-EPI 2020 equation using creatinine, age, and sex. Glucose [Mass/Vol] 165 mg/dL High 70 - 99 mg/dL [facility] Interpretation and review of laboratory results Abnormal [facility] Osmolality Calc [Osmolality] 305 [facility] Potassium [Moles/Vol] 4.6 mmol/L 3.5 - 5.0 mmol/L [facility] Sodium [Moles/Vol] 136 mmol/L 135 - 145 mmol/L [facility] Urea nitrogen [Mass/Vol] 52 mg/dL High 7 - 25 mg/dL [facility] Urea nitrogen/Creatinine [Mass ratio] 9 mg/mg [facility] CHEM 7 (LYTES,BUN,CREA,GLUC) Ordered By: Kehinde Gutierrez on 05-17-2022 Anion gap [Moles/Vol] 24 mmol/L High 7 - 17 mmol/L [facility] Chloride [Moles/Vol] 100 mmol/L 98 - 10 8 mmol/L [facility] CO2 [Moles/Vol] 16 mmol/L Low 21 - 31 mmol/L [facility] Creatinine [Mass/Vol] 8.08 mg/dL High 0.70 - 1.30 mg/dL [facility] GFR/1.73 sq M.predicted CKD-EPI (S/P/Bld) [Vol rate/Area] 7 Low >=60 mL/min/1.73m 2 [facility] Comment on above: Reported eGFR is bas ed on the CKD-EPI 2020 equation using creatinine, age, and sex. Glucose [Mass/Vol] 164 mg/dL High 70 - 99 mg/dL [facility] Interpretation and review of laboratory results Abnormal [facility] Osmolality Calc [Osmolality] 305 [facility] Potassium [Moles/Vol] 5.0 mmol/L 3.5 - 5.0 mmol/L [facility] Sodium [Moles/Vol] 135 mmol/L 135 - 145 mmol/L [facility] Urea nitrogen [Mass/Vol] 56 mg/dL High 7 - 25 mg/dL [facility] Urea nitrogen/Creatinine [Mass ratio] 7 mg/mg [facility] LAVENDER TOP TUBEon 05-17-20 [facility] MAGNESIUMon 05-17-2022 Interpretation and review of laboratory results Normal [facility] Magnesium [Mass/Vol] 1.8 mg/dL 1.6 - 2 .6 mg/dL [facility] Interpretation and review of laboratory results Normal [facility] Magnesium [Mass/Vol] 1.6 mg/dL 1.6 - 2 .6 mg/dL [facility] No Panel Informationon 05-17 [facility] PHOSPHATE, INORGANICon 05-17 Interpretation and review of laboratory results Abnormal [facility] Phosphate [Mass/Vol] 4.9 mg/dL High 2.2 - 4 .6 mg/dL [facility] PT,INR,PTTon 05-17-2022 aPTT Coag (PPP) [Time] 33.0 s [facility] INR Coag (Bld) [Relative time] 1.3 {INR} High [facility] Interpretation and review of laboratory results Abnormal [facility] PT Coag (PPP) [Time] 15.7 s High [facility] Viewson IMPRESSION: [...] Stable cardiomegaly. IMPRESSION IMPRESSION: No acute findings. [facility] Radiology Study observation (narrative) [facility] Portable XR Chest ViewsOrder ed By: Raheem Sanz on 05-17-2022 [facility] Work Phone: URINALYSISOrdered By: Michael patel Ma on 05-17-2022 Appearance (U) Cloudy Abnormal Clear [facility] Comment on above: Results may be inacc urate due to color interference. Clinical correlation recommended. Bacteria LM Ql (Urine sed) ABSENT ABSENT [facility] Color (U) Red Abnormal Yellow [facility] Comment on above: Results may be inacc urate due to color interference. Clinical correlation recommended. Epithelial cells.squamous LM Ql (Urine sed) ABSENT 1/hpf = 1+, 2-5/hpf = 2+, 0/hpf = 0+, ABSENT [facility] Glucose Test strip (U) [Mass/Vol] Negative Negative [facility] Comment on above: Results may be inacc urate due to color interference. Clinical correlation recommended. Interpretation and review of laboratory results Abnormal [facility] Ketones (U) [Mass/Vol] Trace Abnormal Negative [facility] Comment on above: Results may be inacc urate due to color interference. Clinical correlation recommended. Leukocyte esterase Test strip Ql (U) Large Abnormal Negative [facility] Comment on above: Results may be inacc urate due to color interference. Clinical correlation recommended. Nitrite Ql (U) Negative Negative [facility] Comment on above: Results may be inacc urate due to color interference. Clinical correlation recommended. pH (U) 5.0 [pH] 5.0 - 7.0 [facility] Comment on above: Results may be inacc urate due to color interference. Clinical correlation recommended. Protein (U) [Mass/Vol] mg/dL Abnormal Negative [facility] Comment on above: Results may be inacc urate due to color interference. Clinical correlation recommended. RBC (U) [#/Vol] Large Abnormal Negative [facility] Comment on above: Results may be inacc urate due to color interference. Clinical correlation recommended. RBC LM.HPF (Urine sed) [#/Area] /[HPF] Abnormal 0 - 2 /HPF [facility] Specific gravity (U) [Rel density] 1.016 [facility] Comment on above: Results may be inacc urate due to color interference. Clinical correlation recommended. Urobilinogen (U) [Mass/Vol] 0.2 E.U./dL 0.2 E.U/dL, 1.0 E.U/dL [facility] Comment on above: Results may be inacc urate due to color interference. Clinical correlation recommended. WBC LM.HPF (Urine sed) [#/Area] /[HPF] Abnormal 0 - 5 /HPF [facility] URINE CULTUREOrdered By: Tyler Tiwari on 05-17-2022 Bacteria identified Cx Nom (Unsp spec) No Growth [facility] CBC,PLATELETSon 05-16-2022 Erythrocyte distribution width (RBC) [Ratio] 12.9 % 10.9 - 14.3 % [facility] Hematocrit (Bld) [Volume fraction] 46.5 % 39.6 - 48.8 % [facility] Hemoglobin (Bld) [Mass/Vol] 14.7 g/dL 13.4 - 16.8 g/dL [facility] Interpretation and review of laboratory results Abnormal [facility] MCH (RBC) [Entitic mass] 28.3 pg 26.1 - 33.3 pg [facility] MCHC (RBC) [Mass/Vol] 31.6 g/dL Low 31.9 - 36.5 g/dL [facility] MCV (RBC) [Entitic vol] 89.6 fL 79.0 - 94.5 fL [facility] Platelet mean volume (Bld) [Entitic vol] 10.3 fL 8.7 - 12.3 fL [facility] Platelets (Bld) [#/Vol] 188 10*3/uL 146 - 337 K/uL [facility] RBC (Bld) [#/Vol] 5.19 10*6/uL [facility] WBC (Bld) [#/Vol] 12.55 10*3/uL High 3.73 - 10 .10 K/uL [facility] CHEM 7 (LYTES,BUN,CREA,GLUC) Ordered By: Alma Pena on 05-16-2022 Anion gap [Moles/Vol] 14 mmol/L 7 - 17 mmol/L [facility] Chloride [Moles/Vol] 103 mmol/L 98 - 10 8 mmol/L [facility] CO2 [Moles/Vol] 22 mmol/L 21 - 31 mmol/L [facility] Creatinine [Mass/Vol] 6.09 mg/dL High 0.70 - 1.30 mg/dL [facility] GFR/1.73 sq M.predicted CKD-EPI (S/P/Bld) [Vol rate/Area] 10 Low >=60 mL/min/1.73m 2 [facility] Comment on above: Reported eGFR is bas ed on the CKD-EPI 2021 equation using creatinine, age, and sex. Glucose [Mass/Vol] 134 mg/dL High 70 - 99 mg/dL [facility] Interpretation and review of laboratory results Abnormal [facility] Osmolality Calc [Osmolality] 298 [facility] Potassium [Moles/Vol] 4.9 mmol/L 3.5 - 5.0 mmol/L [facility] Sodium [Moles/Vol] 134 mmol/L Low 135 - 145 mmol/L [facility] Comment on above: Results inconsistent with previous results Urea nitrogen [Mass/Vol] 49 mg/dL High 7 - 25 mg/dL [facility] Urea nitrogen/Creatinine [Mass ratio] 8 mg/mg [facility] CHEM 7 (LYTES,BUN,CREA,GLUC) on 05-16-2022 Anion gap [Moles/Vol] 17 mmol/L 7 - 17 mmol/L [facility] Chloride [Moles/Vol] 106 mmol/L 98 - 10 8 mmol/L [facility] CO2 [Moles/Vol] 22 mmol/L 21 - 31 mmol/L [facility] Creatinine [Mass/Vol] 5.23 mg/dL High 0.70 - 1.30 mg/dL [facility] GFR/1.73 sq M.predicted CKD-EPI (S/P/Bld) [Vol rate/Area] 13 Low >=60 mL/min/1.73m 2 [facility] Comment on above: Reported eGFR is bas ed on the CKD-EPI 1 equation using creatinine, age, and sex. Glucose [Mass/Vol] 116 mg/dL High 70 - 99 mg/dL [facility] Interpretation and review of laboratory results Abnormal [facility] Osmolality Calc [Osmolality] 305 [facility] Potassium [Moles/Vol] 4.6 mmol/L 3.5 - 5.0 mmol/L [facility] Sodium [Moles/Vol] 140 mmol/L 135 - 145 mmol/L [facility] Urea nitrogen [Mass/Vol] 42 mg/dL High 7 - 25 mg/dL [facility] Urea nitrogen/Creatinine [Mass ratio] 8 mg/mg [facility] EXTRA MICROon 05-16-2022 [facility] LT BLUE TOP TUBEon [facility] LYTES (NA, K, CL) - URINE - RANDOMon 05-16-2022 Chloride (24H U) [Moles/Vol] 68 mmol/L [facility] Potassium (24H U) [Moles/Vol] 36.7 mmol/L [facility] Sodium (24H U) [Moles/Vol] 55 mmol/L [facility] The reference range has not been established for random urine specimens. The test result should be integrated into the clinical context for interpretation. [facility] MAGNESIUMon 05-16-2022 Interpretation and review of laboratory results Normal [facility] Magnesium [Mass/Vol] 1.7 mg/dL 1.6 - 2 .6 mg/dL [facility] NOVEL CORONAVIRUS PCROrdered By: Edson Candelario on 05-16-2022 SARS-CoV-2 (COVID-19) RNA ESTELITA+probe Ql (Unsp spec) Not detected NOT DETECTED [facility] Comment on above: [facility] Negative results [...] use authorization for use by authorized laboratories. [facility] No Panel Informationon 05-16 [facility] OSMOLALITY, URINEon 05-16-20 Interpretation and review of laboratory results Normal [facility] Osmolality (U) [Osmolality] 320 mosm/kg [facility] The reference range has not been established for random urine specimens. The test result should be integrated into the clinical context for interpretation. [facility] PROCALCITONINon 05-16-2022 Interpretation and review of laboratory results Normal [facility] Procalcitonin [Mass/Vol] 0.18 ng/mL <0.50 [facility] Comment on above: Procalcitonin is an [...] and trend procalcitonin in various clinical settings. [email or web address] Two common cutoffs associated with bacterial infections are as follows. Respiratory tract infections: >0.25 ng/mL Sepsis/septic shock: >0.5 ng/mL Procalcitonin should not be used alone as a diagnostic tool, however. All procalcitonin results should be interpreted in association with the patients clinical condition and all laboratory findings. [facility] PT,INR,PTTon 05-16-2022 aPTT Coag (PPP) [Time] 30.3 s [facility] INR Coag (Bld) [Relative time] 1.1 {INR} [facility] Interpretation and review of laboratory results Normal [facility] PT Coag (PPP) [Time] 14.1 s [facility] SARS-CoV-2 (COVID-19) RNA NA A+probe Ql (Unsp spec)Ordered By: Edson Candelario on 05-16-2022 Interpretation and review of laboratory results [facility] TACROLIMUS LEVEL, TROUGH (MS E DRUG LEVEL)Ordered By: Mariama Nick on 05-16-2022 Interpretation and review of laboratory results Normal [facility] Tacrolimus (Bld) [Mass/Vol] 4.1 ng/mL Bone Marrow Transplant: 4.0-12.0, Therapeutic: 5.0-15.0 [facility] Method performed is a chemiluminescent microparticle immunoasssay on the [employer] i2000. The range is based on experience at [facility] and users should be aware that target concentrations vary widely depending on concomitant therapy, time post-transplant, and desired degree of immunosuppression. [facility] URINE PROTEIN/CREA RATIO, RA Baljit 05-16-2022 Creatinine (24H U) [Mass/Vol] 59.82 mg/dL [facility] Protein Unsp time (U) [Mass/Vol] 111 mg/dL [facility] Protein/Creatinine (U) [Mass ratio] 1.856 mg/g [facility] US for transplanted [...] appearing vascular flow in the transplant kidney. [facility] Radiology Study observation (narrative) [facility] US for transplanted kidney l imitedOrdered By: Rosendo Matute on 05-16-2022 [facility] Work Phone: CBC AND ELECTRONIC DIFFon Basophils (Bld) [#/Vol] 10*3/uL 0.00 - 0.09 K/uL [facility] Basophils/100 WBC (Bld) 0.2 % [facility] Differential cell count method Nom (Bld) Electronic Differential [facility] Eosinophils (Bld) [#/Vol] 10*3/uL 0.00 - 0.48 K/uL [facility] Eosinophils/100 WBC (Bld) 0.0 % [facility] Erythrocyte distribution width (RBC) [Ratio] 12.8 % 10.9 - 14.3 % [facility] Hematocrit (Bld) [Volume fraction] 46.0 % 39.6 - 48.8 % [facility] Hemoglobin (Bld) [Mass/Vol] 14.6 g/dL 13.4 - 16.8 g/dL [facility] Immature granulocytes (Bld) [#/Vol] 0.07 10*3/uL <=0.08 [facility] Immature granulocytes/100 WBC (Bld) 0.4 % [facility] Interpretation and review of laboratory results Abnormal [facility] Lymphocytes (Bld) [#/Vol] 1.49 10*3/uL 0.83 - 3.57 K/uL [facility] Lymphocytes/100 WBC (Bld) 9.4 % [facility] MCH (RBC) [Entitic mass] 28.2 pg 26.1 - 33.3 pg [facility] MCHC (RBC) [Mass/Vol] 31.7 g/dL Low 31.9 - 36.5 g/dL [facility] [facility] MCV (RBC) [Entitic vol] 89.0 fL 79.0 - 94.5 fL [facility] Monocytes (Bld) [#/Vol] 1.45 10*3/uL High 0.24 - 0.93 K/uL [facility] Monocytes/100 WBC (Bld) 9.2 % [facility] Neutrophils (Bld) [#/Vol] 12.77 10*3/uL High 1.57 - 6.19 K/uL [facility] Nucleated RBC/100 WBC (Bld) [Ratio] 0.0 % <=0.2 /100 WBC [facility] Platelet mean volume (Bld) [Entitic vol] 9.9 fL 8.7 - 12.3 fL [facility] Platelets (Bld) [#/Vol] 250 10*3/uL 146 - 337 K/uL [facility] RBC (Bld) [#/Vol] 5.17 10*6/uL [facility] Segmented neutrophils/100 WBC (Bld) 80.8 % [facility] WBC (Bld) [#/Vol] 15.81 10*3/uL High 3.73 - 10 .10 K/uL [facility] CBC AUTO DIFFon 05-15-2022 BASO # 0.0 103/ul Normal 0.0-0.1 [facility] Comment on above: Performed By: #### C BC #### [facility] [address] [place] [address] Dr. Dwight Waters Basophils/100 WBC (Bld) 0.3 % Normal 0.2-2.0 [facility] Comment on above: Performed By: #### C BC #### [facility] [address] [place] [address] Dr. Dwight Waters EO # 0.1 103/ul Normal 0.0-0.7 [facility] Comment on above: Performed By: #### C BC #### [facility] [address] [place] [address] Dr. Dwight Waters Eosinophils/100 WBC (Bld) 0.8 % Critically low 0.9-7.0 [facility] Comment on above: Performed By: #### C BC #### [facility] [address] [place] [address] Dr. Dwight Waters Erythrocyte distribution width (RBC) [Ratio] 12.7 % Normal 11.0-15.0 [facility] Comment on above: Performed By: #### C BC #### [facility] [address] [place] [address] Dr. Dwight Waters Hematocrit (Bld) [Volume fraction] 43.5 % Normal 42.0-54.0 [facility] Comment on above: Performed By: #### C BC #### [facility] [address] [place] [address] Dr. Dwight Waters Hemoglobin (Bld) [Mass/Vol] 14.4 g/dL Normal 14.0-18.0 [facility] Comment on above: Performed By: #### C BC #### [facility] [address] [place] [address] Dr. Dwight Waters IG # 0.02 10e3/ul Normal 0.00-0.03 [facility] Comment on above: Performed By: #### C BC #### [facility] [address] [place] [address] Dr. Dwight Waters IG % 0.2 % Normal 0.0-0.5 [facility] Comment on above: Performed By: #### C BC #### [facility] [address] [place] [address] Dr. Dwight Waters LYMPH # 1.5 103/ul Normal 1.2-3.8 [facility] Comment on above: Performed By: #### C BC #### [facility] [address] [place] [address] Dr. Dwight Waters Lymphocytes/100 WBC (Bld) 12.5 % Critically low 20.5-60.0 [facility] Comment on above: Performed By: #### C BC #### [facility] [address] [place] [address] Dr. Diwght Waters MANUAL DIFF REQ NO Normal [facility] Comment on above: Performed By: #### C BC #### [facility] [address] [place] [address] Dr. Dwight Waters MCH (RBC) [Entitic mass] 28.6 pg Normal 25.9-34.0 [facility] Comment on above: Performed By: #### C BC #### [facility] [address] [place] [address] Dr. Dwight Waters MCHC (RBC) [Mass/Vol] 33.1 g/dL Normal 29.9-35.2 [facility] Comment on above: Performed By: #### C BC #### [facility] [address] [place] [address] Dr. Dwight Waters MCV (RBC) [Entitic vol] 86.3 fL Normal 80.0-94.0 [facility] Comment on above: Performed By: #### C BC #### [facility] [address] [place] [address] Dr. Dwight Waters MONO # 1.0 103/ul Critically high 0.3-0.8 [facility] Comment on above: Performed By: #### C BC #### [facility] [address] [place] [address] Dr. Dwight Waters Monocytes/100 WBC (Bld) 8.2 % Normal 1.7-12.0 [facility] Comment on above: Performed By: #### C BC #### [facility] [address] [place] [address] Dr. Dwight Waters NEUT # 9.1 103/ul Critically high 1.4-6.5 [facility] Comment on above: Performed By: #### C BC #### [facility] [address] [place] [address] Dr. Dwight Waters Neutrophils/100 WBC (Bld) 78.0 % Critically high 43.0-75.0 [facility] Comment on above: Performed By: #### C BC #### [facility] [address] [place] [address] Dr. Dwight Waters Platelet mean volume (Bld) [Entitic vol] 9.8 fL Normal 9.5-13.5 [facility] Comment on above: Performed By: #### C BC #### [facility] [address] [place] [address] Dr. Dwight Waters PLT 251 103/ul Normal 150-450 [facility] Comment on above: Performed By: #### C BC #### [facility] [address] [place] [address] Dr. Dwight Waters RBC 5.04 106/ul Normal 4.70-6.10 [facility] Comment on above: Performed By: #### C BC #### [facility] [address] [place] [address] Dr. Dwight Waters WBC 11.6 103/ul Critically high 4.0-11.0 [facility] Comment on above: Performed By: #### C BC #### [facility] [address] [place] [address] Dr. Dwight Waters CHEM 6 (LYTES, BUN CREA)on 0 05-15-2022 Anion gap [Moles/Vol] 12 mmol/L 7 - 17 mmol/L [facility] Chloride [Moles/Vol] 105 mmol/L 98 - 10 8 mmol/L [facility] CO2 [Moles/Vol] 26 mmol/L 21 - 31 mmol/L [facility] Creatinine [Mass/Vol] 2.85 mg/dL High 0.70 - 1.30 mg/[facility] GFR/1.73 sq M.predicted CKD-EPI (S/P/Bld) [Vol rate/Area] 26 Low >=60 mL/min/1.73m [address] [facility] Comment on above: Reported eGFR is bas ed on the CKD-EPI 2020 equation using creatinine, age, and sex. Potassium [Moles/Vol] 4.6 mmol/L 3.5 - 5.0 mmol/L [facility] Sodium [Moles/Vol] 138 mmol/L 135 - 145 mmol/L [facility] Urea nitrogen [Mass/Vol] 32 mg/dL High 7 - 25 mg/dL [facility] Urea nitrogen/Creatinine [Mass ratio] 11 mg/mg [facility] CT ABD/PELVIS WO CONon 05-15 CT [...] transplanted kidney with moderate right-sided hydronephrosis. Atrophic eagle kidneys with moderate right-sided hydronephrosis. Multiple nonobstructive [...] transplanted kidney with moderate right-sided hydronephrosis. Atrophic eagle kidneys with moderate right-sided hydronephrosis. Multiple nonobstructive right renal calculi measuring up to 8 mm. FOLLOW-UP: Follow-up as clinically indicated. Electronically authenticated by: LYNDSAY JEAN Date: 2022-05-15 05:04 Normal [facility] Covid-19 PCR (CVDTBH)on 04-30 SARS-CoV-2 (COVID-19) RNA ESTELITA+probe Ql (Unsp spec) Not detected Normal NOT DETECTED [facility] Comment on above: Result Comment: When [...] for this test is supported by the [employer] Manager of Health and Human Service's declaration that [...] used). Performed By: #### U RTPCR #### [facility] [address] [place] [address] Dr. Dwight Waters GLUCOSEon 05-15-2022 Glucose [Mass/Vol] 141 mg/dL High 70 - 99 mg/dL [facility] GOLD TOP TUBEon 05-15-2022 [facility] HEPATIC FUNCTION PANELon Albumin [Mass/Vol] 4.3 g/dL 3.5 - 5.0 g/dL [facility] ALP [Catalytic activity/Vol] 85 U/L 32 - 126 U/L [facility] ALT [Catalytic activity/Vol] 13 U/L 10 - 52 U/L [facility] AST [Catalytic activity/Vol] 15 U/L 10 - 39 U/L [facility] Bilirubin [Mass/Vol] 0.8 mg/dL <1.5 [facility] Bilirubin.direct [Mass/Vol] 0.2 mg/dL <0.3 [facility] Interpretation and review of laboratory results Normal [facility] Protein [Mass/Vol] 7.3 g/dL 6.4 - 8.3 g/dL [facility] LIPASEon 05-15-2022 Lipase [Catalytic activity/Vol] 8 U/L Low 11 - 82 U/L [facility] No Panel Informationon 05-15 Interpretation and review of laboratory results Abnormal [facility] PROF 14(COMP METB)on 022 Albumin [Mass/Vol] 3.8 g/dL Normal 3.4-5.0 [facility] Comment on above: Performed By: #### U RTPCR #### [facility] [address] [place] [address] Dr. Dwight Waters Albumin/Globulin [Mass ratio] 1.1 {ratio} Normal [facility] Comment on above: Performed By: #### U RTPCR #### [facility] [address] [place] [address] Dr. Dwight Waters ALP [Catalytic activity/Vol] 92 U/L Normal 46-116 [facility] Comment on above: Performed By: #### U RTPCR #### [facility] [address] [place] [address] Dr. Dwight Waters ALT [Catalytic activity/Vol] 25 U/L Normal 16-63 [facility] Comment on above: Performed By: #### U RTPCR #### [facility] [address] [place] [address] Dr. Dwight Waters Anion gap [Moles/Vol] 14.6 mmol/L Normal [facility] Comment on above: Performed By: #### U RTPCR #### [facility] [address] [place] [address] Dr. Dwight Waters AST [Catalytic activity/Vol] 17 U/L Normal 15-37 [facility] Comment on above: Performed By: #### U RTPCR #### [facility] [address] [place] [address] Dr. Dwight Waters Bilirubin [Mass/Vol] 0.6 mg/dL Normal 0.2-1.0 [facility] Comment on above: Performed By: #### U RTPCR #### [facility] [address] [address] [address] Dwight Waters Calcium [Mass/Vol] 9.9 mg/dL Normal 8.5-10.1 [facility] Comment on above: Performed By: #### U RTPCR #### [facility] [address] [address] [address] Dwight Waters Chloride [Moles/Vol] 106 mmol/L Normal 98-107 [facility] Comment on above: Performed By: #### U RTPCR #### [facility] [address] [address] [address] Dwight Waters CO2 [Moles/Vol] 24.2 mmol/L Normal 21.0-32.0 [facility] Comment on above: Performed By: #### U RTPCR #### [facility] [address] [address] [address] Dwight Waters Creatinine [Mass/Vol] 1.58 mg/dL Critically high 0.70-1.30 [facility] Comment on above: Performed By: #### U RTPCR #### [facility] [address] [address] [address] Dwight Waters EGFR-AF UGANDAN 56 mL/min/1.73m2 Critically low >=60 [facility] Comment on above: Performed By: #### U RTPCR #### [facility] [address] [address] [address] Dwight Waters EGFR-NON AF UGANDAN 46 mL/min/1.73m2 Critically low >=60 [facility] Comment on above: Performed By: #### U RTPCR #### [facility] [address] [address] [address] Dwight Waters Globulin (S) [Mass/Vol] 3.5 g/dL Normal [facility] Comment on above: Performed By: #### U RTPCR #### [facility] [address] [address] [address] Dwight Waters Glucose [Mass/Vol] 162 mg/dL Critically high 74-106 [facility] Comment on above: Performed By: #### U RTPCR #### [facility] [address] [address] [address] Dwight aWters Potassium [Moles/Vol] 3.8 mmol/L Normal 3.5-5.1 [facility] Comment on above: Performed By: #### U RTPCR #### [facility] [address] [address] [address] Dwight Waters Protein [Mass/Vol] 7.3 g/dL Normal 6.4-8.2 [facility] Comment on above: Performed By: #### U RTPCR #### [facility] [address] [address] [address] Dwight Waters Sodium [Moles/Vol] 141 mmol/L Normal 136-145 [facility] Comment on above: Performed By: #### U RTPCR #### [facility] [address] [address] [address] Dwight Waters Urea nitrogen [Mass/Vol] 22.0 mg/dL Critically high 7.0-18.0 [facility] Comment on above: Performed By: #### U RTPCR #### [facility] [address] [address] [address] Dwight Waters Urea nitrogen/Creatinine [Mass ratio] 13.9 mg/mg Normal [facility] Comment on above: Performed By: #### U RTPCR #### [facility] [address] [address] [address] Dwight Waters Portable XR Chest Viewson [...] chest. IMPRESSION IMPRESSION: No acute cardiopulmonary disease [facility] Radiology Study observation (narrative) [facility] Portable XR Chest ViewsOrder ed By: Vladislav Omer on 05-15-2022 [facility] URINE DIPSTICK; REFLEX MICRO SCOPY; REFLEX CULTURE PERFORMABLEon 05-15-2022 Appearance (U) Clear Clear [facility] Color (U) Yellow Yellow [facility] Glucose Test strip (U) [Mass/Vol] 100 mg/dL Abnormal Negative [facility] Interpretation and review of laboratory results Abnormal [facility] Ketones (U) [Mass/Vol] Negative Negative [facility] Leukocyte esterase Test strip Ql (U) Large Abnormal Negative [facility] Nitrite Ql (U) Negative Negative [facility] pH (U) 6.0 [pH] 5.0 - 7.0 [facility] Protein (U) [Mass/Vol] 100 mg/dL Abnormal Negative [facility] RBC (U) [#/Vol] Large Abnormal Negative [facility] Specific gravity (U) [Rel density] 1.010 [facility] Urobilinogen (U) [Mass/Vol] 0.2 E.U./dL 0.2 E.U/dL, 1.0 E.U/dL [facility] URINE MICROSCOPIC WITH REFLE X TO CULTUREOrdered By: Rey Bro on 05-15-2022 Bacteria LM Ql (Urine sed) ABSENT ABSENT [facility] Epithelial cells.squamous LM Ql (Urine sed) ABSENT 1/hpf = 1+, 2-5/hpf = 2+, 0/hpf = 0+, ABSENT [facility] Interpretation and review of laboratory results Abnormal [facility] RBC LM.HPF (Urine sed) [#/Area] /[HPF] Abnormal 0 - 2 /HPF [facility] WBC LM.HPF (Urine sed) [#/Area] 10-20 Abnormal 0 - 5 [facility]-12 CT ABD/PELVIS WO CON Begin Addendum #[address] Lund 3:25 PM EST 05/11/2022. Begin Addendum #2 IMPRESSION below should also contain the followin. 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 The eagle kidneys are progressively atrophic bilaterally compared to [...] of 06/14/2020 are no longer present. The eagle distal right ureter is decompressed beyond this [...] with surgical history for renal graft and eagle right urinary drainage, as a discrete ureteroneocystostomy is not identified, and the graft may be draining via a ureteroureterostomy. Urology consultation recommended. 3. The eagle kidneys are bilaterally atrophic, with right renal sinus calcifications consistent with nonobstructing right eagle renal calculi up to 6 mm. Normal [facility] CBC AUTO DIFFon 05-11-2022 BASO # 0.1 103/ul Normal 0.0-0.1 [facility] Comment on above: Performed By: #### U RTPCR #### [facility] [address] [place], [place] [address] Dr. Dwight Waters Basophils/100 WBC (Bld) 0.8 % Normal 0.2-2.0 [facility] Comment on above: Performed By: #### U RTPCR #### [facility] [address] [place], [place] [address] Dr. Dwight Waters EO # 0.2 103/ul Normal 0.0-0.7 [facility] Comment on above: Performed By: #### U RTPCR #### [facility] [address] [place] [address] Dr. Dwight Waters Eosinophils/100 WBC (Bld) 2.5 % Normal 0.9-7.0 [facility] Comment on above: Performed By: #### U RTPCR #### [facility] [address] [place] [address] Dr. Dwight Waters Erythrocyte distribution width (RBC) [Ratio] 12.5 % Normal 11.0-15.0 [facility] Comment on above: Performed By: #### U RTPCR #### [facility] [address] [place] [address] Dr. Dwight Waters Hematocrit (Bld) [Volume fraction] 48.3 % Normal 42.0-54.0 [facility] Comment on above: Performed By: #### U RTPCR #### [facility] [address] [place] [address] Dr. Dwight Waters Hemoglobin (Bld) [Mass/Vol] 15.3 g/dL Normal 14.0-18.0 [facility] Comment on above: Performed By: #### U RTPCR #### [facility] [address] [place] [address] Dr. Dwight Waters IG # 0.01 10e3/ul Normal 0.00-0.03 [facility] Comment on above: Performed By: #### U RTPCR #### [facility] [address] [place] [address] Dr. Dwight Waters IG % 0.2 % Normal 0.0-0.5 [facility] Comment on above: Performed By: #### U RTPCR #### [facility] [address] [place] [address] Dr. Dwight Waters LYMPH # 1.9 103/ul Normal 1.2-3.8 [facility] Comment on above: Performed By: #### U RTPCR #### [facility] [address] [place] [address] Dr. Dwight Waters Lymphocytes/100 WBC (Bld) 29.8 % Normal 20.5-60.0 [facility] Comment on above: Performed By: #### U RTPCR #### [facility] [address] [place] [address] Dr. Dwight Waters MANUAL DIFF REQ NO Normal [facility] Comment on above: Performed By: #### U RTPCR #### [facility] [address] [place] [address] Dr. Dwight Waters MCH (RBC) [Entitic mass] 28.2 pg Normal 25.9-34.0 [facility] Comment on above: Performed By: #### U RTPCR #### [facility] [address] [place] [address] Dr. Dwight Waters MCHC (RBC) [Mass/Vol] 31.7 g/dL Normal 29.9-35.2 [facility] Comment on above: Performed By: #### U RTPCR #### [facility] [address] [place] [address] Dr. Dwight Waters MCV (RBC) [Entitic vol] 89.1 fL Normal 80.0-94.0 [facility] Comment on above: Performed By: #### U RTPCR #### [facility] [address] [place] [address] Dr. Dwight Waters MONO # 0.6 103/ul Normal 0.3-0.8 [facility] Comment on above: Performed By: #### U RTPCR #### [facility] [address] [place] [address] Dr. Dwight Waters Monocytes/100 WBC (Bld) 9.0 % Normal 1.7-12.0 [facility] Comment on above: Performed By: #### U RTPCR #### [facility] [address] [place] [address] Dr. Dwight Waters NEUT # 3.6 103/ul Normal 1.4-6.5 [facility] Comment on above: Performed By: #### U RTPCR #### [facility] [address] [place] [address] Dr. Dwight Waters Neutrophils/100 WBC (Bld) 57.7 % Normal 43.0-75.0 [facility] Comment on above: Performed By: #### U RTPCR #### [facility] [address] [address] [address] Dwight Waters Platelet mean volume (Bld) [Entitic vol] 9.9 fL Normal 9.5-13.5 [facility] Comment on above: Performed By: #### U RTPCR #### [facility] [address] [address] [address] Dwight Waters PLT 249 103/ul Normal 150-450 [facility] Comment on above: Performed By: #### U RTPCR #### [facility] [address] [place] [address] Dr. Dwight Waters RBC 5.42 106/ul Normal 4.70-6.10 [facility] Comment on above: Performed By: #### U RTPCR #### [facility] [address] [place] [address] Dr. Dwight Waters WBC 6.3 103/ul Normal 4.0-11.0 [facility] Comment on above: Performed By: #### U RTPCR #### [facility] [address] [place] [address] Dr. Dwight Waters ER URINE PROFILEon 2 Bilirubin Ql (U) Unable to perform te sting due to color interference. Abnormal NEGATIVE [facility] Comment on above: Performed By: #### U RTPCR #### [facility] [address] [place] [address] Dr. Dwight Waters Clarity (U) TURBID Abnormal CLEAR [facility] Comment on above: Performed By: #### U RTPCR #### [facility] [address] [place] [address] Dr. Dwight Waters Color (U) RED Abnormal YELLOW [facility] Comment on above: Performed By: #### U RTPCR #### [facility] [address] [place] [address] Dr. Dwight Waters ERUAHD A micrscopic examina tion will be performed if indicated. Normal [facility] Comment on above: Performed By: #### U RTPCR #### [facility] [address] [place] [address] Dr. Dwight Waters Glucose Ql (U) Unable to perform te sting due to color interference. Abnormal NEGATIVE [facility] Comment on above: Performed By: #### U RTPCR #### [facility] [address] [place] [address] Dr. Dwight Waters Hemoglobin Ql (U) Unable to perform te sting due to color interference. Abnormal NEGATIVE [facility] Comment on above: Performed By: #### U RTPCR #### [facility] [address] [place] [address] Dr. Dwight Waters Ketones Ql (U) Unable to perform te sting due to color interference. Abnormal NEGATIVE [facility] Comment on above: Performed By: #### U RTPCR #### [facility] [address] [place] [address] Dr. Dwight Waters LEUKOCYTES Unable to perform te sting due to color interference. Abnormal NEGATIVE [facility] Comment on above: Performed By: #### U RTPCR #### [facility] [address] [place] [address] Dr. Dwight Waters Nitrite Ql (U) Unable to perform te sting due to color interference. Abnormal NEGATIVE [facility] Comment on above: Performed By: #### U RTPCR #### [facility] [address] [place] [address] Dr. Dwight Waters pH (U) 6.5 [pH] Normal 5-9 [facility] Comment on above: Performed By: #### U RTPCR #### [facility] [address] [place] [address] Dr. Dwight Waters SPEC GRAVITY 1.020 Normal 1.005-<=1.02 5 [facility] Comment on above: Performed By: #### U RTPCR #### [facility] [address] [place] [address] Dr. Dwight Waters UA PROTEIN Unable to perform te sting due to color interference. Normal NEGATIVE/ TRACE [facility] [facility] Comment on above: Performed By: #### U RTPCR #### [facility] [address] [place] [address] Dr. Dwight Waters UR MICRO IND INDICATED Normal [facility] Comment on above: Performed By: #### U RTPCR #### [facility] [address] [address] [address] Dwight Waters UROBILINOGEN Unable to perform te sting due to color interference. Normal 0.2 - 1.0 [facility] Comment on above: Performed By: #### U RTPCR #### [facility] [address] [place] [address] Dr. Dwight Waters PROF 14(COMP METB)on 022 Albumin [Mass/Vol] 3.8 g/dL Normal 3.4-5.0 [facility] Comment on above: Performed By: #### C MP #### [facility] [address] [place] [address] Dr. Dwight Waters Albumin/Globulin [Mass ratio] 1.1 {ratio} Normal [facility] Comment on above: Performed By: #### C MP #### [facility] [address] [place] [address] Dr. Dwight Waters ALP [Catalytic activity/Vol] 106 U/L Normal 46-116 [facility] Comment on above: Performed By: #### C MP #### [facility] [address] [place] [address] Dr. Dwight Waters ALT [Catalytic activity/Vol] 30 U/L Normal 16-63 [facility] Comment on above: Performed By: #### C MP #### [facility] [address] [place] [address] Dr. Dwight Waters Anion gap [Moles/Vol] 11.7 mmol/L Normal [facility] Comment on above: Performed By: #### C MP #### [facility] [address] [place] [address] Dr. Dwight Waters AST [Catalytic activity/Vol] 16 U/L Normal 15-37 [facility] Comment on above: Performed By: #### C MP #### [facility] [address] [place] [address] Dr. Dwight Waters Bilirubin [Mass/Vol] 0.6 mg/dL Normal 0.2-1.0 [facility] Comment on above: Performed By: #### C MP #### [facility] [address] [address] [address] Dwight Waters Calcium [Mass/Vol] 9.1 mg/dL Normal 8.5-10.1 [facility] Comment on above: Performed By: #### C MP #### [facility] [address] [address] [address] Dwight Waters CO2 [Moles/Vol] 27.4 mmol/L Normal 21.0-32.0 [facility] Comment on above: Performed By: #### C MP #### [facility] [address] [address] [address] Dwight Waters Creatinine [Mass/Vol] 1.18 mg/dL Normal 0.70-1.30 [facility] Comment on above: Performed By: #### C MP #### [facility] [address] [address] [address] Dwight Waters EGFR-AF UGANDAN >60 Normal >=60 [facility] Comment on above: Performed By: #### C MP #### [facility] [address] [address] [address] Dwight Waters EGFR-NON AF UGANDAN >60 Normal >=60 [facility] Comment on above: Performed By: #### C MP #### [facility] [address] [address] [address] Dwight Waters Globulin (S) [Mass/Vol] 3.6 g/dL Normal [facility] Comment on above: Performed By: #### C MP #### [facility] [address] [address] [address] Dwight Waters Glucose [Mass/Vol] 192 mg/dL Critically high 74-106 T [facility] Comment on above: Performed By: #### C MP #### [facility] [address] [place] [address] Dr. Dwight Waters Potassium [Moles/Vol] 4.1 mmol/L Normal 3.5-5.1 [facility] Comment on above: Performed By: #### C MP #### [facility] [address] [address] [address] Dwight Waters Protein [Mass/Vol] 7.4 g/dL Normal 6.4-8.2 [facility] Comment on above: Performed By: #### C MP #### [facility] [address] [address] [address] Dwight Waters Sodium [Moles/Vol] 142 mmol/L Normal 136-145 [facility] Comment on above: Performed By: #### C MP #### [facility] [address] [place] [address] Dr. Dwight Waters Urea nitrogen [Mass/Vol] 17.0 mg/dL Normal 7.0-18.0 [facility] Comment on above: Performed By: #### C MP #### [facility] [address] [place] [address] Dr. Dwight Waters Urea nitrogen/Creatinine [Mass ratio] 14.4 mg/mg Normal [facility] Comment on above: Performed By: #### C MP #### [facility] [address] [place] [address] Dr. Dwight Waters URINE MICROSCOPIC ONLYon BACTERIA NONE SEEN Normal NONE SEEN [facility] Comment on above: Performed By: #### U RTPCR #### [facility] [address] [place] [address] Dr. Dwight Waters Bacteria identified Cx Nom (U) NOT INDICATED Normal [facility] Comment on above: Performed By: #### U RTPCR #### [facility] [address] [place] [address] Dr. Dwight Waters CAST NONE SEEN Normal NONE SEEN [facility] Comment on above: Performed By: #### U RTPCR #### [facility] [address] [place] [address] Dr. Dwight Waters Crystals LM Nom (Urine sed) NONE SEEN Normal NONE SEEN [facility] Comment on above: Performed By: #### U RTPCR #### [facility] [address] [place] [address] Dr. Dwight Waters Epithelial cells LM Ql (Urine sed) RARE Normal NONE SEEN /RARE [facility] Comment on above: Performed By: #### U RTPCR #### [facility] [address] [address] [address] Dwight Waters MUCOUS NONE SEEN Normal NONE SEEN [facility] Comment on above: Performed By: #### U RTPCR #### [facility] [address] [address] [address] Dwight Waters RBC (U) [#/Vol] /uL Abnormal 0-2 [facility] Comment on above: Performed By: #### U RTPCR #### [facility] [address] [address] [address] Dwight Waters WBC NONE SEEN Normal NONE SEEN [facility] Comment on above: Performed By: #### U RTPCR #### [facility] [address] [address] [address] Dwight Waters K (Potassium)on 01-06-2020 Potassium [Moles/Vol] 4.4 mmol/L Normal 3.7-5.3 [facility] Comment on above: Performed By: #### K #### [facility] [address] [place] [address] Briquette Maker: Kehinde Woodward MD Potassiumon 01-06-2020 Potassium [Moles/Vol] 4.4 mmol/L 3.7 - 5.3 mmol/L [facility] Work Phone: Hemoglobin and Hematocrit, B loodon 10-24-2019 Hematocrit (Bld) [Volume fraction] 23.6 % Low 40.7 - 50.3 % [place] Hemoglobin (Bld) [Mass/Vol] 7.3 g/dL Low 13 - 17 g/dL [place] Interpretation and review of laboratory results Abnormal [place] Hgb/Hcton 10-24-2019 Hematocrit (Bld) [Volume fraction] 23.6 % Low 40.7-50.3 [facility] Comment on above: Performed By: #### H H #### [facility] [address] [place] [address] Briquette Maker: Kehinde Woodward MD Hemoglobin (Bld) [Mass/Vol] 7.3 g/dL Low 13.0-17.0 [facility] Comment on above: Performed By: #### H H #### [facility] [address] [place] [address] Briquette Maker: Kehinde Woodward MD Hemoglobinon 08-27-2019 Hemoglobin (Bld) [Mass/Vol] 7.5 g/dL Low 13.0-17.0 [facility] Comment on above: Performed By: #### H GB #### [facility] [address] [place] [address] Briquette Maker: Kehinde Woodward MD Hemoglobin (Bld) [Mass/Vol] 7.5 g/dL Low 13 - 17 g/dL [place] Interpretation and review of laboratory results Abnormal [place] Hemoglobinon 08-08-2019 Hemoglobin (Bld) [Mass/Vol] 8.3 g/dL Low 13.0-17.0 [facility] Comment on above: Performed By: #### H GB #### [facility] [address] [place] [address] Briquette Maker: Kehinde Woodward MD Hemoglobin (Bld) [Mass/Vol] 8.3 g/dL Low 13 - 17 g/dL [place] Interpretation and review of laboratory results Abnormal [place] Hemoglobinon 08-04-2019 Hemoglobin (Bld) [Mass/Vol] 8.0 g/dL Low 13.0-17.0 [facility] Comment on above: Performed By: #### H GB #### [facility] [address] [place] [address] Briquette Maker: Kehinde Woodward MD Hemoglobin A1Con 08-03-2019 HbA1c (Bld) [Mass fraction] % Low 4.8-5.9 [facility] Comment on above: Result Comment: The ADA and AACC recommend providing the estimated average glucose result to permit better patient understanding of their HBA1c result. Performed By: #### G LYHGB #### [facility] [address] [place] [address] Briquette Maker: Kehinde Woodward MD Glucose [Mass/Vol] mg/dL mg/dL [place] Comment on above: The ADA and AACC rec ommend providing the estimated average glucose result to permit better patient understanding of their HBA1c result. HbA1c (Bld) [Mass fraction] % Low 4.8 - 5.9 % [place] Interpretation and review of laboratory results Abnormal [place] Hemoglobinon 08-01-2019 Hemoglobin (Bld) [Mass/Vol] 8.1 g/dL Low 13.0-17.0 [facility] Comment on above: Performed By: #### H GB #### [address] [place] [address] Briquette Maker: Kehinde Woodward MD Hemoglobin (Bld) [Mass/Vol] 8.1 g/dL Low 13 - 17 g/dL [place] Interpretation and review of laboratory results Abnormal [place] Hgb/Hcton 06-10-2019 Hematocrit (Bld) [Volume fraction] 24.3 % Low 40.7-50.3 [facility] Comment on above: Performed By: #### H H #### [address] [place] [address] Briquette Maker: Kehinde Woodward MD Hemoglobin (Bld) [Mass/Vol] 7.4 g/dL Low 13.0-17.0 [facility] Comment on above: Performed By: #### H H #### [facility] [address] [place] [address] Briquette Maker: Kehinde Woodward MD Hemoglobinon 06-01-2019 Hemoglobin (Bld) [Mass/Vol] 7.2 g/dL Low 13.0-17.0 [facility] Comment on above: Performed By: #### H GB #### [facility] [address] [place] [address] Briquette Maker: Kehinde Woodward MD K (Potassium)on 01-14-2019 Potassium [Moles/Vol] 3.6 mmol/L Low 3.7-5.3 [facility] Comment on above: Performed By: #### K #### [facility] [address] [place] [address] Briquette Maker: Kehinde Woodward MD Otheron 10-19-2018 IMPRESSION: 1. [...] characteristics determined by Toxicology Laboratory at [facility]. It has not been cleared [...] Amitriptyline(50), Amphetamine(250), Atenolol(500), Barbiturates(1000), Benzoylecgonine(50), Buprenorphine(50), Bupropion(25), Caffeine(08984), Chlordiazepoxide(50), Chlorpheniramine(100), Chlorpromazine(50), Citalopram(100), Clonazepam(200), Cocaine(25), Codeine(200), [...] LOUIS, QASIM TOXICOLOGY SCREEN URINE - UD [facility] 10-12-2018 Drugs identified Screen Nom (U) For Medical Purposes Only, Non-forensic, screen results are presumptive. No confirmatory testing will follow. Invalid Interpretation Shira LOUIS, QASIM Comment on above: This Liquid Chromato graphy Mass Spectrometry (LC/MS/MS) test was developed and its performance characteristics determined by Toxicology Laboratory at [facility]. It has not been cleared [...] Amitriptyline(50), Amphetamine(250), Atenolol(500), Barbiturates(200), Benzoylecgonine(50), Buprenorphine(500), Bupropion(25), Caffeine(71226), Cannabinoids(THC)(50), Chlordiazepoxide(50), Chlorpheniramine(100), Chlorpromazine(50), Citalopram(100), Clonazepam(200), Cocaine(25), [...] index (BMI) [Ratio] 29.43 kg/m2 Rebeca Gutierrez CHEMICAL PROCESS ANALYST-KRAFT DIGESTER OPERATOR Work Phone: [facility] 06-17-2024 08:37-0400 Body temperature 97.39 [degF] Rebeca Gutierrez CHEMICAL PROCESS ANALYST-KRAFT DIGESTER OPERATOR Work Phone: [facility] 06-17-2024 08:37-0400 Body weight 85.23 kg Rebeca Gutierrez CHEMICAL PROCESS ANALYST-KRAFT DIGESTER OPERATOR Work Phone: [facility] 06-17-2024 08:37-0400 Diastolic blood pressure 75 mm[Hg] Rebeca Gutierrez CHEMICAL PROCESS ANALYST-KRAFT DIGESTER OPERATOR Work Phone: [facility] 06-17-2024 08:37-0400 Heart rate 53 /min Rebeca Gutierrez CHEMICAL PROCESS ANALYST-KRAFT DIGESTER OPERATOR Work Phone: [facility] 06-17-2024 08:37-0400 Systolic blood pressure 143 mm[Hg] Rebeca Gutierrez CHEMICAL PROCESS ANALYST-KRAFT DIGESTER OPERATOR Work Phone: [facility] 06-17-2024 08:36-0400 Body mass index (BMI) [Ratio] 29.43 kg/m2 Daisha Sobotka DO Work Phone: [facility] 06-17-2024 08:36-0400 Body temperature 97.39 [degF] Daisha Sobotka DO Work Phone: [facility] 06-17-2024 08:36-0400 Body weight 85.23 kg Daisha Sobotka DO Work Phone: [facility] 06-17-2024 08:36-0400 Diastolic blood pressure 75 mm[Hg] Daisha Max DO Work Phone: [facility] 06-17-2024 08:36-0400 Heart rate 53 /min Daisha Gamboaotka DO Work Phone: [facility] 06-17-2024 08:36-0400 Systolic blood pressure 143 mm[Hg] Daisha Mtzka DO Work Phone: [facility] 02-26-2024 09:07-0400 Diastolic blood pressure 56 mm[Hg] Candie Almaguer MD Work Phone: [facility] 02-26-2024 09:07-0400 Heart rate 65 /min Candie Almaguer MD Work Phone: [facility] 02-26-2024 09:07-0400 Systolic blood pressure 113 mm[Hg] Candie Almaguer MD Work Phone: [facility] 02-26-2024 09:06-0400 Body height 170.2 cm Candie Almaguer MD Work Phone: [facility] 02-26-2024 09:06-0400 Body mass index (BMI) [Ratio] 28.9 kg/m2 Candie Almaguer MD Work Phone: [facility] 02-26-2024 09:06-0400 Body weight 83.69 kg Candie Almaguer MD Work Phone: [facility] 02-26-2024 09:06-0400 Respiratory rate 20 /min Candie Almaguer MD Work Phone: [facility] 02-26-2024 09:06-0400 SaO2% (BldA) [Mass fraction] 97 % Candie Almaguer MD Work Phone: [facility] 01-23-2024 15:04-0500 Body temperature 97.9 [degF] Kevin Sage MD Work Phone: [facility] 01-23-2024 15:04-0500 Diastolic blood pressure 67 mm[Hg] Kevin Sage MD Work Phone: [facility] 01-23-2024 15:04-0500 Heart rate 51 /min Kevin Sage MD Work Phone: [facility] 01-23-2024 15:04-0500 Respiratory rate 16 /min Kevin Sage MD Work Phone: [facility] 01-23-2024 15:04-0500 SaO2% (BldA) [Mass fraction] 94 % Kevin Sage MD Work Phone: [facility] 01-23-2024 15:04-0500 Systolic blood pressure 151 mm[Hg] Kevin Sage MD Work Phone: [facility] 01-23-2024 10:46-0500 Body mass index (BMI) [Ratio] 30.94 kg/m2 Kevin Sage MD Work Phone: [facility] 01-23-2024 10:46-0500 Body weight 89.6 kg Kevin Sage MD Work Phone: [facility] 01-18-2024 11:21-0500 Body height 170.2 cm Kevin Sage MD Work Phone: [facility] 01-06-2024 09:04-0500 Body height 170.2 cm Zuly Bruno NP Work Phone: [facility] 01-06-2024 09:04-0500 Body mass index (BMI) [Ratio] 32.42 kg/m2 Zuly Bruno NP Work Phone: [facility] 01-06-2024 09:04-0500 Body temperature 97.81 [degF] Zulytray Torresholz ANILINE PRESS WORKER Work Phone: [facility] 01-06-2024 09:04-0500 Body weight 93.89 kg Zulytray Torresholz ANILINE PRESS WORKER Work Phone: [facility] 01-06-2024 09:04-0500 Diastolic blood pressure 70 mm[Hg] Zuly Brianholz ANILINE PRESS WORKER Work Phone: [facility] 01-06-2024 09:04-0500 Heart rate 95 /min Zuly Lexiehholz ANILINE PRESS WORKER Work Phone: [facility] 01-06-2024 09:04-0500 Respiratory rate 17 /min Zuly Brianholz ANILINE PRESS WORKER Work Phone: [facility] 01-06-2024 09:04-0500 SaO2% (BldA) [Mass fraction] 99 % Zuly Brianholz ANILINE PRESS WORKER Work Phone: [facility] 01-06-2024 09:04-0500 Systolic blood pressure 138 mm[Hg] Zuly Lexiehholz ANILINE PRESS WORKER Work Phone: [facility] 09-11-2023 10:31-0400 Body temperature 97.81 [degF] Steve Yeison MBBS Work Phone: [facility] 09-11-2023 10:31-0400 Diastolic blood pressure 66 mm[Hg] Steve Yeison MBBS Work Phone: [facility] 09-11-2023 10:31-0400 Heart rate 70 /min Steve Yeison MBBS Work Phone: [facility] 09-11-2023 10:31-0400 Respiratory rate 20 /min Steve Yeison MBBS Work Phone: [facility] 09-11-2023 10:31-0400 SaO2% (BldA) [Mass fraction] 91 % Steve Yeison MBBS Work Phone: [facility] 09-11-2023 10:31-0400 Systolic blood pressure 129 mm[Hg] Steve Yeison MBBS Work Phone: [facility] 09-10-2023 15:50-0400 Body mass index (BMI) [Ratio] 31.99 kg/m2 Steve Yeison MBBS Work Phone: [facility] 09-10-2023 15:50-0400 Body weight 92.67 kg Steve Yeison MBBS Work Phone: [facility] 09-02-2023 07:32-0400 Body height 170.2 cm Steve Yeison MBBS Work Phone: [facility] 08-28-2023 13:33-0400 Body height 170.2 cm Steve Yeison MBBS Work Phone: [facility] 08-28-2023 13:33-0400 Body mass index (BMI) [Ratio] 32.12 kg/m2 Steve Yeison MBBS Work Phone: [facility] 08-28-2023 13:33-0400 Body temperature 97.3 [degF] Steve Yeison MBBS Work Phone: [facility] 08-28-2023 13:33-0400 Body weight 93.03 kg Steve Yeison MBBS Work Phone: [facility] 08-28-2023 13:33-0400 Diastolic blood pressure 41 mm[Hg] Steve Yeison MBBS Work Phone: [facility] 08-28-2023 13:33-0400 Heart rate 116 /min Steve Yeison MBBS Work Phone: [facility] 08-28-2023 13:33-0400 Systolic blood pressure 106 mm[Hg] Steve Yeison MBBS Work Phone: [facility] 06-12-2023 14:50-0400 Body mass index (BMI) [Ratio] 33.8 kg/m2 Rebeca Gutierrez CHEMICAL PROCESS ANALYST-KRAFT DIGESTER OPERATOR Work Phone: [facility] 06-12-2023 14:50-0400 Body temperature 97.3 [degF] Rebeca Gutierrez CHEMICAL PROCESS ANALYST-KRAFT DIGESTER OPERATOR Work Phone: [facility] 06-12-2023 14:50-0400 Body weight 97.89 kg Rebeca Gutierrez CHEMICAL PROCESS ANALYST-KRAFT DIGESTER OPERATOR Work Phone: [facility] 06-12-2023 14:50-0400 Diastolic blood pressure 77 mm[Hg] Rebeca Gutierrez CHEMICAL PROCESS ANALYST-KRAFT DIGESTER OPERATOR Work Phone: [facility] 06-12-2023 14:50-0400 Heart rate 76 /min Rebeca Gutierrez CHEMICAL PROCESS ANALYST-KRAFT DIGESTER OPERATOR Work Phone: [facility] 06-12-2023 14:50-0400 Systolic blood pressure 146 mm[Hg] Rebeca Gutierrez CHEMICAL PROCESS ANALYST-KRAFT DIGESTER OPERATOR Work Phone: [facility] 01-16-2023 08:57-0500 Body height 170.2 cm [facility] Work Phone: [facility] 01-16-2023 08:57-0500 Body mass index (BMI) [Ratio] 33.66 kg/m2 [facility] Work Phone: [facility] 01-16-2023 08:57-0500 Body temperature 97.3 [degF] [facility] Work Phone: [facility] 01-16-2023 08:57-0500 Body weight 97.48 kg [facility] Work Phone: [facility] 01-16-2023 08:57-0500 Diastolic blood pressure 75 mm[Hg] [facility] Work Phone: [facility] 01-16-2023 08:57-0500 Heart rate 76 /min [facility] Work Phone: [facility] 01-16-2023 08:57-0500 Systolic blood pressure 142 mm[Hg] [facility] Work Phone: [facility] 09-10-2022 09:38-0400 Body height 170.2 cm Ryan Yepez MD Work Phone: [facility] 09-10-2022 09:38-0400 Body mass index (BMI) [Ratio] 33.67 kg/m2 Ryan Yepez MD Work Phone: [facility] 09-10-2022 09:38-0400 Body weight 97.52 kg Ryan Yepez MD Work Phone: [facility] 09-10-2022 09:38-0400 Diastolic blood pressure 83 mm[Hg] Ryan Yepez MD Work Phone: [facility] 09-10-2022 09:38-0400 Heart rate 64 /min Ryan Yepez MD Work Phone: [facility] 09-10-2022 09:38-0400 SaO2% (BldA) [Mass fraction] 96 % Ryan Yepez MD Work Phone: [facility] 09-10-2022 09:38-0400 Systolic blood pressure 129 mm[Hg] Ryan Yepez MD Work Phone: [facility] 07-07-2022 13:48-0400 Diastolic blood pressure 76 mm[Hg] Ryan Yepez MD Work Phone: [facility] 07-07-2022 13:48-0400 Heart rate 82 /min Ryan Yepez MD Work Phone: [facility] 07-07-2022 13:48-0400 SaO2% (BldA) [Mass fraction] 96 % Ryan Yepez MD Work Phone: [facility] 07-07-2022 13:48-0400 Systolic blood pressure 141 mm[Hg] Ryan Yepez MD Work Phone: [facility] 06-27-2022 13:32-0400 Body height 170.2 cm Ryan Yepez MD Work Phone: [phone](051)887-690043 [address] 06-27-2022 13:32-0400 Body mass index (BMI) [Ratio] 34.24 kg/m2 Ryan Yepez MD Work Phone: [phone](718)[phone] [address] 06-27-2022 13:32-0400 Body temperature 98.6 [degF] Ryan Yepez MD Work Phone: [facility] 06-27-2022 13:32-0400 Body weight 99.16 kg Ryan Yepez MD Work Phone: 4(548)[phone] [address] 06-27-2022 13:32-0400 Diastolic blood pressure 78 mm[Hg] Ryan Yepez MD Work Phone: [facility] 06-27-2022 13:32-0400 Heart rate 77 /min Ryan Yepez MD Work Phone: [facility] 06-27-2022 13:32-0400 SaO2% (BldA) [Mass fraction] 95 % Ryan Yepez MD Work Phone: [facility] 06-27-2022 13:32-0400 Systolic blood pressure 121 mm[Hg] Ryan Yepez MD Work Phone: [facility] 06-27-2022 10:52-0400 Body height 170.2 cm Rena Brewster RN [facility] 06-27-2022 10:52-0400 Body mass index (BMI) [Ratio] 34.46 kg/m2 Rena Brewster RN [facility] 06-27-2022 10:52-0400 Body temperature 98.2 [degF] Rena Brewster RN [facility] 06-27-2022 10:52-0400 Body weight 99.79 kg Rena Brewster RN [facility] 06-27-2022 10:52-0400 Diastolic blood pressure 73 mm[Hg] Rena Brewster RN [facility] 06-27-2022 10:52-0400 Heart rate 78 /min Rena Brewster RN [facility] 06-27-2022 10:52-0400 Respiratory rate 20 /min Rena Brewster RN [facility] 06-27-2022 10:52-0400 SaO2% (BldA) [Mass fraction] 97 % Rena Brewster RN [facility] 06-27-2022 10:52-0400 Systolic blood pressure 135 mm[Hg] Rena Brewster RN [facility] 06-12-2022 14:23-0400 Body mass index (BMI) [Ratio] 34.59 kg/m2 Steve Latham MBBS Work Phone: [facility] 06-12-2022 14:23-0400 Body temperature 97 [degF] Steve Farrari MBBS Work Phone: [facility] 06-12-2022 14:23-0400 Body weight 100.2 kg Steve Farrari MBBS Work Phone: [facility] 06-12-2022 14:23-0400 Diastolic blood pressure 66 mm[Hg] Steve Farrari MBBS Work Phone: [facility] 06-12-2022 14:23-0400 Heart rate 63 /min Steve LEIGH Work Phone: [facility] 06-12-2022 14:23-0400 Systolic blood pressure 133 mm[Hg] Stevemassiel Farrarmatthew LEIGH Work Phone: [facility] 05-20-2022 15:21-0400 Body temperature 97.9 [degF] Gian Villatoro MD Work Phone: [facility] 05-20-2022 15:21-0400 Diastolic blood pressure 64 mm[Hg] Gian Villatoro MD Work Phone: [facility] 05-20-2022 15:21-0400 Heart rate 55 /min Gian Villatoro MD Work Phone: [facility] 05-20-2022 15:21-0400 Respiratory rate 15 /min Gian Villatoro MD Work Phone: [facility] 05-20-2022 15:21-0400 SaO2% (BldA) [Mass fraction] 95 % Gian Villatoro MD Work Phone: [facility] 05-20-2022 15:21-0400 Systolic blood pressure 145 mm[Hg] Gian Villatoro MD Work Phone: [facility] 05-19-2022 12:15-0400 Body mass index (BMI) [Ratio] 35.87 kg/m2 Gian Villatoro MD Work Phone: [facility] 05-19-2022 12:15-0400 Body weight 103.92 kg Gian Villatoro MD Work Phone: [facility] Comment on above: standing scale 05-16-2022 16:19-0400 Body height 170.2 cm Gian Villatoro MD Work Phone: [phone] 10-19-2018 08:44-0500 BMI (Body Mass Index) 26.58 kg/m2 [facility] Work Phone: 10-19-2018 08:44-0500 BP Diastolic 76 mm[Hg] [facility] Work Phone: 10-19-2018 08:44-0500 BP Systolic 144 mm[Hg] [facility] Work Phone: 10-19-2018 08:44-0500 Height 172.7 cm [facility] Work Phone: 10-19-2018 08:44-0500 Pulse (Heart Rate) 92 /min [facility] Work Phone: 10-19-2018 08:44-0500 Pulse Oximetry 99 % [facility] Work Phone: 10-19-2018 08:44-0500 Respiratory Rate 16 /min [facility] Work Phone: 10-19-2018 08:44-0500 Weight 79.29 kg [facility] Work Phone: 10-12-2018 09:50-0500 BMI (Body Mass Index) 27.24 kg/m2 [facility] Work Phone: 10-12-2018 09:50-0500 Body Temperature 98.6 [degF] [facility] Work Phone: 10-12-2018 09:50-0500 BP Diastolic 80 mm[Hg] [facility] Work Phone: 10-12-2018 09:50-0500 BP Systolic 157 mm[Hg] [facility] Work Phone: 10-12-2018 09:50-0500 Height 169.5 cm [facility] Work Phone: 10-12-2018 09:50-0500 Pulse (Heart Rate) 94 /min [facility] Work Phone: 10-12-2018 09:50-0500 Weight 78.29 kg [facility] Work Phone: Encounters Encounter Date Encounter Type Care Provider Facility Start: 06-23-2024 End: 06-23-2024 ambulatory Meka Munoz [facility] Start: 06-23-2024 End: 06-23-2024 Patient encounter procedure Meka Munoz [facility] Start: 06-17-2024 End: 06-17-2024 Office outpatient visit 25 minutes Daisha Max DO Work Phone: [facility] Comment on above: Liver lesion (Primar y Dx); Liver transplant recipient; High risk medication use; Therapeutic drug monitoring; 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 Start: 05-26-2024 End: 05-26-2024 ambulatory Evan Bolton RPh,PharmD [facility] Start: 05-26-2024 End: 05-26-2024 Patient encounter procedure Evan Bolton RPh,PharmD [facility] Start: 05-13-2024 End: 05-13-2024 ambulatory [facility] Start: 04-18-2024 End: 04-18-2024 ambulatory ZULY BRUNO Not Available Start: 03-24-2024 End: 03-24-2024 Patient encounter procedure Angel Carpio RPh,PharmD Pharmacy Outpatient [facility] Start: 03-24-2024 End: 03-24-2024 ambulatory Angel Carpio [facility],PharmD [facility] Start: 03-22-2024 End: 03-22-2024 ambulatory JOHNNA BRINK Not Available Start: 03-17-2024 End: 03-17-2024 ambulatory JOHNNA BRINK Not Available Start: 03-14-2024 End: 03-14-2024 ambulatory FIDELINA SANCHEZ Not Available Start: 03-10-2024 End: 03-10-2024 ambulatory JOHNNA BRINK Not Available Start: 03-08-2024 End: 03-08-2024 ambulatory JOHNNA BRINK Not Available Start: 03-03-2024 End: 03-03-2024 ambulatory JOHNNA BRINK Not Available Start: 03-02-2024 End: 03-02-2024 ambulatory Meka Munoz [facility] Start: 03-02-2024 End: 03-02-2024 Patient encounter procedure Meka Munoz [facility] Start: 03-01-2024 ambulatory ZULY AICHHOLZ Facility: [facility] Start: 03-01-2024 End: 03-01-2024 ambulatory JOHNNA BRINK Not Available Start: 02-26-2024 ambulatory ZULY AICHHOLZ Facility: [facility] Start: 02-26-2024 End: 02-26-2024 Office outpatient new 30 minutes Candie Almaguer MD Work Phone: [facility] Clerk [facility] Comment on above: Heart failure, diast olic, acute (Primary Dx) Start: 02-26-2024 ambulatory ZULY AICHHOLZ Facility: [facility] Start: 02-25-2024 End: 02-25-2024 ambulatory FIDELINA DANIEL Not Available Start: 02-23-2024 End: 02-23-2024 ambulatory PALMA PALACIOS Not Available Start: 02-11-2024 End: 02-11-2024 ambulatory ZULY AICHHOLZ Not Available Start: 01-16-2024 Encounter for other preprocedural examination KELVIN PACHECO [facility] Start: 01-16-2024 End: 01-23-2024 Evaluation and management of inpatient Kevin Sage MD Work Phone: [email or web address] Comment on above: Pleural effusion on right Start: 01-16-2024 End: 01-23-2024 Patient encounter status Kevin Sage MD Work Phone: [facility] Work Phone: Start: 01-12-2024 End: 01-12-2024 [...] Office outpatient visit 25 minutes Zuly Marissaz [employer] WORK[employer] Work Phone: [facility] Comment on above: Bilateral lower extr emity edema (Primary Dx); 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); Atherosclerosis 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); Obesity (BMI 30-39.9); DARLENE (obstructive sleep apnea); Tremor; Immunocompromised ([facility]); Primary hypertension ([facility]); Shortness of breath Start: 01-01-2024 Clinisync Result Encounter Generic External Data Provider [facility] External Department Unsolicited Start: 01-01-2024 Clinisync Result Encounter Generic External Data Provider [facility] External Department Unsolicited Start: 11-03-2023 End: 11-03-2023 ambulatory ZULY AICHHOLZ Not Available Start: 10-06-2023 ambulatory Angel Fete RPh,PharmD Pharmacy Outpatient [facility] Start: 10-06-2023 Patient encounter procedure Angel Fete RPh,PharmD [facility] Start: 09-29-2023 ambulatory ZULY AICHHOLZ Facility: [facility] Start: 09-23-2023 ambulatory ZULY BRUNO Facility: [facility] Start: 09-15-2023 [facility] Start: 08-28-2023 End: 09-11-2023 Evaluation and management of inpatient Steve Latham MBBS Work Phone: [email or web address] Start: 08-28-2023 End: 08-28-2023 Office outpatient visit 25 minutes Steve Latham MBBS Work Phone: [facility] Trans[facility] Comment on above: Immunosuppressed sta tus (Primary Dx); Kidney replaced by transplant; Aftercare following organ transplant; High risk medication use; Other general symptoms and signs; Abnormal blood chemistry; Hypertension secondary to other renal disorders Start: 08-28-2023 ambulatory STEVE LATHAM Facility:[facility] Start: 08-19-2023 ambulatory Meka rueda [facility] Start: 08-19-2023 Patient encounter procedure Meka Munoz [facility] Start: 06-12-2023 End: 06-12-2023 Office outpatient visit 25 minutes Steve Latham MBBS Work Phone: [facility] Trans[facility] Comment on above: 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) Start: 06-10-2023 ambulatory Maren Bar RPh,PharmD [facility] Start: 06-10-2023 Patient encounter procedure Maren Dipika RPh,PharmD Pharmacy Outpatient [facility] Start: 04-28-2023 End: 04-29-[address] DOCTOR EVANS Facility: Start: 03-12-2023 ambulatory Angel Madsene RPh,PharmD Pharmacy Outpatient [facility] Start: 03-12-2023 Patient encounter procedure Angel Madsene RPh,PharmD [facility] Start: 03-10-2023 ambulatory Angel Madsene RPh,PharmD [facility] Start: 03-10-2023 Patient encounter procedure Angel Madsene RPh,PharmD [facility] Start: 03-02-2023 End: 03-03-[address] DOCTOR EVANS Facility:[facility] Start: 01-16-2023 End: 01-16-2023 Office outpatient visit 25 minutes Daisha Max DO Work Phone: [facility] Comment on above: Abnormal blood chemi [...] MD Work Phone: [facility] Comment on above: BPH with obstruction /lower urinary tract symptoms (Primary Dx); Encounter for screening for malignant neoplasm of prostate Start: 08-28-2022 End: 08-29-2022 ambulatory ROB BRUNO Facility:[facility] Start: 08-14-2022 End: 08-15-[address] DOCTOR EVANS Facility:[facility] Start: 07-07-2022 End: 07-07-2022 Patient encounter procedure Ryan Yepez MD Work Phone: [facility] Comment on above: Other hydronephrosis (Primary Dx); [...] MD Work Phone: [facility] Comment on above: Other hydronephrosis (Primary Dx) Start: 06-27-2022 End: 06-27-2022 Subsequent hospital visit by physician Ryan Yepez MD Work Phone: Department of Radiology Comment on above: Arrived Start: 06-27-2022 End: 06-27-2022 Patient encounter procedure Enzo Jenna Heart DO Work Phone: [facility] Comment on above: Attention to nephros pilo (Primary Dx) Start: 06-18-2022 End: 06-18-2022 ambulatory KE LUND . Facility:[facility] Start: 06-12-2022 End: 06-12-2022 Office outpatient visit 25 minutes Steve LEIGH Work Phone: [facility] Comment on above: Immunosuppressed sta tus [...] Facility:[facility] Start: 03-14-2022 ambulatory Comfort Rivera [facility] Work Phone: Pharmacy Outpatient [facility] Start: 03-14-2022 Patient encounter procedure Comfort Rivera [facility] Work Phone: Pharmacy Outpatient [facility] Start: 06-14-2021 End: 06-14-2021 ambulatory Comfort Rivera [facility] Work Phone: [facility] Start: 06-14-2021 Patient encounter procedure Comfort Rivera [facility] Work Phone: [facility] Start: 01-20-2020 End: 01-27-2020 Patient encounter procedure PEPE CASE Facility:[facility] Start: 01-06-2020 End: 01-07-2020 Patient encounter procedure RENA GUDINO [facility] Start: 01-06-2020 End: 01-06-2020 Subsequent hospital visit by physician [facility] Start: 10-24-2019 End: 10-25-2019 Patient encounter procedure TANA CAMPA [facility] Start: 10-24-2019 End: 10-24-2019 Subsequent hospital visit by physician [facility] Start: 08-27-2019 End: 08-28-2019 [facility] Start: 08-27-2019 End: 08-27-2019 Subsequent hospital visit by physician [facility] Start: 08-08-2019 End: 08-09-2019 [facility] Start: 08-08-2019 End: 08-08-2019 Subsequent hospital visit by physician [facility] Start: 08-03-2019 End: 08-04-2019 [facility] Start: 08-03-2019 End: 08-03-2019 Subsequent hospital visit by physician [facility] Start: 08-01-2019 End: 08-02-2019 [facility] Start: 08-01-2019 End: 08-01-2019 Subsequent hospital visit by physician [facility] Start: 06-10-2019 End: 06-11-2019 Patient encounter procedure RENA GUDINO [facility] Start: 06-01-2019 End: 06-02-2019 Patient encounter procedure RENA GUDINO [facility] Start: 01-14-2019 End: 01-15-2019 Patient encounter procedure RENA GUDINO [facility] Start: 11-17-2018 End: 11-17-2018 Patient encounter procedure Fidelina [facility] [place] [facility] Comment on above: Social Work Follow-u p Start: 10-19-2018 End: 10-19-2018 Patient encounter Autumn [facility] Pre Transplant Office Comment on above: Cirrhosis of liver w ithout ascites, unspecified hepatic cirrhosis type (Primary Dx) Start: 10-19-2018 End: 10-19-2018 Office outpatient visit 25 minutes Christin Magalie Elizabeth Work Phone: Division of Gastroenterology and Hepatology [facility] Comment on above: Alcoholic cirrhosis of liver without ascites (Primary Dx); Pre-transplant evaluation for liver transplant; Hepatic encephalopathy Start: 10-13-2018 End: 10-13-2018 Patient encounter procedure Autumn [facility] Pre Transplant Office Comment on above: Reschedule Outside Medical Allan rds Request Start: 10-12-2018 End: 10-12-2018 Patient encounter procedure Sophie Cary [facility] Pre Transplant Office Comment on above: Alcoholic cirrhosis, unspecified whether ascites present (Primary Dx); Pre-transplant evaluation for liver transplant Start: 10-12-2018 End: 10-12-2018 Office outpatient new 60 minutes Alfredito Restrepo Work Phone: [facility] Pre Transplant Office Comment on above: Alcoholic cirrhosis, unspecified whether ascites present; ESRD (end stage renal disease) on dialysis; Pre-transplant evaluation for liver transplant Start: 10-06-2018 End: 10-06-2018 Patient encounter procedure Yovani Orr Work Phone: Department of Radiology Comment on above: Canceled (Insurance Company Redirected Pt) Start: 10-05-2018 Patient encounter status Comfort Rivera [facility] Work Phone: [facility] Procedures Date Procedure Procedure Detail Performing [...] above: Performed By: #### X M ####[facility] ([facility])[address] [place] [address] Start: 01-22-2024 Assay of magnesium Just in [...] Start: 01-20-2024 ITRACONAZOLE LEVEL Jennifer norbert K Dorian [facility] Work Phone: Start: 01-20-2024 Oscillating [...] Iadna nos quantifica tion each organism Fidelina K Dorian [facility] Work Phone: Start: 01-18-2024 Echocardiography [...] AURIS SCREEN BY PCR Carol Ann Capps CHEMICAL PROCESS ANALYST-GIANT TIRE REPAIRER Work Phone: Start: 01-08-2024 ALL CBC WITH [...] amplified probe tq each organism Evan A Cindy WHIPPLE Work Phone: Start: 08-31-2023 End: 08-31-2023 Iaad [...] AURIS SCREEN BY PCR Carol Ann Capps CHEMICAL PROCESS ANALYST-GIANT TIRE REPAIRER Work Phone: Start: 08-28-2023 CBC AND ELECTRONIC [...] above: Performed By: #### C MP #### [facility] [address] [place] [address] Dr. Dwight Waters Start: 07-07-2022 Rmvl nfros [...] recipient S/P liver trans plant Comfort Miguel [facility] Work Phone: Start: 04-08-2020 H/O: liver recipient Liver tra nsplant recipient Comfort Rivera [facility] Work Phone: Start: 01-06-2020 [...] ceased-donor kidney transplant recipient Comfort Rivera [facility] Work Phone: Start: 06-10-2019 HEMOGLOBIN AND HEMAT OCRIT, BLOOD ROB KASMANI Start: 06-01-2019 Blood count hemoglobin ROB KASMANI Start: 03-22-2019 Lipid 1996 panel - S fabricio or Plasma Comfort Rivera [facility] Work Phone: Start: 01-14-2019 [...] 10-12-2018 End: 10-12-2018 Antibody rubeola Yovani Mejias Clerts!annie Work Phone: Start: 10-12-2018 End: 10-12-2018 Antibody varicella-zoster Yovani Orr Work Phone: Start: 10-12-2018 End: 10-12-2018 Assay of ethanol Yovani Orr Work Phone: Start: 10-12-2018 End: 10-12-2018 Assay of ferritin Yovani Orr Work Phone: Start: 10-12-2018 End: 10-12-2018 Assay of iron Yovani Mejias [employer]annie Work Phone: Start: 10-12-2018 End: 10-12-2018 Assay [...] 10-12-2018 Drug screening cannabinoids natural Yovani Mejias Clerts[employer]annie Work Phone: Start: 10-12-2018 End: 10-12-2018 Hepatitis [...] 10-12-2018 End: 10-12-2018 PSA screening Yovani Mejias [employer] Work Phone: Start: 10-12-2018 End: 10-12-2018 Thromboplastin [...] Kidn ey replaced by transplant Steve Latham MBAPOORVA Work Phone: History of renal transplant Kidn ey replaced by transplant Steve MORENOBS Work Phone: History of renal transplant Dece ased-donor kidney transplant recipient Steve MORENOBS Work Phone: History of renal transplant Kidn ey replaced by transplant Rebeca Gutierrez CHEMICAL PROCESS ANALYST-KRAFT DIGESTER OPERATOR Work Phone: Plan of Treatment Date Care Activity Detail Author Start: 09-20-2029 Screening for malignant neoplasm of colon [facility] Start: 07-04-2025 Potassium [Moles/volume] in Serum or Plasma POTASSIUM [facility] Start: 06-20-2025 Potassium [Moles/volume] in Serum or Plasma POTASSIUM [facility] Start: 06-16-2025 End: 06-16-2025 Patient encounter procedure [facility] Start: 06-13-2025 Potassium [Moles/volume] in Serum or Plasma POTASSIUM [facility] Start: 05-23-2025 Potassium [Moles/volume] in Serum or Plasma POTASSIUM [facility] Start: 03-28-2025 Potassium [Moles/volume] in Serum or Plasma POTASSIUM [facility] Start: 03-21-2025 Potassium [Moles/volume] in Serum or Plasma POTASSIUM [facility] Start: 02-28-2025 Potassium [Moles/volume] in Serum or Plasma POTASSIUM [facility] Start: 01-23-2025 Potassium [Moles/volume] in Serum or Plasma POTASSIUM [facility] Start: 09-07-2024 End: 09-07-2024 Telemedicine consultation with patient 09/07/2024 3:00 PM EDT Telemedicine Infectious Diseases Care [facility] [address] [facility] [address] [place] [id number] Evan White DO [address] [place], [place] [id number] Infectious [facility] Start: 08-31-2024 Screening for malignant neoplasm of lung [facility] Start: 07-31-2024 Influenza vaccination INFLUENZA VACCINE (#1) [facility] Start: 06-17-2024 End: 06-17-2024 ambulatory [facility] Start: 06-17-2024 End: 06-17-2024 Patient encounter procedure [facility] Start: 03-22-2024 Fasting lipid profile LIPID SCREENING [facility] Start: 03-22-2024 Lipid panel [facility] Start: 02-26-2024 End: 02-26-2024 Patient encounter procedure 02/26/2024 9:30 AM EDT Office Visit Store Clerk [facility] Kehinde Dalila [facility] [address] [place] [address] Candie Almaguer MD [address] [place] [address] Store Clerk Center Kehinde Conner [facility] Start: 02-11-2024 End: 02-11-2024 Patient encounter procedure 02/11/2024 10:30 AM EDT Office Visit [facility] [address] [place] [address] Zuly Bruno NP [address] [place] [address] [facility] Start: 02-09-2024 End: 02-09-2024 Telemedicine consultation with patient 02/09/2024 3:30 PM EDT Telemedicine Infectious Diseases Care [facility] [address] [facility] [address] [place] [phone] Hakeem Alamo MD [address] [facility] Start: 01-15-2024 End: 01-15-2024 ambulatory [facility] Start: 01-15-2024 End: 01-15-2024 Patient encounter procedure [facility] Start: 01-06-2024 End: 01-06-2026 Echocardiogram 2D complete Echocardiogram 2D complete Echocardiography Routine DARLENE (obstructive sleep apnea) Primary hypertension (CMS/HCC) Bilateral lower extremity edema Shortness of breath Expected: 01/06/2024 (Approximate), Expires: 01/06/2026 [facility] Work Phone: Comment on above: Expected: 01/06/2024 (Approximate), Expi res: 01/06/2026 Start: 01-06-2024 End: 01-06-2024 Patient encounter procedure 01/06/2024 9:00 AM EST Office Visit [facility] [address] [place] [address] Zuly Bruno NP [address] [place] [address] [facility] Start: 12-08-2023 End: 09-07-2024 CT Chest WO contrast [facility] Work Phone: Start: 12-01-2023 COVID-19 VACCINE (2 - Moderna risk series) COVID-19 VACCINE (2 - Moderna risk series) [facility] Start: 09-23-2023 End: 09-23-[address] [facility] Start: 09-23-2023 End: 09-23-2023 Telemedicine consultation with patient 09/23/2023 4:00 PM EDT Telemedicine Infectious Diseases Care [facility] [address] [place] [address] Hakeem Alamo MD [address] [place] [address] [facility] Start: 09-15-2023 End: 09-10-2024 ITRACONAZOLE LEVEL [facility] Start: 08-25-2023 End: 08-25-2024 ALLOSCREEN RECIPIENT (POST TX PRA) ALLOSCREEN RECIPIENT (POST TX PRA) Lab Routine Kidney replaced by transplant Aftercare following organ transplant Immunosuppressed status High risk medication use Other general symptoms and signs Abnormal blood chemistry Expected: 08/25/2023, Expires: 08/25/2024 [facility] Comment on above: Expected: 08/25/2023, Expires: Start: 07-31-2023 Influenza vaccination [facility] Start: 06-12-2023 End: 06-12-2023 Patient encounter procedure 06/12/2023 Office Visit Transplant Surgery Steve Latham MBBS [address] [place] [id number] [facility] Start: 03-11-2023 End: 03-11-2023 Telemedicine consultation with patient 03/11/2023 Telemedicine Urology Ryan Yepez MD [address] [facility] [address] [place] [address] [facility] Start: 01-16-2023 End: 01-16-2023 Patient encounter procedure 01/16/2023 Office Visit Transplant Surgery [facility] Start: 10-31-2022 End: 10-31-2022 Patient encounter procedure 10/31/2022 Office Visit Transplant Surgery Steve Latham, LU [address] [place] [address] [facility] Start: 09-10-2022 End: 09-10-2023 PSA screening PSA, SCREENING Lab Routine BPH with obstruction/lower urinary tract symptoms Encounter for screening for malignant neoplasm of prostate Expected: 09/10/2022 (Approximate), Expires: 09/10/2023 [facility] Comment on above: Expected: 09/10/2022 (Approximate), Expi res: 09/10/2023 Start: 08-11-2022 End: 08-11-2022 Patient encounter procedure 08/11/2022 Office Visit Urology Ryan Yepez MD [address] [facility] [address] [place] [address] [facility] Start: 07-31-2022 Influenza vaccination [facility] Start: 07-07-2022 End: 07-07-2022 Patient encounter procedure 07/07/2022 Office Visit Ryan Webster MD [address] [facility] [address] [place] [address] [facility] Start: 07-07-2022 End: 07-07-2023 FLUORO IMAGING FOR UROLOGY [facility] Comment on above: Expected: 07/07/2022, Expires: 3 1 Occurrences starti ng 07/07/2022 until 07/07/2022 Start: 06-27-2022 End: 06-27-2022 Patient encounter procedure 06/27/2022 Office Visit Urology Ryan Yepez MD [address] [facility] [address] [place] [address] [facility] Start: 06-27-2022 End: 06-27-2023 Basic metabolic 2000 panel - Serum or Plasma BASIC METABOLIC PANEL Lab Routine Other hydronephrosis Expected: 06/27/2022, Expires: 06/27/2023 [facility] Comment on above: Expected: 06/27/2022, Expires: Start: 06-27-2022 End: 06-27-2022 Patient encounter procedure 06/27/2022 Appointment Computerized Tomography Scan Ryan Yepez MD [address] [facility] [address] [place] [id number] Department of Radiology Start: 06-15-2022 End: 05-16-2023 CT Abdomen and Pelvis WO contrast CT ABDOMEN/PELVIS WITHOUT CONTRAST Imaging Routine FAYE (acute kidney injury) Expected: 06/15/2022 (Approximate), Expires: 05/16/2023 [facility] Work Phone: Comment on above: Expected: 06/15/2022 (Approximate), Expi res: 05/16/2023 Start: 06-12-2022 End: 06-12-2022 Patient encounter procedure 06/12/2022 Office Visit Transplant Surgery Steve Latham, LU [address] [place] [id number] [facility] Start: 06-11-2022 End: 06-11-2023 BK VIRUS DNA QN, PCR, PLASMA BK VIRUS DNA QN, PCR, PLASMA Lab Routine Kidney replaced by transplant Liver replaced by transplant Abnormal blood chemistry Expected: 06/11/2022, Expires: 06/11/2023 [facility] Comment on above: Expected: 06/11/2022, Expires: Start: 06-04-2022 End: 06-04-2022 Patient encounter procedure 06/04/2022 Office Visit Interventional Radiology [facility] Start: 10-18-2021 End: 10-18-2021 Patient encounter procedure 10/18/2021 Office Visit Transplant Surgery Steve Latham, LU [address] [place] [address] [facility] Start: 07-31-2021 Influenza vaccination INFLUENZA VACCINE (#1) [facility] Start: 07-26-2021 End: 07-26-2021 Patient encounter procedure 07/26/2021 Office Visit Transplant Surgery [facility] Start: 2021 Prostate specific antigen measurement [facility] Start: 2021 Screening for malignant neoplasm of lung LUNG CANCER SCREENING [facility] Start: 2021 Zoster vaccine hzv live for subcutaneous use ZOSTER (SHINGLES) VACCINE (1 of 2) [facility] Start: 09-20-2020 Colonoscopy COLORECTAL CANCER SCREENING DISCUSSION [facility] Start: 09-20-2020 Screening for malignant neoplasm of colon [facility] Start: 07-31-2019 Influenza vaccination Flu vaccine (#1) [place] Start: 05-22-2019 Annual Wellness Visit (AWV) Annual Wellness Visit (AWV) [place] Start: 04-18-2019 End: 10-19-2019 Ultrasonography of abdomen US ABDOMEN RUQ/LIVER/GB Routine Cirrhosis of liver without ascites, unspecified hepatic cirrhosis type Expected: 04/18/2019 (Approximate), Expires: 10/19/2019 [facility] Work Phone: Comment on above: Expected: 04/18/2019 (Approximate), Expi res: 10/19/2019 Start: 01-25-2019 End: 01-25-2019 Ambulatory 01/25/2019 Office Visit Gastroenterology Christin Elizabeth, CHEMICAL PROCESS ANALYST-KRAFT DIGESTER OPERATOR [address] [place] [address] Division of Gastroenterology and Hepatology Gavin Start: 11-19-2018 End: 11-19-2018 Ambulatory 11/19/2018 Appointment Pulmonary Diagnostics [facility] Start: 11-19-2018 End: 11-19-2018 Ambulatory [facility] Start: 10-19-2018 End: 10-19-2018 Ambulatory Ultrasound Jakob [...] Start: 07-31-2018 Influenza vaccination INFLUENZA VACCINE (#1) [facility] Work Phone: Start: 2011 Fasting lipid profile LIPID SCREENING [facility] Work Phone: Start: 2011 Lipid screen Lipid screen [place] Start: 1990 DTaP/Tdap/Td vaccine (1 - Tdap) DTaP/Tdap/Td vaccine (1 - Tdap) [place] Start: 1990 Hepatitis B vaccination HEP B VACCINE (1 of 3 - 19+ 3-dose series) [facility] Start: 1990 Hepatitis B Vaccine (1 of 3 - Risk Recombivax 3-dose series) Hepatitis B Vaccine (1 of 3 - Risk Recombivax 3-dose series) [place] Start: 1990 Third diphtheria, tetanus and acellular pertussis (DTaP) vaccination [facility] Start: 1990 Zoster vaccine hzv live for subcutaneous use ZOSTER (SHINGLES) VACCINE (1 of 2) [facility] Start: 1990 [facility] Start: 1989 Tetanus vaccination TETANUS [facility] Start: 1986 HIV screen HIV screen [place] Start: 02-17-1984 HIV screening HIV SCREENING DISCUSSION [facility] Work Phone: Start: 1983 COVID-19 VACCINE (1) COVID-19 VACCINE (1) [facility] Start: 1982 DTaP/Tdap/Td vaccine (1 - Tdap) DTaP/Tdap/Td vaccine (1 - Tdap) [place] Start: 1977 Pneumococcal 0-64 years Vaccine (1 of 3 - PCV13) Pneumococcal 0-64 years Vaccine (1 of 3 - PCV13) [place] Start: 1977 PNEUMOCOCCAL VACCINE SERIES (1 - PCV) PNEUMOCOCCAL VACCINE SERIES (1 - PCV) [facility] Start: 1977 PNEUMOCOCCAL VACCINE SERIES (1 of 2 - PCV) PNEUMOCOCCAL VACCINE SERIES (1 of 2 - PCV) [facility] Start: 1977 [facility] Start: 02-17-1976 COVID-19 VACCINE (#1) COVID-19 VACCINE (#1) [facility] Start: 02-17-1976 [facility] Start: 1971 COVID-19 VACCINE (#1) COVID-19 VACCINE (#1) [facility] Start: 1971 Hepatitis B vaccination HEP B VACCINE (1 of 3 - 3-dose series) [facility] Start: 1971 Medicare Annual Wellness (AWV) Medicare Annual Wellness (AWV) [facility] Start: 1971 Screening for malignant neoplasm of colon [facility] Start: 1971 Tetanus vaccination [facility] BK VIRUS DNA QN, PCR , PLASMA BK VIRUS DNA QN, PCR, PLASMA Lab Routine Kidney replaced by transplant Liver replaced by transplant Abnormal blood chemistry 06/12/2022 3:38 PM EDT [facility] CALCULI, URINARY (KIDNEY STONE) CALCULI, URINARY (KIDNEY STONE) Fluids Routine 05/19/2022 8:16 AM EDT [facility] Work Phone: CANNABINOIDS, QUANT (URINE)THC CONFIRMATION CANNABINOIDS, QUANT (URINE)THC CONFIRMATION Routine Alcoholic cirrhosis, unspecified whether ascites present ESRD (end stage renal disease) on dialysis Pre-transplant evaluation for liver transplant 10/12/2018 12:57 PM [facility] Work Phone: End: 09-10-2024 CHEM 6 (LYTES, BUN CREA) [facility] EBV VCA IGG AB EBV VCA IGG AB R outine Alcoholic cirrhosis, unspecified whether ascites present ESRD (end stage renal disease) on dialysis Pre-transplant evaluation for liver transplant 10/12/2018 12:57 PM [facility] Work Phone: Fungus identified in Unspecified specimen by Culture [facility] HLA TYPING (SOLID ORGAN) HLA TYPING (SOLID ORGAN) Routine Alcoholic cirrhosis, unspecified whether ascites present ESRD (end stage renal disease) on dialysis Pre-transplant evaluation for liver transplant 10/12/2018 12:57 PM [facility] Work Phone: HSV 1 AND 2 IGG ANTIBODY HSV 1 AND 2 IGG ANTIBODY Routine Alcoholic cirrhosis, unspecified whether ascites present ESRD (end stage renal disease) on dialysis Pre-transplant evaluation for liver transplant 10/12/2018 12:57 PM [facility] Work Phone: MR Abdomen WO and W contrast IV MRI ABDOMEN WITH AND WITHOUT CONTRAST Imaging Routine Liver lesion Ordered: 06/17/2024 [facility] Comment on above: Ordered: 06/17/2024 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 specific culture [facility] PLACEMENT NEPHROSTOM Y CATHETER PERCUTANEOUS W/ IMAGE GUIDANCE PLACEMENT NEPHROSTOMY CATHETER PERCUTANEOUS W/ IMAGE GUIDANCE Imaging Routine Hydronephrosis due to obstruction of ureteral orifice FAYE (acute kidney injury) 05/17/2022 11:08 AM EDT [facility] MS POST VOID RESIDUAL MS POST VO ID RESIDUAL MS - OFFICE PERFORMED Routine BPH with obstruction/lower urinary tract symptoms Ordered: 09/10/2022 [facility] Comment on above: Ordered: 09/10/2022 PTH INTACT PTH INTACT Routi ne Alcoholic cirrhosis, unspecified whether ascites present ESRD (end stage renal disease) on dialysis Pre-transplant evaluation for liver transplant 10/12/2018 12:57 PM [facility] Work Phone: RUBEOLA IGG AB (IMMU NE STATUS) RUBEOLA IGG AB (IMMUNE STATUS) Routine Alcoholic cirrhosis, unspecified whether ascites present ESRD (end stage renal disease) on dialysis Pre-transplant evaluation for liver transplant 10/12/2018 12:57 PM [facility] Work Phone: End: 01-16-2024 Standard ECG ECG ECG Routine One Time for 1 Occurrences starting 01/16/2024 until 01/16/2024 [facility] Comment on above: One Time for 1 Occurrences starting 12/31 until 01/16/2024 End: 09-10-2024 TACROLIMUS LEVEL, TROUGH (PRE DRUG LEVEL) [facility] VARICELLA IGG AB (IM M STATUS) VARICELLA IGG AB (IMM STATUS) Routine Alcoholic cirrhosis, unspecified whether ascites present ESRD (end stage renal disease) on dialysis Pre-transplant evaluation for liver transplant 10/12/2018 12:57 PM [facility] Work Phone: Immunizations Immunization Date Immunization Notes Care Provider Zeeshan marquez 11-03-2023 influenza virus vacc ine, unspecified formulation Generic Provider [facility] 11-03-2023 Moderna SARS-CoV-2 50mcg/0.5mL Booster Generic Provider [facility] Payers Date Payer Category Payer Unknown [id number] 2019 Unknown [facility] [id number] 2019-Present [id number] 2018 Medicaid MEDICAID [facility] DEPT OF JOB xxxxxxxxxxxx 2018-Present [phone] [address] [place] [address] xxxxxxxxxxxx [id number] [id number] 2018 Medicaid MEDICAID MEDICAI D [id number] 2018-Present [address] [place] [address] [id number] .[id number] 2018 Medicaid [id number] [id number] .[id number] 2018 Medicare MEDICARE MEDICAR E PART A AND B xxxxxxxxxxx 2018-Present [phone] [address] [address] [place] [address] xxxxxxxxxxx [id number] .[id number] 2018 Medicare [id number] 2018 Medicare MEDICARE MEDICAR E A AND B [id number] 2018-Present [address] [place] [address] [id number] .[id number] 2018 Medicare [id number]. 1.13.172.2.7.3 .411105.315 1971 Unknown [id number] 2.16.840.1.837529.3.579.2.173 1971 Unknown [id number] 2.16.840.1.070082.3.579.2.173 1971 Unknown [id number] 2.16.840.1.149635.3.579.2.173 1971 Unknown [id number] 2.16.840.1.032470.3.579.2.173 1971 Unknown [id number] 2.16.840.1.140102.3.579.2.173 1971 Unknown [id number] 2.16.840.1.285427.3.579.2.173 1971 Unknown [id number] 2.16.840.1.910625.3.579.2.173 1971 Unknown [id number] 2.16.840.1.503766.3.579.2.173 1971 Unknown [id number] 2.16.840.1.548743.3.579.2.647 1971 Unknown [id number] 2.16.840.1.705051.3.579.2.593 1971 Unknown [id number] 2.16.840.1.201199.3.579.2.593 1971 Unknown [id number] 2.16.840.1.536204.3.579.2.593 1971 Unknown [id number] 2.16.840.1.959213.3.579.2.593 1971 Unknown [id number] 2.16.840.1.816136.3.579.2.593 1971 Unknown [id number] 2.16.840.1.705393.3.579.2.593 1971 Unknown [id number] 2.16.840.1.986578.3.579.2.593 1971 Unknown [id number] 2.16.840.1.964642.3.579.2.593 1971 Unknown [id number] 2.16.840.1.278208.3.579.2.593 1971 Unknown [id number] 2.16.840.1.761498.3.579.2.593 1971 Unknown [id number] 2.16.840.1.835486.3.579.2.593 1971 Unknown [id number] 2.16.840.1.225032.3.579.2.593 1971 Unknown [id number] 2.16.840.1.068983.3.579.2.593 1971 Unknown [id number] 2.16.840.1.960518.3.579.2.593 1971 Unknown [id number] 2.16.840.1.577997.3.579.2.593 1971 Unknown [id number] 2.16.840.1.528216.3.579.2.125 9 1971 Unknown [id number] 2.16.840.1.389118.3.579.2.125 9 1971 Unknown [id number] 2.16.840.1.807711.3.579.2.125 9 1971 Unknown [id number] 2.16.840.1.696758.3.579.2.125 9 1971 Unknown [id number] 2.16.840.1.536327.3.579.2.125 9 1971 Unknown [id number] 2.16.840.1.817523.3.579.2.125 9 1971 Unknown [id number] 2.16.840.1.784480.3.579.2.125 9 1971 Unknown [id number] 2.16.840.1.288972.3.579.2.125 9 1971 Unknown [id number] 2.16.840.1.977353.3.579.2.125 9 1971 Unknown [id number] 2.16.840.1.895544.3.579.2.125 9 1971 Unknown [id number] 2.16.840.1.875081.3.579.2.125 9 1971 Unknown [id number] 2.16.840.1.966379.3.579.2.125 9 1971 Unknown [id number] 2.16.840.1.402017.3.579.2.125 9 1971 Unknown [id number] 2.16.840.1.747475.3.579.2.125 9 1971 Unknown [id number] 2.16.840.1.402339.3.579.2.594 1971 Unknown [id number] 2.840.1.229487.3.579.2.594 1971 Unknown [id number] 2.16840.1.568969.3.579.2.594 1971 Unknown [id number] 2.840.1.530309.3.579.2.594 1971 Unknown [id number] 2.16840.1.343345.3.579.2.594 1971 Unknown [id number] 2.840.1.210503.3.579.2.594 1971 Unknown [id number] 2.16840.1.216899.3.579.2.594 1971 Unknown [id number] 2.16840.1.284545.3.579.2.594 1971 Unknown [id number] 2.16840.1.810305.3.579.2.594 1971 Unknown [id number] 2.840.1.738644.3.579.2.594 1971 Unknown [id number] 2.16840.1.311957.3.579.2.594 1971 Unknown [id number] 2.16.840.1.743921.3.579.2.594 1959 Medicaid [id number] 1959 Medicare [id number] Social History Date Type Detail Facility Start: 07-19-2018 End: 10-19-2018 Tobacco smoking status NHIS Former smoker [facility] Start: 07-19-1988 End: 05-14-2018 History of [...] Alcohol intake Current non-drinker of alcohol (finding) [place] Start: 06-22-2018 Alcohol Comment Hx of alcoholism [place] Start: 11-03-2018 End: 06-17-2024 Alcohol intake No [facility] Start: 07-19-2018 Tobacco use and exposure Former user [facility] Start: 09-06-2020 End: 06-17-2024 Alcohol intake Ex-drinker (finding) [facility] Start: 07-19-2018 Alcohol Comment stopped 05/14/2018 [facility] Start: 05-05-2022 End: 01-16-2023 Exposure to SARS-CoV-2 (event) Not sure [facility] Start: 07-07-2018 Gender identity Identifies as male gender (finding) [facility] Start: 01-16-2022 Sexual orientation Heterosexual (finding) [facility] Start: 11-03-2023 Tobacco use and exposure [...] Dates [id number] Start: 05-23-2020 [id number] Start: 04-12-2020 [id number] [facility] Start: 05-17-2022 Comment on above: Description: Implant time-out completed by intra-procedural staff including this RN, product development technician, and performing physician. The following was [...] Required: No Receive/Pickup Date: 06/29/2024 Shipping Address: [address] [place] [address] [address] Contact Info: Specialty ([place]) [phone] Jakob [phone] [facility] [phone] Raheem [phone] Bedside Delivery ([facility]) [phone] documented in this encounter [facility] 06-17-2024 History of Present illness Narrative -Referring Provider for today's consult: Self, Self -Primary Care Provider: Zuly Bruno History of Present Illness George Styles is a 54 y.o. male who presents to the [facility] Transplant Hepatology Clinic today [...] Surgeon: Jyoti Bryant MD, PhD; Location: [facility] MAIN OR PLACEMENT NEPHROSTOMY CATHETER PERCUTANEOUS W/ IMAGE GUIDANCE 05/17/2022 Surgeon: Enzo Heart DO; Location: [facility] INTERVENTIONAL RADIOLOGY (VIR) LIVER TRANSPLANT, ORTHOTOPIC N/A 04/12/2020 Laterality: N/A; Surgeon: LU Palma; Location: [facility] SAME DAY SURGERY MAIN OR KIDNEY TRANSPLANT W/O HABEMATOLEL NEPHRECTOMY N/A 04/12/2020 Laterality: N/A; Surgeon: LU Palma; Location: [facility] SAME DAY SURGERY MAIN OR [...] 0.2 06/13/2024 Explant Pathology Pathologic Diagnosis A. Kake liver, orthotopic liver transplant resection (1458 gram): [...] up in 1 year. Daisha Max DO Flight Teacher Gastroenterology, Hepatology and Nutrition [facility] Pager: [phone] Images from the original note were not included. 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 Surface Grinder: Anayeli Burt Date of Liver Transplant: 04/13/2020 (Kidney), 04/13/2020 (Liver) 4 years, 2 months post Liver/Kidney Transplant Primary Disease: Hypertensive Nephrosclerosis Transplant Auto Body Repair Technician: Erma Roe/ Daisha Max Primary Care physician: [...] LAB AND PHARMACY: None Specified [id number] [place] [address] - [address] [facility] [address] [facility] [address] [facility] [address] [place] [address] [address][id number] [place] [address] [address] [facility] [address] [place] [id number] [facility] Jakob [address], [address] [place] [address] ROS and SCREEN: Chest Pain: negative Cough: [...] year: no Do you follow with a Cosmetic Account Coordinator? yes Do you have a Primary Care [...] ADDRESS WITH PHYSICIAN: documented in this encounter [facility] 06-17-2024 Instructions Ashlee Fair RN - 06/17/2024 10:00 AM EDT - No medication changes from a liver standpoint - A MRI Abdomen has been ordered today. Please call central scheduling at [phone] to schedule or take paper copy to your local hospital - Return to clinic 06/16/2025 TRANSPLANT HEPATOLOGY 3, [facility] as scheduled documented in this encounter [facility] 06-17-2024 History of Present illness Narrative Images from the original note were not included. George Styles is a 54 y.o. 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 No longer follows with a local coating machine helper. History of Present Illness: Since George [...] included medical records and lab results. Rebeca Gtuierrez MSN, RN, CHEMICAL PROCESS ANALYST-BC, CCTN Certified Nurse Practitioner [facility] [address] [facility] [address] documented in this encounter [facility] 06-17-2024 Instructions JEANNA Hess - 06/17/2024 9:30 AM EDT Tacrolimus - increase to 0.2 mg packet three time per day; goal 3 to 5 ng/dL ; when the itraconazole stops 09/03/2024, reduce to 0.5 mg twice daily. Once your tacrolimus level is 3-5 ng/dL, you may reduce labs to every other week. documented in this encounter [facility] 05-26-2024 History of Present illness Narrative [facility]: Call Information: Date and Time of Contact: 05/26/2024 4:35 PM Method of Contact: By Phone Contact Type: Prescriptions Contactor: [facility] Contactee: Patient Contact Outcome: Left message and Follow-up Contact Info: Specialty ([place]) [phone] Jakob [phone] [facility] [phone] Raheem [phone] Bedside Delivery ([facility]) [phone] [facility]: Call Information: Date and Time of Contact: 05/30/2024 4:52 PM Method of Contact: By Phone Contact Type: Prescriptions Contactor: Patient Contactee: [facility] Shipping/Pickup: Medicare B Refill?: No Medication Name: Myco sod 360mg, Prograf 0.2mg Delivery Method: Ship Delivery Location: Home Signature Required: No Receive/Pickup Date: 06/06/2024 Shipping Address: [address] [place] [address] Contact Info: Specialty (Yanci) [phone] [facility] [phone] [facility] [phone] Raheem [phone] Bedside Delivery ([facility]) [phone] documented in this encounter [facility] 05-13-2024 Note MD Cardiology - [facility] Subjective George Styles is a [...] , Rfl: t (more content not included)... [facility] 03-24-2024 History of Present illness Narrative [facility]: Call Information: Date and Time of Contact: 03/24/2024 4:14 PM Method of Contact: By Phone Contact Type: Prescriptions Contactor: [facility] Contactee: Patient Contact Outcome: Left message Shipping/Pickup: Medication Name: Prograf 0.2mg pack Contact Info: Specialty ([place]) [phone] [facility] [phone] [facility] [phone] Raheem [phone] Bedside Delivery ([facility]) [phone] [facility]: Call Information: Date and Time of Contact: 03/28/2024 3:58 PM Method of Contact: By Phone Contact Type: Prescriptions Contactor: [facility] Contactee: Patient Contact Outcome: Left message and Call back later Shipping/Pickup: Medication Name: Mycophenolate, prograf Contact Info: Specialty (Yanci) [phone] [facility] [phone] [facility] [phone] Raheem [phone] Bedside Delivery ([facility]) [phone] [facility]: Call Information: Method of Contact: By Phone Contact Type: Prescriptions Contactor: Patient Contactee: [facility] Shipping/Pickup: Medicare B Refill?: No Medication Name: Mycopheolate 360mg and Prograf Delivery Method: Ship Delivery Location: Home Signature Required: No Receive/Pickup Date: 04/04/2024 Shipping Address: [address] [place] [address] [address] Contact Info: Specialty ([place]) [phone] [facility] [phone] [facility] [phone] Raheem [phone] Bedside Delivery ([facility]) [phone] documented in this encounter [facility] 03-24-2024 History of Present illness Narrative [facility]: Call Information: Date and Time of Contact: 03/24/2024 4:14 PM Method of Contact: By Phone Contact Type: Prescriptions Contactor: [facility] Contactee: Patient Contact Outcome: Left message Shipping/Pickup: Medication Name: Prograf 0.2mg pack Contact Info: Specialty (Yanci) [phone] [facility] [phone] [facility] [phone] Raheem [phone] Bedside Delivery ([facility]) [phone] [facility]RE[facility]: Call Information: Date and Time of Contact: 03/28/2024 3:58 PM Method of Contact: By Phone Contact Type: Prescriptions Contactor: [facility] Contactee: Patient Contact Outcome: Left message and Call back later Shipping/Pickup: Medication Name: Mycophenolate, prograf Contact Info: Specialty ([place]) [phone] [facility] [phone] [facility] [phone] Raheem [phone] Bedside Delivery ([facility]) [phone] [facility]: Call Information: Method of Contact: By Phone Contact Type: Prescriptions Contactor: Patient Contactee: [facility] Shipping/Pickup: Medicare B Refill?: No Medication Name: Mycopheolate 360mg and Prograf Delivery Method: Ship Delivery Location: Home Signature Required: No Receive/Pickup Date: 04/04/2024 Shipping Address: [address] [place] [address] [address] Contact Info: Specialty ([place]) [phone] [facility] [phone] [facility] [phone] Raheem [phone] Bedside Delivery ([facility]) [phone] [facility]: Pre-Verification/Specialty Assessment/Disease [...] Within normal limits Contact Info: Specialty (Yanci) [phone] Jakob [phone] [facility] [phone] Raheem [phone] Bedside Delivery ([facility]) [phone] documented in this encounter [facility] 03-02-2024 History of Present illness Narrative [...] del of broth Contact Info: Specialty (Yanci) [phone] [facility] [phone] [facility] [phone] Raheem [phone] Bedside Delivery ([facility]) [phone] [facility]REACH [facility]ANC[facility]: Call Information: Date and Time of Contact: 03/02/2024 3:49 PM Method of Contact: By Phone Contact Type: Prescriptions Contactor: [facility] Contactee: Patient Contact Outcome: Left message and Follow-up Shipping/Pickup: Medication Name: Myco 360mg and Prograf 0.2mg Contact Info: Specialty ([place]) [phone] [facility] [phone] [facility] [phone] Raheem [phone] Bedside Delivery ([facility]) [phone] [facility] RX OUTREACH ADVANCED: Call Information: Date and Time of Contact: 03/02/2024 4:08 PM Method of Contact: By Phone Contact Type: Prescriptions Contactor: [facility] Contactee: Patient Shipping/Pickup: Medicare B Refill?: No Medication Name: Myco 360 / prograf 0.2 Delivery Method: Ship Delivery Location: Home Signature Required: No Receive/Pickup Date: 03/03/2024 Shipping Address: [address] [place] [address] 179 Contact Info: Specialty ([place]) [phone] [facility] [phone] [facility] [phone] Raheem [phone] Bedside Delivery ([facility]) [phone] documented in this encounter [facility] 02-26-2024 History of Present illness Narrative [...] presents to the HF Clinic at the [facility] on 02/26/2024 for initial evaluation of [...] Surgeon: Jyoti Bryant MD, PhD; Location: [facility] MAIN OR PLACEMENT NEPHROSTOMY CATHETER PERCUTANEOUS W/ IMAGE GUIDANCE 05/17/2022 Surgeon: Enzo Heart DO; Location: [facility] INTERVENTIONAL RADIOLOGY (VIR) LIVER TRANSPLANT, ORTHOTOPIC N/A 04/12/2020 Laterality: N/A; Surgeon: LU Palma; Location: [facility] SAME DAY SURGERY MAIN OR KIDNEY TRANSPLANT W/O HABEMATOLEL NEPHRECTOMY N/A 04/12/2020 Laterality: N/A; Surgeon: LU Palma; Location: [facility] SAME DAY SURGERY MAIN OR [...] qd Antithrombotic: no Statin: no ICD: NA ORDER EXPEDITER: NA CV Test results: ECHOCARDIOGRAM 01/18/2024 (Final) [...] will be BP control. Candie Almaguer M.D. fueler Advanced Heart Failure Program Division of Cardiovascular Medicine [facility] [email or web address] [phone] fax [phone] documented in this encounter [facility] 02-26-2024 Instructions Marsha Mckeon RN - 02/26/2024 9:30 AM EDT The following instructions were given today: Labs today Follow up with Dr. Alamguer as needed. Your after visit summary (AVS) is viewable in [facility] My Chart. Call RN if you have cardiac questions/concerns M-F 8 to 4:30 ; office # [phone], option 6, then option 2. Guidelines for home management: 1. Continue to monitor weight first thing each morning. 2. Report to the CHF CLINIC ([phone]) any significant weight change. Remember that weight [...] to have labs/tests run outside of the [facility] and you do not hear from us 1-2 days after they are performed, you must call us to ensure we received the results. Office fax # [phone]. No news does not necessarily mean that your tests are normal, it could mean we did not get the results. For questions/updates: please provide your name with spelling, date of and question or update All calls are prioritized and responses researched, if possible, prior to calls being returned. Call Scheduling for any appointment/procedure verification or changes [phone], option 7 or [facility] Heart Schedulers at [phone], option 1. documented in this encounter [facility] 01-23-2024 Nurse Note Jakob wrap & [...] understanding on picking up needed prescriptions at [facility] pharmacy as listed on discharge summary. Patient denies any unanswered questions at this time. Patient has been discharged with all of their belongings, transported via wheelchair on oxygen to front entrance for brother to transport home on home oxygen supply. [facility] 01-23-2024 Miscellaneous Notes Jakob wrap & [...] understanding on picking up needed prescriptions at [facility] pharmacy as listed on discharge summary. Patient [...] Pain): verbalization of pain descriptors George Styles ([id number]) PRE OPERATIVE DIAGNOSIS High output congestive heart failure [I50.83] POST OPERATIVE DIAGNOSIS Post-Op Diagnosis Codes: * High output congestive heart failure [I50.83] PROCEDURE PERFORMED Procedure(s) (LRB): LIGATION ANGIOACCESS AVF (Left) Resection of large aneurysmic vein PRIMARY CLOSURE Yes INTRAOPERATIVE FINDINGS No significant abnormalities SURGEON Surgeons and Role: * Jyoti Bryant MD, PhD - Primary ANESTHESIOLOGIST Anesthesiologist: Celena Tiwari MD; Kehinde Gutierrez MD FRUIT RAISER: Raheem Jasso APRN-FRUIT RAISER Manager Of Case Assisting: Mini Khan MD SURGICAL STAFF Field Technical Support Consultant: Zoila Lawrence RN Relief Field Technical Support Consultant: Marimar Saravia RN Relief Scrub: Briseyda Self [...] patient breathing easily. Report received from president and cmo and report received from anesthesiology. Pt arrived [...] Axillary block. SURGEON(S): Jyoti Bryant MD, PHD DOBBY LOOM WEAVER: Mynor Fall MD ESTIMATED BLOOD LOSS: Minimal. [...] MD, PHD Jyoti Bryant MD, PHD ATTENDING AR/Constanza JOB: [id number] DOC: [id number] Patient has been asleep this shift. He [...] overnight coverage, Jasper Gastelum MD, via pager #[phone] Pt- George Styles. Sarah 1082. TM1. Was wondering if he can have his Melatonin order increased to 6mg. Per pt, he usually takes 8mg at home. -SAMI Duffy #[phone] Tati Charles RN Internal Medicine Daily Progress Note Patient: George Styles, 1970, [id number] Physician: Arelis Mera MD, PGY3, Pager #[phone], TM1 service Assessment/Plan: George Styles is a [...] 5mg CAD: non-obstructive CAD on [facility] 2018. - continue home aspirin [...] Mera MD Mr. Styles was admitted to [address] [place] [address]. On admission to [facility], from outside facility a dual RN initial assessment of skin condition was performed by Izzy Gutierrez RN and Leroy Singleton RN. Skin Assessment: Skin within defined limits:Yes Jose Score: 20 Wound Vision Barbecue Cook images obtained: No LDA Added: No Based [...] when available. documented in this encounter [facility] 01-23-2024 Nurse Note Home Oxygen Qualification [...] at 4L of oxygen is also required.) [facility] 01-23-2024 History of Present illness Narrative [...] Daily Kelvin Pacheco MD, MBBS professor of family medicine Transplant nephrology Surgery Post-Op Check Note George [...] monitor Leonel Harris DO General Surgery Pager [phone] CM went to bedside to talk with patient. Patient states he has home oxygen through [employer]. He uses 2.5 LNC around the clock. Patient states his brother will bring a tank for discharge. Anticipate patient will discharge tomorrow AM. Brother updated. Girish Oro RN, BSN Clinical Courier Delivery Driver Please note that I am a float case coordinator and may not cover the same service every day. Please call the main Case Management office at [phone] for up-to-date coverage. Verified patients identity using [...] questions answered to his satisfaction Leonel Harris, Associated attestation - Jyoti Bryant MD, PhD - 01/22/2024 10:54 AM EST I. Jyoti Bryant MD, PhD, have independently seen and examined the patient, reviewed the labs, discussed the patient with the fellow/resident and agree with the note. Images from the original note were not included. Internal Medicine Daily Progress Note Patient: George Styles, 1970, [id number] Physician: Yury Ozuna MD, PGY1, Pager #[phone], RQ8 service Assessment/Plan: George Styles is a 53 [...] 5mg CAD: non-obstructive CAD on [facility] 2018. - continue home aspirin [...] with the Nutrition plan outlined in the Envelope Machine Operator s note. DVT prophylaxis with lovenox Diet [...] (01/21 633) Na/K+/Phos/Mg/Ca: 141/3.9/--/1.5/-- (01/21 633) Bun/Creat/Cl/CO2/Glucose: 15/1.11/107/ (01/21 0633) Doppler US LUE AVF: Associated attestation - Kelvin Pacheco MD, MBBS - 01/21/2024 4:20 PM EST Patient seen and examined at bedside today during multidisciplinary rounds with medicine residents and pharmacy, charts reviewed, laboratory parameters reviewed. Agree with plan of care as mentioned in resident note. Kelvin Pacheco MD, MBBS professor of family medicine Transplant nephrology Patient seen and examined at [...] AC Kelvin Pacheco MD, LU professor of family medicine Transplant nephrology Images from the original note were not included. Internal Medicine Daily Progress Note Patient: George Styles, 1970, [id number] Physician: Yury Ozuna MD, PGY1, Pager #[phone], RC2 service Assessment/Plan: George Styles is a 53 [...] 5mg CAD: non-obstructive CAD on [facility] 2018. - continue home aspirin [...] with the Nutrition plan outlined in the Envelope Machine Operator s note. DVT prophylaxis with lovenox Diet [...] further questions. Name: Heidy Chatman Phone #: [phone] Date/Time: 01/19/2024 12:08 PM Time Spent: 15 minutes Associated attestation - Dorian Fidelina Ortiz [facility] - 01/19/2024 12:41 PM EST Department of Pharmacy Admission Medication Reconciliation Note Patient: George Styles Room/Bed: 1082/A I have reviewed the home medication list with the Filing Or Registry Clerk. The home medication list status is: complete. All changes to the home medication list have been updated in [facility]. Updated ARCHITECTURAL ENGINEER Med List: Prior to Admission Medications [...] questions. Name: Fidelina Alarcon Lydia Phone #: [phone] Date/Time: 01/19/2024 12:41 PM Internal Medicine Daily Progress Note Patient: George Styles, 1970, [id number] Physician: Yury Ozuna MD, PGY1, Pager #[phone], TM1 service Assessment/Plan: Acute Hypoxic Respiratory Insufficiency [...] 5mg CAD: non-obstructive CAD on [facility] 2018. - continue home aspirin [...] with the Nutrition plan outlined in the Envelope Machine Operator s note. DVT prophylaxis with lovenox Diet [...] Daily Kelvin Pacheco MD, MBBS professor of family medicine Transplant nephrology Internal Medicine Daily Progress Note Patient: George Styles, 1970, [id number] Physician: Yury Ozuna MD, PGY1, Pager #[phone], TM1 service Assessment/Plan: Updates: - continued diuresis [...] 5mg CAD: non-obstructive CAD on [facility] 2018. - continue home aspirin [...] with the Nutrition plan outlined in the Envelope Machine Operator s note. DVT prophylaxis with lovenox Diet [...] note. Kelvin Pacheco MD, LU professor of family medicine Transplant nephrology Pt known to music promoter from previous admissions. Provided emotional and spiritual support. Patient shared about: family support, medical course Structural Steel Painter provided: - Supportive presence - Active listening - Validation of feelings/emotions Patient encouraged to request a music promoter as needed. Chaplains are available in-house 24 hours a day and 7 days a week. For urgent matters in [facility], please page [phone]. If the request is not urgent, please enter a consult. Consults are responded to within 24 hours. Senior Staff Structural Steel Painter Angie Singh Mdiv, [facility] [place] [phone] [email or web address] On-call TYLOR: skiver operator Raheem: 22/06 Pager ,[facility], and Brock Hernandez Pager [phone] 01/18/24 1342 Clinical Encounter Type Visited With Patient Visit Type Introduction Pastoral Time Spent 15 min Referral Other (See Comment) (rounding) Spiritual Assessment Emotional Observation Coping well;Anxiety Hope Observation Specific hope focus Support Observation By Family Interventions Provided Active listening;Supportive presence Facilitated Verbalization of feelings;Identifying support system;Identifying Sources of spiritual well-being Explored Expectations;Treatment decisions Gas Worker Education Gas Worker Service Available Yes Educated Patient Outcomes Patient [...] interaction. Name: Fidelina Alarcon RPH Phone #: [phone] Date/Time: 01/18/2024 9:56 AM Discharge Planning Patient [...] Yes Name and Contact information: Gian Jensen ([phone]) Would you like to add additional adult [...] Is the patient from a facility or fdc?: No Patient lives with: Alone Living Environment: [...] oxygen?: Yes Oxygen Provider and Contact : [employer] Liter-Flow?: Order for oxygen use?: unknown at [...] patient on Anticoagulation? : No [id number] [place] [address] - [address] [facility] [address] [facility] [id number] Hand Edger Does the patient or telephone services sales representative express financial concerns? : No Employed?: Disabled Coping/Stress Concerns about patient s coping and stress?: No Concerns about patient s caregiver s coping and stress?: No Values and Beliefs Cultural or pentecostalism practices that may impact discharge planning and/or [...] Plan 1. Identified self and role as Courier Delivery Driver. 2. Confirmed and updated demographics and treatment team. 3. Courier Delivery Driver will continue to follow with medical team for any other additional discharge needs. Kasandra DON RN [facility] [phone] *Please note I am float CM and work Thursday and Thursday every other week. Please call [phone] for assist in my absence. Internal Medicine Daily Progress Note Patient: George Styles, 1970, [id number] Physician: Yury Ozuna MD, PGY1, Pager #[phone], TM1 service Assessment/Plan: Updates: - continue diuresis [...] 5mg CAD: non-obstructive CAD on [facility] 2018. - continue home aspirin [...] abdominal pain, flank pain, diarrhea. Objective: Vitals: 01/17/242 BP: 121/58 Pulse: 60 Resp: 16 Temp: [...] ordered 2D echo. Kevin Sage MD, FASN Flight Teacher of Clinical Medicine [facility] documented in this encounter [facility] 01-23-2024 Plan of care note Patient [...] Guideline (CPG) Outcome: Progressing Flowsheets (Taken 01/23/2024 0683) Related Risk Factors (Acute Pain): surgery Signs and Symptoms (Acute Pain): verbalization of pain descriptors [facility] 01-22-2024 Hospital Discharge instructions Arelis Mera [...] your doctor for further instructions. Please call [phone], Option 1 or [phone] to schedule your appointment with the Heart Failure Clinic. Arelis Mera MD - 01/22/2024 3:08 PM EST You can change your dressing 48 hours from the procedure The following attachments cannot be sent through Care Everywhere.Heart Failure: Avoiding Triggers ([place])Heart Failure: Limiting Sodium ([place])Pain and Pain Control ([facility]) ([place])documented in this encounter [facility] 01-22-2024 Surgery Postoperative evaluation and management note George Styles ([id number]) PRE OPERATIVE DIAGNOSIS High output congestive heart failure [I50.83] POST OPERATIVE DIAGNOSIS Post-Op Diagnosis Codes: * High output congestive heart failure [I50.83] PROCEDURE PERFORMED Procedure(s) (LRB): LIGATION ANGIOACCESS AVF (Left) Resection of large aneurysmic vein PRIMARY CLOSURE Yes INTRAOPERATIVE FINDINGS No significant abnormalities SURGEON Surgeons and Role: * Jyoti Bryant MD, PhD - Primary ANESTHESIOLOGIST Anesthesiologist: Celena Tiwari MD; Kehinde Gutierrez MD FRUIT RAISER: Raheem M Dando, CHEMICAL PROCESS ANALYST-FRUIT RAISER Manager Of Case Assisting: Mini Khan MD SURGICAL STAFF Field Technical Support Consultant: Zoila Lawrence RN Relief Field Technical Support Consultant: Marimar Saravia RN Relief Scrub: Briseyda Self Scrub Person: Cinda Mai RN Resident Assisting: Leonel Harris DO Fellow: Miki Mcgowan MD, MBBS COMPLICATIONS None ESTIMATED BLOOD LOSS Minimal SPECIMENS No specimen sent * No specimens in log * Jyoti Bryant MD, PhD January 22, 2024 1:34 PM [facility] Work Phone: 01-22-2024 Nurse Note Arrived to PACU assisted by anesthesiology. Connected to monitors. Turned side to side, OR linens removed, repositioned. Airway patent, patient breathing easily. Report received from president and cmo and report received from anesthesiology. Pt arrived awake. VSS. Sats slightly low. Pulm rehab used. Sats currently 3lpm @ 93%. Pt states he uses CPAP nocturnally. A&Ox4. Nerve block left arm, elevated. [facility] 01-22-2024 Surgery Postoperative evaluation and management [...] Axillary block. SURGEON(S): Jyoti Bryant MD, PHD DOBBY LOOM WEAVER: Mynor Fall MD ESTIMATED BLOOD LOSS: Minimal. [...] Jyoti Bryant MD, PHD ATTENDING SHANNON/Constanza JOB: [id number] DOC: [id number] [facility] 01-22-2024 Plan of care note Patient [...] 194 Plan Of Care Reviewed With: patient [facility] 01-20-2024 Consult note Associated Order (s): IP CONSULT TO SURGERY - TRANSPLANT (RENAL) Images from the original note were not included. TRANSPLANT SURGERY CONSULT NOTE: Consult: 01/20/2024, 4:03 PM Behavioral Health Case Manager: Starla Morris MD Reason for Consult: Requesting Dr Carson Bryant for AVF revision/closure given new onset high output heart failure George Styles is a 53 y.o. male CURRENT HOSPITALIZATION LOS: Admit Date: 01/16/2024 [facility] Hospital LOS: 4 days George Styles [...] 05/17/2022 Surgeon: Enzo Heart DO; Location: [facility] INTERVENTIONAL RADIOLOGY (VIR) LIVER TRANSPLANT, ORTHOTOPIC N/A 04/12/2020 Laterality: N/A; Surgeon: LU Palma; Location: [facility] SAME DAY SURGERY MAIN OR KIDNEY TRANSPLANT W/O HABEMATOLEL NEPHRECTOMY N/A 04/12/2020 Laterality: N/A; Surgeon: LU [...] Studies: Labs-CBC: WBC/Hgb/Hct/Plts: 3.79/12.5/38.9/166 (01/20 611) Labs-Chem 7([facility]): Bun/Creat/Cl/CO2/Glucose: 15/1.12/105/28/88 (01/20 611) Na/K+/Phos/Mg/Ca: 141/3.8/--/1.6/-- (01/20 [...] seen and staffed with Dr. Mcgowan fellow senior energy consultant Thank you, Starla Morris MD Associated attestation - Jyoti Bryant MD, PhD - 01/22/2024 10:54 AM EST Beata Bryatn MD, PhD, have independently seen and examined the patient, reviewed the labs, discussed the patient with the fellow/resident and agree with the note. [facility] Work Phone: 01-20-2024 Consult note Associated Order (s): IP CONSULT TO SURGERY - TRANSPLANT (RENAL) Images from the original note were not included. TRANSPLANT SURGERY CONSULT NOTE: Consult: 01/20/2024, 4:03 PM Behavioral Health Case Manager: Starla Morris MD Reason for Consult: Requesting Dr Carson Bryant for AVF revision/closure given new onset high output heart failure George Styles is a 53 y.o. male CURRENT HOSPITALIZATION LOS: Admit Date: 01/16/2024 [facility] Hospital LOS: 4 days George Styles [...] 05/17/2022 Surgeon: Enzo Heart DO; Location: [facility] INTERVENTIONAL RADIOLOGY (VIR) LIVER TRANSPLANT, ORTHOTOPIC N/A 04/12/2020 Laterality: N/A; Surgeon: LU Palma; Location: [facility] SAME DAY SURGERY MAIN OR KIDNEY TRANSPLANT W/O HABEMATOLEL NEPHRECTOMY N/A 04/12/2020 Laterality: N/A; Surgeon: LU Palma; Location: [facility] SAME DAY SURGERY MAIN OR [...] Access 04/09/20 0139 HEMODIALYSIS USE ONLY;Hemodialysis 04/09/20 013 -- 1381 [...] Studies: Labs-CBC: WBC/Hgb/Hct/Plts: 3.79/12.5/38.9/166 (01/20 611) Labs-Chem 7([facility]): Bun/Creat/Cl/CO2/Glucose: 15/1.12/105/28/88 (01/20 611) Na/K+/Phos/Mg/Ca: 141/3.8/--/1.6/-- (01/20 [...] seen and staffed with Dr. Mcgowan fellow senior energy consultant Thank you, Starla Morris MD Associated [...] DAY SURGERY MAIN OR KIDNEY TRANSPLANT W/O HABEMATOLEL NEPHRECTOMY N/A 04/12/2020 Laterality: N/A; Surgeon: LU [...] (order for outpatient) Please SecureChat or Call ([phone]) for any questions. Await attending attestation for final recommendations. Hank Noel MD Division of Gastroenterology, Hepatology, and Nutrition Clinical Fellow, PGY-5 Pager: [phone] For urgent/stat calls or consults 5pm to 7am, please page the on-call GI fellow on QSvitStylea. [facility]--> Internal Medicine--> Gastroenterology, Hepatology, & Nutrition--> 1st Call Fel Alysia For urgent/stat calls or consults 7am to 5pm during the weekend, please page the on-call GI fellow on QGenda. [facility]--> Internal Medicine--> Gastroenterology, Hepatology, & Nutrition--> All Hep & East Wknd Cons Fel Day For follow up questions regarding this patient 7am to 5pm during the weekday, contact the Hepatology consults fellow or CARLOS A on QGenda. [facility]--> Internal Medicine--> Gastroenterology, Hepatology, & [...] Estrada MD, MSc documented in this encounter [facility] 01-19-2024 Nurse Note 01/19/24 0900 Vitals [...] rest, 95-96% when talking/moving. Paulette Cordon RN [facility] 01-19-2024 Nurse Note Paged overnight coverage, Jasper Gastelum MD, via pager #[phone] Pt- George Styles. Sarah 1082. TM1. Was wondering if he can have his Melatonin order increased to 6mg. Per pt, he usually takes 8mg at home. -SAMI Duffy #[phone] Tati Charles RN [facility] 01-18-2024 Consult note Associated Order (s): [...] Laterality: N/A; Surgeon: LU Palma; Location: [facility] SAME DAY SURGERY MAIN OR KIDNEY TRANSPLANT W/O HABEMATOLEL NEPHRECTOMY N/A 04/12/2020 Laterality: N/A; Surgeon: LU Palma; Location: [facility] SAME DAY SURGERY MAIN OR [...] (order for outpatient) Please SecureChat or Call ([phone]) for any questions. Await attending attestation for final recommendations. Hank Noel MD Division of Gastroenterology, Hepatology, and Nutrition Clinical Fellow, PGY-5 Pager: [phone] For urgent/stat calls or consults 5pm to 7am, please page the on-call GI fellow on Loopta. [facility]--> Internal Medicine--> Gastroenterology, Hepatology, & Nutrition--> 1st Call Fel Alysia For urgent/stat calls or consults 7am to 5pm during the weekend, please page the on-call GI fellow on Loopta. [facility]--> Internal Medicine--> Gastroenterology, Hepatology, & Nutrition--> All Hep & East Wknd Cons Fel Day For follow up questions regarding this patient 7am to 5pm during the weekday, contact the Hepatology consults fellow or CARLOS A on Topix. [facility]--> Internal Medicine--> Gastroenterology, Hepatology, & [...] for outpatient) Michael Estrada MD, MSc [facility] Work Phone: 01-16-2024 Plan of care note Internal Medicine Daily Progress Note Patient: George Styles, 1970, [id number] Physician: Arelis Mera MD, PGY3, Pager #[phone], TM1 service Assessment/Plan: George Styles is a [...] 5mg CAD: non-obstructive CAD on [facility] 2018. - continue home aspirin [...] MD, on rounds. Signed, Arelis Mera MD [facility] 01-16-2024 Nurse Note Mr. Styles was admitted to [address] [place] [address]. On admission to [facility], from outside facility a dual RN initial assessment of skin condition was performed by Izzy Gutierrez, RN and Leroy Singleton, SAMI. Skin Assessment: Skin within defined limits:Yes Jose Score: 20 Wound Vision Barbecue Cook images obtained: No LDA Added: No Based [...] room closest to nurses station when available. [facility] 01-16-2024 History and physical note Images from the original note were not included. Internal Medicine Admission History & Physical Patient: George Styles, 1970, [id number] Physician: Timothy Joseph MD, PGY1, Pager #[phone], TM 1 service Date of face to [...] 05/17/2022 Surgeon: Enzo Heart DO; Location: [facility] INTERVENTIONAL RADIOLOGY (VIR) LIVER TRANSPLANT, ORTHOTOPIC N/A 04/12/2020 Laterality: N/A; Surgeon: LU Palma; Location: [facility] SAME DAY SURGERY MAIN OR KIDNEY TRANSPLANT W/O HABEMATOLEL NEPHRECTOMY N/A 04/12/2020 Laterality: N/A; Surgeon: LU Palma; Location: [facility] SAME DAY SURGERY MAIN OR [...] itraconazole Fax results to: Dr. White - [phone] Transplant Neph - [phone] Gabapentin 400 MG capsule Sig: Take 1 [...] erythema: Skin: No jaundice or rash Neuro: nuclear weapons mechanical specialist 3-7, 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 Strength grossly [...] 5mg CAD: non-obstructive CAD on [facility] 2018. - continue home aspirin [...] Pierson, Luisa Steven, Renee Rivera, Daisha Max Surface Grinder: José Miguel Garnica All Txt: 04/13/2020 (Kidney), [...] results found for: CYCLOSPORIN , CYCLOSPORIN2 , [id number] , CYCLORAND No results found for: SIROLIMUS [...] request in chart. Kevin Sage MD Pager [phone] [facility] 01-16-2024 History and physical note Images from the original note were not included. Internal Medicine Admission History & Physical Patient: George Styles, 1970, [id number] Physician: Timothy Joseph MD, PGY1, Pager #[phone], TM 1 service Date of face to [...] 05/17/2022 Surgeon: Enzo Heart DO; Location: [facility] INTERVENTIONAL RADIOLOGY (VIR) LIVER TRANSPLANT, ORTHOTOPIC N/A 04/12/2020 Laterality: N/A; Surgeon: LU Palma; Location: [facility] SAME DAY SURGERY MAIN OR KIDNEY TRANSPLANT W/O HABEMATOLEL NEPHRECTOMY N/A 04/12/2020 Laterality: N/A; Surgeon: LU Palma; Location: [facility] SAME DAY SURGERY MAIN OR [...] itraconazole Fax results to: Dr. White - [phone] Transplant Neph - [phone] Gabapentin 400 MG capsule Sig: Take 1 [...] erythema: Skin: No jaundice or rash Neuro: nuclear weapons mechanical specialist 3-7, 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 Strength grossly [...] 5mg CAD: non-obstructive CAD on [facility] 2018. - continue home aspirin [...] Pierson, Luisa Steven, Renee Rivera, Daisha Max Surface Grinder: José Miguel Garnica All Txt: 04/13/2020 (Kidney), [...] results found for: CYCLOSPORIN , CYCLOSPORIN2 , [id number] , CYCLORAND No results found for: SIROLIMUS [...] request in chart. Kevin Sage MD Pager [phone] documented in this encounter [facility] 01-12-2024 History of Present illness Narrative [...] Prograf 0.2 MG Contact Info: Specialty (Yanci) [phone] [facility] [phone] [facility] [phone] [facility] [phone] Bedside Delivery ([facility]) [phone] [facility] RX OUTREACH ADVANCED: Call Information: Date and Time of Contact: 01/25/2024 10:23 AM Method of Contact: By Phone Contact Type: Prescriptions Contactor: [facility] Contactee: Patient Contact Outcome: Left message (prograf myco) Contact Info: Specialty (Hopkins) [phone] [facility] [phone] [facility] [phone] [facility] [phone] Bedside Delivery ([facility]) [phone] documented in this encounter [facility] 01-12-2024 History of Present illness Narrative [...] Prograf 0.2 MG Contact Info: Specialty (Yanci) [phone] [facility] [phone] [facility] [phone] Raheem [phone] Bedside Delivery ([facility]) [phone] [facility] RX OUTREACH ADVANCED: Call Information: Date and Time of Contact: 01/25/2024 10:23 AM Method of Contact: By Phone Contact Type: Prescriptions Contactor: [facility] Contactee: Patient Contact Outcome: Left message (prograf myco) Contact Info: Specialty (Yanci) [phone] [facility] [phone] [facility] [phone] Raheem [phone] Bedside Delivery ([facility]) [phone] [facility] RX OUTREACH ADVANCED: Call Information: Date and Time of Contact: 01/27/2024 10:19 AM Method of Contact: By Phone Contact Type: Prescriptions Contactor: [facility] Contactee: Patient Contact Outcome: Left message (myco prograf) Contact Info: Specialty (Hopkins) [phone] [facility] [phone] [facility] [phone] Raheem [phone] Bedside Delivery ([facility]) [phone] documented in this encounter [facility] 01-12-2024 History of Present illness Narrative [...] Prograf 0.2 MG Contact Info: Specialty (Yanci) [phone] [facility] [phone] [facility] [phone] [facility] [phone] Bedside Delivery ([facility]) [phone] [facility] RX OUTREACH ADVANCED: Call Information: Date and Time of Contact: 01/25/2024 10:23 AM Method of Contact: By Phone Contact Type: Prescriptions Contactor: [facility] Contactee: Patient Contact Outcome: Left message (prograf myco) Contact Info: Specialty (Yanci) [phone] [facility] [phone] [facility] [phone] [facility] [phone] Bedside Delivery ([facility]) [phone] [facility] RX OUTREACH ADVANCED: Call Information: Date and Time of Contact: 01/27/2024 10:19 AM Method of Contact: By Phone Contact Type: Prescriptions Contactor: [facility] Contactee: Patient Contact Outcome: Left message (myco prograf) Contact Info: Specialty (Yanci) [phone] [facility] [phone] [facility] [phone] [facility] [phone] Bedside Delivery ([facility]) [phone] [facility] OUTREACH ADVANCED: Call Information: Date and Time of Contact: 02/01/2024 3:22 PM Contact Type: Prescriptions Contactor: [facility] Contactee: Patient Contact Outcome: Left message Shipping/Pickup: Medication Name: Mycophenolate 360mg and Prograf 0.2mg Pack Contact Info: Specialty (Yanci) [phone] Jakob [phone] [facility] [phone] Raheem [phone] Bedside Delivery ([facility]) [phone] documented in this encounter [facility] 01-06-2024 History of Present illness Narrative [...] The neurologist wanted to send him to [facility] neurology but it is out of [...] see neurologist in [facility] Immunocompromised (CMS/HCC) Hypertension ([facility]) No change in meds Check echo Relevant [...] Prograf 0.2 MG Contact Info: Specialty (Yanci) [phone] [facility] [phone] [facility] [phone] [facility] [phone] Bedside Delivery ([facility]) [phone] [facility] OUTREACH ADVANCED: Call Information: Date and Time of Contact: 10/23/2023 2:00 PM Method of Contact: By Phone Contact Type: Prescriptions Contactor: [facility] Contactee: Patient Contact Outcome: Left message and Call back later Shipping/Pickup: Medication Name: Mycophenolate 360mg and Prograf 0.2mg Contact Info: Specialty (Hopkins) [phone] [facility] [phone] [facility] [phone] [facility] [phone] Bedside Delivery ([facility]) [phone] documented in this encounter [facility] 09-11-2023 Miscellaneous Notes Pt discharged home [...] the oxygen during the night. pt will crop picker his oxygen from [employer], 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 This RN made [...] Patient seen ambulating in the velazquez with SALES DEVELOPMENT REPRESENTATIVE. Patient was mildly short of breath on [...] & HR 114. Messaged Mainor Loomis, via [email or web address] secure chat, Temp 100.8. His tylenol order [...] short period of time. 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 Episode of [...] Critical Care Medicine Message Mainor Loomis, via [email or web address] secure chat, Good evening, just an FYI, [...] short period of time. 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 This morning, [...] [address] Loera here also (data management manager) Dr. Diaz aware of pt's increased oxygen [...] regular sleep/rest pattern promoted Sent a secure [email or web address] chat to Rosi LUZ concerning patient's temp [...] Medicine-Pediatrics, PGY-2 Mr. Styles was admitted to [address] [place] [address]. On admission to [facility], from home a [...] when available. documented in this encounter [facility] 09-11-2023 History of Present illness Narrative Provided follow-up emotional and spiritual support. Patient shared about rosemary of discharge and looking forward to seeing family Structural Steel Painter provided: - Supportive presence - Active listening - Validation of feelings/emotions Patient encouraged to request a music promoter as needed. Chaplains are available in-house 24 hours a day and 7 days a week. For urgent matters in [facility], please page [phone]. If the request is not urgent, please enter a consult. Consults are responded to within 24 hours. Senior Staff Structural Steel Painter Angie Singh Mdiv, [facility] [place] [phone] [email or web address] 22/06 On-call [place]: [phone] 22/06 Pager ,KIKE, and Brock Hernandez Pager [phone] 09/11/23 1430 Clinical Encounter Type Visited With Patient Visit Type Follow-up Pastoral Time Spent 15 min Referral Other (See Comment) (rounding) Spiritual Assessment Spiritual Observation Spirituality helpful Emotional Observation Coping well Hope Observation Specific hope focus Support Observation By Family Interventions Provided Active listening;Supportive presence Facilitated Verbalization of feelings Explored Expectations Gas Worker Education Gas Worker Service Available Yes Educated Patient Plan of Care Continue Visiting PRN Images from the original note were not included. [facility] ([facility] Note: Non-Verbal Med Rec [facility] received the following discharge prescription(s): Total cost is $0. I have reviewed the Discharge Rx Reconciliation Report. The discharge prescription(s) will be delivered to the patient on 09/11/2023. Dimitrios Gurrola RPh,PharmD Specialty (Hopkins) [phone] [facility] [phone] [facility] Bedside Delivery [phone] [facility] [phone] [facility] Bedside Delivery [phone] [facility] [phone] [facility] Bedside Delivery [phone] [place] [phone] [place] [phone] Internal Medicine Daily Progress Note Patient: George Styles, 1970, [id number] Physician: Evan Kelly MD, PGY-1, TM1 service Subjective/Interval History: Patient continues to require oxygen overnight for desaturations. With insurance limitations, only accepting agency to provide home oxygen backed out. After calling them to discuss, Lynn stated she would be willing to have patient drive to their facility to crop picker supplies, however they close at 5pm. 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 - continue home aspirin [...] 5.05 (H) 11/19/2018 Kevin Sage MD, MADISONN Flight Teacher of Clinical Medicine [facility] Images from the original note were not included. Final Discharge Planning and Transportation Final Discharge Planning Discharge Disposition: Home Services at Discharge: Outpatient clinical services (ie: lab draws, transfusions, injectables) (Home Oxygen by [employer] [facility]) Selected Continued Care - Admitted Since 08/28/2023 Durable Medical Equipment Coordination complete. Service Provider Selected Services Address Phone Fax Patient Preferred [employer] [facility] Supply Durable Medical Equipment [facility] [id number] Internal Comment last updated by Lora Lawrence RN 09/10/2023 1550 Correct contact information: [employer] [address] [place] [address] [place] [address] production line welder- you do not need to call at discharge, I already notified the company. Addendum [phone] [employer] [facility] notified this CM they are out of patient's insurance area and will not be able to service this patient at time of discharge. Provider notified. Addendum [phone] Dr [facility] and she said they are willing to accept patient if the patient would drive to the [place] office and crop picker the supplies. Patient is willing to [...] Lora Colón RN, MSN, CCM, CMCN Clinical Courier Delivery Driver- [facility] Transplant #[phone] Department of Pharmacy Transplant Note Patient: George [...] dose adjustment Name: Matt Kramer RPh,PharmD Phone: [phone] Date/Time: 09/10/2023 11:33 AM This CM sent referral via [employer] for O2 concentrator to 4 agencies Start date today Timer set for 1330 [facility] [employer] [facility] [employer] Addendum 1332 One accepting company reserved in [employer] [facility] [address] [place] [address] Lora Colón RN, MSN, CCM, CMCN Clinical Courier Delivery Driver- [facility] Transplant #[phone] NUTRITION FOLLOW-UP Nutrition Plan of Care: 1. Continue current diet order. 2. No oral supplements warranted at this time. 3. Monitor for significant weight changes. Monitor GI, skin integrity. 4. Monitor and encourage po intakes with goal of average po being 75-100%. 5. technical systems architect to follow. ___ Met with patient today [...] time. Will continue to monitor. RHIANNON BirminghamR Pager:[phone] Transplant Infectious Disease (Team 3) Progress Note [...] sign off. Please Epic message or page [phone] with questions. 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 - continue home aspirin [...] to follow. Please Epic message or page [phone] with questions. 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 - continue home aspirin [...] 5.05 (H) 11/19/2018 Kevin Sage MD, SERA Flight Teacher of Clinical Medicine [facility] [...] Epic message or page [phone] with questions. Ann Marie Haskins MD PGY-4, [...] he continues to improve. Please message via [email or web address] secure chat or page with any questions or concerns. Evan White DO Flight Teacher Division of Infectious Disease Transplant Infectious Disease [...] to follow. Please Epic message or page [phone] with questions. Evan White DO Transplant Infectious Diseases Images from the original note were not included. Pulmonary/Critical Care Medicine Daily Progress Note Reason for Consultation: bronch for infectious workup Requesting Physician: Dr. Sage CURRENT HOSPITALIZATION: Admit Date: 08/28/2023 [facility] Hospital LOS: 9 days Impression 1. [...] and interpreted reviewed the radiographic data [facility] 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 - continue home aspirin [...] 5.05 (H) 11/19/2018 Kevin Sage MD, MADISONN Flight Teacher of Clinical Medicine [facility] Images from the original note were not included. Pulmonary/Critical Care Medicine Daily Progress Note Reason for Consultation: bronch for infectious workup Requesting Physician: Dr. Sage CURRENT HOSPITALIZATION: Admit Date: 08/28/2023 [facility] Hospital LOS: 8 days Impression 1. [...] and interpreted reviewed the radiographic data in [email or web address]. Acute Occupational Therapy Evaluation Prior to Admission [...] Assessment: Transfer Assessment: Sit to Stand Transfer [place] Level: Sit->Stand: independent Skilled Intervention/Details: Sit->Stand: x1 from EOB, x1 from toilet Stand to Sit Transfer [place] Level: Stand->Sit: independent Skilled Intervention/Details: Stand->Sit: x1 to toilet, x1 to EOB Functional Mobility: Functional Mobility [place] Level: Functional Mobility/Gait: independent Ambulation Distance (Feet): [...] No Assistance Eatin - No Assistance CURRENT AM-[facility] Activity Raw Score: 21 CURRENT AM-PAC Activity [...] Intact Mobility Assessment: Supine to Sit Mobility [place] Level: Supine->Sit: modified orgas Bed Features/Set-up: Supine->Sit: Head of bed elevated Sit to Supine Mobility [place] Level: Sit->Supine: not tested Balance: Sitting Balance [...] environment. Transfer Assessment: Sit to Stand Transfer [place] Level: Sit->Stand: independent Skilled Intervention/Details: Sit->Stand: From EOB x 2 without difficulty. Stand to Sit Transfer [place] Level: Stand->Sit: independent Assistive Device: Stand->Sit: armed chair Skilled Rationale: Verbal cues, Positioning Gait/Functional Mobility: Gait Assessment [place] Level: Gait: stand-by assist Assistive Device: Gait: rollator Ambulation Distance (Feet): 400 Gait Deviations Identified: decreased grace, decreased gait speed Gait Skilled Rationale: verbal, upright posture, increase step length, increase foot clearance Skilled Intervention/Details - Gait: Reasonable foot clearnce without loss of balance but endorsing dyspnea as 6-7/10. Stairs: Stairs Assessment [place] Level: Stair Negotiation: not tested Outcome Score(s): CURRENT [facility] Basic Mobility Inpatient Short Form Turning over in bed: 4 - No Assistance Sitting/standing from chair: 4 - No Assistance Moving from lying on back to sittin - No Assistance Moving to and from bed to chair: 3 - A Little Assistance Walk in hospital room: 3 - A Little Assistance Climbing 3-5 steps with a railin - A Little Assistance CURRENT [facility] Mobility Raw Score: 21 CURRENT [facility] Mobility Functional Limitation/Modifier: 28.97% Currently Impaired [...] Daily Progress Note Patient: George Styles, 1970, [id number] Physician: Evan Kelly MD, PGY-1, TM1 service [...] s/p combined Liver-kidney transplant on 04/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 - continue home aspirin [...] 5.05 (H) 11/19/2018 Kevin Sage MD, SERA Flight Teacher of Clinical Medicine [facility] [...] to follow. Please Epic message or page [phone] with questions. Evan White DO Transplant Infectious Diseases Images from the original note were not included. Internal Medicine Daily Progress Note Patient: George Styles, 1970, [id number] Physician: Evan Kelly MD, PGY-1, TM1 service [...] s/p combined Liver-kidney transplant on 04/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 - continue home aspirin [...] P 450 system Kevin Sage MD, SERA Flight Teacher of Clinical Medicine [facility] [...] Internal Medicine and Pediatrics PGY-3 [facility] Brief plan of care update: Called [...] Internal Medicine and Pediatrics PGY-3 [facility] Transplant Infectious Disease (Team 3) Progress [...] to follow. Please Epic message or page [phone] with questions. 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 - continue home aspirin [...] 5.05 (H) 11/19/2018 Kevin Sage MD, FASN Flight Teacher of Clinical Medicine [facility] [...] follow up Lora Colón RN, MSN, CCM, [facility] Clinical Courier Delivery Driver- [facility] Transplant #[phone] Made introductory visit with patient. Provided emotional and spiritual support. Patient shared about: - Source of Rosemary: Camping/Fishing/Family - Spirituality/Mu-Ism Affiliation: raised Pentecostalism - Family Support/history - Experience with illness/hospital course - Hopes for healing/future Structural Steel Painter provided: - Supportive presence - Active listening - Validation of feelings/emotions - Pledged prayer Patient encouraged to request a music promoter as needed. Chaplains are available in-house 24 hours a day and 7 days a week. For urgent matters in [facility], please page [phone]. If the request is not urgent, please enter a consult. Consults are responded to within 24 hours. Senior Staff Structural Steel Painter Angie Singh Mdiv, [facility] [place] [phone] [email or web address] 22/06 On-call [place]: [phone] 22/06 Pager KIKE SNIDER, and Brock Hernandez Pager [phone] 09/02/23 7371 Clinical Encounter Type Visited With Patient Visit Type Introduction Pastoral Time Spent 15 min Referral Other (See Comment) (rounding) Spiritual Assessment Spiritual Observation Spirituality helpful Emotional Observation Coping well Hope Observation Specific hope focus Support Observation By Family Interventions Provided Active listening;Supportive presence Facilitated Verbalization of feelings Explored Expectations Gas Worker Education Gas Worker Service Available Yes Educated Patient Outcomes Patient Outcomes Reduced distress Plan of Care Continue Visiting PRN NUTRITION RISK SCREENING NOTE Nutrition Plan of Care: 1. Continue current diet order. 2. No oral supplements warranted at this time. 3. Monitor for significant weight changes. Monitor GI and skin integrity. 4. Monitor and encourage po intakes with goal of average po being 100%. 5. technical systems architect to follow. George Styles is a 53 y.o. 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 His post-transplant course was noteworthy for nephrostomy tube (05/17/2022-09/10/2022) due to concern for ureteral stone. He presents as a direct admission for fever, cough, for infectious workup. Pt unavailable and information obtained via chart review Nursing Education Specialist Screening Pt's appetite is good. Pt [...] with meds Food Allergies reviewed:Shellfish Cultural or Mu-Ism Restrictions/Preferences: None GI: Last Bowel Movement: 09/01/23 [...] time. Will continue to monitor. RHIANNON BirminghamR Pager:[phone] Internal Medicine Daily Progress Note Patient: George Styles, 1970, [id number] Physician: Evan Kelly MD, PGY-1, TM1 service [...] s/p combined Liver-kidney transplant on 04/13/20. 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 - continue home aspirin [...] as outlined above. Kevin Sage MD Pager [phone] Summary: Pharmacy Med Rec Department of Pharmacy [...] Supply: 90 Refills: 0 Provider: Zuly Bruno ANILINE PRESS WORKER Pharmacy: [facility] Other Comments: Patient reported his Last Home Dose of mycophenolate & tacrolimus was on 08/28/23 at 0900. Patient reported he was taking Bactrim and benzonatate for fevers and a cough he was having. Please feel free to contact me with any further questions. Name: Heidy Chatman Phone #: [phone] Date/Time: 09/01/2023 2:01 PM Time Spent: 15 minutes Associated attestation - Matt Kramer RPh,PharmD - 09/01/2023 2:28 PM EDT Department of Pharmacy Admission Medication Reconciliation Note Patient: George Styles Room/Bed: 1062/A I have reviewed the home medication list with the Filing Or Registry Clerk. All changes to the home medication list have been updated in IHIS. Updated ARCHITECTURAL ENGINEER Med List: Prior to Admission Medications [...] questions. Name: Matt Kramer RPh,Frankie Phone #: [phone] Date/Time: 09/01/2023 2:28 PM Transplant Infectious Disease [...] crypto antigen, EBV PCR -follow pending histo, [id number] labs These recommendations were discussed with the primary team. Transplant ID (Team 3) will continue to follow. Please Epic message or page [phone] with questions. Evan White DO Transplant Infectious Diseases Internal Medicine Daily Progress Note Patient: George Styles, 1970, [id number] Physician: Evan Kelly MD, PGY-1, TM1 service [...] s/p combined Liver-kidney transplant on 04/13/20. 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 - continue home aspirin [...] 5.05 (H) 11/19/2018 Kevin Sage MD, SERA Flight Teacher of Clinical Medicine [facility] Comprehensive Transplant Center Discharge Planning [...] Yes Name and Contact information: Gian Styles ([phone]) Reviewed and Updated in Demographics? : Yes Outpatient Providers Does patient have a primary care physician? : Yes When was the patient's last PCP visit?: > 30 days Does the patient follow any specialists?: No Reviewed and updated Care Team?: Yes Patient Care Team: Zuly Bruno CNP as PCP - General Environment/Caregivers Is the patient from a facility or fdc?: No Patient lives with: Alone Living Environment: [...] patient on Anticoagulation? : No [id number] [place] [address] - [address] [address] Hand Edger Does the patient or telephone services sales representative express financial concerns? : No Employed?: Disabled Coping/Stress Concerns about patient s coping and stress?: No Concerns about patient s caregiver s coping and stress?: No Values and Beliefs Cultural or pentecostalism practices that may impact discharge planning and/or [...] Plan 1. Identified self and role as Courier Delivery Driver. 2. Confirmed and updated demographics and treatment team. 3. Courier Delivery Driver will continue to follow with medical team/pt for any other additional discharge needs. Kasandra DON RN [facility] [phone] *Please note I am float and work Thursday and Thursday every other week. Please call [phone] for assist in my absence. Internal Medicine Daily Progress Note Patient: George Styles, 1970, [id number] Physician: Evan Kelly MD, PGY-1, TM1 service [...] s/p combined Liver-kidney transplant on 04/13/20. 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 - continue home aspirin [...] 5.05 (H) 11/19/2018 Kevin Sage MD, MADISONN Flight Teacher of Clinical Medicine [facility]plant [facility] Internal Medicine Daily Progress Note Patient: George Styles, 1970, [id number] Physician: Laurel Serrano MD, PhD, PGY-3, TM1 [...] s/p combined Liver-kidney transplant on 04/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 - continue home aspirin 81mg daily, atorvastatin 20mg daily Gout: continue home allopurinol 200mg daily BPH: continue home flomax 0.4mg daily DVT PPX: SQH Code Status: Full Code Disposition: Pending clinical course. Anticipate eventual discharge home. Discussed with team and attending, Kevin Sage MD, on rounds. Signed, Laurel Serrano MD, PhD documented in this encounter [facility] 09-10-2023 Hospital Discharge instructions Laurel Serrano [...] a sleep doctor. You will need to crop picker the oxygen concentrator when you leave [...] on healthy foods. documented in this encounter [facility] 09-01-2023 Consult note Associated Order (s): IP CONSULT TO PULMONOLOGY Pulmonary Medicine Inpatient Consultation Reason for Consultation: bronch for infectious workup Requesting Physician: Dr. Sage Pulmonary Attending Physician: Dr. Diaz CURRENT HOSPITALIZATION: Admit Date: 08/28/2023 [facility] Hospital LOS: 4 days Impression/Recommendations: George [...] short period of time. 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 Other histories as documented in the [...] cough for more than one month. ASSESSMENT Georeg Styles is a 53 y.o. male [...] any ill contacts. He traveled to [place] to [facility] in May. REVIEW OF SYSTEMS A complete [...] 05/17/2022 Surgeon: Enzo Heart DO; Location: [facility] INTERVENTIONAL RADIOLOGY (VIR) LIVER TRANSPLANT, ORTHOTOPIC N/A 04/12/2020 Laterality: N/A; Surgeon: LU Palma; Location: [facility] SAME DAY SURGERY MAIN OR KIDNEY TRANSPLANT W/O HABEMATOLEL NEPHRECTOMY N/A 04/12/2020 Laterality: N/A; Surgeon: LU Palma; Location: [facility] SAME DAY SURGERY MAIN OR [...] Alamo MD I can be reached via [email or web address] secure message (preferred) or Pager #[phone] documented in this encounter [facility] 08-28-2023 History and physical note Images from the original note were not included. Internal Medicine Admission History & Physical Patient: George Styles, 1970, [id number] Physician: Aric Turner MD, PGY1, Pager #[phone], AS service Date of face to face patient [...] So he went to see the transplant coating machine helper. He was found elevated Cr and [...] Appetite is ok now. Urine is about 8236-9764 ml every day. 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 - continue aspirin 81mg [...] Pierson, Luisa Steven, Renee Rivera, Daisha Max Surface Grinder: José Miguel Garnica All Txt: 04/13/2020 (Kidney), [...] results found for: CYCLOSPORIN , CYCLOSPORIN2 , [id number] , CYCLORAND No results found for: SIROLIMUS [...] Rest as above. Kevin Sage MD Pager [phone] documented in this encounter [facility] 08-28-2023 History of Present illness Narrative Images from the original note were not included. 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 Surface Grinder: Anayeli Burt Date of Liver Transplant: 04/13/2020 (Kidney), 04/13/2020 (Liver) 3 years 4 months post Liver/Kidney Transplant Primary Disease: Hypertensive Nephrosclerosis Transplant Auto Body Repair Technician: Erma Roe/ Daisha Max Primary Care physician: [...] and faMOTIdine === None Specified Preferred Lab: [facility] Change in lab frequency / new [...] every 12 hours. ADDITIONAL INFORMATION: None Specified, [id number] - [place] [address] - [address] [address] [facility] [address], [address] [facility] [address] [id number] [place] [address] [address] [facility] [address] [facility] [address] [facility] [address], [address] [facility] [address] ROS and SCREEN: Chest Pain: negative Cough: [...] I saw George Styles at the [facility] on 08/28/2023. Patient is a 53 y.o. 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 Steve Latham MD integrated pest management technician Division of Nephrology [facility] documented in this encounter [facility] 08-28-2023 Instructions Mainor Busby RN - 08/28/2023 2:15 PM EDT - Admission for fevers, cough, and night sweats documented in this encounter [facility] 08-19-2023 History of Present illness Narrative [facility]RE[facility]: Call Information: Date and Time of Contact: 08/19/2023 2:52 PM Method of Contact: By Phone Contact Type: Prescriptions Contactor: [facility] Contactee: Patient Shipping/Pickup: Medicare B Refill?: No Medication Name: Tacro 0.5mg Delivery Method: Air Delivery Location: Home Signature Required: No Mailing/Pickup Date: 08/25/2023 Shipping Address: [address] [place] [address] [address] Contact Info: Specialty ([place]) [phone] Jakob [phone] [facility] [phone] Raheem [phone] Bedside Delivery ([facility]) [phone] documented in this encounter [facility] 06-12-2023 History of Present illness Narrative Images from the original note were not included. George Styles is a 53 y.o. 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 No longer follows with a local coating machine helper. History of Present Illness: Since George [...] and lab results. Rebeca Gutierrez MSN, RN, CHEMICAL PROCESS ANALYST-BC, CCTN Certified Nurse Practitioner Comprehensive Transplant Center [facility] [address] [facility] [address] documented in this encounter [facility] 06-12-2023 Instructions JEANNA Hess - 06/12/2023 3:00 PM EDT No change in immunosuppression. [facility] History of Present illness Narrative [facility]REACH [facility]: Call Information: Method of Contact: By Phone Contact Type: Prescriptions Contactor: [facility] Contactee: Patient Contact Outcome: Left message Shipping/Pickup: Medication Name: Mycophenolate sod 180 mg Contact Info: Specialty ([place]) [phone] [facility] [phone] [facility] [phone] Raheem [phone] Bedside Delivery ([facility]) [phone] [facility]REACH [facility]: Call Information: Date and Time of Contact: 06/12/2023 9:43 AM Method of Contact: By Phone Contact Type: Prescriptions Contactor: [facility] Contactee: Patient Contact Outcome: Left message and Follow-up Shipping/Pickup: Medicare B Refill?: No Medication Name: Myco 180 Contact Info: Specialty ([place]) [phone] [facility] [phone] [facility] [phone] Raheem [phone] Bedside Delivery ([facility]) [phone] [facility] OUTREACH ADVANCED: Call Information: Date and Time of Contact: 06/12/2023 10:08 AM Method of Contact: By Phone Contact Type: Prescriptions Contactor: [facility] Contactee: Patient Shipping/Pickup: Medicare B Refill?: No Medication Name: Mycophenolate 180mg DR Delivery Method: Air Delivery Location: Home Signature Required: No Mailing/Pickup Date: 06/17/2023 Shipping Address: [address] [place] [address] Contact Info: Specialty ([place]) [phone] [facility] [phone] [facility] [phone] Raheem [phone] Bedside Delivery ([facility]) [phone] documented in this encounter [facility] 03-12-2023 History of Present [...] Required: No Mailing/Pickup Date: 03/16/2023 Shipping Address: [address] [place] [address] Contact Info: Specialty ([place]) [phone] [facility] [phone] [facility] [phone] Raheem [phone] Bedside Delivery ([facility]) [phone] [facility]REACH ADVANCED: Call Information: [...] No Mailing/Pickup Date: 03/19/2023 Shipping Address: [address] Contact Info: Specialty ([place]) [phone] [facility] [phone] [facility] [phone] [facility] [phone] Bedside Delivery ([facility]) [phone] documented in this encounter [facility] 03-10-2023 History of Present illness Narrative [facility]REACH ADVANCED: Call Information: Date and Time of Contact: 03/10/2023 12:00 PM Method of Contact: By Phone Contact Type: Prescriptions Contactor: [facility] Contactee: Patient Contact Outcome: Left message and Call back later Shipping/Pickup: Medication Name: Mycophenolate ; Tacrolimus Contact Info: Specialty ([place]) [phone] [facility] [phone] [facility] [phone] [facility] [phone] Bedside Delivery ([facility]) [phone] documented in this encounter [facility] 03-10-2023 History of Present illness Narrative [facility] OUTREACH ADVANCED: Call Information: Date and Time of Contact: 03/10/2023 12:00 PM Method of Contact: By Phone Contact Type: Prescriptions Contactor: [facility] Contactee: Patient Contact Outcome: Left message and Call back later Shipping/Pickup: Medication Name: Mycophenolate ; Tacrolimus Contact Info: Specialty ([place]) [phone] [facility] [phone] [facility] [phone] [facility] [phone] Bedside Delivery ([facility]) [phone] [facility] OUTREACH ADVANCED: Call Information: Date and Time of Contact: 03/12/2023 10:32 AM Method of Contact: By Phone Contact Type: Prescriptions Contactor: [facility] Contactee: Patient Contact Outcome: Left message Shipping/Pickup: Medication Name: Mycophenolate sodium (MYFORTIC) 180 MG Tab tacrolimus 0.5 mg Contact Info: Specialty ([place]) [phone] Jakob [phone] [facility] [phone] Raheem [phone] Bedside Delivery ([facility]) [phone] documented in this encounter [facility] 01-16-2023 History of Present illness Narrative -Referring Provider for today's consult: Daisha Max DO -Primary Care Provider: Zuly Bruno History of Present Illness George Styles is a 52 y.o. male who presents to the [facility] Transplant Hepatology Clinic today [...] 05/17/2022 Surgeon: Enzo Heart DO; Location: [facility] INTERVENTIONAL RADIOLOGY (VIR) LIVER TRANSPLANT, ORTHOTOPIC N/A 04/12/2020 Laterality: N/A; Surgeon: LU Palma; Location: [facility] SAME DAY SURGERY MAIN OR KIDNEY TRANSPLANT W/O HABEMATOLEL NEPHRECTOMY N/A 04/12/2020 Laterality: N/A; Surgeon: LU Palma; Location: [facility] SAME DAY SURGERY MAIN OR [...] 0.3 12/29/2022 Explant Pathology Pathologic Diagnosis A. Kake liver, orthotopic liver transplant resection (1458 gram): [...] A/P with IV contrast (06/27/2022): 1. Both eagle kidneys are atrophic with improvement in right-sided [...] frequent nighttime urination, etc). Daisha Max DO Flight Teacher Gastroenterology, Hepatology and Nutrition [facility] Pager: [phone] Images from the original note were not included. 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 Surface Grinder: Anayeli Burt Date of Liver Transplant: 04/13/2020 (Kidney), 04/13/2020 (Liver) 2 years, 8 months post Liver/Kidney Transplant Primary Disease: Hypertensive Nephrosclerosis Transplant Auto Body Repair Technician: Steve Latham Primary Care physician: Zuly Bruno [...] levels: No results found for: CYCLOSPORIN, CYCLOSPORIN2, [id number], CYCLORAND No components found for: CYCLOSPORINE, 2HR POST No results found for: SIROLIMUS, RAPAMUNE, RAPAMYCIN No results found for: EVEROLIMUS, EVRLMSTRGH, EVERTRGHMANE Lab Results Component Value Date TACROLIMUS 4.1 05/16/2022 TACROLIMUS 6.4 05/14/2020 TACROLIMUS 4.8 05/12/2020 TACROTRGHMAN 5.6 12/29/2022 TACROTRGHMAN 4.9 11/04/2022 TACROTRIDANIAMAN 4.6 09/15/2022 CHEMISTRY: Lab Results Component Value [...] hours. ADDITIONAL INFORMATION: None Specified [id number] [place] [address] - [address] [facility] [address] [facility] [address] [facility] [address] [facility] [address] [place] [address] [id number] - [place] [id number] [address] [facility] [address] [place] [id number] [facility] [address], [facility] [address] [facility] [address] ROS and SCREEN: Chest Pain: negative Cough: [...] ADDRESS WITH PHYSICIAN: documented in this encounter [facility] 01-16-2023 Instructions José Miguel Garnica RN - 01/16/2023 9:40 AM EST - Labs Every 2 months - Discuss night time urination with your PCP - Schedule Colonoscopy through PCP - Follow up in 1 year documented in this encounter [facility] 09-10-2022 History of Present illness Narrative [...] and no hydronephrosis. Some reflux up the eagle right ureter but good drainage of both transplant and eagle ureter to the bladder. Nephrostomy tube was [...] transplant, orthotopic (N/A, 04/12/2020); kidney transplant w/o eagle nephrectomy (N/A, 04/12/2020); and placement nephrostomy catheter [...] Negative for , diarrhea, constipation Genitourinary: See [place] Neurological: Negative for headaches. Lymph/Heme: Negative for [...] x 4, Normal strength. No edema. Skin: [place], warm, and dry. There are no rashes [...] and no hydronephrosis. Some reflux up the eagle right ureter but good drainage of both transplant and eagle ureter to the bladder. Nephrostomy tube was [...] MD 09/10/22 documented in this encounter [facility] 07-07-2022 History of Present illness Narrative [...] assisted off the table and escorted to director of special education where they made a follow up. Associated [...] male with a DDRT to the [facility] in 2019. Nephrostomy tube placed 05/17/22 [...] to have transplant ureter with anastomosis to eagle right ureter. Nephrostogram without filling defects and no hydronephrosis. Some reflux up the eagle right ureter but good drainage of both transplant and eagle ureter to the bladder. Nephrostomy tube was removed without issue. Patient does have some sensation of incomplete bladder emptying and occasional sensation in his right flank. PVR today was 33cc. Will re-evaluate urinary symptoms at next appointment. --continue Flomax --RTC in one month flow flow/PVR/IPSS Patient to call with any additional questions or concerns. Ryan Yepez MD 07/07/22 documented in this encounter [facility] 06-27-2022 History of Present illness Narrative [...] transplant, orthotopic (N/A, 04/12/2020); kidney transplant w/o eagle nephrectomy (N/A, 04/12/2020); and placement nephrostomy catheter [...] Negative for , diarrhea, constipation Genitourinary: See [place] Neurological: Negative for headaches. Lymph/Heme: Negative for [...] x 4, Normal strength. No edema. Skin: [place], warm, and dry. There are no rashes [...] male with a DDRT to the [facility] in 2019. Nephrostomy tube placed 05/17 [...] bag if needed. documented in this encounter [facility] 06-27-2022 History and physical note Patient was evaluated in clinic as a nurse visit. Please refer to Rena Brewster's note. [facility] Work Phone: 06-27-2022 History and physical note Patient was evaluated in clinic as a nurse visit. Please refer to Rena Brewster's note. documented in this encounter [facility] 06-27-2022 History of Present illness Narrative TEACHING REGARDING TX NEPH COMPLETED-NEPH TUBE SITE DRY AND INTACT-CLEAR YELLOW URINE IN THE BAG-INSTRUCTED ABOUT FLUSHING, BAG CHANGING ETC. NUMEROUS QUESTIONS ASKED AND ANSWERED-VERBALIZED UNDERSTANDING documented in this encounter [facility] 06-18-2022 Note EXAMINATION: CT ABD/ PELVIS [...] mass or enlargement. KIDNEYS: Marked atrophy of eagle kidneys. Transplant right pelvic kidney with percutaneous [...] authenticated by: MÓNICA JIMENEZ Date: 2022-06-18 13:53 [facility] 06-12-2022 Instructions Anayeli Christianson RN - 06/12/2022 3:21 PM EDT Do not take apart/disrupt nephrostomy tube system. Call Interventional Radiology and/or on-call transplant nurse [phone] for instruction if need to flush (clot or decreased flow). Take cipro 500mg, one tablet, twice per day for 14 days documented in this encounter [facility] 06-12-2022 History of Present illness Narrative Images from the original note were not included. 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 Surface Grinder: Anayeli Burt Date of Liver Transplant: 04/13/2020 (Kidney), 04/13/2020 (Liver) 2 year, 1 months post Liver/Kidney Transplant Primary Disease: Hypertensive Nephrosclerosis Transplant Auto Body Repair Technician: Steve Latham Primary Care physician: Zuly Bruno [...] PREFERRED LAB AND PHARMACY: None Specified [facility] [place] [address] - [address] [address] [facility] [address], [address] [facility] [address] [id number] [place] [address] [address] [facility] [address] [facility] [place] [address] [facility] [address], [address] [facility] [address] ROS and SCREEN: Chest Pain: negative Cough: negative SOB: negative Abd Pain: negative Nausea: positive Vomiting: negative Diarrhea: negative Constipation: negative Dysuria: positive Edema: negative Tremors: negative Headaches: negative Wound issues: negative Pt has neph tube w clear yellow urine. States he had a small clot that he dislodged QUESTIONS OR CONCERNS TO ADDRESS WITH PHYSICIAN: I saw George Styles at the [facility] on 06/12/2022. Patient is a 52 y.o. 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 Steve Latham MD integrated pest management technician Division of Nephrology [facility] documented in this encounter [facility] 06-04-2022 Instructions TATI GROVE - 06/04/2022 11:04 AM EDT Thank you for joining us for your neph tube follow up. We recommend routine exchange every 8-10 weeks. Please reach out at [phone] when it is time to set your next routine exchange. Thank you IR clinic documented in this encounter [facility] 06-04-2022 History of Present illness Narrative [...] exchange. Verbalized understanding. documented in this encounter [facility] 05-20-2022 Note Formatting of this n [...] time of his discharge. Leon Cook RN [facility] 05-20-2022 Miscellaneous Notes Patient discharged. AVS [...] provide teaching before his discharge Leon RN #[id number] Leon Cook RN Afternoon assessment completed at [...] Interdisciplinary Rounds/Family Conf Outcome: Ongoing Discussed with [facility] re: possible urine culture performed at [...] nephrostomy tube placement transplant kidney 10.2 Fr Moya acosta Pt tolerated procedure with moderate sedation [...] with questions. Evan Byrd MD Urology, PGY-2 #[id number] I certify that this patient requires inpatient [...] Kallie Lorenzana RN documented in this encounter [facility] 05-20-2022 Note Formatting of this n [...] discharge/transition of care. Outcome: Adequate for Discharge [facility] 05-20-2022 Note Formatting of this n ote might be different from the original. Anne Dillard MD R10 Rm 1006 Jensen George Please let's have a clear order on how the nephrostomy site dressing need to be changed when the patient goes home so we provide teaching before his discharge Leon RN #[id number] Leon Cook RN [facility] 05-20-2022 History of Present illness Narrative Images from the original note were not included. [facility] Note: [facility] the following [facility] prescription(s): Medication reconciliation was completed with comparison to discharge reconciliation report. The prescription(s) will be delivered to the patient's bedside on 05/20/22. Total cost is $0. Yanira Her RPh,PharmD Specialty ([place]) [phone] [facility] [phone] [facility] [phone] Raheem [phone] [place] [phone] Bedside Delivery ([facility]) [phone] Attending I saw George Styles at the [facility] on 05/19/2022. I saw and independently [...] Daily Progress Note Patient: George Styles, 1970, [id number] Physician: Liam Julian MD, PGY-3, Pager #[phone], [email or web address] Subjective/Interval History: No acute events overnight. Passed [...] Saldana MD Division of Hospital Medicine Pager [phone] Attending I saw George Styles at the [facility] on 05/18/2022. I saw and independently [...] Daily Progress Note Patient: George Styles, 1970, [id number] Physician: Nishant Gamez MD, PGY2, Pager #[phone], [email or web address] Subjective/Interval History: Nephrostomy tube placed yesterday with a lot of urine output and significant improvement in creatinine. 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 Daya ([place]) Jeff Saldana MD Division of Hospital Medicine Pager [phone] Internal Medicine Daily Progress Note Patient: George Styles, 1970, [id number] Physician: Nishant Gamez MD, PGY2, Pager #[phone], [email or web address] Subjective/Interval History: Worsening creatinine this morning with [...] Saldana MD Division of Hospital Medicine Pager [phone] Attending I saw George Styles at the [facility] on 05/17/2022. I saw and independently [...] of chart and discussion with treatment team, Courier Delivery Driver has not identified needs at this time. [...] follow. Introduced self and role of the music promoter to patient. Provided emotional and spiritual support and the patient responded by sharing their experience and discussed the following: - Spirituality/Mu-Ism Affiliation: As a kid attended Pentecostalism shinto but not a strong identity now - Family support - pt's brothers live close by Structural Steel Painter provided: - Supportive presence - Active listening - Validation of feelings/emotions Patient encouraged to request a music promoter as needed. Chaplains are available in-house 24 hours a day and 7 days a week. For urgent matters in [facility], please page [phone]. If the request is not urgent, please enter a consult. Consults are responded to within 24 hours. Angie Singh Mdiv, [facility] Trans[facility] [place] [phone] Structural Steel Painter [facility] Structural Steel Painter [place] [phone] [email or web address] 22/06 [facility] Pager [phone] 22/06 Pager ,[facility], and [place] 1500 22/06 Raheem Pager [phone] 05/16/22 1128 Clinical Encounter Type Visited With Patient Visit Type Introduction Pastoral Time Spent 15 min Referral Other (See Comment) (Rounding) Spiritual Assessment Spiritual Observation Spirituality helpful;Identifies as (see comment) (Protestant) Emotional Observation Coping well Hope Observation Hopeful and accepting Support Observation By Family Interventions Provided Active listening;Supportive presence Facilitated Verbalization of feelings;Sharing of life story;Identifying support system Explored Expectations Gas Worker Education Gas Worker Service Available Yes Educated Patient Outcomes Patient Outcomes Articulated purpose/meaning Plan of Care Continue Visiting PRN Internal Medicine Daily Progress Note Patient: George Styles, 1970, [id number] Physician: Nishant Gamez MD, PGY2, Pager #[phone], [email or web address] Subjective/Interval History: Overall feeling okay this morning. 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 [...] Supervision Transfer Assessment: Sit to Stand Transfer [place] Level: Sit->Stand: independent Skilled Intervention/Details: Sit->Stand: x1 from EOB Stand to Sit Transfer [place] Level: Stand->Sit: supervision Assistive Device: Stand->Sit: armed chair Skilled Rationale: Controlled descent for sitting, Verbal cues Gait/Functional Mobility: Gait Assessment [place] Level: Gait: supervision Assistive Device: Gait: gait belt Gait Distance (feet): 200 Gait Deviations Identified: decreased grace, decreased step length, decreased stride length Gait Skilled Rationale: verbal, upright posture Skilled Intervention/Details - Gait: Pt with steady gait without LOB or complaints of SOB. Stairs: Stairs Assessment [place] Level: Stair Negotiation: stand-by assist Assistive Device: Stair Negotiation: gait belt, left rail (ascending) Number of stairs: 9 Stairs Skilled Rationale: reciprocal pattern Outcome Score(s): CURRENT [facility] Basic Mobility Inpatient Short Form Turning over in bed: 4 - No Assistance Sitting/standing from chair: 4 - No Assistance Moving from lying on back to sittin - No Assistance Moving to and from bed to chair: 4 - No Assistance Walk in hospital room: 3 - A Little Assistance Climbing 3-5 steps with a railin - A Little Assistance CURRENT [facility] Mobility Raw Score: 22 CURRENT [facility] Mobility Functional Limitation/Modifier: 20.91% Currently Impaired [...] reported no concerns with discharging home with [place] support. 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 [...] Assessment: Transfer Assessment: Sit to Stand Transfer [place] Level: Sit->Stand: independent Skilled Rationale: Cues for increased safety Skilled Intervention/Details: Sit->Stand: x1 EOB Stand to Sit Transfer [place] Level: Stand->Sit: supervision Assistive Device: Stand->Sit: gait belt, armed chair Skilled Rationale: Verbal cues, Controlled descent for sitting, Cues for increased safety Skilled Intervention/Details: Stand->Sit: cues for hand placement and controlled descent Functional Mobility: Functional Mobility [place] Level: Functional Mobility/Gait: stand-by assist Assistive Device: Functional Mobility/Gait: gait belt Functional Mobility Distance: Distance needed for limited community mobility Functional Mobility Deficits: Activity tolerance, Balance, Decreased step length, Generalized weakness Functional Mobility Skilled Rationale: Verbal cues, Facilitate postural control Skilled Intervention/Details - Functional Mobility/Gait: cues for upright posture Outcome Score(s): CURRENT [facility] Daily Activity Inpatient Short Form Putting on/Taking Off Lower Body Clothin - A Little Assistance Bathin - A Little Assistance Toiletin - A Little Assistance Putting on/Taking Off Upper Body Clothin - No Assistance Groomin - No Assistance Eatin - No Assistance CURRENT [facility] Activity Raw Score: 21 CURRENT [facility] Activity Functional Limitation/Modifier: 32.79% Currently Impaired [...] DAY SURGERY MAIN OR KIDNEY TRANSPLANT W/O HABEMATOLEL NEPHRECTOMY N/A 04/12/2020 Laterality: N/A; Surgeon: LU [...] by: Mel Norman OT, OTR/L License #: [id number] pager # [phone] 05/20/2022 Upon discontinuation of Acute Care Occupational Therapy Services or patient discharge from the hospital this note represents the current Occupational Therapy Discharge Summary. documented in this encounter [facility] 05-20-2022 Hospital course Narrative Discharge Summary [...] during his recent hospital stay at [facility]. As you may know, George [...] concerns regarding his hospital stay. Sincerely, Nishant Gaemz MD Dictated under attending physician Daya Saldana MD Division of Hospital Medicine p: [phone] f: [phone] CONSULTS DURING ADMISSION: IP CONSULT TO SURGERY - UROLOGY IP CONSULT TO NEPHROLOGY - TRANSPLANT (MEDICINE) IP CONSULT TO INTERVENTIONAL RADIOLOGY IP CONSULT TO PHYSICAL THERAPY IP CONSULT TO OCCUPATIONAL THERAPY IP CONSULT TO PHARMACY BEDSIDE DISCHARGE MED DELIVERY IMAGING / PROCEDURES / RESULTS: Should you require further information or copies of results or reports please contact Medical Information Management @ [phone] LABS AT TIME OF DISCHARGE: Lab Results [...] AT DISCHARGE: Zuly Bruno [address] [facility] / [place] [address] MEDICATIONS: Discharge Orders CT ABDOMEN/PELVIS WITHOUT CONTRAST [...] CAPS Generic drug: docusate Follow-up: Zuly Bruno, KRAFT DIGESTER OPERATOR [address] [facility] [phone] Schedule an appointment as soon as possible for a visit Follow-up appointment with your, primary care physician within 7-10 days, after discharge. [address] [facility] [phone] Follow up The department of urology will call you with a follow up appointment. LU Ovalle [address] 11th Floor [facility] [phone] Follow up Please make a follow up appointment with Dr. Latham's office. Upcoming Appointments (up to five)-Some appointments for Medical Center outpatient clinics or diagnostic testing locations are not displayed below Provider Department Dept Phone 06/04/2022 10:40 AM IR CLINIC [facility], [facility] Interventional Radiology Clinic [phone] 06/27/2022 1:30 PM [facility] Department of Radiology Arrive at: Arrive to First Floor Registration Desk [phone] 06/27/2022 2:40 PM Ryan Yepez [facility] Arrive at: Arrive to 2nd Floor, Registration [address] 10/31/2022 1:00 PM Steve Latham [facility] Transplant [facility] [phone] 01/16/2023 9:40 AM TRANSPLANT HEPATOLOGY , [facility] Transplant [facility] [phone] Associated attestation - Daya Saldana MD - [...] Saldana MD Division of Hospital Medicine Pager [phone] documented in this encounter [facility] 05-20-2022 Hospital Discharge instructions Giulia Cavazos [...] be changed by Interventional Radiology. Please call [phone] to schedule this appointment and with any questions or concerns you may have regarding the nephrostomy tube. If you have questions or concerns, please call Interventional Radiology at SOMEONE FROM INTERVENTIONAL RADIOLOGY WILL CALL YOU FOR A FOLLOW UP IN THE IR CLINIC Giulia Cavazos RN Nurse Coordinator Interventional Radiology Interventional Radiology Outpatient scheduling documented in this encounter [facility] 05-19-2022 Note Formatting of this n [...] Goal: Interdisciplinary Rounds/Family Conf Outcome: Ongoing [facility] 05-19-2022 Note Formatting of this n ote might be different from the original. Discussed with [facility] re: possible urine culture performed at their facility. However, based on urinalysis completed at that time, which was only notable for hematuria, culture was not performed and sample no longer feasible for culture. Liam Julian MD Internal Medicine/Pediatrics, PGY-3 [facility] 05-18-2022 Note Formatting of this n ote might be different from the original. 2002: IHIS message sent to Dr Justyn Wen, regarding patient passing a small kidney stone, about the size of pea. MD notified. Stone left in strainer in pt bathroom. 0500: IHIS message sent to Dr Justyn Wen, regarding pt BP 174/77. [facility] 05-18-2022 Note Formatting of this n [...] outcomes by discharge/transition of care. Outcome: Ongoing [facility] 05-18-2022 Note Formatting of this n [...] becomes hyponatremic, NS should instead be used. [facility] Work Phone: 05-18-2022 Note Formatting of this n ote might be different from the original. IHIS chat sent to Dr Tray Quintana, regarding pt BP 190/86. Pt complaining of pain at site of neph tube. PRN pain medication given per order parameters. Pt denies any other symptoms at this time. MD notified and aware. [facility] 05-17-2022 Note Formatting of this n ote might be different from the original. At 0900, I rounded with Dr. Gamez and Dr. Saldana. At that time I checked Mr. Styles's vital signs. His pulse oximeter was low and he was tachypneic. Verbal order at bedside to put nasal cannula on starting at 2liters oxygen and to provide incentive spirometer. [facility] 05-17-2022 Note Formatting of this n ote might be different from the original. Interventional Radiology procedure completed with IR Attending Dr. Heart / Dr. Le of percutaneous right nephrostomy tube placement transplant kidney 10.2 Fr Griffin acosta Pt tolerated procedure with moderate sedation local numbing agent . Transported to inpatient after phase I recovery. Post procedure orders in place. [facility] 05-16-2022 Note Formatting of this n ote might be different from the original. At 1530, I text chavad Kaitlynn Gomez MD that patient has only had 25ml urine output in matias this afternoon. [facility] 05-16-2022 Note Formatting of this n [...] with questions. Evan Byrd MD Urology, PGY-2 #[id number] [facility] Work Phone: 05-16-2022 Note Formatting of this n ote might be different from the original. I certify that this patient requires inpatient services at this time. I anticipate the expected length of stay will include at least two midnights. Inpatient services are due to the following medical concerns Obstructive kidney stone. Plans for post hospitalization care will be discharge to home. [facility] 05-16-2022 Consult note Associated Order (s): IP CONSULT TO NEPHROLOGY - TRANSPLANT (MEDICINE) I saw George Styles at the [facility] on 05/16/2022. Reason for Consultation: kidney stone and FAEY; LK transplant 2019 on tac/cellcept. Held them [...] he was given flomax and sent home. [place] better but noticed more pain and decreased [...] best assessment and recommendations. Maxi Pringle MD [facility] Work Phone: 05-16-2022 Consult note Associated Order (s): IP CONSULT TO NEPHROLOGY - TRANSPLANT (MEDICINE) I saw George Styles at the [facility] on 05/16/2022. Reason for Consultation: kidney [...] he was given flomax and sent home. [place] better but noticed more pain and decreased [...] states he went to his local ED [place] and he was put on Flomax and he did improve. Pt states last night he was unable to void with severe right sided abd pain. Pt states nausea and no vomiting or fevers. Pt states he went back to [place] ED at 0100 and they placed a [...] orthotopic (N/A, 04/12/2020); and kidney transplant w/o eagle nephrectomy (N/A, 04/12/2020). 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 The eagle kidneys are progressively atrophic bilaterally compared to [...] of 06/14/2020 are no longer present. The eagle distal right ureter is decompressed beyond this [...] with surgical history for renal graft and eagle right urinary drainage, as a discrete ureteroneocystostomy is not identified, and the graft may be draining via a ureteroureterostomy. Urology consultation recommended. 3. The eagle kidneys are bilaterally atrophic, with right renal sinus calcifications consistent with nonobstructing right eagle renal calculi up to 6 mm. Normal [...] PGY-3, Department of Urologic Surgery Pager #: [phone] Associated attestation - Ryan Yepez MD - [...] continue flomax documented in this encounter [facility] 05-16-2022 Note Formatting of this n [...] supported Trust Relationship/Rapport: care explained [facility] Note Formatting of this n ote might be different from the original. On admission to R10, a dual RN initial assessment of skin condition was performed by Kallie Lorenzana RN and Sheri Arguelles RN. Skin Assessment: WDL Jose Score: 20 LDA Added:N Kallie Lorenzana RN [facility] 05-15-2022 Emergency department Note Report given to Kallie RN at [facility] 05-15-2022 Emergency department Note Report given to Kallie RN at [facility] Bladder scan with Dr Villatoro at bedside, [...] Thursday and was sent home with [facility]. He went back to that [...] Laterality: N/A; Surgeon: LU Palma; Location: [facility] SAME DAY SURGERY MAIN OR KIDNEY TRANSPLANT W/O HABEMATOLEL NEPHRECTOMY N/A 04/12/2020 Laterality: N/A; Surgeon: LU [...] 1736 CREATININE SERUM(!): 2.85 Baseline around 1.4 7 WBC(!): 15.81 2028 Patient discussed with Urology. [...] Schneider MD Resident 05/15/222030 Pt arrives from [facility] with kidney stones. Pt states he had right lower abd pain and right flank pain with blood in his urine since Thursday. Pt states he went to his local ED [place] and he was put on Flomax and he did improve. Pt states last night he was unable to void with severe right sided abd pain. Pt states nausea and no vomiting or fevers. Pt states he went back to [place] ED at 0100 and they placed a matias and CT scan completed and multiple kidney stones noted. [facility] he had liver and kidney transplant in 03/2020. documented in this encounter [facility] 05-15-2022 History and physical note Internal Medicine Admission History & Physical Patient: George Styles, 1970, [id number] Physician: Evan Bennett MD, PGY1, Pager #[phone], GM 4 service Date of face to [...] DAY SURGERY MAIN OR KIDNEY TRANSPLANT W/O HABEMATOLEL NEPHRECTOMY N/A 04/12/2020 Laterality: N/A; Surgeon: LU [...] erythema: Skin: No jaundice or rash Neuro: nuclear weapons mechanical specialist 3-7, 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 Strength grossly [...] dilation of the calyces may represent narrowing/partial [id number] ofthe ureter and mild hydronephrosis or sequela [...] Fred Prince MD Division of Hospital Medicine [phone] [facility] Work Phone: 05-15-2022 History and physical note Internal Medicine Admission History & Physical Patient: George Styles, 1970, [id number] Physician: Evan Bennett MD, PGY1, Pager #[phone], GM 4 service Date of face to [...] DAY SURGERY MAIN OR KIDNEY TRANSPLANT W/O HABEMATOLEL NEPHRECTOMY N/A 04/12/2020 Laterality: N/A; Surgeon: LU [...] erythema: Skin: No jaundice or rash Neuro: nuclear weapons mechanical specialist 3-7, 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 Strength grossly [...] dilation of the calyces may represent narrowing/partial [id number] ofthe ureter and mild hydronephrosis or sequela [...] Medicine [id number] documented in this encounter [facility] 05-15-2022 Emergency department Note Bladder scan with Dr Villatoro at bedside, 14ml noted [facility] 05-15-2022 Consult note Associated Order (s): [...] states he went to his local ED [place] and he was put on Flomax and he did improve. Pt states last night he was unable to void with severe right sided abd pain. Pt states nausea and no vomiting or fevers. Pt states he went back to [place] ED at 0100 and they placed a [...] orthotopic (N/A, 04/12/2020); and kidney transplant w/o eagle nephrectomy (N/A, 04/12/2020). 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 The eagle kidneys are progressively atrophic bilaterally compared to [...] of 06/14/2020 are no longer present. The eagle distal right ureter is decompressed beyond this [...] with surgical history for renal graft and eagle right urinary drainage, as a discrete ureteroneocystostomy is not identified, and the graft may be draining via a ureteroureterostomy. Urology consultation recommended. 3. The eagle kidneys are bilaterally atrophic, with right renal sinus calcifications consistent with nonobstructing right eagle renal calculi up to 6 mm. Normal [...] PGY-3, Department of Urologic Surgery Pager #: [phone] Associated attestation - Ryan Yepez MD - [...] future before surgical intervention --may continue flomax [facility] Work Phone: 05-15-2022 Emergency department Note Advised Dr Schneider concerning no urine output via matias catheter. [facility] 05-15-2022 Physician Emergency department Note ED Attending George Styles has a past medical history of Acute renal failure, CAD (coronary artery disease), Cirrhosis, Dialysis patient, End stage renal disease (06/01/2018), Essential hypertension, benign, Hepatic encephalopathy, History of blood transfusion, and Liver cirrhosis. Presents with a chief complaint of kidney stone and diagnosed Thursday and was sent home with [facility]. He went back to that [...] plan of care. Gian Villatoro MD 05/15/222003 [facility] Work Phone: 05-15-[address] Schneider made aware of only 30 ml urine via matias since arrival to room. [facility] 05-15-2022 Physician Emergency department Note dEPARTMENT [...] Laterality: N/A; Surgeon: LU Palma; Location: [facility] SAME DAY SURGERY MAIN OR KIDNEY TRANSPLANT W/O HABEMATOLEL NEPHRECTOMY N/A 04/12/2020 Laterality: N/A; Surgeon: LU Palma; Location: [facility] SAME DAY SURGERY MAIN OR [...] incorrections. Matt Schneider MD Resident 05/15/222030 [facility] Work Phone: 05-15-2022 Emergency department Note Pt arrives from [facility] with kidney stones. Pt states he had right lower abd pain and right flank pain with blood in his urine since Thursday. Pt states he went to his local ED [place] and he was put on Flomax and he did improve. Pt states last night he was unable to void with severe right sided abd pain. Pt states nausea and no vomiting or fevers. Pt states he went back to [place] ED at 0100 and they placed a matias and CT scan completed and multiple kidney stones noted. [facility] as he had liver and kidney transplant in 03/2020. [facility] 03-14-2022 History of Present illness Narrative [...] Required: No Mailing/Pickup Date: 03/17/2022 Shipping Address: [address] [place] [address] 179 Contact Info: Specialty ([place]) [phone] [facility] [phone] [facility] [phone] Raheem [phone] Bedside Delivery ([facility]) [phone] documented in this encounter [facility] 06-14-2021 History of Present illness Narrative [...] Goal Progress: Satisfactory Contact Info: Specialty (Yanci) [phone] Jakob [phone] [facility] [phone] Raheem [phone] Bedside Delivery ([facility]) [phone] [facility]: Call Information: Date [...] Location: Home Signature Required: Yes Shipping Address: [address] [place] [address] Contact Info: Specialty (Yanci) [phone] Jakob [phone] [facility] [phone] Raheem [phone] Bedside Delivery ([facility]) [phone] documented in this encounter [facility] Evaluation note Diagnosis FAYE (acute kidney injury)- Primary Acute kidney failure, unspecified Hydronephrosis due to obstruction of ureteral orifice Hydronephrosis due to obstruction of ureteral orifice FAYE (acute kidney injury) Acute kidney failure, unspecified [facility] Diagnosis Follow-up exam- Primary Unspecified follow-up examination [facility] Diagnosis Immunosuppressed status- Primary Unspecified disorder of immune mechanism Kidney replaced by transplant Liver replaced by transplant Abnormal blood chemistry Other abnormal blood chemistry High risk medication use Encounter for long-term (current) use of other medications Aftercare following organ transplant Liver transplant recipient [facility] Diagnosis Attention to nephrostomy- Primary [facility] Diagnosis Other hydronephrosis- Primary [facility] Diagnosis FAYE (acute kidney injury) Acute kidney failure, unspecified [facility] Diagnosis Other hydronephrosis- Primary -donor kidney transplant recipient Kidney replaced by transplant [facility] Diagnosis Other hydronephrosis [facility] Diagnosis 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) Encounter for screening for malignant neoplasm of prostate Special screening for malignant neoplasm of prostate [facility] Diagnosis Abnormal blood chemistry- Primary Other abnormal blood chemistry Liver transplant recipient Kidney replaced by transplant Immunosuppressed status Unspecified disorder of immune mechanism Aftercare following organ transplant [facility] Diagnosis Kidney replaced by transplant- Primary [facility] Diagnosis Immunosuppressed status- Primary Unspecified disorder of immune mechanism Kidney replaced by transplant Aftercare following organ transplant High risk medication use Encounter for long-term (current) use of other medications Other general symptoms and signs Abnormal blood chemistry Other abnormal blood chemistry Hypertension secondary to other renal disorders [facility] Diagnosis Histoplasmosis- Primary Histoplasmosis, unspecified [...] Fever, unspecified 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) Atherosclerosis 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) Atherosclerosis of aorta Obesity (BMI 30-39.9) DARLENE (obstructive sleep apnea) Obstructive sleep apnea (adult) (pediatric) Tremor Abnormal involuntary movements Immunocompromised (CMS/HCC) Unspecified immunity deficiency Primary hypertension (CMS/HCC) Unspecified essential hypertension Shortness of breath documented in this encounter [facility]* Diagnosis Pleural effusion [...] specified pre-operative examination [facility] Diagnosis Heart failure, diastolic, acute- Primary Acute diastolic heart failure [facility] Diagnosis Liver lesion- Primary Other specified disorders of liver Liver transplant recipient High risk medication use Encounter for long-term (current) use of other medications Therapeutic drug monitoring Encounter for therapeutic drug monitoring Immunocompromised Unspecified immunity deficiency [facility] Diagnosis Kidney replaced by transplant- Primary [facility] Consultation (Routine) - New Request Specialty Diagnoses / Procedures Referred By Deni edwards Referred To Contact Interventional Radiology Diagnoses Hydronephrosis due to obstruction of ureteral orifice Daya Saldana MD [address] [place] [address] Referral ID Status Reason Start Date Expiration Date V isits Requested Visits Authorized [id number] New Request 05/18/2022 06/12/2023 1 1 * Radiology (Emergency) - New Request Specialty Diagnoses / Procedures Referred By Contac t Referred To Contact Procedures US RENAL TRANSPLANT SCAN Daya Saldana MD [address] [place] [address] Referral ID Status Reason Start Date Expiration Date V isits Requested Visits Authorized [id number] New Request 05/16/2022 06/10/2023 1 1 * Consultation (Routine) - New Request Specialty Diagnoses / Procedures Referred By Contac t Referred To Contact Urology Diagnoses FAYE (acute kidney injury) Ryan Yepez MD [address] [address] [address] [place] [address] Referral ID Status Reason Start Date Expiration Date V isits Requested Visits Authorized [id number] New Request 05/16/2022 06/10/2023 1 1 * MRI/CAT Scan (Routine) - New Request Specialty Diagnoses / Procedures Referred By Contac t Referred To Contact Diagnoses FAYE (acute kidney injury) Procedures CT ABDOMEN/PELVIS WITHOUT CONTRAST CHG CT SCAN,ABDOMENT AND PELVIS,W/O CONTRAST Ryan Yepez MD [address] [address] [address] [place] [address] Referral ID Status Reason Start Date Expiration Date V isits Requested Visits Authorized [id number] New Request 05/16/2022 06/10/2023 1 1 * (Routine) - Pending Review Specialty Diagnoses / Procedures Referred By Contac t Referred To Contact Procedures PLATELET MONITORING PER PROTOCOL Daya Saldana MD [address] [place] [address] Referral ID Status Reason Start Date Expiration Date V isits Requested Visits Authorized [id number] Pending Review 05/15/2022 06/09/2023 1 1 * (Routine) - Pending Review Specialty Diagnoses / Procedures Referred By Contac t Referred To Contact Procedures DVT/VTE RISK ASSESSMENT Daya Saldana MD [address] [place] [address] Referral ID Status Reason Start Date Expiration Date V isits Requested Visits Authorized [id number] Pending Review 05/15/2022 06/09/2023 1 1 * (Routine) Specialty Diagnoses / Procedures Referred By Contac t Referred To Contact Evan Bennett MD [address] [place] [address] Referral ID Status Reason Start Date Expiration Date Visits Re quested Visits Authorized * (Routine) Specialty Diagnoses / Procedures Referred By Contac t Referred To Contact Evan Bennett MD [address] [place] [address] Referral ID Status Reason Start Date Expiration Date Visits Re quested Visits Authorized [facility] for referral (narrative)* Consultation (Routine) - New Request Specialty Diagnoses / Procedures Referred By Contac t Referred To Contact Sleep Medicine Diagnoses Kevin Conroy MD [address] [place] [address] Referral ID Status Reason Start Date Expiration Date V isits Requested Visits Authorized [id number] New Request 09/10/2023 10/04/2024 1 1 * MRI/CAT Scan (Routine) - New Request Specialty Diagnoses / Procedures Referred By Contac t Referred To Contact Diagnoses Histoplasmosis Procedures CT CHEST WITHOUT CONTRAST CHG DIAGNOSTIC COMPUTED TOMOGRAPHY THORAX W/O CNTRST Kevin Sage MD [address], [place] [address] Referral ID Status Reason Start Date Expiration Date V isits Requested Visits Authorized [id number] New Request 09/10/2023 10/04/2024 1 1 * Radiology (Routine) - New Request Specialty Diagnoses / Procedures Referred By Contac t Referred To Contact Procedures US RENAL TRANSPLANT SCAN Steve Latham MBBS [address] [place] [address] Referral ID Status Reason Start Date Expiration Date V isits Requested Visits Authorized [id number] New Request 08/29/2023 09/22/2024 1 1 * (Routine) - New Request Specialty Diagnoses / Procedures Referred By Contac t Referred To Contact Procedures PLATELET MONITORING PER PROTOCOL Steve Latham MBBS [address], [place] [address] Referral ID Status Reason Start Date Expiration Date V isits Requested Visits Authorized [id number] New Request 08/28/2023 09/21/2024 1 1 * (Routine) - New Request Specialty Diagnoses / Procedures Referred By Contac t Referred To Contact Procedures DVT/VTE RISK ASSESSMENT Steve Latham MBBS [address], [place] [address] Referral ID Status Reason Start Date Expiration Date V isits Requested Visits Authorized [id number] New Request 08/28/2023 09/21/[address] [facility] Instructions * Patient Instructions - Christin Elizabeth APRN-CNP - 10/19/2018 9:21 AM EST You should take an extra dose of the lactulose as needed so that you are having 3-4 bowel movementsdaily. You should start the chemical dependency counseling as soon as possible. If you have questions, call the transplant secondary social studies teacher Fidelina Pierson. in this encounter* Patient Instructions - Sophie Cary, SAMI - 10/12/2018 11:09 AM EST You have been seen in the pre-transplant evaluation clinic by Dr. Restrepo and Sophie Cary. Sophie Cary is your pre-change management coordinator she can be reached at [phone] at any time for questions during the pre-transplant process. Your evaluation is complete pendin. Abdominal ultrasound. 2. 6 minute walk test. 3. Cardiology evaluation. Additionally, your hospital cleaner will recommend testing to screen for coronary artery disease. This will be scheduled for you after your cardiology visit. 4. Your coordinator will be requesting record from your last dental visit, colonoscopy and EGD. 5. Please work to complete social work recommendations. Your secondary social studies teacher will be contacting you to follow up on your progress. 6. You have also been referred for a kidney transplant. An appointment will be scheduled for you sari evaluated in the kidney transplant clinic after you have satisfied requirements dictated by [employer]. Once your testing is complete, we [...] ___ Other Name MRN * Christin Elizabeth, CHEMICAL PROCESS ANALYST-KRAFT DIGESTER OPERATOR - 10/19/2018 9:00 AM EST Formatting of this note may be different from the original. History of Present Illness: Chief Complaint Patient presents with Follow-up Cirrhosis George Styles is a 48 y.o. male who presents to the [facility] today regarding his diagnosis/chief complaint(s) of Cirrhosis secondary to ETOH, with ESRD follows with Dr. Orr. Currently undergoing evaluation for liver/kidney transplant. Has been seen in transplant clinic for eval. Still undergoing pre testing. Diagnosed in April 2018. Last drink was immediately prior to hospital admission in [place] for ACLF. Hospital course notable for ARF [...] (human immunodeficiency virus infection); Hyperlipidemia; Hyperthyroidism; Hypothyroidism; MS (myocardial infarction); Migraine; DARLENE (obstructive sleep apnea); [...] 3. FU 12 weeks. in this encounter* MalloryRafiaFidelinaCRIS - 10/12/2018 10:00 AM EST Formatting of this note may be different from the original. Transplant Recipient Psychosocial Evaluation Demographics: Patient is a 48 y.o., White, Single, male, who presented for a liver and kidney transplant evaluation. Pt was AOx3. Transplant Process Maintenance Technician role/function was explained and reviewed. The patient was informed that the results of this assessment will be shared with the referring provider and the transplant team. The patient verbalized understanding of this information. The [facility] psychosocial assessment consent form has been explained to patient and has been signed. Pt is completing this evaluation with brother (David) in the Outpatient setting. SWK educated pt on the benefits of completing/filing advanced directives and resources were offered. Pt identifies with [employer] scientology. Pt confirms being a [place] Citizen. [...] has valid license, does not regularly drive (KRAFT DIGESTER OPERATOR recommends that he not to drive). [...] organ related disease etoh cirrohosis April in [facility] for thirty days. Pt reports [...] as well as referred him to pre change management coordinator. Pt and support demonstrated moderate understanding [...] Patient's brother David is a self employed excavating contractor. Additional support includes his other brother Tyshawn and his Mary live fifteen minutes away. Of note Mary is a metal control worker for a [employer] is available to assist plastic parts fabricator. He confirms being comfortable asking for help. [...] in 2010, he was employed by the [employer]. He has access to SSDI payment (SSDI starts in November) in regards to financial means pre/ post-transplant. Pt confirms (meeting bills currently, ) being able to meet daily needs. Patient's brother asking for additional information on community resources, food stamps and [place]. Refer him to pt.'s dialysis center and the [facility]. Hereports access to Medicaid. Pt. denies [...] court ordered treatment after a DUI charge [facility] in [place], court ordered treatment in 2001 and in [...] by patient from his primary medical provider- KRAFT DIGESTER OPERATOR patient was noted as attending an [...] new visit Date of service: 10/12/2018 -Referring grinder lap for today's consult: -Primary Care Provider: Zuly [...] EST Timed up and go 9.9 seconds Legal Librarian Left 52.8 pounds Right 44.9 pounds Waist circ 38.5 inches * Sophie Cary, RN - 10/12/2018 10:00 AM EST Formatting of this note may be different from the original. Patient George Styles ([id number]), accompanied by his brother, was seen on [...] any further questions. Sophie GUERINN, RN Liver Surface Grinder Etiology: ETOH HCC: No ETOH: Yes Last [...] cm2 VEGA index (continuity Vmax) 1.73 m/s VGEA (continuity VTI) 3.28 cm2 VEGA index (continuity [...] RUQ/LIVER/GB Yovani Orr MD [address] [address] Status Reason Specialty Diagnoses / Procedures Referred By Contact Referred To Contact New Request Diagnoses Cirrhosis of liver with ascites, unspecified hepatic cirrhosis type Procedures US ABDOMEN RUQ/LIVER/GB Yovani Orr MD [address] [address] Specialty Diagnoses / Procedures Referred By Contac t Referred To Contact Diagnoses FAYE (acute kidney injury) Procedures CT ABDOMEN/PELVIS WITHOUT CONTRAST CHG CT SCAN,ABDOMENT AND PELVIS,W/O CONTRAST Central Scheduling [address] [place] [address] Referral ID Status Reason Start Date Expiration Date V isits Requested Visits Authorized [id number] Pending Review 05/16/2022 06/10/2023 1 1 Specialty Diagnoses / Procedures Referred By Contac t Referred To Contact Diagnoses Other hydronephrosis Procedures FLUORO IMAGING FOR UROLOGY Ryan Yepez MD [address] [facility] [address] [place] [address] Referral ID Status Reason Start Date Expiration Date V isits Requested Visits Authorized [id number] New Request 07/07/2022 08/01/2023 1 1 Specialty Diagnoses / Procedures Referred By Contac t Referred To Contact Procedures DIRECT ADMIT REQUEST Steve Latham MBBS [address] [place] [address] Referral ID Status Reason Start Date Expiration Date V isits Requested Visits Authorized [id number] New Request 08/28/2023 09/21/2024 1 1 Specialty Diagnoses / Procedures Referred By Contac t Referred To Contact Radiology Diagnoses DARLENE (obstructive sleep apnea) Primary hypertension (CMS/HCC) Bilateral lower extremity edema Shortness of breath Procedures Echocardiogram 2D complete Zuly Bruno NP [address] [place] [address] Referral ID Status Reason Start Date Expiration Date Visits Requested Visits Authorized [id number] Incomplete Perform Procedure 01/06/2024 07/04/2024 1 1 Specialty Diagnoses / Procedures Referred By Contac t Referred To Contact Procedures US IMAGING REGIONAL ANESTHESIA Kehinde Gutierrez MD [address] [place] [address] Referral ID Status Reason Start Date Expiration Date V isits Requested Visits Authorized [id number] New Request 01/22/2024 02/15/2025 1 1 Specialty Diagnoses / Procedures Referred By Contac t Referred To Contact Cardiovascular Medicine Diagnoses Heart failure, diastolic, acute Kelvin Pacheco MD, MBBS [address] [place] [address] Referral ID Status Reason Start Date Expiration Date V isits Requested Visits Authorized [id number] New Request 01/20/2024 02/13/2025 1 1 Specialty Diagnoses / Procedures Referred By Contac t Referred To Contact Procedures US ABDOMEN LIVER DOPPLER US ABDOMEN LIVER TRANSPLANT DOPPLER Timothy Joseph MD [address] [facility] [address] [place] [address] Referral ID Status Reason Start Date Expiration Date V isits Requested Visits Authorized [id number] New Request 01/16/2024 02/09/2025 1 1 Specialty Diagnoses / Procedures Referred By Contac t Referred To Contact Procedures DVT/VTE RISK ASSESSMENT Kelvin Pacheco MD, MBBS [address] [place], [place] [address] Referral ID Status Reason Start Date Expiration Date V isits Requested Visits Authorized [id number] New Request 01/16/2024 02/09/2025 1 1 Specialty Diagnoses / Procedures Referred By Contac t Referred To Contact Procedures PLATELET MONITORING PER PROTOCOL Kelvin Pacheco MD, MBBS [address] [place] [address] Referral ID Status Reason Start Date Expiration Date V isits Requested Visits Authorized [id number] New Request 01/16/2024 02/09/2025 1 1 Referral ID Status Reason Start Date Expiration Date V isits Requested Visits Authorized [id number] New Request 01/16/2024 02/09/2025 1 1 Specialty Diagnoses / Procedures Referred By Contac t Referred To Contact Procedures ECG Kelvin Pacheco MD, MBBS [address] [place] [address] Referral ID Status Reason Start Date Expiration Date V isits Requested Visits Authorized [id number] New Request 01/16/2024 02/09/2025 1 1 Specialty Diagnoses / Procedures Referred By Contac t Referred To Contact Diagnoses Liver lesion Procedures MRI ABDOMEN WITH AND WITHOUT CONTRAST CHG MRI ABDOMEN W/O & W/CONTRAST MATERIAL Daisha Max, DO [address] [place] [address] Referral ID Status Reason Start Date Expiration Date V isits Requested Visits Authorized [id number] New Request 06/17/2024 07/12/2025 1 1 Advance Directives Documents on File Type Date Recorded Patient Steel Handler Expl anation Advance Directives and Living Will Power of Environmental Engineer Latest Code Status on File Code [...] Orr MD [address] [address] Status Reason Specialty Diagnoses / Procedures Referre d By Contact Referred To Contact Denied Diagnoses Alcoholic cirrhosis, unspecified whether ascites present Pre-transplant evaluation for liver transplant Procedures MRI ABDOMEN WITH CONTRAST MS MRI, ABDOMEN W/CONTRAST Yovani Orr MD [address] [address] Reason Comments Liver Recipient Evaluation Status Reason Specialty Diagnoses / Procedures Referred By Contact Referred To Contact New Request Transplant / Transplant Surgery Procedures PRE NEW PATIENT Yovani Orr MD [address] [address] Alfredito Restrepo MD [address] [place] [address] Reason Comments Reschedule Reason Comments Outside Medical Records Request Reason Comments Social Work Follow-up Reason Comments Kidney Stone Specialty Diagnoses / Procedures Referred By Contac t Referred To Contact Diagnoses Obstructing kidney stone, s/p kidney transplant 2019 Daya Saldana MD [address] [place] [address] [facility] [address] [place] [address] Referral ID Status Reason Start Date Expiration Date Visits Re quested Visits Authorized [id number] 1 1 Reason Comments Follow-up Reason Comments Kidney Recipient Follow-up Liver Recipient Follow-up Reason Comments Consult Reason Comments New Patient Hospital follow up Specialty Diagnoses / Procedures Referred By Contac t Referred To Contact Urology Diagnoses hosp fu with [address] prior Procedures NEW TO DOC/RET PATIENT Zuly Bruno CNP [address] [place] [address] Ryan Yepez MD [address] [facility] [address] [place] [address] Referral ID Status Reason Start Date Expiration Date Visits Re quested Visits Authorized [id number] Closed 06/27/2022 07/22/2023 1 1 Specialty Diagnoses / Procedures Referred By Contac t Referred To Contact Diagnoses FAYE (acute kidney injury) Procedures CT ABDOMEN/PELVIS WITHOUT CONTRAST CHG CT SCAN,ABDOMENT AND PELVIS,W/O CONTRAST Central Scheduling [address] [place] [address] Referral ID Status Reason Start Date Expiration Date V isits Requested Visits Authorized [id number] Pending Review 05/16/2022 06/10/2023 1 1 Reason Comments Follow-up Specialty Diagnoses / Procedures Referred By Contac t Referred To Contact Urology Diagnoses 1 week fu post NT clamp Procedures RETURN PATIENT Zuly Bruno CNP [address] [place] [address] Ryan Yepez MD [address] [facility] [address] [place] [address] Referral ID Status Reason Start Date Expiration Date Visits Requested Visits Authorized [id number] Authorized - 07/07/2022 08/01/2023 2 2 Specialty Diagnoses / Procedures Referred By Contac t Referred To Contact Diagnoses Other hydronephrosis Procedures FLUORO IMAGING FOR UROLOGY Ryan Yepez MD [address] [facility] [address] [place] [address] Referral ID Status Reason Start Date Expiration Date V isits Requested Visits Authorized [id number] New Request 07/07/2022 08/01/2023 1 1 Specialty Diagnoses / Procedures Referred By Contac t Referred To Contact Urology Diagnoses 1 week fu post NT clamp Procedures RETURN PATIENT Zuly Bruno, ROB [address] [place] [address] Ryan Yepez MD [address] [place] [address] [address] [place] [address] Referral ID Status Reason Start Date Expiration Date Visits Re quested Visits Authorized [id number] Closed 07/07/2022 08/01/2023 2 2 Reason Comments Liver Recipient Follow-up Reason Comments Kidney Recipient Follow-up Reason Comments Kidney Recipient Follow-up Specialty Diagnoses / Procedures Referred By Contac t Referred To Contact Diagnoses Kidney replaced by transplant Steve Latham MBBS [address] [place] [address] [facility] [address] [place] [address] Referral ID Status Reason Start Date Expiration Date Visits Re quested Visits Authorized [id number] 1 1 Specialty Diagnoses / Procedures Referred By Contac t Referred To Contact Diagnoses Pleural effusion on right PNEUMONIA- HX LIVER AND KIDNEY TRANSPLANT Kevin Sage MD [address] [place] [address] [facility] [address] [place] [address] Referral ID Status Reason Start Date Expiration Date Visits Re quested Visits Authorized [id number] 1 1 Reason Comments New Patient Specialty Diagnoses / Procedures Referred By Contdaniel t Referred To Contact Cardiovascular Medicine Diagnoses Heart failure, diastolic, acute Kelvin Pacheco MD, MBBS [address] [place] [address] Referral ID Status Reason Start Date Expiration Date Visits Requested Visits Authorized [id number] Authorized - 01/20/2024 02/13/2025 5 5 Reason Comments Liver Recipient Follow-up (unrecognized sect ion and content) No Status Records FoundNo Status Records FoundNo Status Records FoundNo Status Records FoundNo Status Records FoundNo Status Records Found INFORMATION SOURCE (unrecogn ized section and content) DATE CREATED AUTHOR 01/07/2020 [facility] DATE CREATED AUTHOR AUTHOR'S ORGANIZ ATION 01/27/2021 [facility] DATE CREATED AUTHOR AUTHOR'S ORGANIZ ATION 05/11/2023 [facility] DATE CREATED AUTHOR AUTHOR'S ORGANIZ ATION 04/19/2024 [facility] DATE CREATED AUTHOR AUTHOR'S ORGANIZ ATION 06/03/2024 [facility] DATE CREATED AUTHOR AUTHOR'S ORGANIZ ATION 06/20/2024 [facility] Care Teams (unrecognized sec tion and content) Human Resources Administrator Relationship Specialty Start Date End Date Zuly Bruno, ROB PCP - General 07/19/18 Comfort Rivera, [facility] [address] [facility] [address] [place] [address] Pharmacist Pharmacist 05/16/20 Angel Carpio RP,PharmD Pharmacist Pharmacist 05/16/20 Te Leigh [facility],PharmD Pharmacist Pharmacist 01/09/21 Human Resources Administrator Relationship Specialty Start Date End Date Zuly Bruno CNP PCP - General 07/19/18 Comfort Rivera, [facility] [address] [place] [address] Pharmacist Pharmacist 05/16/20 Angel Carpio, [facility],PharmD Pharmacist Pharmacist 05/16/20 Te Leigh [facility],PharmD Pharmacist Pharmacist 01/09/21 Human Resources Administrator Relationship Specialty Start Date End Date Zuly Bruno CNP PCP - General 07/19/18 Human Resources Administrator Relationship Specialty Start Date End Date Zuly Bruno CNP PCP - General 07/19/18 Human Resources Administrator Relationship Specialty Start Date End Date Zuly Bruno CNP PCP - General 07/19/18 Human Resources Administrator Relationship Specialty Start Date End Date Zuly Bruno CNP PCP - General 07/19/18 Human Resources Administrator Relationship Specialty Start Date End Date Zuly Bruno CNP PCP - General 07/19/18 Human Resources Administrator Relationship Specialty Start Date End Date Zuly Bruno CNP PCP - General 07/19/18 Human Resources Administrator Relationship Specialty Start Date End Date Zuly Bruno CNP PCP - General 07/19/18 Human Resources Administrator Relationship Specialty Start Date End Date Zuly Bruno CNP PCP - General 07/19/18 Human Resources Administrator Relationship Specialty Start Date End Date Zuly Bruno CNP PCP - General 07/19/18 Human Resources Administrator Relationship Specialty Start Date End Date Zuly Bruno CNP PCP - General 07/19/18 Human Resources Administrator Relationship Specialty Start Date End Date Zuly Bruno CNP PCP - General 07/19/18 Human Resources Administrator Relationship Specialty Start Date End Date Zuly Bruno CNP PCP - General 07/19/18 Human Resources Administrator Relationship Specialty Start Date End Date BrianlatishaZuly tipton CNP PCP - General 07/19/18 Human Resources Administrator Relationship Specialty Start Date End Date Zuly Bruno CNP PCP - General 07/19/18 Human Resources Administrator Relationship Specialty Start Date End Date Zuly Bruno CNP PCP - General 07/19/18 Evan White DO [facility] [place] [address] Infectious Disease Infectious Disease 09/09/23 Human Resources Administrator Relationship Specialty Start Date End Date LexielydialatishaZuly tipton ROB PCP - General 07/19/18 Evan White DO [facility] [place] [address] Infectious Disease Infectious Disease 09/09/23 Human Resources Administrator Relationship Specialty Start Date End Date Zuly Bruno CNP PCP - General 07/19/18 Evan White DO [facility] [employer] [place] [address] Infectious Disease Infectious Disease 09/09/23 Human Resources Administrator Relationship Specialty Start Date End Date Momo Verdugo MD PCP - General Family Medicine 05/21/23 Human Resources Administrator Relationship Specialty Start Date End Date Momo Verdugo MD PCP - General Family Medicine 05/21/23 Human Resources Administrator Relationship Specialty Start Date End Date Momo Verdugo MD PCP - General Family Medicine 05/21/23 Human Resources Administrator Relationship Specialty Start Date End Date Zuly Bruno CNP PCP - General 07/19/18 [facility] [place] [address] Infectious Disease Infectious Disease 09/09/23 Human Resources Administrator Relationship Specialty Start Date End Date Zuly Bruno CNP PCP - General 07/19/18 Evan White DO [address] [place], [place] [id number] Infectious Disease Infectious Disease 09/09/23 Human Resources Administrator Relationship Specialty Start Date End Date Zuly Bruno CNP PCP - General 07/19/18 Evan White DO [address] [place] [address] Infectious Disease Infectious Disease 09/09/23 Human Resources Administrator Relationship Specialty Start Date End Date Zuly Bruno CNP PCP - General 07/19/18 Evan White DO [address] [place] [address] Infectious Disease Infectious Disease 09/09/23 Human Resources Administrator Relationship Specialty Start Date End Date Zuly Bruno CNP PCP - General 07/19/18 Evan White DO [address] [place] [address] Infectious Disease Infectious Disease 09/09/23 Human Resources Administrator Relationship Specialty Start Date End Date Zuly Bruno CNP PCP - General 07/19/18 Human Resources Administrator Relationship Specialty Start Date End Date Zuly Bruno CNP PCP - General 07/19/18 Human Resources Administrator Relationship Specialty Start Date End Date Zuly Bruno CNP PCP - General 07/19/18 Human Resources Administrator Relationship Specialty Start Date End Date Zuly Bruno CNP PCP - General 07/19/18 Human Resources Administrator Relationship Specialty Start Date End Date Zuly Bruno CNP PCP - General 07/19/18 Human Resources Administrator Relationship Specialty Start Date End Date Zuly Bruno CNP PCP - General 07/19/18 Scheduled Active and Recently Administ ered Medications (unrecognized section and content) Medication Order 05/18/2022 05/19/2022 05/20/2022 allopurinol (ZYLOPRIM) tablet 100 mg 100 mg, Oral, DAILY, First dose (after last modification) on Thu05/17/22 at 0900, Until Discontinued 806 (Given - Provider: Mel Hampton RN) 08 (Given - Provider: Josey Braun, SAMI) 930 [...] Hampton RN)1999 (Given - Provider: Carolyn Isaac, RN) 08 (Given - Provider: Josey Braun, RN)2058 (Given - Provider: Carolyn Isaac, RN) 0742 (Given - Provider: Leon Cook RN)1999 (Canceled Entry - Provider: System Discharge - Comment: Automatically canceled at discontinue of medication order) polyethylene glycol (MIRALAX) packet 17 g 17 g, Oral, EVERY 12 HOURS, First dose (after last modification) on Thu05/16/22 at 0900, Until Discontinued 0810 (Not Given - Provider: Mle Hampton RN - Reason: Patient with symptoms)195 [...] Carolyn Isaac RN)1807 (Restarted - Provider: Carolyn sIaac RN)1822 (Paused - Provider: Carolyn Isaac RN)1823 [...] - Reason: Transfer to a Procedural area)141 ([facility] Unhold - Provider: Automatic Transfer)2008 (Given [...] 08 (Given - Provider: Terra Heart RN)105 ([facility] Hold - Provider: Automatic Transfer - Reason: Transfer to a Procedural area)141 ([facility] Unhold - Provider: Automatic Transfer)2008 (Given - Provider: Tati Ahmadi RN) 919 (Given - Provider: Terra Heart RN) Sulfamethoxazole-trime thoprim (BACTRIM DS) 800-160 MG per tablet 1 tablet 1 tablet, Oral, THREE TIMES WEEKLY (Once per day on Thursday), First dose on Thu01/18/24 at 0900, Until Discontinued 08 (Given - Provider: Terra Heart RN)1052 ([facility] Hold - Provider: Automatic Transfer - Reason: Transfer to a Procedural area)1413 ([facility] Unhold - Provider: Automatic Transfer) tacrolimus (PROGRAF) susp 0.2 mg 0.2 mg, Oral, CUSTOM FREQUENCY (Once per day on Thursday), First dose on 01/16/24 at 0900, Until Discontinued, Caution check route of administration. For sublingual administration, place liquid under tongue and allow absorption. 08 (Given - Provider: Erica Gudino RN) 1052 ([facility] Hold - Provider: Automatic Transfer - Reason: Transfer to a Procedural area)141 ([facility] Unhold - Provider: Automatic Transfer) 922 (Given - Provider: Terra Heart RN) Tamsulosin HCl (FLOMAX) capsule 0.4 mg 0.4 mg, Oral, DAILY, First dose on 01/16/24 at 0900, Until Discontinued, Slow release product. Do not chew or crush 42 (Given - Provider: Erica Gudino RN) 08 (Given - Provider: Terra Heart RN)105 ([facility] Hold - Provider: Automatic Transfer - Reason: Transfer to a Procedural area)141 ([facility] Unhold - Provider: Automatic Transfer) 09 (Given [...] 0841 (Given - Provider: Terra Heart RN)1053 ([facility] Hold - Provider: Automatic Transfer - Reason: Transfer to a Procedural area)1414 ([facility] Unhold - Provider: Automatic Transfer) 0920 [...] from all sources in 24 hours. 1053 ([facility] Hold - Provider: Automatic Transfer - Reason: Transfer to a Procedural area)1414 ([facility] Unhold - Provider: Automatic Transfer)1806 (Given [...] 200-200 mg and Simethicone 20 mg) 1053 ([facility] Hold - Provider: Automatic Transfer - Reason: Transfer to a Procedural area)1414 ([facility] Unhold - Provider: Automatic Transfer) guaiFENesin (ROBITUSSIN) oral solution 400 mg 400 mg, Oral, EVERY 6 HOURS NEEDED, Starting on 01/16/24 at 0202, Until 01/23/24 at 1752, Cough, Congestion 1053 ([facility] Hold - Provider: Automatic Transfer - Reason: Transfer to a Procedural area)1414 ([facility] Unhold - Provider: Automatic Transfer) HYDROmorphone [...] 0016, Until 01/23/24 at 1752, Insomnia 1053 ([facility] Hold - Provider: Automatic Transfer - Reason: Transfer to a Procedural area)1414 ([facility] Unhold - Provider: Automatic Transfer)2355 (Given - Provider: Tati Ahmadi, SAMI) Ondansetron (ZOFRAN) tablet 4 mg(Linked Group 1) 4 mg, Oral, EVERY 6 HOURS NEEDED, Starting on 01/16/24 at 0202, Until 01/23/24 at 1752, Nausea / Vomiting, 1st line for Nausea/Vomiting 1053 ([facility] Hold - Provider: Automatic Transfer - Reason: Transfer to a Procedural area)1414 ([facility] Unhold - Provider: Automatic Transfer)1809 (See Alternative - Provider: Terra Heart, SAMI) 0430 (See Alternative - Provider: Tati Ahmadi, SAMI)1415 (Given - Provider: Terra Heart, SAMI) Ondansetron 4mg/2ml (ZOFRAN) injection 4 mg(Linked Group 1) 4 mg, Intravenous, EVERY 6 HOURS NEEDED, Starting on 01/16/24 at 0202, Until 01/23/24 at 1752, Nausea / Vomiting, 1st line for Nausea/Vomiting 1053 ([facility] Hold - Provider: Automatic Transfer - Reason: Transfer to a Procedural area)1414 ([facility] Unhold - Provider: Automatic Transfer)1809 (Given [...] 01/23/24 at 1752, Constipation 1st Line 1053 ([facility] Hold - Provider: Automatic Transfer - Reason: Transfer to a Procedural area)1414 ([facility] Unhold - Provider: Automatic Transfer) Prochlorperazine (COMPAZINE) injection 10 mg 10 mg, Intravenous, EVERY 6 HOURS NEEDED, Starting on 01/17/24 at 1538, Until 01/23/24 at 1752, Nausea / Vomiting, Refractory Nausea Vomiting, For IV route: dilute dose with 10mL normal saline and give by slow IV push at a rate of 5mg/min. Maximum of 40mg/day. 1053 ([facility] Hold - Provider: Automatic Transfer - Reason: Transfer to a Procedural area)1414 ([facility] Unhold - Provider: Automatic Transfer)2349 (Given [...] BE BASED ON THE PRIMARY CLINICAL RECORDS. [employer] [facility]. provides no warranty or guarantee of the accuracy or completeness of information in this document.
[2024-07-11 06:57] LABS: Basophils Percent Auto 0.4 % (0.2-2.0); Eosinophils Absolute Auto 0.1 10^3/uL (0.0-0.7); Eosinophils Percent Auto 1.7 % (0.9-7.0); Hematocrit 46.2 % (42.0-54.0); Hemoglobin 15.4 g/dL (14.0-18.0); Immature Granulocytes Abs Auto 0.01 10^3/uL (0.00-0.03); Immature Granulocytes Pct Auto 0.2 % (0.0-0.5); Lymphocytes Absolute Auto 1.5 10^3/uL (1.2-3.8); Lymphocytes Percent Auto 28.1 % (20.5-60.0); Mean Corpuscular HGB Conc 33.3 g/dL (29.9-35.2); Mean Corpuscular Hemoglobin 29.6 pg (25.9-34.0); Mean Corpuscular Volume 88.8 fL (80.0-94.0); Mean Platelet Volume 9.9 fL (9.5-13.5); Monocytes Absolute Auto 0.5 10^3/uL (0.3-0.8); Monocytes Percent Auto 9.5 % (1.7-12.0); Neutrophils Absolute Auto 3.2 10^3/uL (1.4-6.5); Neutrophils Percent Auto 60.1 % (43.0-75.0); Platelet Count 219 10^3/uL (150-450); Red Cell Distribution Width 12.1 % (11.0-15.0); White Blood Count 5.4 10^3/uL (4.0-11.0)
[2024-07-11 07:13] LABS: Creatinine Urine Random 115.26 mg/dL (20.00-300.00); Protein Creatinine Ratio Urine 0.22; Total Protein Urine Random 25.2 mg/dL (<=11.9)
[2024-07-11 07:15] LABS: Alanine Aminotransferase 31 U/L (16-63); Albumin Level 3.9 g/dL (3.4-5.0); Alkaline Phosphatase 107 U/L (46-116); Anion Gap 11.8; Aspartate Amino Transferase 18 U/L (15-37); BUN Creatinine Ratio 19.1; Bilirubin Direct 0.2 mg/dL (0.0-0.2); Bilirubin Total 1.1 mg/dL (0.2-1.0); Calcium 9.5 mg/dL (8.5-10.1); Carbon Dioxide 28.1 mmol/L (21.0-32.0); Chloride 105 mmol/L (98-107); Estimated GFR (African America >60 (>=60); Estimated GFR (Non-African Ame >60 (>=60); Gamma Glutamyl Transpeptidase 23 U/L (15-85); Glucose 104 mg/dL (74-106); Magnesium 1.9 mg/dL (1.8-2.4); Phosphorus 3.3 mg/dL (2.6-4.7); Potassium 3.9 mmol/L (3.5-5.1); Sodium 141 mmol/L (136-145)
[2024-07-13 20:07] LABS: Tacrolimus (FK506), Blood 3.6 ng/mL (2.0-20.0)
== END 2024-07-11 06:36 | disposition home or self-care (01) ==
LOC: LAB 06:36
PROVIDERS: PCP Nurse Practitioner
DX: R79.9 Abnormal finding of blood chemistry, unspecified (principal); Z94.0 Kidney transplant status; Z94.4 Liver transplant status; Z48.298 Encounter for aftercare following other organ transplant
CPT/HCPCS: 36415; 80048; 80197; 82042; 82247; 82248; 82570; 82977; 83735; 84075; 84100; 84156; 84450; 84460; 85025

== ENCOUNTER 2024-07-18 06:31 | Outpatient (OUT) | payer MEDICARE, MEDICAID, SELFPAY ==
--- OUTSIDE RECORDS SUMMARY | 2024-07-18 06:39 | XMS_ITS | CCD ---
Author Organization [facility] Care Team Providers [employer] Tutor Name Role Phone Kiana Zuly Unavailable Unavailable [...] Unavailable AICHHOLZ, ZULY Primary Care Unavailable Aichholz [facility] Primary Care Provider Miguel RPComfort Unavailable [phone] Shirin [facility],PharmD, Angel Unavailable Unavailab makayla Leigh [facility],PharmD, Te Unavailable Unavai lable Aicholz CLIENT DEVELOPMENT DIRECTOR Primary Care Provider CHANDUC, DR BURCH Admitting Unavailable MISC, DR BURCH Consulting Unavailable AICHHOLZ, CLIENT DEVELOPMENT DIRECTOR ZULY Primary Care Unavailable MISC, DR BURCH Attending Unavailable MISC, DR BURCH Admitting Unavailable MISC, DR BURCH Consulting Unavailable AICHHOLZ, CLIENT DEVELOPMENT DIRECTOR ZULY Primary Care Unavailable MISC, DR BURCH Attending Unavailable ARCELIA PIZARRO Consulting Unavailable KE BURNHAM Attending Unavailable KE BURNHAM Admitting Unavailable BARBARA, DR MÓNICA Munoz Consulting Unavailable AICHHOLZ, CLIENT DEVELOPMENT DIRECTOR ZULY Primary Care Unavailable KE BURNHAM Consulting Unavailable MISC, DR BURCH Consulting Unavailable MISC, DR BURCH Attending Unavailable AICHHOLZ, CLIENT DEVELOPMENT DIRECTOR ZULY Primary Care Unavailable MISC, DR BURCH Admitting Unavailable MISC, DR BURCH Consulting Unavailable MISC, DR BURCH Attending Unavailable AICHHOLZ, CLIENT DEVELOPMENT DIRECTOR ZULY Primary Care Unavailable MISC, DR BURCH Admitting Unavailable MISC, DR BURCH Consulting Unavailable AICHHOLZ, CLIENT DEVELOPMENT DIRECTOR ZULY Primary Care Unavailable MISC, DOCTOR Admitting Unavailable MISC, DR DOCTOR Attending Unavailable MELINDA, DR GEORGE Munoz Consulting Unavailable MELINDA, DR GEORGE Munoz Attending Unavailable AICHHOLZ, CLIENT DEVELOPMENT DIRECTOR ZULY Primary Care Unavailable MELINDA, DR GEORGE Munoz Admitting Unavailable NAUN ., KE Consulting Unavailable MIRANDA, LYNDSAY Consulting Unavailable MELINDA, DR GEORGE Munoz Consulting Unavailable NAUN ., KE Attending Unavailable NAUN ., KE Admitting Unavailable AICHHOLZ, CLIENT DEVELOPMENT DIRECTOR ZULY Primary Care Unavailable NAUN ., KE Consulting Unavailable GIAN HERRING Consulting Unavailable AICHHOLZ, CLIENT DEVELOPMENT DIRECTOR ZULY Consulting Unavailable AICHHOLZ, CLIENT DEVELOPMENT DIRECTOR ZULY Attending Unavailable AICHHOLZ, CLIENT DEVELOPMENT DIRECTOR ZULY Admitting Unavailable AICHHOLZ, CLIENT DEVELOPMENT DIRECTOR ZULY Primary Care Unavailable MISC, DR DOCTOR Consulting Unavailable MISC, DOCTOR Admitting Unavailable MISC, DOCTOR Attending Unavailable AICHHOLZ, CLIENT DEVELOPMENT DIRECTOR ZULY Primary Care Unavailable MISC, DR DOCTOR Consulting Unavailable MISC, DR DOCTOR Attending Unavailable MISC, DOCTOR Admitting Unavailable AICHHOLZ, CLIENT DEVELOPMENT DIRECTOR ZULY Primary Care Unavailable MISC, DOCTOR Admitting Unavailable MISC, DOCTOR Consulting Unavailable MISC, DR DOCTOR Attending Unavailable AICHHOLZ, CLIENT DEVELOPMENT DIRECTOR ZULY Primary Care Unavailable MISC, DOCTOR Admitting Unavailable MISC, DR DOCTOR Consulting Unavailable AICHHOLZ, CLIENT DEVELOPMENT DIRECTOR ZULY Primary Care Unavailable MISC, DR DOCTOR Attending Unavailable MISC, DOCTOR Admitting Unavailable MISC, DOCTOR Consulting Unavailable AICHHOLZ, CLIENT DEVELOPMENT DIRECTOR ZULY Primary Care Unavailable MISC, DR DOCTOR Attending Unavailable AICHHOLZ, CLIENT DEVELOPMENT DIRECTOR ZULY Consulting Unavailable AICHHOLZ, CLIENT DEVELOPMENT DIRECTOR ZULY Attending Unavailable AICHHOLZ, CLIENT DEVELOPMENT DIRECTOR ZULY Admitting Unavailable AICHHOLZ, CLIENT DEVELOPMENT DIRECTOR ZULY Primary Care Unavailable DR MÓNICA JIMENEZ Consulting Unavailable Aichholz [facility], Zuly Primary Care Provider Evan White DO Unavailable [facility], Zuly Primary Care Provider Tran White DOs A Unavailable [phone] Momo Verdugo MD Primary Care Provider [phone] Aichholz CLIENT DEVELOPMENT DIRECTOR, Zuly Primary Care Provider AICHHOLZ, ZULY Attending [...] adverse reactions (disorder) 8 [facility] Repository (20 sources) Shellfish-Derive d Products Propensity to adverse reactions to drug 9 [facility] (1 source) Shellfish Drug allergy (disorder) [facility] Repository Medications Current Medications Medication [...] 1 capsule by mouth once daily b tpvobyl-T-qzypb acid (NEPHROCAPS) 1 MG capsule Take 1 [...] ankle pain. 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 White - [phone] Transplant Ne[facility] - [phone] Each 09/10/2023 01/19/2024 Discontinued (Medication Reconciliation (suppress cancel msg)) Start: 09-10-2023 CUSTOM MEDICAT ION Labs to be obtained: 1- Tacrolimus level, trough - collect twice weekly until 09/24/23, then weekly until 10/08/23, them once every two weeks there after. 2- Itraconazole level - obtain once between 09/14-09/18. 3- Chem 6 - Obtain weekly while on itraconazole Fax results to: Dr. Cindy Moran [phone] Transplant [facility] - [phone] Each 0 09/10/2023 Active Diatrizoate (1 [...] (ROXICODONE) tablet 10 mg polyethylene glycol 3350 35946 mg powder for oral solution (20 sources) [...] Start: 08-20-2022 take 1 capsule by mo [facility] every twelve hours Tacrolimus (PROGRAF) 0.5 MG [...] Coronary arteriosclerosis; Translations: [Atherosclerotic heart disease of [place] coronary artery without angina pectoris] Onset: 3 [...] sources) Taking high risk medication; Translations: [Other assisted (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] Episodic Other aftercare (1 [...] Episodic Other aftercare (2 sources) Other terminal worker (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; Translations: [OTH [facility] 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 THERAPY] Onset: 07-06-2022 Episodic Other aftercare (1 source) group home (current) use of aspirin; Translations: [[facility] CURRENT USE OF ASPIRIN] Onset: 06-20-2022 Episodic [...] transplant] Onset: 08-28-2023 Unclassified (1 source) Other assisted (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; Translations: [Other assisted (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] Onset: 08-28-2023 Unclassified (1 [...] Patient informed and he verbalized understanding. [facility] Office Visiton 05-13-2024 Follow-up visit [id number] George Styles 1970 M Date Provider Department [facility] Family History Problem Relation Age of Onset Coronary artery disease Mother Coronary artery disease Father Family Status - Relation Status Age at Mother Father Level of Service:77366 NC OFFICE/OUTPATIENT ESTABLISHED LOW MDM 20 MIN Reason for Visit and Comments: Follow-up [736306] - Yearly follow up [facility] B-TYPE NATRIURETIC PEPTIDE ( BRAIN)on 02-26-2024 Interpretation and review of laboratory results [facility] Natriuretic peptide B (Bld) [Mass/Vol] 72 pg/mL 0 - 100 pg/mL [facility] Natriuretic peptide B (Bld) [Mass/Vol] 72 pg/mL Normal 0-100 [facility] Comment on above: Performed By: #### B JUKE BOX MECHANIC ####[facility] (DEFAULT)[address] [place] [address] CHEM 6 (LYTES, BUN CREA)on 0 02-26-2024 Anion gap [Moles/Vol] 13 mmol/L 7 - 17 mmol/L [facility] Chloride [Moles/Vol] 107 mmol/L 98 - 10 8 mmol/L [facility] CO2 [Moles/Vol] 25 mmol/L 21 - 31 mmol/L [facility] Creatinine [Mass/Vol] 1.23 mg/dL 0.70 - 1.30 mg/dL [facility] eGFR, CKD-EPI, Male 70 - PINF [facility] Comment on above: Reported eGFR is bas ed on the CKD-EPI 2020 equation using creatinine, age, and sex. Potassium [Moles/Vol] 4.2 mmol/L 3.5 - 5.0 mmol/L [facility] Sodium [Moles/Vol] 141 mmol/L 135 - 145 mmol/L [facility] Urea nitrogen [Mass/Vol] 17 mg/dL 7 - 25 mg/dL [facility] Urea nitrogen/Creatinine [Mass ratio] 14 mg/mg [facility] Anion gap [Moles/Vol] 13 mmol/L Normal 7-17 [facility] Comment on above: Performed By: #### C HM6 ####[facility] (DEFAULT)[address] [place] [address] Chloride [Moles/Vol] 107 mmol/L Normal 98-108 [facility] Comment on above: Performed By: #### C HM6 ####[facility] (DEFAULT)[address] [place] [address] CO2 [Moles/Vol] 25 mmol/L Normal 21-31 [facility] Comment on above: Performed By: #### C HM6 ####[facility] (DEFAULT)[address] [place] [address] Creatinine [Mass/Vol] 1.23 mg/dL Normal 0.70-1.30 [facility] Comment on above: Performed By: #### C HM6 ####[facility] (DEFAULT)[address] [place] [address] GFR/1.73 sq M.predicted among non-blacks MDRD (S/P/Bld) [Vol rate/Area] 70 mL/min/{1.73_m2} Normal >=60 [facility] Comment on above: Result Comment: Repo rted eGFR is based on the CKD-EPI 2020 equation using creatinine, age, and sex. Performed By: #### C HM6 ####[facility] (DEFAULT)[address] [place] [address] Potassium [Moles/Vol] 4.2 mmol/L Normal 3.5-5.0 [facility] Comment on above: Performed By: #### C HM6 ####[facility] (DEFAULT)[address] [place] [address] Sodium [Moles/Vol] 141 mmol/L Normal 135-145 [facility] Comment on above: Performed By: #### C HM6 ####[facility] (DEFAULT)[address] [place] [address] Urea nitrogen [Mass/Vol] 17 mg/dL Normal 7-25 [facility] Comment on above: Performed By: #### C HM6 ####[facility] (DEFAULT)[address] [place] [address] Urea nitrogen/Creatinine [Mass ratio] 14 mg/mg Normal [facility] Comment on above: Performed By: #### C HM6 ####[facility] (DEFAULT)[address] [place] [address] CBC,PLATELETSon 01-23-2024 Erythrocyte distribution width (RBC) [Ratio] 14.2 % 10.9 - 14.3 % [facility] Hematocrit (Bld) [Volume fraction] 37.0 % Low 39.6 - 48.8 % [facility] Hemoglobin (Bld) [Mass/Vol] 12.0 g/dL Low 13.4 - 16.8 g/dL [facility] Interpretation and review of laboratory results Abnormal [facility] MCH (RBC) [Entitic mass] 28.6 pg 26.1 - 33.3 pg [facility] MCHC (RBC) [Mass/Vol] 32.4 g/dL 31.9 - 36.5 g/dL [facility] MCV (RBC) [Entitic vol] 88.1 fL 79.0 - 94.5 fL [facility] Platelet mean volume (Bld) [Entitic vol] 10.4 fL 8.7 - 12.3 fL [facility] Platelets (Bld) [#/Vol] 170 10*3/uL 146 - 337 K/uL [facility] RBC (Bld) [#/Vol] 4.20 10*6/uL Low [facility] WBC (Bld) [#/Vol] 3.70 10*3/uL Low 3.73 - 10. 10 K/uL [facility] Hematocrit (Bld) [Volume fraction] 37.0 % Low 39.6-48.8 [facility] Comment on above: Performed By: #### [facility] ####[facility] (DEFAULT)[address] [place] [address] Hemoglobin (Bld) [Mass/Vol] 12.0 g/dL Low 13.4-16.8 [facility] Comment on above: Performed By: #### [facility] ####[facility] (DEFAULT)[address] [place] [address] MCV (RBC) [Entitic vol] 88.1 fL Normal 79.0-94.5 [facility] Comment on above: Performed By: #### [facility] ####[facility] (DEFAULT)[address] [place] [address] Mean Cell Hgb 28.6 pg Normal 26.1-33.3 [facility] Comment on above: Performed By: #### H EMOGC ####[facility] (DEFAULT)[address] [place] [address] Mean Cell Hgb Conc 32.4 g/dL Normal 31.9-36.5 [facility] Comment on above: Performed By: #### H EMOGC ####[facility] (DEFAULT)[address] [place] [address] Platelet mean volume (Bld) [Entitic vol] 10.4 fL Normal 8.7-12.3 [facility] Comment on above: Performed By: #### H EMOGC ####[facility] (DEFAULT)[address] [place] [address] Platelets (Bld) [#/Vol] 170 10*3/uL Normal 146-337 [facility] Comment on above: Performed By: #### H EMOGC ####[facility] (DEFAULT)[address] [place] [address] RBC (Bld) [#/Vol] 4.20 10*6/uL Low 4.38-5.83 [facility] Comment on above: Performed By: #### H EMOGC ####[facility] (DEFAULT)[address] [place] [address] RBC Distribution 14.2 % Normal 10.9-14.3 [facility] Comment on above: Performed By: #### H EMOGC ####[facility] (DEFAULT)[address] [place] [address] WBC (Bld) [#/Vol] 3.70 10*3/uL Low 3.73-10.10 [facility] Comment on above: Performed By: #### H EMOGC ####[facility] (DEFAULT)[address] [place] [address] CHEM 7 (LYTES,BUN,CREA,GLUC) on 01-23-2024 Anion gap [Moles/Vol] 14 mmol/L 7 - 17 mmol/L [facility] Chloride [Moles/Vol] 105 mmol/L 98 - 10 8 mmol/L [facility] CO2 [Moles/Vol] 25 mmol/L 21 - 31 mmol/L [facility] Creatinine [Mass/Vol] 1.32 mg/dL High 0.70 - 1.30 mg/dL [facility] eGFR, CKD-EPI, Male 65 - PINF [facility] Comment on above: Reported eGFR is bas ed on the CKD-EPI 2020 equation using creatinine, age, and sex. Glucose [Mass/Vol] 94 mg/dL 70 - 99 mg/dL [facility] Osmolality Calc [Osmolality] 296 [facility] Potassium [Moles/Vol] 3.8 mmol/L 3.5 - 5.0 mmol/L [facility] Sodium [Moles/Vol] 140 mmol/L 135 - 145 mmol/L [facility] Urea nitrogen [Mass/Vol] 23 mg/dL 7 - 25 mg/dL [facility] Urea nitrogen/Creatinine [Mass ratio] 17 mg/mg [facility] Anion gap [Moles/Vol] 14 mmol/L Normal 7-17 [facility] Comment on above: Performed By: #### NATHANIEL RAMÍREZ, HFP ####[facility] (DEFAULT)[address] [place] [address] Chloride [Moles/Vol] 105 mmol/L Normal 98-108 [facility] Comment on above: Performed By: #### NATHANIEL RAMÍREZ, HFP ####[facility] (DEFAULT)[address] [place] [address] CO2 [Moles/Vol] 25 mmol/L Normal 21-31 [facility] Comment on above: Performed By: #### NATHANIEL RAMÍREZ, HFP ####[facility] (DEFAULT)[address] [place] [address] Creatinine [Mass/Vol] 1.32 mg/dL High 0.70-1.30 [facility] Comment on above: Performed By: #### M NATHANIEL BLOOM, HFP ####[facility] (DEFAULT)[address] [place] [address] GFR/1.73 sq M.predicted among non-blacks MDRD (S/P/Bld) [Vol rate/Area] 65 mL/min/{1.73_m2} Normal >=60 [facility] Comment on above: Result Comment: Repo rted eGFR is based on the CKD-EPI 2020 equation using creatinine, age, and sex. Performed By: #### M NATHANIEL BLOOM, HFP ####[facility] (DEFAULT)[address] [place] [address] Glucose [Mass/Vol] 94 mg/dL Normal 70-99 [facility] Comment on above: Performed By: #### M NATHANIEL BLOOM, HFP ####[facility] (DEFAULT)[address] [place] [address] Osmolality [Osmolality] 296 mosm/kg Normal 278-305 [facility] Comment on above: Performed By: #### M NATHANIEL BLOOM, HFP ####[facility] (DEFAULT)[address] [place] [address] Potassium [Moles/Vol] 3.8 mmol/L Normal 3.5-5.0 [facility] Comment on above: Performed By: #### M NATHANIEL BLOOM, HFP ####[facility] (DEFAULT)[address] [place] [address] Sodium [Moles/Vol] 140 mmol/L Normal 135-145 [facility] Comment on above: Performed By: #### M NATHANIEL BLOOM, HFP ####[facility] (DEFAULT)[address] [facility] [place] [address] Urea nitrogen [Mass/Vol] 23 mg/dL Normal 7-25 [facility] Comment on above: Performed By: #### NATHANIEL RAMÍREZ, HFP ####[facility] (DEFAULT)[address] [facility] [place] [address] Urea nitrogen/Creatinine [Mass ratio] 17 mg/mg Normal [facility] Comment on above: Performed By: #### M NATHANIEL BLOOM, HFP ####[facility] (DEFAULT)[address] [facility] [place] [address] GLUCOSE POCon 01-23-2024 Glucose [Mass/Vol] 88 mg/dL 70 - 99 mg/dL [facility] POC Sample Type [facility] Test performed at ad dress of the patient encounter. [facility] Glucose [Mass/Vol] 191 mg/dL High 70 - 99 mg/dL [facility] Interpretation and review of laboratory results Abnormal [facility] POC Sample Type CAPBL [facility] Test performed at ad dress of the patient encounter. [facility] HEPATIC FUNCTION PANELon Albumin [Mass/Vol] 3.9 g/dL 3.5 - 5.0 g/dL [facility] ALP [Catalytic activity/Vol] 83 U/L 32 - 126 U/L [facility] ALT [Catalytic activity/Vol] 9 U/L Low 10 - 52 U/L [facility] AST [Catalytic activity/Vol] 17 U/L 10 - 39 U/L [facility] Bilirubin [Mass/Vol] 1.6 mg/dL High NINF - 1.5 mg/dL [facility] Bilirubin.direct [Mass/Vol] 0.4 mg/dL High NINF - 0.3 mg/dL [facility] Protein [Mass/Vol] 6.6 g/dL 6.4 - 8.3 g/dL [facility] Albumin [Mass/Vol] 3.9 g/dL Normal 3.5-5.0 [facility] Comment on above: Performed By: #### M MERLE CHM7, HFP ####[facility] (DEFAULT)[address] [place] [address] ALP [Catalytic activity/Vol] 83 U/L Normal 32-126 [facility] Comment on above: Performed By: #### M MERLE CHM7, HFP ####[facility] (DEFAULT)[address] [place] [address] ALT [Catalytic activity/Vol] 9 U/L Low 10-52 [facility] Comment on above: Performed By: #### M MERLE CHM7, HFP ####[facility] (DEFAULT)[address] [place] [address] AST [Catalytic activity/Vol] 17 U/L Normal 10-39 [facility] Comment on above: Performed By: #### M MERLE CHM7, HFP ####[facility] (DEFAULT)[address] [place] [address] Bilirubin [Mass/Vol] 1.6 mg/dL High <1.5 [facility] Comment on above: Performed By: #### M GO CHM7, HFP ####[facility] (DEFAULT)[address] [place] [address] Bilirubin.indirect [Mass/Vol] 0.4 mg/dL High <0.3 [facility] Comment on above: Performed By: #### M GO CHM7, HFP ####[facility] (DEFAULT)[address] [place] [address] Protein [Mass/Vol] 6.6 g/dL Normal 6.4-8.3 [facility] Comment on above: Performed By: #### M GO, CHM7, HFP ####[facility] (DEFAULT)[address] [place] [address] ITRACONAZOLE LEVELon 024 Hydroxyitraconazole [Mass/Vol] 7.6 mcg/mL [facility] Comment on above: REFERENCE VALUE [...] by: [facility] - [address] [address] Concrete Mixer Operator Helper: Rosendo Bose M.D. Ph.D.; CLIA# [id number] Itraconazole [Mass/Vol] 6.0 mcg/mL [facility] Comment on above: REFERENCE VALUE >0.5 (localized infection), >1.0 (systemic infection) [facility] MAGNESIUMon 01-23-2024 Interpretation and review of laboratory results [facility] Magnesium [Mass/Vol] 1.8 mg/dL 1.6 - 2 .6 mg/dL [facility] Magnesium [Mass/Vol] 1.8 mg/dL Normal 1.6-2.6 [facility] Comment on above: Performed By: #### M HELEN BLOOMM7, HFP ####[facility] (DEFAULT)[address] [place] [address] No Panel Informationon 01-23 Interpretation and review of laboratory results Abnormal [facility] TACROLIMUS LEVEL, TROUGH (NC E DRUG LEVEL)on 01-23-2024 Interpretation and review of laboratory results [facility] Tacrolimus (Bld) [Mass/Vol] 7.0 ng/mL Bone Marrow Transplant: 4.0-12.0, Therapeutic: 5.0-15.0 [facility] Method performed is a chemiluminescent microparticle immunoasssay on the [employer] i2000. The range is based on experience at [facility] and users should be aware that target concentrations vary widely depending on concomitant therapy, time post-transplant, and desired degree of immunosuppression. [facility] Tacrolimus, Trough 7.0 ng/mL Normal Bone Susana ow Transplant: 4.0-12.0, Therapeutic: 5.0-15.0 [facility] Comment on above: Order Comment: Pleas e draw at specified interval PRIOR to dose. Do not hold dose to wait for level. Specimens batched twice per day, (M-F) and once per day weekendsMethod performed is a chemiluminescent microparticle immunoasssay on the [employer] i2000.The range is based on experience at [facility] and users should be aware that target concentrations vary widely depending on concomitant therapy, time post-transplant, and desired degree of immunosuppression. Performed By: #### T ACRO ####[facility] (DEFAULT)[address] [place] [address] CARDIAC RHYTHM (SCANNED)on 0 01-22-2024 [facility] CBC,PLATELETSon 01-22-2024 Erythrocyte distribution width (RBC) [Ratio] 14.1 % 10.9 - 14.3 % [facility] Hematocrit (Bld) [Volume fraction] 41.5 % 39.6 - 48.8 % [facility] Hemoglobin (Bld) [Mass/Vol] 13.3 g/dL Low 13.4 - 16.8 g/dL [facility] Interpretation and review of laboratory results Abnormal [facility] MCH (RBC) [Entitic mass] 27.8 pg 26.1 - 33.3 pg [facility] MCHC (RBC) [Mass/Vol] 32.0 g/dL 31.9 - 36.5 g/dL [facility] MCV (RBC) [Entitic vol] 86.8 fL 79.0 - 94.5 fL [facility] Platelet mean volume (Bld) [Entitic vol] 10.5 fL 8.7 - 12.3 fL [facility] Platelets (Bld) [#/Vol] 186 10*3/uL 146 - 337 K/uL [facility] RBC (Bld) [#/Vol] 4.78 10*6/uL [facility] WBC (Bld) [#/Vol] 3.74 10*3/uL 3.73 - 10. 10 K/uL [facility] Hematocrit (Bld) [Volume fraction] 41.5 % Normal 39.6-48.8 [facility] Comment on above: Performed By: #### [facility] ####[facility] (DEFAULT)[address] [facility] [place] [address] Hemoglobin (Bld) [Mass/Vol] 13.3 g/dL Low 13.4-16.8 [facility] Comment on above: Performed By: #### H EMO ####[facility] (DEFAULT)[address] [facility] [place] [address] MCV (RBC) [Entitic vol] 86.8 fL Normal 79.0-94.5 [facility] Comment on above: Performed By: #### H EMO ####[facility] (DEFAULT)[address] [facility] [place] [address] Mean Cell Hgb 27.8 pg Normal 26.1-33.3 [facility] Comment on above: Performed By: #### H EMOGC ####[facility] (DEFAULT)[address] [facility] [place] [address] Mean Cell Hgb Conc 32.0 g/dL Normal 31.9-36.5 [facility] Comment on above: Performed By: #### H EMOGC ####[facility] (DEFAULT)[address] [facility] [place] [address] Platelet mean volume (Bld) [Entitic vol] 10.5 fL Normal 8.7-12.3 [facility] Comment on above: Performed By: #### [facility] ####[facility] (DEFAULT)[address] [facility] [place] [address] Platelets (Bld) [#/Vol] 186 10*3/uL Normal 146-337 [facility] Comment on above: Performed By: #### [facility] ####[facility] (DEFAULT)[address] [place] [address] RBC (Bld) [#/Vol] 4.78 10*6/uL Normal 4.38-5.83 [facility] Comment on above: Performed By: #### [facility] ####[facility] (DEFAULT)[address] [facility] [place] [id number] RBC Distribution 14.1 % Normal 10.9-14.3 [facility] Comment on above: Performed By: #### [facility] ####[facility] (DEFAULT)[address] [place] [address] WBC (Bld) [#/Vol] 3.74 10*3/uL Normal 3.73-10.10 [facility] Comment on above: Performed By: #### [facility] ####[facility] (DEFAULT)[address] [place] [address] CHEM 7 (LYTES,BUN,CREA,GLUC) on 01-22-2024 Anion gap [Moles/Vol] 13 mmol/L 7 - 17 mmol/L [facility] Chloride [Moles/Vol] 109 mmol/L High 98 - 10 8 mmol/L [facility] CO2 [Moles/Vol] 23 mmol/L 21 - 31 mmol/L [facility] Creatinine [Mass/Vol] 1.10 mg/dL 0.70 - 1.30 mg/dL [facility] eGFR, CKD-EPI, Male 81 - PINF [facility] Comment on above: Reported eGFR is bas ed on the CKD-EPI 2021 equation using creatinine, age, and sex. Glucose [Mass/Vol] 84 mg/dL 70 - 99 mg/dL [facility] Interpretation and review of laboratory results Abnormal [facility] Osmolality Calc [Osmolality] 295 [facility] Potassium [Moles/Vol] 4.0 mmol/L 3.5 - 5.0 mmol/L [facility] Sodium [Moles/Vol] 141 mmol/L 135 - 145 mmol/L [facility] Urea nitrogen [Mass/Vol] 16 mg/dL 7 - 25 mg/dL [facility] Urea nitrogen/Creatinine [Mass ratio] 15 mg/mg [facility] Anion gap [Moles/Vol] 13 mmol/L Normal 7-17 [facility] Comment on above: Performed By: #### Rod BLOOM CHM7 ####[facility] (DEFAULT)[address] [place] [address] Chloride [Moles/Vol] 109 mmol/L High 98-108 [facility] Comment on above: Performed By: #### Rod BLOOM CHM7 ####[facility] (DEFAULT)[address] [place] [address] CO2 [Moles/Vol] 23 mmol/L Normal 21-31 [facility] Comment on above: Performed By: #### Rod BLOOM CHM7 ####[facility] (DEFAULT)[address] [place] [address] Creatinine [Mass/Vol] 1.10 mg/dL Normal 0.70-1.30 [facility] Comment on above: Performed By: #### Rod BLOOM CHM7 ####[facility] (DEFAULT)[address] [place] [address] GFR/1.73 sq M.predicted among non-blacks MDRD (S/P/Bld) [Vol rate/Area] 81 mL/min/{1.73_m2} Normal >=60 [facility] Comment on above: Result Comment: Repo rted eGFR is based on the CKD-EPI 2021 equation using creatinine, age, and sex. Performed By: #### NATHANIEL RAMÍREZ ####[facility] (DEFAULT)[address] [place] [address] Glucose [Mass/Vol] 84 mg/dL Normal 70-99 [facility] Comment on above: Performed By: #### TJ RAMÍREZ7 ####[facility] (DEFAULT)[address] [place] [address] Osmolality [Osmolality] 295 mosm/kg Normal 278-305 [facility] Comment on above: Performed By: #### TJ RAMÍREZ7 ####[facility] (DEFAULT)[address] [place] [address] Potassium [Moles/Vol] 4.0 mmol/L Normal 3.5-5.0 [facility] Comment on above: Performed By: #### NATHANIEL RAMÍREZ ####[facility] (DEFAULT)[address] [place] [address] Sodium [Moles/Vol] 141 mmol/L Normal 135-145 [facility] Comment on above: Performed By: #### TJ RAMÍREZ7 ####[facility] (DEFAULT)[address] [place] [address] Urea nitrogen [Mass/Vol] 16 mg/dL Normal 7-25 [facility] Comment on above: Performed By: #### TJ RAMÍREZ7 ####[facility] (DEFAULT)[address] [place] [address] Urea nitrogen/Creatinine [Mass ratio] 15 mg/mg Normal [facility] Comment on above: Performed By: #### NATHANIEL RAMÍREZ ####[facility] (DEFAULT)[address] [place] [address] MAGNESIUMon 01-22-2024 Interpretation and review of laboratory results Normal [facility] Magnesium [Mass/Vol] 2.0 mg/dL 1.6 - 2 .6 mg/dL [facility] Magnesium [Mass/Vol] 2.0 mg/dL Normal 1.6-2.6 [facility] Comment on above: Performed By: #### M [facility] ####[facility] (DEFAULT)[address] [place] [address] No Panel Informationon 01-22 [facility] PT,INR,PTTon 01-22-2024 aPTT Coag (PPP) [Time] 29.2 s [facility] INR Coag (Bld) [Relative time] 1.1 {INR} 0.9 - 1.1 [facility] Interpretation and review of laboratory results Abnormal [facility] PT Coag (PPP) [Time] 14.3 s High [facility] aPTT Coag (Bld) [Time] 29.2 s Normal 24.0-34.3 [facility] Comment on above: Performed By: #### P TPTT ####[facility] (DEFAULT)[address] [place] [address] INR Coag (PPP) [Relative time] 1.1 {INR} Normal 0.9-1.1 [facility] Comment on above: Performed By: #### P TPTT ####[facility] (DEFAULT)[address] [place] [address] PT Coag (PPP) [Time] 14.3 s High 11.9-14.2 [facility] Comment on above: Performed By: #### P TPTT ####[facility] (DEFAULT)[address] [place] [address] TACROLIMUS LEVEL, TROUGH (NC E DRUG LEVEL)Ordered By: Sheree Jensen on 01-22-2024 Interpretation and review of laboratory results Normal [facility] Tacrolimus (Bld) [Mass/Vol] 7.9 ng/mL Bone Marrow Transplant: 4.0-12.0, Therapeutic: 5.0-15.0 [facility] Method performed is a chemiluminescent microparticle immunoasssay on the [employer] i2000. The range is based on experience at [facility] and users should be aware that target concentrations vary widely depending on concomitant therapy, time post-transplant, and desired degree of immunosuppression. [facility] TACROLIMUS LEVEL, TROUGH (NC E DRUG LEVEL)on 01-22-2024 Tacrolimus, Trough 7.9 ng/mL Normal Bone Susana ow Transplant: 4.0-12.0, Therapeutic: 5.0-15.0 [facility] Comment on above: Order Comment: Pleas e draw at specified interval PRIOR to dose. Do not hold dose to wait for level. Specimens batched twice per day, (M-F) and once per day weekendsMethod performed is a chemiluminescent microparticle immunoasssay on the [employer] Manager i2000.The range is based on experience at [facility] and users should be aware that target concentrations vary widely depending on concomitant therapy, time post-transplant, and desired degree of immunosuppression. Performed By: #### T ACRO ####[facility] (DEFAULT)[address] [place] [address] TYPE AND SCREENon 01-22-2024 ABO/RH(D) TYPE Positive [facility] ABO/RH(D) TYPE Positive Normal [facility] Comment on above: Performed By: #### X M ####[facility] (DEFAULT)[address] [place] [address] [place] Unspecified body regionOr dered By: Unassigned Pacs on 01-22-2024 [facility] Work Phone: [place] Unspecified body regionon 01-22-2024 Radiology Study observation (narrative) [facility] CBC,PLATELETSon 01-21-2024 Erythrocyte distribution width (RBC) [Ratio] 14.0 % 10.9 - 14.3 % [facility] Hematocrit (Bld) [Volume fraction] 39.4 % Low 39.6 - 48.8 % [facility] Hemoglobin (Bld) [Mass/Vol] 12.7 g/dL Low 13.4 - 16.8 g/dL [facility] Interpretation and review of laboratory results Abnormal [facility] MCH (RBC) [Entitic mass] 28.0 pg 26.1 - 33.3 pg [facility] MCHC (RBC) [Mass/Vol] 32.2 g/dL 31.9 - 36.5 g/dL [facility] MCV (RBC) [Entitic vol] 87.0 fL 79.0 - 94.5 fL [facility] Platelet mean volume (Bld) [Entitic vol] 10.2 fL 8.7 - 12.3 fL [facility] Platelets (Bld) [#/Vol] 157 10*3/uL 146 - 337 K/uL [facility] RBC (Bld) [#/Vol] 4.53 10*6/uL [facility] WBC (Bld) [#/Vol] 3.42 10*3/uL Low 3.73 - 10. 10 K/uL [facility] Hematocrit (Bld) [Volume fraction] 39.4 % Low 39.6-48.8 [facility] Comment on above: Performed By: #### [facility] ####[facility] (DEFAULT)[address] [place] [address] Hemoglobin (Bld) [Mass/Vol] 12.7 g/dL Low 13.4-16.8 [facility] Comment on above: Performed By: #### [facility] ####[facility] (DEFAULT)[address] [place] [address] MCV (RBC) [Entitic vol] 87.0 fL Normal 79.0-94.5 [facility] Comment on above: Performed By: #### [facility] ####[facility] (DEFAULT)[address] [place] [address] Mean Cell Hgb 28.0 pg Normal 26.1-33.3 [facility] Comment on above: Performed By: #### [facility] ####[facility] (DEFAULT)[address] [place] [address] Mean Cell Hgb Conc 32.2 g/dL Normal 31.9-36.5 [facility] Comment on above: Performed By: #### H EMOGC ####[facility] (DEFAULT)[address] [place] [address] Platelet mean volume (Bld) [Entitic vol] 10.2 fL Normal 8.7-12.3 [facility] Comment on above: Performed By: #### H EMOGC ####[facility] (DEFAULT)[address] [facility] [place] [address] Platelets (Bld) [#/Vol] 157 10*3/uL Normal 146-337 [facility] Comment on above: Performed By: #### H EMOGC ####[facility] (DEFAULT)[address] [facility] [place] [address] RBC (Bld) [#/Vol] 4.53 10*6/uL Normal 4.38-5.83 [facility] Comment on above: Performed By: #### H EMOGC ####[facility] (DEFAULT)[address] [facility] [place] [address] RBC Distribution 14.0 % Normal 10.9-14.3 [facility] Comment on above: Performed By: #### H EMOGC ####[facility] (DEFAULT)[address] [facility] [place] [address] WBC (Bld) [#/Vol] 3.42 10*3/uL Low 3.73-10.10 [facility] Comment on above: Performed By: #### H EMOGC ####[facility] (DEFAULT)[address] [place] [address] CHEM 7 (LYTES,BUN,CREA,GLUC) on 01-21-2024 Anion gap [Moles/Vol] 12 mmol/L 7 - 17 mmol/L [facility] Chloride [Moles/Vol] 107 mmol/L 98 - 10 8 mmol/L [facility] CO2 [Moles/Vol] 26 mmol/L 21 - 31 mmol/L [facility] Creatinine [Mass/Vol] 1.11 mg/dL 0.70 - 1.30 mg/dL [facility] eGFR, CKD-EPI, Male 80 - PINF [facility] Comment on above: Reported eGFR is bas ed on the CKD-EPI 2020 equation using creatinine, age, and sex. Glucose [Mass/Vol] 93 mg/dL 70 - 99 mg/dL [facility] Osmolality Calc [Osmolality] 295 [facility] Potassium [Moles/Vol] 3.9 mmol/L 3.5 - 5.0 mmol/L [facility] Sodium [Moles/Vol] 141 mmol/L 135 - 145 mmol/L [facility] Urea nitrogen [Mass/Vol] 15 mg/dL 7 - 25 mg/dL [facility] Urea nitrogen/Creatinine [Mass ratio] 14 mg/mg [facility] Anion gap [Moles/Vol] 12 mmol/L Normal 7-17 [facility] Comment on above: Performed By: #### NATHANIEL RAMÍREZ ####[facility] (DEFAULT)[address] [place] [address] Chloride [Moles/Vol] 107 mmol/L Normal 98-108 [facility] Comment on above: Performed By: ###NATHANIEL HERNANDEZ ####[facility] (DEFAULT)[address] [place] [address] CO2 [Moles/Vol] 26 mmol/L Normal 21-31 [facility] Comment on above: Performed By: #### NATHANIEL RAMÍREZ ####[facility] (DEFAULT)[address] [place] [address] Creatinine [Mass/Vol] 1.11 mg/dL Normal 0.70-1.30 [facility] Comment on above: Performed By: #### NATHANIEL RAMÍREZ ####[facility] (DEFAULT)[address] [place] [address] GFR/1.73 sq M.predicted among non-blacks MDRD (S/P/Bld) [Vol rate/Area] 80 mL/min/{1.73_m2} Normal >=60 [facility] Comment on above: Result Comment: Repo rted eGFR is based on the CKD-EPI 2020 equation using creatinine, age, and sex. Performed By: #### Rod BLOOM CHM7 ####[facility] (DEFAULT)[address] [place] [address] Glucose [Mass/Vol] 93 mg/dL Normal 70-99 [facility] Comment on above: Performed By: #### Rod BLOOM CHM7 ####[facility] (DEFAULT)[address] [place] [address] Osmolality [Osmolality] 295 mosm/kg Normal 278-305 [facility] Comment on above: Performed By: #### Rod BLOOM CHM7 ####[facility] (DEFAULT)[address] [place] [address] Potassium [Moles/Vol] 3.9 mmol/L Normal 3.5-5.0 [facility] Comment on above: Performed By: #### Rod BLOOM CHM7 ####[facility] (DEFAULT)[address] [place] [address] Sodium [Moles/Vol] 141 mmol/L Normal 135-145 [facility] Comment on above: Performed By: #### Rod BLOOM CHM7 ####[facility] (DEFAULT)[address] [place] [address] Urea nitrogen [Mass/Vol] 15 mg/dL Normal 7-25 [facility] Comment on above: Performed By: #### Rod BLOOM CHM7 ####[facility] (DEFAULT)[address] [place] [address] Urea nitrogen/Creatinine [Mass ratio] 14 mg/mg Normal [facility] Comment on above: Performed By: #### M [facility] ####[facility] (DEFAULT)[address] [place] [address] Cardiac catheterization stud yOrdered By: Kelvin Donohue on 01-21-2024 Body surface area Derived from formula 2.08 m2 [facility] Work Phone: [facility] Work Phone: Cardiac catheterization stud [...] with fistula occlusion Kelvin Donohue MD, MPH [employer] of Internal Medicine. Section of Advanced Heart Failure and Transplantation Division of Cardiovascular Diseases [facility] [email or web address] INVASIVE CARDIOVASCULAR PROC EDUREon 01-21-2024 INVASIVE CARDIOVASCULAR PROCEDURE Normal [facility] MAGNESIUMon 01-21-2024 Interpretation and review of laboratory results Abnormal [facility] Magnesium [Mass/Vol] 1.5 mg/dL Low 1.6 - 2 .6 mg/dL [facility] Magnesium [Mass/Vol] 1.5 mg/dL Low 1.6-2.6 [facility] Comment on above: Performed By: #### M [facility] ####[facility] (DEFAULT)[address] [place] [address] No Panel Informationon 01-21 [facility] TACROLIMUS LEVEL, TROUGH (NC E DRUG LEVEL)on 01-21-2024 Interpretation and review of laboratory results Normal [facility] Tacrolimus (Bld) [Mass/Vol] 7.2 ng/mL Bone Marrow Transplant: 4.0-12.0, Therapeutic: 5.0-15.0 [facility] Method performed is a chemiluminescent microparticle immunoasssay on the [employer] i2000. The range is based on experience at [facility] and users should be aware that target concentrations vary widely depending on concomitant therapy, time post-transplant, and desired degree of immunosuppression. [facility] Tacrolimus, Trough 7.2 ng/mL Normal Bone Susana ow Transplant: 4.0-12.0, Therapeutic: 5.0-15.0 [facility] Comment on above: Order Comment: Pleas e draw at specified interval PRIOR to dose. Do not hold dose to wait for level. Specimens batched twice per day, (M-F) and once per day weekendsMethod performed is a chemiluminescent microparticle immunoasssay on the [employer] i2000.The range is based on experience at [facility] and users should be aware that target concentrations vary widely depending on concomitant therapy, time post-transplant, and desired degree of immunosuppression. Performed By: #### T ACRO ####[facility] (DEFAULT)[address] [place] [address] CBC,PLATELETSon 01-20-2024 Erythrocyte distribution width (RBC) [Ratio] 13.8 % 10.9 - 14.3 % [facility] Hematocrit (Bld) [Volume fraction] 38.9 % Low 39.6 - 48.8 % [facility] Hemoglobin (Bld) [Mass/Vol] 12.5 g/dL Low 13.4 - 16.8 g/dL [facility] Interpretation and review of laboratory results Abnormal [facility] MCH (RBC) [Entitic mass] 28.0 pg 26.1 - 33.3 pg [facility] MCHC (RBC) [Mass/Vol] 32.1 g/dL 31.9 - 36.5 g/dL [facility] MCV (RBC) [Entitic vol] 87.2 fL 79.0 - 94.5 fL [facility] Platelet mean volume (Bld) [Entitic vol] 10.2 fL 8.7 - 12.3 fL [facility] Platelets (Bld) [#/Vol] 166 10*3/uL 146 - 337 K/uL [facility] RBC (Bld) [#/Vol] 4.46 10*6/uL [facility] WBC (Bld) [#/Vol] 3.79 10*3/uL 3.73 - 10. 10 K/uL [facility] Hematocrit (Bld) [Volume fraction] 38.9 % Low 39.6-48.8 [facility] Comment on above: Performed By: #### [facility] ####[facility] (DEFAULT)[address] [place] [address] Hemoglobin (Bld) [Mass/Vol] 12.5 g/dL Low 13.4-16.8 [facility] Comment on above: Performed By: #### H EMO ####[facility] (DEFAULT)[address] [place] [address] MCV (RBC) [Entitic vol] 87.2 fL Normal 79.0-94.5 [facility] Comment on above: Performed By: #### H EMO ####[facility] (DEFAULT)[address] [place] [address] Mean Cell Hgb 28.0 pg Normal 26.1-33.3 [facility] Comment on above: Performed By: #### H EMO ####[facility] (DEFAULT)[address] [place] [address] Mean Cell Hgb Conc 32.1 g/dL Normal 31.9-36.5 [facility] Comment on above: Performed By: #### H EMO ####[facility] (DEFAULT)[address] [place] [address] Platelet mean volume (Bld) [Entitic vol] 10.2 fL Normal 8.7-12.3 [facility] Comment on above: Performed By: #### H EMO ####[facility] (DEFAULT)[address] [facility] [place] [address] Platelets (Bld) [#/Vol] 166 10*3/uL Normal 146-337 [facility] Comment on above: Performed By: #### H EMO ####[facility] (DEFAULT)[address] [facility] [place] [address] RBC (Bld) [#/Vol] 4.46 10*6/uL Normal 4.38-5.83 [facility] Comment on above: Performed By: #### H EMO ####[facility] (DEFAULT)[address] [facility] [place] [address] RBC Distribution 13.8 % Normal 10.9-14.3 [facility] Comment on above: Performed By: #### H EMO ####[facility] (DEFAULT)[address] [facility] [place] [address] WBC (Bld) [#/Vol] 3.79 10*3/uL Normal 3.73-10.10 [facility] Comment on above: Performed By: #### H EMO ####[facility] (DEFAULT)[address] [place] [address] CHEM 7 (LYTES,BUN,CREA,GLUC) on 01-20-2024 Anion gap [Moles/Vol] 12 mmol/L 7 - 17 mmol/L [facility] Chloride [Moles/Vol] 105 mmol/L 98 - 10 8 mmol/L [facility] CO2 [Moles/Vol] 28 mmol/L 21 - 31 mmol/L [facility] Creatinine [Mass/Vol] 1.12 mg/dL 0.70 - 1.30 mg/dL [facility] eGFR, CKD-EPI, Male 79 - PINF [facility] Comment on above: Reported eGFR is bas ed on the CKD-EPI 2020 equation using creatinine, age, and sex. Glucose [Mass/Vol] 88 mg/dL 70 - 99 mg/dL [facility] Osmolality Calc [Osmolality] 294 [facility] Potassium [Moles/Vol] 3.8 mmol/L 3.5 - 5.0 mmol/L [facility] Sodium [Moles/Vol] 141 mmol/L 135 - 145 mmol/L [facility] Urea nitrogen [Mass/Vol] 15 mg/dL 7 - 25 mg/dL [facility] Urea nitrogen/Creatinine [Mass ratio] 13 mg/mg [facility] Anion gap [Moles/Vol] 12 mmol/L Normal 7-17 [facility] Comment on above: Performed By: #### TAVO RAMÍREZ, CHM7 ####[facility] (DEFAULT)[address] [place] [address] Chloride [Moles/Vol] 105 mmol/L Normal 98-108 [facility] Comment on above: Performed By: #### TAVO RAMÍREZ, CHM7 ####[facility] (DEFAULT)[address] [facility] [place] [address] CO2 [Moles/Vol] 28 mmol/L Normal 21-31 [facility] Comment on above: Performed By: #### TAVO RAMÍREZ, CHM7 ####[facility] (DEFAULT)[address] [place] [address] Creatinine [Mass/Vol] 1.12 mg/dL Normal 0.70-1.30 [facility] Comment on above: Performed By: #### TAVO RAMÍREZ, CHM7 ####[facility] (DEFAULT)[address] [place] [address] GFR/1.73 sq M.predicted among non-blacks MDRD (S/P/Bld) [Vol rate/Area] 79 mL/min/{1.73_m2} Normal >=60 [facility] Comment on above: Result Comment: Repo rted eGFR is based on the CKD-EPI 2020 equation using creatinine, age, and sex. Performed By: #### TAVO RAMÍREZ, CHM7 ####U [facility] (DEFAULT)[address] [place] [address] Glucose [Mass/Vol] 88 mg/dL Normal 70-99 [facility] Comment on above: Performed By: #### TAVO RAMÍREZ, CHM7 ####[facility] (DEFAULT)[address] [place] [address] Osmolality [Osmolality] 294 mosm/kg Normal 278-305 [facility] Comment on above: Performed By: #### TAVO RAMÍREZ, CHM7 ####[facility] (DEFAULT)[address] [place] [address] Potassium [Moles/Vol] 3.8 mmol/L Normal 3.5-5.0 [facility] Comment on above: Performed By: #### TAVO RAMÍREZ, CHM7 ####[facility] (DEFAULT)[address] [place] [address] Sodium [Moles/Vol] 141 mmol/L Normal 135-145 [facility] Comment on above: Performed By: #### TAVO RAMÍREZ, CHM7 ####[facility] (DEFAULT)[address] [place] [address] Urea nitrogen [Mass/Vol] 15 mg/dL Normal 7-25 [facility] Comment on above: Performed By: #### TAVO RAMÍREZ, CHM7 ####[facility] (DEFAULT)[address] [place] [address] Urea nitrogen/Creatinine [Mass ratio] 13 mg/mg Normal [facility] Comment on above: Performed By: #### M , [facility], CHM7 ####[facility] (DEFAULT)[address] [place] [address] Cardiac catheterization stud yon 01-20-2024 [facility] Radiology Study observation (narrative) [facility] Radiology Study observation (narrative) [facility] EBV BY PCR, QUANTITATIVE,BLO ODOrdered By: Charlotte Jensen on 01-20-2024 EBV DNA ESTELITA+probe (Unsp spec) [#/Vol] NINF [facility] Interpretation and review of laboratory results [facility] This test was perfor med using a real time PCR assay. The dynamic range for this assay is 1000-5,000,000 IU/mL. A result <1000 IU/mL does not rule out the presence of EBV DNA in quantities below the sensitivity of this assay. This test was developed and its performance characteristics determined by [facility]. It has not been cleared or approved by the FDA. The laboratory is regulated under CLIA as qualified to perform high-complexity testing. This test is used for clinical purposes. It should not be regarded as investigational or for research. [facility] HEPATIC FUNCTION PANELon Albumin [Mass/Vol] 3.7 g/dL 3.5 - 5.0 g/dL [facility] ALP [Catalytic activity/Vol] 73 U/L 32 - 126 U/L [facility] ALT [Catalytic activity/Vol] 12 U/L 10 - 52 U/L [facility] AST [Catalytic activity/Vol] 19 U/L 10 - 39 U/L [facility] Bilirubin [Mass/Vol] 2.1 mg/dL High NINF - 1.5 mg/dL [facility] Bilirubin.direct [Mass/Vol] 0.5 mg/dL High NINF - 0.3 mg/dL [facility] Interpretation and review of laboratory results Abnormal [facility] Protein [Mass/Vol] 6.1 g/dL Low 6.4 - 8.3 g/dL [facility] Albumin [Mass/Vol] 3.7 g/dL Normal 3.5-5.0 [facility] Comment on above: Performed By: #### M GO, HFP, CHM7 ####[facility] (DEFAULT)[address] [place] [address] ALP [Catalytic activity/Vol] 73 U/L Normal 32-126 [facility] Comment on above: Performed By: #### M GO, HFP, CHM7 ####[facility] (DEFAULT)[address] [place] [address] ALT [Catalytic activity/Vol] 12 U/L Normal 10-52 [facility] Comment on above: Performed By: #### M GO, HFP, CHM7 ####[facility] (DEFAULT)[address] [place] [address] AST [Catalytic activity/Vol] 19 U/L Normal 10-39 [facility] Comment on above: Performed By: #### M GO, HFP, CHM7 ####[facility] (DEFAULT)[address] [place] [address] Bilirubin [Mass/Vol] 2.1 mg/dL High <1.5 [facility] Comment on above: Performed By: #### M GO, HFP, CHM7 ####[facility] (DEFAULT)[address] [place] [address] Bilirubin.indirect [Mass/Vol] 0.5 mg/dL High <0.3 [facility] Comment on above: Performed By: #### M GO, HFP, CHM7 ####[facility] (DEFAULT)[address] [place] [address] Protein [Mass/Vol] 6.1 g/dL Low 6.4-8.3 [facility] Comment on above: Performed By: #### M GO, HFP, CHM7 ####[facility] (DEFAULT)[address] [place] [address] ITRACONAZOLE LEVELon 024 Hydroxyitraconazole 7.6 mcg/mL Normal [facility] Comment on above: Order Comment: Pleas [...] bythe U.S. Food and Drug Administration.Test Performed by:[address] Director: Rosendo Bose M.D. Ph.D.; CLIA# [id number] Performed By: #### Y ITCON ####U [facility] (DEFAULT)[address] [place] [address] Itraconazole 6.0 mcg/mL Normal [facility] Comment on above: Order Comment: Pleas e draw level at specified interval PRIOR to dose. Result Comment: ---- REFERENCE VALUE-------------------------->0.5 (localized infection), >1.0 (systemic infection) Performed By: #### Y ITCON ####[facility] (DEFAULT)[address] [place] [address] MAGNESIUMon 01-20-2024 Interpretation and review of laboratory results Normal [facility] Magnesium [Mass/Vol] 1.6 mg/dL 1.6 - 2 .6 mg/dL [facility] Magnesium [Mass/Vol] 1.6 mg/dL Normal 1.6-2.6 [facility] Comment on above: Performed By: #### M MERLE, [facility], CHM7 ####[facility] (DEFAULT)[address] [place] [address] No Panel Informationon 01-20 [facility] POCT CO-OXIMETRYon Hemoglobin (Bld) [Mass/Vol] 12.8 g/dL Low 13.4 - 16.8 g/dL [facility] Interpretation and review of laboratory results Abnormal [facility] Oxyhemoglobin 69 % Low 94 - 98 % [facility] Ordering physician notified. Test performed at address of the patient encounter. [facility] Hemoglobin (Bld) [Mass/Vol] 13.3 g/dL Low 13.4 - 16.8 g/dL [facility] Interpretation and review of laboratory results Abnormal [facility] Oxyhemoglobin 69 % Low 94 - 98 % [facility] Ordering physician notified. Test performed at address of the patient encounter. [facility] PT,INR,PTTon 01-20-2024 aPTT Coag (PPP) [Time] 30.6 s [facility] INR Coag (Bld) [Relative time] 1.2 {INR} High 0.9 - 1.1 [facility] Interpretation and review of laboratory results Abnormal [facility] PT Coag (PPP) [Time] 15.5 s High [facility] aPTT Coag (Bld) [Time] 30.6 s Normal 24.0-34.3 [facility] Comment on above: Performed By: #### P TPTT ####[facility] (DEFAULT)[address] [place] [address] INR Coag (PPP) [Relative time] 1.2 {INR} High 0.9-1.1 [facility] Comment on above: Performed By: #### P TPTT ####[facility] (DEFAULT)[address] [facility] [place] [address] PT Coag (PPP) [Time] 15.5 s High 11.9-14.2 [facility] Comment on above: Performed By: #### P TPTT ####[facility] (DEFAULT)[address] [place] [address] TACROLIMUS LEVEL, TROUGH (NC E DRUG LEVEL)Ordered By: Yanira Marcum on 01-20-2024 Interpretation and review of laboratory results Normal [facility] Tacrolimus (Bld) [Mass/Vol] 7.7 ng/mL Bone Marrow Transplant: 4.0-12.0, Therapeutic: 5.0-15.0 [facility] Method performed is a chemiluminescent microparticle immunoasssay on the [employer] i2000. The range is based on experience at [facility] and users should be aware that target concentrations vary widely depending on concomitant therapy, time post-transplant, and desired degree of immunosuppression. [facility] TACROLIMUS LEVEL, TROUGH (NC E DRUG LEVEL)on 01-20-2024 Tacrolimus, Trough 7.7 ng/mL Normal Bone Susana ow Transplant: 4.0-12.0, Therapeutic: 5.0-15.0 [facility] Comment on above: Order Comment: Pleas e draw at specified interval PRIOR to dose. Do not hold dose to wait for level. Specimens batched twice per day, (M-) and once per day weekendsMethod performed is a chemiluminescent microparticle immunoasssay on the [employer] i2000.The range is based on experience at [facility] and users should be aware that target concentrations vary widely depending on concomitant therapy, time post-transplant, and desired degree of immunosuppression. Performed By: #### T ACRO ####[facility] (DEFAULT)[address] [place] [address] CBC,PLATELETSon 01-19-2024 Erythrocyte distribution width (RBC) [Ratio] 13.9 % 10.9 - 14.3 % [facility] Hematocrit (Bld) [Volume fraction] 37.5 % Low 39.6 - 48.8 % [facility] Hemoglobin (Bld) [Mass/Vol] 12.1 g/dL Low 13.4 - 16.8 g/dL [facility] Interpretation and review of laboratory results Abnormal [facility] MCH (RBC) [Entitic mass] 28.3 pg 26.1 - 33.3 pg [facility] MCHC (RBC) [Mass/Vol] 32.3 g/dL 31.9 - 36.5 g/dL [facility] MCV (RBC) [Entitic vol] 87.8 fL 79.0 - 94.5 fL [facility] Platelet mean volume (Bld) [Entitic vol] 10.4 fL 8.7 - 12.3 fL [facility] Platelets (Bld) [#/Vol] 163 10*3/uL 146 - 337 K/uL [facility] RBC (Bld) [#/Vol] 4.27 10*6/uL Low [facility] WBC (Bld) [#/Vol] 3.69 10*3/uL Low 3.73 - 10. 10 K/uL [facility] Hematocrit (Bld) [Volume fraction] 37.5 % Low 39.6-48.8 [facility] Comment on above: Performed By: #### [facility] ####[facility] (DEFAULT)[address] [place] [address] Hemoglobin (Bld) [Mass/Vol] 12.1 g/dL Low 13.4-16.8 [facility] Comment on above: Performed By: #### [facility] ####[facility] (DEFAULT)[address] [place] [address] MCV (RBC) [Entitic vol] 87.8 fL Normal 79.0-94.5 [facility] Comment on above: Performed By: #### [facility] ####[facility] (DEFAULT)[address] [place] [address] Mean Cell Hgb 28.3 pg Normal 26.1-33.3 [facility] Comment on above: Performed By: #### H EMOGC ####[facility] (DEFAULT)[address] [place] [address] Mean Cell Hgb Conc 32.3 g/dL Normal 31.9-36.5 [facility] Comment on above: Performed By: #### H EMOGC ####[facility] (DEFAULT)[address] [place] [address] Platelet mean volume (Bld) [Entitic vol] 10.4 fL Normal 8.7-12.3 [facility] Comment on above: Performed By: #### H EMOGC ####[facility] (DEFAULT)[address] [place] [address] Platelets (Bld) [#/Vol] 163 10*3/uL Normal 146-337 [facility] Comment on above: Performed By: #### H EMOGC ####[facility] (DEFAULT)[address] [facility] [place] [address] RBC (Bld) [#/Vol] 4.27 10*6/uL Low 4.38-5.83 [facility] Comment on above: Performed By: #### H EMOGC ####[facility] (DEFAULT)[address] [place] [place] [address] RBC Distribution 13.9 % Normal 10.9-14.3 [facility] Comment on above: Performed By: #### H EMOGC ####[facility] (DEFAULT)[address] [place] [address] WBC (Bld) [#/Vol] 3.69 10*3/uL Low 3.73-10.10 [facility] Comment on above: Performed By: #### H EMOGC ####[facility] (DEFAULT)[address] [place] [address] CHEM 7 (LYTES,BUN,CREA,GLUC) on 01-19-2024 Anion gap [Moles/Vol] 14 mmol/L 7 - 17 mmol/L [facility] Chloride [Moles/Vol] 106 mmol/L 98 - 10 8 mmol/L [facility] CO2 [Moles/Vol] 24 mmol/L 21 - 31 mmol/L [facility] Creatinine [Mass/Vol] 1.13 mg/dL 0.70 - 1.30 mg/dL [facility] eGFR, CKD-EPI, Male 78 - PINF [facility] Comment on above: Reported eGFR is bas ed on the CKD-EPI 2020 equation using creatinine, age, and sex. Glucose [Mass/Vol] 86 mg/dL 70 - 99 mg/dL [facility] Osmolality Calc [Osmolality] 293 [facility] Potassium [Moles/Vol] 3.8 mmol/L 3.5 - 5.0 mmol/L [facility] Sodium [Moles/Vol] 140 mmol/L 135 - 145 mmol/L [facility] Urea nitrogen [Mass/Vol] 16 mg/dL 7 - 25 mg/dL [facility] Urea nitrogen/Creatinine [Mass ratio] 14 mg/mg [facility] Anion gap [Moles/Vol] 14 mmol/L Normal 7-17 [facility] Comment on above: Performed By: #### Rod BLOOM CHM7 ####[facility] (DEFAULT)[address] [place] [address] Chloride [Moles/Vol] 106 mmol/L Normal 98-108 [facility] Comment on above: Performed By: #### TJ RAMÍREZ7 ####[facility] (DEFAULT)[address] [place] [address] CO2 [Moles/Vol] 24 mmol/L Normal 21-31 [facility] Comment on above: Performed By: #### Rod BLOOM CHM7 ####[facility] (DEFAULT)[address] [place] [address] Creatinine [Mass/Vol] 1.13 mg/dL Normal 0.70-1.30 [facility] Comment on above: Performed By: #### Rod BLOOM CHM7 ####[facility] (DEFAULT)[address] [place] [address] GFR/1.73 sq M.predicted among non-blacks MDRD (S/P/Bld) [Vol rate/Area] 78 mL/min/{1.73_m2} Normal >=60 [facility] Comment on above: Result Comment: Repo rted eGFR is based on the CKD-EPI 2020 equation using creatinine, age, and sex. Performed By: #### TJ RAMÍREZ7 ####[facility] (DEFAULT)[address] [place] [address] Glucose [Mass/Vol] 86 mg/dL Normal 70-99 [facility] Comment on above: Performed By: #### TJ RAMÍREZ7 ####[facility] (DEFAULT)[address] [place] [address] Osmolality [Osmolality] 293 mosm/kg Normal 278-305 [facility] Comment on above: Performed By: #### Rod BLOOM CHM7 ####[facility] (DEFAULT)[address] [place], [place] [address], [place] [address] Potassium [Moles/Vol] 3.8 mmol/L Normal 3.5-5.0 [facility] Comment on above: Performed By: #### Rod BLOOM CHM7 ####[facility] (DEFAULT)[address] [place] [address] Sodium [Moles/Vol] 140 mmol/L Normal 135-145 [facility] Comment on above: Performed By: #### Rod BLOOM CHM7 ####[facility] (DEFAULT)[address] [place] [address] Urea nitrogen [Mass/Vol] 16 mg/dL Normal 7-25 [facility] Comment on above: Performed By: #### Rod BLOOM CHM7 ####[facility] (DEFAULT)[address] [place] [address] Urea nitrogen/Creatinine [Mass ratio] 14 mg/mg Normal [facility] Comment on above: Performed By: #### M HELEN BLOOM7 ####[facility] (DEFAULT)[address] [place] [address] EBV BY PCR, QUANTITATIVE,BLO ODon 01-19-2024 Ebv By Pcr, Quant, Blood <1000 Normal <1000 [facility] Comment on above: Order Comment: This test was performed using a real time PCR assay. The dynamic range for this assay is 1000-5,000,000 IU/mL. A result <1000 IU/mL does not rule out the presence of EBV DNA in quantities below the sensitivity of this assay. This test was developed and its performance characteristics determined by [facility]. It has not been cleared or approved by the FDA. The laboratory is regulated under CLIA as qualified to perform high-complexity testing. This test is used for clinical purposes. It should not be regarded as investigational or for research. Performed By: #### E BVPCR ####[facility] (DEFAULT)[address] [address] HISTOPLASMA AND BLASTOMYCES ANTIGEN, ENZYME IMMUNOASSAY, SERMon 01-19-2024 Histoplasma/Blastomy antonia Ag Result Not detected Not Detected [facility] Comment on above: No antigen from Hist oplasma or Blastomyces detected. False negative results may occur depending on extent of disease, and/or site of infection. Repeat testing on a new specimen if clinically indicated. Histoplasma/Blastomy antonia Ag Value Not detected ng/mL [facility] Comment on above: ADDITIONAL INFORMATION This test was developed and its performance characteristics determined by [facility] in a manner consistent with CLIA requirements. This test has not been cleared or approved by the U.S. Food and Drug Administration. Test Performed by: [facility] - [address] [address] [employer]er Operator Helper: Rosendo Bose M.D. Ph.D.; IA# [id number] [facility] MAGNESIUMon 01-19-2024 Interpretation and review of laboratory results Normal [facility] Magnesium [Mass/Vol] 1.8 mg/dL 1.6 - 2 .6 mg/dL [facility] Magnesium [Mass/Vol] 1.8 mg/dL Normal 1.6-2.6 [facility] Comment on above: Performed By: #### M HELEN BLOOM7 ####[facility] (DEFAULT)[address] [place] [address] No Panel Informationon 01-19 [facility] TACROLIMUS LEVEL, TROUGH (NC E DRUG LEVEL)Ordered By: Raymundo Mehta on 01-19-2024 Interpretation and review of laboratory results Normal [facility] Tacrolimus (Bld) [Mass/Vol] 6.8 ng/mL Bone Marrow Transplant: 4.0-12.0, Therapeutic: 5.0-15.0 [facility] Method performed is a chemiluminescent microparticle immunoasssay on the [employer] i2000. The range is based on experience at [facility] and users should be aware that target concentrations vary widely depending on concomitant therapy, time post-transplant, and desired degree of immunosuppression. [facility] TACROLIMUS LEVEL, TROUGH (NC E DRUG LEVEL)on 01-19-2024 Tacrolimus, Trough 6.8 ng/mL Normal Bone Susana ow Transplant: 4.0-12.0, Therapeutic: 5.0-15.0 [facility] Comment on above: Order Comment: Pleas e draw at specified interval PRIOR to dose. Do not hold dose to wait for level. Specimens batched twice per day, (M-F) and once per day weekendsMethod performed is a chemiluminescent microparticle immunoasssay on the [employer] i2000.The range is based on experience at [facility] and users should be aware that target concentrations vary widely depending on concomitant therapy, time post-transplant, and desired degree of immunosuppression. Performed By: #### T ACRO ####[facility] (DEFAULT)[address] [place] [address] US AV fistulaOrdered By: Diana Reyes on 01-19-2024 [facility] Work Phone: US AV fistulaon 01-19-2024 Radiology Study observation (narrative) [facility] AFP TUMOR MARKEROrdered By: Francisca Alaniz on 01-18-2024 AFP.tumor marker [Mass/Vol] ng/mL NINF - 8.1 ng/mL [facility] Comment on above: This test was perfor med on the [employer] Immunoassay platform by [employer] which is a two-site sandwich chemiluminescent immunoassay. It is important to note that assays using different manufacturers and/or methods may not be comparable. Interpretation and review of laboratory results Normal [facility] CBC,PLATELETSon 01-18-2024 Erythrocyte distribution width (RBC) [Ratio] 13.9 % 10.9 - 14.3 % [facility] Hematocrit (Bld) [Volume fraction] 38.4 % Low 39.6 - 48.8 % [facility] Hemoglobin (Bld) [Mass/Vol] 12.1 g/dL Low 13.4 - 16.8 g/dL [facility] Interpretation and review of laboratory results Abnormal [facility] MCH (RBC) [Entitic mass] 27.8 pg 26.1 - 33.3 pg [facility] MCHC (RBC) [Mass/Vol] 31.5 g/dL Low 31.9 - 36.5 g/dL [facility] MCV (RBC) [Entitic vol] 88.3 fL 79.0 - 94.5 fL [facility] Platelet mean volume (Bld) [Entitic vol] 10.4 fL 8.7 - 12.3 fL [facility] Platelets (Bld) [#/Vol] 183 10*3/uL 146 - 337 K/uL [facility] RBC (Bld) [#/Vol] 4.35 10*6/uL Low [facility] WBC (Bld) [#/Vol] 3.66 10*3/uL Low 3.73 - 10. 10 K/uL [facility] Hematocrit (Bld) [Volume fraction] 38.4 % Low 39.6-48.8 [facility] Comment on above: Performed By: #### H EMOGC ####[facility] (DEFAULT)[address] [place] [address] Hemoglobin (Bld) [Mass/Vol] 12.1 g/dL Low 13.4-16.8 [facility] Comment on above: Performed By: #### H EMOGC ####[facility] (DEFAULT)[address] [place] [address] MCV (RBC) [Entitic vol] 88.3 fL Normal 79.0-94.5 [facility] Comment on above: Performed By: #### H EMOGC ####[facility] (DEFAULT)[address] [place] [address] Mean Cell Hgb 27.8 pg Normal 26.1-33.3 [facility] Comment on above: Performed By: #### H EMOGC ####[facility] (DEFAULT)[address] [place] [address] Mean Cell Hgb Conc 31.5 g/dL Low 31.9-36.5 [facility] Comment on above: Performed By: #### H EMOGC ####[facility] (DEFAULT)[address] [place] [address] Platelet mean volume (Bld) [Entitic vol] 10.4 fL Normal 8.7-12.3 [facility] Comment on above: Performed By: #### H EMOGC ####[facility] (DEFAULT)[address] [place] [address] Platelets (Bld) [#/Vol] 183 10*3/uL Normal 146-337 [facility] Comment on above: Performed By: #### H EMOGC ####[facility] (DEFAULT)[address] [place] [address] RBC (Bld) [#/Vol] 4.35 10*6/uL Low 4.38-5.83 [facility] Comment on above: Performed By: #### [facility] ####[facility] (DEFAULT)[address] [place] [address] RBC Distribution 13.9 % Normal 10.9-14.3 [facility] Comment on above: Performed By: #### H [facility] ####[facility] (DEFAULT)[address] [place] [address] WBC (Bld) [#/Vol] 3.66 10*3/uL Low 3.73-10.10 [facility] Comment on above: Performed By: #### H [facility] ####[facility] (DEFAULT)[address] [place] [address] CHEM 7 (LYTES,BUN,CREA,GLUC) on 01-18-2024 Anion gap [Moles/Vol] 11 mmol/L 7 - 17 mmol/L [facility] Chloride [Moles/Vol] 108 mmol/L 98 - 10 8 mmol/L [facility] CO2 [Moles/Vol] 26 mmol/L 21 - 31 mmol/L [facility] Creatinine [Mass/Vol] 1.00 mg/dL 0.70 - 1.30 mg/dL [facility] eGFR, CKD-EPI, Male - PINF [facility] Comment on above: Reported eGFR is bas ed on the CKD-EPI 2020 equation using creatinine, age, and sex. Glucose [Mass/Vol] 89 mg/dL 70 - 99 mg/dL [facility] Osmolality Calc [Osmolality] 295 [facility] Potassium [Moles/Vol] 3.9 mmol/L 3.5 - 5.0 mmol/L [facility] Sodium [Moles/Vol] 141 mmol/L 135 - 145 mmol/L [facility] Urea nitrogen [Mass/Vol] 16 mg/dL 7 - 25 mg/dL [facility] Urea nitrogen/Creatinine [Mass ratio] 16 mg/mg [facility] Anion gap [Moles/Vol] 11 mmol/L Normal 7-17 [facility] Comment on above: Performed By: #### M GO, CHM7, HFP, TSHQR ####[facility] (DEFAULT)[address] [place] [address] Chloride [Moles/Vol] 108 mmol/L Normal 98-108 [facility] Comment on above: Performed By: #### M GO, CHM7, HFP, TSHQR ####[facility] (DEFAULT)[address] [place] [address] CO2 [Moles/Vol] 26 mmol/L Normal 21-31 [facility] Comment on above: Performed By: #### M GO, CHM7, HFP, TSHQR ####[facility] (DEFAULT)[address] [place] [address] Creatinine [Mass/Vol] 1.00 mg/dL Normal 0.70-1.30 [facility] Comment on above: Performed By: #### M GO, CHM7, HFP, TSHQR ####[facility] (DEFAULT)[address] [place] [address] eGFR, CKD-EPI, Male > Normal >=60 [facility] Comment on above: Result Comment: Repo rted eGFR is based on the CKD-EPI 2020 equation using creatinine, age, and sex. Performed By: #### M GO, CHM7, HFP, TSHQR ####[facility] (DEFAULT)[address] [place] [address] Glucose [Mass/Vol] 89 mg/dL Normal 70-99 [facility] Comment on above: Performed By: #### M GO, CHM7, HFP, TSHQR ####[facility] (DEFAULT)[address] [place] [address] Osmolality [Osmolality] 295 mosm/kg Normal 278-305 [facility] Comment on above: Performed By: #### M GO, CHM7, HFP, TSHQR ####[facility] (DEFAULT)[address] [place] [address] Potassium [Moles/Vol] 3.9 mmol/L Normal 3.5-5.0 [facility] Comment on above: Performed By: #### M GO, CHM7, HFP, TSHQR ####[facility] (DEFAULT)[address] [place] [address] Sodium [Moles/Vol] 141 mmol/L Normal 135-145 [facility] Comment on above: Performed By: #### M GO, CHM7, HFP, TSHQR ####[facility] (DEFAULT)[address] [place] [address] Urea nitrogen [Mass/Vol] 16 mg/dL Normal 7-25 [facility] Comment on above: Performed By: #### M GO, CHM7, HFP, TSHQR ####[facility] (DEFAULT)[address] [place] [address] Urea nitrogen/Creatinine [Mass ratio] 16 mg/mg Normal [facility] Comment on above: Performed By: #### M GO, CHM7, HFP, TSHQR ####[facility] (DEFAULT)[address] [place] [address] Cardiac echo study Procedure Ordered By: Gian Carlos on 01-18-2024 Ao ASC index 1.63 cm/m2 [facility] Work Phone: Ao peak meliton 1.46 m/s [facility] Work Phone: Ao SOV index 1.56 cm/m2 [facility] Work Phone: Ao STJ index 1.25 cm/m2 [facility] Work Phone: Ao VTI 35.74 cm [facility] Work Phone: Ascending aorta 3.39 [facility]: AV LVOT peak gradient 4 mmHg [facility] Work Phone: AV mean gradient 5 mmHg [facility] Work Phone: AV peak gradient 9 mmHG [facility] Work Phone: [phone] AV valve area 3.09 cm2 [facility] Work Phone: AV Velocity Ratio 0.73 [facility] Work Phone: VEGA (continuity Vmax) 3.01 cm2 [facility] Work Phone: VEGA (continuity VTI) 3.09 cm2 [facility] Work Phone: VEGA index (continuity Vmax) 1.45 m/s [facility] Work Phone: VEGA index (continuity VTI) 1.49 cm2/m2 [facility] Work Phone: Avg e' pk meliton 0.07 m/s [facility] Work Phone: Avg E/e' ratio 19.45 [facility] Work Phone: Body surface area Derived from formula 2.08 m2 [facility] Work Phone: BP EF 62 % [facility] Work Phone: DI (Vmax) 0.73 [facility] Work Phone: DI (VTI) 0.74 m/2 [facility] Work Phone: E wave decelartion time 180.38 msec [facility] Work Phone: e' lateral pk meliton 0.0789 [facility]: e' lateral pk meliton 0.08 [facility]s [facility] Work [facility]: e' septal pk meliton 0.0653 m/s [facility] Work Phone: e' septal pk meliton 0.07 m/s [facility] Work Phone: E/A ratio 2.67 [facility] [facility] Work Phone: E/e' lateral ratio 17.62 [facility] Work Phone: E[facility]e' septal [facility] 21.29 [facility] EF SP 2CH 66 [facility] Work Phone: EF SP 4CH 58 [facility] Work Phone: FS 28 % 28 - 44 % [facility]: IVC ostium 2.30 cm [facility] Work Phone: IVS 1.11 cm [facility] Work Phone: LA AREA 2CH 24.36 cm2 [facility] Work Phone: LA area 4CH 20.36 cm2 [facility] Work Phone: LA ESV BP (MOD) [address] [facility] Work Phone: LA ESV BP (MOD) index 31 mL/m2 [facility] Work Phone: LA ESV SP 2CH (MOD) 76 mL [facility] Work Phone: LA ESV SP 4CH (MOD) 53 mL [facility] Work Phone: [phone] LV EDV BP 180 [facility] Work Phone: LV EDV SP 2CH 190 [facility] Work Phone: LV EDV SP 4CH 166 [facility] Work Phone: LV ESV BP 69 mL [facility] Work Phone: LV ESV SP 2CH 65 [facility] Work Phone: LV ESV SP 4CH 70 mL [facility] Work Phone: LV mass 254.73 g [facility] Work Phone: LV Mass Index 122.5 g/m2 [facility] Work Phone: LV RWT 0.42 [facility] Work Phone: LV stroke volume BP (ml) 111 mL [facility] Work Phone: LV stroke volume index BP 53.37 mL/m2 [facility] Work Phone: [phone] LVIDD 5.53 cm [facility] Work Phone: LVIDS 3.97 cm [facility] Work Phone: LVOT area 4.15 cm2 [facility] Work Phone: LVOT diameter 2.30 cm [facility] Work Phone: LVOT peak meliton 1.06 m/s [facility] Work Phone: LVOT peak VTI 26.61 cm [facility] Work Phone: LVOT stroke volume 111 cm3 [facility] Work Phone: LVOT stroke volume index 53.13 ml/m2 [facility] Work Phone: Mr max meliton 4.21 m/s [facility] Work Phone: MR VTI 134.50 cm [facility] Work Phone: MV mean gradient [facility]: [facility] peak gradient [facility] Work Phone: MV pk A meliton 0.52 m/s [facility] Work Phone: MV pk E meliton 1.39 m/s [facility] Work Phone: MV stenosis pressure 1/2 time 58.56 ms [facility] Work Phone: MV valve area by continuity eq 2.93 cm2 [facility] Work Phone: MV valve area p 1/2 method 3.76 cm2 [facility] Work Phone: MV VTI 37.70 cm [facility] Work Phone: MVA (continuity VTI) 2.92 cm [facility] Work Phone: [facility] AV VTI RATIO PRE STRESS 0.74 [facility] Work Phone: [facility] ECHO LV BIPLANE SYSTOLIC VOLUME INDEX 33.17 mL/m2 [facility] Work Phone: [facility] ECHO LV BP DIASTOLIC VOLUME INDEX 86.54 mL/m2 [facility] Work Phone: [facility] ECHO MR PEAK GRADIENT 70.94 mmHg [facility] Work Phone: PW 1.16 cm [facility] Work Phone: RA area 4CH (MOD) 14.50 cm2 [facility] Work [facility]: RA vol index 4CH (MOD) 18.27 mL/m2 [facility] Work Phone: Right atrium volume 4 chamber method of disks 38 mL [facility] Work Phone: RV Area diastolic 33.20 cm2 [facility] Work Phone: RV Area systolic 21.30 cm2 [facility] Work Phone: RV basal diam 4.52 cm [facility] Work Phone: RV Fractional area change 35.8 % [facility] Work Phone: RV long diam 8.96 cm [facility] Work Phone: RV mid diam 3.70 cm [facility] Work Phone: RV S' 22.01 cm/s [facility] Work Phone: RVOT peak gradient 4 mmHg [facility] Work Phone: RVOT peak meliton 0.96 m/s [facility] Work Phone: RVOT peak VTI 20.86 cm [facility] Work Phone: Sinus 3.24 cm [facility] Work Phone: STJ 2.61 cm [facility] Work Phone: Stroke Volume 111 cm/mL [facility] Work Phone: Stroke volume index 53 [facility] Work Phone: TAPSE 2.19 cm [facility] Work Phone: [facility] Work Phone: Cardiac echo study [...] echocardiography study was performed. Imaging system used: USDS. Indications Indications for study: shortness of breath. [facility] Radiology Study observation (narrative) [facility] HEPATIC FUNCTION PANELon Albumin [Mass/Vol] 3.5 g/dL 3.5 - 5.0 g/dL [facility] ALP [Catalytic activity/Vol] 70 U/L 32 - 126 U/L [facility] ALT [Catalytic activity/Vol] 8 U/L Low 10 - 52 U/L [facility] AST [Catalytic activity/Vol] 20 U/L 10 - 39 U/L [facility] Bilirubin [Mass/Vol] 1.7 mg/dL High NINF - 1.5 mg/dL [facility] Bilirubin.direct [Mass/Vol] 0.4 mg/dL High NINF - 0.3 mg/dL [facility] Protein [Mass/Vol] 6.0 g/dL Low 6.4 - 8.3 g/dL [facility] Albumin [Mass/Vol] 3.5 g/dL Normal 3.5-5.0 [facility] Comment on above: Performed By: #### M GO, CHM7, HFP, TSHQR ####[facility] (DEFAULT)[address] [place] [address] ALP [Catalytic activity/Vol] 70 U/L Normal 32-126 [facility] Comment on above: Performed By: #### M GO, CHM7, HFP, TSHQR ####[facility] (DEFAULT)[address] [place] [address] ALT [Catalytic activity/Vol] 8 U/L Low 10-52 [facility] Comment on above: Performed By: #### M GO, CHM7, HFP, TSHQR ####[facility] (DEFAULT)[address] [place] [address] AST [Catalytic activity/Vol] 20 U/L Normal 10-39 [facility] Comment on above: Performed By: #### M GO, CHM7, HFP, TSHQR ####[facility] (DEFAULT)[address] [place] [address] Bilirubin [Mass/Vol] 1.7 mg/dL High <1.5 [facility] Comment on above: Performed By: #### M GO, CHM7, HFP, TSHQR ####[facility] (DEFAULT)[address] [place] [address] Bilirubin.indirect [Mass/Vol] 0.4 mg/dL High <0.3 [facility] Comment on above: Performed By: #### M GO, CHM7, HFP, TSHQR ####[facility] (DEFAULT)[address] [place] [address] Protein [Mass/Vol] 6.0 g/dL Low 6.4-8.3 [facility] Comment on above: Performed By: #### M MERLE CHM7, HFP, TSHQR ####[facility] (DEFAULT)[address] [place] [address] MAGNESIUMon 01-18-2024 Magnesium [Mass/Vol] 1.5 mg/dL Low 1.6 - 2 .6 mg/dL [facility] Magnesium [Mass/Vol] 1.5 mg/dL Low 1.6-2.6 [facility] Comment on above: Performed By: #### M MERLE, CHM7, HFP, TSHQR ####[facility] (DEFAULT)[address] [place] [address] No Panel Informationon 01-18 Interpretation and review of laboratory results Abnormal [facility] PT,INR,PTTon 01-18-2024 aPTT Coag (PPP) [Time] 30.0 s [facility] INR Coag (Bld) [Relative time] 1.1 {INR} 0.9 - 1.1 [facility] Interpretation and review of laboratory results Abnormal [facility] PT Coag (PPP) [Time] 14.5 s High [facility] aPTT Coag (Bld) [Time] 30.0 s Normal 24.0-34.3 [facility] Comment on above: Performed By: #### P TPTT ####[facility] (DEFAULT)[address] [place] [address] INR Coag (PPP) [Relative time] 1.1 {INR} Normal 0.9-1.1 [facility] Comment on above: Performed By: #### P TPTT ####[facility] (DEFAULT)[address] [place] [address] PT Coag (PPP) [Time] 14.5 s High 11.9-14.2 [facility] Comment on above: Performed By: #### P TPTT ####[facility] (DEFAULT)[address] [place] [address]93 TSH W/FT4 REFLEXon 4 Interpretation and review of laboratory results Normal [facility] TSH Qn 2.660 m[IU]/L [facility] TSH 2.660 uIU/mL Normal 0.550-4.780 [facility] Comment on above: Performed By: #### M GO, CHM7, HFP, TSHQR ####[facility] (DEFAULT)[address] [place] [address] AFP TUMOR MARKERon 4 AFP Tumor Marker <2.2 Normal <8.1 [facility] Comment on above: Result Comment: This test was performed on the [employer] Immunoassay platform by [employer] which is a two-site sandwich chemiluminescent immunoassay. It is important to note that assays using different manufacturers and/or methods may not be comparable. Performed By: #### A FPTMR ####[facility] (DEFAULT)[address] [place] [address] DARYL AURIS SCREEN BY PCRO rdered By: Mynor Alejandro on 01-17-2024 Daryl auris Screen by PCR Not detected Not Detected [facility] Interpretation and review of laboratory results Normal [facility] This test was perfor med using a real-time PCR assay. This test was developed, and its performance characteristics determined by [facility]. It has not been cleared or approved by the FDA. The laboratory is regulated under CLIA as qualified to perform high-complexity testing. This test is used for clinical purposes. It should not be regarded as investigational or for research. [facility] CBC,PLATELETSon 01-17-2024 Erythrocyte distribution width (RBC) [Ratio] 14.0 % 10.9 - 14.3 % [facility] Hematocrit (Bld) [Volume fraction] 37.2 % Low 39.6 - 48.8 % [facility] Hemoglobin (Bld) [Mass/Vol] 12.0 g/dL Low 13.4 - 16.8 g/dL [facility] Interpretation and review of laboratory results Abnormal [facility] MCH (RBC) [Entitic mass] 27.9 pg 26.1 - 33.3 pg [facility] MCHC (RBC) [Mass/Vol] 32.3 g/dL 31.9 - 36.5 g/dL [facility] MCV (RBC) [Entitic vol] 86.5 fL 79.0 - 94.5 fL [facility] Platelet mean volume (Bld) [Entitic vol] 10.5 fL 8.7 - 12.3 fL [facility] Platelets (Bld) [#/Vol] 159 10*3/uL 146 - 337 K/uL [facility] RBC (Bld) [#/Vol] 4.30 10*6/uL Low [facility] WBC (Bld) [#/Vol] 3.69 10*3/uL Low 3.73 - 10. 10 K/uL [facility] Hematocrit (Bld) [Volume fraction] 37.2 % Low 39.6-48.8 [facility] Comment on above: Performed By: #### H [facility] ####[facility] (DEFAULT)[address] [place] [address] Hemoglobin (Bld) [Mass/Vol] 12.0 g/dL Low 13.4-16.8 [facility] Comment on above: Performed By: #### H [facility] ####[facility] (DEFAULT)[address] [place] [address] MCV (RBC) [Entitic vol] 86.5 fL Normal 79.0-94.5 [facility] Comment on above: Performed By: #### H [facility] ####[facility] (DEFAULT)[address] [place] [address] Mean Cell Hgb 27.9 pg Normal 26.1-33.3 [facility] Comment on above: Performed By: #### H EMOGC ####[facility] (DEFAULT)[address] [place] [address] Mean Cell Hgb Conc 32.3 g/dL Normal 31.9-36.5 [facility] Comment on above: Performed By: #### H EMOGC ####[facility] (DEFAULT)[address] [place] [address] Platelet mean volume (Bld) [Entitic vol] 10.5 fL Normal 8.7-12.3 [facility] Comment on above: Performed By: #### H EMOGC ####[facility] (DEFAULT)[address] [place] [address] Platelets (Bld) [#/Vol] 159 10*3/uL Normal 146-337 [facility] Comment on above: Performed By: #### H EMOGC ####[facility] (DEFAULT)[address] [place] [address] RBC (Bld) [#/Vol] 4.30 10*6/uL Low 4.38-5.83 [facility] Comment on above: Performed By: #### H EMOGC ####[facility] (DEFAULT)[address] [place] [address] RBC Distribution 14.0 % Normal 10.9-14.3 [facility] Comment on above: Performed By: #### H EMOGC ####[facility] (DEFAULT)[address] [place] [address] WBC (Bld) [#/Vol] 3.69 10*3/uL Low 3.73-10.10 [facility] Comment on above: Performed By: #### H EMOGC ####[facility] (DEFAULT)[address] [place] [address] CHEM 7 (LYTES,BUN,CREA,GLUC) on 01-17-2024 Anion gap [Moles/Vol] 13 mmol/L 7 - 17 mmol/L [facility] Chloride [Moles/Vol] 109 mmol/L High 98 - 10 8 mmol/L [facility] CO2 [Moles/Vol] 21 mmol/L 21 - 31 mmol/L [facility] Creatinine [Mass/Vol] 1.04 mg/dL 0.70 - 1.30 mg/dL [facility] eGFR, CKD-EPI, Male 86 - PINF [facility] Comment on above: Reported eGFR is bas ed on the CKD-EPI 2020 equation using creatinine, age, and sex. Glucose [Mass/Vol] 82 mg/dL 70 - 99 mg/dL [facility] Osmolality Calc [Osmolality] 292 [facility] Potassium [Moles/Vol] 4.4 mmol/L 3.5 - 5.0 mmol/L [facility] Sodium [Moles/Vol] 139 mmol/L 135 - 145 mmol/L [facility] Urea nitrogen [Mass/Vol] 17 mg/dL 7 - 25 mg/dL [facility] Urea nitrogen/Creatinine [Mass ratio] 16 mg/mg [facility] Anion gap [Moles/Vol] 13 mmol/L Normal 7-17 [facility] Comment on above: Performed By: #### C HM7, HFP, MGO ####[facility] (DEFAULT)[address] [place] [address] Chloride [Moles/Vol] 109 mmol/L High 98-108 [facility] Comment on above: Performed By: #### C HM7, HFP, MGO ####[facility] (DEFAULT)[address] [place] [address] CO2 [Moles/Vol] 21 mmol/L Normal 21-31 [facility] Comment on above: Performed By: #### C HM7, HFP, MGO ####[facility] (DEFAULT)[address] [place] [address] Creatinine [Mass/Vol] 1.04 mg/dL Normal 0.70-1.30 [facility] Comment on above: Performed By: #### C HM7, HFP, MGO ####[facility] (DEFAULT)[address] [place] [address] GFR/1.73 sq M.predicted among non-blacks MDRD (S/P/Bld) [Vol rate/Area] 86 mL/min/{1.73_m2} Normal >=60 [facility] Comment on above: Result Comment: Repo rted eGFR is based on the CKD-EPI 2020 equation using creatinine, age, and sex. Performed By: #### C HM7, HFP, MGO ####[facility] (DEFAULT)[address] [place] [address] Glucose [Mass/Vol] 82 mg/dL Normal 70-99 [facility] Comment on above: Performed By: #### C HM7, HFP, MGO ####[facility] (DEFAULT)[address] [place] [address] Osmolality [Osmolality] 292 mosm/kg Normal 278-305 [facility] Comment on above: Performed By: #### C HM7, HFP, MGO ####[facility] (DEFAULT)[address] [place] [address] Potassium [Moles/Vol] 4.4 mmol/L Normal 3.5-5.0 [facility] Comment on above: Performed By: #### C HM7, HFP, MGO ####[facility] (DEFAULT)[address] [place] [address] Sodium [Moles/Vol] 139 mmol/L Normal 135-145 [facility] Comment on above: Performed By: #### C HM7, HFP, MGO ####[facility] (DEFAULT)[address] [facility] [place] [address] Urea nitrogen [Mass/Vol] 17 mg/dL Normal 7-25 [facility] Comment on above: Performed By: #### C JASMYNE, TAVO, MGO ####[facility] (DEFAULT)[address] [place] [address] Urea nitrogen/Creatinine [Mass ratio] 16 mg/mg Normal [facility] Comment on above: Performed By: #### C JASMYNE, TAVO, MGO ####[facility] (DEFAULT)[address] [place] [address] CT ABDOMEN/PELVIS WITHOUT CO NTRASTon 01-17-2024 CT ABDOMEN/PELVIS WITHOUT CONTRAST Normal [facility] CT Abdomen and Pelvis WO con [...] unremarkable. Kidneys: Severe atrophy of the bilateral [place] kidney is without hydronephrosis. Right lower quadrant [...] unremarkable. Kidneys: Severe atrophy of the bilateral [place] kidney is without hydronephrosis. Right lower quadrant [...] middle lobe. Trace left pleural effusion. [facility] Radiology Study observation (narrative) [facility] HEPATIC FUNCTION PANELon Albumin [Mass/Vol] 3.5 g/dL 3.5 - 5.0 g/dL [facility] ALP [Catalytic activity/Vol] 73 U/L 32 - 126 U/L [facility] ALT [Catalytic activity/Vol] 7 U/L Low 10 - 52 U/L [facility] AST [Catalytic activity/Vol] 25 U/L 10 - 39 U/L [facility] Bilirubin [Mass/Vol] 1.8 mg/dL High NINF - 1.5 mg/dL [facility] Bilirubin.direct [Mass/Vol] 0.3 mg/dL High NINF - 0.3 mg/dL [facility] Protein [Mass/Vol] 6.0 g/dL Low 6.4 - 8.3 g/dL [facility] Albumin [Mass/Vol] 3.5 g/dL Normal 3.5-5.0 [facility] Comment on above: Performed By: #### C HM7, HFP, MGO ####[facility] (DEFAULT)[address] [place] [address] ALP [Catalytic activity/Vol] 73 U/L Normal 32-126 [facility] Comment on above: Performed By: #### C HM7, HFP, MGO ####[facility] (DEFAULT)[address] [place] [address] ALT [Catalytic activity/Vol] 7 U/L Low 10-52 [facility] Comment on above: Performed By: #### C HM7, HFP, MGO ####[facility] (DEFAULT)[address] [place] [address] AST [Catalytic activity/Vol] 25 U/L Normal 10-39 [facility] Comment on above: Performed By: #### C HM7, HFP, MGO ####[facility] (DEFAULT)[address] [place] [address] Bilirubin [Mass/Vol] 1.8 mg/dL High <1.5 [facility] Comment on above: Performed By: #### C HM7, HFP, MGO ####[facility] (DEFAULT)[address] [place] [address] Bilirubin.indirect [Mass/Vol] 0.3 mg/dL High <0.3 [facility] Comment on above: Performed By: #### C HM7, TAVO, MGO ####[facility] (DEFAULT)[address] [place] [address] Protein [Mass/Vol] 6.0 g/dL Low 6.4-8.3 [facility] Comment on above: Performed By: #### C HM7, TAVO, MGO ####[facility] (DEFAULT)[address] [place] [address] HISTOPLASMA AND BLASTOMYCES ANTIGEN, ENZYME IMMUNOASSAY, SERMon 01-17-2024 Histoplasma/Blastomy [place]ia Ag Result Not detected Normal Not Detected [facility] Comment on above: Result Comment: No a ntigen from Histoplasma or Blastomyces detected. Falsenegative results may occur depending on extent of disease,and/or site of infection. Repeat testing on a new specimenif clinically indicated. Performed By: #### H CORAL ####[facility] (DEFAULT)[address] [place] [address] Histoplasma/Blastomy antonia Ag Value Not detected Normal [facility] Comment on above: Result Comment: ---- ADDITIONAL INFORMATION This test was developed and its performance characteristicsdetermined by [facility] in a manner consistent with CLIArequirements. This test has not been cleared or approved bythe U.S. Food and Drug Administration.Test Performed by:[facility] [place] [address]Doj Director: Rosendo Bose M.D. Ph.D.; CLIA# [id number] Performed By: #### H ILYAG ####[facility] (DEFAULT)[address] [place] [address] MAGNESIUMon 01-17-2024 Interpretation and review of laboratory results Normal [facility] Magnesium [Mass/Vol] 1.7 mg/dL 1.6 - 2 .6 mg/dL [facility] Magnesium [Mass/Vol] 1.7 mg/dL Normal 1.6-2.6 [facility] Comment on above: Performed By: #### C HM7, HFP, MGO ####[facility] (DEFAULT)[address] [place] [address] No Panel Informationon 01-17 Interpretation and review of laboratory results Abnormal [facility] PT,INR,PTTon 01-17-2024 aPTT Coag (PPP) [Time] 29.9 s [facility] INR Coag (Bld) [Relative time] 1.1 {INR} 0.9 - 1.1 [facility] Interpretation and review of laboratory results Abnormal [facility] PT Coag (PPP) [Time] 14.5 s High [facility] aPTT Coag (Bld) [Time] 29.9 s Normal 24.0-34.3 [facility] Comment on above: Performed By: #### P TPTT ####[facility] (DEFAULT)[address] [place] [address] INR Coag (PPP) [Relative time] 1.1 {INR} Normal 0.9-1.1 [facility] Comment on above: Performed By: #### P TPTT ####[facility] (DEFAULT)[address] [place] [address] PT Coag (PPP) [Time] 14.5 s High 11.9-14.2 [facility] Comment on above: Performed By: #### P TPTT ####[facility] (DEFAULT)[address] [place] [address] B-TYPE NATRIURETIC PEPTIDE ( BRAIN)on 01-16-2024 Interpretation and review of laboratory results Abnormal [facility] Natriuretic peptide B (Bld) [Mass/Vol] 212 pg/mL High 0 - 100 pg/mL [facility] Natriuretic peptide B (Bld) [Mass/Vol] 212 pg/mL High 0-100 [facility] Comment on above: Performed By: #### B [employer] ####[facility] (DEFAULT)[address] [place] [address] CALCIUMon 01-16-2024 Calcium [Mass/Vol] 8.5 mg/dL Low 8.6 - 10. 5 mg/dL [facility] Calcium [Mass/Vol] 8.5 mg/dL Low 8.6-10.5 [facility] Comment on above: Performed By: #### C A, IPB, MGO, CHM7, HFP ####[facility] (DEFAULT)[address] [place] [address] DARYL AURIS SCREEN BY PCRo n 01-16-2024 Daryl auris Screen by PCR Not detected Normal Not Detected [facility] Comment on above: Order Comment: This test was performed using a real-time PCR assay. This test was developed, and its performance characteristics determined by [facility]. It has not been cleared or approved by the FDA. The laboratory is regulated under CLIA as qualified to perform high-complexity testing. This test is used for clinical purposes. It should not be regarded as investigational or for research. Performed By: #### C ANDIDA AURIS SCREEN BY PCR ####[facility] (DEFAULT)[address] [place] [address] CBC AND ELECTRONIC DIFFon Basophils (Bld) [#/Vol] K/uL 0.00 - 0.09 K/uL [facility] Basophils/100 WBC (Bld) 0.6 % [facility] Differential cell count method Nom (Bld) Electronic Differential [facility] Eosinophils (Bld) [#/Vol] 0.09 10*3/uL 0.00 - 0.48 K/uL [facility] Eosinophils/100 WBC (Bld) 2.5 % [facility] Erythrocyte distribution width (RBC) [Ratio] 14.0 % 10.9 - 14.3 % [facility] Hematocrit (Bld) [Volume fraction] 37.4 % Low 39.6 - 48.8 % [facility] Hemoglobin (Bld) [Mass/Vol] 12.1 g/dL Low 13.4 - 16.8 g/dL [facility] Immature granulocytes (Bld) [#/Vol] K/uL NINF - 0.07 K/uL [facility] Immature granulocytes/100 WBC (Bld) 0.3 % [facility] Interpretation and review of laboratory results Abnormal [facility] Lymphocytes (Bld) [#/Vol] 1.16 10*3/uL 0.83 - 3.57 K/uL [facility] Lymphocytes/100 WBC (Bld) 32.0 % [facility] MCH (RBC) [Entitic mass] 28.4 pg 26.1 - 33.3 pg [facility] MCHC (RBC) [Mass/Vol] 32.4 g/dL 31.9 - 36.5 g/dL [facility] MCV (RBC) [Entitic vol] 87.8 fL 79.0 - 94.5 fL [facility] Monocytes (Bld) [#/Vol] 0.43 10*3/uL 0.24 - 0.93 K/uL [facility] Monocytes/100 WBC (Bld) 11.9 % [facility] Neutrophils (Bld) [#/Vol] 1.91 10*3/uL 1.57 - 6.19 K/uL [facility] Nucleated RBC/100 WBC (Bld) [Ratio] 0.0 % [facility] Platelet mean volume (Bld) [Entitic vol] 10.1 fL 8.7 - 12.3 fL [facility] Platelets (Bld) [#/Vol] 155 10*3/uL 146 - 337 K/uL [facility] RBC (Bld) [#/Vol] 4.26 10*6/uL Low [facility] Segmented neutrophils/100 WBC (Bld) 52.7 % [facility] WBC (Bld) [#/Vol] 3.62 10*3/uL Low 3.73 - 10. 10 K/uL [facility] Abs Baso Auto < Normal 0.00-0.09 [facility] Comment on above: Performed By: #### L [id number] ####[facility] (DEFAULT)[address] [place] [address] Basophils/100 WBC (Bld) 0.6 % Normal [facility] Comment on above: Performed By: #### L [id number] ####[facility] (DEFAULT)[address] [place] [address] DIFF STATUS Electronic Differential Normal [facility] Comment on above: Performed By: #### L [id number] ####[facility] (DEFAULT)[address] [place] [address] Eosinophils (Bld) [#/Vol] 0.09 10*3/uL Normal 0.00-0.48 [facility] Comment on above: Performed By: #### L [id number] ####[facility] (DEFAULT)[address] [facility] [place] [address] Eosinophils/100 WBC (Bld) 2.5 % Normal [facility] Comment on above: Performed By: #### L [id number] ####[facility] (DEFAULT)[address] [place] [address] Hematocrit (Bld) [Volume fraction] 37.4 % Low 39.6-48.8 [facility] Comment on above: Performed By: #### L AB980 ####[facility] (DEFAULT)[address] [place] [address] Hemoglobin (Bld) [Mass/Vol] 12.1 g/dL Low 13.4-16.8 [facility] Comment on above: Performed By: #### L [id number] ####[facility] (DEFAULT)[address] [place] [address] Immature Grans % 0.3 % Normal [facility] Comment on above: Performed By: #### L [id number] ####[facility] (DEFAULT)[address] [place] [address] Immature Grans Absolute < Normal <=0.07 [facility] Comment on above: Performed By: #### L [id number] ####[facility] (DEFAULT)[address] [place] [address] Lymphocytes (Bld) [#/Vol] 1.16 10*3/uL Normal 0.83-3.57 [facility] Comment on above: Performed By: #### L [id number] ####[facility] (DEFAULT)[address] [facility] [place] [address] Lymphocytes/100 WBC (Bld) 32.0 % Normal [facility] Comment on above: Performed By: #### L [id number] ####[facility] (DEFAULT)[address] [place] [address] MCV (RBC) [Entitic vol] 87.8 fL Normal 79.0-94.5 [facility] Comment on above: Performed By: #### L [id number] ####[facility] (DEFAULT)[address] [place] [address] Mean Cell Hgb 28.4 pg Normal 26.1-33.3 [facility] Comment on above: Performed By: #### L [id number] ####[facility] (DEFAULT)[address] [place] [address] Mean Cell Hgb Conc 32.4 g/dL Normal 31.9-36.5 [facility] Comment on above: Performed By: #### L [id number] ####[facility] (DEFAULT)[address] [place] [address] Monocytes (Bld) [#/Vol] 0.43 10*3/uL Normal 0.24-0.93 [facility] Comment on above: Performed By: #### L AB980 ####[facility] (DEFAULT)[address] [place] [address] Monocytes/100 WBC (Bld) 11.9 % Normal [facility] Comment on above: Performed By: #### L [id number] ####[facility] (DEFAULT)[address] [place] [address] Nucleated RBC 0.0 /100 WBC Normal <=0.2 [facility] Comment on above: Performed By: #### L [id number] ####[facility] (DEFAULT)[address] [place] [address] Platelet mean volume (Bld) [Entitic vol] 10.1 fL Normal 8.7-12.3 [facility] Comment on above: Performed By: #### L [id number] ####[facility] (DEFAULT)[address] [place] [address] Platelets (Bld) [#/Vol] 155 10*3/uL Normal 146-337 [facility] Comment on above: Performed By: #### L AB980 ####[facility] (DEFAULT)[address] [place] [address] RBC (Bld) [#/Vol] 4.26 10*6/uL Low 4.38-5.83 [facility] Comment on above: Performed By: #### L AB980 ####[facility] (DEFAULT)[address] [place] [address] RBC Distribution 14.0 % Normal 10.9-14.3 [facility] Comment on above: Performed By: #### L [id number] ####[facility] (DEFAULT)[address] [place] [address] Segs + Bands Auto 52.7 % Normal [facility] Comment on above: Performed By: #### L AB980 ####[facility] (DEFAULT)[address] [place] [address] Segs + Bands,Absolute Auto 1.91 K/uL Normal 1.57-6.19 [facility] Comment on above: Performed By: #### L AB980 ####[facility] (DEFAULT)[address] [place] [address] WBC (Bld) [#/Vol] 3.62 10*3/uL Low 3.73-10.10 [facility] Comment on above: Performed By: #### L AB980 ####[facility] (DEFAULT)[address] [place] [address] CHEM 7 (LYTES,BUN,CREA,GLUC) on 01-16-2024 Anion gap [Moles/Vol] 11 mmol/L 7 - 17 mmol/L [facility] Chloride [Moles/Vol] 108 mmol/L 98 - 10 8 mmol/L [facility] CO2 [Moles/Vol] 24 mmol/L 21 - 31 mmol/L [facility] Creatinine [Mass/Vol] 1.04 mg/dL 0.70 - 1.30 mg/dL [facility] eGFR, CKD-EPI, Male 86 - PINF [facility] Comment on above: Reported eGFR is bas ed on the CKD-EPI 2020 equation using creatinine, age, and sex. Glucose [Mass/Vol] 95 mg/dL 70 - 99 mg/dL [facility] Osmolality Calc [Osmolality] 293 [facility] Potassium [Moles/Vol] 4.0 mmol/L 3.5 - 5.0 mmol/L [facility] Sodium [Moles/Vol] 139 mmol/L 135 - 145 mmol/L [facility] Urea nitrogen [Mass/Vol] 19 mg/dL 7 - 25 mg/dL [facility] Urea nitrogen/Creatinine [Mass ratio] 18 mg/mg [facility] Anion gap [Moles/Vol] 11 mmol/L Normal - [facility] Comment on above: Performed By: #### C A, IPB, MGO, CHM7, HFP ####[facility] (DEFAULT)[address] [place] [address] Chloride [Moles/Vol] 108 mmol/L Normal 98-108 [facility] Comment on above: Performed By: #### C A, IPB, MGO, CHM7, HFP ####[facility] (DEFAULT)[address] [place] [address] CO2 [Moles/Vol] 24 mmol/L Normal 21-31 [facility] Comment on above: Performed By: #### C A, IPB, MGO, CHM7, HFP ####[facility] (DEFAULT)[address] [place] [address] Creatinine [Mass/Vol] 1.04 mg/dL Normal 0.70-1.30 [facility] Comment on above: Performed By: #### C A, IPB, MGO, CHM7, HFP ####[facility] (DEFAULT)[address] [place] [address] GFR/1.73 sq M.predicted among non-blacks MDRD (S/P/Bld) [Vol rate/Area] 86 mL/min/{1.73_m2} Normal >=60 [facility] Comment on above: Result Comment: Repo rted eGFR is based on the CKD-EPI 2020 equation using creatinine, age, and sex. Performed By: #### C A, IPB, MGO, CHM7, HFP ####[facility] (DEFAULT)[address] [place] [address] Glucose [Mass/Vol] 95 mg/dL Normal 70-99 [facility] Comment on above: Performed By: #### C A, IPB, MGO, CHM7, HFP ####[facility] (DEFAULT)[address] [place] [address] Osmolality [Osmolality] 293 mosm/kg Normal 278-305 [facility] Comment on above: Performed By: #### C A, IPB, MGO, CHM7, HFP ####[facility] (DEFAULT)[address] [place] [address] Potassium [Moles/Vol] 4.0 mmol/L Normal 3.5-5.0 [facility] Comment on above: Performed By: #### C A, IPB, MGO, CHM7, HFP ####[facility] (DEFAULT)[address] [place] [address] Sodium [Moles/Vol] 139 mmol/L Normal 135-145 [facility] Comment on above: Performed By: #### C A, IPB, MGO, CHM7, HFP ####[facility] (DEFAULT)[address] [place] [address] Urea nitrogen [Mass/Vol] 19 mg/dL Normal 7-25 [facility] Comment on above: Performed By: #### C A, IPB, MGO, CHM7, HFP ####[facility] (DEFAULT)[address] [facility] [place] [address] Urea nitrogen/Creatinine [Mass ratio] 18 mg/mg Normal [facility] Comment on above: Performed By: #### C A, IPB, MGO, CHM7, HFP ####[facility] (DEFAULT)[address] [facility] [place] [address] D-DIMER,QUANTITATIVEOrdered By: Shaji Kelly on 01-16-2024 Fibrin D-dimer FEU (PPP) [Mass/Vol] 0.67 [facility] Comment on above: The D-Dimer assay is intended for use in conjuction with a clinical pretest probability (PTP) assessment model to exclude pulmonary embolism (PE) and as an aid in the diagnosis of Deep Vein Thrombosis (DVT) in outpatients suspected of PE or DVT. For the assay in use at [facility] ([facility]), a cutoff of <0.50 mcg/mL has a Negative Predictive Value of 99.7% for exclusion of DVT in low and moderate PTP patients. Interpretation and review of laboratory results Abnormal [facility] D-DIMER,QUANTITATIVEon 01-16 D-Dimer, High Sensitivity 0.67 mcg/mL FEU High <0.50 [facility] Comment on above: Result Comment: The D-Dimer assay is intended for use in conjuction with a clinical pretest probability (PTP) assessment model to exclude pulmonary embolism (PE) and as an aid in the diagnosis of Deep Vein Thrombosis (DVT) in outpatients suspected of PE or DVT. For the assay in use at [facility] ([facility]), a cutoff of <0.50 mcg/mL has a Negative Predictive Value of 99.7% for exclusion of DVT in low and moderate PTP patients. Performed By: #### P TPTT, HSDDI ####[facility] (DEFAULT)[address] [place] [address] HEPATIC FUNCTION PANELon Albumin [Mass/Vol] 3.7 g/dL 3.5 - 5.0 g/dL [facility] ALP [Catalytic activity/Vol] 70 U/L 32 - 126 U/L [facility] ALT [Catalytic activity/Vol] 8 U/L Low 10 - 52 U/L [facility] AST [Catalytic activity/Vol] 21 U/L 10 - 39 U/L [facility] Bilirubin [Mass/Vol] 1.9 mg/dL High NINF - 1.5 mg/dL [facility] Bilirubin.direct [Mass/Vol] 0.4 mg/dL High NINF - 0.3 mg/dL [facility] Protein [Mass/Vol] 6.1 g/dL Low 6.4 - 8.3 g/dL [facility] Albumin [Mass/Vol] 3.7 g/dL Normal 3.5-5.0 [facility] Comment on above: Performed By: #### C A, IPB, MGO, CHM7, HFP ####[facility] (DEFAULT)[address] [place] [address] ALP [Catalytic activity/Vol] 70 U/L Normal 32-126 [facility] Comment on above: Performed By: #### C A, IPB, MGO, CHM7, HFP ####[facility] (DEFAULT)[address] [place] [address] ALT [Catalytic activity/Vol] 8 U/L Low 10-52 [facility] Comment on above: Performed By: #### C A, IPB, MGO, CHM7, HFP ####[facility] (DEFAULT)[address] [place] [address] AST [Catalytic activity/Vol] 21 U/L Normal 10-39 [facility] Comment on above: Performed By: #### C A, IPB, MGO, CHM7, HFP ####[facility] (DEFAULT)[address] [place] [address] Bilirubin [Mass/Vol] 1.9 mg/dL High <1.5 [facility] Comment on above: Performed By: #### C A, IPB, MGO, CHM7, HFP ####[facility] (DEFAULT)[address] [place] [address] Bilirubin.indirect [Mass/Vol] 0.4 mg/dL High <0.3 [facility] Comment on above: Performed By: #### C A, IPB, MGO, CHM7, HFP ####[facility] (DEFAULT)[address] [place] [address] Protein [Mass/Vol] 6.1 g/dL Low 6.4-8.3 [facility] Comment on above: Performed By: #### C A, IPB, MGO, CHM7, HFP ####[facility] (DEFAULT)[address] [place] [address] MAGNESIUMon 01-16-2024 Magnesium [Mass/Vol] 1.7 mg/dL 1.6 - 2 .6 mg/dL [facility] Magnesium [Mass/Vol] 1.7 mg/dL Normal 1.6-2.6 [facility] Comment on above: Performed By: #### JO ANN Willis MGO, HELENM7, HFP ####[facility] (DEFAULT)[address] [place] [address] No Panel Informationon 01-16 Interpretation and review of laboratory results Abnormal [facility] Interpretation and review of laboratory results Normal [facility] PHOSPHATE, INORGANICon 01-16 Phosphate [Mass/Vol] 4.1 mg/dL 2.2 - 4 .6 mg/dL [facility] Phosphorous 4.1 mg/dL Normal 2.2-4.6 [facility] Comment on above: Performed By: #### JO ANN Willis, DOMENICA, CHM7, HFP ####[facility] (DEFAULT)[address] [place] [address] PT,INR,PTTon 01-16-2024 aPTT Coag (PPP) [Time] 29.6 s [facility] INR Coag (Bld) [Relative time] 1.2 {INR} High 0.9 - 1.1 [facility] Interpretation and review of laboratory results Abnormal [facility] PT Coag (PPP) [Time] 14.9 s High [facility] aPTT Coag (Bld) [Time] 29.6 s Normal 24.0-34.3 [facility] Comment on above: Performed By: #### P TPTT, HSDDI ####[facility] (DEFAULT)[address] [place] [address] INR Coag (PPP) [Relative time] 1.2 {INR} High 0.9-1.1 [facility] Comment on above: Performed By: #### P TPTT, HSDDI ####[facility] (DEFAULT)[address] [place] [address] PT Coag (PPP) [Time] 14.9 s High 11.9-14.2 [facility] Comment on above: Performed By: #### P TPTT, HSDDI ####[facility] (DEFAULT)[address] [place] [address] TACROLIMUS LEVEL, TROUGH (NC E DRUG LEVEL)Ordered By: Jimy Castillo on 01-16-2024 Interpretation and review of laboratory results Normal [facility] Tacrolimus (Bld) [Mass/Vol] 5.7 ng/mL Bone Marrow Transplant: 4.0-12.0, Therapeutic: 5.0-15.0 [facility] Method performed is a chemiluminescent microparticle immunoasssay on the [employer] i2000. The range is based on experience at [facility] and users should be aware that target concentrations vary widely depending on concomitant therapy, time post-transplant, and desired degree of immunosuppression. [facility] TACROLIMUS LEVEL, TROUGH (NC E DRUG LEVEL)on 01-16-2024 Tacrolimus, Trough 5.7 ng/mL Normal Bone Susana ow Transplant: 4.0-12.0, Therapeutic: 5.0-15.0 [facility] Comment on above: Order Comment: Pleas e draw at specified interval PRIOR to dose. Do not hold dose to wait for level. Specimens batched twice per day, (M-F) and once per day weekendsMethod performed is a chemiluminescent microparticle immunoasssay on the [employer] i2000.The range is based on experience at [facility] and users should be aware that target concentrations vary widely depending on concomitant therapy, time post-transplant, and desired degree of immunosuppression. Performed By: #### T ACRO ####[facility] (DEFAULT)[address] [place] [address] US ABDOMEN LIVER DOPPLERon 0 01-16-2024 US ABDOMEN LIVER DOPPLER Normal [facility] US.doppler Abdominal vessels on 01-16-2024 IMPRESSION: [...] pleural effusion. Trace right upper quadrant ascites. [facility] Radiology Study [facility] (narrative) [facility].do[facility] Abdominal vessels Ordered By: Iona Duran on 01-16-2024 [facility] Work Phone: XR CHEST PA AND LATERAL 2 EWSon 01-16-2024 XR CHEST PA AND LATERAL 2 VIEWS Normal [facility] XR Chest PA and Lateralon IMPRESSION: Moderate right pleural effusion. OLOGY EXAM: XR CHEST PA AN D LATERAL 2 VIEWS, 01/16/2024 12:34 PM COMPARISON: September 04, 2023 CLINICAL INDICATIONS: evaluate R pleural effusion and opacity RELEVANT CLINICAL HISTORY: FINDINGS: (Adequate technique) Implanted Devices: None Lungs: Clear, without mass, interstitial disease, or consolidation. Pleural Spaces: Moderate right effusion. No pneumothorax. Mediastinum and Ussan: Normal Cardiac silhouette and great vessels: Cardiomegaly. [...] Normal IMPRESSION IMPRESSION: Moderate right pleural effusion. [facility] Radiology Study observation (narrative) [facility] XR Chest PA and LateralOrder ed By: Daisha Patterson on 01-16-2024 [facility] Work Phone: ALL CBC WITH AUTO DIFFon BASOPHILS ABSOLUTE AUTO 0.0 [facility] Basophils/100 WBC (Bld) 0.5 % 0.2 - 2.0 % [facility] Eosinophils/100 WBC (Bld) 2.8 % 0.9 [...] vol] 88.6 fL 80.0 - 94.[address] [facility] [address] MONOCYTES ABSOLUTE AUTO 0.[address] [facility] Monocytes/100 WBC (Bld) 11.9 % 1.7 - 12.0 % [facility] NEUTROPHILS ABSOLUTE AUTO 1.[address] [facility] Neutrophils/100 WBC (Bld) 47.0 % 43.0 - 75.0 % [facility] Platelet mean volume (Bld) [Entitic vol] 10.3 fL 9.5 - 13.5 fL [facility] PLT 180 [facility] RBC 4.93 [facility] WBC 4.0 [facility] [...] 9.5 - 13.5 fL [facility] EO # 0.1 [facility] PLT 180 [facility] RBC 5.01 [facility] WBC 3.9 Low [facility] CHEM 7 (LYTES,BUN,CREA,GLUC) on 09-11-2023 Anion gap [Moles/Vol] 13 mmol/L 7 - 17 mmol/L [facility] Chloride [Moles/Vol] 111 mmol/L High 98 - 10 8 mmol/L [facility] CO2 [Moles/Vol] 20 mmol/L Low 21 - 31 mmol/L [facility] Creatinine [Mass/Vol] 1.13 mg/dL 0.70 - 1.30 mg/dL [facility] eGFR, CKD-EPI, Male 78 - PINF [facility] Glucose [Mass/Vol] 109 mg/dL High 70 - 99 mg/dL [facility] Interpretation and review of laboratory results Abnormal [facility] Osmolality Calc [Osmolality] 295 [facility] Potassium [Moles/Vol] 4.3 mmol/L 3.5 - 5.0 mmol/L [facility] Sodium [Moles/Vol] 140 mmol/L 135 - 145 mmol/L [facility] Urea nitrogen [Mass/Vol] 16 mg/dL 7 - 25 mg/dL [facility] Urea nitrogen/Creatinine [Mass ratio] 14 mg/mg [facility] Anion gap [Moles/Vol] 13 mmol/L Normal 7-17 [facility] Comment on above: Performed By: #### NATHANIEL RAMÍREZ ####[facility] (DEFAULT)[address] [place] [address] Chloride [Moles/Vol] 111 mmol/L High 98-108 [facility] Comment on above: Performed By: #### NATHANIEL RAMÍREZ ####[facility] (DEFAULT)[address] [place] [address] CO2 [Moles/Vol] 20 mmol/L Low 21-31 [facility] Comment on above: Performed By: #### NATHANIEL RAMÍREZ ####[facility] (DEFAULT)[address] [place] [address] Creatinine [Mass/Vol] 1.13 mg/dL Normal 0.70-1.30 [facility] Comment on above: Performed By: #### Rod BLOOM CHM7 ####[facility] (DEFAULT)[address] [place] [address] GFR/1.73 sq M.predicted among non-blacks MDRD (S/P/Bld) [Vol rate/Area] 78 mL/min/{1.73_m2} Normal >=60 [facility] Comment on above: Result Comment: Repo rted eGFR is based on the CKD-EPI 2020 equation using creatinine, age, and sex. Performed By: #### TJ RAMÍREZ7 ####[facility] (DEFAULT)[address] [place] [address] Glucose [Mass/Vol] 109 mg/dL High 70-99 [facility] Comment on above: Performed By: #### Rod BLOOM CHM7 ####[facility] (DEFAULT)[address] [place] [address] Osmolality [Osmolality] 295 mosm/kg Normal 278-305 [facility] Comment on above: Performed By: #### Rod BLOOM CHM7 ####[facility] (DEFAULT)[address] [place] [address] Potassium [Moles/Vol] 4.3 mmol/L Normal 3.5-5.0 [facility] Comment on above: Performed By: #### Rod BLOOM CHM7 ####[facility] (DEFAULT)[address] [place] [address] Sodium [Moles/Vol] 140 mmol/L Normal 135-145 [facility] Comment on above: Performed By: #### Rod BLOOM CHM7 ####[facility] (DEFAULT)[address] [place] [address] Urea nitrogen [Mass/Vol] 16 mg/dL Normal 7-25 [facility] Comment on above: Performed By: #### Rod BLOOM CHM7 ####[facility] (DEFAULT)[address] [place] [address], [place] [address] Urea nitrogen/Creatinine [Mass ratio] 14 mg/mg Normal [facility] Comment on above: Performed By: #### NATHANIEL RAMÍREZ ####[facility] (DEFAULT)[address] [place] [address] GLUCOSE POCon 09-11-2023 Glucose [Mass/Vol] 108 mg/dL High 70 - 99 mg/dL [facility] Interpretation and review of laboratory results Abnormal [facility] POC Sample Type CAPBL [facility] Legionella sp identified Org specific cx Nom (Unsp spec)on 09-11-2023 Bacteria identified Cx Nom (Unsp spec) NO GROWTH DAY 7 OF 7 [facility] MAGNESIUMon 09-11-2023 Interpretation and review of laboratory results Normal [facility] Magnesium [Mass/Vol] 1.6 mg/dL 1.6 - 2 .6 mg/dL [facility] Magnesium [Mass/Vol] 1.6 mg/dL Normal 1.6-2.6 [facility] Comment on above: Performed By: #### NATHANIEL RAMÍREZ ####[facility] (DEFAULT)[address] [place] [address] No Panel Informationon 09-11 [facility] TACROLIMUS LEVEL, TROUGH (NC E DRUG LEVEL)on 09-11-2023 Interpretation and review of laboratory results Normal [facility] Tacrolimus (Bld) [Mass/Vol] 11.5 ng/mL [facility] Tacrolimus, Trough 11.5 ng/mL Normal Bone Susana ow Transplant: 4.0-12.0, Therapeutic: 5.0-15.0 [facility] Comment on above: Order Comment: Pleas e draw at specified interval PRIOR to dose. Do not hold dose to wait for level. Specimens batched twice per day, (M-F) and once per day weekendsMethod performed is a chemiluminescent microparticle immunoasssay on the [employer] i2000.The range is based on experience at [facility] and users should be aware that target concentrations vary widely depending on concomitant therapy, time post-transplant, and desired degree of immunosuppression. Performed By: #### T ACRO ####[facility] (DEFAULT)[address] [place] [address] CBC,PLATELETSon 09-10-2023 Erythrocyte distribution width (RBC) [Ratio] 13.9 % 10.9 - 14.3 % [facility] Hematocrit (Bld) [Volume fraction] 40.0 % 39.6 - 48.8 % [facility] Hemoglobin (Bld) [Mass/Vol] 12.7 g/dL Low 13.4 - 16.8 g/dL [facility] Interpretation and review of laboratory results Abnormal [facility] MCH (RBC) [Entitic mass] 27.3 pg 26.1 - 33.3 pg [facility] MCHC (RBC) [Mass/Vol] 31.8 g/dL Low 31.9 - 36.5 g/dL [facility] MCV (RBC) [Entitic vol] 86.0 fL 79.0 - 94.5 fL [facility] Platelet mean volume (Bld) [Entitic vol] 9.5 fL 8.7 - 12.3 fL [facility] Platelets (Bld) [#/Vol] 225 10*3/uL 146 - 337 K/uL [facility] RBC (Bld) [#/Vol] 4.65 10*6/uL [facility] WBC (Bld) [#/Vol] 6.52 10*3/uL 3.73 - 10. 10 K/uL [facility] Hematocrit (Bld) [Volume fraction] 40.0 % Normal 39.6-48.8 [facility] Comment on above: Performed By: #### H [facility] ####[facility] (DEFAULT)[address] [place] [address] Hemoglobin (Bld) [Mass/Vol] 12.7 g/dL Low 13.4-16.8 [facility] Comment on above: Performed By: #### H EMOGC ####[facility] (DEFAULT)[address] [place] [address] MCV (RBC) [Entitic vol] 86.0 fL Normal 79.0-94.5 [facility] Comment on above: Performed By: #### H EMOGC ####[facility] (DEFAULT)[address] [place] [address] Mean Cell Hgb 27.3 pg Normal 26.1-33.3 [facility] Comment on above: Performed By: #### H EMOGC ####[facility] (DEFAULT)[address] [place] [address] Mean Cell Hgb Conc 31.8 g/dL Low 31.9-36.5 [facility] Comment on above: Performed By: #### H EMOGC ####[facility] (DEFAULT)[address] [place] [address] Platelet mean volume (Bld) [Entitic vol] 9.5 fL Normal 8.7-12.3 [facility] Comment on above: Performed By: #### H EMOGC ####[facility] (DEFAULT)[address] [place] [address] Platelets (Bld) [#/Vol] 225 10*3/uL Normal 146-337 [facility] Comment on above: Performed By: #### H EMOGC ####[facility] (DEFAULT)[address] [place] [address] RBC (Bld) [#/Vol] 4.65 10*6/uL Normal 4.38-5.83 [facility] Comment on above: Performed By: #### H EMOGC ####[facility] (DEFAULT)[address] [place] [address] RBC Distribution 13.9 % Normal 10.9-14.3 [facility] Comment on above: Performed By: #### [facility] ####[facility] (DEFAULT)[address] [place] [address] WBC (Bld) [#/Vol] 6.52 10*3/uL Normal 3.73-10.10 [facility] Comment on above: Performed By: #### [facility] ####[facility] (DEFAULT)[address] [place] [address] CHEM 7 (LYTES,BUN,CREA,GLUC) on 09-10-2023 Anion gap [Moles/Vol] 13 mmol/L 7 - 17 mmol/L [facility] Chloride [Moles/Vol] 111 mmol/L High 98 - 10 8 mmol/L [facility] CO2 [Moles/Vol] 20 mmol/L Low 21 - 31 mmol/L [facility] Creatinine [Mass/Vol] 1.27 mg/dL 0.70 - 1.30 mg/dL [facility] eGFR, CKD-EPI, Male 68 - PINF [facility] Glucose [Mass/Vol] 100 mg/dL High 70 - 99 mg/dL [facility] Osmolality Calc [Osmolality] 293 [facility] Potassium [Moles/Vol] 4.4 mmol/L 3.5 - 5.0 mmol/L [facility] Sodium [Moles/Vol] 140 mmol/L 135 - 145 mmol/L [facility] Urea nitrogen [Mass/Vol] 12 mg/dL 7 - 25 mg/dL [facility] Urea nitrogen/Creatinine [Mass ratio] 9 mg/mg [facility] Anion gap [Moles/Vol] 13 mmol/L Normal 7-17 [facility] Comment on above: Performed By: #### NATHANIEL RAMÍREZ, [facility] ####[facility] (DEFAULT)[address] [place] [address] Chloride [Moles/Vol] 111 mmol/L High 98-108 [facility] Comment on above: Performed By: #### M NATHANIEL BLOOM, HFP ####[facility] (DEFAULT)[address] [place] [address] CO2 [Moles/Vol] 20 mmol/L Low 21-31 [facility] Comment on above: Performed By: #### NATHANIEL RAMÍREZ, HFP ####[facility] (DEFAULT)[address] [place] [address] Creatinine [Mass/Vol] 1.27 mg/dL Normal 0.70-1.30 [facility] Comment on above: Performed By: #### NATHANIEL RAMÍREZ, HFP ####[facility] (DEFAULT)[address] [place] [address] GFR/1.73 sq M.predicted among non-blacks MDRD (S/P/Bld) [Vol rate/Area] 68 mL/min/{1.73_m2} Normal >=60 [facility] Comment on above: Result Comment: Repo rted eGFR is based on the CKD-EPI 2020 equation using creatinine, age, and sex. Performed By: #### NATHANIEL RAMÍREZ, HFP ####[facility] (DEFAULT)[address] [place] [address], [place] [address] Glucose [Mass/Vol] 100 mg/dL High 70-99 [facility] Comment on above: Performed By: #### NATHANIEL RAMÍREZ, HFP ####[facility] (DEFAULT)[address] [place] [address] Osmolality [Osmolality] 293 mosm/kg Normal 278-305 [facility] Comment on above: Performed By: #### NATHANIEL RAMÍREZ, HFP ####[facility] (DEFAULT)[address] [place] [address] Potassium [Moles/Vol] 4.4 mmol/L Normal 3.5-5.0 [facility] Comment on above: Performed By: #### NATHANIEL RAMÍREZ, HFP ####[facility] (DEFAULT)[address] [facility] [place] [address] Sodium [Moles/Vol] 140 mmol/L Normal 135-145 [facility] Comment on above: Performed By: #### M NATHANIEL BLOOM, HFP ####[facility] (DEFAULT)[address] [place] [address] Urea nitrogen [Mass/Vol] 12 mg/dL Normal 7-25 [facility] Comment on above: Performed By: #### M NATHANIEL BLOOM, HFP ####[facility] (DEFAULT)[address] [place] [address] Urea nitrogen/Creatinine [Mass ratio] 9 mg/mg Normal [facility] Comment on above: Performed By: #### NATHANIEL RAMÍREZ, HFP ####[facility] (DEFAULT)[address] [facility] [place] [address] HEPATIC FUNCTION PANELon Albumin [Mass/Vol] 3.3 g/dL Low 3.5 - 5.0 g/dL [facility] ALP [Catalytic activity/Vol] 143 U/L High 32 - 126 U/L [facility] ALT [Catalytic activity/Vol] 28 U/L 10 - 52 U/L [facility] AST [Catalytic activity/Vol] 29 U/L 10 - 39 U/L [facility] Bilirubin [Mass/Vol] 0.9 mg/dL [facility] 1.[facility] mg/dL [facility] Bilirubin.direct [Mass/Vol] 0.2 mg/dL NINF - 0.3 mg/dL [facility] Protein [Mass/Vol] 6.8 g/dL 6.4 - 8.3 g/dL [facility] Albumin [Mass/Vol] 3.3 g/dL Low 3.5-5.0 [facility] Comment on above: Performed By: #### NATHANIEL RAMÍREZ, HFP ####[facility] (DEFAULT)[address] [facility] [place] [address] ALP [Catalytic activity/Vol] 143 U/L High 32-126 [facility] Comment on above: Performed By: #### M NATHANIEL BLOOM, HFP ####[facility] (DEFAULT)[address] [place] [address] ALT [Catalytic activity/Vol] 28 U/L Normal 10-52 [facility] Comment on above: Performed By: #### NATHANIEL RAMÍREZ, HFP ####[facility] (DEFAULT)[address] [place] [address] AST [Catalytic activity/Vol] 29 U/L Normal 10-39 [facility] Comment on above: Performed By: #### NATHANIEL RAMÍREZ, HFP ####[facility] (DEFAULT)[address] [place] [address] Bilirubin [Mass/Vol] 0.9 mg/dL Normal <1.5 [facility] Comment on above: Performed By: #### NATHANIEL RAMÍREZ, HFP ####[facility] (DEFAULT)[address] [place] [address] Bilirubin.indirect [Mass/Vol] 0.2 mg/dL Normal <0.3 [facility] Comment on above: Performed By: #### TJ RAMÍREZ7, HFP ####[facility] (DEFAULT)[address] [place] [address] Protein [Mass/Vol] 6.8 g/dL Normal 6.4-8.3 [facility] Comment on above: Performed By: #### NATHANIEL RAMÍREZ, HFP ####[facility] (DEFAULT)[address] [place] [address] MAGNESIUMon 09-10-2023 Interpretation and review of laboratory results Normal [facility] Magnesium [Mass/Vol] 1.9 mg/dL 1.6 - 2 .6 mg/dL [facility] Magnesium [Mass/Vol] 1.9 mg/dL Normal 1.6-2.6 [facility] Comment on above: Performed By: #### M GO, CHM7, HFP ####[facility] (DEFAULT)[address] [place] [address] No Panel Informationon 09-10 Interpretation and review of laboratory results Abnormal [facility] TACROLIMUS LEVEL, TROUGH (NC E DRUG LEVEL)Ordered By: Jimy Castillo on 09-10-2023 Interpretation and review of laboratory results Normal [facility] Tacrolimus (Bld) [Mass/Vol] 11.8 ng/mL [facility] TACROLIMUS LEVEL, TROUGH (NC E DRUG LEVEL)on 09-10-2023 Tacrolimus, Trough 11.8 ng/mL Normal [facility] Susana ow Transplant: 4.0-12.0, Therapeutic: 5.0-15.0 [facility] Comment on above: Order Comment: Pleas e draw at specified interval PRIOR to dose. Do not hold dose to wait for level. Specimens batched twice per day, (M-F) and once per day weekendsMethod performed is a chemiluminescent microparticle immunoasssay on the [employer] i2000.The range is based on experience at [facility] and users should be aware that target concentrations vary widely depending on concomitant therapy, time post-transplant, and desired degree of immunosuppression. Performed By: #### T ACRO ####[facility] (DEFAULT)[address] [place] [address] CHEM 7 (LYTES,BUN,CREA,GLUC) on 09-09-2023 Anion gap [Moles/Vol] 14 mmol/L 7 - 17 mmol/L [facility] Chloride [Moles/Vol] 113 mmol/L High 98 - 10 8 mmol/L [facility] CO2 [Moles/Vol] 18 mmol/L Low 21 - 31 mmol/L [facility] Creatinine [Mass/Vol] 1.03 mg/dL 0.70 - 1.30 mg/dL [facility] eGFR, CKD-EPI, Male 87 - PINF [facility] Glucose [Mass/Vol] 106 mg/dL High 70 - 99 mg/dL [facility] Interpretation and review of laboratory results Abnormal [facility] Osmolality Calc [Osmolality] 294 [facility] Potassium [Moles/Vol] 4.0 mmol/L 3.5 - 5.0 mmol/L [facility] Sodium [Moles/Vol] 141 mmol/L 135 - 145 mmol/L [facility] Urea nitrogen [Mass/Vol] 10 mg/dL 7 - 25 mg/dL [facility] Urea nitrogen/Creatinine [Mass ratio] 10 mg/mg [facility] Anion gap [Moles/Vol] 14 mmol/L Normal 7-17 [facility] Comment on above: Performed By: #### JO ANN RAMÍREZ, CHM7 ####[facility] (DEFAULT)[address] [facility] [place] [address] Chloride [Moles/Vol] 113 mmol/L High 98-108 [facility] Comment on above: Performed By: #### JO ANN RAMÍREZ, CHM7 ####[facility] (DEFAULT)[address] [facility] [place] [address] CO2 [Moles/Vol] 18 mmol/L Low 21-31 [facility] Comment on above: Performed By: #### JO ANN RAMÍREZ, CHM7 ####[facility] (DEFAULT)[address] [facility] [place] [address] Creatinine [Mass/Vol] 1.03 mg/dL Normal 0.70-1.30 [facility] Comment on above: Performed By: #### JO ANN RAMÍREZ, CHM7 ####[facility] (DEFAULT)[address] [place] [address] GFR/1.73 sq M.predicted among non-blacks MDRD (S/P/Bld) [Vol rate/Area] 87 mL/min/{1.73_m2} Normal >=60 [facility] Comment on above: Result Comment: Repo rted eGFR is based on the CKD-EPI 2020 equation using creatinine, age, and sex. Performed By: #### JO ANN RAMÍREZ CHM7 ####[facility] (DEFAULT)[address] [place] [address] Glucose [Mass/Vol] 106 mg/dL High 70-99 [facility] Comment on above: Performed By: #### JO ANN RAMÍREZ CHM7 ####[facility] (DEFAULT)[address] [place] [address] Osmolality [Osmolality] 294 mosm/kg Normal 278-305 [facility] Comment on above: Performed By: #### JO ANN RAMÍREZ CHM7 ####[facility] (DEFAULT)[address] [place] [address] Potassium [Moles/Vol] 4.0 mmol/L Normal 3.5-5.0 [facility] Comment on above: Performed By: #### JO ANN RAMÍREZ CHM7 ####[facility] (DEFAULT)[address] [place] [address] Sodium [Moles/Vol] 141 mmol/L Normal 135-145 [facility] Comment on above: Performed By: #### JO ANN RAMÍREZ, CHM7 ####[facility] (DEFAULT)[address] [place] [address] Urea nitrogen [Mass/Vol] 10 mg/dL Normal 7-25 [facility] Comment on above: Performed By: #### JO ANN RAMÍREZ, CHM7 ####[facility] (DEFAULT)[address] [place] [address] Urea nitrogen/Creatinine [Mass ratio] 10 mg/mg Normal [facility] Comment on above: Performed By: #### JO ANN RAMÍREZ, CHM7 ####[facility] (DEFAULT)[address] [place] [address] MAGNESIUMon 09-09-2023 Magnesium [Mass/Vol] 1.6 mg/dL 1.6 - 2 .6 mg/dL [facility] Magnesium [Mass/Vol] 1.6 mg/dL Normal 1.6-2.6 [facility] Comment on above: Performed By: #### M JO ANN BLOOM CHM7 ####[facility] (DEFAULT)[address] [place] [address] No Panel Informationon 09-09 Interpretation and review of laboratory results Normal [facility] PHOSPHATE, INORGANICon 09-09 Phosphate [Mass/Vol] 3.8 mg/dL 2.2 - 4 .6 mg/dL [facility] Phosphorous 3.8 mg/dL Normal 2.2-4.6 [facility] Comment on above: Performed By: #### M JO ANN BLOOM CHM7 ####[facility] (DEFAULT)[address] [place] [address] TACROLIMUS LEVEL, TROUGH (NC E DRUG LEVEL)on 09-09-2023 Interpretation and review of laboratory results Normal [facility] Tacrolimus (Bld) [Mass/Vol] 9.2 ng/mL [facility] Tacrolimus, Trough 9.2 ng/mL Normal Bone Susana ow Transplant: 4.0-12.0, Therapeutic: 5.0-15.0 [facility] Comment on above: Order Comment: Pleas e draw at specified interval PRIOR to dose. Do not hold dose to wait for level. Specimens batched twice per day, (M-F) and once per day weekendsMethod performed is a chemiluminescent microparticle immunoasssay on the [employer] i2000.The range is based on experience at [facility] and users should be aware that target concentrations vary widely depending on concomitant therapy, time post-transplant, and desired degree of immunosuppression. Performed By: #### T ACRO ####[facility] (DEFAULT)[address] [place] [address] CBC,PLATELETSon 09-08-2023 Erythrocyte distribution width (RBC) [Ratio] 13.6 % 10.9 - 14.3 % [facility] Hematocrit (Bld) [Volume fraction] 36.1 % Low 39.6 - 48.8 % [facility] Hemoglobin (Bld) [Mass/Vol] 11.6 g/dL Low 13.4 - 16.8 g/dL [facility] Interpretation and review of laboratory results Abnormal [facility] MCH (RBC) [Entitic mass] 27.4 pg 26.1 - 33.3 pg [facility] MCHC (RBC) [Mass/Vol] 32.1 g/dL 31.9 - 36.5 g/dL [facility] MCV (RBC) [Entitic vol] 85.1 fL 79.0 - 94.5 fL [facility] Platelet mean volume (Bld) [Entitic vol] 9.5 fL 8.7 - 12.3 fL [facility] Platelets (Bld) [#/Vol] 182 10*3/uL 146 - 337 K/uL [facility] RBC (Bld) [#/Vol] 4.24 10*6/uL Low [facility] WBC (Bld) [#/Vol] 4.59 10*3/uL 3.73 - 10. 10 K/uL [facility] Hematocrit (Bld) [Volume fraction] 36.1 % Low 39.6-48.8 [facility] Comment on above: Performed By: #### H [facility] ####[facility] (DEFAULT)[address] [place] [address] Hemoglobin (Bld) [Mass/Vol] 11.6 g/dL Low 13.4-16.8 [facility] Comment on above: Performed By: #### H [facility] ####[facility] (DEFAULT)[address] [place] [address] MCV (RBC) [Entitic vol] 85.1 fL Normal 79.0-94.5 [facility] Comment on above: Performed By: #### H [facility] ####[facility] (DEFAULT)[address] [place] [address] Mean Cell Hgb 27.4 pg Normal 26.1-33.3 [facility] Comment on above: Performed By: #### H EMOGC ####[facility] (DEFAULT)[address] [place] [address] Mean Cell Hgb Conc 32.1 g/dL Normal 31.9-36.5 [facility] Comment on above: Performed By: #### H EMOGC ####[facility] (DEFAULT)[address] [place] [address] Platelet mean volume (Bld) [Entitic vol] 9.5 fL Normal 8.7-12.3 [facility] Comment on above: Performed By: #### H EMOGC ####[facility] (DEFAULT)[address] [place] [address] Platelets (Bld) [#/Vol] 182 10*3/uL Normal 146-337 [facility] Comment on above: Performed By: #### H EMOGC ####[facility] (DEFAULT)[address] [place] [address] RBC (Bld) [#/Vol] 4.24 10*6/uL Low 4.38-5.83 [facility] Comment on above: Performed By: #### H EMOGC ####[facility] (DEFAULT)[address] [place] [address] RBC Distribution 13.6 % Normal 10.9-14.3 [facility] Comment on above: Performed By: #### H EMOGC ####[facility] (DEFAULT)[address] [place] [address] WBC (Bld) [#/Vol] 4.59 10*3/uL Normal 3.73-10.10 [facility] Comment on above: Performed By: #### H EMOGC ####[facility] (DEFAULT)[address] [place] [address] CHEM 7 (LYTES,BUN,CREA,GLUC) on 09-08-2023 Anion gap [Moles/Vol] 12 mmol/L 7 - 17 mmol/L [facility] Chloride [Moles/Vol] 113 mmol/L High 98 - 10 8 mmol/L [facility] CO2 [Moles/Vol] 21 mmol/L 21 - 31 mmol/L [facility] Creatinine [Mass/Vol] 1.14 mg/dL 0.70 - 1.30 mg/dL [facility] eGFR, CKD-EPI, Male 77 - PINF [facility] Glucose [Mass/Vol] 107 mg/dL High 70 - 99 mg/dL [facility] Osmolality Calc [Osmolality] 296 [facility] Potassium [Moles/Vol] 3.9 mmol/L 3.5 - 5.0 mmol/L [facility] Sodium [Moles/Vol] 142 mmol/L 135 - 145 mmol/L [facility] Urea nitrogen [Mass/Vol] 11 mg/dL 7 - 25 mg/dL [facility] Urea nitrogen/Creatinine [Mass ratio] 10 mg/mg [facility] Anion gap [Moles/Vol] 12 mmol/L Normal 7-17 [facility] Comment on above: Performed By: #### M JO ANN BLOOM, CHM7, HFP ####[facility] (DEFAULT)[address] [place] [address] Chloride [Moles/Vol] 113 mmol/L High 98-108 [facility] Comment on above: Performed By: #### M MERLE IPB, CHM7, HFP ####[facility] (DEFAULT)[address] [place] [address] CO2 [Moles/Vol] 21 mmol/L Normal 21-31 [facility] Comment on above: Performed By: #### M MERLE IPB, CHM7, HFP ####[facility] (DEFAULT)[address] [place] [address] Creatinine [Mass/Vol] 1.14 mg/dL Normal 0.70-1.30 [facility] Comment on above: Performed By: #### JO ANN RAMÍREZ, HELENM7, HFP ####[facility] (DEFAULT)[address] [place] [address] GFR/1.73 sq M.predicted among non-blacks MDRD (S/P/Bld) [Vol rate/Area] 77 mL/min/{1.73_m2} Normal >=60 [facility] Comment on above: Result Comment: Repo rted eGFR is based on the CKD-EPI 2020 equation using creatinine, age, and sex. Performed By: #### JO ANN RAMÍREZ, CHM7, HFP ####[facility] (DEFAULT)[address] [place] [address] Glucose [Mass/Vol] 107 mg/dL High 70-99 [facility] Comment on above: Performed By: #### JO ANN RAMÍREZ, CHM7, HFP ####[facility] (DEFAULT)[address] [place] [address] Osmolality [Osmolality] 296 mosm/kg Normal 278-305 [facility] Comment on above: Performed By: #### JO ANN RAMÍREZ, CHM7, HFP ####[facility] (DEFAULT)[address] [place] [address] Potassium [Moles/Vol] 3.9 mmol/L Normal 3.5-5.0 [facility] Comment on above: Performed By: #### JO ANN RAMÍREZ, CHM7, HFP ####[facility] (DEFAULT)[address] [place] [address] Sodium [Moles/Vol] 142 mmol/L Normal 135-145 [facility] Comment on above: Performed By: #### CASTRO RAMÍREZB, CHM7, HFP ####[facility] (DEFAULT)[address] [place] [address] Urea nitrogen [Mass/Vol] 11 mg/dL Normal 7-25 [facility] Comment on above: Performed By: #### M JO ANN BLOOM, CHM7, HFP ####[facility] (DEFAULT)[address] [place] [address] Urea nitrogen/Creatinine [Mass ratio] 10 mg/mg Normal [facility] Comment on above: Performed By: #### M JO ANN BLOOM, CHM7, HFP ####[facility] (DEFAULT)[address] [place] [address] HEPATIC FUNCTION PANELon Albumin [Mass/Vol] 2.9 g/dL Low 3.5 - 5.0 g/dL [facility] ALP [Catalytic activity/Vol] 133 U/L High 32 - 126 U/L [facility] ALT [Catalytic activity/Vol] 23 U/L 10 - 52 U/L [facility] AST [Catalytic activity/Vol] 23 U/L 10 - 39 U/L [facility] Bilirubin [Mass/Vol] 0.8 mg/dL [facility] 1.[facility] mg/dL [facility] Bilirubin.direct [Mass/Vol] 0.2 mg/dL [facility] - 0.3 mg/dL [facility] Protein [Mass/Vol] 5.9 g/dL Low 6.4 - 8.3 g/dL [facility] Albumin [Mass/Vol] 2.9 g/dL Low 3.5-5.0 [facility] Comment on above: Performed By: #### M JO ANN BLOOM, CHM7, HFP ####[facility] (DEFAULT)[address] [place] [address] ALP [Catalytic activity/Vol] 133 U/L High 32-126 [facility] Comment on above: Performed By: #### M JO ANN BLOOM, CHM7, HFP ####[facility] (DEFAULT)[address] [place] [address] ALT [Catalytic activity/Vol] 23 U/L Normal 10-52 [facility] Comment on above: Performed By: #### M MERLE, IPB, CHM7, HFP ####[facility] (DEFAULT)[address] [place] [address] AST [Catalytic activity/Vol] 23 U/L Normal 10-39 [facility] Comment on above: Performed By: #### M GO, IPB, CHM7, HFP ####[facility] (DEFAULT)[address] [facility] [place] [address] Bilirubin [Mass/Vol] 0.8 mg/dL Normal <1.5 [facility] Comment on above: Performed By: #### M GO, IPB, CHM7, HFP ####[facility] (DEFAULT)[address] [place] [address] Bilirubin.indirect [Mass/Vol] 0.2 mg/dL Normal <0.3 [facility] Comment on above: Performed By: #### M GO, IPB, CHM7, HFP ####[facility] (DEFAULT)[address] [facility] [place] [address] Protein [Mass/Vol] 5.9 g/dL Low 6.4-8.3 [facility] Comment on above: Performed By: #### M GO, IPB, CHM7, HFP ####[facility] (DEFAULT)[address] [facility] [place] [address] MAGNESIUMon 09-08-2023 Interpretation and review of laboratory results Normal [facility] Magnesium [Mass/Vol] 1.8 mg/dL 1.6 - 2 .6 mg/dL [facility] Magnesium [Mass/Vol] 1.8 mg/dL Normal 1.6-2.6 [facility] Comment on above: Performed By: #### M GO, IPB, CHM7, HFP ####[facility] (DEFAULT)[address] [facility] [place] [address] No Panel Informationon 09-08 Interpretation and review of laboratory results Abnormal [facility] PHOSPHATE, INORGANICon 09-08 Interpretation and review of laboratory results Normal [facility] Phosphate [Mass/Vol] 4.1 mg/dL 2.2 - 4 .6 mg/dL [facility] Phosphorous 4.1 mg/dL Normal 2.2-4.6 [facility] Comment on above: Performed By: #### M GO, IPB, CHM7, HFP ####[facility] (DEFAULT)[address] [place] [address] TACROLIMUS LEVEL, TROUGH (NC E DRUG LEVEL)on 09-08-2023 Interpretation and review of laboratory results Normal [facility] Tacrolimus (Bld) [Mass/Vol] 8.5 ng/mL [facility] Tacrolimus, Trough 8.5 ng/mL Normal Bone Susana ow Transplant: 4.0-12.0, Therapeutic: 5.0-15.0 [facility] Comment on above: Order Comment: Pleas e draw at specified interval PRIOR to dose. Do not hold dose to wait for level. Specimens batched twice per day, (M-F) and once per day weekendsMethod performed is a chemiluminescent microparticle immunoasssay on the [employer] i2000.The range is based on experience at [facility] and users should be aware that target concentrations vary widely depending on concomitant therapy, time post-transplant, and desired degree of immunosuppression. Performed By: #### T ACRO ####[facility] (DEFAULT)[address] [place] [address] CBC,PLATELETSon 09-07-2023 Erythrocyte distribution width (RBC) [Ratio] 13.5 % 10.9 - 14.3 % [facility] Hematocrit (Bld) [Volume fraction] 37.1 % Low 39.6 - 48.8 % [facility] Hemoglobin (Bld) [Mass/Vol] 11.9 g/dL Low 13.4 - 16.8 g/dL [facility] Interpretation and review of laboratory results Abnormal [facility] MCH (RBC) [Entitic mass] 27.7 pg 26.1 - 33.3 pg [facility] MCHC (RBC) [Mass/Vol] 32.1 g/dL 31.9 - 36.5 g/dL [facility] MCV (RBC) [Entitic vol] 86.5 fL 79.0 - 94.5 fL [facility] Platelet mean volume (Bld) [Entitic vol] 9.6 fL 8.7 - 12.3 fL [facility] Platelets (Bld) [#/Vol] 176 10*3/uL 146 - 337 K/uL [facility] RBC (Bld) [#/Vol] 4.29 10*6/uL Low [facility] WBC (Bld) [#/Vol] 4.10 10*3/uL 3.73 - 10. 10 K/uL [facility] Hematocrit (Bld) [Volume fraction] 37.1 % Low 39.6-48.8 [facility] Comment on above: Performed By: #### [facility] ####[facility] (DEFAULT)[address] [place] [address] Hemoglobin (Bld) [Mass/Vol] 11.9 g/dL Low 13.4-16.8 [facility] Comment on above: Performed By: #### H EMO ####[facility] (DEFAULT)[address] [place] [address] MCV (RBC) [Entitic vol] 86.5 fL Normal 79.0-94.5 [facility] Comment on above: Performed By: #### H EMO ####[facility] (DEFAULT)[address] [place] [address] Mean Cell Hgb 27.7 pg Normal 26.1-33.3 [facility] Comment on above: Performed By: #### H EMO ####[facility] (DEFAULT)[address] [place] [address] Mean Cell Hgb Conc 32.1 g/dL Normal 31.9-36.5 [facility] Comment on above: Performed By: #### H EMOGC ####[facility] (DEFAULT)[address] [place] [address] Platelet mean volume (Bld) [Entitic vol] 9.6 fL Normal 8.7-12.3 [facility] Comment on above: Performed By: #### H EMO ####[facility] (DEFAULT)[address] [facility] [place] [address] Platelets (Bld) [#/Vol] 176 10*3/uL Normal 146-337 [facility] Comment on above: Performed By: #### H EMO ####[facility] (DEFAULT)[address] [facility] [place] [address] RBC (Bld) [#/Vol] 4.29 10*6/uL Low 4.38-5.83 [facility] Comment on above: Performed By: #### H EMO ####[facility] (DEFAULT)[address] [place] [address] RBC Distribution 13.5 % Normal 10.9-14.3 [facility] Comment on above: Performed By: #### H EMOGC ####[facility] (DEFAULT)[address] [facility] [place] [address] WBC (Bld) [#/Vol] 4.10 10*3/uL Normal 3.73-10.10 [facility] Comment on above: Performed By: #### H EMOGC ####[facility] (DEFAULT)[address] [place] [address] CHEM 7 (LYTES,BUN,CREA,GLUC) on 09-07-2023 Anion gap [Moles/Vol] 13 mmol/L 7 - 17 mmol/L [facility] Chloride [Moles/Vol] 113 mmol/L High 98 - 10 8 mmol/L [facility] CO2 [Moles/Vol] 19 mmol/L Low 21 - 31 mmol/L [facility] Creatinine [Mass/Vol] 1.22 mg/dL 0.70 - 1.30 mg/dL [facility] eGFR, CKD-EPI, Male 71 - PINF [facility] Glucose [Mass/Vol] 107 mg/dL High 70 - 99 mg/dL [facility] Osmolality Calc [Osmolality] [facility] Potassium [Moles/Vol] 3.9 mmol/L 3.5 - 5.0 mmol/L [facility] Sodium [Moles/Vol] 141 mmol/L 135 - 145 mmol/L [facility] Urea nitrogen [Mass/Vol] 13 mg/dL 7 - 25 mg/dL [facility] Urea nitrogen/Creatinine [Mass ratio] 11 mg/mg [facility] Anion gap [Moles/Vol] 13 mmol/L Normal 7-17 [facility] Comment on above: Performed By: #### C HM7, IPB, MGO, HFP ####[facility] (DEFAULT)[address] [place] [address] Chloride [Moles/Vol] 113 mmol/L High 98-108 [facility] Comment on above: Performed By: #### C HM7, IPB, MGO, HFP ####[facility] (DEFAULT)[address] [facility] [place] [address] CO2 [Moles/Vol] 19 mmol/L Low 21-31 [facility] Comment on above: Performed By: #### C HM7, IPB, MGO, HFP ####[facility] (DEFAULT)[address] [place] [address] Creatinine [Mass/Vol] 1.22 mg/dL Normal 0.70-1.30 [facility] Comment on above: Performed By: #### C HM7, IPB, MGO, HFP ####[facility] (DEFAULT)[address] [facility] [place] [address] GFR/1.73 sq M.predicted among non-blacks MDRD (S/P/Bld) [Vol rate/Area] 71 mL/min/{1.73_m2} Normal >=60 [facility] Comment on above: Result Comment: Repo rted eGFR is based on the CKD-EPI 2020 equation using creatinine, age, and sex. Performed By: #### C HM7, IPB, MGO, HFP ####U [facility] (DEFAULT)[address] [place] [address] Glucose [Mass/Vol] 107 mg/dL High 70-99 [facility] Comment on above: Performed By: #### C HM7, IPB, MGO, HFP ####[facility] (DEFAULT)[address] [place] [address] Osmolality [Osmolality] 295 mosm/kg Normal 278-305 [facility] Comment on above: Performed By: #### C HM7, IPB, MGO, HFP ####[facility] (DEFAULT)[address] [place] [address] Potassium [Moles/Vol] 3.9 mmol/L Normal 3.5-5.0 [facility] Comment on above: Performed By: #### C HM7, IPB, MGO, HFP ####[facility] (DEFAULT)[address] [place] [address] Sodium [Moles/Vol] 141 mmol/L Normal 135-145 [facility] Comment on above: Performed By: #### C HM7, IPB, MGO, HFP ####[facility] (DEFAULT)[address] [facility] [place] [address] Urea nitrogen [Mass/Vol] 13 mg/dL Normal 7-25 [facility] Comment on above: Performed By: #### C HM7, IPB, MGO, HFP ####[facility] (DEFAULT)[address] [place] [address], [place] [address] Urea nitrogen/Creatinine [Mass ratio] 11 mg/mg Normal [facility] Comment on above: Performed By: #### C HM7, IPB, MGO, HFP ####[facility] (DEFAULT)[address] [place] [address] HEPATIC FUNCTION PANELon Albumin [Mass/Vol] 2.9 g/dL Low 3.5 - 5.0 g/dL [facility] ALP [Catalytic activity/Vol] 111 U/L 32 - 126 U/L [facility] ALT [Catalytic activity/Vol] 18 U/L 10 - 52 U/L [facility] AST [Catalytic activity/Vol] 23 U/L 10 - 39 U/L [facility] Bilirubin [Mass/Vol] 0.8 mg/dL [facility] - 1.5 mg/dL [facility] Bilirubin.direct [Mass/Vol] 0.3 mg/dL High NINF - 0.3 mg/dL [facility] Protein [Mass/Vol] 6.0 g/dL Low 6.4 - 8.3 g/dL [facility] Albumin [Mass/Vol] 2.9 g/dL Low 3.5-5.0 [facility] Comment on above: Performed By: #### C HM7, IPB, MGO, HFP ####U [facility] (DEFAULT)[address] [place] [address] ALP [Catalytic activity/Vol] 111 U/L Normal 32-126 [facility] Comment on above: Performed By: #### C HM7, IPB, MGO, HFP ####U [facility] (DEFAULT)[address] [place] [address] ALT [Catalytic activity/Vol] 18 U/L Normal 10-52 [facility] Comment on above: Performed By: #### C HM7, IPB, MGO, HFP ####U [facility] (DEFAULT)[address] [place] [address] AST [Catalytic activity/Vol] 23 U/L Normal 10-39 [facility] Comment on above: Performed By: #### C HM7, IPB, MGO, HFP ####[facility] (DEFAULT)[address] [facility] [place] [address] Bilirubin [Mass/Vol] 0.8 mg/dL Normal <1.5 [facility] Comment on above: Performed By: #### C HM7, IPB, MGO, HFP ####[facility] (DEFAULT)[address] [place] [address] Bilirubin.indirect [Mass/Vol] 0.3 mg/dL High <0.3 [facility] Comment on above: Performed By: #### C HM7, IPB, MGO, HFP ####[facility] (DEFAULT)[address] [facility] [place] [address] Protein [Mass/Vol] 6.0 g/dL Low 6.4-8.3 [facility] Comment on above: Performed By: #### C HM7, IPB, MGO, HFP ####[facility] (DEFAULT)[address] [place] [address] MAGNESIUMon 09-07-2023 Interpretation and review of laboratory results Normal [facility] Magnesium [Mass/Vol] 1.7 mg/dL 1.6 - 2 .6 mg/dL [facility] Magnesium [Mass/Vol] 1.7 mg/dL Normal 1.6-2.6 [facility] Comment on above: Performed By: #### C HM7, IPB, MGO, HFP ####[facility] (DEFAULT)[address] [place] [address] No Panel Informationon 09-07 Interpretation and review of laboratory results Abnormal [facility] PHOSPHATE, INORGANICon 09-07 Interpretation and review of laboratory results Normal [facility] Phosphate [Mass/Vol] 4.4 mg/dL 2.2 - 4 .6 mg/dL [facility] Phosphorous 4.4 mg/dL Normal 2.2-4.6 [facility] Comment on above: Performed By: #### C HM7, IPB, MGO, HFP ####[facility] (DEFAULT)[address] [place] [address] TACROLIMUS LEVEL, TROUGH (NC E DRUG LEVEL)Ordered By: Elizabeth Maldonado on 09-07-2023 Interpretation and review of laboratory results Normal [facility] Tacrolimus (Bld) [Mass/Vol] 7.8 ng/mL [facility] TACROLIMUS LEVEL, TROUGH (NC E DRUG LEVEL)on 09-07-2023 Tacrolimus, Trough 7.8 ng/mL Normal Bone Susana ow Transplant: 4.0-12.0, Therapeutic: 5.0-15.0 [facility] Comment on above: Order Comment: Pleas e draw at specified interval PRIOR to dose. Do not hold dose to wait for level. Specimens batched twice per day, (M-F) and once per day weekendsMethod performed is a chemiluminescent microparticle immunoasssay on the [employer] i2000.The range is based on experience at [facility] and users should be aware that target concentrations vary widely depending on concomitant therapy, time post-transplant, and desired degree of immunosuppression. Performed By: #### T ACRO ####[facility] (DEFAULT)[address] [place] [address] CBC,PLATELETSon 09-06-2023 Erythrocyte distribution width (RBC) [Ratio] 13.4 % 10.9 - 14.3 % [facility] Hematocrit (Bld) [Volume fraction] 38.4 % Low 39.6 - 48.8 % [facility] Hemoglobin (Bld) [Mass/Vol] 11.9 g/dL Low 13.4 - 16.8 g/dL [facility] Interpretation and review of laboratory results Abnormal [facility] MCH (RBC) [Entitic mass] 26.6 pg 26.1 - 33.3 pg [facility] MCHC (RBC) [Mass/Vol] 31.0 g/dL Low 31.9 - 36.5 g/dL [facility] MCV (RBC) [Entitic vol] 85.9 fL 79.0 - 94.5 fL [facility] Platelet mean volume (Bld) [Entitic vol] 9.7 fL 8.7 - 12.3 fL [facility] Platelets (Bld) [#/Vol] 181 10*3/uL 146 - 337 K/uL [facility] RBC (Bld) [#/Vol] 4.47 10*6/uL [facility] WBC (Bld) [#/Vol] 4.41 10*3/uL 3.73 - 10. 10 K/uL [facility] Hematocrit (Bld) [Volume fraction] 38.4 % Low 39.6-48.8 [facility] Comment on above: Performed By: #### H [facility] ####[facility] (DEFAULT)[address] [place] [address] Hemoglobin (Bld) [Mass/Vol] 11.9 g/dL Low 13.4-16.8 [facility] Comment on above: Performed By: #### H EMO ####[facility] (DEFAULT)[address] [facility] [place] [address] MCV (RBC) [Entitic vol] 85.9 fL Normal 79.0-94.5 [facility] Comment on above: Performed By: #### H EMO ####[facility] (DEFAULT)[address] [place] [address] Mean Cell Hgb 26.6 pg Normal 26.1-33.3 [facility] Comment on above: Performed By: #### H EMO ####[facility] (DEFAULT)[address] [facility] [place] [address] Mean Cell Hgb Conc 31.0 g/dL Low 31.9-36.5 [facility] Comment on above: Performed By: #### H EMO ####[facility] (DEFAULT)[address] [facility] [place] [address] Platelet mean volume (Bld) [Entitic vol] 9.7 fL Normal 8.7-12.3 [facility] Comment on above: Performed By: #### H EMOGC ####[facility] (DEFAULT)[address] [facility] [place] [address] Platelets (Bld) [#/Vol] 181 10*3/uL Normal 146-337 [facility] Comment on above: Performed By: #### H EMO ####[facility] (DEFAULT)[address] [facility] [place] [address] RBC (Bld) [#/Vol] 4.47 10*6/uL Normal 4.38-5.83 [facility] Comment on above: Performed By: #### H EMO ####[facility] (DEFAULT)[address] [facility] [place] [address] RBC Distribution 13.4 % Normal 10.9-14.3 [facility] Comment on above: Performed By: #### H EMOGC ####[facility] (DEFAULT)[address] [facility] [place] [address] WBC (Bld) [#/Vol] 4.41 10*3/uL Normal 3.73-10.10 [facility] Comment on above: Performed By: #### H EMOGC ####[facility] (DEFAULT)[address] [place] [address], [place] [address] CHEM 7 (LYTES,BUN,CREA,GLUC) on 09-06-2023 Anion gap [Moles/Vol] 14 mmol/L 7 - 17 mmol/L [facility] Chloride [Moles/Vol] 109 mmol/L High 98 - 10 8 mmol/L [facility] CO2 [Moles/Vol] 19 mmol/L Low 21 - 31 mmol/L [facility] Creatinine [Mass/Vol] 1.26 mg/dL 0.70 - 1.30 mg/dL [facility] eGFR, CKD-EPI, Male 69 - PINF [facility] Glucose [Mass/Vol] 114 mg/dL High 70 - 99 mg/dL [facility] Osmolality Calc [Osmolality] 291 [facility] Potassium [Moles/Vol] 4.1 mmol/L 3.5 - 5.0 mmol/L [facility] Sodium [Moles/Vol] 138 mmol/L 135 - 145 mmol/L [facility] Urea nitrogen [Mass/Vol] 16 mg/dL 7 - 25 mg/dL [facility] Urea nitrogen/Creatinine [Mass ratio] 13 mg/mg [facility] Anion gap [Moles/Vol] 14 mmol/L Normal 7-17 [facility] Comment on above: Performed By: #### NATHANIEL RAMÍREZ, HFP ####[facility] (DEFAULT)[address] [place] [address] Chloride [Moles/Vol] 109 mmol/L High 98-108 [facility] Comment on above: Performed By: #### NATHANIEL RAMÍREZ, HFP ####[facility] (DEFAULT)[address] [place] [address] CO2 [Moles/Vol] 19 mmol/L Low 21-31 [facility] Comment on above: Performed By: #### NATHANIEL RAMÍREZ, HFP ####[facility] (DEFAULT)[address] [place] [address] Creatinine [Mass/Vol] 1.26 mg/dL Normal 0.70-1.30 [facility] Comment on above: Performed By: #### NATHANIEL RAMÍREZ, HFP ####[facility] (DEFAULT)[address] [place] [address] GFR/1.73 sq M.predicted among non-blacks MDRD (S/P/Bld) [Vol rate/Area] 69 mL/min/{1.73_m2} Normal >=60 [facility] Comment on above: Result Comment: Repo rted eGFR is based on the CKD-EPI 2020 equation using creatinine, age, and sex. Performed By: #### NATHANIEL RAMÍREZ, HFP ####U [facility] (DEFAULT)[address] [place] [address] Glucose [Mass/Vol] 114 mg/dL High 70-99 [facility] Comment on above: Performed By: #### NATHANIEL RAMÍREZ, HFP ####[facility] (DEFAULT)[address] [place] [address] Osmolality [Osmolality] 291 mosm/kg Normal 278-305 [facility] Comment on above: Performed By: #### NATHANIEL RAMÍREZ, HFP ####[facility] (DEFAULT)[address] [place] [address] Potassium [Moles/Vol] 4.1 mmol/L Normal 3.5-5.0 [facility] Comment on above: Performed By: #### NATHANIEL RAMÍREZ, HFP ####[facility] (DEFAULT)[address] [place] [address] Sodium [Moles/Vol] 138 mmol/L Normal 135-145 [facility] Comment on above: Performed By: #### NATHANIEL RAMÍREZ, HFP ####[facility] (DEFAULT)[address] [place] [address] Urea nitrogen [Mass/Vol] 16 mg/dL Normal 7-25 [facility] Comment on above: Performed By: #### NATHANIEL RAMÍREZ, HFP ####[facility] (DEFAULT)[address] [place] [address] Urea nitrogen/Creatinine [Mass ratio] 13 mg/mg Normal [facility] Comment on above: Performed By: #### NATHANIEL RAMÍREZ, HFP ####[facility] (DEFAULT)[address] [place] [address] HEPATIC FUNCTION PANELon Albumin [Mass/Vol] 3.0 g/dL Low 3.5 - 5.0 g/dL [facility] ALP [Catalytic activity/Vol] 115 U/L 32 - 126 U/L [facility] ALT [Catalytic activity/Vol] 25 U/L 10 - 52 U/L [facility] AST [Catalytic activity/Vol] 31 U/L 10 - 39 U/L [facility] Bilirubin [Mass/Vol] 1.0 mg/dL NINF - 1.5 mg/dL [facility] Bilirubin.direct [Mass/Vol] 0.3 mg/dL High NINF - 0.3 mg/dL [facility] Protein [Mass/Vol] 6.3 g/dL Low 6.4 - 8.3 g/dL [facility] Albumin [Mass/Vol] 3.0 g/dL Low 3.5-5.0 [facility] Comment on above: Performed By: #### M MERLE CHM7, HFP ####[facility] (DEFAULT)[address] [facility] [place] [address] ALP [Catalytic activity/Vol] 115 U/L Normal 32-126 [facility] Comment on above: Performed By: #### M MERLE CHM7, HFP ####[facility] (DEFAULT)[address] [place] [address] ALT [Catalytic activity/Vol] 25 U/L Normal 10-52 [facility] Comment on above: Performed By: #### M MERLE CHM7, HFP ####[facility] (DEFAULT)[address] [place] [address] AST [Catalytic activity/Vol] 31 U/L Normal 10-39 [facility] Comment on above: Performed By: #### M MERLE, CHM7, HFP ####[facility] (DEFAULT)[address] [place] [address] Bilirubin [Mass/Vol] 1.0 mg/dL Normal <1.5 [facility] Comment on above: Performed By: #### NATHANIEL RAMÍREZ, HFP ####[facility] (DEFAULT)[address] [facility] [place] [address] Bilirubin.indirect [Mass/Vol] 0.3 mg/dL High <0.3 [facility] Comment on above: Performed By: #### NATHANIEL RAMÍREZ, HFP ####[facility] (DEFAULT)[address] [facility] [place] [address] Protein [Mass/Vol] 6.3 g/dL Low 6.4-8.3 [facility] Comment on above: Performed By: #### NATHANIEL RAMÍREZ, HFP ####[facility] (DEFAULT)[address] [facility] [place] [address] MAGNESIUMon 09-06-2023 Interpretation and review of laboratory results Normal [facility] Magnesium [Mass/Vol] 2.0 mg/dL 1.6 - 2 .6 mg/dL [facility] Magnesium [Mass/Vol] 2.0 mg/dL Normal 1.6-2.6 [facility] Comment on above: Performed By: #### NATHANIEL RAMÍREZ, HFP ####[facility] (DEFAULT)[address] [facility] [place] [address] No Panel Informationon 09-06 Interpretation and review of laboratory results Abnormal [facility] TACROLIMUS LEVEL, TROUGH (NC E DRUG LEVEL)on 09-06-2023 Interpretation and review of laboratory results Normal [facility] Tacrolimus (Bld) [Mass/Vol] 6.7 ng/mL [facility] Tacrolimus, Trough 6.7 ng/mL Normal Bone Susana ow Transplant: 4.0-12.0, Therapeutic: 5.0-15.0 [facility] Comment on above: Order Comment: Pleas e draw at specified interval PRIOR to dose. Do not hold dose to wait for level. Specimens batched twice per day, (M-F) and once per day weekendsMethod performed is a chemiluminescent microparticle immunoasssay on the [employer] i2000.The range is based on experience at [facility] and users should be aware that target concentrations vary widely depending on concomitant therapy, time post-transplant, and desired degree of immunosuppression. Performed By: #### T ACRO ####[facility] (DEFAULT)[address] [place] [address] CBC,PLATELETSon 09-05-2023 Erythrocyte distribution width (RBC) [Ratio] 13.5 % 10.9 - 14.3 % [facility] Hematocrit (Bld) [Volume fraction] 35.6 % Low 39.6 - 48.8 % [facility] Hemoglobin (Bld) [Mass/Vol] 11.4 g/dL Low 13.4 - 16.8 g/dL [facility] Interpretation and review of laboratory results Abnormal [facility] MCH (RBC) [Entitic mass] 27.5 pg 26.1 - 33.3 pg [facility] MCHC (RBC) [Mass/Vol] 32.0 g/dL 31.9 - 36.5 g/dL [facility] MCV (RBC) [Entitic vol] 86.0 fL 79.0 - 94.5 fL [facility] Platelet mean volume (Bld) [Entitic vol] 10.0 fL 8.7 - 12.3 fL [facility] Platelets (Bld) [#/Vol] 170 10*3/uL 146 - 337 K/uL [facility] RBC (Bld) [#/Vol] 4.14 10*6/uL Low [facility] WBC (Bld) [#/Vol] 4.24 10*3/uL 3.73 - 10. 10 K/uL [facility] Hematocrit (Bld) [Volume fraction] 35.6 % Low 39.6-48.8 [facility] Comment on above: Performed By: #### [facility] ####[facility] (DEFAULT)[address] [place] [address] Hemoglobin (Bld) [Mass/Vol] 11.4 g/dL Low 13.4-16.8 [facility] Comment on above: Performed By: #### H EMOGC ####U [facility] (DEFAULT)[address] [place] [address] MCV (RBC) [Entitic vol] 86.0 fL Normal 79.0-94.5 [facility] Comment on above: Performed By: #### H EMOGC ####[facility] (DEFAULT)[address] [place] [address] Mean Cell Hgb 27.5 pg Normal 26.1-33.3 [facility] Comment on above: Performed By: #### H EMOGC ####[facility] (DEFAULT)[address] [place] [address] Mean Cell Hgb Conc 32.0 g/dL Normal 31.9-36.5 [facility] Comment on above: Performed By: #### H EMOGC ####[facility] (DEFAULT)[address] [place] [address] Platelet mean volume (Bld) [Entitic vol] 10.0 fL Normal 8.7-12.3 [facility] Comment on above: Performed By: #### H EMOGC ####[facility] (DEFAULT)[address] [place] [address] Platelets (Bld) [#/Vol] 170 10*3/uL Normal 146-337 [facility] Comment on above: Performed By: #### H EMOGC ####[facility] (DEFAULT)[address] [place] [address] RBC (Bld) [#/Vol] 4.14 10*6/uL Low 4.38-5.83 [facility] Comment on above: Performed By: #### H EMOGC ####[facility] (DEFAULT)[address] [place] [address] RBC Distribution 13.5 % Normal 10.9-14.3 [facility] Comment on above: Performed By: #### [facility] ####[facility] (DEFAULT)[address] [place] [address] WBC (Bld) [#/Vol] 4.24 10*3/uL Normal 3.73-10.10 [facility] Comment on above: Performed By: #### [facility] ####[facility] (DEFAULT)[address] [place] [address] CHEM 7 (LYTES,BUN,CREA,GLUC) on 09-05-2023 Anion gap [Moles/Vol] 12 mmol/L 7 - 17 mmol/L [facility] Chloride [Moles/Vol] 107 mmol/L 98 - 10 8 mmol/L [facility] CO2 [Moles/Vol] 20 mmol/L Low 21 - 31 mmol/L [facility] Creatinine [Mass/Vol] 1.43 mg/dL High 0.70 - 1.30 mg/dL [facility] eGFR, CKD-EPI, Male 60 Low - PINF [facility] Glucose [Mass/Vol] 111 mg/dL High 70 - 99 mg/dL [facility] Osmolality Calc [Osmolality] 286 [facility] Potassium [Moles/Vol] 4.2 mmol/L 3.5 - 5.0 mmol/L [facility] Sodium [Moles/Vol] 135 mmol/L 135 - 145 mmol/L [facility] Urea nitrogen [Mass/Vol] 18 mg/dL 7 - 25 mg/dL [facility] Urea nitrogen/Creatinine [Mass ratio] 13 mg/mg [facility] Anion gap [Moles/Vol] 12 mmol/L Normal 7-17 [facility] Comment on above: Performed By: #### H FP, CHM7, MGO ####[facility] (DEFAULT)[address] [place] [address] Chloride [Moles/Vol] 107 mmol/L Normal 98-108 [facility] Comment on above: Performed By: #### H NATHANIEL MONCADA, MGO ####[facility] (DEFAULT)[address] [place] [address] CO2 [Moles/Vol] 20 mmol/L Low 21-31 [facility] Comment on above: Performed By: #### H NATHANIEL MONCADA, MGO ####[facility] (DEFAULT)[address] [place] [address] Creatinine [Mass/Vol] 1.43 mg/dL High 0.70-1.30 [facility] Comment on above: Performed By: #### H NATHANIEL MONCADA, MGO ####[facility] (DEFAULT)[address] [facility] [place] [address] GFR/1.73 sq M.predicted among non-blacks MDRD (S/P/Bld) [Vol rate/Area] 59 mL/min/{1.73_m2} Low >=60 [facility] Comment on above: Result Comment: Repo rted eGFR is based on the CKD-EPI 2020 equation using creatinine, age, and sex. Performed By: #### H NATHANIEL MONCADA, MGO ####[facility] (DEFAULT)[address] [facility] [place] [address] Glucose [Mass/Vol] 111 mg/dL High 70-99 [facility] Comment on above: Performed By: #### H NATHANIEL MONCADA, MGO ####[facility] (DEFAULT)[address] [place] [address] Osmolality [Osmolality] 286 mosm/kg Normal 278-305 [facility] Comment on above: Performed By: #### H NATHANIEL MONCADA, MGO ####[facility] (DEFAULT)[address] [place] [address] Potassium [Moles/Vol] 4.2 mmol/L Normal 3.5-5.0 [facility] Comment on above: Performed By: #### H ANTWAN, CHM7, MGO ####[facility] (DEFAULT)[address] [place] [address] Sodium [Moles/Vol] 135 mmol/L Normal 135-145 [facility] Comment on above: Performed By: #### H ANTWAN, CHM7, MGO ####[facility] (DEFAULT)[address] [facility] [place] [address] Urea nitrogen [Mass/Vol] 18 mg/dL Normal 7-25 [facility] Comment on above: Performed By: #### H ANTWAN, CHM7, MGO ####[facility] (DEFAULT)[address] [facility] [place] [address] Urea nitrogen/Creatinine [Mass ratio] 13 mg/mg Normal [facility] Comment on above: Performed By: #### H ANTWAN, CHM7, MGO ####[facility] (DEFAULT)[address] [facility] [place] [address] CONTINUOUS CARDIAC MONITORIN G STRIPon 09-05-2023 [facility] HEPATIC FUNCTION PANELon Albumin [Mass/Vol] 2.8 g/dL Low 3.5 - 5.0 g/dL [facility] ALP [Catalytic activity/Vol] 103 U/L 32 - 126 U/L [facility] ALT [Catalytic activity/Vol] 26 U/L 10 - 52 U/L [facility] AST [Catalytic activity/Vol] 38 U/L 10 - 39 U/L [facility] Bilirubin [Mass/Vol] 0.9 mg/dL [facility] mg/dL [facility] Bilirubin.direct [Mass/Vol] 0.1 mg/dL NINF - 0.3 mg/dL [facility] Protein [Mass/Vol] 6.1 g/dL Low 6.4 - 8.3 g/dL [facility] Albumin [Mass/Vol] 2.8 g/dL Low 3.5-5.0 [facility] Comment on above: Performed By: #### H FP, CHM7, MGO ####[facility] (DEFAULT)[address] [place] [address] ALP [Catalytic activity/Vol] 103 U/L Normal 32-126 [facility] Comment on above: Performed By: #### H FP, CHM7, MGO ####[facility] (DEFAULT)[address] [place] [address] ALT [Catalytic activity/Vol] 26 U/L Normal 10-52 [facility] Comment on above: Performed By: #### H FP, CHM7, MGO ####[facility] (DEFAULT)[address] [place] [address] AST [Catalytic activity/Vol] 38 U/L Normal 10-39 [facility] Comment on above: Performed By: #### H FP, CHM7, MGO ####[facility] (DEFAULT)[address] [place] [address] Bilirubin [Mass/Vol] 0.9 mg/dL Normal <1.5 [facility] Comment on above: Performed By: #### H FP, CHM7, MGO ####[facility] (DEFAULT)[address] [place] [address] Bilirubin.indirect [Mass/Vol] 0.1 mg/dL Normal <0.3 [facility] Comment on above: Performed By: #### H FP, CHM7, MGO ####[facility] (DEFAULT)[address] [place] [address] Protein [Mass/Vol] 6.1 g/dL Low 6.4-8.3 [facility] Comment on above: Performed By: #### H FP, CHM7, MGO ####[facility] (DEFAULT)[address] [place] [address] HISTOPLASMA ANTIGEN, FLUIDon 09-05-2023 FH SOURCE BAL RML [facility] Histo FLD interpretation Negative [facility] Histoplasma Antigen, FLUID Not detected ng/mL [facility] HISTOPLASMA CAPSULATUM/BLAST OMYCES SPECIES,PCR FLUIDon 09-05-2023 HISTO/BLASTO RESULT Negative Not Applicable [facility] Specimen source Nom (Unsp spec) BAL RML [facility] IMMUNOPHENOTYPING, TISSUE/FL UIDon 09-05-2023 BKR DX CODE Use Ordering [facility] Flow Interpretation See Comment [facility] Flow Interpreted by: Yossi Perla MD, PhD [facility] MAGNESIUMon 09-05-2023 Interpretation and review of laboratory results Normal [facility] Magnesium [Mass/Vol] 1.7 mg/dL 1.6 - 2 .6 mg/dL [facility] Magnesium [Mass/Vol] 1.7 mg/dL Normal 1.6-2.6 [facility] Comment on above: Performed By: #### H , M7, MGO ####[facility] (DEFAULT)[address] [place] [address] No Panel Informationon 09-05 Interpretation and review of laboratory results Abnormal [facility] TACROLIMUS LEVEL, TROUGH (NC E DRUG LEVEL)Ordered By: Raymundo Mehta on 09-05-2023 Interpretation and review of laboratory results Normal [facility] Tacrolimus (Bld) [Mass/Vol] 5.3 ng/mL [facility] TACROLIMUS LEVEL, TROUGH (NC E DRUG LEVEL)on 09-05-2023 Tacrolimus, Trough 5.3 ng/mL Normal Bone Susana ow Transplant: 4.0-12.0, Therapeutic: 5.0-15.0 [facility] Comment on above: Order Comment: Pleas e draw at specified interval PRIOR to dose. Do not hold dose to wait for level. Specimens batched twice per day, (M-F) and once per day weekendsMethod performed is a chemiluminescent microparticle immunoasssay on the [employer] i2000.The range is based on experience at [facility] and users should be aware that target concentrations vary widely depending on concomitant therapy, time post-transplant, and desired degree of immunosuppression. Performed By: #### T ACRO ####U [facility] (DEFAULT)[address] [place] [address] ARTERIAL BLOOD GAS (FULL GOSS EL)on 09-04-2023 Base excess Calc (Bld) [Moles/Vol] -1.2000 mmol/L -3.0 - 3.0 mmol/L [facility] Calcium.ionized (Bld) [Mass/Vol] 4.79 mg/dL 4.60 - 5.30 mg/dL [facility] Carboxyhemoglobin (Bld) [Mass fraction] 0.7 % NINF - 1.5 % [facility] CO2 (Bld) [Partial pressure] 30 mm[Hg] Low [facility] Glucose [Mass/Vol] 159 mg/dL High 70 - 99 mg/dL [facility] HCO3 (Bld) [Moles/Vol] 22 mmol/L 22 - 28 mmol/L [facility] Hematocrit (Bld) [Volume fraction] 38.0 % Low 40.2 - 50.4 % [facility] Hemoglobin (Bld) [Mass/Vol] 12.6 g/dL Low 13.4 - 16.8 g/dL [facility] Interpretation and review of laboratory results Abnormal [facility] Lactate [Moles/Vol] 2.0 mmol/L High 0.5 - 1. 6 mmol/L [facility] Methemoglobin (Bld) [Mass fraction] 0.0 % NINF - 1.5 % [facility] Oxygen (Bld) [Partial pressure] 62 mm[Hg] Low [facility] Oxygen saturation in Blood 92 % Low 94 - 98 % [facility] Oxyhemoglobin 91 % Low 94 - 98 % [facility] pH (Bld) 7.48 [pH] High 7.35 - 7.45 [facility] Potassium [Moles/Vol] 4.2 mmol/L 3.5 - 5.0 mmol/L [facility] Sodium [Moles/Vol] 130 mmol/L Low 135 - 145 mmol/L [facility] Specimen source Nom (Unsp spec) Arterial [facility] Base Excess -1.2 mmol/L Normal -3.0-3.0 [facility] Comment on above: Performed By: #### G YASMINE ####[facility] (DEFAULT)[address] [place] [address], [place] [address] Carboxyhemoglobin 0.7 % Normal <=1.5 [facility] Comment on above: Performed By: #### Vale UNDERWOOD ####[facility] (DEFAULT)[address] [place] [address], [place] [address] Glucose [Mass/Vol] 159 mg/dL High 70-99 [facility] Comment on above: Performed By: #### Vale UNDERWOOD ####[facility] (DEFAULT)[address] [place] [address], [place] [address] HCO3 (Bld) [Moles/Vol] 22 mmol/L Normal 22-28 [facility] Comment on above: Performed By: #### G YASMINE ####[facility] (DEFAULT)[address] [place] [address], [place] [address] Hematocrit (Bld) [Volume fraction] 38.0 % Low 40.2-50.4 [facility] Comment on above: Performed By: #### G YASMINE ####[facility] (DEFAULT)[address] [place] [address], [place] [address] Hemoglobin (Bld) [Mass/Vol] 12.6 g/dL Low 13.4-16.8 [facility] Comment on above: Performed By: #### G ASALL ####[facility] (DEFAULT)[address] [place] [address] Ionized Calcium, Whole Blood 4.79 mg/dL Normal 4.60-5.30 [facility] Comment on above: Performed By: #### Vale UNDERWOOD ####[facility] (DEFAULT)[address] [place] [address] Lactate, Whole Blood 2.0 mmol/L High 0.5-1.6 [facility] Comment on above: Performed By: #### Vale UNDERWOOD ####[facility] (DEFAULT)[address] [place] [address] Methemoglobin 0.0 % Normal <=1.5 [facility] Comment on above: Performed By: #### Vale UNDERWOOD ####[facility] (DEFAULT)[address] [place] [address] Oxyhemoglobin 91 % Low 94-98 [facility] Comment on above: Performed By: #### Vale UNDERWOOD ####[facility] (DEFAULT)[address] [place] [facility] [address] pCO2 30 mm Hg Low 32-48 [facility] Comment on above: Performed By: #### Vale UNDERWOOD ####[facility] (DEFAULT)[address] [place] [address] pH (Bld) 7.48 [pH] High 7.35-7.45 [facility] Comment on above: Performed By: #### Vale UNDERWOOD ####[facility] (DEFAULT)[address] [place] [address] pO2 62 mm Hg Low 83-108 [facility] Comment on above: Performed By: #### Vale UNDERWOOD ####[facility] (DEFAULT)[address] [place] [address] Potassium [Moles/Vol] 4.2 mmol/L Normal 3.5-5.0 [facility] Comment on above: Performed By: #### Vale UNDERWOOD ####[facility] (DEFAULT)[address] [facility] [place] [address] sO2 92 % Low 94-98 [facility] Comment on above: Performed By: #### G YASMINE ####[facility] (DEFAULT)[address] [facility] [place] [address] Sodium [Moles/Vol] 130 mmol/L Low 135-145 [facility] Comment on above: Performed By: #### G YASMINE ####[facility] (DEFAULT)[address] [facility] [place] [address] Specimen type Nom (Spec) Arterial Normal [facility] Comment on above: Performed By: #### G YASMINE ####[facility] (DEFAULT)[address] [facility] [place] [address] Bacteria identified Respirat ory culture Nom (Unsp spec)on 09-04-2023 Bacteria identified Cx Nom (Unsp spec) NO GROWTH DAY 2 OF 2 [facility] Microscopic observation Other stain Nom (Unsp spec) Cytocentrifuge preparation [facility] Microscopic observation Other stain Nom (Unsp spec) Neutrophils, Rare [facility] Microscopic observation Other stain Nom (Unsp spec) Red Blood Cells Present [facility] Microscopic observation Other stain Nom (Unsp spec) No organisms seen [facility] Bacteria identified Respirat ory culture Nom (Unsp spec)Ordered By: Jose Salgado on 09-04-2023 Bacteria identified Cx Nom (Unsp spec) NO GROWTH DAY 2 OF 2 [facility] Microscopic observation Other stain Nom (Unsp spec) Cytocentrifuge preparation [facility] Microscopic observation Other stain Nom (Unsp spec) Neutrophils, Moderate [facility] Microscopic observation Other stain Nom (Unsp spec) Red Blood Cells Present [facility] Microscopic observation Other stain Nom (Unsp spec) No organisms seen [facility] CBC,PLATELETSon 09-04-2023 Erythrocyte distribution width (RBC) [Ratio] 13.2 % 10.9 - 14.3 % [facility] Hematocrit (Bld) [Volume fraction] 38.7 % Low 39.6 - 48.8 % [facility] Hemoglobin (Bld) [Mass/Vol] 12.3 g/dL Low 13.4 - 16.8 g/dL [facility] Interpretation and review of laboratory results Abnormal [facility] MCH (RBC) [Entitic mass] 27.9 pg 26.1 - 33.3 pg [facility] MCHC (RBC) [Mass/Vol] 31.8 g/dL Low 31.9 - 36.5 g/dL [facility] MCV (RBC) [Entitic vol] 87.8 fL 79.0 - 94.5 fL [facility] Platelet mean volume (Bld) [Entitic vol] 9.8 fL 8.7 - 12.3 fL [facility] Platelets (Bld) [#/Vol] 173 10*3/uL 146 - 337 K/uL [facility] RBC (Bld) [#/Vol] 4.41 10*6/uL [facility] WBC (Bld) [#/Vol] 4.57 10*3/uL 3.73 - 10. 10 K/uL [facility] Hematocrit (Bld) [Volume fraction] 38.7 % Low 39.6-48.8 [facility] Comment on above: Performed By: #### H [facility] ####[facility] (DEFAULT)[address] [place] [address] Hemoglobin (Bld) [Mass/Vol] 12.3 g/dL Low 13.4-16.8 [facility] Comment on above: Performed By: #### H [facility] ####[facility] (DEFAULT)[address] [place] [address] MCV (RBC) [Entitic vol] 87.8 fL Normal 79.0-94.5 [facility] Comment on above: Performed By: #### H [facility] ####[facility] (DEFAULT)[address] [place] [address] Mean Cell Hgb 27.9 pg Normal 26.1-33.3 [facility] Comment on above: Performed By: #### H EMOGC ####[facility] (DEFAULT)[address] [place] [address] Mean Cell Hgb Conc 31.8 g/dL Low 31.9-36.5 [facility] Comment on above: Performed By: #### H EMOGC ####[facility] (DEFAULT)[address] [place] [address] Platelet mean volume (Bld) [Entitic vol] 9.8 fL Normal 8.7-12.3 [facility] Comment on above: Performed By: #### H EMOGC ####[facility] (DEFAULT)[address] [place] [address] Platelets (Bld) [#/Vol] 173 10*3/uL Normal 146-337 [facility] Comment on above: Performed By: #### H EMOGC ####[facility] (DEFAULT)[address] [place] [address] RBC (Bld) [#/Vol] 4.41 10*6/uL Normal 4.38-5.83 [facility] Comment on above: Performed By: #### H EMOGC ####[facility] (DEFAULT)[address] [place] [address] RBC Distribution 13.2 % Normal 10.9-14.3 [facility] Comment on above: Performed By: #### H EMOGC ####[facility] (DEFAULT)[address] [place] [address] WBC (Bld) [#/Vol] 4.57 10*3/uL Normal 3.73-10.10 [facility] Comment on above: Performed By: #### H EMOGC ####[facility] (DEFAULT)[address] [place] [address] CHEM 7 (LYTES,BUN,CREA,GLUC) on 09-04-2023 Anion gap [Moles/Vol] 16 mmol/L 7 - 17 mmol/L [facility] Chloride [Moles/Vol] 104 mmol/L 98 - 10 8 mmol/L [facility] CO2 [Moles/Vol] 18 mmol/L Low 21 - 31 mmol/L [facility] Creatinine [Mass/Vol] 1.22 mg/dL 0.70 - 1.30 mg/dL [facility] eGFR, CKD-EPI, Male 71 - [facility] Glucose [Mass/Vol] 124 mg/dL High 70 - 99 mg/dL [facility] Osmolality Calc [Osmolality] 284 [facility] Potassium [Moles/Vol] 3.9 mmol/L 3.5 - 5.0 mmol/L [facility] Sodium [Moles/Vol] 134 mmol/L Low 135 - 145 mmol/L [facility] Urea nitrogen [Mass/Vol] 15 mg/dL 7 - 25 mg/dL [facility] Urea nitrogen/Creatinine [Mass ratio] 12 mg/mg [facility] Anion gap [Moles/Vol] 16 mmol/L Normal 7-17 [facility] Comment on above: Performed By: #### TJ RAMÍREZ7, HFP ####[facility] (DEFAULT)[address] [place] [address] Chloride [Moles/Vol] 104 mmol/L Normal 98-108 [facility] Comment on above: Performed By: #### Rod BLOOM CHM7, HFP ####[facility] (DEFAULT)[address] [place] [address] CO2 [Moles/Vol] 18 mmol/L Low 21-31 [facility] Comment on above: Performed By: #### Rod BLOOM CHM7, HFP ####[facility] (DEFAULT)[address] [place] [address] Creatinine [Mass/Vol] 1.22 mg/dL Normal 0.70-1.30 [facility] Comment on above: Performed By: #### NATHANIEL RAMÍREZ, HFP ####[facility] (DEFAULT)[address] [place] [address] GFR/1.73 sq M.predicted among non-blacks MDRD (S/P/Bld) [Vol rate/Area] 71 mL/min/{1.73_m2} Normal >=60 [facility] Comment on above: Result Comment: Repo rted eGFR is based on the CKD-EPI 2020 equation using creatinine, age, and sex. Performed By: #### NATHANIEL RAMÍREZ, HFP ####[facility] (DEFAULT)[address] [place] [address] Glucose [Mass/Vol] 124 mg/dL High 70-99 [facility] Comment on above: Performed By: #### NATHANIEL RAMÍREZ, HFP ####[facility] (DEFAULT)[address] [place] [address] Osmolality [Osmolality] 284 mosm/kg Normal 278-305 [facility] Comment on above: Performed By: #### NATHANIEL RAMÍREZ, HFP ####[facility] (DEFAULT)[address] [place] [address] Potassium [Moles/Vol] 3.9 mmol/L Normal 3.5-5.0 [facility] Comment on above: Performed By: #### NATHANIEL RAMÍREZ, HFP ####[facility] (DEFAULT)[address] [place] [address] Sodium [Moles/Vol] 134 mmol/L Low 135-145 [facility] Comment on above: Performed By: #### NATHANIEL RAMÍREZ, HFP ####[facility] (DEFAULT)[address] [place] [address] Urea nitrogen [Mass/Vol] 15 mg/dL Normal 7-25 [facility] Comment on above: Performed By: #### M NATHANIEL BLOOM, HFP ####[facility] (DEFAULT)[address] [place] [address] Urea nitrogen/Creatinine [Mass ratio] 12 mg/mg Normal [facility] Comment on above: Performed By: #### M NATHANIEL BLOOM, HFP ####[facility] (DEFAULT)[address] [place] [address] CMV PCR,FLUIDS,URINE,EYE ETC on 09-04-2023 Specimen source Nom (Unsp spec) BAL LLL [facility] Specimen source Nom (Unsp spec) BAL RML [facility] HEPATIC FUNCTION PANELon Albumin [Mass/Vol] 3.0 g/dL Low 3.5 - 5.0 g/dL [facility] ALP [Catalytic activity/Vol] 112 U/L 32 - 126 U/L [facility] ALT [Catalytic activity/Vol] 22 U/L 10 - 52 U/L [facility] AST [Catalytic activity/Vol] 30 U/L 10 - 39 U/L [facility] Bilirubin [Mass/Vol] 1.2 mg/dL NINF - 1.5 mg/dL [facility] Bilirubin.direct [Mass/Vol] 0.4 mg/dL High NINF - 0.3 mg/dL [facility] Protein [Mass/Vol] 6.4 g/dL 6.4 - 8.3 g/dL [facility] Albumin [Mass/Vol] 3.0 g/dL Low 3.5-5.0 [facility] Comment on above: Performed By: #### M NATHANIEL BLOOM, HFP ####[facility] (DEFAULT)[address] [place] [address] ALP [Catalytic activity/Vol] 112 U/L Normal 32-126 [facility] Comment on above: Performed By: #### M NATHANIEL BLOOM, HFP ####[facility] (DEFAULT)[address] [place] [address] ALT [Catalytic activity/Vol] 22 U/L Normal 10-52 [facility] Comment on above: Performed By: #### NATHANIEL RAMÍREZ, HFP ####[facility] (DEFAULT)[address] [place] [address] AST [Catalytic activity/Vol] 30 U/L Normal 10-39 [facility] Comment on above: Performed By: #### NATHANIEL RAMÍREZ, HFP ####[facility] (DEFAULT)[address] [place] [address] Bilirubin [Mass/Vol] 1.2 mg/dL Normal <1.5 [facility] Comment on above: Performed By: #### NATHANIEL RAMÍREZ, HFP ####[facility] (DEFAULT)[address] [place] [address] Bilirubin.indirect [Mass/Vol] 0.4 mg/dL High <0.3 [facility] Comment on above: Performed By: #### NATHANIEL RAMÍREZ, HFP ####[facility] (DEFAULT)[address] [place] [address] Protein [Mass/Vol] 6.4 g/dL Normal 6.4-8.3 [facility] Comment on above: Performed By: #### NATHANIEL RAMÍREZ, HFP ####[facility] (DEFAULT)[address] [place] [address] LEGIONELLA PCRon 09-04-2023 Legionella sp rRNA Probe Ql (Unsp spec) Negative Not Applicable [facility] Specimen source Nom (Unsp spec) BAL RML [facility] - Microbiology an d Antimicrobial susceptibilityon 09-04-2023 CMV DNA ESTELITA+probe Ql (Unsp spec) Negative Negative [facility] MAGNESIUMon 09-04-2023 Magnesium [Mass/Vol] 1.4 mg/dL Low 1.6 - 2 .6 mg/dL [facility] Magnesium [Mass/Vol] 1.4 mg/dL Low 1.6-2.6 [facility] Comment on above: Performed By: #### M , CHM7, [facility] ####[facility] (DEFAULT)[address] [place] [address] No Panel Informationon 09-04 Annotation comment [Interpretation] Narrative DNR [facility] PN Report Status DNR [facility] Pneumocystis jiroveci,PCR result Negative Not Applicable [facility] Interpretation and review of laboratory results Abnormal [facility] PNEUMOCYSTIS JIROVECI,PCRon 09-04-2023 Specimen source Nom (Unsp spec) BAL LLL [facility] Specimen source Nom (Unsp spec) BAL RML [facility] Portable XR Chest Viewson RADIOLOGY RADIOLOGY [facility] Radiology Study observation (narrative) [facility] Portable XR Chest ViewsOrder ed By: Joanie Nugent on 09-04-2023 [facility] Work Phone: TACROLIMUS LEVEL, TROUGH (NC E DRUG LEVEL)on 09-04-2023 Interpretation and review of laboratory results Abnormal [facility] Tacrolimus (Bld) [Mass/Vol] 3.6 ng/mL Low [facility] Tacrolimus, Trough 3.6 ng/mL Low Bone Susana ow Transplant: 4.0-12.0, Therapeutic: 5.0-15.0 [facility] Comment on above: Order Comment: Pleas e draw at specified interval PRIOR to dose. Do not hold dose to wait for level. Specimens batched twice per day, (M-F) and once per day weekendsMethod performed is a chemiluminescent microparticle immunoasssay on the [employer] i2000.The range is based on experience at [facility] and users should be aware that target concentrations vary widely depending on concomitant therapy, time post-transplant, and desired degree of immunosuppression. Performed By: #### T ACRO ####[facility] (DEFAULT)[address] [place] [address] XR CHEST PORTABLEon 09-04-20 XR CHEST PORTABLE Normal [facility] ASPERGILLUS ANTIGEN, BALon 1 Galactomannan Ag IA Qn (Unsp spec) <0.500 NINF [facility] Galactomannan Ag IA Qn (Unsp spec) <0.500 NINF [facility] BAL CONSULTOrdered By: Noa Peralta on 09-03-2023 ALVEOLAR MACROPHAGES 32 % [facility] Work Phone: Bal comments Correlation with microbiology stains and cultures is recommended. [facility] Work Phone: Bal Diff Quik Stain Quality Check Acceptable [facility] Work Phone: BKR BAL INTERPRETATION Cellular specimen comprised of alveolar macrophages and small lymphocytes. No definitive microorganisms are observed. Moderate degenerative changes. [facility] Work Phone: BKR DX CODE Use Ordering [facility] Work Phone: Eosinophils Patterson stain Ql (Unsp spec) 0 % [facility] Work Phone: Lymphocytes/100 WBC (Bld) 57 % [facility] Work Phone: Neutrophils/100 WBC Manual cnt (Bronch spec) 11 % [facility] Work Phone: Pathologist review Jame (Unsp spec) [Interp] Leonardo Peralta MD [facility] Work Phone: [facility] Work Phone: BAL CONSULTon 09-03-2023 ALVEOLAR MACROPHAGES 33 % [facility] Bal comments Correlation with microbiology stains and cultures is recommended. Correlation with viral studies is recommended. [facility] Bal Diff Quik Stain Quality Check Acceptable [facility] BKR BAL INTERPRETATION Cellular specimen comprised of alveolar macrophages and small lymphocytes. No definitive microorganisms are observed. Rare degenerating cells with changes suggestive of viral cytopathic effect are noted. Moderate degenerative changes. [facility] BKR DX CODE Use Ordering [facility] Eosinophils Patterson stain Ql (Unsp spec) 0 % [facility] Lymphocytes/100 WBC (Bld) 49 % [facility] Neutrophils/100 WBC Manual cnt (Bronch spec) 18 % [facility] Pathologist review Jame (Unsp spec) [Interp] Leonardo Peralta MD [facility] BRONCHOSCOPYon 09-03-2023 LAB, [facility] CBC,PLATELETSon 09-03-2023 Erythrocyte distribution width (RBC) [Ratio] 13.4 % 10.9 - 14.3 % [facility] Hematocrit (Bld) [Volume fraction] 39.6 % 39.6 - 48.8 % [facility] Hemoglobin (Bld) [Mass/Vol] 12.8 g/dL Low 13.4 - 16.8 g/dL [facility] Interpretation and review of laboratory results Abnormal [facility] MCH (RBC) [Entitic mass] 27.8 pg 26.1 - 33.3 pg [facility] MCHC (RBC) [Mass/Vol] 32.3 g/dL 31.9 - 36.5 g/dL [facility] MCV (RBC) [Entitic vol] 85.9 fL 79.0 - 94.5 fL [facility] Platelet mean volume (Bld) [Entitic vol] 9.4 fL 8.7 - 12.3 fL [facility] Platelets (Bld) [#/Vol] 222 10*3/uL 146 - 337 K/uL [facility] RBC (Bld) [#/Vol] 4.61 10*6/uL [facility] WBC (Bld) [#/Vol] 4.36 10*3/uL 3.73 - 10. 10 K/uL [facility] Hematocrit (Bld) [Volume fraction] 39.6 % Normal 39.6-48.8 [facility] Comment on above: Performed By: #### H EMOGC ####[facility] (DEFAULT)[address] [place] [address] Hemoglobin (Bld) [Mass/Vol] 12.8 g/dL Low 13.4-16.8 [facility] Comment on above: Performed By: #### H EMOGC ####[facility] (DEFAULT)[address] [place] [address] MCV (RBC) [Entitic vol] 85.9 fL Normal 79.0-94.5 [facility] Comment on above: Performed By: #### H EMOGC ####[facility] (DEFAULT)[address] [place] [address] Mean Cell Hgb 27.8 pg Normal 26.1-33.3 [facility] Comment on above: Performed By: #### H EMOGC ####[facility] (DEFAULT)[address] [place] [address] Mean Cell Hgb Conc 32.3 g/dL Normal 31.9-36.5 [facility] Comment on above: Performed By: #### H EMOGC ####[facility] (DEFAULT)[address] [place] [address] Platelet mean volume (Bld) [Entitic vol] 9.4 fL Normal 8.7-12.3 [facility] Comment on above: Performed By: #### H EMOGC ####[facility] (DEFAULT)[address] [place] [address] Platelets (Bld) [#/Vol] 222 10*3/uL Normal 146-337 [facility] Comment on above: Performed By: #### H EMOGC ####[facility] (DEFAULT)[address] [place] [address] RBC (Bld) [#/Vol] 4.61 10*6/uL Normal 4.38-5.83 [facility] Comment on above: Performed By: #### H [facility] ####[facility] (DEFAULT)[address] [place] [address] RBC Distribution 13.4 % Normal 10.9-14.3 [facility] Comment on above: Performed By: #### H [facility] ####[facility] (DEFAULT)[address] [place] [address] WBC (Bld) [#/Vol] 4.36 10*3/uL Normal 3.73-10.10 [facility] Comment on above: Performed By: #### H [facility] ####[facility] (DEFAULT)[address] [place] [address] CHEM 7 (LYTES,BUN,CREA,GLUC) on 09-03-2023 Anion gap [Moles/Vol] 12 mmol/L 7 - 17 mmol/L [facility] Chloride [Moles/Vol] 104 mmol/L 98 - 10 8 mmol/L [facility] CO2 [Moles/Vol] 24 mmol/L 21 - 31 mmol/L [facility] Creatinine [Mass/Vol] 1.20 mg/dL 0.70 - 1.30 mg/dL [facility] eGFR, CKD-EPI, Male 73 [facility] Glucose [Mass/Vol] 112 mg/dL High 70 - 99 mg/dL [facility] Osmolality Calc [Osmolality] 288 [facility] Potassium [Moles/Vol] 4.1 mmol/L 3.5 - 5.0 mmol/L [facility] Sodium [Moles/Vol] 136 mmol/L 135 - 145 mmol/L [facility] Urea nitrogen [Mass/Vol] 17 mg/dL 7 - 25 mg/dL [facility] Urea nitrogen/Creatinine [Mass ratio] 14 mg/mg [facility] Anion gap [Moles/Vol] 12 mmol/L Normal 7-17 [facility] Comment on above: Performed By: #### M NATHANIEL BLOOM, HFP ####U [facility] (DEFAULT)[address] [place] [address] Chloride [Moles/Vol] 104 mmol/L Normal 98-108 [facility] Comment on above: Performed By: #### M NATHANIEL BLOOM, HFP ####U [facility] (DEFAULT)[address] [place] [address] CO2 [Moles/Vol] 24 mmol/L Normal 21-31 [facility] Comment on above: Performed By: #### M NATHANIEL BLOOM, HFP ####U [facility] (DEFAULT)[address] [place] [address] Creatinine [Mass/Vol] 1.20 mg/dL Normal 0.70-1.30 [facility] Comment on above: Performed By: #### NATHANIEL RAMÍREZ, HFP ####U [facility] (DEFAULT)[address] [facility] [place] [address] GFR/1.73 sq M.predicted among non-blacks MDRD (S/P/Bld) [Vol rate/Area] 73 mL/min/{1.73_m2} Normal >=60 [facility] Comment on above: Result Comment: Repo rted eGFR is based on the CKD-EPI 2020 equation using creatinine, age, and sex. Performed By: #### M NATHANIEL BLOOM, HFP ####U [facility] (DEFAULT)[address] [place] [address] Glucose [Mass/Vol] 112 mg/dL High 70-99 [facility] Comment on above: Performed By: #### NATHANIEL RAMÍREZ, HFP ####U [facility] (DEFAULT)[address] [place] [address] Osmolality [Osmolality] 288 mosm/kg Normal 278-305 [facility] Comment on above: Performed By: #### M NATHANIEL BLOOM, HFP ####[facility] (DEFAULT)[address] [place] [address] Potassium [Moles/Vol] 4.1 mmol/L Normal 3.5-5.0 [facility] Comment on above: Performed By: #### M MERLE CHM7, HFP ####[facility] (DEFAULT)[address] [place] [address] Sodium [Moles/Vol] 136 mmol/L Normal 135-145 [facility] Comment on above: Performed By: #### M HELEN BLOOMM7, HFP ####[facility] (DEFAULT)[address] [place] [address] Urea nitrogen [Mass/Vol] 17 mg/dL Normal 7-25 [facility] Comment on above: Performed By: #### Rod BLOOM CHM7, HFP ####[facility] (DEFAULT)[address] [place] [address] Urea nitrogen/Creatinine [Mass ratio] 14 mg/mg Normal [facility] Comment on above: Performed By: #### Rod BLOOM CHM7, HFP ####[facility] (DEFAULT)[address] [place] [address] CYTOLOGY, NON-GYNOrdered By: Sherice Jimenez on 09-03-2023 CYTOLOGIC DIAGNOSIS c3vafSVpRJOfnQRhOQPvG0syufP kGIWmcORvE8TasxlaQNvqUO7tKN 4aqGoiqJBjrZYaIWZcSsZlf8ewd 906vZBwm4hdGNOMqrjhnNm4y8bo NWQMoW5zo6u6yR11JPNkeP1mzXX uKKhoppMbKOvhtbZiwrBgHhu3QF D1fPjaBrchdRR8kKGwnNP3XQzky 8XhaNtcmOjqBGZ7ZDEzQlllLLss uAZ1fZDfmZeehMNeCL7ya3zroPS 6knNvEUO8mOghnEA2lZbuohvzm0 luqPL2uHK7MJkvcQT0ZBocZpVmQ 5pmWRLbkV1bN46bN5meVOHjqAhy FOzcNJEilOX9XZJ4JPLhv0ylGDK lxUXtqFWlHaKrWHfcVdr9p6bnUD PbiP91uMQcdkD7fVtkFOjzdET4X O69RVxqk8ZtDOYeuEaoYBLbdW0o YzIzXGxldmVsbmZjbjIzXGxldmV fccNkQFhmisMui8OmtjXkkAY0UL iysnTltTU2aRlcIPQxZ2D7F448Y CtdoeGcfiCrTqZplki1EJAsfHfi bGlzdGxldmVsXGxldmVsbmZjMjN ecYY6MHnaEtLyOjPqvBJ7JWcaIm RhyDI9DWqabHEvqLH3QMkpiLB1R Ut0XVu1VRudZMtnDlk5vUrixDW1 WHmatD2xXADgR77pPkS7w4fdjOA 6kMA4RFswcAX5ZIneAoDeS6yzHY DhnZ5lR24zX0woCHXilXqyPZcyM MGrhAG3SOI2XUFid7biCWHiyXCy jEHcEzCtFSbaXtr8f8giNPVvgA6 6aYIpjvK7aExrVX82TUcqw5CwHT UdtLyvCOMbfZ1zEyGkJIyvlnPgz mZjbjIzXGxldmVsamMwXGxldmVs d9QgczVejTX1KYfwfeDovWQ0eAm hRMIeI3Z8K846BNspnlMrzeSzAg Ilzwf6WDHgyAqcbMmkhYrfoqNxO FjsxvPyglRiLzOvdNJ1TVgyNaFs BqCxcMN1GNtfLhDmeBO2YNvfvID wlNL2NJbtwJW6SLh3LJj0EVueJJ ktOxc5yBoheIS4GTgwgT3sRMNbN 02hKkQ7u5zmoCE3mPR0DAfqyTY2 AZxpCqTfF7awBCQvfF3dS44vM0o gZCXyiFvfTBkqGOJehUQ2REK9PP Ktw6tvFJHdnYYbbSVpXpCwKEupO vu5s9vcOTMkzW26fDXpzzR5oQqz PX08WWtds3LsUGJcgVvrNOWdhB9 mYzIzXGxldmVsbmZjbjIzXGxldm WtivAvFMnqbuQjf3JqtpLhaWK9O ZqurdBftHF4fHkmGUVnY3X5S985 DJpozaHdauMyKcGghib9YZErxZg cbGlzdGxldmVsXGxldmVsbmZjMj YzaOM3BQapQyJkSlMheWM5RXlyP eIuoEL1KKltoOKuoNE0QFfpwPM5 WEl1YFw4QHnmTMavMgm6lXqduEK 9OYrmqO4fYUFzZ32lOmX4aD01UL cwyJkhoF13OCUziDGvfMSjlWI2P VpnsHsryA92KAJvwHPuRDfxe9Tx MWPtFyX1RCT1ONMfuQxkrT63BFT xwFQyF501tzEdWMifMY82PXSujO ArlxQqQtWgUWJuhBLplST4FWGoH G8brzkoKDzqLPgmAYZkmkS9KTWt jPBxK8NfWLLnCF5ohbeyEQI9SBg jEDLsIEW8BsTjKJKzr9Rlrzz1Tg JxiPq3p8mhHNXcQCBlyPfkf8fdU OI5SAJjpWSzJ8fqzG1uBNXeGB6p dvxeq6baKBakZJagHRNdnEL2fpD 0CSCgqNWdQ3FjxJ2yZCEyBZLixu FwqRhegX0qTivfzlBkPKNyFRMVD wHOLp8OY3oHNIjFMD7SQSGcYTVB PMzZQKYSCWMDUMiSR9FTGXsEGoZ yMSSpUVLwN8mHC2dRW3ntGkxjDe VsWQljKDOpScHsD1TiDROwfsroI JQbBJYNXN8MZNQDHQMZJs9NKMB2 EAXsqfrmhVW9WPgmouOtvAk9hRL zzKbnnZ4gBhoogcCoBHDnMEBSgz YRXCknN21nzwZaU2OnbZHwYANhW IjkTW75bVYeVXVilOEoVLp9gY8o VDsyvRxmrbVJmIAufS6nqjpqUVc jZjBccGFyXGxpMFxsczBccGFyfQ == [facility] Work Phone: Case Report [facility] Work Phone: Clinical History k0pvoJUkLUXfcWBqRZRz G1bvyrS kWXVqiOSrX3WyobtaRRctET1dWZ 4kbYhvyVHrdPAwRSJaZmXpg5zkz 275gCYpe2exOADRzgshwUa9hFlv S92za0E8AywkN9daMKXfXAnzSPB rVTmboEWgXMc6LYKuwTFikgYrTl TuOSZacQJebVP4WXGtQM0kauirM MahCQxlRHWbdqN2LTXnaZNtB5Ra WJAxNF5uonsgHDE5KTihLMEoVMH 8FnRgWADtw1Ngblh8LtWstNn7d6 rmPZOfFOXtoXcxt7zhJOL8XAPtf OGhU6cyrV0cATCpOT8dmoivk0ol AHzvRZfoVIEroDI4ngQ3WDJunDM aC3AakE9gMGJfNGVkefVmvNymuM 5cZnMyMFxjZjEgUmVuYWwgdHJhb uEijHBwtL3eDYEsrg3= [facility] Work Phone: For Immediate Release to Patient's MyChart? Yes Yes [facility] Work Phone: Gross Description w1llgNBjOUGofMAzLIGo X7iwsnA cHUVhyVAfK7MypyzpCJxzSY1wYV 2raRgotNUtsGSaLRBvFiMkp5awn 971nJSbq3htUTVAuoiofZp0yZvf P09xd7V5LvjlY64gbTCqKNA0OLQ dMFGoxWEvFKNhMOV0YJVgpFDqH5 ucNQChQA9qphatYTwxXWooBPKlp TN4FEYpmJPbH6GxYKNwNRjhWJFp oly4ExBsSo2uwEOgaCjpZJgqUIO kXHBsYWluXGZzMjAgTExMIEJBTF pxAAImXBRoqIUeSHm6WQSllG9xj LUslaTafMOopM3bcYdsMGbxOLSi WGDFGDZaoOfcIBRPILVtw8WqrS6 ccGFyXHBhcmRccGFyXHBhcn0= [facility] Work Phone: [facility] Work Phone: HEPATIC FUNCTION PANELon Albumin [Mass/Vol] 3.2 g/dL Low 3.5 - 5.0 g/dL [facility] ALP [Catalytic activity/Vol] 118 U/L 32 - 126 U/L [facility] ALT [Catalytic activity/Vol] 25 U/L 10 - 52 U/L [facility] AST [Catalytic activity/Vol] 32 U/L 10 - 39 U/L [facility] Bilirubin [Mass/Vol] 1.0 mg/dL [place] [address] mg/dL [facility] Bilirubin.direct [Mass/Vol] 0.3 mg/dL High NINF - 0.3 mg/dL [facility] Protein [Mass/Vol] 6.5 g/dL 6.4 - 8.3 g/dL [facility] Albumin [Mass/Vol] 3.2 g/dL Low 3.5-5.0 [facility] Comment on above: Performed By: #### M MERLE CHM7, HFP ####[facility] (DEFAULT)[address] [place] [address] ALP [Catalytic activity/Vol] 118 U/L Normal 32-126 [facility] Comment on above: Performed By: #### M MERLE CHM7, HFP ####[facility] (DEFAULT)[address] [place] [address] ALT [Catalytic activity/Vol] 25 U/L Normal 10-52 [facility] Comment on above: Performed By: #### M MERLE CHM7, HFP ####[facility] (DEFAULT)[address] [place] [address] AST [Catalytic activity/Vol] 32 U/L Normal 10-39 [facility] Comment on above: Performed By: #### M GO CHM7, HFP ####[facility] (DEFAULT)[address] [place] [address] Bilirubin [Mass/Vol] 1.0 mg/dL Normal <1.5 [facility] Comment on above: Performed By: #### M GO CHM7, HFP ####[facility] (DEFAULT)[address] [place] [address] Bilirubin.indirect [Mass/Vol] 0.3 mg/dL High <0.3 [facility] Comment on above: Performed By: #### M GO CHM7, HFP ####[facility] (DEFAULT)[address] [place] [address] Protein [Mass/Vol] 6.5 g/dL Normal 6.4-8.3 [facility] Comment on above: Performed By: #### M , CHM7, [facility] ####[facility] (DEFAULT)[address] [place] [address] HISTOPLASMA AND BLASTOMYCES ANTIGEN, ENZYME IMMUNOASSAY, SERMon 09-03-2023 Histoplasma/Blastomy antonia Ag Result Detected Critically abnormal Not Detected [facility] Histoplasma/Blastomy antonia Ag Value 5.3 ng/mL [facility] Interpretation and review of laboratory results Abnormal [facility] IMMUNOPHENOTYPING, TISSUE/FL UIDon 09-03-2023 BKR DX CODE Use Ordering Normal [facility] Comment on above: Order Comment: Pleas e lab add on to specimen collected yesterdayIMMUNOPHENOTYPING DIAGNOSISPATIENT NAME: GEORGE SLATER: 1970MRN: [id number]#: [id number] BY: Yossi Perla M.D,, Ph.D. [id number] TYPE: Bronchial Alveolar LavageLABORATORY INTERPRETATION:There is no [...] performance characteristicsdetermined The Flow Cytometry Laboratory at [facility]. It has notbeen cleared or approved by the FDA. This laboratory is certifiedunder the Clinical Laboratory Improvement Amendments (CLIA)as qualified to perform high complexity clinical laboratorytesting. This test is used for clinical purposes. It should notbe regarded as investigational or for research.The [facility] Flow Cytometry Laboratory lower limitof CLL MRD detection is 0.1% of the gated lymphocytes. Performed By: #### G IPP ####[facility] (DEFAULT)[address] [place] [address] Flow Interpretation See Comment Normal [facility] Comment on above: Order Comment: Dilan gregory lab add on to specimen collected yesterdayIMMUNOPHENOTYPING DIAGNOSISPATIENT NAME: GEORGE SLATER: 1970MRN: [id number]#: [id number] BY: Yossi Perla M.D,, Ph.D. [id number] TYPE: Bronchial Alveolar LavageLABORATORY INTERPRETATION:There is no [...] performance characteristicsdetermined The [facility] Cytometry [facility] at [facility]. It has notbeen cleared or approved by the FDA. This laboratory is certifiedunder the Clinical Laboratory Improvement Amendments (CLIA)as qualified to perform high complexity clinical laboratorytesting. This test is used for clinical purposes. It should notbe regarded as investigational or for research.The [facility] Flow Cytometry Laboratory lower limitof CLL MRD detection is 0.1% of the gated lymphocytes. Performed By: #### G IPP ####[facility] ([place] [address] Flow Interpreted by: Yossi Perla MD, PhD [place] [facility] Comment on above: Order Comment: Dilan gregory lab add on to specimen collected yesterdayIMMUNOPHENOTYPING DIAGNOSISPATIENT NAME: GEORGE SLATER: 1970MRN: [id number]#: [id number] BY: Yossi Perla M.D,, Ph.D. [id number] TYPE: Bronchial Alveolar LavageLABORATORY INTERPRETATION:There is no [...] performance characteristicsdetermined The Flow Cytometry Laboratory at [facility]. It has notbeen cleared or approved by the FDA. This laboratory is certifiedunder the Clinical Laboratory Improvement Amendments (CLIA)as qualified to perform high complexity clinical laboratorytesting. This test is used for clinical purposes. It should notbe regarded as investigational or for research.The [facility] Flow Cytometry Laboratory lower limitof CLL MRD detection is 0.1% of the gated lymphocytes. Performed By: #### G IPP ####[facility] (DEFAULT)[address] [place] [address] MAGNESIUMon 09-03-2023 Interpretation and review of laboratory results Normal [facility] Magnesium [Mass/Vol] 1.6 mg/dL 1.6 - 2 .6 mg/dL [facility] Magnesium [Mass/Vol] 1.6 mg/dL Normal 1.6-2.6 [facility] Comment on above: Performed By: #### M GO, CHM7, [facility] ####[facility] (DEFAULT)[address] [place] [address] No Panel Informationon 09-03 Interpretation and review of laboratory results Abnormal [facility] PARVOVIRUS (B19) DNA, PCR, B LOODon 09-03-2023 PARVOVIRUS B19 BY RAPID PCR Not detected Not Detected [facility] NC SPEC SOURCE Whole Blood [facility] Portable XR Chest Viewson RADIOLOGY RADIOLOGY [facility] Radiology Study observation (narrative) [facility] Portable XR Chest ViewsOrder ed By: [place] on 09-03-2023 [facility] Work Phone: XR CHEST PORTABLEon 09-03-20 23 XR CHEST PORTABLE Normal [facility] ACID FAST CULTUREon 09-02-20 23 Bacteria identified Cx Nom (Unsp spec) NO GROWTH DAY 42 OF 42 Normal [facility] Comment on above: Performed By: #### A FB ####[facility] (DEFAULT)[address] [facility] [place] [address] Fluorochrome Stain No acid Fast Bacillus Seen Normal [facility] Comment on above: Performed By: #### A FB ####[facility] (DEFAULT)[address] [facility] [place] [address] Bacteria identified Cx Nom (Unsp spec) NO GROWTH DAY 42 OF 42 Normal [facility] Comment on above: Order Comment: BAL A FB culture. Clinical suspicion for non-tuberculous mycobacteria Performed By: #### A FB ####[facility] (DEFAULT)[address] [facility] [place] [address] Fluorochrome Stain No acid Fast Bacillus Seen Normal [facility] Comment on above: Order Comment: BAL A FB culture. Clinical suspicion for non-tuberculous mycobacteria Performed By: #### A FB ####[facility] (DEFAULT)[address] [facility] [place] [address] ASPERGILLUS (GALACTOMANNAN), ANTIGENon 09-02-2023 Galactomannan Ag IA Qn <0.500 NINF [facility] ASPERGILLUS ANTIGEN, BALon 1 Aspergillus Galactomannan Antigen, BAL <0.500 Normal <0.5 [facility] Comment on above: Result Comment: ---- ADDITIONAL INFORMATION This is a qualitative test and the resulted index value isnot indicative of disease severity. Serial testing isrecommended for patients at high risk for invasiveaspergillosis.This assay was performed using the FDA-cleared [employer] Aspergillus Galactomannan EIA.Test Performed by:[address] Director: Rosendo Bose M.D. Ph.D.; CLIA# [id number] Performed By: #### X ASGFL ####[facility] (DEFAULT)[address] [address] Aspergillus Galactomannan Antigen, BAL <0.500 Normal <0.5 [facility] Comment on above: Order Comment: BAL a spirgillus antigen Result Comment: ---- ADDITIONAL INFORMATION This is a qualitative test and the resulted index value isnot indicative of disease severity. Serial testing isrecommended for patients at high risk for invasiveaspergillosis.This assay was performed using the FDA-cleared [employer] Aspergillus Galactomannan EIA.Test Performed by:[address] Director: Rosendo Bose M.D. Ph.D.; CLIA# [id number] Performed By: #### X ASGFL ####[facility] (DEFAULT)[address] [place] [address] ATYPICAL BACTERIAL PNEUMONIA ,PCROrdered By: Shari Contreras on 09-02-2023 B. parapertussis DNA ESTELITA+probe Ql (Unsp spec) Not detected Not Detected [facility] B. pertussis DNA ESTELITA+probe Ql (Unsp spec) Not detected Not Detected [facility] C. pneumoniae DNA ESTELITA+probe Ql (Unsp spec) Not detected Not Detected [facility] Interpretation and review of laboratory results Normal [facility] M. pneumoniae DNA ESTELITA+probe Ql (Unsp spec) Not detected Not Detected [facility] ATYPICAL BACTERIAL PNEUMONIA ,PCRon 09-02-2023 Bordetella Parapertussis Not detected Normal Not Detected [facility] [...] by The Clinical Microbiology Laboratory at [facility]. It has not been cleared or approved by the FDA. The laboratory is required under CLIA as qualified to perform high-complexity testing. This test is used for clinical purposes. It should not be regarded as investigational or for research. Performed By: #### A TYPNE ####[facility] (DEFAULT)[address] [place] [address] Bordetella Pertussis Not detected Normal Not Detected [facility] [...] by The Clinical Microbiology Laboratory at [facility]. It has not been cleared or approved by the FDA. The laboratory is required under CLIA as qualified to perform high-complexity testing. This test is used for clinical purposes. It should not be regarded as investigational or for research. Performed By: #### A TYPNE ####[facility] (DEFAULT)[address] [address] Chlamydia Pneumoniae Not detected Normal Not Detected [facility] [...] by The Clinical Microbiology Laboratory at [facility]. It has not been cleared or approved by the FDA. The laboratory is required under CLIA as qualified to perform high-complexity testing. This test is used for clinical purposes. It should not be regarded as investigational or for research. Performed By: #### A TYPNE ####[facility] (DEFAULT)[address] [address] Mycoplasma Pneumoniae Not detected Normal Not Detected [facility] [...] by The Clinical Microbiology Laboratory at [facility]. It has not been cleared or approved by the FDA. The laboratory is required under CLIA as qualified to perform high-complexity testing. This test is used for clinical purposes. It should not be regarded as investigational or for research. Performed By: #### A TYPNE ####[facility] (DEFAULT)[address] [address] BAL CONSULTon 09-02-2023 ALVEOLAR MACROPHAGES 33 % Normal [facility] Comment on above: Order Comment: BAL c onsultIf > 15% lymphocytes - please send for flow. Performed By: #### B ALC ####[facility] (DEFAULT)[address] [facility] [place] [address] Bal comments Correlation with microbiology stains and cultures is recommended. Correlation with viral studies is recommended. Normal [facility] Comment on above: Order Comment: BAL c onsultIf > 15% lymphocytes - please send for flow. Performed By: #### B ALC ####[facility] (DEFAULT)[address] [place] [address] Bal Diff Quik Stain Quality Check Acceptable Normal [facility] Comment on above: Order Comment: BAL c onsultIf > 15% lymphocytes - please send for flow. Performed By: #### B ALC ####[facility] (DEFAULT)[address] [place] [address], [place] [address] Bal Reviewed By: Leonardo Peralta MD [facility] Comment on above: Order Comment: BAL c onsultIf > 15% lymphocytes - please send for flow. Performed By: #### B ALC ####[facility] (DEFAULT)[address] [place] [address] BKR BAL INTERPRETATION Cellular specimen comprised of alveolar macrophages and small lymphocytes. No definitive microorganisms are observed. Rare degenerating cells with changes suggestive of viral cytopathic effect are noted. Moderate degenerative changes. Normal [facility] Comment on above: Order Comment: BAL c onsultIf > 15% lymphocytes - please send for flow. Performed By: #### B ALC ####[facility] (DEFAULT)[address] [place] [address], [place] [address] BKR DX CODE Use Ordering Normal [facility] Comment on above: Order Comment: BAL c onsultIf > 15% lymphocytes - please send for flow. Performed By: #### B ALC ####[facility] (DEFAULT)[address] [place] [address] Eosinophils/100 WBC (Bld) 0 % Normal [facility] Comment on above: Order Comment: BAL c onsultIf > 15% lymphocytes - please send for flow. Performed By: #### B ALC ####[facility] (DEFAULT)[address] [place] [address] Lymphocytes/100 WBC (Bld) 49 % Normal [facility] Comment on above: Order Comment: BAL c onsultIf > 15% lymphocytes - please send for flow. Performed By: #### B ALC ####[facility] (DEFAULT)[address] [place] [address] Neutrophils/100 WBC (Bld) 18 % Normal [facility] Comment on above: Order Comment: BAL c onsultIf > 15% lymphocytes - please send for flow. Performed By: #### B ALC ####[facility] (DEFAULT)[address] [facility] [place] [address] ALVEOLAR MACROPHAGES 32 % Normal [facility] Comment on above: Order Comment: BAL c onsult for cell differential and pathologist review. Please do flow cytometry if > 12% lymphocytes Performed By: #### B ALC ####[facility] (DEFAULT)[address] [facility] [place] [address] Bal comments Correlation with microbiology stains and cultures is recommended. Normal [facility] Comment on above: Order Comment: BAL c onsult for cell differential and pathologist review. Please do flow cytometry if > 12% lymphocytes Performed By: #### B ALC ####[facility] (DEFAULT)[address] [facility] [place] [address] Bal Diff Quik Stain Quality Check Acceptable Normal [facility] Comment on above: Order Comment: BAL c onsult for cell differential and pathologist review. Please do flow cytometry if > 12% lymphocytes Performed By: #### B ALC ####[facility] (DEFAULT)[address] [facility] [place] [address] Bal Reviewed By: Leonardo Peralta MD [facility] Comment on above: Order Comment: BAL c onsult for cell differential and pathologist review. Please do flow cytometry if > 12% lymphocytes Performed By: #### B ALC ####[facility] (DEFAULT)[address] [place] [address] BKR BAL INTERPRETATION Cellular specimen comprised of alveolar macrophages and small lymphocytes. No definitive microorganisms are observed. Moderate degenerative changes. Normal [facility] Comment on above: Order Comment: BAL c onsult for cell differential and pathologist review. Please do flow cytometry if > 12% lymphocytes Performed By: #### B ALC ####[facility] (DEFAULT)[address] [place] [address] BKR DX CODE Use Ordering Normal [facility] Comment on above: Order Comment: BAL c onsult for cell differential and pathologist review. Please do flow cytometry if > 12% lymphocytes Performed By: #### B ALC ####[facility] (DEFAULT)[address] [place] [address] Eosinophils/100 WBC (Bld) 0 % Normal [facility] Comment on above: Order Comment: BAL c onsult for cell differential and pathologist review. Please do flow cytometry if > 12% lymphocytes Performed By: #### B ALC ####[facility] (DEFAULT)[address] [facility] [place] [address] Lymphocytes/100 WBC (Bld) 57 % Normal [facility] Comment on above: Order Comment: BAL c onsult for cell differential and pathologist review. Please do flow cytometry if > 12% lymphocytes Performed By: #### B ALC ####[facility] (DEFAULT)[address] [place] [address] Neutrophils/100 WBC (Bld) 11 % Normal [facility] Comment on above: Order Comment: BAL c onsult for cell differential and pathologist review. Please do flow cytometry if > 12% lymphocytes Performed By: #### B ALC ####[facility] (DEFAULT)[address] [place] [address] BRONCHOSCOPYon 09-02-2023 Radiology Study observation (narrative) [facility] Bacteria identified Cx Nom ( Bld)on 09-02-2023 Bacteria identified Cx Nom (Unsp spec) NO GROWTH DAY 5 OF 5 [facility] CBC,PLATELETSon 09-02-2023 Erythrocyte distribution width (RBC) [Ratio] 13.2 % 10.9 - 14.3 % [facility] Hematocrit (Bld) [Volume fraction] 39.9 % 39.6 - 48.8 % [facility] Hemoglobin (Bld) [Mass/Vol] 12.9 g/dL Low 13.4 - 16.8 g/dL [facility] Interpretation and review of laboratory results Abnormal [facility] MCH (RBC) [Entitic mass] 27.9 pg 26.1 - 33.3 pg [facility] MCHC (RBC) [Mass/Vol] 32.3 g/dL 31.9 - 36.5 g/dL [facility] MCV (RBC) [Entitic vol] 86.4 fL 79.0 - 94.5 fL [facility] Platelet mean volume (Bld) [Entitic vol] 9.5 fL 8.7 - 12.3 fL [facility] Platelets (Bld) [#/Vol] 210 10*3/uL 146 - 337 K/uL [facility] RBC (Bld) [#/Vol] 4.62 10*6/uL [facility] WBC (Bld) [#/Vol] 4.12 10*3/uL 3.73 - 10. 10 K/uL [facility] Hematocrit (Bld) [Volume fraction] 39.9 % Normal 39.6-48.8 [facility] Comment on above: Performed By: #### H [facility] ####[facility] (DEFAULT)[address] [place] [address] Hemoglobin (Bld) [Mass/Vol] 12.9 g/dL Low 13.4-16.8 [facility] Comment on above: Performed By: #### H [facility] ####[facility] (DEFAULT)[address] [place] [address] MCV (RBC) [Entitic vol] 86.4 fL Normal 79.0-94.5 [facility] Comment on above: Performed By: #### H EMOGC ####[facility] (DEFAULT)[address] [place] [address] Mean Cell Hgb 27.9 pg Normal 26.1-33.3 [facility] Comment on above: Performed By: #### H EMOGC ####[facility] (DEFAULT)[address] [place] [address] Mean Cell Hgb Conc 32.3 g/dL Normal 31.9-36.5 [facility] Comment on above: Performed By: #### H EMOGC ####[facility] (DEFAULT)[address] [place] [address] Platelet mean volume (Bld) [Entitic vol] 9.5 fL Normal 8.7-12.3 [facility] Comment on above: Performed By: #### H EMOGC ####[facility] (DEFAULT)[address] [place] [address] Platelets (Bld) [#/Vol] 210 10*3/uL Normal 146-337 [facility] Comment on above: Performed By: #### H EMOGC ####[facility] (DEFAULT)[address] [place] [address] RBC (Bld) [#/Vol] 4.62 10*6/uL Normal 4.38-5.83 [facility] Comment on above: Performed By: #### H EMOGC ####[facility] (DEFAULT)[address] [place] [address] RBC Distribution 13.2 % Normal 10.9-14.3 [facility] Comment on above: Performed By: #### H EMOGC ####[facility] (DEFAULT)[address] [place] [address] WBC (Bld) [#/Vol] 4.12 10*3/uL Normal 3.73-10.10 [facility] Comment on above: Performed By: #### H EMOGC ####[facility] (DEFAULT)[address] [place] [address] CHEM 7 (LYTES,BUN,CREA,GLUC) on 09-02-2023 Anion gap [Moles/Vol] 13 mmol/L 7 - 17 mmol/L [facility] Chloride [Moles/Vol] 105 mmol/L 98 - 10 8 mmol/L [facility] CO2 [Moles/Vol] 22 mmol/L 21 - 31 mmol/L [facility] Creatinine [Mass/Vol] 1.25 mg/dL 0.70 - 1.30 mg/dL [facility] eGFR, CKD-EPI, Male 69 - [facility]F [facility] Glucose [Mass/Vol] 105 mg/dL High 70 - 99 mg/dL [facility] Osmolality Calc [Osmolality] 287 [facility] Potassium [Moles/Vol] 4.3 mmol/L 3.5 - 5.0 mmol/L [facility] Sodium [Moles/Vol] 136 mmol/L 135 - 145 mmol/L [facility] Urea nitrogen [Mass/Vol] 16 mg/dL 7 - 25 mg/dL [facility] Urea nitrogen/Creatinine [Mass ratio] 13 mg/mg [facility] Anion gap [Moles/Vol] 13 mmol/L Normal 7-17 [facility] Comment on above: Performed By: #### C HM7, HFP, MGO ####[facility] (DEFAULT)[address] [place] [address] Chloride [Moles/Vol] 105 mmol/L Normal 98-108 [facility] Comment on above: Performed By: #### C HM7, HFP, MGO ####[facility] (DEFAULT)[address] [place] [address] CO2 [Moles/Vol] 22 mmol/L Normal 21-31 [facility] Comment on above: Performed By: #### C HM7, HFP, MGO ####[facility] (DEFAULT)[address] [place] [address] Creatinine [Mass/Vol] 1.25 mg/dL Normal 0.70-1.30 [facility] Comment on above: Performed By: #### C HM7, HFP, MGO ####[facility] (DEFAULT)[address] [place] [address] GFR/1.73 sq M.predicted among non-blacks MDRD (S/P/Bld) [Vol rate/Area] 69 mL/min/{1.73_m2} Normal >=60 [facility] Comment on above: Result Comment: Repo rted eGFR is based on the CKD-EPI 2020 equation using creatinine, age, and sex. Performed By: #### C HM7, HFP, MGO ####[facility] (DEFAULT)[address] [place] [address] Glucose [Mass/Vol] 105 mg/dL High 70-99 [facility] Comment on above: Performed By: #### C HM7, HFP, MGO ####[facility] (DEFAULT)[address] [place] [address] Osmolality [Osmolality] 287 mosm/kg Normal 278-305 [facility] Comment on above: Performed By: #### C HM7, HFP, MGO ####[facility] (DEFAULT)[address] [place] [address] Potassium [Moles/Vol] 4.3 mmol/L Normal 3.5-5.0 [facility] Comment on above: Performed By: #### C HM7, HFP, MGO ####[facility] (DEFAULT)[address] [place] [address] Sodium [Moles/Vol] 136 mmol/L Normal 135-145 [facility] Comment on above: Performed By: #### C HM7, HFP, MGO ####[facility] (DEFAULT)[address] [place] [address] Urea nitrogen [Mass/Vol] 16 mg/dL Normal 7-25 [facility] Comment on above: Performed By: #### C HM7, HFP, MGO ####[facility] (DEFAULT)[address] [facility] [place] [address] Urea nitrogen/Creatinine [Mass ratio] 13 mg/mg Normal [facility] Comment on above: Performed By: #### C HM7, HFP, MGO ####[facility] (DEFAULT)[address] [place] [address] CMV PCR,FLUIDS,URINE,EYE ETC on 09-02-2023 CMV by PCR Result Negative Normal Negative [facility] Comment on above: Result Comment: ---- ADDITIONAL INFORMATION This test was developed and its performance characteristicsdetermined by [facility] in a manner consistent with CLIArPrimordialirements. This test has not been cleared or approved by[facility] U.S. Food and Drug Administration.Test Performed by:[address] Director: Rosendo Bose M.D. Ph.D.; CLIA# [id number] Performed By: #### Y CMV ####[facility] (DEFAULT)[address] [place] [address], [place] [address] CMV BY PCR SOURCE BAL RML Normal [facility] Comment on above: Performed By: #### Y CMV ####[facility] (DEFAULT)[address] [place] [address], [place] [address] CMV by PCR Result Negative Normal Negative [facility] Comment on above: Result Comment: ---- ADDITIONAL INFORMATION This test was developed and its performance characteristicsdetermined by [facility] in a manner consistent with CLIArequirements. This test has not been cleared or approved bythe U.S. Food and Drug Administration.Test Performed by:[address] [address]wr Director: Rosendo Bose M.D. Ph.D.; CLIA# [id number] Performed By: #### Y CMV ####[facility] (DEFAULT)[address] [facility] [place] [address] CMV BY PCR SOURCE BAL LLL Normal [facility] Comment on above: Performed By: #### Y CMV ####U [facility] (DEFAULT)[address] [place] [address] CYTOLOGY, NON-GYNon 09-02-20 23 CYTOLOGIC DIAGNOSIS Normal [facility] Comment on above: Result Comment: A. B RONCHOALVEOLAR LAVAGE, LEFT LOWER LOBE (CYTOLOGY):FINAL DIAGNOSIS:No Malignant Cells Are IdentifiedHypocellular Specimen Performed By: #### N ONJONH ####[facility] (DEFAULT)[address] [place] [address] Case Report Normal [facility] Comment on above: Result Comment: Medi abhishek Cytology Report Case: [id number] Provider: Crow Diaz MD Collected: 09/02/2023 08:38 AMOrdering [facility] Received: 09/02/2023 10:44 AMPathologist: KENTON Caglepecimen: BRONCHOALVEOLAR LAVAGE, LLL BAL Performed By: #### N ONJOHNNA ####[facility] (DEFAULT)[address] [place] [address] Clinical History Renal transplant. Normal [facility] Comment on above: Performed By: #### N ONNILOFNA ####[facility] (DEFAULT)[address] [facility] [place] [address] Gross Description Normal [facility] Comment on above: Result Comment: LLL BAL1 ml hazy colorless fld unfixed1 TP slide Pap stainFor Immediate Release to Patient's MyChart? Yes Performed By: #### N ONGNNONFNA ####[facility] (DEFAULT)[address] [place] [address] FUNGUS CULTUREon 09-02-2023 Bacteria identified Cx Nom (Unsp spec) Normal [facility] Comment on above: Order Comment: Ident ification was performed on the MALDI-TOF mass spectrometer Turned On Digitalyper. This test was developed by [facility]. It has not been cleared or approved by the FDA. The laboratory is regulated under CLIA as qualified to perform high-complexity testing. This test is used for clinical purposes. It should not be regarded as investigational or for research. Result Comment: Grow [id number] Buhler Histoplasma capsulatum Performed By: #### F UN ####[facility] (DEFAULT)[address] [place] [address] Bacteria identified Cx Nom (Unsp spec) NO GROWTH DAY 28 OF 28 Normal [facility] Comment on above: Order Comment: BAL f ungal culture Performed By: #### F UN ####[facility] (DEFAULT)[address] [place] [address] HEPATIC FUNCTION PANELon Albumin [Mass/Vol] 3.2 g/dL Low 3.5 - 5.0 g/dL [facility] ALP [Catalytic activity/Vol] 107 U/L 32 - 126 U/L [facility] ALT [Catalytic activity/Vol] 20 U/L 10 - 52 U/L [facility] AST [Catalytic activity/Vol] 31 U/L 10 - 39 U/L [facility] Bilirubin [Mass/Vol] 1.0 mg/dL NINF - 1.5 mg/dL [facility] Bilirubin.direct [Mass/Vol] 0.3 mg/dL High NINF - 0.3 mg/dL [facility] Protein [Mass/Vol] 6.6 g/dL 6.4 - 8.3 g/dL [facility] Albumin [Mass/Vol] 3.2 g/dL Low 3.5-5.0 [facility] Comment on above: Performed By: #### C HM7, HFP, MGO ####[facility] (DEFAULT)[address] [place] [address] ALP [Catalytic activity/Vol] 107 U/L Normal 32-126 [facility] Comment on above: Performed By: #### C HM7, HFP, MGO ####[facility] (DEFAULT)[address] [place] [address] ALT [Catalytic activity/Vol] 20 U/L Normal 10-52 [facility] Comment on above: Performed By: #### C HM7, HFP, MGO ####[facility] (DEFAULT)[address] [place] [address] AST [Catalytic activity/Vol] 31 U/L Normal 10-39 [facility] Comment on above: Performed By: #### C HM7, HFP, MGO ####[facility] (DEFAULT)[address] [place] [address] Bilirubin [Mass/Vol] 1.0 mg/dL Normal <1.5 [facility] Comment on above: Performed By: #### C HM7, HFP, MGO ####[facility] (DEFAULT)[address] [place] [address] Bilirubin.indirect [Mass/Vol] 0.3 mg/dL High <0.3 [facility] Comment on above: Performed By: #### C HM7, HFP, MGO ####[facility] (DEFAULT)[address] [place] [address] Protein [Mass/Vol] 6.6 g/dL Normal 6.4-8.3 [facility] Comment on above: Performed By: #### C HM7, HFP, MGO ####[facility] (DEFAULT)[address] [place] [address] HISTOPLASMA ANTIGEN, FLUIDon 09-02-2023 FH SOURCE BAL RML Normal [facility] Comment on above: Performed By: #### Y FHST ####[facility] (DEFAULT)[address] [place] [address] Histo FLD interpretation Negative Normal [facility] Comment on above: Result Comment: ---- ADDITIONAL INFORMATION Reference interval: None DetectedReportable Range: Positive Results reported in ng/mL from0.20 ng/mL to 20.00 ng/mLPositive Results above 20.00 ng/mL are reported as 'Abovethe Limit of Quantification'Cross-reactions occur with Blastomyces spp., Coccidioidesspp., and Paracoccidioides brasiliensis.This test was developed and its performance characteristicsdetermined by [employer]. It has not beencleared or approved by the FDA; however, FDA clearance orapproval is not currently required for clinical use. Theresults are not intended to be used as the sole means forclinical diagnosis or patient management decisions.Test Performed by:[employer] [place] [address] [place] [address] Performed By: #### Y FHST ####[facility] (DEFAULT)[address] [place] [address], [place] [address] Histoplasma Antigen, FLUID Not detected Normal [facility] Comment on above: Performed By: #### Y FHST ####[facility] (DEFAULT)[address] [place] [address], [place] [address] HISTOPLASMA ANTIGEN,URINEon 09-02-2023 H. capsulatum Ag (U) [Mass/Vol] Not detected ng/mL [facility] H. capsulatum Ag IA Ql (U) Not detected Not Detected [facility] HISTOPLASMA CAPSULATUM/BLAST OMYCES SPECIES,PCR FLUIDon 09-02-2023 HISTO/BLASTO RESULT Negative Normal Not Applicable [facility] Comment on above: Result Comment: A [...] U.S. Food and Drug Administration.Test Performed by:[address] [address]Ywv Director: Rosendo Bose M.D. Ph.D.; CLIA# [id number] Performed By: #### Y HBRP ####[facility] (DEFAULT)[address] [place] [address] Source BAL RML Normal [facility] Comment on above: Performed By: #### Y HBRP ####[facility] (DEFAULT)[address] [place] [address] HIV 1 AND 2 ANTIBODIES/P24 A NTIGENOrdered By: Wilma Luque on 09-02-2023 HIV 1+2 Ab+HIV1 p24 Ag IA Ql Non-Reactive Non Reactive [facility] Interpretation and review of laboratory results Normal [facility] HIV 1 AND 2 ANTIBODIES/P24 A NTIGENon 09-02-2023 HIV-1/HIV-2 Ab With p24 Antigen Non-Reactive Normal Non Reactive [facility] Comment on above: Performed By: #### L [id number] ####[facility] (DEFAULT)[address] [place] [address] LEGIONELLA CULTUREon 023 Bacteria identified Cx Nom (Unsp spec) NO GROWTH DAY 7 OF 7 Normal [facility] Comment on above: Performed By: #### L EGN ####[facility] (DEFAULT)[address] [place] [address] Bacteria identified Cx Nom (Unsp spec) NO GROWTH DAY 7 OF 7 Normal [facility] Comment on above: Order Comment: BAL l egionella culture Performed By: #### L EGN ####[facility] (DEFAULT)[address] [place] [address] LEGIONELLA PCRon 09-02-2023 Legionella species, Culture BAL RML Normal [facility] Comment on above: Performed By: #### Y LEGRP ####[facility] (DEFAULT)[address] [place] [address] Legionella, pcr result Negative Normal Not Applicable [facility] Comment on above: Result Comment: ---- ADDITIONAL INFORMATION This test was developed and its performance characteristicsdetermined by [facility] in a manner consistent with CLIArequirements. This test has not been cleared or approved bythe U.S. Food and Drug Administration.Test Performed by:[address] Director: Rosendo Bose M.D. Ph.D.; CLIA# [id number] Performed By: #### Y LEGRP ####[facility] (DEFAULT)[address] [place] [address] LOWER RESPIRATORY CULTURE, B ACTERIALon 09-02-2023 Bacteria identified Cx Nom (Unsp spec) NO GROWTH DAY 2 OF 2 Normal [facility] Comment on above: Performed By: #### R ES ####[facility] (DEFAULT)[address] [place] [address] Microscopic observation Gram stain Nom (Unsp spec) Normal [facility] Comment on above: Result Comment: Cyto centrifuge preparationNeutrophils, RareRed Blood Cells PresentNo organisms seen Performed By: #### R ES ####[facility] (DEFAULT)[address] [place] [address] Bacteria identified Cx Nom (Unsp spec) NO GROWTH DAY 2 OF 2 Normal [facility] Comment on above: Order Comment: BAL b acterial respiratory culture Performed By: #### R ES ####[facility] (DEFAULT)[address] [place] [address] Microscopic observation Gram stain Nom (Unsp spec) Normal [facility] Comment on above: Order Comment: BAL b acterial respiratory culture Result Comment: Cyto centrifuge preparationNeutrophils, ModerateRed Blood Cells PresentNo organisms seen Performed By: #### R ES ####[facility] (DEFAULT)[address] [place] [address] MAGNESIUMon 09-02-2023 Interpretation and review of laboratory results Normal [facility] Magnesium [Mass/Vol] 1.7 mg/dL 1.6 - 2 .6 mg/dL [facility] Magnesium [Mass/Vol] 1.7 mg/dL Normal 1.6-2.6 [facility] Comment on above: Performed By: #### C HM7, HFP, MGO ####[facility] (DEFAULT)[address] [place] [address] No Panel Informationon 09-02 Interpretation and review of laboratory results Abnormal [facility] PNEUMOCYSTIS JIROVECI,PCRon 09-02-2023 PN Report Status DNR Normal [facility] Comment on above: Performed By: #### Y PNRP ####[facility] (DEFAULT)[address] [place] [address] PN Specimen Source BAL RML Normal [facility] Comment on above: Performed By: #### Y PNRP ####[facility] (DEFAULT)[address] [place] [address] Pneum jiroveci comment DNR Normal [facility] Comment on above: Performed By: #### Y PNRP ####[facility] (DEFAULT)[address] [place] [address] Pneumocystis jiroveci,PCR result Negative Normal Not Applicable [facility] Comment on above: Result Comment: ---- ADDITIONAL INFORMATION This test was developed and its performance characteristicsdetermined by [facility] in a manner consistent with CLIArequirements. This test has not been cleared or approved bythe U.S. Food and Drug Administration.Test Performed by:[place] [id number] Director: Rosendo Bose M.D. Ph.D.; CLIA# [id number] Performed By: #### Y PNRP ####[facility] (DEFAULT)[address] [place] [address] PN Report Status DNR Normal [facility] Comment on above: Performed By: #### Y PNRP ####[facility] (DEFAULT)[address] [place] [address] PN Specimen Source BAL LLL Normal [facility] Comment on above: Performed By: #### Y PNRP ####[facility] (DEFAULT)[address] [place] [address], [place] [address] Pneum jiroveci comment DNR Normal [facility] Comment on above: Performed By: #### Y PNRP ####[facility] (DEFAULT)[address] [place] [address], [place] [address] Pneumocystis jiroveci,PCR result Negative Normal Not Applicable [facility] Comment on above: Result Comment: ---- ADDITIONAL INFORMATION This test was developed and its performance characteristicsdetermined by [facility] in a manner consistent with CLIArequirements. This test has not been cleared or approved bythe U.S. Food and Drug Administration.Test Performed by:[address] [address]Ouh Director: Rosendo Bose M.D. Ph.D.; CLIA# [id number] Performed By: #### Y PNRP ####[facility] (DEFAULT)[address] [place] [address] TACROLIMUS LEVEL, TROUGH (NC E DRUG LEVEL)on 09-02-2023 Interpretation and review of laboratory results Normal [facility] Tacrolimus (Bld) [Mass/Vol] 4.2 ng/mL [facility] Tacrolimus, Trough 4.2 ng/mL Normal Bone Susana ow Transplant: 4.0-12.0, Therapeutic: 5.0-15.0 [facility] Comment on above: Order Comment: Pleas e draw at specified interval PRIOR to dose. Do not hold dose to wait for level. Specimens batched twice per day, (M-F) and once per day weekendsMethod performed is a chemiluminescent microparticle immunoasssay on the [employer] i2000.The range is based on experience at [facility] and users should be aware that target concentrations vary widely depending on concomitant therapy, time post-transplant, and desired degree of immunosuppression. Performed By: #### T ACRO ####[facility] (DEFAULT)[address] [place] [address] CBC,PLATELETSon 09-01-2023 Erythrocyte distribution width (RBC) [Ratio] 13.4 % 10.9 - 14.3 % [facility] Hematocrit (Bld) [Volume fraction] 38.9 % Low 39.6 - 48.8 % [facility] Hemoglobin (Bld) [Mass/Vol] 12.7 g/dL Low 13.4 - 16.8 g/dL [facility] Interpretation and review of laboratory results Abnormal [facility] MCH (RBC) [Entitic mass] 27.6 pg 26.1 - 33.3 pg [facility] MCHC (RBC) [Mass/Vol] 32.6 g/dL 31.9 - 36.5 g/dL [facility] MCV (RBC) [Entitic vol] 84.6 fL 79.0 - 94.5 fL [facility] Platelet mean volume (Bld) [Entitic vol] 9.4 fL 8.7 - 12.3 fL [facility] Platelets (Bld) [#/Vol] 209 10*3/uL 146 - 337 K/uL [facility] RBC (Bld) [#/Vol] 4.60 10*6/uL [facility] WBC (Bld) [#/Vol] 4.41 10*3/uL 3.73 - 10. 10 K/uL [facility] Hematocrit (Bld) [Volume fraction] 38.9 % Low 39.6-48.8 [facility] Comment on above: Performed By: #### H EMO ####[facility] (DEFAULT)[address] [place] [address] Hemoglobin (Bld) [Mass/Vol] 12.7 g/dL Low 13.4-16.8 [facility] Comment on above: Performed By: #### H EMO ####[facility] (DEFAULT)[address] [place] [address] MCV (RBC) [Entitic vol] 84.6 fL Normal 79.0-94.5 [facility] Comment on above: Performed By: #### H EMOGC ####[facility] (DEFAULT)[address] [place] [address] Mean Cell Hgb 27.6 pg Normal 26.1-33.3 [facility] Comment on above: Performed By: #### H EMO ####[facility] (DEFAULT)[address] [place] [address] Mean Cell Hgb Conc 32.6 g/dL Normal 31.9-36.5 [facility] Comment on above: Performed By: #### H EMOGC ####[facility] (DEFAULT)[address] [place] [address] Platelet mean volume (Bld) [Entitic vol] 9.4 fL Normal 8.7-12.3 [facility] Comment on above: Performed By: #### H [facility] ####[facility] (DEFAULT)[address] [place] [address] Platelets (Bld) [#/Vol] 209 10*3/uL Normal 146-337 [facility] Comment on above: Performed By: #### H EMO ####[facility] (DEFAULT)[address] [place] [address] RBC (Bld) [#/Vol] 4.60 10*6/uL Normal 4.38-5.83 [facility] Comment on above: Performed By: #### H [facility] ####[facility] (DEFAULT)[address] [place] [address] RBC Distribution 13.4 % Normal 10.9-14.3 [facility] Comment on above: Performed By: #### H [facility] ####[facility] (DEFAULT)[address] [place] [address] WBC (Bld) [#/Vol] 4.41 10*3/uL Normal 3.73-10.10 [facility] Comment on above: Performed By: #### H [facility] ####[facility] (DEFAULT)[address] [place] [address] CHEM 7 (LYTES,BUN,CREA,GLUC) on 09-01-2023 Anion gap [Moles/Vol] 14 mmol/L 7 - 17 mmol/L [facility] Chloride [Moles/Vol] 103 mmol/L 98 - 10 8 mmol/L [facility] CO2 [Moles/Vol] 21 mmol/L 21 - 31 mmol/L [facility] Creatinine [Mass/Vol] 1.16 mg/dL 0.70 - 1.30 mg/dL [facility] eGFR, CKD-EPI, Male 76 - PINF [facility] Glucose [Mass/Vol] 117 mg/dL High 70 - 99 mg/dL [facility] Osmolality Calc [Osmolality] 285 [facility] Potassium [Moles/Vol] 4.2 mmol/L 3.5 - 5.0 mmol/L [facility] Sodium [Moles/Vol] 134 mmol/L Low 135 - 145 mmol/L [facility] Urea nitrogen [Mass/Vol] 18 mg/dL 7 - 25 mg/dL [facility] Urea nitrogen/Creatinine [Mass ratio] 16 mg/mg [facility] Anion gap [Moles/Vol] 14 mmol/L Normal 7-17 [facility] Comment on above: Performed By: #### H ANTWAN MGHELEN MercadoM7 ####[facility] (DEFAULT)[address] [place] [address] Chloride [Moles/Vol] 103 mmol/L Normal 98-108 [facility] Comment on above: Performed By: #### H ANTWAN MGNATHANIEL Mercado ####[facility] (DEFAULT)[address] [place] [address] CO2 [Moles/Vol] 21 mmol/L Normal 21-31 [facility] Comment on above: Performed By: #### H DOMENICA MONCADA CHM7 ####[facility] (DEFAULT)[address] [place] [address] Creatinine [Mass/Vol] 1.16 mg/dL Normal 0.70-1.30 [facility] Comment on above: Performed By: #### H ANTWAN MGO CHM7 ####[facility] (DEFAULT)[address] [place] [address] GFR/1.73 sq M.predicted among non-blacks MDRD (S/P/Bld) [Vol rate/Area] 76 mL/min/{1.73_m2} Normal >=60 [facility] Comment on above: Result Comment: Repo rted eGFR is based on the CKD-EPI 2020 equation using creatinine, age, and sex. Performed By: #### H ANTWAN MGOTJ7 ####[facility] (DEFAULT)[address] [place] [address] Glucose [Mass/Vol] 117 mg/dL High 70-99 [facility] Comment on above: Performed By: #### H ANTWAN MGO CHM7 ####[facility] (DEFAULT)[address] [place] [address] Osmolality [Osmolality] 285 mosm/kg Normal 278-305 [facility] Comment on above: Performed By: #### H ANTWAN MGO, CHM7 ####[facility] (DEFAULT)[address] [place] [address] Potassium [Moles/Vol] 4.2 mmol/L Normal 3.5-5.0 [facility] Comment on above: Performed By: #### H ANTWAN MGO, CHM7 ####[facility] (DEFAULT)[address] [place] [address] Sodium [Moles/Vol] 134 mmol/L Low 135-145 [facility] Comment on above: Performed By: #### H ANTWAN MGO, CHM7 ####[facility] (DEFAULT)[address] [place] [address] Urea nitrogen [Mass/Vol] 18 mg/dL Normal 7-25 [facility] Comment on above: Performed By: #### Lydia MONCADA MGO, CHM7 ####[facility] (DEFAULT)[address] [place] [address] Urea nitrogen/Creatinine [Mass ratio] 16 mg/mg Normal [facility] Comment on above: Performed By: #### Lydia MONCADA MGO, CHM7 ####[facility] (DEFAULT)[address] [place] [address] CRYPTOCOCCAL ANTIGENon 09-01 Cryptococcus sp Ag Ql (S) Negative Negative [facility] Interpretation and review of laboratory results Normal [facility] Cryptococcus Antigen,Serum Negative Normal Negative [facility] Comment on above: Performed By: #### C RAG ####[facility] (DEFAULT)[address] [place] [address] HEPATIC FUNCTION PANELon Albumin [Mass/Vol] 3.3 g/dL Low 3.5 - 5.0 g/dL [facility] ALP [Catalytic activity/Vol] 112 U/L 32 - 126 U/L [facility] ALT [Catalytic activity/Vol] 21 U/L 10 - 52 U/L [facility] AST [Catalytic activity/Vol] 29 U/L 10 - 39 U/L [facility] Bilirubin [Mass/Vol] 1.0 mg/dL NINF - 1.5 mg/dL [facility] Bilirubin.direct [Mass/Vol] 0.2 mg/dL NINF - 0.3 mg/dL [facility] Protein [Mass/Vol] 6.8 g/dL 6.4 - 8.3 g/dL [facility] Albumin [Mass/Vol] 3.3 g/dL Low 3.5-5.0 [facility] Comment on above: Performed By: #### H DOMENICA MONCADA CHM7 ####[facility] (DEFAULT)[address] [place] [address] ALP [Catalytic activity/Vol] 112 U/L Normal 32-126 [facility] Comment on above: Performed By: #### H DOMENICA MONCADA CHM7 ####[facility] (DEFAULT)[address] [place] [address] ALT [Catalytic activity/Vol] 21 U/L Normal 10-52 [facility] Comment on above: Performed By: #### H DOMENICA MONCADA CHM7 ####[facility] (DEFAULT)[address] [place] [address] AST [Catalytic activity/Vol] 29 U/L Normal 10-39 [facility] Comment on above: Performed By: #### H DOMENICA MONCADA CHM7 ####[facility] (DEFAULT)[address] [place] [address] Bilirubin [Mass/Vol] 1.0 mg/dL Normal <1.5 [facility] Comment on above: Performed By: #### H DOMENICA MONCADA CHM7 ####[facility] (DEFAULT)[address] [place] [address] Bilirubin.indirect [Mass/Vol] 0.2 mg/dL Normal <0.3 [facility] Comment on above: Performed By: #### H DOMENICA MONCADA CHM7 ####[facility] (DEFAULT)[address] [place] [address] Protein [Mass/Vol] 6.8 g/dL Normal 6.4-8.3 [facility] Comment on above: Performed By: #### H DOMENICA MONCADA CHM7 ####[facility] (DEFAULT)[address] [place] [address] L. pneumophila 1 Ag IA Ql (U )Ordered By: Carolin Miles on 09-01-2023 Interpretation and review of laboratory results Normal [facility] LEGIONELLA URINARY AGOrdered By: Carolin Miles on 09-01-2023 L. pneumophila 1 Ag IA Ql (U) Negative Negative [facility] MAGNESIUMon 09-01-2023 Interpretation and review of laboratory results Normal [facility] Magnesium [Mass/Vol] 1.6 mg/dL 1.6 - 2 .6 mg/dL [facility] Magnesium [Mass/Vol] 1.6 mg/dL Normal 1.6-2.6 [facility] Comment on above: Performed By: #### H DOMENICA MONCADA CHM7 ####[facility] (DEFAULT)[address] [place] [address] No Panel Informationon 09-01 Interpretation and review of laboratory results Abnormal [facility] PARVOVIRUS (B19) DNA, PCR, B Jenise 09-01-2023 PARVOVIRUS B19 BY RAPID PCR Not detected Normal Not Detected [facility] Comment on above: Result Comment: [...] and its analyticalperformance characteristics have been determinedby [employer], [place].It has not been cleared or approved by the FDA. Thisassay has been validated pursuant to the CLIAregulations and is used for clinical purposes.Test Performed at:[facility] [address] [id number] Benavides M.D., Ph.D.,Director of Laboratories Performed By: #### Y PRVP ####[facility] (DEFAULT)[address] [place] [address] [place] SPEC SOURCE Whole Blood Normal [facility] Comment on above: Performed By: #### Y PRVP ####[facility] (DEFAULT)[address] [place] [address] ASPERGILLUS (GALACTOMANNAN), ANTIGENon 08-31-2023 Aspergillus Antigen <0.500 Normal <0.5 [facility] Comment on above: Result Comment: ---- ADDITIONAL INFORMATION This is a qualitative test and the resulted index value isnot indicative of disease severity. Serial testing isrecommended for patients at high risk for invasiveaspergillosis.This assay was performed using the FDA-cleared [employer]Platelia Aspergillus Galactomannan EIA.Test Performed by:[address] [address]Fdl Director: Rosendo Bose M.D. Ph.D.; CLIA# [id number] Performed By: #### Y ASP ####[facility] (DEFAULT)[address] [place] [address] CBC,PLATELETSon 08-31-2023 Erythrocyte distribution width (RBC) [Ratio] 13.3 % 10.9 - 14.3 % [facility] Hematocrit (Bld) [Volume fraction] 39.4 % Low 39.6 - 48.8 % [facility] Hemoglobin (Bld) [Mass/Vol] 12.8 g/dL Low 13.4 - 16.8 g/dL [facility] Interpretation and review of laboratory results Abnormal [facility] MCH (RBC) [Entitic mass] 27.6 pg 26.1 - 33.3 pg [facility] MCHC (RBC) [Mass/Vol] 32.5 g/dL 31.9 - 36.5 g/dL [facility] MCV (RBC) [Entitic vol] 85.1 fL 79.0 - 94.5 fL [facility] Platelet mean volume (Bld) [Entitic vol] 9.6 fL 8.7 - 12.3 fL [facility] Platelets (Bld) [#/Vol] 228 10*3/uL 146 - 337 K/uL [facility] RBC (Bld) [#/Vol] 4.63 10*6/uL [facility] WBC (Bld) [#/Vol] 4.77 10*3/uL 3.73 - 10. 10 K/uL [facility] Hematocrit (Bld) [Volume fraction] 39.4 % Low 39.6-48.8 [facility] Comment on above: Performed By: #### H [facility] ####[facility] (DEFAULT)[address] [place] [address] Hemoglobin (Bld) [Mass/Vol] 12.8 g/dL Low 13.4-16.8 [facility] Comment on above: Performed By: #### H [facility] ####[facility] (DEFAULT)[address] [place] [address] MCV (RBC) [Entitic vol] 85.1 fL Normal 79.0-94.5 [facility] Comment on above: Performed By: #### H EMOGC ####[facility] (DEFAULT)[address] [place] [address] Mean Cell Hgb 27.6 pg Normal 26.1-33.3 [facility] Comment on above: Performed By: #### H EMOGC ####[facility] (DEFAULT)[address] [place] [address] Mean Cell Hgb Conc 32.5 g/dL Normal 31.9-36.5 [facility] Comment on above: Performed By: #### H EMOGC ####[facility] (DEFAULT)[address] [place] [address] Platelet mean volume (Bld) [Entitic vol] 9.6 fL Normal 8.7-12.3 [facility] Comment on above: Performed By: #### H EMOGC ####[facility] (DEFAULT)[address] [place] [address] Platelets (Bld) [#/Vol] 228 10*3/uL Normal 146-337 [facility] Comment on above: Performed By: #### H EMOGC ####[facility] (DEFAULT)[address] [place] [address] RBC (Bld) [#/Vol] 4.63 10*6/uL Normal 4.38-5.83 [facility] Comment on above: Performed By: #### H EMOGC ####[facility] (DEFAULT)[address] [place] [address] RBC Distribution 13.3 % Normal 10.9-14.3 [facility] Comment on above: Performed By: #### H EMOGC ####[facility] (DEFAULT)[address] [place] [address] WBC (Bld) [#/Vol] 4.77 10*3/uL Normal 3.73-10.10 [facility] Comment on above: Performed By: #### H [facility] ####[facility] (DEFAULT)[address] [place] [address] CHEM 7 (LYTES,BUN,CREA,GLUC) on 08-31-2023 Anion gap [Moles/Vol] 13 mmol/L 7 - 17 mmol/L [facility] Chloride [Moles/Vol] 102 mmol/L 98 - 10 8 mmol/L [facility] CO2 [Moles/Vol] 23 mmol/L 21 - 31 mmol/L [facility] Creatinine [Mass/Vol] 1.37 mg/dL High 0.70 - 1.30 mg/dL [facility] eGFR, CKD-EPI, Male 62 - PINF [facility] Glucose [Mass/Vol] 112 mg/dL High 70 - 99 mg/dL [facility] Osmolality Calc [Osmolality] 284 [facility] Potassium [Moles/Vol] 4.4 mmol/L 3.5 - 5.0 mmol/L [facility] Sodium [Moles/Vol] 134 mmol/L Low 135 - 145 mmol/L [facility] Urea nitrogen [Mass/Vol] 16 mg/dL 7 - 25 mg/dL [facility] Urea nitrogen/Creatinine [Mass ratio] 12 mg/mg [facility] Anion gap [Moles/Vol] 13 mmol/L Normal 7-17 [facility] Comment on above: Performed By: #### M TAVO BLOOM, FERROBERT, PROCAL, CHM7 ####[facility] (DEFAULT)[address] [place] [address] Chloride [Moles/Vol] 102 mmol/L Normal 98-108 [facility] Comment on above: Performed By: #### M MERLE HFP, FERIB, PROCAL, CHM7 ####[facility] (DEFAULT)[address] [place] [address] CO2 [Moles/Vol] 23 mmol/L Normal 21-31 [facility] Comment on above: Performed By: #### M GO, HFP, FERIB, PROCAL, CHM7 ####[facility] (DEFAULT)[address] [place] [address] Creatinine [Mass/Vol] 1.37 mg/dL High 0.70-1.30 [facility] Comment on above: Performed By: #### M GO, HFP, FERIB, PROCAL, CHM7 ####[facility] (DEFAULT)[address] [place] [address] GFR/1.73 sq M.predicted among non-blacks MDRD (S/P/Bld) [Vol rate/Area] 62 mL/min/{1.73_m2} Normal >=60 [facility] Comment on above: Result Comment: Repo rted eGFR is based on the CKD-EPI 2020 equation using creatinine, age, and sex. Performed By: #### M GO, HFP, FERIB, PROCAL, CHM7 ####[facility] (DEFAULT)[address] [place] [address] Glucose [Mass/Vol] 112 mg/dL High 70-99 [facility] Comment on above: Performed By: #### M GO, HFP, FERIB, PROCAL, CHM7 ####[facility] (DEFAULT)[address] [place] [address] Osmolality [Osmolality] 284 mosm/kg Normal 278-305 [facility] Comment on above: Performed By: #### M GO, HFP, FERIB, PROCAL, CHM7 ####[facility] (DEFAULT)[address] [place] [address] Potassium [Moles/Vol] 4.4 mmol/L Normal 3.5-5.0 [facility] Comment on above: Performed By: #### M GO, HFP, FERIB, PROCAL, CHM7 ####[facility] (DEFAULT)[address] [place] [address] Sodium [Moles/Vol] 134 mmol/L Low 135-145 [facility] Comment on above: Performed By: #### M GO, HFP, FERIB, PROCAL, CHM7 ####[facility] (DEFAULT)[address] [place] [address] Urea nitrogen [Mass/Vol] 16 mg/dL Normal 7-25 [facility] Comment on above: Performed By: #### M GO, HFP, FERIB, PROCAL, CHM7 ####[facility] (DEFAULT)[address] [place] [address] Urea nitrogen/Creatinine [Mass ratio] 12 mg/mg Normal [facility] Comment on above: Performed By: #### M GO, HFP, FERIB, PROCAL, CHM7 ####[facility] (DEFAULT)[address] [place] [address] CT ABDOMEN/PELVIS WITHOUT CO NTRASTon 08-31-2023 CT ABDOMEN/PELVIS WITHOUT CONTRAST Normal [facility] CT Abdomen and Pelvis WO con traston 08-31-2023 RADIOLOGY RADIOLOGY [facility] Radiology Study observation (narrative) [facility] CT Abdomen and Pelvis WO con trastOrdered By: Chavez Larkin on 08-31-2023 [facility] Work Phone: CT CHEST WITHOUT CONTRASTon 08-31-2023 CT CHEST WITHOUT CONTRAST Normal [facility] CT Chest WO contraston 08-31 RADIOLOGY RADIOLOGY [facility] Radiology Study observation (narrative) [facility] CT Chest WO contrastOrdered By: Daisha Patterson on 08-31-2023 [facility] Work Phone: FERRITINon 08-31-2023 Ferritin [Mass/Vol] 409.0 ng/mL High 10.5 - 3 07.3 ng/mL [facility] Interpretation and review of laboratory results Abnormal [facility] Ferritin [Mass/Vol] 409.0 ng/mL High 10.5-307.3 [facility] Comment on above: Performed By: #### M MERLE HFP, FERIB, PROCAL, CHM7 ####[facility] (DEFAULT)[address] [place] [address] HEPATIC FUNCTION PANELon Albumin [Mass/Vol] 3.3 g/dL Low 3.5 - 5.0 g/dL [facility] ALP [Catalytic activity/Vol] 113 U/L 32 - 126 U/L [facility] ALT [Catalytic activity/Vol] 25 U/L 10 - 52 U/L [facility] AST [Catalytic activity/Vol] 31 U/L 10 - 39 U/L [facility] Bilirubin [Mass/Vol] 1.1 mg/dL NINF - 1.5 mg/dL [facility] Bilirubin.direct [Mass/Vol] 0.3 mg/dL High NINF - 0.3 mg/dL [facility] Protein [Mass/Vol] 7.0 g/dL 6.4 - 8.3 g/dL [facility] Albumin [Mass/Vol] 3.3 g/dL Low 3.5-5.0 [facility] Comment on above: Performed By: #### M EMRLE HFP, FERIB, PROCAL, CHM7 ####[facility] (DEFAULT)[address] [place] [address] ALP [Catalytic activity/Vol] 113 U/L Normal 32-126 [facility] Comment on above: Performed By: #### M MERLE HFP, FERIB, PROCAL, CHM7 ####[facility] (DEFAULT)[address] [place] [address] ALT [Catalytic activity/Vol] 25 U/L Normal 10-52 [facility] Comment on above: Performed By: #### M GO, HFP, FERIB, PROCAL, CHM7 ####[facility] (DEFAULT)[address] [place] [address] AST [Catalytic activity/Vol] 31 U/L Normal 10-39 [facility] Comment on above: Performed By: #### M GO, HFP, FERIB, PROCAL, CHM7 ####[facility] (DEFAULT)[address] [place] [address] Bilirubin [Mass/Vol] 1.1 mg/dL Normal <1.5 [facility] Comment on above: Performed By: #### M GO, HFP, FERIB, PROCAL, CHM7 ####[facility] (DEFAULT)[address] [place] [address] Bilirubin.indirect [Mass/Vol] 0.3 mg/dL High <0.3 [facility] Comment on above: Performed By: #### M GO, HFP, FERIB, PROCAL, CHM7 ####[facility] (DEFAULT)[address] [place] [address] Protein [Mass/Vol] 7.0 g/dL Normal 6.4-8.3 [facility] Comment on above: Performed By: #### M GO, HFP, FERIB, PROCAL, CHM7 ####[facility] (DEFAULT)[address] [place] [address] LEGIONELLA URINARY AGon 10- Legionella Urinary Antigen Negative Normal Negative [facility] [facility] Comment on above: Performed By: #### L EGION ####[facility] (DEFAULT)[address] [place] [address] MAGNESIUMon 08-31-2023 Interpretation and review of laboratory results Normal [facility] Magnesium [Mass/Vol] 1.7 mg/dL 1.6 - 2 .6 mg/dL [facility] Magnesium [Mass/Vol] 1.7 mg/dL Normal 1.6-2.6 [facility] Comment on above: Performed By: #### M MERLE HFP, FERIB, PROCAL, CHM7 ####[facility] (DEFAULT)[address] [place] [address] No Panel Informationon 08-31 Interpretation and review of laboratory results Abnormal [facility] PROCALCITONINon 08-31-2023 Interpretation and review of laboratory results Normal [facility] Procalcitonin [Mass/Vol] 0.23 ng/mL NINF - 0.50 ng/mL [facility] Procalcitonin 0.23 ng/mL Normal <0.50 [facility] Comment on above: Result Comment: Proc [...] and trend procalcitonin in various clinical settings. [email or web address]?[email or web address]=/[email or web address]/[email or web address]/[email or web address] [email or web address]&action=[email or web address] common cutoffs associated with bacterial infections are as follows.Respiratory tract infections: >0.25 ng/mLSepsis/septic shock: >0.5 ng/mLProcalcitonin should not be used alone as a diagnostic tool, however. All procalcitonin results should be interpreted in association with the patients clinical condition and all laboratory findings. Performed By: #### M MERLE, HFP, FERIB, PROCAL, CHM7 ####[facility] (DEFAULT)[address] [place] [address] TACROLIMUS LEVEL, TROUGH (NC E DRUG LEVEL)Ordered By: Yanira Marcum on 08-31-2023 Interpretation and review of laboratory results Normal [facility] Tacrolimus (Bld) [Mass/Vol] 5.9 ng/mL [facility] TACROLIMUS LEVEL, TROUGH (NC E DRUG LEVEL)on 08-31-2023 Tacrolimus, Trough 5.9 ng/mL Normal [facility] Susana ow Transplant: 4.0-12.0, Therapeutic: 5.0-15.0 [facility] Comment on above: Order Comment: Pleas e draw at specified interval PRIOR to dose. Do not hold dose to wait for level. Specimens batched twice per day, (M-F) and once per day weekendsMethod performed is a chemiluminescent microparticle immunoasssay on the [employer] i2000.The range is based on experience at [facility] and users should be aware that target concentrations vary widely depending on concomitant therapy, time post-transplant, and desired degree of immunosuppression. Performed By: #### T ACRO ####[facility] (DEFAULT)[address] [place] [address] URINE CULTUREOrdered By: Jorge crowe Held on 08-31-2023 Bacteria identified Cx Nom (Unsp spec) No Growth [facility] DARYL AURIS SCREEN BY PCRO rdered By: Mynor Alejandro on 08-30-2023 Darly auris Screen by PCR Not detected Not Detected [facility] Interpretation and review of laboratory results Normal [facility] CBC,PLATELETSon 08-30-2023 Erythrocyte distribution width (RBC) [Ratio] 13.3 % 10.9 - 14.3 % [facility] Hematocrit (Bld) [Volume fraction] 41.3 % 39.6 - 48.8 % [facility] Hemoglobin (Bld) [Mass/Vol] 13.2 g/dL Low 13.4 - 16.8 g/dL [facility] Interpretation and review of laboratory results Abnormal [facility] MCH (RBC) [Entitic mass] 27.3 pg 26.1 - 33.3 pg [facility] MCHC (RBC) [Mass/Vol] 32.0 g/dL 31.9 - 36.5 g/dL [facility] MCV (RBC) [Entitic vol] 85.5 fL 79.0 - 94.5 fL [facility] Platelet mean volume (Bld) [Entitic vol] 9.2 fL 8.7 - 12.3 fL [facility] Platelets (Bld) [#/Vol] 235 10*3/uL 146 - 337 K/uL [facility] RBC (Bld) [#/Vol] 4.83 10*6/uL [facility] WBC (Bld) [#/Vol] 4.96 10*3/uL 3.73 - 10. 10 K/uL [facility] Hematocrit (Bld) [Volume fraction] 41.3 % Normal 39.6-48.8 [facility] Comment on above: Performed By: #### H EMO ####[facility] (DEFAULT)[address] [place] [address] Hemoglobin (Bld) [Mass/Vol] 13.2 g/dL Low 13.4-16.8 [facility] Comment on above: Performed By: #### H EMO ####[facility] (DEFAULT)[address] [place] [address] MCV (RBC) [Entitic vol] 85.5 fL Normal 79.0-94.5 [facility] Comment on above: Performed By: #### H EMOGC ####[facility] (DEFAULT)[address] [place] [address] Mean Cell Hgb 27.3 pg Normal 26.1-33.3 [facility] Comment on above: Performed By: #### H EMOGC ####[facility] (DEFAULT)[address] [place] [address] Mean Cell Hgb Conc 32.0 g/dL Normal 31.9-36.5 [facility] Comment on above: Performed By: #### H EMOGC ####[facility] (DEFAULT)[address] [place] [address] Platelet mean volume (Bld) [Entitic vol] 9.2 fL Normal 8.7-12.3 [facility] Comment on above: Performed By: #### H EMO ####[facility] (DEFAULT)[address] [facility] [place] [address] Platelets (Bld) [#/Vol] 235 10*3/uL Normal 146-337 [facility] Comment on above: Performed By: #### H EMO ####[facility] (DEFAULT)[address] [place] [address] RBC (Bld) [#/Vol] 4.83 10*6/uL Normal 4.38-5.83 [facility] Comment on above: Performed By: #### H EMO ####[facility] (DEFAULT)[address] [facility] [place] [address] RBC Distribution 13.3 % Normal 10.9-14.3 [facility] Comment on above: Performed By: #### H EMO ####[facility] (DEFAULT)[address] [place] [place] [address] WBC (Bld) [#/Vol] 4.96 10*3/uL Normal 3.73-10.10 [facility] Comment on above: Performed By: #### H [facility] ####[facility] (DEFAULT)[address] [place] [address] CHEM 7 (LYTES,BUN,CREA,GLUC) on 08-30-2023 Anion gap [Moles/Vol] 14 mmol/L 7 - 17 mmol/L [facility] Chloride [Moles/Vol] 102 mmol/L 98 - 10 8 mmol/L [facility] CO2 [Moles/Vol] 20 mmol/L Low 21 - 31 mmol/L [facility] Creatinine [Mass/Vol] 1.56 mg/dL High 0.70 - 1.30 mg/dL [facility] eGFR, CKD-EPI, Male 53 Low - PINF [facility] Glucose [Mass/Vol] 123 mg/dL High 70 - 99 mg/dL [facility] Osmolality Calc [Osmolality] 281 [facility] Potassium [Moles/Vol] 4.3 mmol/L 3.5 - 5.0 mmol/L [facility] Sodium [Moles/Vol] 132 mmol/L Low 135 - 145 mmol/L [facility] Urea nitrogen [Mass/Vol] 16 mg/dL 7 - 25 mg/dL [facility] Urea nitrogen/Creatinine [Mass ratio] 10 mg/mg [facility] Anion gap [Moles/Vol] 14 mmol/L Normal 7-17 [facility] Comment on above: Performed By: #### NATHANIEL RAMÍREZ, HFP ####[facility] (DEFAULT)[address] [facility] [place] [address] Chloride [Moles/Vol] 102 mmol/L Normal 98-108 [facility] Comment on above: Performed By: #### NATHANIEL RAMÍREZ, HFP ####[facility] (DEFAULT)[address] [facility] [place] [address] CO2 [Moles/Vol] 20 mmol/L Low 21-31 [facility] Comment on above: Performed By: #### NATHANIEL RAMÍREZ, HFP ####[facility] (DEFAULT)[address] [facility] [place] [address] Creatinine [Mass/Vol] 1.56 mg/dL High 0.70-1.30 [facility] Comment on above: Performed By: #### NATHANIEL RAMÍREZ, HFP ####[facility] (DEFAULT)[address] [facility] [place] [address] GFR/1.73 sq M.predicted among non-blacks MDRD (S/P/Bld) [Vol rate/Area] 53 mL/min/{1.73_m2} Low >=60 [facility] Comment on above: Result Comment: Repo rted eGFR is based on the CKD-EPI 2020 equation using creatinine, age, and sex. Performed By: #### NATHANIEL RAMÍREZ, HFP ####[facility] (DEFAULT)[address] [place] [address] Glucose [Mass/Vol] 123 mg/dL High 70-99 [facility] Comment on above: Performed By: #### NATHANIEL RAMÍREZ, HFP ####[facility] (DEFAULT)[address] [place] [address] Osmolality [Osmolality] 281 mosm/kg Normal 278-305 [facility] Comment on above: Performed By: #### NATHANIEL RAMÍREZ, HFP ####[facility] (DEFAULT)[address] [place] [address] Potassium [Moles/Vol] 4.3 mmol/L Normal 3.5-5.0 [facility] Comment on above: Performed By: #### NATHANIEL RAMÍREZ, HFP ####[facility] (DEFAULT)[address] [place] [address] Sodium [Moles/Vol] 132 mmol/L Low 135-145 [facility] Comment on above: Performed By: #### NATHANIEL RAMÍREZ, HFP ####[facility] (DEFAULT)[address] [place] [address] Urea nitrogen [Mass/Vol] 16 mg/dL Normal 7-25 [facility] Comment on above: Performed By: #### NATHANIEL RAMÍREZ, HFP ####[facility] (DEFAULT)[address] [place] [address] Urea nitrogen/Creatinine [Mass ratio] 10 mg/mg Normal [facility] Comment on above: Performed By: #### NATHANIEL RAMÍREZ, HFP ####[facility] (DEFAULT)[address] [place] [address] EXTRA MICROon 08-30-2023 [facility] HEPATIC FUNCTION PANELon Albumin [Mass/Vol] 3.7 g/dL 3.5 - 5.0 g/dL [facility] ALP [Catalytic activity/Vol] 115 U/L 32 - 126 U/L [facility] ALT [Catalytic activity/Vol] 22 U/L 10 - 52 U/L [facility] AST [Catalytic activity/Vol] 34 U/L 10 - 39 U/L [facility] Bilirubin [Mass/Vol] 1.2 mg/dL NINF - 1.5 mg/dL [facility] Bilirubin.direct [Mass/Vol] 0.3 mg/dL High NINF - 0.3 mg/dL [facility] Protein [Mass/Vol] 7.7 g/dL 6.4 - 8.3 g/dL [facility] Albumin [Mass/Vol] 3.7 g/dL Normal 3.5-5.0 [facility] Comment on above: Performed By: #### NATHANIEL RAMÍREZ, HFP ####[facility] (DEFAULT)[address] [facility] [place] [address] ALP [Catalytic activity/Vol] 115 U/L Normal 32-126 [facility] Comment on above: Performed By: #### NATHANIEL RAMÍREZ, HFP ####[facility] (DEFAULT)[address] [facility] [place] [address] ALT [Catalytic activity/Vol] 22 U/L Normal 10-52 [facility] Comment on above: Performed By: #### NATHANIEL RAMÍREZ, HFP ####[facility] (DEFAULT)[address] [facility] [place] [address] AST [Catalytic activity/Vol] 34 U/L Normal 10-39 [facility] Comment on above: Performed By: #### NATHANIEL RAMÍREZ, HFP ####[facility] (DEFAULT)[address] [facility] [place] [address] Bilirubin [Mass/Vol] 1.2 mg/dL Normal <1.5 [facility] Comment on above: Performed By: #### NATHANIEL RAMÍREZ, HFP ####[facility] (DEFAULT)[address] [facility] [place] [address] Bilirubin.indirect [Mass/Vol] 0.3 mg/dL High <0.3 [facility] Comment on above: Performed By: #### NATHANIEL RAMÍREZ, HFP ####[facility] (DEFAULT)[address] [place] [address] Protein [Mass/Vol] 7.7 g/dL Normal 6.4-8.3 [facility] Comment on above: Performed By: #### M NATHANIEL BLOOM, HFP ####[facility] (DEFAULT)[address] [place] [address] MAGNESIUMon 08-30-2023 Interpretation and review of laboratory results [place] [facility] Magnesium [Mass/Vol] 1.8 mg/dL 1.6 - 2 .6 mg/dL [facility] Magnesium [Mass/Vol] 1.8 mg/dL Normal 1.6-2.6 [facility] Comment on above: Performed By: #### NATHANIEL RAMÍREZ, HFP ####[facility] (DEFAULT)[address] [place] [address] No Panel Informationon 08-30 Interpretation and review of laboratory results Abnormal [facility] CBC,PLATELETSon 08-29-2023 Erythrocyte distribution width (RBC) [Ratio] 13.4 % 10.9 - 14.3 % [facility] Hematocrit (Bld) [Volume fraction] 37.6 % Low 39.6 - 48.8 % [facility] Hemoglobin (Bld) [Mass/Vol] 12.2 g/dL Low 13.4 - 16.8 g/dL [facility] Interpretation and review of laboratory results Abnormal [facility] MCH (RBC) [Entitic mass] 27.6 pg 26.1 - 33.3 pg [facility] MCHC (RBC) [Mass/Vol] 32.4 g/dL 31.9 - 36.5 g/dL [facility] MCV (RBC) [Entitic vol] 85.1 fL 79.0 - 94.5 fL [facility] Platelet mean volume (Bld) [Entitic vol] 9.4 fL 8.7 - 12.3 fL [facility] Platelets (Bld) [#/Vol] 233 10*3/uL 146 - 337 K/uL [facility] RBC (Bld) [#/Vol] 4.42 10*6/uL [facility] WBC (Bld) [#/Vol] 4.92 10*3/uL 3.73 - 10. 10 K/uL [facility] Hematocrit (Bld) [Volume fraction] 37.6 % Low 39.6-48.8 [facility] Comment on above: Performed By: #### H [facility] ####[facility] (DEFAULT)[address] [place] [address] Hemoglobin (Bld) [Mass/Vol] 12.2 g/dL Low 13.4-16.8 [facility] Comment on above: Performed By: #### H [facility] ####[facility] (DEFAULT)[address] [place] [address] MCV (RBC) [Entitic vol] 85.1 fL Normal 79.0-94.5 [facility] Comment on above: Performed By: #### H EMO ####[facility] (DEFAULT)[address] [place] [address] Mean Cell Hgb 27.6 pg Normal 26.1-33.3 [facility] Comment on above: Performed By: #### H EMOGC ####[facility] (DEFAULT)[address] [place] [address] Mean Cell Hgb Conc 32.4 g/dL Normal 31.9-36.5 [facility] Comment on above: Performed By: #### H EMOGC ####[facility] (DEFAULT)[address] [facility] [place] [address] Platelet mean volume (Bld) [Entitic vol] 9.4 fL Normal 8.7-12.3 [facility] Comment on above: Performed By: #### H [facility] ####[facility] (DEFAULT)[address] [facility] [place] [address] Platelets (Bld) [#/Vol] 233 10*3/uL Normal 146-337 [facility] Comment on above: Performed By: #### H [facility] ####[facility] (DEFAULT)[address] [facility] [place] [address] RBC (Bld) [#/Vol] 4.42 10*6/uL Normal 4.38-5.83 [facility] Comment on above: Performed By: #### H [facility] ####[facility] (DEFAULT)[address] [facility] [place] [address] RBC Distribution 13.4 % Normal 10.9-14.3 [facility] Comment on above: Performed By: #### H [facility] ####[facility] (DEFAULT)[address] [facility] [place] [address] WBC (Bld) [#/Vol] 4.92 10*3/uL Normal 3.73-10.10 [facility] Comment on above: Performed By: #### H [facility] ####[facility] (DEFAULT)[address] [place] [address] CHEM 7 (LYTES,BUN,CREA,GLUC) on 08-29-2023 Anion gap [Moles/Vol] 13 mmol/L 7 - 17 mmol/L [facility] Chloride [Moles/Vol] 105 mmol/L 98 - 10 8 mmol/L [facility] CO2 [Moles/Vol] 20 mmol/L Low 21 - 31 mmol/L [facility] Creatinine [Mass/Vol] 1.55 mg/dL High 0.70 - 1.30 mg/dL [facility] eGFR, CKD-EPI, Male 54 Low - PINF [facility] Glucose [Mass/Vol] 108 mg/dL High 70 - 99 mg/dL [facility] Osmolality Calc [Osmolality] 283 [facility] Potassium [Moles/Vol] 4.5 mmol/L 3.5 - 5.0 mmol/L [facility] Sodium [Moles/Vol] 133 mmol/L Low 135 - 145 mmol/L [facility] Urea nitrogen [Mass/Vol] 19 mg/dL 7 - 25 mg/dL [facility] Urea nitrogen/Creatinine [Mass ratio] 12 mg/mg [facility] Anion gap [Moles/Vol] 13 mmol/L Normal 7-17 [facility] Comment on above: Performed By: #### M GO, CHM7, HFP, GGTB ####[facility] (DEFAULT)[address] [facility] [place] [address] Chloride [Moles/Vol] 105 mmol/L Normal 98-108 [facility] Comment on above: Performed By: #### M GO, CHM7, HFP, GGTB ####[facility] (DEFAULT)[address] [facility] [place] [address] CO2 [Moles/Vol] 20 mmol/L Low 21-31 [facility] Comment on above: Performed By: #### M GO, CHM7, HFP, GGTB ####[facility] (DEFAULT)[address] [facility] [place] [address] Creatinine [Mass/Vol] 1.55 mg/dL High 0.70-1.30 [facility] Comment on above: Performed By: #### M GO, CHM7, HFP, GGTB ####[facility] (DEFAULT)[address] [facility] [place] [address] GFR/1.73 sq M.predicted among non-blacks MDRD (S/P/Bld) [Vol rate/Area] 54 mL/min/{1.73_m2} Low >=60 [facility] Comment on above: Result Comment: Repo rted eGFR is based on the CKD-EPI 2020 equation using creatinine, age, and sex. Performed By: #### M GO, CHM7, HFP, GGTB ####[facility] (DEFAULT)[address] [place] [address] Glucose [Mass/Vol] 108 mg/dL High 70-99 [facility] Comment on above: Performed By: #### M GO, CHM7, HFP, GGTB ####[facility] (DEFAULT)[address] [place] [address] Osmolality [Osmolality] 283 mosm/kg Normal 278-305 [facility] Comment on above: Performed By: #### M GO, CHM7, HFP, GGTB ####[facility] (DEFAULT)[address] [place] [address] Potassium [Moles/Vol] 4.5 mmol/L Normal 3.5-5.0 [facility] Comment on above: Performed By: #### M GO, CHM7, HFP, GGTB ####[facility] (DEFAULT)[address] [place] [address] Sodium [Moles/Vol] 133 mmol/L Low 135-145 [facility] Comment on above: Performed By: #### M GO, CHM7, HFP, GGTB ####[facility] (DEFAULT)[address] [place] [address] Urea nitrogen [Mass/Vol] 19 mg/dL Normal 7-25 [facility] Comment on above: Performed By: #### M GO, CHM7, HFP, GGTB ####[facility] (DEFAULT)[address] [place] [address] Urea nitrogen/Creatinine [Mass ratio] 12 mg/mg Normal [facility] Comment on above: Performed By: #### M GO, CHM7, HFP, GGTB ####[facility] (DEFAULT)[address] [place] [address] GGTon 08-29-2023 Gamma glutamyl transferase [Catalytic activity/Vol] 64 U/L 8 - 64 U/L [facility] Interpretation and review of laboratory results Normal [facility] Gamma glutamyl transferase [Catalytic activity/Vol] 64 U/L Normal 8-64 [facility] Comment on above: Performed By: #### M GO, CHM7, HFP, GGTB ####[facility] (DEFAULT)[address] [place] [address] HEPATIC FUNCTION PANELon Albumin [Mass/Vol] 3.3 g/dL Low 3.5 - 5.0 g/dL [facility] ALP [Catalytic activity/Vol] 103 U/L 32 - 126 U/L [facility] ALT [Catalytic activity/Vol] 18 U/L 10 - 52 U/L [facility] AST [Catalytic activity/Vol] 27 U/L 10 - 39 U/L [facility] Bilirubin [Mass/Vol] 1.1 mg/dL [facility].5 mg/dL [facility] Bilirubin.direct [Mass/Vol] 0.3 mg/dL High NINF - 0.3 mg/dL [facility] Protein [Mass/Vol] 6.8 g/dL 6.4 - 8.3 g/dL [facility] Albumin [Mass/Vol] 3.3 g/dL Low 3.5-5.0 [facility] Comment on above: Performed By: #### M GO, CHM7, HFP, GGTB ####[facility] (DEFAULT)[address] [place] [address] ALP [Catalytic activity/Vol] 103 U/L Normal 32-126 [facility] Comment on above: Performed By: #### M GO, CHM7, HFP, GGTB ####[facility] (DEFAULT)[address] [place] [address] ALT [Catalytic activity/Vol] 18 U/L Normal 10-52 [facility] Comment on above: Performed By: #### M GO, CHM7, HFP, GGTB ####[facility] (DEFAULT)[address] [place] [address] AST [Catalytic activity/Vol] 27 U/L Normal 10-39 [facility] Comment on above: Performed By: #### M GO, CHM7, HFP, GGTB ####[facility] (DEFAULT)[address] [place] [address] Bilirubin [Mass/Vol] 1.1 mg/dL Normal <1.5 [facility] Comment on above: Performed By: #### M GO, CHM7, HFP, GGTB ####[facility] (DEFAULT)[address] [place] [address] Bilirubin.indirect [Mass/Vol] 0.3 mg/dL High <0.3 [facility] Comment on above: Performed By: #### M GO, CHM7, HFP, GGTB ####[facility] (DEFAULT)[address] [place] [address] Protein [Mass/Vol] 6.8 g/dL Normal 6.4-8.3 [facility] Comment on above: Performed By: #### M GO, CHM7, HFP, GGTB ####[facility] (DEFAULT)[address] [place] [address] HISTOPLASMA AND BLASTOMYCES ANTIGEN, ENZYME IMMUNOASSAY, SERMon 08-29-2023 Histoplasma/Blastomy antonia Ag Result Detected Invalid Interpretation Code Not Detected [facility] Comment on above: Result Comment: Anti gen from Histoplasma or Blastomyces (unable todifferentiate) detected. Result should be correlated withclinical presentation, exposure history, and otherdiagnostic procedures, including culture, serology,histopathology, and/or radiographic findings, to aid in thedifferentiation between histoplasmosis and blastomycosis.CRITICAL RESULT Performed By: #### H IBAG ####[facility] (DEFAULT)[address] [place] [address] Histoplasma/Blastomy antonia Ag Value 5.3 ng/mL Normal [facility] Comment on above: Result Comment: ---- ADDITIONAL INFORMATION This test was developed and its performance characteristicsdetermined by [facility] in a manner consistent with CLIArequirements. This test has not been cleared or approved bythe U.S. Food and Drug Administration.Test Performed by:[facility] [place] [address]Lab Director: Rosendo Bose M.D. Ph.D.; CLIA# [id number] Performed By: #### Lydia IBAG ####[facility] (DEFAULT)[address] [place] [address], [place] [address] HISTOPLASMA ANTIGEN,URINEon 08-29-2023 HISTOPLASM AG, URINE Not detected Normal Not Detected [facility] Comment on above: Result Comment: No H istoplasma antigen detected.False negative results may occur. Repeat testing on anew specimen should be considered if clinically indicated. Performed By: #### Noah HISTG ####[facility] (DEFAULT)[address] [place] [address], [place] [address] Histoplasma Ag Value Not detected Normal [facility] Comment on above: Result Comment: ---- ADDITIONAL INFORMATION This test has been modified from the transaction manager'sinstructions. Its performance characteristics weredetermined by [facility] in a manner consistent withCLIA requirements. This test has not been cleared orapproved by the U.S. Food and Drug Administration.Test Performed by:[facility] - [address] [address]zd Director: Rosendo Bose M.D. Ph.D.; CLIA# [id number] Performed By: #### Noah HISTG ####[facility] (DEFAULT)[address] [place] [address] MAGNESIUMon 08-29-2023 Interpretation and review of laboratory results Normal [facility] Magnesium [Mass/Vol] 1.7 mg/dL 1.6 - 2 .6 mg/dL [facility] Magnesium [Mass/Vol] 1.7 mg/dL Normal 1.6-2.6 [facility] Comment on above: Performed By: #### M GO, CHM7, HFP, GGTB ####[facility] (DEFAULT)[address] [place] [address] No Panel Informationon 08-29 Interpretation and review of laboratory results Abnormal [facility] PT,INR,PTTon 08-29-2023 aPTT Coag (PPP) [Time] 29.3 s [facility] INR Coag (Bld) [Relative time] 1.1 {INR} 0.9 - 1.1 [facility] Interpretation and review of laboratory results Normal [facility] PT Coag (PPP) [Time] 13.8 s [facility] aPTT Coag (Bld) [Time] 29.3 s Normal 24.0-34.3 [facility] Comment on above: Performed By: #### P TPTT ####[facility] (DEFAULT)[address] [place] [address] INR Coag (PPP) [Relative time] 1.1 {INR} Normal 0.9-1.1 [facility] Comment on above: Performed By: #### P TPTT ####[facility] (DEFAULT)[address] [place] [address] PT Coag (PPP) [Time] 13.8 s Normal 11.9-14.2 [facility] Comment on above: Performed By: #### P TPTT ####[facility] (DEFAULT)[address] [place] [address] Portable XR Chest Viewson RADIOLOGY RADIOLOGY [facility] Portable XR Chest ViewsOrder ed By: Gerald Baer on 08-29-2023 [facility] Work Phone: TACROLIMUS LEVEL, TROUGH (NC E DRUG LEVEL)on 08-29-2023 Interpretation and review of laboratory results Normal [facility] Tacrolimus (Bld) [Mass/Vol] 8.9 ng/mL [facility] Tacrolimus, Trough 8.9 ng/mL Normal Bone Susana ow Transplant: 4.0-12.0, Therapeutic: 5.0-15.0 [facility] Comment on above: Order Comment: Pleas e draw at specified interval PRIOR to dose. Do not hold dose to wait for level. Specimens batched twice per day, (M-F) and once per day weekendsMethod performed is a chemiluminescent microparticle immunoasssay on the [employer] i2000.The range is based on experience at [facility] and users should be aware that target concentrations vary widely depending on concomitant therapy, time post-transplant, and desired degree of immunosuppression. Performed By: #### T ACRO ####[facility] (DEFAULT)[address] [place] [address] Tacrolimus, Trough 8.7 ng/mL Normal [facility] Susana ow Transplant: 4.0-12.0, Therapeutic: 5.0-15.0 [facility] Comment on above: Order Comment: Pleas e draw at specified interval PRIOR to dose. Do not hold dose to wait for level. Specimens batched twice per day, (M-F) and once per day weekendsMethod performed is a chemiluminescent microparticle immunoasssay on the [employer] i2000.The range is based on experience at [facility] and users should be aware that target concentrations vary widely depending on concomitant therapy, time post-transplant, and desired degree of immunosuppression. Performed By: #### T ACRO ####[facility] (DEFAULT)[address] [place] [address] TACROLIMUS LEVEL, TROUGH (NC E DRUG LEVEL)Ordered By: Roxanne Louie on 08-29-2023 Interpretation and review of laboratory results [facility] Tacrolimus (Bld) [Mass/Vol] 8.7 ng/mL [facility] URINALYSIS REFLEX TO CULTURE PERFORMABLEOrdered By: Shaji Kelly on 08-29-2023 Appearance (U) Clear Clear [facility] Bacteria LM Ql (Urine sed) ABSENT ABSENT [facility] Calcium Oxalate Crystals PRESENT [facility] Color (U) Yellow Yellow [facility] Epithelial cells.squamous LM Ql (Urine sed) 0-2/hpf 0-2/hpf, 3-5/hpf = 1+ [facility] Glucose Test strip (U) [Mass/Vol] Negative Negative [facility] Interpretation and review of laboratory results Abnormal [facility] Ketones (U) [Mass/Vol] Negative Negative [facility] Leukocyte esterase Test strip Ql (U) Negative Negative [facility] Nitrite Ql (U) Negative Negative [facility] pH (U) 6.0 [pH] 5.0 - 7.0 [facility] Protein (U) [Mass/Vol] Negative Negative [facility] RBC (U) [#/Vol] Trace Abnormal Negative [facility] RBC LM.HPF (Urine sed) [#/Area] 3-5 Abnormal [facility] Specific gravity (U) [Rel density] 1.015 1.001 - 1.035 [facility] Urobilinogen (U) [Mass/Vol] 1.0 E.U./dL 0.2 E.U/dL, 1.0 E.U/dL [facility] WBC LM.HPF (Urine sed) [#/Area] 0 - 5 [facility] URINALYSIS REFLEX TO CULTURE PERFORMABLEon 08-29-2023 Appearance (U) Clear Normal Clear [facility] Comment on above: Order Comment: For i ndwelling catheters, specimen collection is acceptable on catheter day 1 and 2 only. ? Performed By: #### U [id number] ####[facility] (DEFAULT)[address] [place] [address] Bacteria ABSENT Normal ABSENT [facility] Comment on above: Order Comment: For i ndwelling catheters, specimen collection is acceptable on catheter day 1 and 2 only. ? Performed By: #### U [id number] ####[facility] (DEFAULT)[address] [place] [address] Blood Urine Trace Abnormal Negative [facility] Comment on above: Order Comment: For i ndwelling catheters, specimen collection is acceptable on catheter day 1 and 2 only. ? Performed By: #### U [id number] ####[facility] (DEFAULT)[address] [place] [address] Calcium Oxalate Crystals PRESENT Normal [facility] Comment on above: Order Comment: For i ndwelling catheters, specimen collection is acceptable on catheter day 1 and 2 only. ? Performed By: #### U [id number] ####[facility] (DEFAULT)[address] [place] [address] Color (U) Yellow Normal Yellow [facility] Comment on above: Order Comment: For i ndwelling catheters, specimen collection is acceptable on catheter day 1 and 2 only. ? Performed By: #### U [id number] ####[facility] (DEFAULT)[address] [place] [address] Glucose Ql (U) Negative Normal Negative [facility] Comment on above: Order Comment: For i ndwelling catheters, specimen collection is acceptable on catheter day 1 and 2 only. ? Performed By: #### U [id number] ####[facility] (DEFAULT)[address] [place] [address] Ketones Ql (U) Negative Normal Negative [facility] Comment on above: Order Comment: For i ndwelling catheters, specimen collection is acceptable on catheter day 1 and 2 only. ? Performed By: #### U [id number] ####[facility] (DEFAULT)[address] [place] [address] Leukocyte esterase Test strip Ql (U) Negative Normal Negative [facility] Comment on above: Order Comment: For i ndwelling catheters, specimen collection is acceptable on catheter day 1 and 2 only. ? Performed By: #### U [id number] ####[facility] (DEFAULT)[address] [place] [address] Nitrites Urine Negative Normal Negative [facility] Comment on above: Order Comment: For i ndwelling catheters, specimen collection is acceptable on catheter day 1 and 2 only. ? Performed By: #### U [id number] ####[facility] (DEFAULT)[address] [place] [address] pH (U) 6.0 [pH] Normal 5.0-7.0 [facility] Comment on above: Order Comment: For i ndwelling catheters, specimen collection is acceptable on catheter day 1 and 2 only. ? Performed By: #### U [id number] ####[facility] (DEFAULT)[address] [place] [address] Protein Urine Negative Normal Negative [facility] Comment on above: Order Comment: For i ndwelling catheters, specimen collection is acceptable on catheter day 1 and 2 only. ? Performed By: #### U [id number] ####[facility] (DEFAULT)[address] [place] [address] RBC Urine 3-5 Abnormal 0-2 [facility] Comment on above: Order Comment: For i ndwelling catheters, specimen collection is acceptable on catheter day 1 and 2 only. ? Performed By: #### U [id number] ####[facility] (DEFAULT)[address] [place] [address] Specific [place] Urine 1.015 Normal 1.001-1.035 [facility] Comment on above: Order Comment: For i ndwelling catheters, specimen collection is acceptable on catheter day 1 and 2 only. ? Performed By: #### U [id number] ####[facility] (DEFAULT)[address] [place] [address] Squamous/Epithelial Cells 0-2/hpf Normal 0-2/hpf, 3-5/hpf = 1+ [facility] Comment on above: Order Comment: For i ndwelling catheters, specimen collection is acceptable on catheter day 1 and 2 only. ? Performed By: #### U [id number] ####[facility] (DEFAULT)[address] [facility] [place] [address] Urobilinogen Urine 1.0 E.U./dL Normal 0.2 E.U/d L, 1.0 E.U/dL [facility] Comment on above: Order Comment: For i ndwelling catheters, specimen collection is acceptable on catheter day 1 and 2 only. ? Performed By: #### U [id number] ####[facility] (DEFAULT)[address] [place] [address], [place] [address] WBC Urine 0 - 5 Normal 0 - 5 [facility] Comment on above: Order Comment: For i ndwelling catheters, specimen collection is acceptable on catheter day 1 and 2 only. ? Performed By: #### U [id number] ####[facility] (DEFAULT)[address] [place] [address], [place] [address] URINE CULTUREon 08-29-2023 Bacteria identified Cx Nom (U) No Growth Normal [facility] Comment on above: Order Comment: For i ndwelling catheters, specimen collection is acceptable on catheter day 1 and 2 only. Sung top vacutainer. Urine must be to the fill line to process (4mls). If minimum volume, send urine in a yellow top vacutainer tube. Performed By: #### U R ####[facility] (DEFAULT)[address] [place] [address], [place] [address] US RENAL TRANSPLANT SCANon 0 08-29-2023 US RENAL TRANSPLANT SCAN Normal [facility] US for transplanted kidney l imitedon 08-29-2023 RADIOLOGY RADIOLOGY [facility] Radiology Study observation (narrative) [facility] US for transplanted kidney l imitedOrdered By: Romana Matias on 08-29-2023 [facility] Work Phone: XR CHEST PORTABLEon 08-29-20 23 XR CHEST PORTABLE Normal [facility] BLOOD CULTUREon 08-28-2023 Bacteria identified Cx Nom (Unsp spec) NO GROWTH DAY 5 OF 5 Normal [facility] Comment on above: Order Comment: 2 Bot tles (1 Set - consists of 1 Aerobic bottle and 1 Anaerobic bottle) -1st Peripheral DrawFor syringe method draw:If able to obtain adequate sample (20 ml) inoculate anaerobic bottle firstIf inadequate sample obtained (less than 20 ml) inoculate aerobic bottle firstFor vacutainer method draw: Fill aerobic bottle first, then anaerobic Performed By: #### B LDCULT ####[facility] (DEFAULT)[address] [place] [address] Bacteria identified Cx Nom (Unsp spec) NO GROWTH DAY 5 OF 5 Normal [facility] Comment on above: Order Comment: 2 Bot tles (1 Set - consists of 1 Aerobic bottle and 1 Anaerobic bottle) -1st Peripheral DrawFor syringe method draw:If able to obtain adequate sample (20 ml) inoculate anaerobic bottle firstIf inadequate sample obtained (less than 20 ml) inoculate aerobic bottle firstFor vacutainer method draw: Fill aerobic bottle first, then anaerobic Performed By: #### B LDCULT ####[facility] (DEFAULT)[address] [place] [address] DARYL AURIS SCREEN BY PCRo n 08-28-2023 Daryl auris Screen by PCR Not detected Normal Not Detected [facility] Comment on above: Order Comment: This test was performed using a real-time PCR assay. This test was developed, and its performance characteristics determined by [facility]. It has not been cleared or approved by the FDA. The laboratory is regulated under CLIA as qualified to perform high-complexity testing. This test is used for clinical purposes. It should not be regarded as investigational or for research. Performed By: #### C ANDIDA AURIS SCREEN BY PCR ####[facility] (DEFAULT)[address] [place] [address] CBC AND ELECTRONIC DIFFon Basophils (Bld) [#/Vol] K/uL 0.00 - 0.09 K/uL [facility] Basophils/100 WBC (Bld) 0.6 % [facility] Differential cell count method Nom (Bld) Electronic Differential [facility] Eosinophils (Bld) [#/Vol] 0.10 10*3/uL 0.00 - 0.48 K/uL [facility] Eosinophils/100 WBC (Bld) 2.1 % [facility] Erythrocyte distribution width (RBC) [Ratio] 13.4 % 10.9 - 14.3 % [facility] Hematocrit (Bld) [Volume fraction] 37.9 % Low 39.6 - 48.8 % [facility] Hemoglobin (Bld) [Mass/Vol] 12.4 g/dL Low 13.4 - 16.8 g/dL [facility] Immature granulocytes (Bld) [#/Vol] K/uL NINF - 0.07 K/uL [facility] Immature granulocytes/100 WBC (Bld) 0.6 % [facility] Interpretation and review of laboratory results Abnormal [facility] Lymphocytes (Bld) [#/Vol] 1.76 10*3/uL 0.83 - 3.57 K/uL [facility] Lymphocytes/100 WBC (Bld) 37.1 % [facility] MCH (RBC) [Entitic mass] 27.8 pg 26.1 - 33.3 pg [facility] MCHC (RBC) [Mass/Vol] 32.7 g/dL 31.9 - 36.5 g/dL [facility] MCV (RBC) [Entitic vol] 85.0 fL 79.0 - 94.5 fL [facility] Monocytes (Bld) [#/Vol] 0.66 10*3/uL 0.24 - 0.93 K/uL [facility] Monocytes/100 WBC (Bld) 13.9 % [facility] Neutrophils (Bld) [#/Vol] 2.16 10*3/uL 1.57 - 6.19 K/uL [facility] Nucleated RBC/100 WBC (Bld) [Ratio] 0.0 % NINF [facility] Platelet mean volume (Bld) [Entitic vol] 9.3 fL 8.7 - 12.3 fL [facility] Platelets (Bld) [#/Vol] 262 10*3/uL 146 - 337 K/uL [facility] RBC (Bld) [#/Vol] 4.46 10*6/uL [facility] Segmented neutrophils/100 WBC (Bld) 45.7 % [facility] WBC (Bld) [#/Vol] 4.74 10*3/uL 3.73 - 10. 10 K/uL [facility] Abs Baso Auto < Normal 0.00-0.09 [facility] Comment on above: Performed By: #### L [id number] ####[facility] (DEFAULT)[address] [place] [address] Basophils/100 WBC (Bld) 0.6 % Normal [facility] Comment on above: Performed By: #### L [id number] ####[facility] (DEFAULT)[address] [place] [address] DIFF STATUS Electronic Differential Normal [facility] Comment on above: Performed By: #### L [id number] ####[facility] (DEFAULT)[address] [place] [address] Eosinophils (Bld) [#/Vol] 0.10 10*3/uL Normal 0.00-0.48 [facility] Comment on above: Performed By: #### L [id number] ####[facility] (DEFAULT)[address] [place] [address] Eosinophils/100 WBC (Bld) 2.1 % Normal [facility] Comment on above: Performed By: #### L [id number] ####[facility] (DEFAULT)[address] [place] [address] Hematocrit (Bld) [Volume fraction] 37.9 % Low 39.6-48.8 [facility] Comment on above: Performed By: #### L [id number] ####[facility] (DEFAULT)[address] [place] [address], [place] [address] Hemoglobin (Bld) [Mass/Vol] 12.4 g/dL Low 13.4-16.8 [facility] Comment on above: Performed By: #### L [id number] ####[facility] (DEFAULT)[address] [place] [address], [place] [address] Immature Grans % 0.6 % Normal [facility] Comment on above: Performed By: #### L [id number] ####[facility] (DEFAULT)[address] [place] [address], [place] [address] Immature Grans Absolute < Normal <=0.07 [facility] Comment on above: Performed By: #### L [id number] ####[facility] (DEFAULT)[address] [place] [address] Lymphocytes (Bld) [#/Vol] 1.76 10*3/uL Normal 0.83-3.57 [facility] Comment on above: Performed By: #### L [id number] ####[facility] (DEFAULT)[address] [place] [address], [place] [address] Lymphocytes/100 WBC (Bld) 37.1 % Normal [facility] Comment on above: Performed By: #### L [id number] ####[facility] (DEFAULT)[address] [place] [address] MCV (RBC) [Entitic vol] 85.0 fL Normal 79.0-94.5 [facility] Comment on above: Performed By: #### L [id number] ####[facility] (DEFAULT)[address] [place] [address] [place] [address] Mean Cell Hgb 27.8 pg Normal 26.1-33.3 [facility] Comment on above: Performed By: #### L [id number] ####[facility] (DEFAULT)[address] [place] [address] Mean Cell Hgb Conc 32.7 g/dL Normal 31.9-36.5 [facility] Comment on above: Performed By: #### L [id number] ####[facility] (DEFAULT)[address] [place] [address] Monocytes (Bld) [#/Vol] 0.66 10*3/uL Normal 0.24-0.93 [facility] Comment on above: Performed By: #### L [id number] ####[facility] (DEFAULT)[address] [place] [address] Monocytes/100 WBC (Bld) 13.9 % Normal [facility] Comment on above: Performed By: #### L [id number] ####[facility] (DEFAULT)[address] [place] [address] Nucleated RBC 0.0 /100 WBC Normal <=0.2 [facility] Comment on above: Performed By: #### L [id number] ####[facility] (DEFAULT)[address] [place] [address] Platelet mean volume (Bld) [Entitic vol] 9.3 fL Normal 8.7-12.3 [facility] Comment on above: Performed By: #### L [id number] ####[facility] (DEFAULT)[address] [place] [address] Platelets (Bld) [#/Vol] 262 10*3/uL Normal 146-337 [facility] Comment on above: Performed By: #### L [id number] ####[facility] (DEFAULT)[address] [place] [address] RBC (Bld) [#/Vol] 4.46 10*6/uL Normal 4.38-5.83 [facility] Comment on above: Performed By: #### L [id number] ####[facility] (DEFAULT)[address] [facility] [place] [address] RBC Distribution 13.4 % Normal 10.9-14.3 [facility] Comment on above: Performed By: #### L [id number] ####[facility] (DEFAULT)[address] [facility] [place] [address] Segs + Bands Auto 45.7 % Normal [facility] Comment on above: Performed By: #### L [id number] ####[facility] (DEFAULT)[address] [facility] [place] [address] Segs + Bands,Absolute Auto 2.16 K/uL Normal 1.57-6.19 [facility] Comment on above: Performed By: #### L [id number] ####[facility] (DEFAULT)[address] [facility] [place] [address] WBC (Bld) [#/Vol] 4.74 10*3/uL Normal 3.73-10.10 [facility] Comment on above: Performed By: #### L [id number] ####[facility] (DEFAULT)[address] [place] [address] CHEM 6 (LYTES, BUN CREA)on 0 08-28-2023 Anion gap [Moles/Vol] 13 mmol/L 7 - 17 mmol/L [facility] Chloride [Moles/Vol] 103 mmol/L 98 - 10 8 mmol/L [facility] CO2 [Moles/Vol] 22 mmol/L 21 - 31 mmol/L [facility] Creatinine [Mass/Vol] 1.62 mg/dL High 0.70 - 1.30 mg/dL [facility] eGFR, CKD-EPI, Male 51 Low - PINF [facility] Interpretation and review of laboratory results Abnormal [facility] Potassium [Moles/Vol] 4.3 mmol/L 3.5 - 5.0 mmol/L [facility] Sodium [Moles/Vol] 134 mmol/L Low 135 - 145 mmol/L [facility] Urea nitrogen [Mass/Vol] 22 mg/dL 7 - 25 mg/dL [facility] Urea nitrogen/Creatinine [Mass ratio] 14 mg/mg [facility] Anion gap [Moles/Vol] 13 mmol/L Normal 7-17 [facility] Comment on above: Performed By: #### C HM6 ####[facility] (DEFAULT)[address] [place] [address] Chloride [Moles/Vol] 103 mmol/L Normal 98-108 [facility] Comment on above: Performed By: #### C HM6 ####[facility] (DEFAULT)[address] [facility] [place] [address] CO2 [Moles/Vol] 22 mmol/L Normal 21-31 [facility] Comment on above: Performed By: #### C HM6 ####[facility] (DEFAULT)[address] [facility] [place] [address] Creatinine [Mass/Vol] 1.62 mg/dL High 0.70-1.30 [facility] Comment on above: Performed By: #### C HM6 ####[facility] (DEFAULT)[address] [facility] [place] [address] GFR/1.73 sq M.predicted among non-blacks MDRD (S/P/Bld) [Vol rate/Area] 51 mL/min/{1.73_m2} Low >=60 [facility] Comment on above: Result Comment: Repo rted eGFR is based on the CKD-EPI 2020 equation using creatinine, age, and sex. Performed By: #### C HM6 ####[facility] (DEFAULT)[address] [place] [address] Potassium [Moles/Vol] 4.3 mmol/L Normal 3.5-5.0 [facility] Comment on above: Performed By: #### C HM6 ####[facility] (DEFAULT)[address] [place] [address] Sodium [Moles/Vol] 134 mmol/L Low 135-145 [facility] Comment on above: Performed By: #### C HM6 ####[facility] (DEFAULT)[address] [place] [address] Urea nitrogen [Mass/Vol] 22 mg/dL Normal 7-25 [facility] Comment on above: Performed By: #### C HM6 ####[facility] (DEFAULT)[address] [place] [address] Urea nitrogen/Creatinine [Mass ratio] 14 mg/mg Normal [facility] Comment on above: Performed By: #### C HM6 ####[facility] (DEFAULT)[address] [place] [address] IMMUNOCOMPROMISED RESPIRATOR Y PANELon 08-28-2023 Adenovirus - [...] assay. Performed By: #### I CRESP ####[facility] (DEFAULT)[address] [place] [address] Bordetella Parapertussis Not detected Normal Not Detected [facility] [...] acid assay. Performed By: #### I CRESP ####[facility] (DEFAULT)[address] [place] [address], [place] [address] Bordetella Pertussis Not detected Normal Not Detected [facility] [...] acid assay. Performed By: #### I CRESP ####[facility] (DEFAULT)[address] [place] [address] Chlamydia Pneumoniae Not detected Normal Not Detected [facility] [...] acid assay. Performed By: #### I CRESP ####[facility] (DEFAULT)[address] [place] [address], [place] [address] Coronavirus 229E Not detected Normal Not Detected [facility] [...] acid assay. Performed By: #### I CRESP ####[facility] (DEFAULT)[address] [place] [address], [place] [address] Coronavirus Hku1 Not detected Normal Not Detected [facility] [...] acid assay. Performed By: #### I CRESP ####[facility] (DEFAULT)[address] [place] [address], [place] [address] Coronavirus Nl63 Not detected Normal Not Detected [facility] [...] acid assay. Performed By: #### I CRESP ####[facility] (DEFAULT)[address] [place] [address], [place] [address] Coronavirus Oc43 Not detected Normal Not Detected [facility] [...] acid assay. Performed By: #### I CRESP ####[facility] (DEFAULT)[address] [place] [address], [place] [address] Influenza A - Pcr Not detected Normal Not Detected [facility] Comment on above: Order Comment: [...] acid assay. Performed By: #### I CRESP ####[facility] (DEFAULT)[address] [place] [address], [place] [address] Influenza B - Pcr Not detected Normal Not Detected [facility] Comment on above: Order Comment: [...] acid assay. Performed By: #### I CRESP ####[facility] (DEFAULT)[address] [place] [address], [place] [address] Metapneumovirus - Pcr Not detected Normal Not [...] acid assay. Performed By: #### I CRESP ####[facility] (DEFAULT)[address] [place] [address], [place] [address] Mycoplasma Pneumoniae Not detected Normal Not Detected [facility] [...] acid assay. Performed By: #### I CRESP ####[facility] (DEFAULT)[address] [place] [address], [place] [address] Parainfluenza 1 - Pcr Not detected Normal [...] acid assay. Performed By: #### I CRESP ####[facility] (DEFAULT)[address] [facility] [place] [address] Parainfluenza 2 - Pcr Not detected Normal [...] acid assay. Performed By: #### I CRESP ####[facility] (DEFAULT)[address] [place] [address], [place] [address] Parainfluenza 3 - Pcr Not detected Normal [...] acid assay. Performed By: #### I CRESP ####[facility] (DEFAULT)[address] [place] [address] Parainfluenza 4 - Pcr Not detected Normal [...] acid assay. Performed By: #### I CRESP ####[facility] (DEFAULT)[address] [place] [address], [place] [address] Rhinovirus/Enterovir us - PCR Not detected Normal Not Detected [facility] [...] acid assay. Performed By: #### I CRESP ####[facility] (DEFAULT)[address] [place] [address] Rsv - Pcr Not detected Normal Not [...] acid assay. Performed By: #### I CRESP ####[facility] (DEFAULT)[address] [place] [address] SARS-CoV-2 (COVID-19) RNA ESTELITA+probe Ql (Unsp spec) Not detected Normal NOT DETECTED [facility] Comment on above: Order Comment: [...] acid assay. Performed By: #### I CRESP ####[facility] (DEFAULT)[address] [place] [address] Portable XR Chest Viewson Radiology Study observation (narrative) [facility] Respiratory virus DNA+RNA NA A+probe Nom (Unsp spec)Ordered By: Dayami Harris on 08-28-2023 Adenovirus DNA ESTELITA+probe Nom (Unsp spec) Not detected Not Detected [facility] B. parapertussis DNA ESTELITA+probe Ql (Unsp spec) Not detected Not [facility] B. pertussis DNA ESTELITA+probe Ql (Unsp spec) Not detected Not Detected [facility] C. pneumoniae DNA ESTELITA+probe Ql (Unsp spec) Not detected Not Detected [facility] FLUAV RNA ESTELITA+probe Ql (Unsp spec) Not detected Not Detected [facility] FLUBV RNA ESTELITA+probe Ql (Unsp spec) Not detected Not Detected [facility] HCoV 229E RNA ESTELITA+non-probe Ql (Nph) Not detected Not Detected [facility] HCoV HKU1 RNA ESTELITA+non-probe Ql (Nph) Not detected Not Detected [facility] HCoV NL63 RNA ESTELITA+non-probe Ql (Nph) Not detected Not Detected [facility] HCoV OC43 RNA ESTELITA+non-probe Ql (Nph) Not detected Not Detected [facility] hMPV A RNA ESTELITA+probe Ql (Unsp spec) Not detected Not Detected [facility] Interpretation and review of laboratory results Normal [facility] M. pneumoniae DNA ESTELITA+probe Ql (Unsp spec) Not detected Not Detected [facility] Parainfluenza virus 1 RNA ESTELITA+probe Ql (Unsp spec) Not detected Not Detected [facility] Parainfluenza virus 2 RNA ESTELITA+probe Ql (Unsp spec) Not detected Not Detected [facility] Parainfluenza virus 3 RNA ESTELITA+probe Ql (Unsp spec) Not detected Not Detected [facility] Parainfluenza virus 4 RNA ESTELITA+probe Ql (Unsp spec) Not detected Not Detected [facility] Rhinovirus+Enterovir us RNA ESTELITA+probe Ql (Unsp spec) Not detected Not Detected [facility] RSV RNA ESTELITA+probe Ql (Unsp spec) Not detected Not Detected [facility] SARS-CoV-2 (COVID-19) RNA ESTELITA+probe Ql (Unsp spec) Not detected NOT DETECTED [facility] ALBUMINon 04-28-2023 Albumin [Mass/Vol] 4.0 g/dL Normal 3.4-5.[address] [facility] Comment on above: Performed By: #### C MP #### [facility] [address] [place] [address] Dr. Dwight Waters ALKALINE PHOSPHAon ALP [Catalytic activity/Vol] 106 U/L Normal 46-116 [facility] Comment on above: Performed By: #### F [id number] #### [facility] [address] [place] [address] Dr. Dwight Waters BILIRUBIN CONJUGATED (DIRECT )on 04-28-2023 BILI, CONJUGATED 0.3 mg/dL Critically high 0.0-0.[address] [facility] Comment on above: Performed By: #### C MP #### [facility] [address] [place] [address] Dr. Dwight Waters BILIRUBIN TOTALon 04-28-2023 Bilirubin [Mass/Vol] 1.4 mg/dL Critically high 0.2-1.0 [facility] Comment on above: Performed By: #### C MP #### [facility] [address] [place] [address] Dr. Dwight Waters BUNon 04-28-2023 Urea nitrogen [Mass/Vol] 12.0 mg/dL Normal 7.0-18.[address] [facility] Comment on above: Performed By: #### U RTPCR #### [facility] [address] [place] [address] Dr. Dwight Waters CALCIUMon 04-28-2023 Calcium [Mass/Vol] 9.3 mg/dL Normal 8.5-10.[address] [facility] Comment on above: Performed By: #### U RTPCR #### [facility] [address] [place] [address] Dr. Dwight Waters CBC AUTO DIFFon 04-28-2023 BASO # 0.1 103/ul Normal 0.0-0.[address] [facility] Comment on above: Performed By: #### C BC #### [facility] [address] [place] [address] Dr. Dwight Waters Basophils/100 WBC (Bld) 0.9 % Normal 0.2-2.[address] [facility] Comment on above: Performed By: #### C BC #### [facility] [address] [place] [address] Dr. Dwight Waters EO # 0.2 103/ul Normal 0.0-0.[address] [facility] Comment on above: Performed By: #### C BC #### [facility] [address] [place] [address] Dr. Dwight Waters Eosinophils/100 WBC (Bld) 3.8 % Normal 0.9-7.0 [facility] Comment on above: Performed By: #### C BC #### [facility] [address] [place] [address] Dr. Dwight Waters Erythrocyte distribution width (RBC) [Ratio] 12.5 % Normal 11.0-15.0 [facility] Comment on above: Performed By: #### C BC #### [facility] [address] [place] [address] Dr. Dwight Waters Hematocrit (Bld) [Volume fraction] 49.8 % Normal 42.0-54.0 [facility] Comment on above: Performed By: #### C BC #### [facility] [address] [place] [address] Dr. Dwight Waters Hemoglobin (Bld) [Mass/Vol] 16.4 g/dL Normal 14.0-18.0 [facility] Comment on above: Performed By: #### C BC #### [facility] [address] [place] [address] Dr. Dwight Waters IG # 0.01 10e3/ul Normal 0.00-0.[address] [facility] Comment on above: Performed By: #### C BC #### [facility] [address] [place] [address] Dr. Dwight Waters IG % 0.2 % Normal 0.0-0.[address] [facility] Comment on above: Performed By: #### C BC #### [facility] [address] [place] [address] Dr. Dwight Waters LYMPH # 2.1 103/ul Normal 1.2-3.[address] [facility] Comment on above: Performed By: #### C BC #### [facility] [address] [place] [address] Dr. Dwight Waters Lymphocytes/100 WBC (Bld) 39.1 % Normal 20.5-60.0 [facility] Comment on above: Performed By: #### C BC #### [facility] [address] [place] [address] Dr. Dwight Waters MANUAL DIFF REQ NO Normal [facility] Comment on above: Performed By: #### C BC #### [facility] [address] [place] [address] Dr. Dwight Waters MCH (RBC) [Entitic mass] 28.6 pg Normal 25.9-34.[address] [facility] Comment on above: Performed By: #### C BC #### [facility] [address] [place] [address] Dr. Dwight Waters MCHC (RBC) [Mass/Vol] 32.9 g/dL Normal 29.9-35.[address] [facility] Comment on above: Performed By: #### C BC #### [facility] [address] [place] [address] Dr. Dwight Waters MCV (RBC) [Entitic vol] 86.9 fL Normal 80.0-94.0 [facility] Comment on above: Performed By: #### C BC #### [facility] [address] [place] [address] Dr. Dwight Waters MONO # 0.6 103/ul Normal 0.3-0.[address] [facility] Comment on above: Performed By: #### C BC #### [facility] [address] [place] [address] Dr. Dwight Waters Monocytes/100 WBC (Bld) 10.6 % Normal 1.7-12.[address] [facility] Comment on above: Performed By: #### C BC #### [facility] [address] [place] [address] Dr. Dwight Waters NEUT # 2.5 103/ul Normal 1.4-6.[address] [facility] Comment on above: Performed By: #### C BC #### [facility] [address] [place] [address] Dr. Dwight Waters Neutrophils/100 WBC (Bld) 45.4 % Normal 43.0-75.[address] [facility] Comment on above: Performed By: #### C BC #### [facility] [address] [place] [address] Dr. Dwight Waters Platelet mean volume (Bld) [Entitic vol] 9.3 fL Critically low 9.5-13.[address] [facility] Comment on above: Performed By: #### C BC #### [facility] [address] [place] [address] Dr. Dwight Waters PLT 248 103/ul Normal 150-[address] [facility] Comment on above: Performed By: #### C BC #### [facility] [address] [place] [address] Dr. Dwight Waters RBC 5.73 106/ul Normal 4.70-6.[address] [facility] Comment on above: Performed By: #### C BC #### [facility] [address] [place] [address] Dr. Dwight Waters WBC 5.5 103/ul Normal 4.0-11.[address] [facility] Comment on above: Performed By: #### C BC #### [facility] [address] [place] [address] Dr. Dwight Waters CHLORIDEon 04-28-2023 Chloride [Moles/Vol] 107 mmol/L Normal 98-[address] [facility] Comment on above: Performed By: #### U RTPCR #### [facility] [address] [place] [address] Dr. Dwight Waters CO2on 04-28-2023 CO2 [Moles/Vol] 28.9 mmol/L Normal 21.0-32.[address] [facility] Comment on above: Performed By: #### U RTPCR #### [facility] [address] [place] [address] Dr. Dwight Waters CREATININEon 04-28-2023 Creatinine [Mass/Vol] 1.17 mg/dL Normal 0.70-1.[address] [facility] Comment on above: Performed By: #### U RTPCR #### [facility] [address] [address] [address] Dwight Waters EGFR-AF GHANAIAN >60 Normal >=60 [facility] Comment on above: Performed By: #### U RTPCR #### [facility] [address] [address] [address] Dwight Waters EGFR-NON AF GHANAIAN >60 Normal >=60 [facility] Comment on above: Performed By: #### U RTPCR #### [facility] [address] [address] [address] Dwight Waters GGTon 04-28-2023 Gamma glutamyl transferase [Catalytic activity/Vol] 27 U/L Normal 15-85 [facility] Comment on above: Performed By: #### U RTPCR #### [facility] [address] [place] [address] Dr. Dwight Waters GLUCOSE BLOODon 04-28-2023 Glucose [Mass/Vol] 110 mg/dL Critically high 74-106 [facility] Comment on above: Performed By: #### U RTPCR #### [facility] [address] [address] [address] Dwight Waters MAGNESIUMon 04-28-2023 Magnesium [Mass/Vol] 1.7 mg/dL Critically low 1.8-2.4 [facility] Comment on above: Performed By: #### U RTPCR #### [facility] [address] [place] [address] Dr. Dwight Waters NAon 04-28-2023 Sodium [Moles/Vol] 144 mmol/L Normal 136-145 [facility] Comment on above: Performed By: #### U RTPCR #### [facility] [address] [address] [address] Dwight Waters PHOSPHORUSon 04-28-2023 Phosphate [Mass/Vol] 3.2 mg/dL Normal 2.6-4.7 [facility] Comment on above: Performed By: #### U RTPCR #### [facility] [address] [place] [address] Dr. Dwight Waters POTASSIUMon 04-28-2023 Potassium [Moles/Vol] 4.0 mmol/L Normal 3.5-5.1 [facility] Comment on above: Performed By: #### U RTPCR #### [facility] [address] [place] [address] Dr. Dwight OLVERAOTon 04-28-2023 AST [Catalytic activity/Vol] 25 U/L Normal 15-37 [facility] Comment on above: Performed By: #### C MP #### [facility] [address] [place] [address] Dr. Dwight Waters SGPTon 04-28-2023 ALT [Catalytic activity/Vol] 40 U/L Normal 16-63 [facility] Comment on above: Performed By: #### C MP #### [facility] [address] [place] [address] Dr. Dwight Waters URINE T PROTEIN CREAT RATIOo n 04-28-2023 Protein (U) [Mass/Vol] 10.1 mg/dL Normal <=12.0 [facility] Comment on above: Performed By: #### U RTPCR #### [facility] [address] [place] [address] Dr. Dwight Waters UR PROT CREAT RAT 0.14 Normal [facility] Comment on above: Performed By: #### U RTPCR #### [facility] [address] [place] [address] Dr. Dwight Waters URINE CREAT 74.40 mg/dL Normal 20.00-300.00 [facility] Comment on above: Performed By: #### U RTPCR #### [facility] [address] [place] [address] Dr. Dwight Waters BK VIRUS PCR QUANTon 023 BKV DNA QUANT PCR PLASMA Negative Normal Negative [facility] Comment on above: Result Comment: No B K DNA detected. . The linear range of the assay is 22 - 100,000,000 IU/mL. Performed By: #### B KVIRUS #### [facility] [address] [place] [address] Dr. Dwight Waters Log10 BKV DNA Plasma Normal [facility] Comment on above: Performed By: #### B KVIRUS #### [facility] [address] [place] [address] Dr. Dwight Waters FK506 (TACROLIMUS) WHOLE BLO ODon 03-04-2023 Tacrolimus (FK506), Blood 5.9 ng/mL Normal 2.0-20.0 [facility] Comment on above: Result Comment: Trou gh (immediately following transplant) 15.0 . Trough (steady state, 2 weeks or more after transplant): 3.0 - 8.0 . Performed by LC-MS/MS technology. Performed By: #### C MP #### [facility] [address] [place] [address] Dr. Dwight Waters ALBUMINon 03-02-2023 Albumin [Mass/Vol] 3.9 g/dL Normal 3.4-5.0 [facility] Comment on above: Performed By: #### U RTPCR #### [facility] [address] [place] [address] Dr. Dwight Waters ALKALINE PHOSPHAon ALP [Catalytic activity/Vol] 105 U/L Normal 46-116 [facility] Comment on above: Performed By: #### U RTPCR #### [facility] [address] [place] [address] Dr. Dwight Waters BILIRUBIN CONJUGATED (DIRECT )on 03-02-2023 BILI, CONJUGATED 0.2 mg/dL Normal 0.0-0.2 [facility] Comment on above: Performed By: #### U RTPCR #### [facility] [address] [place] [address] Dr. Dwight Waters BILIRUBIN TOTALon 03-02-2023 Bilirubin [Mass/Vol] 0.9 mg/dL Normal 0.2-1.0 [facility] Comment on above: Performed By: #### U RTPCR #### [facility] [address] [place] [address] Dr. Dwight Waters CBC AUTO DIFFon 03-02-2023 BASO # 0.1 103/ul Normal 0.0-0.1 [facility] Comment on above: Performed By: #### C BC #### [facility] [address] [place] [address] Dr. Dwight Waters Basophils/100 WBC (Bld) 0.9 % Normal 0.2-2.0 [facility] Comment on above: Performed By: #### C BC #### [facility] [address] [place] [address] Dr. Dwight Waters EO # 0.2 103/ul Normal 0.0-0.[address] [facility] Comment on above: Performed By: #### C BC #### [facility] [address] [place] [address] Dr. Dwight Waters Eosinophils/100 WBC (Bld) 3.5 % Normal 0.9-7.0 [facility] Comment on above: Performed By: #### C BC #### [facility] [address] [place] [address] Dr. Dwight Waters Erythrocyte distribution width (RBC) [Ratio] 12.7 % Normal 11.0-15.0 [facility] Comment on above: Performed By: #### C BC #### [facility] [address] [place] [address] Dr. Dwight Waters Hematocrit (Bld) [Volume fraction] 48.2 % Normal 42.0-54.0 [facility] Comment on above: Performed By: #### C BC #### [facility] [address] [place] [address] Dr. Dwight Waters Hemoglobin (Bld) [Mass/Vol] 15.9 g/dL Normal 14.0-18.0 [facility] Comment on above: Performed By: #### C BC #### [facility] [address] [place] [address] Dr. Dwight Waters IG # 0.01 10e3/ul Normal 0.00-0.[address] [facility] Comment on above: Performed By: #### C BC #### [facility] [address] [place] [address] Dr. Dwight Waters IG % 0.2 % Normal 0.0-0.[address] [facility] Comment on above: Performed By: #### C BC #### [facility] [address] [place] [address] Dr. Dwight Waters LYMPH # 2.1 103/ul Normal 1.2-3.8 [facility] Comment on above: Performed By: #### C BC #### [facility] [address] [place] [address] Dr. Dwight Waters Lymphocytes/100 WBC (Bld) 37.4 % Normal 20.5-60.0 [facility] Comment on above: Performed By: #### C BC #### [facility] [address] [place] [address] Dr. Dwight Waters MANUAL DIFF REQ NO Normal [facility] Comment on above: Performed By: #### C BC #### [facility] [address] [place] [address] Dr. Dwight Waters MCH (RBC) [Entitic mass] 28.3 pg Normal 25.9-34.0 [facility] Comment on above: Performed By: #### C BC #### [facility] [address] [place] [address] Dr. Dwight Waters MCHC (RBC) [Mass/Vol] 33.0 g/dL Normal 29.9-35.2 [facility] Comment on above: Performed By: #### C BC #### [facility] [address] [place] [address] Dr. Dwight Waters MCV (RBC) [Entitic vol] 85.8 fL Normal 80.0-94.0 [facility] Comment on above: Performed By: #### C BC #### [facility] [address] [place] [address] Dr. Dwight Waters MONO # 0.6 103/ul Normal 0.3-0.[address] [facility] Comment on above: Performed By: #### C BC #### [facility] [address] [place] [address] Dr. Dwight Waters Monocytes/100 WBC (Bld) 10.2 % Normal 1.7-12.0 [facility] Comment on above: Performed By: #### C BC #### [facility] [address] [place] [address] Dr. Dwight Waters NEUT # 2.7 103/ul Normal 1.4-6.5 [facility] Comment on above: Performed By: #### C BC #### [facility] [address] [place] [address] Dr. Dwight Waters Neutrophils/100 WBC (Bld) 47.8 % Normal 43.0-75.0 [facility] Comment on above: Performed By: #### C BC #### [facility] [address] [place] [address] Dr. Dwight Waters Platelet mean volume (Bld) [Entitic vol] 9.3 fL Critically low 9.5-13.5 [facility] Comment on above: Performed By: #### C BC #### [facility] [address] [place] [address] Dr. Dwight Waters PLT 241 103/ul Normal 150-450 [facility] Comment on above: Performed By: #### C BC #### [facility] [address] [place] [address] Dr. Dwight Waters RBC 5.62 106/ul Normal 4.70-6.[address] [facility] Comment on above: Performed By: #### C BC #### [facility] [address] [place] [address] Dr. Dwight Waters WBC 5.7 103/ul Normal 4.0-11.[address] [facility] Comment on above: Performed By: #### C BC #### [facility] [address] [place] [address] Dr. Dwight Waters GGTon 03-02-2023 Gamma glutamyl transferase [Catalytic activity/Vol] 25 U/L Normal 15-[address] [facility] Comment on above: Performed By: #### U RTPCR #### [facility] [address] [place] [address] Dr. Dwight Waters MAGNESIUMon 03-02-2023 Magnesium [Mass/Vol] 1.6 mg/dL Critically low 1.8-2.4 [facility] Comment on above: Performed By: #### U RTPCR #### [facility] [address] [place] [address] Dr. Dwight Waters PHOSPHORUSon 03-02-2023 Phosphate [Mass/Vol] 3.6 mg/dL Normal 2.6-4.7 [facility] Comment on above: Performed By: #### U RTPCR #### [facility] [address] [place] [address] Dr. Dwight Waters PROF CHEM 8 (BAS METB)on Anion gap [Moles/Vol] 9.4 mmol/L Normal [facility] Comment on above: Performed By: #### U RTPCR #### [facility] [address] [place] [address] Dr. Dwight Waters Calcium [Mass/Vol] 9.3 mg/dL Normal 8.5-10.[address] [facility] Comment on above: Performed By: #### U RTPCR #### [facility] [address] [place] [address] Dr. Dwight Waters Chloride [Moles/Vol] 108 mmol/L Critically high 98-[address] [facility] Comment on above: Performed By: #### U RTPCR #### [facility] [address] [place] [address] Dr. Dwight Waters CO2 [Moles/Vol] 27.2 mmol/L Normal 21.0-32.0 [facility] Comment on above: Performed By: #### U RTPCR #### [facility] [address] [place] [address] Dr. Dwight Waters Creatinine [Mass/Vol] 1.12 mg/dL Normal 0.70-1.[address] [facility] Comment on above: Performed By: #### U RTPCR #### [facility] [address] [place] [address] Dr. Dwight Waters EGFR-AF GHANAIAN >60 Normal >=[address] [facility] Comment on above: Performed By: #### U RTPCR #### [facility] [address] [place] [address] Dr. Dwight Waters EGFR-NON AF GHANAIAN >60 Normal >=[address] [facility] Comment on above: Performed By: #### U RTPCR #### [facility] [address] [place] [address] Dr. Dwight Waters Glucose [Mass/Vol] 113 mg/dL Critically high 74-106 [facility] Comment on above: Performed By: #### U RTPCR #### [facility] [address] [place] [address] Dr. Dwight Waters Potassium [Moles/Vol] 3.6 mmol/L Normal 3.5-5.1 [facility] Comment on above: Performed By: #### U RTPCR #### [facility] [address] [place] [address] Dr. Dwight Waters Sodium [Moles/Vol] 141 mmol/L Normal 136-145 [facility] Comment on above: Performed By: #### U RTPCR #### [facility] [address] [place] [address] Dr. Dwight Waters Urea nitrogen [Mass/Vol] 14.0 mg/dL Normal 7.0-18.0 [facility] Comment on above: Performed By: #### U RTPCR #### [facility] [address] [place] [address] Dr. Dwight Waters Urea nitrogen/Creatinine [Mass ratio] 12.5 mg/mg Normal [facility] Comment on above: Performed By: #### U RTPCR #### [facility] [address] [place] [address] Dr. Dwight Waters SGOTon 03-02-2023 AST [Catalytic activity/Vol] 20 U/L Normal 15-37 [facility] Comment on above: Performed By: #### U RTPCR #### [facility] [address] [place] [address] Dr. Dwight Waters SGPTon 03-02-2023 ALT [Catalytic activity/Vol] 30 U/L Normal 16-63 [facility] Comment on above: Performed By: #### U RTPCR #### [facility] [address] [place] [address] Dr. Dwight Waters URINE T PROTEIN CREAT RATIOo n 03-02-2023 Protein (U) [Mass/Vol] 10.3 mg/dL Normal <=12.0 [facility] Comment on above: Performed By: #### U RTPCR #### [facility] [address] [place] [address] Dr. Dwight Waters UR PROT CREAT RAT 0.15 Normal [facility] Comment on above: Performed By: #### U RTPCR #### [facility] [address] [place] [address] Dr. Dwight Waters URINE CREAT 68.96 mg/dL Normal 20.00-300.00 [facility] Comment on above: Performed By: #### U RTPCR #### [facility] [address] [place] [address] Dr. Dwight Waters BK VIRUS PCR QUANTon 023 BKV DNA QUANT PCR PLASMA Negative Normal Negative [facility] Comment on above: Result Comment: No B K DNA detected. . The linear range of the assay is 22 - 100,000,000 IU/mL. Performed By: #### C MP #### [facility] [address] [place] [address] Dr. Dwight Waters Log10 BKV DNA Plasma Normal [facility] Comment on above: Performed By: #### C MP #### [facility] [address] [place] [address] Dr. Dwight Waters FK506 (TACROLIMUS) WHOLE BLO ODon 12-31-2022 Tacrolimus (FK506), Blood 5.6 ng/mL Normal 2.0-20.0 [facility] Comment on above: Result Comment: Trou gh (immediately following transplant) 15.0 . Trough (steady state, 2 weeks or more after transplant): 3.0 - 8.0 . Performed by LC-MS/MS technology. Performed By: #### C MP #### [facility] [address] [place] [address] Dr. Dwight Waters ALKALINE PHOSPHAon ALP [Catalytic activity/Vol] 96 U/L Normal 46-[address] [facility] Comment on above: Performed By: #### C BC #### [facility] [address] [place] [address] Dr. Dwight Waters BILIRUBIN CONJUGATED (DIRECT )on 12-29-2022 BILI, CONJUGATED 0.3 mg/dL Critically high 0.0-0.2 [facility] Comment on above: Performed By: #### C BC #### [facility] [address] [place] [address] Dr. Dwight Waters BILIRUBIN TOTALon 12-29-2022 Bilirubin [Mass/Vol] 1.1 mg/dL Critically high 0.2-1.0 [facility] Comment on above: Performed By: #### C BC #### [facility] [address] [place] [address] Dr. Dwight Waters CBC AUTO DIFFon 12-29-2022 BASO # 0.1 103/ul Normal 0.0-0.1 [facility] Comment on above: Performed By: #### C MP #### [facility] [address] [place] [address] Dr. Dwight Waters Basophils/100 WBC (Bld) 0.8 % Normal 0.2-2.0 [facility] Comment on above: Performed By: #### C MP #### [facility] [address] [place] [address] Dr. Dwight Waters EO # 0.2 103/ul Normal 0.0-0.7 [facility] Comment on above: Performed By: #### C MP #### [facility] [address] [place] [address] Dr. Dwight Waters Eosinophils/100 WBC (Bld) 3.0 % Normal 0.9-7.0 [facility] Comment on above: Performed By: #### C MP #### [facility] [address] [place] [address] Dr. Dwight Waters Erythrocyte distribution width (RBC) [Ratio] 12.9 % Normal 11.0-15.[address] [facility] Comment on above: Performed By: #### C MP #### [facility] [address] [place] [address] Dr. Dwight Waters Hematocrit (Bld) [Volume fraction] 46.9 % Normal 42.0-54.0 [facility] Comment on above: Performed By: #### C MP #### [facility] [address] [place] [address] Dr. Dwight Waters Hemoglobin (Bld) [Mass/Vol] 16.1 g/dL Normal 14.0-18.0 [facility] Comment on above: Performed By: #### C MP #### [facility] [address] [place] [address] Dr. Dwight Waters IG # 0.01 10e3/ul Normal 0.00-0.03 [facility] Comment on above: Performed By: #### C MP #### [facility] [address] [place] [address] Dr. Dwight Waters IG % 0.2 % Normal 0.0-0.5 [facility] Comment on above: Performed By: #### C MP #### [facility] [address] [place] [address] Dr. Dwight Waters LYMPH # 1.8 103/ul Normal 1.2-3.8 [facility] Comment on above: Performed By: #### C MP #### [facility] [address] [place] [address] Dr. Dwight Waters Lymphocytes/100 WBC (Bld) 27.9 % Normal 20.5-60.0 [facility] Comment on above: Performed By: #### C MP #### [facility] [address] [place] [address] Dr. Dwight Waters MANUAL DIFF REQ NO Normal [facility] Comment on above: Performed By: #### C MP #### [facility] [address] [place] [address] Dr. Dwight Waters MCH (RBC) [Entitic mass] 28.5 pg Normal 25.9-34.0 [facility] Comment on above: Performed By: #### C MP #### [facility] [address] [place] [address] Dr. Dwight Waters MCHC (RBC) [Mass/Vol] 34.3 g/dL Normal 29.9-35.2 [facility] Comment on above: Performed By: #### C MP #### [facility] [address] [place] [address] Dr. Dwight Waters MCV (RBC) [Entitic vol] 83.2 fL Normal 80.0-94.0 [facility] Comment on above: Performed By: #### C MP #### [facility] [address] [address] [address] Dwight Waters MONO # 0.5 103/ul Normal 0.3-0.8 [facility] Comment on above: Performed By: #### C MP #### [facility] [address] [address] [address] Dwight Waters Monocytes/100 WBC (Bld) 8.1 % Normal 1.7-12.0 [facility] Comment on above: Performed By: #### C MP #### [facility] [address] [place] [address] Dr. Dwight Waters NEUT # 3.8 103/ul Normal 1.4-6.5 [facility] Comment on above: Performed By: #### C MP #### [facility] [address] [place] [address] Dr. Dwight Waters Neutrophils/100 WBC (Bld) 60.0 % Normal 43.0-75.0 [facility] Comment on above: Performed By: #### C MP #### [facility] [address] [place] [address] Dr. Dwight Waters Platelet mean volume (Bld) [Entitic vol] 9.2 fL Critically low 9.5-13.5 [facility] Comment on above: Performed By: #### C MP #### [facility] [address] [place] [address] Dr. Dwight Waters PLT 225 103/ul Normal 150-[address] [facility] Comment on above: Performed By: #### C MP #### [facility] [address] [place] [address] Dr. Dwight Waters RBC 5.64 106/ul Normal 4.70-6.[address] [facility] Comment on above: Performed By: #### C MP #### [facility] [address] [place] [address] Dr. Dwight Waters WBC 6.3 103/ul Normal 4.0-11.[address] [facility] Comment on above: Performed By: #### C MP #### [facility] [address] [address] [address] Dwight Waters GGTon 12-29-2022 Gamma glutamyl transferase [Catalytic activity/Vol] 24 U/L Normal 15-85 [facility] Comment on above: Performed By: #### C MP #### [facility] [address] [place] [address] Dr. Dwight Waters LIPID PROFILEon 12-29-2022 CHOL-HDL RATIO NORM SEE BELOW Normal [facility] Comment on above: Result Comment: 3.3 - 4.4 LOW RISK 4.4 - 7.1 AVERAGE RISK 7.1 - 11.0 MODERATE RISK >11.0 HIGH RISK Performed By: #### U RTPCR #### [facility] [address] [place] [address] Dr. Dwight Waters Cholesterol [Mass/Vol] 87 mg/dL Normal <=200 [facility] Comment on above: Performed By: #### U RTPCR #### [facility] [address] [place] [address] Dr. Dwight Waters Cholesterol in HDL [Mass/Vol] 44 mg/dL Normal 40-60 [facility] Comment on above: Performed By: #### U RTPCR #### [facility] [address] [place] [address] Dr. Dwight Waters Cholesterol in LDL [Mass/Vol] 33.0 mg/dL Normal [facility] Comment on above: Performed By: #### U RTPCR #### [facility] [address] [place] [address] Dr. Dwight Waters Cholesterol.total/Ch olesterol in HDL [Mass ratio] 2.0 {ratio} Normal [facility] Comment on above: Performed By: #### U RTPCR #### [facility] [address] [place] [address] Dr. Dwight Waters HDL NORMAL > or = 60 mg/dl - LO W CARDIOVASCULAR RISK <40 mg/dl - HIGH CARDIOVASCULAR RISK Normal [facility] Comment on above: Performed By: #### U RTPCR #### [facility] [address] [place] [address] Dr. Dwight Waters LDL CALC NORMAL SEE BELOW Normal [facility] Comment on above: Result Comment: <100 mg/dl OPTIMAL 100 - 129 mg/dl NEAR OR ABOVE OPTIMAL 130 - 159 mg/dl BORDERLINE HIGH 160 - 189 mg/dl HIGH >190 mg/dl VERY HIGH Performed By: #### U RTPCR #### [facility] [address] [address] [address] Dwight Waters Triglyceride [Mass/Vol] 50 mg/dL Normal <=[address] [facility] Comment on above: Performed By: #### U RTPCR #### [facility] [address] [address] [address] Dwight Waters VLDL CALC 10.0 mg/dL Normal [facility] Comment on above: Performed By: #### U RTPCR #### [facility] [address] [place] [address] Dr. Dwight Waters MAGNESIUMon 12-29-2022 Magnesium [Mass/Vol] 1.6 mg/dL Critically low 1.8-2.4 [facility] Comment on above: Performed By: #### C BC #### [facility] [address] [address] [address] Dwight Waters RENAL FUNCTION PANELon 12-29 Albumin [Mass/Vol] 3.9 g/dL Normal 3.4-5.0 [facility] Comment on above: Performed By: #### C BC #### [facility] [address] [place] [address] Dr. Dwight Waters Calcium [Mass/Vol] 9.2 mg/dL Normal 8.5-10.[address] [facility] Comment on above: Performed By: #### C BC #### [facility] [address] [address] [address] Dwight Waters Chloride [Moles/Vol] 109 mmol/L Critically high 98-[address] [facility] Comment on above: Performed By: #### C BC #### [facility] [address] [address] [address] Dwight Waters CO2 [Moles/Vol] 27.0 mmol/L Normal 21.0-32.[address] [facility] Comment on above: Performed By: #### C BC #### [facility] [address] [address] [address] Dwight Waters Creatinine [Mass/Vol] 1.02 mg/dL Normal 0.70-1.30 [facility] Comment on above: Performed By: #### C BC #### [facility] [address] [address] [address] Dwight Waters EGFR-AF GHANAIAN >60 Normal >=60 [facility] Comment on above: Performed By: #### C BC #### [facility] [address] [address] [address] Dwight Waters EGFR-NON AF GHANAIAN >60 Normal >=60 [facility] Comment on above: Performed By: #### C BC #### [facility] [address] [place] [address] Dr. Dwight Waters Glucose [Mass/Vol] 117 mg/dL Critically high 74-106 [facility] Comment on above: Performed By: #### C BC #### [facility] [address] [place] [address] Dr. Dwight Waters Phosphate [Mass/Vol] 3.2 mg/dL Normal 2.6-4.7 [facility] Comment on above: Performed By: #### C BC #### [facility] [address] [place] [address] Dr. Dwight Waters Potassium [Moles/Vol] 4.1 mmol/L Normal 3.5-5.1 [facility] Comment on above: Performed By: #### C BC #### [facility] [address] [place] [address] Dr. Dwight Waters Sodium [Moles/Vol] 144 mmol/L Normal 136-145 [facility] Comment on above: Performed By: #### C BC #### [facility] [address] [place] [address] Dr. Dwight Waters Urea nitrogen [Mass/Vol] 13.0 mg/dL Normal 7.0-18.0 [facility] Comment on above: Performed By: #### C BC #### [facility] [address] [place] [address] Dr. Dwight Waters SGOTon 12-29-2022 AST [Catalytic activity/Vol] 21 U/L Normal 15-37 [facility] Comment on above: Performed By: #### C BC #### [facility] [address] [place] [address] Dr. Dwight Waters SGPTon 12-29-2022 ALT [Catalytic activity/Vol] 32 U/L Normal 16-63 [facility] Comment on above: Performed By: #### C BC #### [facility] [address] [place] [address] Dr. Dwight Waters URINE T PROTEIN CREAT RATIOo n 12-29-2022 Protein (U) [Mass/Vol] 14.3 mg/dL Critically high <=12.0 [facility] Comment on above: Performed By: #### U RTPCR #### [facility] [address] [place] [address] Dr. Dwight Waters UR PROT CREAT RAT 0.17 Normal [facility] Comment on above: Performed By: #### U RTPCR #### [facility] [address] [place] [address] Dr. Dwight Waters URINE CREAT 86.58 mg/dL Normal 20.00-300.00 [facility] Comment on above: Performed By: #### U RTPCR #### [facility] [address] [place] [address] Dr. Dwight Waters FK506 (TACROLIMUS) WHOLE BLO ODon 11-06-2022 Tacrolimus (FK506), Blood 4.9 ng/mL Normal 2.0-20.0 [facility] Comment on above: Result Comment: Trou gh (immediately following transplant) 15.0 . Trough (steady state, 2 weeks or more after transplant): 3.0 - 8.0 . Performed by LC-MS/MS technology. Performed By: #### U RTPCR #### [facility] [address] [place] [address] Dr. Dwight Waters ALKALINE PHOSPHAon ALP [Catalytic activity/Vol] 86 U/L Normal 46-[address] [facility] Comment on above: Performed By: #### U RTPCR #### [facility] [address] [place] [address] Dr. Dwight Waters BILIRUBIN CONJUGATED (DIRECT )on 11-04-2022 BILI, CONJUGATED 0.2 mg/dL Normal 0.0-0.2 [facility] Comment on above: Performed By: #### U RTPCR #### [facility] [address] [place] [address] Dr. Dwight Waters BILIRUBIN TOTALon 11-04-2022 Bilirubin [Mass/Vol] 0.8 mg/dL Normal 0.2-1.0 [facility] Comment on above: Performed By: #### U RTPCR #### [facility] [address] [place] [address] Dr. Dwight Waters CBC AUTO DIFFon 11-04-2022 BASO # 0.1 103/ul Normal 0.0-0.1 [facility] Comment on above: Performed By: #### U RTPCR #### [facility] [address] [place] [address] Dr. Dwight Waters Basophils/100 WBC (Bld) 0.9 % Normal 0.2-2.0 [facility] Comment on above: Performed By: #### U RTPCR #### [facility] [address] [place] [address] Dr. Dwight Waters EO # 0.2 103/ul Normal 0.0-0.7 [facility] Comment on above: Performed By: #### U RTPCR #### [facility] [address] [place] [address] Dr. Dwight Waters Eosinophils/100 WBC (Bld) 3.7 % Normal 0.9-7.0 [facility] Comment on above: Performed By: #### U RTPCR #### [facility] [address] [place] [address] Dr. Dwight Waters Erythrocyte distribution width (RBC) [Ratio] 12.9 % Normal 11.0-15.0 [facility] Comment on above: Performed By: #### U RTPCR #### [facility] [address] [place] [address] Dr. Dwight Waters Hematocrit (Bld) [Volume fraction] 48.3 % Normal 42.0-54.0 [facility] Comment on above: Performed By: #### U RTPCR #### [facility] [address] [place] [address] Dr. Dwight Waters Hemoglobin (Bld) [Mass/Vol] 15.6 g/dL Normal 14.0-18.0 [facility] Comment on above: Performed By: #### U RTPCR #### [facility] [address] [place] [address] Dr. Dwight Waters IG # 0.01 10e3/ul Normal 0.00-0.03 [facility] Comment on above: Performed By: #### U RTPCR #### [facility] [address] [place] [address] Dr. Dwight Waters IG % 0.2 % Normal 0.0-0.5 [facility] Comment on above: Performed By: #### U RTPCR #### [facility] [address] [place] [address] Dr. Dwight Waters LYMPH # 1.9 103/ul Normal 1.2-3.8 [facility] Comment on above: Performed By: #### U RTPCR #### [facility] [address] [place] [address] Dr. Dwight Waters Lymphocytes/100 WBC (Bld) 33.0 % Normal 20.5-60.0 [facility] Comment on above: Performed By: #### U RTPCR #### [facility] [address] [place] [address] Dr. Dwight Waters MANUAL DIFF REQ NO Normal [facility] Comment on above: Performed By: #### U RTPCR #### [facility] [address] [place] [address] Dr. Dwight Waters MCH (RBC) [Entitic mass] 27.6 pg Normal 25.9-34.0 [facility] Comment on above: Performed By: #### U RTPCR #### [facility] [address] [place] [address] Dr. Dwight Waters MCHC (RBC) [Mass/Vol] 32.3 g/dL Normal 29.9-35.2 [facility] Comment on above: Performed By: #### U RTPCR #### [facility] [address] [place] [address] Dr. Dwight Waters MCV (RBC) [Entitic vol] 85.5 fL Normal 80.0-94.0 [facility] Comment on above: Performed By: #### U RTPCR #### [facility] [address] [place] [address] Dr. Dwight Waters MONO # 0.5 103/ul Normal 0.3-0.8 [facility] Comment on above: Performed By: #### U RTPCR #### [facility] [address] [place] [address] Dr. Dwight Waters Monocytes/100 WBC (Bld) 8.8 % Normal 1.7-12.0 [facility] Comment on above: Performed By: #### U RTPCR #### [facility] [address] [place] [address] Dr. Dwight Waters NEUT # 3.1 103/ul Normal 1.4-6.5 [facility] Comment on above: Performed By: #### U RTPCR #### [facility] [address] [place] [address] Dr. Dwight Waters Neutrophils/100 WBC (Bld) 53.4 % Normal 43.0-75.0 [facility] Comment on above: Performed By: #### U RTPCR #### [facility] [address] [place] [address] Dr. Dwight Waters Platelet mean volume (Bld) [Entitic vol] 9.2 fL Critically low 9.5-13.5 [facility] Comment on above: Performed By: #### U RTPCR #### [facility] [address] [place] [address] Dr. Dwight Waters PLT 255 103/ul Normal 150-[address] [facility] Comment on above: Performed By: #### U RTPCR #### [facility] [address] [place] [address] Dr. Dwight Waters RBC 5.65 106/ul Normal 4.70-6.[address] [facility] Comment on above: Performed By: #### U RTPCR #### [facility] [address] [place] [address] Dr. Dwight Waters WBC 5.7 103/ul Normal 4.0-11.[address] [facility] Comment on above: Performed By: #### U RTPCR #### [facility] [address] [place] [address] Dr. Dwight Waters GGTon 11-04-2022 Gamma glutamyl transferase [Catalytic activity/Vol] 22 U/L Normal 15-[address] [facility] Comment on above: Performed By: #### U RTPCR #### [facility] [address] [place] [address] Dr. Dwight Waters MAGNESIUMon 11-04-2022 Magnesium [Mass/Vol] 1.8 mg/dL Normal 1.8-2.[address] [facility] Comment on above: Performed By: #### U RTPCR #### [facility] [address] [place] [address] Dr. Dwight Waters RENAL FUNCTION PANELon 11-04 Albumin [Mass/Vol] 3.8 g/dL Normal 3.4-5.[address] [facility] Comment on above: Performed By: #### U RTPCR #### [facility] [address] [place] [address] Dr. Dwight Waters Calcium [Mass/Vol] 9.3 mg/dL Normal 8.5-10.[address] [facility] Comment on above: Performed By: #### U RTPCR #### [facility] [address] [place] [address] Dr. Dwight Waters Chloride [Moles/Vol] 107 mmol/L Normal 98-[address] [facility] Comment on above: Performed By: #### U RTPCR #### [facility] [address] [place] [address] Dr. Dwight Waters CO2 [Moles/Vol] 29.2 mmol/L Normal 21.0-32.0 [facility] Comment on above: Performed By: #### U RTPCR #### [facility] [address] [address] [address] Dwight Waters Creatinine [Mass/Vol] 1.07 mg/dL Normal 0.70-1.30 [facility] Comment on above: Performed By: #### U RTPCR #### [facility] [address] [place] [address] Dr. Dwight Waters EGFR-AF GHANAIAN >60 Normal >=60 [facility] Comment on above: Performed By: #### U RTPCR #### [facility] [address] [place] [address] Dr. Dwight Waters EGFR-NON AF GHANAIAN >60 Normal >=60 [facility] Comment on above: Performed By: #### U RTPCR #### [facility] [address] [place] [address] Dr. Dwight Waters Glucose [Mass/Vol] 106 mg/dL Normal 74-106 [facility] Comment on above: Performed By: #### U RTPCR #### [facility] [address] [place] [address] Dr. Dwight Waters Phosphate [Mass/Vol] 2.8 mg/dL Normal 2.6-4.7 [facility] Comment on above: Performed By: #### U RTPCR #### [facility] [address] [place] [address] Dr. Dwight Waters Potassium [Moles/Vol] 4.1 mmol/L Normal 3.5-5.1 [facility] Comment on above: Performed By: #### U RTPCR #### [facility] [address] [place] [address] Dr. Dwight Waters Sodium [Moles/Vol] 143 mmol/L Normal 136-[address] [facility] Comment on above: Performed By: #### U RTPCR #### [facility] [address] [place] [address] Dr. Dwight Waters Urea nitrogen [Mass/Vol] 12.0 mg/dL Normal 7.0-18.0 [facility] Comment on above: Performed By: #### U RTPCR #### [facility] [address] [place] [address] Dr. Dwight OLVERASelinsgroven 11-04-2022 AST [Catalytic activity/Vol] 19 U/L Normal 15-[address] [facility] Comment on above: Performed By: #### U RTPCR #### [facility] [address] [place] [address] Dr. Dwight Waters SGPTon 11-04-2022 ALT [Catalytic activity/Vol] 28 U/L Normal 16-[address] [facility] Comment on above: Performed By: #### U RTPCR #### [facility] [address] [place] [address] Dr. Dwight Waters URINE T PROTEIN CREAT RATIOo n 11-04-2022 Protein (U) [Mass/Vol] 10.7 mg/dL Normal <=12.0 [facility] Comment on above: Performed By: #### U RTPCR #### [facility] [address] [place] [address] Dr. Dwight Waters UR PROT CREAT RAT 0.[address] [facility] Comment on above: Performed By: #### U RTPCR #### [facility] [address] [place] [address] Dr. Dwight Waters URINE CREAT 84.50 mg/dL Normal 20.00-300.00 [facility] Comment on above: Performed By: #### U RTPCR #### [facility] [address] [place] [address] Dr. Dwight Waters FK506 (TACROLIMUS) WHOLE BLO ODon 09-18-2022 Tacrolimus (FK506), Blood 4.6 ng/mL Normal 2.0-20.0 [facility] Comment on above: Result Comment: Trou gh (immediately following transplant) 15.0 . Trough (steady state, 2 weeks or more after transplant): 3.0 - 8.0 . Performed by LC-MS/MS technology. Performed By: #### U RTPCR #### [facility] [address] [place] [address] Dr. Dwight Waters BK VIRUS PCR QUANTon 022 BKV DNA QUANT PCR PLASMA Negative Normal Negative [facility] Comment on above: Result Comment: No B K DNA detected. . The linear range of the assay is 22 - 100,000,000 IU/mL. Performed By: #### U RTPCR #### [facility] [address] [place] [address] Dr. Dwight Waters Log10 BKV DNA Plasma Normal [facility] Comment on above: Performed By: #### U RTPCR #### [facility] [address] [place] [address] Dr. Dwight Waters ALKALINE PHOSPHAon ALP [Catalytic activity/Vol] 92 U/L Normal 46-[address] [facility] Comment on above: Performed By: #### U RTPCR #### [facility] [address] [place] [address] Dr. Dwight Waters BILIRUBIN CONJUGATED (DIRECT )on 09-15-2022 BILI, CONJUGATED 0.3 mg/dL Critically high 0.0-0.2 [facility] Comment on above: Performed By: #### U RTPCR #### [facility] [address] [place] [address] Dr. Dwight Waters BILIRUBIN TOTALon 09-15-2022 Bilirubin [Mass/Vol] 1.1 mg/dL Critically high 0.2-1.0 [facility] Comment on above: Performed By: #### U RTPCR #### [facility] [address] [place] [address] Dr. Dwight Waters CBC AUTO DIFFon 09-15-2022 BASO # 0.1 103/ul Normal 0.0-0.1 [facility] Comment on above: Performed By: #### C BC #### [facility] [address] [place] [address] Dr. wDight Waters Basophils/100 WBC (Bld) 0.8 % Normal 0.2-2.[address] [facility] Comment on above: Performed By: #### C BC #### [facility] [address] [place] [address] Dr. Dwight Waters EO # 0.2 103/ul Normal 0.0-0.7 [facility] Comment on above: Performed By: #### C BC #### [facility] [address] [place] [address] Dr. Dwight Waters Eosinophils/100 WBC (Bld) 3.5 % Normal 0.9-7.0 [facility] Comment on above: Performed By: #### C BC #### [facility] [address] [place] [address] Dr. Dwight Waters Erythrocyte distribution width (RBC) [Ratio] 13.0 % Normal 11.0-15.0 [facility] Comment on above: Performed By: #### C BC #### [facility] [address] [place] [address] Dr. Dwight Waters Hematocrit (Bld) [Volume fraction] 50.0 % Normal 42.0-54.0 [facility] Comment on above: Performed By: #### C BC #### [facility] [address] [place] [address] Dr. Dwight Waters Hemoglobin (Bld) [Mass/Vol] 16.0 g/dL Normal 14.0-18.0 [facility] Comment on above: Performed By: #### C BC #### [facility] [address] [place] [address] Dr. Dwight Waters IG # 0.02 10e3/ul Normal 0.00-0.03 [facility] Comment on above: Performed By: #### C BC #### [facility] [address] [place] [address] Dr. Dwight Waters IG % 0.3 % Normal 0.0-0.5 [facility] Comment on above: Performed By: #### C BC #### [facility] [address] [place] [address] Dr. Dwight Waters LYMPH # 1.8 103/ul Normal 1.2-3.[address] [facility] Comment on above: Performed By: #### C BC #### [facility] [address] [place] [address] Dr. Dwight Waters Lymphocytes/100 WBC (Bld) 26.5 % Normal 20.5-60.0 [facility] Comment on above: Performed By: #### C BC #### [facility] [address] [place] [address] Dr. Dwight Waters MANUAL DIFF REQ NO Normal [facility] Comment on above: Performed By: #### C BC #### [facility] [address] [place] [address] Dr. Dwight Waters MCH (RBC) [Entitic mass] 28.1 pg Normal 25.9-34.0 [facility] Comment on above: Performed By: #### C BC #### [facility] [address] [place] [address] Dr. Dwight Waters MCHC (RBC) [Mass/Vol] 32.0 g/dL Normal 29.9-35.2 [facility] Comment on above: Performed By: #### C BC #### [facility] [address] [place] [address] Dr. Dwight Waters MCV (RBC) [Entitic vol] 87.9 fL Normal 80.0-94.0 [facility] Comment on above: Performed By: #### C BC #### [facility] [address] [place] [address] Dr. Dwight Waters MONO # 0.5 103/ul Normal 0.3-0.8 [facility] Comment on above: Performed By: #### C BC #### [facility] [address] [place] [address] Dr. Dwight Waters Monocytes/100 WBC (Bld) 8.1 % Normal 1.7-12.0 [facility] Comment on above: Performed By: #### C BC #### [facility] [address] [place] [address] Dr. Dwight Waters NEUT # 4.0 103/ul Normal 1.4-6.[address] [facility] Comment on above: Performed By: #### C BC #### [facility] [address] [place] [address] Dr. Dwight Waters Neutrophils/100 WBC (Bld) 60.8 % Normal 43.0-75.0 [facility] Comment on above: Performed By: #### C BC #### [facility] [address] [place] [address] Dr. Dwight Waters Platelet mean volume (Bld) [Entitic vol] 9.4 fL Critically low 9.5-13.5 [facility] Comment on above: Performed By: #### C BC #### [facility] [address] [place] [address] Dr. Dwight Waters PLT 265 103/ul Normal 150-[address] [facility] Comment on above: Performed By: #### C BC #### [facility] [address] [place] [address] Dr. Dwight Waters RBC 5.69 106/ul Normal 4.70-6.[address] [facility] Comment on above: Performed By: #### C BC #### [facility] [address] [place] [address] Dr. Dwight Waters WBC 6.6 103/ul Normal 4.0-11.[address] [facility] Comment on above: Performed By: #### C BC #### [facility] [address] [place] [address] Dr. Dwight Waters GGTon 09-15-2022 Gamma glutamyl transferase [Catalytic activity/Vol] 23 U/L Normal 15-85 [facility] Comment on above: Performed By: #### U RTPCR #### [facility] [address] [place] [address] Dr. Dwight Waters MAGNESIUMon 09-15-2022 Magnesium [Mass/Vol] 1.8 mg/dL Normal 1.8-2.4 [facility] Comment on above: Performed By: #### U RTPCR #### [facility] [address] [place] [address] Dr. Dwight Waters RENAL FUNCTION PANELon 09-15 Albumin [Mass/Vol] 4.1 g/dL Normal 3.4-5.[address] [facility] Comment on above: Performed By: #### C BC #### [facility] [address] [place] [address] Dr. Dwight Waters Calcium [Mass/Vol] 9.3 mg/dL Normal 8.5-10.1 [facility] Comment on above: Performed By: #### C BC #### [facility] [address] [place] [address] Dr. Dwight Waters Chloride [Moles/Vol] 107 mmol/L Normal 98-107 [facility] Comment on above: Performed By: #### C BC #### [facility] [address] [place] [address] Dr. Dwight Waters CO2 [Moles/Vol] 25.6 mmol/L Normal 21.0-32.0 [facility] Comment on above: Performed By: #### C BC #### [facility] [address] [address] [address] Dwight Waters Creatinine [Mass/Vol] 1.01 mg/dL Normal 0.70-1.30 [facility] Comment on above: Performed By: #### C BC #### [facility] [address] [place] [address] Dr. Dwight Waters EGFR-AF GHANAIAN >60 Normal >=60 [facility] Comment on above: Performed By: #### C BC #### [facility] [address] [place] [address] Dr. Dwight Waters EGFR-NON AF GHANAIAN >60 Normal >=60 [facility] Comment on above: Performed By: #### C BC #### [facility] [address] [place] [address] Dr. Dwight Waters Glucose [Mass/Vol] 119 mg/dL Critically high 74-106 [facility] Comment on above: Performed By: #### C BC #### [facility] [address] [place] [address] Dr. Dwight Waters Phosphate [Mass/Vol] 2.8 mg/dL Normal 2.6-4.7 [facility] Comment on above: Performed By: #### C BC #### [facility] [address] [place] [address] Dr. Dwight Waters Potassium [Moles/Vol] 4.0 mmol/L Normal 3.5-5.[address] [facility] Comment on above: Performed By: #### C BC #### [facility] [address] [place] [address] Dr. Dwight Waters Sodium [Moles/Vol] 141 mmol/L Normal 136-145 [facility] Comment on above: Performed By: #### C BC #### [facility] [address] [place] [address] Dr. Dwight Waters Urea nitrogen [Mass/Vol] 15.0 mg/dL Normal 7.0-18.0 [facility] Comment on above: Performed By: #### C BC #### [facility] [address] [place] [address] Dr. Dwight OLVERAOTon 09-15-2022 AST [Catalytic activity/Vol] 18 U/L Normal 15-[address] [facility] Comment on above: Performed By: #### U RTPCR #### [facility] [address] [place] [address] Dr. Dwight OLVERAPTon 09-15-2022 ALT [Catalytic activity/Vol] 32 U/L Normal 16-63 [facility] Comment on above: Performed By: #### C BC #### [facility] [address] [place] [address] Dr. Dwight Waters URINE T PROTEIN CREAT RATIOo n 09-15-2022 Protein (U) [Mass/Vol] 14.1 mg/dL Critically high <=12.0 [facility] Comment on above: Performed By: #### U RTPCR #### [facility] [address] [place] [address] Dr. Dwight Waters UR PROT CREAT RAT 0.[address] Normal [address] [facility] Comment on above: Performed By: #### U RTPCR #### [facility] [address] [place] [address] Dr. Dwight Waters URINE CREAT 98.89 mg/dL Normal 20.00-300.[address] [facility] Comment on above: Performed By: #### U RTPCR #### [facility] [address] [place] [address] Dr. Dwight Waters US CAROTID ART BILon [...] 2022-08-28 13:[address] [facility] FK506 (TACROLIMUS) WHOLE BLO ODon 08-17-2022 Tacrolimus (FK506), Blood 9.9 ng/mL Normal 2.0-20.[address] [facility] Comment on above: Result Comment: Trou gh (immediately following transplant) 15.0 . Trough (steady state, 2 weeks or more after transplant): 3.0 - 8.0 . Performed by LC-MS/MS technology. Performed By: #### F [id number] #### [facility] [address] [place] [address] Dr. Dwight Waters BK VIRUS PCR QUANTon 022 BKV DNA QUANT PCR PLASMA Negative Normal Negative [facility] Comment on above: Result Comment: No B K DNA detected. . The linear range of the assay is 22 - 100,000,000 IU/mL. Performed By: #### U RTPCR #### [facility] [address] [place] [address] Dr. Dwight Waters Log10 BKV DNA Plasma Normal [facility] Comment on above: Performed By: #### U RTPCR #### [facility] [address] [place] [address] Dr. Dwight Waters ALBUMINon 08-14-2022 Albumin [Mass/Vol] 4.2 g/dL Normal 3.4-5.[address] [facility] Comment on above: Performed By: #### F [id number] #### [facility] [address] [place] [address] Dr. Dwight Waters ALKALINE PHOSPHAon ALP [Catalytic activity/Vol] 92 U/L Normal 46-[address] [facility] Comment on above: Performed By: #### C BC #### [facility] [address] [place] [address] Dr. Dwight Waters BILIRUBIN CONJUGATED (DIRECT )on 08-14-2022 BILI, CONJUGATED 0.3 mg/dL Critically high 0.0-0.[address] [facility] Comment on above: Performed By: #### F [id number] #### [facility] [address] [place] [address] Dr. Dwight Waters BILIRUBIN TOTALon 08-14-2022 Bilirubin [Mass/Vol] 1.5 mg/dL Critically high 0.2-1.[address] [facility] Comment on above: Performed By: #### F [id number] #### [facility] [address] [place] [address] Dr. Dwight Waters BUNon 08-14-2022 Urea nitrogen [Mass/Vol] 11.0 mg/dL Normal 7.0-18.[address] [facility] Comment on above: Performed By: #### C BC #### [facility] [address] [place] [address] Dr. Dwight Waters CALCIUMon 08-14-2022 Calcium [Mass/Vol] 9.4 mg/dL Normal 8.5-10.[address] [facility] Comment on above: Performed By: #### F [id number] #### [facility] [address] [place] [address] Dr. Dwight Waters CBC AUTO DIFFon 08-14-2022 BASO # 0.0 103/ul Normal 0.0-0.1 [facility] Comment on above: Performed By: #### C MP #### [facility] [address] [place] [address] Dr. Dwight Waters Basophils/100 WBC (Bld) 0.5 % Normal 0.2-2.[address] [facility] Comment on above: Performed By: #### C MP #### [facility] [address] [place] [address] Dr. Dwight Waters EO # 0.2 103/ul Normal 0.0-0.[address] [facility] Comment on above: Performed By: #### C MP #### [facility] [address] [place] [address] Dr. Dwight Waters Eosinophils/100 WBC (Bld) 2.6 % Normal 0.9-7.[address] [facility] Comment on above: Performed By: #### C MP #### [facility] [address] [place] [address] Dr. Dwight Waters Erythrocyte distribution width (RBC) [Ratio] 13.1 % Normal 11.0-15.0 [facility] Comment on above: Performed By: #### C MP #### [facility] [address] [place] [address] Dr. Dwight Waters Hematocrit (Bld) [Volume fraction] 47.0 % Normal 42.0-54.0 [facility] Comment on above: Performed By: #### C MP #### [facility] [address] [place] [address] Dr. Dwight Waters Hemoglobin (Bld) [Mass/Vol] 15.3 g/dL Normal 14.0-18.0 [facility] Comment on above: Performed By: #### C MP #### [facility] [address] [place] [address] Dr. Dwight Waters IG # 0.01 10e3/ul Normal 0.00-0.03 [facility] Comment on above: Performed By: #### C MP #### [facility] [address] [place] [address] Dr. Dwight Waters IG % 0.1 % Normal 0.0-0.5 [facility] Comment on above: Performed By: #### C MP #### [facility] [address] [place] [address] Dr. Diwght Waters LYMPH # 2.3 103/ul Normal 1.2-3.[address] [facility] Comment on above: Performed By: #### C MP #### [facility] [address] [place] [address] Dr. Dwight Waters Lymphocytes/100 WBC (Bld) 29.8 % Normal 20.5-60.0 [facility] Comment on above: Performed By: #### C MP #### [facility] [address] [place] [address] Dr. Dwight Waters MANUAL DIFF REQ NO Normal [facility] Comment on above: Performed By: #### C MP #### [facility] [address] [place] [address] Dr. Dwight Waters MCH (RBC) [Entitic mass] 28.2 pg Normal 25.9-34.[address] [facility] Comment on above: Performed By: #### C MP #### [facility] [address] [place] [address] Dr. Dwight Wtaers MCHC (RBC) [Mass/Vol] 32.6 g/dL Normal 29.9-35.[address] [facility] Comment on above: Performed By: #### C MP #### [facility] [address] [place] [address] Dr. Dwight Waters MCV (RBC) [Entitic vol] 86.7 fL Normal 80.0-94.[address] [facility] Comment on above: Performed By: #### C MP #### [facility] [address] [place] [address] Dr. Dwight Waters MONO # 0.7 103/ul Normal 0.3-0.[address] [facility] Comment on above: Performed By: #### C MP #### [facility] [address] [place] [address] Dr. Dwight Waters Monocytes/100 WBC (Bld) 8.5 % Normal 1.7-12.[address] [facility] Comment on above: Performed By: #### C MP #### [facility] [address] [place] [address] Dr. Dwight Waters NEUT # 4.5 103/ul Normal 1.4-6.[address] [facility] Comment on above: Performed By: #### C MP #### [facility] [address] [place] [address] Dr. Dwight Waters Neutrophils/100 WBC (Bld) 58.5 % Normal 43.0-75.[address] [facility] Comment on above: Performed By: #### C MP #### [facility] [address] [place] [address] Dr. Dwight Waters Platelet mean volume (Bld) [Entitic vol] 9.7 fL Normal 9.5-13.[address] [facility] Comment on above: Performed By: #### C MP #### [facility] [address] [place] [address] Dr. Dwight Waters PLT 266 103/ul Normal 150-[address] [facility] Comment on above: Performed By: #### C MP #### [facility] [address] [place] [address] Dr. Dwight Waters RBC 5.42 106/ul Normal 4.70-6.[address] [facility] Comment on above: Performed By: #### C MP #### [facility] [address] [place] [address] Dr. Dwight Waters WBC 7.6 103/ul Normal 4.0-11.[address] [facility] Comment on above: Performed By: #### C MP #### [facility] [address] [place] [address] Dr. Dwight Waters CHLORIDEon 08-14-2022 Chloride [Moles/Vol] 104 mmol/L Normal 98-[address] [facility] Comment on above: Performed By: #### C BC #### [facility] [address] [place] [address] Dr. Dwight Waters CO2on 08-14-2022 CO2 [Moles/Vol] 27.9 mmol/L Normal 21.0-32.[address] [facility] Comment on above: Performed By: #### C BC #### [facility] [address] [place] [address] Dr. Dwight Waters CREATININEon 08-14-2022 Creatinine [Mass/Vol] 1.08 mg/dL Normal 0.70-1.[address] [facility] Comment on above: Performed By: #### C BC #### [facility] [address] [place] [address] Dr. Dwight Waters EGFR-AF GHANAIAN >60 Normal >=[address] [facility] Comment on above: Performed By: #### C BC #### [facility] [address] [place] [address] Dr. Dwight Waters EGFR-NON AF GHANAIAN >60 Normal >=[address] [facility] Comment on above: Performed By: #### C BC #### [facility] [address] [place] [id number] Dr. Dwight Waters GGTon 08-14-2022 Gamma glutamyl transferase [Catalytic activity/Vol] 24 U/L Normal 15-85 [facility] Comment on above: Performed By: #### F [id number] #### [facility] [address] [place] [address] Dr. Dwight Waters GLUCOSE BLOODon 08-14-2022 Glucose [Mass/Vol] 111 mg/dL Critically high 74-106 T [facility] Comment on above: Performed By: #### C BC #### [facility] [address] [place] [address] Dr. Dwight Waters MAGNESIUMon 08-14-2022 Magnesium [Mass/Vol] 1.4 mg/dL Critically low 1.8-2.4 [facility] Comment on above: Performed By: #### C BC #### [facility] [address] [place] [address] Dr. Dwight Waters NAon 08-14-2022 Sodium [Moles/Vol] 140 mmol/L Normal 136-145 [facility] Comment on above: Performed By: #### F [id number] #### [facility] [address] [place] [address] Dr. Dwight Waters PHOSPHORUSon 08-14-2022 Phosphate [Mass/Vol] 3.1 mg/dL Normal 2.6-4.7 [facility] Comment on above: Performed By: #### C BC #### [facility] [address] [place] [address] Dr. Dwight Waters POTASSIUMon 08-14-2022 Potassium [Moles/Vol] 3.5 mmol/L Normal 3.5-5.1 [facility] Comment on above: Performed By: #### C BC #### [facility] [address] [place] [address] Dr. Dwight Waters SGOTon 08-14-2022 AST [Catalytic activity/Vol] 17 U/L Normal 15-37 [facility] Comment on above: Performed By: #### F [id number] #### [facility] [address] [place] [address] Dr. Dwight Waters SGPTon 08-14-2022 ALT [Catalytic activity/Vol] 22 U/L Normal 16-63 [facility] Comment on above: Performed By: #### F [id number] #### [facility] [address] [place] [address] Dr. Dwight Waters URINE T PROTEIN CREAT RATIOo n 08-14-2022 Protein (U) [Mass/Vol] 10.7 mg/dL Normal <=12.0 [facility] Comment on above: Performed By: #### F [id number] #### [facility] [address] [place] [address] Dr. Dwight Waters UR PROT CREAT RAT 0.10 Normal [facility] Comment on above: Performed By: #### F [id number] #### [facility] [address] [place] [address] Dr. Dwight Waters URINE CREAT 104.28 mg/dL Normal 20.00-300.00 [facility] Comment on above: Performed By: #### F [id number] #### [facility] [address] [place] [address] Dr. Dwight Waters NEPHROSTOMY TUBE REMOVALon 0 [...] physician present for entire procedure: yes [facility] Radiology Study observation (narrative) [facility] FK506 (TACROLIMUS) WHOLE BLO ODon 07-06-2022 Tacrolimus (FK506), Blood 9.5 ng/mL Normal 2.0-20.0 [facility] Comment on above: Result Comment: Trou gh (immediately following transplant) 15.0 . Trough (steady state, 2 weeks or more after transplant): 3.0 - 8.0 . Performed by LC-MS/MS technology. Performed By: #### C MP #### [facility] [address] [place] [address] Dr. Dwight Waters ALBUMINon 07-03-2022 Albumin [Mass/Vol] 3.7 g/dL Normal 3.4-5.0 [facility] Comment on above: Performed By: #### U RTPCR #### [facility] [address] [place] [address] Dr. Dwight Waters ALKALINE PHOSPHAon ALP [Catalytic activity/Vol] 76 U/L Normal 46-116 [facility] Comment on above: Performed By: #### U RTPCR #### [facility] [address] [place] [address] Dr. Dwight Waters BILIRUBIN CONJUGATED (DIRECT )on 07-03-2022 BILI, CONJUGATED 0.3 mg/dL Critically high 0.0-0.2 [facility] Comment on above: Performed By: #### C BC #### [facility] [address] [place] [address] Dr. Dwight Waters BILIRUBIN TOTALon 07-03-2022 Bilirubin [Mass/Vol] 1.4 mg/dL Critically high 0.2-1.0 [facility] Comment on above: Performed By: #### C BC #### [facility] [address] [place] [address] Dr. Dwight Waters BUNon 07-03-2022 Urea nitrogen [Mass/Vol] 15.0 mg/dL Normal 7.0-18.[address] [facility] Comment on above: Performed By: #### C BC #### [facility] [address] [place] [address] Dr. Dwight Waters CALCIUMon 07-03-2022 Calcium [Mass/Vol] 9.4 mg/dL Normal 8.5-10.[address] [facility] Comment on above: Performed By: #### U RTPCR #### [facility] [address] [place] [address] Dr. Dwight Waters CBC AUTO DIFFon 07-03-2022 BASO # 0.0 103/ul Normal 0.0-0.[address] [facility] Comment on above: Performed By: #### U RTPCR #### [facility] [address] [place] [address] Dr. Dwight Waters Basophils/100 WBC (Bld) 0.6 % Normal 0.2-2.0 [facility] Comment on above: Performed By: #### U RTPCR #### [facility] [address] [place] [address] Dr. Dwight Waters EO # 0.2 103/ul Normal 0.0-0.[address] [facility] Comment on above: Performed By: #### U RTPCR #### [facility] [address] [place] [address] Dr. Dwight Waters Eosinophils/100 WBC (Bld) 3.5 % Normal 0.9-7.[address] [facility] Comment on above: Performed By: #### U RTPCR #### [facility] [address] [place] [address] Dr. Dwight Waters Erythrocyte distribution width (RBC) [Ratio] 12.9 % Normal 11.0-15.[address] [facility] Comment on above: Performed By: #### U RTPCR #### [facility] [address] [place] [address] Dr. Dwight Waters Hematocrit (Bld) [Volume fraction] 44.2 % Normal 42.0-54.[address] [facility] Comment on above: Performed By: #### U RTPCR #### [facility] [address] [address] [address] Dwight Waters Hemoglobin (Bld) [Mass/Vol] 14.6 g/dL Normal 14.0-18.0 [facility] Comment on above: Performed By: #### U RTPCR #### [facility] [address] [address] [address] Dwight Waters IG # 0.02 10e3/ul Normal 0.00-0.[address] [facility] Comment on above: Performed By: #### U RTPCR #### [facility] [address] [place] [address] Dr. Dwight Waters IG % 0.3 % Normal 0.0-0.5 [facility] Comment on above: Performed By: #### U RTPCR #### [facility] [address] [place] [address] Dr. Dwight Waters LYMPH # 2.0 103/ul Normal 1.2-3.[address] [facility] Comment on above: Performed By: #### U RTPCR #### [facility] [address] [place] [address] Dr. Dwight Watesr Lymphocytes/100 WBC (Bld) 28.4 % Normal 20.5-60.0 [facility] Comment on above: Performed By: #### U RTPCR #### [facility] [address] [place] [address] Dr. Dwight Waters MANUAL DIFF REQ NO Normal [facility] Comment on above: Performed By: #### U RTPCR #### [facility] [address] [place] [address] Dr. Dwight Waters MCH (RBC) [Entitic mass] 28.6 pg Normal 25.9-34.[address] [facility] Comment on above: Performed By: #### U RTPCR #### [facility] [address] [place] [address] Dr. Dwight Waters MCHC (RBC) [Mass/Vol] 33.0 g/dL Normal 29.9-35.[address] [facility] Comment on above: Performed By: #### U RTPCR #### [facility] [address] [place] [address] Dr. Dwight Waters MCV (RBC) [Entitic vol] 86.7 fL Normal 80.0-94.[address] [facility] Comment on above: Performed By: #### U RTPCR #### [facility] [address] [place] [address] Dr. Dwight Waters MONO # 0.6 103/ul Normal 0.3-0.[address] [facility] Comment on above: Performed By: #### U RTPCR #### [facility] [address] [place] [address] Dr. Dwight Waters Monocytes/100 WBC (Bld) 9.1 % Normal 1.7-12.[address] [facility] Comment on above: Performed By: #### U RTPCR #### [facility] [address] [place] [address] Dr. Dwight Waters NEUT # 4.0 103/ul Normal 1.4-6.[address] [facility] Comment on above: Performed By: #### U RTPCR #### [facility] [address] [place] [address] Dr. Dwight Waters Neutrophils/100 WBC (Bld) 58.1 % Normal 43.0-75.[address] [facility] Comment on above: Performed By: #### U RTPCR #### [facility] [address] [place] [address] Dr. Dwight Waters Platelet mean volume (Bld) [Entitic vol] 9.5 fL Normal 9.5-13.[address] [facility] Comment on above: Performed By: #### U RTPCR #### [facility] [address] [place] [address] Dr. Dwight Waters PLT 292 103/ul Normal 150-[address] [facility] Comment on above: Performed By: #### U RTPCR #### [facility] [address] [place] [address] Dr. Dwight Waters RBC 5.10 106/ul Normal 4.70-6.[address] [facility] Comment on above: Performed By: #### U RTPCR #### [facility] [address] [place] [address] Dr. Dwight Waters WBC 6.9 103/ul Normal 4.0-11.0 [facility] Comment on above: Performed By: #### U RTPCR #### [facility] [address] [place] [address] Dr. Dwight Waters CHLORIDEon 07-03-2022 Chloride [Moles/Vol] 108 mmol/L Critically high 98-107 [facility] Comment on above: Performed By: #### C BC #### [facility] [address] [place] [address] Dr. Dwight Waters CO2on 07-03-2022 CO2 [Moles/Vol] 25.2 mmol/L Normal 21.0-32.0 [facility] Comment on above: Performed By: #### C BC #### [facility] [address] [place] [address] Dr. Dwight Waters CREATININEon 07-03-2022 Creatinine [Mass/Vol] 1.03 mg/dL Normal 0.70-1.30 [facility] Comment on above: Performed By: #### U RTPCR #### [facility] [address] [place] [address] Dr. Dwight Waters EGFR-AF GHANAIAN >60 Normal >=60 [facility] Comment on above: Performed By: #### U RTPCR #### [facility] [address] [place] [address] Dr. Dwight Waters EGFR-NON AF GHANAIAN >60 Normal >=60 [facility] Comment on above: Performed By: #### U RTPCR #### [facility] [address] [place] [address] Dr. Dwight Waters GGTon 07-03-2022 Gamma glutamyl transferase [Catalytic activity/Vol] 31 U/L Normal 15-85 [facility] Comment on above: Performed By: #### U RTPCR #### [facility] [address] [place] [address] Dr. Dwight Waters GLUCOSE BLOODon 07-03-2022 Glucose [Mass/Vol] 119 mg/dL Critically high 74-106 T [facility] Comment on above: Performed By: #### U RTPCR #### [facility] [address] [place] [address] Dr. Dwight Waters MAGNESIUMon 07-03-2022 Magnesium [Mass/Vol] 1.4 mg/dL Critically low 1.8-2.4 [facility] Comment on above: Performed By: #### C BC #### [facility] [address] [place] [address] Dr. Dwight Waters NAon 07-03-2022 Sodium [Moles/Vol] 142 mmol/L Normal 136-[address] [facility] Comment on above: Performed By: #### C MP #### [facility] [address] [place] [address] Dr. Dwight Waters PHOSPHORUSon 07-03-2022 Phosphate [Mass/Vol] 3.4 mg/dL Normal 2.6-4.[address] [facility] Comment on above: Performed By: #### C BC #### [facility] [address] [place] [address] Dr. Dwight Waters POTASSIUMon 07-03-2022 Potassium [Moles/Vol] 4.1 mmol/L Normal 3.5-5.[address] [facility] Comment on above: Performed By: #### C BC #### [facility] [address] [place] [address] Dr. Dwight Waters SGOTon 07-03-2022 AST [Catalytic activity/Vol] 14 U/L Critically low 15-[address] [facility] Comment on above: Performed By: #### C BC #### [facility] [address] [place] [address] Dr. Dwight Waters SGPTon 07-03-2022 ALT [Catalytic activity/Vol] 25 U/L Normal 16-[address] [facility] Comment on above: Performed By: #### C BC #### [facility] [address] [place] [address] Dr. Dwight Waters US KIDNEYSon 07-03-2022 US KIDNEYS Ultrasound kidneys, bilateral HISTORY: Transplant of kidney , pain in the right lower quadrant COMPARISON: None. TECHNIQUE: Transabdominal ultrasound imaging of both kidneys was performed. FINDINGS: The [place] kidneys are diffusely echogenic and atrophic with cortical thinning. The right kidney measures 8.3 x 3.5 x 4.07 m and the left measures 9.9 x 3.8 x 3.6 cm. No hydronephrosis of the [place] kidneys. There is a renal transplant in [...] stone involving the renal transplant. 2. Atrophic [place] kidneys. 3. Normal bladder. Electronically authenticated by: ARCELIA PIZARRO Date: 2022-07-03 17:22 [address] [facility] CT Abdomen and Pelvis WO con traston 06-27-2022 IMPRESSION: 1. Both [place] kidneys are atrophic with improvement in right-sided [...] Adrenals: Adrenal glands are unremarkable. Kidneys: Both [place] kidneys are atrophic. Interval improvement in right [place] kidney hydronephrosis since May 15, 2022. Status [...] Adrenals: Adrenal glands are unremarkable. Kidneys: Both [place] kidneys are atrophic. Interval improvement in right [place] kidney hydronephrosis since May 15, 2022. Status [...] aggressive osseous lesions. IMPRESSION IMPRESSION: 1. Both [place] kidneys are atrophic with improvement in right-sided hydronephrosis since May 15, 2022. 2. 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 No hydronephrosis. No discrete perinephric collection. 3. Partially imaged postsurgical changes related to prior liver transplant. 4. The bladder is decompressed, limiting evaluation. [facility] WO con trastOrdered By: Gera Lu on 06-27-2022 [facility] Work Phone: CBC AUTO DIFFon 06-18-2022 BASO # 0.0 103/ul Normal 0.0-0.1 [facility] Comment on above: Performed By: #### U RTPCR #### [facility] [address] [place] [address] Dr. Dwight Waters Basophils/100 WBC (Bld) 0.5 % Normal 0.2-2.[address] [facility] Comment on above: Performed By: #### U RTPCR #### [facility] [address] [address] [address] Dwight Waters EO # 0.2 103/ul Normal 0.0-0.[address] [facility] Comment on above: Performed By: #### U RTPCR #### [facility] [address] [place] [address] Dr. Dwight Waters Eosinophils/100 WBC (Bld) 2.3 % Normal 0.9-7.0 [facility] Comment on above: Performed By: #### U RTPCR #### [facility] [address] [place] [address] Dr. Dwight Waters Erythrocyte distribution width (RBC) [Ratio] 12.9 % Normal 11.0-15.0 [facility] Comment on above: Performed By: #### U RTPCR #### [facility] [address] [place] [address] Dr. Dwight Waters Hematocrit (Bld) [Volume fraction] 41.2 % Critically low 42.0-54.0 [facility] Comment on above: Performed By: #### U RTPCR #### [facility] [address] [place] [address] Dr. Dwight Waters Hemoglobin (Bld) [Mass/Vol] 13.3 g/dL Critically low 14.0-18.0 [facility] Comment on above: Performed By: #### U RTPCR #### [facility] [address] [place] [address] Dr. Dwight Waters IG # 0.04 10e3/ul Critically high 0.00-0.03 [facility] Comment on above: Performed By: #### U RTPCR #### [facility] [address] [place] [address] Dr. Dwight Waters IG % 0.5 % Normal 0.0-0.5 [facility] Comment on above: Performed By: #### U RTPCR #### [facility] [address] [place] [address] Dr. Dwight Waters LYMPH # 2.0 103/ul Normal 1.2-3.8 [facility] Comment on above: Performed By: #### U RTPCR #### [facility] [address] [place] [address] Dr. Dwight Waters Lymphocytes/100 WBC (Bld) 22.9 % Normal 20.5-60.0 [facility] Comment on above: Performed By: #### U RTPCR #### [facility] [address] [place] [address] Dr. Dwight Waters MANUAL DIFF REQ NO Normal [facility] Comment on above: Performed By: #### U RTPCR #### [facility] [address] [place] [address] Dr. Dwight Waters MCH (RBC) [Entitic mass] 28.7 pg Normal 25.9-34.[address] [facility] Comment on above: Performed By: #### U RTPCR #### [facility] [address] [place] [address] Dr. Dwight Waters MCHC (RBC) [Mass/Vol] 32.3 g/dL Normal 29.9-35.[address] [facility] Comment on above: Performed By: #### U RTPCR #### [facility] [address] [place] [address] Dr. Dwight Waters MCV (RBC) [Entitic vol] 88.8 fL Normal 80.0-94.0 [facility] Comment on above: Performed By: #### U RTPCR #### [facility] [address] [place] [address] Dr. Dwight Waters MONO # 0.8 103/ul Normal 0.3-0.8 [facility] Comment on above: Performed By: #### U RTPCR #### [facility] [address] [place] [address] Dr. Dwight Waters Monocytes/100 WBC (Bld) 9.7 % Normal 1.7-12.0 [facility] Comment on above: Performed By: #### U RTPCR #### [facility] [address] [place] [address] Dr. Dwight Waters NEUT # 5.6 103/ul Normal 1.4-6.[address] [facility] Comment on above: Performed By: #### U RTPCR #### [facility] [address] [place] [address] Dr. Dwight Waters Neutrophils/100 WBC (Bld) 64.1 % Normal 43.0-75.[address] [facility] Comment on above: Performed By: #### U RTPCR #### [facility] [address] [place] [address] Dr. Dwight Waters Platelet mean volume (Bld) [Entitic vol] 10.0 fL Normal 9.5-13.[address] [facility] Comment on above: Performed By: #### U RTPCR #### [facility] [address] [address] [address] Dwight Waters PLT 270 103/ul Normal 150-[address] [facility] Comment on above: Performed By: #### U RTPCR #### [facility] [address] [address] [address] Dwight Waters RBC 4.64 106/ul Critically low 4.70-6.[address] [facility] Comment on above: Performed By: #### U RTPCR #### [facility] [address] [address] [address] Dwight Waters WBC 8.7 103/ul Normal 4.0-11.[address] [facility] Comment on above: Performed By: #### U RTPCR #### [facility] [address] [place] [address] Dr. Dwight Waters CULTURE URINEon 06-18-2022 CULTURE URINE Culture Observations : NO GROWTH. Normal [facility] Comment on above: Performed By: #### U RTPCR #### [facility] [address] [place] [address] Dr. Dwight Waters [facility] SARS-CoV-2 (COVID-19) RNA ESTELITA+probe Ql (Unsp spec) Not detected Normal NOT DETECTED [facility] Comment on above: Result Comment: [...] for this test is supported by the [employer] and Human Service's declaration [...] #### C BC #### [facility] [address] [place] [address] Dr. Dwight Waters ER URINE PROFILEon 2 Bilirubin Ql (U) Negative Normal NEGATIVE [facility] Comment on above: Performed By: #### U RTPCR #### [facility] [address] [place] [address] Dr. Dwight Waters Clarity (U) CLEAR Normal CLEAR [facility] Comment on above: Performed By: #### U RTPCR #### [facility] [address] [place] [address] Dr. Dwight Waters Color (U) YELLOW Normal YELLOW [facility] Comment on above: Performed By: #### U RTPCR #### [facility] [address] [place] [address] Dr. Dwight Waters ERUAHD A micrscopic examina tion will be performed if indicated. Normal [facility] Comment on above: Performed By: #### U RTPCR #### [facility] [address] [place] [address] Dr. Dwight Waters Glucose Ql (U) Negative Normal NEGATIVE [facility] Comment on above: Performed By: #### U RTPCR #### [facility] [address] [place] [address] Dr. Dwight Waters Hemoglobin Ql (U) LARGE Abnormal NEGATIVE [facility] Comment on above: Performed By: #### U RTPCR #### [facility] [address] [place] [address] Dr. Dwight Waters Ketones Ql (U) Negative Normal NEGATIVE [facility] Comment on above: Performed By: #### U RTPCR #### [facility] [address] [place] [address] Dr. Dwight Waters LEUKOCYTES TRACE Abnormal NEGATIVE [facility] Comment on above: Performed By: #### U RTPCR #### [facility] [address] [place] [address] Dr. Dwight Waters Nitrite Ql (U) Negative Normal NEGATIVE [facility] Comment on above: Performed By: #### U RTPCR #### [facility] [address] [address] [address] Dwight Waters pH (U) 6.0 [pH] Normal 5-[address] [facility] Comment on above: Performed By: #### U RTPCR #### [facility] [address] [place] [address] Dr. Dwight Waters Protein (U) [Mass/Vol] 30 mg/dL Abnormal NEGATIVE/ TRACE [facility] Comment on above: Performed By: #### U RTPCR #### [facility] [address] [place] [address] Dr. Dwight Waters SPEC GRAVITY >=1.030 Abnormal 1.005-<=1.02 5 [facility] Comment on above: Performed By: #### U RTPCR #### [facility] [address] [place] [address] Dr. Dwight Waters UR MICRO IND INDICATED Normal [facility] Comment on above: Performed By: #### U RTPCR #### [facility] [address] [place] [address] Dr. Dwight Waters Urobilinogen Qn (U) 0.2 {Alyssa'U}/dL Normal 0.2 - 1. [address] [facility] Comment on above: Performed By: #### U RTPCR #### [facility] [address] [place] [address] Dr. Dwight Waters PROF 14(COMP METB)on 022 Albumin [Mass/Vol] 3.7 g/dL Normal 3.4-5.0 [facility] Comment on above: Performed By: #### C MP #### [facility] [address] [place] [address] Dr. Dwight Waters Albumin/Globulin [Mass ratio] 0.9 {ratio} Normal [facility] Comment on above: Performed By: #### C MP #### [facility] [address] [place] [address] Dr. Dwight Waters ALP [Catalytic activity/Vol] 80 U/L Normal 46-[address] [facility] Comment on above: Performed By: #### C MP #### [facility] [address] [place] [address] Dr. Dwight Waters ALT [Catalytic activity/Vol] 24 U/L Normal 16-[address] [facility] Comment on above: Performed By: #### C MP #### [facility] [address] [place] [address] Dr. Dwight Waters Anion gap [Moles/Vol] 12.9 mmol/L Normal [facility] Comment on above: Performed By: #### C MP #### [facility] [address] [place] [address] Dr. Dwight Waters AST [Catalytic activity/Vol] 17 U/L Normal 15-[address] [facility] Comment on above: Performed By: #### C MP #### [facility] [address] [place] [address] Dr. Dwight Waters Bilirubin [Mass/Vol] 0.8 mg/dL Normal 0.2-1.0 [facility] Comment on above: Performed By: #### C MP #### [facility] [address] [place] [address] Dr. Dwight Waters Calcium [Mass/Vol] 9.4 mg/dL Normal 8.5-10.[address] [facility] Comment on above: Performed By: #### C MP #### [facility] [address] [place] [address] Dr. Dwight Waters Chloride [Moles/Vol] 106 mmol/L Normal 98-[address] [facility] Comment on above: Performed By: #### C MP #### [facility] [address] [place] [address] Dr. Dwight Waters CO2 [Moles/Vol] 25.3 mmol/L Normal 21.0-32.[address] [facility] Comment on above: Performed By: #### C MP #### [facility] [address] [place] [address] Dr. Dwight Waters Creatinine [Mass/Vol] 1.29 mg/dL Normal 0.70-1.[address] [facility] Comment on above: Performed By: #### C MP #### [facility] [address] [place] [address] Dr. Dwight Waters EGFR-AF GHANAIAN >60 Normal >=[address] [facility] Comment on above: Performed By: #### C MP #### [facility] [address] [address] [address] Dwight Waters EGFR-NON AF GHANAIAN 59 mL/min/1.73m2 Critically low >=60 [facility] Comment on above: Performed By: #### C MP #### [facility] [address] [address] [address] Dwight Waters Globulin (S) [Mass/Vol] 4.2 g/dL Normal [facility] Comment on above: Performed By: #### C MP #### [facility] [address] [place] [address] Dr. Dwight Waters Glucose [Mass/Vol] 106 mg/dL Normal 74-106 [facility] Comment on above: Performed By: #### C MP #### [facility] [address] [address] [address] Dwight Waters Potassium [Moles/Vol] 4.2 mmol/L Normal 3.5-5.[address] [facility] Comment on above: Performed By: #### C MP #### [facility] [address] [place] [address] Dr. Dwight Waters Protein [Mass/Vol] 7.9 g/dL Normal 6.4-8.[address] [facility] Comment on above: Performed By: #### C MP #### [facility] [address] [address] [address] Dwight Waters Sodium [Moles/Vol] 140 mmol/L Normal 136-[address] [facility] Comment on above: Performed By: #### C MP #### [facility] [address] [address] [address] Dwight Waters Urea nitrogen [Mass/Vol] 22.0 mg/dL Critically high 7.0-18.0 [facility] Comment on above: Performed By: #### C MP #### [facility] [address] [address] [address] Dwight Waters Urea nitrogen/Creatinine [Mass ratio] 17.1 mg/mg Normal [facility] Comment on above: Performed By: #### C MP #### [facility] [address] [place] [address] Dr. Dwight Waters URINE MICROSCOPIC ONLYon BACTERIA TRACE Abnormal NONE SEEN [facility] Comment on above: Performed By: #### U RTPCR #### [facility] [address] [place] [address] Dr. Dwight Waters Bacteria identified Cx Nom (U) INDICATED Normal [facility] Comment on above: Performed By: #### U RTPCR #### [facility] [address] [place] [address] Dr. Dwight Waters CAST NONE SEEN Normal NONE SEEN [facility] Comment on above: Performed By: #### U RTPCR #### [facility] [address] [place] [address] Dr. Dwight Waters Crystals LM Nom (Urine sed) NONE SEEN Normal NONE SEEN [facility] Comment on above: Performed By: #### U RTPCR #### [facility] [address] [place] [address] Dr. Dwight Wtaers Epithelial cells LM Ql (Urine sed) NONE SEEN Normal NONE SEEN /RARE [facility] Comment on above: Performed By: #### U RTPCR #### [facility] [address] [place] [address] Dr. Dwight Waters MUCOUS NONE SEEN Normal NONE SEEN [facility] Comment on above: Performed By: #### U RTPCR #### [facility] [address] [place] [address] Dr. Dwight Waters RBC 5-10 Abnormal 0-[address] [facility] Comment on above: Performed By: #### U RTPCR #### [facility] [address] [place] [address] Dr. Dwight Waters WBC 10-20 Abnormal NONE SEEN [facility] Comment on above: Performed By: #### U RTPCR #### [facility] [address] [place] [address] Dr. Dwight Waters ALLOSCREEN RECIPIENT (POST T X PRA)on 06-13-2022 AB SPECIFICITY CLASS COMMENT Antibody Specificity testing performed by [employer]. cPRA calculation based on identification of HLA antibody specificities at MFI >2000 and/or presence of CREG antibodies. [facility] Comment on above: Some of the reagents used for testing in the Clinical Histocompatibility Laboratory have yet to be approved by the FDA. Our certification by CLIA to perform high complexity tests allows us to use these reagents in the context of a stringent QC program, and obviates the need for FDA approval.Testing performed by the [facility] Clinical Histocompatibility Laboratory. [facility] number: [id number]. CLIA number: [id number], Director: Carlito Merchant, PhD, D([facility]). ANTIBODY SPECIFICITY INTERPRETATION Detected [facility] CLASS I SPECIFICITIES Not detected [facility] CLASS II SPECIFICITIES Not detected [facility] HLA Ab (S) 0 % 0 [facility] EXTRA MICROon 06-13-2022 [facility] URINE CULTUREOrdered By: Jah Upton on 06-13-2022 Bacteria identified Cx Nom (Unsp spec) Growth [facility] Bacteria identified Cx Nom (Unsp spec) 10,000-50,000 CFU/mL Mixed skin shimon [facility] Comment on above: Multiple bacterial m orphotypes present. Suggest appropriate recollection if clinically indicated. [facility] CBC,PLATELETSon 06-12-2022 Erythrocyte distribution width (RBC) [Ratio] 13.0 % 10.9 - 14.3 % [facility] Hematocrit (Bld) [Volume fraction] 43.2 % 39.6 - 48.8 % [facility] Hemoglobin (Bld) [Mass/Vol] 13.9 g/dL 13.4 - 16.8 g/dL [facility] Interpretation and review of laboratory results Normal [facility] MCH (RBC) [Entitic mass] 28.7 pg 26.1 - 33.3 pg [facility] MCHC (RBC) [Mass/Vol] 32.2 g/dL 31.9 - 36.5 g/dL [facility] MCV (RBC) [Entitic vol] 89.1 fL 79.0 - 94.5 fL [facility] Platelet mean volume (Bld) [Entitic vol] 10.5 fL 8.7 - 12.3 fL [facility] Platelets (Bld) [#/Vol] 269 10*3/uL 146 - 337 K/uL [facility] RBC (Bld) [#/Vol] 4.85 10*6/uL [facility] WBC (Bld) [#/Vol] 7.68 10*3/uL 3.73 - 10. 10 K/uL [facility] CHEM 7 (LYTES,BUN,CREA,GLUC) on 06-12-2022 Anion gap [Moles/Vol] 14 mmol/L 7 - 17 mmol/L [facility] Chloride [Moles/Vol] 106 mmol/L 98 - 10 8 mmol/L [facility] CO2 [Moles/Vol] 25 mmol/L 21 - 31 mmol/L [facility] Creatinine [Mass/Vol] 1.26 mg/dL 0.70 - 1.30 mg/dL [facility] GFR/1.73 sq M.predicted CKD-EPI (S/P/Bld) [Vol rate/Area] 69 >=60 mL/min/1.73m 2 [facility] Comment on above: Reported eGFR is bas ed on the CKD-EPI 2020 equation using creatinine, age, and sex. Glucose [Mass/Vol] 83 mg/dL 70 - 99 mg/dL [facility] Osmolality Calc [Osmolality] 295 [facility] Potassium [Moles/Vol] 3.8 mmol/L 3.5 - 5.0 mmol/L [facility] Sodium [Moles/Vol] 141 mmol/L 135 - 145 mmol/L [facility] Urea nitrogen [Mass/Vol] 18 mg/dL 7 - 25 mg/dL [facility] Urea nitrogen/Creatinine [Mass ratio] 14 mg/mg [facility] GGTon 06-12-2022 Gamma glutamyl transferase [Catalytic activity/Vol] 20 U/L 8 - 64 U/L [facility] HEMOGLOBIN [id number] By: Link [employer] on 06-12-2022 Average glucose Estimated from glycated hemoglobin (Bld) [Mass/Vol] 126 mg/dL [facility] HbA1c (Bld) [Mass fraction] 6.0 % High 4.7 - 5.6 % [facility] Interpretation and review of laboratory results Abnormal [facility] HEPATIC FUNCTION PANELon Albumin [Mass/Vol] 4.3 g/dL 3.5 - 5.0 g/dL [facility] ALP [Catalytic activity/Vol] 78 U/L 32 - 126 U/L [facility] ALT [Catalytic activity/Vol] 12 U/L 10 - 52 U/L [facility] AST [Catalytic activity/Vol] 16 U/L 10 - 39 U/L [facility] Bilirubin [Mass/Vol] 1.0 mg/dL <1.5 [facility] Bilirubin.direct [Mass/Vol] 0.2 mg/dL <0.3 [facility] Protein [Mass/Vol] 7.5 g/dL 6.4 - 8.3 g/dL [facility] No Panel Informationon 06-12 Interpretation and review of laboratory results Normal [facility] PTH INTACTOrdered By: Marli Lizarraga on 06-12-2022 Interpretation and review of laboratory results Abnormal [facility] Parathyrin.intact [Mass/Vol] 79.7 pg/mL High 14.0 - 72.0 pg/mL [facility] URINALYSIS REFLEX TO CULTURE PERFORMABLEon 06-12-2022 Appearance (U) Clear Clear [facility] Bacteria LM Ql (Urine sed) ABSENT ABSENT [facility] Color (U) Yellow Yellow [facility] Epithelial cells.squamous LM Ql (Urine sed) 1/hpf = 1+ 1/hpf = 1+, 2-5/hpf = 2+, 0/hpf = 0+, ABSENT [facility] Glucose Test strip (U) [Mass/Vol] Negative Negative [facility] Interpretation and review of laboratory results Abnormal [facility] Ketones (U) [Mass/Vol] Trace Abnormal Negative [facility] Leukocyte esterase Test strip Ql (U) Small Abnormal Negative [facility] Nitrite Ql (U) Negative Negative [facility] pH (U) 5.5 [pH] 5.0 - 7.0 [facility] Protein (U) [Mass/Vol] 30 mg/dL Abnormal Negative [facility] RBC (U) [#/Vol] Trace Abnormal Negative [facility] RBC LM.HPF (Urine sed) [#/Area] 0-2 0 - 2 /HPF [facility] Specific gravity (U) [Rel density] 1.026 [facility] Urobilinogen (U) [Mass/Vol] 0.2 E.U./dL 0.2 E.U/dL, 1.0 E.U/dL [facility] WBC LM.HPF (Urine sed) [#/Area] 10-20 Abnormal 0 - 5 /HPF [facility] URINE PROTEIN/CREA RATIO, RA NDOMon 06-12-2022 Creatinine (24H U) [Mass/Vol] 231.68 mg/dL [facility] Protein Unsp time (U) [Mass/Vol] 49 mg/dL [facility] Protein/Creatinine (U) [Mass ratio] 0.211 mg/g [facility] FK506 (TACROLIMUS) WHOLE BLO ODon 06-09-2022 Tacrolimus (FK506), Blood 9.8 ng/mL Normal 2.0-20.[address] [facility] Comment on above: Result Comment: Trou gh (immediately following transplant) 15.0 . Trough (steady state, 2 weeks or more after transplant): 3.0 - 8.0 . Performed by LC-MS/MS technology. Performed By: #### U RTPCR #### [facility] [address] [place] [address] Dr. Dwight Waters ALBUMINon 06-06-2022 Albumin [Mass/Vol] 3.8 g/dL Normal 3.4-5.[address] [facility] Comment on above: Performed By: #### C MP #### [facility] [address] [place] [address] Dr. Dwight Waters ALKALINE PHOSPHAon ALP [Catalytic activity/Vol] 82 U/L Normal 46-[address] [facility] Comment on above: Performed By: #### C MP #### [facility] [address] [place] [address] Dr. Dwight Waters BILIRUBIN CONJUGATED (DIRECT )on 06-06-2022 BILI, CONJUGATED 0.2 mg/dL Normal 0.0-0.[address] [facility] Comment on above: Performed By: #### C BC #### [facility] [address] [place] [address] Dr. Dwight Waters BILIRUBIN TOTALon 06-06-2022 Bilirubin [Mass/Vol] 1.0 mg/dL Normal 0.2-1.[address] [facility] Comment on above: Performed By: #### C BC #### [facility] [address] [place] [address] Dr. Dwight Waters BUNon 06-06-2022 Urea nitrogen [Mass/Vol] 18.0 mg/dL Normal 7.0-18.[address] [facility] Comment on above: Performed By: #### C BC #### [facility] [address] [place] [address] Dr. Dwight Waters CALCIUMon 06-06-2022 Calcium [Mass/Vol] 9.4 mg/dL Normal 8.5-10.[address] [facility] Comment on above: Performed By: #### C MP #### [facility] [address] [place] [address] Dr. Dwight Waters CBC AUTO DIFFon 06-06-2022 BASO # 0.1 103/ul Normal 0.0-0.1 [facility] Comment on above: Performed By: #### U RTPCR #### [facility] [address] [place] [address] Dr. Dwight Waters Basophils/100 WBC (Bld) 0.8 % Normal 0.2-2.0 [facility] Comment on above: Performed By: #### U RTPCR #### [facility] [address] [place] [address] Dr. Dwight Waters EO # 0.3 103/ul Normal 0.0-0.7 [facility] Comment on above: Performed By: #### U RTPCR #### [facility] [address] [place] [address] Dr. Dwight Waters Eosinophils/100 WBC (Bld) 3.3 % Normal 0.9-7.0 [facility] Comment on above: Performed By: #### U RTPCR #### [facility] [address] [place] [address] Dr. Dwight Waters Erythrocyte distribution width (RBC) [Ratio] 12.4 % Normal 11.0-15.0 [facility] Comment on above: Performed By: #### U RTPCR #### [facility] [address] [place] [address] Dr. Dwight Waters Hematocrit (Bld) [Volume fraction] 45.1 % Normal 42.0-54.0 [facility] Comment on above: Performed By: #### U RTPCR #### [facility] [address] [place] [address] Dr. Dwight Waters Hemoglobin (Bld) [Mass/Vol] 14.4 g/dL Normal 14.0-18.0 [facility] Comment on above: Performed By: #### U RTPCR #### [facility] [address] [place] [address] Dr. Dwight Waters IG # 0.01 10e3/ul Normal 0.00-0.03 [facility] Comment on above: Performed By: #### U RTPCR #### [facility] [address] [place] [address] Dr. Dwight Waters IG % 0.1 % Normal 0.0-0.5 [facility] Comment on above: Performed By: #### U RTPCR #### [facility] [address] [place] [address] Dr. Dwight Waters LYMPH # 2.2 103/ul Normal 1.2-3.8 [facility] Comment on above: Performed By: #### U RTPCR #### [facility] [address] [place] [address] Dr. Dwight Waters Lymphocytes/100 WBC (Bld) 30.0 % Normal 20.5-60.0 [facility] Comment on above: Performed By: #### U RTPCR #### [facility] [address] [place] [address] Dr. Dwight Waters MANUAL DIFF REQ NO Normal [facility] Comment on above: Performed By: #### U RTPCR #### [facility] [address] [place] [address] Dr. Dwight Waters MCH (RBC) [Entitic mass] 28.2 pg Normal 25.9-34.0 [facility] Comment on above: Performed By: #### U RTPCR #### [facility] [address] [place] [address] Dr. Dwight Waters MCHC (RBC) [Mass/Vol] 31.9 g/dL Normal 29.9-35.2 [facility] Comment on above: Performed By: #### U RTPCR #### [facility] [address] [place] [address] Dr. Dwight Waters MCV (RBC) [Entitic vol] 88.3 fL Normal 80.0-94.0 [facility] Comment on above: Performed By: #### U RTPCR #### [facility] [address] [place] [address] Dr. Dwight Waters MONO # 0.6 103/ul Normal 0.3-0.8 [facility] Comment on above: Performed By: #### U RTPCR #### [facility] [address] [place] [address] Dr. Dwight Waters Monocytes/100 WBC (Bld) 8.2 % Normal 1.7-12.0 [facility] Comment on above: Performed By: #### U RTPCR #### [facility] [address] [place] [address] Dr. Dwight Waters NEUT # 4.3 103/ul Normal 1.4-6.[address] [facility] Comment on above: Performed By: #### U RTPCR #### [facility] [address] [address] [address] Dwight Waters Neutrophils/100 WBC (Bld) 57.6 % Normal 43.0-75.0 [facility] Comment on above: Performed By: #### U RTPCR #### [facility] [address] [address] [address] Dwight Waters Platelet mean volume (Bld) [Entitic vol] 9.7 fL Normal 9.5-13.5 [facility] Comment on above: Performed By: #### U RTPCR #### [facility] [address] [place] [address] Dr. Dwight Waters PLT 297 103/ul Normal 150-450 [facility] Comment on above: Performed By: #### U RTPCR #### [facility] [address] [place] [address] Dr. Dwight Waters RBC 5.11 106/ul Normal 4.70-6.[address] [facility] Comment on above: Performed By: #### U RTPCR #### [facility] [address] [place] [address] Dr. Dwight Waters WBC 7.5 103/ul Normal 4.0-11.[address] [facility] Comment on above: Performed By: #### U RTPCR #### [facility] [address] [place] [address] Dr. Dwight Waters CHLORIDEon 06-06-2022 Chloride [Moles/Vol] 107 mmol/L Normal 98-[address] [facility] Comment on above: Performed By: #### C BC #### [facility] [address] [place] [address] Dr. Dwight Waters CO2on 06-06-2022 CO2 [Moles/Vol] 27.4 mmol/L Normal 21.0-32.0 [facility] Comment on above: Performed By: #### C BC #### [facility] [address] [place] [address] Dr. Dwight Waters CREATININEon 06-06-2022 Creatinine [Mass/Vol] 1.20 mg/dL Normal 0.70-1.30 [facility] Comment on above: Performed By: #### C BC #### [facility] [address] [place] [address] Dr. Dwight Waters EGFR-AF GHANAIAN >60 Normal >=60 [facility] Comment on above: Performed By: #### C BC #### [facility] [address] [place] [address] Dr. Dwight Waters EGFR-NON AF GHANAIAN >60 Normal >=60 [facility] Comment on above: Performed By: #### C BC #### [facility] [address] [place] [address] Dr. Dwight Waters GGTon 06-06-2022 Gamma glutamyl transferase [Catalytic activity/Vol] 29 U/L Normal 15-85 [facility] Comment on above: Performed By: #### C BC #### [facility] [address] [place] [address] Dr. Dwight Waters GLUCOSE BLOODon 06-06-2022 Glucose [Mass/Vol] 112 mg/dL Critically high 74-106 [facility] Comment on above: Performed By: #### C BC #### [facility] [address] [place] [address] Dr. Dwight Waters MAGNESIUMon 06-06-2022 Magnesium [Mass/Vol] 1.3 mg/dL Critically low 1.8-2.4 [facility] Comment on above: Performed By: #### C MP #### [facility] [address] [place] [address] Dr. Dwight Waters NAon 06-06-2022 Sodium [Moles/Vol] 141 mmol/L Normal 136-145 [facility] Comment on above: Performed By: #### C MP #### [facility] [address] [place] [address] Dr. Dwight Waters PHOSPHORUSon 06-06-2022 Phosphate [Mass/Vol] 3.1 mg/dL Normal 2.6-4.7 [facility] Comment on above: Performed By: #### C MP #### [facility] [address] [place] [address] Dr. Dwight Waters POTASSIUMon 06-06-2022 Potassium [Moles/Vol] 4.3 mmol/L Normal 3.5-5.1 [facility] Comment on above: Performed By: #### C BC #### [facility] [address] [address] [address] Dwight Waters SGOTon 06-06-2022 AST [Catalytic activity/Vol] 16 U/L Normal 15-37 [facility] Comment on above: Performed By: #### C BC #### [facility] [address] [address] [address] Dwight Waters SGPTon 06-06-2022 ALT [Catalytic activity/Vol] 50 U/L Normal 16-63 [facility] Comment on above: Performed By: #### C BC #### [facility] [address] [address] [address] Dwight Waters Bacteria identified Cx Nom ( Bld)on 05-21-2022 Bacteria identified Cx Nom (Unsp spec) NO GROWTH DAY 5 OF 5 [facility] Results may be compr omised due to volume of BACT\ALERT bottle exceeding 10mLs . The optimal blood volume is 8-10 mls per aerobic/anaerobic blood culture bottle. [facility] CALCIUMon 05-20-2022 Calcium [Mass/Vol] 9.1 mg/dL 8.6 - 10. 5 mg/dL [facility] CBC,PLATELETSon 05-20-2022 Erythrocyte distribution width (RBC) [Ratio] 12.5 % 10.9 - 14.3 % [facility] Hematocrit (Bld) [Volume fraction] 37.1 % Low 39.6 - 48.8 % [facility] Hemoglobin (Bld) [Mass/Vol] 12.3 g/dL Low 13.4 - 16.8 g/dL [facility] Interpretation and review of laboratory results Abnormal [facility] MCH (RBC) [Entitic mass] 28.9 pg 26.1 - 33.3 pg [facility] MCHC (RBC) [Mass/Vol] 33.2 g/dL 31.9 - 36.5 g/dL [facility] MCV (RBC) [Entitic vol] 87.3 fL 79.0 - 94.5 fL [facility] Platelet mean volume (Bld) [Entitic vol] 9.9 fL 8.7 - 12.3 fL [facility] Platelets (Bld) [#/Vol] 234 10*3/uL 146 - 337 K/uL [facility] RBC (Bld) [#/Vol] 4.25 10*6/uL Low [facility] WBC (Bld) [#/Vol] 6.31 10*3/uL 3.73 - 10. 10 K/uL [facility] CHEM 7 (LYTES,BUN,CREA,GLUC) on 05-20-2022 Anion gap [Moles/Vol] 15 mmol/L 7 - 17 mmol/L [facility] Chloride [Moles/Vol] 111 mmol/L High 98 - 10 8 mmol/L [facility] CO2 [Moles/Vol] 22 mmol/L 21 - 31 mmol/L [facility] Creatinine [Mass/Vol] 1.10 mg/dL 0.70 - 1.30 mg/dL [facility] GFR/1.73 sq M.predicted CKD-EPI (S/P/Bld) [Vol rate/Area] 81 >=60 mL/min/1.73m 2 [facility] Comment on above: Reported eGFR is bas ed on the CKD-EPI 2020 equation using creatinine, age, and sex. Glucose [Mass/Vol] 92 mg/dL 70 - 99 mg/dL [facility] Interpretation and review of laboratory results Abnormal [facility] Osmolality Calc [Osmolality] 302 [facility] Potassium [Moles/Vol] 4.4 mmol/L 3.5 - 5.0 mmol/L [facility] Sodium [Moles/Vol] 144 mmol/L 135 - 145 mmol/L [facility] Urea nitrogen [Mass/Vol] 18 mg/dL 7 - 25 mg/dL [facility] Urea nitrogen/Creatinine [Mass ratio] 16 mg/mg [facility] MAGNESIUMon 05-20-2022 Interpretation and review of laboratory results Abnormal [facility] Magnesium [Mass/Vol] 1.5 mg/dL Low 1.6 - 2 .6 mg/dL [facility] No Panel Informationon 05-20 Interpretation and review of laboratory results Normal [facility] PHOSPHATE, INORGANICon 05-20 Phosphate [Mass/Vol] 3.3 mg/dL 2.2 - 4 .6 mg/dL [facility] RF Unspecified body region V [...] projections of kidneys, ureters, and bladder. FINDINGS: Manugrapher images: Manugrapher radiographs of the abdomen reveal a nonobstructive [...] Contrast refluxes up the ureter to the [place] right kidney that is grossly normal appearing. [...] projections of kidneys, ureters, and bladder. FINDINGS: Manugrapher images: Manugrapher radiographs of the abdomen reveal a nonobstructive [...] Contrast refluxes up the ureter to the [place] right kidney that is grossly normal appearing. [...] have reviewed and approved this report. [facility] Radiology Study observation (narrative) [facility] RF Unspecified body region V iews during surgeryOrdered By: Lizz Campos on 05-20-2022 [facility] Work Phone: CALCIUMon 05-19-2022 Calcium [Mass/Vol] 9.2 mg/dL 8.6 - 10. 5 mg/dL [facility] Calcium [Mass/Vol] 8.6 mg/dL 8.6 - 10. 5 mg/dL [facility] CBC,PLATELETSon 05-19-2022 Erythrocyte distribution width (RBC) [Ratio] 12.4 % 10.9 - 14.3 % [facility] Hematocrit (Bld) [Volume fraction] 38.0 % Low 39.6 - 48.8 % [facility] Hemoglobin (Bld) [Mass/Vol] 12.0 g/dL Low 13.4 - 16.8 g/dL [facility] Interpretation and review of laboratory results Abnormal [facility] MCH (RBC) [Entitic mass] 28.6 pg 26.1 - 33.3 pg [facility] MCHC (RBC) [Mass/Vol] 31.6 g/dL Low 31.9 - 36.5 g/dL [facility] MCV (RBC) [Entitic vol] 90.5 fL 79.0 - 94.5 fL [facility] Platelet mean volume (Bld) [Entitic vol] 9.7 fL 8.7 - 12.3 fL [facility] Platelets (Bld) [#/Vol] 199 10*3/uL 146 - 337 K/uL [facility] RBC (Bld) [#/Vol] 4.20 10*6/uL Low [facility] WBC (Bld) [#/Vol] 6.81 10*3/uL 3.73 - 10. 10 K/uL [facility] CHEM 7 (LYTES,BUN,CREA,GLUC) on 05-19-2022 Anion gap [Moles/Vol] 13 mmol/L 7 - 17 mmol/L [facility] Chloride [Moles/Vol] 105 mmol/L 98 - 10 8 mmol/L [facility] CO2 [Moles/Vol] 30 mmol/L 21 - 31 mmol/L [facility] Creatinine [Mass/Vol] 1.39 mg/dL High 0.70 - 1.30 mg/dL [facility] GFR/1.73 sq M.predicted CKD-EPI (S/P/Bld) [Vol rate/Area] 61 >=60 mL/min/1.73m 2 [facility] Comment on above: Reported eGFR is bas ed on the CKD-EPI 2020 equation using creatinine, age, and sex. Glucose [Mass/Vol] 121 mg/dL High 70 - 99 mg/dL [facility] Interpretation and review of laboratory results Abnormal [facility] Osmolality Calc [Osmolality] 303 [facility] Potassium [Moles/Vol] 3.8 mmol/L 3.5 - 5.0 mmol/L [facility] Sodium [Moles/Vol] 144 mmol/L 135 - 145 mmol/L [facility] Urea nitrogen [Mass/Vol] 18 mg/dL 7 - 25 mg/dL [facility] Urea nitrogen/Creatinine [Mass ratio] 13 mg/mg [facility] Anion gap [Moles/Vol] 15 mmol/L 7 - 17 mmol/L [facility] Chloride [Moles/Vol] 106 mmol/L 98 - 10 8 mmol/L [facility] CO2 [Moles/Vol] 24 mmol/L 21 - 31 mmol/L [facility] Creatinine [Mass/Vol] 1.46 mg/dL High 0.70 - 1.30 mg/dL [facility] GFR/1.73 sq M.predicted CKD-EPI (S/P/Bld) [Vol rate/Area] 58 Low >=60 mL/min/1.73m 2 [facility] Comment on above: Reported eGFR is bas ed on the CKD-EPI 1 equation using creatinine, age, and sex. Glucose [Mass/Vol] 103 mg/dL High 70 - 99 mg/dL [facility] Interpretation and review of laboratory results Abnormal [facility] Osmolality Calc [Osmolality] 298 [facility] Potassium [Moles/Vol] 3.9 mmol/L 3.5 - 5.0 mmol/L [facility] Sodium [Moles/Vol] 141 mmol/L 135 - 145 mmol/L [facility] Urea nitrogen [Mass/Vol] 21 mg/dL 7 - 25 mg/dL [facility] Urea nitrogen/Creatinine [Mass ratio] 14 mg/mg [facility] MAGNESIUMon 05-19-2022 Magnesium [Mass/Vol] 2.0 mg/dL 1.6 - 2 .6 mg/dL [facility] Magnesium [Mass/Vol] 1.7 mg/dL 1.6 - 2 .6 mg/dL [facility] No Panel Informationon 05-19 Interpretation and review of laboratory results Normal [facility] Interpretation and review of laboratory results Normal [facility] PHOSPHATE, INORGANICon 05-19 Phosphate [Mass/Vol] 3.0 mg/dL 2.2 - 4 .6 mg/dL [facility] Phosphate [Mass/Vol] 2.7 mg/dL 2.2 - 4 .6 mg/dL [facility] CALCIUMon 05-18-2022 Calcium [Mass/Vol] 9.1 mg/dL 8.6 - 10. 5 mg/dL [facility] CBC,PLATELETSon 05-18-2022 Erythrocyte distribution width (RBC) [Ratio] 12.5 % 10.9 - 14.3 % [facility] Hematocrit (Bld) [Volume fraction] 37.3 % Low 39.6 - 48.8 % [facility] Hemoglobin (Bld) [Mass/Vol] 11.9 g/dL Low 13.4 - 16.8 g/dL [facility] Interpretation and review of laboratory results Abnormal [facility] MCH (RBC) [Entitic mass] 28.9 pg 26.1 - 33.3 pg [facility] MCHC (RBC) [Mass/Vol] 31.9 g/dL 31.9 - 36.5 g/dL [facility] MCV (RBC) [Entitic vol] 90.5 fL 79.0 - 94.5 fL [facility] Platelet mean volume (Bld) [Entitic vol] 10.1 fL 8.7 - 12.3 fL [facility] Platelets (Bld) [#/Vol] 189 10*3/uL 146 - 337 K/uL [facility] RBC (Bld) [#/Vol] 4.12 10*6/uL Low [facility] WBC (Bld) [#/Vol] 10.19 10*3/uL High 3.73 - 10 .10 K/uL [facility] CHEM 7 (LYTES,BUN,CREA,GLUC) on 05-18-2022 Anion gap [Moles/Vol] 13 mmol/L 7 - 17 mmol/L [facility] Chloride [Moles/Vol] 102 mmol/L 98 - 10 8 mmol/L [facility] CO2 [Moles/Vol] 26 mmol/L 21 - 31 mmol/L [facility] Creatinine [Mass/Vol] 1.91 mg/dL High 0.70 - 1.30 mg/dL [facility] GFR/1.73 sq M.predicted CKD-EPI (S/P/Bld) [Vol rate/Area] 42 Low >=60 mL/min/1.73m 2 [facility] Comment on above: Reported eGFR is bas ed on the CKD-EPI 2020 equation using creatinine, age, and sex. Glucose [Mass/Vol] 158 mg/dL High 70 - 99 mg/dL [facility] Osmolality Calc [Osmolality] 297 [facility] Potassium [Moles/Vol] 4.0 mmol/L 3.5 - 5.0 mmol/L [facility] Sodium [Moles/Vol] 137 mmol/L 135 - 145 mmol/L [facility] Urea nitrogen [Mass/Vol] 30 mg/dL High 7 - 25 mg/dL [facility] Urea nitrogen/Creatinine [Mass ratio] 16 mg/mg [facility] CHEM 7 (LYTES,BUN,CREA,GLUC) Ordered By: Tamiko Thapa on 05-18-2022 Anion gap [Moles/Vol] 13 mmol/L 7 - 17 mmol/L [facility] Chloride [Moles/Vol] 104 mmol/L 98 - 10 8 mmol/L [facility] CO2 [Moles/Vol] 26 mmol/L 21 - 31 mmol/L [facility] Creatinine [Mass/Vol] 2.96 mg/dL High 0.70 - 1.30 mg/dL [facility] GFR/1.73 sq M.predicted CKD-EPI (S/P/Bld) [Vol rate/Area] 25 Low >=60 mL/min/1.73m 2 [facility] Comment on above: Reported eGFR is bas ed on the CKD-EPI 2020 equation using creatinine, age, and sex. Glucose [Mass/Vol] 136 mg/dL High 70 - 99 mg/dL [facility] Interpretation and review of laboratory results Abnormal [facility] Osmolality Calc [Osmolality] 304 [facility] Potassium [Moles/Vol] 4.2 mmol/L 3.5 - 5.0 mmol/L [facility] Sodium [Moles/Vol] 139 mmol/L 135 - 145 mmol/L [facility] Urea nitrogen [Mass/Vol] 41 mg/dL High 7 - 25 mg/dL [facility] Urea nitrogen/Creatinine [Mass ratio] 14 mg/mg [facility] MAGNESIUMon 05-18-2022 Magnesium [Mass/Vol] 2.2 mg/dL 1.6 - 2 .6 mg/dL [facility] Interpretation and review of laboratory results Normal [facility] Magnesium [Mass/Vol] 1.7 mg/dL 1.6 - 2 .6 mg/dL [facility] No Panel Informationon 05-18 Interpretation and review of laboratory results Abnormal [facility] Interpretation and review of laboratory results Normal [facility] PHOSPHATE, INORGANICon 05-18 Phosphate [Mass/Vol] 2.0 mg/dL Low 2.2 - 4 .6 mg/dL [facility] Interpretation and review of laboratory results Normal [facility] Phosphate [Mass/Vol] 2.8 mg/dL 2.2 - 4 .6 mg/dL [facility] PT,INR,PTTon 05-18-2022 aPTT Coag (PPP) [Time] 31.0 s [facility] INR Coag (Bld) [Relative time] 1.1 {INR} [facility] Interpretation and review of laboratory results Abnormal [facility] PT Coag (PPP) [Time] 14.4 s High [facility] URINE CULTUREOrdered By: Sylvia Campos on 05-18-2022 Bacteria identified Cx Nom (Unsp spec) No Growth [facility] CBC,PLATELETSon 05-17-2022 Erythrocyte distribution width (RBC) [Ratio] 12.8 % 10.9 - 14.3 % [facility] Hematocrit (Bld) [Volume fraction] 42.8 % 39.6 - 48.8 % [facility] Hemoglobin (Bld) [Mass/Vol] 13.3 g/dL Low 13.4 - 16.8 g/dL [facility] Interpretation and review of laboratory results Abnormal [facility] MCH (RBC) [Entitic mass] 28.9 pg 26.1 - 33.3 pg [facility] MCHC (RBC) [Mass/Vol] 31.1 g/dL Low 31.9 - 36.5 g/dL [facility] MCV (RBC) [Entitic vol] 92.8 fL 79.0 - 94.5 fL [facility] Platelet mean volume (Bld) [Entitic vol] 10.3 fL 8.7 - 12.3 fL [facility] Platelets (Bld) [#/Vol] 188 10*3/uL 146 - 337 K/uL [facility] RBC (Bld) [#/Vol] 4.61 10*6/uL [facility] WBC (Bld) [#/Vol] 16.61 10*3/uL High 3.73 - 10 .10 K/uL [facility] CHEM 7 (LYTES,BUN,CREA,GLUC) Ordered By: Kaylah Mc on 05-17-2022 Anion gap [Moles/Vol] 15 mmol/L 7 - 17 mmol/L [facility] Chloride [Moles/Vol] 103 mmol/L 98 - 10 8 mmol/L [facility] CO2 [Moles/Vol] 23 mmol/L 21 - 31 mmol/L [facility] Creatinine [Mass/Vol] 5.95 mg/dL High 0.70 - 1.30 mg/dL [facility] GFR/1.73 sq M.predicted CKD-EPI (S/P/Bld) [Vol rate/Area] 11 Low >=60 mL/min/1.73m 2 [facility] Comment on above: Reported eGFR is bas ed on the CKD-EPI 2020 equation using creatinine, age, and sex. Glucose [Mass/Vol] 165 mg/dL High 70 - 99 mg/dL [facility] Interpretation and review of laboratory results Abnormal [facility] Osmolality Calc [Osmolality] 305 [facility] Potassium [Moles/Vol] 4.6 mmol/L 3.5 - 5.0 mmol/L [facility] Sodium [Moles/Vol] 136 mmol/L 135 - 145 mmol/L [facility] Urea nitrogen [Mass/Vol] 52 mg/dL High 7 - 25 mg/dL [facility] Urea nitrogen/Creatinine [Mass ratio] 9 mg/mg [facility] CHEM 7 (LYTES,BUN,CREA,GLUC) Ordered By: Kehinde Gutierrez on 05-17-2022 Anion gap [Moles/Vol] 24 mmol/L High 7 - 17 mmol/L [facility] Chloride [Moles/Vol] 100 mmol/L 98 - 10 8 mmol/L [facility] CO2 [Moles/Vol] 16 mmol/L Low 21 - 31 mmol/L [facility] Creatinine [Mass/Vol] 8.08 mg/dL High 0.70 - 1.30 mg/dL [facility] GFR/1.73 sq M.predicted CKD-EPI (S/P/Bld) [Vol rate/Area] 7 Low >=60 mL/min/1.73m 2 [facility] Comment on above: Reported eGFR is bas ed on the CKD-EPI 2020 equation using creatinine, age, and sex. Glucose [Mass/Vol] 164 mg/dL High 70 - 99 mg/dL [facility] Interpretation and review of laboratory results Abnormal [facility] Osmolality Calc [Osmolality] 305 [facility] Potassium [Moles/Vol] 5.0 mmol/L 3.5 - 5.0 mmol/L [facility] Sodium [Moles/Vol] 135 mmol/L 135 - 145 mmol/L [facility] Urea nitrogen [Mass/Vol] 56 mg/dL High 7 - 25 mg/dL [facility] Urea nitrogen/Creatinine [Mass ratio] 7 mg/mg [facility] LAVENDER TOP TUBEon 05-17-20 [facility] MAGNESIUMon 05-17-2022 Interpretation and review of laboratory results Normal [facility] Magnesium [Mass/Vol] 1.8 mg/dL 1.6 - 2 .6 mg/dL [facility] Interpretation and review of laboratory results Normal [facility] Magnesium [Mass/Vol] 1.6 mg/dL 1.6 - 2 .6 mg/dL [facility] No Panel Informationon 05-17 [facility] PHOSPHATE, INORGANICon 05-17 Interpretation and review of laboratory results Abnormal [facility] Phosphate [Mass/Vol] 4.9 mg/dL High 2.2 - 4 .6 mg/dL [facility] PT,INR,PTTon 05-17-2022 aPTT Coag (PPP) [Time] 33.0 s [facility] INR Coag (Bld) [Relative time] 1.3 {INR} High [facility] Interpretation and review of laboratory results Abnormal [facility] PT Coag (PPP) [Time] 15.7 s High [facility] Portable [facility]R [...] Stable cardiomegaly. IMPRESSION IMPRESSION: No acute findings. [facility] Radiology Study observation (narrative) [facility] Portable XR Chest ViewsOrder ed By: Raheem Sanz on 05-17-2022 [facility] Work Phone: URINALYSISOrdered By: Michael patel Ma on 05-17-2022 Appearance (U) Cloudy Abnormal Clear [facility] Comment on above: Results may be inacc urate due to color interference. Clinical correlation recommended. Bacteria LM Ql (Urine sed) ABSENT ABSENT [facility] Color (U) Red Abnormal Yellow [facility] Comment on above: Results may be inacc urate due to color interference. Clinical correlation recommended. Epithelial cells.squamous LM Ql (Urine sed) ABSENT 1/hpf = 1+, 2-5/hpf = 2+, 0/hpf = 0+, ABSENT [facility] Glucose Test strip (U) [Mass/Vol] Negative Negative [facility] Comment on above: Results may be inacc urate due to color interference. Clinical correlation recommended. Interpretation and review of laboratory results Abnormal [facility] Ketones (U) [Mass/Vol] Trace Abnormal Negative [facility] Comment on above: Results may be inacc urate due to color interference. Clinical correlation recommended. Leukocyte esterase Test strip Ql (U) Large Abnormal Negative [facility] Comment on above: Results may be inacc urate due to color interference. Clinical correlation recommended. Nitrite Ql (U) Negative Negative [facility] Comment on above: Results may be inacc urate due to color interference. Clinical correlation recommended. pH (U) 5.0 [pH] 5.0 - 7.0 [facility] Comment on above: Results may be inacc urate due to color interference. Clinical correlation recommended. Protein (U) [Mass/Vol] mg/dL Abnormal Negative [facility] Comment on above: Results may be inacc urate due to color interference. Clinical correlation recommended. RBC (U) [#/Vol] Large Abnormal Negative [facility] Comment on above: Results may be inacc urate due to color interference. Clinical correlation recommended. RBC LM.HPF (Urine sed) [#/Area] /[HPF] Abnormal 0 - 2 /HPF [facility] Specific gravity (U) [Rel density] 1.016 [facility] Comment on above: Results may be inacc urate due to color interference. Clinical correlation recommended. Urobilinogen (U) [Mass/Vol] 0.2 E.U./dL 0.2 E.U/dL, 1.0 E.U/dL [facility] Comment on above: Results may be inacc urate due to color interference. Clinical correlation recommended. WBC LM.HPF (Urine sed) [#/Area] /[HPF] Abnormal 0 - 5 /HPF [facility] URINE CULTUREOrdered By: Tyler Tiwari on 05-17-2022 Bacteria identified Cx Nom (Unsp spec) No Growth [facility] CBC,PLATELETSon 05-16-2022 Erythrocyte distribution width (RBC) [Ratio] 12.9 % 10.9 - 14.3 % [facility] Hematocrit (Bld) [Volume fraction] 46.5 % 39.6 - 48.8 % [facility] Hemoglobin (Bld) [Mass/Vol] 14.7 g/dL 13.4 - 16.8 g/dL [facility] Interpretation and review of laboratory results Abnormal [facility] MCH (RBC) [Entitic mass] 28.3 pg 26.1 - 33.3 pg [facility] MCHC (RBC) [Mass/Vol] 31.6 g/dL Low 31.9 - 36.5 g/dL [facility] MCV (RBC) [Entitic vol] 89.6 fL 79.0 - 94.5 fL [facility] Platelet mean volume (Bld) [Entitic vol] 10.3 fL 8.7 - 12.3 fL [facility] Platelets (Bld) [#/Vol] 188 10*3/uL 146 - 337 K/uL [facility] RBC (Bld) [#/Vol] 5.19 10*6/uL [facility] WBC (Bld) [#/Vol] 12.55 10*3/uL High 3.73 - 10 .10 K/uL [facility] CHEM 7 (LYTES,BUN,CREA,GLUC) Ordered By: Alma Pena on 05-16-2022 Anion gap [Moles/Vol] 14 mmol/L 7 - 17 mmol/L [facility] Chloride [Moles/Vol] 103 mmol/L 98 - 10 8 mmol/L [facility] CO2 [Moles/Vol] 22 mmol/L 21 - 31 mmol/L [facility] Creatinine [Mass/Vol] 6.09 mg/dL High 0.70 - 1.30 mg/dL [facility] GFR/1.73 sq M.predicted CKD-EPI (S/P/Bld) [Vol rate/Area] 10 Low >=60 mL/min/1.73m 2 [facility] Comment on above: Reported eGFR is bas ed on the CKD-EPI 2021 equation using creatinine, age, and sex. Glucose [Mass/Vol] 134 mg/dL High 70 - 99 mg/dL [facility] Interpretation and review of laboratory results Abnormal [facility] Osmolality Calc [Osmolality] 298 [facility] Potassium [Moles/Vol] 4.9 mmol/L 3.5 - 5.0 mmol/L [facility] Sodium [Moles/Vol] 134 mmol/L Low 135 - 145 mmol/L [facility] Comment on above: Results inconsistent with previous results Urea nitrogen [Mass/Vol] 49 mg/dL High 7 - 25 mg/dL [facility] Urea nitrogen/Creatinine [Mass ratio] 8 mg/mg [facility] CHEM 7 (LYTES,BUN,CREA,GLUC) on 05-16-2022 Anion gap [Moles/Vol] 17 mmol/L 7 - 17 mmol/L [facility] Chloride [Moles/Vol] 106 mmol/L 98 - 10 8 mmol/L [facility] CO2 [Moles/Vol] 22 mmol/L 21 - 31 mmol/L [facility] Creatinine [Mass/Vol] 5.23 mg/dL High 0.70 - 1.30 mg/dL [facility] GFR/1.73 sq M.predicted CKD-EPI (S/P/Bld) [Vol rate/Area] 13 Low >=60 mL/min/1.73m 2 [facility] Comment on above: Reported eGFR is bas ed on the CKD-EPI 1 equation using creatinine, age, and sex. Glucose [Mass/Vol] 116 mg/dL High 70 - 99 mg/dL [facility] Interpretation and review of laboratory results Abnormal [facility] Osmolality Calc [Osmolality] 305 [facility] Potassium [Moles/Vol] 4.6 mmol/L 3.5 - 5.0 mmol/L [facility] Sodium [Moles/Vol] 140 mmol/L 135 - 145 mmol/L [facility] Urea nitrogen [Mass/Vol] 42 mg/dL High 7 - 25 mg/dL [facility] Urea nitrogen/Creatinine [Mass ratio] 8 mg/mg [facility] EXTRA MICROon 05-16-2022 [facility] LT BLUE TOP TUBEon [facility] LYTES (NA, K, CL) - URINE - RANDOMon 05-16-2022 Chloride (24H U) [Moles/Vol] 68 mmol/L [facility] Potassium (24H U) [Moles/Vol] 36.7 mmol/L [facility] Sodium (24H U) [Moles/Vol] 55 mmol/L [facility] The reference range has not been established for random urine specimens. The test result should be integrated into the clinical context for interpretation. [facility] MAGNESIUMon 05-16-2022 Interpretation and review of laboratory results Normal [facility] Magnesium [Mass/Vol] 1.7 mg/dL 1.6 - 2 .6 mg/dL [facility] NOVEL CORONAVIRUS PCROrdered By: Edson Candelario on 05-16-2022 SARS-CoV-2 (COVID-19) RNA ESTELITA+probe Ql (Unsp spec) Not detected NOT DETECTED [facility] Comment on above: [facility] Negative results do [...] use authorization for use by authorized laboratories. [facility] No Panel Informationon 05-16 [facility] OSMOLALITY, URINEon 05-16-20 Interpretation and review of laboratory results Normal [facility] Osmolality (U) [Osmolality] 320 mosm/kg [facility] The reference range has not been established for random urine specimens. The test result should be integrated into the clinical context for interpretation. [facility] PROCALCITONINon 05-16-2022 Interpretation and review of laboratory results Normal [facility] Procalcitonin [Mass/Vol] 0.18 ng/mL <0.50 [facility] Comment on above: Procalcitonin is [...] and trend procalcitonin in various clinical settings. [email or web address] Two common cutoffs associated with bacterial infections are as follows. Respiratory tract infections: >0.25 ng/mL Sepsis/septic shock: >0.5 ng/mL Procalcitonin should not be used alone as a diagnostic tool, however. All procalcitonin results should be interpreted in association with the patients clinical condition and all laboratory findings. [facility] PT,INR,PTTon 05-16-2022 aPTT Coag (PPP) [Time] 30.3 s [facility] INR Coag (Bld) [Relative time] 1.1 {INR} [facility] Interpretation and review of laboratory results Normal [facility] PT Coag (PPP) [Time] 14.1 s [facility] SARS-CoV-2 (COVID-19) RNA NA A+probe Ql (Unsp spec)Ordered By: Edson Candelario on 05-16-2022 Interpretation and review of laboratory results [facility] TACROLIMUS LEVEL, TROUGH (NC E DRUG LEVEL)Ordered By: Mariama Nick on 05-16-2022 Interpretation and review of laboratory results Normal [facility] Tacrolimus (Bld) [Mass/Vol] 4.1 ng/mL Bone Marrow Transplant: 4.0-12.0, Therapeutic: 5.0-15.0 [facility] Method performed is a chemiluminescent microparticle immunoasssay on the [employer] i2000. The range is based on experience at [facility] and users should be aware that target concentrations vary widely depending on concomitant therapy, time post-transplant, and desired degree of immunosuppression. [facility] URINE PROTEIN/CREA RATIO, RA Baljit 05-16-2022 Creatinine (24H U) [Mass/Vol] 59.82 mg/dL [facility] Protein Unsp time (U) [Mass/Vol] 111 mg/dL [facility] Protein/Creatinine (U) [Mass ratio] 1.856 mg/g [facility] US for transplanted kidney l [...] appearing vascular flow in the transplant kidney. [facility] Radiology Study observation (narrative) [facility] US for transplanted kidney l imitedOrdered By: Rosendo Matute on 05-16-2022 [facility] Work Phone: CBC AND ELECTRONIC DIFFon Basophils (Bld) [#/Vol] 10*3/uL 0.00 - 0.09 K/uL [facility] Basophils/100 WBC (Bld) 0.2 % [facility] Differential cell count method Nom (Bld) Electronic Differential [facility] Eosinophils (Bld) [#/Vol] 10*3/uL 0.00 - 0.48 K/uL [facility] Eosinophils/100 WBC (Bld) 0.0 % [facility] Erythrocyte distribution width (RBC) [Ratio] 12.8 % 10.9 - 14.3 % [facility] Hematocrit (Bld) [Volume fraction] 46.0 % 39.6 - 48.8 % [facility] Hemoglobin (Bld) [Mass/Vol] 14.6 g/dL 13.4 - 16.8 g/dL [facility] Immature granulocytes (Bld) [#/Vol] 0.07 10*3/uL <=0.08 [facility] Immature granulocytes/100 WBC (Bld) 0.4 % [facility] Interpretation and review of laboratory results Abnormal [facility] Lymphocytes (Bld) [#/Vol] 1.49 10*3/uL 0.83 - 3.57 K/uL [facility] Lymphocytes/100 WBC (Bld) 9.4 % [facility] MCH (RBC) [Entitic mass] 28.2 pg 26.1 - 33.3 pg [facility] MCHC (RBC) [Mass/Vol] 31.7 g/dL Low 31.9 - 36.5 g/dL [facility] MCV (RBC) [Entitic vol] 89.0 fL 79.0 - 94.5 fL [facility] Monocytes (Bld) [#/Vol] 1.45 10*3/uL High 0.24 - 0.93 K/uL [facility] Monocytes/100 WBC (Bld) 9.2 % [facility] Neutrophils (Bld) [#/Vol] 12.77 10*3/uL High 1.57 - 6.19 K/uL [facility] Nucleated RBC/100 WBC (Bld) [Ratio] 0.0 % <=0.2 /100 WBC [facility] Platelet mean volume (Bld) [Entitic vol] 9.9 fL 8.7 - 12.3 fL [facility] Platelets (Bld) [#/Vol] 250 10*3/uL 146 - 337 K/uL [facility] RBC (Bld) [#/Vol] 5.17 10*6/uL [facility] Segmented neutrophils/100 WBC (Bld) 80.8 % [facility] WBC (Bld) [#/Vol] 15.81 10*3/uL High 3.73 - 10 .10 K/uL [facility] CBC AUTO DIFFon 05-15-2022 BASO # 0.0 103/ul Normal 0.0-0.[address] [facility] Comment on above: Performed By: #### C BC #### [facility] [address] [place] [address] Dr. Dwight Waters Basophils/100 WBC (Bld) 0.3 % Normal 0.2-2.0 [facility] Comment on above: Performed By: #### C BC #### [facility] [address] [place] [address] Dr. Dwight Waters EO # 0.1 103/ul Normal 0.0-0.[address] [facility] Comment on above: Performed By: #### C BC #### [facility] [address] [place] [address] Dr. Dwight Waters Eosinophils/100 WBC (Bld) 0.8 % Critically low 0.9-7.0 [facility] Comment on above: Performed By: #### C BC #### [facility] [address] [place] [address] Dr. Dwight Waters Erythrocyte distribution width (RBC) [Ratio] 12.7 % Normal 11.0-15.0 [facility] Comment on above: Performed By: #### C BC #### [facility] [address] [place] [address] Dr. Dwight Waters Hematocrit (Bld) [Volume fraction] 43.5 % Normal 42.0-54.0 [facility] Comment on above: Performed By: #### C BC #### [facility] [address] [place] [address] Dr. Dwight Waters Hemoglobin (Bld) [Mass/Vol] 14.4 g/dL Normal 14.0-18.0 [facility] Comment on above: Performed By: #### C BC #### [facility] [address] [place] [address] Dr. Dwight Waters IG # 0.02 10e3/ul Normal 0.00-0.[address] [facility] Comment on above: Performed By: #### C BC #### [facility] [address] [place] [address] Dr. Dwight Waters IG % 0.2 % Normal 0.0-0.[address] [facility] Comment on above: Performed By: #### C BC #### [facility] [address] [place] [address] Dr. Dwight Waters LYMPH # 1.5 103/ul Normal 1.2-3.8 [facility] Comment on above: Performed By: #### C BC #### [facility] [address] [place] [address] Dr. Dwight Waters Lymphocytes/100 WBC (Bld) 12.5 % Critically low 20.5-60.0 [facility] Comment on above: Performed By: #### C BC #### [facility] [address] [place] [address] Dr. Dwight Waters MANUAL DIFF REQ NO Normal [facility] Comment on above: Performed By: #### C BC #### [facility] [address] [place] [address] Dr. Dwight Waters MCH (RBC) [Entitic mass] 28.6 pg Normal 25.9-34.0 [facility] Comment on above: Performed By: #### C BC #### [facility] [address] [place] [address] Dr. Dwight Waters MCHC (RBC) [Mass/Vol] 33.1 g/dL Normal 29.9-35.2 [facility] Comment on above: Performed By: #### C BC #### [facility] [address] [place] [address] Dr. Dwight Waters MCV (RBC) [Entitic vol] 86.3 fL Normal 80.0-94.0 [facility] Comment on above: Performed By: #### C BC #### [facility] [address] [place] [address] Dr. Dwight Waters MONO # 1.0 103/ul Critically high 0.3-0.8 [facility] Comment on above: Performed By: #### C BC #### [facility] [address] [place] [address] Dr. Dwight Waters Monocytes/100 WBC (Bld) 8.2 % Normal 1.7-12.0 [facility] Comment on above: Performed By: #### C BC #### [facility] [address] [place] [address] Dr. Dwight Waters NEUT # 9.1 103/ul Critically high 1.4-6.5 [facility] Comment on above: Performed By: #### C BC #### [facility] [address] [place] [address] Dr. Dwight Waters Neutrophils/100 WBC (Bld) 78.0 % Critically high 43.0-75.0 [facility] Comment on above: Performed By: #### C BC #### [facility] [address] [place] [address] Dr. Dwight Waters Platelet mean volume (Bld) [Entitic vol] 9.8 fL Normal 9.5-13.5 [facility] Comment on above: Performed By: #### C BC #### [facility] [address] [place] [address] Dr. Dwight Waters PLT 251 103/ul Normal 150-450 [facility] Comment on above: Performed By: #### C BC #### [facility] [address] [place] [address] Dr. Dwight Waters RBC 5.04 106/ul Normal 4.70-6.10 [facility] Comment on above: Performed By: #### C BC #### [facility] [address] [place] [address] Dr. Dwight Waters WBC 11.6 103/ul Critically high 4.0-11.0 [facility] Comment on above: Performed By: #### C BC #### [facility] [address] [place] [address] Dr. Dwight Waters CHEM 6 (LYTES, BUN CREA)on 0 05-15-2022 Anion gap [Moles/Vol] 12 mmol/L 7 - 17 mmol/L [facility] Chloride [Moles/Vol] 105 mmol/L 98 - 10 8 mmol/L [facility] CO2 [Moles/Vol] 26 mmol/L 21 - 31 mmol/L [facility] Creatinine [Mass/Vol] 2.85 mg/dL High 0.70 - 1.30 mg/dL [facility] GFR/1.73 sq M.predicted CKD-EPI (S/P/Bld) [Vol rate/Area] 26 Low >=60 mL/min/1.73m 2 [facility] Comment on above: Reported eGFR is bas ed on the CKD-EPI 2020 equation using creatinine, age, and sex. Potassium [Moles/Vol] 4.6 mmol/L 3.5 - 5.0 mmol/L [facility] Sodium [Moles/Vol] 138 mmol/L 135 - 145 mmol/L [facility] Urea nitrogen [Mass/Vol] 32 mg/dL High 7 - 25 mg/dL [facility] Urea nitrogen/Creatinine [Mass ratio] 11 mg/mg [facility] CT ABD/PELVIS WO CONon 05-15 CT [...] transplanted kidney with moderate right-sided hydronephrosis. Atrophic [place] kidneys with moderate right-sided hydronephrosis. Multiple nonobstructive [...] transplanted kidney with moderate right-sided hydronephrosis. Atrophic [place] kidneys with moderate right-sided hydronephrosis. Multiple nonobstructive right renal calculi measuring up to 8 mm. FOLLOW-UP: Follow-up as clinically indicated. Electronically authenticated by: LYNDSAY JEAN Date: 2022-05-15 05:04 Normal [facility] Covid-19 PCR (CVDTBH)on 04-30 SARS-CoV-2 (COVID-19) RNA ESTELITA+probe Ql (Unsp spec) Not detected Normal NOT DETECTED [facility] Comment on above: Result Comment: [...] for this test is supported by the [employer] of Health and Human Service's declaration [...] #### U RTPCR #### [facility] [address] [place] [address] Dr. Dwight Waters GLUCOSEon 05-15-2022 Glucose [Mass/Vol] 141 mg/dL High 70 - 99 mg/dL [facility] GOLD TOP TUBEon 05-15-2022 [facility] HEPATIC FUNCTION PANELon Albumin [Mass/Vol] 4.3 g/dL 3.5 - 5.0 g/dL [facility] ALP [Catalytic activity/Vol] 85 U/L 32 - 126 U/L [facility] ALT [Catalytic activity/Vol] 13 U/L 10 - 52 U/L [facility] AST [Catalytic activity/Vol] 15 U/L 10 - 39 U/L [facility] Bilirubin [Mass/Vol] 0.8 mg/dL <1.5 [facility] Bilirubin.direct [Mass/Vol] 0.2 mg/dL <0.3 [facility] Interpretation and review of laboratory results Normal [facility] Protein [Mass/Vol] 7.3 g/dL 6.4 - 8.3 g/dL [facility] LIPASEon 05-15-2022 Lipase [Catalytic activity/Vol] 8 U/L Low 11 - 82 U/L [facility] No Panel Informationon 05-15 Interpretation and review of laboratory results Abnormal [facility] PROF 14(COMP METB)on 022 Albumin [Mass/Vol] 3.8 g/dL Normal 3.4-5.0 [facility] Comment on above: Performed By: #### U RTPCR #### [facility] [address] [place] [address] Dr. Dwight Waters Albumin/Globulin [Mass ratio] 1.1 {ratio} Normal [facility] Comment on above: Performed By: #### U RTPCR #### [facility] [address] [place] [address] Dr. Dwight Waters ALP [Catalytic activity/Vol] 92 U/L Normal 46-116 [facility] Comment on above: Performed By: #### U RTPCR #### [facility] [address] [place] [address] Dr. Dwight Waters ALT [Catalytic activity/Vol] 25 U/L Normal 16-63 [facility] Comment on above: Performed By: #### U RTPCR #### [facility] [address] [place] [address] Dr. Dwight Waters Anion gap [Moles/Vol] 14.6 mmol/L Normal [facility] Comment on above: Performed By: #### U RTPCR #### [facility] [address] [place] [address] Dr. Dwight Waters AST [Catalytic activity/Vol] 17 U/L Normal 15-37 [facility] Comment on above: Performed By: #### U RTPCR #### [facility] [address] [place] [address] Dr. Dwight Waters Bilirubin [Mass/Vol] 0.6 mg/dL Normal 0.2-1.0 [facility] Comment on above: Performed By: #### U RTPCR #### [facility] [address] [address] [address] Dwight Waters Calcium [Mass/Vol] 9.9 mg/dL Normal 8.5-10.1 [facility] Comment on above: Performed By: #### U RTPCR #### [facility] [address] [address] [address] Dwight Waters Chloride [Moles/Vol] 106 mmol/L Normal 98-107 [facility] Comment on above: Performed By: #### U RTPCR #### [facility] [address] [address] [address] Dwight Waters CO2 [Moles/Vol] 24.2 mmol/L Normal 21.0-32.0 [facility] Comment on above: Performed By: #### U RTPCR #### [facility] [address] [address] [address] Dwight Waters Creatinine [Mass/Vol] 1.58 mg/dL Critically high 0.70-1.30 [facility] Comment on above: Performed By: #### U RTPCR #### [facility] [address] [address] [address] Dwight Waters EGFR-AF GHANAIAN 56 mL/min/1.73m2 Critically low >=60 [facility] Comment on above: Performed By: #### U RTPCR #### [facility] [address] [address] [address] Dwight Waters EGFR-NON AF GHANAIAN 46 mL/min/1.73m2 Critically low >=60 [facility] Comment on above: Performed By: #### U RTPCR #### [facility] [address] [address] [address] Dwight Waters Globulin (S) [Mass/Vol] 3.5 g/dL Normal [facility] Comment on above: Performed By: #### U RTPCR #### [facility] [address] [address] [address] Dwight Waters Glucose [Mass/Vol] 162 mg/dL Critically high 74-106 [facility] Comment on above: Performed By: #### U RTPCR #### [facility] [address] [address] [address] Dwight Waters Potassium [Moles/Vol] 3.8 mmol/L Normal 3.5-5.1 [facility] Comment on above: Performed By: #### U RTPCR #### [facility] [address] [address] [address] Dwight Waters Protein [Mass/Vol] 7.3 g/dL Normal 6.4-8.2 [facility] Comment on above: Performed By: #### U RTPCR #### [facility] [address] [address] [address] Dwight Waters Sodium [Moles/Vol] 141 mmol/L Normal 136-145 [facility] Comment on above: Performed By: #### U RTPCR #### [facility] [address] [address] [address] Dwight Waters Urea nitrogen [Mass/Vol] 22.0 mg/dL Critically high 7.0-18.0 [facility] Comment on above: Performed By: #### U RTPCR #### [facility] [address] [address] [address] Dwight Waters Urea nitrogen/Creatinine [Mass ratio] 13.9 mg/mg Normal [facility] Comment on above: Performed By: #### U RTPCR #### [facility] [address] [address] [address] Dwight Waters Portable XR Chest Viewson [...] chest. IMPRESSION IMPRESSION: No acute cardiopulmonary disease [facility] Radiology Study observation (narrative) [facility] Portable XR Chest ViewsOrder ed By: Vladislav Omer on 05-15-2022 [facility] URINE DIPSTICK; REFLEX MICRO SCOPY; REFLEX CULTURE PERFORMABLEon 05-15-2022 Appearance (U) Clear Clear [facility] Color (U) Yellow Yellow [facility] Glucose Test strip (U) [Mass/Vol] 100 mg/dL Abnormal Negative [facility] Interpretation and review of laboratory results Abnormal [facility] Ketones (U) [Mass/Vol] Negative Negative [facility] Leukocyte esterase Test strip Ql (U) Large Abnormal Negative [facility] Nitrite Ql (U) Negative Negative [facility] pH (U) 6.0 [pH] 5.0 - 7.0 [facility] Protein (U) [Mass/Vol] 100 mg/dL Abnormal Negative [facility] RBC (U) [#/Vol] Large Abnormal Negative [facility] Specific gravity (U) [Rel density] 1.010 [facility] Urobilinogen (U) [Mass/Vol] 0.2 E.U./dL 0.2 E.U/dL, 1.0 E.U/dL [facility] URINE MICROSCOPIC WITH REFLE X TO CULTUREOrdered By: Rey Bro on 05-15-2022 Bacteria LM Ql (Urine sed) ABSENT ABSENT [facility] Epithelial cells.squamous LM Ql (Urine sed) ABSENT 1/hpf = 1+, 2-5/hpf = 2+, 0/hpf = 0+, ABSENT [facility] Interpretation and review of laboratory results Abnormal [facility] RBC LM.HPF (Urine sed) [#/Area] /[HPF] Abnormal 0 - 2 /HPF [facility] WBC LM.HPF (Urine sed) [#/Area] 10-20 Abnormal 0 - 5 /HPF [facility]PELVIS WO CONon [facility]-12 CT ABD/PELVIS WO CON Begin Addendum #[address] Lund 3:25 PM EST 05/11/2022. Begin Addendum #2 IMPRESSION below should also contain the followin. 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 The [place] kidneys are progressively atrophic bilaterally compared to [...] of 06/14/2020 are no longer present. The [place] distal right ureter is decompressed beyond this [...] with surgical history for renal graft and [place] right urinary drainage, as a discrete ureteroneocystostomy is not identified, and the graft may be draining via a ureteroureterostomy. Urology consultation recommended. 3. The [place] kidneys are bilaterally atrophic, with right renal sinus calcifications consistent with nonobstructing right [place] renal calculi up to 6 mm. Normal [facility] CBC AUTO DIFFon 05-11-2022 BASO # 0.1 103/ul Normal 0.0-0.[address] [facility] Comment on above: Performed By: #### U RTPCR #### [facility] [address] [place], [place] [address] Dr. Dwight Waters Basophils/100 WBC (Bld) 0.8 % Normal 0.2-2.[address] [facility] Comment on above: Performed By: #### U RTPCR #### [facility] [address] [place], [place] [address] Dr. Dwight Waters EO # 0.2 103/ul Normal 0.0-0.[address] [facility] Comment on above: Performed By: #### U RTPCR #### [facility] [address] [place] [address] Dr. Dwight Waters Eosinophils/100 WBC (Bld) 2.5 % Normal 0.9-7.0 [facility] Comment on above: Performed By: #### U RTPCR #### [facility] [address] [place] [address] Dr. Dwight Waters Erythrocyte distribution width (RBC) [Ratio] 12.5 % Normal 11.0-15.0 [facility] Comment on above: Performed By: #### U RTPCR #### [facility] [address] [place] [address] Dr. Dwight Waters Hematocrit (Bld) [Volume fraction] 48.3 % Normal 42.0-54.0 [facility] Comment on above: Performed By: #### U RTPCR #### [facility] [address] [place] [address] Dr. Dwight Waters Hemoglobin (Bld) [Mass/Vol] 15.3 g/dL Normal 14.0-18.0 [facility] Comment on above: Performed By: #### U RTPCR #### [facility] [address] [place] [address] Dr. Dwight Waters IG # 0.01 10e3/ul Normal 0.00-0.03 [facility] Comment on above: Performed By: #### U RTPCR #### [facility] [address] [place] [address] Dr. Dwight Waters IG % 0.2 % Normal 0.0-0.5 [facility] Comment on above: Performed By: #### U RTPCR #### [facility] [address] [place] [address] Dr. Dwight Waters LYMPH # 1.9 103/ul Normal 1.2-3.[address] [facility] Comment on above: Performed By: #### U RTPCR #### [facility] [address] [place] [address] Dr. Dwight Waters Lymphocytes/100 WBC (Bld) 29.8 % Normal 20.5-60.[address] [facility] Comment on above: Performed By: #### U RTPCR #### [facility] [address] [place] [address] Dr. Dwight Waters MANUAL DIFF REQ NO Normal [facility] Comment on above: Performed By: #### U RTPCR #### [facility] [address] [place] [address] Dr. Dwight Waters MCH (RBC) [Entitic mass] 28.2 pg Normal 25.9-34.0 [facility] Comment on above: Performed By: #### U RTPCR #### [facility] [address] [place] [address] Dr. Dwight Waters MCHC (RBC) [Mass/Vol] 31.7 g/dL Normal 29.9-35.2 [facility] Comment on above: Performed By: #### U RTPCR #### [facility] [address] [place] [address] Dr. Dwight Waters MCV (RBC) [Entitic vol] 89.1 fL Normal 80.0-94.0 [facility] Comment on above: Performed By: #### U RTPCR #### [facility] [address] [place] [address] Dr. Dwight Waters MONO # 0.6 103/ul Normal 0.3-0.8 [facility] Comment on above: Performed By: #### U RTPCR #### [facility] [address] [place] [address] Dr. Dwight Waters Monocytes/100 WBC (Bld) 9.0 % Normal 1.7-12.0 [facility] Comment on above: Performed By: #### U RTPCR #### [facility] [address] [place] [address] Dr. Dwight Waters NEUT # 3.6 103/ul Normal 1.4-6.[address] [facility] Comment on above: Performed By: #### U RTPCR #### [facility] [address] [place] [address] Dr. Dwight Waters Neutrophils/100 WBC (Bld) 57.7 % Normal 43.0-75.0 [facility] Comment on above: Performed By: #### U RTPCR #### [facility] [address] [address] [address] Dwight Waters Platelet mean volume (Bld) [Entitic vol] 9.9 fL Normal 9.5-13.5 [facility] Comment on above: Performed By: #### U RTPCR #### [facility] [address] [address] [address] Dwight Waters PLT 249 103/ul Normal 150-[address] [facility] Comment on above: Performed By: #### U RTPCR #### [facility] [address] [place] [address] Dr. Dwight Waters RBC 5.42 106/ul Normal 4.70-6.10 [facility] Comment on above: Performed By: #### U RTPCR #### [facility] [address] [place] [address] Dr. Dwight Waters WBC 6.3 103/ul Normal 4.0-11.0 [facility] Comment on above: Performed By: #### U RTPCR #### [facility] [address] [place] [address] Dr. Dwight Waters ER URINE PROFILEon 2 Bilirubin Ql (U) Unable to perform te sting due to color interference. Abnormal NEGATIVE [facility] Comment on above: Performed By: #### U RTPCR #### [facility] [address] [place] [address] Dr. Dwight Waters Clarity (U) TURBID Abnormal CLEAR [facility] Comment on above: Performed By: #### U RTPCR #### [facility] [address] [place] [address] Dr. Dwight Waters Color (U) RED Abnormal YELLOW [facility] Comment on above: Performed By: #### U RTPCR #### [facility] [address] [place] [address] Dr. Dwight Waters ERUAHD A micrscopic examina tion will be performed if indicated. Normal [facility] Comment on above: Performed By: #### U RTPCR #### [facility] [address] [place] [address] Dr. Dwight Waters Glucose Ql (U) Unable to perform te sting due to color interference. Abnormal NEGATIVE [facility] Comment on above: Performed By: #### U RTPCR #### [facility] [address] [place] [address] Dr. Dwight Waters Hemoglobin Ql (U) Unable to perform te sting due to color interference. Abnormal NEGATIVE [facility] Comment on above: Performed By: #### U RTPCR #### [facility] [address] [place] [address] Dr. Dwight Waters Ketones Ql (U) Unable to perform te sting due to color interference. Abnormal NEGATIVE [facility] Comment on above: Performed By: #### U RTPCR #### [facility] [address] [place] [address] Dr. Dwight Waters LEUKOCYTES Unable to perform te sting due to color interference. Abnormal NEGATIVE [facility] Comment on above: Performed By: #### U RTPCR #### [facility] [address] [place] [address] Dr. Dwight Waters Nitrite Ql (U) Unable to perform te sting due to color interference. Abnormal NEGATIVE [facility] Comment on above: Performed By: #### U RTPCR #### [facility] [address] [place] [address] Dr. Dwight Waters pH (U) 6.5 [pH] Normal 5-[address] [facility] Comment on above: Performed By: #### U RTPCR #### [facility] [address] [place] [address] Dr. Dwight Waters SPEC GRAVITY 1.020 Normal 1.005-<=1.02 5 [facility] Comment on above: Performed By: #### U RTPCR #### [facility] [address] [place] [address] Dr. Dwight Waters UA PROTEIN Unable to perform te sting due to color interference. Normal NEGATIVE/ TRACE [facility] Comment on above: Performed By: #### U RTPCR #### [facility] [address] [place] [address] Dr. Dwight Waters UR MICRO IND INDICATED Normal [facility] Comment on above: Performed By: #### U RTPCR #### [facility] [address] [address] [address] Dwight Waters UROBILINOGEN Unable to perform te sting due to color interference. Normal 0.2 - 1.0 [facility] Comment on above: Performed By: #### U RTPCR #### [facility] [address] [place] [address] Dr. Dwight Waters PROF 14(COMP METB)on 022 Albumin [Mass/Vol] 3.8 g/dL Normal 3.4-5.0 [facility] Comment on above: Performed By: #### C MP #### [facility] [address] [place] [address] Dr. Dwight Waters Albumin/Globulin [Mass ratio] 1.1 {ratio} Normal [facility] Comment on above: Performed By: #### C MP #### [facility] [address] [place] [address] Dr. Dwight Waters ALP [Catalytic activity/Vol] 106 U/L Normal 46-116 [facility] Comment on above: Performed By: #### C MP #### [facility] [address] [place] [address] Dr. Dwight Waters ALT [Catalytic activity/Vol] 30 U/L Normal 16-63 [facility] Comment on above: Performed By: #### C MP #### [facility] [address] [place] [address] Dr. Dwight Waters Anion gap [Moles/Vol] 11.7 mmol/L Normal [facility] Comment on above: Performed By: #### C MP #### [facility] [address] [place] [address] Dr. Dwight Waters AST [Catalytic activity/Vol] 16 U/L Normal 15-[address] [facility] Comment on above: Performed By: #### C MP #### [facility] [address] [place] [address] Dr. Dwight Waters Bilirubin [Mass/Vol] 0.6 mg/dL Normal 0.2-1.[address] [facility] Comment on above: Performed By: #### C MP #### [facility] [address] [address] [address] Dwight Waters Calcium [Mass/Vol] 9.1 mg/dL Normal 8.5-10.1 [facility] Comment on above: Performed By: #### C MP #### [facility] [address] [address] [address] Dwight Waters CO2 [Moles/Vol] 27.4 mmol/L Normal 21.0-32.0 [facility] Comment on above: Performed By: #### C MP #### [facility] [address] [address] [address] Dwight Waters Creatinine [Mass/Vol] 1.18 mg/dL Normal 0.70-1.30 [facility] Comment on above: Performed By: #### C MP #### [facility] [address] [address] [address] Dwight Waters EGFR-AF GHANAIAN >60 Normal >=60 [facility] Comment on above: Performed By: #### C MP #### [facility] [address] [address] [address] Dwight Waters EGFR-NON AF GHANAIAN >60 Normal >=60 [facility] Comment on above: Performed By: #### C MP #### [facility] [address] [address] [address] Dwight Waters Globulin (S) [Mass/Vol] 3.6 g/dL Normal [facility] Comment on above: Performed By: #### C MP #### [facility] [address] [address] [address] Dwight Waters Glucose [Mass/Vol] 192 mg/dL Critically high 74-106 [facility] Comment on above: Performed By: #### C MP #### [facility] [address] [place] [address] Dr. Dwight Waters Potassium [Moles/Vol] 4.1 mmol/L Normal 3.5-5.1 [facility] Comment on above: Performed By: #### C MP #### [facility] [address] [address] [address] Dwight Waters Protein [Mass/Vol] 7.4 g/dL Normal 6.4-8.[address] [facility] Comment on above: Performed By: #### C MP #### [facility] [address] [address] [address] Dwight Waters Sodium [Moles/Vol] 142 mmol/L Normal 136-[address] [facility] Comment on above: Performed By: #### C MP #### [facility] [address] [place] [address] Dr. Dwight Waters Urea nitrogen [Mass/Vol] 17.0 mg/dL Normal 7.0-18.0 [facility] Comment on above: Performed By: #### C MP #### [facility] [address] [place] [address] Dr. Dwight Waters Urea nitrogen/Creatinine [Mass ratio] 14.4 mg/mg Normal [facility] Comment on above: Performed By: #### C MP #### [facility] [address] [place] [address] Dr. Dwight Waters URINE MICROSCOPIC ONLYon BACTERIA NONE SEEN Normal NONE SEEN [facility] Comment on above: Performed By: #### U RTPCR #### [facility] [address] [place] [address] Dr. Dwight Waters Bacteria identified Cx Nom (U) NOT INDICATED Normal [facility] Comment on above: Performed By: #### U RTPCR #### [facility] [address] [place] [address] Dr. Dwight Waters CAST NONE SEEN Normal NONE SEEN [facility] Comment on above: Performed By: #### U RTPCR #### [facility] [address] [place] [address] Dr. Dwight Waters Crystals LM Nom (Urine sed) NONE SEEN Normal NONE SEEN [facility] Comment on above: Performed By: #### U RTPCR #### [facility] [address] [place] [address] Dr. Dwight Waters Epithelial cells LM Ql (Urine sed) RARE Normal NONE SEEN /RARE [facility] Comment on above: Performed By: #### U RTPCR #### [facility] [address] [address] [address] Dwight Waters MUCOUS NONE SEEN Normal NONE SEEN [facility] Comment on above: Performed By: #### U RTPCR #### [facility] [address] [address] [address] Dwight Waters RBC (U) [#/Vol] /uL Abnormal 0-2 [facility] Comment on above: Performed By: #### U RTPCR #### [facility] [address] [address] [address] Dwight Waters WBC NONE SEEN Normal NONE SEEN [facility] Comment on above: Performed By: #### U RTPCR #### [facility] [address] [address] [address] Dwight Waters K (Potassium)on 01-06-2020 Potassium [Moles/Vol] 4.4 mmol/L Normal 3.7-5.3 [facility] Comment on above: Performed By: #### K #### [facility] [address] [place] [address] Concrete Mixer Operator Helper: Kehinde Woodward MD Potassiumon 01-06-2020 Potassium [Moles/Vol] 4.4 mmol/L 3.7 - 5.3 mmol/L [facility] Work Phone: Hemoglobin and Hematocrit, B loodon 10-24-2019 Hematocrit (Bld) [Volume fraction] 23.6 % Low 40.7 - 50.3 % [place], [place] Hemoglobin (Bld) [Mass/Vol] 7.3 g/dL Low 13 - 17 g/dL [place] Interpretation and review of laboratory results Abnormal [place] Hgb/Hcton 10-24-2019 Hematocrit (Bld) [Volume fraction] 23.6 % Low 40.7-50.3 [facility] Comment on above: Performed By: #### H H #### [facility] [address] [place] [address] Concrete Mixer Operator Helper: Kehinde Woodward MD Hemoglobin (Bld) [Mass/Vol] 7.3 g/dL Low 13.0-17.0 [facility] Comment on above: Performed By: #### H H #### [facility] [address] [place] [address] Concrete Mixer Operator Helper: Kehinde Woodward MD Hemoglobinon 08-27-2019 Hemoglobin (Bld) [Mass/Vol] 7.5 g/dL Low 13.0-17.0 [facility] Comment on above: Performed By: #### H GB #### [facility] [address] [place] [address] Concrete Mixer Operator Helper: Kehinde Woodward MD Hemoglobin (Bld) [Mass/Vol] 7.5 g/dL Low 13 - 17 g/dL [place] Interpretation and review of laboratory results Abnormal [place] Hemoglobinon 08-08-2019 Hemoglobin (Bld) [Mass/Vol] 8.3 g/dL Low 13.0-17.0 [facility] Comment on above: Performed By: #### H GB #### [facility] [address] [place] [address] Concrete Mixer Operator Helper: Kehinde Woodward MD Hemoglobin (Bld) [Mass/Vol] 8.3 g/dL Low 13 - 17 g/dL [place] Interpretation and review of laboratory results Abnormal [place] Hemoglobinon 08-04-2019 Hemoglobin (Bld) [Mass/Vol] 8.0 g/dL Low 13.0-17.0 [facility] Comment on above: Performed By: #### H GB #### [facility] [address] [place] [address] [employer] Mixer Operator Helper: Kehinde Woodward MD Hemoglobin A1Con 08-03-2019 HbA1c (Bld) [Mass fraction] % Low 4.8-5.9 [facility] Comment on above: Result Comment: The ADA and AACC recommend providing the estimated average glucose result to permit better patient understanding of their HBA1c result. Performed By: #### G LYHGB #### [facility] [address] [place] [address] Concrete Mixer Operator Helper: Kehinde Woodward MD Glucose [Mass/Vol] mg/dL mg/dL [place] Comment on above: The ADA and AACC rec ommend providing the estimated average glucose result to permit better patient understanding of their HBA1c result. HbA1c (Bld) [Mass fraction] % Low 4.8 - 5.9 % [place] Interpretation and review of laboratory results Abnormal [place] Hemoglobinon 08-01-2019 Hemoglobin (Bld) [Mass/Vol] 8.1 g/dL Low 13.0-17.0 [facility] Comment on above: Performed By: #### H GB #### [address] [place] [address] Concrete Mixer Operator Helper: Kehinde Woodward MD Hemoglobin (Bld) [Mass/Vol] 8.1 g/dL Low 13 - 17 g/dL [place] Interpretation and review of laboratory results Abnormal [place] Hgb/Hcton 06-10-2019 Hematocrit (Bld) [Volume fraction] 24.3 % Low 40.7-50.3 [facility] Comment on above: Performed By: #### H H #### [address] [place] [address] Concrete Mixer Operator Helper: Kehinde Woodward MD Hemoglobin (Bld) [Mass/Vol] 7.4 g/dL Low 13.0-17.0 [facility] Comment on above: Performed By: #### H H #### [facility] [address] [place] [address] Concrete Mixer Operator Helper: Kehinde Woodward MD Hemoglobinon 06-01-2019 Hemoglobin (Bld) [Mass/Vol] 7.2 g/dL Low 13.0-17.0 [facility] Comment on above: Performed By: #### H GB #### [facility] [address] [place] [address] Concrete Mixer Operator Helper: Kehinde Woodward MD K (Potassium)on 01-14-2019 Potassium [Moles/Vol] 3.6 mmol/L Low 3.7-5.3 [facility] Comment on above: Performed By: #### K #### [facility] [address] [place] [address] Concrete Mixer Operator Helper: Kehinde Woodward MD Otheron 10-19-2018 IMPRESSION: 1. [...] characteristics determined by Toxicology Laboratory at [facility]. It has not been cleared or [...] Amitriptyline(50), Amphetamine(250), Atenolol(500), Barbiturates(1000), Benzoylecgonine(50), Buprenorphine(50), Bupropion(25), Caffeine(29561), Chlordiazepoxide(50), Chlorpheniramine(100), Chlorpromazine(50), Citalopram(100), Clonazepam(200), Cocaine(25), Codeine(200), [...] [place], QASIM TOXICOLOGY SCREEN URINE - UD [facility] 10-12-2018 Drugs identified Screen Nom (U) For Medical Purposes Only, Non-forensic, screen results are presumptive. No confirmatory testing will follow. Invalid Interpretation Shira L[place]IS, QASIM Comment on above: This Liquid Chromato graphy Mass Spectrometry (LC/MS/MS) test was developed and its performance characteristics determined by Toxicology Laboratory at [facility]. It has not been cleared or [...] Amitriptyline(50), Amphetamine(250), Atenolol(500), Barbiturates(200), Benzoylecgonine(50), Buprenorphine(500), Bupropion(25), Caffeine(89137), Cannabinoids(THC)(50), Chlordiazepoxide(50), Chlorpheniramine(100), Chlorpromazine(50), Citalopram(100), Clonazepam(200), Cocaine(25), [...] index (BMI) [Ratio] 29.43 kg/m2 Rebeca Gutierrez COTTON MACHINE OPERATOR-CLIENT DEVELOPMENT DIRECTOR Work Phone: [facility] 06-17-2024 08:37-0400 Body temperature 97.39 [degF] Rebeca Gutierrez COTTON MACHINE OPERATOR-CLIENT DEVELOPMENT DIRECTOR Work Phone: [facility] 06-17-2024 08:37-0400 Body weight 85.23 kg Rebeca Gutierrez COTTON MACHINE OPERATOR-CLIENT DEVELOPMENT DIRECTOR Work Phone: [facility] 06-17-2024 08:37-0400 Diastolic blood pressure 75 mm[Hg] Rebeca Gutierrez COTTON MACHINE OPERATOR-CLIENT DEVELOPMENT DIRECTOR Work Phone: [facility] 06-17-2024 08:37-0400 Heart rate 53 /min Rebeca Gutierrez COTTON MACHINE OPERATOR-CLIENT DEVELOPMENT DIRECTOR Work Phone: [facility] 06-17-2024 08:37-0400 Systolic blood pressure 143 mm[Hg] Rebeca Gutierrez COTTON MACHINE OPERATOR-CLIENT DEVELOPMENT DIRECTOR Work Phone: [facility] 06-17-2024 08:36-0400 Body mass index (BMI) [Ratio] 29.43 kg/m2 Daisha Sobotka DO Work Phone: [facility] 06-17-2024 08:36-0400 Body temperature 97.39 [degF] Daisha Sobotka DO Work Phone: [facility] 06-17-2024 08:36-0400 Body weight 85.23 kg Daisha Sobotka DO Work Phone: [facility] 06-17-2024 08:36-0400 Diastolic blood pressure 75 mm[Hg] Daisha Max DO Work Phone: [facility] 06-17-2024 08:36-0400 Heart rate 53 /min Daisha Gamboaotka DO Work Phone: [facility] 06-17-2024 08:36-0400 Systolic blood pressure 143 mm[Hg] Daisha Mtzka DO Work Phone: [facility] 02-26-2024 09:07-0400 Diastolic blood pressure 56 mm[Hg] Candie Almaguer MD Work Phone: [facility] 02-26-2024 09:07-0400 Heart rate 65 /min Candie Almaguer MD Work Phone: [facility] 02-26-2024 09:07-0400 Systolic blood pressure 113 mm[Hg] Candie Almaguer MD Work Phone: [facility] 02-26-2024 09:06-0400 Body height 170.2 cm Candie Almaguer MD Work Phone: [facility] 02-26-2024 09:06-0400 Body mass index (BMI) [Ratio] 28.9 kg/m2 Candie Almaguer MD Work Phone: [facility] 02-26-2024 09:06-0400 Body weight 83.69 kg Candie Almaguer MD Work Phone: [facility] 02-26-2024 09:06-0400 Respiratory rate 20 /min Candie Almaguer MD Work Phone: [facility] 02-26-2024 09:06-0400 SaO2% (BldA) [Mass fraction] 97 % Candie Almaguer MD Work Phone: [facility] 01-23-2024 15:04-0500 Body temperature 97.9 [degF] Kevin Sage MD Work Phone: [facility] 01-23-2024 15:04-0500 Diastolic blood pressure 67 mm[Hg] Kevin Sage MD Work Phone: [facility] 01-23-2024 15:04-0500 Heart rate 51 /min Kevin Sage MD Work Phone: [facility] 01-23-2024 15:04-0500 Respiratory rate 16 /min Kevin Sage MD Work Phone: [facility] 01-23-2024 15:04-0500 SaO2% (BldA) [Mass fraction] 94 % Kevin Sage MD Work Phone: [facility] 01-23-2024 15:04-0500 Systolic blood pressure 151 mm[Hg] Kevin Sage MD Work Phone: [facility] 01-23-2024 10:46-0500 Body mass index (BMI) [Ratio] 30.94 kg/m2 Kevin Sage MD Work Phone: [facility] 01-23-2024 10:46-0500 Body weight 89.6 kg Kevin Sage MD Work Phone: [facility] 01-18-2024 11:21-0500 Body height 170.2 cm Kevin Sage MD Work Phone: [facility] 01-06-2024 09:04-0500 Body height 170.2 cm Zuly Bruno NP Work Phone: [facility] 01-06-2024 09:04-0500 Body mass index (BMI) [Ratio] 32.42 kg/m2 Zuly Bruno NP Work Phone: [facility] 01-06-2024 09:04-0500 Body temperature 97.81 [degF] Zulytray Torresholz [employer] MECHANIC Work Phone: [facility] 01-06-2024 09:04-0500 Body weight 93.89 kg Zulytray Torresholz [employer] MECHANIC Work Phone: [facility] 01-06-2024 09:04-0500 Diastolic blood pressure 70 mm[Hg] Zuly Brianholz [employer] MECHANIC Work Phone: [facility] 01-06-2024 09:04-0500 Heart rate 95 /min Zuly Lexiehholz [employer] MECHANIC Work Phone: [facility] 01-06-2024 09:04-0500 Respiratory rate 17 /min Zuly Brianholz [employer] MECH[employer]IC Work Phone: [facility] 01-06-2024 09:04-0500 SaO2% (BldA) [Mass fraction] 99 % Zuly Brianholz [employer] MECHANIC Work Phone: [facility] 01-06-2024 09:04-0500 Systolic blood pressure 138 mm[Hg] Zuly Lexiehholz [employer] MECHANIC Work Phone: [facility] 09-11-2023 10:31-0400 Body temperature 97.81 [degF] Steve Yeison MBBS Work Phone: [facility] 09-11-2023 10:31-0400 Diastolic blood pressure 66 mm[Hg] Steve Yeison MBBS Work Phone: [facility] 09-11-2023 10:31-0400 Heart rate 70 /min Steve Yeison MBBS Work Phone: [facility] 09-11-2023 10:31-0400 Respiratory rate 20 /min Steve Yeison MBBS Work Phone: [facility] 09-11-2023 10:31-0400 SaO2% (BldA) [Mass fraction] 91 % Steve Yeison MBBS Work Phone: [facility] 09-11-2023 10:31-0400 Systolic blood pressure 129 mm[Hg] Steve Yeison MBBS Work Phone: [facility] 09-10-2023 15:50-0400 Body mass index (BMI) [Ratio] 31.99 kg/m2 Steve Yeison MBBS Work Phone: [facility] 09-10-2023 15:50-0400 Body weight 92.67 kg Steve Yeison MBBS Work Phone: [facility] 09-02-2023 07:32-0400 Body height 170.2 cm Steve Yeison MBBS Work Phone: [facility] 08-28-2023 13:33-0400 Body height 170.2 cm Steve Yeison MBBS Work Phone: [facility] 08-28-2023 13:33-0400 Body mass index (BMI) [Ratio] 32.12 kg/m2 Steve Yeison MBBS Work Phone: [facility] 08-28-2023 13:33-0400 Body temperature 97.3 [degF] Steve Yeison MBBS Work Phone: [facility] 08-28-2023 13:33-0400 Body weight 93.03 kg Steve Yeison MBBS Work Phone: [facility] 08-28-2023 13:33-0400 Diastolic blood pressure 41 mm[Hg] Steve Yeison MBBS Work Phone: [facility] 08-28-2023 13:33-0400 Heart rate 116 /min Steve Yeison MBBS Work Phone: [facility] 08-28-2023 13:33-0400 Systolic blood pressure 106 mm[Hg] Steve Yeison MBBS Work Phone: [facility] 06-12-2023 14:50-0400 Body mass index (BMI) [Ratio] 33.8 kg/m2 Rebeca Gutierrez COTTON MACHINE OPERATOR-CLIENT DEVELOPMENT DIRECTOR Work Phone: [facility] 06-12-2023 14:50-0400 Body temperature 97.3 [degF] Rebeca Gutierrez COTTON MACHINE OPERATOR-CLIENT DEVELOPMENT DIRECTOR Work Phone: [facility] 06-12-2023 14:50-0400 Body weight 97.89 kg Rebeca Gutierrez COTTON MACHINE OPERATOR-CLIENT DEVELOPMENT DIRECTOR Work Phone: [facility] 06-12-2023 14:50-0400 Diastolic blood pressure 77 mm[Hg] Rebeca Gutierrez COTTON MACHINE OPERATOR-CLIENT DEVELOPMENT DIRECTOR Work Phone: [facility] 06-12-2023 14:50-0400 Heart rate 76 /min Rebeca Gutierrez COTTON MACHINE OPERATOR-CLIENT DEVELOPMENT DIRECTOR Work Phone: [facility] 06-12-2023 14:50-0400 Systolic blood pressure 146 mm[Hg] Rebeca Gutierrez COTTON MACHINE OPERATOR-CLIENT DEVELOPMENT DIRECTOR Work Phone: [facility] 01-16-2023 08:57-0500 Body height 170.2 cm [facility] Work Phone: [facility] 01-16-2023 08:57-0500 Body mass index (BMI) [Ratio] 33.66 kg/m2 [facility] Work Phone: [facility] 01-16-2023 08:57-0500 Body temperature 97.3 [degF] [facility] Work Phone: [facility] 01-16-2023 08:57-0500 Body weight 97.48 kg [facility] Work Phone: [facility] 01-16-2023 08:57-0500 Diastolic blood pressure 75 mm[Hg] [facility] Work Phone: [facility] 01-16-2023 08:57-0500 Heart rate 76 /min [facility] Work Phone: [facility] 01-16-2023 08:57-0500 Systolic blood pressure 142 mm[Hg] [facility] Work Phone: [facility] 09-10-2022 09:38-0400 Body height 170.2 cm Rayn Yepez MD Work Phone: [facility] 09-10-2022 09:38-0400 Body mass index (BMI) [Ratio] 33.67 kg/m2 Ryan Yepez MD Work Phone: [facility] 09-10-2022 09:38-0400 Body weight 97.52 kg Ryan Yepez MD Work Phone: [facility] 09-10-2022 09:38-0400 Diastolic blood pressure 83 mm[Hg] Ryan Yepez MD Work Phone: [facility] 09-10-2022 09:38-0400 Heart rate 64 /min Ryan Yepez MD Work Phone: [facility] 09-10-2022 09:38-0400 SaO2% (BldA) [Mass fraction] 96 % Ryan Yepez MD Work Phone: [facility] 09-10-2022 09:38-0400 Systolic blood pressure 129 mm[Hg] Ryan Yepez MD Work Phone: [facility] 07-07-2022 13:48-0400 Diastolic blood pressure 76 mm[Hg] Ryan Yepez MD Work Phone: [facility] 07-07-2022 13:48-0400 Heart rate 82 /min Ryan Yepez MD Work Phone: [facility] 07-07-2022 13:48-0400 SaO2% (BldA) [Mass fraction] 96 % Rayn Yepez MD Work Phone: [facility] 07-07-2022 13:48-0400 Systolic blood pressure 141 mm[Hg] Ryan Yepez MD Work Phone: [facility] 06-27-2022 13:32-0400 Body height 170.2 cm Ryan Yepez MD Work Phone: [phone] [address] 06-27-2022 13:32-0400 Body mass index (BMI) [Ratio] 34.24 kg/m2 Ryan Yepez MD Work Phone: 2(370)[phone] [address] 06-27-2022 13:32-0400 Body temperature 98.6 [degF] Ryan Yepez MD Work Phone: [facility] 06-27-2022 13:32-0400 Body weight 99.16 kg Ryan Yepez MD Work Phone: [phone](894)[phone] [address] 06-27-2022 13:32-0400 Diastolic blood pressure 78 mm[Hg] Ryan Yepez MD Work Phone: [facility] 06-27-2022 13:32-0400 Heart rate 77 /min Ryan Yepez MD Work Phone: [facility] 06-27-2022 13:32-0400 SaO2% (BldA) [Mass fraction] 95 % Ryan Yepez MD Work Phone: [facility] 06-27-2022 13:32-0400 Systolic blood pressure 121 mm[Hg] Ryan Yepez MD Work Phone: [facility] 06-27-2022 10:52-0400 Body height 170.2 cm Rena Brewster RN [facility] 06-27-2022 10:52-0400 Body mass index (BMI) [Ratio] 34.46 kg/m2 Rena Brewster RN [facility] 06-27-2022 10:52-0400 Body temperature 98.2 [degF] Rena Brewster RN [facility] 06-27-2022 10:52-0400 Body weight 99.79 kg Rena Brewster RN [facility] 06-27-2022 10:52-0400 Diastolic blood pressure 73 mm[Hg] Rena Brewster RN [facility] 06-27-2022 10:52-0400 Heart rate 78 /min Rena Brewster RN [facility] 06-27-2022 10:52-0400 Respiratory rate 20 /min Rena Brewster RN [facility] 06-27-2022 10:52-0400 SaO2% (BldA) [Mass fraction] 97 % Rena Brewster RN [facility] 06-27-2022 10:52-0400 Systolic blood pressure 135 mm[Hg] Rena Brewster RN [facility] 06-12-2022 14:23-0400 Body mass index (BMI) [Ratio] 34.59 kg/m2 Steve Latham MBBS Work Phone: [facility] 06-12-2022 14:23-0400 Body temperature 97 [degF] Steve Farrari MBBS Work Phone: [facility] 06-12-2022 14:23-0400 Body weight 100.2 kg Stvee Farrari MBBS Work Phone: [facility] 06-12-2022 14:23-0400 Diastolic blood pressure 66 mm[Hg] Steve Farrari MBBS Work Phone: [facility] 06-12-2022 14:23-0400 Heart rate 63 /min Steve LEIGH Work Phone: [facility] 06-12-2022 14:23-0400 Systolic blood pressure 133 mm[Hg] Stevemassiel Farrarmatthew LEIGH Work Phone: [facility] 05-20-2022 15:21-0400 Body temperature 97.9 [degF] Gian Villatoro MD Work Phone: [facility] 05-20-2022 15:21-0400 Diastolic blood pressure 64 mm[Hg] Gian Villatoro MD Work Phone: [facility] 05-20-2022 15:21-0400 Heart rate 55 /min Gian Villatoro MD Work Phone: [facility] 05-20-2022 15:21-0400 Respiratory rate 15 /min Gian Villatoro MD Work Phone: [facility] 05-20-2022 15:21-0400 SaO2% (BldA) [Mass fraction] 95 % Gian Villatoro MD Work Phone: [facility] 05-20-2022 15:21-0400 Systolic blood pressure 145 mm[Hg] Gian Villatoro MD Work Phone: [facility] 05-19-2022 12:15-0400 Body mass index (BMI) [Ratio] 35.87 kg/m2 Gian Villatoro MD Work Phone: [facility] 05-19-2022 12:15-0400 Body weight 103.92 kg Gian Villatoro MD Work Phone: [facility] Comment on above: standing scale 05-16-2022 16:19-0400 Body height 170.2 cm Gian Villatoro MD Work Phone: [phone] 10-19-2018 08:44-0500 BMI (Body Mass Index) 26.58 kg/m2 [facility]: 10-19-2018 08:44-0500 BP Diastolic 76 mm[Hg] [facility] Work Phone: 10-19-2018 08:44-0500 BP Systolic 144 mm[Hg] [facility] Work Phone: 10-19-2018 08:44-0500 Height 172.7 cm [facility] Work Phone: 10-19-2018 08:44-0500 Pulse (Heart Rate) 92 /min [facility] Work Phone: 10-19-2018 08:44-0500 Pulse Oximetry 99 % [facility] Work Phone: 10-19-2018 08:44-0500 Respiratory Rate 16 /min [facility] Work Phone: 10-19-2018 08:44-0500 Weight 79.29 kg [facility] Work Phone: 10-12-2018 09:50-0500 BMI (Body Mass Index) 27.24 kg/m2 [facility] Work Phone: 10-12-2018 09:50-0500 Body Temperature 98.6 [degF] [facility] Work Phone: 10-12-2018 09:50-0500 BP Diastolic 80 mm[Hg] [facility] Work Phone: 10-12-2018 09:50-0500 BP Systolic 157 mm[Hg] Elmahdi [facility] Work Phone: 10-12-2018 09:50-0500 Height 169.5 cm [facility] Work Phone: 10-12-2018 09:50-0500 Pulse (Heart Rate) 94 /min [facility] Work Phone: 10-12-2018 09:50-0500 Weight 78.29 kg [facility] Work Phone: Encounters Encounter Date Encounter Type Care Provider Facility Start: 06-23-2024 End: 06-23-2024 ambulatory [facility]eka Munoz [facility] Start: 06-23-2024 End: 06-23-2024 Patient encounter procedure Meka Munoz [facility] [place] Start: 06-17-2024 End: 06-17-2024 Office outpatient visit 25 minutes Daisha Max DO Work Phone: [facility] Comment on above: Liver lesion (Primar y Dx); Liver transplant recipient; High risk medication use; Therapeutic drug monitoring; 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 Start: 05-26-2024 End: 05-26-2024 ambulatory Evan Bolton RPh,PharmD Pharmacy Outpatient [facility] [place] Start: 05-26-2024 End: 05-26-2024 Patient encounter procedure Evan Bolton RPh,PharmD [facility] [place] Start: 05-13-2024 End: 05-13-2024 ambulatory [facility] Start: 04-18-2024 End: 04-18-2024 ambulatory ZULY BRUNO Not Available Start: 03-24-2024 End: 03-24-2024 Patient encounter procedure Angel Carpio RPh,PharmD Pharmacy Outpatient [facility] Start: 03-24-2024 End: 03-24-2024 ambulatory Angel Carpio [facility],PharmD Pharmacy Outpatient [facility] [place] Start: 03-22-2024 End: 03-22-2024 ambulatory JOHNNA BRINK [...] 03-02-2024 ambulatory Meka Munoz [facility] [place] Start: 03-02-2024 End: 03-02-2024 Patient encounter procedure Meka Munoz [facility] [place] Start: 03-01-2024 ambulatory ZULY AICHHOLZ Facility: [facility] Start: 03-01-2024 End: 03-01-2024 ambulatory JOHNNA BRINK Not Available Start: 02-26-2024 ambulatory ZULY AICHHOLZ Facility: [facility] Start: 02-26-2024 End: 02-26-2024 Office outpatient new 30 minutes Candie Almaguer MD Work Phone: [facility] Comment on above: Heart failure, diast olic, acute (Primary Dx) Start: 02-26-2024 ambulatory ZULY AICHHOLZ Facility: [facility] Start: 02-25-2024 End: 02-25-2024 ambulatory FIDELINA DANIEL Not Available Start: 02-23-2024 End: 02-23-2024 ambulatory PALMA PALACIOS Not Available Start: 02-11-2024 End: 02-11-2024 ambulatory ZULY AICHHOLZ Not Available Start: 01-16-2024 Encounter for other preprocedural examination KELVIN PACHECO [facility] Start: 01-16-2024 End: 01-23-2024 Evaluation and management of inpatient Kevin Sage MD Work Phone: [email or web address] Comment on above: Pleural effusion on right Start: 01-16-2024 End: 01-23-2024 Patient encounter status Kevin Sage MD Work Phone: [facility] Work Phone: Start: 01-12-2024 End: [...] Office outpatient visit 25 minutes Zuly Marissaz [employer] Work Phone: [facility] Comment on above: Bilateral lower extr emity edema (Primary Dx); 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); Atherosclerosis 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); Obesity (BMI 30-39.9); DARLENE (obstructive sleep apnea); Tremor; Immunocompromised ([facility]); Primary hypertension ([facility]); Shortness of breath Start: 01-01-2024 Clinisync Result Encounter Generic External Data Provider [facility] External Department Unsolicited Start: 01-01-2024 Clinisync Result Encounter Generic External Data Provider [facility] External Department Unsolicited Start: 11-03-2023 End: 11-03-2023 ambulatory ZULY AICHHOLZ Not Available Start: 10-06-2023 ambulatory Angel Fete RPh,PharmD [facility] Outpatient [facility] Start: 10-06-2023 Patient encounter procedure Angel Fete RPh,PharmD [facility] [place] Start: 09-29-2023 ambulatory ZULY AICHHOLZ Facility: [facility] Start: 09-23-2023 ambulatory ZULY BRUNO Facility: [facility] Start: 09-15-2023 ambulatory ZULY GUTHRIE CLINICOmer Facility: [facility] Start: 08-28-2023 End: 09-11-2023 Evaluation and management of inpatient Steve Latham MBBS Work Phone: [id number] Start: 08-28-2023 End: 08-28-2023 Office outpatient visit 25 minutes Steve Latham MBBS Work Phone: [facility] Comment on above: Immunosuppressed sta tus (Primary Dx); Kidney replaced by transplant; Aftercare following organ transplant; High risk medication use; Other general symptoms and signs; Abnormal blood chemistry; Hypertension secondary to other renal disorders Start: 08-28-2023 ambulatory STEVE LATHAM Facility:[facility] Start: 08-19-2023 ambulatory Meka rueda [facility] [place] Start: 08-19-2023 Patient encounter procedure Meka Munoz [facility] Out[facility] Start: 06-12-2023 End: 06-12-2023 Office outpatient visit 25 minutes Steve Latham MBBS Work Phone: [facility] Comment on above: 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) Start: 06-10-2023 ambulatory Maren Bar RPh,PharmD [facility] [place] Start: 06-10-2023 Patient encounter procedure Maren Dipika RPh,PharmD [facility] Start: 04-28-2023 End: 04-29-[address] DOCTOR EVANS Facility: Start: 03-12-2023 ambulatory Angel Madsene RPh,PharmD [facility] Out[facility] Start: 03-12-2023 Patient encounter procedure Angel Madsene RPh,PharmD [facility] [place] Start: 03-10-2023 ambulatory Angel Madsene RPh,PharmD [facility] [place] Start: 03-10-2023 Patient encounter procedure Angel Madsene RPh,PharmD [facility] [place] Start: 03-02-2023 End: 03-03-[address] DOCTOR EVANS Facility:[facility] Start: 01-16-2023 End: 01-16-2023 Office outpatient visit 25 minutes Daisha Max DO Work Phone: [facility] Comment on above: Abnormal blood chemi [...] MD Work Phone: [facility] Comment on above: BPH with obstruction /lower urinary tract symptoms (Primary Dx); Encounter for screening for malignant neoplasm of prostate Start: 08-28-2022 End: 08-29-2022 ambulatory ROB BRUNO Facility:[facility] Start: 08-14-2022 End: 08-15-[address] DOCTOR EVANS Facility:[facility] Start: 07-07-2022 End: 07-07-2022 Patient encounter procedure Ryan Yepez MD Work Phone: [facility] Comment on above: Other hydronephrosis (Primary Dx); [...] MD Work Phone: [facility] Comment on above: Other hydronephrosis (Primary Dx) [...] Phone: [facility] Comment on above: Immunosuppressed sta [...] 03-14-2022 ambulatory Comfort Rivera [facility] Work Phone: Pharmacy Outpatient [facility] Start: 03-14-2022 Patient encounter procedure Comfort Rivera [facility] Work Phone: Pharmacy Outpatient [facility] Start: 06-14-2021 End: 06-14-2021 ambulatory Comfort Rivera [facility] Work Phone: [facility] Start: 06-14-2021 Patient encounter procedure Comfort Rivera [facility] Work Phone: [facility] Start: 01-20-2020 End: 01-27-2020 Patient encounter procedure PEPE CASE Facility:[facility] Start: 01-06-2020 End: 01-07-2020 Patient encounter procedure RENA GUDINO [facility] Start: 01-06-2020 End: 01-06-2020 Subsequent hospital visit by physician [facility] Start: 10-24-2019 End: 10-25-2019 Patient encounter procedure TANA CAMPA [facility] Start: 10-24-2019 End: 10-24-2019 Subsequent hospital visit by physician [facility] Start: 08-27-2019 End: 08-28-2019 [facility] Start: 08-27-2019 End: 08-27-2019 Subsequent hospital visit by physician [facility] Start: 08-08-2019 End: 08-09-2019 [facility] Start: 08-08-2019 End: 08-08-2019 Subsequent hospital visit by physician [facility] Start: 08-03-2019 End: 08-04-2019 [facility] Start: 08-03-2019 End: 08-03-2019 Subsequent hospital visit by physician [facility] Start: 08-01-2019 End: 08-02-2019 [facility] Start: 08-01-2019 End: 08-01-2019 Subsequent hospital visit by physician [facility] Start: 06-10-2019 End: 06-11-2019 Patient encounter procedure RENA GUDINO [facility] Start: 06-01-2019 End: 06-02-2019 Patient encounter procedure RENA GUDINO [facility] Start: 01-14-2019 End: 01-15-2019 Patient encounter procedure RENA GUDINO [facility] Start: 11-17-2018 End: 11-17-2018 Patient encounter procedure Fidelina [facility] [place] [facility] Office Comment on above: Social Work Follow-u p Start: 10-19-2018 End: 10-19-2018 Patient encounter [facility] Pre Transplant Office Comment on above: [...] 10-13-2018 End: 10-13-2018 Patient encounter procedure Autumn [facility] Office Comment on above: Reschedule Outside Medical Allan rds Request Start: 10-12-2018 End: 10-12-2018 Patient encounter procedure Sophie Cary [facility] Pre Transplant Office Comment on above: Alcoholic cirrhosis, unspecified whether ascites present (Primary Dx); Pre-transplant evaluation for liver transplant Start: 10-12-2018 End: 10-12-2018 Office outpatient new 60 minutes Alfredito Restrepo Work Phone: [facility] Pre Transplant Office Comment on above: Alcoholic cirrhosis, unspecified whether ascites present; ESRD (end stage renal disease) on dialysis; Pre-transplant evaluation for liver transplant Start: 10-06-2018 End: 10-06-2018 Patient encounter procedure Yovani Orr Work Phone: Department of Radiology Comment on above: Canceled (Insurance Company Redirected Pt) Start: 10-05-2018 Patient encounter status Comfort Rivera [facility] Work Phone: [facility] Procedures Date Procedure Procedure Detail [...] above: Performed By: #### X M ####[facility] ([facility])[address] [place] [address] Start: 01-22-2024 Assay of magnesium Just in [...] 01-20-2024 ITRACONAZOLE LEVEL Jennifer norbert K Dorian [facility] Work Phone: Start: 01-20-2024 Oscillating positive expiratory [...] quantifica tion each organism Fidelina K Dorian [facility] Work Phone: Start: 01-18-2024 Echocardiography STEVE N [...] AURIS SCREEN BY PCR Carol Ann Capps COTTON MACHINE OPERATOR-CHEMICAL COMPOUNDER HELPER Work Phone: Start: 01-08-2024 ALL CBC [...] Radiologic exam ches t single view Aric Truner MD Work Phone: Start: 08-28-2023 DARYL AURIS SCREEN BY PCR Carol Ann Capps COTTON MACHINE OPERATOR-CHEMICAL COMPOUNDER HELPER Work Phone: Start: 08-28-2023 CBC AND [...] #### C MP #### [facility] [address] [place] [address] Dr. Dwight Waters Start: 07-07-2022 Rmvl nfros [...] Work Phone: Start: 05-20-2022 Urography antegrade rs&i Eavn Byrd MD Work Phone: Start: 05-20-2022 Assay [...] recipient S/P liver trans plant Comfort Miguel [facility] Work Phone: Start: 04-08-2020 H/O: liver recipient Liver tra nsplant recipient Comfort Rivera [facility] Work Phone: Start: 01-06-2020 Potassium serum plasma/whole [...] transplant recipient Comfort Rivera [facility] Work Phone: Start: 06-10-2019 HEMOGLOBIN AND HEMAT OCRIT, BLOOD ROB KASMANI Start: 06-01-2019 Blood count hemoglobin ROB KASMANI Start: 03-22-2019 Lipid 1996 panel - S fabricio or Plasma Comfort Rivera [facility] Work Phone: Start: 01-14-2019 Potassium serum plasma/whole [...] 10-12-2018 End: 10-12-2018 Antibody rubeola Yovani Mejias [employer] Work Phone: Start: 10-12-2018 End: 10-12-2018 Antibody varicella-zoster Yovani Orr Work Phone: Start: 10-12-2018 End: 10-12-2018 Assay of ethanol Yovani Orr Work Phone: Start: 10-12-2018 End: 10-12-2018 Assay of ferritin Yovani Orr Work Phone: Start: 10-12-2018 End: 10-12-2018 Assay of iron Yovani Mejias [employer] Work Phone: Start: 10-12-2018 End: 10-12-2018 Assay [...] 10-12-2018 Drug screening cannabinoids natural Yovani Mejias [employer] Work Phone: Start: 10-12-2018 End: 10-12-2018 Hepatitis [...] 10-12-2018 End: 10-12-2018 PSA screening Yovani Mejias [employer] Work Phone: Start: 10-12-2018 End: 10-12-2018 Thromboplastin [...] Kidn ey replaced by transplant Rebeca Gutierrez COTTON MACHINE OPERATOR-CLIENT DEVELOPMENT DIRECTOR Work Phone: Plan of Treatment Date Care Activity Detail Author Start: 09-20-2029 Screening for malignant neoplasm of colon [facility] Start: 07-04-2025 Potassium [Moles/volume] in Serum or Plasma [facility] Start: 06-20-2025 Potassium [Moles/volume] in Serum or Plasma [facility] Start: 06-16-2025 End: 06-16-2025 Patient encounter procedure [facility] Start: 06-13-2025 Potassium [Moles/volume] in Serum or Plasma [facility] Start: 05-23-2025 Potassium [Moles/volume] in Serum or Plasma [facility] Start: 03-28-2025 Potassium [Moles/volume] in Serum or Plasma [facility] Start: 03-21-2025 Potassium [Moles/volume] in Serum or Plasma [facility] Start: 02-28-2025 Potassium [Moles/volume] in Serum or Plasma [facility] Start: 01-23-2025 Potassium [Moles/volume] in Serum or Plasma [facility] Start: 09-07-2024 End: 09-07-2024 Telemedicine consultation with patient 09/07/2024 3:00 PM EDT Telemedicine Infectious Diseases Care [facility] [address] [place] [id number] Evan White DO [address] [place], [place] [id number] Infectious Diseases Care [facility] Start: 08-31-2024 Screening for malignant neoplasm of lung [facility] Start: 07-31-2024 Influenza vaccination INFLUENZA VACCINE (#1) [facility] Start: 06-17-2024 End: 06-17-2024 ambulatory [facility] Start: 06-17-2024 End: 06-17-2024 Patient encounter procedure [facility] Start: 03-22-2024 Fasting lipid profile LIPID SCREENING [facility] Start: 03-22-2024 Lipid panel [facility] Start: 02-26-2024 End: 02-26-2024 Patient encounter procedure 02/26/2024 9:30 AM EDT Office Visit [facility] [address] [place] [address] Candie Almaguer MD [address] [place] [address] [facility] Start: 02-11-2024 End: 02-11-2024 Patient encounter procedure 02/11/2024 10:30 AM EDT Office Visit [facility] [address] [place] [address] Zuly Bruno NP [address] [place] [address] [facility] Start: 02-09-2024 End: 02-09-2024 Telemedicine consultation with patient 02/09/2024 3:30 PM EDT Telemedicine Infectious Diseases Care [facility] [address] [place] [phone] Hakeem Alamo MD [address] [address] Infectious Diseases Care [facility] Start: 01-15-2024 End: 01-15-2024 ambulatory [facility] Start: 01-15-2024 End: 01-15-2024 Patient encounter procedure [facility] Start: 01-06-2024 End: 01-06-2026 Echocardiogram [...] Visit [facility] [address] [place] [address] Zuly Bruno NP [address] [place] [address] [facility] Start: 12-08-2023 End: 09-07-2024 CT Chest WO contrast [facility] Work Phone: Start: 12-01-2023 COVID-19 VACCINE (2 - Moderna risk series) COVID-19 VACCINE (2 - Moderna risk series) [facility] Start: 09-23-2023 End: 09-23-2023 ambulatory Infectious Diseases Care [facility] Start: 09-23-2023 End: 09-23-2023 Telemedicine consultation with patient 09/23/2023 4:00 PM EDT Telemedicine Infectious Diseases Care [facility] [address] [place] [address] Hakeem Alamo MD [address] [place] [address] Infectious Diseases Care [facility] Start: 09-15-2023 End: 09-10-2024 ITRACONAZOLE LEVEL [facility] Start: 08-25-2023 End: 08-25-2024 ALLOSCREEN RECIPIENT (POST TX PRA) ALLOSCREEN RECIPIENT (POST TX PRA) Lab Routine Kidney replaced by transplant Aftercare following organ transplant Immunosuppressed status High risk medication use Other general symptoms and signs Abnormal blood chemistry Expected: 08/25/2023, Expires: 08/25/2024 [facility] Comment on above: Expected: 08/25/2023, Expires: Start: 07-31-2023 Influenza vaccination [facility] Start: 06-12-2023 End: 06-12-2023 Patient encounter procedure 06/12/2023 Office Visit Transplant Surgery Steve Latham MBBS [address] [place] [id number] [facility] Start: 03-11-2023 End: 03-11-2023 Telemedicine consultation with patient 03/11/2023 Telemedicine Urology Ryan Yepez MD [address] [facility] [address] [place] [address] [facility] Start: 01-16-2023 End: 01-16-2023 Patient encounter procedure 01/16/2023 Office Visit Transplant Surgery [facility] Start: 10-31-2022 End: 10-31-2022 Patient encounter procedure 10/31/2022 Office Visit Transplant Surgery Steve Latham, LU [address] [place] [address] [facility] Start: 09-10-2022 End: 09-10-2023 PSA screening PSA, SCREENING Lab Routine BPH with obstruction/lower urinary tract symptoms Encounter for screening for malignant neoplasm of prostate Expected: 09/10/2022 (Approximate), Expires: 09/10/2023 [facility] Comment on above: Expected: 09/10/2022 (Approximate), Expi res: 09/10/2023 Start: 08-11-2022 End: 08-11-2022 Patient encounter procedure 08/11/2022 Office Visit Urology Ryan Yepez MD [address] [facility] [address] [place] [address] [facility] [place] Start: 07-31-2022 Influenza vaccination [facility] Start: 07-07-2022 End: 07-07-2022 Patient encounter procedure 07/07/2022 Office Visit Ryan Webster MD [address] [facility] [address] [place] [address] [facility] Start: 07-07-2022 End: 07-07-2023 FLUORO IMAGING FOR UROLOGY [facility] Comment on above: Expected: 07/07/2022, Expires: 3 1 Occurrences starti ng 07/07/2022 until 07/07/2022 Start: 06-27-2022 End: 06-27-2022 Patient encounter procedure 06/27/2022 Office Visit Urology Ryan Yepez MD [address] [facility] [address] [place] [address] [facility] Start: 06-27-2022 End: 06-27-2023 Basic metabolic 2000 panel - Serum or Plasma BASIC METABOLIC PANEL Lab Routine Other hydronephrosis Expected: 06/27/2022, Expires: 06/27/2023 [facility] Comment on above: Expected: 06/27/2022, Expires: Start: 06-27-2022 End: 06-27-2022 Patient encounter procedure 06/27/2022 Appointment Computerized Tomography Scan Ryan Yepez MD [address] [facility] [address] [id number] Department of Radiology Start: 06-15-2022 End: 05-16-2023 CT Abdomen and Pelvis WO contrast CT ABDOMEN/PELVIS WITHOUT CONTRAST Imaging Routine FAYE (acute kidney injury) Expected: 06/15/2022 (Approximate), Expires: 05/16/2023 [facility] Work Phone: Comment on above: Expected: 06/15/2022 (Approximate), Expi res: 05/16/2023 Start: 06-12-2022 End: 06-12-2022 Patient encounter procedure 06/12/2022 Office Visit Transplant Surgery Steve Latham, LU [address] [place] [id number] [facility] Start: 06-11-2022 End: 06-11-2023 BK VIRUS DNA QN, PCR, PLASMA BK VIRUS DNA QN, PCR, PLASMA Lab Routine Kidney replaced by transplant Liver replaced by transplant Abnormal blood chemistry Expected: 06/11/2022, Expires: 06/11/2023 [facility] Comment on above: Expected: 06/11/2022, Expires: Start: 06-04-2022 End: 06-04-2022 Patient encounter procedure 06/04/2022 Office Visit Interventional Radiology [facility] Start: 10-18-2021 End: 10-18-2021 Patient encounter procedure 10/18/2021 Office Visit Transplant Surgery Steve Latham, LU [address] [place] [address] [facility] Start: 07-31-2021 Influenza vaccination INFLUENZA VACCINE (#1) [facility] Start: 07-26-2021 End: 07-26-2021 Patient encounter procedure 07/26/2021 Office Visit Transplant Surgery [facility] Start: 2021 Prostate specific antigen measurement [facility] Start: 2021 Screening for malignant neoplasm of lung LUNG CANCER SCREENING [facility] Start: 2021 Zoster vaccine hzv live for subcutaneous use ZOSTER (SHINGLES) VACCINE (1 of 2) [facility] Start: 09-20-2020 Colonoscopy COLORECTAL CANCER SCREENING DISCUSSION [facility] Start: 09-20-2020 Screening for malignant neoplasm of colon [facility] Start: 07-31-2019 Influenza vaccination Flu vaccine (#1) [place] Start: 05-22-2019 Annual Wellness Visit (AWV) Annual Wellness Visit (AWV) [place] Start: 04-18-2019 End: 10-19-2019 Ultrasonography of abdomen US ABDOMEN RUQ/LIVER/GB Routine Cirrhosis of liver without ascites, unspecified hepatic cirrhosis type Expected: 04/18/2019 (Approximate), Expires: 10/19/2019 [facility] Work Phone: Comment on above: Expected: 04/18/2019 (Approximate), Expi res: 10/19/2019 Start: 01-25-2019 End: 01-25-2019 Ambulatory 01/25/2019 Office Visit Gastroenterology Christin Elizabeth, COTTON MACHINE OPERATOR-CLIENT DEVELOPMENT DIRECTOR [address] [place] [address] Division of Gastroenterology and Hepatology Gavin Start: 11-19-2018 End: 11-19-2018 Ambulatory 11/19/2018 Appointment Pulmonary Diagnostics [facility] Start: 11-19-2018 End: 11-19-2018 Ambulatory [facility] Start: 10-19-2018 End: 10-19-2018 Ambulatory Ultrasound Jakob Start: 10-12-2018 End: 10-12-2019 Hemoglobin A1c/Hemoglobin.total mass fraction (Bld) HEMOGLOBIN A1C Routine Alcoholic cirrhosis, unspecified whether ascites present Pre-transplant evaluation for liver transplant Expected: 10/12/2018, Expires: 10/12/2019 [facility] Work Phone: Comment on above: Expected: 10/12/2018, Expires: 9 Start: 10-12-2018 End: 10-12-2019 TYPE AND SCREEN - NOT FOR TRANSFUSION TYPE AND SCREEN - NOT FOR TRANSFUSION Routine Alcoholic cirrhosis, unspecified whether ascites present Pre-transplant evaluation for liver transplant Expected: 10/12/2018, Expires: 10/12/2019 [facility] Work Phone: Comment on above: Expected: 10/12/2018, Expires: 9 Start: 07-31-2018 Influenza vaccination INFLUENZA VACCINE (#1) [facility] Work Phone: Start: 2011 Fasting lipid profile LIPID SCREENING [facility] Work Phone: Start: 2011 Lipid screen Lipid screen [place] Start: 1990 DTaP/Tdap/Td vaccine (1 - Tdap) DTaP/Tdap/Td vaccine (1 - Tdap) [place] Start: 1990 Hepatitis B vaccination HEP B VACCINE (1 of 3 - 19+ 3-dose series) [facility] Start: 1990 Hepatitis B Vaccine (1 of 3 - Risk Recombivax 3-dose series) Hepatitis B Vaccine (1 of 3 - Risk Recombivax 3-dose series) [place] Start: 1990 Third diphtheria, tetanus and acellular pertussis (DTaP) vaccination [facility] Start: 1990 Zoster vaccine hzv live for subcutaneous use ZOSTER (SHINGLES) VACCINE (1 of 2) [facility] Start: 1990 [facility] Start: 1989 Tetanus vaccination TETANUS [facility] Start: 1986 HIV screen HIV screen [place] Start: 02-17-1984 HIV screening HIV SCREENING DISCUSSION [facility] Work Phone: Start: 1983 COVID-19 VACCINE (1) COVID-19 VACCINE (1) [facility] Start: 1982 DTaP/Tdap/Td vaccine (1 - Tdap) DTaP/Tdap/Td vaccine (1 - Tdap) [place] Start: 1977 Pneumococcal 0-64 years Vaccine (1 of 3 - PCV13) Pneumococcal 0-64 years Vaccine (1 of 3 - PCV13) [place] Start: 1977 PNEUMOCOCCAL VACCINE SERIES (1 - PCV) PNEUMOCOCCAL VACCINE SERIES (1 - PCV) [facility] Start: 1977 PNEUMOCOCCAL VACCINE SERIES (1 of 2 - PCV) PNEUMOCOCCAL VACCINE SERIES (1 of 2 - PCV) [facility] Start: 1977 [facility] Start: 02-17-1976 COVID-19 VACCINE (#1) COVID-19 VACCINE (#1) [facility] Start: 02-17-1976 [facility] Start: 1971 COVID-19 VACCINE (#1) COVID-19 VACCINE (#1) [facility] Start: 1971 Hepatitis B vaccination HEP B VACCINE (1 of 3 - 3-dose series) [facility] Start: 1971 Medicare Annual Wellness (AWV) Medicare Annual Wellness (AWV) [facility] Start: 1971 Screening for malignant neoplasm of colon [facility] Start: 1971 Tetanus vaccination [facility] BK VIRUS DNA QN, PCR , PLASMA BK VIRUS DNA QN, PCR, PLASMA Lab Routine Kidney replaced by transplant Liver replaced by transplant Abnormal blood chemistry 06/12/2022 3:38 PM EDT [facility] CALCULI, URINARY (KIDNEY STONE) CALCULI, URINARY (KIDNEY STONE) Fluids Routine 05/19/2022 8:16 AM EDT [facility] Work Phone: CANNABINOIDS, QUANT (URINE)THC CONFIRMATION CANNABINOIDS, QUANT (URINE)THC CONFIRMATION Routine Alcoholic cirrhosis, unspecified whether ascites present ESRD (end stage renal disease) on dialysis Pre-transplant evaluation for liver transplant 10/12/2018 12:[address] [facility] Work Phone: End: 09-10-2024 CHEM 6 (LYTES, BUN CREA) [facility] EBV VCA IGG AB EBV VCA IGG AB R outine Alcoholic cirrhosis, unspecified whether ascites present ESRD (end stage renal disease) on dialysis Pre-transplant evaluation for liver transplant 10/12/2018 12:[address] [facility] Work Phone: Fungus identified in Unspecified specimen by Culture [facility] HLA TYPING (SOLID ORGAN) HLA TYPING (SOLID ORGAN) Routine Alcoholic cirrhosis, unspecified whether ascites present ESRD (end stage renal disease) on dialysis Pre-transplant evaluation for liver transplant 10/12/2018 12:[address] [facility] Work Phone: HSV 1 AND 2 IGG ANTIBODY HSV 1 AND 2 IGG ANTIBODY Routine Alcoholic cirrhosis, unspecified whether ascites present ESRD (end stage renal disease) on dialysis Pre-transplant evaluation for liver transplant 10/12/2018 12:[address] [facility] Work Phone: MR Abdomen WO and W contrast IV MRI ABDOMEN WITH AND WITHOUT CONTRAST Imaging Routine Liver lesion Ordered: 06/17/2024 [facility] Comment on above: Ordered: 06/17/2024 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 specific culture [facility] PLACEMENT NEPHROSTOM Y CATHETER PERCUTANEOUS W/ IMAGE GUIDANCE PLACEMENT NEPHROSTOMY CATHETER PERCUTANEOUS W/ IMAGE GUIDANCE Imaging Routine Hydronephrosis due to obstruction of ureteral orifice FAYE (acute kidney injury) 05/17/2022 11:08 AM EDT [facility] NC POST VOID RESIDUAL NC POST VO ID RESIDUAL NC - OFFICE PERFORMED Routine BPH with obstruction/lower urinary tract symptoms Ordered: 09/10/2022 [facility] Comment on above: Ordered: 09/10/2022 PTH INTACT PTH INTACT Routi ne Alcoholic cirrhosis, unspecified whether ascites present ESRD (end stage renal disease) on dialysis Pre-transplant evaluation for liver transplant 10/12/2018 12:[address] [facility] Work Phone: RUBEOLA IGG AB (IMMU NE STATUS) RUBEOLA IGG AB (IMMUNE STATUS) Routine Alcoholic cirrhosis, unspecified whether ascites present ESRD (end stage renal disease) on dialysis Pre-transplant evaluation for liver transplant 10/12/2018 12:[address] [facility] Work Phone: End: 01-16-2024 Standard ECG ECG ECG Routine One Time for 1 Occurrences starting 01/16/2024 until 01/16/2024 [facility] Comment on above: One Time for 1 Occurrences starting 12/31 until 01/16/2024 End: 09-10-2024 TACROLIMUS LEVEL, TROUGH (PRE DRUG LEVEL) [facility] VARICELLA IGG AB (IM M STATUS) VARICELLA IGG AB (IMM STATUS) Routine Alcoholic cirrhosis, unspecified whether ascites present ESRD (end stage renal disease) on dialysis Pre-transplant evaluation for liver transplant 10/12/2018 12:[address] [facility] Work Phone: Immunizations Immunization Date Immunization Notes Care Provider Zeeshan marquez 11-03-2023 influenza virus vacc ine, unspecified formulation Generic Provider [facility] 11-03-2023 Moderna SARS-CoV-2 50mcg/0.5mL Booster Generic Provider [facility] Payers Date Payer Category Payer Unknown [id number] 2019 Unknown [facility] [employer] [id number] 2019-Present [id number] 2018 Medicaid MEDICAID [facility] DEPT OF JOB xxxxxxxxxxxx 2018-Present [phone] [address] [place] [address] xxxxxxxxxxxx [id number] [id number] 2018 Medicaid MEDICAID MEDICAI D [id number] 2018-Present [address] [place] [address] [id number] .[id number] 2018 Medicaid [id number] [id number] .[id number] 2018 Medicare MEDICARE MEDICAR E PART A AND B xxxxxxxxxxx 2018-Present [phone] [address] [address] [place] [address] xxxxxxxxxxx [id number] .[id number] 2018 Medicare [id number] 2018 Medicare MEDICARE MEDICAR E A AND B [id number] 2018-Present [address] [place] [address] [id number] [id number] .901081.315 2018 Medicare [id number]. 1.13.172.2.7.3 .731825.315 1971 Unknown [id number] 2.16.840.1.380862.3.579.2.173 1971 Unknown [id number] 2.16.840.1.026118.3.579.2.173 1971 Unknown [id number] 2.16.840.1.746355.3.579.2.173 1971 Unknown [id number] 2.16.840.1.129166.3.579.2.173 1971 Unknown [id number] 2.16.840.1.509271.3.579.2.173 1971 Unknown [id number] 2.16.840.1.635397.3.579.2.173 1971 Unknown [id number] 2.16.840.1.854187.3.579.2.173 1971 Unknown [id number] 2.16.840.1.870947.3.579.2.173 1971 Unknown [id number] 2.16.840.1.686797.3.579.2.647 1971 Unknown [id number] 2.16.840.1.602729.3.579.2.593 1971 Unknown [id number] 2.16.840.1.305930.3.579.2.593 1971 Unknown [id number] 2.16.840.1.806000.3.579.2.593 1971 Unknown [id number] 2.16.840.1.608382.3.579.2.593 1971 Unknown [id number] 2.16.840.1.923917.3.579.2.593 1971 Unknown [id number] 2.16.840.1.865420.3.579.2.593 1971 Unknown [id number] 2.16.840.1.289554.3.579.2.593 1971 Unknown [id number] 2.16.840.1.187346.3.579.2.593 1971 Unknown [id number] 2.16.840.1.772539.3.579.2.593 1971 Unknown [id number] 2.16.840.1.259249.3.579.2.593 1971 Unknown [id number] 2.16.840.1.724963.3.579.2.593 1971 Unknown [id number] 2.16.840.1.952301.3.579.2.593 1971 Unknown [id number] 2.16.840.1.605167.3.579.2.593 1971 Unknown [id number] 2.16.840.1.120931.3.579.2.593 1971 Unknown [id number] 2.16.840.1.033818.3.579.2.593 1971 Unknown [id number] 2.16.840.1.642647.3.579.2.125 9 1971 Unknown [id number] 2.16.840.1.365914.3.579.2.125 9 1971 Unknown [id number] 2.16.840.1.062453.3.579.2.125 9 1971 Unknown [id number] 2.16.840.1.237353.3.579.2.125 9 1971 Unknown [id number] 2.16.840.1.778855.3.579.2.125 9 1971 Unknown [id number] 2.16.840.1.486344.3.579.2.125 9 1971 Unknown [id number] 2.16.840.1.964735.3.579.2.125 9 1971 Unknown [id number] 2.16.840.1.125301.3.579.2.125 9 1971 Unknown [id number] 2.16.840.1.100683.3.579.2.125 9 1971 Unknown [id number] 2.16.840.1.944565.3.579.2.125 9 1971 Unknown [id number] 2.16.840.1.492730.3.579.2.125 9 1971 Unknown [id number] 2.16.840.1.491285.3.579.2.125 9 1971 Unknown [id number] 2.16.840.1.223070.3.579.2.125 9 1971 Unknown [id number] 2.16.840.1.534639.3.579.2.125 9 1971 Unknown [id number] 2.16.840.1.317909.3.579.2.594 1971 Unknown [id number] 2.840.1.447408.3.579.2.594 1971 Unknown [id number] 2.16840.1.313857.3.579.2.594 1971 Unknown [id number] 2.840.1.959014.3.579.2.594 1971 Unknown [id number] 2.16840.1.651373.3.579.2.594 1971 Unknown [id number] 2.840.1.578246.3.579.2.594 1971 Unknown [id number] 2.16840.1.520569.3.579.2.594 1971 Unknown [id number] 2.16840.1.690622.3.579.2.594 1971 Unknown [id number] 2.16840.1.071358.3.579.2.594 1971 Unknown [id number] 2.840.1.035780.3.579.2.594 1971 Unknown [id number] 2.16840.1.825046.3.579.2.594 1971 Unknown [id number] 2.16.840.1.975981.3.579.2.594 1959 Medicaid [id number] 1959 Medicare [id number] Social History Date Type Detail Facility Start: 07-19-2018 End: 10-19-2018 Tobacco smoking status NHIS Former smoker [facility] Start: 07-19-1988 End: 05-14-2018 History of tobacco use Current smoker [facility] Work Phone: Start: 07-19-1988 End: 05-14-2018 History of tobacco use Cigarette Smoker [facility] Work Phone: Start: 10-19-2018 End: 06-17-2024 Cigarettes smoked current (pack per day) - Reported [facility] End: 07-19-1994 History of tobacco use Chews Tobacco [facility] Work Phone: Start: 1971 Sex Assigned At Not on file [facility] Work Phone: Start: 11-03-2018 Alcohol intake Current non-drinker of alcohol (finding) [place] Start: 06-22-2018 Alcohol Comment Hx of alcoholism [place] Start: 11-03-2018 End: 06-17-2024 Alcohol intake No [facility] Start: 07-19-2018 Tobacco use and exposure Former user [facility] Start: 09-06-2020 End: 06-17-2024 Alcohol intake Ex-drinker (finding) [facility] Start: 07-19-2018 Alcohol Comment stopped 05/14/2018 [facility] Start: 05-05-2022 End: 01-16-2023 Exposure to SARS-CoV-2 (event) Not sure [facility] Start: 07-07-2018 Gender identity Identifies as male gender (finding) [facility] Start: 01-16-2022 Sexual orientation Heterosexual (finding) [facility] Start: 11-03-2023 Tobacco use and exposure [...] Dates [id number] Start: 05-23-2020 [id number] Start: 04-12-2020 [id number] [facility] Start: 05-17-2022 Comment on above: Description: Implant time-out completed by intra-procedural staff including this RN, technical maintenance technician, and performing physician. The following [...] Required: No Receive/Pickup Date: 06/29/2024 Shipping Address: [address] [place] [address] [address] Contact Info: Specialty ([place]) [phone] Jakob [phone] [facility] [phone] Raheem [phone] Bedside Delivery ([facility]) [phone] documented in this encounter [facility] 06-17-2024 History of Present illness Narrative -Referring Provider for today's consult: Self, Self -Primary Care Provider: Zuly Bruno History of Present Illness George Styles is a 54 y.o. male who presents [facility] the [facility] Transplant Hepatology Clinic today for follow-up [...] Left; Surgeon: Jyoti Bryant MD, PhD; Location: [facility] MAIN OR PLACEMENT NEPHROSTOMY CATHETER PERCUTANEOUS W/ IMAGE GUIDANCE 05/17/2022 Surgeon: Enzo Heart DO; Location: [facility] INTERVENTIONAL RADIOLOGY (VIR) LIVER TRANSPLANT, ORTHOTOPIC N/A 04/12/2020 Laterality: N/A; Surgeon: LU Palma; Location: [facility] SAME DAY SURGERY MAIN OR KIDNEY TRANSPLANT W/O [place] DEE-NI' NEPHRECTOMY N/A 04/12/2020 Laterality: N/A; Surgeon: LU [...] 0.2 06/13/2024 Explant Pathology Pathologic Diagnosis A. [place] liver, orthotopic liver transplant resection (1458 gram): [...] up in 1 year. Daisha Max DO Food Bagging Machine Operator Gastroenterology, Hepatology and Nutrition [facility] Pager: [phone] Images from the original note were not included. 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 Merchandising Execution Associate: Anayeli Burt Date of Liver Transplant: 04/13/2020 (Kidney), 04/13/2020 (Liver) 4 years, 2 months post Liver/Kidney Transplant Primary Disease: Hypertensive Nephrosclerosis Transplant Automotive Parts Clerk: Erma Roe/ Daisha Max Primary Care [...] LAB AND PHARMACY: None Specified [id number] [place] [address] - [address] [facility] [address] [facility] [address] [facility] [address] [facility], [address] [address] [id number] [place] [address] [address] [facility] [address] [id number] [facility] Jakob [address], [address] [address] [place] and SCREEN: Chest Pain: negative Cough: [...] year: no Do you follow with a Guest History Clerk? yes Do you have a Primary Care [...] ADDRESS WITH PHYSICIAN: documented in this encounter [facility] 06-17-2024 Instructions Ashlee Fair RN - 06/17/2024 10:00 AM EDT - No medication changes from a liver standpoint - A MRI Abdomen has been ordered today. Please call central scheduling at [phone] to schedule or take paper copy to your local hospital - Return to clinic 06/16/2025 TRANSPLANT HEPATOLOGY 3, [facility] as scheduled documented in this encounter [facility] 06-17-2024 History of Present illness Narrative Images from the original note were not included. George Styles is a 54 y.o. 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 No longer follows with a local ultrasonic welding machine operator. History of Present Illness: Since [...] and lab results. Rebeca Gutierrez MSN, RN, COTTON MACHINE OPERATOR-BC, CCTN Certified Nurse Practitioner [facility] [address] [facility] [address] documented in this encounter [facility] 06-17-2024 Instructions JEANNA Hess - 06/17/2024 9:30 AM EDT Tacrolimus - increase to 0.2 mg packet three time per day; goal 3 to 5 ng/dL ; when the itraconazole stops 09/03/2024, reduce to 0.5 mg twice daily. Once your tacrolimus level is 3-5 ng/dL, you may reduce labs to every other week. documented in this encounter [facility] 05-26-2024 History of Present illness Narrative [facility]: Call Information: Date and Time of Contact: 05/26/2024 4:35 PM Method of Contact: By Phone Contact Type: Prescriptions Contactor: [facility] Contactee: Patient Contact Outcome: Left message and Follow-up Contact Info: Specialty ([place]) [phone] Jakob [phone] [facility] [phone] Raheem [phone] Bedside Delivery ([facility]) [phone] [facility]RE[facility]: Call Information: Date and Time of Contact: 05/30/2024 4:52 PM Method of Contact: By Phone Contact Type: Prescriptions Contactor: Patient Contactee: [facility] Shipping/Pickup: Medicare B Refill?: No Medication Name: Myco sod 360mg, Prograf 0.2mg Delivery Method: Ship Delivery Location: Home Signature Required: No Receive/Pickup Date: 06/06/2024 Shipping Address: [address] [place] [address] Contact Info: Specialty ([place]) [phone] [facility] [phone] [facility] [phone] Raheem [phone] Bedside Delivery ([facility]) [phone] documented in this encounter [facility] 05-13-2024 Note NE Cardiology - [facility] Subjective George Styles is a 54 [...] t (more content not included)... [facility] 03-24-2024 History of Present illness Narrative [facility]RE[facility]: Call Information: Date and Time of Contact: 03/24/2024 4:14 PM Method of Contact: By Phone Contact Type: Prescriptions Contactor: [facility] Contactee: Patient Contact Outcome: Left message Shipping/Pickup: Medication Name: Prograf 0.2mg pack Contact Info: Specialty ([place]) [phone] [facility] [phone] [facility] [phone] Raheem [phone] Bedside Delivery ([facility]) [phone] [facility]REACH [facility]VANCED: Call Information: Date and Time of Contact: 03/28/2024 3:58 PM Method of Contact: By Phone Contact Type: Prescriptions Contactor: [facility] Contactee: Patient Contact Outcome: Left message and Call back later Shipping/Pickup: Medication Name: Mycophenolate, prograf Contact Info: Specialty ([place]) [phone] [facility] [phone] [facility] [phone] Raheem [phone] Bedside Delivery ([facility]) [phone] [facility]REACH [facility]VANCED: Call Information: Method of Contact: By Phone Contact Type: Prescriptions Contactor: Patient Contactee: [facility] Shipping/Pickup: Medicare B Refill?: No Medication Name: Mycopheolate 360mg and Prograf Delivery Method: Ship Delivery Location: Home Signature Required: No Receive/Pickup Date: 04/04/2024 Shipping Address: [address] [place] [address] [address] Contact Info: Specialty ([place]) [phone] [facility] [phone] [facility] [phone] Raheem [phone] Bedside Delivery ([facility]) [phone] documented in this encounter [facility] 03-24-2024 History of Present illness Narrative [facility]: Call Information: Date and Time of Contact: 03/24/2024 4:14 PM Method of Contact: By Phone Contact Type: Prescriptions Contactor: [facility] Contactee: Patient Contact Outcome: Left message Shipping/Pickup: Medication Name: Prograf 0.2mg pack Contact Info: Specialty ([place]) [phone] [facility] [phone] [facility] [phone] Raheem [phone] Bedside Delivery ([facility]) [phone] [facility]REACH [facility]VANCED: Call Information: Date and Time of Contact: 03/28/2024 3:58 PM Method of Contact: By Phone Contact Type: Prescriptions Contactor: [facility] Contactee: Patient Contact Outcome: Left message and Call back later Shipping/Pickup: Medication Name: Mycophenolate, prograf Contact Info: Specialty ([place]) [phone] [facility] [phone] [facility] [phone] Raheem [phone] Bedside Delivery ([facility]) [phone] [facility]REACH [facility]VANCED: Call Information: Method of Contact: By Phone Contact Type: Prescriptions Contactor: Patient Contactee: [facility] Shipping/Pickup: Medicare B Refill?: No Medication Name: Mycopheolate 360mg and Prograf Delivery Method: Ship Delivery Location: Home Signature Required: No Receive/Pickup Date: 04/04/2024 Shipping Address: [address] [place] [address] [address] Contact Info: Specialty ([place]) [phone] [facility] [phone] [facility] [phone] Raheem [phone] Bedside Delivery ([facility]) [phone] [facility] OUTREACH ADVANCED: Pre-Verification/Specialty Assessment/Disease [...] Within normal limits Contact Info: Specialty ([place]) [phone] Jakob [phone] [facility] [phone] Raheem [phone] Bedside Delivery ([facility]) [phone] documented in this encounter [facility] 03-02-2024 History of Present illness Narrative [...] del of broth Contact Info: Specialty ([place]) [phone] [facility] [phone] [facility] [phone] Raheem [phone] Bedside Delivery ([facility]) [phone] [facility] OP RX OUTREACH ADVANCED: Call Information: Date and Time of Contact: 03/02/2024 3:49 PM Method of Contact: By Phone Contact Type: Prescriptions Contactor: [facility] OP Contactee: Patient Contact Outcome: Left message and Follow-up Shipping/Pickup: Medication Name: Myco 360mg and Prograf 0.2mg Contact Info: Specialty ([place]) [phone] [facility] [phone] [facility] [phone] Raheem [phone] Bedside Delivery ([facility]) [phone] [facility] OP RX OUTREACH ADVANCED: Call Information: Date and Time of Contact: 03/02/2024 4:08 PM Method of Contact: By Phone Contact Type: Prescriptions Contactor: [facility] OP Contactee: Patient Shipping/Pickup: Medicare B Refill?: No Medication Name: Myco 360 / prograf 0.2 Delivery Method: Ship Delivery Location: Home Signature Required: No Receive/Pickup Date: 03/03/2024 Shipping Address: [address] [place] [address] 179 Contact Info: Specialty ([place]) [phone] [facility] [phone] [facility] [phone] Raheem [phone] Bedside Delivery ([facility]) [phone] documented in this encounter [facility] 02-26-2024 History of Present illness [...] to the HF Clinic at the [facility] on 02/26/2024 for initial evaluation of heart [...] Left; Surgeon: Jyoti Bryant MD, PhD; Location: [facility] MAIN OR PLACEMENT NEPHROSTOMY CATHETER PERCUTANEOUS W/ IMAGE GUIDANCE 05/17/2022 Surgeon: Enzo Heart DO; Location: [facility] INTERVENTIONAL RADIOLOGY (VIR) LIVER TRANSPLANT, ORTHOTOPIC N/A 04/12/2020 Laterality: N/A; Surgeon: LU Palma; Location: [facility] SAME DAY SURGERY MAIN OR KIDNEY TRANSPLANT W/O [place] DEE-NI' NEPHRECTOMY N/A 04/12/2020 Laterality: N/A; Surgeon: LU [...] qd Antithrombotic: no Statin: no ICD: NA OPERATIONS AND MAINTENANCE SUPERVISOR: NA CV Test results: ECHOCARDIOGRAM 01/18/2024 (Final) [...] will be BP control. Candie Almaguer M.D. metal engraver Advanced Heart Failure Program Division of Cardiovascular Medicine [facility] [email or web address] [phone] fax [phone] documented in this encounter [facility] 02-26-2024 Instructions Marsha Mckeon RN - 02/26/2024 9:30 AM EDT The following instructions were given today: Labs today Follow up with Dr. Almaguer as needed. Your after visit summary (AVS) is viewable in [facility] My Chart. Call RN if you have cardiac questions/concerns M-F 8 to 4:30 ; office # [phone], option 6, then option 2. Guidelines for home management: 1. Continue to monitor weight first thing each morning. 2. Report to the CHF CLINIC ([phone]) any significant weight change. Remember that weight [...] labs/tests run outside of the [facility] and you do not hear from us 1-2 days after they are performed, you must call us to ensure we received the results. Office fax # [phone]. No news does not necessarily mean that your tests are normal, it could mean we did not get the results. For questions/updates: please provide your name with spelling, date of and question or update All calls are prioritized and responses researched, if possible, prior to calls being returned. Call Scheduling for any appointment/procedure verification or changes [phone], option 7 or [facility] Heart Schedulers at [phone], option 1. documented in this encounter [facility] 01-23-2024 Nurse Note Jakob wrap [...] understanding on picking up needed prescriptions at [facility] as listed on discharge summary. Patient denies any unanswered questions at this time. Patient has been discharged with all of their belongings, transported via wheelchair on oxygen to front entrance for brother to transport home on home oxygen supply. [facility] 01-23-2024 Miscellaneous Notes Jakob wrap [...] understanding on picking up needed prescriptions at [facility] pharmacy as listed on discharge summary. Patient [...] Pain): verbalization of pain descriptors George Styles ([id number]) PRE OPERATIVE DIAGNOSIS High output congestive heart failure [I50.83] POST OPERATIVE DIAGNOSIS Post-Op Diagnosis Codes: * High output congestive heart failure [I50.83] PROCEDURE PERFORMED Procedure(s) (LRB): LIGATION ANGIOACCESS AVF (Left) Resection of large aneurysmic vein PRIMARY CLOSURE Yes INTRAOPERATIVE FINDINGS No significant abnormalities SURGEON Surgeons and Role: * Jyoti Bryant MD, PhD - Primary ANESTHESIOLOGIST Anesthesiologist: Celena Tiwari MD; Kehinde Gutierrez MD PATTERN MAKER PROGRAMER: Raheem Jasso APRN-PATTERN MAKER PROGRAMER Meat Wrapper Assisting: Mini Khan MD SURGICAL STAFF Branch Operations Coordinator: Zoila Lawrence RN Relief Branch Operations Coordinator: Marimar Saravia RN Relief Scrub: Briseyda Self [...] patient breathing easily. Report received from surgical first assistant and report received from anesthesiology. Pt [...] Axillary block. SURGEON(S): Jyoti Bryant MD, PHD ENCODING MACHINE OPERATOR: Mynor Fall MD ESTIMATED BLOOD LOSS: Minimal. [...] Jyoti Bryant MD, PHD ATTENDING AR/Constanza JOB: [id number] DOC: [id number] Patient has been asleep this shift. He [...] overnight coverage, Jasper Gastelum MD, via pager #[phone] Pt- George Styles. Sarah 1082. TM1. Was wondering if he can have his Melatonin order increased to 6mg. Per pt, he usually takes 8mg at home. -SAMI Duffy #[phone] Tati Charles RN Internal Medicine Daily Progress Note Patient: George Styles, 1970, [id number] Physician: Arelis Mera MD, PGY3, Pager #[phone], TM1 service Assessment/Plan: George Styles is a [...] home amlodipine 5mg CAD: non-obstructive CAD on [facility] 2018. - continue home aspirin 81mg daily, [...] Mera MD Mr. Styles was admitted to [address] [place] [address]. On admission to [facility], from outside facility a dual RN initial assessment of skin condition was performed by Izzy Gutierrez RN and Leroy Singleton RN. Skin Assessment: Skin within defined limits:Yes Jose Score: 20 Wound Vision Manugrapher images obtained: No LDA Added: No Based [...] when available. documented in this encounter [facility] 01-23-2024 Nurse Note Home Oxygen Qualification [...] at 4L of oxygen is also required.) [facility] 01-23-2024 History of Present illness [...] monitor Leonel Harris DO General Surgery Pager [phone] CM went to bedside to talk with patient. Patient states he has home oxygen through [employer]. He uses 2.5 LNC around the clock. Patient states his brother will bring a tank for discharge. Anticipate patient will discharge tomorrow AM. Brother updated. Girish Oro RN, BSN Clinical Presentation Team Member Please note that I am a float machine adjuster leader case trim and may not cover the same service every day. Please call the main Case Management office at [phone] for up-to-date coverage. Verified patients identity using [...] Daily Progress Note Patient: George Styles, 1970, [id number] Physician: Yury Ozuna MD, PGY1, Pager #[phone], CZ1 service Assessment/Plan: George Styles is a 53 [...] by transplant surgery on 01/22 (NPO at ca, updated type & screen) S/p Liver-Kidney Transplant [...] home amlodipine 5mg CAD: non-obstructive CAD on [facility] 2018. - continue home aspirin 81mg daily, [...] with the Nutrition plan outlined in the Outreach Specialist s note. DVT prophylaxis with lovenox [...] Oral BID AC Kelvin Pacheco MD, LU associate professor of physics Transplant nephrology Images from the original note were not included. Internal Medicine Daily Progress Note Patient: George Styles, 1970, [id number] Physician: Yury Ozuna MD, PGY1, Pager #[phone], KQ4 service Assessment/Plan: George Styles is a 53 [...] home amlodipine 5mg CAD: non-obstructive CAD on [facility] 2018. - continue home aspirin 81mg daily, [...] with the Nutrition plan outlined in the Outreach Specialist s note. DVT prophylaxis with lovenox [...] further questions. Name: Heidy Chatman Phone #: [phone] Date/Time: 01/19/2024 12:08 PM Time Spent: 15 minutes Associated attestation - Dorian Fidelina Ortiz [facility] - 01/19/2024 12:41 PM EST Department of Pharmacy Admission Medication Reconciliation Note Patient: George Styles Room/Bed: 1082/A I have reviewed the home medication list with the Fly Finisher. The home medication list status is: complete. All changes to the home medication list have been updated in IHIS. Updated HUMAN RESOURCES EXECUTIVE Med List: Prior to Admission Medications Prescriptions [...] questions. Name: Fidelina Alarcon Lydia Phone #: [phone] Date/Time: 01/19/2024 12:41 PM Internal Medicine Daily Progress Note Patient: George Styles, 1970, [id number] Physician: Yury Ozuna MD, PGY1, Pager #[phone], TM1 service Assessment/Plan: Acute Hypoxic Respiratory Insufficiency [...] home amlodipine 5mg CAD: non-obstructive CAD on [facility] 2018. - continue home aspirin 81mg daily, [...] with the Nutrition plan outlined in the Outreach Specialist s note. DVT prophylaxis with lovenox [...] Daily Progress Note Patient: George Styles, 1970, [id number] Physician: Yury Ozuna MD, PGY1, Pager #[phone], TM1 service Assessment/Plan: Updates: - continued diuresis [...] home amlodipine 5mg CAD: non-obstructive CAD on [facility] 2018. - continue home aspirin 81mg daily, [...] with the Nutrition plan outlined in the Outreach Specialist s note. DVT prophylaxis with lovenox [...] in resident note. Kelvin Pacheco MD, LU associate professor of physics Transplant nephrology Pt known to bench press operator from previous admissions. Provided emotional and spiritual support. Patient shared about: family support, medical course Clerical Manager provided: - Supportive presence - Active listening - Validation of feelings/emotions Patient encouraged to request a bench press operator as needed. Chaplains are available in-house 24 hours a day and 7 days a week. For urgent matters in [facility], please page [phone]. If the request is not urgent, please enter a consult. Consults are responded to within 24 hours. Senior Staff Clerical Manager Angie Singh Mdiv, [facility] [place] [phone] [email or web address] On-call TYLOR: call center coordinator Raheem: 22/06 Pager ,[facility], and Brock Hernandez Pager [phone] 01/18/24 1342 Clinical Encounter Type Visited With Patient Visit Type Introduction Pastoral Time Spent 15 min Referral Other (See Comment) (rounding) Spiritual Assessment Emotional Observation Coping well;Anxiety Hope Observation Specific hope focus Support Observation By Family Interventions Provided Active listening;Supportive presence Facilitated Verbalization of feelings;Identifying support system;Identifying Sources of spiritual well-being Explored Expectations;Treatment decisions Hand Launderer Education Hand Launderer Service Available Yes Educated Patient Outcomes Patient [...] interaction. Name: Fidelina Alarcon RPH Phone #: [phone] Date/Time: 01/18/2024 9:56 AM Discharge Planning Patient [...] Yes Name and Contact information: Gian Jensen ([phone]) Would you like to add additional adult [...] Is the patient from a facility or residential?: No Patient lives with: Alone Living Environment: [...] oxygen?: Yes Oxygen Provider and Contact : [employer] Liter-Flow?: Order for oxygen use?: unknown at [...] patient on Anticoagulation? : No [id number] [place] [address] - [address] [facility] [address] Personal Care Aide Does the patient or ocean import representative express financial concerns? : No Employed?: Disabled Coping/Stress Concerns about patient s coping and stress?: No Concerns about patient s caregiver s coping and stress?: No Values and Beliefs Cultural or yazdanism practices that may impact discharge planning and/or [...] Plan 1. Identified self and role as Presentation Team Member. 2. Confirmed and updated demographics and treatment team. 3. Presentation Team Member will continue to follow with medical team for any other additional discharge needs. Kasandra DON RN [facility] [phone] *Please note I am float CM and work Thursday and Thursday every other week. Please call [phone] for assist in my absence. Internal Medicine Daily Progress Note Patient: George Styles, 1970, [id number] Physician: Yury Ozuna MD, PGY1, Pager #[phone], TM1 service Assessment/Plan: Updates: - continue diuresis [...] home amlodipine 5mg CAD: non-obstructive CAD on [facility] 2018. - continue home aspirin 81mg daily, [...] ordered 2D echo. Kevin Sage MD, FASN Food Bagging Machine Operator of Clinical Medicine [facility] documented in this encounter [facility] 01-23-2024 Plan of care note [...] Guideline (CPG) Outcome: Progressing Flowsheets (Taken 01/23/2024 0632) Related Risk Factors (Acute Pain): surgery Signs and Symptoms (Acute Pain): verbalization of pain descriptors [facility] 01-22-2024 Hospital Discharge instructions Arelis [...] your doctor for further instructions. Please call [phone], Option 1 or [phone] to schedule your appointment with the Heart Failure Clinic. 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] POST OPERATIVE DIAGNOSIS Post-Op Diagnosis Codes: * High output congestive heart failure [I50.83] PROCEDURE PERFORMED Procedure(s) (LRB): LIGATION ANGIOACCESS AVF (Left) Resection of large aneurysmic vein PRIMARY CLOSURE Yes INTRAOPERATIVE FINDINGS No significant abnormalities SURGEON Surgeons and Role: * Jyoti Bryant MD, PhD - Primary ANESTHESIOLOGIST Anesthesiologist: Celena Tiwari MD; Kehinde Gutierrez MD PATTERN MAKER PROGRAMER: Raheem M Dando, COTTON MACHINE OPERATOR-PATTERN MAKER PROGRAMER Meat Wrapper Assisting: Mini Khan MD SURGICAL STAFF Branch Operations Coordinator: Zoila Lawrence RN Relief Branch Operations Coordinator: Marimar Saravia RN Relief Scrub: Briseyda Self Scrub Person: Cinda Mai RN Resident Assisting: Leonel Harris DO Fellow: Miki Mcgowan MD, MBBS COMPLICATIONS None ESTIMATED BLOOD LOSS Minimal SPECIMENS No specimen sent * No specimens in log * Jyoti Bryant MD, PhD January 22, 2024 1:34 PM [facility] Work Phone: 01-22-2024 Nurse Note Arrived to PACU assisted by anesthesiology. Connected to monitors. Turned side to side, OR linens removed, repositioned. Airway patent, patient breathing easily. Report received from surgical first assistant and report received from anesthesiology. Pt arrived awake. VSS. Sats slightly low. Pulm rehab used. Sats currently 3lpm @ 93%. Pt states he uses CPAP nocturnally. A&Ox4. Nerve block left arm, elevated. [facility] 01-22-2024 Surgery Postoperative evaluation and [...] Axillary block. SURGEON(S): Jyoti Bryant MD, PHD ENCODING MACHINE OPERATOR: Mynor Fall MD ESTIMATED BLOOD LOSS: Minimal. [...] Jyoti Bryant MD, PHD ATTENDING SHANNON/Constanza JOB: [id number] DOC: [id number] [facility] 01-22-2024 Plan of care note [...] 194 Plan Of Care Reviewed With: patient [facility] 01-20-2024 Consult note Associated Order (s): IP CONSULT TO SURGERY - TRANSPLANT (RENAL) Images from the original note were not included. TRANSPLANT SURGERY CONSULT NOTE: Consult: 01/20/2024, 4:03 PM Senior Technologist: Starla Morris MD Reason for Consult: Requesting Dr Carson Bryant for AVF revision/closure given new onset high output heart failure George Styles is a 53 y.o. male CURRENT HOSPITALIZATION LOS: Admit Date: 01/16/2024 [facility] Hospital LOS: 4 days George Styles [...] DAY SURGERY MAIN OR KIDNEY TRANSPLANT W/O [place] DEE-NI' NEPHRECTOMY N/A 04/12/2020 Laterality: N/A; Surgeon: LU [...] seen and staffed with Dr. Mcgowan fellow pediatric surgeon Thank you, Starla Morris MD Associated attestation - Jyoti Bryant MD, PhD - 01/22/2024 10:54 AM EST Beata Bryant MD, PhD, have independently seen and examined the patient, reviewed the labs, discussed the patient with the fellow/resident and agree with the note. [facility] Work Phone: 01-20-2024 Consult note Associated Order (s): IP CONSULT TO SURGERY - TRANSPLANT (RENAL) Images from the original note were not included. TRANSPLANT SURGERY CONSULT NOTE: Consult: 01/20/2024, 4:03 PM Senior Technologist: Starla Morris MD Reason for Consult: Requesting Dr Carson Bryant for AVF revision/closure given new onset high output heart failure George Styles is a 53 y.o. male CURRENT HOSPITALIZATION LOS: Admit Date: 01/16/2024 [facility] Hospital LOS: 4 days George Styles [...] DAY SURGERY MAIN OR KIDNEY TRANSPLANT W/O [place] DEE-NI' NEPHRECTOMY N/A 04/12/2020 Laterality: N/A; Surgeon: LU [...] Studies: Labs-CBC: WBC/Hgb/Hct/Plts: 3.79/12.5/38.9/166 (01/20 611) Labs-Chem 7([facility]): Bun/Creat/Cl/CO2/Glucose: 15/1.12/105/28/88 (01/20 611) Na/K+/Phos/Mg/Ca: 141/3.8/--/1.6/-- [...] seen and staffed with Dr. Mcgowan fellow pediatric surgeon Thank you, Starla Morris MD Associated attestation [...] DAY SURGERY MAIN OR KIDNEY TRANSPLANT W/O [place] DEE-NI' NEPHRECTOMY N/A 04/12/2020 Laterality: N/A; Surgeon: LU [...] (order for outpatient) Please SecureChat or Call ([phone]) for any questions. Await attending attestation for final recommendations. Hank Noel MD Division of Gastroenterology, Hepatology, and Nutrition Clinical Fellow, PGY-5 Pager: [phone] For urgent/stat calls or consults 5pm to 7am, please page the on-call GI fellow on QKamicata. [facility]--> Internal Medicine--> Gastroenterology, Hepatology, & Nutrition--> 1st Call Fel Alysia For urgent/stat calls or consults 7am to 5pm during the weekend, please page the on-call GI fellow on QGenda. [facility]--> Internal Medicine--> Gastroenterology, Hepatology, & Nutrition--> All Hep & East Wknd Cons Fel Day For follow up questions regarding this patient 7am to 5pm during the weekday, contact the Hepatology consults fellow or CARLOS A on QGenda. [facility]--> Internal Medicine--> Gastroenterology, Hepatology, [...] Estrada MD, MSc documented in this encounter [facility] 01-19-2024 Nurse Note 01/19/24 0900 [...] rest, 95-96% when talking/moving. Paulette Cordon RN [facility] 01-19-2024 Nurse Note Paged overnight coverage, Jasper Gastelum MD, via pager #[phone] Pt- George Styles. Sarah 1082. TM1. Was wondering if he can have his Melatonin order increased to 6mg. Per pt, he usually takes 8mg at home. -SAMI Duffy #[phone] Tati Charles RN [facility] 01-18-2024 Consult note Associated Order [...] DAY SURGERY MAIN OR KIDNEY TRANSPLANT W/O [place] DEE-NI' NEPHRECTOMY N/A 04/12/2020 Laterality: N/A; Surgeon: LU [...] (order for outpatient) Please SecureChat or Call ([phone]) for any questions. Await attending attestation for final recommendations. Hank Noel MD Division of Gastroenterology, Hepatology, and Nutrition Clinical Fellow, PGY-5 Pager: [phone] For urgent/stat calls or consults 5pm to 7am, please page the on-call GI fellow on LUVHANa. [facility]--> Internal Medicine--> Gastroenterology, Hepatology, & Nutrition--> 1st Call Fel Alysia For urgent/stat calls or consults 7am to 5pm during the weekend, please page the on-call GI fellow on LUVHANa. [facility]--> Internal Medicine--> Gastroenterology, Hepatology, & Nutrition--> All Hep & East Wknd Cons Fel Day For follow up questions regarding this patient 7am to 5pm during the weekday, contact the Hepatology consults fellow or CARLOS A on ArriveBefore. [facility]--> Internal Medicine--> Gastroenterology, Hepatology, [...] for outpatient) Michael Estrada MD, MSc [facility] Work Phone: 01-16-2024 Plan of care note Internal Medicine Daily Progress Note Patient: George Styles, 1970, [id number] Physician: Arelis Mera MD, PGY3, Pager #[phone], TM1 service Assessment/Plan: George Styles is a [...] home amlodipine 5mg CAD: non-obstructive CAD on [facility] 2018. - continue home aspirin 81mg daily, [...] MD, on rounds. Signed, Arelis Mera MD [facility] 01-16-2024 Nurse Note Mr. Styles was admitted to [address] [place] [address]. On admission to [facility], from outside facility a dual RN initial assessment of skin condition was performed by Izzy Gutierrez, RN and Leroy Singleton, SAMI. Skin Assessment: Skin within defined limits:Yes Jose Score: 20 Wound Vision Manugrapher images obtained: No LDA Added: No Based [...] room closest to nurses station when available. [facility] 01-16-2024 History and physical note Images from the original note were not included. Internal Medicine Admission History & Physical Patient: George Styles, 1970, [id number] Physician: Timothy Joseph MD, PGY1, Pager #[phone], TM 1 service Date of face to [...] DAY SURGERY MAIN OR KIDNEY TRANSPLANT W/O [place]OL[place] DEE-NI' NEPHRECTOMY N/A 04/12/2020 Laterality: N/A; Surgeon: LU [...] itraconazole Fax results to: Dr. White - [phone] Transplant Neph - [phone] Gabapentin 400 MG capsule Sig: Take 1 [...] erythema: Skin: No jaundice or rash Neuro: dental hygienist 3-7, 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 Strength grossly [...] home amlodipine 5mg CAD: non-obstructive CAD on [facility] 2018. - continue home aspirin 81mg daily [...] Erma Roe, Fidelina Pierson, Luisa Steven, Renee iRvera, Daisha Max Merchandising Execution Associate: José Miguel Garnica All Txt: 04/13/2020 (Kidney), [...] results found for: CYCLOSPORIN , CYCLOSPORIN2 , [id number] , CYCLORAND No results found for: SIROLIMUS [...] request in chart. Kevin Sage MD Pager [phone] [facility] 01-16-2024 History and physical note Images from the original note were not included. Internal Medicine Admission History & Physical Patient: George Styles, 1970, [id number] Physician: Timothy Joseph MD, PGY1, Pager #[phone], TM 1 service Date of face to [...] DAY SURGERY MAIN OR KIDNEY TRANSPLANT W/O [place] DEE-NI' NEPHRECTOMY N/A 04/12/2020 Laterality: N/A; Surgeon: LU [...] itraconazole Fax results to: Dr. White - [phone] Transplant Neph - [phone] Gabapentin 400 MG capsule Sig: Take 1 [...] erythema: Skin: No jaundice or rash Neuro: dental hygienist 3-7, 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 Strength grossly [...] home amlodipine 5mg CAD: non-obstructive CAD on [facility] 2018. - continue home aspirin 81mg daily Gout: continue home allopurinol 200mg daily BPH: continue home flomax 0.4mg daily Complexity. Obesity Body mass index is 32.8 kg/m . - Follow with PCP for dietary and lifestyle modifications. Any conditions listed below are present on admission unless otherwise specified. . DVT prophylaxis with lovenox Disposition: admitted to [facility] Code status is Full Staffed with Timothy [...] Pierson, Luisa Steven, Renee Rivera, Daisha Max Merchandising Execution Associate: José Miguel Garnica All Txt: 04/13/2020 (Kidney), [...] results found for: CYCLOSPORIN , CYCLOSPORIN2 , [id number] , CYCLORAND No results found for: SIROLIMUS [...] request in chart. Kevin Sage MD Pager [phone] documented in this encounter [facility] 01-12-2024 History of Present illness [...] Prograf 0.2 MG Contact Info: Specialty ([place]anc[place]) [phone] [facility] [phone] [facility] [phone] [facility] [phone] Bedside Delivery ([facility]) [phone] [facility] RX OUTREACH ADVANCED: Call Information: Date and Time of Contact: 01/25/2024 10:23 AM Method of Contact: By Phone Contact Type: Prescriptions Contactor: [facility] Contactee: Patient Contact Outcome: Left message (prograf myco) Contact Info: Specialty ([place]) [phone] [facility] [phone] [facility] [phone] [facility] [phone] Bedside Delivery ([facility]) [phone] documented [facility] encounter [facility] 01-12-2024 History of Present illness [...] Prograf 0.2 MG Contact Info: Specialty (Yanci) [phone] [facility] [phone] [facility] [phone] Arheem [phone] Bedside Delivery ([facility]) [phone] [facility] RX OUTREACH ADVANCED: Call Information: Date and Time of Contact: 01/25/2024 10:23 AM Method of Contact: By Phone Contact Type: Prescriptions Contactor: [facility] Contactee: Patient Contact Outcome: Left message (prograf myco) Contact Info: Specialty ([place]anci) [phone] [facility] [phone] [facility] [phone] Raheem [phone] Bedside Delivery ([facility]) [phone] [facility] RX OUTREACH ADVANCED: Call Information: Date and Time of Contact: 01/27/2024 10:19 AM Method of Contact: By Phone Contact Type: Prescriptions Contactor: [facility] Contactee: Patient Contact Outcome: Left message (myco prograf) Contact Info: Specialty ([place]) [phone] [facility] [phone] [facility] [phone] Raheem [phone] Bedside Delivery ([facility]) [phone] documented in [facility] encounter [facility] 01-12-2024 History of Present illness [...] Prograf 0.2 MG Contact Info: Specialty ([place]) [phone] [facility] [phone] [facility] [phone] [facility] [phone] Bedside Delivery ([facility]) [phone] [facility] RX OUTREACH ADVANCED: Call Information: Date and Time of Contact: 01/25/2024 10:23 AM Method of Contact: By Phone Contact Type: Prescriptions Contactor: [facility] Contactee: Patient Contact Outcome: Left message (prograf myco) Contact Info: Specialty (Yanci) [phone] [facility] [phone] [facility] [phone] [facility] [phone] Bedside Delivery ([facility]) [phone] [facility] RX OUTREACH ADVANCED: Call Information: Date and Time of Contact: 01/27/2024 10:19 AM Method of Contact: By Phone Contact Type: Prescriptions Contactor: [facility] Contactee: Patient Contact Outcome: Left message (myco prograf) Contact Info: Specialty (Yanci) [phone] [facility] [phone] [facility] [phone] [facility] [phone] Bedside Delivery ([facility]) [phone] [facility] OUTREACH ADVANCED: Call Information: Date and Time of Contact: 02/01/2024 3:22 PM Contact Type: Prescriptions Contactor: [facility] Contactee: Patient Contact Outcome: Left message Shipping/Pickup: Medication Name: Mycophenolate 360mg and Prograf 0.2mg Pack Contact Info: Specialty ([place]anci) [phone] Jakob [phone] [facility] [phone] Raheem [phone] Bedside Delivery ([facility]) [phone] documented in this encounter [facility] 01-06-2024 History of Present illness Narrative [...] wanted to send him to [facility] neurology but it is out of [...] see neurologist in [facility] Immunocompromised (CMS/HCC) Hypertension ([facility]) No change in meds Check [...] Prograf 0.2 MG Contact Info: Specialty ([place]anci) [phone] [facility] [phone] [facility] [phone] [facility] [phone] Bedside Delivery ([facility]) [phone] [facility] RX OUTREACH ADVANCED: Call Information: Date and Time of Contact: 10/23/2023 2:00 PM Method of Contact: By Phone Contact Type: Prescriptions Contactor: [facility] Contactee: Patient Contact Outcome: Left message and Call back later Shipping/Pickup: Medication Name: Mycophenolate 360mg and Prograf 0.2mg Contact Info: Specialty ([place]) [phone] [facility] [phone] [facility] [phone] [facility] [phone] Bedside Delivery ([facility]) [phone] documented in this encounter [facility] 09-11-2023 Miscellaneous Notes Pt [...] oxygen during the night. pt will picker operator his oxygen from [employer], 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 This RN made [...] Patient seen ambulating in the velazquez with RETAIL PLANNER. Patient was mildly short of breath on [...] & HR 114. Messaged Mainor Loomis, via [employer] secure chat, Temp 100.8. His tylenol order [...] short period of time. 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 Episode of [...] Critical Care Medicine Message Mainor Loomis, via Glof[employer] secure chat, Good evening, just an FYI, [...] short period of time. 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 This morning, [...] [address] Loera here also (surfboard designer) Dr. Diaz aware of pt's increased oxygen [...] regular sleep/rest pattern promoted Sent a secure Glofox chat to Rosi LUZ concerning patient's temp [...] Medicine-Pediatrics, PGY-2 Mr. Styles was admitted to [address] [place] [address]. On admission to [facility], from home a [...] when available. documented in this encounter [facility] 09-11-2023 History of Present illness Narrative Provided follow-up emotional and spiritual support. Patient shared about rosemary of discharge and looking forward to seeing family Clerical Manager provided: - Supportive presence - Active listening - Validation of feelings/emotions Patient encouraged to request a bench press operator as needed. Chaplains are available in-house 24 hours a day and 7 days a week. For urgent matters in [facility], please page [phone]. If the request is not urgent, please enter a consult. Consults are responded to within 24 hours. Senior Staff Clerical Manager Angie Singh Mdiv, [facility] [place] [phone] [email or web address] 22/06 On-call [place]: [phone] 22/06 Pager ,KIKE, and Brock Hernandez Pager [phone] 09/11/23 1430 Clinical Encounter Type Visited With Patient Visit Type Follow-up Pastoral Time Spent 15 min Referral Other (See Comment) (rounding) Spiritual Assessment Spiritual Observation Spirituality helpful Emotional Observation Coping well Hope Observation Specific hope focus Support Observation By Family Interventions Provided Active listening;Supportive presence Facilitated Verbalization of feelings Explored Expectations Hand Launderer Education Hand Launderer Service Available Yes Educated Patient Plan of Care Continue Visiting PRN Images from the original note were not included. [facility] ([facility]) Note: Non-Verbal Med Rec [facility] received the following discharge prescription(s): Total cost is $0. I have reviewed the Discharge Rx Reconciliation Report. The discharge prescription(s) will be delivered to the patient on 09/11/2023. Dimitrios Gurrola RPh,PharmD Specialty ([place]) [phone] [facility] [phone] [facility] Bedside Delivery [phone] [facility] [phone] [facility] Bedside Delivery [phone] [facility] [phone] [facility] Bedside Delivery [phone] Ethan [phone] Willard [phone] Internal Medicine Daily Progress Note Patient: George Styles, 1970, [id number] Physician: Evan Kelly MD, PGY-1, TM1 service Subjective/Interval History: Patient continues to require oxygen overnight for desaturations. With insurance limitations, only accepting agency to provide home oxygen backed out. After calling them to discuss, Lynn stated she would be willing to have patient drive to their facility to picker operator supplies, however they close at 5pm. 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 His [place] kidney disease was noted to be presumed [...] losartan 50mg BID CAD: non-obstructive CAD on [facility] 2018. - continue home aspirin 81mg daily, [...] 5.05 (H) 11/19/2018 Kevin Sage MD, MADISONN Food Bagging Machine Operator of Clinical Medicine [facility] Images from the original note were not included. Final Discharge Planning and Transportation Final Discharge Planning Discharge Disposition: Home Services at Discharge: Outpatient clinical services (ie: lab draws, transfusions, injectables) (Home Oxygen by [employer]) Selected Continued Care - Admitted Since 08/28/2023 Durable Medical Equipment Coordination complete. Service Provider Selected Services Address Phone Fax Patient Preferred [employer] [facility] Durable Medical Equipment [facility] [phone] Internal Comment last updated by Lora Lawrence RN 09/10/2023 5082 Correct contact information: [employer] [address] [place] [address] [place] [address] foundation maker- you do not need to call at discharge, I already notified the company. Addendum 1523 [employer] notified this CM they are out of patient's insurance area and will not be able to service this patient at time of discharge. Provider notified. Addendum [phone] Dr [facility] spoke [facility] Lynn and she said they are willing to accept patient if the patient would drive to the [place] office and picker operator the supplies. Patient is willing to [...] Lora Colón RN, MSN, CCM, CMCN Clinical Presentation Team Member- [facility] Transplant #[phone] Department of Pharmacy Transplant Note Patient: George [...] dose adjustment Name: Matt Kramer RPh,PharmD Phone: [phone] Date/Time: 09/10/2023 11:33 AM This CM sent referral via [employer]idin for O2 concentrator to 4 agencies Start date today Timer set for 1330 [facility] [employer] Addendum 1332 One accepting company reserved in Aidin [facility] [address] [place] [address] Lora Colón RN, MSN, CCM, CMCN Clinical Presentation Team Member- [facility] Transplant #[phone] NUTRITION FOLLOW-UP Nutrition Plan of Care: 1. Continue current diet order. 2. No oral supplements warranted at this time. 3. Monitor for significant weight changes. Monitor GI, skin integrity. 4. Monitor and encourage po intakes with goal of average po being 75-100%. 5. medical laboratory technicians to follow. ___ Met with patient today [...] time. Will continue to monitor. RHIANNON BirminghamR Pager:[phone] Transplant Infectious Disease (Team 3) Progress Note [...] sign off. Please Epic message or page [phone] with questions. 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 His [place] kidney disease was noted to be presumed [...] losartan 50mg BID CAD: non-obstructive CAD on [facility] 2018. - continue home aspirin 81mg daily, [...] to follow. Please Epic message or page [phone] with questions. 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 His [place] kidney disease was noted to be presumed [...] losartan 50mg BID CAD: non-obstructive CAD on [facility] 2019. - continue home aspirin 81mg daily, holding atorvastatin 20mg daily Gout: continue home allopurinol 200mg daily BPH: continue home flomax 0.4mg daily DVT PPX: SQH Code Status: Full Code Disposition: Pending clinical course. Anticipate eventual discharge home. Discussed with team and attending, Kevin Sage MD, on rounds. 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 His [place] kidney disease was noted to be presumed [...] losartan 50mg BID CAD: non-obstructive CAD on [facility] 2018. - continue home aspirin 81mg daily, [...] CREATSERUM 1.17 04/28/2023 CREATSERUM 5.05 (H) 11/19/2018 Kvein Sage MD, SERA Food Bagging Machine Operator of Clinical Medicine [facility] Transplant Infectious [...] to follow. Please Epic message or page [phone] with questions. Ann Marie Haskins MD PGY-4, [...] he continues to improve. Please message via Glof[employer] secure chat or page with any questions or concerns. Evan White DO Food Bagging Machine Operator Division of Infectious Disease Transplant [...] to follow. Please Epic message or page [phone] with questions. Evan White DO Transplant Infectious Diseases Images from the original note were not included. Pulmonary/Critical Care Medicine Daily Progress Note Reason for Consultation: bronch for infectious workup Requesting Physician: Dr. Sage CURRENT HOSPITALIZATION: Admit Date: 08/28/2023 [facility] Hospital LOS: 9 days Impression [...] and interpreted reviewed the radiographic [facility] 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 His [place] kidney disease was noted to be presumed [...] losartan 50mg BID CAD: non-obstructive CAD on [facility] 2018. - continue home aspirin 81mg daily, [...] 5.05 (H) 11/19/2018 Kevin Sage MD, MADISONN Food Bagging Machine Operator of Clinical Medicine [facility] Images from the original note were not included. Pulmonary/Critical Care Medicine Daily Progress Note Reason for Consultation: bronch for infectious workup Requesting Physician: Dr. Sage CURRENT [facility]OSPITAL[facility]ATION: [facility]: [facility] 8 days Impression 1. [...] and interpreted reviewed the radiographic data in [employer]. Acute Occupational Therapy Evaluation Prior to Admission [...] Assessment: Transfer Assessment: Sit to Stand Transfer Yancey Level: Sit->Stand: independent Skilled Intervention/Details: Sit->Stand: x1 from EOB, x1 from toilet Stand to Sit Transfer Yancey Level: Stand->Sit: independent Skilled Intervention/Details: Stand->Sit: x1 to toilet, x1 to EOB Functional Mobility: Functional Mobility Yancey Level: Functional Mobility/Gait: independent Ambulation Distance (Feet): [...] Assistance Eatin - No Assistance CURRENT AM-[facility] Activity Raw Score: 21 CURRENT AM-PAC Activity [...] Intact Mobility Assessment: Supine to Sit Mobility Yancey Level: Supine->Sit: modified afton Bed Features/Set-up: Supine->Sit: Head of bed elevated Sit to Supine Mobility Yancey Level: Sit->Supine: not tested Balance: Sitting Balance [...] environment. Transfer Assessment: Sit to Stand Transfer Yancey Level: Sit->Stand: independent Skilled Intervention/Details: Sit->Stand: From EOB x 2 without difficulty. Stand to Sit Transfer Yancey Level: Stand->Sit: independent Assistive Device: Stand->Sit: armed chair Skilled Rationale: Verbal cues, Positioning Gait/Functional Mobility: Gait Assessment Yancey Level: Gait: stand-by assist Assistive Device: Gait: rollator Ambulation Distance (Feet): 400 Gait Deviations Identified: decreased grace, decreased gait speed Gait Skilled Rationale: verbal, upright posture, increase step length, increase foot clearance Skilled Intervention/Details - Gait: Reasonable foot clearnce without loss of balance but endorsing dyspnea as 6-7/10. 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 His [place] kidney disease was noted to be presumed [...] losartan 50mg BID CAD: non-obstructive CAD on [facility] 2018. - continue home aspirin 81mg daily, [...] 5.05 (H) 11/19/2018 Kevin Sage MD, SERA Food Bagging Machine Operator of Clinical Medicine [facility] Transplant Infectious [...] to follow. Please Epic message or page [phone] with questions. Evan White DO Transplant Infectious Diseases Images from the original note were not included. Internal Medicine Daily Progress Note Patient: George Styles, 1970, [id number] Physician: Evan Kelly MD, PGY-1, TM1 service [...] s/p combined Liver-kidney transplant on 04/13/20. His [place] kidney disease was noted to be presumed [...] losartan 50mg BID CAD: non-obstructive CAD on [facility] 2018. - continue home aspirin 81mg daily, [...] P 450 system Kevin Sage MD, SERA Food Bagging Machine Operator of Clinical Medicine [facility] ERT Note: ERT [...] PhD Internal Medicine and Pediatrics PGY-3 [facility] Brief plan of care update: [...] PhD Internal Medicine and Pediatrics PGY-3 [facility] Transplant Infectious Disease (Team 3) [...] to follow. Please Epic message or page [phone] with questions. Evan White DO Transplant Infectious Diseases Internal Medicine Daily Progress Note Patient: George Styles, 1970, [id number] Physician: Evan Kelly MD, PGY-1, TM1 service [...] s/p combined Liver-kidney transplant on 04/13/20. His [place] kidney disease was noted to be presumed [...] 2/2 renal function CAD: non-obstructive CAD on [facility] 2018. - continue home aspirin 81mg daily, [...] 5.05 (H) 11/19/2018 Kevin Sage MD, MADISONN Food Bagging Machine Operator of Clinical Medicine [facility] Internal Medicine Daily Progress Note Patient: George Styles, 1970, [id number] Physician: Evan Kelly MD, PGY-1, TM1 service [...] s/p combined Liver-kidney transplant on 04/13/20. His [place] kidney disease was noted to be presumed [...] 2/2 renal function CAD: non-obstructive CAD on [facility] 2018. - continue home aspirin 81mg daily, [...] 5.05 (H) 11/19/2018 Kevin Sage MD, FASN Food Bagging Machine Operator of Clinical Medicine [facility] Progression of [...] follow up Lora Colón RN, MSN, CCM, [facility] Clinical Presentation Team Member- [facility] Transplant #[phone] Made introductory visit with patient. Provided emotional and spiritual support. Patient shared about: - Source of Rosemary: Camping/Fishing/Family - Spirituality/Anabaptist Affiliation: raised Che[place]ism - Family Support/history - Experience with illness/hospital course - Hopes for healing/future Clerical Manager provided: - Supportive presence - Active listening - Validation of feelings/emotions - Pledged prayer Patient encouraged to request a bench press operator as needed. Chaplains are available in-house 24 hours a day and 7 days a week. For urgent matters in [facility], please page [phone]. If the request is not urgent, please enter a consult. Consults are responded to within 24 hours. Senior Staff Clerical Manager Angie Singh Mdiv, [facility] [place] [phone] [email or web address] 22/06 On-call [place]: [phone] 22/06 Pager KIKE SNIDER, and Brock Hernandez Pager [phone] 09/02/23 5550 Clinical Encounter Type Visited With Patient Visit Type Introduction Pastoral Time Spent 15 min Referral Other (See Comment) (rounding) Spiritual Assessment Spiritual Observation Spirituality helpful Emotional Observation Coping well Hope Observation Specific hope focus Support Observation By Family Interventions Provided Active listening;Supportive presence Facilitated Verbalization of feelings Explored Expectations Hand Launderer Education Hand Launderer Service Available Yes Educated Patient Outcomes Patient Outcomes Reduced distress Plan of Care Continue Visiting PRN NUTRITION RISK SCREENING NOTE Nutrition Plan of Care: 1. Continue current diet order. 2. No oral supplements warranted at this time. 3. Monitor for significant weight changes. Monitor GI and skin integrity. 4. Monitor and encourage po intakes with goal of average po being 100%. 5. medical laboratory technicians to follow. George Styles is a 53 y.o. 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 His [place] kidney disease was noted to be presumed hepatorenal syndrome. His post-transplant course was noteworthy for nephrostomy tube (05/17/2022-09/10/2022) due to concern for ureteral stone. He presents as a direct admission for fever, cough, for infectious workup. Pt unavailable and information obtained via chart review Sales Expert Screening Pt's appetite is good. Pt with [...] with meds Food Allergies reviewed:Shellfish Cultural or Anabaptist Restrictions/Preferences: None GI: Last Bowel Movement: 09/01/23 [...] time. Will continue to monitor. RHIANNON BirminghamR Pager:[phone] Internal Medicine Daily Progress Note Patient: George Styles, 1970, [id number] Physician: Evan Kelly MD, PGY-1, TM1 service [...] s/p combined Liver-kidney transplant on 04/13/20. His [place] kidney disease was noted to be presumed [...] 2/2 renal function CAD: non-obstructive CAD on [facility] 2018. - continue home aspirin 81mg daily, [...] as outlined above. Kevin Sage MD Pager [phone] Summary: Pharmacy Med Rec Department of Pharmacy [...] Supply: 90 Refills: 0 Provider: Zuly Bruno JUKE BOX MECHANIC Pharmacy: [facility] Other Comments: Patient reported his Last Home Dose of mycophenolate & tacrolimus was on 08/28/23 at 0900. Patient reported he was taking Bactrim and benzonatate for fevers and a cough he was having. Please feel free to contact me with any further questions. Name: Heidy Chatman Phone #: [phone] Date/Time: 09/01/2023 2:01 PM Time Spent: 15 minutes Associated attestation - Matt Kramer RPh,PharmD - 09/01/2023 2:28 PM EDT Department of Pharmacy Admission Medication Reconciliation Note Patient: George Styles Room/Bed: 1062/A I have reviewed the home medication list with the Fly Finisher. All changes to the home medication list have been updated in IHIS. Updated HUMAN RESOURCES EXECUTIVE Med List: Prior to Admission Medications Prescriptions [...] questions. Name: Matt Kramer RPh,Frankie Phone #: [phone] Date/Time: 09/01/2023 2:28 PM Transplant Infectious Disease [...] crypto antigen, EBV PCR -follow pending histo, [id number] labs These recommendations were discussed with the primary team. Transplant ID (Team 3) will continue to follow. Please Epic message or page [phone] with questions. Evan White DO Transplant Infectious Diseases Internal Medicine Daily Progress Note Patient: George Styles, 1970, [id number] Physician: Evan Kelly MD, PGY-1, TM1 service [...] s/p combined Liver-kidney transplant on 04/13/20. His [place] kidney disease was noted to be presumed [...] 2/2 renal function CAD: non-obstructive CAD on [facility] 2018. - continue home aspirin 81mg daily, [...] 5.05 (H) 11/19/2018 Kevin Sage MD, SERA Food Bagging Machine Operator of Clinical Medicine [facility] Discharge Planning [...] Yes Name and Contact information: Gian Styles ([phone]) Reviewed and Updated in Demographics? : Yes Outpatient Providers Does patient have a primary care physician? : Yes When was the patient's last PCP visit?: > 30 days Does the patient follow any specialists?: No Reviewed and updated Care Team?: Yes Patient Care Team: Zuly Bruno CNP as PCP - General Environment/Caregivers Is the patient from a facility or residential?: No Patient lives with: Alone Living Environment: [...] patient on Anticoagulation? : No [id number] [place] [address] - [address] [address] Personal Care Aide Does the patient or ocean import representative express financial concerns? : No Employed?: Disabled Coping/Stress Concerns about patient s coping and stress?: No Concerns about patient s caregiver s coping and stress?: No Values and Beliefs Cultural or yazdanism practices that may impact discharge planning and/or [...] Plan 1. Identified self and role as Presentation Team Member. 2. Confirmed and updated demographics and treatment team. 3. Presentation Team Member will continue to follow with medical team/pt for any other additional discharge needs. Kasandra DON RN [facility] [phone] *Please note I am float and work Thursday and Thursday every other week. Please call [phone] for assist in my absence. Internal Medicine Daily Progress Note Patient: George Styles, 1970, [id number] Physician: Evan Kelly MD, PGY-1, TM1 service [...] s/p combined Liver-kidney transplant on 04/13/20. His [place] kidney disease was noted to be presumed [...] 2/2 renal function CAD: non-obstructive CAD on [facility] 2018. - continue home aspirin 81mg daily, [...] 5.05 (H) 11/19/2018 Kevin Sage MD, MADISONN Food Bagging Machine Operator of Clinical Medicine [facility] Internal Medicine Daily Progress Note Patient: George Styles, 1970, [id number] Physician: Laurel Serrano MD, PhD, PGY-3, TM1 [...] s/p combined Liver-kidney transplant on 04/13/20. His [place] kidney disease was noted to be presumed [...] losartan 50mg BID CAD: non-obstructive CAD on [facility] 2018. - continue home aspirin 81mg daily, atorvastatin 20mg daily Gout: continue home allopurinol 200mg daily BPH: continue home flomax 0.4mg daily DVT PPX: SQH Code Status: Full Code Disposition: Pending clinical course. Anticipate eventual discharge home. Discussed with team and attending, Kevin Sage MD, on rounds. Signed, Laurel Serrano MD, PhD documented in this encounter [facility] 09-10-2023 Hospital Discharge instructions Laurel Serrano [...] sleep doctor. You will need to picker operator the oxygen concentrator when you leave [...] on healthy foods. documented in this encounter [facility] 09-01-2023 Consult note Associated Order (s): IP CONSULT TO PULMONOLOGY Pulmonary Medicine Inpatient Consultation Reason for Consultation: bronch for infectious workup Requesting Physician: Dr. Sage Pulmonary Attending Physician: Dr. Diaz CURRENT HOSPITALIZATION: Admit Date: 08/28/2023 [facility] Hospital LOS: 4 days Impression/Recommendations: George [...] short period of time. 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 Other histories as documented in the [...] ill contacts. He traveled to [place] to [facility] in May. REVIEW OF SYSTEMS A complete [...] DAY SURGERY MAIN OR KIDNEY TRANSPLANT W/O [place] DEE-NI' NEPHRECTOMY N/A 04/12/2020 Laterality: N/A; Surgeon: LU [...] Alamo MD I can be reached via Glof[employer] secure message (preferred) or Pager #[phone] documented in this encounter [facility] 08-28-2023 History and physical note Images from the original note were not included. Internal Medicine Admission History & Physical Patient: George Styles, 1970, [id number] Physician: Aric Turner MD, PGY1, Pager #[phone], TY service Date of face to face patient [...] So he went to see the transplant ultrasonic welding machine operator. He was found elevated Cr [...] Appetite is ok now. Urine is about 5701-6398 ml every day. Stool every day, no [...] DAY SURGERY MAIN OR KIDNEY TRANSPLANT W/O [place] DEE-NI' NEPHRECTOMY N/A 04/12/2020 Laterality: N/A; Surgeon: LU [...] s/p combined Liver-kidney transplant on 04/13/20. His [place] kidney disease was noted to be presumed [...] Urinary histoplasmosis - PJP, candid PCR - Senior Technologist transplant ID Acute Kidney Injury with Kidney [...] losartan 50mg BID CAD: non-obstructive CAD on [facility] 2018. - continue aspirin 81mg daily, atorvastatin [...] Pierson, Luisa Steven, Renee Rivera, Daisha Max Merchandising Execution Associate: José Miguel Garnica All Txt: 04/13/2020 (Kidney), [...] results found for: CYCLOSPORIN , CYCLOSPORIN2 , [id number] , CYCLORAND No results found for: SIROLIMUS [...] Rest as above. Kevin Sage MD Pager [phone] documented in this encounter [facility] 08-28-2023 History of Present illness Narrative Images from the original note were not included. 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 Merchandising Execution Associate: Anayeli Burt Date of Liver Transplant: 04/13/2020 (Kidney), 04/13/2020 (Liver) 3 years 4 months post Liver/Kidney Transplant Primary Disease: Hypertensive Nephrosclerosis Transplant Automotive Parts Clerk: Erma Roe/ Daisha Max Primary Care [...] None Specified Preferred Lab: [facility] Change in lab frequency / [...] ADDITIONAL INFORMATION: None Specified, [id number] [place] [address] - [address] [address] [facility] [address], [address] [facility] [address] [id number] [place] [address] [address] [facility] [address] [facility] [address] [facility] [address], [place] [address] [facility] [address] ROS and SCREEN: Chest Pain: negative Cough: [...] PHYSICIAN: I saw George Styles at the [facility] on 08/28/2023. Patient is a 53 y.o. 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 His [place] kidney disease was noted to be presumed [...] DAY SURGERY MAIN OR KIDNEY TRANSPLANT W/O [place] DEE-NI' NEPHRECTOMY N/A 04/12/2020 Laterality: N/A; Surgeon: LU [...] you have any questions. Steve Latham MD rail car mechanic Division of Nephrology [facility] documented in this encounter [facility] 08-28-2023 Instructions Mainor Busby RN - 08/28/2023 2:15 PM EDT - Admission for fevers, cough, and night sweats documented in this encounter [facility] 08-19-2023 History of Present illness Narrative [facility]: Call Information: Date and Time of Contact: 08/19/2023 2:52 PM Method of Contact: By Phone Contact Type: Prescriptions Contactor: [facility] Contactee: Patient Shipping/Pickup: Medicare B Refill?: No Medication Name: Tacro 0.5mg Delivery Method: Air Delivery Location: Home Signature Required: No Mailing/Pickup Date: 08/25/2023 Shipping Address: [address] [place] [address] [address] Contact Info: Specialty ([place]) [phone] Jakob [phone] [facility] [phone] Raheem [phone] Bedside Delivery ([facility]) [phone] documented in this encounter [facility] 06-12-2023 History of Present illness Narrative Images from the original note were not included. George Styles is a 53 y.o. 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 No longer follows with a local ultrasonic welding machine operator. History of Present Illness: Since [...] and lab results. Rebeca Gutierrez MSN, RN, COTTON MACHINE OPERATOR-BC, CCTN Certified Nurse Practitioner Comprehensive Transplant Center [facility] [address] [facility] [address] documented in this encounter [facility] 06-12-2023 Instructions JEANNA Hess - 06/12/2023 3:00 PM EDT No change in immunosuppression. [facility] History of Present illness Narrative [facility]: Call Information: Method of Contact: By Phone Contact Type: Prescriptions Contactor: [facility] OP Contactee: Patient Contact Outcome: Left message Shipping/Pickup: Medication Name: Mycophenolate sod 180 mg Contact Info: Specialty ([place]) [phone] [facility] [phone] [facility] [phone] Raheem [phone] Bedside Delivery ([facility]) [phone] [facility]: Call Information: Date and Time of Contact: 06/12/2023 9:43 AM Method of Contact: By Phone Contact Type: Prescriptions Contactor: [facility] Contactee: Patient Contact Outcome: Left message and Follow-up Shipping/Pickup: Medicare B Refill?: No Medication Name: Myco 180 Contact Info: Specialty ([place]) [phone] [facility] [phone] [facility] [phone] Raheem [phone] Bedside Delivery ([facility]) [phone] [facility]: Call Information: Date and Time of Contact: 06/12/2023 10:08 AM Method of Contact: By Phone Contact Type: Prescriptions Contactor: [facility] Contactee: Patient Shipping/Pickup: Medicare B Refill?: No Medication Name: Mycophenolate 180mg DR Delivery Method: Air Delivery Location: Home Signature Required: No Mailing/Pickup Date: 06/17/2023 Shipping Address: [address] [place] [address] Contact Info: Specialty ([place]) [phone] [facility] [phone] [facility] [phone] Raheem [phone] Bedside Delivery ([facility]) [phone] documented in this encounter [facility] 03-12-2023 History of Present illness Narrative [facility]REACH ADVANCED: Call Information: Date and Time of Contact: 03/12/2023 10:34 AM Method of Contact: By Phone Contact Type: Prescriptions Contactor: [facility] Contactee: Patient Shipping/Pickup: Medicare B Refill?: No Medication Name: Mycophenoloate sod 360 mg prednisone 5mg Delivery Method: Air Delivery Location: Home Signature Required: No Mailing/Pickup Date: 03/16/2023 Shipping Address: [address] [place] [address] Contact Info: Specialty ([place]) [phone] [facility] [phone] [facility] [phone] Raheem [phone] Bedside Delivery ([facility]) [phone] [facility]: Call Information: [...] No Mailing/Pickup Date: 03/19/2023 Shipping Address: [address] Contact Info: Specialty ([place]) [phone] [facility] [phone] [facility] [phone] [facility] [phone] Bedside Delivery ([facility]) [phone] documented in this encounter [facility] 03-10-2023 History of Present illness Narrative [facility]RE[facility]: Call Information: Date and Time of Contact: 03/10/2023 12:00 PM Method of Contact: By Phone Contact Type: Prescriptions Contactor: [facility] Contactee: Patient Contact Outcome: Left message and Call back later Shipping/Pickup: Medication Name: Mycophenolate ; Tacrolimus Contact Info: Specialty ([place]) [phone] [facility] [phone] [facility] [phone] [facility] [phone] Bedside Delivery ([facility]) [phone] documented in this encounter [facility] 03-10-2023 History of Present illness Narrative [facility]REACH [facility]: Call Information: Date and Time of Contact: 03/10/2023 12:00 PM Method of Contact: By Phone Contact Type: Prescriptions Contactor: [facility] Contactee: Patient Contact Outcome: Left message and Call back later Shipping/Pickup: Medication Name: Mycophenolate ; Tacrolimus Contact Info: Specialty ([place]) [phone] [facility] [phone] [facility] [phone] [facility] [phone] Bedside Delivery ([facility]) [phone] [facility]REACH [facility]ANCED: Call Information: Date and Time of Contact: 03/12/2023 10:32 AM Method of Contact: By Phone Contact Type: Prescriptions Contactor: [facility] Contactee: Patient Contact Outcome: Left message Shipping/Pickup: Medication Name: Mycophenolate sodium (MYFORTIC) 180 MG Tab tacrolimus 0.5 mg Contact Info: Specialty ([place]) [phone] Jakob [phone] [facility] [phone] Raheem [phone] Bedside Delivery ([facility]) [phone] documented in this encounter [facility] 01-16-2023 History of Present illness Narrative -Referring Provider for today's consult: Daisha Max DO -Primary Care Provider: Zuly Bruno History of Present Illness George Styles is a 52 y.o. male who presents [facility] Transplant Hepatology Clinic today for follow-up [...] DAY SURGERY MAIN OR KIDNEY TRANSPLANT W/O [place] DEE-NI' NEPHRECTOMY N/A 04/12/2020 Laterality: N/A; Surgeon: LU [...] Explant Pathology Pathologic Diagnosis A. [place] liver, orthotopic liver transplant resection (1458 gram): [...] A/P with IV contrast (06/27/2022): 1. Both [place] kidneys are atrophic with improvement in right-sided [...] frequent nighttime urination, etc). Daisha Max DO Food Bagging Machine Operator Gastroenterology, Hepatology and Nutrition [facility] Pager: [phone] Images from the original note were not included. 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 Merchandising Execution Associate: Anayeli Burt Date of Liver Transplant: 04/13/2020 (Kidney), 04/13/2020 (Liver) 2 years, 8 months post Liver/Kidney Transplant Primary Disease: Hypertensive Nephrosclerosis Transplant Automotive Parts Clerk: Steve Latham Primary Care physician: Zuly [...] levels: No results found for: CYCLOSPORIN, CYCLOSPORIN2, SXLSTTCVN4AM, CYCLORAND No components found for: CYCLOSPORINE, 2HR [...] hours. ADDITIONAL INFORMATION: None Specified [id number] [place] [address] - [address] [facility] [address] [facility] [address] [facility] [address] [facility] [address] [place] [address] [id number] - [place] [id number] [address] [facility] [address] [place] [phone] [facility] [address], [facility] [address] [facility] [address] ROS and SCREEN: Chest Pain: negative Cough: [...] ADDRESS WITH PHYSICIAN: documented in this encounter [facility] 01-16-2023 Instructions José Miguel Garnica RN - 01/16/2023 9:40 AM EST - Labs Every 2 months - Discuss night time urination with your PCP - Schedule Colonoscopy through PCP - Follow up in 1 year documented in this encounter [facility] 09-10-2022 History of Present illness [...] and no hydronephrosis. Some reflux up the [place] right ureter but good drainage of both transplant and [place] ureter to the bladder. Nephrostomy tube was [...] transplant, orthotopic (N/A, 04/12/2020); kidney transplant w/o [place] nephrectomy (N/A, 04/12/2020); and placement nephrostomy catheter [...] x 4, Normal strength. No edema. Skin: [place], warm, and dry. There are no rashes [...] and no hydronephrosis. Some reflux up the [place] right ureter but good drainage of both transplant and [place] ureter to the bladder. Nephrostomy tube was [...] MD 09/10/22 documented in this encounter [facility] 07-07-2022 History of Present illness Narrative [...] draped in simple fashion. Time-out per Dr. Yeepz. The nephrostomy tube was removed. The patient was assisted off the table and escorted to watchguard where they made a follow up. 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 Nephrostomy tube placed 05/17/22 due [...] to have transplant ureter with anastomosis to [place] right ureter. Nephrostogram without filling defects and no hydronephrosis. Some reflux up the [place] right ureter but good drainage of both transplant and [place] ureter to the bladder. Nephrostomy tube was removed without issue. Patient does have some sensation of incomplete bladder emptying and occasional sensation in his right flank. PVR today was 33cc. Will re-evaluate urinary symptoms at next appointment. --continue Flomax --RTC in one month flow flow/PVR/IPSS Patient to call with any additional questions or concerns. Ryan Yepez MD 07/07/22 documented in this encounter [facility] 06-27-2022 History of Present illness Narrative [...] transplant, orthotopic (N/A, 04/12/2020); kidney transplant w/o [place] nephrectomy (N/A, 04/12/2020); and placement nephrostomy catheter [...] x 4, Normal strength. No edema. Skin: [place], warm, and dry. There are no rashes [...] yo male with a DDRT to the [facility] in 2019. Nephrostomy tube placed 05/17 [...] bag if needed. documented in this encounter [facility] 06-27-2022 History and physical note Patient was evaluated in clinic as a nurse visit. Please refer to Rena Brewster's note. [facility] Work Phone: 06-27-2022 History and physical note Patient was evaluated in clinic as a nurse visit. Please refer to Rena Brewster's note. documented in this encounter [facility] 06-27-2022 History of Present illness Narrative TEACHING REGARDING TX NEPH COMPLETED-NEPH TUBE SITE DRY AND INTACT-CLEAR YELLOW URINE IN THE BAG-INSTRUCTED ABOUT FLUSHING, BAG CHANGING ETC. NUMEROUS QUESTIONS ASKED AND ANSWERED-VERBALIZED UNDERSTANDING documented in this encounter [facility] 06-18-2022 Note EXAMINATION: CT ABD/ [...] mass or enlargement. KIDNEYS: Marked atrophy of [place] kidneys. Transplant right pelvic kidney with percutaneous [...] authenticated by: MÓNICA JIMENEZ Date: 2022-06-18 13:53 [facility] 06-12-2022 Instructions Anayeli Christianson RN - 06/12/2022 3:21 PM EDT Do not take apart/disrupt nephrostomy tube system. Call Interventional Radiology and/or on-call transplant nurse [phone] for instruction if need to flush (clot or decreased flow). Take cipro 500mg, one tablet, twice per day for 14 days documented in this encounter [facility] 06-12-2022 History of Present illness Narrative Images from the original note were not included. 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 Merchandising Execution Associate: Anayeli Burt Date of Liver Transplant: 04/13/2020 (Kidney), 04/13/2020 (Liver) 2 year, 1 months post Liver/Kidney Transplant Primary Disease: Hypertensive Nephrosclerosis Transplant Automotive Parts Clerk: Steve Latham Primary Care physician: Zuly [...] kidney stone in renal graft at [facility]. Percutaneous Neph Tube placed Images from the original note were not included. Nursing Assessment In Clinic (see Clinic Prep Sheet for additional information) Patient is accompanied to clinic today by: self Did patient require a wheelchair or medical transport for appointment: no Did front of house manager confirm current address and insurance information [...] PREFERRED LAB AND PHARMACY: None Specified [facility] [place] [phone] - [address] [address] [facility] [address] [facility] [address] [id number] [place] [address] [address] [facility] [address] [facility] [address] [facility] [address], [place] [address] [facility] [address] ROS and SCREEN: Chest Pain: negative Cough: negative SOB: negative Abd Pain: negative Nausea: positive Vomiting: negative Diarrhea: negative Constipation: negative Dysuria: positive Edema: negative Tremors: negative Headaches: negative Wound issues: negative Pt has neph tube w clear yellow urine. States he had a small clot that he dislodged QUESTIONS OR CONCERNS TO ADDRESS WITH PHYSICIAN: I saw George Styles at the [facility] on 06/12/2022. Patient is a 52 y.o. 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 His [place] kidney disease was noted to be presumed [...] DAY SURGERY MAIN OR KIDNEY TRANSPLANT W/O [place] DEE-NI' NEPHRECTOMY N/A 04/12/2020 Laterality: N/A; Surgeon: LU [...] you have any questions. Steve Latham MD rail car mechanic Division of Nephrology [facility] documented in this encounter [facility] 06-04-2022 Instructions TATI GROVE - 06/04/2022 11:04 AM EDT Thank you for joining us for your neph tube follow up. We recommend routine exchange every 8-10 weeks. Please reach out at [phone] when it is time to set your next routine exchange. Thank you IR clinic documented in this encounter [facility] 06-04-2022 History of Present illness [...] exchange. Verbalized understanding. documented in this encounter [facility] 05-20-2022 Note Formatting of this [...] time of his discharge. Leon Cook RN [facility] 05-20-2022 Miscellaneous Notes Patient discharged. [...] provide teaching before his discharge Leon RN #[id number] Leon Cook RN Afternoon assessment completed at [...] Outcome: Ongoing Discussed with [facility] re: possible urine culture performed [...] with questions. Evan Byrd MD Urology, PGY-2 #[id number] I certify that this patient requires inpatient [...] Kallie Lorenzana RN documented in this encounter [facility] 05-20-2022 Note Formatting of this [...] discharge/transition of care. Outcome: Adequate for Discharge [facility] 05-20-2022 Note Formatting of this n ote might be different from the original. Anne Dillard MD R10 Rm 1006 Jensen George Please let's have a clear order on how the nephrostomy site dressing need to be changed when the patient goes home so we provide teaching before his discharge Leon RN #[id number] Leon Cook RN [facility] 05-20-2022 History of Present illness Narrative Images from the original note were not included. [facility]: [facility] the following [facility] prescription(s): Medication reconciliation was completed with comparison to discharge reconciliation report. The prescription(s) will be delivered to the patient's bedside on 05/20/22. Total cost is $0. Yanira Her RPh,PharmD Specialty ([place]) [phone] [facility] [phone] [facility] [phone] Ra[place] [phone] [place] [phone] Bedside Delivery ([facility]) [phone] Attending I saw George Styles at the [facility] on 05/19/2022. I saw and independently evaluated [...] Daily Progress Note Patient: George Styles, 1970, [id number] Physician: Liam Julian MD, PGY-3, Pager #[phone], [email or web address] Subjective/Interval History: No acute events overnight. Passed [...] Saldana MD Division of Hospital Medicine Pager [phone] Attending I saw George Styles at the [facility] on 05/18/2022. I saw and independently evaluated [...] Daily Progress Note Patient: George Styles, 1970, [id number] Physician: Nishant Gamez MD, PGY2, Pager #[phone], TK8service Subjective/Interval History: Nephrostomy tube placed yesterday with a lot of urine output and significant improvement in creatinine. Objective: Vitals: 05/18/22409 BP: 190/86 Pulse: 83 Resp: 18 Temp: 98.4 F (36.9 C) O2 Device: room air (05/18/22409) Flow (L/min): 3 (05/17/22 7619) Gen: NAD, well-appearing HENT: NCAT, EOMI, MMM [...] to have stablized for this to be ocean import representative. Daya ([place]) Jeff Saldana MD Division of Hospital Medicine Pager [phone] Internal Medicine Daily Progress Note Patient: George Styles, 1970, [id number] Physician: Nishant Gamez MD, PGY2, Pager #[phone], [email or web address] Subjective/Interval History: Worsening creatinine this morning with [...] Saldana MD Division of Hospital Medicine Pager [phone] Attending I saw George Styles at the [facility] on 05/17/2022. I saw and independently evaluated [...] of chart and discussion with treatment team, Presentation Team Member has not identified needs at this time. [...] follow. Introduced self and role of the bench press operator to patient. Provided emotional and spiritual support and the patient responded by sharing their experience and discussed the following: - Spirituality/Anabaptist Affiliation: As a kid attended [employer] but not a strong identity now - Family support - pt's brothers live close by Clerical Manager provided: - Supportive presence - Active listening - Validation of feelings/emotions Patient encouraged to request a bench press operator as needed. Chaplains are available in-house 24 hours a day and 7 days a week. For urgent matters in [facility], please page [phone]. If the request is not urgent, please enter a consult. Consults are responded to within 24 hours. Angie Singh Mdiv, [facility] Trans[facility] [place] [phone] Clerical Manager [facility] Clerical Manager [place] [phone] [email or web address] 22/06 [facility] Pager [phone] 22/06 Pager ,[facility], and [place] 1500 22/06 [place] Pager [phone] 05/16/22 1126 Clinical Encounter Type Visited With Patient Visit Type Introduction Pastoral Time Spent 15 min Referral Other (See Comment) (Rounding) Spiritual Assessment Spiritual Observation Spirituality helpful;Identifies as (see comment) (Jehovah'S Witness) Emotional Observation Coping well Hope Observation Hopeful and accepting Support Observation By Family Interventions Provided Active listening;Supportive presence Facilitated Verbalization of feelings;Sharing of life story;Identifying support system Explored Expectations Hand Launderer Education Hand Launderer Service Available Yes Educated Patient Outcomes Patient Outcomes Articulated purpose/meaning Plan of Care Continue Visiting PRN Internal Medicine Daily Progress Note Patient: George Styles, 1970, [id number] Physician: Nishant Gamez MD, PGY2, Pager #[phone], [id number] Subjective/Interval History: Overall feeling okay this morning. 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 [...] Supervision Transfer Assessment: Sit to Stand Transfer [place]y Level: Sit->Stand: independent Skilled Intervention/Details: Sit->Stand: x1 from EOB Stand to Sit Transfer [place]y Level: Stand->Sit: supervision Assistive Device: Stand->Sit: armed chair Skilled Rationale: Controlled descent for sitting, Verbal cues Gait/Functional Mobility: Gait Assessment Yancey Level: Gait: supervision Assistive Device: Gait: gait belt Gait Distance (feet): 200 Gait Deviations Identified: decreased grace, decreased step length, decreased stride length Gait Skilled Rationale: verbal, upright posture Skilled Intervention/Details - Gait: Pt with steady gait without LOB or complaints of SOB. Stairs: Stairs Assessment [place]y Level: Stair Negotiation: stand-by assist Assistive Device: Stair Negotiation: gait belt, left rail (ascending) Number of stairs: 9 Stairs Skilled Rationale: reciprocal pattern Outcome Score(s): CURRENT [facility] Basic Mobility Inpatient Short Form Turning over in bed: 4 - No Assistance Sitting/standing from chair: 4 - No Assistance Moving from lying on back to sittin - No Assistance Moving to and from bed to chair: 4 - No Assistance Walk in hospital room: 3 - A Little Assistance Climbing 3-5 steps with a railin - A Little Assistance CURRENT [facility] Mobility Raw Score: 22 CURRENT [facility] Mobility Functional Limitation/Modifier: 20.91% Currently [...] reported no concerns with discharging home with havana support. 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 IADL History IADLs: independent Primary Language: Burkinan Home Management Skills: independent Meal Prep Responsibility: [...] Assessment: Transfer Assessment: Sit to Stand Transfer Yancey Level: Sit->Stand: independent Skilled Rationale: Cues for increased safety Skilled Intervention/Details: Sit->Stand: x1 EOB Stand to Sit Transfer Yancey Level: Stand->Sit: supervision Assistive Device: Stand->Sit: gait belt, armed chair Skilled Rationale: Verbal cues, Controlled descent for sitting, Cues for increased safety Skilled Intervention/Details: Stand->Sit: cues for hand placement and controlled descent Functional Mobility: Functional Mobility Yancey Level: Functional Mobility/Gait: stand-by assist Assistive Device: Functional Mobility/Gait: gait belt Functional Mobility Distance: Distance needed for limited community mobility Functional Mobility Deficits: Activity tolerance, Balance, Decreased step length, Generalized weakness Functional Mobility Skilled Rationale: Verbal cues, Facilitate postural control Skilled Intervention/Details - Functional Mobility/Gait: cues for upright posture Outcome Score(s): CURRENT [facility] Daily Activity Inpatient Short Form Putting on/Taking Off Lower Body Clothin - A Little Assistance Bathin - A Little Assistance Toiletin - A Little Assistance Putting on/Taking Off Upper Body Clothin - No Assistance Groomin - No Assistance Eatin - No Assistance CURRENT [facility] Activity Raw Score: 21 CURRENT [facility] Activity Functional Limitation/Modifier: 32.79% Currently [...] DAY SURGERY MAIN OR KIDNEY TRANSPLANT W/O [place] DEE-NI' NEPHRECTOMY N/A 04/12/2020 Laterality: N/A; Surgeon: LU [...] by: Mel Norman OT, OTR/L License #: [id number] pager # [phone] 05/20/2022 Upon discontinuation of Acute Care Occupational Therapy Services or patient discharge from the hospital this note represents the current Occupational Therapy Discharge Summary. documented in this encounter [facility] 05-20-2022 Hospital course Narrative Discharge Summary [...] during his recent hospital stay at [facility]. As you may know, George Styles, [...] Saldana MD Division of Hospital Medicine p: [phone] f: [phone] CONSULTS DURING ADMISSION: IP CONSULT TO SURGERY - UROLOGY IP CONSULT TO NEPHROLOGY - TRANSPLANT (MEDICINE) IP CONSULT TO INTERVENTIONAL RADIOLOGY IP CONSULT TO PHYSICAL THERAPY IP CONSULT TO OCCUPATIONAL THERAPY IP CONSULT TO PHARMACY BEDSIDE DISCHARGE MED DELIVERY IMAGING / PROCEDURES / RESULTS: Should you require further information or copies of results or reports please contact Medical Information Management @ [phone] LABS AT TIME OF DISCHARGE: Lab Results [...] AT DISCHARGE: Zuly Bruno [address] [facility] [place] [address] MEDICATIONS: Discharge Orders CT ABDOMEN/PELVIS WITHOUT CONTRAST [...] CAPS Generic drug: docusate Follow-up: Zuly Bruno, CLIENT DEVELOPMENT DIRECTOR [address] [facility] [phone] Schedule an appointment as soon as possible for a visit Follow-up appointment with your, primary care physician within 7-10 days, after discharge. [address] [facility] [phone] Follow up The department of urology will call you with a follow up appointment. LU Ovalle [address] 11th Floor [facility] [phone] Follow up Please make a follow up appointment with Dr. Latham's office. Upcoming Appointments (up to five)-Some appointments for Medical Center outpatient clinics or diagnostic testing locations are not displayed below Provider Department Dept Phone 06/04/2022 10:40 AM IR CLINIC [place], [facility] Interventional Radiology Clinic [phone] 06/27/2022 1:[address] [facility] Department of Radiology Arrive at: Arrive to First Floor Registration Desk [phone] 06/27/2022 2:40 PM Ryan Yepez [facility] [place] Arrive at: Arrive to 2nd Floor, Registration [address] 10/31/2022 1:00 PM Setve Latham [facility] Transplant [facility] [phone] 01/16/2023 9:40 AM TRANSPLANT HEPATOLOGY , [facility] Transplant [facility] [phone] Associated attestation - Daya Saldana MD - [...] Saldana MD Division of Hospital Medicine Pager [phone] documented in this encounter [facility] 05-20-2022 Hospital Discharge instructions Giulia Cavazos [...] be changed by Interventional Radiology. Please call [phone] to schedule this appointment and with any questions or concerns you may have regarding the nephrostomy tube. If you have questions or concerns, please call Interventional Radiology at SOMEONE FROM INTERVENTIONAL RADIOLOGY WILL CALL YOU FOR A FOLLOW UP IN THE IR CLINIC Giulia Cavazos RN Nurse Coordinator Interventional Radiology Interventional Radiology Outpatient scheduling documented in this encounter [facility] 05-19-2022 Note Formatting of this [...] Goal: Interdisciplinary Rounds/Family Conf Outcome: Ongoing [facility] 05-19-2022 Note Formatting of this n ote might be different from the original. Discussed with [facility] re: possible urine culture performed at their facility. However, based on urinalysis completed at that time, which was only notable for hematuria, culture was not performed and sample no longer feasible for culture. Liam Julian MD Internal Medicine/Pediatrics, PGY-3 [facility] 05-18-2022 Note Formatting of this n ote might be different from the original. 2002: IHIS message sent to Dr Justyn Wen, regarding patient passing a small kidney stone, about the size of pea. MD notified. Stone left in strainer in pt bathroom. 0500: IHIS message sent to Dr Justyn Wen, regarding pt BP 174/77. [facility] 05-18-2022 Note Formatting of this [...] outcomes by discharge/transition of care. Outcome: Ongoing [facility] 05-18-2022 Note Formatting of this [...] becomes hyponatremic, NS should instead be used. [facility] Work Phone: 05-18-2022 Note Formatting of this n ote might be different from the original. IHIS chat sent to Dr Tray Quintana, regarding pt BP 190/86. Pt complaining of pain at site of neph tube. PRN pain medication given per order parameters. Pt denies any other symptoms at this time. MD notified and aware. [facility] 05-17-2022 Note Formatting of this n ote might be different from the original. At 0900, I rounded with Dr. Gamez and Dr. Saldana. At that time I checked Mr. Styles's vital signs. His pulse oximeter was low and he was tachypneic. Verbal order at bedside to put nasal cannula on starting at 2liters oxygen and to provide incentive spirometer. [facility] 05-17-2022 Note Formatting of this n ote might be different from the original. Interventional Radiology procedure completed with IR Attending Dr. Heart / Dr. Le of percutaneous right nephrostomy tube placement transplant kidney 10.2 Fr Griffin acosta Pt tolerated procedure with moderate sedation local numbing agent . Transported to inpatient after phase I recovery. Post procedure orders in place. [facility] 05-16-2022 Note Formatting of this n ote might be different from the original. At 1530, I text chavad Kaitlynn Gomez MD that patient has only had 25ml urine output in matias this afternoon. [facility] 05-16-2022 Note Formatting of this [...] with questions. Evan Byrd MD Urology, PGY-2 #[id number] [facility] Work Phone: 05-16-2022 Note Formatting of this n ote might be different from the original. I certify that this patient requires inpatient services at this time. I anticipate the expected length of stay will include at least two midnights. Inpatient services are due to the following medical concerns Obstructive kidney stone. Plans for post hospitalization care will be discharge to home. [facility] 05-16-2022 Consult note Associated Order (s): IP CONSULT TO NEPHROLOGY - TRANSPLANT (MEDICINE) I saw George Styles at the [facility] on 05/16/2022. Reason for Consultation: kidney stone [...] he was given flomax and sent home. [place] better but noticed more pain and decreased [...] best assessment and recommendations. Maxi Pringle MD [facility] Work Phone: 05-16-2022 Consult note Associated Order (s): IP CONSULT TO NEPHROLOGY - TRANSPLANT (MEDICINE) I saw George Styles at the [facility] on 05/16/2022. Reason for Consultation: kidney stone [...] he was given flomax and sent home. [place] better but noticed more pain and decreased [...] states he went to his local ED [facility] and he was put on Flomax and he did improve. Pt states last night he was unable to void with severe right sided abd pain. Pt states nausea and no vomiting or fevers. Pt states he went back to [facility] ED at 0100 and they placed a [...] orthotopic (N/A, 04/12/2020); and kidney transplant w/o [place] nephrectomy (N/A, 04/12/2020). 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 The [place] kidneys are progressively atrophic bilaterally compared to [...] of 06/14/2020 are no longer present. The [place] distal right ureter is decompressed beyond this [...] with surgical history for renal graft and [place] right urinary drainage, as a discrete ureteroneocystostomy is not identified, and the graft may be draining via a ureteroureterostomy. Urology consultation recommended. 3. The [place] kidneys are bilaterally atrophic, with right renal sinus calcifications consistent with nonobstructing right [place] renal calculi up to 6 mm. Normal [...] PGY-3, Department of Urologic Surgery Pager #: [phone] Associated attestation - Ryan Yepez MD - [...] continue flomax documented in this encounter [facility] 05-16-2022 Note Formatting of this n [...] supported Trust Relationship/Rapport: care explained [facility] Note Formatting of this n ote might be different from the original. On admission to R10, a dual RN initial assessment of skin condition was performed by Kallie Lorenzana RN and Sheri Arguelles RN. Skin Assessment: WDL Jose Score: 20 LDA Added:N Kallie Lorenzana RN [facility] 05-15-2022 Emergency department Note Report given to Kallie RN at [facility] 05-15-2022 Emergency department Note Report given to Kallie RN at [facility] Bladder scan with Dr Villatoro at bedside, [...] diagnosed Thursday and was sent home with [facility]. He went back to that [...] agree with the plan of care. Gian Villatroo MD 05/15/222003 Dr Schneider made aware of [...] DAY SURGERY MAIN OR KIDNEY TRANSPLANT W/O [place] DEE-NI' NEPHRECTOMY N/A 04/12/2020 Laterality: N/A; Surgeon: LU [...] 05/15/222030 Pt arrives from [facility] with kidney stones. Pt states he had right lower abd pain and right flank pain with blood in his urine since Thursday. Pt states he went to his local ED [facility] and he was put on Flomax and he did improve. Pt states last night he was unable to void with severe right sided abd pain. Pt states nausea and no vomiting or fevers. Pt states he went back to [facility] ED at 0100 and they placed a matias and CT scan completed and multiple kidney stones noted. [facility] and kidney transplant in 03/2020. documented in this encounter [facility] 05-15-2022 History and physical note Internal Medicine Admission History & Physical Patient: George Styles, 1970, [id number] Physician: Evan Bennett MD, PGY1, Pager #[phone], GM 4 service Date of face to [...] DAY SURGERY MAIN OR KIDNEY TRANSPLANT W/O [place] DEE-NI' NEPHRECTOMY N/A 04/12/2020 Laterality: N/A; Surgeon: LU [...] erythema: Skin: No jaundice or rash Neuro: dental hygienist 3-7, 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 Strength grossly [...] dilation of the calyces may represent narrowing/partial [id number] ofthe ureter and mild hydronephrosis or sequela [...] Fred Prince MD Division of Hospital Medicine [phone] [facility] Work Phone: 05-15-2022 History and physical note Internal Medicine Admission History & Physical Patient: George Styles, 1970, [id number] Physician: Evan Bennett MD, PGY1, Pager #[phone], GM 4 service Date of face to [...] DAY SURGERY MAIN OR KIDNEY TRANSPLANT W/O [place] DEE-NI' NEPHRECTOMY N/A 04/12/2020 Laterality: N/A; Surgeon: LU [...] erythema: Skin: No jaundice or rash Neuro: dental hygienist 3-7, 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 Strength grossly [...] dilation of the calyces may represent narrowing/partial [id number] ofthe ureter and mild hydronephrosis or sequela [...] Medicine [phone] documented in this encounter [facility] 05-15-2022 Emergency department Note Bladder scan with Dr Villatoro at bedside, 14ml noted [facility] 05-15-2022 Consult note Associated Order (s): [...] states he went to his local ED [facility] and he was put on Flomax and he did improve. Pt states last night he was unable to void with severe right sided abd pain. Pt states nausea and no vomiting or fevers. Pt states he went back to [facility] ED at 0100 and they placed a [...] orthotopic (N/A, 04/12/2020); and kidney transplant w/o [place] nephrectomy (N/A, 04/12/2020). 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 The [place] kidneys are progressively atrophic bilaterally compared to [...] of 06/14/2020 are no longer present. The [place] distal right ureter is decompressed beyond this [...] with surgical history for renal graft and [place] right urinary drainage, as a discrete ureteroneocystostomy is not identified, and the graft may be draining via a ureteroureterostomy. Urology consultation recommended. 3. The [place] kidneys are bilaterally atrophic, with right renal sinus calcifications consistent with nonobstructing right [place] renal calculi up to 6 mm. Normal [...] PGY-3, Department of Urologic Surgery Pager #: [phone] Associated attestation - Ryan Yepez MD - [...] future before surgical intervention --may continue flomax [facility] Work Phone: 05-15-2022 Emergency department Note Advised Dr Schneider concerning no urine output via matias catheter. [facility] 05-15-2022 Physician Emergency department Note ED Attending George Styles has a past medical history of Acute renal failure, CAD (coronary artery disease), Cirrhosis, Dialysis patient, End stage renal disease (06/01/2018), Essential hypertension, benign, Hepatic encephalopathy, History of blood transfusion, and Liver cirrhosis. Presents with a chief complaint of kidney stone and diagnosed Thursday and was sent home with [facility]. He went back to that [...] plan of care. Gian Villatoro MD 05/15/222003 [facility] Work Phone: 05-15-[address] Schneider made aware of only 30 ml urine via matias since arrival to room. [facility] 05-15-2022 Physician Emergency department [...] DAY SURGERY MAIN OR KIDNEY TRANSPLANT W/O [place] DEE-NI' NEPHRECTOMY N/A 04/12/2020 Laterality: N/A; Surgeon: LU [...] incorrections. Matt Schneider MD Resident 05/15/222030 [facility] Work Phone: 05-15-2022 Emergency department Note Pt arrives from [facility] with kidney stones. Pt states he had right lower abd pain and right flank pain with blood in his urine since Thursday. Pt states he went to his local ED [facility] and he was put on Flomax and he did improve. Pt states last night he was unable to void with severe right sided abd pain. Pt states nausea and no vomiting or fevers. Pt states he went back to [facility] ED at 0100 and they placed a matias and CT scan completed and multiple kidney stones noted. [facility] as he had liver and kidney transplant in 03/2020. [facility] 03-14-2022 History of Present illness [...] Required: No Mailing/Pickup Date: 03/17/2022 Shipping Address: [address] [place] [address] 179 Contact Info: Specialty ([place]) [phone] [facility] [phone] [facility] [phone] [place] [phone] Bedside Delivery ([facility]) [phone] documented in this encounter [facility] 06-14-2021 History of Present illness [...] Goal Progress: Satisfactory Contact Info: Specialty ([place]) [phone] Jakob [phone] [facility] [phone] Ra[place]em [phone] Bedside Delivery ([facility]) [phone] [facility]: Call Information: Date [...] Location: Home Signature Required: Yes Shipping Address: [address] [place] [id number] Contact Info: Specialty ([place]) [phone] Jakob [phone] [facility] [phone] Raheem [phone] Bedside Delivery ([facility]) [phone] documented [facility] encounter [facility] Diagnosis FAYE (acute kidney injury)- Primary Acute kidney failure, unspecified Hydronephrosis due to obstruction of ureteral orifice Hydronephrosis due to obstruction of ureteral orifice FAYE (acute kidney injury) Acute kidney failure, unspecified [facility] Diagnosis Follow-up exam- Primary Unspecified follow-up examination [facility] Diagnosis Immunosuppressed status- Primary Unspecified disorder of immune mechanism Kidney replaced by transplant Liver replaced by transplant Abnormal blood chemistry Other abnormal blood chemistry High risk medication use Encounter for long-term (current) use of other medications Aftercare following organ transplant Liver transplant recipient [facility] Diagnosis Attention to nephrostomy- Primary [facility] Diagnosis Other hydronephrosis- Primary [facility] Diagnosis FAYE (acute kidney injury) Acute kidney failure, unspecified [facility] Diagnosis Other hydronephrosis- Primary -donor kidney transplant recipient Kidney replaced by transplant [facility] Diagnosis Other hydronephrosis [facility] Diagnosis 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) Encounter for screening for malignant neoplasm of prostate Special screening for malignant neoplasm of prostate [facility] Diagnosis Abnormal blood chemistry- Primary Other abnormal blood chemistry Liver transplant recipient Kidney replaced by transplant Immunosuppressed status Unspecified disorder of immune mechanism Aftercare following organ transplant [facility] Kidney replaced by transplant- Primary [facility] Diagnosis Immunosuppressed status- Primary Unspecified disorder of immune mechanism Kidney replaced by transplant Aftercare following organ transplant High risk medication use Encounter for long-term (current) use of other medications Other general symptoms and signs Abnormal blood chemistry Other abnormal blood chemistry Hypertension secondary to other renal disorders [facility] Diagnosis Histoplasmosis- Primary Histoplasmosis, unspecified [...] Fever, unspecified [facility] Diagnosis Bilateral lower extremity edema- Primary 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) Atherosclerosis 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) Atherosclerosis of aorta Obesity (BMI 30-39.9) DARLENE (obstructive sleep apnea) Obstructive sleep apnea (adult) (pediatric) Tremor Abnormal involuntary movements Immunocompromised (CMS/HCC) Unspecified immunity deficiency Primary hypertension (CMS/HCC) Unspecified essential hypertension Shortness of breath documented in [facility] encounter [facility]* Diagnosis Pleural effusion on right- [...] specified pre-operative examination [facility] Diagnosis Heart failure, diastolic, acute- Primary Acute diastolic heart failure [facility] Liver lesion- Primary Other specified disorders of liver Liver transplant recipient High risk medication use Encounter for long-term (current) use of other medications Therapeutic drug monitoring Encounter for therapeutic drug monitoring Immunocompromised Unspecified immunity deficiency [facility] Kidney replaced by transplant- Primary [facility] Consultation (Routine) - New Request Specialty Diagnoses / Procedures Referred By Deni edwards Referred To Contact Interventional Radiology Diagnoses Hydronephrosis due to obstruction of ureteral orifice Daya Saldana MD [address] [place] [address] Referral ID Status Reason Start Date Expiration Date V isits Requested Visits Authorized [id number] New Request 05/18/2022 06/12/2023 1 1 * Radiology (Emergency) - New Request Specialty Diagnoses / Procedures Referred By Contac t Referred To Contact Procedures US RENAL TRANSPLANT SCAN Daya Saldana MD [address] [place] [address] Referral ID Status Reason Start Date Expiration Date V isits Requested Visits Authorized [id number] New Request 05/16/2022 06/10/2023 1 1 * Consultation (Routine) - New Request Specialty Diagnoses / Procedures Referred By Contac t Referred To Contact Urology Diagnoses FAYE (acute kidney injury) Ryan Yepez MD [address] [place] [address] [address] [place] [address] Referral ID Status Reason Start Date Expiration Date V isits Requested Visits Authorized [id number] New Request 05/16/2022 06/10/2023 1 1 * MRI/CAT Scan (Routine) - New Request Specialty Diagnoses / Procedures Referred By Contac t Referred To Contact Diagnoses FAYE (acute kidney injury) Procedures CT ABDOMEN/PELVIS WITHOUT CONTRAST CHG CT SCAN,ABDOMENT AND PELVIS,W/O CONTRAST Ryan Yepez MD [address] [place] [address] [address] [place] [address] Referral ID Status Reason Start Date Expiration Date V isits Requested Visits Authorized [id number] New Request 05/16/2022 06/10/2023 1 1 * (Routine) - Pending Review Specialty Diagnoses / Procedures Referred By Contac t Referred To Contact Procedures PLATELET MONITORING PER PROTOCOL Daya Saldana MD [address] [place] [address] Referral ID Status Reason Start Date Expiration Date V isits Requested Visits Authorized [id number] Pending Review 05/15/2022 06/09/2023 1 1 * (Routine) - Pending Review Specialty Diagnoses / Procedures Referred By Contac t Referred To Contact Procedures DVT/VTE RISK ASSESSMENT Daya Saldana MD [address] [place] [address] Referral ID Status Reason Start Date Expiration Date V isits Requested Visits Authorized [id number] Pending Review 05/15/2022 06/09/2023 1 1 * (Routine) Specialty Diagnoses / Procedures Referred By Contac t Referred To Contact Evan Bennett MD [address] [place] [address] Referral ID Status Reason Start Date Expiration Date Visits Re quested Visits Authorized * (Routine) Specialty Diagnoses / Procedures Referred By Contac t Referred To Contact Evan Bennett MD [address] [place] [address] Referral ID Status Reason Start Date Expiration Date Visits Re quested Visits Authorized [facility] for [facility] (narrative)* Consultation (Routine) - New Request Specialty Diagnoses / Procedures Referred By Contac t Referred To Contact Sleep Medicine Diagnoses Kevin Conroy MD [address] [place] [address] Referral ID Status Reason Start Date Expiration Date V isits Requested Visits Authorized [id number] New Request 09/10/2023 10/04/2024 1 1 * MRI/CAT Scan (Routine) - New Request Specialty Diagnoses / Procedures Referred By Contac t Referred To Contact Diagnoses Histoplasmosis Procedures CT CHEST WITHOUT CONTRAST CHG DIAGNOSTIC COMPUTED TOMOGRAPHY THORAX W/O CNTRST Kevin Sage MD [address], [place] [address] Referral ID Status Reason Start Date Expiration Date V isits Requested Visits Authorized [id number] New Request 09/10/2023 10/04/2024 1 1 * Radiology (Routine) - New Request Specialty Diagnoses / Procedures Referred By Contac t Referred To Contact Procedures US RENAL TRANSPLANT SCAN Steve Latham MBBS [address] [place] [phone] Referral ID Status Reason Start Date Expiration Date V isits Requested Visits Authorized [id number] New Request 08/29/2023 09/22/2024 1 1 * (Routine) - New Request Specialty Diagnoses / Procedures Referred By Contac t Referred To Contact Procedures PLATELET MONITORING PER PROTOCOL Steve Latham MBBS [address], [place] [address] Referral ID Status Reason Start Date Expiration Date V isits Requested Visits Authorized [id number] New Request 08/28/2023 09/21/2024 1 1 * (Routine) - New Request Specialty Diagnoses / Procedures Referred By Contac t Referred To Contact Procedures DVT/VTE RISK ASSESSMENT Steve Latham MBBS [address], [place] [address] Referral ID Status Reason Start Date Expiration Date V isits Requested Visits Authorized [id number] New Request 08/28/2023 09/21/2024 1 1 [facility] Instructions * Patient Instructions - Christin Elizabeth APRN-CNP - 10/19/2018 9:21 AM EST You should take an extra dose of the lactulose as needed so that you are having 3-4 bowel movementsdaily. You should start the chemical dependency counseling as soon as possible. If you have questions, call the transplant aids social worker Fidelina Pierson. in this encounter* Patient Instructions - Sophie Cary, SAMI - 10/12/2018 11:09 AM EST You have been seen in the pre-transplant evaluation clinic by Dr. Restrepo and Sophie Cary. Sophie Cary is your pre-blending coordinator she can be reached at [phone] at any time for questions during the pre-transplant process. Your evaluation is complete pendin. Abdominal ultrasound. 2. 6 minute walk test. 3. Cardiology evaluation. Additionally, your creative director will recommend testing to screen for coronary artery disease. This will be scheduled for you after your cardiology visit. 4. Your coordinator will be requesting record from your last dental visit, colonoscopy and EGD. 5. Please work to complete social work recommendations. Your aids social worker will be contacting you to follow up on your progress. 6. You have also been referred for a kidney transplant. An appointment will be scheduled for you sari evaluated in the kidney transplant clinic after you have satisfied requirements dictated by [employer]. Once your testing is complete, we [...] ___ Other Name MRN * Christin Elizabeth, COTTON MACHINE OPERATOR-CLIENT DEVELOPMENT DIRECTOR - 10/19/2018 9:00 AM EST Formatting of this note may be different from the original. History of Present Illness: Chief Complaint Patient presents with Follow-up Cirrhosis George Styles is a 48 y.o. male who presents to the [facility] today regarding his diagnosis/chief complaint(s) of Cirrhosis secondary to ETOH, with ESRD follows with Dr. Orr. Currently undergoing evaluation for liver/kidney transplant. Has been seen in transplant clinic for eval. Still undergoing pre testing. Diagnosed in April 2018. Last drink was immediately prior to hospital admission in [place] for ACLF. Hospital course notable for ARF [...] (human immunodeficiency virus infection); Hyperlipidemia; Hyperthyroidism; Hypothyroidism; VA (myocardial infarction); Migraine; DARLENE (obstructive sleep apnea); [...] 3. FU 12 weeks. in this encounter* SobieskiRafiaFidelinaCRIS - 10/12/2018 10:00 AM EST Formatting of this note may be different from the original. Transplant Recipient Psychosocial Evaluation Demographics: Patient is a 48 y.o., White, Single, male, who presented for a liver and kidney transplant evaluation. Pt was AOx3. Transplant Emergency Registrar role/function was explained and reviewed. The patient was informed that the results of this assessment will be shared with the referring provider and the transplant team. The patient verbalized understanding of this information. The [facility] psychosocial assessment consent form has been explained to patient and has been signed. Pt is completing this evaluation with brother (David) in the Outpatient setting. SWK educated pt on the benefits of completing/filing advanced directives and resources were offered. Pt identifies with [employer]TER [employer] jew. Pt confirms being a [place] Citizen. Pt.'s primary language is Burkinan. Pt confirms the ability to read,write, and understand Burkinan. Pt denies potential donors. Donor cards and [...] has valid license, does not regularly drive (CLIENT DEVELOPMENT DIRECTOR recommends that he not to drive). He [...] organ related disease etoh cirrohosis April in [facility] for thirty days. Pt [...] as well as referred him to pre blending coordinator. Pt and support demonstrated moderate understanding [...] Patient's brother David is a self employed drywall contractor. Additional support includes his other brother Tyshawn and his Mary live fifteen minutes away. Of note Mary is a ux consultant for a [employer] is available to assist apartment maintenance. He confirms being comfortable asking for help. [...] in 2010, he was employed by the [employer]. He has access to SSDI payment (SSDI starts in November) in regards to financial means pre/ post-transplant. Pt confirms (meeting bills currently, ) being able to meet daily needs. Patient's brother asking for additional information on community resources, food stamps and He[employer]. Refer him to pt.'s dialysis center and the [facility]. Hereports access to Medicaid. Pt. [...] treatment after a DUI charge [facility] in [place], court ordered treatment in 2001 and in [...] by patient from his primary medical provider- CLIENT DEVELOPMENT DIRECTOR patient was noted as attending an alcohol [...] new visit Date of service: 10/12/2018 -Referring melter supervisor electric arc furnace for today's consult: -Primary Care Provider: Zuly [...] EST Timed up and go 9.9 seconds Addictions Counselor Left 52.8 pounds Right 44.9 pounds Waist circ 38.5 inches * Sophie Cary, RN - 10/12/2018 10:00 AM EST Formatting of this note may be different from the original. Patient George Styles ([id number]), accompanied by his brother, was seen on [...] any further questions. Sophie GUERINN, RN Liver Merchandising Execution Associate Etiology: ETOH HCC: No ETOH: Yes Last [...] RUQ/LIVER/GB Yovani Orr MD [address] [address] Status Reason Specialty Diagnoses / Procedures Referred By Contact Referred To Contact New Request Diagnoses Cirrhosis of liver with ascites, unspecified hepatic cirrhosis type Procedures US ABDOMEN RUQ/LIVER/GB Yovani Orr MD [address] [address] Specialty Diagnoses / Procedures Referred By Contac t Referred To Contact Diagnoses FAYE (acute kidney injury) Procedures CT ABDOMEN/PELVIS WITHOUT CONTRAST CHG CT SCAN,ABDOMENT AND PELVIS,W/O CONTRAST Central Scheduling [address] [place] [address] Referral ID Status Reason Start Date Expiration Date V isits Requested Visits Authorized [id number] Pending Review 05/16/2022 06/10/2023 1 1 Specialty Diagnoses / Procedures Referred By Contac t Referred To Contact Diagnoses Other hydronephrosis Procedures FLUORO IMAGING FOR UROLOGY Ryan Yepez MD [address] [facility] [address] [place] [address] Referral ID Status Reason Start Date Expiration Date V isits Requested Visits Authorized [id number] New Request 07/07/2022 08/01/2023 1 1 Specialty Diagnoses / Procedures Referred By Contac t Referred To Contact Procedures DIRECT ADMIT REQUEST Steve Latham MBBS [address] [place] [address] Referral ID Status Reason Start Date Expiration Date V isits Requested Visits Authorized [id number] New Request 08/28/2023 09/21/2024 1 1 Specialty Diagnoses / Procedures Referred By Contac t Referred To Contact Radiology Diagnoses DARLENE (obstructive sleep apnea) Primary hypertension (CMS/HCC) Bilateral lower extremity edema Shortness of breath Procedures Echocardiogram 2D complete Zuly Bruno NP [address] [place] [address] Referral ID Status Reason Start Date Expiration Date Visits Requested Visits Authorized [id number] Incomplete Perform Procedure 01/06/2024 07/04/2024 1 1 Specialty Diagnoses / Procedures Referred By Contac t Referred To Contact Procedures US IMAGING REGIONAL ANESTHESIA Kehinde Gutierrez MD [address] [place] [address] Referral ID Status Reason Start Date Expiration Date V isits Requested Visits Authorized [id number] New Request 01/22/2024 02/15/2025 1 1 Specialty Diagnoses / Procedures Referred By Contac t Referred To Contact Cardiovascular Medicine Diagnoses Heart failure, diastolic, acute Kelvin Pacheco MD, MBBS [address] [place] [address] Referral ID Status Reason Start Date Expiration Date V isits Requested Visits Authorized [id number] New Request 01/20/2024 02/13/2025 1 1 Specialty Diagnoses / Procedures Referred By Contac t Referred To Contact Procedures US ABDOMEN LIVER DOPPLER US ABDOMEN LIVER TRANSPLANT DOPPLER Timothy Joseph MD [address] [facility] [address] [place] [address] Referral ID Status Reason Start Date Expiration Date V isits Requested Visits Authorized [id number] New Request 01/16/2024 02/09/2025 1 1 Specialty Diagnoses / Procedures Referred By Contac t Referred To Contact Procedures DVT/VTE RISK ASSESSMENT Kelvin Pacheco MD, MBBS [address] [place], [place] [address] Referral ID Status Reason Start Date Expiration Date V isits Requested Visits Authorized [id number] New Request 01/16/2024 02/09/2025 1 1 Specialty Diagnoses / Procedures Referred By Contac t Referred To Contact Procedures PLATELET MONITORING PER PROTOCOL Kelvin Pacheco MD, MBBS [address] [place] [address] Referral ID Status Reason Start Date Expiration Date V isits Requested Visits Authorized [id number] New Request 01/16/2024 02/09/2025 1 1 Referral ID Status Reason Start Date Expiration Date V isits Requested Visits Authorized [id number] New Request 01/16/2024 02/09/2025 1 1 Specialty Diagnoses / Procedures Referred By Contac t Referred To Contact Procedures ECG Kelvin Pacheco MD, MBBS [address] [place] [address] Referral ID Status Reason Start Date Expiration Date V isits Requested Visits Authorized [id number] New Request 01/16/2024 02/09/2025 1 1 Specialty Diagnoses / Procedures Referred By Contac t Referred To Contact Diagnoses Liver lesion Procedures MRI ABDOMEN WITH AND WITHOUT CONTRAST CHG MRI ABDOMEN W/O & W/CONTRAST MATERIAL Daisha Max, DO [address] [place] [address] Referral ID Status Reason Start Date Expiration Date V isits Requested Visits Authorized [id number] New Request 06/17/2024 07/12/2025 1 1 Advance Directives Documents on File Type Date Recorded Patient Wet Process Head Miller Expl anation Advance Directives and Living Will Power of Rewards Consultant Latest Code Status on File Code [...] Yovani Orr MD [address] [address] Status Reason Specialty Diagnoses / Procedures Referre d By Contact Referred To Contact Denied Diagnoses Alcoholic cirrhosis, unspecified whether ascites present Pre-transplant evaluation for liver transplant Procedures MRI ABDOMEN WITH CONTRAST NC MRI, ABDOMEN W/CONTRAST Yovani Orr MD [address] [address] Reason Comments Liver Recipient Evaluation Status Reason Specialty Diagnoses / Procedures Referred By Contact Referred To Contact New Request Transplant / Transplant Surgery Procedures PRE NEW PATIENT Yovani Orr MD [address] [address] Alfredito Restrepo MD [address] [place] [address] Reason Comments Reschedule Reason Comments Outside Medical Records Request Reason Comments Social Work Follow-up Reason Comments Kidney Stone Specialty Diagnoses / Procedures Referred By Contac t Referred To Contact Diagnoses Obstructing kidney stone, s/p kidney transplant 2019 Daya Saldana MD [address] [place] [address] [facility] [address] [place] [address] Referral ID Status Reason Start Date Expiration Date Visits Re quested Visits Authorized [id number] 1 1 Reason Comments Follow-up Reason Comments Kidney Recipient Follow-up Liver Recipient Follow-up Reason Comments Consult Reason Comments New Patient Hospital follow up Specialty Diagnoses / Procedures Referred By Contac t Referred To Contact Urology Diagnoses hosp fu with [address] prior Procedures NEW TO DOC/RET PATIENT Zuly Bruno CNP [address] [place] [address] Ryan Yepez MD [address] [facility] [address] [place] [address] Referral ID Status Reason Start Date Expiration Date Visits Re quested Visits Authorized [id number] Closed 06/27/2022 07/22/2023 1 1 Specialty Diagnoses / Procedures Referred By Contac t Referred To Contact Diagnoses FAYE (acute kidney injury) Procedures CT ABDOMEN/PELVIS WITHOUT CONTRAST CHG CT SCAN,ABDOMENT AND PELVIS,W/O CONTRAST Central Scheduling [address] [place] [address] Referral ID Status Reason Start Date Expiration Date V isits Requested Visits Authorized [id number] Pending Review 05/16/2022 06/10/2023 1 1 Reason Comments Follow-up Specialty Diagnoses / Procedures Referred By Contac t Referred To Contact Urology Diagnoses 1 week fu post NT clamp Procedures RETURN PATIENT Zuly Bruno CNP [address] [place] [address] Ryan Yepez MD [address] [facility] [address] [place] [address] Referral ID Status Reason Start Date Expiration Date Visits Requested Visits Authorized [id number] Authorized - 07/07/2022 08/01/2023 2 2 Specialty Diagnoses / Procedures Referred By Contac t Referred To Contact Diagnoses Other hydronephrosis Procedures FLUORO IMAGING FOR UROLOGY Ryan Yepez MD [address] [facility] [address] [place] [address] Referral ID Status Reason Start Date Expiration Date V isits Requested Visits Authorized [id number] New Request 07/07/2022 08/01/2023 1 1 Specialty Diagnoses / Procedures Referred By Contac t Referred To Contact Urology Diagnoses 1 week fu post NT clamp Procedures RETURN PATIENT Zuly Bruno, ROB [address] [place] [address] Ryan Yepez MD [address] [place] [address] [address] [place] [address] Referral ID Status Reason Start Date Expiration Date Visits Re quested Visits Authorized [id number] Closed 07/07/2022 08/01/2023 2 2 Reason Comments Liver Recipient Follow-up Reason Comments Kidney Recipient Follow-up Reason Comments Kidney Recipient Follow-up Specialty Diagnoses / Procedures Referred By Contac t Referred To Contact Diagnoses Kidney replaced by transplant Steve Latham MBBS [address] [place] [address] [facility] [address] [place] [address] Referral ID Status Reason Start Date Expiration Date Visits Re quested Visits Authorized [id number] 1 1 Specialty Diagnoses / Procedures Referred By Contac t Referred To Contact Diagnoses Pleural effusion on right PNEUMONIA- HX LIVER AND KIDNEY TRANSPLANT Kevin Sage MD [address] [place] [address] [facility] [address] [place] [address] Referral ID Status Reason Start Date Expiration Date Visits Re quested Visits Authorized [id number] 1 1 Reason Comments New Patient Specialty Diagnoses / Procedures Referred By Contdaniel t Referred To Contact Cardiovascular Medicine Diagnoses Heart failure, diastolic, acute Kelvin Pacheco MD, MBBS [address] [place] [address] Referral ID Status Reason Start Date Expiration Date Visits Requested Visits Authorized [id number] Authorized - 01/20/2024 02/13/2025 5 5 Reason Comments Liver Recipient Follow-up (unrecognized sect ion and content) No Status Records FoundNo Status Records FoundNo Status Records FoundNo Status Records FoundNo Status Records FoundNo Status Records Found INFORMATION SOURCE (unrecogn ized section and content) DATE CREATED AUTHOR 01/07/2020 [facility] DATE CREATED AUTHOR AUTHOR'S ORGANIZ ATION 01/27/2021 [facility] DATE CREATED AUTHOR AUTHOR'S ORGANIZ ATION 05/11/2023 [facility] DATE CREATED AUTHOR AUTHOR'S ORGANIZ ATION 04/19/2024 [facility] DATE CREATED AUTHOR AUTHOR'S ORGANIZ ATION 06/03/2024 [facility] DATE CREATED AUTHOR AUTHOR'S ORGANIZ ATION 06/20/2024 [facility] Care Teams (unrecognized sec tion and content) Middle School Tutor Relationship Specialty Start Date End Date Zuly Bruno, ROB PCP - General 07/19/18 Comfort Rivera, [facility] [address] [facility] [address] [place] [address] Pharmacist Pharmacist 05/16/20 Angel Carpio RP,PharmD Pharmacist Pharmacist 05/16/20 Te Leigh [facility],PharmD Pharmacist Pharmacist 01/09/21 Middle School Tutor Relationship Specialty Start Date End Date Zuly Bruno CNP PCP - General 07/19/18 Comfort Rivera, [facility] [address] [place] [address] Pharmacist Pharmacist 05/16/20 Angel Carpio, [facility],PharmD Pharmacist Pharmacist 05/16/20 Te Leigh [facility],PharmD Pharmacist Pharmacist 01/09/21 Middle School Tutor Relationship Specialty Start Date End Date Zuly Bruno CNP PCP - General 07/19/18 Middle School Tutor Relationship Specialty Start Date End Date Zuly Bruno CNP PCP - General 07/19/18 Middle School Tutor Relationship Specialty Start Date End Date Zuly Bruno CNP PCP - General 07/19/18 Middle School Tutor Relationship Specialty Start Date End Date Zuly Bruno CNP PCP - General 07/19/18 Middle School Tutor Relationship Specialty Start Date End Date Zuly Bruno CNP PCP - General 07/19/18 Middle School Tutor Relationship Specialty Start Date End Date Zuly Bruno CNP PCP - General 07/19/18 Middle School Tutor Relationship Specialty Start Date End Date Zuly Bruno CNP PCP - General 07/19/18 Middle School Tutor Relationship Specialty Start Date End Date Zuly Bruno CNP PCP - General 07/19/18 Middle School Tutor Relationship Specialty Start Date End Date Zuly Bruno CNP PCP - General 07/19/18 Middle School Tutor Relationship Specialty Start Date End Date Zuly Bruno CNP PCP - General 07/19/18 Middle School Tutor Relationship Specialty Start Date End Date Zuly Bruno CNP PCP - General 07/19/18 Middle School Tutor Relationship Specialty Start Date End Date Zuly Bruno CNP PCP - General 07/19/18 Middle School Tutor Relationship Specialty Start Date End Date BrianlatishaZuly tipton CNP PCP - General 07/19/18 Middle School Tutor Relationship Specialty Start Date End Date Zuly Bruno CNP PCP - General 07/19/18 Middle School Tutor Relationship Specialty Start Date End Date Zuly Bruno CNP PCP - General 07/19/18 Evan White DO [facility] [place] [address] Infectious Disease Infectious Disease 09/09/23 Middle School Tutor Relationship Specialty Start Date End Date LexielydialatishaZuly tipton ROB PCP - General 07/19/18 Evan White DO [facility] [place] [address] Infectious Disease Infectious Disease 09/09/23 Middle School Tutor Relationship Specialty Start Date End Date Zuly Bruno CNP PCP - General 07/19/18 Evan White DO [facility] [place] [address] Infectious Disease Infectious Disease 09/09/23 Middle School Tutor Relationship Specialty Start Date End Date Momo Verdugo MD PCP - General Family Medicine 05/21/23 Middle School Tutor Relationship Specialty Start Date End Date Momo Verdugo MD PCP - General Family Medicine 05/21/23 Middle School Tutor Relationship Specialty Start Date End Date Momo Verdugo MD PCP - General Family Medicine 05/21/23 Middle School Tutor Relationship Specialty Start Date End Date Zuly Bruno CNP PCP - General 07/19/18 Evan White DO [facility] [place] [address] Infectious Disease Infectious Disease 09/09/23 Middle School Tutor Relationship Specialty Start Date End Date Zuly Bruno CNP PCP - General 07/19/18 Evan White DO [address] [place], [place] [id number] Infectious Disease Infectious Disease 09/09/23 Middle School Tutor Relationship Specialty Start Date End Date Zuly Bruno CNP PCP - General 07/19/18 Evan White DO [address] [place] [address] Infectious Disease Infectious Disease 09/09/23 Middle School Tutor Relationship Specialty Start Date End Date Zuly Bruno CNP PCP - General 07/19/18 Evan White DO [address] [place] [address] Infectious Disease Infectious Disease 09/09/23 Middle School Tutor Relationship Specialty Start Date End Date Zuly Bruno CNP PCP - General 07/19/18 Evan White DO [address] [place] [address] Infectious Disease Infectious Disease 09/09/23 Middle School Tutor Relationship Specialty Start Date End Date Zuly Bruno CNP PCP - General 07/19/18 Middle School Tutor Relationship Specialty Start Date End Date Zuly Bruno CNP PCP - General 07/19/18 Middle School Tutor Relationship Specialty Start Date End Date Zuly Bruno CNP PCP - General 07/19/18 Middle School Tutor Relationship Specialty Start Date End Date Zuly Bruno CNP PCP - General 07/19/18 Middle School Tutor Relationship Specialty Start Date End Date Zuly Bruno CNP PCP - General 07/19/18 Middle School Tutor Relationship Specialty Start Date End Date Zuly [...] - Reason: Transfer to a Procedural area)141 ([facility] Unhold - Provider: Automatic Transfer)2008 (Given - [...] 08 (Given - Provider: Terra Heart RN)105 ([facility] Hold - Provider: Automatic Transfer - Reason: Transfer to a Procedural area)141 ([facility] Unhold - Provider: Automatic Transfer)2008 (Given - Provider: Tati Ahmadi RN) 919 (Given - Provider: Terra Heart RN) Sulfamethoxazole-trime thoprim (BACTRIM DS) 800-160 MG per tablet 1 tablet 1 tablet, Oral, THREE TIMES WEEKLY (Once per day on Thursday), First dose on Thu01/18/24 at 0900, Until Discontinued 08 (Given - Provider: Terra Heart RN)1052 ([facility] Hold - Provider: Automatic Transfer - Reason: Transfer to a Procedural area)1413 ([facility] Unhold - Provider: Automatic Transfer) tacrolimus (PROGRAF) susp 0.2 mg 0.2 mg, Oral, CUSTOM FREQUENCY (Once per day on Thursday), First dose on 01/16/24 at 0900, Until Discontinued, Caution check route of administration. For sublingual administration, place liquid under tongue and allow absorption. 08 (Given - Provider: Erica Gudino RN) 1052 ([facility] Hold - Provider: Automatic Transfer - Reason: Transfer to a Procedural area)141 ([facility] Unhold - Provider: Automatic Transfer) 922 (Given - Provider: Terra Heart RN) Tamsulosin HCl (FLOMAX) capsule 0.4 mg 0.4 mg, Oral, DAILY, First dose on 01/16/24 at 0900, Until Discontinued, Slow release product. Do not chew or crush 42 (Given - Provider: Erica Gudino RN) 08 (Given - Provider: Terra Heart RN)105 ([facility] Hold - Provider: Automatic Transfer - Reason: Transfer to a Procedural area)141 ([facility] Unhold - Provider: Automatic Transfer) 09 (Given [...] 0841 (Given - Provider: Terra Heart RN)1053 ([facility] Hold - Provider: Automatic Transfer - Reason: Transfer to a Procedural area)1414 ([facility] Unhold - Provider: Automatic Transfer) 0920 (Given [...] from all sources in 24 hours. 1053 ([facility] Hold - Provider: Automatic Transfer - Reason: Transfer to a Procedural area)1414 ([facility] Unhold - Provider: Automatic Transfer)1806 (Given - [...] 200-200 mg and Simethicone 20 mg) 1053 ([facility] Hold - Provider: Automatic Transfer - Reason: Transfer to a Procedural area)1414 ([facility] Unhold - Provider: Automatic Transfer) guaiFENesin (ROBITUSSIN) oral solution 400 mg 400 mg, Oral, EVERY 6 HOURS NEEDED, Starting on 01/16/24 at 0202, Until 01/23/24 at 1752, Cough, Congestion 1053 ([facility] Hold - Provider: Automatic Transfer - Reason: Transfer to a Procedural area)1414 ([facility] Unhold - Provider: Automatic Transfer) HYDROmorphone (DILAUDID) [...] 0016, Until 01/23/24 at 1752, Insomnia 1053 ([facility] Hold - Provider: Automatic Transfer - Reason: Transfer to a Procedural area)1414 ([facility] Unhold - Provider: Automatic Transfer)2355 (Given - Provider: Tati Ahmadi, SAMI) Ondansetron (ZOFRAN) tablet 4 mg(Linked Group 1) 4 mg, Oral, EVERY 6 HOURS NEEDED, Starting on 01/16/24 at 0202, Until 01/23/24 at 1752, Nausea / Vomiting, 1st line for Nausea/Vomiting 1053 ([facility] Hold - Provider: Automatic Transfer - Reason: Transfer to a Procedural area)1414 ([facility] Unhold - Provider: Automatic Transfer)1809 (See Alternative - Provider: Terra Heart, SAMI) 0430 (See Alternative - Provider: Tati Ahmadi, SAMI)1415 (Given - Provider: Terra Heart, SAMI) Ondansetron 4mg/2ml (ZOFRAN) injection 4 mg(Linked Group 1) 4 mg, Intravenous, EVERY 6 HOURS NEEDED, Starting on 01/16/24 at 0202, Until 01/23/24 at 1752, Nausea / Vomiting, 1st line for Nausea/Vomiting 1053 ([facility] Hold - Provider: Automatic Transfer - Reason: Transfer to a Procedural area)1414 ([facility] Unhold - Provider: Automatic Transfer)1809 (Given - [...] 01/23/24 at 1752, Constipation 1st Line 1053 ([facility] Hold - Provider: Automatic Transfer - Reason: Transfer to a Procedural area)1414 ([facility] Unhold - Provider: Automatic Transfer) Prochlorperazine (COMPAZINE) injection 10 mg 10 mg, Intravenous, EVERY 6 HOURS NEEDED, Starting on 01/17/24 at 1538, Until 01/23/24 at 1752, Nausea / Vomiting, Refractory Nausea Vomiting, For IV route: dilute dose with 10mL normal saline and give by slow IV push at a rate of 5mg/min. Maximum of 40mg/day. 1053 ([facility] Hold - Provider: Automatic Transfer - Reason: Transfer to a Procedural area)1414 ([facility] Unhold - Provider: Automatic Transfer)2349 (Given - [...] BE BASED ON THE PRIMARY CLINICAL RECORDS. [employer] [facility]. provides no warranty or guarantee of the accuracy or completeness of information in this document.
[2024-07-18 10:43] LABS: Basophils Percent Auto 0.6 % (0.2-2.0); Eosinophils Absolute Auto 0.2 10^3/uL (0.0-0.7); Eosinophils Percent Auto 3.2 % (0.9-7.0); Hematocrit 46.1 % (42.0-54.0); Hemoglobin 15.2 g/dL (14.0-18.0); Immature Granulocytes Abs Auto 0.01 10^3/uL (0.00-0.03); Immature Granulocytes Pct Auto 0.2 % (0.0-0.5); Lymphocytes Absolute Auto 1.4 10^3/uL (1.2-3.8); Lymphocytes Percent Auto 30.2 % (20.5-60.0); Mean Corpuscular Hemoglobin 29.3 pg (25.9-34.0); Mean Corpuscular Volume 88.8 fL (80.0-94.0); Monocytes Absolute Auto 0.5 10^3/uL (0.3-0.8); Monocytes Percent Auto 10.7 % (1.7-12.0); Neutrophils Absolute Auto 2.6 10^3/uL (1.4-6.5); Neutrophils Percent Auto 55.1 % (43.0-75.0); Platelet Count 219 10^3/uL (150-450); Red Blood Count 5.19 10^6/uL (4.70-6.10); Red Cell Distribution Width 12.3 % (11.0-15.0); White Blood Count 4.7 10^3/uL (4.0-11.0)
[2024-07-18 11:18] LABS: Alanine Aminotransferase 32 U/L (16-63); Albumin Level 3.9 g/dL (3.4-5.0); Alkaline Phosphatase 112 U/L (46-116); Anion Gap 10.6; Aspartate Amino Transferase 18 U/L (15-37); Bilirubin Direct 0.2 mg/dL (0.0-0.2); Calcium 9.4 mg/dL (8.5-10.1); Carbon Dioxide 28.4 mmol/L (21.0-32.0); Chloride 104 mmol/L (98-107); Estimated GFR (African America >60 (>=60); Estimated GFR (Non-African Ame >60 (>=60); Gamma Glutamyl Transpeptidase 24 U/L (15-85); Glucose 89 mg/dL (74-106); Phosphorus 3.2 mg/dL (2.6-4.7); Sodium 139 mmol/L (136-145)
[2024-07-18 12:06] LABS: Protein Creatinine Ratio Urine 0.13; Total Protein Urine Random 15.1 mg/dL (<=11.9)
[2024-07-20 10:11] LABS: Tacrolimus (FK506), Blood 3.8 ng/mL (2.0-20.0)
== END 2024-07-18 06:32 | disposition home or self-care (01) ==
LOC: LAB 06:33
PROVIDERS: PCP Nurse Practitioner
DX: B39.0 Acute pulmonary histoplasmosis capsulati (principal); Z94.4 Liver transplant status; Z94.0 Kidney transplant status; R79.9 Abnormal finding of blood chemistry, unspecified; D84.9 Immunodeficiency, unspecified; Z48.298 Encounter for aftercare following other organ transplant
CPT/HCPCS: 36415; 80048; 80197; 82042; 82247; 82248; 82570; 82977; 83735; 84075; 84100; 84156; 84450; 84460; 85025

== ENCOUNTER 2024-07-20 08:00 | Outpatient (OUT) | payer MEDICARE, MEDICAID, SELFPAY ==
--- NOTE | 2024-07-20 08:05 | MR_ITS ---
[address] [address] Patient Name: GEORGE MCCARTNEY MRN: [id number] date: 1970 Sex: M Assigned Patient Location: MRI Current Patient Location: LAB Accession/Order Number: [id number] Exam Date: 07/20/2024 08:15 Report Date: 07/26/2024 08:13 At the request of: NON-STAFF PHYSICIAN Procedure: MR abdomen wo/w con EXAMINATION: MR abdomen wo/w con HISTORY: Liver Lesion COMPARISON: 05/21/2023 CT exam TECHNIQUE: A comprehensive MRI examination of the abdomen was performed to optimize visualization of suspected pathology. Images were obtained both before and after intravenous administration of Dotarem contrast. FINDINGS: LIVER: The liver is stable in size, contour and echotexture. No focal or enhancing mass is identified BILIARY: The gallbladder is absent. No biliary dilation is observed PANCREAS: No lesion, fluid collection, ductal dilatation, or atrophy. SPLEEN: No enlargement or focal lesion. KIDNEYS: The [place] kidneys are severely atrophic. Right lower quadrant transplant kidney is partially visualized ADRENALS: No mass or enlargement. AORTA/VASCULAR: No aneurysm or dissection. RETROPERITONEUM: No mass or adenopathy. BOWEL/MESENTERY: No visible mass, obstruction, or bowel wall thickening. ABDOMINAL WALL: No mass or hernia. BONES: No bony lesion or fracture. LUNG BASES: No visible pleural disease. Lung bases not well assessed with MRI. OTHER: Negative. MR/MR abdomen wo/w con IMPRESSION: No focal or enhancing liver lesion identified Electronically authenticated by: GIAN RODRIGUEZ Date: 07/26/2024 08:13
== END 2024-07-20 08:01 | disposition home or self-care (01) ==
LOC: MRI 08:00
PROVIDERS: PCP Nurse Practitioner
DX: K76.9 Liver disease, unspecified (principal)
CPT/HCPCS: 74183

== ENCOUNTER 2024-08-02 06:44 | Outpatient (OUT) | payer MEDICARE, MEDICAID, SELFPAY ==
--- OUTSIDE RECORDS SUMMARY | 2024-08-02 06:50 | XMS_ITS | CCD ---
Author Organization [facility] Care Team Providers Care Milk Pasteurizer Name Role Phone Kaina Zuly Unavailable Unavailable Primary Care Provider Unavailabl e KASMANI, ROB Referring Unavailable KASMANI, ROB Referring Unavailable KASMANI, ROB Referring Unavailable RIST, RENA Referring Unavailable JOHARTANA S Referring Unavailable RIST, RENA Referring Unavailable RIST, RENA Referring Unavailable RIST, RENA Referring Unavailable RIST, RENA Referring Unavailable PEPE CASE Attending Unavailable PEPE CASE Admitting Unavailable AICHHOLZ, ZULY Referring Unavailable AICHHOLZ, ZULY Primary Care Unavailable Aichholz [facility] Primary Care Provider Miguel RPComfort Unavailable Shirin [facility],PharmD, Angel Unavailable Unavailab makayla Leigh [facility],PharmD, Te Unavailable Unavai lable Aicholz [facility] Primary Care Provider [phone] CHANDUC, DR BURCH Admitting Unavailable MISC, DR BURCH Consulting Unavailable AICHHOLZ, SENIOR ENERGY ANALYST ZULY Primary Care Unavailable MISC, DR BURCH Attending Unavailable MISC, DR BURCH Admitting Unavailable MISC, DR BURCH Consulting Unavailable AICHHOLZ, SENIOR ENERGY ANALYST ZULY Primary Care Unavailable MISC, DR BURCH Attending Unavailable ARCELIA PIZARRO Consulting Unavailable KE BURNHAM Attending Unavailable KE BURNHAM Admitting Unavailable BARBARA, DR MÓNICA Munoz Consulting Unavailable AICHHOLZ, SENIOR ENERGY ANALYST ZULY Primary Care Unavailable KE BURNHAM Consulting Unavailable MISC, DR BURCH Consulting Unavailable MISC, DR BURCH Attending Unavailable AICHHOLZ, SENIOR ENERGY ANALYST ZULY Primary Care Unavailable MISC, DR BURCH Admitting Unavailable MISC, DR BURCH Consulting Unavailable MISC, DR BURCH Attending Unavailable AICHHOLZ, SENIOR ENERGY ANALYST ZULY Primary Care Unavailable MISC, DR BURCH Admitting Unavailable MISC, DR BURCH Consulting Unavailable AICHHOLZ, SENIOR ENERGY ANALYST ZULY Primary Care Unavailable MISC, DOCTOR Admitting Unavailable MISC, DR DOCTOR Attending Unavailable MELINDA, DR GEORGE Munoz Consulting Unavailable MELINDA, DR GEORGE Munoz Attending Unavailable AICHHOLZ, SENIOR ENERGY ANALYST ZULY Primary Care Unavailable MELINDA, DR GEORGE Munoz Admitting Unavailable NAUN ., KE Consulting Unavailable MIRANDA, LYNDSAY Consulting Unavailable MELINDA, DR GEORGE Munoz Consulting Unavailable NAUN ., KE Attending Unavailable NAUN ., KE Admitting Unavailable AICHHOLZ, SENIOR ENERGY ANALYST ZULY Primary Care Unavailable NAUN ., KE Consulting Unavailable GIAN HERRING Consulting Unavailable AICHHOLZ, SENIOR ENERGY ANALYST ZULY Consulting Unavailable AICHHOLZ, SENIOR ENERGY ANALYST ZULY Attending Unavailable AICHHOLZ, SENIOR ENERGY ANALYST ZULY Admitting Unavailable AICHHOLZ, SENIOR ENERGY ANALYST ZULY Primary Care Unavailable MISC, DR DOCTOR Consulting Unavailable MISC, DOCTOR Admitting Unavailable MISC, DOCTOR Attending Unavailable AICHHOLZ, SENIOR ENERGY ANALYST ZULY Primary Care Unavailable MISC, DR DOCTOR Consulting Unavailable MISC, DR DOCTOR Attending Unavailable MISC, DOCTOR Admitting Unavailable AICHHOLZ, SENIOR ENERGY ANALYST ZULY Primary Care Unavailable MISC, DOCTOR Admitting Unavailable MISC, DOCTOR Consulting Unavailable MISC, DR DOCTOR Attending Unavailable AICHHOLZ, SENIOR ENERGY ANALYST ZULY Primary Care Unavailable MISC, DOCTOR Admitting Unavailable MISC, DR DOCTOR Consulting Unavailable AICHHOLZ, SENIOR ENERGY ANALYST ZULY Primary Care Unavailable MISC, DR DOCTOR Attending Unavailable MISC, DOCTOR Admitting Unavailable MISC, DOCTOR Consulting Unavailable AICHHOLZ, SENIOR ENERGY ANALYST ZULY Primary Care Unavailable MISC, DR DOCTOR Attending Unavailable AICHHOLZ, SENIOR ENERGY ANALYST ZULY Consulting Unavailable AICHHOLZ, SENIOR ENERGY ANALYST ZULY Attending Unavailable AICHHOLZ, SENIOR ENERGY ANALYST ZULY Admitting Unavailable AICHHOLZ, SENIOR ENERGY ANALYST ZULY Primary Care Unavailable DR MÓNICA JIMENEZ Consulting Unavailable Aichholz [facility], Zuly Primary Care Provider [phone] Evan White DO Unavailable [phone] [facility], Zuly Primary Care Provider [phone] Tran White DOs A Unavailable Momo Verdugo MD Primary Care Provider [phone] Aichholz SENIOR ENERGY ANALYST, Zuly Primary Care Provider AICHHOLZ, ZULY Attending [...] to adverse reactions to drug 9 [facility] (1 source) Shellfish Drug allergy (disorder) [facility] Repository Medications Current Medications Medication Drug [...] 1 capsule by mouth once daily b ddxrgvr-C-dzeev acid (NEPHROCAPS) 1 MG capsule Take 1 [...] ankle pain. 0 06/12/2020 06/12/2023 Discontinued lactulose 99960 mg powder for oral solution (19 sources) [...] 07/17/2018 Active take [address] 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 White - [phone] Transplant Neph - [phone] Each 09/10/2023 01/19/2024 Discontinued (Medication Reconciliation (suppress cancel msg)) Start: 09-10-2023 CUSTOM MEDICAT ION Labs to be obtained: 1- Tacrolimus level, trough - collect twice weekly until 09/24/23, then weekly until 10/08/23, them once every two weeks there after. 2- Itraconazole level - obtain once between 09/14-09/18. 3- Chem 6 - Obtain weekly while on itraconazole Fax results to: Dr. Cindy Moran [phone] Transplant Neph - [phone] Each 0 09/10/2023 Active Diatrizoate (1 [...] (ROXICODONE) tablet 10 mg polyethylene glycol 3350 53963 mg powder for oral solution (20 sources) [...] rate of 5mg/min. Maximum of 40mg/day. sennosides, correction 8.6 mg oral tablet (1 source) Start: [...] Start: 08-20-2022 take [address] 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 Family History Problem Relation Age of Onset Coronary artery disease Mother Coronary artery disease Father Family Status - Relation Status Age at Mother Father Level of Service:[address] [place] OFFICE/OUTPATIENT ESTABLISHED LOW MDM 20 MIN Reason for Visit and Comments: Follow-up [899419] - Yearly follow up Normal [facility] B-TYPE NATRIURETIC PEPTIDE ( BRAIN)on 02-26-2024 Interpretation and review of laboratory results Normal [facility] Natriuretic peptide B (Bld) [Mass/Vol] 72 pg/mL 0 - 100 pg/mL [facility] Natriuretic peptide B (Bld) [Mass/Vol] 72 pg/mL Normal 0-100 [facility] Comment on above: Performed By: #### B ASSURANCE ASSISTANT ####[facility] (DEFAULT)[address] [place] [address] CHEM 6 (LYTES, BUN CREA)on 0 02-26-2024 Anion gap [Moles/Vol] 13 mmol/L 7 - 17 mmol/L [facility] Chloride [Moles/Vol] 107 mmol/L 98 - 10 8 mmol/L [facility] CO2 [Moles/Vol] 25 mmol/L 21 - 31 mmol/L [facility] Creatinine [Mass/Vol] 1.23 mg/dL 0.70 - 1.30 mg/dL [facility] eGFR, CKD-EPI, Male 70 - PINF [facility] Comment on above: Reported eGFR is bas ed on the CKD-EPI 2020 equation using creatinine, age, and sex. Potassium [Moles/Vol] 4.2 mmol/L 3.5 - 5.0 mmol/L [facility] Sodium [Moles/Vol] 141 mmol/L 135 - 145 mmol/L [facility] Urea nitrogen [Mass/Vol] 17 mg/dL 7 - 25 mg/dL [facility] Urea nitrogen/Creatinine [Mass ratio] 14 mg/mg [facility] Anion gap [Moles/Vol] 13 mmol/L Normal 7-17 [facility] Comment on above: Performed By: #### C HM6 ####[facility] (DEFAULT)[address] [place] [address] Chloride [Moles/Vol] 107 mmol/L Normal 98-108 [facility] Comment on above: Performed By: #### C HM6 ####[facility] (DEFAULT)[address] [place] [address] CO2 [Moles/Vol] 25 mmol/L Normal 21-31 [facility] Comment on above: Performed By: #### C HM6 ####[facility] (DEFAULT)[address] [place] [address] Creatinine [Mass/Vol] 1.23 mg/dL Normal 0.70-1.30 [facility] Comment on above: Performed By: #### C HM6 ####[facility] (DEFAULT)[address] [place] [address] GFR/1.73 sq M.predicted among non-blacks MDRD (S/P/Bld) [Vol rate/Area] 70 mL/min/{1.73_m2} Normal >=60 [facility] Comment on above: Result Comment: Repo rted eGFR is based on the CKD-EPI 2020 equation using creatinine, age, and sex. Performed By: #### C HM6 ####[facility] (DEFAULT)[address] [place] [address] Potassium [Moles/Vol] 4.2 mmol/L Normal 3.5-5.0 [facility] Comment on above: Performed By: #### C HM6 ####[facility] (DEFAULT)[address] [place] [address] Sodium [Moles/Vol] 141 mmol/L Normal 135-145 [facility] Comment on above: Performed By: #### C HM6 ####[facility] (DEFAULT)[address] [place] [address] Urea nitrogen [Mass/Vol] 17 mg/dL Normal 7-25 [facility] Comment on above: Performed By: #### C HM6 ####[facility] (DEFAULT)[address] [place] [address] Urea nitrogen/Creatinine [Mass ratio] 14 mg/mg Normal [facility] Comment on above: Performed By: #### C HM6 ####[facility] (DEFAULT)[address] [place] [address] CBC,PLATELETSon 01-23-2024 Erythrocyte distribution width (RBC) [Ratio] 14.2 % 10.9 - 14.3 % [facility] Hematocrit (Bld) [Volume fraction] 37.0 % Low 39.6 - 48.8 % [facility] Hemoglobin (Bld) [Mass/Vol] 12.0 g/dL Low 13.4 - 16.8 g/dL [facility] Interpretation and review of laboratory results Abnormal [facility] MCH (RBC) [Entitic mass] 28.6 pg 26.1 - 33.3 pg [facility] MCHC (RBC) [Mass/Vol] 32.4 g/dL 31.9 - 36.5 g/dL [facility] MCV (RBC) [Entitic vol] 88.1 fL 79.0 - 94.5 fL [facility] Platelet mean volume (Bld) [Entitic vol] 10.4 fL 8.7 - 12.3 fL [facility] Platelets (Bld) [#/Vol] 170 10*3/uL 146 - 337 K/uL [facility] RBC (Bld) [#/Vol] 4.20 10*6/uL Low [facility] WBC (Bld) [#/Vol] 3.70 10*3/uL Low 3.73 - 10. 10 K/uL [facility] Hematocrit (Bld) [Volume fraction] 37.0 % Low 39.6-48.8 [facility] Comment on above: Performed By: #### [facility] ####[facility] (DEFAULT)[address] [place] [address] Hemoglobin (Bld) [Mass/Vol] 12.0 g/dL Low 13.4-16.8 [facility] Comment on above: Performed By: #### [facility] ####[facility] (DEFAULT)[address] [place] [address] MCV (RBC) [Entitic vol] 88.1 fL Normal 79.0-94.5 [facility] Comment on above: Performed By: #### [facility] ####[facility] (DEFAULT)[address] [place] [address] Mean Cell Hgb 28.6 pg Normal 26.1-33.3 [facility] Comment on above: Performed By: #### H EMOGC ####[facility] (DEFAULT)[address] [place] [address] Mean Cell Hgb Conc 32.4 g/dL Normal 31.9-36.5 [facility] Comment on above: Performed By: #### H EMOGC ####[facility] (DEFAULT)[address] [place] [address] Platelet mean volume (Bld) [Entitic vol] 10.4 fL Normal 8.7-12.3 [facility] Comment on above: Performed By: #### H EMOGC ####[facility] (DEFAULT)[address] [place] [address] Platelets (Bld) [#/Vol] 170 10*3/uL Normal 146-337 [facility] Comment on above: Performed By: #### H EMOGC ####[facility] (DEFAULT)[address] [place] [address] RBC (Bld) [#/Vol] 4.20 10*6/uL Low 4.38-5.83 [facility] Comment on above: Performed By: #### H EMOGC ####[facility] (DEFAULT)[address] [place] [address] RBC Distribution 14.2 % Normal 10.9-14.3 [facility] Comment on above: Performed By: #### H EMOGC ####[facility] (DEFAULT)[address] [place] [address] WBC (Bld) [#/Vol] 3.70 10*3/uL Low 3.73-10.10 [facility] Comment on above: Performed By: #### H EMOGC ####[facility] (DEFAULT)[address] [place] [address] CHEM 7 (LYTES,BUN,CREA,GLUC) on 01-23-2024 Anion gap [Moles/Vol] 14 mmol/L 7 - 17 mmol/L [facility] Chloride [Moles/Vol] 105 mmol/L 98 - 10 8 mmol/L [facility] CO2 [Moles/Vol] 25 mmol/L 21 - 31 mmol/L [facility] Creatinine [Mass/Vol] 1.32 mg/dL High 0.70 - 1.30 mg/dL [facility] eGFR, CKD-EPI, Male 65 - PINF [facility] Comment on above: Reported eGFR is bas ed on the CKD-EPI 2020 equation using creatinine, age, and sex. Glucose [Mass/Vol] 94 mg/dL 70 - 99 mg/dL [facility] Osmolality Calc [Osmolality] 296 [facility] Potassium [Moles/Vol] 3.8 mmol/L 3.5 - 5.0 mmol/L [facility] Sodium [Moles/Vol] 140 mmol/L 135 - 145 mmol/L [facility] Urea nitrogen [Mass/Vol] 23 mg/dL 7 - 25 mg/dL [facility] Urea nitrogen/Creatinine [Mass ratio] 17 mg/mg [facility] Anion gap [Moles/Vol] 14 mmol/L Normal 7-17 [facility] Comment on above: Performed By: #### NATHANIEL RAMÍREZ, HFP ####[facility] (DEFAULT)[address] [place] [address] Chloride [Moles/Vol] 105 mmol/L Normal 98-108 [facility] Comment on above: Performed By: #### NATHANIEL RAMÍREZ, HFP ####[facility] (DEFAULT)[address] [place] [address] CO2 [Moles/Vol] 25 mmol/L Normal 21-31 [facility] Comment on above: Performed By: #### NATHANIEL RAMÍREZ, HFP ####U [facility] (DEFAULT)[address] [place] [address] Creatinine [Mass/Vol] 1.32 mg/dL High 0.70-1.30 [facility] Comment on above: Performed By: #### M NATHANIEL BLOOM, HFP ####U [facility] (DEFAULT)[address] [place] [address] GFR/1.73 sq M.predicted among non-blacks MDRD (S/P/Bld) [Vol rate/Area] 65 mL/min/{1.73_m2} Normal >=60 [facility] Comment on above: Result Comment: Repo rted eGFR is based on the CKD-EPI 2020 equation using creatinine, age, and sex. Performed By: #### M NATHANIEL BLOOM, HFP ####U [facility] (DEFAULT)[address] [place] [address] Glucose [Mass/Vol] 94 mg/dL Normal 70-99 [facility] Comment on above: Performed By: #### M NATHANIEL BLOOM, HFP ####[facility] (DEFAULT)[address] [place] [address] Osmolality [Osmolality] 296 mosm/kg Normal 278-305 [facility] Comment on above: Performed By: #### M NATHANIEL BLOOM, HFP ####U [facility] (DEFAULT)[address] [place] [address] Potassium [Moles/Vol] 3.8 mmol/L Normal 3.5-5.0 [facility] Comment on above: Performed By: #### M NATHANIEL BLOOM, HFP ####U [facility] (DEFAULT)[address] [place] [address] Sodium [Moles/Vol] 140 mmol/L Normal 135-145 [facility] Comment on above: Performed By: #### M NATHANIEL BLOOM, HFP ####[facility] (DEFAULT)[address] [place] [address] Urea nitrogen [Mass/Vol] 23 mg/dL Normal 7-25 [facility] Comment on above: Performed By: #### NATHANIEL RAMÍREZ, HFP ####[facility] (DEFAULT)[address] [place] [address] Urea nitrogen/Creatinine [Mass ratio] 17 mg/mg Normal [facility] Comment on above: Performed By: #### M NATHANIEL BLOOM, HFP ####[facility] (DEFAULT)[address] [place] [address] GLUCOSE POCon 01-23-2024 Glucose [Mass/Vol] 88 mg/dL 70 - 99 mg/dL [facility] POC Sample Type [facility] Test performed at ad dress of the patient encounter. [facility] Glucose [Mass/Vol] 191 mg/dL High 70 - 99 mg/dL [facility] Interpretation and review of laboratory results Abnormal [facility] POC Sample Type CAPBL [facility] Test performed at ad dress of the patient encounter. [facility] HEPATIC FUNCTION PANELon Albumin [Mass/Vol] 3.9 g/dL 3.5 - 5.0 g/dL [facility] ALP [Catalytic activity/Vol] 83 U/L 32 - 126 U/L [facility] ALT [Catalytic activity/Vol] 9 U/L Low 10 - 52 U/L [facility] AST [Catalytic activity/Vol] 17 U/L 10 - 39 U/L [facility] Bilirubin [Mass/Vol] 1.6 mg/dL High NINF - 1.5 mg/dL [facility] Bilirubin.direct [Mass/Vol] 0.4 mg/dL High NINF - 0.3 mg/dL [facility] Protein [Mass/Vol] 6.6 g/dL 6.4 - 8.3 g/dL [facility] Albumin [Mass/Vol] 3.9 g/dL Normal 3.5-5.0 [facility] Comment on above: Performed By: #### M MERLE CHM7, HFP ####[facility] (DEFAULT)[address] [place] [address] ALP [Catalytic activity/Vol] 83 U/L Normal 32-126 [facility] Comment on above: Performed By: #### M MERLE CHM7, HFP ####[facility] (DEFAULT)[address] [place] [address] ALT [Catalytic activity/Vol] 9 U/L Low 10-52 [facility] Comment on above: Performed By: #### M MERLE CHM7, HFP ####U [facility] (DEFAULT)[address] [place] [address] AST [Catalytic activity/Vol] 17 U/L Normal 10-39 [facility] Comment on above: Performed By: #### M MERLE CHM7, HFP ####[facility] (DEFAULT)[address] [place] [address] Bilirubin [Mass/Vol] 1.6 mg/dL High <1.5 [facility] Comment on above: Performed By: #### M GO CHM7, HFP ####[facility] (DEFAULT)[address] [place] [address] Bilirubin.indirect [Mass/Vol] 0.4 mg/dL High <0.3 [facility] Comment on above: Performed By: #### M GO CHM7, HFP ####[facility] (DEFAULT)[address] [place] [address] Protein [Mass/Vol] 6.6 g/dL Normal 6.4-8.3 [facility] Comment on above: Performed By: #### M GO, CHM7, HFP ####[facility] (DEFAULT)[address] [place] [address] ITRACONAZOLE LEVELon 024 Hydroxyitraconazole [Mass/Vol] 7.6 mcg/mL [facility] Comment on above: REFERENCE VALUE No therapeutic range established; activity and serum concentration are similar to parent drug. ADDITIONAL INFORMATION This test was developed and its performance characteristics determined by [facility] in a manner consistent with CLIA requirements. This test has not been cleared or approved by the U.S. Food and Drug Administration. Test Performed by: [facility] - [address] [address] Shell Coremaker: Rosendo Bose M.D. Ph.D.; CLIA# [id number] Itraconazole [Mass/Vol] 6.0 mcg/mL [facility] Comment on above: REFERENCE VALUE >0.5 (localized infection), >1.0 (systemic infection) [facility] MAGNESIUMon 01-23-2024 Interpretation and review of laboratory results Normal [facility] Magnesium [Mass/Vol] 1.8 mg/dL 1.6 - 2 .6 mg/dL [facility] Magnesium [Mass/Vol] 1.8 mg/dL Normal 1.6-2.6 [facility] Comment on above: Performed By: #### M HELEN BLOOMM7, HFP ####[facility] (DEFAULT)[address] [place] [address] No Panel Informationon 01-23 Interpretation and review of laboratory results Abnormal [facility] TACROLIMUS LEVEL, TROUGH (IL E DRUG LEVEL)on 01-23-2024 Interpretation and review of laboratory results Normal [facility] Tacrolimus (Bld) [Mass/Vol] 7.0 ng/mL Bone Marrow Transplant: 4.0-12.0, Therapeutic: 5.0-15.0 [facility] Method performed is a chemiluminescent microparticle immunoasssay on the [employer]rick[employer] Tender i2000. The range is based on experience at [facility] and users should be aware that target concentrations vary widely depending on concomitant therapy, time post-transplant, and desired degree of immunosuppression. [facility] Tacrolimus, Trough 7.0 ng/mL Normal Bone Susana ow Transplant: 4.0-12.0, Therapeutic: 5.0-15.0 [facility] Comment on above: Order Comment: Pleas e draw at specified interval PRIOR to dose. Do not hold dose to wait for level. Specimens batched twice per day, (M-F) and once per day weekendsMethod performed is a chemiluminescent microparticle immunoasssay on the [employer] Tender i2000.The range is based on experience at [facility] and users should be aware that target concentrations vary widely depending on concomitant therapy, time post-transplant, and desired degree of immunosuppression. Performed By: #### T ACRO ####[facility] (DEFAULT)[address] [place] [address] CARDIAC RHYTHM (SCANNED)on 0 01-22-2024 [facility] CBC,PLATELETSon 01-22-2024 Erythrocyte distribution width (RBC) [Ratio] 14.1 % 10.9 - 14.3 % [facility] Hematocrit (Bld) [Volume fraction] 41.5 % 39.6 - 48.8 % [facility] Hemoglobin (Bld) [Mass/Vol] 13.3 g/dL Low 13.4 - 16.8 g/dL [facility] Interpretation and review of laboratory results Abnormal [facility] MCH (RBC) [Entitic mass] 27.8 pg 26.1 - 33.3 pg [facility] MCHC (RBC) [Mass/Vol] 32.0 g/dL 31.9 - 36.5 g/dL [facility] MCV (RBC) [Entitic vol] 86.8 fL 79.0 - 94.5 fL [facility] Platelet mean volume (Bld) [Entitic vol] 10.5 fL 8.7 - 12.3 fL [facility] Platelets (Bld) [#/Vol] 186 10*3/uL 146 - 337 K/uL [facility] RBC (Bld) [#/Vol] 4.78 10*6/uL [facility] WBC (Bld) [#/Vol] 3.74 10*3/uL 3.73 - 10. 10 K/uL [facility] Hematocrit (Bld) [Volume fraction] 41.5 % Normal 39.6-48.8 [facility] Comment on above: Performed By: #### [facility] ####[facility] (DEFAULT)[address] [place] [address] Hemoglobin (Bld) [Mass/Vol] 13.3 g/dL Low 13.4-16.8 [facility] Comment on above: Performed By: #### H EMO ####[facility] (DEFAULT)[address] [place] [address] MCV (RBC) [Entitic vol] 86.8 fL Normal 79.0-94.5 [facility] Comment on above: Performed By: #### H EMO ####[facility] (DEFAULT)[address] [place] [address] Mean Cell Hgb 27.8 pg Normal 26.1-33.3 [facility] [facility] Comment on above: Performed By: #### H EMOGC ####[facility] (DEFAULT)[address] [place] [address] Mean Cell Hgb Conc 32.0 g/dL Normal 31.9-36.5 [facility] Comment on above: Performed By: #### H EMOGC ####[facility] (DEFAULT)[address] [place] [address] Platelet mean volume (Bld) [Entitic vol] 10.5 fL Normal 8.7-12.3 [facility] Comment on above: Performed By: #### [facility] ####[facility] (DEFAULT)[address] [place] [address] Platelets (Bld) [#/Vol] 186 10*3/uL Normal 146-337 [facility] Comment on above: Performed By: #### [facility] ####[facility] (DEFAULT)[address] [place] [address] RBC (Bld) [#/Vol] 4.78 10*6/uL Normal 4.38-5.83 [facility] Comment on above: Performed By: #### [facility] ####[facility] (DEFAULT)[address] [place] [address] RBC Distribution 14.1 % Normal 10.9-14.3 [facility] Comment on above: Performed By: #### [facility] ####[facility] (DEFAULT)[address] [place] [address] WBC (Bld) [#/Vol] 3.74 10*3/uL Normal 3.73-10.10 [facility] Comment on above: Performed By: #### [facility] ####[facility] (DEFAULT)[address] [place] [address] CHEM 7 (LYTES,BUN,CREA,GLUC) on 01-22-2024 Anion gap [Moles/Vol] 13 mmol/L 7 - 17 mmol/L [facility] Chloride [Moles/Vol] 109 mmol/L High 98 - 10 8 mmol/L [facility] CO2 [Moles/Vol] 23 mmol/L 21 - 31 mmol/L [facility] Creatinine [Mass/Vol] 1.10 mg/dL 0.70 - 1.30 mg/dL [facility] eGFR, CKD-EPI, Male 81 - PINF [facility] Comment on above: Reported eGFR is bas ed on the CKD-EPI 2021 equation using creatinine, age, and sex. Glucose [Mass/Vol] 84 mg/dL 70 - 99 mg/dL [facility] Interpretation and review of laboratory results Abnormal [facility] Osmolality Calc [Osmolality] 295 [facility] Potassium [Moles/Vol] 4.0 mmol/L 3.5 - 5.0 mmol/L [facility] Sodium [Moles/Vol] 141 mmol/L 135 - 145 mmol/L [facility] Urea nitrogen [Mass/Vol] 16 mg/dL 7 - 25 mg/dL [facility] Urea nitrogen/Creatinine [Mass ratio] 15 mg/mg [facility] Anion gap [Moles/Vol] 13 mmol/L Normal 7-17 [facility] Comment on above: Performed By: #### Rod BLOOM CHM7 ####[facility] (DEFAULT)[address] [place] [address] Chloride [Moles/Vol] 109 mmol/L High 98-108 [facility] Comment on above: Performed By: #### Rod BLOOM CHM7 ####[facility] (DEFAULT)[address] [place] [address] CO2 [Moles/Vol] 23 mmol/L Normal 21-31 [facility] Comment on above: Performed By: #### Rod BLOOM CHM7 ####[facility] (DEFAULT)[address] [place] [address] Creatinine [Mass/Vol] 1.10 mg/dL Normal 0.70-1.30 [facility] Comment on above: Performed By: #### Rod BLOOM CHM7 ####[facility] (DEFAULT)[address] [place] [address] GFR/1.73 sq M.predicted among non-blacks MDRD (S/P/Bld) [Vol rate/Area] 81 mL/min/{1.73_m2} Normal >=60 [facility] Comment on above: Result Comment: Repo rted eGFR is based on the CKD-EPI 2021 equation using creatinine, age, and sex. Performed By: #### NATHANIEL RAMÍREZ ####[facility] (DEFAULT)[address] [place] [address] Glucose [Mass/Vol] 84 mg/dL Normal 70-99 [facility] Comment on above: Performed By: #### TJ RAMÍREZ7 ####[facility] (DEFAULT)[address] [place] [address] Osmolality [Osmolality] 295 mosm/kg Normal 278-305 [facility] Comment on above: Performed By: #### TJ RAMÍREZ7 ####[facility] (DEFAULT)[address] [place] [address] Potassium [Moles/Vol] 4.0 mmol/L Normal 3.5-5.0 [facility] Comment on above: Performed By: #### NATHANIEL RAMÍREZ ####[facility] (DEFAULT)[address] [place] [address] Sodium [Moles/Vol] 141 mmol/L Normal 135-145 [facility] Comment on above: Performed By: #### TJ RAMÍREZ7 ####[facility] (DEFAULT)[address] [place] [address] Urea nitrogen [Mass/Vol] 16 mg/dL Normal 7-25 [facility] Comment on above: Performed By: #### TJ RAMÍREZ7 ####[facility] (DEFAULT)[address] [place] [address] Urea nitrogen/Creatinine [Mass ratio] 15 mg/mg Normal [facility] Comment on above: Performed By: #### NATHANIEL RAMÍREZ ####[facility] (DEFAULT)[address] [place] [address] MAGNESIUMon 01-22-2024 Interpretation and review of laboratory results Normal [facility] Magnesium [Mass/Vol] 2.0 mg/dL 1.6 - 2 .6 mg/dL [facility] Magnesium [Mass/Vol] 2.0 mg/dL Normal 1.6-2.6 [facility] Comment on above: Performed By: #### M [facility] ####[facility] (DEFAULT)[address] [place] [address] No Panel Informationon 01-22 [facility] PT,INR,PTTon 01-22-2024 aPTT Coag (PPP) [Time] 29.2 s [facility] INR Coag (Bld) [Relative time] 1.1 {INR} 0.9 - 1.1 [facility] Interpretation and review of laboratory results Abnormal [facility] PT Coag (PPP) [Time] 14.3 s High [facility] aPTT Coag (Bld) [Time] 29.2 s Normal 24.0-34.3 [facility] Comment on above: Performed By: #### P TPTT ####[facility] (DEFAULT)[address] [place] [address] INR Coag (PPP) [Relative time] 1.1 {INR} Normal 0.9-1.1 [facility] Comment on above: Performed By: #### P TPTT ####[facility] (DEFAULT)[address] [place] [address] PT Coag (PPP) [Time] 14.3 s High 11.9-14.2 [facility] Comment on above: Performed By: #### P TPTT ####[facility] (DEFAULT)[address] [place] [address] TACROLIMUS LEVEL, TROUGH (IL E DRUG LEVEL)Ordered By: Sheree Jensen on 01-22-2024 Interpretation and review of laboratory results Normal [facility] Tacrolimus (Bld) [Mass/Vol] 7.9 ng/mL Bone Marrow Transplant: 4.0-12.0, Therapeutic: 5.0-15.0 [facility] Method performed is a chemiluminescent microparticle immunoasssay on the [employer] B[employer]layer Tender i2000. The range is based on experience at [facility] and users should be aware that target concentrations vary widely depending on concomitant therapy, time post-transplant, and desired degree of immunosuppression. [facility] TACROLIMUS LEVEL, TROUGH (IL E DRUG LEVEL)on 01-22-2024 Tacrolimus, Trough 7.9 ng/mL Normal Bone Susana ow Transplant: 4.0-12.0, Therapeutic: 5.0-15.0 [facility] Comment on above: Order Comment: Pleas e draw at specified interval PRIOR to dose. Do not hold dose to wait for level. Specimens batched twice per day, (M-F) and once per day weekendsMethod performed is a chemiluminescent microparticle immunoasssay on the [employer]layer Tender i2000.The range is based on experience at [facility] and users should be aware that target concentrations vary widely depending on concomitant therapy, time post-transplant, and desired degree of immunosuppression. Performed By: #### T ACRO ####[facility] (DEFAULT)[address] [place] [address] TYPE AND SCREENon 01-22-2024 ABO/RH(D) TYPE Positive [facility] ABO/RH(D) TYPE Positive Normal [facility] Comment on above: Performed By: #### X M ####[facility] (DEFAULT)[address] [place] [address] [place] Unspecified body regionOr dered By: Unassigned Pacs on 01-22-2024 [facility] Work Phone: [place] Unspecified body regionon 01-22-2024 Radiology Study observation (narrative) [facility] CBC,PLATELETSon 01-21-2024 Erythrocyte distribution width (RBC) [Ratio] 14.0 % 10.9 - 14.3 % [facility] Hematocrit (Bld) [Volume fraction] 39.4 % Low 39.6 - 48.8 % [facility] Hemoglobin (Bld) [Mass/Vol] 12.7 g/dL Low 13.4 - 16.8 g/dL [facility] Interpretation and review of laboratory results Abnormal [facility] MCH (RBC) [Entitic mass] 28.0 pg 26.1 - 33.3 pg [facility] MCHC (RBC) [Mass/Vol] 32.2 g/dL 31.9 - 36.5 g/dL [facility] MCV (RBC) [Entitic vol] 87.0 fL 79.0 - 94.5 fL [facility] Platelet mean volume (Bld) [Entitic vol] 10.2 fL 8.7 - 12.3 fL [facility] Platelets (Bld) [#/Vol] 157 10*3/uL 146 - 337 K/uL [facility] RBC (Bld) [#/Vol] 4.53 10*6/uL [facility] WBC (Bld) [#/Vol] 3.42 10*3/uL Low 3.73 - 10. 10 K/uL [facility] Hematocrit (Bld) [Volume fraction] 39.4 % Low 39.6-48.8 [facility] Comment on above: Performed By: #### [facility] ####[facility] (DEFAULT)[address] [place] [address] Hemoglobin (Bld) [Mass/Vol] 12.7 g/dL Low 13.4-16.8 [facility] Comment on above: Performed By: #### [facility] ####[facility] (DEFAULT)[address] [place] [address] MCV (RBC) [Entitic vol] 87.0 fL Normal 79.0-94.5 [facility] Comment on above: Performed By: #### [facility] ####[facility] (DEFAULT)[address] [place] [address] Mean Cell Hgb 28.0 pg Normal 26.1-33.3 [facility] Comment on above: Performed By: #### [facility] ####[facility] (DEFAULT)[address] [place] [address] Mean Cell Hgb Conc 32.2 g/dL Normal 31.9-36.5 [facility] Comment on above: Performed By: #### H EMOGC ####[facility] (DEFAULT)[address] [place] [address] Platelet mean volume (Bld) [Entitic vol] 10.2 fL Normal 8.7-12.3 [facility] Comment on above: Performed By: #### H EMOGC ####[facility] (DEFAULT)[address] [place] [address] Platelets (Bld) [#/Vol] 157 10*3/uL Normal 146-337 [facility] Comment on above: Performed By: #### H EMOGC ####[facility] (DEFAULT)[address] [place] [address] RBC (Bld) [#/Vol] 4.53 10*6/uL Normal 4.38-5.83 [facility] Comment on above: Performed By: #### H EMOGC ####[facility] (DEFAULT)[address] [place] [address] RBC Distribution 14.0 % Normal 10.9-14.3 [facility] Comment on above: Performed By: #### H EMOGC ####[facility] (DEFAULT)[address] [place] [address] WBC (Bld) [#/Vol] 3.42 10*3/uL Low 3.73-10.10 [facility] Comment on above: Performed By: #### H EMOGC ####[facility] (DEFAULT)[address] [place] [address] CHEM 7 (LYTES,BUN,CREA,GLUC) on 01-21-2024 Anion gap [Moles/Vol] 12 mmol/L 7 - 17 mmol/L [facility] Chloride [Moles/Vol] 107 mmol/L 98 - 10 8 mmol/L [facility] CO2 [Moles/Vol] 26 mmol/L 21 - 31 mmol/L [facility] Creatinine [Mass/Vol] 1.11 mg/dL 0.70 - 1.30 mg/dL [facility] eGFR, CKD-EPI, Male 80 - PINF [facility] Comment on above: Reported eGFR is bas ed on the CKD-EPI 2020 equation using creatinine, age, and sex. Glucose [Mass/Vol] 93 mg/dL 70 - 99 mg/dL [facility] Osmolality Calc [Osmolality] 295 [facility] Potassium [Moles/Vol] 3.9 mmol/L 3.5 - 5.0 mmol/L [facility] Sodium [Moles/Vol] 141 mmol/L 135 - 145 mmol/L [facility] Urea nitrogen [Mass/Vol] 15 mg/dL 7 - 25 mg/dL [facility] Urea nitrogen/Creatinine [Mass ratio] 14 mg/mg [facility] Anion gap [Moles/Vol] 12 mmol/L Normal 7-17 [facility] Comment on above: Performed By: #### NATHANIEL RAMÍREZ ####[facility] (DEFAULT)[address] [place] [address] Chloride [Moles/Vol] 107 mmol/L Normal 98-108 [facility] Comment on above: Performed By: ###NATHANIEL HERNANDEZ ####[facility] (DEFAULT)[address] [place] [address] CO2 [Moles/Vol] 26 mmol/L Normal 21-31 [facility] Comment on above: Performed By: #### NATHANIEL RAMÍREZ ####[facility] (DEFAULT)[address] [place] [address] Creatinine [Mass/Vol] 1.11 mg/dL Normal 0.70-1.30 [facility] Comment on above: Performed By: #### NATHANIEL RAMÍREZ ####U [facility] (DEFAULT)[address] [place] [address] GFR/1.73 sq M.predicted among non-blacks MDRD (S/P/Bld) [Vol rate/Area] 80 mL/min/{1.73_m2} Normal >=60 [facility] Comment on above: Result Comment: Repo rted eGFR is based on the CKD-EPI 2020 equation using creatinine, age, and sex. Performed By: #### Rod BLOOM CHM7 ####U [facility] (DEFAULT)[address] [place] [address] Glucose [Mass/Vol] 93 mg/dL Normal 70-99 [facility] Comment on above: Performed By: #### Rod BLOOM CHM7 ####U [facility] (DEFAULT)[address] [place] [address] Osmolality [Osmolality] 295 mosm/kg Normal 278-305 [facility] Comment on above: Performed By: #### Rod BLOOM CHM7 ####[facility] (DEFAULT)[address] [place] [address] Potassium [Moles/Vol] 3.9 mmol/L Normal 3.5-5.0 [facility] Comment on above: Performed By: #### Rod BLOOM CHM7 ####[facility] (DEFAULT)[address] [place] [address] Sodium [Moles/Vol] 141 mmol/L Normal 135-145 [facility] Comment on above: Performed By: #### Rod BLOOM CHM7 ####[facility] (DEFAULT)[address] [place] [address] Urea nitrogen [Mass/Vol] 15 mg/dL Normal 7-25 [facility] Comment on above: Performed By: #### Rod BLOOM CHM7 ####[facility] (DEFAULT)[address] [place] [address] Urea nitrogen/Creatinine [Mass ratio] 14 mg/mg Normal [facility] Comment on above: Performed By: #### M [facility] ####[facility] (DEFAULT)[address] [place] [address] Cardiac catheterization stud yOrdered By: Kelvin Donohue on 01-21-2024 Body surface area Derived from formula 2.08 m2 [facility] Work Phone: [facility] Work Phone: Cardiac catheterization stud [...] with fistula occlusion Kelvin Donohue MD, MPH [facility]. Section of Advanced Heart Failure and Transplantation Division of Cardiovascular Diseases [email or web address] [email or web address] INVASIVE CARDIOVASCULAR PROC EDUREon 01-21-2024 INVASIVE CARDIOVASCULAR PROCEDURE Normal [facility] MAGNESIUMon 01-21-2024 Interpretation and review of laboratory results Abnormal [facility] Magnesium [Mass/Vol] 1.5 mg/dL Low 1.6 - 2 .6 mg/dL [facility] Magnesium [Mass/Vol] 1.5 mg/dL Low 1.6-2.6 [facility] Comment on above: Performed By: #### M [facility] ####[facility] (DEFAULT)[address] [place] [address] No Panel Informationon 01-21 [facility] TACROLIMUS LEVEL, TROUGH (IL E DRUG LEVEL)on 01-21-2024 Interpretation and review of laboratory results Normal [facility] Tacrolimus (Bld) [Mass/Vol] 7.2 ng/mL Bone Marrow Transplant: 4.0-12.0, Therapeutic: 5.0-15.0 [facility] Method performed is a chemiluminescent microparticle immunoasssay on the [employer] Tender i2000. The range is based on experience at [facility] and users should be aware that target concentrations vary widely depending on concomitant therapy, time post-transplant, and desired degree of immunosuppression. [facility] Tacrolimus, Trough 7.2 ng/mL Normal Bone Susana ow Transplant: 4.0-12.0, Therapeutic: 5.0-15.0 [facility] Comment on above: Order Comment: Pleas e draw at specified interval PRIOR to dose. Do not hold dose to wait for level. Specimens batched twice per day, (M-F) and once per day weekendsMethod performed is a chemiluminescent microparticle immunoasssay on the [employer] i2000.The range is based on experience at [facility] and users should be aware that target concentrations vary widely depending on concomitant therapy, time post-transplant, and desired degree of immunosuppression. Performed By: #### T ACRO ####[facility] (DEFAULT)[address] [place] [address] CBC,PLATELETSon 01-20-2024 Erythrocyte distribution width (RBC) [Ratio] 13.8 % 10.9 - 14.3 % [facility] Hematocrit (Bld) [Volume fraction] 38.9 % Low 39.6 - 48.8 % [facility] Hemoglobin (Bld) [Mass/Vol] 12.5 g/dL Low 13.4 - 16.8 g/dL [facility] Interpretation and review of laboratory results Abnormal [facility] MCH (RBC) [Entitic mass] 28.0 pg 26.1 - 33.3 pg [facility] MCHC (RBC) [Mass/Vol] 32.1 g/dL 31.9 - 36.5 g/dL [facility] MCV (RBC) [Entitic vol] 87.2 fL 79.0 - 94.5 fL [facility] Platelet mean volume (Bld) [Entitic vol] 10.2 fL 8.7 - 12.3 fL [facility] Platelets (Bld) [#/Vol] 166 10*3/uL 146 - 337 K/uL [facility] RBC (Bld) [#/Vol] 4.46 10*6/uL [facility] WBC (Bld) [#/Vol] 3.79 10*3/uL 3.73 - 10. 10 K/uL [facility] Hematocrit (Bld) [Volume fraction] 38.9 % Low 39.6-48.8 [facility] Comment on above: Performed By: #### H [facility] ####[facility] (DEFAULT)[address] [place] [address] Hemoglobin (Bld) [Mass/Vol] 12.5 g/dL Low 13.4-16.8 [facility] Comment on above: Performed By: #### H EMO ####[facility] (DEFAULT)[address] [place] [address] MCV (RBC) [Entitic vol] 87.2 fL Normal 79.0-94.5 [facility] Comment on above: Performed By: #### H EMO ####[facility] (DEFAULT)[address] [place] [address] Mean Cell Hgb 28.0 pg Normal 26.1-33.3 [facility] Comment on above: Performed By: #### H EMO ####[facility] (DEFAULT)[address] [place] [address] Mean Cell Hgb Conc 32.1 g/dL Normal 31.9-36.5 [facility] Comment on above: Performed By: #### H EMO ####[facility] (DEFAULT)[address] [place] [address] Platelet mean volume (Bld) [Entitic vol] 10.2 fL Normal 8.7-12.3 [facility] Comment on above: Performed By: #### H EMO ####[facility] (DEFAULT)[address] [place] [address] Platelets (Bld) [#/Vol] 166 10*3/uL Normal 146-337 [facility] Comment on above: Performed By: #### H EMO ####[facility] (DEFAULT)[address] [place] [address] RBC (Bld) [#/Vol] 4.46 10*6/uL Normal 4.38-5.83 [facility] Comment on above: Performed By: #### H EMO ####[facility] (DEFAULT)[address] [place] [address] RBC Distribution 13.8 % Normal 10.9-14.3 [facility] Comment on above: Performed By: #### H EMO ####[facility] (DEFAULT)[address] [place] [address] WBC (Bld) [#/Vol] 3.79 10*3/uL Normal 3.73-10.10 [facility] Comment on above: Performed By: #### H EMO ####[facility] (DEFAULT)[address] [place] [address] CHEM 7 (LYTES,BUN,CREA,GLUC) on 01-20-2024 Anion gap [Moles/Vol] 12 mmol/L 7 - 17 mmol/L [facility] Chloride [Moles/Vol] 105 mmol/L 98 - 10 8 mmol/L [facility] CO2 [Moles/Vol] 28 mmol/L 21 - 31 mmol/L [facility] Creatinine [Mass/Vol] 1.12 mg/dL 0.70 - 1.30 mg/dL [facility] eGFR, CKD-EPI, Male 79 - PINF [facility] Comment on above: Reported eGFR is bas ed on the CKD-EPI 2020 equation using creatinine, age, and sex. Glucose [Mass/Vol] 88 mg/dL 70 - 99 mg/dL [facility] Osmolality Calc [Osmolality] 294 [facility] Potassium [Moles/Vol] 3.8 mmol/L 3.5 - 5.0 mmol/L [facility] Sodium [Moles/Vol] 141 mmol/L 135 - 145 mmol/L [facility] Urea nitrogen [Mass/Vol] 15 mg/dL 7 - 25 mg/dL [facility] Urea nitrogen/Creatinine [Mass ratio] 13 mg/mg [facility] Anion gap [Moles/Vol] 12 mmol/L Normal 7-17 [facility] Comment on above: Performed By: #### TAVO RAMÍREZ, CHM7 ####[facility] (DEFAULT)[address] [place] [address] Chloride [Moles/Vol] 105 mmol/L Normal 98-108 [facility] Comment on above: Performed By: #### TAVO RAMÍREZ, CHM7 ####[facility] (DEFAULT)[address] [place] [address] CO2 [Moles/Vol] 28 mmol/L Normal 21-31 [facility] Comment on above: Performed By: #### TAVO RAMÍREZ, CHM7 ####[facility] (DEFAULT)[address] [place] [address] Creatinine [Mass/Vol] 1.12 mg/dL Normal 0.70-1.30 [facility] Comment on above: Performed By: #### TAVO ARMÍREZ, CHM7 ####[facility] (DEFAULT)[address] [place] [address] GFR/1.73 sq M.predicted among non-blacks MDRD (S/P/Bld) [Vol rate/Area] 79 mL/min/{1.73_m2} Normal >=60 [facility] Comment on above: Result Comment: Repo rted eGFR is based on the CKD-EPI 2020 equation using creatinine, age, and sex. Performed By: #### TAVO RAMÍREZ, CHM7 ####U [facility] (DEFAULT)[address] [place] [address] Glucose [Mass/Vol] 88 mg/dL Normal 70-99 [facility] Comment on above: Performed By: #### TAVO RAMÍREZ, CHM7 ####[facility] (DEFAULT)[address] [place] [address] Osmolality [Osmolality] 294 mosm/kg Normal 278-305 [facility] Comment on above: Performed By: #### TAVO RAMÍREZ, CHM7 ####U [facility] (DEFAULT)[address] [place] [address] Potassium [Moles/Vol] 3.8 mmol/L Normal 3.5-5.0 [facility] Comment on above: Performed By: #### TAVO RAMÍREZ, CHM7 ####[facility] (DEFAULT)[address] [place] [address] Sodium [Moles/Vol] 141 mmol/L Normal 135-145 [facility] Comment on above: Performed By: #### TAVO RAMÍREZ, CHM7 ####U [facility] (DEFAULT)[address] [place] [address] Urea nitrogen [Mass/Vol] 15 mg/dL Normal 7-25 [facility] Comment on above: Performed By: #### TAVO RAMÍREZ, CHM7 ####[facility] (DEFAULT)[address] [place] [address] Urea nitrogen/Creatinine [Mass ratio] 13 mg/mg Normal [facility] Comment on above: Performed By: #### M , [facility], CHM7 ####[facility] (DEFAULT)[address] [place] [address] Cardiac catheterization stud yon 01-20-2024 [facility] Radiology Study observation (narrative) [facility] Radiology Study observation (narrative) [facility] EBV BY PCR, QUANTITATIVE,BLO ODOrdered By: Charlotte Jensen on 01-20-2024 EBV DNA ESTELITA+probe (Unsp spec) [#/Vol] NINF [facility] Interpretation and review of laboratory results Normal [facility] This test was perfor med using a real time PCR assay. The dynamic range for this assay is 1000-5,000,000 IU/mL. A result <1000 IU/mL does not rule out the presence of EBV DNA in quantities below the sensitivity of this assay. This test was developed and its performance characteristics determined by [facility]. It has not been cleared or approved by the FDA. The laboratory is regulated under CLIA as qualified to perform high-complexity testing. This test is used for clinical purposes. It should not be regarded as investigational or for research. [facility] HEPATIC FUNCTION PANELon Albumin [Mass/Vol] 3.7 g/dL 3.5 - 5.0 g/dL [facility] ALP [Catalytic activity/Vol] 73 U/L 32 - 126 U/L [facility] ALT [Catalytic activity/Vol] 12 U/L 10 - 52 U/L [facility] AST [Catalytic activity/Vol] 19 U/L 10 - 39 U/L [facility] Bilirubin [Mass/Vol] 2.1 mg/dL High NINF - 1.5 mg/dL [facility] Bilirubin.direct [Mass/Vol] 0.5 mg/dL High NINF - 0.3 mg/dL [facility] Interpretation and review of laboratory results Abnormal [facility] Protein [Mass/Vol] 6.1 g/dL Low 6.4 - 8.3 g/dL [facility] Albumin [Mass/Vol] 3.7 g/dL Normal 3.5-5.0 [facility] Comment on above: Performed By: #### M GO, HFP, CHM7 ####[facility] (DEFAULT)[address] [place] [address] ALP [Catalytic activity/Vol] 73 U/L Normal 32-126 [facility] Comment on above: Performed By: #### M GO, HFP, CHM7 ####U [facility] (DEFAULT)[address] [place] [address] ALT [Catalytic activity/Vol] 12 U/L Normal 10-52 [facility] Comment on above: Performed By: #### M GO, HFP, CHM7 ####[facility] (DEFAULT)[address] [place] [address] AST [Catalytic activity/Vol] 19 U/L Normal 10-39 [facility] Comment on above: Performed By: #### M GO, HFP, CHM7 ####[facility] (DEFAULT)[address] [place] [address] Bilirubin [Mass/Vol] 2.1 mg/dL High <1.5 [facility] Comment on above: Performed By: #### M GO, HFP, CHM7 ####[facility] (DEFAULT)[address] [place] [address] Bilirubin.indirect [Mass/Vol] 0.5 mg/dL High <0.3 [facility] Comment on above: Performed By: #### M GO, HFP, CHM7 ####[facility] (DEFAULT)[address] [place] [address] Protein [Mass/Vol] 6.1 g/dL Low 6.4-8.3 [facility] Comment on above: Performed By: #### M GO, HFP, CHM7 ####[facility] (DEFAULT)[address] [place] [address] ITRACONAZOLE LEVELon 024 Hydroxyitraconazole 7.6 mcg/mL Normal [facility] Comment on above: Order Comment: Pleas e draw level at specified interval PRIOR to dose. Result Comment: ---- REFERENCE VALUE No therapeutic range established; activity and serumconcentration are similar to parent drug. ADDITIONAL INFORMATION This test was developed and its performance characteristicsdetermined by [facility] in a manner consistent with CLIArequirements. This test has not been cleared or approved bythe U.S. Food and Drug Administration.Test Performed by:[address] Director: Rosendo Bose M.D. Ph.D.; CLIA# [id number] Performed By: #### Y ITCON ####U [facility] (DEFAULT)[address] [place] [address] Itraconazole 6.0 mcg/mL Normal [facility] Comment on above: Order Comment: Pleas e draw level at specified interval PRIOR to dose. Result Comment: ---- REFERENCE VALUE-------------------------->0.5 (localized infection), >1.0 (systemic infection) Performed By: #### Y ITCON ####[facility] (DEFAULT)[address] [place] [address] MAGNESIUMon 01-20-2024 Interpretation and review of laboratory results Normal [facility] Magnesium [Mass/Vol] 1.6 mg/dL 1.6 - 2 .6 mg/dL [facility] Magnesium [Mass/Vol] 1.6 mg/dL Normal 1.6-2.6 [facility] Comment on above: Performed By: #### M MERLE, [facility], CHM7 ####[facility] (DEFAULT)[address] [place] [address] No Panel Informationon 01-20 [facility] POCT CO-OXIMETRYon Hemoglobin (Bld) [Mass/Vol] 12.8 g/dL Low 13.4 - 16.8 g/dL [facility] Interpretation and review of laboratory results Abnormal [facility] Oxyhemoglobin 69 % Low 94 - 98 % [facility] Ordering physician notified. Test performed at address of the patient encounter. [facility] Hemoglobin (Bld) [Mass/Vol] 13.3 g/dL Low 13.4 - 16.8 g/dL [facility] Interpretation and review of laboratory results Abnormal [facility] Oxyhemoglobin 69 % Low 94 - 98 % [facility] Ordering physician notified. Test performed at address of the patient encounter. [facility] PT,INR,PTTon 01-20-2024 aPTT Coag (PPP) [Time] 30.6 s [facility] INR Coag (Bld) [Relative time] 1.2 {INR} High 0.9 - 1.1 [facility] Interpretation and review of laboratory results Abnormal [facility] PT Coag (PPP) [Time] 15.5 s High [facility] aPTT Coag (Bld) [Time] 30.6 s Normal 24.0-34.3 [facility] Comment on above: Performed By: #### P TPTT ####[facility] (DEFAULT)[address] [place] [address] INR Coag (PPP) [Relative time] 1.2 {INR} High 0.9-1.1 [facility] Comment on above: Performed By: #### P TPTT ####[facility] (DEFAULT)[address] [place] [address] PT Coag (PPP) [Time] 15.5 s High 11.9-14.2 [facility] Comment on above: Performed By: #### P TPTT ####[facility] (DEFAULT)[address] [place] [address] TACROLIMUS LEVEL, TROUGH (IL E DRUG LEVEL)Ordered By: Yanira Marcum on 01-20-2024 Interpretation and review of laboratory results Normal [facility] Tacrolimus (Bld) [Mass/Vol] 7.7 ng/mL Bone Marrow Transplant: 4.0-12.0, Therapeutic: 5.0-15.0 [facility] Method performed is a chemiluminescent microparticle immunoasssay on the [employer] i2000. The range is based on experience at [facility] and users should be aware that target concentrations vary widely depending on concomitant therapy, time post-transplant, and desired degree of immunosuppression. [facility] TACROLIMUS LEVEL, TROUGH (IL E DRUG LEVEL)on 01-20-2024 Tacrolimus, Trough 7.7 ng/mL Normal Bone Susana ow Transplant: 4.0-12.0, Therapeutic: 5.0-15.0 [facility] Comment on above: Order Comment: Pleas e draw at specified interval PRIOR to dose. Do not hold dose to wait for level. Specimens batched twice per day, (M-) and once per day weekendsMethod performed is a chemiluminescent microparticle immunoasssay on the [employer]ender i2000.The range is based on experience at [facility] and users should be aware that target concentrations vary widely depending on concomitant therapy, time post-transplant, and desired degree of immunosuppression. Performed By: #### T ACRO ####[facility] (DEFAULT)[address] [place] [address] CBC,PLATELETSon 01-19-2024 Erythrocyte distribution width (RBC) [Ratio] 13.9 % 10.9 - 14.3 % [facility] Hematocrit (Bld) [Volume fraction] 37.5 % Low 39.6 - 48.8 % [facility] Hemoglobin (Bld) [Mass/Vol] 12.1 g/dL Low 13.4 - 16.8 g/dL [facility] Interpretation and review of laboratory results Abnormal [facility] MCH (RBC) [Entitic mass] 28.3 pg 26.1 - 33.3 pg [facility] MCHC (RBC) [Mass/Vol] 32.3 g/dL 31.9 - 36.5 g/dL [facility] MCV (RBC) [Entitic vol] 87.8 fL 79.0 - 94.5 fL [facility] Platelet mean volume (Bld) [Entitic vol] 10.4 fL 8.7 - 12.3 fL [facility] Platelets (Bld) [#/Vol] 163 10*3/uL 146 - 337 K/uL [facility] RBC (Bld) [#/Vol] 4.27 10*6/uL Low [facility] WBC (Bld) [#/Vol] 3.69 10*3/uL Low 3.73 - 10. 10 K/uL [facility] Hematocrit (Bld) [Volume fraction] 37.5 % Low 39.6-48.8 [facility] Comment on above: Performed By: #### [facility] ####[facility] (DEFAULT)[address] [place] [address] Hemoglobin (Bld) [Mass/Vol] 12.1 g/dL Low 13.4-16.8 [facility] Comment on above: Performed By: #### [facility] ####[facility] (DEFAULT)[address] [place] [address] MCV (RBC) [Entitic vol] 87.8 fL Normal 79.0-94.5 [facility] Comment on above: Performed By: #### [facility] ####[facility] (DEFAULT)[address] [place] [address] Mean Cell Hgb 28.3 pg Normal 26.1-33.3 [facility] Comment on above: Performed By: #### H EMOGC ####[facility] (DEFAULT)[address] [place] [address] Mean Cell Hgb Conc 32.3 g/dL Normal 31.9-36.5 [facility] Comment on above: Performed By: #### H EMOGC ####[facility] (DEFAULT)[address] [place] [address] Platelet mean volume (Bld) [Entitic vol] 10.4 fL Normal 8.7-12.3 [facility] Comment on above: Performed By: #### H EMOGC ####[facility] (DEFAULT)[address] [place] [address] Platelets (Bld) [#/Vol] 163 10*3/uL Normal 146-337 [facility] Comment on above: Performed By: #### H EMOGC ####[facility] (DEFAULT)[address] [place] [address] RBC (Bld) [#/Vol] 4.27 10*6/uL Low 4.38-5.83 [facility] Comment on above: Performed By: #### H EMOGC ####[facility] (DEFAULT)[address] [place] [address] RBC Distribution 13.9 % Normal 10.9-14.3 [facility] Comment on above: Performed By: #### H EMOGC ####[facility] (DEFAULT)[address] [place] [address] WBC (Bld) [#/Vol] 3.69 10*3/uL Low 3.73-10.10 [facility] Comment on above: Performed By: #### H EMOGC ####[facility] (DEFAULT)[address] [place] [address] CHEM 7 (LYTES,BUN,CREA,GLUC) on 01-19-2024 Anion gap [Moles/Vol] 14 mmol/L 7 - 17 mmol/L [facility] Chloride [Moles/Vol] 106 mmol/L 98 - 10 8 mmol/L [facility] CO2 [Moles/Vol] 24 mmol/L 21 - 31 mmol/L [facility] Creatinine [Mass/Vol] 1.13 mg/dL 0.70 - 1.30 mg/dL [facility] eGFR, CKD-EPI, Male 78 - PINF [facility] Comment on above: Reported eGFR is bas ed on the CKD-EPI 2020 equation using creatinine, age, and sex. Glucose [Mass/Vol] 86 mg/dL 70 - 99 mg/dL [facility] Osmolality Calc [Osmolality] 293 [facility] Potassium [Moles/Vol] 3.8 mmol/L 3.5 - 5.0 mmol/L [facility] Sodium [Moles/Vol] 140 mmol/L 135 - 145 mmol/L [facility] Urea nitrogen [Mass/Vol] 16 mg/dL 7 - 25 mg/dL [facility] Urea nitrogen/Creatinine [Mass ratio] 14 mg/mg [facility] Anion gap [Moles/Vol] 14 mmol/L Normal 7-17 [facility] Comment on above: Performed By: #### Rod BLOOM CHM7 ####[facility] (DEFAULT)[address] [place] [address] Chloride [Moles/Vol] 106 mmol/L Normal 98-108 [facility] Comment on above: Performed By: #### TJ RAMÍREZ7 ####[facility] (DEFAULT)[address] [place] [address] CO2 [Moles/Vol] 24 mmol/L Normal 21-31 [facility] Comment on above: Performed By: #### Rod BLOOM CHM7 ####[facility] (DEFAULT)[address] [place] [address] Creatinine [Mass/Vol] 1.13 mg/dL Normal 0.70-1.30 [facility] Comment on above: Performed By: #### Rod BLOOM CHM7 ####U [facility] (DEFAULT)[address] [place] [address] GFR/1.73 sq M.predicted among non-blacks MDRD (S/P/Bld) [Vol rate/Area] 78 mL/min/{1.73_m2} Normal >=60 [facility] Comment on above: Result Comment: Repo rted eGFR is based on the CKD-EPI 2020 equation using creatinine, age, and sex. Performed By: #### TJ RAMÍREZ7 ####U [facility] (DEFAULT)[address] [place] [address] Glucose [Mass/Vol] 86 mg/dL Normal 70-99 [facility] Comment on above: Performed By: #### TJ RAMÍREZ7 ####Lucius [facility] (DEFAULT)[address] [place] [address] Osmolality [Osmolality] 293 mosm/kg Normal 278-305 [facility] Comment on above: Performed By: #### Rod BLOOM CHM7 ####U [facility] (DEFAULT)[address] [place], [place] [address], [place] [address] Potassium [Moles/Vol] 3.8 mmol/L Normal 3.5-5.0 [facility] Comment on above: Performed By: #### Rod BLOOM CHM7 ####[facility] (DEFAULT)[address] [place] [address] Sodium [Moles/Vol] 140 mmol/L Normal 135-145 [facility] Comment on above: Performed By: #### Rod BLOOM CHM7 ####U [facility] (DEFAULT)[address] [place] [address] Urea nitrogen [Mass/Vol] 16 mg/dL Normal 7-25 [facility] Comment on above: Performed By: #### Rod BLOOM CHM7 ####[facility] (DEFAULT)[address] [place] [address] Urea nitrogen/Creatinine [Mass ratio] 14 mg/mg Normal [facility] Comment on above: Performed By: #### M HELEN BLOOM7 ####[facility] (DEFAULT)[address] [place] [address] EBV BY PCR, QUANTITATIVE,BLO ODon 01-19-2024 Ebv By Pcr, Quant, Blood <1000 Normal <1000 [facility] Comment on above: Order Comment: This test was performed using a real time PCR assay. The dynamic range for this assay is 1000-5,000,000 IU/mL. A result <1000 IU/mL does not rule out the presence of EBV DNA in quantities below the sensitivity of this assay. This test was developed and its performance characteristics determined by [facility] at [facility]. It has not been cleared or approved by the FDA. The laboratory is regulated under CLIA as qualified to perform high-complexity testing. This test is used for clinical purposes. It should not be regarded as investigational or for research. Performed By: #### E BVPCR ####[facility] (DEFAULT)[address] [address] HISTOPLASMA AND BLASTOMYCES ANTIGEN, ENZYME IMMUNOASSAY, SERMon 01-19-2024 Histoplasma/Blastomy antonia Ag Result Not detected Not Detected [facility] Comment on above: No antigen from Hist oplasma or Blastomyces detected. False negative results may occur depending on extent of disease, and/or site of infection. Repeat testing on a new specimen if clinically indicated. Histoplasma/Blastomy antonia Ag Value Not detected ng/mL [facility] Comment on above: ADDITIONAL INFORMATION This test was developed and its performance characteristics determined by [facility] in a manner consistent with CLIA requirements. This test has not been cleared or approved by the U.S. Food and Drug Administration. Test Performed by: [facility] - [address] [address] Shell Coremaker: Rosendo Bose M.D. Ph.D.; IA# [id number] [facility] MAGNESIUMon 01-19-2024 Interpretation and review of laboratory results Normal [facility] Magnesium [Mass/Vol] 1.8 mg/dL 1.6 - 2 .6 mg/dL [facility] Magnesium [Mass/Vol] 1.8 mg/dL Normal 1.6-2.6 [facility] Comment on above: Performed By: #### M HELEN BLOOM7 ####[facility] (DEFAULT)[address] [place] [address] No Panel Informationon 01-19 [facility] TACROLIMUS LEVEL, TROUGH (IL E DRUG LEVEL)Ordered By: Raymundo Mehta on 01-19-2024 Interpretation and review of laboratory results Normal [facility] Tacrolimus (Bld) [Mass/Vol] 6.8 ng/mL Bone Marrow Transplant: 4.0-12.0, Therapeutic: 5.0-15.0 [facility] Method performed is a chemiluminescent microparticle immunoasssay on the [employer] i2000. The range is based on experience at [facility] and users should be aware that target concentrations vary widely depending on concomitant therapy, time post-transplant, and desired degree of immunosuppression. [facility] TACROLIMUS LEVEL, TROUGH (IL E DRUG LEVEL)on 01-19-2024 Tacrolimus, Trough 6.8 ng/mL Normal Bone Susana ow Transplant: 4.0-12.0, Therapeutic: 5.0-15.0 [facility] Comment on above: Order Comment: Pleas e draw at specified interval PRIOR to dose. Do not hold dose to wait for level. Specimens batched twice per day, (M-F) and once per day weekendsMethod performed is a chemiluminescent microparticle immunoasssay on the [employer] Tender i2000.The range is based on experience at [facility] and users should be aware that target concentrations vary widely depending on concomitant therapy, time post-transplant, and desired degree of immunosuppression. Performed By: #### T ACRO ####[facility] (DEFAULT)[address] [place] [address] US AV fistulaOrdered By: Diana Reyes on 01-19-2024 [facility] Work Phone: US AV fistulaon 01-19-2024 Radiology Study observation (narrative) [facility] AFP TUMOR MARKEROrdered By: Francisca Alaniz on 01-18-2024 AFP.tumor marker [Mass/Vol] ng/mL NINF - 8.1 ng/mL [facility] Comment on above: This test was perfor med on the Narrative Immunoassay platform by [employer] which is a two-site sandwich chemiluminescent immunoassay. It is important to note that assays using different manufacturers and/or methods may not be comparable. Interpretation and review of laboratory results Normal [facility] CBC,PLATELETSon 01-18-2024 Erythrocyte distribution width (RBC) [Ratio] 13.9 % 10.9 - 14.3 % [facility] Hematocrit (Bld) [Volume fraction] 38.4 % Low 39.6 - 48.8 % [facility] Hemoglobin (Bld) [Mass/Vol] 12.1 g/dL Low 13.4 - 16.8 g/dL [facility] Interpretation and review of laboratory results Abnormal [facility] MCH (RBC) [Entitic mass] 27.8 pg 26.1 - 33.3 pg [facility] MCHC (RBC) [Mass/Vol] 31.5 g/dL Low 31.9 - 36.5 g/dL [facility] MCV (RBC) [Entitic vol] 88.3 fL 79.0 - 94.5 fL [facility] Platelet mean volume (Bld) [Entitic vol] 10.4 fL 8.7 - 12.3 fL [facility] Platelets (Bld) [#/Vol] 183 10*3/uL 146 - 337 K/uL [facility] RBC (Bld) [#/Vol] 4.35 10*6/uL Low [facility] WBC (Bld) [#/Vol] 3.66 10*3/uL Low 3.73 - 10. 10 K/uL [facility] Hematocrit (Bld) [Volume fraction] 38.4 % Low 39.6-48.8 [facility] Comment on above: Performed By: #### H EMOGC ####[facility] (DEFAULT)[address] [place] [address] Hemoglobin (Bld) [Mass/Vol] 12.1 g/dL Low 13.4-16.8 [facility] Comment on above: Performed By: #### H EMOGC ####[facility] (DEFAULT)[address] [place] [address] MCV (RBC) [Entitic vol] 88.3 fL Normal 79.0-94.5 [facility] Comment on above: Performed By: #### H EMOGC ####[facility] (DEFAULT)[address] [place] [address] Mean Cell Hgb 27.8 pg Normal 26.1-33.3 [facility] Comment on above: Performed By: #### H EMOGC ####[facility] (DEFAULT)[address] [place] [address] Mean Cell Hgb Conc 31.5 g/dL Low 31.9-36.5 [facility] Comment on above: Performed By: #### H EMOGC ####[facility] (DEFAULT)[address] [place] [address] Platelet mean volume (Bld) [Entitic vol] 10.4 fL Normal 8.7-12.3 [facility] Comment on above: Performed By: #### H EMOGC ####[facility] (DEFAULT)[address] [place] [address] Platelets (Bld) [#/Vol] 183 10*3/uL Normal 146-337 [facility] Comment on above: Performed By: #### H EMOGC ####[facility] (DEFAULT)[address] [place] [address] RBC (Bld) [#/Vol] 4.35 10*6/uL Low 4.38-5.83 [facility] Comment on above: Performed By: #### [facility] ####[facility] (DEFAULT)[address] [place] [address] RBC Distribution 13.9 % Normal 10.9-14.3 [facility] Comment on above: Performed By: #### [facility] ####[facility] (DEFAULT)[address] [place] [address] WBC (Bld) [#/Vol] 3.66 10*3/uL Low 3.73-10.10 [facility] Comment on above: Performed By: #### [facility] ####[facility] (DEFAULT)[address] [place] [address] CHEM 7 (LYTES,BUN,CREA,GLUC) on 01-18-2024 Anion gap [Moles/Vol] 11 mmol/L 7 - 17 mmol/L [facility] Chloride [Moles/Vol] 108 mmol/L 98 - 10 8 mmol/L [facility] CO2 [Moles/Vol] 26 mmol/L 21 - 31 mmol/L [facility] Creatinine [Mass/Vol] 1.00 mg/dL 0.70 - 1.30 mg/dL [facility] eGFR, CKD-EPI, Male - PINF [facility] Comment on above: Reported eGFR is bas ed on the CKD-EPI 2020 equation using creatinine, age, and sex. Glucose [Mass/Vol] 89 mg/dL 70 - 99 mg/dL [facility] Osmolality Calc [Osmolality] 295 [facility] Potassium [Moles/Vol] 3.9 mmol/L 3.5 - 5.0 mmol/L [facility] Sodium [Moles/Vol] 141 mmol/L 135 - 145 mmol/L [facility] Urea nitrogen [Mass/Vol] 16 mg/dL 7 - 25 mg/dL [facility] Urea nitrogen/Creatinine [Mass ratio] 16 mg/mg [facility] Anion gap [Moles/Vol] 11 mmol/L Normal 7-17 [facility] Comment on above: Performed By: #### M GO, CHM7, HFP, TSHQR ####U [facility] (DEFAULT)[address] [place] [address] Chloride [Moles/Vol] 108 mmol/L Normal 98-108 [facility] Comment on above: Performed By: #### M GO, CHM7, HFP, TSHQR ####U [facility] (DEFAULT)[address] [place] [address] CO2 [Moles/Vol] 26 mmol/L Normal 21-31 [facility] Comment on above: Performed By: #### M GO, CHM7, HFP, TSHQR ####[facility] (DEFAULT)[address] [place] [address] Creatinine [Mass/Vol] 1.00 mg/dL Normal 0.70-1.30 [facility] Comment on above: Performed By: #### M GO, CHM7, HFP, TSHQR ####U [facility] (DEFAULT)[address] [place] [address] eGFR, CKD-EPI, Male > Normal >=60 [facility] Comment on above: Result Comment: Repo rted eGFR is based on the CKD-EPI 2020 equation using creatinine, age, and sex. Performed By: #### M GO, CHM7, HFP, TSHQR ####U [facility] (DEFAULT)[address] [place] [address] Glucose [Mass/Vol] 89 mg/dL Normal 70-99 [facility] Comment on above: Performed By: #### M GO, CHM7, HFP, TSHQR ####[facility] (DEFAULT)[address] [place] [address] Osmolality [Osmolality] 295 mosm/kg Normal 278-305 [facility] Comment on above: Performed By: #### M GO, CHM7, HFP, TSHQR ####U [facility] (DEFAULT)[address] [place] [address] Potassium [Moles/Vol] 3.9 mmol/L Normal 3.5-5.0 [facility] Comment on above: Performed By: #### M GO, CHM7, HFP, TSHQR ####[facility] (DEFAULT)[address] [place] [address] Sodium [Moles/Vol] 141 mmol/L Normal 135-145 [facility] [facility] Comment on above: Performed By: #### M GO, CHM7, HFP, TSHQR ####U [facility] (DEFAULT)[address] [place] [address] Urea nitrogen [Mass/Vol] 16 mg/dL Normal 7-25 [facility] Comment on above: Performed By: #### M GO, CHM7, HFP, TSHQR ####[facility] (DEFAULT)[address] [facility] [place] [address] Urea nitrogen/Creatinine [Mass ratio] 16 mg/mg Normal [facility] Comment on above: Performed By: #### M GO, CHM7, HFP, TSHQR ####[facility] (DEFAULT)[address] [place] [address] Cardiac echo study Procedure Ordered By: Gian Carlos on 01-18-2024 Ao ASC index 1.63 cm/m2 [facility] Work Phone: Ao peak meliton 1.46 m/s [facility] Work Phone: Ao SOV index 1.56 cm/m2 [facility] Work Phone: Ao STJ index 1.25 cm/m2 [facility] Work Phone: Ao VTI 35.74 cm [facility] Work Phone: Ascending [facility] 3.39 [facility]: AV LVOT peak gradient 4 mmHg [facility] Work Phone: AV mean gradient 5 mmHg [facility] Work Phone: [phone] AV peak gradient 9 mmHG [facility] Work Phone: AV valve area 3.09 cm2 [facility] Work Phone: AV Velocity Ratio 0.73 [facility] Work Phone: VEGA (continuity Vmax) 3.01 cm2 [facility] Work Phone: VEGA (continuity VTI) 3.09 cm2 [facility] Work Phone: VEGA index (continuity Vmax) 1.45 m/s [facility] Work Phone: VEGA index (continuity VTI) 1.49 cm2/m2 [facility] Work Phone: Avg e' pk meliton 0.07 m/s [facility] Work Phone: Avg E/e' ratio 19.45 [facility] Work Phone: Body surface area Derived from formula 2.08 m2 [facility] Work Phone: BP EF 62 % [facility] Work Phone: DI (Vmax) 0.73 [facility] Work Phone: DI (VTI) 0.74 m/2 [facility] Work Phone: E wave decelartion time 180.38 msec [facility] Work Phone: e' lateral pk meliton 0.0789 m[facility]s [facility] Work Phone: e' lateral pk meliton 0.08 m/s [facility] Work Phone: e' septal pk meliton 0.0653 m/s [facility] Work Phone: e' septal pk meliton 0.07 m/s [facility] Work Phone: E/A ratio 2.67 [facility] Work Phone: E/e' lateral ratio 17.62 [facility] Work Phone: E/e' septal ratio 21.29 [facility] Work Phone: EF SP 2CH 66 [facility] Work Phone: EF SP 4CH 58 [facility] Work Phone: FS 28 % 28 - 44 % [facility]: IVC ostium 2.30 [facility] Work [facility]: IVS 1.11 cm [facility] Work Phone: LA AREA 2CH 24.36 cm2 [facility] Work Phone: LA area 4CH 20.36 cm2 [facility] Work Phone: LA ESV BP (MOD) 64 mL [facility] Work Phone: LA ESV BP (MOD) index 31 mL/m2 [facility] Work Phone: LA ESV SP 2CH (MOD) 76 mL [facility] Work Phone: LA ESV SP 4CH (MOD) 53 mL [facility] Work Phone: [phone] LV EDV BP 180 [facility] Work Phone: LV EDV SP 2CH 190 [facility] Work Phone: LV EDV SP 4CH 166 [facility] Work Phone: LV ESV BP 69 mL [facility] Work Phone: LV ESV SP 2CH 65 [facility] Work Phone: LV ESV SP 4CH 70 mL [facility] Work Phone: LV mass 254.73 g [facility] Work Phone: LV Mass Index 122.5 g/m2 [facility] Work Phone: [phone] LV RWT 0.42 [facility] Work Phone: LV stroke volume BP (ml) 111 mL [facility] Work Phone: LV stroke volume index BP 53.37 mL/m2 [facility] Work Phone: LVIDD 5.53 cm [facility] Work Phone: LVIDS 3.97 cm [facility] Work Phone: LVOT area 4.15 cm2 [facility] Work Phone: LVOT diameter 2.30 cm [facility] Work Phone: LVOT peak meliton 1.06 m/s [facility] Work Phone: LVOT peak VTI 26.61 cm [facility] Work Phone: LVOT stroke volume 111 cm3 [facility] Work Phone: LVOT stroke volume index 53.13 ml/m2 [facility] Work Phone: Mr max meliton 4.21 m[facility]s [facility]: MR VTI 134.50 [facility] Work Phone: MV mean gradient 3 [facility]: MV peak gradient 11 [facility] Work [facility]: MV pk A meliton 0.52 m/s [facility] Work Phone: MV pk E meliton 1.39 m/s [facility] Work Phone: MV stenosis pressure 1/2 time 58.56 ms [facility] Work Phone: MV valve area by continuity eq 2.93 cm2 [facility] Work Phone: MV valve area p 1/2 method 3.76 cm2 [facility] Work Phone: MV VTI 37.70 cm [facility] Work Phone: MVA (continuity VTI) 2.92 cm [facility] Work Phone: [facility] AV VTI RATIO PRE STRESS 0.74 [facility] Work Phone: [facility]SU ECHO LV BIPLANE SYSTOLIC VOLUME INDEX 33.17 mL/m2 [facility] Work Phone: OSU ECHO LV BP DIASTOLIC VOLUME INDEX 86.54 mL/m2 [facility] Work Phone: [facility] ECHO MR PEAK GRADIENT 70.94 mmHg [facility] Work Phone: PW 1.16 cm [facility] Work Phone: RA area 4CH (MOD) 14.50 cm2 [facility] Work Phone: RA vol index 4CH (MOD) 18.27 mL/m2 [facility] Work Phone: Right atrium volume 4 chamber method of disks 38 mL [facility] Work Phone: RV Area diastolic 33.20 cm2 [facility] Work Phone: RV Area systolic 21.30 cm2 [facility] Work Phone: RV basal diam 4.52 cm [facility] Work Phone: RV Fractional area change 35.8 % [facility] Work Phone: RV long diam 8.96 cm [facility] Work Phone: RV mid diam 3.70 cm [facility] Work Phone: RV S' 22.01 cm/s [facility] Work Phone: RVOT peak gradient 4 mmHg [facility] Work Phone: RVOT peak meliton 0.96 m/s [facility] Work Phone: RVOT peak VTI 20.86 cm [facility] Work Phone: Sinus 3.24 cm [facility] Work Phone: STJ 2.61 cm [facility] Work Phone: Stroke Volume 111 cm/mL [facility] Work Phone: Stroke volume index 53 [facility] Work Phone: TAPSE 2.19 cm [facility] Work Phone: [facility] Work Phone: Cardiac echo study [...] echocardiography study was performed. Imaging system used: [employer]. Indications Indications for study: shortness of breath. [facility] Radiology Study observation (narrative) [facility] HEPATIC FUNCTION PANELon Albumin [Mass/Vol] 3.5 g/dL 3.5 - 5.0 g/dL [facility] ALP [Catalytic activity/Vol] 70 U/L 32 - 126 U/L [facility] ALT [Catalytic activity/Vol] 8 U/L Low 10 - 52 U/L [facility] AST [Catalytic activity/Vol] 20 U/L 10 - 39 U/L [facility] Bilirubin [Mass/Vol] 1.7 mg/dL High NINF - 1.5 mg/dL [facility] Bilirubin.direct [Mass/Vol] 0.4 mg/dL High NINF - 0.3 mg/dL [facility] Protein [Mass/Vol] 6.0 g/dL Low 6.4 - 8.3 g/dL [facility] Albumin [Mass/Vol] 3.5 g/dL Normal 3.5-5.0 [facility] Comment on above: Performed By: #### M GO, CHM7, HFP, TSHQR ####[facility] (DEFAULT)[address] [place] [address] ALP [Catalytic activity/Vol] 70 U/L Normal 32-126 [facility] Comment on above: Performed By: #### M GO, CHM7, HFP, TSHQR ####[facility] (DEFAULT)[address] [place] [address] ALT [Catalytic activity/Vol] 8 U/L Low 10-52 [facility] Comment on above: Performed By: #### M GO, CHM7, HFP, TSHQR ####[facility] (DEFAULT)[address] [place] [address] AST [Catalytic activity/Vol] 20 U/L Normal 10-39 [facility] Comment on above: Performed By: #### M GO, CHM7, HFP, TSHQR ####[facility] (DEFAULT)[address] [place] [address] Bilirubin [Mass/Vol] 1.7 mg/dL High <1.5 [facility] Comment on above: Performed By: #### M GO, CHM7, HFP, TSHQR ####[facility] (DEFAULT)[address] [place] [address] Bilirubin.indirect [Mass/Vol] 0.4 mg/dL High <0.3 [facility] Comment on above: Performed By: #### M GO, CHM7, HFP, TSHQR ####[facility] (DEFAULT)[address] [place] [address] Protein [Mass/Vol] 6.0 g/dL Low 6.4-8.3 [facility] Comment on above: Performed By: #### M MERLE CHM7, HFP, TSHQR ####[facility] (DEFAULT)[address] [place] [address] MAGNESIUMon 01-18-2024 Magnesium [Mass/Vol] 1.5 mg/dL Low 1.6 - 2 .6 mg/dL [facility] Magnesium [Mass/Vol] 1.5 mg/dL Low 1.6-2.6 [facility] Comment on above: Performed By: #### M MERLE, CHM7, HFP, TSHQR ####[facility] (DEFAULT)[address] [place] [address] No Panel Informationon 01-18 Interpretation and review of laboratory results Abnormal [facility] PT,INR,PTTon 01-18-2024 aPTT Coag (PPP) [Time] 30.0 s [facility] INR Coag (Bld) [Relative time] 1.1 {INR} 0.9 - 1.1 [facility] Interpretation and review of laboratory results Abnormal [facility] PT Coag (PPP) [Time] 14.5 s High [facility] aPTT Coag (Bld) [Time] 30.0 s Normal 24.0-34.3 [facility] Comment on above: Performed By: #### P TPTT ####[facility] (DEFAULT)[address] [place] [address] INR Coag (PPP) [Relative time] 1.1 {INR} Normal 0.9-1.1 [facility] Comment on above: Performed By: #### P TPTT ####[facility] (DEFAULT)[address] [place] [address] PT Coag (PPP) [Time] 14.5 s High 11.9-14.2 [facility] Comment on above: Performed By: #### P TPTT ####[facility] (DEFAULT)[address] [place] [address] TSH W/FT4 REFLEXon 4 Interpretation and review of laboratory results Normal [facility] TSH Qn 2.660 m[IU]/L [facility] TSH 2.660 uIU/mL Normal 0.550-4.780 [facility] Comment on above: Performed By: #### M GO, CHM7, HFP, TSHQR ####[facility] (DEFAULT)[address] [place] [address] AFP TUMOR MARKERon 4 AFP Tumor Marker <2.2 Normal <8.1 [facility] Comment on above: Result Comment: This test was performed on the Narrative Immunoassay platform by [employer] which is a two-site sandwich chemiluminescent immunoassay. It is important to note that assays using different manufacturers and/or methods may not be comparable. Performed By: #### A FPTMR ####[facility] (DEFAULT)[address] [place] [address] DARYL AURIS SCREEN BY PCRO rdered By: Mynor Alejandro on 01-17-2024 Daryl auris Screen by PCR Not detected Not Detected [facility] Interpretation and review of laboratory results Normal [facility] This test was perfor med using a real-time PCR assay. This test was developed, and its performance characteristics determined by [facility]. It has not been cleared or approved by the FDA. The laboratory is regulated under CLIA as qualified to perform high-complexity testing. This test is used for clinical purposes. It should not be regarded as investigational or for research. [facility] CBC,PLATELETSon 01-17-2024 Erythrocyte distribution width (RBC) [Ratio] 14.0 % 10.9 - 14.3 % [facility] Hematocrit (Bld) [Volume fraction] 37.2 % Low 39.6 - 48.8 % [facility] Hemoglobin (Bld) [Mass/Vol] 12.0 g/dL Low 13.4 - 16.8 g/dL [facility] Interpretation and review of laboratory results Abnormal [facility] MCH (RBC) [Entitic mass] 27.9 pg 26.1 - 33.3 pg [facility] MCHC (RBC) [Mass/Vol] 32.3 g/dL 31.9 - 36.5 g/dL [facility] MCV (RBC) [Entitic vol] 86.5 fL 79.0 - 94.5 fL [facility] Platelet mean volume (Bld) [Entitic vol] 10.5 fL 8.7 - 12.3 fL [facility] Platelets (Bld) [#/Vol] 159 10*3/uL 146 - 337 K/uL [facility] RBC (Bld) [#/Vol] 4.30 10*6/uL Low [facility] WBC (Bld) [#/Vol] 3.69 10*3/uL Low 3.73 - 10. 10 K/uL [facility] Hematocrit (Bld) [Volume fraction] 37.2 % Low 39.6-48.8 [facility] Comment on above: Performed By: #### [facility] ####[facility] (DEFAULT)[address] [place] [address] Hemoglobin (Bld) [Mass/Vol] 12.0 g/dL Low 13.4-16.8 [facility] Comment on above: Performed By: #### [facility] ####[facility] (DEFAULT)[address] [place] [address] MCV (RBC) [Entitic vol] 86.5 fL Normal 79.0-94.5 [facility] Comment on above: Performed By: #### [facility] ####[facility] (DEFAULT)[address] [place] [address] Mean Cell Hgb 27.9 pg Normal 26.1-33.3 [facility] Comment on above: Performed By: #### H EMOGC ####U [facility] (DEFAULT)[address] [place] [address] Mean Cell Hgb Conc 32.3 g/dL Normal 31.9-36.5 [facility] Comment on above: Performed By: #### H EMOGC ####[facility] (DEFAULT)[address] [place] [address] Platelet mean volume (Bld) [Entitic vol] 10.5 fL Normal 8.7-12.3 [facility] Comment on above: Performed By: #### H EMOGC ####[facility] (DEFAULT)[address] [place] [address] Platelets (Bld) [#/Vol] 159 10*3/uL Normal 146-337 [facility] Comment on above: Performed By: #### H EMOGC ####[facility] (DEFAULT)[address] [place] [address] RBC (Bld) [#/Vol] 4.30 10*6/uL Low 4.38-5.83 [facility] Comment on above: Performed By: #### H EMOGC ####[facility] (DEFAULT)[address] [place] [address] RBC Distribution 14.0 % Normal 10.9-14.3 [facility] Comment on above: Performed By: #### H EMOGC ####[facility] (DEFAULT)[address] [place] [address] WBC (Bld) [#/Vol] 3.69 10*3/uL Low 3.73-10.10 [facility] Comment on above: Performed By: #### H EMOGC ####[facility] (DEFAULT)[address] [place] [address] CHEM 7 (LYTES,BUN,CREA,GLUC) on 01-17-2024 Anion gap [Moles/Vol] 13 mmol/L 7 - 17 mmol/L [facility] Chloride [Moles/Vol] 109 mmol/L High 98 - 10 8 mmol/L [facility] CO2 [Moles/Vol] 21 mmol/L 21 - 31 mmol/L [facility] Creatinine [Mass/Vol] 1.04 mg/dL 0.70 - 1.30 mg/dL [facility] eGFR, CKD-EPI, Male 86 - PINF [facility] Comment on above: Reported eGFR is bas ed on the CKD-EPI 2020 equation using creatinine, age, and sex. Glucose [Mass/Vol] 82 mg/dL 70 - 99 mg/dL [facility] Osmolality Calc [Osmolality] 292 [facility] Potassium [Moles/Vol] 4.4 mmol/L 3.5 - 5.0 mmol/L [facility] Sodium [Moles/Vol] 139 mmol/L 135 - 145 mmol/L [facility] Urea nitrogen [Mass/Vol] 17 mg/dL 7 - 25 mg/dL [facility] Urea nitrogen/Creatinine [Mass ratio] 16 mg/mg [facility] Anion gap [Moles/Vol] 13 mmol/L Normal 7-17 [facility] Comment on above: Performed By: #### C HM7, HFP, MGO ####[facility] (DEFAULT)[address] [place] [address] Chloride [Moles/Vol] 109 mmol/L High 98-108 [facility] Comment on above: Performed By: #### C HM7, HFP, MGO ####[facility] (DEFAULT)[address] [place] [address] CO2 [Moles/Vol] 21 mmol/L Normal 21-31 [facility] Comment on above: Performed By: #### C HM7, HFP, MGO ####[facility] (DEFAULT)[address] [place] [address] Creatinine [Mass/Vol] 1.04 mg/dL Normal 0.70-1.30 [facility] Comment on above: Performed By: #### C HM7, HFP, MGO ####U [facility] (DEFAULT)[address] [place] [address] GFR/1.73 sq M.predicted among non-blacks MDRD (S/P/Bld) [Vol rate/Area] 86 mL/min/{1.73_m2} Normal >=60 [facility] Comment on above: Result Comment: Repo rted eGFR is based on the CKD-EPI 2020 equation using creatinine, age, and sex. Performed By: #### C HM7, HFP, MGO ####U [facility] (DEFAULT)[address] [place] [address] Glucose [Mass/Vol] 82 mg/dL Normal 70-99 [facility] Comment on above: Performed By: #### C HM7, HFP, MGO ####[facility] (DEFAULT)[address] [place] [address] Osmolality [Osmolality] 292 mosm/kg Normal 278-305 [facility] Comment on above: Performed By: #### C HM7, HFP, MGO ####[facility] (DEFAULT)[address] [place] [address] Potassium [Moles/Vol] 4.4 mmol/L Normal 3.5-5.0 [facility] Comment on above: Performed By: #### C HM7, HFP, MGO ####[facility] (DEFAULT)[address] [place] [address] Sodium [Moles/Vol] 139 mmol/L Normal 135-145 [facility] Comment on above: Performed By: #### C HM7, HFP, MGO ####[facility] (DEFAULT)[address] [place] [address] Urea nitrogen [Mass/Vol] 17 mg/dL Normal 7-25 [facility] Comment on above: Performed By: #### C JASMYNE, TAVO, MGO ####[facility] (DEFAULT)[address] [place] [address] Urea nitrogen/Creatinine [Mass ratio] 16 mg/mg Normal [facility] Comment on above: Performed By: #### C JASMYNE, TAVO, MGO ####[facility] (DEFAULT)[address] [place] [address] CT ABDOMEN/PELVIS WITHOUT CO NTRASTon 01-17-2024 CT ABDOMEN/PELVIS WITHOUT CONTRAST Normal [facility] CT Abdomen and Pelvis WO con traston [...] unremarkable. Kidneys: Severe atrophy of the bilateral [place] kidney is without hydronephrosis. Right lower quadrant [...] unremarkable. Kidneys: Severe atrophy of the bilateral [place] kidney is without hydronephrosis. Right lower quadrant [...] the middle lobe. Trace left pleural effusion. [facility] Radiology Study observation (narrative) [facility] HEPATIC FUNCTION PANELon Albumin [Mass/Vol] 3.5 g/dL 3.5 - 5.0 g/dL [facility] ALP [Catalytic activity/Vol] 73 U/L 32 - 126 U/L [facility] ALT [Catalytic activity/Vol] 7 U/L Low 10 - 52 U/L [facility] AST [Catalytic activity/Vol] 25 U/L 10 - 39 U/L [facility] Bilirubin [Mass/Vol] 1.8 mg/dL High NINF - 1.5 mg/dL [facility] Bilirubin.direct [Mass/Vol] 0.3 mg/dL High NINF - 0.3 mg/dL [facility] Protein [Mass/Vol] 6.0 g/dL Low 6.4 - 8.3 g/dL [facility] Albumin [Mass/Vol] 3.5 g/dL Normal 3.5-5.0 [facility] Comment on above: Performed By: #### C HM7, HFP, MGO ####[facility] (DEFAULT)[address] [place] [address] ALP [Catalytic activity/Vol] 73 U/L Normal 32-126 [facility] Comment on above: Performed By: #### C HM7, HFP, MGO ####[facility] (DEFAULT)[address] [place] [address] ALT [Catalytic activity/Vol] 7 U/L Low 10-52 [facility] Comment on above: Performed By: #### C HM7, HFP, MGO ####[facility] (DEFAULT)[address] [facility] [place] [address] AST [Catalytic activity/Vol] 25 U/L Normal 10-39 [facility] Comment on above: Performed By: #### C HM7, HFP, MGO ####[facility] (DEFAULT)[address] [place] [address] Bilirubin [Mass/Vol] 1.8 mg/dL High <1.5 [facility] Comment on above: Performed By: #### C HM7, HFP, MGO ####[facility] (DEFAULT)[address] [place] [address] Bilirubin.indirect [Mass/Vol] 0.3 mg/dL High <0.3 [facility] Comment on above: Performed By: #### C HM7, TAVO, MGO ####[facility] (DEFAULT)[address] [place] [address] Protein [Mass/Vol] 6.0 g/dL Low 6.4-8.3 [facility] Comment on above: Performed By: #### C HM7, TAVO, MGO ####[facility] (DEFAULT)[address] [place] [address] HISTOPLASMA AND BLASTOMYCES ANTIGEN, ENZYME IMMUNOASSAY, SERMon 01-17-2024 Histoplasma/Blastomy [place] Ag Result Not detected Normal Not Detected [facility] Comment on above: Result Comment: No a ntigen from Histoplasma or Blastomyces detected. Falsenegative results may occur depending on extent of disease,and/or site of infection. Repeat testing on a new specimenif clinically indicated. Performed By: #### H CORAL ####[facility] (DEFAULT)[address] [place] [address] Histoplasma/Blastomy [place] Ag Value Not detected Normal [facility] Comment on above: Result Comment: ---- ADDITIONAL INFORMATION This test was developed and its performance characteristicsdetermined by [facility] in a manner consistent with CLIArequirements. This test has not been cleared or approved bythe U.S. Food and Drug Administration.Test Performed by:[facility] [place] [id number] Director: Rosendo Bose M.D. Ph.D.; CLIA# [id number] Performed By: #### H ILYAG ####[facility] (DEFAULT)[address] [place] [address] MAGNESIUMon 01-17-2024 Interpretation and review of laboratory results Normal [facility] Magnesium [Mass/Vol] 1.7 mg/dL 1.6 - 2 .6 mg/dL [facility] Magnesium [Mass/Vol] 1.7 mg/dL Normal 1.6-2.6 [facility] Comment on above: Performed By: #### C HM7, HFP, MGO ####[facility] (DEFAULT)[address] [place] [address] No Panel Informationon 01-17 Interpretation and review of laboratory results Abnormal [facility] PT,INR,PTTon 01-17-2024 aPTT Coag (PPP) [Time] 29.9 s [facility] INR Coag (Bld) [Relative time] 1.1 {INR} 0.9 - 1.1 [facility] Interpretation and review of laboratory results Abnormal [facility] PT Coag (PPP) [Time] 14.5 s High [facility] aPTT Coag (Bld) [Time] 29.9 s Normal 24.0-34.3 [facility] Comment on above: Performed By: #### P TPTT ####[facility] (DEFAULT)[address] [place] [address] INR Coag (PPP) [Relative time] 1.1 {INR} Normal 0.9-1.1 [facility] Comment on above: Performed By: #### P TPTT ####[facility] (DEFAULT)[address] [place] [address] PT Coag (PPP) [Time] 14.5 s High 11.9-14.2 [facility] Comment on above: Performed By: #### P TPTT ####[facility] (DEFAULT)[address] [place] [address] B-TYPE NATRIURETIC PEPTIDE ( BRAIN)on 01-16-2024 Interpretation and review of laboratory results Abnormal [facility] Natriuretic peptide B (Bld) [Mass/Vol] 212 pg/mL High 0 - 100 pg/mL [facility] Natriuretic peptide B (Bld) [Mass/Vol] 212 pg/mL High 0-100 [facility] Comment on above: Performed By: #### B ASSURANCE ASSISTANT ####[facility] (DEFAULT)[address] [place] [address] CALCIUMon 01-16-2024 Calcium [Mass/Vol] 8.5 mg/dL Low 8.6 - 10. 5 mg/dL [facility] Calcium [Mass/Vol] 8.5 mg/dL Low 8.6-10.5 [facility] Comment on above: Performed By: #### C A, IPB, MGO, CHM7, HFP ####[facility] (DEFAULT)[address] [place] [id number] DARYL AURIS SCREEN BY PCRo n 01-16-2024 Daryl auris Screen by PCR Not detected Normal Not Detected [facility] Comment on above: Order Comment: This test was performed using a real-time PCR assay. This test was developed, and its performance characteristics determined by The [facility] at [facility]. It has not been cleared or approved by the FDA. The laboratory is regulated under CLIA as qualified to perform high-complexity testing. This test is used for clinical purposes. It should not be regarded as investigational or for research. Performed By: #### C ANDIDA AURIS SCREEN BY PCR ####[facility] (DEFAULT)[address] [place] [address] CBC AND ELECTRONIC DIFFon Basophils (Bld) [#/Vol] K/uL 0.00 - 0.09 K/uL [facility] Basophils/100 WBC (Bld) 0.6 % [facility] Differential cell count method Nom (Bld) Electronic Differential [facility] Eosinophils (Bld) [#/Vol] 0.09 10*3/uL 0.00 - 0.48 K/uL [facility] Eosinophils/100 WBC (Bld) 2.5 % [facility] Erythrocyte distribution width (RBC) [Ratio] 14.0 % 10.9 - 14.3 % [facility] Hematocrit (Bld) [Volume fraction] 37.4 % Low 39.6 - 48.8 % [facility] Hemoglobin (Bld) [Mass/Vol] 12.1 g/dL Low 13.4 - 16.8 g/dL [facility] Immature granulocytes (Bld) [#/Vol] K/uL NINF - 0.07 K/uL [facility] Immature granulocytes/100 WBC (Bld) 0.3 % [facility] Interpretation and review of laboratory results Abnormal [facility] Lymphocytes (Bld) [#/Vol] 1.16 10*3/uL 0.83 - 3.57 K/uL [facility] Lymphocytes/100 WBC (Bld) 32.0 % [facility] MCH (RBC) [Entitic mass] 28.4 pg 26.1 - 33.3 pg [facility] MCHC (RBC) [Mass/Vol] 32.4 g/dL 31.9 - 36.5 g/dL [facility] MCV (RBC) [Entitic vol] 87.8 fL 79.0 - 94.5 fL [facility] Monocytes (Bld) [#/Vol] 0.43 10*3/uL 0.24 - 0.93 K/uL [facility] Monocytes/100 WBC (Bld) 11.9 % [facility] Neutrophils (Bld) [#/Vol] 1.91 10*3/uL 1.57 - 6.19 K/uL [facility] Nucleated RBC/100 WBC (Bld) [Ratio] 0.0 % [facility] Platelet mean volume (Bld) [Entitic vol] 10.1 fL 8.7 - 12.3 fL [facility] Platelets (Bld) [#/Vol] 155 10*3/uL 146 - 337 K/uL [facility] RBC (Bld) [#/Vol] 4.26 10*6/uL Low [facility] Segmented neutrophils/100 WBC (Bld) 52.7 % [facility] WBC (Bld) [#/Vol] 3.62 10*3/uL Low 3.73 - 10. 10 K/uL [facility] Abs Baso Auto < Normal 0.00-0.09 [facility] Comment on above: Performed By: #### L [id number] ####[facility] (DEFAULT)[address] [place] [address] Basophils/100 WBC (Bld) 0.6 % Normal [facility] Comment on above: Performed By: #### L [id number] ####[facility] (DEFAULT)[address] [place] [address] DIFF STATUS Electronic Differential Normal [facility] Comment on above: Performed By: #### L [id number] ####[facility] (DEFAULT)[address] [place] [address] Eosinophils (Bld) [#/Vol] 0.09 10*3/uL Normal 0.00-0.48 [facility] Comment on above: Performed By: #### L [id number] ####[facility] (DEFAULT)[address] [place] [address] Eosinophils/100 WBC (Bld) 2.5 % Normal [facility] Comment on above: Performed By: #### L [id number] ####[facility] (DEFAULT)[address] [place] [address] Hematocrit (Bld) [Volume fraction] 37.4 % Low 39.6-48.8 [facility] Comment on above: Performed By: #### L [id number] ####[facility] (DEFAULT)[address] [place] [address] Hemoglobin (Bld) [Mass/Vol] 12.1 g/dL Low 13.4-16.8 [facility] Comment on above: Performed By: #### L [id number] ####[facility] (DEFAULT)[address] [place] [address] Immature Grans % 0.3 % Normal [facility] Comment on above: Performed By: #### L [id number] ####[facility] (DEFAULT)[address] [place] [address] Immature Grans Absolute < Normal <=0.07 [facility] Comment on above: Performed By: #### L [id number] ####[facility] (DEFAULT)[address] [place] [address] Lymphocytes (Bld) [#/Vol] 1.16 10*3/uL Normal 0.83-3.57 [facility] Comment on above: Performed By: #### L [id number] ####[facility] (DEFAULT)[address] [place] [address] Lymphocytes/100 WBC (Bld) 32.0 % Normal [facility] Comment on above: Performed By: #### L [id number] ####[facility] (DEFAULT)[address] [place] [address] MCV (RBC) [Entitic vol] 87.8 fL Normal 79.0-94.5 [facility] Comment on above: Performed By: #### L [id number] ####[facility] (DEFAULT)[address] [place] [address] Mean Cell Hgb 28.4 pg Normal 26.1-33.3 [facility] Comment on above: Performed By: #### L [id number] ####[facility] (DEFAULT)[address] [place] [address] Mean Cell Hgb Conc 32.4 g/dL Normal 31.9-36.5 [facility] Comment on above: Performed By: #### L [id number] ####[facility] (DEFAULT)[address] [place] [address] Monocytes (Bld) [#/Vol] 0.43 10*3/uL Normal 0.24-0.93 [facility] Comment on above: Performed By: #### L [id number] ####[facility] (DEFAULT)[address] [place] [address] Monocytes/100 WBC (Bld) 11.9 % Normal [facility] Comment on above: Performed By: #### L [id number] ####[facility] (DEFAULT)[address] [place] [address] Nucleated RBC 0.0 /100 WBC Normal <=0.2 [facility] Comment on above: Performed By: #### L [id number] ####[facility] (DEFAULT)[address] [place] [address] Platelet mean volume (Bld) [Entitic vol] 10.1 fL Normal 8.7-12.3 [facility] Comment on above: Performed By: #### L [id number] ####[facility] (DEFAULT)[address] [place] [address] Platelets (Bld) [#/Vol] 155 10*3/uL Normal 146-337 [facility] Comment on above: Performed By: #### L [id number] ####[facility] (DEFAULT)[address] [place] [address] RBC (Bld) [#/Vol] 4.26 10*6/uL Low 4.38-5.83 [facility] Comment on above: Performed By: #### L [id number] ####[facility] (DEFAULT)[address] [place] [address] RBC Distribution 14.0 % Normal 10.9-14.3 [facility] Comment on above: Performed By: #### L [id number] ####[facility] (DEFAULT)[address] [place] [address] Segs + Bands Auto 52.7 % Normal [facility] Comment on above: Performed By: #### L AB980 ####[facility] (DEFAULT)[address] [place] [address] Segs + Bands,Absolute Auto 1.91 K/uL Normal 1.57-6.19 [facility] Comment on above: Performed By: #### L [id number] ####[facility] (DEFAULT)[address] [place] [address] WBC (Bld) [#/Vol] 3.62 10*3/uL Low 3.73-10.10 [facility] Comment on above: Performed By: #### L [id number] ####[facility] (DEFAULT)[address] [place] [address] CHEM 7 (LYTES,BUN,CREA,GLUC) on 01-16-2024 Anion gap [Moles/Vol] 11 mmol/L 7 - 17 mmol/L [facility] Chloride [Moles/Vol] 108 mmol/L 98 - 10 8 mmol/L [facility] CO2 [Moles/Vol] 24 mmol/L 21 - 31 mmol/L [facility] Creatinine [Mass/Vol] 1.04 mg/dL 0.70 - 1.30 mg/dL [facility] eGFR, CKD-EPI, Male 86 - PINF [facility] Comment on above: Reported eGFR is bas ed on the CKD-EPI 2020 equation using creatinine, age, and sex. Glucose [Mass/Vol] 95 mg/dL 70 - 99 mg/dL [facility] Osmolality Calc [Osmolality] 293 [facility] Potassium [Moles/Vol] 4.0 mmol/L 3.5 - 5.0 mmol/L [facility] Sodium [Moles/Vol] 139 mmol/L 135 - 145 mmol/L [facility] Urea nitrogen [Mass/Vol] 19 mg/dL 7 - 25 mg/dL [facility] Urea nitrogen/Creatinine [Mass ratio] 18 mg/mg [facility] Anion gap [Moles/Vol] 11 mmol/L Normal - [facility] Comment on above: Performed By: #### C A, IPB, MGO, CHM7, HFP ####[facility] (DEFAULT)[address] [place] [address] Chloride [Moles/Vol] 108 mmol/L Normal 98-108 [facility] Comment on above: Performed By: #### C A, IPB, MGO, CHM7, HFP ####[facility] (DEFAULT)[address] [place] [address] CO2 [Moles/Vol] 24 mmol/L Normal 21-31 [facility] Comment on above: Performed By: #### C A, IPB, MGO, CHM7, HFP ####[facility] (DEFAULT)[address] [place] [address] Creatinine [Mass/Vol] 1.04 mg/dL Normal 0.70-1.30 [facility] Comment on above: Performed By: #### C A, IPB, MGO, CHM7, HFP ####[facility] (DEFAULT)[address] [place] [address] GFR/1.73 sq M.predicted among non-blacks MDRD (S/P/Bld) [Vol rate/Area] 86 mL/min/{1.73_m2} Normal >=60 [facility] Comment on above: Result Comment: Repo rted eGFR is based on the CKD-EPI 2020 equation using creatinine, age, and sex. Performed By: #### C A, IPB, MGO, CHM7, HFP ####U [facility] (DEFAULT)[address] [place] [address] Glucose [Mass/Vol] 95 mg/dL Normal 70-99 [facility] Comment on above: Performed By: #### C A, IPB, MGO, CHM7, HFP ####[facility] (DEFAULT)[address] [place] [address] Osmolality [Osmolality] 293 mosm/kg Normal 278-305 [facility] Comment on above: Performed By: #### C A, IPB, MGO, CHM7, HFP ####[facility] (DEFAULT)[address] [place] [address] Potassium [Moles/Vol] 4.0 mmol/L Normal 3.5-5.0 [facility] Comment on above: Performed By: #### C A, IPB, MGO, CHM7, HFP ####[facility] (DEFAULT)[address] [place] [address] Sodium [Moles/Vol] 139 mmol/L Normal 135-145 [facility] Comment on above: Performed By: #### C A, IPB, MGO, CHM7, HFP ####[facility] (DEFAULT)[address] [place] [address] Urea nitrogen [Mass/Vol] 19 mg/dL Normal 7-25 [facility] Comment on above: Performed By: #### C A, IPB, MGO, CHM7, HFP ####[facility] (DEFAULT)[address] [place] [address] Urea nitrogen/Creatinine [Mass ratio] 18 mg/mg Normal [facility] Comment on above: Performed By: #### C A, IPB, MGO, CHM7, HFP ####[facility] (DEFAULT)[address] [place] [address] D-DIMER,QUANTITATIVEOrdered By: Shaji Kelly on 01-16-2024 Fibrin D-dimer FEU (PPP) [Mass/Vol] 0.67 [facility] Comment on above: The D-Dimer assay is intended for use in conjuction with a clinical pretest probability (PTP) assessment model to exclude pulmonary embolism (PE) and as an aid in the diagnosis of Deep Vein Thrombosis (DVT) in outpatients suspected of PE or DVT. For the assay in use at [facility] ([facility]), a cutoff of <0.50 mcg/mL has a Negative Predictive Value of 99.7% for exclusion of DVT in low and moderate PTP patients. Interpretation and review of laboratory results Abnormal [facility] D-DIMER,QUANTITATIVEon 01-16 D-Dimer, High Sensitivity 0.67 mcg/mL FEU High <0.50 [facility] Comment on above: Result Comment: The D-Dimer assay is intended for use in conjuction with a clinical pretest probability (PTP) assessment model to exclude pulmonary embolism (PE) and as an aid in the diagnosis of Deep Vein Thrombosis (DVT) in outpatients suspected of PE or DVT. For the assay in use at [facility] ([facility]), a cutoff of <0.50 mcg/mL has a Negative Predictive Value of 99.7% for exclusion of DVT in low and moderate PTP patients. Performed By: #### P TPTT, HSDDI ####[facility] (DEFAULT)[address] [place] [address] HEPATIC FUNCTION PANELon Albumin [Mass/Vol] 3.7 g/dL 3.5 - 5.0 g/dL [facility] ALP [Catalytic activity/Vol] 70 U/L 32 - 126 U/L [facility] ALT [Catalytic activity/Vol] 8 U/L Low 10 - 52 U/L [facility] AST [Catalytic activity/Vol] 21 U/L 10 - 39 U/L [facility] Bilirubin [Mass/Vol] 1.9 mg/dL High NINF - 1.5 mg/dL [facility] Bilirubin.direct [Mass/Vol] 0.4 mg/dL High NINF - 0.3 mg/dL [facility] Protein [Mass/Vol] 6.1 g/dL Low 6.4 - 8.3 g/dL [facility] Albumin [Mass/Vol] 3.7 g/dL Normal 3.5-5.0 [facility] Comment on above: Performed By: #### C A, IPB, MGO, CHM7, HFP ####[facility] (DEFAULT)[address] [place] [address] ALP [Catalytic activity/Vol] 70 U/L Normal 32-126 [facility] Comment on above: Performed By: #### C A, IPB, MGO, CHM7, HFP ####[facility] (DEFAULT)[address] [place] [address] ALT [Catalytic activity/Vol] 8 U/L Low 10-52 [facility] Comment on above: Performed By: #### C A, IPB, MGO, CHM7, HFP ####[facility] (DEFAULT)[address] [place] [address] AST [Catalytic activity/Vol] 21 U/L Normal 10-39 [facility] Comment on above: Performed By: #### C A, IPB, MGO, CHM7, HFP ####[facility] (DEFAULT)[address] [place] [address] Bilirubin [Mass/Vol] 1.9 mg/dL High <1.5 [facility] Comment on above: Performed By: #### C A, IPB, MGO, CHM7, HFP ####[facility] (DEFAULT)[address] [place] [address] Bilirubin.indirect [Mass/Vol] 0.4 mg/dL High <0.3 [facility] Comment on above: Performed By: #### C A, IPB, MGO, CHM7, HFP ####[facility] (DEFAULT)[address] [place] [address] Protein [Mass/Vol] 6.1 g/dL Low 6.4-8.3 [facility] Comment on above: Performed By: #### C A, IPB, MGO, CHM7, HFP ####[facility] (DEFAULT)[address] [place] [address] MAGNESIUMon 01-16-2024 Magnesium [Mass/Vol] 1.7 mg/dL 1.6 - 2 .6 mg/dL [facility] Magnesium [Mass/Vol] 1.7 mg/dL Normal 1.6-2.6 [facility] Comment on above: Performed By: #### JO ANN Willis MGO, HELENM7, HFP ####[facility] (DEFAULT)[address] [place] [address] No Panel Informationon 01-16 Interpretation and review of laboratory results Abnormal [facility] Interpretation and review of laboratory results Normal [facility] PHOSPHATE, INORGANICon 01-16 Phosphate [Mass/Vol] 4.1 mg/dL 2.2 - 4 .6 mg/dL [facility] Phosphorous 4.1 mg/dL Normal 2.2-4.6 [facility] Comment on above: Performed By: #### JO ANN Willis, DOMENICA, CHM7, HFP ####[facility] (DEFAULT)[address] [place] [address] PT,INR,PTTon 01-16-2024 aPTT Coag (PPP) [Time] 29.6 s [facility] INR Coag (Bld) [Relative time] 1.2 {INR} High 0.9 - 1.1 [facility] Interpretation and review of laboratory results Abnormal [facility] PT Coag (PPP) [Time] 14.9 s High [facility] aPTT Coag (Bld) [Time] 29.6 s Normal 24.0-34.3 [facility] Comment on above: Performed By: #### P TPTT, HSDDI ####[facility] (DEFAULT)[address] [place] [address]373 INR Coag (PPP) [Relative time] 1.2 {INR} High 0.9-1.1 [facility] Comment on above: Performed By: #### P TPTT, HSDDI ####[facility] (DEFAULT)[address] [place] [address] PT Coag (PPP) [Time] 14.9 s High 11.9-14.2 [facility] Comment on above: Performed By: #### P TPTT, HSDDI ####[facility] (DEFAULT)[address] [place] [address] TACROLIMUS LEVEL, TROUGH (IL E DRUG LEVEL)Ordered By: Jimy Castillo on 01-16-2024 Interpretation and review of laboratory results Normal [facility] Tacrolimus (Bld) [Mass/Vol] 5.7 ng/mL Bone Marrow Transplant: 4.0-12.0, Therapeutic: 5.0-15.0 [facility] Method performed is a chemiluminescent microparticle immunoasssay on the [employer] i2000. The range is based on experience at [facility] and users should be aware that target concentrations vary widely depending on concomitant therapy, time post-transplant, and desired degree of immunosuppression. [facility] TACROLIMUS LEVEL, TROUGH (IL E DRUG LEVEL)on 01-16-2024 Tacrolimus, Trough 5.7 ng/mL Normal Bone Susana ow Transplant: 4.0-12.0, Therapeutic: 5.0-15.0 [facility] Comment on above: Order Comment: Pleas e draw at specified interval PRIOR to dose. Do not hold dose to wait for level. Specimens batched twice per day, (M-F) and once per day weekendsMethod performed is a chemiluminescent microparticle immunoasssay on the [employer] i2000.The range is based on experience at [facility] and users should be aware that target concentrations vary widely depending on concomitant therapy, time post-transplant, and desired degree of immunosuppression. Performed By: #### T ACRO ####[facility] (DEFAULT)[address] [place] [address] US ABDOMEN LIVER DOPPLERon 0 01-16-2024 US ABDOMEN LIVER DOPPLER Normal [facility] US.doppler Abdominal vessels on 01-16-2024 IMPRESSION: 1. [...] pleural effusion. Trace right upper quadrant ascites. [facility]ative[facility] Ordered By: Iona Duran on 01-16-2024 [facility] Work Phone: XR CHEST PA AND LATERAL 2 EWSon 01-16-2024 XR CHEST PA AND LATERAL 2 VIEWS Normal [facility] XR Chest PA and Lateralon IMPRESSION: Moderate [...] Normal IMPRESSION IMPRESSION: Moderate right pleural effusion. [facility] Radiology Study observation (narrative) [facility] XR Chest PA and LateralOrder ed By: Daisha Patterson on 01-16-2024 [facility] Work Phone: ALL CBC WITH AUTO DIFFon BASOPHILS ABSOLUTE AUTO 0.0 [facility] Basophils/100 WBC (Bld) 0.5 % 0.2 - 2.0 % [facility] Eosinophils/100 WBC (Bld) 2.8 % 0.9 - 7.0 % [facility] Erythrocyte distribution width (RBC) [Ratio] 13.8 % 11.0 - 15.0 % [facility] Hematocrit (Bld) [Volume fraction] 43.7 % 42.0 - 54.0 % [facility] Hemoglobin (Bld) [Mass/Vol] 14.0 g/dL 14.0 - 18.0 g/dL [facility] IMMATURE GRANULOCYTES ABS AUTO 0.01 [facility] Immature granulocytes/100 WBC (Bld) 0.3 % 0.0 - 0.5 % [facility] LYMPHOCYTES ABSOLUTE AUTO 1.5 [facility] Lymphocytes/100 WBC (Bld) 37.5 % 20.5 - 60.0 % [facility] MCH (RBC) [Entitic mass] 28.4 pg 25.9 - 34.0 pg [facility] MCHC (RBC) [Mass/Vol] 32.0 g/dL 29.9 - 35.2 g/dL [facility] MCV (RBC) [Entitic vol] 88.6 fL 80.0 - 94.0 fL [facility] MONOCYTES ABSOLUTE AUTO 0.5 [facility] Monocytes/100 WBC (Bld) 11.9 % 1.7 - 12.0 % [facility] NEUTROPHILS ABSOLUTE AUTO 1.9 [facility] Neutrophils/100 WBC (Bld) 47.0 % 43.0 - 75.0 % [facility] Platelet mean volume (Bld) [Entitic vol] 10.3 fL 9.5 - 13.5 fL [facility] PLT 180 [facility] RBC 4.93 [facility] WBC 4.0 [facility] ALL CBC WITH AUTO DIFFon BASOPHILS ABSOLUTE AUTO 0.0 [facility] Basophils/100 WBC (Bld) 0.5 % 0.2 - 2.0 % [facility] Eosinophils/100 WBC (Bld) 2.6 % 0.9 - 7.0 % [facility] Erythrocyte distribution width (RBC) [Ratio] 13.5 % 11.0 - 15.0 % [facility] Hematocrit (Bld) [Volume fraction] 43.8 % 42.0 - 54.0 % [facility] Hemoglobin (Bld) [Mass/Vol] 14.0 g/dL 14.0 - 18.0 g/dL [facility] IMMATURE GRANULOCYTES ABS AUTO 0.00 [facility] Immature granulocytes/100 WBC (Bld) 0.0 % 0.0 - 0.5 % [facility] Interpretation and review of laboratory results Abnormal [facility] LYMPHOCYTES ABSOLUTE AUTO 1.8 [facility] Lymphocytes/100 WBC (Bld) 45.2 % 20.5 - 60.0 % [facility] MCH (RBC) [Entitic mass] 27.9 pg 25.9 - 34.0 pg [facility] MCHC (RBC) [Mass/Vol] 32.0 g/dL 29.9 - 35.2 g/dL [facility] MCV (RBC) [Entitic vol] 87.4 fL 80.0 - 94.0 fL [facility] MONOCYTES ABSOLUTE AUTO 0.4 [facility] Monocytes/100 WBC (Bld) 9.6 % 1.7 - 12.0 % [facility] NEUTROPHILS ABSOLUTE AUTO 1.6 [facility] Neutrophils/100 WBC (Bld) 42.1 % Low 43.0 - 75.0 % [facility] Platelet mean volume (Bld) [Entitic vol] 9.8 fL 9.5 - 13.5 fL [facility] EO # 0.1 [facility] PLT 180 [facility] RBC 5.01 [facility] WBC 3.9 Low [facility] CHEM 7 (LYTES,BUN,CREA,GLUC) on 09-11-2023 Anion gap [Moles/Vol] 13 mmol/L 7 - 17 mmol/L [facility] Chloride [Moles/Vol] 111 mmol/L High 98 - 10 8 mmol/L [facility] CO2 [Moles/Vol] 20 mmol/L Low 21 - 31 mmol/L [facility] Creatinine [Mass/Vol] 1.13 mg/dL 0.70 - 1.30 mg/dL [facility] eGFR, CKD-EPI, Male 78 - PINF [facility] Glucose [Mass/Vol] 109 mg/dL High 70 - 99 mg/dL [facility] Interpretation and review of laboratory results Abnormal [facility] Osmolality Calc [Osmolality] 295 [facility] Potassium [Moles/Vol] 4.3 mmol/L 3.5 - 5.0 mmol/L [facility] Sodium [Moles/Vol] 140 mmol/L 135 - 145 mmol/L [facility] Urea nitrogen [Mass/Vol] 16 mg/dL 7 - 25 mg/dL [facility] Urea nitrogen/Creatinine [Mass ratio] 14 mg/mg [facility] Anion gap [Moles/Vol] 13 mmol/L Normal 7-17 [facility] Comment on above: Performed By: #### NATHANIEL RAMÍREZ ####[facility] (DEFAULT)[address] [place] [address] Chloride [Moles/Vol] 111 mmol/L High 98-108 [facility] Comment on above: Performed By: #### NATHANIEL RAMÍREZ ####[facility] (DEFAULT)[address] [place] [address] CO2 [Moles/Vol] 20 mmol/L Low 21-31 [facility] Comment on above: Performed By: #### NATHANIEL RAMÍREZ ####[facility] (DEFAULT)[address] [place] [address] Creatinine [Mass/Vol] 1.13 mg/dL Normal 0.70-1.30 [facility] Comment on above: Performed By: #### Rod BLOOM CHM7 ####U [facility] (DEFAULT)[address] [address] [place] [address] GFR/1.73 sq M.predicted among non-blacks MDRD (S/P/Bld) [Vol rate/Area] 78 mL/min/{1.73_m2} Normal >=60 [facility] Comment on above: Result Comment: Repo rted eGFR is based on the CKD-EPI 2020 equation using creatinine, age, and sex. Performed By: #### TJ RAMÍREZ7 ####U [facility] (DEFAULT)[address] [place] [address] Glucose [Mass/Vol] 109 mg/dL High 70-99 [facility] Comment on above: Performed By: #### Rod BLOOM CHM7 ####U [facility] (DEFAULT)[address] [place] [address] Osmolality [Osmolality] 295 mosm/kg Normal 278-305 [facility] Comment on above: Performed By: #### Rod BLOOM CHM7 ####[facility] (DEFAULT)[address] [place] [address] Potassium [Moles/Vol] 4.3 mmol/L Normal 3.5-5.0 [facility] Comment on above: Performed By: #### Rod BLOOM CHM7 ####[facility] (DEFAULT)[address] [place] [address] Sodium [Moles/Vol] 140 mmol/L Normal 135-145 [facility] Comment on above: Performed By: #### Rod BLOOM CHM7 ####[facility] (DEFAULT)[address] [place] [address] Urea nitrogen [Mass/Vol] 16 mg/dL Normal 7-25 [facility] Comment on above: Performed By: #### Rod BLOOM CHM7 ####[facility] (DEFAULT)[address] [place] [address], [place] [address] Urea nitrogen/Creatinine [Mass ratio] 14 mg/mg Normal [facility] Comment on above: Performed By: #### NATHANIEL RAMÍREZ ####[facility] (DEFAULT)[address] [place] [address] GLUCOSE POCon 09-11-2023 Glucose [Mass/Vol] 108 mg/dL High 70 - 99 mg/dL [facility] Interpretation and review of laboratory results Abnormal [facility] POC Sample Type CAPBL [facility] Legionella sp identified Org specific cx Nom (Unsp spec)on 09-11-2023 Bacteria identified Cx Nom (Unsp spec) NO GROWTH DAY 7 OF 7 [facility] MAGNESIUMon 09-11-2023 Interpretation and review of laboratory results Normal [facility] Magnesium [Mass/Vol] 1.6 mg/dL 1.6 - 2 .6 mg/dL [facility] Magnesium [Mass/Vol] 1.6 mg/dL Normal 1.6-2.6 [facility] Comment on above: Performed By: #### NATHANIEL RAMÍREZ ####[facility] (DEFAULT)[address] [place] [address] No Panel Informationon 09-11 [facility] TACROLIMUS LEVEL, TROUGH (IL E DRUG LEVEL)on 09-11-2023 Interpretation and review of laboratory results Normal [facility] Tacrolimus (Bld) [Mass/Vol] 11.5 ng/mL [facility] Tacrolimus, Trough 11.5 ng/mL Normal Bone Susana ow Transplant: 4.0-12.0, Therapeutic: 5.0-15.0 [facility] Comment on above: Order Comment: Pleas e draw at specified interval PRIOR to dose. Do not hold dose to wait for level. Specimens batched twice per day, (M-F) and once per day weekendsMethod performed is a chemiluminescent microparticle immunoasssay on the [employer] i2000.The range is based on experience at [facility] and users should be aware that target concentrations vary widely depending on concomitant therapy, time post-transplant, and desired degree of immunosuppression. Performed By: #### T ACRO ####[facility] (DEFAULT)[address] [place] [address] CBC,PLATELETSon 09-10-2023 Erythrocyte distribution width (RBC) [Ratio] 13.9 % 10.9 - 14.3 % [facility] Hematocrit (Bld) [Volume fraction] 40.0 % 39.6 - 48.8 % [facility] Hemoglobin (Bld) [Mass/Vol] 12.7 g/dL Low 13.4 - 16.8 g/dL [facility] Interpretation and review of laboratory results Abnormal [facility] MCH (RBC) [Entitic mass] 27.3 pg 26.1 - 33.3 pg [facility] MCHC (RBC) [Mass/Vol] 31.8 g/dL Low 31.9 - 36.5 g/dL [facility] MCV (RBC) [Entitic vol] 86.0 fL 79.0 - 94.5 fL [facility] Platelet mean volume (Bld) [Entitic vol] 9.5 fL 8.7 - 12.3 fL [facility] Platelets (Bld) [#/Vol] 225 10*3/uL 146 - 337 K/uL [facility] RBC (Bld) [#/Vol] 4.65 10*6/uL [facility] WBC (Bld) [#/Vol] 6.52 10*3/uL 3.73 - 10. 10 K/uL [facility] Hematocrit (Bld) [Volume fraction] 40.0 % Normal 39.6-48.8 [facility] Comment on above: Performed By: #### [facility] ####[facility] (DEFAULT)[address] [place] [address] Hemoglobin (Bld) [Mass/Vol] 12.7 g/dL Low 13.4-16.8 [facility] Comment on above: Performed By: #### H EMOGC ####[facility] (DEFAULT)[address] [place] [address] MCV (RBC) [Entitic vol] 86.0 fL Normal 79.0-94.5 [facility] Comment on above: Performed By: #### H EMOGC ####[facility] (DEFAULT)[address] [place] [address] Mean Cell Hgb 27.3 pg Normal 26.1-33.3 [facility] Comment on above: Performed By: #### H EMOGC ####[facility] (DEFAULT)[address] [place] [address] Mean Cell Hgb Conc 31.8 g/dL Low 31.9-36.5 [facility] Comment on above: Performed By: #### H EMOGC ####[facility] (DEFAULT)[address] [place] [address] Platelet mean volume (Bld) [Entitic vol] 9.5 fL Normal 8.7-12.3 [facility] Comment on above: Performed By: #### H EMOGC ####[facility] (DEFAULT)[address] [place] [address] Platelets (Bld) [#/Vol] 225 10*3/uL Normal 146-337 [facility] Comment on above: Performed By: #### H EMOGC ####[facility] (DEFAULT)[address] [place] [address] RBC (Bld) [#/Vol] 4.65 10*6/uL Normal 4.38-5.83 [facility] Comment on above: Performed By: #### H EMOGC ####[facility] (DEFAULT)[address] [place] [address] RBC Distribution 13.9 % Normal 10.9-14.3 [facility] Comment on above: Performed By: #### [facility] ####[facility] (DEFAULT)[address] [place] [address] WBC (Bld) [#/Vol] 6.52 10*3/uL Normal 3.73-10.10 [facility] Comment on above: Performed By: #### [facility] ####[facility] (DEFAULT)[address] [place] [address] CHEM 7 (LYTES,BUN,CREA,GLUC) on 09-10-2023 Anion gap [Moles/Vol] 13 mmol/L 7 - 17 mmol/L [facility] Chloride [Moles/Vol] 111 mmol/L High 98 - 10 8 mmol/L [facility] CO2 [Moles/Vol] 20 mmol/L Low 21 - 31 mmol/L [facility] Creatinine [Mass/Vol] 1.27 mg/dL 0.70 - 1.30 mg/dL [facility] eGFR, CKD-EPI, Male 68 - PINF [facility] Glucose [Mass/Vol] 100 mg/dL High 70 - 99 mg/dL [facility] Osmolality Calc [Osmolality] 293 [facility] Potassium [Moles/Vol] 4.4 mmol/L 3.5 - 5.0 mmol/L [facility] Sodium [Moles/Vol] 140 mmol/L 135 - 145 mmol/L [facility] Urea nitrogen [Mass/Vol] 12 mg/dL 7 - 25 mg/dL [facility] Urea nitrogen/Creatinine [Mass ratio] 9 mg/mg [facility] Anion gap [Moles/Vol] 13 mmol/L Normal 7-17 [facility] Comment on above: Performed By: #### NATHANIEL RAMÍREZ, [facility] ####[facility] (DEFAULT)[address] [place] [address] Chloride [Moles/Vol] 111 mmol/L High 98-108 [facility] Comment on above: Performed By: #### M NATHANIEL BLOOM, HFP ####U [facility] (DEFAULT)[address] [place] [address] CO2 [Moles/Vol] 20 mmol/L Low 21-31 [facility] Comment on above: Performed By: #### NATHANIEL RAMÍREZ, HFP ####U [facility] (DEFAULT)[address] [place] [address] Creatinine [Mass/Vol] 1.27 mg/dL Normal 0.70-1.30 [facility] Comment on above: Performed By: #### NATHANIEL RAMÍREZ, HFP ####U [facility] (DEFAULT)[address] [place] [address] GFR/1.73 sq M.predicted among non-blacks MDRD (S/P/Bld) [Vol rate/Area] 68 mL/min/{1.73_m2} Normal >=60 [facility] Comment on above: Result Comment: Repo rted eGFR is based on the CKD-EPI 2020 equation using creatinine, age, and sex. Performed By: #### NATHANIEL RAMÍREZ, HFP ####[facility] (DEFAULT)[address] [place] [address], [place] [address] Glucose [Mass/Vol] 100 mg/dL High 70-99 [facility] Comment on above: Performed By: #### NATHANIEL RAMÍREZ, HFP ####[facility] (DEFAULT)[address] [place] [address] Osmolality [Osmolality] 293 mosm/kg Normal 278-305 [facility] Comment on above: Performed By: #### NATHANIEL RAMÍREZ, HFP ####U [facility] (DEFAULT)[address] [place] [address] Potassium [Moles/Vol] 4.4 mmol/L Normal 3.5-5.0 [facility] Comment on above: Performed By: #### NATHANIEL RAMÍREZ, HFP ####[facility] (DEFAULT)[address] [place] [address] Sodium [Moles/Vol] 140 mmol/L Normal 135-145 [facility] Comment on above: Performed By: #### M NATHANIEL BLOOM, HFP ####U [facility] (DEFAULT)[address] [facility] [place] [address] Urea nitrogen [Mass/Vol] 12 mg/dL Normal 7-25 [facility] Comment on above: Performed By: #### M NATHANIEL BLOOM, HFP ####U [facility] (DEFAULT)[address] [place] [address] Urea nitrogen/Creatinine [Mass ratio] 9 mg/mg Normal [facility] Comment on above: Performed By: #### NATHANIEL RAMÍREZ, HFP ####[facility] (DEFAULT)[address] [place] [address] HEPATIC FUNCTION PANELon Albumin [Mass/Vol] 3.3 g/dL Low 3.5 - 5.0 g/dL [facility] ALP [Catalytic activity/Vol] 143 U/L High 32 - 126 U/L [facility] ALT [Catalytic activity/Vol] 28 U/L 10 - 52 U/L [facility] AST [Catalytic activity/Vol] 29 U/L 10 - 39 U/L [facility] Bilirubin [Mass/Vol] 0.9 mg/dL [facility] mg/dL [facility] Bilirubin.direct [Mass/Vol] 0.2 mg/dL NINF - 0.3 mg/dL [facility] Protein [Mass/Vol] 6.8 g/dL 6.4 - 8.3 g/dL [facility] Albumin [Mass/Vol] 3.3 g/dL Low 3.5-5.0 [facility] Comment on above: Performed By: #### NATHANIEL RAMÍREZ, HFP ####[facility] (DEFAULT)[address] [place] [address] ALP [Catalytic activity/Vol] 143 U/L High 32-126 [facility] Comment on above: Performed By: #### M NATHANIEL BLOOM, HFP ####[facility] (DEFAULT)[address] [place] [address] ALT [Catalytic activity/Vol] 28 U/L Normal 10-52 [facility] Comment on above: Performed By: #### NATHANIEL RAMÍREZ, HFP ####[facility] (DEFAULT)[address] [place] [address] AST [Catalytic activity/Vol] 29 U/L Normal 10-39 [facility] Comment on above: Performed By: #### NATHANIEL RAMÍREZ, HFP ####[facility] (DEFAULT)[address] [place] [address] Bilirubin [Mass/Vol] 0.9 mg/dL Normal <1.5 [facility] Comment on above: Performed By: #### NATHANIEL RAMÍREZ, HFP ####[facility] (DEFAULT)[address] [place] [address] Bilirubin.indirect [Mass/Vol] 0.2 mg/dL Normal <0.3 [facility] Comment on above: Performed By: #### TJ RAMÍREZ7, HFP ####[facility] (DEFAULT)[address] [place] [address] Protein [Mass/Vol] 6.8 g/dL Normal 6.4-8.3 [facility] Comment on above: Performed By: #### NATHANIEL RAMÍREZ, HFP ####[facility] (DEFAULT)[address] [place] [address] MAGNESIUMon 09-10-2023 Interpretation and review of laboratory results Normal [facility] Magnesium [Mass/Vol] 1.9 mg/dL 1.6 - 2 .6 mg/dL [facility] Magnesium [Mass/Vol] 1.9 mg/dL Normal 1.6-2.6 [facility] Comment on above: Performed By: #### M GO, CHM7, HFP ####[facility] (DEFAULT)[address] [place] [address] No Panel Informationon 09-10 Interpretation and review of laboratory results Abnormal [facility] TACROLIMUS LEVEL, TROUGH (IL E DRUG LEVEL)Ordered By: Jimy Castillo on 09-10-2023 Interpretation and review of laboratory results Normal [facility] Tacrolimus (Bld) [Mass/Vol] 11.8 ng/mL [facility] TACROLIMUS LEVEL, TROUGH (IL E DRUG LEVEL)on 09-10-2023 Tacrolimus, Trough 11.8 ng/mL Normal Bone Susana ow Transplant: 4.0-12.0, Therapeutic: 5.0-15.0 [facility] Comment on above: Order Comment: Pleas e draw at specified interval PRIOR to dose. Do not hold dose to wait for level. Specimens batched twice per day, (M-F) and once per day weekendsMethod performed is a chemiluminescent microparticle immunoasssay on the [employer] i2000.The range is based on experience at [facility] and users should be aware that target concentrations vary widely depending on concomitant therapy, time post-transplant, and desired degree of immunosuppression. Performed By: #### T ACRO ####[facility] (DEFAULT)[address] [place] [address] CHEM 7 (LYTES,BUN,CREA,GLUC) on 09-09-2023 Anion gap [Moles/Vol] 14 mmol/L 7 - 17 mmol/L [facility] Chloride [Moles/Vol] 113 mmol/L High 98 - 10 8 mmol/L [facility] CO2 [Moles/Vol] 18 mmol/L Low 21 - 31 mmol/L [facility] Creatinine [Mass/Vol] 1.03 mg/dL 0.70 - 1.30 mg/dL [facility] eGFR, CKD-EPI, Male 87 - PINF [facility] Glucose [Mass/Vol] 106 mg/dL High 70 - 99 mg/dL [facility] Interpretation and review of laboratory results Abnormal [facility] Osmolality Calc [Osmolality] 294 [facility] Potassium [Moles/Vol] 4.0 mmol/L 3.5 - 5.0 mmol/L [facility] Sodium [Moles/Vol] 141 mmol/L 135 - 145 mmol/L [facility] Urea nitrogen [Mass/Vol] 10 mg/dL 7 - 25 mg/dL [facility] Urea nitrogen/Creatinine [Mass ratio] 10 mg/mg [facility] Anion gap [Moles/Vol] 14 mmol/L Normal 7-17 [facility] Comment on above: Performed By: #### JO ANN RAMÍREZ, CHM7 ####[facility] (DEFAULT)[address] [place] [address] Chloride [Moles/Vol] 113 mmol/L High 98-108 [facility] Comment on above: Performed By: #### JO ANN RAMÍREZ, CHM7 ####[facility] (DEFAULT)[address] [place] [address] CO2 [Moles/Vol] 18 mmol/L Low 21-31 [facility] Comment on above: Performed By: #### JO ANN RAMÍREZ, CHM7 ####[facility] (DEFAULT)[address] [place] [address] Creatinine [Mass/Vol] 1.03 mg/dL Normal 0.70-1.30 [facility] Comment on above: Performed By: #### JO ANN RAMÍREZ, CHM7 ####[facility] (DEFAULT)[address] [place] [address] GFR/1.73 sq M.predicted among non-blacks MDRD (S/P/Bld) [Vol rate/Area] 87 mL/min/{1.73_m2} Normal >=60 [facility] Comment on above: Result Comment: Repo rted eGFR is based on the CKD-EPI 2020 equation using creatinine, age, and sex. Performed By: #### JO ANN RAMÍREZ CHM7 ####U [facility] (DEFAULT)[address] [place] [address] Glucose [Mass/Vol] 106 mg/dL High 70-99 [facility] Comment on above: Performed By: #### JO ANN RAMÍREZ CHM7 ####U [facility] (DEFAULT)[address] [place] [address] Osmolality [Osmolality] 294 mosm/kg Normal 278-305 [facility] Comment on above: Performed By: #### JO ANN RAMÍREZ CHM7 ####U [facility] (DEFAULT)[address] [place] [address] Potassium [Moles/Vol] 4.0 mmol/L Normal 3.5-5.0 [facility] Comment on above: Performed By: #### JO ANN RAMÍREZ CHM7 ####[facility] (DEFAULT)[address] [place] [address] Sodium [Moles/Vol] 141 mmol/L Normal 135-145 [facility] Comment on above: Performed By: #### JO ANN RAMÍREZ, CHM7 ####[facility] (DEFAULT)[address] [place] [address] Urea nitrogen [Mass/Vol] 10 mg/dL Normal 7-25 [facility] Comment on above: Performed By: #### JO ANN RAMÍREZ, CHM7 ####[facility] (DEFAULT)[address] [place] [address] Urea nitrogen/Creatinine [Mass ratio] 10 mg/mg Normal [facility] Comment on above: Performed By: #### JO ANN RAMÍREZ, CHM7 ####[facility] (DEFAULT)[address] [place] [address] MAGNESIUMon 09-09-2023 Magnesium [Mass/Vol] 1.6 mg/dL 1.6 - 2 .6 mg/dL [facility] Magnesium [Mass/Vol] 1.6 mg/dL Normal 1.6-2.6 [facility] Comment on above: Performed By: #### M JO ANN BLOOM CHM7 ####[facility] (DEFAULT)[address] [place] [address] No Panel Informationon 09-09 Interpretation and review of laboratory results Normal [facility] PHOSPHATE, INORGANICon 09-09 Phosphate [Mass/Vol] 3.8 mg/dL 2.2 - 4 .6 mg/dL [facility] Phosphorous 3.8 mg/dL Normal 2.2-4.6 [facility] Comment on above: Performed By: #### M JO ANN BLOOM CHM7 ####[facility] (DEFAULT)[address] [place] [address] TACROLIMUS LEVEL, TROUGH (IL E DRUG LEVEL)on 09-09-2023 Interpretation and review of laboratory results Normal [facility] Tacrolimus (Bld) [Mass/Vol] 9.2 ng/mL [facility] Tacrolimus, Trough 9.2 ng/mL Normal Bone Susana ow Transplant: 4.0-12.0, Therapeutic: 5.0-15.0 [facility] Comment on above: Order Comment: Pleas e draw at specified interval PRIOR to dose. Do not hold dose to wait for level. Specimens batched twice per day, (M-F) and once per day weekendsMethod performed is a chemiluminescent microparticle immunoasssay on the [employer] i2000.The range is based on experience at [facility] and users should be aware that target concentrations vary widely depending on concomitant therapy, time post-transplant, and desired degree of immunosuppression. Performed By: #### T ACRO ####[facility] (DEFAULT)[address] [place] [address] CBC,PLATELETSon 09-08-2023 Erythrocyte distribution width (RBC) [Ratio] 13.6 % 10.9 - 14.3 % [facility] Hematocrit (Bld) [Volume fraction] 36.1 % Low 39.6 - 48.8 % [facility] Hemoglobin (Bld) [Mass/Vol] 11.6 g/dL Low 13.4 - 16.8 g/dL [facility] Interpretation and review of laboratory results Abnormal [facility] MCH (RBC) [Entitic mass] 27.4 pg 26.1 - 33.3 pg [facility] MCHC (RBC) [Mass/Vol] 32.1 g/dL 31.9 - 36.5 g/dL [facility] MCV (RBC) [Entitic vol] 85.1 fL 79.0 - 94.5 fL [facility] Platelet mean volume (Bld) [Entitic vol] 9.5 fL 8.7 - 12.3 fL [facility] Platelets (Bld) [#/Vol] 182 10*3/uL 146 - 337 K/uL [facility] RBC (Bld) [#/Vol] 4.24 10*6/uL Low [facility] WBC (Bld) [#/Vol] 4.59 10*3/uL 3.73 - 10. 10 K/uL [facility] Hematocrit (Bld) [Volume fraction] 36.1 % Low 39.6-48.8 [facility] Comment on above: Performed By: #### [facility] ####[facility] (DEFAULT)[address] [place] [address] Hemoglobin (Bld) [Mass/Vol] 11.6 g/dL Low 13.4-16.8 [facility] Comment on above: Performed By: #### [facility] ####[facility] (DEFAULT)[address] [place] [address] MCV (RBC) [Entitic vol] 85.1 fL Normal 79.0-94.5 [facility] Comment on above: Performed By: #### [facility] ####[facility] (DEFAULT)[address] [place] [address] Mean Cell Hgb 27.4 pg Normal 26.1-33.3 [facility] Comment on above: Performed By: #### H EMOGC ####[facility] (DEFAULT)[address] [place] [address] Mean Cell Hgb Conc 32.1 g/dL Normal 31.9-36.5 [facility] Comment on above: Performed By: #### H EMOGC ####[facility] (DEFAULT)[address] [place] [address] Platelet mean volume (Bld) [Entitic vol] 9.5 fL Normal 8.7-12.3 [facility] Comment on above: Performed By: #### H EMOGC ####[facility] (DEFAULT)[address] [place] [address] Platelets (Bld) [#/Vol] 182 10*3/uL Normal 146-337 [facility] Comment on above: Performed By: #### H EMOGC ####[facility] (DEFAULT)[address] [place] [address] RBC (Bld) [#/Vol] 4.24 10*6/uL Low 4.38-5.83 [facility] Comment on above: Performed By: #### H EMOGC ####[facility] (DEFAULT)[address] [place] [address] RBC Distribution 13.6 % Normal 10.9-14.3 [facility] Comment on above: Performed By: #### H EMOGC ####[facility] (DEFAULT)[address] [place] [address] WBC (Bld) [#/Vol] 4.59 10*3/uL Normal 3.73-10.10 [facility] Comment on above: Performed By: #### H EMOGC ####[facility] (DEFAULT)[address] [place] [address] CHEM 7 (LYTES,BUN,CREA,GLUC) on 09-08-2023 Anion gap [Moles/Vol] 12 mmol/L 7 - 17 mmol/L [facility] Chloride [Moles/Vol] 113 mmol/L High 98 - 10 8 mmol/L [facility] CO2 [Moles/Vol] 21 mmol/L 21 - 31 mmol/L [facility] Creatinine [Mass/Vol] 1.14 mg/dL 0.70 - 1.30 mg/dL [facility] eGFR, CKD-EPI, Male 77 - PINF [facility] Glucose [Mass/Vol] 107 mg/dL High 70 - 99 mg/dL [facility] Osmolality Calc [Osmolality] 296 [facility] Potassium [Moles/Vol] 3.9 mmol/L 3.5 - 5.0 mmol/L [facility] Sodium [Moles/Vol] 142 mmol/L 135 - 145 mmol/L [facility] Urea nitrogen [Mass/Vol] 11 mg/dL 7 - 25 mg/dL [facility] Urea nitrogen/Creatinine [Mass ratio] 10 mg/mg [facility] Anion gap [Moles/Vol] 12 mmol/L Normal 7-17 [facility] Comment on above: Performed By: #### M JO ANN BLOOM, CHM7, HFP ####[facility] (DEFAULT)[address] [place] [address] Chloride [Moles/Vol] 113 mmol/L High 98-108 [facility] Comment on above: Performed By: #### M MERLE IPB, CHM7, HFP ####[facility] (DEFAULT)[address] [place] [address] CO2 [Moles/Vol] 21 mmol/L Normal 21-31 [facility] Comment on above: Performed By: #### M MERLE IPB, CHM7, HFP ####[facility] (DEFAULT)[address] [place] [address] Creatinine [Mass/Vol] 1.14 mg/dL Normal 0.70-1.30 [facility] Comment on above: Performed By: #### JO ANN RAMÍREZ, HELENM7, HFP ####U [facility] (DEFAULT)[address] [place] [address] GFR/1.73 sq M.predicted among non-blacks MDRD (S/P/Bld) [Vol rate/Area] 77 mL/min/{1.73_m2} Normal >=60 [facility] Comment on above: Result Comment: Repo rted eGFR is based on the CKD-EPI 2020 equation using creatinine, age, and sex. Performed By: #### JO ANN RAMÍREZ, CHM7, HFP ####U [facility] (DEFAULT)[address] [facility] [place] [id number] Glucose [Mass/Vol] 107 mg/dL High 70-99 [facility] Comment on above: Performed By: #### JO ANN RAMÍREZ, CHM7, HFP ####[facility] (DEFAULT)[address] [place] [address] Osmolality [Osmolality] 296 mosm/kg Normal 278-305 [facility] Comment on above: Performed By: #### JO ANN RAMÍREZ, CHM7, HFP ####[facility] (DEFAULT)[address] [place] [address] Potassium [Moles/Vol] 3.9 mmol/L Normal 3.5-5.0 [facility] Comment on above: Performed By: #### JO ANN RAMÍREZ, CHM7, HFP ####U [facility] (DEFAULT)[address] [place] [address] Sodium [Moles/Vol] 142 mmol/L Normal 135-145 [facility] Comment on above: Performed By: #### CASTRO RAMÍREZB, CHM7, HFP ####[facility] (DEFAULT)[address] [place] [address] Urea nitrogen [Mass/Vol] 11 mg/dL Normal 7-25 [facility] Comment on above: Performed By: #### M JO ANN BLOOM, CHM7, HFP ####[facility] (DEFAULT)[address] [place] [address] Urea nitrogen/Creatinine [Mass ratio] 10 mg/mg Normal [facility] Comment on above: Performed By: #### M JO ANN BLOOM, CHM7, HFP ####[facility] (DEFAULT)[address] [place] [address] HEPATIC FUNCTION PANELon Albumin [Mass/Vol] 2.9 g/dL Low 3.5 - 5.0 g/dL [facility] ALP [Catalytic activity/Vol] 133 U/L High 32 - 126 U/L [facility] ALT [Catalytic activity/Vol] 23 U/L 10 - 52 U/L [facility] AST [Catalytic activity/Vol] 23 U/L 10 - 39 U/L [facility] Bilirubin [Mass/Vol] 0.8 mg/dL [facility]/dL [facility] Bilirubin.direct [Mass/Vol] 0.2 mg/dL [facility] - 0.[facility] mg/dL [facility] Protein [Mass/Vol] 5.9 g/dL Low 6.4 - 8.3 g/dL [facility] Albumin [Mass/Vol] 2.9 g/dL Low 3.5-5.0 [facility] Comment on above: Performed By: #### M JO ANN BLOOM, CHM7, HFP ####U [facility] (DEFAULT)[address] [place] [address] ALP [Catalytic activity/Vol] 133 U/L High 32-126 [facility] Comment on above: Performed By: #### M JO ANN BLOOM, CHM7, HFP ####[facility] (DEFAULT)[address] [place] [address] ALT [Catalytic activity/Vol] 23 U/L Normal 10-52 [facility] Comment on above: Performed By: #### M MERLE, IPB, CHM7, HFP ####[facility] (DEFAULT)[address] [place] [address] AST [Catalytic activity/Vol] 23 U/L Normal 10-39 [facility] Comment on above: Performed By: #### M GO, IPB, CHM7, HFP ####[facility] (DEFAULT)[address] [place] [address] Bilirubin [Mass/Vol] 0.8 mg/dL Normal <1.5 [facility] Comment on above: Performed By: #### M GO, IPB, CHM7, HFP ####[facility] (DEFAULT)[address] [place] [address] Bilirubin.indirect [Mass/Vol] 0.2 mg/dL Normal <0.3 [facility] Comment on above: Performed By: #### M GO, IPB, CHM7, HFP ####[facility] (DEFAULT)[address] [place] [address] Protein [Mass/Vol] 5.9 g/dL Low 6.4-8.3 [facility] Comment on above: Performed By: #### M GO, IPB, CHM7, HFP ####[facility] (DEFAULT)[address] [place] [address] MAGNESIUMon 09-08-2023 Interpretation and review of laboratory results Normal [facility] Magnesium [Mass/Vol] 1.8 mg/dL 1.6 - 2 .6 mg/dL [facility] Magnesium [Mass/Vol] 1.8 mg/dL Normal 1.6-2.6 [facility] Comment on above: Performed By: #### M GO, IPB, CHM7, HFP ####[facility] (DEFAULT)[address] [place] [address] No Panel Informationon 09-08 Interpretation and review of laboratory results Abnormal [facility] PHOSPHATE, INORGANICon 09-08 Interpretation and review of laboratory results Normal [facility] Phosphate [Mass/Vol] 4.1 mg/dL 2.2 - 4 .6 mg/dL [facility] Phosphorous 4.1 mg/dL Normal 2.2-4.6 [facility] Comment on above: Performed By: #### M GO, IPB, CHM7, HFP ####[facility] (DEFAULT)[address] [place] [address] TACROLIMUS LEVEL, TROUGH (IL E DRUG LEVEL)on 09-08-2023 Interpretation and review of laboratory results Normal [facility] Tacrolimus (Bld) [Mass/Vol] 8.5 ng/mL [facility] Tacrolimus, Trough 8.5 ng/mL Normal Bone Susana ow Transplant: 4.0-12.0, Therapeutic: 5.0-15.0 [facility] Comment on above: Order Comment: Pleas e draw at specified interval PRIOR to dose. Do not hold dose to wait for level. Specimens batched twice per day, (M-F) and once per day weekendsMethod performed is a chemiluminescent microparticle immunoasssay on the [employer] i2000.The range is based on experience at [facility] and users should be aware that target concentrations vary widely depending on concomitant therapy, time post-transplant, and desired degree of immunosuppression. Performed By: #### T ACRO ####[facility] (DEFAULT)[address] [place] [address] CBC,PLATELETSon 09-07-2023 Erythrocyte distribution width (RBC) [Ratio] 13.5 % 10.9 - 14.3 % [facility] Hematocrit (Bld) [Volume fraction] 37.1 % Low 39.6 - 48.8 % [facility] Hemoglobin (Bld) [Mass/Vol] 11.9 g/dL Low 13.4 - 16.8 g/dL [facility] Interpretation and review of laboratory results Abnormal [facility] MCH (RBC) [Entitic mass] 27.7 pg 26.1 - 33.3 pg [facility] MCHC (RBC) [Mass/Vol] 32.1 g/dL 31.9 - 36.5 g/dL [facility] MCV (RBC) [Entitic vol] 86.5 fL 79.0 - 94.5 fL [facility] Platelet mean volume (Bld) [Entitic vol] 9.6 fL 8.7 - 12.3 fL [facility] Platelets (Bld) [#/Vol] 176 10*3/uL 146 - 337 K/uL [facility] RBC (Bld) [#/Vol] 4.29 10*6/uL Low [facility] WBC (Bld) [#/Vol] 4.10 10*3/uL 3.73 - 10. 10 K/uL [facility] Hematocrit (Bld) [Volume fraction] 37.1 % Low 39.6-48.8 [facility] Comment on above: Performed By: #### [facility] ####[facility] (DEFAULT)[address] [place] [address] Hemoglobin (Bld) [Mass/Vol] 11.9 g/dL Low 13.4-16.8 [facility] Comment on above: Performed By: #### H EMO ####[facility] (DEFAULT)[address] [place] [address] MCV (RBC) [Entitic vol] 86.5 fL Normal 79.0-94.5 [facility] Comment on above: Performed By: #### H EMO ####[facility] (DEFAULT)[address] [place] [address] Mean Cell Hgb 27.7 pg Normal 26.1-33.3 [facility] Comment on above: Performed By: #### H EMO ####[facility] (DEFAULT)[address] [place] [address] Mean Cell Hgb Conc 32.1 g/dL Normal 31.9-36.5 [facility] Comment on above: Performed By: #### H EMOGC ####[facility] (DEFAULT)[address] [place] [address] Platelet mean volume (Bld) [Entitic vol] 9.6 fL Normal 8.7-12.3 [facility] Comment on above: Performed By: #### H EMO ####[facility] (DEFAULT)[address] [place] [address] Platelets (Bld) [#/Vol] 176 10*3/uL Normal 146-337 [facility] Comment on above: Performed By: #### H EMO ####[facility] (DEFAULT)[address] [place] [address] RBC (Bld) [#/Vol] 4.29 10*6/uL Low 4.38-5.83 [facility] Comment on above: Performed By: #### H EMO ####[facility] (DEFAULT)[address] [place] [address] RBC Distribution 13.5 % Normal 10.9-14.3 [facility] Comment on above: Performed By: #### H EMOGC ####[facility] (DEFAULT)[address] [place] [address] WBC (Bld) [#/Vol] 4.10 10*3/uL Normal 3.73-10.10 [facility] Comment on above: Performed By: #### H EMOGC ####[facility] (DEFAULT)[address] [place] [address] CHEM 7 (LYTES,BUN,CREA,GLUC) on 09-07-2023 Anion gap [Moles/Vol] 13 mmol/L 7 - 17 mmol/L [facility] Chloride [Moles/Vol] 113 mmol/L High 98 - 10 8 mmol/L [facility] CO2 [Moles/Vol] 19 mmol/L Low 21 - 31 mmol/L [facility] Creatinine [Mass/Vol] 1.22 mg/dL 0.70 - 1.30 mg/dL [facility] eGFR, CKD-EPI, Male 71 - PINF [facility] Glucose [Mass/Vol] 107 mg/dL High 70 - 99 mg/dL [facility] Osmolality [facility]olality] [facility] Potassium [Moles/Vol] 3.9 mmol/L 3.5 - 5.0 mmol/L [facility] Sodium [Moles/Vol] 141 mmol/L 135 - 145 mmol/L [facility] Urea nitrogen [Mass/Vol] 13 mg/dL 7 - 25 mg/dL [facility] Urea nitrogen/Creatinine [Mass ratio] 11 mg/mg [facility] Anion gap [Moles/Vol] 13 mmol/L Normal 7-17 [facility] Comment on above: Performed By: #### C HM7, IPB, MGO, HFP ####[facility] (DEFAULT)[address] [place] [address] Chloride [Moles/Vol] 113 mmol/L High 98-108 [facility] Comment on above: Performed By: #### C HM7, IPB, MGO, HFP ####[facility] (DEFAULT)[address] [place] [address] CO2 [Moles/Vol] 19 mmol/L Low 21-31 [facility] Comment on above: Performed By: #### C HM7, IPB, MGO, HFP ####[facility] (DEFAULT)[address] [place] [address] Creatinine [Mass/Vol] 1.22 mg/dL Normal 0.70-1.30 [facility] Comment on above: Performed By: #### C HM7, IPB, MGO, HFP ####[facility] (DEFAULT)[address] [place] [address] GFR/1.73 sq M.predicted among non-blacks MDRD (S/P/Bld) [Vol rate/Area] 71 mL/min/{1.73_m2} Normal >=60 [facility] Comment on above: Result Comment: Repo rted eGFR is based on the CKD-EPI 2020 equation using creatinine, age, and sex. Performed By: #### C HM7, IPB, MGO, HFP ####U [facility] (DEFAULT)[address] [place] [address] Glucose [Mass/Vol] 107 mg/dL High 70-99 [facility] Comment on above: Performed By: #### C HM7, IPB, MGO, HFP ####[facility] (DEFAULT)[address] [place] [address] Osmolality [Osmolality] 295 mosm/kg Normal 278-305 [facility] Comment on above: Performed By: #### C HM7, IPB, MGO, HFP ####[facility] (DEFAULT)[address] [place] [address] Potassium [Moles/Vol] 3.9 mmol/L Normal 3.5-5.0 [facility] Comment on above: Performed By: #### C HM7, IPB, MGO, HFP ####[facility] (DEFAULT)[address] [place] [address] Sodium [Moles/Vol] 141 mmol/L Normal 135-145 [facility] Comment on above: Performed By: #### C HM7, IPB, MGO, HFP ####[facility] (DEFAULT)[address] [place] [address] Urea nitrogen [Mass/Vol] 13 mg/dL Normal 7-25 [facility] Comment on above: Performed By: #### C HM7, IPB, MGO, HFP ####[facility] (DEFAULT)[address] [place] [address], [place] [address] Urea nitrogen/Creatinine [Mass ratio] 11 mg/mg Normal [facility] Comment on above: Performed By: #### C HM7, IPB, MGO, HFP ####[facility] (DEFAULT)[address] [place] [address] HEPATIC FUNCTION PANELon Albumin [Mass/Vol] 2.9 g/dL Low 3.5 - 5.0 g/dL [facility] ALP [Catalytic activity/Vol] 111 U/L 32 - 126 U/L [facility] ALT [Catalytic activity/Vol] 18 U/L 10 - 52 U/L [facility] AST [Catalytic activity/Vol] 23 U/L 10 - 39 U/L [facility] Bilirubin [Mass/Vol] 0.8 mg/dL [facility] mg/dL [facility] Bilirubin.direct [Mass/Vol] 0.3 mg/dL High NINF - 0.3 mg/dL [facility] Protein [Mass/Vol] 6.0 g/dL Low 6.4 - 8.3 g/dL [facility] Albumin [Mass/Vol] 2.9 g/dL Low 3.5-5.0 [facility] Comment on above: Performed By: #### C HM7, IPB, MGO, HFP ####U [facility] (DEFAULT)[address] [place] [address] ALP [Catalytic activity/Vol] 111 U/L Normal 32-126 [facility] Comment on above: Performed By: #### C HM7, IPB, MGO, HFP ####U [facility] (DEFAULT)[address] [place] [address] ALT [Catalytic activity/Vol] 18 U/L Normal 10-52 [facility] Comment on above: Performed By: #### C HM7, IPB, MGO, HFP ####U [facility] (DEFAULT)[address] [place] [address] AST [Catalytic activity/Vol] 23 U/L Normal 10-39 [facility] Comment on above: Performed By: #### C HM7, IPB, MGO, HFP ####[facility] (DEFAULT)[address] [place] [address] Bilirubin [Mass/Vol] 0.8 mg/dL Normal <1.5 [facility] Comment on above: Performed By: #### C HM7, IPB, MGO, HFP ####[facility] (DEFAULT)[address] [place] [address] Bilirubin.indirect [Mass/Vol] 0.3 mg/dL High <0.3 [facility] Comment on above: Performed By: #### C HM7, IPB, MGO, HFP ####[facility] (DEFAULT)[address] [place] [address] Protein [Mass/Vol] 6.0 g/dL Low 6.4-8.3 [facility] Comment on above: Performed By: #### C HM7, IPB, MGO, HFP ####[facility] (DEFAULT)[address] [place] [address] MAGNESIUMon 09-07-2023 Interpretation and review of laboratory results Normal [facility] Magnesium [Mass/Vol] 1.7 mg/dL 1.6 - 2 .6 mg/dL [facility] Magnesium [Mass/Vol] 1.7 mg/dL Normal 1.6-2.6 [facility] Comment on above: Performed By: #### C HM7, IPB, MGO, HFP ####[facility] (DEFAULT)[address] [place] [address] No Panel Informationon 09-07 Interpretation and review of laboratory results Abnormal [facility] PHOSPHATE, INORGANICon 09-07 Interpretation and review of laboratory results Normal [facility] Phosphate [Mass/Vol] 4.4 mg/dL 2.2 - 4 .6 mg/dL [facility] Phosphorous 4.4 mg/dL Normal 2.2-4.6 [facility] Comment on above: Performed By: #### C HM7, IPB, MGO, HFP ####[facility] (DEFAULT)[address] [place] [address] TACROLIMUS LEVEL, TROUGH (IL E DRUG LEVEL)Ordered By: Elizabeth Maldonado on 09-07-2023 Interpretation and review of laboratory results Normal [facility] Tacrolimus (Bld) [Mass/Vol] 7.8 ng/mL [facility] TACROLIMUS LEVEL, TROUGH (IL E DRUG LEVEL)on 09-07-2023 Tacrolimus, Trough 7.8 ng/mL Normal Bone Susana ow Transplant: 4.0-12.0, Therapeutic: 5.0-15.0 [facility] Comment on above: Order Comment: Pleas e draw at specified interval PRIOR to dose. Do not hold dose to wait for level. Specimens batched twice per day, (M-F) and once per day weekendsMethod performed is a chemiluminescent microparticle immunoasssay on the [employer] i2000.The range is based on experience at [facility] and users should be aware that target concentrations vary widely depending on concomitant therapy, time post-transplant, and desired degree of immunosuppression. Performed By: #### T ACRO ####[facility] (DEFAULT)[address] [place] [address] CBC,PLATELETSon 09-06-2023 Erythrocyte distribution width (RBC) [Ratio] 13.4 % 10.9 - 14.3 % [facility] Hematocrit (Bld) [Volume fraction] 38.4 % Low 39.6 - 48.8 % [facility] Hemoglobin (Bld) [Mass/Vol] 11.9 g/dL Low 13.4 - 16.8 g/dL [facility] Interpretation and review of laboratory results Abnormal [facility] MCH (RBC) [Entitic mass] 26.6 pg 26.1 - 33.3 pg [facility] MCHC (RBC) [Mass/Vol] 31.0 g/dL Low 31.9 - 36.5 g/dL [facility] MCV (RBC) [Entitic vol] 85.9 fL 79.0 - 94.5 fL [facility] Platelet mean volume (Bld) [Entitic vol] 9.7 fL 8.7 - 12.3 fL [facility] Platelets (Bld) [#/Vol] 181 10*3/uL 146 - 337 K/uL [facility] RBC (Bld) [#/Vol] 4.47 10*6/uL [facility] WBC (Bld) [#/Vol] 4.41 10*3/uL 3.73 - 10. 10 K/uL [facility] Hematocrit (Bld) [Volume fraction] 38.4 % Low 39.6-48.8 [facility] Comment on above: Performed By: #### [facility] ####[facility] (DEFAULT)[address] [place] [address] Hemoglobin (Bld) [Mass/Vol] 11.9 g/dL Low 13.4-16.8 [facility] Comment on above: Performed By: #### H EMO ####[facility] (DEFAULT)[address] [place] [address] MCV (RBC) [Entitic vol] 85.9 fL Normal 79.0-94.5 [facility] Comment on above: Performed By: #### H EMO ####[facility] (DEFAULT)[address] [place] [address] Mean Cell Hgb 26.6 pg Normal 26.1-33.3 [facility] Comment on above: Performed By: #### H EMO ####[facility] (DEFAULT)[address] [place] [address] Mean Cell Hgb Conc 31.0 g/dL Low 31.9-36.5 [facility] Comment on above: Performed By: #### H EMO ####[facility] (DEFAULT)[address] [place] [address] Platelet mean volume (Bld) [Entitic vol] 9.7 fL Normal 8.7-12.3 [facility] Comment on above: Performed By: #### H EMOGC ####[facility] (DEFAULT)[address] [place] [address] Platelets (Bld) [#/Vol] 181 10*3/uL Normal 146-337 [facility] Comment on above: Performed By: #### H EMO ####[facility] (DEFAULT)[address] [place] [address] RBC (Bld) [#/Vol] 4.47 10*6/uL Normal 4.38-5.83 [facility] Comment on above: Performed By: #### H EMO ####[facility] (DEFAULT)[address] [place] [address] RBC Distribution 13.4 % Normal 10.9-14.3 [facility] Comment on above: Performed By: #### H EMOGC ####[facility] (DEFAULT)[address] [place] [address] WBC (Bld) [#/Vol] 4.41 10*3/uL Normal 3.73-10.10 [facility] Comment on above: Performed By: #### H EMOGC ####[facility] (DEFAULT)[address] [place] [address], [place] [address] CHEM 7 (LYTES,BUN,CREA,GLUC) on 09-06-2023 Anion gap [Moles/Vol] 14 mmol/L 7 - 17 mmol/L [facility] Chloride [Moles/Vol] 109 mmol/L High 98 - 10 8 mmol/L [facility] CO2 [Moles/Vol] 19 mmol/L Low 21 - 31 mmol/L [facility] Creatinine [Mass/Vol] 1.26 mg/dL 0.70 - 1.30 mg/dL [facility] eGFR, CKD-EPI, Male 69 - PINF [facility] Glucose [Mass/Vol] 114 mg/dL High 70 - 99 mg/dL [facility] Osmolality Calc [Osmolality] 291 [facility] Potassium [Moles/Vol] 4.1 mmol/L 3.5 - 5.0 mmol/L [facility] Sodium [Moles/Vol] 138 mmol/L 135 - 145 mmol/L [facility] Urea nitrogen [Mass/Vol] 16 mg/dL 7 - 25 mg/dL [facility] Urea nitrogen/Creatinine [Mass ratio] 13 mg/mg [facility] Anion gap [Moles/Vol] 14 mmol/L Normal 7-17 [facility] Comment on above: Performed By: #### NATHANIEL RAMÍREZ, HFP ####[facility] (DEFAULT)[address] [place] [address] Chloride [Moles/Vol] 109 mmol/L High 98-108 [facility] Comment on above: Performed By: #### NATHANIEL RAMÍREZ, HFP ####[facility] (DEFAULT)[address] [place] [address] CO2 [Moles/Vol] 19 mmol/L Low 21-31 [facility] Comment on above: Performed By: #### NATHANIEL RAMÍREZ, HFP ####[facility] (DEFAULT)[address] [place] [address] Creatinine [Mass/Vol] 1.26 mg/dL Normal 0.70-1.30 [facility] Comment on above: Performed By: #### NATHANIEL RAMÍREZ, HFP ####[facility] (DEFAULT)[address] [place] [address] GFR/1.73 sq M.predicted among non-blacks MDRD (S/P/Bld) [Vol rate/Area] 69 mL/min/{1.73_m2} Normal >=60 [facility] Comment on above: Result Comment: Repo rted eGFR is based on the CKD-EPI 2020 equation using creatinine, age, and sex. Performed By: #### NATHANIEL RAMÍREZ, HFP ####[facility] (DEFAULT)[address] [place] [address] Glucose [Mass/Vol] 114 mg/dL High 70-99 [facility] Comment on above: Performed By: #### NATHANIEL RAMÍREZ, HFP ####[facility] (DEFAULT)[address] [place] [address] Osmolality [Osmolality] 291 mosm/kg Normal 278-305 [facility] Comment on above: Performed By: #### NATHANIEL RAMÍREZ, HFP ####[facility] (DEFAULT)[address] [place] [address] Potassium [Moles/Vol] 4.1 mmol/L Normal 3.5-5.0 [facility] Comment on above: Performed By: #### NATHANIEL RAMÍREZ, HFP ####[facility] (DEFAULT)[address] [place] [address] Sodium [Moles/Vol] 138 mmol/L Normal 135-145 [facility] Comment on above: Performed By: #### NATHANIEL RAMÍREZ, HFP ####[facility] (DEFAULT)[address] [place] [address] Urea nitrogen [Mass/Vol] 16 mg/dL Normal 7-25 [facility] Comment on above: Performed By: #### NATHANIEL RAMÍREZ, HFP ####[facility] (DEFAULT)[address] [place] [address] Urea nitrogen/Creatinine [Mass ratio] 13 mg/mg Normal [facility] Comment on above: Performed By: #### NATHANIEL RAMÍREZ, HFP ####[facility] (DEFAULT)[address] [place] [address] HEPATIC FUNCTION PANELon Albumin [Mass/Vol] 3.0 g/dL Low 3.5 - 5.0 g/dL [facility] ALP [Catalytic activity/Vol] 115 U/L 32 - 126 U/L [facility] ALT [Catalytic activity/Vol] 25 U/L 10 - 52 U/L [facility] AST [Catalytic activity/Vol] 31 U/L 10 - 39 U/L [facility] Bilirubin [Mass/Vol] 1.0 mg/dL NINF - 1.5 mg/dL [facility] Bilirubin.direct [Mass/Vol] 0.3 mg/dL High NINF - 0.3 mg/dL [facility] Protein [Mass/Vol] 6.3 g/dL Low 6.4 - 8.3 g/dL [facility] Albumin [Mass/Vol] 3.0 g/dL Low 3.5-5.0 [facility] Comment on above: Performed By: #### M MERLE CHM7, HFP ####[facility] (DEFAULT)[address] [place] [address] ALP [Catalytic activity/Vol] 115 U/L Normal 32-126 [facility] Comment on above: Performed By: #### M MERLE CHM7, HFP ####[facility] (DEFAULT)[address] [place] [address] ALT [Catalytic activity/Vol] 25 U/L Normal 10-52 [facility] Comment on above: Performed By: #### M MERLE CHM7, HFP ####[facility] (DEFAULT)[address] [place] [address] AST [Catalytic activity/Vol] 31 U/L Normal 10-39 [facility] Comment on above: Performed By: #### M MERLE, CHM7, HFP ####[facility] (DEFAULT)[address] [place] [address] Bilirubin [Mass/Vol] 1.0 mg/dL Normal <1.5 [facility] Comment on above: Performed By: #### NATHANIEL RAMÍREZ, HFP ####[facility] (DEFAULT)[address] [place] [address] Bilirubin.indirect [Mass/Vol] 0.3 mg/dL High <0.3 [facility] Comment on above: Performed By: #### NATHANIEL RAMÍREZ, HFP ####[facility] (DEFAULT)[address] [place] [address] Protein [Mass/Vol] 6.3 g/dL Low 6.4-8.3 [facility] Comment on above: Performed By: #### NATHANIEL RAMÍREZ, HFP ####[facility] (DEFAULT)[address] [place] [address] MAGNESIUMon 09-06-2023 Interpretation and review of laboratory results Normal [facility] Magnesium [Mass/Vol] 2.0 mg/dL 1.6 - 2 .6 mg/dL [facility] Magnesium [Mass/Vol] 2.0 mg/dL Normal 1.6-2.6 [facility] Comment on above: Performed By: #### NATHANIEL RAMÍREZ, HFP ####[facility] (DEFAULT)[address] [place] [address] No Panel Informationon 09-06 Interpretation and review of laboratory results Abnormal [facility] TACROLIMUS LEVEL, TROUGH (IL E DRUG LEVEL)on 09-06-2023 Interpretation and review of laboratory results Normal [facility] Tacrolimus (Bld) [Mass/Vol] 6.7 ng/mL [facility] Tacrolimus, Trough 6.7 ng/mL Normal Bone Susana ow Transplant: 4.0-12.0, Therapeutic: 5.0-15.0 [facility] Comment on above: Order Comment: Pleas e draw at specified interval PRIOR to dose. Do not hold dose to wait for level. Specimens batched twice per day, (M-F) and once per day weekendsMethod performed is a chemiluminescent microparticle immunoasssay on the [employer] i2000.The range is based on experience at [facility] and users should be aware that target concentrations vary widely depending on concomitant therapy, time post-transplant, and desired degree of immunosuppression. Performed By: #### T ACRO ####[facility] (DEFAULT)[address] [place] [address] CBC,PLATELETSon 09-05-2023 Erythrocyte distribution width (RBC) [Ratio] 13.5 % 10.9 - 14.3 % [facility] Hematocrit (Bld) [Volume fraction] 35.6 % Low 39.6 - 48.8 % [facility] Hemoglobin (Bld) [Mass/Vol] 11.4 g/dL Low 13.4 - 16.8 g/dL [facility] Interpretation and review of laboratory results Abnormal [facility] MCH (RBC) [Entitic mass] 27.5 pg 26.1 - 33.3 pg [facility] MCHC (RBC) [Mass/Vol] 32.0 g/dL 31.9 - 36.5 g/dL [facility] MCV (RBC) [Entitic vol] 86.0 fL 79.0 - 94.5 fL [facility] Platelet mean volume (Bld) [Entitic vol] 10.0 fL 8.7 - 12.3 fL [facility] Platelets (Bld) [#/Vol] 170 10*3/uL 146 - 337 K/uL [facility] RBC (Bld) [#/Vol] 4.14 10*6/uL Low [facility] WBC (Bld) [#/Vol] 4.24 10*3/uL 3.73 - 10. 10 K/uL [facility] Hematocrit (Bld) [Volume fraction] 35.6 % Low 39.6-48.8 [facility] Comment on above: Performed By: #### [facility] ####[facility] (DEFAULT)[address] [place] [address] Hemoglobin (Bld) [Mass/Vol] 11.4 g/dL Low 13.4-16.8 [facility] Comment on above: Performed By: #### H EMOGC ####[facility] (DEFAULT)[address] [place] [address] MCV (RBC) [Entitic vol] 86.0 fL Normal 79.0-94.5 [facility] Comment on above: Performed By: #### H EMOGC ####[facility] (DEFAULT)[address] [place] [address] Mean Cell Hgb 27.5 pg Normal 26.1-33.3 [facility] Comment on above: Performed By: #### H EMOGC ####[facility] (DEFAULT)[address] [place] [address] Mean Cell Hgb Conc 32.0 g/dL Normal 31.9-36.5 [facility] Comment on above: Performed By: #### H EMOGC ####[facility] (DEFAULT)[address] [place] [address] Platelet mean volume (Bld) [Entitic vol] 10.0 fL Normal 8.7-12.3 [facility] Comment on above: Performed By: #### H EMOGC ####[facility] (DEFAULT)[address] [place] [address] Platelets (Bld) [#/Vol] 170 10*3/uL Normal 146-337 [facility] Comment on above: Performed By: #### H EMOGC ####[facility] (DEFAULT)[address] [place] [address] RBC (Bld) [#/Vol] 4.14 10*6/uL Low 4.38-5.83 [facility] Comment on above: Performed By: #### H EMOGC ####[facility] (DEFAULT)[address] [place] [address] RBC Distribution 13.5 % Normal 10.9-14.3 [facility] Comment on above: Performed By: #### [facility] ####[facility] (DEFAULT)[address] [place] [address] WBC (Bld) [#/Vol] 4.24 10*3/uL Normal 3.73-10.10 [facility] Comment on above: Performed By: #### [facility] ####[facility] (DEFAULT)[address] [place] [address] CHEM 7 (LYTES,BUN,CREA,GLUC) on 09-05-2023 Anion gap [Moles/Vol] 12 mmol/L 7 - 17 mmol/L [facility] Chloride [Moles/Vol] 107 mmol/L 98 - 10 8 mmol/L [facility] CO2 [Moles/Vol] 20 mmol/L Low 21 - 31 mmol/L [facility] Creatinine [Mass/Vol] 1.43 mg/dL High 0.70 - 1.30 mg/dL [facility] eGFR, CKD-EPI, Male 60 Low - PINF [facility] Glucose [Mass/Vol] 111 mg/dL High 70 - 99 mg/dL [facility] Osmolality Calc [Osmolality] 286 [facility] Potassium [Moles/Vol] 4.2 mmol/L 3.5 - 5.0 mmol/L [facility] Sodium [Moles/Vol] 135 mmol/L 135 - 145 mmol/L [facility] Urea nitrogen [Mass/Vol] 18 mg/dL 7 - 25 mg/dL [facility] Urea nitrogen/Creatinine [Mass ratio] 13 mg/mg [facility] Anion gap [Moles/Vol] 12 mmol/L Normal 7-17 [facility] Comment on above: Performed By: #### H FP, CHM7, MGO ####[facility] (DEFAULT)[address] [place] [address] Chloride [Moles/Vol] 107 mmol/L Normal 98-108 [facility] Comment on above: Performed By: #### H NATHANIEL MONCADA, MGO ####[facility] (DEFAULT)[address] [place] [address] CO2 [Moles/Vol] 20 mmol/L Low 21-31 [facility] Comment on above: Performed By: #### H NATHANIEL MONCADA, MGO ####[facility] (DEFAULT)[address] [place] [address] Creatinine [Mass/Vol] 1.43 mg/dL High 0.70-1.30 [facility] Comment on above: Performed By: #### H NATHANIEL MONCADA, MGO ####[facility] (DEFAULT)[address] [place] [address] GFR/1.73 sq M.predicted among non-blacks MDRD (S/P/Bld) [Vol rate/Area] 59 mL/min/{1.73_m2} Low >=60 [facility] Comment on above: Result Comment: Repo rted eGFR is based on the CKD-EPI 2020 equation using creatinine, age, and sex. Performed By: #### H NATHANIEL MONCADA, MGO ####[facility] (DEFAULT)[address] [place] [address] Glucose [Mass/Vol] 111 mg/dL High 70-99 [facility] Comment on above: Performed By: #### H NATHANIEL MONCADA, MGO ####[facility] (DEFAULT)[address] [place] [address] Osmolality [Osmolality] 286 mosm/kg Normal 278-305 [facility] Comment on above: Performed By: #### H NATHANIEL MONCADA, MGO ####[facility] (DEFAULT)[address] [place] [address] Potassium [Moles/Vol] 4.2 mmol/L Normal 3.5-5.0 [facility] Comment on above: Performed By: #### H ANTWAN, CHM7, MGO ####[facility] (DEFAULT)[address] [place] [address] Sodium [Moles/Vol] 135 mmol/L Normal 135-145 [facility] Comment on above: Performed By: #### H ANTWAN, CHM7, MGO ####[facility] (DEFAULT)[address] [place] [address] Urea nitrogen [Mass/Vol] 18 mg/dL Normal 7-25 [facility] Comment on above: Performed By: #### H ANTWAN, CHM7, MGO ####[facility] (DEFAULT)[address] [place] [address] Urea nitrogen/Creatinine [Mass ratio] 13 mg/mg Normal [facility] Comment on above: Performed By: #### H ANTWAN, CHM7, MGO ####[facility] (DEFAULT)[address] [place] [address] CONTINUOUS CARDIAC MONITORIN G STRIPon 09-05-2023 [facility] HEPATIC FUNCTION PANELon Albumin [Mass/Vol] 2.8 g/dL Low 3.5 - 5.0 g/dL [facility] ALP [Catalytic activity/Vol] 103 U/L 32 - 126 U/L [facility] ALT [Catalytic activity/Vol] 26 U/L 10 - 52 U/L [facility] AST [Catalytic activity/Vol] 38 U/L 10 - 39 U/L [facility] Bilirubin [Mass/Vol] 0.9 mg/dL [facility] mg/dL [facility] Bilirubin.direct [Mass/Vol] 0.1 mg/dL NINF - 0.3 mg/dL [facility] Protein [Mass/Vol] 6.1 g/dL Low 6.4 - 8.3 g/dL [facility] Albumin [Mass/Vol] 2.8 g/dL Low 3.5-5.0 [facility] Comment on above: Performed By: #### H FP, CHM7, MGO ####[facility] (DEFAULT)[address] [place] [address] ALP [Catalytic activity/Vol] 103 U/L Normal 32-126 [facility] Comment on above: Performed By: #### H FP, CHM7, MGO ####[facility] (DEFAULT)[address] [place] [address] ALT [Catalytic activity/Vol] 26 U/L Normal 10-52 [facility] Comment on above: Performed By: #### H FP, CHM7, MGO ####[facility] (DEFAULT)[address] [place] [address] AST [Catalytic activity/Vol] 38 U/L Normal 10-39 [facility] Comment on above: Performed By: #### H FP, CHM7, MGO ####[facility] (DEFAULT)[address] [place] [address] Bilirubin [Mass/Vol] 0.9 mg/dL Normal <1.5 [facility] Comment on above: Performed By: #### H FP, CHM7, MGO ####[facility] (DEFAULT)[address] [place] [address] Bilirubin.indirect [Mass/Vol] 0.1 mg/dL Normal <0.3 [facility] Comment on above: Performed By: #### H FP, CHM7, MGO ####[facility] (DEFAULT)[address] [place] [address] Protein [Mass/Vol] 6.1 g/dL Low 6.4-8.3 [facility] Comment on above: Performed By: #### H FP, CHM7, MGO ####[facility] (DEFAULT)[address] [place] [address] HISTOPLASMA ANTIGEN, FLUIDon 09-05-2023 FH SOURCE BAL RML [facility] Histo FLD interpretation Negative [facility] Histoplasma Antigen, FLUID Not detected ng/mL [facility] HISTOPLASMA CAPSULATUM/BLAST OMYCES SPECIES,PCR FLUIDon 09-05-2023 HISTO/BLASTO RESULT Negative Not Applicable [facility] Specimen source Nom (Unsp spec) BAL RML [facility] IMMUNOPHENOTYPING, TISSUE/FL UIDon 09-05-2023 BKR DX CODE Use Ordering [facility] Flow Interpretation See Comment [facility] Flow Interpreted by: Yossi Perla MD, PhD [facility] MAGNESIUMon 09-05-2023 Interpretation and review of laboratory results Normal [facility] Magnesium [Mass/Vol] 1.7 mg/dL 1.6 - 2 .6 mg/dL [facility] Magnesium [Mass/Vol] 1.7 mg/dL Normal 1.6-2.6 [facility] Comment on above: Performed By: #### H , M7, MGO ####[facility] (DEFAULT)[address] [place] [address] No Panel Informationon 09-05 Interpretation and review of laboratory results Abnormal [facility] TACROLIMUS LEVEL, TROUGH (IL E DRUG LEVEL)Ordered By: Raymundo Mehta on 09-05-2023 Interpretation and review of laboratory results Normal [facility] Tacrolimus (Bld) [Mass/Vol] 5.3 ng/mL [facility] TACROLIMUS LEVEL, TROUGH (IL E DRUG LEVEL)on 09-05-2023 Tacrolimus, Trough 5.3 ng/mL Normal Bone Susana ow Transplant: 4.0-12.0, Therapeutic: 5.0-15.0 [facility] Comment on above: Order Comment: Pleas e draw at specified interval PRIOR to dose. Do not hold dose to wait for level. Specimens batched twice per day, (M-F) and once per day weekendsMethod performed is a chemiluminescent microparticle immunoasssay on the [employer] i2000.The range is based on experience at [facility] and users should be aware that target concentrations vary widely depending on concomitant therapy, time post-transplant, and desired degree of immunosuppression. Performed By: #### T ACRO ####[facility] (DEFAULT)[address] [place] [address] ARTERIAL BLOOD GAS (FULL GOSS EL)on 09-04-2023 Base excess Calc (Bld) [Moles/Vol] -1.2000 mmol/L -3.0 - 3.0 mmol/L [facility] Calcium.ionized (Bld) [Mass/Vol] 4.79 mg/dL 4.60 - 5.30 mg/dL [facility] Carboxyhemoglobin (Bld) [Mass fraction] 0.7 % NINF - 1.5 % [facility] CO2 (Bld) [Partial pressure] 30 mm[Hg] Low [facility] Glucose [Mass/Vol] 159 mg/dL High 70 - 99 mg/dL [facility] HCO3 (Bld) [Moles/Vol] 22 mmol/L 22 - 28 mmol/L [facility] Hematocrit (Bld) [Volume fraction] 38.0 % Low 40.2 - 50.4 % [facility] Hemoglobin (Bld) [Mass/Vol] 12.6 g/dL Low 13.4 - 16.8 g/dL [facility] Interpretation and review of laboratory results Abnormal [facility] Lactate [Moles/Vol] 2.0 mmol/L High 0.5 - 1. 6 mmol/L [facility] Methemoglobin (Bld) [Mass fraction] 0.0 % NINF - 1.5 % [facility] Oxygen (Bld) [Partial pressure] 62 mm[Hg] Low [facility] Oxygen saturation in Blood 92 % Low 94 - 98 % [facility] Oxyhemoglobin 91 % Low 94 - 98 % [facility] pH (Bld) 7.48 [pH] High 7.35 - 7.45 [facility] Potassium [Moles/Vol] 4.2 mmol/L 3.5 - 5.0 mmol/L [facility] Sodium [Moles/Vol] 130 mmol/L Low 135 - 145 mmol/L [facility] Specimen source Nom (Unsp spec) Arterial [facility] Base Excess -1.2 mmol/L Normal -3.0-3.0 [facility] Comment on above: Performed By: #### G YASMINE ####[facility] (DEFAULT)[address] [place] [address], [place] [address] Carboxyhemoglobin 0.7 % Normal <=1.5 [facility] Comment on above: Performed By: #### Vale UNDERWOOD ####[facility] (DEFAULT)[address] [place] [address], [place] [address] Glucose [Mass/Vol] 159 mg/dL High 70-99 [facility] Comment on above: Performed By: #### Vale UNDERWOOD ####[facility] (DEFAULT)[address] [place] [address], [place] [address] HCO3 (Bld) [Moles/Vol] 22 mmol/L Normal 22-28 [facility] Comment on above: Performed By: #### G YASMINE ####[facility] (DEFAULT)[address] [place] [address], [place] [address] Hematocrit (Bld) [Volume fraction] 38.0 % Low 40.2-50.4 [facility] Comment on above: Performed By: #### G YASMINE ####[facility] (DEFAULT)[address] [place] [address], [place] [address] Hemoglobin (Bld) [Mass/Vol] 12.6 g/dL Low 13.4-16.8 [facility] Comment on above: Performed By: #### G ASALL ####[facility] (DEFAULT)[address] [place] [address] Ionized Calcium, Whole Blood 4.79 mg/dL Normal 4.60-5.30 [facility] Comment on above: Performed By: #### Vale UNDERWOOD ####[facility] (DEFAULT)[address] [place] [address] Lactate, Whole Blood 2.0 mmol/L High 0.5-1.6 [facility] Comment on above: Performed By: #### Vale UNDERWOOD ####[facility] (DEFAULT)[address] [place] [address] Methemoglobin 0.0 % Normal <=1.5 [facility] Comment on above: Performed By: #### Vale UNDERWOOD ####[facility] (DEFAULT)[address] [place] [address] Oxyhemoglobin 91 % Low 94-98 [facility] Comment on above: Performed By: #### Vale UNDERWOOD ####[facility] (DEFAULT)[address] [facility] [place] [address] pCO2 30 mm Hg Low 32-48 [facility] Comment on above: Performed By: #### Vale UNDERWOOD ####[facility] (DEFAULT)[address] [place] [address] pH (Bld) 7.48 [pH] High 7.35-7.45 [facility] Comment on above: Performed By: #### Vale UNDERWOOD ####[facility] (DEFAULT)[address] [place] [address] pO2 62 mm Hg Low 83-108 [facility] Comment on above: Performed By: #### Vale UNDERWOOD ####[facility] (DEFAULT)[address] [place] [address] Potassium [Moles/Vol] 4.2 mmol/L Normal 3.5-5.0 [facility] Comment on above: Performed By: #### Vale UNDERWOOD ####[facility] (DEFAULT)[address] [place] [address] sO2 92 % Low 94-98 [facility] Comment on above: Performed By: #### G YASMINE ####[facility] (DEFAULT)[address] [place] [address] Sodium [Moles/Vol] 130 mmol/L Low 135-145 [facility] Comment on above: Performed By: #### G YASMINE ####[facility] (DEFAULT)[address] [place] [address] Specimen type Nom (Spec) Arterial Normal [facility] Comment on above: Performed By: #### G YASMINE ####[facility] (DEFAULT)[address] [place] [address] Bacteria identified Respirat ory culture Nom (Unsp spec)on 09-04-2023 Bacteria identified Cx Nom (Unsp spec) NO GROWTH DAY 2 OF 2 [facility] Microscopic observation Other stain Nom (Unsp spec) Cytocentrifuge preparation [facility] Microscopic observation Other stain Nom (Unsp spec) Neutrophils, Rare [facility] Microscopic observation Other stain Nom (Unsp spec) Red Blood Cells Present [facility] Microscopic observation Other stain Nom (Unsp spec) No organisms seen [facility] Bacteria identified Respirat ory culture Nom (Unsp spec)Ordered By: Jose Salgado on 09-04-2023 Bacteria identified Cx Nom (Unsp spec) NO GROWTH DAY 2 OF 2 [facility] Microscopic observation Other stain Nom (Unsp spec) Cytocentrifuge preparation [facility] Microscopic observation Other stain Nom (Unsp spec) Neutrophils, Moderate [facility] Microscopic observation Other stain Nom (Unsp spec) Red Blood Cells Present [facility] Microscopic observation Other stain Nom (Unsp spec) No organisms seen [facility] CBC,PLATELETSon 09-04-2023 Erythrocyte distribution width (RBC) [Ratio] 13.2 % 10.9 - 14.3 % [facility] Hematocrit (Bld) [Volume fraction] 38.7 % Low 39.6 - 48.8 % [facility] Hemoglobin (Bld) [Mass/Vol] 12.3 g/dL Low 13.4 - 16.8 g/dL [facility] Interpretation and review of laboratory results Abnormal [facility] MCH (RBC) [Entitic mass] 27.9 pg 26.1 - 33.3 pg [facility] MCHC (RBC) [Mass/Vol] 31.8 g/dL Low 31.9 - 36.5 g/dL [facility] MCV (RBC) [Entitic vol] 87.8 fL 79.0 - 94.5 fL [facility] Platelet mean volume (Bld) [Entitic vol] 9.8 fL 8.7 - 12.3 fL [facility] Platelets (Bld) [#/Vol] 173 10*3/uL 146 - 337 K/uL [facility] RBC (Bld) [#/Vol] 4.41 10*6/uL [facility] WBC (Bld) [#/Vol] 4.57 10*3/uL 3.73 - 10. 10 K/uL [facility] Hematocrit (Bld) [Volume fraction] 38.7 % Low 39.6-48.8 [facility] Comment on above: Performed By: #### [facility] ####[facility] (DEFAULT)[address] [place] [address] Hemoglobin (Bld) [Mass/Vol] 12.3 g/dL Low 13.4-16.8 [facility] Comment on above: Performed By: #### [facility] ####[facility] (DEFAULT)[address] [place] [address] MCV (RBC) [Entitic vol] 87.8 fL Normal 79.0-94.5 [facility] Comment on above: Performed By: #### [facility] ####[facility] (DEFAULT)[address] [place] [address] Mean Cell Hgb 27.9 pg Normal 26.1-33.3 [facility] Comment on above: Performed By: #### H EMOGC ####[facility] (DEFAULT)[address] [place] [address] Mean Cell Hgb Conc 31.8 g/dL Low 31.9-36.5 [facility] Comment on above: Performed By: #### H EMOGC ####[facility] (DEFAULT)[address] [place] [address] Platelet mean volume (Bld) [Entitic vol] 9.8 fL Normal 8.7-12.3 [facility] Comment on above: Performed By: #### H EMOGC ####[facility] (DEFAULT)[address] [place] [address] Platelets (Bld) [#/Vol] 173 10*3/uL Normal 146-337 [facility] Comment on above: Performed By: #### H EMOGC ####[facility] (DEFAULT)[address] [place] [address] RBC (Bld) [#/Vol] 4.41 10*6/uL Normal 4.38-5.83 [facility] Comment on above: Performed By: #### H EMOGC ####[facility] (DEFAULT)[address] [place] [address] RBC Distribution 13.2 % Normal 10.9-14.3 [facility] Comment on above: Performed By: #### H EMOGC ####[facility] (DEFAULT)[address] [place] [address] WBC (Bld) [#/Vol] 4.57 10*3/uL Normal 3.73-10.10 [facility] Comment on above: Performed By: #### H EMOGC ####[facility] (DEFAULT)[address] [place] [address] CHEM 7 (LYTES,BUN,CREA,GLUC) on 09-04-2023 Anion gap [Moles/Vol] 16 mmol/L 7 - 17 mmol/L [facility] Chloride [Moles/Vol] 104 mmol/L 98 - 10 8 mmol/L [facility] CO2 [Moles/Vol] 18 mmol/L Low 21 - 31 mmol/L [facility] Creatinine [Mass/Vol] 1.22 mg/dL 0.70 - 1.30 mg/dL [facility] eGFR, CKD-EPI, Male 71 - [facility]F [facility] Glucose [Mass/Vol] 124 mg/dL High 70 - 99 mg/dL [facility] Osmolality Calc [Osmolality] 284 [facility] Potassium [Moles/Vol] 3.9 mmol/L 3.5 - 5.0 mmol/L [facility] Sodium [Moles/Vol] 134 mmol/L Low 135 - 145 mmol/L [facility] Urea nitrogen [Mass/Vol] 15 mg/dL 7 - 25 mg/dL [facility] Urea nitrogen/Creatinine [Mass ratio] 12 mg/mg [facility] Anion gap [Moles/Vol] 16 mmol/L Normal 7-17 [facility] Comment on above: Performed By: #### TJ RAMÍREZ7, HFP ####[facility] (DEFAULT)[address] [place] [address] Chloride [Moles/Vol] 104 mmol/L Normal 98-108 [facility] Comment on above: Performed By: #### Rod BLOOM CHM7, HFP ####[facility] (DEFAULT)[address] [place] [address] CO2 [Moles/Vol] 18 mmol/L Low 21-31 [facility] Comment on above: Performed By: #### Rod BLOOM CHM7, HFP ####[facility] (DEFAULT)[address] [place] [address] Creatinine [Mass/Vol] 1.22 mg/dL Normal 0.70-1.30 [facility] Comment on above: Performed By: #### NATHANIEL RAMÍREZ, HFP ####[facility] (DEFAULT)[address] [place] [address] GFR/1.73 sq M.predicted among non-blacks MDRD (S/P/Bld) [Vol rate/Area] 71 mL/min/{1.73_m2} Normal >=60 [facility] Comment on above: Result Comment: Repo rted eGFR is based on the CKD-EPI 2020 equation using creatinine, age, and sex. Performed By: #### NATHANIEL RAMÍREZ, HFP ####[facility] (DEFAULT)[address] [place] [address] Glucose [Mass/Vol] 124 mg/dL High 70-99 [facility] Comment on above: Performed By: #### NATHANIEL RAMÍREZ, HFP ####[facility] (DEFAULT)[address] [place] [address] Osmolality [Osmolality] 284 mosm/kg Normal 278-305 [facility] Comment on above: Performed By: #### NATHANIEL RAMÍREZ, HFP ####[facility] (DEFAULT)[address] [place] [address] Potassium [Moles/Vol] 3.9 mmol/L Normal 3.5-5.0 [facility] Comment on above: Performed By: #### NATHANIEL RAMÍREZ, HFP ####[facility] (DEFAULT)[address] [place] [address] Sodium [Moles/Vol] 134 mmol/L Low 135-145 [facility] Comment on above: Performed By: #### NATHANIEL RAMÍREZ, HFP ####[facility] (DEFAULT)[address] [place] [address] Urea nitrogen [Mass/Vol] 15 mg/dL Normal 7-25 [facility] Comment on above: Performed By: #### M NATHANIEL BLOOM, HFP ####[facility] (DEFAULT)[address] [place] [address] Urea nitrogen/Creatinine [Mass ratio] 12 mg/mg Normal [facility] Comment on above: Performed By: #### M NATHANIEL BLOOM, HFP ####[facility] (DEFAULT)[address] [place] [address] CMV PCR,FLUIDS,URINE,EYE ETC on 09-04-2023 Specimen source Nom (Unsp spec) BAL LLL [facility] Specimen source Nom (Unsp spec) BAL RML [facility] HEPATIC FUNCTION PANELon Albumin [Mass/Vol] 3.0 g/dL Low 3.5 - 5.0 g/dL [facility] ALP [Catalytic activity/Vol] 112 U/L 32 - 126 U/L [facility] ALT [Catalytic activity/Vol] 22 U/L 10 - 52 U/L [facility] AST [Catalytic activity/Vol] 30 U/L 10 - 39 U/L [facility] Bilirubin [Mass/Vol] 1.2 mg/dL NINF - 1.5 mg/dL [facility] Bilirubin.direct [Mass/Vol] 0.4 mg/dL High NINF - 0.3 mg/dL [facility] Protein [Mass/Vol] 6.4 g/dL 6.4 - 8.3 g/dL [facility] Albumin [Mass/Vol] 3.0 g/dL Low 3.5-5.0 [facility] Comment on above: Performed By: #### M NATHANIEL BLOOM, HFP ####U [facility] (DEFAULT)[address] [place] [address] ALP [Catalytic activity/Vol] 112 U/L Normal 32-126 [facility] Comment on above: Performed By: #### M NATHANIEL BLOOM, HFP ####U [facility] (DEFAULT)[address] [place] [address] ALT [Catalytic activity/Vol] 22 U/L Normal 10-52 [facility] Comment on above: Performed By: #### NATHANIEL RAMÍREZ, HFP ####[facility] (DEFAULT)[address] [place] [address] AST [Catalytic activity/Vol] 30 U/L Normal 10-39 [facility] Comment on above: Performed By: #### NATHANIEL RAMÍREZ, HFP ####[facility] (DEFAULT)[address] [place] [address] Bilirubin [Mass/Vol] 1.2 mg/dL Normal <1.5 [facility] Comment on above: Performed By: #### NATHANIEL RAMÍREZ, HFP ####[facility] (DEFAULT)[address] [place] [address] Bilirubin.indirect [Mass/Vol] 0.4 mg/dL High <0.3 [facility] Comment on above: Performed By: #### NATHANIEL RAMÍREZ, HFP ####[facility] (DEFAULT)[address] [place] [address] Protein [Mass/Vol] 6.4 g/dL Normal 6.4-8.3 [facility] Comment on above: Performed By: #### NATHANIEL RAMÍREZ, HFP ####[facility] (DEFAULT)[address] [place] [address] LEGIONELLA PCRon 09-04-2023 Legionella sp rRNA Probe Ql (Unsp spec) Negative Not Applicable [facility] Specimen source Nom (Unsp spec) BAL RML [facility] - Microbiology an d Antimicrobial susceptibilityon 09-04-2023 CMV DNA ESTELITA+probe Ql (Unsp spec) Negative Negative [facility] MAGNESIUMon 09-04-2023 Magnesium [Mass/Vol] 1.4 mg/dL Low 1.6 - 2 .6 mg/dL [facility] Magnesium [Mass/Vol] 1.4 mg/dL Low 1.6-2.6 [facility] Comment on above: Performed By: #### M , CHM7, [facility] ####[facility] (DEFAULT)[address] [place] [address] No Panel Informationon 09-04 Annotation comment [Interpretation] Narrative DNR [facility] PN Report Status DNR [facility] Pneumocystis jiroveci,PCR result Negative Not Applicable [facility] Interpretation and review of laboratory results Abnormal [facility] PNEUMOCYSTIS JIROVECI,PCRon 09-04-2023 Specimen source Nom (Unsp spec) BAL LLL [facility] Specimen source Nom (Unsp spec) BAL RML [facility] Portable XR Chest Viewson RADIOLOGY RADIOLOGY [facility] Radiology Study observation (narrative) [facility] Portable XR Chest ViewsOrder ed By: Joanie Nugent on 09-04-2023 [facility] Work Phone: TACROLIMUS LEVEL, TROUGH (IL E DRUG LEVEL)on 09-04-2023 Interpretation and review of laboratory results Abnormal [facility] Tacrolimus (Bld) [Mass/Vol] 3.6 ng/mL Low [facility] Tacrolimus, Trough 3.6 ng/mL Low Bone Susana ow Transplant: 4.0-12.0, Therapeutic: 5.0-15.0 [facility] Comment on above: Order Comment: Pleas e draw at specified interval PRIOR to dose. Do not hold dose to wait for level. Specimens batched twice per day, (M-F) and once per day weekendsMethod performed is a chemiluminescent microparticle immunoasssay on the [employer]rick[employer] Tender i2000.The range is based on experience at [facility] and users should be aware that target concentrations vary widely depending on concomitant therapy, time post-transplant, and desired degree of immunosuppression. Performed By: #### T ACRO ####[facility] (DEFAULT)[address] [place] [address] XR CHEST PORTABLEon 09-04-20 XR CHEST PORTABLE Normal [facility] ASPERGILLUS ANTIGEN, BALon 1 Galactomannan Ag IA Qn (Unsp spec) <0.500 NINF [facility] Galactomannan Ag IA Qn (Unsp spec) <0.500 NINF [facility] BAL CONSULTOrdered By: Noa Peralta on 09-03-2023 ALVEOLAR MACROPHAGES 32 % [facility] Work Phone: Bal comments Correlation with microbiology stains and cultures is recommended. [facility] Work Phone: Bal Diff Quik Stain Quality Check Acceptable [facility] Work Phone: BKR BAL INTERPRETATION Cellular specimen comprised of alveolar macrophages and small lymphocytes. No definitive microorganisms are observed. Moderate degenerative changes. [facility] Work Phone: BKR DX CODE Use Ordering [facility] Work Phone: Eosinophils Patterson stain Ql (Unsp spec) 0 % [facility] Work Phone: Lymphocytes/100 WBC (Bld) 57 % [facility] Work Phone: Neutrophils/100 WBC Manual cnt (Bronch spec) 11 % [facility] Work Phone: Pathologist review Jame (Unsp spec) [Interp] Leonardo Peralta MD [facility] Work Phone: [facility] Work Phone: BAL CONSULTon 09-03-2023 ALVEOLAR MACROPHAGES 33 % [facility] Bal comments Correlation with microbiology stains and cultures is recommended. Correlation with viral studies is recommended. [facility] Bal Diff Quik Stain Quality Check Acceptable [facility] BKR BAL INTERPRETATION Cellular specimen comprised of alveolar macrophages and small lymphocytes. No definitive microorganisms are observed. Rare degenerating cells with changes suggestive of viral cytopathic effect are noted. Moderate degenerative changes. [facility] BKR DX CODE Use Ordering [facility] Eosinophils Patterson stain Ql (Unsp spec) 0 % [facility] Lymphocytes/100 WBC (Bld) 49 % [facility] Neutrophils/100 WBC Manual cnt (Bronch spec) 18 % [facility] Pathologist review Jame (Unsp spec) [Interp] Leonardo Peralta MD [facility] BRONCHOSCOPYon 09-03-2023 LAB, [facility] CBC,PLATELETSon 09-03-2023 Erythrocyte distribution width (RBC) [Ratio] 13.4 % 10.9 - 14.3 % [facility] Hematocrit (Bld) [Volume fraction] 39.6 % 39.6 - 48.8 % [facility] Hemoglobin (Bld) [Mass/Vol] 12.8 g/dL Low 13.4 - 16.8 g/dL [facility] Interpretation and review of laboratory results Abnormal [facility] MCH (RBC) [Entitic mass] 27.8 pg 26.1 - 33.3 pg [facility] MCHC (RBC) [Mass/Vol] 32.3 g/dL 31.9 - 36.5 g/dL [facility] MCV (RBC) [Entitic vol] 85.9 fL 79.0 - 94.5 fL [facility] Platelet mean volume (Bld) [Entitic vol] 9.4 fL 8.7 - 12.3 fL [facility] Platelets (Bld) [#/Vol] 222 10*3/uL 146 - 337 K/uL [facility] RBC (Bld) [#/Vol] 4.61 10*6/uL [facility] WBC (Bld) [#/Vol] 4.36 10*3/uL 3.73 - 10. 10 K/uL [facility] Hematocrit (Bld) [Volume fraction] 39.6 % Normal 39.6-48.8 [facility] Comment on above: Performed By: #### H EMOGC ####[facility] (DEFAULT)[address] [place] [address] Hemoglobin (Bld) [Mass/Vol] 12.8 g/dL Low 13.4-16.8 [facility] Comment on above: Performed By: #### H EMOGC ####[facility] (DEFAULT)[address] [place] [address] MCV (RBC) [Entitic vol] 85.9 fL Normal 79.0-94.5 [facility] Comment on above: Performed By: #### H EMOGC ####[facility] (DEFAULT)[address] [place] [address] Mean Cell Hgb 27.8 pg Normal 26.1-33.3 [facility] Comment on above: Performed By: #### H EMOGC ####[facility] (DEFAULT)[address] [place] [address] Mean Cell Hgb Conc 32.3 g/dL Normal 31.9-36.5 [facility] Comment on above: Performed By: #### H EMOGC ####[facility] (DEFAULT)[address] [place] [address] Platelet mean volume (Bld) [Entitic vol] 9.4 fL Normal 8.7-12.3 [facility] Comment on above: Performed By: #### H EMOGC ####[facility] (DEFAULT)[address] [place] [address] Platelets (Bld) [#/Vol] 222 10*3/uL Normal 146-337 [facility] Comment on above: Performed By: #### H EMOGC ####[facility] (DEFAULT)[address] [place] [address] RBC (Bld) [#/Vol] 4.61 10*6/uL Normal 4.38-5.83 [facility] Comment on above: Performed By: #### [facility] ####[facility] (DEFAULT)[address] [place] [address] RBC Distribution 13.4 % Normal 10.9-14.3 [facility] Comment on above: Performed By: #### [facility] ####[facility] (DEFAULT)[address] [place] [address] WBC (Bld) [#/Vol] 4.36 10*3/uL Normal 3.73-10.10 [facility] Comment on above: Performed By: #### [facility] ####[facility] (DEFAULT)[address] [place] [address] CHEM 7 (LYTES,BUN,CREA,GLUC) on 09-03-2023 Anion gap [Moles/Vol] 12 mmol/L 7 - 17 mmol/L [facility] Chloride [Moles/Vol] 104 mmol/L 98 - 10 8 mmol/L [facility] CO2 [Moles/Vol] 24 mmol/L 21 - 31 mmol/L [facility] Creatinine [Mass/Vol] 1.20 mg/dL 0.70 - 1.30 mg/dL [facility] eGFR, CKD-EPI, [facility] 74 [facility] Glucose [Mass/Vol] 112 mg/dL High 70 - 99 [facility] Osmolality Calc [Osmolality] 288 [facility] Potassium [Moles/Vol] 4.1 mmol/L 3.5 - 5.0 mmol/L [facility] Sodium [Moles/Vol] 136 mmol/L 135 - 145 mmol/L [facility] Urea nitrogen [Mass/Vol] 17 mg/dL 7 - 25 mg[facility] Urea nitrogen/Creatinine [Mass ratio] 14 mg[facility] Anion gap [Moles/Vol] 12 mmol/L Normal 7-17 [facility] Comment on above: Performed By: #### M NATHANIEL BLOOM, HFP ####U [facility] (DEFAULT)[address] [place] [address] Chloride [Moles/Vol] 104 mmol/L Normal 98-108 [facility] Comment on above: Performed By: #### M NATHANIEL BLOOM, HFP ####U [facility] (DEFAULT)[address] [place] [address] CO2 [Moles/Vol] 24 mmol/L Normal 21-31 [facility] Comment on above: Performed By: #### M NATHANIEL BLOOM, HFP ####U [facility] (DEFAULT)[address] [place] [address] Creatinine [Mass/Vol] 1.20 mg/dL Normal 0.70-1.30 [facility] Comment on above: Performed By: #### NATHANIEL RAMÍREZ, HFP ####U [facility] (DEFAULT)[address] [place] [address] GFR/1.73 sq M.predicted among non-blacks MDRD (S/P/Bld) [Vol rate/Area] 73 mL/min/{1.73_m2} Normal >=60 [facility] Comment on above: Result Comment: Repo rted eGFR is based on the CKD-EPI 2020 equation using creatinine, age, and sex. Performed By: #### M NATHANIEL BLOOM, HFP ####U [facility] (DEFAULT)[address] [place] [address] Glucose [Mass/Vol] 112 mg/dL High 70-99 [facility] Comment on above: Performed By: #### NATHANIEL RAMÍREZ, HFP ####U [facility] (DEFAULT)[address] [place] [address] Osmolality [Osmolality] 288 mosm/kg Normal 278-305 [facility] Comment on above: Performed By: #### M NATHANIEL BLOOM, HFP ####[facility] (DEFAULT)[address] [place] [address] Potassium [Moles/Vol] 4.1 mmol/L Normal 3.5-5.0 [facility] Comment on above: Performed By: #### M MERLE CHM7, HFP ####[facility] (DEFAULT)[address] [place] [address] Sodium [Moles/Vol] 136 mmol/L Normal 135-145 [facility] Comment on above: Performed By: #### M HELEN BLOOMM7, HFP ####[facility] (DEFAULT)[address] [place] [address] Urea nitrogen [Mass/Vol] 17 mg/dL Normal 7-25 [facility] Comment on above: Performed By: #### Rod BLOOM CHM7, HFP ####[facility] (DEFAULT)[address] [place] [address] Urea nitrogen/Creatinine [Mass ratio] 14 mg/mg Normal [facility] Comment on above: Performed By: #### Rod BLOOM CHM7, HFP ####[facility] (DEFAULT)[address] [place] [address] CYTOLOGY, NON-GYNOrdered By: Sherice Jimenez on 09-03-2023 CYTOLOGIC DIAGNOSIS w4emgBQxEUKudPAoJJHxO8sadnG hOAVxfNDpU2IfczqiHXgySF4oMA 3jySmwyLKzbRJsWIDzWzVuz5uzc 939wVOst2ejAOUMejwlzZy3y1da DSSQtF1ms4q5rN35NOFzlS2oxXF eGJsgpdJeAOjvleYwezMbQhj6QE D7tOrrRqtgcTF7rPAooUC6WGghc 6KfrRqftJfoSSH7QEUdLdhwTYbz zIW0uMMqeGtotMQbJZ1jl0mnzSE 8vjKmUMO2hSrntLS2mLilreecp4 lpjTR4uUH5BNnevUT6OCqnTnTkX 5zyTPHjrD9xM85tV5akZULiySsl GTrtNHDqxYR5NCT0GPLip3ddWQR rcKWhzRBnGjPeSEidGrs8z8sgAB BxoO97kUFpdxB6ySpaSKxdnNG5F H77YUprv4AuAKGplDojTPLfvX1i YzIzXGxldmVsbmZjbjIzXGxldmV cwrLiSZiuuyJln7XfefVthMO4UU upzyGqbWQ8qApnVCHcK2Y0N690K LsxtbUluiEoMmTfdxo2LGOoyGle bGlzdGxldmVsXGxldmVsbmZjMjN oiNO4CBvpUdCrIgIofVR4WSdhPr SwlZT4FEkfmHWojSS9CGpmzRU0G Wa4YTm9PXgwALmjVpi0aGjuyXI3 DWvupH3bXGRjM46ePkM9r8csoII 1vYH7CBbdmCA7BUnjSmWoA7pcYO ZriU0uX90tJ3ydFISpuWuuRJkyV NZdkBK8SEJ6WMSfq2glJYNowDGd mDIqJfMhZVlcKyy8n9omWFXymR3 6pAMvrmY7vBdfZI57DJxwz2HrEH MtrWzaAFZmeU2zSoGiVBppidQmp mZjbjIzXGxldmVsamMwXGxldmVs z5LaqwLpwSV8HXwakzRuvBU9zOt cVRAnN6P0N568MRbzraAwqqKrCp Fjarr7NECtuWsomPadkFqkhiKpI YovppKdfcRmDyEzyIL8OVvlIvDl EqOmbUH5QYbePkOmlWZ0DRrfoON xmWG5FNwquHB6XQv5XCq7NHjpEH neGbs6fWtmsOP6UJfmtM2qLJAuQ 44jUbI9z3zweFF3fLW0VCnwmWV8 PYunAnOfP2hkYTNxaX5vG51kD4n xHQKrsRyrKJptWNSriHT0QKP9DK Qap2wqPUTktWEwgDEjFuDrBXhbI cr6n3iaCSQkbU35nECvsiX0nMrz FG61NYnue5ElNOEfdNgcVXEdjI7 mYzIzXGxldmVsbmZjbjIzXGxldm PjsmVoCQbsjrMre9BdyjWvqEO6F KtvmnAjvSX7tBfuNEIvX1X1H216 LGzcgnCnnkKwObCagpq7AJDogYe cbGlzdGxldmVsXGxldmVsbmZjMj WoaVD2OTdkMqLyMtHunXO0RGyvT nWphXK3XOreyNQeyCI0KOypxJZ6 SId5SDz5JRnbYClrFbd2uOvnvEA 9XBjktU5yFDHaH18jEjI0tD22CV vmjZrbnL68GWIwhYFtqDRmxFZ6K GymrCnnsY66MHSwmSOoIMsar7Vy RJWxBdQ0FPE8ZPFwtSzzsT26UZO qlMWnJ363tfOlVCjsDS92GXGpyU VkoeHzFnZlIMAeqYDhdVK7YZHcR G5bssljSDnmZGepLRGggjM1HIQq zNZzJ3SqKNVtYJ0rsdppVPF6TJi jZDSrYPR0WkFrKBVvn4Pqxnl4Fa DlwOh0y9euQSOkFNWgrOyeu8xuW CW2CHQneWZlF3dawU4cZSZxYH3r hrobn3sgMGpgLJieYCYpzRO2ukL 3ZMHxxJUxM3YskW0vLDAaETYzds RhbCfmjO7wBydkelDfOKCqELWLI aQNNd9AH8qRYOiFFB5HREFtOCNS WQuQKSRPCJGMRYfWF0LQUNwHJfB cSVFoHTPxX0nUF3qPC5hrKgpbZi TiHYmcQGGcOqPcP7ZxMMKegalrL CWqYRHUJJ3CQWAXWSVCUs4HTQZ0 VQIuhhbpqYN7XRbfmbHniSm9nTQ igIjrnM1tRcpowxKpOOLwMPRUdf FJXUgjJ11kbiKkA6KueQGuKDAaS IsqZZ75hYEiUITujFJzCQc2fV7i DXnhuCxsbjPIlNBllM2majnbDId jZjBccGFyXGxpMFxsczBccGFyfQ == [facility] Work Phone: Case Report [facility] Work Phone: Clinical History f6pzsMUjUQHcbNFkCPZn A0qangL eHSQnwOYiG9WxoatbJTehIS5rKX 8owFsikBPsyQRcYARlChXkl8azl 003mPUzy6aiXHDXeixleKf2oEsn B45tj8D3MuetO3pqBEIoGVcjMZS lTUemsRBuJHx4GCKwbOAwjiEwKa UcJSJigUFbnKD1NGBdFD5rixhoU HttUKxpYCTtiwH7XRGtrKKpI6Ao VHSeFC3ffcfxATH3LMbaSZAsRHX 3JvUfGLGek6Vnffa3SuTygHs0h0 blNPBpDNDesZnue5nzARY3BHSbb JQrA7bthR1fDEFvDC5kqchyn7go OMrrJGssELBrlFU0bbA9LDAozDA aN5RutN3pBPCmAJEfjzUhqGfraK 5cZnMyMFxjZjEgUmVuYWwgdHJhb cExvBBflG3cKYZdbn7= [facility] Work Phone: For Immediate Release to Patient's MyChart? Yes Yes [facility] Work Phone: Gross Description e9vjxKFaDZPucWXcVEXo Z5nhwsR zLMGneLInD8CludocWKzfHV2uOL 0wbPhbyOAxhIMyOQXkTzEpz4nuj 233cHXgt5tbQUEVaerqpNx9tKdy J29dj6W1EryuC49mxQGjUSJ5XFU hYATkjCJzKKXvVHJ9GOHcgDViO0 klXBHiYP1rnbadGSqpBWbuZWDpc RJ2DXOnsKHwK7WsPRXvHRivBNLb lzk2FgQjRe7vqLNtyFehNSagYCJ kXHBsYWluXGZzMjAgTExMIEJBTF stNVKsEEDuvBMmWWh1QLUqaZ4fb CPhtxDrdUHupQ3yfKyyBEugQFCk IYQTZKGqpDtnWTTLDSWug3LeuX7 ccGFyXHBhcmRccGFyXHBhcn0= [facility] Work Phone: [facility] Work Phone: HEPATIC FUNCTION PANELon Albumin [Mass/Vol] 3.2 g/dL Low 3.5 - 5.0 g/dL [facility] ALP [Catalytic activity/Vol] 118 U/L 32 - 126 U/L [facility] ALT [Catalytic activity/Vol] 25 U/L 10 - 52 U/L [facility] AST [Catalytic activity/Vol] 32 U/L 10 - 39 U/L [facility] Bilirubin [Mass/Vol] 1.0 mg/dL [place] [address].5 mg/dL [facility] Bilirubin.direct [Mass/Vol] 0.3 mg/dL High NINF - 0.3 mg/dL [facility] Protein [Mass/Vol] 6.5 g/dL 6.4 - 8.3 g/dL [facility] Albumin [Mass/Vol] 3.2 g/dL Low 3.5-5.0 [facility] Comment on above: Performed By: #### M MERLE CHM7, HFP ####[facility] (DEFAULT)[address] [place] [address] ALP [Catalytic activity/Vol] 118 U/L Normal 32-126 [facility] Comment on above: Performed By: #### M MERLE CHM7, HFP ####[facility] (DEFAULT)[address] [place] [address] ALT [Catalytic activity/Vol] 25 U/L Normal 10-52 [facility] Comment on above: Performed By: #### M MERLE CHM7, HFP ####[facility] (DEFAULT)[address] [place] [address] AST [Catalytic activity/Vol] 32 U/L Normal 10-39 [facility] Comment on above: Performed By: #### M GO CHM7, HFP ####[facility] (DEFAULT)[address] [place] [address] Bilirubin [Mass/Vol] 1.0 mg/dL Normal <1.5 [facility] Comment on above: Performed By: #### M GO CHM7, HFP ####[facility] (DEFAULT)[address] [place] [address] Bilirubin.indirect [Mass/Vol] 0.3 mg/dL High <0.3 [facility] Comment on above: Performed By: #### M GO CHM7, HFP ####[facility] (DEFAULT)[address] [place] [address] Protein [Mass/Vol] 6.5 g/dL Normal 6.4-8.3 [facility] Comment on above: Performed By: #### M , CHM7, [facility] ####[facility] (DEFAULT)[address] [place] [address] HISTOPLASMA AND BLASTOMYCES ANTIGEN, ENZYME IMMUNOASSAY, SERMon 09-03-2023 Histoplasma/Blastomy antonia Ag Result Detected Critically abnormal Not Detected [facility] Histoplasma/Blastomy [place] Ag Value 5.3 ng/mL [facility] Interpretation and review of laboratory results Abnormal [facility] IMMUNOPHENOTYPING, TISSUE/FL UIDon 09-03-2023 BKR DX CODE Use Ordering Normal [facility] Comment on above: Order Comment: Pleas e lab add on to specimen collected yesterdayIMMUNOPHENOTYPING DIAGNOSISPATIENT NAME: GEORGE SLATER: 1970MRN: [id number]#: [id number] BY: Yossi Perla M.D,, Ph.D. [id number] TYPE: Bronchial Alveolar LavageLABORATORY INTERPRETATION:There is no [...] performance characteristicsdetermined The Flow Cytometry Laboratory at [facility]. It has notbeen cleared or approved by the FDA. This laboratory is certifiedunder the Clinical Laboratory Improvement Amendments (CLIA)as qualified to perform high complexity clinical laboratorytesting. This test is used for clinical purposes. It should notbe regarded as investigational or for research.The [facility] Flow Cytometry Laboratory lower limitof CLL MRD detection is 0.1% of the gated lymphocytes. Performed By: #### G IPP ####[facility] (DEFAULT)[address] [place] [address] Flow Interpretation See Comment Normal [facility] Comment on above: Order Comment: Dilan gregory lab add on to specimen collected yesterdayIMMUNOPHENOTYPING DIAGNOSISPATIENT NAME: GEORGE SLATER: 1970MRN: [id number]#: [id number] BY: Yossi Perla M.D,, Ph.D. [id number] TYPE: Bronchial Alveolar LavageLABORATORY INTERPRETATION:There is no [...] performance characteristicsdetermined The [facility] Cytometry [facility] at [facility]. It has notbeen cleared or approved by the FDA. This laboratory is certifiedunder the Clinical Laboratory Improvement Amendments (CLIA)as qualified to perform high complexity clinical laboratorytesting. This test is used for clinical purposes. It should notbe regarded as investigational or for research.[facility] Flow Cytometry Laboratory lower limitof CLL MRD detection is 0.1% of the gated lymphocytes. Performed By: #### G IPP ####[facility] ([place] [address] Flow Interpreted by: Yossi Perla MD, PhD Normal [facility] Comment on above: Order Comment: Dilan gregory lab add on to specimen collected yesterdayIMMUNOPHENOTYPING DIAGNOSISPATIENT NAME: GEORGE SLATER: 1970MRN: [id number]#: [id number] BY: Yossi Perla M.D,, Ph.D. [id number] TYPE: Bronchial Alveolar LavageLABORATORY INTERPRETATION:There is no [...] performance characteristicsdetermined The Flow Cytometry Laboratory at [facility]. It has notbeen cleared or approved by the FDA. This laboratory is certifiedunder the Clinical Laboratory Improvement Amendments (CLIA)as qualified to perform high complexity clinical laboratorytesting. This test is used for clinical purposes. It should notbe regarded as investigational or for research.The [facility] Flow Cytometry Laboratory lower limitof CLL MRD detection is 0.1% of the gated lymphocytes. Performed By: #### G IPP ####[facility] (DEFAULT)[address] [place] [address] MAGNESIUMon 09-03-2023 Interpretation and review of laboratory results Normal [facility] Magnesium [Mass/Vol] 1.6 mg/dL 1.6 - 2 .6 mg/dL [facility] Magnesium [Mass/Vol] 1.6 mg/dL Normal 1.6-2.6 [facility] Comment on above: Performed By: #### M GO, CHM7, [facility] ####[place] [facility] (DEFAULT[facility] [place] [address] No Panel Informationon 09-03 Interpretation and review of laboratory results Abnormal [facility] PARVOVIRUS (B19) DNA, PCR, B LOODon 09-03-2023 PARVOVIRUS B19 BY RAPID PCR Not detected Not Detected [facility] [place] SPEC SOURCE Whole Blood [facility] Portable XR Chest Viewson RADIOLOGY RADIOLOGY [facility] Radiology Study observation (narrative) [facility] Portable XR Chest ViewsOrder ed By: [place] on 09-03-2023 [facility] Work Phone: XR CHEST PORTABLEon 09-03-20 23 XR CHEST PORTABLE Normal [facility] ACID FAST CULTUREon 09-02-20 23 Bacteria identified Cx Nom (Unsp spec) NO GROWTH DAY 42 OF 42 Normal [facility] Comment on above: Performed By: #### A FB ####[facility] (DEFAULT)[address] [place] [address] Fluorochrome Stain No acid Fast Bacillus Seen Normal [facility] Comment on above: Performed By: #### A FB ####[facility] (DEFAULT)[address] [place] [address] Bacteria identified Cx Nom (Unsp spec) NO GROWTH DAY 42 OF 42 Normal [facility] Comment on above: Order Comment: BAL A FB culture. Clinical suspicion for non-tuberculous mycobacteria Performed By: #### A FB ####[facility] (DEFAULT)[address] [place] [address] Fluorochrome Stain No acid Fast Bacillus Seen Normal [facility] Comment on above: Order Comment: BAL A FB culture. Clinical suspicion for non-tuberculous mycobacteria Performed By: #### A FB ####[facility] (DEFAULT)[address] [place] [address] ASPERGILLUS (GALACTOMANNAN), ANTIGENon 09-02-2023 Galactomannan Ag IA Qn <0.500 NINF [facility] ASPERGILLUS ANTIGEN, BALon 1 Aspergillus Galactomannan Antigen, BAL <0.500 Normal <0.5 [facility] Comment on above: Result Comment: ---- ADDITIONAL INFORMATION This is a qualitative test and the resulted index value isnot indicative of disease severity. Serial testing isrecommended for patients at high risk for invasiveaspergillosis.This assay was performed using the FDA-cleared [employer]at[employer] Aspergillus Galactomannan EIA.Test Performed by:[address] Director: Rosendo Bose M.D. Ph.D.; CLIA# [id number] Performed By: #### X ASGFL ####[facility] (DEFAULT)[address] [address] Aspergillus Galactomannan Antigen, BAL <0.500 Normal <0.5 [facility] Comment on above: Order Comment: BAL a spirgillus antigen Result Comment: ---- ADDITIONAL INFORMATION This is a qualitative test and the resulted index value isnot indicative of disease severity. Serial testing isrecommended for patients at high risk for invasiveaspergillosis.This assay was performed using the FDA-cleared Bio-RadPlatelia Aspergillus Galactomannan EIA.Test Performed by:[address] Director: Rosendo Bose M.D. Ph.D.; CLIA# [id number] Performed By: #### X ASGFL ####[facility] (DEFAULT)[address] [place] [address] ATYPICAL BACTERIAL PNEUMONIA ,PCROrdered By: Shari Contreras on 09-02-2023 B. parapertussis DNA ESTELITA+probe Ql (Unsp spec) Not detected Not Detected [facility] B. pertussis DNA ESTELITA+probe Ql (Unsp spec) Not detected Not Detected [facility] C. pneumoniae DNA ESTELITA+probe Ql (Unsp spec) Not detected Not Detected [facility] Interpretation and review of laboratory results Normal [facility] M. pneumoniae DNA ESTELITA+probe Ql (Unsp spec) Not detected Not Detected [facility] ATYPICAL BACTERIAL PNEUMONIA ,PCRon 09-02-2023 Bordetella Parapertussis Not detected Normal Not Detected [facility] Comment on above: Order Comment: Viral transport [...] by [facility]. It has not been cleared or approved by the FDA. The laboratory is required under CLIA as qualified to perform high-complexity testing. This test is used for clinical purposes. It should not be regarded as investigational or for research. Performed By: #### A TYPNE ####[facility] (DEFAULT)[address] [place] [address] Bordetella Pertussis Not detected Normal Not Detected [facility] Comment on above: Order Comment: Viral transport [...] by [facility]. It has not been cleared or approved by the FDA. The laboratory is required under CLIA as qualified to perform high-complexity testing. This test is used for clinical purposes. It should not be regarded as investigational or for research. Performed By: #### A TYPNE ####[facility] (DEFAULT)[address] [address] Chlamydia Pneumoniae Not detected Normal Not Detected [facility] Comment on above: Order Comment: Viral transport [...] by [facility]. It has not been cleared or approved by the FDA. The laboratory is required under CLIA as qualified to perform high-complexity testing. This test is used for clinical purposes. It should not be regarded as investigational or for research. Performed By: #### A TYPNE ####[facility] (DEFAULT)[address] [address] Mycoplasma Pneumoniae Not detected Normal Not Detected [facility] Comment on above: Order Comment: Viral transport [...] by [facility]. It has not been cleared or approved by the FDA. The laboratory is required under CLIA as qualified to perform high-complexity testing. This test is used for clinical purposes. It should not be regarded as investigational or for research. Performed By: #### A TYPNE ####[facility] (DEFAULT)[address] [address] BAL CONSULTon 09-02-2023 ALVEOLAR MACROPHAGES 33 % Normal [facility] Comment on above: Order Comment: BAL c onsultIf > 15% lymphocytes - please send for flow. Performed By: #### B ALC ####[facility] (DEFAULT)[address] [place] [address] Bal comments Correlation with microbiology stains and cultures is recommended. Correlation with viral studies is recommended. Normal [facility] Comment on above: Order Comment: BAL c onsultIf > 15% lymphocytes - please send for flow. Performed By: #### B ALC ####[facility] (DEFAULT)[address] [place] [address] Bal Diff Quik Stain Quality Check Acceptable Normal [facility] Comment on above: Order Comment: BAL c onsultIf > 15% lymphocytes - please send for flow. Performed By: #### B ALC ####[facility] (DEFAULT)[address] [place] [address], [place] [address] Bal Reviewed By: Leonardo Peralta MD [facility] Comment on above: Order Comment: BAL c onsultIf > 15% lymphocytes - please send for flow. Performed By: #### B ALC ####[facility] (DEFAULT)[address] [place] [address] BKR BAL INTERPRETATION Cellular specimen comprised of alveolar macrophages and small lymphocytes. No definitive microorganisms are observed. Rare degenerating cells with changes suggestive of viral cytopathic effect are noted. Moderate degenerative changes. Normal [facility] Comment on above: Order Comment: BAL c onsultIf > 15% lymphocytes - please send for flow. Performed By: #### B ALC ####[facility] (DEFAULT)[address] [place] [address], [place] [address] BKR DX CODE Use Ordering Normal [facility] Comment on above: Order Comment: BAL c onsultIf > 15% lymphocytes - please send for flow. Performed By: #### B ALC ####[facility] (DEFAULT)[address] [place] [address] Eosinophils/100 WBC (Bld) 0 % Normal [facility] Comment on above: Order Comment: BAL c onsultIf > 15% lymphocytes - please send for flow. Performed By: #### B ALC ####[facility] (DEFAULT)[address] [place] [address] Lymphocytes/100 WBC (Bld) 49 % Normal [facility] Comment on above: Order Comment: BAL c onsultIf > 15% lymphocytes - please send for flow. Performed By: #### B ALC ####[facility] (DEFAULT)[address] [place] [address] Neutrophils/100 WBC (Bld) 18 % Normal [facility] Comment on above: Order Comment: BAL c onsultIf > 15% lymphocytes - please send for flow. Performed By: #### B ALC ####[facility] (DEFAULT)[address] [place] [address] ALVEOLAR MACROPHAGES 32 % Normal [facility] Comment on above: Order Comment: BAL c onsult for cell differential and pathologist review. Please do flow cytometry if > 12% lymphocytes Performed By: #### B ALC ####[facility] (DEFAULT)[address] [place] [address] Bal comments Correlation with microbiology stains and cultures is recommended. Normal [facility] Comment on above: Order Comment: BAL c onsult for cell differential and pathologist review. Please do flow cytometry if > 12% lymphocytes Performed By: #### B ALC ####[facility] (DEFAULT)[address] [place] [address] Bal Diff Quik Stain Quality Check Acceptable Normal [facility] Comment on above: Order Comment: BAL c onsult for cell differential and pathologist review. Please do flow cytometry if > 12% lymphocytes Performed By: #### B ALC ####[facility] (DEFAULT)[address] [place] [address] Bal Reviewed By: Leonardo Peralta MD [facility] Comment on above: Order Comment: BAL c onsult for cell differential and pathologist review. Please do flow cytometry if > 12% lymphocytes Performed By: #### B ALC ####[facility] (DEFAULT)[address] [place] [address] BKR BAL INTERPRETATION Cellular specimen comprised of alveolar macrophages and small lymphocytes. No definitive microorganisms are observed. Moderate degenerative changes. Normal [facility] Comment on above: Order Comment: BAL c onsult for cell differential and pathologist review. Please do flow cytometry if > 12% lymphocytes Performed By: #### B ALC ####[facility] (DEFAULT)[address] [place] [address] BKR DX CODE Use Ordering Normal [facility] Comment on above: Order Comment: BAL c onsult for cell differential and pathologist review. Please do flow cytometry if > 12% lymphocytes Performed By: #### B ALC ####[facility] (DEFAULT)[address] [place] [address] Eosinophils/100 WBC (Bld) 0 % Normal [facility] Comment on above: Order Comment: BAL c onsult for cell differential and pathologist review. Please do flow cytometry if > 12% lymphocytes Performed By: #### B ALC ####[facility] (DEFAULT)[address] [place] [address] Lymphocytes/100 WBC (Bld) 57 % Normal [facility] Comment on above: Order Comment: BAL c onsult for cell differential and pathologist review. Please do flow cytometry if > 12% lymphocytes Performed By: #### B ALC ####[facility] (DEFAULT)[address] [place] [address] Neutrophils/100 WBC (Bld) 11 % Normal [facility] Comment on above: Order Comment: BAL c onsult for cell differential and pathologist review. Please do flow cytometry if > 12% lymphocytes Performed By: #### B ALC ####[facility] (DEFAULT)[address] [place] [address] BRONCHOSCOPYon 09-02-2023 Radiology Study observation (narrative) [facility] Bacteria identified Cx Nom ( Bld)on 09-02-2023 Bacteria identified Cx Nom (Unsp spec) NO GROWTH DAY 5 OF 5 [facility] CBC,PLATELETSon 09-02-2023 Erythrocyte distribution width (RBC) [Ratio] 13.2 % 10.9 - 14.3 % [facility] Hematocrit (Bld) [Volume fraction] 39.9 % 39.6 - 48.8 % [facility] Hemoglobin (Bld) [Mass/Vol] 12.9 g/dL Low 13.4 - 16.8 g/dL [facility] Interpretation and review of laboratory results Abnormal [facility] MCH (RBC) [Entitic mass] 27.9 pg 26.1 - 33.3 pg [facility] MCHC (RBC) [Mass/Vol] 32.3 g/dL 31.9 - 36.5 g/dL [facility] MCV (RBC) [Entitic vol] 86.4 fL 79.0 - 94.5 fL [facility] Platelet mean volume (Bld) [Entitic vol] 9.5 fL 8.7 - 12.3 fL [facility] Platelets (Bld) [#/Vol] 210 10*3/uL 146 - 337 K/uL [facility] RBC (Bld) [#/Vol] 4.62 10*6/uL [facility] WBC (Bld) [#/Vol] 4.12 10*3/uL 3.73 - 10. 10 K/uL [facility] Hematocrit (Bld) [Volume fraction] 39.9 % Normal 39.6-48.8 [facility] Comment on above: Performed By: #### [facility] ####[facility] (DEFAULT)[address] [place] [address] Hemoglobin (Bld) [Mass/Vol] 12.9 g/dL Low 13.4-16.8 [facility] Comment on above: Performed By: #### [facility] ####[facility] (DEFAULT)[address] [place] [address] MCV (RBC) [Entitic vol] 86.4 fL Normal 79.0-94.5 [facility] Comment on above: Performed By: #### H EMOGC ####[facility] (DEFAULT)[address] [place] [address] Mean Cell Hgb 27.9 pg Normal 26.1-33.3 [facility] Comment on above: Performed By: #### H EMOGC ####[facility] (DEFAULT)[address] [place] [address] Mean Cell Hgb Conc 32.3 g/dL Normal 31.9-36.5 [facility] Comment on above: Performed By: #### H EMOGC ####[facility] (DEFAULT)[address] [place] [address] Platelet mean volume (Bld) [Entitic vol] 9.5 fL Normal 8.7-12.3 [facility] Comment on above: Performed By: #### H EMOGC ####[facility] (DEFAULT)[address] [place] [address] Platelets (Bld) [#/Vol] 210 10*3/uL Normal 146-337 [facility] Comment on above: Performed By: #### H EMOGC ####[facility] (DEFAULT)[address] [place] [address] RBC (Bld) [#/Vol] 4.62 10*6/uL Normal 4.38-5.83 [facility] Comment on above: Performed By: #### H EMOGC ####[facility] (DEFAULT)[address] [place] [address] RBC Distribution 13.2 % Normal 10.9-14.3 [facility] Comment on above: Performed By: #### H EMOGC ####[facility] (DEFAULT)[address] [place] [address] WBC (Bld) [#/Vol] 4.12 10*3/uL Normal 3.73-10.10 [facility] Comment on above: Performed By: #### H EMOGC ####[facility] (DEFAULT)[address] [place] [address] CHEM 7 (LYTES,BUN,CREA,GLUC) on 09-02-2023 Anion gap [Moles/Vol] 13 mmol/L 7 - 17 mmol/L [facility] Chloride [Moles/Vol] 105 mmol/L 98 - 10 8 mmol/L [facility] CO2 [Moles/Vol] 22 mmol/L 21 - 31 mmol/L [facility] Creatinine [Mass/Vol] 1.25 mg/dL 0.70 - 1.30 mg/dL [facility] eGFR, CKD-EPI, Male 69 - [facility]F [facility] Glucose [Mass/Vol] 105 mg/dL High 70 - 99 mg/dL [facility] Osmolality Calc [Osmolality] 287 [facility] Potassium [Moles/Vol] 4.3 mmol/L 3.5 - 5.0 mmol/L [facility] Sodium [Moles/Vol] 136 mmol/L 135 - 145 mmol/L [facility] Urea nitrogen [Mass/Vol] 16 mg/dL 7 - 25 mg/dL [facility] Urea nitrogen/Creatinine [Mass ratio] 13 mg/mg [facility] Anion gap [Moles/Vol] 13 mmol/L Normal 7-17 [facility] Comment on above: Performed By: #### C HM7, HFP, MGO ####[facility] (DEFAULT)[address] [place] [address] Chloride [Moles/Vol] 105 mmol/L Normal 98-108 [facility] Comment on above: Performed By: #### C HM7, HFP, MGO ####[facility] (DEFAULT)[address] [place] [address] CO2 [Moles/Vol] 22 mmol/L Normal 21-31 [facility] Comment on above: Performed By: #### C HM7, HFP, MGO ####[facility] (DEFAULT)[address] [place] [address] Creatinine [Mass/Vol] 1.25 mg/dL Normal 0.70-1.30 [facility] Comment on above: Performed By: #### C HM7, HFP, MGO ####[facility] (DEFAULT)[address] [place] [address] GFR/1.73 sq M.predicted among non-blacks MDRD (S/P/Bld) [Vol rate/Area] 69 mL/min/{1.73_m2} Normal >=60 [facility] Comment on above: Result Comment: Repo rted eGFR is based on the CKD-EPI 2020 equation using creatinine, age, and sex. Performed By: #### C HM7, HFP, MGO ####[facility] (DEFAULT)[address] [place] [address] Glucose [Mass/Vol] 105 mg/dL High 70-99 [facility] Comment on above: Performed By: #### C HM7, HFP, MGO ####[facility] (DEFAULT)[address] [place] [address] Osmolality [Osmolality] 287 mosm/kg Normal 278-305 [facility] Comment on above: Performed By: #### C HM7, HFP, MGO ####[facility] (DEFAULT)[address] [place] [address] Potassium [Moles/Vol] 4.3 mmol/L Normal 3.5-5.0 [facility] Comment on above: Performed By: #### C HM7, HFP, MGO ####[facility] (DEFAULT)[address] [place] [address] Sodium [Moles/Vol] 136 mmol/L Normal 135-145 [facility] Comment on above: Performed By: #### C HM7, HFP, MGO ####U [facility] (DEFAULT)[address] [place] [address] Urea nitrogen [Mass/Vol] 16 mg/dL Normal 7-25 [facility] Comment on above: Performed By: #### C HM7, HFP, MGO ####U [facility] (DEFAULT)[address] [place] [address] Urea nitrogen/Creatinine [Mass ratio] 13 mg/mg Normal [facility] Comment on above: Performed By: #### C HM7, HFP, MGO ####[facility] (DEFAULT)[address] [place] [address] CMV PCR,FLUIDS,URINE,EYE ETC on 09-02-2023 CMV by PCR Result Negative Normal Negative [facility] Comment on above: Result Comment: ---- ADDITIONAL INFORMATION This test was developed and its performance characteristicsdetermined by [facility] in a manner consistent with [employer]. This test has not been cleared or approved [facility] [place].S. Food and Drug Administration.Test Performed by:[address] Director: Rosendo Bose M.D. Ph.D.; CLIA# [id number] Performed By: #### Y CMV ####[facility] (DEFAULT)[address] [place] [address], [place] [address] CMV BY PCR SOURCE BAL RML Normal [facility] Comment on above: Performed By: #### Y CMV ####[facility] (DEFAULT)[address] [place] [address], [place] [address] CMV by PCR Result Negative Normal Negative [facility] Comment on above: Result Comment: ---- ADDITIONAL INFORMATION This test was developed and its performance characteristicsdetermined by [facility] in a manner consistent with CLIArequirements. This test has not been cleared or approved bythe U.S. Food and Drug Administration.Test Performed by:[address] [address] Director: Rosendo Bose M.D. Ph.D.; CLIA# [id number] Performed By: #### Y CMV ####[facility] (DEFAULT)[address] [place] [address] CMV BY PCR SOURCE BAL LLL Normal [facility] Comment on above: Performed By: #### Y CMV ####U [facility] (DEFAULT)[address] [place] [address] CYTOLOGY, NON-GYNon 09-02-20 23 CYTOLOGIC DIAGNOSIS Normal [facility] Comment on above: Result Comment: A. B RONCHOALVEOLAR LAVAGE, LEFT LOWER LOBE (CYTOLOGY):FINAL DIAGNOSIS:No Malignant Cells Are IdentifiedHypocellular Specimen Performed By: #### N ONJONH ####[facility] (DEFAULT)[address] [place] [address] Case Report Normal [facility] Comment on above: Result Comment: Medi abhishek Cytology Report Case: [id number] Provider: Crow Diaz MD Collected: 09/02/2023 08:38 AMOrdering Location: [facility] Received: 09/02/2023 10:44 AMPathologist: KENTON Caglepecimen: BRONCHOALVEOLAR LAVAGE, LLL BAL Performed By: #### N ONJOHNNA ####[facility] (DEFAULT)[address] [place] [address] Clinical History Renal transplant. Normal [facility] Comment on above: Performed By: #### N ONNILOFNA ####U [facility] (DEFAULT)[address] [place] [address] Gross Description Normal [facility] Comment on above: Result Comment: LLL BAL1 ml hazy colorless fld unfixed1 TP slide Pap stainFor Immediate Release to Patient's MyChart? Yes Performed By: #### N ONGNNONFNA ####[facility] (DEFAULT)[address] [place] [address] FUNGUS CULTUREon 09-02-2023 Bacteria identified Cx Nom (Unsp spec) Normal [facility] Comment on above: Order Comment: Ident ification was performed on the MALDI-TOF mass spectrometer adflyeryper. This test was developed by [facility]. It has not been cleared or approved by the FDA. The laboratory is regulated under CLIA as qualified to perform high-complexity testing. This test is used for clinical purposes. It should not be regarded as investigational or for research. Result Comment: Grow [id number] [place] Histoplasma capsulatum Performed By: #### F UN ####[facility] (DEFAULT)[address] [place] [address] Bacteria identified Cx Nom (Unsp spec) NO GROWTH DAY 28 OF 28 Normal [facility] Comment on above: Order Comment: BAL f ungal culture Performed By: #### F UN ####[facility] (DEFAULT)[address] [place] [address] HEPATIC FUNCTION PANELon Albumin [Mass/Vol] 3.2 g/dL Low 3.5 - 5.0 g/dL [facility] ALP [Catalytic activity/Vol] 107 U/L 32 - 126 U/L [facility] ALT [Catalytic activity/Vol] 20 U/L 10 - 52 U/L [facility] AST [Catalytic activity/Vol] 31 U/L 10 - 39 U/L [facility] Bilirubin [Mass/Vol] 1.0 mg/dL NINF - 1.5 mg/dL [facility] Bilirubin.direct [Mass/Vol] 0.3 mg/dL High NINF - 0.3 mg/dL [facility] Protein [Mass/Vol] 6.6 g/dL 6.4 - 8.3 g/dL [facility] Albumin [Mass/Vol] 3.2 g/dL Low 3.5-5.0 [facility] Comment on above: Performed By: #### C HM7, HFP, MGO ####[facility] (DEFAULT)[address] [place] [address] ALP [Catalytic activity/Vol] 107 U/L Normal 32-126 [facility] Comment on above: Performed By: #### C HM7, HFP, MGO ####[facility] (DEFAULT)[address] [place] [address] ALT [Catalytic activity/Vol] 20 U/L Normal 10-52 [facility] Comment on above: Performed By: #### C HM7, HFP, MGO ####[facility] (DEFAULT)[address] [place] [address] AST [Catalytic activity/Vol] 31 U/L Normal 10-39 [facility] Comment on above: Performed By: #### C HM7, HFP, MGO ####[facility] (DEFAULT)[address] [place] [address] Bilirubin [Mass/Vol] 1.0 mg/dL Normal <1.5 [facility] Comment on above: Performed By: #### C HM7, HFP, MGO ####[facility] (DEFAULT)[address] [address] [place] [address] Bilirubin.indirect [Mass/Vol] 0.3 mg/dL High <0.3 [facility] Comment on above: Performed By: #### C HM7, HFP, MGO ####[facility] (DEFAULT)[address] [place] [address] Protein [Mass/Vol] 6.6 g/dL Normal 6.4-8.3 [facility] Comment on above: Performed By: #### C HM7, HFP, MGO ####[facility] (DEFAULT)[address] [place] [address] HISTOPLASMA ANTIGEN, FLUIDon 09-02-2023 FH SOURCE BAL RML Normal [facility] Comment on above: Performed By: #### Y FHST ####[facility] (DEFAULT)[address] [place] [address] Histo FLD interpretation Negative Normal [facility] Comment on above: Result Comment: ---- ADDITIONAL INFORMATION Reference interval: None DetectedReportable Range: Positive Results reported in ng/mL from0.20 ng/mL to 20.00 ng/mLPositive Results above 20.00 ng/mL are reported as 'Abovethe Limit of Quantification'Cross-reactions occur with Blastomyces spp., Coccidioidesspp., and Paracoccidioides brasiliensis.This test was developed and its performance characteristicsdetermined by [employer]. It has not beencleared or approved by the FDA; however, FDA clearance orapproval is not currently required for clinical use. Theresults are not intended to be used as the sole means forclinical diagnosis or patient management decisions.Test Performed by:[employer] [place] [address] [place] [address] Performed By: #### Y FHST ####[facility] (DEFAULT)[address] [place] [address], [place] [address] Histoplasma Antigen, FLUID Not detected Normal [facility] Comment on above: Performed By: #### Y FHST ####[facility] (DEFAULT)[address] [place] [address], [place] [address] HISTOPLASMA ANTIGEN,URINEon 09-02-2023 H. capsulatum Ag (U) [Mass/Vol] Not detected ng/mL [facility] H. capsulatum Ag IA Ql (U) Not detected Not Detected [facility] HISTOPLASMA CAPSULATUM/BLAST OMYCES SPECIES,PCR FLUIDon 09-02-2023 HISTO/BLASTO RESULT Negative Normal Not Applicable [facility] Comment on above: Result Comment: A Ne gative result from BAL fluid does not rule out thepresence of Histoplasma capsulatum because the sensitivity from this source is suboptimal. ADDITIONAL INFORMATION This test was developed and its performance characteristicsdetermined by [facility] in a manner consistent with CLIArequirements. This test has not been cleared or approved bythe U.S. Food and Drug Administration.Test Performed by:[address] [address]Ebi Director: Rosendo Bose M.D. Ph.D.; CLIA# [id number] Performed By: #### Y HBRP ####[facility] (DEFAULT)[address] [place] [address] Source BAL RML Normal [facility] Comment on above: Performed By: #### Y HBRP ####[facility] (DEFAULT)[address] [place] [address] HIV 1 AND 2 ANTIBODIES/P24 A NTIGENOrdered By: Wilma Luque on 09-02-2023 HIV 1+2 Ab+HIV1 p24 Ag IA Ql Non-Reactive Non Reactive [facility] Interpretation and review of laboratory results Normal [facility] HIV 1 AND 2 ANTIBODIES/P24 A NTIGENon 09-02-2023 HIV-1/HIV-2 Ab With p24 Antigen Non-Reactive Normal Non Reactive [facility] Comment on above: Performed By: #### L [id number] ####[facility] (DEFAULT)[address] [place] [address] LEGIONELLA CULTUREon 023 Bacteria identified Cx Nom (Unsp spec) NO GROWTH DAY 7 OF 7 Normal [facility] Comment on above: Performed By: #### L EGN ####[facility] (DEFAULT)[address] [place] [address] Bacteria identified Cx Nom (Unsp spec) NO GROWTH DAY 7 OF 7 Normal [facility] Comment on above: Order Comment: BAL l egionella culture Performed By: #### L EGN ####[facility] (DEFAULT)[address] [place] [address] LEGIONELLA PCRon 09-02-2023 Legionella species, Culture BAL RML Normal [facility] Comment on above: Performed By: #### Y LEGRP ####[facility] (DEFAULT)[address] [place] [address] Legionella, pcr result Negative Normal Not Applicable [facility] Comment on above: Result Comment: ---- ADDITIONAL INFORMATION This test was developed and its performance characteristicsdetermined by [facility] in a manner consistent with CLIArequirements. This test has not been cleared or approved bythe U.S. Food and Drug Administration.Test Performed by:[address] Director: Rosendo Bose M.D. Ph.D.; CLIA# [id number] Performed By: #### Y LEGRP ####[facility] (DEFAULT)[address] [place] [address] LOWER RESPIRATORY CULTURE, B ACTERIALon 09-02-2023 Bacteria identified Cx Nom (Unsp spec) NO GROWTH DAY 2 OF 2 Normal [facility] Comment on above: Performed By: #### R ES ####[facility] (DEFAULT)[address] [place] [address] Microscopic observation Gram stain Nom (Unsp spec) Normal [facility] Comment on above: Result Comment: Cyto centrifuge preparationNeutrophils, RareRed Blood Cells PresentNo organisms seen Performed By: #### R ES ####[facility] (DEFAULT)[address] [place] [address] Bacteria identified Cx Nom (Unsp spec) NO GROWTH DAY 2 OF 2 Normal [facility] Comment on above: Order Comment: BAL b acterial respiratory culture Performed By: #### R ES ####[facility] (DEFAULT)[address] [place] [address] Microscopic observation Gram stain Nom (Unsp spec) Normal [facility] Comment on above: Order Comment: BAL b acterial respiratory culture Result Comment: Cyto centrifuge preparationNeutrophils, ModerateRed Blood Cells PresentNo organisms seen Performed By: #### R ES ####[facility] (DEFAULT)[address] [place] [address] MAGNESIUMon 09-02-2023 Interpretation and review of laboratory results Normal [facility] Magnesium [Mass/Vol] 1.7 mg/dL 1.6 - 2 .6 mg/dL [facility] Magnesium [Mass/Vol] 1.7 mg/dL Normal 1.6-2.6 [facility] Comment on above: Performed By: #### C HM7, HFP, MGO ####[facility] (DEFAULT)[address] [place] [address] No Panel Informationon 09-02 Interpretation and review of laboratory results Abnormal [facility] PNEUMOCYSTIS JIROVECI,PCRon 09-02-2023 PN Report Status DNR Normal [facility] Comment on above: Performed By: #### Y PNRP ####[facility] (DEFAULT)[address] [place] [address] PN Specimen Source BAL RML Normal [facility] Comment on above: Performed By: #### Y PNRP ####[facility] (DEFAULT)[address] [place] [address] Pneum jiroveci comment DNR Normal [facility] Comment on above: Performed By: #### Y PNRP ####[facility] (DEFAULT)[address] [place] [address] Pneumocystis jiroveci,PCR result Negative Normal Not Applicable [facility] Comment on above: Result Comment: ---- ADDITIONAL INFORMATION This test was developed and its performance characteristicsdetermined by [facility] in a manner consistent with CLIArequirements. This test has not been cleared or approved bythe U.S. Food and Drug Administration.Test Performed by:[place] [id number] Director: Rosendo Bose M.D. Ph.D.; CLIA# [id number] Performed By: #### Y PNRP ####[facility] (DEFAULT)[address] [place] [address] PN Report Status DNR Normal [facility] Comment on above: Performed By: #### Y PNRP ####[facility] (DEFAULT)[address] [place] [address] PN Specimen Source BAL LLL Normal [facility] Comment on above: Performed By: #### Y PNRP ####[facility] (DEFAULT)[address] [place] [address], [place] [address] Pneum jiroveci comment DNR Normal [facility] Comment on above: Performed By: #### Y PNRP ####[facility] (DEFAULT)[address] [place] [address], [place] [address] Pneumocystis jiroveci,PCR result Negative Normal Not Applicable [facility] Comment on above: Result Comment: ---- ADDITIONAL INFORMATION This test was developed and its performance characteristicsdetermined by [facility] in a manner consistent with CLIArequirements. This test has not been cleared or approved bythe U.S. Food and Drug Administration.Test Performed by:[address] [address]Cca Director: Rosendo Bose M.D. Ph.D.; CLIA# [id number] Performed By: #### Y PNRP ####[facility] (DEFAULT)[address] [place] [address] TACROLIMUS LEVEL, TROUGH (IL E DRUG LEVEL)on 09-02-2023 Interpretation and review of laboratory results Normal [facility] Tacrolimus (Bld) [Mass/Vol] 4.2 ng/mL [facility] Tacrolimus, Trough 4.2 ng/mL Normal [facility] ow Transplant: 4.0-12.0, Therapeutic: 5.0-15.0 [facility] Comment on above: Order Comment: Pleas e draw at specified interval PRIOR to dose. Do not hold dose to wait for level. Specimens batched twice per day, (M-F) and once per day weekendsMethod performed is a chemiluminescent microparticle immunoasssay on the [employer]rick[employer] Tender i2000.The range is based on experience at [facility] and users should be aware that target concentrations vary widely depending on concomitant therapy, time post-transplant, and desired degree of immunosuppression. Performed By: #### T ACRO ####[facility] (DEFAULT)[address] [place] [address] CBC,PLATELETSon 09-01-2023 Erythrocyte distribution width (RBC) [Ratio] 13.4 % 10.9 - 14.3 % [facility] Hematocrit (Bld) [Volume fraction] 38.9 % Low 39.6 - 48.8 % [facility] Hemoglobin (Bld) [Mass/Vol] 12.7 g/dL Low 13.4 - 16.8 g/dL [facility] Interpretation and review of laboratory results Abnormal [facility] MCH (RBC) [Entitic mass] 27.6 pg 26.1 - 33.3 pg [facility] MCHC (RBC) [Mass/Vol] 32.6 g/dL 31.9 - 36.5 g/dL [facility] MCV (RBC) [Entitic vol] 84.6 fL 79.0 - 94.5 fL [facility] Platelet mean volume (Bld) [Entitic vol] 9.4 fL 8.7 - 12.3 fL [facility] Platelets (Bld) [#/Vol] 209 10*3/uL 146 - 337 K/uL [facility] RBC (Bld) [#/Vol] 4.60 10*6/uL [facility] WBC (Bld) [#/Vol] 4.41 10*3/uL 3.73 - 10. 10 K/uL [facility] Hematocrit (Bld) [Volume fraction] 38.9 % Low 39.6-48.8 [facility] Comment on above: Performed By: #### H EMO ####[facility] (DEFAULT)[address] [place] [address] Hemoglobin (Bld) [Mass/Vol] 12.7 g/dL Low 13.4-16.8 [facility] Comment on above: Performed By: #### H EMO ####[facility] (DEFAULT)[address] [place] [address] MCV (RBC) [Entitic vol] 84.6 fL Normal 79.0-94.5 [facility] Comment on above: Performed By: #### H EMOGC ####[facility] (DEFAULT)[address] [place] [address] Mean Cell Hgb 27.6 pg Normal 26.1-33.3 [facility] Comment on above: Performed By: #### H EMO ####[facility] (DEFAULT)[address] [place] [address] Mean Cell Hgb Conc 32.6 g/dL Normal 31.9-36.5 [facility] Comment on above: Performed By: #### H EMOGC ####[facility] (DEFAULT)[address] [place] [address] Platelet mean volume (Bld) [Entitic vol] 9.4 fL Normal 8.7-12.3 [facility] Comment on above: Performed By: #### [facility] ####[facility] (DEFAULT)[address] [place] [address] Platelets (Bld) [#/Vol] 209 10*3/uL Normal 146-337 [facility] Comment on above: Performed By: #### H EMO ####[facility] (DEFAULT)[address] [place] [address] RBC (Bld) [#/Vol] 4.60 10*6/uL Normal 4.38-5.83 [facility] Comment on above: Performed By: #### H [facility] ####[facility] (DEFAULT)[address] [place] [address] RBC Distribution 13.4 % Normal 10.9-14.3 [facility] Comment on above: Performed By: #### H [facility] ####[facility] (DEFAULT)[address] [place] [address] WBC (Bld) [#/Vol] 4.41 10*3/uL Normal 3.73-10.10 [facility] Comment on above: Performed By: #### [facility] ####[facility] (DEFAULT)[address] [place] [address] CHEM 7 (LYTES,BUN,CREA,GLUC) on 09-01-2023 Anion gap [Moles/Vol] 14 mmol/L 7 - 17 mmol/L [facility] Chloride [Moles/Vol] 103 mmol/L 98 - 10 8 mmol/L [facility] CO2 [Moles/Vol] 21 mmol/L 21 - 31 mmol/L [facility] Creatinine [Mass/Vol] 1.16 mg/dL 0.70 - 1.30 mg/dL [facility] eGFR, CKD-EPI, Male 76 - PINF [facility] Glucose [Mass/Vol] 117 mg/dL High 70 - 99 mg/dL [facility] Osmolality Calc [Osmolality] 285 [facility] Potassium [Moles/Vol] 4.2 mmol/L 3.5 - 5.0 mmol/L [facility] Sodium [Moles/Vol] 134 mmol/L Low 135 - 145 mmol/L [facility] Urea nitrogen [Mass/Vol] 18 mg/dL 7 - 25 mg/dL [facility] Urea nitrogen/Creatinine [Mass ratio] 16 mg/mg [facility] Anion gap [Moles/Vol] 14 mmol/L Normal 7-17 [facility] Comment on above: Performed By: #### H ANTWAN MGHELEN MercadoM7 ####[facility] (DEFAULT)[address] [place] [address] Chloride [Moles/Vol] 103 mmol/L Normal 98-108 [facility] Comment on above: Performed By: #### H ANTWAN MGNATHANIEL Mercado ####[facility] (DEFAULT)[address] [place] [address] CO2 [Moles/Vol] 21 mmol/L Normal 21-31 [facility] Comment on above: Performed By: #### H DOMENICA MONCADA CHM7 ####[facility] (DEFAULT)[address] [place] [address] Creatinine [Mass/Vol] 1.16 mg/dL Normal 0.70-1.30 [facility] Comment on above: Performed By: #### H ANTWAN MGO CHM7 ####[facility] (DEFAULT)[address] [place] [address] GFR/1.73 sq M.predicted among non-blacks MDRD (S/P/Bld) [Vol rate/Area] 76 mL/min/{1.73_m2} Normal >=60 [facility] Comment on above: Result Comment: Repo rted eGFR is based on the CKD-EPI 2020 equation using creatinine, age, and sex. Performed By: #### H ANTWAN MGOTJ7 ####[facility] (DEFAULT)[address] [place] [address] Glucose [Mass/Vol] 117 mg/dL High 70-99 [facility] Comment on above: Performed By: #### H ANTWAN MGO CHM7 ####[facility] (DEFAULT)[address] [place] [address] Osmolality [Osmolality] 285 mosm/kg Normal 278-305 [facility] Comment on above: Performed By: #### H ANTWAN MGO, CHM7 ####[facility] (DEFAULT)[address] [facility] [place] [address] Potassium [Moles/Vol] 4.2 mmol/L Normal 3.5-5.0 [facility] Comment on above: Performed By: #### H ANTWAN MGO, CHM7 ####[facility] (DEFAULT)[address] [place] [address] Sodium [Moles/Vol] 134 mmol/L Low 135-145 [facility] Comment on above: Performed By: #### H ANTWAN MGO, CHM7 ####[facility] (DEFAULT)[address] [facility] [place] [address] Urea nitrogen [Mass/Vol] 18 mg/dL Normal 7-25 [facility] Comment on above: Performed By: #### Lydia MONCADA MGO, CHM7 ####[facility] (DEFAULT)[address] [place] [address] Urea nitrogen/Creatinine [Mass ratio] 16 mg/mg Normal [facility] Comment on above: Performed By: #### Lydia MONCADA MGO, CHM7 ####[facility] (DEFAULT)[address] [place] [address] CRYPTOCOCCAL ANTIGENon 09-01 Cryptococcus sp Ag Ql (S) Negative Negative [facility] Interpretation and review of laboratory results Normal [facility] Cryptococcus Antigen,Serum Negative Normal Negative [facility] Comment on above: Performed By: #### C RAG ####[facility] (DEFAULT)[address] [place] [address] HEPATIC FUNCTION PANELon Albumin [Mass/Vol] 3.3 g/dL Low 3.5 - 5.0 g/dL [facility] ALP [Catalytic activity/Vol] 112 U/L 32 - 126 U/L [facility] ALT [Catalytic activity/Vol] 21 U/L 10 - 52 U/L [facility] AST [Catalytic activity/Vol] 29 U/L 10 - 39 U/L [facility] Bilirubin [Mass/Vol] 1.0 mg/dL NINF - 1.5 mg/dL [facility] Bilirubin.direct [Mass/Vol] 0.2 mg/dL NINF - 0.3 mg/dL [facility] Protein [Mass/Vol] 6.8 g/dL 6.4 - 8.3 g/dL [facility] Albumin [Mass/Vol] 3.3 g/dL Low 3.5-5.0 [facility] Comment on above: Performed By: #### H DOMENICA MONCADA CHM7 ####[facility] (DEFAULT)[address] [place] [address] ALP [Catalytic activity/Vol] 112 U/L Normal 32-126 [facility] Comment on above: Performed By: #### H DOMENICA MONCADA CHM7 ####[facility] (DEFAULT)[address] [place] [address] ALT [Catalytic activity/Vol] 21 U/L Normal 10-52 [facility] Comment on above: Performed By: #### H DOMENICA MONCADA CHM7 ####[facility] (DEFAULT)[address] [place] [address] AST [Catalytic activity/Vol] 29 U/L Normal 10-39 [facility] Comment on above: Performed By: #### H DOMENICA MONCADA CHM7 ####[facility] (DEFAULT)[address] [place] [address] Bilirubin [Mass/Vol] 1.0 mg/dL Normal <1.5 [facility] Comment on above: Performed By: #### H DOMENICA MONCADA CHM7 ####[facility] (DEFAULT)[address] [place] [address] Bilirubin.indirect [Mass/Vol] 0.2 mg/dL Normal <0.3 [facility] Comment on above: Performed By: #### H DOMENICA MONCADA CHM7 ####[facility] (DEFAULT)[address] [place] [address] Protein [Mass/Vol] 6.8 g/dL Normal 6.4-8.3 [facility] Comment on above: Performed By: #### H DOMENICA MONCADA CHM7 ####[facility] (DEFAULT)[address] [place] [address] L. pneumophila 1 Ag IA Ql (U )Ordered By: Carolin Miles on 09-01-2023 Interpretation and review of laboratory results Normal [facility] LEGIONELLA URINARY AGOrdered By: Carolin Miles on 09-01-2023 L. pneumophila 1 Ag IA Ql (U) Negative Negative [facility] MAGNESIUMon 09-01-2023 Interpretation and review of laboratory results Normal [facility] Magnesium [Mass/Vol] 1.6 mg/dL 1.6 - 2 .6 mg/dL [facility] Magnesium [Mass/Vol] 1.6 mg/dL Normal 1.6-2.6 [facility] Comment on above: Performed By: #### H DOMENICA MONCADA CHM7 ####[facility] (DEFAULT)[address] [place] [address] No Panel Informationon 09-01 Interpretation and review of laboratory results Abnormal [facility] PARVOVIRUS (B19) DNA, PCR, B Jenise 09-01-2023 PARVOVIRUS B19 BY RAPID PCR Not detected Normal Not Detected [facility] Comment on above: Result Comment: The primers/probe used in this assay will detectparvovirus B19 and V9 (genotypes 1 # 3) but maynot detect parvovirus genotype 2. The majority ofcirculating Parvovirus B19 strains in the [facility] are genotype 1. Genotype 2 is not believed tocirculate widely in the [facility], but has beenassociated with similar clinical features as genotype1. Genotype 3 is most prevalent in some [facility].This test was developed and its analyticalperformance characteristics have been determinedby [place].It has not been cleared or approved by the FDA. Thisassay has been validated pursuant to the CLIAregulations and is used for clinical purposes.Test Performed at:[employer] [address] [id number] Benavides M.D., Ph.D.,Director of Laboratories Performed By: #### Y PRVP ####[facility] (DEFAULT)[address] [place] [address] [place] SPEC SOURCE Whole Blood Normal [facility] Comment on above: Performed By: #### Y PRVP ####[facility] (DEFAULT)[address] [place] [address] ASPERGILLUS (GALACTOMANNAN), ANTIGENon 08-31-2023 Aspergillus Antigen <0.500 Normal <0.5 [facility] Comment on above: Result Comment: ---- ADDITIONAL INFORMATION This is a qualitative test and the resulted index value isnot indicative of disease severity. Serial testing isrecommended for patients at high risk for invasiveaspergillosis.This assay was performed using the FDA-cleared [employer] Aspergillus Galactomannan EIA.Test Performed by:[address] [address]Gcj Director: Rosendo Bose M.D. Ph.D.; CLIA# [id number] Performed By: #### Y ASP ####[facility] (DEFAULT)[address] [place] [address] CBC,PLATELETSon 08-31-2023 Erythrocyte distribution width (RBC) [Ratio] 13.3 % 10.9 - 14.3 % [facility] Hematocrit (Bld) [Volume fraction] 39.4 % Low 39.6 - 48.8 % [facility] Hemoglobin (Bld) [Mass/Vol] 12.8 g/dL Low 13.4 - 16.8 g/dL [facility] Interpretation and review of laboratory results Abnormal [facility] MCH (RBC) [Entitic mass] 27.6 pg 26.1 - 33.3 pg [facility] MCHC (RBC) [Mass/Vol] 32.5 g/dL 31.9 - 36.5 g/dL [facility] MCV (RBC) [Entitic vol] 85.1 fL 79.0 - 94.5 fL [facility] Platelet mean volume (Bld) [Entitic vol] 9.6 fL 8.7 - 12.3 fL [facility] Platelets (Bld) [#/Vol] 228 10*3/uL 146 - 337 K/uL [facility] RBC (Bld) [#/Vol] 4.63 10*6/uL [facility] WBC (Bld) [#/Vol] 4.77 10*3/uL 3.73 - 10. 10 K/uL [facility] Hematocrit (Bld) [Volume fraction] 39.4 % Low 39.6-48.8 [facility] Comment on above: Performed By: #### H [facility] ####[facility] (DEFAULT)[address] [place] [address] Hemoglobin (Bld) [Mass/Vol] 12.8 g/dL Low 13.4-16.8 [facility] Comment on above: Performed By: #### H [facility] ####[facility] (DEFAULT)[address] [place] [address] MCV (RBC) [Entitic vol] 85.1 fL Normal 79.0-94.5 [facility] Comment on above: Performed By: #### H EMOGC ####[facility] (DEFAULT)[address] [place] [address] Mean Cell Hgb 27.6 pg Normal 26.1-33.3 [facility] Comment on above: Performed By: #### H EMOGC ####[facility] (DEFAULT)[address] [place] [address] Mean Cell Hgb Conc 32.5 g/dL Normal 31.9-36.5 [facility] Comment on above: Performed By: #### H EMOGC ####[facility] (DEFAULT)[address] [place] [address] Platelet mean volume (Bld) [Entitic vol] 9.6 fL Normal 8.7-12.3 [facility] Comment on above: Performed By: #### H EMOGC ####[facility] (DEFAULT)[address] [place] [address] Platelets (Bld) [#/Vol] 228 10*3/uL Normal 146-337 [facility] [facility] Comment on above: Performed By: #### H EMOGC ####[facility] (DEFAULT)[address] [place] [address] RBC (Bld) [#/Vol] 4.63 10*6/uL Normal 4.38-5.83 [facility] Comment on above: Performed By: #### H EMOGC ####[facility] (DEFAULT)[address] [place] [address] RBC Distribution 13.3 % Normal 10.9-14.3 [facility] Comment on above: Performed By: #### H EMOGC ####[facility] (DEFAULT)[address] [place] [address] WBC (Bld) [#/Vol] 4.77 10*3/uL Normal 3.73-10.10 [facility] Comment on above: Performed By: #### [facility] ####[facility] (DEFAULT)[address] [place] [address] CHEM 7 (LYTES,BUN,CREA,GLUC) on 08-31-2023 Anion gap [Moles/Vol] 13 mmol/L 7 - 17 mmol/L [facility] Chloride [Moles/Vol] 102 mmol/L 98 - 10 8 mmol/L [facility] CO2 [Moles/Vol] 23 mmol/L 21 - 31 mmol/L [facility] Creatinine [Mass/Vol] 1.37 mg/dL High 0.70 - 1.30 mg/dL [facility], [facility]-E[facility], [facility] 62 - [facility] Glucose [Mass/Vol] 112 mg/dL High 70 - 99 mg/dL [facility] Osmolality Calc [Osmolality] 284 [facility] Potassium [Moles/Vol] 4.4 mmol/L 3.5 - 5.0 mmol/L [facility] Sodium [Moles/Vol] 134 mmol/L Low 135 - 145 mmol/L [facility] Urea nitrogen [Mass/Vol] 16 mg/dL 7 - 25 mg/dL [facility] Urea nitrogen/Creatinine [Mass ratio] 12 mg[facility] Anion gap [Moles/Vol] 13 mmol/L Normal 7-17 [facility] Comment on above: Performed By: #### M TAVO BLOOM, FERROBERT, PROCAL, CHM7 ####U [facility] (DEFAULT)[address] [place] [address] Chloride [Moles/Vol] 102 mmol/L Normal 98-108 [facility] Comment on above: Performed By: #### M MERLE HFP, FERIB, PROCAL, CHM7 ####[facility] (DEFAULT)[address] [place] [address] CO2 [Moles/Vol] 23 mmol/L Normal 21-31 [facility] Comment on above: Performed By: #### M GO, HFP, FERIB, PROCAL, CHM7 ####[facility] (DEFAULT)[address] [place] [address] Creatinine [Mass/Vol] 1.37 mg/dL High 0.70-1.30 [facility] Comment on above: Performed By: #### M GO, HFP, FERIB, PROCAL, CHM7 ####[facility] (DEFAULT)[address] [place] [address] GFR/1.73 sq M.predicted among non-blacks MDRD (S/P/Bld) [Vol rate/Area] 62 mL/min/{1.73_m2} Normal >=60 [facility] Comment on above: Result Comment: Repo rted eGFR is based on the CKD-EPI 2020 equation using creatinine, age, and sex. Performed By: #### M GO, HFP, FERIB, PROCAL, CHM7 ####[facility] (DEFAULT)[address] [place] [address] Glucose [Mass/Vol] 112 mg/dL High 70-99 [facility] Comment on above: Performed By: #### M GO, HFP, FERIB, PROCAL, CHM7 ####[facility] (DEFAULT)[address] [place] [address] Osmolality [Osmolality] 284 mosm/kg Normal 278-305 [facility] Comment on above: Performed By: #### M GO, HFP, FERIB, PROCAL, CHM7 ####[facility] (DEFAULT)[address] [place] [address] Potassium [Moles/Vol] 4.4 mmol/L Normal 3.5-5.0 [facility] Comment on above: Performed By: #### M GO, HFP, FERIB, PROCAL, CHM7 ####[facility] (DEFAULT)[address] [place] [address] Sodium [Moles/Vol] 134 mmol/L Low 135-145 [facility] Comment on above: Performed By: #### M GO, HFP, FERIB, PROCAL, CHM7 ####[facility] [place] [address] Urea nitrogen [Mass/Vol] 16 mg/dL Normal 7-25 [facility] Comment on above: Performed By: #### M GO, HFP, FERIB, PROCAL, CHM7 ####[facility] (DEFAULT)[address] [place] [address] Urea nitrogen/Creatinine [Mass ratio] 12 mg/mg Normal [facility] Comment on above: Performed By: #### M GO, HFP, FERIB, PROCAL, CHM7 ####[facility] (DEFAULT)[address] [place] [address] CT ABDOMEN/PELVIS WITHOUT CO NTRASTon 08-31-2023 CT ABDOMEN/PELVIS WITHOUT CONTRAST Normal [facility] CT Abdomen and Pelvis WO con traston 08-31-2023 RADIOLOGY RADIOLOGY [facility] Radiology Study observation (narrative) [facility] CT Abdomen and Pelvis WO con trastOrdered By: Chavez Larkin on 08-31-2023 [facility] Work Phone: CT CHEST WITHOUT CONTRASTon 08-31-2023 CT CHEST WITHOUT CONTRAST Normal [facility] CT Chest WO contraston 08-31 RADIOLOGY RADIOLOGY [facility] Radiology Study observation (narrative) [facility] CT Chest WO contrastOrdered By: Daisha Patterson on 08-31-2023 [facility] Work Phone: FERRITINon 08-31-2023 Ferritin [Mass/Vol] 409.0 ng/mL High 10.5 - 3 07.3 ng/mL [facility] Interpretation and review of laboratory results Abnormal [facility] Ferritin [Mass/Vol] 409.0 ng/mL High 10.5-307.3 [facility] Comment on above: Performed By: #### M MERLE HFP, FERIB, PROCAL, CHM7 ####[facility] (DEFAULT)[address] [place] [address] HEPATIC FUNCTION PANELon Albumin [Mass/Vol] 3.3 g/dL Low 3.5 - 5.0 g/dL [facility] ALP [Catalytic activity/Vol] 113 U/L 32 - 126 U/L [facility] ALT [Catalytic activity/Vol] 25 U/L 10 - 52 U/L [facility] AST [Catalytic activity/Vol] 31 U/L 10 - 39 U/L [facility] Bilirubin [Mass/Vol] 1.1 mg/dL NINF - 1.5 mg/dL [facility] Bilirubin.direct [Mass/Vol] 0.3 mg/dL High NINF - 0.3 mg/dL [facility] Protein [Mass/Vol] 7.0 g/dL 6.4 - 8.3 g/dL [facility] Albumin [Mass/Vol] 3.3 g/dL Low 3.5-5.0 [facility] Comment on above: Performed By: #### M MERLE HFP, FERIB, PROCAL, CHM7 ####[facility] (DEFAULT)[address] [place] [address] ALP [Catalytic activity/Vol] 113 U/L Normal 32-126 [facility] Comment on above: Performed By: #### M MERLE HFP, FERIB, PROCAL, CHM7 ####[facility] (DEFAULT)[address] [place] [address] ALT [Catalytic activity/Vol] 25 U/L Normal 10-52 [facility] Comment on above: Performed By: #### M GO, HFP, FERIB, PROCAL, CHM7 ####[facility] (DEFAULT)[address] [place] [address] AST [Catalytic activity/Vol] 31 U/L Normal 10-39 [facility] Comment on above: Performed By: #### M GO, HFP, FERIB, PROCAL, CHM7 ####[facility] (DEFAULT)[address] [place] [address] Bilirubin [Mass/Vol] 1.1 mg/dL Normal <1.5 [facility] Comment on above: Performed By: #### M GO, HFP, FERIB, PROCAL, CHM7 ####[facility] (DEFAULT)[address] [facility] [place] [address] Bilirubin.indirect [Mass/Vol] 0.3 mg/dL High <0.3 [facility] Comment on above: Performed By: #### M GO, HFP, FERIB, PROCAL, CHM7 ####[facility] (DEFAULT)[address] [place] [address] Protein [Mass/Vol] 7.0 g/dL Normal 6.4-8.3 [facility] Comment on above: Performed By: #### M GO, HFP, FERIB, PROCAL, CHM7 ####[facility] (DEFAULT)[address] [place] [address] LEGIONELLA URINARY AGon 10- Legionella Urinary Antigen Negative Normal Negative [facility] Comment on above: Performed By: #### L EGION ####[facility] (DEFAULT)[address] [place] [address] MAGNESIUMon 08-31-2023 Interpretation and review of laboratory results Normal [facility] Magnesium [Mass/Vol] 1.7 mg/dL 1.6 - 2 .6 mg/dL [facility] Magnesium [Mass/Vol] 1.7 mg/dL Normal 1.6-2.6 [facility] Comment on above: Performed By: #### M MERLE HFP, FERIB, PROCAL, CHM7 ####[facility] (DEFAULT)[address] [place] [address] No Panel Informationon 08-31 Interpretation and review of laboratory results Abnormal [facility] PROCALCITONINon 08-31-2023 Interpretation and review of laboratory results Normal [facility] Procalcitonin [Mass/Vol] 0.23 ng/mL NINF - 0.50 ng/mL [facility] Procalcitonin 0.23 ng/mL Normal <0.50 [facility] Comment on above: Result Comment: Proc alcitonin [...] and trend procalcitonin in various clinical settings. [email or web address].tvource.[facility]/departments/Pharmacy/_[email or web address]/Wopi Frame.aspx?sourcedoc=/departments/Pharmacy/Documents/GDLProcalcit onin.docx&action=default&DefaultItemOpen=1Two common cutoffs associated with bacterial infections are as follows.Respiratory tract infections: >0.25 ng/mLSepsis/septic shock: >0.5 ng/mLProcalcitonin should not be used alone as a diagnostic tool, however. All procalcitonin results should be interpreted in association with the patients clinical condition and all laboratory findings. Performed By: #### M MERLE, HFP, FERIB, PROCAL, CHM7 ####[facility] (DEFAULT)[address] [place] [address] TACROLIMUS LEVEL, TROUGH (IL E DRUG LEVEL)Ordered By: Yanira Marcum on 08-31-2023 Interpretation and review of laboratory results Normal [facility] Tacrolimus (Bld) [Mass/Vol] 5.9 ng/mL [facility] TACROLIMUS LEVEL, TROUGH (IL E DRUG LEVEL)on 08-31-2023 Tacrolimus, Trough 5.9 ng/mL Normal [facility] ow Transplant: 4.0-12.0, Therapeutic: 5.0-15.0 [facility] Comment on above: Order Comment: Pleas e draw at specified interval PRIOR to dose. Do not hold dose to wait for level. Specimens batched twice per day, (M-F) and once per day weekendsMethod performed is a chemiluminescent microparticle immunoasssay on the [employer] i2000.The range is based on experience at [facility] and users should be aware that target concentrations vary widely depending on concomitant therapy, time post-transplant, and desired degree of immunosuppression. Performed By: #### T ACRO ####[facility] (DEFAULT)[address] [place] [address] URINE CULTUREOrdered By: Jorge crowe Held on 08-31-2023 Bacteria identified Cx Nom (Unsp spec) No Growth [facility] DARYL AURIS SCREEN BY PCRO rdered By: Mynor Alejandro on 08-30-2023 Daryl auris Screen by PCR Not detected Not Detected [facility] Interpretation and review of laboratory results Normal [facility] CBC,PLATELETSon 08-30-2023 Erythrocyte distribution width (RBC) [Ratio] 13.3 % 10.9 - 14.3 % [facility] Hematocrit (Bld) [Volume fraction] 41.3 % 39.6 - 48.8 % [facility] Hemoglobin (Bld) [Mass/Vol] 13.2 g/dL Low 13.4 - 16.8 g/dL [facility] Interpretation and review of laboratory results Abnormal [facility] MCH (RBC) [Entitic mass] 27.3 pg 26.1 - 33.3 pg [facility] MCHC (RBC) [Mass/Vol] 32.0 g/dL 31.9 - 36.5 g/dL [facility] MCV (RBC) [Entitic vol] 85.5 fL 79.0 - 94.5 fL [facility] Platelet mean volume (Bld) [Entitic vol] 9.2 fL 8.7 - 12.3 fL [facility] Platelets (Bld) [#/Vol] 235 10*3/uL 146 - 337 K/uL [facility] RBC (Bld) [#/Vol] 4.83 10*6/uL [facility] WBC (Bld) [#/Vol] 4.96 10*3/uL 3.73 - 10. 10 K/uL [facility] Hematocrit (Bld) [Volume fraction] 41.3 % Normal 39.6-48.8 [facility] Comment on above: Performed By: #### H EMO ####[facility] (DEFAULT)[address] [place] [address] Hemoglobin (Bld) [Mass/Vol] 13.2 g/dL Low 13.4-16.8 [facility] Comment on above: Performed By: #### H EMO ####[facility] (DEFAULT)[address] [place] [address] MCV (RBC) [Entitic vol] 85.5 fL Normal 79.0-94.5 [facility] Comment on above: Performed By: #### H EMOGC ####[facility] (DEFAULT)[address] [place] [address] Mean Cell Hgb 27.3 pg Normal 26.1-33.3 [facility] Comment on above: Performed By: #### H EMOGC ####[facility] (DEFAULT)[address] [place] [address] Mean Cell Hgb Conc 32.0 g/dL Normal 31.9-36.5 [facility] Comment on above: Performed By: #### H EMOGC ####[facility] (DEFAULT)[address] [place] [address] Platelet mean volume (Bld) [Entitic vol] 9.2 fL Normal 8.7-12.3 [facility] Comment on above: Performed By: #### H EMO ####[facility] (DEFAULT)[address] [place] [address] Platelets (Bld) [#/Vol] 235 10*3/uL Normal 146-337 [facility] Comment on above: Performed By: #### H EMO ####[facility] (DEFAULT)[address] [place] [address] RBC (Bld) [#/Vol] 4.83 10*6/uL Normal 4.38-5.83 [facility] Comment on above: Performed By: #### H EMO ####[facility] (DEFAULT)[address] [place] [address] RBC Distribution 13.3 % Normal 10.9-14.3 [facility] Comment on above: Performed By: #### H EMO ####[facility] (DEFAULT)[address] [place] [address] WBC (Bld) [#/Vol] 4.96 10*3/uL Normal 3.73-10.10 [facility] Comment on above: Performed By: #### [facility] ####[facility] (DEFAULT)[address] [place] [address] CHEM 7 (LYTES,BUN,CREA,GLUC) on 08-30-2023 Anion gap [Moles/Vol] 14 mmol/L 7 - 17 mmol/L [facility] Chloride [Moles/Vol] 102 mmol/L 98 - 10 8 mmol/L [facility] CO2 [Moles/Vol] 20 mmol/L Low 21 - 31 mmol/L [facility] Creatinine [Mass/Vol] 1.56 mg/dL High 0.70 - 1.30 mg/dL [facility] eGFR, CKD-EPI, Male 53 Low - PINF [facility] Glucose [Mass/Vol] 123 mg/dL High 70 - 99 mg/dL [facility] Osmolality Calc [Osmolality] 281 [facility] Potassium [Moles/Vol] 4.3 mmol/L 3.5 - 5.0 mmol/L [facility] Sodium [Moles/Vol] 132 mmol/L Low 135 - 145 mmol/L [facility] Urea nitrogen [Mass/Vol] 16 mg/dL 7 - 25 mg/dL [facility] Urea nitrogen/Creatinine [Mass ratio] 10 mg/mg [facility] Anion gap [Moles/Vol] 14 mmol/L Normal 7-17 [facility] Comment on above: Performed By: #### NATHANIEL RAMÍREZ, HFP ####[facility] (DEFAULT)[address] [place] [address] Chloride [Moles/Vol] 102 mmol/L Normal 98-108 [facility] Comment on above: Performed By: #### NATHANIEL RAMÍREZ, HFP ####[facility] (DEFAULT)[address] [place] [address] CO2 [Moles/Vol] 20 mmol/L Low 21-31 [facility] Comment on above: Performed By: #### NATHANIEL RAMÍREZ, HFP ####[facility] (DEFAULT)[address] [place] [address] Creatinine [Mass/Vol] 1.56 mg/dL High 0.70-1.30 [facility] Comment on above: Performed By: #### NATHANIEL RAMÍREZ, HFP ####[facility] (DEFAULT)[address] [place] [address] GFR/1.73 sq M.predicted among non-blacks MDRD (S/P/Bld) [Vol rate/Area] 53 mL/min/{1.73_m2} Low >=60 [facility] Comment on above: Result Comment: Repo rted eGFR is based on the CKD-EPI 2020 equation using creatinine, age, and sex. Performed By: #### NATHANIEL RAMÍREZ, HFP ####U [facility] (DEFAULT)[address] [place] [address] Glucose [Mass/Vol] 123 mg/dL High 70-99 [facility] Comment on above: Performed By: #### NATHANIEL RAMÍREZ, HFP ####U [facility] (DEFAULT)[address] [place] [address] Osmolality [Osmolality] 281 mosm/kg Normal 278-305 [facility] Comment on above: Performed By: #### NATHANIEL RAMÍREZ, HFP ####[facility] (DEFAULT)[address] [place] [address] Potassium [Moles/Vol] 4.3 mmol/L Normal 3.5-5.0 [facility] Comment on above: Performed By: #### NATHANIEL RAMÍREZ, HFP ####[facility] (DEFAULT)[address] [place] [address] Sodium [Moles/Vol] 132 mmol/L Low 135-145 [facility] Comment on above: Performed By: #### NATHANIEL RAMÍREZ, HFP ####[facility] (DEFAULT)[address] [place] [address] Urea nitrogen [Mass/Vol] 16 mg/dL Normal 7-25 [facility] Comment on above: Performed By: #### NATHANIEL RAMÍREZ, HFP ####[facility] (DEFAULT)[address] [place] [address] Urea nitrogen/Creatinine [Mass ratio] 10 mg/mg Normal [facility] Comment on above: Performed By: #### NATHANIEL RAMÍREZ, HFP ####[facility] (DEFAULT)[address] [place] [address] EXTRA MICROon 08-30-2023 [facility] HEPATIC FUNCTION PANELon Albumin [Mass/Vol] 3.7 g/dL 3.5 - 5.0 g/dL [facility] ALP [Catalytic activity/Vol] 115 U/L 32 - 126 U/L [facility] ALT [Catalytic activity/Vol] 22 U/L 10 - 52 U/L [facility] AST [Catalytic activity/Vol] 34 U/L 10 - 39 U/L [facility] Bilirubin [Mass/Vol] 1.2 mg/dL NINF - 1.5 mg/dL [facility] Bilirubin.direct [Mass/Vol] 0.3 mg/dL High NINF - 0.3 mg/dL [facility] Protein [Mass/Vol] 7.7 g/dL 6.4 - 8.3 g/dL [facility] Albumin [Mass/Vol] 3.7 g/dL Normal 3.5-5.0 [facility] Comment on above: Performed By: #### NATHANIEL RAMÍREZ, HFP ####[facility] (DEFAULT)[address] [place] [address] ALP [Catalytic activity/Vol] 115 U/L Normal 32-126 [facility] Comment on above: Performed By: #### NATHANIEL RAMÍREZ, HFP ####U [facility] (DEFAULT)[address] [place] [address] ALT [Catalytic activity/Vol] 22 U/L Normal 10-52 [facility] Comment on above: Performed By: #### NATHANIEL RAMÍREZ, HFP ####[facility] (DEFAULT)[address] [place] [address] AST [Catalytic activity/Vol] 34 U/L Normal 10-39 [facility] Comment on above: Performed By: #### NATHANIEL RAMÍREZ, HFP ####[facility] (DEFAULT)[address] [place] [address] Bilirubin [Mass/Vol] 1.2 mg/dL Normal <1.5 [facility] Comment on above: Performed By: #### NATHANIEL RAMÍREZ, HFP ####[facility] (DEFAULT)[address] [place] [address] Bilirubin.indirect [Mass/Vol] 0.3 mg/dL High <0.3 [facility] Comment on above: Performed By: #### NATHANIEL RAMÍREZ, HFP ####[facility] (DEFAULT)[address] [place] [address] Protein [Mass/Vol] 7.7 g/dL Normal 6.4-8.3 [facility] Comment on above: Performed By: #### M NATHANIEL BLOOM, HFP ####[facility] (DEFAULT)[address] [place] [address] MAGNESIUMon 08-30-2023 Interpretation and review of laboratory results Normal [facility] Magnesium [Mass/Vol] 1.8 mg/dL 1.6 - 2 .6 mg/dL [facility] Magnesium [Mass/Vol] 1.8 mg/dL Normal 1.6-2.6 [facility] Comment on above: Performed By: #### NATHANIEL RAMÍREZ, HFP ####[facility] (DEFAULT)[address] [place] [address] No Panel Informationon 08-30 Interpretation and review of laboratory results Abnormal [facility] CBC,PLATELETSon 08-29-2023 Erythrocyte distribution width (RBC) [Ratio] 13.4 % 10.9 - 14.3 % [facility] Hematocrit (Bld) [Volume fraction] 37.6 % Low 39.6 - 48.8 % [facility] Hemoglobin (Bld) [Mass/Vol] 12.2 g/dL Low 13.4 - 16.8 g/dL [facility] Interpretation and review of laboratory results Abnormal [facility] MCH (RBC) [Entitic mass] 27.6 pg 26.1 - 33.3 pg [facility] MCHC (RBC) [Mass/Vol] 32.4 g/dL 31.9 - 36.5 g/dL [facility] MCV (RBC) [Entitic vol] 85.1 fL 79.0 - 94.5 fL [facility] Platelet mean volume (Bld) [Entitic vol] 9.4 fL 8.7 - 12.3 fL [facility] Platelets (Bld) [#/Vol] 233 10*3/uL 146 - 337 K/uL [facility] RBC (Bld) [#/Vol] 4.42 10*6/uL [facility] WBC (Bld) [#/Vol] 4.92 10*3/uL 3.73 - 10. 10 K/uL [facility] Hematocrit (Bld) [Volume fraction] 37.6 % Low 39.6-48.8 [facility] Comment on above: Performed By: #### H [facility] ####[facility] (DEFAULT)[address] [place] [address] Hemoglobin (Bld) [Mass/Vol] 12.2 g/dL Low 13.4-16.8 [facility] Comment on above: Performed By: #### H [facility] ####[facility] (DEFAULT)[address] [place] [address] MCV (RBC) [Entitic vol] 85.1 fL Normal 79.0-94.5 [facility] Comment on above: Performed By: #### H EMO ####[facility] (DEFAULT)[address] [place] [address] Mean Cell Hgb 27.6 pg Normal 26.1-33.3 [facility] Comment on above: Performed By: #### H EMOGC ####[facility] (DEFAULT)[address] [place] [address] Mean Cell Hgb Conc 32.4 g/dL Normal 31.9-36.5 [facility] Comment on above: Performed By: #### H EMOGC ####[facility] (DEFAULT)[address] [place] [address] Platelet mean volume (Bld) [Entitic vol] 9.4 fL Normal 8.7-12.3 [facility] Comment on above: Performed By: #### [facility] ####[facility] (DEFAULT)[address] [place] [address] Platelets (Bld) [#/Vol] 233 10*3/uL Normal 146-337 [facility] Comment on above: Performed By: #### [facility] ####[facility] (DEFAULT)[address] [place] [address] RBC (Bld) [#/Vol] 4.42 10*6/uL Normal 4.38-5.83 [facility] Comment on above: Performed By: #### [facility] ####[facility] (DEFAULT)[address] [place] [address] RBC Distribution 13.4 % Normal 10.9-14.3 [facility] Comment on above: Performed By: #### [facility] ####[facility] (DEFAULT)[address] [place] [address] WBC (Bld) [#/Vol] 4.92 10*3/uL Normal 3.73-10.10 [facility] Comment on above: Performed By: #### [facility] ####[facility] (DEFAULT)[address] [place] [address] CHEM 7 (LYTES,BUN,CREA,GLUC) on 08-29-2023 Anion gap [Moles/Vol] 13 mmol/L 7 - 17 mmol/L [facility] Chloride [Moles/Vol] 105 mmol/L 98 - 10 8 mmol/L [facility] CO2 [Moles/Vol] 20 mmol/L Low 21 - 31 mmol/L [facility] Creatinine [Mass/Vol] 1.55 mg/dL High 0.70 - 1.30 mg/dL [facility] eGFR, CKD-EPI, Male 54 Low - [facility] Glucose [Mass/Vol] 108 mg/dL High 70 - 99 mg/dL [facility] Osmolality Calc [Osmolality] 283 [facility] Potassium [Moles/Vol] 4.5 mmol/L 3.5 - 5.0 mmol/L [facility] Sodium [Moles/Vol] 133 mmol/L Low 135 - 145 mmol/L [facility] Urea nitrogen [Mass/Vol] 19 mg/dL 7 - 25 mg/dL [facility] Urea nitrogen/Creatinine [Mass ratio] 12 mg/mg [facility] Anion gap [Moles/Vol] 13 mmol/L Normal 7-17 [facility] [facility] Comment on above: Performed By: #### M GO, CHM7, HFP, GGTB ####[facility] (DEFAULT)[address] [place] [address] Chloride [Moles/Vol] 105 mmol/L Normal 98-108 [facility] Comment on above: Performed By: #### M GO, CHM7, HFP, GGTB ####[facility] (DEFAULT)[address] [place] [address] CO2 [Moles/Vol] 20 mmol/L Low 21-31 [facility] Comment on above: Performed By: #### M GO, CHM7, HFP, GGTB ####[facility] (DEFAULT)[address] [place] [address] Creatinine [Mass/Vol] 1.55 mg/dL High 0.70-1.30 [facility] Comment on above: Performed By: #### M GO, CHM7, HFP, GGTB ####[facility] (DEFAULT)[address] [place] [address] GFR/1.73 sq M.predicted among non-blacks MDRD (S/P/Bld) [Vol rate/Area] 54 mL/min/{1.73_m2} Low >=60 [facility] Comment on above: Result Comment: Repo rted eGFR is based on the CKD-EPI 2020 equation using creatinine, age, and sex. Performed By: #### M GO, CHM7, HFP, GGTB ####[facility] (DEFAULT)[address] [place] [address] Glucose [Mass/Vol] 108 mg/dL High 70-99 [facility] Comment on above: Performed By: #### M GO, CHM7, HFP, GGTB ####U [facility] (DEFAULT)[address] [place] [address] Osmolality [Osmolality] 283 mosm/kg Normal 278-305 [facility] Comment on above: Performed By: #### M GO, CHM7, HFP, GGTB ####U [facility] (DEFAULT)[address] [place] [address] Potassium [Moles/Vol] 4.5 mmol/L Normal 3.5-5.0 [facility] Comment on above: Performed By: #### M GO, CHM7, HFP, GGTB ####[facility] (DEFAULT)[address] [place] [address] Sodium [Moles/Vol] 133 mmol/L Low 135-145 [facility] Comment on above: Performed By: #### M GO, CHM7, HFP, GGTB ####[facility] (DEFAULT)[address] [place] [address] Urea nitrogen [Mass/Vol] 19 mg/dL Normal 7-25 [facility] Comment on above: Performed By: #### M GO, CHM7, HFP, GGTB ####[facility] (DEFAULT)[address] [facility] [place] [address] Urea nitrogen/Creatinine [Mass ratio] 12 mg/mg Normal [facility] Comment on above: Performed By: #### M GO, CHM7, HFP, GGTB ####[facility] (DEFAULT)[address] [place] [address] GGTon 08-29-2023 Gamma glutamyl transferase [Catalytic activity/Vol] 64 U/L 8 - 64 U/L [facility] Interpretation and review of laboratory results Normal [facility] Gamma glutamyl transferase [Catalytic activity/Vol] 64 U/L Normal 8-64 [facility] Comment on above: Performed By: #### M GO, CHM7, HFP, GGTB ####U [facility] (DEFAULT)[address] [place] [address] HEPATIC FUNCTION PANELon Albumin [Mass/Vol] 3.3 g/dL Low 3.5 - 5.0 g/dL [facility] ALP [Catalytic activity/Vol] 103 U/L 32 - 126 U/L [facility] ALT [Catalytic activity/Vol] 18 U/L 10 - 52 U/L [facility] AST [Catalytic activity/Vol] 27 U/L 10 - 39 U/L [facility] Bilirubin [Mass/Vol] 1.1 mg/dL [facility] mg/dL [facility] Bilirubin.direct [Mass/Vol] 0.3 mg/dL High NINF - 0.3 mg/dL [facility] Protein [Mass/Vol] 6.8 g/dL 6.4 - 8.3 g/dL [facility] Albumin [Mass/Vol] 3.3 g/dL Low 3.5-5.0 [facility] Comment on above: Performed By: #### M GO, CHM7, HFP, GGTB ####U [facility] (DEFAULT)[address] [place] [address] ALP [Catalytic activity/Vol] 103 U/L Normal 32-126 [facility] Comment on above: Performed By: #### M GO, CHM7, HFP, GGTB ####U [facility] (DEFAULT)[address] [place] [address] ALT [Catalytic activity/Vol] 18 U/L Normal 10-52 [facility] Comment on above: Performed By: #### M GO, CHM7, HFP, GGTB ####[facility] (DEFAULT)[address] [place] [address] AST [Catalytic activity/Vol] 27 U/L Normal 10-39 [facility] Comment on above: Performed By: #### M GO, CHM7, HFP, GGTB ####[facility] (DEFAULT)[address] [place] [address] Bilirubin [Mass/Vol] 1.1 mg/dL Normal <1.5 [facility] Comment on above: Performed By: #### M GO, CHM7, HFP, GGTB ####U [facility] (DEFAULT)[address] [facility] [place] [address] Bilirubin.indirect [Mass/Vol] 0.3 mg/dL High <0.3 [facility] Comment on above: Performed By: #### M GO, CHM7, HFP, GGTB ####[facility] (DEFAULT)[address] [facility] [place] [address] Protein [Mass/Vol] 6.8 g/dL Normal 6.4-8.3 [facility] Comment on above: Performed By: #### M GO, CHM7, HFP, GGTB ####[facility] (DEFAULT)[address] [place] [address] HISTOPLASMA AND BLASTOMYCES ANTIGEN, ENZYME IMMUNOASSAY, SERMon 08-29-2023 Histoplasma/Blastomy antonia Ag Result Detected Invalid Interpretation Code Not Detected [facility] Comment on above: Result Comment: Anti gen from Histoplasma or Blastomyces (unable todifferentiate) detected. Result should be correlated withclinical presentation, exposure history, and otherdiagnostic procedures, including culture, serology,histopathology, and/or radiographic findings, to aid in thedifferentiation between histoplasmosis and blastomycosis.CRITICAL RESULT Performed By: #### H IBAG ####[facility] (DEFAULT)[address] [place] [address] Histoplasma/Blastomy antonia Ag Value 5.3 ng/mL Normal [facility] Comment on above: Result Comment: ---- ADDITIONAL INFORMATION This test was developed and its performance characteristicsdetermined by [facility] in a manner consistent with CLIArequirements. This test has not been cleared or approved bythe U.S. Food and Drug Administration.Test Performed by:[facility] - [place] [id number] Director: Rosendo Bose M.D. Ph.D.; CLIA# [id number] Performed By: #### Lydia IBAG ####[facility] (DEFAULT)[address] [place] [address], [place] [address] HISTOPLASMA ANTIGEN,URINEon 08-29-2023 HISTOPLASM AG, URINE Not detected Normal Not Detected [facility] Comment on above: Result Comment: No H istoplasma antigen detected.False negative results may occur. Repeat testing on anew specimen should be considered if clinically indicated. Performed By: #### Noah HISTG ####[facility] (DEFAULT)[address] [place] [address], [place] [address] Histoplasma Ag Value Not detected Normal [facility] Comment on above: Result Comment: ---- ADDITIONAL INFORMATION This test has been modified from the fire control technician g'sinstructions. Its performance characteristics weredetermined by [facility] in a manner consistent withCLIA requirements. This test has not been cleared orapproved by the U.S. Food and Drug Administration.Test Performed by:[facility] - [address] [address]Atj Director: Rosendo Bose M.D. Ph.D.; CLIA# [id number] Performed By: #### Noah HISTG ####[facility] (DEFAULT)[address] [place] [address] MAGNESIUMon 08-29-2023 Interpretation and review of laboratory results Normal [facility] Magnesium [Mass/Vol] 1.7 mg/dL 1.6 - 2 .6 mg/dL [facility] Magnesium [Mass/Vol] 1.7 mg/dL Normal 1.6-2.6 [facility] Comment on above: Performed By: #### M GO, CHM7, HFP, GGTB ####[facility] (DEFAULT)[address] [place] [address] No Panel Informationon 08-29 Interpretation and review of laboratory results Abnormal [facility] PT,INR,PTTon 08-29-2023 aPTT Coag (PPP) [Time] 29.3 s [facility] INR Coag (Bld) [Relative time] 1.1 {INR} 0.9 - 1.1 [facility] Interpretation and review of laboratory results Normal [facility] PT Coag (PPP) [Time] 13.8 s [facility] aPTT Coag (Bld) [Time] 29.3 s Normal 24.0-34.3 [facility] Comment on above: Performed By: #### P TPTT ####[facility] (DEFAULT)[address] [place] [address] INR Coag (PPP) [Relative time] 1.1 {INR} Normal 0.9-1.1 [facility] Comment on above: Performed By: #### P TPTT ####[facility] (DEFAULT)[address] [place] [address] PT Coag (PPP) [Time] 13.8 s Normal 11.9-14.2 [facility] Comment on above: Performed By: #### P TPTT ####[facility] (DEFAULT)[address] [place] [address] Portable XR Chest Viewson RADIOLOGY RADIOLOGY [facility] Portable XR Chest ViewsOrder ed By: Gerald Baer on 08-29-2023 [facility] Work Phone: TACROLIMUS LEVEL, TROUGH (IL E DRUG LEVEL)on 08-29-2023 Interpretation and review of laboratory results Normal [facility] Tacrolimus (Bld) [Mass/Vol] 8.9 ng/mL [facility] Tacrolimus, Trough 8.9 ng/mL Normal [facility] Transplant: 4.0-12.0, Therapeutic: 5.0-15.0 [facility] Comment on above: Order Comment: Pleas e draw at specified interval PRIOR to dose. Do not hold dose to wait for level. Specimens batched twice per day, (M-F) and once per day weekendsMethod performed is a chemiluminescent microparticle immunoasssay on the [employer] i2000.The range is based on experience at [facility] and users should be aware that target concentrations vary widely depending on concomitant therapy, time post-transplant, and desired degree of immunosuppression. Performed By: #### T ACRO ####[facility] (DEFAULT)[address] [place] [address] Tacrolimus, Trough 8.7 ng/mL Normal [facility] Transplant: 4.0-12.0, Therapeutic: 5.0-15.0 [facility] Comment on above: Order Comment: Pleas e draw at specified interval PRIOR to dose. Do not hold dose to wait for level. Specimens batched twice per day, (M-F) and once per day weekendsMethod performed is a chemiluminescent microparticle immunoasssay on the [employer] i2000.The range is based on experience at [facility] and users should be aware that target concentrations vary widely depending on concomitant therapy, time post-transplant, and desired degree of immunosuppression. Performed By: #### T ACRO ####[facility] (DEFAULT)[address] [place] [address] TACROLIMUS LEVEL, TROUGH (IL E DRUG LEVEL)Ordered By: Roxanne Louie on 08-29-2023 Interpretation and review of laboratory results Normal [facility] Tacrolimus (Bld) [Mass/Vol] 8.7 ng/mL [facility] URINALYSIS REFLEX TO CULTURE PERFORMABLEOrdered By: Shaji Kelly on 08-29-2023 Appearance (U) Clear Clear [facility] Bacteria LM Ql (Urine sed) ABSENT ABSENT [facility] Calcium Oxalate Crystals PRESENT U [facility] Color (U) Yellow Yellow [facility] Epithelial cells.squamous LM Ql (Urine sed) 0-2/hpf 0-2/hpf, 3-5/hpf = 1+ [facility] Glucose Test strip (U) [Mass/Vol] Negative Negative [facility] Interpretation and review of laboratory results Abnormal [facility] Ketones (U) [Mass/Vol] Negative Negative [facility] Leukocyte esterase Test strip Ql (U) Negative Negative [facility] Nitrite Ql (U) Negative Negative [facility] pH (U) 6.0 [pH] 5.0 - 7.0 [facility] Protein (U) [Mass/Vol] Negative Negative [facility] RBC (U) [#/Vol] Trace Abnormal Negative [facility] RBC LM.HPF (Urine sed) [#/Area] 3-5 Abnormal [facility] Specific gravity (U) [Rel density] 1.015 1.001 - 1.035 [facility] Urobilinogen (U) [Mass/Vol] 1.0 E.U./dL 0.2 E.U/dL, 1.0 E.U/dL [facility] WBC LM.HPF (Urine sed) [#/Area] 0 - 5 [facility] URINALYSIS REFLEX TO CULTURE PERFORMABLEon 08-29-2023 Appearance (U) Clear Normal Clear [facility] Comment on above: Order Comment: For i ndwelling catheters, specimen collection is acceptable on catheter day 1 and 2 only. ? Performed By: #### U [id number] ####[facility] (DEFAULT)[address] [place] [address] Bacteria ABSENT Normal ABSENT [facility] Comment on above: Order Comment: For i ndwelling catheters, specimen collection is acceptable on catheter day 1 and 2 only. ? Performed By: #### U [id number] ####[facility] (DEFAULT)[address] [place] [address] Blood Urine Trace Abnormal Negative [facility] Comment on above: Order Comment: For i ndwelling catheters, specimen collection is acceptable on catheter day 1 and 2 only. ? Performed By: #### U [id number] ####[facility] (DEFAULT)[address] [place] [address] Calcium Oxalate Crystals PRESENT Normal [facility] Comment on above: Order Comment: For i ndwelling catheters, specimen collection is acceptable on catheter day 1 and 2 only. ? Performed By: #### U [id number] ####[facility] (DEFAULT)[address] [place] [address] Color (U) Yellow Normal Yellow [facility] Comment on above: Order Comment: For i ndwelling catheters, specimen collection is acceptable on catheter day 1 and 2 only. ? Performed By: #### U [id number] ####[facility] (DEFAULT)[address] [place] [address] Glucose Ql (U) Negative Normal Negative [facility] Comment on above: Order Comment: For i ndwelling catheters, specimen collection is acceptable on catheter day 1 and 2 only. ? Performed By: #### U [id number] ####[facility] (DEFAULT)[address] [place] [address] Ketones Ql (U) Negative Normal Negative [facility] Comment on above: Order Comment: For i ndwelling catheters, specimen collection is acceptable on catheter day 1 and 2 only. ? Performed By: #### U [id number] ####[facility] (DEFAULT)[address] [place] [address] Leukocyte esterase Test strip Ql (U) Negative Normal Negative [facility] Comment on above: Order Comment: For i ndwelling catheters, specimen collection is acceptable on catheter day 1 and 2 only. ? Performed By: #### U [id number] ####[facility] (DEFAULT)[address] [place] [address] Nitrites Urine Negative Normal Negative [facility] Comment on above: Order Comment: For i ndwelling catheters, specimen collection is acceptable on catheter day 1 and 2 only. ? Performed By: #### U [id number] ####[facility] (DEFAULT)[address] [place] [address] pH (U) 6.0 [pH] Normal 5.0-7.0 [facility] Comment on above: Order Comment: For i ndwelling catheters, specimen collection is acceptable on catheter day 1 and 2 only. ? Performed By: #### U [id number] ####[facility] (DEFAULT)[address] [place] [address] Protein Urine Negative Normal Negative [facility] Comment on above: Order Comment: For i ndwelling catheters, specimen collection is acceptable on catheter day 1 and 2 only. ? Performed By: #### U [id number] ####[facility] (DEFAULT)[address] [place] [address] RBC Urine 3-5 Abnormal 0-2 [facility] Comment on above: Order Comment: For i ndwelling catheters, specimen collection is acceptable on catheter day 1 and 2 only. ? Performed By: #### U [id number] ####[facility] (DEFAULT)[address] [place] [address] Specific Dysart Urine 1.015 Normal 1.001-1.035 [facility] Comment on above: Order Comment: For i ndwelling catheters, specimen collection is acceptable on catheter day 1 and 2 only. ? Performed By: #### U [id number] ####[facility] (DEFAULT)[address] [place] [address] Squamous/Epithelial Cells 0-2/hpf Normal 0-2/hpf, 3-5/hpf = 1+ [facility] Comment on above: Order Comment: For i ndwelling catheters, specimen collection is acceptable on catheter day 1 and 2 only. ? Performed By: #### U [id number] ####[facility] (DEFAULT)[address] [place] [address] Urobilinogen Urine 1.0 E.U./dL Normal 0.2 E.U/d L, 1.0 E.U/dL [facility] Comment on above: Order Comment: For i ndwelling catheters, specimen collection is acceptable on catheter day 1 and 2 only. ? Performed By: #### U [id number] ####[facility] (DEFAULT)[address] [place] [address], [place] [address] WBC Urine 0 - 5 Normal 0 - 5 [facility] Comment on above: Order Comment: For i ndwelling catheters, specimen collection is acceptable on catheter day 1 and 2 only. ? Performed By: #### U [id number] ####[facility] (DEFAULT)[address] [place] [address], [place] [address] URINE CULTUREon 08-29-2023 Bacteria identified Cx Nom (U) No Growth Normal [facility] Comment on above: Order Comment: For i ndwelling catheters, specimen collection is acceptable on catheter day 1 and 2 only. Sung top vacutainer. Urine must be to the fill line to process (4mls). If minimum volume, send urine in a yellow top vacutainer tube. Performed By: #### U R ####[facility] (DEFAULT)[address] [place] [address], [place] [address] US RENAL TRANSPLANT SCANon 0 08-29-2023 US RENAL TRANSPLANT SCAN Normal [facility] US for transplanted kidney l imitedon 08-29-2023 RADIOLOGY RADIOLOGY [facility] Radiology Study observation (narrative) [facility] US for transplanted kidney l imitedOrdered By: Romana Matias on 08-29-2023 [facility] Work Phone: XR CHEST PORTABLEon 08-29-20 23 XR CHEST PORTABLE Normal [facility] BLOOD CULTUREon 08-28-2023 Bacteria identified Cx Nom (Unsp spec) NO GROWTH DAY 5 OF 5 Normal [facility] Comment on above: Order Comment: 2 Bot tles (1 Set - consists of 1 Aerobic bottle and 1 Anaerobic bottle) -1st Peripheral DrawFor syringe method draw:If able to obtain adequate sample (20 ml) inoculate anaerobic bottle firstIf inadequate sample obtained (less than 20 ml) inoculate aerobic bottle firstFor vacutainer method draw: Fill aerobic bottle first, then anaerobic Performed By: #### B LDCULT ####[facility] (DEFAULT)[address] [place] [address] Bacteria identified Cx Nom (Unsp spec) NO GROWTH DAY 5 OF 5 Normal [facility] Comment on above: Order Comment: 2 Bot tles (1 Set - consists of 1 Aerobic bottle and 1 Anaerobic bottle) -1st Peripheral DrawFor syringe method draw:If able to obtain adequate sample (20 ml) inoculate anaerobic bottle firstIf inadequate sample obtained (less than 20 ml) inoculate aerobic bottle firstFor vacutainer method draw: Fill aerobic bottle first, then anaerobic Performed By: #### B LDCULT ####[facility] (DEFAULT)[address] [place] [address] DARYL AURIS SCREEN BY PCRo n 08-28-2023 Daryl auris Screen by PCR Not detected Normal Not Detected [facility] Comment on above: Order Comment: This test was performed using a real-time PCR assay. This test was developed, and its performance characteristics determined by [facility]. It has not been cleared or approved by the FDA. The laboratory is regulated under CLIA as qualified to perform high-complexity testing. This test is used for clinical purposes. It should not be regarded as investigational or for research. Performed By: #### C ANDIDA AURIS SCREEN BY PCR ####U [facility] (DEFAULT)[address] [place] [address] CBC AND ELECTRONIC DIFFon Basophils (Bld) [#/Vol] K/uL 0.00 - 0.09 K/uL [facility] Basophils/100 WBC (Bld) 0.6 % [facility] Differential cell count method Nom (Bld) Electronic Differential [facility] Eosinophils (Bld) [#/Vol] 0.10 10*3/uL 0.00 - 0.48 K/uL [facility] Eosinophils/100 WBC (Bld) 2.1 % [facility] Erythrocyte distribution width (RBC) [Ratio] 13.4 % 10.9 - 14.3 % [facility] Hematocrit (Bld) [Volume fraction] 37.9 % Low 39.6 - 48.8 % [facility] Hemoglobin (Bld) [Mass/Vol] 12.4 g/dL Low 13.4 - 16.8 g/dL [facility] Immature granulocytes (Bld) [#/Vol] K/uL NINF - 0.07 K/uL [facility] Immature granulocytes/100 WBC (Bld) 0.6 % [facility] Interpretation and review of laboratory results Abnormal [facility] Lymphocytes (Bld) [#/Vol] 1.76 10*3/uL 0.83 - 3.57 K/uL [facility] Lymphocytes/100 WBC (Bld) 37.1 % [facility] MCH (RBC) [Entitic mass] 27.8 pg 26.1 - 33.3 pg [facility] MCHC (RBC) [Mass/Vol] 32.7 g/dL 31.9 - 36.5 g/dL [facility] MCV (RBC) [Entitic vol] 85.0 fL 79.0 - 94.5 fL [facility] Monocytes (Bld) [#/Vol] 0.66 10*3/uL 0.24 - 0.93 K/uL [facility] Monocytes/100 WBC (Bld) 13.9 % [facility] Neutrophils (Bld) [#/Vol] 2.16 10*3/uL 1.57 - 6.19 K/uL [facility] Nucleated RBC/100 WBC (Bld) [Ratio] 0.0 % NINF [facility] Platelet mean volume (Bld) [Entitic vol] 9.3 fL 8.7 - 12.3 fL [facility] Platelets (Bld) [#/Vol] 262 10*3/uL 146 - 337 K/uL [facility] RBC (Bld) [#/Vol] 4.46 10*6/uL [facility] Segmented neutrophils/100 WBC (Bld) 45.7 % [facility] WBC (Bld) [#/Vol] 4.74 10*3/uL 3.73 - 10. 10 K/uL [facility] Abs Baso Auto < Normal 0.00-0.09 [facility] Comment on above: Performed By: #### L [id number] ####[facility] (DEFAULT)[address] [place] [address] Basophils/100 WBC (Bld) 0.6 % Normal [facility] Comment on above: Performed By: #### L [id number] ####[facility] (DEFAULT)[address] [place] [address] DIFF STATUS Electronic Differential Normal [facility] Comment on above: Performed By: #### L [id number] ####[facility] (DEFAULT)[address] [place] [address] Eosinophils (Bld) [#/Vol] 0.10 10*3/uL Normal 0.00-0.48 [facility] Comment on above: Performed By: #### L [id number] ####[facility] (DEFAULT)[address] [place] [address] Eosinophils/100 WBC (Bld) 2.1 % Normal [facility] Comment on above: Performed By: #### L [id number] ####[facility] (DEFAULT)[address] [place] [address] Hematocrit (Bld) [Volume fraction] 37.9 % Low 39.6-48.8 [facility] Comment on above: Performed By: #### L [id number] ####[facility] (DEFAULT)[address] [place] [address], [place] [address] Hemoglobin (Bld) [Mass/Vol] 12.4 g/dL Low 13.4-16.8 [facility] Comment on above: Performed By: #### L [id number] ####[facility] (DEFAULT)[address] [place] [address], [place] [address] Immature Grans % 0.6 % Normal [facility] Comment on above: Performed By: #### L [id number] ####[facility] (DEFAULT)[address] [place] [address], [place] [address] Immature Grans Absolute < Normal <=0.07 [facility] [facility] Comment on above: Performed By: #### L [id number] ####[facility] (DEFAULT)[address] [place] [address] Lymphocytes (Bld) [#/Vol] 1.76 10*3/uL Normal 0.83-3.57 [facility] Comment on above: Performed By: #### L AB980 ####[facility] (DEFAULT)[address] [place] [address], [place] [address] Lymphocytes/100 WBC (Bld) 37.1 % Normal [facility] Comment on above: Performed By: #### L [id number] ####[facility] (DEFAULT)[address] [place] [address] MCV (RBC) [Entitic vol] 85.0 fL Normal 79.0-94.5 [facility] Comment on above: Performed By: #### L [id number] ####[facility] (DEFAULT)[address] [place] [address] [place] [address] Mean Cell Hgb 27.8 pg Normal 26.1-33.3 [facility] Comment on above: Performed By: #### L AB980 ####[facility] (DEFAULT)[address] [place] [address] Mean Cell Hgb Conc 32.7 g/dL Normal 31.9-36.5 [facility] Comment on above: Performed By: #### L [id number] ####[facility] (DEFAULT)[address] [place] [address] Monocytes (Bld) [#/Vol] 0.66 10*3/uL Normal 0.24-0.93 [facility] Comment on above: Performed By: #### L [id number] ####[facility] (DEFAULT)[address] [place] [address] Monocytes/100 WBC (Bld) 13.9 % Normal [facility] Comment on above: Performed By: #### L [id number] ####[facility] (DEFAULT)[address] [place] [address] Nucleated RBC 0.0 /100 WBC Normal <=0.2 [facility] Comment on above: Performed By: #### L [id number] ####[facility] (DEFAULT)[address] [place] [address] Platelet mean volume (Bld) [Entitic vol] 9.3 fL Normal 8.7-12.3 [facility] Comment on above: Performed By: #### L [id number] ####[facility] (DEFAULT)[address] [place] [address] Platelets (Bld) [#/Vol] 262 10*3/uL Normal 146-337 [facility] Comment on above: Performed By: #### L [id number] ####[facility] (DEFAULT)[address] [place] [address] RBC (Bld) [#/Vol] 4.46 10*6/uL Normal 4.38-5.83 [facility] Comment on above: Performed By: #### L AB980 ####[facility] (DEFAULT)[address] [place] [address] RBC Distribution 13.4 % Normal 10.9-14.3 [facility] Comment on above: Performed By: #### L AB980 ####[facility] (DEFAULT)[address] [place] [address] Segs + Bands Auto 45.7 % Normal [facility] Comment on above: Performed By: #### L AB980 ####[facility] (DEFAULT)[address] [place] [address] Segs + Bands,Absolute Auto 2.16 K/uL Normal 1.57-6.19 [facility] Comment on above: Performed By: #### L [id number] ####[facility] (DEFAULT)[address] [place] [address] WBC (Bld) [#/Vol] 4.74 10*3/uL Normal 3.73-10.10 [facility] Comment on above: Performed By: #### L [id number] ####[facility] (DEFAULT)[address] [place] [address] CHEM 6 (LYTES, BUN CREA)on 0 08-28-2023 Anion gap [Moles/Vol] 13 mmol/L 7 - 17 mmol/L [facility] Chloride [Moles/Vol] 103 mmol/L 98 - 10 8 mmol/L [facility] CO2 [Moles/Vol] 22 mmol/L 21 - 31 mmol/L [facility] Creatinine [Mass/Vol] 1.62 mg/dL High 0.70 - 1.30 mg/dL [facility] eGFR, CKD-EPI, Male 51 Low - PINF [facility] Interpretation and review of laboratory results Abnormal [facility] Potassium [Moles/Vol] 4.3 mmol/L 3.5 - 5.0 mmol/L [facility] Sodium [Moles/Vol] 134 mmol/L Low 135 - 145 mmol/L [facility] Urea nitrogen [Mass/Vol] 22 mg/dL 7 - 25 mg/dL [facility] Urea nitrogen/Creatinine [Mass ratio] 14 mg/mg [facility] Anion gap [Moles/Vol] 13 mmol/L Normal 7-17 [facility] Comment on above: Performed By: #### C HM6 ####[facility] (DEFAULT)[address] [place] [address] Chloride [Moles/Vol] 103 mmol/L Normal 98-108 [facility] Comment on above: Performed By: #### C HM6 ####[facility] (DEFAULT)[address] [place] [address] CO2 [Moles/Vol] 22 mmol/L Normal 21-31 [facility] Comment on above: Performed By: #### C HM6 ####[facility] (DEFAULT)[address] [place] [address] Creatinine [Mass/Vol] 1.62 mg/dL High 0.70-1.30 [facility] Comment on above: Performed By: #### C HM6 ####[facility] (DEFAULT)[address] [place] [address] GFR/1.73 sq M.predicted among non-blacks MDRD (S/P/Bld) [Vol rate/Area] 51 mL/min/{1.73_m2} Low >=60 [facility] Comment on above: Result Comment: Repo rted eGFR is based on the CKD-EPI 2020 equation using creatinine, age, and sex. Performed By: #### C HM6 ####[facility] (DEFAULT)[address] [place] [address] Potassium [Moles/Vol] 4.3 mmol/L Normal 3.5-5.0 [facility] Comment on above: Performed By: #### C HM6 ####[facility] (DEFAULT)[address] [place] [address] Sodium [Moles/Vol] 134 mmol/L Low 135-145 [facility] Comment on above: Performed By: #### C HM6 ####[facility] (DEFAULT)[address] [place] [address] Urea nitrogen [Mass/Vol] 22 mg/dL Normal 7-25 [facility] Comment on above: Performed By: #### C HM6 ####[facility] (DEFAULT)[address] [place] [address] Urea nitrogen/Creatinine [Mass ratio] 14 mg/mg Normal [facility] Comment on above: Performed By: #### C HM6 ####[facility] (DEFAULT)[address] [place] [address] IMMUNOCOMPROMISED RESPIRATOR Y PANELon 08-28-2023 Adenovirus - Pcr Not detected Normal Not Detected [facility] Comment on above: Order Comment: Viral transport [...] assay. Performed By: #### I CRESP ####[facility] (DEFAULT)[address] [place] [address] Bordetella Parapertussis Not detected Normal Not Detected [facility] Comment on above: Order Comment: Viral transport [...] acid assay. Performed By: #### I CRESP ####[facility] (DEFAULT)[address] [place] [address], [place] [address] Bordetella Pertussis Not detected Normal Not Detected [facility] Comment on above: Order Comment: Viral transport [...] acid assay. Performed By: #### I CRESP ####[facility] (DEFAULT)[address] [place] [address] Chlamydia Pneumoniae Not detected Normal Not Detected [facility] Comment on above: Order Comment: Viral transport [...] acid assay. Performed By: #### I CRESP ####[facility] (DEFAULT)[address] [place] [address], [place] [address] Coronavirus 229E Not detected Normal Not Detected [facility] Comment on above: Order Comment: Viral transport [...] acid assay. Performed By: #### I CRESP ####[facility] (DEFAULT)[address] [place] [address], [place] [address] Coronavirus Hku1 Not detected Normal Not Detected [facility] Comment on above: Order Comment: Viral transport [...] acid assay. Performed By: #### I CRESP ####[facility] (DEFAULT)[address] [place] [address], [place] [address] Coronavirus Nl63 Not detected Normal Not Detected [facility] Comment on above: Order Comment: Viral transport [...] acid assay. Performed By: #### I CRESP ####[facility] (DEFAULT)[address] [place] [address], [place] [address] Coronavirus Oc43 Not detected Normal Not Detected [facility] Comment on above: Order Comment: Viral transport [...] acid assay. Performed By: #### I CRESP ####[facility] (DEFAULT)[address] [place] [address], [place] [address] Influenza A - Pcr Not detected Normal Not Detected [facility] Comment on above: [...] acid assay. Performed By: #### I CRESP ####[facility] (DEFAULT)[address] [place] [address], [place] [address] Influenza B - Pcr Not detected Normal Not Detected [facility] Comment on above: [...] acid assay. Performed By: #### I CRESP ####[facility] (DEFAULT)[address] [place] [address], [place] [address] Metapneumovirus - Pcr Not detected Normal Not Detected [facility] Comment on above: Order Comment: Viral transport [...] acid assay. Performed By: #### I CRESP ####[facility] (DEFAULT)[address] [place] [address], [place] [address] Mycoplasma Pneumoniae Not detected Normal Not Detected [facility] Comment on above: Order Comment: Viral transport [...] acid assay. Performed By: #### I CRESP ####[facility] (DEFAULT)[address] [place] [address], [place] [address] Parainfluenza 1 - Pcr Not detected Normal Not Detected [facility] Comment on above: Order Comment: Viral transport [...] acid assay. Performed By: #### I CRESP ####[facility] (DEFAULT)[address] [place] [address] Parainfluenza 2 - Pcr Not detected Normal Not Detected [facility] Comment on above: Order Comment: Viral transport [...] acid assay. Performed By: #### I CRESP ####[facility] (DEFAULT)[address] [place] [address], [place] [address] Parainfluenza 3 - Pcr Not detected Normal Not Detected [facility] Comment on above: Order Comment: Viral transport [...] acid assay. Performed By: #### I CRESP ####[facility] (DEFAULT)[address] [place] [address] Parainfluenza 4 - Pcr Not detected Normal Not Detected [facility] Comment on above: Order Comment: Viral transport [...] acid assay. Performed By: #### I CRESP ####[facility] (DEFAULT)[address] [place] [address], [place] [address] Rhinovirus/Enterovir us - PCR Not detected Normal Not Detected [facility] Comment on above: Order Comment: Viral transport [...] acid assay. Performed By: #### I CRESP ####[facility] (DEFAULT)[address] [place] [address] Rsv - Pcr Not detected Normal Not Detected [facility] Comment on above: Order Comment: Viral transport [...] acid assay. Performed By: #### I CRESP ####[facility] (DEFAULT)[address] [place] [address] SARS-CoV-2 (COVID-19) RNA ESTELITA+probe Ql (Unsp spec) Not detected Normal NOT DETECTED [facility] Comment on above: Order Comment: Viral transport [...] acid assay. Performed By: #### I CRESP ####[facility] (DEFAULT)[address] [place] [address] Portable XR Chest [facility] Radiology Study observation (narrative) [facility] Respiratory virus DNA+RNA NA A+probe Nom (Unsp spec)Ordered By: Dayami Harris on 08-28-2023 Adenovirus DNA ESTELITA+probe Nom (Unsp spec) Not detected Not Detected [facility] B. parapertussis DNA ESTELITA+probe Ql (Unsp spec) Not detected Not Detected [facility] B. pertussis DNA ESTELITA+probe Ql (Unsp spec) Not detected Not Detected [facility] C. pneumoniae DNA ESTELITA+probe Ql (Unsp spec) Not detected Not Detected [facility] FLUAV RNA ESTELITA+probe Ql (Unsp spec) Not detected Not Detected [facility] FLUBV RNA ESTELITA+probe Ql (Unsp spec) Not detected Not Detected [facility] HCoV 229E RNA ESTELITA+non-probe Ql (Nph) Not detected Not Detected [facility] HCoV HKU1 RNA ESTELITA+non-probe Ql (Nph) Not detected Not Detected [facility] HCoV NL63 RNA ESTELITA+non-probe Ql (Nph) Not detected Not Detected [facility] HCoV OC43 RNA ESTELITA+non-probe Ql (Nph) Not detected Not Detected [facility] hMPV A RNA ESTELITA+probe Ql (Unsp spec) Not detected Not Detected [facility] Interpretation and review of laboratory results Normal [facility] M. pneumoniae DNA ESTELITA+probe Ql (Unsp spec) Not detected Not Detected [facility] Parainfluenza virus 1 RNA ESTELITA+probe Ql (Unsp spec) Not detected Not Detected [facility] Parainfluenza virus 2 RNA ESTELITA+probe Ql (Unsp spec) Not detected Not Detected [facility] Parainfluenza virus 3 RNA ESTELITA+probe Ql (Unsp spec) Not detected Not Detected [facility] Parainfluenza virus 4 RNA ESTELITA+probe Ql (Unsp spec) Not detected Not Detected [facility] Rhinovirus+Enterovir us RNA ESTELITA+probe Ql (Unsp spec) Not detected Not Detected [facility] RSV RNA ESTELITA+probe Ql (Unsp spec) Not detected Not Detected [facility] SARS-CoV-2 (COVID-19) RNA ESTELITA+probe Ql (Unsp spec) Not detected NOT DETECTED [facility] ALBUMINon 04-28-2023 Albumin [Mass/Vol] 4.0 g/dL Normal 3.4-5.0 [facility] Comment on above: Performed By: #### C MP #### [facility] [address] [place] [address] Dr. Dwight Waters ALKALINE PHOSPHAon ALP [Catalytic activity/Vol] 106 U/L Normal 46-116 [facility] Comment on above: Performed By: #### F [id number] #### [facility] [address] [place] [address] Dr. Dwight Waters BILIRUBIN CONJUGATED (DIRECT )on 04-28-2023 BILI, CONJUGATED 0.3 mg/dL Critically high 0.0-0.2 [facility] Comment on above: Performed By: #### C MP #### [facility] [address] [place] [address] Dr. Dwight Waters BILIRUBIN TOTALon 04-28-2023 Bilirubin [Mass/Vol] 1.4 mg/dL Critically high 0.2-1.0 [facility] Comment on above: Performed By: #### C MP #### [facility] [address] [place] [address] Dr. Dwight Waters BUNon 04-28-2023 Urea nitrogen [Mass/Vol] 12.0 mg/dL Normal 7.0-18.0 [facility] Comment on above: Performed By: #### U RTPCR #### [facility] [address] [place] [address] Dr. Dwight Waters CALCIUMon 04-28-2023 Calcium [Mass/Vol] 9.3 mg/dL Normal 8.5-10.1 [facility] Comment on above: Performed By: #### U RTPCR #### [facility] [address] [place] [address] Dr. Dwight Waters CBC AUTO DIFFon 04-28-2023 BASO # 0.1 103/ul Normal 0.0-0.1 [facility] Comment on above: Performed By: #### C BC #### [facility] [address] [place] [address] Dr. Dwight Waters Basophils/100 WBC (Bld) 0.9 % Normal 0.2-2.0 [facility] Comment on above: Performed By: #### C BC #### [facility] [address] [place] [address] Dr. Dwight Waters EO # 0.2 103/ul Normal 0.0-0.7 [facility] Comment on above: Performed By: #### C BC #### [facility] [address] [place] [address] Dr. Dwight Waters Eosinophils/100 WBC (Bld) 3.8 % Normal 0.9-7.0 [facility] Comment on above: Performed By: #### C BC #### [facility] [address] [place] [address] Dr. Dwight Waters Erythrocyte distribution width (RBC) [Ratio] 12.5 % Normal 11.0-15.0 [facility] Comment on above: Performed By: #### C BC #### [facility] [address] [place] [address] Dr. Dwight Waters Hematocrit (Bld) [Volume fraction] 49.8 % Normal 42.0-54.0 [facility] Comment on above: Performed By: #### C BC #### [facility] [address] [place] [address] Dr. Dwight Waters Hemoglobin (Bld) [Mass/Vol] 16.4 g/dL Normal 14.0-18.0 [facility] Comment on above: Performed By: #### C BC #### [facility] [address] [place] [address] Dr. Dwight Waters IG # 0.01 10e3/ul Normal 0.00-0.03 [facility] Comment on above: Performed By: #### C BC #### [facility] [address] [place] [address] Dr. Dwight Waters IG % 0.2 % Normal 0.0-0.5 [facility] Comment on above: Performed By: #### C BC #### [facility] [address] [place] [address] Dr. Dwight Waters LYMPH # 2.1 103/ul Normal 1.2-3.8 [facility] Comment on above: Performed By: #### C BC #### [facility] [address] [place] [address] Dr. Dwight Waters Lymphocytes/100 WBC (Bld) 39.1 % Normal 20.5-60.0 [facility] Comment on above: Performed By: #### C BC #### [facility] [address] [place] [address] Dr. Dwight Waters MANUAL DIFF REQ NO Normal [facility] Comment on above: Performed By: #### C BC #### [facility] [address] [place] [address] Dr. Dwight Waters MCH (RBC) [Entitic mass] 28.6 pg Normal 25.9-34.0 [facility] Comment on above: Performed By: #### C BC #### [facility] [address] [place] [address] Dr. Dwight Waters MCHC (RBC) [Mass/Vol] 32.9 g/dL Normal 29.9-35.2 [facility] Comment on above: Performed By: #### C BC #### [facility] [address] [place] [address] Dr. Dwight Waters MCV (RBC) [Entitic vol] 86.9 fL Normal 80.0-94.0 [facility] Comment on above: Performed By: #### C BC #### [facility] [address] [place] [address] Dr. Dwight Waters MONO # 0.6 103/ul Normal 0.3-0.8 [facility] Comment on above: Performed By: #### C BC #### [facility] [address] [place] [address] Dr. Dwight Waters Monocytes/100 WBC (Bld) 10.6 % Normal 1.7-12.0 [facility] Comment on above: Performed By: #### C BC #### [facility] [address] [place] [address] Dr. Dwight Waters NEUT # 2.5 103/ul Normal 1.4-6.5 [facility] Comment on above: Performed By: #### C BC #### [facility] [address] [place] [address] Dr. Dwight Waters Neutrophils/100 WBC (Bld) 45.4 % Normal 43.0-75.0 [facility] Comment on above: Performed By: #### C BC #### [facility] [address] [place] [address] Dr. Dwight Waters Platelet mean volume (Bld) [Entitic vol] 9.3 fL Critically low 9.5-13.5 [facility] Comment on above: Performed By: #### C BC #### [facility] [address] [place] [address] Dr. Dwight Waters PLT 248 103/ul Normal 150-450 [facility] Comment on above: Performed By: #### C BC #### [facility] [address] [place] [address] Dr. Dwight Waters RBC 5.73 106/ul Normal 4.70-6.10 [facility] Comment on above: Performed By: #### C BC #### [facility] [address] [place] [address] Dr. Dwight Waters WBC 5.5 103/ul Normal 4.0-11.0 [facility] Comment on above: Performed By: #### C BC #### [facility] [address] [place] [address] Dr. Dwight Waters CHLORIDEon 04-28-2023 Chloride [Moles/Vol] 107 mmol/L Normal 98-107 [facility] Comment on above: Performed By: #### U RTPCR #### [facility] [address] [place] [address] Dr. Dwight Waters CO2on 04-28-2023 CO2 [Moles/Vol] 28.9 mmol/L Normal 21.0-32.0 [facility] Comment on above: Performed By: #### U RTPCR #### [facility] [address] [place] [address] Dr. Dwight Waters CREATININEon 04-28-2023 Creatinine [Mass/Vol] 1.17 mg/dL Normal 0.70-1.30 [facility] Comment on above: Performed By: #### U RTPCR #### [facility] [address] [address] [address] Dwight Waters EGFR-AF BRAZILIAN >60 Normal >=60 [facility] Comment on above: Performed By: #### U RTPCR #### [facility] [address] [address] [address] Dwight Waters EGFR-NON AF BRAZILIAN >60 Normal >=60 [facility] Comment on above: Performed By: #### U RTPCR #### [facility] [address] [address] [address] Dwight Waters GGTon 04-28-2023 Gamma glutamyl transferase [Catalytic activity/Vol] 27 U/L Normal 15-85 [facility] Comment on above: Performed By: #### U RTPCR #### [facility] [address] [place] [address] Dr. Dwight Waters GLUCOSE BLOODon 04-28-2023 Glucose [Mass/Vol] 110 mg/dL Critically high 74-106 [facility] Comment on above: Performed By: #### U RTPCR #### [facility] [address] [address] [address] Dwight Waters MAGNESIUMon 04-28-2023 Magnesium [Mass/Vol] 1.7 mg/dL Critically low 1.8-2.4 [facility] Comment on above: Performed By: #### U RTPCR #### [facility] [address] [place] [address] Dr. Dwight Waters NAon 04-28-2023 Sodium [Moles/Vol] 144 mmol/L Normal 136-145 [facility] Comment on above: Performed By: #### U RTPCR #### [facility] [address] [address] [address] Dwight Waters PHOSPHORUSon 04-28-2023 Phosphate [Mass/Vol] 3.2 mg/dL Normal 2.6-4.7 [facility] Comment on above: Performed By: #### U RTPCR #### [facility] [address] [place] [address] Dr. Dwight Waters POTASSIUMon 04-28-2023 Potassium [Moles/Vol] 4.0 mmol/L Normal 3.5-5.1 [facility] Comment on above: Performed By: #### U RTPCR #### [facility] [address] [place] [address] Dr. Dwight OLVERAOTon 04-28-2023 AST [Catalytic activity/Vol] 25 U/L Normal 15-37 [facility] Comment on above: Performed By: #### C MP #### [facility] [address] [place] [address] Dr. Dwight Waters SGPTon 04-28-2023 ALT [Catalytic activity/Vol] 40 U/L Normal 16-63 [facility] Comment on above: Performed By: #### C MP #### [facility] [address] [place] [address] Dr. Dwight Waters URINE T PROTEIN CREAT RATIOo n 04-28-2023 Protein (U) [Mass/Vol] 10.1 mg/dL Normal <=12.0 [facility] Comment on above: Performed By: #### U RTPCR #### [facility] [address] [place] [address] Dr. Dwight Waters UR PROT CREAT RAT 0.14 Normal [facility] Comment on above: Performed By: #### U RTPCR #### [facility] [address] [place] [address] Dr. Dwight Waters URINE CREAT 74.40 mg/dL Normal 20.00-300.00 [facility] Comment on above: Performed By: #### U RTPCR #### [facility] [address] [place] [address] Dr. Dwight Waters BK VIRUS PCR QUANTon 023 BKV DNA QUANT PCR PLASMA Negative Normal Negative [facility] Comment on above: Result Comment: No B K DNA detected. . The linear range of the assay is 22 - 100,000,000 IU/mL. Performed By: #### B KVIRUS #### [facility] [address] [place] [address] Dr. Dwight Waters Log10 BKV DNA Plasma Normal [facility] Comment on above: Performed By: #### B KVIRUS #### [facility] [address] [place] [address] Dr. Dwight Waters FK506 (TACROLIMUS) WHOLE BLO ODon 03-04-2023 Tacrolimus (FK506), Blood 5.9 ng/mL Normal 2.0-20.0 [facility] Comment on above: Result Comment: Trou gh (immediately following transplant) 15.0 . Trough (steady state, 2 weeks or more after transplant): 3.0 - 8.0 . Performed by LC-MS/MS technology. Performed By: #### C MP #### [facility] [address] [place] [address] Dr. Dwight Waters ALBUMINon 03-02-2023 Albumin [Mass/Vol] 3.9 g/dL Normal 3.4-5.0 [facility] Comment on above: Performed By: #### U RTPCR #### [facility] [address] [place] [address] Dr. Dwight Waters ALKALINE PHOSPHAon ALP [Catalytic activity/Vol] 105 U/L Normal 46-116 [facility] Comment on above: Performed By: #### U RTPCR #### [facility] [address] [place] [address] Dr. Dwight Waters BILIRUBIN CONJUGATED (DIRECT )on 03-02-2023 BILI, CONJUGATED 0.2 mg/dL Normal 0.0-0.2 [facility] Comment on above: Performed By: #### U RTPCR #### [facility] [address] [place] [address] Dr. Dwight Waters BILIRUBIN TOTALon 03-02-2023 Bilirubin [Mass/Vol] 0.9 mg/dL Normal 0.2-1.0 [facility] Comment on above: Performed By: #### U RTPCR #### [facility] [address] [place] [address] Dr. Dwight Waters CBC AUTO DIFFon 03-02-2023 BASO # 0.1 103/ul Normal 0.0-0.1 [facility] Comment on above: Performed By: #### C BC #### [facility] [address] [place] [address] Dr. Dwight Waters Basophils/100 WBC (Bld) 0.9 % Normal 0.2-2.0 [facility] Comment on above: Performed By: #### C BC #### [facility] [address] [place] [address] Dr. Dwight Waters EO # 0.2 103/ul Normal 0.0-0.7 [facility] Comment on above: Performed By: #### C BC #### [facility] [address] [place] [address] Dr. Dwihgt Waters Eosinophils/100 WBC (Bld) 3.5 % Normal 0.9-7.0 [facility] Comment on above: Performed By: #### C BC #### [facility] [address] [place] [address] Dr. Dwight Waters Erythrocyte distribution width (RBC) [Ratio] 12.7 % Normal 11.0-15.0 [facility] Comment on above: Performed By: #### C BC #### [facility] [address] [place] [address] Dr. Dwight Waters Hematocrit (Bld) [Volume fraction] 48.2 % Normal 42.0-54.0 [facility] Comment on above: Performed By: #### C BC #### [facility] [address] [place] [address] Dr. Dwight Waters Hemoglobin (Bld) [Mass/Vol] 15.9 g/dL Normal 14.0-18.0 [facility] Comment on above: Performed By: #### C BC #### [facility] [address] [place] [address] Dr. Dwight Waters IG # 0.01 10e3/ul Normal 0.00-0.03 [facility] Comment on above: Performed By: #### C BC #### [facility] [address] [place] [address] Dr. Dwight Waters IG % 0.2 % Normal 0.0-0.5 [facility] Comment on above: Performed By: #### C BC #### [facility] [address] [place] [address] Dr. Dwight Waters LYMPH # 2.1 103/ul Normal 1.2-3.8 [facility] Comment on above: Performed By: #### C BC #### [facility] [address] [place] [address] Dr. Dwight Waters Lymphocytes/100 WBC (Bld) 37.4 % Normal 20.5-60.0 [facility] Comment on above: Performed By: #### C BC #### [facility] [address] [place] [address] Dr. Dwight Waters MANUAL DIFF REQ NO Normal [facility] Comment on above: Performed By: #### C BC #### [facility] [address] [place] [address] Dr. Dwight Waters MCH (RBC) [Entitic mass] 28.3 pg Normal 25.9-34.0 [facility] Comment on above: Performed By: #### C BC #### [facility] [address] [place] [address] Dr. Dwight Waters MCHC (RBC) [Mass/Vol] 33.0 g/dL Normal 29.9-35.2 [facility] Comment on above: Performed By: #### C BC #### [facility] [address] [place] [address] Dr. Dwight Waters MCV (RBC) [Entitic vol] 85.8 fL Normal 80.0-94.0 [facility] Comment on above: Performed By: #### C BC #### [facility] [address] [place] [address] Dr. Dwight Waters MONO # 0.6 103/ul Normal 0.3-0.8 [facility] Comment on above: Performed By: #### C BC #### [facility] [address] [place] [address] Dr. Dwight Waters Monocytes/100 WBC (Bld) 10.2 % Normal 1.7-12.0 [facility] Comment on above: Performed By: #### C BC #### [facility] [address] [place] [address] Dr. Dwight Waters NEUT # 2.7 103/ul Normal 1.4-6.5 [facility] Comment on above: Performed By: #### C BC #### [facility] [address] [place] [address] Dr. Dwight Waters Neutrophils/100 WBC (Bld) 47.8 % Normal 43.0-75.0 [facility] Comment on above: Performed By: #### C BC #### [facility] [address] [place] [address] Dr. Dwight Waters Platelet mean volume (Bld) [Entitic vol] 9.3 fL Critically low 9.5-13.5 [facility] Comment on above: Performed By: #### C BC #### [facility] [address] [place] [address] Dr. Dwight Waters PLT 241 103/ul Normal 150-450 [facility] Comment on above: Performed By: #### C BC #### [facility] [address] [place] [address] Dr. Dwight Waters RBC 5.62 106/ul Normal 4.70-6.10 [facility] Comment on above: Performed By: #### C BC #### [facility] [address] [place] [address] Dr. Dwight Waters WBC 5.7 103/ul Normal 4.0-11.0 [facility] Comment on above: Performed By: #### C BC #### [facility] [address] [place] [address] Dr. Dwight Waters GGTon 03-02-2023 Gamma glutamyl transferase [Catalytic activity/Vol] 25 U/L Normal 15-85 [facility] Comment on above: Performed By: #### U RTPCR #### [facility] [address] [place] [address] Dr. Dwight Waters MAGNESIUMon 03-02-2023 Magnesium [Mass/Vol] 1.6 mg/dL Critically low 1.8-2.4 [facility] Comment on above: Performed By: #### U RTPCR #### [facility] [address] [place] [address] Dr. Dwight Waters PHOSPHORUSon 03-02-2023 Phosphate [Mass/Vol] 3.6 mg/dL Normal 2.6-4.7 [facility] Comment on above: Performed By: #### U RTPCR #### [facility] [address] [place] [address] Dr. Dwight Waters PROF CHEM 8 (BAS METB)on Anion gap [Moles/Vol] 9.4 mmol/L Normal [facility] Comment on above: Performed By: #### U RTPCR #### [facility] [address] [place] [address] Dr. Dwight Waters Calcium [Mass/Vol] 9.3 mg/dL Normal 8.5-10.1 [facility] Comment on above: Performed By: #### U RTPCR #### [facility] [address] [place] [address] Dr. Dwight Waters Chloride [Moles/Vol] 108 mmol/L Critically high 98-107 [facility] Comment on above: Performed By: #### U RTPCR #### [facility] [address] [place] [address] Dr. Dwight Waters CO2 [Moles/Vol] 27.2 mmol/L Normal 21.0-32.0 [facility] Comment on above: Performed By: #### U RTPCR #### [facility] [address] [place] [address] Dr. Dwight Waters Creatinine [Mass/Vol] 1.12 mg/dL Normal 0.70-1.30 [facility] Comment on above: Performed By: #### U RTPCR #### [facility] [address] [place] [address] Dr. Dwight Waters EGFR-AF BRAZILIAN >60 Normal >=60 [facility] Comment on above: Performed By: #### U RTPCR #### [facility] [address] [place] [address] Dr. Dwight Waters EGFR-NON AF BRAZILIAN >60 Normal >=60 [facility] Comment on above: Performed By: #### U RTPCR #### [facility] [address] [place] [address] Dr. Dwight Waters Glucose [Mass/Vol] 113 mg/dL Critically high 74-106 [facility] Comment on above: Performed By: #### U RTPCR #### [facility] [address] [place] [address] Dr. Dwight Waters Potassium [Moles/Vol] 3.6 mmol/L Normal 3.5-5.1 [facility] Comment on above: Performed By: #### U RTPCR #### [facility] [address] [place] [address] Dr. Dwight Waters Sodium [Moles/Vol] 141 mmol/L Normal 136-145 [facility] Comment on above: Performed By: #### U RTPCR #### [facility] [address] [place] [address] Dr. Dwight Waters Urea nitrogen [Mass/Vol] 14.0 mg/dL Normal 7.0-18.0 [facility] Comment on above: Performed By: #### U RTPCR #### [facility] [address] [place] [address] Dr. Dwight Waters Urea nitrogen/Creatinine [Mass ratio] 12.5 mg/mg Normal [facility] Comment on above: Performed By: #### U RTPCR #### [facility] [address] [place] [address] Dr. Dwight Waters SGOTon 03-02-2023 AST [Catalytic activity/Vol] 20 U/L Normal 15-37 [facility] Comment on above: Performed By: #### U RTPCR #### [facility] [address] [place] [address] Dr. Dwight Waters SGPTon 03-02-2023 ALT [Catalytic activity/Vol] 30 U/L Normal 16-63 [facility] Comment on above: Performed By: #### U RTPCR #### [facility] [address] [place] [address] Dr. Dwight Waters URINE T PROTEIN CREAT RATIOo n 03-02-2023 Protein (U) [Mass/Vol] 10.3 mg/dL Normal <=12.0 [facility] Comment on above: Performed By: #### U RTPCR #### [facility] [address] [place] [address] Dr. Dwight Waters UR PROT CREAT RAT 0.15 Normal [facility] Comment on above: Performed By: #### U RTPCR #### [facility] [address] [place] [address] Dr. Dwight Waters URINE CREAT 68.96 mg/dL Normal 20.00-300.00 [facility] Comment on above: Performed By: #### U RTPCR #### [facility] [address] [place] [address] Dr. Dwight Waters BK VIRUS PCR QUANTon 023 BKV DNA QUANT PCR PLASMA Negative Normal Negative [facility] Comment on above: Result Comment: No B K DNA detected. . The linear range of the assay is 22 - 100,000,000 IU/mL. Performed By: #### C MP #### [facility] [address] [place] [address] Dr. Dwight Waters Log10 BKV DNA Plasma Normal [facility] Comment on above: Performed By: #### C MP #### [facility] [address] [place] [address] Dr. Dwight Waters FK506 (TACROLIMUS) WHOLE BLO ODon 12-31-2022 Tacrolimus (FK506), Blood 5.6 ng/mL Normal 2.0-20.0 [facility] Comment on above: Result Comment: Trou gh (immediately following transplant) 15.0 . Trough (steady state, 2 weeks or more after transplant): 3.0 - 8.0 . Performed by LC-MS/MS technology. Performed By: #### C MP #### [facility] [address] [place] [address] Dr. Dwight Waters ALKALINE PHOSPHAon ALP [Catalytic activity/Vol] 96 U/L Normal 46-116 [facility] Comment on above: Performed By: #### C BC #### [facility] [address] [place] [address] Dr. Dwight Waters BILIRUBIN CONJUGATED (DIRECT )on 12-29-2022 BILI, CONJUGATED 0.3 mg/dL Critically high 0.0-0.2 [facility] Comment on above: Performed By: #### C BC #### [facility] [address] [place] [address] Dr. Dwight Waters BILIRUBIN TOTALon 12-29-2022 Bilirubin [Mass/Vol] 1.1 mg/dL Critically high 0.2-1.0 [facility] Comment on above: Performed By: #### C BC #### [facility] [address] [place] [address] Dr. Dwight Waters CBC AUTO DIFFon 12-29-2022 BASO # 0.1 103/ul Normal 0.0-0.1 [facility] Comment on above: Performed By: #### C MP #### [facility] [address] [place] [address] Dr. Dwight Waters Basophils/100 WBC (Bld) 0.8 % Normal 0.2-2.0 [facility] Comment on above: Performed By: #### C MP #### [facility] [address] [place] [address] Dr. Dwight Waters EO # 0.2 103/ul Normal 0.0-0.7 [facility] Comment on above: Performed By: #### C MP #### [facility] [address] [place] [address] Dr. Dwight Waters Eosinophils/100 WBC (Bld) 3.0 % Normal 0.9-7.0 [facility] Comment on above: Performed By: #### C MP #### [facility] [address] [place] [address] Dr. Dwight Waters Erythrocyte distribution width (RBC) [Ratio] 12.9 % Normal 11.0-15.0 [facility] Comment on above: Performed By: #### C MP #### [facility] [address] [place] [address] Dr. Dwight Waters Hematocrit (Bld) [Volume fraction] 46.9 % Normal 42.0-54.0 [facility] Comment on above: Performed By: #### C MP #### [facility] [address] [place] [address] Dr. Dwight Waters Hemoglobin (Bld) [Mass/Vol] 16.1 g/dL Normal 14.0-18.0 [facility] Comment on above: Performed By: #### C MP #### [facility] [address] [place] [address] Dr. Dwight Waters IG # 0.01 10e3/ul Normal 0.00-0.03 [facility] Comment on above: Performed By: #### C MP #### [facility] [address] [place] [address] Dr. Dwight Waters IG % 0.2 % Normal 0.0-0.5 [facility] Comment on above: Performed By: #### C MP #### [facility] [address] [place] [address] Dr. Dwight Waters LYMPH # 1.8 103/ul Normal 1.2-3.8 [facility] Comment on above: Performed By: #### C MP #### [facility] [address] [place] [address] Dr. Dwight Waters Lymphocytes/100 WBC (Bld) 27.9 % Normal 20.5-60.0 [facility] Comment on above: Performed By: #### C MP #### [facility] [address] [place] [address] Dr. Dwight Waters MANUAL DIFF REQ NO Normal [facility] Comment on above: Performed By: #### C MP #### [facility] [address] [place] [address] Dr. Dwight Waters MCH (RBC) [Entitic mass] 28.5 pg Normal 25.9-34.0 [facility] Comment on above: Performed By: #### C MP #### [facility] [address] [place] [address] Dr. Dwight Waters MCHC (RBC) [Mass/Vol] 34.3 g/dL Normal 29.9-35.2 [facility] Comment on above: Performed By: #### C MP #### [facility] [address] [place] [address] Dr. Dwight Waters MCV (RBC) [Entitic vol] 83.2 fL Normal 80.0-94.0 [facility] Comment on above: Performed By: #### C MP #### [facility] [address] [address] [address] Dwight Waters MONO # 0.5 103/ul Normal 0.3-0.8 [facility] Comment on above: Performed By: #### C MP #### [facility] [address] [address] [address] Dwight Waters Monocytes/100 WBC (Bld) 8.1 % Normal 1.7-12.0 [facility] Comment on above: Performed By: #### C MP #### [facility] [address] [place] [address] Dr. Dwight Waters NEUT # 3.8 103/ul Normal 1.4-6.5 [facility] Comment on above: Performed By: #### C MP #### [facility] [address] [place] [address] Dr. Dwight Waters Neutrophils/100 WBC (Bld) 60.0 % Normal 43.0-75.0 [facility] Comment on above: Performed By: #### C MP #### [facility] [address] [place] [address] Dr. Dwight Waters Platelet mean volume (Bld) [Entitic vol] 9.2 fL Critically low 9.5-13.5 [facility] Comment on above: Performed By: #### C MP #### [facility] [address] [place] [address] Dr. Dwight Waters PLT 225 103/ul Normal 150-450 [facility] Comment on above: Performed By: #### C MP #### [facility] [address] [place] [address] Dr. Dwight Waters RBC 5.64 106/ul Normal 4.70-6.10 [facility] Comment on above: Performed By: #### C MP #### [facility] [address] [place] [address] Dr. Dwight Waters WBC 6.3 103/ul Normal 4.0-11.0 [facility] Comment on above: Performed By: #### C MP #### [facility] [address] [address] [address] Dwight Waters GGTon 12-29-2022 Gamma glutamyl transferase [Catalytic activity/Vol] 24 U/L Normal 15-85 [facility] Comment on above: Performed By: #### C MP #### [facility] [address] [place] [address] Dr. Dwight Waters LIPID PROFILEon 12-29-2022 CHOL-HDL RATIO NORM SEE BELOW Normal [facility] Comment on above: Result Comment: 3.3 - 4.4 LOW RISK 4.4 - 7.1 AVERAGE RISK 7.1 - 11.0 MODERATE RISK >11.0 HIGH RISK Performed By: #### U RTPCR #### [facility] [address] [place] [address] Dr. Dwight Waters Cholesterol [Mass/Vol] 87 mg/dL Normal <=200 [facility] Comment on above: Performed By: #### U RTPCR #### [facility] [address] [place] [address] Dr. Dwight Waters Cholesterol in HDL [Mass/Vol] 44 mg/dL Normal 40-60 [facility] Comment on above: Performed By: #### U RTPCR #### [facility] [address] [place] [address] Dr. Dwight Waters Cholesterol in LDL [Mass/Vol] 33.0 mg/dL Normal [facility] Comment on above: Performed By: #### U RTPCR #### [facility] [address] [place] [address] Dr. Dwight Waters Cholesterol.total/Ch olesterol in HDL [Mass ratio] 2.0 {ratio} Normal [facility] Comment on above: Performed By: #### U RTPCR #### [facility] [address] [place] [address] Dr. Dwight Waters HDL NORMAL > or = 60 mg/dl - LO W CARDIOVASCULAR RISK <40 mg/dl - HIGH CARDIOVASCULAR RISK Normal [facility] Comment on above: Performed By: #### U RTPCR #### [facility] [address] [place] [address] Dr. Dwight Waters LDL CALC NORMAL SEE BELOW Normal [facility] Comment on above: Result Comment: <100 mg/dl OPTIMAL 100 - 129 mg/dl NEAR OR ABOVE OPTIMAL 130 - 159 mg/dl BORDERLINE HIGH 160 - 189 mg/dl HIGH >190 mg/dl VERY HIGH Performed By: #### U RTPCR #### [facility] [address] [address] [address] Dwight Waters Triglyceride [Mass/Vol] 50 mg/dL Normal <=150 [facility] Comment on above: Performed By: #### U RTPCR #### [facility] [address] [address] [address] Dwight Waters VLDL CALC 10.0 mg/dL Normal [facility] Comment on above: Performed By: #### U RTPCR #### [facility] [address] [place] [address] Dr. Dwight Waters MAGNESIUMon 12-29-2022 Magnesium [Mass/Vol] 1.6 mg/dL Critically low 1.8-2.4 [facility] Comment on above: Performed By: #### C BC #### [facility] [address] [address] [address] Dwight Waters RENAL FUNCTION PANELon 12-29 Albumin [Mass/Vol] 3.9 g/dL Normal 3.4-5.0 [facility] Comment on above: Performed By: #### C BC #### [facility] [address] [place] [address] Dr. Dwight Waters Calcium [Mass/Vol] 9.2 mg/dL Normal 8.5-10.1 [facility] Comment on above: Performed By: #### C BC #### [facility] [address] [address] [address] Dwight Waters Chloride [Moles/Vol] 109 mmol/L Critically high 98-107 [facility] Comment on above: Performed By: #### C BC #### [facility] [address] [address] [address] Dwight Waters CO2 [Moles/Vol] 27.0 mmol/L Normal 21.0-32.0 [facility] Comment on above: Performed By: #### C BC #### [facility] [address] [address] [address] Dwight Waters Creatinine [Mass/Vol] 1.02 mg/dL Normal 0.70-1.30 [facility] Comment on above: Performed By: #### C BC #### [facility] [address] [address] [address] Dwight Waters EGFR-AF BRAZILIAN >60 Normal >=60 [facility] Comment on above: Performed By: #### C BC #### [facility] [address] [address] [address] Dwight Waters EGFR-NON AF BRAZILIAN >60 Normal >=60 [facility] Comment on above: Performed By: #### C BC #### [facility] [address] [place] [address] Dr. Dwight Waters Glucose [Mass/Vol] 117 mg/dL Critically high 74-106 [facility] Comment on above: Performed By: #### C BC #### [facility] [address] [place] [address] Dr. Dwight Waters Phosphate [Mass/Vol] 3.2 mg/dL Normal 2.6-4.7 [facility] Comment on above: Performed By: #### C BC #### [facility] [address] [place] [address] Dr. Dwight Waters Potassium [Moles/Vol] 4.1 mmol/L Normal 3.5-5.1 [facility] Comment on above: Performed By: #### C BC #### [facility] [address] [place] [address] Dr. Dwight Waters Sodium [Moles/Vol] 144 mmol/L Normal 136-145 [facility] Comment on above: Performed By: #### C BC #### [facility] [address] [place] [address] Dr. Dwight Waters Urea nitrogen [Mass/Vol] 13.0 mg/dL Normal 7.0-18.0 [facility] Comment on above: Performed By: #### C BC #### [facility] [address] [place] [address] Dr. Dwight Waters SGOTon 12-29-2022 AST [Catalytic activity/Vol] 21 U/L Normal 15-37 [facility] Comment on above: Performed By: #### C BC #### [facility] [address] [place] [address] Dr. Dwight Waters SGPTon 12-29-2022 ALT [Catalytic activity/Vol] 32 U/L Normal 16-63 [facility] Comment on above: Performed By: #### C BC #### [facility] [address] [place] [address] Dr. Dwight Waters URINE T PROTEIN CREAT RATIOo n 12-29-2022 Protein (U) [Mass/Vol] 14.3 mg/dL Critically high <=12.0 [facility] Comment on above: Performed By: #### U RTPCR #### [facility] [address] [place] [address] Dr. Dwight Waters UR PROT CREAT RAT 0.17 Normal [facility] Comment on above: Performed By: #### U RTPCR #### [facility] [address] [place] [address] Dr. Dwight Waters URINE CREAT 86.58 mg/dL Normal 20.00-300.00 [facility] Comment on above: Performed By: #### U RTPCR #### [facility] [address] [place] [address] Dr. Dwight Waters FK506 (TACROLIMUS) WHOLE BLO ODon 11-06-2022 Tacrolimus (FK506), Blood 4.9 ng/mL Normal 2.0-20.0 [facility] Comment on above: Result Comment: Trou gh (immediately following transplant) 15.0 . Trough (steady state, 2 weeks or more after transplant): 3.0 - 8.0 . Performed by LC-MS/MS technology. Performed By: #### U RTPCR #### [facility] [address] [place] [address] Dr. Dwight Waters ALKALINE PHOSPHAon ALP [Catalytic activity/Vol] 86 U/L Normal 46-116 [facility] Comment on above: Performed By: #### U RTPCR #### [facility] [address] [place] [address] Dr. Dwight Waters BILIRUBIN CONJUGATED (DIRECT )on 11-04-2022 BILI, CONJUGATED 0.2 mg/dL Normal 0.0-0.2 [facility] Comment on above: Performed By: #### U RTPCR #### [facility] [address] [place] [address] Dr. Dwight Waters BILIRUBIN TOTALon 11-04-2022 Bilirubin [Mass/Vol] 0.8 mg/dL Normal 0.2-1.0 [facility] Comment on above: Performed By: #### U RTPCR #### [facility] [address] [place] [address] Dr. Dwight Waters CBC AUTO DIFFon 11-04-2022 BASO # 0.1 103/ul Normal 0.0-0.1 [facility] Comment on above: Performed By: #### U RTPCR #### [facility] [address] [place] [address] Dr. Dwight Waters Basophils/100 WBC (Bld) 0.9 % Normal 0.2-2.0 [facility] Comment on above: Performed By: #### U RTPCR #### [facility] [address] [place] [address] Dr. Dwight Waters EO # 0.2 103/ul Normal 0.0-0.7 [facility] Comment on above: Performed By: #### U RTPCR #### [facility] [address] [place] [address] Dr. Dwight Waters Eosinophils/100 WBC (Bld) 3.7 % Normal 0.9-7.0 [facility] Comment on above: Performed By: #### U RTPCR #### [facility] [address] [place] [address] Dr. Dwight Waters Erythrocyte distribution width (RBC) [Ratio] 12.9 % Normal 11.0-15.0 [facility] Comment on above: Performed By: #### U RTPCR #### [facility] [address] [place] [address] Dr. Dwight Waters Hematocrit (Bld) [Volume fraction] 48.3 % Normal 42.0-54.0 [facility] Comment on above: Performed By: #### U RTPCR #### [facility] [address] [place] [address] Dr. Dwight Waters Hemoglobin (Bld) [Mass/Vol] 15.6 g/dL Normal 14.0-18.0 [facility] Comment on above: Performed By: #### U RTPCR #### [facility] [address] [place] [address] Dr. Dwight Waters IG # 0.01 10e3/ul Normal 0.00-0.03 [facility] Comment on above: Performed By: #### U RTPCR #### [facility] [address] [place] [address] Dr. Dwight Waters IG % 0.2 % Normal 0.0-0.5 [facility] Comment on above: Performed By: #### U RTPCR #### [facility] [address] [place] [address] Dr. Dwight Waters LYMPH # 1.9 103/ul Normal 1.2-3.8 [facility] Comment on above: Performed By: #### U RTPCR #### [facility] [address] [place] [address] Dr. Dwight Waters Lymphocytes/100 WBC (Bld) 33.0 % Normal 20.5-60.0 [facility] Comment on above: Performed By: #### U RTPCR #### [facility] [address] [place] [address] Dr. Dwight Waters MANUAL DIFF REQ NO Normal [facility] Comment on above: Performed By: #### U RTPCR #### [facility] [address] [place] [address] Dr. Dwight Waters MCH (RBC) [Entitic mass] 27.6 pg Normal 25.9-34.0 [facility] Comment on above: Performed By: #### U RTPCR #### [facility] [address] [place] [address] Dr. Dwight Waters MCHC (RBC) [Mass/Vol] 32.3 g/dL Normal 29.9-35.2 [facility] Comment on above: Performed By: #### U RTPCR #### [facility] [address] [place] [address] Dr. Dwight Waters MCV (RBC) [Entitic vol] 85.5 fL Normal 80.0-94.0 [facility] Comment on above: Performed By: #### U RTPCR #### [facility] [address] [place] [address] Dr. Dwight Waters MONO # 0.5 103/ul Normal 0.3-0.8 [facility] Comment on above: Performed By: #### U RTPCR #### [facility] [address] [place] [address] Dr. Dwight Waters Monocytes/100 WBC (Bld) 8.8 % Normal 1.7-12.0 [facility] Comment on above: Performed By: #### U RTPCR #### [facility] [address] [place] [address] Dr. Dwight Waters NEUT # 3.1 103/ul Normal 1.4-6.5 [facility] Comment on above: Performed By: #### U RTPCR #### [facility] [address] [place] [address] Dr. Dwight Waters Neutrophils/100 WBC (Bld) 53.4 % Normal 43.0-75.0 [facility] Comment on above: Performed By: #### U RTPCR #### [facility] [address] [place] [address] Dr. Dwight Waters Platelet mean volume (Bld) [Entitic vol] 9.2 fL Critically low 9.5-13.5 [facility] Comment on above: Performed By: #### U RTPCR #### [facility] [address] [place] [address] Dr. Dwight Waters PLT 255 103/ul Normal 150-450 [facility] Comment on above: Performed By: #### U RTPCR #### [facility] [address] [place] [address] Dr. Dwight Waters RBC 5.65 106/ul Normal 4.70-6.10 [facility] Comment on above: Performed By: #### U RTPCR #### [facility] [address] [place] [address] Dr. Dwight Waters WBC 5.7 103/ul Normal 4.0-11.0 [facility] Comment on above: Performed By: #### U RTPCR #### [facility] [address] [place] [address] Dr. Dwight Waters GGTon 11-04-2022 Gamma glutamyl transferase [Catalytic activity/Vol] 22 U/L Normal 15-85 [facility] Comment on above: Performed By: #### U RTPCR #### [facility] [address] [place] [address] Dr. Dwight Waters MAGNESIUMon 11-04-2022 Magnesium [Mass/Vol] 1.8 mg/dL Normal 1.8-2.4 [facility] Comment on above: Performed By: #### U RTPCR #### [facility] [address] [place] [address] Dr. Dwight Waters RENAL FUNCTION PANELon 11-04 Albumin [Mass/Vol] 3.8 g/dL Normal 3.4-5.0 [facility] Comment on above: Performed By: #### U RTPCR #### [facility] [address] [place] [address] Dr. Dwight Waters Calcium [Mass/Vol] 9.3 mg/dL Normal 8.5-10.1 [facility] Comment on above: Performed By: #### U RTPCR #### [facility] [address] [place] [address] Dr. Dwight Waters Chloride [Moles/Vol] 107 mmol/L Normal 98-107 [facility] Comment on above: Performed By: #### U RTPCR #### [facility] [address] [place] [address] Dr. Dwight Waters CO2 [Moles/Vol] 29.2 mmol/L Normal 21.0-32.0 [facility] Comment on above: Performed By: #### U RTPCR #### [facility] [address] [address] [address] Dwight Waters Creatinine [Mass/Vol] 1.07 mg/dL Normal 0.70-1.30 [facility] Comment on above: Performed By: #### U RTPCR #### [facility] [address] [place] [address] Dr. Dwight Waters EGFR-AF BRAZILIAN >60 Normal >=60 [facility] Comment on above: Performed By: #### U RTPCR #### [facility] [address] [place] [address] Dr. Dwight Waters EGFR-NON AF BRAZILIAN >60 Normal >=60 [facility] Comment on above: Performed By: #### U RTPCR #### [facility] [address] [place] [address] Dr. Dwight Waters Glucose [Mass/Vol] 106 mg/dL Normal 74-106 [facility] Comment on above: Performed By: #### U RTPCR #### [facility] [address] [place] [address] Dr. Dwight Waters Phosphate [Mass/Vol] 2.8 mg/dL Normal 2.6-4.7 [facility] Comment on above: Performed By: #### U RTPCR #### [facility] [address] [place] [address] Dr. Dwight Waters Potassium [Moles/Vol] 4.1 mmol/L Normal 3.5-5.1 [facility] Comment on above: Performed By: #### U RTPCR #### [facility] [address] [place] [address] Dr. Dwight Waters Sodium [Moles/Vol] 143 mmol/L Normal 136-145 [facility] Comment on above: Performed By: #### U RTPCR #### [facility] [address] [place] [address] Dr. Dwight Waters Urea nitrogen [Mass/Vol] 12.0 mg/dL Normal 7.0-18.0 [facility] Comment on above: Performed By: #### U RTPCR #### [facility] [address] [place] [address] Dr. Dwight OLVERAWillistonn 11-04-2022 AST [Catalytic activity/Vol] 19 U/L Normal 15-37 [facility] Comment on above: Performed By: #### U RTPCR #### [facility] [address] [place] [address] Dr. Dwight Waters SGPTon 11-04-2022 ALT [Catalytic activity/Vol] 28 U/L Normal 16-63 [facility] Comment on above: Performed By: #### U RTPCR #### [facility] [address] [place] [address] Dr. Dwight Waters URINE T PROTEIN CREAT RATIOo n 11-04-2022 Protein (U) [Mass/Vol] 10.7 mg/dL Normal <=12.0 [facility] Comment on above: Performed By: #### U RTPCR #### [facility] [address] [place] [address] Dr. Dwight Waters UR PROT CREAT RAT 0.13 Normal [facility] Comment on above: Performed By: #### U RTPCR #### [facility] [address] [place] [address] Dr. Dwight Waters URINE CREAT 84.50 mg/dL Normal 20.00-300.00 [facility] Comment on above: Performed By: #### U RTPCR #### [facility] [address] [place] [address] Dr. Dwight Waters FK506 (TACROLIMUS) WHOLE BLO ODon 09-18-2022 Tacrolimus (FK506), Blood 4.6 ng/mL Normal 2.0-20.0 [facility] Comment on above: Result Comment: Trou gh (immediately following transplant) 15.0 . Trough (steady state, 2 weeks or more after transplant): 3.0 - 8.0 . Performed by LC-MS/MS technology. Performed By: #### U RTPCR #### [facility] [address] [place] [address] Dr. Dwight Waters BK VIRUS PCR QUANTon 022 BKV DNA QUANT PCR PLASMA Negative Normal Negative [facility] Comment on above: Result Comment: No B K DNA detected. . The linear range of the assay is 22 - 100,000,000 IU/mL. Performed By: #### U RTPCR #### [facility] [address] [place] [address] Dr. Dwight Waters Log10 BKV DNA Plasma Normal [facility] Comment on above: Performed By: #### U RTPCR #### [facility] [address] [place] [address] Dr. Dwight Waters ALKALINE PHOSPHAon ALP [Catalytic activity/Vol] 92 U/L Normal 46-116 [facility] Comment on above: Performed By: #### U RTPCR #### [facility] [address] [place] [address] Dr. Dwight Waters BILIRUBIN CONJUGATED (DIRECT )on 09-15-2022 BILI, CONJUGATED 0.3 mg/dL Critically high 0.0-0.2 [facility] Comment on above: Performed By: #### U RTPCR #### [facility] [address] [place] [address] Dr. Dwight Waters BILIRUBIN TOTALon 09-15-2022 Bilirubin [Mass/Vol] 1.1 mg/dL Critically high 0.2-1.0 [facility] Comment on above: Performed By: #### U RTPCR #### [facility] [address] [place] [address] Dr. Dwight Waters CBC AUTO DIFFon 09-15-2022 BASO # 0.1 103/ul Normal 0.0-0.1 [facility] Comment on above: Performed By: #### C BC #### [facility] [address] [place] [address] Dr. Dwight Waters Basophils/100 WBC (Bld) 0.8 % Normal 0.2-2.0 [facility] Comment on above: Performed By: #### C BC #### [facility] [address] [place] [address] Dr. Dwight Waters EO # 0.2 103/ul Normal 0.0-0.7 [facility] Comment on above: Performed By: #### C BC #### [facility] [address] [place] [address] Dr. Dwight Waters Eosinophils/100 WBC (Bld) 3.5 % Normal 0.9-7.0 [facility] Comment on above: Performed By: #### C BC #### [facility] [address] [place] [address] Dr. Dwight Waters Erythrocyte distribution width (RBC) [Ratio] 13.0 % Normal 11.0-15.0 [facility] Comment on above: Performed By: #### C BC #### [facility] [address] [place] [address] Dr. Dwight Waters Hematocrit (Bld) [Volume fraction] 50.0 % Normal 42.0-54.0 [facility] Comment on above: Performed By: #### C BC #### [facility] [address] [place] [address] Dr. Dwight Waters Hemoglobin (Bld) [Mass/Vol] 16.0 g/dL Normal 14.0-18.0 [facility] Comment on above: Performed By: #### C BC #### [facility] [address] [place] [address] Dr. Dwight Waters IG # 0.02 10e3/ul Normal 0.00-0.03 [facility] Comment on above: Performed By: #### C BC #### [facility] [address] [place] [address] Dr. Dwight Waters IG % 0.3 % Normal 0.0-0.5 [facility] Comment on above: Performed By: #### C BC #### [facility] [address] [place] [address] Dr. Dwight Waters LYMPH # 1.8 103/ul Normal 1.2-3.8 [facility] Comment on above: Performed By: #### C BC #### [facility] [address] [place] [address] Dr. Dwight Waters Lymphocytes/100 WBC (Bld) 26.5 % Normal 20.5-60.0 [facility] Comment on above: Performed By: #### C BC #### [facility] [address] [place] [address] Dr. Dwight Waters MANUAL DIFF REQ NO Normal [facility] Comment on above: Performed By: #### C BC #### [facility] [address] [place] [address] Dr. Dwight Waters MCH (RBC) [Entitic mass] 28.1 pg Normal 25.9-34.0 [facility] Comment on above: Performed By: #### C BC #### [facility] [address] [place] [address] Dr. Dwight Waters MCHC (RBC) [Mass/Vol] 32.0 g/dL Normal 29.9-35.2 [facility] Comment on above: Performed By: #### C BC #### [facility] [address] [place] [address] Dr. Dwight Waters MCV (RBC) [Entitic vol] 87.9 fL Normal 80.0-94.0 [facility] Comment on above: Performed By: #### C BC #### [facility] [address] [place] [address] Dr. Dwight Waters MONO # 0.5 103/ul Normal 0.3-0.8 [facility] Comment on above: Performed By: #### C BC #### [facility] [address] [place] [address] Dr. Dwight Waters Monocytes/100 WBC (Bld) 8.1 % Normal 1.7-12.0 [facility] Comment on above: Performed By: #### C BC #### [facility] [address] [place] [address] Dr. Dwight Waters NEUT # 4.0 103/ul Normal 1.4-6.5 [facility] Comment on above: Performed By: #### C BC #### [facility] [address] [place] [address] Dr. Dwight Waters Neutrophils/100 WBC (Bld) 60.8 % Normal 43.0-75.0 [facility] Comment on above: Performed By: #### C BC #### [facility] [address] [place] [address] Dr. Dwgiht Waters Platelet mean volume (Bld) [Entitic vol] 9.4 fL Critically low 9.5-13.5 [facility] Comment on above: Performed By: #### C BC #### [facility] [address] [place] [address] Dr. Dwight Waters PLT 265 103/ul Normal 150-450 [facility] Comment on above: Performed By: #### C BC #### [facility] [address] [place] [address] Dr. Dwight Waters RBC 5.69 106/ul Normal 4.70-6.10 [facility] Comment on above: Performed By: #### C BC #### [facility] [address] [place] [address] Dr. Dwight Waters WBC 6.6 103/ul Normal 4.0-11.0 [facility] Comment on above: Performed By: #### C BC #### [facility] [address] [place] [address] Dr. Dwight Waters GGTon 09-15-2022 Gamma glutamyl transferase [Catalytic activity/Vol] 23 U/L Normal 15-85 [facility] Comment on above: Performed By: #### U RTPCR #### [facility] [address] [place] [address] Dr. Dwight Waters MAGNESIUMon 09-15-2022 Magnesium [Mass/Vol] 1.8 mg/dL Normal 1.8-2.4 [facility] Comment on above: Performed By: #### U RTPCR #### [facility] [address] [place] [address] Dr. Dwight Waters RENAL FUNCTION PANELon 09-15 Albumin [Mass/Vol] 4.1 g/dL Normal 3.4-5.0 [facility] Comment on above: Performed By: #### C BC #### [facility] [address] [place] [address] Dr. Dwight Waters Calcium [Mass/Vol] 9.3 mg/dL Normal 8.5-10.1 [facility] Comment on above: Performed By: #### C BC #### [facility] [address] [place] [address] Dr. Dwight Waters Chloride [Moles/Vol] 107 mmol/L Normal 98-107 [facility] Comment on above: Performed By: #### C BC #### [facility] [address] [place] [address] Dr. Dwight Waters CO2 [Moles/Vol] 25.6 mmol/L Normal 21.0-32.0 [facility] Comment on above: Performed By: #### C BC #### [facility] [address] [address] [address] Dwight Waters Creatinine [Mass/Vol] 1.01 mg/dL Normal 0.70-1.30 [facility] Comment on above: Performed By: #### C BC #### [facility] [address] [place] [address] Dr. Dwight Waters EGFR-AF BRAZILIAN >60 Normal >=60 [facility] Comment on above: Performed By: #### C BC #### [facility] [address] [place] [address] Dr. Dwight Waters EGFR-NON AF BRAZILIAN >60 Normal >=60 [facility] Comment on above: Performed By: #### C BC #### [facility] [address] [place] [address] Dr. Dwight Waters Glucose [Mass/Vol] 119 mg/dL Critically high 74-106 [facility] Comment on above: Performed By: #### C BC #### [facility] [address] [place] [address] Dr. Dwight Waters Phosphate [Mass/Vol] 2.8 mg/dL Normal 2.6-4.7 [facility] Comment on above: Performed By: #### C BC #### [facility] [address] [place] [address] Dr. Dwight Waters Potassium [Moles/Vol] 4.0 mmol/L Normal 3.5-5.1 [facility] Comment on above: Performed By: #### C BC #### [facility] [address] [place] [address] Dr. Dwight Waters Sodium [Moles/Vol] 141 mmol/L Normal 136-145 [facility] Comment on above: Performed By: #### C BC #### [facility] [address] [place] [address] Dr. Dwight Waters Urea nitrogen [Mass/Vol] 15.0 mg/dL Normal 7.0-18.0 [facility] Comment on above: Performed By: #### C BC #### [facility] [address] [place] [address] Dr. Dwight OLVERAOTon 09-15-2022 AST [Catalytic activity/Vol] 18 U/L Normal 15-37 [facility] Comment on above: Performed By: #### U RTPCR #### [facility] [address] [place] [address] Dr. Dwight OLVERAPTon 09-15-2022 ALT [Catalytic activity/Vol] 32 U/L Normal 16-63 [facility] Comment on above: Performed By: #### C BC #### [facility] [address] [place] [address] Dr. Dwight Waters URINE T PROTEIN CREAT RATIOo n 09-15-2022 Protein (U) [Mass/Vol] 14.1 mg/dL Critically high <=12.0 [facility] Comment on above: Performed By: #### U RTPCR #### [facility] [address] [place] [address] Dr. Dwight Waters UR PROT CREAT RAT 0.14 Normal [facility] Comment on above: Performed By: #### U RTPCR #### [facility] [address] [place] [address] Dr. Dwight Waters URINE CREAT 98.89 mg/dL Normal 20.00-300.00 [facility] Comment on above: Performed By: #### U RTPCR #### [facility] [address] [place] [address] Dr. Dwight Waters US CAROTID ART BILon [...] MÓNICA JIMENEZ Date: 2022-08-28 13:20 Normal [facility] FK506 (TACROLIMUS) WHOLE BLO ODon 08-17-2022 Tacrolimus (FK506), Blood 9.9 ng/mL Normal 2.0-20.0 [facility] Comment on above: Result Comment: Trou gh (immediately following transplant) 15.0 . Trough (steady state, 2 weeks or more after transplant): 3.0 - 8.0 . Performed by LC-MS/MS technology. Performed By: #### F [id number] #### [facility] [address] [place] [address] Dr. Dwight Waters BK VIRUS PCR QUANTon 022 BKV DNA QUANT PCR PLASMA Negative Normal Negative [facility] Comment on above: Result Comment: No B K DNA detected. . The linear range of the assay is 22 - 100,000,000 IU/mL. Performed By: #### U RTPCR #### [facility] [address] [place] [address] Dr. Dwight Waters Log10 BKV DNA Plasma Normal [facility] Comment on above: Performed By: #### U RTPCR #### [facility] [address] [place] [address] Dr. Dwight Waters ALBUMINon 08-14-2022 Albumin [Mass/Vol] 4.2 g/dL Normal 3.4-5.0 [facility] Comment on above: Performed By: #### F [id number] #### [facility] [address] [place] [address] Dr. Dwight Waters ALKALINE PHOSPHAon ALP [Catalytic activity/Vol] 92 U/L Normal 46-116 [facility] Comment on above: Performed By: #### C BC #### [facility] [address] [place] [address] Dr. Dwight Waters BILIRUBIN CONJUGATED (DIRECT )on 08-14-2022 BILI, CONJUGATED 0.3 mg/dL Critically high 0.0-0.2 [facility] Comment on above: Performed By: #### F [id number] #### [facility] [address] [place] [address] Dr. Dwight Waters BILIRUBIN TOTALon 08-14-2022 Bilirubin [Mass/Vol] 1.5 mg/dL Critically high 0.2-1.0 [facility] Comment on above: Performed By: #### F [id number] #### [facility] [address] [place] [address] Dr. Dwight Waters BUNon 08-14-2022 Urea nitrogen [Mass/Vol] 11.0 mg/dL Normal 7.0-18.0 [facility] Comment on above: Performed By: #### C BC #### [facility] [address] [place] [address] Dr. Dwight Waters CALCIUMon 08-14-2022 Calcium [Mass/Vol] 9.4 mg/dL Normal 8.5-10.1 [facility] Comment on above: Performed By: #### F [id number] #### [facility] [address] [place] [address] Dr. Dwight Waters CBC AUTO DIFFon 08-14-2022 BASO # 0.0 103/ul Normal 0.0-0.1 [facility] Comment on above: Performed By: #### C MP #### [facility] [address] [place] [address] Dr. Dwight Waters Basophils/100 WBC (Bld) 0.5 % Normal 0.2-2.0 [facility] Comment on above: Performed By: #### C MP #### [facility] [address] [place] [address] Dr. Dwight Waters EO # 0.2 103/ul Normal 0.0-0.7 [facility] Comment on above: Performed By: #### C MP #### [facility] [address] [place] [address] Dr. Dwight Waters Eosinophils/100 WBC (Bld) 2.6 % Normal 0.9-7.0 [facility] Comment on above: Performed By: #### C MP #### [facility] [address] [place] [address] Dr. Dwight Waters Erythrocyte distribution width (RBC) [Ratio] 13.1 % Normal 11.0-15.0 [facility] Comment on above: Performed By: #### C MP #### [facility] [address] [place] [address] Dr. Dwight Waters Hematocrit (Bld) [Volume fraction] 47.0 % Normal 42.0-54.0 [facility] Comment on above: Performed By: #### C MP #### [facility] [address] [place] [address] Dr. Dwight Waters Hemoglobin (Bld) [Mass/Vol] 15.3 g/dL Normal 14.0-18.0 [facility] Comment on above: Performed By: #### C MP #### [facility] [address] [place] [address] Dr. Dwight Waters IG # 0.01 10e3/ul Normal 0.00-0.03 [facility] Comment on above: Performed By: #### C MP #### [facility] [address] [place] [address] Dr. Dwight Waters IG % 0.1 % Normal 0.0-0.5 [facility] Comment on above: Performed By: #### C MP #### [facility] [address] [place] [address] Dr. Dwight Waters LYMPH # 2.3 103/ul Normal 1.2-3.8 [facility] Comment on above: Performed By: #### C MP #### [facility] [address] [place] [address] Dr. Dwight Waters Lymphocytes/100 WBC (Bld) 29.8 % Normal 20.5-60.0 [facility] Comment on above: Performed By: #### C MP #### [facility] [address] [place] [address] Dr. Dwight Waters MANUAL DIFF REQ NO Normal [facility] Comment on above: Performed By: #### C MP #### [facility] [address] [place] [address] Dr. Dwight Waters MCH (RBC) [Entitic mass] 28.2 pg Normal 25.9-34.0 [facility] Comment on above: Performed By: #### C MP #### [facility] [address] [place] [address] Dr. Dwight Waters MCHC (RBC) [Mass/Vol] 32.6 g/dL Normal 29.9-35.2 [facility] Comment on above: Performed By: #### C MP #### [facility] [address] [place] [address] Dr. Dwight Waters MCV (RBC) [Entitic vol] 86.7 fL Normal 80.0-94.0 [facility] Comment on above: Performed By: #### C MP #### [facility] [address] [place] [address] Dr. Dwight Waters MONO # 0.7 103/ul Normal 0.3-0.8 [facility] Comment on above: Performed By: #### C MP #### [facility] [address] [place] [address] Dr. Dwight Waters Monocytes/100 WBC (Bld) 8.5 % Normal 1.7-12.0 [facility] Comment on above: Performed By: #### C MP #### [facility] [address] [place] [address] Dr. Dwight Waters NEUT # 4.5 103/ul Normal 1.4-6.5 [facility] Comment on above: Performed By: #### C MP #### [facility] [address] [place] [address] Dr. Dwight Waters Neutrophils/100 WBC (Bld) 58.5 % Normal 43.0-75.0 [facility] Comment on above: Performed By: #### C MP #### [facility] [address] [place] [address] Dr. Dwight Waters Platelet mean volume (Bld) [Entitic vol] 9.7 fL Normal 9.5-13.5 [facility] Comment on above: Performed By: #### C MP #### [facility] [address] [place] [address] Dr. Dwight Waters PLT 266 103/ul Normal 150-450 [facility] Comment on above: Performed By: #### C MP #### [facility] [address] [place] [address] Dr. Dwight Waters RBC 5.42 106/ul Normal 4.70-6.10 [facility] Comment on above: Performed By: #### C MP #### [facility] [address] [place] [address] Dr. Dwight Waters WBC 7.6 103/ul Normal 4.0-11.0 [facility] Comment on above: Performed By: #### C MP #### [facility] [address] [place] [address] Dr. Dwight Waters CHLORIDEon 08-14-2022 Chloride [Moles/Vol] 104 mmol/L Normal 98-107 [facility] Comment on above: Performed By: #### C BC #### [facility] [address] [place] [address] Dr. Dwight Waters CO2on 08-14-2022 CO2 [Moles/Vol] 27.9 mmol/L Normal 21.0-32.0 [facility] Comment on above: Performed By: #### C BC #### [facility] Laboratory [address] [place] [address] Dr. Dwight Waters CREATININEon 08-14-2022 Creatinine [Mass/Vol] 1.08 mg/dL Normal 0.70-1.30 [facility] Comment on above: Performed By: #### C BC #### [facility] [address] [place] [address] Dr. Dwight Waters EGFR-AF BRAZILIAN >60 Normal >=60 [facility] Comment on above: Performed By: #### C BC #### [facility] [address] [place] [address] Dr. Dwight Waters EGFR-NON AF BRAZILIAN >60 Normal >=60 [facility] Comment on above: Performed By: #### C BC #### [facility] [address] [place] [address] Dr. Dwight Waters GGTon 08-14-2022 Gamma glutamyl transferase [Catalytic activity/Vol] 24 U/L Normal 15-85 [facility] Comment on above: Performed By: #### F [id number] #### [facility] [address] [place] [address] Dr. Dwight Waters GLUCOSE BLOODon 08-14-2022 Glucose [Mass/Vol] 111 mg/dL Critically high 74-106 [facility] Comment on above: Performed By: #### C BC #### [facility] [address] [place] [address] Dr. Dwight Waters MAGNESIUMon 08-14-2022 Magnesium [Mass/Vol] 1.4 mg/dL Critically low 1.8-2.4 [facility] Comment on above: Performed By: #### C BC #### [facility] [address] [place] [address] Dr. Dwihgt Waters NAon 08-14-2022 Sodium [Moles/Vol] 140 mmol/L Normal 136-145 [facility] Comment on above: Performed By: #### F [id number] #### [facility] [address] [place] [address] Dr. Dwight Waters PHOSPHORUSon 08-14-2022 Phosphate [Mass/Vol] 3.1 mg/dL Normal 2.6-4.7 [facility] Comment on above: Performed By: #### C BC #### [facility] [address] [place] [address] Dr. Dwight Waters POTASSIUMon 08-14-2022 Potassium [Moles/Vol] 3.5 mmol/L Normal 3.5-5.1 [facility] Comment on above: Performed By: #### C BC #### [facility] [address] [place] [address] Dr. Dwight Waters SGOTon 08-14-2022 AST [Catalytic activity/Vol] 17 U/L Normal 15-37 [facility] Comment on above: Performed By: #### F [id number] #### [facility] [address] [place] [address] Dr. Dwight Waters SGPTon 08-14-2022 ALT [Catalytic activity/Vol] 22 U/L Normal 16-63 [facility] Comment on above: Performed By: #### F [id number] #### [facility] [address] [place] [address] Dr. Dwight Waters URINE T PROTEIN CREAT RATIOo n 08-14-2022 Protein (U) [Mass/Vol] 10.7 mg/dL Normal <=12.0 [facility] Comment on above: Performed By: #### F [id number] #### [facility] [address] [place] [address] Dr. Dwight Waters UR PROT CREAT RAT 0.10 Normal [facility] Comment on above: Performed By: #### F K506T #### [facility] [address] [place] [address] Dr. Dwight Waters URINE CREAT 104.28 mg/dL Normal 20.00-300.00 [facility] Comment on above: Performed By: #### F K506T #### [facility] [address] [place] [address] Dr. Dwight Waters NEPHROSTOMY TUBE REMOVALon 0 [...] Assisting physician present for entire procedure: yes [facility] Radiology Study observation (narrative) [facility] FK506 (TACROLIMUS) WHOLE BLO ODon 07-06-2022 Tacrolimus (FK506), Blood 9.5 ng/mL Normal 2.0-20.0 [facility] Comment on above: Result Comment: Trou gh (immediately following transplant) 15.0 . Trough (steady state, 2 weeks or more after transplant): 3.0 - 8.0 . Performed by LC-MS/MS technology. Performed By: #### C MP #### [facility] [address] [place] [address] Dr. Dwight Waters ALBUMINon 07-03-2022 Albumin [Mass/Vol] 3.7 g/dL Normal 3.4-5.0 [facility] Comment on above: Performed By: #### U RTPCR #### [facility] [address] [place] [address] Dr. Dwight Waters ALKALINE PHOSPHAon ALP [Catalytic activity/Vol] 76 U/L Normal 46-116 [facility] Comment on above: Performed By: #### U RTPCR #### [facility] [address] [place] [address] Dr. Dwight Waters BILIRUBIN CONJUGATED (DIRECT )on 07-03-2022 BILI, CONJUGATED 0.3 mg/dL Critically high 0.0-0.2 [facility] Comment on above: Performed By: #### C BC #### [facility] [address] [place] [address] Dr. Dwight Waters BILIRUBIN TOTALon 07-03-2022 Bilirubin [Mass/Vol] 1.4 mg/dL Critically high 0.2-1.0 [facility] Comment on above: Performed By: #### C BC #### [facility] [address] [place] [address] Dr. Dwight Waters BUNon 07-03-2022 Urea nitrogen [Mass/Vol] 15.0 mg/dL Normal 7.0-18.0 [facility] Comment on above: Performed By: #### C BC #### [facility] [address] [place] [address] Dr. Dwight Waters CALCIUMon 07-03-2022 Calcium [Mass/Vol] 9.4 mg/dL Normal 8.5-10.1 [facility] Comment on above: Performed By: #### U RTPCR #### [facility] [address] [place] [address] Dr. Dwight Waters CBC AUTO DIFFon 07-03-2022 BASO # 0.0 103/ul Normal 0.0-0.1 [facility] Comment on above: Performed By: #### U RTPCR #### [facility] [address] [place] [address] Dr. Dwight Waters Basophils/100 WBC (Bld) 0.6 % Normal 0.2-2.0 [facility] Comment on above: Performed By: #### U RTPCR #### [facility] [address] [place] [address] Dr. Dwight Waters EO # 0.2 103/ul Normal 0.0-0.7 [facility] Comment on above: Performed By: #### U RTPCR #### [facility] [address] [place] [address] Dr. wDight Waters Eosinophils/100 WBC (Bld) 3.5 % Normal 0.9-7.0 [facility] Comment on above: Performed By: #### U RTPCR #### [facility] [address] [place] [address] Dr. Dwight Waters Erythrocyte distribution width (RBC) [Ratio] 12.9 % Normal 11.0-15.0 [facility] Comment on above: Performed By: #### U RTPCR #### [facility] [address] [place] [address] Dr. Dwight Waters Hematocrit (Bld) [Volume fraction] 44.2 % Normal 42.0-54.0 [facility] Comment on above: Performed By: #### U RTPCR #### [facility] [address] [address] [address] Dwight Waters Hemoglobin (Bld) [Mass/Vol] 14.6 g/dL Normal 14.0-18.0 [facility] Comment on above: Performed By: #### U RTPCR #### [facility] [address] [address] [address] Dwight Waters IG # 0.02 10e3/ul Normal 0.00-0.03 [facility] Comment on above: Performed By: #### U RTPCR #### [facility] [address] [place] [address] Dr. Dwight Waters IG % 0.3 % Normal 0.0-0.5 [facility] Comment on above: Performed By: #### U RTPCR #### [facility] [address] [place] [address] Dr. Dwight Waters LYMPH # 2.0 103/ul Normal 1.2-3.8 [facility] Comment on above: Performed By: #### U RTPCR #### [facility] [address] [place] [address] Dr. Dwight Waters Lymphocytes/100 WBC (Bld) 28.4 % Normal 20.5-60.0 [facility] Comment on above: Performed By: #### U RTPCR #### [facility] [address] [place] [address] Dr. Dwight Waters MANUAL DIFF REQ NO Normal [facility] Comment on above: Performed By: #### U RTPCR #### [facility] [address] [place] [address] Dr. Dwight Waters MCH (RBC) [Entitic mass] 28.6 pg Normal 25.9-34.0 [facility] Comment on above: Performed By: #### U RTPCR #### [facility] [address] [place] [address] Dr. Dwight Waters MCHC (RBC) [Mass/Vol] 33.0 g/dL Normal 29.9-35.2 [facility] Comment on above: Performed By: #### U RTPCR #### [facility] [address] [place] [address] Dr. Dwight Waters MCV (RBC) [Entitic vol] 86.7 fL Normal 80.0-94.0 [facility] Comment on above: Performed By: #### U RTPCR #### [facility] [address] [place] [address] Dr. Dwight Waters MONO # 0.6 103/ul Normal 0.3-0.8 [facility] Comment on above: Performed By: #### U RTPCR #### [facility] [address] [place] [address] Dr. Dwight Waetrs Monocytes/100 WBC (Bld) 9.1 % Normal 1.7-12.0 [facility] Comment on above: Performed By: #### U RTPCR #### [facility] [address] [place] [address] Dr. Dwight Waters NEUT # 4.0 103/ul Normal 1.4-6.5 [facility] Comment on above: Performed By: #### U RTPCR #### [facility] [address] [place] [address] Dr. Dwight Waters Neutrophils/100 WBC (Bld) 58.1 % Normal 43.0-75.0 [facility] Comment on above: Performed By: #### U RTPCR #### [facility] [address] [place] [address] Dr. Dwight Waters Platelet mean volume (Bld) [Entitic vol] 9.5 fL Normal 9.5-13.5 [facility] Comment on above: Performed By: #### U RTPCR #### [facility] [address] [place] [address] Dr. Dwight Waters PLT 292 103/ul Normal 150-450 [facility] Comment on above: Performed By: #### U RTPCR #### [facility] [address] [place] [address] Dr. Dwight Waters RBC 5.10 106/ul Normal 4.70-6.10 [facility] Comment on above: Performed By: #### U RTPCR #### [facility] [address] [place] [address] Dr. Dwight Waters WBC 6.9 103/ul Normal 4.0-11.0 [facility] Comment on above: Performed By: #### U RTPCR #### [facility] [address] [place] [address] Dr. Dwight Waters CHLORIDEon 07-03-2022 Chloride [Moles/Vol] 108 mmol/L Critically high 98-107 [facility] Comment on above: Performed By: #### C BC #### [facility] [address] [place] [address] Dr. Dwight Waters CO2on 07-03-2022 CO2 [Moles/Vol] 25.2 mmol/L Normal 21.0-32.0 [facility] Comment on above: Performed By: #### C BC #### [facility] [address] [place] [address] Dr. Dwight Waters CREATININEon 07-03-2022 Creatinine [Mass/Vol] 1.03 mg/dL Normal 0.70-1.30 [facility] Comment on above: Performed By: #### U RTPCR #### [facility] [address] [place] [address] Dr. Dwight Waters EGFR-AF BRAZILIAN >60 Normal >=60 [facility] Comment on above: Performed By: #### U RTPCR #### [facility] [address] [place] [address] Dr. Dwight Waters EGFR-NON AF BRAZILIAN >60 Normal >=60 [facility] Comment on above: Performed By: #### U RTPCR #### [facility] [address] [place] [address] Dr. Dwight Waters GGTon 07-03-2022 Gamma glutamyl transferase [Catalytic activity/Vol] 31 U/L Normal 15-85 [facility] Comment on above: Performed By: #### U RTPCR #### [facility] [address] [place] [address] Dr. Dwight Waters GLUCOSE BLOODon 07-03-2022 Glucose [Mass/Vol] 119 mg/dL Critically high 74-106 [facility] Comment on above: Performed By: #### U RTPCR #### [facility] [address] [place] [address] Dr. Dwight Waters MAGNESIUMon 07-03-2022 Magnesium [Mass/Vol] 1.4 mg/dL Critically low 1.8-2.4 [facility] Comment on above: Performed By: #### C BC #### [facility] [address] [place] [address] Dr. Dwight Waters NAon 07-03-2022 Sodium [Moles/Vol] 142 mmol/L Normal 136-145 [facility] Comment on above: Performed By: #### C MP #### [facility] [address] [place] [address] Dr. Dwight Waters PHOSPHORUSon 07-03-2022 Phosphate [Mass/Vol] 3.4 mg/dL Normal 2.6-4.7 [facility] Comment on above: Performed By: #### C BC #### [facility] [address] [place] [address] Dr. Dwight Waters POTASSIUMon 07-03-2022 Potassium [Moles/Vol] 4.1 mmol/L Normal 3.5-5.1 [facility] Comment on above: Performed By: #### C BC #### [facility] [address] [place] [address] Dr. Dwight Waters SGOTon 07-03-2022 AST [Catalytic activity/Vol] 14 U/L Critically low 15-37 [facility] Comment on above: Performed By: #### C BC #### [facility] [address] [place] [address] Dr. Dwight Waters SGPTon 07-03-2022 ALT [Catalytic activity/Vol] 25 U/L Normal 16-63 [facility] Comment on above: Performed By: #### C BC #### [facility] [address] [place] [address] Dr. Dwight Waters US KIDNEYSon 07-03-2022 US KIDNEYS Ultrasound kidneys, bilateral HISTORY: Transplant of kidney , pain in the right lower quadrant COMPARISON: None. TECHNIQUE: Transabdominal ultrasound imaging of both kidneys was performed. FINDINGS: The [place] kidneys are diffusely echogenic and atrophic with cortical thinning. The right kidney measures 8.3 x 3.5 x 4.07 m and the left measures 9.9 x 3.8 x 3.6 cm. No hydronephrosis of the [place] kidneys. There is a renal transplant in [...] stone involving the renal transplant. 2. Atrophic [place] kidneys. 3. Normal bladder. Electronically authenticated by: ARCELIA PIZARRO Date: 2022-07-03 17:22 Normal [facility] CT Abdomen and Pelvis WO con traston 06-27-2022 IMPRESSION: 1. Both [place] kidneys are atrophic with improvement in right-sided [...] Adrenals: Adrenal glands are unremarkable. Kidneys: Both [place] kidneys are atrophic. Interval improvement in right [place] kidney hydronephrosis since May 15, 2022. Status [...] Adrenals: Adrenal glands are unremarkable. Kidneys: Both [place] kidneys are atrophic. Interval improvement in right [place] kidney hydronephrosis since May 15, 2022. Status [...] aggressive osseous lesions. IMPRESSION IMPRESSION: 1. Both [place] kidneys are atrophic with improvement in right-sided hydronephrosis since May 15, 2022. 2. 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 No hydronephrosis. No discrete perinephric collection. 3. Partially imaged postsurgical changes related to prior liver transplant. 4. The bladder is decompressed, limiting evaluation. [facility] con trastOrdered By: Gera Lu on 06-27-2022 [facility] Work Phone: CBC AUTO DIFFon 06-18-2022 BASO # 0.0 103/ul Normal 0.0-0.1 [facility] Comment on above: Performed By: #### U RTPCR #### [facility] [address] [place] [address] Dr. Dwight Waters Basophils/100 WBC (Bld) 0.5 % Normal 0.2-2.0 [facility] Comment on above: Performed By: #### U RTPCR #### [facility] [address] [address] [address] Dwight Waters EO # 0.2 103/ul Normal 0.0-0.7 [facility] Comment on above: Performed By: #### U RTPCR #### [facility] [address] [place] [address] Dr. Dwight Waters Eosinophils/100 WBC (Bld) 2.3 % Normal 0.9-7.0 [facility] Comment on above: Performed By: #### U RTPCR #### [facility] [address] [place] [address] Dr. Dwight Waters Erythrocyte distribution width (RBC) [Ratio] 12.9 % Normal 11.0-15.0 [facility] Comment on above: Performed By: #### U RTPCR #### [facility] [address] [place] [address] Dr. Dwight Waters Hematocrit (Bld) [Volume fraction] 41.2 % Critically low 42.0-54.0 [facility] Comment on above: Performed By: #### U RTPCR #### [facility] [address] [place] [address] Dr. Dwight Waters Hemoglobin (Bld) [Mass/Vol] 13.3 g/dL Critically low 14.0-18.0 [facility] Comment on above: Performed By: #### U RTPCR #### [facility] [address] [place] [address] Dr. Dwight Waters IG # 0.04 10e3/ul Critically high 0.00-0.03 [facility] Comment on above: Performed By: #### U RTPCR #### [facility] [address] [place] [address] Dr. Dwight Waters IG % 0.5 % Normal 0.0-0.5 [facility] Comment on above: Performed By: #### U RTPCR #### [facility] [address] [place] [address] Dr. Dwight Waters LYMPH # 2.0 103/ul Normal 1.2-3.8 [facility] Comment on above: Performed By: #### U RTPCR #### [facility] [address] [place] [address] Dr. Dwight Waters Lymphocytes/100 WBC (Bld) 22.9 % Normal 20.5-60.0 [facility] Comment on above: Performed By: #### U RTPCR #### [facility] [address] [place] [address] Dr. Dwight Waters MANUAL DIFF REQ NO Normal [facility] Comment on above: Performed By: #### U RTPCR #### [facility] [address] [place] [address] Dr. Dwight Waters MCH (RBC) [Entitic mass] 28.7 pg Normal 25.9-34.0 [facility] Comment on above: Performed By: #### U RTPCR #### [facility] [address] [place] [address] Dr. Dwight Waters MCHC (RBC) [Mass/Vol] 32.3 g/dL Normal 29.9-35.2 [facility] Comment on above: Performed By: #### U RTPCR #### [facility] [address] [place] [address] Dr. Dwight Waters MCV (RBC) [Entitic vol] 88.8 fL Normal 80.0-94.0 [facility] Comment on above: Performed By: #### U RTPCR #### [facility] [address] [place] [address] Dr. Dwight Waters MONO # 0.8 103/ul Normal 0.3-0.8 [facility] Comment on above: Performed By: #### U RTPCR #### [facility] [address] [place] [address] Dr. Dwight Waters Monocytes/100 WBC (Bld) 9.7 % Normal 1.7-12.0 [facility] Comment on above: Performed By: #### U RTPCR #### [facility] [address] [place] [address] Dr. Dwight Waters NEUT # 5.6 103/ul Normal 1.4-6.5 [facility] Comment on above: Performed By: #### U RTPCR #### [facility] [address] [place] [address] Dr. Dwight Waters Neutrophils/100 WBC (Bld) 64.1 % Normal 43.0-75.0 [facility] Comment on above: Performed By: #### U RTPCR #### [facility] [address] [place] [address] Dr. Dwight Waters Platelet mean volume (Bld) [Entitic vol] 10.0 fL Normal 9.5-13.5 [facility] Comment on above: Performed By: #### U RTPCR #### [facility] [address] [address] [address] Dwight Waters PLT 270 103/ul Normal 150-450 [facility] Comment on above: Performed By: #### U RTPCR #### [facility] [address] [address] [address] Dwight Waters RBC 4.64 106/ul Critically low 4.70-6.10 [facility] Comment on above: Performed By: #### U RTPCR #### [facility] [address] [address] [address] Dwight Waters WBC 8.7 103/ul Normal 4.0-11.0 [facility] Comment on above: Performed By: #### U RTPCR #### [facility] [address] [place] [address] Dr. Dwight Waters CULTURE URINEon 06-18-2022 CULTURE URINE Culture Observations : NO GROWTH. Normal [facility] Comment on above: Performed By: #### U RTPCR #### [facility] [address] [place] [address] Dr. Dwight Waters [facility] SARS-CoV-2 (COVID-19) RNA ESTELITA+probe Ql (Unsp spec) Not detected Normal NOT DETECTED [facility] Comment on above: Result Comment: When [...] for this test is supported by the [employer] and Human Service's declaration that [...] used). Performed By: #### C BC #### [facility] [address] [place] [address] Dr. Dwight Waters ER URINE PROFILEon 2 Bilirubin Ql (U) Negative Normal NEGATIVE [facility] Comment on above: Performed By: #### U RTPCR #### [facility] [address] [place] [address] Dr. Dwight Waters Clarity (U) CLEAR Normal CLEAR [facility] Comment on above: Performed By: #### U RTPCR #### [facility] [address] [place] [address] Dr. Dwight Waters Color (U) YELLOW Normal YELLOW [facility] Comment on above: Performed By: #### U RTPCR #### [facility] [address] [place] [address] Dr. Dwight Waters ERUAHD A micrscopic examina tion will be performed if indicated. Normal [facility] Comment on above: Performed By: #### U RTPCR #### [facility] [address] [place] [address] Dr. Dwight Waters Glucose Ql (U) Negative Normal NEGATIVE [facility] Comment on above: Performed By: #### U RTPCR #### [facility] [address] [place] [address] Dr. Dwight Waters Hemoglobin Ql (U) LARGE Abnormal NEGATIVE [facility] Comment on above: Performed By: #### U RTPCR #### [facility] [address] [place] [address] Dr. Dwight Waters Ketones Ql (U) Negative Normal NEGATIVE [facility] Comment on above: Performed By: #### U RTPCR #### [facility] [address] [place] [address] Dr. Dwight Waters LEUKOCYTES TRACE Abnormal NEGATIVE [facility] Comment on above: Performed By: #### U RTPCR #### [facility] [address] [place] [address] Dr. Dwight Waters Nitrite Ql (U) Negative Normal NEGATIVE [facility] Comment on above: Performed By: #### U RTPCR #### [facility] [address] [address] [address] Dwight Waters pH (U) 6.0 [pH] Normal 5-9 [facility] Comment on above: Performed By: #### U RTPCR #### [facility] [address] [place] [address] Dr. Dwight Waters Protein (U) [Mass/Vol] 30 mg/dL Abnormal NEGATIVE/ TRACE [facility] Comment on above: Performed By: #### U RTPCR #### [facility] [address] [place] [address] Dr. Dwight Waters SPEC GRAVITY >=1.030 Abnormal 1.005-<=1.02 5 [facility] Comment on above: Performed By: #### U RTPCR #### [facility] [address] [place] [address] Dr. Dwight Waters UR MICRO IND INDICATED Normal [facility] Comment on above: Performed By: #### U RTPCR #### [facility] [address] [place] [address] Dr. wDight Waters Urobilinogen Qn (U) 0.2 {Alyssa'U}/dL Normal 0.2 - 1. 0 [facility] Comment on above: Performed By: #### U RTPCR #### [facility] [address] [place] [address] Dr. Dwight Waters PROF 14(COMP METB)on 022 Albumin [Mass/Vol] 3.7 g/dL Normal 3.4-5.0 [facility] Comment on above: Performed By: #### C MP #### [facility] [address] [place] [address] Dr. Dwight Waters Albumin/Globulin [Mass ratio] 0.9 {ratio} Normal [facility] Comment on above: Performed By: #### C MP #### [facility] [address] [place] [address] Dr. Dwight Waters ALP [Catalytic activity/Vol] 80 U/L Normal 46-116 [facility] Comment on above: Performed By: #### C MP #### [facility] [address] [place] [address] Dr. Dwight Waters ALT [Catalytic activity/Vol] 24 U/L Normal 16-63 [facility] Comment on above: Performed By: #### C MP #### [facility] [address] [place] [address] Dr. Dwight Waters Anion gap [Moles/Vol] 12.9 mmol/L Normal [facility] Comment on above: Performed By: #### C MP #### [facility] [address] [place] [address] Dr. Dwight Waters AST [Catalytic activity/Vol] 17 U/L Normal 15-37 [facility] Comment on above: Performed By: #### C MP #### [facility] [address] [place] [address] Dr. Dwight Waters Bilirubin [Mass/Vol] 0.8 mg/dL Normal 0.2-1.0 [facility] Comment on above: Performed By: #### C MP #### [facility] [address] [place] [address] Dr. Dwight Waters Calcium [Mass/Vol] 9.4 mg/dL Normal 8.5-10.1 [facility] Comment on above: Performed By: #### C MP #### [facility] [address] [place] [address] Dr. Dwight Waters Chloride [Moles/Vol] 106 mmol/L Normal 98-107 [facility] Comment on above: Performed By: #### C MP #### [facility] [address] [place] [address] Dr. Dwight Waters CO2 [Moles/Vol] 25.3 mmol/L Normal 21.0-32.0 [facility] Comment on above: Performed By: #### C MP #### [facility] [address] [place] [address] Dr. Dwight Waters Creatinine [Mass/Vol] 1.29 mg/dL Normal 0.70-1.30 [facility] Comment on above: Performed By: #### C MP #### [facility] [address] [place] [address] Dr. Dwight Waters EGFR-AF BRAZILIAN >60 Normal >=60 [facility] Comment on above: Performed By: #### C MP #### [facility] [address] [address] [address] Dwight Waters EGFR-NON AF BRAZILIAN 59 mL/min/1.73m2 Critically low >=60 [facility] Comment on above: Performed By: #### C MP #### [facility] [address] [address] [address] Dwight Waters Globulin (S) [Mass/Vol] 4.2 g/dL Normal [facility] Comment on above: Performed By: #### C MP #### [facility] [address] [place] [address] Dr. Dwight Waters Glucose [Mass/Vol] 106 mg/dL Normal 74-106 [facility] Comment on above: Performed By: #### C MP #### [facility] [address] [address] [address] Dwight Waters Potassium [Moles/Vol] 4.2 mmol/L Normal 3.5-5.1 [facility] Comment on above: Performed By: #### C MP #### [facility] [address] [place] [address] Dr. Dwight Waters Protein [Mass/Vol] 7.9 g/dL Normal 6.4-8.2 [facility] Comment on above: Performed By: #### C MP #### [facility] [address] [address] [address] Dwight Waters Sodium [Moles/Vol] 140 mmol/L Normal 136-145 [facility] Comment on above: Performed By: #### C MP #### [facility] [address] [address] [address] Dwight Waters Urea nitrogen [Mass/Vol] 22.0 mg/dL Critically high 7.0-18.0 [facility] Comment on above: Performed By: #### C MP #### [facility] [address] [address] [address] Dwight Waters Urea nitrogen/Creatinine [Mass ratio] 17.1 mg/mg Normal [facility] Comment on above: Performed By: #### C MP #### [facility] [address] [place] [address] Dr. Dwight Waters URINE MICROSCOPIC ONLYon BACTERIA TRACE Abnormal NONE SEEN [facility] Comment on above: Performed By: #### U RTPCR #### [facility] [address] [place] [address] Dr. Dwight Waters Bacteria identified Cx Nom (U) INDICATED Normal [facility] Comment on above: Performed By: #### U RTPCR #### [facility] [address] [place] [address] Dr. Dwight Waters CAST NONE SEEN Normal NONE SEEN [facility] Comment on above: Performed By: #### U RTPCR #### [facility] [address] [place] [address] Dr. Dwight Waters Crystals LM Nom (Urine sed) NONE SEEN Normal NONE SEEN [facility] Comment on above: Performed By: #### U RTPCR #### [facility] [address] [place] [address] Dr. Dwight Waters Epithelial cells LM Ql (Urine sed) NONE SEEN Normal NONE SEEN /RARE [facility] Comment on above: Performed By: #### U RTPCR #### [facility] [address] [place] [address] Dr. Dwight Waters MUCOUS NONE SEEN Normal NONE SEEN [facility] Comment on above: Performed By: #### U RTPCR #### [facility] [address] [place] [address] Dr. Dwight Waters RBC 5-10 Abnormal 0-2 [facility] Comment on above: Performed By: #### U RTPCR #### [facility] [address] [place] [address] Dr. Dwight Waters WBC 10-20 Abnormal NONE SEEN [facility] Comment on above: Performed By: #### U RTPCR #### [facility] [address] [place] [address] Dr. Dwight Waters ALLOSCREEN RECIPIENT (POST T X PRA)on 06-13-2022 AB SPECIFICITY CLASS COMMENT Antibody Specificity testing performed by [employer]. cPRA calculation based on identification of HLA antibody specificities at MFI >2000 and/or presence of CREG antibodies. [facility] Comment on above: Some of the reagents used for testing in the Clinical Histocompatibility Laboratory have yet to be approved by the FDA. Our certification by CLIA to perform high complexity tests allows us to use these reagents in the context of a stringent QC program, and obviates the need for FDA approval.Testing performed by the [facility] Clinical Histocompatibility Laboratory. [facility] number: [id number]. CLIA number: [id number], Director: Carlito Merchant, PhD, D([facility]). ANTIBODY SPECIFICITY INTERPRETATION Detected [facility] CLASS I SPECIFICITIES Not detected [facility] CLASS II SPECIFICITIES Not detected [facility] HLA Ab (S) 0 % 0 [facility] EXTRA MICROon 06-13-2022 [facility] URINE CULTUREOrdered By: Jah Upton on 06-13-2022 Bacteria identified Cx Nom (Unsp spec) Growth [facility] Bacteria identified Cx Nom (Unsp spec) 10,000-50,000 CFU/mL Mixed skin shimon [facility] Comment on above: Multiple bacterial m orphotypes present. Suggest appropriate recollection if clinically indicated. [facility] CBC,PLATELETSon 06-12-2022 Erythrocyte distribution width (RBC) [Ratio] 13.0 % 10.9 - 14.3 % [facility] Hematocrit (Bld) [Volume fraction] 43.2 % 39.6 - 48.8 % [facility] Hemoglobin (Bld) [Mass/Vol] 13.9 g/dL 13.4 - 16.8 g/dL [facility] Interpretation and review of laboratory results Normal [facility] MCH (RBC) [Entitic mass] 28.7 pg 26.1 - 33.3 pg [facility] MCHC (RBC) [Mass/Vol] 32.2 g/dL 31.9 - 36.5 g/dL [facility] MCV (RBC) [Entitic vol] 89.1 fL 79.0 - 94.5 fL [facility] Platelet mean volume (Bld) [Entitic vol] 10.5 fL 8.7 - 12.3 fL [facility] Platelets (Bld) [#/Vol] 269 10*3/uL 146 - 337 K/uL [facility] RBC (Bld) [#/Vol] 4.85 10*6/uL [facility] WBC (Bld) [#/Vol] 7.68 10*3/uL 3.73 - 10. 10 K/uL [facility] CHEM 7 (LYTES,BUN,CREA,GLUC) on 06-12-2022 Anion gap [Moles/Vol] 14 mmol/L 7 - 17 mmol/L [facility] Chloride [Moles/Vol] 106 mmol/L 98 - 10 8 mmol/L [facility] CO2 [Moles/Vol] 25 mmol/L 21 - 31 mmol/L [facility] Creatinine [Mass/Vol] 1.26 mg/dL 0.70 - 1.30 mg/dL [facility] GFR/1.73 sq M.predicted CKD-EPI (S/P/Bld) [Vol rate/Area] 69 >=60 mL/min/1.73m 2 [facility] Comment on above: Reported eGFR is bas ed on the CKD-EPI 2020 equation using creatinine, age, and sex. Glucose [Mass/Vol] 83 mg/dL 70 - 99 mg/dL [facility] Osmolality Calc [Osmolality] 295 [facility] Potassium [Moles/Vol] 3.8 mmol/L 3.5 - 5.0 mmol/L [facility] Sodium [Moles/Vol] 141 mmol/L 135 - 145 mmol/L [facility] Urea nitrogen [Mass/Vol] 18 mg/dL 7 - 25 mg/dL [facility] Urea nitrogen/Creatinine [Mass ratio] 14 mg/mg [facility] GGTon 06-12-2022 Gamma glutamyl transferase [Catalytic activity/Vol] 20 U/L 8 - 64 U/L [facility] HEMOGLOBIN [id number] By: [employer] on 06-12-2022 Average glucose Estimated from glycated hemoglobin (Bld) [Mass/Vol] 126 mg/dL [facility] HbA1c (Bld) [Mass fraction] 6.0 % High 4.7 - 5.6 % [facility] Interpretation and review of laboratory results Abnormal [facility] HEPATIC FUNCTION PANELon Albumin [Mass/Vol] 4.3 g/dL 3.5 - 5.0 g/dL [facility] ALP [Catalytic activity/Vol] 78 U/L 32 - 126 U/L [facility] ALT [Catalytic activity/Vol] 12 U/L 10 - 52 U/L [facility] AST [Catalytic activity/Vol] 16 U/L 10 - 39 U/L [facility] Bilirubin [Mass/Vol] 1.0 mg/dL <1.5 [facility] Bilirubin.direct [Mass/Vol] 0.2 mg/dL <0.3 [facility] Protein [Mass/Vol] 7.5 g/dL 6.4 - 8.3 g/dL [facility] No Panel Informationon 06-12 Interpretation and review of laboratory results Normal [facility] PTH INTACTOrdered By: Marli Lizarraga on 06-12-2022 Interpretation and review of laboratory results Abnormal [facility] Parathyrin.intact [Mass/Vol] 79.7 pg/mL High 14.0 - 72.0 pg/mL [facility] URINALYSIS REFLEX TO CULTURE PERFORMABLEon 06-12-2022 Appearance (U) Clear Clear [facility] Bacteria LM Ql (Urine sed) ABSENT ABSENT [facility] Color (U) Yellow Yellow [facility] Epithelial cells.squamous LM Ql (Urine sed) 1/hpf = 1+ 1/hpf = 1+, 2-5/hpf = 2+, 0/hpf = 0+, ABSENT [facility] Glucose Test strip (U) [Mass/Vol] Negative Negative [facility] Interpretation and review of laboratory results Abnormal [facility] Ketones (U) [Mass/Vol] Trace Abnormal Negative [facility] Leukocyte esterase Test strip Ql (U) Small Abnormal Negative [facility] Nitrite Ql (U) Negative Negative [facility] pH (U) 5.5 [pH] 5.0 - [facility] Protein (U) [Mass/Vol] 30 mg/dL Abnormal Negative [facility] RBC (U) [#/Vol] Trace Abnormal Negative [facility] RBC LM.HPF (Urine sed) [#/Area] 0-2 0 - 2 /HPF [facility] Specific gravity (U) [Rel density] 1.026 [facility] Urobilinogen (U) [Mass/Vol] 0.2 E.U./dL 0.2 E.U/dL, 1.0 E.U/dL [facility] WBC LM.HPF (Urine sed) [#/Area] 10-20 Abnormal 0 - 5 /HPF [facility] URINE PROTEIN/CREA RATIO, RA NDOMon 06-12-2022 Creatinine (24H U) [Mass/Vol] 231.68 mg/dL [facility] Protein Unsp time (U) [Mass/Vol] 49 mg/dL [facility] Protein/Creatinine (U) [Mass ratio] 0.211 mg/g [facility] FK506 (TACROLIMUS) WHOLE BLO ODon 06-09-2022 Tacrolimus (FK506), Blood 9.8 ng/mL Normal 2.0-20.0 [facility] Comment on above: Result Comment: Trou gh (immediately following transplant) 15.0 . Trough (steady state, 2 weeks or more after transplant): 3.0 - 8.0 . Performed by LC-MS/MS technology. Performed By: #### U RTPCR #### [facility] [address] [place] [address] Dr. Dwight Waters ALBUMINon 06-06-2022 Albumin [Mass/Vol] 3.8 g/dL Normal 3.4-5.0 [facility] Comment on above: Performed By: #### C MP #### [facility] [address] [place] [address] Dr. Dwight Waters ALKALINE PHOSPHAon ALP [Catalytic activity/Vol] 82 U/L Normal 46-116 [facility] Comment on above: Performed By: #### C MP #### [facility] [address] [place] [address] Dr. Dwight Waters BILIRUBIN CONJUGATED (DIRECT )on 06-06-2022 BILI, CONJUGATED 0.2 mg/dL Normal 0.0-0.2 [facility] Comment on above: Performed By: #### C BC #### [facility] [address] [place] [address] Dr. Dwight Waters BILIRUBIN TOTALon 06-06-2022 Bilirubin [Mass/Vol] 1.0 mg/dL Normal 0.2-1.0 [facility] Comment on above: Performed By: #### C BC #### [facility] [address] [place] [address] Dr. Dwight Waters BUNon 06-06-2022 Urea nitrogen [Mass/Vol] 18.0 mg/dL Normal 7.0-18.0 [facility] Comment on above: Performed By: #### C BC #### [facility] [address] [place] [address] Dr. Dwight Waters CALCIUMon 06-06-2022 Calcium [Mass/Vol] 9.4 mg/dL Normal 8.5-10.1 [facility] Comment on above: Performed By: #### C MP #### [facility] [address] [place] [address] Dr. Dwight Waters CBC AUTO DIFFon 06-06-2022 BASO # 0.1 103/ul Normal 0.0-0.1 [facility] Comment on above: Performed By: #### U RTPCR #### [facility] [address] [place] [address] Dr. Dwight Waters Basophils/100 WBC (Bld) 0.8 % Normal 0.2-2.0 [facility] Comment on above: Performed By: #### U RTPCR #### [facility] [address] [place] [address] Dr. wDight Waters EO # 0.3 103/ul Normal 0.0-0.7 [facility] Comment on above: Performed By: #### U RTPCR #### [facility] [address] [place] [address] Dr. Dwight Waters Eosinophils/100 WBC (Bld) 3.3 % Normal 0.9-7.0 [facility] Comment on above: Performed By: #### U RTPCR #### [facility] [address] [place] [address] Dr. Dwight Waters Erythrocyte distribution width (RBC) [Ratio] 12.4 % Normal 11.0-15.0 [facility] Comment on above: Performed By: #### U RTPCR #### [facility] [address] [place] [address] Dr. Dwight Waters Hematocrit (Bld) [Volume fraction] 45.1 % Normal 42.0-54.0 [facility] Comment on above: Performed By: #### U RTPCR #### [facility] [address] [place] [address] Dr. Dwight Waters Hemoglobin (Bld) [Mass/Vol] 14.4 g/dL Normal 14.0-18.0 [facility] Comment on above: Performed By: #### U RTPCR #### [facility] [address] [place] [address] Dr. Dwight Waters IG # 0.01 10e3/ul Normal 0.00-0.03 [facility] Comment on above: Performed By: #### U RTPCR #### [facility] [address] [place] [address] Dr. Dwight Waters IG % 0.1 % Normal 0.0-0.5 [facility] Comment on above: Performed By: #### U RTPCR #### [facility] [address] [place] [address] Dr. Dwight Waters LYMPH # 2.2 103/ul Normal 1.2-3.8 [facility] Comment on above: Performed By: #### U RTPCR #### [facility] [address] [place] [address] Dr. Dwight Waters Lymphocytes/100 WBC (Bld) 30.0 % Normal 20.5-60.0 [facility] Comment on above: Performed By: #### U RTPCR #### [facility] [address] [place] [address] Dr. Dwight Waters MANUAL DIFF REQ NO Normal [facility] Comment on above: Performed By: #### U RTPCR #### [facility] [address] [place] [address] Dr. Dwight Waters MCH (RBC) [Entitic mass] 28.2 pg Normal 25.9-34.0 [facility] Comment on above: Performed By: #### U RTPCR #### [facility] [address] [place] [address] Dr. Dwight Waters MCHC (RBC) [Mass/Vol] 31.9 g/dL Normal 29.9-35.2 [facility] Comment on above: Performed By: #### U RTPCR #### [facility] [address] [place] [address] Dr. Dwight Waters MCV (RBC) [Entitic vol] 88.3 fL Normal 80.0-94.0 [facility] Comment on above: Performed By: #### U RTPCR #### [facility] [address] [place] [address] Dr. Dwight Waters MONO # 0.6 103/ul Normal 0.3-0.8 [facility] Comment on above: Performed By: #### U RTPCR #### [facility] [address] [place] [address] Dr. Dwight Waters Monocytes/100 WBC (Bld) 8.2 % Normal 1.7-12.0 [facility] Comment on above: Performed By: #### U RTPCR #### [facility] [address] [place] [address] Dr. Dwight Waters NEUT # 4.3 103/ul Normal 1.4-6.5 [facility] Comment on above: Performed By: #### U RTPCR #### [facility] [address] [address] [address] Dwight Waters Neutrophils/100 WBC (Bld) 57.6 % Normal 43.0-75.0 [facility] Comment on above: Performed By: #### U RTPCR #### [facility] [address] [address] [address] Dwight Waters Platelet mean volume (Bld) [Entitic vol] 9.7 fL Normal 9.5-13.5 [facility] Comment on above: Performed By: #### U RTPCR #### [facility] [address] [place] [address] Dr. Dwight Waters PLT 297 103/ul Normal 150-450 [facility] Comment on above: Performed By: #### U RTPCR #### [facility] [address] [place] [address] Dr. Dwight Waters RBC 5.11 106/ul Normal 4.70-6.10 [facility] Comment on above: Performed By: #### U RTPCR #### [facility] [address] [place] [address] Dr. Dwight Waters WBC 7.5 103/ul Normal 4.0-11.0 [facility] Comment on above: Performed By: #### U RTPCR #### [facility] [address] [place] [address] Dr. Dwight Waters CHLORIDEon 06-06-2022 Chloride [Moles/Vol] 107 mmol/L Normal 98-107 [facility] Comment on above: Performed By: #### C BC #### [facility] [address] [place] [address] Dr. Dwight Waters CO2on 06-06-2022 CO2 [Moles/Vol] 27.4 mmol/L Normal 21.0-32.0 [facility] Comment on above: Performed By: #### C BC #### [facility] [address] [place] [address] Dr. Dwight Waters CREATININEon 06-06-2022 Creatinine [Mass/Vol] 1.20 mg/dL Normal 0.70-1.30 [facility] Comment on above: Performed By: #### C BC #### [facility] [address] [place] [address] Dr. Dwgiht Waters EGFR-AF BRAZILIAN >60 Normal >=60 [facility] Comment on above: Performed By: #### C BC #### [facility] [address] [place] [address] Dr. Dwight Waters EGFR-NON AF BRAZILIAN >60 Normal >=60 [facility] Comment on above: Performed By: #### C BC #### [facility] [address] [place] [address] Dr. Dwight Waters GGTon 06-06-2022 Gamma glutamyl transferase [Catalytic activity/Vol] 29 U/L Normal 15-85 [facility] Comment on above: Performed By: #### C BC #### [facility] [address] [place] [address] Dr. Dwight Waters GLUCOSE BLOODon 06-06-2022 Glucose [Mass/Vol] 112 mg/dL Critically high 74-106 [facility] Comment on above: Performed By: #### C BC #### [facility] [address] [place] [address] Dr. Dwight Waters MAGNESIUMon 06-06-2022 Magnesium [Mass/Vol] 1.3 mg/dL Critically low 1.8-2.4 [facility] Comment on above: Performed By: #### C MP #### [facility] [address] [place] [address] Dr. Dwight Waters NAon 06-06-2022 Sodium [Moles/Vol] 141 mmol/L Normal 136-145 [facility] Comment on above: Performed By: #### C MP #### [facility] [address] [place] [address] Dr. Dwight Waters PHOSPHORUSon 06-06-2022 Phosphate [Mass/Vol] 3.1 mg/dL Normal 2.6-4.7 [facility] Comment on above: Performed By: #### C MP #### [facility] [address] [place] [address] Dr. Dwight Waters POTASSIUMon 06-06-2022 Potassium [Moles/Vol] 4.3 mmol/L Normal 3.5-5.1 [facility] Comment on above: Performed By: #### C BC #### [facility] [address] [address] [address] Dwight Waters SGOTon 06-06-2022 AST [Catalytic activity/Vol] 16 U/L Normal 15-37 [facility] Comment on above: Performed By: #### C BC #### [facility] [address] [address] [address] Dwight Waters SGPTon 06-06-2022 ALT [Catalytic activity/Vol] 50 U/L Normal 16-63 [facility] Comment on above: Performed By: #### C BC #### [facility] [address] [address] [address] Dwight Waters Bacteria identified Cx Nom ( Bld)on 05-21-2022 Bacteria identified Cx Nom (Unsp spec) NO GROWTH DAY 5 OF 5 [facility] Results may be compr omised due to volume of BACT\ALERT bottle exceeding 10mLs . The optimal blood volume is 8-10 mls per aerobic/anaerobic blood culture bottle. [facility] CALCIUMon 05-20-2022 Calcium [Mass/Vol] 9.1 mg/dL 8.6 - 10. 5 mg/dL [facility] CBC,PLATELETSon 05-20-2022 Erythrocyte distribution width (RBC) [Ratio] 12.5 % 10.9 - 14.3 % [facility] Hematocrit (Bld) [Volume fraction] 37.1 % Low 39.6 - 48.8 % [facility] Hemoglobin (Bld) [Mass/Vol] 12.3 g/dL Low 13.4 - 16.8 g/dL [facility] Interpretation and review of laboratory results Abnormal [facility] MCH (RBC) [Entitic mass] 28.9 pg 26.1 - 33.3 pg [facility] MCHC (RBC) [Mass/Vol] 33.2 g/dL 31.9 - 36.5 g/dL [facility] MCV (RBC) [Entitic vol] 87.3 fL 79.0 - 94.5 fL [facility] Platelet mean volume (Bld) [Entitic vol] 9.9 fL 8.7 - 12.3 fL [facility] Platelets (Bld) [#/Vol] 234 10*3/uL 146 - 337 K/uL [facility] RBC (Bld) [#/Vol] 4.25 10*6/uL Low [facility] WBC (Bld) [#/Vol] 6.31 10*3/uL 3.73 - 10. 10 K/uL [facility] CHEM 7 (LYTES,BUN,CREA,GLUC) on 05-20-2022 Anion gap [Moles/Vol] 15 mmol/L 7 - 17 mmol/L [facility] Chloride [Moles/Vol] 111 mmol/L High 98 - 10 8 mmol/L [facility] CO2 [Moles/Vol] 22 mmol/L 21 - 31 mmol/L [facility] Creatinine [Mass/Vol] 1.10 mg/dL 0.70 - 1.30 mg/dL [facility] GFR/1.73 sq M.predicted CKD-EPI (S/P/Bld) [Vol rate/Area] 81 >=60 mL/min/1.73m 2 [facility] Comment on above: Reported eGFR is bas ed on the CKD-EPI 2020 equation using creatinine, age, and sex. Glucose [Mass/Vol] 92 mg/dL 70 - 99 mg/dL [facility] Interpretation and review of laboratory results Abnormal [facility] Osmolality Calc [Osmolality] 302 [facility] Potassium [Moles/Vol] 4.4 mmol/L 3.5 - 5.0 mmol/L [facility] Sodium [Moles/Vol] 144 mmol/L 135 - 145 mmol/L [facility] Urea nitrogen [Mass/Vol] 18 mg/dL 7 - 25 mg/dL [facility] Urea nitrogen/Creatinine [Mass ratio] 16 mg/mg [facility] MAGNESIUM[facility] 05-20-2022 Interpretation and review of laboratory results Abnormal [facility] Magnesium [Mass/Vol] 1.5 mg/dL Low 1.6 - 2 .6 mg/dL [facility] No Panel Informationon 05-20 Interpretation and review of laboratory results Normal [facility] PHOSPHATE, INORGANICon 05-20 Phosphate [Mass/Vol] 3.3 mg/dL 2.2 - 4 .6 mg/dL [facility] RF Unspecified body region V [...] projections of kidneys, ureters, and bladder. FINDINGS: Ux Developer images: Ux Developer radiographs of the abdomen reveal a nonobstructive [...] Contrast refluxes up the ureter to the [place] right kidney that is grossly normal appearing. [...] projections of kidneys, ureters, and bladder. FINDINGS: Ux Developer images: Ux Developer radiographs of the abdomen reveal a nonobstructive [...] Contrast refluxes up the ureter to the [place] right kidney that is grossly normal appearing. [...] have reviewed and approved this report. U [facility] Radiology Study observation (narrative) [facility] RF Unspecified body region V iews during surgeryOrdered By: Lizz Campos on 05-20-2022 [facility] Work Phone: CALCIUMon 05-19-2022 Calcium [Mass/Vol] 9.2 mg/dL 8.6 - 10. 5 mg/dL [facility] Calcium [Mass/Vol] 8.6 mg/dL 8.6 - 10. 5 mg/dL [facility] CBC,PLATELETSon 05-19-2022 Erythrocyte distribution width (RBC) [Ratio] 12.4 % 10.9 - 14.3 % [facility] Hematocrit (Bld) [Volume fraction] 38.0 % Low 39.6 - 48.8 % [facility] Hemoglobin (Bld) [Mass/Vol] 12.0 g/dL Low 13.4 - 16.8 g/dL [facility] Interpretation and review of laboratory results Abnormal [facility] MCH (RBC) [Entitic mass] 28.6 pg 26.1 - 33.3 pg [facility] MCHC (RBC) [Mass/Vol] 31.6 g/dL Low 31.9 - 36.5 g/dL [facility] MCV (RBC) [Entitic vol] 90.5 fL 79.0 - 94.5 fL [facility] Platelet mean volume (Bld) [Entitic vol] 9.7 fL 8.7 - 12.3 fL [facility] Platelets (Bld) [#/Vol] 199 10*3/uL 146 - 337 K/uL [facility] RBC (Bld) [#/Vol] 4.20 10*6/uL Low [facility] WBC (Bld) [#/Vol] 6.81 10*3/uL 3.73 - 10. 10 K/uL [facility] CHEM 7 (LYTES,BUN,CREA,GLUC) on 05-19-2022 Anion gap [Moles/Vol] 13 mmol/L 7 - 17 mmol/L [facility] Chloride [Moles/Vol] 105 mmol/L 98 - 10 8 mmol/L [facility] CO2 [Moles/Vol] 30 mmol/L 21 - 31 mmol/L [facility] Creatinine [Mass/Vol] 1.39 mg/dL High 0.70 - 1.30 mg/dL [facility] GFR/1.73 sq M.predicted CKD-EPI (S/P/Bld) [Vol rate/Area] 61 >=60 mL/min/1.73m 2 [facility] Comment on above: Reported eGFR is bas ed on the CKD-EPI 2020 equation using creatinine, age, and sex. Glucose [Mass/Vol] 121 mg/dL High 70 - 99 mg/dL [facility] Interpretation and review of laboratory results Abnormal [facility] Osmolality Calc [Osmolality] 303 [facility] Potassium [Moles/Vol] 3.8 mmol/L 3.5 - 5.0 mmol/L [facility] Sodium [Moles/Vol] 144 mmol/L 135 - 145 mmol/L [facility] Urea nitrogen [Mass/Vol] 18 mg/dL 7 - 25 mg/dL [facility] Urea nitrogen/Creatinine [Mass ratio] 13 mg/mg [facility] Anion gap [Moles/Vol] 15 mmol/L 7 - 17 mmol/L [facility] Chloride [Moles/Vol] 106 mmol/L 98 - 10 8 mmol/L [facility] CO2 [Moles/Vol] 24 mmol/L 21 - 31 mmol/L [facility] Creatinine [Mass/Vol] 1.46 mg/dL High 0.70 - 1.30 mg/dL [facility] GFR/1.73 sq M.predicted CKD-EPI (S/P/Bld) [Vol rate/Area] 58 Low >=60 mL/min/1.73m 2 [facility] Comment on above: Reported eGFR is bas ed on the CKD-EPI 1 equation using creatinine, age, and sex. Glucose [Mass/Vol] 103 mg/dL High 70 - 99 mg/dL [facility] Interpretation and review of laboratory results Abnormal [facility] Osmolality Calc [Osmolality] 298 [facility] Potassium [Moles/Vol] 3.9 mmol/L 3.5 - 5.0 mmol/L [facility] Sodium [Moles/Vol] 141 mmol/L 135 - 145 mmol/L [facility] Urea nitrogen [Mass/Vol] 21 mg/dL 7 - 25 mg/dL [facility] Urea nitrogen/Creatinine [Mass ratio] 14 mg/mg [facility] MAGNESIUMon 05-19-2022 Magnesium [Mass/Vol] 2.0 mg/dL 1.6 - 2 .6 mg/dL [facility] Magnesium [Mass/Vol] 1.7 mg/dL 1.6 - 2 .6 mg/dL [facility] No Panel Informationon 05-19 Interpretation and review of laboratory results Normal [facility] Interpretation and review of laboratory results Normal [facility] PHOSPHATE, INORGANICon 05-19 Phosphate [Mass/Vol] 3.0 mg/dL 2.2 - 4 .6 mg/dL [facility] Phosphate [Mass/Vol] 2.7 mg/dL 2.2 - 4 .6 mg/dL [facility] CALCIUMon 05-18-2022 Calcium [Mass/Vol] 9.1 mg/dL 8.6 - 10. 5 mg/dL [facility] CBC,PLATELETSon 05-18-2022 Erythrocyte distribution width (RBC) [Ratio] 12.5 % 10.9 - 14.3 % [facility] Hematocrit (Bld) [Volume fraction] 37.3 % Low 39.6 - 48.8 % [facility] Hemoglobin (Bld) [Mass/Vol] 11.9 g/dL Low 13.4 - 16.8 g/dL [facility] Interpretation and review of laboratory results Abnormal [facility] MCH (RBC) [Entitic mass] 28.9 pg 26.1 - 33.3 pg [facility] MCHC (RBC) [Mass/Vol] 31.9 g/dL 31.9 - 36.5 g/dL [facility] MCV (RBC) [Entitic vol] 90.5 fL 79.0 - 94.5 fL [facility] Platelet mean volume (Bld) [Entitic vol] 10.1 fL 8.7 - 12.3 fL [facility] Platelets (Bld) [#/Vol] 189 10*3/uL 146 - 337 K/uL [facility] RBC (Bld) [#/Vol] 4.12 10*6/uL Low [facility] WBC (Bld) [#/Vol] 10.19 10*3/uL High 3.73 - 10 .10 K/uL [facility] CHEM 7 (LYTES,BUN,CREA,GLUC) on 05-18-2022 Anion gap [Moles/Vol] 13 mmol/L 7 - 17 mmol/L [facility] Chloride [Moles/Vol] 102 mmol/L 98 - 10 8 mmol/L [facility] CO2 [Moles/Vol] 26 mmol/L 21 - 31 mmol/L [facility] Creatinine [Mass/Vol] 1.91 mg/dL High 0.70 - 1.30 mg/dL [facility] GFR/1.73 sq M.predicted CKD-EPI (S/P/Bld) [Vol rate/Area] 42 Low >=60 mL/min/1.73m 2 [facility] Comment on above: Reported eGFR is bas ed on the CKD-EPI 2020 equation using creatinine, age, and sex. Glucose [Mass/Vol] 158 mg/dL High 70 - 99 mg/dL [facility] Osmolality Calc [Osmolality] 297 [facility] Potassium [Moles/Vol] 4.0 mmol/L 3.5 - 5.0 mmol/L [facility] Sodium [Moles/Vol] 137 mmol/L 135 - 145 mmol/L [facility] Urea nitrogen [Mass/Vol] 30 mg/dL High 7 - 25 mg/dL [facility] Urea nitrogen/Creatinine [Mass ratio] 16 mg/mg [facility] CHEM 7 (LYTES,BUN,CREA,GLUC) Ordered By: Tamiko Thapa on 05-18-2022 Anion gap [Moles/Vol] 13 mmol/L 7 - 17 mmol/L [facility] Chloride [Moles/Vol] 104 mmol/L 98 - 10 8 mmol/L [facility] CO2 [Moles/Vol] 26 mmol/L 21 - 31 mmol/L [facility] Creatinine [Mass/Vol] 2.96 mg/dL High 0.70 - 1.30 mg/dL [facility] GFR/1.73 sq M.predicted CKD-EPI (S/P/Bld) [Vol rate/Area] 25 Low >=60 mL/min/1.73m 2 [facility] Comment on above: Reported eGFR is bas ed on the CKD-EPI 2020 equation using creatinine, age, and sex. Glucose [Mass/Vol] 136 mg/dL High 70 - 99 mg/dL [facility] Interpretation and review of laboratory results Abnormal [facility] Osmolality Calc [Osmolality] 304 [facility] Potassium [Moles/Vol] 4.2 mmol/L 3.5 - 5.0 mmol/L [facility] Sodium [Moles/Vol] 139 mmol/L 135 - 145 mmol/L [facility] Urea nitrogen [Mass/Vol] 41 mg/dL High 7 - 25 mg/dL [facility] Urea nitrogen/Creatinine [Mass ratio] 14 mg/mg [facility] MAGNESIUMon 05-18-2022 Magnesium [Mass/Vol] 2.2 mg/dL 1.6 - 2 .6 mg/dL [facility] Interpretation and review of laboratory results Normal [facility] Magnesium [Mass/Vol] 1.7 mg/dL 1.6 - 2 .6 mg/dL [facility] No Panel Informationon 05-18 Interpretation and review of laboratory results Abnormal [facility] Interpretation and review of laboratory results Normal [facility] PHOSPHATE, INORGANICon 05-18 Phosphate [Mass/Vol] 2.0 mg/dL Low 2.2 - 4 .6 mg/dL [facility] Interpretation and review of laboratory results Normal [facility] Phosphate [Mass/Vol] 2.8 mg/dL 2.2 - 4 .6 mg/dL [facility] PT,INR,PTTon 05-18-2022 aPTT Coag (PPP) [Time] 31.0 s [facility] INR Coag (Bld) [Relative time] 1.1 {INR} [facility] Interpretation and review of laboratory results Abnormal [facility] PT Coag (PPP) [Time] 14.4 s High [facility] URINE CULTUREOrdered By: Sylvia Campos on 05-18-2022 Bacteria identified Cx Nom (Unsp spec) No Growth [facility] CBC,PLATELETSon 05-17-2022 Erythrocyte distribution width (RBC) [Ratio] 12.8 % 10.9 - 14.3 % [facility] Hematocrit (Bld) [Volume fraction] 42.8 % 39.6 - 48.8 % [facility] Hemoglobin (Bld) [Mass/Vol] 13.3 g/dL Low 13.4 - 16.8 g/dL [facility] Interpretation and review of laboratory results Abnormal [facility] MCH (RBC) [Entitic mass] 28.9 pg 26.1 - 33.3 pg [facility] MCHC (RBC) [Mass/Vol] 31.1 g/dL Low 31.9 - 36.5 g/dL [facility] MCV (RBC) [Entitic vol] 92.8 fL 79.0 - 94.5 fL [facility] Platelet mean volume (Bld) [Entitic vol] 10.3 fL 8.7 - 12.3 fL [facility] Platelets (Bld) [#/Vol] 188 10*3/uL 146 - 337 K/uL [facility] RBC (Bld) [#/Vol] 4.61 10*6/uL [facility] WBC (Bld) [#/Vol] 16.61 10*3/uL High 3.73 - 10 .10 K/uL [facility] CHEM 7 (LYTES,BUN,CREA,GLUC) Ordered By: Kaylah Mc on 05-17-2022 Anion gap [Moles/Vol] 15 mmol/L 7 - 17 mmol/L [facility] Chloride [Moles/Vol] 103 mmol/L 98 - 10 8 mmol/L [facility] CO2 [Moles/Vol] 23 mmol/L 21 - 31 mmol/L [facility] Creatinine [Mass/Vol] 5.95 mg/dL High 0.70 - 1.30 mg/dL [facility] GFR/1.73 sq M.predicted CKD-EPI (S/P/Bld) [Vol rate/Area] 11 Low >=60 mL/min/1.73m 2 [facility] Comment on above: Reported eGFR is bas ed on the CKD-EPI 2020 equation using creatinine, age, and sex. Glucose [Mass/Vol] 165 mg/dL High 70 - 99 mg/dL [facility] Interpretation and review of laboratory results Abnormal [facility] Osmolality Calc [Osmolality] 305 [facility] Potassium [Moles/Vol] 4.6 mmol/L 3.5 - 5.0 mmol/L [facility] Sodium [Moles/Vol] 136 mmol/L 135 - 145 mmol/L [facility] Urea nitrogen [Mass/Vol] 52 mg/dL High 7 - 25 mg/dL [facility] Urea nitrogen/Creatinine [Mass ratio] 9 mg/mg [facility] CHEM 7 (LYTES,BUN,CREA,GLUC) Ordered By: Kehinde Gutierrez on 05-17-2022 Anion gap [Moles/Vol] 24 mmol/L High 7 - 17 mmol/L [facility] Chloride [Moles/Vol] 100 mmol/L 98 - 10 8 mmol/L [facility] CO2 [Moles/Vol] 16 mmol/L Low 21 - 31 mmol/L [facility] Creatinine [Mass/Vol] 8.08 mg/dL High 0.70 - 1.30 mg/dL [facility] GFR/1.73 sq M.predicted CKD-EPI (S/P/Bld) [Vol rate/Area] 7 Low >=60 mL/min/1.73m 2 [facility] Comment on above: Reported eGFR is bas ed on the CKD-EPI 2020 equation using creatinine, age, and sex. Glucose [Mass/Vol] 164 mg/dL High 70 - 99 mg/dL [facility] Interpretation and review of laboratory results Abnormal [facility] Osmolality Calc [Osmolality] 305 [facility] Potassium [Moles/Vol] 5.0 mmol/L 3.5 - 5.0 mmol/L [facility] Sodium [Moles/Vol] 135 mmol/L 135 - 145 mmol/L [facility] Urea nitrogen [Mass/Vol] 56 mg/dL High 7 - 25 mg/dL [facility] Urea nitrogen/Creatinine [Mass ratio] 7 mg/mg [facility] LAVENDER TOP TUBEon 05-17-20 [facility] MAGNESIUMon 05-17-2022 Interpretation and review of laboratory results Normal [facility] Magnesium [Mass/Vol] 1.8 mg/dL 1.6 - 2 .6 mg/dL [facility] Interpretation and review of laboratory results Normal [facility] Magnesium [Mass/Vol] 1.6 mg/dL 1.6 - 2 .6 mg/dL [facility] No Panel Informationon 05-17 [facility] PHOSPHATE, INORGANICon 05-17 Interpretation and review of laboratory results Abnormal [facility] Phosphate [Mass/Vol] 4.9 mg/dL High 2.2 - 4 .6 mg/dL [facility] PT,INR,PTTon 05-17-2022 aPTT Coag (PPP) [Time] 33.0 s [facility] INR Coag (Bld) [Relative time] 1.3 {INR} High [facility] Interpretation and review of laboratory results Abnormal [facility] PT Coag (PPP) [Time] 15.7 s High [facility] IMPRESS[facility]: [...] Stable cardiomegaly. IMPRESSION IMPRESSION: No acute findings. [facility] Radiology Study observation (narrative) [facility] Portable XR Chest ViewsOrder ed By: Raheem Sanz on 05-17-2022 [facility] Work Phone: URINALYSISOrdered By: Michael patel Ma on 05-17-2022 Appearance (U) Cloudy Abnormal Clear [facility] Comment on above: Results may be inacc urate due to color interference. Clinical correlation recommended. Bacteria LM Ql (Urine sed) ABSENT ABSENT [facility] Color (U) Red Abnormal Yellow [facility] Comment on above: Results may be inacc urate due to color interference. Clinical correlation recommended. Epithelial cells.squamous LM Ql (Urine sed) ABSENT 1/hpf = 1+, 2-5/hpf = 2+, 0/hpf = 0+, ABSENT [facility] Glucose Test strip (U) [Mass/Vol] Negative Negative [facility] Comment on above: Results may be inacc urate due to color interference. Clinical correlation recommended. Interpretation and review of laboratory results Abnormal [facility] Ketones (U) [Mass/Vol] Trace Abnormal Negative [facility] Comment on above: Results may be inacc urate due to color interference. Clinical correlation recommended. Leukocyte esterase Test strip Ql (U) Large Abnormal Negative [facility] Comment on above: Results may be inacc urate due to color interference. Clinical correlation recommended. Nitrite Ql (U) Negative Negative [facility] Comment on above: Results may be inacc urate due to color interference. Clinical correlation recommended. pH (U) 5.0 [pH] 5.0 - 7.0 [facility] Comment on above: Results may be inacc urate due to color interference. Clinical correlation recommended. Protein (U) [Mass/Vol] mg/dL Abnormal Negative [facility] Comment on above: Results may be inacc urate due to color interference. Clinical correlation recommended. RBC (U) [#/Vol] Large Abnormal Negative [facility] Comment on above: Results may be inacc urate due to color interference. Clinical correlation recommended. RBC LM.HPF (Urine sed) [#/Area] /[HPF] Abnormal 0 - 2 /HPF [facility] Specific gravity (U) [Rel density] 1.016 [facility] Comment on above: Results may be inacc urate due to color interference. Clinical correlation recommended. Urobilinogen (U) [Mass/Vol] 0.2 E.U./dL 0.2 E.U/dL, 1.0 E.U/dL [facility] Comment on above: Results may be inacc urate due to color interference. Clinical correlation recommended. WBC LM.HPF (Urine sed) [#/Area] /[HPF] Abnormal 0 - 5 /HPF [facility] URINE CULTUREOrdered By: Tyler Tiwari on 05-17-2022 Bacteria identified Cx Nom (Unsp spec) No Growth [facility] CBC,PLATELETSon 05-16-2022 Erythrocyte distribution width (RBC) [Ratio] 12.9 % 10.9 - 14.3 % [facility] Hematocrit (Bld) [Volume fraction] 46.5 % 39.6 - 48.8 % [facility] Hemoglobin (Bld) [Mass/Vol] 14.7 g/dL 13.4 - 16.8 g/dL [facility] Interpretation and review of laboratory results Abnormal [facility] MCH (RBC) [Entitic mass] 28.3 pg 26.1 - 33.3 pg [facility] MCHC (RBC) [Mass/Vol] 31.6 g/dL Low 31.9 - 36.5 g/dL [facility] MCV (RBC) [Entitic vol] 89.6 fL 79.0 - 94.5 fL [facility] Platelet mean volume (Bld) [Entitic vol] 10.3 fL 8.7 - 12.3 fL [facility] Platelets (Bld) [#/Vol] 188 10*3/uL 146 - 337 K/uL [facility] RBC (Bld) [#/Vol] 5.19 10*6/uL [facility] WBC (Bld) [#/Vol] 12.55 10*3/uL High 3.73 - 10 .10 K/uL [facility] CHEM 7 (LYTES,BUN,CREA,GLUC) Ordered By: Alma Pena on 05-16-2022 Anion gap [Moles/Vol] 14 mmol/L 7 - 17 mmol/L [facility] Chloride [Moles/Vol] 103 mmol/L 98 - 10 8 mmol/L [facility] CO2 [Moles/Vol] 22 mmol/L 21 - 31 mmol/L [facility] Creatinine [Mass/Vol] 6.09 mg/dL High 0.70 - 1.30 mg/dL [facility] GFR/1.73 sq M.predicted CKD-EPI (S/P/Bld) [Vol rate/Area] 10 Low >=60 mL/min/1.73m 2 [facility] Comment on above: Reported eGFR is bas ed on the CKD-EPI 2021 equation using creatinine, age, and sex. Glucose [Mass/Vol] 134 mg/dL High 70 - 99 mg/dL [facility] Interpretation and review of laboratory results Abnormal [facility]ality] [facility] Potassium [Moles/Vol] 4.9 mmol/L 3.5 - 5.0 mmol/L [facility] Sodium [Moles/Vol] 134 mmol/L Low 135 - 145 mmol/L [facility] Comment on above: Results inconsistent with previous results Urea nitrogen [Mass/Vol] 49 mg/dL High 7 - 25 mg/dL [facility] Urea nitrogen/Creatinine [Mass ratio] 8 mg/mg [facility] CHEM 7 (LYTES,BUN,CREA,GLUC) on 05-16-2022 Anion gap [Moles/Vol] 17 mmol/L 7 - 17 mmol/L [facility] Chloride [Moles/Vol] 106 mmol/L 98 - 10 8 mmol/L [facility] CO2 [Moles/Vol] 22 mmol/L 21 - 31 mmol/L [facility] Creatinine [Mass/Vol] 5.23 mg/dL High 0.70 - 1.30 mg/dL [facility] GFR/1.73 sq M.predicted CKD-EPI (S/P/Bld) [Vol rate/Area] 13 Low >=60 mL/min/1.73m 2 [facility] Comment on above: Reported eGFR is bas ed on the CKD-EPI 1 equation using creatinine, age, and sex. Glucose [Mass/Vol] 116 mg/dL High 70 - 99 mg/dL [facility] Interpretation and review of laboratory results Abnormal [facility]ality Calc [facility]olality] [facility] Potassium [Moles/Vol] 4.6 mmol/L 3.5 - 5.0 mmol/L [facility] Sodium [Moles/Vol] 140 mmol/L 135 - 145 mmol/L [facility] Urea nitrogen [Mass/Vol] 42 mg/dL High 7 - 25 mg/dL [facility] Urea nitrogen/Creatinine [Mass ratio] 8 mg/mg [facility] EXTRA MICROon 05-16-2022 [facility] LT BLUE TOP TUBEon [facility] LYTES (NA, K, CL) - URINE - RANDOMon 05-16-2022 Chloride (24H U) [Moles/Vol] 68 mmol/L [facility] Potassium (24H U) [Moles/Vol] 36.7 mmol/L [facility] Sodium (24H U) [Moles/Vol] 55 mmol/L [facility] The reference range has not been established for random urine specimens. The test result should be integrated into the clinical context for interpretation. [facility] MAGNESIUMon 05-16-2022 Interpretation and review of laboratory results Normal [facility] Magnesium [Mass/Vol] 1.7 mg/dL 1.6 - 2 .6 mg/dL [facility] NOVEL CORONAVIRUS PCROrdered By: Edson Candelario on 05-16-2022 SARS-CoV-2 (COVID-19) RNA ESTELITA+probe Ql (Unsp spec) Not detected NOT DETECTED [facility] Comment on above: [facility] Negative results [...] use authorization for use by authorized laboratories. [facility] No Panel Informationon 05-16 [facility] OSMOLALITY, URINEon 05-16-20 Interpretation and review of laboratory results Normal [facility] Osmolality (U) [Osmolality] 320 mosm/kg [facility] The reference range has not been established for random urine specimens. The test result should be integrated into the clinical context for interpretation. [facility] PROCALCITONINon 05-16-2022 Interpretation and review of laboratory results Normal [facility] Procalcitonin [Mass/Vol] 0.18 ng/mL <0.50 [facility] Comment on above: Procalcitonin is [...] and trend procalcitonin in various clinical settings. [email or web address] Two common cutoffs associated with bacterial infections are as follows. Respiratory tract infections: >0.25 ng/mL Sepsis/septic shock: >0.5 ng/mL Procalcitonin should not be used alone as a diagnostic tool, however. All procalcitonin results should be interpreted in association with the patients clinical condition and all laboratory findings. [facility] PT,INR,PTTon 05-16-2022 aPTT Coag (PPP) [Time] 30.3 s [facility] INR Coag (Bld) [Relative time] 1.1 {INR} [facility] Interpretation and review of laboratory results Normal [facility] PT Coag (PPP) [Time] 14.1 s [facility] SARS-CoV-2 (COVID-19) RNA NA A+probe Ql (Unsp spec)Ordered By: Edson Candelario on 05-16-2022 Interpretation and review of laboratory results [facility] TACROLIMUS LEVEL, TROUGH (IL E DRUG LEVEL)Ordered By: Mariama Nick on 05-16-2022 Interpretation and review of laboratory results [facility] Tacrolimus (Bld) [Mass/Vol] 4.1 ng/mL Bone Marrow Transplant: 4.0-12.0, Therapeutic: 5.0-15.0 [facility] Method performed is a chemiluminescent microparticle immunoasssay on the [employer] i2000. The range is based on experience at [facility] and users should be aware that target concentrations vary widely depending on concomitant therapy, time post-transplant, and desired degree of immunosuppression. [facility] URINE PROTEIN/CREA RATIO, RA Baljit 05-16-2022 Creatinine (24H U) [Mass/Vol] 59.82 mg/dL [facility] Protein Unsp time (U) [Mass/Vol] 111 mg/dL [facility] Protein/Creatinine (U) [Mass ratio] 1.856 mg/g [facility] US for transplanted kidney l [...] appearing vascular flow in the transplant kidney. [facility] Radiology Study observation (narrative) [facility] US for transplanted kidney l imitedOrdered By: Rosendo Matute on 05-16-2022 [facility] Work Phone: CBC AND ELECTRONIC DIFFon Basophils (Bld) [#/Vol] 10*3/uL 0.00 - 0.09 K/uL [facility] Basophils/100 WBC (Bld) 0.2 % [facility] Differential cell count method Nom (Bld) Electronic Differential [facility] Eosinophils (Bld) [#/Vol] 10*3/uL 0.00 - 0.48 K/uL [facility] Eosinophils/100 WBC (Bld) 0.0 % [facility] Erythrocyte distribution width (RBC) [Ratio] 12.8 % 10.9 - 14.3 % [facility] Hematocrit (Bld) [Volume fraction] 46.0 % 39.6 - 48.8 % [facility] Hemoglobin (Bld) [Mass/Vol] 14.6 g/dL 13.4 - 16.8 g/dL [facility] Immature granulocytes (Bld) [#/Vol] 0.07 10*3/uL <=0.08 [facility] Immature granulocytes/100 WBC (Bld) 0.4 % [facility] Interpretation and review of laboratory results Abnormal [facility] Lymphocytes (Bld) [#/Vol] 1.49 10*3/uL 0.83 - 3.57 K/uL [facility] Lymphocytes/100 WBC (Bld) 9.4 % [facility] MCH (RBC) [Entitic mass] 28.2 pg 26.1 - 33.3 pg [facility] MCHC (RBC) [Mass/Vol] 31.7 g/dL Low 31.9 - 36.5 g/dL [facility] MCV (RBC) [Entitic vol] 89.0 fL 79.0 - 94.5 fL [facility] Monocytes (Bld) [#/Vol] 1.45 10*3/uL High 0.24 - 0.93 K/uL [facility] Monocytes/100 WBC (Bld) 9.2 % [facility] Neutrophils (Bld) [#/Vol] 12.77 10*3/uL High 1.57 - 6.19 K/uL [facility] Nucleated RBC/100 WBC (Bld) [Ratio] 0.0 % <=0.2 /100 WBC [facility] Platelet mean volume (Bld) [Entitic vol] 9.9 fL 8.7 - 12.3 fL [facility] Platelets (Bld) [#/Vol] 250 10*3/uL 146 - 337 K/uL [facility] RBC (Bld) [#/Vol] 5.17 10*6/uL [facility] Segmented neutrophils/100 WBC (Bld) 80.8 % [facility] WBC (Bld) [#/Vol] 15.81 10*3/uL High 3.73 - 10 .10 K/uL [facility] CBC AUTO DIFFon 05-15-2022 BASO # 0.0 103/ul Normal 0.0-0.1 [facility] Comment on above: Performed By: #### C BC #### [facility] [address] [place] [address] Dr. Dwight Waters Basophils/100 WBC (Bld) 0.3 % Normal 0.2-2.0 [facility] Comment on above: Performed By: #### C BC #### [facility] [address] [place] [address] Dr. Dwight Waters EO # 0.1 103/ul Normal 0.0-0.7 [facility] Comment on above: Performed By: #### C BC #### [facility] [address] [place] [address] Dr. Dwight Waters Eosinophils/100 WBC (Bld) 0.8 % Critically low 0.9-7.0 [facility] Comment on above: Performed By: #### C BC #### [facility] [address] [place] [address] Dr. Dwight Waters Erythrocyte distribution width (RBC) [Ratio] 12.7 % Normal 11.0-15.0 [facility] Comment on above: Performed By: #### C BC #### [facility] [address] [place] [address] Dr. Dwight Waters Hematocrit (Bld) [Volume fraction] 43.5 % Normal 42.0-54.0 [facility] Comment on above: Performed By: #### C BC #### [facility] [address] [place] [address] Dr. Dwight Waters Hemoglobin (Bld) [Mass/Vol] 14.4 g/dL Normal 14.0-18.0 [facility] Comment on above: Performed By: #### C BC #### [facility] [address] [place] [address] Dr. Dwight Waters IG # 0.02 10e3/ul Normal 0.00-0.03 [facility] Comment on above: Performed By: #### C BC #### [facility] [address] [place] [address] Dr. Dwight Waters IG % 0.2 % Normal 0.0-0.5 [facility] Comment on above: Performed By: #### C BC #### [facility] [address] [place] [address] Dr. Dwight Waters LYMPH # 1.5 103/ul Normal 1.2-3.8 [facility] Comment on above: Performed By: #### C BC #### [facility] [address] [place] [address] Dr. Dwight Waters Lymphocytes/100 WBC (Bld) 12.5 % Critically low 20.5-60.0 [facility] Comment on above: Performed By: #### C BC #### [facility] [address] [place] [address] Dr. Dwight Waters MANUAL DIFF REQ NO Normal [facility] Comment on above: Performed By: #### C BC #### [facility] [address] [place] [address] Dr. Dwight Waters MCH (RBC) [Entitic mass] 28.6 pg Normal 25.9-34.0 [facility] Comment on above: Performed By: #### C BC #### [facility] [address] [place] [address] Dr. Dwight Waters MCHC (RBC) [Mass/Vol] 33.1 g/dL Normal 29.9-35.2 [facility] Comment on above: Performed By: #### C BC #### [facility] [address] [place] [address] Dr. Dwight Waetrs MCV (RBC) [Entitic vol] 86.3 fL Normal 80.0-94.0 [facility] Comment on above: Performed By: #### C BC #### [facility] [address] [place] [address] Dr. Dwight Waters MONO # 1.0 103/ul Critically high 0.3-0.8 [facility] Comment on above: Performed By: #### C BC #### [facility] [address] [place] [address] Dr. Dwight Waters Monocytes/100 WBC (Bld) 8.2 % Normal 1.7-12.0 [facility] Comment on above: Performed By: #### C BC #### [facility] [address] [place] [address] Dr. Dwight Waters NEUT # 9.1 103/ul Critically high 1.4-6.5 [facility] Comment on above: Performed By: #### C BC #### [facility] [address] [place] [address] Dr. Dwight Waters Neutrophils/100 WBC (Bld) 78.0 % Critically high 43.0-75.0 [facility] Comment on above: Performed By: #### C BC #### [facility] [address] [place] [address] Dr. Dwight Waters Platelet mean volume (Bld) [Entitic vol] 9.8 fL Normal 9.5-13.5 [facility] Comment on above: Performed By: #### C BC #### [facility] [address] [place] [address] Dr. Dwight Waters PLT 251 103/ul Normal 150-450 [facility] Comment on above: Performed By: #### C BC #### [facility] [address] [place] [address] Dr. Dwight Waters RBC 5.04 106/ul Normal 4.70-6.10 [facility] Comment on above: Performed By: #### C BC #### [facility] [address] [place] [address] Dr. Dwight Waters WBC 11.6 103/ul Critically high 4.0-11.0 [facility] Comment on above: Performed By: #### C BC #### [facility] [address] [place] [address] Dr. Dwight Waters CHEM 6 (LYTES, BUN CREA)on 0 05-15-2022 Anion gap [Moles/Vol] 12 mmol/L 7 - 17 mmol/L [facility] Chloride [Moles/Vol] 105 mmol/L 98 - 10 8 mmol/L [facility] CO2 [Moles/Vol] 26 mmol/L 21 - 31 mmol/L [facility] Creatinine [Mass/Vol] 2.85 mg/dL High 0.70 - 1.30 mg[facility]1.73 sq M.predicted CKD-EPI (S/P/Bld) [Vol rate/Area] 26 Low >=60 mL/min/1.73m 2 [facility] Comment on above: Reported eGFR is bas ed on the CKD-EPI 2020 equation using creatinine, age, and sex. Potassium [Moles/Vol] 4.6 mmol/L 3.5 - 5.0 mmol/L [facility] Sodium [Moles/Vol] 138 mmol/L 135 - 145 mmol/L [facility] Urea nitrogen [Mass/Vol] 32 mg/dL High 7 - 25 mg/dL [facility] Urea nitrogen/Creatinine [Mass ratio] 11 mg/mg [facility] CT ABD/PELVIS WO CONon 05-15 [...] transplanted kidney with moderate right-sided hydronephrosis. Atrophic [place] kidneys with moderate right-sided hydronephrosis. Multiple nonobstructive [...] transplanted kidney with moderate right-sided hydronephrosis. Atrophic [place] kidneys with moderate right-sided hydronephrosis. Multiple nonobstructive right renal calculi measuring up to 8 mm. FOLLOW-UP: Follow-up as clinically indicated. Electronically authenticated by: LYNDSAY JEAN Date: 2022-05-15 05:04 Normal [facility] Covid-19 PCR (CVDTBH)on 04-30 SARS-CoV-2 (COVID-19) RNA ESTELITA+probe Ql (Unsp spec) Not detected Normal NOT DETECTED [facility] Comment on above: Result Comment: When [...] for this test is supported by the [place] of [employer] and Human Service's declaration that [...] used). Performed By: #### U RTPCR #### [facility] [address] [place] [address] Dr. Dwight Waters GLUCOSEon 05-15-2022 Glucose [Mass/Vol] 141 mg/dL High 70 - 99 mg[facility] GOLD TOP TUBEon 05-15-2022 [facility] HEPATIC FUNCTION PANELon Albumin [Mass/Vol] 4.3 g/dL 3.5 - 5.0 g/dL [facility] ALP [Catalytic activity/Vol] 85 U/L 32 - 126 U/L [facility] ALT [Catalytic activity/Vol] 13 U/L 10 - 52 U/L [facility] AST [Catalytic activity/Vol] 15 U/L 10 - 39 U/L [facility] Bilirubin [Mass/Vol] 0.8 mg/dL <1.5 [facility] Bilirubin.direct [Mass/Vol] 0.2 mg/dL <0.3 [facility] Interpretation and review of laboratory results Normal [facility] Protein [Mass/Vol] 7.3 g/dL 6.4 - 8.3 g/dL [facility] LIPASEon 05-15-2022 Lipase [Catalytic activity/Vol] 8 U/L Low 11 - 82 U/L [facility] No Panel Informationon 05-15 Interpretation and review of laboratory results Abnormal [facility] PROF 14(COMP METB)on 022 Albumin [Mass/Vol] 3.8 g/dL Normal 3.4-5.0 [facility] Comment on above: Performed By: #### U RTPCR #### [facility] [address] [place] [address] Dr. Dwight Waters Albumin/Globulin [Mass ratio] 1.1 {ratio} Normal [facility] Comment on above: Performed By: #### U RTPCR #### [facility] [address] [place] [address] Dr. Dwight Waters ALP [Catalytic activity/Vol] 92 U/L Normal 46-116 [facility] Comment on above: Performed By: #### U RTPCR #### [facility] [address] [place] [address] Dr. Dwight Waters ALT [Catalytic activity/Vol] 25 U/L Normal 16-63 [facility] Comment on above: Performed By: #### U RTPCR #### [facility] [address] [place] [address] Dr. Dwight Waters Anion gap [Moles/Vol] 14.6 mmol/L Normal [facility] Comment on above: Performed By: #### U RTPCR #### [facility] [address] [place] [address] Dr. Dwight Waters AST [Catalytic activity/Vol] 17 U/L Normal 15-37 [facility] Comment on above: Performed By: #### U RTPCR #### [facility] [address] [place] [address] Dr. Dwight Waters Bilirubin [Mass/Vol] 0.6 mg/dL Normal 0.2-1.0 [facility] Comment on above: Performed By: #### U RTPCR #### [facility] [address] [address] [address] Dwight Waters Calcium [Mass/Vol] 9.9 mg/dL Normal 8.5-10.1 [facility] Comment on above: Performed By: #### U RTPCR #### [facility] [address] [address] [address] Dwight Waters Chloride [Moles/Vol] 106 mmol/L Normal 98-107 [facility] Comment on above: Performed By: #### U RTPCR #### [facility] [address] [address] [address] Dwight Waters CO2 [Moles/Vol] 24.2 mmol/L Normal 21.0-32.0 [facility] Comment on above: Performed By: #### U RTPCR #### [facility] [address] [address] [address] Dwight Waters Creatinine [Mass/Vol] 1.58 mg/dL Critically high 0.70-1.30 [facility] Comment on above: Performed By: #### U RTPCR #### [facility] [address] [address] [address] Dwight Waters EGFR-AF BRAZILIAN 56 mL/min/1.73m2 Critically low >=60 [facility] Comment on above: Performed By: #### U RTPCR #### [facility] [address] [address] [address] Dwight Waters EGFR-NON AF BRAZILIAN 46 mL/min/1.73m2 Critically low >=60 [facility] Comment on above: Performed By: #### U RTPCR #### [facility] [address] [address] [address] Dwight Waters Globulin (S) [Mass/Vol] 3.5 g/dL Normal [facility] Comment on above: Performed By: #### U RTPCR #### [facility] [address] [address] [address] Dwight Waters Glucose [Mass/Vol] 162 mg/dL Critically high 74-106 [facility] Comment on above: Performed By: #### U RTPCR #### [facility] [address] [address] [address] Dwight Waters Potassium [Moles/Vol] 3.8 mmol/L Normal 3.5-5.1 [facility] Comment on above: Performed By: #### U RTPCR #### [facility] [address] [address] [address] Dwight Waters Protein [Mass/Vol] 7.3 g/dL Normal 6.4-8.2 [facility] Comment on above: Performed By: #### U RTPCR #### [facility] [address] [address] [address] Dwight Waters Sodium [Moles/Vol] 141 mmol/L Normal 136-145 [facility] Comment on above: Performed By: #### U RTPCR #### [facility] [address] [address] [address] Dwight Waters Urea nitrogen [Mass/Vol] 22.0 mg/dL Critically high 7.0-18.0 [facility] Comment on above: Performed By: #### U RTPCR #### [facility] [address] [address] [address] Dwight Waters Urea nitrogen/Creatinine [Mass ratio] 13.9 mg/mg Normal [facility] Comment on above: Performed By: #### U RTPCR #### [facility] [address] [address] [address] Dwight Waters Portable XR Chest Viewson [...] chest. IMPRESSION IMPRESSION: No acute cardiopulmonary disease [facility] Radiology Study observation (narrative) [facility] Portable XR Chest ViewsOrder ed By: Vladislav Omer on 05-15-2022 [facility] URINE DIPSTICK; REFLEX MICRO SCOPY; REFLEX CULTURE PERFORMABLEon 05-15-2022 Appearance (U) Clear Clear [facility] Color (U) Yellow Yellow [facility] Glucose Test strip (U) [Mass/Vol] 100 mg/dL Abnormal Negative [facility] Interpretation and review of laboratory results Abnormal [facility] Ketones (U) [Mass/Vol] Negative Negative [facility] Leukocyte esterase Test strip Ql (U) Large Abnormal Negative [facility] Nitrite Ql (U) Negative Negative [facility] pH (U) 6.0 [pH] 5.0 - 7.0 [facility] Protein (U) [Mass/Vol] 100 mg/dL Abnormal Negative [facility] RBC (U) [#/Vol] Large Abnormal Negative [facility] Specific gravity (U) [Rel density] 1.010 [facility] Urobilinogen (U) [Mass/Vol] 0.2 E.U./dL 0.2 E.U/dL, 1.0 E.U/dL [facility] URINE MICROSCOPIC WITH REFLE X TO CULTUREOrdered By: Rey Bro on 05-15-2022 Bacteria LM Ql (Urine sed) ABSENT ABSENT [facility] Epithelial cells.squamous LM Ql (Urine sed) ABSENT 1/hpf = 1+, 2-5/hpf = 2+, 0/hpf = 0+, ABSENT [facility] Interpretation and review of laboratory results Abnormal [facility] RBC LM.HPF (Urine sed) [#/Area] /[HPF] Abnormal 0 - 2 /HPF [facility] WBC LM.HPF (Urine sed) [#/Area] [...] 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 The [place] kidneys are progressively atrophic bilaterally compared to [...] of 06/14/2020 are no longer present. The [place] distal right ureter is decompressed beyond this [...] with surgical history for renal graft and [place] right urinary drainage, as a discrete ureteroneocystostomy is not identified, and the graft may be draining via a ureteroureterostomy. Urology consultation recommended. 3. The [place] kidneys are bilaterally atrophic, with right renal sinus calcifications consistent with nonobstructing right [place] renal calculi up to 6 mm. Normal [facility] CBC AUTO DIFFon 05-11-2022 BASO # 0.1 103/ul Normal 0.0-0.1 [facility] Comment on above: Performed By: #### U RTPCR #### [facility] [address] [place], [place] [address] Dr. Dwight Waters Basophils/100 WBC (Bld) 0.8 % Normal 0.2-2.0 [facility] Comment on above: Performed By: #### U RTPCR #### [facility] [address] [place], [place] [address] Dr. Dwight Waters EO # 0.2 103/ul Normal 0.0-0.7 [facility] Comment on above: Performed By: #### U RTPCR #### [facility] [address] [place] [address] Dr. Dwight Waters Eosinophils/100 WBC (Bld) 2.5 % Normal 0.9-7.0 [facility] Comment on above: Performed By: #### U RTPCR #### [facility] [address] [place] [address] Dr. Dwight Waters Erythrocyte distribution width (RBC) [Ratio] 12.5 % Normal 11.0-15.0 [facility] Comment on above: Performed By: #### U RTPCR #### [facility] [address] [place] [address] Dr. Dwight Waters Hematocrit (Bld) [Volume fraction] 48.3 % Normal 42.0-54.0 [facility] Comment on above: Performed By: #### U RTPCR #### [facility] [address] [place] [address] Dr. Dwight Waters Hemoglobin (Bld) [Mass/Vol] 15.3 g/dL Normal 14.0-18.0 [facility] Comment on above: Performed By: #### U RTPCR #### [facility] [address] [place] [address] Dr. Dwight Waters IG # 0.01 10e3/ul Normal 0.00-0.03 [facility] Comment on above: Performed By: #### U RTPCR #### [facility] [address] [place] [address] Dr. Dwight Waters IG % 0.2 % Normal 0.0-0.5 [facility] Comment on above: Performed By: #### U RTPCR #### [facility] [address] [place] [address] Dr. Dwight Waters LYMPH # 1.9 103/ul Normal 1.2-3.8 [facility] Comment on above: Performed By: #### U RTPCR #### [facility] [address] [place] [address] Dr. Dwight Waters Lymphocytes/100 WBC (Bld) 29.8 % Normal 20.5-60.0 [facility] Comment on above: Performed By: #### U RTPCR #### [facility] [address] [place] [address] Dr. Dwight Waters MANUAL DIFF REQ NO Normal [facility] Comment on above: Performed By: #### U RTPCR #### [facility] [address] [place] [address] Dr. Dwight Waters MCH (RBC) [Entitic mass] 28.2 pg Normal 25.9-34.0 [facility] Comment on above: Performed By: #### U RTPCR #### [facility] [address] [place] [address] Dr. Dwight Waters MCHC (RBC) [Mass/Vol] 31.7 g/dL Normal 29.9-35.2 [facility] Comment on above: Performed By: #### U RTPCR #### [facility] [address] [place] [address] Dr. Dwight Waters MCV (RBC) [Entitic vol] 89.1 fL Normal 80.0-94.0 [facility] Comment on above: Performed By: #### U RTPCR #### [facility] [address] [place] [address] Dr. Dwight Waters MONO # 0.6 103/ul Normal 0.3-0.8 [facility] Comment on above: Performed By: #### U RTPCR #### [facility] [address] [place] [address] Dr. Dwight Waters Monocytes/100 WBC (Bld) 9.0 % Normal 1.7-12.0 [facility] Comment on above: Performed By: #### U RTPCR #### [facility] [address] [place] [address] Dr. Dwight Waters NEUT # 3.6 103/ul Normal 1.4-6.5 [facility] Comment on above: Performed By: #### U RTPCR #### [facility] [address] [place] [address] Dr. Dwight Waters Neutrophils/100 WBC (Bld) 57.7 % Normal 43.0-75.0 [facility] Comment on above: Performed By: #### U RTPCR #### [facility] [address] [address] [address] Dwight Waters Platelet mean volume (Bld) [Entitic vol] 9.9 fL Normal 9.5-13.5 [facility] Comment on above: Performed By: #### U RTPCR #### [facility] [address] [address] [address] Dwight Waters PLT 249 103/ul Normal 150-450 [facility] Comment on above: Performed By: #### U RTPCR #### [facility] [address] [place] [address] Dr. Dwight Waters RBC 5.42 106/ul Normal 4.70-6.10 [facility] Comment on above: Performed By: #### U RTPCR #### [facility] [address] [place] [address] Dr. Dwight Waters WBC 6.3 103/ul Normal 4.0-11.0 [facility] Comment on above: Performed By: #### U RTPCR #### [facility] [address] [place] [address] Dr. Dwight Waters ER URINE PROFILEon 2 Bilirubin Ql (U) Unable to perform te sting due to color interference. Abnormal NEGATIVE [facility] Comment on above: Performed By: #### U RTPCR #### [facility] [address] [place] [address] Dr. Dwight Waters Clarity (U) TURBID Abnormal CLEAR [facility] Comment on above: Performed By: #### U RTPCR #### [facility] [address] [place] [address] Dr. Dwight Waters Color (U) RED Abnormal YELLOW [facility] Comment on above: Performed By: #### U RTPCR #### [facility] [address] [place] [address] Dr. Dwight Waters ERUAHD A micrscopic examina tion will be performed if indicated. Normal [facility] Comment on above: Performed By: #### U RTPCR #### [facility] [address] [place] [address] Dr. Dwight Waters Glucose Ql (U) Unable to perform te sting due to color interference. Abnormal NEGATIVE [facility] Comment on above: Performed By: #### U RTPCR #### [facility] [address] [place] [address] Dr. Dwight Waters Hemoglobin Ql (U) Unable to perform te sting due to color interference. Abnormal NEGATIVE [facility] Comment on above: Performed By: #### U RTPCR #### [facility] [address] [place] [address] Dr. Dwight Waters Ketones Ql (U) Unable to perform te sting due to color interference. Abnormal NEGATIVE [facility] Comment on above: Performed By: #### U RTPCR #### [facility] [address] [place] [address] Dr. Dwight Waters LEUKOCYTES Unable to perform te sting due to color interference. Abnormal NEGATIVE [facility] Comment on above: Performed By: #### U RTPCR #### [facility] [address] [place] [address] Dr. Dwight Waters Nitrite Ql (U) Unable to perform te sting due to color interference. Abnormal NEGATIVE [facility] Comment on above: Performed By: #### U RTPCR #### [facility] [address] [place] [address] Dr. Dwight Waters pH (U) 6.5 [pH] Normal 5-9 [facility] Comment on above: Performed By: #### U RTPCR #### [facility] [address] [place] [address] Dr. Dwight Waters SPEC GRAVITY 1.020 Normal 1.005-<=1.02 5 [facility] Comment on above: Performed By: #### U RTPCR #### [facility] [address] [place] [address] Dr. Dwight Waters UA PROTEIN Unable to perform te sting due to color interference. Normal NEGATIVE/ TRACE [facility] Comment on above: Performed By: #### U RTPCR #### [facility] [address] [place] [address] Dr. Dwight Waters UR MICRO IND INDICATED Normal [facility] Comment on above: Performed By: #### U RTPCR #### [facility] [address] [address] [address] Dwight Waters UROBILINOGEN Unable to perform te sting due to color interference. Normal 0.2 - 1.0 [facility] Comment on above: Performed By: #### U RTPCR #### [facility] [address] [place] [address] Dr. Dwight Waters PROF 14(COMP METB)on 022 Albumin [Mass/Vol] 3.8 g/dL Normal 3.4-5.0 [facility] Comment on above: Performed By: #### C MP #### [facility] [address] [place] [address] Dr. Dwight Waters Albumin/Globulin [Mass ratio] 1.1 {ratio} Normal [facility] Comment on above: Performed By: #### C MP #### [facility] [address] [place] [address] Dr. Dwight Waters ALP [Catalytic activity/Vol] 106 U/L Normal 46-116 [facility] Comment on above: Performed By: #### C MP #### [facility] [address] [place] [address] Dr. Dwight Waters ALT [Catalytic activity/Vol] 30 U/L Normal 16-63 [facility] Comment on above: Performed By: #### C MP #### [facility] [address] [place] [address] Dr. Dwight Waters Anion gap [Moles/Vol] 11.7 mmol/L Normal [facility] Comment on above: Performed By: #### C MP #### [facility] [address] [place] [address] Dr. Dwight Waters AST [Catalytic activity/Vol] 16 U/L Normal 15-37 [facility] Comment on above: Performed By: #### C MP #### [facility] [address] [place] [address] Dr. Dwight Waters Bilirubin [Mass/Vol] 0.6 mg/dL Normal 0.2-1.0 [facility] Comment on above: Performed By: #### C MP #### [facility] [address] [address] [address] Dwight Waters Calcium [Mass/Vol] 9.1 mg/dL Normal 8.5-10.1 [facility] Comment on above: Performed By: #### C MP #### [facility] [address] [address] [address] Dwight Waters CO2 [Moles/Vol] 27.4 mmol/L Normal 21.0-32.0 [facility] Comment on above: Performed By: #### C MP #### [facility] [address] [address] [address] Dwight Waters Creatinine [Mass/Vol] 1.18 mg/dL Normal 0.70-1.30 [facility] Comment on above: Performed By: #### C MP #### [facility] [address] [address] [address] Dwight Waters EGFR-AF BRAZILIAN >60 Normal >=60 [facility] Comment on above: Performed By: #### C MP #### [facility] [address] [address] [address] Dwight Waters EGFR-NON AF BRAZILIAN >60 Normal >=60 [facility] Comment on above: Performed By: #### C MP #### [facility] [address] [address] [address] Dwight Waters Globulin (S) [Mass/Vol] 3.6 g/dL Normal [facility] Comment on above: Performed By: #### C MP #### [facility] [address] [address] [address] Dwight Watesr Glucose [Mass/Vol] 192 mg/dL Critically high 74-106 [facility] Comment on above: Performed By: #### C MP #### [facility] [address] [place] [address] Dr. Dwight Waters Potassium [Moles/Vol] 4.1 mmol/L Normal 3.5-5.1 [facility] Comment on above: Performed By: #### C MP #### [facility] [address] [address] [address] Dwight Waters Protein [Mass/Vol] 7.4 g/dL Normal 6.4-8.2 [facility] Comment on above: Performed By: #### C MP #### [facility] [address] [address] [address] Dwight Waters Sodium [Moles/Vol] 142 mmol/L Normal 136-145 [facility] Comment on above: Performed By: #### C MP #### [facility] [address] [place] [address] Dr. Dwight Waters Urea nitrogen [Mass/Vol] 17.0 mg/dL Normal 7.0-18.0 [facility] Comment on above: Performed By: #### C MP #### [facility] [address] [place] [address] Dr. Dwight Waters Urea nitrogen/Creatinine [Mass ratio] 14.4 mg/mg Normal [facility] Comment on above: Performed By: #### C MP #### [facility] [address] [place] [address] Dr. Dwight Waters URINE MICROSCOPIC ONLYon BACTERIA NONE SEEN Normal NONE SEEN [facility] Comment on above: Performed By: #### U RTPCR #### [facility] [address] [place] [address] Dr. Dwight Waters Bacteria identified Cx Nom (U) NOT INDICATED Normal [facility] Comment on above: Performed By: #### U RTPCR #### [facility] [address] [place] [address] Dr. Dwight Waters CAST NONE SEEN Normal NONE SEEN [facility] Comment on above: Performed By: #### U RTPCR #### [facility] [address] [place] [address] Dr. Dwight Waters Crystals LM Nom (Urine sed) NONE SEEN Normal NONE SEEN [facility] Comment on above: Performed By: #### U RTPCR #### [facility] [address] [place] [address] Dr. Dwight Waters Epithelial cells LM Ql (Urine sed) RARE Normal NONE SEEN /RARE [facility] Comment on above: Performed By: #### U RTPCR #### [facility] [address] [address] [address] Dwight Waters MUCOUS NONE SEEN Normal NONE SEEN [facility] Comment on above: Performed By: #### U RTPCR #### [facility] [address] [address] [address] Dwight Waters RBC (U) [#/Vol] /uL Abnormal 0-2 [facility] Comment on above: Performed By: #### U RTPCR #### [facility] [address] [address] [address] Dwight Waters WBC NONE SEEN Normal NONE SEEN [facility] Comment on above: Performed By: #### U RTPCR #### [facility] [address] [address] [address] Dwight Waters K (Potassium)on 01-06-2020 Potassium [Moles/Vol] 4.4 mmol/L Normal 3.7-5.3 [facility] Comment on above: Performed By: #### K #### [facility] [address] [place] [address] Shell Coremaker: Kehinde Woodward MD Potassiumon 01-06-2020 Potassium [Moles/Vol] 4.4 mmol/L 3.7 - 5.3 mmol/L [facility] Work Phone: Hemoglobin and Hematocrit, B loodon 10-24-2019 Hematocrit (Bld) [Volume fraction] 23.6 % Low 40.7 - 50.3 % [place], [place] Hemoglobin (Bld) [Mass/Vol] 7.3 g/dL Low 13 - 17 g/dL [place], [place] Interpretation and review of laboratory results Abnormal [place], [place] Hgb/Hcton 10-24-2019 Hematocrit (Bld) [Volume fraction] 23.6 % Low 40.7-50.3 [facility] Comment on above: Performed By: #### H H #### [facility] [address] [place] [address] Shell Coremaker: Kehinde Woodward MD Hemoglobin (Bld) [Mass/Vol] 7.3 g/dL Low 13.0-17.0 [facility] Comment on above: Performed By: #### H H #### [facility] [address] [place] [address] Shell Coremaker: Kehinde Woodward MD Hemoglobinon 08-27-2019 Hemoglobin (Bld) [Mass/Vol] 7.5 g/dL Low 13.0-17.0 [facility] Comment on above: Performed By: #### H GB #### [facility] [address] [place], [place] [address] Shell Coremaker: Kehinde Woodward MD Hemoglobin (Bld) [Mass/Vol] 7.5 g/dL Low 13 - 17 g/dL [place], [place] Interpretation and review of laboratory results Abnormal [place] Hemoglobinon 08-08-2019 Hemoglobin (Bld) [Mass/Vol] 8.3 g/dL Low 13.0-17.0 [facility] Comment on above: Performed By: #### H GB #### [facility] [address] [place], [place] [address] Shell Coremaker: Kehinde Woodward MD Hemoglobin (Bld) [Mass/Vol] 8.3 g/dL Low 13 - 17 g/dL [place] Interpretation and review of laboratory results Abnormal [place] Hemoglobinon 08-04-2019 Hemoglobin (Bld) [Mass/Vol] 8.0 g/dL Low 13.0-17.0 [facility] Comment on above: Performed By: #### H GB #### [facility] [address] [place], [place] [address] Shell Coremaker: Kehinde Woodward MD Hemoglobin A1Con 08-03-2019 HbA1c (Bld) [Mass fraction] % Low 4.8-5.9 [facility] Comment on above: Result Comment: The ADA and AACC recommend providing the estimated average glucose result to permit better patient understanding of their HBA1c result. Performed By: #### G LYHGB #### [facility] [address] [place] [address] Shell Coremaker: Kehinde Woodward MD Glucose [Mass/Vol] mg/dL mg/dL [place], [place] Comment on above: The ADA and AACC rec ommend providing the estimated average glucose result to permit better patient understanding of their HBA1c result. HbA1c (Bld) [Mass fraction] % Low 4.8 - 5.9 % [place] Interpretation and review of laboratory results Abnormal [place] Hemoglobinon 08-01-2019 Hemoglobin (Bld) [Mass/Vol] 8.1 g/dL Low 13.0-17.0 [facility] Comment on above: Performed By: #### H GB #### [address] [place], [place] [address] Shell Coremaker: Kehinde Woodward MD Hemoglobin (Bld) [Mass/Vol] 8.1 g/dL Low 13 - 17 g/dL [place], [place] Interpretation and review of laboratory results Abnormal [place] Hgb/Hcton 06-10-2019 Hematocrit (Bld) [Volume fraction] 24.3 % Low 40.7-50.3 [facility] Comment on above: Performed By: #### H H #### [address] [place], [place] [address] Shell Coremaker: Kehinde Woodward MD Hemoglobin (Bld) [Mass/Vol] 7.4 g/dL Low 13.0-17.0 [facility] Comment on above: Performed By: #### H H #### [facility] [address] [place] [address] Shell Coremaker: Kehinde Woodward MD Hemoglobinon 06-01-2019 Hemoglobin (Bld) [Mass/Vol] 7.2 g/dL Low 13.0-17.0 [facility] Comment on above: Performed By: #### H GB #### [facility] [address] [place] [place] [address] Shell Coremaker: Kehinde Woodward MD K (Potassium)on 01-14-2019 Potassium [Moles/Vol] 3.6 mmol/L Low 3.7-5.3 [facility] Comment on above: Performed By: #### K #### [facility] [address] [place] [address] Shell Coremaker: Kehinde Woodward MD Otheron 10-19-2018 IMPRESSION: 1. [...] characteristics determined by Toxicology Laboratory at [facility]. It has not been cleared or approved [...] Amitriptyline(50), Amphetamine(250), Atenolol(500), Barbiturates(1000), Benzoylecgonine(50), Buprenorphine(50), Bupropion(25), Caffeine(44216), Chlordiazepoxide(50), Chlorpheniramine(100), Chlorpromazine(50), Citalopram(100), Clonazepam(200), Cocaine(25), Codeine(200), [...] LOUIS, QASIM TOXICOLOGY SCREEN URINE - UD [facility] 10-12-2018 Drugs identified Screen Nom (U) For Medical Purposes Only, Non-forensic, screen results are presumptive. No confirmatory testing will follow. Invalid Interpretation Shira LOUIS, QASIM Comment on above: This Liquid Chromato graphy Mass Spectrometry (LC/MS/MS) test was developed and its performance characteristics determined by Toxicology Laboratory at [facility]. It has not been cleared or approved [...] Amitriptyline(50), Amphetamine(250), Atenolol(500), Barbiturates(200), Benzoylecgonine(50), Buprenorphine(500), Bupropion(25), Caffeine(90832), Cannabinoids(THC)(50), Chlordiazepoxide(50), Chlorpheniramine(100), Chlorpromazine(50), Citalopram(100), Clonazepam(200), Cocaine(25), [...] index (BMI) [Ratio] 29.43 kg/m2 Rebeca Gutierrez INTERNET MERCHANT-SENIOR ENERGY ANALYST Work Phone: [facility] 06-17-2024 08:37-0400 Body temperature 97.39 [degF] Rebeca Gutierrez INTERNET MERCHANT-SENIOR ENERGY ANALYST Work Phone: [facility] 06-17-2024 08:37-0400 Body weight 85.23 kg Rebeca Gutierrez INTERNET MERCHANT-SENIOR ENERGY ANALYST Work Phone: [facility] 06-17-2024 08:37-0400 Diastolic blood pressure 75 mm[Hg] Rebeca Gutierrez INTERNET MERCHANT-SENIOR ENERGY ANALYST Work Phone: [facility] 06-17-2024 08:37-0400 Heart rate 53 /min Rebeca Gutierrez INTERNET MERCHANT-SENIOR ENERGY ANALYST Work Phone: [facility] 06-17-2024 08:37-0400 Systolic blood pressure 143 mm[Hg] Rebeca Gutierrez INTERNET MERCHANT-SENIOR ENERGY ANALYST Work Phone: [facility] 06-17-2024 08:36-0400 Body mass index (BMI) [Ratio] 29.43 kg/m2 Daisha Sobotka DO Work Phone: [facility] 06-17-2024 08:36-0400 Body temperature 97.39 [degF] Daisha Sobotka DO Work Phone: [facility] 06-17-2024 08:36-0400 Body weight 85.23 kg Daisha Sobotka DO Work Phone: [facility] 06-17-2024 08:36-0400 Diastolic blood pressure 75 mm[Hg] Daisha Max DO Work Phone: [facility] 06-17-2024 08:36-0400 Heart rate 53 /min Daisha Gamboaotka DO Work Phone: [facility] 06-17-2024 08:36-0400 Systolic blood pressure 143 mm[Hg] Daisha Mtzka DO Work Phone: [facility] 02-26-2024 09:07-0400 Diastolic blood pressure 56 mm[Hg] Candie Almaguer MD Work Phone: [facility] 02-26-2024 09:07-0400 Heart rate 65 /min Candie Almaguer MD Work Phone: [facility] 02-26-2024 09:07-0400 Systolic blood pressure 113 mm[Hg] Candie Almaguer MD Work Phone: [facility] 02-26-2024 09:06-0400 Body height 170.2 cm Candie Almaguer MD Work Phone: [facility] 02-26-2024 09:06-0400 Body mass index (BMI) [Ratio] 28.9 kg/m2 Candie Almaguer MD Work Phone: [facility] 02-26-2024 09:06-0400 Body weight 83.69 kg Candie Almaguer MD Work Phone: [facility] 02-26-2024 09:06-0400 Respiratory rate 20 /min Candie Almaguer MD Work Phone: [facility] 02-26-2024 09:06-0400 SaO2% (BldA) [Mass fraction] 97 % Candie Almaguer MD Work Phone: [facility] 01-23-2024 15:04-0500 Body temperature 97.9 [degF] Kevin Sage MD Work Phone: [facility] 01-23-2024 15:04-0500 Diastolic blood pressure 67 mm[Hg] Kevin Sage MD Work Phone: [facility] 01-23-2024 15:04-0500 Heart rate 51 /min Kevin Sage MD Work Phone: [facility] 01-23-2024 15:04-0500 Respiratory rate 16 /min Kevin Sage MD Work Phone: [facility] 01-23-2024 15:04-0500 SaO2% (BldA) [Mass fraction] 94 % Kevin Sage MD Work Phone: [facility] 01-23-2024 15:04-0500 Systolic blood pressure 151 mm[Hg] Kevin Sage MD Work Phone: [facility] 01-23-2024 10:46-0500 Body mass index (BMI) [Ratio] 30.94 kg/m2 Kevin Sage MD Work Phone: [facility] 01-23-2024 10:46-0500 Body weight 89.6 kg Kevin Sage MD Work Phone: [facility] 01-18-2024 11:21-0500 Body height 170.2 cm Kevin Sage MD Work Phone: [facility] 01-06-2024 09:04-0500 Body height 170.2 cm Zuly Bruno NP Work Phone: [facility] 01-06-2024 09:04-0500 Body mass index (BMI) [Ratio] 32.42 kg/m2 Zuly Bruno NP Work Phone: [facility] 01-06-2024 09:04-0500 Body temperature 97.81 [degF] Zulytray Torresholz ASSURANCE ASSISTANT Work Phone: [facility] 01-06-2024 09:04-0500 Body weight 93.89 kg Zulytray Torresholz ASSURANCE ASSISTANT Work Phone: [facility] 01-06-2024 09:04-0500 Diastolic blood pressure 70 mm[Hg] Zuly Brianholz ASSURANCE ASSISTANT Work Phone: [facility] 01-06-2024 09:04-0500 Heart rate 95 /min Zuly Lexiehholz ASSURANCE ASSISTANT Work Phone: [facility] 01-06-2024 09:04-0500 Respiratory rate 17 /min Zuly Brianholz ASSURANCE ASSISTANT Work Phone: [facility] 01-06-2024 09:04-0500 SaO2% (BldA) [Mass fraction] 99 % Zuly Brianholz ASSURANCE ASSISTANT Work Phone: [facility] 01-06-2024 09:04-0500 Systolic blood pressure 138 mm[Hg] Zuly Lexiehholz ASSURANCE ASSISTANT Work Phone: [facility] 09-11-2023 10:31-0400 Body temperature 97.81 [degF] Steve Yeison MBBS Work Phone: [facility] 09-11-2023 10:31-0400 Diastolic blood pressure 66 mm[Hg] Steve Yeison MBBS Work Phone: [facility] 09-11-2023 10:31-0400 Heart rate 70 /min Steve Yesion MBBS Work Phone: [facility] 09-11-2023 10:31-0400 Respiratory rate 20 /min Steve Yeison MBBS Work Phone: [facility] 09-11-2023 10:31-0400 SaO2% (BldA) [Mass fraction] 91 % Steve Yeison MBBS Work Phone: [facility] 09-11-2023 10:31-0400 Systolic blood pressure 129 mm[Hg] Steve Yeison MBBS Work Phone: [facility] 09-10-2023 15:50-0400 Body mass index (BMI) [Ratio] 31.99 kg/m2 Steve Yeison MBBS Work Phone: [facility] 09-10-2023 15:50-0400 Body weight 92.67 kg Steve Yeison MBBS Work Phone: [facility] 09-02-2023 07:32-0400 Body height 170.2 cm Steve Yeison MBBS Work Phone: [facility] 08-28-2023 13:33-0400 Body height 170.2 cm Steve Yeison MBBS Work Phone: [facility] 08-28-2023 13:33-0400 Body mass index (BMI) [Ratio] 32.12 kg/m2 Steve Yeison MBBS Work Phone: [facility] 08-28-2023 13:33-0400 Body temperature 97.3 [degF] Steve Yeison MBBS Work Phone: [facility] 08-28-2023 13:33-0400 Body weight 93.03 kg Steve Yeison MBBS Work Phone: [facility] 08-28-2023 13:33-0400 Diastolic blood pressure 41 mm[Hg] Steve Yeison MBBS Work Phone: [facility] 08-28-2023 13:33-0400 Heart rate 116 /min Steve Yeison MBBS Work Phone: [facility] 08-28-2023 13:33-0400 Systolic blood pressure 106 mm[Hg] Steve Yeison MBBS Work Phone: [facility] 06-12-2023 14:50-0400 Body mass index (BMI) [Ratio] 33.8 kg/m2 Rebeca Gutierrez INTERNET MERCHANT-SENIOR ENERGY ANALYST Work Phone: [facility] 06-12-2023 14:50-0400 Body temperature 97.3 [degF] Rebeca Gutierrez INTERNET MERCHANT-SENIOR ENERGY ANALYST Work Phone: [facility] 06-12-2023 14:50-0400 Body weight 97.89 kg Rebeca Gutierrez INTERNET MERCHANT-SENIOR ENERGY ANALYST Work Phone: [facility] 06-12-2023 14:50-0400 Diastolic blood pressure 77 mm[Hg] Rebeca Gutierrez INTERNET MERCHANT-SENIOR ENERGY ANALYST Work Phone: [facility] 06-12-2023 14:50-0400 Heart rate 76 /min Rebeca Gutierrez INTERNET MERCHANT-SENIOR ENERGY ANALYST Work Phone: [facility] 06-12-2023 14:50-0400 Systolic blood pressure 146 mm[Hg] Rebeca Gutierrez INTERNET MERCHANT-SENIOR ENERGY ANALYST Work Phone: [facility] 01-16-2023 08:57-0500 Body height 170.2 cm [facility] Work Phone: [facility] 01-16-2023 08:57-0500 Body mass index (BMI) [Ratio] 33.66 kg/m2 [facility] Work Phone: [facility] 01-16-2023 08:57-0500 Body temperature 97.3 [degF] [facility] Work Phone: [facility] 01-16-2023 08:57-0500 Body weight 97.48 kg [facility] 3 Work Phone: [facility] 01-16-2023 08:57-0500 Diastolic blood pressure 75 mm[Hg] [facility] Work Phone: [facility] 01-16-2023 08:57-0500 Heart rate 76 /min [facility] Work Phone: [facility] 01-16-2023 08:57-0500 Systolic blood pressure 142 mm[Hg] [facility] Work Phone: [facility] 09-10-2022 09:38-0400 Body height 170.2 cm Ryan Yepez MD Work Phone: [facility] 09-10-2022 09:38-0400 Body mass index (BMI) [Ratio] 33.67 kg/m2 Ryan Yepez MD Work Phone: [facility] 09-10-2022 09:38-0400 Body weight 97.52 kg Ryan Yepez MD Work Phone: [facility] 09-10-2022 09:38-0400 Diastolic blood pressure 83 mm[Hg] Ryan Yepez MD Work Phone: [facility] 09-10-2022 09:38-0400 Heart rate 64 /min Ryan Yepez MD Work Phone: [facility] 09-10-2022 09:38-0400 SaO2% (BldA) [Mass fraction] 96 % Ryan Yepez MD Work Phone: [facility] 09-10-2022 09:38-0400 Systolic blood pressure 129 mm[Hg] Ryan Yepez MD Work Phone: [facility] 07-07-2022 13:48-0400 Diastolic blood pressure 76 mm[Hg] Ryan Yepez MD Work Phone: [facility] 07-07-2022 13:48-0400 Heart rate 82 /min Ryan Yepez MD Work Phone: [facility] 07-07-2022 13:48-0400 SaO2% (BldA) [Mass fraction] 96 % Ryan Yepez MD Work Phone: [facility] 07-07-2022 13:48-0400 Systolic blood pressure 141 mm[Hg] Ryan Yepez MD Work Phone: [facility] 06-27-2022 13:32-0400 Body height 170.2 cm Ryan Yepez MD Work Phone: [phone](361)[phone] [address] 06-27-2022 13:32-0400 Body mass index (BMI) [Ratio] 34.24 kg/m2 Ryan Yepez MD Work Phone: 5(230)[phone] [address] 06-27-2022 13:32-0400 Body temperature 98.6 [degF] Ryan Yepez MD Work Phone: [facility] 06-27-2022 13:32-0400 Body weight 99.16 kg Ryan Yepez MD Work Phone: [phone])[phone] [address] 06-27-2022 13:32-0400 Diastolic blood pressure 78 mm[Hg] Ryan Yepez MD Work Phone: [facility] 06-27-2022 13:32-0400 Heart rate 77 /min Ryan Yepez MD Work Phone: [facility] 06-27-2022 13:32-0400 SaO2% (BldA) [Mass fraction] 95 % Ryan Yepez MD Work Phone: [facility] 06-27-2022 13:32-0400 Systolic blood pressure 121 mm[Hg] Ryan Yepez MD Work Phone: [facility] 06-27-2022 10:52-0400 Body height 170.2 cm Rena Brewster RN [facility] 06-27-2022 10:52-0400 Body mass index (BMI) [Ratio] 34.46 kg/m2 Rena Brewster RN [facility] 06-27-2022 10:52-0400 Body temperature 98.2 [degF] Rena Brewster RN [facility] 06-27-2022 10:52-0400 Body weight 99.79 kg Rena Brewster RN [facility] 06-27-2022 10:52-0400 Diastolic blood pressure 73 mm[Hg] Rena Brewster RN [facility] 06-27-2022 10:52-0400 Heart rate 78 /min Rena Brewster RN [facility] 06-27-2022 10:52-0400 Respiratory rate 20 /min Rena Brewster RN [facility] 06-27-2022 10:52-0400 SaO2% (BldA) [Mass fraction] 97 % Rena Brewster RN [facility] 06-27-2022 10:52-0400 Systolic blood pressure 135 mm[Hg] Rena Brewster RN [facility] 06-12-2022 14:23-0400 Body mass index (BMI) [Ratio] 34.59 kg/m2 Steve Latham MBBS Work Phone: [facility] 06-12-2022 14:23-0400 Body temperature 97 [degF] Steve Farrari MBBS Work Phone: [facility] 06-12-2022 14:23-0400 Body weight 100.2 kg Steve Farrari MBBS Work Phone: [facility] 06-12-2022 14:23-0400 Diastolic blood pressure 66 mm[Hg] Steve Farrari MBBS Work Phone: [facility] 06-12-2022 14:23-0400 Heart rate 63 /min Steve LEIGH Work Phone: [facility] 06-12-2022 14:23-0400 Systolic blood pressure 133 mm[Hg] Stevemassiel Farrarmatthew LEIGH Work Phone: [facility] 05-20-2022 15:21-0400 Body temperature 97.9 [degF] Gian Villatoro MD Work Phone: [facility] 05-20-2022 15:21-0400 Diastolic blood pressure 64 mm[Hg] Gian Villatoro MD Work Phone: [facility] 05-20-2022 15:21-0400 Heart rate 55 /min Gian Villatoro MD Work Phone: [facility] 05-20-2022 15:21-0400 Respiratory rate 15 /min Gian Villatoro MD Work Phone: [facility] 05-20-2022 15:21-0400 SaO2% (BldA) [Mass fraction] 95 % Gian Villatoro MD Work Phone: [facility] 05-20-2022 15:21-0400 Systolic blood pressure 145 mm[Hg] Gian Villatoro MD Work Phone: [facility] 05-19-2022 12:15-0400 Body mass index (BMI) [Ratio] 35.87 kg/m2 Gian Villatoro MD Work Phone: [facility] 05-19-2022 12:15-0400 Body weight 103.92 kg Gian Villatoro MD Work Phone: [facility] Comment on above: standing scale 05-16-2022 16:19-0400 Body height 170.2 cm Gian Villatoro MD Work Phone: [phone] [address] 10-19-2018 08:44-0500 BMI (Body Mass Index) 26.58 kg/m2 [facility] Work Phone: 10-19-2018 08:44-0500 BP Diastolic 76 mm[Hg] [facility] Work Phone: 10-19-2018 08:44-0500 BP Systolic 144 mm[Hg] [facility] Work Phone: 10-19-2018 08:44-0500 Height 172.7 cm [facility] Work Phone: 10-19-2018 08:44-0500 Pulse (Heart Rate) 92 /min [facility] Work Phone: 10-19-2018 08:44-0500 Pulse Oximetry 99 % [facility] Work Phone: 10-19-2018 08:44-0500 Respiratory Rate 16 /min [facility] Work Phone: 10-19-2018 08:44-0500 Weight 79.29 kg [facility] Work Phone: 10-12-2018 09:50-0500 BMI (Body Mass Index) 27.24 kg/m2 [facility] Work Phone: 10-12-2018 09:50-0500 Body Temperature 98.6 [degF] [facility] Work Phone: 10-12-2018 09:50-0500 BP Diastolic 80 mm[Hg] [facility] Work Phone: 10-12-2018 09:50-0500 BP Systolic 157 mm[Hg] [facility] Work Phone: 10-12-2018 09:50-0500 Height 169.5 cm [facility] Work Phone: 10-12-2018 09:50-0500 Pulse (Heart Rate) 94 /min [facility] Work Phone: 10-12-2018 09:50-0500 Weight 78.29 kg [facility] Work Phone: Encounters Encounter Date Encounter Type Care Provider Facility Start: 06-23-2024 End: 06-23-2024 ambulatory Meka Munoz [facility] Start: 06-23-2024 End: 06-23-2024 Patient encounter procedure Meka Munoz [facility] [place] [place] Start: 06-17-2024 End: 06-17-2024 Office outpatient visit 25 minutes Daisha Max DO Work Phone: [facility] Comment on above: Liver lesion (Primar y Dx); Liver transplant recipient; High risk medication use; Therapeutic drug monitoring; 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) Start: 06-17-2024 ambulatory DAISHA MAX Facil ity:[facility] Start: 05-26-2024 End: 05-26-2024 ambulatory Evan Bolton RPh,PharmD Pharmacy Outpatient [facility] Start: 05-26-2024 End: 05-26-2024 Patient encounter procedure Evan Bolton RPh,PharmD Pharmacy Outpatient [facility] Start: 05-13-2024 End: 05-13-[address] [facility] Start: 04-18-2024 End: 04-18-2024 ambulatory ZULY BRUNO Not Available Start: 03-24-2024 End: 03-24-2024 Patient encounter procedure Angel Carpio RPh,PharmD Pharmacy [facility]patient [facility] Start: 03-24-2024 End: 03-24-2024 ambulatory Angel Carpio [facility],PharmD Pharmacy Outpatient [facility] Start: 03-22-2024 [...] 03-02-2024 ambulatory Meka Munoz [facility] Pharm[facility] [place] [facility] Start: 03-02-2024 End: 03-02-2024 Patient encounter procedure Meka Munoz [facility] Pharm[facility] Start: 03-01-2024 ambulatory ZULY AICHHOLZ Facility: [facility] Start: 03-01-2024 End: 03-01-2024 ambulatory JOHNNA BRINK Not Available Start: 02-26-2024 ambulatory ZULY AICHHOLZ Facility: [facility] Start: 02-26-2024 End: 02-26-2024 Office outpatient new 30 minutes Candie Almaguer MD Work Phone: [facility] Comment on above: Heart failure, diast olic, acute (Primary Dx) Start: 02-26-2024 ambulatory ZULY AICHHOLZ Facility: [facility] Start: 02-25-2024 End: 02-25-2024 ambulatory FIDELINA DANIEL Not Available Start: 02-23-2024 End: 02-23-2024 ambulatory PALMA PALACIOS Not Available Start: 02-11-2024 End: 02-11-2024 ambulatory ZULY AICHHOLZ Not Available Start: 01-16-2024 Encounter for other preprocedural examination KELVIN PACHECO [facility] Start: 01-16-2024 End: 01-23-2024 Evaluation and management of inpatient Kevin Sage MD Work Phone: [id number] Comment on above: Pleural effusion on right Start: 01-16-2024 End: 01-23-2024 Patient encounter status Kevin Sage MD Work Phone: [facility] Work Phone: Start: 01-12-2024 End: 01-12-2024 ambulatory Angel Fete RPh,PharmD Pharmacy [facility] Start: 01-12-2024 End: 01-12-2024 Patient encounter procedure Angel Fete RPh,PharmD Pharmacy Outpatient [facility] Start: 01-08-2024 Clinisync Result Encounter Generic External Data Provider [facility] External Department Unsolicited Start: 01-08-2024 Clinisync Result Encounter Generic External Data Provider [facility] External Department Unsolicited Start: 01-06-2024 End: 01-06-2024 ambulatory ZULY AICHHOLZ Not Available Start: 01-06-2024 End: 01-06-2024 Office outpatient visit 25 minutes Zuly Marissaz ASSURANCE ASSISTANT Work Phone: [facility] Comment on above: Bilateral lower extr emity edema (Primary Dx); 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); Atherosclerosis 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); Obesity (BMI 30-39.9); DARLENE (obstructive sleep apnea); Tremor; Immunocompromised ([facility]); Primary hypertension ([facility]); Shortness of breath Start: 01-01-2024 Clinisync Result Encounter Generic External Data Provider [facility] External Department Unsolicited Start: 01-01-2024 Clinisync Result Encounter Generic External Data Provider [facility] External Department Unsolicited Start: 11-03-2023 End: 11-03-2023 ambulatory ZULY AICHHOLZ Not Available Start: 10-06-2023 ambulatory Angel Fete RPh,PharmD Pharmacy Outpatient [facility] Start: 10-06-2023 Patient encounter procedure Angel Fete RPh,PharmD Pharmacy Outpatient RX [facility] Start: 09-29-2023 ambulatory ZULY AICHHOLZ Facility: [facility] Start: 09-23-2023 ambulatory ZULY BRUNO Facility: [facility] Start: 09-15-2023 [facility] Start: 08-28-2023 End: 09-11-2023 Evaluation and management of inpatient Steve Latahm MBBS Work Phone: [id number] Start: 08-28-2023 End: 08-28-2023 Office outpatient visit 25 minutes Steve Latham MBBS Work Phone: [facility] Transplant [facility] Comment on above: Immunosuppressed sta tus (Primary Dx); Kidney replaced by transplant; Aftercare following organ transplant; High risk medication use; Other general symptoms and signs; Abnormal blood chemistry; Hypertension secondary to other renal disorders Start: 08-28-2023 ambulatory STEVE LATHAM Facility:[facility] Start: 08-19-2023 ambulatory Meka rueda [facility] Pharmacy Outpatient RX [facility] Start: 08-19-2023 Patient encounter procedure Meka Munoz [facility] Pharmacy Outpatient RX [place] Start: 06-12-2023 End: 06-12-2023 Office outpatient visit 25 minutes Steve Latham MBBS Work Phone: [facility] Transplant [facility] Comment on above: 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) Start: 06-10-2023 ambulatory Maren Bar RPh,PharmD Pharmacy Outpatient RX [place] Start: 06-10-2023 Patient encounter procedure Maren Dipika [...] Madsene RPh,PharmD Pharmacy Outpatient RX [facility] Start: 03-02-2023 End: 03-03-[address] DOCTOR EVANS Facility:[facility] Start: 01-16-2023 End: 01-16-2023 Office outpatient visit 25 minutes Daisha Max DO Work Phone: [facility] Comment on above: Abnormal blood [...] MD Work Phone: [facility] Comment on above: BPH with obstruction /lower urinary tract symptoms (Primary Dx); Encounter for screening for malignant neoplasm of prostate Start: 08-28-2022 End: 08-29-2022 ambulatory ROB BRUNO Facility:[facility] Start: 08-14-2022 End: 08-15-[address] DOCTOR EVANS Facility:[facility] Start: 07-07-2022 End: 07-07-2022 Patient encounter procedure Ryan Yepez MD Work Phone: [facility] [place] Comment on above: Other hydronephrosis (Primary Dx); [...] MD Work Phone: [facility] Comment on above: Other hydronephrosis (Primary Dx) [...] visit 25 minutes Steve LEIGH Work Phone: [facility] Comment on above: Immunosuppressed sta [...] of inpatient Gian Villatoro MD Work Phone: [id number] Comment on above: FAYE (acute kidney in jury) Start: 05-15-2022 End: 05-15-[address] GEORGE LAWRENCE Facility:[facility] Start: 05-11-2022 End: 05-11-[address] GEORGE LAWRENCE Facility:[facility] Start: 03-14-2022 ambulatory Comfort Rivera [facility] Work Phone: Pharmacy Outpatient RX [facility] Start: 03-14-2022 Patient encounter procedure Comfort Rivera [facility] Work Phone: Pharmacy Outpatient RX [facility] Start: 06-14-2021 End: 06-14-2021 ambulatory Comfort Rivera [facility] Work Phone: [facility] Start: 06-14-2021 Patient encounter procedure Comfort Rivera [facility] Work Phone: [facility] Start: 01-20-2020 End: 01-27-2020 Patient encounter procedure PEPE CASE Facility:[facility] Start: 01-06-2020 End: 01-07-2020 Patient encounter procedure RENA GUDINO [facility] Start: 01-06-2020 End: 01-06-2020 Subsequent hospital visit by physician [facility] Start: 10-24-2019 End: 10-25-2019 Patient encounter procedure TANA CAMPA [facility] Start: 10-24-2019 End: 10-24-2019 Subsequent hospital visit by physician [facility] Start: 08-27-2019 End: 08-28-2019 [facility] Start: 08-27-2019 End: 08-27-2019 Subsequent hospital visit by physician [facility] Start: 08-08-2019 End: 08-09-2019 [facility] Start: 08-08-2019 End: 08-08-2019 Subsequent hospital visit by physician [facility] Start: 08-03-2019 End: 08-04-2019 [facility] Start: 08-03-2019 End: 08-03-2019 Subsequent hospital visit by physician [facility] Start: 08-01-2019 End: 08-02-2019 [facility] Start: 08-01-2019 End: 08-01-2019 Subsequent hospital visit by physician [facility] Start: 06-10-2019 End: 06-11-2019 Patient encounter procedure RENA GUDINO [facility] Start: 06-01-2019 End: 06-02-2019 Patient encounter procedure RENA GUDINO [facility] Start: 01-14-2019 End: 01-15-2019 Patient encounter procedure RENA GUDINO [facility] Start: 11-17-2018 End: 11-17-2018 Patient encounter procedure Fidelina [facility] [place] [facility] Comment on above: Social [...] End: 10-12-2018 Patient encounter procedure Sophie Cary [facility] Pre Transplant Office Comment on above: Alcoholic cirrhosis, unspecified whether ascites present (Primary Dx); Pre-transplant evaluation for liver transplant Start: 10-12-2018 End: 10-12-2018 Office outpatient new 60 minutes Alfredito Restrepo Work Phone: [facility] Pre Transplant Office Comment on above: Alcoholic cirrhosis, unspecified whether ascites present; ESRD (end stage renal disease) on dialysis; Pre-transplant evaluation for liver transplant Start: 10-06-2018 End: 10-06-2018 Patient encounter procedure Yovani Orr Work Phone: Department of Radiology Comment on above: Canceled (Insurance Company Redirected Pt) Start: 10-05-2018 Patient encounter status Comfort Rivera [facility] Work Phone: [facility] Procedures Date Procedure Procedure Detail [...] above: Performed By: #### X M ####[facility] ([facility])[address] [place] [address] Start: 01-22-2024 Assay of magnesium Just in [...] Work Phone: Start: 01-20-2024 Cardiac catheterization LU Jian MD Work Phone: Start: 01-20-2024 Assay of magnesium Just in Jake LUZ Work Phone: Start: 01-20-2024 Hepatic function panel Arelis Mera MD Work Phone: Start: 01-20-2024 ITRACONAZOLE LEVEL Jennifer norbert K Dorian [facility] Work Phone: Start: 01-20-2024 Oscillating positive [...] quantifica tion each organism Fidelina K Dorian [facility] Work Phone: Start: 01-18-2024 Echocardiography STEVE [...] AURIS SCREEN BY PCR Carol Ann Capps [employer] Work Phone: Start: 01-08-2024 ALL CBC WITH [...] Work Phone: Start: 09-04-2023 Hepatic function panel Eavn Kelly MD Work Phone: Start: 09-03-2023 Flow [...] AURIS SCREEN BY PCR Carol Ann Capps [employer] Work Phone: Start: 08-28-2023 CBC AND ELECTRONIC [...] above: Performed By: #### C MP #### [facility] [address] [place] [address] Dr. Dwight Waters Start: 07-07-2022 Rmvl nfros [...] liver trans plant Comfort Miguel [facility] Work Phone: Start: 04-08-2020 H/O: liver recipient Liver tra nsplant recipient Comfort Rivera [facility] Work Phone: Start: 01-06-2020 Potassium serum [...] transplant recipient Comfort Rivera [facility] Work Phone: Start: 06-10-2019 HEMOGLOBIN AND HEMAT OCRIT, BLOOD ROB KASMANI Start: 06-01-2019 Blood count hemoglobin ROB KASMANI Start: 03-22-2019 Lipid 1996 panel - S fabricio or Plasma Comfort Rivera [facility] Work Phone: Start: 01-14-2019 Potassium serum [...] 10-12-2018 End: 10-12-2018 Antibody rubeola Yovani Mejias [employer] Work Phone: Start: 10-12-2018 End: 10-12-2018 Antibody varicella-zoster Yovani Orr Work Phone: Start: 10-12-2018 End: 10-12-2018 Assay of ethanol Yovani Orr Work Phone: Start: 10-12-2018 End: 10-12-2018 Assay of ferritin Yovani Orr Work Phone: Start: 10-12-2018 End: 10-12-2018 Assay of iron Yovani Mejias [employer] Work Phone: Start: 10-12-2018 End: 10-12-2018 Assay [...] 10-12-2018 Drug screening cannabinoids natural Yovani Mejias [employer] Work Phone: Start: 10-12-2018 End: 10-12-2018 Hepatitis a antibody haab Yovani Orr Work Phone: Start: 10-12-2018 End: 10-12-2018 Hepatitis b core antibody hbcab total Yovani rOr Work Phone: Start: 10-12-2018 End: 10-12-2018 Hepatitis [...] 10-12-2018 End: 10-12-2018 PSA screening Yovani Mejias [employer] Work Phone: Start: 10-12-2018 End: 10-12-2018 Thromboplastin [...] Kidn ey replaced by transplant Rebeca Gutierrez [employer] Work Phone: Plan of Treatment Date Care Activity Detail Author Start: 09-20-2029 Screening for malignant neoplasm of colon [facility] Start: 07-04-2025 Potassium [Moles/volume] in Serum or Plasma POTASSIUM [facility] Start: 06-20-2025 Potassium [Moles/volume] in Serum or Plasma POTASSIUM [facility] Start: 06-16-2025 End: 06-16-[address] Start: 06-13-2025 Potassium [Moles/volume] in Serum or Plasma POTASSIUM [facility] Start: 05-23-2025 Potassium [Moles/volume] in Serum or Plasma POTASSIUM [facility] Start: 03-28-2025 Potassium [Moles/volume] in Serum or Plasma POTASSIUM [facility] Start: 03-21-2025 Potassium [Moles/volume] in Serum or Plasma POTASSIUM [facility] Start: 02-28-2025 Potassium [Moles/volume] in Serum or Plasma POTASSIUM [facility] Start: 01-23-2025 Potassium [Moles/volume] in Serum or Plasma POTASSIUM [facility] Start: 09-07-2024 End: 09-07-2024 Telemedicine consultation with patient 09/07/2024 3:00 PM EDT Telemedicine Infectious Diseases Care [facility] [address] [facility] 4th [place] [id number] Evan White DO [address] [place], [place] [id number] [facility] Start: 08-31-2024 Screening for malignant neoplasm of lung [facility] Start: 07-31-2024 Influenza vaccination INFLUENZA VACCINE (#1) [facility] Start: 06-17-2024 End: 06-17-[address] Start: 06-17-2024 End: 06-17-[address] [facility] Start: 03-22-2024 Fasting lipid profile LIPID SCREENING [facility] Start: 03-22-2024 Lipid panel [facility] Start: 02-26-2024 End: 02-26-2024 Patient encounter procedure 02/26/2024 9:30 AM EDT Office Visit [facility] [employer] [facility] [address] [place] [address] Candie Almaguer MD [address] [place] [address] [facility] Start: 02-11-2024 End: 02-11-2024 Patient encounter procedure 02/11/2024 10:30 AM EDT Office Visit [facility] [address] [place] [address] Zuly Bruno NP [address] [place] [address] [facility] Start: 02-09-2024 End: 02-09-2024 Telemedicine consultation with patient 02/09/2024 3:30 PM EDT Telemedicine Infectious Diseases Care [facility] [address] [facility] [address] [place] [phone] Hakeem Alamo MD [address] [address] Infectious Diseases Care [facility] Start: 01-15-2024 End: 01-15-[address] Start: 01-15-2024 End: 01-15-[address] Start: 01-06-2024 End: 01-06-2026 Echocardiogram [...] Visit [facility] [address] [place] [address] Zuly Bruno NP [address] [place] [address] [facility] Start: 12-08-2023 End: 09-07-2024 CT Chest WO contrast [facility] Work Phone: Start: 12-01-2023 COVID-19 VACCINE (2 - Moderna risk series) COVID-19 VACCINE (2 - Moderna risk series) [facility] Start: 09-23-2023 End: 09-23-2023 ambulatory [facility] Start: 09-23-2023 End: 09-23-2023 Telemedicine consultation with patient 09/23/2023 4:00 PM EDT Telemedicine Infectious Diseases Care [facility] [address] [place] [address] Hakeem Alamo MD [address] [place] [address] Infectious Diseases Care [facility] Start: 09-15-2023 End: 09-10-2024 ITRACONAZOLE LEVEL [facility] Start: 08-25-2023 End: 08-25-2024 ALLOSCREEN RECIPIENT (POST TX PRA) ALLOSCREEN RECIPIENT (POST TX PRA) Lab Routine Kidney replaced by transplant Aftercare following organ transplant Immunosuppressed status High risk medication use Other general symptoms and signs Abnormal blood chemistry Expected: 08/25/2023, Expires: 08/25/2024 [facility] Comment on above: Expected: 08/25/2023, Expires: Start: 07-31-2023 Influenza vaccination [facility] Start: 06-12-2023 End: 06-12-2023 Patient encounter procedure 06/12/2023 Office Visit Transplant Surgery Steve Latham MBBS [address] [place] [phone] [facility] Start: 03-11-2023 End: 03-11-2023 Telemedicine consultation with patient 03/11/2023 Telemedicine Urology Ryan Yepez MD [address] [facility] [address] [place] [address] [facility] Start: 01-16-2023 End: 01-16-2023 Patient encounter procedure 01/16/2023 Office Visit Transplant Surgery [facility] Start: 10-31-2022 End: 10-31-2022 Patient encounter procedure 10/31/2022 Office Visit Transplant Surgery Steve Latham, LU [address] [place] [address] [facility] Start: 09-10-2022 End: 09-10-2023 PSA screening PSA, SCREENING Lab Routine BPH with obstruction/lower urinary tract symptoms Encounter for screening for malignant neoplasm of prostate Expected: 09/10/2022 (Approximate), Expires: 09/10/2023 [facility] Comment on above: Expected: 09/10/2022 (Approximate), Expi res: 09/10/2023 Start: 08-11-2022 End: 08-11-2022 Patient encounter procedure 08/11/2022 Office Visit Urology Ryan Yepez MD [address] [facility] [address] [place] [address] Urology [facility] [place] Start: 07-31-2022 Influenza vaccination [facility] Start: 07-07-2022 End: 07-07-2022 Patient encounter procedure 07/07/2022 Office Visit Ryan Webster MD [address] [facility] [address] [place] [address] [facility] Start: 07-07-2022 End: 07-07-2023 FLUORO IMAGING FOR UROLOGY [facility] Comment on above: Expected: 07/07/2022, Expires: 3 1 Occurrences starti ng 07/07/2022 until 07/07/2022 Start: 06-27-2022 End: 06-27-2022 Patient encounter procedure 06/27/2022 Office Visit Urology Ryan Yepez MD [address] [facility] [address] [place] [address] [facility] Start: 06-27-2022 End: 06-27-2023 Basic metabolic 2000 panel - Serum or Plasma BASIC METABOLIC PANEL Lab Routine Other hydronephrosis Expected: 06/27/2022, Expires: 06/27/2023 [facility] Comment on above: Expected: 06/27/2022, Expires: Start: 06-27-2022 End: 06-27-2022 Patient encounter procedure 06/27/2022 Appointment Computerized Tomography Scan Ryan Yepez MD [address] [facility] [address] [place] [id number] Department of Radiology Start: 06-15-2022 End: 05-16-2023 CT Abdomen and Pelvis WO contrast CT ABDOMEN/PELVIS WITHOUT CONTRAST Imaging Routine FAYE (acute kidney injury) Expected: 06/15/2022 (Approximate), Expires: 05/16/2023 [facility] Work Phone: Comment on above: Expected: 06/15/2022 (Approximate), Expi res: 05/16/2023 Start: 06-12-2022 End: 06-12-2022 Patient encounter procedure 06/12/2022 Office Visit Transplant Surgery Steve Latham, LU [address] [place] [phone] [facility] Start: 06-11-2022 End: 06-11-2023 BK VIRUS DNA QN, PCR, PLASMA BK VIRUS DNA QN, PCR, PLASMA Lab Routine Kidney replaced by transplant Liver replaced by transplant Abnormal blood chemistry Expected: 06/11/2022, Expires: 06/11/2023 [facility] Comment on above: Expected: 06/11/2022, Expires: Start: 06-04-2022 End: 06-04-2022 Patient encounter procedure 06/04/2022 Office Visit [facility] Start: 10-18-2021 End: 10-18-2021 Patient encounter procedure 10/18/2021 Office Visit Transplant Surgery Steve Latham, LU [address] [place] [address] [facility] Start: 07-31-2021 Influenza vaccination INFLUENZA VACCINE (#1) [facility] Start: 07-26-2021 End: 07-26-2021 Patient encounter procedure 07/26/2021 Office Visit Transplant Surgery [facility] Start: 2021 Prostate specific antigen measurement [facility] Start: 2021 Screening for malignant neoplasm of lung LUNG CANCER SCREENING [facility] Start: 2021 Zoster vaccine hzv live for subcutaneous use ZOSTER (SHINGLES) VACCINE (1 of 2) [facility] Start: 09-20-2020 Colonoscopy COLORECTAL CANCER SCREENING DISCUSSION [facility] Start: 09-20-2020 Screening for malignant neoplasm of colon [facility] Start: 07-31-2019 Influenza vaccination Flu vaccine (#1) [place], [place] Start: 05-22-2019 Annual Wellness Visit (AWV) Annual Wellness Visit (AWV) [place], [place] Start: 04-18-2019 End: 10-19-2019 Ultrasonography of abdomen US ABDOMEN RUQ/LIVER/GB Routine Cirrhosis of liver without ascites, unspecified hepatic cirrhosis type Expected: 04/18/2019 (Approximate), Expires: 10/19/2019 [facility] Work Phone: Comment on above: Expected: 04/18/2019 (Approximate), Expi res: 10/19/2019 Start: 01-25-2019 End: 01-25-2019 Ambulatory 01/25/2019 Office Visit Gastroenterology Christin Elizabeth, [employer]NA[employer] [address] [place] [address] Division of Gastroenterology and Hepatology Gavin Start: 11-19-2018 End: 11-19-2018 Ambulatory 11/19/2018 Appointment Pulmonary Diagnostics [facility] Start: 11-19-2018 End: 11-19-2018 Ambulatory [facility] Start: 10-19-2018 End: 10-19-2018 Ambulatory Ultrasound Jakob Start: 10-12-2018 End: 10-12-2019 Hemoglobin A1c/Hemoglobin.total mass fraction (Bld) HEMOGLOBIN A1C Routine Alcoholic cirrhosis, unspecified whether ascites present Pre-transplant evaluation for liver transplant Expected: 10/12/2018, Expires: 10/12/2019 [facility] Work Phone: Comment on above: Expected: 10/12/2018, Expires: 9 Start: 10-12-2018 End: 10-12-2019 TYPE AND SCREEN - NOT FOR TRANSFUSION TYPE AND SCREEN - NOT FOR TRANSFUSION Routine Alcoholic cirrhosis, unspecified whether ascites present Pre-transplant evaluation for liver transplant Expected: 10/12/2018, Expires: 10/12/2019 [facility] Work Phone: Comment on above: Expected: 10/12/2018, Expires: 9 Start: 07-31-2018 Influenza vaccination INFLUENZA VACCINE (#1) [facility] Work Phone: Start: 2011 Fasting lipid profile LIPID SCREENING [facility] Work Phone: Start: 2011 Lipid screen Lipid screen [place], [place] Start: 1990 DTaP/Tdap/Td vaccine (1 - Tdap) DTaP/Tdap/Td vaccine (1 - Tdap) [place], [place] Start: 1990 Hepatitis B vaccination HEP B VACCINE (1 of 3 - 19+ 3-dose series) [facility] Start: 1990 Hepatitis B Vaccine (1 of 3 - Risk Recombivax 3-dose series) Hepatitis B Vaccine (1 of 3 - Risk Recombivax 3-dose series) [place], [place] Start: 1990 Third diphtheria, tetanus and acellular pertussis (DTaP) vaccination [facility] Start: 1990 Zoster vaccine hzv live for subcutaneous use ZOSTER (SHINGLES) VACCINE (1 of 2) [facility] Start: 1990 [facility] Start: 1989 Tetanus vaccination TETANUS [facility] Start: 1986 HIV screen HIV screen [place], [place] Start: 02-17-1984 HIV screening HIV SCREENING DISCUSSION [facility] Work Phone: Start: 1983 COVID-19 VACCINE (1) COVID-19 VACCINE (1) [facility] Start: 1982 DTaP/Tdap/Td vaccine (1 - Tdap) DTaP/Tdap/Td vaccine (1 - Tdap) [place], [place] Start: 1977 Pneumococcal 0-64 years Vaccine (1 of 3 - PCV13) Pneumococcal 0-64 years Vaccine (1 of 3 - PCV13) [place], [place] Start: 1977 PNEUMOCOCCAL VACCINE SERIES (1 - PCV) PNEUMOCOCCAL VACCINE SERIES (1 - PCV) [facility] Start: 1977 PNEUMOCOCCAL VACCINE SERIES (1 of 2 - PCV) PNEUMOCOCCAL VACCINE SERIES (1 of 2 - PCV) [facility] Start: 1977 [facility] Start: 02-17-1976 COVID-19 VACCINE (#1) COVID-19 VACCINE (#1) [facility] Start: 02-17-1976 [facility] Start: 1971 COVID-19 VACCINE (#1) COVID-19 VACCINE (#1) [facility] Start: 1971 Hepatitis B vaccination HEP B VACCINE (1 of 3 - 3-dose series) [facility] Start: 1971 Medicare Annual Wellness (AWV) Medicare Annual Wellness (AWV) [facility] Start: 1971 Screening for malignant neoplasm of colon [facility] Start: 1971 Tetanus vaccination [facility] BK VIRUS DNA QN, PCR , PLASMA BK VIRUS DNA QN, PCR, PLASMA Lab Routine Kidney replaced by transplant Liver replaced by transplant Abnormal blood chemistry 06/12/2022 3:38 PM EDT [facility] CALCULI, URINARY (KIDNEY STONE) CALCULI, URINARY (KIDNEY STONE) Fluids Routine 05/19/2022 8:16 AM EDT [facility] Work Phone: CANNABINOIDS, QUANT (URINE)THC CONFIRMATION CANNABINOIDS, QUANT (URINE)THC CONFIRMATION Routine Alcoholic cirrhosis, unspecified whether ascites present ESRD (end stage renal disease) on dialysis Pre-transplant evaluation for liver transplant 10/12/2018 12:57 PM [facility] Work Phone: End: 09-10-2024 CHEM 6 (LYTES, BUN CREA) [facility] EBV VCA IGG AB EBV VCA IGG AB R outine Alcoholic cirrhosis, unspecified whether ascites present ESRD (end stage renal disease) on dialysis Pre-transplant evaluation for liver transplant 10/12/2018 12:57 PM [facility] Work Phone: Fungus identified in Unspecified specimen by Culture [facility] HLA TYPING (SOLID ORGAN) HLA TYPING (SOLID ORGAN) Routine Alcoholic cirrhosis, unspecified whether ascites present ESRD (end stage renal disease) on dialysis Pre-transplant evaluation for liver transplant 10/12/2018 12:57 PM [facility] Work Phone: HSV 1 AND 2 IGG ANTIBODY HSV 1 AND 2 IGG ANTIBODY Routine Alcoholic cirrhosis, unspecified whether ascites present ESRD (end stage renal disease) on dialysis Pre-transplant evaluation for liver transplant 10/12/2018 12:57 PM [facility] Work Phone: MR Abdomen WO and W contrast IV MRI ABDOMEN WITH AND WITHOUT CONTRAST Imaging Routine Liver lesion Ordered: 06/17/2024 [facility] Comment on above: Ordered: 06/17/2024 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 specific culture [facility] PLACEMENT NEPHROSTOM Y CATHETER PERCUTANEOUS W/ IMAGE GUIDANCE PLACEMENT NEPHROSTOMY CATHETER PERCUTANEOUS W/ IMAGE GUIDANCE Imaging Routine Hydronephrosis due to obstruction of ureteral orifice FAYE (acute kidney injury) 05/17/2022 11:08 AM EDT [facility] [place] POST VOID RESIDUAL [place] POST VO ID RESIDUAL [place] - OFFICE PERFORMED Routine BPH with obstruction/lower urinary tract symptoms Ordered: 09/10/2022 [facility] Comment on above: Ordered: 09/10/2022 PTH INTACT PTH INTACT Routi ne Alcoholic cirrhosis, unspecified whether ascites present ESRD (end stage renal disease) on dialysis Pre-transplant evaluation for liver transplant 10/12/2018 12:57 PM [facility] Work Phone: RUBEOLA IGG AB (IMMU NE STATUS) RUBEOLA IGG AB (IMMUNE STATUS) Routine Alcoholic cirrhosis, unspecified whether ascites present ESRD (end stage renal disease) on dialysis Pre-transplant evaluation for liver transplant 10/12/2018 12:57 PM [facility] Work Phone: End: 01-16-2024 Standard ECG ECG ECG Routine One Time for 1 Occurrences starting 01/16/2024 until 01/16/2024 [facility] Comment on above: One Time for 1 Occurrences starting 12/31 until 01/16/2024 End: 09-10-2024 TACROLIMUS LEVEL, TROUGH (PRE DRUG LEVEL) [facility] VARICELLA IGG AB (IM M STATUS) VARICELLA IGG AB (IMM STATUS) Routine Alcoholic cirrhosis, unspecified whether ascites present ESRD (end stage renal disease) on dialysis Pre-transplant evaluation for liver transplant 10/12/2018 12:57 PM [facility] Work Phone: Immunizations Immunization Date Immunization Notes Care Provider Zeeshan marquez 11-03-2023 influenza virus vacc ine, unspecified formulation Generic Provider [facility] 11-03-2023 Moderna SARS-CoV-2 50mcg/0.5mL Booster Generic Provider [facility] Payers Date Payer Category Payer Unknown [id number] 2019 Unknown [facility] [id number] 2019-Present [id number] .[id number] 2018 Medicaid MEDICAID [facility] DEPT OF JOB xxxxxxxxxxxx 2018-Present [phone] [address] [place] [address] xxxxxxxxxxxx [id number] .[id number] 2018 Medicaid MEDICAID MEDICAI D [id number] 2018-Present [address] [place] [address] [id number] [id number].3 .883283.315 2018 Medicaid [id number]. 1.13.172.2.7.3 .504541.315 2018 Medicare MEDICARE MEDICAR E PART A AND B xxxxxxxxxxx 2018-Present [phone] [address] [address] [place] [address] xxxxxxxxxxx [id number].3 .851749.315 2018 Medicare [id number] 2018 Medicare MEDICARE MEDICAR E A AND B [id number] 2018-Present [address] [place] [address] [id number] 1.2.840.587446.1.13.172.2.7.3 .386473.315 2018 Medicare 1.2.840.928588. 1.13.172.2.7.3 .683425.315 1971 Unknown [id number] 2.16.840.1.772264.3.579.2.173 1971 Unknown [id number] 2.16.840.1.934840.3.579.2.173 1971 Unknown [id number] 2.16.840.1.564552.3.579.2.173 1971 Unknown [id number] 2.16.840.1.479748.3.579.2.173 1971 Unknown [id number] 2.16.840.1.985018.3.579.2.173 1971 Unknown [id number] 2.16.840.1.257340.3.579.2.173 1971 Unknown [id number] 2.16.840.1.122253.3.579.2.173 1971 Unknown [id number] 2.16.840.1.632901.3.579.2.173 1971 Unknown [id number] 2.16.840.1.939476.3.579.2.647 1971 Unknown [id number] 2.16.840.1.630606.3.579.2.593 1971 Unknown [id number] 2.16.840.1.493866.3.579.2.593 1971 Unknown [id number] 2.16.840.1.218610.3.579.2.593 1971 Unknown [id number] 2.16.840.1.210893.3.579.2.593 1971 Unknown [id number] 2.16.840.1.111991.3.579.2.593 1971 Unknown [id number] 2.16.840.1.614442.3.579.2.593 1971 Unknown [id number] 2.16.840.1.453663.3.579.2.593 1971 Unknown [id number] 2.16.840.1.992198.3.579.2.593 1971 Unknown [id number] 2.16.840.1.217034.3.579.2.593 1971 Unknown [id number] 2.16.840.1.712450.3.579.2.593 1971 Unknown [id number] 2.16.840.1.475298.3.579.2.593 1971 Unknown [id number] 2.16.840.1.335142.3.579.2.593 1971 Unknown [id number] 2.16.840.1.583685.3.579.2.593 1971 Unknown [id number] 2.16.840.1.155933.3.579.2.593 1971 Unknown [id number] 2.16.840.1.148840.3.579.2.593 1971 Unknown [id number] 2.16.840.1.707448.3.579.2.125 9 1971 Unknown [id number] 2.16.840.1.718716.3.579.2.125 9 1971 Unknown [id number] 2.16.840.1.658937.3.579.2.125 9 1971 Unknown [id number] 2.16.840.1.111001.3.579.2.125 9 1971 Unknown [id number] 2.16.840.1.210141.3.579.2.125 9 1971 Unknown [id number] 2.16.840.1.973008.3.579.2.125 9 1971 Unknown [id number] 2.16.840.1.709197.3.579.2.125 9 1971 Unknown [id number] 2.16.840.1.948309.3.579.2.125 9 1971 Unknown [id number] 2.16.840.1.618520.3.579.2.125 9 1971 Unknown [id number] 2.16.840.1.687815.3.579.2.125 9 1971 Unknown [id number] 2.16.840.1.392986.3.579.2.125 9 1971 Unknown [id number] 2.16.840.1.090394.3.579.2.125 9 1971 Unknown [id number] 2.16.840.1.604973.3.579.2.125 9 1971 Unknown [id number] 2.16.840.1.544436.3.579.2.125 9 1971 Unknown [id number] 2.16.840.1.843178.3.579.2.594 1971 Unknown [id number] 2.840.1.028467.3.579.2.594 1971 Unknown [id number] 2.16840.1.272935.3.579.2.594 1971 Unknown [id number] 2.840.1.202648.3.579.2.594 1971 Unknown [id number] 2.16840.1.661469.3.579.2.594 1971 Unknown [id number] 2.840.1.575076.3.579.2.594 1971 Unknown [id number] 2.16840.1.443530.3.579.2.594 1971 Unknown [id number] 2.16840.1.621745.3.579.2.594 1971 Unknown [id number] 2.16840.1.851500.3.579.2.594 1971 Unknown [id number] 2.840.1.427769.3.579.2.594 1971 Unknown [id number] 2.16840.1.737478.3.579.2.594 1971 Unknown [id number] 2.16.840.1.291372.3.579.2.594 1958 Medicaid [id number] 1958 Medicare [id number] Social History Date Type Detail Facility Start: 07-19-2018 End: 10-19-2018 Tobacco smoking status NHIS Former smoker [facility] Start: 07-19-1988 End: 05-14-2018 History of tobacco use Current smoker [facility] Work Phone: Start: 07-19-1988 End: 05-14-2018 History of tobacco use Cigarette Smoker [facility] Work Phone: Start: 10-19-2018 End: 06-17-2024 Cigarettes smoked current (pack per day) - Reported [facility] End: 07-19-1994 History of tobacco use Chews Tobacco [facility] Work Phone: Start: 1970 Sex Assigned At Not on file [facility] Work Phone: Start: 11-03-2018 Alcohol intake Current non-drinker of alcohol (finding) [place], [place] Start: 06-22-2018 Alcohol Comment Hx of alcoholism [place], [place] Start: 11-03-2018 End: 06-17-2024 Alcohol intake No [facility] Start: 07-19-2018 Tobacco use and exposure Former user [facility] Start: 09-06-2020 End: 06-17-2024 Alcohol intake Ex-drinker (finding) [facility] Start: 07-19-2018 Alcohol Comment stopped 05/14/2018 [facility] Start: 05-05-2022 End: 01-16-2023 Exposure to SARS-CoV-2 (event) Not sure [facility] Start: 07-07-2018 Gender identity Identifies as male gender (finding) [facility] Start: 01-16-2022 Sexual orientation Heterosexual (finding) [facility] Start: 11-03-2023 Tobacco use and exposure [...] Dates [id number] Start: 05-23-2020 [id number] Start: 04-12-2020 [id number] [facility] Start: 05-17-2022 Comment on above: Description: Implant time-out completed by intra-procedural staff including this RN, missile tracking technician, and performing physician. The following was [...] goal Clinical Notes 06-14-2021 to 06-23-2024 Starla Edwrads - 06/23/2024 8:51 AM Hannah Max DO [...] Required: No Receive/Pickup Date: 06/29/2024 Shipping Address: [address] [place] [address] [address] Contact Info: Specialty ([place]) [phone] Jakob [phone] [facility] [phone] Raheem [phone] Bedside Delivery ([facility]) [phone] documented in this encounter [facility] 06-17-2024 History of Present illness Narrative -Referring Provider for today's consult: Self, Self -Primary Care Provider: Zuly Bruno History of Present Illness George Styles is a 54 y.o. male who presents to the [facility] Transplant Hepatology Clinic today for follow-up [...] Left; Surgeon: Jyoti Bryant MD, PhD; Location: [facility] MAIN OR PLACEMENT NEPHROSTOMY CATHETER PERCUTANEOUS W/ IMAGE GUIDANCE 05/17/2022 Surgeon: Enzo Heart DO; Location: [facility] INTERVENTIONAL RADIOLOGY (VIR) LIVER TRANSPLANT, ORTHOTOPIC N/A 04/12/2020 Laterality: N/A; Surgeon: LU Palma; Location: [facility] SAME DAY SURGERY MAIN OR KIDNEY TRANSPLANT W/O TABLE MOUNTAIN NEPHRECTOMY N/A 04/12/2020 Laterality: N/A; Surgeon: LU Palma; Location: [facility] SAME DAY SURGERY MAIN OR OTHER SURGICAL [...] 0.2 06/13/2024 Explant Pathology Pathologic Diagnosis A. [place] liver, orthotopic liver transplant resection (1458 gram): [...] up in 1 year. Daisha Max DO Institute Scientist Gastroenterology, Hepatology and Nutrition [facility] Pager: [phone] Images from the original note were not included. 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 Mis Director: Anayeli Burt Date of Liver Transplant: 04/13/2020 (Kidney), 04/13/2020 (Liver) 4 years, 2 months post Liver/Kidney Transplant Primary Disease: Hypertensive Nephrosclerosis Transplant Shadowgraph Operator: Erma Roe/ Daisha Max Primary Care [...] LAB AND PHARMACY: None Specified [id number] [place] [address] - [address] [facility] [address] [facility] [address] [facility] [address], [address] [place] [address] [id number] [place] [address] [address] [facility] [address] [facility] [address] [place] [id number] [facility] Jakob [address], [address] [place] [address] ROS and SCREEN: Chest Pain: negative Cough: [...] year: no Do you follow with a Aircraft Refueler? yes Do you have a Primary Care [...] ADDRESS WITH PHYSICIAN: documented in this encounter [facility] 06-17-2024 Instructions Ashlee Fair RN - 06/17/2024 10:00 AM EDT - No medication changes from a liver standpoint - A MRI Abdomen has been ordered today. Please call central scheduling at [phone] to schedule or take paper copy to your local hospital - Return to clinic 06/16/2025 TRANSPLANT HEPATOLOGY 3, [facility] as scheduled documented in this encounter [facility] 06-17-2024 History of Present illness Narrative Images from the original note were not included. George Styles is a 54 y.o. 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 No longer follows with a local svp of digital. History of Present Illness: Since George was [...] and lab results. Rebeca Gutierrez MSN, RN, INTERNET MERCHANT-BC, CCTN Certified Nurse Practitioner [facility] [address] [facility] [address] documented in this encounter [facility] 06-17-2024 Instructions JEANNA Hess - 06/17/2024 9:30 AM EDT Tacrolimus - increase to 0.2 mg packet three time per day; goal 3 to 5 ng/dL ; when the itraconazole stops 09/03/2024, reduce to 0.5 mg twice daily. Once your tacrolimus level is 3-5 ng/dL, you may reduce labs to every other week. documented in this encounter [facility] 05-26-2024 History of Present illness Narrative [facility] OP RX OUTREACH ADVANCED: Call Information: Date and Time of Contact: 05/26/2024 4:35 PM Method of Contact: By Phone Contact Type: Prescriptions Contactor: [facility] OP Contactee: Patient Contact Outcome: Left message and Follow-up Contact Info: Specialty ([place]) [phone] Jakob [phone] [facility] [phone] Raheem [phone] Bedside Delivery ([facility]) [phone] [facility] OP RX OUTREACH ADVANCED: Call Information: Date and Time of Contact: 05/30/2024 4:52 PM Method of Contact: By Phone Contact Type: Prescriptions Contactor: Patient Contactee: [facility] OP Shipping/Pickup: Medicare B Refill?: No Medication Name: Myco sod 360mg, Prograf 0.2mg Delivery Method: Ship Delivery Location: Home Signature Required: No Receive/Pickup Date: 06/06/2024 Shipping Address: [address] [place] [address] Contact Info: Specialty ([place]) [phone] [facility] [phone] [facility] [phone] Raheem [phone] Bedside Delivery ([facility]) [phone] documented in this encounter [facility] 05-13-2024 Note [place] Cardiology - [facility] Subjective George Styles is a [...] Name: Prograf 0.2mg pack Contact Info: Specialty ([place]) [phone] [facility] [phone] [facility] [phone] Raheem [phone] Bedside Delivery ([facility]) [phone] [facility] OUTREACH ADVANCED: Call Information: Date and Time of Contact: 03/28/2024 3:58 PM Method of Contact: By Phone Contact Type: Prescriptions Contactor: [facility] OP Contactee: Patient Contact Outcome: Left message and Call back later Shipping/Pickup: Medication Name: Mycophenolate, prograf Contact Info: Specialty ([place]) [phone] [facility] [phone] [facility] [phone] Raheem [phone] Bedside Delivery ([facility]) [phone] [facility] RX OUTREACH ADVANCED: Call Information: Method of Contact: By Phone Contact Type: Prescriptions Contactor: Patient Contactee: [facility] OP Shipping/Pickup: Medicare B Refill?: No Medication Name: Mycopheolate 360mg and Prograf Delivery Method: Ship Delivery Location: Home Signature Required: No Receive/Pickup Date: 04/04/2024 Shipping Address: [address] [place] [address] [address] Contact Info: Specialty ([place]) [phone] [facility] [phone] [facility] [phone] Raheem [phone] Bedside Delivery ([facility]) [phone] documented in this encounter [facility] 03-24-2024 History of Present illness Narrative [facility] OUTREACH ADVANCED: Call Information: Date and Time of Contact: 03/24/2024 4:14 PM Method of Contact: By Phone Contact Type: Prescriptions Contactor: [facility] OP Contactee: Patient Contact Outcome: Left message Shipping/Pickup: Medication Name: Prograf 0.2mg pack Contact Info: Specialty ([place]) [phone] [facility] [phone] [facility] [phone] Raheem [phone] Bedside Delivery ([facility]) [phone] [facility] OP RX OUTREACH ADVANCED: Call Information: Date and Time of Contact: 03/28/2024 3:58 PM Method of Contact: By Phone Contact Type: Prescriptions Contactor: [facility] OP Contactee: Patient Contact Outcome: Left message and Call back later Shipping/Pickup: Medication Name: Mycophenolate, prograf Contact Info: Specialty ([place]) [phone] [facility] [phone] [facility] [phone] Raheem [phone] Bedside Delivery ([facility]) [phone] [facility] RX OUTREACH ADVANCED: Call Information: Method of Contact: By Phone Contact Type: Prescriptions Contactor: Patient Contactee: [facility] OP Shipping/Pickup: Medicare B Refill?: No Medication Name: Mycopheolate 360mg and Prograf Delivery Method: Ship Delivery Location: Home Signature Required: No Receive/Pickup Date: 04/04/2024 Shipping Address: [address] [place] [address] [address] Contact Info: Specialty ([place]) [phone] [facility] [phone] [facility] [phone] Raheem [phone] Bedside Delivery ([facility]) [phone] [facility] RX OUTREACH ADVANCED: Pre-Verification/Specialty Assessment/Disease [...] Within normal limits Contact Info: Specialty ([place]) [phone] Jakob [phone] [facility] [phone] Raheem [phone] Bedside Delivery ([facility]) [phone] documented in this encounter [facility] 03-02-2024 History of Present illness [...] del of broth Contact Info: Specialty ([place]) [phone] [facility] [phone] [facility] [phone] Raheem [phone] Bedside Delivery ([facility]) [phone] [facility] OP RX OUTREACH ADVANCED: Call Information: Date and Time of Contact: 03/02/2024 3:49 PM Method of Contact: By Phone Contact Type: Prescriptions Contactor: [facility] OP Contactee: Patient Contact Outcome: Left message and Follow-up Shipping/Pickup: Medication Name: Myco 360mg and Prograf 0.2mg Contact Info: Specialty ([place]) [phone] [facility] [phone] [facility] [phone] Raheem [phone] Bedside Delivery ([facility]) [phone] [facility] RX OUTREACH ADVANCED: Call Information: Date and Time of Contact: 03/02/2024 4:08 PM Method of Contact: By Phone Contact Type: Prescriptions Contactor: [facility] OP Contactee: Patient Shipping/Pickup: Medicare B Refill?: No Medication Name: Myco 360 / prograf 0.2 Delivery Method: Ship Delivery Location: Home Signature Required: No Receive/Pickup Date: 03/03/2024 Shipping Address: [address] [place] [address] [address] Contact Info: Specialty ([place]) [phone] [facility] [phone] [facility] [phone] Raheem [phone] Bedside Delivery ([facility]) [phone] documented in this encounter [facility] 02-26-2024 History of Present illness [...] presents to the HF Clinic at the [facility] on 02/26/2024 for initial evaluation of [...] Left; Surgeon: Jyoti Bryant MD, PhD; Location: [facility] MAIN OR PLACEMENT NEPHROSTOMY CATHETER PERCUTANEOUS W/ IMAGE GUIDANCE 05/17/2022 Surgeon: Enzo Heart DO; Location: [facility] INTERVENTIONAL RADIOLOGY (VIR) LIVER TRANSPLANT, ORTHOTOPIC N/A 04/12/2020 Laterality: N/A; Surgeon: LU Palma; Location: [facility] SAME DAY SURGERY MAIN OR KIDNEY TRANSPLANT W/O TABLE MOUNTAIN NEPHRECTOMY N/A 04/12/2020 Laterality: N/A; Surgeon: LU Palma; Location: [facility] SAME DAY SURGERY MAIN OR OTHER SURGICAL [...] qd Antithrombotic: no Statin: no ICD: NA AIRFLIGHT ATTENDANTS SUPERVISOR: NA CV Test results: ECHOCARDIOGRAM 01/18/2024 [...] will be BP control. Candie Almaguer M.D. clinical trial educator Advanced Heart Failure Program Division of Cardiovascular Medicine [facility] [email or web address] [phone] fax [phone] documented in this encounter [facility] 02-26-2024 Instructions Marsha Mckeon RN - 02/26/2024 9:30 AM EDT The following instructions were given today: Labs today Follow up with Dr. Almaguer as needed. Your after visit summary (AVS) is viewable in [facility] My Chart. Call RN if you have cardiac questions/concerns M-F 8 to 4:30 ; office # [phone], option 6, then option 2. Guidelines for home management: 1. Continue to monitor weight first thing each morning. 2. Report to the CHF CLINIC ([phone]) any significant weight change. Remember that weight [...] labs/tests run outside of the [facility] and you do not hear from us 1-2 days after they are performed, you must call us to ensure we received the results. Office fax # [phone]. No news does not necessarily mean that your tests are normal, it could mean we did not get the results. For questions/updates: please provide your name with spelling, date of and question or update All calls are prioritized and responses researched, if possible, prior to calls being returned. Call Scheduling for any appointment/procedure verification or changes [phone], option 7 or [facility] Heart Schedulers at [phone], option 1. documented in this encounter [facility] 01-23-2024 Nurse Note Jakob wrap [...] understanding on picking up needed prescriptions at [facility] as listed on discharge summary. Patient denies any unanswered questions at this time. Patient has been discharged with all of their belongings, transported via wheelchair on oxygen to front entrance for brother to transport home on home oxygen supply. [facility] 01-23-2024 Miscellaneous Notes Jakob wrap [...] understanding on picking up needed prescriptions at [facility] as listed on discharge summary. Patient [...] Pain): verbalization of pain descriptors George Styles ([id number]) PRE OPERATIVE DIAGNOSIS High output congestive heart failure [I50.83] POST OPERATIVE DIAGNOSIS Post-Op Diagnosis Codes: * High output congestive heart failure [I50.83] PROCEDURE PERFORMED Procedure(s) (LRB): LIGATION ANGIOACCESS AVF (Left) Resection of large aneurysmic vein PRIMARY CLOSURE Yes INTRAOPERATIVE FINDINGS No significant abnormalities SURGEON Surgeons and Role: * Jyoti Bryant MD, PhD - Primary ANESTHESIOLOGIST Anesthesiologist: Celena Tiwari MD; Kehinde Gutierrez MD CORPORATE DEVELOPMENT INTERN: Raheem Jasso APRN-CORPORATE DEVELOPMENT INTERN Motor Vehicles Supervisor Assisting: Mini Khan MD SURGICAL STAFF Sql Server Architect: Zoila Lawrence RN Relief Sql Server Architect: Marimar Saravia RN Relief Scrub: Briseyda Self [...] patient breathing easily. Report received from surgical dressing maker and report received from anesthesiology. Pt arrived [...] Axillary block. SURGEON(S): Jyoti Bryant MD, PHD HAND WINDER: Mynor Fall MD ESTIMATED BLOOD LOSS: Minimal. [...] for the entire procedure. Dictated By: Jyoti Braynt MD, PHD Jyoti Bryant MD, PHD ATTENDING AR/Constanza JOB: [id number] DOC: [id number] Patient has been asleep this shift. He [...] overnight coverage, Jasper Gastelum MD, via pager #[phone] Pt- George Styles. Sarah 1082. TM1. Was wondering if he can have his Melatonin order increased to 6mg. Per pt, he usually takes 8mg at home. -SAMI Duffy #[phone] Tati Charles RN Internal Medicine Daily Progress Note Patient: George Styles, 1970, [id number] Physician: Arelis Mera MD, PGY3, Pager #[phone], TM1 service Assessment/Plan: George Styles is a [...] 5mg CAD: non-obstructive CAD on [facility] 2018. - continue home aspirin [...] Mera MD Mr. Styles was admitted to [address] [place] [address]. On admission to [facility], from outside facility a dual RN initial assessment of skin condition was performed by Izzy Gutierrez RN and Leroy Singleton RN. Skin Assessment: Skin within defined limits:Yes Jose Score: 20 Wound Vision Ux Developer images obtained: No LDA Added: No Based [...] when available. documented in this encounter [facility] 01-23-2024 Nurse Note Home Oxygen [...] at 4L of oxygen is also required.) [facility] 01-23-2024 History of Present illness [...] Daily Kelvin Pacheco MD, MBBS professor of business administration Transplant nephrology Surgery Post-Op Check Note George [...] monitor Leonel Harris DO General Surgery Pager [phone] CM went to bedside to talk with patient. Patient states he has home oxygen through [employer]. He uses 2.5 LNC around the clock. Patient states his brother will bring a tank for discharge. Anticipate patient will discharge tomorrow AM. Brother updated. Girish Oro RN, BSN Clinical Sales Enablement Consultant Please note that I am a float patient case coordinator and may not cover the same service every day. Please call the main Case Management office at [phone] for up-to-date coverage. Verified patients identity using [...] Daily Progress Note Patient: George Styles, 1970, [id number] Physician: Yury Ozuna MD, PGY1, Pager #[phone], BP5 service Assessment/Plan: George Styles is a 53 [...] by transplant surgery on 01/22 (NPO at me, updated type & screen) S/p Liver-Kidney Transplant [...] 5mg CAD: non-obstructive CAD on [facility] 2018. - continue home aspirin [...] with the Nutrition plan outlined in the Glue Mounter Operator s note. DVT prophylaxis with lovenox [...] note. Kelvin Pacheco MD, MBBS professor of business administration Transplant nephrology Patient seen and examined at [...] AC Kelvin Pacheco MD, LU professor of business administration Transplant nephrology Images from the original note were not included. Internal Medicine Daily Progress Note Patient: George Styles, 1970, [id number] Physician: Yury Ozuna MD, PGY1, Pager #[phone], AB7 service Assessment/Plan: George Styles is a 53 [...] 5mg CAD: non-obstructive CAD on [facility] 2018. - continue home aspirin [...] with the Nutrition plan outlined in the Glue Mounter Operator s note. DVT prophylaxis with lovenox [...] Provider: Zuly Bruno NP [facility] Other Comments: Patient reported his Last Home Dose of mycophenolate and tacrolimus was on 01/15/24 at 0700. Medications that need removed from Outside Medication Reconciliation list: Please remove all medications. Please feel free to contact me with any further questions. Name: Heidy Chatman Phone #: [phone] Date/Time: 01/19/2024 12:08 PM Time Spent: 15 minutes Associated attestation - Dorian Fidelina Ortiz [facility] - 01/19/2024 12:41 PM EST Department of Pharmacy Admission Medication Reconciliation Note Patient: George Styles Room/Bed: 1082/A I have reviewed the home medication list with the Service Engine Repairer. The home medication list status is: complete. All changes to the home medication list have been updated in [facility]. Updated SUPPORT ENGINEER Med List: Prior to Admission Medications [...] questions. Name: Fidelina Alarcon Lydia Phone #: [phone] Date/Time: 01/19/2024 12:41 PM Internal Medicine Daily Progress Note Patient: George Styles, 1970, [id number] Physician: Yury Ozuna MD, PGY1, Pager #[phone], TM1 service Assessment/Plan: Acute Hypoxic Respiratory Insufficiency [...] 5mg CAD: non-obstructive CAD on [facility] 2018. - continue home aspirin [...] with the Nutrition plan outlined in the Glue Mounter Operator s note. DVT prophylaxis with lovenox [...] Daily Kelvin Pacheco MD, MBBS professor of business administration Transplant nephrology Internal Medicine Daily Progress Note Patient: George Styles, 1970, [id number] Physician: Yury Ozuna MD, PGY1, Pager #[phone], TM1 service Assessment/Plan: Updates: - continued diuresis [...] 5mg CAD: non-obstructive CAD on [facility] 2018. - continue home aspirin [...] with the Nutrition plan outlined in the Glue Mounter Operator s note. DVT prophylaxis with lovenox [...] note. Kelvin Pacheco MD, LU professor of business administration Transplant nephrology Pt known to natural science manager from previous admissions. Provided emotional and spiritual support. Patient shared about: family support, medical course Tank House Operator provided: - Supportive presence - Active listening - Validation of feelings/emotions Patient encouraged to request a natural science manager as needed. Chaplains are available in-house 24 hours a day and 7 days a week. For urgent matters in [facility], please page [phone]. If the request is not urgent, please enter a consult. Consults are responded to within 24 hours. Senior Staff Tank House Operator Angie Singh Mdiv, [facility] Kirk [phone] [email or web address] On-call TYLOR: call center coordinator Raheem: 22/06 Pager ,[facility], and Brock Hernandez Pager [phone] 01/18/24 1342 Clinical Encounter Type Visited With Patient Visit Type Introduction Pastoral Time Spent 15 min Referral Other (See Comment) (rounding) Spiritual Assessment Emotional Observation Coping well;Anxiety Hope Observation Specific hope focus Support Observation By Family Interventions Provided Active listening;Supportive presence Facilitated Verbalization of feelings;Identifying support system;Identifying Sources of spiritual well-being Explored Expectations;Treatment decisions Flue Dust Laborer Education Flue Dust Laborer Service Available Yes Educated Patient Outcomes Patient [...] interaction. Name: Fidelina Alarcon RPH Phone #: [phone] Date/Time: 01/18/2024 9:56 AM Discharge Planning Patient [...] Yes Name and Contact information: Gian Jensen ([phone]) Would you like to add additional adult [...] Is the patient from a facility or jail?: No Patient lives with: Alone Living Environment: [...] oxygen?: Yes Oxygen Provider and Contact : Wurl Liter-Flow?: Order for oxygen use?: unknown at [...] patient on Anticoagulation? 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 : No Employed?: Disabled Coping/Stress Concerns about patient s coping and stress?: No Concerns about patient s caregiver s coping and stress?: No Values and Beliefs Cultural or catholic practices that may impact discharge planning and/or [...] Plan 1. Identified self and role as Sales Enablement Consultant. 2. Confirmed and updated demographics and treatment team. 3. Sales Enablement Consultant will continue to follow with medical team for any other additional discharge needs. Kasandra DON RN [facility] [phone] *Please note I am float CM and work Thursday and Thursday every other week. Please call [phone] for assist in my absence. Internal Medicine Daily Progress Note Patient: George Styles, 1970, [id number] Physician: Yury Ozuna MD, PGY1, Pager #[phone], TM1 service Assessment/Plan: Updates: - continue diuresis [...] 5mg CAD: non-obstructive CAD on [facility] 2018. - continue home aspirin [...] ordered 2D echo. Kevin Sage MD, FASN Institute Scientist of Clinical Medicine [facility] documented in this encounter [facility] 01-23-2024 Plan of care note [...] Guideline (CPG) Outcome: Progressing Flowsheets (Taken 01/23/2024 0680) Related Risk Factors (Acute Pain): surgery Signs and Symptoms (Acute Pain): verbalization of pain descriptors [facility] 01-22-2024 Hospital Discharge instructions Arelis [...] your doctor for further instructions. Please call [phone], Option 1 or [phone] to schedule your appointment with the Heart Failure Clinic. Arelis Mera MD - 01/22/2024 3:08 PM EST You can change your dressing 48 hours from the procedure The following attachments cannot be sent through Care Everywhere.Heart Failure: Avoiding Triggers (Armenian)Heart Failure: Limiting Sodium (Armenian)Pain and Pain Control ([facility]) (Armenian)documented in this encounter [facility] 01-22-2024 Surgery Postoperative evaluation and management note George Styles ([id number]) PRE OPERATIVE DIAGNOSIS High output congestive heart failure [I50.83] POST OPERATIVE DIAGNOSIS Post-Op Diagnosis Codes: * High output congestive heart failure [I50.83] PROCEDURE PERFORMED Procedure(s) (LRB): LIGATION ANGIOACCESS AVF (Left) Resection of large aneurysmic vein PRIMARY CLOSURE Yes INTRAOPERATIVE FINDINGS No significant abnormalities SURGEON Surgeons and Role: * Jyoit Bryant MD, PhD - Primary ANESTHESIOLOGIST Anesthesiologist: Celena Tiwari MD; Kehinde Gutierrez MD CORPORATE DEVELOPMENT INTERN: Raheem M Dando, INTERNET MERCHANT-CORPORATE DEVELOPMENT INTERN Motor Vehicles Supervisor Assisting: Mini Khan MD SURGICAL STAFF Sql Server Architect: Zoila Lawrence RN Relief Sql Server Architect: Marimar Saravia RN Relief Scrub: Briseyda Self Scrub Person: Cinda Mai RN Resident Assisting: Leonel Harris DO Fellow: Miki Mcgowan MD, MBBS COMPLICATIONS None ESTIMATED BLOOD LOSS Minimal SPECIMENS No specimen sent * No specimens in log * Jyoti Bryant MD, PhD January 22, 2024 1:34 PM [facility] Work Phone: 01-22-2024 Nurse Note Arrived to PACU assisted by anesthesiology. Connected to monitors. Turned side to side, OR linens removed, repositioned. Airway patent, patient breathing easily. Report received from surgical dressing maker and report received from anesthesiology. Pt arrived awake. VSS. Sats slightly low. Pulm rehab used. Sats currently 3lpm @ 93%. Pt states he uses CPAP nocturnally. A&Ox4. Nerve block left arm, elevated. [facility] 01-22-2024 Surgery Postoperative evaluation and [...] Axillary block. SURGEON(S): Jyoti Bryant MD, PHD HAND WINDER: Mynor Fall MD ESTIMATED BLOOD LOSS: Minimal. [...] Jyoti Bryant MD, PHD ATTENDING SHANNON/Constanza JOB: [id number] DOC: [id number] [facility] 01-22-2024 Plan of care note [...] 194 Plan Of Care Reviewed With: patient [facility] 01-20-2024 Consult note Associated Order (s): IP CONSULT TO SURGERY - TRANSPLANT (RENAL) Images from the original note were not included. TRANSPLANT SURGERY CONSULT NOTE: Consult: 01/20/2024, 4:03 PM Gunite Nozzle Operator: Starla Morris MD Reason for Consult: Requesting Dr Carson Bryant for AVF revision/closure given new onset high output heart failure George Styles is a 53 y.o. male CURRENT HOSPITALIZATION LOS: Admit Date: 01/16/2024 [facility] LOS: 4 days George Styles [...] GUIDANCE 05/17/2022 Surgeon: Enzo Heart DO; Location: [facility] INTERVENTIONAL RADIOLOGY (VIR) LIVER TRANSPLANT, ORTHOTOPIC N/A 04/12/2020 Laterality: N/A; Surgeon: LU Palma; Location: [facility] SAME DAY SURGERY MAIN OR KIDNEY TRANSPLANT W/O TABLE MOUNTAIN NEPHRECTOMY N/A 04/12/2020 Laterality: N/A; Surgeon: LU [...] seen and staffed with Dr. Mcgowan fellow system controller Thank you, Starla Morris MD Associated attestation - Jyoti Bryant MD, PhD - 01/22/2024 10:54 AM EST Beata Bryant MD, PhD, have independently seen and examined the patient, reviewed the labs, discussed the patient with the fellow/resident and agree with the note. [facility] Work Phone: 01-20-2024 Consult note Associated Order (s): IP CONSULT TO SURGERY - TRANSPLANT (RENAL) Images from the original note were not included. TRANSPLANT SURGERY CONSULT NOTE: Consult: 01/20/2024, 4:03 PM Gunite Nozzle Operator: Starla Morris MD Reason for Consult: Requesting Dr Carson Bryant for AVF revision/closure given new onset high output heart failure George Styles is a 53 y.o. male CURRENT HOSPITALIZATION LOS: Admit Date: 01/16/2024 [facility] LOS: 4 days George Styles [...] GUIDANCE 05/17/2022 Surgeon: Enzo Heart DO; Location: [facility] INTERVENTIONAL RADIOLOGY (VIR) LIVER TRANSPLANT, ORTHOTOPIC N/A 04/12/2020 Laterality: N/A; Surgeon: LU Palma; Location: [facility] SAME DAY SURGERY MAIN OR KIDNEY TRANSPLANT W/O TABLE MOUNTAIN NEPHRECTOMY N/A 04/12/2020 Laterality: N/A; Surgeon: LU Palma; Location: [facility] SAME DAY SURGERY MAIN OR OTHER SURGICAL [...] seen and staffed with Dr. Mcgowan fellow system controller Thank you, Starla Morris MD Associated attestation [...] DAY SURGERY MAIN OR KIDNEY TRANSPLANT W/O TABLE MOUNTAIN NEPHRECTOMY N/A 04/12/2020 Laterality: N/A; Surgeon: LU [...] (order for outpatient) Please SecureChat or Call ([phone]) for any questions. Await attending attestation for final recommendations. Hank Noel MD Division of Gastroenterology, Hepatology, and Nutrition Clinical Fellow, PGY-5 Pager: [phone] For urgent/stat calls or consults 5pm to 7am, please page the on-call GI fellow on QFantasy Shoppera. [facility]--> Internal Medicine--> Gastroenterology, Hepatology, & Nutrition--> 1st Call Fel Alysia For urgent/stat calls or consults 7am to 5pm during the weekend, please page the on-call GI fellow on QGenda. [facility]--> Internal Medicine--> Gastroenterology, Hepatology, & Nutrition--> All Hep & East Wknd Cons Fel Day For follow up questions regarding this patient 7am to 5pm during the weekday, contact the Hepatology consults fellow or CARLOS A on QGenda. [facility]--> Internal Medicine--> Gastroenterology, Hepatology, & Nutrition--> [...] Estrada MD, MSc documented in this encounter [facility] 01-19-2024 Nurse Note 01/19/24 0900 [...] rest, 95-96% when talking/moving. Paulette Cordon RN [facility] 01-19-2024 Nurse Note Paged overnight coverage, Jasper Gastelum MD, via pager #[phone] Pt- George Styles. Sarah 1082. TM1. Was wondering if he can have his Melatonin order increased to 6mg. Per pt, he usually takes 8mg at home. -SAMI Duffy #[phone] Tati Charles RN [facility] 01-18-2024 Consult note Associated Order [...] 04/12/2020 Laterality: N/A; Surgeon: LU Palma; Location: [facility] SAME DAY SURGERY MAIN OR KIDNEY TRANSPLANT W/O TABLE MOUNTAIN NEPHRECTOMY N/A 04/12/2020 Laterality: N/A; Surgeon: LU Palma; Location: [facility] SAME DAY SURGERY MAIN OR OTHER SURGICAL [...] (order for outpatient) Please SecureChat or Call ([phone]) for any questions. Await attending attestation for final recommendations. Hank Noel MD Division of Gastroenterology, Hepatology, and Nutrition Clinical Fellow, PGY-5 Pager: [phone] For urgent/stat calls or consults 5pm to 7am, please page the on-call GI fellow on Infinity Augmented Realitya. [facility]--> Internal Medicine--> Gastroenterology, Hepatology, & Nutrition--> 1st Call Fel Alysia For urgent/stat calls or consults 7am to 5pm during the weekend, please page the on-call GI fellow on Infinity Augmented Realitya. [facility]--> Internal Medicine--> Gastroenterology, Hepatology, & Nutrition--> All Hep & East Wknd Cons Fel Day For follow up questions regarding this patient 7am to 5pm during the weekday, contact the Hepatology consults fellow or CARLOS A on Chartbeat. [facility]--> Internal Medicine--> Gastroenterology, Hepatology, & Nutrition--> All Hep Consult Fel Day OR Transplant Hep Consults CARLOS A Day Associated attestation - Michael Estrada MD, UL - 01/19/2024 8:32 AM EST ATTENDING STATEMENT: [...] for outpatient) Michael Estrada MD, MSc [facility] Work Phone: 01-16-2024 Plan of care note Internal Medicine Daily Progress Note Patient: George Styles, 1970, [id number] Physician: Arelis Mera MD, PGY3, Pager #[phone], TM1 service Assessment/Plan: George Styles is a [...] 5mg CAD: non-obstructive CAD on [facility] 2018. - continue home aspirin [...] on rounds. Signed, Arelis Mera MD [facility] 01-16-2024 Nurse Note Mr. Styles was admitted to [address] [place] [address]. On admission to [facility], from outside facility a dual RN initial assessment of skin condition was performed by Izzy Gutierrez, RN and Leroy Singleton, SAMI. Skin Assessment: Skin within defined limits:Yes Jose Score: 20 Wound Vision Ux Developer images obtained: No LDA Added: No Based [...] closest to nurses station when available. [facility] 01-16-2024 History and physical note Images from the original note were not included. Internal Medicine Admission History & Physical Patient: George Styles, 1970, [id number] Physician: Timothy Joseph MD, PGY1, Pager #[phone], TM 1 service Date of face to [...] GUIDANCE 05/17/2022 Surgeon: Enzo Heart DO; Location: [facility] INTERVENTIONAL RADIOLOGY (VIR) LIVER TRANSPLANT, ORTHOTOPIC N/A 04/12/2020 Laterality: N/A; Surgeon: LU Palma; Location: [facility] SAME DAY SURGERY MAIN OR KIDNEY TRANSPLANT W/O TABLE MOUNTAIN NEPHRECTOMY N/A 04/12/2020 Laterality: N/A; Surgeon: LU Palma; Location: [facility] SAME DAY SURGERY MAIN OR OTHER SURGICAL [...] itraconazole Fax results to: Dr. White - [phone] Transplant Neph - [phone] Gabapentin 400 MG capsule Sig: Take 1 [...] erythema: Skin: No jaundice or rash Neuro: gem setter 3-7, 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 Strength grossly [...] 5mg CAD: non-obstructive CAD on [facility] 2018. - continue home aspirin 81mg daily Gout: continue home allopurinol 200mg daily BPH: continue home flomax 0.4mg daily Complexity. Obesity Body mass index is 32.8 kg/m . - Follow with PCP for dietary and lifestyle modifications. Any conditions listed below are present on admission unless otherwise specified. . DVT prophylaxis with lovenox Disposition: admitted to [facility] Code status is Full Staffed [...] Pierson, Luisa Steven, Renee Rivera, Daisha Max Mis Director: José Miguel Garnica All Txt: 04/13/2020 (Kidney), [...] results found for: CYCLOSPORIN , CYCLOSPORIN2 , [id number] , CYCLORAND No results found for: SIROLIMUS [...] request in chart. Kevin Sage MD Pager [phone] [facility] 01-16-2024 History and physical note Images from the original note were not included. Internal Medicine Admission History & Physical Patient: George Styles, 1970, [id number] Physician: Timothy Joseph MD, PGY1, Pager #[phone], TM 1 service Date of face to [...] GUIDANCE 05/17/2022 Surgeon: Enzo Heart DO; Location: [facility] INTERVENTIONAL RADIOLOGY (VIR) LIVER TRANSPLANT, ORTHOTOPIC N/A 04/12/2020 Laterality: N/A; Surgeon: LU Palma; Location: [facility] SAME DAY SURGERY MAIN OR KIDNEY TRANSPLANT W/O TABLE MOUNTAIN NEPHRECTOMY N/A 04/12/2020 Laterality: N/A; Surgeon: LU Palma; Location: [facility] SAME DAY SURGERY MAIN OR OTHER SURGICAL [...] itraconazole Fax results to: Dr. White - [phone] Transplant Neph - [phone] Gabapentin 400 MG capsule Sig: Take 1 [...] erythema: Skin: No jaundice or rash Neuro: gem setter 3-7, 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 Strength grossly [...] 5mg CAD: non-obstructive CAD on [facility] 2018. - continue home aspirin 81mg daily Gout: continue home allopurinol 200mg daily BPH: continue home flomax 0.4mg daily Complexity. Obesity Body mass index is 32.8 kg/m . - Follow with PCP for dietary and lifestyle modifications. Any conditions listed below are present on admission unless otherwise specified. . DVT prophylaxis with lovenox Disposition: admitted to [facility] Code status is Full Staffed [...] Pierson, Luisa Steven, Renee Rivera, Daisha Max Mis Director: José Miguel Garnica All Txt: 04/13/2020 (Kidney), [...] results found for: CYCLOSPORIN , CYCLOSPORIN2 , [id number] , CYCLORAND No results found for: SIROLIMUS [...] request in chart. Kevin Sage MD Pager [phone] documented in this encounter [facility] 01-12-2024 History of Present illness [...] Prograf 0.2 MG Contact Info: Specialty ([place]anc[place]) [phone] [facility] [phone] [facility] [phone] [facility] [phone] Bedside Delivery ([facility]) [phone] [facility] OP RX OUTREACH ADVANCED: Call Information: Date and Time of Contact: 01/25/2024 10:23 AM Method of Contact: By Phone Contact Type: Prescriptions Contactor: [facility] OP Contactee: Patient Contact Outcome: Left message (prograf myco) Contact Info: Specialty ([place]) [phone] [facility] [phone] [facility] [phone] [facility] [phone] Bedside Delivery ([facility]) [phone] documented in this encounter [facility] 01-12-2024 History of Present illness [...] Prograf 0.2 MG Contact Info: Specialty ([place]) [phone] [facility] [phone] [facility] [phone] Raheem [phone] Bedside Delivery ([facility]) [phone] [facility] OP RX OUTREACH ADVANCED: Call Information: Date and Time of Contact: 01/25/2024 10:23 AM Method of Contact: By Phone Contact Type: Prescriptions Contactor: [facility] OP Contactee: Patient Contact Outcome: Left message (prograf myco) Contact Info: Specialty ([place]) [phone] [facility] [phone] [facility] [phone] Raheem [phone] Bedside Delivery ([facility]) [phone] [facility] OP RX OUTREACH ADVANCED: Call Information: Date and Time of Contact: 01/27/2024 10:19 AM Method of Contact: By Phone Contact Type: Prescriptions Contactor: [facility] OP Contactee: Patient Contact Outcome: Left message (myco prograf) Contact Info: Specialty ([place]) [phone] [facility] [phone] [facility] [phone] Raheem [phone] Bedside Delivery ([facility]) [phone] documented in this encounter [facility] 01-12-2024 History of Present illness [...] Prograf 0.2 MG Contact Info: Specialty ([place]) [phone] [facility] [phone] [facility] [phone] [facility] [phone] Bedside Delivery ([facility]) [phone] [facility] OP RX OUTREACH ADVANCED: Call Information: Date and Time of Contact: 01/25/2024 10:23 AM Method of Contact: By Phone Contact Type: Prescriptions Contactor: [facility] OP Contactee: Patient Contact Outcome: Left message (prograf myco) Contact Info: Specialty ([place]) [phone] [facility] [phone] [facility] [phone] [facility] [phone] Bedside Delivery ([facility]) [phone] [facility] OP RX OUTREACH ADVANCED: Call Information: Date and Time of Contact: 01/27/2024 10:19 AM Method of Contact: By Phone Contact Type: Prescriptions Contactor: [facility] OP Contactee: Patient Contact Outcome: Left message (myco prograf) Contact Info: Specialty ([place]) [phone] [facility] [phone] [facility] [phone] [facility] [phone] Bedside Delivery ([facility]) [phone] [facility] OP RX OUTREACH ADVANCED: Call Information: Date and Time of Contact: 02/01/2024 3:22 PM Contact Type: Prescriptions Contactor: [facility] OP Contactee: Patient Contact Outcome: Left message Shipping/Pickup: Medication Name: Mycophenolate 360mg and Prograf 0.2mg Pack Contact Info: Specialty ([place]) [phone] Jakob [phone] [facility] [phone] Raheem [phone] Bedside Delivery ([facility]) [phone] documented in this encounter [facility] 01-06-2024 History of Present illness [...] The neurologist wanted to send him to [facility] but it is out of network [...] see neurologist in [facility] Immunocompromised (CMS/HCC) Hypertension ([facility]) No change in meds Check echo Relevant Orders Echocardiogram 2D complete Bilateral lower extremity edema Relevant Orders Echocardiogram 2D complete Shortness of breath Check ECHO Relevant Orders Echocardiogram 2D complete Other Visit Diagnoses 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) Atherosclerosis 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) documented in this encounter [facility] 10-06-2023 History of Present [...] ; Prograf 0.2 MG Contact Info: Specialty ([place]) [phone] [facility] [phone] [facility] [phone] [facility] [phone] Bedside Delivery ([facility]) [phone] [facility] OP RX OUTREACH ADVANCED: Call Information: Date and Time of Contact: 10/23/2023 2:00 PM Method of Contact: By Phone Contact Type: Prescriptions Contactor: [facility] OP Contactee: Patient Contact Outcome: Left message and Call back later Shipping/Pickup: Medication Name: Mycophenolate 360mg and Prograf 0.2mg Contact Info: Specialty ([place]) [phone] [facility] [phone] [facility] [phone] [facility] [phone] Bedside Delivery ([facility]) [phone] documented in this encounter [facility] 09-11-2023 Miscellaneous Notes Pt discharged [...] the oxygen during the night. 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 This RN made [...] Patient seen ambulating in the velazquez with WELDING MACHINE OPERATOR ELECTRON BEAM. Patient was mildly short of breath on [...] & HR 114. Messaged Mainor Loomis, via Cirrascale secure chat, Temp 100.8. His tylenol order [...] short period of time. 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 Episode of [...] BAL studies. Will continue to follow. Crow Diza MD Pulmonary and Critical Care Medicine Message Mainor Loomis, via Cirrascale secure chat, Good evening, just an FYI, [...] short period of time. 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 This morning, [...] [address] Loera here also (jacker feeder) Dr. Diaz aware of pt's increased oxygen [...] regular sleep/rest pattern promoted Sent a secure Cirrascale chat to Rosi LUZ concerning patient's temp [...] Medicine-Pediatrics, PGY-2 Mr. Styles was admitted to [address] [place] [address]. On admission to [facility], from home a [...] when available. documented in this encounter [facility] 09-11-2023 History of Present illness Narrative Provided follow-up emotional and spiritual support. Patient shared about rosemary of discharge and looking forward to seeing family Tank House Operator provided: - Supportive presence - Active listening - Validation of feelings/emotions Patient encouraged to request a natural science manager as needed. Chaplains are available in-house 24 hours a day and 7 days a week. For urgent matters in [facility], please page [phone]. If the request is not urgent, please enter a consult. Consults are responded to within 24 hours. Senior Staff Tank House Operator Angie Singh Mdiv, [facility] Kirk [phone] [email or web address] 22/06 On-call Kirk: [phone] 22/06 Pager ,KIKE, and Brock Hernandez Pager [phone] 09/11/23 1430 Clinical Encounter Type Visited With Patient Visit Type Follow-up Pastoral Time Spent 15 min Referral Other (See Comment) (rounding) Spiritual Assessment Spiritual Observation Spirituality helpful Emotional Observation Coping well Hope Observation Specific hope focus Support Observation By Family Interventions Provided Active listening;Supportive presence Facilitated Verbalization of feelings Explored Expectations Flue Dust Laborer Education Flue Dust Laborer Service Available Yes Educated Patient Plan of Care Continue Visiting PRN Images from the original note were not included. [facility] Note: Non-Verbal Med Rec [facility] received the following discharge prescription(s): Total cost is $0. I have reviewed the Discharge Rx Reconciliation Report. The discharge prescription(s) will be delivered to the patient on 09/11/2023. Dimitrios Gurrola RPh,PharmD Specialty ([place]) [phone] [facility] [phone] [facility] Bedside Delivery [phone] [facility] [phone] [facility] Bedside Delivery [phone] [facility] [phone] [facility] Bedside Delivery [phone] [place] [phone] [place] [phone] Internal Medicine Daily Progress Note Patient: George Styles, 1970, [id number] Physician: Evan Kelly MD, PGY-1, TM1 service Subjective/Interval History: Patient continues to require oxygen overnight for desaturations. With insurance limitations, only accepting agency to provide home oxygen backed out. After calling them to discuss, Lynn stated she would be willing to have patient drive to their facility to pickup driver supplies, however they close at 5pm. 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 His [place] kidney disease was noted to be presumed [...] BID CAD: non-obstructive CAD on [facility] 2018. - continue home aspirin [...] 5.05 (H) 11/19/2018 Kevin Sage MD, MADISONN Institute Scientist of Clinical Medicine [facility] Images from the original note were not included. Final Discharge Planning and Transportation Final Discharge Planning Discharge Disposition: Home Services at Discharge: Outpatient clinical services (ie: lab draws, transfusions, injectables) (Home Oxygen by [employer]) Selected Continued Care - Admitted Since 08/28/2023 Durable Medical Equipment Coordination complete. Service Provider Selected Services Address Phone Fax Patient Preferred [employer] Durable Medical Equipment [facility] [id number] Internal Comment last updated by Lora Lawrence RN 09/10/2023 1130 Correct contact information: [employer] [address] [place] [address] mixer runner- you do not need to call at discharge, I already notified the company. Addendum 1523 [employer] notified this CM they are out of patient's insurance area and will not be able to service this patient at time of discharge. Provider notified. Addendum 1764 Dr Kelly called [facility] spoke to Lynn and she said they are willing to accept patient if the patient would drive to the [place] office and pickup driver the supplies. Patient is willing to do [...] Lora Colón RN, MSN, CCM, CMCN Clinical Sales Enablement Consultant- [facility] Transplant #[phone] Department of Pharmacy Transplant Note Patient: George [...] dose adjustment Name: Matt Kramer RPh,PharmD Phone: [phone] Date/Time: 09/10/2023 11:33 AM This CM sent referral via Aidin for O2 concentrator to 4 agencies Start date today Timer set for 1330 [facility] [employer] [facility] [employer] Addendum 1332 One accepting company reserved in Aidin [facility] [address] [place] [address] [place] [address] Lora Colón RN, MSN, CCM, CMCN Clinical Sales Enablement Consultant- [facility] Transplant #[phone] NUTRITION FOLLOW-UP Nutrition Plan of Care: 1. Continue current diet order. 2. No oral supplements warranted at this time. 3. Monitor for significant weight changes. Monitor GI, skin integrity. 4. Monitor and encourage po intakes with goal of average po being 75-100%. 5. fibre technologist to follow. ___ Met with patient [...] time. Will continue to monitor. RHIANNON BirminghamR Pager:[phone] Transplant Infectious Disease (Team 3) Progress Note [...] sign off. Please Epic message or page [phone] with questions. 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 His [place] kidney disease was noted to be presumed [...] BID CAD: non-obstructive CAD on [facility] 2018. - continue home aspirin [...] to follow. Please Epic message or page [phone] with questions. Evan White DO Transplant Infectious Diseases Internal Medicine Daily Progress Note Patient: George Styles, 1970, [id number] Physician: Laurel Serrano MD, PhD, PGY-3, TM1 [...] s/p combined Liver-kidney transplant on 04/13/20. His [place] kidney disease was noted to be presumed [...] BID CAD: non-obstructive CAD on [facility] 2019. - continue home aspirin [...] Daily Progress Note Patient: George Styles, 1970, [id number] Physician: Evan Kelly MD, PGY-1, TM1 service [...] s/p combined Liver-kidney transplant on 04/13/20. His [place] kidney disease was noted to be presumed [...] BID CAD: non-obstructive CAD on [facility] 2018. - continue home aspirin [...] 5.05 (H) 11/19/2018 Kevin Sage MD, SERA Institute Scientist of Clinical Medicine [facility] Transplant Infectious [...] to follow. Please Epic message or page [phone] with questions. Ann Marie Haskins MD PGY-4, [...] he continues to improve. Please message via Cirrascale secure chat or page with any questions or concerns. Evan White DO Institute Scientist Division of Infectious Disease Transplant Infectious Disease [...] to follow. Please Epic message or page [phone] with questions. Evan White DO Transplant Infectious Diseases Images from the original note were not included. Pulmonary/Critical Care Medicine Daily Progress Note Reason for Consultation: bronch for infectious workup Requesting Physician: Dr. Sage CURRENT HOSPITALIZATION: Admit Date: 08/28/2023 [facility] LOS: 9 days Impression 1. [...] and interpreted reviewed the radiographic data in IHIS/[facility]. [facility] Internal Medicine Daily Progress Note Patient: George Styles, 1970, [id number] Physician: Evan Kelly MD, PGY-1, TM1 service [...] s/p combined Liver-kidney transplant on 04/13/20. His [place] kidney disease was noted to be presumed [...] BID CAD: non-obstructive CAD on [facility] 2018. - continue home aspirin [...] 5.05 (H) 11/19/2018 Kevin Sage MD, MADISONN Institute Scientist of Clinical Medicine [facility] Images from the original note were not included. Pulmonary/Critical Care Medicine Daily Progress Note Reason for Consultation: bronch for infectious workup Requesting Physician: Dr. Sage CURRENT HOSPITALIZATION: Admit Date: 08/28/2023 [facility] LOS: 8 days Impression 1. [...] and interpreted reviewed the radiographic data in Cirrascale/LearnZillion/Pixability. Acute Occupational Therapy Evaluation Prior to Admission [...] Assessment: Transfer Assessment: Sit to Stand Transfer Stephenson Level: Sit->Stand: independent Skilled Intervention/Details: Sit->Stand: x1 from EOB, x1 from toilet Stand to Sit Transfer Stephenson Level: Stand->Sit: independent Skilled Intervention/Details: Stand->Sit: x1 to toilet, x1 to EOB Functional Mobility: Functional Mobility Stephenson Level: Functional Mobility/Gait: independent Ambulation Distance (Feet): [...] No Assistance Eatin - No Assistance CURRENT AM-[facility] Activity Raw Score: 21 CURRENT AM-PAC [...] Intact Mobility Assessment: Supine to Sit Mobility Stephenson Level: Supine->Sit: modified chickasaw Bed Features/Set-up: Supine->Sit: Head of bed elevated Sit to Supine Mobility Stephenson Level: Sit->Supine: not tested Balance: Sitting Balance [...] environment. Transfer Assessment: Sit to Stand Transfer Stephenson Level: Sit->Stand: independent Skilled Intervention/Details: Sit->Stand: From EOB x 2 without difficulty. Stand to Sit Transfer Stephenson Level: Stand->Sit: independent Assistive Device: Stand->Sit: armed chair Skilled Rationale: Verbal cues, Positioning Gait/Functional Mobility: Gait Assessment Stephenson Level: Gait: stand-by assist Assistive Device: Gait: rollator Ambulation Distance (Feet): 400 Gait Deviations Identified: decreased grace, decreased gait speed Gait Skilled Rationale: verbal, upright posture, increase step length, increase foot clearance Skilled Intervention/Details - Gait: Reasonable foot clearnce without loss of balance but endorsing dyspnea as 6-7/10. Stairs: Stairs Assessment Stephenson Level: Stair Negotiation: not tested Outcome Score(s): CURRENT [facility] Basic Mobility Inpatient Short Form Turning over in bed: 4 - No Assistance Sitting/standing from chair: 4 - No Assistance Moving from lying on back to sittin - No Assistance Moving to and from bed to chair: 3 - A Little Assistance Walk in hospital room: 3 - A Little Assistance Climbing 3-5 steps with a railin - A Little Assistance CURRENT [facility] Mobility Raw Score: 21 CURRENT [facility] Mobility Functional Limitation/Modifier: 28.97% Currently Impaired [...] Daily Progress Note Patient: George Styles, 1970, [id number] Physician: Evan Kelly MD, PGY-1, TM1 service [...] s/p combined Liver-kidney transplant on 04/13/20. His [place] kidney disease was noted to be presumed [...] BID CAD: non-obstructive CAD on [facility] 2018. - continue home aspirin [...] 5.05 (H) 11/19/2018 Kevin Sage MD, SERA Institute Scientist of Clinical Medicine [facility] Transplant Infectious [...] to follow. Please Epic message or page [phone] with questions. Evan White DO Transplant Infectious Diseases Images from the original note were not included. Internal Medicine Daily Progress Note Patient: George Styles, 1970, [id number] Physician: Evan Kelly MD, PGY-1, TM1 service [...] s/p combined Liver-kidney transplant on 04/13/20. His [place] kidney disease was noted to be presumed [...] BID CAD: non-obstructive CAD on [facility] 2018. - continue home aspirin [...] given interaction with P 450 system Kevin Saeg MD, SERA Institute Scientist of Clinical Medicine [facility] ERT Note: [...] Internal Medicine and Pediatrics PGY-3 [facility] Brief plan of care update: [...] Internal Medicine and Pediatrics PGY-3 [facility] Transplant Infectious Disease (Team 3) [...] to follow. Please Epic message or page [phone] with questions. Evan White DO Transplant Infectious Diseases Internal Medicine Daily Progress Note Patient: George Styles, 1970, [id number] Physician: Evan Kelly MD, PGY-1, TM1 service [...] s/p combined Liver-kidney transplant on 04/13/20. His [place] kidney disease was noted to be presumed [...] function CAD: non-obstructive CAD on [facility] 2018. - continue home aspirin [...] 5.05 (H) 11/19/2018 Kevin Sage MD, MADISONN Institute Scientist of Clinical Medicine [facility] Internal Medicine Daily Progress Note Patient: George Styles, 1970, [id number] Physician: Evan Kelly MD, PGY-1, TM1 service [...] s/p combined Liver-kidney transplant on 04/13/20. His [place] kidney disease was noted to be presumed [...] function CAD: non-obstructive CAD on [facility] 2018. - continue home aspirin [...] 5.05 (H) 11/19/2018 Kevin Sage MD, FASN Institute Scientist of Clinical Medicine [facility] Progression of [...] follow up Lora Colón RN, MSN, CCM, [facility] Clinical Sales Enablement Consultant- [facility] Transplant #[phone] Made introductory visit with patient. Provided emotional and spiritual support. Patient shared about: - Source of Rosemary: Camping/Fishing/Family - Spirituality/Church Affiliation: raised Yarsanism - Family Support/history - Experience with illness/hospital course - Hopes for healing/future Tank House Operator provided: - Supportive presence - Active listening - Validation of feelings/emotions - Pledged prayer Patient encouraged to request a natural science manager as needed. Chaplains are available in-house 24 hours a day and 7 days a week. For urgent matters in [facility], please page [phone]. If the request is not urgent, please enter a consult. Consults are responded to within 24 hours. Senior Staff Tank House Operator Angie Singh Mdiv, [facility] [place] [phone] [email or web address] 22/06 On-call Kirk: [phone] 22/06 Pager KIKE SNIDER, and Brock Hernandez Pager [phone] 09/02/23 2482 Clinical Encounter Type Visited With Patient Visit Type Introduction Pastoral Time Spent 15 min Referral Other (See Comment) (rounding) Spiritual Assessment Spiritual Observation Spirituality helpful Emotional Observation Coping well Hope Observation Specific hope focus Support Observation By Family Interventions Provided Active listening;Supportive presence Facilitated Verbalization of feelings Explored Expectations Flue Dust Laborer Education Flue Dust Laborer Service Available Yes Educated Patient Outcomes Patient Outcomes Reduced distress Plan of Care Continue Visiting PRN NUTRITION RISK SCREENING NOTE Nutrition Plan of Care: 1. Continue current diet order. 2. No oral supplements warranted at this time. 3. Monitor for significant weight changes. Monitor GI and skin integrity. 4. Monitor and encourage po intakes with goal of average po being 100%. 5. fibre technologist to follow. George Styles is a 53 y.o. 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 His [place] kidney disease was noted to be presumed hepatorenal syndrome. His post-transplant course was noteworthy for nephrostomy tube (05/17/2022-09/10/2022) due to concern for ureteral stone. He presents as a direct admission for fever, cough, for infectious workup. Pt unavailable and information obtained via chart review Size Mixer Screening Pt's appetite is good. Pt with [...] with meds Food Allergies reviewed:Shellfish Cultural or Church Restrictions/Preferences: None GI: Last Bowel Movement: 09/01/23 [...] time. Will continue to monitor. RHIANNON BirminghamR Pager:[phone] Internal Medicine Daily Progress Note Patient: George Styles, 1970, [id number] Physician: Evan Kelly MD, PGY-1, TM1 service [...] s/p combined Liver-kidney transplant on 04/13/20. His [place] kidney disease was noted to be presumed [...] function CAD: non-obstructive CAD on [facility] 2018. - continue home aspirin [...] as outlined above. Kevin Sage MD Pager [phone] Summary: Pharmacy Med Rec Department of Pharmacy [...] Supply: 90 Refills: 0 Provider: Zuly Bruno ASSURANCE ASSISTANT [facility]: [facility] Other Comments: Patient reported his Last Home Dose of mycophenolate & tacrolimus was on 08/28/23 at 0900. Patient reported he was taking Bactrim and benzonatate for fevers and a cough he was having. Please feel free to contact me with any further questions. Name: Heidy Chatman Phone #: [phone] Date/Time: 09/01/2023 2:01 PM Time Spent: 15 minutes Associated attestation - Matt Kramer RPh,PharmD - 09/01/2023 2:28 PM EDT Department of Pharmacy Admission Medication Reconciliation Note Patient: George Styles Room/Bed: 1062/A I have reviewed the home medication list with the Service Engine Repairer. All changes to the home medication list have been updated in IHIS. Updated SUPPORT ENGINEER Med List: Prior to Admission Medications [...] questions. Name: Matt Kramer RPh,Frankie Phone #: [phone] Date/Time: 09/01/2023 2:28 PM Transplant Infectious Disease [...] crypto antigen, EBV PCR -follow pending histo, [id number] labs These recommendations were discussed with the primary team. Transplant ID (Team 3) will continue to follow. Please Epic message or page [phone] with questions. Evan White DO Transplant Infectious Diseases Internal Medicine Daily Progress Note Patient: George Styles, 1970, [id number] Physician: Evan Kelly MD, PGY-1, TM1 service [...] s/p combined Liver-kidney transplant on 04/13/20. His [place] kidney disease was noted to be presumed [...] function CAD: non-obstructive CAD on [facility] 2018. - continue home aspirin [...] 5.05 (H) 11/19/2018 Kevin Sage MD, SERA Institute Scientist of Clinical Medicine [facility] Discharge Planning Patient [...] Yes Name and Contact information: Gian Styles ([phone]) Reviewed and Updated in Demographics? : Yes Outpatient Providers Does patient have a primary care physician? : Yes When was the patient's last PCP visit?: > 30 days Does the patient follow any specialists?: No Reviewed and updated Care Team?: Yes Patient Care Team: Zuly Bruno CNP as PCP - General Environment/Caregivers Is the patient from a facility or jail?: No Patient lives with: Alone Living Environment: [...] patient on Anticoagulation? : No [id number] [place] [address] - [address] [address] Artificial Limb Fitter Does the patient or b2b sales representative express financial concerns? : No Employed?: Disabled Coping/Stress Concerns about patient s coping and stress?: No Concerns about patient s caregiver s coping and stress?: No Values and Beliefs Cultural or catholic practices that may impact discharge planning and/or [...] Plan 1. Identified self and role as Sales Enablement Consultant. 2. Confirmed and updated demographics and treatment team. 3. Sales Enablement Consultant will continue to follow with medical team/pt for any other additional discharge needs. Kasandra DON RN [facility] [phone] *Please note I am float and work Thursday and Thursday every other week. Please call [phone] for assist in my absence. Internal Medicine Daily Progress Note Patient: George Styles, 1970, [id number] Physician: Evan Kelly MD, PGY-1, TM1 service [...] s/p combined Liver-kidney transplant on 04/13/20. His [place] kidney disease was noted to be presumed [...] function CAD: non-obstructive CAD on [facility] 2018. - continue home aspirin [...] 5.05 (H) 11/19/2018 Kevin Sage MD, MADISONN Institute Scientist of Clinical Medicine [facility] Internal Medicine Daily Progress Note Patient: George Styles, 1970, [id number] Physician: Laurel Serrano MD, PhD, PGY-3, TM1 [...] s/p combined Liver-kidney transplant on 04/13/20. His [place] kidney disease was noted to be presumed [...] BID CAD: non-obstructive CAD on [facility] 2018. - continue home aspirin 81mg daily, atorvastatin 20mg daily Gout: continue home allopurinol 200mg daily BPH: continue home flomax 0.4mg daily DVT PPX: SQH Code Status: Full Code Disposition: Pending clinical course. Anticipate eventual discharge home. Discussed with team and attending, Kevin Sage MD, on rounds. Signed, Laurel Serrano MD, PhD documented in this encounter [facility] 09-10-2023 Hospital Discharge instructions Laurel [...] a sleep doctor. You will need to pickup driver the oxygen concentrator when you leave the [...] on healthy foods. documented in this encounter [facility] 09-01-2023 Consult note Associated Order (s): IP CONSULT TO PULMONOLOGY Pulmonary Medicine Inpatient Consultation Reason for Consultation: bronch for infectious workup Requesting Physician: Dr. Sage Pulmonary Attending Physician: Dr. Diaz CURRENT HOSPITALIZATION: Admit Date: 08/28/2023 [facility] LOS: 4 days Impression/Recommendations: George [...] short period of time. 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 Other histories as documented in the [...] ill contacts. He traveled to [place] to [facility] in May. REVIEW OF SYSTEMS [...] GUIDANCE 05/17/2022 Surgeon: Enzo Heart DO; Location: [facility] INTERVENTIONAL RADIOLOGY (VIR) LIVER TRANSPLANT, ORTHOTOPIC N/A 04/12/2020 Laterality: N/A; Surgeon: LU Palma; Location: [facility] SAME DAY SURGERY MAIN OR KIDNEY TRANSPLANT W/O TABLE MOUNTAIN NEPHRECTOMY N/A 04/12/2020 Laterality: N/A; Surgeon: LU Palma; Location: [facility] SAME DAY SURGERY MAIN OR OTHER SURGICAL [...] Alamo MD I can be reached via Cirrascale secure message (preferred) or Pager #[phone] documented in this encounter [facility] 08-28-2023 History and physical note Images from the original note were not included. Internal Medicine Admission History & Physical Patient: George Styles, 1970, [id number] Physician: Aric Turner MD, PGY1, Pager #[phone], SQ service Date of face to face patient [...] So he went to see the transplant svp of digital. He was found elevated Cr and asked [...] Appetite is ok now. Urine is about 7548-1630 ml every day. Stool every day, no [...] 04/12/2020 Laterality: N/A; Surgeon: LU Palma; Location: [facility] SAME DAY SURGERY MAIN OR KIDNEY TRANSPLANT W/O TABLE MOUNTAIN NEPHRECTOMY N/A 04/12/2020 Laterality: N/A; Surgeon: LU Palma; Location: [facility] SAME DAY SURGERY MAIN OR OTHER SURGICAL [...] s/p combined Liver-kidney transplant on 04/13/20. His [place] kidney disease was noted to be presumed [...] Urinary histoplasmosis - PJP, candid PCR - Gunite Nozzle Operator transplant ID Acute Kidney Injury with Kidney [...] BID CAD: non-obstructive CAD on [facility] 2018. - continue aspirin 81mg [...] Pierson, Luisa Steven, Renee Rivera, Daisha Max Mis Director: José Miguel Garnica All Txt: 04/13/2020 (Kidney), [...] results found for: CYCLOSPORIN , CYCLOSPORIN2 , [id number] , CYCLORAND No results found for: SIROLIMUS [...] Rest as above. Kevin Sage MD Pager [phone] documented in this encounter [facility] 08-28-2023 History of Present illness Narrative Images from the original note were not included. 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 Mis Director: Anayeli Burt Date of Liver Transplant: 04/13/2020 (Kidney), 04/13/2020 (Liver) 3 years 4 months post Liver/Kidney Transplant Primary Disease: Hypertensive Nephrosclerosis Transplant Shadowgraph Operator: Erma Roe/ Daisha Max Primary Care [...] and faMOTIdine === None Specified Preferred Lab: [facility] Change in lab frequency / new [...] every 12 hours. ADDITIONAL INFORMATION: None Specified, [id number] [place] [address] - [address] [address] [facility] [address], [address] [facility] [address] [id number] [place] [address] [address] [facility] [address] [facility] [address] [facility] [address], [place] [address] [facility] [address] ROS and SCREEN: Chest Pain: negative Cough: [...] PHYSICIAN: I saw George Styles at the [facility] on 08/28/2023. Patient is a 53 y.o. 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 His [place] kidney disease was noted to be presumed [...] GUIDANCE 05/17/2022 Surgeon: Enzo Heart DO; Location: [facility] INTERVENTIONAL RADIOLOGY (VIR) LIVER TRANSPLANT, ORTHOTOPIC N/A 04/12/2020 Laterality: N/A; Surgeon: LU Palma; Location: [facility] SAME DAY SURGERY MAIN OR KIDNEY TRANSPLANT W/O TABLE MOUNTAIN NEPHRECTOMY N/A 04/12/2020 Laterality: N/A; Surgeon: LU Palma; Location: [facility] SAME DAY SURGERY MAIN OR OTHER SURGICAL [...] you have any questions. Steve Latham MD acquisition advisor Division of Nephrology [facility] documented in this encounter [facility] 08-28-2023 Instructions Mainor Busby RN - 08/28/2023 2:15 PM EDT - Admission for fevers, cough, and night sweats documented in this encounter [facility] 08-19-2023 History of Present illness Narrative [facility] RX OUTREACH ADVANCED: Call Information: Date and Time of Contact: 08/19/2023 2:52 PM Method of Contact: By Phone Contact Type: Prescriptions Contactor: [facility] Contactee: Patient Shipping/Pickup: Medicare B Refill?: No Medication Name: Tacro 0.5mg Delivery Method: Air Delivery Location: Home Signature Required: No Mailing/Pickup Date: 08/25/2023 Shipping Address: [address] [place] [address] [address] Contact Info: Specialty ([place]) [phone] Jakob [phone] [facility] [phone] Raheem [phone] Bedside Delivery ([facility]) [phone] documented in this encounter [facility] 06-12-2023 History of Present illness Narrative Images from the original note were not included. George Styles is a 53 y.o. 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 No longer follows with a local svp of digital. History of Present Illness: Since George was [...] and lab results. Rebeca Gutierrez MSN, RN, INTERNET MERCHANT-BC, CCTN Certified Nurse Practitioner [facility] [address] [facility] [address] documented in this encounter [facility] 06-12-2023 Instructions JEANNA Hess - 06/12/2023 3:00 PM EDT No change in immunosuppression. [facility] History of Present illness Narrative [facility] OUTREACH ADVANCED: Call Information: Method of Contact: By Phone Contact Type: Prescriptions Contactor: [facility] Contactee: Patient Contact Outcome: Left message Shipping/Pickup: Medication Name: Mycophenolate sod 180 mg Contact Info: Specialty ([place]) [phone] [facility] [phone] [facility] [phone] Raheem [phone] Bedside Delivery ([facility]) [phone] [facility] RX OUTREACH ADVANCED: Call Information: Date and Time of Contact: 06/12/2023 9:43 AM Method of Contact: By Phone Contact Type: Prescriptions Contactor: [facility] Contactee: Patient Contact Outcome: Left message and Follow-up Shipping/Pickup: Medicare B Refill?: No Medication Name: Myco 180 Contact Info: Specialty ([place]) [phone] [facility] [phone] [facility] [phone] Raheem [phone] Bedside Delivery ([facility]) [phone] [facility] RX OUTREACH ADVANCED: Call Information: Date and Time of Contact: 06/12/2023 10:08 AM Method of Contact: By Phone Contact Type: Prescriptions Contactor: [facility] Contactee: Patient Shipping/Pickup: Medicare B Refill?: No Medication Name: Mycophenolate 180mg DR Delivery Method: Air Delivery Location: Home Signature Required: No Mailing/Pickup Date: 06/17/2023 Shipping Address: [address] [place] [address] Contact Info: Specialty ([place]) [phone] [facility] [phone] [facility] [phone] Raheem [phone] Bedside Delivery ([facility]) [phone] documented in this encounter [facility] 03-12-2023 History of Present illness Narrative [facility] RX OUTREACH ADVANCED: Call Information: Date and Time of Contact: 03/12/2023 10:34 AM Method of Contact: By Phone Contact Type: Prescriptions Contactor: [facility] Contactee: Patient Shipping/Pickup: Medicare B Refill?: No Medication Name: Mycophenoloate sod 360 mg prednisone 5mg Delivery Method: Air Delivery Location: Home Signature Required: No Mailing/Pickup Date: 03/16/2023 Shipping Address: [address] [place] [address] Contact Info: Specialty ([place]) [phone] [facility] [phone] [facility] [phone] Raheem [phone] Bedside Delivery ([facility]) [phone] [facility] RX OUTREACH ADVANCED: Call Information: [...] No Mailing/Pickup Date: 03/19/2023 Shipping Address: [address] Contact Info: Specialty ([place]) [phone] [facility] [phone] [facility] [phone] [facility] [phone] Bedside Delivery ([facility]) [phone] documented in this encounter [facility] 03-10-2023 History of Present illness Narrative [facility] OUTREACH ADVANCED: Call Information: Date and Time of Contact: 03/10/2023 12:00 PM Method of Contact: By Phone Contact Type: Prescriptions Contactor: [facility] Contactee: Patient Contact Outcome: Left message and Call back later Shipping/Pickup: Medication Name: Mycophenolate ; Tacrolimus Contact Info: Specialty ([place]) [phone] [facility] [phone] [facility] [phone] [facility] [phone] Bedside Delivery ([facility]) [phone] documented in this encounter [facility] 03-10-2023 History of Present illness Narrative [facility] RX OUTREACH ADVANCED: Call Information: Date and Time of Contact: 03/10/2023 12:00 PM Method of Contact: By Phone Contact Type: Prescriptions Contactor: [facility] Contactee: Patient Contact Outcome: Left message and Call back later Shipping/Pickup: Medication Name: Mycophenolate ; Tacrolimus Contact Info: Specialty ([place]) [phone] [facility] [phone] [facility] [phone] [facility] [phone] Bedside Delivery ([facility]) [phone] [facility] RX OUTREACH ADVANCED: Call Information: Date and Time of Contact: 03/12/2023 10:32 AM Method of Contact: By Phone Contact Type: Prescriptions Contactor: [facility] Contactee: Patient Contact Outcome: Left message Shipping/Pickup: Medication Name: Mycophenolate sodium (MYFORTIC) 180 MG Tab tacrolimus 0.5 mg Contact Info: Specialty ([place]) [phone] Jakob [phone] [facility] [phone] Raheem [phone] Bedside Delivery ([facility]) [phone] documented in this encounter [facility] 01-16-2023 History of Present illness Narrative -Referring Provider for today's consult: Daisha Max DO -Primary Care Provider: Zuly Bruno History of Present Illness George Styles is a 52 y.o. male who presents to the [facility] Trans[facility] Hepatology Clinic today for follow-up [...] GUIDANCE 05/17/2022 Surgeon: Enzo Heart DO; Location: [facility] INTERVENTIONAL RADIOLOGY (VIR) LIVER TRANSPLANT, ORTHOTOPIC N/A 04/12/2020 Laterality: N/A; Surgeon: LU Palma; Location: [facility] SAME DAY SURGERY MAIN OR KIDNEY TRANSPLANT W/O TABLE MOUNTAIN NEPHRECTOMY N/A 04/12/2020 Laterality: N/A; Surgeon: LU Palma; Location: [facility] SAME DAY SURGERY MAIN OR OTHER SURGICAL [...] 0.3 12/29/2022 Explant Pathology Pathologic Diagnosis A. [place] liver, orthotopic liver transplant resection (1458 gram): [...] A/P with IV contrast (06/27/2022): 1. Both [place] kidneys are atrophic with improvement in right-sided [...] frequent nighttime urination, etc). Daisha Max DO Institute Scientist Gastroenterology, Hepatology and Nutrition [facility] Pager: [phone] Images from the original note were not included. 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 Mis Director: Anayeli Burt Date of Liver Transplant: 04/13/2020 (Kidney), 04/13/2020 (Liver) 2 years, 8 months post Liver/Kidney Transplant Primary Disease: Hypertensive Nephrosclerosis Transplant Shadowgraph Operator: Steve Latham Primary Care physician: Zuly [...] levels: No results found for: CYCLOSPORIN, CYCLOSPORIN2, [id number], CYCLORAND No components found for: CYCLOSPORINE, 2HR [...] hours. ADDITIONAL INFORMATION: None Specified [id number] [place] [address] - [address] [facility] [address] [facility] [address] [facility] [address] [facility] [address] [place] [address] [id number] - [place] [id number] - [address] [facility] [address] [place] [id number] [facility] [address], [facility] [address] [facility] [address] ROS and SCREEN: Chest Pain: negative Cough: [...] ADDRESS WITH PHYSICIAN: documented in this encounter [facility] 01-16-2023 Instructions José Miguel Garnica RN - 01/16/2023 9:40 AM EST - Labs Every 2 months - Discuss night time urination with your PCP - Schedule Colonoscopy through PCP - Follow up in 1 year documented in this encounter [facility] 09-10-2022 History of Present illness [...] and no hydronephrosis. Some reflux up the [place] right ureter but good drainage of both transplant and [place] ureter to the bladder. Nephrostomy tube was [...] transplant, orthotopic (N/A, 04/12/2020); kidney transplant w/o [place] nephrectomy (N/A, 04/12/2020); and placement nephrostomy catheter [...] Negative for , diarrhea, constipation Genitourinary: See SOLOMON Neurological: Negative for headaches. Lymph/Heme: Negative for [...] x 4, Normal strength. No edema. Skin: [place], warm, and dry. There are no rashes [...] and no hydronephrosis. Some reflux up the [place] right ureter but good drainage of both transplant and [place] ureter to the bladder. Nephrostomy tube was [...] MD 09/10/22 documented in this encounter [facility] 07-07-2022 History of Present illness [...] off the table and escorted to office manager receptionist where they made a follow up. 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 Nephrostomy tube placed [...] to have transplant ureter with anastomosis to [place] right ureter. Nephrostogram without filling defects and no hydronephrosis. Some reflux up the [place] right ureter but good drainage of both transplant and [place] ureter to the bladder. Nephrostomy tube was removed without issue. Patient does have some sensation of incomplete bladder emptying and occasional sensation in his right flank. PVR today was 33cc. Will re-evaluate urinary symptoms at next appointment. --continue Flomax --RTC in one month flow flow/PVR/IPSS Patient to call with any additional questions or concerns. Ryan Yepez MD 07/07/22 documented in this encounter [facility] 06-27-2022 History of Present illness [...] transplant, orthotopic (N/A, 04/12/2020); kidney transplant w/o [place] nephrectomy (N/A, 04/12/2020); and placement nephrostomy catheter [...] Negative for , diarrhea, constipation Genitourinary: See SOLOMON Neurological: Negative for headaches. Lymph/Heme: Negative for [...] x 4, Normal strength. No edema. Skin: [place], warm, and dry. 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 Nephrostomy tube placed [...] bag if needed. documented in this encounter [facility] 06-27-2022 History and physical note Patient was evaluated in clinic as a nurse visit. Please refer to Rena Brewster's note. [facility] Work Phone: 06-27-2022 History and physical note Patient was evaluated in clinic as a nurse visit. Please refer to Rena Brewster's note. documented in this encounter [facility] 06-27-2022 History of Present illness Narrative TEACHING REGARDING TX NEPH COMPLETED-NEPH TUBE SITE DRY AND INTACT-CLEAR YELLOW URINE IN THE BAG-INSTRUCTED ABOUT FLUSHING, BAG CHANGING ETC. NUMEROUS QUESTIONS ASKED AND ANSWERED-VERBALIZED UNDERSTANDING documented in this encounter [facility] 06-18-2022 Note EXAMINATION: CT ABD/ [...] mass or enlargement. KIDNEYS: Marked atrophy of [place] kidneys. Transplant right pelvic kidney with percutaneous [...] authenticated by: MÓNICA JIMENEZ Date: 2022-06-18 13:53 [facility] 06-12-2022 Instructions Anayeli Christianson RN - 06/12/2022 3:21 PM EDT Do not take apart/disrupt nephrostomy tube system. Call Interventional Radiology and/or on-call transplant nurse [phone] for instruction if need to flush (clot or decreased flow). Take cipro 500mg, one tablet, twice per day for 14 days documented in this encounter [facility] 06-12-2022 History of Present illness Narrative Images from the original note were not included. 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 Mis Director: Anayeli Burt Date of Liver Transplant: 04/13/2020 (Kidney), 04/13/2020 (Liver) 2 year, 1 months post Liver/Kidney Transplant Primary Disease: Hypertensive Nephrosclerosis Transplant Shadowgraph Operator: Steve Latham Primary Care physician: Zuly [...] or medical transport for appointment: no Did commercial front load operator confirm current address and insurance information [...] PREFERRED LAB AND PHARMACY: None Specified [facility] [place] [address] - [address] [address] [facility] [address], [address] [facility] [address] [id number] [place] [address] [address] [facility] [address] [facility] [address] [facility] [address], [place] [address] [facility] [address] ROS and SCREEN: Chest Pain: negative Cough: negative SOB: negative Abd Pain: negative Nausea: positive Vomiting: negative Diarrhea: negative Constipation: negative Dysuria: positive Edema: negative Tremors: negative Headaches: negative Wound issues: negative Pt has neph tube w clear yellow urine. States he had a small clot that he dislodged QUESTIONS OR CONCERNS TO ADDRESS WITH PHYSICIAN: I saw George Styles at the [facility] on 06/12/2022. Patient is a 52 y.o. 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 His [place] kidney disease was noted to be presumed [...] GUIDANCE 05/17/2022 Surgeon: Enzo Heart DO; Location: [facility] INTERVENTIONAL RADIOLOGY (VIR) LIVER TRANSPLANT, ORTHOTOPIC N/A 04/12/2020 Laterality: N/A; Surgeon: LU Palma; Location: [facility] SAME DAY SURGERY MAIN OR KIDNEY TRANSPLANT W/O TABLE MOUNTAIN NEPHRECTOMY N/A 04/12/2020 Laterality: N/A; Surgeon: LU Palma; Location: [facility] SAME DAY SURGERY MAIN OR OTHER SURGICAL [...] you have any questions. Steve Latham MD acquisition advisor Division of Nephrology [facility] documented in this encounter [facility] 06-04-2022 Instructions TATI GROVE - 06/04/2022 11:04 AM EDT Thank you for joining us for your neph tube follow up. We recommend routine exchange every 8-10 weeks. Please reach out at [phone] when it is time to set your next routine exchange. Thank you IR clinic documented in this encounter [facility] 06-04-2022 History of Present illness [...] exchange. Verbalized understanding. documented in this encounter [facility] 05-20-2022 Note Formatting of this [...] time of his discharge. Leon Cook RN [facility] 05-20-2022 Miscellaneous Notes Patient discharged. [...] provide teaching before his discharge Leon RN #[id number] Leon Cook RN Afternoon assessment completed at [...] Interdisciplinary Rounds/Family Conf Outcome: Ongoing Discussed with [facility] re: possible urine culture performed at [...] with questions. Evan Byrd MD Urology, PGY-2 #[id number] I certify that this patient requires inpatient [...] Kallie Lorenzana RN documented in this encounter [facility] 05-20-2022 Note Formatting of this [...] discharge/transition of care. Outcome: Adequate for Discharge [facility] 05-20-2022 Note Formatting of this n ote might be different from the original. Anne Dillard MD R10 [address] George Please let's have a clear order on how the nephrostomy site dressing need to be changed when the patient goes home so we provide teaching before his discharge Leon RN #[id number] Leon Cook RN [facility] 05-20-2022 History of Present illness Narrative Images from the original note were not included. [facility] Note: [facility] received the following discharge prescription(s): Medication reconciliation was completed with comparison to discharge reconciliation report. The prescription(s) will be delivered to the patient's bedside on 05/20/22. Total cost is $0. Yanira Her RPh,PharmD Specialty ([place]) [phone] [facility] [phone] [facility] [phone] Raheem [phone] [place] [phone] [facility] [phone] Attending I saw George Styles at the [facility] on 05/19/2022. I saw and independently [...] Daily Progress Note Patient: George Styles, 1970, [id number] Physician: Liam Julian MD, PGY-3, Pager #[phone], [email or web address] Subjective/Interval History: No acute events overnight. Passed [...] Saldana MD Division of Hospital Medicine Pager [phone] Attending I saw George Styles at the [facility] on 05/18/2022. I saw and independently [...] mg 5 mg Oral Q4H PRN Nishant aGmez MD 5 mg at 05/17/22 182 polyethylene [...] Daily Progress Note Patient: George Styles, 1970, [id number] Physician: Nishant Gamez MD, PGY2, Pager #[phone], [email or web address] Subjective/Interval History: Nephrostomy tube placed yesterday with a lot of urine output and significant improvement in creatinine. 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 Daya (Nunu) Jeff Saldana MD Division of Hospital Medicine Pager [phone] Internal Medicine Daily Progress Note Patient: George Styles, 1970, [id number] Physician: Nishant Gamez MD, PGY2, Pager #[phone], [email or web address] Subjective/Interval History: Worsening creatinine this morning with [...] Saldana MD Division of Hospital Medicine Pager [phone] Attending I saw George Styles at the [facility] on 05/17/2022. I saw and independently [...] of chart and discussion with treatment team, Sales Enablement Consultant has not identified needs at this [...] follow. Introduced self and role of the natural science manager to patient. Provided emotional and spiritual support and the patient responded by sharing their experience and discussed the following: - Spirituality/Church Affiliation: As a kid attended [employer] episcopalian but not a strong identity now - Family support - pt's brothers live close by Tank House Operator provided: - Supportive presence - Active listening - Validation of feelings/emotions Patient encouraged to request a natural science manager as needed. Chaplains are available in-house 24 hours a day and 7 days a week. For urgent matters in [facility], please page [phone]. If the request is not urgent, please enter a consult. Consults are responded to within 24 hours. Angie Singh Mdiv, [facility] [place] [address] Tank House Operator [facility] Tank House Operator Kirk [phone] [email or web address] 22/06 [facility] Pager [phone] 22/06 Pager ,[facility], and Brock 1500 22/06 [place] Pager [phone] 05/16/22 1125 Clinical Encounter Type Visited With Patient Visit Type Introduction Pastoral Time Spent 15 min Referral Other (See Comment) (Rounding) Spiritual Assessment Spiritual Observation Spirituality helpful;Identifies as (see comment) (Anabaptist) Emotional Observation Coping well Hope Observation Hopeful and accepting Support Observation By Family Interventions Provided Active listening;Supportive presence Facilitated Verbalization of feelings;Sharing of life story;Identifying support system Explored Expectations Flue Dust Laborer Education Flue Dust Laborer Service Available Yes Educated Patient Outcomes Patient Outcomes Articulated purpose/meaning Plan of Care Continue Visiting PRN Internal Medicine Daily Progress Note Patient: George Styles, 1970, [id number] Physician: Nishant Gamez MD, PGY2, Pager #[phone], [email or web address] Subjective/Interval History: Overall feeling okay this morning. 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 [...] Supervision Transfer Assessment: Sit to Stand Transfer Stephenson Level: Sit->Stand: independent Skilled Intervention/Details: Sit->Stand: x1 from EOB Stand to Sit Transfer Stephenson Level: Stand->Sit: supervision Assistive Device: Stand->Sit: armed chair Skilled Rationale: Controlled descent for sitting, Verbal cues Gait/Functional Mobility: Gait Assessment Stephenson Level: Gait: supervision Assistive Device: Gait: gait belt Gait Distance (feet): 200 Gait Deviations Identified: decreased grace, decreased step length, decreased stride length Gait Skilled Rationale: verbal, upright posture Skilled Intervention/Details - Gait: Pt with steady gait without LOB or complaints of SOB. Stairs: Stairs Assessment Stephenson Level: Stair Negotiation: stand-by assist Assistive Device: Stair Negotiation: gait belt, left rail (ascending) Number of stairs: 9 Stairs Skilled Rationale: reciprocal pattern Outcome Score(s): CURRENT [facility] Basic Mobility Inpatient Short Form Turning over in bed: 4 - No Assistance Sitting/standing from chair: 4 - No Assistance Moving from lying on back to sittin - No Assistance Moving to and from bed to chair: 4 - No Assistance Walk in hospital room: 3 - A Little Assistance Climbing 3-5 steps with a railin - A Little Assistance CURRENT [facility] Mobility Raw Score: 22 CURRENT [facility] Mobility Functional Limitation/Modifier: 20.91% Currently Impaired [...] reported no concerns with discharging home with [place] support. 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 IADL History IADLs: independent Primary Language: Armenian Home Management Skills: independent Meal Prep Responsibility: [...] Assessment: Transfer Assessment: Sit to Stand Transfer Stephenson Level: Sit->Stand: independent Skilled Rationale: Cues for increased safety Skilled Intervention/Details: Sit->Stand: x1 EOB Stand to Sit Transfer Stephenson Level: Stand->Sit: supervision Assistive Device: Stand->Sit: gait belt, armed chair Skilled Rationale: Verbal cues, Controlled descent for sitting, Cues for increased safety Skilled Intervention/Details: Stand->Sit: cues for hand placement and controlled descent Functional Mobility: Functional Mobility Stephenson Level: Functional Mobility/Gait: stand-by assist Assistive Device: Functional Mobility/Gait: gait belt Functional Mobility Distance: Distance needed for limited community mobility Functional Mobility Deficits: Activity tolerance, Balance, Decreased step length, Generalized weakness Functional Mobility Skilled Rationale: Verbal cues, Facilitate postural control Skilled Intervention/Details - Functional Mobility/Gait: cues for upright posture Outcome Score(s): CURRENT [facility] Daily Activity Inpatient Short Form Putting on/Taking Off Lower Body Clothin - A Little Assistance Bathin - A Little Assistance Toiletin - A Little Assistance Putting on/Taking Off Upper Body Clothin - No Assistance Groomin - No Assistance Eatin - No Assistance CURRENT [facility] Activity Raw Score: 21 CURRENT [facility] Activity Functional Limitation/Modifier: 32.79% Currently Impaired [...] DAY SURGERY MAIN OR KIDNEY TRANSPLANT W/O TABLE MOUNTAIN NEPHRECTOMY N/A 04/12/2020 Laterality: N/A; Surgeon: LU [...] by: Mel Norman OT, OTR/L License #: [id number] pager # [phone] 05/20/2022 Upon discontinuation of Acute Care Occupational Therapy Services or patient discharge from the hospital this note represents the current Occupational Therapy Discharge Summary. documented in this encounter [facility] 05-20-2022 Hospital course Narrative Discharge [...] during his recent hospital stay at [facility]. As you may know, George Styles, is [...] Saldana MD Division of Hospital Medicine p: [phone] f: [phone] CONSULTS DURING ADMISSION: IP CONSULT TO SURGERY - UROLOGY IP CONSULT TO NEPHROLOGY - TRANSPLANT (MEDICINE) IP CONSULT TO INTERVENTIONAL RADIOLOGY IP CONSULT TO PHYSICAL THERAPY IP CONSULT TO OCCUPATIONAL THERAPY IP CONSULT TO PHARMACY BEDSIDE DISCHARGE MED DELIVERY IMAGING / PROCEDURES / RESULTS: Should you require further information or copies of results or reports please contact Medical Information Management @ [phone] LABS AT TIME OF DISCHARGE: Lab Results [...] AT DISCHARGE: Zuly Bruno [address] [facility] / [place] [address] MEDICATIONS: Discharge Orders CT ABDOMEN/PELVIS WITHOUT CONTRAST [...] CAPS Generic drug: docusate Follow-up: Zuly Bruno, SENIOR ENERGY ANALYST [address] [place] [facility] [phone] Schedule an appointment as soon as possible for a visit Follow-up appointment with your, primary care physician within 7-10 days, after discharge. [address] [facility] [phone] Follow up The department of urology will [...] Phone 06/04/2022 10:40 AM IR CLINIC [facility], [facility] Interventional Radiology Clinic [phone] 06/27/2022 1:30 PM [facility], [facility] Department of Radiology Arrive at: Arrive to First Floor Registration Desk [phone] 06/27/2022 2:40 PM Ryan Yepez [facility] Arrive at: Arrive to 2nd Floor, Registration [address] 10/31/2022 1:[address] [facility] [phone] 01/16/2023 9:40 AM TRANSPLANT HEPATOLOGY , [facility] Trans[facility] [phone] Associated attestation - Daya Saldana MD - [...] Saldana MD Division of Hospital Medicine Pager [phone] documented in this encounter [facility] 05-20-2022 Hospital Discharge instructions Giulia [...] be changed by Interventional Radiology. Please call [phone] to schedule this appointment and with any questions or concerns you may have regarding the nephrostomy tube. If you have questions or concerns, please call Interventional Radiology at SOMEONE FROM INTERVENTIONAL RADIOLOGY WILL CALL YOU FOR A FOLLOW UP IN THE IR CLINIC Giulia Cavazos RN Nurse Coordinator Interventional Radiology Interventional Radiology Outpatient scheduling documented in this encounter [facility] 05-19-2022 Note Formatting of this [...] Goal: Interdisciplinary Rounds/Family Conf Outcome: Ongoing [facility] 05-19-2022 Note Formatting of this n ote might be different from the original. Discussed with [facility] re: possible urine culture performed at their facility. However, based on urinalysis completed at that time, which was only notable for hematuria, culture was not performed and sample no longer feasible for culture. Liam Julian MD Internal Medicine/Pediatrics, PGY-3 [facility] 05-18-2022 Note Formatting of this n ote might be different from the original. 2002: IHIS message sent to Dr Justyn Wen, regarding patient passing a small kidney stone, about the size of pea. MD notified. Stone left in strainer in pt bathroom. 0500: IHIS message sent to Dr Justyn Wen, regarding pt BP 174/77. [facility] 05-18-2022 Note Formatting of this [...] outcomes by discharge/transition of care. Outcome: Ongoing [facility] 05-18-2022 Note Formatting of this [...] becomes hyponatremic, NS should instead be used. [facility] Work Phone: 05-18-2022 Note Formatting of this n ote might be different from the original. IHIS chat sent to Dr Tray Quintana, regarding pt BP 190/86. Pt complaining of pain at site of neph tube. PRN pain medication given per order parameters. Pt denies any other symptoms at this time. MD notified and aware. [facility] 05-17-2022 Note Formatting of this n ote might be different from the original. At 0900, I rounded with Dr. Gamez and Dr. Saldana. At that time I checked Mr. Styles's vital signs. His pulse oximeter was low and he was tachypneic. Verbal order at bedside to put nasal cannula on starting at 2liters oxygen and to provide incentive spirometer. [facility] 05-17-2022 Note Formatting of this n ote might be different from the original. Interventional Radiology procedure completed with IR Attending Dr. Heart / Dr. Le of percutaneous right nephrostomy tube placement transplant kidney 10.2 Fr Griffin acosta Pt tolerated procedure with moderate sedation local numbing agent . Transported to inpatient after phase I recovery. Post procedure orders in place. [facility] 05-16-2022 Note Formatting of this n ote might be different from the original. At 1530, I text chavad Kaitlynn Gomez MD that patient has only had 25ml urine output in matias this afternoon. [facility] 05-16-2022 Note Formatting of this [...] with questions. Evan Byrd MD Urology, PGY-2 #[id number] [facility] Work Phone: 05-16-2022 Note Formatting of this n ote might be different from the original. I certify that this patient requires inpatient services at this time. I anticipate the expected length of stay will include at least two midnights. Inpatient services are due to the following medical concerns Obstructive kidney stone. Plans for post hospitalization care will be discharge to home. [facility] 05-16-2022 Consult note Associated Order (s): IP CONSULT TO NEPHROLOGY - TRANSPLANT (MEDICINE) I saw George Styles at the [facility] on 05/16/2022. Reason for Consultation: kidney [...] he was given flomax and sent home. [place] better but noticed more pain and decreased [...] best assessment and recommendations. Maxi Pringle MD [facility] Work Phone: 05-16-2022 Consult note Associated Order (s): IP CONSULT TO NEPHROLOGY - TRANSPLANT (MEDICINE) I saw George Styles at the [facility] on 05/16/2022. Reason for Consultation: kidney [...] he was given flomax and sent home. [place] better but noticed more pain and decreased [...] states he went to his local ED [place] and he was put on Flomax and he did improve. Pt states last night he was unable to void with severe right sided abd pain. Pt states nausea and no vomiting or fevers. Pt states he went back to [place] ED at 0100 and they placed a [...] orthotopic (N/A, 04/12/2020); and kidney transplant w/o [place] creek nephrectomy (N/A, 04/12/2020). 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 The [place] kidneys are progressively atrophic bilaterally compared to [...] of 06/14/2020 are no longer present. The [place] distal right ureter is decompressed beyond this [...] with surgical history for renal graft and [place] creek right urinary drainage, as a discrete ureteroneocystostomy is not identified, and the graft may be draining via a ureteroureterostomy. Urology consultation recommended. 3. The [place] kidneys are bilaterally atrophic, with right renal sinus calcifications consistent with nonobstructing right [place] renal calculi up to 6 mm. Normal [...] PGY-3, Department of Urologic Surgery Pager #: [phone] Associated attestation - Ryan Yepez MD - [...] continue flomax documented in this encounter [facility] 05-16-2022 Note Formatting of this [...] supported Trust Relationship/Rapport: care explained choices [facility] Note Formatting of this n ote might be different from the original. On admission to R10, a dual RN initial assessment of skin condition was performed by Kallie Lorenzana RN and Sheri Arguelles RN. Skin Assessment: WDL Jose Score: 20 LDA Added:N Kallie Lorenzana RN [facility] 05-15-2022 Emergency department Note Report given to Kallie RN at [facility] 05-15-2022 Emergency department Note Report given to Kallie RN at [facility] Bladder scan with Dr Villatoro at [...] diagnosed Thursday and was sent home with [facility]. He went back to that [...] 04/12/2020 Laterality: N/A; Surgeon: LU Palma; Location: [facility] SAME DAY SURGERY MAIN OR KIDNEY TRANSPLANT W/O TABLE MOUNTAIN NEPHRECTOMY N/A 04/12/2020 Laterality: N/A; Surgeon: LU [...] Schneider MD Resident 05/15/222030 Pt arrives from [facility] with kidney stones. Pt states he had right lower abd pain and right flank pain with blood in his urine since Thursday. Pt states he went to his local ED [place] and he was put on Flomax and he did improve. Pt states last night he was unable to void with severe right sided abd pain. Pt states nausea and no vomiting or fevers. Pt states he went back to [place] ED at 0100 and they placed a matias and CT scan completed and multiple kidney stones noted. [facility] as he had liver and kidney transplant in 03/2020. documented in this encounter [facility] 05-15-2022 History and physical note Internal Medicine Admission History & Physical Patient: George Styles, 1970, [id number] Physician: Evan Bennett MD, PGY1, Pager #[phone], GM 4 service Date of face to [...] DAY SURGERY MAIN OR KIDNEY TRANSPLANT W/O TABLE MOUNTAIN NEPHRECTOMY N/A 04/12/2020 Laterality: N/A; Surgeon: LU [...] erythema: Skin: No jaundice or rash Neuro: gem setter 3-7, 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 Strength grossly [...] dilation of the calyces may represent narrowing/partial [id number] ofthe ureter and mild hydronephrosis or sequela [...] Fred Prince MD Division of Hospital Medicine [phone] [facility] Work Phone: 05-15-2022 History and physical note Internal Medicine Admission History & Physical Patient: George Styles, 1970, [id number] Physician: Evan Bennett MD, PGY1, Pager #[phone], GM 4 service Date of face to [...] DAY SURGERY MAIN OR KIDNEY TRANSPLANT W/O TABLE MOUNTAIN NEPHRECTOMY N/A 04/12/2020 Laterality: N/A; Surgeon: LU [...] erythema: Skin: No jaundice or rash Neuro: gem setter 3-7, 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 Strength grossly [...] dilation of the calyces may represent narrowing/partial [id number] ofthe ureter and mild hydronephrosis or sequela ofrecent kidney transplat. 3. Unremarkable boweL Electronically enthentiental byRomaine IJMENEZ Date: 2020-06-14 12:25 Impression/Plan: George Styles is [...] Medicine [id number] documented in this encounter [facility] 05-15-2022 Emergency department Note Bladder scan with Dr Villatoro at bedside, 14ml noted [facility] 05-15-2022 Consult note Associated Order [...] states he went to his local ED [place] and he was put on Flomax and he did improve. Pt states last night he was unable to void with severe right sided abd pain. Pt states nausea and no vomiting or fevers. Pt states he went back to [place] ED at 0100 and they placed a [...] orthotopic (N/A, 04/12/2020); and kidney transplant w/o [place] creek nephrectomy (N/A, 04/12/2020). 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 The [place] kidneys are progressively atrophic bilaterally compared to [...] of 06/14/2020 are no longer present. The [place] distal right ureter is decompressed beyond this [...] with surgical history for renal graft and [place] right urinary drainage, as a discrete ureteroneocystostomy is not identified, and the graft may be draining via a ureteroureterostomy. Urology consultation recommended. 3. The [place] kidneys are bilaterally atrophic, with right renal sinus calcifications consistent with nonobstructing right [place] renal calculi up to 6 mm. Normal [...] PGY-3, Department of Urologic Surgery Pager #: [phone] Associated attestation - Ryan Yepez MD - [...] future before surgical intervention --may continue flomax [facility] Work Phone: 05-15-2022 Emergency department Note Advised Dr Schneider concerning no urine output via matias catheter. [facility] 05-15-2022 Physician Emergency department Note ED Attending George Styles has a past medical history of Acute renal failure, CAD (coronary artery disease), Cirrhosis, Dialysis patient, End stage renal disease (06/01/2018), Essential hypertension, benign, Hepatic encephalopathy, History of blood transfusion, and Liver cirrhosis. Presents with a chief complaint of kidney stone and diagnosed Thursday and was sent home with [facility]. He went back to that [...] plan of care. Gian Villatoro MD 05/15/222003 [facility] Work Phone: 05-15-[address] Schneider made aware of only 30 ml urine via matias since arrival to room. [facility] 05-15-2022 Physician Emergency department Note [...] 04/12/2020 Laterality: N/A; Surgeon: LU Palma; Location: [facility] SAME DAY SURGERY MAIN OR KIDNEY TRANSPLANT W/O TABLE MOUNTAIN NEPHRECTOMY N/A 04/12/2020 Laterality: N/A; Surgeon: LU Palma; Location: [facility] SAME DAY SURGERY MAIN OR OTHER SURGICAL [...] incorrections. Matt Schneider MD Resident 05/15/222030 [facility] Work Phone: 05-15-2022 Emergency department Note Pt arrives from [facility] with kidney stones. Pt states he had right lower abd pain and right flank pain with blood in his urine since Thursday. Pt states he went to his local ED [place] and he was put on Flomax and he did improve. Pt states last night he was unable to void with severe right sided abd pain. Pt states nausea and no vomiting or fevers. Pt states he went back to [place] ED at 0100 and they placed a matias and CT scan completed and multiple kidney stones noted. Pt sent to [facility] ED as he had liver and kidney transplant in 03/2020. [facility] 03-14-2022 History of Present illness [...] Required: No Mailing/Pickup Date: 03/17/2022 Shipping Address: [address] [place] [address] 179 Contact Info: Specialty ([place]) [phone] [facility] [phone] [facility] [phone] Raheem [phone] Bedside Delivery ([facility]) [phone] documented in this encounter [facility] 06-14-2021 History of Present illness [...] Goal Progress: Satisfactory Contact Info: Specialty ([place]) [phone] Jakob [phone] [facility] [phone] Raheem [phone] Bedside Delivery ([facility]) [phone] [facility] OP RX OUTREACH: Call Information: Date [...] Location: Home Signature Required: Yes Shipping Address: [address] [place] [id number] Contact Info: Specialty ([place]) [phone] Jakob [phone] [facility] [phone] Raheem [phone] Bedside Delivery ([facility]) [phone] documented in this encounter [facility] Evaluation note Diagnosis FAYE (acute kidney injury)- Primary Acute kidney failure, unspecified Hydronephrosis due to obstruction of ureteral orifice Hydronephrosis due to obstruction of ureteral orifice FAYE (acute kidney injury) Acute kidney failure, unspecified [facility] Follow-up exam- Primary Unspecified follow-up examination [facility] Diagnosis Immunosuppressed status- Primary Unspecified disorder of immune mechanism Kidney replaced by transplant Liver replaced by transplant Abnormal blood chemistry Other abnormal blood chemistry High risk medication use Encounter for long-term (current) use of other medications Aftercare following organ transplant Liver transplant recipient [facility] Diagnosis Attention to nephrostomy- Primary [facility] Diagnosis Other hydronephrosis- Primary [facility] Diagnosis FAYE (acute kidney injury) Acute kidney failure, unspecified [facility] Diagnosis Other hydronephrosis- Primary -donor kidney transplant recipient Kidney replaced by transplant [facility] Diagnosis Other hydronephrosis [facility] Diagnosis 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) Encounter for screening for malignant neoplasm of prostate Special screening for malignant neoplasm of prostate [facility] Diagnosis Abnormal blood chemistry- Primary Other abnormal blood chemistry Liver transplant recipient Kidney replaced by transplant Immunosuppressed status Unspecified disorder of immune mechanism Aftercare following organ transplant [facility] Kidney replaced by transplant- Primary [facility] Diagnosis Immunosuppressed status- Primary Unspecified disorder of immune mechanism Kidney replaced by transplant Aftercare following organ transplant High risk medication use Encounter for long-term (current) use of other medications Other general symptoms and signs Abnormal blood chemistry Other abnormal blood chemistry Hypertension secondary to other renal disorders [facility] Diagnosis Histoplasmosis- Primary Histoplasmosis, [...] Fever, unspecified [facility] Diagnosis Bilateral lower extremity [...] specified pre-operative examination [facility] Diagnosis Heart failure, diastolic, acute- Primary Acute diastolic heart failure [facility] Liver lesion- Primary Other specified disorders of liver Liver transplant recipient High risk medication use Encounter for long-term (current) use of other medications Therapeutic drug monitoring Encounter for therapeutic drug monitoring Immunocompromised Unspecified immunity deficiency [facility] Kidney replaced by transplant- Primary [facility] Consultation (Routine) - New Request Specialty Diagnoses / Procedures Referred By Deni edwards Referred To Contact Interventional Radiology Diagnoses Hydronephrosis due to obstruction of ureteral orifice Daya Saldana MD [address] [place] [address] Referral ID Status Reason Start Date Expiration Date V isits Requested Visits Authorized [id number] New Request 05/18/2022 06/12/2023 1 1 * Radiology (Emergency) - New Request Specialty Diagnoses / Procedures Referred By Contac t Referred To Contact Procedures US RENAL TRANSPLANT SCAN Daya Saldana MD [address] [place] [address] Referral ID Status Reason Start Date Expiration Date V isits Requested Visits Authorized [id number] New Request 05/16/2022 06/10/2023 1 1 * Consultation (Routine) - New Request Specialty Diagnoses / Procedures Referred By Contac t Referred To Contact Urology Diagnoses FAYE (acute kidney injury) Ryan Yepez MD [address] [place] [address] [address] [place] [address] Referral ID Status Reason Start Date Expiration Date V isits Requested Visits Authorized [id number] New Request 05/16/2022 06/10/2023 1 1 * MRI/CAT Scan (Routine) - New Request Specialty Diagnoses / Procedures Referred By Contac t Referred To Contact Diagnoses FAYE (acute kidney injury) Procedures CT ABDOMEN/PELVIS WITHOUT CONTRAST CHG CT SCAN,ABDOMENT AND PELVIS,W/O CONTRAST Ryan Yepez MD [address] [place] [address] [address] [place] [address] Referral ID Status Reason Start Date Expiration Date V isits Requested Visits Authorized [id number] New Request 05/16/2022 06/10/2023 1 1 * (Routine) - Pending Review Specialty Diagnoses / Procedures Referred By Contac t Referred To Contact Procedures PLATELET MONITORING PER PROTOCOL Daya Saldana MD [address] [place] [address] Referral ID Status Reason Start Date Expiration Date V isits Requested Visits Authorized [id number] Pending Review 05/15/2022 06/09/2023 1 1 * (Routine) - Pending Review Specialty Diagnoses / Procedures Referred By Contac t Referred To Contact Procedures DVT/VTE RISK ASSESSMENT Daya Saldana MD [address] [place] [address] Referral ID Status Reason Start Date Expiration Date V isits Requested Visits Authorized [id number] Pending Review 05/15/2022 06/09/2023 1 1 * (Routine) Specialty Diagnoses / Procedures Referred By Contac t Referred To Contact Evan Bennett MD [address] [place] [address] Referral ID Status Reason Start Date Expiration Date Visits Re quested Visits Authorized * (Routine) Specialty Diagnoses / Procedures Referred By Contac t Referred To Contact Evan Bennett MD [address] [place] [address] Referral ID Status Reason Start Date Expiration Date Visits Re quested Visits Authorized [facility] for referral (narrative)* Consultation (Routine) - New Request Specialty Diagnoses / Procedures Referred By Contac t Referred To Contact Sleep Medicine Diagnoses Kevin Conroy MD [address] [place] [address] Referral ID Status Reason Start Date Expiration Date V isits Requested Visits Authorized [id number] New Request 09/10/2023 10/04/2024 1 1 * MRI/CAT Scan (Routine) - New Request Specialty Diagnoses / Procedures Referred By Contac t Referred To Contact Diagnoses Histoplasmosis Procedures CT CHEST WITHOUT CONTRAST CHG DIAGNOSTIC COMPUTED TOMOGRAPHY THORAX W/O CNTRST Kevin Sage MD [address], [place] [address] Referral ID Status Reason Start Date Expiration Date V isits Requested Visits Authorized [id number] New Request 09/10/2023 10/04/2024 1 1 * Radiology (Routine) - New Request Specialty Diagnoses / Procedures Referred By Contac t Referred To Contact Procedures US RENAL TRANSPLANT SCAN Steve Latham MBBS [address] [place] [phone] Referral ID Status Reason Start Date Expiration Date V isits Requested Visits Authorized [id number] New Request 08/29/2023 09/22/2024 1 1 * (Routine) - New Request Specialty Diagnoses / Procedures Referred By Contac t Referred To Contact Procedures PLATELET MONITORING PER PROTOCOL Steve Latham MBBS [address], [place] [address] Referral ID Status Reason Start Date Expiration Date V isits Requested Visits Authorized [id number] New Request 08/28/2023 09/21/2024 1 1 * (Routine) - New Request Specialty Diagnoses / Procedures Referred By Contac t Referred To Contact Procedures DVT/VTE RISK ASSESSMENT Steve Latham MBBS [address], [place] [address] Referral ID Status Reason Start Date Expiration Date V isits Requested Visits Authorized [id number] New Request 08/28/2023 09/21/2024 1 1 [facility] Instructions * Patient Instructions - Christin Elizabeth APRN-CNP - 10/19/2018 9:21 AM EST You should take an extra dose of the lactulose as needed so that you are having 3-4 bowel movementsdaily. You should start the chemical dependency counseling as soon as possible. If you have questions, call the transplant social service director Fidelina Pierson. in this encounter* Patient Instructions - Sophie Cary, SAMI - 10/12/2018 11:09 AM EST You have been seen in the pre-transplant evaluation clinic by Dr. Restrepo and Sophie Cary. Sophie Cary is your pre-incident coordinator she can be reached at [phone] at any time for questions during the pre-transplant process. Your evaluation is complete pendin. Abdominal ultrasound. 2. 6 minute walk test. 3. Cardiology evaluation. Additionally, your gin feeder will recommend testing to screen for coronary artery disease. This will be scheduled for you after your cardiology visit. 4. Your coordinator will be requesting record from your last dental visit, colonoscopy and EGD. 5. Please work to complete social work recommendations. Your social service director will be contacting you to follow up on your progress. 6. You have also been referred for a kidney transplant. An appointment will be scheduled for you sari evaluated in the kidney transplant clinic after you have satisfied requirements dictated by [employer]. Once your testing is complete, we [...] ___ Other Name MRN * Christin Elizabeth, INTERNET MERCHANT-SENIOR ENERGY ANALYST - 10/19/2018 9:00 AM EST Formatting of this note may be different from the original. History of Present Illness: Chief Complaint Patient presents with Follow-up Cirrhosis George Styles is a 48 y.o. male who presents to the [facility] today regarding his diagnosis/chief complaint(s) of Cirrhosis secondary to ETOH, with ESRD follows with Dr. Orr. Currently undergoing evaluation for liver/kidney transplant. Has been seen in transplant clinic for eval. Still undergoing pre testing. Diagnosed in April 2018. Last drink was immediately prior to hospital admission in [place] for ACLF. Hospital course notable for ARF [...] (human immunodeficiency virus infection); Hyperlipidemia; Hyperthyroidism; Hypothyroidism; [place] (myocardial infarction); Migraine; DARLENE (obstructive sleep apnea); [...] 3. FU 12 weeks. in this encounter* RepublicRafiaFidelinaCRIS - 10/12/2018 10:00 AM EST Formatting of this note may be different from the original. Transplant Recipient Psychosocial Evaluation Demographics: Patient is a 48 y.o., White, Single, male, who presented for a liver and kidney transplant evaluation. Pt was AOx3. Transplant Front Desk Attendant role/function was explained and reviewed. The patient was informed that the results of this assessment will be shared with the referring provider and the transplant team. The patient verbalized understanding of this information. The [facility] psychosocial assessment consent form has been explained to patient and has been signed. Pt is completing this evaluation with brother (David) in the Outpatient setting. SWK educated pt on the benefits of completing/filing advanced directives and resources were offered. Pt identifies with WORSHIP restorationist. Pt confirms being a [place] Citizen. Pt.'s primary language is Armenian. Pt confirms the ability to read,write, and understand Armenian. Pt denies potential donors. Donor cards and [...] has valid license, does not regularly drive (SENIOR ENERGY ANALYST recommends that he not to drive). He reports availability of family or friend driving, public transportation (David, brother Tysahwn, sister in law Beverley& Mary) for additional assistance. He reports vision (blurry appt on Thursday) impairments. 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 Pt is on hemodialysis (3.0 started dialysis in April). Pt was diagnosed with organ related disease etoh cirrohosis April in [facility] for thirty days. [...] as well as referred him to pre incident coordinator. Pt and support demonstrated moderate understanding [...] brother David is a self employed plumbing and heating contractor. Additional support includes his other brother Tyshawn and his Mary live fifteen minutes away. Of note Mary is a payroll consultant for a [employer] is available to assist party coordinator. He confirms being comfortable asking for [...] in 2010, he was employed by the [employer]. He has access to SSDI payment (SSDI starts in November) in regards to financial means pre/ post-transplant. Pt confirms (meeting bills currently, ) being able to meet daily needs. Patient's brother asking for additional information on community resources, food stamps and [place]. Refer him to pt.'s dialysis center and the [facility]. Hereports access to Medicaid. Pt. denies history. [...] court ordered treatment after a DUI charge [facility] in [place], court ordered treatment in 2001 and in [...] by patient from his primary medical provider- SENIOR ENERGY ANALYST patient was noted as attending an alcohol [...] new visit Date of service: 10/12/2018 -Referring staple side laster for today's consult: -Primary Care Provider: Zuly [...] EST Timed up and go 9.9 seconds Fisher Swordfish Left 52.8 pounds Right 44.9 pounds Waist circ 38.5 inches * Sophie Cary, RN - 10/12/2018 10:00 AM EST Formatting of this note may be different from the original. Patient George Styles ([id number]), accompanied by his brother, was seen on [...] any further questions. Sophie GUERINN, RN Liver Mis Director Etiology: ETOH HCC: No ETOH: Yes Last [...] E Meliton 1.19 m/s MV Peak A Meilton 0.83 m/s E/A ratio 1.43 e' septal [...] eq 3.53 cm2 PISA-MS MV Peak E Melitno 1.19 m/s Doppler Measurements - Pulmonic Valve [...] RUQ/LIVER/GB Yovani Orr MD [address] [address] Status Reason Specialty Diagnoses / Procedures Referred By Contact Referred To Contact New Request Diagnoses Cirrhosis of liver with ascites, unspecified hepatic cirrhosis type Procedures US ABDOMEN RUQ/LIVER/GB Yovani Orr MD [address] [address] Specialty Diagnoses / Procedures Referred By Contac t Referred To Contact Diagnoses FAYE (acute kidney injury) Procedures CT ABDOMEN/PELVIS WITHOUT CONTRAST CHG CT SCAN,ABDOMENT AND PELVIS,W/O CONTRAST Central Scheduling [address] [place] [address] Referral ID Status Reason Start Date Expiration Date V isits Requested Visits Authorized [id number] Pending Review 05/16/2022 06/10/2023 1 1 Specialty Diagnoses / Procedures Referred By Contac t Referred To Contact Diagnoses Other hydronephrosis Procedures FLUORO IMAGING FOR UROLOGY Ryan Yepez MD [address] [facility] [address] [place] [address] Referral ID Status Reason Start Date Expiration Date V isits Requested Visits Authorized [id number] New Request 07/07/2022 08/01/2023 1 1 Specialty Diagnoses / Procedures Referred By Contac t Referred To Contact Procedures DIRECT ADMIT REQUEST Steve Latham MBBS [address] 11[address] [place] [address] Referral ID Status Reason Start Date Expiration Date V isits Requested Visits Authorized [id number] New Request 08/28/2023 09/21/2024 1 1 Specialty Diagnoses / Procedures Referred By Contac t Referred To Contact Radiology Diagnoses DARLENE (obstructive sleep apnea) Primary hypertension (CMS/HCC) Bilateral lower extremity edema Shortness of breath Procedures Echocardiogram 2D complete Zuly Bruno NP [address] [place] [address] Referral ID Status Reason Start Date Expiration Date Visits Requested Visits Authorized [id number] Incomplete Perform Procedure 01/06/2024 07/04/2024 1 1 Specialty Diagnoses / Procedures Referred By Contac t Referred To Contact Procedures US IMAGING REGIONAL ANESTHESIA Kehinde Gutierrez MD [address] [place] [address] Referral ID Status Reason Start Date Expiration Date V isits Requested Visits Authorized [id number] New Request 01/22/2024 02/15/2025 1 1 Specialty Diagnoses / Procedures Referred By Contac t Referred To Contact Cardiovascular Medicine Diagnoses Heart failure, diastolic, acute Kelvin Pacheco MD, MBBS [address] [place] [phone] Referral ID Status Reason Start Date Expiration Date V isits Requested Visits Authorized [id number] New Request 01/20/2024 02/13/2025 1 1 Specialty Diagnoses / Procedures Referred By Contac t Referred To Contact Procedures US ABDOMEN LIVER DOPPLER US ABDOMEN LIVER TRANSPLANT DOPPLER Timothy Joseph MD [address] [facility] [address] [place] [address] Referral ID Status Reason Start Date Expiration Date V isits Requested Visits Authorized [id number] New Request 01/16/2024 02/09/2025 1 1 Specialty Diagnoses / Procedures Referred By Contac t Referred To Contact Procedures DVT/VTE RISK ASSESSMENT Kelvin Pacheco MD, MBBS [address] [place], [place] [address] Referral ID Status Reason Start Date Expiration Date V isits Requested Visits Authorized [id number] New Request 01/16/2024 02/09/2025 1 1 Specialty Diagnoses / Procedures Referred By Contac t Referred To Contact Procedures PLATELET MONITORING PER PROTOCOL Kelvin Pacheco MD, MBBS [address] [place] [address] Referral ID Status Reason Start Date Expiration Date V isits Requested Visits Authorized [id number] New Request 01/16/2024 02/09/2025 1 1 Referral ID Status Reason Start Date Expiration Date V isits Requested Visits Authorized [id number] New Request 01/16/2024 02/09/2025 1 1 Specialty Diagnoses / Procedures Referred By Contac t Referred To Contact Procedures ECG Kelvin Pacheco MD, MBBS [address] [place] [address] Referral ID Status Reason Start Date Expiration Date V isits Requested Visits Authorized [id number] New Request 01/16/2024 02/09/2025 1 1 Specialty Diagnoses / Procedures Referred By Contac t Referred To Contact Diagnoses Liver lesion Procedures MRI ABDOMEN WITH AND WITHOUT CONTRAST CHG MRI ABDOMEN W/O & W/CONTRAST MATERIAL Daisha Max, DO [address] [place] [address] Referral ID Status Reason Start Date Expiration Date V isits Requested Visits Authorized [id number] New Request 06/17/2024 07/12/2025 1 1 Advance Directives Documents on File Type Date 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 Advance Directives and Living Will Power of Customer Account Coordinator Latest Code Status on File Code Status [...] Yovani Orr MD [address] [address] Status Reason Specialty Diagnoses / Procedures Referre d By Contact Referred To Contact Denied Diagnoses Alcoholic cirrhosis, unspecified whether ascites present Pre-transplant evaluation for liver transplant Procedures MRI ABDOMEN WITH CONTRAST IL MRI, ABDOMEN W/CONTRAST Yovani Orr MD [address] [address] Reason Comments Liver Recipient Evaluation Status Reason Specialty Diagnoses / Procedures Referred By Contact Referred To Contact New Request Transplant / Transplant Surgery Procedures PRE NEW PATIENT Yovani Orr MD [address] [address] Alfredito Restrepo MD [address] 11[address] [place] [address] Reason Comments Reschedule Reason Comments Outside Medical Records Request Reason Comments Social Work Follow-up Reason Comments Kidney Stone Specialty Diagnoses / Procedures Referred By Contac t Referred To Contact Diagnoses Obstructing kidney stone, s/p kidney transplant 2019 Daya Saldana MD [address] [place] [address] [facility] [address] [place] [address] Referral ID Status Reason Start Date Expiration Date Visits Re quested Visits Authorized [id number] 1 1 Reason Comments Follow-up Reason Comments Kidney Recipient Follow-up Liver Recipient Follow-up Reason Comments Consult Reason Comments New Patient Hospital follow up Specialty Diagnoses / Procedures Referred By Contac t Referred To Contact Urology Diagnoses hosp fu with [address] prior Procedures NEW TO DOC/RET PATIENT Zuly Bruno CNP [address] [place] [address] Ryan Yepez MD [address] [facility] [address] [place] [address] Referral ID Status Reason Start Date Expiration Date Visits Re quested Visits Authorized [id number] Closed 06/27/2022 07/22/2023 1 1 Specialty Diagnoses / Procedures Referred By Contac t Referred To Contact Diagnoses FAYE (acute kidney injury) Procedures CT ABDOMEN/PELVIS WITHOUT CONTRAST CHG CT SCAN,ABDOMENT AND PELVIS,W/O CONTRAST Central Scheduling [address] [place] [address] Referral ID Status Reason Start Date Expiration Date V isits Requested Visits Authorized [id number] Pending Review 05/16/2022 06/10/2023 1 1 Reason Comments Follow-up Specialty Diagnoses / Procedures Referred By Contac t Referred To Contact Urology Diagnoses 1 week fu post NT clamp Procedures RETURN PATIENT Zuly Bruno CNP [address] [place] [address] Ryan Yepez MD [address] [facility] [address] [place] [address] Referral ID Status Reason Start Date Expiration Date Visits Requested Visits Authorized [id number] Authorized - 07/07/2022 08/01/2023 2 2 Specialty Diagnoses / Procedures Referred By Contac t Referred To Contact Diagnoses Other hydronephrosis Procedures FLUORO IMAGING FOR UROLOGY Ryan Yepez MD [address] [facility] [address] [place] [address] Referral ID Status Reason Start Date Expiration Date V isits Requested Visits Authorized [id number] New Request 07/07/2022 08/01/2023 1 1 Specialty Diagnoses / Procedures Referred By Contac t Referred To Contact Urology Diagnoses 1 week fu post NT clamp Procedures RETURN PATIENT Zuly Bruno, ROB [address] [place] [address] Ryan Yepez MD [address] [place] [address] [address] [place] [address] Referral ID Status Reason Start Date Expiration Date Visits Re quested Visits Authorized [id number] Closed 07/07/2022 08/01/2023 2 2 Reason Comments Liver Recipient Follow-up Reason Comments Kidney Recipient Follow-up Reason Comments Kidney Recipient Follow-up Specialty Diagnoses / Procedures Referred By Contac t Referred To Contact Diagnoses Kidney replaced by transplant Steve Latham MBBS [address] [place] [address] [facility] [address] [place] [address] Referral ID Status Reason Start Date Expiration Date Visits Re quested Visits Authorized [id number] 1 1 Specialty Diagnoses / Procedures Referred By Contac t Referred To Contact Diagnoses Pleural effusion on right PNEUMONIA- HX LIVER AND KIDNEY TRANSPLANT Kevin Sage MD [address] 11[address] [place] [address] [facility] [address] [place] [address] Referral ID Status Reason Start Date Expiration Date Visits Re quested Visits Authorized [id number] 1 1 Reason Comments New Patient Specialty Diagnoses / Procedures Referred By Contdaniel t Referred To Contact Cardiovascular Medicine Diagnoses Heart failure, diastolic, acute Kelvin Pacheco MD, MBBS [address] 1st [place] [address] Referral ID Status Reason Start Date Expiration Date Visits Requested Visits Authorized [id number] Authorized - 01/20/2024 02/13/2025 5 5 Reason Comments Liver Recipient Follow-up (unrecognized sect ion and content) No Status Records FoundNo Status Records FoundNo Status Records FoundNo Status Records FoundNo Status Records FoundNo Status Records Found INFORMATION SOURCE (unrecogn ized section and content) DATE CREATED AUTHOR 01/07/2020 [facility] DATE CREATED AUTHOR AUTHOR'S ORGANIZ ATION 01/27/2021 [facility] DATE CREATED AUTHOR AUTHOR'S ORGANIZ ATION 05/11/2023 [facility] DATE CREATED AUTHOR AUTHOR'S ORGANIZ ATION 04/19/2024 [facility] dical Specialists [facility] DATE CREATED AUTHOR AUTHOR'S ORGANIZ ATION 06/03/2024 [facility] DATE CREATED AUTHOR AUTHOR'S ORGANIZ ATION 06/20/2024 [facility] Care Teams (unrecognized sec tion and content) Milk Pasteurizer Relationship Specialty Start Date End Date Zuly Bruno, ROB PCP - General 07/19/18 Comfort Rivera, [facility] [address] [facility] [address] [place] [address] Pharmacist Pharmacist 05/16/20 Angel Carpio RP,PharmD Pharmacist Pharmacist 05/16/[address] [facility],PharmD Pharmacist Pharmacist 01/09/21 Milk Pasteurizer Relationship Specialty Start Date End Date Zuly Bruno CNP PCP - General 07/19/18 Comfort Rivera, [facility] [address] [place] [address] Pharmacist Pharmacist 05/16/20 Angel Carpio, [facility],PharmD Pharmacist Pharmacist 05/16/[address],PharmD Pharmacist Pharmacist 01/09/21 Milk Pasteurizer Relationship Specialty Start Date End Date Zuly Bruno CNP PCP - General 07/19/18 Milk Pasteurizer Relationship Specialty Start Date End Date Zuly Bruno CNP PCP - General 07/19/18 Milk Pasteurizer Relationship Specialty Start Date End Date Zuly Bruno CNP PCP - General 07/19/18 Milk Pasteurizer Relationship Specialty Start Date End Date Zuly Bruno CNP PCP - General 07/19/18 Milk Pasteurizer Relationship Specialty Start Date End Date Zuly Bruno CNP PCP - General 07/19/18 Milk Pasteurizer Relationship Specialty Start Date End Date Zuly Bruno CNP PCP - General 07/19/18 Milk Pasteurizer Relationship Specialty Start Date End Date Zuly Bruno CNP PCP - General 07/19/18 Milk Pasteurizer Relationship Specialty Start Date End Date Zuly Bruno CNP PCP - General 07/19/18 Milk Pasteurizer Relationship Specialty Start Date End Date Zuly Bruno CNP PCP - General 07/19/18 Milk Pasteurizer Relationship Specialty Start Date End Date Zuly Bruno CNP PCP - General 07/19/18 Milk Pasteurizer Relationship Specialty Start Date End Date Zuly Bruno CNP PCP - General 07/19/18 Milk Pasteurizer Relationship Specialty Start Date End Date Zuly Bruno CNP PCP - General 07/19/18 Milk Pasteurizer Relationship Specialty Start Date End Date BrianlatishaZuly tipton CNP PCP - General 07/19/18 Milk Pasteurizer Relationship Specialty Start Date End Date Zuly Bruno CNP PCP - General 07/19/18 Milk Pasteurizer Relationship Specialty Start Date End Date Zuly Bruno CNP PCP - General 07/19/18 Evan White DO [facility] [employer] [place] [address] Infectious Disease Infectious Disease 09/09/23 Milk Pasteurizer Relationship Specialty Start Date End Date LexielydialatishaZuly tipton ROB PCP - General 07/19/18 Evan White [place] [address] Infectious Disease Infectious Disease 09/09/23 Milk Pasteurizer Relationship Specialty Start Date End Date Zuly Bruno CNP PCP - General 07/19/18 Evan White [place] [place] [address] Infectious Disease Infectious Disease 09/09/23 Milk Pasteurizer Relationship Specialty Start Date End Date Momo Verdugo MD PCP - General Family Medicine 05/21/23 Milk Pasteurizer Relationship Specialty Start Date End Date Momo Verdugo MD PCP - General Family Medicine 05/21/23 Milk Pasteurizer Relationship Specialty Start Date End Date Momo Verdugo MD PCP - General Family Medicine 05/21/23 Milk Pasteurizer Relationship Specialty Start Date End Date Zuly Bruno CNP PCP - General 07/19/18 [place] [address] Infectious Disease Infectious Disease 09/09/23 Milk Pasteurizer Relationship Specialty Start Date End Date Zuly Bruno CNP PCP - General 07/19/18 Evan White DO [address] [place], [place] [address] Infectious Disease Infectious Disease 09/09/23 Milk Pasteurizer Relationship Specialty Start Date End Date Zuly Bruno CNP PCP - General 07/19/18 Evan White DO [address] [place] [address] Infectious Disease Infectious Disease 09/09/23 Milk Pasteurizer Relationship Specialty Start Date End Date Zuly Bruno CNP PCP - General 07/19/18 Evan White DO [address] [place] [address] Infectious Disease Infectious Disease 09/09/23 Milk Pasteurizer Relationship Specialty Start Date End Date Zuly rBuno CNP PCP - General 07/19/18 Evan White DO [address] [place] [address] Infectious Disease Infectious Disease 09/09/23 Milk Pasteurizer Relationship Specialty Start Date End Date Zuly Bruno CNP PCP - General 07/19/18 Milk Pasteurizer Relationship Specialty Start Date End Date Zuly Bruno CNP PCP - General 07/19/18 Milk Pasteurizer Relationship Specialty Start Date End Date Zuly Bruno CNP PCP - General 07/19/18 Milk Pasteurizer Relationship Specialty Start Date End Date Zluy Bruno CNP PCP - General 07/19/18 Milk Pasteurizer Relationship Specialty Start Date End Date Zuly Bruno CNP PCP - General 07/19/18 Milk Pasteurizer Relationship Specialty Start Date End Date Zuly [...] Provider: Leon Cook RN)[phone] (Stopped - Provider: Loen Cook, RN)1322 (Stopped - Provider: Leon Cook [...] Reason: Transfer to a Procedural area)141 ([facility] Unhold - Provider: Automatic Transfer)2008 [...] (Given - Provider: Terra Heart RN)105 ([facility] Hold - Provider: Automatic Transfer - Reason: Transfer to a Procedural area)141 ([facility] Unhold - Provider: Automatic Transfer)2008 (Given - Provider: Tati Ahmadi RN) 919 (Given - Provider: Terra Heart RN) Sulfamethoxazole-trime thoprim (BACTRIM DS) 800-160 MG per tablet 1 tablet 1 tablet, Oral, THREE TIMES WEEKLY (Once per day on Thursday), First dose on Thu01/18/24 at 0900, Until Discontinued 08 (Given - Provider: Terra Heart RN)1052 ([facility] Hold - Provider: Automatic Transfer - Reason: Transfer to a Procedural area)1413 ([facility] Unhold - Provider: Automatic Transfer) tacrolimus (PROGRAF) susp 0.2 mg 0.2 mg, Oral, CUSTOM FREQUENCY (Once per day on Thursday), First dose on 01/16/24 at 0900, Until Discontinued, Caution check route of administration. For sublingual administration, place liquid under tongue and allow absorption. 08 (Given - Provider: Erica Gudino RN) 1052 ([facility] Hold - Provider: Automatic Transfer - Reason: Transfer to a Procedural area)141 ([facility] Unhold - Provider: Automatic Transfer) 922 (Given - Provider: Terra Heart RN) Tamsulosin HCl (FLOMAX) capsule 0.4 mg 0.4 mg, Oral, DAILY, First dose on 01/16/24 at 0900, Until Discontinued, Slow release product. Do not chew or crush 42 (Given - Provider: Erica Gudino RN) 08 (Given - Provider: Terra Heart RN)105 ([facility] Hold - Provider: Automatic Transfer - Reason: Transfer to a Procedural area)141 ([facility] Unhold - Provider: [...] BE BASED ON THE PRIMARY CLINICAL RECORDS. [employer] [facility]. provides no warranty or guarantee of the accuracy or completeness of information in this document.
[2024-08-02 07:31] LABS: Basophils Percent Auto 0.8 % (0.2-2.0); Eosinophils Absolute Auto 0.1 10^3/uL (0.0-0.7); Eosinophils Percent Auto 1.8 % (0.9-7.0); Hematocrit 47.2 % (42.0-54.0); Hemoglobin 15.7 g/dL (14.0-18.0); Immature Granulocytes Abs Auto 0.01 10^3/uL (0.00-0.03); Immature Granulocytes Pct Auto 0.2 % (0.0-0.5); Lymphocytes Absolute Auto 1.5 10^3/uL (1.2-3.8); Lymphocytes Percent Auto 29.9 % (20.5-60.0); Mean Corpuscular HGB Conc 33.3 g/dL (29.9-35.2); Mean Corpuscular Hemoglobin 29.1 pg (25.9-34.0); Mean Corpuscular Volume 87.4 fL (80.0-94.0); Monocytes Absolute Auto 0.4 10^3/uL (0.3-0.8); Monocytes Percent Auto 8.8 % (1.7-12.0); Neutrophils Absolute Auto 2.9 10^3/uL (1.4-6.5); Neutrophils Percent Auto 58.5 % (43.0-75.0); Platelet Count 238 10^3/uL (150-450); Red Cell Distribution Width 12.2 % (11.0-15.0); White Blood Count 4.9 10^3/uL (4.0-11.0)
[2024-08-02 07:36] LABS: Creatinine Urine Random 134.02 mg/dL (20.00-300.00); Total Protein Urine Random 13.8 mg/dL (<=11.9)
[2024-08-02 09:14] LABS: Alanine Aminotransferase 26 U/L (16-63); Alkaline Phosphatase 108 U/L (46-116); Aspartate Amino Transferase 21 U/L (15-37); BUN Creatinine Ratio 13.5; Bilirubin Direct 0.3 mg/dL (0.0-0.2); Bilirubin Total 1.2 mg/dL (0.2-1.0); Calcium 9.5 mg/dL (8.5-10.1); Chloride 103 mmol/L (98-107); Estimated GFR (African America >60 (>=60); Estimated GFR (Non-African Ame 56 (>=60); Gamma Glutamyl Transpeptidase 21 U/L (15-85); Glucose 114 mg/dL (74-106); Magnesium 1.7 mg/dL (1.8-2.4); Potassium 3.8 mmol/L (3.5-5.1); Sodium 140 mmol/L (136-145)
[2024-08-02 09:19] LABS: Anion Gap 12.9; Carbon Dioxide 27.9 mmol/L (21.0-32.0)
[2024-08-04 12:11] LABS: Tacrolimus (FK506), Blood 4.4 ng/mL (2.0-20.0)
== END 2024-08-02 06:45 | disposition home or self-care (01) ==
LOC: LAB 06:44
PROVIDERS: PCP Nurse Practitioner
DX: R79.9 Abnormal finding of blood chemistry, unspecified (principal); Z94.4 Liver transplant status; Z94.0 Kidney transplant status; B39.9 Histoplasmosis, unspecified; D84.9 Immunodeficiency, unspecified; Z48.298 Encounter for aftercare following other organ transplant
CPT/HCPCS: 36415; 80048; 80189; 80197; 82042; 82247; 82248; 82570; 82977; 83735; 84075; 84100; 84156; 84450; 84460; 85025

== ENCOUNTER 2024-08-15 06:47 | Outpatient (OUT) | payer MEDICARE, MEDICAID, SELFPAY ==
--- OUTSIDE RECORDS SUMMARY | 2024-08-15 06:56 | XMS_ITS | CCD ---
Author Organization [facility] Care Team Providers Care Director Medical Surgical Name Role Phone Kiana Zuly Unavailable Unavailable [...] AICHHOLZ, ZULY Primary Care Unavailable Aichholz [facility] Primary Care Provider Migeul RPComfort Unavailable Shirin [facility],PharmD, Angel Unavailable Unavailab makayla Leigh [facility],PharmD, Te Unavailable Unavai lable [facility] Provider CHANDUC, DR BURCH Admitting Unavailable MISC, DR BURCH Consulting Unavailable AICHHOLZ, LOKIE DRIVER ZULY Primary Care Unavailable MISC, DR BURCH Attending Unavailable MISC, DR BURCH Admitting Unavailable MISC, DR BURCH Consulting Unavailable AICHHOLZ, LOKIE DRIVER ZULY Primary Care Unavailable MISC, DR BURCH Attending Unavailable ARCELIA PIZARRO Consulting Unavailable KE BURNHAM Attending Unavailable KE BURNHAM Admitting Unavailable BARBARA, DR MÓNICA Munoz Consulting Unavailable AICHHOLZ, LOKIE DRIVER ZULY Primary Care Unavailable KE BURNHAM Consulting Unavailable MISC, DR BURCH Consulting Unavailable MISC, DR BURCH Attending Unavailable AICHHOLZ, LOKIE DRIVER ZULY Primary Care Unavailable MISC, DR BURCH Admitting Unavailable MISC, DR BURCH Consulting Unavailable MISC, DR BURCH Attending Unavailable AICHHOLZ, LOKIE DRIVER ZULY Primary Care Unavailable MISC, DR BURCH Admitting Unavailable MISC, DR BURCH Consulting Unavailable AICHHOLZ, LOKIE DRIVER ZULY Primary Care Unavailable MISC, DOCTOR Admitting Unavailable MISC, DR DOCTOR Attending Unavailable MELINDA, DR GEORGE Munoz Consulting Unavailable MELINDA, DR GEORGE Munoz Attending Unavailable AICHHOLZ, LOKIE DRIVER ZULY Primary Care Unavailable MELINDA, DR GEORGE Munoz Admitting Unavailable NAUN ., KE Consulting Unavailable MIRANDA, LYNDSAY Consulting Unavailable MELINDA, DR GEORGE Munoz Consulting Unavailable NAUN ., KE Attending Unavailable NAUN ., KE Admitting Unavailable AICHHOLZ, LOKIE DRIVER ZULY Primary Care Unavailable NAUN ., KE Consulting Unavailable GIAN HERRING Consulting Unavailable AICHHOLZ, LOKIE DRIVER ZULY Consulting Unavailable AICHHOLZ, LOKIE DRIVER ZULY Attending Unavailable AICHHOLZ, LOKIE DRIVER ZULY Admitting Unavailable AICHHOLZ, LOKIE DRIVER ZULY Primary Care Unavailable MISC, DR DOCTOR Consulting Unavailable MISC, DOCTOR Admitting Unavailable MISC, DOCTOR Attending Unavailable AICHHOLZ, LOKIE DRIVER ZULY Primary Care Unavailable MISC, DR DOCTOR Consulting Unavailable MISC, DR DOCTOR Attending Unavailable MISC, DOCTOR Admitting Unavailable AICHHOLZ, LOKIE DRIVER ZULY Primary Care Unavailable MISC, DOCTOR Admitting Unavailable MISC, DOCTOR Consulting Unavailable MISC, DR DOCTOR Attending Unavailable AICHHOLZ, LOKIE DRIVER ZULY Primary Care Unavailable MISC, DOCTOR Admitting Unavailable MISC, DR DOCTOR Consulting Unavailable AICHHOLZ, LOKIE DRIVER ZULY Primary Care Unavailable MISC, DR DOCTOR Attending Unavailable MISC, DOCTOR Admitting Unavailable MISC, DOCTOR Consulting Unavailable AICHHOLZ, LOKIE DRIVER ZULY Primary Care Unavailable MISC, DR DOCTOR Attending Unavailable AICHHOLZ, LOKIE DRIVER ZULY Consulting Unavailable AICHHOLZ, LOKIE DRIVER ZULY Attending Unavailable AICHHOLZ, LOKIE DRIVER ZULY Admitting Unavailable AICHHOLZ, LOKIE DRIVER ZULY Primary Care Unavailable DR MÓNICA JIMENEZ Consulting Unavailable Aichholz [facility], Zuly Primary Care Provider Evan White DO Unavailable [facility], Zuly Primary Care Provider Tran White DOs A Unavailable [phone] Momo Verdugo MD Primary Care Provider Aichholz LOKIE DRIVER, Zuly Primary Care Provider AICHHOLZ, ZULY Attending [...] Propensity to adverse reactions (disorder) 8 [facility] Repository (20 sources) Shellfish-Derive d Products Propensity to adverse reactions to drug 9 [facility] (1 source) Shellfish Drug allergy (disorder) [facility] Repository Medications Current Medications Medication Drug [...] 1 capsule by mouth once daily b bemusjs-C-nlfik acid (NEPHROCAPS) 1 MG capsule Take 1 [...] ankle pain. 0 06/12/2020 06/12/2023 Discontinued lactulose 62565 mg powder for oral solution (19 sources) [...] itraconazole Fax results to: Dr. White - [phone] Transplant Neph - [phone] Each 09/10/2023 01/19/2024 Discontinued (Medication Reconciliation (suppress cancel msg)) Start: 09-10-2023 CUSTOM MEDICAT ION Labs to be obtained: 1- Tacrolimus level, trough - collect twice weekly until 09/24/23, then weekly until 10/08/23, them once every two weeks there after. 2- Itraconazole level - obtain once between 09/14-09/18. 3- Chem 6 - Obtain weekly while on itraconazole Fax results to: Dr. 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 Normal [facility] Office Visiton 05-13-2024 Follow-up visit [id number] George Styles 1970 M Date Provider Department [facility] Family History Problem Relation Age of Onset Coronary artery disease Mother Coronary artery disease Father Family Status - Relation Status Age at Mother Father Level of Service:46513 [place] OFFICE/OUTPATIENT ESTABLISHED LOW MDM 20 MIN Reason for Visit and Comments: Follow-up [779673] - Yearly follow up Normal [facility] B-TYPE NATRIURETIC PEPTIDE ( BRAIN)on 02-26-2024 Interpretation and review of laboratory results Normal [facility] Natriuretic peptide B (Bld) [Mass/Vol] 72 pg/mL 0 - 100 pg/mL [facility] Natriuretic peptide B (Bld) [Mass/Vol] 72 pg/mL Normal 0-100 [facility] Comment on above: Performed By: #### B TURKEY PICKER ####[facility] (DEFAULT)[address] [place] [address] CHEM 6 (LYTES, BUN CREA)on 0 02-26-2024 Anion gap [Moles/Vol] 13 mmol/L 7 - 17 mmol/L [facility] Chloride [Moles/Vol] 107 mmol/L 98 - 10 8 mmol/L [facility] CO2 [Moles/Vol] 25 mmol/L 21 - 31 mmol/L [facility] Creatinine [Mass/Vol] 1.23 mg/dL 0.70 - 1.30 mg/dL [facility] eGFR, CKD-EPI, Male 71 - PINF [facility] Comment on above: Reported eGFR is bas ed on the CKD-EPI 2020 equation using creatinine, age, and sex. Potassium [Moles/Vol] 4.2 mmol/L 3.5 - 5.0 mmol/L [facility] Sodium [Moles/Vol] 141 mmol/L 135 - 145 mmol/L [facility] Urea nitrogen [Mass/Vol] 17 mg/dL 7 - 25 mg/dL [facility] Urea nitrogen/Creatinine [Mass ratio] 14 mg/mg [facility] Anion gap [Moles/Vol] 13 mmol/L Normal 7-17 [facility] Comment on above: Performed By: #### C HM6 ####[facility] (DEFAULT)[address] [place] [address] Chloride [Moles/Vol] 107 mmol/L Normal 98-108 [facility] Comment on above: Performed By: #### C HM6 ####[facility] (DEFAULT)[address] [place] [address] CO2 [Moles/Vol] 25 mmol/L Normal 21-31 [facility] Comment on above: Performed By: #### C HM6 ####[facility] (DEFAULT)[address] [facility] [place] [address] Creatinine [Mass/Vol] 1.23 mg/dL Normal 0.70-1.30 [facility] Comment on above: Performed By: #### C HM6 ####[facility] (DEFAULT)[address] [facility] [place] [address] GFR/1.73 sq M.predicted among non-blacks MDRD (S/P/Bld) [Vol rate/Area] 70 mL/min/{1.73_m2} Normal >=60 [facility] Comment on above: Result Comment: Repo rted eGFR is based on the CKD-EPI 2020 equation using creatinine, age, and sex. Performed By: #### C HM6 ####[facility] (DEFAULT)[address] [facility] [place] [facility] [place] [address] Potassium [Moles/Vol] 4.2 mmol/L Normal 3.5-5.0 [facility] Comment on above: Performed By: #### C HM6 ####[facility] (DEFAULT)[address] [facility] [place] [address] Sodium [Moles/Vol] 141 mmol/L Normal 135-145 [facility] Comment on above: Performed By: #### C HM6 ####[facility] (DEFAULT)[address] [facility] [place] [address] Urea nitrogen [Mass/Vol] 17 mg/dL Normal 7-25 [facility] Comment on above: Performed By: #### C HM6 ####[facility] (DEFAULT)[address] [facility] [place] [address] Urea nitrogen/Creatinine [Mass ratio] 14 mg/mg Normal [facility] Comment on above: Performed By: #### C HM6 ####[facility] (DEFAULT)[address] [facility] [place] [address] CBC,PLATELETSon 01-23-2024 Erythrocyte distribution width (RBC) [Ratio] 14.2 % 10.9 - 14.3 % [facility] Hematocrit (Bld) [Volume fraction] 37.0 % Low 39.6 - 48.8 % [facility] Hemoglobin (Bld) [Mass/Vol] 12.0 g/dL Low 13.4 - 16.8 g/dL [facility] Interpretation and review of laboratory results Abnormal [facility] MCH (RBC) [Entitic mass] 28.6 pg 26.1 - 33.3 pg [facility] MCHC (RBC) [Mass/Vol] 32.4 g/dL 31.9 - 36.5 g/dL [facility] MCV (RBC) [Entitic vol] 88.1 fL 79.0 - 94.5 fL [facility] Platelet mean volume (Bld) [Entitic vol] 10.4 fL 8.7 - 12.3 fL [facility] Platelets (Bld) [#/Vol] 170 10*3/uL 146 - 337 K/uL [facility] RBC (Bld) [#/Vol] 4.20 10*6/uL Low [facility] WBC (Bld) [#/Vol] 3.70 10*3/uL Low 3.73 - 10. 10 K/uL [facility] Hematocrit (Bld) [Volume fraction] 37.0 % Low 39.6-48.8 [facility] Comment on above: Performed By: #### H [facility] ####[facility] (DEFAULT)[address] [place] [address] Hemoglobin (Bld) [Mass/Vol] 12.0 g/dL Low 13.4-16.8 [facility] Comment on above: Performed By: #### H [facility] ####[facility] (DEFAULT)[address] [place] [address] MCV (RBC) [Entitic vol] 88.1 fL Normal 79.0-94.5 [facility] Comment on above: Performed By: #### H [facility] ####[facility] (DEFAULT)[address] [facility] [place] [address] Mean Cell Hgb 28.6 pg Normal 26.1-33.3 [facility] Comment on above: Performed By: #### H EMOGC ####[facility] (DEFAULT)[address] [facility] [place] [address] Mean Cell Hgb Conc 32.4 g/dL Normal 31.9-36.5 [facility] Comment on above: Performed By: #### H EMOGC ####[facility] (DEFAULT)[address] [facility] [place] [address] Platelet mean volume (Bld) [Entitic vol] 10.4 fL Normal 8.7-12.3 [facility] Comment on above: Performed By: #### H EMOGC ####[facility] (DEFAULT)[address] [facility] [place] [address] Platelets (Bld) [#/Vol] 170 10*3/uL Normal 146-337 [facility] Comment on above: Performed By: #### H EMOGC ####[facility] (DEFAULT)[address] [facility] [place] [address] RBC (Bld) [#/Vol] 4.20 10*6/uL Low 4.38-5.83 [facility] Comment on above: Performed By: #### H EMOGC ####[facility] (DEFAULT)[address] [facility] [place] [address] RBC Distribution 14.2 % Normal 10.9-14.3 [facility] Comment on above: Performed By: #### H EMOGC ####[facility] (DEFAULT)[address] [facility] [place] [address] WBC (Bld) [#/Vol] 3.70 10*3/uL Low 3.73-10.10 [facility] Comment on above: Performed By: #### H EMOGC ####[facility] (DEFAULT)[address] [place] [address] CHEM 7 (LYTES,BUN,CREA,GLUC) on 01-23-2024 Anion gap [Moles/Vol] 14 mmol/L 7 - 17 mmol/L [facility] Chloride [Moles/Vol] 105 mmol/L 98 - 10 8 mmol/L [facility] CO2 [Moles/Vol] 25 mmol/L 21 - 31 mmol/L [facility] Creatinine [Mass/Vol] 1.32 mg/dL High 0.70 - 1.30 mg/dL [facility] eGFR, CKD-EPI, Male 65 - PINF [facility] Comment on above: Reported eGFR is bas ed on the CKD-EPI 2020 equation using creatinine, age, and sex. Glucose [Mass/Vol] 94 mg/dL 70 - 99 mg/dL [facility] Osmolality Calc [Osmolality] 296 [facility] Potassium [Moles/Vol] 3.8 mmol/L 3.5 - 5.0 mmol/L [facility] Sodium [Moles/Vol] 140 mmol/L 135 - 145 mmol/L [facility] Urea nitrogen [Mass/Vol] 23 mg/dL 7 - 25 mg/dL [facility] Urea nitrogen/Creatinine [Mass ratio] 17 mg/mg [facility] Anion gap [Moles/Vol] 14 mmol/L Normal 7-17 [facility] Comment on above: Performed By: #### NATHANIEL RAMÍREZ, HFP ####[facility] (DEFAULT)[address] [place] [address] Chloride [Moles/Vol] 105 mmol/L Normal 98-108 [facility] Comment on above: Performed By: #### NATHANIEL RAMÍREZ, HFP ####[facility] (DEFAULT)[address] [place] [address] CO2 [Moles/Vol] 25 mmol/L Normal 21-31 [facility] Comment on above: Performed By: #### NATHANIEL RAMÍREZ, HFP ####[facility] (DEFAULT)[address] [place] [address] Creatinine [Mass/Vol] 1.32 mg/dL High 0.70-1.30 [facility] Comment on above: Performed By: #### M NATHANIEL BLOOM, HFP ####[facility] (DEFAULT)[address] [place] [address] GFR/1.73 sq M.predicted among non-blacks MDRD (S/P/Bld) [Vol rate/Area] 65 mL/min/{1.73_m2} Normal >=60 [facility] Comment on above: Result Comment: Repo rted eGFR is based on the CKD-EPI 2020 equation using creatinine, age, and sex. Performed By: #### M NATHANIEL BLOOM, HFP ####[facility] (DEFAULT)[address] [facility] [place] [address] Glucose [Mass/Vol] 94 mg/dL Normal 70-99 [facility] Comment on above: Performed By: #### M NATHANIEL BLOOM, HFP ####[facility] (DEFAULT)[address] [facility] [place] [address] Osmolality [Osmolality] 296 mosm/kg Normal 278-305 [facility] Comment on above: Performed By: #### M NATHANILE BLOOM, HFP ####[facility] (DEFAULT)[address] [facility] [place] [address] Potassium [Moles/Vol] 3.8 mmol/L Normal 3.5-5.0 [facility] Comment on above: Performed By: #### M NATHANIEL BLOOM, HFP ####[facility] (DEFAULT)[address] [place] [address] Sodium [Moles/Vol] 140 mmol/L Normal 135-145 [facility] Comment on above: Performed By: #### M NATHANIEL BLOOM, HFP ####[facility] (DEFAULT)[address] [facility] [place] [address] Urea nitrogen [Mass/Vol] 23 mg/dL Normal 7-25 [facility] Comment on above: Performed By: #### NATHANIEL RAMÍREZ, HFP ####[facility] (DEFAULT)[address] [facility] [place] [address] Urea nitrogen/Creatinine [Mass ratio] 17 mg/mg Normal [facility] Comment on above: Performed By: #### M NATHANIEL BLOOM, HFP ####[facility] (DEFAULT)[address] [facility] [place] [address] GLUCOSE POCon 01-23-2024 Glucose [Mass/Vol] 88 mg/dL 70 - 99 mg/dL [facility] POC Sample Type [facility] Test performed at ad dress of the patient encounter. [facility] Glucose [Mass/Vol] 191 mg/dL High 70 - 99 mg/dL [facility] Interpretation and review of laboratory results Abnormal [facility] POC Sample Type [facility] Test performed at ad dress of the patient encounter. [facility] HEPATIC FUNCTION PANELon Albumin [Mass/Vol] 3.9 g/dL 3.5 - 5.0 g/dL [facility] ALP [Catalytic activity/Vol] 83 U/L 32 - 126 U/L [facility] ALT [Catalytic activity/Vol] 9 U/L Low 10 - 52 U/L [facility] AST [Catalytic activity/Vol] 17 U/L 10 - 39 U/L [facility] Bilirubin [Mass/Vol] 1.6 mg/dL High NINF - 1.5 mg/dL [facility] Bilirubin.direct [Mass/Vol] 0.4 mg/dL High NINF - 0.3 mg/dL [facility] Protein [Mass/Vol] 6.6 g/dL 6.4 - 8.3 g/dL [facility] Albumin [Mass/Vol] 3.9 g/dL Normal 3.5-5.0 [facility] Comment on above: Performed By: #### M MERLE CHM7, HFP ####[facility] (DEFAULT)[address] [place] [address] ALP [Catalytic activity/Vol] 83 U/L Normal 32-126 [facility] Comment on above: Performed By: #### M MERLE CHM7, HFP ####[facility] (DEFAULT)[address] [place] [address] ALT [Catalytic activity/Vol] 9 U/L Low 10-52 [facility] Comment on above: Performed By: #### M MERLE CHM7, HFP ####[facility] (DEFAULT)[address] [place] [address] AST [Catalytic activity/Vol] 17 U/L Normal 10-39 [facility] Comment on above: Performed By: #### M MERLE CHM7, HFP ####[facility] (DEFAULT)[address] [place] [address] Bilirubin [Mass/Vol] 1.6 mg/dL High <1.5 [facility] Comment on above: Performed By: #### M GO CHM7, HFP ####[facility] (DEFAULT)[address] [place] [address] Bilirubin.indirect [Mass/Vol] 0.4 mg/dL High <0.3 [facility] Comment on above: Performed By: #### M GO CHM7, HFP ####[facility] (DEFAULT)[address] [place] [address] Protein [Mass/Vol] 6.6 g/dL Normal 6.4-8.3 [facility] Comment on above: Performed By: #### M GO, CHM7, HFP ####[facility] (DEFAULT)[address] [place] [address] ITRACONAZOLE LEVELon 024 Hydroxyitraconazole [Mass/Vol] 7.6 mcg/mL [facility] Comment on above: REFERENCE VALUE No therapeutic range established; activity and serum concentration are similar to parent drug. ADDITIONAL INFORMATION This test was developed and its performance characteristics determined by [facility] in a manner consistent with CLIA requirements. This test has not been cleared or approved by the U.S. Food and Drug Administration. Test Performed by: [facility] - [address] [address] Geneticist: Rosendo Bose M.D. Ph.D.; CLIA# [id number] Itraconazole [Mass/Vol] 6.0 mcg/mL [facility] Comment on above: REFERENCE VALUE >0.5 (localized infection), >1.0 (systemic infection) [facility] MAGNESIUMon 01-23-2024 Interpretation and review of laboratory results Normal [facility] Magnesium [Mass/Vol] 1.8 mg/dL 1.6 - 2 .6 mg/dL [facility] Magnesium [Mass/Vol] 1.8 mg/dL Normal 1.6-2.6 [facility] Comment on above: Performed By: #### M HELEN BLOOMM7, HFP ####[facility] (DEFAULT)[address] [place] [address] No Panel Informationon 01-23 Interpretation and review of laboratory results Abnormal [facility] TACROLIMUS LEVEL, TROUGH ([place] E DRUG LEVEL)on 01-23-2024 Interpretation and review of laboratory results Normal [facility] Tacrolimus (Bld) [Mass/Vol] 7.0 ng/mL Bone Marrow Transplant: 4.0-12.0, Therapeutic: 5.0-15.0 [facility] Method performed is a chemiluminescent microparticle immunoasssay on the [employer] i2000. The range is based on experience at [facility] and users should be aware that target concentrations vary widely depending on concomitant therapy, time post-transplant, and desired degree of immunosuppression. [facility] Tacrolimus, Trough 7.0 ng/mL Normal Bone Susana ow Transplant: 4.0-12.0, Therapeutic: 5.0-15.0 [facility] Comment on above: Order Comment: Pleas e draw at specified interval PRIOR to dose. Do not hold dose to wait for level. Specimens batched twice per day, (M-F) and once per day weekendsMethod performed is a chemiluminescent microparticle immunoasssay on the [employer] i2000.The range is based on experience at [facility] and users should be aware that target concentrations vary widely depending on concomitant therapy, time post-transplant, and desired degree of immunosuppression. Performed By: #### T ACRO ####[facility] (DEFAULT)[address] [place] [address] CARDIAC RHYTHM (SCANNED)on 0 01-22-2024 [facility] CBC,PLATELETSon 01-22-2024 Erythrocyte distribution width (RBC) [Ratio] 14.1 % 10.9 - 14.3 % [facility] Hematocrit (Bld) [Volume fraction] 41.5 % 39.6 - 48.8 % [facility] Hemoglobin (Bld) [Mass/Vol] 13.3 g/dL Low 13.4 - 16.8 g/dL [facility] Interpretation and review of laboratory results Abnormal [facility] MCH (RBC) [Entitic mass] 27.8 pg 26.1 - 33.3 pg [facility] MCHC (RBC) [Mass/Vol] 32.0 g/dL 31.9 - 36.5 g/dL [facility] MCV (RBC) [Entitic vol] 86.8 fL 79.0 - 94.5 fL [facility] Platelet mean volume (Bld) [Entitic vol] 10.5 fL 8.7 - 12.3 fL [facility] Platelets (Bld) [#/Vol] 186 10*3/uL 146 - 337 K/uL [facility] RBC (Bld) [#/Vol] 4.78 10*6/uL [facility] WBC (Bld) [#/Vol] 3.74 10*3/uL 3.73 - 10. 10 K/uL [facility] Hematocrit (Bld) [Volume fraction] 41.5 % Normal 39.6-48.8 [facility] Comment on above: Performed By: #### H [facility] ####[facility] (DEFAULT)[address] [facility] [place] [address] Hemoglobin (Bld) [Mass/Vol] 13.3 g/dL Low 13.4-16.8 [facility] Comment on above: Performed By: #### H EMO ####[facility] (DEFAULT)[address] [facility] [place] [address] MCV (RBC) [Entitic vol] 86.8 fL Normal 79.0-94.5 [facility] Comment on above: Performed By: #### H EMO ####[facility] (DEFAULT)[address] [facility] [place] [address] Mean Cell Hgb 27.8 pg Normal 26.1-33.3 [facility] Comment on above: Performed By: #### H EMOGC ####[facility] (DEFAULT)[address] [facility] [place] [address] Mean Cell Hgb Conc 32.0 g/dL Normal 31.9-36.5 [facility] Comment on above: Performed By: #### H EMOGC ####[facility] (DEFAULT)[address] [facility] [place] [address] Platelet mean volume (Bld) [Entitic vol] 10.5 fL Normal 8.7-12.3 [facility] Comment on above: Performed By: #### H [facility] ####[facility] (DEFAULT)[address] [facility] [place] [address] Platelets (Bld) [#/Vol] 186 10*3/uL Normal 146-337 [facility] Comment on above: Performed By: #### H [facility] ####[facility] (DEFAULT)[address] [place] [address] RBC (Bld) [#/Vol] 4.78 10*6/uL Normal 4.38-5.83 [facility] Comment on above: Performed By: #### H [facility] ####[facility] (DEFAULT)[address] [facility] [place] [address] RBC Distribution 14.1 % Normal 10.9-14.3 [facility] Comment on above: Performed By: #### H [facility] ####[facility] (DEFAULT)[address] [place] [address] WBC (Bld) [#/Vol] 3.74 10*3/uL Normal 3.73-10.10 [facility] Comment on above: Performed By: #### H [facility] ####[facility] (DEFAULT)[address] [place] [address] CHEM 7 (LYTES,BUN,CREA,GLUC) on 01-22-2024 Anion gap [Moles/Vol] 13 mmol/L 7 - 17 mmol/L [facility] Chloride [Moles/Vol] 109 mmol/L High 98 - 10 8 mmol/L [facility] CO2 [Moles/Vol] 23 mmol/L 21 - 31 mmol/L [facility] Creatinine [Mass/Vol] 1.10 mg/dL 0.70 - 1.30 mg/dL [facility] eGFR, CKD-EPI, Male 81 - PINF [facility] Comment on above: Reported eGFR is bas ed on the CKD-EPI 2021 equation using creatinine, age, and sex. Glucose [Mass/Vol] 84 mg/dL 70 - 99 mg/dL [facility] Interpretation and review of laboratory results Abnormal [facility] Osmolality Calc [Osmolality] 295 [facility] Potassium [Moles/Vol] 4.0 mmol/L 3.5 - 5.0 mmol/L [facility] Sodium [Moles/Vol] 141 mmol/L 135 - 145 mmol/L [facility] Urea nitrogen [Mass/Vol] 16 mg/dL 7 - 25 mg/dL [facility] Urea nitrogen/Creatinine [Mass ratio] 15 mg/mg [facility] Anion gap [Moles/Vol] 13 mmol/L Normal 7-17 [facility] Comment on above: Performed By: #### Rod BLOOM CHM7 ####[facility] (DEFAULT)[address] [place] [address] Chloride [Moles/Vol] 109 mmol/L High 98-108 [facility] Comment on above: Performed By: #### Rod BLOOM CHM7 ####[facility] (DEFAULT)[address] [place] [address] CO2 [Moles/Vol] 23 mmol/L Normal 21-31 [facility] Comment on above: Performed By: #### Rod BLOOM CHM7 ####[facility] (DEFAULT)[address] [place] [address] Creatinine [Mass/Vol] 1.10 mg/dL Normal 0.70-1.30 [facility] Comment on above: Performed By: #### Rod BLOOM CHM7 ####[facility] (DEFAULT)[address] [place] [address] GFR/1.73 sq M.predicted among non-blacks MDRD (S/P/Bld) [Vol rate/Area] 81 mL/min/{1.73_m2} Normal >=60 [facility] Comment on above: Result Comment: Repo rted eGFR is based on the CKD-EPI 2021 equation using creatinine, age, and sex. Performed By: #### NATHANIEL RAMÍREZ ####[facility] (DEFAULT)[address] [place] [address] Glucose [Mass/Vol] 84 mg/dL Normal 70-99 [facility] Comment on above: Performed By: #### TJ RAMÍREZ7 ####[facility] (DEFAULT)[address] [place] [address] Osmolality [Osmolality] 295 mosm/kg Normal 278-305 [facility] Comment on above: Performed By: #### TJ RAMÍREZ7 ####[facility] (DEFAULT)[address] [place] [address] Potassium [Moles/Vol] 4.0 mmol/L Normal 3.5-5.0 [facility] Comment on above: Performed By: #### NATHANIEL RAMÍREZ ####[facility] (DEFAULT)[address] [place] [address] Sodium [Moles/Vol] 141 mmol/L Normal 135-145 [facility] Comment on above: Performed By: #### TJ RAMÍREZ7 ####[facility] (DEFAULT)[address] [place] [address] Urea nitrogen [Mass/Vol] 16 mg/dL Normal 7-25 [facility] Comment on above: Performed By: #### TJ RAMÍREZ7 ####[facility] (DEFAULT)[address] [facility] [place] [address] Urea nitrogen/Creatinine [Mass ratio] 15 mg/mg Normal [facility] Comment on above: Performed By: #### NATHANIEL RAMÍREZ ####[facility] (DEFAULT)[address] [facility] [place] [address] MAGNESIUMon 01-22-2024 Interpretation and review of laboratory results Normal [facility] Magnesium [Mass/Vol] 2.0 mg/dL 1.6 - 2 .6 mg/dL [facility] Magnesium [Mass/Vol] 2.0 mg/dL Normal 1.6-2.6 [facility] Comment on above: Performed By: #### M [facility] ####[facility] (DEFAULT)[address] [place] [id number] No Panel Informationon 01-22 [facility] PT,INR,PTTon 01-22-2024 aPTT Coag (PPP) [Time] 29.2 s [facility] INR Coag (Bld) [Relative time] 1.1 {INR} 0.9 - 1.1 [facility] Interpretation and review of laboratory results Abnormal [facility] PT Coag (PPP) [Time] 14.3 s High [facility] aPTT Coag (Bld) [Time] 29.2 s Normal 24.0-34.3 [facility] Comment on above: Performed By: #### P TPTT ####[facility] (DEFAULT)[address] [place] [address] INR Coag (PPP) [Relative time] 1.1 {INR} Normal 0.9-1.1 [facility] Comment on above: Performed By: #### P TPTT ####[facility] (DEFAULT)[address] [place] [address] PT Coag (PPP) [Time] 14.3 s High 11.9-14.2 [facility] Comment on above: Performed By: #### P TPTT ####[facility] (DEFAULT)[address] [place] [address] TACROLIMUS LEVEL, TROUGH ([place] E DRUG LEVEL)Ordered By: Sheree Jensen on 01-22-2024 Interpretation and review of laboratory results Normal [facility] Tacrolimus (Bld) [Mass/Vol] 7.9 ng/mL Bone Marrow Transplant: 4.0-12.0, Therapeutic: 5.0-15.0 [facility] Method performed is a chemiluminescent microparticle immunoasssay on the [employer] i2000. The range is based on experience at [facility] and users should be aware that target concentrations vary widely depending on concomitant therapy, time post-transplant, and desired degree of immunosuppression. [facility] TACROLIMUS LEVEL, TROUGH ([place] E DRUG LEVEL)on 01-22-2024 Tacrolimus, Trough 7.9 ng/mL Normal Bone Susana ow Transplant: 4.0-12.0, Therapeutic: 5.0-15.0 [facility] Comment on above: Order Comment: Pleas e draw at specified interval PRIOR to dose. Do not hold dose to wait for level. Specimens batched twice per day, (M-F) and once per day weekendsMethod performed is a chemiluminescent microparticle immunoasssay on the [employer] i2000.The range is based on experience at [facility] and users should be aware that target concentrations vary widely depending on concomitant therapy, time post-transplant, and desired degree of immunosuppression. Performed By: #### T ACRO ####[facility] (DEFAULT)[address] [place] [address] TYPE AND SCREENon 01-22-2024 ABO/RH(D) TYPE Positive [facility] ABO/RH(D) TYPE Positive Normal [facility] Comment on above: Performed By: #### X M ####[facility] (DEFAULT)[address] [place] [address] [place] Unspecified body regionOr dered By: Unassigned Pacs on 01-22-2024 [facility] Work Phone: [place] Unspecified body regionon 01-22-2024 Radiology Study observation (narrative) [facility] CBC,PLATELETSon 01-21-2024 Erythrocyte distribution width (RBC) [Ratio] 14.0 % 10.9 - 14.3 % [facility] Hematocrit (Bld) [Volume fraction] 39.4 % Low 39.6 - 48.8 % [facility] Hemoglobin (Bld) [Mass/Vol] 12.7 g/dL Low 13.4 - 16.8 g/dL [facility] Interpretation and review of laboratory results Abnormal [facility] MCH (RBC) [Entitic mass] 28.0 pg 26.1 - 33.3 pg [facility] MCHC (RBC) [Mass/Vol] 32.2 g/dL 31.9 - 36.5 g/dL [facility] MCV (RBC) [Entitic vol] 87.0 fL 79.0 - 94.5 fL [facility] Platelet mean volume (Bld) [Entitic vol] 10.2 fL 8.7 - 12.3 fL [facility] Platelets (Bld) [#/Vol] 157 10*3/uL 146 - 337 K/uL [facility] RBC (Bld) [#/Vol] 4.53 10*6/uL [facility] WBC (Bld) [#/Vol] 3.42 10*3/uL Low 3.73 - 10. 10 K/uL [facility] Hematocrit (Bld) [Volume fraction] 39.4 % Low 39.6-48.8 [facility] Comment on above: Performed By: #### H [facility] ####[facility] (DEFAULT)[address] [place] [address] Hemoglobin (Bld) [Mass/Vol] 12.7 g/dL Low 13.4-16.8 [facility] Comment on above: Performed By: #### H [facility] ####[facility] (DEFAULT)[address] [place] [address] MCV (RBC) [Entitic vol] 87.0 fL Normal 79.0-94.5 [facility] Comment on above: Performed By: #### H [facility] ####[facility] (DEFAULT)[address] [place] [address] Mean Cell Hgb 28.0 pg Normal 26.1-33.3 [facility] Comment on above: Performed By: #### H [facility] ####[facility] (DEFAULT)[address] [facility] [place] [address] Mean Cell Hgb Conc 32.2 g/dL Normal 31.9-36.5 [facility] Comment on above: Performed By: #### H EMOGC ####[facility] (DEFAULT)[address] [facility] [place] [address] Platelet mean volume (Bld) [Entitic vol] 10.2 fL Normal 8.7-12.3 [facility] Comment on above: Performed By: #### H EMOGC ####[facility] (DEFAULT)[address] [facility] [place] [address] Platelets (Bld) [#/Vol] 157 10*3/uL Normal 146-337 [facility] Comment on above: Performed By: #### H EMOGC ####[facility] (DEFAULT)[address] [facility] [place] [address] RBC (Bld) [#/Vol] 4.53 10*6/uL Normal 4.38-5.83 [facility] Comment on above: Performed By: #### H EMOGC ####[facility] (DEFAULT)[address] [facility] [place] [address] RBC Distribution 14.0 % Normal 10.9-14.3 [facility] Comment on above: Performed By: #### H EMOGC ####[facility] (DEFAULT)[address] [facility] [place] [address] WBC (Bld) [#/Vol] 3.42 10*3/uL Low 3.73-10.10 [facility] Comment on above: Performed By: #### H EMOGC ####[facility] (DEFAULT)[address] [place] [address] CHEM 7 (LYTES,BUN,CREA,GLUC) on 01-21-2024 Anion gap [Moles/Vol] 12 mmol/L 7 - 17 mmol/L [facility] Chloride [Moles/Vol] 107 mmol/L 98 - 10 8 mmol/L [facility] CO2 [Moles/Vol] 26 mmol/L 21 - 31 mmol/L [facility] Creatinine [Mass/Vol] 1.11 mg/dL 0.70 - 1.30 mg/dL [facility] eGFR, CKD-EPI, Male 80 - PINF [facility] Comment on above: Reported eGFR is bas ed on the CKD-EPI 2020 equation using creatinine, age, and sex. Glucose [Mass/Vol] 93 mg/dL 70 - 99 mg/dL [facility] Osmolality Calc [Osmolality] 295 [facility] Potassium [Moles/Vol] 3.9 mmol/L 3.5 - 5.0 mmol/L [facility] Sodium [Moles/Vol] 141 mmol/L 135 - 145 mmol/L [facility] Urea nitrogen [Mass/Vol] 15 mg/dL 7 - 25 mg/dL [facility] Urea nitrogen/Creatinine [Mass ratio] 14 mg/mg [facility] Anion gap [Moles/Vol] 12 mmol/L Normal 7-17 [facility] Comment on above: Performed By: #### NATHANIEL RAMÍREZ ####[facility] (DEFAULT)[address] [place] [address] Chloride [Moles/Vol] 107 mmol/L Normal 98-108 [facility] Comment on above: Performed By: ###NATHANIEL HERNANDEZ ####[facility] (DEFAULT)[address] [place] [address] CO2 [Moles/Vol] 26 mmol/L Normal 21-31 [facility] Comment on above: Performed By: #### NATHANIEL RAMÍREZ ####[facility] (DEFAULT)[address] [place] [address] Creatinine [Mass/Vol] 1.11 mg/dL Normal 0.70-1.30 [facility] Comment on above: Performed By: #### NATHANIEL RAMÍREZ ####[facility] (DEFAULT)[address] [place] [address] GFR/1.73 sq M.predicted among non-blacks MDRD (S/P/Bld) [Vol rate/Area] 80 mL/min/{1.73_m2} Normal >=60 [facility] Comment on above: Result Comment: Repo rted eGFR is based on the CKD-EPI 2020 equation using creatinine, age, and sex. Performed By: #### Rod BLOOM CHM7 ####[facility] (DEFAULT)[address] [place] [address] Glucose [Mass/Vol] 93 mg/dL Normal 70-99 [facility] Comment on above: Performed By: #### Rod BLOOM CHM7 ####[facility] (DEFAULT)[address] [place] [address] Osmolality [Osmolality] 295 mosm/kg Normal 278-305 [facility] Comment on above: Performed By: #### Rod BLOOM CHM7 ####[facility] (DEFAULT)[address] [place] [address] Potassium [Moles/Vol] 3.9 mmol/L Normal 3.5-5.0 [facility] Comment on above: Performed By: #### Rod BLOOM CHM7 ####[facility] (DEFAULT)[address] [place] [address] Sodium [Moles/Vol] 141 mmol/L Normal 135-145 [facility] Comment on above: Performed By: #### Rod BLOOM CHM7 ####[facility] (DEFAULT)[address] [place] [address] Urea nitrogen [Mass/Vol] 15 mg/dL Normal 7-25 [facility] Comment on above: Performed By: #### Rod BLOOM CHM7 ####[facility] (DEFAULT)[address] [place] [address] Urea nitrogen/Creatinine [Mass ratio] 14 mg/mg Normal [facility] Comment on above: Performed By: #### M [facility] ####[facility] (DEFAULT)[address] [place] [address] Cardiac catheterization stud yOrdered By: Kelvin Donohue on 01-21-2024 Body surface area Derived from formula 2.08 m2 [facility] Work Phone: [facility] Work Phone: Cardiac catheterization stud yon 01-21-2024 [...] with fistula occlusion Kelvin Donohue MD, MPH [employer]. Section of Advanced Heart Failure and Transplantation Division of Cardiovascular Diseases [facility] [email or web address] INVASIVE CARDIOVASCULAR PROC EDUREon 01-21-2024 INVASIVE CARDIOVASCULAR PROCEDURE Normal [facility] MAGNESIUMon 01-21-2024 Interpretation and review of laboratory results Abnormal [facility] Magnesium [Mass/Vol] 1.5 mg/dL Low 1.6 - 2 .6 mg/dL [facility] Magnesium [Mass/Vol] 1.5 mg/dL Low 1.6-2.6 [facility] Comment on above: Performed By: #### M [facility] ####[facility] (DEFAULT)[address] [place] [phone] No Panel Informationon 01-21 [facility] TACROLIMUS LEVEL, TROUGH ([place] E DRUG LEVEL)on 01-21-2024 Interpretation and review of laboratory results Normal [facility] Tacrolimus (Bld) [Mass/Vol] 7.2 ng/mL Bone Marrow Transplant: 4.0-12.0, Therapeutic: 5.0-15.0 [facility] Method performed is a chemiluminescent microparticle immunoasssay on the [employer] i2000. The range is based on experience at [facility] and users should be aware that target concentrations vary widely depending on concomitant therapy, time post-transplant, and desired degree of immunosuppression. [facility] Tacrolimus, Trough 7.2 ng/mL Normal Bone Susana ow Transplant: 4.0-12.0, Therapeutic: 5.0-15.0 [facility] Comment on above: Order Comment: Pleas e draw at specified interval PRIOR to dose. Do not hold dose to wait for level. Specimens batched twice per day, (M-F) and once per day weekendsMethod performed is a chemiluminescent microparticle immunoasssay on the [employer] i2000.The range is based on experience at [facility] and users should be aware that target concentrations vary widely depending on concomitant therapy, time post-transplant, and desired degree of immunosuppression. Performed By: #### T ACRO ####[facility] (DEFAULT)[address] [place] [address] CBC,PLATELETSon 01-20-2024 Erythrocyte distribution width (RBC) [Ratio] 13.8 % 10.9 - 14.3 % [facility] Hematocrit (Bld) [Volume fraction] 38.9 % Low 39.6 - 48.8 % [facility] Hemoglobin (Bld) [Mass/Vol] 12.5 g/dL Low 13.4 - 16.8 g/dL [facility] Interpretation and review of laboratory results Abnormal [facility] MCH (RBC) [Entitic mass] 28.0 pg 26.1 - 33.3 pg [facility] MCHC (RBC) [Mass/Vol] 32.1 g/dL 31.9 - 36.5 g/dL [facility] MCV (RBC) [Entitic vol] 87.2 fL 79.0 - 94.5 fL [facility] Platelet mean volume (Bld) [Entitic vol] 10.2 fL 8.7 - 12.3 fL [facility] Platelets (Bld) [#/Vol] 166 10*3/uL 146 - 337 K/uL [facility] RBC (Bld) [#/Vol] 4.46 10*6/uL [facility] WBC (Bld) [#/Vol] 3.79 10*3/uL 3.73 - 10. 10 K/uL [facility] Hematocrit (Bld) [Volume fraction] 38.9 % Low 39.6-48.8 [facility] Comment on above: Performed By: #### H [facility] ####[facility] (DEFAULT)[address] [place] [address] Hemoglobin (Bld) [Mass/Vol] 12.5 g/dL Low 13.4-16.8 [facility] Comment on above: Performed By: #### H EMO ####[facility] (DEFAULT)[address] [place] [address] MCV (RBC) [Entitic vol] 87.2 fL Normal 79.0-94.5 [facility] Comment on above: Performed By: #### H EMO ####[facility] (DEFAULT)[address] [place] [address] Mean Cell Hgb 28.0 pg Normal 26.1-33.3 [facility] Comment on above: Performed By: #### H EMO ####[facility] (DEFAULT)[address] [place] [address] Mean Cell Hgb Conc 32.1 g/dL Normal 31.9-36.5 [facility] Comment on above: Performed By: #### H EMO ####[facility] (DEFAULT)[address] [facility] [place] [address] Platelet mean volume (Bld) [Entitic vol] 10.2 fL Normal 8.7-12.3 [facility] Comment on above: Performed By: #### H EMO ####[facility] (DEFAULT)[address] [facility] [place] [address] Platelets (Bld) [#/Vol] 166 10*3/uL Normal 146-337 [facility] Comment on above: Performed By: #### H EMO ####[facility] (DEFAULT)[address] [facility] [place] [address] RBC (Bld) [#/Vol] 4.46 10*6/uL Normal 4.38-5.83 [facility] Comment on above: Performed By: #### H EMO ####[facility] (DEFAULT)[address] [facility] [place] [address] RBC Distribution 13.8 % Normal 10.9-14.3 [facility] Comment on above: Performed By: #### H EMO ####[facility] (DEFAULT)[address] [facility] [place] [address] WBC (Bld) [#/Vol] 3.79 10*3/uL Normal 3.73-10.10 [facility] Comment on above: Performed By: #### H EMO ####[facility] (DEFAULT)[address] [place] [address] CHEM 7 (LYTES,BUN,CREA,GLUC) on 01-20-2024 Anion gap [Moles/Vol] 12 mmol/L 7 - 17 mmol/L [facility] Chloride [Moles/Vol] 105 mmol/L 98 - 10 8 mmol/L [facility] CO2 [Moles/Vol] 28 mmol/L 21 - 31 mmol/L [facility] Creatinine [Mass/Vol] 1.12 mg/dL 0.70 - 1.30 mg/dL [facility] eGFR, CKD-EPI, Male 79 - PINF [facility] Comment on above: Reported eGFR is bas ed on the CKD-EPI 2020 equation using creatinine, age, and sex. Glucose [Mass/Vol] 88 mg/dL 70 - 99 mg/dL [facility] Osmolality Calc [Osmolality] 294 [facility] Potassium [Moles/Vol] 3.8 mmol/L 3.5 - 5.0 mmol/L [facility] Sodium [Moles/Vol] 141 mmol/L 135 - 145 mmol/L [facility] Urea nitrogen [Mass/Vol] 15 mg/dL 7 - 25 mg/dL [facility] Urea nitrogen/Creatinine [Mass ratio] 13 mg/mg [facility] Anion gap [Moles/Vol] 12 mmol/L Normal 7-17 [facility] Comment on above: Performed By: #### TAVO RAMÍREZ, CHM7 ####[facility] (DEFAULT)[address] [place] [address] Chloride [Moles/Vol] 105 mmol/L Normal 98-108 [facility] Comment on above: Performed By: #### TAVO RAMÍREZ, CHM7 ####[facility] (DEFAULT)[address] [facility] [place] [address] CO2 [Moles/Vol] 28 mmol/L Normal 21-31 [facility] Comment on above: Performed By: #### TAVO RAMÍREZ, CHM7 ####[facility] (DEFAULT)[address] [place] [address] Creatinine [Mass/Vol] 1.12 mg/dL Normal 0.70-1.30 [facility] Comment on above: Performed By: #### TAVO RAMÍREZ, CHM7 ####[facility] (DEFAULT)[address] [place] [address] GFR/1.73 sq M.predicted among non-blacks MDRD (S/P/Bld) [Vol rate/Area] 79 mL/min/{1.73_m2} Normal >=60 [facility] Comment on above: Result Comment: Repo rted eGFR is based on the CKD-EPI 2020 equation using creatinine, age, and sex. Performed By: #### TAVO RAMÍREZ, CHM7 ####[facility] (DEFAULT)[address] [place] [address] Glucose [Mass/Vol] 88 mg/dL Normal 70-99 [facility] Comment on above: Performed By: #### TAVO RAMÍREZ, CHM7 ####[facility] (DEFAULT)[address] [place] [address] Osmolality [Osmolality] 294 mosm/kg Normal 278-305 [facility] Comment on above: Performed By: #### TAVO RAMÍREZ, CHM7 ####[facility] (DEFAULT)[address] [facility] [place] [address] Potassium [Moles/Vol] 3.8 mmol/L Normal 3.5-5.0 [facility] Comment on above: Performed By: #### TAVO RAMÍREZ, CHM7 ####[facility] (DEFAULT)[address] [place] [address] Sodium [Moles/Vol] 141 mmol/L Normal 135-145 [facility] Comment on above: Performed By: #### TAVO RAMÍREZ, CHM7 ####[facility] (DEFAULT)[address] [facility] [place] [address] Urea nitrogen [Mass/Vol] 15 mg/dL Normal 7-25 [facility] Comment on above: Performed By: #### TAVO RAMÍREZ, CHM7 ####[facility] (DEFAULT)[address] [place] [address] Urea nitrogen/Creatinine [Mass ratio] 13 mg/mg Normal [facility] Comment on above: Performed By: #### M , [facility], CHM7 ####[facility] (DEFAULT)[address] [place] [address] Cardiac catheterization stud yon 01-20-2024 [facility] Radiology Study observation (narrative) [facility] Radiology Study observation (narrative) [facility] EBV BY PCR, QUANTITATIVE,BLO ODOrdered By: Charlotte Jensen on 01-20-2024 EBV DNA ESTELITA+probe (Unsp spec) [#/Vol] NINF [facility] Interpretation and review of laboratory results Normal [facility] This test was perfor med using a real time PCR assay. The dynamic range for this assay is 1000-5,000,000 IU/mL. A result <1000 IU/mL does not rule out the presence of EBV DNA in quantities below the sensitivity of this assay. This test was developed and its performance characteristics determined by The [facility] at [facility]. It has not been cleared or approved by the FDA. The laboratory is regulated under CLIA as qualified to perform high-complexity testing. This test is used for clinical purposes. It should not be regarded as investigational or for research. [facility] HEPATIC FUNCTION PANELon Albumin [Mass/Vol] 3.7 g/dL 3.5 - 5.0 g/dL [facility] ALP [Catalytic activity/Vol] 73 U/L 32 - 126 U/L [facility] ALT [Catalytic activity/Vol] 12 U/L 10 - 52 U/L [facility] AST [Catalytic activity/Vol] 19 U/L 10 - 39 U/L [facility] Bilirubin [Mass/Vol] 2.1 mg/dL High NINF - 1.5 mg/dL [facility] Bilirubin.direct [Mass/Vol] 0.5 mg/dL High NINF - 0.3 mg/dL [facility] Interpretation and review of laboratory results Abnormal [facility] Protein [Mass/Vol] 6.1 g/dL Low 6.4 - 8.3 g/dL [facility] Albumin [Mass/Vol] 3.7 g/dL Normal 3.5-5.0 [facility] Comment on above: Performed By: #### M GO, HFP, CHM7 ####[facility] (DEFAULT)[address] [place] [address] ALP [Catalytic activity/Vol] 73 U/L Normal 32-126 [facility] Comment on above: Performed By: #### M GO, HFP, CHM7 ####[facility] (DEFAULT)[address] [place] [address] ALT [Catalytic activity/Vol] 12 U/L Normal 10-52 [facility] Comment on above: Performed By: #### M GO, HFP, CHM7 ####[facility] (DEFAULT)[address] [place] [address] AST [Catalytic activity/Vol] 19 U/L Normal 10-39 [facility] Comment on above: Performed By: #### M GO, HFP, CHM7 ####[facility] (DEFAULT)[address] [place] [address] Bilirubin [Mass/Vol] 2.1 mg/dL High <1.5 [facility] Comment on above: Performed By: #### M GO, HFP, CHM7 ####[facility] (DEFAULT)[address] [place] [address] Bilirubin.indirect [Mass/Vol] 0.5 mg/dL High <0.3 [facility] Comment on above: Performed By: #### M GO, HFP, CHM7 ####[facility] (DEFAULT)[address] [place] [address] Protein [Mass/Vol] 6.1 g/dL Low 6.4-8.3 [facility] Comment on above: Performed By: #### M GO, HFP, CHM7 ####[facility] (DEFAULT)[address] [place] [address] ITRACONAZOLE LEVELon 024 Hydroxyitraconazole 7.6 mcg/mL Normal [facility] Comment on above: Order Comment: Pleas e draw level at specified interval PRIOR to dose. Result Comment: ---- REFERENCE VALUE No therapeutic range established; activity and serumconcentration are similar to parent drug. ADDITIONAL INFORMATION This test was developed and its performance characteristicsdetermined by [facility] in a manner consistent with CLIArequirements. This test has not been cleared or approved bythe U.S. Food and Drug Administration.Test Performed by:[address] Director: Rosendo Bose M.D. Ph.D.; CLIA# [id number] Performed By: #### Y ITCON ####[facility] (DEFAULT)[address] [place] [address] Itraconazole 6.0 mcg/mL Normal [facility] Comment on above: Order Comment: Pleas e draw level at specified interval PRIOR to dose. Result Comment: ---- REFERENCE VALUE-------------------------->0.5 (localized infection), >1.0 (systemic infection) Performed By: #### Y ITCON ####[facility] (DEFAULT)[address] [place] [address] MAGNESIUMon 01-20-2024 Interpretation and review of laboratory results Normal [facility] Magnesium [Mass/Vol] 1.6 mg/dL 1.6 - 2 .6 mg/dL [facility] Magnesium [Mass/Vol] 1.6 mg/dL Normal 1.6-2.6 [facility] Comment on above: Performed By: #### M MERLE, [facility], CHM7 ####[facility] (DEFAULT)[address] [place] [address] No Panel Informationon 01-20 [facility] POCT CO-OXIMETRYon Hemoglobin (Bld) [Mass/Vol] 12.8 g/dL Low 13.4 - 16.8 g/dL [facility] Interpretation and review of laboratory results Abnormal [facility] Oxyhemoglobin 69 % Low 94 - 98 % [facility] Ordering physician notified. Test performed at address of the patient encounter. [facility] Hemoglobin (Bld) [Mass/Vol] 13.3 g/dL Low 13.4 - 16.8 g/dL [facility] Interpretation and review of laboratory results Abnormal [facility] Oxyhemoglobin 69 % Low 94 - 98 % [facility] Ordering physician notified. Test performed at address of the patient encounter. [facility] PT,INR,PTTon 01-20-2024 aPTT Coag (PPP) [Time] 30.6 s [facility] INR Coag (Bld) [Relative time] 1.2 {INR} High 0.9 - 1.1 [facility] Interpretation and review of laboratory results Abnormal [facility] PT Coag (PPP) [Time] 15.5 s High [facility] aPTT Coag (Bld) [Time] 30.6 s Normal 24.0-34.3 [facility] Comment on above: Performed By: #### P TPTT ####[facility] (DEFAULT)[address] [place] [address] INR Coag (PPP) [Relative time] 1.2 {INR} High 0.9-1.1 [facility] Comment on above: Performed By: #### P TPTT ####[facility] (DEFAULT)[address] [facility] [place] [address] PT Coag (PPP) [Time] 15.5 s High 11.9-14.2 [facility] Comment on above: Performed By: #### P TPTT ####[facility] (DEFAULT)[address] [place] [address] TACROLIMUS LEVEL, TROUGH ([place] E DRUG LEVEL)Ordered By: Yanira Marcum on 01-20-2024 Interpretation and review of laboratory results Normal [facility] Tacrolimus (Bld) [Mass/Vol] 7.7 ng/mL Bone Marrow Transplant: 4.0-12.0, Therapeutic: 5.0-15.0 [facility] Method performed is a chemiluminescent microparticle immunoasssay on the [employer] i2000. The range is based on experience at [facility] and users should be aware that target concentrations vary widely depending on concomitant therapy, time post-transplant, and desired degree of immunosuppression. [facility] TACROLIMUS LEVEL, TROUGH ([place] E DRUG LEVEL)on 01-20-2024 Tacrolimus, Trough 7.7 ng/mL Normal Bone Susana ow Transplant: 4.0-12.0, Therapeutic: 5.0-15.0 [facility] Comment on above: Order Comment: Pleas e draw at specified interval PRIOR to dose. Do not hold dose to wait for level. Specimens batched twice per day, (M-) and once per day weekendsMethod performed is a chemiluminescent microparticle immunoasssay on the [employer] i2000.The range is based on experience at [facility] and users should be aware that target concentrations vary widely depending on concomitant therapy, time post-transplant, and desired degree of immunosuppression. Performed By: #### T ACRO ####[facility] (DEFAULT)[address] [place] [address] CBC,PLATELETSon 01-19-2024 Erythrocyte distribution width (RBC) [Ratio] 13.9 % 10.9 - 14.3 % [facility] Hematocrit (Bld) [Volume fraction] 37.5 % Low 39.6 - 48.8 % [facility] Hemoglobin (Bld) [Mass/Vol] 12.1 g/dL Low 13.4 - 16.8 g/dL [facility] Interpretation and review of laboratory results Abnormal [facility] MCH (RBC) [Entitic mass] 28.3 pg 26.1 - 33.3 pg [facility] MCHC (RBC) [Mass/Vol] 32.3 g/dL 31.9 - 36.5 g/dL [facility] MCV (RBC) [Entitic vol] 87.8 fL 79.0 - 94.5 fL [facility] Platelet mean volume (Bld) [Entitic vol] 10.4 fL 8.7 - 12.3 fL [facility] Platelets (Bld) [#/Vol] 163 10*3/uL 146 - 337 K/uL [facility] RBC (Bld) [#/Vol] 4.27 10*6/uL Low [facility] WBC (Bld) [#/Vol] 3.69 10*3/uL Low 3.73 - 10. 10 K/uL [facility] Hematocrit (Bld) [Volume fraction] 37.5 % Low 39.6-48.8 [facility] Comment on above: Performed By: #### H [facility] ####[facility] (DEFAULT)[address] [place] [address] Hemoglobin (Bld) [Mass/Vol] 12.1 g/dL Low 13.4-16.8 [facility] Comment on above: Performed By: #### H [facility] ####[facility] (DEFAULT)[address] [place] [address] MCV (RBC) [Entitic vol] 87.8 fL Normal 79.0-94.5 [facility] Comment on above: Performed By: #### H [facility] ####[facility] (DEFAULT)[address] [place] [address] Mean Cell Hgb 28.3 pg Normal 26.1-33.3 [facility] Comment on above: Performed By: #### H EMOGC ####[facility] (DEFAULT)[address] [facility] [place] [address] Mean Cell Hgb Conc 32.3 g/dL Normal 31.9-36.5 [facility] Comment on above: Performed By: #### H EMOGC ####[facility] (DEFAULT)[address] [facility] [place] [facility] [place] [address] Platelet mean volume (Bld) [Entitic vol] 10.4 fL Normal 8.7-12.3 [facility] Comment on above: Performed By: #### H EMOGC ####[facility] (DEFAULT)[address] [facility] [place] [address] Platelets (Bld) [#/Vol] 163 10*3/uL Normal 146-337 [facility] Comment on above: Performed By: #### H EMOGC ####[facility] (DEFAULT)[address] [facility] [place] [address] RBC (Bld) [#/Vol] 4.27 10*6/uL Low 4.38-5.83 [facility] Comment on above: Performed By: #### H EMOGC ####[facility] (DEFAULT)[address] [facility] [place] [address] RBC Distribution 13.9 % Normal 10.9-14.3 [facility] Comment on above: Performed By: #### H EMOGC ####[facility] (DEFAULT)[address] [facility] [place] [address] WBC (Bld) [#/Vol] 3.69 10*3/uL Low 3.73-10.10 [facility] Comment on above: Performed By: #### H EMOGC ####[facility] (DEFAULT)[address] [facility] [place] [address] CHEM 7 (LYTES,BUN,CREA,GLUC) on 01-19-2024 Anion gap [Moles/Vol] 14 mmol/L 7 - 17 mmol/L [facility] Chloride [Moles/Vol] 106 mmol/L 98 - 10 8 mmol/L [facility] CO2 [Moles/Vol] 24 mmol/L 21 - 31 mmol/L [facility] Creatinine [Mass/Vol] 1.13 mg/dL 0.70 - 1.30 mg/dL [facility] eGFR, CKD-EPI, Male 78 - PINF [facility] Comment on above: Reported eGFR is bas ed on the CKD-EPI 2020 equation using creatinine, age, and sex. Glucose [Mass/Vol] 86 mg/dL 70 - 99 mg/dL [facility] Osmolality Calc [Osmolality] 293 [facility] Potassium [Moles/Vol] 3.8 mmol/L 3.5 - 5.0 mmol/L [facility] Sodium [Moles/Vol] 140 mmol/L 135 - 145 mmol/L [facility] Urea nitrogen [Mass/Vol] 16 mg/dL 7 - 25 mg/dL [facility] Urea nitrogen/Creatinine [Mass ratio] 14 mg/mg [facility] Anion gap [Moles/Vol] 14 mmol/L Normal 7-17 [facility] Comment on above: Performed By: #### Rod BLOOM CHM7 ####[facility] (DEFAULT)[address] [place] [address] Chloride [Moles/Vol] 106 mmol/L Normal 98-108 [facility] Comment on above: Performed By: #### TJ RAMÍREZ7 ####[facility] (DEFAULT)[address] [place] [address] CO2 [Moles/Vol] 24 mmol/L Normal 21-31 [facility] Comment on above: Performed By: #### Rod BLOOM CHM7 ####[facility] (DEFAULT)[address] [place] [address] Creatinine [Mass/Vol] 1.13 mg/dL Normal 0.70-1.30 [facility] Comment on above: Performed By: #### Rod BLOOM CHM7 ####[facility] (DEFAULT)[address] [facility] [place] [address] GFR/1.73 sq M.predicted among non-blacks MDRD (S/P/Bld) [Vol rate/Area] 78 mL/min/{1.73_m2} Normal >=60 [facility] Comment on above: Result Comment: Repo rted eGFR is based on the CKD-EPI 2020 equation using creatinine, age, and sex. Performed By: #### TJ RAMÍREZ7 ####[facility] (DEFAULT)[address] [facility] [place] [address] Glucose [Mass/Vol] 86 mg/dL Normal 70-99 [facility] Comment on above: Performed By: #### TJ RAMÍREZ7 ####[facility] (DEFAULT)[address] [facility] [place] [address] Osmolality [Osmolality] 293 mosm/kg Normal 278-305 [facility] Comment on above: Performed By: #### Rod BLOOM CHM7 ####[facility] (DEFAULT)[address] [place], [place] [address], [place] [address] Potassium [Moles/Vol] 3.8 mmol/L Normal 3.5-5.0 [facility] Comment on above: Performed By: #### Rod BLOOM CHM7 ####[facility] (DEFAULT)[address] [place] [address] Sodium [Moles/Vol] 140 mmol/L Normal 135-145 [facility] Comment on above: Performed By: #### Rod BLOOM CHM7 ####[facility] (DEFAULT)[address] [facility] [place] [address] Urea nitrogen [Mass/Vol] 16 mg/dL Normal 7-25 [facility] Comment on above: Performed By: #### Rod BLOOM CHM7 ####[facility] (DEFAULT)[address] [place] [address] Urea nitrogen/Creatinine [Mass ratio] 14 mg/mg Normal [facility] Comment on above: Performed By: #### M HELEN BLOOM7 ####[facility] (DEFAULT)[address] [place] [address] EBV BY PCR, QUANTITATIVE,BLO ODon 01-19-2024 Ebv By Pcr, Quant, Blood <1000 Normal <1000 [facility] Comment on above: Order Comment: This test was performed using a real time PCR assay. The dynamic range for this assay is 1000-5,000,000 IU/mL. A result <1000 IU/mL does not rule out the presence of EBV DNA in quantities below the sensitivity of this assay. This test was developed and its performance characteristics determined by The [facility] at [facility]. It has not been cleared or approved by the FDA. The laboratory is regulated under CLIA as qualified to perform high-complexity testing. This test is used for clinical purposes. It should not be regarded as investigational or for research. Performed By: #### E BVPCR ####[facility] (DEFAULT)[address] [address] HISTOPLASMA AND BLASTOMYCES ANTIGEN, ENZYME IMMUNOASSAY, SERMon 01-19-2024 Histoplasma/Blastomy antonia Ag Result Not detected Not Detected [facility] Comment on above: No antigen from Hist oplasma or Blastomyces detected. False negative results may occur depending on extent of disease, and/or site of infection. Repeat testing on a new specimen if clinically indicated. Histoplasma/Blastomy antonia Ag Value Not detected ng/mL [facility] Comment on above: ADDITIONAL INFORMATION This test was developed and its performance characteristics determined by [facility] in a manner consistent with CLIA requirements. This test has not been cleared or approved by the U.S. Food and Drug Administration. Test Performed by: [facility] - [address] [address] Geneticist: Rosendo Bose M.D. Ph.D.; IA# [id number] [facility] MAGNESIUMon 01-19-2024 Interpretation and review of laboratory results Normal [facility] Magnesium [Mass/Vol] 1.8 mg/dL 1.6 - 2 .6 mg/dL [facility] Magnesium [Mass/Vol] 1.8 mg/dL Normal 1.6-2.6 [facility] Comment on above: Performed By: #### M HELEN BLOOM7 ####[facility] (DEFAULT)[address] [place] [address] No Panel Informationon 01-19 [facility] TACROLIMUS LEVEL, TROUGH ([place] E DRUG LEVEL)Ordered By: Raymundo Mehta on 01-19-2024 Interpretation and review of laboratory results Normal [facility] Tacrolimus (Bld) [Mass/Vol] 6.8 ng/mL Bone Marrow Transplant: 4.0-12.0, Therapeutic: 5.0-15.0 [facility] - [place] Method performed is a chemiluminescent microparticle immunoasssay on the [employer] i2000. The range is based on experience at [facility] and users should be aware that target concentrations vary widely depending on concomitant therapy, time post-transplant, and desired degree of immunosuppression. [facility] TACROLIMUS LEVEL, TROUGH ([place] E DRUG LEVEL)on 01-19-2024 Tacrolimus, Trough 6.8 ng/mL Normal Bone Susana ow Transplant: 4.0-12.0, Therapeutic: 5.0-15.0 [facility] Comment on above: Order Comment: Pleas e draw at specified interval PRIOR to dose. Do not hold dose to wait for level. Specimens batched twice per day, (M-F) and once per day weekendsMethod performed is a chemiluminescent microparticle immunoasssay on the [employer] i2000.The range is based on experience at [facility] and users should be aware that target concentrations vary widely depending on concomitant therapy, time post-transplant, and desired degree of immunosuppression. Performed By: #### T ACRO ####[facility] (DEFAULT)[address] [place] [id number] US AV fistulaOrdered By: Diana Reyes on 01-19-2024 [facility] Work Phone: US AV fistulaon 01-19-2024 Radiology Study observation (narrative) [facility] AFP TUMOR MARKEROrdered By: Francisca Alaniz on 01-18-2024 AFP.tumor marker [Mass/Vol] ng/mL NINF - 8.1 ng/mL [facility] Comment on above: This test was perfor med on the [employer] Immunoassay platform by [employer] which is a two-site sandwich chemiluminescent immunoassay. It is important to note that assays using different manufacturers and/or methods may not be comparable. Interpretation and review of laboratory results Normal [facility] CBC,PLATELETSon 01-18-2024 Erythrocyte distribution width (RBC) [Ratio] 13.9 % 10.9 - 14.3 % [facility] Hematocrit (Bld) [Volume fraction] 38.4 % Low 39.6 - 48.8 % [facility] Hemoglobin (Bld) [Mass/Vol] 12.1 g/dL Low 13.4 - 16.8 g/dL [facility] Interpretation and review of laboratory results Abnormal [facility] MCH (RBC) [Entitic mass] 27.8 pg 26.1 - 33.3 pg [facility] MCHC (RBC) [Mass/Vol] 31.5 g/dL Low 31.9 - 36.5 g/dL [facility] MCV (RBC) [Entitic vol] 88.3 fL 79.0 - 94.5 fL [facility] Platelet mean volume (Bld) [Entitic vol] 10.4 fL 8.7 - 12.3 fL [facility] Platelets (Bld) [#/Vol] 183 10*3/uL 146 - 337 K/uL [facility] RBC (Bld) [#/Vol] 4.35 10*6/uL Low [facility] WBC (Bld) [#/Vol] 3.66 10*3/uL Low 3.73 - 10. 10 K/uL [facility] Hematocrit (Bld) [Volume fraction] 38.4 % Low 39.6-48.8 [facility] Comment on above: Performed By: #### H EMOGC ####[facility] (DEFAULT)[address] [facility] [place] [address] Hemoglobin (Bld) [Mass/Vol] 12.1 g/dL Low 13.4-16.8 [facility] Comment on above: Performed By: #### H EMOGC ####[facility] (DEFAULT)[address] [facility] [place] [address] MCV (RBC) [Entitic vol] 88.3 fL Normal 79.0-94.5 [facility] Comment on above: Performed By: #### H EMOGC ####[facility] (DEFAULT)[address] [facility] [place] [address] Mean Cell Hgb 27.8 pg Normal 26.1-33.3 [facility] Comment on above: Performed By: #### H EMOGC ####[facility] (DEFAULT)[address] [facility] [place] [address] Mean Cell Hgb Conc 31.5 g/dL Low 31.9-36.5 [facility] Comment on above: Performed By: #### H EMOGC ####[facility] (DEFAULT)[address] [facility] [place] [address] Platelet mean volume (Bld) [Entitic vol] 10.4 fL Normal 8.7-12.3 [facility] Comment on above: Performed By: #### H EMOGC ####[facility] (DEFAULT)[address] [facility] [place] [address] Platelets (Bld) [#/Vol] 183 10*3/uL Normal 146-337 [facility] Comment on above: Performed By: #### H EMOGC ####[facility] (DEFAULT)[address] [facility] [place] [address] RBC (Bld) [#/Vol] 4.35 10*6/uL Low 4.38-5.83 [facility] Comment on above: Performed By: #### H [facility] ####[facility] (DEFAULT)[address] [place] [address] RBC Distribution 13.9 % Normal 10.9-14.3 [facility] Comment on above: Performed By: #### H [facility] ####[facility] (DEFAULT)[address] [place] [address] WBC (Bld) [#/Vol] 3.66 10*3/uL Low 3.73-10.10 [facility] Comment on above: Performed By: #### H [facility] ####[facility] (DEFAULT)[address] [place] [address] CHEM 7 (LYTES,BUN,CREA,GLUC) on 01-18-2024 Anion gap [Moles/Vol] 11 mmol/L 7 - 17 mmol/L [facility] Chloride [Moles/Vol] 108 mmol/L 98 - 10 8 mmol/L [facility] CO2 [Moles/Vol] 26 mmol/L 21 - 31 mmol/L [facility] Creatinine [Mass/Vol] 1.00 mg/dL 0.70 - 1.30 mg/dL [facility] eGFR, CKD-EPI, Male - PINF [facility] Comment on above: Reported eGFR is bas ed on the CKD-EPI 2020 equation using creatinine, age, and sex. Glucose [Mass/Vol] 89 mg/dL 70 - 99 mg/dL [facility] Osmolality Calc [Osmolality] 295 [facility] Potassium [Moles/Vol] 3.9 mmol/L 3.5 - 5.0 mmol/L [facility] Sodium [Moles/Vol] 141 mmol/L 135 - 145 mmol/L [facility] Urea nitrogen [Mass/Vol] 16 mg/dL 7 - 25 mg/dL [facility] Urea nitrogen/Creatinine [Mass ratio] 16 mg/mg [facility] Anion gap [Moles/Vol] 11 mmol/L Normal 7-17 [facility] Comment on above: Performed By: #### M GO, CHM7, HFP, TSHQR ####[facility] (DEFAULT)[address] [place] [address] Chloride [Moles/Vol] 108 mmol/L Normal 98-108 [facility] Comment on above: Performed By: #### M GO, CHM7, HFP, TSHQR ####[facility] (DEFAULT)[address] [facility] [place] [address] CO2 [Moles/Vol] 26 mmol/L Normal 21-31 [facility] Comment on above: Performed By: #### M GO, CHM7, HFP, TSHQR ####[facility] (DEFAULT)[address] [facility] [place] [address] Creatinine [Mass/Vol] 1.00 mg/dL Normal 0.70-1.30 [facility] Comment on above: Performed By: #### M GO, CHM7, HFP, TSHQR ####[facility] (DEFAULT)[address] [place] [address] eGFR, CKD-EPI, Male > Normal >=60 [facility] Comment on above: Result Comment: Repo rted eGFR is based on the CKD-EPI 2020 equation using creatinine, age, and sex. Performed By: #### M GO, CHM7, HFP, TSHQR ####[facility] (DEFAULT)[address] [facility] [place] [address] Glucose [Mass/Vol] 89 mg/dL Normal 70-99 [facility] Comment on above: Performed By: #### M GO, CHM7, HFP, TSHQR ####[facility] (DEFAULT)[address] [facility] [place] [address] Osmolality [Osmolality] 295 mosm/kg Normal 278-305 [facility] Comment on above: Performed By: #### M GO, CHM7, HFP, TSHQR ####[facility] (DEFAULT)[address] [place] [address] Potassium [Moles/Vol] 3.9 mmol/L Normal 3.5-5.0 [facility] Comment on above: Performed By: #### M GO, CHM7, HFP, TSHQR ####[facility] (DEFAULT)[address] [place] [address] Sodium [Moles/Vol] 141 mmol/L Normal 135-145 [facility] Comment on above: Performed By: #### M GO, CHM7, HFP, TSHQR ####[facility] (DEFAULT)[address] [place] [address] Urea nitrogen [Mass/Vol] 16 mg/dL Normal 7-25 [facility] Comment on above: Performed By: #### M GO, CHM7, HFP, TSHQR ####[facility] (DEFAULT)[address] [facility] [address] Urea nitrogen/Creatinine [Mass ratio] 16 mg/mg Normal [facility] Comment on above: Performed By: #### M GO, CHM7, HFP, TSHQR ####[facility] (DEFAULT)[address] [facility] [place] [address] Cardiac echo study Procedure Ordered By: Gian Carlos on 01-18-2024 Ao ASC index 1.63 cm/m2 [facility] Work Phone: Ao peak meliton 1.46 m/s [facility] Work Phone: Ao SOV index 1.56 cm/m2 [facility] Work Phone: Ao STJ index 1.25 cm/m2 [facility] Work Phone: Ao VTI 35.74 cm [facility] Work Phone: Ascending [facility] 3.[facility]: AV LVOT peak gradient 4 mmHg [facility] Work Phone: AV mean gradient 5 mmHg [facility] Work Phone: AV peak gradient 9 mmHG [facility] Work Phone: AV valve area 3.09 cm2 [facility] Work Phone: AV Velocity Ratio 0.73 [facility] Work Phone: VEGA (continuity Vmax) 3.01 cm2 [facility] Work Phone: VEGA (continuity VTI) 3.09 cm2 [facility] Work Phone: VEGA index (continuity Vmax) 1.45 m/s [facility] Work Phone: VEGA index (continuity VTI) 1.49 cm2/m2 [facility] Work Phone: Avg e' pk meliton 0.07 m/s [facility] Work Phone: Avg E/e' ratio 19.45 [facility] Work Phone: Body surface area Derived from formula 2.08 m2 [facility] Work Phone: BP EF 62 % [facility] Work Phone: DI (Vmax) 0.73 [facility] Work Phone: DI (VTI) 0.74 m/2 [facility] Work Phone: E wave decelartion time 180.38 msec [facility] Work Phone: e' lateral pk meliton 0.0789 [facility]s [facility]: e' lateral pk meliton 0.08 m/s [facility] Work Phone: e' septal pk meliton 0.0653 m/s [facility] Work Phone: e' septal pk meliton 0.07 m/s [facility] Work Phone: E/A ratio 2.67 [facility] Work Phone: E/e' lateral ratio 17.62 [facility] Work Phone: E/e' septal [facility] 21.29 [facility] Work Phone: EF SP 2CH 66 [facility] Work Phone: EF SP 4CH 58 [facility] Work Phone: FS 28 % 28 - 44 % [facility] Work Phone: IVC ostium 2.30 cm [facility] Work Phone: IVS 1.11 cm [facility] Work Phone: LA AREA 2CH 24.36 cm2 [facility] Work Phone: LA area 4CH 20.36 cm2 [facility] Work Phone: LA ESV BP (MOD) 64 mL [facility] Work Phone: LA ESV BP (MOD) index 31 mL/m2 [facility] Work Phone: LA ESV SP 2CH (MOD) 76 mL [facility] Work Phone: LA ESV SP 4CH (MOD) 53 mL [facility] Work Phone: LV EDV BP 180 mL [facility] Work Phone: LV EDV SP 2CH 190 mL [facility] Work Phone: LV EDV SP 4CH 166 mL [facility] Work Phone: LV ESV BP 69 mL [facility] Work Phone: LV ESV SP 2CH 65 mL [facility] Work Phone: LV ESV SP 4CH 70 mL [facility] Work Phone: LV mass 254.73 g [facility] Work Phone: LV Mass Index 122.5 g/m2 [facility] Work Phone: LV RWT 0.42 [facility] Work Phone: [phone] LV stroke volume BP (ml) 111 mL [facility] Work Phone: LV stroke volume index BP 53.37 mL/m2 [facility] Work Phone: LVIDD 5.53 cm [facility] Work Phone: LVIDS 3.97 cm [facility] Work Phone: LVOT area 4.15 cm2 [facility] Work Phone: LVOT diameter 2.30 cm [facility] Work Phone: LVOT peak meliton 1.06 m/s [facility] Work Phone: LVOT peak VTI 26.61 cm [facility] Work Phone: LVOT stroke volume 111 cm3 [facility] Work Phone: LVOT stroke volume index 53.13 ml/m2 [facility] Work Phone: Mr max meliton 4.21 m/s [facility] Work Phone: MR VTI 134.50 cm [facility] Work Phone: [facility]: [facility] peak gradient 11 [facility] Work Phone: MV pk A meliton 0.52 m/s [facility] Work Phone: MV pk E meliton 1.39 m/s [facility] Work Phone: MV stenosis pressure 1/2 time 58.56 ms [facility] Work Phone: MV valve area by continuity eq 2.93 cm2 [facility] Work Phone: MV valve area p 1/2 method 3.76 cm2 [facility] Work Phone: MV VTI 37.70 cm [facility] Work Phone: MVA (continuity VTI) 2.92 cm [facility] Work Phone: [facility] AV VTI RATIO PRE STRESS 0.74 [facility] Work Phone: [facility] ECHO LV BIPLANE SYSTOLIC VOLUME INDEX 33.17 mL/m2 [facility] Work Phone: [facility] ECHO LV BP DIASTOLIC VOLUME INDEX 86.54 mL/m2 [facility] Work Phone: [facility] ECHO MR PEAK GRADIENT 70.94 mmHg [facility] Work Phone: PW 1.16 cm [facility] Work Phone: RA area 4CH (MOD) 14.50 cm2 [facility] Work [facility]: RA vol index 4CH (MOD) 18.27 mL/m2 [facility] Work Phone: Right atrium volume 4 chamber method of disks 38 mL [facility] Work Phone: RV Area diastolic 33.20 [facility]2 [facility] Work Phone: RV Area systolic 21.30 cm2 [facility] Work Phone: RV basal diam 4.52 cm [facility] Work Phone: RV Fractional area change 35.8 % [facility] Work Phone: RV long diam 8.96 cm [facility] Work Phone: RV mid diam 3.70 cm [facility] Work Phone: RV S' 22.01 cm/s [facility] Work Phone: RVOT peak gradient 4 mmHg [facility] Work Phone: RVOT peak meliton 0.96 m/s [facility] Work Phone: RVOT peak VTI 20.86 cm [facility] Work Phone: Sinus 3.24 cm [facility] Work Phone: STJ 2.61 cm [facility] Work Phone: Stroke Volume 111 cm/mL [facility] Work Phone: Stroke volume index 53 [facility] Work Phone: TAPSE 2.19 cm [facility] Work Phone: [facility] Work Phone: Cardiac echo study Procedure on [...] echocardiography study was performed. Imaging system used: [employer]. Indications Indications for study: shortness of breath. [facility] Radiology Study observation (narrative) [facility] HEPATIC FUNCTION PANELon Albumin [Mass/Vol] 3.5 g/dL 3.5 - 5.0 g/dL [facility] ALP [Catalytic activity/Vol] 70 U/L 32 - 126 U/L [facility] ALT [Catalytic activity/Vol] 8 U/L Low 10 - 52 U/L [facility] AST [Catalytic activity/Vol] 20 U/L 10 - 39 U/L [facility] Bilirubin [Mass/Vol] 1.7 mg/dL High NINF - 1.5 mg/dL [facility] Bilirubin.direct [Mass/Vol] 0.4 mg/dL High NINF - 0.3 mg/dL [facility] Protein [Mass/Vol] 6.0 g/dL Low 6.4 - 8.3 g/dL [facility] Albumin [Mass/Vol] 3.5 g/dL Normal 3.5-5.0 [facility] Comment on above: Performed By: #### M GO, CHM7, HFP, TSHQR ####[facility] (DEFAULT)[address] [place] [address] ALP [Catalytic activity/Vol] 70 U/L Normal 32-126 [facility] Comment on above: Performed By: #### M GO, CHM7, HFP, TSHQR ####[facility] (DEFAULT)[address] [place] [address] ALT [Catalytic activity/Vol] 8 U/L Low 10-52 [facility] Comment on above: Performed By: #### M GO, CHM7, HFP, TSHQR ####[facility] (DEFAULT)[address] [place] [address] AST [Catalytic activity/Vol] 20 U/L Normal 10-39 [facility] Comment on above: Performed By: #### M GO, CHM7, HFP, TSHQR ####[facility] (DEFAULT)[address] [place] [address] Bilirubin [Mass/Vol] 1.7 mg/dL High <1.5 [facility] Comment on above: Performed By: #### M GO, CHM7, HFP, TSHQR ####[facility] (DEFAULT)[address] [place] [address] Bilirubin.indirect [Mass/Vol] 0.4 mg/dL High <0.3 [facility] Comment on above: Performed By: #### M GO, CHM7, HFP, TSHQR ####[facility] (DEFAULT)[address] [place] [address] Protein [Mass/Vol] 6.0 g/dL Low 6.4-8.3 [facility] Comment on above: Performed By: #### M MERLE CHM7, HFP, TSHQR ####[facility] (DEFAULT)[address] [place] [address] MAGNESIUMon 01-18-2024 Magnesium [Mass/Vol] 1.5 mg/dL Low 1.6 - 2 .6 mg/dL [facility] Magnesium [Mass/Vol] 1.5 mg/dL Low 1.6-2.6 [facility] Comment on above: Performed By: #### M MERLE, CHM7, HFP, TSHQR ####[facility] (DEFAULT)[address] [place] [id number] No Panel Informationon 01-18 Interpretation and review of laboratory results Abnormal [facility] PT,INR,PTTon 01-18-2024 aPTT Coag (PPP) [Time] 30.0 s [facility] INR Coag (Bld) [Relative time] 1.1 {INR} 0.9 - 1.1 [facility] Interpretation and review of laboratory results Abnormal [facility] PT Coag (PPP) [Time] 14.5 s High [facility] aPTT Coag (Bld) [Time] 30.0 s Normal 24.0-34.3 [facility] Comment on above: Performed By: #### P TPTT ####[facility] (DEFAULT)[address] [place] [address] INR Coag (PPP) [Relative time] 1.1 {INR} Normal 0.9-1.1 [facility] Comment on above: Performed By: #### P TPTT ####[facility] (DEFAULT)[address] [place] [address] PT Coag (PPP) [Time] 14.5 s High 11.9-14.2 [facility] Comment on above: Performed By: #### P TPTT ####[facility] (DEFAULT)[address] [place] [address] TSH W/FT4 REFLEXon 4 Interpretation and review of laboratory results Normal [facility] TSH Qn 2.660 m[IU]/L [facility] TSH 2.660 uIU/mL Normal 0.550-4.780 [facility] Comment on above: Performed By: #### M GO, CHM7, HFP, TSHQR ####[facility] (DEFAULT)[address] [place] [address] AFP TUMOR MARKERon 4 AFP Tumor Marker <2.2 Normal <8.1 [facility] Comment on above: Result Comment: This test was performed on the [employer] Immunoassay platform by [employer] which is a two-site sandwich chemiluminescent immunoassay. It is important to note that assays using different manufacturers and/or methods may not be comparable. Performed By: #### A FPTMR ####[facility] (DEFAULT)[address] [place] [address] DARYL AURIS SCREEN BY PCRO rdered By: Mynor Alejandro on 01-17-2024 Daryl auris Screen by PCR Not detected Not Detected [facility] Interpretation and review of laboratory results Normal [facility] This test was perfor med using a real-time PCR assay. This test was developed, and its performance characteristics determined by [facility] at [facility]. It has not been cleared or approved by the FDA. The laboratory is regulated under CLIA as qualified to perform high-complexity testing. This test is used for clinical purposes. It should not be regarded as investigational or for research. [facility] CBC,PLATELETSon 01-17-2024 Erythrocyte distribution width (RBC) [Ratio] 14.0 % 10.9 - 14.3 % [facility] Hematocrit (Bld) [Volume fraction] 37.2 % Low 39.6 - 48.8 % [facility] Hemoglobin (Bld) [Mass/Vol] 12.0 g/dL Low 13.4 - 16.8 g/dL [facility] Interpretation and review of laboratory results Abnormal [facility] MCH (RBC) [Entitic mass] 27.9 pg 26.1 - 33.3 pg [facility] MCHC (RBC) [Mass/Vol] 32.3 g/dL 31.9 - 36.5 g/dL [facility] MCV (RBC) [Entitic vol] 86.5 fL 79.0 - 94.5 fL [facility] Platelet mean volume (Bld) [Entitic vol] 10.5 fL 8.7 - 12.3 fL [facility] Platelets (Bld) [#/Vol] 159 10*3/uL 146 - 337 K/uL [facility] RBC (Bld) [#/Vol] 4.30 10*6/uL Low [facility] WBC (Bld) [#/Vol] 3.69 10*3/uL Low 3.73 - 10. 10 K/uL [facility] Hematocrit (Bld) [Volume fraction] 37.2 % Low 39.6-48.8 [facility] Comment on above: Performed By: #### H [facility] ####[facility] (DEFAULT)[address] [place] [address] Hemoglobin (Bld) [Mass/Vol] 12.0 g/dL Low 13.4-16.8 [facility] Comment on above: Performed By: #### H [facility] ####[facility] (DEFAULT)[address] [place] [address] MCV (RBC) [Entitic vol] 86.5 fL Normal 79.0-94.5 [facility] Comment on above: Performed By: #### H [facility] ####[facility] (DEFAULT)[address] [facility] [place] [address] Mean Cell Hgb 27.9 pg Normal 26.1-33.3 [facility] Comment on above: Performed By: #### H EMOGC ####U [facility] (DEFAULT)[address] [place] [address] Mean Cell Hgb Conc 32.3 g/dL Normal 31.9-36.5 [facility] Comment on above: Performed By: #### H EMOGC ####[facility] (DEFAULT)[address] [facility] [place] [address] Platelet mean volume (Bld) [Entitic vol] 10.5 fL Normal 8.7-12.3 [facility] Comment on above: Performed By: #### H EMOGC ####[facility] (DEFAULT)[address] [facility] [place] [address] Platelets (Bld) [#/Vol] 159 10*3/uL Normal 146-337 [facility] Comment on above: Performed By: #### H EMOGC ####[facility] (DEFAULT)[address] [facility] [place] [address] RBC (Bld) [#/Vol] 4.30 10*6/uL Low 4.38-5.83 [facility] Comment on above: Performed By: #### H EMOGC ####[facility] (DEFAULT)[address] [facility] [place] [address] RBC Distribution 14.0 % Normal 10.9-14.3 [facility] Comment on above: Performed By: #### H EMOGC ####[facility] (DEFAULT)[address] [facility] [place] [address] WBC (Bld) [#/Vol] 3.69 10*3/uL Low 3.73-10.10 [facility] Comment on above: Performed By: #### H EMOGC ####[facility] (DEFAULT)[address] [place] [address] CHEM 7 (LYTES,BUN,CREA,GLUC) on 01-17-2024 Anion gap [Moles/Vol] 13 mmol/L 7 - 17 mmol/L [facility] Chloride [Moles/Vol] 109 mmol/L High 98 - 10 8 mmol/L [facility] CO2 [Moles/Vol] 21 mmol/L 21 - 31 mmol/L [facility] Creatinine [Mass/Vol] 1.04 mg/dL 0.70 - 1.30 mg/dL [facility] eGFR, CKD-EPI, Male 86 - PINF [facility] Comment on above: Reported eGFR is bas ed on the CKD-EPI 2020 equation using creatinine, age, and sex. Glucose [Mass/Vol] 82 mg/dL 70 - 99 mg/dL [facility] Osmolality Calc [Osmolality] 292 [facility] Potassium [Moles/Vol] 4.4 mmol/L 3.5 - 5.0 mmol/L [facility] Sodium [Moles/Vol] 139 mmol/L 135 - 145 mmol/L [facility] Urea nitrogen [Mass/Vol] 17 mg/dL 7 - 25 mg/dL [facility] Urea nitrogen/Creatinine [Mass ratio] 16 mg/mg [facility] Anion gap [Moles/Vol] 13 mmol/L Normal 7-17 [facility] Comment on above: Performed By: #### C HM7, HFP, MGO ####[facility] (DEFAULT)[address] [place] [address] Chloride [Moles/Vol] 109 mmol/L High 98-108 [facility] Comment on above: Performed By: #### C HM7, HFP, MGO ####[facility] (DEFAULT)[address] [place] [address] CO2 [Moles/Vol] 21 mmol/L Normal 21-31 [facility] Comment on above: Performed By: #### C HM7, HFP, MGO ####[facility] (DEFAULT)[address] [facility] [place] [address] Creatinine [Mass/Vol] 1.04 mg/dL Normal 0.70-1.30 [facility] Comment on above: Performed By: #### C HM7, HFP, MGO ####U [facility] (DEFAULT)[address] [place] [address] GFR/1.73 sq M.predicted among non-blacks MDRD (S/P/Bld) [Vol rate/Area] 86 mL/min/{1.73_m2} Normal >=60 [facility] Comment on above: Result Comment: Repo rted eGFR is based on the CKD-EPI 2020 equation using creatinine, age, and sex. Performed By: #### C HM7, HFP, MGO ####[facility] (DEFAULT)[address] [facility] [place] [address] Glucose [Mass/Vol] 82 mg/dL Normal 70-99 [facility] Comment on above: Performed By: #### C HM7, HFP, MGO ####[facility] (DEFAULT)[address] [facility] [place] [address] Osmolality [Osmolality] 292 mosm/kg Normal 278-305 [facility] Comment on above: Performed By: #### C HM7, HFP, MGO ####[facility] (DEFAULT)[address] [facility] [place] [address] Potassium [Moles/Vol] 4.4 mmol/L Normal 3.5-5.0 [facility] Comment on above: Performed By: #### C HM7, HFP, MGO ####[facility] (DEFAULT)[address] [place] [address] Sodium [Moles/Vol] 139 mmol/L Normal 135-145 [facility] Comment on above: Performed By: #### C HM7, HFP, MGO ####[facility] (DEFAULT)[address] [facility] [place] [address] Urea nitrogen [Mass/Vol] 17 mg/dL Normal 7-25 [facility] Comment on above: Performed By: #### C JASMYNE, TAVO, MGO ####[facility] (DEFAULT)[address] [place] [address] Urea nitrogen/Creatinine [Mass ratio] 16 mg/mg Normal [facility] Comment on above: Performed By: #### C JASMYNE, TAVO, MGO ####[facility] (DEFAULT)[address] [place] [address] CT ABDOMEN/PELVIS WITHOUT CO NTRASTon 01-17-2024 CT ABDOMEN/PELVIS WITHOUT CONTRAST Normal [facility] CT Abdomen and Pelvis WO [...] unremarkable. 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 Right lower quadrant [...] unremarkable. 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 Right lower quadrant [...] the middle lobe. Trace left pleural effusion. [facility] Radiology Study observation (narrative) [facility] HEPATIC FUNCTION PANELon Albumin [Mass/Vol] 3.5 g/dL 3.5 - 5.0 g/dL [facility] ALP [Catalytic activity/Vol] 73 U/L 32 - 126 U/L [facility] ALT [Catalytic activity/Vol] 7 U/L Low 10 - 52 U/L [facility] AST [Catalytic activity/Vol] 25 U/L 10 - 39 U/L [facility] Bilirubin [Mass/Vol] 1.8 mg/dL High NINF - 1.5 mg/dL [facility] Bilirubin.direct [Mass/Vol] 0.3 mg/dL High NINF - 0.3 mg/dL [facility] Protein [Mass/Vol] 6.0 g/dL Low 6.4 - 8.3 g/dL [facility] Albumin [Mass/Vol] 3.5 g/dL Normal 3.5-5.0 [facility] Comment on above: Performed By: #### C HM7, HFP, MGO ####[facility] (DEFAULT)[address] [facility] [place] [address] ALP [Catalytic activity/Vol] 73 U/L Normal 32-126 [facility] Comment on above: Performed By: #### C HM7, HFP, MGO ####[facility] (DEFAULT)[address] [facility] [place] [address] ALT [Catalytic activity/Vol] 7 U/L Low 10-52 [facility] Comment on above: Performed By: #### C HM7, HFP, MGO ####[facility] (DEFAULT)[address] [facility] [address] AST [Catalytic activity/Vol] 25 U/L Normal 10-39 [facility] Comment on above: Performed By: #### C HM7, HFP, MGO ####[facility] (DEFAULT)[address] [facility] [place] [address] Bilirubin [Mass/Vol] 1.8 mg/dL High <1.5 [facility] Comment on above: Performed By: #### C HM7, HFP, MGO ####[facility] (DEFAULT)[address] [place] [address] Bilirubin.indirect [Mass/Vol] 0.3 mg/dL High <0.3 [facility] Comment on above: Performed By: #### C HM7, TAVO, MGO ####[facility] (DEFAULT)[address] [place] [address] Protein [Mass/Vol] 6.0 g/dL Low 6.4-8.3 [facility] Comment on above: Performed By: #### C HM7, TAVO, MGO ####[facility] (DEFAULT)[address] [facility] [place] [address] HISTOPLASMA AND BLASTOMYCES ANTIGEN, ENZYME IMMUNOASSAY, SERMon 01-17-2024 Histoplasma/Blastomy antonia Ag Result Not detected Normal Not Detected [facility] Comment on above: Result Comment: No a ntigen from Histoplasma or Blastomyces detected. Falsenegative results may occur depending on extent of disease,and/or site of infection. Repeat testing on a new specimenif clinically indicated. Performed By: #### H CORAL ####[facility] (DEFAULT)[address] [facility] [place] [address] Histoplasma/Blastomy antonia Ag Value Not detected Normal [facility] Comment on above: Result Comment: ---- ADDITIONAL INFORMATION This test was developed and its performance characteristicsdetermined by [facility] in a manner consistent with CLIArequirements. This test has not been cleared or approved bythe U.S. Food and Drug Administration.Test Performed by:[facility] [place] [id number] Director: Rosendo Bose M.D. Ph.D.; CLIA# [id number] Performed By: #### H ILYAG ####[facility] (DEFAULT)[address] [facility] [place] [address] MAGNESIUMon 01-17-2024 Interpretation and review of laboratory results Normal [facility] Magnesium [Mass/Vol] 1.7 mg/dL 1.6 - 2 .6 mg/dL [facility] Magnesium [Mass/Vol] 1.7 mg/dL Normal 1.6-2.6 [facility] Comment on above: Performed By: #### C HM7, HFP, MGO ####[facility] (DEFAULT)[address] [place] [address] No Panel Informationon 01-17 Interpretation and review of laboratory results Abnormal [facility] PT,INR,PTTon 01-17-2024 aPTT Coag (PPP) [Time] 29.9 s [facility] INR Coag (Bld) [Relative time] 1.1 {INR} 0.9 - 1.1 [facility] Interpretation and review of laboratory results Abnormal [facility] PT Coag (PPP) [Time] 14.5 s High [facility] aPTT Coag (Bld) [Time] 29.9 s Normal 24.0-34.3 [facility] Comment on above: Performed By: #### P TPTT ####[facility] (DEFAULT)[address] [place] [address] INR Coag (PPP) [Relative time] 1.1 {INR} Normal 0.9-1.1 [facility] Comment on above: Performed By: #### P TPTT ####[facility] (DEFAULT)[address] [place] [address] PT Coag (PPP) [Time] 14.5 s High 11.9-14.2 [facility] Comment on above: Performed By: #### P TPTT ####[facility] (DEFAULT)[address] [place] [address] B-TYPE NATRIURETIC PEPTIDE ( BRAIN)on 01-16-2024 Interpretation and review of laboratory results Abnormal [facility] Natriuretic peptide B (Bld) [Mass/Vol] 212 pg/mL High 0 - 100 pg/mL [facility] Natriuretic peptide B (Bld) [Mass/Vol] 212 pg/mL High 0-100 [facility] Comment on above: Performed By: #### B TURKEY PICKER ####[facility] (DEFAULT)[address] [place] [address] CALCIUMon 01-16-2024 Calcium [Mass/Vol] 8.5 mg/dL Low 8.6 - 10. 5 mg/dL [facility] Calcium [Mass/Vol] 8.5 mg/dL Low 8.6-10.5 [facility] Comment on above: Performed By: #### C A, IPB, MGO, CHM7, HFP ####[facility] (DEFAULT)[address] [place] [address] DARYL AURIS SCREEN BY PCRo n 01-16-2024 Daryl auris Screen by PCR Not detected Normal Not Detected [facility] Comment on above: Order Comment: This test was performed using a real-time PCR assay. This test was developed, and its performance characteristics determined by [facility]. It has not been cleared or approved by the FDA. The laboratory is regulated under CLIA as qualified to perform high-complexity testing. This test is used for clinical purposes. It should not be regarded as investigational or for research. Performed By: #### C ANDIDA AURIS SCREEN BY PCR ####[facility] (DEFAULT)[address] [place] [address] CBC AND ELECTRONIC DIFFon Basophils (Bld) [#/Vol] K/uL 0.00 - 0.09 K/uL [facility] Basophils/100 WBC (Bld) 0.6 % [facility] Differential cell count method Nom (Bld) Electronic Differential [facility] Eosinophils (Bld) [#/Vol] 0.09 10*3/uL 0.00 - 0.48 K/uL [facility] Eosinophils/100 WBC (Bld) 2.5 % [facility] Erythrocyte distribution width (RBC) [Ratio] 14.0 % 10.9 - 14.3 % [facility] Hematocrit (Bld) [Volume fraction] 37.4 % Low 39.6 - 48.8 % [facility] Hemoglobin (Bld) [Mass/Vol] 12.1 g/dL Low 13.4 - 16.8 g/dL [facility] Immature granulocytes (Bld) [#/Vol] K/uL NINF - 0.07 K/uL [facility] Immature granulocytes/100 WBC (Bld) 0.3 % [facility] Interpretation and review of laboratory results Abnormal [facility] Lymphocytes (Bld) [#/Vol] 1.16 10*3/uL 0.83 - 3.57 K/uL [facility] Lymphocytes/100 WBC (Bld) 32.0 % [facility] MCH (RBC) [Entitic mass] 28.4 pg 26.1 - 33.3 pg [facility] MCHC (RBC) [Mass/Vol] 32.4 g/dL 31.9 - 36.5 g/dL [facility] MCV (RBC) [Entitic vol] 87.8 fL 79.0 - 94.5 fL [facility] Monocytes (Bld) [#/Vol] 0.43 10*3/uL 0.24 - 0.93 K/uL [facility] Monocytes/100 WBC (Bld) 11.9 % [facility] Neutrophils (Bld) [#/Vol] 1.91 10*3/uL 1.57 - 6.19 K/uL [facility] Nucleated RBC/100 WBC (Bld) [Ratio] 0.0 % [facility] Platelet mean volume (Bld) [Entitic vol] 10.1 fL 8.7 - 12.3 fL [facility] Platelets (Bld) [#/Vol] 155 10*3/uL 146 - 337 K/uL [facility] RBC (Bld) [#/Vol] 4.26 10*6/uL Low [facility] Segmented neutrophils/100 WBC (Bld) 52.7 % [facility] WBC (Bld) [#/Vol] 3.62 10*3/uL Low 3.73 - 10. 10 K/uL [facility] Abs Baso Auto < Normal 0.00-0.09 [facility] Comment on above: Performed By: #### L [id number] ####[facility] (DEFAULT)[address] [place] [address] Basophils/100 WBC (Bld) 0.6 % Normal [facility] Comment on above: Performed By: #### L [id number] ####[facility] (DEFAULT)[address] [place] [address] DIFF STATUS Electronic Differential Normal [facility] Comment on above: Performed By: #### L [id number] ####[facility] (DEFAULT)[address] [place] [address] Eosinophils (Bld) [#/Vol] 0.09 10*3/uL Normal 0.00-0.48 [facility] Comment on above: Performed By: #### L [id number] ####[facility] (DEFAULT)[address] [facility] [place] [address] Eosinophils/100 WBC (Bld) 2.5 % Normal [facility] Comment on above: Performed By: #### L [id number] ####[facility] (DEFAULT)[address] [place] [address] Hematocrit (Bld) [Volume fraction] 37.4 % Low 39.6-48.8 [facility] Comment on above: Performed By: #### L [id number] ####[facility] (DEFAULT)[address] [place] [address] Hemoglobin (Bld) [Mass/Vol] 12.1 g/dL Low 13.4-16.8 [facility] Comment on above: Performed By: #### L [id number] ####[facility] (DEFAULT)[address] [place] [address] Immature Grans % 0.3 % Normal [facility] Comment on above: Performed By: #### L [id number] ####[facility] (DEFAULT)[address] [place] [address] Immature Grans Absolute < Normal <=0.07 [facility] Comment on above: Performed By: #### L [id number] ####[facility] (DEFAULT)[address] [facility] [place] [address] Lymphocytes (Bld) [#/Vol] 1.16 10*3/uL Normal 0.83-3.57 [facility] Comment on above: Performed By: #### L [id number] ####[facility] (DEFAULT)[address] [facility] [place] [address] Lymphocytes/100 WBC (Bld) 32.0 % Normal [facility] Comment on above: Performed By: #### L [id number] ####[facility] (DEFAULT)[address] [facility] [place] [address] MCV (RBC) [Entitic vol] 87.8 fL Normal 79.0-94.5 [facility] Comment on above: Performed By: #### L [id number] ####[facility] (DEFAULT)[address] [facility] [place] [address] Mean Cell Hgb 28.4 pg Normal 26.1-33.3 [facility] Comment on above: Performed By: #### L [id number] ####[facility] (DEFAULT)[address] [facility] [place] [address] Mean Cell Hgb Conc 32.4 g/dL Normal 31.9-36.5 [facility] Comment on above: Performed By: #### L [id number] ####[facility] (DEFAULT)[address] [facility] [place] [address] Monocytes (Bld) [#/Vol] 0.43 10*3/uL Normal 0.24-0.93 [facility] Comment on above: Performed By: #### L [id number] ####[facility] (DEFAULT)[address] [place] [address] Monocytes/100 WBC (Bld) 11.9 % Normal [facility] Comment on above: Performed By: #### L [id number] ####[facility] (DEFAULT)[address] [place] [address] Nucleated RBC 0.0 /100 WBC Normal <=0.2 [facility] Comment on above: Performed By: #### L [id number] ####[facility] (DEFAULT)[address] [place] [address] Platelet mean volume (Bld) [Entitic vol] 10.1 fL Normal 8.7-12.3 [facility] Comment on above: Performed By: #### L [id number] ####[facility] (DEFAULT)[address] [place] [address] Platelets (Bld) [#/Vol] 155 10*3/uL Normal 146-337 [facility] Comment on above: Performed By: #### L [id number] ####[facility] (DEFAULT)[address] [place] [address] RBC (Bld) [#/Vol] 4.26 10*6/uL Low 4.38-5.83 [facility] Comment on above: Performed By: #### L [id number] ####[facility] (DEFAULT)[address] [facility] [place] [address] RBC Distribution 14.0 % Normal 10.9-14.3 [facility] Comment on above: Performed By: #### L [id number] ####[facility] (DEFAULT)[address] [place] [address] Segs + Bands Auto 52.7 % Normal [facility] Comment on above: Performed By: #### L [id number] ####[facility] (DEFAULT)[address] [place] [address] Segs + Bands,Absolute Auto 1.91 K/uL Normal 1.57-6.19 [facility] Comment on above: Performed By: #### L [id number] ####[facility] (DEFAULT)[address] [place] [address] WBC (Bld) [#/Vol] 3.62 10*3/uL Low 3.73-10.10 [facility] Comment on above: Performed By: #### L [id number] ####[facility] (DEFAULT)[address] [place] [address] CHEM 7 (LYTES,BUN,CREA,GLUC) on 01-16-2024 Anion gap [Moles/Vol] 11 mmol/L 7 - 17 mmol/L [facility] Chloride [Moles/Vol] 108 mmol/L 98 - 10 8 mmol/L [facility] CO2 [Moles/Vol] 24 mmol/L 21 - 31 mmol/L [facility] Creatinine [Mass/Vol] 1.04 mg/dL 0.70 - 1.30 mg/dL [facility] eGFR, CKD-EPI, Male 86 - PINF [facility] Comment on above: Reported eGFR is bas ed on the CKD-EPI 2020 equation using creatinine, age, and sex. Glucose [Mass/Vol] 95 mg/dL 70 - 99 mg/dL [facility] Osmolality Calc [Osmolality] 293 [facility] Potassium [Moles/Vol] 4.0 mmol/L 3.5 - 5.0 mmol/L [facility] Sodium [Moles/Vol] 139 mmol/L 135 - 145 mmol/L [facility] Urea nitrogen [Mass/Vol] 19 mg/dL 7 - 25 mg/dL [facility] Urea nitrogen/Creatinine [Mass ratio] 18 mg/mg [facility] Anion gap [Moles/Vol] 11 mmol/L Normal - [facility] Comment on above: Performed By: #### C A, IPB, MGO, CHM7, HFP ####[facility] (DEFAULT)[address] [place] [address] Chloride [Moles/Vol] 108 mmol/L Normal 98-108 [facility] Comment on above: Performed By: #### C A, IPB, MGO, CHM7, HFP ####[facility] (DEFAULT)[address] [place] [address] CO2 [Moles/Vol] 24 mmol/L Normal 21-31 [facility] Comment on above: Performed By: #### C A, IPB, MGO, CHM7, HFP ####[facility] (DEFAULT)[address] [facility] [place] [address] Creatinine [Mass/Vol] 1.04 mg/dL Normal 0.70-1.30 [facility] Comment on above: Performed By: #### C A, IPB, MGO, CHM7, HFP ####[facility] (DEFAULT)[address] [facility] [place] [address] GFR/1.73 sq M.predicted among non-blacks MDRD (S/P/Bld) [Vol rate/Area] 86 mL/min/{1.73_m2} Normal >=60 [facility] Comment on above: Result Comment: Repo rted eGFR is based on the CKD-EPI 2020 equation using creatinine, age, and sex. Performed By: #### C A, IPB, MGO, CHM7, HFP ####[facility] (DEFAULT)[address] [facility] [place] [address] Glucose [Mass/Vol] 95 mg/dL Normal 70-99 [facility] Comment on above: Performed By: #### C A, IPB, MGO, CHM7, HFP ####[facility] (DEFAULT)[address] [facility] [place] [address] Osmolality [Osmolality] 293 mosm/kg Normal 278-305 [facility] Comment on above: Performed By: #### C A, IPB, MGO, CHM7, HFP ####[facility] (DEFAULT)[address] [facility] [place] [address] Potassium [Moles/Vol] 4.0 mmol/L Normal 3.5-5.0 [facility] Comment on above: Performed By: #### C A, IPB, MGO, CHM7, HFP ####[facility] (DEFAULT)[address] [place] [address] Sodium [Moles/Vol] 139 mmol/L Normal 135-145 [facility] Comment on above: Performed By: #### C A, IPB, MGO, CHM7, HFP ####[facility] (DEFAULT)[address] [facility] [place] [address] Urea nitrogen [Mass/Vol] 19 mg/dL Normal 7-25 [facility] Comment on above: Performed By: #### C A, IPB, MGO, CHM7, HFP ####[facility] (DEFAULT)[address] [facility] [place] [address] Urea nitrogen/Creatinine [Mass ratio] 18 mg/mg Normal [facility] Comment on above: Performed By: #### C A, IPB, MGO, CHM7, HFP ####[facility] (DEFAULT)[address] [facility] [place] [address] D-DIMER,QUANTITATIVEOrdered By: Shaji Kelly on 01-16-2024 Fibrin D-dimer FEU (PPP) [Mass/Vol] 0.67 [facility] Comment on above: The D-Dimer assay is intended for use in conjuction with a clinical pretest probability (PTP) assessment model to exclude pulmonary embolism (PE) and as an aid in the diagnosis of Deep Vein Thrombosis (DVT) in outpatients suspected of PE or DVT. For the assay in use at [facility] ([facility]), a cutoff of <0.50 mcg/mL has a Negative Predictive Value of 99.7% for exclusion of DVT in low and moderate PTP patients. Interpretation and review of laboratory results Abnormal [facility] D-DIMER,QUANTITATIVEon 01-16 D-Dimer, High Sensitivity 0.67 mcg/mL FEU High <0.50 [facility] Comment on above: Result Comment: The D-Dimer assay is intended for use in conjuction with a clinical pretest probability (PTP) assessment model to exclude pulmonary embolism (PE) and as an aid in the diagnosis of Deep Vein Thrombosis (DVT) in outpatients suspected of PE or DVT. For the assay in use at [facility] ([facility]), a cutoff of <0.50 mcg/mL has a Negative Predictive Value of 99.7% for exclusion of DVT in low and moderate PTP patients. Performed By: #### P TPTT, HSDDI ####[facility] (DEFAULT)[address] [place] [address] HEPATIC FUNCTION PANELon Albumin [Mass/Vol] 3.7 g/dL 3.5 - 5.0 g/dL [facility] ALP [Catalytic activity/Vol] 70 U/L 32 - 126 U/L [facility] ALT [Catalytic activity/Vol] 8 U/L Low 10 - 52 U/L [facility] AST [Catalytic activity/Vol] 21 U/L 10 - 39 U/L [facility] Bilirubin [Mass/Vol] 1.9 mg/dL High NINF - 1.5 mg/dL [facility] Bilirubin.direct [Mass/Vol] 0.4 mg/dL High NINF - 0.3 mg/dL [facility] Protein [Mass/Vol] 6.1 g/dL Low 6.4 - 8.3 g/dL [facility] Albumin [Mass/Vol] 3.7 g/dL Normal 3.5-5.0 [facility] Comment on above: Performed By: #### C A, IPB, MGO, CHM7, HFP ####[facility] (DEFAULT)[address] [place] [address] ALP [Catalytic activity/Vol] 70 U/L Normal 32-126 [facility] Comment on above: Performed By: #### C A, IPB, MGO, CHM7, HFP ####[facility] (DEFAULT)[address] [place] [address] ALT [Catalytic activity/Vol] 8 U/L Low 10-52 [facility] Comment on above: Performed By: #### C A, IPB, MGO, CHM7, HFP ####[facility] (DEFAULT)[address] [place] [address] AST [Catalytic activity/Vol] 21 U/L Normal 10-39 [facility] Comment on above: Performed By: #### C A, IPB, MGO, CHM7, HFP ####[facility] (DEFAULT)[address] [place] [address] Bilirubin [Mass/Vol] 1.9 mg/dL High <1.5 [facility] Comment on above: Performed By: #### C A, IPB, MGO, CHM7, HFP ####[facility] (DEFAULT)[address] [place] [address] Bilirubin.indirect [Mass/Vol] 0.4 mg/dL High <0.3 [facility] Comment on above: Performed By: #### C A, IPB, MGO, CHM7, HFP ####[facility] (DEFAULT)[address] [place] [address] Protein [Mass/Vol] 6.1 g/dL Low 6.4-8.3 [facility] Comment on above: Performed By: #### C A, IPB, MGO, CHM7, HFP ####[facility] (DEFAULT)[address] [place] [address] MAGNESIUMon 01-16-2024 Magnesium [Mass/Vol] 1.7 mg/dL 1.6 - 2 .6 mg/dL [facility] Magnesium [Mass/Vol] 1.7 mg/dL Normal 1.6-2.6 [facility] Comment on above: Performed By: #### JO ANN Willis MGO, HELENM7, HFP ####[facility] (DEFAULT)[address] [place] [id number] No Panel Informationon 01-16 Interpretation and review of laboratory results Abnormal [facility] Interpretation and review of laboratory results Normal [facility] PHOSPHATE, INORGANICon 01-16 Phosphate [Mass/Vol] 4.1 mg/dL 2.2 - 4 .6 mg/dL [facility] Phosphorous 4.1 mg/dL Normal 2.2-4.6 [facility] Comment on above: Performed By: #### JO ANN Willis, DOMENICA, CHM7, HFP ####[facility] (DEFAULT)[address] [place] [address] PT,INR,PTTon 01-16-2024 aPTT Coag (PPP) [Time] 29.6 s [facility] INR Coag (Bld) [Relative time] 1.2 {INR} High 0.9 - 1.1 [facility] Interpretation and review of laboratory results Abnormal [facility] PT Coag (PPP) [Time] 14.9 s High [facility] aPTT Coag (Bld) [Time] 29.6 s Normal 24.0-34.3 [facility] Comment on above: Performed By: #### P TPTT, HSDDI ####[facility] (DEFAULT)[address] [place] [address] INR Coag (PPP) [Relative time] 1.2 {INR} High 0.9-1.1 [facility] Comment on above: Performed By: #### P TPTT, HSDDI ####[facility] (DEFAULT)[address] [place] [address] PT Coag (PPP) [Time] 14.9 s High 11.9-14.2 [facility] Comment on above: Performed By: #### P TPTT, HSDDI ####[facility] (DEFAULT)[address] [place] [address] TACROLIMUS LEVEL, TROUGH ([place] E DRUG LEVEL)Ordered By: Jimy Castillo on 01-16-2024 Interpretation and review of laboratory results Normal [facility] Tacrolimus (Bld) [Mass/Vol] 5.7 ng/mL Bone Marrow Transplant: 4.0-12.0, Therapeutic: 5.0-15.0 [facility] Method performed is a chemiluminescent microparticle immunoasssay on the [employer] i2000. The range is based on experience at [facility] and users should be aware that target concentrations vary widely depending on concomitant therapy, time post-transplant, and desired degree of immunosuppression. [facility] TACROLIMUS LEVEL, TROUGH ([place] E DRUG LEVEL)on 01-16-2024 Tacrolimus, Trough 5.7 ng/mL Normal Bone Susana ow Transplant: 4.0-12.0, Therapeutic: 5.0-15.0 [facility] Comment on above: Order Comment: Pleas e draw at specified interval PRIOR to dose. Do not hold dose to wait for level. Specimens batched twice per day, (M-F) and once per day weekendsMethod performed is a chemiluminescent microparticle immunoasssay on the [employer] i2000.The range is based on experience at [facility] and users should be aware that target concentrations vary widely depending on concomitant therapy, time post-transplant, and desired degree of immunosuppression. Performed By: #### T ACRO ####[facility] (DEFAULT)[address] [place] [address] US ABDOMEN LIVER DOPPLERon 0 01-16-2024 US ABDOMEN LIVER DOPPLER Normal [facility] US.doppler Abdominal vessels on 01-16-2024 [...] pleural effusion. Trace right upper quadrant ascites. [facility] Radiology Study observation (narrative) [facility] Abdominal vessels Ordered By: Iona Duran on 01-16-2024 [facility] Work Phone: XR CHEST PA AND LATERAL 2 EWSon 01-16-2024 XR CHEST PA AND LATERAL 2 VIEWS Normal [facility] XR Chest PA and Lateralon [...] pleural effusion. [facility] Radiology Study observation (narrative) [facility] XR Chest PA and LateralOrder ed By: Daisha Patterson on 01-16-2024 [facility] Work Phone: ALL CBC WITH AUTO DIFFon BASOPHILS ABSOLUTE AUTO 0.0 [facility] Basophils/100 WBC (Bld) 0.5 % 0.2 - 2.0 % [facility] Eosinophils/100 WBC (Bld) 2.8 % 0.9 - 7.0 % [facility] Erythrocyte distribution width (RBC) [Ratio] 13.8 % 11.0 - 15.0 % [facility] Hematocrit (Bld) [Volume fraction] 43.7 % 42.0 - 54.0 % [facility] Hemoglobin (Bld) [Mass/Vol] 14.0 g/dL 14.0 - 18.0 g/dL [facility] IMMATURE GRANULOCYTES ABS AUTO 0.01 [facility] Immature granulocytes/100 WBC (Bld) 0.3 % 0.0 - 0.5 % [facility] LYMPHOCYTES ABSOLUTE AUTO 1.5 [facility] Lymphocytes/100 WBC (Bld) 37.5 % 20.5 - 60.0 % [facility] MCH (RBC) [Entitic mass] 28.4 pg 25.9 - 34.0 pg [facility] MCHC (RBC) [Mass/Vol] 32.0 g/dL 29.9 - 35.2 g/dL [facility] MCV (RBC) [Entitic vol] 88.6 fL 80.0 - 94.0 fL [facility] MONOCYTES ABSOLUTE AUTO 0.5 [facility] Monocytes/100 WBC (Bld) 11.9 % 1.7 - 12.0 % [facility] NEUTROPHILS ABSOLUTE AUTO 1.9 [facility] Neutrophils/100 WBC (Bld) 47.0 % 43.0 - 75.0 % [facility] Platelet mean volume (Bld) [Entitic vol] 10.3 fL 9.5 - 13.5 [facility]L [facility] PLT 180 [facility] RBC 4.93 [facility] WBC 4.0 [facility] ALL CBC WITH AUTO DIFFon BASOPHILS ABSOLUTE AUTO 0.0 [facility] Basophils/100 WBC (Bld) 0.5 % 0.2 - 2.0 % [facility] Eosinophils/100 WBC (Bld) 2.6 % 0.9 - 7.0 % [facility] Erythrocyte distribution width (RBC) [Ratio] 13.5 % 11.0 - 15.0 % [facility] Hematocrit (Bld) [Volume fraction] 43.8 % 42.0 - 54.0 % [facility] Hemoglobin (Bld) [Mass/Vol] 14.0 g/dL 14.0 - 18.0 g/dL [facility] IMMATURE GRANULOCYTES ABS AUTO 0.00 [facility] Immature granulocytes/100 WBC (Bld) 0.0 % 0.0 - 0.5 % [facility] Interpretation and review of laboratory results Abnormal [facility] LYMPHOCYTES ABSOLUTE AUTO 1.8 [facility] Lymphocytes/100 WBC (Bld) 45.2 % 20.5 - 60.0 % [facility] MCH (RBC) [Entitic mass] 27.9 pg 25.9 - 34.0 pg [facility] MCHC (RBC) [Mass/Vol] 32.0 g/dL 29.9 - 35.2 g/dL [facility] MCV (RBC) [Entitic vol] 87.4 fL 80.0 - 94.0 fL [facility] MONOCYTES ABSOLUTE AUTO 0.4 [facility] Monocytes/100 WBC (Bld) 9.6 % 1.7 - 12.0 % [facility] NEUTROPHILS ABSOLUTE AUTO 1.6 [facility] Neutrophils/100 WBC (Bld) 42.1 % Low 43.0 - 75.0 % [facility] Platelet mean volume (Bld) [Entitic vol] 9.8 fL 9.5 - 13.5 fL [facility] EO # 0.1 [facility] PLT 180 [facility] RBC 5.01 [facility] WBC 3.9 Low [facility] CHEM 7 (LYTES,BUN,CREA,GLUC) on 09-11-2023 Anion gap [Moles/Vol] 13 mmol/L 7 - 17 mmol/L [facility] Chloride [Moles/Vol] 111 mmol/L High 98 - 10 8 mmol/L [facility] CO2 [Moles/Vol] 20 mmol/L Low 21 - 31 mmol/L [facility] Creatinine [Mass/Vol] 1.13 mg/dL 0.70 - 1.30 mg/dL [facility] eGFR, CKD-EPI, Male 78 - PINF [facility] Glucose [Mass/Vol] 109 mg/dL High 70 - 99 mg/dL [facility] Interpretation and review of laboratory results Abnormal [facility] Osmolality Calc [Osmolality] 295 [facility] Potassium [Moles/Vol] 4.3 mmol/L 3.5 - 5.0 mmol/L [facility] Sodium [Moles/Vol] 140 mmol/L 135 - 145 mmol/L [facility] Urea nitrogen [Mass/Vol] 16 mg/dL 7 - 25 mg/dL [facility] Urea nitrogen/Creatinine [Mass ratio] 14 mg/mg [facility] Anion gap [Moles/Vol] 13 mmol/L Normal 7-17 [facility] Comment on above: Performed By: #### NATHANIEL RAMÍREZ ####[facility] (DEFAULT)[address] [place] [address] Chloride [Moles/Vol] 111 mmol/L High 98-108 [facility] Comment on above: Performed By: #### NATHANIEL RAMÍREZ ####[facility] (DEFAULT)[address] [place] [address] CO2 [Moles/Vol] 20 mmol/L Low 21-31 [facility] Comment on above: Performed By: #### NATHANIEL RAMÍREZ ####[facility] (DEFAULT)[address] [place] [address] Creatinine [Mass/Vol] 1.13 mg/dL Normal 0.70-1.30 [facility] Comment on above: Performed By: #### Rod BLOOM CHM7 ####[facility] (DEFAULT)[address] [facility] [place] [address] GFR/1.73 sq M.predicted among non-blacks MDRD (S/P/Bld) [Vol rate/Area] 78 mL/min/{1.73_m2} Normal >=60 [facility] Comment on above: Result Comment: Repo rted eGFR is based on the CKD-EPI 2020 equation using creatinine, age, and sex. Performed By: #### TJ RAMÍREZ7 ####[facility] (DEFAULT)[address] [facility] [place] [address] Glucose [Mass/Vol] 109 mg/dL High 70-99 [facility] Comment on above: Performed By: #### Rod BLOOM CHM7 ####[facility] (DEFAULT)[address] [facility] [place] [address] Osmolality [Osmolality] 295 mosm/kg Normal 278-305 [facility] Comment on above: Performed By: #### Rod BLOOM CHM7 ####[facility] (DEFAULT)[address] [facility] [place] [address] Potassium [Moles/Vol] 4.3 mmol/L Normal 3.5-5.0 [facility] Comment on above: Performed By: #### Rod BLOOM CHM7 ####[facility] (DEFAULT)[address] [place] [address] Sodium [Moles/Vol] 140 mmol/L Normal 135-145 [facility] Comment on above: Performed By: #### Rod BLOOM CHM7 ####[facility] (DEFAULT)[address] [facility] [place] [address] Urea nitrogen [Mass/Vol] 16 mg/dL Normal 7-25 [facility] Comment on above: Performed By: #### Rod BLOOM CHM7 ####[facility] (DEFAULT)[address] [place] [address], [place] [address] Urea nitrogen/Creatinine [Mass ratio] 14 mg/mg Normal [facility] Comment on above: Performed By: #### NATHANIEL RAMÍREZ ####[facility] (DEFAULT)[address] [place] [address] GLUCOSE POCon 09-11-2023 Glucose [Mass/Vol] 108 mg/dL High 70 - 99 mg/dL [facility] Interpretation and review of laboratory results Abnormal [facility] POC Sample Type CAPBL [facility] Legionella sp identified Org specific cx Nom (Unsp spec)on 09-11-2023 Bacteria identified Cx Nom (Unsp spec) NO GROWTH DAY 7 OF 7 [facility] MAGNESIUMon 09-11-2023 Interpretation and review of laboratory results Normal [facility] Magnesium [Mass/Vol] 1.6 mg/dL 1.6 - 2 .6 mg/dL [facility] Magnesium [Mass/Vol] 1.6 mg/dL Normal 1.6-2.6 [facility] Comment on above: Performed By: #### NATHANIEL RAMÍREZ ####[facility] (DEFAULT)[address] [place] [address] No Panel Informationon 09-11 [facility] TACROLIMUS LEVEL, TROUGH ([place] E DRUG LEVEL)on 09-11-2023 Interpretation and review of laboratory results Normal [facility] Tacrolimus (Bld) [Mass/Vol] 11.5 ng/mL [facility] Tacrolimus, Trough 11.5 ng/mL Normal Bone Susana ow Transplant: 4.0-12.0, Therapeutic: 5.0-15.0 [facility] Comment on above: Order Comment: Pleas e draw at specified interval PRIOR to dose. Do not hold dose to wait for level. Specimens batched twice per day, (M-F) and once per day weekendsMethod performed is a chemiluminescent microparticle immunoasssay on the [employer] i2000.The range is based on experience at [facility] and users should be aware that target concentrations vary widely depending on concomitant therapy, time post-transplant, and desired degree of immunosuppression. Performed By: #### T ACRO ####[facility] (DEFAULT)[address] [place] [address] CBC,PLATELETSon 09-10-2023 Erythrocyte distribution width (RBC) [Ratio] 13.9 % 10.9 - 14.3 % [facility] Hematocrit (Bld) [Volume fraction] 40.0 % 39.6 - 48.8 % [facility] Hemoglobin (Bld) [Mass/Vol] 12.7 g/dL Low 13.4 - 16.8 g/dL [facility] Interpretation and review of laboratory results Abnormal [facility] MCH (RBC) [Entitic mass] 27.3 pg 26.1 - 33.3 pg [facility] MCHC (RBC) [Mass/Vol] 31.8 g/dL Low 31.9 - 36.5 g/dL [facility] MCV (RBC) [Entitic vol] 86.0 fL 79.0 - 94.5 fL [facility] Platelet mean volume (Bld) [Entitic vol] 9.5 fL 8.7 - 12.3 fL [facility] Platelets (Bld) [#/Vol] 225 10*3/uL 146 - 337 K/uL [facility] RBC (Bld) [#/Vol] 4.65 10*6/uL [facility] WBC (Bld) [#/Vol] 6.52 10*3/uL 3.73 - 10. 10 K/uL [facility] Hematocrit (Bld) [Volume fraction] 40.0 % Normal 39.6-48.8 [facility] Comment on above: Performed By: #### H [facility] ####[facility] (DEFAULT)[address] [place] [address] Hemoglobin (Bld) [Mass/Vol] 12.7 g/dL Low 13.4-16.8 [facility] Comment on above: Performed By: #### H EMOGC ####[facility] (DEFAULT)[address] [place] [address] MCV (RBC) [Entitic vol] 86.0 fL Normal 79.0-94.5 [facility] Comment on above: Performed By: #### H EMOGC ####[facility] (DEFAULT)[address] [facility] [place] [address] Mean Cell Hgb 27.3 pg Normal 26.1-33.3 [facility] Comment on above: Performed By: #### H EMOGC ####[facility] (DEFAULT)[address] [facility] [place] [address] Mean Cell Hgb Conc 31.8 g/dL Low 31.9-36.5 [facility] Comment on above: Performed By: #### H EMOGC ####[facility] (DEFAULT)[address] [facility] [place] [address] Platelet mean volume (Bld) [Entitic vol] 9.5 fL Normal 8.7-12.3 [facility] Comment on above: Performed By: #### H EMOGC ####[facility] (DEFAULT)[address] [place] [address] Platelets (Bld) [#/Vol] 225 10*3/uL Normal 146-337 [facility] Comment on above: Performed By: #### H EMOGC ####[facility] (DEFAULT)[address] [facility] [place] [address] RBC (Bld) [#/Vol] 4.65 10*6/uL Normal 4.38-5.83 [facility] Comment on above: Performed By: #### H EMOGC ####[facility] (DEFAULT)[address] [facility] [place] [address] RBC Distribution 13.9 % Normal 10.9-14.3 [facility] Comment on above: Performed By: #### H [facility] ####[facility] (DEFAULT)[address] [place] [address] WBC (Bld) [#/Vol] 6.52 10*3/uL Normal 3.73-10.10 [facility] Comment on above: Performed By: #### H [facility] ####[facility] (DEFAULT)[address] [place] [address] CHEM 7 (LYTES,BUN,CREA,GLUC) on 09-10-2023 Anion gap [Moles/Vol] 13 mmol/L 7 - 17 mmol/L [facility] Chloride [Moles/Vol] 111 mmol/L High 98 - 10 8 mmol/L [facility] CO2 [Moles/Vol] 20 mmol/L Low 21 - 31 mmol/L [facility] Creatinine [Mass/Vol] 1.27 mg/dL 0.70 - 1.30 mg/dL [facility] eGFR, CKD-EPI, Male 68 - PINF [facility] Glucose [Mass/Vol] 100 mg/dL High 70 - 99 mg/dL [facility] Osmolality Calc [Osmolality] 293 [facility] Potassium [Moles/Vol] 4.4 mmol/L 3.5 - 5.0 mmol/L [facility] Sodium [Moles/Vol] 140 mmol/L 135 - 145 mmol/L [facility] Urea nitrogen [Mass/Vol] 12 mg/dL 7 - 25 mg/dL [facility] Urea nitrogen/Creatinine [Mass ratio] 9 mg/mg [facility] Anion gap [Moles/Vol] 13 mmol/L Normal 7-17 [facility] Comment on above: Performed By: #### NATHANIEL RAMÍREZ, [facility] ####[facility] (DEFAULT)[address] [place] [address] Chloride [Moles/Vol] 111 mmol/L High 98-108 [facility] Comment on above: Performed By: #### M NATHANIEL BLOOM, HFP ####[facility] (DEFAULT)[address] [facility] [place] [address] CO2 [Moles/Vol] 20 mmol/L Low 21-31 [facility] Comment on above: Performed By: #### NATHANIEL RAMÍREZ, HFP ####[facility] (DEFAULT)[address] [place] [address] Creatinine [Mass/Vol] 1.27 mg/dL Normal 0.70-1.30 [facility] Comment on above: Performed By: #### NATHANIEL RAMÍREZ, HFP ####[facility] (DEFAULT)[address] [facility] [place] [address] GFR/1.73 sq M.predicted among non-blacks MDRD (S/P/Bld) [Vol rate/Area] 68 mL/min/{1.73_m2} Normal >=60 [facility] Comment on above: Result Comment: Repo rted eGFR is based on the CKD-EPI 2020 equation using creatinine, age, and sex. Performed By: #### NATHANIEL RAMÍREZ, HFP ####[facility] (DEFAULT)[address] [place] [address], [place] [address] Glucose [Mass/Vol] 100 mg/dL High 70-99 [facility] Comment on above: Performed By: #### NATHANIEL RAMÍREZ, HFP ####[facility] (DEFAULT)[address] [facility] [place] [address] Osmolality [Osmolality] 293 mosm/kg Normal 278-305 [facility] Comment on above: Performed By: #### NATHANIEL RAMÍREZ, HFP ####[facility] (DEFAULT)[address] [facility] [place] [address] Potassium [Moles/Vol] 4.4 mmol/L Normal 3.5-5.0 [facility] Comment on above: Performed By: #### NATHANIEL RAMÍREZ, HFP ####[facility] (DEFAULT)[address] [facility] [place] [address] Sodium [Moles/Vol] 140 mmol/L Normal 135-145 [facility] Comment on above: Performed By: #### M NATHANIEL BLOOM, HFP ####[facility] (DEFAULT)[address] [facility] [address] Urea nitrogen [Mass/Vol] 12 mg/dL Normal 7-25 [facility] Comment on above: Performed By: #### M NATHANIEL BLOOM, HFP ####[facility] (DEFAULT)[address] [facility] [place] [address] Urea nitrogen/Creatinine [Mass ratio] 9 mg/mg Normal [facility] Comment on above: Performed By: #### NATHANIEL RAMÍREZ, HFP ####[facility] (DEFAULT)[address] [facility] [place] [address] HEPATIC FUNCTION PANELon Albumin [Mass/Vol] 3.3 g/dL Low 3.5 - 5.0 g/dL [facility] ALP [Catalytic activity/Vol] 143 U/L High 32 - 126 U/L [facility] ALT [Catalytic activity/Vol] 28 U/L 10 - 52 U/L [facility] AST [Catalytic activity/Vol] 29 U/L 10 - 39 U/L [facility] Bilirubin [Mass/Vol] 0.9 [facility] Bilirubin.direct [Mass/Vol] 0.2 mg/dL NINF - 0.3 mg/dL [facility] Protein [Mass/Vol] 6.8 g/dL 6.4 - 8.3 g/dL [facility] Albumin [Mass/Vol] 3.3 g/dL Low 3.5-5.0 [facility] Comment on above: Performed By: #### NATHANIEL RAMÍREZ, HFP ####[facility] (DEFAULT)[address] [facility] [place] [address] ALP [Catalytic activity/Vol] 143 U/L High 32-126 [facility] Comment on above: Performed By: #### M NATHANIEL BLOOM, HFP ####[facility] (DEFAULT)[address] [place] [address] ALT [Catalytic activity/Vol] 28 U/L Normal 10-52 [facility] Comment on above: Performed By: #### NATHANIEL RAMÍREZ, HFP ####[facility] (DEFAULT)[address] [place] [address] AST [Catalytic activity/Vol] 29 U/L Normal 10-39 [facility] Comment on above: Performed By: #### NATHANIEL RAMÍREZ, HFP ####[facility] (DEFAULT)[address] [place] [address] Bilirubin [Mass/Vol] 0.9 mg/dL Normal <1.5 [facility] Comment on above: Performed By: #### NATHANIEL RAMÍREZ, HFP ####[facility] (DEFAULT)[address] [place] [address] Bilirubin.indirect [Mass/Vol] 0.2 mg/dL Normal <0.3 [facility] Comment on above: Performed By: #### TJ RAMÍREZ7, HFP ####[facility] (DEFAULT)[address] [place] [address] Protein [Mass/Vol] 6.8 g/dL Normal 6.4-8.3 [facility] Comment on above: Performed By: #### NATHANIEL RAMÍREZ, HFP ####[facility] (DEFAULT)[address] [place] [address] MAGNESIUMon 09-10-2023 Interpretation and review of laboratory results Normal [facility] Magnesium [Mass/Vol] 1.9 mg/dL 1.6 - 2 .6 mg/dL [facility] Magnesium [Mass/Vol] 1.9 mg/dL Normal 1.6-2.6 [facility] Comment on above: Performed By: #### M GO, CHM7, HFP ####[facility] (DEFAULT)[address] [place] [address] No Panel Informationon 09-10 Interpretation and review of laboratory results Abnormal [facility] TACROLIMUS LEVEL, TROUGH ([place] E DRUG LEVEL)Ordered By: Jimy Castillo on 09-10-2023 Interpretation and review of laboratory results Normal [facility] Tacrolimus (Bld) [Mass/Vol] 11.8 ng/mL [facility] TACROLIMUS LEVEL, TROUGH ([place] E DRUG LEVEL)on 09-10-2023 Tacrolimus, Trough 11.8 ng/mL Normal Bone Susana ow Transplant: 4.0-12.0, Therapeutic: 5.0-15.0 [facility] Comment on above: Order Comment: Pleas e draw at specified interval PRIOR to dose. Do not hold dose to wait for level. Specimens batched twice per day, (M-F) and once per day weekendsMethod performed is a chemiluminescent microparticle immunoasssay on the [employer] i2000.The range is based on experience at [facility] and users should be aware that target concentrations vary widely depending on concomitant therapy, time post-transplant, and desired degree of immunosuppression. Performed By: #### T ACRO ####[facility] (DEFAULT)[address] [place] [address] CHEM 7 (LYTES,BUN,CREA,GLUC) on 09-09-2023 Anion gap [Moles/Vol] 14 mmol/L 7 - 17 mmol/L [facility] Chloride [Moles/Vol] 113 mmol/L High 98 - 10 8 mmol/L [facility] CO2 [Moles/Vol] 18 mmol/L Low 21 - 31 mmol/L [facility] Creatinine [Mass/Vol] 1.03 mg/dL 0.70 - 1.30 mg/dL [facility] eGFR, CKD-EPI, Male 87 - PINF [facility] Glucose [Mass/Vol] 106 mg/dL High 70 - 99 mg/dL [facility] Interpretation and review of laboratory results Abnormal [facility] Osmolality Calc [Osmolality] 294 [facility] Potassium [Moles/Vol] 4.0 mmol/L 3.5 - 5.0 mmol/L [facility] Sodium [Moles/Vol] 141 mmol/L 135 - 145 mmol/L [facility] Urea nitrogen [Mass/Vol] 10 mg/dL 7 - 25 mg/dL [facility] Urea nitrogen/Creatinine [Mass ratio] 10 mg/mg [facility] Anion gap [Moles/Vol] 14 mmol/L Normal 7-17 [facility] Comment on above: Performed By: #### JO ANN RAMÍREZ, CHM7 ####[facility] (DEFAULT)[address] [facility] [place] [address] Chloride [Moles/Vol] 113 mmol/L High 98-108 [facility] Comment on above: Performed By: #### JO ANN RAMÍREZ, CHM7 ####[facility] (DEFAULT)[address] [facility] [place] [address] CO2 [Moles/Vol] 18 mmol/L Low 21-31 [facility] Comment on above: Performed By: #### JO ANN RAMÍREZ, CHM7 ####[facility] (DEFAULT)[address] [facility] [place] [address] Creatinine [Mass/Vol] 1.03 mg/dL Normal 0.70-1.30 [facility] Comment on above: Performed By: #### JO ANN RAMÍREZ, CHM7 ####[facility] (DEFAULT)[address] [place] [address] GFR/1.73 sq M.predicted among non-blacks MDRD (S/P/Bld) [Vol rate/Area] 87 mL/min/{1.73_m2} Normal >=60 [facility] Comment on above: Result Comment: Repo rted eGFR is based on the CKD-EPI 2020 equation using creatinine, age, and sex. Performed By: #### JO ANN RAMÍREZ CHM7 ####U [facility] (DEFAULT)[address] [place] [address] Glucose [Mass/Vol] 106 mg/dL High 70-99 [facility] Comment on above: Performed By: #### JO ANN RAMÍREZ CHM7 ####U [facility] (DEFAULT)[address] [place] [address] Osmolality [Osmolality] 294 mosm/kg Normal 278-305 [facility] Comment on above: Performed By: #### JO ANN RAMÍREZ CHM7 ####[facility] (DEFAULT)[address] [place] [address] Potassium [Moles/Vol] 4.0 mmol/L Normal 3.5-5.0 [facility] Comment on above: Performed By: #### JO ANN RAMÍREZ CHM7 ####[facility] (DEFAULT)[address] [place] [address] Sodium [Moles/Vol] 141 mmol/L Normal 135-145 [facility] Comment on above: Performed By: #### JO ANN RAMÍREZ, CHM7 ####[facility] (DEFAULT)[address] [place] [address] Urea nitrogen [Mass/Vol] 10 mg/dL Normal 7-25 [facility] Comment on above: Performed By: #### JO ANN RAMÍREZ, CHM7 ####[facility] (DEFAULT)[address] [place] [address] Urea nitrogen/Creatinine [Mass ratio] 10 mg/mg Normal [facility] Comment on above: Performed By: #### JO ANN RAMÍREZ, CHM7 ####[facility] (DEFAULT)[address] [place] [address] MAGNESIUMon 09-09-2023 Magnesium [Mass/Vol] 1.6 mg/dL 1.6 - 2 .6 mg/dL [facility] Magnesium [Mass/Vol] 1.6 mg/dL Normal 1.6-2.6 [facility] Comment on above: Performed By: #### M JO ANN BLOOM CHM7 ####[facility] (DEFAULT)[address] [place] [address] No Panel Informationon 09-09 Interpretation and review of laboratory results Normal [facility] PHOSPHATE, INORGANICon 09-09 Phosphate [Mass/Vol] 3.8 mg/dL 2.2 - 4 .6 mg/dL [facility] Phosphorous 3.8 mg/dL Normal 2.2-4.6 [facility] Comment on above: Performed By: #### M JO ANN BLOOM CHM7 ####[facility] (DEFAULT)[address] [place] [address] TACROLIMUS LEVEL, TROUGH ([place] E DRUG LEVEL)on 09-09-2023 Interpretation and review of laboratory results Normal [facility] Tacrolimus (Bld) [Mass/Vol] 9.2 ng/mL [facility] Tacrolimus, Trough 9.2 ng/mL Normal Bone Susana ow Transplant: 4.0-12.0, Therapeutic: 5.0-15.0 [facility] Comment on above: Order Comment: Pleas e draw at specified interval PRIOR to dose. Do not hold dose to wait for level. Specimens batched twice per day, (M-F) and once per day weekendsMethod performed is a chemiluminescent microparticle immunoasssay on the [employer] i2000.The range is based on experience at [facility] and users should be aware that target concentrations vary widely depending on concomitant therapy, time post-transplant, and desired degree of immunosuppression. Performed By: #### T ACRO ####[facility] (DEFAULT)[address] [place] [address] CBC,PLATELETSon 09-08-2023 Erythrocyte distribution width (RBC) [Ratio] 13.6 % 10.9 - 14.3 % [facility] Hematocrit (Bld) [Volume fraction] 36.1 % Low 39.6 - 48.8 % [facility] Hemoglobin (Bld) [Mass/Vol] 11.6 g/dL Low 13.4 - 16.8 g/dL [facility] Interpretation and review of laboratory results Abnormal [facility] MCH (RBC) [Entitic mass] 27.4 pg 26.1 - 33.3 pg [facility] MCHC (RBC) [Mass/Vol] 32.1 g/dL 31.9 - 36.5 g/dL [facility] MCV (RBC) [Entitic vol] 85.1 fL 79.0 - 94.5 fL [facility] Platelet mean volume (Bld) [Entitic vol] 9.5 fL 8.7 - 12.3 fL [facility] Platelets (Bld) [#/Vol] 182 10*3/uL 146 - 337 K/uL [facility] RBC (Bld) [#/Vol] 4.24 10*6/uL Low [facility] WBC (Bld) [#/Vol] 4.59 10*3/uL 3.73 - 10. 10 K/uL [facility] Hematocrit (Bld) [Volume fraction] 36.1 % Low 39.6-48.8 [facility] Comment on above: Performed By: #### H [facility] ####[facility] (DEFAULT)[address] [place] [address] Hemoglobin (Bld) [Mass/Vol] 11.6 g/dL Low 13.4-16.8 [facility] Comment on above: Performed By: #### H [facility] ####[facility] (DEFAULT)[address] [place] [address] MCV (RBC) [Entitic vol] 85.1 fL Normal 79.0-94.5 [facility] Comment on above: Performed By: #### H [facility] ####[facility] (DEFAULT)[address] [place] [address] Mean Cell Hgb 27.4 pg Normal 26.1-33.3 [facility] Comment on above: Performed By: #### H EMOGC ####[facility] (DEFAULT)[address] [place] [address] Mean Cell Hgb Conc 32.1 g/dL Normal 31.9-36.5 [facility] Comment on above: Performed By: #### H EMOGC ####[facility] (DEFAULT)[address] [facility] [place] [address] Platelet mean volume (Bld) [Entitic vol] 9.5 fL Normal 8.7-12.3 [facility] Comment on above: Performed By: #### H EMOGC ####[facility] (DEFAULT)[address] [facility] [place] [address] Platelets (Bld) [#/Vol] 182 10*3/uL Normal 146-337 [facility] Comment on above: Performed By: #### H EMOGC ####[facility] (DEFAULT)[address] [facility] [place] [address] RBC (Bld) [#/Vol] 4.24 10*6/uL Low 4.38-5.83 [facility] Comment on above: Performed By: #### H EMOGC ####[facility] (DEFAULT)[address] [place] [address] RBC Distribution 13.6 % Normal 10.9-14.3 [facility] Comment on above: Performed By: #### H EMOGC ####[facility] (DEFAULT)[address] [facility] [place] [address] WBC (Bld) [#/Vol] 4.59 10*3/uL Normal 3.73-10.10 [facility] Comment on above: Performed By: #### H EMOGC ####[facility] (DEFAULT)[address] [place] [address] CHEM 7 (LYTES,BUN,CREA,GLUC) on 09-08-2023 Anion gap [Moles/Vol] 12 mmol/L 7 - 17 mmol/L [facility] Chloride [Moles/Vol] 113 mmol/L High 98 - 10 8 mmol/L [facility] CO2 [Moles/Vol] 21 mmol/L 21 - 31 mmol/L [facility] Creatinine [Mass/Vol] 1.14 mg/dL 0.70 - 1.30 mg/dL [facility] eGFR, CKD-EPI, Male 77 - [facility]F [facility] Glucose [Mass/Vol] 107 mg/dL High 70 - 99 mg/dL [facility] [place] Osmolality Calc [Osmolality] 296 [facility] [place] Potassium [Moles/Vol] 3.9 mmol/L 3.5 - 5.0 mmol/L [facility] Sodium [Moles/Vol] 142 mmol/L 135 - 145 mmol/L [facility] Urea nitrogen [Mass/Vol] 11 mg/dL 7 - 25 mg/dL [facility] Urea nitrogen/Creatinine [Mass ratio] 10 mg/mg [facility] Anion gap [Moles/Vol] 12 mmol/L Normal 7-17 [facility] Comment on above: Performed By: #### M JO ANN BLOOM, CHM7, HFP ####[facility] (DEFAULT)[address] [place] [address] Chloride [Moles/Vol] 113 mmol/L High 98-108 [facility] Comment on above: Performed By: #### M MERLE IPB, CHM7, HFP ####[facility] (DEFAULT)[address] [place] [address] CO2 [Moles/Vol] 21 mmol/L Normal 21-31 [facility] Comment on above: Performed By: #### M MERLE IPB, CHM7, HFP ####[facility] (DEFAULT)[address] [place] [address] Creatinine [Mass/Vol] 1.14 mg/dL Normal 0.70-1.30 [facility] Comment on above: Performed By: #### JO ANN RAMÍREZ, HELENM7, HFP ####[facility] (DEFAULT)[address] [place] [address] GFR/1.73 sq M.predicted among non-blacks MDRD (S/P/Bld) [Vol rate/Area] 77 mL/min/{1.73_m2} Normal >=60 [facility] Comment on above: Result Comment: Repo rted eGFR is based on the CKD-EPI 2020 equation using creatinine, age, and sex. Performed By: #### JO ANN RAMÍREZ, CHM7, HFP ####[facility] (DEFAULT)[address] [facility] [place] [address] Glucose [Mass/Vol] 107 mg/dL High 70-99 [facility] Comment on above: Performed By: #### JO ANN RAMÍREZ, CHM7, HFP ####[facility] (DEFAULT)[address] [facility] [place] [address] Osmolality [Osmolality] 296 mosm/kg Normal 278-305 [facility] Comment on above: Performed By: #### JO ANN RAMÍREZ, CHM7, HFP ####[facility] (DEFAULT)[address] [place] [address] Potassium [Moles/Vol] 3.9 mmol/L Normal 3.5-5.0 [facility] Comment on above: Performed By: #### JO ANN RAMÍREZ, CHM7, HFP ####[facility] (DEFAULT)[address] [place] [address] Sodium [Moles/Vol] 142 mmol/L Normal 135-145 [facility] Comment on above: Performed By: #### CASTRO RAMÍREZB, CHM7, HFP ####[facility] (DEFAULT)[address] [facility] [place] [address] Urea nitrogen [Mass/Vol] 11 mg/dL Normal 7-25 [facility] Comment on above: Performed By: #### M JO ANN BLOOM, CHM7, HFP ####[facility] (DEFAULT)[address] [place] [address] Urea nitrogen/Creatinine [Mass ratio] 10 mg/mg Normal [facility] Comment on above: Performed By: #### M JO ANN BLOOM, CHM7, HFP ####[facility] (DEFAULT)[address] [place] [address] HEPATIC FUNCTION PANELon Albumin [Mass/Vol] 2.9 g/dL Low 3.5 - 5.0 g/dL [facility] ALP [Catalytic activity/Vol] 133 U/L High 32 - 126 U/L [facility] ALT [Catalytic activity/Vol] 23 U/L 10 - 52 U/L [facility] AST [Catalytic activity/Vol] 23 U/L 10 - 39 U/L [facility] Bilirubin [Mass/Vol] 0.8 mg/dL [facility] Bilirubin.direct [Mass/Vol] 0.2 mg/dL [facility] 0.[facility] mg/dL [facility] Protein [Mass/Vol] 5.9 g/dL Low 6.4 - 8.3 g/dL [facility] Albumin [Mass/Vol] 2.9 g/dL Low 3.5-5.0 [facility] Comment on above: Performed By: #### M JO ANN BLOOM, CHM7, HFP ####[facility] (DEFAULT)[address] [place] [address] ALP [Catalytic activity/Vol] 133 U/L High 32-126 [facility] Comment on above: Performed By: #### M JO ANN BLOOM, CHM7, HFP ####[facility] (DEFAULT)[address] [place] [address] ALT [Catalytic activity/Vol] 23 U/L Normal 10-52 [facility] Comment on above: Performed By: #### M MERLE, IPB, CHM7, HFP ####[facility] (DEFAULT)[address] [facility] [place] [address] AST [Catalytic activity/Vol] 23 U/L Normal 10-39 [facility] Comment on above: Performed By: #### M GO, IPB, CHM7, HFP ####[facility] (DEFAULT)[address] [facility] [place] [address] Bilirubin [Mass/Vol] 0.8 mg/dL Normal <1.5 [facility] Comment on above: Performed By: #### M GO, IPB, CHM7, HFP ####[facility] (DEFAULT)[address] [facility] [place] [address] Bilirubin.indirect [Mass/Vol] 0.2 mg/dL Normal <0.3 [facility] Comment on above: Performed By: #### M GO, IPB, CHM7, HFP ####[facility] (DEFAULT)[address] [facility] [place] [address] Protein [Mass/Vol] 5.9 g/dL Low 6.4-8.3 [facility] Comment on above: Performed By: #### M GO, IPB, CHM7, HFP ####[facility] (DEFAULT)[address] [facility] [place] [address] MAGNESIUMon 09-08-2023 Interpretation and review of laboratory results Normal [facility] Magnesium [Mass/Vol] 1.8 mg/dL 1.6 - 2 .6 mg/dL [facility] Magnesium [Mass/Vol] 1.8 mg/dL Normal 1.6-2.6 [facility] Comment on above: Performed By: #### M GO, IPB, CHM7, HFP ####[facility] (DEFAULT)[address] [facility] [place] [address] No Panel Informationon 09-08 Interpretation and review of laboratory results Abnormal [facility] [facility] PHOSPHATE, INORGANICon 09-08 Interpretation and review of laboratory results Normal [facility] Phosphate [Mass/Vol] 4.1 mg/dL 2.2 - 4 .6 mg/dL [facility] Phosphorous 4.1 mg/dL Normal 2.2-4.6 [facility] Comment on above: Performed By: #### M GO, IPB, CHM7, HFP ####[facility] (DEFAULT)[address] [place] [address] TACROLIMUS LEVEL, TROUGH ([place] E DRUG LEVEL)on 09-08-2023 Interpretation and review of laboratory results Normal [facility] Tacrolimus (Bld) [Mass/Vol] 8.5 ng/mL [facility] Tacrolimus, Trough 8.5 ng/mL Normal Bone Susana ow Transplant: 4.0-12.0, Therapeutic: 5.0-15.0 [facility] Comment on above: Order Comment: Pleas e draw at specified interval PRIOR to dose. Do not hold dose to wait for level. Specimens batched twice per day, (M-F) and once per day weekendsMethod performed is a chemiluminescent microparticle immunoasssay on the [employer] i2000.The range is based on experience at [facility] and users should be aware that target concentrations vary widely depending on concomitant therapy, time post-transplant, and desired degree of immunosuppression. Performed By: #### T ACRO ####[facility] (DEFAULT)[address] [place] [address] CBC,PLATELETSon 09-07-2023 Erythrocyte distribution width (RBC) [Ratio] 13.5 % 10.9 - 14.3 % [facility] Hematocrit (Bld) [Volume fraction] 37.1 % Low 39.6 - 48.8 % [facility] Hemoglobin (Bld) [Mass/Vol] 11.9 g/dL Low 13.4 - 16.8 g/dL [facility] Interpretation and review of laboratory results Abnormal [facility] MCH (RBC) [Entitic mass] 27.7 pg 26.1 - 33.3 pg [facility] MCHC (RBC) [Mass/Vol] 32.1 g/dL 31.9 - 36.5 g/dL [facility] MCV (RBC) [Entitic vol] 86.5 fL 79.0 - 94.5 fL [facility] Platelet mean volume (Bld) [Entitic vol] 9.6 fL 8.7 - 12.3 fL [facility] Platelets (Bld) [#/Vol] 176 10*3/uL 146 - 337 K/uL [facility] RBC (Bld) [#/Vol] 4.29 10*6/uL Low [facility] WBC (Bld) [#/Vol] 4.10 10*3/uL 3.73 - 10. 10 K/uL [facility] Hematocrit (Bld) [Volume fraction] 37.1 % Low 39.6-48.8 [facility] Comment on above: Performed By: #### H [facility] ####[facility] (DEFAULT)[address] [place] [address] Hemoglobin (Bld) [Mass/Vol] 11.9 g/dL Low 13.4-16.8 [facility] Comment on above: Performed By: #### H EMO ####[facility] (DEFAULT)[address] [place] [address] MCV (RBC) [Entitic vol] 86.5 fL Normal 79.0-94.5 [facility] Comment on above: Performed By: #### H EMO ####[facility] (DEFAULT)[address] [place] [address] Mean Cell Hgb 27.7 pg Normal 26.1-33.3 [facility] Comment on above: Performed By: #### H EMO ####[facility] (DEFAULT)[address] [facility] [place] [address] Mean Cell Hgb Conc 32.1 g/dL Normal 31.9-36.5 [facility] Comment on above: Performed By: #### H EMOGC ####[facility] (DEFAULT)[address] [facility] [place] [address] Platelet mean volume (Bld) [Entitic vol] 9.6 fL Normal 8.7-12.3 [facility] Comment on above: Performed By: #### H EMO ####[facility] (DEFAULT)[address] [facility] [place] [address] Platelets (Bld) [#/Vol] 176 10*3/uL Normal 146-337 [facility] Comment on above: Performed By: #### H EMO ####[facility] (DEFAULT)[address] [facility] [place] [address] RBC (Bld) [#/Vol] 4.29 10*6/uL Low 4.38-5.83 [facility] Comment on above: Performed By: #### H EMO ####[facility] (DEFAULT)[address] [facility] [place] [address] RBC Distribution 13.5 % Normal 10.9-14.3 [facility] Comment on above: Performed By: #### H EMOGC ####[facility] (DEFAULT)[address] [facility] [place] [address] WBC (Bld) [#/Vol] 4.10 10*3/uL Normal 3.73-10.10 [facility] Comment on above: Performed By: #### H EMOGC ####[facility] (DEFAULT)[address] [place] [address] CHEM 7 (LYTES,BUN,CREA,GLUC) on 09-07-2023 Anion gap [Moles/Vol] 13 mmol/L 7 - 17 mmol/L [facility] Chloride [Moles/Vol] 113 mmol/L High 98 - 10 8 mmol/L [facility] CO2 [Moles/Vol] 19 mmol/L Low 21 - 31 mmol/L [facility] Creatinine [Mass/Vol] 1.22 mg/dL 0.70 - 1.30 mg/dL [facility] eGFR, CKD-EPI, Male 71 - PINF [facility] Glucose [Mass/Vol] 107 mg/dL High 70 - 99 mg/dL [facility] Osmolality Calc [Osmolality] 295 [facility] Potassium [Moles/Vol] 3.9 mmol/L 3.5 - 5.0 mmol/L [facility] Sodium [Moles/Vol] 141 mmol/L 135 - 145 mmol/L [facility] Urea nitrogen [Mass/Vol] 13 mg/dL 7 - 25 mg/dL [facility] Urea nitrogen/Creatinine [Mass ratio] 11 mg/mg [facility] Anion gap [Moles/Vol] 13 mmol/L Normal 7-17 [facility] Comment on above: Performed By: #### C HM7, IPB, MGO, HFP ####[facility] (DEFAULT)[address] [place] [address] Chloride [Moles/Vol] 113 mmol/L High 98-108 [facility] Comment on above: Performed By: #### C HM7, IPB, MGO, HFP ####[facility] (DEFAULT)[address] [facility] [place] [address] CO2 [Moles/Vol] 19 mmol/L Low 21-31 [facility] Comment on above: Performed By: #### C HM7, IPB, MGO, HFP ####[facility] (DEFAULT)[address] [place] [address] Creatinine [Mass/Vol] 1.22 mg/dL Normal 0.70-1.30 [facility] Comment on above: Performed By: #### C HM7, IPB, MGO, HFP ####[facility] (DEFAULT)[address] [facility] [place] [address] GFR/1.73 sq M.predicted among non-blacks MDRD (S/P/Bld) [Vol rate/Area] 71 mL/min/{1.73_m2} Normal >=60 [facility] Comment on above: Result Comment: Repo rted eGFR is based on the CKD-EPI 2020 equation using creatinine, age, and sex. Performed By: #### C HM7, IPB, MGO, HFP ####U [facility] (DEFAULT)[address] [facility] [place] [address] Glucose [Mass/Vol] 107 mg/dL High 70-99 [facility] Comment on above: Performed By: #### C HM7, IPB, MGO, HFP ####[facility] (DEFAULT)[address] [facility] [place] [address] Osmolality [Osmolality] 295 mosm/kg Normal 278-305 [facility] Comment on above: Performed By: #### C HM7, IPB, MGO, HFP ####[facility] (DEFAULT)[address] [facility] [place] [address] Potassium [Moles/Vol] 3.9 mmol/L Normal 3.5-5.0 [facility] Comment on above: Performed By: #### C HM7, IPB, MGO, HFP ####[facility] (DEFAULT)[address] [facility] [place] [address] Sodium [Moles/Vol] 141 mmol/L Normal 135-145 [facility] Comment on above: Performed By: #### C HM7, IPB, MGO, HFP ####[facility] (DEFAULT)[address] [facility] [place] [address] Urea nitrogen [Mass/Vol] 13 mg/dL Normal 7-25 [facility] Comment on above: Performed By: #### C HM7, IPB, MGO, HFP ####[facility] (DEFAULT)[address] [place] [address], [place] [address] Urea nitrogen/Creatinine [Mass ratio] 11 mg/mg Normal [facility] Comment on above: Performed By: #### C HM7, IPB, MGO, HFP ####[facility] (DEFAULT)[address] [place] [address] HEPATIC FUNCTION PANELon Albumin [Mass/Vol] 2.9 g/dL Low 3.5 - 5.0 g/dL [facility] ALP [Catalytic activity/Vol] 111 U/L 32 - 126 U/L [facility] ALT [Catalytic activity/Vol] 18 U/L 10 - 52 U/L [facility] AST [Catalytic activity/Vol] 23 U/L 10 - 39 U/L [facility] Bilirubin [Mass/Vol] 0.8 [facility] Bilirubin.direct [Mass/Vol] 0.3 mg/dL High NINF - 0.3 mg/dL [facility] Protein [Mass/Vol] 6.0 g/dL Low 6.4 - 8.3 g/dL [facility] Albumin [Mass/Vol] 2.9 g/dL Low 3.5-5.0 [facility] Comment on above: Performed By: #### C HM7, IPB, MGO, HFP ####U [facility] (DEFAULT)[address] [place] [address] ALP [Catalytic activity/Vol] 111 U/L Normal 32-126 [facility] Comment on above: Performed By: #### C HM7, IPB, MGO, HFP ####[facility] (DEFAULT)[address] [place] [address] ALT [Catalytic activity/Vol] 18 U/L Normal 10-52 [facility] Comment on above: Performed By: #### C HM7, IPB, MGO, HFP ####[facility] (DEFAULT)[address] [place] [address] AST [Catalytic activity/Vol] 23 U/L Normal 10-39 [facility] Comment on above: Performed By: #### C HM7, IPB, MGO, HFP ####[facility] (DEFAULT)[address] [place] [address] Bilirubin [Mass/Vol] 0.8 mg/dL Normal <1.5 [facility] Comment on above: Performed By: #### C HM7, IPB, MGO, HFP ####[facility] (DEFAULT)[address] [facility] [place] [address] Bilirubin.indirect [Mass/Vol] 0.3 mg/dL High <0.3 [facility] Comment on above: Performed By: #### C HM7, IPB, MGO, HFP ####[facility] (DEFAULT)[address] [facility] [place] [address] Protein [Mass/Vol] 6.0 g/dL Low 6.4-8.3 [facility] Comment on above: Performed By: #### C HM7, IPB, MGO, HFP ####[facility] (DEFAULT)[address] [facility] [place] [address] MAGNESIUMon 09-07-2023 Interpretation and review of laboratory results Normal [facility] Magnesium [Mass/Vol] 1.7 mg/dL 1.6 - 2 .6 mg/dL [facility] Magnesium [Mass/Vol] 1.7 mg/dL Normal 1.6-2.6 [facility] Comment on above: Performed By: #### C HM7, IPB, MGO, HFP ####[facility] (DEFAULT)[address] [facility] [place] [address] No Panel Informationon 09-07 Interpretation and review of laboratory results Abnormal [facility] PHOSPHATE, INORGANICon 09-07 Interpretation and review of laboratory results Normal [facility] Phosphate [Mass/Vol] 4.4 mg/dL 2.2 - 4 .6 mg/dL [facility] Phosphorous 4.4 mg/dL Normal 2.2-4.6 [facility] Comment on above: Performed By: #### C HM7, IPB, MGO, HFP ####[facility] (DEFAULT)[address] [place] [address] TACROLIMUS LEVEL, TROUGH ([place] E DRUG LEVEL)Ordered By: Elizabeth Maldonado on 09-07-2023 Interpretation and review of laboratory results Normal [facility] Tacrolimus (Bld) [Mass/Vol] 7.8 ng/mL [facility] TACROLIMUS LEVEL, TROUGH ([place] E DRUG LEVEL)on 09-07-2023 Tacrolimus, Trough 7.8 ng/mL Normal Bone Susana ow Transplant: 4.0-12.0, Therapeutic: 5.0-15.0 [facility] Comment on above: Order Comment: Pleas e draw at specified interval PRIOR to dose. Do not hold dose to wait for level. Specimens batched twice per day, (M-F) and once per day weekendsMethod performed is a chemiluminescent microparticle immunoasssay on the [employer] i2000.The range is based on experience at [facility] and users should be aware that target concentrations vary widely depending on concomitant therapy, time post-transplant, and desired degree of immunosuppression. Performed By: #### T ACRO ####[facility] (DEFAULT)[address] [place] [address] CBC,PLATELETSon 09-06-2023 Erythrocyte distribution width (RBC) [Ratio] 13.4 % 10.9 - 14.3 % [facility] Hematocrit (Bld) [Volume fraction] 38.4 % Low 39.6 - 48.8 % [facility] Hemoglobin (Bld) [Mass/Vol] 11.9 g/dL Low 13.4 - 16.8 g/dL [facility] Interpretation and review of laboratory results Abnormal [facility] MCH (RBC) [Entitic mass] 26.6 pg 26.1 - 33.3 pg [facility] MCHC (RBC) [Mass/Vol] 31.0 g/dL Low 31.9 - 36.5 g/dL [facility] MCV (RBC) [Entitic vol] 85.9 fL 79.0 - 94.5 fL [facility] Platelet mean volume (Bld) [Entitic vol] 9.7 fL 8.7 - 12.3 fL [facility] Platelets (Bld) [#/Vol] 181 10*3/uL 146 - 337 K/uL [facility] RBC (Bld) [#/Vol] 4.47 10*6/uL [facility] WBC (Bld) [#/Vol] 4.41 10*3/uL 3.73 - 10. 10 K/uL [facility] Hematocrit (Bld) [Volume fraction] 38.4 % Low 39.6-48.8 [facility] Comment on above: Performed By: #### H [facility] ####[facility] (DEFAULT)[address] [place] [address] Hemoglobin (Bld) [Mass/Vol] 11.9 g/dL Low 13.4-16.8 [facility] Comment on above: Performed By: #### H EMO ####[facility] (DEFAULT)[address] [facility] [place] [address] MCV (RBC) [Entitic vol] 85.9 fL Normal 79.0-94.5 [facility] Comment on above: Performed By: #### H EMO ####[facility] (DEFAULT)[address] [place] [address] Mean Cell Hgb 26.6 pg Normal 26.1-33.3 [facility] Comment on above: Performed By: #### H EMO ####[facility] (DEFAULT)[address] [facility] [place] [address] Mean Cell Hgb Conc 31.0 g/dL Low 31.9-36.5 [facility] Comment on above: Performed By: #### H EMO ####[facility] (DEFAULT)[address] [facility] [place] [address] Platelet mean volume (Bld) [Entitic vol] 9.7 fL Normal 8.7-12.3 [facility] Comment on above: Performed By: #### H EMOGC ####[facility] (DEFAULT)[address] [facility] [place] [address] Platelets (Bld) [#/Vol] 181 10*3/uL Normal 146-337 [facility] Comment on above: Performed By: #### H EMO ####[facility] (DEFAULT)[address] [facility] [place] [address] RBC (Bld) [#/Vol] 4.47 10*6/uL Normal 4.38-5.83 [facility] Comment on above: Performed By: #### H EMO ####[facility] (DEFAULT)[address] [facility] [place] [address] RBC Distribution 13.4 % Normal 10.9-14.3 [facility] Comment on above: Performed By: #### H EMOGC ####[facility] (DEFAULT)[address] [facility] [place] [address] WBC (Bld) [#/Vol] 4.41 10*3/uL Normal 3.73-10.10 [facility] Comment on above: Performed By: #### H EMOGC ####[facility] (DEFAULT)[address] [place] [address], [place] [address] CHEM 7 (LYTES,BUN,CREA,GLUC) on 09-06-2023 Anion gap [Moles/Vol] 14 mmol/L 7 - 17 mmol/L [facility] Chloride [Moles/Vol] 109 mmol/L High 98 - 10 8 mmol/L [facility] CO2 [Moles/Vol] 19 mmol/L Low 21 - 31 mmol/L [facility] Creatinine [Mass/Vol] 1.26 mg/dL 0.70 - 1.30 mg/dL [facility] eGFR, CKD-EPI, Male 69 - PINF [facility] Glucose [Mass/Vol] 114 mg/dL High 70 - 99 mg/dL [facility] Osmolality Calc [Osmolality] 291 [facility] Potassium [Moles/Vol] 4.1 mmol/L 3.5 - 5.0 mmol/L [facility] Sodium [Moles/Vol] 138 mmol/L 135 - 145 mmol/L [facility] Urea nitrogen [Mass/Vol] 16 mg/dL 7 - 25 mg/dL [facility] Urea nitrogen/Creatinine [Mass ratio] 13 mg/mg [facility] Anion gap [Moles/Vol] 14 mmol/L Normal 7-17 [facility] Comment on above: Performed By: #### NATHANIEL RAMÍREZ, HFP ####[facility] (DEFAULT)[address] [place] [address] Chloride [Moles/Vol] 109 mmol/L High 98-108 [facility] Comment on above: Performed By: #### NATHANIEL RAMÍREZ, HFP ####[facility] (DEFAULT)[address] [place] [address] CO2 [Moles/Vol] 19 mmol/L Low 21-31 [facility] Comment on above: Performed By: #### NATHANIEL RAMÍREZ, HFP ####[facility] (DEFAULT)[address] [place] [address] Creatinine [Mass/Vol] 1.26 mg/dL Normal 0.70-1.30 [facility] Comment on above: Performed By: #### NATHANIEL RAMÍREZ, HFP ####[facility] (DEFAULT)[address] [place] [address] GFR/1.73 sq M.predicted among non-blacks MDRD (S/P/Bld) [Vol rate/Area] 69 mL/min/{1.73_m2} Normal >=60 [facility] Comment on above: Result Comment: Repo rted eGFR is based on the CKD-EPI 2020 equation using creatinine, age, and sex. Performed By: #### NATHANIEL RAMÍREZ, HFP ####[facility] (DEFAULT)[address] [place] [address] Glucose [Mass/Vol] 114 mg/dL High 70-99 [facility] Comment on above: Performed By: #### NATHANIEL RAMÍREZ, HFP ####[facility] (DEFAULT)[address] [place] [address] Osmolality [Osmolality] 291 mosm/kg Normal 278-305 [facility] Comment on above: Performed By: #### NATHANIEL RAMÍREZ, HFP ####[facility] (DEFAULT)[address] [place] [address] Potassium [Moles/Vol] 4.1 mmol/L Normal 3.5-5.0 [facility] Comment on above: Performed By: #### NATHANIEL RAMÍREZ, HFP ####[facility] (DEFAULT)[address] [place] [address] Sodium [Moles/Vol] 138 mmol/L Normal 135-145 [facility] Comment on above: Performed By: #### NATHANIEL RAMÍREZ, HFP ####[facility] (DEFAULT)[address] [place] [address] Urea nitrogen [Mass/Vol] 16 mg/dL Normal 7-25 [facility] Comment on above: Performed By: #### NATHANIEL RAMÍREZ, HFP ####[facility] (DEFAULT)[address] [place] [address] Urea nitrogen/Creatinine [Mass ratio] 13 mg/mg Normal [facility] Comment on above: Performed By: #### NATHANIEL RAMÍREZ, HFP ####[facility] (DEFAULT)[address] [place] [address] HEPATIC FUNCTION PANELon Albumin [Mass/Vol] 3.0 g/dL Low 3.5 - 5.0 g/dL [facility] ALP [Catalytic activity/Vol] 115 U/L 32 - 126 U/L [facility] ALT [Catalytic activity/Vol] 25 U/L 10 - 52 U/L [facility] AST [Catalytic activity/Vol] 31 U/L 10 - 39 U/L [facility] Bilirubin [Mass/Vol] 1.0 mg/dL NINF - 1.5 mg/dL [facility] Bilirubin.direct [Mass/Vol] 0.3 mg/dL High NINF - 0.3 mg/dL [facility] Protein [Mass/Vol] 6.3 g/dL Low 6.4 - 8.3 g/dL [facility] Albumin [Mass/Vol] 3.0 g/dL Low 3.5-5.0 [facility] Comment on above: Performed By: #### M MERLE CHM7, HFP ####[facility] (DEFAULT)[address] [facility] [place] [address] ALP [Catalytic activity/Vol] 115 U/L Normal 32-126 [facility] Comment on above: Performed By: #### M MERLE CHM7, HFP ####[facility] (DEFAULT)[address] [facility] [place] [address] ALT [Catalytic activity/Vol] 25 U/L Normal 10-52 [facility] Comment on above: Performed By: #### M MERLE CHM7, HFP ####[facility] (DEFAULT)[address] [facility] [place] [address] AST [Catalytic activity/Vol] 31 U/L Normal 10-39 [facility] Comment on above: Performed By: #### M MERLE, CHM7, HFP ####[facility] (DEFAULT)[address] [facility] [place] [address] Bilirubin [Mass/Vol] 1.0 mg/dL Normal <1.5 [facility] Comment on above: Performed By: #### NATHANIEL RAMÍREZ, HFP ####[facility] (DEFAULT)[address] [facility] [place] [address] Bilirubin.indirect [Mass/Vol] 0.3 mg/dL High <0.3 [facility] Comment on above: Performed By: #### NATHANIEL RAMÍREZ, HFP ####[facility] (DEFAULT)[address] [facility] [place] [address] Protein [Mass/Vol] 6.3 g/dL Low 6.4-8.3 [facility] Comment on above: Performed By: #### NATHANIEL RAMÍREZ, HFP ####[facility] (DEFAULT)[address] [facility] [place] [address] MAGNESIUMon 09-06-2023 Interpretation and review of laboratory results Normal [facility] Magnesium [Mass/Vol] 2.0 mg/dL 1.6 - 2 .6 mg/dL [facility] Magnesium [Mass/Vol] 2.0 mg/dL Normal 1.6-2.6 [facility] Comment on above: Performed By: #### NATHANIEL RAMÍREZ, HFP ####[facility] (DEFAULT)[address] [facility] [place] [address] No Panel Informationon 09-06 Interpretation and review of laboratory results Abnormal [facility] TACROLIMUS LEVEL, TROUGH ([place] E DRUG LEVEL)on 09-06-2023 Interpretation and review of laboratory results Normal [facility] Tacrolimus (Bld) [Mass/Vol] 6.7 ng/mL [facility] Tacrolimus, Trough 6.7 ng/mL Normal Bone Susana ow Transplant: 4.0-12.0, Therapeutic: 5.0-15.0 [facility] Comment on above: Order Comment: Pleas e draw at specified interval PRIOR to dose. Do not hold dose to wait for level. Specimens batched twice per day, (M-F) and once per day weekendsMethod performed is a chemiluminescent microparticle immunoasssay on the [employer] i2000.The range is based on experience at [facility] and users should be aware that target concentrations vary widely depending on concomitant therapy, time post-transplant, and desired degree of immunosuppression. Performed By: #### T ACRO ####[facility] (DEFAULT)[address] [place] [address] CBC,PLATELETSon 09-05-2023 Erythrocyte distribution width (RBC) [Ratio] 13.5 % 10.9 - 14.3 % [facility] Hematocrit (Bld) [Volume fraction] 35.6 % Low 39.6 - 48.8 % [facility] Hemoglobin (Bld) [Mass/Vol] 11.4 g/dL Low 13.4 - 16.8 g/dL [facility] Interpretation and review of laboratory results Abnormal [facility] MCH (RBC) [Entitic mass] 27.5 pg 26.1 - 33.3 pg [facility] MCHC (RBC) [Mass/Vol] 32.0 g/dL 31.9 - 36.5 g/dL [facility] MCV (RBC) [Entitic vol] 86.0 fL 79.0 - 94.5 fL [facility] Platelet mean volume (Bld) [Entitic vol] 10.0 fL 8.7 - 12.3 fL [facility] Platelets (Bld) [#/Vol] 170 10*3/uL 146 - 337 K/uL [facility] RBC (Bld) [#/Vol] 4.14 10*6/uL Low [facility] WBC (Bld) [#/Vol] 4.24 10*3/uL 3.73 - 10. 10 K/uL [facility] Hematocrit (Bld) [Volume fraction] 35.6 % Low 39.6-48.8 [facility] Comment on above: Performed By: #### H [facility] ####[facility] (DEFAULT)[address] [facility] [place] [address] Hemoglobin (Bld) [Mass/Vol] 11.4 g/dL Low 13.4-16.8 [facility] Comment on above: Performed By: #### H EMOGC ####U [facility] (DEFAULT)[address] [facility] [place] [address] MCV (RBC) [Entitic vol] 86.0 fL Normal 79.0-94.5 [facility] Comment on above: Performed By: #### H EMOGC ####[facility] (DEFAULT)[address] [facility] [place] [address] Mean Cell Hgb 27.5 pg Normal 26.1-33.3 [facility] Comment on above: Performed By: #### H EMOGC ####[facility] (DEFAULT)[address] [facility] [place] [address] Mean Cell Hgb Conc 32.0 g/dL Normal 31.9-36.5 [facility] Comment on above: Performed By: #### H EMOGC ####[facility] (DEFAULT)[address] [facility] [place] [address] Platelet mean volume (Bld) [Entitic vol] 10.0 fL Normal 8.7-12.3 [facility] Comment on above: Performed By: #### H EMOGC ####[facility] (DEFAULT)[address] [facility] [place] [address] Platelets (Bld) [#/Vol] 170 10*3/uL Normal 146-337 [facility] Comment on above: Performed By: #### H EMOGC ####[facility] (DEFAULT)[address] [facility] [place] [address] RBC (Bld) [#/Vol] 4.14 10*6/uL Low 4.38-5.83 [facility] Comment on above: Performed By: #### H EMOGC ####[facility] (DEFAULT)[address] [place] [address] RBC Distribution 13.5 % Normal 10.9-14.3 [facility] Comment on above: Performed By: #### H [facility] ####[facility] (DEFAULT)[address] [place] [address] WBC (Bld) [#/Vol] 4.24 10*3/uL Normal 3.73-10.10 [facility] Comment on above: Performed By: #### H [facility] ####[facility] (DEFAULT)[address] [place] [address] CHEM 7 (LYTES,BUN,CREA,GLUC) on 09-05-2023 Anion gap [Moles/Vol] 12 mmol/L 7 - 17 mmol/L [facility] Chloride [Moles/Vol] 107 mmol/L 98 - 10 8 mmol/L [facility] CO2 [Moles/Vol] 20 mmol/L Low 21 - 31 mmol/L [facility] Creatinine [Mass/Vol] 1.43 mg/dL High 0.70 - 1.30 mg/dL [facility] eGFR, CKD-EPI, Male 59 Low - PINF [facility] Glucose [Mass/Vol] 111 mg/dL High 70 - 99 mg/dL [facility] Osmolality Calc [Osmolality] 286 [facility] Potassium [Moles/Vol] 4.2 mmol/L 3.5 - 5.0 mmol/L [facility] Sodium [Moles/Vol] 135 mmol/L 135 - 145 mmol/L [facility] Urea nitrogen [Mass/Vol] 18 mg/dL 7 - 25 mg/dL [facility] Urea nitrogen/Creatinine [Mass ratio] 13 mg/mg [facility] Anion gap [Moles/Vol] 12 mmol/L Normal 7-17 [facility] Comment on above: Performed By: #### H FP, CHM7, MGO ####[facility] (DEFAULT)[address] [place] [address] Chloride [Moles/Vol] 107 mmol/L Normal 98-108 [facility] Comment on above: Performed By: #### H NATHANIEL MONCADA, MGO ####[facility] (DEFAULT)[address] [facility] [place] [address] CO2 [Moles/Vol] 20 mmol/L Low 21-31 [facility] Comment on above: Performed By: #### H NATHANIEL MONCADA, MGO ####[facility] (DEFAULT)[address] [facility] [place] [address] Creatinine [Mass/Vol] 1.43 mg/dL High 0.70-1.30 [facility] Comment on above: Performed By: #### H NATHANIEL MONCADA, MGO ####U [facility] (DEFAULT)[address] [facility] [place] [address] GFR/1.73 sq M.predicted among non-blacks MDRD (S/P/Bld) [Vol rate/Area] 59 mL/min/{1.73_m2} Low >=60 [facility] Comment on above: Result Comment: Repo rted eGFR is based on the CKD-EPI 2020 equation using creatinine, age, and sex. Performed By: #### H NATHANIEL MONCADA, MGO ####[facility] (DEFAULT)[address] [facility] [place] [address] Glucose [Mass/Vol] 111 mg/dL High 70-99 [facility] Comment on above: Performed By: #### H NATHANIEL MONCADA, MGO ####[facility] (DEFAULT)[address] [facility] [place] [address] Osmolality [Osmolality] 286 mosm/kg Normal 278-305 [facility] Comment on above: Performed By: #### H NATHANIEL MONCADA, MGO ####[facility] (DEFAULT)[address] [facility] [place] [address] Potassium [Moles/Vol] 4.2 mmol/L Normal 3.5-5.0 [facility] Comment on above: Performed By: #### H ANTWAN, CHM7, MGO ####[facility] (DEFAULT)[address] [facility] [place] [address] Sodium [Moles/Vol] 135 mmol/L Normal 135-145 [facility] Comment on above: Performed By: #### H ANTWAN, CHM7, MGO ####[facility] (DEFAULT)[address] [facility] [place] [address] Urea nitrogen [Mass/Vol] 18 mg/dL Normal 7-25 [facility] Comment on above: Performed By: #### H ANTWAN, CHM7, MGO ####[facility] (DEFAULT)[address] [facility] [place] [address] Urea nitrogen/Creatinine [Mass ratio] 13 mg/mg Normal [facility] Comment on above: Performed By: #### H ANTWAN, CHM7, MGO ####[facility] (DEFAULT)[address] [facility] [place] [address] CONTINUOUS CARDIAC MONITORIN G STRIPon 09-05-2023 [facility] HEPATIC FUNCTION PANELon Albumin [Mass/Vol] 2.8 g/dL Low 3.5 - 5.0 g/dL [facility] ALP [Catalytic activity/Vol] 103 U/L 32 - 126 U/L [facility] ALT [Catalytic activity/Vol] 26 U/L 10 - 52 U/L [facility] AST [Catalytic activity/Vol] 38 U/L 10 - 39 U/L [facility] Bilirubin [Mass/Vol] 0.9 [facility]/dL [facility] Bilirubin.direct [Mass/Vol] 0.1 mg/dL NINF - 0.3 mg/dL [facility] Protein [Mass/Vol] 6.1 g/dL Low 6.4 - 8.3 g/dL [facility] Albumin [Mass/Vol] 2.8 g/dL Low 3.5-5.0 [facility] Comment on above: Performed By: #### H FP, CHM7, MGO ####[facility] (DEFAULT)[address] [place] [address] ALP [Catalytic activity/Vol] 103 U/L Normal 32-126 [facility] Comment on above: Performed By: #### H FP, CHM7, MGO ####[facility] (DEFAULT)[address] [place] [address] ALT [Catalytic activity/Vol] 26 U/L Normal 10-52 [facility] Comment on above: Performed By: #### H FP, CHM7, MGO ####[facility] (DEFAULT)[address] [place] [address] AST [Catalytic activity/Vol] 38 U/L Normal 10-39 [facility] Comment on above: Performed By: #### H FP, CHM7, MGO ####[facility] (DEFAULT)[address] [place] [address] Bilirubin [Mass/Vol] 0.9 mg/dL Normal <1.5 [facility] Comment on above: Performed By: #### H FP, CHM7, MGO ####[facility] (DEFAULT)[address] [place] [address] Bilirubin.indirect [Mass/Vol] 0.1 mg/dL Normal <0.3 [facility] Comment on above: Performed By: #### H FP, CHM7, MGO ####[facility] (DEFAULT)[address] [place] [address] Protein [Mass/Vol] 6.1 g/dL Low 6.4-8.3 [facility] Comment on above: Performed By: #### H FP, CHM7, MGO ####[facility] (DEFAULT)[address] [place] [address] HISTOPLASMA ANTIGEN, FLUIDon 09-05-2023 FH SOURCE BAL RML [facility] Histo FLD interpretation Negative [facility] Histoplasma Antigen, FLUID Not detected ng/mL [facility] HISTOPLASMA CAPSULATUM/BLAST OMYCES SPECIES,PCR FLUIDon 09-05-2023 HISTO/BLASTO RESULT Negative Not Applicable [facility] Specimen source Nom (Unsp spec) BAL RML [facility] IMMUNOPHENOTYPING, TISSUE/FL UIDon 09-05-2023 BKR DX CODE Use Ordering [facility] Flow Interpretation See Comment [facility] Flow Interpreted by: Yossi Perla MD, PhD [facility] MAGNESIUMon 09-05-2023 Interpretation and review of laboratory results Normal [facility] Magnesium [Mass/Vol] 1.7 mg/dL 1.6 - 2 .6 mg/dL [facility] Magnesium [Mass/Vol] 1.7 mg/dL Normal 1.6-2.6 [facility] Comment on above: Performed By: #### H , M7, MGO ####[facility] (DEFAULT)[address] [place] [address] No Panel Informationon 09-05 Interpretation and review of laboratory results Abnormal [facility] TACROLIMUS LEVEL, TROUGH ([place] E DRUG LEVEL)Ordered By: Raymundo Mehta on 09-05-2023 Interpretation and review of laboratory results Normal [facility] Tacrolimus (Bld) [Mass/Vol] 5.3 ng/mL [facility] TACROLIMUS LEVEL, TROUGH ([place] E DRUG LEVEL)on 09-05-2023 Tacrolimus, Trough 5.3 ng/mL Normal Bone Susana ow Transplant: 4.0-12.0, Therapeutic: 5.0-15.0 [facility] Comment on above: Order Comment: Pleas e draw at specified interval PRIOR to dose. Do not hold dose to wait for level. Specimens batched twice per day, (M-F) and once per day weekendsMethod performed is a chemiluminescent microparticle immunoasssay on the [employer] i2000.The range is based on experience at [facility] and users should be aware that target concentrations vary widely depending on concomitant therapy, time post-transplant, and desired degree of immunosuppression. Performed By: #### T ACRO ####U [facility] (DEFAULT)[address] [place] [address] ARTERIAL BLOOD GAS (FULL GOSS EL)on 09-04-2023 Base excess Calc (Bld) [Moles/Vol] -1.2000 mmol/L -3.0 - 3.0 mmol/L [facility] Calcium.ionized (Bld) [Mass/Vol] 4.79 mg/dL 4.60 - 5.30 mg/dL [facility] Carboxyhemoglobin (Bld) [Mass fraction] 0.7 % NINF - 1.5 % [facility] CO2 (Bld) [Partial pressure] 30 mm[Hg] Low [facility] Glucose [Mass/Vol] 159 mg/dL High 70 - 99 mg/dL [facility] HCO3 (Bld) [Moles/Vol] 22 mmol/L 22 - 28 mmol/L [facility] Hematocrit (Bld) [Volume fraction] 38.0 % Low 40.2 - 50.4 % [facility] Hemoglobin (Bld) [Mass/Vol] 12.6 g/dL Low 13.4 - 16.8 g/dL [facility] Interpretation and review of laboratory results Abnormal [facility] Lactate [Moles/Vol] 2.0 mmol/L High 0.5 - 1. 6 mmol/L [facility] Methemoglobin (Bld) [Mass fraction] 0.0 % NINF - 1.5 % [facility] Oxygen (Bld) [Partial pressure] 62 mm[Hg] Low [facility] Oxygen saturation in Blood 92 % Low 94 - 98 % [facility] Oxyhemoglobin 91 % Low 94 - 98 % [facility] pH (Bld) 7.48 [pH] High 7.35 - 7.45 [facility] Potassium [Moles/Vol] 4.2 mmol/L 3.5 - 5.0 mmol/L [facility] Sodium [Moles/Vol] 130 mmol/L Low 135 - 145 mmol/L [facility] Specimen source Nom (Unsp spec) Arterial [facility] Base Excess -1.2 mmol/L Normal -3.0-3.0 [facility] Comment on above: Performed By: #### G YASMINE ####[facility] (DEFAULT)[address] [place] [address], [place] [address] Carboxyhemoglobin 0.7 % Normal <=1.5 [facility] Comment on above: Performed By: #### Vale UNDERWOOD ####[facility] (DEFAULT)[address] [place] [address], [place] [address] Glucose [Mass/Vol] 159 mg/dL High 70-99 [facility] Comment on above: Performed By: #### Vale UNDERWOOD ####[facility] (DEFAULT)[address] [place] [address], [place] [address] HCO3 (Bld) [Moles/Vol] 22 mmol/L Normal 22-28 [facility] Comment on above: Performed By: #### G YASMINE ####[facility] (DEFAULT)[address] [place] [address], [place] [address] Hematocrit (Bld) [Volume fraction] 38.0 % Low 40.2-50.4 [facility] Comment on above: Performed By: #### G YASMINE ####[facility] (DEFAULT)[address] [place] [address], [place] [address] Hemoglobin (Bld) [Mass/Vol] 12.6 g/dL Low 13.4-16.8 [facility] Comment on above: Performed By: #### G ASALL ####[facility] (DEFAULT)[address] [place] [address] Ionized Calcium, Whole Blood 4.79 mg/dL Normal 4.60-5.30 [facility] Comment on above: Performed By: #### Vale UNDERWOOD ####[facility] (DEFAULT)[address] [place] [address] Lactate, Whole Blood 2.0 mmol/L High 0.5-1.6 [facility] Comment on above: Performed By: #### Vale UNDERWOOD ####[facility] (DEFAULT)[address] [place] [address] Methemoglobin 0.0 % Normal <=1.5 [facility] Comment on above: Performed By: #### Vale UNDERWOOD ####[facility] (DEFAULT)[address] [facility] [place] [address] Oxyhemoglobin 91 % Low 94-98 [facility] Comment on above: Performed By: #### Vale UNDERWOOD ####[facility] (DEFAULT)[address] [facility] [address] pCO2 30 mm Hg Low 32-48 [facility] Comment on above: Performed By: #### Vale UNDERWOOD ####[facility] (DEFAULT)[address] [place] [address] pH (Bld) 7.48 [pH] High 7.35-7.45 [facility] Comment on above: Performed By: #### Vale UNDERWOOD ####[facility] (DEFAULT)[address] [place] [address] pO2 62 mm Hg Low 83-108 [facility] Comment on above: Performed By: #### Vale UNDERWOOD ####[facility] (DEFAULT)[address] [place] [address] Potassium [Moles/Vol] 4.2 mmol/L Normal 3.5-5.0 [facility] Comment on above: Performed By: #### Vale UNDERWOOD ####[facility] (DEFAULT)[address] [facility] [place] [address] sO2 92 % Low 94-98 [facility] Comment on above: Performed By: #### G YASMINE ####[facility] (DEFAULT)[address] [facility] [place] [address] Sodium [Moles/Vol] 130 mmol/L Low 135-145 [facility] Comment on above: Performed By: #### G YASMINE ####[facility] (DEFAULT)[address] [facility] [place] [address] Specimen type Nom (Spec) Arterial Normal [facility] Comment on above: Performed By: #### G YASMINE ####[facility] (DEFAULT)[address] [facility] [place] [address] Bacteria identified Respirat ory culture Nom (Unsp spec)on 09-04-2023 Bacteria identified Cx Nom (Unsp spec) NO GROWTH DAY 2 OF 2 [facility] Microscopic observation Other stain Nom (Unsp spec) Cytocentrifuge preparation [facility] Microscopic observation Other stain Nom (Unsp spec) Neutrophils, Rare [facility] Microscopic observation Other stain Nom (Unsp spec) Red Blood Cells Present [facility] Microscopic observation Other stain Nom (Unsp spec) No organisms seen [facility] Bacteria identified Respirat ory culture Nom (Unsp spec)Ordered By: Jose Salgado on 09-04-2023 Bacteria identified Cx Nom (Unsp spec) NO GROWTH DAY 2 OF 2 [facility] Microscopic observation Other stain Nom (Unsp spec) Cytocentrifuge preparation [facility] Microscopic observation Other stain Nom (Unsp spec) Neutrophils, Moderate [facility] Microscopic observation Other stain Nom (Unsp spec) Red Blood Cells Present [facility] Microscopic observation Other stain Nom (Unsp spec) No organisms seen [facility] CBC,PLATELETSon 09-04-2023 Erythrocyte distribution width (RBC) [Ratio] 13.2 % 10.9 - 14.3 % [facility] Hematocrit (Bld) [Volume fraction] 38.7 % Low 39.6 - 48.8 % [facility] Hemoglobin (Bld) [Mass/Vol] 12.3 g/dL Low 13.4 - 16.8 g/dL [facility] Interpretation and review of laboratory results Abnormal [facility] MCH (RBC) [Entitic mass] 27.9 pg 26.1 - 33.3 pg [facility] MCHC (RBC) [Mass/Vol] 31.8 g/dL Low 31.9 - 36.5 g/dL [facility] MCV (RBC) [Entitic vol] 87.8 fL 79.0 - 94.5 fL [facility] Platelet mean volume (Bld) [Entitic vol] 9.8 fL 8.7 - 12.3 fL [facility] Platelets (Bld) [#/Vol] 173 10*3/uL 146 - 337 K/uL [facility] RBC (Bld) [#/Vol] 4.41 10*6/uL [facility] WBC (Bld) [#/Vol] 4.57 10*3/uL 3.73 - 10. 10 K/uL [facility] Hematocrit (Bld) [Volume fraction] 38.7 % Low 39.6-48.8 [facility] Comment on above: Performed By: #### H [facility] ####[facility] (DEFAULT)[address] [place] [address] Hemoglobin (Bld) [Mass/Vol] 12.3 g/dL Low 13.4-16.8 [facility] Comment on above: Performed By: #### H [facility] ####[facility] (DEFAULT)[address] [place] [address] MCV (RBC) [Entitic vol] 87.8 fL Normal 79.0-94.5 [facility] Comment on above: Performed By: #### H [facility] ####[facility] (DEFAULT)[address] [place] [address] Mean Cell Hgb 27.9 pg Normal 26.1-33.3 [facility] Comment on above: Performed By: #### H EMOGC ####[facility] (DEFAULT)[address] [place] [address] Mean Cell Hgb Conc 31.8 g/dL Low 31.9-36.5 [facility] Comment on above: Performed By: #### H EMOGC ####[facility] (DEFAULT)[address] [place] [address] Platelet mean volume (Bld) [Entitic vol] 9.8 fL Normal 8.7-12.3 [facility] Comment on above: Performed By: #### H EMOGC ####[facility] (DEFAULT)[address] [facility] [place] [address] Platelets (Bld) [#/Vol] 173 10*3/uL Normal 146-337 [facility] Comment on above: Performed By: #### H EMOGC ####[facility] (DEFAULT)[address] [facility] [place] [address] RBC (Bld) [#/Vol] 4.41 10*6/uL Normal 4.38-5.83 [facility] Comment on above: Performed By: #### H EMOGC ####[facility] (DEFAULT)[address] [place] [address] RBC Distribution 13.2 % Normal 10.9-14.3 [facility] Comment on above: Performed By: #### H EMOGC ####[facility] (DEFAULT)[address] [facility] [place] [address] WBC (Bld) [#/Vol] 4.57 10*3/uL Normal 3.73-10.10 [facility] Comment on above: Performed By: #### H EMOGC ####[facility] (DEFAULT)[address] [place] [address] CHEM 7 (LYTES,BUN,CREA,GLUC) on 09-04-2023 Anion gap [Moles/Vol] 16 mmol/L 7 - 17 mmol/L [facility] Chloride [Moles/Vol] 104 mmol/L 98 - 10 8 mmol/L [facility] CO2 [Moles/Vol] 18 mmol/L Low 21 - 31 mmol/L [facility] Creatinine [Mass/Vol] 1.22 mg/dL 0.70 - 1.30 mg/dL [facility] eGFR, CKD-EPI, [facility] 71 - [facility] Glucose [Mass/Vol] 124 mg/dL High 70 - 99 mg/dL [facility] Osmolality Calc [Osmolality] 284 [facility] Potassium [Moles/Vol] 3.9 mmol/L 3.5 - 5.0 mmol/L [facility] Sodium [Moles/Vol] 134 mmol/L Low 135 - 145 mmol/L [facility] Urea nitrogen [Mass/Vol] 15 mg/dL 7 - 25 mg/dL [facility] [place] Urea nitrogen/Creatinine [Mass ratio] 12 mg/mg [facility] [place] Anion gap [Moles/Vol] 16 mmol/L Normal 7-17 [facility] Comment on above: Performed By: #### TJ RAMÍREZ7, HFP ####[facility] (DEFAULT)[address] [place] [address] Chloride [Moles/Vol] 104 mmol/L Normal 98-108 [facility] Comment on above: Performed By: #### Rod BLOOM CHM7, HFP ####[facility] (DEFAULT)[address] [place] [address] CO2 [Moles/Vol] 18 mmol/L Low 21-31 [facility] Comment on above: Performed By: #### Rod BLOOM CHM7, HFP ####[facility] (DEFAULT)[address] [place] [address] Creatinine [Mass/Vol] 1.22 mg/dL Normal 0.70-1.30 [facility] Comment on above: Performed By: #### NATHANIEL RAMÍREZ, HFP ####[facility] (DEFAULT)[address] [place] [address] GFR/1.73 sq M.predicted among non-blacks MDRD (S/P/Bld) [Vol rate/Area] 71 mL/min/{1.73_m2} Normal >=60 [facility] Comment on above: Result Comment: Repo rted eGFR is based on the CKD-EPI 2020 equation using creatinine, age, and sex. Performed By: #### NATHANIEL RAMÍREZ, HFP ####[facility] (DEFAULT)[address] [facility] [place] [address] Glucose [Mass/Vol] 124 mg/dL High 70-99 [facility] Comment on above: Performed By: #### NATHANIEL RMAÍREZ, HFP ####[facility] (DEFAULT)[address] [facility] [place] [address] Osmolality [Osmolality] 284 mosm/kg Normal 278-305 [facility] Comment on above: Performed By: #### NATHANIEL RAMÍREZ, HFP ####[facility] (DEFAULT)[address] [place] [address] Potassium [Moles/Vol] 3.9 mmol/L Normal 3.5-5.0 [facility] Comment on above: Performed By: #### NATHANIEL RAMÍREZ, HFP ####[facility] (DEFAULT)[address] [place] [address] Sodium [Moles/Vol] 134 mmol/L Low 135-145 [facility] Comment on above: Performed By: #### NATHANIEL RAMÍREZ, HFP ####[facility] (DEFAULT)[address] [place] [address] Urea nitrogen [Mass/Vol] 15 mg/dL Normal 7-25 [facility] Comment on above: Performed By: #### M NATHANIEL BLOOM, HFP ####[facility] (DEFAULT)[address] [place] [address] Urea nitrogen/Creatinine [Mass ratio] 12 mg/mg Normal [facility] Comment on above: Performed By: #### M NATHANIEL BLOOM, HFP ####[facility] (DEFAULT)[address] [place] [address] CMV PCR,FLUIDS,URINE,EYE ETC on 09-04-2023 Specimen source Nom (Unsp spec) BAL LLL [facility] Specimen source Nom (Unsp spec) BAL RML [facility] HEPATIC FUNCTION PANELon Albumin [Mass/Vol] 3.0 g/dL Low 3.5 - 5.0 g/dL [facility] ALP [Catalytic activity/Vol] 112 U/L 32 - 126 U/L [facility] ALT [Catalytic activity/Vol] 22 U/L 10 - 52 U/L [facility] AST [Catalytic activity/Vol] 30 U/L 10 - 39 U/L [facility] Bilirubin [Mass/Vol] 1.2 mg/dL NINF - 1.5 mg/dL [facility] Bilirubin.direct [Mass/Vol] 0.4 mg/dL High NINF - 0.3 mg/dL [facility] Protein [Mass/Vol] 6.4 g/dL 6.4 - 8.3 g/dL [facility] Albumin [Mass/Vol] 3.0 g/dL Low 3.5-5.0 [facility] Comment on above: Performed By: #### M NATHANIEL BLOOM, HFP ####[facility] (DEFAULT)[address] [place] [address] ALP [Catalytic activity/Vol] 112 U/L Normal 32-126 [facility] Comment on above: Performed By: #### M NATHANIEL BLOOM, HFP ####[facility] (DEFAULT)[address] [place] [address] ALT [Catalytic activity/Vol] 22 U/L Normal 10-52 [facility] Comment on above: Performed By: #### NATHANIEL RAMÍREZ, HFP ####[facility] (DEFAULT)[address] [place] [address] AST [Catalytic activity/Vol] 30 U/L Normal 10-39 [facility] Comment on above: Performed By: #### NATHANIEL RAMÍREZ, HFP ####[facility] (DEFAULT)[address] [place] [address] Bilirubin [Mass/Vol] 1.2 mg/dL Normal <1.5 [facility] Comment on above: Performed By: #### NATHANIEL RAMÍREZ, HFP ####[facility] (DEFAULT)[address] [place] [address] Bilirubin.indirect [Mass/Vol] 0.4 mg/dL High <0.3 [facility] Comment on above: Performed By: #### NATHANIEL RAMÍREZ, HFP ####[facility] (DEFAULT)[address] [place] [address] Protein [Mass/Vol] 6.4 g/dL Normal 6.4-8.3 [facility] Comment on above: Performed By: #### NATHANIEL RAMÍREZ, HFP ####[facility] (DEFAULT)[address] [place] [address] LEGIONELLA PCRon 09-04-2023 Legionella sp rRNA Probe Ql (Unsp spec) Negative Not Applicable [facility] Specimen source Nom (Unsp spec) BAL RML [facility] - Microbiology an d Antimicrobial susceptibilityon 09-04-2023 CMV DNA ESTELITA+probe Ql (Unsp spec) Negative Negative [facility] MAGNESIUMon 09-04-2023 Magnesium [Mass/Vol] 1.4 mg/dL Low 1.6 - 2 .6 mg/dL [facility] Magnesium [Mass/Vol] 1.4 mg/dL Low 1.6-2.6 [facility] Comment on above: Performed By: #### M , CHM7, [facility] ####[facility] (DEFAULT)[address] [place] [address] No Panel Informationon 09-04 Annotation comment [Interpretation] Narrative DNR [facility] PN Report Status DNR [facility] Pneumocystis jiroveci,PCR result Negative Not Applicable [facility] Interpretation and review of laboratory results Abnormal [facility] PNEUMOCYSTIS JIROVECI,PCRon 09-04-2023 Specimen source Nom (Unsp spec) BAL LLL [facility] Specimen source Nom (Unsp spec) BAL RML [facility] Portable XR Chest Viewson RADIOLOGY RADIOLOGY [facility] Radiology Study observation (narrative) [facility] Portable XR Chest ViewsOrder ed By: Joanie Nugent on 09-04-2023 [facility] Work Phone: TACROLIMUS LEVEL, TROUGH (TX E DRUG LEVEL)on 09-04-2023 Interpretation and review of laboratory results Abnormal [facility] Tacrolimus (Bld) [Mass/Vol] 3.6 ng/mL Low [facility] Tacrolimus, Trough 3.6 ng/mL Low Bone Susana ow Transplant: 4.0-12.0, Therapeutic: 5.0-15.0 [facility] Comment on above: Order Comment: Pleas e draw at specified interval PRIOR to dose. Do not hold dose to wait for level. Specimens batched twice per day, (M-F) and once per day weekendsMethod performed is a chemiluminescent microparticle immunoasssay on the [employer] [facility] [employer] i2000.The range is based on experience at [facility] and users should be aware that target concentrations vary widely depending on concomitant therapy, time post-transplant, and desired degree of immunosuppression. Performed By: #### T ACRO ####[facility] (DEFAULT)[address] [place] [address] XR CHEST PORTABLEon 09-04-20 XR CHEST PORTABLE Normal [facility] ASPERGILLUS ANTIGEN, BALon 1 Galactomannan Ag IA Qn (Unsp spec) <0.500 NINF [facility] Galactomannan Ag IA Qn (Unsp spec) <0.500 NINF [facility] BAL CONSULTOrdered By: Noa Peralta on 09-03-2023 ALVEOLAR MACROPHAGES 32 % [facility] Work Phone: Bal comments Correlation with microbiology stains and cultures is recommended. [facility] Work Phone: Bal Diff Quik Stain Quality Check Acceptable [facility] Work Phone: BKR BAL INTERPRETATION Cellular specimen comprised of alveolar macrophages and small lymphocytes. No definitive microorganisms are observed. Moderate degenerative changes. [facility] Work Phone: BKR DX CODE Use Ordering [facility] Work Phone: Eosinophils Patterson stain Ql (Unsp spec) 0 % [facility] Work Phone: Lymphocytes/100 WBC (Bld) 57 % [facility] Work Phone: Neutrophils/100 WBC Manual cnt (Bronch spec) 11 % [facility] Work Phone: Pathologist review Jame (Unsp spec) [Interp] Leonardo Peralta MD [facility] Work Phone: [facility] Work Phone: BAL CONSULTon 09-03-2023 ALVEOLAR MACROPHAGES 33 % [facility] Bal comments Correlation with microbiology stains and cultures is recommended. Correlation with viral studies is recommended. [facility] Bal Diff Quik Stain Quality Check Acceptable [facility] BKR BAL INTERPRETATION Cellular specimen comprised of alveolar macrophages and small lymphocytes. No definitive microorganisms are observed. Rare degenerating cells with changes suggestive of viral cytopathic effect are noted. Moderate degenerative changes. [facility] BKR DX CODE Use Ordering [facility] Eosinophils Patterson stain Ql (Unsp spec) 0 % [facility] Lymphocytes/100 WBC (Bld) 49 % [facility] Neutrophils/100 WBC Manual cnt (Bronch spec) 18 % [facility] Pathologist review Jame (Unsp spec) [Interp] Leonardo Peralta MD [facility] BRONCHOSCOPYon 09-03-2023 LAB, [facility] CBC,PLATELETSon 09-03-2023 Erythrocyte distribution width (RBC) [Ratio] 13.4 % 10.9 - 14.3 % [facility] Hematocrit (Bld) [Volume fraction] 39.6 % 39.6 - 48.8 % [facility] Hemoglobin (Bld) [Mass/Vol] 12.8 g/dL Low 13.4 - 16.8 g/dL [facility] Interpretation and review of laboratory results Abnormal [facility] MCH (RBC) [Entitic mass] 27.8 pg 26.1 - 33.3 pg [facility] MCHC (RBC) [Mass/Vol] 32.3 g/dL 31.9 - 36.5 g/dL [facility] MCV (RBC) [Entitic vol] 85.9 fL 79.0 - 94.5 fL [facility] Platelet mean volume (Bld) [Entitic vol] 9.4 fL 8.7 - 12.3 fL [facility] Platelets (Bld) [#/Vol] 222 10*3/uL 146 - 337 K/uL [facility] RBC (Bld) [#/Vol] 4.61 10*6/uL [facility] WBC (Bld) [#/Vol] 4.36 10*3/uL 3.73 - 10. 10 K/uL [facility] Hematocrit (Bld) [Volume fraction] 39.6 % Normal 39.6-48.8 [facility] Comment on above: Performed By: #### H EMOGC ####[facility] (DEFAULT)[address] [facility] [place] [address] Hemoglobin (Bld) [Mass/Vol] 12.8 g/dL Low 13.4-16.8 [facility] Comment on above: Performed By: #### H EMOGC ####[facility] (DEFAULT)[address] [facility] [place] [address] MCV (RBC) [Entitic vol] 85.9 fL Normal 79.0-94.5 [facility] Comment on above: Performed By: #### H EMOGC ####[facility] (DEFAULT)[address] [facility] [place] [address] Mean Cell Hgb 27.8 pg Normal 26.1-33.3 [facility] Comment on above: Performed By: #### H EMOGC ####[facility] (DEFAULT)[address] [facility] [place] [address] Mean Cell Hgb Conc 32.3 g/dL Normal 31.9-36.5 [facility] Comment on above: Performed By: #### H EMOGC ####[facility] (DEFAULT)[address] [facility] [place] [address] Platelet mean volume (Bld) [Entitic vol] 9.4 fL Normal 8.7-12.3 [facility] Comment on above: Performed By: #### H EMOGC ####[facility] (DEFAULT)[address] [facility] [place] [address] Platelets (Bld) [#/Vol] 222 10*3/uL Normal 146-337 [facility] Comment on above: Performed By: #### H EMOGC ####[facility] (DEFAULT)[address] [facility] [place] [address] RBC (Bld) [#/Vol] 4.61 10*6/uL Normal 4.38-5.83 [facility] Comment on above: Performed By: #### H [facility] ####[facility] (DEFAULT)[address] [place] [address] RBC Distribution 13.4 % Normal 10.9-14.3 [facility] Comment on above: Performed By: #### H [facility] ####[facility] (DEFAULT)[address] [place] [address] WBC (Bld) [#/Vol] 4.36 10*3/uL Normal 3.73-10.10 [facility] Comment on above: Performed By: #### H [facility] ####[facility] (DEFAULT)[address] [place] [address] CHEM 7 (LYTES,BUN,CREA,GLUC) on 09-03-2023 Anion gap [Moles/Vol] 12 mmol/L 7 - 17 mmol/L [facility] Chloride [Moles/Vol] 104 mmol/L 98 - 10 8 mmol/L [facility] CO2 [Moles/Vol] 24 mmol/L 21 - 31 mmol/L [facility] Creatinine [Mass/Vol] 1.20 mg/dL 0.70 - 1.30 mg/dL [facility] eGFR, CKD-EPI, Male 73 - [facility]F [facility] Glucose [Mass/Vol] 112 mg/dL High 70 - 99 mg/dL [facility] Osmolality Calc [Osmolality] 288 [facility] Potassium [Moles/Vol] 4.1 mmol/L 3.5 - 5.0 mmol/L [facility] Sodium [Moles/Vol] 136 mmol/L 135 - 145 mmol/L [facility] Urea nitrogen [Mass/Vol] 17 mg/dL 7 - 25 mg/dL [facility] Urea nitrogen/Creatinine [Mass ratio] 14 mg/mg [facility] Anion gap [Moles/Vol] 12 mmol/L Normal 7-17 [facility] Comment on above: Performed By: #### M NATHANIEL BLOOM, HFP ####[facility] (DEFAULT)[address] [facility] [place] [address] Chloride [Moles/Vol] 104 mmol/L Normal 98-108 [facility] Comment on above: Performed By: #### M NATHANIEL BLOOM, HFP ####[facility] (DEFAULT)[address] [facility] [place] [address] CO2 [Moles/Vol] 24 mmol/L Normal 21-31 [facility] Comment on above: Performed By: #### M NATHANIEL BLOOM, HFP ####[facility] (DEFAULT)[address] [facility] [place] [address] Creatinine [Mass/Vol] 1.20 mg/dL Normal 0.70-1.30 [facility] Comment on above: Performed By: #### NATHANIEL RAMÍREZ, HFP ####[facility] (DEFAULT)[address] [facility] [place] [address] GFR/1.73 sq M.predicted among non-blacks MDRD (S/P/Bld) [Vol rate/Area] 73 mL/min/{1.73_m2} Normal >=60 [facility] Comment on above: Result Comment: Repo rted eGFR is based on the CKD-EPI 2020 equation using creatinine, age, and sex. Performed By: #### M NATHANIEL BLOOM, HFP ####[facility] (DEFAULT)[address] [facility] [place] [address] Glucose [Mass/Vol] 112 mg/dL High 70-99 [facility] Comment on above: Performed By: #### NATHANIEL RAMÍREZ, HFP ####[facility] (DEFAULT)[address] [facility] [place] [address] Osmolality [Osmolality] 288 mosm/kg Normal 278-305 [facility] Comment on above: Performed By: #### M NATHANIEL BLOOM, HFP ####[facility] (DEFAULT)[address] [place] [address] Potassium [Moles/Vol] 4.1 mmol/L Normal 3.5-5.0 [facility] Comment on above: Performed By: #### M MERLE CHM7, HFP ####[facility] (DEFAULT)[address] [place] [address] Sodium [Moles/Vol] 136 mmol/L Normal 135-145 [facility] Comment on above: Performed By: #### M HELEN BLOOMM7, HFP ####[facility] (DEFAULT)[address] [place] [address] Urea nitrogen [Mass/Vol] 17 mg/dL Normal 7-25 [facility] Comment on above: Performed By: #### Rod BLOOM CHM7, HFP ####[facility] (DEFAULT)[address] [place] [address] Urea nitrogen/Creatinine [Mass ratio] 14 mg/mg Normal [facility] Comment on above: Performed By: #### Rdo BLOOM CHM7, HFP ####[facility] (DEFAULT)[address] [place] [address] CYTOLOGY, NON-GYNOrdered By: Sherice Jimenez on 09-03-2023 CYTOLOGIC DIAGNOSIS t1divASoJQBkkZJkIKSaY1miuxB vCUGedPMjV3OtoqsgKPkhHU4eUX 3odJhuzEUbwHQcGXJwWkEey1hoo 826xXVxn1zvTULNbkjlfKi9s8lr GOHKxW3yt3y5dK33TILbpZ2oeID qUWsxvpAmFQxruiDnxsXnGvk5YA U3cNoqIrjywHR6sSCkvGR6HFidj 3KlfVhqoFwuGTS9NQXsFjwlECrn aMQ2xIMbbYqzrBGaIO3ry6fzyQK 5bfCeNFS9lDebrSF6sKnfleaxo4 qwwLH9tLZ3YLwduFR2WZjiDyDiV 5msPLZynC9bW85gV9hbYTLxqRds GJzsDARvcUO1SYR6KYSej1abAHQ vqNUtwSJoLlRmJJwyXwn6b0dpQO VuaQ92jQIjprB2jOnhYGfldFJ7Z L46EEeiw6HxXZVuwBuhXLShfK7x YzIzXGxldmVsbmZjbjIzXGxldmV uuzWkQKobwmVgt9NjucPdiKS5RM beigZeiHT2wAyaTIIkW8C3O247E XdwnsJgczHuJiDcpcb9OTKfhPqb bGlzdGxldmVsXGxldmVsbmZjMjN dbNX3BAjlMtNpGaTfdED5HJolKm SkpHU7GFgscHRjnMK2ZNirfNQ5N Ab9MVk6JBokXQdqWiw9lJmlwBO1 SQcdnH9eKFEtJ28lBlI0b0nbaOQ 3rFJ6AGlbgQO0HRxiGaGrJ7gvXB JqoX8vM44cB5lwMTPjxTvfQIfmC XPmoOC5HXP9URFcq2blOCRdySZt oMGaRuLwYKrqExe9g6qmHPIhkS3 4bRDtspN4xHesKK18IDfwc4SwEX FxhHcvJEGynD3fGfJeEUxwqwUfw mZjbjIzXGxldmVsamMwXGxldmVs f6RzxoQksRJ4KLoeouChkTG2iHh iYXCzN2E6I981YTenkcOgekXjNq Wspdi2BLYkgTandPlvtLqgfqDqT ZsafpXzqeZmJdGdjVG6VRtyFlPt TmMpkNJ4TTptBtMzhAM5TCbgyYZ ppYW0PPwahQN1WTd7QFk0VKwuBO dgTpo8tWtffMO6PJwrgS8uWFFlT 50aWeC1p1hgyIU4cFQ9WTqrgVP2 ZRtpScSuC2rzBZEsmA2yR28eD6x xDTZiaKtzKSgaUTTgoUS4KMI8FG Bgq5cjTLAyrHInkKXdGfVsQYzcF fq3v5quLWQafM76cYOxsoZ7iXtm QX22UAcdn7KlJTNjbAiaYYHmyI8 mYzIzXGxldmVsbmZjbjIzXGxldm GbxvKbIHjeobEob1FmtuSzdSL6V JrbhlZuxAA9mVlrVFGdR2H5I851 FJyyvuWydqMeOuBfdat2PNKskHy cbGlzdGxldmVsXGxldmVsbmZjMj WftBF6PDwmFnEhBxLabCD0WDnhT fRjkMB8IRtdmQAzfEH1QBhsiXY3 ORj5VOi0ANveOSupCsn4uRvukXG 2ANbnnI2dROKdR55gAxG5gD95ZP pvoNtfdH49IAUgcCHeqROcwAY4K AlgiHsgaD66PWWnhQHqUXpkj9Zm YDAjIaF0RKS5LRRzfCmviK19DBN rdZYmP984lxGkNWowXO88SWIzuC WzoeOcKzKqESKovZVzoRS6YNWzS I5xvdmpFSwyBAepNVDwvlC1WUXt bJVtL1ExPQIrIY2gtyugHXJ8KJd jPARsDFK9MqGpFWVvx6Befgu9Ta XtaCt0n4voDHBfIFIzjOwsa5clY PN7WNQijATmI8rbxK7nCOWtEA5a tbyce6fyKPexVWfeSKDrwVV8haL 2QBZpwYCdM3MwxH8nEOEvYDWxkm HqyWwvzQ5yDpwynsJkCOZxTMIDD zHGLn6TD4mGROkWTS9XHSQbTFCL QWfKKOPYNXEGRWbZD0DZQRyJPsJ qYQHzQSBuC7iCW3aMR4obRmjsPw IoJNigOYWbCsSmM4DlQRIuxduxJ UMaRXSJYJ9SCIWIHTGTSm8RRCJ9 FXOqlbsykHI2XNvztpZirEs1eSG xcEscqY0bGqfpoxZeYFGfVWGTgs YVDAdqF50lqwQyJ4MorNFtHRUdT PzxRR63yMBiQLYeqDNjTZc6tQ7b ZDtaqLizllNUrMXhxL9vipxkSAd jZjBccGFyXGxpMFxsczBccGFyfQ == [facility] Work Phone: Case Report [facility] Work Phone: Clinical History e7eomYMyQZMwxKBnWFCz X3pfuvI rBIBqbVJwA4AyzbllMDzbOS5jEV 5joWrobVQjaUXnJVDeTyZfi4ysh 171vIZog1ecGUIGtibteHi1hFbj O58qu7L6BmnyW7wwBGTxBYqnJFR jUZbedSFuJKf3EQItbHNokkKoMj RtMBJcoXQtyGQ7JMWsOD5xupqwP SmgVLecAPAothQ9TSThkGXgU8Qo FNJcFS9idivsCHP6XOhdLDXlERF 3AbPjFJUrl0Arhcz0DtCdpEv8z0 osELVgLVRadKslm5ahCWZ1FZRkg AMoS5asfH5zXILdPS7prdvkr9gi PGvcDIpwMYTtoXD8vcF5BXUcyXY rJ6CqwS9jNAJrJPMiiqGulBuciN 5cZnMyMFxjZjEgUmVuYWwgdHJhb rQciENumZ2pSOGitk5= [facility] Work Phone: For Immediate Release to Patient's MyChart? Yes Yes [facility] Work Phone: Gross Description p7mmlVKdUCJpaDNcEWNn Z6mcyqN lEFEzhHTsX6VdaifbNNzdHG7uZP 9roUncuAHwdPDjAOOpRrQqk8afa 172tBBoy3isVUNWbmmkwCf3hNgt Q12bd6P8TrpgY12eaJPbMVR7DCA jXULrhATcZMBgDDS9MTWwcCTcE5 maGCPzPR6wbpvnBMhyLTemNWSpg AS8IJSigMYsV1HpDNAwALxvCVDv adj1CbMuHd6nrVErsIkhYYtgKYJ kXHBsYWluXGZzMjAgTExMIEJBTF hnIEBhPEHksDYlHGd5WRWhiQ3bu OYblzVbzONnjQ0miUzsPTnxANEc WFGVRMLtnQigBVLTCWYmr7IitX9 ccGFyXHBhcmRccGFyXHBhcn0= [facility] Work Phone: [facility] Work Phone: HEPATIC FUNCTION PANELon Albumin [Mass/Vol] 3.2 g/dL Low 3.5 - 5.0 g/dL [facility] ALP [Catalytic activity/Vol] 118 U/L 32 - 126 U/L [facility] ALT [Catalytic activity/Vol] 25 U/L 10 - 52 U/L [facility] AST [Catalytic activity/Vol] 32 U/L 10 - 39 U/L [facility] Bilirubin [Mass/Vol] 1.0 mg/dL [place] [address].5 mg/dL [facility] Bilirubin.direct [Mass/Vol] 0.3 mg/dL High NINF - 0.3 mg/dL [facility] Protein [Mass/Vol] 6.5 g/dL 6.4 - 8.3 g/dL [facility] Albumin [Mass/Vol] 3.2 g/dL Low 3.5-5.0 [facility] Comment on above: Performed By: #### M MERLE [id number], HFP ####[facility] (DEFAULT)[address] [place] [address] ALP [Catalytic activity/Vol] 118 U/L Normal 32-126 [facility] Comment on above: Performed By: #### M MERLE CHM7, HFP ####[facility] (DEFAULT)[address] [place] [address] ALT [Catalytic activity/Vol] 25 U/L Normal 10-52 [facility] Comment on above: Performed By: #### M MERLE CHM7, HFP ####[facility] (DEFAULT)[address] [place] [address] AST [Catalytic activity/Vol] 32 U/L Normal 10-39 [facility] Comment on above: Performed By: #### M GO CHM7, HFP ####[facility] (DEFAULT)[address] [place] [address] Bilirubin [Mass/Vol] 1.0 mg/dL Normal <1.5 [facility] Comment on above: Performed By: #### M GO CHM7, HFP ####[facility] (DEFAULT)[address] [place] [address] Bilirubin.indirect [Mass/Vol] 0.3 mg/dL High <0.3 [facility] Comment on above: Performed By: #### M GO CHM7, HFP ####[facility] (DEFAULT)[address] [place] [address] Protein [Mass/Vol] 6.5 g/dL Normal 6.4-8.3 [facility] Comment on above: Performed By: #### M , CHM7, [facility] ####[facility] (DEFAULT)[address] [place] [address] HISTOPLASMA AND BLASTOMYCES ANTIGEN, ENZYME IMMUNOASSAY, SERMon 09-03-2023 Histoplasma/Blastomy antonia Ag Result Detected Critically abnormal Not Detected [facility] Histoplasma/Blastomy antonia Ag Value 5.3 ng/mL [facility] Interpretation and review of laboratory results Abnormal [facility] IMMUNOPHENOTYPING, TISSUE/FL UIDon 09-03-2023 BKR DX CODE Use Ordering Normal [facility] Comment on above: Order Comment: Pleas e lab add on to specimen collected yesterdayIMMUNOPHENOTYPING DIAGNOSISPATIENT NAME: GEORGE SLATER: 1970MRN: [id number]#: [id number] BY: Yossi Perla M.D,, Ph.D. [id number] TYPE: Bronchial Alveolar LavageLABORATORY INTERPRETATION:There is no [...] characteristicsdetermined The Flow Cytometry Laboratory at [facility]. It has notbeen cleared or approved by the FDA. This laboratory is certifiedunder the Clinical Laboratory Improvement Amendments (CLIA)as qualified to perform high complexity clinical laboratorytesting. This test is used for clinical purposes. It should notbe regarded as investigational or for research.The [facility] Flow Cytometry Laboratory lower limitof CLL MRD detection is 0.1% of the gated lymphocytes. Performed By: #### G IPP ####[facility] (DEFAULT)[address] [place] [address] Flow Interpretation See Comment Normal [facility] Comment on above: Order Comment: Dilan gregory lab add on to specimen collected yesterdayIMMUNOPHENOTYPING DIAGNOSISPATIENT NAME: GEORGE SLATER: 1970MRN: [id number]#: [id number] BY: Yossi Perla M.D,, Ph.D. [id number] TYPE: Bronchial Alveolar LavageLABORATORY INTERPRETATION:There is no [...] characteristicsdetermined The Flow Cytometry Laboratory at [facility]. It has notbeen cleared or approved by the FDA. This laboratory is certifiedunder the Clinical Laboratory Improvement Amendments (CLIA)as qualified to perform high complexity clinical laboratorytesting. This test is used for clinical purposes. It should notbe regarded as investigational or for research.The [facility] Flow Cytometry Laboratory lower limitof CLL MRD detection is 0.1% of the gated lymphocytes. Performed By: #### G IPP ####[facility] ([place] [address] Flow Interpreted by: Yossi Perla MD, PhD Normal [facility] Comment on above: Order Comment: Dilan gregory lab add on to specimen collected yesterdayIMMUNOPHENOTYPING DIAGNOSISPATIENT NAME: GEORGE SLATER: 1970MRN: [id number]#: [id number] BY: Yossi Perla M.D,, Ph.D. [id number] TYPE: Bronchial Alveolar LavageLABORATORY INTERPRETATION:There is no [...] characteristicsdetermined The Flow Cytometry Laboratory at [facility]. It has notbeen cleared or approved by the FDA. This laboratory is certifiedunder the Clinical Laboratory Improvement Amendments (CLIA)as qualified to perform high complexity clinical laboratorytesting. This test is used for clinical purposes. It should notbe regarded as investigational or for research.The [facility] Flow Cytometry Laboratory lower limitof CLL MRD detection is 0.1% of the gated lymphocytes. Performed By: #### G IPP ####[facility] (DEFAULT)[address] [place] [address] MAGNESIUMon 09-03-2023 Interpretation and review of laboratory results Normal [facility] Magnesium [Mass/Vol] 1.6 mg/dL 1.6 - 2 .6 mg/dL [facility] Magnesium [Mass/Vol] 1.6 mg/dL Normal 1.6-2.6 [facility] Comment on above: Performed By: #### M GO, CHM7, [facility] ####[facility] (DEFAULT)[address] [facility] [place] [address] No Panel Informationon 09-03 Interpretation and review of laboratory results Abnormal [facility] PARVOVIRUS (B19) DNA, PCR, B LOODon 09-03-2023 PARVOVIRUS B19 BY RAPID PCR Not detected Not Detected [facility] TX SPEC SOURCE Whole Blood [facility] Portable XR Chest Viewson RADIOLOGY RADIOLOGY [facility] Radiology Study observation (narrative) [facility] Portable XR Chest ViewsOrder ed By: [place] on 09-03-2023 [facility] Work Phone: XR CHEST PORTABLEon 09-03-20 23 XR CHEST PORTABLE Normal [facility] ACID FAST CULTUREon 09-02-20 23 Bacteria identified Cx Nom (Unsp spec) NO GROWTH DAY 42 OF 42 Normal [facility] Comment on above: Performed By: #### A FB ####[facility] (DEFAULT)[address] [facility] [place] [address] Fluorochrome Stain No acid Fast Bacillus Seen Normal [facility] Comment on above: Performed By: #### A FB ####[facility] (DEFAULT)[address] [facility] [place] [address] Bacteria identified Cx Nom (Unsp spec) NO GROWTH DAY 42 OF 42 Normal [facility] Comment on above: Order Comment: BAL A FB culture. Clinical suspicion for non-tuberculous mycobacteria Performed By: #### A FB ####[facility] (DEFAULT)[address] [facility] [place] [address] Fluorochrome Stain No acid Fast Bacillus Seen Normal [facility] Comment on above: Order Comment: BAL A FB culture. Clinical suspicion for non-tuberculous mycobacteria Performed By: #### A FB ####[facility] (DEFAULT)[address] [facility] [place] [address] ASPERGILLUS (GALACTOMANNAN), ANTIGENon 09-02-2023 Galactomannan Ag IA Qn <0.500 NINF [facility] ASPERGILLUS ANTIGEN, BALon 1 Aspergillus Galactomannan Antigen, BAL <0.500 Normal <0.5 [facility] Comment on above: Result Comment: ---- ADDITIONAL INFORMATION This is a qualitative test and the resulted index value isnot indicative of disease severity. Serial testing isrecommended for patients at high risk for invasiveaspergillosis.This assay was performed using the FDA-cleared [employer] Aspergillus Galactomannan EIA.Test Performed by:[address] Director: Rosendo Bose M.D. Ph.D.; CLIA# [id number] Performed By: #### X ASGFL ####[facility] (DEFAULT)[address] [address] Aspergillus Galactomannan Antigen, BAL <0.500 Normal <0.5 [facility] Comment on above: Order Comment: BAL a spirgillus antigen Result Comment: ---- ADDITIONAL INFORMATION This is a qualitative test and the resulted index value isnot indicative of disease severity. Serial testing isrecommended for patients at high risk for invasiveaspergillosis.This assay was performed using the FDA-cleared [employer] Aspergillus Galactomannan EIA.Test Performed by:[address] Director: Rosendo Bose M.D. Ph.D.; CLIA# [id number] Performed By: #### X ASGFL ####[facility] (DEFAULT)[address] [place] [address] ATYPICAL BACTERIAL PNEUMONIA ,PCROrdered By: Shari Contreras on 09-02-2023 B. parapertussis DNA ESTELITA+probe Ql (Unsp spec) Not detected Not Detected [facility] B. pertussis DNA ESTELITA+probe Ql (Unsp spec) Not detected Not Detected [facility] C. pneumoniae DNA ESTELITA+probe Ql (Unsp spec) Not detected Not Detected [facility] Interpretation and review of laboratory results Normal [facility] M. pneumoniae DNA ESTELITA+probe Ql (Unsp spec) Not detected Not Detected [facility] ATYPICAL BACTERIAL PNEUMONIA ,PCRon 09-02-2023 Bordetella Parapertussis Not detected Normal Not Detected [facility] Comment on above: Order Comment: [...] by The Clinical Microbiology Laboratory at The [facility]. It has not been cleared or approved by the FDA. The laboratory is required under CLIA as qualified to perform high-complexity testing. This test is used for clinical purposes. It should not be regarded as investigational or for research. Performed By: #### A TYPNE ####[facility] (DEFAULT)[address] [place] [address] Bordetella Pertussis Not detected Normal Not Detected [facility] Comment on above: Order Comment: [...] by The Clinical Microbiology Laboratory at The [facility]. It has not been cleared or approved by the FDA. The laboratory is required under CLIA as qualified to perform high-complexity testing. This test is used for clinical purposes. It should not be regarded as investigational or for research. Performed By: #### A TYPNE ####[facility] (DEFAULT)[address] [address] Chlamydia Pneumoniae Not detected Normal Not Detected [facility] Comment on above: Order Comment: [...] by The Clinical Microbiology Laboratory at The [facility]. It has not been cleared or approved by the FDA. The laboratory is required under CLIA as qualified to perform high-complexity testing. This test is used for clinical purposes. It should not be regarded as investigational or for research. Performed By: #### A TYPNE ####[facility] (DEFAULT)[address] [address] Mycoplasma Pneumoniae Not detected Normal Not Detected [facility] Comment on above: Order Comment: [...] by The Clinical Microbiology Laboratory at The [facility]. It has not been cleared or approved by the FDA. The laboratory is required under CLIA as qualified to perform high-complexity testing. This test is used for clinical purposes. It should not be regarded as investigational or for research. Performed By: #### A TYPNE ####[facility] (DEFAULT)[address] [address] BAL CONSULTon 09-02-2023 ALVEOLAR MACROPHAGES 33 % Normal [facility] Comment on above: Order Comment: BAL c onsultIf > 15% lymphocytes - please send for flow. Performed By: #### B ALC ####[facility] (DEFAULT)[address] [facility] [place] [address] Bal comments Correlation with microbiology stains and cultures is recommended. Correlation with viral studies is recommended. Normal [facility] Comment on above: Order Comment: BAL c onsultIf > 15% lymphocytes - please send for flow. Performed By: #### B ALC ####[facility] (DEFAULT)[address] [place] [address] Bal Diff Quik Stain Quality Check Acceptable Normal [facility] Comment on above: Order Comment: BAL c onsultIf > 15% lymphocytes - please send for flow. Performed By: #### B ALC ####[facility] (DEFAULT)[address] [place] [address], [place] [address] Bal Reviewed By: Leonardo Peralta MD [facility] Comment on above: Order Comment: BAL c onsultIf > 15% lymphocytes - please send for flow. Performed By: #### B ALC ####[facility] (DEFAULT)[address] [place] [address] BKR BAL INTERPRETATION Cellular specimen comprised of alveolar macrophages and small lymphocytes. No definitive microorganisms are observed. Rare degenerating cells with changes suggestive of viral cytopathic effect are noted. Moderate degenerative changes. Normal [facility] Comment on above: Order Comment: BAL c onsultIf > 15% lymphocytes - please send for flow. Performed By: #### B ALC ####[facility] (DEFAULT)[address] [place] [address], [place] [address] BKR DX CODE Use Ordering Normal [facility] Comment on above: Order Comment: BAL c onsultIf > 15% lymphocytes - please send for flow. Performed By: #### B ALC ####[facility] (DEFAULT)[address] [place] [address] Eosinophils/100 WBC (Bld) 0 % Normal [facility] Comment on above: Order Comment: BAL c onsultIf > 15% lymphocytes - please send for flow. Performed By: #### B ALC ####[facility] (DEFAULT)[address] [facility] [place] [address] Lymphocytes/100 WBC (Bld) 49 % Normal [facility] Comment on above: Order Comment: BAL c onsultIf > 15% lymphocytes - please send for flow. Performed By: #### B ALC ####[facility] (DEFAULT)[address] [facility] [place] [address] Neutrophils/100 WBC (Bld) 18 % Normal [facility] Comment on above: Order Comment: BAL c onsultIf > 15% lymphocytes - please send for flow. Performed By: #### B ALC ####[facility] (DEFAULT)[address] [facility] [place] [address] ALVEOLAR MACROPHAGES 32 % Normal [facility] Comment on above: Order Comment: BAL c onsult for cell differential and pathologist review. Please do flow cytometry if > 12% lymphocytes Performed By: #### B ALC ####[facility] (DEFAULT)[address] [facility] [place] [address] Bal comments Correlation with microbiology stains and cultures is recommended. Normal [facility] Comment on above: Order Comment: BAL c onsult for cell differential and pathologist review. Please do flow cytometry if > 12% lymphocytes Performed By: #### B ALC ####[facility] (DEFAULT)[address] [facility] [place] [address] Bal Diff Quik Stain Quality Check Acceptable Normal [facility] Comment on above: Order Comment: BAL c onsult for cell differential and pathologist review. Please do flow cytometry if > 12% lymphocytes Performed By: #### B ALC ####[facility] (DEFAULT)[address] [facility] [place] [address] Bal Reviewed By: Leonardo Peralta MD [facility] Comment on above: Order Comment: BAL c onsult for cell differential and pathologist review. Please do flow cytometry if > 12% lymphocytes Performed By: #### B ALC ####[facility] (DEFAULT)[address] [place] [address] BKR BAL INTERPRETATION Cellular specimen comprised of alveolar macrophages and small lymphocytes. No definitive microorganisms are observed. Moderate degenerative changes. Normal [facility] Comment on above: Order Comment: BAL c onsult for cell differential and pathologist review. Please do flow cytometry if > 12% lymphocytes Performed By: #### B ALC ####[facility] (DEFAULT)[address] [facility] [place] [address] BKR DX CODE Use Ordering Normal [facility] Comment on above: Order Comment: BAL c onsult for cell differential and pathologist review. Please do flow cytometry if > 12% lymphocytes Performed By: #### B ALC ####[facility] (DEFAULT)[address] [facility] [place] [address] Eosinophils/100 WBC (Bld) 0 % Normal [facility] Comment on above: Order Comment: BAL c onsult for cell differential and pathologist review. Please do flow cytometry if > 12% lymphocytes Performed By: #### B ALC ####[facility] (DEFAULT)[address] [facility] [place] [address] Lymphocytes/100 WBC (Bld) 57 % Normal [facility] Comment on above: Order Comment: BAL c onsult for cell differential and pathologist review. Please do flow cytometry if > 12% lymphocytes Performed By: #### B ALC ####[facility] (DEFAULT)[address] [facility] [place] [address] Neutrophils/100 WBC (Bld) 11 % Normal [facility] Comment on above: Order Comment: BAL c onsult for cell differential and pathologist review. Please do flow cytometry if > 12% lymphocytes Performed By: #### B ALC ####[facility] (DEFAULT)[address] [facility] [place] [address] BRONCHOSCOPYon 09-02-2023 Radiology Study observation (narrative) [facility] Bacteria identified Cx Nom ( Bld)on 09-02-2023 Bacteria identified Cx Nom (Unsp spec) NO GROWTH DAY 5 OF 5 [facility] CBC,PLATELETSon 09-02-2023 Erythrocyte distribution width (RBC) [Ratio] 13.2 % 10.9 - 14.3 % [facility] Hematocrit (Bld) [Volume fraction] 39.9 % 39.6 - 48.8 % [facility] Hemoglobin (Bld) [Mass/Vol] 12.9 g/dL Low 13.4 - 16.8 g/dL [facility] Interpretation and review of laboratory results Abnormal [facility] MCH (RBC) [Entitic mass] 27.9 pg 26.1 - 33.3 pg [facility] MCHC (RBC) [Mass/Vol] 32.3 g/dL 31.9 - 36.5 g/dL [facility] MCV (RBC) [Entitic vol] 86.4 fL 79.0 - 94.5 fL [facility] Platelet mean volume (Bld) [Entitic vol] 9.5 fL 8.7 - 12.3 fL [facility] Platelets (Bld) [#/Vol] 210 10*3/uL 146 - 337 K/uL [facility] RBC (Bld) [#/Vol] 4.62 10*6/uL [facility] WBC (Bld) [#/Vol] 4.12 10*3/uL 3.73 - 10. 10 K/uL [facility] Hematocrit (Bld) [Volume fraction] 39.9 % Normal 39.6-48.8 [facility] Comment on above: Performed By: #### H [facility] ####[facility] (DEFAULT)[address] [place] [address] Hemoglobin (Bld) [Mass/Vol] 12.9 g/dL Low 13.4-16.8 [facility] Comment on above: Performed By: #### H [facility] ####[facility] (DEFAULT)[address] [place] [address] MCV (RBC) [Entitic vol] 86.4 fL Normal 79.0-94.5 [facility] Comment on above: Performed By: #### H EMOGC ####[facility] (DEFAULT)[address] [place] [address] Mean Cell Hgb 27.9 pg Normal 26.1-33.3 [facility] Comment on above: Performed By: #### H EMOGC ####[facility] (DEFAULT)[address] [place] [address] Mean Cell Hgb Conc 32.3 g/dL Normal 31.9-36.5 [facility] Comment on above: Performed By: #### H EMOGC ####[facility] (DEFAULT)[address] [facility] [place] [address] Platelet mean volume (Bld) [Entitic vol] 9.5 fL Normal 8.7-12.3 [facility] Comment on above: Performed By: #### H EMOGC ####[facility] (DEFAULT)[address] [facility] [place] [address] Platelets (Bld) [#/Vol] 210 10*3/uL Normal 146-337 [facility] Comment on above: Performed By: #### H EMOGC ####[facility] (DEFAULT)[address] [place] [address] RBC (Bld) [#/Vol] 4.62 10*6/uL Normal 4.38-5.83 [facility] Comment on above: Performed By: #### H EMOGC ####[facility] (DEFAULT)[address] [facility] [place] [address] RBC Distribution 13.2 % Normal 10.9-14.3 [facility] Comment on above: Performed By: #### H EMOGC ####[facility] (DEFAULT)[address] [place] [address] WBC (Bld) [#/Vol] 4.12 10*3/uL Normal 3.73-10.10 [facility] Comment on above: Performed By: #### H EMOGC ####[facility] (DEFAULT)[address] [place] [address] CHEM 7 (LYTES,BUN,CREA,GLUC) on 09-02-2023 Anion gap [Moles/Vol] 13 mmol/L 7 - 17 mmol/L [facility] Chloride [Moles/Vol] 105 mmol/L 98 - 10 8 mmol/L [facility] CO2 [Moles/Vol] 22 mmol/L 21 - 31 mmol/L [facility] Creatinine [Mass/Vol] 1.25 mg/dL 0.70 - 1.30 mg/dL [facility] eGFR, CKD-EPI, Male 69 - [facility] Glucose [Mass/Vol] 105 mg/dL High 70 - 99 mg/dL [facility] Osmolality Calc [Osmolality] 287 [facility] Potassium [Moles/Vol] 4.3 mmol/L 3.5 - 5.0 mmol/L [facility] Sodium [Moles/Vol] 136 mmol/L 135 - 145 mmol/L [facility] Urea nitrogen [Mass/Vol] 16 mg/dL 7 - 25 mg/dL [facility] Urea nitrogen/Creatinine [Mass ratio] 13 mg/mg [facility] Anion gap [Moles/Vol] 13 mmol/L Normal 7-17 [facility] Comment on above: Performed By: #### C HM7, HFP, MGO ####[facility] (DEFAULT)[address] [place] [address] Chloride [Moles/Vol] 105 mmol/L Normal 98-108 [facility] Comment on above: Performed By: #### C HM7, HFP, MGO ####[facility] (DEFAULT)[address] [place] [address] CO2 [Moles/Vol] 22 mmol/L Normal 21-31 [facility] Comment on above: Performed By: #### C HM7, HFP, MGO ####[facility] (DEFAULT)[address] [place] [address] Creatinine [Mass/Vol] 1.25 mg/dL Normal 0.70-1.30 [facility] [facility] Comment on above: Performed By: #### C HM7, HFP, MGO ####[facility] (DEFAULT)[address] [place] [address] GFR/1.73 sq M.predicted among non-blacks MDRD (S/P/Bld) [Vol rate/Area] 69 mL/min/{1.73_m2} Normal >=60 [facility] Comment on above: Result Comment: Repo rted eGFR is based on the CKD-EPI 2020 equation using creatinine, age, and sex. Performed By: #### C HM7, HFP, MGO ####[facility] (DEFAULT)[address] [place] [address] Glucose [Mass/Vol] 105 mg/dL High 70-99 [facility] Comment on above: Performed By: #### C HM7, HFP, MGO ####[facility] (DEFAULT)[address] [place] [address] Osmolality [Osmolality] 287 mosm/kg Normal 278-305 [facility] Comment on above: Performed By: #### C HM7, HFP, MGO ####[facility] (DEFAULT)[address] [place] [address] Potassium [Moles/Vol] 4.3 mmol/L Normal 3.5-5.0 [facility] Comment on above: Performed By: #### C HM7, HFP, MGO ####[facility] (DEFAULT)[address] [place] [address] Sodium [Moles/Vol] 136 mmol/L Normal 135-145 [facility] Comment on above: Performed By: #### C HM7, HFP, MGO ####[facility] (DEFAULT)[address] [place] [address] Urea nitrogen [Mass/Vol] 16 mg/dL Normal 7-25 [facility] Comment on above: Performed By: #### C HM7, HFP, MGO ####[facility] (DEFAULT)[address] [facility] [place] [address] Urea nitrogen/Creatinine [Mass ratio] 13 mg/mg Normal [facility] Comment on above: Performed By: #### C HM7, HFP, MGO ####[facility] (DEFAULT)[address] [place] [address] CMV PCR,FLUIDS,URINE,EYE ETC on 09-02-2023 CMV by PCR Result Negative Normal Negative [facility] Comment on above: Result Comment: ---- ADDITIONAL INFORMATION This test was developed and its performance characteristicsdetermined by [facility] in a manner consistent with CLIAruConnectirements. This test has not been cleared or approved by[facility] U.S. Food and Drug Administration.Test Performed by:[address] Director: Rosendo Bose M.D. Ph.D.; CLIA# [id number] Performed By: #### Y CMV ####[facility] (DEFAULT)[address] [place] [address], [place] [address] CMV BY PCR SOURCE BAL RML Normal [facility] Comment on above: Performed By: #### Y CMV ####[facility] (DEFAULT)[address] [place] [address], [place] [address] CMV by PCR Result Negative Normal Negative [facility] Comment on above: Result Comment: ---- ADDITIONAL INFORMATION This test was developed and its performance characteristicsdetermined by [facility] in a manner consistent with CLIArequirements. This test has not been cleared or approved bythe U.S. Food and Drug Administration.Test Performed by:[address] [address] Director: Rosendo Bose M.D. Ph.D.; CLIA# [id number] Performed By: #### Y CMV ####[facility] (DEFAULT)[address] [facility] [place] [address] CMV BY PCR SOURCE BAL LLL Normal [facility] Comment on above: Performed By: #### Y CMV ####[facility] (DEFAULT)[address] [place] [address] CYTOLOGY, NON-GYNon 09-02-20 23 CYTOLOGIC DIAGNOSIS Normal [facility] Comment on above: Result Comment: A. B RONCHOALVEOLAR LAVAGE, LEFT LOWER LOBE (CYTOLOGY):FINAL DIAGNOSIS:No Malignant Cells Are IdentifiedHypocellular Specimen Performed By: #### N ONJONH ####[facility] (DEFAULT)[address] [place] [address] Case Report Normal [facility] Comment on above: Result Comment: Medi abhishek Cytology Report Case: [id number] Provider: Crow Diaz MD Collected: 09/02/2023 08:38 AMOrdering [facility] Received: 09/02/2023 10:44 AMPathologist: KENTON Caglepecimen: BRONCHOALVEOLAR LAVAGE, LLL BAL Performed By: #### N ONJOHNNA ####[facility] (DEFAULT)[address] [place] [address] Clinical History Renal transplant. Normal O [facility] Comment on above: Performed By: #### N ONNILOFNA ####[facility] (DEFAULT)[address] [facility] [place] [address] Gross Description Normal [facility] Comment on above: Result Comment: LLL BAL1 ml hazy colorless fld unfixed1 TP slide Pap stainFor Immediate Release to Patient's MyChart? Yes Performed By: #### N ONGNNONFNA ####[facility] (DEFAULT)[address] [place] [address] FUNGUS CULTUREon 09-02-2023 Bacteria identified Cx Nom (Unsp spec) Normal [facility] Comment on above: Order Comment: Ident ification was performed on the MALDI-TOF mass spectrometer [employer]. This test was developed by [facility] at [facility]. It has not been cleared or approved by the FDA. The laboratory is regulated under CLIA as qualified to perform high-complexity testing. This test is used for clinical purposes. It should not be regarded as investigational or for research. Result Comment: Grow [id number] Decherd Histoplasma capsulatum Performed By: #### F UN ####[facility] (DEFAULT)[address] [place] [address] Bacteria identified Cx Nom (Unsp spec) NO GROWTH DAY 28 OF 28 Normal [facility] Comment on above: Order Comment: BAL f ungal culture Performed By: #### F UN ####[facility] (DEFAULT)[address] [place] [address] HEPATIC FUNCTION PANELon Albumin [Mass/Vol] 3.2 g/dL Low 3.5 - 5.0 g/dL [facility] ALP [Catalytic activity/Vol] 107 U/L 32 - 126 U/L [facility] ALT [Catalytic activity/Vol] 20 U/L 10 - 52 U/L [facility] AST [Catalytic activity/Vol] 31 U/L 10 - 39 U/L [facility] Bilirubin [Mass/Vol] 1.0 mg/dL NINF - 1.5 mg/dL [facility] Bilirubin.direct [Mass/Vol] 0.3 mg/dL High NINF - 0.3 mg/dL [facility] Protein [Mass/Vol] 6.6 g/dL 6.4 - 8.3 g/dL [facility] Albumin [Mass/Vol] 3.2 g/dL Low 3.5-5.0 [facility] Comment on above: Performed By: #### C HM7, HFP, MGO ####[facility] (DEFAULT)[address] [place] [address] ALP [Catalytic activity/Vol] 107 U/L Normal 32-126 [facility] Comment on above: Performed By: #### C HM7, HFP, MGO ####[facility] (DEFAULT)[address] [place] [address] ALT [Catalytic activity/Vol] 20 U/L Normal 10-52 [facility] Comment on above: Performed By: #### C HM7, HFP, MGO ####[facility] (DEFAULT)[address] [place] [address] AST [Catalytic activity/Vol] 31 U/L Normal 10-39 [facility] Comment on above: Performed By: #### C HM7, HFP, MGO ####[facility] (DEFAULT)[address] [place] [address] Bilirubin [Mass/Vol] 1.0 mg/dL Normal <1.5 [facility] Comment on above: Performed By: #### C HM7, HFP, MGO ####[facility] (DEFAULT)[address] [place] [address] Bilirubin.indirect [Mass/Vol] 0.3 mg/dL High <0.3 [facility] Comment on above: Performed By: #### C HM7, HFP, MGO ####[facility] (DEFAULT)[address] [place] [address] Protein [Mass/Vol] 6.6 g/dL Normal 6.4-8.3 [facility] Comment on above: Performed By: #### C HM7, HFP, MGO ####[facility] (DEFAULT)[address] [place] [address] HISTOPLASMA ANTIGEN, FLUIDon 09-02-2023 FH SOURCE BAL RML Normal [facility] Comment on above: Performed By: #### Y FHST ####[facility] (DEFAULT)[address] [facility] [place] [address] Histo FLD interpretation Negative Normal [facility] Comment on above: Result Comment: ---- ADDITIONAL INFORMATION Reference interval: None DetectedReportable Range: Positive Results reported in ng/mL from0.20 ng/mL to 20.00 ng/mLPositive Results above 20.00 ng/mL are reported as 'Abovethe Limit of Quantification'Cross-reactions occur with Blastomyces spp., Coccidioidesspp., and Paracoccidioides brasiliensis.This test was developed and its performance characteristicsdetermined by [employer]. It has not beencleared or approved by the FDA; however, FDA clearance orapproval is not currently required for clinical use. Theresults are not intended to be used as the sole means forclinical diagnosis or patient management decisions.Test Performed by:[facility] [place] [address] [place] [address] Performed By: #### Y FHST ####[facility] (DEFAULT)[address] [place] [address], [place] [address] Histoplasma Antigen, FLUID Not detected Normal [facility] Comment on above: Performed By: #### Y FHST ####[facility] (DEFAULT)[address] [place] [address], [place] [address] HISTOPLASMA ANTIGEN,URINEon 09-02-2023 H. capsulatum Ag (U) [Mass/Vol] Not detected ng/mL [facility] H. capsulatum Ag IA Ql (U) Not detected Not Detected [facility] HISTOPLASMA CAPSULATUM/BLAST OMYCES SPECIES,PCR FLUIDon 09-02-2023 HISTO/BLASTO RESULT Negative Normal Not Applicable [facility] Comment on above: Result Comment: A Ne gative result from BAL fluid does not rule out thepresence of Histoplasma capsulatum because the sensitivity from this source is suboptimal. ADDITIONAL INFORMATION This test was developed and its performance characteristicsdetermined by [facility] in a manner consistent with CLIArequirements. This test has not been cleared or approved bythe U.S. Food and Drug Administration.Test Performed by:[address] [address] Director: Rosendo Bose M.D. Ph.D.; CLIA# [id number] Performed By: #### Y HBRP ####[facility] (DEFAULT)[address] [place] [address] Source BAL RML Normal [facility] Comment on above: Performed By: #### Y HBRP ####[facility] (DEFAULT)[address] [place] [address] HIV 1 AND 2 ANTIBODIES/P24 A NTIGENOrdered By: iWlma Luque on 09-02-2023 HIV 1+2 Ab+HIV1 p24 Ag IA Ql Non-Reactive Non Reactive [facility] Interpretation and review of laboratory results Normal [facility] HIV 1 AND 2 ANTIBODIES/P24 A NTIGENon 09-02-2023 HIV-1/HIV-2 Ab With p24 Antigen Non-Reactive Normal Non Reactive [facility] Comment on above: Performed By: #### L [id number] ####[facility] (DEFAULT)[address] [place] [address] LEGIONELLA CULTUREon 023 Bacteria identified Cx Nom (Unsp spec) NO GROWTH DAY 7 OF 7 Normal [facility] Comment on above: Performed By: #### L EGN ####[facility] (DEFAULT)[address] [place] [address] Bacteria identified Cx Nom (Unsp spec) NO GROWTH DAY 7 OF 7 Normal [facility] Comment on above: Order Comment: BAL l egionella culture Performed By: #### L EGN ####[facility] (DEFAULT)[address] [place] [address] LEGIONELLA PCRon 09-02-2023 Legionella species, Culture BAL RML Normal [facility] Comment on above: Performed By: #### Y LEGRP ####[facility] (DEFAULT)[address] [facility] [place] [address] Legionella, pcr result Negative Normal Not Applicable [facility] Comment on above: Result Comment: ---- ADDITIONAL INFORMATION This test was developed and its performance characteristicsdetermined by [facility] in a manner consistent with CLIArequirements. This test has not been cleared or approved bythe U.S. Food and Drug Administration.Test Performed by:[address] Director: Rosendo Bose M.D. Ph.D.; CLIA# [id number] Performed By: #### Y LEGRP ####[facility] (DEFAULT)[address] [facility] [place] [address] LOWER RESPIRATORY CULTURE, B ACTERIALon 09-02-2023 Bacteria identified Cx Nom (Unsp spec) NO GROWTH DAY 2 OF 2 Normal [facility] Comment on above: Performed By: #### R ES ####[facility] (DEFAULT)[address] [facility] [place] [address] Microscopic observation Gram stain Nom (Unsp spec) Normal [facility] Comment on above: Result Comment: Cyto centrifuge preparationNeutrophils, RareRed Blood Cells PresentNo organisms seen Performed By: #### R ES ####[facility] (DEFAULT)[address] [facility] [place] [address] Bacteria identified Cx Nom (Unsp spec) NO GROWTH DAY 2 OF 2 Normal [facility] Comment on above: Order Comment: BAL b acterial respiratory culture Performed By: #### R ES ####[facility] (DEFAULT)[address] [place] [address] Microscopic observation Gram stain Nom (Unsp spec) Normal [facility] Comment on above: Order Comment: BAL b acterial respiratory culture Result Comment: Cyto centrifuge preparationNeutrophils, ModerateRed Blood Cells PresentNo organisms seen Performed By: #### R ES ####[facility] (DEFAULT)[address] [place] [address] MAGNESIUMon 09-02-2023 Interpretation and review of laboratory results Normal [facility] Magnesium [Mass/Vol] 1.7 mg/dL 1.6 - 2 .6 mg/dL [facility] Magnesium [Mass/Vol] 1.7 mg/dL Normal 1.6-2.6 [facility] Comment on above: Performed By: #### C HM7, HFP, MGO ####[facility] (DEFAULT)[address] [place] [address] No Panel Informationon 09-02 Interpretation and review of laboratory results Abnormal [facility] PNEUMOCYSTIS JIROVECI,PCRon 09-02-2023 PN Report Status DNR Normal [facility] Comment on above: Performed By: #### Y PNRP ####[facility] (DEFAULT)[address] [place] [address] PN Specimen Source BAL RML Normal [facility] Comment on above: Performed By: #### Y PNRP ####[facility] (DEFAULT)[address] [facility] [place] [address] Pneum jiroveci comment DNR Normal [facility] Comment on above: Performed By: #### Y PNRP ####[facility] (DEFAULT)[address] [place] [address] Pneumocystis jiroveci,PCR result Negative Normal Not Applicable [facility] Comment on above: Result Comment: ---- ADDITIONAL INFORMATION This test was developed and its performance characteristicsdetermined by [facility] in a manner consistent with CLIArequirements. This test has not been cleared or approved bythe U.S. Food and Drug Administration.Test Performed by:[place] [id number] Director: Rosendo Bose M.D. Ph.D.; CLIA# [id number] Performed By: #### Y PNRP ####[facility] (DEFAULT)[address] [place] [address] PN Report Status DNR Normal [facility] Comment on above: Performed By: #### Y PNRP ####[facility] (DEFAULT)[address] [place] [address] PN Specimen Source BAL LLL Normal [facility] Comment on above: Performed By: #### Y PNRP ####[facility] (DEFAULT)[address] [place] [address], [place] [address] Pneum jiroveci comment DNR Normal [facility] Comment on above: Performed By: #### Y PNRP ####[facility] (DEFAULT)[address] [place] [address], [place] [address] Pneumocystis jiroveci,PCR result Negative Normal Not Applicable [facility] Comment on above: Result Comment: ---- ADDITIONAL INFORMATION This test was developed and its performance characteristicsdetermined by [facility] in a manner consistent with CLIArequirements. This test has not been cleared or approved bythe U.S. Food and Drug Administration.Test Performed by:[address] [address] Director: Rosendo Bose M.D. Ph.D.; CLIA# [id number] Performed By: #### Y PNRP ####[facility] (DEFAULT)[address] [place] [address] TACROLIMUS LEVEL, TROUGH (TX E DRUG LEVEL)on 09-02-2023 Interpretation and review of laboratory results Normal [facility] Tacrolimus (Bld) [Mass/Vol] 4.2 ng/mL [facility] Tacrolimus, Trough 4.2 ng/mL Normal [facility] Susana ow Transplant: 4.0-12.0, Therapeutic: 5.0-15.0 [facility] Comment on above: Order Comment: Pleas e draw at specified interval PRIOR to dose. Do not hold dose to wait for level. Specimens batched twice per day, (M-F) and once per day weekendsMethod performed is a chemiluminescent microparticle immunoasssay on the [facility] [employer] i2000.The range is based on experience at [facility] and users should be aware that target concentrations vary widely depending on concomitant therapy, time post-transplant, and desired degree of immunosuppression. Performed By: #### T ACRO ####[facility] (DEFAULT)[address] [place] [address] CBC,PLATELETSon 09-01-2023 Erythrocyte distribution width (RBC) [Ratio] 13.4 % 10.9 - 14.3 % [facility] Hematocrit (Bld) [Volume fraction] 38.9 % Low 39.6 - 48.8 % [facility] Hemoglobin (Bld) [Mass/Vol] 12.7 g/dL Low 13.4 - 16.8 g/dL [facility] Interpretation and review of laboratory results Abnormal [facility] MCH (RBC) [Entitic mass] 27.6 pg 26.1 - 33.3 pg [facility] MCHC (RBC) [Mass/Vol] 32.6 g/dL 31.9 - 36.5 g/dL [facility] MCV (RBC) [Entitic vol] 84.6 fL 79.0 - 94.5 fL [facility] Platelet mean volume (Bld) [Entitic vol] 9.4 fL 8.7 - 12.3 fL [facility] Platelets (Bld) [#/Vol] 209 10*3/uL 146 - 337 K/uL [facility] RBC (Bld) [#/Vol] 4.60 10*6/uL [facility] WBC (Bld) [#/Vol] 4.41 10*3/uL 3.73 - 10. 10 K/uL [facility] Hematocrit (Bld) [Volume fraction] 38.9 % Low 39.6-48.8 [facility] Comment on above: Performed By: #### H EMO ####[facility] (DEFAULT)[address] [place] [address] Hemoglobin (Bld) [Mass/Vol] 12.7 g/dL Low 13.4-16.8 [facility] Comment on above: Performed By: #### H EMO ####[facility] (DEFAULT)[address] [place] [address] MCV (RBC) [Entitic vol] 84.6 fL Normal 79.0-94.5 [facility] Comment on above: Performed By: #### H EMOGC ####[facility] (DEFAULT)[address] [facility] [place] [address] Mean Cell Hgb 27.6 pg Normal 26.1-33.3 [facility] Comment on above: Performed By: #### H EMO ####[facility] (DEFAULT)[address] [facility] [place] [address] Mean Cell Hgb Conc 32.6 g/dL Normal 31.9-36.5 [facility] Comment on above: Performed By: #### H EMOGC ####[facility] (DEFAULT)[address] [facility] [place] [address] Platelet mean volume (Bld) [Entitic vol] 9.4 fL Normal 8.7-12.3 [facility] Comment on above: Performed By: #### H [facility] ####[facility] (DEFAULT)[address] [place] [address] Platelets (Bld) [#/Vol] 209 10*3/uL Normal 146-337 [facility] Comment on above: Performed By: #### H EMO ####[facility] (DEFAULT)[address] [place] [address] RBC (Bld) [#/Vol] 4.60 10*6/uL Normal 4.38-5.83 [facility] Comment on above: Performed By: #### H [facility] ####[facility] (DEFAULT)[address] [place] [address] RBC Distribution 13.4 % Normal 10.9-14.3 [facility] Comment on above: Performed By: #### H [facility] ####[facility] (DEFAULT)[address] [place] [address] WBC (Bld) [#/Vol] 4.41 10*3/uL Normal 3.73-10.10 [facility] Comment on above: Performed By: #### H [facility] ####[facility] (DEFAULT)[address] [place] [address] CHEM 7 (LYTES,BUN,CREA,GLUC) on 09-01-2023 Anion gap [Moles/Vol] 14 mmol/L 7 - 17 mmol/L [facility] Chloride [Moles/Vol] 103 mmol/L 98 - 10 8 mmol/L [facility] CO2 [Moles/Vol] 21 mmol/L 21 - 31 mmol/L [facility] Creatinine [Mass/Vol] 1.16 mg/dL 0.70 - 1.30 mg/dL [facility] eGFR, CKD-EPI, Male 76 - PINF [facility] Glucose [Mass/Vol] 117 mg/dL High 70 - 99 mg/dL [facility] Osmolality Calc [Osmolality] 285 [facility] Potassium [Moles/Vol] 4.2 mmol/L 3.5 - 5.0 mmol/L [facility] Sodium [Moles/Vol] 134 mmol/L Low 135 - 145 mmol/L [facility] Urea nitrogen [Mass/Vol] 18 mg/dL 7 - 25 mg/dL [facility] Urea nitrogen/Creatinine [Mass ratio] 16 mg/mg [facility] Anion gap [Moles/Vol] 14 mmol/L Normal 7-17 [facility] Comment on above: Performed By: #### H ANTWAN MGHELEN MercadoM7 ####[facility] (DEFAULT)[address] [facility] [place] [address] Chloride [Moles/Vol] 103 mmol/L Normal 98-108 [facility] Comment on above: Performed By: #### H ANTWAN MGNATHANIEL Mercado ####[facility] (DEFAULT)[address] [facility] [place] [address] CO2 [Moles/Vol] 21 mmol/L Normal 21-31 [facility] Comment on above: Performed By: #### H DOMENICA MONCADA CHM7 ####[facility] (DEFAULT)[address] [facility] [place] [address] Creatinine [Mass/Vol] 1.16 mg/dL Normal 0.70-1.30 [facility] Comment on above: Performed By: #### H ANTWAN MGO CHM7 ####[facility] (DEFAULT)[address] [place] [address] GFR/1.73 sq M.predicted among non-blacks MDRD (S/P/Bld) [Vol rate/Area] 76 mL/min/{1.73_m2} Normal >=60 [facility] Comment on above: Result Comment: Repo rted eGFR is based on the CKD-EPI 2020 equation using creatinine, age, and sex. Performed By: #### H ANTWAN MGOTJ7 ####[facility] (DEFAULT)[address] [place] [address] Glucose [Mass/Vol] 117 mg/dL High 70-99 [facility] Comment on above: Performed By: #### H ANTWAN MGO CHM7 ####[facility] (DEFAULT)[address] [place] [address] Osmolality [Osmolality] 285 mosm/kg Normal 278-305 [facility] Comment on above: Performed By: #### H ANTWAN MGO, CHM7 ####[facility] (DEFAULT)[address] [place] [address] Potassium [Moles/Vol] 4.2 mmol/L Normal 3.5-5.0 [facility] Comment on above: Performed By: #### H ANTWAN MGO, CHM7 ####[facility] (DEFAULT)[address] [facility] [place] [address] Sodium [Moles/Vol] 134 mmol/L Low 135-145 [facility] Comment on above: Performed By: #### H ANTWAN MGO, CHM7 ####[facility] (DEFAULT)[address] [facility] [address] Urea nitrogen [Mass/Vol] 18 mg/dL Normal 7-25 [facility] Comment on above: Performed By: #### Lydia MONCADA MGO, CHM7 ####[facility] (DEFAULT)[address] [facility] [place] [address] Urea nitrogen/Creatinine [Mass ratio] 16 mg/mg Normal [facility] Comment on above: Performed By: #### Lydia MONCADA MGO, CHM7 ####[facility] (DEFAULT)[address] [facility] [place] [address] CRYPTOCOCCAL ANTIGENon 09-01 Cryptococcus sp Ag Ql (S) Negative Negative [facility] Interpretation and review of laboratory results Normal [facility] Cryptococcus Antigen,Serum Negative Normal Negative [facility] Comment on above: Performed By: #### C RAG ####[facility] (DEFAULT)[address] [place] [address] HEPATIC FUNCTION PANELon Albumin [Mass/Vol] 3.3 g/dL Low 3.5 - 5.0 g/dL [facility] ALP [Catalytic activity/Vol] 112 U/L 32 - 126 U/L [facility] ALT [Catalytic activity/Vol] 21 U/L 10 - 52 U/L [facility] AST [Catalytic activity/Vol] 29 U/L 10 - 39 U/L [facility] Bilirubin [Mass/Vol] 1.0 mg/dL NINF - 1.5 mg/dL [facility] Bilirubin.direct [Mass/Vol] 0.2 mg/dL NINF - 0.3 mg/dL [facility] Protein [Mass/Vol] 6.8 g/dL 6.4 - 8.3 g/dL [facility] Albumin [Mass/Vol] 3.3 g/dL Low 3.5-5.0 [facility] Comment on above: Performed By: #### H DOMENICA MONCADA CHM7 ####[facility] (DEFAULT)[address] [place] [address] ALP [Catalytic activity/Vol] 112 U/L Normal 32-126 [facility] Comment on above: Performed By: #### H DOMENICA MONCADA CHM7 ####[facility] (DEFAULT)[address] [facility] [place] [address] ALT [Catalytic activity/Vol] 21 U/L Normal 10-52 [facility] Comment on above: Performed By: #### H DOMENICA MONCADA CHM7 ####[facility] (DEFAULT)[address] [facility] [place] [address] AST [Catalytic activity/Vol] 29 U/L Normal 10-39 [facility] Comment on above: Performed By: #### H DOMENICA MONCADA CHM7 ####[facility] (DEFAULT)[address] [facility] [place] [address] Bilirubin [Mass/Vol] 1.0 mg/dL Normal <1.5 [facility] Comment on above: Performed By: #### H DOMENICA MONCADA CHM7 ####[facility] (DEFAULT)[address] [facility] [place] [address] Bilirubin.indirect [Mass/Vol] 0.2 mg/dL Normal <0.3 [facility] Comment on above: Performed By: #### H DOMENICA MONCADA CHM7 ####[facility] (DEFAULT)[address] [facility] [place] [address] Protein [Mass/Vol] 6.8 g/dL Normal 6.4-8.3 [facility] Comment on above: Performed By: #### H DOMENICA MONCADA CHM7 ####[facility] (DEFAULT)[address] [place] [address] L. pneumophila 1 Ag IA Ql (U )Ordered By: Carolin Miles on 09-01-2023 Interpretation and review of laboratory results Normal [facility] LEGIONELLA URINARY AGOrdered By: Carolin Miles on 09-01-2023 L. pneumophila 1 Ag IA Ql (U) Negative Negative [facility] MAGNESIUMon 09-01-2023 Interpretation and review of laboratory results Normal [facility] Magnesium [Mass/Vol] 1.6 mg/dL 1.6 - 2 .6 mg/dL [facility] Magnesium [Mass/Vol] 1.6 mg/dL Normal 1.6-2.6 [facility] Comment on above: Performed By: #### H DOMENICA MONCADA CHM7 ####[facility] (DEFAULT)[address] [facility] [place] [address] No Panel Informationon 09-01 Interpretation and review of laboratory results Abnormal [facility] PARVOVIRUS (B19) DNA, PCR, B Jenise 09-01-2023 PARVOVIRUS B19 BY RAPID PCR Not detected Normal Not Detected [facility] Comment on above: Result Comment: The primers/probe used in this assay will detectparvovirus B19 and V9 (genotypes 1 # 3) but maynot detect parvovirus genotype 2. The majority ofcirculating Parvovirus B19 strains in the [facility] are genotype 1. Genotype 2 is not believed tocirculate widely in the [facility], but has beenassociated with similar clinical features as genotype1. Genotype 3 is most prevalent in some [place] [facility] [place].This test was developed and its analyticalperformance characteristics have been determinedby [place]It has not been cleared or approved by the FDA. Thisassay has been validated pursuant to the CLIAregulations and is used for clinical purposes.Test Performed at:[facility] [address] [address]ZgywvyvRamon Benavides M.D., Ph.D.,Director of Laboratories Performed By: #### Y PRVP ####[facility] (DEFAULT)[address] [place] [address] [place] SPEC SOURCE Whole Blood Normal [facility] Comment on above: Performed By: #### Y PRVP ####[facility] (DEFAULT)[address] [place] [address] ASPERGILLUS (GALACTOMANNAN), ANTIGENon 08-31-2023 Aspergillus Antigen <0.500 Normal <0.5 [facility] Comment on above: Result Comment: ---- ADDITIONAL INFORMATION This is a qualitative test and the resulted index value isnot indicative of disease severity. Serial testing isrecommended for patients at high risk for invasiveaspergillosis.This assay was performed using the FDA-cleared [employer]Platelia Aspergillus Galactomannan EIA.Test Performed by:[address] [address]Adc Director: Rosendo Bose M.D. Ph.D.; CLIA# [id number] Performed By: #### Y ASP ####[facility] (DEFAULT)[address] [place] [address] CBC,PLATELETSon 08-31-2023 Erythrocyte distribution width (RBC) [Ratio] 13.3 % 10.9 - 14.3 % [facility] Hematocrit (Bld) [Volume fraction] 39.4 % Low 39.6 - 48.8 % [facility] Hemoglobin (Bld) [Mass/Vol] 12.8 g/dL Low 13.4 - 16.8 g/dL [facility] Interpretation and review of laboratory results Abnormal [facility] MCH (RBC) [Entitic mass] 27.6 pg 26.1 - 33.3 pg [facility] MCHC (RBC) [Mass/Vol] 32.5 g/dL 31.9 - 36.5 g/dL [facility] MCV (RBC) [Entitic vol] 85.1 fL 79.0 - 94.5 fL [facility] Platelet mean volume (Bld) [Entitic vol] 9.6 fL 8.7 - 12.3 fL [facility] Platelets (Bld) [#/Vol] 228 10*3/uL 146 - 337 K/uL [facility] RBC (Bld) [#/Vol] 4.63 10*6/uL [facility] WBC (Bld) [#/Vol] 4.77 10*3/uL 3.73 - 10. 10 K/uL [facility] Hematocrit (Bld) [Volume fraction] 39.4 % Low 39.6-48.8 [facility] Comment on above: Performed By: #### H [facility] ####[facility] (DEFAULT)[address] [place] [address] Hemoglobin (Bld) [Mass/Vol] 12.8 g/dL Low 13.4-16.8 [facility] Comment on above: Performed By: #### H [facility] ####[facility] (DEFAULT)[address] [facility] [place] [address] MCV (RBC) [Entitic vol] 85.1 fL Normal 79.0-94.5 [facility] Comment on above: Performed By: #### H EMOGC ####[facility] (DEFAULT)[address] [facility] [place] [address] Mean Cell Hgb 27.6 pg Normal 26.1-33.3 [facility] Comment on above: Performed By: #### H EMOGC ####[facility] (DEFAULT)[address] [facility] [place] [address] Mean Cell Hgb Conc 32.5 g/dL Normal 31.9-36.5 [facility] Comment on above: Performed By: #### H EMOGC ####[facility] (DEFAULT)[address] [facility] [place] [address] Platelet mean volume (Bld) [Entitic vol] 9.6 fL Normal 8.7-12.3 [facility] Comment on above: Performed By: #### H EMOGC ####[facility] (DEFAULT)[address] [facility] [place] [address] Platelets (Bld) [#/Vol] 228 10*3/uL Normal 146-337 [facility] Comment on above: Performed By: #### H EMOGC ####[facility] (DEFAULT)[address] [facility] [place] [address] RBC (Bld) [#/Vol] 4.63 10*6/uL Normal 4.38-5.83 [facility] Comment on above: Performed By: #### H EMOGC ####[facility] (DEFAULT)[address] [facility] [place] [address] RBC Distribution 13.3 % Normal 10.9-14.3 [facility] Comment on above: Performed By: #### H EMOGC ####[facility] (DEFAULT)[address] [place] [address] WBC (Bld) [#/Vol] 4.77 10*3/uL Normal 3.73-10.10 [facility] Comment on above: Performed By: #### H [facility] ####[facility] (DEFAULT)[address] [place] [address] CHEM 7 (LYTES,BUN,CREA,GLUC) on 08-31-2023 Anion gap [Moles/Vol] 13 mmol/L 7 - 17 mmol/L [facility] Chloride [Moles/Vol] 102 mmol/L 98 - 10 8 mmol/L [facility] CO2 [Moles/Vol] 23 mmol/L 21 - 31 mmol/L [facility] Creatinine [Mass/Vol] 1.37 mg/dL High 0.70 - 1.30 mg/dL [facility] e[facility], CKD-EPI, Male 62 - [facility] Glucose [Mass/Vol] 112 mg/dL High 70 - 99 mg/dL [facility] Osmolality Calc [Osmolality] 284 [facility] Potassium [Moles/Vol] 4.4 mmol/L 3.5 - 5.0 mmol/L [facility] Sodium [Moles/Vol] 134 mmol/L Low 135 - 145 mmol/L [facility] Urea nitrogen [Mass/Vol] 16 mg/dL 7 - 25 mg/dL [facility] Urea nitrogen/Creatinine [Mass ratio] 12 mg/mg [facility] Anion gap [Moles/Vol] 13 mmol/L Normal 7-17 [facility] Comment on above: Performed By: #### M TAVO BLOOM, FERROBERT, PROCAL, CHM7 ####[facility] (DEFAULT)[address] [place] [address] Chloride [Moles/Vol] 102 mmol/L Normal 98-108 [facility] Comment on above: Performed By: #### M MERLE HFP, FERIB, PROCAL, CHM7 ####[facility] (DEFAULT)[address] [facility] [place] [address] CO2 [Moles/Vol] 23 mmol/L Normal 21-31 [facility] Comment on above: Performed By: #### M GO, HFP, FERIB, PROCAL, CHM7 ####[facility] (DEFAULT)[address] [place] [address] Creatinine [Mass/Vol] 1.37 mg/dL High 0.70-1.30 [facility] Comment on above: Performed By: #### M GO, HFP, FERIB, PROCAL, CHM7 ####[facility] (DEFAULT)[address] [facility] [place] [address] GFR/1.73 sq M.predicted among non-blacks MDRD (S/P/Bld) [Vol rate/Area] 62 mL/min/{1.73_m2} Normal >=60 [facility] Comment on above: Result Comment: Repo rted eGFR is based on the CKD-EPI 2020 equation using creatinine, age, and sex. Performed By: #### M GO, HFP, FERIB, PROCAL, CHM7 ####[facility] (DEFAULT)[address] [facility] [place] [address] Glucose [Mass/Vol] 112 mg/dL High 70-99 [facility] Comment on above: Performed By: #### M GO, HFP, FERIB, PROCAL, CHM7 ####[facility] (DEFAULT)[address] [facility] [place] [address] Osmolality [Osmolality] 284 mosm/kg Normal 278-305 [facility] Comment on above: Performed By: #### M GO, HFP, FERIB, PROCAL, CHM7 ####[facility] (DEFAULT)[address] [facility] [place] [address] Potassium [Moles/Vol] 4.4 mmol/L Normal 3.5-5.0 [facility] Comment on above: Performed By: #### M GO, HFP, FERIB, PROCAL, CHM7 ####[facility] (DEFAULT)[address] [facility] [place] [address] Sodium [Moles/Vol] 134 mmol/L Low 135-145 [facility] Comment on above: Performed By: #### M GO, HFP, FERIB, PROCAL, CHM7 ####[facility] (DEFAULT)[address] [facility] [place] [address] Urea nitrogen [Mass/Vol] 16 mg/dL Normal 7-25 [facility] Comment on above: Performed By: #### M GO, HFP, FERIB, PROCAL, CHM7 ####[facility] (DEFAULT)[address] [facility] [place] [address] Urea nitrogen/Creatinine [Mass ratio] 12 mg/mg Normal [facility] Comment on above: Performed By: #### M GO, HFP, FERIB, PROCAL, CHM7 ####[facility] (DEFAULT)[address] [facility] [place] [address] CT ABDOMEN/PELVIS WITHOUT CO NTRASTon 08-31-2023 CT ABDOMEN/PELVIS WITHOUT CONTRAST Normal [facility] CT Abdomen and Pelvis WO con traston 08-31-2023 RADIOLOGY RADIOLOGY [facility] Radiology Study observation (narrative) [facility] CT Abdomen and Pelvis WO con trastOrdered By: Chavez Larkin on 08-31-2023 [facility] Work Phone: CT CHEST WITHOUT CONTRASTon 08-31-2023 CT CHEST WITHOUT CONTRAST Normal [facility] CT Chest WO contraston 08-31 RADIOLOGY RADIOLOGY [facility] Radiology Study observation (narrative) [facility] CT Chest WO contrastOrdered By: Daisha Patterson on 08-31-2023 [facility] Work Phone: FERRITINon 08-31-2023 Ferritin [Mass/Vol] 409.0 ng/mL High 10.5 - 3 07.3 ng/mL [facility] Interpretation and review of laboratory results Abnormal [facility] Ferritin [Mass/Vol] 409.0 ng/mL High 10.5-307.3 [facility] Comment on above: Performed By: #### M MERLE HFP, FERIB, PROCAL, CHM7 ####[facility] (DEFAULT)[address] [place] [address] HEPATIC FUNCTION PANELon Albumin [Mass/Vol] 3.3 g/dL Low 3.5 - 5.0 g/dL [facility] ALP [Catalytic activity/Vol] 113 U/L 32 - 126 U/L [facility] ALT [Catalytic activity/Vol] 25 U/L 10 - 52 U/L [facility] AST [Catalytic activity/Vol] 31 U/L 10 - 39 U/L [facility] Bilirubin [Mass/Vol] 1.1 mg/dL NINF - 1.5 mg/dL [facility] Bilirubin.direct [Mass/Vol] 0.3 mg/dL High NINF - 0.3 mg/dL [facility] Protein [Mass/Vol] 7.0 g/dL 6.4 - 8.3 g/dL [facility] Albumin [Mass/Vol] 3.3 g/dL Low 3.5-5.0 [facility] Comment on above: Performed By: #### M MERLE HFP, FERIB, PROCAL, CHM7 ####[facility] (DEFAULT)[address] [place] [address] ALP [Catalytic activity/Vol] 113 U/L Normal 32-126 [facility] Comment on above: Performed By: #### M MERLE HFP, FERIB, PROCAL, CHM7 ####[facility] (DEFAULT)[address] [place] [address] ALT [Catalytic activity/Vol] 25 U/L Normal 10-52 [facility] Comment on above: Performed By: #### M GO, HFP, FERIB, PROCAL, CHM7 ####[facility] (DEFAULT)[address] [place] [address] AST [Catalytic activity/Vol] 31 U/L Normal 10-39 [facility] Comment on above: Performed By: #### M GO, HFP, FERIB, PROCAL, CHM7 ####[facility] (DEFAULT)[address] [place] [address] Bilirubin [Mass/Vol] 1.1 mg/dL Normal <1.5 [facility] Comment on above: Performed By: #### M GO, HFP, FERIB, PROCAL, CHM7 ####[facility] (DEFAULT)[address] [facility] [address] Bilirubin.indirect [Mass/Vol] 0.3 mg/dL High <0.3 [facility] Comment on above: Performed By: #### M GO, HFP, FERIB, PROCAL, CHM7 ####[facility] (DEFAULT)[address] [facility] [place] [address] Protein [Mass/Vol] 7.0 g/dL Normal 6.4-8.3 [facility] Comment on above: Performed By: #### M GO, HFP, FERIB, PROCAL, CHM7 ####[facility] (DEFAULT)[address] [facility] [place] [address] LEGIONELLA URINARY AGon 10- Legionella Urinary Antigen Negative Normal Negative [facility] Comment on above: Performed By: #### L EGION ####[facility] (DEFAULT)[address] [facility] [place] [address] MAGNESIUMon 08-31-2023 Interpretation and review of laboratory results Normal [facility] Magnesium [Mass/Vol] 1.7 mg/dL 1.6 - 2 .6 mg/dL [facility] Magnesium [Mass/Vol] 1.7 mg/dL Normal 1.6-2.6 [facility] Comment on above: Performed By: #### M MERLE HFP, FERIB, PROCAL, CHM7 ####[facility] (DEFAULT)[address] [place] [address] No Panel Informationon 08-31 Interpretation and review of laboratory results Abnormal [facility] PROCALCITONINon 08-31-2023 Interpretation and review of laboratory results Normal [facility] Procalcitonin [Mass/Vol] 0.23 ng/mL NINF - 0.50 ng/mL [facility] Procalcitonin 0.23 ng/mL Normal <0.50 [facility] Comment on above: [...] and trend procalcitonin in various clinical settings. [email or web address]=/[email or web address] [email or web address]&action=[email or web address] common cutoffs associated with bacterial infections are as follows.Respiratory tract infections: >0.25 ng/mLSepsis/septic shock: >0.5 ng/mLProcalcitonin should not be used alone as a diagnostic tool, however. All procalcitonin results should be interpreted in association with the patients clinical condition and all laboratory findings. Performed By: #### M MERLE, HFP, FERIB, PROCAL, CHM7 ####[facility] (DEFAULT)[address] [place] [address] TACROLIMUS LEVEL, TROUGH ([place] E DRUG LEVEL)Ordered By: Yanira Marcum on 08-31-2023 Interpretation and review of laboratory results Normal [facility] Tacrolimus (Bld) [Mass/Vol] 5.9 ng/mL [facility] TACROLIMUS LEVEL, TROUGH ([place] E DRUG LEVEL)on 08-31-2023 Tacrolimus, Trough 5.9 ng/mL Normal Bone Susana ow Transplant: 4.0-12.0, Therapeutic: 5.0-15.0 [facility] Comment on above: Order Comment: Pleas e draw at specified interval PRIOR to dose. Do not hold dose to wait for level. Specimens batched twice per day, (M-F) and once per day weekendsMethod performed is a chemiluminescent microparticle immunoasssay on the [employer] i2000.The range is based on experience at [facility] and users should be aware that target concentrations vary widely depending on concomitant therapy, time post-transplant, and desired degree of immunosuppression. Performed By: #### T ACRO ####[facility] (DEFAULT)[address] [place] [address] URINE CULTUREOrdered By: Jorge crowe Held on 08-31-2023 Bacteria identified Cx Nom (Unsp spec) No Growth [facility] DARYL AURIS SCREEN BY PCRO rdered By: Mynor Alejandro on 08-30-2023 Daryl auris Screen by PCR Not detected Not Detected [facility] Interpretation and review of laboratory results Normal [facility] CBC,PLATELETSon 08-30-2023 Erythrocyte distribution width (RBC) [Ratio] 13.3 % 10.9 - 14.3 % [facility] Hematocrit (Bld) [Volume fraction] 41.3 % 39.6 - 48.8 % [facility] Hemoglobin (Bld) [Mass/Vol] 13.2 g/dL Low 13.4 - 16.8 g/dL [facility] Interpretation and review of laboratory results Abnormal [facility] MCH (RBC) [Entitic mass] 27.3 pg 26.1 - 33.3 pg [facility] MCHC (RBC) [Mass/Vol] 32.0 g/dL 31.9 - 36.5 g/dL [facility] - [place] MCV (RBC) [Entitic vol] 85.5 fL 79.0 - 94.5 fL [facility] [place] Platelet mean volume (Bld) [Entitic vol] 9.2 fL 8.7 - 12.3 fL [facility] [place] Platelets (Bld) [#/Vol] 235 10*3/uL 146 - 337 K/uL [facility] [place] RBC (Bld) [#/Vol] 4.83 10*6/uL [facility] WBC (Bld) [#/Vol] 4.96 10*3/uL 3.73 - 10. 10 K/uL [facility] Hematocrit (Bld) [Volume fraction] 41.3 % Normal 39.6-48.8 [facility] Comment on above: Performed By: #### H EMO ####[facility] [place] (DEFAULT)[address] [place] [address] Hemoglobin (Bld) [Mass/Vol] 13.2 g/dL Low 13.4-16.8 [facility] Comment on above: Performed By: #### H EMO ####[facility] [place] (DEFAULT)[address] [place] [address] MCV (RBC) [Entitic vol] 85.5 fL Normal 79.0-94.5 [facility] Comment on above: Performed By: #### H EMOGC ####[facility] [place] (DEFAULT)[address] [place] [address] Mean Cell Hgb 27.3 pg Normal 26.1-33.3 [facility] Comment on above: Performed By: #### H EMOGC ####[facility] [place] (DEFAULT)[address] [place] [address] Mean Cell Hgb Conc 32.0 g/dL Normal 31.9-36.5 [facility] Comment on above: Performed By: #### H EMOGC ####[facility] [place] (DEFAULT)[address] [place] [address] Platelet mean volume (Bld) [Entitic vol] 9.2 fL Normal 8.7-12.3 [facility] Comment on above: Performed By: #### H EMO ####[facility] [place] (DEFAULT)[address] [facility] [place] [address] Platelets (Bld) [#/Vol] 235 10*3/uL Normal 146-337 [facility] Comment on above: Performed By: #### H EMO ####[facility] [place] (DEFAULT)[address] [place] [address] RBC (Bld) [#/Vol] 4.83 10*6/uL Normal 4.38-5.83 [facility] Comment on above: Performed By: #### H EMO ####[facility] [place] (DEFAULT)[address] [facility] [place] [address] RBC Distribution 13.3 % Normal 10.9-14.3 [facility] Comment on above: Performed By: #### H EMO ####[facility] [place] (DEFAULT)[address] [facility] [place] [address] WBC (Bld) [#/Vol] 4.96 10*3/uL Normal 3.73-10.10 [facility] Comment on above: Performed By: #### H [facility] ####[facility] [place] (DEFAULT)[address] [place] [address] CHEM 7 (LYTES,BUN,CREA,GLUC) on 08-30-2023 Anion gap [Moles/Vol] 14 mmol/L 7 - 17 mmol/L [facility] [place] Chloride [Moles/Vol] 102 mmol/L 98 - 10 8 mmol/L [facility] [place] CO2 [Moles/Vol] 20 mmol/L Low 21 - 31 mmol/L [facility] [place] Creatinine [Mass/Vol] 1.56 mg/dL High 0.70 - 1.30 mg/dL [facility] [place] eGFR, CKD-EPI, Male 54 Low - PINF [facility] Glucose [Mass/Vol] 123 mg/dL High 70 - 99 mg/dL [facility] [place] Osmolality Calc [Osmolality] 281 [facility] [place] Potassium [Moles/Vol] 4.3 mmol/L 3.5 - 5.0 mmol/L [facility] [place] Sodium [Moles/Vol] 132 mmol/L Low 135 - 145 mmol/L [facility] [place] Urea nitrogen [Mass/Vol] 16 mg/dL 7 - 25 mg/dL [facility] [place] Urea nitrogen/Creatinine [Mass ratio] 10 mg/mg [facility] [place] Anion gap [Moles/Vol] 14 mmol/L Normal 7-17 [facility] Comment on above: Performed By: #### NATHANIEL RAMÍREZ, HFP ####[facility] [place] (DEFAULT)[address] [facility] [place] [address] Chloride [Moles/Vol] 102 mmol/L Normal 98-108 [facility] Comment on above: Performed By: #### NATHANIEL RAMÍREZ, HFP ####[facility] [place] (DEFAULT)[address] [facility] [place] [address] CO2 [Moles/Vol] 20 mmol/L Low 21-31 [facility] Comment on above: Performed By: #### NATHANIEL RAMÍREZ, HFP ####[facility] [place] (DEFAULT)[address] [facility] [place] [address] Creatinine [Mass/Vol] 1.56 mg/dL High 0.70-1.30 [facility] Comment on above: Performed By: #### NATHANIEL RAMÍREZ, HFP ####[facility] [place] (DEFAULT)[address] [facility] [place] [address] GFR/1.73 sq M.predicted among non-blacks MDRD (S/P/Bld) [Vol rate/Area] 53 mL/min/{1.73_m2} Low >=60 [facility] Comment on above: Result Comment: Repo rted eGFR is based on the CKD-EPI 2020 equation using creatinine, age, and sex. Performed By: #### NATHANIEL RAMÍREZ, HFP ####[facility] (DEFAULT)[address] [place] [address] Glucose [Mass/Vol] 123 mg/dL High 70-99 [facility] Comment on above: Performed By: #### NATHANIEL RAMÍREZ, HFP ####[facility] (DEFAULT)[address] [place] [address] Osmolality [Osmolality] 281 mosm/kg Normal 278-305 [facility] Comment on above: Performed By: #### NATHANIEL RAMÍREZ, HFP ####[facility] [place] (DEFAULT)[address] [place] [address] Potassium [Moles/Vol] 4.3 mmol/L Normal 3.5-5.0 [facility] Comment on above: Performed By: #### NATHANIEL RAMÍREZ, HFP ####[facility] [place] (DEFAULT)[address] [place] [address] Sodium [Moles/Vol] 132 mmol/L Low 135-145 [facility] Comment on above: Performed By: #### NATHANIEL RAMÍREZ, HFP ####[facility] [place] (DEFAULT)[address] [place] [address] Urea nitrogen [Mass/Vol] 16 mg/dL Normal 7-25 [facility] Comment on above: Performed By: #### NATHANIEL RAMÍREZ, HFP ####[facility] [place] (DEFAULT)[address] [place] [address] Urea nitrogen/Creatinine [Mass ratio] 10 mg/mg Normal [facility] Comment on above: Performed By: #### ANTHANIEL RAMÍREZ, HFP ####[facility] [place] (DEFAULT)[address] [place] [address] EXTRA MICROon 08-30-2023 [facility] [place] HEPATIC FUNCTION PANELon Albumin [Mass/Vol] 3.7 g/dL 3.5 - 5.0 g/dL [facility] [place] ALP [Catalytic activity/Vol] 115 U/L 32 - 126 U/L [facility] [place] ALT [Catalytic activity/Vol] 22 U/L 10 - 52 U/L [facility] [place] AST [Catalytic activity/Vol] 34 U/L 10 - 39 U/L [facility] [place] Bilirubin [Mass/Vol] 1.2 mg/dL NINF - 1.5 mg/dL [facility] [place] Bilirubin.direct [Mass/Vol] 0.3 mg/dL High NINF - 0.3 mg/dL [facility] [place] Protein [Mass/Vol] 7.7 g/dL 6.4 - 8.3 g/dL [facility] [place] Albumin [Mass/Vol] 3.7 g/dL Normal 3.5-5.0 [facility] Comment on above: Performed By: #### NATHANIEL RAMÍREZ, HFP ####[facility] [place] (DEFAULT)[address] [facility] [place] [address] ALP [Catalytic activity/Vol] 115 U/L Normal 32-126 [facility] Comment on above: Performed By: #### NATHANIEL RAMÍREZ, HFP ####[facility] (DEFAULT)[address] [facility] [place] [address] ALT [Catalytic activity/Vol] 22 U/L Normal 10-52 [facility] Comment on above: Performed By: #### NATHANIEL RAMÍREZ, HFP ####[facility] [place] (DEFAULT)[address] [facility] [place] [address] AST [Catalytic activity/Vol] 34 U/L Normal 10-39 [facility] Comment on above: Performed By: #### NATHANIEL RAMÍREZ, HFP ####[facility] [place] (DEFAULT)[address] [facility] [place] [address] Bilirubin [Mass/Vol] 1.2 mg/dL Normal <1.5 [facility] Comment on above: Performed By: #### NATHANIEL RAMÍREZ, HFP ####[facility] [place] (DEFAULT)[address] [facility] [place] [address] Bilirubin.indirect [Mass/Vol] 0.3 mg/dL High <0.3 [facility] Comment on above: Performed By: #### NATHANIEL RAMÍREZ, HFP ####[facility] [place] (DEFAULT)[address] [place] [address] Protein [Mass/Vol] 7.7 g/dL Normal 6.4-8.3 [facility] Comment on above: Performed By: #### M NATHANIEL BLOOM, HFP ####[facility] [place] (DEFAULT)[address] [place] [address] MAGNESIUMon 08-30-2023 Interpretation and review of laboratory results Normal [facility] [place] Magnesium [Mass/Vol] 1.8 mg/dL 1.6 - 2 .6 mg/dL [facility] [place] Magnesium [Mass/Vol] 1.8 mg/dL Normal 1.6-2.6 [facility] Comment on above: Performed By: #### NATHANIEL RAMÍREZ, HFP ####[facility] [place] (DEFAULT)[address] [place] [address] No Panel Informationon 08-30 Interpretation and review of laboratory results Abnormal [facility] CBC,PLATELETSon 08-29-2023 Erythrocyte distribution width (RBC) [Ratio] 13.4 % 10.9 - 14.3 % [facility] [place] Hematocrit (Bld) [Volume fraction] 37.6 % Low 39.6 - 48.8 % [facility] [place] Hemoglobin (Bld) [Mass/Vol] 12.2 g/dL Low 13.4 - 16.8 g/dL [facility] [place] Interpretation and review of laboratory results Abnormal [facility] [place] MCH (RBC) [Entitic mass] 27.6 pg 26.1 - 33.3 pg [facility] [place] MCHC (RBC) [Mass/Vol] 32.4 g/dL 31.9 - 36.5 g/dL [facility] [place] MCV (RBC) [Entitic vol] 85.1 fL 79.0 - 94.5 fL [facility] [place] Platelet mean volume (Bld) [Entitic vol] 9.4 fL 8.7 - 12.3 fL [facility] [place] Platelets (Bld) [#/Vol] 233 10*3/uL 146 - 337 K/uL [facility] [place] RBC (Bld) [#/Vol] 4.42 10*6/uL [facility] WBC (Bld) [#/Vol] 4.92 10*3/uL 3.73 - 10. 10 K/uL [facility] Hematocrit (Bld) [Volume fraction] 37.6 % Low 39.6-48.8 [facility] Comment on above: Performed By: #### H [facility] ####[facility] [place] (DEFAULT)[address] [place] [address] Hemoglobin (Bld) [Mass/Vol] 12.2 g/dL Low 13.4-16.8 [facility] Comment on above: Performed By: #### H [facility] ####[facility] [place] (DEFAULT)[address] [place] [address] MCV (RBC) [Entitic vol] 85.1 fL Normal 79.0-94.5 [facility] Comment on above: Performed By: #### H EMO ####[facility] [place] (DEFAULT)[address] [place] [address] Mean Cell Hgb 27.6 pg Normal 26.1-33.3 [facility] Comment on above: Performed By: #### H EMOGC ####[facility] [place] (DEFAULT)[address] [place] [address] Mean Cell Hgb Conc 32.4 g/dL Normal 31.9-36.5 [facility] Comment on above: Performed By: #### H EMOGC ####[facility] [place] (DEFAULT)[address] [facility] [place] [address] Platelet mean volume (Bld) [Entitic vol] 9.4 fL Normal 8.7-12.3 [facility] Comment on above: Performed By: #### H [facility] ####[facility] [place] (DEFAULT)[address] [facility] [place] [address] Platelets (Bld) [#/Vol] 233 10*3/uL Normal 146-337 [facility] Comment on above: Performed By: #### H [facility] ####[facility] [place] (DEFAULT)[address] [facility] [place] [address] RBC (Bld) [#/Vol] 4.42 10*6/uL Normal 4.38-5.83 [facility] Comment on above: Performed By: #### H [facility] ####[facility] [place] (DEFAULT)[address] [facility] [place] [address] RBC Distribution 13.4 % Normal 10.9-14.3 [facility] Comment on above: Performed By: #### H [facility] ####[facility] [place] (DEFAULT)[address] [facility] [place] [address] WBC (Bld) [#/Vol] 4.92 10*3/uL Normal 3.73-10.10 [facility] Comment on above: Performed By: #### H [facility] ####[facility] [place] (DEFAULT)[address] [place] [address] CHEM 7 (LYTES,BUN,CREA,GLUC) on 08-29-2023 Anion gap [Moles/Vol] 13 mmol/L 7 - 17 mmol/L [facility] [place] Chloride [Moles/Vol] 105 mmol/L 98 - 10 8 mmol/L [facility] [place] CO2 [Moles/Vol] 20 mmol/L Low 21 - 31 mmol/L [facility] [place] Creatinine [Mass/Vol] 1.55 mg/dL High 0.70 - 1.30 mg/dL [facility] [place] eGFR, CKD-EPI, Male 54 Low - [facility]F [facility] Glucose [Mass/Vol] 108 mg/dL High 70 - 99 mg/dL [facility] [place] Osmolality Calc [Osmolality] 283 [facility] [place] Potassium [Moles/Vol] 4.5 mmol/L 3.5 - 5.0 mmol/L [facility] [place] Sodium [Moles/Vol] 133 mmol/L Low 135 - 145 mmol/L [facility] [place] Urea nitrogen [Mass/Vol] 19 mg/dL 7 - 25 mg/dL [facility] [place] Urea nitrogen/Creatinine [Mass ratio] 12 mg/mg [facility] [place] Anion gap [Moles/Vol] 13 mmol/L Normal 7-17 [facility] Comment on above: Performed By: #### M GO, CHM7, HFP, GGTB ####[facility] [place] (DEFAULT)[address] [facility] [place] [address] Chloride [Moles/Vol] 105 mmol/L Normal 98-108 [facility] Comment on above: Performed By: #### M GO, CHM7, HFP, GGTB ####[facility] [place] (DEFAULT)[address] [facility] [place] [address] CO2 [Moles/Vol] 20 mmol/L Low 21-31 [facility] Comment on above: Performed By: #### M GO, CHM7, HFP, GGTB ####[facility] [place] (DEFAULT)[address] [facility] [place] [address] Creatinine [Mass/Vol] 1.55 mg/dL High 0.70-1.30 [facility] Comment on above: Performed By: #### M GO, CHM7, HFP, GGTB ####[facility] [place] (DEFAULT)[address] [facility] [place] [address] GFR/1.73 sq M.predicted among non-blacks MDRD (S/P/Bld) [Vol rate/Area] 54 mL/min/{1.73_m2} Low >=60 [facility] Comment on above: Result Comment: Repo rted eGFR is based on the CKD-EPI 2020 equation using creatinine, age, and sex. Performed By: #### M GO, CHM7, HFP, GGTB ####[facility] [place] (DEFAULT)[address] [place] [address] Glucose [Mass/Vol] 108 mg/dL High 70-99 [facility] Comment on above: Performed By: #### M GO, CHM7, HFP, GGTB ####[facility] (DEFAULT)[address] [place] [address] Osmolality [Osmolality] 283 mosm/kg Normal 278-305 [facility] Comment on above: Performed By: #### M GO, CHM7, HFP, GGTB ####[facility] (DEFAULT)[address] [place] [address] Potassium [Moles/Vol] 4.5 mmol/L Normal 3.5-5.0 [facility] Comment on above: Performed By: #### M GO, CHM7, HFP, GGTB ####[facility] [place] (DEFAULT)[address] [place] [address] Sodium [Moles/Vol] 133 mmol/L Low 135-145 [facility] Comment on above: Performed By: #### M GO, CHM7, HFP, GGTB ####[facility] [place] (DEFAULT)[address] [place] [address] Urea nitrogen [Mass/Vol] 19 mg/dL Normal 7-25 [facility] Comment on above: Performed By: #### M GO, CHM7, HFP, GGTB ####[facility] [place] (DEFAULT)[address] [place] [address] Urea nitrogen/Creatinine [Mass ratio] 12 mg/mg Normal [facility] Comment on above: Performed By: #### M GO, CHM7, HFP, GGTB ####[facility] [place] (DEFAULT)[address] [place] [address] GGTon 08-29-2023 Gamma glutamyl transferase [Catalytic activity/Vol] 64 U/L 8 - 64 U/L [facility] Interpretation and review of laboratory results Normal [facility] Gamma glutamyl transferase [Catalytic activity/Vol] 64 U/L Normal 8-64 [facility] Comment on above: Performed By: #### M GO, CHM7, HFP, GGTB ####[facility] (DEFAULT)[address] [place] [address] HEPATIC FUNCTION PANELon Albumin [Mass/Vol] 3.3 g/dL Low 3.5 - 5.0 g/dL [facility] ALP [Catalytic activity/Vol] 103 U/L 32 - 126 U/L [facility] [place] ALT [Catalytic activity/Vol] 18 U/L 10 - 52 U/L [facility] [place] AST [Catalytic activity/Vol] 27 U/L 10 - 39 U/L [facility] [place] Bilirubin [Mass/Vol] 1.1 [facility]/dL [facility] [place] Bilirubin.direct [Mass/Vol] 0.3 mg/dL High NINF - 0.3 mg/dL [facility] [place] Protein [Mass/Vol] 6.8 g/dL 6.4 - 8.3 g/dL [facility] [place] Albumin [Mass/Vol] 3.3 g/dL Low 3.5-5.0 [facility] Comment on above: Performed By: #### M GO, CHM7, HFP, GGTB ####[facility] (DEFAULT)[address] [place] [address] ALP [Catalytic activity/Vol] 103 U/L Normal 32-126 [facility] Comment on above: Performed By: #### M GO, CHM7, HFP, GGTB ####[facility] (DEFAULT)[address] [place] [address] ALT [Catalytic activity/Vol] 18 U/L Normal 10-52 [facility] Comment on above: Performed By: #### M GO, CHM7, HFP, GGTB ####[facility] [place] (DEFAULT)[address] [facility] [place] [address] AST [Catalytic activity/Vol] 27 U/L Normal 10-39 [facility] Comment on above: Performed By: #### M GO, CHM7, HFP, GGTB ####[facility] [place] (DEFAULT)[address] [place] [address] Bilirubin [Mass/Vol] 1.1 mg/dL Normal <1.5 [facility] Comment on above: Performed By: #### M GO, CHM7, HFP, GGTB ####[facility] (DEFAULT)[address] [place] [address] Bilirubin.indirect [Mass/Vol] 0.3 mg/dL High <0.3 [facility] Comment on above: Performed By: #### M GO, CHM7, HFP, GGTB ####[facility] [place] (DEFAULT)[address] [place] [address] Protein [Mass/Vol] 6.8 g/dL Normal 6.4-8.3 [facility] Comment on above: Performed By: #### M GO, CHM7, HFP, GGTB ####[facility] (DEFAULT)[address] [facility] [place] [address] HISTOPLASMA AND BLASTOMYCES ANTIGEN, ENZYME IMMUNOASSAY, SERMon 08-29-2023 Histoplasma/Blastomy antonia Ag Result Detected Invalid Interpretation Code Not Detected [facility] Comment on above: Result Comment: Anti gen from Histoplasma or Blastomyces (unable todifferentiate) detected. Result should be correlated withclinical presentation, exposure history, and otherdiagnostic procedures, including culture, serology,histopathology, and/or radiographic findings, to aid in thedifferentiation between histoplasmosis and blastomycosis.CRITICAL RESULT Performed By: #### H IBAG ####[facility] (DEFAULT)[address] [facility] [place] [address] Histoplasma/Blastomy an[place]ia Ag Value 5.3 ng/mL Normal [facility] Comment on above: Result Comment: ---- ADDITIONAL INFORMATION This test was developed and its performance characteristicsdetermined by [facility] in a manner consistent with CLIArequirements. This test has not been cleared or approved bythe U.S. Food and Drug Administration.Test Performed by:[facility] [place] [id number] Director: Rosendo Bose M.D. Ph.D.; CLIA# [id number] Performed By: #### Lydia IBAG ####[facility] (DEFAULT)[address] [place] [address], [place] [address] HISTOPLASMA ANTIGEN,URINEon 08-29-2023 HISTOPLASM AG, URINE Not detected Normal Not Detected [facility] Comment on above: Result Comment: No H istoplasma antigen detected.False negative results may occur. Repeat testing on anew specimen should be considered if clinically indicated. Performed By: #### Noah HISTG ####[facility] (DEFAULT)[address] [place] [address], [place] [address] Histoplasma Ag Value Not detected Normal [facility] Comment on above: Result Comment: ---- ADDITIONAL INFORMATION This test has been modified from the dirt bike racer'sinstructions. Its performance characteristics weredetermined by [facility] in a manner consistent withCLIA requirements. This test has not been cleared orapproved by the U.S. Food and Drug Administration.Test Performed by:[facility] - [address] [address]ll Director: Rosendo Bose M.D. Ph.D.; CLIA# [id number] Performed By: #### Noah HISTG ####[facility] (DEFAULT)[address] [place] [address] MAGNESIUMon 08-29-2023 Interpretation and review of laboratory results Normal [facility] Magnesium [Mass/Vol] 1.7 mg/dL 1.6 - 2 .6 mg/dL [facility] Magnesium [Mass/Vol] 1.7 mg/dL Normal 1.6-2.6 [facility] Comment on above: Performed By: #### M GO, CHM7, HFP, GGTB ####[facility] (DEFAULT)[address] [place] [address] No Panel Informationon 08-29 Interpretation and review of laboratory results Abnormal [facility] PT,INR,PTTon 08-29-2023 aPTT Coag (PPP) [Time] 29.3 s [facility] INR Coag (Bld) [Relative time] 1.1 {INR} 0.9 - 1.1 [facility] Interpretation and review of laboratory results Normal [facility] PT Coag (PPP) [Time] 13.8 s [facility] aPTT Coag (Bld) [Time] 29.3 s Normal 24.0-34.3 [facility] Comment on above: Performed By: #### P TPTT ####[facility] (DEFAULT)[address] [place] [address] INR Coag (PPP) [Relative time] 1.1 {INR} Normal 0.9-1.1 [facility] Comment on above: Performed By: #### P TPTT ####[facility] (DEFAULT)[address] [place] [address] PT Coag (PPP) [Time] 13.8 s Normal 11.9-14.2 [facility] Comment on above: Performed By: #### P TPTT ####[facility] (DEFAULT)[address] [place] [address] Portable XR Chest Viewson RADIOLOGY RADIOLOGY [facility] Portable XR Chest ViewsOrder ed By: Gerald Baer on 08-29-2023 [facility] Work Phone: TACROLIMUS LEVEL, TROUGH ([place] E DRUG LEVEL)on 08-29-2023 Interpretation and review of laboratory results Normal [facility] Tacrolimus (Bld) [Mass/Vol] 8.9 ng/mL [facility] Tacrolimus, Trough 8.9 ng/mL Normal Bone Susana ow Transplant: 4.0-12.0, Therapeutic: 5.0-15.0 [facility] Comment on above: Order Comment: Pleas e draw at specified interval PRIOR to dose. Do not hold dose to wait for level. Specimens batched twice per day, (M-F) and once per day weekendsMethod performed is a chemiluminescent microparticle immunoasssay on the [employer] i2000.The range is based on experience at [facility] and users should be aware that target concentrations vary widely depending on concomitant therapy, time post-transplant, and desired degree of immunosuppression. Performed By: #### T ACRO ####[facility] (DEFAULT)[address] [place] [address] Tacrolimus, Trough 8.7 ng/mL Normal Bone Susana ow Transplant: 4.0-12.0, Therapeutic: 5.0-15.0 [facility] Comment on above: Order Comment: Pleas e draw at specified interval PRIOR to dose. Do not hold dose to wait for level. Specimens batched twice per day, (M-F) and once per day weekendsMethod performed is a chemiluminescent microparticle immunoasssay on the [employer] i2000.The range is based on experience at [facility] and users should be aware that target concentrations vary widely depending on concomitant therapy, time post-transplant, and desired degree of immunosuppression. Performed By: #### T ACRO ####[facility] (DEFAULT)[address] [place] [address] TACROLIMUS LEVEL, TROUGH ([place] E DRUG LEVEL)Ordered By: Roxanne Louie on 08-29-2023 Interpretation and review of laboratory results [facility] Tacrolimus (Bld) [Mass/Vol] 8.7 ng/mL [facility] URINALYSIS REFLEX TO CULTURE PERFORMABLEOrdered By: Shaji Kelly on 08-29-2023 Appearance (U) Clear Clear [facility] Bacteria LM Ql (Urine sed) ABSENT ABSENT [facility] Calcium Oxalate Crystals PRESENT U [facility] Color (U) Yellow Yellow [facility] Epithelial cells.squamous LM Ql (Urine sed) 0-2/hpf 0-2/hpf, 3-5/hpf = 1+ [facility] Glucose Test strip (U) [Mass/Vol] Negative Negative [facility] Interpretation and review of laboratory results Abnormal [facility] Ketones (U) [Mass/Vol] Negative Negative [facility] Leukocyte esterase Test strip Ql (U) Negative Negative [facility] Nitrite Ql (U) Negative Negative [facility] pH (U) 6.0 [pH] 5.0 - 7.0 [facility] Protein (U) [Mass/Vol] Negative Negative [facility] RBC (U) [#/Vol] Trace Abnormal Negative [facility] RBC LM.HPF (Urine sed) [#/Area] 3-5 Abnormal [facility] Specific gravity (U) [Rel density] 1.015 1.001 - 1.035 [facility] Urobilinogen (U) [Mass/Vol] 1.0 E.U./dL 0.2 E.U/dL, 1.0 E.U/dL [facility] WBC LM.HPF (Urine sed) [#/Area] 0 - 5 [facility] URINALYSIS REFLEX TO CULTURE PERFORMABLEon 08-29-2023 Appearance (U) Clear Normal Clear [facility] Comment on above: Order Comment: For i ndwelling catheters, specimen collection is acceptable on catheter day 1 and 2 only. ? Performed By: #### U [id number] ####[facility] (DEFAULT)[address] [place] [address] Bacteria ABSENT Normal ABSENT [facility] Comment on above: Order Comment: For i ndwelling catheters, specimen collection is acceptable on catheter day 1 and 2 only. ? Performed By: #### U [id number] ####[facility] (DEFAULT)[address] [place] [address] Blood Urine Trace Abnormal Negative [facility] Comment on above: Order Comment: For i ndwelling catheters, specimen collection is acceptable on catheter day 1 and 2 only. ? Performed By: #### U [id number] ####[facility] (DEFAULT)[address] [facility] [place] [address] Calcium Oxalate Crystals PRESENT Normal [facility] Comment on above: Order Comment: For i ndwelling catheters, specimen collection is acceptable on catheter day 1 and 2 only. ? Performed By: #### U [id number] ####[facility] (DEFAULT)[address] [place] [address] Color (U) Yellow Normal Yellow [facility] Comment on above: Order Comment: For i ndwelling catheters, specimen collection is acceptable on catheter day 1 and 2 only. ? Performed By: #### U [id number] ####[facility] (DEFAULT)[address] [place] [address] Glucose Ql (U) Negative Normal Negative [facility] Comment on above: Order Comment: For i ndwelling catheters, specimen collection is acceptable on catheter day 1 and 2 only. ? Performed By: #### U [id number] ####[facility] (DEFAULT)[address] [place] [address] Ketones Ql (U) Negative Normal Negative [facility] Comment on above: Order Comment: For i ndwelling catheters, specimen collection is acceptable on catheter day 1 and 2 only. ? Performed By: #### U [id number] ####[facility] (DEFAULT)[address] [place] [address] Leukocyte esterase Test strip Ql (U) Negative Normal Negative [facility] Comment on above: Order Comment: For i ndwelling catheters, specimen collection is acceptable on catheter day 1 and 2 only. ? Performed By: #### U [id number] ####[facility] (DEFAULT)[address] [place] [address] Nitrites Urine Negative Normal Negative [facility] Comment on above: Order Comment: For i ndwelling catheters, specimen collection is acceptable on catheter day 1 and 2 only. ? Performed By: #### U [id number] ####[facility] (DEFAULT)[address] [facility] [place] [address] pH (U) 6.0 [pH] Normal 5.0-7.0 [facility] Comment on above: Order Comment: For i ndwelling catheters, specimen collection is acceptable on catheter day 1 and 2 only. ? Performed By: #### U [id number] ####[facility] (DEFAULT)[address] [facility] [place] [address] Protein Urine Negative Normal Negative [facility] Comment on above: Order Comment: For i ndwelling catheters, specimen collection is acceptable on catheter day 1 and 2 only. ? Performed By: #### U [id number] ####[facility] (DEFAULT)[address] [facility] [place] [address] RBC Urine 3-5 Abnormal 0-2 [facility] Comment on above: Order Comment: For i ndwelling catheters, specimen collection is acceptable on catheter day 1 and 2 only. ? Performed By: #### U [id number] ####[facility] (DEFAULT)[address] [facility] [place] [address] Specific [place] Urine 1.015 Normal 1.001-1.035 [facility] Comment on above: Order Comment: For i ndwelling catheters, specimen collection is acceptable on catheter day 1 and 2 only. ? Performed By: #### U [id number] ####[facility] (DEFAULT)[address] [facility] [place] [address] Squamous/Epithelial Cells 0-2/hpf Normal 0-2/hpf, 3-5/hpf = 1+ [facility] Comment on above: Order Comment: For i ndwelling catheters, specimen collection is acceptable on catheter day 1 and 2 only. ? Performed By: #### U [id number] ####[facility] (DEFAULT)[address] [facility] [place] [address] Urobilinogen Urine 1.0 E.U./dL Normal 0.2 E.U/d L, 1.0 E.U/dL [facility] Comment on above: Order Comment: For i ndwelling catheters, specimen collection is acceptable on catheter day 1 and 2 only. ? Performed By: #### U [id number] ####[facility] (DEFAULT)[address] [place] [address], [place] [address] WBC Urine 0 - 5 Normal 0 - 5 [facility] Comment on above: Order Comment: For i ndwelling catheters, specimen collection is acceptable on catheter day 1 and 2 only. ? Performed By: #### U [id number] ####[facility] (DEFAULT)[address] [place] [address], [place] [address] URINE CULTUREon 08-29-2023 Bacteria identified Cx Nom (U) No Growth Normal [facility] Comment on above: Order Comment: For i ndwelling catheters, specimen collection is acceptable on catheter day 1 and 2 only. Sung top vacutainer. Urine must be to the fill line to process (4mls). If minimum volume, send urine in a yellow top vacutainer tube. Performed By: #### U R ####[facility] (DEFAULT)[address] [place] [address], [place] [address] US RENAL TRANSPLANT SCANon 0 08-29-2023 US RENAL TRANSPLANT SCAN Normal [facility] US for transplanted kidney l imitedon 08-29-2023 RADIOLOGY RADIOLOGY [facility] Radiology Study observation (narrative) [facility] US for transplanted kidney l imitedOrdered By: Romana Matias on 08-29-2023 [facility] Work Phone: XR CHEST PORTABLEon 08-29-20 23 XR CHEST PORTABLE Normal [facility] BLOOD CULTUREon 08-28-2023 Bacteria identified Cx Nom (Unsp spec) NO GROWTH DAY 5 OF 5 Normal [facility] Comment on above: Order Comment: 2 [...] B LDCULT ####[facility] (DEFAULT)[address] [place] [address] Bacteria identified Cx Nom (Unsp spec) NO GROWTH DAY 5 OF 5 Normal [facility] Comment on above: Order Comment: 2 [...] B LDCULT ####[facility] (DEFAULT)[address] [place] [address] DARYL AURIS SCREEN BY PCRo n 08-28-2023 Daryl auris Screen by PCR Not detected Normal Not Detected [facility] Comment on above: Order Comment: This test was performed using a real-time PCR assay. This test was developed, and its performance characteristics determined by [facility] at [facility]. It has not been cleared or approved by the FDA. The laboratory is regulated under CLIA as qualified to perform high-complexity testing. This test is used for clinical purposes. It should not be regarded as investigational or for research. Performed By: #### C ANDIDA AURIS SCREEN BY PCR ####[facility] (DEFAULT)[address] [place] [address] CBC AND ELECTRONIC DIFFon Basophils (Bld) [#/Vol] K/uL 0.00 - 0.09 K/uL [facility] Basophils/100 WBC (Bld) 0.6 % [facility] Differential cell count method Nom (Bld) Electronic Differential [facility] Eosinophils (Bld) [#/Vol] 0.10 10*3/uL 0.00 - 0.48 K/uL [facility] Eosinophils/100 WBC (Bld) 2.1 % [facility] Erythrocyte distribution width (RBC) [Ratio] 13.4 % 10.9 - 14.3 % [facility] Hematocrit (Bld) [Volume fraction] 37.9 % Low 39.6 - 48.8 % [facility] Hemoglobin (Bld) [Mass/Vol] 12.4 g/dL Low 13.4 - 16.8 g/dL [facility] Immature granulocytes (Bld) [#/Vol] K/uL NINF - 0.07 K/uL [facility] Immature granulocytes/100 WBC (Bld) 0.6 % [facility] Interpretation and review of laboratory results Abnormal [facility] Lymphocytes (Bld) [#/Vol] 1.76 10*3/uL 0.83 - 3.57 K/uL [facility] Lymphocytes/100 WBC (Bld) 37.1 % [facility] MCH (RBC) [Entitic mass] 27.8 pg 26.1 - 33.3 pg [facility] MCHC (RBC) [Mass/Vol] 32.7 g/dL 31.9 - 36.5 g/dL [facility] MCV (RBC) [Entitic vol] 85.0 fL 79.0 - 94.5 fL [facility] Monocytes (Bld) [#/Vol] 0.66 10*3/uL 0.24 - 0.93 K/uL [facility] Monocytes/100 WBC (Bld) 13.9 % [facility] Neutrophils (Bld) [#/Vol] 2.16 10*3/uL 1.57 - 6.19 K/uL [facility] Nucleated RBC/100 WBC (Bld) [Ratio] 0.0 % NINF [facility] Platelet mean volume (Bld) [Entitic vol] 9.3 fL 8.7 - 12.3 fL [facility] Platelets (Bld) [#/Vol] 262 10*3/uL 146 - 337 K/uL [facility] RBC (Bld) [#/Vol] 4.46 10*6/uL [facility] Segmented neutrophils/100 WBC (Bld) 45.7 % [facility] WBC (Bld) [#/Vol] 4.74 10*3/uL 3.73 - 10. 10 K/uL [facility] Abs Baso Auto < Normal 0.00-0.09 [facility] Comment on above: Performed By: #### L [id number] ####[facility] (DEFAULT)[address] [place] [address] Basophils/100 WBC (Bld) 0.6 % Normal [facility] Comment on above: Performed By: #### L [id number] ####[facility] (DEFAULT)[address] [place] [address] DIFF STATUS Electronic Differential Normal [facility] Comment on above: Performed By: #### L [id number] ####[facility] (DEFAULT)[address] [place] [address] Eosinophils (Bld) [#/Vol] 0.10 10*3/uL Normal 0.00-0.48 [facility] Comment on above: Performed By: #### L [id number] ####[facility] (DEFAULT)[address] [place] [address] Eosinophils/100 WBC (Bld) 2.1 % Normal [facility] Comment on above: Performed By: #### L [id number] ####[facility] (DEFAULT)[address] [place] [address] Hematocrit (Bld) [Volume fraction] 37.9 % Low 39.6-48.8 [facility] Comment on above: Performed By: #### L [id number] ####[facility] (DEFAULT)[address] [place] [address], [place] [address] Hemoglobin (Bld) [Mass/Vol] 12.4 g/dL Low 13.4-16.8 [facility] Comment on above: Performed By: #### L [id number] ####[facility] (DEFAULT)[address] [place] [address], [place] [address] Immature Grans % 0.6 % Normal [facility] Comment on above: Performed By: #### L [id number] ####[facility] (DEFAULT)[address] [place] [address], [place] [address] Immature Grans Absolute < Normal <=0.07 [facility] Comment on above: Performed By: #### L [id number] ####[facility] (DEFAULT)[address] [place] [address] Lymphocytes (Bld) [#/Vol] 1.76 10*3/uL Normal 0.83-3.57 [facility] Comment on above: Performed By: #### L [id number] ####[facility] (DEFAULT)[address] [place] [address], [place] [address] Lymphocytes/100 WBC (Bld) 37.1 % Normal [facility] Comment on above: Performed By: #### L [id number] ####[facility] (DEFAULT)[address] [place] [address] MCV (RBC) [Entitic vol] 85.0 fL Normal 79.0-94.5 [facility] Comment on above: Performed By: #### L [id number] ####[facility] (DEFAULT)[address] [place] [address] [place] [address] Mean Cell Hgb 27.8 pg Normal 26.1-33.3 [facility] Comment on above: Performed By: #### L [id number] ####[facility] (DEFAULT)[address] [facility] [place] [address] Mean Cell Hgb Conc 32.7 g/dL Normal 31.9-36.5 [facility] Comment on above: Performed By: #### L [id number] ####[facility] (DEFAULT)[address] [facility] [place] [address] Monocytes (Bld) [#/Vol] 0.66 10*3/uL Normal 0.24-0.93 [facility] Comment on above: Performed By: #### L [id number] ####[facility] (DEFAULT)[address] [facility] [place] [address] Monocytes/100 WBC (Bld) 13.9 % Normal [facility] Comment on above: Performed By: #### L [id number] ####[facility] (DEFAULT)[address] [facility] [place] [address] Nucleated RBC 0.0 /100 WBC Normal <=0.2 [facility] Comment on above: Performed By: #### L [id number] ####[facility] (DEFAULT)[address] [facility] [place] [address] Platelet mean volume (Bld) [Entitic vol] 9.3 fL Normal 8.7-12.3 [facility] Comment on above: Performed By: #### L [id number] ####[facility] (DEFAULT)[address] [facility] [place] [address] Platelets (Bld) [#/Vol] 262 10*3/uL Normal 146-337 [facility] Comment on above: Performed By: #### L [id number] ####[facility] (DEFAULT)[address] [facility] [place] [address] RBC (Bld) [#/Vol] 4.46 10*6/uL Normal 4.38-5.83 [facility] Comment on above: Performed By: #### L [id number] ####[facility] (DEFAULT)[address] [facility] [place] [address] RBC Distribution 13.4 % Normal 10.9-14.3 [facility] Comment on above: Performed By: #### L [id number] ####[facility] (DEFAULT)[address] [facility] [place] [address] Segs + Bands Auto 45.7 % Normal [facility] Comment on above: Performed By: #### L [id number] ####[facility] (DEFAULT)[address] [facility] [place] [address] Segs + Bands,Absolute Auto 2.16 K/uL Normal 1.57-6.19 [facility] Comment on above: Performed By: #### L [id number] ####[facility] (DEFAULT)[address] [facility] [place] [address] WBC (Bld) [#/Vol] 4.74 10*3/uL Normal 3.73-10.10 [facility] Comment on above: Performed By: #### L [id number] ####[facility] (DEFAULT)[address] [place] [address] CHEM 6 (LYTES, BUN CREA)on 0 08-28-2023 Anion gap [Moles/Vol] 13 mmol/L 7 - 17 mmol/L [facility] Chloride [Moles/Vol] 103 mmol/L 98 - 10 8 mmol/L [facility] CO2 [Moles/Vol] 22 mmol/L 21 - 31 mmol/L [facility] Creatinine [Mass/Vol] 1.62 mg/dL High 0.70 - 1.30 mg/dL [facility] eGFR, CKD-EPI, Male 52 Low - PINF [facility] Interpretation and review of laboratory results Abnormal [facility] Potassium [Moles/Vol] 4.3 mmol/L 3.5 - 5.0 mmol/L [facility] Sodium [Moles/Vol] 134 mmol/L Low 135 - 145 mmol/L [facility] Urea nitrogen [Mass/Vol] 22 mg/dL 7 - 25 mg/dL [facility] Urea nitrogen/Creatinine [Mass ratio] 14 mg/mg [facility] Anion gap [Moles/Vol] 13 mmol/L Normal 7-17 [facility] Comment on above: Performed By: #### C HM6 ####[facility] (DEFAULT)[address] [facility] [place] [address] Chloride [Moles/Vol] 103 mmol/L Normal 98-108 [facility] Comment on above: Performed By: #### C HM6 ####[facility] (DEFAULT)[address] [facility] [place] [address] CO2 [Moles/Vol] 22 mmol/L Normal 21-31 [facility] Comment on above: Performed By: #### C HM6 ####[facility] (DEFAULT)[address] [facility] [place] [address] Creatinine [Mass/Vol] 1.62 mg/dL High 0.70-1.30 [facility] Comment on above: Performed By: #### C HM6 ####[facility] (DEFAULT)[address] [facility] [place] [address] GFR/1.73 sq M.predicted among non-blacks MDRD (S/P/Bld) [Vol rate/Area] 51 mL/min/{1.73_m2} Low >=60 [facility] Comment on above: Result Comment: Repo rted eGFR is based on the CKD-EPI 2020 equation using creatinine, age, and sex. Performed By: #### C HM6 ####[facility] (DEFAULT)[address] [facility] [place] [address] Potassium [Moles/Vol] 4.3 mmol/L Normal 3.5-5.0 [facility] Comment on above: Performed By: #### C HM6 ####[facility] (DEFAULT)[address] [facility] [place] [address] Sodium [Moles/Vol] 134 mmol/L Low 135-145 [facility] Comment on above: Performed By: #### C HM6 ####[facility] (DEFAULT)[address] [place] [address] Urea nitrogen [Mass/Vol] 22 mg/dL Normal 7-25 [facility] Comment on above: Performed By: #### C HM6 ####[facility] (DEFAULT)[address] [place] [address] Urea nitrogen/Creatinine [Mass ratio] 14 mg/mg Normal [facility] Comment on above: Performed By: #### C HM6 ####[facility] (DEFAULT)[address] [place] [address] IMMUNOCOMPROMISED RESPIRATOR Y PANELon 08-28-2023 Adenovirus - Pcr Not detected Normal Not Detected [facility] Comment on above: Order Comment: [...] By: #### I CRESP ####[facility] (DEFAULT)[address] [place] [address] Bordetella Parapertussis Not detected Normal Not Detected [facility] Comment on above: Order Comment: [...] I CRESP ####[facility] (DEFAULT)[address] [place] [address], [place] [address] Bordetella Pertussis Not detected Normal Not Detected [facility] Comment on above: Order Comment: [...] I CRESP ####[facility] (DEFAULT)[address] [place] [address] Chlamydia Pneumoniae Not detected Normal Not Detected [facility] Comment on above: Order Comment: [...] I CRESP ####[facility] (DEFAULT)[address] [place] [address], [place] [address] Coronavirus 229E Not detected Normal Not Detected [facility] Comment on above: Order Comment: [...] I CRESP ####[facility] (DEFAULT)[address] [place] [address], [place] [address] Coronavirus Hku1 Not detected Normal Not Detected [facility] Comment on above: Order Comment: [...] I CRESP ####[facility] (DEFAULT)[address] [place] [address], [place] [address] Coronavirus Nl63 Not detected Normal Not Detected [facility] Comment on above: Order Comment: [...] I CRESP ####[facility] (DEFAULT)[address] [place] [address], [place] [address] Coronavirus Oc43 Not detected Normal Not Detected [facility] Comment on above: Order Comment: [...] I CRESP ####[facility] (DEFAULT)[address] [place] [address], [place] [address] Influenza A - Pcr Not detected Normal Not Detected [facility] Comment on above: Order Comment: Viral [...] I CRESP ####[facility] (DEFAULT)[address] [place] [address], [place] [address] Influenza B - Pcr Not detected Normal Not Detected [facility] Comment on above: Order Comment: Viral [...] I CRESP ####[facility] (DEFAULT)[address] [place] [address], [place] [address] Metapneumovirus - Pcr Not detected Normal Not Detected [facility] Comment on above: Order Comment: [...] I CRESP ####[facility] (DEFAULT)[address] [place] [address], [place] [address] Mycoplasma Pneumoniae Not detected Normal Not Detected [facility] Comment on above: Order Comment: [...] I CRESP ####[facility] (DEFAULT)[address] [place] [address], [place] [address] Parainfluenza 1 - Pcr Not detected Normal Not Detected [facility] Comment on above: Order Comment: [...] I CRESP ####[facility] (DEFAULT)[address] [facility] [place] [address] Parainfluenza 2 - Pcr Not detected Normal Not Detected [facility] Comment on above: Order Comment: [...] I CRESP ####[facility] (DEFAULT)[address] [place] [address], [place] [address] Parainfluenza 3 - Pcr Not detected Normal Not Detected [facility] Comment on above: Order Comment: [...] I CRESP ####[facility] (DEFAULT)[address] [place] [address] Parainfluenza 4 - Pcr Not detected Normal Not Detected [facility] Comment on above: Order Comment: [...] I CRESP ####[facility] (DEFAULT)[address] [place] [address], [place] [address] Rhinovirus/Enterovir us - PCR Not detected Normal Not Detected [facility] Comment on above: Order Comment: [...] I CRESP ####[facility] (DEFAULT)[address] [place] [address] Rsv - Pcr Not detected Normal Not Detected [facility] Comment on above: Order Comment: [...] I CRESP ####[facility] (DEFAULT)[address] [place] [address] SARS-CoV-2 (COVID-19) RNA ESTELITA+probe Ql (Unsp spec) Not detected Normal NOT DETECTED [facility] Comment on above: Order Comment: [...] I CRESP ####[facility] (DEFAULT)[address] [place] [address] Portable XR Chest Viewson Radiology Study observation (narrative) [facility] Respiratory virus DNA+RNA NA A+probe Nom (Unsp spec)Ordered By: Dayami Harris on 08-28-2023 Adenovirus DNA ESTELITA+probe Nom (Unsp spec) Not detected Not Detected [facility] B. parapertussis DNA ESTELITA+probe Ql (Unsp spec) Not detected Not [facility]ed [facility] B. pertussis DNA ESTELITA+probe Ql (Unsp spec) Not detected Not Detected [facility] C. pneumoniae DNA ESTELITA+probe Ql (Unsp spec) Not detected Not Detected [facility] FLUAV RNA ESTELITA+probe Ql (Unsp spec) Not detected Not Detected [facility] FLUBV RNA ESTELITA+probe Ql (Unsp spec) Not detected Not Detected [facility] HCoV 229E RNA ESTELITA+non-probe Ql (Nph) Not detected Not Detected [facility] HCoV HKU1 RNA ESTELITA+non-probe Ql (Nph) Not detected Not Detected [facility] HCoV NL63 RNA ESTELITA+non-probe Ql (Nph) Not detected Not Detected [facility] HCoV OC43 RNA ESTELITA+non-probe Ql (Nph) Not detected Not Detected [facility] hMPV A RNA ESTELITA+probe Ql (Unsp spec) Not detected Not Detected [facility] Interpretation and review of laboratory results Normal [facility] M. pneumoniae DNA ESTELITA+probe Ql (Unsp spec) Not detected Not Detected [facility] Parainfluenza virus 1 RNA ESTELITA+probe Ql (Unsp spec) Not detected Not Detected [facility] Parainfluenza virus 2 RNA ESTELITA+probe Ql (Unsp spec) Not detected Not Detected [facility] Parainfluenza virus 3 RNA ESTELITA+probe Ql (Unsp spec) Not detected Not Detected [facility] Parainfluenza virus 4 RNA ESTELITA+probe Ql (Unsp spec) Not detected Not Detected [facility] Rhinovirus+Enterovir us RNA ESTELITA+probe Ql (Unsp spec) Not detected Not Detected [facility] RSV RNA ESTELITA+probe Ql (Unsp spec) Not detected Not Detected [facility] SARS-CoV-2 (COVID-19) RNA ESTELITA+probe Ql (Unsp spec) Not detected NOT DETECTED [facility] ALBUMINon 04-28-2023 Albumin [Mass/Vol] 4.0 g/dL Normal 3.4-5.0 [facility] Comment on above: Performed By: #### C MP #### [facility] [address] [place] [address] Dr. Dwight Waters ALKALINE PHOSPHAon ALP [Catalytic activity/Vol] 106 U/L Normal 46-116 [facility] Comment on above: Performed By: #### F [id number] #### [facility] [address] [place] [address] Dr. Dwight Waters BILIRUBIN CONJUGATED (DIRECT )on 04-28-2023 BILI, CONJUGATED 0.3 mg/dL Critically high 0.0-0.2 [facility] Comment on above: Performed By: #### C MP #### [facility] [address] [place] [address] Dr. Dwight Waters BILIRUBIN TOTALon 04-28-2023 Bilirubin [Mass/Vol] 1.4 mg/dL Critically high 0.2-1.0 [facility] Comment on above: Performed By: #### C MP #### [facility] [address] [place] [address] Dr. Dwight Waters BUNon 04-28-2023 Urea nitrogen [Mass/Vol] 12.0 mg/dL Normal 7.0-18.0 [facility] Comment on above: Performed By: #### U RTPCR #### [facility] [address] [place] [address] Dr. Dwight Waters CALCIUMon 04-28-2023 Calcium [Mass/Vol] 9.3 mg/dL Normal 8.5-10.1 [facility] Comment on above: Performed By: #### U RTPCR #### [facility] [address] [place] [address] Dr. Dwight Waters CBC AUTO DIFFon 04-28-2023 BASO # 0.1 103/ul Normal 0.0-0.1 [facility] Comment on above: Performed By: #### C BC #### [facility] [address] [place] [address] Dr. Dwight Waters Basophils/100 WBC (Bld) 0.9 % Normal 0.2-2.0 [facility] Comment on above: Performed By: #### C BC #### [facility] [address] [place] [address] Dr. Dwight Waters EO # 0.2 103/ul Normal 0.0-0.7 [facility] Comment on above: Performed By: #### C BC #### [facility] [address] [place] [address] Dr. Dwight Waters Eosinophils/100 WBC (Bld) 3.8 % Normal 0.9-7.0 [facility] Comment on above: Performed By: #### C BC #### [facility] [address] [place] [address] Dr. Dwight Waters Erythrocyte distribution width (RBC) [Ratio] 12.5 % Normal 11.0-15.0 [facility] Comment on above: Performed By: #### C BC #### [facility] [address] [place] [address] Dr. Dwight Waters Hematocrit (Bld) [Volume fraction] 49.8 % Normal 42.0-54.0 [facility] Comment on above: Performed By: #### C BC #### [facility] [address] [place] [address] Dr. Dwight Watres Hemoglobin (Bld) [Mass/Vol] 16.4 g/dL Normal 14.0-18.0 [facility] Comment on above: Performed By: #### C BC #### [facility] [address] [place] [address] Dr. Dwight Waters IG # 0.01 10e3/ul Normal 0.00-0.03 [facility] Comment on above: Performed By: #### C BC #### [facility] [address] [place] [address] Dr. Dwight Waters IG % 0.2 % Normal 0.0-0.5 [facility] Comment on above: Performed By: #### C BC #### [facility] [address] [place] [address] Dr. Dwight Waters LYMPH # 2.1 103/ul Normal 1.2-3.8 [facility] Comment on above: Performed By: #### C BC #### [facility] [address] [place] [address] Dr. Dwight Waters Lymphocytes/100 WBC (Bld) 39.1 % Normal 20.5-60.0 [facility] Comment on above: Performed By: #### C BC #### [facility] [address] [place] [address] Dr. Dwight Waters MANUAL DIFF REQ NO Normal [facility] Comment on above: Performed By: #### C BC #### [facility] [address] [place] [address] Dr. Dwight Waters MCH (RBC) [Entitic mass] 28.6 pg Normal 25.9-34.0 [facility] Comment on above: Performed By: #### C BC #### [facility] [address] [place] [address] Dr. Dwight Waters MCHC (RBC) [Mass/Vol] 32.9 g/dL Normal 29.9-35.2 [facility] Comment on above: Performed By: #### C BC #### [facility] [address] [place] [address] Dr. Dwight Waters MCV (RBC) [Entitic vol] 86.9 fL Normal 80.0-94.0 [facility] Comment on above: Performed By: #### C BC #### [facility] [address] [place] [address] Dr. Dwight Waters MONO # 0.6 103/ul Normal 0.3-0.8 [facility] Comment on above: Performed By: #### C BC #### [facility] [address] [place] [address] Dr. Dwight Waters Monocytes/100 WBC (Bld) 10.6 % Normal 1.7-12.0 [facility] Comment on above: Performed By: #### C BC #### [facility] [address] [place] [address] Dr. Dwight Waters NEUT # 2.5 103/ul Normal 1.4-6.5 [facility] Comment on above: Performed By: #### C BC #### [facility] [address] [place] [address] Dr. Dwight Waters Neutrophils/100 WBC (Bld) 45.4 % Normal 43.0-75.0 [facility] Comment on above: Performed By: #### C BC #### [facility] [address] [place] [address] Dr. Dwight Waters Platelet mean volume (Bld) [Entitic vol] 9.3 fL Critically low 9.5-13.5 [facility] Comment on above: Performed By: #### C BC #### [facility] [address] [place] [address] Dr. Dwight Waters PLT 248 103/ul Normal 150-450 [facility] Comment on above: Performed By: #### C BC #### [facility] [address] [place] [address] Dr. Dwight Waters RBC 5.73 106/ul Normal 4.70-6.10 [facility] Comment on above: Performed By: #### C BC #### [facility] [address] [place] [address] Dr. Dwight Waters WBC 5.5 103/ul Normal 4.0-11.0 [facility] Comment on above: Performed By: #### C BC #### [facility] [address] [place] [address] Dr. Dwight Waters CHLORIDEon 04-28-2023 Chloride [Moles/Vol] 107 mmol/L Normal 98-107 [facility] Comment on above: Performed By: #### U RTPCR #### [facility] [address] [place] [address] Dr. Dwight Waters CO2on 04-28-2023 CO2 [Moles/Vol] 28.9 mmol/L Normal 21.0-32.0 [facility] Comment on above: Performed By: #### U RTPCR #### [facility] [address] [place] [address] Dr. Dwight Waters CREATININEon 04-28-2023 Creatinine [Mass/Vol] 1.17 mg/dL Normal 0.70-1.30 [facility] Comment on above: Performed By: #### U RTPCR #### [facility] [address] [address] [address] Dwight Waters EGFR-AF GRENADIAN >60 Normal >=60 [facility] Comment on above: Performed By: #### U RTPCR #### [facility] [address] [address] [address] Dwight Waters EGFR-NON AF GRENADIAN >60 Normal >=60 [facility] Comment on above: Performed By: #### U RTPCR #### [facility] [address] [address] [address] Dwight Waters GGTon 04-28-2023 Gamma glutamyl transferase [Catalytic activity/Vol] 27 U/L Normal 15-85 [facility] Comment on above: Performed By: #### U RTPCR #### [facility] [address] [place] [address] Dr. Dwight Waters GLUCOSE BLOODon 04-28-2023 Glucose [Mass/Vol] 110 mg/dL Critically high 74-106 [facility] Comment on above: Performed By: #### U RTPCR #### [facility] [address] [address] [address] Dwight Waters MAGNESIUMon 04-28-2023 Magnesium [Mass/Vol] 1.7 mg/dL Critically low 1.8-2.4 [facility] Comment on above: Performed By: #### U RTPCR #### [facility] [address] [place] [address] Dr. Dwight Waters NAon 04-28-2023 Sodium [Moles/Vol] 144 mmol/L Normal 136-145 [facility] Comment on above: Performed By: #### U RTPCR #### [facility] [address] [address] [address] Dwight Waters PHOSPHORUSon 04-28-2023 Phosphate [Mass/Vol] 3.2 mg/dL Normal 2.6-4.7 [facility] Comment on above: Performed By: #### U RTPCR #### [facility] [address] [place] [address] Dr. Dwight Waters POTASSIUMon 04-28-2023 Potassium [Moles/Vol] 4.0 mmol/L Normal 3.5-5.1 [facility] Comment on above: Performed By: #### U RTPCR #### [facility] [address] [place] [address] Dr. Dwight OLVERAOTon 04-28-2023 AST [Catalytic activity/Vol] 25 U/L Normal 15-37 [facility] Comment on above: Performed By: #### C MP #### [facility] [address] [place] [address] Dr. Dwight Waters SGPTon 04-28-2023 ALT [Catalytic activity/Vol] 40 U/L Normal 16-63 [facility] Comment on above: Performed By: #### C MP #### [facility] [address] [place] [address] Dr. Dwight Waters URINE T PROTEIN CREAT RATIOo n 04-28-2023 Protein (U) [Mass/Vol] 10.1 mg/dL Normal <=12.0 [facility] Comment on above: Performed By: #### U RTPCR #### [facility] [address] [place] [address] Dr. Dwight Waters UR PROT CREAT RAT 0.14 Normal [facility] Comment on above: Performed By: #### U RTPCR #### [facility] [address] [place] [address] Dr. Dwight Waters URINE CREAT 74.40 mg/dL Normal 20.00-300.00 [facility] Comment on above: Performed By: #### U RTPCR #### [facility] [address] [place] [address] Dr. Dwight Waters BK VIRUS PCR QUANTon 023 BKV DNA QUANT PCR PLASMA Negative Normal Negative [facility] Comment on above: Result Comment: No B K DNA detected. . The linear range of the assay is 22 - 100,000,000 IU/mL. Performed By: #### B KVIRUS #### [facility] [address] [place] [address] Dr. Dwight Waters Log10 BKV DNA Plasma Normal [facility] Comment on above: Performed By: #### B KVIRUS #### [facility] [address] [place] [address] Dr. Dwight Waters FK506 (TACROLIMUS) WHOLE BLO ODon 03-04-2023 Tacrolimus (FK506), Blood 5.9 ng/mL Normal 2.0-20.0 [facility] Comment on above: Result Comment: Trou gh (immediately following transplant) 15.0 . Trough (steady state, 2 weeks or more after transplant): 3.0 - 8.0 . Performed by LC-MS/MS technology. Performed By: #### C MP #### [facility] [address] [place] [address] Dr. Dwight Waters ALBUMINon 03-02-2023 Albumin [Mass/Vol] 3.9 g/dL Normal 3.4-5.0 [facility] Comment on above: Performed By: #### U RTPCR #### [facility] [address] [place] [address] Dr. Dwight Waters ALKALINE PHOSPHAon ALP [Catalytic activity/Vol] 105 U/L Normal 46-116 [facility] Comment on above: Performed By: #### U RTPCR #### [facility] [address] [place] [address] Dr. Dwight Waters BILIRUBIN CONJUGATED (DIRECT )on 03-02-2023 BILI, CONJUGATED 0.2 mg/dL Normal 0.0-0.2 [facility] Comment on above: Performed By: #### U RTPCR #### [facility] [address] [place] [address] Dr. Dwight Waters BILIRUBIN TOTALon 03-02-2023 Bilirubin [Mass/Vol] 0.9 mg/dL Normal 0.2-1.0 [facility] Comment on above: Performed By: #### U RTPCR #### [facility] [address] [place] [address] Dr. Dwight Waters CBC AUTO DIFFon 03-02-2023 BASO # 0.1 103/ul Normal 0.0-0.1 [facility] Comment on above: Performed By: #### C BC #### [facility] [address] [place] [address] Dr. Dwight Waters Basophils/100 WBC (Bld) 0.9 % Normal 0.2-2.0 [facility] Comment on above: Performed By: #### C BC #### [facility] [address] [place] [address] Dr. Dwight Waters EO # 0.2 103/ul Normal 0.0-0.7 [facility] Comment on above: Performed By: #### C BC #### [facility] [address] [place] [address] Dr. Dwight Waters Eosinophils/100 WBC (Bld) 3.5 % Normal 0.9-7.0 [facility] Comment on above: Performed By: #### C BC #### [facility] [address] [place] [address] Dr. Dwight Waters Erythrocyte distribution width (RBC) [Ratio] 12.7 % Normal 11.0-15.0 [facility] Comment on above: Performed By: #### C BC #### [facility] [address] [place] [address] Dr. Dwight Watres Hematocrit (Bld) [Volume fraction] 48.2 % Normal 42.0-54.0 [facility] Comment on above: Performed By: #### C BC #### [facility] [address] [place] [address] Dr. Dwight Waters Hemoglobin (Bld) [Mass/Vol] 15.9 g/dL Normal 14.0-18.0 [facility] Comment on above: Performed By: #### C BC #### [facility] [address] [place] [address] Dr. Dwight Waters IG # 0.01 10e3/ul Normal 0.00-0.03 [facility] Comment on above: Performed By: #### C BC #### [facility] [address] [place] [address] Dr. Dwight Waters IG % 0.2 % Normal 0.0-0.5 [facility] Comment on above: Performed By: #### C BC #### [facility] [address] [place] [address] Dr. Dwight Waters LYMPH # 2.1 103/ul Normal 1.2-3.8 [facility] Comment on above: Performed By: #### C BC #### [facility] [address] [place] [address] Dr. Dwight Waters Lymphocytes/100 WBC (Bld) 37.4 % Normal 20.5-60.0 [facility] Comment on above: Performed By: #### C BC #### [facility] [address] [place] [address] Dr. Dwight Waters MANUAL DIFF REQ NO Normal [facility] Comment on above: Performed By: #### C BC #### [facility] [address] [place] [address] Dr. Dwight Waters MCH (RBC) [Entitic mass] 28.3 pg Normal 25.9-34.0 [facility] Comment on above: Performed By: #### C BC #### [facility] [address] [place] [address] Dr. Dwight Waters MCHC (RBC) [Mass/Vol] 33.0 g/dL Normal 29.9-35.2 [facility] Comment on above: Performed By: #### C BC #### [facility] [address] [place] [address] Dr. Dwight Waters MCV (RBC) [Entitic vol] 85.8 fL Normal 80.0-94.0 [facility] Comment on above: Performed By: #### C BC #### [facility] [address] [place] [address] Dr. Dwight Waters MONO # 0.6 103/ul Normal 0.3-0.8 [facility] Comment on above: Performed By: #### C BC #### [facility] [address] [place] [address] Dr. Dwight Waters Monocytes/100 WBC (Bld) 10.2 % Normal 1.7-12.0 [facility] Comment on above: Performed By: #### C BC #### [facility] [address] [place] [address] Dr. Dwight Waters NEUT # 2.7 103/ul Normal 1.4-6.5 [facility] Comment on above: Performed By: #### C BC #### [facility] [address] [place] [address] Dr. Dwight Waters Neutrophils/100 WBC (Bld) 47.8 % Normal 43.0-75.0 [facility] Comment on above: Performed By: #### C BC #### [facility] [address] [place] [address] Dr. Dwight Waters Platelet mean volume (Bld) [Entitic vol] 9.3 fL Critically low 9.5-13.5 [facility] Comment on above: Performed By: #### C BC #### [facility] [address] [place] [address] Dr. Dwight Waters PLT 241 103/ul Normal 150-450 [facility] Comment on above: Performed By: #### C BC #### [facility] [address] [place] [address] Dr. Dwight Waters RBC 5.62 106/ul Normal 4.70-6.10 [facility] Comment on above: Performed By: #### C BC #### [facility] [address] [place] [address] Dr. Dwight Waters WBC 5.7 103/ul Normal 4.0-11.0 [facility] Comment on above: Performed By: #### C BC #### [facility] [address] [place] [address] Dr. Dwight Waters GGTon 03-02-2023 Gamma glutamyl transferase [Catalytic activity/Vol] 25 U/L Normal 15-85 [facility] Comment on above: Performed By: #### U RTPCR #### [facility] [address] [place] [address] Dr. Dwight Waters MAGNESIUMon 03-02-2023 Magnesium [Mass/Vol] 1.6 mg/dL Critically low 1.8-2.4 [facility] Comment on above: Performed By: #### U RTPCR #### [facility] [address] [place] [address] Dr. Dwight Waters PHOSPHORUSon 03-02-2023 Phosphate [Mass/Vol] 3.6 mg/dL Normal 2.6-4.7 [facility] Comment on above: Performed By: #### U RTPCR #### [facility] [address] [place] [address] Dr. Dwight Waters PROF CHEM 8 (BAS METB)on Anion gap [Moles/Vol] 9.4 mmol/L Normal [facility] Comment on above: Performed By: #### U RTPCR #### [facility] [address] [place] [address] Dr. Dwight Waters Calcium [Mass/Vol] 9.3 mg/dL Normal 8.5-10.1 [facility] Comment on above: Performed By: #### U RTPCR #### [facility] [address] [place] [address] Dr. Dwight Waters Chloride [Moles/Vol] 108 mmol/L Critically high 98-107 [facility] Comment on above: Performed By: #### U RTPCR #### [facility] [address] [place] [address] Dr. Dwight Waters CO2 [Moles/Vol] 27.2 mmol/L Normal 21.0-32.0 [facility] Comment on above: Performed By: #### U RTPCR #### [facility] [address] [place] [address] Dr. Dwight Waters Creatinine [Mass/Vol] 1.12 mg/dL Normal 0.70-1.30 [facility] Comment on above: Performed By: #### U RTPCR #### [facility] [address] [place] [address] Dr. Dwight Watesr EGFR-AF GRENADIAN >60 Normal >=60 [facility] Comment on above: Performed By: #### U RTPCR #### [facility] [address] [place] [address] Dr. Dwight Waters EGFR-NON AF GRENADIAN >60 Normal >=60 [facility] Comment on above: Performed By: #### U RTPCR #### [facility] [address] [place] [address] Dr. Dwight Waters Glucose [Mass/Vol] 113 mg/dL Critically high 74-106 [facility] Comment on above: Performed By: #### U RTPCR #### [facility] [address] [place] [address] Dr. Dwight Waters Potassium [Moles/Vol] 3.6 mmol/L Normal 3.5-5.1 [facility] Comment on above: Performed By: #### U RTPCR #### [facility] [address] [place] [address] Dr. Dwight Waters Sodium [Moles/Vol] 141 mmol/L Normal 136-145 [facility] Comment on above: Performed By: #### U RTPCR #### [facility] [address] [place] [address] Dr. Dwight Waters Urea nitrogen [Mass/Vol] 14.0 mg/dL Normal 7.0-18.0 [facility] Comment on above: Performed By: #### U RTPCR #### [facility] [address] [place] [address] Dr. Dwight Waters Urea nitrogen/Creatinine [Mass ratio] 12.5 mg/mg Normal [facility] Comment on above: Performed By: #### U RTPCR #### [facility] [address] [place] [address] Dr. Dwight Waters SGOTon 03-02-2023 AST [Catalytic activity/Vol] 20 U/L Normal 15-37 [facility] Comment on above: Performed By: #### U RTPCR #### [facility] [address] [place] [address] Dr. Dwight Waters SGPTon 03-02-2023 ALT [Catalytic activity/Vol] 30 U/L Normal 16-63 [facility] Comment on above: Performed By: #### U RTPCR #### [facility] [address] [place] [address] Dr. Dwight Waters URINE T PROTEIN CREAT RATIOo n 03-02-2023 Protein (U) [Mass/Vol] 10.3 mg/dL Normal <=12.0 [facility] Comment on above: Performed By: #### U RTPCR #### [facility] [address] [place] [address] Dr. Dwight Waters UR PROT CREAT RAT 0.15 Normal [facility] Comment on above: Performed By: #### U RTPCR #### [facility] [address] [place] [address] Dr. Dwight Waters URINE CREAT 68.96 mg/dL Normal 20.00-300.00 [facility] Comment on above: Performed By: #### U RTPCR #### [facility] [address] [place] [address] Dr. Dwight Waters BK VIRUS PCR QUANTon 023 BKV DNA QUANT PCR PLASMA Negative Normal Negative [facility] Comment on above: Result Comment: No B K DNA detected. . The linear range of the assay is 22 - 100,000,000 IU/mL. Performed By: #### C MP #### [facility] [address] [place] [address] Dr. Dwight Waters Log10 BKV DNA Plasma Normal [facility] Comment on above: Performed By: #### C MP #### [facility] [address] [place] [address] Dr. Dwight Waters FK506 (TACROLIMUS) WHOLE BLO ODon 12-31-2022 Tacrolimus (FK506), Blood 5.6 ng/mL Normal 2.0-20.0 [facility] Comment on above: Result Comment: Trou gh (immediately following transplant) 15.0 . Trough (steady state, 2 weeks or more after transplant): 3.0 - 8.0 . Performed by LC-MS/MS technology. Performed By: #### C MP #### [facility] [address] [place] [address] Dr. Dwight Waters ALKALINE PHOSPHAon ALP [Catalytic activity/Vol] 96 U/L Normal 46-116 [facility] Comment on above: Performed By: #### C BC #### [facility] [address] [place] [address] Dr. Dwight Waters BILIRUBIN CONJUGATED (DIRECT )on 12-29-2022 BILI, CONJUGATED 0.3 mg/dL Critically high 0.0-0.2 [facility] Comment on above: Performed By: #### C BC #### [facility] [address] [place] [address] Dr. Dwight Waters BILIRUBIN TOTALon 12-29-2022 Bilirubin [Mass/Vol] 1.1 mg/dL Critically high 0.2-1.0 [facility] Comment on above: Performed By: #### C BC #### [facility] [address] [place] [address] Dr. Dwight Waters CBC AUTO DIFFon 12-29-2022 BASO # 0.1 103/ul Normal 0.0-0.1 [facility] Comment on above: Performed By: #### C MP #### [facility] [address] [place] [address] Dr. Dwight Waters Basophils/100 WBC (Bld) 0.8 % Normal 0.2-2.0 [facility] Comment on above: Performed By: #### C MP #### [facility] [address] [place] [address] Dr. Dwight Waters EO # 0.2 103/ul Normal 0.0-0.7 [facility] Comment on above: Performed By: #### C MP #### [facility] [address] [place] [address] Dr. Dwight Waters Eosinophils/100 WBC (Bld) 3.0 % Normal 0.9-7.0 [facility] Comment on above: Performed By: #### C MP #### [facility] [address] [place] [address] Dr. Dwight Waters Erythrocyte distribution width (RBC) [Ratio] 12.9 % Normal 11.0-15.0 [facility] Comment on above: Performed By: #### C MP #### [facility] [address] [place] [address] Dr. Dwight Waters Hematocrit (Bld) [Volume fraction] 46.9 % Normal 42.0-54.0 [facility] Comment on above: Performed By: #### C MP #### [facility] [address] [place] [address] Dr. Dwight Waters Hemoglobin (Bld) [Mass/Vol] 16.1 g/dL Normal 14.0-18.0 [facility] Comment on above: Performed By: #### C MP #### [facility] [address] [place] [address] Dr. Dwight Waters IG # 0.01 10e3/ul Normal 0.00-0.03 [facility] Comment on above: Performed By: #### C MP #### [facility] [address] [place] [address] Dr. Dwight Waters IG % 0.2 % Normal 0.0-0.5 [facility] Comment on above: Performed By: #### C MP #### [facility] [address] [place] [address] Dr. Dwight Waters LYMPH # 1.8 103/ul Normal 1.2-3.8 [facility] Comment on above: Performed By: #### C MP #### [facility] [address] [place] [address] Dr. Dwight Waters Lymphocytes/100 WBC (Bld) 27.9 % Normal 20.5-60.0 [facility] Comment on above: Performed By: #### C MP #### [facility] [address] [place] [address] Dr. Dwight Waters MANUAL DIFF REQ NO Normal [facility] Comment on above: Performed By: #### C MP #### [facility] [address] [place] [address] Dr. Dwight Waters MCH (RBC) [Entitic mass] 28.5 pg Normal 25.9-34.0 [facility] Comment on above: Performed By: #### C MP #### [facility] [address] [place] [address] Dr. Dwight Waters MCHC (RBC) [Mass/Vol] 34.3 g/dL Normal 29.9-35.2 [facility] Comment on above: Performed By: #### C MP #### [facility] [address] [place] [address] Dr. Dwight Waters MCV (RBC) [Entitic vol] 83.2 fL Normal 80.0-94.0 [facility] Comment on above: Performed By: #### C MP #### [facility] [address] [address] [address] Dwight Waters MONO # 0.5 103/ul Normal 0.3-0.8 [facility] Comment on above: Performed By: #### C MP #### [facility] [address] [address] [address] Dwight Waters Monocytes/100 WBC (Bld) 8.1 % Normal 1.7-12.0 [facility] Comment on above: Performed By: #### C MP #### [facility] [address] [place] [address] Dr. Dwight Waters NEUT # 3.8 103/ul Normal 1.4-6.5 [facility] Comment on above: Performed By: #### C MP #### [facility] [address] [place] [address] Dr. Dwight Waters Neutrophils/100 WBC (Bld) 60.0 % Normal 43.0-75.0 [facility] Comment on above: Performed By: #### C MP #### [facility] [address] [place] [address] Dr. Dwight Waters Platelet mean volume (Bld) [Entitic vol] 9.2 fL Critically low 9.5-13.5 [facility] Comment on above: Performed By: #### C MP #### [facility] [address] [place] [address] Dr. Dwight Waters PLT 225 103/ul Normal 150-450 [facility] Comment on above: Performed By: #### C MP #### [facility] [address] [place] [address] Dr. Dwight Waters RBC 5.64 106/ul Normal 4.70-6.10 [facility] Comment on above: Performed By: #### C MP #### [facility] [address] [place] [address] Dr. Dwight Waters WBC 6.3 103/ul Normal 4.0-11.0 [facility] Comment on above: Performed By: #### C MP #### [facility] [address] [address] [address] Dwight Waters GGTon 12-29-2022 Gamma glutamyl transferase [Catalytic activity/Vol] 24 U/L Normal 15-85 [facility] Comment on above: Performed By: #### C MP #### [facility] [address] [place] [address] Dr. Dwight Waters LIPID PROFILEon 12-29-2022 CHOL-HDL RATIO NORM SEE BELOW Normal [facility] Comment on above: Result Comment: 3.3 - 4.4 LOW RISK 4.4 - 7.1 AVERAGE RISK 7.1 - 11.0 MODERATE RISK >11.0 HIGH RISK Performed By: #### U RTPCR #### [facility] [address] [place] [address] Dr. Dwight Waters Cholesterol [Mass/Vol] 87 mg/dL Normal <=200 [facility] Comment on above: Performed By: #### U RTPCR #### [facility] [address] [place] [address] Dr. Dwight Waters Cholesterol in HDL [Mass/Vol] 44 mg/dL Normal 40-60 [facility] Comment on above: Performed By: #### U RTPCR #### [facility] [address] [place] [address] Dr. Dwight Waters Cholesterol in LDL [Mass/Vol] 33.0 mg/dL Normal [facility] Comment on above: Performed By: #### U RTPCR #### [facility] [address] [place] [address] Dr. Dwight Waters Cholesterol.total/Ch olesterol in HDL [Mass ratio] 2.0 {ratio} Normal [facility] Comment on above: Performed By: #### U RTPCR #### [facility] [address] [place] [address] Dr. Dwight Waters HDL NORMAL > or = 60 mg/dl - LO W CARDIOVASCULAR RISK <40 mg/dl - HIGH CARDIOVASCULAR RISK Normal [facility] Comment on above: Performed By: #### U RTPCR #### [facility] [address] [place] [address] Dr. Dwight Waters LDL CALC NORMAL SEE BELOW Normal [facility] Comment on above: Result Comment: <100 mg/dl OPTIMAL 100 - 129 mg/dl NEAR OR ABOVE OPTIMAL 130 - 159 mg/dl BORDERLINE HIGH 160 - 189 mg/dl HIGH >190 mg/dl VERY HIGH Performed By: #### U RTPCR #### [facility] [address] [address] [address] Dwight Waters Triglyceride [Mass/Vol] 50 mg/dL Normal <=150 [facility] Comment on above: Performed By: #### U RTPCR #### [facility] [address] [address] [address] Dwight Waters VLDL CALC 10.0 mg/dL Normal [facility] Comment on above: Performed By: #### U RTPCR #### [facility] [address] [place] [address] Dr. Dwight Waters MAGNESIUMon 12-29-2022 Magnesium [Mass/Vol] 1.6 mg/dL Critically low 1.8-2.4 [facility] Comment on above: Performed By: #### C BC #### [facility] [address] [address] [address] Dwight Waters RENAL FUNCTION PANELon 12-29 Albumin [Mass/Vol] 3.9 g/dL Normal 3.4-5.0 [facility] Comment on above: Performed By: #### C BC #### [facility] [address] [place] [address] Dr. Dwight Waters Calcium [Mass/Vol] 9.2 mg/dL Normal 8.5-10.1 [facility] Comment on above: Performed By: #### C BC #### [facility] [address] [address] [address] Dwight Waters Chloride [Moles/Vol] 109 mmol/L Critically high 98-107 [facility] Comment on above: Performed By: #### C BC #### [facility] [address] [address] [address] Dwight Waters CO2 [Moles/Vol] 27.0 mmol/L Normal 21.0-32.0 [facility] Comment on above: Performed By: #### C BC #### [facility] [address] [address] [address] Dwight Waters Creatinine [Mass/Vol] 1.02 mg/dL Normal 0.70-1.30 [facility] Comment on above: Performed By: #### C BC #### [facility] [address] [address] [address] Dwight Waters EGFR-AF GRENADIAN >60 Normal >=60 [facility] Comment on above: Performed By: #### C BC #### [facility] [address] [address] [address] Dwight Waters EGFR-NON AF GRENADIAN >60 Normal >=60 [facility] Comment on above: Performed By: #### C BC #### [facility] [address] [place] [address] Dr. Dwight Waters Glucose [Mass/Vol] 117 mg/dL Critically high 74-106 T [facility] Comment on above: Performed By: #### C BC #### [facility] [address] [place] [address] Dr. Dwight Waters Phosphate [Mass/Vol] 3.2 mg/dL Normal 2.6-4.7 [facility] Comment on above: Performed By: #### C BC #### [facility] [address] [place] [address] Dr. Dwight Waters Potassium [Moles/Vol] 4.1 mmol/L Normal 3.5-5.1 [facility] Comment on above: Performed By: #### C BC #### [facility] [address] [place] [address] Dr. Dwight Waters Sodium [Moles/Vol] 144 mmol/L Normal 136-145 [facility] Comment on above: Performed By: #### C BC #### [facility] [address] [place] [address] Dr. Dwight Waters Urea nitrogen [Mass/Vol] 13.0 mg/dL Normal 7.0-18.0 [facility] Comment on above: Performed By: #### C BC #### [facility] [address] [place] [address] Dr. Dwight Waters SGOTon 12-29-2022 AST [Catalytic activity/Vol] 21 U/L Normal 15-37 [facility] Comment on above: Performed By: #### C BC #### [facility] [address] [place] [address] Dr. Dwight Waters SGPTon 12-29-2022 ALT [Catalytic activity/Vol] 32 U/L Normal 16-63 [facility] Comment on above: Performed By: #### C BC #### [facility] [address] [place] [address] Dr. Dwight Waters URINE T PROTEIN CREAT RATIOo n 12-29-2022 Protein (U) [Mass/Vol] 14.3 mg/dL Critically high <=12.0 [facility] Comment on above: Performed By: #### U RTPCR #### [facility] [address] [place] [address] Dr. Dwight Waters UR PROT CREAT RAT 0.17 Normal [facility] Comment on above: Performed By: #### U RTPCR #### [facility] [address] [place] [address] Dr. Dwight Waters URINE CREAT 86.58 mg/dL Normal 20.00-300.00 [facility] Comment on above: Performed By: #### U RTPCR #### [facility] [address] [place] [address] Dr. Dwight Waters FK506 (TACROLIMUS) WHOLE BLO ODon 11-06-2022 Tacrolimus (FK506), Blood 4.9 ng/mL Normal 2.0-20.0 [facility] Comment on above: Result Comment: Trou gh (immediately following transplant) 15.0 . Trough (steady state, 2 weeks or more after transplant): 3.0 - 8.0 . Performed by LC-MS/MS technology. Performed By: #### U RTPCR #### [facility] [address] [place] [address] Dr. Dwight Waters ALKALINE PHOSPHAon ALP [Catalytic activity/Vol] 86 U/L Normal 46-116 [facility] Comment on above: Performed By: #### U RTPCR #### [facility] [address] [place] [address] Dr. Dwight Waters BILIRUBIN CONJUGATED (DIRECT )on 11-04-2022 BILI, CONJUGATED 0.2 mg/dL Normal 0.0-0.2 [facility] Comment on above: Performed By: #### U RTPCR #### [facility] [address] [place] [address] Dr. Dwight Waters BILIRUBIN TOTALon 11-04-2022 Bilirubin [Mass/Vol] 0.8 mg/dL Normal 0.2-1.0 [facility] Comment on above: Performed By: #### U RTPCR #### [facility] [address] [place] [address] Dr. Dwight Waters CBC AUTO DIFFon 11-04-2022 BASO # 0.1 103/ul Normal 0.0-0.1 [facility] Comment on above: Performed By: #### U RTPCR #### [facility] [address] [place] [address] Dr. Dwight Waters Basophils/100 WBC (Bld) 0.9 % Normal 0.2-2.0 [facility] Comment on above: Performed By: #### U RTPCR #### [facility] [address] [place] [address] Dr. Dwight Waters EO # 0.2 103/ul Normal 0.0-0.7 [facility] Comment on above: Performed By: #### U RTPCR #### [facility] [address] [place] [address] Dr. Dwight Waters Eosinophils/100 WBC (Bld) 3.7 % Normal 0.9-7.0 [facility] Comment on above: Performed By: #### U RTPCR #### [facility] [address] [place] [address] Dr. Dwight Waters Erythrocyte distribution width (RBC) [Ratio] 12.9 % Normal 11.0-15.0 [facility] Comment on above: Performed By: #### U RTPCR #### [facility] [address] [place] [address] Dr. Dwight Waters Hematocrit (Bld) [Volume fraction] 48.3 % Normal 42.0-54.0 [facility] Comment on above: Performed By: #### U RTPCR #### [facility] [address] [place] [address] Dr. Dwight Waters Hemoglobin (Bld) [Mass/Vol] 15.6 g/dL Normal 14.0-18.0 [facility] Comment on above: Performed By: #### U RTPCR #### [facility] [address] [place] [address] Dr. Dwight Waters IG # 0.01 10e3/ul Normal 0.00-0.03 [facility] Comment on above: Performed By: #### U RTPCR #### [facility] [address] [place] [address] Dr. Dwight Waters IG % 0.2 % Normal 0.0-0.5 [facility] Comment on above: Performed By: #### U RTPCR #### [facility] [address] [place] [address] Dr. Dwight Waters LYMPH # 1.9 103/ul Normal 1.2-3.8 [facility] Comment on above: Performed By: #### U RTPCR #### [facility] [address] [place] [address] Dr. Dwight Waters Lymphocytes/100 WBC (Bld) 33.0 % Normal 20.5-60.0 [facility] Comment on above: Performed By: #### U RTPCR #### [facility] [address] [place] [address] Dr. Dwight Waters MANUAL DIFF REQ NO Normal [facility] Comment on above: Performed By: #### U RTPCR #### [facility] [address] [place] [address] Dr. Dwight Waters MCH (RBC) [Entitic mass] 27.6 pg Normal 25.9-34.0 [facility] Comment on above: Performed By: #### U RTPCR #### [facility] [address] [place] [address] Dr. Dwight Waters MCHC (RBC) [Mass/Vol] 32.3 g/dL Normal 29.9-35.2 [facility] Comment on above: Performed By: #### U RTPCR #### [facility] [address] [place] [address] Dr. Dwight Waters MCV (RBC) [Entitic vol] 85.5 fL Normal 80.0-94.0 [facility] Comment on above: Performed By: #### U RTPCR #### [facility] [address] [place] [address] Dr. Dwight Waters MONO # 0.5 103/ul Normal 0.3-0.8 [facility] Comment on above: Performed By: #### U RTPCR #### [facility] [address] [place] [address] Dr. Dwight Waters Monocytes/100 WBC (Bld) 8.8 % Normal 1.7-12.0 [facility] Comment on above: Performed By: #### U RTPCR #### [facility] [address] [place] [address] Dr. Dwight Waters NEUT # 3.1 103/ul Normal 1.4-6.5 [facility] Comment on above: Performed By: #### U RTPCR #### [facility] [address] [place] [address] Dr. Dwight Waters Neutrophils/100 WBC (Bld) 53.4 % Normal 43.0-75.0 [facility] Comment on above: Performed By: #### U RTPCR #### [facility] [address] [place] [address] Dr. Dwight Waters Platelet mean volume (Bld) [Entitic vol] 9.2 fL Critically low 9.5-13.5 [facility] Comment on above: Performed By: #### U RTPCR #### [facility] [address] [place] [address] Dr. Dwight Waters PLT 255 103/ul Normal 150-450 [facility] Comment on above: Performed By: #### U RTPCR #### [facility] [address] [place] [address] Dr. Dwight Waters RBC 5.65 106/ul Normal 4.70-6.10 [facility] Comment on above: Performed By: #### U RTPCR #### [facility] [address] [place] [address] Dr. Dwight Waters WBC 5.7 103/ul Normal 4.0-11.0 [facility] Comment on above: Performed By: #### U RTPCR #### [facility] [address] [place] [address] Dr. Dwight Waters GGTon 11-04-2022 Gamma glutamyl transferase [Catalytic activity/Vol] 22 U/L Normal 15-85 [facility] Comment on above: Performed By: #### U RTPCR #### [facility] [address] [place] [address] Dr. Dwight Waters MAGNESIUMon 11-04-2022 Magnesium [Mass/Vol] 1.8 mg/dL Normal 1.8-2.4 [facility] Comment on above: Performed By: #### U RTPCR #### [facility] [address] [place] [address] Dr. Dwight Waters RENAL FUNCTION PANELon 11-04 Albumin [Mass/Vol] 3.8 g/dL Normal 3.4-5.0 [facility] Comment on above: Performed By: #### U RTPCR #### [facility] [address] [place] [address] Dr. Dwight Waters Calcium [Mass/Vol] 9.3 mg/dL Normal 8.5-10.1 [facility] Comment on above: Performed By: #### U RTPCR #### [facility] [address] [place] [address] Dr. Dwight Waters Chloride [Moles/Vol] 107 mmol/L Normal 98-107 [facility] Comment on above: Performed By: #### U RTPCR #### [facility] [address] [place] [address] Dr. Dwight Waters CO2 [Moles/Vol] 29.2 mmol/L Normal 21.0-32.0 [facility] Comment on above: Performed By: #### U RTPCR #### [facility] [address] [address] [address] Dwight Waters Creatinine [Mass/Vol] 1.07 mg/dL Normal 0.70-1.30 [facility] Comment on above: Performed By: #### U RTPCR #### [facility] [address] [place] [address] Dr. Dwight Waters EGFR-AF GRENADIAN >60 Normal >=60 [facility] Comment on above: Performed By: #### U RTPCR #### [facility] [address] [place] [address] Dr. Dwight Waters EGFR-NON AF GRENADIAN >60 Normal >=60 [facility] Comment on above: Performed By: #### U RTPCR #### [facility] [address] [place] [address] Dr. Dwight Waters Glucose [Mass/Vol] 106 mg/dL Normal 74-106 [facility] Comment on above: Performed By: #### U RTPCR #### [facility] [address] [place] [address] Dr. Dwight Waters Phosphate [Mass/Vol] 2.8 mg/dL Normal 2.6-4.7 [facility] Comment on above: Performed By: #### U RTPCR #### [facility] [address] [place] [address] Dr. Dwight Waters Potassium [Moles/Vol] 4.1 mmol/L Normal 3.5-5.1 [facility] Comment on above: Performed By: #### U RTPCR #### [facility] [address] [place] [address] Dr. Dwight Waters Sodium [Moles/Vol] 143 mmol/L Normal 136-145 [facility] Comment on above: Performed By: #### U RTPCR #### [facility] [address] [place] [address] Dr. Dwight Waters Urea nitrogen [Mass/Vol] 12.0 mg/dL Normal 7.0-18.0 [facility] Comment on above: Performed By: #### U RTPCR #### [facility] [address] [place] [address] Dr. Dwight OLEVRASpartanburgn 11-04-2022 AST [Catalytic activity/Vol] 19 U/L Normal 15-37 [facility] Comment on above: Performed By: #### U RTPCR #### [facility] [address] [place] [address] Dr. Dwight Waters SGPTon 11-04-2022 ALT [Catalytic activity/Vol] 28 U/L Normal 16-63 [facility] Comment on above: Performed By: #### U RTPCR #### [facility] [address] [place] [address] Dr. Dwight Watesr URINE T PROTEIN CREAT RATIOo n 11-04-2022 Protein (U) [Mass/Vol] 10.7 mg/dL Normal <=12.0 [facility] Comment on above: Performed By: #### U RTPCR #### [facility] [address] [place] [address] Dr. Dwight Waters UR PROT CREAT RAT 0.13 Normal [facility] Comment on above: Performed By: #### U RTPCR #### [facility] [address] [place] [address] Dr. Dwight Waters URINE CREAT 84.50 mg/dL Normal 20.00-300.00 [facility] Comment on above: Performed By: #### U RTPCR #### [facility] [address] [place] [address] Dr. Dwight Waters FK506 (TACROLIMUS) WHOLE BLO ODon 09-18-2022 Tacrolimus (FK506), Blood 4.6 ng/mL Normal 2.0-20.0 [facility] Comment on above: Result Comment: Trou gh (immediately following transplant) 15.0 . Trough (steady state, 2 weeks or more after transplant): 3.0 - 8.0 . Performed by LC-MS/MS technology. Performed By: #### U RTPCR #### [facility] [address] [place] [address] Dr. Dwight Waters BK VIRUS PCR QUANTon 022 BKV DNA QUANT PCR PLASMA Negative Normal Negative [facility] Comment on above: Result Comment: No B K DNA detected. . The linear range of the assay is 22 - 100,000,000 IU/mL. Performed By: #### U RTPCR #### [facility] [address] [place] [address] Dr. Dwight Waters Log10 BKV DNA Plasma Normal [facility] Comment on above: Performed By: #### U RTPCR #### [facility] [address] [place] [address] Dr. Dwight Waters ALKALINE PHOSPHAon ALP [Catalytic activity/Vol] 92 U/L Normal 46-116 [facility] Comment on above: Performed By: #### U RTPCR #### [facility] [address] [place] [address] Dr. Dwight Waters BILIRUBIN CONJUGATED (DIRECT )on 09-15-2022 BILI, CONJUGATED 0.3 mg/dL Critically high 0.0-0.2 [facility] Comment on above: Performed By: #### U RTPCR #### [facility] [address] [place] [address] Dr. Dwight Waters BILIRUBIN TOTALon 09-15-2022 Bilirubin [Mass/Vol] 1.1 mg/dL Critically high 0.2-1.0 [facility] Comment on above: Performed By: #### U RTPCR #### [facility] [address] [place] [address] Dr. Dwight Waters CBC AUTO DIFFon 09-15-2022 BASO # 0.1 103/ul Normal 0.0-0.1 [facility] Comment on above: Performed By: #### C BC #### [facility] [address] [place] [address] Dr. Dwight Waters Basophils/100 WBC (Bld) 0.8 % Normal 0.2-2.0 [facility] Comment on above: Performed By: #### C BC #### [facility] [address] [place] [address] Dr. Dwight Waters EO # 0.2 103/ul Normal 0.0-0.7 [facility] Comment on above: Performed By: #### C BC #### [facility] [address] [place] [address] Dr. Dwight Waters Eosinophils/100 WBC (Bld) 3.5 % Normal 0.9-7.0 [facility] Comment on above: Performed By: #### C BC #### [facility] [address] [place] [address] Dr. Dwight Waters Erythrocyte distribution width (RBC) [Ratio] 13.0 % Normal 11.0-15.0 [facility] Comment on above: Performed By: #### C BC #### [facility] [address] [place] [address] Dr. Dwight Waters Hematocrit (Bld) [Volume fraction] 50.0 % Normal 42.0-54.0 [facility] Comment on above: Performed By: #### C BC #### [facility] [address] [place] [address] Dr. Dwight Waters Hemoglobin (Bld) [Mass/Vol] 16.0 g/dL Normal 14.0-18.0 [facility] Comment on above: Performed By: #### C BC #### [facility] [address] [place] [address] Dr. Dwight Waters IG # 0.02 10e3/ul Normal 0.00-0.03 [facility] Comment on above: Performed By: #### C BC #### [facility] [address] [place] [address] Dr. Dwight Waters IG % 0.3 % Normal 0.0-0.5 [facility] Comment on above: Performed By: #### C BC #### [facility] [address] [place] [address] Dr. Dwight Waters LYMPH # 1.8 103/ul Normal 1.2-3.8 [facility] Comment on above: Performed By: #### C BC #### [facility] [address] [place] [address] Dr. Dwight Waters Lymphocytes/100 WBC (Bld) 26.5 % Normal 20.5-60.0 [facility] Comment on above: Performed By: #### C BC #### [facility] [address] [place] [address] Dr. Dwight Waters MANUAL DIFF REQ NO Normal [facility] Comment on above: Performed By: #### C BC #### [facility] [address] [place] [address] Dr. Dwight Waters MCH (RBC) [Entitic mass] 28.1 pg Normal 25.9-34.0 [facility] Comment on above: Performed By: #### C BC #### [facility] [address] [place] [address] Dr. Dwight Waters MCHC (RBC) [Mass/Vol] 32.0 g/dL Normal 29.9-35.2 [facility] Comment on above: Performed By: #### C BC #### [facility] [address] [place] [address] Dr. Dwight Waters MCV (RBC) [Entitic vol] 87.9 fL Normal 80.0-94.0 [facility] Comment on above: Performed By: #### C BC #### [facility] [address] [place] [address] Dr. Dwight Waters MONO # 0.5 103/ul Normal 0.3-0.8 [facility] Comment on above: Performed By: #### C BC #### [facility] [address] [place] [address] Dr. Dwight Waters Monocytes/100 WBC (Bld) 8.1 % Normal 1.7-12.0 [facility] Comment on above: Performed By: #### C BC #### [facility] [address] [place] [address] Dr. Dwight Waters NEUT # 4.0 103/ul Normal 1.4-6.5 [facility] Comment on above: Performed By: #### C BC #### [facility] [address] [place] [address] Dr. Dwight Waters Neutrophils/100 WBC (Bld) 60.8 % Normal 43.0-75.0 [facility] Comment on above: Performed By: #### C BC #### [facility] [address] [place] [address] Dr. Dwight Waters Platelet mean volume (Bld) [Entitic vol] 9.4 fL Critically low 9.5-13.5 [facility] Comment on above: Performed By: #### C BC #### [facility] [address] [place] [address] Dr. Dwight Waters PLT 265 103/ul Normal 150-450 [facility] Comment on above: Performed By: #### C BC #### [facility] [address] [place] [address] Dr. Dwight Waters RBC 5.69 106/ul Normal 4.70-6.10 [facility] Comment on above: Performed By: #### C BC #### [facility] [address] [place] [address] Dr. Dwight Waters WBC 6.6 103/ul Normal 4.0-11.0 [facility] Comment on above: Performed By: #### C BC #### [facility] [address] [place] [address] Dr. Dwight Waters GGTon 09-15-2022 Gamma glutamyl transferase [Catalytic activity/Vol] 23 U/L Normal 15-85 [facility] Comment on above: Performed By: #### U RTPCR #### [facility] [address] [place] [address] Dr. Dwight Waters MAGNESIUMon 09-15-2022 Magnesium [Mass/Vol] 1.8 mg/dL Normal 1.8-2.4 [facility] Comment on above: Performed By: #### U RTPCR #### [facility] [address] [place] [address] Dr. Dwight Waters RENAL FUNCTION PANELon 09-15 Albumin [Mass/Vol] 4.1 g/dL Normal 3.4-5.0 [facility] Comment on above: Performed By: #### C BC #### [facility] [address] [place] [address] Dr. Dwight Waters Calcium [Mass/Vol] 9.3 mg/dL Normal 8.5-10.1 [facility] Comment on above: Performed By: #### C BC #### [facility] [address] [place] [address] Dr. Dwight Waters Chloride [Moles/Vol] 107 mmol/L Normal 98-107 [facility] Comment on above: Performed By: #### C BC #### [facility] [address] [place] [address] Dr. Dwight Waters CO2 [Moles/Vol] 25.6 mmol/L Normal 21.0-32.0 [facility] Comment on above: Performed By: #### C BC #### [facility] [address] [address] [address] Dwight Waters Creatinine [Mass/Vol] 1.01 mg/dL Normal 0.70-1.30 [facility] Comment on above: Performed By: #### C BC #### [facility] [address] [place] [address] Dr. Dwight Waters EGFR-AF GRENADIAN >60 Normal >=60 [facility] Comment on above: Performed By: #### C BC #### [facility] [address] [place] [address] Dr. Dwight Waters EGFR-NON AF GRENADIAN >60 Normal >=60 [facility] Comment on above: Performed By: #### C BC #### [facility] [address] [place] [address] Dr. Dwight Waters Glucose [Mass/Vol] 119 mg/dL Critically high 74-106 [facility] Comment on above: Performed By: #### C BC #### [facility] [address] [place] [address] Dr. Dwight Waters Phosphate [Mass/Vol] 2.8 mg/dL Normal 2.6-4.7 [facility] Comment on above: Performed By: #### C BC #### [facility] [address] [place] [address] Dr. Dwight Waters Potassium [Moles/Vol] 4.0 mmol/L Normal 3.5-5.1 [facility] Comment on above: Performed By: #### C BC #### [facility] [address] [place] [address] Dr. Dwight Waters Sodium [Moles/Vol] 141 mmol/L Normal 136-145 [facility] Comment on above: Performed By: #### C BC #### [facility] [address] [place] [address] Dr. Dwight Waters Urea nitrogen [Mass/Vol] 15.0 mg/dL Normal 7.0-18.0 [facility] Comment on above: Performed By: #### C BC #### [facility] [address] [place] [address] Dr. Dwight OLVERAOTon 09-15-2022 AST [Catalytic activity/Vol] 18 U/L Normal 15-37 [facility] Comment on above: Performed By: #### U RTPCR #### [facility] [address] [place] [address] Dr. Dwight OLVERAPTon 09-15-2022 ALT [Catalytic activity/Vol] 32 U/L Normal 16-63 [facility] Comment on above: Performed By: #### C BC #### [facility] [address] [place] [address] Dr. Dwight Waters URINE T PROTEIN CREAT RATIOo n 09-15-2022 Protein (U) [Mass/Vol] 14.1 mg/dL Critically high <=12.0 [facility] Comment on above: Performed By: #### U RTPCR #### [facility] [address] [place] [address] Dr. Dwight Waters UR PROT CREAT RAT 0.14 Normal [facility] Comment on above: Performed By: #### U RTPCR #### [facility] [address] [place] [address] Dr. Dwight Waters URINE CREAT 98.89 mg/dL Normal 20.00-300.00 [facility] Comment on above: Performed By: #### U RTPCR #### [facility] [address] [place] [address] Dr. Dwight Waters US CAROTID ART BILon [...] MÓNICA JIMENEZ Date: 2022-08-28 13:20 Normal [facility] FK506 (TACROLIMUS) WHOLE BLO ODon 08-17-2022 Tacrolimus (FK506), Blood 9.9 ng/mL Normal 2.0-20.0 [facility] Comment on above: Result Comment: Trou gh (immediately following transplant) 15.0 . Trough (steady state, 2 weeks or more after transplant): 3.0 - 8.0 . Performed by LC-MS/MS technology. Performed By: #### F [id number] #### [facility] [address] [place] [address] Dr. Dwight Waters BK VIRUS PCR QUANTon 022 BKV DNA QUANT PCR PLASMA Negative Normal Negative [facility] Comment on above: Result Comment: No B K DNA detected. . The linear range of the assay is 22 - 100,000,000 IU/mL. Performed By: #### U RTPCR #### [facility] [address] [place] [address] Dr. Dwight Waters Log10 BKV DNA Plasma Normal [facility] Comment on above: Performed By: #### U RTPCR #### [facility] [address] [place] [address] Dr. Dwight Waters ALBUMINon 08-14-2022 Albumin [Mass/Vol] 4.2 g/dL Normal 3.4-5.0 [facility] Comment on above: Performed By: #### F [id number] #### [facility] [address] [place] [address] Dr. Dwight Waters ALKALINE PHOSPHAon ALP [Catalytic activity/Vol] 92 U/L Normal 46-116 [facility] Comment on above: Performed By: #### C BC #### [facility] [address] [place] [address] Dr. Dwight Waters BILIRUBIN CONJUGATED (DIRECT )on 08-14-2022 BILI, CONJUGATED 0.3 mg/dL Critically high 0.0-0.2 [facility] Comment on above: Performed By: #### F [id number] #### [facility] [address] [place] [address] Dr. Dwight Waters BILIRUBIN TOTALon 08-14-2022 Bilirubin [Mass/Vol] 1.5 mg/dL Critically high 0.2-1.0 [facility] Comment on above: Performed By: #### F [id number] #### [facility] [address] [place] [address] Dr. Dwight Waters BUNon 08-14-2022 Urea nitrogen [Mass/Vol] 11.0 mg/dL Normal 7.0-18.0 [facility] Comment on above: Performed By: #### C BC #### [facility] [address] [place] [address] Dr. Dwight Waters CALCIUMon 08-14-2022 Calcium [Mass/Vol] 9.4 mg/dL Normal 8.5-10.1 [facility] Comment on above: Performed By: #### F [id number] #### [facility] [address] [place] [address] Dr. Dwight Waters CBC AUTO DIFFon 08-14-2022 BASO # 0.0 103/ul Normal 0.0-0.1 [facility] Comment on above: Performed By: #### C MP #### [facility] [address] [place] [address] Dr. Dwight Waters Basophils/100 WBC (Bld) 0.5 % Normal 0.2-2.0 [facility] Comment on above: Performed By: #### C MP #### [facility] [address] [place] [address] Dr. Dwight Waters EO # 0.2 103/ul Normal 0.0-0.7 [facility] [facility] Comment on above: Performed By: #### C MP #### [facility] [address] [place] [address] Dr. Dwight Waters Eosinophils/100 WBC (Bld) 2.6 % Normal 0.9-7.0 [facility] Comment on above: Performed By: #### C MP #### [facility] [address] [place] [address] Dr. Dwight Waters Erythrocyte distribution width (RBC) [Ratio] 13.1 % Normal 11.0-15.0 [facility] Comment on above: Performed By: #### C MP #### [facility] [address] [place] [address] Dr. Dwight Waters Hematocrit (Bld) [Volume fraction] 47.0 % Normal 42.0-54.0 [facility] Comment on above: Performed By: #### C MP #### [facility] [address] [place] [address] Dr. Dwight Waters Hemoglobin (Bld) [Mass/Vol] 15.3 g/dL Normal 14.0-18.0 [facility] Comment on above: Performed By: #### C MP #### [facility] [address] [place] [address] Dr. Dwight Waters IG # 0.01 10e3/ul Normal 0.00-0.03 [facility] Comment on above: Performed By: #### C MP #### [facility] [address] [place] [address] Dr. Dwight Waters IG % 0.1 % Normal 0.0-0.5 [facility] Comment on above: Performed By: #### C MP #### [facility] [address] [place] [address] Dr. Dwight Waters LYMPH # 2.3 103/ul Normal 1.2-3.8 [facility] Comment on above: Performed By: #### C MP #### [facility] [address] [place] [address] Dr. Dwight Waters Lymphocytes/100 WBC (Bld) 29.8 % Normal 20.5-60.0 [facility] Comment on above: Performed By: #### C MP #### [facility] [address] [place] [address] Dr. Dwight Waters MANUAL DIFF REQ NO Normal [facility] Comment on above: Performed By: #### C MP #### [facility] [address] [place] [address] Dr. Dwight Waters MCH (RBC) [Entitic mass] 28.2 pg Normal 25.9-34.0 [facility] Comment on above: Performed By: #### C MP #### [facility] [address] [place] [address] Dr. Dwight Waters MCHC (RBC) [Mass/Vol] 32.6 g/dL Normal 29.9-35.2 [facility] Comment on above: Performed By: #### C MP #### [facility] [address] [place] [address] Dr. Dwight Waters MCV (RBC) [Entitic vol] 86.7 fL Normal 80.0-94.0 [facility] Comment on above: Performed By: #### C MP #### [facility] [address] [place] [address] Dr. Dwight Waters MONO # 0.7 103/ul Normal 0.3-0.8 [facility] Comment on above: Performed By: #### C MP #### [facility] [address] [place] [address] Dr. Dwight Waters Monocytes/100 WBC (Bld) 8.5 % Normal 1.7-12.0 [facility] Comment on above: Performed By: #### C MP #### [facility] [address] [place] [address] Dr. Dwight Waters NEUT # 4.5 103/ul Normal 1.4-6.5 [facility] Comment on above: Performed By: #### C MP #### [facility] [address] [place] [address] Dr. Dwight Waters Neutrophils/100 WBC (Bld) 58.5 % Normal 43.0-75.0 [facility] Comment on above: Performed By: #### C MP #### [facility] [address] [place] [address] Dr. Dwight Waters Platelet mean volume (Bld) [Entitic vol] 9.7 fL Normal 9.5-13.5 [facility] Comment on above: Performed By: #### C MP #### [facility] [address] [place] [address] Dr. Dwight Waters PLT 266 103/ul Normal 150-450 [facility] Comment on above: Performed By: #### C MP #### [facility] [address] [place] [address] Dr. Dwight Waters RBC 5.42 106/ul Normal 4.70-6.10 [facility] Comment on above: Performed By: #### C MP #### [facility] [address] [place] [address] Dr. Dwight Waters WBC 7.6 103/ul Normal 4.0-11.0 [facility] Comment on above: Performed By: #### C MP #### [facility] [address] [place] [address] Dr. Dwight Waters CHLORIDEon 08-14-2022 Chloride [Moles/Vol] 104 mmol/L Normal 98-107 [facility] Comment on above: Performed By: #### C BC #### [facility] [address] [place] [address] Dr. Dwight Waters CO2on 08-14-2022 CO2 [Moles/Vol] 27.9 mmol/L Normal 21.0-32.0 [facility] Comment on above: Performed By: #### C BC #### [facility] [address] [place] [address] Dr. Dwight Waters CREATININEon 08-14-2022 Creatinine [Mass/Vol] 1.08 mg/dL Normal 0.70-1.30 [facility] Comment on above: Performed By: #### C BC #### [facility] [address] [place] [address] Dr. Dwight Waters EGFR-AF GRENADIAN >60 Normal >=60 [facility] Comment on above: Performed By: #### C BC #### [facility] [address] [place] [address] Dr. Dwight Waters EGFR-NON AF GRENADIAN >60 Normal >=60 [facility] Comment on above: Performed By: #### C BC #### [facility] [address] [place] [address] Dr. Dwight Waters GGTon 08-14-2022 Gamma glutamyl transferase [Catalytic activity/Vol] 24 U/L Normal 15-85 [facility] Comment on above: Performed By: #### F [id number] #### [facility] [address] [place] [address] Dr. Dwight Waters GLUCOSE BLOODon 08-14-2022 Glucose [Mass/Vol] 111 mg/dL Critically high 74-106 T [facility] Comment on above: Performed By: #### C BC #### [facility] [address] [place] [address] Dr. Dwight Waters MAGNESIUMon 08-14-2022 Magnesium [Mass/Vol] 1.4 mg/dL Critically low 1.8-2.4 [facility] Comment on above: Performed By: #### C BC #### [facility] [address] [place] [address] Dr. Dwight Waters NAon 08-14-2022 Sodium [Moles/Vol] 140 mmol/L Normal 136-145 [facility] Comment on above: Performed By: #### F [id number] #### [facility] [address] [place] [address] Dr. Dwight Waters PHOSPHORUSon 08-14-2022 Phosphate [Mass/Vol] 3.1 mg/dL Normal 2.6-4.7 [facility] Comment on above: Performed By: #### C BC #### [facility] [address] [place] [address] Dr. Dwight Waters POTASSIUMon 08-14-2022 Potassium [Moles/Vol] 3.5 mmol/L Normal 3.5-5.1 [facility] Comment on above: Performed By: #### C BC #### [facility] [address] [place] [address] Dr. Dwight Waters SGOTon 08-14-2022 AST [Catalytic activity/Vol] 17 U/L Normal 15-37 [facility] Comment on above: Performed By: #### F [id number] #### [facility] [address] [place] [address] Dr. Dwight Waters SGPTon 08-14-2022 ALT [Catalytic activity/Vol] 22 U/L Normal 16-63 [facility] Comment on above: Performed By: #### F [id number] #### [facility] [address] [place] [address] Dr. Dwight Waters URINE T PROTEIN CREAT RATIOo n 08-14-2022 Protein (U) [Mass/Vol] 10.7 mg/dL Normal <=12.0 [facility] Comment on above: Performed By: #### F [id number] #### [facility] [address] [place] [address] Dr. Dwight Waters UR PROT CREAT RAT 0.10 Normal [facility] Comment on above: Performed By: #### F [id number] #### [facility] [address] [place] [address] Dr. Dwight Waters URINE CREAT 104.28 mg/dL Normal 20.00-300.00 [facility] Comment on above: Performed By: #### F [id number] #### [facility] [address] [place] [address] Dr. Dwight Waters NEPHROSTOMY TUBE REMOVALon 0 [...] Assisting physician present for entire procedure: yes [facility] Radiology Study observation (narrative) [facility] FK506 (TACROLIMUS) WHOLE BLO ODon 07-06-2022 Tacrolimus (FK506), Blood 9.5 ng/mL Normal 2.0-20.0 [facility] Comment on above: Result Comment: Trou gh (immediately following transplant) 15.0 . Trough (steady state, 2 weeks or more after transplant): 3.0 - 8.0 . Performed by LC-MS/MS technology. Performed By: #### C MP #### [facility] [address] [place] [address] Dr. Dwight Waters ALBUMINon 07-03-2022 Albumin [Mass/Vol] 3.7 g/dL Normal 3.4-5.0 [facility] Comment on above: Performed By: #### U RTPCR #### [facility] [address] [place] [address] Dr. Dwight Waters ALKALINE PHOSPHAon ALP [Catalytic activity/Vol] 76 U/L Normal 46-116 [facility] Comment on above: Performed By: #### U RTPCR #### [facility] [address] [place] [address] Dr. Dwight Waters BILIRUBIN CONJUGATED (DIRECT )on 07-03-2022 BILI, CONJUGATED 0.3 mg/dL Critically high 0.0-0.2 [facility] Comment on above: Performed By: #### C BC #### [facility] [address] [place] [address] Dr. Dwight Waters BILIRUBIN TOTALon 07-03-2022 Bilirubin [Mass/Vol] 1.4 mg/dL Critically high 0.2-1.0 [facility] Comment on above: Performed By: #### C BC #### [facility] [address] [place] [address] Dr. Dwight Waters BUNon 07-03-2022 Urea nitrogen [Mass/Vol] 15.0 mg/dL Normal 7.0-18.0 [facility] Comment on above: Performed By: #### C BC #### [facility] [address] [place] [address] Dr. Dwight Waters CALCIUMon 07-03-2022 Calcium [Mass/Vol] 9.4 mg/dL Normal 8.5-10.1 [facility] Comment on above: Performed By: #### U RTPCR #### [facility] [address] [place] [address] Dr. Dwight Waters CBC AUTO DIFFon 07-03-2022 BASO # 0.0 103/ul Normal 0.0-0.1 [facility] Comment on above: Performed By: #### U RTPCR #### [facility] [address] [place] [address] Dr. Dwight Waters Basophils/100 WBC (Bld) 0.6 % Normal 0.2-2.0 [facility] Comment on above: Performed By: #### U RTPCR #### [facility] [address] [place] [address] Dr. Dwight Waters EO # 0.2 103/ul Normal 0.0-0.7 [facility] Comment on above: Performed By: #### U RTPCR #### [facility] [address] [place] [address] Dr. Dwight Waters Eosinophils/100 WBC (Bld) 3.5 % Normal 0.9-7.0 [facility] Comment on above: Performed By: #### U RTPCR #### [facility] [address] [place] [address] Dr. Dwight Waters Erythrocyte distribution width (RBC) [Ratio] 12.9 % Normal 11.0-15.0 [facility] Comment on above: Performed By: #### U RTPCR #### [facility] [address] [place] [address] Dr. Dwight Waters Hematocrit (Bld) [Volume fraction] 44.2 % Normal 42.0-54.0 [facility] Comment on above: Performed By: #### U RTPCR #### [facility] [address] [address] [address] Dwight Waters Hemoglobin (Bld) [Mass/Vol] 14.6 g/dL Normal 14.0-18.0 [facility] Comment on above: Performed By: #### U RTPCR #### [facility] [address] [address] [address] Dwight Waters IG # 0.02 10e3/ul Normal 0.00-0.03 [facility] Comment on above: Performed By: #### U RTPCR #### [facility] [address] [place] [address] Dr. Dwight Waters IG % 0.3 % Normal 0.0-0.5 [facility] Comment on above: Performed By: #### U RTPCR #### [facility] [address] [place] [address] Dr. Dwight Waters LYMPH # 2.0 103/ul Normal 1.2-3.8 [facility] Comment on above: Performed By: #### U RTPCR #### [facility] [address] [place] [address] Dr. Dwight Waters Lymphocytes/100 WBC (Bld) 28.4 % Normal 20.5-60.0 [facility] Comment on above: Performed By: #### U RTPCR #### [facility] [address] [place] [address] Dr. Dwight Waters MANUAL DIFF REQ NO Normal [facility] Comment on above: Performed By: #### U RTPCR #### [facility] [address] [place] [address] Dr. Dwight Waters MCH (RBC) [Entitic mass] 28.6 pg Normal 25.9-34.0 [facility] Comment on above: Performed By: #### U RTPCR #### [facility] [address] [place] [address] Dr. Dwight Waters MCHC (RBC) [Mass/Vol] 33.0 g/dL Normal 29.9-35.2 [facility] Comment on above: Performed By: #### U RTPCR #### [facility] [address] [place] [address] Dr. Dwight Waters MCV (RBC) [Entitic vol] 86.7 fL Normal 80.0-94.0 [facility] Comment on above: Performed By: #### U RTPCR #### [facility] [address] [place] [address] Dr. Dwight Waters MONO # 0.6 103/ul Normal 0.3-0.8 [facility] Comment on above: Performed By: #### U RTPCR #### [facility] [address] [place] [address] Dr. Dwight Waters Monocytes/100 WBC (Bld) 9.1 % Normal 1.7-12.0 [facility] Comment on above: Performed By: #### U RTPCR #### [facility] [address] [place] [address] Dr. Dwight Waters NEUT # 4.0 103/ul Normal 1.4-6.5 [facility] Comment on above: Performed By: #### U RTPCR #### [facility] [address] [place] [address] Dr. Dwight Waters Neutrophils/100 WBC (Bld) 58.1 % Normal 43.0-75.0 [facility] Comment on above: Performed By: #### U RTPCR #### [facility] [address] [place] [address] Dr. Dwight Waters Platelet mean volume (Bld) [Entitic vol] 9.5 fL Normal 9.5-13.5 [facility] Comment on above: Performed By: #### U RTPCR #### [facility] [address] [place] [address] Dr. Dwight Waters PLT 292 103/ul Normal 150-450 [facility] Comment on above: Performed By: #### U RTPCR #### [facility] [address] [place] [address] Dr. Dwight Waters RBC 5.10 106/ul Normal 4.70-6.10 [facility] Comment on above: Performed By: #### U RTPCR #### [facility] [address] [place] [address] Dr. Dwight Waters WBC 6.9 103/ul Normal 4.0-11.0 [facility] Comment on above: Performed By: #### U RTPCR #### [facility] [address] [place] [address] Dr. Dwight Waters CHLORIDEon 07-03-2022 Chloride [Moles/Vol] 108 mmol/L Critically high 98-107 [facility] Comment on above: Performed By: #### C BC #### [facility] [address] [place] [address] Dr. Dwight Waters CO2on 07-03-2022 CO2 [Moles/Vol] 25.2 mmol/L Normal 21.0-32.0 [facility] Comment on above: Performed By: #### C BC #### [facility] [address] [place] [address] Dr. Dwight Waters CREATININEon 07-03-2022 Creatinine [Mass/Vol] 1.03 mg/dL Normal 0.70-1.30 [facility] Comment on above: Performed By: #### U RTPCR #### [facility] [address] [place] [address] Dr. Dwight Waters EGFR-AF GRENADIAN >60 Normal >=60 [facility] Comment on above: Performed By: #### U RTPCR #### [facility] [address] [place] [address] Dr. Dwight Waters EGFR-NON AF GRENADIAN >60 Normal >=60 [facility] Comment on above: Performed By: #### U RTPCR #### [facility] [address] [place] [address] Dr. Dwight Waters GGTon 07-03-2022 Gamma glutamyl transferase [Catalytic activity/Vol] 31 U/L Normal 15-85 [facility] Comment on above: Performed By: #### U RTPCR #### [facility] [address] [place] [address] Dr. Dwight Waters GLUCOSE BLOODon 07-03-2022 Glucose [Mass/Vol] 119 mg/dL Critically high 74-106 T [facility] Comment on above: Performed By: #### U RTPCR #### [facility] [address] [place] [address] Dr. Dwight Waters MAGNESIUMon 07-03-2022 Magnesium [Mass/Vol] 1.4 mg/dL Critically low 1.8-2.4 [facility] Comment on above: Performed By: #### C BC #### [facility] [address] [place] [address] Dr. Dwight Waters NAon 07-03-2022 Sodium [Moles/Vol] 142 mmol/L Normal 136-145 [facility] Comment on above: Performed By: #### C MP #### [facility] [address] [place] [address] Dr. Dwight Waters PHOSPHORUSon 07-03-2022 Phosphate [Mass/Vol] 3.4 mg/dL Normal 2.6-4.7 [facility] Comment on above: Performed By: #### C BC #### [facility] [address] [place] [address] Dr. Dwight Waters POTASSIUMon 07-03-2022 Potassium [Moles/Vol] 4.1 mmol/L Normal 3.5-5.1 [facility] Comment on above: Performed By: #### C BC #### [facility] [address] [place] [address] Dr. Dwight Waters SGOTon 07-03-2022 AST [Catalytic activity/Vol] 14 U/L Critically low 15-37 [facility] Comment on above: Performed By: #### C BC #### [facility] [address] [place] [address] Dr. Dwight Waters SGPTon 07-03-2022 ALT [Catalytic activity/Vol] 25 U/L Normal 16-63 [facility] Comment on above: Performed By: #### C BC #### [facility] [address] [place] [address] Dr. Dwight Waters US KIDNEYSon 07-03-2022 US KIDNEYS Ultrasound kidneys, bilateral HISTORY: Transplant of kidney , pain in the right lower quadrant COMPARISON: None. TECHNIQUE: Transabdominal ultrasound imaging of both kidneys was performed. FINDINGS: The ruby kidneys are diffusely echogenic and atrophic with cortical thinning. The right kidney measures 8.3 x 3.5 x 4.07 m and the left measures 9.9 x 3.8 x 3.6 cm. No hydronephrosis of the ruby kidneys. There is a renal transplant in [...] stone involving the renal transplant. 2. Atrophic ruby kidneys. 3. Normal bladder. Electronically authenticated by: ARCELIA PIZARRO Date: 2022-07-03 17:22 Normal [facility] CT Abdomen and Pelvis WO con traston 06-27-2022 IMPRESSION: 1. Both ruby kidneys are atrophic with improvement in right-sided [...] Adrenals: Adrenal glands are unremarkable. Kidneys: Both ruby kidneys are atrophic. Interval improvement in right ruby kidney hydronephrosis since May 15, 2022. Status [...] Adrenals: Adrenal glands are unremarkable. Kidneys: Both ruby kidneys are atrophic. Interval improvement in right ruby kidney hydronephrosis since May 15, 2022. Status [...] aggressive osseous lesions. IMPRESSION IMPRESSION: 1. Both ruby kidneys are atrophic with improvement in right-sided hydronephrosis since May 15, 2022. 2. 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 No hydronephrosis. No discrete perinephric collection. 3. Partially imaged postsurgical changes related to prior liver transplant. 4. The bladder is decompressed, limiting evaluation. [facility]narrative[facility] WO con trastOrdered By: Gera Lu on 06-27-2022 [facility] Work Phone: CBC AUTO DIFFon 06-18-2022 BASO # 0.0 103/ul Normal 0.0-0.1 [facility] Comment on above: Performed By: #### U RTPCR #### [facility] [address] [place] [address] Dr. Dwight Waters Basophils/100 WBC (Bld) 0.5 % Normal 0.2-2.0 [facility] Comment on above: Performed By: #### U RTPCR #### [facility] [address] [address] [address] Dwight Waters EO # 0.2 103/ul Normal 0.0-0.7 [facility] Comment on above: Performed By: #### U RTPCR #### [facility] [address] [place] [address] Dr. Dwight Waters Eosinophils/100 WBC (Bld) 2.3 % Normal 0.9-7.0 [facility] Comment on above: Performed By: #### U RTPCR #### [facility] [address] [place] [address] Dr. Dwight Waters Erythrocyte distribution width (RBC) [Ratio] 12.9 % Normal 11.0-15.0 [facility] Comment on above: Performed By: #### U RTPCR #### [facility] [address] [place] [address] Dr. Dwight Waters Hematocrit (Bld) [Volume fraction] 41.2 % Critically low 42.0-54.0 [facility] Comment on above: Performed By: #### U RTPCR #### [facility] [address] [place] [address] Dr. Dwight Waters Hemoglobin (Bld) [Mass/Vol] 13.3 g/dL Critically low 14.0-18.0 [facility] Comment on above: Performed By: #### U RTPCR #### [facility] [address] [place] [address] Dr. Dwight Waters IG # 0.04 10e3/ul Critically high 0.00-0.03 [facility] Comment on above: Performed By: #### U RTPCR #### [facility] [address] [place] [address] Dr. Dwight Waters IG % 0.5 % Normal 0.0-0.5 [facility] Comment on above: Performed By: #### U RTPCR #### [facility] [address] [place] [address] Dr. Dwight Waters LYMPH # 2.0 103/ul Normal 1.2-3.8 [facility] Comment on above: Performed By: #### U RTPCR #### [facility] [address] [place] [place] [address] Dr. Dwigth Waters Lymphocytes/100 WBC (Bld) 22.9 % Normal 20.5-60.0 [facility] Comment on above: Performed By: #### U RTPCR #### [facility] [address] [place] [address] Dr. Dwight Waters MANUAL DIFF REQ NO Normal [facility] Comment on above: Performed By: #### U RTPCR #### [facility] [address] [place] [address] Dr. Dwight Waters MCH (RBC) [Entitic mass] 28.7 pg Normal 25.9-34.0 [facility] Comment on above: Performed By: #### U RTPCR #### [facility] [address] [place] [address] Dr. Dwight Waters MCHC (RBC) [Mass/Vol] 32.3 g/dL Normal 29.9-35.2 [facility] Comment on above: Performed By: #### U RTPCR #### [facility] [address] [place] [address] Dr. Dwight Waters MCV (RBC) [Entitic vol] 88.8 fL Normal 80.0-94.0 [facility] Comment on above: Performed By: #### U RTPCR #### [facility] [address] [place] [address] Dr. Dwight Waters MONO # 0.8 103/ul Normal 0.3-0.8 [facility] Comment on above: Performed By: #### U RTPCR #### [facility] [address] [place] [address] Dr. Dwight Waters Monocytes/100 WBC (Bld) 9.7 % Normal 1.7-12.0 [facility] Comment on above: Performed By: #### U RTPCR #### [facility] [address] [place] [address] Dr. Dwight Waters NEUT # 5.6 103/ul Normal 1.4-6.5 [facility] Comment on above: Performed By: #### U RTPCR #### [facility] [address] [place] [address] Dr. Dwight Waters Neutrophils/100 WBC (Bld) 64.1 % Normal 43.0-75.0 [facility] Comment on above: Performed By: #### U RTPCR #### [facility] [address] [place] [address] Dr. Dwight Waters Platelet mean volume (Bld) [Entitic vol] 10.0 fL Normal 9.5-13.5 [facility] Comment on above: Performed By: #### U RTPCR #### [facility] [address] [address] [address] Dwight Waters PLT 270 103/ul Normal 150-450 [facility] Comment on above: Performed By: #### U RTPCR #### [facility] [address] [address] [address] Dwight Waters RBC 4.64 106/ul Critically low 4.70-6.10 [facility] Comment on above: Performed By: #### U RTPCR #### [facility] [address] [address] [address] Dwight Waters WBC 8.7 103/ul Normal 4.0-11.0 [facility] Comment on above: Performed By: #### U RTPCR #### [facility] [address] [place] [address] Dr. Dwight Waters CULTURE URINEon 06-18-2022 CULTURE URINE Culture Observations : NO GROWTH. Normal [facility] Comment on above: Performed By: #### U RTPCR #### [facility] [address] [place] [address] Dr. Dwight Waters [facility] SARS-CoV-2 (COVID-19) RNA ESTELITA+probe Ql (Unsp spec) Not detected Normal NOT DETECTED [facility] Comment on above: Result Comment: When [...] for this test is supported by the [employer] Supervisor of Health and Human Service's declaration that [...] used). Performed By: #### C BC #### [facility] [address] [place] [address] Dr. Dwight Waters ER URINE PROFILEon 2 Bilirubin Ql (U) Negative Normal NEGATIVE [facility] Comment on above: Performed By: #### U RTPCR #### [facility] [address] [place] [address] Dr. Dwight Waters Clarity (U) CLEAR Normal CLEAR [facility] Comment on above: Performed By: #### U RTPCR #### [facility] [address] [place] [address] Dr. Dwight Waters Color (U) YELLOW Normal YELLOW [facility] Comment on above: Performed By: #### U RTPCR #### [facility] [address] [place] [address] Dr. Dwight Waters ERUAHD A micrscopic examina tion will be performed if indicated. Normal [facility] Comment on above: Performed By: #### U RTPCR #### [facility] [address] [place] [address] Dr. Dwight Waters Glucose Ql (U) Negative Normal NEGATIVE [facility] Comment on above: Performed By: #### U RTPCR #### [facility] [address] [place] [address] Dr. Dwight Waters Hemoglobin Ql (U) LARGE Abnormal NEGATIVE [facility] Comment on above: Performed By: #### U RTPCR #### [facility] [address] [place] [address] Dr. Dwight Waters Ketones Ql (U) Negative Normal NEGATIVE [facility] Comment on above: Performed By: #### U RTPCR #### [facility] [address] [place] [address] Dr. Dwight Waters LEUKOCYTES TRACE Abnormal NEGATIVE [facility] Comment on above: Performed By: #### U RTPCR #### [facility] [address] [place] [address] Dr. Dwight Waters Nitrite Ql (U) Negative Normal NEGATIVE [facility] Comment on above: Performed By: #### U RTPCR #### [facility] [address] [address] [address] Dwight Waters pH (U) 6.0 [pH] Normal 5-9 [facility] Comment on above: Performed By: #### U RTPCR #### [facility] [address] [place] [address] Dr. Dwight Waters Protein (U) [Mass/Vol] 30 mg/dL Abnormal NEGATIVE/ TRACE [facility] Comment on above: Performed By: #### U RTPCR #### [facility] [address] [place] [address] Dr. Dwight Waters SPEC GRAVITY >=1.030 Abnormal 1.005-<=1.02 5 [facility] Comment on above: Performed By: #### U RTPCR #### [facility] [address] [place] [address] Dr. Dwight Waters UR MICRO IND INDICATED Normal [facility] Comment on above: Performed By: #### U RTPCR #### [facility] [address] [place] [address] Dr. Dwight Waters Urobilinogen Qn (U) 0.2 {Alyssa'U}/dL Normal 0.2 - 1. 0 [facility] Comment on above: Performed By: #### U RTPCR #### [facility] [address] [place] [address] Dr. Dwight Waters PROF 14(COMP METB)on 022 Albumin [Mass/Vol] 3.7 g/dL Normal 3.4-5.0 [facility] Comment on above: Performed By: #### C MP #### [facility] [address] [place] [address] Dr. Dwight Waters Albumin/Globulin [Mass ratio] 0.9 {ratio} Normal [facility] Comment on above: Performed By: #### C MP #### [facility] [address] [place] [address] Dr. Dwight Waters ALP [Catalytic activity/Vol] 80 U/L Normal 46-116 [facility] Comment on above: Performed By: #### C MP #### [facility] [address] [place] [address] Dr. Dwight Waters ALT [Catalytic activity/Vol] 24 U/L Normal 16-63 [facility] Comment on above: Performed By: #### C MP #### [facility] [address] [place] [address] Dr. Dwight Waters Anion gap [Moles/Vol] 12.9 mmol/L Normal [facility] Comment on above: Performed By: #### C MP #### [facility] [address] [place] [address] Dr. Dwight Waters AST [Catalytic activity/Vol] 17 U/L Normal 15-37 [facility] Comment on above: Performed By: #### C MP #### [facility] [address] [place] [address] Dr. Dwight Waters Bilirubin [Mass/Vol] 0.8 mg/dL Normal 0.2-1.0 [facility] Comment on above: Performed By: #### C MP #### [facility] [address] [place] [address] Dr. Dwight Waters Calcium [Mass/Vol] 9.4 mg/dL Normal 8.5-10.1 [facility] Comment on above: Performed By: #### C MP #### [facility] [address] [place] [address] Dr. Dwight Waters Chloride [Moles/Vol] 106 mmol/L Normal 98-107 [facility] Comment on above: Performed By: #### C MP #### [facility] [address] [place] [address] Dr. Dwight Waters CO2 [Moles/Vol] 25.3 mmol/L Normal 21.0-32.0 [facility] Comment on above: Performed By: #### C MP #### [facility] [address] [place] [address] Dr. Dwight Waters Creatinine [Mass/Vol] 1.29 mg/dL Normal 0.70-1.30 [facility] Comment on above: Performed By: #### C MP #### [facility] [address] [place] [address] Dr. Dwight Waters EGFR-AF GRENADIAN >60 Normal >=60 [facility] Comment on above: Performed By: #### C MP #### [facility] [address] [address] [address] Dwight Waters EGFR-NON AF GRENADIAN 59 mL/min/1.73m2 Critically low >=60 [facility] Comment on above: Performed By: #### C MP #### [facility] [address] [address] [address] Dwight Waters Globulin (S) [Mass/Vol] 4.2 g/dL Normal [facility] Comment on above: Performed By: #### C MP #### [facility] [address] [place] [address] Dr. Dwight Waters Glucose [Mass/Vol] 106 mg/dL Normal 74-106 [facility] Comment on above: Performed By: #### C MP #### [facility] [address] [address] [address] Dwight Waters Potassium [Moles/Vol] 4.2 mmol/L Normal 3.5-5.1 [facility] Comment on above: Performed By: #### C MP #### [facility] [address] [place] [address] Dr. Dwight Waters Protein [Mass/Vol] 7.9 g/dL Normal 6.4-8.2 [facility] Comment on above: Performed By: #### C MP #### [facility] [address] [address] [address] Dwight Waters Sodium [Moles/Vol] 140 mmol/L Normal 136-145 [facility] Comment on above: Performed By: #### C MP #### [facility] [address] [address] [address] Dwight Waters Urea nitrogen [Mass/Vol] 22.0 mg/dL Critically high 7.0-18.0 [facility] Comment on above: Performed By: #### C MP #### [facility] [address] [address] [address] Dwight Waters Urea nitrogen/Creatinine [Mass ratio] 17.1 mg/mg Normal [facility] Comment on above: Performed By: #### C MP #### [facility] [address] [place] [address] Dr. Dwight Waters URINE MICROSCOPIC ONLYon BACTERIA TRACE Abnormal NONE SEEN [facility] Comment on above: Performed By: #### U RTPCR #### [facility] [address] [place] [address] Dr. Dwight Waters Bacteria identified Cx Nom (U) INDICATED Normal [facility] Comment on above: Performed By: #### U RTPCR #### [facility] [address] [place] [address] Dr. Dwight Waters CAST NONE SEEN Normal NONE SEEN [facility] Comment on above: Performed By: #### U RTPCR #### [facility] [address] [place] [address] Dr. Dwight Waters Crystals LM Nom (Urine sed) NONE SEEN Normal NONE SEEN [facility] Comment on above: Performed By: #### U RTPCR #### [facility] [address] [place] [address] Dr. Dwight Waters Epithelial cells LM Ql (Urine sed) NONE SEEN Normal NONE SEEN /RARE [facility] Comment on above: Performed By: #### U RTPCR #### [facility] [address] [place] [address] Dr. Dwight Waters MUCOUS NONE SEEN Normal NONE SEEN [facility] Comment on above: Performed By: #### U RTPCR #### [facility] [address] [place] [address] Dr. Dwight Waters RBC 5-10 Abnormal 0-2 [facility] Comment on above: Performed By: #### U RTPCR #### [facility] [address] [place] [address] Dr. Dwight Waters WBC 10-20 Abnormal NONE SEEN [facility] Comment on above: Performed By: #### U RTPCR #### [facility] [address] [place] [address] Dr. Dwight Waters ALLOSCREEN RECIPIENT (POST T X PRA)on 06-13-2022 AB SPECIFICITY CLASS COMMENT Antibody Specificity testing performed by [employer]. cPRA calculation based on identification of HLA antibody specificities at MFI >2000 and/or presence of CREG antibodies. [facility] Comment on above: Some of the reagents used for testing in the Clinical Histocompatibility Laboratory have yet to be approved by the FDA. Our certification by CLIA to perform high complexity tests allows us to use these reagents in the context of a stringent QC program, and obviates the need for FDA approval.Testing performed by the [facility] Clinical Histocompatibility Laboratory. [facility] number: [id number]. CLIA number: [id number], Director: Carlito Merchant, PhD, D([facility]). ANTIBODY SPECIFICITY INTERPRETATION Detected [facility] CLASS I SPECIFICITIES Not detected [facility] CLASS II SPECIFICITIES Not detected [facility] HLA Ab (S) 0 % 0 [facility] EXTRA MICROon 06-13-2022 [facility] URINE CULTUREOrdered By: Jah Upton on 06-13-2022 Bacteria identified Cx Nom (Unsp spec) Growth [facility] Bacteria identified Cx Nom (Unsp spec) 10,000-50,000 CFU/mL Mixed skin shimon [facility] Comment on above: Multiple bacterial m orphotypes present. Suggest appropriate recollection if clinically indicated. [facility] CBC,PLATELETSon 06-12-2022 Erythrocyte distribution width (RBC) [Ratio] 13.0 % 10.9 - 14.3 % [facility] Hematocrit (Bld) [Volume fraction] 43.2 % 39.6 - 48.8 % [facility] Hemoglobin (Bld) [Mass/Vol] 13.9 g/dL 13.4 - 16.8 g/dL [facility] Interpretation and review of laboratory results Normal [facility] MCH (RBC) [Entitic mass] 28.7 pg 26.1 - 33.3 pg [facility] MCHC (RBC) [Mass/Vol] 32.2 g/dL 31.9 - 36.5 g/dL [facility] MCV (RBC) [Entitic vol] 89.1 fL 79.0 - 94.5 fL [facility] Platelet mean volume (Bld) [Entitic vol] 10.5 fL 8.7 - 12.3 fL [facility] Platelets (Bld) [#/Vol] 269 10*3/uL 146 - 337 K/uL [facility] RBC (Bld) [#/Vol] 4.85 10*6/uL [facility] WBC (Bld) [#/Vol] 7.68 10*3/uL 3.73 - 10. 10 K/uL [facility] CHEM 7 (LYTES,BUN,CREA,GLUC) on 06-12-2022 Anion gap [Moles/Vol] 14 mmol/L 7 - 17 mmol/L [facility] Chloride [Moles/Vol] 106 mmol/L 98 - 10 8 mmol/L [facility] CO2 [Moles/Vol] 25 mmol/L 21 - 31 mmol/L [facility] Creatinine [Mass/Vol] 1.26 mg/dL 0.70 - 1.30 mg/dL [facility] GFR/1.73 sq M.predicted CKD-EPI (S/P/Bld) [Vol rate/Area] 69 >=60 mL/min/1.73m 2 [facility] Comment on above: Reported eGFR is bas ed on the CKD-EPI 2020 equation using creatinine, age, and sex. Glucose [Mass/Vol] 83 mg/dL 70 - 99 mg/dL [facility] Osmolality Calc [Osmolality] 295 [facility] Potassium [Moles/Vol] 3.8 mmol/L 3.5 - 5.0 mmol/L [facility] Sodium [Moles/Vol] 141 mmol/L 135 - 145 mmol/L [facility] Urea nitrogen [Mass/Vol] 18 mg/dL 7 - 25 mg/dL [facility] Urea nitrogen/Creatinine [Mass ratio] 14 mg/mg [facility] GGTon 06-12-2022 Gamma glutamyl transferase [Catalytic activity/Vol] 20 U/L 8 - 64 U/L [facility] HEMOGLOBIN [id number] By: [employer] on 06-12-2022 Average glucose Estimated from glycated hemoglobin (Bld) [Mass/Vol] 126 mg/dL [facility] HbA1c (Bld) [Mass fraction] 6.0 % High 4.7 - 5.6 % [facility] Interpretation and review of laboratory results Abnormal [facility] HEPATIC FUNCTION PANELon Albumin [Mass/Vol] 4.3 g/dL 3.5 - 5.0 g/dL [facility] ALP [Catalytic activity/Vol] 78 U/L 32 - 126 U/L [facility] ALT [Catalytic activity/Vol] 12 U/L 10 - 52 U/L [facility] AST [Catalytic activity/Vol] 16 U/L 10 - 39 U/L [facility] Bilirubin [Mass/Vol] 1.0 mg/dL <1.5 [facility] Bilirubin.direct [Mass/Vol] 0.2 mg/dL <0.3 [facility] Protein [Mass/Vol] 7.5 g/dL 6.4 - 8.3 g/dL [facility] No Panel Informationon 06-12 Interpretation and review of laboratory results Normal [facility] PTH INTACTOrdered By: Marli Lizarraga on 06-12-2022 Interpretation and review of laboratory results Abnormal [facility] Parathyrin.intact [Mass/Vol] 79.7 pg/mL High 14.0 - 72.0 pg/mL [facility] URINALYSIS REFLEX TO CULTURE PERFORMABLEon 06-12-2022 Appearance (U) Clear Clear [facility] Bacteria LM Ql (Urine sed) ABSENT ABSENT [facility] Color (U) Yellow Yellow [facility] Epithelial cells.squamous LM Ql (Urine sed) 1/hpf = 1+ 1/hpf = 1+, 2-5/hpf = 2+, 0/hpf = 0+, ABSENT [facility] Glucose Test strip (U) [Mass/Vol] Negative Negative [facility] Interpretation and review of laboratory results Abnormal [facility] Ketones (U) [Mass/Vol] Trace Abnormal Negative [facility] Leukocyte esterase Test strip Ql (U) Small Abnormal Negative [facility] Nitrite Ql (U) Negative Negative [facility] pH (U) 5.5 [pH] 5.0 - 7.0 [facility] Protein (U) [Mass/Vol] 30 mg/dL Abnormal Negative [facility] RBC (U) [#/Vol] Trace Abnormal Negative [facility] RBC LM.HPF (Urine sed) [#/Area] 0-2 0 - 2 /HPF [facility] Specific gravity (U) [Rel density] 1.026 [facility] Urobilinogen (U) [Mass/Vol] 0.2 E.U./dL 0.2 E.U/dL, 1.0 E.U/dL [facility] WBC LM.HPF (Urine sed) [#/Area] 10-20 Abnormal 0 - 5 /HPF [facility] URINE PROTEIN/CREA RATIO, RA NDOMon 06-12-2022 Creatinine (24H U) [Mass/Vol] 231.68 mg/dL [facility] Protein Unsp time (U) [Mass/Vol] 49 mg/dL [facility] Protein/Creatinine (U) [Mass ratio] 0.211 mg/g [facility] FK506 (TACROLIMUS) WHOLE BLO ODon 06-09-2022 Tacrolimus (FK506), Blood 9.8 ng/mL Normal 2.0-20.0 [facility] Comment on above: Result Comment: Trou gh (immediately following transplant) 15.0 . Trough (steady state, 2 weeks or more after transplant): 3.0 - 8.0 . Performed by LC-MS/MS technology. Performed By: #### U RTPCR #### [facility] [address] [place] [address] Dr. Dwight Waters ALBUMINon 06-06-2022 Albumin [Mass/Vol] 3.8 g/dL Normal 3.4-5.0 [facility] Comment on above: Performed By: #### C MP #### [facility] [address] [place] [address] Dr. Dwight Waters ALKALINE PHOSPHAon ALP [Catalytic activity/Vol] 82 U/L Normal 46-116 [facility] Comment on above: Performed By: #### C MP #### [facility] [address] [place] [address] Dr. Dwight Waters BILIRUBIN CONJUGATED (DIRECT )on 06-06-2022 BILI, CONJUGATED 0.2 mg/dL Normal 0.0-0.2 [facility] Comment on above: Performed By: #### C BC #### [facility] [address] [place] [address] Dr. Dwight Waters BILIRUBIN TOTALon 06-06-2022 Bilirubin [Mass/Vol] 1.0 mg/dL Normal 0.2-1.0 [facility] Comment on above: Performed By: #### C BC #### [facility] [address] [place] [address] Dr. Dwight Waters BUNon 06-06-2022 Urea nitrogen [Mass/Vol] 18.0 mg/dL Normal 7.0-18.0 [facility] Comment on above: Performed By: #### C BC #### [facility] [address] [place] [address] Dr. Dwight Waters CALCIUMon 06-06-2022 Calcium [Mass/Vol] 9.4 mg/dL Normal 8.5-10.1 [facility] Comment on above: Performed By: #### C MP #### [facility] [address] [place] [address] Dr. Dwight Waters CBC AUTO DIFFon 06-06-2022 BASO # 0.1 103/ul Normal 0.0-0.1 [facility] Comment on above: Performed By: #### U RTPCR #### [facility] [address] [place] [address] Dr. Dwight Waters Basophils/100 WBC (Bld) 0.8 % Normal 0.2-2.0 [facility] Comment on above: Performed By: #### U RTPCR #### [facility] [address] [place] [address] Dr. Dwight Waters EO # 0.3 103/ul Normal 0.0-0.7 [facility] Comment on above: Performed By: #### U RTPCR #### [facility] [address] [place] [address] Dr. Dwight Waters Eosinophils/100 WBC (Bld) 3.3 % Normal 0.9-7.0 [facility] Comment on above: Performed By: #### U RTPCR #### [facility] [address] [place] [address] Dr. Dwight Waters Erythrocyte distribution width (RBC) [Ratio] 12.4 % Normal 11.0-15.0 [facility] Comment on above: Performed By: #### U RTPCR #### [facility] [address] [place] [address] Dr. Dwight Waters Hematocrit (Bld) [Volume fraction] 45.1 % Normal 42.0-54.0 [facility] Comment on above: Performed By: #### U RTPCR #### [facility] [address] [place] [address] Dr. Dwight Waters Hemoglobin (Bld) [Mass/Vol] 14.4 g/dL Normal 14.0-18.0 [facility] Comment on above: Performed By: #### U RTPCR #### [facility] [address] [place] [address] Dr. Dwight Waters IG # 0.01 10e3/ul Normal 0.00-0.03 [facility] Comment on above: Performed By: #### U RTPCR #### [facility] [address] [place] [address] Dr. Dwight Waters IG % 0.1 % Normal 0.0-0.5 [facility] Comment on above: Performed By: #### U RTPCR #### [facility] [address] [place] [address] Dr. Dwight Waters LYMPH # 2.2 103/ul Normal 1.2-3.8 [facility] Comment on above: Performed By: #### U RTPCR #### [facility] [address] [place] [address] Dr. Dwight Waters Lymphocytes/100 WBC (Bld) 30.0 % Normal 20.5-60.0 [facility] Comment on above: Performed By: #### U RTPCR #### [facility] [address] [place] [address] Dr. Dwight Waters MANUAL DIFF REQ NO Normal [facility] Comment on above: Performed By: #### U RTPCR #### [facility] [address] [place] [address] Dr. Dwight Waters MCH (RBC) [Entitic mass] 28.2 pg Normal 25.9-34.0 [facility] Comment on above: Performed By: #### U RTPCR #### [facility] [address] [place] [address] Dr. Dwight Waters MCHC (RBC) [Mass/Vol] 31.9 g/dL Normal 29.9-35.2 [facility] Comment on above: Performed By: #### U RTPCR #### [facility] [address] [place] [address] Dr. Dwight Waters MCV (RBC) [Entitic vol] 88.3 fL Normal 80.0-94.0 [facility] Comment on above: Performed By: #### U RTPCR #### [facility] [address] [place] [address] Dr. Dwight Waters MONO # 0.6 103/ul Normal 0.3-0.8 [facility] Comment on above: Performed By: #### U RTPCR #### [facility] [address] [place] [address] Dr. Dwight Waters Monocytes/100 WBC (Bld) 8.2 % Normal 1.7-12.0 [facility] Comment on above: Performed By: #### U RTPCR #### [facility] [address] [place] [address] Dr. Dwight Waters NEUT # 4.3 103/ul Normal 1.4-6.5 [facility] Comment on above: Performed By: #### U RTPCR #### [facility] [address] [address] [address] Dwight Waters Neutrophils/100 WBC (Bld) 57.6 % Normal 43.0-75.0 [facility] Comment on above: Performed By: #### U RTPCR #### [facility] [address] [address] [address] Dwight Waters Platelet mean volume (Bld) [Entitic vol] 9.7 fL Normal 9.5-13.5 [facility] Comment on above: Performed By: #### U RTPCR #### [facility] [address] [place] [address] Dr. Dwight Waters PLT 297 103/ul Normal 150-450 [facility] Comment on above: Performed By: #### U RTPCR #### [facility] [address] [place] [address] Dr. Dwight Waters RBC 5.11 106/ul Normal 4.70-6.10 [facility] Comment on above: Performed By: #### U RTPCR #### [facility] [address] [place] [address] Dr. Dwight Waters WBC 7.5 103/ul Normal 4.0-11.0 [facility] Comment on above: Performed By: #### U RTPCR #### [facility] [address] [place] [address] Dr. Dwight Waters CHLORIDEon 06-06-2022 Chloride [Moles/Vol] 107 mmol/L Normal 98-107 [facility] Comment on above: Performed By: #### C BC #### [facility] [address] [place] [address] Dr. Dwight Waters CO2on 06-06-2022 CO2 [Moles/Vol] 27.4 mmol/L Normal 21.0-32.0 [facility] Comment on above: Performed By: #### C BC #### [facility] [address] [place] [address] Dr. Dwight Waters CREATININEon 06-06-2022 Creatinine [Mass/Vol] 1.20 mg/dL Normal 0.70-1.30 [facility] Comment on above: Performed By: #### C BC #### [facility] [address] [place] [address] Dr. Dwight Wtaers EGFR-AF GRENADIAN >60 Normal >=60 [facility] Comment on above: Performed By: #### C BC #### [facility] [address] [place] [address] Dr. Dwight Waters EGFR-NON AF GRENADIAN >60 Normal >=60 [facility] Comment on above: Performed By: #### C BC #### [facility] [address] [place] [address] Dr. Dwight Waters GGTon 06-06-2022 Gamma glutamyl transferase [Catalytic activity/Vol] 29 U/L Normal 15-85 [facility] Comment on above: Performed By: #### C BC #### [facility] [address] [place] [address] Dr. Dwight Waters GLUCOSE BLOODon 06-06-2022 Glucose [Mass/Vol] 112 mg/dL Critically high 74-106 [facility] Comment on above: Performed By: #### C BC #### [facility] [address] [place] [address] Dr. Dwight Waters MAGNESIUMon 06-06-2022 Magnesium [Mass/Vol] 1.3 mg/dL Critically low 1.8-2.4 [facility] Comment on above: Performed By: #### C MP #### [facility] [address] [place] [address] Dr. Dwight Waters NAon 06-06-2022 Sodium [Moles/Vol] 141 mmol/L Normal 136-145 [facility] Comment on above: Performed By: #### C MP #### [facility] [address] [place] [address] Dr. Dwight Waters PHOSPHORUSon 06-06-2022 Phosphate [Mass/Vol] 3.1 mg/dL Normal 2.6-4.7 [facility] Comment on above: Performed By: #### C MP #### [facility] [address] [place] [address] Dr. Dwight Waters POTASSIUMon 06-06-2022 Potassium [Moles/Vol] 4.3 mmol/L Normal 3.5-5.1 [facility] Comment on above: Performed By: #### C BC #### [facility] [address] [address] [address] Dwight Waters SGOTon 06-06-2022 AST [Catalytic activity/Vol] 16 U/L Normal 15-37 [facility] Comment on above: Performed By: #### C BC #### [facility] [address] [address] [address] Dwight Waters SGPTon 06-06-2022 ALT [Catalytic activity/Vol] 50 U/L Normal 16-63 [facility] Comment on above: Performed By: #### C BC #### [facility] [address] [address] [address] Dwight Waters Bacteria identified Cx Nom ( Bld)on 05-21-2022 Bacteria identified Cx Nom (Unsp spec) NO GROWTH DAY 5 OF 5 [facility] Results may be compr omised due to volume of BACT\ALERT bottle exceeding 10mLs . The optimal blood volume is 8-10 mls per aerobic/anaerobic blood culture bottle. [facility] CALCIUMon 05-20-2022 Calcium [Mass/Vol] 9.1 mg/dL 8.6 - 10. 5 mg/dL [facility] CBC,PLATELETSon 05-20-2022 Erythrocyte distribution width (RBC) [Ratio] 12.5 % 10.9 - 14.3 % [facility] Hematocrit (Bld) [Volume fraction] 37.1 % Low 39.6 - 48.8 % [facility] Hemoglobin (Bld) [Mass/Vol] 12.3 g/dL Low 13.4 - 16.8 g/dL [facility] Interpretation and review of laboratory results Abnormal [facility] MCH (RBC) [Entitic mass] 28.9 pg 26.1 - 33.3 pg [facility] MCHC (RBC) [Mass/Vol] 33.2 g/dL 31.9 - 36.5 g/dL [facility] MCV (RBC) [Entitic vol] 87.3 fL 79.0 - 94.5 fL [facility] Platelet mean volume (Bld) [Entitic vol] 9.9 fL 8.7 - 12.3 fL [facility] Platelets (Bld) [#/Vol] 234 10*3/uL 146 - 337 K/uL [facility] RBC (Bld) [#/Vol] 4.25 10*6/uL Low [facility] WBC (Bld) [#/Vol] 6.31 10*3/uL 3.73 - 10. 10 K/uL [facility] CHEM 7 (LYTES,BUN,CREA,GLUC) on 05-20-2022 Anion gap [Moles/Vol] 15 mmol/L 7 - 17 mmol/L [facility] Chloride [Moles/Vol] 111 mmol/L High 98 - 10 8 mmol/L [facility] CO2 [Moles/Vol] 22 mmol/L 21 - 31 mmol/L [facility] Creatinine [Mass/Vol] 1.10 mg/dL 0.70 - 1.30 mg/dL [facility] GFR/1.73 sq M.predicted CKD-EPI (S/P/Bld) [Vol rate/Area] 81 >=60 mL/min/1.73m 2 [facility] Comment on above: Reported eGFR is bas ed on the CKD-EPI 2020 equation using creatinine, age, and sex. Glucose [Mass/Vol] 92 mg/dL 70 - 99 mg/dL [facility] Interpretation and review of laboratory results Abnormal [facility] Osmolality Calc [Osmolality] 302 [facility] Potassium [Moles/Vol] 4.4 mmol/L 3.5 - 5.0 mmol/L [facility] Sodium [Moles/Vol] 144 mmol/L 135 - 145 mmol/L [facility] Urea nitrogen [Mass/Vol] 18 mg/dL 7 - 25 mg/dL [facility] Urea nitrogen/Creatinine [Mass ratio] 16 mg/mg [facility]NESIUM[facility] 05-20-2022 Interpretation and review of laboratory results Abnormal [facility] Magnesium [Mass/Vol] 1.5 mg/dL Low 1.6 - 2 .6 mg/dL [facility] No Panel Informationon 05-20 Interpretation and review of laboratory results Normal [facility] PHOSPHATE, INORGANICon 05-20 Phosphate [Mass/Vol] 3.3 mg/dL 2.2 - 4 .6 mg/dL [facility] RF Unspecified body region V iews during [...] projections of kidneys, ureters, and bladder. FINDINGS: Public Safety Director images: Public Safety Director radiographs of the abdomen reveal a nonobstructive [...] Contrast refluxes up the ureter to the ruby right kidney that is grossly normal appearing. [...] projections of kidneys, ureters, and bladder. FINDINGS: Public Safety Director images: Public Safety Director radiographs of the abdomen reveal a nonobstructive [...] Contrast refluxes up the ureter to the ruby right kidney that is grossly normal appearing. [...] have reviewed and approved this report. [facility] Radiology Study observation (narrative) [facility] RF Unspecified body region V iews during surgeryOrdered By: Lizz Campos on 05-20-2022 [facility] Work Phone: CALCIUMon 05-19-2022 Calcium [Mass/Vol] 9.2 mg/dL 8.6 - 10. 5 mg/dL [facility] Calcium [Mass/Vol] 8.6 mg/dL 8.6 - 10. 5 mg/dL [facility] CBC,PLATELETSon 05-19-2022 Erythrocyte distribution width (RBC) [Ratio] 12.4 % 10.9 - 14.3 % [facility] Hematocrit (Bld) [Volume fraction] 38.0 % Low 39.6 - 48.8 % [facility] Hemoglobin (Bld) [Mass/Vol] 12.0 g/dL Low 13.4 - 16.8 g/dL [facility] Interpretation and review of laboratory results Abnormal [facility] MCH (RBC) [Entitic mass] 28.6 pg 26.1 - 33.3 pg [facility] MCHC (RBC) [Mass/Vol] 31.6 g/dL Low 31.9 - 36.5 g/dL [facility] MCV (RBC) [Entitic vol] 90.5 fL 79.0 - 94.5 fL [facility] Platelet mean volume (Bld) [Entitic vol] 9.7 fL 8.7 - 12.3 fL [facility] Platelets (Bld) [#/Vol] 199 10*3/uL 146 - 337 K/uL [facility] RBC (Bld) [#/Vol] 4.20 10*6/uL Low [facility] WBC (Bld) [#/Vol] 6.81 10*3/uL 3.73 - 10. 10 K/uL [facility] CHEM 7 (LYTES,BUN,CREA,GLUC) on 05-19-2022 Anion gap [Moles/Vol] 13 mmol/L 7 - 17 mmol/L [facility] Chloride [Moles/Vol] 105 mmol/L 98 - 10 8 mmol/L [facility] CO2 [Moles/Vol] 30 mmol/L 21 - 31 mmol/L [facility] Creatinine [Mass/Vol] 1.39 mg/dL High 0.70 - 1.30 mg/dL [facility] GFR/1.73 sq M.predicted CKD-EPI (S/P/Bld) [Vol rate/Area] 61 >=60 mL/min/1.73m 2 [facility] Comment on above: Reported eGFR is bas ed on the CKD-EPI 2020 equation using creatinine, age, and sex. Glucose [Mass/Vol] 121 mg/dL High 70 - 99 mg/dL [facility] Interpretation and review of laboratory results Abnormal [facility] Osmolality Calc [Osmolality] 303 [facility] Potassium [Moles/Vol] 3.8 mmol/L 3.5 - 5.0 mmol/L [facility] Sodium [Moles/Vol] 144 mmol/L 135 - 145 mmol/L [facility] Urea nitrogen [Mass/Vol] 18 mg/dL 7 - 25 mg/dL [facility] Urea nitrogen/Creatinine [Mass ratio] 13 mg/mg [facility] Anion gap [Moles/Vol] 15 mmol/L 7 - 17 mmol/L [facility] Chloride [Moles/Vol] 106 mmol/L 98 - 10 8 mmol/L [facility] CO2 [Moles/Vol] 24 mmol/L 21 - 31 mmol/L [facility] Creatinine [Mass/Vol] 1.46 mg/dL High 0.70 - 1.30 mg/dL [facility] GFR/1.73 sq M.predicted CKD-EPI (S/P/Bld) [Vol rate/Area] 58 Low >=60 mL/min/1.73m 2 [facility] Comment on above: Reported eGFR is bas ed on the CKD-EPI 1 equation using creatinine, age, and sex. Glucose [Mass/Vol] 103 mg/dL High 70 - 99 mg/dL [facility] Interpretation and review of laboratory results Abnormal [facility] Osmolality Calc [Osmolality] 298 [facility] Potassium [Moles/Vol] 3.9 mmol/L 3.5 - 5.0 mmol/L [facility] Sodium [Moles/Vol] 141 mmol/L 135 - 145 mmol/L [facility] Urea nitrogen [Mass/Vol] 21 mg/dL 7 - 25 mg/dL [facility] Urea nitrogen/Creatinine [Mass ratio] 14 mg/mg [facility] MAGNESIUMon 05-19-2022 Magnesium [Mass/Vol] 2.0 mg/dL 1.6 - 2 .6 mg/dL [facility] Magnesium [Mass/Vol] 1.7 mg/dL 1.6 - 2 .6 mg/dL [facility] No Panel Informationon 05-19 Interpretation and review of laboratory results Normal [facility] Interpretation and review of laboratory results Normal [facility] PHOSPHATE, INORGANICon 05-19 Phosphate [Mass/Vol] 3.0 mg/dL 2.2 - 4 .6 mg/dL [facility] Phosphate [Mass/Vol] 2.7 mg/dL 2.2 - 4 .6 mg/dL [facility] CALCIUMon 05-18-2022 Calcium [Mass/Vol] 9.1 mg/dL 8.6 - 10. 5 mg/dL [facility] CBC,PLATELETSon 05-18-2022 Erythrocyte distribution width (RBC) [Ratio] 12.5 % 10.9 - 14.3 % [facility] Hematocrit (Bld) [Volume fraction] 37.3 % Low 39.6 - 48.8 % [facility] Hemoglobin (Bld) [Mass/Vol] 11.9 g/dL Low 13.4 - 16.8 g/dL [facility] Interpretation and review of laboratory results Abnormal [facility] MCH (RBC) [Entitic mass] 28.9 pg 26.1 - 33.3 pg [facility] MCHC (RBC) [Mass/Vol] 31.9 g/dL 31.9 - 36.5 g/dL [facility] MCV (RBC) [Entitic vol] 90.5 fL 79.0 - 94.5 fL [facility] Platelet mean volume (Bld) [Entitic vol] 10.1 fL 8.7 - 12.3 fL [facility] Platelets (Bld) [#/Vol] 189 10*3/uL 146 - 337 K/uL [facility] RBC (Bld) [#/Vol] 4.12 10*6/uL Low [facility] WBC (Bld) [#/Vol] 10.19 10*3/uL High 3.73 - 10 .10 K/uL [facility] CHEM 7 (LYTES,BUN,CREA,GLUC) on 05-18-2022 Anion gap [Moles/Vol] 13 mmol/L 7 - 17 mmol/L [facility] Chloride [Moles/Vol] 102 mmol/L 98 - 10 8 mmol/L [facility] CO2 [Moles/Vol] 26 mmol/L 21 - 31 mmol/L [facility] Creatinine [Mass/Vol] 1.91 mg/dL High 0.70 - 1.30 mg/dL [facility] GFR/1.73 sq M.predicted CKD-EPI (S/P/Bld) [Vol rate/Area] 42 Low >=60 mL/min/1.73m 2 [facility] Comment on above: Reported eGFR is bas ed on the CKD-EPI 2020 equation using creatinine, age, and sex. Glucose [Mass/Vol] 158 mg/dL High 70 - 99 mg/dL [facility] Osmolality Calc [Osmolality] 297 [facility] Potassium [Moles/Vol] 4.0 mmol/L 3.5 - 5.0 mmol/L [facility] Sodium [Moles/Vol] 137 mmol/L 135 - 145 mmol/L [facility] Urea nitrogen [Mass/Vol] 30 mg/dL High 7 - 25 mg/dL [facility] Urea nitrogen/Creatinine [Mass ratio] 16 mg/mg [facility] CHEM 7 (LYTES,BUN,CREA,GLUC) Ordered By: Tamiko Thapa on 05-18-2022 Anion gap [Moles/Vol] 13 mmol/L 7 - 17 mmol/L [facility] Chloride [Moles/Vol] 104 mmol/L 98 - 10 8 mmol/L [facility] CO2 [Moles/Vol] 26 mmol/L 21 - 31 mmol/L [facility] Creatinine [Mass/Vol] 2.96 mg/dL High 0.70 - 1.30 mg/dL [facility] GFR/1.73 sq M.predicted CKD-EPI (S/P/Bld) [Vol rate/Area] 25 Low >=60 mL/min/1.73m 2 [facility] Comment on above: Reported eGFR is bas ed on the CKD-EPI 2020 equation using creatinine, age, and sex. Glucose [Mass/Vol] 136 mg/dL High 70 - 99 mg/dL [facility] Interpretation and review of laboratory results Abnormal [facility] Osmolality Calc [Osmolality] 304 [facility] Potassium [Moles/Vol] 4.2 mmol/L 3.5 - 5.0 mmol/L [facility] Sodium [Moles/Vol] 139 mmol/L 135 - 145 mmol/L [facility] Urea nitrogen [Mass/Vol] 41 mg/dL High 7 - 25 mg/dL [facility] Urea nitrogen/Creatinine [Mass ratio] 14 mg/mg [facility] MAGNESIUMon 05-18-2022 Magnesium [Mass/Vol] 2.2 mg/dL 1.6 - 2 .6 mg/dL [facility] Interpretation and review of laboratory results Normal [facility] Magnesium [Mass/Vol] 1.7 mg/dL 1.6 - 2 .6 mg/dL [facility] No Panel Informationon 05-18 Interpretation and review of laboratory results Abnormal [facility] Interpretation and review of laboratory results Normal [facility] PHOSPHATE, INORGANICon 05-18 Phosphate [Mass/Vol] 2.0 mg/dL Low 2.2 - 4 .6 mg/dL [facility] Interpretation and review of laboratory results Normal [facility] Phosphate [Mass/Vol] 2.8 mg/dL 2.2 - 4 .6 mg/dL [facility] PT,INR,PTTon 05-18-2022 aPTT Coag (PPP) [Time] 31.0 s [facility] INR Coag (Bld) [Relative time] 1.1 {INR} [facility] Interpretation and review of laboratory results Abnormal [facility] PT Coag (PPP) [Time] 14.4 s High [facility] URINE CULTUREOrdered By: Sylvia Campos on 05-18-2022 Bacteria identified Cx Nom (Unsp spec) No Growth [facility] CBC,PLATELETSon 05-17-2022 Erythrocyte distribution width (RBC) [Ratio] 12.8 % 10.9 - 14.3 % [facility] Hematocrit (Bld) [Volume fraction] 42.8 % 39.6 - 48.8 % [facility] Hemoglobin (Bld) [Mass/Vol] 13.3 g/dL Low 13.4 - 16.8 g/dL [facility] Interpretation and review of laboratory results Abnormal [facility] MCH (RBC) [Entitic mass] 28.9 pg 26.1 - 33.3 pg [facility] MCHC (RBC) [Mass/Vol] 31.1 g/dL Low 31.9 - 36.5 g/dL [facility] MCV (RBC) [Entitic vol] 92.8 fL 79.0 - 94.5 fL [facility] Platelet mean volume (Bld) [Entitic vol] 10.3 fL 8.7 - 12.3 fL [facility] Platelets (Bld) [#/Vol] 188 10*3/uL 146 - 337 K/uL [facility] RBC (Bld) [#/Vol] 4.61 10*6/uL [facility] WBC (Bld) [#/Vol] 16.61 10*3/uL High 3.73 - 10 .10 K/uL [facility] CHEM 7 (LYTES,BUN,CREA,GLUC) Ordered By: Kaylah Mc on 05-17-2022 Anion gap [Moles/Vol] 15 mmol/L 7 - 17 mmol/L [facility] Chloride [Moles/Vol] 103 mmol/L 98 - 10 8 mmol/L [facility] CO2 [Moles/Vol] 23 mmol/L 21 - 31 mmol/L [facility] Creatinine [Mass/Vol] 5.95 mg/dL High 0.70 - 1.30 mg/dL [facility] GFR/1.73 sq M.predicted CKD-EPI (S/P/Bld) [Vol rate/Area] 11 Low >=60 mL/min/1.73m 2 [facility] Comment on above: Reported eGFR is bas ed on the CKD-EPI 2020 equation using creatinine, age, and sex. Glucose [Mass/Vol] 165 mg/dL High 70 - 99 mg/dL [facility] Interpretation and review of laboratory results Abnormal [facility] Osmolality Calc [Osmolality] 305 [facility] Potassium [Moles/Vol] 4.6 mmol/L 3.5 - 5.0 mmol/L [facility] Sodium [Moles/Vol] 136 mmol/L 135 - 145 mmol/L [facility] Urea nitrogen [Mass/Vol] 52 mg/dL High 7 - 25 mg/dL [facility] Urea nitrogen/Creatinine [Mass ratio] 9 mg/mg [facility] CHEM 7 (LYTES,BUN,CREA,GLUC) Ordered By: Kehinde Gutierrez on 05-17-2022 Anion gap [Moles/Vol] 24 mmol/L High 7 - 17 mmol/L [facility] Chloride [Moles/Vol] 100 mmol/L 98 - 10 8 mmol/L [facility] CO2 [Moles/Vol] 16 mmol/L Low 21 - 31 mmol/L [facility] Creatinine [Mass/Vol] 8.08 mg/dL High 0.70 - 1.30 mg/dL [facility] GFR/1.73 sq M.predicted CKD-EPI (S/P/Bld) [Vol rate/Area] 7 Low >=60 mL/min/1.73m 2 [facility] Comment on above: Reported eGFR is bas ed on the CKD-EPI 2020 equation using creatinine, age, and sex. Glucose [Mass/Vol] 164 mg/dL High 70 - 99 mg/dL [facility] Interpretation and review of laboratory results Abnormal [facility] Osmolality Calc [Osmolality] 305 [facility] Potassium [Moles/Vol] 5.0 mmol/L 3.5 - 5.0 mmol/L [facility] Sodium [Moles/Vol] 135 mmol/L 135 - 145 mmol/L [facility] Urea nitrogen [Mass/Vol] 56 mg/dL High 7 - 25 mg/dL [facility] Urea nitrogen/Creatinine [Mass ratio] 7 mg/mg [facility] LAVENDER TOP TUBEon 05-17-20 [facility] MAGNESIUMon 05-17-2022 Interpretation and review of laboratory results Normal [facility] Magnesium [Mass/Vol] 1.8 mg/dL 1.6 - 2 .6 mg/dL [facility] Interpretation and review of laboratory results Normal [facility] Magnesium [Mass/Vol] 1.6 mg/dL 1.6 - 2 .6 mg/dL [facility] No Panel Informationon 05-17 [facility] PHOSPHATE, INORGANICon 05-17 Interpretation and review of laboratory results Abnormal [facility] Phosphate [Mass/Vol] 4.9 mg/dL High 2.2 - 4 .6 mg/dL [facility] PT,INR,PTTon 05-17-2022 aPTT Coag (PPP) [Time] 33.0 s [facility] INR Coag (Bld) [Relative time] 1.3 {INR} High [facility] Interpretation and review of laboratory results Abnormal [facility] PT Coag (PPP) [Time] 15.7 s High [facility] [place] [facility] Chest Viewson IMPRESSION: No acute [...] acute findings. [facility] Radiology Study observation (narrative) [facility] Portable XR Chest ViewsOrder ed By: Raheem Sanz on 05-17-2022 [facility] Work Phone: URINALYSISOrdered By: Michael patel Ma on 05-17-2022 Appearance (U) Cloudy Abnormal Clear [facility] Comment on above: Results may be inacc urate due to color interference. Clinical correlation recommended. Bacteria LM Ql (Urine sed) ABSENT ABSENT [facility] Color (U) Red Abnormal Yellow [facility] Comment on above: Results may be inacc urate due to color interference. Clinical correlation recommended. Epithelial cells.squamous LM Ql (Urine sed) ABSENT 1/hpf = 1+, 2-5/hpf = 2+, 0/hpf = 0+, ABSENT [facility] Glucose Test strip (U) [Mass/Vol] Negative Negative [facility] Comment on above: Results may be inacc urate due to color interference. Clinical correlation recommended. Interpretation and review of laboratory results Abnormal [facility] Ketones (U) [Mass/Vol] Trace Abnormal Negative [facility] Comment on above: Results may be inacc urate due to color interference. Clinical correlation recommended. Leukocyte esterase Test strip Ql (U) Large Abnormal Negative [facility] Comment on above: Results may be inacc urate due to color interference. Clinical correlation recommended. Nitrite Ql (U) Negative Negative [facility] Comment on above: Results may be inacc urate due to color interference. Clinical correlation recommended. pH (U) 5.0 [pH] 5.0 - 7.0 [facility] Comment on above: Results may be inacc urate due to color interference. Clinical correlation recommended. Protein (U) [Mass/Vol] mg/dL Abnormal Negative [facility] Comment on above: Results may be inacc urate due to color interference. Clinical correlation recommended. RBC (U) [#/Vol] Large Abnormal Negative [facility] Comment on above: Results may be inacc urate due to color interference. Clinical correlation recommended. RBC LM.HPF (Urine sed) [#/Area] /[HPF] Abnormal 0 - 2 /HPF [facility] Specific gravity (U) [Rel density] 1.016 [facility] Comment on above: Results may be inacc urate due to color interference. Clinical correlation recommended. Urobilinogen (U) [Mass/Vol] 0.2 E.U./dL 0.2 E.U/dL, 1.0 E.U/dL [facility] Comment on above: Results may be inacc urate due to color interference. Clinical correlation recommended. WBC LM.HPF (Urine sed) [#/Area] /[HPF] Abnormal 0 - 5 /HPF [facility] URINE CULTUREOrdered By: Tyler Tiwari on 05-17-2022 Bacteria identified Cx Nom (Unsp spec) No Growth [facility] CBC,PLATELETSon 05-16-2022 Erythrocyte distribution width (RBC) [Ratio] 12.9 % 10.9 - 14.3 % [facility] Hematocrit (Bld) [Volume fraction] 46.5 % 39.6 - 48.8 % [facility] Hemoglobin (Bld) [Mass/Vol] 14.7 g/dL 13.4 - 16.8 g/dL [facility] Interpretation and review of laboratory results Abnormal [facility] MCH (RBC) [Entitic mass] 28.3 pg 26.1 - 33.3 pg [facility] MCHC (RBC) [Mass/Vol] 31.6 g/dL Low 31.9 - 36.5 g/dL [facility] MCV (RBC) [Entitic vol] 89.6 fL 79.0 - 94.5 fL [facility] Platelet mean volume (Bld) [Entitic vol] 10.3 fL 8.7 - 12.3 fL [facility] Platelets (Bld) [#/Vol] 188 10*3/uL 146 - 337 K/uL [facility] RBC (Bld) [#/Vol] 5.19 10*6/uL [facility] WBC (Bld) [#/Vol] 12.55 10*3/uL High 3.73 - 10 .10 K/uL [facility] CHEM 7 (LYTES,BUN,CREA,GLUC) Ordered By: Alma Pena on 05-16-2022 Anion gap [Moles/Vol] 14 mmol/L 7 - 17 mmol/L [facility] Chloride [Moles/Vol] 103 mmol/L 98 - 10 8 mmol/L [facility] CO2 [Moles/Vol] 22 mmol/L 21 - 31 mmol/L [facility] Creatinine [Mass/Vol] 6.09 mg/dL High 0.70 - 1.30 mg/dL [facility] GFR/1.73 sq M.predicted CKD-EPI (S/P/Bld) [Vol rate/Area] 10 Low >=60 mL/min/1.73m 2 [facility] Comment on above: Reported eGFR is bas ed on the CKD-EPI 2021 equation using creatinine, age, and sex. Glucose [Mass/Vol] 134 mg/dL High 70 - 99 mg/dL [facility] Interpretation and review of laboratory results Abnormal [facility] Osmolality Calc [Osmolality] 298 [facility] [place] Potassium [Moles/Vol] 4.9 mmol/L 3.5 - 5.0 mmol/L [facility] Sodium [Moles/Vol] 134 mmol/L Low 135 - 145 mmol/L [facility] Comment on above: Results inconsistent with previous results Urea nitrogen [Mass/Vol] 49 mg/dL High 7 - 25 mg/dL [facility] Urea nitrogen/Creatinine [Mass ratio] 8 mg/mg [facility] CHEM 7 (LYTES,BUN,CREA,GLUC) on 05-16-2022 Anion gap [Moles/Vol] 17 mmol/L 7 - 17 mmol/L [facility] Chloride [Moles/Vol] 106 mmol/L 98 - 10 8 mmol/L [facility] CO2 [Moles/Vol] 22 mmol/L 21 - 31 mmol/L [facility] Creatinine [Mass/Vol] 5.23 mg/dL High 0.70 - 1.30 mg/dL [facility] GFR/1.73 sq M.predicted CKD-EPI (S/P/Bld) [Vol rate/Area] 13 Low >=60 mL/min/1.73m 2 [facility] Comment on above: Reported eGFR is bas ed on the CKD-EPI 1 equation using creatinine, age, and sex. Glucose [Mass/Vol] 116 mg/dL High 70 - 99 mg/dL [facility] Interpretation and review of laboratory results Abnormal [facility] Osmolality Calc [Osmolality] 305 [facility] [place] Potassium [Moles/Vol] 4.6 mmol/L 3.5 - 5.0 mmol/L [facility] Sodium [Moles/Vol] 140 mmol/L 135 - 145 mmol/L [facility] Urea nitrogen [Mass/Vol] 42 mg/dL High 7 - 25 mg/dL [facility] Urea nitrogen/Creatinine [Mass ratio] 8 mg/mg [facility] EXTRA MICROon 05-16-2022 [facility] LT BLUE TOP TUBEon [facility] LYTES (NA, K, CL) - URINE - RANDOMon 05-16-2022 Chloride (24H U) [Moles/Vol] 68 mmol/L [facility] Potassium (24H U) [Moles/Vol] 36.7 mmol/L [facility] Sodium (24H U) [Moles/Vol] 55 mmol/L [facility] The reference range has not been established for random urine specimens. The test result should be integrated into the clinical context for interpretation. [facility] MAGNESIUMon 05-16-2022 Interpretation and review of laboratory results Normal [facility] Magnesium [Mass/Vol] 1.7 mg/dL 1.6 - 2 .6 mg/dL [facility] NOVEL CORONAVIRUS PCROrdered By: Edson Candelario on 05-16-2022 SARS-CoV-2 (COVID-19) RNA ESTELITA+probe Ql (Unsp spec) Not detected NOT DETECTED [facility] Comment on above: [facility] [...] authorized laboratories. [facility] No Panel Informationon 05-16 [facility] OSMOLALITY, URINEon 05-16-20 Interpretation and review of laboratory results Normal [facility] Osmolality (U) [Osmolality] 320 mosm/kg [facility] The reference range has not been established for random urine specimens. The test result should be integrated into the clinical context for interpretation. [facility] PROCALCITONINon 05-16-2022 Interpretation and review of laboratory results Normal [facility] Procalcitonin [Mass/Vol] 0.18 ng/mL <0.50 [facility] Comment on above: Procalcitonin is an FDA-approved assay to help manage antibiotic treatment in patients with sepsis/septic shock and lower respiratory tract infections. Specifically, trending procalcitonin in these situations can be used to reduce the duration of antibiotics. Please refer to the Procalcitonin Guide on the [employer]ward[employer] Webpage for more guidance on how to use and trend procalcitonin in various clinical settings. [email or web address] [email or web address]&action=[email or web address] Two common cutoffs associated with bacterial infections are as follows. Respiratory tract infections: >0.25 ng/mL Sepsis/septic shock: >0.5 ng/mL Procalcitonin should not be used alone as a diagnostic tool, however. All procalcitonin results should be interpreted in association with the patients clinical condition and all laboratory findings. [facility] PT,INR,PTTon 05-16-2022 aPTT Coag (PPP) [Time] 30.3 s [facility] INR Coag (Bld) [Relative time] 1.1 {INR} [facility] Interpretation and review of laboratory results Normal [facility] PT Coag (PPP) [Time] 14.1 s [facility] SARS-CoV-2 (COVID-19) RNA NA A+probe Ql (Unsp spec)Ordered By: Edson Candelario on 05-16-2022 Interpretation and review of laboratory results Normal [facility] [place] TACROLIMUS LEVEL, TROUGH ([place] E DRUG LEVEL)Ordered By: Mariama Nick on 05-16-2022 Interpretation and review of laboratory results Normal [facility] [place] Tacrolimus (Bld) [Mass/Vol] 4.1 ng/mL Bone Marrow Transplant: 4.0-12.0, Therapeutic: 5.0-15.0 [facility] [place] Method performed is a chemiluminescent microparticle immunoasssay on the [employer] i2000. The range is based on experience at [facility] and users should be aware that target concentrations vary widely depending on concomitant therapy, time post-transplant, and desired degree of immunosuppression. [facility] URINE PROTEIN/CREA RATIO, RA Baljit 05-16-2022 Creatinine (24H U) [Mass/Vol] 59.82 mg/dL [facility] [place] Protein Unsp time (U) [Mass/Vol] 111 mg/dL [facility] Protein/Creatinine (U) [Mass ratio] 1.856 mg/g [facility] [place] US for transplanted kidney l imitedon 05-16-2022 [...] transplant kidney. [facility] Radiology Study observation (narrative) [facility] US for transplanted kidney l imitedOrdered By: Rosendo Matute on 05-16-2022 [facility] Work Phone: CBC AND ELECTRONIC DIFFon Basophils (Bld) [#/Vol] 10*3/uL 0.00 - 0.09 K/uL [facility] Basophils/100 WBC (Bld) 0.2 % [facility] Differential cell count method Nom (Bld) Electronic Differential [facility] Eosinophils (Bld) [#/Vol] 10*3/uL 0.00 - 0.48 K/uL [facility] Eosinophils/100 WBC (Bld) 0.0 % [facility] Erythrocyte distribution width (RBC) [Ratio] 12.8 % 10.9 - 14.3 % [facility] Hematocrit (Bld) [Volume fraction] 46.0 % 39.6 - 48.8 % [facility] Hemoglobin (Bld) [Mass/Vol] 14.6 g/dL 13.4 - 16.8 g/dL [facility] Immature granulocytes (Bld) [#/Vol] 0.07 10*3/uL <=0.08 [facility] Immature granulocytes/100 WBC (Bld) 0.4 % [facility] Interpretation and review of laboratory results Abnormal [facility] Lymphocytes (Bld) [#/Vol] 1.49 10*3/uL 0.83 - 3.57 K/uL [facility] Lymphocytes/100 WBC (Bld) 9.4 % [facility] MCH (RBC) [Entitic mass] 28.2 pg 26.1 - 33.3 pg [facility] MCHC (RBC) [Mass/Vol] 31.7 g/dL Low 31.9 - 36.5 g/dL [facility] MCV (RBC) [Entitic vol] 89.0 fL 79.0 - 94.5 fL [facility] Monocytes (Bld) [#/Vol] 1.45 10*3/uL High 0.24 - 0.93 K/uL [facility] Monocytes/100 WBC (Bld) 9.2 % [facility] Neutrophils (Bld) [#/Vol] 12.77 10*3/uL High 1.57 - 6.19 K/uL [facility] Nucleated RBC/100 WBC (Bld) [Ratio] 0.0 % <=0.2 /100 WBC [facility] Platelet mean volume (Bld) [Entitic vol] 9.9 fL 8.7 - 12.3 fL [facility] Platelets (Bld) [#/Vol] 250 10*3/uL 146 - 337 K/uL [facility] RBC (Bld) [#/Vol] 5.17 10*6/uL [facility] Segmented neutrophils/100 WBC (Bld) 80.8 % [facility] WBC (Bld) [#/Vol] 15.81 10*3/uL High 3.73 - 10 .10 K/uL [facility] CBC AUTO DIFFon 05-15-2022 BASO # 0.0 103/ul Normal 0.0-0.1 [facility] Comment on above: Performed By: #### C BC #### [facility] [address] [place] [address] Dr. Dwight Waters Basophils/100 WBC (Bld) 0.3 % Normal 0.2-2.0 [facility] Comment on above: Performed By: #### C BC #### [facility] [address] [place] [address] Dr. Dwight Waters EO # 0.1 103/ul Normal 0.0-0.7 [facility] Comment on above: Performed By: #### C BC #### [facility] [address] [place] [address] Dr. Dwight Waters Eosinophils/100 WBC (Bld) 0.8 % Critically low 0.9-7.0 [facility] Comment on above: Performed By: #### C BC #### [facility] [address] [place] [address] Dr. Dwight Waters Erythrocyte distribution width (RBC) [Ratio] 12.7 % Normal 11.0-15.0 [facility] Comment on above: Performed By: #### C BC #### [facility] [address] [place] [address] Dr. Dwight Waters Hematocrit (Bld) [Volume fraction] 43.5 % Normal 42.0-54.0 [facility] Comment on above: Performed By: #### C BC #### [facility] [address] [place] [address] Dr. Dwight Waters Hemoglobin (Bld) [Mass/Vol] 14.4 g/dL Normal 14.0-18.0 [facility] Comment on above: Performed By: #### C BC #### [facility] [address] [place] [address] Dr. Dwight Waters IG # 0.02 10e3/ul Normal 0.00-0.03 [facility] Comment on above: Performed By: #### C BC #### [facility] [address] [place] [address] Dr. Dwight Waters IG % 0.2 % Normal 0.0-0.5 [facility] Comment on above: Performed By: #### C BC #### [facility] [address] [place] [address] Dr. Dwight Waters LYMPH # 1.5 103/ul Normal 1.2-3.8 [facility] Comment on above: Performed By: #### C BC #### [facility] [address] [place] [address] Dr. Dwight Waters Lymphocytes/100 WBC (Bld) 12.5 % Critically low 20.5-60.0 [facility] Comment on above: Performed By: #### C BC #### [facility] [address] [place] [address] Dr. Dwight Waters MANUAL DIFF REQ NO Normal [facility] Comment on above: Performed By: #### C BC #### [facility] [address] [place] [address] Dr. Dwight Waters MCH (RBC) [Entitic mass] 28.6 pg Normal 25.9-34.0 [facility] Comment on above: Performed By: #### C BC #### [facility] [address] [place] [address] Dr. Dwight Waters MCHC (RBC) [Mass/Vol] 33.1 g/dL Normal 29.9-35.2 [facility] Comment on above: Performed By: #### C BC #### [facility] [address] [place] [address] Dr. Dwight Waters MCV (RBC) [Entitic vol] 86.3 fL Normal 80.0-94.0 [facility] Comment on above: Performed By: #### C BC #### [facility] [address] [place] [address] Dr. Dwight Waters MONO # 1.0 103/ul Critically high 0.3-0.8 [facility] Comment on above: Performed By: #### C BC #### [facility] [address] [place] [address] Dr. Dwight Waters Monocytes/100 WBC (Bld) 8.2 % Normal 1.7-12.0 [facility] Comment on above: Performed By: #### C BC #### [facility] [address] [place] [address] Dr. Dwight Waters NEUT # 9.1 103/ul Critically high 1.4-6.5 [facility] Comment on above: Performed By: #### C BC #### [facility] [address] [place] [address] Dr. Dwight Waters Neutrophils/100 WBC (Bld) 78.0 % Critically high 43.0-75.0 [facility] Comment on above: Performed By: #### C BC #### [facility] [address] [place] [address] Dr. Dwight Waters Platelet mean volume (Bld) [Entitic vol] 9.8 fL Normal 9.5-13.5 [facility] Comment on above: Performed By: #### C BC #### [facility] [address] [place] [address] Dr. Dwight Waters PLT 251 103/ul Normal 150-450 [facility] Comment on above: Performed By: #### C BC #### [facility] [address] [place] [address] Dr. Dwight Waters RBC 5.04 106/ul Normal 4.70-6.10 [facility] Comment on above: Performed By: #### C BC #### [facility] [address] [place] [address] Dr. Dwight Waters WBC 11.6 103/ul Critically high 4.0-11.0 [facility] Comment on above: Performed By: #### C BC #### [facility] [address] [place] [address] Dr. Dwight Waters CHEM 6 (LYTES, BUN CREA)on 0 05-15-2022 Anion gap [Moles/Vol] 12 mmol/L 7 - 17 mmol/L [facility] Chloride [Moles/Vol] 105 mmol/L 98 - 10 8 mmol/L [facility] CO2 [Moles/Vol] 26 mmol/L 21 - 31 mmol/L [facility] Creatinine [Mass/Vol] 2.85 mg/dL High 0.70 - 1.30 mg/dL [facility] GFR/1.73 sq M.predicted CKD-EPI (S/P/Bld) [Vol rate/Area] 26 Low >=60 mL/min/1.73m 2 [facility] Comment on above: Reported eGFR is bas ed on the CKD-EPI 2020 equation using creatinine, age, and sex. Potassium [Moles/Vol] 4.6 mmol/L 3.5 - 5.0 mmol/L [facility] Sodium [Moles/Vol] 138 mmol/L 135 - 145 mmol/L [facility] Urea nitrogen [Mass/Vol] 32 mg/dL High 7 - 25 mg/dL [facility] Urea nitrogen/Creatinine [Mass ratio] 11 mg/mg [facility] CT ABD/PELVIS WO CONon [...] transplanted kidney with moderate right-sided hydronephrosis. Atrophic ruby kidneys with moderate right-sided hydronephrosis. Multiple nonobstructive [...] transplanted kidney with moderate right-sided hydronephrosis. Atrophic ruby kidneys with moderate right-sided hydronephrosis. Multiple nonobstructive right renal calculi measuring up to 8 mm. FOLLOW-UP: Follow-up as clinically indicated. Electronically authenticated by: LYNDSAY JEAN Date: 2022-05-15 05:04 Normal [facility] Covid-19 PCR (CVDTBH)on 04-30 SARS-CoV-2 (COVID-19) RNA ESTELITA+probe Ql (Unsp spec) Not detected Normal NOT DETECTED [facility] Comment on above: Result Comment: When [...] for this test is supported by the [employer] Supervisor of Health and Human Service's declaration that [...] used). Performed By: #### U RTPCR #### [facility] [address] [place] [address] Dr. Dwight Waters GLUCOSEon 05-15-2022 Glucose [Mass/Vol] 141 mg/dL High 70 - 99 mg/dL [facility] GOLD TOP TUBEon 05-15-2022 [facility] HEPATIC FUNCTION PANELon Albumin [Mass/Vol] 4.3 g/dL 3.5 - 5.0 g/dL [facility] ALP [Catalytic activity/Vol] 85 U/L 32 - 126 U/L [facility] ALT [Catalytic activity/Vol] 13 U/L 10 - 52 U/L [facility] AST [Catalytic activity/Vol] 15 U/L 10 - 39 U/L [facility] Bilirubin [Mass/Vol] 0.8 mg/dL <1.5 [facility] Bilirubin.direct [Mass/Vol] 0.2 mg/dL <0.3 [facility] Interpretation and review of laboratory results Normal [facility] Protein [Mass/Vol] 7.3 g/dL 6.4 - 8.3 g/dL [facility] LIPASEon 05-15-2022 Lipase [Catalytic activity/Vol] 8 U/L Low 11 - 82 U/L [facility] No Panel Informationon 05-15 Interpretation and review of laboratory results Abnormal [facility] PROF 14(COMP METB)on 022 Albumin [Mass/Vol] 3.8 g/dL Normal 3.4-5.0 [facility] Comment on above: Performed By: #### U RTPCR #### [facility] [address] [place] [address] Dr. Dwight Waters Albumin/Globulin [Mass ratio] 1.1 {ratio} Normal [facility] Comment on above: Performed By: #### U RTPCR #### [facility] [address] [place] [address] Dr. Dwight Waters ALP [Catalytic activity/Vol] 92 U/L Normal 46-116 [facility] Comment on above: Performed By: #### U RTPCR #### [facility] [address] [place] [address] Dr. Dwight Waters ALT [Catalytic activity/Vol] 25 U/L Normal 16-63 [facility] Comment on above: Performed By: #### U RTPCR #### [facility] [address] [place] [address] Dr. Dwight Waters Anion gap [Moles/Vol] 14.6 mmol/L Normal [facility] Comment on above: Performed By: #### U RTPCR #### [facility] [address] [place] [address] Dr. Dwight Waters AST [Catalytic activity/Vol] 17 U/L Normal 15-37 [facility] Comment on above: Performed By: #### U RTPCR #### [facility] [address] [place] [address] Dr. Dwight Waters Bilirubin [Mass/Vol] 0.6 mg/dL Normal 0.2-1.0 [facility] Comment on above: Performed By: #### U RTPCR #### [facility] [address] [address] [address] Dwight Waters Calcium [Mass/Vol] 9.9 mg/dL Normal 8.5-10.1 [facility] Comment on above: Performed By: #### U RTPCR #### [facility] [address] [address] [address] Dwight Waters Chloride [Moles/Vol] 106 mmol/L Normal 98-107 [facility] Comment on above: Performed By: #### U RTPCR #### [facility] [address] [address] [address] Dwight Waters CO2 [Moles/Vol] 24.2 mmol/L Normal 21.0-32.0 [facility] Comment on above: Performed By: #### U RTPCR #### [facility] [address] [address] [address] Dwight Waters Creatinine [Mass/Vol] 1.58 mg/dL Critically high 0.70-1.30 [facility] Comment on above: Performed By: #### U RTPCR #### [facility] [address] [address] [address] Dwight Waters EGFR-AF GRENADIAN 56 mL/min/1.73m2 Critically low >=60 [facility] Comment on above: Performed By: #### U RTPCR #### [facility] [address] [address] [address] Dwight Waters EGFR-NON AF GRENADIAN 46 mL/min/1.73m2 Critically low >=60 [facility] Comment on above: Performed By: #### U RTPCR #### [facility] [address] [address] [address] Dwight Waters Globulin (S) [Mass/Vol] 3.5 g/dL Normal [facility] Comment on above: Performed By: #### U RTPCR #### [facility] [address] [address] [address] Dwight Waters Glucose [Mass/Vol] 162 mg/dL Critically high 74-106 [facility] Comment on above: Performed By: #### U RTPCR #### [facility] [address] [address] [address] Dwight Waters Potassium [Moles/Vol] 3.8 mmol/L Normal 3.5-5.1 [facility] Comment on above: Performed By: #### U RTPCR #### [facility] [address] [address] [address] Dwight Waters Protein [Mass/Vol] 7.3 g/dL Normal 6.4-8.2 [facility] Comment on above: Performed By: #### U RTPCR #### [facility] [address] [address] [address] Dwight Waters Sodium [Moles/Vol] 141 mmol/L Normal 136-145 [facility] Comment on above: Performed By: #### U RTPCR #### [facility] [address] [address] [address] Dwight Waters Urea nitrogen [Mass/Vol] 22.0 mg/dL Critically high 7.0-18.0 [facility] Comment on above: Performed By: #### U RTPCR #### [facility] [address] [address] [address] Dwight Waters Urea nitrogen/Creatinine [Mass ratio] 13.9 mg/mg Normal [facility] Comment on above: Performed By: #### U RTPCR #### [facility] [address] [address] [address] Dwight Waters Portable XR Chest Viewson [...] cardiopulmonary disease [facility] Radiology Study observation (narrative) [facility] Portable XR Chest ViewsOrder ed By: Vladislav Omer on 05-15-2022 [facility] URINE DIPSTICK; REFLEX MICRO SCOPY; REFLEX CULTURE PERFORMABLEon 05-15-2022 Appearance (U) Clear Clear [facility] Color (U) Yellow Yellow [facility] Glucose Test strip (U) [Mass/Vol] 100 mg/dL Abnormal Negative [facility] Interpretation and review of laboratory results Abnormal [facility] Ketones (U) [Mass/Vol] Negative Negative [facility] Leukocyte esterase Test strip Ql (U) Large Abnormal Negative [facility] Nitrite Ql (U) Negative Negative [facility] pH (U) 6.0 [pH] 5.0 - 7.0 [facility] Protein (U) [Mass/Vol] 100 mg/dL Abnormal Negative [facility] RBC (U) [#/Vol] Large Abnormal Negative [facility] Specific gravity (U) [Rel density] 1.010 [facility] Urobilinogen (U) [Mass/Vol] 0.2 E.U./dL 0.2 E.U/dL, 1.0 E.U/dL [facility] URINE MICROSCOPIC WITH REFLE X TO CULTUREOrdered By: Rey Bro on 05-15-2022 Bacteria LM Ql (Urine sed) ABSENT ABSENT [facility] Epithelial cells.squamous LM Ql (Urine sed) ABSENT 1/hpf = 1+, 2-5/hpf = 2+, 0/hpf = 0+, ABSENT [facility] Interpretation and review of laboratory results Abnormal [facility] RBC LM.HPF (Urine sed) [#/Area] /[HPF] Abnormal 0 - 2 /HPF [facility] WBC LM.HPF (Urine sed) [#/Area] 10-20 [facility]normal 0 - 5 [facility] CT ABD/PELVIS WO CON Begin Addendum #[address] Lund 3:25 PM EST 05/11/2022. Begin Addendum #2 IMPRESSION below should also contain the followin. 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 The ruby kidneys are progressively atrophic bilaterally compared to [...] of 06/14/2020 are no longer present. The ruby distal right ureter is decompressed beyond this [...] with surgical history for renal graft and ruby right urinary drainage, as a discrete ureteroneocystostomy is not identified, and the graft may be draining via a ureteroureterostomy. Urology consultation recommended. 3. The ruby kidneys are bilaterally atrophic, with right renal sinus calcifications consistent with nonobstructing right ruby renal calculi up to 6 mm. Normal [facility] CBC AUTO DIFFon 05-11-2022 BASO # 0.1 103/ul Normal 0.0-0.1 [facility] Comment on above: Performed By: #### U RTPCR #### [facility] [address] [place], [place] [address] Dr. Dwight Waters Basophils/100 WBC (Bld) 0.8 % Normal 0.2-2.0 [facility] Comment on above: Performed By: #### U RTPCR #### [facility] [address] [place], [place] [address] Dr. Dwight Waters EO # 0.2 103/ul Normal 0.0-0.7 [facility] Comment on above: Performed By: #### U RTPCR #### [facility] [address] [place] [address] Dr. Dwight Waters Eosinophils/100 WBC (Bld) 2.5 % Normal 0.9-7.0 [facility] Comment on above: Performed By: #### U RTPCR #### [facility] [address] [place] [address] Dr. Dwight Waters Erythrocyte distribution width (RBC) [Ratio] 12.5 % Normal 11.0-15.0 [facility] Comment on above: Performed By: #### U RTPCR #### [facility] [address] [place] [address] Dr. Dwight Waters Hematocrit (Bld) [Volume fraction] 48.3 % Normal 42.0-54.0 [facility] Comment on above: Performed By: #### U RTPCR #### [facility] [address] [place] [address] Dr. Dwight Waters Hemoglobin (Bld) [Mass/Vol] 15.3 g/dL Normal 14.0-18.0 [facility] Comment on above: Performed By: #### U RTPCR #### [facility] [address] [place] [address] Dr. Dwight Waters IG # 0.01 10e3/ul Normal 0.00-0.03 [facility] Comment on above: Performed By: #### U RTPCR #### [facility] [address] [place] [address] Dr. Dwight Waters IG % 0.2 % Normal 0.0-0.5 [facility] Comment on above: Performed By: #### U RTPCR #### [facility] [address] [place] [address] Dr. Dwight Waters LYMPH # 1.9 103/ul Normal 1.2-3.8 [facility] Comment on above: Performed By: #### U RTPCR #### [facility] [address] [place] [address] Dr. Dwight Waters Lymphocytes/100 WBC (Bld) 29.8 % Normal 20.5-60.0 [facility] Comment on above: Performed By: #### U RTPCR #### [facility] [address] [place] [address] Dr. Dwight Waters MANUAL DIFF REQ NO Normal [facility] Comment on above: Performed By: #### U RTPCR #### [facility] [address] [place] [address] Dr. Dwight Waters MCH (RBC) [Entitic mass] 28.2 pg Normal 25.9-34.0 [facility] Comment on above: Performed By: #### U RTPCR #### [facility] [address] [place] [address] Dr. Dwight Waters MCHC (RBC) [Mass/Vol] 31.7 g/dL Normal 29.9-35.2 [facility] Comment on above: Performed By: #### U RTPCR #### [facility] [address] [place] [address] Dr. Dwight Waters MCV (RBC) [Entitic vol] 89.1 fL Normal 80.0-94.0 [facility] Comment on above: Performed By: #### U RTPCR #### [facility] [address] [place] [address] Dr. Dwight Waters MONO # 0.6 103/ul Normal 0.3-0.8 [facility] Comment on above: Performed By: #### U RTPCR #### [facility] [address] [place] [address] Dr. Dwight Waters Monocytes/100 WBC (Bld) 9.0 % Normal 1.7-12.0 [facility] Comment on above: Performed By: #### U RTPCR #### [facility] [address] [place] [address] Dr. Dwight Waters NEUT # 3.6 103/ul Normal 1.4-6.5 [facility] Comment on above: Performed By: #### U RTPCR #### [facility] [address] [place] [address] Dr. Dwight Waters Neutrophils/100 WBC (Bld) 57.7 % Normal 43.0-75.0 [facility] Comment on above: Performed By: #### U RTPCR #### [facility] [address] [address] [address] Dwight Waters Platelet mean volume (Bld) [Entitic vol] 9.9 fL Normal 9.5-13.5 [facility] Comment on above: Performed By: #### U RTPCR #### [facility] [address] [address] [address] Dwight Waters PLT 249 103/ul Normal 150-450 [facility] Comment on above: Performed By: #### U RTPCR #### [facility] [address] [place] [address] Dr. Dwight Waters RBC 5.42 106/ul Normal 4.70-6.10 [facility] Comment on above: Performed By: #### U RTPCR #### [facility] [address] [place] [address] Dr. Dwight Waters WBC 6.3 103/ul Normal 4.0-11.0 [facility] Comment on above: Performed By: #### U RTPCR #### [facility] [address] [place] [address] Dr. Dwight Waters ER URINE PROFILEon 2 Bilirubin Ql (U) Unable to perform te sting due to color interference. Abnormal NEGATIVE [facility] Comment on above: Performed By: #### U RTPCR #### [facility] [address] [place] [address] Dr. Dwight Waters Clarity (U) TURBID Abnormal CLEAR [facility] Comment on above: Performed By: #### U RTPCR #### [facility] [address] [place] [address] Dr. Dwight Waters Color (U) RED Abnormal YELLOW [facility] Comment on above: Performed By: #### U RTPCR #### [facility] [address] [place] [address] Dr. Dwight Waters ERUAHD A micrscopic examina tion will be performed if indicated. Normal [facility] Comment on above: Performed By: #### U RTPCR #### [facility] [address] [place] [address] Dr. Dwight Waters Glucose Ql (U) Unable to perform te sting due to color interference. Abnormal NEGATIVE [facility] Comment on above: Performed By: #### U RTPCR #### [facility] [address] [place] [address] Dr. Dwight Waters Hemoglobin Ql (U) Unable to perform te sting due to color interference. Abnormal NEGATIVE [facility] Comment on above: Performed By: #### U RTPCR #### [facility] [address] [place] [address] Dr. Dwight Waters Ketones Ql (U) Unable to perform te sting due to color interference. Abnormal NEGATIVE [facility] Comment on above: Performed By: #### U RTPCR #### [facility] [address] [place] [address] Dr. Dwight Waters LEUKOCYTES Unable to perform te sting due to color interference. Abnormal NEGATIVE [facility] Comment on above: Performed By: #### U RTPCR #### [facility] [address] [place] [address] Dr. Dwight Waters Nitrite Ql (U) Unable to perform te sting due to color interference. Abnormal NEGATIVE [facility] Comment on above: Performed By: #### U RTPCR #### [facility] [address] [place] [address] Dr. Dwight Waters pH (U) 6.5 [pH] Normal 5-9 [facility] Comment on above: Performed By: #### U RTPCR #### [facility] [address] [place] [address] Dr. Dwight Waters SPEC GRAVITY 1.020 Normal 1.005-<=1.02 5 [facility] Comment on above: Performed By: #### U RTPCR #### [facility] [address] [place] [address] Dr. Dwight Waters UA PROTEIN Unable to perform te sting due to color interference. Normal NEGATIVE/ TRACE [facility] Comment on above: Performed By: #### U RTPCR #### [facility] [address] [place] [address] Dr. Dwight Waters UR MICRO IND INDICATED Normal [facility] Comment on above: Performed By: #### U RTPCR #### [facility] [address] [address] [address] Dwight Waters UROBILINOGEN Unable to perform te sting due to color interference. Normal 0.2 - 1.0 [facility] Comment on above: Performed By: #### U RTPCR #### [facility] [address] [place] [address] Dr. Dwight Waters PROF 14(COMP METB)on 022 Albumin [Mass/Vol] 3.8 g/dL Normal 3.4-5.0 [facility] Comment on above: Performed By: #### C MP #### [facility] [address] [place] [address] Dr. Dwight Waters Albumin/Globulin [Mass ratio] 1.1 {ratio} Normal [facility] Comment on above: Performed By: #### C MP #### [facility] [address] [place] [address] Dr. Dwight Waters ALP [Catalytic activity/Vol] 106 U/L Normal 46-116 [facility] Comment on above: Performed By: #### C MP #### [facility] [address] [place] [address] Dr. Dwight Waters ALT [Catalytic activity/Vol] 30 U/L Normal 16-63 [facility] Comment on above: Performed By: #### C MP #### [facility] [address] [place] [address] Dr. Dwight Waters Anion gap [Moles/Vol] 11.7 mmol/L Normal [facility] Comment on above: Performed By: #### C MP #### [facility] [address] [place] [address] Dr. Dwight Waters AST [Catalytic activity/Vol] 16 U/L Normal 15-37 [facility] Comment on above: Performed By: #### C MP #### [facility] [address] [place] [address] Dr. Dwight Waters Bilirubin [Mass/Vol] 0.6 mg/dL Normal 0.2-1.0 [facility] Comment on above: Performed By: #### C MP #### [facility] [address] [address] [address] Dwight Waters Calcium [Mass/Vol] 9.1 mg/dL Normal 8.5-10.1 [facility] Comment on above: Performed By: #### C MP #### [facility] [address] [address] [address] Dwight Waters CO2 [Moles/Vol] 27.4 mmol/L Normal 21.0-32.0 [facility] Comment on above: Performed By: #### C MP #### [facility] [address] [address] [address] Dwight Waters Creatinine [Mass/Vol] 1.18 mg/dL Normal 0.70-1.30 [facility] Comment on above: Performed By: #### C MP #### [facility] [address] [address] [address] Dwight Waters EGFR-AF GRENADIAN >60 Normal >=60 [facility] Comment on above: Performed By: #### C MP #### [facility] [address] [address] [address] Dwight Waters EGFR-NON AF GRENADIAN >60 Normal >=60 [facility] Comment on above: Performed By: #### C MP #### [facility] [address] [address] [address] Dwight Waters Globulin (S) [Mass/Vol] 3.6 g/dL Normal [facility] Comment on above: Performed By: #### C MP #### [facility] [address] [address] [address] Dwight Waters Glucose [Mass/Vol] 192 mg/dL Critically high 74-106 [facility] Comment on above: Performed By: #### C MP #### [facility] [address] [place] [address] Dr. Dwight Waters Potassium [Moles/Vol] 4.1 mmol/L Normal 3.5-5.1 [facility] Comment on above: Performed By: #### C MP #### [facility] [address] [address] [address] Dwight Waters Protein [Mass/Vol] 7.4 g/dL Normal 6.4-8.2 [facility] Comment on above: Performed By: #### C MP #### [facility] [address] [address] [address] Dwight Waters Sodium [Moles/Vol] 142 mmol/L Normal 136-145 [facility] Comment on above: Performed By: #### C MP #### [facility] [address] [place] [address] Dr. Dwight Waters Urea nitrogen [Mass/Vol] 17.0 mg/dL Normal 7.0-18.0 [facility] Comment on above: Performed By: #### C MP #### [facility] [address] [place] [address] Dr. Dwight Waters Urea nitrogen/Creatinine [Mass ratio] 14.4 mg/mg Normal [facility] Comment on above: Performed By: #### C MP #### [facility] [address] [place] [address] Dr. Dwight Waters URINE MICROSCOPIC ONLYon BACTERIA NONE SEEN Normal NONE SEEN [facility] Comment on above: Performed By: #### U RTPCR #### [facility] [address] [place] [address] Dr. Dwight Waters Bacteria identified Cx Nom (U) NOT INDICATED Normal [facility] Comment on above: Performed By: #### U RTPCR #### [facility] [address] [place] [address] Dr. Dwight Waters CAST NONE SEEN Normal NONE SEEN [facility] Comment on above: Performed By: #### U RTPCR #### [facility] [address] [place] [address] Dr. Dwight Waters Crystals LM Nom (Urine sed) NONE SEEN Normal NONE SEEN [facility] Comment on above: Performed By: #### U RTPCR #### [facility] [address] [place] [address] Dr. Dwight Waters Epithelial cells LM Ql (Urine sed) RARE Normal NONE SEEN /RARE [facility] Comment on above: Performed By: #### U RTPCR #### [facility] [address] [address] [address] Dwight Waters MUCOUS NONE SEEN Normal NONE SEEN [facility] Comment on above: Performed By: #### U RTPCR #### [facility] [address] [address] [address] Dwight Waters RBC (U) [#/Vol] /uL Abnormal 0-2 [facility] Comment on above: Performed By: #### U RTPCR #### [facility] [address] [address] [address] Dwight Waters WBC NONE SEEN Normal NONE SEEN [facility] Comment on above: Performed By: #### U RTPCR #### [facility] [address] [address] [address] Dwight Waters K (Potassium)on 01-06-2020 Potassium [Moles/Vol] 4.4 mmol/L Normal 3.7-5.3 [facility] Comment on above: Performed By: #### K #### [facility] [address] [place] [address] Geneticist: Kehinde Woodward MD Potassiumon 01-06-2020 Potassium [Moles/Vol] 4.4 mmol/L 3.7 - 5.3 mmol/L [facility] Work Phone: Hemoglobin and Hematocrit, B loodon 10-24-2019 Hematocrit (Bld) [Volume fraction] 23.6 % Low 40.7 - 50.3 % [place], [place] Hemoglobin (Bld) [Mass/Vol] 7.3 g/dL Low 13 - 17 g/dL [place] Interpretation and review of laboratory results Abnormal [place] Hgb/Hcton 10-24-2019 Hematocrit (Bld) [Volume fraction] 23.6 % Low 40.7-50.3 [facility] Comment on above: Performed By: #### H H #### [facility] [address] [place] [address] Geneticist: Kehinde Woodward MD Hemoglobin (Bld) [Mass/Vol] 7.3 g/dL Low 13.0-17.0 [facility] Comment on above: Performed By: #### H H #### [facility] [address] [place] [address] Geneticist: Kehinde Woodward MD Hemoglobinon 08-27-2019 Hemoglobin (Bld) [Mass/Vol] 7.5 g/dL Low 13.0-17.0 [facility] Comment on above: Performed By: #### H GB #### [facility] [address] [place] [address] Geneticist: Kehinde Woodward MD Hemoglobin (Bld) [Mass/Vol] 7.5 g/dL Low 13 - 17 g/dL [place] Interpretation and review of laboratory results Abnormal [place] Hemoglobinon 08-08-2019 Hemoglobin (Bld) [Mass/Vol] 8.3 g/dL Low 13.0-17.0 [facility] Comment on above: Performed By: #### H GB #### [facility] [address] [place] [address] Geneticist: Kehinde Woodward MD Hemoglobin (Bld) [Mass/Vol] 8.3 g/dL Low 13 - 17 g/dL [place] Interpretation and review of laboratory results Abnormal [place] Hemoglobinon 08-04-2019 Hemoglobin (Bld) [Mass/Vol] 8.0 g/dL Low 13.0-17.0 [facility] Comment on above: Performed By: #### H GB #### [facility] [address] [place] [address] Geneticist: Kehinde Woodward MD Hemoglobin A1Con 08-03-2019 HbA1c (Bld) [Mass fraction] % Low 4.8-5.9 [facility] Comment on above: Result Comment: The ADA and AACC recommend providing the estimated average glucose result to permit better patient understanding of their HBA1c result. Performed By: #### G LYHGB #### [facility] [address] [place] [address] Geneticist: Kehinde Woodward MD Glucose [Mass/Vol] mg/dL mg/dL [place] Comment on above: The ADA and AACC rec ommend providing the estimated average glucose result to permit better patient understanding of their HBA1c result. HbA1c (Bld) [Mass fraction] % Low 4.8 - 5.9 % [place] Interpretation and review of laboratory results Abnormal [place] Hemoglobinon 08-01-2019 Hemoglobin (Bld) [Mass/Vol] 8.1 g/dL Low 13.0-17.0 [facility] Comment on above: Performed By: #### H GB #### [address] [place] [address] Geneticist: Kehinde Woodward MD Hemoglobin (Bld) [Mass/Vol] 8.1 g/dL Low 13 - 17 g/dL [place] Interpretation and review of laboratory results Abnormal [place] Hgb/Hcton 06-10-2019 Hematocrit (Bld) [Volume fraction] 24.3 % Low 40.7-50.3 [facility] Comment on above: Performed By: #### H H #### [address] [place] [address] Geneticist: Kehinde Woodward MD Hemoglobin (Bld) [Mass/Vol] 7.4 g/dL Low 13.0-17.0 [facility] Comment on above: Performed By: #### H H #### [facility] [address] [place] [address] Geneticist: Kehinde Woodward MD Hemoglobinon 06-01-2019 Hemoglobin (Bld) [Mass/Vol] 7.2 g/dL Low 13.0-17.0 [facility] Comment on above: Performed By: #### H GB #### [facility] [address] [place] [address] Geneticist: Kehinde Woodward MD K (Potassium)on 01-14-2019 Potassium [Moles/Vol] 3.6 mmol/L Low 3.7-5.3 [facility] Comment on above: Performed By: #### K #### [facility] [address] [place] [address] Geneticist: Kehinde Woodward MD Otheron 10-19-2018 IMPRESSION: 1. [...] characteristics determined by Toxicology Laboratory at [facility]. It has not been cleared [...] Amitriptyline(50), Amphetamine(250), Atenolol(500), Barbiturates(1000), Benzoylecgonine(50), Buprenorphine(50), Bupropion(25), Caffeine(87407), Chlordiazepoxide(50), Chlorpheniramine(100), Chlorpromazine(50), Citalopram(100), Clonazepam(200), Cocaine(25), Codeine(200), [...] LOUIS, QASIM TOXICOLOGY SCREEN URINE - UD [facility] 10-12-2018 Drugs identified Screen Nom (U) For Medical Purposes Only, Non-forensic, screen results are presumptive. No confirmatory testing will follow. Invalid Interpretation Shira LOUIS, QASIM Comment on above: This Liquid Chromato graphy Mass Spectrometry (LC/MS/MS) test was developed and its performance characteristics determined by Toxicology Laboratory at [facility]. It has not been cleared [...] Amitriptyline(50), Amphetamine(250), Atenolol(500), Barbiturates(200), Benzoylecgonine(50), Buprenorphine(500), Bupropion(25), Caffeine(73813), Cannabinoids(THC)(50), Chlordiazepoxide(50), Chlorpheniramine(100), Chlorpromazine(50), Citalopram(100), Clonazepam(200), Cocaine(25), [...] index (BMI) [Ratio] 29.43 kg/m2 Rebeca Gutierrez ECHOCARDIOGRAPHER-LOKIE DRIVER Work Phone: [facility] 06-17-2024 08:37-0400 Body temperature 97.39 [degF] Rebeca Gutierrez ECHOCARDIOGRAPHER-LOKIE DRIVER Work Phone: [facility] 06-17-2024 08:37-0400 Body weight 85.23 kg Rebeca Gutierrez ECHOCARDIOGRAPHER-LOKIE DRIVER Work Phone: [facility] 06-17-2024 08:37-0400 Diastolic blood pressure 75 mm[Hg] Rebeca Gutierrez ECHOCARDIOGRAPHER-LOKIE DRIVER Work Phone: [facility] 06-17-2024 08:37-0400 Heart rate 53 /min Rebeca Gutierrez ECHOCARDIOGRAPHER-LOKIE DRIVER Work Phone: [facility] 06-17-2024 08:37-0400 Systolic blood pressure 143 mm[Hg] Rebeca Gutierrez ECHOCARDIOGRAPHER-LOKIE DRIVER Work Phone: [facility] 06-17-2024 08:36-0400 Body mass index (BMI) [Ratio] 29.43 kg/m2 Daisha Sobotka DO Work Phone: [facility] 06-17-2024 08:36-0400 Body temperature 97.39 [degF] Daisha Sobotka DO Work Phone: [facility] 06-17-2024 08:36-0400 Body weight 85.23 kg Daisha Sobotka DO Work Phone: [facility] 06-17-2024 08:36-0400 Diastolic blood pressure 75 mm[Hg] Daisha Max DO Work Phone: [facility] 06-17-2024 08:36-0400 Heart rate 53 /min Daisha Gamboaotka DO Work Phone: [facility] 06-17-2024 08:36-0400 Systolic blood pressure 143 mm[Hg] Daisha Mtzka DO Work Phone: [facility] 02-26-2024 09:07-0400 Diastolic blood pressure 56 mm[Hg] Candie Almaguer MD Work Phone: [facility] 02-26-2024 09:07-0400 Heart rate 65 /min Candie Almaguer MD Work Phone: [facility] 02-26-2024 09:07-0400 Systolic blood pressure 113 mm[Hg] Candie Almaguer MD Work Phone: [facility] 02-26-2024 09:06-0400 Body height 170.2 cm Candie Almaguer MD Work Phone: [facility] 02-26-2024 09:06-0400 Body mass index (BMI) [Ratio] 28.9 kg/m2 Candie Almaguer MD Work Phone: [facility] 02-26-2024 09:06-0400 Body weight 83.69 kg Candie Almaguer MD Work Phone: [facility] 02-26-2024 09:06-0400 Respiratory rate 20 /min Candie Almaguer MD Work Phone: [facility] 02-26-2024 09:06-0400 SaO2% (BldA) [Mass fraction] 97 % Candie Almaguer MD Work Phone: [facility] 01-23-2024 15:04-0500 Body temperature 97.9 [degF] Kevin Sage MD Work Phone: [facility] 01-23-2024 15:04-0500 Diastolic blood pressure 67 mm[Hg] Kevin Sage MD Work Phone: [facility] 01-23-2024 15:04-0500 Heart rate 51 /min Kevin Sage MD Work Phone: [facility] 01-23-2024 15:04-0500 Respiratory rate 16 /min Kevin Sage MD Work Phone: [facility] 01-23-2024 15:04-0500 SaO2% (BldA) [Mass fraction] 94 % Kevin Sage MD Work Phone: [facility] 01-23-2024 15:04-0500 Systolic blood pressure 151 mm[Hg] Kevin Sage MD Work Phone: [facility] 01-23-2024 10:46-0500 Body mass index (BMI) [Ratio] 30.94 kg/m2 Kevin Sage MD Work Phone: [facility] 01-23-2024 10:46-0500 Body weight 89.6 kg Kevin Sage MD Work Phone: [facility] 01-18-2024 11:21-0500 Body height 170.2 cm Kevin Sage MD Work Phone: [facility] 01-06-2024 09:04-0500 Body height 170.2 cm Zuly Bruno NP Work Phone: [facility] 01-06-2024 09:04-0500 Body mass index (BMI) [Ratio] 32.42 kg/m2 Zuly Bruno NP Work Phone: [facility] 01-06-2024 09:04-0500 Body temperature 97.81 [degF] Zulytray Torresholz [employer] Work Phone: [facility] 01-06-2024 09:04-0500 Body weight 93.89 kg Zulytray Torresholz [employer] Work Phone: [facility] 01-06-2024 09:04-0500 Diastolic blood pressure 70 mm[Hg] Zuly Brianholz [employer] Work Phone: [facility] 01-06-2024 09:04-0500 Heart rate 95 /min Zuly Lexiehholz [employer] Work Phone: [facility] 01-06-2024 09:04-0500 Respiratory rate 17 /min Zuly Brianholz [employer] Work Phone: [facility] 01-06-2024 09:04-0500 SaO2% (BldA) [Mass fraction] 99 % Zuly Brianholz [employer] Work Phone: [facility] 01-06-2024 09:04-0500 Systolic blood pressure 138 mm[Hg] Zuly Lexiehholz [employer] Work Phone: [facility] 09-11-2023 10:31-0400 Body temperature 97.81 [degF] Steve Yeison MBBS Work Phone: [facility] 09-11-2023 10:31-0400 Diastolic blood pressure 66 mm[Hg] Steve Yeison MBBS Work Phone: [facility] 09-11-2023 10:31-0400 Heart rate 70 /min Steve Yeison MBBS Work Phone: [facility] 09-11-2023 10:31-0400 Respiratory rate 20 /min Steve Yeison MBBS Work Phone: [facility] 09-11-2023 10:31-0400 SaO2% (BldA) [Mass fraction] 91 % Steve Yeison MBBS Work Phone: [facility] 09-11-2023 10:31-0400 Systolic blood pressure 129 mm[Hg] Steve Yeison MBBS Work Phone: [facility] 09-10-2023 15:50-0400 Body mass index (BMI) [Ratio] 31.99 kg/m2 Steve Yeison MBBS Work Phone: [facility] 09-10-2023 15:50-0400 Body weight 92.67 kg Steve Yeison MBBS Work Phone: [facility] 09-02-2023 07:32-0400 Body height 170.2 cm Steve Yeison MBBS Work Phone: [facility] 08-28-2023 13:33-0400 Body height 170.2 cm Steve Yeison MBBS Work Phone: [facility] 08-28-2023 13:33-0400 Body mass index (BMI) [Ratio] 32.12 kg/m2 Steve Yeison MBBS Work Phone: [facility] 08-28-2023 13:33-0400 Body temperature 97.3 [degF] Steve Yeison MBBS Work Phone: [facility] 08-28-2023 13:33-0400 Body weight 93.03 kg Steve Yeison MBBS Work Phone: [facility] 08-28-2023 13:33-0400 Diastolic blood pressure 41 mm[Hg] Steve Yeison MBBS Work Phone: [facility] 08-28-2023 13:33-0400 Heart rate 116 /min Steve Yeison MBBS Work Phone: [facility] 08-28-2023 13:33-0400 Systolic blood pressure 106 mm[Hg] Steve Yeison MBBS Work Phone: [facility] 06-12-2023 14:50-0400 Body mass index (BMI) [Ratio] 33.8 kg/m2 Rebeca Gutierrez ECHOCARDIOGRAPHER-LOKIE DRIVER Work Phone: [facility] 06-12-2023 14:50-0400 Body temperature 97.3 [degF] Rebeca Gutierrez ECHOCARDIOGRAPHER-LOKIE DRIVER Work Phone: [facility] 06-12-2023 14:50-0400 Body weight 97.89 kg Rebeca Gutierrez ECHOCARDIOGRAPHER-LOKIE DRIVER Work Phone: [facility] 06-12-2023 14:50-0400 Diastolic blood pressure 77 mm[Hg] Rebeca Gutierrez ECHOCARDIOGRAPHER-LOKIE DRIVER Work Phone: [facility] 06-12-2023 14:50-0400 Heart rate 76 /min Rebeca Gutierrez ECHOCARDIOGRAPHER-LOKIE DRIVER Work Phone: [facility] 06-12-2023 14:50-0400 Systolic blood pressure 146 mm[Hg] Rebeca Gutierrez ECHOCARDIOGRAPHER-LOKIE DRIVER Work Phone: [facility] 01-16-2023 08:57-0500 Body height 170.2 cm [facility] Work Phone: [facility] 01-16-2023 08:57-0500 Body mass index (BMI) [Ratio] 33.66 kg/m2 [facility] Work Phone: [facility] 01-16-2023 08:57-0500 Body temperature 97.3 [degF] [facility] Work Phone: [facility] 01-16-2023 08:57-0500 Body weight 97.48 kg [facility] Work Phone: [facility] 01-16-2023 08:57-0500 Diastolic blood pressure 75 mm[Hg] [facility] Work Phone: [facility] 01-16-2023 08:57-0500 Heart rate 76 /min [facility] Work Phone: [facility] 01-16-2023 08:57-0500 Systolic blood pressure 142 mm[Hg] [facility] Work Phone: [facility] 09-10-2022 09:38-0400 Body height 170.2 cm Ryan Yepez MD Work Phone: [facility] 09-10-2022 09:38-0400 Body mass index (BMI) [Ratio] 33.67 kg/m2 Ryan Yepez MD Work Phone: [facility] 09-10-2022 09:38-0400 Body weight 97.52 kg Ryan Yepez MD Work Phone: [facility] 09-10-2022 09:38-0400 Diastolic blood pressure 83 mm[Hg] Ryan Yepez MD Work Phone: [facility] 09-10-2022 09:38-0400 Heart rate 64 /min Ryan Yepez MD Work Phone: [facility] 09-10-2022 09:38-0400 SaO2% (BldA) [Mass fraction] 96 % Ryan Yepez MD Work Phone: [facility] 09-10-2022 09:38-0400 Systolic blood pressure 129 mm[Hg] Ryan Yepez MD Work Phone: [facility] 07-07-2022 13:48-0400 Diastolic blood pressure 76 mm[Hg] Ryan Yepez MD Work Phone: [facility] 07-07-2022 13:48-0400 Heart rate 82 /min Ryan Yepez MD Work Phone: [facility] 07-07-2022 13:48-0400 SaO2% (BldA) [Mass fraction] 96 % Ryan Yepez MD Work Phone: [facility] 07-07-2022 13:48-0400 Systolic blood pressure 141 mm[Hg] Ryan Yepez MD Work Phone: [facility] 06-27-2022 13:32-0400 Body height 170.2 cm Ryan Yepez MD Work Phone: [phone])[phone] [address] 06-27-2022 13:32-0400 Body mass index (BMI) [Ratio] 34.24 kg/m2 Ryan Yepez MD Work Phone: 9(150)[phone] [address] 06-27-2022 13:32-0400 Body temperature 98.6 [degF] Ryan Yepez MD Work Phone: [facility] 06-27-2022 13:32-0400 Body weight 99.16 kg Ryan Yepez MD Work Phone: 1(179)[phone] [address] 06-27-2022 13:32-0400 Diastolic blood pressure 78 mm[Hg] Ryan Yepez MD Work Phone: [facility] 06-27-2022 13:32-0400 Heart rate 77 /min Ryan Yepez MD Work Phone: [facility] 06-27-2022 13:32-0400 SaO2% (BldA) [Mass fraction] 95 % Ryan Yepez MD Work Phone: [facility] 06-27-2022 13:32-0400 Systolic blood pressure 121 mm[Hg] Ryan Yepez MD Work Phone: [facility] 06-27-2022 10:52-0400 Body height 170.2 cm Rena Brewster RN [facility] 06-27-2022 10:52-0400 Body mass index (BMI) [Ratio] 34.46 kg/m2 Rena Brewster RN [facility] 06-27-2022 10:52-0400 Body temperature 98.2 [degF] Rena Brewster RN [facility] 06-27-2022 10:52-0400 Body weight 99.79 kg Rena Brewster RN [facility] 06-27-2022 10:52-0400 Diastolic blood pressure 73 mm[Hg] Rena Brewster RN [facility] 06-27-2022 10:52-0400 Heart rate 78 /min Rean Brewster RN [facility] 06-27-2022 10:52-0400 Respiratory rate 20 /min Rena Brewster RN [facility] 06-27-2022 10:52-0400 SaO2% (BldA) [Mass fraction] 97 % Rena Brewster RN [facility] 06-27-2022 10:52-0400 Systolic blood pressure 135 mm[Hg] Rena Brewster RN [facility] 06-12-2022 14:23-0400 Body mass index (BMI) [Ratio] 34.59 kg/m2 Steve Latham MBBS Work Phone: [facility] 06-12-2022 14:23-0400 Body temperature 97 [degF] Steve Farrari MBBS Work Phone: [facility] 06-12-2022 14:23-0400 Body weight 100.2 kg Steve Farrari MBBS Work Phone: [facility] 06-12-2022 14:23-0400 Diastolic blood pressure 66 mm[Hg] Steve Farrari MBBS Work Phone: [facility] 06-12-2022 14:23-0400 Heart rate 63 /min Steve LEIGH Work Phone: [facility] 06-12-2022 14:23-0400 Systolic blood pressure 133 mm[Hg] Stevemassiel Farrarmatthew LEIGH Work Phone: [facility] 05-20-2022 15:21-0400 Body temperature 97.9 [degF] Gian Villatoro MD Work Phone: [facility] 05-20-2022 15:21-0400 Diastolic blood pressure 64 mm[Hg] Gian Villatoro MD Work Phone: [facility] 05-20-2022 15:21-0400 Heart rate 55 /min Gian Villatoro MD Work Phone: [facility] 05-20-2022 15:21-0400 Respiratory rate 15 /min Gian Villatoro MD Work Phone: [facility] 05-20-2022 15:21-0400 SaO2% (BldA) [Mass fraction] 95 % Gian Villatoro MD Work Phone: [facility] 05-20-2022 15:21-0400 Systolic blood pressure 145 mm[Hg] Gian Villatoro MD Work Phone: [facility] 05-19-2022 12:15-0400 Body mass index (BMI) [Ratio] 35.87 kg/m2 Gian Villatoro MD Work Phone: [facility] 05-19-2022 12:15-0400 Body weight 103.92 kg Gian Villatoro MD Work Phone: [facility] Comment on above: standing scale 05-16-2022 16:19-0400 Body height 170.2 cm Gian Villatoro MD Work Phone: [phone] [address] 10-19-2018 08:44-0500 BMI (Body Mass Index) 26.58 kg/m2 [facility] Work Phone: 10-19-2018 08:44-0500 BP Diastolic 76 [...] BMI (Body Mass Index) 27.24 kg/m2 [facility] Work Phone: 10-12-2018 09:50-0500 Body Temperature 98.6 [degF] [facility] Work Phone: 10-12-2018 09:50-0500 BP Diastolic 80 mm[Hg] [facility] Work Phone: 10-12-2018 09:50-0500 BP Systolic 157 mm[Hg] Elmahdi [facility] Work Phone: 10-12-2018 09:50-0500 Height 169.5 cm [facility] Work Phone: 10-12-2018 09:50-0500 Pulse (Heart Rate) 94 /min [facility] Work Phone: 10-12-2018 09:50-0500 Weight 78.29 kg [facility] Work Phone: Encounters Encounter Date Encounter Type Care Provider Facility Start: 06-23-2024 End: 06-23-2024 ambulatory Meka Munoz [facility] Start: 06-23-2024 End: 06-23-2024 Patient encounter procedure Meka Munoz [facility] Start: 06-17-2024 End: 06-17-2024 Office outpatient visit 25 minutes Daisha Max DO Work Phone: [facility] Comment on above: Liver lesion (Primar y Dx); Liver transplant recipient; High risk medication use; Therapeutic drug monitoring; 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) Start: 06-17-2024 ambulatory DAISHA MAX Facil ity:[facility] Start: 05-26-2024 End: 05-26-2024 ambulatory Evan Bolton RPh,PharmD Pharm[facility] Out[facility] Start: 05-26-2024 End: 05-26-2024 Patient encounter procedure Evan Bolton RPh,PharmD [facility]acy Outpatient [facility] Start: 05-13-2024 End: 05-13-2024 ambulatory [facility] Start: 04-18-2024 End: 04-18-2024 ambulatory ZULY [...] [facility] Start: 03-01-2024 ambulatory ZULY AICHHOLZ Facility: [facility] Start: 03-01-2024 End: 03-01-2024 ambulatory JOHNNA BRINK Not Available Start: 02-26-2024 ambulatory ZULY AICHHOLZ Facility: [facility] Start: 02-26-2024 End: 02-26-2024 Office outpatient new 30 minutes Candie Almaguer MD Work Phone: [facility] Comment on above: Heart failure, diast olic, acute (Primary Dx) Start: 02-26-2024 ambulatory ZULY AICHHOLZ Facility: [facility] Start: 02-25-2024 End: 02-25-2024 ambulatory FIDELINA DANIEL Not Available Start: 02-23-2024 End: 02-23-2024 ambulatory PALMA PALACIOS Not Available Start: 02-11-2024 End: 02-11-2024 ambulatory ZULY AICHHOLZ Not Available Start: 01-16-2024 Encounter for other preprocedural examination KELVIN PACHECO [facility] Start: 01-16-2024 End: 01-23-2024 Evaluation and management of inpatient Kevin Sage MD Work Phone: [email or web address] Comment on above: Pleural effusion on right Start: 01-16-2024 End: 01-23-2024 Patient encounter status Kevin Sage MD Work Phone: [facility] Work Phone: Start: 01-12-2024 End: 01-12-2024 ambulatory Angel Fete RPh,PharmD [facility] Start: 01-12-2024 End: 01-12-2024 Patient encounter procedure Angel Fete RPh,PharmD Pharmacy Outpatient [facility] Start: 01-08-2024 Clinisync Result Encounter Generic External Data Provider [facility] External Department Unsolicited Start: 01-08-2024 Clinisync Result Encounter Generic External Data Provider [facility] External Department Unsolicited Start: 01-06-2024 End: 01-06-2024 ambulatory ZULY AICHHOLZ Not Available Start: 01-06-2024 End: 01-06-2024 Office outpatient visit 25 minutes Zuly Marissaz [employer] Work Phone: [facility] Comment on above: Bilateral lower extr emity edema (Primary Dx); 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); Atherosclerosis 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); Obesity (BMI 30-39.9); DARLENE (obstructive sleep apnea); Tremor; Immunocompromised ([facility]); Primary hypertension ([facility]); Shortness of breath Start: 01-01-2024 Clinisync [...] [facility]anc[facility] Start: 09-29-2023 ambulatory ZULY AICHHOLZ Facility: [facility] Start: 09-23-2023 ambulatory ZULY BRUNO Facility: [facility] Start: 09-15-2023 [facility] Start: 08-28-2023 End: 09-11-2023 Evaluation and management of inpatient Steve Latham MBBS Work Phone: [id number] Start: 08-28-2023 End: 08-28-2023 Office outpatient visit 25 minutes Steve Latham MBBS Work Phone: [facility] Comment on above: Immunosuppressed sta tus (Primary Dx); Kidney replaced by transplant; Aftercare following organ transplant; High risk medication use; Other general symptoms and signs; Abnormal blood chemistry; Hypertension secondary to other renal disorders Start: 08-28-2023 ambulatory STEVE LATHAM Facility:[facility] Start: 08-19-2023 ambulatory Meka rueda [facility] Pharmacy Outpatient RX [facility] Start: 08-19-2023 Patient encounter procedure Meka Munoz [facility] Pharm[facility] Outpatient [facility] Start: 06-12-2023 End: 06-12-2023 Office outpatient visit 25 minutes Steve Latham MBBS Work Phone: [facility] Comment on above: 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) Start: 06-10-2023 ambulatory Maren Bar RPh,PharmD Pharmacy Outpatient RX [facility] Start: 06-10-2023 Patient encounter procedure Maren Dipika RPh,PharmD Pharmacy Outpatient RX [facility] Start: 04-28-2023 End: 04-29-[address] DOCTOR EVANS Facility: Start: 03-12-2023 ambulatory Angel Madsene RPh,PharmD Pharmacy Outpatient RX [facility] Start: 03-12-2023 Patient encounter procedure Angel Madsene RPh,PharmD Pharmacy Outpatient RX [facility] Start: 03-10-2023 ambulatory Angel Madsene RPh,PharmD Pharmacy [...] MD Work Phone: [facility] Comment on above: BPH with obstruction /lower urinary tract symptoms (Primary Dx); Encounter for screening for malignant neoplasm of prostate Start: 08-28-2022 End: 08-29-2022 ambulatory ROB BRUNO Facility:[facility] Start: 08-14-2022 End: 08-15-[address] DOCTOR EVANS Facility:[facility] Start: 07-07-2022 End: 07-07-2022 Patient encounter procedure Ryan Yepez MD Work Phone: [facility] [place] Comment on above: Other hydronephrosis (Primary Dx); [...] MD Work Phone: [facility] [place] Comment on above: Other hydronephrosis (Primary Dx) [...] visit 25 minutes Steve LEIGH Work Phone: [facility] [...] [facility] Work Phone: Pharmacy Outpatient [facility] Start: 03-14-2022 Patient encounter procedure Comfort Rivera [facility] Work Phone: Pharmacy Outpatient RX [facility] Start: 06-14-2021 End: 06-14-2021 ambulatory Comfort Rivera [facility] Work Phone: [facility] Start: 06-14-2021 Patient encounter procedure Comfort Rivera [facility] Work Phone: [facility] Start: 01-20-2020 End: 01-27-2020 Patient encounter procedure PEPE CASE Facility:[facility] Start: 01-06-2020 End: 01-07-2020 Patient encounter procedure RENA GUDINO [facility] Start: 01-06-2020 End: 01-06-2020 Subsequent hospital visit by physician [facility] Start: 10-24-2019 End: 10-25-2019 Patient encounter procedure TANA CAMPA [facility] Start: 10-24-2019 End: 10-24-2019 Subsequent hospital visit by physician [facility] Start: 08-27-2019 End: 08-28-2019 Patient encounter procedure [facility] Start: 08-27-2019 End: 08-27-2019 Subsequent hospital visit by physician [facility] Start: 08-08-2019 End: 08-09-2019 [facility] Start: 08-08-2019 End: 08-08-2019 Subsequent hospital visit by physician [facility] Start: 08-03-2019 End: 08-04-2019 [facility] Start: 08-03-2019 End: 08-03-2019 Subsequent hospital visit by physician [facility] Start: 08-01-2019 End: 08-02-2019 [facility] Start: 08-01-2019 End: 08-01-2019 Subsequent hospital visit by physician [facility] Start: 06-10-2019 End: 06-11-2019 Patient encounter procedure RENA GUDINO [facility] Start: 06-01-2019 End: 06-02-2019 Patient encounter procedure RENA GUDINO [facility] Start: 01-14-2019 End: 01-15-2019 Patient encounter procedure RENA GUDINO [facility] Start: 11-17-2018 End: 11-17-2018 Patient encounter procedure Fidelina [facility] [place] [facility] Comment on above: Social Work Follow-u p Start: 10-19-2018 End: 10-19-2018 Patient encounter Autumn [facility] Pre Transplant Office Comment [...] 10-13-2018 End: 10-13-2018 Patient encounter procedure Autumn [facility] Pre Trans[facility] Comment on [...] [facility] Work Phone: [facility] Procedures Date Procedure Procedure Detail Performing Clinician [...] By: #### X M ####[facility] ([facility])[address] [place] [address] Start: 01-22-2024 Assay of magnesium Just in Jake LUZ Work Phone: Start: 01-22-2024 Drug screen quantita tive tacrolimus Arelis Mera MD Work Phone: Start: 01-21-2024 Assay of magnesium Just in Jake LUZ Work Phone: Start: 01-21-2024 Drug screen quantita tive tacrolimus Arelis Mera MD Work Phone: Start: 01-20-2024 Right heart cath o2 saturation & cardiac output LU Jian MD Work Phone: Start: 01-20-2024 End: 01-20-2024 Blood count hemoglobin LU Jain MD Work Phone: Start: 01-20-2024 Cardiac catheterization LU Jain MD Work Phone: Start: 01-20-2024 Assay of magnesium Just in Jake LUZ Work Phone: Start: 01-20-2024 Hepatic function panel Arelis Mera MD Work Phone: Start: 01-20-2024 ITRACONAZOLE LEVEL Jennifer norbert K Dorian [facility] Work [...] quantifica tion each organism Fidelina K Dorian [facility] Work [...] AURIS SCREEN BY PCR Carol Ann Capps ECHOCARDIOGRAPHER-SOFTWARE PROJECT LEAD Work Phone: Start: 01-08-2024 ALL CBC WITH [...] cell surf marker techl only ea Izzy Loear MD Work Phone: Start: 09-03-2023 Radiologic exam [...] AURIS SCREEN BY PCR Carol Ann Capps ECHOCARDIOGRAPHER-SOFTWARE PROJECT LEAD Work Phone: Start: 08-28-2023 CBC AND ELECTRONIC [...] above: Performed By: #### C MP #### [facility] [address] [place] [address] Dr. Dwight Waters Start: 07-07-2022 Rmvl nfros [...] recipient S/P liver trans plant Comfort Miguel [facility] Work [...] ROB KASMANI Start: 08-03-2019 Hemoglobin glycosylated a1c Orb Kasmani Work Phone: Start: 08-01-2019 Blood count [...] 10-12-2018 End: 10-12-2018 Antibody rubeola Yovani Mejias [employer] Work Phone: Start: 10-12-2018 End: 10-12-2018 Antibody varicella-zoster Yovani Orr Work Phone: Start: 10-12-2018 End: 10-12-2018 Assay of ethanol Yovani Orr Work Phone: Start: 10-12-2018 End: 10-12-2018 Assay of ferritin Yovani Orr Work Phone: Start: 10-12-2018 End: 10-12-2018 Assay of iron Yovani Mejias [employer] Work Phone: Start: 10-12-2018 End: 10-12-2018 Assay [...] 10-12-2018 Drug screening cannabinoids natural Yovani Mejias [employer] Work Phone: Start: 10-12-2018 End: 10-12-2018 Hepatitis [...] 10-12-2018 End: 10-12-2018 PSA screening Yovani Mejias [facility] Work Phone: Start: 10-12-2018 End: 10-12-2018 Thromboplastin time partial plasma/whole blood Yoavni Orr Work Phone: Start: 10-12-2018 End: [...] Kidn ey replaced by transplant Rebeca Gutierrez ECHOCARDIOGRAPHER-LOKIE DRIVER Work Phone: Plan of Treatment Date Care Activity Detail Author Start: 09-20-2029 Screening for malignant neoplasm of colon [facility] Start: 07-04-2025 Potassium [Moles/volume] in Serum or Plasma POTASSIUM [facility] Start: 06-20-2025 Potassium [Moles/volume] in Serum or Plasma POTASSIUM [facility] Start: 06-16-2025 End: 06-16-2025 Patient encounter procedure [facility] Start: 06-13-2025 Potassium [Moles/volume] in Serum or Plasma POTASSIUM [facility] Start: 05-23-2025 Potassium [Moles/volume] in Serum or Plasma POTASSIUM [facility] Start: 03-28-2025 Potassium [Moles/volume] in Serum or Plasma POTASSIUM [facility] Start: 03-21-2025 Potassium [Moles/volume] in Serum or Plasma POTASSIUM [facility] Start: 02-28-2025 Potassium [Moles/volume] in Serum or Plasma POTASSIUM [facility] Start: 01-23-2025 Potassium [Moles/volume] in Serum or Plasma POTASSIUM [facility] Start: 09-07-2024 End: 09-07-2024 Telemedicine consultation with patient 09/07/2024 3:00 PM EDT Telemedicine Infectious Diseases Care [facility] [address] [facility] [address]th [place] [id number] Evan White DO [address] [place], [place] [id number] [facility] Start: 08-31-2024 Screening for malignant neoplasm of lung [facility] Start: 07-31-2024 Influenza vaccination INFLUENZA VACCINE (#1) [facility] Start: 06-17-2024 End: 06-17-2024 ambulatory [facility] Start: 06-17-2024 End: 06-17-2024 Patient encounter procedure [facility] Start: 03-22-2024 Fasting lipid profile LIPID SCREENING [facility] Start: 03-22-2024 Lipid panel [facility] Start: 02-26-2024 End: 02-26-2024 Patient encounter procedure 02/26/2024 9:30 AM EDT Office Visit Ins[facility] Manager Center Kehinde Dlaila [facility] [address] [place] [address] Candie Almaguer MD [address] [place] [address] Ins[facility] Manager Center Kehinde Conner [facility] Start: 02-11-2024 End: 02-11-2024 Patient encounter procedure 02/11/2024 10:30 AM EDT Office Visit [facility] [address] [place] [address] Zuly Bruno NP [address] [place] [address] [facility] Start: 02-09-2024 End: 02-09-2024 Telemedicine consultation with patient 02/09/2024 3:30 PM EDT Telemedicine Infectious Diseases Care [facility] [address] [facility] [address] [place] [phone] Hakeem Alamo MD [address] [address] Infectious Diseases Care [facility] Start: 01-15-2024 End: 01-15-2024 ambulatory [facility] Start: 01-15-2024 End: 01-15-2024 Patient encounter procedure [facility] Start: 01-06-2024 End: 01-06-2026 Echocardiogram 2D [...] Visit [facility] [address] [place] [address] Zuly Bruno NP [address] [place] [address] [facility]SELL Start: 12-08-2023 End: 09-07-2024 CT Chest WO contrast [facility] Work Phone: Start: 12-01-2023 COVID-19 VACCINE (2 - Moderna risk series) COVID-19 VACCINE (2 - Moderna risk series) [facility] Start: 09-23-2023 End: 09-23-2023 ambulatory [facility] Start: 09-23-2023 End: 09-23-2023 Telemedicine consultation with patient 09/23/2023 4:00 PM EDT Telemedicine Infectious Diseases Care [facility] [address] [place] [address] Hakeem Alamo MD [address] [place] [address] Infectious Diseases Care [facility] Start: 09-15-2023 End: 09-10-2024 ITRACONAZOLE LEVEL [facility] Start: 08-25-2023 End: 08-25-2024 ALLOSCREEN RECIPIENT (POST TX PRA) ALLOSCREEN RECIPIENT (POST TX PRA) Lab Routine Kidney replaced by transplant Aftercare following organ transplant Immunosuppressed status High risk medication use Other general symptoms and signs Abnormal blood chemistry Expected: 08/25/2023, Expires: 08/25/2024 [facility] Comment on above: Expected: 08/25/2023, Expires: Start: 07-31-2023 Influenza vaccination [facility] Start: 06-12-2023 End: 06-12-2023 Patient encounter procedure 06/12/2023 Office Visit Transplant Surgery Steve Latham MBBS [address] [place] [id number] [facility] Start: 03-11-2023 End: 03-11-2023 Telemedicine consultation with patient 03/11/2023 Telemedicine Urology Ryan Yepez MD [address] [facility] [address] [place] [address] [facility] [place] Start: 01-16-2023 End: 01-16-2023 Patient encounter procedure 01/16/2023 Office Visit Transplant Surgery [facility] Start: 10-31-2022 End: 10-31-2022 Patient encounter procedure 10/31/2022 Office Visit Transplant Surgery Steve Latham, LU [address] [place] [address] [facility] Start: 09-10-2022 End: 09-10-2023 PSA screening PSA, SCREENING Lab Routine BPH with obstruction/lower urinary tract symptoms Encounter for screening for malignant neoplasm of prostate Expected: 09/10/2022 (Approximate), Expires: 09/10/2023 [facility] Comment on above: Expected: 09/10/2022 (Approximate), Expi res: 09/10/2023 Start: 08-11-2022 End: 08-11-2022 Patient encounter procedure 08/11/2022 Office Visit Urology Ryan Yepez MD [address] [facility] [address] [place] [address] Urology Eye [facility] [place] Start: 07-31-2022 Influenza vaccination [facility] Start: 07-07-2022 End: 07-07-2022 Patient encounter procedure 07/07/2022 Office Visit Ryan Webster MD [address] [facility] [address] [place] [address] [facility] [place] Start: 07-07-2022 End: 07-07-2023 FLUORO IMAGING FOR UROLOGY [facility] Comment on above: Expected: 07/07/2022, Expires: 3 1 Occurrences starti ng 07/07/2022 until 07/07/2022 Start: 06-27-2022 End: 06-27-2022 Patient encounter procedure 06/27/2022 Office Visit Urology Ryan Yepez MD [address] [facility] [address] [place] [address] [facility] [place] Start: 06-27-2022 End: 06-27-2023 Basic metabolic 2000 panel - Serum or Plasma BASIC METABOLIC PANEL Lab Routine Other hydronephrosis Expected: 06/27/2022, Expires: 06/27/2023 [facility] Comment on above: Expected: 06/27/2022, Expires: Start: 06-27-2022 End: 06-27-2022 Patient encounter procedure 06/27/2022 Appointment Computerized Tomography Scan Ryan Yepez MD [address] [facility] [address] [place] [id number] Department of Radiology Start: 06-15-2022 End: 05-16-2023 CT Abdomen and Pelvis WO contrast CT ABDOMEN/PELVIS WITHOUT CONTRAST Imaging Routine FAYE (acute kidney injury) Expected: 06/15/2022 (Approximate), Expires: 05/16/2023 [facility] Work Phone: Comment on above: Expected: 06/15/2022 (Approximate), Expi res: 05/16/2023 Start: 06-12-2022 End: 06-12-2022 Patient encounter procedure 06/12/2022 Office Visit Transplant Surgery Steve Latham, LU [address] [place] [phone] [facility] Start: 06-11-2022 End: 06-11-2023 BK VIRUS DNA QN, PCR, PLASMA BK VIRUS DNA QN, PCR, PLASMA Lab Routine Kidney replaced by transplant Liver replaced by transplant Abnormal blood chemistry Expected: 06/11/2022, Expires: 06/11/2023 [facility] Comment on above: Expected: 06/11/2022, Expires: Start: 06-04-2022 End: 06-04-2022 Patient encounter procedure 06/04/2022 Office Visit [facility] Start: 10-18-2021 End: 10-18-2021 Patient encounter procedure 10/18/2021 Office Visit Transplant Surgery Steve Latham, LU [address] [place] [address] [facility] Start: 07-31-2021 Influenza vaccination INFLUENZA VACCINE (#1) [facility] Start: 07-26-2021 End: 07-26-2021 Patient encounter procedure 07/26/2021 Office Visit Transplant Surgery [facility] Start: 2021 Prostate specific antigen measurement [facility] Start: 2021 Screening for malignant neoplasm of lung LUNG CANCER SCREENING [facility] Start: 2021 Zoster vaccine hzv live for subcutaneous use ZOSTER (SHINGLES) VACCINE (1 of 2) [facility] Start: 09-20-2020 Colonoscopy COLORECTAL CANCER SCREENING DISCUSSION [facility] Start: 09-20-2020 Screening for malignant neoplasm of colon [facility] Start: 07-31-2019 Influenza vaccination Flu vaccine (#1) [place], [place] Start: 05-22-2019 Annual Wellness Visit (AWV) Annual Wellness Visit (AWV) [place] Start: 04-18-2019 End: 10-19-2019 Ultrasonography of abdomen US ABDOMEN RUQ/LIVER/GB Routine Cirrhosis of liver without ascites, unspecified hepatic cirrhosis type Expected: 04/18/2019 (Approximate), Expires: 10/19/2019 [facility] Work Phone: Comment on above: Expected: 04/18/2019 (Approximate), Expi res: 10/19/2019 Start: 01-25-2019 End: 01-25-2019 Ambulatory 01/25/2019 Office Visit Gastroenterology Christin Elizabeth, ECHOCARDIOGRAPHER-LOKIE DRIVER [address] [place] [address] Division of Gastroenterology and Hepatology Gavin Start: 11-19-2018 End: 11-19-2018 Ambulatory 11/19/2018 Appointment [facility]monary [facility]ostics [facility] Start: 11-19-2018 End: 11-19-2018 Ambulatory [facility] Start: 10-19-2018 End: 10-19-2018 Ambulatory Ultrasound Jakob Start: 10-12-2018 End: 10-12-2019 Hemoglobin A1c/Hemoglobin.total mass fraction (Bld) HEMOGLOBIN A1C Routine Alcoholic cirrhosis, unspecified whether ascites present Pre-transplant evaluation for liver transplant Expected: 10/12/2018, Expires: 10/12/2019 [facility] Work Phone: Comment on above: Expected: 10/12/2018, Expires: 9 Start: 10-12-2018 End: 10-12-2019 TYPE AND SCREEN - NOT FOR TRANSFUSION TYPE AND SCREEN - NOT FOR TRANSFUSION Routine Alcoholic cirrhosis, unspecified whether ascites present Pre-transplant evaluation for liver transplant Expected: 10/12/2018, Expires: 10/12/2019 [facility] Work Phone: Comment on above: Expected: 10/12/2018, Expires: 9 Start: 07-31-2018 Influenza vaccination INFLUENZA VACCINE (#1) [facility] Work Phone: Start: 2011 Fasting lipid profile LIPID SCREENING [facility] Work Phone: Start: 2011 Lipid screen Lipid screen [place], [place] Start: 1990 DTaP/Tdap/Td vaccine (1 - Tdap) DTaP/Tdap/Td vaccine (1 - Tdap) [place] Start: 1990 Hepatitis B vaccination HEP B VACCINE (1 of 3 - 19+ 3-dose series) [facility] Start: 1990 Hepatitis B Vaccine (1 of 3 - Risk Recombivax 3-dose series) Hepatitis B Vaccine (1 of 3 - Risk Recombivax 3-dose series) [place], [place] Start: 1990 Third diphtheria, tetanus and acellular pertussis (DTaP) vaccination [facility] Start: 1990 Zoster vaccine hzv live for subcutaneous use ZOSTER (SHINGLES) VACCINE (1 of 2) [facility] Start: 1990 [facility] Start: 1989 Tetanus vaccination TETANUS [facility] Start: 1986 HIV screen HIV screen [place], [place] Start: 02-17-1984 HIV screening HIV SCREENING DISCUSSION [facility] Work Phone: Start: 1983 COVID-19 VACCINE (1) COVID-19 VACCINE (1) [facility] Start: 1982 DTaP/Tdap/Td vaccine (1 - Tdap) DTaP/Tdap/Td vaccine (1 - Tdap) [place], [place] Start: 1977 Pneumococcal 0-64 years Vaccine (1 of 3 - PCV13) Pneumococcal 0-64 years Vaccine (1 of 3 - PCV13) [place] Start: 1977 PNEUMOCOCCAL VACCINE SERIES (1 - PCV) PNEUMOCOCCAL VACCINE SERIES (1 - PCV) [facility] Start: 1977 PNEUMOCOCCAL VACCINE SERIES (1 of 2 - PCV) PNEUMOCOCCAL VACCINE SERIES (1 of 2 - PCV) [facility] Start: 1977 [facility] Start: 02-17-1976 COVID-19 VACCINE (#1) COVID-19 VACCINE (#1) [facility] Start: 02-17-1976 [facility] Start: 1971 COVID-19 VACCINE (#1) COVID-19 VACCINE (#1) [facility] Start: 1971 Hepatitis B vaccination HEP B VACCINE (1 of 3 - 3-dose series) [facility] Start: 1971 Medicare Annual Wellness (AWV) Medicare Annual Wellness (AWV) [facility] Start: 1971 Screening for malignant neoplasm of colon [facility] Start: 1971 Tetanus vaccination [facility] BK VIRUS DNA QN, PCR , PLASMA BK VIRUS DNA QN, PCR, PLASMA Lab Routine Kidney replaced by transplant Liver replaced by transplant Abnormal blood chemistry 06/12/2022 3:38 PM EDT [facility] CALCULI, URINARY (KIDNEY STONE) CALCULI, URINARY (KIDNEY STONE) Fluids Routine 05/19/2022 8:16 AM EDT [facility] Work Phone: CANNABINOIDS, QUANT (URINE)THC CONFIRMATION CANNABINOIDS, QUANT (URINE)THC CONFIRMATION Routine Alcoholic cirrhosis, unspecified whether ascites present ESRD (end stage renal disease) on dialysis Pre-transplant evaluation for liver transplant 10/12/2018 12:57 PM [facility] Work Phone: End: 09-10-2024 CHEM 6 (LYTES, BUN CREA) [facility] EBV VCA IGG AB EBV VCA IGG AB R outine Alcoholic cirrhosis, unspecified whether ascites present ESRD (end stage renal disease) on dialysis Pre-transplant evaluation for liver transplant 10/12/2018 12:57 PM [facility] Work Phone: Fungus identified in Unspecified specimen by Culture [facility] HLA TYPING (SOLID ORGAN) HLA TYPING (SOLID ORGAN) Routine Alcoholic cirrhosis, unspecified whether ascites present ESRD (end stage renal disease) on dialysis Pre-transplant evaluation for liver transplant 10/12/2018 12:57 PM [facility] Work Phone: HSV 1 AND 2 IGG ANTIBODY HSV 1 AND 2 IGG ANTIBODY Routine Alcoholic cirrhosis, unspecified whether ascites present ESRD (end stage renal disease) on dialysis Pre-transplant evaluation for liver transplant 10/12/2018 12:57 PM [facility] Work Phone: MR Abdomen WO and W contrast IV MRI ABDOMEN WITH AND WITHOUT CONTRAST Imaging Routine Liver lesion Ordered: 06/17/2024 [facility] Comment on above: Ordered: 06/17/2024 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 specific culture [facility] PLACEMENT NEPHROSTOM Y CATHETER PERCUTANEOUS W/ IMAGE GUIDANCE PLACEMENT NEPHROSTOMY CATHETER PERCUTANEOUS W/ IMAGE GUIDANCE Imaging Routine Hydronephrosis due to obstruction of ureteral orifice FAYE (acute kidney injury) 05/17/2022 11:08 AM EDT [facility] TX POST VOID RESIDUAL TX POST VO ID RESIDUAL TX - OFFICE PERFORMED Routine BPH with obstruction/lower urinary tract symptoms Ordered: 09/10/2022 [facility] Comment on above: Ordered: 09/10/2022 PTH INTACT PTH INTACT Routi ne Alcoholic cirrhosis, unspecified whether ascites present ESRD (end stage renal disease) on dialysis Pre-transplant evaluation for liver transplant 10/12/2018 12:57 PM [facility] Work Phone: RUBEOLA IGG AB (IMMU NE STATUS) RUBEOLA IGG AB (IMMUNE STATUS) Routine Alcoholic cirrhosis, unspecified whether ascites present ESRD (end stage renal disease) on dialysis Pre-transplant evaluation for liver transplant 10/12/2018 12:57 PM [facility] Work Phone: End: 01-16-2024 Standard ECG ECG ECG Routine One Time for 1 Occurrences starting 01/16/2024 until 01/16/2024 [facility] Comment on above: One Time for 1 Occurrences starting 12/31 until 01/16/2024 End: 09-10-2024 TACROLIMUS LEVEL, TROUGH (PRE DRUG LEVEL) [facility] VARICELLA IGG AB (IM M STATUS) VARICELLA IGG AB (IMM STATUS) Routine Alcoholic cirrhosis, unspecified whether ascites present ESRD (end stage renal disease) on dialysis Pre-transplant evaluation for liver transplant 10/12/2018 12:57 PM [facility] Work Phone: Immunizations Immunization Date Immunization Notes Care Provider Zeeshan marquez 11-03-2023 influenza virus vacc ine, unspecified formulation Generic Provider [facility] 11-03-2023 Moderna SARS-CoV-2 50mcg/0.5mL Booster Generic Provider [facility] Payers Date Payer Category Payer Unknown [id number] 2019 Unknown [facility] [id number] 2019-Present [id number] .[id number] 2018 Medicaid MEDICAID [facility] DEPT OF JOB xxxxxxxxxxxx 2018-Present [phone] [address] [place] [address] xxxxxxxxxxxx [id number] .[id number] 2018 Medicaid MEDICAID MEDICAI D [id number] 2018-Present [address] [place] [address] [id number] 1.2.840.233845.1.13.172.2.7.3 .[id number] 2018 Medicaid [id number]. 1.13.172.2.7.3 .[id number] 2018 Medicare MEDICARE MEDICAR E PART A AND B xxxxxxxxxxx 2018-Present [phone] [address] [address] [place] [address] xxxxxxxxxxx 1.2.840.329445.1.13.239.2.7.3 .746089.315 2018 Medicare [id number] 2018 Medicare MEDICARE MEDICAR E A AND B [id number] 2018-Present [address] [place] [address] [id number] 1.2.840.460103.1.13.172.2.7.3 .533607.315 2018 Medicare 1.2.840.827979. 1.13.172.2.7.3 .665458.315 1971 Unknown [id number] 2.16.840.1.904074.3.579.2.173 1971 Unknown [id number] 2.16.840.1.574423.3.579.2.173 1971 Unknown [id number] 2.16.840.1.570818.3.579.2.173 1971 Unknown [id number] 2.16.840.1.967565.3.579.2.173 1971 Unknown [id number] 2.16.840.1.438351.3.579.2.173 1971 Unknown [id number] 2.16.840.1.167039.3.579.2.173 1971 Unknown [id number] 2.16.840.1.145998.3.579.2.173 1971 Unknown [id number] 2.16.840.1.698946.3.579.2.173 1971 Unknown [id number] 2.16.840.1.182822.3.579.2.647 1971 Unknown [id number] 2.16.840.1.607399.3.579.2.593 1971 Unknown [id number] 2.16.840.1.297945.3.579.2.593 1971 Unknown [id number] 2.16.840.1.659394.3.579.2.593 1971 Unknown [id number] 2.16.840.1.740422.3.579.2.593 1971 Unknown [id number] 2.16.840.1.399525.3.579.2.593 1971 Unknown [id number] 2.16.840.1.830733.3.579.2.593 1971 Unknown [id number] 2.16.840.1.075005.3.579.2.593 1971 Unknown [id number] 2.16.840.1.941714.3.579.2.593 1971 Unknown [id number] 2.16.840.1.083621.3.579.2.593 1971 Unknown [id number] 2.16.840.1.144381.3.579.2.593 1971 Unknown [id number] 2.16.840.1.961404.3.579.2.593 1971 Unknown [id number] 2.16.840.1.162337.3.579.2.593 1971 Unknown [id number] 2.16.840.1.763943.3.579.2.593 1971 Unknown [id number] 2.16.840.1.309266.3.579.2.593 1971 Unknown [id number] 2.16.840.1.058215.3.579.2.593 1971 Unknown [id number] 2.16.840.1.759644.3.579.2.125 9 1971 Unknown [id number] 2.16.840.1.380126.3.579.2.125 9 1971 Unknown [id number] 2.16.840.1.534697.3.579.2.125 9 1971 Unknown [id number] 2.16.840.1.461650.3.579.2.125 9 1971 Unknown [id number] 2.16.840.1.126221.3.579.2.125 9 1971 Unknown [id number] 2.16.840.1.811600.3.579.2.125 9 1971 Unknown [id number] 2.16.840.1.882559.3.579.2.125 9 1971 Unknown [id number] 2.16.840.1.834844.3.579.2.125 9 1971 Unknown [id number] 2.16.840.1.468195.3.579.2.125 9 1971 Unknown [id number] 2.16.840.1.950209.3.579.2.125 9 1971 Unknown [id number] 2.16.840.1.754891.3.579.2.125 9 1971 Unknown [id number] 2.16.840.1.071402.3.579.2.125 9 1971 Unknown [id number] 2.16.840.1.046329.3.579.2.125 9 1971 Unknown [id number] 2.16.840.1.812025.3.579.2.125 9 1971 Unknown [id number] 2.16.840.1.564756.3.579.2.594 1971 Unknown [id number] 2.840.1.012965.3.579.2.594 1971 Unknown [id number] 2.16840.1.980135.3.579.2.594 1971 Unknown [id number] 2.840.1.297346.3.579.2.594 1971 Unknown [id number] 2.16840.1.865274.3.579.2.594 1971 Unknown [id number] 2.840.1.493952.3.579.2.594 1971 Unknown [id number] 2.16840.1.674522.3.579.2.594 1971 Unknown [id number] 2.16840.1.896371.3.579.2.594 1971 Unknown [id number] 2.16840.1.897167.3.579.2.594 1971 Unknown [id number] 2.840.1.896185.3.579.2.594 1971 Unknown [id number] 2.16840.1.831653.3.579.2.594 1971 Unknown [id number] 2.16.840.1.242817.3.579.2.594 1958 Medicaid [id number] 1958 Medicare [id number] Social History Date Type Detail Facility Start: 07-19-2018 End: 10-19-2018 Tobacco smoking status NHIS Former smoker [facility] Start: 07-19-1988 End: 05-14-2018 History of tobacco use Current smoker [facility] Work Phone: Start: 07-19-1988 End: 05-14-2018 History of tobacco use Cigarette Smoker [facility] Work Phone: Start: 10-19-2018 End: 06-17-2024 Cigarettes smoked current (pack per day) - Reported [facility] End: 07-19-1994 History of tobacco use Chews Tobacco [facility] Work Phone: Start: 1970 Sex Assigned At Not on file [facility] Work Phone: Start: 11-03-2018 Alcohol intake Current non-drinker of alcohol (finding) [place] Start: 06-22-2018 Alcohol Comment Hx of alcoholism [place] Start: 11-03-2018 End: 06-17-2024 Alcohol intake No [facility] Start: 07-19-2018 Tobacco use and exposure Former user [facility] Start: 09-06-2020 End: 06-17-2024 Alcohol intake Ex-drinker (finding) [facility] Start: 07-19-2018 Alcohol Comment stopped 05/14/2018 [facility] Start: 05-05-2022 End: 01-16-2023 Exposure to SARS-CoV-2 (event) Not sure [facility] Start: 07-07-2018 Gender identity Identifies as male gender (finding) [facility] Start: 01-16-2022 Sexual orientation Heterosexual (finding) [facility] Start: 11-03-2023 Tobacco use and [...] Dates [id number] Start: 05-23-2020 [id number] Start: 04-12-2020 [id number], [id number] [facility] Start: 05-17-2022 Comment on above: Description: Implant time-out completed by intra-procedural staff including this RN, telecasting technician, and performing physician. The following was [...] Required: No Receive/Pickup Date: 06/29/2024 Shipping Address: [address] [place] [address] [address] Contact Info: Specialty ([place]) [phone] Jakob [phone] [facility] [phone] Raheem [phone] Bedside Delivery ([facility]) [phone] documented in this encounter [facility] 06-17-2024 History of Present illness Narrative -Referring Provider for today's consult: Self, Self -Primary Care Provider: Zuly Bruno History of Present Illness George Styles is a 54 y.o. male who presents to the [facility] Transplant Hepatology Clinic today for follow-up of post liver transplant. I have reviewed his medical, surgical, family and social history and have updated medication and allergy information in the computerized patient record. I have also personally reviewed pertinent outside hospital documentation, laboratory results and imaging as outlined below. George tSyles with a history of EtOH cirrhosis and [...] Left; Surgeon: Jyoti Bryant MD, PhD; Location: [facility] MAIN OR PLACEMENT NEPHROSTOMY CATHETER PERCUTANEOUS W/ IMAGE GUIDANCE 05/17/2022 Surgeon: Enzo Heart DO; Location: [facility] INTERVENTIONAL RADIOLOGY (VIR) LIVER TRANSPLANT, ORTHOTOPIC N/A 04/12/2020 Laterality: N/A; Surgeon: LU Palma; Location: [facility] SAME DAY SURGERY MAIN OR KIDNEY TRANSPLANT W/O GRAND PORTAGE NEPHRECTOMY N/A 04/12/2020 Laterality: N/A; Surgeon: LU Palma; Location: [facility] SAME DAY SURGERY MAIN OR OTHER [...] 0.2 06/13/2024 Explant Pathology Pathologic Diagnosis A. [place] liver, orthotopic liver transplant resection (1458 gram): [...] up in 1 year. Daisha Max DO Wood Tank Erector Gastroenterology, Hepatology and Nutrition [facility] Pager: [phone] Images from the original note were not included. 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 Surveillance System Monitor: Anayeli Burt Date of Liver Transplant: 04/13/2020 (Kidney), 04/13/2020 (Liver) 4 years, 2 months post Liver/Kidney Transplant Primary Disease: Hypertensive Nephrosclerosis Transplant Envelope Folding Machine Adjuster: Erma Roe/ Daisha Max Primary Care physician: [...] LAB AND PHARMACY: None Specified [id number] [place] [address] - [address] [facility] [address] [facility] [address] [facility] [address] [facility] [place] [address] [facility]/pharmacy [facility][id number] [place] [address] [address] [facility] [address] [place] [id number] [facility] Jakob [address], [address] [place] [address] ROS and SCREEN: Chest Pain: negative Cough: [...] year: no Do you follow with a Fuel Handler? yes Do you have a Primary Care [...] this encounter [facility] 06-17-2024 Instructions Ashlee Fair RN - 06/17/2024 10:00 AM EDT - No medication changes from a liver standpoint - A MRI Abdomen has been ordered today. Please call central scheduling at [phone] to schedule or take paper copy to your local hospital - Return to clinic 06/16/2025 TRANSPLANT HEPATOLOGY 3, [facility] as scheduled documented in this encounter [facility] 06-17-2024 History of Present illness Narrative Images from the original note were not included. George Styles is a 54 y.o. 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 No longer follows with a local entrepreneurship program director. History of Present Illness: Since George was [...] and lab results. Rebeca Gutierrez MSN, RN, ECHOCARDIOGRAPHER-BC, CCTN Certified Nurse Practitioner [facility] [address] [facility] [address] documented in this encounter [facility] 06-17-2024 Instructions JEANNA Hess - 06/17/2024 9:30 AM EDT Tacrolimus - increase to 0.2 mg packet three time per day; goal 3 to 5 ng/dL ; when the itraconazole stops 09/03/2024, reduce to 0.5 mg twice daily. Once your tacrolimus level is 3-5 ng/dL, you may reduce labs to every other week. documented in this encounter [facility] 05-26-2024 History of Present illness Narrative [facility] RX OUTREACH ADVANCED: Call Information: Date and Time of Contact: 05/26/2024 4:35 PM Method of Contact: By Phone Contact Type: Prescriptions Contactor: [facility] OP Contactee: Patient Contact Outcome: Left message and Follow-up Contact Info: Specialty ([place]) [phone] Jakob [phone] [facility] [phone] Raheem [phone] Bedside Delivery ([facility]) [phone] [facility] OUTREACH ADVANCED: Call Information: Date and Time of Contact: 05/30/2024 4:52 PM Method of Contact: By Phone Contact Type: Prescriptions Contactor: Patient Contactee: [facility] OP Shipping/Pickup: Medicare B Refill?: No Medication Name: Myco sod 360mg, Prograf 0.2mg Delivery Method: Ship Delivery Location: Home Signature Required: No Receive/Pickup Date: 06/06/2024 Shipping Address: [address] [place] [address] Contact Info: Specialty (Yanci) [phone] [facility] [phone] [facility] [phone] Raheem [phone] Bedside Delivery ([facility]) [phone] documented in this encounter [facility] 05-13-2024 Note MS Cardiology - [facility] Subjective George Styles is a 54 [...] , Rfl: t (more content not included)... [facility] 03-24-2024 History of Present illness Narrative [facility] OUTREACH ADVANCED: Call Information: Date and Time of Contact: 03/24/2024 4:14 PM Method of Contact: By Phone Contact Type: Prescriptions Contactor: [facility] OP Contactee: Patient Contact Outcome: Left message Shipping/Pickup: Medication Name: Prograf 0.2mg pack Contact Info: Specialty ([place]anci) [phone] [facility] [phone] [facility] [phone] Raheem [phone] Bedside Delivery ([facility]) [phone] [facility] RX OUTREACH ADVANCED: Call Information: Date and Time of Contact: 03/28/2024 3:58 PM Method of Contact: By Phone Contact Type: Prescriptions Contactor: [facility] OP Contactee: Patient Contact Outcome: Left message and Call back later Shipping/Pickup: Medication Name: Mycophenolate, prograf Contact Info: Specialty (Yanci) [phone] [facility] [phone] [facility] [phone] Raheem [phone] Bedside Delivery ([facility]) [phone] [facility] RX OUTREACH ADVANCED: Call Information: Method of Contact: By Phone Contact Type: Prescriptions Contactor: Patient Contactee: [facility] OP Shipping/Pickup: Medicare B Refill?: No Medication Name: Mycopheolate 360mg and Prograf Delivery Method: Ship Delivery Location: Home Signature Required: No Receive/Pickup Date: 04/04/2024 Shipping Address: [address] [place] [address] [address] Contact Info: Specialty (Yanci) [phone] [facility] [phone] [facility] [phone] Raheem [phone] Bedside Delivery ([facility]) [phone] documented in this encounter [facility] 03-24-2024 History of Present illness Narrative [facility] OUTREACH ADVANCED: Call Information: Date and Time of Contact: 03/24/2024 4:14 PM Method of Contact: By Phone Contact Type: Prescriptions Contactor: [facility] Contactee: Patient Contact Outcome: Left message Shipping/Pickup: Medication Name: Prograf 0.2mg pack Contact Info: Specialty (Yanci) [phone] [facility] [phone] [facility] [phone] Raheem [phone] Bedside Delivery ([facility]) [phone] [facility] RX OUTREACH ADVANCED: Call Information: Date and Time of Contact: 03/28/2024 3:58 PM Method of Contact: By Phone Contact Type: Prescriptions Contactor: [facility] Contactee: Patient Contact Outcome: Left message and Call back later Shipping/Pickup: Medication Name: Mycophenolate, prograf Contact Info: Specialty ([place]) [phone] [facility] [phone] [facility] [phone] Raheem [phone] Bedside Delivery ([facility]) [phone] [facility] RX OUTREACH ADVANCED: Call Information: Method of Contact: By Phone Contact Type: Prescriptions Contactor: Patient Contactee: [facility] OP Shipping/Pickup: Medicare B Refill?: No Medication Name: Mycopheolate 360mg and Prograf Delivery Method: Ship Delivery Location: Home Signature Required: No Receive/Pickup Date: 04/04/2024 Shipping Address: [address] [place] [address] [address] Contact Info: Specialty ([place]) [phone] [facility] [phone] [facility] [phone] Raheem [phone] Bedside Delivery ([facility]) [phone] [facility] OUTREACH ADVANCED: Pre-Verification/Specialty Assessment/Disease [...] Within normal limits Contact Info: Specialty (Yanci) [phone] Jakob [phone] [facility] [phone] Raheem [phone] Bedside Delivery ([facility]) [phone] documented in this encounter [facility] 03-02-2024 History of Present illness [...] del of broth Contact Info: Specialty (Yanci) [phone] [facility] [phone] [facility] [phone] Raheem [phone] Bedside Delivery ([facility]) [phone] [facility] RX OUTREACH ADVANCED: Call Information: Date and Time of Contact: 03/02/2024 3:49 PM Method of Contact: By Phone Contact Type: Prescriptions Contactor: [facility] Contactee: Patient Contact Outcome: Left message and Follow-up Shipping/Pickup: Medication Name: Myco 360mg and Prograf 0.2mg Contact Info: Specialty ([place]) [phone] [facility] [phone] [facility] [phone] Raheem [phone] Bedside Delivery ([facility]) [phone] [facility] RX OUTREACH ADVANCED: Call Information: Date and Time of Contact: 03/02/2024 4:08 PM Method of Contact: By Phone Contact Type: Prescriptions Contactor: [facility] OP Contactee: Patient Shipping/Pickup: Medicare B Refill?: No Medication Name: Myco 360 / prograf 0.2 Delivery Method: Ship Delivery Location: Home Signature Required: No Receive/Pickup Date: 03/03/2024 Shipping Address: [address] [place] [address] [address] Contact Info: Specialty ([place]) [phone] [facility] [phone] [facility] [phone] Raheem [phone] Bedside Delivery ([facility]) [phone] documented in this encounter [facility] 02-26-2024 History of Present illness Narrative Patient [...] presents to the HF Clinic at the [facility] on 02/26/2024 for initial evaluation of [...] Left; Surgeon: Jyoti Bryant MD, PhD; Location: [facility] MAIN OR PLACEMENT NEPHROSTOMY CATHETER PERCUTANEOUS W/ IMAGE GUIDANCE 05/17/2022 Surgeon: Enzo Heart DO; Location: [facility] INTERVENTIONAL RADIOLOGY (VIR) LIVER TRANSPLANT, ORTHOTOPIC N/A 04/12/2020 Laterality: N/A; Surgeon: LU Palma; Location: [facility] SAME DAY SURGERY MAIN OR KIDNEY TRANSPLANT W/O GRAND [place]AGE NEPHRECTOMY N/A 04/12/2020 Laterality: N/A; Surgeon: LU Palma; Location: [facility] SAME DAY SURGERY MAIN OR OTHER [...] qd Antithrombotic: no Statin: no ICD: NA EXERCISE PLANNER: NA CV Test results: ECHOCARDIOGRAM 01/18/2024 (Final) [...] will be BP control. Candie Almaguer M.D. capacity planning engineer Advanced Heart Failure Program Division of Cardiovascular Medicine [facility] [email or web address] [phone] fax [phone] documented in this encounter [facility] 02-26-2024 Instructions Marsha Mckeon RN - 02/26/2024 9:30 AM EDT The following instructions were given today: Labs today Follow up with Dr. Almaguer as needed. Your after visit summary (AVS) is viewable in [facility] My [facility]. Call RN if you have cardiac questions/concerns M-F 8 to 4:30 ; office # [phone], option 6, then option 2. Guidelines for home management: 1. Continue to monitor weight first thing each morning. 2. Report to the CHF CLINIC ([phone]) any significant weight change. Remember that weight [...] to have labs/tests run outside of the [facility] and you do not hear from us 1-2 days after they are performed, you must call us to ensure we received the results. Office fax # [phone]. No news does not necessarily mean that your tests are normal, it could mean we did not get the results. For questions/updates: please provide your name with spelling, date of and question or update All calls are prioritized and responses researched, if possible, prior to calls being returned. Call Scheduling for any appointment/procedure verification or changes [phone], option 7 or [facility] Heart Schedulers at [phone], option 1. documented in this encounter [facility] 01-23-2024 Nurse Note Jakob wrap & kerlix [...] up needed prescriptions at [facility] pharmacy as listed on discharge summary. Patient denies any unanswered questions at this time. Patient has been discharged with all of their belongings, transported via wheelchair on oxygen to front entrance for brother to transport home on home oxygen supply. [facility] 01-23-2024 Miscellaneous Notes Jakob wrap & kerlix [...] understanding on picking up needed prescriptions at [facility] pharmacy as listed on discharge summary. 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] POST OPERATIVE DIAGNOSIS Post-Op Diagnosis Codes: * High output congestive heart failure [I50.83] PROCEDURE PERFORMED Procedure(s) (LRB): LIGATION ANGIOACCESS AVF (Left) Resection of large aneurysmic vein PRIMARY CLOSURE Yes INTRAOPERATIVE FINDINGS No significant abnormalities SURGEON Surgeons and Role: * Jyoti Bryant MD, PhD - Primary ANESTHESIOLOGIST Anesthesiologist: Celena Tiwari MD; Kehinde Gutierrez MD ULTRASONIC SOLDERER: Raheem Jasso APRN-ULTRASONIC SOLDERER Helminthologist Assisting: Mini Khan MD SURGICAL STAFF Package Clerk: Zoila Lawrence RN Relief Package Clerk: Marimar Saravia RN Relief Scrub: Briseyda Self [...] Axillary block. SURGEON(S): Jyoti Bryant MD, PHD SECTIONAL BELT MOLD ASSEMBLER: Mynor Fall MD ESTIMATED BLOOD LOSS: Minimal. [...] Jyoti Bryant MD, PHD ATTENDING AR/Constanza JOB: [id number] DOC: [id number] Patient has been asleep this shift. He [...] overnight coverage, Jasper Gastelum MD, via pager #[phone] Pt- George Styles. Sarah 1082. TM1. Was wondering if he can have his Melatonin order increased to 6mg. Per pt, he usually takes 8mg at home. -SAMI Duffy #[phone] Tati Charles RN Internal Medicine Daily Progress Note Patient: George Styles, 1970, [id number] Physician: Arelis Mera MD, PGY3, Pager #[phone], TM1 service Assessment/Plan: George Styles is a [...] home amlodipine 5mg CAD: non-obstructive CAD on [facility] 2018. - continue home aspirin 81mg [...] Mera MD Mr. Styles was admitted to [address] [place] [address]. On admission to [facility], from outside facility a dual RN initial assessment of skin condition was performed by Izzy Gutierrez RN and Leroy Singleton RN. Skin Assessment: Skin within defined limits:Yes Jose Score: 20 Wound Vision Public Safety Director images obtained: No LDA Added: No Based [...] documented in this encounter [facility] 01-23-2024 Nurse Note Home Oxygen [...] also required.) [facility] 01-23-2024 History of Present illness Narrative BRIEF [...] Daily Kelvin Pacheco MD, MBBS professor of forestry Transplant nephrology Surgery Post-Op Check Note George [...] monitor Leonel Harris DO General Surgery Pager [phone] CM went to bedside to talk with patient. Patient states he has home oxygen through [employer]. He uses 2.5 LNC around the clock. Patient states his brother will bring a tank for discharge. Anticipate patient will discharge tomorrow AM. Brother updated. Girish Oro RN, BSN Clinical Agricultural Equipment Design Engineer Please note that I am a float medical case manager and may not cover the same service every day. Please call the main Case Management office at [phone] for up-to-date coverage. Verified patients identity using [...] Daily Progress Note Patient: George Styles, 1970, [id number] Physician: Yury Ozuna MD, PGY1, Pager #[phone], VD1 service Assessment/Plan: George Styles is a 53 [...] by transplant surgery on 01/22 (NPO at al, updated type & screen) S/p Liver-Kidney Transplant [...] home amlodipine 5mg CAD: non-obstructive CAD on [facility] 2018. - continue home aspirin 81mg [...] with the Nutrition plan outlined in the Cager Operator s note. DVT prophylaxis with lovenox [...] note. Kelvin Pacheco MD, MBBS professor of forestry Transplant nephrology Patient seen and examined at [...] AC Kelvin Pacheco MD, LU professor of forestry Transplant nephrology Images from the original note were not included. Internal Medicine Daily Progress Note Patient: George Styles, 1970, [id number] Physician: Yury Ozuna MD, PGY1, Pager #[phone], PO4 service Assessment/Plan: George Styles is a 53 [...] home amlodipine 5mg CAD: non-obstructive CAD on [facility] 2018. - continue home aspirin 81mg [...] with the Nutrition plan outlined in the Cager Operator s note. DVT prophylaxis with lovenox [...] Provider: Zuly Bruno NP [facility] Other Comments: Patient reported his Last Home Dose of mycophenolate and tacrolimus was on 01/15/24 at 0700. Medications that need removed from Outside Medication Reconciliation list: Please remove all medications. Please feel free to contact me with any further questions. Name: Heidy Chatman Phone #: [phone] Date/Time: 01/19/2024 12:08 PM Time Spent: 15 minutes Associated attestation - Dorian Fidelina Ortiz [facility] - 01/19/2024 12:41 PM EST Department of Pharmacy Admission Medication Reconciliation Note Patient: George Styles Room/Bed: 1082/A I have reviewed the home medication list with the Maintenance Advisor. The home medication list status is: complete. All changes to the home medication list have been updated in [facility]HIS. Updated CAFETERIA ASSISTANT Med List: Prior to Admission Medications Prescriptions [...] questions. Name: Fidelina Alarcon Lydia Phone #: [phone] Date/Time: 01/19/2024 12:41 PM Internal Medicine Daily Progress Note Patient: George Styles, 1970, [id number] Physician: Yury Ozuna MD, PGY1, Pager #[phone], TM1 service Assessment/Plan: Acute Hypoxic Respiratory Insufficiency [...] home amlodipine 5mg CAD: non-obstructive CAD on [facility] 2018. - continue home aspirin 81mg [...] with the Nutrition plan outlined in the Cager Operator s note. DVT prophylaxis with lovenox [...] Daily Kelvin Pacheco MD, MBBS professor of forestry Transplant nephrology Internal Medicine Daily Progress Note Patient: George Styles, 1970, [id number] Physician: Yury Ozuna MD, PGY1, Pager #[phone], TM1 service Assessment/Plan: Updates: - continued diuresis [...] home amlodipine 5mg CAD: non-obstructive CAD on [facility] 2018. - continue home aspirin 81mg [...] with the Nutrition plan outlined in the Cager Operator s note. DVT prophylaxis with lovenox [...] note. 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 Provided emotional and spiritual support. Patient shared about: family support, medical course Day Care Assistant provided: - Supportive presence - Active listening - Validation of feelings/emotions Patient encouraged to request a automatic splicing machine operator as needed. Chaplains are available in-house 24 hours a day and 7 days a week. For urgent matters in [facility], please page [phone]. If the request is not urgent, please enter a consult. Consults are responded to within 24 hours. Senior Staff Day Care Assistant Angie Singh Mdiv, [facility] [phone] [email or web address] On-call TYLOR: director call center sales Raheem: 22/06 Pager ,[facility], and Brock Hernandez Pager [phone] 01/18/24 1342 Clinical Encounter Type Visited With Patient Visit Type Introduction Pastoral Time Spent 15 min Referral Other (See Comment) (rounding) Spiritual Assessment Emotional Observation Coping well;Anxiety Hope Observation Specific hope focus Support Observation By Family Interventions Provided Active listening;Supportive presence Facilitated Verbalization of feelings;Identifying support system;Identifying Sources of spiritual well-being Explored Expectations;Treatment decisions Triage Technician Education Triage Technician Service Available Yes Educated Patient Outcomes [...] interaction. Name: Fidelina Alarcon RPH Phone #: [phone] Date/Time: 01/18/2024 9:56 AM Discharge Planning Patient [...] Yes Name and Contact information: Gian Jensen ([phone]) Would you like to add additional adult [...] Is the patient from a facility or half-way?: No Patient lives with: Alone Living Environment: [...] oxygen?: Yes Oxygen Provider and Contact : [employer] Liter-Flow?: Order for oxygen use?: unknown at [...] patient on Anticoagulation? : No [id number] [place] [address] - [address] [facility] [address] [address] [employer]attle [employer] Does the patient or market survey representative express financial concerns? : No Employed?: [...] Plan 1. Identified self and role as Agricultural Equipment Design Engineer. 2. Confirmed and updated demographics and treatment team. 3. Agricultural Equipment Design Engineer will continue to follow with medical team for any other additional discharge needs. Kasandra DON RN [facility] [phone] *Please note I am float CM and work Thursday and Thursday every other week. Please call [phone] for assist in my absence. Internal Medicine Daily Progress Note Patient: George Styles, 1970, [id number] Physician: Yury Ozuna MD, PGY1, Pager #[phone], TM1 service Assessment/Plan: Updates: - continue diuresis [...] home amlodipine 5mg CAD: non-obstructive CAD on [facility] 2018. - continue home aspirin 81mg [...] ordered 2D echo. Kevin Sage MD, FASN Wood Tank Erector of Clinical Medicine [facility] documented in this encounter [facility] 01-23-2024 Plan of care note Patient has [...] Guideline (CPG) Outcome: Progressing Flowsheets (Taken 01/23/2024 0601) Related Risk Factors (Acute Pain): surgery Signs and Symptoms (Acute Pain): verbalization of pain descriptors [facility] 01-22-2024 Hospital Discharge instructions Arelis Mera MD [...] your doctor for further instructions. Please call [phone], Option 1 or [phone] to schedule your appointment with the Heart Failure Clinic. Arelis Mera MD - 01/22/2024 3:08 PM EST You can change your dressing 48 hours from the procedure The following attachments cannot be sent through Care Everywhere.Heart Failure: Avoiding Triggers (Sri Lankan)Heart Failure: Limiting Sodium (Sri Lankan)Pain and Pain Control ([facility]) ([place]ankan)documented in this encounter [facility] 01-22-2024 Surgery Postoperative evaluation and management note George Styles ([id number]) PRE OPERATIVE DIAGNOSIS High output congestive heart failure [I50.83] POST OPERATIVE DIAGNOSIS Post-Op Diagnosis Codes: * High output congestive heart failure [I50.83] PROCEDURE PERFORMED Procedure(s) (LRB): LIGATION ANGIOACCESS AVF (Left) Resection of large aneurysmic vein PRIMARY CLOSURE Yes INTRAOPERATIVE FINDINGS No significant abnormalities SURGEON Surgeons and Role: * Jyoti Bryant MD, PhD - Primary ANESTHESIOLOGIST Anesthesiologist: Celena Tiwari MD; Kehinde Gutierrez MD ULTRASONIC SOLDERER: Raheem M Dando, ECHOCARDIOGRAPHER-ULTRASONIC SOLDERER Helminthologist Assisting: Mini Khan MD SURGICAL STAFF Package Clerk: Zoila Lawrence RN Relief Package Clerk: Marimar Saravia RN Relief Scrub: Briseyda Self Scrub Person: Cinda Mai RN Resident Assisting: Leonel Harris DO Fellow: Miki Mcgowan MD, MBBS COMPLICATIONS None ESTIMATED BLOOD LOSS Minimal SPECIMENS No specimen sent * No specimens in log * Jyoti Bryant MD, PhD January 22, 2024 1:34 PM [facility] Work Phone: 01-22-2024 Nurse Note [...] nocturnally. A&Ox4. Nerve block left arm, elevated. [facility] 01-22-2024 Surgery Postoperative evaluation and [...] Axillary block. SURGEON(S): Jyoti Bryant MD, PHD SECTIONAL BELT MOLD ASSEMBLER: Mynor Fall MD ESTIMATED BLOOD LOSS: Minimal. [...] Jyoti Bryant MD, PHD ATTENDING SHANNON/Constanza JOB: [id number] DOC: [id number] [facility] 01-22-2024 Plan of care note [...] 194 Plan Of Care Reviewed With: patient [facility] 01-20-2024 Consult note Associated Order (s): IP CONSULT TO SURGERY - TRANSPLANT (RENAL) Images from the original note were not included. TRANSPLANT SURGERY CONSULT NOTE: Consult: 01/20/2024, 4:03 PM Reforestation Worker: Starla Morris MD Reason for Consult: Requesting Dr Carson Bryant for AVF revision/closure given new onset high output heart failure George Styles is a 53 y.o. male CURRENT HOSPITALIZATION LOS: Admit Date: 01/16/2024 [facility] Hospital LOS: 4 days George Styles [...] GUIDANCE 05/17/2022 Surgeon: Enzo Heart DO; Location: [facility] INTERVENTIONAL RADIOLOGY (VIR) LIVER TRANSPLANT, ORTHOTOPIC N/A 04/12/2020 Laterality: N/A; Surgeon: LU Palma; Location: [facility] SAME DAY SURGERY MAIN OR KIDNEY TRANSPLANT W/O GRAND PORTAGE NEPHRECTOMY N/A 04/12/2020 Laterality: N/A; Surgeon: LU [...] seen and staffed with Dr. Mcgowan fellow information technology analyst Thank you, Starla Morris MD Associated attestation - Jyoti Bryant MD, PhD - 01/22/2024 10:54 AM EST Beata Bryant MD, PhD, have independently seen and examined the patient, reviewed the labs, discussed the patient with the fellow/resident and agree with the note. [facility] Work Phone: 01-20-2024 Consult note Associated Order (s): IP CONSULT TO SURGERY - TRANSPLANT (RENAL) Images from the original note were not included. TRANSPLANT SURGERY CONSULT NOTE: Consult: 01/20/2024, 4:03 PM Reforestation Worker: Starla Morris MD Reason for Consult: Requesting Dr Carson Bryant for AVF revision/closure given new onset high output heart failure George Styles is a 53 y.o. male CURRENT HOSPITALIZATION LOS: Admit Date: 01/16/2024 [facility] Hospital LOS: 4 days George Styles [...] GUIDANCE 05/17/2022 Surgeon: Enzo Heart DO; Location: [facility] INTERVENTIONAL RADIOLOGY (VIR) LIVER TRANSPLANT, ORTHOTOPIC N/A 04/12/2020 Laterality: N/A; Surgeon: LU Palma; Location: [facility] SAME DAY SURGERY MAIN OR KIDNEY TRANSPLANT W/O [place]AND [place] NEPHRECTOMY N/A 04/12/2020 Laterality: N/A; Surgeon: LU Palma; Location: [facility] SAME DAY SURGERY MAIN OR OTHER [...] seen and staffed with Dr. Mcgowan fellow information technology analyst Thank you, Starla Morris MD Associated attestation [...] DAY SURGERY MAIN OR KIDNEY TRANSPLANT W/O [place] NEPHRECTOMY N/A 04/12/2020 Laterality: N/A; Surgeon: LU [...] (order for outpatient) Please SecureChat or Call ([phone]) for any questions. Await attending attestation for final recommendations. Hank Noel MD Division of Gastroenterology, Hepatology, and Nutrition Clinical Fellow, PGY-5 Pager: [phone] For urgent/stat calls or consults 5pm to 7am, please page the on-call GI fellow on QPlatformQa. [facility]--> Internal Medicine--> Gastroenterology, Hepatology, & Nutrition--> 1st Call Fel Alysia For urgent/stat calls or consults 7am to 5pm during the weekend, please page the on-call GI fellow on QGenda. [facility]--> Internal Medicine--> Gastroenterology, Hepatology, & Nutrition--> All Hep & East Wknd Cons Fel Day For follow up questions regarding this patient 7am to 5pm during the weekday, contact the Hepatology consults fellow or CARLOS A on QGenda. [facility]--> Internal Medicine--> Gastroenterology, Hepatology, & Nutrition--> All [...] this encounter [facility] 01-19-2024 Nurse Note 01/19/24 0900 Vitals ICU/PCU [...] Cordon RN [facility] 01-19-2024 Nurse Note Paged overnight coverage, Jasper Gastelum MD, via pager #[phone] Pt- George Styles. Sarah 1082. TM1. Was wondering if he can have his Melatonin order increased to 6mg. Per pt, he usually takes 8mg at home. -SAMI Duffy #[phone] Tati Charles RN [facility] 01-18-2024 Consult note Associated Order (s): IP [...] 04/12/2020 Laterality: N/A; Surgeon: LU Palma; Location: [facility] SAME DAY SURGERY MAIN OR KIDNEY TRANSPLANT W/O [place] NEPHRECTOMY N/A 04/12/2020 Laterality: N/A; Surgeon: LU Palma; Location: [facility] SAME DAY SURGERY MAIN OR OTHER [...] (order for outpatient) Please SecureChat or Call ([phone]) for any questions. Await attending attestation for final recommendations. Hank Noel MD Division of Gastroenterology, Hepatology, and Nutrition Clinical Fellow, PGY-5 Pager: [phone] For urgent/stat calls or consults 5pm to 7am, please page the on-call GI fellow on [employer]. [facility]--> Internal Medicine--> Gastroenterology, Hepatology, & Nutrition--> 1st Call Fel Alysia For urgent/stat calls or consults 7am to 5pm during the weekend, please page the on-call GI fellow on [employer]. [facility]--> Internal Medicine--> Gastroenterology, Hepatology, & Nutrition--> All Hep & East Wknd Cons Fel Day For follow up questions regarding this patient 7am to 5pm during the weekday, contact the Hepatology consults fellow or CARLOS A on [employer]. [facility]--> Internal Medicine--> Gastroenterology, Hepatology, & Nutrition--> All [...] for outpatient) Michael Estrada MD, MSc [facility] Work Phone: 01-16-2024 Plan of care note Internal Medicine Daily Progress Note Patient: George Styles, 1970, [id number] Physician: Arelis Mera MD, PGY3, Pager #[phone], TM1 service Assessment/Plan: George Styles is a [...] home amlodipine 5mg CAD: non-obstructive CAD on [facility] 2018. - continue home aspirin 81mg [...] MD, on rounds. Signed, Arelis Mera MD [facility] 01-16-2024 Nurse Note Mr. Styles was admitted to [address] [place] [address]. On admission to [facility], from outside facility a dual RN initial assessment of skin condition was performed by Izzy Gutierrez, RN and Leroy Singleton, SAMI. Skin Assessment: Skin within defined limits:Yes Jose Score: 20 Wound Vision Public Safety Director images obtained: No LDA Added: No Based [...] room closest to nurses station when available. [facility] 01-16-2024 History and physical note Images from the original note were not included. Internal Medicine Admission History & Physical Patient: George Styles, 1970, [id number] Physician: Timothy Joseph MD, PGY1, Pager #[phone], TM 1 service Date of face to [...] GUIDANCE 05/17/2022 Surgeon: Enzo Heart DO; Location: [facility] INTERVENTIONAL RADIOLOGY (VIR) LIVER TRANSPLANT, ORTHOTOPIC N/A 04/12/2020 Laterality: N/A; Surgeon: LU Palma; Location: [facility] SAME DAY SURGERY MAIN OR KIDNEY TRANSPLANT W/O [place] NEPHRECTOMY N/A 04/12/2020 Laterality: N/A; Surgeon: LU Palma; Location: [facility] SAME DAY SURGERY MAIN OR OTHER [...] itraconazole Fax results to: Dr. White - [phone] Transplant Neph - [phone] Gabapentin 400 MG capsule Sig: Take 1 [...] erythema: Skin: No jaundice or rash Neuro: lead mechanical engineer 3-7, 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 Strength grossly [...] home amlodipine 5mg CAD: non-obstructive CAD on [facility] 2018. - continue home aspirin 81mg daily Gout: continue home allopurinol 200mg daily BPH: continue home flomax 0.4mg daily Complexity. Obesity Body mass index is 32.8 kg/m . - Follow with PCP for dietary and lifestyle modifications. Any conditions listed below are present on admission unless otherwise specified. . DVT prophylaxis with lovenox Disposition: admitted to [facility] Code status is Full Staffed [...] Pierson, Luisa Steven, Renee Rivera, Daisha Max Surveillance System Monitor: José Miguel Garnica All Txt: 04/13/2020 (Kidney), [...] results found for: CYCLOSPORIN , CYCLOSPORIN2 , [id number] , CYCLORAND No results found for: SIROLIMUS [...] request in chart. Kevin Sage MD Pager [phone] [facility] 01-16-2024 History and physical note Images from the original note were not included. Internal Medicine Admission History & Physical Patient: George Styles, 1970, [id number] Physician: Timothy Joseph MD, PGY1, Pager #[phone], TM 1 service Date of face to [...] GUIDANCE 05/17/2022 Surgeon: Enzo Heart DO; Location: [facility] INTERVENTIONAL RADIOLOGY (VIR) LIVER TRANSPLANT, ORTHOTOPIC N/A 04/12/2020 Laterality: N/A; Surgeon: LU Palma; Location: [facility] SAME DAY SURGERY MAIN OR KIDNEY TRANSPLANT W/O [place] NEPHRECTOMY N/A 04/12/2020 Laterality: N/A; Surgeon: LU Palma; Location: [facility] SAME DAY SURGERY MAIN OR OTHER [...] itraconazole Fax results to: Dr. White - [phone] Transplant Neph - [phone] Gabapentin 400 MG capsule Sig: Take 1 [...] erythema: Skin: No jaundice or rash Neuro: lead mechanical engineer 3-7, 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 Strength grossly [...] home amlodipine 5mg CAD: non-obstructive CAD on [facility] 2018. - continue home aspirin 81mg daily Gout: continue home allopurinol 200mg daily BPH: continue home flomax 0.4mg daily Complexity. Obesity Body mass index is 32.8 kg/m . - Follow with PCP for dietary and lifestyle modifications. Any conditions listed below are present on admission unless otherwise specified. . DVT prophylaxis with lovenox Disposition: admitted to [facility] Code status is Full Staffed [...] Pierson, Luisa Steven, Renee Rivera, Daisha Max Surveillance System Monitor: José Miguel Garnica All Txt: 04/13/2020 (Kidney), [...] results found for: CYCLOSPORIN , CYCLOSPORIN2 , [id number] , CYCLORAND No results found for: SIROLIMUS [...] request in chart. Kevin Sage MD Pager [phone] documented in this encounter [facility] 01-12-2024 History of Present illness Narrative [facility] [...] Name: Prograf 0.2 MG Contact Info: Specialty ([place]) [phone] [facility] [phone] [facility] [phone] [facility] [phone] Bedside Delivery ([facility]) [phone] [facility] OP RX OUTREACH ADVANCED: Call Information: Date and Time of Contact: 01/25/2024 10:23 AM Method of Contact: By Phone Contact Type: Prescriptions Contactor: [facility] OP Contactee: Patient Contact Outcome: Left message (prograf myco) Contact Info: Specialty ([place]) [phone] [facility] [phone] [facility] [phone] [facility] [phone] Bedside Delivery ([facility]) [phone] documented in this encounter [facility] 01-12-2024 History of Present illness Narrative [facility] [...] Name: Prograf 0.2 MG Contact Info: Specialty ([place]) [phone] [facility] [phone] [facility] [phone] Raheem [phone] Bedside Delivery ([facility]) [phone] [facility] OP RX OUTREACH ADVANCED: Call Information: Date and Time of Contact: 01/25/2024 10:23 AM Method of Contact: By Phone Contact Type: Prescriptions Contactor: [facility] OP Contactee: Patient Contact Outcome: Left message (prograf myco) Contact Info: Specialty (Yanci) [phone] [facility] [phone] [facility] [phone] Raheem [phone] Bedside Delivery ([facility]) [phone] [facility] OP RX OUTREACH ADVANCED: Call Information: Date and Time of Contact: 01/27/2024 10:19 AM Method of Contact: By Phone Contact Type: Prescriptions Contactor: [facility] OP Contactee: Patient Contact Outcome: Left message (myco prograf) Contact Info: Specialty ([place]) [phone] [facility] [phone] [facility] [phone] Raheem [phone] Bedside Delivery ([facility]) [phone] documented in this encounter [facility] 01-12-2024 History of Present illness Narrative [facility] [...] Prograf 0.2 MG Contact Info: Specialty (Yanci) [phone] [facility] [phone] [facility] [phone] [facility] [phone] Bedside Delivery ([facility]) [phone] [facility] OP RX OUTREACH ADVANCED: Call Information: Date and Time of Contact: 01/25/2024 10:23 AM Method of Contact: By Phone Contact Type: Prescriptions Contactor: [facility] OP Contactee: Patient Contact Outcome: Left message (prograf myco) Contact Info: Specialty (Yanci) [phone] [facility] [phone] [facility] [phone] [facility] [phone] Bedside Delivery ([facility]) [phone] [facility] OP RX OUTREACH ADVANCED: Call Information: Date and Time of Contact: 01/27/2024 10:19 AM Method of Contact: By Phone Contact Type: Prescriptions Contactor: [facility] OP Contactee: Patient Contact Outcome: Left message (myco prograf) Contact Info: Specialty (Yanci) [phone] [facility] [phone] [facility] [phone] [facility] [phone] Bedside Delivery ([facility]) [phone] [facility] OP RX OUTREACH ADVANCED: Call Information: Date and Time of Contact: 02/01/2024 3:22 PM Contact Type: Prescriptions Contactor: [facility] OP Contactee: Patient Contact Outcome: Left message Shipping/Pickup: Medication Name: Mycophenolate 360mg and Prograf 0.2mg Pack Contact Info: Specialty (Yanci) [phone] Jakob [phone] [facility] [phone] Raheem [phone] Bedside Delivery ([facility]) [phone] documented in this encounter [facility] 01-06-2024 History of Present illness [...] The neurologist wanted to send him to [facility] neurology but it is out of [...] see neurologist in [facility] Immunocompromised (CMS/HCC) Hypertension ([facility]) No change in meds Check echo Relevant Orders Echocardiogram 2D complete Bilateral lower extremity edema Relevant Orders Echocardiogram 2D complete Shortness of breath Check ECHO Relevant Orders Echocardiogram 2D complete Other Visit Diagnoses 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) [phone] [facility] OP RX OUTREACH ADVANCED: Call Information: Date and Time of Contact: 10/23/2023 2:00 PM Method of Contact: By Phone Contact Type: Prescriptions Contactor: [facility] OP Contactee: Patient Contact Outcome: Left message and Call back later Shipping/Pickup: Medication Name: Mycophenolate 360mg and Prograf 0.2mg Contact Info: Specialty (Yanci) [phone] [facility] [phone] [facility] [phone] [facility] [phone] Bedside Delivery ([facility]) [phone] documented in this encounter [facility] 09-11-2023 Miscellaneous Notes Pt discharged home with [...] the oxygen during the night. pt will turkey picker his oxygen from [employer], 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 This RN made [...] Outcome: Ongoing Flowsheets (Taken 09/07/2023 0423 by Wlima Hay RN) Related Risk Factors (Infection, Risk/Actual): [...] Patient seen ambulating in the velazquez with GROUNDS SUPERVISOR. Patient was mildly short of breath on [...] & HR 114. Messaged Mainor Loomis, via [employer] secure chat, Temp 100.8. His tylenol order [...] short period of time. 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 Episode [...] Critical Care Medicine Message Mainor Loomis, via [employer] secure chat, Good evening, just an FYI, [...] short period of time. 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 This [...] [address] Loera here also (marine technician) Dr. Diaz aware of pt's increased [...] regular sleep/rest pattern promoted Sent a secure [employer] chat to Rosi LUZ concerning patient's temp [...] Medicine-Pediatrics, PGY-2 Mr. Styles was admitted to [address] [place] [address]. On admission to [facility], from home a [...] documented in this encounter [facility] 09-11-2023 History of Present illness Narrative Provided follow-up emotional and spiritual support. Patient shared about rosemary of discharge and looking forward to seeing family Day Care Assistant provided: - Supportive presence - Active listening - Validation of feelings/emotions Patient encouraged to request a automatic splicing machine operator as needed. Chaplains are available in-house 24 hours a day and 7 days a week. For urgent matters in [facility], please page [phone]. If the request is not urgent, please enter a consult. Consults are responded to within 24 hours. Senior Staff Day Care Assistant Angie Singh Mdiv, [facility] [place] [phone] [email or web address] 22/06 On-call [place]: [phone] 22/06 Pager ,KIKE, and Brock Hernandez Pager [phone] 09/11/23 1430 Clinical Encounter Type Visited With Patient Visit Type Follow-up Pastoral Time Spent 15 min Referral Other (See Comment) (rounding) Spiritual Assessment Spiritual Observation Spirituality helpful Emotional Observation Coping well Hope Observation Specific hope focus Support Observation By Family Interventions Provided Active listening;Supportive presence Facilitated Verbalization of feelings Explored Expectations Triage Technician Education Triage Technician Service Available Yes Educated Patient Plan of Care Continue Visiting PRN Images from the original note were not included. [facility] Note: Non-Verbal Med Rec [facility] received [facility] following discharge prescription(s): Total cost is $0. I have reviewed the Discharge Rx Reconciliation Report. The discharge prescription(s) will be delivered to the patient on 09/11/2023. Dimitrios Gurrola RPh,PharmD Specialty ([place]) [phone] [facility] [phone] [facility] Bedside Delivery [phone] [facility] [phone] [facility] Bedside Delivery [phone] [facility] [phone] [facility] Bedside Delivery [phone] [place] [phone] [place] [phone] Internal Medicine Daily Progress Note Patient: George Styles, 1970, [id number] Physician: Evan Kelly MD, PGY-1, TM1 service Subjective/Interval History: Patient continues to require oxygen overnight for desaturations. With insurance limitations, only accepting agency to provide home oxygen backed out. After calling them to discuss, Lynn stated she would be willing to have patient drive to their facility to turkey picker supplies, however they close at 5pm. 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 - continue home aspirin 81mg [...] 5.05 (H) 11/19/2018 Kevin Sage MD, MADISONN Wood Tank Erector of Clinical Medicine [facility] Images from the original note were not included. Final Discharge Planning and Transportation Final Discharge Planning Discharge Disposition: Home Services at Discharge: Outpatient clinical services (ie: lab draws, transfusions, injectables) (Home Oxygen by [email or web address]) Selected Continued Care - Admitted Since 08/28/2023 Durable Medical Equipment Coordination complete. Service Provider Selected Services Address Phone Fax Patient Preferred [email or web address] [facility] [employer] Durable Medical Equipment [facility] [place] [phone] Internal Comment last updated by Lora Lawrence RN 09/10/2023 9502 Correct contact information: [email or web address] [address] [place] [address] [place] [address] leg assembler- you do not need to call at discharge, I already notified the company. Addendum 1523 [email or web address] notified this CM they are out of patient's insurance area and will not be able to service this patient at time of discharge. Provider notified. Addendum 0308 Dr [facility] and she said they are willing to accept patient if the patient would drive to the [place] office and turkey picker the supplies. Patient is willing to [...] Lora Colón RN, MSN, CCM, CMCN Clinical Agricultural Equipment Design Engineer- R10 Transplant #[phone] Department of Pharmacy Transplant Note Patient: George [...] dose adjustment Name: Matt Kramer RPh,PharmD Phone: [phone] Date/Time: 09/10/2023 11:33 AM This CM sent referral via [employer] for O2 concentrator to 4 agencies Start date today Timer set for 1330 [facility] [employer] Addendum 1332 One accepting company reserved in [employer] [facility] [address] [place] [address] [place] [address] Lora Colón RN, MSN, CCM, CMCN Clinical Agricultural Equipment Design Engineer- [facility] Transplant #[phone] NUTRITION FOLLOW-UP Nutrition Plan of Care: 1. Continue current diet order. 2. No oral supplements warranted at this time. 3. Monitor for significant weight changes. Monitor GI, skin integrity. 4. Monitor and encourage po intakes with goal of average po being 75-100%. 5. hydroelectric systems technician to follow. ___ Met with patient [...] time. Will continue to monitor. RHIANNON BirminghamR Pager:[phone] Transplant Infectious Disease (Team 3) Progress Note [...] sign off. Please Epic message or page [phone] with questions. 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 - continue home aspirin 81mg [...] to follow. Please Epic message or page [phone] with questions. 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 - continue home aspirin 81mg daily, holding atorvastatin 20mg daily Gout: continue home allopurinol 200mg daily BPH: continue home flomax 0.4mg daily DVT PPX: SQH Code Status: Full Code Disposition: Pending clinical course. Anticipate eventual discharge home. Discussed with team and attending, Kevin Sage MD, on rounds. 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 - continue home aspirin 81mg [...] 5.05 (H) 11/19/2018 Kevin Sage MD, SERA Wood Tank Erector of Clinical Medicine [facility]plant [facility] Transplant Infectious Disease (Team [...] to follow. Please Epic message or page [phone] with questions. Ann Marie Haskins MD PGY-4, [...] he continues to improve. Please message via [employer] secure chat or page with any questions or concerns. Evan White DO Wood Tank Erector Division of Infectious Disease Transplant Infectious Disease [...] to follow. Please Epic message or page [phone] with questions. Evan White DO Transplant Infectious Diseases Images from the original note were not included. Pulmonary/Critical Care Medicine Daily Progress Note Reason for Consultation: bronch for infectious workup Requesting Physician: Dr. Sage CURRENT HOSPITALIZATION: Admit Date: 08/28/2023 [facility] Hospital LOS: 9 days Impression 1. [...] and interpreted reviewed the radiographic data in [facility] 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 - continue home aspirin 81mg [...] 5.05 (H) 11/19/2018 Kevin Sage MD, MADISONN Wood Tank Erector of Clinical Medicine [facility]plant [facility] Images from the original note were not included. Pulmonary/Critical Care Medicine Daily Progress Note Reason for Consultation: bronch for infectious workup Requesting Physician: Dr. Sage CURRENT HOSPITALIZATION: Ad[facility]: [facility] LOS: 8 days Impression 1. [...] and interpreted reviewed the radiographic data in [employer]. Acute Occupational Therapy Evaluation Prior to Admission [...] Assessment: Transfer Assessment: Sit to Stand Transfer Page Level: Sit->Stand: independent Skilled Intervention/Details: Sit->Stand: x1 from EOB, x1 from toilet Stand to Sit Transfer Page Level: Stand->Sit: independent Skilled Intervention/Details: Stand->Sit: x1 to toilet, x1 to EOB Functional Mobility: Functional Mobility Page Level: Functional Mobility/Gait: independent Ambulation Distance (Feet): [...] No Assistance Eatin - No Assistance CURRENT AM-[facility] Activity Raw Score: 21 CURRENT AM-PAC [...] Intact Mobility Assessment: Supine to Sit Mobility Page Level: Supine->Sit: modified [place] Bed Features/Set-up: Supine->Sit: Head of bed elevated Sit to Supine Mobility Page Level: Sit->Supine: not tested Balance: Sitting Balance [...] environment. Transfer Assessment: Sit to Stand Transfer Page Level: Sit->Stand: independent Skilled Intervention/Details: Sit->Stand: From EOB x 2 without difficulty. Stand to Sit Transfer Page Level: Stand->Sit: independent Assistive Device: Stand->Sit: armed chair Skilled Rationale: Verbal cues, Positioning Gait/Functional Mobility: Gait Assessment Page Level: Gait: stand-by assist Assistive Device: Gait: rollator Ambulation Distance (Feet): 400 Gait Deviations Identified: decreased grace, decreased gait speed Gait Skilled Rationale: verbal, upright posture, increase step length, increase foot clearance Skilled Intervention/Details - Gait: Reasonable foot clearnce without loss of balance but endorsing dyspnea as 6-7/10. 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 - continue home aspirin 81mg [...] 5.05 (H) 11/19/2018 Kevin Sage MD, SERA Wood Tank Erector of Clinical Medicine [facility] Comprehensive Transplant [facility] Transplant Infectious Disease (Team [...] to follow. Please Epic message or page [phone] with questions. Evan White DO Transplant Infectious Diseases Images from the original note were not included. Internal Medicine Daily Progress Note Patient: George Styles, 1970, [id number] Physician: Evan Kelly MD, PGY-1, TM1 service 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 - continue home aspirin 81mg [...] P 450 system Kevin Sage MD, SERA Wood Tank Erector of Clinical Medicine [facility] Transplant [facility] ERT Note: ERT called [...] MD, PhD Internal Medicine and Pediatrics PGY-3 [facility] Brief plan [...] MD, PhD Internal Medicine and Pediatrics PGY-3 [facility] Transplant Infectious [...] to follow. Please Epic message or page [phone] with questions. Evan White DO Transplant Infectious Diseases Internal Medicine Daily Progress Note Patient: George Styles, 1970, [id number] Physician: Evan Kelly MD, PGY-1, TM1 service [...] s/p combined Liver-kidney transplant on 04/13/20. 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 - continue home aspirin 81mg [...] 5.05 (H) 11/19/2018 Kevin Sage MD, MADISONN Wood Tank Erector of Clinical Medicine [facility] Comprehensive Transplant Center Internal Medicine Daily Progress Note Patient: George Styles, 1970, [id number] Physician: Evan Kelly MD, PGY-1, TM1 service [...] s/p combined Liver-kidney transplant on 04/13/20. 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 - continue home aspirin 81mg [...] 5.05 (H) 11/19/2018 Kevin Sage MD, FASN Wood Tank Erector of Clinical Medicine [facility] Comprehensive Transplant Center Progression of Care Note [...] follow up Lora Colón RN, MSN, CCM, [facility] Clinical Agricultural Equipment Design Engineer- R10 Transplant #[phone] Made introductory visit with patient. Provided emotional and spiritual support. Patient shared about: - Source of Rosemary: Camping/Fishing/Family - Spirituality/Church Affiliation: raised Mormon - Family Support/history - Experience with illness/hospital course - Hopes for healing/future Day Care Assistant provided: - Supportive presence - Active listening - Validation of feelings/emotions - Pledged prayer Patient encouraged to request a automatic splicing machine operator as needed. Chaplains are available in-house 24 hours a day and 7 days a week. For urgent matters in [facility], please page [phone]. If the request is not urgent, please enter a consult. Consults are responded to within 24 hours. Senior Staff Day Care Assistant Angie Singh Mdiv, [facility] [place] [phone] [email or web address] 22/06 On-call [place]: [phone] 22/06 Pager KIKE SNIDER, and Brock Hernandez Pager [phone] 09/02/23 6671 Clinical Encounter Type Visited With Patient Visit Type Introduction Pastoral Time Spent 15 min Referral Other (See Comment) (rounding) Spiritual Assessment Spiritual Observation Spirituality helpful Emotional Observation Coping well Hope Observation Specific hope focus Support Observation By Family Interventions Provided Active listening;Supportive presence Facilitated Verbalization of feelings Explored Expectations Triage Technician Education Triage Technician Service Available Yes Educated Patient Outcomes Patient Outcomes Reduced distress Plan of Care Continue Visiting PRN NUTRITION RISK SCREENING NOTE Nutrition Plan of Care: 1. Continue current diet order. 2. No oral supplements warranted at this time. 3. Monitor for significant weight changes. Monitor GI and skin integrity. 4. Monitor and encourage po intakes with goal of average po being 100%. 5. hydroelectric systems technician to follow. George Styles is a 53 y.o. 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 His post-transplant course was noteworthy for nephrostomy tube (05/17/2022-09/10/2022) due to concern for ureteral stone. He presents as a direct admission for fever, cough, for infectious workup. Pt unavailable and information obtained via chart review Counselor Manager Screening Pt's appetite is good. Pt [...] time. Will continue to monitor. RHIANNON [place]R Pager:[phone] Internal Medicine Daily Progress Note Patient: George Styles, 1970, [id number] Physician: Evan Kelly MD, PGY-1, TM1 service [...] s/p combined Liver-kidney transplant on 04/13/20. 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 - continue home aspirin 81mg [...] as outlined above. Kevin Sage MD Pager [phone] Summary: Pharmacy Med Rec Department of Pharmacy [...] Supply: 90 Refills: 0 Provider: Zuly Bruno TURKEY PICKER [facility]acy: [facility] Other Comments: Patient reported his Last Home Dose of mycophenolate & tacrolimus was on 08/28/23 at 0900. Patient reported he was taking Bactrim and benzonatate for fevers and a cough he was having. Please feel free to contact me with any further questions. Name: Heidy Chatman Phone #: [phone] Date/Time: 09/01/2023 2:01 PM Time Spent: 15 minutes Associated attestation - Matt Kramer RPh,PharmD - 09/01/2023 2:28 PM EDT Department of Pharmacy Admission Medication Reconciliation Note Patient: George Styles Room/Bed: 1062/A I have reviewed the home medication list with the Maintenance Advisor. All changes to the home medication list have been updated in IHIS. Updated CAFETERIA ASSISTANT Med List: Prior to Admission Medications Prescriptions [...] questions. Name: Matt Kramer RPh,Frankie Phone #: [phone] Date/Time: 09/01/2023 2:28 PM Transplant Infectious Disease [...] to follow. Please Epic message or page [phone] with questions. Evan White DO Transplant Infectious Diseases Internal Medicine Daily Progress Note Patient: George Styles, 1970, [id number] Physician: Evan Kelly MD, PGY-1, TM1 service [...] s/p combined Liver-kidney transplant on 04/13/20. 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 - continue home aspirin 81mg [...] 5.05 (H) 11/19/2018 Kevin Sage MD, SERA Wood Tank Erector of Clinical Medicine [facility] Comprehensive Transplant Center Discharge Planning Patient Assessment [...] Yes Name and Contact information: Gian Styles ([phone]) Reviewed and Updated in Demographics? : Yes Outpatient Providers Does patient have a primary care physician? : Yes When was the patient's last PCP visit?: > 30 days Does the patient follow any specialists?: No Reviewed and updated Care Team?: Yes Patient Care Team: Zuly Bruno CNP as PCP - General Environment/Caregivers Is the patient from a facility or half-way?: No Patient lives with: Alone Living Environment: [...] patient on Anticoagulation? : No [id number] [place] [address] - [address] [address] [employer] Does the patient or market survey representative express financial concerns? : No Employed?: [...] Plan 1. Identified self and role as Agricultural Equipment Design Engineer. 2. Confirmed and updated demographics and treatment team. 3. Agricultural Equipment Design Engineer will continue to follow with medical team/pt for any other additional discharge needs. Kasandra DON RN [facility] [phone] *Please note I am float and work Thursday and Thursday every other week. Please call [phone] for assist in my absence. Internal Medicine Daily Progress Note Patient: George Styles, 1970, [id number] Physician: Evan Kelly MD, PGY-1, TM1 service [...] s/p combined Liver-kidney transplant on 04/13/20. 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 - continue home aspirin 81mg [...] 5.05 (H) 11/19/2018 Kevin Sage MD, MADISONN Wood Tank Erector of Clinical Medicine [facility] Transplant [facility] Internal Medicine Daily Progress Note Patient: George Styles, 1970, [id number] Physician: Laurel Serrano MD, PhD, PGY-3, TM1 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 - continue home aspirin 81mg daily, atorvastatin 20mg daily Gout: continue home allopurinol 200mg daily BPH: continue home flomax 0.4mg daily DVT PPX: SQH Code Status: Full Code Disposition: Pending clinical course. Anticipate eventual discharge home. Discussed with team and attending, Kevin Sage MD, on rounds. Signed, Laurel Serrano MD, PhD documented in this encounter [facility] 09-10-2023 Hospital Discharge instructions Laurel [...] a sleep doctor. You will need to turkey picker the oxygen concentrator when you leave [...] this encounter [facility] 09-01-2023 Consult note Associated Order (s): IP CONSULT TO PULMONOLOGY Pulmonary Medicine Inpatient Consultation Reason for Consultation: bronch for infectious workup Requesting Physician: Dr. Sage Pulmonary Attending Physician: Dr. Diaz CURRENT HOSPITALIZATION: Admit Date: 08/28/2023 [facility] Hospital LOS: 4 days Impression/Recommendations: George [...] Recommendations: - Plan to bronch tomorrow morning. NPO@CO, order placed - would repeat HIV, last [...] short period of time. 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 Other histories as documented in [...] had any ill contacts. He [facility] [place] [facility]. REVIEW OF SYSTEMS A complete [...] GUIDANCE 05/17/2022 Surgeon: Enzo Heart DO; Location: [facility] INTERVENTIONAL RADIOLOGY (VIR) LIVER TRANSPLANT, ORTHOTOPIC N/A 04/12/2020 Laterality: N/A; Surgeon: LU Palma; Location: [facility] SAME DAY SURGERY MAIN OR KIDNEY TRANSPLANT W/O GRAND [place]AGE NEPHRECTOMY N/A 04/12/2020 Laterality: N/A; Surgeon: LU Palma; Location: [facility] SAME DAY SURGERY MAIN OR OTHER [...] [place] MD I can be reached via [employer] secure message (preferred) or Pager #[phone] documented in this encounter [facility] 08-28-2023 History and physical note Images from the original note were not included. Internal Medicine Admission History & Physical Patient: George Styles, 1970, [id number] Physician: Aric Turner MD, PGY1, Pager #[phone], JR service Date of face to face patient [...] So he went to see the transplant entrepreneurship program director. He was found elevated Cr and asked [...] Appetite is ok now. Urine is about 8336-4744 ml every day. Stool every day, no [...] 04/12/2020 Laterality: N/A; Surgeon: LU Palma; Location: [facility] SAME DAY SURGERY MAIN OR KIDNEY TRANSPLANT W/O [place] NEPHRECTOMY N/A 04/12/2020 Laterality: N/A; Surgeon: LU Palma; Location: [facility] SAME DAY SURGERY MAIN OR OTHER [...] s/p combined Liver-kidney transplant on 04/13/20. 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 - continue aspirin 81mg daily, [...] Pierson, Luisa Steven, Renee Rivera, Daisha Max Surveillance System Monitor: José Miguel Garnica All Txt: 04/13/2020 (Kidney), [...] results found for: CYCLOSPORIN , CYCLOSPORIN2 , [id number] , CYCLORAND No results found for: SIROLIMUS [...] Rest as above. Kevin Sage MD Pager [phone] documented in this encounter [facility] 08-28-2023 History of Present illness Narrative Images from the original note were not included. 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 Surveillance System Monitor: Anayeli Burt Date of Liver Transplant: 04/13/2020 (Kidney), 04/13/2020 (Liver) 3 years 4 months post Liver/Kidney Transplant Primary Disease: Hypertensive Nephrosclerosis Transplant Envelope Folding Machine Adjuster: Erma Roe/ Daisha Max Primary Care physician: [...] and faMOTIdine === None Specified Preferred Lab: [facility] Change in lab frequency / new [...] every 12 hours. ADDITIONAL INFORMATION: None Specified, [id number] [place] [address] - [address] [address] [facility] [address], [address] [place] [facility] [id number] [place] [address] [address] [facility] 201 [facility] [address] [facility] [address], [place] 111 [facility] [address] ROS and SCREEN: Chest Pain: negative Cough: [...] PHYSICIAN: I saw George Styles at the [facility] on 08/28/2023. Patient is a 53 y.o. 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 Steve Latham MD escalator mechanic Division of Nephrology [facility] documented in this encounter [facility] 08-28-2023 Instructions Mainor Busby RN - 08/28/2023 2:15 PM EDT - Admission for fevers, cough, and night sweats documented in this encounter [facility] 08-19-2023 History of Present illness Narrative [facility] RX OUTREACH ADVANCED: Call Information: Date and Time of Contact: 08/19/2023 2:52 PM Method of Contact: By Phone Contact Type: Prescriptions Contactor: [facility] Contactee: Patient Shipping/Pickup: Medicare B Refill?: No Medication Name: Tacro 0.5mg Delivery Method: Air Delivery Location: Home Signature Required: No Mailing/Pickup Date: 08/25/2023 Shipping Address: [address] [place] [address] [address] Contact Info: Specialty ([place]) [phone] Jakob [phone] [facility] [phone] Raheem [phone] Bedside Delivery ([facility]) [phone] documented in this encounter [facility] 06-12-2023 History of Present illness Narrative Images from the original note were not included. George Styles is a 53 y.o. 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 No longer follows with a local entrepreneurship program director. History of Present Illness: Since George was [...] and lab results. Rebeca Gutierrez MSN, RN, ECHOCARDIOGRAPHER-BC, CCTN Certified Nurse Practitioner [facility] [address] [facility] [address] documented in this encounter [facility] 06-12-2023 Instructions JEANNA Hess - 06/12/2023 3:00 PM EDT No change in immunosuppression. [facility] History of Present illness Narrative [facility] OUTREACH ADVANCED: Call Information: Method of Contact: By Phone Contact Type: Prescriptions Contactor: [facility] Contactee: Patient Contact Outcome: Left message Shipping/Pickup: Medication Name: Mycophenolate sod 180 mg Contact Info: Specialty ([place]anc[place]) [phone] [facility] [phone] [facility] [phone] Raheem [phone] Bedside Delivery ([facility]) [phone] [facility] OUTREACH ADVANCED: Call Information: Date and Time of Contact: 06/12/2023 9:43 AM Method of Contact: By Phone Contact Type: Prescriptions Contactor: [facility] Contactee: Patient Contact Outcome: Left message and Follow-up Shipping/Pickup: Medicare B Refill?: No Medication Name: Myco 180 Contact Info: Specialty ([place]) [phone] [facility] [phone] [facility] [phone] Raheem [phone] Bedside Delivery ([facility]) [phone] [facility] OUTREACH ADVANCED: Call Information: Date and Time of Contact: 06/12/2023 10:08 AM Method of Contact: By Phone Contact Type: Prescriptions Contactor: [facility] Contactee: Patient Shipping/Pickup: Medicare B Refill?: No Medication Name: Mycophenolate 180mg DR Delivery Method: Air Delivery Location: Home Signature Required: No Mailing/Pickup Date: 06/17/2023 Shipping Address: [address] [place] [address] Contact Info: Specialty (Yanci) [phone] [facility] [phone] [facility] [phone] Raheem [phone] Bedside Delivery ([facility]) [phone] documented in this encounter [facility] 03-12-2023 History of Present illness Narrative [facility] OUTREACH ADVANCED: Call Information: Date and Time of Contact: 03/12/2023 10:34 AM Method of Contact: By Phone Contact Type: Prescriptions Contactor: [facility] Contactee: Patient Shipping/Pickup: Medicare B Refill?: No Medication Name: Mycophenoloate sod 360 mg prednisone 5mg Delivery Method: Air Delivery Location: Home Signature Required: No Mailing/Pickup Date: 03/16/2023 Shipping Address: [address] [place] [address] Contact Info: Specialty (Yanci) [phone] [facility] [phone] [facility] [phone] Raheem [phone] Bedside Delivery ([facility]) [phone] [facility]REACH ADVANCED: Call Information: [...] No Mailing/Pickup Date: 03/19/2023 Shipping Address: [address] Contact Info: Specialty ([place]) [phone] [facility] [phone] [facility] [phone] [facility] [phone] Bedside Delivery ([facility]) [phone] documented in this encounter [facility] 03-10-2023 History of Present illness Narrative [facility] OUTREACH ADVANCED: Call Information: Date and Time of Contact: 03/10/2023 12:00 PM Method of Contact: By Phone Contact Type: Prescriptions Contactor: [facility] Contactee: Patient Contact Outcome: Left message and Call back later Shipping/Pickup: Medication Name: Mycophenolate ; Tacrolimus Contact Info: Specialty ([place]) [phone] [facility] [phone] [facility] [phone] [facility] [phone] Bedside Delivery ([facility]) [phone] documented in this encounter [facility] 03-10-2023 History of Present illness Narrative [facility] OUTREACH ADVANCED: Call Information: Date and Time of Contact: 03/10/2023 12:00 PM Method of Contact: By Phone Contact Type: Prescriptions Contactor: [facility] Contactee: Patient Contact Outcome: Left message and Call back later Shipping/Pickup: Medication Name: Mycophenolate ; Tacrolimus Contact Info: Specialty ([place]) [phone] [facility] [phone] [facility] [phone] [facility] [phone] Bedside Delivery ([facility]) [phone] [facility] OUTREACH ADVANCED: Call Information: Date and Time of Contact: 03/12/2023 10:32 AM Method of Contact: By Phone Contact Type: Prescriptions Contactor: [facility] Contactee: Patient Contact Outcome: Left message Shipping/Pickup: Medication Name: Mycophenolate sodium (MYFORTIC) 180 MG Tab tacrolimus 0.5 mg Contact Info: Specialty ([place]) [phone] Jakob [phone] [facility] [phone] Raheem [phone] Bedside Delivery ([facility]) [phone] documented in this encounter [facility] 01-16-2023 History of Present illness Narrative -Referring Provider for today's consult: Daisha Max DO -Primary Care Provider: Zuly Bruno History of Present Illness George Styles is a 52 y.o. male who presents to the [facility] Transplant Hepatology Clinic today for follow-up [...] GUIDANCE 05/17/2022 Surgeon: Enzo Heart DO; Location: [facility] INTERVENTIONAL RADIOLOGY (VIR) LIVER TRANSPLANT, ORTHOTOPIC N/A 04/12/2020 Laterality: N/A; Surgeon: LU Palma; Location: [facility] SAME DAY SURGERY MAIN OR KIDNEY TRANSPLANT W/O [place] NEPHRECTOMY N/A 04/12/2020 Laterality: N/A; Surgeon: LU Palma; Location: [facility] SAME DAY SURGERY MAIN OR OTHER [...] 0.3 12/29/2022 Explant Pathology Pathologic Diagnosis A. [place] liver, orthotopic liver transplant resection (1458 gram): [...] A/P with IV contrast (06/27/2022): 1. Both ruby kidneys are atrophic with improvement in right-sided [...] frequent nighttime urination, etc). Daisha Max DO [employer] Erector Gastroenterology, Hepatology and Nutrition [facility] Pager: [phone] Images from the original note were not included. 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 Surveillance System Monitor: Anayeli Burt Date of Liver Transplant: 04/13/2020 (Kidney), 04/13/2020 (Liver) 2 years, 8 months post Liver/Kidney Transplant Primary Disease: Hypertensive Nephrosclerosis Transplant Envelope Folding Machine Adjuster: Steve Latham Primary Care physician: Zuly Bruno [...] levels: No results found for: CYCLOSPORIN, CYCLOSPORIN2, EBLIOHFAI5VC, CYCLORAND No components found for: CYCLOSPORINE, 2HR [...] hours. ADDITIONAL INFORMATION: None Specified [id number] [place] [address] - [address] [facility] [address] [facility] [address] [facility] [address] [facility] [address] [place] [address] [id number] - [place] [id number] - [address] [facility] 201 [place] [id number] [facility] [address] [facility] [address], [facility] 111 [facility] [address] ROS and SCREEN: Chest Pain: negative Cough: [...] this encounter [facility] 01-16-2023 Instructions José Miguel Garnica RN - 01/16/2023 9:40 AM EST - Labs Every 2 months - Discuss night time urination with your PCP - Schedule Colonoscopy through PCP - Follow up in 1 year documented in this encounter [facility] 09-10-2022 History of Present illness Narrative UROLOGY [...] and no hydronephrosis. Some reflux up the ruby right ureter but good drainage of both transplant and ruby ureter to the bladder. Nephrostomy tube was [...] transplant, orthotopic (N/A, 04/12/2020); kidney transplant w/o ruby nephrectomy (N/A, 04/12/2020); and placement nephrostomy catheter [...] Negative for , diarrhea, constipation Genitourinary: See SITKA Neurological: Negative for headaches. Lymph/Heme: Negative for [...] x 4, Normal strength. No edema. Skin: Lexa, warm, and dry. There are no rashes [...] and no hydronephrosis. Some reflux up the ruby right ureter but good drainage of both transplant and ruby ureter to the bladder. Nephrostomy tube was [...] documented in this encounter [facility] 07-07-2022 History of Present illness [...] the table and escorted to medical receptionist medical assistant where they made a follow up. [...] a DDRT to the [facility] in 2019. Nephrostomy tube placed 05/17/22 [...] to have transplant ureter with anastomosis to ruby right ureter. Nephrostogram without filling defects and no hydronephrosis. Some reflux up the ruby right ureter but good drainage of both transplant and ruby ureter to the bladder. Nephrostomy tube was [...] documented in this encounter [facility] 06-27-2022 History of Present [...] transplant, orthotopic (N/A, 04/12/2020); kidney transplant w/o ruby nephrectomy (N/A, 04/12/2020); and placement nephrostomy catheter [...] Negative for , diarrhea, constipation Genitourinary: See SITKA Neurological: Negative for headaches. Lymph/Heme: Negative for [...] x 4, Normal strength. No edema. Skin: Lexa, warm, and dry. There are no rashes [...] a DDRT to the [facility] in 2019. Nephrostomy tube placed 05/17 [...] needed. documented in this encounter [facility] 06-27-2022 History and physical note Patient was evaluated in clinic as a nurse visit. Please refer to Rena Brewster's note. [facility] Work Phone: 06-27-2022 History and physical note Patient was evaluated in clinic as a nurse visit. Please refer to Rena Brewster's note. documented in this encounter [facility] 06-27-2022 History of Present illness Narrative TEACHING REGARDING TX NEPH COMPLETED-NEPH TUBE SITE DRY AND INTACT-CLEAR YELLOW URINE IN THE BAG-INSTRUCTED ABOUT FLUSHING, BAG CHANGING ETC. NUMEROUS QUESTIONS ASKED AND ANSWERED-VERBALIZED UNDERSTANDING documented in this encounter [facility] 06-18-2022 Note EXAMINATION: CT ABD/ PELVIS WO [...] mass or enlargement. KIDNEYS: Marked atrophy of ruby kidneys. Transplant right pelvic kidney with percutaneous [...] MÓNICA JIMENEZ Date: 2022-06-18 13:53 [facility] 06-12-2022 Instructions Anayeli Christianson RN - 06/12/2022 3:21 PM EDT Do not take apart/disrupt nephrostomy tube system. Call Interventional Radiology and/or on-call transplant nurse [phone] for instruction if need to flush (clot or decreased flow). Take cipro 500mg, one tablet, twice per day for 14 days documented in this encounter [facility] 06-12-2022 History of Present illness Narrative Images from the original note were not included. 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 Surveillance System Monitor: Anayeli Burt Date of Liver Transplant: 04/13/2020 (Kidney), 04/13/2020 (Liver) 2 year, 1 months post Liver/Kidney Transplant Primary Disease: Hypertensive Nephrosclerosis Transplant Envelope Folding Machine Adjuster: Steve Latham Primary Care physician: Zuly Bruno [...] PREFERRED LAB AND PHARMACY: None Specified [facility] [place] [id number] - [address] [address] [facility] [address] [facility] [address] [id number] [place] [address] [address] [facility] 201 [facility] [address] [facility] [address], [place] [address] [facility] [address] ROS and SCREEN: Chest Pain: negative Cough: negative SOB: negative Abd Pain: negative Nausea: positive Vomiting: negative Diarrhea: negative Constipation: negative Dysuria: positive Edema: negative Tremors: negative Headaches: negative Wound issues: negative Pt has neph tube w clear yellow urine. States he had a small clot that he dislodged QUESTIONS OR CONCERNS TO ADDRESS WITH PHYSICIAN: I saw George Styles at the [facility] on 06/12/2022. Patient is a 52 y.o. 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 Steve Latham MD escalator mechanic Division of Nephrology [facility] documented in this encounter [facility] 06-04-2022 Instructions TATI GROVE - 06/04/2022 11:04 AM EDT Thank you for joining us for your neph tube follow up. We recommend routine exchange every 8-10 weeks. Please reach out at [phone] when it is time to set your next routine exchange. Thank you IR clinic documented in this encounter [facility] 06-04-2022 History of Present illness Narrative Met [...] this encounter [facility] 05-20-2022 Note Formatting of this n ote [...] Cook RN [facility] 05-20-2022 Miscellaneous Notes Patient discharged. AVS printed [...] provide teaching before his discharge Leon RN #[id number] Leon Cook RN Afternoon assessment completed at [...] Interdisciplinary Rounds/Family Conf Outcome: Ongoing Discussed with [facility] re: possible urine culture performed at [...] with questions. Evan Byrd MD Urology, PGY-2 #[id number] I certify that this patient requires inpatient [...] Kallie Lorenzana RN documented in this encounter [facility] 05-20-2022 Note Formatting of this n ote [...] for Discharge [facility] 05-20-2022 Note Formatting of this n ote might be different from the original. Anne Dillard MD R10 Rm [address] George Please let's have a clear order on how the nephrostomy site dressing need to be changed when the patient goes home so we provide teaching before his discharge Leon RN #[id number] Leon Cook RN [facility] 05-20-2022 History of Present illness Narrative Images from the original note were not included. [facility] Note: [facility] received the following discharge prescription(s): Medication reconciliation was completed with comparison to discharge reconciliation report. The prescription(s) will be delivered to the patient's bedside on 05/20/22. Total cost is $0. Yanira Her RPh,PharmD Specialty ([place]) [phone] [facility] [phone] [facility] [phone] Raheem [phone] [place] [phone] Bedside Delivery ([facility]) [phone] Electronically signed by Yanira Her [facility],PharmD at 05/20/2022 12:02 PM EDT Attending I saw George Styles at the [facility] on 05/19/2022. I saw and independently [...] Daily Progress Note Patient: George Styles, 1970, [id number] Physician: Liam Julian MD, PGY-3, Pager #[phone], [email or web address] Subjective/Interval History: No acute events overnight. Passed [...] Saldana MD Division of Hospital Medicine Pager [phone] Attending I saw George Styles at the [facility] on 05/18/2022. I saw and independently [...] 50 mg 50 mg Oral BID Evan eBnnett MD Magnesium Sulfate 4 g in sterile [...] Daily Progress Note Patient: George Styles, 1970, [id number] Physician: Nishant Gamez MD, PGY2, Pager #[phone], [email or web address] Subjective/Interval History: Nephrostomy tube placed yesterday with a lot of urine output and significant improvement in creatinine. Objective: Vitals: 05/18/22409 BP: 190/86 Pulse: 83 Resp: 18 Temp: 98.4 F (36.9 C) O2 Device: room air (05/18/22409) Flow (L/min): 3 (05/17/22 8649) Gen: NAD, well-appearing HENT: NCAT, EOMI, MMM [...] to have stablized for this to be market survey representative. Daya (Nunu) Jeff Saldana MD Division of Hospital Medicine Pager [phone] Internal Medicine Daily Progress Note Patient: George Styles, 1970, [id number] Physician: Nishant Gamez MD, PGY2, Pager #[phone], [email or web address] Subjective/Interval History: Worsening creatinine this morning with [...] Saldana MD Division of Hospital Medicine Pager [phone] Attending I saw George Styles at the [facility] on 05/17/2022. I saw and independently [...] of chart and discussion with treatment team, Agricultural Equipment Design Engineer has not identified needs at this time. [...] follow. Introduced self and role of the automatic splicing machine operator to patient. Provided emotional and spiritual support and the patient responded by sharing their experience and discussed the following: - Spirituality/Church Affiliation: As a kid attended [employer] t[employer]ism but not a strong identity now - Family support - pt's brothers live close by Day Care Assistant provided: - Supportive presence - Active listening - Validation of feelings/emotions Patient encouraged to request a automatic splicing machine operator as needed. Chaplains are available in-house 24 hours a day and 7 days a week. For urgent matters in [facility], please page [phone]. If the request is not urgent, please enter a consult. Consults are responded to within 24 hours. Angie Singh Mdiv, [facility] and Transplant [place] [address] Day Care Assistant [facility] Day Care Assistant Kirk [phone] [email or web address] 22/06 [facility] Pager [phone] 22/06 Pager ,[facility], and [place] 1500 22/06 [place] Pager [phone] 05/16/22 1124 Clinical Encounter Type Visited With Patient Visit Type Introduction Pastoral Time Spent 15 min Referral Other (See Comment) (Rounding) Spiritual Assessment Spiritual Observation Spirituality helpful;Identifies as (see comment) (Mu-Ism) Emotional Observation Coping well Hope Observation Hopeful and accepting Support Observation By Family Interventions Provided Active listening;Supportive presence Facilitated Verbalization of feelings;Sharing of life story;Identifying support system Explored Expectations Triage Technician Education Triage Technician Service Available Yes Educated Patient Outcomes Patient Outcomes Articulated purpose/meaning Plan of Care Continue Visiting PRN Internal Medicine Daily Progress Note Patient: George Styles, 1970, [id number] Physician: Nishant Gamez MD, PGY2, Pager #[phone], [email or web address] Subjective/Interval History: Overall feeling okay this morning. 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 [...] Supervision Transfer Assessment: Sit to Stand Transfer Page Level: Sit->Stand: independent Skilled Intervention/Details: Sit->Stand: x1 from EOB Stand to Sit Transfer Page Level: Stand->Sit: supervision Assistive Device: Stand->Sit: armed chair Skilled Rationale: Controlled descent for sitting, Verbal cues Gait/Functional Mobility: Gait Assessment Page Level: Gait: supervision Assistive Device: Gait: gait belt Gait Distance (feet): 200 Gait Deviations Identified: decreased grace, decreased step length, decreased stride length Gait Skilled Rationale: verbal, upright posture Skilled Intervention/Details - Gait: Pt with steady gait without LOB or complaints of SOB. Stairs: Stairs Assessment Page Level: Stair Negotiation: stand-by assist Assistive Device: [...] reported no concerns with discharging home with riva support. 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 IADL History IADLs: independent Primary Language: Sri [place]ankan Home Management Skills: independent Meal Prep Responsibility: [...] Assessment: Transfer Assessment: Sit to Stand Transfer Page Level: Sit->Stand: independent Skilled Rationale: Cues for increased safety Skilled Intervention/Details: Sit->Stand: x1 EOB Stand to Sit Transfer Page Level: Stand->Sit: supervision Assistive Device: Stand->Sit: gait belt, armed chair Skilled Rationale: Verbal cues, Controlled descent for sitting, Cues for increased safety Skilled Intervention/Details: Stand->Sit: cues for hand placement and controlled descent Functional Mobility: Functional Mobility Page Level: Functional Mobility/Gait: stand-by assist Assistive Device: [...] DAY SURGERY MAIN OR KIDNEY TRANSPLANT W/O [place]AND [place] NEPHRECTOMY N/A 04/12/2020 Laterality: N/A; Surgeon: LU [...] by: Mel Norman OT, OTR/L License #: [id number] pager # [phone] 05/20/2022 Upon discontinuation of Acute Care Occupational Therapy Services or patient discharge from the hospital this note represents the current Occupational Therapy Discharge Summary. documented in this encounter [facility] [facility] Hospital course Narrative Discharge [...] during his recent hospital stay at [facility]. As you may know, George [...] Saldana MD Division of Hospital Medicine p: [phone] f: [phone] CONSULTS DURING ADMISSION: IP CONSULT TO SURGERY - UROLOGY IP CONSULT TO NEPHROLOGY - TRANSPLANT (MEDICINE) IP CONSULT TO INTERVENTIONAL RADIOLOGY IP CONSULT TO PHYSICAL THERAPY IP CONSULT TO OCCUPATIONAL THERAPY IP CONSULT TO PHARMACY BEDSIDE DISCHARGE MED DELIVERY IMAGING / PROCEDURES / RESULTS: Should you require further information or copies of results or reports please contact Medical Information Management @ [phone] LABS AT TIME OF DISCHARGE: Lab Results [...] AT DISCHARGE: Zuly Bruno [address] [facility] / [place] [address] MEDICATIONS: Discharge Orders CT ABDOMEN/PELVIS WITHOUT CONTRAST [...] CAPS Generic drug: docusate Follow-up: Zuly Bruno, LOKIE DRIVER [address] [facility] [phone] Schedule an appointment as soon as possible for a visit Follow-up appointment with your, primary care physician within 7-10 days, after discharge. [address] [facility] [phone] Follow up The department of urology will call you with a follow up appointment. LU Ovalle [address] 11th Floor [facility] [phone] Follow up Please make a follow up appointment with Dr. Latham's office. Upcoming Appointments (up to five)-Some appointments for Medical Center outpatient clinics or diagnostic testing locations are not displayed below Provider Department Dept Phone 06/04/2022 10:40 AM [facility] Interventional Radiology Clinic [phone] 06/27/2022 1:30 PM [facility], [facility] Department of Radiology Arrive at: Arrive to First Floor Registration Desk [phone] 06/27/2022 2:40 PM Ryan Yepez [facility] [place] Arrive at: Arrive to 2nd Floor, Registration [address] 10/31/2022 1:00 PM Steve Latham [facility] Trans[facility] [phone] 01/16/2023 9:40 AM TRANSPLANT HEPATOLOGY , [facility] Trans[facility] [phone] Associated attestation - Daya Saldana MD - [...] Saldana MD Division of Hospital Medicine Pager [phone] documented in this encounter [facility] 05-20-2022 Hospital Discharge instructions Giulia [...] be changed by Interventional Radiology. Please call [phone] to schedule this appointment and with any questions or concerns you may have regarding the nephrostomy tube. If you have questions or concerns, please call Interventional Radiology at SOMEONE FROM INTERVENTIONAL RADIOLOGY WILL CALL YOU FOR A FOLLOW UP IN THE IR CLINIC Giulia Cavazos RN Nurse Coordinator Interventional Radiology Interventional Radiology Outpatient scheduling documented in this encounter [facility] 05-19-2022 Note Formatting of this n ote [...] Rounds/Family Conf Outcome: Ongoing [facility] 05-19-2022 Note Formatting of this n ote might be different from the original. Discussed with [facility] re: possible urine culture performed at their facility. However, based on urinalysis completed at that time, which was only notable for hematuria, culture was not performed and sample no longer feasible for culture. Liam Julian MD Internal Medicine/Pediatrics, PGY-3 [facility] 05-18-2022 Note Formatting of this n ote might be different from the original. 2002: IHIS message sent to Dr Justyn Wen, regarding patient passing a small kidney stone, about the size of pea. MD notified. Stone left in strainer in pt bathroom. 0500: IHIS message sent to Dr Justyn Wen, regarding pt BP 174/77. [facility] 05-18-2022 Note Formatting of this n ote [...] Outcome: Ongoing [facility] 05-18-2022 Note Formatting of this n ote [...] NS should instead be used. [facility] Work Phone: 05-18-2022 Note Formatting of this n ote might be different from the original. IHIS chat sent to Dr Tray Quintana, regarding pt BP 190/86. Pt complaining of pain at site of neph tube. PRN pain medication given per order parameters. Pt denies any other symptoms at this time. MD notified and aware. [facility] 05-17-2022 Note Formatting of this n ote [...] incentive spirometer. [facility] 05-17-2022 Note Formatting of this n ote [...] in place. [facility] 05-16-2022 Note Formatting of this n ote might be different from the original. At 1530, I text chavad Kaitlynn Gomez MD that patient has only had 25ml urine output in matias this afternoon. [facility] 05-16-2022 Note Formatting of this n ote [...] with questions. Evan Byrd MD Urology, PGY-2 #[id number] [facility] Work Phone: 05-16-2022 Note Formatting of this [...] to home. [facility] 05-16-2022 Consult note Associated Order (s): IP CONSULT TO NEPHROLOGY - TRANSPLANT (MEDICINE) I saw George Styles at the [facility] on 05/16/2022. Reason for Consultation: kidney [...] he was given flomax and sent home. [place] better but noticed more pain and decreased [...] reach the best assessment and recommendations. Maxi Pirngle MD [facility] Work Phone: 05-16-2022 Consult note Associated Order (s): IP CONSULT TO NEPHROLOGY - TRANSPLANT (MEDICINE) I saw George Styles at the [facility] on 05/16/2022. Reason for Consultation: kidney [...] he was given flomax and sent home. [place] better but noticed more pain and decreased [...] states he went to his local ED [place] and he was put on Flomax and he did improve. Pt states last night he was unable to void with severe right sided abd pain. Pt states nausea and no vomiting or fevers. Pt states he went back to [place] ED at 0100 and they placed a [...] orthotopic (N/A, 04/12/2020); and kidney transplant w/o ruby nephrectomy (N/A, 04/12/2020). 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 The ruby kidneys are progressively atrophic bilaterally compared to [...] of 06/14/2020 are no longer present. The ruby distal right ureter is decompressed beyond this [...] with surgical history for renal graft and ruby right urinary drainage, as a discrete ureteroneocystostomy is not identified, and the graft may be draining via a ureteroureterostomy. Urology consultation recommended. 3. The ruby kidneys are bilaterally atrophic, with right renal sinus calcifications consistent with nonobstructing right ruby renal calculi up to 6 mm. Normal [...] PGY-3, Department of Urologic Surgery Pager #: [phone] Associated attestation - Ryan Yepez MD - [...] documented in this encounter [facility] 05-16-2022 Note Formatting of [...] [facility] Note Formatting of this n ote might be different from the original. On admission to R10, a dual RN initial assessment of skin condition was performed by Kallie Lorenzana RN and Sheri Arguelles RN. Skin Assessment: WDL Jose Score: 20 LDA Added:N Kallie Lorenzana RN [facility] 05-15-2022 Emergency department Note Report given to Kallie RN at [facility] 05-15-2022 Emergency department Note Report given to Kallie RN at [facility] Bladder scan with Dr Villatoro at bedside, [...] and was sent home with [facility]. He went back to that ED and [...] 04/12/2020 Laterality: N/A; Surgeon: LU Palma; Location: [facility] SAME DAY SURGERY MAIN OR KIDNEY TRANSPLANT W/O [place] NEPHRECTOMY N/A 04/12/2020 Laterality: N/A; Surgeon: LU [...] Schneider MD Resident 05/15/222030 Pt arrives from [facility] with kidney stones. Pt states he had right lower abd pain and right flank pain with blood in his urine since Thursday. Pt states he went to his local ED [place] and he was put on Flomax and he did improve. Pt states last night he was unable to void with severe right sided abd pain. Pt states nausea and no vomiting or fevers. Pt states he went back to [place] ED at 0100 and they placed a matias and CT scan completed and multiple kidney stones noted. [facility] as he had liver and kidney transplant in 03/2020. documented in this encounter [facility] 05-15-2022 History and physical note Internal Medicine Admission History & Physical Patient: George Styles, 1970, [id number] Physician: Evan Bennett MD, PGY1, Pager #[phone], GM 4 service Date of face to [...] DAY SURGERY MAIN OR KIDNEY TRANSPLANT W/O [place] NEPHRECTOMY N/A 04/12/2020 Laterality: N/A; Surgeon: LU [...] erythema: Skin: No jaundice or rash Neuro: lead mechanical engineer 3-7, 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 Strength grossly [...] dilation of the calyces may represent narrowing/partial [id number] ofthe ureter and mild hydronephrosis or sequela [...] Fred Prince MD Division of Hospital Medicine [phone] [facility] Work Phone: 05-15-2022 History and physical note Internal Medicine Admission History & Physical Patient: George Styles, 1970, [id number] Physician: Evan Bennett MD, PGY1, Pager #[phone], GM 4 service Date of face to [...] DAY SURGERY MAIN OR KIDNEY TRANSPLANT W/O [place] NEPHRECTOMY N/A 04/12/2020 Laterality: N/A; Surgeon: LU [...] erythema: Skin: No jaundice or rash Neuro: lead mechanical engineer 3-7, 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 Strength grossly [...] dilation of the calyces may represent narrowing/partial [id number] ofthe ureter and mild hydronephrosis or sequela [...] documented in this encounter [facility] 05-15-2022 Emergency department Note Bladder scan with Dr Villatoro at bedside, 14ml noted [facility] 05-15-2022 Consult note Associated Order [...] states he went to his local ED [place] and he was put on Flomax and he did improve. Pt states last night he was unable to void with severe right sided abd pain. Pt states nausea and no vomiting or fevers. Pt states he went back to [place] ED at 0100 and they placed a [...] orthotopic (N/A, 04/12/2020); and kidney transplant w/o ruby nephrectomy (N/A, 04/12/2020). 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 The ruby kidneys are progressively atrophic bilaterally compared to [...] of 06/14/2020 are no longer present. The ruby distal right ureter is decompressed beyond this [...] with surgical history for renal graft and ruby right urinary drainage, as a discrete ureteroneocystostomy is not identified, and the graft may be draining via a ureteroureterostomy. Urology consultation recommended. 3. The ruby kidneys are bilaterally atrophic, with right renal sinus calcifications consistent with nonobstructing right ruby renal calculi up to 6 mm. Normal [...] PGY-3, Department of Urologic Surgery Pager #: [phone] Associated attestation - Ryan Yepez MD - [...] future before surgical intervention --may continue flomax [facility] Work Phone: 05-15-2022 Emergency department Note Advised Dr Schneider concerning no urine output via matias catheter. [facility] 05-15-2022 Physician Emergency department Note ED Attending George Styles has a past medical history of Acute renal failure, CAD (coronary artery disease), Cirrhosis, Dialysis patient, End stage renal disease (06/01/2018), Essential hypertension, benign, Hepatic encephalopathy, History of blood transfusion, and Liver cirrhosis. Presents with a chief complaint of kidney stone and diagnosed Thursday and was sent home with [facility]. He went back to that ED and [...] MD 05/15/222003 [facility] Work Phone: 05-15-[address] Schneider made aware of only 30 ml urine via matias since arrival to room. [facility] 05-15-2022 Physician Emergency department Note dEPARTMENT of [...] 04/12/2020 Laterality: N/A; Surgeon: LU Palma; Location: [facility] SAME DAY SURGERY MAIN OR KIDNEY TRANSPLANT W/O [place] NEPHRECTOMY N/A 04/12/2020 Laterality: N/A; Surgeon: LU Palma; Location: [facility] SAME DAY SURGERY MAIN OR OTHER [...] Schneider MD Resident 05/15/222030 [facility] Work Phone: 05-15-2022 Emergency department Note Pt arrives from [facility] with kidney stones. Pt states he had right lower abd pain and right flank pain with blood in his urine since Thursday. Pt states he went to his local ED [place] and he was put on Flomax and he did improve. Pt states last night he was unable to void with severe right sided abd pain. Pt states nausea and no vomiting or fevers. Pt states he went back to [place] ED at 0100 and they placed a matias and CT scan completed and multiple kidney stones noted. Pt [facility] as he had liver and kidney transplant in 03/2020. [facility] 03-14-2022 History of Present illness Narrative [facility]RE[facility]: Call Information: Date and Time of Contact: 03/14/2022 5:01 PM Method of Contact: By Phone Contact Type: Prescriptions Contactor: [facility] Contactee: Patient Shipping/Pickup: Medicare B Refill?: No Medication Name: Mycophenolate sodium 180 mg and tacrolimus 0.5 mg Delivery Method: Air Delivery Location: Home Signature Required: No Mailing/Pickup Date: 03/17/2022 Shipping Address: [address] [place] [address] Contact Info: Specialty ([place]) [phone] [facility] [phone] [facility] [phone] Ra[place] [phone] Bedside Delivery ([facility]) [phone] documented in this encounter [facility] 06-14-2021 History of Present illness Narrative [facility] [...] Goal Progress: Satisfactory Contact Info: Specialty (Yanci) [phone] Jakob [phone] [facility] [phone] Raheem [phone] Bedside Delivery ([facility]) [phone] [facility] OUTREACH: Call Information: Date [...] Location: Home Signature Required: Yes Shipping Address: [address] [place] [address] Contact Info: Specialty (Yanci) [phone] Jakob [phone] [facility] [phone] Raheem [phone] Bedside Delivery ([facility]) [phone] documented in this encounter [facility] Evaluation note Diagnosis FAYE (acute kidney injury)- Primary Acute kidney failure, unspecified Hydronephrosis due to obstruction of ureteral orifice Hydronephrosis due to obstruction of ureteral orifice FAYE (acute kidney injury) Acute kidney failure, unspecified [facility] Diagnosis Follow-up exam- Primary Unspecified follow-up examination [facility] Diagnosis Immunosuppressed status- Primary Unspecified disorder of immune mechanism Kidney replaced by transplant Liver replaced by transplant Abnormal blood chemistry Other abnormal blood chemistry High risk medication use Encounter for long-term (current) use of other medications Aftercare following organ transplant Liver transplant recipient [facility] Diagnosis Attention to nephrostomy- Primary [facility] Diagnosis Other hydronephrosis- Primary [facility] Diagnosis FAYE (acute kidney injury) Acute kidney failure, unspecified [facility] Diagnosis Other hydronephrosis- Primary -donor kidney transplant recipient Kidney replaced by transplant [facility] Diagnosis Other hydronephrosis [facility] Diagnosis 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) Encounter for screening for malignant neoplasm of prostate Special screening for malignant neoplasm of prostate [facility] Diagnosis Abnormal blood chemistry- Primary Other abnormal blood chemistry Liver transplant recipient Kidney replaced by transplant Immunosuppressed status Unspecified disorder of immune mechanism Aftercare following organ transplant [facility] Diagnosis Kidney replaced by transplant- Primary [facility] Diagnosis Immunosuppressed status- Primary Unspecified disorder of immune mechanism Kidney replaced by transplant Aftercare following organ transplant High risk medication use Encounter for long-term (current) use of other medications Other general symptoms and signs Abnormal blood chemistry Other abnormal blood chemistry Hypertension secondary to other renal disorders [facility] Histoplasmosis- Primary Histoplasmosis, [...] [facility] Diagnosis Bilateral lower extremity edema- Primary 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) Atherosclerosis 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) Atherosclerosis of aorta Obesity (BMI 30-39.9) DARLENE (obstructive sleep apnea) Obstructive sleep apnea (adult) (pediatric) Tremor Abnormal involuntary movements Immunocompromised (CMS/HCC) Unspecified immunity deficiency Primary hypertension (CMS/HCC) Unspecified essential hypertension Shortness of breath documented in this encounter [facility]* Diagnosis Pleural effusion [...] specified pre-operative examination [facility] Diagnosis Heart failure, diastolic, acute- Primary Acute diastolic heart failure [facility] Diagnosis Liver lesion- Primary Other specified disorders of liver Liver transplant recipient High risk medication use Encounter for long-term (current) use of other medications Therapeutic drug monitoring Encounter for therapeutic drug monitoring Immunocompromised Unspecified immunity deficiency [facility] Diagnosis Kidney replaced by transplant- Primary [facility] Consultation (Routine) - New Request Specialty Diagnoses / Procedures Referred By Deni edwards Referred To Contact Interventional Radiology Diagnoses Hydronephrosis due to obstruction of ureteral orifice Daya Saldana MD [address] [place] [address] Referral ID Status Reason Start Date Expiration Date V isits Requested Visits Authorized [id number] New Request 05/18/2022 06/12/2023 1 1 * Radiology (Emergency) - New Request Specialty Diagnoses / Procedures Referred By Contac t Referred To Contact Procedures US RENAL TRANSPLANT SCAN Daya Saldana MD [address] [place] [address] Referral ID Status Reason Start Date Expiration Date V isits Requested Visits Authorized [id number] New Request 05/16/2022 06/10/2023 1 1 * Consultation (Routine) - New Request Specialty Diagnoses / Procedures Referred By Contac t Referred To Contact Urology Diagnoses FAYE (acute kidney injury) Ryan Yepez MD [address] [place] [address] [address] [place] [address] Referral ID Status Reason Start Date Expiration Date V isits Requested Visits Authorized [id number] New Request 05/16/2022 06/10/2023 1 1 * MRI/CAT Scan (Routine) - New Request Specialty Diagnoses / Procedures Referred By Contac t Referred To Contact Diagnoses FAYE (acute kidney injury) Procedures CT ABDOMEN/PELVIS WITHOUT CONTRAST CHG CT SCAN,ABDOMENT AND PELVIS,W/O CONTRAST Ryan Yepez MD [address] [place] [address] [address] [place] [address] Referral ID Status Reason Start Date Expiration Date V isits Requested Visits Authorized [id number] New Request 05/16/2022 06/10/2023 1 1 * (Routine) - Pending Review Specialty Diagnoses / Procedures Referred By Contac t Referred To Contact Procedures PLATELET MONITORING PER PROTOCOL Daya Saldana MD [address] [place] [address] Referral ID Status Reason Start Date Expiration Date V isits Requested Visits Authorized [id number] Pending Review 05/15/2022 06/09/2023 1 1 * (Routine) - Pending Review Specialty Diagnoses / Procedures Referred By Contac t Referred To Contact Procedures DVT/VTE RISK ASSESSMENT Daya Saldana MD [address] [place] [address] Referral ID Status Reason Start Date Expiration Date V isits Requested Visits Authorized [id number] Pending Review 05/15/2022 06/09/2023 1 1 * (Routine) Specialty Diagnoses / Procedures Referred By Contac t Referred To Contact Evan Bennett MD [address] [place] [address] Referral ID Status Reason Start Date Expiration Date Visits Re quested Visits Authorized * (Routine) Specialty Diagnoses / Procedures Referred By Contac t Referred To Contact Evan Bennett MD [address] [place] [address] Referral ID Status Reason Start Date Expiration Date Visits Re quested Visits Authorized [facility] for referral (narrative)* Consultation (Routine) - New Request Specialty Diagnoses / Procedures Referred By Contac t Referred To Contact Sleep Medicine Diagnoses Kevin Conroy MD [address] [place] [address] Referral ID Status Reason Start Date Expiration Date V isits Requested Visits Authorized [id number] New Request 09/10/2023 10/04/2024 1 1 * MRI/CAT Scan (Routine) - New Request Specialty Diagnoses / Procedures Referred By Contac t Referred To Contact Diagnoses Histoplasmosis Procedures CT CHEST WITHOUT CONTRAST CHG DIAGNOSTIC COMPUTED TOMOGRAPHY THORAX W/O CNTRST Kevin Sage MD [address], [place] [address] Referral ID Status Reason Start Date Expiration Date V isits Requested Visits Authorized [id number] New Request 09/10/2023 10/04/2024 1 1 * Radiology (Routine) - New Request Specialty Diagnoses / Procedures Referred By Contac t Referred To Contact Procedures US RENAL TRANSPLANT SCAN Steve Latham [facility] [address] [place] [phone] Referral ID Status Reason Start Date Expiration Date V isits Requested Visits Authorized [id number] New Request 08/29/2023 09/22/2024 1 1 * (Routine) - New Request Specialty Diagnoses / Procedures Referred By Contac t Referred To Contact Procedures PLATELET MONITORING PER PROTOCOL Steve Latham [facility] [address], [place] [address] Referral ID Status Reason Start Date Expiration Date V isits Requested Visits Authorized [id number] New Request 08/28/2023 09/21/2024 1 1 * (Routine) - New Request Specialty Diagnoses / Procedures Referred By Contac t Referred To Contact Procedures DVT/VTE RISK ASSESSMENT Steve [facility] [address], [place] [address] Referral ID Status Reason Start Date Expiration Date V isits Requested Visits Authorized [id number] New Request 08/28/2023 09/21/2024 1 1 [facility] Instructions * Patient Instructions - Christin Elizabeth APRN-CNP - 10/19/2018 9:21 AM EST You should take an extra dose of the lactulose as needed so that you are having 3-4 bowel movementsdaily. You should start the chemical dependency counseling as soon as possible. If you have questions, call the transplant social services specialist Fidelina Pierson. in this encounter* Patient Instructions - Sophie Cary, SAMI - 10/12/2018 11:09 AM EST You have been seen in the pre-transplant evaluation clinic by Dr. Restrepo and Sophie Cary. Sophie Cary is your pre-group sales coordinator she can be reached at [phone] at any time for questions during the pre-transplant process. Your evaluation is complete pendin. Abdominal ultrasound. 2. 6 minute walk test. 3. Cardiology evaluation. Additionally, your 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 will recommend testing to screen for coronary artery disease. This will be scheduled for you after your cardiology visit. 4. Your coordinator will be requesting record from your last dental visit, colonoscopy and EGD. 5. Please work to complete social work recommendations. Your social services specialist will be contacting you to follow up on your progress. 6. You have also been referred for a kidney transplant. An appointment will be scheduled for you sari evaluated in the kidney transplant clinic after you have satisfied requirements dictated by [employer] company. Once your testing is complete, we [...] ___ Other Name MRN * Christin Elizabeth, ECHOCARDIOGRAPHER-LOKIE DRIVER - 10/19/2018 9:00 AM EST Formatting of this note may be different from the original. History of Present Illness: Chief Complaint Patient presents with Follow-up Cirrhosis George Styles is a 48 y.o. male who presents to the [facility] G[facility] today regarding his diagnosis/chief complaint(s) of Cirrhosis secondary to ETOH, with ESRD follows with Dr. Orr. Currently undergoing evaluation for liver/kidney transplant. Has been seen in transplant clinic for eval. Still undergoing pre testing. Diagnosed in April 2018. Last drink was immediately prior to hospital admission in [place] for ACLF. Hospital course notable for ARF [...] 3. FU 12 weeks. in this encounter* WynantskillRafiaFidelinaCRIS - 10/12/2018 10:00 AM EST Formatting of this note may be different from the original. Transplant Recipient Psychosocial Evaluation Demographics: Patient is a 48 y.o., White, Single, male, who presented for a liver and kidney transplant evaluation. Pt was AOx3. Transplant Engineer Steam role/function was explained and reviewed. The patient [...] resources were offered. Pt identifies with YAZIDI druze. Pt confirms being a [place] Citizen. Pt.'s primary language is Sri [place]ankan. Pt confirms the ability to read,write, and understand [place]an. Pt denies potential donors. Donor cards and [...] has valid license, does not regularly drive (LOKIE DRIVER recommends that he not to drive). He [...] organ related disease etoh cirrohosis April [facility] for thirty days. Pt [...] as well as referred him to pre group sales coordinator. Pt and support demonstrated moderate understanding [...] Patient's brother David is a self employed network associate. Additional support includes his other brother Tyshawn and his Mary live fifteen minutes away. Of note Mary is a employee communications coordinator for a [employer] is available to assist sack department supervisor. He confirms being comfortable asking [...] in 2010, he was employed by the [employer] He has access to SSDI payment (SSDI starts in November) in regards to financial means pre/ post-transplant. Pt confirms (meeting bills currently, ) being able to meet daily needs. Patient's brother asking for additional information on community resources, food stamps and [place]. Refer him to pt.'s dialysis center and the [facility]. Hereports access to Medicaid. Pt. denies [...] treatment after a DUI charge [facility] in [place], court ordered treatment in 2001 and in [...] by patient from his primary medical provider- LOKIE DRIVER patient was noted as attending an alcohol [...] new visit Date of service: 10/12/2018 -Referring director funeral for today's consult: -Primary Care Provider: Zuly [...] EST Timed up and go 9.9 seconds Avionics Technician Left 52.8 pounds Right 44.9 pounds Waist circ 38.5 inches * Sophie Cary, RN - 10/12/2018 10:00 AM EST Formatting of this note may be different from the original. Patient George Styles ([id number]), accompanied by his brother, was seen on [...] any further questions. Sophie GUERINN, RN Liver Surveillance System Monitor Etiology: ETOH HCC: No ETOH: Yes Last [...] RUQ/LIVER/GB Yovani Orr MD [address] [address] Status Reason Specialty Diagnoses / Procedures Referred By Contact Referred To Contact New Request Diagnoses Cirrhosis of liver with ascites, unspecified hepatic cirrhosis type Procedures US ABDOMEN RUQ/LIVER/GB Yovani Orr MD [address] [address] Specialty Diagnoses / Procedures Referred By Contac t Referred To Contact Diagnoses FAYE (acute kidney injury) Procedures CT ABDOMEN/PELVIS WITHOUT CONTRAST CHG CT SCAN,ABDOMENT AND PELVIS,W/O CONTRAST Central Scheduling [address] [place] [address] Referral ID Status Reason Start Date Expiration Date V isits Requested Visits Authorized [id number] Pending Review 05/16/2022 06/10/2023 1 1 Specialty Diagnoses / Procedures Referred By Contac t Referred To Contact Diagnoses Other hydronephrosis Procedures FLUORO IMAGING FOR UROLOGY Ryan Yepez MD [address] [facility] [address] [place] [address] Referral ID Status Reason Start Date Expiration Date V isits Requested Visits Authorized [id number] New Request 07/07/2022 08/01/2023 1 1 Specialty Diagnoses / Procedures Referred By Contac t Referred To Contact Procedures DIRECT ADMIT REQUEST Steve [facility] MBBS [address] [place] [address] Referral ID Status Reason Start Date Expiration Date V isits Requested Visits Authorized [id number] New Request 08/28/2023 09/21/2024 1 1 Specialty Diagnoses / Procedures Referred By Contac t Referred To Contact Radiology Diagnoses DARLENE (obstructive sleep apnea) Primary hypertension (CMS/HCC) Bilateral lower extremity edema Shortness of breath Procedures Echocardiogram 2D complete Zuly Bruno NP [address] [place] [address] Referral ID Status Reason Start Date Expiration Date Visits Requested Visits Authorized [id number] Incomplete Perform Procedure 01/06/2024 07/04/2024 1 1 Specialty Diagnoses / Procedures Referred By Contac t Referred To Contact Procedures US IMAGING REGIONAL ANESTHESIA Kehinde Gutierrez MD [address] [place] [address] Referral ID Status Reason Start Date Expiration Date V isits Requested Visits Authorized [id number] New Request 01/22/2024 02/15/2025 1 1 Specialty Diagnoses / Procedures Referred By Contac t Referred To Contact Cardiovascular Medicine Diagnoses Heart failure, diastolic, acute Kelvin Pacheco MD, MBBS [address] [place] [address] Referral ID Status Reason Start Date Expiration Date V isits Requested Visits Authorized [id number] New Request 01/20/2024 02/13/2025 1 1 Specialty Diagnoses / Procedures Referred By Contac t Referred To Contact Procedures US ABDOMEN LIVER DOPPLER US ABDOMEN LIVER TRANSPLANT DOPPLER Timothy Joseph MD [address] [facility] [address] [place] [address] Referral ID Status Reason Start Date Expiration Date V isits Requested Visits Authorized [id number] New Request 01/16/2024 02/09/2025 1 1 Specialty Diagnoses / Procedures Referred By Contac t Referred To Contact Procedures DVT/VTE RISK ASSESSMENT Kelvin Pacheco MD, MBBS [address] [place], [place] [id number] Referral ID Status Reason Start Date Expiration Date V isits Requested Visits Authorized [id number] New Request 01/16/2024 02/09/2025 1 1 Specialty Diagnoses / Procedures Referred By Contac t Referred To Contact Procedures PLATELET MONITORING PER PROTOCOL Kelvin Pacheco MD, MBBS [address] [place] [address] Referral ID Status Reason Start Date Expiration Date V isits Requested Visits Authorized [id number] New Request 01/16/2024 02/09/2025 1 1 Referral ID Status Reason Start Date Expiration Date V isits Requested Visits Authorized [id number] New Request 01/16/2024 02/09/2025 1 1 Specialty Diagnoses / Procedures Referred By Contac t Referred To Contact Procedures ECG Kelvin Pacheco MD, MBBS [address] [place] [address] Referral ID Status Reason Start Date Expiration Date V isits Requested Visits Authorized [id number] New Request 01/16/2024 02/09/2025 1 1 Specialty Diagnoses / Procedures Referred By Contac t Referred To Contact Diagnoses Liver lesion Procedures MRI ABDOMEN WITH AND WITHOUT CONTRAST CHG MRI ABDOMEN W/O & W/CONTRAST MATERIAL Daisha Max, DO [address] [place] [address] Referral ID Status Reason Start Date Expiration Date V isits Requested Visits Authorized [id number] New Request 06/17/2024 07/12/2025 1 1 Advance Directives Documents on File Type Date Recorded Patient Building Energy Consultant Expl anation Advance Directives and Living Will Power of Doctor Of Medicine Latest Code Status on File Code Status [...] Orr MD [address] [address] Status Reason Specialty Diagnoses / Procedures Referre d By Contact Referred To Contact Denied Diagnoses Alcoholic cirrhosis, unspecified whether ascites present Pre-transplant evaluation for liver transplant Procedures MRI ABDOMEN WITH CONTRAST TX MRI, ABDOMEN W/CONTRAST Yovani Orr MD [address] [address] Reason Comments Liver Recipient Evaluation Status Reason Specialty Diagnoses / Procedures Referred By Contact Referred To Contact New Request Transplant / Transplant Surgery Procedures PRE NEW PATIENT Yovani Orr MD [address] [address] Alfredito Restrepo MD [address] [place] [address] Reason Comments Reschedule Reason Comments Outside Medical Records Request Reason Comments Social Work Follow-up Reason Comments Kidney Stone Specialty Diagnoses / Procedures Referred By Contac t Referred To Contact Diagnoses Obstructing kidney stone, s/p kidney transplant 2019 Daya Saldana MD [address] [place] [address] [facility] [address] [place] [address] Referral ID Status Reason Start Date Expiration Date Visits Re quested Visits Authorized [id number] 1 1 Reason Comments Follow-up Reason Comments Kidney Recipient Follow-up Liver Recipient Follow-up Reason Comments Consult Reason Comments New Patient Hospital follow up Specialty Diagnoses / Procedures Referred By Contac t Referred To Contact Urology Diagnoses hosp fu with [address] prior Procedures NEW TO DOC/RET PATIENT Zuly Bruno CNP [address] [place] [address] Ryan Yepez MD [address] [facility] [address] [place] [address] Referral ID Status Reason Start Date Expiration Date Visits Re quested Visits Authorized [id number] Closed 06/27/2022 07/22/2023 1 1 Specialty Diagnoses / Procedures Referred By Contac t Referred To Contact Diagnoses FAYE (acute kidney injury) Procedures CT ABDOMEN/PELVIS WITHOUT CONTRAST CHG CT SCAN,ABDOMENT AND PELVIS,W/O CONTRAST Central Scheduling [address] [place] [address] Referral ID Status Reason Start Date Expiration Date V isits Requested Visits Authorized [id number] Pending Review 05/16/2022 06/10/2023 1 1 Reason Comments Follow-up Specialty Diagnoses / Procedures Referred By Contac t Referred To Contact Urology Diagnoses 1 week fu post NT clamp Procedures RETURN PATIENT Zuly Bruno CNP [address] [place] [address] Ryan Yepez MD [address] [facility] [address] [place] [address] Referral ID Status Reason Start Date Expiration Date Visits Requested Visits Authorized [id number] Authorized - 07/07/2022 08/01/2023 2 2 Specialty Diagnoses / Procedures Referred By Contac t Referred To Contact Diagnoses Other hydronephrosis Procedures FLUORO IMAGING FOR UROLOGY Ryan Yepez MD [address] [facility] [address] [place] [address] Referral ID Status Reason Start Date Expiration Date V isits Requested Visits Authorized [id number] New Request 07/07/2022 08/01/2023 1 1 Specialty Diagnoses / Procedures Referred By Contac t Referred To Contact Urology Diagnoses 1 week fu post NT clamp Procedures RETURN PATIENT Zuly Bruno, ROB [address] [place] [address] Ryan Yepez MD [address] [place] [address] [address] [place] [address] Referral ID Status Reason Start Date Expiration Date Visits Re quested Visits Authorized [id number] Closed 07/07/2022 08/01/2023 2 2 Reason Comments Liver Recipient Follow-up Reason Comments Kidney Recipient Follow-up Reason Comments Kidney Recipient Follow-up Specialty Diagnoses / Procedures Referred By Contac t Referred To Contact Diagnoses Kidney replaced by transplant Steve Latham MBBS [address] [place] [address] [facility] [address] [place] [address] Referral ID Status Reason Start Date Expiration Date Visits Re quested Visits Authorized [id number] 1 1 Specialty Diagnoses / Procedures Referred By Contac t Referred To Contact Diagnoses Pleural effusion on right PNEUMONIA- HX LIVER AND KIDNEY TRANSPLANT Kevin Sage MD [address] [place] [address] [facility] [address] [place] [address] Referral ID Status Reason Start Date Expiration Date Visits Re quested Visits Authorized [id number] 1 1 Reason Comments New Patient Specialty Diagnoses / Procedures Referred By Contdaniel t Referred To Contact Cardiovascular Medicine Diagnoses Heart failure, diastolic, acute Kelvin Pacheco MD, MBBS [address] 1[address] [place] [address] Referral ID Status Reason Start Date Expiration Date Visits Requested Visits Authorized [id number] Authorized - 01/20/2024 02/13/2025 5 5 Reason Comments Liver Recipient Follow-up (unrecognized sect ion and content) No Status Records FoundNo Status Records FoundNo Status Records FoundNo Status Records FoundNo Status Records FoundNo Status Records Found INFORMATION SOURCE (unrecogn ized section and content) DATE CREATED AUTHOR 01/07/2020 [facility] DATE CREATED AUTHOR AUTHOR'S ORGANIZ ATION 01/27/2021 [facility] DATE CREATED AUTHOR AUTHOR'S ORGANIZ ATION 05/11/2023 [facility] DATE CREATED AUTHOR AUTHOR'S ORGANIZ ATION 04/19/2024 [facility] dical Specialists [facility] DATE CREATED AUTHOR AUTHOR'S ORGANIZ ATION 06/03/2024 [facility] DATE CREATED AUTHOR AUTHOR'S ORGANIZ ATION 06/20/2024 [facility] Care Teams (unrecognized sec tion and content) Director Medical Surgical Relationship Specialty Start Date End Date Zuly Bruno, ROB PCP - General 07/19/18 Comfort Rivera, [facility] [address] [facility] [address] [place] [address] Pharmacist Pharmacist 05/16/20 Angel Carpio RP,PharmD Pharmacist Pharmacist 05/16/20 Te Leigh [facility],PharmD Pharmacist Pharmacist 01/09/21 Director Medical Surgical Relationship Specialty Start Date End Date Zuly Bruno CNP PCP - General 07/19/18 Comfort iRvera, [facility] [address] [place] [address] Pharmacist Pharmacist 05/16/20 Angel Carpio, [facility],PharmD Pharmacist Pharmacist 05/16/20 Te Leigh [facility],PharmD Pharmacist Pharmacist 01/09/21 Director Medical Surgical Relationship Specialty Start Date End Date Zuly Bruno CNP PCP - General 07/19/18 Director Medical Surgical Relationship Specialty Start Date End Date Zuly Bruno CNP PCP - General 07/19/18 Director Medical Surgical Relationship Specialty Start Date End Date Zuly Bruno CNP PCP - General 07/19/18 Director Medical Surgical Relationship Specialty Start Date End Date Zuly Bruno CNP PCP - General 07/19/18 Director Medical Surgical Relationship Specialty Start Date End Date Zuly Bruno CNP PCP - General 07/19/18 Director Medical Surgical Relationship Specialty Start Date End Date Zuly Bruno CNP PCP - General 07/19/18 Director Medical Surgical Relationship Specialty Start Date End Date Zuly Bruno CNP PCP - General 07/19/18 Director Medical Surgical Relationship Specialty Start Date End Date Zuly Bruno CNP PCP - General 07/19/18 Director Medical Surgical Relationship Specialty Start Date End Date Zuly Bruno CNP PCP - General 07/19/18 Director Medical Surgical Relationship Specialty Start Date End Date Zuly Bruno CNP PCP - General 07/19/18 Director Medical Surgical Relationship Specialty Start Date End Date Zuly Bruno CNP PCP - General 07/19/18 Director Medical Surgical Relationship Specialty Start Date End Date Zuly Bruno CNP PCP - General 07/19/18 Director Medical Surgical Relationship Specialty Start Date End Date BrianlatishaZuly tipton CNP PCP - General 07/19/18 Director Medical Surgical Relationship Specialty Start Date End Date Zuly Bruno CNP PCP - General 07/19/18 Director Medical Surgical Relationship Specialty Start Date End Date Zuly Bruno CNP PCP - General 07/19/18 Evan White DO [facility] [place] [address] Infectious Disease Infectious Disease 09/09/23 Director Medical Surgical Relationship Specialty Start Date End Date LexielydialatishaZuly tipton ROB PCP - General 07/19/18 Evan White DO [facility] [place] [address] Infectious Disease Infectious Disease 09/09/23 Director Medical Surgical Relationship Specialty Start Date End Date Zuly Bruno CNP PCP - General 07/19/18 Evan White DO [facility] [place] [address] Infectious Disease Infectious Disease 09/09/23 Director Medical Surgical Relationship Specialty Start Date End Date Momo Verdugo MD PCP - General Family Medicine 05/21/23 Director Medical Surgical Relationship Specialty Start Date End Date Momo Verdugo MD PCP - General Family Medicine 05/21/23 Director Medical Surgical Relationship Specialty Start Date End Date Momo Verdugo MD PCP - General Family Medicine 05/21/23 Director Medical Surgical Relationship Specialty Start Date End Date Zuly Bruno CNP PCP - General 07/19/18 Evan White DO [facility] [place] [address] Infectious Disease Infectious Disease 09/09/23 Director Medical Surgical Relationship Specialty Start Date End Date Zuly Bruno CNP PCP - General 07/19/18 Evan White DO [address] [place], [place] [id number] Infectious Disease Infectious Disease 09/09/23 Director Medical Surgical Relationship Specialty Start Date End Date Zuly Bruno CNP PCP - General 07/19/18 Evan White DO [address] [place] [address] Infectious Disease Infectious Disease 09/09/23 Director Medical Surgical Relationship Specialty Start Date End Date Zuly Bruno CNP PCP - General 07/19/18 Evan White DO [address] [place] [address] Infectious Disease Infectious Disease 09/09/23 Director Medical Surgical Relationship Specialty Start Date End Date Zuly Bruno CNP PCP - General 07/19/18 Evan White DO [address] [place] [address] Infectious Disease Infectious Disease 09/09/23 Director Medical Surgical Relationship Specialty Start Date End Date Zuly Bruno CNP PCP - General 07/19/18 Director Medical Surgical Relationship Specialty Start Date End Date Zuly Bruno CNP PCP - General 07/19/18 Director Medical Surgical Relationship Specialty Start Date End Date Zuly Bruno CNP PCP - General 07/19/18 Director Medical Surgical Relationship Specialty Start Date End Date Zuly Bruno CNP PCP - General 07/19/18 Director Medical Surgical Relationship Specialty Start Date End Date Zuly Bruno CNP PCP - General 07/19/18 Director Medical Surgical Relationship Specialty Start Date End Date Zuly [...] Josey Braun, RN) 0932 (Given - Provider: Leno Cook, RN) aspirin chewable tablet 81 mg [...] Mel Hampton RN) 08 (Given - Provider: oJsey Braun RN) 0932 (Given - Provider: Leon [...] - Reason: Transfer to a Procedural area)141 ([facility] Unhold - Provider: Automatic Transfer)2008 (Given - Provider: Tati Ahmadi RN) Itraconazole (SPORANOX) oral solution 100 mg 100 mg, Oral, EVERY 12 HOURS, First dose on 01/16/24 at 0900, Until Discontinued, Administer on an empty stomach. Hold tube feeds for 1 hour before and 2 hours after administration. 0843 (Given - Provider: Ercia Gudino RN)2034 (Given - Provider: Tati Ahmadi [...] 08 (Given - Provider: Terra Heart RN)105 ([facility] Hold - Provider: Automatic Transfer - Reason: Transfer to a Procedural area)141 ([facility] Unhold - Provider: Automatic Transfer)2008 (Given - Provider: Ttai Ahmadi RN) 919 (Given - Provider: Terra Heart RN) Sulfamethoxazole-trime thoprim (BACTRIM DS) 800-160 MG per tablet 1 tablet 1 tablet, Oral, THREE TIMES WEEKLY (Once per day on Thursday), First dose on Thu01/18/24 at 0900, Until Discontinued 08 (Given - Provider: Terra Heart RN)1052 ([facility] Hold - Provider: Automatic Transfer - Reason: Transfer to a Procedural area)1413 ([facility] Unhold - Provider: Automatic Transfer) tacrolimus (PROGRAF) susp 0.2 mg 0.2 mg, Oral, CUSTOM FREQUENCY (Once per day on Thursday), First dose on 01/16/24 at 0900, Until Discontinued, Caution check route of administration. For sublingual administration, place liquid under tongue and allow absorption. 08 (Given - Provider: Erica Gudino RN) 1052 ([facility] Hold - Provider: Automatic Transfer - Reason: Transfer to a Procedural area)141 ([facility] Unhold - Provider: Automatic Transfer) 922 (Given - Provider: Terra Heart RN) Tamsulosin HCl (FLOMAX) capsule 0.4 mg 0.4 mg, Oral, DAILY, First dose on 01/16/24 at 0900, Until Discontinued, Slow release product. Do not chew or crush 42 (Given - Provider: Erica Gudino RN) 08 (Given - Provider: Terra Heart RN)105 ([facility] Hold - Provider: Automatic Transfer - Reason: Transfer to a Procedural area)141 ([facility] Unhold - Provider: Automatic Transfer) 09 [...] BE BASED ON THE PRIMARY CLINICAL RECORDS. [facility]. provides no warranty or guarantee of the accuracy or completeness of information in this document.
[2024-08-15 07:37] LABS: Basophils Percent Auto 0.7 % (0.2-2.0); Eosinophils Absolute Auto 0.1 10^3/uL (0.0-0.7); Eosinophils Percent Auto 2.7 % (0.9-7.0); Hematocrit 47.4 % (42.0-54.0); Hemoglobin 15.6 g/dL (14.0-18.0); Immature Granulocytes Abs Auto 0.01 10^3/uL (0.00-0.03); Immature Granulocytes Pct Auto 0.2 % (0.0-0.5); Lymphocytes Absolute Auto 1.3 10^3/uL (1.2-3.8); Lymphocytes Percent Auto 29.6 % (20.5-60.0); Mean Corpuscular HGB Conc 32.9 g/dL (29.9-35.2); Mean Corpuscular Hemoglobin 28.8 pg (25.9-34.0); Mean Corpuscular Volume 87.5 fL (80.0-94.0); Mean Platelet Volume 9.9 fL (9.5-13.5); Monocytes Absolute Auto 0.4 10^3/uL (0.3-0.8); Monocytes Percent Auto 8.1 % (1.7-12.0); Neutrophils Absolute Auto 2.6 10^3/uL (1.4-6.5); Neutrophils Percent Auto 58.7 % (43.0-75.0); Platelet Count 240 10^3/uL (150-450); Red Blood Count 5.42 10^6/uL (4.70-6.10); Red Cell Distribution Width 12.4 % (11.0-15.0); White Blood Count 4.5 10^3/uL (4.0-11.0)
[2024-08-15 07:50] LABS: Creatinine Urine Random 123.63 mg/dL (20.00-300.00); Protein Creatinine Ratio Urine 0.12; Total Protein Urine Random 14.4 mg/dL (<=11.9)
[2024-08-15 08:48] LABS: Alanine Aminotransferase 25 U/L (16-63); Albumin Level 3.9 g/dL (3.4-5.0); Alkaline Phosphatase 107 U/L (46-116); Anion Gap 13.3; Aspartate Amino Transferase 19 U/L (15-37); BUN Creatinine Ratio 11.5; Bilirubin Direct 0.2 mg/dL (0.0-0.2); Calcium 9.7 mg/dL (8.5-10.1); Carbon Dioxide 27.6 mmol/L (21.0-32.0); Chloride 105 mmol/L (98-107); Estimated GFR (African America >60 (>=60); Estimated GFR (Non-African Ame >60 (>=60); Gamma Glutamyl Transpeptidase 19 U/L (15-85); Glucose 111 mg/dL (74-106); Magnesium 1.8 mg/dL (1.8-2.4); Potassium 3.9 mmol/L (3.5-5.1); Sodium 142 mmol/L (136-145)
[2024-08-18 01:07] LABS: Tacrolimus (FK506), Blood 3.8 ng/mL (2.0-20.0)
== END 2024-08-15 06:48 | disposition home or self-care (01) ==
LOC: LAB 06:49
PROVIDERS: PCP Nurse Practitioner
DX: B39.9 Histoplasmosis, unspecified (principal); Z94.4 Liver transplant status; Z94.0 Kidney transplant status; R79.9 Abnormal finding of blood chemistry, unspecified; D84.9 Immunodeficiency, unspecified; Z48.298 Encounter for aftercare following other organ transplant
CPT/HCPCS: 36415; 80048; 80189; 80197; 82042; 82247; 82248; 82570; 82977; 83735; 84075; 84156; 84450; 84460; 85025

== ENCOUNTER 2024-08-29 06:50 | Outpatient (OUT) | payer MEDICARE, MEDICAID, SELFPAY ==
--- OUTSIDE RECORDS SUMMARY | 2024-08-29 06:59 | XMS_ITS | CCD ---
Author Organization [facility] ion [facility] Care Team Providers Care Welt Butter Hand Name Role Phone Kiana Zuly Unavailable Unavailable Primary Care Provider Unavailabl e KASDEYVII ROB Referring Unavailable KASMANI, ROB Referring Unavailable KASMANI, ROB Referring Unavailable RIST, RENA Referring Unavailable TANA CAMPA Referring Unavailable RIST, RENA Referring Unavailable RIST, RENA Referring Unavailable RIST, RENA Referring Unavailable RIST, RENA Referring Unavailable PEPE CASE Attending Unavailable PEPE CASE Admitting Unavailable AICHHOLZ, ZULY Referring Unavailable AICHHOLZ, ZULY Primary Care Unavailable Aichholz [facility], Zuly Primary Care Provider Miguel [facility] [phone] Shirin [facility],PharmD, Angel Unavailable Unavailab makayla Leigh [facility],PharmD, Te Unavailable Unavai lable [facility], Zuly Primary Care Provider CRISTINA, DR BURCH Admitting Unavailable MISC, DR BURCH Consulting Unavailable AICHHOLZ, THREAD TWISTER ZULY Primary Care Unavailable MISC, DR BURCH Attending Unavailable MISC, DR BURCH Admitting Unavailable MISC, DR BURCH Consulting Unavailable AICHHOLZ, THREAD TWISTER ZULY Primary Care Unavailable MISC, DR BURCH Attending Unavailable ARCELIA PIZARRO Consulting Unavailable KE BURNHAM Attending Unavailable KE BURNHAM Admitting Unavailable BARBARA, DR MÓNICA Munoz Consulting Unavailable AICHHOLZ, THREAD TWISTER ZULY Primary Care Unavailable KE BURNHAM Consulting Unavailable MISC, DR BURCH Consulting Unavailable MISC, DR BURCH Attending Unavailable AICHHOLZ, THREAD TWISTER ZULY Primary Care Unavailable MISC, DR DOCTOR Admitting Unavailable MISC, DR DOCTOR Consulting Unavailable MISC, DR DOCTOR Attending Unavailable AICHHOLZ, THREAD TWISTER ZULY Primary Care Unavailable MISC, DR BURCH Admitting Unavailable MISC, DR DOCTOR Consulting Unavailable AICHHOLZ, THREAD TWISTER ZULY Primary Care Unavailable MISC, DR DOCTOR Admitting Unavailable MISC, DR DOCTOR Attending Unavailable MELINDA, DR GEORGE Munoz Consulting Unavailable MELINDA, DR GEORGE Munoz Attending Unavailable AICHHOLZ, THREAD TWISTER ZULY Primary Care Unavailable MELINDA, DR GEORGE Munoz Admitting Unavailable NAUN ., KE Consulting Unavailable MIRANDA, LYNDSAY Consulting Unavailable MELINDA, DR GEORGE Munoz Consulting Unavailable NAUN ., KE Attending Unavailable NAUN ., KE Admitting Unavailable AICHHOLZ, THREAD TWISTER ZULY Primary Care Unavailable NAUN ., KE Consulting Unavailable GIAN HERRING Consulting Unavailable AICHHOLZ, THREAD TWISTER ZULY Consulting Unavailable AICHHOLZ, THREAD TWISTER ZULY Attending Unavailable AICHHOLZ, THREAD TWISTER ZULY Admitting Unavailable AICHHOLZ, THREAD TWISTER ZULY Primary Care Unavailable MISC, DR BURCH Consulting Unavailable MISC, DOCTOR Admitting Unavailable MISC, DOCTOR Attending Unavailable AICHHOLZ, THREAD TWISTER ZULY Primary Care Unavailable MISC, DR DOCTOR Consulting Unavailable MISC, DR DOCTOR Attending Unavailable MISC, DR DOCTOR Admitting Unavailable AICHHOLZ, THREAD TWISTER ZULY Primary Care Unavailable MISC, DOCTOR Admitting Unavailable MISC, DR BURCH Consulting Unavailable MISC, DR DOCTOR Attending Unavailable AICHHOLZ, THREAD TWISTER ZULY Primary Care Unavailable MISC, DR DOCTOR Admitting Unavailable MISC, DR DOCTOR Consulting Unavailable AICHHOLZ, THREAD TWISTER ZULY Primary Care Unavailable MISC, DR DOCTOR Attending Unavailable MISC, DR DOCTOR Admitting Unavailable MISC, DR DOCTOR Consulting Unavailable AICHHOLZ, THREAD TWISTER ZULY Primary Care Unavailable MISC, DR DOCTOR Attending Unavailable AICHHOLZ, THREAD TWISTER ZULY Consulting Unavailable AICHHOLZ, THREAD TWISTER ZULY Attending Unavailable AICHHOLZ, THREAD TWISTER ZULY Admitting Unavailable AICHHOLZ, THREAD TWISTER ZULY Primary Care Unavailable DR MÓNICA JIMENEZ Consulting Unavailable Aichholz THREAD TWISTER, Zuly Primary Care Provider Tran White DOs Tray Unavailable Aicholz [facility], Zuly Primary Care Provider [phone] Tran White DOs A Unavailable Momo Verdugo MD Primary Care Provider Aichholz ROB, Zuly Primary Care Provider [phone] MIGUEL CARDONA Attending Unavailable YEISON, STEVE S Attending Unavailable YESION, STEVE S Referring Unavailable AICHHOLZ, ZULY Primary [...] A Attending Unavailable SELF, SELF Referring Unavailable NIKI, [...] AICHHOLZ, ZULY Primary Care Unavailable DAISHA MAX Attending Unavailable SELF, SELF Referring Unavailable AICHHOLZ, ZULY Primary Care Unavailable AICHHOLZ, ZULY Attending Unavailable AICHHOLZ, ZULY Attending Unavailable PALMA PALACIOS Attending Unavailable AICHHOLZ, ZULY Referring Unavailable KELKARENYFIDELINA Attending Unavailable AICHHOLZ, ZULY Referring Unavailable BRJOHNNA WOMACK Attending Unavailable AICHHOLZ, ZULY Referring Unavailable BRINKJOHNNA Attending Unavailable AICHHOLZ, ZULY Referring Unavailable BRINKJOHNNA Attending Unavailable AICHHOLZ, ZULY Referring Unavailable BRINKJOHNNA Attending Unavailable AICHHOLZ, ZULY Referring Unavailable BAKARIY, FIDELINA Attending Unavailable AICHHOLZ, ZULY Referring Unavailable BRINKJOHNNA Attending Unavailable AICHHOLZ, ZULY Referring Unavailable BRINK, JOHNNA Attending Unavailable ZULY BRUNO Referring Unavailable JOHNNA HOLLIDAY Attending Unavailable ZULY BRUNO Referring Unavailable ZULY BRUNO Attending Unavailable ZULY BRUNO Attending Unavailable ZULY BRUNO Attending Unavailable Clementina Montesinos Attending Unavailable ZULY BRUNO J Referring Unavailable Allergies Allergy Classification Reported Allergen(s) Allergy Type Date of Onset Reaction(s) Facility (2 sources) Shellfish; Translations: [SHELLFISH DERIVED] Propensity to adverse reactions (disorder) 8 [facility] Repository (20 sources) Shellfish-Derive d Products Propensity to adverse reactions to drug 9 [facility] (1 source) Shellfish Drug allergy (disorder) The [facility] Repository Medications Current Medications Medication Drug [...] 1 capsule by mouth once daily b hokqjft-R-hyhql acid (NEPHROCAPS) 1 MG capsule Take 1 [...] ankle pain. 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 White - [phone] Transplant Neph - [phone] Each 09/10/2023 01/19/2024 Discontinued (Medication Reconciliation (suppress cancel msg)) Start: 09-10-2023 CUSTOM MEDICAT ION Labs to be obtained: 1- Tacrolimus level, trough - collect twice weekly until 09/24/23, then weekly until 10/08/23, them once every two weeks there after. 2- Itraconazole level - obtain once between 09/14-09/18. 3- Chem 6 - Obtain weekly while on itraconazole Fax results to: Dr. White - [phone] Transplant [facility] - [phone] Each 0 09/10/2023 Active Diatrizoate (1 [...] 05/20/2022 01/16/2023 Discontinued take 2 tablets by [facility] in the morning magnesium oxide (Mag-Ox) 400 MG tablet Take 2 tablets by mouth in the morning. 0 Active take 1 tablet by [facility] once daily magnesium oxide (MAG-OX) 400 [...] (ROXICODONE) tablet 10 mg polyethylene glycol 3350 97098 mg powder for oral solution (20 sources) [...] D, Starting on Thu09/04/23 at 0926, Until 10/13/23 at 1645, Other, c/f mucus plugging Start: [...] needed. 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 Normal [facility] Office Visiton 05-13-2024 Follow-up visit [id number] George Styles 1970 M Date Provider Department Center 05/13/2024 Júnior-MIGUEL CARDONA [facility] Family History Problem Relation Age of Onset Coronary artery disease Mother Coronary artery disease Father Family Status - Relation Status Age at Mother Father Level of Service:37016 [place] OFFICE/OUTPATIENT ESTABLISHED LOW MDM 20 MIN Reason for Visit and Comments: Follow-up [652674] - Yearly follow up [facility] B-TYPE NATRIURETIC PEPTIDE ( BRAIN)on 02-26-2024 Interpretation and review of laboratory results Normal [facility] Natriuretic peptide B (Bld) [Mass/Vol] 72 pg/mL 0 - 100 pg/mL [facility] Natriuretic peptide B (Bld) [Mass/Vol] 72 pg/mL Normal 0-100 [facility] Comment on above: Performed By: #### B ERP PM ####[facility] (DEFAULT)[address] [place] [address] CHEM 6 (LYTES, BUN CREA)on 0 02-26-2024 Anion gap [Moles/Vol] 13 mmol/L 7 - 17 mmol/L [facility] Chloride [Moles/Vol] 107 mmol/L 98 - 10 8 mmol/L [facility] CO2 [Moles/Vol] 25 mmol/L 21 - 31 mmol/L [facility] Creatinine [Mass/Vol] 1.23 mg/dL 0.70 - 1.30 mg/dL [facility] eGFR, CKD-EPI, Male 70 - PINF [facility] Comment on above: Reported eGFR is bas ed on the CKD-EPI 2020 equation using creatinine, age, and sex. Potassium [Moles/Vol] 4.2 mmol/L 3.5 - 5.0 mmol/L [facility] Sodium [Moles/Vol] 141 mmol/L 135 - 145 mmol/L [facility] Urea nitrogen [Mass/Vol] 17 mg/dL 7 - 25 mg/dL [facility] Urea nitrogen/Creatinine [Mass ratio] 14 mg/mg [facility] Anion gap [Moles/Vol] 13 mmol/L Normal 7-17 [facility] Comment on above: Performed By: #### C HM6 ####[facility] (DEFAULT)[address] [place] [address] Chloride [Moles/Vol] 107 mmol/L Normal 98-108 [facility] Comment on above: Performed By: #### C HM6 ####[facility] (DEFAULT)[address] [place] [address] CO2 [Moles/Vol] 25 mmol/L Normal 21-31 [facility] Comment on above: Performed By: #### C HM6 ####[facility] (DEFAULT)[address] [place] [address] Creatinine [Mass/Vol] 1.23 mg/dL Normal 0.70-1.30 [facility] Comment on above: Performed By: #### C HM6 ####[facility] (DEFAULT)[address] [place] [address] GFR/1.73 sq M.predicted among non-blacks MDRD (S/P/Bld) [Vol rate/Area] 70 mL/min/{1.73_m2} Normal >=60 [facility] Comment on above: Result Comment: Repo rted eGFR is based on the CKD-EPI 2020 equation using creatinine, age, and sex. Performed By: #### C HM6 ####[facility] (DEFAULT)[address] [place] [address] Potassium [Moles/Vol] 4.2 mmol/L Normal 3.5-5.0 [facility] Comment on above: Performed By: #### C HM6 ####[facility] (DEFAULT)[address] [place] [address] Sodium [Moles/Vol] 141 mmol/L Normal 135-145 [facility] Comment on above: Performed By: #### C HM6 ####[facility] (DEFAULT)[address] [place] [address] Urea nitrogen [Mass/Vol] 17 mg/dL Normal 7-25 [facility] Comment on above: Performed By: #### C HM6 ####[facility] (DEFAULT)[address] [place] [address] Urea nitrogen/Creatinine [Mass ratio] 14 mg/mg Normal [facility] Comment on above: Performed By: #### C 6 ####[facility] (DEFAULT)[address] [place] [address] CBC,PLATELETSon 01-23-2024 Erythrocyte distribution width (RBC) [Ratio] 14.2 % 10.9 - 14.3 % [facility] Hematocrit (Bld) [Volume fraction] 37.0 % Low 39.6 - 48.8 % [facility] Hemoglobin (Bld) [Mass/Vol] 12.0 g/dL Low 13.4 - 16.8 g/dL [facility] Interpretation and review of laboratory results Abnormal [facility] MCH (RBC) [Entitic mass] 28.6 pg 26.1 - 33.[address] [facility] MCHC (RBC) [Mass/Vol] 32.4 g/dL 31.9 - 36.5 g/dL [facility] MCV (RBC) [Entitic vol] 88.1 fL 79.0 - 94.[address] [facility] Platelet mean volume (Bld) [Entitic vol] 10.4 fL 8.7 - 12.[address] [facility] Platelets (Bld) [#/Vol] 170 10*3/uL 146 - 337 K/uL [facility] RBC (Bld) [#/Vol] 4.20 10*6/uL Low [facility] WBC (Bld) [#/Vol] 3.70 10*3/uL Low 3.73 - 10. 10 K/uL [facility] Hematocrit (Bld) [Volume fraction] 37.0 % Low 39.6-48.8 [facility] Comment on above: Performed By: #### [facility] ####[facility] (DEFAULT)[address] [place] [address] Hemoglobin (Bld) [Mass/Vol] 12.0 g/dL Low 13.4-16.8 [facility] Comment on above: Performed By: #### H EMO ####[facility] (DEFAULT)[address] [place] [address] MCV (RBC) [Entitic vol] 88.1 fL Normal 79.0-94.5 [facility] Comment on above: Performed By: #### H EMOGC ####[facility] (DEFAULT)[address] [place] [address] Mean Cell Hgb 28.6 pg Normal 26.1-33.3 [facility] Comment on above: Performed By: #### H EMOGC ####[facility] (DEFAULT)[address] [place] [address] Mean Cell Hgb Conc 32.4 g/dL Normal 31.9-36.5 [facility] Comment on above: Performed By: #### H EMOGC ####[facility] (DEFAULT)[address] [place] [address] Platelet mean volume (Bld) [Entitic vol] 10.4 fL Normal 8.7-12.3 [facility] Comment on above: Performed By: #### H EMOGC ####[facility] (DEFAULT)[address] [place] [address] Platelets (Bld) [#/Vol] 170 10*3/uL Normal 146-337 [facility] Comment on above: Performed By: #### H EMOGC ####[facility] (DEFAULT)[address] [place] [address] RBC (Bld) [#/Vol] 4.20 10*6/uL Low 4.38-5.83 [facility] Comment on above: Performed By: #### H EMOGC ####[facility] (DEFAULT)[address] [place] [address] RBC Distribution 14.2 % Normal 10.9-14.3 [facility] Comment on above: Performed By: #### H EMOGC ####[facility] (DEFAULT)[address] [place] [address] WBC (Bld) [#/Vol] 3.70 10*3/uL Low 3.73-10.10 [facility] Comment on above: Performed By: #### [facility] ####[facility] (DEFAULT)[address] [place] [address] CHEM 7 (LYTES,BUN,CREA,GLUC) on 01-23-2024 Anion gap [Moles/Vol] 14 mmol/L 7 - 17 mmol/L [facility] Chloride [Moles/Vol] 105 mmol/L 98 - 10 8 mmol[facility]L [facility] CO2 [Moles/Vol] 25 mmol/L 21 - 31 mmol/L [facility] Creatinine [Mass/Vol] 1.32 mg/dL High 0.70 - 1.30 mg/dL [facility] eGFR, CKD-EPI, Male 65 - PINF [facility] Comment on above: Reported eGFR is bas ed on the CKD-EPI 2020 equation using creatinine, age, and sex. Glucose [Mass/Vol] 94 mg/dL 70 - 99 mg/dL [facility] Osmolality Calc [Osmolality] [address] [facility] Potassium [Moles/Vol] 3.8 mmol/L 3.5 - 5.0 mmol/L [facility] Sodium [Moles/Vol] 140 mmol/L 135 - 145 mmol/L [facility] Urea nitrogen [Mass/Vol] 23 mg/dL 7 - 25 mg/dL [facility] Urea nitrogen/Creatinine [Mass ratio] 17 mg/mg [facility] Anion gap [Moles/Vol] 14 mmol/L Normal 7-17 [facility] Comment on above: Performed By: #### M NATHANIEL BLOOM, HFP ####[facility] (DEFAULT)[address] [place] [address] Chloride [Moles/Vol] 105 mmol/L Normal 98-108 [facility] Comment on above: Performed By: #### NATHANIEL RAMÍREZ, HFP ####[facility] (DEFAULT)[address] [place] [address] CO2 [Moles/Vol] 25 mmol/L Normal 21-31 [facility] Comment on above: Performed By: #### NATHANIEL RAMÍREZ, HFP ####[facility] (DEFAULT)[address] [place] [address] Creatinine [Mass/Vol] 1.32 mg/dL High 0.70-1.30 [facility] Comment on above: Performed By: #### NATHANIEL RAMÍREZ, HFP ####[facility] (DEFAULT)[address] [place] [address] GFR/1.73 sq M.predicted among non-blacks MDRD (S/P/Bld) [Vol rate/Area] 65 mL/min/{1.73_m2} Normal >=60 [facility] Comment on above: Result Comment: Repo rted eGFR is based on the CKD-EPI 2020 equation using creatinine, age, and sex. Performed By: #### NATHANIEL RAMÍREZ, HFP ####[facility] (DEFAULT)[address] [place] [address] Glucose [Mass/Vol] 94 mg/dL Normal 70-99 [facility] Comment on above: Performed By: #### NATHANIEL RAMÍREZ, HFP ####[facility] (DEFAULT)[address] [place] [address] Osmolality [Osmolality] 296 mosm/kg Normal 278-305 [facility] Comment on above: Performed By: #### NATHANIEL RAMÍREZ, HFP ####[facility] (DEFAULT)[address] [place] [address] Potassium [Moles/Vol] 3.8 mmol/L Normal 3.5-5.0 [facility] Comment on above: Performed By: #### NATHANIEL RAMÍREZ, HFP ####[facility] (DEFAULT)[address] [place] [address] Sodium [Moles/Vol] 140 mmol/L Normal 135-145 [facility] Comment on above: Performed By: #### M NATHANIEL BLOOM, HFP ####[facility] (DEFAULT)[address] [place] [address] Urea nitrogen [Mass/Vol] 23 mg/dL Normal 7-25 [facility] Comment on above: Performed By: #### NATHANIEL RAMÍREZ, HFP ####[facility] (DEFAULT)[address] [place] [address] Urea nitrogen/Creatinine [Mass ratio] 17 mg/mg Normal [facility] Comment on above: Performed By: #### NATHANIEL RAMÍREZ, HFP ####[facility] (DEFAULT)[address] [place] [address] GLUCOSE POCon 01-23-2024 Glucose [Mass/Vol] 88 mg/dL 70 - 99 mg/dL [facility] POC Sample Type CAPBL [facility] Test performed at ad dress of the patient encounter. [facility] Glucose [Mass/Vol] 191 mg/dL High 70 - 99 mg/dL [facility] Interpretation and review of laboratory results Abnormal [facility] POC Sample Type CAPBL [facility] Test performed at ad dress of the patient encounter. [facility] HEPATIC FUNCTION PANELon Albumin [Mass/Vol] 3.9 g/dL 3.5 - 5.0 g/dL [facility] ALP [Catalytic activity/Vol] 83 U/L 32 - 126 U/L [facility] ALT [Catalytic activity/Vol] 9 U/L Low 10 - 52 U/L [facility] AST [Catalytic activity/Vol] 17 U/L 10 - 39 U/L [facility] Bilirubin [Mass/Vol] 1.6 mg/dL High NINF - 1.5 mg/dL [facility] Bilirubin.direct [Mass/Vol] 0.4 mg/dL High NINF - 0.3 mg/dL [facility] Protein [Mass/Vol] 6.6 g/dL 6.4 - 8.3 g/dL [facility] Albumin [Mass/Vol] 3.9 g/dL Normal 3.5-5.0 [facility] Comment on above: Performed By: #### Rod BLOOM CHM7, HFP ####[facility] (DEFAULT)[address] [place] [address] ALP [Catalytic activity/Vol] 83 U/L Normal 32-126 [facility] Comment on above: Performed By: #### TJ RAMÍREZ7, HFP ####[facility] (DEFAULT)[address] [place] [address] ALT [Catalytic activity/Vol] 9 U/L Low 10-52 [facility] Comment on above: Performed By: #### Rod BLOOM CHM7, HFP ####[facility] (DEFAULT)[address] [place] [address] AST [Catalytic activity/Vol] 17 U/L Normal 10-39 [facility] Comment on above: Performed By: #### Rod BLOOM CHM7, HFP ####[facility] (DEFAULT)[address] [place] [address] Bilirubin [Mass/Vol] 1.6 mg/dL High <1.5 [facility] Comment on above: Performed By: #### Rod BLOOM CHM7, HFP ####[facility] (DEFAULT)[address] [place] [address] Bilirubin.indirect [Mass/Vol] 0.4 mg/dL High <0.3 [facility] Comment on above: Performed By: #### Rod BLOOM CHM7, HFP ####[facility] (DEFAULT)[address] [place] [address] Protein [Mass/Vol] 6.6 g/dL Normal 6.4-8.3 [facility] Comment on above: Performed By: #### M TJ BLOOM7, HFP ####[facility] (DEFAULT)[address] [place] [address] ITRACONAZOLE LEVELon 024 Hydroxyitraconazole [Mass/Vol] 7.6 mcg/mL [facility] Comment on above: REFERENCE VALUE No therapeutic range established; activity and serum concentration are similar to parent drug. ADDITIONAL INFORMATION This test was developed and its performance characteristics determined by [facility] in a manner consistent with CLIA requirements. This test has not been cleared or approved by the U.S. Food and Drug Administration. Test Performed by: [facility] [address] [place] [address] Systems Management Consultant: Rosendo Bose M.D. Ph.D.; CLIA# [id number] Itraconazole [Mass/Vol] 6.0 mcg/mL [facility] Comment on above: REFERENCE VALUE >0.5 (localized infection), >1.0 (systemic infection) [facility] MAGNESIUMon 01-23-2024 Interpretation and review of laboratory results Normal [facility] Magnesium [Mass/Vol] 1.8 mg/dL 1.6 - 2 .6 mg/dL [facility] Magnesium [Mass/Vol] 1.8 mg/dL Normal 1.6-2.6 [facility] Comment on above: Performed By: #### M TJ BLOOM7, HFP ####[facility] (DEFAULT)[address] [place] [address] No Panel Informationon 01-23 Interpretation and review of laboratory results Abnormal [facility] TACROLIMUS LEVEL, TROUGH ([place] E DRUG LEVEL)on 01-23-2024 Interpretation and review of laboratory results Normal [facility] Tacrolimus (Bld) [Mass/Vol] 7.0 ng/mL Bone Marrow Transplant: 4.0-12.0, Therapeutic: 5.0-15.[address] [facility] Method performed is a chemiluminescent microparticle immunoasssay on the [employer] i2000. The range is based on experience at [facility] and users should be aware that target concentrations vary widely depending on concomitant therapy, time post-transplant, and desired degree of immunosuppression. [facility] [facility] Tacrolimus, Trough 7.0 ng/mL Normal Bone Susana ow Transplant: 4.0-12.0, Therapeutic: 5.0-15.0 [facility] Comment on above: Order Comment: Pleas e draw at specified interval PRIOR to dose. Do not hold dose to wait for level. Specimens batched twice per day, (M-F) and once per day weekendsMethod performed is a chemiluminescent microparticle immunoasssay on the [employer] i2000.The range is based on experience at [facility] and users should be aware that target concentrations vary widely depending on concomitant therapy, time post-transplant, and desired degree of immunosuppression. Performed By: #### T ACRO ####[facility] (DEFAULT)[address] [place] [address] CARDIAC RHYTHM (SCANNED)on 0 01-22-[address] [facility] CBC,PLATELETSon 01-22-2024 Erythrocyte distribution width (RBC) [Ratio] 14.1 % 10.9 - 14.3 % [facility] Hematocrit (Bld) [Volume fraction] 41.5 % 39.6 - 48.8 % [facility] Hemoglobin (Bld) [Mass/Vol] 13.3 g/dL Low 13.4 - 16.8 g/dL [facility] Interpretation and review of laboratory results Abnormal [facility] MCH (RBC) [Entitic mass] 27.8 pg 26.1 - 33.[address] [facility] MCHC (RBC) [Mass/Vol] 32.0 g/dL 31.9 - 36.5 g/dL [facility] MCV (RBC) [Entitic vol] 86.8 fL 79.0 - 94.[address] [facility] Platelet mean volume (Bld) [Entitic vol] 10.5 fL 8.7 - 12.[address] [facility] Platelets (Bld) [#/Vol] 186 10*3/uL 146 - 337 K/uL [facility] RBC (Bld) [#/Vol] 4.78 10*6/uL [facility] WBC (Bld) [#/Vol] 3.74 10*3/uL 3.73 - 10. 10 K/uL [facility] Hematocrit (Bld) [Volume fraction] 41.5 % Normal 39.6-48.8 [facility] Comment on above: Performed By: #### [facility] ####[facility] (DEFAULT)[address] [place] [address] Hemoglobin (Bld) [Mass/Vol] 13.3 g/dL Low 13.4-16.8 [facility] Comment on above: Performed By: #### H EMO ####[facility] (DEFAULT)[address] [place] [address] MCV (RBC) [Entitic vol] 86.8 fL Normal 79.0-94.5 [facility] Comment on above: Performed By: #### H EMO ####[facility] (DEFAULT)[address] [place] [address] Mean Cell Hgb 27.8 pg Normal 26.1-33.3 [facility] Comment on above: Performed By: #### H EMO ####[facility] (DEFAULT)[address] [place] [address] Mean Cell Hgb Conc 32.0 g/dL Normal 31.9-36.5 [facility] Comment on above: Performed By: #### H EMOGC ####[facility] (DEFAULT)[address] [place] [address] Platelet mean volume (Bld) [Entitic vol] 10.5 fL Normal 8.7-12.3 [facility] Comment on above: Performed By: #### H EMO ####[facility] (DEFAULT)[address] [place] [address] Platelets (Bld) [#/Vol] 186 10*3/uL Normal 146-337 [facility] Comment on above: Performed By: #### H EMOGC ####[facility] (DEFAULT)[address] [place] [address] RBC (Bld) [#/Vol] 4.78 10*6/uL Normal 4.38-5.83 [facility] Comment on above: Performed By: #### H EMO ####[facility] (DEFAULT)[address] [place] [address] RBC Distribution 14.1 % Normal 10.9-14.3 [facility] Comment on above: Performed By: #### H EMOGC ####[facility] (DEFAULT)[address] [place] [address] WBC (Bld) [#/Vol] 3.74 10*3/uL Normal 3.73-10.10 [facility] Comment on above: Performed By: #### H EMOGC ####[facility] (DEFAULT)[address] [place] [address] CHEM 7 (LYTES,BUN,CREA,GLUC) on 01-22-2024 Anion gap [Moles/Vol] 13 mmol/L 7 - 17 mmol/L [facility] Chloride [Moles/Vol] 109 mmol/L High 98 - 10 8 mmol/L [facility] CO2 [Moles/Vol] 23 mmol/L 21 - 31 mmol/L [facility] Creatinine [Mass/Vol] 1.10 mg/dL 0.70 - 1.30 mg/dL [facility] eGFR, CKD-EPI, Male 81 - PINF [facility] Comment on above: Reported eGFR is bas ed on the CKD-EPI 2020 equation using creatinine, age, and sex. Glucose [Mass/Vol] 84 mg/dL 70 - 99 mg/dL [facility] Interpretation and review of laboratory results Abnormal [facility] Osmolality Calc [Osmolality] [address] [facility] Potassium [Moles/Vol] 4.0 mmol/L 3.5 - 5.0 mmol/L [facility] Sodium [Moles/Vol] 141 mmol/L 135 - 145 mmol/L [facility] Urea nitrogen [Mass/Vol] 16 mg/dL 7 - 25 mg/dL [facility] Urea nitrogen/Creatinine [Mass ratio] 15 mg/mg [facility] Anion gap [Moles/Vol] 13 mmol/L Normal 7-17 [facility] Comment on above: Performed By: #### Rod BLOOM CHM7 ####[facility] (DEFAULT)[address] [place] [address] Chloride [Moles/Vol] 109 mmol/L High 98-108 [facility] Comment on above: Performed By: #### Rod BLOOM CHM7 ####[facility] (DEFAULT)[address] [place] [address] CO2 [Moles/Vol] 23 mmol/L Normal 21-31 [facility] Comment on above: Performed By: #### Rod BLOOM CHM7 ####[facility] (DEFAULT)[address] [place] [address] Creatinine [Mass/Vol] 1.10 mg/dL Normal 0.70-1.30 [facility] Comment on above: Performed By: #### Rod BLOOM CHM7 ####[facility] (DEFAULT)[address] [place] [address] GFR/1.73 sq M.predicted among non-blacks MDRD (S/P/Bld) [Vol rate/Area] 81 mL/min/{1.73_m2} Normal >=60 [facility] Comment on above: Result Comment: Repo rted eGFR is based on the CKD-EPI 2020 equation using creatinine, age, and sex. Performed By: #### TJ RAMÍREZ7 ####[facility] (DEFAULT)[address] [place] [address] Glucose [Mass/Vol] 84 mg/dL Normal 70-99 [facility] Comment on above: Performed By: #### TJ RAMÍREZ7 ####[facility] (DEFAULT)[address] [place], [place] [address], [place] [address] Osmolality [Osmolality] 295 mosm/kg Normal 278-305 [facility] Comment on above: Performed By: #### TJ RAMÍREZ7 ####[facility] (DEFAULT)[address] [place], [place] [address], [place] [address] Potassium [Moles/Vol] 4.0 mmol/L Normal 3.5-5.0 [facility] Comment on above: Performed By: #### NATHANIEL RAMÍREZ ####[facility] (DEFAULT)[address] [place] [address] Sodium [Moles/Vol] 141 mmol/L Normal 135-145 [facility] Comment on above: Performed By: #### TJ RAMÍREZ7 ####[facility] (DEFAULT)[address] [place] [address] Urea nitrogen [Mass/Vol] 16 mg/dL Normal 7-25 [facility] Comment on above: Performed By: #### TJ RAMÍREZ7 ####[facility] (DEFAULT)[address] [place] [address] Urea nitrogen/Creatinine [Mass ratio] 15 mg/mg Normal [facility] Comment on above: Performed By: #### TJ RAMÍREZ7 ####[facility] (DEFAULT)[address] [place] [address] MAGNESIUMon 01-22-2024 Interpretation and review of laboratory results Normal [facility] Magnesium [Mass/Vol] 2.0 mg/dL 1.6 - 2 .6 mg/dL [facility] Magnesium [Mass/Vol] 2.0 mg/dL Normal 1.6-2.6 [facility] Comment on above: Performed By: #### M NATHANIEL BLOOM ####[facility] (DEFAULT)[address] [place] [address] No Panel Informationon 01-[address] [facility] PT,INR,PTTon 01-22-2024 aPTT Coag (PPP) [Time] 29.[address] [facility] INR Coag (Bld) [Relative time] 1.1 {INR} 0.9 - 1.[address] [facility] Interpretation and review of laboratory results Abnormal [facility] PT Coag (PPP) [Time] 14.3 s High [facility] aPTT Coag (Bld) [Time] 29.2 s Normal 24.0-34.3 [facility] Comment on above: Performed By: #### P TPTT ####[facility] (DEFAULT)[address] [place] [address] INR Coag (PPP) [Relative time] 1.1 {INR} Normal 0.9-1.1 [facility] Comment on above: Performed By: #### P TPTT ####[facility] (DEFAULT)[address] [place] [address] PT Coag (PPP) [Time] 14.3 s High 11.9-14.2 [facility] Comment on above: Performed By: #### P TPTT ####[facility] (DEFAULT)[address] [place] [address] TACROLIMUS LEVEL, TROUGH ([place] E DRUG LEVEL)Ordered By: Sheree Jensen on 01-22-2024 Interpretation and review of laboratory results Normal [facility] Tacrolimus (Bld) [Mass/Vol] 7.9 ng/mL Bone Marrow Transplant: 4.0-12.0, Therapeutic: 5.0-15.[address] [facility] Method performed is a chemiluminescent microparticle immunoasssay on the [employer] i2000. The range is based on experience at [facility] and users should be aware that target concentrations vary widely depending on concomitant therapy, time post-transplant, and desired degree of immunosuppression. [facility] TACROLIMUS LEVEL, TROUGH ([place] E DRUG LEVEL)on 01-22-2024 Tacrolimus, Trough 7.9 ng/mL Normal Bone Susana ow Transplant: 4.0-12.0, Therapeutic: 5.0-15.0 [facility] Comment on above: Order Comment: Pleas e draw at specified interval PRIOR to dose. Do not hold dose to wait for level. Specimens batched twice per day, (M-) and once per day weekendsMethod performed is a chemiluminescent microparticle immunoasssay on the [employer] i2000.The range is based on experience at [facility] and users should be aware that target concentrations vary widely depending on concomitant therapy, time post-transplant, and desired degree of immunosuppression. Performed By: #### T ACRO ####[facility] (DEFAULT)[address] [place] [address] TYPE AND SCREENon 01-22-2024 ABO/RH(D) TYPE Positive [facility] ABO/RH(D) TYPE Positive Normal [facility] Comment on above: Performed By: #### X M ####[facility] (DEFAULT)[address] [place] [address] [place] Unspecified body regionOr dered By: Unassigned Pacs on 01-22-[address] [facility] Work Phone: [place] Unspecified body regionon 01-22-2024 Radiology Study observation (narrative) [facility] CBC,PLATELETSon 01-21-2024 Erythrocyte distribution width (RBC) [Ratio] 14.0 % 10.9 - 14.3 % [facility] Hematocrit (Bld) [Volume fraction] 39.4 % Low 39.6 - 48.8 % [facility] Hemoglobin (Bld) [Mass/Vol] 12.7 g/dL Low 13.4 - 16.8 g/dL [facility] Interpretation and review of laboratory results Abnormal [facility] MCH (RBC) [Entitic mass] 28.0 pg 26.1 - 33.[address] [facility] MCHC (RBC) [Mass/Vol] 32.2 g/dL 31.9 - 36.5 g/dL [facility] MCV (RBC) [Entitic vol] 87.0 fL 79.0 - 94.[address] [facility] Platelet mean volume (Bld) [Entitic vol] 10.2 fL 8.7 - 12.[address] [facility] Platelets (Bld) [#/Vol] 157 10*3/uL 146 - 337 K/uL [facility] RBC (Bld) [#/Vol] 4.53 10*6/uL [facility] WBC (Bld) [#/Vol] 3.42 10*3/uL Low 3.73 - 10. 10 K/uL [facility] Hematocrit (Bld) [Volume fraction] 39.4 % Low 39.6-48.8 [facility] Comment on above: Performed By: #### [facility] ####[facility] (DEFAULT)[address] [place] [address] Hemoglobin (Bld) [Mass/Vol] 12.7 g/dL Low 13.4-16.8 [facility] Comment on above: Performed By: #### [facility] ####[facility] (DEFAULT)[address] [place] [address] MCV (RBC) [Entitic vol] 87.0 fL Normal 79.0-94.5 [facility] Comment on above: Performed By: #### [facility] ####[facility] (DEFAULT)[address] [place] [address] Mean Cell Hgb 28.0 pg Normal 26.1-33.3 [facility] Comment on above: Performed By: #### H EMOGC ####[facility] (DEFAULT)[address] [place] [address] Mean Cell Hgb Conc 32.2 g/dL Normal 31.9-36.5 [facility] Comment on above: Performed By: #### H EMOGC ####[facility] (DEFAULT)[address] [place] [address] Platelet mean volume (Bld) [Entitic vol] 10.2 fL Normal 8.7-12.3 [facility] Comment on above: Performed By: #### H EMOGC ####[facility] (DEFAULT)[address] [place] [address] Platelets (Bld) [#/Vol] 157 10*3/uL Normal 146-337 [facility] Comment on above: Performed By: #### H EMOGC ####[facility] (DEFAULT)[address] [place] [address] RBC (Bld) [#/Vol] 4.53 10*6/uL Normal 4.38-5.83 [facility] Comment on above: Performed By: #### H EMOGC ####[facility] (DEFAULT)[address] [place] [address] RBC Distribution 14.0 % Normal 10.9-14.3 [facility] Comment on above: Performed By: #### H EMOGC ####[facility] (DEFAULT)[address] [place] [address] WBC (Bld) [#/Vol] 3.42 10*3/uL Low 3.73-10.10 [facility] Comment on above: Performed By: #### H EMOGC ####[facility] (DEFAULT)[address] [place] [address] CHEM 7 (LYTES,BUN,CREA,GLUC) on 01-21-2024 Anion gap [Moles/Vol] 12 mmol/L 7 - 17 mmol/L [facility] Chloride [Moles/Vol] 107 mmol/L 98 - 10 8 [facility]/L [facility] CO2 [Moles/Vol] 26 mmol/L 21 - 31 mmol/L [facility] Creatinine [Mass/Vol] 1.11 mg/dL 0.70 - 1.30 mg/dL [facility] eGFR, CKD-EPI, Male 80 - PINF [facility] Comment on above: Reported eGFR is bas ed on the CKD-EPI 2020 equation using creatinine, age, and sex. Glucose [Mass/Vol] 93 mg/dL 70 - 99 mg/dL [facility] Osmolality Calc [Osmolality] 295 [facility] Potassium [Moles/Vol] 3.9 mmol/L 3.5 - 5.0 mmol/L [facility] Sodium [Moles/Vol] 141 mmol/L 135 - 145 mmol/L [facility] Urea nitrogen [Mass/Vol] 15 mg/dL 7 - 25 mg/dL [facility] Urea nitrogen/Creatinine [Mass ratio] 14 mg/mg [facility] Anion gap [Moles/Vol] 12 mmol/L Normal 7-17 [facility] Comment on above: Performed By: #### NATHANIEL RAMÍREZ ####[facility] (DEFAULT)[address] [place] [address] Chloride [Moles/Vol] 107 mmol/L Normal 98-108 [facility] Comment on above: Performed By: #### NATHANIEL RAMÍREZ ####[facility] (DEFAULT)[address] [place] [address] CO2 [Moles/Vol] 26 mmol/L Normal 21-31 [facility] Comment on above: Performed By: #### NATHANIEL RAMÍREZ ####[facility] (DEFAULT)[address] [place] [address] Creatinine [Mass/Vol] 1.11 mg/dL Normal 0.70-1.30 [facility] Comment on above: Performed By: #### TJ RAMÍREZ7 ####[facility] (DEFAULT)[address] [place] [address] GFR/1.73 sq M.predicted among non-blacks MDRD (S/P/Bld) [Vol rate/Area] 80 mL/min/{1.73_m2} Normal >=60 [facility] Comment on above: Result Comment: Repo rted eGFR is based on the CKD-EPI 2020 equation using creatinine, age, and sex. Performed By: #### TJ RAMÍREZ7 ####[facility] (DEFAULT)[address] [place] [address] Glucose [Mass/Vol] 93 mg/dL Normal 70-99 [facility] Comment on above: Performed By: #### NATHANIEL RAMÍREZ ####[facility] (DEFAULT)[address] [place] [address] Osmolality [Osmolality] 295 mosm/kg Normal 278-305 [facility] Comment on above: Performed By: #### TJ RAMÍREZ7 ####[facility] (DEFAULT)[address] [place] [address] Potassium [Moles/Vol] 3.9 mmol/L Normal 3.5-5.0 [facility] Comment on above: Performed By: #### Rod BLOOM CHM7 ####[facility] (DEFAULT)[address] [place] [address] Sodium [Moles/Vol] 141 mmol/L Normal 135-145 [facility] Comment on above: Performed By: #### Rod BLOOM CHM7 ####[facility] (DEFAULT)[address] [place] [address] Urea nitrogen [Mass/Vol] 15 mg/dL Normal 7-25 [facility] Comment on above: Performed By: #### M HELEN BLOOMM7 ####[facility] (DEFAULT)[address] [place] [address] Urea nitrogen/Creatinine [Mass ratio] 14 mg/mg Normal [facility] Comment on above: Performed By: #### M HELEN BLOOMM7 ####[facility] (DEFAULT)[address] [place] [address] Cardiac catheterization stud yOrdered By: Kelvin Donohue on 01-21-2024 Body surface area Derived from formula 2.[address] [facility] Work Phone: [facility] Work Phone: Cardiac catheterization stud yon [...] with fistula occlusion Kelvin Donohue MD, MPH [employer] [facility]. Section of Advanced Heart Failure and Transplantation Division of Cardiovascular Diseases [facility] [email or web address] INVASIVE CARDIOVASCULAR PROC EDUREon 01-21-2024 INVASIVE CARDIOVASCULAR PROCEDURE Normal [facility] MAGNESIUMon 01-21-2024 Interpretation and review of laboratory results Abnormal [facility] Magnesium [Mass/Vol] 1.5 mg/dL Low 1.6 - 2 .6 mg/dL [facility] Magnesium [Mass/Vol] 1.5 mg/dL Low 1.6-2.6 [facility] Comment on above: Performed By: #### M MERLE CHM7 ####[facility] (DEFAULT)[address] [place] [address] No Panel Informationon 01-[address] [facility] TACROLIMUS LEVEL, TROUGH ([place] E DRUG LEVEL)on 01-21-2024 Interpretation and review of laboratory results Normal [facility] Tacrolimus (Bld) [Mass/Vol] 7.2 ng/mL Bone Marrow Transplant: 4.0-12.0, Therapeutic: 5.0-15.[address] [facility] Method performed is a chemiluminescent microparticle immunoasssay on the [employer] i2000. The range is based on experience at [facility] and users should be aware that target concentrations vary widely depending on concomitant therapy, time post-transplant, and desired degree of immunosuppression. [facility] Tacrolimus, Trough 7.2 ng/mL Normal Bone Susana ow Transplant: 4.0-12.0, Therapeutic: 5.0-15.0 [facility] Comment on above: Order Comment: Pleas e draw at specified interval PRIOR to dose. Do not hold dose to wait for level. Specimens batched twice per day, (M-) and once per day weekendsMethod performed is a chemiluminescent microparticle immunoasssay on the [employer] i2000.The range is based on experience at [facility] and users should be aware that target concentrations vary widely depending on concomitant therapy, time post-transplant, and desired degree of immunosuppression. Performed By: #### T DUKE ####[facility] (DEFAULT)[address] [place] [address] CBC,PLATELETSon 01-20-2024 Erythrocyte distribution width (RBC) [Ratio] 13.8 % 10.9 - 14.3 % [facility] Hematocrit (Bld) [Volume fraction] 38.9 % Low 39.6 - 48.8 % [facility] Hemoglobin (Bld) [Mass/Vol] 12.5 g/dL Low 13.4 - 16.8 g/dL [facility] Interpretation and review of laboratory results Abnormal [facility] MCH (RBC) [Entitic mass] 28.0 pg 26.1 - 33.[address] [facility] MCHC (RBC) [Mass/Vol] 32.1 g/dL 31.9 - 36.5 g/dL [facility] MCV (RBC) [Entitic vol] 87.2 fL 79.0 - 94.[address] [facility] Platelet mean volume (Bld) [Entitic vol] 10.2 fL 8.7 - 12.[address] [facility] Platelets (Bld) [#/Vol] 166 10*3/uL 146 - 337 K/uL [facility] RBC (Bld) [#/Vol] 4.46 10*6/uL [facility] WBC (Bld) [#/Vol] 3.79 10*3/uL 3.73 - 10. 10 K/uL [facility] Hematocrit (Bld) [Volume fraction] 38.9 % Low 39.6-48.8 [facility] Comment on above: Performed By: #### [facility] ####[facility] (DEFAULT)[address] [place] [address] Hemoglobin (Bld) [Mass/Vol] 12.5 g/dL Low 13.4-16.8 [facility] Comment on above: Performed By: #### [facility] ####[facility] (DEFAULT)[address] [place] [address] MCV (RBC) [Entitic vol] 87.2 fL Normal 79.0-94.5 [facility] Comment on above: Performed By: #### [facility] ####[facility] (DEFAULT)[address] [place] [address] Mean Cell Hgb 28.0 pg Normal 26.1-33.3 [facility] Comment on above: Performed By: #### H EMOGC ####[facility] (DEFAULT)[address] [place] [address] Mean Cell Hgb Conc 32.1 g/dL Normal 31.9-36.5 [facility] Comment on above: Performed By: #### H EMOGC ####[facility] (DEFAULT)[address] [place] [address] Platelet mean volume (Bld) [Entitic vol] 10.2 fL Normal 8.7-12.3 [facility] Comment on above: Performed By: #### H EMOGC ####[facility] (DEFAULT)[address] [place] [address] Platelets (Bld) [#/Vol] 166 10*3/uL Normal 146-337 [facility] Comment on above: Performed By: #### H EMOGC ####[facility] (DEFAULT)[address] [place] [address] RBC (Bld) [#/Vol] 4.46 10*6/uL Normal 4.38-5.83 [facility] Comment on above: Performed By: #### H EMOGC ####[facility] (DEFAULT)[address] [place] [address] RBC Distribution 13.8 % Normal 10.9-14.3 [facility] Comment on above: Performed By: #### H EMOGC ####[facility] (DEFAULT)[address] [place] [address] WBC (Bld) [#/Vol] 3.79 10*3/uL Normal 3.73-10.10 [facility] Comment on above: Performed By: #### H EMOGC ####[facility] (DEFAULT)[address] [place] [address] CHEM 7 (LYTES,BUN,CREA,GLUC) on 01-20-2024 Anion gap [Moles/Vol] 12 mmol/L 7 - 17 mmol/L [facility] Chloride [Moles/Vol] 105 mmol/L 98 - 10 8 mmol/L [facility] CO2 [Moles/Vol] 28 mmol/L 21 - 31 mmol/L [facility] Creatinine [Mass/Vol] 1.12 mg/dL 0.70 - 1.30 mg/dL [facility] eGFR, CKD-EPI, Male 79 - PINF [facility] Comment on above: Reported eGFR is bas ed on the CKD-EPI 2020 equation using creatinine, age, and sex. Glucose [Mass/Vol] 88 mg/dL 70 - 99 mg/dL [facility] Osmolality Calc [Osmolality] [address] [facility] Potassium [Moles/Vol] 3.8 mmol/L 3.5 - 5.0 mmol/L [facility] Sodium [Moles/Vol] 141 mmol/L 135 - 145 mmol/L [facility] Urea nitrogen [Mass/Vol] 15 mg/dL 7 - 25 mg/dL [facility] Urea nitrogen/Creatinine [Mass ratio] 13 mg/mg [facility] Anion gap [Moles/Vol] 12 mmol/L Normal 7-17 [facility] Comment on above: Performed By: #### TAVO RAMÍREZ, CHM7 ####[facility] (DEFAULT)[address] [place] [address] Chloride [Moles/Vol] 105 mmol/L Normal 98-108 [facility] Comment on above: Performed By: #### TAVO RAMÍREZ, CHM7 ####[facility] (DEFAULT)[address] [place] [address] CO2 [Moles/Vol] 28 mmol/L Normal 21-31 [facility] Comment on above: Performed By: #### TAVO RAMÍREZ, CHM7 ####[facility] (DEFAULT)[address] [place] [address] Creatinine [Mass/Vol] 1.12 mg/dL Normal 0.70-1.30 [facility] Comment on above: Performed By: #### TAVO RAMÍREZ CHM7 ####[facility] (DEFAULT)[address] [place] [address] GFR/1.73 sq M.predicted among non-blacks MDRD (S/P/Bld) [Vol rate/Area] 79 mL/min/{1.73_m2} Normal >=60 [facility] Comment on above: Result Comment: Repo rted eGFR is based on the CKD-EPI 2020 equation using creatinine, age, and sex. Performed By: #### TAVO RAMÍREZ CHM7 ####[facility] (DEFAULT)[address] [place] [address] Glucose [Mass/Vol] 88 mg/dL Normal 70-99 [facility] Comment on above: Performed By: #### TAVO RAMÍREZ CHM7 ####[facility] (DEFAULT)[address] [place] [address] Osmolality [Osmolality] 294 mosm/kg Normal 278-305 [facility] Comment on above: Performed By: #### TAVO RAMÍREZ, CHM7 ####[facility] (DEFAULT)[address] [place] [address] Potassium [Moles/Vol] 3.8 mmol/L Normal 3.5-5.0 [facility] Comment on above: Performed By: #### TAVO RAMÍREZ, CHM7 ####[facility] (DEFAULT)[address] [place] [address] Sodium [Moles/Vol] 141 mmol/L Normal 135-145 [facility] Comment on above: Performed By: #### TAVO RAMÍREZ, CHM7 ####[facility] (DEFAULT)[address] [place] [address] Urea nitrogen [Mass/Vol] 15 mg/dL Normal 7-25 [facility] Comment on above: Performed By: #### TAVO RAMÍREZ, CHM7 ####[facility] (DEFAULT)[address] [place] [address] Urea nitrogen/Creatinine [Mass ratio] 13 mg/mg Normal [facility] Comment on above: Performed By: #### M TAVO BLOOM, CHM7 ####[facility] (DEFAULT)[address] [place] [address] Cardiac catheterization stud yon 01-20-[address] [facility] Radiology Study observation (narrative) [facility] Radiology Study observation (narrative) [facility] EBV BY PCR, QUANTITATIVE,BLO ODOrdered By: Charlotte Jensen on 01-20-2024 EBV DNA ESTELITA+probe (Unsp spec) [#/Vol] NINF [facility] Interpretation and review of laboratory results Normal [facility] This test was perfor med using a real time PCR assay. The dynamic range for this assay is 1000-5,000,000 IU/mL. A result <1000 IU/mL does not rule out the presence of EBV DNA in quantities below the sensitivity of this assay. This test was developed and its performance characteristics determined by The [facility] at [facility]. It has not been cleared or approved by the FDA. The laboratory is regulated under CLIA as qualified to perform high-complexity testing. This test is used for clinical purposes. It should not be regarded as investigational or for research. [facility] HEPATIC FUNCTION PANELon Albumin [Mass/Vol] 3.7 g/dL 3.5 - 5.0 g/dL [facility] ALP [Catalytic activity/Vol] 73 U/L 32 - 126 U/L [facility] ALT [Catalytic activity/Vol] 12 U/L 10 - 52 U/L [facility] AST [Catalytic activity/Vol] 19 U/L 10 - 39 U/L [facility] Bilirubin [Mass/Vol] 2.1 mg/dL High NINF - 1.5 mg/dL [facility] Bilirubin.direct [Mass/Vol] 0.5 mg/dL High NINF - 0.3 mg/dL [facility] Interpretation and review of laboratory results Abnormal [facility] Protein [Mass/Vol] 6.1 g/dL Low 6.4 - 8.3 g/dL [facility] Albumin [Mass/Vol] 3.7 g/dL Normal 3.5-5.0 [facility] Comment on above: Performed By: #### TAVO RAMÍREZ, CHM7 ####[facility] (DEFAULT)[address] [place] [address] ALP [Catalytic activity/Vol] 73 U/L Normal 32-126 [facility] Comment on above: Performed By: #### TAVO RAMÍREZ, CHM7 ####[facility] (DEFAULT)[address] [place] [address] ALT [Catalytic activity/Vol] 12 U/L Normal 10-52 [facility] Comment on above: Performed By: #### TAVO RAMÍREZ, CHM7 ####[facility] (DEFAULT)[address] [place] [address] AST [Catalytic activity/Vol] 19 U/L Normal 10-39 [facility] Comment on above: Performed By: #### TAVO RAMÍREZ, CHM7 ####[facility] (DEFAULT)[address] [place] [address] Bilirubin [Mass/Vol] 2.1 mg/dL High <1.5 [facility] Comment on above: Performed By: #### TAVO RAMÍREZ, CHM7 ####[facility] (DEFAULT)[address] [place] [address] Bilirubin.indirect [Mass/Vol] 0.5 mg/dL High <0.3 [facility] Comment on above: Performed By: #### TAVO RAMÍREZ, CHM7 ####[facility] (DEFAULT)[address] [place] [address] Protein [Mass/Vol] 6.1 g/dL Low 6.4-8.3 [facility] Comment on above: Performed By: #### Rod BLOOM, [facility], CHM7 ####[facility] (DEFAULT)[address] [address] ITRACONAZOLE LEVELon 024 Hydroxyitraconazole 7.6 mcg/mL Normal [facility] Comment on above: Order Comment: Pleas e draw level at specified interval PRIOR to dose. Result Comment: ---- REFERENCE VALUE No therapeutic range established; activity and serumconcentration are similar to parent drug. ADDITIONAL INFORMATION This test was developed and its performance characteristicsdetermined by [facility] in a manner consistent with CLIArequirements. This test has not been cleared or approved bythe U.S. Food and Drug Administration.Test Performed by:[address] Director: Rosendo Bose M.D. Ph.D.; CLIA# [id number] Performed By: #### Y ITCON ####[facility] (DEFAULT)[address] [address] Itraconazole 6.0 mcg/mL Normal [facility] Comment on above: Order Comment: Pleas e draw level at specified interval PRIOR to dose. Result Comment: ---- REFERENCE VALUE-------------------------->0.5 (localized infection), >1.0 (systemic infection) Performed By: #### Y ITCON ####[facility] (DEFAULT)[address] [address] MAGNESIUMon 01-20-2024 Interpretation and review of laboratory results Normal [facility] Magnesium [Mass/Vol] 1.6 mg/dL 1.6 - 2 .6 mg/dL [facility] Magnesium [Mass/Vol] 1.6 mg/dL Normal 1.6-2.6 [facility] Comment on above: Performed By: #### M GO, HFP, CHM7 ####[facility] (DEFAULT)[address] [place] [address] No Panel Informationon 01-[address] [facility] POCT CO-OXIMETRYon Hemoglobin (Bld) [Mass/Vol] 12.8 g/dL Low 13.4 - 16.8 g/dL [facility] Interpretation and review of laboratory results Abnormal [facility] Oxyhemoglobin 69 % Low 94 - 98 % [facility] Ordering physician notified. Test performed at address of the patient encounter. [facility] Hemoglobin (Bld) [Mass/Vol] 13.3 g/dL Low 13.4 - 16.8 g/dL [facility] Interpretation and review of laboratory results Abnormal [facility] Oxyhemoglobin 69 % Low 94 - 98 % [facility] Ordering physician notified. Test performed at address of the patient encounter. [facility] PT,INR,PTTon 01-20-2024 aPTT Coag (PPP) [Time] 30.[address] [facility] INR Coag (Bld) [Relative time] 1.2 {INR} High 0.9 - 1.[address] [facility] Interpretation and review of laboratory results Abnormal [facility] PT Coag (PPP) [Time] 15.5 s High [facility] aPTT Coag (Bld) [Time] 30.6 s Normal 24.0-34.3 [facility] Comment on above: Performed By: #### P TPTT ####[facility] (DEFAULT)[address] [place] [address] INR Coag (PPP) [Relative time] 1.2 {INR} High 0.9-1.1 [facility] Comment on above: Performed By: #### P TPTT ####[facility] (DEFAULT)[address] [place] [address] PT Coag (PPP) [Time] 15.5 s High 11.9-14.2 [facility] Comment on above: Performed By: #### P TPTT ####[facility] (DEFAULT)[address] [place] [address] TACROLIMUS LEVEL, TROUGH (TX E DRUG LEVEL)Ordered By: Yanira Marcum on 01-20-2024 Interpretation and review of laboratory results Normal [facility] Tacrolimus (Bld) [Mass/Vol] 7.7 ng/mL Bone Marrow Transplant: 4.0-12.0, Therapeutic: 5.0-15.[address] [facility] Method performed is a chemiluminescent microparticle immunoasssay on the [employer] i2000. The range is based on experience at [facility] and users should be aware that target concentrations vary widely depending on concomitant therapy, time post-transplant, and desired degree of immunosuppression. [facility] TACROLIMUS LEVEL, TROUGH (TX E DRUG LEVEL)on 01-20-2024 Tacrolimus, Trough 7.7 ng/mL Normal Bone Susana ow Transplant: 4.0-12.0, Therapeutic: 5.0-15.0 [facility] Comment on above: Order Comment: Pleas e draw at specified interval PRIOR to dose. Do not hold dose to wait for level. Specimens batched twice per day, (M-F) and once per day weekendsMethod performed is a chemiluminescent microparticle immunoasssay on the [employer] i2000.The range is based on experience at [facility] and users should be aware that target concentrations vary widely depending on concomitant therapy, time post-transplant, and desired degree of immunosuppression. Performed By: #### T ACRO ####[facility] (DEFAULT)[address] [place] [address] CBC,PLATELETSon 01-19-2024 Erythrocyte distribution width (RBC) [Ratio] 13.9 % 10.9 - 14.3 % [facility] Hematocrit (Bld) [Volume fraction] 37.5 % Low 39.6 - 48.8 % [facility] Hemoglobin (Bld) [Mass/Vol] 12.1 g/dL Low 13.4 - 16.8 g/dL [facility] Interpretation and review of laboratory results Abnormal [facility] MCH (RBC) [Entitic mass] 28.3 pg 26.1 - 33.[address] [facility] MCHC (RBC) [Mass/Vol] 32.3 g/dL 31.9 - 36.5 g/dL [facility] MCV (RBC) [Entitic vol] 87.8 fL 79.0 - 94.[address] [facility] Platelet mean volume (Bld) [Entitic vol] 10.4 fL 8.7 - 12.[address] [facility] Platelets (Bld) [#/Vol] 163 10*3/uL 146 - 337 K/uL [facility] RBC (Bld) [#/Vol] 4.27 10*6/uL Low [facility] WBC (Bld) [#/Vol] 3.69 10*3/uL Low 3.73 - 10. 10 K/uL [facility] Hematocrit (Bld) [Volume fraction] 37.5 % Low 39.6-48.8 [facility] Comment on above: Performed By: #### [facility] ####[facility] (DEFAULT)[address] [place] [address] Hemoglobin (Bld) [Mass/Vol] 12.1 g/dL Low 13.4-16.8 [facility] Comment on above: Performed By: #### [facility] ####[facility] (DEFAULT)[address] [place] [address] MCV (RBC) [Entitic vol] 87.8 fL Normal 79.0-94.5 [facility] Comment on above: Performed By: #### H EMOGC ####[facility] (DEFAULT)[address] [place] [address] Mean Cell Hgb 28.3 pg Normal 26.1-33.3 [facility] Comment on above: Performed By: #### H EMOGC ####[facility] (DEFAULT)[address] [place] [address] Mean Cell Hgb Conc 32.3 g/dL Normal 31.9-36.5 [facility] Comment on above: Performed By: #### H EMOGC ####[facility] (DEFAULT)[address] [place] [address] Platelet mean volume (Bld) [Entitic vol] 10.4 fL Normal 8.7-12.3 [facility] Comment on above: Performed By: #### H EMOGC ####[facility] (DEFAULT)[address] [place] [address] Platelets (Bld) [#/Vol] 163 10*3/uL Normal 146-337 [facility] Comment on above: Performed By: #### H EMOGC ####[facility] (DEFAULT)[address] [place] [address] RBC (Bld) [#/Vol] 4.27 10*6/uL Low 4.38-5.83 [facility] Comment on above: Performed By: #### H EMOGC ####[facility] (DEFAULT)[address] [place] [address] RBC Distribution 13.9 % Normal 10.9-14.3 [facility] Comment on above: Performed By: #### H EMOGC ####[facility] (DEFAULT)[address] [place] [address] WBC (Bld) [#/Vol] 3.69 10*3/uL Low 3.73-10.10 [facility] Comment on above: Performed By: #### H EMOGC ####[facility] (DEFAULT)[address] [place] [address] CHEM 7 (LYTES,BUN,CREA,GLUC) on 01-19-2024 Anion gap [Moles/Vol] 14 mmol/L 7 - 17 mmol/L [facility] Chloride [Moles/Vol] 106 mmol/L 98 - 10 8 [facility]L [facility] CO2 [Moles/Vol] 24 mmol/L 21 - 31 mmol/L [facility] Creatinine [Mass/Vol] 1.13 mg/dL 0.70 - 1.30 mg/dL [facility] eGFR, CKD-EPI, Male 78 - PINF [facility] Comment on above: Reported eGFR is bas ed on the CKD-EPI 2020 equation using creatinine, age, and sex. Glucose [Mass/Vol] 86 mg/dL 70 - 99 mg/dL [facility] Osmolality Calc [Osmolality] [address] [facility] Potassium [Moles/Vol] 3.8 mmol/L 3.5 - 5.0 mmol/L [facility] Sodium [Moles/Vol] 140 mmol/L 135 - 145 mmol/L [facility] Urea nitrogen [Mass/Vol] 16 mg/dL 7 - 25 mg/dL [facility] Urea nitrogen/Creatinine [Mass ratio] 14 mg/mg [facility] Anion gap [Moles/Vol] 14 mmol/L Normal 7-17 [facility] Comment on above: Performed By: #### NATHANIEL RAMÍREZ ####[facility] (DEFAULT)[address] [place] [address] Chloride [Moles/Vol] 106 mmol/L Normal 98-108 [facility] Comment on above: Performed By: #### NATHANIEL RAMÍREZ ####[facility] (DEFAULT)[address] [place] [address] CO2 [Moles/Vol] 24 mmol/L Normal 21-31 [facility] Comment on above: Performed By: #### NATHANIEL RAMÍREZ ####[facility] (DEFAULT)[address] [place] [address] Creatinine [Mass/Vol] 1.13 mg/dL Normal 0.70-1.30 [facility] Comment on above: Performed By: #### Rod BLOOM CHM7 ####[facility] (DEFAULT)[address] [place] [address] GFR/1.73 sq M.predicted among non-blacks MDRD (S/P/Bld) [Vol rate/Area] 78 mL/min/{1.73_m2} Normal >=60 [facility] Comment on above: Result Comment: Repo rted eGFR is based on the CKD-EPI 2020 equation using creatinine, age, and sex. Performed By: #### Rod BLOOM CHM7 ####[facility] (DEFAULT)[address] [place] [address] Glucose [Mass/Vol] 86 mg/dL Normal 70-99 [facility] Comment on above: Performed By: #### Rod BLOOM CHM7 ####[facility] (DEFAULT)[address] [place] [address] Osmolality [Osmolality] 293 mosm/kg Normal 278-305 [facility] Comment on above: Performed By: #### Rod BLOOM CHM7 ####[facility] (DEFAULT)[address] [place] [address] Potassium [Moles/Vol] 3.8 mmol/L Normal 3.5-5.0 [facility] Comment on above: Performed By: #### Rod BLOOM CHM7 ####[facility] (DEFAULT)[address] [place] [address] Sodium [Moles/Vol] 140 mmol/L Normal 135-145 [facility] Comment on above: Performed By: #### Rod BLOOM CHM7 ####[facility] (DEFAULT)[address] [place] [address] Urea nitrogen [Mass/Vol] 16 mg/dL Normal 7-25 [facility] Comment on above: Performed By: #### Rod BLOOM CHM7 ####[facility] (DEFAULT)[address] [place] [address], [place] [address] Urea nitrogen/Creatinine [Mass ratio] 14 mg/mg Normal [facility] Comment on above: Performed By: #### Rod BLOOM CHM7 ####[facility] (DEFAULT)[address] [place] [address] EBV BY PCR, QUANTITATIVE,BLO ODon 01-19-2024 Ebv By Pcr, Quant, Blood <1000 Normal <1000 [facility] Comment on above: Order Comment: [...] [facility] at [facility]. It has not been cleared or approved by the FDA. The laboratory is regulated under CLIA as qualified to perform high-complexity testing. This test is used for clinical purposes. It should not be regarded as investigational or for research. Performed By: #### E BVPCR ####[facility] (DEFAULT)[address] [place] [address] HISTOPLASMA AND BLASTOMYCES ANTIGEN, ENZYME IMMUNOASSAY, SERMon 01-19-2024 Histoplasma/Blastomy antonia Ag Result Not detected Not Detected [facility] Comment on above: No antigen from Hist oplasma or Blastomyces detected. False negative results may occur depending on extent of disease, and/or site of infection. Repeat testing on a new specimen if clinically indicated. Histoplasma/Blastomy antonia Ag Value Not detected ng/mL [facility] Comment on above: ADDITIONAL INFORMATION This test was developed and its performance characteristics determined by [facility] in a manner consistent with CLIA requirements. This test has not been cleared or approved by the U.S. Food and Drug Administration. Test Performed by: [facility] [place][Note 2] [address] [facility] [address], [place] [address] Systems Management Consultant: Rosendo Bose M.D. Ph.D.; CLIA# [id number] [facility] MAGNESIUMon 01-19-2024 Interpretation and review of laboratory results Normal [facility] Magnesium [Mass/Vol] 1.8 mg/dL 1.6 - 2 .6 mg/dL [facility] Magnesium [Mass/Vol] 1.8 mg/dL Normal 1.6-2.6 [facility] Comment on above: Performed By: #### M [facility] ####[facility] (DEFAULT)[address] [place] [address] No Panel Informationon 01-[address] [facility] TACROLIMUS LEVEL, TROUGH (TX E DRUG LEVEL)Ordered By: Raymundo Mehta on 01-19-2024 Interpretation and review of laboratory results Normal [facility] Tacrolimus (Bld) [Mass/Vol] 6.8 ng/mL Bone Marrow Transplant: 4.0-12.0, Therapeutic: 5.0-15.[address] [facility] Method performed is a chemiluminescent microparticle immunoasssay on the [employer] i2000. The range is based on experience at [facility] and users should be aware that target concentrations vary widely depending on concomitant therapy, time post-transplant, and desired degree of immunosuppression. [facility] TACROLIMUS LEVEL, TROUGH (TX E DRUG LEVEL)on 01-19-2024 Tacrolimus, Trough 6.8 ng/mL Normal Bone Susana ow Transplant: 4.0-12.0, Therapeutic: 5.0-15.0 [facility] Comment on above: Order Comment: Pleas e draw at specified interval PRIOR to dose. Do not hold dose to wait for level. Specimens batched twice per day, (M-F) and once per day weekendsMethod performed is a chemiluminescent microparticle immunoasssay on the [employer] i2000.The range is based on experience at [facility] and users should be aware that target concentrations vary widely depending on concomitant therapy, time post-transplant, and desired degree of immunosuppression. Performed By: #### T ACRO ####[facility] (DEFAULT)[address] [place] [address] US AV fistulaOrdered By: Diana Reyes on 01-19-[address] [facility] Work Phone: US AV fistulaon 01-19-2024 Radiology Study observation (narrative) [facility] AFP TUMOR MARKEROrdered By: Francisca Alaniz on 01-18-2024 AFP.tumor marker [Mass/Vol] ng/mL NINF - 8.1 ng/mL [facility] Comment on above: This test was perfor med on the [employer] Immunoassay platform by [employer] which is a two-site sandwich chemiluminescent immunoassay. It is important to note that assays using different manufacturers and/or methods may not be comparable. Interpretation and review of laboratory results Normal [facility] CBC,PLATELETSon 01-18-2024 Erythrocyte distribution width (RBC) [Ratio] 13.9 % 10.9 - 14.3 % [facility] Hematocrit (Bld) [Volume fraction] 38.4 % Low 39.6 - 48.8 % [facility] Hemoglobin (Bld) [Mass/Vol] 12.1 g/dL Low 13.4 - 16.8 g/dL [facility] Interpretation and review of laboratory results Abnormal [facility] MCH (RBC) [Entitic mass] 27.8 pg 26.1 - 33.[address] [facility] MCHC (RBC) [Mass/Vol] 31.5 g/dL Low 31.9 - 36.5 g/dL [facility] MCV (RBC) [Entitic vol] 88.3 fL 79.0 - 94.[address] [facility] Platelet mean volume (Bld) [Entitic vol] 10.4 fL 8.7 - 12.[address] [facility] Platelets (Bld) [#/Vol] 183 10*3/uL 146 - 337 K/uL [facility] RBC (Bld) [#/Vol] 4.35 10*6/uL Low [facility] WBC (Bld) [#/Vol] 3.66 10*3/uL Low 3.73 - 10. 10 K/uL [facility] Hematocrit (Bld) [Volume fraction] 38.4 % Low 39.6-48.8 [facility] Comment on above: Performed By: #### H EMOGC ####[facility] (DEFAULT)[address] [place] [address] Hemoglobin (Bld) [Mass/Vol] 12.1 g/dL Low 13.4-16.8 [facility] Comment on above: Performed By: #### H EMOGC ####[facility] (DEFAULT)[address] [place] [address] MCV (RBC) [Entitic vol] 88.3 fL Normal 79.0-94.5 [facility] Comment on above: Performed By: #### H EMOGC ####[facility] (DEFAULT)[address] [place] [address] Mean Cell Hgb 27.8 pg Normal 26.1-33.3 [facility] Comment on above: Performed By: #### H EMOGC ####[facility] (DEFAULT)[address] [place] [address] Mean Cell Hgb Conc 31.5 g/dL Low 31.9-36.5 [facility] Comment on above: Performed By: #### H EMOGC ####[facility] (DEFAULT)[address] [place] [address] Platelet mean volume (Bld) [Entitic vol] 10.4 fL Normal 8.7-12.3 [facility] Comment on above: Performed By: #### H EMOGC ####[facility] (DEFAULT)[address] [place] [address] Platelets (Bld) [#/Vol] 183 10*3/uL Normal 146-337 [facility] Comment on above: Performed By: #### [facility] ####[facility] (DEFAULT)[address] [place] [address] RBC (Bld) [#/Vol] 4.35 10*6/uL Low 4.38-5.83 [facility] Comment on above: Performed By: #### [facility] ####[facility] (DEFAULT)[address] [place] [address] RBC Distribution 13.9 % Normal 10.9-14.3 [facility] Comment on above: Performed By: #### [facility] [place] ####[facility] (DEFAULT)[address] [place] [address] WBC (Bld) [#/Vol] 3.66 10*3/uL Low 3.73-10.10 [facility] Comment on above: Performed By: #### [facility] [place] ####[facility] (DEFAULT)[address] [place] [address] CHEM 7 (LYTES,BUN,CREA,GLUC) on 01-18-2024 Anion gap [Moles/Vol] 11 mmol/L 7 - 17 mmol/L [facility] Chloride [Moles/Vol] 108 mmol/L 98 - 10 8 mmol/L [facility] CO2 [Moles/Vol] 26 mmol/L 21 - 31 mmol/L [facility] Creatinine [Mass/Vol] 1.00 mg/dL 0.70 - 1.30 mg/dL [facility] eGFR, CKD-EPI, Male - PINF [facility] Comment on above: Reported eGFR is bas ed on the CKD-EPI 2020 equation using creatinine, age, and sex. Glucose [Mass/Vol] 89 mg/dL 70 - 99 mg/dL [facility] Osmolality Calc [Osmolality] [address] [facility] Potassium [Moles/Vol] 3.9 mmol/L 3.5 - 5.0 mmol/L [facility] Sodium [Moles/Vol] 141 mmol/L 135 - 145 mmol/L [facility] Urea nitrogen [Mass/Vol] 16 mg/dL 7 - 25 mg/dL [facility] Urea nitrogen/Creatinine [Mass ratio] 16 mg/mg [facility] Anion gap [Moles/Vol] 11 mmol/L Normal 7-17 [facility] Comment on above: Performed By: #### M GO, CHM7, HFP, TSHQR ####[facility] (DEFAULT)[address] [place] [address] Chloride [Moles/Vol] 108 mmol/L Normal 98-108 [facility] Comment on above: Performed By: #### M GO, CHM7, HFP, TSHQR ####[facility] (DEFAULT)[address] [place] [address] CO2 [Moles/Vol] 26 mmol/L Normal 21-31 [facility] Comment on above: Performed By: #### M GO, CHM7, HFP, TSHQR ####[facility] (DEFAULT)[address] [place] [address] Creatinine [Mass/Vol] 1.00 mg/dL Normal 0.70-1.30 [facility] Comment on above: Performed By: #### M GO, CHM7, HFP, TSHQR ####[facility] (DEFAULT)[address] [place] [address] eGFR, CKD-EPI, Male > Normal >=60 [facility] Comment on above: Result Comment: Repo rted eGFR is based on the CKD-EPI 2020 equation using creatinine, age, and sex. Performed By: #### M GO, CHM7, HFP, TSHQR ####[facility] (DEFAULT)[address] [place] [address] Glucose [Mass/Vol] 89 mg/dL Normal 70-99 [facility] Comment on above: Performed By: #### M GO, CHM7, HFP, TSHQR ####[facility] (DEFAULT)[address] [place] [address] Osmolality [Osmolality] 295 mosm/kg Normal 278-305 [facility] Comment on above: Performed By: #### M GO, CHM7, HFP, TSHQR ####[facility] (DEFAULT)[address] [place] [address] Potassium [Moles/Vol] 3.9 mmol/L Normal 3.5-5.0 [facility] Comment on above: Performed By: #### M GO, CHM7, HFP, TSHQR ####[facility] (DEFAULT)[address] [place] [address] Sodium [Moles/Vol] 141 mmol/L Normal 135-145 [facility] Comment on above: Performed By: #### M GO, CHM7, HFP, TSHQR ####[facility] (DEFAULT)[address] [place] [address] Urea nitrogen [Mass/Vol] 16 mg/dL Normal 7-25 [facility] Comment on above: Performed By: #### M GO, CHM7, HFP, TSHQR ####[facility] (DEFAULT)[address] [place] [address] Urea nitrogen/Creatinine [Mass ratio] 16 mg/mg Normal [facility] Comment on above: Performed By: #### M GO, CHM7, HFP, TSHQR ####[facility] (DEFAULT)[address] [place] [address] Cardiac echo study Procedure Ordered By: Gian Carlos on 01-18-2024 Ao ASC index 1.63 cm/m2 [facility] Work Phone: Ao peak meliton 1.46 m/s [facility] Work Phone: Ao SOV index 1.56 cm/m2 [facility] Work Phone: Ao STJ index 1.25 [facility]: [facility]o VTI 35.74 [facility] Work Phone: [phone] Ascending [facility] 3.39 [facility]: AV LVOT peak gradient 4 mmHg [facility] Work Phone: [phone] [facility] gradient [facility]: [phone] AV peak gradient 9 mmHG [facility] Work Phone: [phone] AV valve area 3.[address] [facility] Work Phone: AV Velocity Ratio 0.[address] [facility] Work Phone: [phone] VEGA (continuity Vmax) 3.[address] [facility] Work Phone: [phone] VEGA (continuity VTI) 3.[address] [facility] Work Phone: VEGA index (continuity Vmax) 1.45 m/s [facility] Work Phone: VEGA index (continuity VTI) 1.49 cm2/m2 [facility] Work Phone: [phone] Avg e' pk meliton 0.07 m/s [facility] Work Phone: [phone] Avg E/e' ratio 19.[address] [facility] Work Phone: Body surface area Derived from formula 2.[address] [facility] Work Phone: BP EF 62 % [facility] Work Phone: DI (Vmax) 0.[address] [facility] Work Phone: DI (VTI) 0.74 m/2 [facility] Work Phone: E wave decelartion time 180.38 msec [facility] Work Phone: e' lateral pk meliton 0.0789 m/s [facility] Work Phone: e' lateral pk meliton 0.08 m/s [facility] Work Phone: e' septal pk meliton 0.0653 m/s [facility] Work Phone: e' septal pk meliton 0.07 m/s [facility] Work Phone: E/A ratio 2.67 [facility] Work Phone: E/e' lateral ratio 17.62 [facility] Work Phone: E/e' septal ratio 21.29 [facility] Work Phone: EF SP 2CH 66 [facility] Work Phone: EF SP 4CH 58 [facility] Work Phone: FS 28 % 28 - 44 % [facility] Work Phone: IVC ostium 2.30 cm [facility] Work Phone: IVS 1.11 cm [facility] Work Phone: LA AREA 2CH 24.36 cm2 [facility] Work Phone: LA area 4CH 20.36 cm2 [facility] Work Phone: LA ESV BP (MOD) 64 mL [facility] Work Phone: LA ESV BP (MOD) index 31 mL/m2 [facility] Work Phone: LA ESV SP 2CH (MOD) 76 mL [facility] Work Phone: [phone] LA ESV SP 4CH (MOD) 53 mL [facility] Work Phone: [phone] LV EDV BP 180 [facility] Work Phone: [phone] LV EDV SP 2CH 190 mL [facility] Work Phone: [phone] LV EDV SP 4CH 166 [facility] Work Phone: [phone] LV ESV BP 69 [facility] Work Phone: [phone] LV ESV SP 2CH 65 mL [facility] Work Phone: LV ESV SP 4CH 70 [facility] Work Phone: LV mass 254.73 g [facility] Work Phone: [phone] LV Mass Index 122.5 g/m2 [facility] Work Phone: LV RWT 0.[address] [facility] Work Phone: LV stroke volume BP (ml) 111 [facility] Work Phone: LV stroke volume index BP 53.37 mL/m2 [facility] Work Phone: LVIDD 5.53 cm [facility] Work Phone: LVIDS 3.97 cm [facility] Work Phone: LVOT area 4.15 cm2 [facility] Work Phone: LVOT diameter 2.30 cm [facility] Work Phone: [phone] LVOT peak meliton 1.06 m/s [facility] Work Phone: LVOT peak VTI 26.61 cm [facility] Work Phone: LVOT stroke volume 111 cm3 [facility] Work Phone: LVOT stroke volume index 53.13 ml/m2 [facility] Work Phone: Mr max meliton 4.21 m/s [facility] Work Phone: MR VTI 134.50 cm [facility] Work Phone: MV mean gradient 3 mmHg [facility] Work Phone: MV peak gradient 11 mmHg [facility] Work Phone: MV pk A meliton 0.52 m/s [facility] Work Phone: MV pk E meliton 1.39 m/s [facility] Work Phone: MV stenosis pressure 1/2 time 58.[address] [facility] Work Phone: MV valve area by continuity eq 2.[address] [facility] Work Phone: MV valve area p 1/2 method 3.[address] [facility] Work Phone: MV VTI 37.[address] [facility] Work Phone: MVA (continuity VTI) 2.[address] [facility] Work Phone: [facility] AV VTI RATIO PRE STRESS 0.[address] [facility] Work Phone: [facility] ECHO LV BIPLANE SYSTOLIC VOLUME INDEX 33.17 mL/m2 [facility] Work Phone: [facility] ECHO LV BP DIASTOLIC VOLUME INDEX 86.54 mL/m2 [facility] Work Phone: [facility] ECHO MR PEAK GRADIENT 70.[address] [facility] Work Phone: PW 1.[address] [facility] Work Phone: RA area 4CH (MOD) 14.50 cm2 [facility] Work Phone: RA vol index 4CH (MOD) 18.27 mL/m2 [facility] Work Phone: Right atrium volume 4 chamber method of disks 38 mL [facility] Work Phone: RV Area diastolic 33.[address] [facility] Work Phone: RV Area systolic 21.30 cm2 [facility] Work Phone: RV basal diam 4.[address] [facility] Work Phone: RV Fractional area change 35.8 % [facility] Work Phone: RV long diam 8.[address] [facility] Work Phone: RV mid diam 3.[address] [facility] Work Phone: RV S' 22.01 cm/s [facility] Work Phone: RVOT peak gradient 4 mmHg [facility] Work Phone: RVOT peak meliton 0.96 m/s [facility] Work Phone: RVOT peak VTI 20.[address] [facility] Work Phone: Sinus 3.[address] [facility] Work Phone: STJ [address] [facility] Work Phone: Stroke Volume 111 cm/mL [facility] Work Phone: Stroke volume index 53 [facility] Work Phone: TAPSE 2.[address] [facility] Work Phone: [facility] Work Phone: Cardiac echo study Procedure [...] echocardiography study was performed. Imaging system used: CoverMyMeds. Indications Indications for study: shortness of breath. [facility] Radiology Study observation (narrative) [facility] HEPATIC FUNCTION PANELon Albumin [Mass/Vol] 3.5 g/dL 3.5 - 5.0 g/dL [facility] ALP [Catalytic activity/Vol] 70 U/L 32 - 126 U/L [facility] ALT [Catalytic activity/Vol] 8 U/L Low 10 - 52 U/L [facility] AST [Catalytic activity/Vol] 20 U/L 10 - 39 U/L [facility] Bilirubin [Mass/Vol] 1.7 mg/dL High NINF - 1.5 mg/dL [facility] Bilirubin.direct [Mass/Vol] 0.4 mg/dL High NINF - 0.3 mg/dL [facility] Protein [Mass/Vol] 6.0 g/dL Low 6.4 - 8.3 g/dL [facility] Albumin [Mass/Vol] 3.5 g/dL Normal 3.5-5.0 [facility] Comment on above: Performed By: #### M GO, CHM7, HFP, TSHQR ####[facility] (DEFAULT)[address] [place] [address] ALP [Catalytic activity/Vol] 70 U/L Normal 32-126 [facility] Comment on above: Performed By: #### M GO, CHM7, HFP, TSHQR ####[facility] (DEFAULT)[address] [place] [address] ALT [Catalytic activity/Vol] 8 U/L Low 10-52 [facility] Comment on above: Performed By: #### M GO, CHM7, HFP, TSHQR ####[facility] (DEFAULT)[address] [place] [address] AST [Catalytic activity/Vol] 20 U/L Normal 10-39 [facility] Comment on above: Performed By: #### M GO, CHM7, HFP, TSHQR ####[facility] (DEFAULT)[address] [place] [address] Bilirubin [Mass/Vol] 1.7 mg/dL High <1.5 [facility] Comment on above: Performed By: #### M GO, CHM7, HFP, TSHQR ####[facility] (DEFAULT)[address] [place] [address] Bilirubin.indirect [Mass/Vol] 0.4 mg/dL High <0.3 [facility] Comment on above: Performed By: #### M NATHANIEL BLOOM, TAVO, TSHQR ####[facility] (DEFAULT)[address] [place] [address] Protein [Mass/Vol] 6.0 g/dL Low 6.4-8.3 [facility] Comment on above: Performed By: #### M NATHANIEL BLOOM, TAVO, TSHQR ####[facility] (DEFAULT)[address] [place] [address] MAGNESIUMon 01-18-2024 Magnesium [Mass/Vol] 1.5 mg/dL Low 1.6 - 2 .6 mg/dL [facility] Magnesium [Mass/Vol] 1.5 mg/dL Low 1.6-2.6 [facility] Comment on above: Performed By: #### M NATHANIEL BLOOM, TAVO, TSHQR ####[facility] (DEFAULT)[address] [place] [address] No Panel Informationon 01-18 Interpretation and review of laboratory results Abnormal [facility] PT,INR,PTTon 01-18-2024 aPTT Coag (PPP) [Time] 30.[address] [facility] INR Coag (Bld) [Relative time] 1.1 {INR} 0.9 - 1.[address] [facility] Interpretation and review of laboratory results Abnormal [facility] PT Coag (PPP) [Time] 14.5 s High [facility] aPTT Coag (Bld) [Time] 30.0 s Normal 24.0-34.3 [facility] Comment on above: Performed By: #### P TPTT ####[facility] (DEFAULT)[address] [place] [address] INR Coag (PPP) [Relative time] 1.1 {INR} Normal 0.9-1.1 [facility] Comment on above: Performed By: #### P TPTT ####[facility] (DEFAULT)[address] [place] [address] PT Coag (PPP) [Time] 14.5 s High 11.9-14.2 [facility] Comment on above: Performed By: #### P TPTT ####[facility] (DEFAULT)[address] [place] [address] TSH W/FT4 REFLEXon 4 Interpretation and review of laboratory results Normal [facility] TSH Qn 2.660 m[IU]/L [facility] TSH 2.660 uIU/mL Normal 0.550-4.780 [facility] Comment on above: Performed By: #### M GO, CHM7, HFP, TSHQR ####[facility] (DEFAULT)[address] [place] [address] AFP TUMOR MARKERon 4 AFP Tumor Marker <2.2 Normal <8.1 [facility] Comment on above: Result Comment: This test was performed on the [employer] Immunoassay platform by [employer] which is a two-site sandwich chemiluminescent immunoassay. It is important to note that assays using different manufacturers and/or methods may not be comparable. Performed By: #### A FPTMR ####[facility] (DEFAULT)[address] [place] [address] DARYL AURIS SCREEN BY PCRO rdered By: Mynor Alejandro on 01-17-2024 Daryl auris Screen by PCR Not detected Not Detected [facility] Interpretation and review of laboratory results Normal [facility] This test was perfor med using a real-time PCR assay. This test was developed, and its performance characteristics determined by [facility]. It has not been cleared or approved by the FDA. The laboratory is regulated under CLIA as qualified to perform high-complexity testing. This test is used for clinical purposes. It should not be regarded as investigational or for research. [facility] CBC,PLATELETSon 01-17-2024 Erythrocyte distribution width (RBC) [Ratio] 14.0 % 10.9 - 14.3 % [facility] Hematocrit (Bld) [Volume fraction] 37.2 % Low 39.6 - 48.8 % [facility] Hemoglobin (Bld) [Mass/Vol] 12.0 g/dL Low 13.4 - 16.8 g/dL [facility] Interpretation and review of laboratory results Abnormal [facility] MCH (RBC) [Entitic mass] 27.9 pg 26.1 - 33.[address] [facility] MCHC (RBC) [Mass/Vol] 32.3 g/dL 31.9 - 36.5 g/dL [facility] MCV (RBC) [Entitic vol] 86.5 fL 79.0 - 94.[address] [facility] Platelet mean volume (Bld) [Entitic vol] 10.5 fL 8.7 - 12.[address] [facility] Platelets (Bld) [#/Vol] 159 10*3/uL 146 - 337 K/uL [facility] RBC (Bld) [#/Vol] 4.30 10*6/uL Low [facility] WBC (Bld) [#/Vol] 3.69 10*3/uL Low 3.73 - 10. 10 K/uL [facility] Hematocrit (Bld) [Volume fraction] 37.2 % Low 39.6-48.8 [facility] Comment on above: Performed By: #### [facility] ####[facility] (DEFAULT)[address] [place] [address] Hemoglobin (Bld) [Mass/Vol] 12.0 g/dL Low 13.4-16.8 [facility] Comment on above: Performed By: #### [facility] ####[facility] (DEFAULT)[address] [place] [address] MCV (RBC) [Entitic vol] 86.5 fL Normal 79.0-94.5 [facility] Comment on above: Performed By: #### H EMOGC ####[facility] (DEFAULT)[address] [place] [address] Mean Cell Hgb 27.9 pg Normal 26.1-33.3 [facility] Comment on above: Performed By: #### H EMOGC ####[facility] (DEFAULT)[address] [place] [address] Mean Cell Hgb Conc 32.3 g/dL Normal 31.9-36.5 [facility] Comment on above: Performed By: #### H EMOGC ####[facility] (DEFAULT)[address] [place] [address] Platelet mean volume (Bld) [Entitic vol] 10.5 fL Normal 8.7-12.3 [facility] Comment on above: Performed By: #### H EMOGC ####[facility] (DEFAULT)[address] [place] [address] Platelets (Bld) [#/Vol] 159 10*3/uL Normal 146-337 [facility] Comment on above: Performed By: #### H EMOGC ####[facility] (DEFAULT)[address] [place] [address] RBC (Bld) [#/Vol] 4.30 10*6/uL Low 4.38-5.83 [facility] Comment on above: Performed By: #### H EMOGC ####[facility] (DEFAULT)[address] [place] [address] RBC Distribution 14.0 % Normal 10.9-14.3 [facility] Comment on above: Performed By: #### H EMOGC ####[facility] (DEFAULT)[address] [place] [place] [address] WBC (Bld) [#/Vol] 3.69 10*3/uL Low 3.73-10.10 [facility] Comment on above: Performed By: #### [facility] ####[facility] (DEFAULT)[address] [place] [address] CHEM 7 (LYTES,BUN,CREA,GLUC) on 01-17-2024 Anion gap [Moles/Vol] 13 mmol/L 7 - 17 mmol/L [facility] Chloride [Moles/Vol] 109 mmol/L High 98 - 10 8 mmol/L [facility] CO2 [Moles/Vol] 21 mmol/L 21 - 31 mmol/L [facility] Creatinine [Mass/Vol] 1.04 mg/dL 0.70 - 1.30 mg/dL [facility] eGFR, CKD-EPI, Male 86 - PINF [facility] Comment on above: Reported eGFR is bas ed on the CKD-EPI 2020 equation using creatinine, age, and sex. Glucose [Mass/Vol] 82 mg/dL 70 - 99 mg/dL [facility] Osmolality Calc [Osmolality] [address] [facility] Potassium [Moles/Vol] 4.4 mmol/L 3.5 - 5.0 mmol/L [facility] Sodium [Moles/Vol] 139 mmol/L 135 - 145 mmol/L [facility] Urea nitrogen [Mass/Vol] 17 mg/dL 7 - 25 mg/dL [facility] Urea nitrogen/Creatinine [Mass ratio] 16 mg/mg [facility] Anion gap [Moles/Vol] 13 mmol/L Normal 7-17 [facility] Comment on above: Performed By: #### C HM7, HFP, MGO ####[facility] (DEFAULT)[address] [place] [address] Chloride [Moles/Vol] 109 mmol/L High 98-108 [facility] Comment on above: Performed By: #### C HM7, HFP, MGO ####[facility] (DEFAULT)[address] [place] [address] CO2 [Moles/Vol] 21 mmol/L Normal 21-31 [facility] Comment on above: Performed By: #### TAVO GONG, MGO ####[facility] (DEFAULT)[address] [place] [address] Creatinine [Mass/Vol] 1.04 mg/dL Normal 0.70-1.30 [facility] Comment on above: Performed By: #### C JASMYNE, TAVO, MGO ####[facility] (DEFAULT)[address] [place] [address] GFR/1.73 sq M.predicted among non-blacks MDRD (S/P/Bld) [Vol rate/Area] 86 mL/min/{1.73_m2} Normal >=60 [facility] Comment on above: Result Comment: Repo rted eGFR is based on the CKD-EPI 2020 equation using creatinine, age, and sex. Performed By: #### C JASMYNE, TAVO, MGO ####[facility] (DEFAULT)[address] [place] [address] Glucose [Mass/Vol] 82 mg/dL Normal 70-99 [facility] Comment on above: Performed By: #### Chinedu MEDLEY, HFP, MGO ####[facility] (DEFAULT)[address] [place] [address] Osmolality [Osmolality] 292 mosm/kg Normal 278-305 [facility] Comment on above: Performed By: #### C HMJessica, HFP, MGO ####[facility] (DEFAULT)[address] [place] [address] Potassium [Moles/Vol] 4.4 mmol/L Normal 3.5-5.0 [facility] Comment on above: Performed By: #### Chinedu HM7, HFP, MGO ####[facility] (DEFAULT)[address] [place] [address] Sodium [Moles/Vol] 139 mmol/L Normal 135-145 [facility] Comment on above: Performed By: #### C HM7, HFP, MGO ####[facility] (DEFAULT)[address] [place] [address] Urea nitrogen [Mass/Vol] 17 mg/dL Normal 7-25 [facility] Comment on above: Performed By: #### C HM7, HFP, MGO ####[facility] (DEFAULT)[address] [place] [address] Urea nitrogen/Creatinine [Mass ratio] 16 mg/mg Normal [facility] Comment on above: Performed By: #### C HM7, HFP, MGO ####[facility] (DEFAULT)[address] [place] [address] CT ABDOMEN/PELVIS WITHOUT CO NTRASTon 01-17-2024 CT ABDOMEN/PELVIS WITHOUT CONTRAST Normal [facility] CT Abdomen and Pelvis WO [...] unremarkable. Kidneys: Severe atrophy of the bilateral [place] kidney is without hydronephrosis. Right lower quadrant [...] unremarkable. Kidneys: Severe atrophy of the bilateral [place] kidney is without hydronephrosis. Right lower quadrant [...] the middle lobe. Trace left pleural effusion. [facility] Radiology Study observation (narrative) [facility] HEPATIC FUNCTION PANELon Albumin [Mass/Vol] 3.5 g/dL 3.5 - 5.0 g/dL [facility] ALP [Catalytic activity/Vol] 73 U/L 32 - 126 U/L [facility] ALT [Catalytic activity/Vol] 7 U/L Low 10 - 52 U/L [facility] AST [Catalytic activity/Vol] 25 U/L 10 - 39 U/L [facility] Bilirubin [Mass/Vol] 1.8 mg/dL High NINF - 1.5 mg/dL [facility] Bilirubin.direct [Mass/Vol] 0.3 mg/dL High NINF - 0.3 mg/dL [facility] Protein [Mass/Vol] 6.0 g/dL Low 6.4 - 8.3 g/dL [facility] Albumin [Mass/Vol] 3.5 g/dL Normal 3.5-5.0 [facility] Comment on above: Performed By: #### C HM7, HFP, MGO ####[facility] (DEFAULT)[address] [place] [address] ALP [Catalytic activity/Vol] 73 U/L Normal 32-126 [facility] Comment on above: Performed By: #### C HM7, HFP, MGO ####[facility] (DEFAULT)[address] [place] [address] ALT [Catalytic activity/Vol] 7 U/L Low 10-52 [facility] Comment on above: Performed By: #### C HM7, HFP, MGO ####[facility] (DEFAULT)[address] [place] [address] AST [Catalytic activity/Vol] 25 U/L Normal 10-39 [facility] Comment on above: Performed By: #### C HM7, HFP, MGO ####[facility] (DEFAULT)[address] [place] [address] Bilirubin [Mass/Vol] 1.8 mg/dL High <1.5 [facility] Comment on above: Performed By: #### C HM7, HFP, MGO ####[facility] (DEFAULT)[address] [place] [address] Bilirubin.indirect [Mass/Vol] 0.3 mg/dL High <0.3 [facility] Comment on above: Performed By: #### C HM7, HFP, MGO ####[facility] (DEFAULT)[address] [place] [address] Protein [Mass/Vol] 6.0 g/dL Low 6.4-8.3 [facility] Comment on above: Performed By: #### C HM7, HFP, MGO ####[facility] (DEFAULT)[address] [place] [address] HISTOPLASMA AND BLASTOMYCES ANTIGEN, ENZYME IMMUNOASSAY, SERMon 01-17-2024 Histoplasma/Blastomy antonia Ag Result Not detected Normal Not Detected [facility] Comment on above: Result Comment: No a ntigen from Histoplasma or Blastomyces detected. Falsenegative results may occur depending on extent of disease,and/or site of infection. Repeat testing on a new specimenif clinically indicated. Performed By: #### H ILYAG ####[facility] (DEFAULT)[address] [place] [address] Histoplasma/Blastomy antonia Ag Value Not detected Normal [facility] Comment on above: Result Comment: ---- ADDITIONAL INFORMATION This test was developed and its performance characteristicsdetermined by [facility] in a manner consistent with CLIArequirements. This test has not been cleared or approved bythe U.S. Food and Drug Administration.Test Performed by:[facility] [place][Note 2][address] [place] [id number] Director: Rosendo Bose M.D. Ph.D.; CLIA# [id number] Performed By: #### Lydia MONCADA ####[facility] (DEFAULT)[address] [place] [address] MAGNESIUMon 01-17-2024 Interpretation and review of laboratory results Normal [facility] Magnesium [Mass/Vol] 1.7 mg/dL 1.6 - 2 .6 mg/dL [facility] Magnesium [Mass/Vol] 1.7 mg/dL Normal 1.6-2.6 [facility] Comment on above: Performed By: #### C HM7, HFP, MGO ####[facility] (DEFAULT)[address] [place] [address] No Panel Informationon 01-17 Interpretation and review of laboratory results Abnormal [facility] PT,INR,PTTon 01-17-2024 aPTT Coag (PPP) [Time] 29.[address] [facility] INR Coag (Bld) [Relative time] 1.1 {INR} 0.9 - 1.[address] [facility] Interpretation and review of laboratory results Abnormal [facility] PT Coag (PPP) [Time] 14.5 s High [facility] aPTT Coag (Bld) [Time] 29.9 s Normal 24.0-34.3 [facility] Comment on above: Performed By: #### P TPTT ####[facility] (DEFAULT)[address] [place] [address] INR Coag (PPP) [Relative time] 1.1 {INR} Normal 0.9-1.1 [facility] Comment on above: Performed By: #### P TPTT ####[facility] (DEFAULT)[address] [place] [address] PT Coag (PPP) [Time] 14.5 s High 11.9-14.2 [facility] Comment on above: Performed By: #### P TPTT ####[facility] (DEFAULT)[address] [place] [address] B-TYPE NATRIURETIC PEPTIDE ( BRAIN)on 01-16-2024 Interpretation and review of laboratory results Abnormal [facility] Natriuretic peptide B (Bld) [Mass/Vol] 212 pg/mL High 0 - 100 pg/mL [facility] Natriuretic peptide B (Bld) [Mass/Vol] 212 pg/mL High 0-100 [facility] Comment on above: Performed By: #### B ERP PM ####[facility] (DEFAULT)[address] [place] [address] CALCIUMon 01-16-2024 Calcium [Mass/Vol] 8.5 mg/dL Low 8.6 - 10. 5 mg/dL [facility] Calcium [Mass/Vol] 8.5 mg/dL Low 8.6-10.5 [facility] Comment on above: Performed By: #### C A, IPB, MGO, CHM7, HFP ####[facility] (DEFAULT)[address] [place] [address] DARYL AURIS SCREEN BY PCRo n 01-16-2024 Daryl auris Screen by PCR Not detected Normal Not Detected [facility] Comment on above: Order Comment: This test was performed using a real-time PCR assay. This test was developed, and its performance characteristics determined by [facility] at [facility]. It has not been cleared or approved by the FDA. The laboratory is regulated under CLIA as qualified to perform high-complexity testing. This test is used for clinical purposes. It should not be regarded as investigational or for research. Performed By: #### C ANDIDA AURIS SCREEN BY PCR ####[facility] (DEFAULT)[address] [place] [address] CBC AND ELECTRONIC DIFFon Basophils (Bld) [#/Vol] K/uL 0.00 - 0.09 K/uL [facility] Basophils/100 WBC (Bld) 0.6 % [facility] Differential cell count method Nom (Bld) Electronic Differential [facility] Eosinophils (Bld) [#/Vol] 0.09 10*3/uL 0.00 - 0.48 K/uL [facility] Eosinophils/100 WBC (Bld) 2.5 % [facility] Erythrocyte distribution width (RBC) [Ratio] 14.0 % 10.9 - 14.3 % [facility] Hematocrit (Bld) [Volume fraction] 37.4 % Low 39.6 - 48.8 % [facility] Hemoglobin (Bld) [Mass/Vol] 12.1 g/dL Low 13.4 - 16.8 g/dL [facility] Immature granulocytes (Bld) [#/Vol] K/uL NINF - 0.07 K/uL [facility] Immature granulocytes/100 WBC (Bld) 0.3 % [facility] Interpretation and review of laboratory results Abnormal [facility] Lymphocytes (Bld) [#/Vol] 1.16 10*3/uL 0.83 - 3.57 K/uL [facility] Lymphocytes/100 WBC (Bld) 32.0 % [facility] MCH (RBC) [Entitic mass] 28.4 pg 26.1 - 33.[address] [facility] MCHC (RBC) [Mass/Vol] 32.4 g/dL 31.9 - 36.5 g/dL [facility] MCV (RBC) [Entitic vol] 87.8 fL 79.0 - 94.[address] [facility] Monocytes (Bld) [#/Vol] 0.43 10*3/uL 0.24 - 0.93 K/uL [facility] Monocytes/100 WBC (Bld) 11.9 % [facility] Neutrophils (Bld) [#/Vol] 1.91 10*3/uL 1.57 - 6.19 K/uL [facility] Nucleated RBC/100 WBC (Bld) [Ratio] 0.0 % [facility] Platelet mean volume (Bld) [Entitic vol] 10.1 fL 8.7 - 12.[address] [facility] Platelets (Bld) [#/Vol] 155 10*3/uL 146 - 337 K/uL [facility] RBC (Bld) [#/Vol] 4.26 10*6/uL Low [facility] Segmented neutrophils/100 WBC (Bld) 52.7 % [facility] WBC (Bld) [#/Vol] 3.62 10*3/uL Low 3.73 - 10. 10 K/uL [facility] Abs Baso Auto < Normal 0.00-0.09 [facility] Comment on above: Performed By: #### L [id number] ####[facility] (DEFAULT)[address] [place] [address] Basophils/100 WBC (Bld) 0.6 % Normal [facility] Comment on above: Performed By: #### L [id number] ####[facility] (DEFAULT)[address] [place] [address] DIFF STATUS Electronic Differential Normal [facility] Comment on above: Performed By: #### L [id number] ####[facility] (DEFAULT)[address] [place] [address] Eosinophils (Bld) [#/Vol] 0.09 10*3/uL Normal 0.00-0.48 [facility] Comment on above: Performed By: #### L [id number] ####[facility] (DEFAULT)[address] [place] [address] Eosinophils/100 WBC (Bld) 2.5 % Normal [facility] Comment on above: Performed By: #### L [id number] ####[facility] (DEFAULT)[address] [place] [address] Hematocrit (Bld) [Volume fraction] 37.4 % Low 39.6-48.8 [facility] Comment on above: Performed By: #### L [id number] ####[facility] (DEFAULT)[address] [place] [address] Hemoglobin (Bld) [Mass/Vol] 12.1 g/dL Low 13.4-16.8 [facility] Comment on above: Performed By: #### L [id number] ####[facility] (DEFAULT)[address] [place] [address] Immature Grans % 0.3 % Normal [facility] Comment on above: Performed By: #### L [id number] ####[facility] (DEFAULT)[address] [place] [address] Immature Grans Absolute < Normal <=0.07 [facility] Comment on above: Performed By: #### L [id number] ####[facility] (DEFAULT)[address] [place] [address] Lymphocytes (Bld) [#/Vol] 1.16 10*3/uL Normal 0.83-3.57 [facility] Comment on above: Performed By: #### L [id number] ####[facility] (DEFAULT)[address] [place] [address] Lymphocytes/100 WBC (Bld) 32.0 % Normal [facility] Comment on above: Performed By: #### L [id number] ####[facility] (DEFAULT)[address] [place] [address] MCV (RBC) [Entitic vol] 87.8 fL Normal 79.0-94.5 [facility] Comment on above: Performed By: #### L [id number] ####[facility] (DEFAULT)[address] [place] [address] Mean Cell Hgb 28.4 pg Normal 26.1-33.3 [facility] Comment on above: Performed By: #### L [id number] ####[facility] (DEFAULT)[address] [place] [address] Mean Cell Hgb Conc 32.4 g/dL Normal 31.9-36.5 [facility] Comment on above: Performed By: #### L [id number] ####[facility] (DEFAULT)[address] [place] [address] Monocytes (Bld) [#/Vol] 0.43 10*3/uL Normal 0.24-0.93 [facility] Comment on above: Performed By: #### L [id number] ####[facility] (DEFAULT)[address] [place] [address] Monocytes/100 WBC (Bld) 11.9 % Normal [facility] Comment on above: Performed By: #### L [id number] ####[facility] (DEFAULT)[address] [place] [address] Nucleated RBC 0.0 /100 WBC Normal <=0.2 [facility] Comment on above: Performed By: #### L [id number] ####[facility] (DEFAULT)[address] [place] [address] Platelet mean volume (Bld) [Entitic vol] 10.1 fL Normal 8.7-12.3 [facility] Comment on above: Performed By: #### L [id number] ####[facility] (DEFAULT)[address] [place] [address] Platelets (Bld) [#/Vol] 155 10*3/uL Normal 146-337 [facility] Comment on above: Performed By: #### L [id number] ####[facility] (DEFAULT)[address] [place] [address] RBC (Bld) [#/Vol] 4.26 10*6/uL Low 4.38-5.83 [facility] Comment on above: Performed By: #### L [id number] ####[facility] (DEFAULT)[address] [place] [address] RBC Distribution 14.0 % Normal 10.9-14.3 [facility] Comment on above: Performed By: #### L [id number] ####[facility] (DEFAULT)[address] [place] [address] Segs + Bands Auto 52.7 % Normal [facility] Comment on above: Performed By: #### L [id number] ####[facility] (DEFAULT)[address] [place] [address] Segs + Bands,Absolute Auto 1.91 K/uL Normal 1.57-6.19 [facility] Comment on above: Performed By: #### L [id number] ####[facility] (DEFAULT)[address] [place] [address] WBC (Bld) [#/Vol] 3.62 10*3/uL Low 3.73-10.10 [facility] Comment on above: Performed By: #### L [id number] ####[facility] (DEFAULT)[address] [place] [address] CHEM 7 (LYTES,BUN,CREA,GLUC) on 01-16-2024 Anion gap [Moles/Vol] 11 mmol/L 7 - 17 mmol/L [facility] Chloride [Moles/Vol] 108 mmol/L 98 - 10 8 mmol/L [facility] CO2 [Moles/Vol] 24 mmol/L 21 - 31 mmol/L [facility] Creatinine [Mass/Vol] 1.04 mg/dL 0.70 - 1.30 mg/dL [facility] eGFR, CKD-EPI, Male 86 - PINF [facility] Comment on above: Reported eGFR is bas ed on the CKD-EPI 2020 equation using creatinine, age, and sex. Glucose [Mass/Vol] 95 mg/dL 70 - 99 mg/dL [facility] Osmolality Calc [Osmolality] [address] [facility] Potassium [Moles/Vol] 4.0 mmol/L 3.5 - 5.0 mmol/L [facility] Sodium [Moles/Vol] 139 mmol/L 135 - 145 mmol/L [facility] Urea nitrogen [Mass/Vol] 19 mg/dL 7 - 25 mg/dL [facility] Urea nitrogen/Creatinine [Mass ratio] 18 mg/mg [facility] Anion gap [Moles/Vol] 11 mmol/L Normal 7-17 [facility] Comment on above: Performed By: #### C A, IPB, MGO, CHM7, HFP ####[facility] (DEFAULT)[address] [place] [address] Chloride [Moles/Vol] 108 mmol/L Normal 98-108 [facility] Comment on above: Performed By: #### C A, IPB, MGO, CHM7, HFP ####[facility] (DEFAULT)[address] [place] [address] CO2 [Moles/Vol] 24 mmol/L Normal 21-31 [facility] Comment on above: Performed By: #### C A, IPB, MGO, CHM7, HFP ####[facility] (DEFAULT)[address] [place] [address] Creatinine [Mass/Vol] 1.04 mg/dL Normal 0.70-1.30 [facility] Comment on above: Performed By: #### C A, IPB, MGO, CHM7, HFP ####[facility] (DEFAULT)[address] [place] [address] GFR/1.73 sq M.predicted among non-blacks MDRD (S/P/Bld) [Vol rate/Area] 86 mL/min/{1.73_m2} Normal >=60 [facility] Comment on above: Result Comment: Repo rted eGFR is based on the CKD-EPI 2020 equation using creatinine, age, and sex. Performed By: #### C A, IPB, MGO, CHM7, HFP ####[facility] (DEFAULT)[address] [place] [address] Glucose [Mass/Vol] 95 mg/dL Normal 70-99 [facility] Comment on above: Performed By: #### C A, IPB, MGO, CHM7, HFP ####[facility] (DEFAULT)[address] [place] [address] Osmolality [Osmolality] 293 mosm/kg Normal 278-305 [facility] Comment on above: Performed By: #### C A, IPB, MGO, CHM7, HFP ####[facility] (DEFAULT)[address] [place] [address] Potassium [Moles/Vol] 4.0 mmol/L Normal 3.5-5.0 [facility] Comment on above: Performed By: #### C Tray, IPB, MGO, CHM7, HFP ####[facility] (DEFAULT)[address] [place] [address] Sodium [Moles/Vol] 139 mmol/L Normal 135-145 [facility] Comment on above: Performed By: #### C A, IPB, MGO, CHM7, HFP ####[facility] (DEFAULT)[address] [place] [address] Urea nitrogen [Mass/Vol] 19 mg/dL Normal 7-25 [facility] Comment on above: Performed By: #### C A, IPB, MGO, CHM7, HFP ####[facility] (DEFAULT)[address] [place] [address] Urea nitrogen/Creatinine [Mass ratio] 18 mg/mg Normal [facility] Comment on above: Performed By: #### C A, IPB, MGO, CHM7, HFP ####[facility] (DEFAULT)[address] [place] [address] D-DIMER,QUANTITATIVEOrdered By: Shaji Kelly on 01-16-2024 Fibrin D-dimer FEU (PPP) [Mass/Vol] 0.67 [facility] Comment on above: The D-Dimer assay is intended for use in conjuction with a clinical pretest probability (PTP) assessment model to exclude pulmonary embolism (PE) and as an aid in the diagnosis of Deep Vein Thrombosis (DVT) in outpatients suspected of PE or DVT. For the assay in use at [facility] ([facility]), a cutoff of <0.50 mcg/mL has a Negative Predictive Value of 99.7% for exclusion of DVT in low and moderate PTP patients. Interpretation and review of laboratory results Abnormal [facility] D-DIMER,QUANTITATIVEon 01-16 D-Dimer, High Sensitivity 0.67 mcg/mL FEU High <0.50 [facility] Comment on above: Result Comment: The D-Dimer assay is intended for use in conjuction with a clinical pretest probability (PTP) assessment model to exclude pulmonary embolism (PE) and as an aid in the diagnosis of Deep Vein Thrombosis (DVT) in outpatients suspected of PE or DVT. For the assay in use at [facility] ([facility]), a cutoff of <0.50 mcg/mL has a Negative Predictive Value of 99.7% for exclusion of DVT in low and moderate PTP patients. Performed By: #### P TPTT, HSDDI ####[facility] (DEFAULT)[address] [place] [address] HEPATIC FUNCTION PANELon Albumin [Mass/Vol] 3.7 g/dL 3.5 - 5.0 g/dL [facility] ALP [Catalytic activity/Vol] 70 U/L 32 - 126 U/L [facility] ALT [Catalytic activity/Vol] 8 U/L Low 10 - 52 U/L [facility] AST [Catalytic activity/Vol] 21 U/L 10 - 39 U/L [facility] Bilirubin [Mass/Vol] 1.9 mg/dL High NINF - 1.5 mg/dL [facility] Bilirubin.direct [Mass/Vol] 0.4 mg/dL High NINF - 0.3 mg/dL [facility] Protein [Mass/Vol] 6.1 g/dL Low 6.4 - 8.3 g/dL [facility] Albumin [Mass/Vol] 3.7 g/dL Normal 3.5-5.0 [facility] Comment on above: Performed By: #### C A, IPB, MGO, CHM7, HFP ####[facility] (DEFAULT)[address] [place] [address] ALP [Catalytic activity/Vol] 70 U/L Normal 32-126 [facility] Comment on above: Performed By: #### C A, IPB, MGO, CHM7, HFP ####[facility] (DEFAULT)[address] [place] [address] ALT [Catalytic activity/Vol] 8 U/L Low 10-52 [facility] Comment on above: Performed By: #### C A, IPB, MGO, CHM7, HFP ####[facility] (DEFAULT)[address] [place] [address] AST [Catalytic activity/Vol] 21 U/L Normal 10-39 [facility] Comment on above: Performed By: #### C A, IPB, MGO, CHM7, HFP ####[facility] (DEFAULT)[address] [place] [address] Bilirubin [Mass/Vol] 1.9 mg/dL High <1.5 [facility] Comment on above: Performed By: #### C A, IPB, MGO, CHM7, HFP ####[facility] (DEFAULT)[address] [place] [address] Bilirubin.indirect [Mass/Vol] 0.4 mg/dL High <0.3 [facility] Comment on above: Performed By: #### C A, IPB, MGO, CHM7, HFP ####[facility] (DEFAULT)[address] [place] [address] Protein [Mass/Vol] 6.1 g/dL Low 6.4-8.3 [facility] Comment on above: Performed By: #### C A, IPB, MGO, CHM7, HFP ####[facility] (DEFAULT)[address] [place] [address] MAGNESIUMon 01-16-2024 Magnesium [Mass/Vol] 1.7 mg/dL 1.6 - 2 .6 mg/dL [facility] Magnesium [Mass/Vol] 1.7 mg/dL Normal 1.6-2.6 [facility] Comment on above: Performed By: #### C A, IPB, MGO, CHM7, HFP ####[facility] (DEFAULT)[address] [place] [address] No Panel Informationon 01-16 Interpretation and review of laboratory results Abnormal [facility] Interpretation and review of laboratory results Normal [facility] PHOSPHATE, INORGANICon 01-16 Phosphate [Mass/Vol] 4.1 mg/dL 2.2 - 4 .6 mg/dL [facility] Phosphorous 4.1 mg/dL Normal 2.2-4.6 [facility] Comment on above: Performed By: #### C A, IPB, MGO, CHM7, HFP ####[facility] (DEFAULT)[address] [place] [address] PT,INR,PTTon 01-16-2024 aPTT Coag (PPP) [Time] 29.[address] [facility] INR Coag (Bld) [Relative time] 1.2 {INR} High 0.9 - 1.[address] [facility] Interpretation and review of laboratory results Abnormal [facility] PT Coag (PPP) [Time] 14.9 s High [facility] aPTT Coag (Bld) [Time] 29.6 s Normal 24.0-34.3 [facility] Comment on above: Performed By: #### P TPTT, HSDDI ####[facility] (DEFAULT)[address] [place] [address] INR Coag (PPP) [Relative time] 1.2 {INR} High 0.9-1.1 [facility] Comment on above: Performed By: #### P TPTTSABASDI ####[facility] (DEFAULT)[address] [place] [address] PT Coag (PPP) [Time] 14.9 s High 11.9-14.2 [facility] Comment on above: Performed By: #### P TPTT, HSDDI ####[facility] (DEFAULT)[address] [place] [address] TACROLIMUS LEVEL, TROUGH (TX E DRUG LEVEL)Ordered By: Jimy Castillo on 01-16-2024 Interpretation and review of laboratory results Normal [facility] Tacrolimus (Bld) [Mass/Vol] 5.7 ng/mL Bone Marrow Transplant: 4.0-12.0, Therapeutic: 5.0-15.[address] [facility] Method performed is a chemiluminescent microparticle immunoasssay on the [employer] i2000. The range is based on experience at [facility] and users should be aware that target concentrations vary widely depending on concomitant therapy, time post-transplant, and desired degree of immunosuppression. [facility] TACROLIMUS LEVEL, TROUGH (TX E DRUG LEVEL)on 01-16-2024 Tacrolimus, Trough 5.7 ng/mL Normal Bone Susana ow Transplant: 4.0-12.0, Therapeutic: 5.0-15.0 [facility] Comment on above: Order Comment: Pleas e draw at specified interval PRIOR to dose. Do not hold dose to wait for level. Specimens batched twice per day, (M-F) and once per day weekendsMethod performed is a chemiluminescent microparticle immunoasssay on the [employer] i2000.The range is based on experience at [facility] and users should be aware that target concentrations vary widely depending on concomitant therapy, time post-transplant, and desired degree of immunosuppression. Performed By: #### T ACRO ####[facility] (DEFAULT)[address] [place] [address] US ABDOMEN LIVER DOPPLERon 0 01-16-2024 US ABDOMEN LIVER DOPPLER Normal [facility] US.doppler Abdominal vessels on 01-16-2024 [...] pleural effusion. Trace right upper quadrant ascites. [facility] Radiology Study observation (narrative) [facility] US.doppler Abdominal vessels Ordered By: Iona Duran on 01-16-[address] [facility] Work Phone: XR CHEST PA AND LATERAL 2 EWSon 01-16-2024 XR CHEST PA AND LATERAL 2 VIEWS Normal [facility] XR Chest PA and Lateralon [...] Normal IMPRESSION IMPRESSION: Moderate right pleural effusion. [facility] Radiology Study observation (narrative) [facility] XR Chest PA and LateralOrder ed By: Daisha Patterson on 01-16-[address] [facility] Work Phone: ALL CBC WITH AUTO DIFFon BASOPHILS ABSOLUTE AUTO 0.[address] [facility] Basophils/100 WBC (Bld) 0.5 % 0.2 - 2.0 % [facility] Eosinophils/100 WBC (Bld) 2.8 % 0.9 - 7.0 % [facility] Erythrocyte distribution width (RBC) [Ratio] 13.8 % 11.0 - 15.0 % [facility] Hematocrit (Bld) [Volume fraction] 43.7 % 42.0 - 54.0 % [facility] Hemoglobin (Bld) [Mass/Vol] 14.0 g/dL 14.0 - 18.0 g/dL [facility] IMMATURE GRANULOCYTES ABS AUTO 0.[address] [facility] Immature granulocytes/100 WBC (Bld) 0.3 % 0.0 - 0.5 % [facility] LYMPHOCYTES ABSOLUTE AUTO 1.[address] [facility] Lymphocytes/100 WBC (Bld) 37.5 % 20.5 - 60.0 % [facility] MCH (RBC) [Entitic mass] 28.4 pg 25.9 - 34.0 [facility] (RBC) [Mass/Vol] 32.0 g/dL 29.9 - 35.2 g/dL [facility] MCV (RBC) [Entitic vol] 88.6 fL 80.0 - 94.0 fL [facility] MONOCYTES ABSOLUTE AUTO 0.[address] [facility] Monocytes/100 WBC (Bld) 11.9 % 1.7 - 12.0 % [facility] NEUTROPHILS ABSOLUTE AUTO 1.[address] [facility] Neutrophils/100 WBC (Bld) 47.0 % 43.0 - 75.0 % [facility] Platelet mean volume (Bld) [Entitic vol] 10.3 fL 9.5 - 13.5 [facility]L [facility] PLT 180 [facility] RBC 4.93 [facility] WBC 4.[address] [facility] ALL CBC WITH AUTO DIFFon BASOPHILS ABSOLUTE AUTO 0.[address] [facility] Basophils/100 WBC (Bld) 0.5 % 0.2 - 2.0 % [facility] Eosinophils/100 WBC (Bld) 2.6 % 0.9 - 7.0 % [facility] Erythrocyte distribution width (RBC) [Ratio] 13.5 % 11.0 - 15.0 % [facility] Hematocrit (Bld) [Volume fraction] 43.8 % 42.0 - 54.0 % [facility] Hemoglobin (Bld) [Mass/Vol] 14.0 g/dL 14.0 - 18.0 g/dL [facility] IMMATURE GRANULOCYTES ABS AUTO 0.[address] [facility] Immature granulocytes/100 WBC (Bld) 0.0 % 0.0 - 0.5 % [facility] Interpretation and review of laboratory results Abnormal [facility] LYMPHOCYTES ABSOLUTE AUTO 1.[address] [facility] Lymphocytes/100 WBC (Bld) 45.2 % 20.5 - 60.0 % [facility] MCH (RBC) [Entitic mass] 27.9 pg 25.9 - 34.[address] [facility] MCHC (RBC) [Mass/Vol] 32.0 g/dL 29.9 - 35.2 g/dL [facility] MCV (RBC) [Entitic vol] 87.4 fL 80.0 - 94.[address] [facility] MONOCYTES ABSOLUTE AUTO 0.[address] [facility] Monocytes/100 WBC (Bld) 9.6 % 1.7 - 12.0 % [facility] NEUTROPHILS ABSOLUTE AUTO 1.[address] [facility] Neutrophils/100 WBC (Bld) 42.1 % Low 43.0 - 75.0 % [facility] Platelet mean volume (Bld) [Entitic vol] 9.8 fL 9.5 - 13.5 fL [facility] EO # 0.1 [facility] PLT 180 [facility] RBC 5.[address] [facility] TB WBC 3.[address] [facility] CHEM 7 (LYTES,BUN,CREA,GLUC) on 09-11-2023 Anion gap [Moles/Vol] 13 mmol/L 7 - 17 mmol/L [facility] Chloride [Moles/Vol] 111 mmol/L High 98 - 10 8 mmol/L [facility] CO2 [Moles/Vol] 20 mmol/L Low 21 - 31 mmol/L [facility] Creatinine [Mass/Vol] 1.13 mg/dL 0.70 - 1.30 mg/dL [facility] eGFR, CKD-EPI, Male 78 - PINF [facility] Glucose [Mass/Vol] 109 mg/dL High 70 - 99 mg/dL [facility] Interpretation and review of laboratory results Abnormal [facility] Osmolality Calc [Osmolality] [address] [facility] Potassium [Moles/Vol] 4.3 mmol/L 3.5 - 5.0 mmol/L [facility] Sodium [Moles/Vol] 140 mmol/L 135 - 145 mmol/L [facility] Urea nitrogen [Mass/Vol] 16 mg/dL 7 - 25 mg/dL [facility] Urea nitrogen/Creatinine [Mass ratio] 14 mg/mg [facility] Anion gap [Moles/Vol] 13 mmol/L Normal 7-17 [facility] Comment on above: Performed By: #### NATHANIEL RAMÍREZ ####[facility] (DEFAULT)[address] [place] [address] Chloride [Moles/Vol] 111 mmol/L High 98-108 [facility] Comment on above: Performed By: #### NATHANIEL RAMÍREZ ####[facility] (DEFAULT)[address] [place] [address] CO2 [Moles/Vol] 20 mmol/L Low 21-31 [facility] Comment on above: Performed By: #### NATHANIEL RAMÍREZ ####[facility] (DEFAULT)[address] [place] [address] Creatinine [Mass/Vol] 1.13 mg/dL Normal 0.70-1.30 [facility] Comment on above: Performed By: #### Rod BLOOM CHM7 ####[facility] (DEFAULT)[address] [place] [address] GFR/1.73 sq M.predicted among non-blacks MDRD (S/P/Bld) [Vol rate/Area] 78 mL/min/{1.73_m2} Normal >=60 [facility] Comment on above: Result Comment: Repo rted eGFR is based on the CKD-EPI 2020 equation using creatinine, age, and sex. Performed By: #### Rod BLOOM CHM7 ####[facility] (DEFAULT)[address] [place] [address] Glucose [Mass/Vol] 109 mg/dL High 70-99 [facility] Comment on above: Performed By: #### Rod BLOOM CHM7 ####[facility] (DEFAULT)[address] [place] [address] Osmolality [Osmolality] 295 mosm/kg Normal 278-305 [facility] Comment on above: Performed By: #### Rod BLOOM CHM7 ####[facility] (DEFAULT)[address] [place] [address] Potassium [Moles/Vol] 4.3 mmol/L Normal 3.5-5.0 [facility] Comment on above: Performed By: #### Rod BLOOM CHM7 ####[facility] (DEFAULT)[address] [place] [address] Sodium [Moles/Vol] 140 mmol/L Normal 135-145 [facility] Comment on above: Performed By: #### Rod BLOOM CHM7 ####[facility] (DEFAULT)[address] [place] [address] Urea nitrogen [Mass/Vol] 16 mg/dL Normal 7-25 [facility] Comment on above: Performed By: #### TJ RAMÍREZ7 ####[facility] (DEFAULT)[address] [place] [address] Urea nitrogen/Creatinine [Mass ratio] 14 mg/mg Normal [facility] Comment on above: Performed By: #### TJ RAMÍREZ7 ####[facility] (DEFAULT)[address] [place] [address] GLUCOSE POCon 09-11-2023 Glucose [Mass/Vol] 108 mg/dL High 70 - 99 mg/dL [facility] Interpretation and review of laboratory results Abnormal [facility] POC Sample Type CAPBL [facility] Legionella sp identified Org specific cx Nom (Unsp spec)on 09-11-2023 Bacteria identified Cx Nom (Unsp spec) NO GROWTH DAY 7 OF 7 [facility] MAGNESIUMon 09-11-2023 Interpretation and review of laboratory results Normal [facility] Magnesium [Mass/Vol] 1.6 mg/dL 1.6 - 2 .6 mg/dL [facility] Magnesium [Mass/Vol] 1.6 mg/dL Normal 1.6-2.6 [facility] Comment on above: Performed By: #### NATHANIEL RAMÍREZ ####[facility] (DEFAULT)[address] [place] [address] No Panel Informationon 09-[address] [facility] TACROLIMUS LEVEL, TROUGH (TX E DRUG LEVEL)on 09-11-2023 Interpretation and review of laboratory results Normal [facility] Tacrolimus (Bld) [Mass/Vol] 11.5 ng/mL [facility] Tacrolimus, Trough 11.5 ng/mL Normal [facility] Susana ow Transplant: 4.0-12.0, Therapeutic: 5.0-15.0 [facility] Comment on above: Order Comment: Dilan gregory draw at specified interval PRIOR to dose. Do not hold dose to wait for level. Specimens batched twice per day, (M-F) and once per day weekendsMethod performed is a chemiluminescent microparticle immunoasssay on the [employer] i2000.The range is based on experience at [facility] and users should be aware that target concentrations vary widely depending on concomitant therapy, time post-transplant, and desired degree of immunosuppression. Performed By: #### T ACRO ####[facility] (DEFAULT)[address] [place] [address] CBC,PLATELETSon 09-10-2023 Erythrocyte distribution width (RBC) [Ratio] 13.9 % 10.9 - 14.3 % [facility] Hematocrit (Bld) [Volume fraction] 40.0 % 39.6 - 48.8 % [facility] Hemoglobin (Bld) [Mass/Vol] 12.7 g/dL Low 13.4 - 16.8 g/dL [facility] Interpretation and review of laboratory results Abnormal [facility] MCH (RBC) [Entitic mass] 27.3 pg 26.1 - 33.[address] [facility] MCHC (RBC) [Mass/Vol] 31.8 g/dL Low 31.9 - 36.5 g/dL [facility] MCV (RBC) [Entitic vol] 86.0 fL 79.0 - 94.[address] [facility] Platelet mean volume (Bld) [Entitic vol] 9.5 fL 8.7 - 12.[address] [facility] Platelets (Bld) [#/Vol] 225 10*3/uL 146 - 337 K/uL [facility] RBC (Bld) [#/Vol] 4.65 10*6/uL [facility] WBC (Bld) [#/Vol] 6.52 10*3/uL 3.73 - 10. 10 K/uL [facility] Hematocrit (Bld) [Volume fraction] 40.0 % Normal 39.6-48.8 [facility] Comment on above: Performed By: #### H EMOGC ####[facility] (DEFAULT)[address] [place] [address] Hemoglobin (Bld) [Mass/Vol] 12.7 g/dL Low 13.4-16.8 [facility] Comment on above: Performed By: #### H EMOGC ####[facility] (DEFAULT)[address] [place] [address] MCV (RBC) [Entitic vol] 86.0 fL Normal 79.0-94.5 [facility] Comment on above: Performed By: #### H EMOGC ####[facility] (DEFAULT)[address] [place] [address] Mean Cell Hgb 27.3 pg Normal 26.1-33.3 [facility] Comment on above: Performed By: #### H EMOGC ####[facility] (DEFAULT)[address] [place] [address] Mean Cell Hgb Conc 31.8 g/dL Low 31.9-36.5 [facility] Comment on above: Performed By: #### H EMOGC ####[facility] (DEFAULT)[address] [place] [address] Platelet mean volume (Bld) [Entitic vol] 9.5 fL Normal 8.7-12.3 [facility] Comment on above: Performed By: #### H EMOGC ####[facility] (DEFAULT)[address] [place] [address] Platelets (Bld) [#/Vol] 225 10*3/uL Normal 146-337 [facility] Comment on above: Performed By: #### H EMOGC ####[facility] (DEFAULT)[address] [place] [address] RBC (Bld) [#/Vol] 4.65 10*6/uL Normal 4.38-5.83 [facility] Comment on above: Performed By: #### H EMOGC ####[facility] (DEFAULT)[address] [place] [address] RBC Distribution 13.9 % Normal 10.9-14.3 [facility] Comment on above: Performed By: #### [facility] ####[facility] (DEFAULT)[address] [place] [address] WBC (Bld) [#/Vol] 6.52 10*3/uL Normal 3.73-10.10 [facility] Comment on above: Performed By: #### [facility] ####[facility] (DEFAULT)[address] [place] [address] CHEM 7 (LYTES,BUN,CREA,GLUC) on 09-10-2023 Anion gap [Moles/Vol] 13 mmol/L 7 - 17 mmol/L [facility] Chloride [Moles/Vol] 111 mmol/L High 98 - 10 8 mmol/L [facility] CO2 [Moles/Vol] 20 mmol/L Low 21 - 31 mmol/L [facility] Creatinine [Mass/Vol] 1.27 mg/dL 0.70 - 1.30 mg/dL [facility] eGFR, CKD-EPI, Male 69 - PINF [facility] Glucose [Mass/Vol] 100 mg/dL High 70 - 99 mg/dL [facility] Osmolality Calc [Osmolality] [address] [facility] Potassium [Moles/Vol] 4.4 mmol/L 3.5 - 5.0 mmol/L [facility] Sodium [Moles/Vol] 140 mmol/L 135 - 145 mmol/L [facility] Urea nitrogen [Mass/Vol] 12 mg/dL 7 - 25 mg/dL [facility] Urea nitrogen/Creatinine [Mass ratio] 9 mg/mg [facility] Anion gap [Moles/Vol] 13 mmol/L Normal 7-17 [facility] Comment on above: Performed By: #### M GO, CHM7, HFP ####[facility] (DEFAULT)[address] [place] [address] Chloride [Moles/Vol] 111 mmol/L High 98-108 [facility] Comment on above: Performed By: #### NATHANIEL RAMÍREZ, HFP ####[facility] (DEFAULT)[address] [place] [address] CO2 [Moles/Vol] 20 mmol/L Low 21-31 [facility] Comment on above: Performed By: #### NATHANIEL RAMÍREZ, HFP ####[facility] (DEFAULT)[address] [facility] [place] [address] Creatinine [Mass/Vol] 1.27 mg/dL Normal 0.70-1.30 [facility] Comment on above: Performed By: #### NATHANIEL RAMÍREZ, HFP ####[facility] (DEFAULT)[address] [place] [address] GFR/1.73 sq M.predicted among non-blacks MDRD (S/P/Bld) [Vol rate/Area] 68 mL/min/{1.73_m2} Normal >=60 [facility] Comment on above: Result Comment: Repo rted eGFR is based on the CKD-EPI 2020 equation using creatinine, age, and sex. Performed By: #### NATHANIEL RAMÍREZ, HFP ####[facility] (DEFAULT)[address] [place] [address] Glucose [Mass/Vol] 100 mg/dL High 70-99 [facility] Comment on above: Performed By: #### NATHANIEL RAMÍREZ, HFP ####[facility] (DEFAULT)[address] [place] [address] Osmolality [Osmolality] 293 mosm/kg Normal 278-305 [facility] Comment on above: Performed By: #### NATHANIEL RAMÍREZ, HFP ####[facility] (DEFAULT)[address] [place] [address] Potassium [Moles/Vol] 4.4 mmol/L Normal 3.5-5.0 [facility] Comment on above: Performed By: #### NATHANIEL RAMÍREZ, HFP ####[facility] (DEFAULT)[address] [place] [address] Sodium [Moles/Vol] 140 mmol/L Normal 135-145 [facility] Comment on above: Performed By: #### NATHANIEL RAMÍREZ, HFP ####[facility] (DEFAULT)[address] [place] [address] Urea nitrogen [Mass/Vol] 12 mg/dL Normal 7-25 [facility] Comment on above: Performed By: #### NATHANIEL RAMÍREZ, HFP ####[facility] (DEFAULT)[address] [place] [address] Urea nitrogen/Creatinine [Mass ratio] 9 mg/mg Normal [facility] Comment on above: Performed By: #### NATHANIEL RAMÍREZ, HFP ####[facility] (DEFAULT)[address] [place] [address] HEPATIC FUNCTION PANELon Albumin [Mass/Vol] 3.3 g/dL Low 3.5 - 5.0 g/dL [facility] ALP [Catalytic activity/Vol] 143 U/L High 32 - 126 U/L [facility] ALT [Catalytic activity/Vol] 28 U/L 10 - 52 U/L [facility] AST [Catalytic activity/Vol] 29 U/L 10 - 39 U/L [facility] Bilirubin [Mass/Vol] 0.9 mg/dL [facility].5 mg/dL [facility] Bilirubin.direct [Mass/Vol] 0.2 mg/dL NINF - 0.3 mg/dL [facility] Protein [Mass/Vol] 6.8 g/dL 6.4 - 8.3 g/dL [facility] Albumin [Mass/Vol] 3.3 g/dL Low 3.5-5.0 [facility] Comment on above: Performed By: #### M HELEN BLOOMM7, HFP ####[facility] (DEFAULT)[address] [place] [address] ALP [Catalytic activity/Vol] 143 U/L High 32-126 [facility] Comment on above: Performed By: #### M HELEN BLOOMM7, HFP ####[facility] (DEFAULT)[address] [place] [address] ALT [Catalytic activity/Vol] 28 U/L Normal 10-52 [facility] Comment on above: Performed By: #### M TJ BLOOM7, HFP ####[facility] (DEFAULT)[address] [place] [address] AST [Catalytic activity/Vol] 29 U/L Normal 10-39 [facility] Comment on above: Performed By: #### TJ RAMÍREZ7, HFP ####[facility] (DEFAULT)[address] [place] [address] Bilirubin [Mass/Vol] 0.9 mg/dL Normal <1.5 [facility] Comment on above: Performed By: #### Rod BLOOM CHM7, HFP ####[facility] (DEFAULT)[address] [place] [address] Bilirubin.indirect [Mass/Vol] 0.2 mg/dL Normal <0.3 [facility] Comment on above: Performed By: #### M HELEN BLOOMM7, HFP ####[facility] (DEFAULT)[address] [place] [address] Protein [Mass/Vol] 6.8 g/dL Normal 6.4-8.3 [facility] Comment on above: Performed By: #### Rod BLOOM CHM7, HFP ####[facility] (DEFAULT)[address] [place] [address] MAGNESIUMon 09-10-2023 Interpretation and review of laboratory results Normal [facility] Magnesium [Mass/Vol] 1.9 mg/dL 1.6 - 2 .6 mg/dL [facility] Magnesium [Mass/Vol] 1.9 mg/dL Normal 1.6-2.6 [facility] Comment on above: Performed By: #### M GO, CHM7, HFP ####[facility] (DEFAULT)[address] [place] [address] No Panel Informationon 09-10 Interpretation and review of laboratory results Abnormal [facility] TACROLIMUS LEVEL, TROUGH (TX E DRUG LEVEL)Ordered By: Jimy Castillo on 09-10-2023 Interpretation and review of laboratory results Normal [facility] Tacrolimus (Bld) [Mass/Vol] 11.8 ng/mL [facility] TACROLIMUS LEVEL, TROUGH (TX E DRUG LEVEL)on 09-10-2023 Tacrolimus, Trough 11.8 ng/mL Normal Bone Susana ow Transplant: 4.0-12.0, Therapeutic: 5.0-15.0 [facility] Comment on above: Order Comment: Pleas e draw at specified interval PRIOR to dose. Do not hold dose to wait for level. Specimens batched twice per day, (M-F) and once per day weekendsMethod performed is a chemiluminescent microparticle immunoasssay on the [employer] i2000.The range is based on experience at [facility] and users should be aware that target concentrations vary widely depending on concomitant therapy, time post-transplant, and desired degree of immunosuppression. Performed By: #### T ACRO ####[facility] (DEFAULT)[address] [place] [address] CHEM 7 (LYTES,BUN,CREA,GLUC) on 09-09-2023 Anion gap [Moles/Vol] 14 mmol/L 7 - 17 mmol/L [facility] Chloride [Moles/Vol] 113 mmol/L High 98 - 10 8 mmol/L [facility] CO2 [Moles/Vol] 18 mmol/L Low 21 - 31 mmol/L [facility] Creatinine [Mass/Vol] 1.03 mg/dL 0.70 - 1.30 mg/dL [facility] eGFR, CKD-EPI, Male 87 - PINF [facility] Glucose [Mass/Vol] 106 mg/dL High 70 - 99 mg/dL [facility] Interpretation and review of laboratory results Abnormal [facility] Osmolality Calc [Osmolality] [address] [facility] Potassium [Moles/Vol] 4.0 mmol/L 3.5 - 5.0 mmol/L [facility] Sodium [Moles/Vol] 141 mmol/L 135 - 145 mmol/L [facility] Urea nitrogen [Mass/Vol] 10 mg/dL 7 - 25 mg/dL [facility] Urea nitrogen/Creatinine [Mass ratio] 10 mg/mg [facility] Anion gap [Moles/Vol] 14 mmol/L Normal 7-17 [facility] Comment on above: Performed By: #### JO ANN RAMÍREZ CHM7 ####[facility] (DEFAULT)[address] [place] [address] Chloride [Moles/Vol] 113 mmol/L High 98-108 [facility] Comment on above: Performed By: #### JO ANN RAMÍREZ CHM7 ####[facility] (DEFAULT)[address] [place] [address] CO2 [Moles/Vol] 18 mmol/L Low 21-31 [facility] Comment on above: Performed By: #### JO ANN RAMÍREZ CHM7 ####[facility] (DEFAULT)[address] [place] [address] Creatinine [Mass/Vol] 1.03 mg/dL Normal 0.70-1.30 [facility] Comment on above: Performed By: #### JO ANN RAMÍREZ, CHM7 ####[facility] (DEFAULT)[address] [place] [address] GFR/1.73 sq M.predicted among non-blacks MDRD (S/P/Bld) [Vol rate/Area] 87 mL/min/{1.73_m2} Normal >=60 [facility] Comment on above: Result Comment: Repo rted eGFR is based on the CKD-EPI 2020 equation using creatinine, age, and sex. Performed By: #### JO ANN RAMÍREZ CHM7 ####[facility] (DEFAULT)[address] [place] [address] Glucose [Mass/Vol] 106 mg/dL High 70-99 [facility] Comment on above: Performed By: #### JO ANN RAMÍREZ CHM7 ####[facility] (DEFAULT)[address] [place] [address] Osmolality [Osmolality] 294 mosm/kg Normal 278-305 [facility] Comment on above: Performed By: #### JO ANN RAMÍREZ CHM7 ####[facility] (DEFAULT)[address] [place] [address] Potassium [Moles/Vol] 4.0 mmol/L Normal 3.5-5.0 [facility] Comment on above: Performed By: #### JO ANN RAMÍREZ CHM7 ####[facility] (DEFAULT)[address] [place] [address] Sodium [Moles/Vol] 141 mmol/L Normal 135-145 [facility] Comment on above: Performed By: #### JO ANN RAMÍREZ, CHM7 ####[facility] (DEFAULT)[address] [place] [address] Urea nitrogen [Mass/Vol] 10 mg/dL Normal 7-25 [facility] Comment on above: Performed By: #### JO ANN RAMÍREZ, CHM7 ####[facility] (DEFAULT)[address] [place] [address] Urea nitrogen/Creatinine [Mass ratio] 10 mg/mg Normal [facility] Comment on above: Performed By: #### JO ANN RAMÍREZ CHM7 ####[facility] (DEFAULT)[address] [place] [address] MAGNESIUMon 09-09-2023 Magnesium [Mass/Vol] 1.6 mg/dL 1.6 - 2 .6 mg/dL [facility] Magnesium [Mass/Vol] 1.6 mg/dL Normal 1.6-2.6 [facility] Comment on above: Performed By: #### M JO ANN BLOOM CHM7 ####[facility] (DEFAULT)[address] [place] [address] No Panel Informationon 09-09 Interpretation and review of laboratory results Normal [facility] PHOSPHATE, INORGANICon 09-09 Phosphate [Mass/Vol] 3.8 mg/dL 2.2 - 4 .6 mg/dL [facility] Phosphorous 3.8 mg/dL Normal 2.2-4.6 [facility] Comment on above: Performed By: #### M JO ANN BLOOM CHM7 ####[facility] (DEFAULT)[address] [place] [address] TACROLIMUS LEVEL, TROUGH (TX E DRUG LEVEL)on 09-09-2023 Interpretation and review of laboratory results Normal [facility] Tacrolimus (Bld) [Mass/Vol] 9.2 ng/mL [facility] Tacrolimus, Trough 9.2 ng/mL Normal Bone Susana ow Transplant: 4.0-12.0, Therapeutic: 5.0-15.0 [facility] Comment on above: Order Comment: Pleas e draw at specified interval PRIOR to dose. Do not hold dose to wait for level. Specimens batched twice per day, (M-F) and once per day weekendsMethod performed is a chemiluminescent microparticle immunoasssay on the [employer] i2000.The range is based on experience at [facility] and users should be aware that target concentrations vary widely depending on concomitant therapy, time post-transplant, and desired degree of immunosuppression. Performed By: #### T ACRO ####[facility] (DEFAULT)[address] [place] [address] CBC,PLATELETSon 09-08-2023 Erythrocyte distribution width (RBC) [Ratio] 13.6 % 10.9 - 14.3 % [facility] Hematocrit (Bld) [Volume fraction] 36.1 % Low 39.6 - 48.8 % [facility] Hemoglobin (Bld) [Mass/Vol] 11.6 g/dL Low 13.4 - 16.8 g/dL [facility] Interpretation and review of laboratory results Abnormal [facility] MCH (RBC) [Entitic mass] 27.4 pg 26.1 - 33.[address] [facility] MCHC (RBC) [Mass/Vol] 32.1 g/dL 31.9 - 36.5 g/dL [facility] MCV (RBC) [Entitic vol] 85.1 fL 79.0 - 94.[address] [facility] Platelet mean volume (Bld) [Entitic vol] 9.5 fL 8.7 - 12.[address] [facility] Platelets (Bld) [#/Vol] 182 10*3/uL 146 - 337 K/uL [facility] RBC (Bld) [#/Vol] 4.24 10*6/uL Low [facility] WBC (Bld) [#/Vol] 4.59 10*3/uL 3.73 - 10. 10 K/uL [facility] Hematocrit (Bld) [Volume fraction] 36.1 % Low 39.6-48.8 [facility] Comment on above: Performed By: #### [facility] ####[facility] (DEFAULT)[address] [place] [address] Hemoglobin (Bld) [Mass/Vol] 11.6 g/dL Low 13.4-16.8 [facility] Comment on above: Performed By: #### H EMO ####[facility] (DEFAULT)[address] [place] [address] MCV (RBC) [Entitic vol] 85.1 fL Normal 79.0-94.5 [facility] Comment on above: Performed By: #### H EMOGC ####[facility] (DEFAULT)[address] [place] [address] Mean Cell Hgb 27.4 pg Normal 26.1-33.3 [facility] Comment on above: Performed By: #### H EMOGC ####[facility] (DEFAULT)[address] [place] [address] Mean Cell Hgb Conc 32.1 g/dL Normal 31.9-36.5 [facility] Comment on above: Performed By: #### H EMOGC ####[facility] (DEFAULT)[address] [place] [address] Platelet mean volume (Bld) [Entitic vol] 9.5 fL Normal 8.7-12.3 [facility] Comment on above: Performed By: #### H EMOGC ####[facility] (DEFAULT)[address] [place] [address] Platelets (Bld) [#/Vol] 182 10*3/uL Normal 146-337 [facility] Comment on above: Performed By: #### H EMOGC ####[facility] (DEFAULT)[address] [place] [address] RBC (Bld) [#/Vol] 4.24 10*6/uL Low 4.38-5.83 [facility] Comment on above: Performed By: #### H EMOGC ####[facility] (DEFAULT)[address] [place] [address] RBC Distribution 13.6 % Normal 10.9-14.3 [facility] Comment on above: Performed By: #### H EMOGC ####[facility] (DEFAULT)[address] [place] [address] WBC (Bld) [#/Vol] 4.59 10*3/uL Normal 3.73-10.10 [facility] Comment on above: Performed By: #### [facility] ####[facility] (DEFAULT)[address] [place] [address] CHEM 7 (LYTES,BUN,CREA,GLUC) on 09-08-2023 Anion gap [Moles/Vol] 12 mmol/L 7 - 17 mmol/L [facility] Chloride [Moles/Vol] 113 mmol/L High 98 - 10 8 mmol/L [facility] CO2 [Moles/Vol] 21 mmol/L 21 - 31 mmol/L [facility] Creatinine [Mass/Vol] 1.14 mg/dL 0.70 - 1.30 mg/dL [facility] eGFR, CKD-EPI, Male 77 - PINF [facility] Glucose [Mass/Vol] 107 mg/dL High 70 - 99 mg/dL [facility] Osmolality Calc [Osmolality] 296 [facility] Potassium [Moles/Vol] 3.9 mmol/L 3.5 - 5.0 mmol/L [facility] Sodium [Moles/Vol] 142 mmol/L 135 - 145 mmol/L [facility] Urea nitrogen [Mass/Vol] 11 mg/dL 7 - 25 mg/dL [facility] Urea nitrogen/Creatinine [Mass ratio] 10 mg/mg [facility] Anion gap [Moles/Vol] 12 mmol/L Normal 7-17 [facility] Comment on above: Performed By: #### M JO ANN BLOOM, CHM7, HFP ####[facility] (DEFAULT)[address] [place] [address] Chloride [Moles/Vol] 113 mmol/L High 98-108 [facility] Comment on above: Performed By: #### JO ANN RAMÍREZ, CHM7, HFP ####[facility] (DEFAULT)[address] [place] [address] CO2 [Moles/Vol] 21 mmol/L Normal 21-31 [facility] Comment on above: Performed By: #### M JO ANN BLOOM, CHM7, HFP ####[facility] (DEFAULT)[address] [place] [address] Creatinine [Mass/Vol] 1.14 mg/dL Normal 0.70-1.30 [facility] Comment on above: Performed By: #### JO ANN RAMÍREZ, CHM7, HFP ####[facility] (DEFAULT)[address] [place] [address] GFR/1.73 sq M.predicted among non-blacks MDRD (S/P/Bld) [Vol rate/Area] 77 mL/min/{1.73_m2} Normal >=60 [facility] Comment on above: Result Comment: Repo rted eGFR is based on the CKD-EPI 2020 equation using creatinine, age, and sex. Performed By: #### JO ANN RAMÍREZ, CHM7, HFP ####[facility] (DEFAULT)[address] [place] [address] Glucose [Mass/Vol] 107 mg/dL High 70-99 [facility] Comment on above: Performed By: #### JO ANN RAMÍREZ, CHM7, HFP ####[facility] (DEFAULT)[address] [place] [address] Osmolality [Osmolality] 296 mosm/kg Normal 278-305 [facility] Comment on above: Performed By: #### JO ANN RAMÍREZ, CHM7, HFP ####[facility] (DEFAULT)[address] [place] [address] Potassium [Moles/Vol] 3.9 mmol/L Normal 3.5-5.0 [facility] Comment on above: Performed By: #### JO ANN RAMÍREZ, CHM7, HFP ####[facility] (DEFAULT)[address] [place] [address] Sodium [Moles/Vol] 142 mmol/L Normal 135-145 [facility] Comment on above: Performed By: #### M GO, IPB, CHM7, HFP ####[facility] (DEFAULT)[address] [place] [place] [address] Urea nitrogen [Mass/Vol] 11 mg/dL Normal 7-25 [facility] Comment on above: Performed By: #### M GO, IPB, CHM7, HFP ####[facility] (DEFAULT)[address] [place] [address] Urea nitrogen/Creatinine [Mass ratio] 10 mg/mg Normal [facility] Comment on above: Performed By: #### M MERLE, IPB, CHM7, HFP ####[facility] (DEFAULT)[address] [place] [address] HEPATIC FUNCTION PANELon Albumin [Mass/Vol] 2.9 g/dL Low 3.5 - 5.0 g/dL [facility] ALP [Catalytic activity/Vol] 133 U/L High 32 - 126 U/L [facility] ALT [Catalytic activity/Vol] 23 U/L 10 - 52 U/L [facility] AST [Catalytic activity/Vol] 23 U/L 10 - 39 U/L [facility] Bilirubin [Mass/Vol] 0.8 mg/dL [facility].5 mg/dL [facility] Bilirubin.direct [Mass/Vol] 0.2 mg/dL NINF - 0.3 mg/dL [facility] Protein [Mass/Vol] 5.9 g/dL Low 6.4 - 8.3 g/dL [facility] Albumin [Mass/Vol] 2.9 g/dL Low 3.5-5.0 [facility] Comment on above: Performed By: #### M GO, IPB, CHM7, HFP ####[facility] (DEFAULT)[address] [place] [address] ALP [Catalytic activity/Vol] 133 U/L High 32-126 [facility] Comment on above: Performed By: #### M GO, IPB, CHM7, HFP ####[facility] (DEFAULT)[address] [place] [address] ALT [Catalytic activity/Vol] 23 U/L Normal 10-52 [facility] Comment on above: Performed By: #### M GO, IPB, CHM7, HFP ####[facility] (DEFAULT)[address] [place] [address] AST [Catalytic activity/Vol] 23 U/L Normal 10-39 [facility] Comment on above: Performed By: #### M GO, IPB, CHM7, HFP ####[facility] (DEFAULT)[address] [place] [address] Bilirubin [Mass/Vol] 0.8 mg/dL Normal <1.5 [facility] Comment on above: Performed By: #### M GO, IPB, CHM7, HFP ####[facility] (DEFAULT)[address] [place] [address] Bilirubin.indirect [Mass/Vol] 0.2 mg/dL Normal <0.3 [facility] Comment on above: Performed By: #### M GO, IPB, CHM7, HFP ####[facility] (DEFAULT)[address] [place] [address] Protein [Mass/Vol] 5.9 g/dL Low 6.4-8.3 [facility] Comment on above: Performed By: #### M GO, IPB, CHM7, HFP ####[facility] (DEFAULT)[address] [place] [address] MAGNESIUMon 09-08-2023 Interpretation and review of laboratory results Normal [facility] Magnesium [Mass/Vol] 1.8 mg/dL 1.6 - 2 .6 mg/dL [facility] Magnesium [Mass/Vol] 1.8 mg/dL Normal 1.6-2.6 [facility] Comment on above: Performed By: #### M JO ANN BLOOM, CHM7, HFP ####[facility] (DEFAULT)[address] [place] [address] No Panel Informationon 09-08 Interpretation and review of laboratory results Abnormal [facility] PHOSPHATE, INORGANICon 09-08 Interpretation and review of laboratory results Normal [facility] Phosphate [Mass/Vol] 4.1 mg/dL 2.2 - 4 .6 mg/dL [facility] Phosphorous 4.1 mg/dL Normal 2.2-4.6 [facility] Comment on above: Performed By: #### M JO ANN BLOOM, CHM7, HFP ####[facility] (DEFAULT)[address] [place] [address] TACROLIMUS LEVEL, TROUGH ([place] E DRUG LEVEL)on 09-08-2023 Interpretation and review of laboratory results Normal [facility] Tacrolimus (Bld) [Mass/Vol] 8.5 ng/mL [facility] Tacrolimus, Trough 8.5 ng/mL Normal Bone Susana ow Transplant: 4.0-12.0, Therapeutic: 5.0-15.0 [facility] Comment on above: Order Comment: Pleas e draw at specified interval PRIOR to dose. Do not hold dose to wait for level. Specimens batched twice per day, (M-) and once per day weekendsMethod performed is a chemiluminescent microparticle immunoasssay on the [employer] i2000.The range is based on experience at [facility] and users should be aware that target concentrations vary widely depending on concomitant therapy, time post-transplant, and desired degree of immunosuppression. Performed By: #### T ACRO ####[facility] (DEFAULT)[address] [place] [address] CBC,PLATELETSon 09-07-2023 Erythrocyte distribution width (RBC) [Ratio] 13.5 % 10.9 - 14.3 % [facility] Hematocrit (Bld) [Volume fraction] 37.1 % Low 39.6 - 48.8 % [facility] Hemoglobin (Bld) [Mass/Vol] 11.9 g/dL Low 13.4 - 16.8 g/dL [facility] Interpretation and review of laboratory results Abnormal [facility] MCH (RBC) [Entitic mass] 27.7 pg 26.1 - 33.[address] [facility] MCHC (RBC) [Mass/Vol] 32.1 g/dL 31.9 - 36.5 g/dL [facility] MCV (RBC) [Entitic vol] 86.5 fL 79.0 - 94.[address] [facility] Platelet mean volume (Bld) [Entitic vol] 9.6 fL 8.7 - 12.[address] [facility] Platelets (Bld) [#/Vol] 176 10*3/uL 146 - 337 K/uL [facility] RBC (Bld) [#/Vol] 4.29 10*6/uL Low [facility] WBC (Bld) [#/Vol] 4.10 10*3/uL 3.73 - 10. 10 K/uL [facility] Hematocrit (Bld) [Volume fraction] 37.1 % Low 39.6-48.8 [facility] Comment on above: Performed By: #### [facility] ####[facility] (DEFAULT)[address] [place] [address] Hemoglobin (Bld) [Mass/Vol] 11.9 g/dL Low 13.4-16.8 [facility] Comment on above: Performed By: #### [facility] ####[facility] (DEFAULT)[address] [place] [address] MCV (RBC) [Entitic vol] 86.5 fL Normal 79.0-94.5 [facility] Comment on above: Performed By: #### [facility] ####[facility] (DEFAULT)[address] [place] [address] Mean Cell Hgb 27.7 pg Normal 26.1-33.3 [facility] Comment on above: Performed By: #### H EMOGC ####[facility] (DEFAULT)[address] [place] [address] Mean Cell Hgb Conc 32.1 g/dL Normal 31.9-36.5 [facility] Comment on above: Performed By: #### H EMOGC ####[facility] (DEFAULT)[address] [place] [address] Platelet mean volume (Bld) [Entitic vol] 9.6 fL Normal 8.7-12.3 [facility] Comment on above: Performed By: #### H EMOGC ####[facility] (DEFAULT)[address] [place] [address] Platelets (Bld) [#/Vol] 176 10*3/uL Normal 146-337 [facility] Comment on above: Performed By: #### H EMOGC ####[facility] (DEFAULT)[address] [place] [address] RBC (Bld) [#/Vol] 4.29 10*6/uL Low 4.38-5.83 [facility] Comment on above: Performed By: #### H EMOGC ####[facility] (DEFAULT)[address] [place] [address] RBC Distribution 13.5 % Normal 10.9-14.3 [facility] Comment on above: Performed By: #### H EMOGC ####[facility] (DEFAULT)[address] [place] [address] WBC (Bld) [#/Vol] 4.10 10*3/uL Normal 3.73-10.10 [facility] Comment on above: Performed By: #### H EMOGC ####[facility] (DEFAULT)[address] [place] [address] CHEM 7 (LYTES,BUN,CREA,GLUC) on 09-07-2023 Anion gap [Moles/Vol] 13 mmol/L 7 - 17 mmol/L [facility] Chloride [Moles/Vol] 113 mmol/L High 98 - 10 8 mmol/L [facility] CO2 [Moles/Vol] 19 mmol/L Low 21 - 31 mmol/L [facility] Creatinine [Mass/Vol] 1.22 mg/dL 0.70 - 1.30 mg/dL [facility] eGFR, CKD-EPI, Male 71 - PINF [facility] Glucose [Mass/Vol] 107 mg/dL High 70 - 99 mg/dL [facility] Osmolality Calc [Osmolality] [address] [facility] Potassium [Moles/Vol] 3.9 mmol/L 3.5 - 5.0 mmol/L [facility] Sodium [Moles/Vol] 141 mmol/L 135 - 145 mmol/L [facility] Urea nitrogen [Mass/Vol] 13 mg/dL 7 - 25 mg/dL [facility] Urea nitrogen/Creatinine [Mass ratio] 11 mg/mg [facility] Anion gap [Moles/Vol] 13 mmol/L Normal 7-17 [facility] Comment on above: Performed By: #### C HM7, IPB, MGO, HFP ####[facility] (DEFAULT)[address] [place] [address] Chloride [Moles/Vol] 113 mmol/L High 98-108 [facility] Comment on above: Performed By: #### C HM7, IPB, MGO, HFP ####[facility] (DEFAULT)[address] [place] [address] CO2 [Moles/Vol] 19 mmol/L Low 21-31 [facility] Comment on above: Performed By: #### C HM7, IPB, MGO, HFP ####[facility] (DEFAULT)[address] [place] [address] Creatinine [Mass/Vol] 1.22 mg/dL Normal 0.70-1.30 [facility] Comment on above: Performed By: #### C HM7, IPB, MGO, HFP ####[facility] (DEFAULT)[address] [place] [address] GFR/1.73 sq M.predicted among non-blacks MDRD (S/P/Bld) [Vol rate/Area] 71 mL/min/{1.73_m2} Normal >=60 [facility] Comment on above: Result Comment: Repo rted eGFR is based on the CKD-EPI 2020 equation using creatinine, age, and sex. Performed By: #### C HM7, IPB, MGO, HFP ####[facility] (DEFAULT)[address] [place] [address] Glucose [Mass/Vol] 107 mg/dL High 70-99 [facility] Comment on above: Performed By: #### C HM7, IPB, MGO, HFP ####[facility] (DEFAULT)[address] [place] [address] Osmolality [Osmolality] 295 mosm/kg Normal 278-305 [facility] Comment on above: Performed By: #### C HM7, IPB, MGO, HFP ####[facility] (DEFAULT)[address] [place] [address] Potassium [Moles/Vol] 3.9 mmol/L Normal 3.5-5.0 [facility] Comment on above: Performed By: #### Chinedu HM7, IPB, MGO, HFP ####[facility] (DEFAULT)[address] [place] [address] Sodium [Moles/Vol] 141 mmol/L Normal 135-145 [facility] Comment on above: Performed By: #### C HM7, IPB, MGO, HFP ####[facility] (DEFAULT)[address] [place] [address] Urea nitrogen [Mass/Vol] 13 mg/dL Normal 7-25 [facility] Comment on above: Performed By: #### C HM7, IPB, MGO, HFP ####[facility] (DEFAULT)[address] [place] [address] Urea nitrogen/Creatinine [Mass ratio] 11 mg/mg Normal [facility] Comment on above: Performed By: #### C HM7, IPB, MGO, HFP ####[facility] (DEFAULT)[address] [place] [address] HEPATIC FUNCTION PANELon Albumin [Mass/Vol] 2.9 g/dL Low 3.5 - 5.0 g/dL [facility] ALP [Catalytic activity/Vol] 111 U/L 32 - 126 U/L [facility] ALT [Catalytic activity/Vol] 18 U/L 10 - 52 U/L [facility] AST [Catalytic activity/Vol] 23 U/L 10 - 39 U/L [facility] Bilirubin [Mass/Vol] 0.8 mg/dL [facility] - 1.5 mg/dL [facility] Bilirubin.direct [Mass/Vol] 0.3 mg/dL High NINF - 0.3 mg/dL [facility] Protein [Mass/Vol] 6.0 g/dL Low 6.4 - 8.3 g/dL [facility] Albumin [Mass/Vol] 2.9 g/dL Low 3.5-5.0 [facility] Comment on above: Performed By: #### C HM7, IPB, MGO, HFP ####[facility] (DEFAULT)[address] [place] [address] ALP [Catalytic activity/Vol] 111 U/L Normal 32-126 [facility] Comment on above: Performed By: #### C HM7, IPB, MGO, HFP ####[facility] (DEFAULT)[address] [place] [address] ALT [Catalytic activity/Vol] 18 U/L Normal 10-52 [facility] Comment on above: Performed By: #### C HM7, IPB, MGO, HFP ####[facility] (DEFAULT)[address] [place] [address] AST [Catalytic activity/Vol] 23 U/L Normal 10-39 [facility] Comment on above: Performed By: #### C HM7, IPB, MGO, HFP ####[facility] (DEFAULT)[address] [place] [address] Bilirubin [Mass/Vol] 0.8 mg/dL Normal <1.5 [facility] Comment on above: Performed By: #### C HM7, IPB, MGO, HFP ####[facility] (DEFAULT)[address] [place] [address] Bilirubin.indirect [Mass/Vol] 0.3 mg/dL High <0.3 [facility] Comment on above: Performed By: #### C HM7, IPB, MGO, HFP ####[facility] (DEFAULT)[address] [place] [address] Protein [Mass/Vol] 6.0 g/dL Low 6.4-8.3 [facility] Comment on above: Performed By: #### C HM7, IPB, MGO, HFP ####[facility] (DEFAULT)[address] [place] [address] MAGNESIUMon 09-07-2023 Interpretation and review of laboratory results Normal [facility] Magnesium [Mass/Vol] 1.7 mg/dL 1.6 - 2 .6 mg/dL [facility] Magnesium [Mass/Vol] 1.7 mg/dL Normal 1.6-2.6 [facility] Comment on above: Performed By: #### C HM7, IPB, MGO, HFP ####[facility] (DEFAULT)[address] [place] [address] No Panel Informationon 09-07 Interpretation and review of laboratory results Abnormal [facility] PHOSPHATE, INORGANICon 09-07 Interpretation and review of laboratory results Normal [facility] Phosphate [Mass/Vol] 4.4 mg/dL 2.2 - 4 .6 mg/dL [facility] Phosphorous 4.4 mg/dL Normal 2.2-4.6 [facility] Comment on above: Performed By: #### C HM7, IPB, MGO, HFP ####[facility] (DEFAULT)[address] [place] [address] TACROLIMUS LEVEL, TROUGH (TX E DRUG LEVEL)Ordered By: Elizabeth Maldonado on 09-07-2023 Interpretation and review of laboratory results Normal [facility] Tacrolimus (Bld) [Mass/Vol] 7.8 ng/mL [facility] TACROLIMUS LEVEL, TROUGH (TX E DRUG LEVEL)on 09-07-2023 Tacrolimus, Trough 7.8 ng/mL Normal Bone Susana ow Transplant: 4.0-12.0, Therapeutic: 5.0-15.0 [facility] Comment on above: Order Comment: Pleas e draw at specified interval PRIOR to dose. Do not hold dose to wait for level. Specimens batched twice per day, (M-F) and once per day weekendsMethod performed is a chemiluminescent microparticle immunoasssay on the [employer] i2000.The range is based on experience at [facility] and users should be aware that target concentrations vary widely depending on concomitant therapy, time post-transplant, and desired degree of immunosuppression. Performed By: #### T ACRO ####[facility] (DEFAULT)[address] [place] [address] CBC,PLATELETSon 09-06-2023 Erythrocyte distribution width (RBC) [Ratio] 13.4 % 10.9 - 14.3 % [facility] Hematocrit (Bld) [Volume fraction] 38.4 % Low 39.6 - 48.8 % [facility] Hemoglobin (Bld) [Mass/Vol] 11.9 g/dL Low 13.4 - 16.8 g/dL [facility] Interpretation and review of laboratory results Abnormal [facility] MCH (RBC) [Entitic mass] 26.6 pg 26.1 - 33.[address] [facility] MCHC (RBC) [Mass/Vol] 31.0 g/dL Low 31.9 - 36.5 g/dL [facility] MCV (RBC) [Entitic vol] 85.9 fL 79.0 - 94.[address] [facility] Platelet mean volume (Bld) [Entitic vol] 9.7 fL 8.7 - 12.[address] [facility] Platelets (Bld) [#/Vol] 181 10*3/uL 146 - 337 K/uL [facility] RBC (Bld) [#/Vol] 4.47 10*6/uL [facility] WBC (Bld) [#/Vol] 4.41 10*3/uL 3.73 - 10. 10 K/uL [facility] Hematocrit (Bld) [Volume fraction] 38.4 % Low 39.6-48.8 [facility] Comment on above: Performed By: #### [facility] ####[facility] (DEFAULT)[address] [place] [address] Hemoglobin (Bld) [Mass/Vol] 11.9 g/dL Low 13.4-16.8 [facility] Comment on above: Performed By: #### [facility] ####[facility] (DEFAULT)[address] [place] [address] MCV (RBC) [Entitic vol] 85.9 fL Normal 79.0-94.5 [facility] Comment on above: Performed By: #### [facility] ####[facility] (DEFAULT)[address] [place] [address] Mean Cell Hgb 26.6 pg Normal 26.1-33.3 [facility] Comment on above: Performed By: #### [facility] ####[facility] (DEFAULT)[address] [place] [address] Mean Cell Hgb Conc 31.0 g/dL Low 31.9-36.5 [facility] Comment on above: Performed By: #### H EMOGC ####[facility] (DEFAULT)[address] [place] [address] Platelet mean volume (Bld) [Entitic vol] 9.7 fL Normal 8.7-12.3 [facility] Comment on above: Performed By: #### H EMOGC ####[facility] (DEFAULT)[address] [place] [address], [place] [address] Platelets (Bld) [#/Vol] 181 10*3/uL Normal 146-337 [facility] Comment on above: Performed By: #### H EMO ####[facility] (DEFAULT)[address] [place] [address] RBC (Bld) [#/Vol] 4.47 10*6/uL Normal 4.38-5.83 [facility] Comment on above: Performed By: #### H EMO ####[facility] (DEFAULT)[address] [place] [address] RBC Distribution 13.4 % Normal 10.9-14.3 [facility] Comment on above: Performed By: #### H EMOGC ####[facility] (DEFAULT)[address] [place] [address] WBC (Bld) [#/Vol] 4.41 10*3/uL Normal 3.73-10.10 [facility] Comment on above: Performed By: #### H EMOGC ####[facility] (DEFAULT)[address] [place] [address] CHEM 7 (LYTES,BUN,CREA,GLUC) on 09-06-2023 Anion gap [Moles/Vol] 14 mmol/L 7 - 17 mmol/L [facility] Chloride [Moles/Vol] 109 mmol/L High 98 - 10 8 mmol/L [facility] CO2 [Moles/Vol] 19 mmol/L Low 21 - 31 mmol/L [facility] Creatinine [Mass/Vol] 1.26 mg/dL 0.70 - 1.30 mg/dL [facility] eGFR, CKD-EPI, Male 69 - [facility] Glucose [Mass/Vol] 114 mg/dL High 70 - 99 mg/dL [facility] Osmolality Calc [Osmolality] [address] [facility] Potassium [Moles/Vol] 4.1 mmol/L 3.5 - 5.0 mmol/L [facility] Sodium [Moles/Vol] 138 mmol/L 135 - 145 mmol/L [facility] Urea nitrogen [Mass/Vol] 16 mg/dL 7 - 25 mg/dL [facility] Urea nitrogen/Creatinine [Mass ratio] 13 mg/mg [facility] Anion gap [Moles/Vol] 14 mmol/L Normal 7-17 [facility] Comment on above: Performed By: #### NATHANIEL RAMÍREZ, HFP ####[facility] (DEFAULT)[address] [place] [address] Chloride [Moles/Vol] 109 mmol/L High 98-108 [facility] Comment on above: Performed By: #### NATHANIEL RAMÍREZ, HFP ####[facility] (DEFAULT)[address] [place] [address] CO2 [Moles/Vol] 19 mmol/L Low 21-31 [facility] Comment on above: Performed By: #### NATHANIEL RAMÍREZ, HFP ####[facility] (DEFAULT)[address] [place] [address] Creatinine [Mass/Vol] 1.26 mg/dL Normal 0.70-1.30 [facility] Comment on above: Performed By: #### NATHANIEL RAMÍREZ, HFP ####[facility] (DEFAULT)[address] [place] [address] GFR/1.73 sq M.predicted among non-blacks MDRD (S/P/Bld) [Vol rate/Area] 69 mL/min/{1.73_m2} Normal >=60 [facility] Comment on above: Result Comment: Repo rted eGFR is based on the CKD-EPI 2020 equation using creatinine, age, and sex. Performed By: #### NATHANIEL RAMÍREZ, HFP ####[facility] (DEFAULT)[address] [place] [address] Glucose [Mass/Vol] 114 mg/dL High 70-99 [facility] Comment on above: Performed By: #### NATHANIEL RAMÍREZ, HFP ####[facility] (DEFAULT)[address] [place] [address] Osmolality [Osmolality] 291 mosm/kg Normal 278-305 [facility] Comment on above: Performed By: #### NATHANIEL RAMÍREZ, HFP ####[facility] (DEFAULT)[address] [place] [address] Potassium [Moles/Vol] 4.1 mmol/L Normal 3.5-5.0 [facility] Comment on above: Performed By: #### NATHANIEL RAMÍREZ, HFP ####[facility] (DEFAULT)[address] [place] [address] Sodium [Moles/Vol] 138 mmol/L Normal 135-145 [facility] Comment on above: Performed By: #### NATHANIEL RAMÍREZ, HFP ####[facility] (DEFAULT)[address] [place] [address] Urea nitrogen [Mass/Vol] 16 mg/dL Normal 7-25 [facility] Comment on above: Performed By: #### NATHANIEL RAMÍREZ, HFP ####[facility] (DEFAULT)[address] [place] [address] Urea nitrogen/Creatinine [Mass ratio] 13 mg/mg Normal [facility] Comment on above: Performed By: #### M NATHANIEL BLOOM, HFP ####[facility] (DEFAULT)[address] [place] [address] HEPATIC FUNCTION PANELon Albumin [Mass/Vol] 3.0 g/dL Low 3.5 - 5.0 g/dL [facility] ALP [Catalytic activity/Vol] 115 U/L 32 - 126 U/L [facility] ALT [Catalytic activity/Vol] 25 U/L 10 - 52 U/L [facility] AST [Catalytic activity/Vol] 31 U/L 10 - 39 U/L [facility] Bilirubin [Mass/Vol] 1.0 mg/dL NINF - 1.5 mg/dL [facility] Bilirubin.direct [Mass/Vol] 0.3 mg/dL High NINF - 0.3 mg/dL [facility] Protein [Mass/Vol] 6.3 g/dL Low 6.4 - 8.3 g/dL [facility] Albumin [Mass/Vol] 3.0 g/dL Low 3.5-5.0 [facility] Comment on above: Performed By: #### M NATHANIEL BLOOM, HFP ####[facility] (DEFAULT)[address] [place] [address] ALP [Catalytic activity/Vol] 115 U/L Normal 32-126 [facility] Comment on above: Performed By: #### M NATHANIEL BLOOM, HFP ####[facility] (DEFAULT)[address] [place] [address] ALT [Catalytic activity/Vol] 25 U/L Normal 10-52 [facility] Comment on above: Performed By: #### M TJ BLOOM7, HFP ####[facility] (DEFAULT)[address] [place] [place] [address] AST [Catalytic activity/Vol] 31 U/L Normal 10-39 [facility] Comment on above: Performed By: #### M GO, CHM7, HFP ####[facility] (DEFAULT)[address] [place] [address] Bilirubin [Mass/Vol] 1.0 mg/dL Normal <1.5 [facility] Comment on above: Performed By: #### NATHANIEL RAMÍREZ, HFP ####[facility] (DEFAULT)[address] [place] [address] Bilirubin.indirect [Mass/Vol] 0.3 mg/dL High <0.3 [facility] Comment on above: Performed By: #### NATHANIEL RAMÍREZ, HFP ####[facility] (DEFAULT)[address] [place] [address] Protein [Mass/Vol] 6.3 g/dL Low 6.4-8.3 [facility] Comment on above: Performed By: #### NATHANIEL RAMÍREZ, HFP ####[facility] (DEFAULT)[address] [place] [address] MAGNESIUMon 09-06-2023 Interpretation and review of laboratory results Normal [facility] Magnesium [Mass/Vol] 2.0 mg/dL 1.6 - 2 .6 mg/dL [facility] Magnesium [Mass/Vol] 2.0 mg/dL Normal 1.6-2.6 [facility] Comment on above: Performed By: #### NATHANIEL RAMÍREZ, HFP ####[facility] (DEFAULT)[address] [place] [address] No Panel Informationon 09-06 Interpretation and review of laboratory results Abnormal [facility] TACROLIMUS LEVEL, TROUGH (TX E DRUG LEVEL)on 09-06-2023 Interpretation and review of laboratory results Normal [facility] Tacrolimus (Bld) [Mass/Vol] 6.7 ng/mL [facility] Tacrolimus, Trough 6.7 ng/mL Normal Bone Susana ow Transplant: 4.0-12.0, Therapeutic: 5.0-15.0 [facility] Comment on above: Order Comment: Dilan gregory draw at specified interval PRIOR to dose. Do not hold dose to wait for level. Specimens batched twice per day, (M-F) and once per day weekendsMethod performed is a chemiluminescent microparticle immunoasssay on the [employer] i2000.The range is based on experience at [facility] and users should be aware that target concentrations vary widely depending on concomitant therapy, time post-transplant, and desired degree of immunosuppression. Performed By: #### T ACRO ####[facility] (DEFAULT)[address] [place] [address] CBC,PLATELETSon 09-05-2023 Erythrocyte distribution width (RBC) [Ratio] 13.5 % 10.9 - 14.3 % [facility] Hematocrit (Bld) [Volume fraction] 35.6 % Low 39.6 - 48.8 % [facility] Hemoglobin (Bld) [Mass/Vol] 11.4 g/dL Low 13.4 - 16.8 g/dL [facility] Interpretation and review of laboratory results Abnormal [facility] MCH (RBC) [Entitic mass] 27.5 pg 26.1 - 33.[address] [facility] MCHC (RBC) [Mass/Vol] 32.0 g/dL 31.9 - 36.5 g/dL [facility] MCV (RBC) [Entitic vol] 86.0 fL 79.0 - 94.[address] [facility] Platelet mean volume (Bld) [Entitic vol] 10.0 fL 8.7 - 12.[address] [facility] Platelets (Bld) [#/Vol] 170 10*3/uL 146 - 337 K/uL [facility] RBC (Bld) [#/Vol] 4.14 10*6/uL Low [facility] WBC (Bld) [#/Vol] 4.24 10*3/uL 3.73 - 10. 10 K/uL [facility] Hematocrit (Bld) [Volume fraction] 35.6 % Low 39.6-48.8 [facility] Comment on above: Performed By: #### H EMOGC ####[facility] (DEFAULT)[address] [place] [address] Hemoglobin (Bld) [Mass/Vol] 11.4 g/dL Low 13.4-16.8 [facility] Comment on above: Performed By: #### H EMOGC ####[facility] (DEFAULT)[address] [place] [address] MCV (RBC) [Entitic vol] 86.0 fL Normal 79.0-94.5 [facility] Comment on above: Performed By: #### H EMOGC ####[facility] (DEFAULT)[address] [place] [address] Mean Cell Hgb 27.5 pg Normal 26.1-33.3 [facility] Comment on above: Performed By: #### H EMOGC ####[facility] (DEFAULT)[address] [place] [address] Mean Cell Hgb Conc 32.0 g/dL Normal 31.9-36.5 [facility] Comment on above: Performed By: #### H EMOGC ####[facility] (DEFAULT)[address] [place] [address] Platelet mean volume (Bld) [Entitic vol] 10.0 fL Normal 8.7-12.3 [facility] Comment on above: Performed By: #### H EMOGC ####[facility] (DEFAULT)[address] [place] [address] Platelets (Bld) [#/Vol] 170 10*3/uL Normal 146-337 [facility] Comment on above: Performed By: #### H EMOGC ####[facility] (DEFAULT)[address] [place] [address] RBC (Bld) [#/Vol] 4.14 10*6/uL Low 4.38-5.83 [facility] Comment on above: Performed By: #### [facility] [place] ####[facility] (DEFAULT)[address] [place] [address] RBC Distribution 13.5 % Normal 10.9-14.3 [facility] Comment on above: Performed By: #### [facility] [place] ####[facility] (DEFAULT)[address] [place] [address] WBC (Bld) [#/Vol] 4.24 10*3/uL Normal 3.73-10.10 [facility] Comment on above: Performed By: #### [facility] [place] ####[facility] (DEFAULT)[address] [place] [address] CHEM 7 (LYTES,BUN,CREA,GLUC) on 09-05-2023 Anion gap [Moles/Vol] 12 mmol/L 7 - 17 mmol/L [facility] Chloride [Moles/Vol] 107 mmol/L 98 - 10 8 mmol/L [facility] CO2 [Moles/Vol] 20 mmol/L Low 21 - 31 mmol/L [facility] Creatinine [Mass/Vol] 1.43 mg/dL High 0.70 - 1.30 mg/dL [facility] eGFR, CKD-EPI, Male 60 Low - PINF [facility] Glucose [Mass/Vol] 111 mg/dL High 70 - 99 mg/dL [facility] Osmolality Calc [Osmolality] [address] [facility] Potassium [Moles/Vol] 4.2 mmol/L 3.5 - 5.0 mmol/L [facility] Sodium [Moles/Vol] 135 mmol/L 135 - 145 mmol/L [facility] Urea nitrogen [Mass/Vol] 18 mg/dL 7 - 25 mg/dL [facility] Urea nitrogen/Creatinine [Mass ratio] 13 [facility] Anion gap [Moles/Vol] 12 mmol/L Normal 7-17 [facility] Comment on above: Performed By: #### H FP, CHM7, MGO ####[facility] (DEFAULT)[address] [place] [address] Chloride [Moles/Vol] 107 mmol/L Normal 98-108 [facility] Comment on above: Performed By: #### H FP, CHM7, MGO ####[facility] (DEFAULT)[address] [place] [address] CO2 [Moles/Vol] 20 mmol/L Low 21-31 [facility] Comment on above: Performed By: #### H FP, CHM7, MGO ####[facility] (DEFAULT)[address] [place] [address] Creatinine [Mass/Vol] 1.43 mg/dL High 0.70-1.30 [facility] Comment on above: Performed By: #### H FP, CHM7, MGO ####[facility] (DEFAULT)[address] [place] [address] GFR/1.73 sq M.predicted among non-blacks MDRD (S/P/Bld) [Vol rate/Area] 59 mL/min/{1.73_m2} Low >=60 [facility] Comment on above: Result Comment: Repo rted eGFR is based on the CKD-EPI 2020 equation using creatinine, age, and sex. Performed By: #### H FP, CHM7, MGO ####[facility] (DEFAULT)[address] [place] [address] Glucose [Mass/Vol] 111 mg/dL High 70-99 [facility] Comment on above: Performed By: #### H FP, CHM7, MGO ####[facility] (DEFAULT)[address] [place] [address] Osmolality [Osmolality] 286 mosm/kg Normal 278-305 [facility] Comment on above: Performed By: #### H FP, CHM7, MGO ####[facility] (DEFAULT)[address] [place] [address] Potassium [Moles/Vol] 4.2 mmol/L Normal 3.5-5.0 [facility] Comment on above: Performed By: #### H FP, CHM7, MGO ####[facility] (DEFAULT)[address] [place] [address] Sodium [Moles/Vol] 135 mmol/L Normal 135-145 [facility] Comment on above: Performed By: #### H FP, CHM7, MGO ####[facility] (DEFAULT)[address] [place] [address] Urea nitrogen [Mass/Vol] 18 mg/dL Normal 7-25 [facility] Comment on above: Performed By: #### H FP, CHM7, MGO ####[facility] (DEFAULT)[address] [place] [address] Urea nitrogen/Creatinine [Mass ratio] 13 mg/mg Normal [facility] Comment on above: Performed By: #### H FP, CHM7, MGO ####[facility] (DEFAULT)[address] [place] [address] CONTINUOUS CARDIAC MONITORIN G STRIPon 09-05-[address] [facility] HEPATIC FUNCTION PANELon Albumin [Mass/Vol] 2.8 g/dL Low 3.5 - 5.0 g/dL [facility] ALP [Catalytic activity/Vol] 103 U/L 32 - 126 U/L [facility] ALT [Catalytic activity/Vol] 26 U/L 10 - 52 U/L [facility] AST [Catalytic activity/Vol] 38 U/L 10 - 39 U/L [facility] Bilirubin [Mass/Vol] 0.9 mg/dL NINF - 1.5 mg/dL [facility] Bilirubin.direct [Mass/Vol] 0.1 mg/dL NINF - 0.3 mg/dL [facility] Protein [Mass/Vol] 6.1 g/dL Low 6.4 - 8.3 g/dL [facility] Albumin [Mass/Vol] 2.8 g/dL Low 3.5-5.0 [facility] Comment on above: Performed By: #### H FP, CHM7, MGO ####[facility] (DEFAULT)[address] [place] [address] ALP [Catalytic activity/Vol] 103 U/L Normal 32-126 [facility] Comment on above: Performed By: #### H FP, CHM7, MGO ####[facility] (DEFAULT)[address] [place] [address] ALT [Catalytic activity/Vol] 26 U/L Normal 10-52 [facility] Comment on above: Performed By: #### H FP, CHM7, MGO ####[facility] (DEFAULT)[address] [place] [address] AST [Catalytic activity/Vol] 38 U/L Normal 10-39 [facility] Comment on above: Performed By: #### H FP, CHM7, MGO ####[facility] (DEFAULT)[address] [place] [address] Bilirubin [Mass/Vol] 0.9 mg/dL Normal <1.5 [facility] Comment on above: Performed By: #### H FP, CHM7, MGO ####[facility] (DEFAULT)[address] [place] [address] Bilirubin.indirect [Mass/Vol] 0.1 mg/dL Normal <0.3 [facility] Comment on above: Performed By: #### H FP, CHM7, MGO ####[facility] (DEFAULT)[address] [place] [address] Protein [Mass/Vol] 6.1 g/dL Low 6.4-8.3 [facility] Comment on above: Performed By: #### H TJ MONCADA7, MGO ####[facility] (DEFAULT)[address] [place] [address] HISTOPLASMA ANTIGEN, FLUIDon 09-05-2023 FH SOURCE BAL RML [facility] Histo FLD interpretation Negative [facility] Histoplasma Antigen, FLUID Not detected ng/mL [facility] HISTOPLASMA CAPSULATUM/BLAST OMYCES SPECIES,PCR FLUIDon 09-05-2023 HISTO/BLASTO RESULT Negative Not Applicable [facility] Specimen source Nom (Unsp spec) BAL RML [facility] IMMUNOPHENOTYPING, TISSUE/FL UIDon 09-05-2023 BKR DX CODE Use Ordering [facility] Flow Interpretation See Comment [facility] Flow Interpreted by: Yossi Perla MD, PhD [facility] MAGNESIUMon 09-05-2023 Interpretation and review of laboratory results Normal [facility] Magnesium [Mass/Vol] 1.7 mg/dL 1.6 - 2 .6 mg/dL [facility] Magnesium [Mass/Vol] 1.7 mg/dL Normal 1.6-2.6 [facility] Comment on above: Performed By: #### H HELEN MONCADAMJessica, MGO ####[facility] (DEFAULT)[address] [place] [address] No Panel Informationon 09-05 Interpretation and review of laboratory results Abnormal [facility] TACROLIMUS LEVEL, TROUGH (TX E DRUG LEVEL)Ordered By: Raymundo Mehta on 09-05-2023 Interpretation and review of laboratory results Normal [facility] Tacrolimus (Bld) [Mass/Vol] 5.3 ng/mL [facility] TACROLIMUS LEVEL, TROUGH (TX E DRUG LEVEL)on 09-05-2023 Tacrolimus, Trough 5.3 ng/mL Normal Bone Susana ow Transplant: 4.0-12.0, Therapeutic: 5.0-15.0 [facility] Comment on above: Order Comment: Dilan gregory draw at specified interval PRIOR to dose. Do not hold dose to wait for level. Specimens batched twice per day, (M-F) and once per day weekendsMethod performed is a chemiluminescent microparticle immunoasssay on the [employer] i2000.The range is based on experience at [facility] and users should be aware that target concentrations vary widely depending on concomitant therapy, time post-transplant, and desired degree of immunosuppression. Performed By: #### T ACRO ####[facility] (DEFAULT)[address] [place] [address] ARTERIAL BLOOD GAS (FULL GOSS EL)on 09-04-2023 Base excess Calc (Bld) [Moles/Vol] -1.2000 mmol/L -3.0 - 3.0 mmol/L [facility] Calcium.ionized (Bld) [Mass/Vol] 4.79 mg/dL 4.60 - 5.30 mg/dL [facility] Carboxyhemoglobin (Bld) [Mass fraction] 0.7 % NINF - 1.5 % [facility] CO2 (Bld) [Partial pressure] 30 mm[Hg] Low [facility] Glucose [Mass/Vol] 159 mg/dL High 70 - 99 mg/dL [facility] HCO3 (Bld) [Moles/Vol] 22 mmol/L 22 - 28 mmol/L [facility] Hematocrit (Bld) [Volume fraction] 38.0 % Low 40.2 - 50.4 % [facility] Hemoglobin (Bld) [Mass/Vol] 12.6 g/dL Low 13.4 - 16.8 g/dL [facility] Interpretation and review of laboratory results Abnormal [facility] Lactate [Moles/Vol] 2.0 mmol/L High 0.5 - 1. 6 mmol/L [facility] Methemoglobin (Bld) [Mass fraction] 0.0 % NINF - 1.5 % [facility] Oxygen (Bld) [Partial pressure] 62 mm[Hg] Low [facility] Oxygen saturation in Blood 92 % Low 94 - 98 % [facility] Oxyhemoglobin 91 % Low 94 - 98 % [facility] pH (Bld) 7.48 [pH] High 7.35 - 7.[address] [facility] Potassium [Moles/Vol] 4.2 mmol/L 3.5 - 5.0 mmol/L [facility] Sodium [Moles/Vol] 130 mmol/L Low 135 - 145 mmol/L [facility] Specimen source Nom (Unsp spec) Arterial [facility] Base Excess -1.2 mmol/L Normal -3.0-3.0 [facility] Comment on above: Performed By: #### Vale UNDERWOOD ####[facility] (DEFAULT)[address] [place] [address] Carboxyhemoglobin 0.7 % Normal <=1.5 [facility] Comment on above: Performed By: #### Vale UNDERWOOD ####[facility] (DEFAULT)[address] [place] [address] Glucose [Mass/Vol] 159 mg/dL High 70-99 [facility] Comment on above: Performed By: #### G AYSMINE ####[facility] (DEFAULT)[address] [place] [address] HCO3 (Bld) [Moles/Vol] 22 mmol/L Normal 22-28 [facility] Comment on above: Performed By: #### Vale UNDERWOOD ####[facility] (DEFAULT)[address] [place] [address] Hematocrit (Bld) [Volume fraction] 38.0 % Low 40.2-50.4 [facility] Comment on above: Performed By: #### Vale ASALL ####[facility] (DEFAULT)[address] [place] [address] Hemoglobin (Bld) [Mass/Vol] 12.6 g/dL Low 13.4-16.8 [facility] Comment on above: Performed By: #### Vale UNDERWOOD ####[facility] (DEFAULT)[address] [place] [address] Ionized Calcium, Whole Blood 4.79 mg/dL Normal 4.60-5.30 [facility] Comment on above: Performed By: #### Vale UNDERWOOD ####[facility] (DEFAULT)[address] [place] [address], [place] [address] Lactate, Whole Blood 2.0 mmol/L High 0.5-1.6 [facility] Comment on above: Performed By: #### Vale UNDERWOOD ####[facility] (DEFAULT)[address] [place] [address], [place] [address] Methemoglobin 0.0 % Normal <=1.5 [facility] Comment on above: Performed By: #### Vale UNDERWOOD ####[facility] (DEFAULT)[address] [place] [address], [place] [address] Oxyhemoglobin 91 % Low 94-98 [facility] Comment on above: Performed By: #### Vale UNDERWOOD ####[facility] (DEFAULT)[address] [place] [address], [place] [address] pCO2 30 mm Hg Low 32-48 [facility] Comment on above: Performed By: #### Vale UNDERWOOD ####[facility] (DEFAULT)[address] [place] [address], [place] [address] pH (Bld) 7.48 [pH] High 7.35-7.45 [facility] Comment on above: Performed By: #### Vale UNDERWOOD ####[facility] (DEFAULT)[address] [place] [address], [place] [address] pO2 62 mm Hg Low 83-108 [facility] Comment on above: Performed By: #### Vale UNDERWOOD ####[facility] (DEFAULT)[address] [place] [address] Potassium [Moles/Vol] 4.2 mmol/L Normal 3.5-5.0 [facility] [facility] Comment on above: Performed By: #### G YASMINE ####[facility] (DEFAULT)[address] [place] [address] sO2 92 % Low 94-98 [facility] Comment on above: Performed By: #### G YASMINE ####[facility] (DEFAULT)[address] [place] [address] Sodium [Moles/Vol] 130 mmol/L Low 135-145 [facility] Comment on above: Performed By: #### G YASMINE ####[facility] [place] [address], [place] [address] Specimen type Nom (Spec) Arterial Normal [facility] Comment on above: Performed By: #### Vale UNDERWOOD ####[facility] (DEFAULT)[address] [place] [address] Bacteria identified Respirat ory culture Nom (Unsp spec)on 09-04-2023 Bacteria identified Cx Nom (Unsp spec) NO GROWTH DAY 2 OF 2 [facility] Microscopic observation Other stain Nom (Unsp spec) Cytocentrifuge preparation [facility] Microscopic observation Other stain Nom (Unsp spec) Neutrophils, Rare [facility] Microscopic observation Other stain Nom (Unsp spec) Red Blood Cells Present [facility] Microscopic observation Other stain Nom (Unsp spec) No organisms seen [facility] Bacteria identified Respirat ory culture Nom (Unsp spec)Ordered By: Jose Salgado on 09-04-2023 Bacteria identified Cx Nom (Unsp spec) NO GROWTH DAY 2 OF 2 [facility] Microscopic observation Other stain Nom (Unsp spec) Cytocentrifuge preparation [facility] Microscopic observation Other stain Nom (Unsp spec) Neutrophils, Moderate [facility] Microscopic observation Other stain Nom (Unsp spec) Red Blood Cells Present [facility] Microscopic observation Other stain Nom (Unsp spec) No organisms seen [facility] CBC,PLATELETSon 09-04-2023 Erythrocyte distribution width (RBC) [Ratio] 13.2 % 10.9 - 14.3 % [facility] Hematocrit (Bld) [Volume fraction] 38.7 % Low 39.6 - 48.8 % [facility] Hemoglobin (Bld) [Mass/Vol] 12.3 g/dL Low 13.4 - 16.8 g/dL [facility] Interpretation and review of laboratory results Abnormal [facility] MCH (RBC) [Entitic mass] 27.9 pg 26.1 - 33.[address] [facility] MCHC (RBC) [Mass/Vol] 31.8 g/dL Low 31.9 - 36.5 g/dL [facility] MCV (RBC) [Entitic vol] 87.8 fL 79.0 - 94.[address] [facility] Platelet mean volume (Bld) [Entitic vol] 9.8 fL 8.7 - 12.[address] [facility] Platelets (Bld) [#/Vol] 173 10*3/uL 146 - 337 K/uL [facility] RBC (Bld) [#/Vol] 4.41 10*6/uL [facility] WBC (Bld) [#/Vol] 4.57 10*3/uL 3.73 - 10. 10 K/uL [facility] Hematocrit (Bld) [Volume fraction] 38.7 % Low 39.6-48.8 [facility] Comment on above: Performed By: #### [facility] ####[facility] (DEFAULT)[address] [place] [address] Hemoglobin (Bld) [Mass/Vol] 12.3 g/dL Low 13.4-16.8 [facility] Comment on above: Performed By: #### [facility] ####[facility] (DEFAULT)[address] [place] [address] MCV (RBC) [Entitic vol] 87.8 fL Normal 79.0-94.5 [facility] Comment on above: Performed By: #### H EMOGC ####[facility] (DEFAULT)[address] [place] [address] Mean Cell Hgb 27.9 pg Normal 26.1-33.3 [facility] Comment on above: Performed By: #### H EMOGC ####[facility] (DEFAULT)[address] [place] [address] Mean Cell Hgb Conc 31.8 g/dL Low 31.9-36.5 [facility] Comment on above: Performed By: #### H EMOGC ####[facility] (DEFAULT)[address] [place] [address] Platelet mean volume (Bld) [Entitic vol] 9.8 fL Normal 8.7-12.3 [facility] Comment on above: Performed By: #### H EMOGC ####[facility] (DEFAULT)[address] [place] [address] Platelets (Bld) [#/Vol] 173 10*3/uL Normal 146-337 [facility] Comment on above: Performed By: #### H EMOGC ####[facility] (DEFAULT)[address] [place] [address] RBC (Bld) [#/Vol] 4.41 10*6/uL Normal 4.38-5.83 [facility] Comment on above: Performed By: #### H EMOGC ####[facility] (DEFAULT)[address] [place] [address] RBC Distribution 13.2 % Normal 10.9-14.3 [facility] Comment on above: Performed By: #### H EMOGC ####[facility] (DEFAULT)[address] [place] [address] WBC (Bld) [#/Vol] 4.57 10*3/uL Normal 3.73-10.10 [facility] Comment on above: Performed By: #### [facility] ####[facility] (DEFAULT)[address] [place] [address] CHEM 7 (LYTES,BUN,CREA,GLUC) on 09-04-2023 Anion gap [Moles/Vol] 16 mmol/L 7 - 17 mmol/L [facility] Chloride [Moles/Vol] 104 mmol/L 98 - 10 8 mmol/L [facility] CO2 [Moles/Vol] 18 mmol/L Low 21 - 31 mmol/L [facility] Creatinine [Mass/Vol] 1.22 mg/dL 0.70 - 1.30 mg/dL [facility] eGFR, CKD-EPI, Male 71 - PINF [facility] Glucose [Mass/Vol] 124 mg/dL High 70 - 99 mg/dL [facility] Osmolality Calc [Osmolality] 284 [facility] Potassium [Moles/Vol] 3.9 mmol/L 3.5 - 5.0 mmol/L [facility] Sodium [Moles/Vol] 134 mmol/L Low 135 - 145 mmol/L [facility] Urea nitrogen [Mass/Vol] 15 mg/dL 7 - 25 mg/dL [facility] Urea nitrogen/Creatinine [Mass ratio] 12 mg/mg [facility] Anion gap [Moles/Vol] 16 mmol/L Normal 7-17 [facility] Comment on above: Performed By: #### M NATHANIEL BLOOM, HFP ####[facility] (DEFAULT)[address] [place] [address] Chloride [Moles/Vol] 104 mmol/L Normal 98-108 [facility] Comment on above: Performed By: #### TJ RAMÍREZ7, HFP ####[facility] (DEFAULT)[address] [place] [address] CO2 [Moles/Vol] 18 mmol/L Low 21-31 [facility] Comment on above: Performed By: #### NATHANIEL RAMÍREZ, HFP ####[facility] (DEFAULT)[address] [place] [address] Creatinine [Mass/Vol] 1.22 mg/dL Normal 0.70-1.30 [facility] Comment on above: Performed By: #### NATHANIEL RAMÍREZ, HFP ####[facility] (DEFAULT)[address] [place] [address] GFR/1.73 sq M.predicted among non-blacks MDRD (S/P/Bld) [Vol rate/Area] 71 mL/min/{1.73_m2} Normal >=60 [facility] Comment on above: Result Comment: Repo rted eGFR is based on the CKD-EPI 2020 equation using creatinine, age, and sex. Performed By: #### NATHANIEL RAMÍREZ, HFP ####[facility] (DEFAULT)[address] [place] [address], [place] [address] Glucose [Mass/Vol] 124 mg/dL High 70-99 [facility] Comment on above: Performed By: #### NATHANIEL RAMÍREZ, HFP ####[facility] (DEFAULT)[address] [place] [address] Osmolality [Osmolality] 284 mosm/kg Normal 278-305 [facility] Comment on above: Performed By: #### NATHANIEL RAMÍREZ, HFP ####[facility] (DEFAULT)[address] [place] [address] Potassium [Moles/Vol] 3.9 mmol/L Normal 3.5-5.0 [facility] Comment on above: Performed By: #### NATHANIEL RAMÍREZ, HFP ####[facility] (DEFAULT)[address] [place] [address] Sodium [Moles/Vol] 134 mmol/L Low 135-145 [facility] Comment on above: Performed By: #### NATHANIEL RAMÍREZ, HFP ####[facility] (DEFAULT)[address] [place] [address] Urea nitrogen [Mass/Vol] 15 mg/dL Normal 7-25 [facility] Comment on above: Performed By: #### M TJ BLOOM7, HFP ####[facility] (DEFAULT)[address] [place] [address] Urea nitrogen/Creatinine [Mass ratio] 12 mg/mg Normal [facility] Comment on above: Performed By: #### M NATHANIEL BLOOM, HFP ####[facility] (DEFAULT)[address] [place] [address] CMV PCR,FLUIDS,URINE,EYE ETC on 09-04-2023 Specimen source Nom (Unsp spec) BAL LLL [facility] Specimen source Nom (Unsp spec) BAL RML [facility] HEPATIC FUNCTION PANELon Albumin [Mass/Vol] 3.0 g/dL Low 3.5 - 5.0 g/dL [facility] ALP [Catalytic activity/Vol] 112 U/L 32 - 126 U/L [facility] ALT [Catalytic activity/Vol] 22 U/L 10 - 52 U/L [facility] AST [Catalytic activity/Vol] 30 U/L 10 - 39 U/L [facility] Bilirubin [Mass/Vol] 1.2 mg/dL NINF - 1.5 mg/dL [facility] Bilirubin.direct [Mass/Vol] 0.4 mg/dL High NINF - 0.3 mg/dL [facility] Protein [Mass/Vol] 6.4 g/dL 6.4 - 8.3 g/dL [facility] Albumin [Mass/Vol] 3.0 g/dL Low 3.5-5.0 [facility] Comment on above: Performed By: #### M TJ BLOOM7, HFP ####[facility] (DEFAULT)[address] [place] [address] ALP [Catalytic activity/Vol] 112 U/L Normal 32-126 [facility] Comment on above: Performed By: #### NATHANIEL RAMÍREZ, HFP ####[facility] (DEFAULT)[address] [place] [address] ALT [Catalytic activity/Vol] 22 U/L Normal 10-52 [facility] Comment on above: Performed By: #### NATHANIEL RAMÍREZ, HFP ####[facility] (DEFAULT)[address] [place] [address] AST [Catalytic activity/Vol] 30 U/L Normal 10-39 [facility] Comment on above: Performed By: #### NATHANIEL RAMÍREZ, HFP ####[facility] (DEFAULT)[address] [place] [address] Bilirubin [Mass/Vol] 1.2 mg/dL Normal <1.5 [facility] Comment on above: Performed By: #### NATHANIEL RAMÍREZ, HFP ####[facility] (DEFAULT)[address] [place] [address] Bilirubin.indirect [Mass/Vol] 0.4 mg/dL High <0.3 [facility] Comment on above: Performed By: #### NATHANIEL RAMÍREZ, HFP ####[facility] (DEFAULT)[address] [place] [address] Protein [Mass/Vol] 6.4 g/dL Normal 6.4-8.3 [facility] Comment on above: Performed By: #### NATHANIEL RAMÍREZ, HFP ####[facility] (DEFAULT)[address] [place] [address] LEGIONELLA PCRon 09-04-2023 Legionella sp rRNA Probe Ql (Unsp spec) Negative Not Applicable [facility] Specimen source Nom (Unsp spec) BAL RML [facility] - Microbiology an d Antimicrobial susceptibilityon 09-04-2023 CMV DNA ESTELITA+probe Ql (Unsp spec) Negative Negative [facility] MAGNESIUMon 09-04-2023 Magnesium [Mass/Vol] 1.4 mg/dL Low 1.6 - 2 .6 mg/dL [facility] Magnesium [Mass/Vol] 1.4 mg/dL Low 1.6-2.6 [facility] Comment on above: Performed By: #### M , CHM7, HFP ####[facility] (DEFAULT)[address] [place] [address] No Panel Informationon 09-04 Annotation comment [Interpretation] Narrative DNR [facility] PN Report Status DNR [facility] Pneumocystis jiroveci,PCR result Negative Not Applicable [facility] Interpretation and review of laboratory results Abnormal [facility] PNEUMOCYSTIS JIROVECI,PCRon 09-04-2023 Specimen source Nom (Unsp spec) BAL LLL [facility] Specimen source Nom (Unsp spec) BAL RML [facility] Portable XR Chest Viewson RADIOLOGY RADIOLOGY [facility] Radiology Study observation (narrative) [facility] Portable XR Chest ViewsOrder ed By: Joanie Nugent on 09-04-[address] [facility] Work Phone: TACROLIMUS LEVEL, TROUGH ([place] E DRUG LEVEL)on 09-04-2023 Interpretation and review of laboratory results Abnormal [facility] Tacrolimus (Bld) [Mass/Vol] 3.6 ng/mL Low [facility] Tacrolimus, Trough 3.6 ng/mL Low Bone Susana ow Transplant: 4.0-12.0, Therapeutic: 5.0-15.0 [facility] Comment on above: Order Comment: Pleas e draw at specified interval PRIOR to dose. Do not hold dose to wait for level. Specimens batched twice per day, (M-F) and once per day weekendsMethod performed is a chemiluminescent microparticle immunoasssay on the [employer] i2000.The range is based on experience at [facility] and users should be aware that target concentrations vary widely depending on concomitant therapy, time post-transplant, and desired degree of immunosuppression. Performed By: #### T ACRO ####[facility] (DEFAULT)[address] [place] [address] XR CHEST PORTABLEon 09-04-20 23 XR CHEST PORTABLE Normal [facility] ASPERGILLUS ANTIGEN, BALon 1 Galactomannan Ag IA Qn (Unsp spec) <0.500 NINF [facility] Galactomannan Ag IA Qn (Unsp spec) <0.500 NINF [facility] BAL CONSULTOrdered By: Noa Peralta on 09-03-2023 ALVEOLAR MACROPHAGES 32 % [facility] Work Phone: Bal comments Correlation with microbiology stains and cultures is recommended. [facility] Work Phone: Bal Diff Quik Stain Quality Check Acceptable [facility] Work Phone: BKR BAL INTERPRETATION Cellular specimen comprised of alveolar macrophages and small lymphocytes. No definitive microorganisms are observed. Moderate degenerative changes. [facility] Work Phone: BKR DX CODE Use Ordering [facility] Work Phone: Eosinophils Patterson stain Ql (Unsp spec) 0 % [facility] Work Phone: Lymphocytes/100 WBC (Bld) 57 % [facility] Work Phone: Neutrophils/100 WBC Manual cnt (Bronch spec) 11 % [facility] Work Phone: Pathologist review Jame (Unsp spec) [Interp] Leonardo Peralta MD [facility] Work Phone: [facility] Work Phone: BAL CONSULTon 09-03-2023 ALVEOLAR MACROPHAGES 33 % [facility] Bal comments Correlation with microbiology stains and cultures is recommended. Correlation with viral studies is recommended. [facility] Bal Diff Quik Stain Quality Check Acceptable [facility] BKR BAL INTERPRETATION Cellular specimen comprised of alveolar macrophages and small lymphocytes. No definitive microorganisms are observed. Rare degenerating cells with changes suggestive of viral cytopathic effect are noted. Moderate degenerative changes. [facility] BKR DX CODE Use Ordering [facility] Eosinophils Patterson stain Ql (Unsp spec) 0 % [facility] Lymphocytes/100 WBC (Bld) 49 % [facility] Neutrophils/100 WBC Manual cnt (Bronch spec) 18 % [facility] Pathologist review Jame (Unsp spec) [Interp] Leonardo Peralta MD [facility] BRONCHOSCOPYon 09-03-2023 LAB, [facility] CBC,PLATELETSon 09-03-2023 Erythrocyte distribution width (RBC) [Ratio] 13.4 % 10.9 - 14.3 % [facility] Hematocrit (Bld) [Volume fraction] 39.6 % 39.6 - 48.8 % [facility] Hemoglobin (Bld) [Mass/Vol] 12.8 g/dL Low 13.4 - 16.8 g/dL [facility] Interpretation and review of laboratory results Abnormal [facility] MCH (RBC) [Entitic mass] 27.8 pg 26.1 - 33.[address] [facility] MCHC (RBC) [Mass/Vol] 32.3 g/dL 31.9 - 36.5 g/dL [facility] MCV (RBC) [Entitic vol] 85.9 fL 79.0 - 94.[address] [facility] Platelet mean volume (Bld) [Entitic vol] 9.4 fL 8.7 - 12.[address] [facility] Platelets (Bld) [#/Vol] 222 10*3/uL 146 - 337 K/uL [facility] RBC (Bld) [#/Vol] 4.61 10*6/uL [facility] WBC (Bld) [#/Vol] 4.36 10*3/uL 3.73 - 10. 10 K/uL [facility] Hematocrit (Bld) [Volume fraction] 39.6 % Normal 39.6-48.8 [facility] Comment on above: Performed By: #### H EMOGC ####[facility] (DEFAULT)[address] [place] [address] Hemoglobin (Bld) [Mass/Vol] 12.8 g/dL Low 13.4-16.8 [facility] Comment on above: Performed By: #### H EMOGC ####[facility] (DEFAULT)[address] [place] [address] MCV (RBC) [Entitic vol] 85.9 fL Normal 79.0-94.5 [facility] Comment on above: Performed By: #### H EMOGC ####[facility] (DEFAULT)[address] [place] [address] Mean Cell Hgb 27.8 pg Normal 26.1-33.3 [facility] Comment on above: Performed By: #### H EMOGC ####[facility] (DEFAULT)[address] [place] [address] Mean Cell Hgb Conc 32.3 g/dL Normal 31.9-36.5 [facility] Comment on above: Performed By: #### H EMOGC ####[facility] (DEFAULT)[address] [place] [address] Platelet mean volume (Bld) [Entitic vol] 9.4 fL Normal 8.7-12.3 [facility] Comment on above: Performed By: #### H EMOGC ####[facility] (DEFAULT)[address] [place] [address] Platelets (Bld) [#/Vol] 222 10*3/uL Normal 146-337 [facility] Comment on above: Performed By: #### [facility] ####[facility] (DEFAULT)[address] [place] [address] RBC (Bld) [#/Vol] 4.61 10*6/uL Normal 4.38-5.83 [facility] Comment on above: Performed By: #### [facility] ####[facility] (DEFAULT)[address] [place] [address] RBC Distribution 13.4 % Normal 10.9-14.3 [facility] Comment on above: Performed By: #### [facility] ####[facility] (DEFAULT)[address] [place] [address] WBC (Bld) [#/Vol] 4.36 10*3/uL Normal 3.73-10.10 [facility] Comment on above: Performed By: #### [facility] ####[facility] (DEFAULT)[address] [place] [address] CHEM 7 (LYTES,BUN,CREA,GLUC) on 09-03-2023 Anion gap [Moles/Vol] 12 mmol/L 7 - 17 mmol/L [facility] Chloride [Moles/Vol] 104 mmol/L 98 - 10 8 mmol/L [facility] CO2 [Moles/Vol] 24 mmol/L 21 - 31 mmol/L [facility] Creatinine [Mass/Vol] 1.20 mg/dL 0.70 - 1.30 mg/dL [facility] eGFR, CKD-EPI, Male 73 - PINF [facility] Glucose [Mass/Vol] 112 mg/dL High 70 - 99 mg/dL [facility] Osmolality Calc [Osmolality] [address] [facility] Potassium [Moles/Vol] 4.1 mmol/L 3.5 - 5.0 mmol/L [facility] Sodium [Moles/Vol] 136 mmol/L 135 - 145 mmol/L [facility] Urea nitrogen [Mass/Vol] 17 mg/dL 7 - 25 mg/dL [facility] Urea nitrogen/Creatinine [Mass ratio] 14 mg/mg [facility] Anion gap [Moles/Vol] 12 mmol/L Normal 7-17 [facility] Comment on above: Performed By: #### TJ RAMÍREZ7, HFP ####[facility] (DEFAULT)[address] [place] [address] Chloride [Moles/Vol] 104 mmol/L Normal 98-108 [facility] Comment on above: Performed By: #### NATHANIEL RAMÍREZ, HFP ####[facility] (DEFAULT)[address] [place] [address] CO2 [Moles/Vol] 24 mmol/L Normal 21-31 [facility] Comment on above: Performed By: #### NATHANIEL RAMÍREZ, HFP ####[facility] (DEFAULT)[address] [place] [address] Creatinine [Mass/Vol] 1.20 mg/dL Normal 0.70-1.30 [facility] Comment on above: Performed By: #### NATHANIEL RAMÍREZ, HFP ####[facility] (DEFAULT)[address] [place] [address] GFR/1.73 sq M.predicted among non-blacks MDRD (S/P/Bld) [Vol rate/Area] 73 mL/min/{1.73_m2} Normal >=60 [facility] Comment on above: Result Comment: Repo rted eGFR is based on the CKD-EPI 2020 equation using creatinine, age, and sex. Performed By: #### NATHANIEL RAMÍREZ, HFP ####[facility] (DEFAULT)[address] [place] [address] Glucose [Mass/Vol] 112 mg/dL High 70-99 [facility] Comment on above: Performed By: #### NATHANIEL RAMÍREZ, HFP ####[facility] (DEFAULT)[address] [place] [address] Osmolality [Osmolality] 288 mosm/kg Normal 278-305 [facility] Comment on above: Performed By: #### NATHANIEL RAMÍREZ, HFP ####[facility] (DEFAULT)[address] [place] [address] Potassium [Moles/Vol] 4.1 mmol/L Normal 3.5-5.0 [facility] Comment on above: Performed By: #### NATHANIEL RAMÍREZ, HFP ####[facility] (DEFAULT)[address] [place] [address] Sodium [Moles/Vol] 136 mmol/L Normal 135-145 [facility] Comment on above: Performed By: #### NATHANIEL RAMÍREZ, HFP ####[facility] (DEFAULT)[address] [place] [address] Urea nitrogen [Mass/Vol] 17 mg/dL Normal 7-25 [facility] Comment on above: Performed By: #### NATHANIEL RAMÍREZ, HFP ####[facility] (DEFAULT)[address] [place] [address] Urea nitrogen/Creatinine [Mass ratio] 14 mg/mg Normal [facility] Comment on above: Performed By: #### NATHANIEL RAMÍREZ, HFP ####[facility] (DEFAULT)[address] [place] [address] CYTOLOGY, NON-GYNOrdered By: Sherice Jimenez on 09-03-2023 CYTOLOGIC DIAGNOSIS b3prnLRwRLSyeKGwTVQlF0hrdgK lBIWjiZAqY0ZzpviwBPewIM2gJM 2ieHbizRQlzICsMZSpSzHoz7xkg 104oTRkc1biDPHGcaqcaSv2m8er GGLToE6dd5x3bL10CAYmcU0xpBA dABgvoyZkBTjmtyLgldSaXqx5UI V9nDbuLssksQV8tOPnnHZ9DVrml 4IftXrrmOdiLQB1LYRqFspqVOzw lSM0pHTxjQjpzEPmWS1eo6mdsXX 6cdAnZJW5cSwojKG9fGpldwjvp3 avhRR5tAP1KIwurUM3PJneTsNqJ 8jxAPNvrV3eM42wG4ftCIBmxCkj HOucNICwhTF9UWP1WCJus0paZVH jvSUmqWEoUxYuZUjfIym3x4oyWW LcsM48rYBnywN5yBjqVKvgcVQ7R W15QVftx4PlKWFieNwuIGSobU1w YzIzXGxldmVsbmZjbjIzXGxldmV jdsTbRYztytWek2HerjKvwPC3CG glneVcfAO3eSthATWvL7U6J170M PagdwOfyuCwUoFroai4VHJzyEuo bGlzdGxldmVsXGxldmVsbmZjMjN vaZP8ISqpDgKmMxCopMI5UTxuUc AkhEY9GSrmsAYtoLA3GEtxnEW9D Se5WHb0IEobHClrFco3cXfusZZ4 TKbhdE7qKEFgO57xFmM5w6lqvFC 5tYY6QTrnePI5LXdbNzSfE9gyCL IshL9tG71gM3zgVFIjzRhfZKukW JEmoPF5ICK6VLYkr3awCYWunMDb uXZcNeHiNWdkDuv6s0nwZVEhdI8 2fBXfexA6sXhiEO47AMyxk1VhNS IapVcqWLLhmY3vUiByAIttvkCce mZjbjIzXGxldmVsamMwXGxldmVs q2UbcpWgfRH1IQbpffKbeHI2lCr gFNRlQ5E6P106QVpklvHlmqSbQg Kvwqf0KZFumBbwgDxjpNmjndTsL XnkojDxzuHhSoAkxYA8MVtvXgPg UsGtkBB0NHkaKwKbnMY8NDaapBN jpSZ1ELnpnKH4IFy1TWp0QVziKH rpTea7fQcutTB3VTxylA1iMNHmW 27yKwU8k5zrqSQ2pOU3VFgirSM3 HYaoIjOlX7xdODVxjL8cZ80fJ2w gYWGyyOawXCksWAJksGH5MUS4EQ Szs5sqRTRloRVdbZXmUjMzSArsZ bx9d3fxZQBjaN36yOCjsoW1uVjj LA32AYsmt5FaTOClgXdxMOXhrH4 mYzIzXGxldmVsbmZjbjIzXGxldm OyouMzUXvxehAup3ZjxhHgmXX5A CafetAycKP4cJsrGXOzX6Z2M389 YMhqsmKbbjWjSvZhqnk0FTBkvPo cbGlzdGxldmVsXGxldmVsbmZjMj BnuIM0XMfhIsPgNbSnrXO1BGspE jNzrDW4JZhbcUJbfFF2KCxnjNQ3 UXc1SMu3JGzlQHnvUza2uClhhKV 7YAjduO7cAUZzV62mQtL6oF62JS vrzDxgvR52XMEylVAmmRRutNT6M VzadNehaB79QUXjfXXfZNago0Ag NANrPeG0VZW3ZNAfhWbcuB44IRL foGWvY873mqTiROqaTY80KWSwnM UjwlWkZnRnBLDeqRHulFX5JHWxY H5kbfvkFBdcWFzrBUWcouU0YTHr eFAcB9GrQWAoNV3fwoczDCD8IMf wIEHbNKT4SpRhLXHdh1Twpnu6Kk KaiYw2f2ggKLAuFNHetVngt4qxS LQ9IAQdzWXsE0rnoQ5cMZDwOP4b hgdnv8ilRDcdZQseEGNywJX7duB 1NIXxsGQhU5TvaK6nGSQgMJKaay GibDzrsB4rDvsfolPtRLHqIFBAX bWTKh6JF4uOZYhJXM3CGUMlYHXN ZYbRRVYWWNQMSZiVH3ANTVgBZrA mQXVoTIPpH2lEC8gRI4gdWvseWb KlJQfcJSKrGvUsK0AnMFVftzogS APfWXXUHK6VRBVUTVIZNw2GRRA5 VKUhjbsvnID9PBbiinTkrDv1tFR edQppiU1fJcmnbvSyPLWwGBDHfp PUZIyyJ49eofOvF5BmbGMtZCHnA IalVV42qYSrCIRctZNfJIr3dI0d CJnumOhvpkXJpWXuyE7vaogfEPs jZjBccGFyXGxpMFxsczBccGFyfQ == [facility] Work Phone: Case Report [facility] Work Phone: Clinical History a1dadOPmRNDeqPGxIQBq S8mdymF nTNQfrHHkH6VmihlvAMonHO0sJF 6rjXsorFCflDHbSQCcHcGro3nwi 322tZEir2xsTMEMpcfzvFc9qBdp J68jw5H5BhjhZ8ugPITjAEgxITG sTDqepNUtTRj6BJAtaSCgnrHzVc XcOPZsgMXltUE1CPYiAD4vldtfV RivNOqwYBLklmF0BIPtbTMfI3Jw VQLiGW7ecjrcTME2PNctROSkRTC 7NjSbNADgl1Tnskr1XiAuiVt2n6 brPXOeYAAilFdnt6gqMDW2CWGtp DAkD2gwoP2aHWOxOC0hcvmjt8qi ROfyJBqtUNUnnUN0xyD6RFCitNJ cA3RlgJ7uADSaVBMrqpNasDdsaM 5cZnMyMFxjZjEgUmVuYWwgdHJhb oAlpAKdnK0iPWFiir6= [facility] Work Phone: For Immediate Release to Patient's [facility]? Yes Yes [facility] Work Phone: Gross Description g7wmuFEoVVPlaKTkCHOn Y7fmriJ yYGExvJTdO3WqwyxyFEtqMR1nBV 9tsHrwvPBceCIsVQLnRaWnw7ryb 768sOHer8quGHKPscuikMk8wKsu P05ij3I0FaleK77etXHsOUT0PPN rVYZupHSyOIOkTNN4HJUboHIiW4 nhAYEoGI0xbiebXSfcXCrsSKOqg ZK7HYMzuHGjN9TeBKNeJJsgKFIv ici4TgVlHm5rlCXerJfpBSkdTSC kXHBsYWluXGZzMjAgTExMIEJBTF aaPAIgXZAcfCGzIGp0CCOcpD5qx JVeznOvgWShiM6neVqiZBboXRWc HNWEDWQouWvxAMUIUIAmi3AfyI1 ccGFyXHBhcmRccGFyXHBhcn0= [facility] Work Phone: [facility] Work Phone: HEPATIC FUNCTION PANELon Albumin [Mass/Vol] 3.2 g/dL Low 3.5 - 5.0 g/dL [facility] ALP [Catalytic activity/Vol] 118 U/L 32 - 126 U[facility] ALT [Catalytic activity/Vol] 25 U/L 10 - 52 U/L [facility] AST [Catalytic activity/Vol] 32 U/L 10 - 39 U/L [facility] Bilirubin [Mass/Vol] 1.0 mg/dL NINF - 1.5 mg/dL [facility] Bilirubin.direct [Mass/Vol] 0.3 mg/dL High NINF - 0.3 mg/dL [facility] Protein [Mass/Vol] 6.5 g/dL 6.4 - 8.3 g/dL [facility] Albumin [Mass/Vol] 3.2 g/dL Low 3.5-5.0 [facility] Comment on above: Performed By: #### TJ RAMÍREZ7, HFP ####[facility] (DEFAULT)[address] [place] [address] ALP [Catalytic activity/Vol] 118 U/L Normal 32-126 [facility] Comment on above: Performed By: #### TJ RAMÍREZ7, HFP ####[facility] (DEFAULT)[address] [place] [address] ALT [Catalytic activity/Vol] 25 U/L Normal 10-52 [facility] Comment on above: Performed By: #### Rdo BLOOM CHM7, HFP ####[facility] (DEFAULT)[address] [place] [address] AST [Catalytic activity/Vol] 32 U/L Normal 10-39 [facility] Comment on above: Performed By: #### Rdo BLOOM CHM7, HFP ####[facility] (DEFAULT)[address] [place] [address] Bilirubin [Mass/Vol] 1.0 mg/dL Normal <1.5 [facility] Comment on above: Performed By: #### Rod BLOOM CHM7, HFP ####[facility] (DEFAULT)[address] [place] [address] Bilirubin.indirect [Mass/Vol] 0.3 mg/dL High <0.3 [facility] Comment on above: Performed By: #### M MERLE, CHM7, HFP ####[facility] (DEFAULT)[address] [facility] [place] [address] Protein [Mass/Vol] 6.5 g/dL Normal 6.4-8.3 [facility] Comment on above: Performed By: #### M MERLE, CHM7, HFP ####[facility] (DEFAULT)[address] [place] [address] HISTOPLASMA AND BLASTOMYCES ANTIGEN, ENZYME IMMUNOASSAY, SERMon 09-03-2023 Histoplasma/Blastomy antonia Ag Result Detected Critically abnormal Not Detected [facility] Histoplasma/Blastomy antonia Ag Value 5.3 ng/mL [facility] Interpretation and review of laboratory results Abnormal [facility] IMMUNOPHENOTYPING, TISSUE/FL UIDon 09-03-2023 BKR DX CODE Use Ordering Normal [facility] Comment on above: Order Comment: Pleas e lab add on to specimen collected yesterdayIMMUNOPHENOTYPING DIAGNOSISPATIENT NAME: GEORGE SLATER: 1970MRN: [id number]#: [id number] BY: Yossi Perla M.D,, Ph.D. [id number] TYPE: Bronchial Alveolar LavageLABORATORY INTERPRETATION:There is no [...] performance characteristicsdetermined The [facility]. It has notbeen cleared or approved by the FDA. This laboratory is certifiedunder the Clinical Laboratory Improvement Amendments (CLIA)as qualified to perform high complexity clinical laboratorytesting. This test is used for clinical purposes. It should notbe regarded as investigational or for research.The [facility] Flow Cytometry Laboratory lower limitof CLL MRD detection is 0.1% of the gated lymphocytes. Performed By: #### G IPP ####[facility] (DEFAULT)[address] [place] [address] Flow Interpretation See Comment Normal [facility] Comment on above: Order Comment: Plejoan e lab add on to specimen collected yesterdayIMMUNOPHENOTYPING DIAGNOSISPATIENT NAME: GEORGE SLATER: 1970MRN: [id number]#: [id number] BY: Yossi Perla M.D,, Ph.D. [id number] TYPE: Bronchial Alveolar LavageLABORATORY INTERPRETATION:There is no [...] characteristicsdetermined The Flow Cytometry Laboratory at [facility]. It has notbeen cleared or approved by the FDA. This laboratory is certifiedunder the Clinical Laboratory Improvement Amendments (CLIA)as qualified to perform high complexity clinical laboratorytesting. This test is used for clinical purposes. It should notbe regarded as investigational or for research.The [facility] Flow Cytometry Laboratory lower limitof CLL MRD detection is 0.1% of the gated lymphocytes. Performed By: #### G IPP ####[facility] (DEFAULT)[address] [place] [address] Flow Interpreted by: Yossi Perla MD, PhD [facility] Comment on above: Order Comment: Samrajoan gregory lab add on to specimen collected yesterdayIMMUNOPHENOTYPING DIAGNOSISPATIENT NAME: GEORGE SLATER: 1970MRN: [id number]#: [id number] BY: Yossi Perla M.D,, Ph.D. [id number] TYPE: Bronchial Alveolar LavageLABORATORY INTERPRETATION:There is no [...] characteristicsdetermined The Flow Cytometry Laboratory at [facility]. It has notbeen cleared or approved by the FDA. This laboratory is certifiedunder the Clinical Laboratory Improvement Amendments (CLIA)as qualified to perform high complexity clinical laboratorytesting. This test is used for clinical purposes. It should notbe regarded as investigational or for research.The [facility] Flow Cytometry Laboratory lower limitof CLL MRD detection is 0.1% of the gated lymphocytes. Performed By: #### G IPP ####[facility] (DEFAULT)[address] [place] [address] MAGNESIUMon 09-03-2023 Interpretation and review of laboratory results Normal [facility] Magnesium [Mass/Vol] 1.6 mg/dL 1.6 - 2 .6 mg/dL [facility] Magnesium [Mass/Vol] 1.6 mg/dL Normal 1.6-2.6 [facility] Comment on above: Performed By: #### M MERLE, CHM7, HFP ####[facility] (DEFAULT)[address] [place] [address] No Panel Informationon 09-03 Interpretation and review of laboratory results Abnormal [facility] PARVOVIRUS (B19) DNA, PCR, B LOODon 09-03-2023 PARVOVIRUS B19 BY RAPID PCR Not detected Not Detected [facility] TX SPEC SOURCE Whole Blood [facility] Portable XR Chest Viewson RADIOLOGY RADIOLOGY [facility] Radiology Study observation (narrative) [facility] Portable XR Chest ViewsOrder ed By: [place] on 09-03-[address] [facility] Work Phone: XR CHEST PORTABLEon 09-03-20 23 XR CHEST PORTABLE Normal [facility] ACID FAST CULTUREon 09-02-20 23 Bacteria identified Cx Nom (Unsp spec) NO GROWTH DAY 42 OF 42 Normal [facility] Comment on above: Performed By: #### A FB ####[facility] (DEFAULT)[address] [place] [address] Fluorochrome Stain No acid Fast Bacillus Seen Normal [facility] Comment on above: Performed By: #### A FB ####[facility] (DEFAULT)[address] [place] [address] Bacteria identified Cx Nom (Unsp spec) NO GROWTH DAY 42 OF 42 Normal [facility] Comment on above: Order Comment: BAL A FB culture. Clinical suspicion for non-tuberculous mycobacteria Performed By: #### A FB ####[facility] (DEFAULT)[address] [place] [place] [address] Fluorochrome Stain No acid Fast Bacillus Seen Normal [facility] Comment on above: Order Comment: BAL A FB culture. Clinical suspicion for non-tuberculous mycobacteria Performed By: #### A FB ####[facility] (DEFAULT)[address] [place] [address] ASPERGILLUS (GALACTOMANNAN), ANTIGENon 09-02-2023 Galactomannan Ag IA Qn <0.500 NINF [facility] ASPERGILLUS ANTIGEN, BALon 1 Aspergillus Galactomannan Antigen, BAL <0.500 Normal <0.5 [facility] Comment on above: Result Comment: ---- ADDITIONAL INFORMATION This is a qualitative test and the resulted index value isnot indicative of disease severity. Serial testing isrecommended for patients at high risk for invasiveaspergillosis.This assay was performed using the FDA-cleared Bio-[employer]at[employer] Aspergillus Galactomannan EIA.Test Performed by:[address] Director: Rosendo Bose M.D. Ph.D.; CLIA# [id number] Performed By: #### X ASGFL ####[facility] (DEFAULT)[address] [place] [address] Aspergillus Galactomannan Antigen, BAL <0.500 Normal <0.5 [facility] Comment on above: Order Comment: BAL a spirgillus antigen Result Comment: ---- ADDITIONAL INFORMATION This is a qualitative test and the resulted index value isnot indicative of disease severity. Serial testing isrecommended for patients at high risk for invasiveaspergillosis.This assay was performed using the FDA-cleared Bio-[employer]Plat[employer] Aspergillus Galactomannan EIA.Test Performed by:[place] [id number] Director: Rosendo Bose M.D. Ph.D.; CLIA# [id number] Performed By: #### X ASGFL ####[facility] (DEFAULT)[address] [place] [address] ATYPICAL BACTERIAL PNEUMONIA ,PCROrdered By: Shari Contreras on 09-02-2023 B. parapertussis DNA ESTELITA+probe Ql (Unsp spec) Not detected Not Detected [facility] B. pertussis DNA ESTELITA+probe Ql (Unsp spec) Not detected Not Detected [facility] C. pneumoniae DNA ESTELITA+probe Ql (Unsp spec) Not detected Not Detected [facility] Interpretation and review of laboratory results Normal [facility] M. pneumoniae DNA ESTELITA+probe Ql (Unsp spec) Not detected Not Detected [facility] ATYPICAL BACTERIAL PNEUMONIA ,PCRon 09-02-2023 Bordetella Parapertussis Not detected Normal Not Detected [facility] Comment on above: Order Comment: [...] Clinical Microbiology Laboratory at The [facility]. It has not been cleared or approved by the FDA. The laboratory is required under CLIA as qualified to perform high-complexity testing. This test is used for clinical purposes. It should not be regarded as investigational or for research. Performed By: #### A TYPNE ####[facility] (DEFAULT)[address] [place] [address] Bordetella Pertussis Not detected Normal Not Detected [facility] Comment on above: Order Comment: [...] Clinical Microbiology Laboratory at The [facility]. It has not been cleared or approved by the FDA. The laboratory is required under CLIA as qualified to perform high-complexity testing. This test is used for clinical purposes. It should not be regarded as investigational or for research. Performed By: #### A TYPNE ####[facility] (DEFAULT)[address] [address] Chlamydia Pneumoniae Not detected Normal Not Detected [facility] Comment on above: Order Comment: [...] Clinical Microbiology Laboratory at The [facility]. It has not been cleared or approved by the FDA. The laboratory is required under CLIA as qualified to perform high-complexity testing. This test is used for clinical purposes. It should not be regarded as investigational or for research. Performed By: #### A TYPNE ####[facility] (DEFAULT)[address] [address] Mycoplasma Pneumoniae Not detected Normal Not Detected [facility] Comment on above: Order Comment: [...] Clinical Microbiology Laboratory at The [facility]. It has not been cleared or approved by the FDA. The laboratory is required under CLIA as qualified to perform high-complexity testing. This test is used for clinical purposes. It should not be regarded as investigational or for research. Performed By: #### A TYPNE ####[facility] (DEFAULT)[address] [place] [address] BAL CONSULTon 09-02-2023 ALVEOLAR MACROPHAGES 33 % Normal [facility] Comment on above: Order Comment: BAL c onsultIf > 15% lymphocytes - please send for flow. Performed By: #### B ALC ####[facility] (DEFAULT)[address] [place] [address] Bal comments Correlation with microbiology stains and cultures is recommended. Correlation with viral studies is recommended. Normal [facility] Comment on above: Order Comment: BAL c onsultIf > 15% lymphocytes - please send for flow. Performed By: #### B ALC ####[facility] (DEFAULT)[address] [place] [address], [place] [address] Bal Diff Quik Stain Quality Check Acceptable Normal [facility] Comment on above: Order Comment: BAL c onsultIf > 15% lymphocytes - please send for flow. Performed By: #### B ALC ####[facility] (DEFAULT)[address] [place] [address], [place] [address] Bal Reviewed By: Leonardo Peralta MD [facility] Comment on above: Order Comment: BAL c onsultIf > 15% lymphocytes - please send for flow. Performed By: #### B ALC ####[facility] (DEFAULT)[address] [place] [address], [place] [address] BKR BAL INTERPRETATION Cellular specimen comprised of alveolar macrophages and small lymphocytes. No definitive microorganisms are observed. Rare degenerating cells with changes suggestive of viral cytopathic effect are noted. Moderate degenerative changes. Normal [facility] Comment on above: Order Comment: BAL c onsultIf > 15% lymphocytes - please send for flow. Performed By: #### B ALC ####[facility] (DEFAULT)[address] [place] [address] BKR DX CODE Use Ordering Normal [facility] Comment on above: Order Comment: BAL c onsultIf > 15% lymphocytes - please send for flow. Performed By: #### B ALC ####[facility] (DEFAULT)[address] [place] [address] Eosinophils/100 WBC (Bld) 0 % Normal [facility] Comment on above: Order Comment: BAL c onsultIf > 15% lymphocytes - please send for flow. Performed By: #### B ALC ####[facility] (DEFAULT)[address] [place] [address] Lymphocytes/100 WBC (Bld) 49 % Normal [facility] Comment on above: Order Comment: BAL c onsultIf > 15% lymphocytes - please send for flow. Performed By: #### B ALC ####[facility] (DEFAULT)[address] [place] [address], [place] [address] Neutrophils/100 WBC (Bld) 18 % Normal [facility] Comment on above: Order Comment: BAL c onsultIf > 15% lymphocytes - please send for flow. Performed By: #### B ALC ####[facility] (DEFAULT)[address] [place] [address], [place] [address] ALVEOLAR MACROPHAGES 32 % Normal [facility] Comment on above: Order Comment: BAL c onsult for cell differential and pathologist review. Please do flow cytometry if > 12% lymphocytes Performed By: #### B ALC ####[facility] (DEFAULT)[address] [place] [address], [place] [address] Bal comments Correlation with microbiology stains and cultures is recommended. Normal [facility] Comment on above: Order Comment: BAL c onsult for cell differential and pathologist review. Please do flow cytometry if > 12% lymphocytes Performed By: #### B ALC ####[facility] (DEFAULT)[address] [place] [address] Bal Diff Quik Stain Quality Check Acceptable Normal [facility] Comment on above: Order Comment: BAL c onsult for cell differential and pathologist review. Please do flow cytometry if > 12% lymphocytes Performed By: #### B ALC ####[facility] (DEFAULT)[address] [place] [address], [place] [address] Bal Reviewed By: Leonardo Peralta MD Normal [facility] Comment on above: Order Comment: BAL c onsult for cell differential and pathologist review. Please do flow cytometry if > 12% lymphocytes Performed By: #### B ALC ####[facility] (DEFAULT)[address] [place] [address] BKR BAL INTERPRETATION Cellular specimen comprised of alveolar macrophages and small lymphocytes. No definitive microorganisms are observed. Moderate degenerative changes. Normal [facility] Comment on above: Order Comment: BAL c onsult for cell differential and pathologist review. Please do flow cytometry if > 12% lymphocytes Performed By: #### B ALC ####[facility] (DEFAULT)[address] [place] [address] BKR DX CODE Use Ordering Normal [facility] Comment on above: Order Comment: BAL c onsult for cell differential and pathologist review. Please do flow cytometry if > 12% lymphocytes Performed By: #### B ALC ####[facility] (DEFAULT)[address] [place] [address], [place] [address] Eosinophils/100 WBC (Bld) 0 % Normal [facility] Comment on above: Order Comment: BAL c onsult for cell differential and pathologist review. Please do flow cytometry if > 12% lymphocytes Performed By: #### B ALC ####[facility] (DEFAULT)[address] [place] [place] [address] Lymphocytes/100 WBC (Bld) 57 % Normal [facility] Comment on above: Order Comment: BAL c onsult for cell differential and pathologist review. Please do flow cytometry if > 12% lymphocytes Performed By: #### B ALC ####[facility] (DEFAULT)[address] [place] [address] Neutrophils/100 WBC (Bld) 11 % Normal [facility] Comment on above: Order Comment: BAL c onsult for cell differential and pathologist review. Please do flow cytometry if > 12% lymphocytes Performed By: #### B ALC ####[facility] (DEFAULT)[address] [place] [place] [address] BRONCHOSCOPYon 09-02-2023 Radiology Study observation (narrative) [facility] Bacteria identified Cx Nom ( Bld)on 09-02-2023 Bacteria identified Cx Nom (Unsp spec) NO GROWTH DAY 5 OF 5 [facility] CBC,PLATELETSon 09-02-2023 Erythrocyte distribution width (RBC) [Ratio] 13.2 % 10.9 - 14.3 % [facility] Hematocrit (Bld) [Volume fraction] 39.9 % 39.6 - 48.8 % [facility] Hemoglobin (Bld) [Mass/Vol] 12.9 g/dL Low 13.4 - 16.8 g/dL [facility] Interpretation and review of laboratory results Abnormal [facility] MCH (RBC) [Entitic mass] 27.9 pg 26.1 - 33.[address] [facility] MCHC (RBC) [Mass/Vol] 32.3 g/dL 31.9 - 36.5 g/dL [facility] MCV (RBC) [Entitic vol] 86.4 fL 79.0 - 94.[address] [facility] Platelet mean volume (Bld) [Entitic vol] 9.5 fL 8.7 - 12.[address] [facility] Platelets (Bld) [#/Vol] 210 10*3/uL 146 - 337 K/uL [facility] RBC (Bld) [#/Vol] 4.62 10*6/uL [facility] WBC (Bld) [#/Vol] 4.12 10*3/uL 3.73 - 10. 10 K/uL [facility] Hematocrit (Bld) [Volume fraction] 39.9 % Normal 39.6-48.8 [facility] Comment on above: Performed By: #### [facility] ####[facility] (DEFAULT)[address] [place] [address] Hemoglobin (Bld) [Mass/Vol] 12.9 g/dL Low 13.4-16.8 [facility] Comment on above: Performed By: #### [facility] ####[facility] (DEFAULT)[address] [place] [address] MCV (RBC) [Entitic vol] 86.4 fL Normal 79.0-94.5 [facility] Comment on above: Performed By: #### H EMOGC ####[facility] (DEFAULT)[address] [place] [address] Mean Cell Hgb 27.9 pg Normal 26.1-33.3 [facility] Comment on above: Performed By: #### H EMOGC ####[facility] (DEFAULT)[address] [place] [address] Mean Cell Hgb Conc 32.3 g/dL Normal 31.9-36.5 [facility] Comment on above: Performed By: #### H EMOGC ####[facility] (DEFAULT)[address] [place] [address] Platelet mean volume (Bld) [Entitic vol] 9.5 fL Normal 8.7-12.3 [facility] Comment on above: Performed By: #### H EMOGC ####[facility] (DEFAULT)[address] [place] [address] Platelets (Bld) [#/Vol] 210 10*3/uL Normal 146-337 [facility] Comment on above: Performed By: #### H EMOGC ####[facility] (DEFAULT)[address] [place] [address] RBC (Bld) [#/Vol] 4.62 10*6/uL Normal 4.38-5.83 [facility] Comment on above: Performed By: #### H EMOGC ####[facility] (DEFAULT)[address] [place] [address] RBC Distribution 13.2 % Normal 10.9-14.3 [facility] Comment on above: Performed By: #### H EMOGC ####[facility] (DEFAULT)[address] [place] [address] WBC (Bld) [#/Vol] 4.12 10*3/uL Normal 3.73-10.10 [facility] Comment on above: Performed By: #### [facility] ####[facility] (DEFAULT)[address] [place] [address] CHEM 7 (LYTES,BUN,CREA,GLUC) on 09-02-2023 Anion gap [Moles/Vol] 13 mmol/L 7 - 17 mmol/L [facility] Chloride [Moles/Vol] 105 mmol/L 98 - 10 8 mmol/L [facility] CO2 [Moles/Vol] 22 mmol/L 21 - 31 mmol/L [facility] Creatinine [Mass/Vol] 1.25 mg/dL 0.70 - 1.30 mg/dL [facility] eGFR, CKD-EPI, Male 70 - PINF [facility] Glucose [Mass/Vol] 105 mg/dL High 70 - 99 mg/dL [facility] Osmolality Calc [Osmolality] 287 [facility] Potassium [Moles/Vol] 4.3 mmol/L 3.5 - 5.0 mmol/L [facility] Sodium [Moles/Vol] 136 mmol/L 135 - 145 mmol/L [facility] Urea nitrogen [Mass/Vol] 16 mg/dL 7 - 25 mg/dL [facility] Urea nitrogen/Creatinine [Mass ratio] 13 mg/mg [facility] Anion gap [Moles/Vol] 13 mmol/L Normal 7-17 [facility] Comment on above: Performed By: #### C HM7, HFP, MGO ####[facility] (DEFAULT)[address] [place] [address] Chloride [Moles/Vol] 105 mmol/L Normal 98-108 [facility] Comment on above: Performed By: #### C HM7, HFP, MGO ####[facility] (DEFAULT)[address] [place] [address] CO2 [Moles/Vol] 22 mmol/L Normal 21-31 [facility] Comment on above: Performed By: #### C TAVO MEDLEY, MGO ####[facility] (DEFAULT)[address] [place] [address] Creatinine [Mass/Vol] 1.25 mg/dL Normal 0.70-1.30 [facility] Comment on above: Performed By: #### Chinedu HMTAVO Lopez, MGO ####[facility] (DEFAULT)[address] [place] [address] GFR/1.73 sq M.predicted among non-blacks MDRD (S/P/Bld) [Vol rate/Area] 69 mL/min/{1.73_m2} Normal >=60 [facility] Comment on above: Result Comment: Repo rted eGFR is based on the CKD-EPI 2020 equation using creatinine, age, and sex. Performed By: #### C TAVO MEDLEY, MGO ####[facility] (DEFAULT)[address] [place] [address] Glucose [Mass/Vol] 105 mg/dL High 70-99 [facility] Comment on above: Performed By: #### Chinedu MEDLEY HFP, MGO ####[facility] (DEFAULT)[address] [place] [address] Osmolality [Osmolality] 287 mosm/kg Normal 278-305 [facility] Comment on above: Performed By: #### C JASMYNE, TAVO, MGO ####[facility] (DEFAULT)[address] [place] [address] Potassium [Moles/Vol] 4.3 mmol/L Normal 3.5-5.0 [facility] Comment on above: Performed By: #### Chinedu HM7, HFP, MGO ####[facility] (DEFAULT)[address] [place] [address] Sodium [Moles/Vol] 136 mmol/L Normal 135-145 [facility] Comment on above: Performed By: #### C HM7, HFP, MGO ####[facility] (DEFAULT)[address] [place] [address] Urea nitrogen [Mass/Vol] 16 mg/dL Normal 7-25 [facility] Comment on above: Performed By: #### C HM7, HFP, MGO ####[facility] (DEFAULT)[address] [place] [address] Urea nitrogen/Creatinine [Mass ratio] 13 mg/mg Normal [facility] Comment on above: Performed By: #### C HM7, HFP, MGO ####[facility] (DEFAULT)[address] [place] [place] [address] CMV PCR,FLUIDS,URINE,EYE ETC on 09-02-2023 CMV by PCR Result Negative Normal Negative [facility] Comment on above: Result Comment: ---- ADDITIONAL INFORMATION This test was developed and its performance characteristicsdetermined by [facility] in a manner consistent with CLIArequirements. This test has not been cleared or approved bythe U.S. Food and Drug Administration.Test Performed by:[address] [address]Ras Director: Rosendo Bose M.D. Ph.D.; CLIA# [id number] Performed By: #### Y CMV ####[facility] (DEFAULT)[address] [place] [address], [place] [address] CMV BY PCR SOURCE BAL RML Normal [facility] Comment on above: Performed By: #### Y CMV ####[facility] (DEFAULT)[address] [place] [address] CMV by PCR Result Negative Normal Negative [facility] Comment on above: Result Comment: ---- ADDITIONAL INFORMATION This test was developed and its performance characteristicsdetermined by [facility] in a manner consistent with CLIArequirements. This test has not been cleared or approved bythe U.S. Food and Drug Administration.Test Performed by:[address] [address]Aua Director: Rosendo Bose M.D. Ph.D.; CLIA# [id number] Performed By: #### Y CMV ####[facility] (DEFAULT)[address] [place] [address] CMV BY PCR SOURCE BAL LLL Normal [facility] Comment on above: Performed By: #### Y CMV ####[facility] (DEFAULT)[address] [place] [address] CYTOLOGY, NON-GYNon 09-02-20 CYTOLOGIC DIAGNOSIS Normal [facility] Comment on above: Result Comment: A. B RONCHOALVEOLAR LAVAGE, LEFT LOWER LOBE (CYTOLOGY):FINAL DIAGNOSIS:No Malignant Cells Are IdentifiedHypocellular Specimen Performed By: #### N ONJONH ####[facility] (DEFAULT)[address] [place] [address] Case Report Normal [facility] Comment on above: Result Comment: [facility] Cytology Report Case: [id number] Provider: Crow Diaz MD Collected: 09/02/2023 08:38 AMOrdering Location: 0 Received: 09/02/2023 10:44 AMPathologist: KENTON Caglepecimen: BRONCHOALVEOLAR LAVAGE, LLL BAL Performed By: #### N LITZY ####[facility] (DEFAULT)[address] [place] [address] Clinical History Renal transplant. Normal [facility] Comment on above: Performed By: #### N ONNILOFNA ####[facility] (DEFAULT)[address] [place] [address] Gross Description Normal [facility] Comment on above: Result Comment: LLL BAL1 ml hazy colorless fld unfixed1 TP slide Pap stainFor Immediate Release to Patient's MyChart? Yes Performed By: #### N ONGNNONFNA ####[facility] (DEFAULT)[address] [place] [address] FUNGUS CULTUREon 09-02-2023 Bacteria identified Cx Nom (Unsp spec) Normal [facility] Comment on above: Order Comment: Ident ification was performed on the MALDI-TOF mass spectrometer [employer]. This test was developed by [facility]. It has not been cleared or approved by the FDA. The laboratory is regulated under CLIA as qualified to perform high-complexity testing. This test is used for clinical purposes. It should not be regarded as investigational or for research. Result Comment: Grow [id number] [place] Histoplasma capsulatum Performed By: #### F UN ####[facility] (DEFAULT)[address] [place] [address] Bacteria identified Cx Nom (Unsp spec) NO GROWTH DAY 28 OF 28 Normal [facility] Comment on above: Order Comment: BAL f ungal culture Performed By: #### F UN ####[facility] (DEFAULT)[address] [place] [address] HEPATIC FUNCTION PANELon Albumin [Mass/Vol] 3.2 g/dL Low 3.5 - 5.0 g/dL [facility] ALP [Catalytic activity/Vol] 107 U/L 32 - 126 U/L [facility] ALT [Catalytic activity/Vol] 20 U/L 10 - 52 U/L [facility] AST [Catalytic activity/Vol] 31 U/L 10 - 39 U/L [facility] Bilirubin [Mass/Vol] 1.0 mg/dL NINF - 1.5 mg/dL [facility] Bilirubin.direct [Mass/Vol] 0.3 mg/dL High NINF - 0.3 mg/dL [facility] Protein [Mass/Vol] 6.6 g/dL 6.4 - 8.3 g/dL [facility] Albumin [Mass/Vol] 3.2 g/dL Low 3.5-5.0 [facility] Comment on above: Performed By: #### C HM7, HFP, MGO ####[facility] (DEFAULT)[address] [place] [address] ALP [Catalytic activity/Vol] 107 U/L Normal 32-126 [facility] Comment on above: Performed By: #### Chinedu HMJessica, HFP, MGO ####[facility] (DEFAULT)[address] [place] [address] ALT [Catalytic activity/Vol] 20 U/L Normal 10-52 [facility] Comment on above: Performed By: #### Chinedu HMJessica, HFP, MGO ####[facility] (DEFAULT)[address] [place] [address] AST [Catalytic activity/Vol] 31 U/L Normal 10-39 [facility] Comment on above: Performed By: #### Chinedu HM7, HFP, MGO ####[facility] (DEFAULT)[address] [place] [address] Bilirubin [Mass/Vol] 1.0 mg/dL Normal <1.5 [facility] Comment on above: Performed By: #### Chinedu HMJessica, HFP, MGO ####[facility] (DEFAULT)[address] [place] [address] Bilirubin.indirect [Mass/Vol] 0.3 mg/dL High <0.3 [facility] Comment on above: Performed By: #### Chinedu HM7, HFP, MGO ####[facility] (DEFAULT)[address] [place] [address] Protein [Mass/Vol] 6.6 g/dL Normal 6.4-8.3 [facility] Comment on above: Performed By: #### C HM7, HFP, MGO ####[facility] (DEFAULT)[address] [place] [address] HISTOPLASMA ANTIGEN, FLUIDon 09-02-2023 FH SOURCE BAL RML Normal [facility] Comment on above: Performed By: #### Y FHST ####[facility] (DEFAULT)[address] [place] [address] Histo FLD interpretation Negative Normal [facility] Comment on above: Result Comment: ---- ADDITIONAL INFORMATION Reference interval: None DetectedReportable Range: Positive Results reported in ng/mL from0.20 ng/mL to 20.00 ng/mLPositive Results above 20.00 ng/mL are reported as 'Abovethe Limit of Quantification'Cross-reactions occur with Blastomyces spp., Coccidioidesspp., and Paracoccidioides brasiliensis.This test was developed and its performance characteristicsdetermined by [facility]. It has not beencleared or approved by the FDA; however, FDA clearance orapproval is not currently required for clinical use. Theresults are not intended to be used as the sole means forclinical diagnosis or patient management decisions.Test Performed by:[facility] [place] [address] [place] [address] Performed By: #### Y FHST ####[facility] (DEFAULT)[address] [place] [address] Histoplasma Antigen, FLUID Not detected Normal [facility] Comment on above: Performed By: #### Y FHST ####[facility] (DEFAULT)[address] [place] [address] HISTOPLASMA ANTIGEN,URINEon 09-02-2023 H. capsulatum Ag (U) [Mass/Vol] Not detected ng/mL [facility] H. capsulatum Ag IA Ql (U) Not detected Not Detected [facility] HISTOPLASMA CAPSULATUM/BLAST OMYCES SPECIES,PCR FLUIDon 09-02-2023 HISTO/BLASTO RESULT Negative Normal Not Applicable [facility] Comment on above: Result Comment: A Ne gative result from BAL fluid does not rule out thepresence of Histoplasma capsulatum because the sensitivity from this source is suboptimal. ADDITIONAL INFORMATION This test was developed and its performance characteristicsdetermined by [facility] in a manner consistent with CLIArequirements. This test has not been cleared or approved bythe U.S. Food and Drug Administration.Test Performed by:[address] [id number] Director: Rosendo Bose M.D. Ph.D.; CLIA# [id number] Performed By: #### Y HBRP ####[facility] (DEFAULT)[address] [place] [address] Source BAL RML Normal [facility] Comment on above: Performed By: #### Y HBRP ####[facility] (DEFAULT)[address] [place] [address] HIV 1 AND 2 ANTIBODIES/P24 A NTIGENOrdered By: Wilma Luque on 09-02-2023 HIV 1+2 Ab+HIV1 p24 Ag IA Ql Non-Reactive Non Reactive [facility] Interpretation and review of laboratory results Normal [facility] HIV 1 AND 2 ANTIBODIES/P24 A NTIGENon 09-02-2023 HIV-1/HIV-2 Ab With p24 Antigen Non-Reactive Normal Non Reactive [facility] Comment on above: Performed By: #### L [id number] ####[facility] (DEFAULT)[address] [place] [address] LEGIONELLA CULTUREon 023 Bacteria identified Cx Nom (Unsp spec) NO GROWTH DAY 7 OF 7 Normal [facility] Comment on above: Performed By: #### L EGN ####[facility] (DEFAULT)[address] [place] [address] Bacteria identified Cx Nom (Unsp spec) NO GROWTH DAY 7 OF 7 Normal [facility] Comment on above: Order Comment: BAL l egionella culture Performed By: #### L EGN ####[facility] (DEFAULT)[address] [place] [address] LEGIONELLA PCRon 09-02-2023 Legionella species, Culture BAL RML Normal [facility] Comment on above: Performed By: #### Y LEGRP ####[facility] (DEFAULT)[address] [place] [address] Legionella, pcr result Negative Normal Not Applicable [facility] Comment on above: Result Comment: ---- ADDITIONAL INFORMATION This test was developed and its performance characteristicsdetermined by [facility] in a manner consistent with CLIArequirements. This test has not been cleared or approved bythe U.S. Food and Drug Administration.Test Performed by:[address] [address]Vvw Director: Rosendo Bose M.D. Ph.D.; CLIA# [id number] Performed By: #### Y LEGRP ####[facility] (DEFAULT)[address] [place] [address] LOWER RESPIRATORY CULTURE, B ACTERIALon 09-02-2023 Bacteria identified Cx Nom (Unsp spec) NO GROWTH DAY 2 OF 2 Normal [facility] Comment on above: Performed By: #### R ES ####[facility] (DEFAULT)[address] [place] [address] Microscopic observation Gram stain Nom (Unsp spec) Normal [facility] Comment on above: Result Comment: Cyto centrifuge preparationNeutrophils, RareRed Blood Cells PresentNo organisms seen Performed By: #### R ES ####[facility] (DEFAULT)[address] [place] [address] Bacteria identified Cx Nom (Unsp spec) NO GROWTH DAY 2 OF 2 Normal [facility] Comment on above: Order Comment: BAL b acterial respiratory culture Performed By: #### R ES ####[facility] (DEFAULT)[address] [place] [address] Microscopic observation Gram stain Nom (Unsp spec) Normal [facility] Comment on above: Order Comment: BAL b acterial respiratory culture Result Comment: Cyto centrifuge preparationNeutrophils, ModerateRed Blood Cells PresentNo organisms seen Performed By: #### R ES ####[facility] (DEFAULT)[address] [place] [address] MAGNESIUMon 09-02-2023 Interpretation and review of laboratory results Normal [facility] Magnesium [Mass/Vol] 1.7 mg/dL 1.6 - 2 .6 mg/dL [facility] Magnesium [Mass/Vol] 1.7 mg/dL Normal 1.6-2.6 [facility] Comment on above: Performed By: #### C HM7, HFP, MGO ####[facility] (DEFAULT)[address] [place] [address] No Panel Informationon 09-02 Interpretation and review of laboratory results Abnormal [facility] PNEUMOCYSTIS JIROVECI,PCRon 09-02-2023 PN Report Status DNR Normal [facility] Comment on above: Performed By: #### Y PNRP ####[facility] (DEFAULT)[address] [place] [address] PN Specimen Source BAL RML Normal [facility] Comment on above: Performed By: #### Y PNRP ####[facility] (DEFAULT)[address] [place] [address] Pneum jiroveci comment DNR Normal [facility] Comment on above: Performed By: #### Y PNRP ####[facility] (DEFAULT)[address] [place] [address] Pneumocystis jiroveci,PCR result Negative Normal Not Applicable [facility] Comment on above: Result Comment: ---- ADDITIONAL INFORMATION This test was developed and its performance characteristicsdetermined by [facility] in a manner consistent with CLIArActimoirements. This test has not been cleared or approved by[facility] U.S. Food and Drug Administration.Test Performed by:[address] Director: Rosendo Bose M.D. Ph.D.; CLIA# [id number] Performed By: #### Y PNRP ####[facility] (DEFAULT)[address] [place] [address] PN Report Status DNR Normal [facility] Comment on above: Performed By: #### Y PNRP ####[facility] (DEFAULT)[address] [place] [address] PN Specimen Source BAL LLL Normal [facility] Comment on above: Performed By: #### Y PNRP ####[facility] (DEFAULT)[address] [place] [address] Pneum jiroveci comment DNR Normal [facility] Comment on above: Performed By: #### Y PNRP ####[facility] (DEFAULT)[address] [place] [address] Pneumocystis jiroveci,PCR result Negative Normal Not Applicable [facility] Comment on above: Result Comment: ---- ADDITIONAL INFORMATION This test was developed and its performance characteristicsdetermined by [facility] in a manner consistent with CLIArequirements. This test has not been cleared or approved bythe U.S. Food and Drug Administration.Test Performed by:[address] [address]Upl Director: Rosendo Bose M.D. Ph.D.; CLIA# [id number] Performed By: #### Y PNRP ####[facility] (DEFAULT)[address] [place] [address] TACROLIMUS LEVEL, TROUGH (TX E DRUG LEVEL)on 09-02-2023 Interpretation and review of laboratory results Normal [facility] Tacrolimus (Bld) [Mass/Vol] 4.2 ng/mL [facility] Tacrolimus, Trough 4.2 ng/mL Normal [facility] ow Transplant: 4.0-12.0, Therapeutic: 5.0-15.0 [facility] Comment on above: Order Comment: Pleas e draw at specified interval PRIOR to dose. Do not hold dose to wait for level. Specimens batched twice per day, (M-F) and once per day weekendsMethod performed is a chemiluminescent microparticle immunoasssay on the [employer] i2000.The range is based on experience at [facility] and users should be aware that target concentrations vary widely depending on concomitant therapy, time post-transplant, and desired degree of immunosuppression. Performed By: #### T ACRO ####[facility] (DEFAULT)[address] [place] [address] CBC,PLATELETSon 09-01-2023 Erythrocyte distribution width (RBC) [Ratio] 13.4 % 10.9 - 14.3 % [facility] Hematocrit (Bld) [Volume fraction] 38.9 % Low 39.6 - 48.8 % [facility] Hemoglobin (Bld) [Mass/Vol] 12.7 g/dL Low 13.4 - 16.8 g/dL [facility] Interpretation and review of laboratory results Abnormal [facility] MCH (RBC) [Entitic mass] 27.6 pg 26.1 - 33.[address] [facility] MCHC (RBC) [Mass/Vol] 32.6 g/dL 31.9 - 36.5 g/dL [facility] MCV (RBC) [Entitic vol] 84.6 fL 79.0 - 94.[address] [facility] Platelet mean volume (Bld) [Entitic vol] 9.4 fL 8.7 - 12.[address] [facility] Platelets (Bld) [#/Vol] 209 10*3/uL 146 - 337 K/uL [facility] RBC (Bld) [#/Vol] 4.60 10*6/uL [facility] WBC (Bld) [#/Vol] 4.41 10*3/uL 3.73 - 10. 10 K/uL [facility] Hematocrit (Bld) [Volume fraction] 38.9 % Low 39.6-48.8 [facility] Comment on above: Performed By: #### [facility] ####[facility] (DEFAULT)[address] [place] [address] Hemoglobin (Bld) [Mass/Vol] 12.7 g/dL Low 13.4-16.8 [facility] Comment on above: Performed By: #### H EMO ####[facility] (DEFAULT)[address] [place] [address] MCV (RBC) [Entitic vol] 84.6 fL Normal 79.0-94.5 [facility] Comment on above: Performed By: #### H EMOGC ####[facility] (DEFAULT)[address] [place] [address] Mean Cell Hgb 27.6 pg Normal 26.1-33.3 [facility] Comment on above: Performed By: #### H EMOGC ####[facility] (DEFAULT)[address] [place] [address] Mean Cell Hgb Conc 32.6 g/dL Normal 31.9-36.5 [facility] Comment on above: Performed By: #### H EMOGC ####[facility] (DEFAULT)[address] [place] [address] Platelet mean volume (Bld) [Entitic vol] 9.4 fL Normal 8.7-12.3 [facility] Comment on above: Performed By: #### H EMO ####[facility] (DEFAULT)[address] [place] [address] Platelets (Bld) [#/Vol] 209 10*3/uL Normal 146-337 [facility] Comment on above: Performed By: #### H EMO ####[facility] (DEFAULT)[address] [place] [address] RBC (Bld) [#/Vol] 4.60 10*6/uL Normal 4.38-5.83 [facility] Comment on above: Performed By: #### [facility] ####[facility] (DEFAULT)[address] [place] [address] RBC Distribution 13.4 % Normal 10.9-14.3 [facility] Comment on above: Performed By: #### [facility] ####[facility] (DEFAULT)[address] [place] [address] WBC (Bld) [#/Vol] 4.41 10*3/uL Normal 3.73-10.10 [facility] Comment on above: Performed By: #### H EMO ####[facility] (DEFAULT)[address] [place] [address] CHEM 7 (LYTES,BUN,CREA,GLUC) on 09-01-2023 Anion gap [Moles/Vol] 14 mmol/L 7 - 17 mmol/L [facility] Chloride [Moles/Vol] 103 mmol/L 98 - 10 8 mmol/L [facility] CO2 [Moles/Vol] 21 mmol/L 21 - 31 mmol/L [facility] Creatinine [Mass/Vol] 1.16 mg/dL 0.70 - 1.30 mg/dL [facility] eGFR, CKD-EPI, Male 77 - PINF [facility] Glucose [Mass/Vol] 117 mg/dL High 70 - 99 mg/dL [facility] Osmolality Calc [Osmolality] [address] [facility] Potassium [Moles/Vol] 4.2 mmol/L 3.5 - 5.0 mmol/L [facility] Sodium [Moles/Vol] 134 mmol/L Low 135 - 145 mmol/L [facility] Urea nitrogen [Mass/Vol] 18 mg/dL 7 - 25 mg/dL [facility] Urea nitrogen/Creatinine [Mass ratio] 16 mg/mg [facility] Anion gap [Moles/Vol] 14 mmol/L Normal 7-17 [facility] Comment on above: Performed By: #### H FP MGO, CHM7 ####[facility] (DEFAULT)[address] [place] [address] Chloride [Moles/Vol] 103 mmol/L Normal 98-108 [facility] Comment on above: Performed By: #### H FP, MGO, CHM7 ####[facility] (DEFAULT)[address] [place] [address] CO2 [Moles/Vol] 21 mmol/L Normal 21-31 [facility] Comment on above: Performed By: #### H FP, MGO, CHM7 ####[facility] (DEFAULT)[address] [place] [address] Creatinine [Mass/Vol] 1.16 mg/dL Normal 0.70-1.30 [facility] Comment on above: Performed By: #### H FP, MGO, CHM7 ####[facility] (DEFAULT)[address] [place] [address] GFR/1.73 sq M.predicted among non-blacks MDRD (S/P/Bld) [Vol rate/Area] 76 mL/min/{1.73_m2} Normal >=60 [facility] Comment on above: Result Comment: Repo rted eGFR is based on the CKD-EPI 2020 equation using creatinine, age, and sex. Performed By: #### H DOMENICA MONCADA CHM7 ####[facility] (DEFAULT)[address] [place] [address] Glucose [Mass/Vol] 117 mg/dL High 70-99 [facility] Comment on above: Performed By: #### H ANTWAN MGO CHM7 ####[facility] (DEFAULT)[address] [place] [address] Osmolality [Osmolality] 285 mosm/kg Normal 278-305 [facility] Comment on above: Performed By: #### H ANTWAN MGO CHM7 ####[facility] (DEFAULT)[address] [place] [address] Potassium [Moles/Vol] 4.2 mmol/L Normal 3.5-5.0 [facility] Comment on above: Performed By: #### H ANTWAN MGO CHM7 ####[facility] (DEFAULT)[address] [place] [address] Sodium [Moles/Vol] 134 mmol/L Low 135-145 [facility] Comment on above: Performed By: #### H FP MGO, CHM7 ####[facility] (DEFAULT)[address] [place] [address] Urea nitrogen [Mass/Vol] 18 mg/dL Normal 7-25 [facility] Comment on above: Performed By: #### H FP MGO, CHM7 ####[facility] (DEFAULT)[address] [place] [address] Urea nitrogen/Creatinine [Mass ratio] 16 mg/mg Normal [facility] Comment on above: Performed By: #### H FP MGO, CHM7 ####[facility] (DEFAULT)[address] [place] [address] CRYPTOCOCCAL ANTIGENon 09-01 Cryptococcus sp Ag Ql (S) Negative Negative [facility] Interpretation and review of laboratory results Normal [facility] Cryptococcus Antigen,Serum Negative Normal Negative [facility] Comment on above: Performed By: #### C RAG ####[facility] (DEFAULT)[address] [place] [address] HEPATIC FUNCTION PANELon Albumin [Mass/Vol] 3.3 g/dL Low 3.5 - 5.0 g/dL [facility] ALP [Catalytic activity/Vol] 112 U/L 32 - 126 U/L [facility] ALT [Catalytic activity/Vol] 21 U/L 10 - 52 U/L [facility] AST [Catalytic activity/Vol] 29 U/L 10 - 39 U/L [facility] Bilirubin [Mass/Vol] 1.0 mg/dL NINF - 1.5 mg/dL [facility] Bilirubin.direct [Mass/Vol] 0.2 mg/dL NINF - 0.3 mg/dL [facility] Protein [Mass/Vol] 6.8 g/dL 6.4 - 8.3 g/dL [facility] Albumin [Mass/Vol] 3.3 g/dL Low 3.5-5.0 [facility] Comment on above: Performed By: #### H DOMENICA MONCADA CHM7 ####[facility] (DEFAULT)[address] [place] [address] ALP [Catalytic activity/Vol] 112 U/L Normal 32-126 [facility] Comment on above: Performed By: #### H DOMENICA MONCADA CHM7 ####[facility] (DEFAULT)[address] [place] [address] ALT [Catalytic activity/Vol] 21 U/L Normal 10-52 [facility] Comment on above: Performed By: #### H DOMENICA MONCADA CHM7 ####[facility] (DEFAULT)[address] [place] [address] AST [Catalytic activity/Vol] 29 U/L Normal 10-39 [facility] Comment on above: Performed By: #### H DOMENICA MONCADA CHM7 ####[facility] (DEFAULT)[address] [place] [address] Bilirubin [Mass/Vol] 1.0 mg/dL Normal <1.5 [facility] Comment on above: Performed By: #### H ANTWAN MGO, CHM7 ####[facility] (DEFAULT)[address] [place] [address] Bilirubin.indirect [Mass/Vol] 0.2 mg/dL Normal <0.3 [facility] Comment on above: Performed By: #### H ANTWAN MGRogelio, CHM7 ####[facility] (DEFAULT)[address] [place] [address] Protein [Mass/Vol] 6.8 g/dL Normal 6.4-8.3 [facility] Comment on above: Performed By: #### Lydia MONCADA MGRogelio CHM7 ####[facility] (DEFAULT)[address] [place] [address] L. pneumophila 1 Ag IA Ql (U )Ordered By: Carolin Miles on 09-01-2023 Interpretation and review of laboratory results Normal [facility] LEGIONELLA URINARY AGOrdered By: Carolin Miles on 09-01-2023 L. pneumophila 1 Ag IA Ql (U) Negative Negative [facility] MAGNESIUMon 09-01-2023 Interpretation and review of laboratory results Normal [facility] Magnesium [Mass/Vol] 1.6 mg/dL 1.6 - 2 .6 mg/dL [facility] Magnesium [Mass/Vol] 1.6 mg/dL Normal 1.6-2.6 [facility] Comment on above: Performed By: #### H ANTWAN MGO, CHM7 ####[facility] (DEFAULT)[address] [place] [address] No Panel Informationon 09-01 Interpretation and review of laboratory results Abnormal [facility] PARVOVIRUS (B19) DNA, PCR, B LOODon 09-01-2023 PARVOVIRUS B19 BY RAPID PCR Not detected Normal Not Detected [facility] Comment on above: Result Comment: The primers/probe used in this assay will detectparvovirus B19 and V9 (genotypes 1 # 3) but maynot detect parvovirus genotype 2. The majority ofcirculating Parvovirus B19 strains in the [facility] are genotype 1. Genotype 2 is not believed tocirculate widely in the [facility], but has beenassociated with similar clinical features as genotype1. Genotype 3 is most prevalent in some [facility] [place].This test was developed and its analyticalperformance characteristics have been determinedby [employer] [place], [place].It has not been cleared or approved by the FDA. Thisassay has been validated pursuant to the CLIAregulations and is used for clinical purposes.Test Performed at:[facility] [place] [address]BgtprokRamon Benavides M.D., Ph.D.,Director of Laboratories Performed By: #### Y PRVP ####[facility] (DEFAULT)[address] [address] [place] SPEC SOURCE Whole Blood Normal [facility] Comment on above: Performed By: #### Y PRVP ####[facility] (DEFAULT)[address] [address] ASPERGILLUS (GALACTOMANNAN), ANTIGENon 08-31-2023 Aspergillus Antigen <0.500 Normal <0.5 [facility] Comment on above: Result Comment: ---- ADDITIONAL INFORMATION This is a qualitative test and the resulted index value isnot indicative of disease severity. Serial testing isrecommended for patients at high risk for invasiveaspergillosis.This assay was performed using the FDA-cleared [employer] Aspergillus Galactomannan EIA.Test Performed by:[facility] [place][Note 2][address] [place], [place] [address]Pjg Director: Rosendo Bose M.D. Ph.D.; CLIA# [id number] Performed By: #### Y ASPR ####[facility] (DEFAULT)[address] [place] [address] CBC,PLATELETSon 08-31-2023 Erythrocyte distribution width (RBC) [Ratio] 13.3 % 10.9 - 14.3 % [facility] Hematocrit (Bld) [Volume fraction] 39.4 % Low 39.6 - 48.8 % [facility] Hemoglobin (Bld) [Mass/Vol] 12.8 g/dL Low 13.4 - 16.8 g/dL [facility] Interpretation and review of laboratory results Abnormal [facility] MCH (RBC) [Entitic mass] 27.6 pg 26.1 - 33.[address] [facility] MCHC (RBC) [Mass/Vol] 32.5 g/dL 31.9 - 36.5 g/dL [facility] MCV (RBC) [Entitic vol] 85.1 fL 79.0 - 94.[address] [facility] Platelet mean volume (Bld) [Entitic vol] 9.6 fL 8.7 - 12.[address] [facility] Platelets (Bld) [#/Vol] 228 10*3/uL 146 - 337 K/uL [facility] RBC (Bld) [#/Vol] 4.63 10*6/uL [facility] WBC (Bld) [#/Vol] 4.77 10*3/uL 3.73 - 10. 10 K/uL [facility] Hematocrit (Bld) [Volume fraction] 39.4 % Low 39.6-48.8 [facility] Comment on above: Performed By: #### [facility] ####[facility] (DEFAULT)[address] [place] [address] Hemoglobin (Bld) [Mass/Vol] 12.8 g/dL Low 13.4-16.8 [facility] Comment on above: Performed By: #### H EMOGC ####[facility] (DEFAULT)[address] [place] [address] MCV (RBC) [Entitic vol] 85.1 fL Normal 79.0-94.5 [facility] Comment on above: Performed By: #### H EMOGC ####[facility] (DEFAULT)[address] [place] [address] Mean Cell Hgb 27.6 pg Normal 26.1-33.3 [facility] Comment on above: Performed By: #### H EMOGC ####[facility] (DEFAULT)[address] [place] [address] Mean Cell Hgb Conc 32.5 g/dL Normal 31.9-36.5 [facility] Comment on above: Performed By: #### H EMOGC ####[facility] (DEFAULT)[address] [place] [address] Platelet mean volume (Bld) [Entitic vol] 9.6 fL Normal 8.7-12.3 [facility] Comment on above: Performed By: #### H EMOGC ####[facility] (DEFAULT)[address] [place] [address] Platelets (Bld) [#/Vol] 228 10*3/uL Normal 146-337 [facility] Comment on above: Performed By: #### H EMOGC ####[facility] (DEFAULT)[address] [place] [address] RBC (Bld) [#/Vol] 4.63 10*6/uL Normal 4.38-5.83 [facility] Comment on above: Performed By: #### H EMOGC ####[facility] (DEFAULT)[address] [place] [address] RBC Distribution 13.3 % Normal 10.9-14.3 [facility] Comment on above: Performed By: #### [facility] ####[facility] (DEFAULT)[address] [place] [address] WBC (Bld) [#/Vol] 4.77 10*3/uL Normal 3.73-10.10 [facility] Comment on above: Performed By: #### [facility] ####[facility] (DEFAULT)[address] [place] [address] CHEM 7 (LYTES,BUN,CREA,GLUC) on 08-31-2023 Anion gap [Moles/Vol] 13 mmol/L 7 - 17 mmol/L [facility] Chloride [Moles/Vol] 102 mmol/L 98 - 10 8 mmol/L [facility] CO2 [Moles/Vol] 23 mmol/L 21 - 31 [facility] Creatinine [Mass/Vol] 1.37 mg/dL High 0.70 - 1.30 mg/dL [facility] eGFR, CKD-EPI, Male 62 - PINF [facility] Glucose [Mass/Vol] 112 mg/dL High 70 - 99 mg/dL [facility] Osmolality Calc [Osmolality] [address] [facility] Potassium [Moles/Vol] 4.4 mmol/L 3.5 - 5.0 mmol/L [facility] Sodium [Moles/Vol] 134 mmol/L Low 135 - 145 mmol/L [facility] Urea nitrogen [Mass/Vol] 16 mg/dL 7 - 25 mg/dL [facility] Urea nitrogen/Creatinine [Mass ratio] 12 mg/mg [facility] Anion gap [Moles/Vol] 13 mmol/L Normal 7-17 [facility] Comment on above: Performed By: #### M GO, HFP, FERIB, PROCAL, CHM7 ####[facility] (DEFAULT)[address] [place] [address] Chloride [Moles/Vol] 102 mmol/L Normal 98-108 [facility] Comment on above: Performed By: #### M GO, HFP, FERIB, PROCAL, CHM7 ####[facility] (DEFAULT)[address] [place] [address] CO2 [Moles/Vol] 23 mmol/L Normal 21-31 [facility] Comment on above: Performed By: #### M GO, HFP, FERIB, PROCAL, CHM7 ####[facility] (DEFAULT)[address] [place] [address] Creatinine [Mass/Vol] 1.37 mg/dL High 0.70-1.30 [facility] Comment on above: Performed By: #### M GO, HFP, FERIB, PROCAL, CHM7 ####[facility] (DEFAULT)[address] [place] [address] GFR/1.73 sq M.predicted among non-blacks MDRD (S/P/Bld) [Vol rate/Area] 62 mL/min/{1.73_m2} Normal >=60 [facility] Comment on above: Result Comment: Repo rted eGFR is based on the CKD-EPI 2020 equation using creatinine, age, and sex. Performed By: #### M GO, HFP, FERIB, PROCAL, CHM7 ####[facility] (DEFAULT)[address] [place] [address] Glucose [Mass/Vol] 112 mg/dL High 70-99 [facility] Comment on above: Performed By: #### M GO, HFP, FERIB, PROCAL, CHM7 ####[facility] (DEFAULT)[address] [place], [place] [address] [address] Osmolality [Osmolality] 284 mosm/kg Normal 278-305 [facility] Comment on above: Performed By: #### M GO, HFP, FERIB, PROCAL, CHM7 ####[facility] (DEFAULT)[address] [place] [address] Potassium [Moles/Vol] 4.4 mmol/L Normal 3.5-5.0 [facility] Comment on above: Performed By: #### M GO, HFP, FERIB, PROCAL, CHM7 ####[facility] (DEFAULT)[address] [place] [address] Sodium [Moles/Vol] 134 mmol/L Low 135-145 [facility] Comment on above: Performed By: #### M GO, HFP, FERIB, PROCAL, CHM7 ####[facility] (DEFAULT)[address] [place] [address] Urea nitrogen [Mass/Vol] 16 mg/dL Normal 7-25 [facility] Comment on above: Performed By: #### M GO, HFP, FERIB, PROCAL, CHM7 ####[facility] (DEFAULT)[address] [facility] [place] [address] Urea nitrogen/Creatinine [Mass ratio] 12 mg/mg Normal [facility] Comment on above: Performed By: #### M GO, HFP, FERIB, PROCAL, CHM7 ####[facility] (DEFAULT)[address] [place] [address] CT ABDOMEN/PELVIS WITHOUT CO NTRASTon 08-31-2023 CT ABDOMEN/PELVIS WITHOUT CONTRAST Normal [facility] CT Abdomen and Pelvis WO con traston 08-31-[address] [facility] Radiology Study observation (narrative) [facility] CT Abdomen and Pelvis WO con trastOrdered By: Chavez Larkin on 08-31-[address] [facility] Work Phone: CT CHEST WITHOUT CONTRASTon 08-31-2023 CT CHEST WITHOUT CONTRAST Normal [facility] CT Chest WO contraston 08-[address] [facility] Radiology Study observation (narrative) [facility] CT Chest WO contrastOrdered By: Daisha Patterson on 08-31-[address] [facility] Work Phone: FERRITINon 08-31-2023 Ferritin [Mass/Vol] 409.0 ng/mL High 10.5 - 3 07.3 ng/mL [facility] Interpretation and review of laboratory results Abnormal [facility] Ferritin [Mass/Vol] 409.0 ng/mL High 10.5-307.3 [facility] Comment on above: Performed By: #### M GO, HFP, FERIB, PROCAL, CHM7 ####[facility] (DEFAULT)[address] [place] [address] HEPATIC FUNCTION PANELon Albumin [Mass/Vol] 3.3 g/dL Low 3.5 - 5.0 g/dL [facility] ALP [Catalytic activity/Vol] 113 U/L 32 - 126 U/L [facility] ALT [Catalytic activity/Vol] 25 U/L 10 - 52 U/L [facility] AST [Catalytic activity/Vol] 31 U/L 10 - 39 U/L [facility] Bilirubin [Mass/Vol] 1.1 mg/dL NINF - 1.5 mg/dL [facility] Bilirubin.direct [Mass/Vol] 0.3 mg/dL High NINF - 0.3 mg/dL [facility] Protein [Mass/Vol] 7.0 g/dL 6.4 - 8.3 g/dL [facility] Albumin [Mass/Vol] 3.3 g/dL Low 3.5-5.0 [facility] Comment on above: Performed By: #### M GO, HFP, FERIB, PROCAL, CHM7 ####[facility] (DEFAULT)[address] [place] [address] ALP [Catalytic activity/Vol] 113 U/L Normal 32-126 [facility] Comment on above: Performed By: #### M GO, HFP, FERIB, PROCAL, CHM7 ####[facility] (DEFAULT)[address] [place] [address] ALT [Catalytic activity/Vol] 25 U/L Normal 10-52 [facility] Comment on above: Performed By: #### M GO, HFP, FERIB, PROCAL, CHM7 ####[facility] (DEFAULT)[address] [place] [address] AST [Catalytic activity/Vol] 31 U/L Normal 10-39 [facility] Comment on above: Performed By: #### M GO, HFP, FERIB, PROCAL, CHM7 ####[facility] (DEFAULT)[address] [place] [address] Bilirubin [Mass/Vol] 1.1 mg/dL Normal <1.5 [facility] Comment on above: Performed By: #### M GO, HFP, FERIB, PROCAL, CHM7 ####[facility] (DEFAULT)[address] [place] [address] Bilirubin.indirect [Mass/Vol] 0.3 mg/dL High <0.3 [facility] Comment on above: Performed By: #### M GO, HFP, FERIB, PROCAL, CHM7 ####[facility] (DEFAULT)[address] [place] [address] Protein [Mass/Vol] 7.0 g/dL Normal 6.4-8.3 [facility] Comment on above: Performed By: #### M GO, HFP, FERIB, PROCAL, CHM7 ####[facility] (DEFAULT)[address] [place] [address] LEGIONELLA URINARY AGon Legionella Urinary Antigen Negative Normal Negative [facility] Comment on above: Performed By: #### L EGION ####[facility] (DEFAULT)[address] [place] [address] MAGNESIUMon 08-31-2023 Interpretation and review of laboratory results Normal [facility] Magnesium [Mass/Vol] 1.7 mg/dL 1.6 - 2 .6 mg/dL [facility] Magnesium [Mass/Vol] 1.7 mg/dL Normal 1.6-2.6 [facility] Comment on above: Performed By: #### M TAVO BLOOM, FERIB, PROCAL, CHM7 ####[facility] (DEFAULT)[address] [place] [address] No Panel Informationon 08-31 Interpretation and review of laboratory results Abnormal [facility] PROCALCITONINon 08-31-2023 Interpretation and review of laboratory results Normal [facility] Procalcitonin [Mass/Vol] 0.23 ng/mL NINF - 0.50 ng/mL [facility] Procalcitonin 0.23 ng/mL Normal <0.50 [facility] Comment on [...] and trend procalcitonin in various clinical settings. [email or web address]/[email or web address]/[email or web address]?[email or web address]=/[email or web address]/[email or web address]/Documents/[email or web address] [email or web address]&action=default&[email or web address] common cutoffs associated with bacterial infections are as follows.Respiratory tract infections: >0.25 ng/mLSepsis/septic shock: >0.5 ng/mLProcalcitonin should not be used alone as a diagnostic tool, however. All procalcitonin results should be interpreted in association with the patients clinical condition and all laboratory findings. Performed By: #### M MERLE, HFP, FERIB, PROCAL, CHM7 ####[facility] (DEFAULT)[address] [place] [address] TACROLIMUS LEVEL, TROUGH (TX E DRUG LEVEL)Ordered By: Yanira Marcum on 08-31-2023 Interpretation and review of laboratory results Normal [facility] Tacrolimus (Bld) [Mass/Vol] 5.9 ng/mL [facility] TACROLIMUS LEVEL, TROUGH (TX E DRUG LEVEL)on 08-31-2023 Tacrolimus, Trough 5.9 ng/mL Normal [facility] Susana ow Transplant: 4.0-12.0, Therapeutic: 5.0-15.0 [facility] Comment on above: Order Comment: Pleas e draw at specified interval PRIOR to dose. Do not hold dose to wait for level. Specimens batched twice per day, (M-F) and once per day weekendsMethod performed is a chemiluminescent microparticle immunoasssay on the [employer] i2000.The range is based on experience at [facility] and users should be aware that target concentrations vary widely depending on concomitant therapy, time post-transplant, and desired degree of immunosuppression. Performed By: #### T ACRO ####[facility] (DEFAULT)[address] [place] [address] URINE CULTUREOrdered By: Jorge Lozano on 08-31-2023 Bacteria identified Cx Nom (Unsp spec) No Growth [facility] DARYL AURIS SCREEN BY PCRO rdered By: Mynor Alejandro on 08-30-2023 Daryl auris Screen by PCR Not detected Not Detected [facility] Interpretation and review of laboratory results Normal [facility] CBC,PLATELETSon 08-30-2023 Erythrocyte distribution width (RBC) [Ratio] 13.3 % 10.9 - 14.3 % [facility] Hematocrit (Bld) [Volume fraction] 41.3 % 39.6 - 48.8 % [facility] Hemoglobin (Bld) [Mass/Vol] 13.2 g/dL Low 13.4 - 16.8 g/dL [facility] Interpretation and review of laboratory results Abnormal [facility] MCH (RBC) [Entitic mass] 27.3 pg 26.1 - 33.[address] [facility] MCHC (RBC) [Mass/Vol] 32.0 g/dL 31.9 - 36.5 g/dL [facility] MCV (RBC) [Entitic vol] 85.5 fL 79.0 - 94.[address] [facility] Platelet mean volume (Bld) [Entitic vol] 9.2 fL 8.7 - 12.[address] [facility] Platelets (Bld) [#/Vol] 235 10*3/uL 146 - 337 K/uL [facility] RBC (Bld) [#/Vol] 4.83 10*6/uL [facility] WBC (Bld) [#/Vol] 4.96 10*3/uL 3.73 - 10. 10 K/uL [facility] Hematocrit (Bld) [Volume fraction] 41.3 % Normal 39.6-48.8 [facility] Comment on above: Performed By: #### [facility] ####[facility] (DEFAULT)[address] [place] [address] Hemoglobin (Bld) [Mass/Vol] 13.2 g/dL Low 13.4-16.8 [facility] Comment on above: Performed By: #### H EMO ####[facility] (DEFAULT)[address] [place] [address] MCV (RBC) [Entitic vol] 85.5 fL Normal 79.0-94.5 [facility] Comment on above: Performed By: #### H EMO ####[facility] (DEFAULT)[address] [place] [address] Mean Cell Hgb 27.3 pg Normal 26.1-33.3 [facility] Comment on above: Performed By: #### H EMO ####[facility] (DEFAULT)[address] [place] [address] Mean Cell Hgb Conc 32.0 g/dL Normal 31.9-36.5 [facility] Comment on above: Performed By: #### H EMO ####[facility] (DEFAULT)[address] [place] [address] Platelet mean volume (Bld) [Entitic vol] 9.2 fL Normal 8.7-12.3 [facility] Comment on above: Performed By: #### H EMO ####[facility] (DEFAULT)[address] [place] [address], [place] [address] Platelets (Bld) [#/Vol] 235 10*3/uL Normal 146-337 [facility] Comment on above: Performed By: #### H EMO ####[facility] (DEFAULT)[address] [place] [address] RBC (Bld) [#/Vol] 4.83 10*6/uL Normal 4.38-5.83 [facility] Comment on above: Performed By: #### H EMO ####[facility] (DEFAULT)[address] [place] [address] RBC Distribution 13.3 % Normal 10.9-14.3 [facility] Comment on above: Performed By: #### H EMO ####[facility] (DEFAULT)[address] [place] [address] WBC (Bld) [#/Vol] 4.96 10*3/uL Normal 3.73-10.10 [facility] Comment on above: Performed By: #### H EMO ####[facility] (DEFAULT)[address] [place] [address] CHEM 7 (LYTES,BUN,CREA,GLUC) on 08-30-2023 Anion gap [Moles/Vol] 14 mmol/L 7 - 17 mmol/L [facility] Chloride [Moles/Vol] 102 mmol/L 98 - 10 8 mmol/L [facility] CO2 [Moles/Vol] 20 mmol/L Low 21 - 31 mmol/L [facility] Creatinine [Mass/Vol] 1.56 mg/dL High 0.70 - 1.30 mg/dL [facility] eGFR, CKD-EPI, Male 54 Low - PINF [facility] Glucose [Mass/Vol] 123 mg/dL High 70 - 99 mg/dL [facility] Osmolality Calc [Osmolality] 281 [facility] Potassium [Moles/Vol] 4.3 mmol/L 3.5 - 5.0 mmol/L [facility] Sodium [Moles/Vol] 132 mmol/L Low 135 - 145 mmol/L [facility] [facility] Urea nitrogen [Mass/Vol] 16 mg/dL 7 - 25 mg/dL [facility] Urea nitrogen/Creatinine [Mass ratio] 10 mg/mg [facility] Anion gap [Moles/Vol] 14 mmol/L Normal 7-17 [facility] Comment on above: Performed By: #### NATHANIEL RAMÍREZ, HFP ####[facility] (DEFAULT)[address] [place] [address] Chloride [Moles/Vol] 102 mmol/L Normal 98-108 [facility] Comment on above: Performed By: #### NATHANIEL RAMÍREZ, HFP ####[facility] (DEFAULT)[address] [place] [address] CO2 [Moles/Vol] 20 mmol/L Low 21-31 [facility] Comment on above: Performed By: #### NATHANIEL RAMÍREZ, HFP ####[facility] (DEFAULT)[address] [place] [address] Creatinine [Mass/Vol] 1.56 mg/dL High 0.70-1.30 [facility] Comment on above: Performed By: #### NATHANIEL RAMÍREZ, HFP ####[facility] (DEFAULT)[address] [place] [address] GFR/1.73 sq M.predicted among non-blacks MDRD (S/P/Bld) [Vol rate/Area] 53 mL/min/{1.73_m2} Low >=60 [facility] Comment on above: Result Comment: Repo rted eGFR is based on the CKD-EPI 2020 equation using creatinine, age, and sex. Performed By: #### NATHANIEL RAMÍREZ, HFP ####[facility] (DEFAULT)[address] [place] [address] Glucose [Mass/Vol] 123 mg/dL High 70-99 [facility] Comment on above: Performed By: #### NATHANIEL RAMÍREZ, HFP ####[facility] (DEFAULT)[address] [place] [address] Osmolality [Osmolality] 281 mosm/kg Normal 278-305 [facility] Comment on above: Performed By: #### NATHANIEL RAMÍREZ, HFP ####[facility] (DEFAULT)[address] [place] [address] Potassium [Moles/Vol] 4.3 mmol/L Normal 3.5-5.0 [facility] Comment on above: Performed By: #### NATHANIEL RAMÍREZ, HFP ####[facility] (DEFAULT)[address] [place] [address] Sodium [Moles/Vol] 132 mmol/L Low 135-145 [facility] Comment on above: Performed By: #### NATHANIEL RAMÍREZ, HFP ####[facility] (DEFAULT)[address] [place] [address] Urea nitrogen [Mass/Vol] 16 mg/dL Normal 7-25 [facility] Comment on above: Performed By: #### NATHANIEL RAMÍREZ, HFP ####[facility] (DEFAULT)[address] [place] [address] Urea nitrogen/Creatinine [Mass ratio] 10 mg/mg Normal [facility] Comment on above: Performed By: #### NATHANIEL RAMÍREZ, HFP ####[facility] (DEFAULT)[address] [place] [place] [address] EXTRA MICROon 08-30-[address] [facility] HEPATIC FUNCTION PANELon Albumin [Mass/Vol] 3.7 g/dL 3.5 - 5.0 g/dL [facility] ALP [Catalytic activity/Vol] 115 U/L 32 - 126 U/L [facility] ALT [Catalytic activity/Vol] 22 U/L 10 - 52 U/L [facility] AST [Catalytic activity/Vol] 34 U/L 10 - 39 U/L [facility] Bilirubin [Mass/Vol] 1.2 mg/dL [facility]5 mg/dL [facility] Bilirubin.direct [Mass/Vol] 0.3 mg/dL High NINF - 0.3 mg/dL [facility] Protein [Mass/Vol] 7.7 g/dL 6.4 - 8.3 g/dL [facility] Albumin [Mass/Vol] 3.7 g/dL Normal 3.5-5.0 [facility] Comment on above: Performed By: #### Rod BLOOM CHM7, HFP ####[facility] (DEFAULT)[address] [place] [address] ALP [Catalytic activity/Vol] 115 U/L Normal 32-126 [facility] Comment on above: Performed By: #### Rod BLOOM CHM7, HFP ####[facility] (DEFAULT)[address] [place] [address] ALT [Catalytic activity/Vol] 22 U/L Normal 10-52 [facility] Comment on above: Performed By: #### Rod BLOOM CHM7, HFP ####[facility] (DEFAULT)[address] [place] [address] AST [Catalytic activity/Vol] 34 U/L Normal 10-39 [facility] Comment on above: Performed By: #### M MERLE CHM7, HFP ####[facility] (DEFAULT)[address] [place] [address] Bilirubin [Mass/Vol] 1.2 mg/dL Normal <1.5 [facility] Comment on above: Performed By: #### NATHANIEL RAMÍREZ, HFP ####[facility] (DEFAULT)[address] [place] [address] Bilirubin.indirect [Mass/Vol] 0.3 mg/dL High <0.3 [facility] Comment on above: Performed By: #### NATHANIEL RAMÍREZ, HFP ####[facility] (DEFAULT)[address] [place] [address] Protein [Mass/Vol] 7.7 g/dL Normal 6.4-8.3 [facility] Comment on above: Performed By: #### NATHANIEL RAMÍREZ, HFP ####[facility] (DEFAULT)[address] [place] [address] MAGNESIUMon 08-30-2023 Interpretation and review of laboratory results Normal [facility] Magnesium [Mass/Vol] 1.8 mg/dL 1.6 - 2 .6 mg/dL [facility] Magnesium [Mass/Vol] 1.8 mg/dL Normal 1.6-2.6 [facility] Comment on above: Performed By: #### NATHANIEL RAMÍREZ, HFP ####[facility] (DEFAULT)[address] [place] [address] No Panel Informationon 08-30 Interpretation and review of laboratory results Abnormal [facility] CBC,PLATELETSon 08-29-2023 Erythrocyte distribution width (RBC) [Ratio] 13.4 % 10.9 - 14.3 % [facility] Hematocrit (Bld) [Volume fraction] 37.6 % Low 39.6 - 48.8 % [facility] Hemoglobin (Bld) [Mass/Vol] 12.2 g/dL Low 13.4 - 16.8 g/dL [facility] Interpretation and review of laboratory results Abnormal [facility] MCH (RBC) [Entitic mass] 27.6 pg 26.1 - 33.[address] [facility] MCHC (RBC) [Mass/Vol] 32.4 g/dL 31.9 - 36.5 g/dL [facility] MCV (RBC) [Entitic vol] 85.1 fL 79.0 - 94.[address] [facility] Platelet mean volume (Bld) [Entitic vol] 9.4 fL 8.7 - 12.[address] [facility] Platelets (Bld) [#/Vol] 233 10*3/uL 146 - 337 K/uL [facility] RBC (Bld) [#/Vol] 4.42 10*6/uL [facility] WBC (Bld) [#/Vol] 4.92 10*3/uL 3.73 - 10. 10 K/uL [facility] Hematocrit (Bld) [Volume fraction] 37.6 % Low 39.6-48.8 [facility] Comment on above: Performed By: #### [facility] ####[facility] (DEFAULT)[address] [place] [address] Hemoglobin (Bld) [Mass/Vol] 12.2 g/dL Low 13.4-16.8 [facility] Comment on above: Performed By: #### H EMO ####[facility] (DEFAULT)[address] [place] [address] MCV (RBC) [Entitic vol] 85.1 fL Normal 79.0-94.5 [facility] Comment on above: Performed By: #### H EMOGC ####[facility] (DEFAULT)[address] [place] [address] Mean Cell Hgb 27.6 pg Normal 26.1-33.3 [facility] Comment on above: Performed By: #### H EMOGC ####[facility] (DEFAULT)[address] [place] [address] Mean Cell Hgb Conc 32.4 g/dL Normal 31.9-36.5 [facility] Comment on above: Performed By: #### H EMO ####[facility] (DEFAULT)[address] [place] [address] Platelet mean volume (Bld) [Entitic vol] 9.4 fL Normal 8.7-12.3 [facility] Comment on above: Performed By: #### H EMO ####[facility] (DEFAULT)[address] [place] [address] Platelets (Bld) [#/Vol] 233 10*3/uL Normal 146-337 [facility] Comment on above: Performed By: #### H EMOGC ####[facility] (DEFAULT)[address] [place] [address] RBC (Bld) [#/Vol] 4.42 10*6/uL Normal 4.38-5.83 [facility] Comment on above: Performed By: #### H EMO ####[facility] (DEFAULT)[address] [place] [address] RBC Distribution 13.4 % Normal 10.9-14.3 [facility] Comment on above: Performed By: #### H EMOGC ####[facility] (DEFAULT)[address] [place] [address] WBC (Bld) [#/Vol] 4.92 10*3/uL Normal 3.73-10.10 [facility] Comment on above: Performed By: #### H EMOGC ####[facility] (DEFAULT)[address] [place] [address] CHEM 7 (LYTES,BUN,CREA,GLUC) on 08-29-2023 Anion gap [Moles/Vol] 13 mmol/L 7 - 17 mmol/L [facility] Chloride [Moles/Vol] 105 mmol/L 98 - 10 8 mmol/L [facility] CO2 [Moles/Vol] 20 mmol/L Low 21 - 31 mmol/L [facility] Creatinine [Mass/Vol] 1.55 mg/dL High 0.70 - 1.30 mg/dL [facility] eGFR, CKD-EPI, Male 55 Low - PINF [facility] Glucose [Mass/Vol] 108 mg/dL High 70 - 99 mg/dL [facility] Osmolality Calc [Osmolality] [facility] Potassium [Moles/Vol] 4.5 mmol/L 3.5 - 5.0 mmol/L [facility] Sodium [Moles/Vol] 133 mmol/L Low 135 - 145 mmol/L [facility] Urea nitrogen [Mass/Vol] 19 mg/dL 7 - 25 mg/dL [facility] Urea nitrogen/Creatinine [Mass ratio] 12 mg/mg [facility] Anion gap [Moles/Vol] 13 mmol/L Normal 7-17 [facility] Comment on above: Performed By: #### Rod GO, CHM7, HFP, GGTB ####[facility] (DEFAULT)[address] [place] [address] Chloride [Moles/Vol] 105 mmol/L Normal 98-108 [facility] Comment on above: Performed By: #### Rod GO, CHM7, HFP, GGTB ####[facility] (DEFAULT)[address] [place] [address] CO2 [Moles/Vol] 20 mmol/L Low 21-31 [facility] Comment on above: Performed By: #### M GO, CHM7, HFP, GGTB ####[facility] (DEFAULT)[address] [place] [address] Creatinine [Mass/Vol] 1.55 mg/dL High 0.70-1.30 [facility] Comment on above: Performed By: #### M GO, CHM7, HFP, GGTB ####[facility] (DEFAULT)[address] [place] [address] GFR/1.73 sq M.predicted among non-blacks MDRD (S/P/Bld) [Vol rate/Area] 54 mL/min/{1.73_m2} Low >=60 [facility] Comment on above: Result Comment: Repo rted eGFR is based on the CKD-EPI 2020 equation using creatinine, age, and sex. Performed By: #### M GO, CHM7, HFP, GGTB ####[facility] (DEFAULT)[address] [place] [address] Glucose [Mass/Vol] 108 mg/dL High 70-99 [facility] Comment on above: Performed By: #### Rod BLOOM, CHM7, HFP, GGTB ####[facility] (DEFAULT)[address] [place] [address] Osmolality [Osmolality] 283 mosm/kg Normal 278-305 [facility] Comment on above: Performed By: #### Rod GO, CHM7, HFP, GGTB ####[facility] (DEFAULT)[address] [place] [address] Potassium [Moles/Vol] 4.5 mmol/L Normal 3.5-5.0 [facility] Comment on above: Performed By: #### M GO, CHM7, HFP, GGTB ####[facility] (DEFAULT)[address] [place] [address] Sodium [Moles/Vol] 133 mmol/L Low 135-145 [facility] Comment on above: Performed By: #### M GO, CHM7, HFP, GGTB ####[facility] (DEFAULT)[address] [place] [address] Urea nitrogen [Mass/Vol] 19 mg/dL Normal 7-25 [facility] Comment on above: Performed By: #### M GO, CHM7, HFP, GGTB ####[facility] (DEFAULT)[address] [place] [address] Urea nitrogen/Creatinine [Mass ratio] 12 mg/mg Normal [facility] Comment on above: Performed By: #### M GO, CHM7, HFP, GGTB ####[facility] (DEFAULT)[address] [place] [address] GGTon 08-29-2023 Gamma glutamyl transferase [Catalytic activity/Vol] 64 U/L 8 - 64 U/L [facility] Interpretation and review of laboratory results Normal [facility] Gamma glutamyl transferase [Catalytic activity/Vol] 64 U/L Normal 8-64 [facility] Comment on above: Performed By: #### M GO, CHM7, HFP, GGTB ####[facility] (DEFAULT)[address] [place] [address] HEPATIC FUNCTION PANELon Albumin [Mass/Vol] 3.3 g/dL Low 3.5 - 5.0 g/dL [facility] ALP [Catalytic activity/Vol] 103 U/L 32 - 126 U/L [facility] ALT [Catalytic activity/Vol] 18 U/L 10 - 52 U/L [facility] AST [Catalytic activity/Vol] 27 U/L 10 - 39 U/L [facility] Bilirubin [Mass/Vol] 1.1 mg/dL [facility] 1.5 mg/dL [facility] Bilirubin.direct [Mass/Vol] 0.3 mg/dL High NINF - 0.3 mg/dL [facility] Protein [Mass/Vol] 6.8 g/dL 6.4 - 8.3 g/dL [facility] Albumin [Mass/Vol] 3.3 g/dL Low 3.5-5.0 [facility] Comment on above: Performed By: #### M GO, CHM7, HFP, GGTB ####[facility] (DEFAULT)[address] [place] [address] ALP [Catalytic activity/Vol] 103 U/L Normal 32-126 [facility] Comment on above: Performed By: #### M GO, CHM7, HFP, GGTB ####[facility] (DEFAULT)[address] [place] [address] ALT [Catalytic activity/Vol] 18 U/L Normal 10-52 [facility] Comment on above: Performed By: #### M GO, CHM7, HFP, GGTB ####[facility] (DEFAULT)[address] [place] [address] AST [Catalytic activity/Vol] 27 U/L Normal 10-39 [facility] Comment on above: Performed By: #### M GO, CHM7, HFP, GGTB ####[facility] (DEFAULT)[address] [place] [address] Bilirubin [Mass/Vol] 1.1 mg/dL Normal <1.5 [facility] Comment on above: Performed By: #### M GO, CHM7, HFP, GGTB ####[facility] (DEFAULT)[address] [place] [address] Bilirubin.indirect [Mass/Vol] 0.3 mg/dL High <0.3 [facility] Comment on above: Performed By: #### M GO, CHM7, HFP, GGTB ####[facility] (DEFAULT)[address] [place] [address] Protein [Mass/Vol] 6.8 g/dL Normal 6.4-8.3 [facility] Comment on above: Performed By: #### M GO, CHM7, HFP, GGTB ####[facility] (DEFAULT)[address] [place] [address] HISTOPLASMA AND BLASTOMYCES ANTIGEN, ENZYME IMMUNOASSAY, SERMon 08-29-2023 Histoplasma/Blastomy antonia Ag Result Detected Invalid Interpretation Code Not Detected [facility] Comment on above: Result Comment: Anti gen from Histoplasma or Blastomyces (unable todifferentiate) detected. Result should be correlated withclinical presentation, exposure history, and otherdiagnostic procedures, including culture, serology,histopathology, and/or radiographic findings, to aid in thedifferentiation between histoplasmosis and blastomycosis.CRITICAL RESULT Performed By: #### H IBAG ####[facility] (DEFAULT)[address] [place] [address] Histoplasma/Blastomy antonia Ag Value 5.3 ng/mL Normal [facility] Comment on above: Result Comment: ---- ADDITIONAL INFORMATION This test was developed and its performance characteristicsdetermined by [facility] in a manner consistent with CLIArequirements. This test has not been cleared or approved bythe U.S. Food and Drug Administration.Test Performed by:[place] [id number] Director: Rosendo Bose M.D. Ph.D.; CLIA# [id number] Performed By: #### H IBAG ####[facility] (DEFAULT)[address] [place] [address], [place] [address] HISTOPLASMA ANTIGEN,URINEon 08-29-2023 HISTOPLASM AG, URINE Not detected Normal Not Detected [facility] Comment on above: Result Comment: No H istoplasma antigen detected.False negative results may occur. Repeat testing on anew specimen should be considered if clinically indicated. Performed By: #### Y HISTG ####[facility] (DEFAULT)[address] [place], [place] [address], [place] [address] Histoplasma Ag Value Not detected Normal [facility] Comment on above: Result Comment: ---- ADDITIONAL INFORMATION This test has been modified from the geometry teacher'sinstructions. Its performance characteristics weredetermined by [facility] in a manner consistent withCLIA requirements. This test has not been cleared orapproved by the U.S. Food and Drug Administration.Test Performed by:[address] [address] Director: Rosendo Bose M.D. Ph.D.; CLIA# [id number] Performed By: #### Y HISTG ####[facility] (DEFAULT)[address] [place] [address] MAGNESIUMon 08-29-2023 Interpretation and review of laboratory results Normal [facility] Magnesium [Mass/Vol] 1.7 mg/dL 1.6 - 2 .6 mg/dL [facility] Magnesium [Mass/Vol] 1.7 mg/dL Normal 1.6-2.6 [facility] Comment on above: Performed By: #### M GO, CHM7, HFP, GGTB ####[facility] (DEFAULT)[address] [place] [address] No Panel Informationon 08-29 Interpretation and review of laboratory results Abnormal [facility] PT,INR,PTTon 08-29-2023 aPTT Coag (PPP) [Time] 29.[address] [facility] INR Coag (Bld) [Relative time] 1.1 {INR} 0.9 - 1.[address] [facility] Interpretation and review of laboratory results Normal [facility] PT Coag (PPP) [Time] 13.8 s [facility] aPTT Coag (Bld) [Time] 29.3 s Normal 24.0-34.3 [facility] Comment on above: Performed By: #### P TPTT ####[facility] (DEFAULT)[address] [place] [address] INR Coag (PPP) [Relative time] 1.1 {INR} Normal 0.9-1.1 [facility] Comment on above: Performed By: #### P TPTT ####[facility] (DEFAULT)[address] [place] [address] PT Coag (PPP) [Time] 13.8 s Normal 11.9-14.2 [facility] Comment on above: Performed By: #### P TPTT ####[facility] (DEFAULT)[address] [place] [address] Portable XR Chest Viewson RADIOLOGY RADIOLOGY [facility] Portable XR Chest ViewsOrder ed By: Gerald Baer on 08-29-[address] [facility] Work Phone: TACROLIMUS LEVEL, TROUGH ([place] E DRUG LEVEL)on 08-29-2023 Interpretation and review of laboratory results Normal [facility] Tacrolimus (Bld) [Mass/Vol] 8.9 ng/mL [facility] Tacrolimus, Trough 8.9 ng/mL Normal [facility]ana ow Transplant: 4.0-12.0, Therapeutic: 5.0-15.0 [facility] Comment on above: Order Comment: Pleas e draw at specified interval PRIOR to dose. Do not hold dose to wait for level. Specimens batched twice per day, (M-F) and once per day weekendsMethod performed is a chemiluminescent microparticle immunoasssay on the [employer] i2000.The range is based on experience at [facility] and users should be aware that target concentrations vary widely depending on concomitant therapy, time post-transplant, and desired degree of immunosuppression. Performed By: #### T ACRO ####[facility] (DEFAULT)[address] [place] [address] Tacrolimus, Trough 8.7 ng/mL Normal [facility] Transplant: 4.0-12.0, Therapeutic: 5.0-15.0 [facility] Comment on above: Order Comment: Pleas e draw at specified interval PRIOR to dose. Do not hold dose to wait for level. Specimens batched twice per day, (M-F) and once per day weekendsMethod performed is a chemiluminescent microparticle immunoasssay on the [employer] i2000.The range is based on experience at [facility] and users should be aware that target concentrations vary widely depending on concomitant therapy, time post-transplant, and desired degree of immunosuppression. Performed By: #### T ACRO ####[facility] (DEFAULT)[address] [place] [address] TACROLIMUS LEVEL, TROUGH ([place] E DRUG LEVEL)Ordered By: Roxanne Louie on 08-29-2023 Interpretation and review of laboratory results Normal [facility] Tacrolimus (Bld) [Mass/Vol] 8.7 ng/mL [facility] URINALYSIS REFLEX TO CULTURE PERFORMABLEOrdered By: Shaji Kelly on 08-29-2023 Appearance (U) Clear Clear [facility] Bacteria LM Ql (Urine sed) ABSENT ABSENT [facility] Calcium Oxalate Crystals PRESENT [facility] Color (U) Yellow Yellow [facility] Epithelial cells.squamous LM Ql (Urine sed) 0-2/hpf 0-2/hpf, 3-5/hpf = 1+ [facility] Glucose Test strip (U) [Mass/Vol] Negative Negative [facility] Interpretation and review of laboratory results Abnormal [facility] Ketones (U) [Mass/Vol] Negative Negative [facility] Leukocyte esterase Test strip Ql (U) Negative Negative [facility] Nitrite Ql (U) Negative Negative [facility] pH (U) 6.0 [pH] 5.0 - 7.[address] [facility] Protein (U) [Mass/Vol] Negative Negative [facility] RBC (U) [#/Vol] Trace Abnormal Negative [facility] RBC LM.HPF (Urine sed) [#/Area] 3-[address] [facility] Specific gravity (U) [Rel density] 1.015 1.001 - 1.[address] [facility] Urobilinogen (U) [Mass/Vol] 1.0 E.U./dL 0.2 E.U/dL, 1.0 E.U/dL [facility] WBC LM.HPF (Urine sed) [#/Area] 0 - 5 [facility] URINALYSIS REFLEX TO CULTURE PERFORMABLEon 08-29-2023 Appearance (U) Clear Normal Clear [facility] Comment on above: Order Comment: For i ndwelling catheters, specimen collection is acceptable on catheter day 1 and 2 only. ? Performed By: #### U [id number] ####[facility] (DEFAULT)[address] [place] [address] Bacteria ABSENT Normal ABSENT [facility] Comment on above: Order Comment: For i ndwelling catheters, specimen collection is acceptable on catheter day 1 and 2 only. ? Performed By: #### U [id number] ####[facility] (DEFAULT)[address] [place] [address] Blood Urine Trace Abnormal Negative [facility] Comment on above: Order Comment: For i ndwelling catheters, specimen collection is acceptable on catheter day 1 and 2 only. ? Performed By: #### U [id number] ####[facility] (DEFAULT)[address] [place] [address] Calcium Oxalate Crystals PRESENT Normal [facility] Comment on above: Order Comment: For i ndwelling catheters, specimen collection is acceptable on catheter day 1 and 2 only. ? Performed By: #### U [id number] ####[facility] (DEFAULT)[address] [place] [address] Color (U) Yellow Normal Yellow [facility] Comment on above: Order Comment: For i ndwelling catheters, specimen collection is acceptable on catheter day 1 and 2 only. ? Performed By: #### U [id number] ####[facility] (DEFAULT)[address] [place] [address] Glucose Ql (U) Negative Normal Negative [facility] Comment on above: Order Comment: For i ndwelling catheters, specimen collection is acceptable on catheter day 1 and 2 only. ? Performed By: #### U [id number] ####[facility] (DEFAULT)[address] [place] [address] Ketones Ql (U) Negative Normal [facility] [facility] Comment on above: Order Comment: For i ndwelling catheters, specimen collection is acceptable on catheter day 1 and 2 only. ? Performed By: #### U [id number] ####[facility] (DEFAULT)[address] [place] [address] Leukocyte esterase Test strip Ql (U) Negative Normal Negative [facility] Comment on above: Order Comment: For i ndwelling catheters, specimen collection is acceptable on catheter day 1 and 2 only. ? Performed By: #### U [id number] ####[facility] (DEFAULT)[address] [place], [place] [address], [place] [address] Nitrites Urine Negative Normal Negative [facility] Comment on above: Order Comment: For i ndwelling catheters, specimen collection is acceptable on catheter day 1 and 2 only. ? Performed By: #### U [id number] ####[facility] (DEFAULT)[address] [place], [place] [address], [place] [address] pH (U) 6.0 [pH] Normal 5.0-7.0 [facility] Comment on above: Order Comment: For i ndwelling catheters, specimen collection is acceptable on catheter day 1 and 2 only. ? Performed By: #### U [id number] ####[facility] (DEFAULT)[address] [place], [place] [address], [place] [address] Protein Urine Negative Normal Negative [facility] Comment on above: Order Comment: For i ndwelling catheters, specimen collection is acceptable on catheter day 1 and 2 only. ? Performed By: #### U [id number] ####[facility] (DEFAULT)[address] [place] [address], [place] [address] RBC Urine 3-5 Abnormal 0-2 [facility] Comment on above: Order Comment: For i ndwelling catheters, specimen collection is acceptable on catheter day 1 and 2 only. ? Performed By: #### U [id number] ####[facility] (DEFAULT)[address] [place], [place] [address], [place] [address] Specific Bent Urine 1.015 Normal 1.001-1.035 [facility] Comment on above: Order Comment: For i ndwelling catheters, specimen collection is acceptable on catheter day 1 and 2 only. ? Performed By: #### U [id number] ####[facility] (DEFAULT)[address] [place] [address] Squamous/Epithelial Cells 0-2/hpf Normal 0-2/hpf, 3-5/hpf = 1+ [facility] Comment on above: Order Comment: For i ndwelling catheters, specimen collection is acceptable on catheter day 1 and 2 only. ? Performed By: #### U [id number] ####[facility] (DEFAULT)[address] [place] [address], [place] [address] Urobilinogen Urine 1.0 E.U./dL Normal 0.2 E.U/d L, 1.0 E.U/dL [facility] Comment on above: Order Comment: For i ndwelling catheters, specimen collection is acceptable on catheter day 1 and 2 only. ? Performed By: #### U [id number] ####[facility] (DEFAULT)[address] [place] [address], [place] [address] WBC Urine 0 - 5 Normal 0 - 5 [facility] Comment on above: Order Comment: For i ndwelling catheters, specimen collection is acceptable on catheter day 1 and 2 only. ? Performed By: #### U [id number] ####[facility] (DEFAULT)[address] [place] [address], [place] [address] URINE CULTUREon 08-29-2023 Bacteria identified Cx Nom (U) No Growth Normal [facility] Comment on above: Order Comment: For i ndwelling catheters, specimen collection is acceptable on catheter day 1 and 2 only. Sung top vacutainer. Urine must be to the fill line to process (4mls). If minimum volume, send urine in a yellow top vacutainer tube. Performed By: #### U R ####[facility] (DEFAULT)[address] [place] [address], [place] [address] US RENAL TRANSPLANT SCANon 0 08-29-2023 US RENAL TRANSPLANT SCAN Normal [facility] US for transplanted kidney l imitedon 08-29-2023 RADIOLOGY RADIOLOGY [facility] Radiology Study observation (narrative) [facility] US for transplanted kidney l imitedOrdered By: Romana Matias on 08-29-[address] [facility] Work Phone: XR CHEST PORTABLEon 08-29-20 23 XR CHEST PORTABLE Normal [facility] BLOOD CULTUREon 08-28-2023 Bacteria identified Cx Nom (Unsp spec) NO GROWTH DAY 5 OF 5 Normal [facility] Comment on above: Order Comment: 2 Bot tles (1 Set - consists of 1 Aerobic bottle and 1 Anaerobic bottle) -1st Peripheral DrawFor syringe method draw:If able to obtain adequate sample (20 ml) inoculate anaerobic bottle firstIf inadequate sample obtained (less than 20 ml) inoculate aerobic bottle firstFor vacutainer method draw: Fill aerobic bottle first, then anaerobic Performed By: #### B LDCULT ####[facility] (DEFAULT)[address] [place] [address] Bacteria identified Cx Nom (Unsp spec) NO GROWTH DAY 5 OF 5 Normal [facility] Comment on above: Order Comment: 2 Bot tles (1 Set - consists of 1 Aerobic bottle and 1 Anaerobic bottle) -1st Peripheral DrawFor syringe method draw:If able to obtain adequate sample (20 ml) inoculate anaerobic bottle firstIf inadequate sample obtained (less than 20 ml) inoculate aerobic bottle firstFor vacutainer method draw: Fill aerobic bottle first, then anaerobic Performed By: #### B LDCULT ####[facility] (DEFAULT)[address] [place] [address] DARYL AURIS SCREEN BY PCRo n 08-28-2023 Daryl auris Screen by PCR Not detected Normal Not Detected [facility] Comment on above: Order Comment: This test was performed using a real-time PCR assay. This test was developed, and its performance characteristics determined by [facility] at [facility]. It has not been cleared or approved by the FDA. The laboratory is regulated under CLIA as qualified to perform high-complexity testing. This test is used for clinical purposes. It should not be regarded as investigational or for research. Performed By: #### C ANDIDA AURIS SCREEN BY PCR ####[facility] (DEFAULT)[address] [place] [address] CBC AND ELECTRONIC DIFFon Basophils (Bld) [#/Vol] K/uL 0.00 - 0.09 K/uL [facility] Basophils/100 WBC (Bld) 0.6 % [facility] Differential cell count method Nom (Bld) Electronic Differential [facility] Eosinophils (Bld) [#/Vol] 0.10 10*3/uL 0.00 - 0.48 K/uL [facility] Eosinophils/100 WBC (Bld) 2.1 % [facility] Erythrocyte distribution width (RBC) [Ratio] 13.4 % 10.9 - 14.3 % [facility] Hematocrit (Bld) [Volume fraction] 37.9 % Low 39.6 - 48.8 % [facility] Hemoglobin (Bld) [Mass/Vol] 12.4 g/dL Low 13.4 - 16.8 g/dL [facility] Immature granulocytes (Bld) [#/Vol] K/uL NINF - 0.07 K/uL [facility] Immature granulocytes/100 WBC (Bld) 0.6 % [facility] Interpretation and review of laboratory results Abnormal [facility] Lymphocytes (Bld) [#/Vol] 1.76 10*3/uL 0.83 - 3.57 K/uL [facility] Lymphocytes/100 WBC (Bld) 37.1 % [facility] MCH (RBC) [Entitic mass] 27.8 pg 26.1 - 33.[address] [facility] MCHC (RBC) [Mass/Vol] 32.7 g/dL 31.9 - 36.5 g/dL [facility] MCV (RBC) [Entitic vol] 85.0 fL 79.0 - 94.[address] [facility] Monocytes (Bld) [#/Vol] 0.66 10*3/uL 0.24 - 0.93 K/uL [facility] Monocytes/100 WBC (Bld) 13.9 % [facility] Neutrophils (Bld) [#/Vol] 2.16 10*3/uL 1.57 - 6.19 K/uL [facility] Nucleated RBC/100 WBC (Bld) [Ratio] 0.0 % NINF [facility] Platelet mean volume (Bld) [Entitic vol] 9.3 fL 8.7 - 12.[address] [facility] Platelets (Bld) [#/Vol] 262 10*3/uL 146 - 337 K/uL [facility] RBC (Bld) [#/Vol] 4.46 10*6/uL [facility] Segmented neutrophils/100 WBC (Bld) 45.7 % [facility] WBC (Bld) [#/Vol] 4.74 10*3/uL 3.73 - 10. 10 K/uL [facility] Abs Baso Auto < Normal 0.00-0.09 [facility] Comment on above: Performed By: #### L [id number] ####[facility] (DEFAULT)[address] [place] [address] Basophils/100 WBC (Bld) 0.6 % Normal [facility] Comment on above: Performed By: #### L [id number] ####[facility] (DEFAULT)[address] [place] [address] DIFF STATUS Electronic Differential Normal [facility] Comment on above: Performed By: #### L [id number] ####[facility] (DEFAULT)[address] [place] [address] Eosinophils (Bld) [#/Vol] 0.10 10*3/uL Normal 0.00-0.48 [facility] Comment on above: Performed By: #### L [id number] ####[facility] (DEFAULT)[address] [place] [address] Eosinophils/100 WBC (Bld) 2.1 % Normal [facility] Comment on above: Performed By: #### L [id number] ####[facility] (DEFAULT)[address] [place] [address] Hematocrit (Bld) [Volume fraction] 37.9 % Low 39.6-48.8 [facility] Comment on above: Performed By: #### L [id number] ####[facility] (DEFAULT)[address] [place] [address] Hemoglobin (Bld) [Mass/Vol] 12.4 g/dL Low 13.4-16.8 [facility] Comment on above: Performed By: #### L [id number] ####[facility] (DEFAULT)[address] [place] [address], [place] [address] Immature Grans % 0.6 % Normal [facility] Comment on above: Performed By: #### L [id number] ####[facility] (DEFAULT)[address] [place] [address] Immature Grans Absolute < Normal <=0.07 [facility] Comment on above: Performed By: #### L [id number] ####[facility] (DEFAULT)[address] [place] [address] Lymphocytes (Bld) [#/Vol] 1.76 10*3/uL Normal 0.83-3.57 [facility] Comment on above: Performed By: #### L [id number] ####[facility] (DEFAULT)[address] [place] [address] Lymphocytes/100 WBC (Bld) 37.1 % Normal [facility] Comment on above: Performed By: #### L [id number] ####[facility] (DEFAULT)[address] [place] [address] MCV (RBC) [Entitic vol] 85.0 fL Normal 79.0-94.5 [facility] Comment on above: Performed By: #### L [id number] ####[facility] (DEFAULT)[address] [place] [address] Mean Cell Hgb 27.8 pg Normal 26.1-33.3 [facility] Comment on above: Performed By: #### L [id number] ####[facility] (DEFAULT)[address] [place] [address] Mean Cell Hgb Conc 32.7 g/dL Normal 31.9-36.5 [facility] Comment on above: Performed By: #### L [id number] ####[facility] (DEFAULT)[address] [place] [address] Monocytes (Bld) [#/Vol] 0.66 10*3/uL Normal 0.24-0.93 [facility] Comment on above: Performed By: #### L [id number] ####[facility] (DEFAULT)[address] [place] [address] Monocytes/100 WBC (Bld) 13.9 % Normal [facility] Comment on above: Performed By: #### L [id number] ####[facility] (DEFAULT)[address] [place] [address] Nucleated RBC 0.0 /100 WBC Normal <=0.2 [facility] Comment on above: Performed By: #### L [id number] ####[facility] (DEFAULT)[address] [place] [address] Platelet mean volume (Bld) [Entitic vol] 9.3 fL Normal 8.7-12.3 [facility] Comment on above: Performed By: #### L [id number] ####[facility] (DEFAULT)[address] [place] [address] Platelets (Bld) [#/Vol] 262 10*3/uL Normal 146-337 [facility] Comment on above: Performed By: #### L [id number] ####[facility] (DEFAULT)[address] [place] [address] RBC (Bld) [#/Vol] 4.46 10*6/uL Normal 4.38-5.83 [facility] Comment on above: Performed By: #### L [id number] ####[facility] (DEFAULT)[address] [place] [address] RBC Distribution 13.4 % Normal 10.9-14.3 [facility] Comment on above: Performed By: #### L [id number] ####[facility] (DEFAULT)[address] [place] [address] Segs + Bands Auto 45.7 % Normal [facility] Comment on above: Performed By: #### L [id number] ####[facility] (DEFAULT)[address] [place] [address] Segs + Bands,Absolute Auto 2.16 K/uL Normal 1.57-6.19 [facility] Comment on above: Performed By: #### L [id number] ####[facility] (DEFAULT)[address] [place] [address] WBC (Bld) [#/Vol] 4.74 10*3/uL Normal 3.73-10.10 [facility] Comment on above: Performed By: #### L [id number] ####[facility] (DEFAULT)[address] [place] [address] CHEM 6 (LYTES, BUN CREA)on 0 08-28-2023 Anion gap [Moles/Vol] 13 mmol/L 7 - 17 mmol/L [facility] Chloride [Moles/Vol] 103 mmol/L 98 - 10 8 mmol/L [facility] CO2 [Moles/Vol] 22 mmol/L 21 - 31 mmol/L [facility] Creatinine [Mass/Vol] 1.62 mg/dL High 0.70 - 1.30 mg/dL [facility] eGFR, CKD-EPI, Male 51 Low - PINF [facility] Interpretation and review of laboratory results Abnormal [facility] Potassium [Moles/Vol] 4.3 mmol/L 3.5 - 5.0 mmol/L [facility] Sodium [Moles/Vol] 134 mmol/L Low 135 - 145 mmol/L [facility] Urea nitrogen [Mass/Vol] 22 mg/dL 7 - 25 mg/dL [facility] Urea nitrogen/Creatinine [Mass ratio] 14 mg/mg [facility] Anion gap [Moles/Vol] 13 mmol/L Normal 7-17 [facility] Comment on above: Performed By: #### C HM6 ####[facility] (DEFAULT)[address] [place] [address] Chloride [Moles/Vol] 103 mmol/L Normal 98-108 [facility] Comment on above: Performed By: #### C HM6 ####[facility] (DEFAULT)[address] [place] [address] CO2 [Moles/Vol] 22 mmol/L Normal 21-31 [facility] Comment on above: Performed By: #### C HM6 ####[facility] (DEFAULT)[address] [place] [address] Creatinine [Mass/Vol] 1.62 mg/dL High 0.70-1.30 [facility] Comment on above: Performed By: #### C HM6 ####[facility] (DEFAULT)[address] [place] [address] GFR/1.73 sq M.predicted among non-blacks MDRD (S/P/Bld) [Vol rate/Area] 51 mL/min/{1.73_m2} Low >=60 [facility] Comment on above: Result Comment: Repo rted eGFR is based on the CKD-EPI 2020 equation using creatinine, age, and sex. Performed By: #### C HM6 ####[facility] (DEFAULT)[address] [place] [address] Potassium [Moles/Vol] 4.3 mmol/L Normal 3.5-5.0 [facility] Comment on above: Performed By: #### C HM6 ####[facility] (DEFAULT)[address] [place] [address] Sodium [Moles/Vol] 134 mmol/L Low 135-145 [facility] Comment on above: Performed By: #### C HM6 ####[facility] (DEFAULT)[address] [place] [address] Urea nitrogen [Mass/Vol] 22 mg/dL Normal 7-25 [facility] Comment on above: Performed By: #### C HM6 ####[facility] (DEFAULT)[address] [place] [address] Urea nitrogen/Creatinine [Mass ratio] 14 mg/mg Normal [facility] Comment on above: Performed By: #### C HM6 ####[facility] (DEFAULT)[address] [place] [address], [place] [address] IMMUNOCOMPROMISED RESPIRATOR Y PANELon 08-28-2023 Adenovirus - Pcr Not detected Normal Not Detected [facility] Comment on above: Order Comment: [...] By: #### I CRESP ####[facility] (DEFAULT)[address] [place] [address] Bordetella Parapertussis Not detected Normal Not Detected [facility] Comment on above: Order Comment: [...] acid assay. Performed By: #### I CRESP ####[facility] (DEFAULT)[address] [place] [address], [place] [address] Bordetella Pertussis Not detected Normal Not Detected [facility] Comment on above: Order Comment: [...] acid assay. Performed By: #### I CRESP ####[facility] (DEFAULT)[address] [place] [address] Chlamydia Pneumoniae Not detected Normal Not Detected [facility] Comment on above: Order Comment: [...] By: #### I CRESP ####[facility] (DEFAULT)[address] [place] [address], [place] [address] Coronavirus 229E Not detected Normal Not Detected [facility] Comment on above: Order Comment: [...] acid assay. Performed By: #### I CRESP ####[facility] (DEFAULT)[address] [place] [address], [place] [address] Coronavirus Hku1 Not detected Normal Not Detected [facility] Comment on above: Order Comment: [...] acid assay. Performed By: #### I CRESP ####[facility] (DEFAULT)[address] [place] [address], [place] [address] Coronavirus Nl63 Not detected Normal Not Detected [facility] Comment on above: Order Comment: [...] acid assay. Performed By: #### I CRESP ####[facility] (DEFAULT)[address] [place] [address], [place] [address] Coronavirus Oc43 Not detected Normal Not Detected [facility] Comment on above: Order Comment: [...] acid assay. Performed By: #### I CRESP ####[facility] (DEFAULT)[address] [place] [address], [place] [address] Influenza A - Pcr Not detected Normal Not Detected [facility] Comment on above: Order Comment: Viral [...] acid assay. Performed By: #### I CRESP ####[facility] (DEFAULT)[address] [place] [address] Influenza B - Pcr Not detected Normal Not Detected [facility] Comment on above: Order Comment: Viral [...] acid assay. Performed By: #### I CRESP ####[facility] (DEFAULT)[address] [place] [address], [place] [address] Metapneumovirus - Pcr Not detected Normal Not Detected [facility] Comment on above: Order Comment: [...] By: #### I CRESP ####[facility] (DEFAULT)[address] [place] [address] Mycoplasma Pneumoniae Not detected Normal Not Detected [facility] Comment on above: Order Comment: [...] By: #### I CRESP ####[facility] (DEFAULT)[address] [place] [address] Parainfluenza 1 - Pcr Not detected Normal Not Detected [facility] Comment on above: Order Comment: [...] By: #### I CRESP ####[facility] (DEFAULT)[address] [place] [address] Parainfluenza 2 - Pcr Not detected Normal Not Detected [facility] Comment on above: Order Comment: [...] acid assay. Performed By: #### I CRESP ####[facility] (DEFAULT)[address] [place] [address] Parainfluenza 3 - Pcr Not detected Normal Not Detected [facility] Comment on above: Order Comment: [...] By: #### I CRESP ####[facility] (DEFAULT)[address] [place] [address], [place] [address] Parainfluenza 4 - Pcr Not detected Normal Not Detected [facility] Comment on above: Order Comment: [...] By: #### I CRESP ####[facility] (DEFAULT)[address] [place] [address] Rhinovirus/Enterovir us - PCR Not detected Normal Not Detected [facility] Comment on above: Order Comment: [...] acid assay. Performed By: #### I CRESP ####[facility] (DEFAULT)[address] [place] [address] Rsv - Pcr Not detected Normal Not Detected [facility] Comment on above: Order Comment: [...] acid assay. Performed By: #### I CRESP ####[facility] (DEFAULT)[address] [place] [address] SARS-CoV-2 (COVID-19) RNA ESTELITA+probe Ql (Unsp spec) Not detected Normal NOT DETECTED [facility] Comment on above: Order Comment: [...] acid assay. Performed By: #### I CRESP ####[facility] (DEFAULT)[address] [place] [address] Portable XR Chest Viewson Radiology Study observation (narrative) [facility] Respiratory virus DNA+RNA NA A+probe Nom (Unsp spec)Ordered By: Dayami Harris on 08-28-2023 Adenovirus DNA ESTELITA+probe Nom (Unsp spec) Not detected Not Detected [facility] B. parapertussis DNA ESTELITA+probe Ql (Unsp spec) Not detected Not Detected [facility] B. pertussis DNA ESTELITA+probe Ql (Unsp spec) Not detected Not Detected [facility] C. pneumoniae DNA ESTELITA+probe Ql (Unsp spec) Not detected Not Detected [facility] FLUAV RNA ESTELITA+probe Ql (Unsp spec) Not detected Not Detected [facility] FLUBV RNA ESTELITA+probe Ql (Unsp spec) Not detected Not Detected [facility] HCoV 229E RNA ESTELITA+non-probe Ql (Nph) Not detected Not Detected [facility] HCoV HKU1 RNA ESTELITA+non-probe Ql (Nph) Not detected Not Detected [facility] HCoV NL63 RNA ESTELITA+non-probe Ql (Nph) Not detected Not Detected [facility] HCoV OC43 RNA ESTELITA+non-probe Ql (Nph) Not detected Not Detected [facility] hMPV A RNA ESTELITA+probe Ql (Unsp spec) Not detected Not Detected [facility] Interpretation and review of laboratory results Normal [facility] M. pneumoniae DNA ESTELITA+probe Ql (Unsp spec) Not detected Not Detected [facility] Parainfluenza virus 1 RNA ESTELITA+probe Ql (Unsp spec) Not detected Not Detected [facility] Parainfluenza virus 2 RNA ESTELITA+probe Ql (Unsp spec) Not detected Not Detected [facility] Parainfluenza virus 3 RNA ESTELITA+probe Ql (Unsp spec) Not detected Not Detected [facility] Parainfluenza virus 4 RNA ESTELITA+probe Ql (Unsp spec) Not detected Not Detected [facility] Rhinovirus+Enterovir us RNA ESTELITA+probe Ql (Unsp spec) Not detected Not Detected [facility] RSV RNA ESTELITA+probe Ql (Unsp spec) Not detected Not Detected [facility] SARS-CoV-2 (COVID-19) RNA ESTELITA+probe Ql (Unsp spec) Not detected NOT DETECTED [facility] ALBUMINon 04-28-2023 Albumin [Mass/Vol] 4.0 g/dL Normal 3.4-5.0 [facility] Comment on above: Performed By: #### C MP #### [facility] [address] [place] [address] Dr. Dwight Waters ALKALINE PHOSPHAon ALP [Catalytic activity/Vol] 106 U/L Normal 46-116 [facility] Comment on above: Performed By: #### F [id number] #### [facility] [address] [place] [address] Dr. Dwight Waters BILIRUBIN CONJUGATED (DIRECT )on 04-28-2023 BILI, CONJUGATED 0.3 mg/dL Critically high 0.0-0.2 [facility] Comment on above: Performed By: #### C MP #### [facility] [address] [place] [address] Dr. Dwight Waters BILIRUBIN TOTALon 04-28-2023 Bilirubin [Mass/Vol] 1.4 mg/dL Critically high 0.2-1.0 [facility] Comment on above: Performed By: #### C MP #### [facility] [address] [place] [address] Dr. Dwight Waters BUNon 04-28-2023 Urea nitrogen [Mass/Vol] 12.0 mg/dL Normal 7.0-18.0 [facility] Comment on above: Performed By: #### U RTPCR #### [facility] [address] [place] [address] Dr. Dwight Waters CALCIUMon 04-28-2023 Calcium [Mass/Vol] 9.3 mg/dL Normal 8.5-10.1 [facility] Comment on above: Performed By: #### U RTPCR #### [facility] [address] [place] [address] Dr. Dwight Waters CBC AUTO DIFFon 04-28-2023 BASO # 0.1 103/ul Normal 0.0-0.1 [facility] Comment on above: Performed By: #### C BC #### [facility] [address] [place] [address] Dr. Dwight Waters Basophils/100 WBC (Bld) 0.9 % Normal 0.2-2.0 [facility] Comment on above: Performed By: #### C BC #### [facility] [address] [place] [address] Dr. Dwight Waters EO # 0.2 103/ul Normal 0.0-0.7 [facility] Comment on above: Performed By: #### C BC #### [facility] [address] [place] [address] Dr. Dwight Waters Eosinophils/100 WBC (Bld) 3.8 % Normal 0.9-7.0 [facility] Comment on above: Performed By: #### C BC #### [facility] [address] [place] [address] Dr. Dwight Waters Erythrocyte distribution width (RBC) [Ratio] 12.5 % Normal 11.0-15.0 [facility] Comment on above: Performed By: #### C BC #### [facility] [address] [place] [address] Dr. Dwight Waters Hematocrit (Bld) [Volume fraction] 49.8 % Normal 42.0-54.0 [facility] Comment on above: Performed By: #### C BC #### [facility] [address] [place] [address] Dr. Dwight Waters Hemoglobin (Bld) [Mass/Vol] 16.4 g/dL Normal 14.0-18.0 [facility] Comment on above: Performed By: #### C BC #### [facility] [address] [place] [address] Dr. Dwight Waters IG # 0.01 10e3/ul Normal 0.00-0.03 [facility] Comment on above: Performed By: #### C BC #### [facility] [address] [place] [address] Dr. Dwight Waters IG % 0.2 % Normal 0.0-0.5 [facility] Comment on above: Performed By: #### C BC #### [facility] [address] [place] [address] Dr. Dwight Waters LYMPH # 2.1 103/ul Normal 1.2-3.8 [facility] Comment on above: Performed By: #### C BC #### [facility] [address] [place] [address] Dr. Dwight Waters Lymphocytes/100 WBC (Bld) 39.1 % Normal 20.5-60.0 [facility] Comment on above: Performed By: #### C BC #### [facility] [address] [place] [address] Dr. Dwight Waters MANUAL DIFF REQ NO Normal [facility] Comment on above: Performed By: #### C BC #### [facility] [address] [place] [address] Dr. Dwight Waters MCH (RBC) [Entitic mass] 28.6 pg Normal 25.9-34.0 [facility] Comment on above: Performed By: #### C BC #### [facility] [address] [place] [address] Dr. Dwight Waters MCHC (RBC) [Mass/Vol] 32.9 g/dL Normal 29.9-35.2 [facility] Comment on above: Performed By: #### C BC #### [facility] [address] [place] [address] Dr. Dwight Waters MCV (RBC) [Entitic vol] 86.9 fL Normal 80.0-94.0 [facility] Comment on above: Performed By: #### C BC #### [facility] [address] [place] [address] Dr. Dwight Waters MONO # 0.6 103/ul Normal 0.3-0.8 [facility] Comment on above: Performed By: #### C BC #### [facility] [address] [place] [address] Dr. Dwight Waters Monocytes/100 WBC (Bld) 10.6 % Normal 1.7-12.0 [facility] Comment on above: Performed By: #### C BC #### [facility] [address] [place] [address] Dr. Dwight Waters NEUT # 2.5 103/ul Normal 1.4-6.5 [facility] Comment on above: Performed By: #### C BC #### [facility] [address] [place] [address] Dr. Dwight Waters Neutrophils/100 WBC (Bld) 45.4 % Normal 43.0-75.0 [facility] Comment on above: Performed By: #### C BC #### [facility] [address] [place] [address] Dr. Dwight Waters Platelet mean volume (Bld) [Entitic vol] 9.3 fL Critically low 9.5-13.5 [facility] Comment on above: Performed By: #### C BC #### [facility] [address] [place] [address] Dr. Dwight Waters PLT 248 103/ul Normal 150-450 [facility] Comment on above: Performed By: #### C BC #### [facility] [address] [place] [address] Dr. Dwight Waters RBC 5.73 106/ul Normal 4.70-6.10 [facility] Comment on above: Performed By: #### C BC #### [facility] [address] [place] [address] Dr. Dwight Waters WBC 5.5 103/ul Normal 4.0-11.0 [facility] Comment on above: Performed By: #### C BC #### [facility] [address] [place] [address] Dr. Dwight Waters CHLORIDEon 04-28-2023 Chloride [Moles/Vol] 107 mmol/L Normal 98-107 [facility] Comment on above: Performed By: #### U RTPCR #### [facility] [address] [place] [address] Dr. Dwight Waters CO2on 04-28-2023 CO2 [Moles/Vol] 28.9 mmol/L Normal 21.0-32.0 [facility] Comment on above: Performed By: #### U RTPCR #### [facility] [address] [place], [place] [id number] Dr. Dwight Waters CREATININEon 04-28-2023 Creatinine [Mass/Vol] 1.17 mg/dL Normal 0.70-1.30 [facility] Comment on above: Performed By: #### U RTPCR #### [facility] [address] [place] [address] Dr. Dwight Waters EGFR-AF DJIBOUTIAN >60 Normal >=60 [facility] Comment on above: Performed By: #### U RTPCR #### [facility] [address] [place] [address] Dr. Dwight Waters EGFR-NON AF DJIBOUTIAN >60 Normal >=60 [facility] Comment on above: Performed By: #### U RTPCR #### [facility] [address] [place] [address] Dr. Dwight Waters GGTon 04-28-2023 Gamma glutamyl transferase [Catalytic activity/Vol] 27 U/L Normal 15-85 [facility] Comment on above: Performed By: #### U RTPCR #### [facility] [address] [place] [address] Dr. Dwight Waters GLUCOSE BLOODon 04-28-2023 Glucose [Mass/Vol] 110 mg/dL Critically high 74-106 [facility] Comment on above: Performed By: #### U RTPCR #### [facility] [address] [place] [address] Dr. Dwight Waters MAGNESIUMon 04-28-2023 Magnesium [Mass/Vol] 1.7 mg/dL Critically low 1.8-2.4 [facility] Comment on above: Performed By: #### U RTPCR #### [facility] [address] [place] [address] Dr. Dwight Waters NAon 04-28-2023 Sodium [Moles/Vol] 144 mmol/L Normal 136-145 [facility] Comment on above: Performed By: #### U RTPCR #### [facility] [address] [place] [address] Dr. Dwight Waters PHOSPHORUSon 04-28-2023 Phosphate [Mass/Vol] 3.2 mg/dL Normal 2.6-4.7 [facility] Comment on above: Performed By: #### U RTPCR #### [facility] [address] [place] [address] Dr. Dwight Waters POTASSIUMon 04-28-2023 Potassium [Moles/Vol] 4.0 mmol/L Normal 3.5-5.1 [facility] Comment on above: Performed By: #### U RTPCR #### [facility] [address] [place] [address] Dr. Dwight Waters SGOTon 04-28-2023 AST [Catalytic activity/Vol] 25 U/L Normal 15-37 [facility] Comment on above: Performed By: #### C MP #### [facility] [address] [place] [address] Dr. Dwight Waters SGPTon 04-28-2023 ALT [Catalytic activity/Vol] 40 U/L Normal 16-63 [facility] Comment on above: Performed By: #### C MP #### [facility] [address] [place] [address] Dr. Dwight Waters URINE T PROTEIN CREAT RATIOo n 04-28-2023 Protein (U) [Mass/Vol] 10.1 mg/dL Normal <=12.0 [facility] Comment on above: Performed By: #### U RTPCR #### [facility] [address] [place] [address] Dr. Dwight Waters UR PROT CREAT RAT 0.14 Normal [facility] Comment on above: Performed By: #### U RTPCR #### [facility] [address] [place] [address] Dr. Dwight Waters URINE CREAT 74.40 mg/dL Normal 20.00-300.00 [facility] Comment on above: Performed By: #### U RTPCR #### [facility] [address] [place] [address] Dr. Dwight Waters BK VIRUS PCR QUANTon 023 BKV DNA QUANT PCR PLASMA Negative Normal Negative [facility] Comment on above: Result Comment: No B K DNA detected. . The linear range of the assay is 22 - 100,000,000 IU/mL. Performed By: #### B KVIRUS #### [facility] [address] [place] [address] Dr. Dwight Waters Log10 BKV DNA Plasma Normal [facility] Comment on above: Performed By: #### B KVIRUS #### [facility] [address] [place] [address] Dr. Dwight Waters FK506 (TACROLIMUS) WHOLE BLO ODon 03-04-2023 Tacrolimus (FK506), Blood 5.9 ng/mL Normal 2.0-20.0 [facility] Comment on above: Result Comment: Trou gh (immediately following transplant) 15.0 . Trough (steady state, 2 weeks or more after transplant): 3.0 - 8.0 . Performed by LC-MS/MS technology. Performed By: #### C MP #### [facility] [address] [place] [address] Dr. Dwight Waters ALBUMINon 03-02-2023 Albumin [Mass/Vol] 3.9 g/dL Normal 3.4-5.0 [facility] Comment on above: Performed By: #### U RTPCR #### [facility] [address] [place] [address] Dr. Dwight Waters ALKALINE PHOSPHAon ALP [Catalytic activity/Vol] 105 U/L Normal 46-116 [facility] Comment on above: Performed By: #### U RTPCR #### [facility] [address] [place] [address] Dr. Dwight Waters BILIRUBIN CONJUGATED (DIRECT )on 03-02-2023 BILI, CONJUGATED 0.2 mg/dL Normal 0.0-0.2 [facility] Comment on above: Performed By: #### U RTPCR #### [facility] [address] [place] [address] Dr. Dwight Waters BILIRUBIN TOTALon 03-02-2023 Bilirubin [Mass/Vol] 0.9 mg/dL Normal 0.2-1.0 [facility] Comment on above: Performed By: #### U RTPCR #### [facility] [address] [place] [address] Dr. Dwight Waters CBC AUTO DIFFon 03-02-2023 BASO # 0.1 103/ul Normal 0.0-0.1 [facility] Comment on above: Performed By: #### C BC #### [facility] [address] [place] [address] Dr. Dwight Waters Basophils/100 WBC (Bld) 0.9 % Normal 0.2-2.0 [facility] Comment on above: Performed By: #### C BC #### [facility] [address] [place] [address] Dr. Dwight Waters EO # 0.2 103/ul Normal 0.0-0.7 [facility] Comment on above: Performed By: #### C BC #### [facility] [address] [place] [address] Dr. Dwight Waters Eosinophils/100 WBC (Bld) 3.5 % Normal 0.9-7.0 [facility] Comment on above: Performed By: #### C BC #### [facility] [address] [place] [address] Dr. Dwight Waters Erythrocyte distribution width (RBC) [Ratio] 12.7 % Normal 11.0-15.0 [facility] Comment on above: Performed By: #### C BC #### [facility] [address] [place] [address] Dr. Dwight Waters Hematocrit (Bld) [Volume fraction] 48.2 % Normal 42.0-54.0 [facility] Comment on above: Performed By: #### C BC #### [facility] [address] [place] [address] Dr. Dwight Waters Hemoglobin (Bld) [Mass/Vol] 15.9 g/dL Normal 14.0-18.0 [facility] Comment on above: Performed By: #### C BC #### [facility] [address] [place] [address] Dr. Dwight Waters IG # 0.01 10e3/ul Normal 0.00-0.03 [facility] Comment on above: Performed By: #### C BC #### [facility] [address] [place] [address] Dr. Dwight Waters IG % 0.2 % Normal 0.0-0.5 [facility] Comment on above: Performed By: #### C BC #### [facility] [address] [place] [address] Dr. Dwight Waters LYMPH # 2.1 103/ul Normal 1.2-3.8 [facility] Comment on above: Performed By: #### C BC #### [facility] [address] [place] [address] Dr. Dwight Waters Lymphocytes/100 WBC (Bld) 37.4 % Normal 20.5-60.0 [facility] Comment on above: Performed By: #### C BC #### [facility] [address] [place] [address] Dr. Dwight Waters MANUAL DIFF REQ NO Normal [facility] Comment on above: Performed By: #### C BC #### [facility] [address] [place] [address] Dr. Dwight Waters MCH (RBC) [Entitic mass] 28.3 pg Normal 25.9-34.0 [facility] Comment on above: Performed By: #### C BC #### [facility] [address] [place] [address] Dr. Dwight Waters MCHC (RBC) [Mass/Vol] 33.0 g/dL Normal 29.9-35.2 [facility] Comment on above: Performed By: #### C BC #### [facility] [address] [place] [address] Dr. Dwight Waters MCV (RBC) [Entitic vol] 85.8 fL Normal 80.0-94.0 [facility] Comment on above: Performed By: #### C BC #### [facility] [address] [place] [address] Dr. Dwight Waters MONO # 0.6 103/ul Normal 0.3-0.8 [facility] Comment on above: Performed By: #### C BC #### [facility] [address] [place] [address] Dr. Dwight Waters Monocytes/100 WBC (Bld) 10.2 % Normal 1.7-12.0 [facility] Comment on above: Performed By: #### C BC #### [facility] [address] [address] [address] Dwight Waters NEUT # 2.7 103/ul Normal 1.4-6.5 [facility] Comment on above: Performed By: #### C BC #### [facility] [address] [address] [address] Dwight Waters Neutrophils/100 WBC (Bld) 47.8 % Normal 43.0-75.0 [facility] Comment on above: Performed By: #### C BC #### [facility] [address] [place] [address] Dr. Dwight Waters Platelet mean volume (Bld) [Entitic vol] 9.3 fL Critically low 9.5-13.5 [facility] Comment on above: Performed By: #### C BC #### [facility] [address] [place] [address] Dr. Dwight Waters PLT 241 103/ul Normal 150-450 [facility] Comment on above: Performed By: #### C BC #### [facility] [address] [place] [address] Dr. Dwight Waters RBC 5.62 106/ul Normal 4.70-6.10 [facility] Comment on above: Performed By: #### C BC #### [facility] [address] [place] [address] Dr. Dwight Waters WBC 5.7 103/ul Normal 4.0-11.0 [facility] Comment on above: Performed By: #### C BC #### [facility] [address] [place] [address] Dr. Dwight Waters GGTon 03-02-2023 Gamma glutamyl transferase [Catalytic activity/Vol] 25 U/L Normal 15-85 [facility] Comment on above: Performed By: #### U RTPCR #### [facility] [address] [place] [address] Dr. Dwight Waters MAGNESIUMon 03-02-2023 Magnesium [Mass/Vol] 1.6 mg/dL Critically low 1.8-2.4 [facility] Comment on above: Performed By: #### U RTPCR #### [facility] [address] [place] [address] Dr. Dwight Waters PHOSPHORUSon 03-02-2023 Phosphate [Mass/Vol] 3.6 mg/dL Normal 2.6-4.7 [facility] Comment on above: Performed By: #### U RTPCR #### [facility] [address] [place] [address] Dr. Dwight Waters PROF CHEM 8 (BAS METB)on Anion gap [Moles/Vol] 9.4 mmol/L Normal [facility] Comment on above: Performed By: #### U RTPCR #### [facility] [address] [place] [address] Dr. Dwight Waters Calcium [Mass/Vol] 9.3 mg/dL Normal 8.5-10.1 [facility] Comment on above: Performed By: #### U RTPCR #### [facility] [address] [place] [address] Dr. Dwight Waters Chloride [Moles/Vol] 108 mmol/L Critically high 98-107 [facility] Comment on above: Performed By: #### U RTPCR #### [facility] [address] [place] [address] Dr. Dwight Waters CO2 [Moles/Vol] 27.2 mmol/L Normal 21.0-32.0 [facility] Comment on above: Performed By: #### U RTPCR #### [facility] [address] [place] [address] Dr. Dwight Waters Creatinine [Mass/Vol] 1.12 mg/dL Normal 0.70-1.30 [facility] Comment on above: Performed By: #### U RTPCR #### [facility] [address] [place] [address] Dr. Dwight Waters EGFR-AF DJIBOUTIAN >60 Normal >=60 [facility] Comment on above: Performed By: #### U RTPCR #### [facility] [address] [place] [address] Dr. Dwight Waters EGFR-NON AF DJIBOUTIAN >60 Normal >=60 [facility] Comment on above: Performed By: #### U RTPCR #### [facility] [address] [place] [address] Dr. Dwight Waters Glucose [Mass/Vol] 113 mg/dL Critically high 74-[address] [facility] Comment on above: Performed By: #### U RTPCR #### [facility] [address] [place] [address] Dr. Dwight Waters Potassium [Moles/Vol] 3.6 mmol/L Normal 3.5-5.1 [facility] Comment on above: Performed By: #### U RTPCR #### [facility] [address] [place] [address] Dr. Dwight Waters Sodium [Moles/Vol] 141 mmol/L Normal 136-145 [facility] Comment on above: Performed By: #### U RTPCR #### [facility] [address] [place] [address] Dr. Dwight Waters Urea nitrogen [Mass/Vol] 14.0 mg/dL Normal 7.0-18.0 [facility] Comment on above: Performed By: #### U RTPCR #### [facility] [address] [place] [address] Dr. Dwight Waters Urea nitrogen/Creatinine [Mass ratio] 12.5 mg/mg Normal [facility] Comment on above: Performed By: #### U RTPCR #### [facility] [address] [place] [address] Dr. Dwight Albert 03-02-2023 AST [Catalytic activity/Vol] 20 U/L Normal 15-37 [facility] Comment on above: Performed By: #### U RTPCR #### [facility] [address] [place] [address] Dr. Dwight Osei 03-02-2023 ALT [Catalytic activity/Vol] 30 U/L Normal 16-63 [facility] Comment on above: Performed By: #### U RTPCR #### [facility] [address] [place] [address] Dr. Dwight Waters URINE T PROTEIN CREAT RATIOo n 03-02-2023 Protein (U) [Mass/Vol] 10.3 mg/dL Normal <=12.0 [facility] Comment on above: Performed By: #### U RTPCR #### [facility] [address] [place] [address] Dr. Dwight Waters UR PROT CREAT RAT 0.15 Normal [facility] Comment on above: Performed By: #### U RTPCR #### [facility] [address] [place] [address] Dr. Dwight Waters URINE CREAT 68.96 mg/dL Normal 20.00-300.00 [facility] Comment on above: Performed By: #### U RTPCR #### [facility] [address] [place] [address] Dr. Dwight Waters BK VIRUS PCR QUANTon 023 BKV DNA QUANT PCR PLASMA Negative Normal Negative [facility] Comment on above: Result Comment: No B K DNA detected. . The linear range of the assay is 22 - 100,000,000 IU/mL. Performed By: #### C MP #### [facility] [address] [place] [address] Dr. Dwight Waters Log10 BKV DNA Plasma Normal [facility] Comment on above: Performed By: #### C MP #### [facility] [address] [place] [address] Dr. Dwight Waters FK506 (TACROLIMUS) WHOLE BLO ODon 12-31-2022 Tacrolimus (FK506), Blood 5.6 ng/mL Normal 2.0-20.0 [facility] Comment on above: Result Comment: Trou gh (immediately following transplant) 15.0 . Trough (steady state, 2 weeks or more after transplant): 3.0 - 8.0 . Performed by LC-MS/MS technology. Performed By: #### C MP #### [facility] [address] [place] [address] Dr. Dwight Waters ALKALINE PHOSPHAon 3 ALP [Catalytic activity/Vol] 96 U/L Normal 46-116 [facility] Comment on above: Performed By: #### C BC #### [facility] [address] [place] [address] Dr. Dwight Waters BILIRUBIN CONJUGATED (DIRECT )on 12-29-2022 BILI, CONJUGATED 0.3 mg/dL Critically high 0.0-0.2 [facility] Comment on above: Performed By: #### C BC #### [facility] [address] [place] [address] Dr. Dwight Waters BILIRUBIN TOTALon 12-29-2022 Bilirubin [Mass/Vol] 1.1 mg/dL Critically high 0.2-1.0 [facility] Comment on above: Performed By: #### C BC #### [facility] [address] [place] [address] Dr. Dwight Waters CBC AUTO DIFFon 12-29-2022 BASO # 0.1 103/ul Normal 0.0-0.1 [facility] Comment on above: Performed By: #### C MP #### [facility] [address] [place] [address] Dr. Dwight Waters Basophils/100 WBC (Bld) 0.8 % Normal 0.2-2.0 [facility] Comment on above: Performed By: #### C MP #### [facility] [address] [place] [address] Dr. Dwight Waters EO # 0.2 103/ul Normal 0.0-0.7 [facility] Comment on above: Performed By: #### C MP #### [facility] [address] [place] [address] Dr. Dwight Waters Eosinophils/100 WBC (Bld) 3.0 % Normal 0.9-7.0 [facility] Comment on above: Performed By: #### C MP #### [facility] [address] [place] [address] Dr. Dwight Waters Erythrocyte distribution width (RBC) [Ratio] 12.9 % Normal 11.0-15.0 [facility] Comment on above: Performed By: #### C MP #### [facility] [address] [place] [address] Dr. Dwight Waters Hematocrit (Bld) [Volume fraction] 46.9 % Normal 42.0-54.0 [facility] Comment on above: Performed By: #### C MP #### [facility] [address] [place] [address] Dr. Dwight Waters Hemoglobin (Bld) [Mass/Vol] 16.1 g/dL Normal 14.0-18.0 [facility] Comment on above: Performed By: #### C MP #### [facility] [address] [place] [address] Dr. Dwight Waters IG # 0.01 10e3/ul Normal 0.00-0.03 [facility] Comment on above: Performed By: #### C MP #### [facility] [address] [place] [address] Dr. Dwight Waters IG % 0.2 % Normal 0.0-0.5 [facility] Comment on above: Performed By: #### C MP #### [facility] [address] [place] [address] Dr. Dwight Waters LYMPH # 1.8 103/ul Normal 1.2-3.8 [facility] Comment on above: Performed By: #### C MP #### [facility] [address] [place] [address] Dr. Dwight Waters Lymphocytes/100 WBC (Bld) 27.9 % Normal 20.5-60.0 [facility] Comment on above: Performed By: #### C MP #### [facility] [address] [place] [address] Dr. Dwight Waters MANUAL DIFF REQ NO Normal [facility] Comment on above: Performed By: #### C MP #### [facility] [address] [place] [address] Dr. Dwight Waters MCH (RBC) [Entitic mass] 28.5 pg Normal 25.9-34.0 [facility] Comment on above: Performed By: #### C MP #### [facility] [address] [place] [address] Dr. Dwight Waters MCHC (RBC) [Mass/Vol] 34.3 g/dL Normal 29.9-35.2 [facility] Comment on above: Performed By: #### C MP #### [facility] [address] [address] [address] Dwight Waters MCV (RBC) [Entitic vol] 83.2 fL Normal 80.0-94.0 [facility] Comment on above: Performed By: #### C MP #### [facility] [address] [address] [address] Dwight Waters MONO # 0.5 103/ul Normal 0.3-0.8 [facility] Comment on above: Performed By: #### C MP #### [facility] [address] [address] [address] Dwight Waters Monocytes/100 WBC (Bld) 8.1 % Normal 1.7-12.0 [facility] Comment on above: Performed By: #### C MP #### [facility] [address] [address] [address] Dwight Waters NEUT # 3.8 103/ul Normal 1.4-6.5 [facility] Comment on above: Performed By: #### C MP #### [facility] [address] [place] [address] Dr. Dwight Waters Neutrophils/100 WBC (Bld) 60.0 % Normal 43.0-75.0 [facility] Comment on above: Performed By: #### C MP #### [facility] [address] [address] [address] Dwight Waters Platelet mean volume (Bld) [Entitic vol] 9.2 fL Critically low 9.5-13.5 [facility] Comment on above: Performed By: #### C MP #### [facility] [address] [address] [address] Dwight Waters PLT 225 103/ul Normal 150-450 [facility] Comment on above: Performed By: #### C MP #### [facility] [address] [address] [address] Dwight Waters RBC 5.64 106/ul Normal 4.70-6.10 [facility] Comment on above: Performed By: #### C MP #### [facility] [address] [address] [address] Dwight Waters WBC 6.3 103/ul Normal 4.0-11.0 [facility] Comment on above: Performed By: #### C MP #### [facility] [address] [address] [address] Dwight Waters GGTon 12-29-2022 Gamma glutamyl transferase [Catalytic activity/Vol] 24 U/L Normal 15-85 [facility] Comment on above: Performed By: #### C MP #### [facility] [address] [address] [address] Dwight Waters LIPID PROFILEon 12-29-2022 CHOL-HDL RATIO NORM SEE BELOW Normal [facility] Comment on above: Result Comment: 3.3 - 4.4 LOW RISK 4.4 - 7.1 AVERAGE RISK 7.1 - 11.0 MODERATE RISK >11.0 HIGH RISK Performed By: #### U RTPCR #### [facility] [address] [place] [address] Dr. Dwight Waters Cholesterol [Mass/Vol] 87 mg/dL Normal <=200 [facility] Comment on above: Performed By: #### U RTPCR #### [facility] [address] [place] [address] Dr. Dwight Waters Cholesterol in HDL [Mass/Vol] 44 mg/dL Normal 40-60 [facility] Comment on above: Performed By: #### U RTPCR #### [facility] [address] [place] [address] Dr. Dwight Waters Cholesterol in LDL [Mass/Vol] 33.0 mg/dL Normal [facility] Comment on above: Performed By: #### U RTPCR #### [facility] [address] [address] [address] Dwight Waters Cholesterol.total/Ch olesterol in HDL [Mass ratio] 2.0 {ratio} Normal [facility] Comment on above: Performed By: #### U RTPCR #### [facility] [address] [place] [address] Dr. Dwight Waters HDL NORMAL > or = 60 mg/dl - LO W CARDIOVASCULAR RISK <40 mg/dl - HIGH CARDIOVASCULAR RISK Normal [facility] Comment on above: Performed By: #### U RTPCR #### [facility] [address] [address] [address] Dwight Waters LDL CALC NORMAL SEE BELOW Normal [facility] Comment on above: Result Comment: <100 mg/dl OPTIMAL 100 - 129 mg/dl NEAR OR ABOVE OPTIMAL 130 - 159 mg/dl BORDERLINE HIGH 160 - 189 mg/dl HIGH >190 mg/dl VERY HIGH Performed By: #### U RTPCR #### [facility] [address] [address] [address] Dwight Waters Triglyceride [Mass/Vol] 50 mg/dL Normal <=150 [facility] Comment on above: Performed By: #### U RTPCR #### [facility] [address] [place] [address] Dr. Dwight Waters VLDL CALC 10.0 mg/dL Normal [facility] Comment on above: Performed By: #### U RTPCR #### [facility] [address] [place] [address] Dr. Dwight Waters MAGNESIUMon 12-29-2022 Magnesium [Mass/Vol] 1.6 mg/dL Critically low 1.8-2.4 [facility] Comment on above: Performed By: #### C BC #### [facility] [address] [place] [address] Dr. Dwight Waters RENAL FUNCTION PANELon 12-29 Albumin [Mass/Vol] 3.9 g/dL Normal 3.4-5.0 [facility] Comment on above: Performed By: #### C BC #### [facility] [address] [place] [address] Dr. Dwight Waters Calcium [Mass/Vol] 9.2 mg/dL Normal 8.5-10.1 [facility] Comment on above: Performed By: #### C BC #### [facility] [address] [place] [address] Dr. Dwight Waters Chloride [Moles/Vol] 109 mmol/L Critically high 98-107 [facility] Comment on above: Performed By: #### C BC #### [facility] [address] [address] [address] Dwight Waters CO2 [Moles/Vol] 27.0 mmol/L Normal 21.0-32.0 [facility] Comment on above: Performed By: #### C BC #### [facility] [address] [address] [address] Dwight Waters Creatinine [Mass/Vol] 1.02 mg/dL Normal 0.70-1.30 [facility] Comment on above: Performed By: #### C BC #### [facility] [address] [address] [address] Dwight Waters EGFR-AF DJIBOUTIAN >60 Normal >=60 [facility] Comment on above: Performed By: #### C BC #### [facility] [address] [place] [address] Dr. Dwight Waters EGFR-NON AF DJIBOUTIAN >60 Normal >=60 [facility] Comment on above: Performed By: #### C BC #### [facility] [address] [place] [address] Dr. Dwight Waters Glucose [Mass/Vol] 117 mg/dL Critically high 74-[address] [facility] Comment on above: Performed By: #### C BC #### [facility] [address] [place] [address] Dr. Dwight Waters Phosphate [Mass/Vol] 3.2 mg/dL Normal 2.6-4.7 [facility] Comment on above: Performed By: #### C BC #### [facility] [address] [place] [address] Dr. Dwight Waters Potassium [Moles/Vol] 4.1 mmol/L Normal 3.5-5.1 [facility] Comment on above: Performed By: #### C BC #### [facility] [address] [place] [address] Dr. Dwight Waters Sodium [Moles/Vol] 144 mmol/L Normal 136-145 [facility] Comment on above: Performed By: #### C BC #### [facility] [address] [place] [address] Dr. Dwight Waters Urea nitrogen [Mass/Vol] 13.0 mg/dL Normal 7.0-18.0 [facility] Comment on above: Performed By: #### C BC #### [facility] [address] [place] [address] Dr. Dwight Waters SGOTon 12-29-2022 AST [Catalytic activity/Vol] 21 U/L Normal 15-37 [facility] Comment on above: Performed By: #### C BC #### [facility] [address] [place] [address] Dr. Dwight Waters SGPTon 12-29-2022 ALT [Catalytic activity/Vol] 32 U/L Normal 16-63 [facility] Comment on above: Performed By: #### C BC #### [facility] [address] [place] [address] Dr. Dwight Waters URINE T PROTEIN CREAT RATIOo n 12-29-2022 Protein (U) [Mass/Vol] 14.3 mg/dL Critically high <=12.0 [facility] Comment on above: Performed By: #### U RTPCR #### [facility] [address] [place] [address] Dr. Dwight Waters UR PROT CREAT RAT 0.17 Normal [facility] Comment on above: Performed By: #### U RTPCR #### [facility] [address] [place] [address] Dr. Dwight Waters URINE CREAT 86.58 mg/dL Normal 20.00-300.00 [facility] Comment on above: Performed By: #### U RTPCR #### [facility] [address] [place] [address] Dr. Dwight Waters FK506 (TACROLIMUS) WHOLE BLO ODon 11-06-2022 Tacrolimus (FK506), Blood 4.9 ng/mL Normal 2.0-20.0 [facility] Comment on above: Result Comment: Trou gh (immediately following transplant) 15.0 . Trough (steady state, 2 weeks or more after transplant): 3.0 - 8.0 . Performed by LC-MS/MS technology. Performed By: #### U RTPCR #### [facility] [address] [place] [address] Dr. Dwight Waters ALKALINE PHOSPHAon ALP [Catalytic activity/Vol] 86 U/L Normal 46-116 [facility] Comment on above: Performed By: #### U RTPCR #### [facility] [address] [place] [address] Dr. Dwight Waters BILIRUBIN CONJUGATED (DIRECT )on 11-04-2022 BILI, CONJUGATED 0.2 mg/dL Normal 0.0-0.2 [facility] Comment on above: Performed By: #### U RTPCR #### [facility] [address] [place] [address] Dr. Dwight Waters BILIRUBIN TOTALon 11-04-2022 Bilirubin [Mass/Vol] 0.8 mg/dL Normal 0.2-1.0 [facility] Comment on above: Performed By: #### U RTPCR #### [facility] [address] [place] [address] Dr. Dwight Waters CBC AUTO DIFFon 11-04-2022 BASO # 0.1 103/ul Normal 0.0-0.1 [facility] Comment on above: Performed By: #### U RTPCR #### [facility] [address] [place] [address] Dr. Dwight Waters Basophils/100 WBC (Bld) 0.9 % Normal 0.2-2.0 [facility] Comment on above: Performed By: #### U RTPCR #### [facility] [address] [place] [address] Dr. Dwight Waters EO # 0.2 103/ul Normal 0.0-0.7 [facility] Comment on above: Performed By: #### U RTPCR #### [facility] [address] [place] [address] Dr. Dwight Waters Eosinophils/100 WBC (Bld) 3.7 % Normal 0.9-7.0 [facility] Comment on above: Performed By: #### U RTPCR #### [facility] [address] [place] [address] Dr. Dwight Waters Erythrocyte distribution width (RBC) [Ratio] 12.9 % Normal 11.0-15.0 [facility] Comment on above: Performed By: #### U RTPCR #### [facility] [address] [place] [address] Dr. Dwight Waters Hematocrit (Bld) [Volume fraction] 48.3 % Normal 42.0-54.0 [facility] Comment on above: Performed By: #### U RTPCR #### [facility] [address] [place] [address] Dr. Dwight Waters Hemoglobin (Bld) [Mass/Vol] 15.6 g/dL Normal 14.0-18.0 [facility] Comment on above: Performed By: #### U RTPCR #### [facility] [address] [place] [address] Dr. Dwight Waters IG # 0.01 10e3/ul Normal 0.00-0.03 [facility] Comment on above: Performed By: #### U RTPCR #### [facility] [address] [place] [address] Dr. Dwight Waters IG % 0.2 % Normal 0.0-0.5 [facility] Comment on above: Performed By: #### U RTPCR #### [facility] [address] [place] [address] Dr. Dwight Waters LYMPH # 1.9 103/ul Normal 1.2-3.8 [facility] Comment on above: Performed By: #### U RTPCR #### [facility] [address] [place] [address] Dr. Dwight Waters Lymphocytes/100 WBC (Bld) 33.0 % Normal 20.5-60.0 [facility] Comment on above: Performed By: #### U RTPCR #### [facility] [address] [place] [address] Dr. Dwight Waters MANUAL DIFF REQ NO Normal [facility] Comment on above: Performed By: #### U RTPCR #### [facility] [address] [place] [address] Dr. Dwight Waters MCH (RBC) [Entitic mass] 27.6 pg Normal 25.9-34.0 [facility] Comment on above: Performed By: #### U RTPCR #### [facility] [address] [place] [address] Dr. Dwight Waters MCHC (RBC) [Mass/Vol] 32.3 g/dL Normal 29.9-35.2 [facility] Comment on above: Performed By: #### U RTPCR #### [facility] [address] [place] [address] Dr. Dwight Waters MCV (RBC) [Entitic vol] 85.5 fL Normal 80.0-94.0 [facility] Comment on above: Performed By: #### U RTPCR #### [facility] [address] [place] [address] Dr. Dwight Waters MONO # 0.5 103/ul Normal 0.3-0.8 [facility] Comment on above: Performed By: #### U RTPCR #### [facility] [address] [place] [address] Dr. Dwight Waters Monocytes/100 WBC (Bld) 8.8 % Normal 1.7-12.0 [facility] Comment on above: Performed By: #### U RTPCR #### [facility] [address] [place] [address] Dr. Dwight Waters NEUT # 3.1 103/ul Normal 1.4-6.5 [facility] Comment on above: Performed By: #### U RTPCR #### [facility] [address] [place] [address] Dr. Dwight Waters Neutrophils/100 WBC (Bld) 53.4 % Normal 43.0-75.0 [facility] Comment on above: Performed By: #### U RTPCR #### [facility] [address] [place] [address] Dr. Dwight Waters Platelet mean volume (Bld) [Entitic vol] 9.2 fL Critically low 9.5-13.5 [facility] Comment on above: Performed By: #### U RTPCR #### [facility] [address] [place] [address] Dr. Dwight Waters PLT 255 103/ul Normal 150-450 [facility] Comment on above: Performed By: #### U RTPCR #### [facility] [address] [place] [address] Dr. Dwight Waters RBC 5.65 106/ul Normal 4.70-6.10 [facility] Comment on above: Performed By: #### U RTPCR #### [facility] [address] [place] [address] Dr. Dwight Waters WBC 5.7 103/ul Normal 4.0-11.0 [facility] Comment on above: Performed By: #### U RTPCR #### [facility] [address] [place] [address] Dr. Dwight Waters GGTon 11-04-2022 Gamma glutamyl transferase [Catalytic activity/Vol] 22 U/L Normal 15-85 [facility] Comment on above: Performed By: #### U RTPCR #### [facility] [address] [place] [address] Dr. Dwight Waters MAGNESIUMon 11-04-2022 Magnesium [Mass/Vol] 1.8 mg/dL Normal 1.8-2.4 [facility] Comment on above: Performed By: #### U RTPCR #### [facility] [address] [place] [address] Dr. Dwight Waters RENAL FUNCTION PANELon 11-04 Albumin [Mass/Vol] 3.8 g/dL Normal 3.4-5.0 [facility] Comment on above: Performed By: #### U RTPCR #### [facility] [address] [place] [address] Dr. Dwight Waters Calcium [Mass/Vol] 9.3 mg/dL Normal 8.5-10.1 [facility] Comment on above: Performed By: #### U RTPCR #### [facility] [address] [place] [address] Dr. Dwight Waters Chloride [Moles/Vol] 107 mmol/L Normal 98-107 [facility] Comment on above: Performed By: #### U RTPCR #### [facility] [address] [place] [address] Dr. Dwight Waters CO2 [Moles/Vol] 29.2 mmol/L Normal 21.0-32.0 [facility] Comment on above: Performed By: #### U RTPCR #### [facility] [address] [place] [address] Dr. Dwight Waters Creatinine [Mass/Vol] 1.07 mg/dL Normal 0.70-1.30 [facility] Comment on above: Performed By: #### U RTPCR #### [facility] [address] [place] [address] Dr. Dwight Waters EGFR-AF DJIBOUTIAN >60 Normal >=60 [facility] Comment on above: Performed By: #### U RTPCR #### [facility] [address] [place] [address] Dr. Dwight Waters EGFR-NON AF DJIBOUTIAN >60 Normal >=60 [facility] Comment on above: Performed By: #### U RTPCR #### [facility] [address] [place] [address] Dr. Dwight Waters Glucose [Mass/Vol] 106 mg/dL Normal 74-106 [facility] Comment on above: Performed By: #### U RTPCR #### [facility] [address] [place] [address] Dr. Dwight Waters Phosphate [Mass/Vol] 2.8 mg/dL Normal 2.6-4.7 [facility] Comment on above: Performed By: #### U RTPCR #### [facility] [address] [place] [address] Dr. Dwight Waters Potassium [Moles/Vol] 4.1 mmol/L Normal 3.5-5.1 [facility] Comment on above: Performed By: #### U RTPCR #### [facility] [address] [place] [address] Dr. Dwight Waters Sodium [Moles/Vol] 143 mmol/L Normal 136-145 [facility] Comment on above: Performed By: #### U RTPCR #### [facility] [address] [place] [address] Dr. Dwight Waters Urea nitrogen [Mass/Vol] 12.0 mg/dL Normal 7.0-18.0 [facility] Comment on above: Performed By: #### U RTPCR #### [facility] [address] [place] [address] Dr. Dwight OLVERAOTon 11-04-2022 AST [Catalytic activity/Vol] 19 U/L Normal 15-37 [facility] Comment on above: Performed By: #### U RTPCR #### [facility] [address] [place] [address] Dr. Dwight Waters SGPTon 11-04-2022 ALT [Catalytic activity/Vol] 28 U/L Normal 16-63 [facility] Comment on above: Performed By: #### U RTPCR #### [facility] [address] [place] [address] Dr. Dwight Waters URINE T PROTEIN CREAT RATIOo n 11-04-2022 Protein (U) [Mass/Vol] 10.7 mg/dL Normal <=12.0 [facility] Comment on above: Performed By: #### U RTPCR #### [facility] [address] [place] [address] Dr. Dwight Waters UR PROT CREAT RAT 0.13 Normal [facility] Comment on above: Performed By: #### U RTPCR #### [facility] [address] [place] [address] Dr. Dwight Waters URINE CREAT 84.50 mg/dL Normal 20.00-300.00 [facility] Comment on above: Performed By: #### U RTPCR #### [facility] [address] [place] [address] Dr. Dwight Waters FK506 (TACROLIMUS) WHOLE BLO ODon 09-18-2022 Tacrolimus (FK506), Blood 4.6 ng/mL Normal 2.0-20.0 [facility] Comment on above: Result Comment: Trou gh (immediately following transplant) 15.0 . Trough (steady state, 2 weeks or more after transplant): 3.0 - 8.0 . Performed by LC-MS/MS technology. Performed By: #### U RTPCR #### [facility] [address] [place] [address] Dr. Dwight Waters BK VIRUS PCR QUANTon 022 BKV DNA QUANT PCR PLASMA Negative Normal Negative [facility] Comment on above: Result Comment: No B K DNA detected. . The linear range of the assay is 22 - 100,000,000 IU/mL. Performed By: #### U RTPCR #### [facility] [address] [place] [address] Dr. Dwight Waters Log10 BKV DNA Plasma Normal [facility] Comment on above: Performed By: #### U RTPCR #### [facility] [address] [place] [address] Dr. Dwight Waters ALKALINE PHOSPHAon ALP [Catalytic activity/Vol] 92 U/L Normal 46-116 [facility] Comment on above: Performed By: #### U RTPCR #### [facility] [address] [place] [address] Dr. Dwight Waters BILIRUBIN CONJUGATED (DIRECT )on 09-15-2022 BILI, CONJUGATED 0.3 mg/dL Critically high 0.0-0.2 [facility] Comment on above: Performed By: #### U RTPCR #### [facility] [address] [place] [address] Dr. Dwight Waters BILIRUBIN TOTALon 09-15-2022 Bilirubin [Mass/Vol] 1.1 mg/dL Critically high 0.2-1.0 [facility] Comment on above: Performed By: #### U RTPCR #### [facility] [address] [place] [address] Dr. Dwight Waters CBC AUTO DIFFon 09-15-2022 BASO # 0.1 103/ul Normal 0.0-0.1 [facility] Comment on above: Performed By: #### C BC #### [facility] [address] [place] [address] Dr. Dwight Waters Basophils/100 WBC (Bld) 0.8 % Normal 0.2-2.0 [facility] Comment on above: Performed By: #### C BC #### [facility] [address] [place] [address] Dr. Dwight Waters EO # 0.2 103/ul Normal 0.0-0.7 [facility] Comment on above: Performed By: #### C BC #### [facility] [address] [place] [address] Dr. Dwight Waters Eosinophils/100 WBC (Bld) 3.5 % Normal 0.9-7.0 [facility] Comment on above: Performed By: #### C BC #### [facility] [address] [place] [address] Dr. Dwight Waters Erythrocyte distribution width (RBC) [Ratio] 13.0 % Normal 11.0-15.0 [facility] Comment on above: Performed By: #### C BC #### [facility] [address] [place] [address] Dr. Dwight Waters Hematocrit (Bld) [Volume fraction] 50.0 % Normal 42.0-54.0 [facility] Comment on above: Performed By: #### C BC #### [facility] [address] [place] [address] Dr. Dwight Waters Hemoglobin (Bld) [Mass/Vol] 16.0 g/dL Normal 14.0-18.0 [facility] Comment on above: Performed By: #### C BC #### [facility] [address] [place] [address] Dr. Dwight Waters IG # 0.02 10e3/ul Normal 0.00-0.03 [facility] Comment on above: Performed By: #### C BC #### [facility] [address] [place] [address] Dr. Dwight Waters IG % 0.3 % Normal 0.0-0.5 [facility] Comment on above: Performed By: #### C BC #### [facility] [address] [place] [address] Dr. Dwight Waters LYMPH # 1.8 103/ul Normal 1.2-3.8 [facility] Comment on above: Performed By: #### C BC #### [facility] [address] [place] [address] Dr. Dwight Waters Lymphocytes/100 WBC (Bld) 26.5 % Normal 20.5-60.0 [facility] Comment on above: Performed By: #### C BC #### [facility] [address] [place] [address] Dr. Dwight Waters MANUAL DIFF REQ NO Normal [facility] Comment on above: Performed By: #### C BC #### [facility] [address] [place] [address] Dr. Dwight Waters MCH (RBC) [Entitic mass] 28.1 pg Normal 25.9-34.0 [facility] Comment on above: Performed By: #### C BC #### [facility] [address] [place] [address] Dr. Dwight Waters MCHC (RBC) [Mass/Vol] 32.0 g/dL Normal 29.9-35.2 [facility] Comment on above: Performed By: #### C BC #### [facility] [address] [place] [address] Dr. Dwight Waters MCV (RBC) [Entitic vol] 87.9 fL Normal 80.0-94.0 [facility] Comment on above: Performed By: #### C BC #### [facility] [address] [place] [address] Dr. Dwight Waters MONO # 0.5 103/ul Normal 0.3-0.8 [facility] Comment on above: Performed By: #### C BC #### [facility] [address] [place] [address] Dr. Dwight Waters Monocytes/100 WBC (Bld) 8.1 % Normal 1.7-12.0 [facility] Comment on above: Performed By: #### C BC #### [facility] [address] [place] [address] Dr. Dwight Waters NEUT # 4.0 103/ul Normal 1.4-6.5 [facility] Comment on above: Performed By: #### C BC #### [facility] [address] [place] [address] Dr. Dwight Waters Neutrophils/100 WBC (Bld) 60.8 % Normal 43.0-75.0 [facility] Comment on above: Performed By: #### C BC #### [facility] [address] [address] [address] Dwight Waters Platelet mean volume (Bld) [Entitic vol] 9.4 fL Critically low 9.5-13.5 [facility] Comment on above: Performed By: #### C BC #### [facility] [address] [address] [address] Dwight Waters PLT 265 103/ul Normal 150-450 [facility] Comment on above: Performed By: #### C BC #### [facility] [address] [address] [address] Dwight Waters RBC 5.69 106/ul Normal 4.70-6.10 [facility] Comment on above: Performed By: #### C BC #### [facility] [address] [place] [address] Dr. Dwight Waters WBC 6.6 103/ul Normal 4.0-11.0 [facility] Comment on above: Performed By: #### C BC #### [facility] [address] [place] [address] Dr. Dwigth Waters GGTon 09-15-2022 Gamma glutamyl transferase [Catalytic activity/Vol] 23 U/L Normal 15-85 [facility] Comment on above: Performed By: #### U RTPCR #### [facility] [address] [place] [address] Dr. Dwight Waters MAGNESIUMon 09-15-2022 Magnesium [Mass/Vol] 1.8 mg/dL Normal 1.8-2.4 [facility] Comment on above: Performed By: #### U RTPCR #### [facility] [address] [place] [address] Dr. Dwight Waters RENAL FUNCTION PANELon 09-15 Albumin [Mass/Vol] 4.1 g/dL Normal 3.4-5.0 [facility] Comment on above: Performed By: #### C BC #### [facility] [address] [place] [address] Dr. Dwight Waters Calcium [Mass/Vol] 9.3 mg/dL Normal 8.5-10.1 [facility] Comment on above: Performed By: #### C BC #### [facility] [address] [place] [address] Dr. Dwight Waters Chloride [Moles/Vol] 107 mmol/L Normal 98-107 [facility] Comment on above: Performed By: #### C BC #### [facility] [address] [place] [address] Dr. Dwight Waters CO2 [Moles/Vol] 25.6 mmol/L Normal 21.0-32.0 [facility] Comment on above: Performed By: #### C BC #### [facility] [address] [place] [address] Dr. Dwight Waters Creatinine [Mass/Vol] 1.01 mg/dL Normal 0.70-1.30 [facility] Comment on above: Performed By: #### C BC #### [facility] [address] [place] [address] Dr. Dwight Waters EGFR-AF DJIBOUTIAN >60 Normal >=60 [facility] Comment on above: Performed By: #### C BC #### [facility] [address] [place] [address] Dr. Dwight Waters EGFR-NON AF DJIBOUTIAN >60 Normal >=60 [facility] Comment on above: Performed By: #### C BC #### [facility] [address] [place] [address] Dr. Dwight Waters Glucose [Mass/Vol] 119 mg/dL Critically high 74-[address] [facility] Comment on above: Performed By: #### C BC #### [facility] [address] [place] [address] Dr. Dwight Waters Phosphate [Mass/Vol] 2.8 mg/dL Normal 2.6-4.7 [facility] Comment on above: Performed By: #### C BC #### [facility] [address] [place] [address] Dr. Dwight Waters Potassium [Moles/Vol] 4.0 mmol/L Normal 3.5-5.1 [facility] Comment on above: Performed By: #### C BC #### [facility] [address] [place] [address] Dr. Dwight Waters Sodium [Moles/Vol] 141 mmol/L Normal 136-145 [facility] Comment on above: Performed By: #### C BC #### [facility] [address] [place] [address] Dr. Dwigth Waters Urea nitrogen [Mass/Vol] 15.0 mg/dL Normal 7.0-18.0 [facility] Comment on above: Performed By: #### C BC #### [facility] [address] [place] [address] Dr. Dwight OLVERAOTon 09-15-2022 AST [Catalytic activity/Vol] 18 U/L Normal 15-37 [facility] Comment on above: Performed By: #### U RTPCR #### [facility] [address] [place] [address] Dr. Dwight OLVERAPTon 09-15-2022 ALT [Catalytic activity/Vol] 32 U/L Normal 16-63 [facility] Comment on above: Performed By: #### C BC #### [facility] [address] [place] [address] Dr. Dwight Waters URINE T PROTEIN CREAT RATIOo n 09-15-2022 Protein (U) [Mass/Vol] 14.1 mg/dL Critically high <=12.0 [facility] Comment on above: Performed By: #### U RTPCR #### [facility] [address] [place] [address] Dr. Dwight Waters UR PROT CREAT RAT 0.14 Normal [facility] Comment on above: Performed By: #### U RTPCR #### [facility] [address] [place] [address] Dr. Dwight Waters URINE CREAT 98.89 mg/dL Normal 20.00-300.00 [facility] Comment on above: Performed By: #### U RTPCR #### [facility] [address] [place] [address] Dr. Dwight Waters US CAROTID ART BILon [...] MÓNICA JIMENEZ Date: 2022-08-28 13:20 Normal [facility] FK506 (TACROLIMUS) WHOLE BLO ODon 08-17-2022 Tacrolimus (FK506), Blood 9.9 ng/mL Normal 2.0-20.0 [facility] Comment on above: Result Comment: Trou gh (immediately following transplant) 15.0 . Trough (steady state, 2 weeks or more after transplant): 3.0 - 8.0 . Performed by LC-MS/MS technology. Performed By: #### F [id number] #### [facility] [address] [place] [address] Dr. Dwight Waters BK VIRUS PCR QUANTon 022 BKV DNA QUANT PCR PLASMA Negative Normal Negative [facility] Comment on above: Result Comment: No B K DNA detected. . The linear range of the assay is 22 - 100,000,000 IU/mL. Performed By: #### U RTPCR #### [facility] [address] [place] [address] Dr. Dwight Waters Log10 BKV DNA Plasma Normal [facility] Comment on above: Performed By: #### U RTPCR #### [facility] [address] [place] [address] Dr. Dwight Waters ALBUMINon 08-14-2022 Albumin [Mass/Vol] 4.2 g/dL Normal 3.4-5.0 [facility] Comment on above: Performed By: #### F [id number] #### [facility] [address] [place] [address] Dr. Dwight Waters ALKALINE PHOSPHAon ALP [Catalytic activity/Vol] 92 U/L Normal 46-116 [facility] Comment on above: Performed By: #### C BC #### [facility] [address] [place] [address] Dr. Dwight Waters BILIRUBIN CONJUGATED (DIRECT )on 08-14-2022 BILI, CONJUGATED 0.3 mg/dL Critically high 0.0-0.2 [facility] Comment on above: Performed By: #### F [id number] #### [facility] [address] [place] [address] Dr. Dwight Waters BILIRUBIN TOTALon 08-14-2022 Bilirubin [Mass/Vol] 1.5 mg/dL Critically high 0.2-1.0 [facility] Comment on above: Performed By: #### F [id number] #### [facility] [address] [place] [address] Dr. Dwight Waters BUNon 08-14-2022 Urea nitrogen [Mass/Vol] 11.0 mg/dL Normal 7.0-18.0 [facility] Comment on above: Performed By: #### C BC #### [facility] [address] [place] [address] Dr. Dwight Waters CALCIUMon 08-14-2022 Calcium [Mass/Vol] 9.4 mg/dL Normal 8.5-10.1 [facility] Comment on above: Performed By: #### F [id number] #### [facility] [address] [place] [address] Dr. Dwight Waters CBC AUTO DIFFon 08-14-2022 BASO # 0.0 103/ul Normal 0.0-0.1 [facility] Comment on above: Performed By: #### C MP #### [facility] [address] [place] [address] Dr. Dwight Waters Basophils/100 WBC (Bld) 0.5 % Normal 0.2-2.0 [facility] Comment on above: Performed By: #### C MP #### [facility] [address] [place] [address] Dr. Dwight Waters EO # 0.2 103/ul Normal 0.0-0.7 [facility] Comment on above: Performed By: #### C MP #### [facility] [address] [place] [address] Dr. Dwight Waters Eosinophils/100 WBC (Bld) 2.6 % Normal 0.9-7.0 [facility] Comment on above: Performed By: #### C MP #### [facility] [address] [place] [address] Dr. Dwight Waters Erythrocyte distribution width (RBC) [Ratio] 13.1 % Normal 11.0-15.0 [facility] Comment on above: Performed By: #### C MP #### [facility] [address] [place] [address] Dr. Dwight Waters Hematocrit (Bld) [Volume fraction] 47.0 % Normal 42.0-54.0 [facility] Comment on above: Performed By: #### C MP #### [facility] [address] [place] [address] Dr. Dwight Waters Hemoglobin (Bld) [Mass/Vol] 15.3 g/dL Normal 14.0-18.0 [facility] Comment on above: Performed By: #### C MP #### [facility] [address] [place] [address] Dr. Dwight Waters IG # 0.01 10e3/ul Normal 0.00-0.03 [facility] Comment on above: Performed By: #### C MP #### [facility] [address] [place] [address] Dr. Dwight Waters IG % 0.1 % Normal 0.0-0.5 [facility] Comment on above: Performed By: #### C MP #### [facility] [address] [place] [address] Dr. Dwight Waters LYMPH # 2.3 103/ul Normal 1.2-3.8 [facility] Comment on above: Performed By: #### C MP #### [facility] [address] [place] [address] Dr. Dwight Waters Lymphocytes/100 WBC (Bld) 29.8 % Normal 20.5-60.0 [facility] Comment on above: Performed By: #### C MP #### [facility] [address] [place] [address] Dr. Dwight Waters MANUAL DIFF REQ NO Normal [facility] Comment on above: Performed By: #### C MP #### [facility] [address] [place] [address] Dr. Dwight Waters MCH (RBC) [Entitic mass] 28.2 pg Normal 25.9-34.0 [facility] Comment on above: Performed By: #### C MP #### [facility] [address] [place] [address] Dr. Dwight Waters MCHC (RBC) [Mass/Vol] 32.6 g/dL Normal 29.9-35.2 [facility] Comment on above: Performed By: #### C MP #### [facility] [address] [place] [address] Dr. Dwight Waters MCV (RBC) [Entitic vol] 86.7 fL Normal 80.0-94.0 [facility] Comment on above: Performed By: #### C MP #### [facility] [address] [place] [address] Dr. Dwight Waters MONO # 0.7 103/ul Normal 0.3-0.8 [facility] Comment on above: Performed By: #### C MP #### [facility] [address] [place] [address] Dr. Dwight Waters Monocytes/100 WBC (Bld) 8.5 % Normal 1.7-12.0 [facility] Comment on above: Performed By: #### C MP #### [facility] [address] [place] [address] Dr. Dwight Waters NEUT # 4.5 103/ul Normal 1.4-6.5 [facility] Comment on above: Performed By: #### C MP #### [facility] [address] [place] [address] Dr. Dwight Waters Neutrophils/100 WBC (Bld) 58.5 % Normal 43.0-75.0 [facility] Comment on above: Performed By: #### C MP #### [facility] [address] [place] [address] Dr. Dwight Waters Platelet mean volume (Bld) [Entitic vol] 9.7 fL Normal 9.5-13.5 [facility] Comment on above: Performed By: #### C MP #### [facility] [address] [place] [address] Dr. Dwight Waters PLT 266 103/ul Normal 150-450 [facility] Comment on above: Performed By: #### C MP #### [facility] [address] [place] [address] Dr. Dwight Waters RBC 5.42 106/ul Normal 4.70-6.10 [facility] Comment on above: Performed By: #### C MP #### [facility] [address] [place] [address] Dr. Dwight Waters WBC 7.6 103/ul Normal 4.0-11.0 [facility] Comment on above: Performed By: #### C MP #### [facility] [address] [place] [address] Dr. Dwight Waters CHLORIDEon 08-14-2022 Chloride [Moles/Vol] 104 mmol/L Normal 98-107 [facility] Comment on above: Performed By: #### C BC #### [facility] [address] [place] [address] Dr. Dwight Waters CO2on 08-14-2022 CO2 [Moles/Vol] 27.9 mmol/L Normal 21.0-32.0 [facility] Comment on above: Performed By: #### C BC #### [facility] [address] [place] [address] Dr. Dwight Waters CREATININEon 08-14-2022 Creatinine [Mass/Vol] 1.08 mg/dL Normal 0.70-1.30 [facility] Comment on above: Performed By: #### C BC #### [facility] [address] [place] [address] Dr. Dwight Waters EGFR-AF DJIBOUTIAN >60 Normal >=60 [facility] Comment on above: Performed By: #### C BC #### [facility] [address] [place] [address] Dr. Dwight Waters EGFR-NON AF DJIBOUTIAN >60 Normal >=60 [facility] Comment on above: Performed By: #### C BC #### [facility] [address] [place] [address] Dr. Dwight Waters GGTon 08-14-2022 Gamma glutamyl transferase [Catalytic activity/Vol] 24 U/L Normal 15-85 [facility] Comment on above: Performed By: #### F [id number] #### [facility] [address] [place] [address] Dr. Dwight Waters GLUCOSE BLOODon 08-14-2022 Glucose [Mass/Vol] 111 mg/dL Critically high 74-106 [facility] Comment on above: Performed By: #### C BC #### [facility] [address] [place] [address] Dr. Dwight Waters MAGNESIUMon 08-14-2022 Magnesium [Mass/Vol] 1.4 mg/dL Critically low 1.8-2.4 [facility] Comment on above: Performed By: #### C BC #### [facility] [address] [place] [address] Dr. Dwight Waters NAon 08-14-2022 Sodium [Moles/Vol] 140 mmol/L Normal 136-145 [facility] Comment on above: Performed By: #### F [id number] #### [facility] [address] [place] [address] Dr. Dwight Waters PHOSPHORUSon 08-14-2022 Phosphate [Mass/Vol] 3.1 mg/dL Normal 2.6-4.7 [facility] Comment on above: Performed By: #### C BC #### [facility] [address] [place] [address] Dr. Dwight Waters POTASSIUMon 08-14-2022 Potassium [Moles/Vol] 3.5 mmol/L Normal 3.5-5.1 [facility] Comment on above: Performed By: #### C BC #### [facility] [address] [place] [address] Dr. Dwight Waters SGOTon 08-14-2022 AST [Catalytic activity/Vol] 17 U/L Normal 15-37 [facility] Comment on above: Performed By: #### F [id number] #### [facility] [address] [place] [address] Dr. Dwight Waters SGPTon 08-14-2022 ALT [Catalytic activity/Vol] 22 U/L Normal 16-63 [facility] Comment on above: Performed By: #### F [id number] #### [facility] [address] [place] [address] Dr. Dwight Waters URINE T PROTEIN CREAT RATIOo n 08-14-2022 Protein (U) [Mass/Vol] 10.7 mg/dL Normal <=12.0 [facility] Comment on above: Performed By: #### F [id number] #### [facility] [address] [place] [address] Dr. Dwight Waters UR PROT CREAT RAT 0.10 Normal [facility] Comment on above: Performed By: #### F [id number] #### [facility] [address] [place] [address] Dr. Dwight Waters URINE CREAT 104.28 mg/dL Normal 20.00-300.00 [facility] Comment on above: Performed By: #### F [id number] #### [facility] [address] [place] [address] Dr. Dwight Waters NEPHROSTOMY TUBE REMOVALon 0 [...] Assisting physician present for entire procedure: yes [facility] Radiology Study observation (narrative) [facility] FK506 (TACROLIMUS) WHOLE BLO ODon 07-06-2022 Tacrolimus (FK506), Blood 9.5 ng/mL Normal 2.0-20.0 [facility] Comment on above: Result Comment: Trou gh (immediately following transplant) 15.0 . Trough (steady state, 2 weeks or more after transplant): 3.0 - 8.0 . Performed by LC-MS/MS technology. Performed By: #### C MP #### [facility] [address] [place] [address] Dr. Dwight Waters ALBUMINon 07-03-2022 Albumin [Mass/Vol] 3.7 g/dL Normal 3.4-5.0 [facility] Comment on above: Performed By: #### U RTPCR #### [facility] [address] [place] [address] Dr. Dwight Waters ALKALINE PHOSPHAon ALP [Catalytic activity/Vol] 76 U/L Normal 46-116 [facility] Comment on above: Performed By: #### U RTPCR #### [facility] [address] [place] [address] Dr. Dwight Waters BILIRUBIN CONJUGATED (DIRECT )on 07-03-2022 BILI, CONJUGATED 0.3 mg/dL Critically high 0.0-0.2 [facility] Comment on above: Performed By: #### C BC #### [facility] [address] [place] [address] Dr. Dwight Waters BILIRUBIN TOTALon 07-03-2022 Bilirubin [Mass/Vol] 1.4 mg/dL Critically high 0.2-1.0 [facility] Comment on above: Performed By: #### C BC #### [facility] [address] [place] [address] Dr. Dwight Waters BUNon 07-03-2022 Urea nitrogen [Mass/Vol] 15.0 mg/dL Normal 7.0-18.0 [facility] Comment on above: Performed By: #### C BC #### [facility] [address] [place] [address] Dr. Dwight Waters CALCIUMon 07-03-2022 Calcium [Mass/Vol] 9.4 mg/dL Normal 8.5-10.1 [facility] Comment on above: Performed By: #### U RTPCR #### [facility] [address] [place] [address] Dr. Dwight Waters CBC AUTO DIFFon 07-03-2022 BASO # 0.0 103/ul Normal 0.0-0.1 [facility] Comment on above: Performed By: #### U RTPCR #### [facility] [address] [place] [address] Dr. Dwight Waters Basophils/100 WBC (Bld) 0.6 % Normal 0.2-2.0 [facility] Comment on above: Performed By: #### U RTPCR #### [facility] [address] [place] [address] Dr. Dwight Waters EO # 0.2 103/ul Normal 0.0-0.7 [facility] Comment on above: Performed By: #### U RTPCR #### [facility] [address] [place] [address] Dr. Dwight Waters Eosinophils/100 WBC (Bld) 3.5 % Normal 0.9-7.0 [facility] Comment on above: Performed By: #### U RTPCR #### [facility] [address] [place] [address] Dr. Dwight Waters Erythrocyte distribution width (RBC) [Ratio] 12.9 % Normal 11.0-15.0 [facility] Comment on above: Performed By: #### U RTPCR #### [facility] [address] [place] [address] Dr. Dwight Waters Hematocrit (Bld) [Volume fraction] 44.2 % Normal 42.0-54.0 [facility] Comment on above: Performed By: #### U RTPCR #### [facility] [address] [place] [address] Dr. Dwight Waters Hemoglobin (Bld) [Mass/Vol] 14.6 g/dL Normal 14.0-18.0 [facility] Comment on above: Performed By: #### U RTPCR #### [facility] [address] [place] [address] Dr. Dwight Waters IG # 0.02 10e3/ul Normal 0.00-0.03 [facility] Comment on above: Performed By: #### U RTPCR #### [facility] [address] [place] [address] Dr. Dwight Waters IG % 0.3 % Normal 0.0-0.5 [facility] Comment on above: Performed By: #### U RTPCR #### [facility] [address] [place] [address] Dr. Dwight Waters LYMPH # 2.0 103/ul Normal 1.2-3.8 [facility] Comment on above: Performed By: #### U RTPCR #### [facility] [address] [place] [address] Dr. Dwight Waters Lymphocytes/100 WBC (Bld) 28.4 % Normal 20.5-60.0 [facility] Comment on above: Performed By: #### U RTPCR #### [facility] [address] [place] [address] Dr. Dwight Waters MANUAL DIFF REQ NO Normal [facility] Comment on above: Performed By: #### U RTPCR #### [facility] [address] [place] [address] Dr. Dwight Waters MCH (RBC) [Entitic mass] 28.6 pg Normal 25.9-34.0 [facility] Comment on above: Performed By: #### U RTPCR #### [facility] [address] [place] [address] Dr. Dwight Waters MCHC (RBC) [Mass/Vol] 33.0 g/dL Normal 29.9-35.2 [facility] Comment on above: Performed By: #### U RTPCR #### [facility] [address] [place] [address] Dr. Dwight Waters MCV (RBC) [Entitic vol] 86.7 fL Normal 80.0-94.0 [facility] Comment on above: Performed By: #### U RTPCR #### [facility] [address] [place] [address] Dr. Dwight Waters MONO # 0.6 103/ul Normal 0.3-0.8 [facility] Comment on above: Performed By: #### U RTPCR #### [facility] [address] [place] [address] Dr. Dwight Waters Monocytes/100 WBC (Bld) 9.1 % Normal 1.7-12.0 [facility] Comment on above: Performed By: #### U RTPCR #### [facility] [address] [place] [address] Dr. Dwight Waters NEUT # 4.0 103/ul Normal 1.4-6.5 [facility] Comment on above: Performed By: #### U RTPCR #### [facility] [address] [place] [address] Dr. Dwight Waters Neutrophils/100 WBC (Bld) 58.1 % Normal 43.0-75.0 [facility] Comment on above: Performed By: #### U RTPCR #### [facility] [address] [place] [address] Dr. Dwight Waters Platelet mean volume (Bld) [Entitic vol] 9.5 fL Normal 9.5-13.5 [facility] Comment on above: Performed By: #### U RTPCR #### [facility] [address] [place] [address] Dr. Dwight Waters PLT 292 103/ul Normal 150-450 [facility] Comment on above: Performed By: #### U RTPCR #### [facility] [address] [place] [address] Dr. Dwight Waters RBC 5.10 106/ul Normal 4.70-6.10 [facility] Comment on above: Performed By: #### U RTPCR #### [facility] [address] [place] [address] Dr. Dwight Waters WBC 6.9 103/ul Normal 4.0-11.0 [facility] Comment on above: Performed By: #### U RTPCR #### [facility] [address] [place] [address] Dr. Dwight Waters CHLORIDEon 07-03-2022 Chloride [Moles/Vol] 108 mmol/L Critically high 98-107 [facility] Comment on above: Performed By: #### C BC #### [facility] [address] [place] [address] Dr. Dwight Waters CO2on 07-03-2022 CO2 [Moles/Vol] 25.2 mmol/L Normal 21.0-32.0 [facility] Comment on above: Performed By: #### C BC #### [facility] [address] [place] [address] Dr. Dwight Waters CREATININEon 07-03-2022 Creatinine [Mass/Vol] 1.03 mg/dL Normal 0.70-1.30 [facility] Comment on above: Performed By: #### U RTPCR #### [facility] [address] [place] [address] Dr. Dwight Waters EGFR-AF DJIBOUTIAN >60 Normal >=60 [facility] Comment on above: Performed By: #### U RTPCR #### [facility] [address] [place] [address] Dr. Dwight Waters EGFR-NON AF DJIBOUTIAN >60 Normal >=60 [facility] Comment on above: Performed By: #### U RTPCR #### [facility] [address] [place] [address] Dr. Dwight Waters GGTon 07-03-2022 Gamma glutamyl transferase [Catalytic activity/Vol] 31 U/L Normal 15-85 [facility] Comment on above: Performed By: #### U RTPCR #### [facility] [address] [place] [address] Dr. Dwight Waters GLUCOSE BLOODon 07-03-2022 Glucose [Mass/Vol] 119 mg/dL Critically high 74-106 [facility] Comment on above: Performed By: #### U RTPCR #### [facility] [address] [place] [address] Dr. Dwight Waters MAGNESIUMon 07-03-2022 Magnesium [Mass/Vol] 1.4 mg/dL Critically low 1.8-2.4 [facility] Comment on above: Performed By: #### C BC #### [facility] [address] [place] [address] Dr. Dwight Waters NAon 07-03-2022 Sodium [Moles/Vol] 142 mmol/L Normal 136-145 [facility] Comment on above: Performed By: #### C MP #### [facility] [address] [place] [address] Dr. Dwight Waters PHOSPHORUSon 07-03-2022 Phosphate [Mass/Vol] 3.4 mg/dL Normal 2.6-4.7 [facility] Comment on above: Performed By: #### C BC #### [facility] [address] [place] [address] Dr. Dwight Waters POTASSIUMon 07-03-2022 Potassium [Moles/Vol] 4.1 mmol/L Normal 3.5-5.1 [facility] Comment on above: Performed By: #### C BC #### [facility] [address] [place] [address] Dr. Dwight Waters SGOTon 07-03-2022 AST [Catalytic activity/Vol] 14 U/L Critically low 15-37 [facility] Comment on above: Performed By: #### C BC #### [facility] [address] [place] [address] Dr. Dwight Waters SGPTon 07-03-2022 ALT [Catalytic activity/Vol] 25 U/L Normal 16-63 [facility] Comment on above: Performed By: #### C BC #### [facility] [address] [place] [address] Dr. Dwight Waters US KIDNEYSon 07-03-2022 US KIDNEYS Ultrasound kidneys, bilateral HISTORY: Transplant of kidney , pain in the right lower quadrant COMPARISON: None. TECHNIQUE: Transabdominal ultrasound imaging of both kidneys was performed. FINDINGS: The [place] kidneys are diffusely echogenic and atrophic with cortical thinning. The right kidney measures 8.3 x 3.5 x 4.07 m and the left measures 9.9 x 3.8 x 3.6 cm. No hydronephrosis of the [place] kidneys. There is a renal transplant in [...] stone involving the renal transplant. 2. Atrophic [place] kidneys. 3. Normal bladder. Electronically authenticated by: ARCELIA PIZARRO Date: 2022-07-03 17:[address] [facility] [address] Abdomen and Pelvis WO con traston 06-27-2022 IMPRESSION: 1. Both [place] kidneys are atrophic with improvement in right-sided [...] Adrenals: Adrenal glands are unremarkable. Kidneys: Both [place] kidneys are atrophic. Interval improvement in right [place] kidney hydronephrosis since May 15, 2022. Status [...] Adrenals: Adrenal glands are unremarkable. Kidneys: Both [place] kidneys are atrophic. Interval improvement in right [place] kidney hydronephrosis since May 15, 2022. Status [...] aggressive osseous lesions. IMPRESSION IMPRESSION: 1. Both [place] kidneys are atrophic with improvement in right-sided hydronephrosis since May 15, 2022. 2. 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 No hydronephrosis. No discrete perinephric collection. 3. Partially imaged postsurgical changes related to prior liver transplant. 4. The bladder is decompressed, limiting evaluation. [facility] Radiology Study observation (narrative) [facility] CT Abdomen and Pelvis WO con trastOrdered By: Gera Lu on 06-27-[address] [facility] Work Phone: CBC AUTO DIFFon 06-18-2022 BASO # 0.0 103/ul Normal 0.0-0.1 [facility] Comment on above: Performed By: #### U RTPCR #### [facility] [address] [place] [address] Dr. Dwight Waters Basophils/100 WBC (Bld) 0.5 % Normal 0.2-2.0 [facility] Comment on above: Performed By: #### U RTPCR #### [facility] [address] [place] [address] Dr. Dwight Waters EO # 0.2 103/ul Normal 0.0-0.7 [facility] Comment on above: Performed By: #### U RTPCR #### [facility] [address] [place] [address] Dr. Dwight Waters Eosinophils/100 WBC (Bld) 2.3 % Normal 0.9-7.0 [facility] Comment on above: Performed By: #### U RTPCR #### [facility] [address] [address] [address] Dwight Waters Erythrocyte distribution width (RBC) [Ratio] 12.9 % Normal 11.0-15.0 [facility] Comment on above: Performed By: #### U RTPCR #### [facility] [address] [place] [address] Dr. Dwight Waters Hematocrit (Bld) [Volume fraction] 41.2 % Critically low 42.0-54.0 [facility] Comment on above: Performed By: #### U RTPCR #### [facility] [address] [place] [address] Dr. Dwight Waters Hemoglobin (Bld) [Mass/Vol] 13.3 g/dL Critically low 14.0-18.0 [facility] Comment on above: Performed By: #### U RTPCR #### [facility] [address] [place] [address] Dr. Dwight Waters IG # 0.04 10e3/ul Critically high 0.00-0.03 [facility] Comment on above: Performed By: #### U RTPCR #### [facility] [address] [place] [address] Dr. Dwight Waters IG % 0.5 % Normal 0.0-0.5 [facility] Comment on above: Performed By: #### U RTPCR #### [facility] [address] [place] [address] Dr. Dwight Waters LYMPH # 2.0 103/ul Normal 1.2-3.8 [facility] Comment on above: Performed By: #### U RTPCR #### [facility] [address] [place] [address] Dr. Dwight Waters Lymphocytes/100 WBC (Bld) 22.9 % Normal 20.5-60.0 [facility] Comment on above: Performed By: #### U RTPCR #### [facility] [address] [address] [address] Dwight Waters MANUAL DIFF REQ NO Normal [facility] Comment on above: Performed By: #### U RTPCR #### [facility] [address] [place] [address] Dr. Dwigth Waters MCH (RBC) [Entitic mass] 28.7 pg Normal 25.9-34.0 [facility] Comment on above: Performed By: #### U RTPCR #### [facility] [address] [place] [address] Dr. Dwight Waters MCHC (RBC) [Mass/Vol] 32.3 g/dL Normal 29.9-35.2 [facility] Comment on above: Performed By: #### U RTPCR #### [facility] [address] [place] [address] Dr. Dwight Waters MCV (RBC) [Entitic vol] 88.8 fL Normal 80.0-94.0 [facility] Comment on above: Performed By: #### U RTPCR #### [facility] [address] [place] [address] Dr. Dwight Waters MONO # 0.8 103/ul Normal 0.3-0.8 [facility] Comment on above: Performed By: #### U RTPCR #### [facility] [address] [place] [address] Dr. Dwight Waters Monocytes/100 WBC (Bld) 9.7 % Normal 1.7-12.0 [facility] Comment on above: Performed By: #### U RTPCR #### [facility] [address] [place] [address] Dr. Dwight Waters NEUT # 5.6 103/ul Normal 1.4-6.5 [facility] Comment on above: Performed By: #### U RTPCR #### [facility] [address] [place] [address] Dr. Dwight Waters Neutrophils/100 WBC (Bld) 64.1 % Normal 43.0-75.0 [facility] Comment on above: Performed By: #### U RTPCR #### [facility] [address] [place] [address] Dr. Dwight Waters Platelet mean volume (Bld) [Entitic vol] 10.0 fL Normal 9.5-13.5 [facility] Comment on above: Performed By: #### U RTPCR #### [facility] [address] [place] [address] Dr. Dwight Waters PLT 270 103/ul Normal 150-450 [facility] Comment on above: Performed By: #### U RTPCR #### [facility] [address] [address] [address] Dwight Waters RBC 4.64 106/ul Critically low 4.70-6.10 [facility] Comment on above: Performed By: #### U RTPCR #### [facility] [address] [place] [address] Dr. Dwight Waters WBC 8.7 103/ul Normal 4.0-11.0 [facility] Comment on above: Performed By: #### U RTPCR #### [facility] [address] [place] [address] Dr. Dwight Waters CULTURE URINEon 06-18-2022 CULTURE URINE Culture Observations : NO GROWTH. Normal [facility] Comment on above: Performed By: #### U RTPCR #### [facility] [address] [place] [address] Dr. Dwight Waters Covid-19 PCR (CVDTBH)on 05-31 SARS-CoV-2 (COVID-19) RNA ESTELITA+probe Ql (Unsp spec) Not detected Normal NOT DETECTED [facility] Comment on above: Result Comment: When [...] for this test is supported by the Clinical Laboratory Medical Director of Health and Human Service's declaration [...] used). Performed By: #### C BC #### [facility] [address] [place] [address] Dr. Dwight Waters ER URINE PROFILEon 2 Bilirubin Ql (U) Negative Normal NEGATIVE [facility] Comment on above: Performed By: #### U RTPCR #### [facility] [address] [place] [address] Dr. Dwight Waters Clarity (U) CLEAR Normal CLEAR [facility] Comment on above: Performed By: #### U RTPCR #### [facility] [address] [place] [address] Dr. Dwight Waters Color (U) YELLOW Normal YELLOW [facility] Comment on above: Performed By: #### U RTPCR #### [facility] [address] [place] [address] Dr. Dwight Waters ERUAHD A micrscopic examina tion will be performed if indicated. Normal [facility] Comment on above: Performed By: #### U RTPCR #### [facility] [address] [place] [address] Dr. Dwight Waters Glucose Ql (U) Negative Normal NEGATIVE [facility] Comment on above: Performed By: #### U RTPCR #### [facility] [address] [place] [address] Dr. Dwight Waters Hemoglobin Ql (U) LARGE Abnormal NEGATIVE [facility] Comment on above: Performed By: #### U RTPCR #### [facility] [address] [place] [address] Dr. Dwight Waters Ketones Ql (U) Negative Normal NEGATIVE [facility] Comment on above: Performed By: #### U RTPCR #### [facility] [address] [place] [address] Dr. Dwight Waters LEUKOCYTES TRACE Abnormal NEGATIVE [facility] Comment on above: Performed By: #### U RTPCR #### [facility] [address] [place] [address] Dr. Dwight Waters Nitrite Ql (U) Negative Normal NEGATIVE [facility] Comment on above: Performed By: #### U RTPCR #### [facility] [address] [place] [address] Dr. Dwight Waters pH (U) 6.0 [pH] Normal 5-9 [facility] Comment on above: Performed By: #### U RTPCR #### [facility] [address] [place] [address] Dr. Dwight Waters Protein (U) [Mass/Vol] 30 mg/dL Abnormal NEGATIVE/ TRACE [facility] Comment on above: Performed By: #### U RTPCR #### [facility] [address] [place] [address] Dr. Dwight Waters SPEC GRAVITY >=1.030 Abnormal 1.005-<=1.02 5 [facility] Comment on above: Performed By: #### U RTPCR #### [facility] [address] [place] [address] Dr. Dwight Waters UR MICRO IND INDICATED Normal [facility] Comment on above: Performed By: #### U RTPCR #### [facility] [address] [place] [address] Dr. Dwight Waters Urobilinogen Qn (U) 0.2 {Alyssa'U}/dL Normal 0.2 - 1. 0 [facility] Comment on above: Performed By: #### U RTPCR #### [facility] [address] [place] [address] Dr. Dwight Waters PROF 14(COMP METB)on 022 Albumin [Mass/Vol] 3.7 g/dL Normal 3.4-5.0 [facility] Comment on above: Performed By: #### C MP #### [facility] [address] [place] [address] Dr. Dwight Waters Albumin/Globulin [Mass ratio] 0.9 {ratio} Normal [facility] Comment on above: Performed By: #### C MP #### [facility] [address] [place] [address] Dr. Dwight Waters ALP [Catalytic activity/Vol] 80 U/L Normal 46-116 [facility] Comment on above: Performed By: #### C MP #### [facility] [address] [place] [address] Dr. Dwight Waters ALT [Catalytic activity/Vol] 24 U/L Normal 16-63 [facility] Comment on above: Performed By: #### C MP #### [facility] [address] [place] [address] Dr. Dwight Waters Anion gap [Moles/Vol] 12.9 mmol/L Normal [facility] Comment on above: Performed By: #### C MP #### [facility] [address] [place] [address] Dr. Dwight Waters AST [Catalytic activity/Vol] 17 U/L Normal 15-37 [facility] Comment on above: Performed By: #### C MP #### [facility] [address] [place] [address] Dr. Dwight Waters Bilirubin [Mass/Vol] 0.8 mg/dL Normal 0.2-1.0 [facility] Comment on above: Performed By: #### C MP #### [facility] [address] [place] [address] Dr. Dwight Waters Calcium [Mass/Vol] 9.4 mg/dL Normal 8.5-10.1 [facility] Comment on above: Performed By: #### C MP #### [facility] [address] [place] [address] Dr. Dwight Waters Chloride [Moles/Vol] 106 mmol/L Normal 98-107 [facility] Comment on above: Performed By: #### C MP #### [facility] [address] [place] [address] Dr. Dwight Waters CO2 [Moles/Vol] 25.3 mmol/L Normal 21.0-32.0 [facility] Comment on above: Performed By: #### C MP #### [facility] [address] [place] [address] Dr. Dwight Waters Creatinine [Mass/Vol] 1.29 mg/dL Normal 0.70-1.30 [facility] Comment on above: Performed By: #### C MP #### [facility] [address] [address] [address] Dwight Waters EGFR-AF DJIBOUTIAN >60 Normal >=60 [facility] Comment on above: Performed By: #### C MP #### [facility] [address] [address] [address] Dwight Waters EGFR-NON AF DJIBOUTIAN 59 mL/min/1.73m2 Critically low >=60 [facility] Comment on above: Performed By: #### C MP #### [facility] [address] [address] [address] Dwight Waters Globulin (S) [Mass/Vol] 4.2 g/dL Normal [facility] Comment on above: Performed By: #### C MP #### [facility] [address] [place] [address] Dr. Dwight Waters Glucose [Mass/Vol] 106 mg/dL Normal 74-106 [facility] Comment on above: Performed By: #### C MP #### [facility] [address] [address] [address] Dwight Waters Potassium [Moles/Vol] 4.2 mmol/L Normal 3.5-5.1 [facility] Comment on above: Performed By: #### C MP #### [facility] [address] [address] [address] Dwight Waters Protein [Mass/Vol] 7.9 g/dL Normal 6.4-8.2 [facility] Comment on above: Performed By: #### C MP #### [facility] [address] [address] [address] Dwight Waters Sodium [Moles/Vol] 140 mmol/L Normal 136-145 [facility] Comment on above: Performed By: #### C MP #### [facility] [address] [address] [address] Dwight Waters Urea nitrogen [Mass/Vol] 22.0 mg/dL Critically high 7.0-18.0 [facility] Comment on above: Performed By: #### C MP #### [facility] [address] [place] [address] Dr. Dwight Waters Urea nitrogen/Creatinine [Mass ratio] 17.1 mg/mg Normal [facility] Comment on above: Performed By: #### C MP #### [facility] [address] [place] [address] Dr. Dwight Waters URINE MICROSCOPIC ONLYon BACTERIA TRACE Abnormal NONE SEEN [facility] Comment on above: Performed By: #### U RTPCR #### [facility] [address] [place] [address] Dr. Dwight Waters Bacteria identified Cx Nom (U) INDICATED Normal [facility] Comment on above: Performed By: #### U RTPCR #### [facility] [address] [place] [address] Dr. Dwight Waters CAST NONE SEEN Normal NONE SEEN [facility] Comment on above: Performed By: #### U RTPCR #### [facility] [address] [place] [address] Dr. Dwight Waters Crystals LM Nom (Urine sed) NONE SEEN Normal NONE SEEN [facility] Comment on above: Performed By: #### U RTPCR #### [facility] [address] [place] [address] Dr. Dwight Waters Epithelial cells LM Ql (Urine sed) NONE SEEN Normal NONE SEEN /RARE [facility] Comment on above: Performed By: #### U RTPCR #### [facility] [address] [place] [address] Dr. Dwight Waters MUCOUS NONE SEEN Normal NONE SEEN [facility] Comment on above: Performed By: #### U RTPCR #### [facility] [address] [place] [address] Dr. Dwight Waters RBC 5-10 Abnormal 0-2 [facility] Comment on above: Performed By: #### U RTPCR #### [facility] [address] [place] [address] Dr. Dwight Waters WBC 10-20 Abnormal NONE SEEN [facility] Comment on above: Performed By: #### U RTPCR #### [facility] [address] [address] [address] Dwight Waters ALLOSCREEN RECIPIENT (POST T X PRA)on 06-13-2022 AB SPECIFICITY CLASS COMMENT Antibody Specificity testing performed by [employer]. cPRA calculation based on identification of HLA antibody specificities at MFI >2000 and/or presence of CREG antibodies. [facility] Comment on above: Some of the reagents used for testing in the Clinical Histocompatibility Laboratory have yet to be approved by the FDA. Our certification by CLIA to perform high complexity tests allows us to use these reagents in the context of a stringent QC program, and obviates the need for FDA approval.Testing performed by the [facility] Clinical Histocompatibility Laboratory. [facility] number: [id number]. CLIA number: [id number], Director: Carlito Merchant, PhD, D([facility]). ANTIBODY SPECIFICITY INTERPRETATION Detected [facility] CLASS I SPECIFICITIES Not detected [facility] CLASS II SPECIFICITIES Not detected [facility] HLA Ab (S) 0 % 0 [facility] EXTRA MICROon 06-13-[address] [facility] URINE CULTUREOrdered By: Jah Upton on 06-13-2022 Bacteria identified Cx Nom (Unsp spec) Growth [facility] Bacteria identified Cx Nom (Unsp spec) 10,000-50,000 CFU/mL Mixed skin shimon [facility] Comment on above: Multiple bacterial m orphotypes present. Suggest appropriate recollection if clinically indicated. [facility] CBC,PLATELETSon 06-12-2022 Erythrocyte distribution width (RBC) [Ratio] 13.0 % 10.9 - 14.3 % [facility] Hematocrit (Bld) [Volume fraction] 43.2 % 39.6 - 48.8 % [facility] Hemoglobin (Bld) [Mass/Vol] 13.9 g/dL 13.4 - 16.8 g/dL [facility] Interpretation and review of laboratory results Normal [facility] MCH (RBC) [Entitic mass] 28.7 pg 26.1 - 33.[address] [facility] MCHC (RBC) [Mass/Vol] 32.2 g/dL 31.9 - 36.5 g/dL [facility] MCV (RBC) [Entitic vol] 89.1 fL 79.0 - 94.[address] [facility] Platelet mean volume (Bld) [Entitic vol] 10.5 fL 8.7 - 12.[address] [facility] Platelets (Bld) [#/Vol] 269 10*3/uL 146 - 337 K/uL [facility] RBC (Bld) [#/Vol] 4.85 10*6/uL [facility] WBC (Bld) [#/Vol] 7.68 10*3/uL 3.73 - 10. 10 K/uL [facility] CHEM 7 (LYTES,BUN,CREA,GLUC) on 06-12-2022 Anion gap [Moles/Vol] 14 mmol/L 7 - 17 mmol/L [facility] Chloride [Moles/Vol] 106 mmol/L 98 - 10 8 mmol/L [facility] CO2 [Moles/Vol] 25 mmol/L 21 - 31 mmol/L [facility] Creatinine [Mass/Vol] 1.26 mg/dL 0.70 - 1.30 mg/dL [facility] GFR/1.73 sq M.predicted CKD-EPI (S/P/Bld) [Vol rate/Area] 69 >=60 mL/min/1.73m [address] [facility] Comment on above: Reported eGFR is bas ed on the CKD-EPI 2020 equation using creatinine, age, and sex. Glucose [Mass/Vol] 83 mg/dL 70 - 99 mg/dL [facility] Osmolality Calc [O[facility]olality] [facility] Potassium [Moles/Vol] 3.8 mmol/L 3.5 - 5.0 mmol/L [facility] Sodium [Moles/Vol] 141 mmol/L 135 - 145 mmol/L [facility] Urea nitrogen [Mass/Vol] 18 mg/dL 7 - 25 mg/dL [facility] Urea nitrogen/Creatinine [Mass ratio] 14 mg/mg [facility] GGTon 06-12-2022 Gamma glutamyl transferase [Catalytic activity/Vol] 20 U/L 8 - 64 U/L [facility] HEMOGLOBIN [id number] By: [employer] on 06-12-2022 Average glucose Estimated from glycated hemoglobin (Bld) [Mass/Vol] 126 mg/dL [facility] HbA1c (Bld) [Mass fraction] 6.0 % High 4.7 - 5.6 % [facility] Interpretation and review of laboratory results Abnormal [facility] HEPATIC FUNCTION PANELon Albumin [Mass/Vol] 4.3 g/dL 3.5 - 5.0 g/dL [facility] ALP [Catalytic activity/Vol] 78 U/L 32 - 126 U/L [facility] ALT [Catalytic activity/Vol] 12 U/L 10 - 52 U/L [facility] AST [Catalytic activity/Vol] 16 U/L 10 - 39 U/L [facility] Bilirubin [Mass/Vol] 1.0 mg/dL <1.[address] [facility] Bilirubin.direct [Mass/Vol] 0.2 mg/dL <0.[address] [facility] Protein [Mass/Vol] 7.5 g/dL 6.4 - 8.3 g/dL [facility] No Panel Informationon 06-12 Interpretation and review of laboratory results Normal [facility] PTH INTACTOrdered By: Marli Lizarraga on 06-12-2022 Interpretation and review of laboratory results Abnormal [facility] Parathyrin.intact [Mass/Vol] 79.7 pg/mL High 14.0 - 72.0 pg/mL [facility] URINALYSIS REFLEX TO CULTURE PERFORMABLEon 06-12-2022 Appearance (U) Clear Clear [facility] Bacteria LM Ql (Urine sed) ABSENT ABSENT [facility] Color (U) Yellow Yellow [facility] Epithelial cells.squamous LM Ql (Urine sed) 1/hpf = 1+ 1/hpf = 1+, 2-5/hpf = 2+, 0/hpf = 0+, ABSENT [facility] Glucose Test strip (U) [Mass/Vol] Negative Negative [facility] Interpretation and review of laboratory results Abnormal [facility] Ketones (U) [Mass/Vol] Trace Abnormal Negative [facility] Leukocyte esterase Test strip Ql (U) Small Abnormal Negative [facility] Nitrite Ql (U) Negative Negative [facility] pH (U) 5.5 [pH] 5.0 - 7.[address] [facility] Protein (U) [Mass/Vol] 30 mg/dL Abnormal Negative [facility] RBC (U) [#/Vol] Trace Abnormal Negative [facility] RBC LM.HPF (Urine sed) [#/Area] 0-2 0 - 2 /HPF [facility] Specific gravity (U) [Rel density] 1.[address] [facility] Urobilinogen (U) [Mass/Vol] 0.2 E.U./dL 0.2 E.U/dL, 1.0 E.U/dL [facility] WBC LM.HPF (Urine sed) [#/Area] 10-20 Abnormal 0 - 5 /HPF [facility] URINE PROTEIN/CREA RATIO, RA NDOMon 06-12-2022 Creatinine (24H U) [Mass/Vol] 231.68 mg/dL [facility] Protein Unsp time (U) [Mass/Vol] 49 mg/dL [facility] Protein/Creatinine (U) [Mass ratio] 0.211 mg/g [facility] FK506 (TACROLIMUS) WHOLE BLO ODon 06-09-2022 Tacrolimus (FK506), Blood 9.8 ng/mL Normal 2.0-20.0 [facility] Comment on above: Result Comment: Trou gh (immediately following transplant) 15.0 . Trough (steady state, 2 weeks or more after transplant): 3.0 - 8.0 . Performed by LC-MS/MS technology. Performed By: #### U RTPCR #### [facility] [address] [place] [address] Dr. Dwight Waters ALBUMINon 06-06-2022 Albumin [Mass/Vol] 3.8 g/dL Normal 3.4-5.0 [facility] Comment on above: Performed By: #### C MP #### [facility] [address] [place] [address] Dr. Dwight Waters ALKALINE PHOSPHAon ALP [Catalytic activity/Vol] 82 U/L Normal 46-116 [facility] Comment on above: Performed By: #### C MP #### [facility] [address] [place] [address] Dr. Dwight Waters BILIRUBIN CONJUGATED (DIRECT )on 06-06-2022 BILI, CONJUGATED 0.2 mg/dL Normal 0.0-0.2 [facility] Comment on above: Performed By: #### C BC #### [facility] [address] [place] [address] Dr. Dwight Waters BILIRUBIN TOTALon 06-06-2022 Bilirubin [Mass/Vol] 1.0 mg/dL Normal 0.2-1.0 [facility] Comment on above: Performed By: #### C BC #### [facility] [address] [place] [address] Dr. Dwight Waters BUNon 06-06-2022 Urea nitrogen [Mass/Vol] 18.0 mg/dL Normal 7.0-18.0 [facility] Comment on above: Performed By: #### C BC #### [facility] [address] [place] [address] Dr. Dwight Waters CALCIUMon 06-06-2022 Calcium [Mass/Vol] 9.4 mg/dL Normal 8.5-10.1 [facility] Comment on above: Performed By: #### C MP #### [facility] [address] [place] [address] Dr. Dwight Waters CBC AUTO DIFFon 06-06-2022 BASO # 0.1 103/ul Normal 0.0-0.1 [facility] Comment on above: Performed By: #### U RTPCR #### [facility] [address] [address] [address] Dwight Waters Basophils/100 WBC (Bld) 0.8 % Normal 0.2-2.0 [facility] Comment on above: Performed By: #### U RTPCR #### [facility] [address] [place] [address] Dr. Dwight Waters EO # 0.3 103/ul Normal 0.0-0.7 [facility] Comment on above: Performed By: #### U RTPCR #### [facility] [address] [place] [address] Dr. Dwight Waters Eosinophils/100 WBC (Bld) 3.3 % Normal 0.9-7.0 [facility] Comment on above: Performed By: #### U RTPCR #### [facility] [address] [place] [address] Dr. Dwight Waters Erythrocyte distribution width (RBC) [Ratio] 12.4 % Normal 11.0-15.0 [facility] Comment on above: Performed By: #### U RTPCR #### [facility] [address] [place] [address] Dr. Dwight Waters Hematocrit (Bld) [Volume fraction] 45.1 % Normal 42.0-54.0 [facility] Comment on above: Performed By: #### U RTPCR #### [facility] [address] [place] [address] Dr. Dwight Waters Hemoglobin (Bld) [Mass/Vol] 14.4 g/dL Normal 14.0-18.0 [facility] Comment on above: Performed By: #### U RTPCR #### [facility] [address] [place] [address] Dr. Dwight Wtaers IG # 0.01 10e3/ul Normal 0.00-0.03 [facility] Comment on above: Performed By: #### U RTPCR #### [facility] [address] [place] [address] Dr. Dwight Waters IG % 0.1 % Normal 0.0-0.5 [facility] Comment on above: Performed By: #### U RTPCR #### [facility] [address] [place] [address] Dr. Dwight Waters LYMPH # 2.2 103/ul Normal 1.2-3.8 [facility] Comment on above: Performed By: #### U RTPCR #### [facility] [address] [place] [address] Dr. Dwight Waters Lymphocytes/100 WBC (Bld) 30.0 % Normal 20.5-60.0 [facility] Comment on above: Performed By: #### U RTPCR #### [facility] [address] [place] [address] Dr. Dwight Waters MANUAL DIFF REQ NO Normal [facility] Comment on above: Performed By: #### U RTPCR #### [facility] [address] [place] [address] Dr. Dwight Waters MCH (RBC) [Entitic mass] 28.2 pg Normal 25.9-34.0 [facility] Comment on above: Performed By: #### U RTPCR #### [facility] [address] [place] [address] Dr. Dwight Waters MCHC (RBC) [Mass/Vol] 31.9 g/dL Normal 29.9-35.2 [facility] Comment on above: Performed By: #### U RTPCR #### [facility] [address] [place] [address] Dr. Dwight Waters MCV (RBC) [Entitic vol] 88.3 fL Normal 80.0-94.0 [facility] Comment on above: Performed By: #### U RTPCR #### [facility] [address] [place] [address] Dr. Dwight Waters MONO # 0.6 103/ul Normal 0.3-0.8 [facility] Comment on above: Performed By: #### U RTPCR #### [facility] [address] [place] [address] Dr. Dwight Waters Monocytes/100 WBC (Bld) 8.2 % Normal 1.7-12.0 [facility] Comment on above: Performed By: #### U RTPCR #### [facility] [address] [place] [address] Dr. Dwight Waters NEUT # 4.3 103/ul Normal 1.4-6.5 [facility] Comment on above: Performed By: #### U RTPCR #### [facility] [address] [place] [address] Dr. Dwight Waters Neutrophils/100 WBC (Bld) 57.6 % Normal 43.0-75.0 [facility] Comment on above: Performed By: #### U RTPCR #### [facility] [address] [place] [address] Dr. Dwight Waters Platelet mean volume (Bld) [Entitic vol] 9.7 fL Normal 9.5-13.5 [facility] Comment on above: Performed By: #### U RTPCR #### [facility] [address] [place] [address] Dr. Dwight Waters PLT 297 103/ul Normal 150-450 [facility] Comment on above: Performed By: #### U RTPCR #### [facility] [address] [place] [address] Dr. Dwight Waters RBC 5.11 106/ul Normal 4.70-6.10 [facility] Comment on above: Performed By: #### U RTPCR #### [facility] [address] [place] [address] Dr. Dwight Waters WBC 7.5 103/ul Normal 4.0-11.0 [facility] Comment on above: Performed By: #### U RTPCR #### [facility] [address] [place] [address] Dr. Dwight Waters CHLORIDEon 06-06-2022 Chloride [Moles/Vol] 107 mmol/L Normal 98-107 [facility] Comment on above: Performed By: #### C BC #### [facility] [address] [place] [address] Dr. Dwight Waters CO2on 06-06-2022 CO2 [Moles/Vol] 27.4 mmol/L Normal 21.0-32.0 [facility] Comment on above: Performed By: #### C BC #### [facility] [address] [address] [address] Dwight Waters CREATININEon 06-06-2022 Creatinine [Mass/Vol] 1.20 mg/dL Normal 0.70-1.30 [facility] Comment on above: Performed By: #### C BC #### [facility] [address] [address] [address] Dwight Waters EGFR-AF DJIBOUTIAN >60 Normal >=60 [facility] Comment on above: Performed By: #### C BC #### [facility] [address] [address] [address] Dwight Waters EGFR-NON AF DJIBOUTIAN >60 Normal >=60 [facility] Comment on above: Performed By: #### C BC #### [facility] [address] [place] [address] Dr. Dwight Waters GGTon 06-06-2022 Gamma glutamyl transferase [Catalytic activity/Vol] 29 U/L Normal 15-85 [facility] Comment on above: Performed By: #### C BC #### [facility] [address] [place] [address] Dr. Dwight Waters GLUCOSE BLOODon 06-06-2022 Glucose [Mass/Vol] 112 mg/dL Critically high 74-[address] [facility] Comment on above: Performed By: #### C BC #### [facility] [address] [place] [address] Dr. Dwight Waters MAGNESIUMon 06-06-2022 Magnesium [Mass/Vol] 1.3 mg/dL Critically low 1.8-2.4 [facility] Comment on above: Performed By: #### C MP #### [facility] [address] [place] [address] Dr. Dwight Waters NAon 06-06-2022 Sodium [Moles/Vol] 141 mmol/L Normal 136-145 [facility] Comment on above: Performed By: #### C MP #### [facility] [address] [place] [address] Dr. Dwight Waters PHOSPHORUSon 06-06-2022 Phosphate [Mass/Vol] 3.1 mg/dL Normal 2.6-4.7 [facility] Comment on above: Performed By: #### C MP #### [facility] [address] [place] [address] Dr. Dwight Waters POTASSIUMon 06-06-2022 Potassium [Moles/Vol] 4.3 mmol/L Normal 3.5-5.1 [facility] Comment on above: Performed By: #### C BC #### [facility] [address] [place] [address] Dr. Dwight Waters SGOTon 06-06-2022 AST [Catalytic activity/Vol] 16 U/L Normal 15-37 [facility] Comment on above: Performed By: #### C BC #### [facility] [address] [place] [address] Dr. Dwight Waters SGPTon 06-06-2022 ALT [Catalytic activity/Vol] 50 U/L Normal 16-63 [facility] Comment on above: Performed By: #### C BC #### [facility] [address] [place] [address] Dr. Dwight Waters Bacteria identified Cx Nom ( Bld)on 05-21-2022 Bacteria identified Cx Nom (Unsp spec) NO GROWTH DAY 5 OF 5 [facility] Results may be compr omised due to volume of BACT\ALERT bottle exceeding 10mLs . The optimal blood volume is 8-10 mls per aerobic/anaerobic blood culture bottle. [facility] CALCIUMon 05-20-2022 Calcium [Mass/Vol] 9.1 mg/dL 8.6 - 10. 5 mg/dL [facility] CBC,PLATELETSon 05-20-2022 Erythrocyte distribution width (RBC) [Ratio] 12.5 % 10.9 - 14.3 % [facility] Hematocrit (Bld) [Volume fraction] 37.1 % Low 39.6 - 48.8 % [facility] Hemoglobin (Bld) [Mass/Vol] 12.3 g/dL Low 13.4 - 16.8 g/dL [facility] Interpretation and review of laboratory results Abnormal [facility] MCH (RBC) [Entitic mass] 28.9 pg 26.1 - 33.[address] [facility] MCHC (RBC) [Mass/Vol] 33.2 g/dL 31.9 - 36.5 g/dL [facility] MCV (RBC) [Entitic vol] 87.3 fL 79.0 - 94.[address] [facility] Platelet mean volume (Bld) [Entitic vol] 9.9 fL 8.7 - 12.[address] [facility] Platelets (Bld) [#/Vol] 234 10*3/uL 146 - 337 K/uL [facility] RBC (Bld) [#/Vol] 4.25 10*6/uL Low [facility] WBC (Bld) [#/Vol] 6.31 10*3/uL 3.73 - 10. 10 K/uL [facility] CHEM 7 (LYTES,BUN,CREA,GLUC) on 05-20-2022 Anion gap [Moles/Vol] 15 mmol/L 7 - 17 mmol/L [facility] Chloride [Moles/Vol] 111 mmol/L High 98 - 10 8 mmol/L [facility] CO2 [Moles/Vol] 22 mmol/L 21 - 31 mmol/L [facility] Creatinine [Mass/Vol] 1.10 mg/dL 0.70 - 1.30 mg/dL [facility] GFR/1.73 sq M.predicted CKD-EPI (S/P/Bld) [Vol rate/Area] 81 >=60 mL/min/1.73m [address] [facility] Comment on above: Reported eGFR is bas ed on the CKD-EPI 2020 equation using creatinine, age, and sex. Glucose [Mass/Vol] 92 mg/dL 70 - 99 mg/dL [facility] Interpretation and review of laboratory results Abnormal [facility] Osmolality Calc [Osmolality] [address] [facility] Potassium [Moles/Vol] 4.4 mmol/L 3.5 - 5.0 mmol/L [facility] Sodium [Moles/Vol] 144 mmol/L 135 - 145 mmol/[facility] Urea nitrogen [Mass/Vol] 18 mg/dL 7 - 25 mg/dL [facility] Urea nitrogen/Creatinine [Mass ratio] 16 mg/[facility] MAGNESIUMon 05-20-2022 Interpretation and review of laboratory results Abnormal [facility] Magnesium [Mass/Vol] 1.5 mg/dL Low 1.6 - 2 .6 mg/dL [facility] No Panel Informationon 05-20 Interpretation and review of laboratory results Normal [facility] PHOSPHATE, INORGANICon 05-20 Phosphate [Mass/Vol] 3.3 mg/dL 2.2 - 4 .6 mg/dL [facility] RF Unspecified body region V iews [...] projections of kidneys, ureters, and bladder. 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 [...] projections of kidneys, ureters, and bladder. 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 [...] I have reviewed and approved this report. [facility] Radiology Study observation (narrative) [facility] RF Unspecified body region V iews during surgeryOrdered By: Lizz Campos on 05-20-[address] [facility] Work Phone: CALCIUMon 05-19-2022 Calcium [Mass/Vol] 9.2 mg/dL 8.6 - 10. 5 mg/dL [facility] Calcium [Mass/Vol] 8.6 mg/dL 8.6 - 10. 5 mg/dL [facility] CBC,PLATELETSon 05-19-2022 Erythrocyte distribution width (RBC) [Ratio] 12.4 % 10.9 - 14.3 % [facility] Hematocrit (Bld) [Volume fraction] 38.0 % Low 39.6 - 48.8 % [facility] Hemoglobin (Bld) [Mass/Vol] 12.0 g/dL Low 13.4 - 16.8 g/dL [facility] Interpretation and review of laboratory results Abnormal [facility] MCH (RBC) [Entitic mass] 28.6 pg 26.1 - 33.[address] [facility] MCHC (RBC) [Mass/Vol] 31.6 g/dL Low 31.9 - 36.5 g/dL [facility] MCV (RBC) [Entitic vol] 90.5 fL 79.0 - 94.[address] [facility] Platelet mean volume (Bld) [Entitic vol] 9.7 fL 8.7 - 12.[address] [facility] Platelets (Bld) [#/Vol] 199 10*3/uL 146 - 337 K/uL [facility] RBC (Bld) [#/Vol] 4.20 10*6/uL Low [facility] WBC (Bld) [#/Vol] 6.81 10*3/uL 3.73 - 10. 10 K/uL [facility] CHEM 7 (LYTES,BUN,CREA,GLUC) on 05-19-2022 Anion gap [Moles/Vol] 13 mmol/L 7 - 17 mmol/L [facility] Chloride [Moles/Vol] 105 mmol/L 98 - 10 8 mmol/L [facility] CO2 [Moles/Vol] 30 mmol/L 21 - 31 mmol/L [facility] Creatinine [Mass/Vol] 1.39 mg/dL High 0.70 - 1.30 mg/dL [facility] GFR/1.73 sq M.predicted CKD-EPI (S/P/Bld) [Vol rate/Area] 61 >=60 mL/min/1.73m [address] [facility] Comment on above: Reported eGFR is bas ed on the CKD-EPI 2020 equation using creatinine, age, and sex. Glucose [Mass/Vol] 121 mg/dL High 70 - 99 mg/dL [facility] Interpretation and review of laboratory results Abnormal [facility] Osmolality Calc [Osmolality] [address] [facility] Potassium [Moles/Vol] 3.8 mmol/L 3.5 - 5.0 mmol/L [facility] Sodium [Moles/Vol] 144 mmol/L 135 - 145 mmol/L [facility] Urea nitrogen [Mass/Vol] 18 mg/dL 7 - 25 mg/dL [facility] Urea nitrogen/Creatinine [Mass ratio] 13 mg/mg [facility] Anion gap [Moles/Vol] 15 mmol/L 7 - 17 mmol/L [facility] Chloride [Moles/Vol] 106 mmol/L 98 - 10 8 mmol/L [facility] [facility] CO2 [Moles/Vol] 24 mmol/L 21 - 31 mmol/L [facility] Creatinine [Mass/Vol] 1.46 mg/dL High 0.70 - 1.30 mg/dL [facility] GFR/1.73 sq M.predicted CKD-EPI (S/P/Bld) [Vol rate/Area] 58 Low >=60 mL/min/1.73m [address] [facility] Comment on above: Reported eGFR is bas ed on the CKD-EPI 2020 equation using creatinine, age, and sex. Glucose [Mass/Vol] 103 mg/dL High 70 - 99 mg/dL [facility] Interpretation and review of laboratory results Abnormal [facility] Osmolality Calc [Osmolality] [address] [facility] Potassium [Moles/Vol] 3.9 mmol/L 3.5 - 5.0 mmol/L [facility] Sodium [Moles/Vol] 141 mmol/L 135 - 145 mmol/L [facility] Urea nitrogen [Mass/Vol] 21 mg/dL 7 - 25 mg/dL [facility] Urea nitrogen/Creatinine [Mass ratio] 14 mg/mg [facility] MAGNESIUMon 05-19-2022 Magnesium [Mass/Vol] 2.0 mg/dL 1.6 - 2 .6 mg/dL [facility] Magnesium [Mass/Vol] 1.7 mg/dL 1.6 - 2 .6 mg/dL [facility] No Panel Informationon 05-19 Interpretation and review of laboratory results Normal [facility] Interpretation and review of laboratory results Normal [facility] PHOSPHATE, INORGANICon 05-19 Phosphate [Mass/Vol] 3.0 mg/dL 2.2 - 4 .6 mg/dL [facility] Phosphate [Mass/Vol] 2.7 mg/dL 2.2 - 4 .6 mg/dL [facility] CALCIUMon 05-18-2022 Calcium [Mass/Vol] 9.1 mg/dL 8.6 - 10. 5 mg/dL [facility] CBC,PLATELETSon 05-18-2022 Erythrocyte distribution width (RBC) [Ratio] 12.5 % 10.9 - 14.3 % [facility] Hematocrit (Bld) [Volume fraction] 37.3 % Low 39.6 - 48.8 % [facility] Hemoglobin (Bld) [Mass/Vol] 11.9 g/dL Low 13.4 - 16.8 g/dL [facility] Interpretation and review of laboratory results Abnormal [facility] MCH (RBC) [Entitic mass] 28.9 pg 26.1 - 33.[address] [facility] MCHC (RBC) [Mass/Vol] 31.9 g/dL 31.9 - 36.5 g/dL [facility] MCV (RBC) [Entitic vol] 90.5 fL 79.0 - 94.[address] [facility] Platelet mean volume (Bld) [Entitic vol] 10.1 fL 8.7 - 12.[address] [facility] Platelets (Bld) [#/Vol] 189 10*3/uL 146 - 337 K/uL [facility] RBC (Bld) [#/Vol] 4.12 10*6/uL Low [facility] WBC (Bld) [#/Vol] 10.19 10*3/uL High 3.73 - 10 .10 K/uL [facility] CHEM 7 (LYTES,BUN,CREA,GLUC) on 05-18-2022 Anion gap [Moles/Vol] 13 mmol/L 7 - 17 mmol/L [facility] Chloride [Moles/Vol] 102 mmol/L 98 - 10 8 mmol/L [facility] CO2 [Moles/Vol] 26 mmol/L 21 - 31 mmol/L [facility] Creatinine [Mass/Vol] 1.91 mg/dL High 0.70 - 1.30 mg/dL [facility] GFR/1.73 sq M.predicted CKD-EPI (S/P/Bld) [Vol rate/Area] 42 Low >=60 mL/min/1.73m [address] [facility] Comment on above: Reported eGFR is bas ed on the CKD-EPI 2020 equation using creatinine, age, and sex. Glucose [Mass/Vol] 158 mg/dL High 70 - 99 mg/dL [facility] Osmolality Calc [Osmolality] [address] [facility] Potassium [Moles/Vol] 4.0 mmol/L 3.5 - 5.0 mmol/L [facility] Sodium [Moles/Vol] 137 mmol/L 135 - 145 [facility] Urea nitrogen [Mass/Vol] 30 mg/dL High 7 - 25 mg/dL [facility] Urea nitrogen/Creatinine [Mass ratio] 16 mg/mg [facility] CHEM 7 (LYTES,BUN,CREA,GLUC) Ordered By: Tamiko Thapa on 05-18-2022 Anion gap [Moles/Vol] 13 mmol/L 7 - 17 mmol/L [facility] Chloride [Moles/Vol] 104 mmol/L 98 - 10 8 mmol/L [facility] CO2 [Moles/Vol] 26 mmol/L 21 - 31 mmol/L [facility] Creatinine [Mass/Vol] 2.96 mg/dL High 0.70 - 1.30 mg/dL [facility] GFR/1.73 sq M.predicted CKD-EPI (S/P/Bld) [Vol rate/Area] 25 Low >=60 mL/min/1.73m [address] [facility] Comment on above: Reported eGFR is bas ed on the CKD-EPI 2020 equation using creatinine, age, and sex. Glucose [Mass/Vol] 136 mg/dL High 70 - 99 mg/dL [facility] Interpretation and review of laboratory results Abnormal [facility] Osmolality Calc [Osmolality] [address] [facility] Potassium [Moles/Vol] 4.2 mmol/L 3.5 - 5.0 mmol/L [facility] Sodium [Moles/Vol] 139 mmol/L 135 - 145 mmol/L [facility] Urea nitrogen [Mass/Vol] 41 mg/dL High 7 - 25 mg/dL [facility] Urea nitrogen/Creatinine [Mass ratio] 14 mg/mg [facility] MAGNESIUMon 05-18-2022 Magnesium [Mass/Vol] 2.2 mg/dL 1.6 - 2 .6 mg/dL [facility] Interpretation and review of laboratory results Normal [facility] Magnesium [Mass/Vol] 1.7 mg/dL 1.6 - 2 .6 mg/dL [facility] No Panel Informationon 05-18 Interpretation and review of laboratory results Abnormal [facility] Interpretation and review of laboratory results Normal [facility] PHOSPHATE, INORGANICon 05-18 Phosphate [Mass/Vol] 2.0 mg/dL Low 2.2 - 4 .6 mg/dL [facility] Interpretation and review of laboratory results Normal [facility] Phosphate [Mass/Vol] 2.8 mg/dL 2.2 - 4 .6 mg/dL [facility] PT,INR,PTTon 05-18-2022 aPTT Coag (PPP) [Time] 31.[address] [facility] INR Coag (Bld) [Relative time] 1.1 {INR} [facility] Interpretation and review of laboratory results Abnormal [facility] PT Coag (PPP) [Time] 14.4 s High [facility] URINE CULTUREOrdered By: Sylvia Campos on 05-18-2022 Bacteria identified Cx Nom (Unsp spec) No Growth [facility] CBC,PLATELETSon 05-17-2022 Erythrocyte distribution width (RBC) [Ratio] 12.8 % 10.9 - 14.3 % [facility] Hematocrit (Bld) [Volume fraction] 42.8 % 39.6 - 48.8 % [facility] Hemoglobin (Bld) [Mass/Vol] 13.3 g/dL Low 13.4 - 16.8 g/dL [facility] Interpretation and review of laboratory results Abnormal [facility] MCH (RBC) [Entitic mass] 28.9 pg 26.1 - 33.[address] [facility] MCHC (RBC) [Mass/Vol] 31.1 g/dL Low 31.9 - 36.5 g/dL [facility] MCV (RBC) [Entitic vol] 92.8 fL 79.0 - 94.[address] [facility] Platelet mean volume (Bld) [Entitic vol] 10.3 fL 8.7 - 12.[address] [facility] Platelets (Bld) [#/Vol] 188 10*3/uL 146 - 337 K/uL [facility] RBC (Bld) [#/Vol] 4.61 10*6/uL [facility] WBC (Bld) [#/Vol] 16.61 10*3/uL High 3.73 - 10 .10 K/uL [facility] CHEM 7 (LYTES,BUN,CREA,GLUC) Ordered By: Kaylah Mc on 05-17-2022 Anion gap [Moles/Vol] 15 mmol/L 7 - 17 mmol/L [facility] Chloride [Moles/Vol] 103 mmol/L 98 - 10 8 mmol/L [facility] CO2 [Moles/Vol] 23 mmol/L 21 - 31 mmol/L [facility] Creatinine [Mass/Vol] 5.95 mg/dL High 0.70 - 1.30 mg/dL [facility] GFR/1.73 sq M.predicted CKD-EPI (S/P/Bld) [Vol rate/Area] 11 Low >=60 mL/min/1.73m [address] [facility] Comment on above: Reported eGFR is bas ed on the CKD-EPI 2020 equation using creatinine, age, and sex. Glucose [Mass/Vol] 165 mg/dL High 70 - 99 mg/dL [facility] Interpretation and review of laboratory results Abnormal [facility] Osmolality Calc [Osmolality] [address] [facility] Potassium [Moles/Vol] 4.6 mmol/L 3.5 - 5.0 mmol/L [facility] Sodium [Moles/Vol] 136 mmol/L 135 - 145 mmol/L [facility] Urea nitrogen [Mass/Vol] 52 mg/dL High 7 - 25 mg/dL [facility] Urea nitrogen/Creatinine [Mass ratio] 9 mg/mg [facility] CHEM 7 (LYTES,BUN,CREA,GLUC) Ordered By: Kehinde Gutierrez on 05-17-2022 Anion gap [Moles/Vol] 24 mmol/L High 7 - 17 mmol/L [facility] Chloride [Moles/Vol] 100 mmol/L 98 - 10 8 mmol/L [facility] CO2 [Moles/Vol] 16 mmol/L Low 21 - 31 mmol/L [facility] Creatinine [Mass/Vol] 8.08 mg/dL High 0.70 - 1.30 mg/dL [facility] GFR/1.73 sq M.predicted CKD-EPI (S/P/Bld) [Vol rate/Area] 7 Low >=60 mL/min/1.73m [address] [facility] Comment on above: Reported eGFR is bas ed on the CKD-EPI 2020 equation using creatinine, age, and sex. Glucose [Mass/Vol] 164 mg/dL High 70 - 99 mg/dL [facility] Interpretation and review of laboratory results Abnormal [facility] Osmolality Calc [Osmolality] [address] [facility] Potassium [Moles/Vol] 5.0 mmol/L 3.5 - 5.0 mmol/L [facility] Sodium [Moles/Vol] 135 mmol/L 135 - 145 mmol/L [facility] Urea nitrogen [Mass/Vol] 56 mg/dL High 7 - 25 mg/dL [facility] Urea nitrogen/Creatinine [Mass ratio] 7 mg/mg [facility] LAVENDER TOP TUBEon 05-17-[address] [facility] MAGNESIUMon 05-17-2022 Interpretation and review of laboratory results Normal [facility] Magnesium [Mass/Vol] 1.8 mg/dL 1.6 - 2 .6 mg/dL [facility] Interpretation and review of laboratory results Normal [facility] Magnesium [Mass/Vol] 1.6 mg/dL 1.6 - 2 .6 mg/dL [facility] No Panel Informationon 05-[address] [facility] PHOSPHATE, INORGANICon 05-17 Interpretation and review of laboratory results Abnormal [facility] Phosphate [Mass/Vol] 4.9 mg/dL High 2.2 - 4 .6 mg/dL [facility] PT,INR,PTTon 05-17-2022 aPTT Coag (PPP) [Time] 33.0 s [facility] INR Coag (Bld) [Relative time] 1.3 {INR} High [facility] Interpretation and review of laboratory results Abnormal [facility] PT Coag (PPP) [Time] 15.[address] [facility] Portable XR Chest Viewson IMPRESSION: No acute findings. OLOGY EXAM: XR CHEST IKERAN BLE, 05/17/2022 14:39 PM COMPARISON: May 15, [...] Stable cardiomegaly. IMPRESSION IMPRESSION: No acute findings. [facility] Radiology Study observation (narrative) [facility] Portable XR Chest ViewsOrder ed By: David Sanz on 05-17-[address] [facility] Work Phone: URINALYSISOrdered By: Michael patel Ma on 05-17-2022 Appearance (U) Cloudy Abnormal Clear [facility] Comment on above: Results may be inacc urate due to color interference. Clinical correlation recommended. Bacteria LM Ql (Urine sed) ABSENT ABSENT [facility] Color (U) Red Abnormal Yellow [facility] Comment on above: Results may be inacc urate due to color interference. Clinical correlation recommended. Epithelial cells.squamous LM Ql (Urine sed) ABSENT 1/hpf = 1+, 2-5/hpf = 2+, 0/hpf = 0+, ABSENT [facility] Glucose Test strip (U) [Mass/Vol] Negative Negative [facility] Comment on above: Results may be inacc urate due to color interference. Clinical correlation recommended. Interpretation and review of laboratory results Abnormal [facility] Ketones (U) [Mass/Vol] Trace Abnormal Negative [facility] Comment on above: Results may be inacc urate due to color interference. Clinical correlation recommended. Leukocyte esterase Test strip Ql (U) Large Abnormal Negative [facility] Comment on above: Results may be inacc urate due to color interference. Clinical correlation recommended. Nitrite Ql (U) Negative Negative [facility] Comment on above: Results may be inacc urate due to color interference. Clinical correlation recommended. pH (U) 5.0 [pH] 5.0 - 7.[address] [facility] Comment on above: Results may be inacc urate due to color interference. Clinical correlation recommended. Protein (U) [Mass/Vol] mg/dL Abnormal Negative [facility] Comment on above: Results may be inacc urate due to color interference. Clinical correlation recommended. RBC (U) [#/Vol] Large Abnormal Negative [facility] Comment on above: Results may be inacc urate due to color interference. Clinical correlation recommended. RBC LM.HPF (Urine sed) [#/Area] /[HPF] Abnormal 0 - 2 /HPF [facility] Specific gravity (U) [Rel density] 1.[address] [facility] Comment on above: Results may be inacc urate due to color interference. Clinical correlation recommended. Urobilinogen (U) [Mass/Vol] 0.2 E.U./dL 0.2 E.U/dL, 1.0 E.U/dL [facility] Comment on above: Results may be inacc urate due to color interference. Clinical correlation recommended. WBC LM.HPF (Urine sed) [#/Area] /[HPF] Abnormal 0 - 5 /HPF [facility] URINE CULTUREOrdered By: Tyler Tiwari on 05-17-2022 Bacteria identified Cx Nom (Unsp spec) No Growth [facility] CBC,PLATELETSon 05-16-2022 Erythrocyte distribution width (RBC) [Ratio] 12.9 % 10.9 - 14.3 % [facility] Hematocrit (Bld) [Volume fraction] 46.5 % 39.6 - 48.8 % [facility] Hemoglobin (Bld) [Mass/Vol] 14.7 g/dL 13.4 - 16.8 g/dL [facility] Interpretation and review of laboratory results Abnormal [facility] MCH (RBC) [Entitic mass] 28.3 pg 26.1 - 33.[address] [facility] MCHC (RBC) [Mass/Vol] 31.6 g/dL Low 31.9 - 36.5 g/dL [facility] MCV (RBC) [Entitic vol] 89.6 fL 79.0 - 94.[address] [facility] Platelet mean volume (Bld) [Entitic vol] 10.3 fL 8.7 - 12.[address] [facility] Platelets (Bld) [#/Vol] 188 10*3/uL 146 - 337 K/uL [facility] RBC (Bld) [#/Vol] 5.19 10*6/uL [facility] WBC (Bld) [#/Vol] 12.55 10*3/uL High 3.73 - 10 .10 K/uL [facility] CHEM 7 (LYTES,BUN,CREA,GLUC) Ordered By: Alma Pena on 05-16-2022 Anion gap [Moles/Vol] 14 mmol/L 7 - 17 mmol/L [facility] Chloride [Moles/Vol] 103 mmol/L 98 - 10 8 mmol/L [facility] CO2 [Moles/Vol] 22 mmol/L 21 - 31 mmol/L [facility] Creatinine [Mass/Vol] 6.09 mg/dL High 0.70 - 1.30 mg/dL [facility] GFR/1.73 sq M.predicted CKD-EPI (S/P/Bld) [Vol rate/Area] 10 Low >=60 mL/min/1.73m [address] [facility] Comment on above: Reported eGFR is bas ed on the CKD-EPI 2021 equation using creatinine, age, and sex. Glucose [Mass/Vol] 134 mg/dL High 70 - 99 mg/dL [facility] Interpretation and review of laboratory results Abnormal [facility] Osmolality Calc [Osmolality] [facility] Potassium [Moles/Vol] 4.9 mmol/L 3.5 - 5.0 mmol/L [facility] Sodium [Moles/Vol] 134 mmol/L Low 135 - 145 mmol/L [facility] Comment on above: Results inconsistent with previous results Urea nitrogen [Mass/Vol] 49 mg/dL High 7 - 25 mg/dL [facility] Urea nitrogen/Creatinine [Mass ratio] 8 mg/mg [facility] CHEM 7 (LYTES,BUN,CREA,GLUC) on 05-16-2022 Anion gap [Moles/Vol] 17 mmol/L 7 - 17 mmol/L [facility] Chloride [Moles/Vol] 106 mmol/L 98 - 10 8 mmol/L [facility] CO2 [Moles/Vol] 22 mmol/L 21 - 31 mmol/L [facility] Creatinine [Mass/Vol] 5.23 mg/dL High 0.70 - 1.30 mg/dL [facility] GFR/1.73 sq M.predicted CKD-EPI (S/P/Bld) [Vol rate/Area] 13 Low >=60 mL/min/1.73m [address] [facility] Comment on above: Reported eGFR is bas ed on the CKD-EPI 2021 equation using creatinine, age, and sex. Glucose [Mass/Vol] 116 mg/dL High 70 - 99 mg/dL [facility] Interpretation and review of laboratory results Abnormal [facility] Osmolality Calc [Osmolality] [facility] Potassium [Moles/Vol] 4.6 mmol/L 3.5 - 5.0 mmol/L [facility] Sodium [Moles/Vol] 140 mmol/L 135 - 145 mmol/L [facility] Urea nitrogen [Mass/Vol] 42 mg/dL High 7 - 25 mg/dL [facility] Urea nitrogen/Creatinine [Mass ratio] 8 mg/mg [facility] EXTRA MICROon 05-16-[address] [facility] LT BLUE TOP TUBEon [address] [facility] LYTES (NA, K, CL) - URINE - RANDOMon 05-16-2022 Chloride (24H U) [Moles/Vol] 68 mmol/L [facility] Potassium (24H U) [Moles/Vol] 36.7 mmol/L [facility] Sodium (24H U) [Moles/Vol] 55 mmol/L [facility] The reference range has not been established for random urine specimens. The test result should be integrated into the clinical context for interpretation. [facility] MAGNESIUMon 05-16-2022 Interpretation and review of laboratory results Normal [facility] Magnesium [Mass/Vol] 1.7 mg/dL 1.6 - 2 .6 mg/dL [facility] NOVEL CORONAVIRUS PCROrdered By: Edson Candelario on 05-16-2022 SARS-CoV-2 (COVID-19) RNA ESTELITA+probe Ql (Unsp spec) Not detected NOT DETECTED [facility] Comment on above: [facility] Negative results [...] use authorization for use by authorized laboratories. [facility] No Panel Informationon 05-16 [facility] OSMOLALITY, URINEon 05-16-20 Interpretation and review of laboratory results Normal [facility] Osmolality (U) [Osmolality] 320 mosm/kg [facility] The reference range has not been established for random urine specimens. The test result should be integrated into the clinical context for interpretation. [facility] PROCALCITONINon 05-16-2022 Interpretation and review of laboratory results Normal [facility] Procalcitonin [Mass/Vol] 0.18 ng/mL <0.[address] [facility] Comment on above: Procalcitonin is an [...] and trend procalcitonin in various clinical settings. [email or web address] Two common cutoffs associated with bacterial infections are as follows. Respiratory tract infections: >0.25 ng/mL Sepsis/septic shock: >0.5 ng/mL Procalcitonin should not be used alone as a diagnostic tool, however. All procalcitonin results should be interpreted in association with the patients clinical condition and all laboratory findings. [facility] PT,INR,PTTon 05-16-2022 aPTT Coag (PPP) [Time] 30.[address] [facility] INR Coag (Bld) [Relative time] 1.1 {INR} [facility] Interpretation and review of laboratory results Normal [facility] PT Coag (PPP) [Time] 14.1 s [facility] SARS-CoV-2 (COVID-19) RNA NA A+probe Ql (Unsp spec)Ordered By: Edson Candelario on 05-16-2022 Interpretation and review of laboratory results Normal [facility] TACROLIMUS LEVEL, TROUGH ([place] E DRUG LEVEL)Ordered By: Mariama Nick on 05-16-2022 Interpretation and review of laboratory results Normal [facility] Tacrolimus (Bld) [Mass/Vol] 4.1 ng/mL Bone Marrow Transplant: 4.0-12.0, Therapeutic: 5.0-15.[address] [facility] Method performed is a chemiluminescent microparticle immunoasssay on the [employer] i2000. The range is based on experience at [facility] and users should be aware that target concentrations vary widely depending on concomitant therapy, time post-transplant, and desired degree of immunosuppression. [facility] URINE PROTEIN/CREA RATIO, RA ARPITOMon 05-16-2022 Creatinine (24H U) [Mass/Vol] 59.82 mg/dL [facility] Protein Unsp time (U) [Mass/Vol] 111 mg/dL [facility] Protein/Creatinine (U) [Mass ratio] 1.856 mg/g [facility] US for transplanted kidney l imitedon [...] appearing vascular flow in the transplant kidney. [facility] Radiology Study observation (narrative) [facility] US for transplanted kidney l imitedOrdered By: Rosendo Matute on 05-16-[address] [facility] Work Phone: CBC AND ELECTRONIC DIFFon Basophils (Bld) [#/Vol] 10*3/uL 0.00 - 0.09 K/uL [facility] Basophils/100 WBC (Bld) 0.2 % [facility] Differential cell count method Nom (Bld) Electronic Differential [facility] Eosinophils (Bld) [#/Vol] 10*3/uL 0.00 - 0.48 K/uL [facility] Eosinophils/100 WBC (Bld) 0.0 % [facility] Erythrocyte distribution width (RBC) [Ratio] 12.8 % 10.9 - 14.3 % [facility] Hematocrit (Bld) [Volume fraction] 46.0 % 39.6 - 48.8 % [facility] Hemoglobin (Bld) [Mass/Vol] 14.6 g/dL 13.4 - 16.8 g/dL [facility] Immature granulocytes (Bld) [#/Vol] 0.07 10*3/uL <=0.[address] [facility] Immature granulocytes/100 WBC (Bld) 0.4 % [facility] Interpretation and review of laboratory results Abnormal [facility] Lymphocytes (Bld) [#/Vol] 1.49 10*3/uL 0.83 - 3.57 K/uL [facility] Lymphocytes/100 WBC (Bld) 9.4 % [facility] MCH (RBC) [Entitic mass] 28.2 pg 26.1 - 33.[address] [facility] MCHC (RBC) [Mass/Vol] 31.7 g/dL Low 31.9 - 36.5 g/dL [facility] MCV (RBC) [Entitic vol] 89.0 fL 79.0 - 94.[address] [facility] Monocytes (Bld) [#/Vol] 1.45 10*3/uL High 0.24 - 0.93 K/uL [facility] Monocytes/100 WBC (Bld) 9.2 % [facility] Neutrophils (Bld) [#/Vol] 12.77 10*3/uL High 1.57 - 6.19 K/uL [facility] Nucleated RBC/100 WBC (Bld) [Ratio] 0.0 % <=0.2 /[address] [facility] Platelet mean volume (Bld) [Entitic vol] 9.9 fL 8.7 - 12.[address] [facility] Platelets (Bld) [#/Vol] 250 10*3/uL 146 - 337 K/uL [facility] RBC (Bld) [#/Vol] 5.17 10*6/uL [facility] Segmented neutrophils/100 WBC (Bld) 80.8 % [facility] WBC (Bld) [#/Vol] 15.81 10*3/uL High 3.73 - 10 .10 K/uL [facility] CBC AUTO DIFFon 05-15-2022 BASO # 0.0 103/ul Normal 0.0-0.1 [facility] Comment on above: Performed By: #### C BC #### [facility] [address] [place] [address] Dr. Dwight Waters Basophils/100 WBC (Bld) 0.3 % Normal 0.2-2.0 [facility] Comment on above: Performed By: #### C BC #### [facility] [address] [place] [address] Dr. Dwight Waters EO # 0.1 103/ul Normal 0.0-0.7 [facility] Comment on above: Performed By: #### C BC #### [facility] [address] [place] [address] Dr. Dwight Waters Eosinophils/100 WBC (Bld) 0.8 % Critically low 0.9-7.0 [facility] Comment on above: Performed By: #### C BC #### [facility] [address] [place] [address] Dr. Dwight Waters Erythrocyte distribution width (RBC) [Ratio] 12.7 % Normal 11.0-15.0 [facility] Comment on above: Performed By: #### C BC #### [facility] [address] [place] [address] Dr. Dwight Waters Hematocrit (Bld) [Volume fraction] 43.5 % Normal 42.0-54.0 [facility] Comment on above: Performed By: #### C BC #### [facility] [address] [place] [address] Dr. Dwight Waters Hemoglobin (Bld) [Mass/Vol] 14.4 g/dL Normal 14.0-18.0 [facility] Comment on above: Performed By: #### C BC #### [facility] [address] [place] [address] Dr. Dwight Waters IG # 0.02 10e3/ul Normal 0.00-0.03 [facility] Comment on above: Performed By: #### C BC #### [facility] [address] [place] [address] Dr. Dwight Waters IG % 0.2 % Normal 0.0-0.5 [facility] Comment on above: Performed By: #### C BC #### [facility] [address] [place] [address] Dr. Dwight Waters LYMPH # 1.5 103/ul Normal 1.2-3.8 [facility] Comment on above: Performed By: #### C BC #### [facility] [address] [place] [address] Dr. Dwight Waters Lymphocytes/100 WBC (Bld) 12.5 % Critically low 20.5-60.0 [facility] Comment on above: Performed By: #### C BC #### [facility] [address] [place] [address] Dr. Dwight Waters MANUAL DIFF REQ NO Normal [facility] Comment on above: Performed By: #### C BC #### [facility] [address] [place] [place] [address] Dr. Dwight Waters MCH (RBC) [Entitic mass] 28.6 pg Normal 25.9-34.0 [facility] Comment on above: Performed By: #### C BC #### [facility] [address] [place] [address] Dr. Dwight Waters MCHC (RBC) [Mass/Vol] 33.1 g/dL Normal 29.9-35.2 [facility] Comment on above: Performed By: #### C BC #### [facility] [address] [place] [address] Dr. Dwight Waters MCV (RBC) [Entitic vol] 86.3 fL Normal 80.0-94.0 [facility] Comment on above: Performed By: #### C BC #### [facility] [address] [place] [address] Dr. Dwight Waters MONO # 1.0 103/ul Critically high 0.3-0.8 [facility] Comment on above: Performed By: #### C BC #### [facility] [address] [place] [address] Dr. Dwight Waters Monocytes/100 WBC (Bld) 8.2 % Normal 1.7-12.0 [facility] Comment on above: Performed By: #### C BC #### [facility] [address] [address] [address] Dwight Waters NEUT # 9.1 103/ul Critically high 1.4-6.5 [facility] Comment on above: Performed By: #### C BC #### [facility] [address] [address] [address] Dwight Waters Neutrophils/100 WBC (Bld) 78.0 % Critically high 43.0-75.0 [facility] Comment on above: Performed By: #### C BC #### [facility] [address] [address] [address] Dwight Waters Platelet mean volume (Bld) [Entitic vol] 9.8 fL Normal 9.5-13.5 [facility] Comment on above: Performed By: #### C BC #### [facility] [address] [place] [address] Dr. Dwight Waters PLT 251 103/ul Normal 150-450 [facility] Comment on above: Performed By: #### C BC #### [facility] [address] [address] [address] Dwight Waters RBC 5.04 106/ul Normal 4.70-6.10 [facility] Comment on above: Performed By: #### C BC #### [facility] [address] [address] [address] Dwight Waters WBC 11.6 103/ul Critically high 4.0-11.0 [facility] Comment on above: Performed By: #### C BC #### [facility] [address] [place] [address] Dr. Dwight Waters CHEM 6 (LYTES, BUN CREA)on 0 05-15-2022 Anion gap [Moles/Vol] 12 mmol/L 7 - 17 mmol/L [facility] Chloride [Moles/Vol] 105 mmol/L 98 - 10 8 mmol/L [facility] CO2 [Moles/Vol] 26 mmol/L 21 - 31 mmol/L [facility] Creatinine [Mass/Vol] 2.85 mg/dL High 0.70 - 1.30 mg/dL [facility] GFR/1.73 sq M.predicted CKD-EPI (S/P/Bld) [Vol rate/Area] 26 Low >=60 mL/min/1.73m 2 [facility] Comment on above: Reported eGFR is bas ed on the CKD-EPI 2020 equation using creatinine, age, and sex. Potassium [Moles/Vol] 4.6 mmol/L 3.5 - 5.0 mmol/L [facility] Sodium [Moles/Vol] 138 mmol/L 135 - 145 mmol/L [facility] Urea nitrogen [Mass/Vol] 32 mg/dL High 7 - 25 mg/dL [facility] Urea nitrogen/Creatinine [Mass ratio] 11 mg/mg [facility] CT ABD/PELVIS WO CONon 05-15 CT [...] transplanted kidney with moderate right-sided hydronephrosis. Atrophic [place] kidneys with moderate right-sided hydronephrosis. Multiple nonobstructive [...] transplanted kidney with moderate right-sided hydronephrosis. Atrophic [place] kidneys with moderate right-sided hydronephrosis. Multiple nonobstructive right renal calculi measuring up to 8 mm. FOLLOW-UP: Follow-up as clinically indicated. Electronically authenticated by: LYNDSAY JEAN Date: 2022-05-15 05:04 Normal [facility] Covid-19 PCR (CVDTB)on 04-30 SARS-CoV-2 (COVID-19) RNA ESTELITA+probe Ql (Unsp spec) Not detected Normal NOT DETECTED [facility] Comment on above: Result Comment: When [...] for this test is supported by the [place] of [employer]'s declaration that [...] used). Performed By: #### U RTPCR #### [facility] [address] [place] [address] Dr. Dwight Waters GLUCOSEon 05-15-2022 Glucose [Mass/Vol] 141 mg/dL High 70 - 99 mg/dL [facility] GOLD TOP TUBEon 05-15-2022 [facility] HEPATIC FUNCTION PANELon Albumin [Mass/Vol] 4.3 g/dL 3.5 - 5.0 g/dL [facility] ALP [Catalytic activity/Vol] 85 U/L 32 - 126 U/L [facility] ALT [Catalytic activity/Vol] 13 U/L 10 - 52 U/L [facility] AST [Catalytic activity/Vol] 15 U/L 10 - 39 U/L [facility] Bilirubin [Mass/Vol] 0.8 mg/dL <1.[address] [facility] Bilirubin.direct [Mass/Vol] 0.2 mg/dL <0.[address] [facility] Interpretation and review of laboratory results Normal [facility] Protein [Mass/Vol] 7.3 g/dL 6.4 - 8.3 g/dL [facility] LIPASEon 05-15-2022 Lipase [Catalytic activity/Vol] 8 U/L Low 11 - 82 U/L [facility] No Panel Informationon 05-15 Interpretation and review of laboratory results Abnormal [facility] PROF 14(COMP METB)on 022 Albumin [Mass/Vol] 3.8 g/dL Normal 3.4-5.0 [facility] Comment on above: Performed By: #### U RTPCR #### [facility] [address] [place] [address] Dr. Dwight Waters Albumin/Globulin [Mass ratio] 1.1 {ratio} Normal [facility] Comment on above: Performed By: #### U RTPCR #### [facility] [address] [place] [address] Dr. Dwight Waters ALP [Catalytic activity/Vol] 92 U/L Normal 46-116 [facility] Comment on above: Performed By: #### U RTPCR #### [facility] [address] [place] [address] Dr. Dwight Waters ALT [Catalytic activity/Vol] 25 U/L Normal 16-63 [facility] Comment on above: Performed By: #### U RTPCR #### [facility] [address] [address] [address] Dwight Waters Anion gap [Moles/Vol] 14.6 mmol/L Normal [facility] Comment on above: Performed By: #### U RTPCR #### [facility] [address] [address] [address] Dwight Waters AST [Catalytic activity/Vol] 17 U/L Normal 15-37 [facility] Comment on above: Performed By: #### U RTPCR #### [facility] [address] [address] [address] Dwight Waters Bilirubin [Mass/Vol] 0.6 mg/dL Normal 0.2-1.0 [facility] Comment on above: Performed By: #### U RTPCR #### [facility] [address] [address] [address] Dwight Waters Calcium [Mass/Vol] 9.9 mg/dL Normal 8.5-10.1 [facility] Comment on above: Performed By: #### U RTPCR #### [facility] [address] [address] [address] Dwight Waters Chloride [Moles/Vol] 106 mmol/L Normal 98-107 [facility] Comment on above: Performed By: #### U RTPCR #### [facility] [address] [place] [address] Dr. Dwight Waters CO2 [Moles/Vol] 24.2 mmol/L Normal 21.0-32.0 [facility] Comment on above: Performed By: #### U RTPCR #### [facility] [address] [address] [address] Dwight Waters Creatinine [Mass/Vol] 1.58 mg/dL Critically high 0.70-1.30 [facility] Comment on above: Performed By: #### U RTPCR #### [facility] [address] [place] [address] Dr. Dwight Waters EGFR-AF DJIBOUTIAN 56 mL/min/1.73m2 Critically low >=60 [facility] Comment on above: Performed By: #### U RTPCR #### [facility] [address] [address] [address] Dwight Waters EGFR-NON AF DJIBOUTIAN 46 mL/min/1.73m2 Critically low >=60 [facility] Comment on above: Performed By: #### U RTPCR #### [facility] [address] [address] [address] Dwight Waters Globulin (S) [Mass/Vol] 3.5 g/dL Normal [facility] Comment on above: Performed By: #### U RTPCR #### [facility] [address] [address] [address] Dwight Waters Glucose [Mass/Vol] 162 mg/dL Critically high 74-[address] [facility] Comment on above: Performed By: #### U RTPCR #### [facility] [address] [address] [address] Dwight Waters Potassium [Moles/Vol] 3.8 mmol/L Normal 3.5-5.1 [facility] Comment on above: Performed By: #### U RTPCR #### [facility] [address] [address] [address] Dwight Waters Protein [Mass/Vol] 7.3 g/dL Normal 6.4-8.2 [facility] Comment on above: Performed By: #### U RTPCR #### [facility] [address] [place] [address] Dr. Dwight Waters Sodium [Moles/Vol] 141 mmol/L Normal 136-145 [facility] Comment on above: Performed By: #### U RTPCR #### [facility] [address] [address] [address] Dwight Waters Urea nitrogen [Mass/Vol] 22.0 mg/dL Critically high 7.0-18.0 [facility] Comment on above: Performed By: #### U RTPCR #### [facility] [address] [place] [address] Dr. Dwight Waters Urea nitrogen/Creatinine [Mass ratio] 13.9 mg/mg Normal [facility] Comment on above: Performed By: #### U RTPCR #### [facility] [address] [address] [address] Dwight Waters Portable XR Chest Viewson [...] chest. IMPRESSION IMPRESSION: No acute cardiopulmonary disease [facility] Radiology Study observation (narrative) [facility] Portable XR Chest ViewsOrder ed By: Vladislav Omer on 05-15-[address] [facility] URINE DIPSTICK; REFLEX MICRO SCOPY; REFLEX CULTURE PERFORMABLEon 05-15-2022 Appearance (U) Clear Clear [facility] Color (U) Yellow Yellow [facility] Glucose Test strip (U) [Mass/Vol] 100 mg/dL Abnormal Negative [facility] Interpretation and review of laboratory results Abnormal [facility] Ketones (U) [Mass/Vol] Negative Negative [facility] Leukocyte esterase Test strip Ql (U) Large Abnormal Negative [facility] Nitrite Ql (U) Negative Negative [facility] pH (U) 6.0 [pH] 5.0 - 7.[address] [facility] Protein (U) [Mass/Vol] 100 mg/dL Abnormal Negative [facility] RBC (U) [#/Vol] Large Abnormal Negative [facility] Specific gravity (U) [Rel density] 1.[address] [facility] Urobilinogen (U) [Mass/Vol] 0.2 E.U./dL 0.2 E.U/dL, 1.0 E.U/dL [facility] URINE MICROSCOPIC WITH REFLE X TO CULTUREOrdered By: Rey Bro on 05-15-2022 Bacteria LM Ql (Urine sed) ABSENT ABSENT [facility] Epithelial cells.squamous LM Ql (Urine sed) ABSENT 1/hpf = 1+, 2-5/hpf = 2+, 0/hpf = 0+, ABSENT [facility] Interpretation and review of laboratory results Abnormal [facility] RBC LM.HPF (Urine sed) [#/Area] /[HPF] Abnormal 0 - 2 /HPF [facility] WBC LM.HPF (Urine sed) [#/Area] 10-20 Abnormal 0 - 5 /HPF [facility] CT ABD/PELVIS WO CONon 05-12 CT ABD/PELVIS WO CON Begin Addendum #[address] Lund 3:25 PM EST 05/11/2022. Begin Addendum #2 IMPRESSION below should also contain the followin. 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 The [place] kidneys are progressively atrophic bilaterally compared to [...] of 06/14/2020 are no longer present. The [place] distal right ureter is decompressed beyond this [...] with surgical history for renal graft and [place] right urinary drainage, as a discrete ureteroneocystostomy is not identified, and the graft may be draining via a ureteroureterostomy. Urology consultation recommended. 3. The [place] kidneys are bilaterally atrophic, with right renal sinus calcifications consistent with nonobstructing right [place] renal calculi up to 6 mm. Normal [facility] CBC AUTO DIFFon 05-11-2022 BASO # 0.1 103/ul Normal 0.0-0.1 [facility] Comment on above: Performed By: #### U RTPCR #### [facility] [address] [address] [address] Dwight Waters Basophils/100 WBC (Bld) 0.8 % Normal 0.2-2.0 [facility] Comment on above: Performed By: #### U RTPCR #### [facility] [address] [place] [address] Dr. Dwight Waters EO # 0.2 103/ul Normal 0.0-0.7 [facility] Comment on above: Performed By: #### U RTPCR #### [facility] [address] [place] [address] Dr. Dwight Waters Eosinophils/100 WBC (Bld) 2.5 % Normal 0.9-7.0 [facility] Comment on above: Performed By: #### U RTPCR #### [facility] [address] [place] [address] Dr. Dwight Waters Erythrocyte distribution width (RBC) [Ratio] 12.5 % Normal 11.0-15.0 [facility] Comment on above: Performed By: #### U RTPCR #### [facility] [address] [place] [address] Dr. Dwight Waters Hematocrit (Bld) [Volume fraction] 48.3 % Normal 42.0-54.0 [facility] Comment on above: Performed By: #### U RTPCR #### [facility] [address] [place] [address] Dr. Dwight Waters Hemoglobin (Bld) [Mass/Vol] 15.3 g/dL Normal 14.0-18.0 [facility] Comment on above: Performed By: #### U RTPCR #### [facility] [address] [place] [address] Dr. Dwight Waters IG # 0.01 10e3/ul Normal 0.00-0.03 [facility] Comment on above: Performed By: #### U RTPCR #### [facility] [address] [place] [address] Dr. Dwight Waters IG % 0.2 % Normal 0.0-0.5 [facility] Comment on above: Performed By: #### U RTPCR #### [facility] [address] [place] [address] Dr. Dwight Waters LYMPH # 1.9 103/ul Normal 1.2-3.8 [facility] Comment on above: Performed By: #### U RTPCR #### [facility] [address] [place] [address] Dr. Dwight Waters Lymphocytes/100 WBC (Bld) 29.8 % Normal 20.5-60.0 [facility] Comment on above: Performed By: #### U RTPCR #### [facility] [address] [place] [address] Dr. Dwight Waters MANUAL DIFF REQ NO Normal [facility] Comment on above: Performed By: #### U RTPCR #### [facility] [address] [place] [address] Dr. Dwight Waters MCH (RBC) [Entitic mass] 28.2 pg Normal 25.9-34.0 [facility] Comment on above: Performed By: #### U RTPCR #### [facility] [address] [place] [address] Dr. Dwight Waters MCHC (RBC) [Mass/Vol] 31.7 g/dL Normal 29.9-35.2 [facility] Comment on above: Performed By: #### U RTPCR #### [facility] [address] [place] [address] Dr. Dwight Waters MCV (RBC) [Entitic vol] 89.1 fL Normal 80.0-94.0 [facility] Comment on above: Performed By: #### U RTPCR #### [facility] [address] [place] [address] Dr. Dwight Waters MONO # 0.6 103/ul Normal 0.3-0.8 [facility] Comment on above: Performed By: #### U RTPCR #### [facility] [address] [place] [address] Dr. Dwight Waters Monocytes/100 WBC (Bld) 9.0 % Normal 1.7-12.0 [facility] Comment on above: Performed By: #### U RTPCR #### [facility] [address] [place] [address] Dr. Dwight Waters NEUT # 3.6 103/ul Normal 1.4-6.5 [facility] Comment on above: Performed By: #### U RTPCR #### [facility] [address] [place] [address] Dr. Dwight Waters Neutrophils/100 WBC (Bld) 57.7 % Normal 43.0-75.0 [facility] Comment on above: Performed By: #### U RTPCR #### [facility] [address] [place] [address] Dr. Dwight Waters Platelet mean volume (Bld) [Entitic vol] 9.9 fL Normal 9.5-13.5 [facility] Comment on above: Performed By: #### U RTPCR #### [facility] [address] [place] [address] Dr. Dwight Waters PLT 249 103/ul Normal 150-450 [facility] Comment on above: Performed By: #### U RTPCR #### [facility] [address] [place] [address] Dr. Dwight Waters RBC 5.42 106/ul Normal 4.70-6.10 [facility] Comment on above: Performed By: #### U RTPCR #### [facility] [address] [place] [address] Dr. Dwight Waters WBC 6.3 103/ul Normal 4.0-11.0 [facility] Comment on above: Performed By: #### U RTPCR #### [facility] [address] [place] [address] Dr. Dwight Waters ER URINE PROFILEon 2 Bilirubin Ql (U) Unable to perform te sting due to color interference. Abnormal NEGATIVE [facility] Comment on above: Performed By: #### U RTPCR #### [facility] [address] [place] [address] Dr. Dwight Waters Clarity (U) TURBID Abnormal CLEAR [facility] Comment on above: Performed By: #### U RTPCR #### [facility] [address] [place] [address] Dr. Dwight Waters Color (U) RED Abnormal YELLOW [facility] Comment on above: Performed By: #### U RTPCR #### [facility] [address] [place] [address] Dr. Dwight SHARMA A micrscopic examina tion will be performed if indicated. Normal [facility] Comment on above: Performed By: #### U RTPCR #### [facility] [address] [place] [address] Dr. Dwight Waters Glucose Ql (U) Unable to perform te sting due to color interference. Abnormal NEGATIVE [facility] Comment on above: Performed By: #### U RTPCR #### [facility] [address] [place] [address] Dr. Dwight Waters Hemoglobin Ql (U) Unable to perform te sting due to color interference. Abnormal NEGATIVE [facility] Comment on above: Performed By: #### U RTPCR #### [facility] [address] [place] [address] Dr. Dwight Waters Ketones Ql (U) Unable to perform te sting due to color interference. Abnormal NEGATIVE [facility] Comment on above: Performed By: #### U RTPCR #### [facility] [address] [place] [address] Dr. Dwight Waters LEUKOCYTES Unable to perform te sting due to color interference. Abnormal NEGATIVE [facility] Comment on above: Performed By: #### U RTPCR #### [facility] [address] [place] [address] Dr. Dwight Waters Nitrite Ql (U) Unable to perform te sting due to color interference. Abnormal NEGATIVE [facility] Comment on above: Performed By: #### U RTPCR #### [facility] [address] [place] [address] Dr. Dwight Waters pH (U) 6.5 [pH] Normal 5-9 [facility] Comment on above: Performed By: #### U RTPCR #### [facility] [address] [place] [address] Dr. Dwight Waters SPEC GRAVITY 1.020 Normal 1.005-<=1.02 5 [facility] Comment on above: Performed By: #### U RTPCR #### [facility] [address] [place] [address] Dr. Dwight Waters UA PROTEIN Unable to perform te sting due to color interference. Normal NEGATIVE/ TRACE [facility] Comment on above: Performed By: #### U RTPCR #### [facility] [address] [place] [address] Dr. Dwight Waters UR MICRO IND INDICATED Normal [facility] Comment on above: Performed By: #### U RTPCR #### [facility] [address] [place] [address] Dr. Dwight Waters UROBILINOGEN Unable to perform te sting due to color interference. Normal 0.2 - 1.0 [facility] Comment on above: Performed By: #### U RTPCR #### [facility] [address] [place] [address] Dr. Dwight Waters PROF 14(COMP METB)on 022 Albumin [Mass/Vol] 3.8 g/dL Normal 3.4-5.0 [facility] Comment on above: Performed By: #### C MP #### [facility] [address] [place] [address] Dr. Dwight Waters Albumin/Globulin [Mass ratio] 1.1 {ratio} Normal [facility] Comment on above: Performed By: #### C MP #### [facility] [address] [place] [address] Dr. Dwight Waters ALP [Catalytic activity/Vol] 106 U/L Normal 46-116 [facility] Comment on above: Performed By: #### C MP #### [facility] [address] [place] [address] Dr. Dwight Waters ALT [Catalytic activity/Vol] 30 U/L Normal 16-63 [facility] Comment on above: Performed By: #### C MP #### [facility] [address] [place] [address] Dr. Dwight Waters Anion gap [Moles/Vol] 11.7 mmol/L Normal [facility] Comment on above: Performed By: #### C MP #### [facility] [address] [place] [address] Dr. Dwight Waters AST [Catalytic activity/Vol] 16 U/L Normal 15-37 [facility] Comment on above: Performed By: #### C MP #### [facility] [address] [place] [address] Dr. Dwight Waters Bilirubin [Mass/Vol] 0.6 mg/dL Normal 0.2-1.0 [facility] Comment on above: Performed By: #### C MP #### [facility] [address] [place] [address] Dr. Dwight Waters Calcium [Mass/Vol] 9.1 mg/dL Normal 8.5-10.1 [facility] Comment on above: Performed By: #### C MP #### [facility] [address] [place] [address] Dr. Dwight Waters CO2 [Moles/Vol] 27.4 mmol/L Normal 21.0-32.0 [facility] Comment on above: Performed By: #### C MP #### [facility] [address] [place] [address] Dr. Dwight Waters Creatinine [Mass/Vol] 1.18 mg/dL Normal 0.70-1.30 [facility] Comment on above: Performed By: #### C MP #### [facility] [address] [place] [address] Dr. Dwight Waters EGFR-AF DJIBOUTIAN >60 Normal >=60 [facility] Comment on above: Performed By: #### C MP #### [facility] [address] [place] [address] Dr. Dwight Waters EGFR-NON AF DJIBOUTIAN >60 Normal >=60 [facility] Comment on above: Performed By: #### C MP #### [facility] [address] [place] [address] Dr. Dwight Waters Globulin (S) [Mass/Vol] 3.6 g/dL Normal [facility] [facility] Comment on above: Performed By: #### C MP #### [facility] [address] [place] [address] Dr. Dwight Waters Glucose [Mass/Vol] 192 mg/dL Critically high 74-106 [facility] Comment on above: Performed By: #### C MP #### [facility] [address] [place] [address] Dr. Dwight Waters Potassium [Moles/Vol] 4.1 mmol/L Normal 3.5-5.1 [facility] Comment on above: Performed By: #### C MP #### [facility] [address] [place] [address] Dr. Dwight Waters Protein [Mass/Vol] 7.4 g/dL Normal 6.4-8.2 [facility] Comment on above: Performed By: #### C MP #### [facility] [address] [place] [address] Dr. Dwight Waters Sodium [Moles/Vol] 142 mmol/L Normal 136-145 [facility] Comment on above: Performed By: #### C MP #### [facility] [address] [place] [address] Dr. Dwight Waters Urea nitrogen [Mass/Vol] 17.0 mg/dL Normal 7.0-18.0 [facility] Comment on above: Performed By: #### C MP #### [facility] [address] [place] [address] Dr. Dwight Waters Urea nitrogen/Creatinine [Mass ratio] 14.4 mg/mg Normal [facility] Comment on above: Performed By: #### C MP #### [facility] [address] [place] [address] Dr. Dwight Waters URINE MICROSCOPIC ONLYon BACTERIA NONE SEEN Normal NONE SEEN [facility] Comment on above: Performed By: #### U RTPCR #### [facility] [address] [place] [address] Dr. Dwight Waters Bacteria identified Cx Nom (U) NOT INDICATED Normal [facility] Comment on above: Performed By: #### U RTPCR #### [facility] [address] [place] [address] Dr. Dwight Waters CAST NONE SEEN Normal NONE SEEN [facility] Comment on above: Performed By: #### U RTPCR #### [facility] [address] [place] [address] Dr. Dwight Waters Crystals LM Nom (Urine sed) NONE SEEN Normal NONE SEEN [facility] Comment on above: Performed By: #### U RTPCR #### [facility] [address] [address] [address] Dwight Waters Epithelial cells LM Ql (Urine sed) RARE Normal NONE SEEN /RARE [facility] Comment on above: Performed By: #### U RTPCR #### [facility] [address] [address] [address] Dwight Waters MUCOUS NONE SEEN Normal NONE SEEN [facility] Comment on above: Performed By: #### U RTPCR #### [facility] [address] [place] [address] Dr. Dwight Waters RBC (U) [#/Vol] /uL Abnormal 0-2 [facility] Comment on above: Performed By: #### U RTPCR #### [facility] [address] [place] [address] Dr. Dwight Waters WBC NONE SEEN Normal NONE SEEN [facility] Comment on above: Performed By: #### U RTPCR #### [facility] [address] [place] [address] Dr. Dwight Waters K (Potassium)on 01-06-2020 Potassium [Moles/Vol] 4.4 mmol/L Normal 3.7-5.3 [facility] Comment on above: Performed By: #### K #### [facility] [address] [place] [address] Systems Management Consultant: Kehinde Woodward MD Potassiumon 01-06-2020 Potassium [Moles/Vol] 4.4 mmol/L 3.7 - 5.3 mmol/L [facility] Work Phone: Hemoglobin and Hematocrit, B loodon 10-24-2019 Hematocrit (Bld) [Volume fraction] 23.6 % Low 40.7 - 50.3 % [place], [place] Hemoglobin (Bld) [Mass/Vol] 7.3 g/dL Low 13 - 17 g/dL [place] Interpretation and review of laboratory results Abnormal [place] Hgb/Hcton 10-24-2019 Hematocrit (Bld) [Volume fraction] 23.6 % Low 40.7-50.3 [facility] Comment on above: Performed By: #### H H #### [facility] [address] [place] [address] Systems Management Consultant: Kehinde Woodward MD Hemoglobin (Bld) [Mass/Vol] 7.3 g/dL Low 13.0-17.0 [facility] Comment on above: Performed By: #### H H #### [facility] [address] [place] [id number] Systems Management Consultant: Kehinde Woodward MD Hemoglobinon 08-27-2019 Hemoglobin (Bld) [Mass/Vol] 7.5 g/dL Low 13.0-17.0 [facility] Comment on above: Performed By: #### H GB #### [facility] [address] [place] [id number] Systems Management Consultant: Kehinde Woodward MD Hemoglobin (Bld) [Mass/Vol] 7.5 g/dL Low 13 - 17 g/dL [place] Interpretation and review of laboratory results Abnormal [place] Hemoglobinon 08-08-2019 Hemoglobin (Bld) [Mass/Vol] 8.3 g/dL Low 13.0-17.0 [facility] Comment on above: Performed By: #### H GB #### [facility] [address] [place], [place] [id number] Systems Management Consultant: Kehinde Woodward MD Hemoglobin (Bld) [Mass/Vol] 8.3 g/dL Low 13 - 17 g/dL [place] Interpretation and review of laboratory results Abnormal [place] Hemoglobinon 08-04-2019 Hemoglobin (Bld) [Mass/Vol] 8.0 g/dL Low 13.0-17.0 [facility] Comment on above: Performed By: #### H GB #### [facility] [address] [place] [id number] Systems Management Consultant: Kehinde Woodward MD Hemoglobin A1Con 08-03-2019 HbA1c (Bld) [Mass fraction] % Low 4.8-5.9 [facility] Comment on above: Result Comment: The ADA and AACC recommend providing the estimated average glucose result to permit better patient understanding of their HBA1c result. Performed By: #### G LYHGB #### [facility] [address] [place] [address] Systems Management Consultant: Kehinde Woodward MD Glucose [Mass/Vol] mg/dL mg/dL [place] Comment on above: The ADA and AACC rec ommend providing the estimated average glucose result to permit better patient understanding of their HBA1c result. HbA1c (Bld) [Mass fraction] % Low 4.8 - 5.9 % [place] Interpretation and review of laboratory results Abnormal [place] Hemoglobinon 08-01-2019 Hemoglobin (Bld) [Mass/Vol] 8.1 g/dL Low 13.0-17.0 [facility] Comment on above: Performed By: #### H GB #### [facility] [address] [place] [id number] Systems Management Consultant: Kehinde Woodward MD Hemoglobin (Bld) [Mass/Vol] 8.1 g/dL Low 13 - 17 g/dL [place] Interpretation and review of laboratory results Abnormal [place] Hgb/Hcton 06-10-2019 Hematocrit (Bld) [Volume fraction] 24.3 % Low 40.7-50.3 [facility] Comment on above: Performed By: #### H H #### [facility] [address] [place] [address] Systems Management Consultant: Kehinde Woodward MD Hemoglobin (Bld) [Mass/Vol] 7.4 g/dL Low 13.0-17.0 [facility] Comment on above: Performed By: #### H H #### [facility] [address] [place] [address] Systems Management Consultant: Kehinde Woodward MD Hemoglobinon 06-01-2019 Hemoglobin (Bld) [Mass/Vol] 7.2 g/dL Low 13.0-17.0 [facility] Comment on above: Performed By: #### H GB #### [facility] [address] [place] [address] Systems Management Consultant: Kehinde Woodward MD K (Potassium)on 01-14-2019 Potassium [Moles/Vol] 3.6 mmol/L Low 3.7-5.3 [facility] Comment on above: Performed By: #### K #### [facility] [address] [place], [place] [address] Systems Management Consultant: Kehinde Woodward MD Otheron 10-19-2018 IMPRESSION: 1. [...] by Toxicology Laboratory at [facility]. It has not been cleared [...] Amitriptyline(50), Amphetamine(250), Atenolol(500), Barbiturates(1000), Benzoylecgonine(50), Buprenorphine(50), Bupropion(25), Caffeine(01954), Chlordiazepoxide(50), Chlorpheniramine(100), Chlorpromazine(50), Citalopram(100), Clonazepam(200), Cocaine(25), Codeine(200), [...] [place], [place] TOXICOLOGY SCREEN URINE - UD [facility] 10-12-2018 Drugs identified Screen Nom (U) For Medical Purposes Only, Non-forensic, screen results are presumptive. No confirmatory testing will follow. Invalid Interpretation Code LAB, [facility] Comment on above: This Liquid Chromato graphy Mass Spectrometry (LC/MS/MS) test was developed and its performance characteristics determined by Toxicology Laboratory at [facility]. It has not been cleared [...] Amitriptyline(50), Amphetamine(250), Atenolol(500), Barbiturates(200), Benzoylecgonine(50), Buprenorphine(500), Bupropion(25), Caffeine(59437), Cannabinoids(THC)(50), Chlordiazepoxide(50), Chlorpheniramine(100), Chlorpromazine(50), Citalopram(100), Clonazepam(200), Cocaine(25), [...] index (BMI) [Ratio] 29.43 kg/m2 Rebeca Gutierrez [employer]OR [employer]ATOR REPAIRER-THREAD TWISTER Work Phone: [facility] 06-17-2024 08:37-0400 Body temperature 97.39 [degF] Rebeca Gutierrez [employer]ATOR REPAIRER-THREAD TWISTER Work Phone: [facility] 06-17-2024 08:37-0400 Body weight 85.23 kg Rebeca Gutierrez [employer]OR AND GENERATOR REPAIRER-THREAD TWISTER Work Phone: [facility] 06-17-2024 08:37-0400 Diastolic blood pressure 75 mm[Hg] Rebeca Gutierrez [employer]OR AND GENERATOR REPAIRER-THREAD TWISTER Work Phone: [facility] 06-17-2024 08:37-0400 Heart rate 53 /min Rebeca Gutierrez [employer]OR AND GENERATOR REPAIRER-THREAD TWISTER Work Phone: [facility] 06-17-2024 08:37-0400 Systolic blood pressure 143 mm[Hg] Rebeca Gutierrez [employer]OR AND GENERATOR REPAIRER-THREAD TWISTER Work Phone: [facility] 06-17-2024 08:36-0400 Body mass index (BMI) [Ratio] 29.43 kg/m2 Daisha Max DO Work Phone: [facility] 06-17-2024 08:36-0400 Body temperature 97.39 [degF] Daisha Max DO Work Phone: [facility] 06-17-2024 08:36-0400 Body weight 85.23 kg Daisha Sobotka DO Work Phone: [facility] 06-17-2024 08:36-0400 Diastolic blood pressure 75 mm[Hg] Daisha Sobotka DO Work Phone: [facility] 06-17-2024 08:36-0400 Heart rate 53 /min Daisha Sobotka DO Work Phone: [facility] 06-17-2024 08:36-0400 Systolic blood pressure 143 mm[Hg] Daisha Sobotka DO Work Phone: [facility] 02-26-2024 09:07-0400 Diastolic blood pressure 56 mm[Hg] Candie Almaguer MD Work Phone: [facility] 02-26-2024 09:07-0400 Heart rate 65 /min Candie Almaguer MD Work Phone: [facility] 02-26-2024 09:07-0400 Systolic blood pressure 113 mm[Hg] Candie Almaguer MD Work Phone: [facility] 02-26-2024 09:06-0400 Body height 170.2 cm Candie Almaguer MD Work Phone: [facility] 02-26-2024 09:06-0400 Body mass index (BMI) [Ratio] 28.9 kg/m2 Candie Almaguer MD Work Phone: [facility] 02-26-2024 09:06-0400 Body weight 83.69 kg Candie Almaguer MD Work Phone: [facility] 02-26-2024 09:06-0400 Respiratory rate 20 /min Candie Almaguer MD Work Phone: [facility] 02-26-2024 09:06-0400 SaO2% (BldA) [Mass fraction] 97 % Candie Almaguer MD Work Phone: [facility] 01-23-2024 15:04-0500 Body temperature 97.9 [degF] Kevin Sage MD Work Phone: [facility] 01-23-2024 15:04-0500 Diastolic blood pressure 67 mm[Hg] Kevin Sage MD Work Phone: [facility] 01-23-2024 15:04-0500 Heart rate 51 /min Kevin Sage MD Work Phone: [facility] 01-23-2024 15:04-0500 Respiratory rate 16 /min Kevin Sage MD Work Phone: [facility] 01-23-2024 15:04-0500 SaO2% (BldA) [Mass fraction] 94 % Kevin Sage MD Work Phone: [facility] 01-23-2024 15:04-0500 Systolic blood pressure 151 mm[Hg] Kevin Sage MD Work Phone: [facility] 01-23-2024 10:46-0500 Body mass index (BMI) [Ratio] 30.94 kg/m2 Kevin Sage MD Work Phone: [facility] 01-23-2024 10:46-0500 Body weight 89.6 kg Kevin Sage MD Work Phone: [facility] 01-18-2024 11:21-0500 Body height 170.2 cm Kevin Sage MD Work Phone: [facility] 01-06-2024 09:04-0500 Body height 170.2 cm Zuly Bruno NP Work Phone: [facility] 01-06-2024 09:04-0500 Body mass index (BMI) [Ratio] 32.42 kg/m2 Zulytray Annz ERP PM Work Phone: [facility] 01-06-2024 09:04-0500 Body temperature 97.81 [degF] Zulytray Tannerholz ERP PM Work Phone: [facility] 01-06-2024 09:04-0500 Body weight 93.89 kg Zulytray Tannerholz ERP PM Work Phone: [facility] 01-06-2024 09:04-0500 Diastolic blood pressure 70 mm[Hg] Zuly Lexiehholz ERP PM Work Phone: [facility] 01-06-2024 09:04-0500 Heart rate 95 /min Zulytray Tannerholz ERP PM Work Phone: [facility] 01-06-2024 09:04-0500 Respiratory rate 17 /min Zuly Brianholz ERP PM Work Phone: [facility] 01-06-2024 09:04-0500 SaO2% (BldA) [Mass fraction] 99 % Zuly Lexiehholz ERP PM Work Phone: [facility] 01-06-2024 09:04-0500 Systolic blood pressure 138 mm[Hg] Zuly Brianholz ERP PM Work Phone: [facility] 09-11-2023 10:31-0400 Body temperature 97.81 [degF] Steve Yeison MBBS Work Phone: [facility] 09-11-2023 10:31-0400 Diastolic blood pressure 66 mm[Hg] Steve Yeison MBBS Work Phone: [facility] 09-11-2023 10:31-0400 Heart rate 70 /min Steve Yeison MBBS Work Phone: [facility] 09-11-2023 10:31-0400 Respiratory rate 20 /min Steve Yeison MBBS Work Phone: [facility] 09-11-2023 10:31-0400 SaO2% (BldA) [Mass fraction] 91 % Steve Yeison MBBS Work Phone: [facility] 09-11-2023 10:31-0400 Systolic blood pressure 129 mm[Hg] Steve Yeison MBBS Work Phone: [facility] 09-10-2023 15:50-0400 Body mass index (BMI) [Ratio] 31.99 kg/m2 Steve Yeison MBBS Work Phone: [facility] 09-10-2023 15:50-0400 Body weight 92.67 kg Steve Yeison MBBS Work Phone: [facility] 09-02-2023 07:32-0400 Body height 170.2 cm Steve Yeison MBBS Work Phone: [facility] 08-28-2023 13:33-0400 Body height 170.2 cm Steve Yeison MBBS Work Phone: [facility] 08-28-2023 13:33-0400 Body mass index (BMI) [Ratio] 32.12 kg/m2 Steve Yeison MBBS Work Phone: [facility] 08-28-2023 13:33-0400 Body temperature 97.3 [degF] Steve Yeison MBBS Work Phone: [facility] 08-28-2023 13:33-0400 Body weight 93.03 kg Steve Yeison MBBS Work Phone: [facility] 08-28-2023 13:33-0400 Diastolic blood pressure 41 mm[Hg] Steve Yeison MBBS Work Phone: [facility] 08-28-2023 13:33-0400 Heart rate 116 /min Steve Yeison MBBS Work Phone: [facility] 08-28-2023 13:33-0400 Systolic blood pressure 106 mm[Hg] Steve Yeison MBBS Work Phone: [facility] 06-12-2023 14:50-0400 Body mass index (BMI) [Ratio] 33.8 kg/m2 Rebeca Gutierrez PROPULS[employer] MOTOR AND GENERATOR REPAIRER-THREAD TWISTER Work Phone: [facility] 06-12-2023 14:50-0400 Body temperature 97.3 [degF] Rebeca Gutierrez [employer] MOTOR AND GENERATOR REPAIRER-THREAD TWISTER Work Phone: [facility] 06-12-2023 14:50-0400 Body weight 97.89 kg Rebeca Gutierrez [employer] MOTOR AND GENERATOR REPAIRER-THREAD TWISTER Work Phone: [facility] 06-12-2023 14:50-0400 Diastolic blood pressure 77 mm[Hg] Rebeca Gutierrez PROP[employer] MOTOR AND GENERATOR REPAIRER-THREAD TWISTER Work Phone: [facility] 06-12-2023 14:50-0400 Heart rate 76 /min Rebeca Gutierrez PROPULS[employer] MOTOR AND GENERATOR REPAIRER-THREAD TWISTER Work Phone: [facility] 06-12-2023 14:50-0400 Systolic blood pressure 146 mm[Hg] Rebeca Gutierrez PROPULS[employer] MOTOR AND GENERATOR REPAIRER-THREAD TWISTER Work Phone: [facility] 01-16-2023 08:57-0500 Body height 170.2 cm [facility] 3 Work Phone: [facility] 01-16-2023 08:57-0500 Body mass index (BMI) [Ratio] 33.66 kg/m2 [facility] Work Phone: [facility] 01-16-2023 08:57-0500 Body temperature 97.3 [degF] [facility] Work Phone: [facility] 02-17-2023 08:57-0500 Body weight 97.48 kg [facility] 3 Work Phone: [facility] 01-16-2023 08:57-0500 Diastolic blood pressure 75 mm[Hg] [facility] 3 Work Phone: [facility] 01-16-2023 08:57-0500 Heart rate 76 /min [facility] 3 Work Phone: [facility] 01-16-2023 08:57-0500 Systolic blood pressure 142 mm[Hg] [facility] Work Phone: [facility] 09-10-2022 09:38-0400 Body height 170.2 cm Ryan Yepez MD Work Phone: [facility] 09-10-2022 09:38-0400 Body mass index (BMI) [Ratio] 33.67 kg/m2 Ryan Yepez MD Work Phone: [facility] 09-10-2022 09:38-0400 Body weight 97.52 kg Ryan Yepez MD Work Phone: [facility] 09-10-2022 09:38-0400 Diastolic blood pressure 83 mm[Hg] Ryan Yepez MD Work Phone: [facility] 09-10-2022 09:38-0400 Heart rate 64 /min Ryan Yepez MD Work Phone: [facility] 09-10-2022 09:38-0400 SaO2% (BldA) [Mass fraction] 96 % Ryan Yepez MD Work Phone: [facility] 09-10-2022 09:38-0400 Systolic blood pressure 129 mm[Hg] Ryan Yepez MD Work Phone: [facility] 07-07-2022 13:48-0400 Diastolic blood pressure 76 mm[Hg] Ryan Yepez MD Work Phone: [facility] 07-07-2022 13:48-0400 Heart rate 82 /min Ryan Yepez MD Work Phone: [facility] 07-07-2022 13:48-0400 SaO2% (BldA) [Mass fraction] 96 % Ryan Yepez MD Work Phone: [facility] 07-07-2022 13:48-0400 Systolic blood pressure 141 mm[Hg] Ryan Yepez MD Work Phone: [phone] [address] 06-27-2022 13:32-0400 Body height 170.2 cm Ryan Yepez MD Work Phone: [phone] 06-27-2022 13:32-0400 Body mass index (BMI) [Ratio] 34.24 kg/m2 Ryan Yepez MD Work Phone: [facility] 06-27-2022 13:32-0400 Body temperature 98.6 [degF] Ryan Yepez MD Work Phone: [facility] 06-27-2022 13:32-0400 Body weight 99.16 kg Ryan Yepez MD Work Phone: [facility] 06-27-2022 13:32-0400 Diastolic blood pressure 78 mm[Hg] Ryan Yepez MD Work Phone: [facility] 06-27-2022 13:32-0400 Heart rate 77 /min Ryan Yepez MD Work Phone: [facility] 06-27-2022 13:32-0400 SaO2% (BldA) [Mass fraction] 95 % Ryan Yepez MD Work Phone: [facility] 06-27-2022 13:32-0400 Systolic blood pressure 121 mm[Hg] Ryan Yepez MD Work Phone: [facility] 06-27-2022 10:52-0400 Body height 170.2 cm Rena Brewster RN [facility] 06-27-2022 10:52-0400 Body mass index (BMI) [Ratio] 34.46 kg/m2 Rena Brewster RN [facility] 06-27-2022 10:52-0400 Body temperature 98.2 [degF] Rena Brewster RN [facility] 06-27-2022 10:52-0400 Body weight 99.79 kg Rena Brewster RN [facility] 06-27-2022 10:52-0400 Diastolic blood pressure 73 mm[Hg] Rena Brewster RN [facility] 06-27-2022 10:52-0400 Heart rate 78 /min Rena Brewster RN [facility] 06-27-2022 10:52-0400 Respiratory rate 20 /min Rena Brewster RN [facility] 06-27-2022 10:52-0400 SaO2% (BldA) [Mass fraction] 97 % Rena Brewster RN [facility] 06-27-2022 10:52-0400 Systolic blood pressure 135 mm[Hg] Rena Brewster RN [facility] 06-12-2022 14:23-0400 Body mass index (BMI) [Ratio] 34.59 kg/m2 Steve LEIGH Work Phone: [facility] 06-12-2022 14:23-0400 Body temperature 97 [degF] Steve LEIGH Work Phone: [facility] 06-12-2022 14:23-0400 Body weight 100.2 kg Steve LEIGH Work Phone: [facility] 06-12-2022 14:23-0400 Diastolic blood pressure 66 mm[Hg] Steve Latham MBBS Work Phone: [facility] 06-12-2022 14:23-0400 Heart rate 63 /min Steve Latham MBBS Work Phone: [facility] 06-12-2022 14:23-0400 Systolic blood pressure 133 mm[Hg] Steve Latham MBBS Work Phone: [facility] 05-20-2022 15:21-0400 Body temperature 97.9 [degF] Gian Villatoro MD Work Phone: [facility] 05-20-2022 15:21-0400 Diastolic blood pressure 64 mm[Hg] Gian Villatoro MD Work Phone: [facility] 05-20-2022 15:21-0400 Heart rate 55 /min Gian Villatoro MD Work Phone: [facility] 05-20-2022 15:21-0400 Respiratory rate 15 /min Gian Villatoro MD Work Phone: [facility] 05-20-2022 15:21-0400 SaO2% (BldA) [Mass fraction] 95 % Gian Villatoro MD Work Phone: [facility] 05-20-2022 15:21-0400 Systolic blood pressure 145 mm[Hg] Gian Villatoro MD Work Phone: [facility] 05-19-2022 12:15-0400 Body mass index (BMI) [Ratio] 35.87 kg/m2 Gian Villatoro MD Work Phone: [facility] 05-19-2022 12:15-0400 Body weight 103.92 kg Gian Villatoro MD Work Phone: [facility] Comment on above: standing scale 05-16-2022 16:19-0400 Body height 170.2 cm Gian Villatoro MD Work Phone: [facility] 10-19-2018 08:44-0500 BMI (Body Mass Index) 26.58 kg/m2 [facility] Work Phone: 10-19-2018 08:44-0500 BP Diastolic 76 mm[Hg] [facility] Work Phone: 10-19-2018 08:44-0500 BP Systolic 144 mm[Hg] [facility] Work Phone: 10-19-2018 08:44-0500 Height 172.7 cm [facility] Work Phone: 10-19-2018 08:44-0500 Pulse (Heart Rate) 92 /min [facility] Work Phone: 10-19-2018 08:44-0500 Pulse Oximetry 99 % [facility] Work Phone: 10-19-2018 08:44-0500 Respiratory Rate 16 /min [facility] Work Phone: 10-19-2018 08:44-0500 Weight 79.29 kg [facility] Work Phone: 10-12-2018 09:50-0500 BMI (Body Mass Index) 27.24 kg/m2 [facility] Work Phone: 10-12-2018 09:50-0500 Body Temperature 98.6 [degF] [facility] Work Phone: 10-12-2018 09:50-0500 BP Di[facility] 80 mm[Hg[facility] Work Phone: 10-12-2018 09:50-0500 BP Systolic 157 mm[Hg[facility] Work Phone: 10-12-2018 09:50-0500 Height 169.5 cm [facility] Work Phone: 10-12-2018 09:50-0500 Pulse (Heart Rate) 94 /min [facility] Work Phone: 10-12-2018 09:50-0500 Weight 78.29 kg [facility] Work Phone: Encounters Encounter Date Encounter Type Care Provider Facility Start: 09-08-2024 ambulatory Clementina Montesinos Facility :[facility] Start: 08-24-2024 ambulatory Clementinapattie Montesinos Facility:[facility] Start: 08-23-2024 End: 08-23-2024 ambulatory ZULY BRUNO Not Available Start: 06-23-2024 End: 06-23-2024 ambulatory Meka Munoz [facility] [place] Start: 06-23-2024 End: 06-23-2024 Patient encounter procedure Meka Munoz [facility] [place] Start: 06-17-2024 End: 06-17-2024 Office outpatient visit 25 minutes Daisha Max DO Work Phone: [facility] Comment on above: Liver lesion (Primar y Dx); Liver transplant recipient; High risk medication use; Therapeutic drug monitoring; 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) Start: 06-17-2024 ambulatory DAISHA MAX Facil ity:[facility] Start: 05-26-2024 End: 05-26-2024 ambulatory Evan Bolton [facility] Outpatient [facility] Start: 05-26-2024 End: 05-26-2024 Patient encounter procedure Evan Bolton [facility] Pharm[facility] Outpatient [facility] [place] Start: 05-13-2024 End: 05-13-2024 ambulatory [facility] Start: 04-18-2024 End: 04-18-2024 ambulatory ZULY KIANA Not Available Start: 03-24-2024 End: 03-24-2024 Patient encounter procedure Angel Carpio [facility]armD Pharmacy Outpatient RX [place] Start: 03-24-2024 End: 03-24-2024 ambulatory Angel Carpio [facility]armD Pharmacy Outpatient RX [place] Start: 03-22-2024 [...] Meka Munoz [facility] Pharmacy Outpatient [facility] [place] Start: 03-02-2024 End: 03-02-2024 Patient encounter procedure Meka Munoz [facility] Outpatient [facility] [place] Start: 03-01-2024 ambulatory ZULY KIANA Facility: [facility] Start: 03-01-2024 End: 03-01-2024 ambulatory JOHNNA BRINK Not Available Start: 02-26-2024 ambulatory ZULY KIANA Facility: [facility] Start: 02-26-2024 End: 02-26-2024 Office outpatient new 30 minutes Candie Almaguer MD Work Phone: [employer] [facility] Comment on above: Heart failure, diast olic, acute (Primary Dx) Start: 02-26-2024 ambulatory ZULY ELENZ Facility: [facility] Start: 02-25-2024 End: 02-25-2024 ambulatory FIDELINA SANCHEZ Not Available Start: 02-23-2024 End: 02-23-2024 ambulatory PALMA PALACIOS Not Available Start: 02-11-2024 End: 02-11-2024 ambulatory ZULY KIANA Not Available Start: 01-16-2024 Encounter for other preprocedural examination KELVIN PACHECO [facility] Start: 01-16-2024 End: 01-23-2024 Evaluation and management of inpatient Kevin Sage MD Work Phone: [email or web address] Comment on above: Pleural effusion on right Start: 01-16-2024 End: 01-23-2024 Patient encounter status Kevin Sage MD Work Phone: [facility] Work Phone: Start: 01-12-2024 End: 01-12-2024 ambulatory Angel Fete RPh,PharmD Pharmacy Outpatient RX [place] Start: 01-12-2024 End: 01-12-2024 Patient encounter procedure Angel Fete RPh,PharmD Pharmacy Outpatient RX [place] Start: 01-08-2024 Clinisync Result Encounter Generic External Data Provider [facility] External Department Unsolicited Start: 01-08-2024 Clinisync Result Encounter Generic External Data Provider [facility] External Department Unsolicited Start: 01-06-2024 End: 01-06-2024 Office outpatient visit 25 minutes Zuly Bruno ERP PM Work Phone: [facility] Comment on above: Bilateral lower extr emity edema (Primary Dx); 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); Atherosclerosis 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); Obesity (BMI 30-39.9); DARLENE (obstructive sleep apnea); Tremor; Immunocompromised (CMS/HCC); Primary hypertension (CMS/HCC); Shortness of breath Start: 01-06-2024 End: 01-06-2024 ambulatory ZULY BRUNO Not Available Start: 01-01-2024 Clinisync Result Encounter Generic External Data Provider [facility] External Department Unsolicited Start: 01-01-2024 Clinisync Result Encounter Generic External Data Provider [facility] External Department Unsolicited Start: 11-03-2023 End: 11-03-2023 ambulatory ZULY BRUNO Not Available Start: 10-06-2023 ambulatory Angel Carpio RPh,PharmD Pharmacy Outpatient RX [place] Start: 10-06-2023 Patient encounter procedure Angel Carpio RPh,PharmD Pharmacy Outpatient RX [place] Start: 09-29-2023 [facility] Start: 09-23-2023 [facility] Start: 09-15-2023 ambulatory [facility] Start: 08-28-2023 End: 09-11-2023 Evaluation and management of inpatient Steve Colón Yeison MBBS Work Phone: [email or web address] Start: 08-28-2023 End: 08-28-2023 Office outpatient visit 25 minutes Steve S Yeison MBBS Work Phone: [facility] Comment on above: Immunosuppressed sta tus (Primary Dx); Kidney replaced by transplant; Aftercare following organ transplant; High risk medication use; Other general symptoms and signs; Abnormal blood chemistry; Hypertension secondary to other renal disorders Start: 08-28-2023 ambulatory STEVE LATHAM Facility:[facility] Start: 08-19-2023 ambulatory Meka rueda [facility] Pharmacy Outpatient RX [place] Start: 08-19-2023 Patient encounter procedure Meka Munoz [facility] Pharmacy Outpatient RX [place] Start: 06-12-2023 End: 06-12-2023 Office outpatient visit 25 minutes Stevemassiel Latham MBBS Work Phone: [facility] Comment on above: 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) Start: 06-10-2023 ambulatory Maren Bar RPh,PharmD Pharmacy Outpatient RX [place] Start: 06-10-2023 Patient encounter procedure Maren Bar RPh,PharmD Pharmacy Outpatient RX [place] Start: 04-28-2023 End: 04-29-[address] DOCTOR EVANS Facility:[facility] Start: 03-12-2023 ambulatory Angel Fete RPh,PharmD Pharmacy Outpatient RX [place] Start: 03-12-2023 Patient encounter procedure Angel Fete RPh,PharmD Pharmacy Outpatient RX [place] Start: 03-10-2023 ambulatory Angel Fete RPh,PharmD Pharmacy Outpatient RX [place] Start: 03-10-2023 Patient encounter procedure Angel Carpio RPh,PharmD Pharmacy Outpatient RX [place] Start: 03-02-2023 End: 03-03-[address] DOCTOR EVANS Facility:[facility] Start: 01-16-2023 End: 01-16-2023 Office outpatient visit 25 minutes Daisha Max DO Work Phone: [facility] Comment on [...] MD Work Phone: [facility] Comment on above: BPH with obstruction /lower urinary tract symptoms (Primary Dx); Encounter for screening for malignant neoplasm of prostate Start: 08-28-2022 End: 08-29-2022 ambulatory ROB BRUNO Facility:[facility] Start: 08-14-2022 End: 08-15-[address] DOCTOR EVANS Facility:[facility] Start: 07-07-2022 End: 07-07-2022 Patient encounter procedure Ryan Yepez MD Work Phone: [facility] Comment on above: Other hydronephrosis (Primary Dx); [...] MD Work Phone: [facility] Comment on above: Other hydronephrosis (Primary Dx) [...] LAWR[place] Facility: Start: 03-14-2022 ambulatory Comfort Rivera [facility] Work Phone: Pharmacy Outpatient RX [place] Start: 03-14-2022 Patient encounter procedure Comfort Rivera [facility] Work Phone: Pharmacy Outpatient RX [place] Start: 06-14-2021 End: 06-14-2021 ambulatory Comfort Rivera [facility] Work Phone: [facility] Start: 06-14-2021 Patient encounter procedure Comfort Rivera [facility] Work Phone: [facility] Start: 01-20-2020 End: 01-27-2020 Patient encounter procedure PEPE CASE Facility:[facility] Start: 01-06-2020 End: 01-07-2020 Patient encounter procedure [facility] Start: 01-06-2020 End: 01-06-2020 Subsequent hospital visit by physician [facility] Start: 10-24-2019 End: 10-25-2019 Patient encounter procedure TANA Colón [facility] Start: 10-24-2019 End: 10-24-2019 Subsequent hospital visit by physician [facility] Start: 08-27-2019 End: 08-28-2019 Patient encounter procedure [facility] Start: 08-27-2019 End: 08-27-2019 Subsequent hospital visit by physician [facility] Start: 08-08-2019 End: 08-09-2019 Patient encounter procedure [facility] Start: 08-08-2019 End: 08-08-2019 Subsequent hospital visit by physician [facility] Start: 08-03-2019 End: 08-04-2019 Patient encounter procedure [facility] Start: 08-03-2019 End: 08-03-2019 Subsequent hospital visit by physician [facility] Start: 08-01-2019 End: 08-02-2019 Patient encounter procedure [facility] Start: 08-01-2019 End: 08-01-2019 Subsequent hospital visit by physician [facility] Start: 06-10-2019 End: 06-11-2019 Patient encounter procedure [facility] Start: 06-01-2019 End: 06-02-2019 Patient encounter procedure [facility] Start: 01-14-2019 End: 01-15-2019 Patient encounter procedure [facility] Start: 11-17-2018 End: 11-17-2018 Patient encounter procedure Fidelina Pierson [facility] Pre Transplant Office Comment on above: Social Work Follow-u p Start: 10-19-2018 End: 10-19-2018 Patient encounter Autumn [facility] Pre Transplant Office [...] Start: 10-13-2018 End: 10-13-2018 Patient encounter procedure [facility] Pre Transplant Office Comment on above: Reschedule Outside Medical Allan rds Request Start: 10-12-2018 End: 10-12-2018 Patient encounter procedure Sophie Cary [facility] Pre Transplant Office Comment on above: Alcoholic cirrhosis, unspecified whether ascites present (Primary Dx); Pre-transplant evaluation for liver transplant Start: 10-12-2018 End: 10-12-2018 Office outpatient new 60 minutes Alfredito Restrepo Work Phone: [facility] Pre Transplant Office Comment on above: Alcoholic cirrhosis, unspecified whether ascites present; ESRD (end stage renal disease) on dialysis; Pre-transplant evaluation for liver transplant Start: 10-06-2018 End: 10-06-2018 Patient encounter procedure Yovani Orr Work Phone: Department of Radiology Comment on above: Canceled (Insurance Company Redirected Pt) Start: 10-05-2018 Patient encounter status Comfort Rivera [facility] Work Phone: [facility] Procedures Date Procedure Procedure Detail Performing Clinician Start: 01-23-2024 Glucose measurement, blood Kelvin K Tara MD, MBBS Work Phone: Start: 01-23-2024 Glucose measurement, blood UL Jain MD Work Phone: Start: 01-23-2024 Assay [...] above: Performed By: #### X M ####[facility] ([facility])[address] [place] [address] Start: 01-22-2024 Assay of magnesium Just in [...] 01-20-2024 ITRACONAZOLE LEVEL Jennifer norbert Ortiz Alarcon [facility] Work Phone: Start: 01-20-2024 Oscillating [...] nos quantifica tion each organism Fidelina Alarcon [facility] Work Phone: Start: 01-18-2024 Echocardiography STEVE [...] AURIS SCREEN BY PCR Carol Ann Capps [employer]PA[employer]AM[employer] Work Phone: Start: 01-08-2024 ALL CBC WITH [...] Phone: Start: 09-10-2023 Hepatic function panel Laurel Serraon MD, PhD Work Phone: Start: 09-09-2023 Assay [...] AURIS SCREEN BY PCR Carol Ann Capps PROP[employer] MOTOR AND GENERATOR REPAIRER-[employer]UN EXAMINER Work Phone: Start: 08-28-2023 CBC AND ELECTRONIC [...] above: Performed By: #### C MP #### [facility] [address] [place] [address] Dr. Dwight Waters Start: 07-07-2022 Rmvl nfros tube req fluoro guidance Ryan Yepez MD Work Phone: Start: 06-27-2022 Ct abdomen & pelvis w/o contrast material Evan Byrd MD Work Phone: Start: 06-12-2022 Culture bct isol&prs mptv id isolate ea urine Steve S Yeison MBBS Work Phone: Start: 06-12-2022 EXTRA MICRO Steve S Nor i MBBS Work Phone: Start: 06-12-2022 Hemoglobin glycosylated a1c Steve Latham [facility] Work Phone: Start: 06-12-2022 Hepatic function panel Yovani Orr MD Work Phone: Start: 06-12-2022 URINALYSIS REFLEX TO CULTURE Steve Latham [facility] Work Phone: Start: 05-20-2022 Urography antegrade rs&i [...] MORENOBS Work Phone: History of renal transplant Paulino ey replaced by transplant Rebeca Gutierrez [employer] AND GENERATOR REPAIRER-THREAD TWISTER Work Phone: Plan of Treatment Date Care Activity Detail Author Start: 09-20-2029 Screening for malignant neoplasm of colon [facility] Start: 07-04-2025 Potassium [Moles/volume] in Serum or Plasma POTASSIUM [facility] Start: 06-20-2025 Potassium [Moles/volume] in Serum or Plasma POTASSIUM [facility] Start: 06-16-2025 End: 06-16-2025 Patient encounter procedure [facility] Start: 06-13-2025 Potassium [Moles/volume] in Serum or Plasma POTASSIUM [facility] Start: 05-23-2025 Potassium [Moles/volume] in Serum or Plasma POTASSIUM [facility] Start: 03-28-2025 Potassium [Moles/volume] in Serum or Plasma POTASSIUM [facility] Start: 03-21-2025 Potassium [Moles/volume] in Serum or Plasma POTASSIUM [facility] Start: 02-28-2025 Potassium [Moles/volume] in Serum or Plasma POTASSIUM [facility] Start: 01-23-2025 Potassium [Moles/volume] in Serum or Plasma POTASSIUM [facility] Start: 09-07-2024 End: 09-07-2024 Telemedicine consultation with patient 09/07/2024 3:00 PM EDT Telemedicine Infectious Diseases Care [facility] [address] [facility] 4[address] Floor [place] [phone] Evan White DO [address] [place] [address] Infectious Diseases Care [facility] Start: 08-31-2024 Screening for malignant neoplasm of lung [facility] Start: 07-31-2024 Influenza vaccination INFLUENZA VACCINE (#1) [facility] Start: 06-17-2024 End: 06-17-2024 ambulatory [facility] Start: 06-17-2024 End: 06-17-2024 Patient encounter procedure [facility] Start: 03-22-2024 Fasting lipid profile LIPID SCREENING [facility] Start: 03-22-[address] [facility] Start: 02-26-2024 End: 02-26-2024 Patient encounter procedure 02/26/2024 9:30 AM EDT Office Visit [facility] [address] [place] [address] Candie Almaguer MD [address] [place] [address] [facility] Start: 02-11-2024 End: 02-11-2024 Patient encounter procedure 02/11/2024 10:30 AM EDT Office Visit [facility] [address] [place] [address] Zuly Bruno NP [address] [place] [address] [facility] Start: 02-09-2024 End: 02-09-2024 Telemedicine consultation with patient 02/09/2024 3:30 PM EDT Telemedicine Infectious Diseases Care [facility] [address] [place] [address] [phone] Hakeem Alamo MD [address] [address] Infectious Diseases Care [facility] Start: 01-15-2024 End: 01-15-2024 ambulatory [facility] Start: 01-15-2024 End: 01-15-2024 Patient encounter procedure [facility] Start: 01-06-2024 End: 01-06-2026 Echocardiogram 2D complete Echocardiogram 2D complete Echocardiography Routine DARLENE (obstructive sleep apnea) Primary hypertension (CMS/HCC) Bilateral lower extremity edema Shortness of breath Expected: 01/06/2024 (Approximate), Expires: 01/06/2026 [facility] Work Phone: Comment on above: Expected: 01/06/2024 (Approximate), Expi res: 01/06/2026 Start: 01-06-2024 End: 01-06-2024 Patient encounter procedure 01/06/2024 9:00 AM EST Office Visit [facility] [address] [place] [phone] Zuly Bruno NP [address] [place] [phone] [facility] Start: 12-08-2023 End: 09-07-2024 CT Chest WO contrast [facility] Work Phone: Start: 12-01-2023 COVID-19 VACCINE (2 - Moderna risk series) COVID-19 VACCINE (2 - Moderna risk series) [facility] Start: 09-23-2023 End: 09-23-2023 ambulatory Infect[facility] Diseases Care [facility] Start: 09-23-2023 End: 09-23-2023 Telemedicine consultation with patient 09/23/2023 4:00 PM EDT Telemedicine Infectious Diseases Care [facility] [address] [phone] Hakeem Alamo MD [address] [address] Infectious Diseases Care [facility] Start: 09-15-2023 End: 09-10-[address] [facility] Start: 08-25-2023 End: 08-25-2024 ALLOSCREEN RECIPIENT (POST TX PRA) ALLOSCREEN RECIPIENT (POST TX PRA) Lab Routine Kidney replaced by transplant Aftercare following organ transplant Immunosuppressed status High risk medication use Other general symptoms and signs Abnormal blood chemistry Expected: 08/25/2023, Expires: 08/25/[address] [facility] Comment on above: Expected: 08/25/2023, Expires: Start: 07-31-[address] [facility] Start: 06-12-2023 End: 06-12-2023 Patient encounter procedure 06/12/2023 Office Visit Transplant Surgery Steve Latham JOSH ColónBS [address] [place] [address] [facility] Start: 03-11-2023 End: 03-11-2023 Telemedicine consultation with patient 03/11/2023 Telemedicine Urology Ryan Yepez MD [address] [facility] [address] [place] [phone] [facility] Start: 01-16-2023 End: 01-16-2023 Patient encounter procedure 01/16/2023 Office Visit Transplant Surgery [facility] Start: 10-31-2022 End: 10-31-2022 Patient encounter procedure 10/31/2022 Office Visit Transplant Surgery Steve Latham MBBS [address] [place] [phone] [facility] Start: 09-10-2022 End: 09-10-2023 PSA screening PSA, SCREENING Lab Routine BPH with obstruction/lower urinary tract symptoms Encounter for screening for malignant neoplasm of prostate Expected: 09/10/2022 (Approximate), Expires: 09/10/[address] [facility] Comment on above: Expected: 09/10/2022 (Approximate), Expi res: 09/10/2023 Start: 08-11-2022 End: 08-11-2022 Patient encounter procedure 08/11/2022 Office Visit Urology Ryan Yepez MD [address] [employer] [facility] [address] [place] [address] [facility] Start: 07-31-[address] [facility] Start: 07-07-2022 End: 07-07-2022 Patient encounter procedure 07/07/2022 Office Visit Urology Ryan Yepez MD [address] [facility] [address] [place] [address] [facility] [place] [place] [facility] [place] Start: 07-07-2022 End: 07-07-2023 FLUORO IMAGING FOR UROLOGY [facility] Comment on above: Expected: 07/07/2022, Expires: 3 1 Occurrences starti ng 07/07/2022 until 07/07/2022 Start: 06-27-2022 End: 06-27-2022 Patient encounter procedure 06/27/2022 Office Visit Urology Ryan Yepez MD [address] [facility] [address] [place] [address] [facility] Start: 06-27-2022 End: 06-27-2023 Basic metabolic 2000 panel - Serum or Plasma BASIC METABOLIC PANEL Lab Routine Other hydronephrosis Expected: 06/27/2022, Expires: 06/27/[address] [facility] Comment on above: Expected: 06/27/2022, Expires: 3 Start: 06-27-2022 End: 06-27-2022 Patient encounter procedure 06/27/2022 Appointment Computerized Tomography Scan Ryan Yepez MD [address] [facility] [address] [place] [address] Department of Radiology Start: 06-15-2022 End: 05-16-2023 CT Abdomen and Pelvis WO contrast CT ABDOMEN/PELVIS WITHOUT CONTRAST Imaging Routine FAYE (acute kidney injury) Expected: 06/15/2022 (Approximate), Expires: 05/16/[address] [facility] Work Phone: Comment on above: Expected: 06/15/2022 (Approximate), Expi res: 05/16/2023 Start: 06-12-2022 End: 06-12-2022 Patient encounter procedure 06/12/2022 Office Visit Transplant Surgery Steve Latham MBBS [address] [place] [phone] [facility] Start: 06-11-2022 End: 06-11-2023 BK VIRUS DNA QN, PCR, PLASMA BK VIRUS DNA QN, PCR, PLASMA Lab Routine Kidney replaced by transplant Liver replaced by transplant Abnormal blood chemistry Expected: 06/11/2022, Expires: 06/11/[address] [facility] Comment on above: Expected: 06/11/2022, Expires: Start: 06-04-2022 End: 06-04-2022 Patient encounter procedure 06/04/2022 Office Visit [facility]iology [facility] Start: 10-18-2021 End: 10-18-2021 Patient encounter procedure 10/18/2021 Office Visit Transplant Surgery Steve Latham MBBS [address] [place] [phone] [facility] Start: 07-31-2021 Influenza vaccination INFLUENZA VACCINE (#1) [facility] Start: 07-26-2021 End: 07-26-2021 Patient encounter procedure 07/26/2021 Office Visit Transplant Surgery [facility] Start: 2021 Prostate specific antigen measurement [facility] Start: 2021 Screening for malignant neoplasm of lung LUNG CANCER SCREENING [facility] Start: 2021 Zoster vaccine hzv live for subcutaneous use ZOSTER (SHINGLES) VACCINE (1 of 2) [facility] Start: 09-20-2020 Colonoscopy COLORECTAL CANCER SCREENING DISCUSSION [facility] Start: 09-20-2020 Screening for malignant neoplasm of colon [facility] Start: 07-31-2019 Influenza vaccination Flu vaccine (#1) [place] Start: 06-23-2019 Annual Wellness Visit (AWV) Annual Wellness Visit (AWV) [facility] [place] [place] Start: 04-18-2019 End: 10-19-2019 Ultrasonography of abdomen US ABDOMEN RUQ/LIVER/GB Routine Cirrhosis of liver without ascites, unspecified hepatic cirrhosis type Expected: 04/18/2019 (Approximate), Expires: 10/19/2019 [facility] Work Phone: Comment on above: Expected: 04/18/2019 (Approximate), Expi res: 10/19/2019 Start: 01-25-2019 End: 01-25-2019 Ambulatory 01/25/2019 Office Visit Gastroenterology Christin Elizabeth, PROP[employer]OR AND GENERATOR REPAIRER-THREAD TWISTER [address] [address] Division of Gastroenterology and Hepatology Gavin Start: 11-19-2018 End: 11-19-2018 Ambulatory 11/19/2018 Appointment Pulmonary Diagnostics [facility] Start: 11-19-2018 End: 11-19-2018 Ambulatory [facility] Start: 10-19-2018 End: 10-19-2018 Ambulatory Ultrasound Jakob Start: 10-12-2018 End: 10-12-2019 Hemoglobin A1c/Hemoglobin.total mass fraction (Bld) HEMOGLOBIN A1C Routine Alcoholic cirrhosis, unspecified whether ascites present Pre-transplant evaluation for liver transplant Expected: 10/12/2018, Expires: 10/12/2019 [facility] Work Phone: Comment on above: Expected: 10/12/2018, Expires: 9 Start: 10-12-2018 End: 10-12-2019 TYPE AND SCREEN - NOT FOR TRANSFUSION TYPE AND SCREEN - NOT FOR TRANSFUSION Routine Alcoholic cirrhosis, unspecified whether ascites present Pre-transplant evaluation for liver transplant Expected: 10/12/2018, Expires: 10/12/2019 [facility] Work Phone: Comment on above: Expected: 10/12/2018, Expires: 9 Start: 07-31-2018 Influenza vaccination INFLUENZA VACCINE (#1) [facility] Work Phone: Start: 2011 Fasting lipid profile LIPID SCREENING [facility] Work Phone: Start: 2011 Lipid screen Lipid screen [place], [place] Start: 1990 DTaP/Tdap/Td vaccine (1 - Tdap) DTaP/Tdap/Td vaccine (1 - Tdap) [place] Start: 1990 Hepatitis B vaccination HEP B VACCINE (1 of 3 - 19+ 3-dose series) [facility] Start: 1990 Hepatitis B Vaccine (1 of 3 - Risk Recombivax 3-dose series) Hepatitis B Vaccine (1 of 3 - Risk Recombivax 3-dose series) [place], [place] Start: 1990 Third diphtheria, tetanus and acellular pertussis (DTaP) vaccination [facility] Start: 1990 Zoster vaccine hzv live for subcutaneous use ZOSTER (SHINGLES) VACCINE (1 of 2) [facility] Start: [address] [facility] Start: 1989 Tetanus vaccination TETANUS [facility] Start: 1986 HIV screen HIV screen [place], [place] Start: 02-17-1984 HIV screening HIV SCREENING DISCUSSION [facility] Work Phone: Start: 1983 COVID-19 VACCINE (1) COVID-19 VACCINE (1) [facility] Start: 1982 DTaP/Tdap/Td vaccine (1 - Tdap) DTaP/Tdap/Td vaccine (1 - Tdap) [place] Start: 1977 Pneumococcal 0-64 years Vaccine (1 of 3 - PCV13) Pneumococcal 0-64 years Vaccine (1 of 3 - PCV13) [place], [place] Start: 1977 PNEUMOCOCCAL VACCINE SERIES (1 - PCV) PNEUMOCOCCAL VACCINE SERIES (1 - PCV) [facility] Start: 1977 PNEUMOCOCCAL VACCINE SERIES (1 of 2 - PCV) PNEUMOCOCCAL VACCINE SERIES (1 of 2 - PCV) [facility] Start: [address] [facility] Start: 02-17-1976 COVID-19 VACCINE (#1) COVID-19 VACCINE (#1) [facility] Start: 02-17-[address] [facility] Start: 1971 COVID-19 VACCINE (#1) COVID-19 VACCINE (#1) [facility] Start: 1971 Hepatitis B vaccination HEP B VACCINE (1 of 3 - 3-dose series) [facility] Start: 1971 Medicare Annual Wellness (AWV) Medicare Annual Wellness (AWV) [facility] Start: 1971 Screening for malignant neoplasm of colon [facility] Start: [address] [facility] BK VIRUS DNA QN, PCR , PLASMA BK VIRUS DNA QN, PCR, PLASMA Lab Routine Kidney replaced by transplant Liver replaced by transplant Abnormal blood chemistry 06/12/2022 3:[address] [facility] CALCULI, URINARY (KIDNEY STONE) CALCULI, URINARY (KIDNEY STONE) Fluids Routine 05/19/2022 8:[address] [facility] Work Phone: CANNABINOIDS, QUANT (URINE)THC CONFIRMATION CANNABINOIDS, QUANT (URINE)THC CONFIRMATION Routine Alcoholic cirrhosis, unspecified whether ascites present ESRD (end stage renal disease) on dialysis Pre-transplant evaluation for liver transplant 10/12/2018 12:57 PM [facility] Work Phone: End: 09-10-2024 CHEM 6 (LYTES, BUN CREA) [facility] EBV VCA IGG AB EBV VCA IGG AB R outine Alcoholic cirrhosis, unspecified whether ascites present ESRD (end stage renal disease) on dialysis Pre-transplant evaluation for liver transplant 10/12/2018 12:57 PM [facility] Work Phone: Fungus identified in Unspecified specimen by Culture [facility] HLA TYPING (SOLID ORGAN) HLA TYPING (SOLID ORGAN) Routine Alcoholic cirrhosis, unspecified whether ascites present ESRD (end stage renal disease) on dialysis Pre-transplant evaluation for liver transplant 10/12/2018 12:57 PM [facility] Work Phone: HSV 1 AND 2 IGG ANTIBODY HSV 1 AND 2 IGG ANTIBODY Routine Alcoholic cirrhosis, unspecified whether ascites present ESRD (end stage renal disease) on dialysis Pre-transplant evaluation for liver transplant 10/12/2018 12:57 PM [facility] Work Phone: MR Abdomen WO and W contrast IV MRI ABDOMEN WITH AND WITHOUT CONTRAST Imaging Routine Liver lesion Ordered: 06/17/[address] [facility] Comment on above: Ordered: 06/17/2024 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 specific culture [facility] PLACEMENT NEPHROSTOM Y CATHETER PERCUTANEOUS W/ IMAGE GUIDANCE PLACEMENT NEPHROSTOMY CATHETER PERCUTANEOUS W/ IMAGE GUIDANCE Imaging Routine Hydronephrosis due to obstruction of ureteral orifice FAYE (acute kidney injury) 05/17/2022 11:[address] [facility] TX POST VOID RESIDUAL TX POST VO ID RESIDUAL TX - OFFICE PERFORMED Routine BPH with obstruction/lower urinary tract symptoms Ordered: 09/10/[address] [facility] Comment on above: Ordered: 09/10/2022 PTH INTACT PTH INTACT Routi ne Alcoholic cirrhosis, unspecified whether ascites present ESRD (end stage renal disease) on dialysis Pre-transplant evaluation for liver transplant 10/12/2018 12:57 PM [facility] Work Phone: RUBEOLA IGG AB (IMMU NE STATUS) RUBEOLA IGG AB (IMMUNE STATUS) Routine Alcoholic cirrhosis, unspecified whether ascites present ESRD (end stage renal disease) on dialysis Pre-transplant evaluation for liver transplant 10/12/2018 12:57 PM [facility] Work Phone: End: 01-16-2024 Standard ECG ECG ECG Routine One Time for 1 Occurrences starting 01/16/2024 until 01/16/[address] [facility] Comment on above: One Time for 1 Occurrences starting 12/31 until 01/16/2024 End: 10-12-2024 TACROLIMUS LEVEL, TROUGH (PRE DRUG LEVEL) [facility] VARICELLA IGG AB (IM M STATUS) VARICELLA IGG AB (IMM STATUS) Routine Alcoholic cirrhosis, unspecified whether ascites present ESRD (end stage renal disease) on dialysis Pre-transplant evaluation for liver transplant 10/12/2018 12:57 PM EST [facility] Work Phone: Immunizations Immunization Date Immunization Notes Care Provider Fa cility 11-03-2023 influenza virus vacc ine, unspecified formulation Generic Provider [facility] 11-03-2023 Moderna SARS-CoV-2 50mcg/0.5mL Booster Generic Provider [facility] Payers Date Payer Category Payer Unknown [id number] 2019 Unknown [facility] [id number] 2019-Present [id number] 2018 Medicaid MEDICAID [facility] DEPT OF JOB xxxxxxxxxxxx 2018-Present [phone] [address] [place] [address] xxxxxxxxxxxx [id number] .[id number] 2018 Medicaid MEDICAID MEDICAI D [id number] 2018-Present [address] [place] [address] [id number] .[id number] 2018 Medicaid [id number] [id number] .[id number] 2018 Medicare MEDICARE MEDICAR E PART A AND B xxxxxxxxxxx 2018-Present [phone] [place] [address] xxxxxxxxxxx [id number] .[id number] 2018 Medicare [id number] 2018 Medicare MEDICARE MEDICAR E A AND B [id number] 2018-Present [address] [place] [address] [id number] .302069.315 2018 Medicare [id number]. 1.13.172.2.7.3 .622158.315 1971 Unknown [id number] 2.16.840.1.202065.3.579.2.173 1971 Unknown [id number] 2.16.840.1.267633.3.579.2.173 1971 Unknown [id number] 2.16.840.1.946557.3.579.2.173 1971 Unknown [id number] 2.16.840.1.706379.3.579.2.173 1971 Unknown [id number] 2.16.840.1.813356.3.579.2.173 1971 Unknown [id number] 2.16.840.1.428066.3.579.2.173 1971 Unknown [id number] 2.16.840.1.993720.3.579.2.173 1971 Unknown [id number] 2.16.840.1.841022.3.579.2.173 1971 Unknown [id number] 2.16.840.1.030418.3.579.2.647 1971 Unknown [id number] 2.16.840.1.133364.3.579.2.593 1971 Unknown [id number] 2.16.840.1.068263.3.579.2.593 1971 Unknown [id number] 2.16.840.1.401418.3.579.2.593 1971 Unknown [id number] 2.16.840.1.318479.3.579.2.593 1971 Unknown [id number] 2.16.840.1.405439.3.579.2.593 1971 Unknown [id number] 2.16.840.1.270358.3.579.2.593 1971 Unknown [id number] 2.16.840.1.756257.3.579.2.593 1971 Unknown [id number] 2.16.840.1.511100.3.579.2.593 1971 Unknown [id number] .16.840.1.309350.3.579.2.593 1971 Unknown [id number] 2.16.840.1.796054.3.579.2.593 1971 Unknown [id number] 2.16.840.1.473067.3.579.2.593 1971 Unknown [id number] 2.16840.1.476575.3.579.2.593 1971 Unknown [id number] 2.16.840.1.217296.3.579.2.593 1971 Unknown [id number] 2.16.840.1.258121.3.579.2.593 1971 Unknown [id number] 2.16.840.1.208934.3.579.2.593 1971 Unknown [id number] 2.16.840.1.519887.3.579.2.594 1971 Unknown [id number] .16.840.1.828877.3.579.2.594 1971 Unknown [id number] 2.16.840.1.341292.3.579.2.594 1971 Unknown [id number] 2.16.840.1.572691.3.579.2.594 1971 Unknown [id number] .16.840.1.024341.3.579.2.594 1971 Unknown [id number] 2.16.840.1.532102.3.579.2.594 1971 Unknown [id number] 2.16.840.1.166086.3.579.2.594 1971 Unknown [id number] 2.16.840.1.627961.3.579.2.594 1971 Unknown [id number] 2.16.840.1.087905.3.579.2.594 1971 Unknown [id number] 2.16.840.1.587144.3.579.2.594 1971 Unknown [id number] 2.16.840.1.289058.3.579.2.594 1971 Unknown [id number] 2.16.840.1.688570.3.579.2.594 1971 Unknown [id number] 2.16.840.1.989025.3.579.2.125 9 1971 Unknown [id number] 2.16.840.1.511423.3.579.2.125 9 1971 Unknown [id number] 2.16.840.1.739928.3.579.2.125 9 1971 Unknown [id number] 2.16.840.1.652099.3.579.2.125 9 1971 Unknown [id number] 2.16.840.1.735741.3.579.2.125 9 1971 Unknown [id number] 2.16.840.1.458295.3.579.2.125 9 1971 Unknown [id number] 2.16.840.1.606808.3.579.2.125 9 1971 Unknown [id number] 2.16.840.1.292639.3.579.2.125 9 1971 Unknown [id number] 2.16.840.1.602127.3.579.2.125 9 1971 Unknown [id number] 2.16.840.1.804474.3.579.2.125 9 1971 Unknown [id number] 2.16.840.1.788894.3.579.2.125 9 1971 Unknown [id number] 2.16.840.1.514141.3.579.2.125 9 1971 Unknown [id number] 2.16.840.1.088994.3.579.2.125 9 1971 Unknown [id number] 2.16.840.1.967238.3.579.2.125 9 1971 Unknown [id number] 2.16.840.1.710761.3.579.2.125 9 1971 Unknown [id number] 2.16.840.1.756521.3.579.2.727 1959 Medicaid [id number] 1958 Medicare [id number] Social History Date Type Detail Facility Start: 07-19-2018 End: 10-19-2018 Tobacco smoking status NHIS Former smoker [facility] Start: 07-19-1988 End: 05-14-2018 History of tobacco use Current smoker [facility] Work Phone: Start: 07-19-1988 End: 05-14-2018 History of tobacco use Cigarette Smoker [facility] Work Phone: Start: 10-19-2018 End: 06-17-2024 Cigarettes smoked current (pack per day) - Reported [facility] End: 07-19-1994 History of tobacco use Chews Tobacco [facility] Work Phone: Start: 1971 Sex Assigned At Not on file [facility] Work Phone: Start: 11-03-2018 Alcohol intake Current non-drinker of [facility] (finding[facility] [place] Start: 06-22-2018 Alcohol Comment Hx of alcoholism [place] Start: 11-03-2018 End: 06-17-2024 Alcohol intake No [facility] Start: 07-19-2018 Tobacco use and exposure Former user [facility] Start: 09-06-2020 End: 06-17-2024 Alcohol intake Ex-drinker (finding) [facility] Start: 07-19-2018 Alcohol Comment stopped 05/14/[address] [facility] Start: 05-05-2022 End: 01-16-2023 Exposure to SARS-CoV-2 (event) Not sure [facility] Start: 07-07-2018 Gender identity Identifies as male gender (finding) [facility] Start: 01-16-2022 Sexual orientation Heterosexual (finding) [facility] Start: 11-03-2023 Tobacco use and [...] Dates [id number] Start: 05-23-2020 [id number] Start: 04-12-2020 [id number] [facility] Start: 05-17-2022 Comment on above: Description: Implant time-out completed by intra-procedural staff including this RN, electrical controls technician, and performing physician. The following was [...] Required: No Receive/Pickup Date: 06/29/2024 Shipping Address: [address] [place] [address] Contact Info: Specialty ([place]) [phone] Jakob [phone] [facility] [phone] [place] [phone] Bedside Delivery ([facility]) [phone] documented in this encounter [facility] 06-17-2024 History of Present illness Narrative -Referring Provider for today's consult: Self, Self -Primary Care Provider: Zuly Bruno History of Present Illness George Styles is a 54 y.o. male who presents to the [facility] Transplant Hepatology Clinic today for [...] Left; Surgeon: Jyoti Bryant MD, PhD; Location: [facility] MAIN OR PLACEMENT NEPHROSTOMY CATHETER PERCUTANEOUS W/ IMAGE GUIDANCE 05/17/2022 Surgeon: Enzo Heart DO; Location: [facility] INTERVENTIONAL RADIOLOGY (VIR) LIVER TRANSPLANT, ORTHOTOPIC N/A 04/12/2020 Laterality: N/A; Surgeon: LU Palma; Location: [facility] SAME DAY SURGERY MAIN OR KIDNEY TRANSPLANT W/O AGDAAGUX NEPHRECTOMY N/A 04/12/2020 Laterality: N/A; Surgeon: LU Palma; Location: [facility] SAME DAY SURGERY MAIN OR [...] 0.2 06/13/2024 Explant Pathology Pathologic Diagnosis A. [place] liver, orthotopic liver transplant resection (1458 gram): [...] up in 1 year. Daisha Max DO Cooker Process Cheese Gastroenterology, Hepatology and Nutrition [facility] Pager: [phone] Images from the original note were not included. 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 Residential Roofer: Anayeli Burt Date of Liver Transplant: 04/13/2020 (Kidney), 04/13/2020 (Liver) 4 years, 2 months post Liver/Kidney Transplant Primary Disease: Hypertensive Nephrosclerosis Transplant Director Supply: Erma Roe/ Daisha Max Primary Care physician: [...] LAB AND PHARMACY: None Specified [id number] [place] [address] - [address] [facility] [address] [facility] [address] [facility] [address] [place] [address] [id number] [place] [address] [address] [facility] [address] [facility] [address] [facility] Out[facility] Pharm[facility] [address], [address] [place] [address] ROS and SCREEN: Chest Pain: negative Cough: [...] year: no Do you follow with a Corporate Meeting Planner? yes Do you have a Primary Care [...] ADDRESS WITH PHYSICIAN: documented in this encounter [facility] 06-17-2024 Instructions Ashlee Fair RN - 06/17/2024 10:00 AM EDT - No medication changes from a liver standpoint - A MRI Abdomen has been ordered today. Please call central scheduling at [phone] to schedule or take paper copy to your local hospital - Return to clinic 06/16/2025 TRANSPLANT HEPATOLOGY 3, [facility] as scheduled documented in this encounter [facility] 06-17-2024 History of Present illness Narrative Images from the original note were not included. George Styles is a 54 y.o. 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 No longer follows with a local automotive parts person. History of Present Illness: Since George was [...] and lab results. Rebeca Gutierrez MSN, RN, PROPULSION MOTOR AND GENERATOR REPAIRER-BC, CCTN Certified Nurse Practitioner [facility] [address] [place] [address] [facility] 06-17-2024 Instructions JEANNA Hess - 06/17/2024 9:30 AM EDT Tacrolimus - increase to 0.2 mg packet three time per day; goal 3 to 5 ng/dL ; when the itraconazole stops 09/03/2024, reduce to 0.5 mg twice daily. Once your tacrolimus level is 3-5 ng/dL, you may reduce labs to every other week. documented in this encounter [facility] 05-26-2024 History of Present illness Narrative [facility] RX OUTREACH ADVANCED: Call Information: Date and Time of Contact: 05/26/2024 4:35 PM Method of Contact: By Phone Contact Type: Prescriptions Contactor: [facility] OP Contactee: Patient Contact Outcome: Left message and Follow-up Contact Info: Specialty ([place]) [phone] Jakob [phone] [facility] [phone] David [phone] Bedside Delivery ([facility]) [phone] [facility] RX OUTREACH ADVANCED: Call Information: Date and Time of Contact: 05/30/2024 4:52 PM Method of Contact: By Phone Contact Type: Prescriptions Contactor: Patient Contactee: [facility] OP Shipping/Pickup: Medicare B Refill?: No Medication Name: Myco sod 360mg, Prograf 0.2mg Delivery Method: Ship Delivery Location: Home Signature Required: No Receive/Pickup Date: 06/06/2024 Shipping Address: [address] [place] [address] Contact Info: Specialty ([place]) [phone] Jakob [phone] [facility] [phone] David [phone] Bedside Delivery ([facility]) [phone] documented in this encounter [facility] 05-13-2024 Note [place] Cardiology - [facility] Subjective George Styles is a [...] , Rfl: t (more content not included)... [facility] 03-24-2024 History of Present illness Narrative [facility] RX OUTREACH ADVANCED: Call Information: Date and Time of Contact: 03/24/2024 4:14 PM Method of Contact: By Phone Contact Type: Prescriptions Contactor: [facility] OP Contactee: Patient Contact Outcome: Left message Shipping/Pickup: Medication Name: Prograf 0.2mg pack Contact Info: Specialty ([place]) [phone] [facility] [phone] [facility] [phone] David [phone] Bedside Delivery ([facility]) [phone] [facility] OP RX OUTREACH ADVANCED: Call Information: Date and Time of Contact: 03/28/2024 3:58 PM Method of Contact: By Phone Contact Type: Prescriptions Contactor: [facility] OP Contactee: Patient Contact Outcome: Left message and Call back later Shipping/Pickup: Medication Name: Mycophenolate, prograf Contact Info: Specialty ([place]) [phone] [facility] [phone] [facility] [phone] David [phone] Bedside Delivery ([facility]) [phone] [facility] RX OUTREACH ADVANCED: Call Information: Method of Contact: By Phone Contact Type: Prescriptions Contactor: Patient Contactee: [facility] OP Shipping/Pickup: Medicare B Refill?: No Medication Name: Mycopheolate 360mg and Prograf Delivery Method: Ship Delivery Location: Home Signature Required: No Receive/Pickup Date: 04/04/2024 Shipping Address: [address] [place] [address] [address] Contact Info: Specialty ([place]) [phone] [facility] [phone] [facility] [phone] David [phone] Bedside Delivery ([facility]) [phone] documented in this encounter [facility] 03-24-2024 History of Present illness Narrative [facility] RX OUTREACH ADVANCED: Call Information: Date and Time of Contact: 03/24/2024 4:14 PM Method of Contact: By Phone Contact Type: Prescriptions Contactor: [facility] Contactee: Patient Contact Outcome: Left message Shipping/Pickup: Medication Name: Prograf 0.2mg pack Contact Info: Specialty ([place]) [phone] [facility] [phone] [facility] [phone] David [phone] Bedside Delivery ([facility]) [phone] [facility] OP RX OUTREACH ADVANCED: Call Information: Date and Time of Contact: 03/28/2024 3:58 PM Method of Contact: By Phone Contact Type: Prescriptions Contactor: [facility] Contactee: Patient Contact Outcome: Left message and Call back later Shipping/Pickup: Medication Name: Mycophenolate, prograf Contact Info: Specialty ([place]) [phone] [facility] [phone] [facility] [phone] David [phone] Bedside Delivery ([facility]) [phone] [facility] RX OUTREACH ADVANCED: Call Information: Method of Contact: By Phone Contact Type: Prescriptions Contactor: Patient Contactee: [facility] OP Shipping/Pickup: Medicare B Refill?: No Medication Name: Mycopheolate 360mg and Prograf Delivery Method: Ship Delivery Location: Home Signature Required: No Receive/Pickup Date: 04/04/2024 Shipping Address: [address] [place] [address] [address] Contact Info: Specialty ([place]) [phone] Jakob [phone] [facility] [phone] David [phone] Bedside Delivery ([facility]) [phone] [facility] RX OUTREACH ADVANCED: Pre-Verification/Specialty Assessment/Disease [...] Within normal limits Contact Info: Specialty ([place]) [phone] Jakob [phone] [facility] [phone] [facility] [phone] Bedside Delivery ([facility]) [phone] documented [facility] this [facility] 03-02-2024 History of Present illness [...] del of broth Contact Info: Specialty ([place]) [phone] [facility] [phone] [facility] [phone] David [phone] Bedside Delivery ([facility]) [phone] [facility] RX OUTREACH ADVANCED: Call Information: Date and Time of Contact: 03/02/2024 3:49 PM Method of Contact: By Phone Contact Type: Prescriptions Contactor: [facility] OP Contactee: Patient Contact Outcome: Left message and Follow-up Shipping/Pickup: Medication Name: Myco 360mg and Prograf 0.2mg Contact Info: Specialty ([place]) [phone] [facility] [phone] [facility] [phone] David [phone] Bedside Delivery ([facility]) [phone] [facility] RX OUTREACH ADVANCED: Call Information: Date and Time of Contact: 03/02/2024 4:08 PM Method of Contact: By Phone Contact Type: Prescriptions Contactor: [facility] OP Contactee: Patient Shipping/Pickup: Medicare B Refill?: No Medication Name: Myco 360 / prograf 0.2 Delivery Method: Ship Delivery Location: Home Signature Required: No Receive/Pickup Date: 03/03/2024 Shipping Address: [address] [place] [address] [address] Contact Info: Specialty ([place]) [phone] Jakob [phone] [facility] [phone] David [phone] Bedside Delivery ([facility]) [phone] documented in this encounter [facility] 02-26-2024 History of Present illness Narrative [...] [facility] on 02/26/2024 for initial evaluation of [...] Left; Surgeon: Jyoti Bryant MD, PhD; Location: [facility] MAIN OR PLACEMENT NEPHROSTOMY CATHETER PERCUTANEOUS W/ IMAGE GUIDANCE 05/17/2022 Surgeon: Enzo Heart DO; Location: [facility] INTERVENTIONAL RADIOLOGY (VIR) LIVER TRANSPLANT, ORTHOTOPIC N/A 04/12/2020 Laterality: N/A; Surgeon: LU Palma; Location: [facility] SAME DAY SURGERY MAIN OR KIDNEY TRANSPLANT W/O AGDAAGUX NEPHRECTOMY N/A 04/12/2020 Laterality: N/A; Surgeon: LU Palma; Location: [facility] SAME DAY SURGERY MAIN OR [...] qd Antithrombotic: no Statin: no ICD: NA DUCT LAYER HELPER: NA CV Test results: ECHOCARDIOGRAM 01/18/2024 (Final) [...] be BP control. Candie Almaguer M.D. aircraft powerplant repairer Advanced Heart Failure Program Division of Cardiovascular Medicine [facility] [email or web address] [phone] fax [phone] documented in this encounter [facility] 02-26-2024 Instructions Marsha Mckeon RN - 02/26/2024 9:30 AM EDT The following instructions were given today: Labs today Follow up with Dr. Almaguer as needed. Your after visit summary (AVS) is viewable in [facility] My Chart. Call RN if you have cardiac questions/concerns M-F 8 to 4:30 ; office # [phone], option 6, then option 2. Guidelines for home management: 1. Continue to monitor weight first thing each morning. 2. Report to the CHF CLINIC ([phone]) any significant weight change. Remember that weight [...] to have labs/tests run outside of the [facility] and you do not hear from us 1-2 days after they are performed, you must call us to ensure we received the results. Office fax # [phone]. No news does not necessarily mean that your tests are normal, it could mean we did not get the results. For questions/updates: please provide your name with spelling, date of and question or update All calls are prioritized and responses researched, if possible, prior to calls being returned. Call Scheduling for any appointment/procedure verification or changes [phone], option 7 or [facility] Heart Schedulers at [phone], option 1. documented in this encounter [facility] 01-23-2024 Nurse Note Jakob wrap & [...] to transport home on home oxygen supply. [facility] 01-23-2024 Miscellaneous Notes Jakob wrap & [...] verbalization of pain descriptors George Feliz Jensen ([id number]) PRE OPERATIVE DIAGNOSIS High output congestive heart failure [I50.83] POST OPERATIVE DIAGNOSIS Post-Op Diagnosis Codes: * High output congestive heart failure [I50.83] PROCEDURE PERFORMED Procedure(s) (LRB): LIGATION ANGIOACCESS AVF (Left) Resection of large aneurysmic vein PRIMARY CLOSURE Yes INTRAOPERATIVE FINDINGS No significant abnormalities SURGEON Surgeons and Role: * Jyoti Bryant MD, PhD - Primary ANESTHESIOLOGIST Anesthesiologist: Celena Tiwari MD; Kehinde Gutierrez MD INFANTRYMAN: David Jasso APRN-INFANTRYMAN Finance Clerk Assisting: Mini Khan MD SURGICAL STAFF Engineering Department Chair: Zoila Lawrence RN Relief Engineering Department Chair: Marimar Saravia RN Relief Scrub: Briseyda Self [...] Axillary block. SURGEON(S): Jyoti Bryant MD, PHD GIFT BASKET PACKER: Mynor Fall MD ESTIMATED BLOOD LOSS: Minimal. [...] Jyoti Bryant MD, PHD ATTENDING SHANNON/Constanza JOB: [id number] DOC: [id number] Patient has been asleep this shift. He [...] overnight coverage, Jasper Gastelum MD, via pager #[phone] Pt- George Styles. Sarah 1082. TM1. Was wondering if he can have his Melatonin order increased to 6mg. Per pt, he usually takes 8mg at home. -SAMI Duffy #[phone] Tati Charles RN Internal Medicine Daily Progress Note Patient: George Styles, 1970, [id number] Physician: Arelis Mera MD, PGY3, Pager #[phone], TM1 service Assessment/Plan: George Styles is a [...] home amlodipine 5mg CAD: non-obstructive CAD on [facility] 2018. - continue home aspirin 81mg daily, [...] MD Mr. Styles was admitted to [address] [place] [address]. On admission to 0, from outside facility a dual RN initial assessment of skin condition was performed by Izzy Gutierrez RN and Leroy Singleton RN. Skin Assessment: Skin within defined limits:Yes Jose Score: 20 Wound Vision Forestry Support Specialist images obtained: No LDA Added: No Based [...] station when available. documented in this encounter [facility] 01-23-2024 Nurse Note Home Oxygen Qualification [...] at 4L of oxygen is also required.) [facility] 01-23-2024 History of Present illness Narrative [...] mg Oral Daily Kelvin Pacheco MD, MBBS natural resources professor Transplant nephrology Surgery Post-Op Check Note [...] monitor Leonel Harris DO General Surgery Pager [phone] CM went to bedside to talk with patient. Patient states he has home oxygen through [employer]. He uses 2.5 LNC around the clock. Patient states his brother will bring a tank for discharge. Anticipate patient will discharge tomorrow AM. Brother updated. Girish Oro RN, BSN Clinical Librarian Helper Please note that I am a float piano case maker and may not cover the same service every day. Please call the main Case Management office at [phone] for up-to-date coverage. Verified patients identity using [...] Daily Progress Note Patient: George Styles, 1970, [id number] Physician: Yury Ozuna MD, PGY1, Pager #[phone], TM1 service Assessment/Plan: George Styles is a [...] by transplant surgery on 01/22 (NPO at ia, updated type & screen) S/p Liver-Kidney Transplant [...] with the Nutrition plan outlined in the Process Safety Management Engineer s note. DVT prophylaxis with lovenox Diet [...] in resident note. Kelvin Pacheco MD, MBBS natural resources professor Transplant nephrology Patient seen and examined [...] Oral BID AC Kelvin Pacheco MD, MBBS natural resources professor Transplant nephrology Images from the original note were not included. Internal Medicine Daily Progress Note Patient: George Styles, 1970, [id number] Physician: Yury Ozuna MD, PGY1, Pager #[phone], TM1 service Assessment/Plan: George Styles is a [...] home amlodipine 5mg CAD: non-obstructive CAD on [facility] 2018. - continue home aspirin 81mg daily, [...] with the Nutrition plan outlined in the Process Safety Management Engineer s note. DVT prophylaxis with lovenox Diet [...] Provider: Zuly Bruno NP Pharmacy: [facility] [place] Other Comments: Patient reported his Last Home Dose of mycophenolate and tacrolimus was on 01/15/24 at 0700. Medications that need removed from Outside Medication Reconciliation list: Please remove all medications. Please feel free to contact me with any further questions. Name: Heidy Chatman Phone #: [phone] Date/Time: 01/19/2024 12:08 PM Time Spent: 15 minutes Associated attestation - Fidelina Alarcon RPH - 01/19/2024 12:41 PM EST Department of Pharmacy Admission Medication Reconciliation Note Patient: George Styles Room/Bed: 1082/A I have reviewed the home medication list with the Tire Molder. The home medication list status is: complete. All changes to the home medication list have been updated in [facility]. Updated ENGINEERING TEST MECHANIC Med List: Prior to Admission Medications Prescriptions [...] with any further questions. Name: Fidelina Ortiz Dorian, [facility] Phone #: [phone] Date/Time: 01/19/2024 12:41 PM Internal Medicine Daily Progress Note Patient: George Styles, 1970, [id number] Physician: Yury Ozuna MD, PGY1, Pager #[phone], WU3 service Assessment/Plan: Acute Hypoxic Respiratory Insufficiency GARCIA, [...] home amlodipine 5mg CAD: non-obstructive CAD on [facility] 2018. - continue home aspirin 81mg daily, [...] with the Nutrition plan outlined in the Process Safety Management Engineer s note. DVT prophylaxis with lovenox Diet DIET HEART HEALTHY - 4 GM SODIUM Disposition: home pending clinical improvement and evaluation Code status is Full Code Discussed with team and attending, Kelvin Pacheco MD, MBBS , on rounds. Signed, Yury Ozuna, MD PGY-1 Subjective/Interval History: No acute events [...] mg Oral Daily Kelvin Pacheco MD, MBBS natural resources professor Transplant nephrology Internal Medicine Daily Progress Note Patient: George Styles, 1970, [id number] Physician: Yury Ozuna MD, PGY1, Pager #[phone], TM1 service Assessment/Plan: Updates: - continued diuresis [...] home amlodipine 5mg CAD: non-obstructive CAD on [facility] 2018. - continue home aspirin 81mg daily, [...] with the Nutrition plan outlined in the Process Safety Management Engineer s note. DVT prophylaxis with lovenox Diet [...] in resident note. Kelvin Pacheco MD, LU natural resources professor Transplant nephrology Pt known to parcel post delivery from previous admissions. Provided emotional and spiritual support. Patient shared about: family support, medical course Driver Courier provided: - Supportive presence - Active listening - Validation of feelings/emotions Patient encouraged to request a parcel post delivery as needed. Chaplains are available in-house 24 hours a day and 7 days a week. For urgent matters in [facility], please page [phone]. If the request is not urgent, please enter a consult. Consults are responded to within 24 hours. Senior Staff Driver Courier Angie Singh Mdiv, [facility] [place] [phone] [email or web address] On-call TYLOR: manager call David: 22/06 Pager ,[facility], and [place] 1500 David Pager [phone] 01/18/24 1347 Clinical Encounter Type Visited With Patient Visit Type Introduction Pastoral Time Spent 15 min Referral Other (See Comment) (rounding) Spiritual Assessment Emotional Observation Coping well;Anxiety Hope Observation Specific hope focus Support Observation By Family Interventions Provided Active listening;Supportive presence Facilitated Verbalization of feelings;Identifying support system;Identifying Sources of spiritual well-being Explored Expectations;Treatment decisions Band Saw Filer Education Band Saw Filer Service Available Yes Educated Patient Outcomes Patient [...] interaction. Name: Fidelina Alarcon RPH Phone #: [phone] Date/Time: 01/18/2024 9:56 AM Discharge Planning Patient [...] Yes Name and Contact information: Gian Styles ([phone]) Would you like to add additional adult [...] Team?: Yes Patient Care Team: Zuly Bruno, ROB as PCP - General Evan White, DO as Infectious Disease (Infectious Disease) Dr Perrin transplant Dr [place]-Infectious disease Environment/Caregivers Is the patient from a facility or m[facility]p?: No Patient lives with: Alone Living Environment: [...] oxygen?: Yes Oxygen Provider and Contact : Likeable Local Liter-Flow?: 20/01- Order for oxygen use?: unknown [...] patient on Anticoagulation? : No [id number] [place] [address] - [address] [facility] [address] [facility] [address] Orthopedic Designer Does the patient or outside medical sales representative express financial concerns? : No [...] Plan 1. Identified self and role as Librarian Helper. 2. Confirmed and updated demographics and treatment team. 3. Librarian Helper will continue to follow with medical team for any other additional discharge needs. Kasandra DON RN [facility] [phone] *Please note I am float CM and work Thursday and Thursday every other week. Please call [phone] for assist in my absence. Internal Medicine Daily Progress Note Patient: George Styles, 1970, [id number] Physician: Yury Ozuna MD, PGY1, Pager #[phone], DR5 service Assessment/Plan: Updates: - continue diuresis with [...] home amlodipine 5mg CAD: non-obstructive CAD on [facility] 2019. - continue home aspirin 81mg daily, [...] ordered 2D echo. Kevin Sage MD, SERA Cooker Process Cheese of Clinical Medicine [facility] documented in this encounter [facility] 01-23-2024 Plan of care note Patient [...] Symptoms (Acute Pain): verbalization of pain descriptors [facility] 01-22-2024 Hospital Discharge instructions Arelis Mera [...] your doctor for further instructions. Please call [phone], Option 1 or [phone] to schedule your appointment with the Heart Failure Clinic. Arelis Mera MD - 01/22/2024 3:08 PM EST You can change your dressing 48 hours from the procedure The following attachments cannot be sent through Care Everywhere.Heart Failure: Avoiding Triggers (Samoan)Heart Failure: Limiting Sodium (Samoan)Pain and Pain Control ([facility]) (Samoan)documented in this encounter 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] POST OPERATIVE DIAGNOSIS Post-Op Diagnosis Codes: * High output congestive heart failure [I50.83] PROCEDURE PERFORMED Procedure(s) (LRB): LIGATION ANGIOACCESS AVF (Left) Resection of large aneurysmic vein PRIMARY CLOSURE Yes INTRAOPERATIVE FINDINGS No significant abnormalities SURGEON Surgeons and Role: * Jyoti Bryant MD, PhD - Primary ANESTHESIOLOGIST Anesthesiologist: Celena Tiwari MD; Kehinde Gutierrez MD INFANTRYMAN: David Jasso APRN-INFANTRYMAN Finance Clerk Assisting: Mini Khan MD SURGICAL STAFF Engineering Department Chair: Zoila Lawrence RN Relief Engineering Department Chair: Marimar Saravia RN Relief Scrub: Briseyda Self Scrub Person: Cinda Mai RN Resident Assisting: Leonel Harris DO Fellow: Miki Mcgowan MD, MBBS COMPLICATIONS None ESTIMATED BLOOD LOSS Minimal SPECIMENS No specimen sent * No specimens in log * Jyoti Bryant MD, PhD January 22, 2024 1:[address] [facility] Work Phone: 01-22-2024 Nurse Note Arrived [...] A&Ox4. Nerve block left arm, elevated. [facility] 01-22-2024 Surgery Postoperative evaluation and management [...] Axillary block. SURGEON(S): Jyoti Bryant MD, PHD GIFT BASKET PACKER: Mynor Fall MD ESTIMATED BLOOD LOSS: Minimal. [...] Jyoti Bryant MD, PHD ATTENDING SHANNON/Constanza JOB: [id number] DOC: [id number] [facility] 01-22-2024 Plan of care note Patient [...] Plan Of Care Reviewed With: patient [facility] 01-20-2024 Consult note Associated Order (s): IP CONSULT TO SURGERY - TRANSPLANT (RENAL) Images from the original note were not included. TRANSPLANT SURGERY CONSULT NOTE: Consult: 01/20/2024, 4:03 PM Education Intern: Starla Morris MD Reason for Consult: Requesting Dr Carson Bryant for AVF revision/closure given new onset high output heart failure George Styles is a 53 y.o. male CURRENT HOSPITALIZATION LOS: Admit Date: 01/16/2024 [facility] Hospital LOS: 4 days George [...] 04/12/2020 Laterality: N/A; Surgeon: LU Palma; Location: [facility] SAME DAY SURGERY MAIN OR KIDNEY TRANSPLANT W/O AGDAAGUX NEPHRECTOMY N/A 04/12/2020 Laterality: N/A; Surgeon: LU Palma; Location: [facility] SAME DAY SURGERY MAIN OR [...] Timothy Joseph MD 20 mg at 01/20/24 09 Gabapentin (NEURONTIN) capsule 400 mg 400 mg [...] (01/20 611) Labs-Chem 7([facility]): Bun/Creat/Cl/CO2/Glucose: 15/1.12/105/28/88 (01/20 611) Na/K+/Phos/Mg/Ca: [...] seen and staffed with Dr. Mcgowan fellow engine repairer production Thank you, Starla Morris MD Associated attestation - Jyoti Bryant MD, PhD - 01/22/2024 10:54 AM EST I. Jyoti Bryant MD, PhD, have independently seen and examined the patient, reviewed the labs, discussed the patient with the fellow/resident and agree with the note. [facility] Work Phone: 01-20-2024 Consult note Associated Order (s): IP CONSULT TO SURGERY - TRANSPLANT (RENAL) Images from the original note were not included. TRANSPLANT SURGERY CONSULT NOTE: Consult: 01/20/2024, 4:03 PM Education Intern: Starla Morris MD Reason for Consult: Requesting Dr Carson Bryant for AVF revision/closure given new onset high output heart failure George Styles is a 53 y.o. male CURRENT HOSPITALIZATION LOS: Admit Date: 01/16/2024 [facility] Hospital LOS: 4 days George [...] GUIDANCE 05/17/2022 Surgeon: Enzo Heart DO; Location: [facility] INTERVENTIONAL RADIOLOGY (VIR) LIVER TRANSPLANT, ORTHOTOPIC N/A 04/12/2020 Laterality: N/A; Surgeon: LU Palma; Location: [facility] SAME DAY SURGERY MAIN OR KIDNEY TRANSPLANT W/O AGDAAGUX NEPHRECTOMY N/A 04/12/2020 Laterality: N/A; Surgeon: LU [...] (01/20 06) Labs-Chem 7([facility]): Bun/Creat/Cl/CO2/Glucose: 15/1.12/105/28/88 (01/20 611) Na/K+/Phos/Mg/Ca: [...] seen and staffed with Dr. Mcgowan fellow engine repairer production Thank you, Starla Morris MD Associated attestation - Jyoti Bryant MD, PhD - 01/22/2024 10:54 AM EST I. Jyoti Bryant MD, PhD, have independently seen and examined the patient, reviewed the labs, discussed the patient with the fellow/resident and agree with the note. Associated Order(s): IP CONSULT TO HEPATOBILIARY [facility] Main Hepatology Consult WebExchange --> IM Consult Serv [facility] --> [facility] Main Hepatology consult service [...] GUIDANCE 05/17/2022 Surgeon: Enzo Heart DO; Location: [facility] INTERVENTIONAL RADIOLOGY (VIR) LIVER TRANSPLANT, ORTHOTOPIC N/A 04/12/2020 Laterality: N/A; Surgeon: LU Palma; Location: [facility] SAME DAY SURGERY MAIN OR KIDNEY TRANSPLANT W/O AGDAAGUX NEPHRECTOMY N/A 04/12/2020 Laterality: N/A; Surgeon: LU Palma; Location: [facility] SAME DAY SURGERY MAIN OR [...] and procedures were reviewed. ASSESSMENT AND PLAN: Geroge Styles is a 53 y.o. male, PMH [...] (order for outpatient) Please SecureChat or Call ([phone]) for any questions. Await attending attestation for final recommendations. Hank Noel MD Division of Gastroenterology, Hepatology, and Nutrition Clinical Fellow, PGY-5 Pager: [phone] For urgent/stat calls or consults 5pm to 7am, please page the on-call GI fellow on QGenda. [facility]--> Internal Medicine--> Gastroenterology, Hepatology, & Nutrition--> 1st Call Janae Hatfield For urgent/stat calls or consults 7am to 5pm during the weekend, please page the on-call GI fellow on QGenda. [facility]--> Internal Medicine--> Gastroenterology, Hepatology, & Nutrition--> All Hep & East Wknd Cons For follow up questions regarding this patient 7am to 5pm during the weekday, contact the Hepatology consults fellow or CARLOS A on QGenda. [facility]--> Internal Medicine--> Gastroenterology, Hepatology, & [...] MD, MSc documented in this encounter [facility] 01-19-2024 Nurse Note 01/19/24 0900 Vitals [...] 95-96% when talking/moving. Paulette Cordon RN [facility] 01-19-2024 Nurse Note Paged overnight coverage, Jasper Gastelum MD, via pager #[phone] Pt- George Styles. Sarah 1082. TM1. Was wondering if he can have his Melatonin order increased to 6mg. Per pt, he usually takes 8mg at home. -SAMI Duffy #[phone] [facility] 01-18-2024 Consult note Associated Order (s): IP CONSULT TO HEPATOBILIARY [facility] Main Hepatology Consult WebExchange --> IM Consult Serv [facility] --> [facility] Main Hepatology consult service [...] TRANSPLANT, ORTHOTOPIC N/A 04/12/2020 Laterality: N/A; Surgeon: JOSH PalmaBS; Location: [facility] SAME DAY SURGERY MAIN OR KIDNEY TRANSPLANT W/O AGDAAGUX NEPHRECTOMY N/A 04/12/2020 Laterality: N/A; Surgeon: LU Palma; Location: [facility] SAME DAY SURGERY MAIN OR [...] (order for outpatient) Please SecureChat or Call ([phone]) for any questions. Await attending attestation for final recommendations. Hank Noel MD Division of Gastroenterology, Hepatology, and Nutrition Clinical Fellow, PGY-5 Pager: [phone] For urgent/stat calls or consults 5pm to 7am, please page the on-call GI fellow on [employer]. [facility]--> Internal Medicine--> Gastroenterology, Hepatology, & Nutrition--> 1st Call Fel Alysia For urgent/stat calls or consults 7am to 5pm during the weekend, please page the on-call GI fellow on [employer]. [facility]--> Internal Medicine--> Gastroenterology, Hepatology, & Nutrition--> All Hep & East Wknd Cons Fel Day For follow up questions regarding this patient 7am to 5pm during the weekday, contact the Hepatology consults fellow or CARLOS A on [employer]. [facility]--> Internal Medicine--> Gastroenterology, Hepatology, & [...] (order for outpatient) Michael Estrada MD, MSc [facility] Work Phone: 01-16-2024 Plan of care note Internal Medicine Daily Progress Note Patient: George Styles, 1970, [id number] Physician: Arelis Mera MD, PGY3, Pager #[phone], TY8 service Assessment/Plan: George Styles is a 53 [...] home amlodipine 5mg CAD: non-obstructive CAD on [facility] 2018. - continue home aspirin 81mg daily, [...] on rounds. Signed, Arelis Mera MD [facility] 01-16-2024 Nurse Note Mr. Styles was admitted to [address] [place] [address]. On admission to [facility], from outside facility a dual RN initial assessment of skin condition was performed by Izzy Gutierrez RN and Leroy Singleton RN. Skin Assessment: Skin within defined limits:Yes Jose Score: 20 Wound Vision Forestry Support Specialist images obtained: No LDA Added: No Based [...] closest to nurses station when available. [facility] 01-16-2024 History and physical note Images from the original note were not included. Internal Medicine Admission History & Physical Patient: George Styles, 1970, [id number] Physician: Timothy Joseph MD, PGY1, Pager #[phone], TM 1 service Date of face to [...] 04/12/2020 Laterality: N/A; Surgeon: LU Palma; Location: [facility] SAME DAY SURGERY MAIN OR KIDNEY TRANSPLANT W/O AGDAAGUX NEPHRECTOMY N/A 04/12/2020 Laterality: N/A; Surgeon: LU Palma; Location: [facility] SAME DAY SURGERY MAIN OR [...] itraconazole Fax results to: Dr. White - [phone] Transplant Neph - [phone] Gabapentin 400 MG capsule Sig: Take 1 [...] erythema: Skin: No jaundice or rash Neuro: aging department supervisor 3-7, 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 Strength [...] home amlodipine 5mg CAD: non-obstructive CAD on [facility] 2018. - continue home aspirin 81mg daily [...] Pierson, Luisa Steven, Renee Rivera, Daisha Max Residential Roofer: José Miguel Garnica All Txt: 04/13/2020 (Kidney), [...] results found for: CYCLOSPORIN , CYCLOSPORIN2 , [id number] , CYCLORAND No results found for: SIROLIMUS [...] request in chart. Kevin Sage MD Pager [phone] [facility] 01-16-2024 History and physical note Images from the original note were not included. Internal Medicine Admission History & Physical Patient: George Styles, 1970, [id number] Physician: Timothy Joseph MD, PGY1, Pager #[phone], TM 1 service Date of face to [...] DAY SURGERY MAIN OR KIDNEY TRANSPLANT W/O AGDAAGUX NEPHRECTOMY N/A 04/12/2020 Laterality: N/A; Surgeon: LU [...] itraconazole Fax results to: Dr. White - [phone] Transplant Neph - [phone] Gabapentin 400 MG capsule Sig: Take 1 [...] erythema: Skin: No jaundice or rash Neuro: aging department supervisor 3-7, 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 Strength [...] home amlodipine 5mg CAD: non-obstructive CAD on [facility] 2018. - continue home aspirin 81mg daily [...] Pierson, Luisa Steven, Renee Rivera, Daisha Max Residential Roofer: José Miguel Garnica All Txt: 04/13/2020 (Kidney), [...] results found for: CYCLOSPORIN , CYCLOSPORIN2 , [id number] , CYCLORAND No results found for: SIROLIMUS , RAPAMUNE , RAPAMYCIN No results found for: EVEROLIMUS , EVRLMSTRGH , EVERTRGHMANE , EVRLMSRND Lab Results Component Value Date TACROLIMUS 5.7 01/16/2024 CORKYRFADY 5.2 01/08/2024 Initially, when received call from [...] request in chart. Kevin Sage MD Pager [phone] documented in this encounter [facility] 01-12-2024 History of Present illness Narrative [...] Prograf 0.2 MG Contact Info: Specialty (Yanci) [phone] Jakob [phone] [facility] [phone] David [phone] Bedside Delivery ([facility]) [phone] [facility] OP RX OUTREACH ADVANCED: Call Information: Date and Time of Contact: 01/25/2024 10:23 AM Method of Contact: By Phone Contact Type: Prescriptions Contactor: [facility] OP Contactee: Patient Contact Outcome: Left message (prograf myco) Contact Info: Specialty ([place]anc[place]) [phone] [facility] [phone] [facility] [phone] [facility] [phone] Bedside Delivery ([facility]) [phone] documented in this encounter [facility] 01-12-2024 History of Present illness Narrative [...] Prograf 0.2 MG Contact Info: Specialty (Yanci) [phone] [facility] [phone] [facility] [phone] [facility] [phone] Bedside Delivery ([facility]) [phone] [facility] OP RX OUTREACH ADVANCED: Call Information: Date and Time of Contact: 01/25/2024 10:23 AM Method of Contact: By Phone Contact Type: Prescriptions Contactor: [facility] OP Contactee: Patient Contact Outcome: Left message (prograf myco) Contact Info: Specialty ([place]anci) [phone] [facility] [phone] [facility] [phone] [facility] [phone] Bedside Delivery ([facility]) [phone] [facility] OP RX OUTREACH ADVANCED: Call Information: Date and Time of Contact: 01/27/2024 10:19 AM Method of Contact: By Phone Contact Type: Prescriptions Contactor: [facility] OP Contactee: Patient Contact Outcome: Left message (myco prograf) Contact Info: Specialty ([place]) [phone] [facility] [phone] [facility] [phone] David [phone] Bedside Delivery ([facility]) [phone] documented in this encounter [facility] 01-12-2024 History of Present illness Narrative [...] Prograf 0.2 MG Contact Info: Specialty ([place]anc[place]) [phone] [facility] [phone] [facility] [phone] David [phone] Bedside Delivery ([facility]) [phone] [facility] OP RX OUTREACH ADVANCED: Call Information: Date and Time of Contact: 01/25/2024 10:23 AM Method of Contact: By Phone Contact Type: Prescriptions Contactor: [facility] OP Contactee: Patient Contact Outcome: Left message (prograf myco) Contact Info: Specialty ([place]) [phone] [facility] [phone] [facility] [phone] David [phone] Bedside Delivery ([facility]) [phone] [facility] RX OUTREACH ADVANCED: Call Information: Date and Time of Contact: 01/27/2024 10:19 AM Method of Contact: By Phone Contact Type: Prescriptions Contactor: [facility] Contactee: Patient Contact Outcome: Left message (myco prograf) Contact Info: Specialty ([place]) [phone] [facility] [phone] [facility] [phone] [facility] [phone] Bedside Delivery ([facility]) [phone] [facility] RX OUTREACH ADVANCED: Call Information: Date and Time of Contact: 02/01/2024 3:22 PM Contact Type: Prescriptions Contactor: [facility] Contactee: Patient Contact Outcome: Left message Shipping/Pickup: Medication Name: Mycophenolate 360mg and Prograf 0.2mg Pack Contact Info: Specialty ([place]) [phone] [facility] [phone] [facility] [phone] [facility] [phone] Bedside Delivery ([facility]) [phone] documented in this encounter [facility] 01-06-2024 History of Present illness Narrative [...] pt to see neurologist in [facility] Immunocompromised ([facility]) Hypertension ([facility]) No change in meds Check echo Relevant Orders Echocardiogram 2D complete Bilateral lower extremity edema Relevant Orders Echocardiogram 2D complete Shortness of breath Check ECHO Relevant Orders Echocardiogram 2D complete Other Visit Diagnoses 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 10-06-2023 History of Present illness Narrative [facility] [...] Prograf 0.2 MG Contact Info: Specialty ([place]) [phone] [facility] [phone] [facility] [phone] David [phone] Bedside Delivery ([facility]) [phone] [facility] OUTREACH ADVANCED: Call Information: Date and Time of Contact: 10/23/2023 2:00 PM Method of Contact: By Phone Contact Type: Prescriptions Contactor: [facility] Contactee: Patient Contact Outcome: Left message and Call back later Shipping/Pickup: Medication Name: Mycophenolate 360mg and Prograf 0.2mg Contact Info: Specialty ([place]) [phone] [facility] [phone] [facility] [phone] David [phone] Bedside Delivery ([facility]) [phone] documented in this encounter [facility] 09-11-2023 Miscellaneous Notes Pt discharged home [...] the oxygen during the night. pt will tack picker his oxygen from [employer], 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 This RN made [...] Patient seen ambulating in the velazquez with ENVIRONMENTAL DEPARTMENT MANAGER. Patient was mildly short of breath on exertion. At rest patient is currently 96% on RA. Patient expressed only really needing supplemental oxygen when sleeping. Patient stated he is starting to have productions with cough. Patient encouraged to perform incentive spirometer 10 times qhr. Patient demonstrated effective use and verbalized understanding. iAxa Alejandra RN Rnn discussed plan of care [...] & HR 114. Messaged Mainor Loomis, via [employer] secure chat, Temp 100.8. His tylenol order [...] short period of time. 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 Episode [...] remaining BAL studies. Will continue to follow. Corw Diaz MD Pulmonary and Critical Care Medicine Message Mainor Loomis, via [employer] secure chat, Good evening, just an FYI, [...] short period of time. 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 This [...] [address] Loera here also (equal employment opportunity officer) Dr. Diaz aware of pt's increased [...] Medicine-Pediatrics, PGY-2 Mr. Styles was admitted to [address] [place] [address]. On admission to [facility], from home a [...] station when available. documented in this encounter [facility] 09-11-2023 History of Present illness Narrative Provided follow-up emotional and spiritual support. Patient shared about rosemary of discharge and looking forward to seeing family Driver Courier provided: - Supportive presence - Active listening - Validation of feelings/emotions Patient encouraged to request a parcel post delivery as needed. Chaplains are available in-house 24 hours a day and 7 days a week. For urgent matters in [facility], please page [phone]. If the request is not urgent, please enter a consult. Consults are responded to within 24 hours. Senior Staff Driver Courier Angie Singh Mdiv, [facility] [place] [phone] [email or web address] 22/06 On-call [place]: [phone] 22/06 Pager ,BS, and Brock 1500 David Pager [phone] 09/11/23 1430 Clinical Encounter Type Visited With Patient Visit Type Follow-up Pastoral Time Spent 15 min Referral Other (See Comment) (rounding) Spiritual Assessment Spiritual Observation Spirituality helpful Emotional Observation Coping well Hope Observation Specific hope focus Support Observation By Family Interventions Provided Active listening;Supportive presence Facilitated Verbalization of feelings Explored Expectations Band Saw Filer Education Band Saw Filer Service Available Yes Educated Patient Plan of Care Continue Visiting PRN Images from the original note were not included. [facility] Note: Non-Verbal Med Rec [facility] received the following discharge prescription(s): Total cost is $0. I have reviewed the Discharge Rx Reconciliation Report. The discharge prescription(s) will be delivered to the patient on 09/11/2023. Dimitrios Gurrola RPh,PharmD Specialty ([place]) [phone] [facility] [phone] [facility] Bedside Delivery [phone] [facility] [phone] [facility] Bedside Delivery [phone] David [phone] David Bedside Delivery [phone] [place] [phone] [place] [phone] Internal Medicine Daily Progress Note Patient: George Styles, 1970, [id number] Physician: Evan Kelly MD, PGY-1, TM1 service Subjective/Interval History: Patient continues to require oxygen overnight for desaturations. With insurance limitations, only accepting agency to provide home oxygen backed out. After calling them to discuss, Lynn stated she would be willing to have patient drive to their facility to tack picker supplies, however they close at 5pm. 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 His [place] kidney disease was noted to be presumed [...] losartan 50mg BID CAD: non-obstructive CAD on [facility] 2019. - continue home aspirin 81mg daily, [...] 5.05 (H) 11/19/2018 Kevin Sage MD, SERA [employer] Cheese of Clinical Medicine [facility] Images from the original note were not included. Final Discharge Planning and Transportation Final Discharge Planning Discharge Disposition: Home Services at Discharge: Outpatient clinical services (ie: lab draws, transfusions, injectables) (Home Oxygen by [employer]) Selected Continued Care - Admitted Since 08/28/2023 Durable Medical Equipment Coordination complete. Service Provider Selected Services Address Phone Fax Patient Preferred [employer] Durable Medical Equipment [address] [address] [phone] Internal Comment last updated by Lora Lawrence RN 09/10/2023 1334 Correct contact information: [facility] [address] [place] [address] [place] [address] embedded systems software engineer- you do not need to call at discharge, I already notified the company. Addendum [phone] [facility] notified this CM they are out of patient's insurance area and will not be able to service this patient at time of discharge. Provider notified. Addendum [phone] Dr Kelly called [facility] spoke to Lynn and she said they are willing to accept patient if the patient would drive to the [place] office and tack picker the supplies. Patient is willing to [...] Lora Colón RN, MSN, CCM, CMCN Clinical Librarian Helper- [facility] Transplant #[phone] Department of Pharmacy Transplant Note Patient: George [...] Last dose change: on discharge to the 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 Medication additions/changes: Lipitor on hold with itraconazole Items for clinic follow up: - Lipid follow up with atorvastatin on hold - Itraconazole level and, if needed, a dose adjustment Name: Matt Kramer RPh,PharmJenna Phone: [phone] Date/Time: 09/10/2023 11:33 AM This CM sent referral via [employer] for O2 concentrator to 4 agencies Start date today Timer set for [address] [employer] [facility] [employer] Addendum 1332 One accepting company reserved in [employer] [address] [place] [place] [address] [place] [address] Lora Colón RN, MSN, CCM, CMCN Clinical Librarian Helper- [facility] Transplant #[phone] NUTRITION FOLLOW-UP Nutrition Plan of Care: 1. Continue current diet order. 2. No oral supplements warranted at this time. 3. Monitor for significant weight changes. Monitor GI, skin integrity. 4. Monitor and encourage po intakes with goal of average po being 75-100%. 5. medical lab technician to follow. ___ Met with patient [...] time. Will continue to monitor. RHIANNON [place]R Pager:[phone] Transplant Infectious Disease (Team 3) Progress Note [...] sign off. Please Epic message or page [phone] with questions. Evan White DO Transplant Infectious Diseases Internal Medicine Daily Progress Note Patient: George Styles, 1970, [id number] Physician: Evan Kelly MD, PGY-1, TM1 service [...] s/p combined Liver-kidney transplant on 04/13/20. His [place] kidney disease was noted to be presumed [...] losartan 50mg BID CAD: non-obstructive CAD on [facility] 2019. - continue home aspirin 81mg daily, [...] to follow. Please Epic message or page [phone] with questions. Evan White DO Transplant Infectious Diseases Internal Medicine Daily Progress Note Patient: George Styles, 1970, [id number] Physician: Laurel Serrano MD, PhD, PGY-3, TM1 [...] s/p combined Liver-kidney transplant on 04/13/20. His [place] kidney disease was noted to be presumed [...] losartan 50mg BID CAD: non-obstructive CAD on [facility] 2019. - continue home aspirin 81mg daily, holding atorvastatin 20mg daily Gout: continue home allopurinol 200mg daily BPH: continue home flomax 0.4mg daily DVT PPX: SQH Code Status: Full Code Disposition: Pending clinical course. Anticipate eventual discharge home. Discussed with team and attending, Kevin Sage MD, on rounds. Signed, Laurel Serrano MD, PhD Internal Medicine Daily Progress Note Patient: George Styles, 1970, [id number] Physician: Evan Kelly MD, PGY-1, TM1 service [...] s/p combined Liver-kidney transplant on 04/13/20. His [place] kidney disease was noted to be presumed [...] losartan 50mg BID CAD: non-obstructive CAD on [facility] 2019. - continue home aspirin 81mg daily, [...] 5.05 (H) 11/19/2018 Kevin Sage MD, SERA [employer] Cheese of Clinical Medicine [facility] Transplant Infectious [...] to follow. Please Epic message or page [phone] with questions. Ann Marie Haskins MD PGY-4, [...] he continues to improve. Please message via [employer] secure chat or page with any questions or concerns. Evan White DO Cook[employer] Division of Infectious Disease Transplant Infectious Disease [...] to follow. Please Epic message or page [phone] with questions. Evan White DO Transplant Infectious Diseases Images from the original note were not included. Pulmonary/Critical Care Medicine Daily Progress Note Reason for Consultation: bronch for infectious workup Requesting Physician: Dr. Sage CURRENT HOSPITALIZATION: Admit Date: 08/28/2023 [facility] Hospital LOS: 9 days Impression [...] and interpreted reviewed the radiographic data in [facility]. Internal Medicine Daily Progress Note Patient: George Styles, 1970, [id number] Physician: Evan Kelly MD, PGY-1, TM1 service [...] s/p combined Liver-kidney transplant on 04/13/20. His [place] kidney disease was noted to be presumed [...] losartan 50mg BID CAD: non-obstructive CAD on [facility] 2018. - continue home aspirin 81mg daily, [...] 5.05 (H) 11/19/2018 Kevin Sage MD, SERA Cooker Process Cheese of Clinical Medicine [facility] Images from the original note were not included. Pulmonary/Critical Care Medicine Daily Progress Note Reason for Consultation: bronch for infectious workup Requesting Physician: Dr. Sage CURRENT HOSPITALIZATION: Admit Date: 08/28/2023 [facility] Hospital LOS: 8 days Impression [...] and interpreted reviewed the radiographic data in IS/[facility]. Acute Occupational Therapy Evaluation Prior to [...] Assessment: Transfer Assessment: Sit to Stand Transfer Long Bottom Level: Sit->Stand: independent Skilled Intervention/Details: Sit->Stand: x1 from EOB, x1 from toilet Stand to Sit Transfer Long Bottom Level: Stand->Sit: independent Skilled Intervention/Details: Stand->Sit: x1 to toilet, x1 to EOB Functional Mobility: Functional Mobility Long Bottom Level: Functional Mobility/Gait: independent Ambulation Distance (Feet): 20 Skilled Intervention/Details - Functional Mobility/Gait: pt performed functional mobility to/from RR w/ no overt LOB Outcome Score(s): CURRENT [facility] Daily Activity Inpatient Short Form Putting on/Taking Off Lower Body Clothin - A Little Assistance Bathin - A Little Assistance Toiletin - A Little Assistance Putting on/Taking Off Upper Body Clothin - No Assistance Groomin - No Assistance Eatin - No Assistance CURRENT [facility] Activity Raw Score: 21 CURRENT [facility] Activity Functional Limitation/Modifier: 32.79% Currently Impaired in [...] Intact Mobility Assessment: Supine to Sit Mobility Long Bottom Level: Supine->Sit: modified independence Bed Features/Set-up: Supine->Sit: Head of bed elevated Sit to Supine Mobility Long Bottom Level: Sit->Supine: not tested Balance: Sitting Balance [...] environment. Transfer Assessment: Sit to Stand Transfer Long Bottom Level: Sit->Stand: independent Skilled Intervention/Details: Sit->Stand: From EOB x 2 without difficulty. Stand to Sit Transfer Long Bottom Level: Stand->Sit: independent Assistive Device: Stand->Sit: armed chair Skilled Rationale: Verbal cues, Positioning Gait/Functional Mobility: Gait Assessment Long Bottom Level: Gait: stand-by assist Assistive Device: Gait: rollator Ambulation Distance (Feet): 400 Gait Deviations Identified: decreased grace, decreased gait speed Gait Skilled Rationale: verbal, upright posture, increase step length, increase foot clearance Skilled Intervention/Details - Gait: Reasonable foot clearnce without loss of balance but endorsing dyspnea as 6-7/10. Stairs: Stairs Assessment Long Bottom Level: Stair Negotiation: not tested Outcome Score(s): CURRENT [facility] Basic Mobility Inpatient Short Form Turning over [...] Little Assistance CURRENT [facility] Mobility Raw Score: 21 CURRENT [facility] Mobility Functional Limitation/Modifier: 28.97% Currently Impaired in [...] Daily Progress Note Patient: George Styles, 1970, [id number] Physician: Evan Kelly MD, PGY-1, TM1 service [...] s/p combined Liver-kidney transplant on 04/13/20. His [place] kidney disease was noted to be presumed [...] losartan 50mg BID CAD: non-obstructive CAD on [facility] 2019. - continue home aspirin 81mg daily, [...] 5.05 (H) 11/19/2018 Kevin Sage MD, MADISONN Cooker Process Cheese of Clinical Medicine [facility] Transplant Infectious [...] to follow. Please Epic message or page [phone] with questions. Evan White DO Transplant Infectious Diseases Images from the original note were not included. Internal Medicine Daily Progress Note Patient: George Styles, 1970, [id number] Physician: Evan Kelly MD, PGY-1, TM1 service [...] s/p combined Liver-kidney transplant on 04/13/20. His [place] kidney disease was noted to be presumed [...] losartan 50mg BID CAD: non-obstructive CAD on [facility] 2018. - continue home aspirin 81mg daily, [...] P 450 system Kevin Sage MD, SERA Cooker Process Cheese of Clinical Medicine [facility] Comprehensive [...] PhD Internal Medicine and Pediatrics PGY-3 [facility] Brief plan of care update: Called to [...] PhD Internal Medicine and Pediatrics PGY-3 [facility] Transplant Infectious Disease (Team 3) Progress Note [...] to follow. Please Epic message or page [phone] with questions. Evan White DO Transplant Infectious Diseases Internal Medicine Daily Progress Note Patient: George Styles, 1970, [id number] Physician: Evan Kelly MD, PGY-1, TM1 service [...] s/p combined Liver-kidney transplant on 04/13/20. His [place] kidney disease was noted to be presumed [...] 2/2 renal function CAD: non-obstructive CAD on [facility] 2018. - continue home aspirin 81mg daily, [...] 5.05 (H) 11/19/2018 Kevin Sage MD, FASN Cooker Process Cheese of Clinical Medicine [facility] Internal Medicine Daily Progress Note Patient: George Styles, 1970, [id number] Physician: Evan Kelly MD, PGY-1, TM1 service [...] s/p combined Liver-kidney transplant on 04/13/20. His [place] kidney disease was noted to be presumed [...] 2/2 renal function CAD: non-obstructive CAD on [facility] 2018. - continue home aspirin 81mg daily, [...] 5.05 (H) 11/19/2018 Kevin Sage MD, SERA [employer] Cheese of Clinical Medicine [facility] Progression of [...] Lora Colón RN, MSN, CCM, CMCN Clinical Librarian Helper- [facility] Transplant #[phone] Made introductory visit with patient. Provided emotional and spiritual support. Patient shared about: - Source of Rosemary: Camping/Fishing/Family - Spirituality/Orthodoxy Affiliation: raised Gnosticism - Family Support/history - Experience with illness/hospital course - Hopes for healing/future Driver Courier provided: - Supportive presence - Active listening - Validation of feelings/emotions - Pledged prayer Patient encouraged to request a parcel post delivery as needed. Chaplains are available in-house 24 hours a day and 7 days a week. For urgent matters in [facility], please page [phone]. If the request is not urgent, please enter a consult. Consults are responded to within 24 hours. Senior Staff Driver Courierdakota Singh Mdiv, [facility] [place] [phone] [email or web address] 22/06 On-call [place]: [phone] 22/06 Pager ,[facility], and Brock Maciel Pager [phone] 09/02/23 1113 Clinical Encounter Type Visited With Patient Visit Type Introduction Pastoral Time Spent 15 min Referral Other (See Comment) (rounding) Spiritual Assessment Spiritual Observation Spirituality helpful Emotional Observation Coping well Hope Observation Specific hope focus Support Observation By Family Interventions Provided Active listening;Supportive presence Facilitated Verbalization of feelings Explored Expectations Band Saw Filer Education Band Saw Filer Service Available Yes Educated Patient Outcomes Patient Outcomes Reduced distress Plan of Care Continue Visiting PRN NUTRITION RISK SCREENING NOTE Nutrition Plan of Care: 1. Continue current diet order. 2. No oral supplements warranted at this time. 3. Monitor for significant weight changes. Monitor GI and skin integrity. 4. Monitor and encourage po intakes with goal of average po being 100%. 5. medical lab technician to follow. George Styles is a 53 y.o. 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 His [place] kidney disease was noted to be presumed hepatorenal syndrome. His post-transplant course was noteworthy for nephrostomy tube (05/17/2022-09/10/2022) due to concern for ureteral stone. He presents as a direct admission for fever, cough, for infectious workup. Pt unavailable and information obtained via chart review Chimney Sweeper Screening Pt's appetite is good. Pt with [...] time. Will continue to monitor. RHIANNON BirminghamR Pager:[phone] Internal Medicine Daily Progress Note Patient: George Styles, 1970, [id number] Physician: Evan Kelly MD, PGY-1, TM1 service [...] s/p combined Liver-kidney transplant on 04/13/20. His [place] kidney disease was noted to be presumed [...] / renal function CAD: non-obstructive CAD on [facility] 2018. - continue home aspirin 81mg daily, [...] as outlined above. Kevin Sage MD Pager [phone] Summary: Pharmacy Med Rec Department of Pharmacy [...] further questions. Name: Heidy Chatman Phone #: [phone] Date/Time: 09/01/2023 2:01 PM Time Spent: 15 minutes Associated attestation - Matt Kramer RPh,PharmJenna - 09/01/2023 2:28 PM EDT Department of Pharmacy Admission Medication Reconciliation Note Patient: George Styles Room/Bed: 1062/A I have reviewed the home medication list with the Tire Molder. All changes to the home medication list have been updated in IHIS. Updated ENGINEERING TEST MECHANIC Med List: Prior to Admission Medications Prescriptions [...] questions. Name: Matt Kramer lydia,PharmD Phone #: [phone] Date/Time: 09/01/2023 2:28 PM Transplant Infectious Disease [...] to follow. Please Epic message or page [phone] with questions. Evan White DO Transplant Infectious Diseases Internal Medicine Daily Progress Note Patient: George Styles, 1970, [id number] Physician: Evna Kelly MD, PGY-1, TM1 service Subjective/Interval History: [...] s/p combined Liver-kidney transplant on 04/13/20. His [place] kidney disease was noted to be presumed [...] 2/2 renal function CAD: non-obstructive CAD on [facility] 2018. - continue home aspirin 81mg daily, [...] CREATSERUM 5.05 (H) 11/19/2018 Kevin [facility]age MD, [facility] Cooker Process Cheese of Clinical Medicine [facility] Discharge Planning [...] Yes Name and Contact information: Gian Styles ([phone]) Reviewed and Updated in Demographics? : Yes Outpatient Providers Does patient have a primary care physician? : Yes When was the patient's last PCP visit?: > 30 days Does the patient follow any specialists?: No Reviewed and updated Care Team?: Yes Patient Care Team: Zuly Bruno CNP as PCP - General Environment/Caregivers Is the patient from a facility or mcfp?: No Patient lives with: Alone Living Environment: [...] patient on Anticoagulation? : No [id number] [place] [address] - [address] [facility] [address] [facility] [address] Orthopedic Designer Does the patient or outside medical sales representative express financial concerns? : No [...] Plan 1. Identified self and role as Librarian Helper. 2. Confirmed and updated demographics and treatment team. 3. Librarian Helper will continue to follow with medical team/pt for any other additional discharge needs. Kasandra DON RN [facility] [facility] [phone] *Please note I am float CM and work Thursday and Thursday every other week. Please call [phone] for assist in my absence. Internal Medicine Daily Progress Note Patient: George Styles, 1970, [id number] Physician: Evan Kelly MD, PGY-1, TM1 service [...] s/p combined Liver-kidney transplant on 04/13/20. His [place] kidney disease was noted to be presumed [...] 2/2 renal function CAD: non-obstructive CAD on [facility] 2018. - continue home aspirin 81mg daily, [...] 5.05 (H) 11/19/2018 Kevin Sage MD, SERA Cooker Process Cheese of Clinical Medicine [facility] Internal Medicine Daily Progress Note Patient: George Styles, 1970, [id number] Physician: Laurel Serrano MD, PhD, PGY-3, TM1 [...] s/p combined Liver-kidney transplant on 04/13/20. His [place] kidney disease was noted to be presumed [...] losartan 50mg BID CAD: non-obstructive CAD on [facility] 2018. - continue home aspirin 81mg daily, atorvastatin 20mg daily Gout: continue home allopurinol 200mg daily BPH: continue home flomax 0.4mg daily DVT PPX: SQH Code Status: Full Code Disposition: Pending clinical course. Anticipate eventual discharge home. Discussed with team and attending, Kevin Sage MD, on rounds. Signed, Laurel Serrano MD, PhD documented in this encounter [facility] 09-10-2023 Hospital Discharge instructions Laurel Serrano [...] a sleep doctor. You will need to tack picker the oxygen concentrator when you leave [...] healthy foods. documented in this encounter [facility] 09-01-2023 Consult note Associated Order (s): IP CONSULT TO PULMONOLOGY Pulmonary Medicine Inpatient Consultation Reason for Consultation: bronch for infectious workup Requesting Physician: Dr. Sage Pulmonary Attending Physician: Dr. Diaz CURRENT HOSPITALIZATION: Admit Date: 08/28/2023 [facility] Hospital LOS: 4 days Impression/Recommendations: [...] short period of time. 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 Other histories as documented in [...] ill contacts. He traveled to [place] to [facility] in May. REVIEW OF SYSTEMS A [...] DAY SURGERY MAIN OR KIDNEY TRANSPLANT W/O AGDAAGUX NEPHRECTOMY N/A 04/12/2020 Laterality: N/A; Surgeon: LU Palma; Location: [facility] SAME DAY SURGERY MAIN OR [...] Alamo MD I can be reached via Rezolve message (Toopher) or Pager #[phone] documented in this encounter [facility] 08-28-2023 History and physical note Images from the original note were not included. Internal Medicine Admission History & Physical Patient: George Styles, 1970, [id number] Physician: Aric Turner MD, PGY1, Pager #[phone], TM service Date of face to face [...] So he went to see the transplant automotive parts person. He was found elevated Cr and asked [...] Appetite is ok now. Urine is about 5251-9253 ml every day. Stool every day, no [...] GUIDANCE 05/17/2022 Surgeon: Enzo Heart DO; Location: [facility] INTERVENTIONAL RADIOLOGY (VIR) LIVER TRANSPLANT, ORTHOTOPIC N/A 04/12/2020 Laterality: N/A; Surgeon: LU Palma; Location: [facility] SAME DAY SURGERY MAIN OR KIDNEY TRANSPLANT W/O AGDAAGUX NEPHRECTOMY N/A 04/12/2020 Laterality: N/A; Surgeon: LU Palma; Location: [facility] SAME DAY SURGERY MAIN OR [...] s/p combined Liver-kidney transplant on 04/13/20. His [place] kidney disease was noted to be presumed [...] Urinary histoplasmosis - PJP, candid PCR - Education Intern transplant ID Acute Kidney Injury with [...] losartan 50mg BID CAD: non-obstructive CAD on [facility] 2019. - continue aspirin 81mg daily, atorvastatin [...] Pierson, Luisa Steven, Renee Rivera, Daisha Max Residential Roofer: José Miguel Garnica All Txt: 04/13/2020 (Kidney), [...] results found for: CYCLOSPORIN , CYCLOSPORIN2 , [id number] , CYCLORAND No results found for: SIROLIMUS [...] Rest as above. Kevin Sage MD Pager [phone] documented in this encounter [facility] 08-28-2023 History of Present illness Narrative Images from the original note were not included. 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 Residential Roofer: Anayeli Burt Date of Liver Transplant: 04/13/2020 (Kidney), 04/13/2020 (Liver) 3 years 4 months post Liver/Kidney Transplant Primary Disease: Hypertensive Nephrosclerosis Transplant Director Supply: Erma Roe/ Daisha Max Primary Care physician: [...] and faMOTIdine === None Specified Preferred Lab: [facility] Change in lab frequency / new [...] every 12 hours. ADDITIONAL INFORMATION: None Specified, [id number] [place] [address] - [address] [facility] [address] [facility] [address] [facility] [address] [facility] [place] [address] [facility][id number] [place] [address] [address] [facility] [address] [facility] [address] [facility] [address], [address] [place] [address] ROS and SCREEN: Chest Pain: negative Cough: [...] PHYSICIAN: I saw George Styles at the [facility] on 08/28/2023. Patient is a 53 y.o. 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 His [place] kidney disease was noted to be presumed [...] GUIDANCE 05/17/2022 Surgeon: Enzo Heart DO; Location: [facility] INTERVENTIONAL RADIOLOGY (VIR) LIVER TRANSPLANT, ORTHOTOPIC N/A 04/12/2020 Laterality: N/A; Surgeon: LU Palma; Location: [facility] SAME DAY SURGERY MAIN OR KIDNEY TRANSPLANT W/O AGDAAGUX NEPHRECTOMY N/A 04/12/2020 Laterality: N/A; Surgeon: LU Palma; Location: [facility] SAME DAY SURGERY MAIN OR [...] you have any questions. Steve Latham MD procurement forester Division of Nephrology [facility] documented in this encounter [facility] 08-28-2023 Instructions Mainor Busby RN - 08/28/2023 2:15 PM EDT - Admission for fevers, cough, and night sweats documented in this encounter [facility] 08-19-2023 History of Present illness Narrative [facility] RX OUTREACH ADVANCED: Call Information: Date and Time of Contact: 08/19/2023 2:52 PM Method of Contact: By Phone Contact Type: Prescriptions Contactor: [facility] Contactee: Patient Shipping/Pickup: Medicare B Refill?: No Medication Name: Tacro 0.5mg Delivery Method: Air Delivery Location: Home Signature Required: No Mailing/Pickup Date: 08/25/2023 Shipping Address: [address] [place] [address] [address] Contact Info: Specialty ([place]) [phone] Jakob [phone] [facility] [phone] David [phone] Bedside Delivery ([facility]) [phone] documented in this encounter [facility] 06-12-2023 History of Present illness Narrative Images from the original note were not included. George Styles is a 53 y.o. 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 No longer follows with a local automotive parts person. History of Present Illness: Since George was [...] and lab results. Rebeca Gutierrez MSN, RN, PROPULSION MOTOR AND GENERATOR REPAIRER-BC, CCTN Certified Nurse Practitioner Comprehensive Trans[facility] [address] [place] [address] documented in this encounter [facility] 06-12-2023 Instructions JEANNA Hess - 06/12/2023 3:00 PM EDT No change in immunosuppression. documented in this encounter [facility] 06-10-2023 History of Present illness Narrative [facility] RX OUTREACH ADVANCED: Call Information: Method of Contact: By Phone Contact Type: Prescriptions Contactor: [facility] Contactee: Patient Contact Outcome: Left message Shipping/Pickup: Medication Name: Mycophenolate sod 180 mg Contact Info: Specialty ([place]) [phone] Jakob [phone] [facility] [phone] David [phone] Bedside Delivery ([facility]) [phone] [facility] RX OUTREACH ADVANCED: Call Information: Date and Time of Contact: 06/12/2023 9:43 AM Method of Contact: By Phone Contact Type: Prescriptions Contactor: [facility] Contactee: Patient Contact Outcome: Left message and Follow-up Shipping/Pickup: Medicare B Refill?: No Medication Name: Myco 180 Contact Info: Specialty ([place]) [phone] Jakob [phone] [facility] [phone] David [phone] Bedside Delivery ([facility]) [phone] [facility] RX OUTREACH ADVANCED: Call Information: Date and Time of Contact: 06/12/2023 10:08 AM Method of Contact: By Phone Contact Type: Prescriptions Contactor: [facility] Contactee: Patient Shipping/Pickup: Medicare B Refill?: No Medication Name: Mycophenolate 180mg DR Delivery Method: Air Delivery Location: Home Signature Required: No Mailing/Pickup Date: 06/17/2023 Shipping Address: [address] [address] Contact Info: Specialty ([place]) [phone] Jakob [phone] [facility] [phone] David [phone] Bedside Delivery ([facility]) [phone] documented in this encounter [facility] 03-12-2023 History of Present illness Narrative [facility] RX OUTREACH ADVANCED: Call Information: Date and Time of Contact: 03/12/2023 10:34 AM Method of Contact: By Phone Contact Type: Prescriptions Contactor: [facility] Contactee: Patient Shipping/Pickup: Medicare B Refill?: No Medication Name: Mycophenoloate sod 360 mg prednisone 5mg Delivery Method: Air Delivery Location: Home Signature Required: No Mailing/Pickup Date: 03/16/2023 Shipping Address: [address] [place] [address] Contact Info: Specialty ([place]) [phone] Jakob [phone] [facility] [phone] David [phone] Bedside Delivery ([facility]) [phone] [facility] OUTREACH ADVANCED: Call Information: [...] Required: No Mailing/Pickup Date: 03/19/2023 Shipping Address: [address] [place] [address] [address] Contact Info: Specialty ([place]) [phone] [facility] [phone] [facility] [phone] David [phone] Bedside Delivery ([facility]) [phone] documented in this encounter [facility] 03-10-2023 History of Present illness Narrative [facility] RX OUTREACH ADVANCED: Call Information: Date and Time of Contact: 03/10/2023 12:00 PM Method of Contact: By Phone Contact Type: Prescriptions Contactor: [facility] Contactee: Patient Contact Outcome: Left message and Call back later Shipping/Pickup: Medication Name: Mycophenolate ; Tacrolimus Contact Info: Specialty ([place]) [phone] [facility] [phone] [facility] [phone] David [phone] Bedside Delivery ([facility]) [phone] documented in this encounter [facility] 03-10-2023 History of Present illness Narrative [facility] RX OUTREACH ADVANCED: Call Information: Date and Time of Contact: 03/10/2023 12:00 PM Method of Contact: By Phone Contact Type: Prescriptions Contactor: [facility] Contactee: Patient Contact Outcome: Left message and Call back later Shipping/Pickup: Medication Name: Mycophenolate ; Tacrolimus Contact Info: Specialty ([place]) [phone] [facility] [phone] [facility] [phone] David [phone] Bedside Delivery ([facility]) [phone] [facility] RX OUTREACH ADVANCED: Call Information: Date and Time of Contact: 03/12/2023 10:32 AM Method of Contact: By Phone Contact Type: Prescriptions Contactor: [facility] Contactee: Patient Contact Outcome: Left message Shipping/Pickup: Medication Name: Mycophenolate sodium (MYFORTIC) 180 MG Tab tacrolimus 0.5 mg Contact Info: Specialty ([place]) [phone] [facility] [phone] [facility] [phone] [facility] [phone] Bedside Delivery ([facility]) [phone] documented in this encounter [facility] 01-16-2023 History of Present illness Narrative -Referring Provider for today's consult: Daisha Max DO -Primary Care Provider: Zuly Bruno History of Present Illness George Styles is a 52 y.o. male who presents to the [facility] Transplant Hepatology Clinic today for [...] GUIDANCE 05/17/2022 Surgeon: Enzo Heart DO; Location: [facility] INTERVENTIONAL RADIOLOGY (VIR) LIVER TRANSPLANT, ORTHOTOPIC N/A 04/12/2020 Laterality: N/A; Surgeon: LU Palma; Location: [facility] SAME DAY SURGERY MAIN OR KIDNEY TRANSPLANT W/O AGDAAGUX NEPHRECTOMY N/A 04/12/2020 Laterality: N/A; Surgeon: LU Palma; Location: [facility] SAME DAY SURGERY MAIN OR [...] 0.3 12/29/2022 Explant Pathology Pathologic Diagnosis A. [place] liver, orthotopic liver transplant resection (1458 gram): [...] A/P with IV contrast (06/27/2022): 1. Both [place] kidneys are atrophic with improvement in right-sided [...] frequent nighttime urination, etc). Daisha Max DO Cooker Process Cheese Gastroenterology, Hepatology and Nutrition [facility] Pager: [phone] Images from the original note were not included. 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 Residential Roofer: Anayeli Burt Date of Liver Transplant: 04/13/2020 (Kidney), 04/13/2020 (Liver) 2 years, 8 months post Liver/Kidney Transplant Primary Disease: Hypertensive Nephrosclerosis Transplant Director Supply: Steve Latham Primary Care physician: Zuly Bruno [...] levels: No results found for: CYCLOSPORIN, CYCLOSPORIN2, [id number], CYCLORAND No components found for: CYCLOSPORINE, 2HR [...] hours. ADDITIONAL INFORMATION: None Specified [id number] [place] [address] - [address] [facility] [address] [facility] [address] [facility] [address] [place] [address] [id number] [place] [address] [address] [facility] [address] [facility] [address] [facility] [address], [address] [place] [address] ROS and SCREEN: Chest Pain: negative Cough: [...] ADDRESS WITH PHYSICIAN: documented in this encounter [facility] 01-16-2023 Instructions José Miguel Garnica RN - 01/16/2023 9:40 AM EST - Labs Every 2 months - Discuss night time urination with your PCP - Schedule Colonoscopy through PCP - Follow up in 1 year documented in this encounter [facility] 09-10-2022 History of Present illness Narrative [...] and no hydronephrosis. Some reflux up the [place] right ureter but good drainage of both transplant and [place] ureter to the bladder. Nephrostomy tube was [...] transplant, orthotopic (N/A, 04/12/2020); kidney transplant w/o [place] nephrectomy (N/A, 04/12/2020); and placement nephrostomy catheter [...] Negative for , diarrhea, constipation Genitourinary: See CADDO Neurological: Negative for headaches. Lymph/Heme: Negative for [...] x 4, Normal strength. No edema. Skin: [place], warm, and dry. There are no rashes [...] and no hydronephrosis. Some reflux up the [place] right ureter but good drainage of both transplant and [place] ureter to the bladder. Nephrostomy tube was [...] documented in this encounter [facility] 07-07-2022 History of Present illness Narrative [...] off the table and escorted to receptionist clerk where they made a follow up. 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 Nephrostomy tube placed [...] to have transplant ureter with anastomosis to [place] right ureter. Nephrostogram without filling defects and no hydronephrosis. Some reflux up the [place] right ureter but good drainage of both transplant and [place] ureter to the bladder. Nephrostomy tube was [...] documented in this encounter [facility] 06-27-2022 History of Present illness Narrative [...] transplant, orthotopic (N/A, 04/12/2020); kidney transplant w/o [place] nephrectomy (N/A, 04/12/2020); and placement nephrostomy catheter [...] Negative for , diarrhea, constipation Genitourinary: See CADDO Neurological: Negative for headaches. Lymph/Heme: Negative for [...] x 4, Normal strength. No edema. Skin: [place], warm, and dry. 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 Nephrostomy tube placed [...] bag if needed. documented in this encounter [facility] 06-27-2022 History and physical note Patient was evaluated in clinic as a nurse visit. Please refer to Rena Brewster's note. [facility] Work Phone: 06-27-2022 History and physical note Patient was evaluated in clinic as a nurse visit. Please refer to Rena Brewster's note. documented in this encounter [facility] 06-27-2022 History of Present illness Narrative TEACHING REGARDING TX NEPH COMPLETED-NEPH TUBE SITE DRY AND INTACT-CLEAR YELLOW URINE IN THE BAG-INSTRUCTED ABOUT FLUSHING, BAG CHANGING ETC. NUMEROUS QUESTIONS ASKED AND ANSWERED-VERBALIZED UNDERSTANDING documented in this encounter [facility] 06-18-2022 Note EXAMINATION: CT ABD/ PELVIS [...] mass or enlargement. KIDNEYS: Marked atrophy of [place] kidneys. Transplant right pelvic kidney with percutaneous [...] by: MÓNICA JIMENEZ Date: 2022-06-18 13:53 [facility] 06-12-2022 Instructions Anayeli Christianson RN - 06/12/2022 3:21 PM EDT Do not take apart/disrupt nephrostomy tube system. Call Interventional Radiology and/or on-call transplant nurse [phone] for instruction if need to flush (clot or decreased flow). Take cipro 500mg, one tablet, twice per day for 14 days documented in this encounter [facility] 06-12-2022 History of Present illness Narrative Images from the original note were not included. 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 Residential Roofer: Anayeli Burt Date of Liver Transplant: 04/13/2020 (Kidney), 04/13/2020 (Liver) 2 year, 1 months post Liver/Kidney Transplant Primary Disease: Hypertensive Nephrosclerosis Transplant Director Supply: Steve Latham Primary Care physician: Zuly Bruno [...] LAB AND PHARMACY: None Specified [facility] [place] [address] - [address] [address] [facility] [address] [facility] [place] [address] [facility][id number] [place] [address] [address] [facility] [address] [facility] [address] [facility] [address], [address] [place] [address] ROS and SCREEN: Chest Pain: negative Cough: negative SOB: negative Abd Pain: negative Nausea: positive Vomiting: negative Diarrhea: negative Constipation: negative Dysuria: positive Edema: negative Tremors: negative Headaches: negative Wound issues: negative Pt has neph tube w clear yellow urine. States he had a small clot that he dislodged QUESTIONS OR CONCERNS TO ADDRESS WITH PHYSICIAN: I saw George Styles at the [facility] on 06/12/2022. Patient is a 52 y.o. 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 His [place] kidney disease was noted to be presumed [...] GUIDANCE 05/17/2022 Surgeon: Enzo Heart DO; Location: [facility] INTERVENTIONAL RADIOLOGY (VIR) LIVER TRANSPLANT, ORTHOTOPIC N/A 04/12/2020 Laterality: N/A; Surgeon: LU Palma; Location: [facility] SAME DAY SURGERY MAIN OR KIDNEY TRANSPLANT W/O AGDAAGUX NEPHRECTOMY N/A 04/12/2020 Laterality: N/A; Surgeon: LU Palma; Location: [facility] SAME DAY SURGERY MAIN OR [...] you have any questions. Steve Latham MD procurement forester Division of Nephrology [facility] documented in this encounter [facility] 06-04-2022 TATI Washington - 06/04/2022 11:04 AM EDT Thank you for joining us for your neph tube follow up. We recommend routine exchange every 8-10 weeks. Please reach out at [phone] when it is time to set your next routine exchange. Thank you IR clinic documented in this encounter [facility] 06-04-2022 History of Present illness Narrative [...] exchange. Verbalized understanding. documented in this encounter [facility] 05-20-2022 Note Formatting of this n [...] time of his discharge. Leon Cook RN [facility] 05-20-2022 Miscellaneous Notes Patient discharged. AVS [...] discharge/transition of care. Outcome: Adequate for Discharge Parisd Vera Dillard MD R10 Rm 1006 [address] George Please let's have a clear order on how the nephrostomy site dressing need to be changed when the patient goes home so we provide teaching before his discharge Leon RN #[id number] Leon Cook RN Afternoon assessment completed at [...] Interdisciplinary Rounds/Family Conf Outcome: Ongoing Discussed with [facility] re: possible urine culture performed at [...] with questions. Evan Byrd MD Urology, PGY-2 #[id number] I certify that this patient requires inpatient [...] explained choices provided On admission to [facility], a dual RN initial assessment of skin condition was performed by Kallie Lorenzana RN and Sheri Arguelles RN. Skin Assessment: WDL Jose Score: 20 LDA Added:N Kallie Lorenzana RN documented in this encounter [facility] 05-20-2022 Note Formatting of this n [...] discharge/transition of care. Outcome: Adequate for Discharge [facility] 05-20-2022 Note Formatting of this n ote might be different from the original. Anne Dillard MD R10 Rm 1002 Jensen George Please let's have a clear order on how the nephrostomy site dressing need to be changed when the patient goes home so we provide teaching before his discharge Leon RN #[id number] Leon Cook, [facility] History of Present illness Narrative Images from the original note were not included. [facility] Note: [facility] received the following discharge prescription(s): Medication reconciliation was completed with comparison to discharge reconciliation report. The prescription(s) will be delivered to the patient's bedside on 05/20/22. Total cost is $0. Yanira Her RPh,PharmD Specialty ([place]) [phone] [facility] [phone] [facility] [phone] [facility] [phone] [place] [phone] [facility] ([facility]) [phone] Attending I saw George Styles at the [facility] on 05/19/2022. I saw and independently [...] Daily Progress Note Patient: George Styles, 1970, [id number] Physician: Liam Julian MD, PGY-3, Pager #[phone], [id number] Subjective/Interval History: No acute events overnight. Passed [...] Saldana MD Division of Hospital Medicine Pager [phone] Attending I saw George Styles at the [facility] on 05/18/2022. I saw and independently [...] Daily Progress Note Patient: George Styles, 1970, [id number] Physician: Nishant Gamez MD, PGY2, Pager #[phone], [id number] Subjective/Interval History: Nephrostomy tube placed yesterday with [...] to have stablized for this to be outside medical sales representative. Daya Saldana MD (Peggy) Division of Hospital Medicine Pager [phone] Internal Medicine Daily Progress Note Patient: George Styles, 1970, [id number] Physician: Nishant Gamez MD, PGY2, Pager #[phone], [id number] Subjective/Interval History: Worsening creatinine this morning with [...] MD (Peggy) Division of Hospital Medicine Pager [phone] Attending I saw George Styles at the [facility] on 05/17/2022. I saw and independently [...] of chart and discussion with treatment team, Librarian Helper has not identified needs at this [...] follow. Introduced self and role of the parcel post delivery to patient. Provided emotional and spiritual support and the patient responded by sharing their experience and discussed the following: - Spirituality/Orthodoxy Affiliation: As a kid attended Gnosticism mormon but not a strong identity now - Family support - pt's brothers live close by Driver Courier provided: - Supportive presence - Active listening - Validation of feelings/emotions Patient encouraged to request a parcel post delivery as needed. Chaplains are available in-house 24 hours a day and 7 days a week. For urgent matters in [facility], please page [phone]. If the request is not urgent, please enter a consult. Consults are responded to within 24 hours. Angie Singh Mdiv, [facility] Transplant [place] [phone] [address] C[address] [facility] Driver Courier Kirk [phone] [email or web address] 22/06 [facility] Pager [phone] 22/06 Pager ,[facility], and Brock 1500 22/06 David Pager [...] of life story;Identifying support system Explored Expectations Band Saw Filer Education Band Saw Filer Service Available Yes Educated Patient Outcomes Patient Outcomes Articulated purpose/meaning Plan of Care Continue Visiting PRN Internal Medicine Daily Progress Note Patient: George Styles, 1970, [id number] Physician: Nishant Gamez MD, PGY2, Pager #[phone], [id number] Subjective/Interval History: Overall feeling okay this morning. [...] possible UTI while waiting on urinary cx. 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 [...] Supervision Transfer Assessment: Sit to Stand Transfer Long Bottom Level: Sit->Stand: independent Skilled Intervention/Details: Sit->Stand: x1 from EOB Stand to Sit Transfer Long Bottom Level: Stand->Sit: supervision Assistive Device: Stand->Sit: armed chair Skilled Rationale: Controlled descent for sitting, Verbal cues Gait/Functional Mobility: Gait Assessment Long Bottom Level: Gait: supervision Assistive Device: Gait: gait belt Gait Distance (feet): 200 Gait Deviations Identified: decreased grace, decreased step length, decreased stride length Gait Skilled Rationale: verbal, upright posture Skilled Intervention/Details - Gait: Pt with steady gait without LOB or complaints of SOB. 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 IADL History IADLs: independent Primary Language: Samoan Home Management Skills: independent Meal Prep Responsibility: [...] Assessment: Transfer Assessment: Sit to Stand Transfer Long Bottom Level: Sit->Stand: independent Skilled Rationale: Cues for increased safety Skilled Intervention/Details: Sit->Stand: x1 EOB Stand to Sit Transfer Long Bottom Level: Stand->Sit: supervision Assistive Device: Stand->Sit: gait belt, armed chair Skilled Rationale: Verbal cues, Controlled descent for sitting, Cues for increased safety Skilled Intervention/Details: Stand->Sit: cues for hand placement and controlled descent Functional Mobility: Functional Mobility Long Bottom Level: Functional Mobility/Gait: stand-by assist Assistive Device: Functional Mobility/Gait: gait belt Functional Mobility Distance: Distance needed for limited community mobility Functional Mobility Deficits: Activity tolerance, Balance, Decreased step length, Generalized weakness Functional Mobility Skilled Rationale: Verbal cues, Facilitate postural control Skilled Intervention/Details - Functional Mobility/Gait: cues for upright posture Outcome Score(s): CURRENT [facility] Daily Activity Inpatient Short Form Putting on/Taking Off Lower Body Clothin - A Little Assistance Bathin - A Little Assistance Toiletin - A Little Assistance Putting on/Taking Off Upper Body Clothin - No Assistance Groomin - No Assistance Eatin - No Assistance CURRENT [facility] Activity Raw Score: 21 CURRENT [facility] Activity Functional Limitation/Modifier: 32.79% Currently Impaired [...] DAY SURGERY MAIN OR KIDNEY TRANSPLANT W/O AGDAAGUX NEPHRECTOMY N/A 04/12/2020 Laterality: N/A; Surgeon: LU [...] by: Mel Norman OT, OTR/L License #: [id number] pager # [phone] 05/20/2022 Upon discontinuation of Acute Care Occupational Therapy Services or patient discharge from the hospital this note represents the current Occupational Therapy Discharge Summary. documented in this encounter [facility] 05-20-2022 Hospital course Narrative Discharge Summary [...] recent hospital stay at [facility]. As you may know, George [...] Saldana MD Division of Hospital Medicine p: [phone] f: [phone] CONSULTS DURING ADMISSION: IP CONSULT TO SURGERY - UROLOGY IP CONSULT TO NEPHROLOGY - TRANSPLANT (MEDICINE) IP CONSULT TO INTERVENTIONAL RADIOLOGY IP CONSULT TO PHYSICAL THERAPY IP CONSULT TO OCCUPATIONAL THERAPY IP CONSULT TO PHARMACY BEDSIDE DISCHARGE MED DELIVERY IMAGING / PROCEDURES / RESULTS: Should you require further information or copies of results or reports please contact [employer] @ [phone] LABS AT TIME OF DISCHARGE: Lab Results [...] AT DISCHARGE: Zuly Bruno [address] [facility] / [place] [address] MEDICATIONS: Discharge Orders CT ABDOMEN/PELVIS WITHOUT CONTRAST [...] CAPS Generic drug: docusate Follow-up: Zuly Bruno, THREAD TWISTER [address] [facility] [address] Schedule an appointment as soon as possible for a visit Follow-up appointment with your, primary care physician within 7-10 days, after discharge. [address] [facility] [phone] Follow up The department of urology will call you with a follow up appointment. LU Ovalle [address] 11[address] [facility] [address] Follow up Please make a follow up appointment with Dr. Latham's office. Upcoming Appointments (up to five)-Some appointments for Medical Center outpatient clinics or diagnostic testing locations are not displayed below Provider Department Dept Phone 06/04/2022 10:40 AM ERNESTO MACIEL [facility] Interventional Radiology Clinic [phone] 06/27/2022 1:30 PM MAURICE ROBBY [facility] Department of Radiology Arrive at: Arrive to First Floor Registration Desk [phone] 06/27/2022 2:40 PM Ryan Jyoti Deltashilpadina [facility] [place] Arrive at: Arrive to 2nd Floor, Registration [address] 10/31/2022 1:00 PM Steve Latham [facility] Transplant [facility] [phone] 01/16/2023 9:40 AM TRANSPLANT HEPATOLOGY 3, [facility] Transplant [facility] [phone] Associated attestation - Daya Saldana MD - [...] Saldana MD Division of Hospital Medicine Pager [phone] documented in this encounter [facility] 05-20-2022 Hospital Discharge instructions Giulia Cavazos [...] be changed by Interventional Radiology. Please call [phone] to schedule this appointment and with any questions or concerns you may have regarding the nephrostomy tube. If you have questions or concerns, please call Interventional Radiology at SOMEONE FROM INTERVENTIONAL RADIOLOGY WILL CALL YOU FOR A FOLLOW UP IN THE IR CLINIC Giulia Cavazos RN Nurse Coordinator Interventional Radiology Interventional Radiology Outpatient scheduling documented in this encounter [facility] 05-19-2022 Note Formatting of this n [...] Ongoing Goal: Interdisciplinary Rounds/Family Conf Outcome: Ongoing [facility] 05-19-2022 Note Formatting of this n ote might be different from the original. Discussed with [facility] re: possible urine culture performed at their facility. However, based on urinalysis completed at that time, which was only notable for hematuria, culture was not performed and sample no longer feasible for culture. Liam Julian MD Internal Medicine/Pediatrics, PGY-[address] [facility] 05-18-2022 Note Formatting of this n ote might be different from the original. 2003: IHIS message sent to Dr Justyn Wen, regarding patient passing a small kidney stone, about the size of pea. MD notified. Stone left in strainer in pt bathroom. 0500: IHIS message sent to Dr Justyn Wen, regarding pt BP 174/77. [facility] 05-18-2022 Note Formatting of this n [...] outcomes by discharge/transition of care. Outcome: Ongoing [facility] 05-18-2022 Note Formatting of this n [...] becomes hyponatremic, NS should instead be used. [facility] Work Phone: 05-18-2022 Note Formatting of this n ote might be different from the original. IHIS chat sent to Dr Tray Quintana, regarding pt BP 190/86. Pt complaining of pain at site of neph tube. PRN pain medication given per order parameters. Pt denies any other symptoms at this time. notified and aware. [facility] 05-17-2022 Note Formatting of this n ote might be different from the original. At 0900, I rounded with Dr. Gamez and Dr. Saldana. At that time I checked Mr. Styles's vital signs. His pulse oximeter was low and he was tachypneic. Verbal order at bedside to put nasal cannula on starting at 2liters oxygen and to provide incentive spirometer. [facility] 05-17-2022 Note Formatting of this n ote might be different from the original. Interventional Radiology procedure completed with IR Attending Dr. Heart / Dr. Le of percutaneous right nephrostomy tube placement transplant kidney 10.2 Fr Griffin acosta Pt tolerated procedure with moderate sedation local numbing agent . Transported to inpatient after phase I recovery. Post procedure orders in place. [facility] 05-16-2022 Note Formatting of this n ote might be different from the original. At 1530, I text parisd Kaitlynn Gomez MD that patient has only had 25ml urine output in matias this afternoon. [facility] 05-16-2022 Note Formatting of this n [...] with questions. Evan Byrd MD Urology, PGY-[address] #[id number] [facility] Work Phone: 05-16-2022 Note Formatting of this n ote might be different from the original. I certify that this patient requires inpatient services at this time. I anticipate the expected length of stay will include at least two midnights. Inpatient services are due to the following medical concerns Obstructive kidney stone. Plans for post hospitalization care will be discharge to home. [facility] 05-16-2022 Consult note Associated Order (s): IP CONSULT TO NEPHROLOGY - TRANSPLANT (MEDICINE) I saw George Styles at the [facility] on 05/16/2022. Reason for Consultation: kidney [...] he was given flomax and sent home. [place] better but noticed more pain and decreased [...] best assessment and recommendations. Maxi Pringle MD [facility] Work Phone: 05-16-2022 Consult note Associated Order (s): IP CONSULT TO NEPHROLOGY - TRANSPLANT (MEDICINE) I saw George Styles at the [facility] on 05/16/2022. Reason for Consultation: kidney [...] he was given flomax and sent home. [place] better but noticed more pain and decreased [...] states he went to his local ED [place] and he was put on Flomax and he did improve. Pt states last night he was unable to void with severe right sided abd pain. Pt states nausea and no vomiting or fevers. Pt states he went back to [place] ED at 0100 and they placed a [...] orthotopic (N/A, 04/12/2020); and kidney transplant w/o [place] nephrectomy (N/A, 04/12/2020). 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 The [place] kidneys are progressively atrophic bilaterally compared to [...] of 06/14/2020 are no longer present. The [place] distal right ureter is decompressed beyond this [...] with surgical history for renal graft and [place] right urinary drainage, as a discrete ureteroneocystostomy is not identified, and the graft may be draining via a ureteroureterostomy. Urology consultation recommended. 3. The [place] kidneys are bilaterally atrophic, with right renal sinus calcifications consistent with nonobstructing right [place] renal calculi up to 6 mm. Normal [...] PGY-3, Department of Urologic Surgery Pager #: [phone] Associated attestation - Ryan Yepez MD - [...] documented in this encounter [facility] 05-16-2022 Note Formatting of this n [...] supported Trust Relationship/Rapport: care explained choices provided [facility] 05-16-2022 Note Formatting of this n ote might be different from the original. On admission to [facility], a dual RN initial assessment of skin condition was performed by Kallie Lorenzana RN and Sheri Arguelles RN. Skin Assessment: WDL Jose Score: 20 LDA Added:N Kallie Lorenzana RN [facility] 05-15-2022 Emergency department Note Report given to Kallie RN at [address] [facility] 05-15-2022 Emergency department Note Report given [...] DAY SURGERY MAIN OR KIDNEY TRANSPLANT W/O AGDAAGUX NEPHRECTOMY N/A 04/12/2020 Laterality: N/A; Surgeon: LU Palma; Location: [facility] SAME DAY SURGERY MAIN OR [...] Schneider MD Resident 05/15/222030 Pt arrives from [facility] with kidney stones. Pt states he had right lower abd pain and right flank pain with blood in his urine since Thursday. Pt states he went to his local ED [place] and he was put on Flomax and he did improve. Pt states last night he was unable to void with severe right sided abd pain. Pt states nausea and no vomiting or fevers. Pt states he went back to [place] ED at 0100 and they placed a matias and CT scan completed and multiple kidney stones noted. Pt [facility] ED as he had liver and kidney transplant in 03/2020. documented in this encounter [facility] 05-15-2022 History and physical note Internal Medicine Admission History & Physical Patient: George Styles, 1970, [id number] Physician: Evan Bennett MD, PGY1, Pager #[phone], GM 4 service Date of face to [...] 04/12/2020 Laterality: N/A; Surgeon: LU Palma; Location: [facility] SAME DAY SURGERY MAIN OR KIDNEY TRANSPLANT W/O AGDAAGUX NEPHRECTOMY N/A 04/12/2020 Laterality: N/A; Surgeon: LU Palma; Location: [facility] SAME DAY SURGERY MAIN OR [...] erythema: Skin: No jaundice or rash Neuro: aging department supervisor 3-7, 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 Strength [...] dilation of the calyces may represent narrowing/partial [id number] ofthe ureter and mild hydronephrosis or sequela [...] of Hospital Medicine [phone] [facility] Work Phone: 05-15-2022 History and physical note Internal Medicine Admission History & Physical Patient: George Styles, 1970, [id number] Physician: Evan Bennett MD, PGY1, Pager #[phone], GM 4 service Date of face to [...] 04/12/2020 Laterality: N/A; Surgeon: UL Palma; Location: [facility] SAME DAY SURGERY MAIN OR KIDNEY TRANSPLANT W/O AGDAAGUX NEPHRECTOMY N/A 04/12/2020 Laterality: N/A; Surgeon: LU Palma; Location: [facility] SAME DAY SURGERY MAIN OR [...] erythema: Skin: No jaundice or rash Neuro: aging department supervisor 3-7, 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 Strength [...] dilation of the calyces may represent narrowing/partial [id number] ofthe ureter and mild hydronephrosis or sequela [...] documented in this encounter [facility] 05-15-2022 Emergency department Note Bladder scan with Dr Villatoro at bedside, 14ml noted [facility] 05-15-2022 Consult note Associated Order (s): [...] states he went to his local ED [place] and he was put on Flomax and he did improve. Pt states last night he was unable to void with severe right sided abd pain. Pt states nausea and no vomiting or fevers. Pt states he went back to [place] ED at 0100 and they placed a [...] orthotopic (N/A, 04/12/2020); and kidney transplant w/o [place] nephrectomy (N/A, 04/12/2020). 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 The [place] kidneys are progressively atrophic bilaterally compared to [...] of 06/14/2020 are no longer present. The [place] distal right ureter is decompressed beyond this [...] with surgical history for renal graft and [place] right urinary drainage, as a discrete ureteroneocystostomy is not identified, and the graft may be draining via a ureteroureterostomy. Urology consultation recommended. 3. The [place] kidneys are bilaterally atrophic, with right renal sinus calcifications consistent with nonobstructing right [place] renal calculi up to 6 mm. Normal [...] PGY-3, Department of Urologic Surgery Pager #: [phone] Associated attestation - Ryan Yepez MD - [...] intervention --may continue flomax [facility] Work Phone: 05-15-2022 Emergency department Note Advised Dr Schneider concerning no urine output via matias catheter. [facility] 05-15-2022 Physician Emergency department Note ED Attending George Feliz Jensen has a past medical history of Acute renal failure, CAD (coronary artery disease), Cirrhosis, Dialysis patient, End stage renal disease (06/01/2018), Essential hypertension, benign, Hepatic encephalopathy, History of blood transfusion, and Liver cirrhosis. Presents with a chief complaint of kidney stone and diagnosed Thursday and [facility] He went back to that [...] plan of care. Gian Villatoro MD 05/15/222003 [facility] Work Phone: 05-15-[address] Schneider made aware of only 30 ml urine via matias since arrival to room. [facility] 05-15-2022 Physician Emergency department Note dEPARTMENT [...] DAY SURGERY MAIN OR KIDNEY TRANSPLANT W/O AGDAAGUX NEPHRECTOMY N/A 04/12/2020 Laterality: N/A; Surgeon: LU [...] any incorrections. Matt Schneider MD Resident 05/15/2220[address] [facility] Work Phone: 05-15-2022 Emergency department Note Pt arrives from [facility] with kidney stones. Pt states he had right lower abd pain and right flank pain with blood in his urine since Thursday. Pt states he went to his local ED [place] and he was put on Flomax and he did improve. Pt states last night he was unable to void with severe right sided abd pain. Pt states nausea and no vomiting or fevers. Pt states he went back to [place] ED at 0100 and they placed a matias and CT scan completed and multiple kidney stones noted. Pt sent to [facility] ED as he had liver and kidney transplant in 03/2020. [facility] 03-14-2022 History of Present illness Narrative [...] Required: No Mailing/Pickup Date: 03/17/2022 Shipping Address: [address] [place] [address] [address] Contact Info: Specialty ([place]) [phone] Jakob [phone] [facility] [phone] David [phone] Bedside Delivery ([facility]) [phone] [facility] History of Present [...] 05/16/22 Goal Progress: Satisfactory Contact Info: Specialty ([place]) [phone] [facility] [phone] [facility] [phone] David [phone] Bedside Delivery ([facility]) [phone] [facility] OP RX OUTREACH: Call Information: Date [...] Location: Home Signature Required: Yes Shipping Address: [address] [place] [address] [address] [facility] [address] Contact Info: Specialty ([place]) [phone] Jakob [phone] [facility] [phone] [facility] [phone] Bedside Delivery ([facility]) [phone] documented in this encounter [facility] Evaluation note Diagnosis FAYE (acute kidney injury)- Primary Acute kidney failure, unspecified Hydronephrosis due to obstruction of ureteral orifice Hydronephrosis due to obstruction of ureteral orifice FAYE (acute kidney injury) Acute kidney failure, unspecified [facility] Diagnosis Follow-up exam- Primary Unspecified follow-up examination [facility] Diagnosis Immunosuppressed status- Primary Unspecified disorder of immune mechanism Kidney replaced by transplant Liver replaced by transplant Abnormal blood chemistry Other abnormal blood chemistry High risk medication use Encounter for long-term (current) use of other medications Aftercare following organ transplant Liver transplant recipient [facility] Diagnosis Attention to nephrostomy- Primary [facility] Diagnosis Other hydronephrosis- Primary [facility] Diagnosis FAYE (acute kidney injury) Acute kidney failure, unspecified [facility] Diagnosis Other hydronephrosis- Primary -donor kidney transplant recipient Kidney replaced by transplant [facility] Diagnosis Other hydronephrosis [facility] Diagnosis 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 Diagnosis Abnormal blood chemistry- Primary Other abnormal blood chemistry Liver transplant recipient Kidney replaced by transplant Immunosuppressed status Unspecified disorder of immune mechanism Aftercare following organ transplant [facility] Diagnosis Kidney replaced by transplant- Primary [facility] Diagnosis Immunosuppressed status- Primary Unspecified disorder of immune mechanism Kidney replaced by transplant Aftercare following organ transplant High risk medication use Encounter for long-term (current) use of other medications Other general symptoms and signs Abnormal blood chemistry Other abnormal blood chemistry Hypertension secondary to other renal disorders [facility] Histoplasmosis- Primary Histoplasmosis, unspecified [...] Fever Fever, unspecified [facility] Diagnosis Bilateral lower extremity edema- [...] specified pre-operative examination [facility] Diagnosis Heart failure, diastolic, acute- Primary Acute diastolic heart failure [facility] Liver lesion- Primary Other specified disorders of liver Liver transplant recipient High risk medication use Encounter for long-term (current) use of other medications Therapeutic drug monitoring Encounter for therapeutic drug monitoring Immunocompromised Unspecified immunity deficiency [facility] Diagnosis Kidney replaced by transplant- Primary [facility] Consultation (Routine) - New Request Specialty Diagnoses / Procedures Referred By Deni ewdards Referred To Contact Interventional Radiology Diagnoses Hydronephrosis due to obstruction of ureteral orifice Daya Saldana MD [address] [place] [phone] Referral ID Status Reason Start Date Expiration Date V isits Requested Visits Authorized [id number] New Request 05/18/2022 06/12/2023 1 1 * Radiology (Emergency) - New Request Specialty Diagnoses / Procedures Referred By Deni edwards Referred To Contact Procedures US RENAL TRANSPLANT SCAN Daya Saldana MD [address] [place] [phone] Referral ID Status Reason Start Date Expiration Date V isits Requested Visits Authorized [id number] New Request 05/16/2022 06/10/2023 1 1 * Consultation (Routine) - New Request Specialty Diagnoses / Procedures Referred By Deni edwards Referred To Contact Urology Diagnoses FAYE (acute kidney injury) Ryan Yepez MD [address] [place], [place] [phone] Referral ID Status Reason Start Date Expiration Date V isits Requested Visits Authorized [id number] New Request 05/16/2022 06/10/2023 1 1 * MRI/CAT Scan (Routine) - New Request Specialty Diagnoses / Procedures Referred By Contac t Referred To Contact Diagnoses FAYE (acute kidney injury) Procedures CT ABDOMEN/PELVIS WITHOUT CONTRAST CHG CT SCAN,ABDOMENT AND PELVIS,W/O CONTRAST Ryan Yepez MD [address] [facility] [address] [place] [address] Referral ID Status Reason Start Date Expiration Date V isits Requested Visits Authorized [id number] New Request 05/16/2022 06/10/2023 1 1 * (Routine) - Pending Review Specialty Diagnoses / Procedures Referred By Contac t Referred To Contact Procedures PLATELET MONITORING PER PROTOCOL Daya Saldana MD [address] [place] [address] Referral ID Status Reason Start Date Expiration Date V isits Requested Visits Authorized [id number] Pending Review 05/15/2022 06/09/2023 1 1 * (Routine) - Pending Review Specialty Diagnoses / Procedures Referred By Contac t Referred To Contact Procedures DVT/VTE RISK ASSESSMENT Daya Saldana MD [address] [place] [address] Referral ID Status Reason Start Date Expiration Date V isits Requested Visits Authorized [id number] Pending Review 05/15/2022 06/09/2023 1 1 * (Routine) Specialty Diagnoses / Procedures Referred By Contac t Referred To Contact Evan Bennett MD [address] [place] [address] Referral ID Status Reason Start Date Expiration Date Visits Re quested Visits Authorized * (Routine) Specialty Diagnoses / Procedures Referred By Contac t Referred To Contact Evan Bennett MD [address] [place] [address] Referral ID Status Reason Start Date Expiration Date Visits Re quested Visits Authorized [facility] (narrative)* Consultation (Routine) - New Request Specialty Diagnoses / Procedures Referred By Contac t Referred To Contact Sleep Medicine Diagnoses Hypoxia Kevin Sage MD [address] [place] [address] Referral ID Status Reason Start Date Expiration Date V isits Requested Visits Authorized [id number] New Request 09/10/2023 10/04/2024 1 1 * MRI/CAT Scan (Routine) - New Request Specialty Diagnoses / Procedures Referred By Contdaniel t Referred To Contact Diagnoses Histoplasmosis Procedures CT CHEST WITHOUT CONTRAST CHG DIAGNOSTIC COMPUTED TOMOGRAPHY THORAX W/O Kevin Zarate MD [address] [place] [address] Referral ID Status Reason Start Date Expiration Date V isits Requested Visits Authorized [id number] New Request 09/10/2023 10/04/2024 1 1 * Radiology (Routine) - New Request Specialty Diagnoses / Procedures Referred By Contdaniel t Referred To Contact Procedures US RENAL TRANSPLANT SCAN Steve Latham MBBS [address] [place] [address] Referral ID Status Reason Start Date Expiration Date V isits Requested Visits Authorized [id number] New Request 08/29/2023 09/22/2024 1 1 * (Routine) - New Request Specialty Diagnoses / Procedures Referred By Contac t Referred To Contact Procedures PLATELET MONITORING PER PROTOCOL Steve Latham MBBS [address] [place] [address] Referral ID Status Reason Start Date Expiration Date V isits Requested Visits Authorized [id number] New Request 08/28/2023 09/21/2024 1 1 * (Routine) - New Request Specialty Diagnoses / Procedures Referred By Contac t Referred To Contact Procedures DVT/VTE RISK ASSESSMENT Steve Latham MBBS [address] [address] Referral ID Status Reason Start Date Expiration Date V isits Requested Visits Authorized [id number] New Request 08/28/2023 09/21/[address] [facility] * Patient Instructions - Christin Elizabeth APRN-ROB - 10/19/2018 9:21 AM EST You should take an extra dose of the lactulose as needed so that you are having 3-4 bowel movementsdaily. You should start the chemical dependency counseling as soon as possible. If you have questions, call the transplant social media content specialist Fidelina Pierson. in this encounter* Patient Instructions - Sophie Cary RN - 10/12/2018 11:09 AM EST You have been seen in the pre-transplant evaluation clinic by Dr. Restrepo and Sophie Cary. Sophie Cary is your pre-organ recovery coordinator she can be reached at [phone] at any time for questions during the pre-transplant process. Your evaluation is complete pendin. Abdominal ultrasound. 2. 6 minute walk test. 3. Cardiology evaluation. Additionally, your reimbursement manager will recommend testing to screen for coronary artery disease. This will be scheduled for you after your cardiology visit. 4. Your coordinator will be requesting record from your last dental visit, colonoscopy and EGD. 5. Please work to complete social work recommendations. Your social media content specialist will be contacting you to follow up on your progress. 6. You have also been referred for a kidney transplant. An appointment will be scheduled for you sari evaluated in the kidney transplant clinic after you have satisfied requirements dictated by [employer]. Once your testing is complete, we [...] ___ Other Name MRN * Christin Elizabeth, PROPULSION MOTOR AND GENERATOR REPAIRER-THREAD TWISTER - 10/19/2018 9:00 AM EST Formatting of this note may be different from the original. History of Present Illness: Chief Complaint Patient presents with Follow-up Cirrhosis George Styles is a 48 y.o. male who presents to the [facility] Gastroenterology Clinic today regarding his diagnosis/chief complaint(s) of Cirrhosis secondary to ETOH, with ESRD follows with Dr. Orr. Currently undergoing evaluation for liver/kidney transplant. Has been seen in transplant clinic for eval. Still undergoing pre testing. Diagnosed in April 2018. Last drink was immediately prior to hospital admission in [place] for ACLF. Hospital course notable for ARF [...] kidney transplant evaluation. Pt was AOx3. Transplant Mobile Patrol Officer role/function was explained and reviewed. The patient was informed that the results of this assessment will be shared with the referring provider and the transplant team. The patient verbalized understanding of this information. The [facility] psychosocial assessment consent form has been explained to patient and has been signed. Pt is completing this evaluation with brother (David) in the Outpatient setting. NANCYK educated pt on the benefits of completing/filing advanced directives and resources were offered. Pt identifies with MORAVIAN orthodoxy. Pt confirms being a [place] Citizen. Pt.'s primary language is Samoan. Pt confirms the ability to read,write, and understand Samoan. Pt denies potential donors. Donor cards and [...] has valid license, does not regularly drive ([facility] recommends that he not to drive). [...] related disease etoh cirrohosis April dx in [facility] for thirty days. Pt reports [...] as well as referred him to pre organ recovery coordinator. Pt and support demonstrated moderate understanding [...] Patient's brother David is a self employed human anatomy teacher. Additional support includes his other brother Tyshawn and his Mary live fifteen minutes away. Of note Mary is a biomedical service engineer for a [employer] is available to assist repair department manager. He confirms being comfortable asking for [...] in 2010, he was employed by the [employer]. He has access to SSDI payment (SSDI starts in November) in regards to financial means pre/ post-transplant. Pt confirms (meeting bills currently, ) being able to meet daily needs. Patient's brother asking for additional information on community resources, food stamps and [place]. Refer him to pt.'s dialysis center and the [facility]. Hereports access to Medicaid. Pt. denies [...] a DUI charge [facility] in [place], court ordered treatment in 2001 and in [...] He was provided with local AOD resources, [facility] AOD informational packet. Pt was [...] new visit Date of service: 10/12/2018 -Referring internal controls manager for today's consult: -Primary Care Provider: Zuly Bruno CC: Chief Complaint Patient presents with Liver Recipient Evaluation History of Present Illness George Styles is a 48 y.o. male who presents to the [facility] liver transplant surgery clinic today for [...] fatal processes progressing rapidly Unknown * Elisa TiwariSONU - 10/12/2018 10:00 AM EST Timed up and go 9.9 seconds Tax Representative Left 52.8 pounds Right 44.9 pounds Waist circ 38.5 inches * Sophie Cary, SAMI - 10/12/2018 10:00 AM EST Formatting of this note may be different from the original. Patient George Styles ([id number]), accompanied by his brother, was seen on [...] any further questions. Sophie GUERINN, RN Liver Residential Roofer Etiology: ETOH HCC: No ETOH: Yes Last [...] Yovani Orr MD [address] [address] Status Reason Specialty Diagnoses / Procedures Referred By Contact Referred To Contact New Request Diagnoses Cirrhosis of liver with ascites, unspecified hepatic cirrhosis type Procedures US ABDOMEN RUQ/LIVER/GB Yovani Orr MD [address] [address] Specialty Diagnoses / Procedures Referred By Contac t Referred To Contact Diagnoses FAYE (acute kidney injury) Procedures CT ABDOMEN/PELVIS WITHOUT CONTRAST CHG CT SCAN,ABDOMENT AND PELVIS,W/O CONTRAST Central Scheduling [address] [place] [phone] Referral ID Status Reason Start Date Expiration Date V isits Requested Visits Authorized [id number] Pending Review 05/16/2022 06/10/2023 1 1 Specialty Diagnoses / Procedures Referred By Contac t Referred To Contact Diagnoses Other hydronephrosis Procedures FLUORO IMAGING FOR UROLOGY Ryan Yepez MD [address] [facility] [address] [place] [address] Referral ID Status Reason Start Date Expiration Date V isits Requested Visits Authorized [id number] New Request 07/07/2022 08/01/2023 1 1 Specialty Diagnoses / Procedures Referred By Contac t Referred To Contact Procedures DIRECT ADMIT REQUEST Steve Latham MBBS [address] [place] [address] Referral ID Status Reason Start Date Expiration Date V isits Requested Visits Authorized [id number] New Request 08/28/2023 09/21/2024 1 1 Specialty Diagnoses / Procedures Referred By Contac t Referred To Contact Radiology Diagnoses DARLENE (obstructive sleep apnea) Primary hypertension (CMS/HCC) Bilateral lower extremity edema Shortness of breath Procedures Echocardiogram 2D complete Zuly Bruno, BA [address] [place] [address] Referral ID Status Reason Start Date Expiration Date Visits Requested Visits Authorized [id number] Incomplete Perform Procedure 01/06/2024 07/04/2024 1 1 Specialty Diagnoses / Procedures Referred By Contac t Referred To Contact Procedures US IMAGING REGIONAL ANESTHESIA Kehinde Gutierrez MD [address] [place] [address] Referral ID Status Reason Start Date Expiration Date V isits Requested Visits Authorized [id number] New Request 01/22/2024 02/15/2025 1 1 Specialty Diagnoses / Procedures Referred By Contac t Referred To Contact Cardiovascular Medicine Diagnoses Heart failure, diastolic, acute Kelvin Pacheco MD, JOSHBS [address] [place] [address] Referral ID Status Reason Start Date Expiration Date V isits Requested Visits Authorized [id number] New Request 01/20/2024 02/13/2025 1 1 Specialty Diagnoses / Procedures Referred By Contac t Referred To Contact Procedures US ABDOMEN LIVER DOPPLER US ABDOMEN LIVER TRANSPLANT DOPPLER Timothy Joseph MD [address] [facility] [address] [place] [address] Referral ID Status Reason Start Date Expiration Date V isits Requested Visits Authorized [id number] New Request 01/16/2024 02/09/2025 1 1 Specialty Diagnoses / Procedures Referred By Contac t Referred To Contact Procedures DVT/VTE RISK ASSESSMENT Kelvin Pacheco MD, MBBS [address] [place] [address] Referral ID Status Reason Start Date Expiration Date V isits Requested Visits Authorized [id number] New Request 01/16/2024 02/09/2025 1 1 Specialty Diagnoses / Procedures Referred By Contac t Referred To Contact Procedures PLATELET MONITORING PER PROTOCOL Kelvin Pacheco MD, MBBS [address] [address] Referral ID Status Reason Start Date Expiration Date V isits Requested Visits Authorized [id number] New Request 01/16/2024 02/09/2025 1 1 Referral ID Status Reason Start Date Expiration Date V isits Requested Visits Authorized [id number] New Request 01/16/2024 02/09/2025 1 1 Specialty Diagnoses / Procedures Referred By Contac t Referred To Contact Procedures ECG Kelvin Pacheco MD, MBBS [address] [place] [phone] Referral ID Status Reason Start Date Expiration Date V isits Requested Visits Authorized [id number] New Request 01/16/2024 02/09/2025 1 1 Specialty Diagnoses / Procedures Referred By Contac t Referred To Contact Diagnoses Liver lesion Procedures MRI ABDOMEN WITH AND WITHOUT CONTRAST CHG MRI ABDOMEN W/O & W/CONTRAST MATERIAL Daisha Max, DO [address] [place] [phone] Referral ID Status Reason Start Date Expiration Date V isits Requested Visits Authorized [id number] New Request 06/17/2024 07/12/2025 1 1 Advance Directives No Advanced Directives Records FoundDocuments on File Type Date Recorded 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 Expl 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 Advance Directives and Living Will Power of Polygraph Operator Latest Code Status on File Code [...] Yovani Orr MD [address] [place] [phone] Status Reason Specialty Diagnoses / Procedures Referre d By Contact Referred To Contact Denied Diagnoses Alcoholic cirrhosis, unspecified whether ascites present Pre-transplant evaluation for liver transplant Procedures MRI ABDOMEN WITH CONTRAST TX MRI, ABDOMEN W/CONTRAST Yovani Orr MD [address] [place] [address] [place] [address] Reason Comments Liver Recipient Evaluation Status Reason Specialty Diagnoses / Procedures Referred By Contact Referred To Contact New Request Transplant / Transplant Surgery Procedures PRE NEW PATIENT Yovani Orr MD [address] [place] [address] [place] [address] Alfredito Restrepo MD [address] [place] [address] Reason Comments Reschedule Reason Comments Outside Medical Records Request Reason Comments Social Work Follow-up Reason Comments Kidney Stone Specialty Diagnoses / Procedures Referred By Contac t Referred To Contact Diagnoses Obstructing kidney stone, s/p kidney transplant 2019 Daya Saldana MD [address] [place] [address] [facility] [address] [place] [address] Referral ID Status Reason Start Date Expiration Date Visits Re quested Visits Authorized [id number] 1 1 Reason Comments Follow-up Reason Comments Kidney Recipient Follow-up Liver Recipient Follow-up Reason Comments Consult Reason Comments New Patient Hospital follow up Specialty Diagnoses / Procedures Referred By Contac t Referred To Contact Urology Diagnoses hosp fu with [address] prior Procedures NEW TO DOC/RET PATIENT Zuly Bruno, THREAD TWISTER [address] [place] [address] Ryan Yepez MD [address] [place] [address] [address] [place] [address] Referral ID Status Reason Start Date Expiration Date Visits Re quested Visits Authorized [id number] Closed 06/27/2022 07/22/2023 1 1 Specialty Diagnoses / Procedures Referred By Contac t Referred To Contact Diagnoses FAYE (acute kidney injury) Procedures CT ABDOMEN/PELVIS WITHOUT CONTRAST CHG CT SCAN,ABDOMENT AND PELVIS,W/O CONTRAST Central Scheduling [address] [place] [phone] Referral ID Status Reason Start Date Expiration Date V isits Requested Visits Authorized [id number] Pending Review 05/16/2022 06/10/2023 1 1 Reason Comments Follow-up Specialty Diagnoses / Procedures Referred By Contac t Referred To Contact Urology Diagnoses 1 week fu post NT clamp Procedures RETURN PATIENT Zuly Bruno, THREAD TWISTER [address] [place] [address] Ryan Yepez MD [address] [place] [address] [address] [place] [address] Referral ID Status Reason Start Date Expiration Date Visits Requested Visits Authorized [id number] Authorized - 07/07/2022 08/01/2023 2 2 Specialty Diagnoses / Procedures Referred By Contac t Referred To Contact Diagnoses Other hydronephrosis Procedures FLUORO IMAGING FOR UROLOGY Ryan Yepez MD [address] [facility] [address] [place] [address] Referral ID Status Reason Start Date Expiration Date V isits Requested Visits Authorized [id number] New Request 07/07/2022 08/01/2023 1 1 Specialty Diagnoses / Procedures Referred By Contac t Referred To Contact Urology Diagnoses 1 week fu post NT clamp Procedures RETURN PATIENT Zuly Bruno, THREAD TWISTER [address] [place] [address] Ryan Yepez MD [address] [address] [place] [address] Referral ID Status Reason Start Date Expiration Date Visits Re quested Visits Authorized [id number] Closed 07/07/2022 08/01/2023 2 2 Reason Comments Liver Recipient Follow-up Reason Comments Kidney Recipient Follow-up Reason Comments Kidney Recipient Follow-up Specialty Diagnoses / Procedures Referred By Contac t Referred To Contact Diagnoses Kidney replaced by transplant Steve Latham MBBS [address] [place] [address] [facility] [address] [place] [address] Referral ID Status Reason Start Date Expiration Date Visits Re quested Visits Authorized [id number] 1 1 Specialty Diagnoses / Procedures Referred By Contac t Referred To Contact Diagnoses Pleural effusion on right PNEUMONIA- HX LIVER AND KIDNEY TRANSPLANT Kevin Sage MD [address] [place] [address] [facility] [address] [place] [address] Referral ID Status Reason Start Date Expiration Date Visits Re quested Visits Authorized [id number] 1 1 Reason Comments New Patient Specialty Diagnoses / Procedures Referred By Contac t Referred To Contact Cardiovascular Medicine Diagnoses Heart failure, diastolic, acute Kelvin Pacheco MD, MBBS [address] [place] [address] Referral ID Status Reason Start Date Expiration Date Visits Requested Visits Authorized [id number] Authorized - 01/20/2024 02/13/2025 5 5 Reason Comments Liver Recipient Follow-up (unrecognized sect ion and content) No Status Records FoundNo Status Records FoundNo Status Records FoundNo Status Records FoundNo Status Records FoundNo Status Records FoundNo Status Records Found INFORMATION SOURCE (unrecogn ized section and content) DATE CREATED AUTHOR 01/07/2020 Karlie ariza DATE CREATED AUTHOR AUTHOR'S ORGANIZ ATION 01/27/2021 [facility] DATE CREATED AUTHOR AUTHOR'S ORGANIZ ATION 05/11/2023 [facility] DATE CREATED AUTHOR AUTHOR'S ORGANIZ ATION 06/03/2024 [facility] DATE CREATED AUTHOR AUTHOR'S ORGANIZ ATION 06/20/2024 [facility] DATE CREATED AUTHOR AUTHOR'S ORGANIZ ATION 08/25/2024 [facility] DATE CREATED AUTHOR AUTHOR'S ORGANIZ ATION 08/26/2024 [facility] Care Teams (unrecognized sec tion and content) Welt Butter Hand Relationship Specialty Start Date End Date uZly Bruno CNP PCP - General 07/19/18 Comfort Rivera, [facility] [address] [facility] [address] [place] [phone] Pharmacist Pharmacist 05/16/20 Angel Carpio [facility],PharmD Pharmacist Pharmacist 05/16/20 Te Leigh [facility],PharmD Pharmacist Pharmacist 01/09/21 Welt Butter Hand Relationship Specialty Start Date End Date Zuly Bruno CNP PCP - General 07/19/18 Comfort Rivera, [facility] [address] [facility] [address] [place] [address] Pharmacist Pharmacist 05/16/20 Angel Carpio [facility],PharmD Pharmacist Pharmacist 05/16/20 Te Leigh [facility],PharmD Pharmacist Pharmacist 01/09/21 Welt Butter Hand Relationship Specialty Start Date End Date Zuly Bruno CNP PCP - General 07/19/18 Welt Butter Hand Relationship Specialty Start Date End Date Zuly Bruno CNP PCP - General 07/19/18 Welt Butter Hand Relationship Specialty Start Date End Date Zuly Bruno CNP PCP - General 07/19/18 Welt Butter Hand Relationship Specialty Start Date End Date Zuly Bruno CNP PCP - General 07/19/18 Welt Butter Hand Relationship Specialty Start Date End Date Zuly Bruno CNP PCP - General 07/19/18 Welt Butter Hand Relationship Specialty Start Date End Date Zuly Bruno CNP PCP - General 07/19/18 Welt Butter Hand Relationship Specialty Start Date End Date Zuly Bruno CNP PCP - General 07/19/18 Welt Butter Hand Relationship Specialty Start Date End Date Zuly Bruno CNP PCP - General 07/19/18 Welt Butter Hand Relationship Specialty Start Date End Date Zuly Bruno CNP PCP - General 07/19/18 Welt Butter Hand Relationship Specialty Start Date End Date Zuly Bruno CNP PCP - General 07/19/18 Welt Butter Hand Relationship Specialty Start Date End Date Zuly Bruno CNP PCP - General 07/19/18 Welt Butter Hand Relationship Specialty Start Date End Date Zuly Bruno CNP PCP - General 07/19/18 Welt Butter Hand Relationship Specialty Start Date End Date LexielydialatishaZuly tipton CNP PCP - General 07/19/18 Welt Butter Hand Relationship Specialty Start Date End Date LexielydialatishaZuly tipton ROB PCP - General 07/19/18 Welt Butter Hand Relationship Specialty Start Date End Date Lexielydialatishaomer Zuly, ROB PCP - General 07/19/18 Evan White DO [address] [place], [place] [phone] Infectious Disease Infectious Disease 09/09/23 Welt Butter Hand Relationship Specialty Start Date End Date LexielydiaZuly dorantes CNP PCP - General 07/19/18 Evan White DO [address] [place] [address] Infectious Disease Infectious Disease 09/09/23 Welt Butter Hand Relationship Specialty Start Date End Date LexielydiaZuly dorantes CNP PCP - General 07/19/18 Evan White DO [address] [place] [address] Infectious Disease Infectious Disease 09/09/23 Welt Butter Hand Relationship Specialty Start Date End Date Momo Verdugo MD PCP - General Family Medicine 05/21/23 Welt Butter Hand Relationship Specialty Start Date End Date Momo Verdugo MD PCP - General Family Medicine 05/21/23 Welt Butter Hand Relationship Specialty Start Date End Date Momo Verdugo MD PCP - General Family Medicine 05/21/23 Welt Butter Hand Relationship Specialty Start Date End Date Zuly Bruno CNP PCP - General 07/19/18 Evan White DO [address] [place], [place] [id number] Infectious Disease Infectious Disease 09/09/23 Welt Butter Hand Relationship Specialty Start Date End Date Zuly Bruno CNP PCP - General 07/19/18 Evan White DO [address] [place] [address] Infectious Disease Infectious Disease 09/09/23 Welt Butter Hand Relationship Specialty Start Date End Date Zuly Bruno CNP PCP - General 07/19/18 Evan White DO [address] [place] [address] Infectious Disease Infectious Disease 09/09/23 Welt Butter Hand Relationship Specialty Start Date End Date Zuly Bruno CNP PCP - General 07/19/18 Evan White DO [address] [place] [id number] Infectious Disease Infectious Disease 09/09/23 Welt Butter Hand Relationship Specialty Start Date End Date Zuly Bruno CNP PCP - General 07/19/18 [place] [address] [place] [address] Infectious Disease Infectious Disease 09/09/23 Welt Butter Hand Relationship Specialty Start Date End Date LexielydiaZuly dorantes CNP PCP - General 07/19/18 Welt Butter Hand Relationship Specialty Start Date End Date LexielydiaZuly dorantes CNP PCP - General 07/19/18 Welt Butter Hand Relationship Specialty Start Date End Date LexielydiaAnnie dorantesaROB PCP - General 07/19/18 Welt Butter Hand Relationship Specialty Start Date End Date Zuly Bruno CNP PCP - General 07/19/18 Welt Butter Hand Relationship Specialty Start Date End Date LexielydiaAnnie dorantesaROB PCP - General 07/19/18 Welt Butter Hand Relationship Specialty Start Date End Date LexielydiaAnnie dorantestray ROB PCP - General 07/19/18 Scheduled Active and [...] Braun, RN)1754 (Given - Provider: Josey Braun, RN)2058 (Given - Provider: Carolyn Isaac, SAMI) [...] Isaac RN)182 (Restarted - Provider: Carolyn Isaac RN)1925 (Rate/Dose [...] RN) 0825 (Given - Provider: Josey Braun, RN)2104 (Given - Provider: Carolyn Isaac, SAMI) oxyCODONE HCl (ROXICODONE) tablet 10 mg(Linked Group 2) 10 mg, Oral, EVERY 4 HOURS NEEDED, Starting on Thu05/16/22 at 0614, Until Thu05/20/22 at 2110, Severe Pain 0338 (Given - Provider: Carolyn Isaac RN)0806 (Given - Provider: Mel Hampton RN) 08 (See Alternative - Provider: Josey Braun RN)2104 [...] dose on Thu08/28/23 at 2100, Until Discontinued 203 (Given - Provider: Girish Nunez RN) 202 [...] Nunez, SAMI) 2205 (Given - Provider: Carolyn Plasencia, SAMI) [...] Mera MD) 0900 (Automatically Held - Provider: Arelsi Mera MD) 0900 (Automatically Held - Provider: Arelis Mera MD)1752 (Unheld by provider - Provider: System Discharge) aspirin chewable tablet 81 mg 81 mg, Oral, DAILY, First dose on 01/16/24 at 0900, Until Discontinued, On hold since [facility] 01/21/2024 at 0802 until manually unheld 08 [...] Until Discontinued 08 (Given - Provider: Erica Ross RN)1619 (Given [...] Reason: Transfer to a Procedural area)1414 ([facility] Unhold - Provider: Automatic Transfer)2008 (Given - [...] is needed. 08 (Given - Provider: Erica Ross RN)2033 (Given [...] (Given - Provider: Erica Ross RN) 1053 (JAN Hold - Provider: Automatic Transfer - Reason: Transfer to a Procedural area)1414 ([facility] Unhold - Provider: Automatic Transfer) 0923 (Given [...] Reason: Transfer to a Procedural area)1414 ([facility] Unhold - Provider: Automatic Transfer) 0920 (Given [...] Reason: Transfer to a Procedural area)1414 ([facility] Unhold - Provider: Automatic Transfer) 0920 (Given [...] all sources in 24 hours. 1053 ([facility] Hold - Provider: Automatic Transfer - Reason: Transfer to a Procedural area)1414 ([facility] Unhold - Provider: Automatic Transfer)1806 (Given - [...] mg and Simethicone 20 mg) 1053 ([facility] Hold - Provider: Automatic Transfer - Reason: Transfer to a Procedural area)1414 ([facility] Unhold - Provider: Automatic Transfer) guaiFENesin (ROBITUSSIN) oral solution 400 mg 400 mg, Oral, EVERY 6 HOURS NEEDED, Starting on 01/16/24 at 0202, Until 01/23/24 at 1752, Cough, Congestion 1053 ([facility] Hold - Provider: Automatic Transfer - Reason: Transfer to a Procedural area)1414 ([facility] Unhold - Provider: Automatic Transfer) HYDROmorphone (DILAUDID) [...] 0016, Until 01/23/24 at 1752, Insomnia 1053 ([facility] Hold - Provider: Automatic Transfer - Reason: Transfer to a Procedural area)1414 ([facility] Unhold - Provider: Automatic Transfer)2355 (Given - Provider: Tati Ahmadi RN) Ondansetron (ZOFRAN) tablet 4 mg(Linked Group 1) 4 mg, Oral, EVERY 6 HOURS NEEDED, Starting on 01/16/24 at 0202, Until 01/23/24 at 1752, Nausea / Vomiting, 1st line for Nausea/Vomiting 1053 ([facility] Hold - Provider: Automatic Transfer - Reason: Transfer to a Procedural area)1414 ([facility] Unhold - Provider: Automatic Transfer)1809 (See Alternative [...] Reason: Transfer to a Procedural area)1414 ([facility] Unhold - Provider: Automatic Transfer)1809 (Given - [...] Reason: Transfer to a Procedural area)1414 ([facility] Unhold - Provider: Automatic Transfer) Prochlorperazine (COMPAZINE) injection 10 mg 10 mg, Intravenous, EVERY 6 HOURS NEEDED, Starting on 01/17/24 at 1538, Until 01/23/24 at 1752, Nausea / Vomiting, Refractory Nausea Vomiting, For IV route: dilute dose with 10mL normal saline and give by slow IV push at a rate of 5mg/min. Maximum of 40mg/day. 1053 ([facility] Hold - Provider: Automatic Transfer - Reason: Transfer to a Procedural area)1414 ([facility] Unhold - Provider: Automatic Transfer)2349 (Given - [...] intermittent or piggy back medication. 1053 ([facility] Hold - Provider: Automatic Transfer - Reason: Transfer to a Procedural area)1414 ([facility] Unhold - Provider: Automatic Transfer) No Frequency [...] BE BASED ON THE PRIMARY CLINICAL RECORDS. [facility]. provides no warranty or guarantee of the accuracy or completeness of information in this document.
[2024-08-29 07:34] LABS: Bilirubin Urine NEGATIVE (NEGATIVE); Blood Urine NEGATIVE (NEGATIVE); Clarity Urine CLEAR (CLEAR); Color Urine YELLOW (YELLOW); Glucose Urine UA NEGATIVE (NEGATIVE); Ketones Urine NEGATIVE (NEGATIVE); Leukocyte Esterase Urine NEGATIVE (NEGATIVE); Nitrite Urine NEGATIVE (NEGATIVE); Protein Urine NEGATIVE (NEG/TRACE); Specific Gravity Urine 1.015 (1.005-1.025); Urobilinogen Urine 0.2 EU/dL (0.2-1.0)
[2024-08-29 07:38] LABS: Urine Microscopic Indicated NO
[2024-08-29 07:49] LABS: Estimated Average Glucose 100 mg/dL; Glycohemoglobin A1C 5.1 % (4.5-6.2)
[2024-08-29 08:15] LABS: Prostate Specific Antigen Scrn 0.85 ng/mL (<=4.00)
[2024-08-29 08:24] LABS: Chol HDL Ratio 2.4; Cholesterol 138 mg/dL (<=200); HDL Cholesterol 58 mg/dL (40-60); LDL Cholesterol Calculated 64.2 mg/dL; Thyroid Stimulating Hormone 2.385 uIU/mL (0.358-3.740); Triglycerides 79 mg/dL (<=150); VLDL CHOLESTEROL 15.8 mg/dL
== END 2024-08-29 06:51 | disposition home or self-care (01) ==
LOC: LAB 06:53
PROVIDERS: PCP Nurse Practitioner; Visit Provider Nurse Practitioner
DX: R30.0 Dysuria (principal); Z12.5 Encounter for screening for malignant neoplasm of prostate
CPT/HCPCS: 36415; 80061; 81001; 81003; 83036; 84443; 87086; G0103

== ENCOUNTER 2024-08-29 06:56 | Outpatient (OUT) | payer MEDICARE, MEDICAID, SELFPAY ==
--- OUTSIDE RECORDS SUMMARY | 2024-08-29 07:05 | XMS_ITS | CCD ---
Author Organization [facility] ion [facility] Care Team Providers Care Stripper [employer] Name Role Phone Kiana Zuly Unavailable Unavailable [...] Unavailable AICHHOLZ, ZULY Primary Care Unavailable Aichholz [facility], Zuly Primary Care Provider Miguel [facility] [phone] Shirin [facility],PharmD, Angel Unavailable Unavailab makayla Leigh [facility],PharmD, Te Unavailable Unavai lable [facility], Zuly Primary Care Provider CRISTINA, DR BURCH Admitting Unavailable MISC, DR BURCH Consulting Unavailable AICHHOLZ, 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 ZULY Primary Care Unavailable MISC, DR BURCH Attending Unavailable MISC, DR BURCH Admitting Unavailable MISC, DR BURCH Consulting Unavailable AICHHOLZ, 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 ZULY Primary Care Unavailable MISC, DR BURCH Attending Unavailable ARCELIA PIZARRO Consulting Unavailable KE BURNHAM Attending Unavailable KE BURNHAM Admitting Unavailable BARBARA, DR MÓNICA Munoz Consulting Unavailable AICHHOLZ, 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 ZULY Primary Care Unavailable KE BURNHAM Consulting Unavailable MISC, DR BURCH Consulting Unavailable MISC, DR BURCH Attending Unavailable AICHHOLZ, 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 ZULY Primary Care Unavailable MISC, DR DOCTOR Admitting Unavailable MISC, DR DOCTOR Consulting Unavailable MISC, DR DOCTOR Attending Unavailable AICHHOLZ, 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 ZULY Primary Care Unavailable MISC, DR BURCH Admitting Unavailable MISC, DR DOCTOR Consulting Unavailable AICHHOLZ, 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 ZULY Primary Care Unavailable MISC, DR DOCTOR Admitting Unavailable MISC, DR DOCTOR Attending Unavailable MELINDA, DR GEORGE Munoz Consulting Unavailable MELINDA, DR GEORGE Munoz Attending Unavailable AICHHOLZ, 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 ZULY Primary Care Unavailable MELINDA, DR GEORGE Munoz Admitting Unavailable NAUN ., KE Consulting Unavailable MIRANDA, LYNDSAY Consulting Unavailable MELINDA, DR GEORGE Munoz Consulting Unavailable NAUN ., KE Attending Unavailable NAUN ., KE Admitting Unavailable AICHHOLZ, 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 ZULY Primary Care Unavailable NAUN ., KE Consulting Unavailable GIAN HERRING Consulting Unavailable AICHHOLZ, 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 ZULY Consulting Unavailable AICHHOLZ, 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 ZULY Attending Unavailable AICHHOLZ, 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 ZULY Admitting Unavailable AICHHOLZ, 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 ZULY Primary Care Unavailable MISC, DR BURCH Consulting Unavailable MISC, DOCTOR Admitting Unavailable MISC, DOCTOR Attending Unavailable AICHHOLZ, 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 ZULY Primary Care Unavailable MISC, DR DOCTOR Consulting Unavailable MISC, DR DOCTOR Attending Unavailable MISC, DR DOCTOR Admitting Unavailable AICHHOLZ, 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 ZULY Primary Care Unavailable MISC, DOCTOR Admitting Unavailable MISC, DR BURCH Consulting Unavailable MISC, DR DOCTOR Attending Unavailable AICHHOLZ, 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 ZULY Primary Care Unavailable MISC, DR DOCTOR Admitting Unavailable MISC, DR DOCTOR Consulting Unavailable AICHHOLZ, 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 ZULY Primary Care Unavailable MISC, DR DOCTOR Attending Unavailable MISC, DR DOCTOR Admitting Unavailable MISC, DR DOCTOR Consulting Unavailable AICHHOLZ, 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 ZULY Primary Care Unavailable MISC, DR DOCTOR Attending Unavailable AICHHOLZ, 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 ZULY Consulting Unavailable AICHHOLZ, 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 ZULY Attending Unavailable AICHHOLZ, 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 ZULY Admitting Unavailable AICHHOLZ, 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 ZULY Primary Care Unavailable DR MÓNICA JIMENEZ Consulting Unavailable Aichholz 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, Zuly Primary Care Provider Tran White DOs Tray Unavailable Aicholz [facility], Zuly Primary Care Provider Tran White DOs A Unavailable [phone] Momo Verdugo MD Primary Care Provider Aichholz ROB, Zuly Primary Care Provider MIGUEL CARDONA Attending Unavailable YEISON, STEVE S Attending Unavailable YEISON, [...] Primary Care Unavailable CANDIE ALMAGUER Attending Unavailable ATRA, KELVIN K Referring Unavailable AICHHOLZ, ZULY Primary [...] Propensity to adverse reactions to drug 9 [facility] (1 source) Shellfish Drug allergy (disorder) [...] 1 capsule by mouth once daily b wylwcul-N-pdbhp acid (NEPHROCAPS) 1 MG capsule Take 1 [...] ankle pain. 0 06/12/2020 06/12/2023 Discontinued lactulose 17341 mg powder for oral solution (19 sources) [...] 07/17/2018 Active take 2 tablets by mo [facility] three times daily at mealtime [...] 09-01-2030 Start: 08-26-2023 [facility] Sulfamethoxazole-trimethoprim 800-160 MG per [...] Start: 06-08-2023 take 1 capsule by mo [facility] once daily Tamsulosin HCl 0.4 [...] itraconazole Fax results to: Dr. White - [phone] Transplant [facility] - [phone] Each 09/10/2023 01/19/2024 Discontinued (Medication Reconciliation (suppress cancel msg)) Start: 09-10-2023 CUSTOM MEDICAT ION Labs to be obtained: 1- Tacrolimus level, trough - collect twice weekly until 09/24/23, then weekly until 10/08/23, them once every two weeks there after. 2- Itraconazole level - obtain once between 09/14-09/18. 3- Chem 6 - Obtain weekly while on itraconazole Fax results to: Dr. White - [phone] Transplant [facility] - [phone] Each 0 09/10/2023 Active Diatrizoate (1 [...] 05/20/2022 01/16/2023 Discontinued take 2 tablets by [facility] in the morning magnesium oxide (Mag-Ox) 400 MG tablet Take 2 tablets by mouth in the morning. 0 Active take 1 tablet by [facility] once daily magnesium oxide (MAG-OX) 400 [...] (ROXICODONE) tablet 10 mg polyethylene glycol 3350 22363 mg powder for oral solution (20 sources) [...] needed. 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 Normal [facility] Office Visiton 05-13-2024 Follow-up visit [id number] George Styles 1970 M Date Provider Department Center 05/13/2024 Júnior-MIGUEL CARDONA [facility] Family History Problem Relation Age of Onset Coronary artery disease Mother Coronary artery disease Father Family Status - Relation Status Age at Mother Father Level of Service:41265 DE OFFICE/OUTPATIENT ESTABLISHED LOW MDM 20 MIN Reason for Visit and Comments: Follow-up [166297] - Yearly follow up [facility] B-TYPE NATRIURETIC PEPTIDE ( BRAIN)on 02-26-2024 Interpretation and review of laboratory results Normal [facility] Natriuretic peptide B (Bld) [Mass/Vol] 72 pg/mL 0 - 100 pg/mL [facility] Natriuretic peptide B (Bld) [Mass/Vol] 72 pg/mL Normal 0-[address] [facility] Comment on above: Performed By: #### B TARIFF COMPILER ####[facility] (DEFAULT)[address] [place] [address] CHEM 6 (LYTES, BUN CREA)on 0 02-26-2024 Anion gap [Moles/Vol] 13 mmol/L 7 - 17 mmol/L [facility] Chloride [Moles/Vol] 107 mmol/L 98 - 10 8 mmol/L [facility] CO2 [Moles/Vol] 25 mmol/L 21 - 31 mmol/L [facility] Creatinine [Mass/Vol] 1.23 mg/dL 0.70 - 1.30 mg/dL [facility] eGFR, CKD-EPI, Male 71 - PINF [facility] Comment on above: Reported eGFR is bas ed on the CKD-EPI 2020 equation using creatinine, age, and sex. Potassium [Moles/Vol] 4.2 mmol/L 3.5 - 5.0 mmol/L [facility] Sodium [Moles/Vol] 141 mmol/L 135 - 145 mmol/L [facility] Urea nitrogen [Mass/Vol] 17 mg/dL 7 - 25 mg/dL [facility] Urea nitrogen/Creatinine [Mass ratio] 14 mg/mg [facility] Anion gap [Moles/Vol] 13 mmol/L Normal 7-[address] [facility] Comment on above: Performed By: #### C HM6 ####[facility] (DEFAULT)[address] [place] [address] Chloride [Moles/Vol] 107 mmol/L Normal 98-[address] [facility] Comment on above: Performed By: #### C HM6 ####[facility] (DEFAULT)[address] [place] [address] CO2 [Moles/Vol] 25 mmol/L Normal 21-31 [facility] Comment on above: Performed By: #### C HM6 ####[facility] (DEFAULT)[address] [place] [address] Creatinine [Mass/Vol] 1.23 mg/dL Normal 0.70-1.[address] [facility] Comment on above: Performed By: #### C HM6 ####U [facility] (DEFAULT)[address] [place] [address] GFR/1.73 sq M.predicted among non-blacks MDRD (S/P/Bld) [Vol rate/Area] 70 mL/min/{1.73_m2} Normal >=[address] [facility] Comment on above: Result Comment: Repo rted eGFR is based on the CKD-EPI 2020 equation using creatinine, age, and sex. Performed By: #### C HM6 ####[facility] (DEFAULT)[address] [place] [address] Potassium [Moles/Vol] 4.2 mmol/L Normal 3.5-5.[address] [facility] Comment on above: Performed By: #### C HM6 ####[facility] (DEFAULT)[address] [place] [address] Sodium [Moles/Vol] 141 mmol/L Normal 135-145 [facility] Comment on above: Performed By: #### C HM6 ####[facility] (DEFAULT)[address] [place] [address] Urea nitrogen [Mass/Vol] 17 mg/dL Normal 7-[address] [facility] Comment on above: Performed By: #### C HM6 ####[facility] (DEFAULT)[address] [place] [address] Urea nitrogen/Creatinine [Mass ratio] 14 mg/mg Normal [facility] Comment on above: Performed By: #### C 6 ####[facility] (DEFAULT)[address] [place] [address] CBC,PLATELETSon 01-23-2024 Erythrocyte distribution width (RBC) [Ratio] 14.2 % 10.9 - 14.3 % [facility] Hematocrit (Bld) [Volume fraction] 37.0 % Low 39.6 - 48.8 % [facility] Hemoglobin (Bld) [Mass/Vol] 12.0 g/dL Low 13.4 - 16.8 g/dL [facility] Interpretation and review of laboratory results Abnormal [facility] MCH (RBC) [Entitic mass] 28.6 pg 26.1 - 33.3 pg [facility] MCHC (RBC) [Mass/Vol] 32.4 g/dL 31.9 - 36.5 g/dL [facility] MCV (RBC) [Entitic vol] 88.1 fL 79.0 - 94.5 fL [facility] Platelet mean volume (Bld) [Entitic vol] 10.4 fL 8.7 - 12.3 fL [facility] Platelets (Bld) [#/Vol] 170 10*3/uL 146 - 337 K/uL [facility] RBC (Bld) [#/Vol] 4.20 10*6/uL Low [facility] WBC (Bld) [#/Vol] 3.70 10*3/uL Low 3.73 - 10. 10 K/uL [facility] Hematocrit (Bld) [Volume fraction] 37.0 % Low 39.6-48.[address] [facility] Comment on above: Performed By: #### H [facility] ####[facility] (DEFAULT)[address] [place] [address] Hemoglobin (Bld) [Mass/Vol] 12.0 g/dL Low 13.4-16.[address] [facility] Comment on above: Performed By: #### H EMO ####[facility] (DEFAULT)[address] [facility] [place] [address] MCV (RBC) [Entitic vol] 88.1 fL Normal 79.0-94.[address] [facility] Comment on above: Performed By: #### H EMOGC ####[facility] (DEFAULT)[address] [place] [place] [address] Mean Cell Hgb 28.6 pg Normal 26.1-33.[address] [facility] Comment on above: Performed By: #### H EMOGC ####[facility] (DEFAULT)[address] [place] [address] Mean Cell Hgb Conc 32.4 g/dL Normal 31.9-36.5 [facility] Comment on above: Performed By: #### H EMOGC ####[facility] (DEFAULT)[address] [place] [address] Platelet mean volume (Bld) [Entitic vol] 10.4 fL Normal 8.7-12.[address] [facility] Comment on above: Performed By: #### H EMOGC ####[facility] (DEFAULT)[address] [place] [address] Platelets (Bld) [#/Vol] 170 10*3/uL Normal 146-[address] [facility] Comment on above: Performed By: #### H EMOGC ####[facility] (DEFAULT)[address] [place] [address] RBC (Bld) [#/Vol] 4.20 10*6/uL Low 4.38-5.[address] [facility] Comment on above: Performed By: #### H EMOGC ####[facility] (DEFAULT)[address] [place] [address] RBC Distribution 14.2 % Normal 10.9-14.3 [facility] Comment on above: Performed By: #### H EMOGC ####[facility] (DEFAULT)[address] [place] [address] WBC (Bld) [#/Vol] 3.70 10*3/uL Low 3.73-10.[address] [facility] Comment on above: Performed By: #### H [facility] ####[facility] (DEFAULT)[address] [place] [address] CHEM 7 (LYTES,BUN,CREA,GLUC) on 01-23-2024 Anion gap [Moles/Vol] 14 mmol/L 7 - 17 mmol/L [facility] Chloride [Moles/Vol] 105 mmol/L 98 - 10 8 mmol/L [facility] CO2 [Moles/Vol] 25 mmol/L 21 - 31 mmol/L [facility] Creatinine [Mass/Vol] 1.32 mg/dL High 0.70 - 1.30 mg/dL [facility] eGFR, CKD-EPI, Male 65 - PINF [facility] Comment on above: Reported eGFR is bas ed on the CKD-EPI 2020 equation using creatinine, age, and sex. Glucose [Mass/Vol] 94 mg/dL 70 - 99 mg/dL [facility] Osmolality Calc [Osmolality] 296 [facility] Potassium [Moles/Vol] 3.8 mmol/L 3.5 - 5.0 mmol/L [facility] Sodium [Moles/Vol] 140 mmol/L 135 - 145 mmol/L [facility] Urea nitrogen [Mass/Vol] 23 mg/dL 7 - 25 mg/dL [facility] Urea nitrogen/Creatinine [Mass ratio] 17 mg/mg [facility] Anion gap [Moles/Vol] 14 mmol/L Normal 7-[address] [facility] Comment on above: Performed By: #### M NATHANIEL BLOOM, HFP ####[facility] (DEFAULT)[address] [place] [address] Chloride [Moles/Vol] 105 mmol/L Normal 98-[address] [facility] Comment on above: Performed By: #### NATHANIEL RAMÍREZ, HFP ####[facility] (DEFAULT)[address] [place] [address] CO2 [Moles/Vol] 25 mmol/L Normal 21-31 [facility] Comment on above: Performed By: #### NATHANIEL RAMÍREZ, HFP ####U [facility] (DEFAULT)[address] [place] [address] Creatinine [Mass/Vol] 1.32 mg/dL High 0.70-1.[address] [facility] Comment on above: Performed By: #### NATHANIEL RAMÍREZ, HFP ####U [facility] (DEFAULT)[address] [place] [address] GFR/1.73 sq M.predicted among non-blacks MDRD (S/P/Bld) [Vol rate/Area] 65 mL/min/{1.73_m2} Normal >=[address] [facility] Comment on above: Result Comment: Repo rted eGFR is based on the CKD-EPI 2020 equation using creatinine, age, and sex. Performed By: #### NATHANIEL RAMÍREZ, HFP ####[facility] (DEFAULT)[address] [place] [address] Glucose [Mass/Vol] 94 mg/dL Normal 70-99 [facility] Comment on above: Performed By: #### NATHANIEL RAMÍREZ, HFP ####[facility] (DEFAULT)[address] [place] [address] Osmolality [Osmolality] 296 mosm/kg Normal 278-[address] [facility] Comment on above: Performed By: #### NATHANIEL RAMÍREZ, HFP ####[facility] (DEFAULT)[address] [place] [address] Potassium [Moles/Vol] 3.8 mmol/L Normal 3.5-5.[address] [facility] Comment on above: Performed By: #### NATHANIEL RAMÍREZ, HFP ####[facility] (DEFAULT)[address] [place] [address] Sodium [Moles/Vol] 140 mmol/L Normal 135-145 [facility] Comment on above: Performed By: #### M NATHANIEL BLOOM, HFP ####[facility] (DEFAULT)[address] [place] [address] Urea nitrogen [Mass/Vol] 23 mg/dL Normal 7-[address] [facility] Comment on above: Performed By: #### NATHANIEL RAMÍREZ, HFP ####[facility] (DEFAULT)[address] [place] [address] Urea nitrogen/Creatinine [Mass ratio] 17 mg/mg Normal [facility] Comment on above: Performed By: #### NATHANIEL RAMÍREZ, HFP ####[facility] (DEFAULT)[address] [place] [address] GLUCOSE POCon 01-23-2024 Glucose [Mass/Vol] 88 mg/dL 70 - 99 mg/dL [facility] POC Sample Type CAPBL [facility] Test performed at ad dress of the patient encounter. [facility] Glucose [Mass/Vol] 191 mg/dL High 70 - 99 mg/dL [facility] Interpretation and review of laboratory results Abnormal [facility] POC Sample Type CAPBL [facility] Test performed at ad dress of the patient encounter. [facility] HEPATIC FUNCTION PANELon Albumin [Mass/Vol] 3.9 g/dL 3.5 - 5.0 g/dL [facility] ALP [Catalytic activity/Vol] 83 U/L 32 - 126 U/L [facility] ALT [Catalytic activity/Vol] 9 U/L Low 10 - 52 U/L [facility] AST [Catalytic activity/Vol] 17 U/L 10 - 39 U/L [facility] Bilirubin [Mass/Vol] 1.6 mg/dL High NINF - 1.5 mg/dL [facility] Bilirubin.direct [Mass/Vol] 0.4 mg/dL High NINF - 0.3 mg/dL [facility] Protein [Mass/Vol] 6.6 g/dL 6.4 - 8.3 g/dL [facility] Albumin [Mass/Vol] 3.9 g/dL Normal 3.5-5.0 [facility] Comment on above: Performed By: #### Rod BLOOM CHM7, HFP ####[facility] (DEFAULT)[address] [place] [address] ALP [Catalytic activity/Vol] 83 U/L Normal 32-[address] [facility] Comment on above: Performed By: #### TJ RAMÍREZ7, HFP ####[facility] (DEFAULT)[address] [place] [address] ALT [Catalytic activity/Vol] 9 U/L Low 10-[address] [facility] Comment on above: Performed By: #### Rod BLOOM CHM7, HFP ####[facility] (DEFAULT)[address] [place] [address] AST [Catalytic activity/Vol] 17 U/L Normal 10-[address] [facility] Comment on above: Performed By: #### Rod BLOOM CHM7, HFP ####[facility] (DEFAULT)[address] [place] [address] Bilirubin [Mass/Vol] 1.6 mg/dL High <1.[address] [facility] Comment on above: Performed By: #### Rod BLOOM CHM7, HFP ####[facility] (DEFAULT)[address] [place] [address] Bilirubin.indirect [Mass/Vol] 0.4 mg/dL High <0.[address] [facility] Comment on above: Performed By: #### Rod BLOOM CHM7, HFP ####[facility] (DEFAULT)[address] [place] [address] Protein [Mass/Vol] 6.6 g/dL Normal 6.4-8.3 [facility] Comment on above: Performed By: #### M TJ BLOOM7, HFP ####U [facility] (DEFAULT)[address] [place] [address] ITRACONAZOLE LEVELon 024 Hydroxyitraconazole [Mass/Vol] 7.6 mcg/mL [facility] Comment on above: REFERENCE VALUE No therapeutic range established; activity and serum concentration are similar to parent drug. ADDITIONAL INFORMATION This test was developed and its performance characteristics determined by [facility] in a manner consistent with CLIA requirements. This test has not been cleared or approved by the U.S. Food and Drug Administration. Test Performed by: [facility] [address] [place] [address] Heavy Duty Diesel Mechanic: Rosendo Bose M.D. Ph.D.; CLIA# [id number] Itraconazole [Mass/Vol] 6.0 mcg/mL [facility] Comment on above: REFERENCE VALUE >0.5 (localized infection), >1.0 (systemic infection) [facility] MAGNESIUMon 01-23-2024 Interpretation and review of laboratory results Normal [facility] Magnesium [Mass/Vol] 1.8 mg/dL 1.6 - 2 .6 mg/dL [facility] Magnesium [Mass/Vol] 1.8 mg/dL Normal 1.6-2.[address] [facility] Comment on above: Performed By: #### M TJ BLOOM7, HFP ####U [facility] (DEFAULT)[address] [place] [id number] No Panel Informationon 01-23 Interpretation and review of laboratory results Abnormal [facility] TACROLIMUS LEVEL, TROUGH (DE E DRUG LEVEL)on 01-23-2024 Interpretation and review of laboratory results Normal [facility] Tacrolimus (Bld) [Mass/Vol] 7.0 ng/mL Bone Marrow Transplant: 4.0-12.0, Therapeutic: 5.0-15.0 [facility] Method performed is a chemiluminescent microparticle immunoasssay on the [employer] i2000. The range is based on experience at [facility] and users should be aware that target concentrations vary widely depending on concomitant therapy, time post-transplant, and desired degree of immunosuppression. [facility] Tacrolimus, Trough 7.0 ng/mL Normal Bone Susana ow Transplant: 4.0-12.0, Therapeutic: 5.0-15.[address] [facility] Comment on above: Order Comment: Pleas e draw at specified interval PRIOR to dose. Do not hold dose to wait for level. Specimens batched twice per day, (M-F) and once per day weekendsMethod performed is a chemiluminescent microparticle immunoasssay on the [employer] i2000.The range is based on experience at [facility] and users should be aware that target concentrations vary widely depending on concomitant therapy, time post-transplant, and desired degree of immunosuppression. Performed By: #### T ACRO ####[facility] (DEFAULT)[address] [place] [address] CARDIAC RHYTHM (SCANNED)on 0 01-22-2024 [facility] CBC,PLATELETSon 01-22-2024 Erythrocyte distribution width (RBC) [Ratio] 14.1 % 10.9 - 14.3 % [facility] Hematocrit (Bld) [Volume fraction] 41.5 % 39.6 - 48.8 % [facility] Hemoglobin (Bld) [Mass/Vol] 13.3 g/dL Low 13.4 - 16.8 g/dL [facility] Interpretation and review of laboratory results Abnormal [facility] MCH (RBC) [Entitic mass] 27.8 pg 26.1 - 33.3 pg [facility] MCHC (RBC) [Mass/Vol] 32.0 g/dL 31.9 - 36.5 g/dL [facility] MCV (RBC) [Entitic vol] 86.8 fL 79.0 - 94.5 fL [facility] Platelet mean volume (Bld) [Entitic vol] 10.5 fL 8.7 - 12.3 fL [facility] Platelets (Bld) [#/Vol] 186 10*3/uL 146 - 337 K/uL [facility] RBC (Bld) [#/Vol] 4.78 10*6/uL [facility] WBC (Bld) [#/Vol] 3.74 10*3/uL 3.73 - 10. 10 K/uL [facility] Hematocrit (Bld) [Volume fraction] 41.5 % Normal 39.6-48.[address] [facility] Comment on above: Performed By: #### H [facility] ####[facility] (DEFAULT)[address] [place] [address] Hemoglobin (Bld) [Mass/Vol] 13.3 g/dL Low 13.4-16.[address] [facility] Comment on above: Performed By: #### H EMO ####[facility] (DEFAULT)[address] [place] [address] MCV (RBC) [Entitic vol] 86.8 fL Normal 79.0-94.[address] [facility] Comment on above: Performed By: #### H EMO ####[facility] (DEFAULT)[address] [place] [address] Mean Cell Hgb 27.8 pg Normal 26.1-33.[address] [facility] Comment on above: Performed By: #### H EMO ####[facility] (DEFAULT)[address] [place] [address] Mean Cell Hgb Conc 32.0 g/dL Normal 31.9-36.5 [facility] Comment on above: Performed By: #### H EMOGC ####[facility] (DEFAULT)[address] [place] [address] Platelet mean volume (Bld) [Entitic vol] 10.5 fL Normal 8.7-12.[address] [facility] Comment on above: Performed By: #### H EMO ####[facility] (DEFAULT)[address] [place] [address] Platelets (Bld) [#/Vol] 186 10*3/uL Normal 146-[address] [facility] Comment on above: Performed By: #### H EMOGC ####[facility] (DEFAULT)[address] [place] [address] RBC (Bld) [#/Vol] 4.78 10*6/uL Normal 4.38-5.[address] [facility] Comment on above: Performed By: #### H EMO ####[facility] (DEFAULT)[address] [place] [address] RBC Distribution 14.1 % Normal 10.9-14.3 [facility] Comment on above: Performed By: #### H EMOGC ####[facility] (DEFAULT)[address] [place] [address] WBC (Bld) [#/Vol] 3.74 10*3/uL Normal 3.73-10.[address] [facility] Comment on above: Performed By: #### H EMOGC ####[facility] (DEFAULT)[address] [place] [phone] CHEM 7 (LYTES,BUN,CREA,GLUC) on 01-22-2024 Anion gap [Moles/Vol] 13 mmol/L 7 - 17 mmol/L [facility] Chloride [Moles/Vol] 109 mmol/L High 98 - 10 8 mmol/L [facility] CO2 [Moles/Vol] 23 mmol/L 21 - 31 mmol/L [facility] Creatinine [Mass/Vol] 1.10 mg/dL 0.70 - 1.30 mg/dL [facility] eGFR, CKD-EPI, Male 81 - PINF [facility] Comment on above: Reported eGFR is bas ed on the CKD-EPI 2020 equation using creatinine, age, and sex. Glucose [Mass/Vol] 84 mg/dL 70 - 99 mg/dL [facility] Interpretation and review of laboratory results Abnormal [facility] Osmolality Calc [Osmolality] 295 [facility] Potassium [Moles/Vol] 4.0 mmol/L 3.5 - 5.0 mmol/L [facility] Sodium [Moles/Vol] 141 mmol/L 135 - 145 mmol/L [facility] Urea nitrogen [Mass/Vol] 16 mg/dL 7 - 25 mg/dL [facility] Urea nitrogen/Creatinine [Mass ratio] 15 mg/mg [facility] Anion gap [Moles/Vol] 13 mmol/L Normal 7-[address] [facility] Comment on above: Performed By: #### Rod BLOOM CHM7 ####[facility] (DEFAULT)[address] [place] [address] Chloride [Moles/Vol] 109 mmol/L High 98-[address] [facility] Comment on above: Performed By: #### Rod BLOOM CHM7 ####[facility] (DEFAULT)[address] [place] [address] CO2 [Moles/Vol] 23 mmol/L Normal 21-31 [facility] Comment on above: Performed By: #### Rod BLOOM CHM7 ####[facility] (DEFAULT)[address] [place] [address] Creatinine [Mass/Vol] 1.10 mg/dL Normal 0.70-1.[address] [facility] Comment on above: Performed By: #### Rod BLOOM CHM7 ####[facility] (DEFAULT)[address] [place] [address] GFR/1.73 sq M.predicted among non-blacks MDRD (S/P/Bld) [Vol rate/Area] 81 mL/min/{1.73_m2} Normal >=[address] [facility] Comment on above: Result Comment: Repo rted eGFR is based on the CKD-EPI 2020 equation using creatinine, age, and sex. Performed By: #### TJ RAMÍREZ7 ####[facility] (DEFAULT)[address] [place] [address] Glucose [Mass/Vol] 84 mg/dL Normal 70-99 [facility] Comment on above: Performed By: #### TJ RAMÍREZ7 ####[facility] (DEFAULT)[address] [place], [place] [address], [place] [address] Osmolality [Osmolality] 295 mosm/kg Normal 278-[address] [facility] Comment on above: Performed By: #### TJ RAMÍREZ7 ####[facility] (DEFAULT)[address] [place], [place] [address], [place] [address] Potassium [Moles/Vol] 4.0 mmol/L Normal 3.5-5.[address] [facility] Comment on above: Performed By: #### NATHANIEL RAMÍREZ ####[facility] (DEFAULT)[address] [place] [address] Sodium [Moles/Vol] 141 mmol/L Normal 135-145 [facility] Comment on above: Performed By: #### TJ RAMÍREZ7 ####[facility] (DEFAULT)[address] [place] [address] Urea nitrogen [Mass/Vol] 16 mg/dL Normal 7-[address] [facility] Comment on above: Performed By: #### TJ RAMÍREZ7 ####[facility] (DEFAULT)[address] [place] [address] Urea nitrogen/Creatinine [Mass ratio] 15 mg/mg Normal [facility] Comment on above: Performed By: #### TJ RAMÍREZ7 ####[facility] (DEFAULT)[address] [place] [phone] MAGNESIUMon 01-22-2024 Interpretation and review of laboratory results Normal [facility] Magnesium [Mass/Vol] 2.0 mg/dL 1.6 - 2 .6 mg/dL [facility] Magnesium [Mass/Vol] 2.0 mg/dL Normal 1.6-2.[address] [facility] Comment on above: Performed By: #### M NATHANIEL BLOOM ####[facility] (DEFAULT)[address] [place] [phone] No Panel Informationon 01-22 [facility] PT,INR,PTTon 01-22-2024 aPTT Coag (PPP) [Time] 29.2 s [facility] INR Coag (Bld) [Relative time] 1.1 {INR} 0.9 - 1.1 [facility] Interpretation and review of laboratory results Abnormal [facility] PT Coag (PPP) [Time] 14.3 s High [facility] aPTT Coag (Bld) [Time] 29.2 s Normal 24.0-34.[address] [facility] Comment on above: Performed By: #### P TPTT ####[facility] (DEFAULT)[address] [place] [address] INR Coag (PPP) [Relative time] 1.1 {INR} Normal 0.9-1.[address] [facility] Comment on above: Performed By: #### P TPTT ####[facility] (DEFAULT)[address] [place] [address] PT Coag (PPP) [Time] 14.3 s High 11.9-14.[address] [facility] Comment on above: Performed By: #### P TPTT ####[facility] (DEFAULT)[address] [place] [address] TACROLIMUS LEVEL, TROUGH (DE E DRUG LEVEL)Ordered By: Sheree Jensen on 01-22-2024 Interpretation and review of laboratory results Normal [facility] Tacrolimus (Bld) [Mass/Vol] 7.9 ng/mL Bone Marrow Transplant: 4.0-12.0, Therapeutic: 5.0-15.0 [facility] Method performed is a chemiluminescent microparticle immunoasssay on the [employer] i2000. The range is based on experience at [facility] and users should be aware that target concentrations vary widely depending on concomitant therapy, time post-transplant, and desired degree of immunosuppression. [facility] TACROLIMUS LEVEL, TROUGH (DE E DRUG LEVEL)on 01-22-2024 Tacrolimus, Trough 7.9 ng/mL Normal Bone Susana ow Transplant: 4.0-12.0, Therapeutic: 5.0-15.[address] [facility] Comment on above: Order Comment: Pleas e draw at specified interval PRIOR to dose. Do not hold dose to wait for level. Specimens batched twice per day, (M-) and once per day weekendsMethod performed is a chemiluminescent microparticle immunoasssay on the [employer] i2000.The range is based on experience at [facility] and users should be aware that target concentrations vary widely depending on concomitant therapy, time post-transplant, and desired degree of immunosuppression. Performed By: #### T ACRO ####[facility] (DEFAULT)[address] [place] [address] TYPE AND SCREENon 01-22-2024 ABO/RH(D) TYPE Positive [facility] ABO/RH(D) TYPE Positive Normal [facility] Comment on above: Performed By: #### X M ####[facility] (DEFAULT)[address] [place] [address] [place] Unspecified body regionOr dered By: Unassigned Pacs on 01-22-2024 [facility] Work Phone: [place] Unspecified body regionon 01-22-2024 Radiology Study observation (narrative) [facility] CBC,PLATELETSon 01-21-2024 Erythrocyte distribution width (RBC) [Ratio] 14.0 % 10.9 - 14.3 % [facility] Hematocrit (Bld) [Volume fraction] 39.4 % Low 39.6 - 48.8 % [facility] Hemoglobin (Bld) [Mass/Vol] 12.7 g/dL Low 13.4 - 16.8 g/dL [facility] Interpretation and review of laboratory results Abnormal [facility] MCH (RBC) [Entitic mass] 28.0 pg 26.1 - 33.3 pg [facility] MCHC (RBC) [Mass/Vol] 32.2 g/dL 31.9 - 36.5 g/dL [facility] MCV (RBC) [Entitic vol] 87.0 fL 79.0 - 94.5 fL [facility] Platelet mean volume (Bld) [Entitic vol] 10.2 fL 8.7 - 12.3 fL [facility] Platelets (Bld) [#/Vol] 157 10*3/uL 146 - 337 K/uL [facility] RBC (Bld) [#/Vol] 4.53 10*6/uL [facility] WBC (Bld) [#/Vol] 3.42 10*3/uL Low 3.73 - 10. 10 K/uL [facility] Hematocrit (Bld) [Volume fraction] 39.4 % Low 39.6-48.[address] [facility] Comment on above: Performed By: #### H [facility] ####[facility] (DEFAULT)[address] [place] [address] Hemoglobin (Bld) [Mass/Vol] 12.7 g/dL Low 13.4-16.[address] [facility] Comment on above: Performed By: #### H [facility] ####[facility] (DEFAULT)[address] [place] [address] MCV (RBC) [Entitic vol] 87.0 fL Normal 79.0-94.[address] [facility] Comment on above: Performed By: #### H [facility] ####[facility] (DEFAULT)[address] [place] [address] Mean Cell Hgb 28.0 pg Normal 26.1-33.[address] [facility] Comment on above: Performed By: #### H EMOGC ####[facility] (DEFAULT)[address] [place] [address] Mean Cell Hgb Conc 32.2 g/dL Normal 31.9-36.5 [facility] Comment on above: Performed By: #### H EMOGC ####[facility] (DEFAULT)[address] [facility] [place] [address] Platelet mean volume (Bld) [Entitic vol] 10.2 fL Normal 8.7-12.[address] [facility] Comment on above: Performed By: #### H EMOGC ####[facility] (DEFAULT)[address] [facility] [place] [address] Platelets (Bld) [#/Vol] 157 10*3/uL Normal 146-[address] [facility] Comment on above: Performed By: #### H EMOGC ####[facility] (DEFAULT)[address] [facility] [place] [address] RBC (Bld) [#/Vol] 4.53 10*6/uL Normal 4.38-5.[address] [facility] Comment on above: Performed By: #### H EMOGC ####[facility] (DEFAULT)[address] [place] [address] RBC Distribution 14.0 % Normal 10.9-14.3 [facility] Comment on above: Performed By: #### H EMOGC ####[facility] (DEFAULT)[address] [facility] [place] [address] WBC (Bld) [#/Vol] 3.42 10*3/uL Low 3.73-10.[address] [facility] Comment on above: Performed By: #### H EMOGC ####[facility] (DEFAULT)[address] [place] [phone] CHEM 7 (LYTES,BUN,CREA,GLUC) on 01-21-2024 Anion gap [Moles/Vol] 12 mmol/L 7 - 17 mmol/L [facility] Chloride [Moles/Vol] 107 mmol/L 98 - 10 8 [facility] CO[facility] [Moles/Vol] 26 mmol/L 21 - 31 mmol/L [facility] Creatinine [Mass/Vol] 1.11 mg/dL 0.70 - 1.30 mg/dL [facility] eGFR, CKD-EPI, Male 80 - PINF [facility] Comment on above: Reported eGFR is bas ed on the CKD-EPI 2020 equation using creatinine, age, and sex. Glucose [Mass/Vol] 93 mg/dL 70 - 99 mg/dL [facility] Osmolality Calc [Osmolality] 295 [facility] Potassium [Moles/Vol] 3.9 mmol/L 3.5 - 5.0 mmol/L [facility] Sodium [Moles/Vol] 141 mmol/L 135 - 145 mmol/L [facility] Urea nitrogen [Mass/Vol] 15 mg/dL 7 - 25 mg/dL [facility] Urea nitrogen/Creatinine [Mass ratio] 14 mg/mg [facility] Anion gap [Moles/Vol] 12 mmol/L Normal 7-[address] [facility] Comment on above: Performed By: #### NATHANIEL RAMÍREZ ####[facility] (DEFAULT)[address] [place] [address] Chloride [Moles/Vol] 107 mmol/L Normal 98-[address] [facility] Comment on above: Performed By: #### NATHANIEL RAMÍREZ ####[facility] (DEFAULT)[address] [place] [address] CO2 [Moles/Vol] 26 mmol/L Normal 21-31 [facility] Comment on above: Performed By: #### NATHANIEL RAMÍREZ ####[facility] (DEFAULT)[address] [place] [address] Creatinine [Mass/Vol] 1.11 mg/dL Normal 0.70-1.[address] [facility] Comment on above: Performed By: #### TJ RAMÍREZ7 ####[facility] (DEFAULT)[address] [place] [address] GFR/1.73 sq M.predicted among non-blacks MDRD (S/P/Bld) [Vol rate/Area] 80 mL/min/{1.73_m2} Normal >=[address] [facility] Comment on above: Result Comment: Repo rted eGFR is based on the CKD-EPI 2020 equation using creatinine, age, and sex. Performed By: #### TJ RAMÍREZ7 ####[facility] (DEFAULT)[address] [place] [address] Glucose [Mass/Vol] 93 mg/dL Normal 70-99 [facility] Comment on above: Performed By: #### NATHANIEL RAMÍREZ ####[facility] (DEFAULT)[address] [place] [address] Osmolality [Osmolality] 295 mosm/kg Normal 278-[address] [facility] Comment on above: Performed By: #### TJ RAMÍREZ7 ####[facility] (DEFAULT)[address] [place] [address] Potassium [Moles/Vol] 3.9 mmol/L Normal 3.5-5.[address] [facility] Comment on above: Performed By: #### Rod BLOOM CHM7 ####[facility] (DEFAULT)[address] [place] [address] Sodium [Moles/Vol] 141 mmol/L Normal 135-145 [facility] Comment on above: Performed By: #### Rod BLOOM CHM7 ####U [facility] (DEFAULT)[address] [place] [address] Urea nitrogen [Mass/Vol] 15 mg/dL Normal 7-[address] [facility] Comment on above: Performed By: #### M HELEN BLOOMM7 ####[facility] (DEFAULT)[address] [place] [address] Urea nitrogen/Creatinine [Mass ratio] 14 mg/mg Normal [facility] Comment on above: Performed By: #### M HELEN BLOOMM7 ####[facility] (DEFAULT)[address] [place] [address] Cardiac catheterization stud yOrdered By: Kelvin Donohue on 01-21-2024 Body surface area Derived from formula 2.08 m2 [facility] Work Phone: [facility] Work Phone: Cardiac catheterization stud yon 01-21-2024 [...] with fistula occlusion Kelvin Donohue MD, MPH [employer] Program[employer] of Internal Medicine. Section of Advanced Heart Failure and Transplantation Division of Cardiovascular Diseases [facility] [email or web address] INVASIVE CARDIOVASCULAR PROC EDUREon 01-21-2024 INVASIVE CARDIOVASCULAR PROCEDURE Normal [facility] MAGNESIUMon 01-21-2024 Interpretation and review of laboratory results Abnormal [facility] Magnesium [Mass/Vol] 1.5 mg/dL Low 1.6 - 2 .6 mg/dL [facility] Magnesium [Mass/Vol] 1.5 mg/dL Low 1.6-2.[address] [facility] Comment on above: Performed By: #### M MERLE CHM7 ####[facility] (DEFAULT)[address] [place] [address] No Panel Informationon 01-21 [facility] TACROLIMUS LEVEL, TROUGH (DE E DRUG LEVEL)on 01-21-2024 Interpretation and review of laboratory results Normal [facility] Tacrolimus (Bld) [Mass/Vol] 7.2 ng/mL Bone Marrow Transplant: 4.0-12.0, Therapeutic: 5.0-15.0 [facility] Method performed is a chemiluminescent microparticle immunoasssay on the [employer] i2000. The range is based on experience at [facility] and users should be aware that target concentrations vary widely depending on concomitant therapy, time post-transplant, and desired degree of immunosuppression. [facility] Tacrolimus, Trough 7.2 ng/mL Normal Bone Susana ow Transplant: 4.0-12.0, Therapeutic: 5.0-15.[address] [facility] Comment on above: Order Comment: Pleas e draw at specified interval PRIOR to dose. Do not hold dose to wait for level. Specimens batched twice per day, (M-) and once per day weekendsMethod performed is a chemiluminescent microparticle immunoasssay on the [employer] i2000.The range is based on experience at [facility] and users should be aware that target concentrations vary widely depending on concomitant therapy, time post-transplant, and desired degree of immunosuppression. Performed By: #### T DUKE ####[facility] (DEFAULT)[address] [place] [phone] CBC,PLATELETSon 01-20-2024 Erythrocyte distribution width (RBC) [Ratio] 13.8 % 10.9 - 14.3 % [facility] Hematocrit (Bld) [Volume fraction] 38.9 % Low 39.6 - 48.8 % [facility] Rehabilitation Hemoglobin (Bld) [Mass/Vol] 12.5 g/dL Low 13.4 - 16.8 g/dL [facility] Interpretation and review of laboratory results Abnormal [facility] MCH (RBC) [Entitic mass] 28.0 pg 26.1 - 33.3 pg [facility] MCHC (RBC) [Mass/Vol] 32.1 g/dL 31.9 - 36.5 g/dL [facility] MCV (RBC) [Entitic vol] 87.2 fL 79.0 - 94.5 fL [facility] Platelet mean volume (Bld) [Entitic vol] 10.2 fL 8.7 - 12.3 fL [facility] Platelets (Bld) [#/Vol] 166 10*3/uL 146 - 337 K/uL [facility] RBC (Bld) [#/Vol] 4.46 10*6/uL [facility] WBC (Bld) [#/Vol] 3.79 10*3/uL 3.73 - 10. 10 K/uL [facility] Hematocrit (Bld) [Volume fraction] 38.9 % Low 39.6-48.[address] [facility] Comment on above: Performed By: #### H [facility] [place] ####[facility] (DEFAULT)[address] [place] [address] Hemoglobin (Bld) [Mass/Vol] 12.5 g/dL Low 13.4-16.[address] [facility] Comment on above: Performed By: #### H [facility] [place] ####[facility] (DEFAULT)[address] [place] [address] MCV (RBC) [Entitic vol] 87.2 fL Normal 79.0-94.[address] [facility] Comment on above: Performed By: #### H [facility] [place] ####[facility] (DEFAULT)[address] [place] [address] Mean Cell Hgb 28.0 pg Normal 26.1-33.[address] [facility] Comment on above: Performed By: #### H EMOGC ####[facility] (DEFAULT)[address] [place] [address] Mean Cell Hgb Conc 32.1 g/dL Normal 31.9-36.5 [facility] Comment on above: Performed By: #### H EMOGC ####[facility] (DEFAULT)[address] [place] [address] Platelet mean volume (Bld) [Entitic vol] 10.2 fL Normal 8.7-12.[address] [facility] Comment on above: Performed By: #### H EMOGC ####[facility] (DEFAULT)[address] [place] [address] Platelets (Bld) [#/Vol] 166 10*3/uL Normal 146-[address] [facility] Comment on above: Performed By: #### H EMOGC ####[facility] (DEFAULT)[address] [place] [address] RBC (Bld) [#/Vol] 4.46 10*6/uL Normal 4.38-5.[address] [facility] Comment on above: Performed By: #### H EMOGC ####[facility] (DEFAULT)[address] [facility] [place] [address] RBC Distribution 13.8 % Normal 10.9-14.3 [facility] Comment on above: Performed By: #### H EMOGC ####[facility] (DEFAULT)[address] [place] [address] WBC (Bld) [#/Vol] 3.79 10*3/uL Normal 3.73-10.[address] [facility] Comment on above: Performed By: #### H EMOGC ####[facility] (DEFAULT)[address] [place] [address] CHEM 7 (LYTES,BUN,CREA,GLUC) on 01-20-2024 Anion gap [Moles/Vol] 12 mmol/L 7 - 17 mmol/L [facility] Chloride [Moles/Vol] 105 mmol/L 98 - 10 8 mmol/L [facility] CO2 [Moles/Vol] 28 mmol/L 21 - 31 mmol/L [facility] Creatinine [Mass/Vol] 1.12 mg/dL 0.70 - 1.30 mg/dL [facility] eGFR, CKD-EPI, Male 80 - PINF [facility] Comment on above: Reported eGFR is bas ed on the CKD-EPI 2020 equation using creatinine, age, and sex. Glucose [Mass/Vol] 88 mg/dL 70 - 99 mg/dL [facility] Osmolality Calc [Osmolality] 294 [facility] Potassium [Moles/Vol] 3.8 mmol/L 3.5 - 5.0 mmol/L [facility] Sodium [Moles/Vol] 141 mmol/L 135 - 145 mmol/L [facility] Urea nitrogen [Mass/Vol] 15 mg/dL 7 - 25 mg/dL [facility] Urea nitrogen/Creatinine [Mass ratio] 13 mg/mg [facility] Anion gap [Moles/Vol] 12 mmol/L Normal 7-[address] [facility] Comment on above: Performed By: #### TAVO RAMÍREZ, CHM7 ####[facility] (DEFAULT)[address] [place] [address] Chloride [Moles/Vol] 105 mmol/L Normal 98-[address] [facility] Comment on above: Performed By: #### TAVO RAMÍREZ, CHM7 ####[facility] (DEFAULT)[address] [place] [address] CO2 [Moles/Vol] 28 mmol/L Normal 21-31 [facility] Comment on above: Performed By: #### TAVO RAMÍREZ, CHM7 ####[facility] (DEFAULT)[address] [place] [address] Creatinine [Mass/Vol] 1.12 mg/dL Normal 0.70-1.[address] [facility] Comment on above: Performed By: #### TAVO RAMÍREZ CHM7 ####[facility] (DEFAULT)[address] [place] [address] GFR/1.73 sq M.predicted among non-blacks MDRD (S/P/Bld) [Vol rate/Area] 79 mL/min/{1.73_m2} Normal >=[address] [facility] Comment on above: Result Comment: Repo rted eGFR is based on the CKD-EPI 2020 equation using creatinine, age, and sex. Performed By: #### TAVO RAMÍREZ CHM7 ####Lucius [facility] (DEFAULT)[address] [facility] [place] [address] Glucose [Mass/Vol] 88 mg/dL Normal 70-99 [facility] Comment on above: Performed By: #### TAVO RAMÍREZ CHM7 ####[facility] (DEFAULT)[address] [facility] [place] [address] Osmolality [Osmolality] 294 mosm/kg Normal 278-[address] [facility] Comment on above: Performed By: #### TAVO RAMÍREZ, CHM7 ####Lucius [facility] (DEFAULT)[address] [place] [address] Potassium [Moles/Vol] 3.8 mmol/L Normal 3.5-5.[address] [facility] Comment on above: Performed By: #### TAVO RAMÍREZ, CHM7 ####U [facility] (DEFAULT)[address] [place] [address] Sodium [Moles/Vol] 141 mmol/L Normal 135-145 [facility] Comment on above: Performed By: #### TAVO RAMÍREZ, CHM7 ####U [facility] (DEFAULT)[address] [place] [address] Urea nitrogen [Mass/Vol] 15 mg/dL Normal 7-[address] [facility] Comment on above: Performed By: #### TAVO RAMÍREZ, CHM7 ####[facility] (DEFAULT)[address] [place] [address] Urea nitrogen/Creatinine [Mass ratio] 13 mg/mg Normal [facility] Comment on above: Performed By: #### M TAVO BLOOM, CHM7 ####[facility] (DEFAULT)[address] [place] [address] Cardiac catheterization stud yon 01-20-2024 [facility] Radiology Study observation (narrative) [facility] Radiology Study observation (narrative) [facility] EBV BY PCR, QUANTITATIVE,BLO ODOrdered By: Charlotte Jensen on 01-20-2024 EBV DNA ESTELITA+probe (Unsp spec) [#/Vol] NINF [facility] Interpretation and review of laboratory results Normal [facility] This test was perfor med using a real time PCR assay. The dynamic range for this assay is 1000-5,000,000 IU/mL. A result <1000 IU/mL does not rule out the presence of EBV DNA in quantities below the sensitivity of this assay. This test was developed and its performance characteristics determined by [facility]. It has not been cleared or approved by the FDA. The laboratory is regulated under CLIA as qualified to perform high-complexity testing. This test is used for clinical purposes. It should not be regarded as investigational or for research. [facility] HEPATIC FUNCTION PANELon Albumin [Mass/Vol] 3.7 g/dL 3.5 - 5.0 g/dL [facility] ALP [Catalytic activity/Vol] 73 U/L 32 - 126 U/L [facility] ALT [Catalytic activity/Vol] 12 U/L 10 - 52 U/L [facility] AST [Catalytic activity/Vol] 19 U/L 10 - 39 U/L [facility] Bilirubin [Mass/Vol] 2.1 mg/dL High NINF - 1.5 mg/dL [facility] Bilirubin.direct [Mass/Vol] 0.5 mg/dL High NINF - 0.3 mg/dL [facility] Interpretation and review of laboratory results Abnormal [facility] Protein [Mass/Vol] 6.1 g/dL Low 6.4 - 8.3 g/dL [facility] Albumin [Mass/Vol] 3.7 g/dL Normal 3.5-5.0 [facility] Comment on above: Performed By: #### TAVO RAMÍREZ, CHM7 ####[facility] (DEFAULT)[address] [place] [address] ALP [Catalytic activity/Vol] 73 U/L Normal 32-[address] [facility] Comment on above: Performed By: #### TAVO RAMÍREZ, CHM7 ####[facility] (DEFAULT)[address] [place] [address] ALT [Catalytic activity/Vol] 12 U/L Normal 10-[address] [facility] Comment on above: Performed By: #### TAVO RAMÍREZ, CHM7 ####[facility] (DEFAULT)[address] [place] [address] AST [Catalytic activity/Vol] 19 U/L Normal 10-[address] [facility] Comment on above: Performed By: #### TAVO RAMÍREZ, CHM7 ####[facility] (DEFAULT)[address] [place] [address] Bilirubin [Mass/Vol] 2.1 mg/dL High <1.[address] [facility] Comment on above: Performed By: #### TAVO RAMÍREZ, CHM7 ####[facility] (DEFAULT)[address] [place] [address] Bilirubin.indirect [Mass/Vol] 0.5 mg/dL High <0.[address] [facility] Comment on above: Performed By: #### TAVO RAMÍREZ, CHM7 ####[facility] (DEFAULT)[address] [place] [address] Protein [Mass/Vol] 6.1 g/dL Low 6.4-8.3 [facility] Comment on above: Performed By: #### Rod BLOOM, [facility], CHM7 ####[facility] (DEFAULT)[address] [address] ITRACONAZOLE LEVELon 024 Hydroxyitraconazole 7.6 mcg/mL Normal [facility] Comment on above: Order Comment: Pleas e draw level at specified interval PRIOR to dose. Result Comment: ---- REFERENCE VALUE No therapeutic range established; activity and serumconcentration are similar to parent drug. ADDITIONAL INFORMATION This test was developed and its performance characteristicsdetermined by [facility] in a manner consistent with CLIArequirements. This test has not been cleared or approved bythe U.S. Food and Drug Administration.Test Performed by:[address] Director: Rosendo Bose M.D. Ph.D.; CLIA# [id number] Performed By: #### Y ITCON ####U [facility] (DEFAULT)[address] [address] Itraconazole 6.0 mcg/mL Normal [facility] Comment on above: Order Comment: Pleas e draw level at specified interval PRIOR to dose. Result Comment: ---- REFERENCE VALUE-------------------------->0.5 (localized infection), >1.0 (systemic infection) Performed By: #### Y ITCON ####[facility] (DEFAULT)[address] [address] MAGNESIUMon 01-20-2024 Interpretation and review of laboratory results Normal [facility] Magnesium [Mass/Vol] 1.6 mg/dL 1.6 - 2 .6 mg/dL [facility] Magnesium [Mass/Vol] 1.6 mg/dL Normal 1.6-2.[address] [facility] Comment on above: Performed By: #### M GO, HFP, CHM7 ####[facility] (DEFAULT)[address] [place] [address] No Panel Informationon 01-20 [facility] POCT CO-OXIMETRYon Hemoglobin (Bld) [Mass/Vol] 12.8 g/dL Low 13.4 - 16.8 g/dL [facility] Interpretation and review of laboratory results Abnormal [facility] Oxyhemoglobin 69 % Low 94 - 98 % [facility] Ordering physician notified. Test performed at address of the patient encounter. [facility] Hemoglobin (Bld) [Mass/Vol] 13.3 g/dL Low 13.4 - 16.8 g/dL [facility] Interpretation and review of laboratory results Abnormal [facility] Oxyhemoglobin 69 % Low 94 - 98 % [facility] Ordering physician notified. Test performed at address of the patient encounter. [facility] PT,INR,PTTon 01-20-2024 aPTT Coag (PPP) [Time] 30.6 s [facility] INR Coag (Bld) [Relative time] 1.2 {INR} High 0.9 - 1.1 [facility] Interpretation and review of laboratory results Abnormal [facility] PT Coag (PPP) [Time] 15.5 s High [facility] aPTT Coag (Bld) [Time] 30.6 s Normal 24.0-34.[address] [facility] Comment on above: Performed By: #### P TPTT ####[facility] (DEFAULT)[address] [place] [address] INR Coag (PPP) [Relative time] 1.2 {INR} High 0.9-1.[address] [facility] Comment on above: Performed By: #### P TPTT ####[facility] (DEFAULT)[address] [place] [address] PT Coag (PPP) [Time] 15.5 s High 11.9-14.[address] [facility] Comment on above: Performed By: #### P TPTT ####[facility] (DEFAULT)[address] [place] [phone] TACROLIMUS LEVEL, TROUGH (DE E DRUG LEVEL)Ordered By: Yanira Marcum on 01-20-2024 Interpretation and review of laboratory results Normal [facility] Tacrolimus (Bld) [Mass/Vol] 7.7 ng/mL Bone Marrow Transplant: 4.0-12.0, Therapeutic: 5.0-15.0 [facility] Method performed is a chemiluminescent microparticle immunoasssay on the [employer] i2000. The range is based on experience at [facility] and users should be aware that target concentrations vary widely depending on concomitant therapy, time post-transplant, and desired degree of immunosuppression. [facility] TACROLIMUS LEVEL, TROUGH (DE E DRUG LEVEL)on 01-20-2024 Tacrolimus, Trough 7.7 ng/mL Normal Bone Susana ow Transplant: 4.0-12.0, Therapeutic: 5.0-15.[address] [facility] Comment on above: Order Comment: Pleas e draw at specified interval PRIOR to dose. Do not hold dose to wait for level. Specimens batched twice per day, (M-F) and once per day weekendsMethod performed is a chemiluminescent microparticle immunoasssay on the [employer] i2000.The range is based on experience at [facility] and users should be aware that target concentrations vary widely depending on concomitant therapy, time post-transplant, and desired degree of immunosuppression. Performed By: #### T ACRO ####[facility] (DEFAULT)[address] [place] [address] CBC,PLATELETSon 01-19-2024 Erythrocyte distribution width (RBC) [Ratio] 13.9 % 10.9 - 14.3 % [facility] Hematocrit (Bld) [Volume fraction] 37.5 % Low 39.6 - 48.8 % [facility] Hemoglobin (Bld) [Mass/Vol] 12.1 g/dL Low 13.4 - 16.8 g/dL [facility] Interpretation and review of laboratory results Abnormal [facility] MCH (RBC) [Entitic mass] 28.3 pg 26.1 - 33.3 pg [facility] MCHC (RBC) [Mass/Vol] 32.3 g/dL 31.9 - 36.5 g/dL [facility] MCV (RBC) [Entitic vol] 87.8 fL 79.0 - 94.5 fL [facility] Platelet mean volume (Bld) [Entitic vol] 10.4 fL 8.7 - 12.3 fL [facility] Platelets (Bld) [#/Vol] 163 10*3/uL 146 - 337 K/uL [facility] RBC (Bld) [#/Vol] 4.27 10*6/uL Low [facility] WBC (Bld) [#/Vol] 3.69 10*3/uL Low 3.73 - 10. 10 K/uL [facility] Hematocrit (Bld) [Volume fraction] 37.5 % Low 39.6-48.[address] [facility] Comment on above: Performed By: #### H [facility] ####[facility] (DEFAULT)[address] [place] [address] Hemoglobin (Bld) [Mass/Vol] 12.1 g/dL Low 13.4-16.[address] [facility] Comment on above: Performed By: #### H [facility] ####[facility] (DEFAULT)[address] [place] [address] MCV (RBC) [Entitic vol] 87.8 fL Normal 79.0-94.[address] [facility] Comment on above: Performed By: #### H EMOGC ####[facility] (DEFAULT)[address] [place] [address] Mean Cell Hgb 28.3 pg Normal 26.1-33.[address] [facility] Comment on above: Performed By: #### H EMOGC ####[facility] (DEFAULT)[address] [place] [address] Mean Cell Hgb Conc 32.3 g/dL Normal 31.9-36.5 [facility] Comment on above: Performed By: #### H EMOGC ####[facility] (DEFAULT)[address] [facility] [place] [address] Platelet mean volume (Bld) [Entitic vol] 10.4 fL Normal 8.7-12.[address] [facility] Comment on above: Performed By: #### H EMOGC ####[facility] (DEFAULT)[address] [place] [address] Platelets (Bld) [#/Vol] 163 10*3/uL Normal 146-[address] [facility] Comment on above: Performed By: #### H EMOGC ####[facility] (DEFAULT)[address] [place] [address] RBC (Bld) [#/Vol] 4.27 10*6/uL Low 4.38-5.[address] [facility] Comment on above: Performed By: #### H EMOGC ####[facility] (DEFAULT)[address] [place] [address] RBC Distribution 13.9 % Normal 10.9-14.3 [facility] Comment on above: Performed By: #### H EMOGC ####[facility] (DEFAULT)[address] [place] [address] WBC (Bld) [#/Vol] 3.69 10*3/uL Low 3.73-10.[address] [facility] Comment on above: Performed By: #### H EMOGC ####[facility] (DEFAULT)[address] [place] [address] CHEM 7 (LYTES,BUN,CREA,GLUC) on 01-19-2024 Anion gap [Moles/Vol] 14 mmol/L 7 - 17 mmol/L [facility] Chloride [Moles/Vol] 106 mmol/L 98 - 10 8 mmol/L [facility] CO2 [Moles/Vol] 24 mmol/L 21 - 31 mmol/L [facility] Creatinine [Mass/Vol] 1.13 mg/dL 0.70 - 1.30 mg/dL [facility] eGFR, CKD-EPI, Male 78 - PINF [facility] Comment on above: Reported eGFR is bas ed on the CKD-EPI 2020 equation using creatinine, age, and sex. Glucose [Mass/Vol] 86 mg/dL 70 - 99 mg/dL [facility] Osmolality Calc [Osmolality] 293 [facility] Potassium [Moles/Vol] 3.8 mmol/L 3.5 - 5.0 mmol/L [facility] Sodium [Moles/Vol] 140 mmol/L 135 - 145 mmol/L [facility] Urea nitrogen [Mass/Vol] 16 mg/dL 7 - 25 mg/dL [facility] Urea nitrogen/Creatinine [Mass ratio] 14 mg/mg [facility] Anion gap [Moles/Vol] 14 mmol/L Normal 7-[address] [facility] Comment on above: Performed By: #### NATHANIEL RAMÍREZ ####[facility] (DEFAULT)[address] [place] [address] Chloride [Moles/Vol] 106 mmol/L Normal 98-[address] [facility] Comment on above: Performed By: #### NATHANIEL RAMÍREZ ####[facility] (DEFAULT)[address] [place] [address] CO2 [Moles/Vol] 24 mmol/L Normal 21-31 [facility] Comment on above: Performed By: #### NATHANIEL RAMÍREZ ####U [facility] (DEFAULT)[address] [place] [address] Creatinine [Mass/Vol] 1.13 mg/dL Normal 0.70-1.[address] [facility] Comment on above: Performed By: #### Rod BLOOM CHM7 ####U [facility] (DEFAULT)[address] [place] [address] GFR/1.73 sq M.predicted among non-blacks MDRD (S/P/Bld) [Vol rate/Area] 78 mL/min/{1.73_m2} Normal >=[address] [facility] Comment on above: Result Comment: Repo rted eGFR is based on the CKD-EPI 2020 equation using creatinine, age, and sex. Performed By: #### Rod BLOOM CHM7 ####U [facility] (DEFAULT)[address] [place] [address] Glucose [Mass/Vol] 86 mg/dL Normal 70-99 [facility] Comment on above: Performed By: #### Rod BLOOM CHM7 ####U [facility] (DEFAULT)[address] [place] [address] Osmolality [Osmolality] 293 mosm/kg Normal 278-[address] [facility] Comment on above: Performed By: #### Rod BLOOM CHM7 ####[facility] (DEFAULT)[address] [place] [address] Potassium [Moles/Vol] 3.8 mmol/L Normal 3.5-5.[address] [facility] Comment on above: Performed By: #### Rod BLOOM CHM7 ####U [facility] (DEFAULT)[address] [place] [address] Sodium [Moles/Vol] 140 mmol/L Normal 135-145 [facility] Comment on above: Performed By: #### Rod BLOOM CHM7 ####[facility] (DEFAULT)[address] [place] [address] Urea nitrogen [Mass/Vol] 16 mg/dL Normal 7-[address] [facility] Comment on above: Performed By: #### Rod BLOOM CHM7 ####[facility] (DEFAULT)[address] [place] [address], [place] [address] Urea nitrogen/Creatinine [Mass ratio] 14 mg/mg Normal [facility] Comment on above: Performed By: #### Rod BLOOM CHM7 ####[facility] (DEFAULT)[address] [place] [id number] EBV BY PCR, QUANTITATIVE,BLO ODon 01-19-2024 Ebv By Pcr, Quant, Blood <1000 Normal <[address] [facility] Comment [...] Clinical Microbiology Laboratory at [facility]. It has not been cleared or approved by the FDA. The laboratory is regulated under CLIA as qualified to perform high-complexity testing. This test is used for clinical purposes. It should not be regarded as investigational or for research. Performed By: #### E BVPCR ####[facility] (DEFAULT)[address] [place] [id number] HISTOPLASMA AND BLASTOMYCES ANTIGEN, ENZYME IMMUNOASSAY, SERMon 01-19-2024 Histoplasma/Blastomy antonia Ag Result Not detected Not Detected [facility] Comment on above: No antigen from Hist oplasma or Blastomyces detected. False negative results may occur depending on extent of disease, and/or site of infection. Repeat testing on a new specimen if clinically indicated. Histoplasma/Blastomy antonia Ag Value Not detected ng/mL [facility] Comment on above: ADDITIONAL INFORMATION This test was developed and its performance characteristics determined by [facility] in a manner consistent with CLIA requirements. This test has not been cleared or approved by the U.S. Food and Drug Administration. Test Performed by: [facility] [address], [place] [address] Heavy Duty Diesel Mechanic: Rosendo Bose M.D. Ph.D.; CLIA# [id number] [facility] MAGNESIUMon 01-19-2024 Interpretation and review of laboratory results Normal [facility] Magnesium [Mass/Vol] 1.8 mg/dL 1.6 - 2 .6 mg/dL [facility] Magnesium [Mass/Vol] 1.8 mg/dL Normal 1.6-2.[address] [facility] Comment on above: Performed By: #### M [facility] ####[facility] (DEFAULT)[address] [place] [address] No Panel Informationon 01-19 [facility] TACROLIMUS LEVEL, TROUGH (DE E DRUG LEVEL)Ordered By: Raymundo Mehta on 01-19-2024 Interpretation and review of laboratory results Normal [facility] Tacrolimus (Bld) [Mass/Vol] 6.8 ng/mL Bone Marrow Transplant: 4.0-12.0, Therapeutic: 5.0-15.0 [facility] Method performed is a chemiluminescent microparticle immunoasssay on the [employer] i2000. The range is based on experience at [facility] and users should be aware that target concentrations vary widely depending on concomitant therapy, time post-transplant, and desired degree of immunosuppression. [facility] TACROLIMUS LEVEL, TROUGH (DE E DRUG LEVEL)on 01-19-2024 Tacrolimus, Trough 6.8 ng/mL Normal Bone Susana ow Transplant: 4.0-12.0, Therapeutic: 5.0-15.[address] [facility] Comment on above: Order Comment: Pleas e draw at specified interval PRIOR to dose. Do not hold dose to wait for level. Specimens batched twice per day, (M-F) and once per day weekendsMethod performed is a chemiluminescent microparticle immunoasssay on the [employer] i2000.The range is based on experience at [facility] and users should be aware that target concentrations vary widely depending on concomitant therapy, time post-transplant, and desired degree of immunosuppression. Performed By: #### T ACRO ####[facility] (DEFAULT)[address] [place] [address] US AV fistulaOrdered By: Diana Reyes on 01-19-2024 [facility] Work Phone: US AV fistulaon 01-19-2024 Radiology Study observation (narrative) [facility] AFP TUMOR MARKEROrdered By: Francisca Alaniz on 01-18-2024 AFP.tumor marker [Mass/Vol] ng/mL NINF - 8.1 ng/mL [facility] Comment on above: This test was perfor med on the [employer] Immunoassay platform by [employer] which is a two-site sandwich chemiluminescent immunoassay. It is important to note that assays using different manufacturers and/or methods may not be comparable. Interpretation and review of laboratory results Normal [facility] CBC,PLATELETSon 01-18-2024 Erythrocyte distribution width (RBC) [Ratio] 13.9 % 10.9 - 14.3 % [facility] Hematocrit (Bld) [Volume fraction] 38.4 % Low 39.6 - 48.8 % [facility] Hemoglobin (Bld) [Mass/Vol] 12.1 g/dL Low 13.4 - 16.8 g/dL [facility] Interpretation and review of laboratory results Abnormal [facility] MCH (RBC) [Entitic mass] 27.8 pg 26.1 - 33.3 pg [facility] MCHC (RBC) [Mass/Vol] 31.5 g/dL Low 31.9 - 36.5 g/dL [facility] MCV (RBC) [Entitic vol] 88.3 fL 79.0 - 94.5 fL [facility] Platelet mean volume (Bld) [Entitic vol] 10.4 fL 8.7 - 12.3 fL [facility] Platelets (Bld) [#/Vol] 183 10*3/uL 146 - 337 K/uL [facility] RBC (Bld) [#/Vol] 4.35 10*6/uL Low [facility] WBC (Bld) [#/Vol] 3.66 10*3/uL Low 3.73 - 10. 10 K/uL [facility] Hematocrit (Bld) [Volume fraction] 38.4 % Low 39.6-48.[address] [facility] Comment on above: Performed By: #### H EMOGC ####[facility] (DEFAULT)[address] [place] [address] Hemoglobin (Bld) [Mass/Vol] 12.1 g/dL Low 13.4-16.[address] [facility] Comment on above: Performed By: #### H EMOGC ####[facility] (DEFAULT)[address] [place] [address] MCV (RBC) [Entitic vol] 88.3 fL Normal 79.0-94.[address] [facility] Comment on above: Performed By: #### H EMOGC ####[facility] (DEFAULT)[address] [place] [address] Mean Cell Hgb 27.8 pg Normal 26.1-33.[address] [facility] Comment on above: Performed By: #### H EMOGC ####[facility] (DEFAULT)[address] [place] [address] Mean Cell Hgb Conc 31.5 g/dL Low 31.9-36.5 [facility] Comment on above: Performed By: #### H EMOGC ####[facility] (DEFAULT)[address] [place] [address] Platelet mean volume (Bld) [Entitic vol] 10.4 fL Normal 8.7-12.[address] [facility] Comment on above: Performed By: #### H EMOGC ####[facility] (DEFAULT)[address] [place] [address] Platelets (Bld) [#/Vol] 183 10*3/uL Normal 146-[address] [facility] Comment on above: Performed By: #### H [facility] ####[facility] (DEFAULT)[address] [place] [address] RBC (Bld) [#/Vol] 4.35 10*6/uL Low 4.38-5.[address] [facility] Comment on above: Performed By: #### H [facility] ####[facility] (DEFAULT)[address] [place] [address] RBC Distribution 13.9 % Normal 10.9-14.3 [facility] Comment on above: Performed By: #### H [facility] ####[facility] (DEFAULT)[address] [place] [address] WBC (Bld) [#/Vol] 3.66 10*3/uL Low 3.73-10.[address] [facility] Comment on above: Performed By: #### H [facility] ####[facility] (DEFAULT)[address] [place] [address]289 CHEM 7 (LYTES,BUN,CREA,GLUC) on 01-18-2024 Anion gap [Moles/Vol] 11 mmol/L 7 - 17 mmol/L [facility] Chloride [Moles/Vol] 108 mmol/L 98 - 10 8 mmol/L [facility] CO2 [Moles/Vol] 26 mmol/L 21 - 31 mmol/L [facility] Creatinine [Mass/Vol] 1.00 mg/dL 0.70 - 1.30 mg/dL [facility] eGFR, CKD-EPI, Male - PINF [facility] Comment on above: Reported eGFR is bas ed on the CKD-EPI 2020 equation using creatinine, age, and sex. Glucose [Mass/Vol] 89 mg/dL 70 - 99 mg/dL [facility] Osmolality Calc [Osmolality] 295 [facility] Potassium [Moles/Vol] 3.9 mmol/L 3.5 - 5.0 mmol/L [facility] Sodium [Moles/Vol] 141 mmol/L 135 - 145 mmol/L [facility] Urea nitrogen [Mass/Vol] 16 mg/dL 7 - 25 mg/dL [facility] Urea nitrogen/Creatinine [Mass ratio] 16 mg/mg [facility] Anion gap [Moles/Vol] 11 mmol/L Normal 7-[address] [facility] Comment on above: Performed By: #### M GO, CHM7, HFP, TSHQR ####[facility] (DEFAULT)[address] [place] [address] Chloride [Moles/Vol] 108 mmol/L Normal 98-[address] [facility] Comment on above: Performed By: #### M GO, CHM7, HFP, TSHQR ####U [facility] (DEFAULT)[address] [place] [address] CO2 [Moles/Vol] 26 mmol/L Normal 21-31 [facility] Comment on above: Performed By: #### M GO, CHM7, HFP, TSHQR ####[facility] (DEFAULT)[address] [place] [address] Creatinine [Mass/Vol] 1.00 mg/dL Normal 0.70-1.[address] [facility] Comment on above: Performed By: #### M GO, CHM7, HFP, TSHQR ####[facility] (DEFAULT)[address] [place] [address] eGFR, CKD-EPI, Male > Normal >=[address] [facility] Comment on above: Result Comment: Repo rted eGFR is based on the CKD-EPI 2020 equation using creatinine, age, and sex. Performed By: #### M GO, CHM7, HFP, TSHQR ####U [facility] (DEFAULT)[address] [place] [address] Glucose [Mass/Vol] 89 mg/dL Normal 70-99 [facility] Comment on above: Performed By: #### M GO, CHM7, HFP, TSHQR ####[facility] (DEFAULT)[address] [place] [address] Osmolality [Osmolality] 295 mosm/kg Normal 278-[address] [facility] Comment on above: Performed By: #### M GO, CHM7, HFP, TSHQR ####[facility] (DEFAULT)[address] [place] [address] Potassium [Moles/Vol] 3.9 mmol/L Normal 3.5-5.[address] [facility] Comment on above: Performed By: #### M GO, CHM7, HFP, TSHQR ####[facility] (DEFAULT)[address] [place] [address] Sodium [Moles/Vol] 141 mmol/L Normal 135-145 [facility] Comment on above: Performed By: #### M GO, CHM7, HFP, TSHQR ####[facility] (DEFAULT)[address] [place] [address] Urea nitrogen [Mass/Vol] 16 mg/dL Normal 7-[address] [facility] Comment on above: Performed By: #### M GO, CHM7, HFP, TSHQR ####[facility] (DEFAULT)[address] [place] [address] Urea nitrogen/Creatinine [Mass ratio] 16 mg/mg Normal [facility] Comment on above: Performed By: #### M GO, CHM7, HFP, TSHQR ####[facility] (DEFAULT)[address] [place] [address] Cardiac echo study Procedure Ordered By: Gian Carlos on 01-18-2024 Ao ASC index 1.63 cm/m2 [facility] Work Phone: Ao peak meliton 1.46 m/s [facility] Work Phone: Ao SOV index 1.56 cm/m2 [facility] Work Phone: Ao STJ index 1.25 cm[facility]o VTI 35.74 [facility] Work Phone: [phone] [facility]: AV LVOT peak gradient 4 mmHg [facility] Phone: [phone] [facility]: [phone] [facility] peak gradient 9 [facility]HG [facility] Work [facility]: [phone] AV valve area 3.09 cm2 [facility] Work Phone: AV Velocity Ratio 0.73 [facility] Work Phone: [phone] VEGA (continuity Vmax) 3.01 cm2 [facility] Work Phone: [phone] VEGA (continuity VTI) 3.09 cm2 [facility] Work Phone: [phone] VEGA index (continuity Vmax) 1.45 m/s [facility] Work Phone: VEGA index (continuity VTI) 1.49 cm2/m2 [facility] Work Phone: [phone] Avg e' pk meliton 0.07 m/s [facility] Work Phone: [phone] Avg E/e' ratio 19.45 [facility] Work Phone: Body surface area Derived from formula 2.08 m2 [facility] Work Phone: BP EF 62 % [facility] Work Phone: DI (Vmax) 0.73 [facility] Work Phone: DI (VTI) 0.74 m/2 [facility] Work Phone: E wave decelartion time 180.38 msec [facility] Work Phone: e' lateral pk meliton 0.0789 m/s [facility] Work Phone: e' lateral pk meliton 0.08 m/s [facility] Work Phone: e' septal pk meliton 0.0653 m/s [facility] Work Phone: e' septal pk meliton 0.07 m/s [facility] Work Phone: E/A ratio 2.67 [facility] Work Phone: E/e' lateral ratio 17.62 [facility] Work Phone: E/e' septal ratio 21.29 [facility] Work Phone: EF SP 2CH 66 [facility] Work Phone: EF SP 4CH 58 [facility] Work Phone: FS 28 % 28 - 44 % [facility] Work Phone: IVC ostium 2.30 cm [facility] Work Phone: IVS 1.11 cm [facility] Work Phone: LA AREA 2CH 24.36 cm2 [facility] Work Phone: LA area 4CH 20.36 cm2 [facility] Work Phone: LA ESV BP (MOD) 64 mL [facility] Work Phone: LA ESV BP (MOD) index 31 mL/m2 [facility] Work Phone: LA ESV SP 2CH (MOD) 76 mL [facility] Work Phone: [phone] LA ESV SP 4CH (MOD) 53 mL [facility] Work Phone: [phone] LV EDV BP 180 [facility] Work Phone: [phone] LV EDV SP 2CH 190 mL [facility] Work Phone: [phone] LV EDV SP 4CH 166 mL [facility] Work Phone: [phone] LV ESV BP 69 mL [facility] Work Phone: LV ESV SP 2CH 65 mL [facility] Work Phone: LV ESV SP 4CH 70 mL [facility] Work Phone: LV mass 254.73 g [facility] Work Phone: LV Mass Index 122.5 g/m2 [facility] Work Phone: LV RWT 0.42 [facility] Work Phone: LV stroke volume BP (ml) 111 [facility] Work Phone: [phone] LV stroke volume index BP 53.37 mL/m2 [facility] Work Phone: LVIDD 5.53 cm [facility] Work Phone: LVIDS 3.97 cm [facility] Work Phone: LVOT area 4.15 cm2 [facility] Work Phone: LVOT diameter 2.30 cm [facility] Work Phone: LVOT peak meliton 1.06 m/s [facility] Work Phone: LVOT peak VTI 26.61 cm [facility] Work Phone: LVOT stroke volume 111 cm3 [facility] Work Phone: LVOT stroke volume index 53.13 ml/m2 [facility] Work Phone: Mr max meliton 4.21 m/s [facility] Work Phone: MR VTI 134.50 cm [facility] Work Phone: MV mean gradient 3 mmHg [facility] Work Phone: MV peak gradient 11 mmHg [facility] Work Phone: MV pk A meliton 0.52 m/s [facility] Work Phone: MV pk E meliton 1.39 m/s [facility] Work Phone: MV stenosis pressure 1/2 time 58.56 ms [facility] Work Phone: MV valve area by continuity eq 2.93 cm2 [facility] Work Phone: MV valve area p 1/2 method 3.76 cm2 [facility] Work Phone: MV VTI 37.70 cm [facility] Work Phone: MVA (continuity VTI) 2.92 cm [facility] Work Phone: [facility] AV VTI RATIO PRE STRESS 0.74 [facility] Work Phone: [facility] ECHO LV BIPLANE SYSTOLIC VOLUME INDEX 33.17 mL/m2 [facility] Work Phone: [facility] ECHO LV BP DIASTOLIC VOLUME INDEX 86.54 mL/m2 [facility] Work Phone: [facility] ECHO MR PEAK GRADIENT 70.94 mmHg [facility] Work Phone: PW 1.16 cm [facility] Work Phone: RA area 4CH (MOD) 14.50 cm2 [facility] Work [facility]: RA vol index 4CH (MOD) 18.27 mL/m2 [facility] Work Phone: Right atrium volume 4 chamber method of disks 38 mL [facility] Work Phone: RV Area diastolic 33.20 cm2 [facility] Work Phone: RV Area systolic 21.30 cm2 [facility] Work Phone: RV basal diam 4.52 cm [facility] Work Phone: RV Fractional area change 35.8 % [facility] Work Phone: RV long diam 8.96 cm [facility] Work Phone: RV mid diam 3.70 cm [facility] Work Phone: RV S' 22.01 cm/s [facility] Work Phone: RVOT peak gradient 4 mmHg [facility] Work Phone: RVOT peak meliton 0.96 m/s [facility] Work Phone: RVOT peak VTI 20.86 cm [facility] Work Phone: Sinus 3.24 cm [facility] Work Phone: STJ 2.61 cm [facility] Work Phone: Stroke Volume 111 cm/mL [facility] Work Phone: Stroke volume index 53 [facility] Work Phone: TAPSE 2.19 cm [facility] Work Phone: [facility] Work Phone: Cardiac echo study Procedure on [...] echocardiography study was performed. Imaging system used: [employer]. Indications Indications for study: shortness of breath. [facility] Radiology Study observation (narrative) [facility] HEPATIC FUNCTION PANELon Albumin [Mass/Vol] 3.5 g/dL 3.5 - 5.0 g/dL [facility] ALP [Catalytic activity/Vol] 70 U/L 32 - 126 U/L [facility] ALT [Catalytic activity/Vol] 8 U/L Low 10 - 52 U/L [facility] AST [Catalytic activity/Vol] 20 U/L 10 - 39 U/L [facility] Bilirubin [Mass/Vol] 1.7 mg/dL High NINF - 1.5 mg/dL [facility] Bilirubin.direct [Mass/Vol] 0.4 mg/dL High NINF - 0.3 mg/dL [facility] Protein [Mass/Vol] 6.0 g/dL Low 6.4 - 8.3 g/dL [facility] Albumin [Mass/Vol] 3.5 g/dL Normal 3.5-5.0 [facility] Comment on above: Performed By: #### M GO, CHM7, HFP, TSHQR ####[facility] (DEFAULT)[address] [place] [address] ALP [Catalytic activity/Vol] 70 U/L Normal 32-[address] [facility] Comment on above: Performed By: #### M GO, CHM7, HFP, TSHQR ####[facility] (DEFAULT)[address] [place] [address] ALT [Catalytic activity/Vol] 8 U/L Low 10-[address] [facility] Comment on above: Performed By: #### M GO, CHM7, HFP, TSHQR ####[facility] (DEFAULT)[address] [place] [address] AST [Catalytic activity/Vol] 20 U/L Normal 10-[address] [facility] Comment on above: Performed By: #### M GO, CHM7, HFP, TSHQR ####[facility] (DEFAULT)[address] [place] [address] Bilirubin [Mass/Vol] 1.7 mg/dL High <1.[address] [facility] Comment on above: Performed By: #### M GO, CHM7, HFP, TSHQR ####[facility] (DEFAULT)[address] [place] [address] Bilirubin.indirect [Mass/Vol] 0.4 mg/dL High <0.[address] [facility] Comment on above: Performed By: #### M NATHANIEL BLOOM, TAVO, TSHQR ####[facility] (DEFAULT)[address] [place] [address] Protein [Mass/Vol] 6.0 g/dL Low 6.4-8.3 [facility] Comment on above: Performed By: #### M NATHANIEL BLOOM, TAVO, TSHQR ####[facility] (DEFAULT)[address] [place] [address] MAGNESIUMon 01-18-2024 Magnesium [Mass/Vol] 1.5 mg/dL Low 1.6 - 2 .6 mg/dL [facility] Magnesium [Mass/Vol] 1.5 mg/dL Low 1.6-2.[address] [facility] Comment on above: Performed By: #### M NATHANIEL BLOOM, TAVO, TSHQR ####[facility] (DEFAULT)[address] [place] [address] No Panel Informationon 01-18 Interpretation and review of laboratory results Abnormal [facility] PT,INR,PTTon 01-18-2024 aPTT Coag (PPP) [Time] 30.0 s [facility] INR Coag (Bld) [Relative time] 1.1 {INR} 0.9 - 1.1 [facility] Interpretation and review of laboratory results Abnormal [facility] PT Coag (PPP) [Time] 14.5 s High [facility] aPTT Coag (Bld) [Time] 30.0 s Normal 24.0-34.[address] [facility] Comment on above: Performed By: #### P TPTT ####[facility] (DEFAULT)[address] [place] [address] INR Coag (PPP) [Relative time] 1.1 {INR} Normal 0.9-1.[address] [facility] Comment on above: Performed By: #### P TPTT ####[facility] (DEFAULT)[address] [place] [id number] PT Coag (PPP) [Time] 14.5 s High 11.9-14.[address] [facility] Comment on above: Performed By: #### P TPTT ####[facility] (DEFAULT)[address] [place] [address] TSH W/FT4 REFLEXon 4 Interpretation and review of laboratory results Normal [facility] TSH Qn 2.660 m[IU]/L [facility] TSH 2.660 uIU/mL Normal 0.550-4.[address] [facility] Comment on above: Performed By: #### M GO, CHM7, HFP, TSHQR ####[facility] (DEFAULT)[address] [place] [address] AFP TUMOR MARKERon 4 AFP Tumor Marker <2.2 Normal <8.1 [facility] Comment on above: Result Comment: This test was performed on the [employer] Immunoassay platform by [employer] which is a two-site sandwich chemiluminescent immunoassay. It is important to note that assays using different manufacturers and/or methods may not be comparable. Performed By: #### A FPTMR ####[facility] (DEFAULT)[address] [place] [address] DARYL AURIS SCREEN BY PCRO rdered By: Mynor Alejandro on 01-17-2024 Daryl auris Screen by PCR Not detected Not Detected [facility] Interpretation and review of laboratory results Normal [facility] This test was perfor med using a real-time PCR assay. This test was developed, and its performance characteristics determined by [facility] at [facility]. It has not been cleared or approved by the FDA. The laboratory is regulated under CLIA as qualified to perform high-complexity testing. This test is used for clinical purposes. It should not be regarded as investigational or for research. [facility] CBC,PLATELETSon 01-17-2024 Erythrocyte distribution width (RBC) [Ratio] 14.0 % 10.9 - 14.3 % [facility] Hematocrit (Bld) [Volume fraction] 37.2 % Low 39.6 - 48.8 % [facility] Hemoglobin (Bld) [Mass/Vol] 12.0 g/dL Low 13.4 - 16.8 g/dL [facility] Interpretation and review of laboratory results Abnormal [facility] MCH (RBC) [Entitic mass] 27.9 pg 26.1 - 33.3 pg [facility] MCHC (RBC) [Mass/Vol] 32.3 g/dL 31.9 - 36.5 g/dL [facility] MCV (RBC) [Entitic vol] 86.5 fL 79.0 - 94.5 fL [facility] Platelet mean volume (Bld) [Entitic vol] 10.5 fL 8.7 - 12.3 fL [facility] Platelets (Bld) [#/Vol] 159 10*3/uL 146 - 337 K/uL [facility] RBC (Bld) [#/Vol] 4.30 10*6/uL Low [facility] WBC (Bld) [#/Vol] 3.69 10*3/uL Low 3.73 - 10. 10 K/uL [facility] Hematocrit (Bld) [Volume fraction] 37.2 % Low 39.6-48.[address] [facility] Comment on above: Performed By: #### H [facility] ####[facility] (DEFAULT)[address] [place] [phone] Hemoglobin (Bld) [Mass/Vol] 12.0 g/dL Low 13.4-16.[address] [facility] Comment on above: Performed By: #### H [facility] ####[facility] (DEFAULT)[address] [place] [address] MCV (RBC) [Entitic vol] 86.5 fL Normal 79.0-94.[address] [facility] Comment on above: Performed By: #### H EMOGC ####[facility] (DEFAULT)[address] [place] [address] Mean Cell Hgb 27.9 pg Normal 26.1-33.[address] [facility] Comment on above: Performed By: #### H EMOGC ####[facility] (DEFAULT)[address] [place] [address] Mean Cell Hgb Conc 32.3 g/dL Normal 31.9-36.5 [facility] Comment on above: Performed By: #### H EMOGC ####[facility] (DEFAULT)[address] [place] [address] Platelet mean volume (Bld) [Entitic vol] 10.5 fL Normal 8.7-12.[address] [facility] Comment on above: Performed By: #### H EMOGC ####[facility] (DEFAULT)[address] [place] [address] Platelets (Bld) [#/Vol] 159 10*3/uL Normal 146-[address] [facility] Comment on above: Performed By: #### H EMOGC ####[facility] (DEFAULT)[address] [place] [address] RBC (Bld) [#/Vol] 4.30 10*6/uL Low 4.38-5.[address] [facility] Comment on above: Performed By: #### H EMOGC ####[facility] (DEFAULT)[address] [place] [address] RBC Distribution 14.0 % Normal 10.9-14.3 [facility] Comment on above: Performed By: #### H EMOGC ####[facility] (DEFAULT)[address] [place] [address] WBC (Bld) [#/Vol] 3.69 10*3/uL Low 3.73-10.[address] [facility] Comment on above: Performed By: #### H [facility] ####[facility] (DEFAULT)[address] [place] [address] CHEM 7 (LYTES,BUN,CREA,GLUC) on 01-17-2024 Anion gap [Moles/Vol] 13 mmol/L 7 - 17 mmol/L [facility] Chloride [Moles/Vol] 109 mmol/L High 98 - 10 8 mmol/L [facility] CO2 [Moles/Vol] 21 mmol/L 21 - 31 mmol/L [facility] Creatinine [Mass/Vol] 1.04 mg/dL 0.70 - 1.30 mg/dL [facility] eGFR, CKD-EPI, Male 86 - PINF [facility] Comment on above: Reported eGFR is bas ed on the CKD-EPI 2020 equation using creatinine, age, and sex. Glucose [Mass/Vol] 82 mg/dL 70 - 99 mg/dL [facility] Osmolality Calc [Osmolality] 292 [facility] Potassium [Moles/Vol] 4.4 mmol/L 3.5 - 5.0 mmol/L [facility] Sodium [Moles/Vol] 139 mmol/L 135 - 145 mmol/L [facility] Urea nitrogen [Mass/Vol] 17 mg/dL 7 - 25 mg/dL [facility] Urea nitrogen/Creatinine [Mass ratio] 16 mg/mg [facility] Anion gap [Moles/Vol] 13 mmol/L Normal 7-[address] [facility] Comment on above: Performed By: #### C HM7, HFP, MGO ####[facility] (DEFAULT)[address] [place] [address] Chloride [Moles/Vol] 109 mmol/L High 98-[address] [facility] Comment on above: Performed By: #### C HM7, HFP, MGO ####[facility] (DEFAULT)[address] [place] [address] CO2 [Moles/Vol] 21 mmol/L Normal 21-31 [facility] Comment on above: Performed By: #### TAVO GONG, MGO ####[facility] (DEFAULT)[address] [place] [address] Creatinine [Mass/Vol] 1.04 mg/dL Normal 0.70-1.[address] [facility] Comment on above: Performed By: #### C JASMYNE, TAVO, MGO ####[facility] (DEFAULT)[address] [place] [address] GFR/1.73 sq M.predicted among non-blacks MDRD (S/P/Bld) [Vol rate/Area] 86 mL/min/{1.73_m2} Normal >=[address] [facility] Comment on above: Result Comment: Repo rted eGFR is based on the CKD-EPI 2020 equation using creatinine, age, and sex. Performed By: #### C JASMYNE, TAVO, MGO ####[facility] (DEFAULT)[address] [place] [address] Glucose [Mass/Vol] 82 mg/dL Normal 70-99 [facility] Comment on above: Performed By: #### Chinedu MEDLEY, HFP, MGO ####[facility] (DEFAULT)[address] [place] [address] Osmolality [Osmolality] 292 mosm/kg Normal 278-[address] [facility] Comment on above: Performed By: #### C HMJessica, HFP, MGO ####[facility] (DEFAULT)[address] [place] [address] Potassium [Moles/Vol] 4.4 mmol/L Normal 3.5-5.[address] [facility] Comment on above: Performed By: #### Chinedu HM7, HFP, MGO ####[facility] (DEFAULT)[address] [place] [address] Sodium [Moles/Vol] 139 mmol/L Normal 135-145 [facility] Comment on above: Performed By: #### C HM7, HFP, MGO ####[facility] (DEFAULT)[address] [place] [address] Urea nitrogen [Mass/Vol] 17 mg/dL Normal 7-[address] [facility] Comment on above: Performed By: #### C HM7, HFP, MGO ####[facility] (DEFAULT)[address] [place] [address] Urea nitrogen/Creatinine [Mass ratio] 16 mg/mg Normal [facility] Comment on above: Performed By: #### C HM7, HFP, MGO ####[facility] (DEFAULT)[address] [place] [address] CT ABDOMEN/PELVIS WITHOUT CO NTRASTon 01-17-2024 CT ABDOMEN/PELVIS WITHOUT CONTRAST Normal [facility] CT Abdomen and Pelvis WO [...] unremarkable. Kidneys: Severe atrophy of the bilateral [place] kidney is without hydronephrosis. Right lower [...] unremarkable. Kidneys: Severe atrophy of the bilateral [place] kidney is without hydronephrosis. Right lower [...] the middle lobe. Trace left pleural effusion. [facility] Radiology Study observation (narrative) [facility] HEPATIC FUNCTION PANELon Albumin [Mass/Vol] 3.5 g/dL 3.5 - 5.0 g/dL [facility] ALP [Catalytic activity/Vol] 73 U/L 32 - 126 U/L [facility] ALT [Catalytic activity/Vol] 7 U/L Low 10 - 52 U/L [facility] AST [Catalytic activity/Vol] 25 U/L 10 - 39 U/L [facility] Bilirubin [Mass/Vol] 1.8 mg/dL High NINF - 1.5 mg/dL [facility] Bilirubin.direct [Mass/Vol] 0.3 mg/dL High NINF - 0.3 mg/dL [facility] Protein [Mass/Vol] 6.0 g/dL Low 6.4 - 8.3 g/dL [facility] Albumin [Mass/Vol] 3.5 g/dL Normal 3.5-5.0 [facility] Comment on above: Performed By: #### C HM7, HFP, MGO ####[facility] (DEFAULT)[address] [place] [address] ALP [Catalytic activity/Vol] 73 U/L Normal 32-[address] [facility] Comment on above: Performed By: #### C HM7, HFP, MGO ####[facility] (DEFAULT)[address] [facility] [place] [address] ALT [Catalytic activity/Vol] 7 U/L Low 10-[address] [facility] Comment on above: Performed By: #### C HM7, HFP, MGO ####[facility] (DEFAULT)[address] [place] [address] AST [Catalytic activity/Vol] 25 U/L Normal 10-[address] [facility] Comment on above: Performed By: #### C HM7, HFP, MGO ####[facility] (DEFAULT)[address] [place] [address] Bilirubin [Mass/Vol] 1.8 mg/dL High <1.[address] [facility] Comment on above: Performed By: #### C HM7, HFP, MGO ####[facility] (DEFAULT)[address] [place] [address] Bilirubin.indirect [Mass/Vol] 0.3 mg/dL High <0.[address] [facility] Comment on above: Performed By: #### C HM7, HFP, MGO ####[facility] (DEFAULT)[address] [place] [address] Protein [Mass/Vol] 6.0 g/dL Low 6.4-8.3 [facility] Comment on above: Performed By: #### C HM7, HFP, MGO ####[facility] (DEFAULT)[address] [place] [address] HISTOPLASMA AND BLASTOMYCES ANTIGEN, ENZYME IMMUNOASSAY, SERMon 01-17-2024 Histoplasma/Blastomy antonia Ag Result Not detected Normal Not Detected [facility] Comment on above: Result Comment: No a ntigen from Histoplasma or Blastomyces detected. Falsenegative results may occur depending on extent of disease,and/or site of infection. Repeat testing on a new specimenif clinically indicated. Performed By: #### H ILYAG ####[facility] (DEFAULT)[address] [place] [address] Histoplasma/Blastomy nat[place] Ag Value Not detected Normal [facility] Comment on above: Result Comment: ---- ADDITIONAL INFORMATION This test was developed and its performance characteristicsdetermined by [facility] in a manner consistent with CLIArequirements. This test has not been cleared or approved bythe U.S. Food and Drug Administration.Test Performed by:[facility] [place] [id number] Director: Rosendo Bose M.D. Ph.D.; CLIA# [id number] Performed By: #### Lydia MONCADA ####[facility] (DEFAULT)[address] [place] [address] MAGNESIUMon 01-17-2024 Interpretation and review of laboratory results Normal [facility] Magnesium [Mass/Vol] 1.7 mg/dL 1.6 - 2 .6 mg/dL [facility] Magnesium [Mass/Vol] 1.7 mg/dL Normal 1.6-2.[address] [facility] Comment on above: Performed By: #### C HM7, HFP, MGO ####[facility] (DEFAULT)[address] [place] [address] No Panel Informationon 01-17 Interpretation and review of laboratory results Abnormal [facility] PT,INR,PTTon 01-17-2024 aPTT Coag (PPP) [Time] 29.9 s [facility] INR Coag (Bld) [Relative time] 1.1 {INR} 0.9 - 1.1 [facility] Interpretation and review of laboratory results Abnormal [facility] PT Coag (PPP) [Time] 14.5 s High [facility] aPTT Coag (Bld) [Time] 29.9 s Normal 24.0-34.[address] [facility] Comment on above: Performed By: #### P TPTT ####[facility] (DEFAULT)[address] [place] [address] INR Coag (PPP) [Relative time] 1.1 {INR} Normal 0.9-1.[address] [facility] Comment on above: Performed By: #### P TPTT ####[facility] (DEFAULT)[address] [place] [address]78 PT Coag (PPP) [Time] 14.5 s High 11.9-14.[address] [facility] Comment on above: Performed By: #### P TPTT ####[facility] (DEFAULT)[address] [place] [address] B-TYPE NATRIURETIC PEPTIDE ( BRAIN)on 01-16-2024 Interpretation and review of laboratory results Abnormal [facility] Natriuretic peptide B (Bld) [Mass/Vol] 212 pg/mL High 0 - 100 pg/mL [facility] Natriuretic peptide B (Bld) [Mass/Vol] 212 pg/mL High 0-[address] [facility] Comment on above: Performed By: #### B [employer] ####[facility] (DEFAULT)[address] [place] [address] CALCIUMon 01-16-2024 Calcium [Mass/Vol] 8.5 mg/dL Low 8.6 - 10. 5 mg/dL [facility] Calcium [Mass/Vol] 8.5 mg/dL Low 8.6-10.5 [facility] Comment on above: Performed By: #### C A, IPB, MGO, CHM7, HFP ####[facility] (DEFAULT)[address] [place] [address] DARYL AURIS SCREEN BY PCRo n 01-16-2024 Daryl auris Screen by PCR Not detected Normal Not Detected [facility] Comment on above: Order Comment: This test was performed using a real-time PCR assay. This test was developed, and its performance characteristics determined by [facility] at [facility]. It has not been cleared or approved by the FDA. The laboratory is regulated under CLIA as qualified to perform high-complexity testing. This test is used for clinical purposes. It should not be regarded as investigational or for research. Performed By: #### C ANDIDA AURIS SCREEN BY PCR ####[facility] (DEFAULT)[address] [place] [address] CBC AND ELECTRONIC DIFFon Basophils (Bld) [#/Vol] K/uL 0.00 - 0.09 K/uL [facility] Basophils/100 WBC (Bld) 0.6 % [facility] Differential cell count method Nom (Bld) Electronic Differential [facility] Eosinophils (Bld) [#/Vol] 0.09 10*3/uL 0.00 - 0.48 K/uL [facility] Eosinophils/100 WBC (Bld) 2.5 % [facility] Erythrocyte distribution width (RBC) [Ratio] 14.0 % 10.9 - 14.3 % [facility] Hematocrit (Bld) [Volume fraction] 37.4 % Low 39.6 - 48.8 % [facility] Hemoglobin (Bld) [Mass/Vol] 12.1 g/dL Low 13.4 - 16.8 g/dL [facility] Immature granulocytes (Bld) [#/Vol] K/uL NINF - 0.07 K/uL [facility] Immature granulocytes/100 WBC (Bld) 0.3 % [facility] Interpretation and review of laboratory results Abnormal [facility] Lymphocytes (Bld) [#/Vol] 1.16 10*3/uL 0.83 - 3.57 K/uL [facility] Lymphocytes/100 WBC (Bld) 32.0 % [facility] MCH (RBC) [Entitic mass] 28.4 pg 26.1 - 33.3 pg [facility] MCHC (RBC) [Mass/Vol] 32.4 g/dL 31.9 - 36.5 g/dL [facility] MCV (RBC) [Entitic vol] 87.8 fL 79.0 - 94.5 fL [facility] Monocytes (Bld) [#/Vol] 0.43 10*3/uL 0.24 - 0.93 K/uL [facility] Monocytes/100 WBC (Bld) 11.9 % [facility] Neutrophils (Bld) [#/Vol] 1.91 10*3/uL 1.57 - 6.19 K/uL [facility] Nucleated RBC/100 WBC (Bld) [Ratio] 0.0 % [facility] Platelet mean volume (Bld) [Entitic vol] 10.1 fL 8.7 - 12.3 fL [facility] Platelets (Bld) [#/Vol] 155 10*3/uL 146 - 337 K/uL [facility] RBC (Bld) [#/Vol] 4.26 10*6/uL Low [facility] Segmented neutrophils/100 WBC (Bld) 52.7 % [facility] WBC (Bld) [#/Vol] 3.62 10*3/uL Low 3.73 - 10. 10 K/uL [facility] Abs Baso Auto < Normal 0.00-0.[address] [facility] Comment on above: Performed By: #### L [id number] ####[facility] (DEFAULT)[address] [place] [address] Basophils/100 WBC (Bld) 0.6 % Normal [facility] Comment on above: Performed By: #### L [id number] ####[facility] (DEFAULT)[address] [place] [address] DIFF STATUS Electronic Differential Normal [facility] Comment on above: Performed By: #### L [id number] ####[facility] (DEFAULT)[address] [place] [address] Eosinophils (Bld) [#/Vol] 0.09 10*3/uL Normal 0.00-0.[address] [facility] Comment on above: Performed By: #### L [id number] ####[facility] (DEFAULT)[address] [place] [address] Eosinophils/100 WBC (Bld) 2.5 % Normal [facility] Comment on above: Performed By: #### L [id number] ####[facility] (DEFAULT)[address] [place] [address] Hematocrit (Bld) [Volume fraction] 37.4 % Low 39.6-48.[address] [facility] Comment on above: Performed By: #### L [id number] ####[facility] (DEFAULT)[address] [place] [address] Hemoglobin (Bld) [Mass/Vol] 12.1 g/dL Low 13.4-16.[address] [facility] Comment on above: Performed By: #### L [id number] ####[facility] (DEFAULT)[address] [place] [address] Immature Grans % 0.3 % Normal [facility] Comment on above: Performed By: #### L [id number] ####[facility] (DEFAULT)[address] [place] [address] Immature Grans Absolute < Normal <=0.[address] [facility] Comment on above: Performed By: #### L [id number] ####[facility] (DEFAULT)[address] [place] [place] [address] Lymphocytes (Bld) [#/Vol] 1.16 10*3/uL Normal 0.83-3.[address] [facility] Comment on above: Performed By: #### L [id number] ####[facility] (DEFAULT)[address] [place] [address] Lymphocytes/100 WBC (Bld) 32.0 % Normal [facility] Comment on above: Performed By: #### L AB980 ####[facility] (DEFAULT)[address] [place] [address] MCV (RBC) [Entitic vol] 87.8 fL Normal 79.0-94.[address] [facility] Comment on above: Performed By: #### L AB980 ####[facility] (DEFAULT)[address] [place] [address] Mean Cell Hgb 28.4 pg Normal 26.1-33.[address] [facility] Comment on above: Performed By: #### L AB980 ####[facility] (DEFAULT)[address] [place] [address] Mean Cell Hgb Conc 32.4 g/dL Normal 31.9-36.5 [facility] Comment on above: Performed By: #### L AB980 ####[facility] (DEFAULT)[address] [place] [address] Monocytes (Bld) [#/Vol] 0.43 10*3/uL Normal 0.24-0.[address] [facility] Comment on above: Performed By: #### L AB980 ####[facility] (DEFAULT)[address] [place] [address] Monocytes/100 WBC (Bld) 11.9 % Normal [facility] Comment on above: Performed By: #### L AB980 ####[facility] (DEFAULT)[address] [place] [address] Nucleated RBC 0.0 /100 WBC Normal <=0.2 [facility] Comment on above: Performed By: #### L AB980 ####[facility] (DEFAULT)[address] [place] [address] Platelet mean volume (Bld) [Entitic vol] 10.1 fL Normal 8.7-12.[address] [facility] Comment on above: Performed By: #### L AB980 ####[facility] (DEFAULT)[address] [place] [address] Platelets (Bld) [#/Vol] 155 10*3/uL Normal 146-[address] [facility] Comment on above: Performed By: #### L AB980 ####[facility] (DEFAULT)[address] [place] [address] RBC (Bld) [#/Vol] 4.26 10*6/uL Low 4.38-5.[address] [facility] Comment on above: Performed By: #### L AB980 ####[facility] (DEFAULT)[address] [place] [address] RBC Distribution 14.0 % Normal 10.9-14.3 [facility] Comment on above: Performed By: #### L AB980 ####[facility] (DEFAULT)[address] [place] [address] Segs + Bands Auto 52.7 % Normal [facility] Comment on above: Performed By: #### L AB980 ####[facility] (DEFAULT)[address] [place] [address] Segs + Bands,Absolute Auto 1.91 K/uL Normal 1.57-6.[address] [facility] Comment on above: Performed By: #### L AB980 ####[facility] (DEFAULT)[address] [place] [address] WBC (Bld) [#/Vol] 3.62 10*3/uL Low 3.73-10.[address] [facility] Comment on above: Performed By: #### L AB980 ####[facility] (DEFAULT)[address] [place] [address] CHEM 7 (LYTES,BUN,CREA,GLUC) on 01-16-2024 Anion gap [Moles/Vol] 11 mmol/L 7 - 17 mmol/L [facility] Chloride [Moles/Vol] 108 mmol/L 98 - 10 8 mmol/L [facility] CO2 [Moles/Vol] 24 mmol/L 21 - 31 mmol/L [facility] Creatinine [Mass/Vol] 1.04 mg/dL 0.70 - 1.30 mg/dL [facility] eGFR, CKD-EPI, Male 86 - PINF [facility] Comment on above: Reported eGFR is bas ed on the CKD-EPI 2020 equation using creatinine, age, and sex. Glucose [Mass/Vol] 95 mg/dL 70 - 99 mg/dL [facility] Osmolality Calc [Osmolality] 293 [facility] Potassium [Moles/Vol] 4.0 mmol/L 3.5 - 5.0 mmol/L [facility] Sodium [Moles/Vol] 139 mmol/L 135 - 145 mmol/L [facility] Urea nitrogen [Mass/Vol] 19 mg/dL 7 - 25 mg/dL [facility] Urea nitrogen/Creatinine [Mass ratio] 18 mg/mg [facility] Anion gap [Moles/Vol] 11 mmol/L Normal 7-[address] [facility] Comment on above: Performed By: #### C A, IPB, MGO, CHM7, HFP ####[facility] (DEFAULT)[address] [place] [address] Chloride [Moles/Vol] 108 mmol/L Normal 98-[address] [facility] Comment on above: Performed By: #### C A, IPB, MGO, CHM7, HFP ####[facility] (DEFAULT)[address] [place] [address] CO2 [Moles/Vol] 24 mmol/L Normal 21-31 [facility] Comment on above: Performed By: #### C A, IPB, MGO, CHM7, HFP ####[facility] (DEFAULT)[address] [place] [address] Creatinine [Mass/Vol] 1.04 mg/dL Normal 0.70-1.[address] [facility] Comment on above: Performed By: #### C A, IPB, MGO, CHM7, HFP ####[facility] (DEFAULT)[address] [place] [address] GFR/1.73 sq M.predicted among non-blacks MDRD (S/P/Bld) [Vol rate/Area] 86 mL/min/{1.73_m2} Normal >=[address] [facility] Comment on above: Result Comment: Repo rted eGFR is based on the CKD-EPI 2020 equation using creatinine, age, and sex. Performed By: #### C A, IPB, MGO, CHM7, HFP ####[facility] (DEFAULT)[address] [place] [address] Glucose [Mass/Vol] 95 mg/dL Normal 70-99 [facility] Comment on above: Performed By: #### C A, IPB, MGO, CHM7, HFP ####[facility] (DEFAULT)[address] [place] [address] Osmolality [Osmolality] 293 mosm/kg Normal 278-[address] [facility] Comment on above: Performed By: #### C A, IPB, MGO, CHM7, HFP ####[facility] (DEFAULT)[address] [place] [address] Potassium [Moles/Vol] 4.0 mmol/L Normal 3.5-5.[address] [facility] Comment on above: Performed By: #### C Tray, IPB, MGO, CHM7, HFP ####[facility] (DEFAULT)[address] [place] [address] Sodium [Moles/Vol] 139 mmol/L Normal 135-145 [facility] Comment on above: Performed By: #### C A, IPB, MGO, CHM7, HFP ####[facility] (DEFAULT)[address] [place] [address] Urea nitrogen [Mass/Vol] 19 mg/dL Normal 7-[address] [facility] Comment on above: Performed By: #### C A, IPB, MGO, CHM7, HFP ####[facility] (DEFAULT)[address] [place] [address] Urea nitrogen/Creatinine [Mass ratio] 18 mg/mg Normal [facility] Comment on above: Performed By: #### C A, IPB, MGO, CHM7, HFP ####[facility] (DEFAULT)[address] [place] [address] D-DIMER,QUANTITATIVEOrdered By: Shaji Kelly on 01-16-2024 Fibrin D-dimer FEU (PPP) [Mass/Vol] 0.67 [facility] Comment on above: The D-Dimer assay is intended for use in conjuction with a clinical pretest probability (PTP) assessment model to exclude pulmonary embolism (PE) and as an aid in the diagnosis of Deep Vein Thrombosis (DVT) in outpatients suspected of PE or DVT. For the assay in use at [facility] ([facility]), a cutoff of <0.50 mcg/mL has a Negative Predictive Value of 99.7% for exclusion of DVT in low and moderate PTP patients. Interpretation and review of laboratory results Abnormal [facility] D-DIMER,QUANTITATIVEon 01-16 D-Dimer, High Sensitivity 0.67 mcg/mL FEU High <0.[address] [facility] Comment on above: Result Comment: The D-Dimer assay is intended for use in conjuction with a clinical pretest probability (PTP) assessment model to exclude pulmonary embolism (PE) and as an aid in the diagnosis of Deep Vein Thrombosis (DVT) in outpatients suspected of PE or DVT. For the assay in use at [facility] ([facility]), a cutoff of <0.50 mcg/mL has a Negative Predictive Value of 99.7% for exclusion of DVT in low and moderate PTP patients. Performed By: #### P TPTT, HSDDI ####[facility] (DEFAULT)[address] [place] [address] HEPATIC FUNCTION PANELon Albumin [Mass/Vol] 3.7 g/dL 3.5 - 5.0 g/dL [facility] ALP [Catalytic activity/Vol] 70 U/L 32 - 126 U/L [facility] ALT [Catalytic activity/Vol] 8 U/L Low 10 - 52 U/L [facility] AST [Catalytic activity/Vol] 21 U/L 10 - 39 U/L [facility] Bilirubin [Mass/Vol] 1.9 mg/dL High NINF - 1.5 mg/dL [facility] Bilirubin.direct [Mass/Vol] 0.4 mg/dL High NINF - 0.3 mg/dL [facility] Protein [Mass/Vol] 6.1 g/dL Low 6.4 - 8.3 g/dL [facility] Albumin [Mass/Vol] 3.7 g/dL Normal 3.5-5.0 [facility] Comment on above: Performed By: #### C A, IPB, MGO, CHM7, HFP ####[facility] (DEFAULT)[address] [place] [address] ALP [Catalytic activity/Vol] 70 U/L Normal 32-[address] [facility] Comment on above: Performed By: #### C A, IPB, MGO, CHM7, HFP ####[facility] (DEFAULT)[address] [place] [address] ALT [Catalytic activity/Vol] 8 U/L Low 10-[address] [facility] Comment on above: Performed By: #### C A, IPB, MGO, CHM7, HFP ####[facility] (DEFAULT)[address] [place] [address] AST [Catalytic activity/Vol] 21 U/L Normal 10-[address] [facility] Comment on above: Performed By: #### C A, IPB, MGO, CHM7, HFP ####[facility] (DEFAULT)[address] [place] [address] Bilirubin [Mass/Vol] 1.9 mg/dL High <1.[address] [facility] Comment on above: Performed By: #### C A, IPB, MGO, CHM7, HFP ####[facility] (DEFAULT)[address] [place] [address] Bilirubin.indirect [Mass/Vol] 0.4 mg/dL High <0.[address] [facility] Comment on above: Performed By: #### C A, IPB, MGO, CHM7, HFP ####[facility] (DEFAULT)[address] [place] [address] Protein [Mass/Vol] 6.1 g/dL Low 6.4-8.3 [facility] Comment on above: Performed By: #### C A, IPB, MGO, CHM7, HFP ####[facility] (DEFAULT)[address] [place] [address] MAGNESIUMon 01-16-2024 Magnesium [Mass/Vol] 1.7 mg/dL 1.6 - 2 .6 mg/dL [facility] Magnesium [Mass/Vol] 1.7 mg/dL Normal 1.6-2.[address] [facility] Comment on above: Performed By: #### C A, IPB, MGO, CHM7, HFP ####[facility] (DEFAULT)[address] [place] [address] No Panel Informationon 01-16 Interpretation and review of laboratory results Abnormal [facility] Interpretation and review of laboratory results Normal [facility] PHOSPHATE, INORGANICon 01-16 Phosphate [Mass/Vol] 4.1 mg/dL 2.2 - 4 .6 mg/dL [facility] Phosphorous 4.1 mg/dL Normal 2.2-4.[address] [facility] Comment on above: Performed By: #### C A, IPB, MGO, CHM7, HFP ####[facility] (DEFAULT)[address] [place] [address] PT,INR,PTTon 01-16-2024 aPTT Coag (PPP) [Time] 29.6 s [facility] INR Coag (Bld) [Relative time] 1.2 {INR} High 0.9 - 1.1 [facility] Interpretation and review of laboratory results Abnormal [facility] PT Coag (PPP) [Time] 14.9 s High [facility] aPTT Coag (Bld) [Time] 29.6 s Normal 24.0-34.[address] [facility] Comment on above: Performed By: #### P TPTT, HSDDI ####[facility] (DEFAULT)[address] [place] [address] INR Coag (PPP) [Relative time] 1.2 {INR} High 0.9-1.[address] [facility] Comment on above: Performed By: #### P TPTTSABASDI ####[facility] (DEFAULT)[address] [place] [address] PT Coag (PPP) [Time] 14.9 s High 11.9-14.[address] [facility] Comment on above: Performed By: #### P TPTT, HSDDI ####[facility] (DEFAULT)[address] [place] [address] TACROLIMUS LEVEL, TROUGH (DE E DRUG LEVEL)Ordered By: Jimy Castillo on 01-16-2024 Interpretation and review of laboratory results Normal [facility] Tacrolimus (Bld) [Mass/Vol] 5.7 ng/mL Bone Marrow Transplant: 4.0-12.0, Therapeutic: 5.0-15.0 [facility] Method performed is a chemiluminescent microparticle immunoasssay on the [employer] i2000. The range is based on experience at [facility] and users should be aware that target concentrations vary widely depending on concomitant therapy, time post-transplant, and desired degree of immunosuppression. [facility] TACROLIMUS LEVEL, TROUGH (DE E DRUG LEVEL)on 01-16-2024 Tacrolimus, Trough 5.7 ng/mL Normal Bone Susana ow Transplant: 4.0-12.0, Therapeutic: 5.0-15.[address] [facility] Comment on above: Order Comment: Pleas e draw at specified interval PRIOR to dose. Do not hold dose to wait for level. Specimens batched twice per day, (M-F) and once per day weekendsMethod performed is a chemiluminescent microparticle immunoasssay on the [employer] i2000.The range is based on experience at [facility] and users should be aware that target concentrations vary widely depending on concomitant therapy, time post-transplant, and desired degree of immunosuppression. Performed By: #### T ACRO ####[facility] (DEFAULT)[address] [place] [address] US ABDOMEN LIVER DOPPLERon 0 01-16-2024 US ABDOMEN LIVER DOPPLER Normal [facility] US.doppler Abdominal vessels on 01-16-2024 [...] Trace right upper quadrant ascites. [facility] Radiology Study observation (narrative) [facility] US.doppler Abdominal vessels Ordered By: Iona Duran on 01-16-2024 [facility] Work Phone: XR CHEST PA AND LATERAL 2 EWSon 01-16-2024 XR CHEST PA AND LATERAL 2 VIEWS Normal [facility] XR Chest PA and Lateralon [...] IMPRESSION: Moderate right pleural effusion. [facility] Radiology Study observation (narrative) [facility] XR Chest PA and LateralOrder ed By: Daisha Patterson on 01-16-2024 [facility] Work Phone: ALL CBC WITH AUTO DIFFon [...] mass] 28.4 pg 25.9 - 34.0 [facility] (RBC) [Mass/Vol] 32.0 g/dL 29.9 - 35.2 g/dL [facility] MCV (RBC) [Entitic vol] 88.6 fL 80.0 - 94.0 fL [facility] MONOCYTES ABSOLUTE AUTO 0.5 [facility] Monocytes/100 WBC (Bld) 11.9 % 1.7 - 12.0 % [facility] NEUTROPHILS ABSOLUTE AUTO 1.9 [facility] Neutrophils/100 WBC (Bld) 47.0 % 43.0 - 75.0 % [facility] Platelet mean volume (Bld) [Entitic vol] 10.3 fL 9.5 - 13.5 fL [facility]1 [facility] PLT 180 [facility] RBC 4.93 [facility] WBC 4.0 [facility] CLINISYNC [...] vol] 9.8 fL 9.5 - 13.5 fL [facility] EO # 0.1 [facility] PLT 180 [facility] RBC 5.01 [facility] TB WBC 3.9 Low [facility] CHEM 7 (LYTES,BUN,CREA,GLUC) on 09-11-2023 Anion gap [Moles/Vol] 13 mmol/L 7 - 17 mmol/L [facility] Chloride [Moles/Vol] 111 mmol/L High 98 - 10 8 mmol/L [facility] CO2 [Moles/Vol] 20 mmol/L Low 21 - 31 mmol/L [facility] Creatinine [Mass/Vol] 1.13 mg/dL 0.70 - 1.30 mg/dL [facility] eGFR, CKD-EPI, Male 78 - PINF [facility] Glucose [Mass/Vol] 109 mg/dL High 70 - 99 mg/dL [facility] Interpretation and review of laboratory results Abnormal [facility] Osmolality Calc [Osmolality] 295 [facility] Potassium [Moles/Vol] 4.3 mmol/L 3.5 - 5.0 mmol/L [facility] Sodium [Moles/Vol] 140 mmol/L 135 - 145 mmol/L [facility] Urea nitrogen [Mass/Vol] 16 mg/dL 7 - 25 mg/dL [facility] Urea nitrogen/Creatinine [Mass ratio] 14 mg/mg [facility] Anion gap [Moles/Vol] 13 mmol/L Normal 7-[address] [facility] Comment on above: Performed By: #### NATHANIEL RAMÍREZ ####[facility] (DEFAULT)[address] [place] [address] Chloride [Moles/Vol] 111 mmol/L High 98-[address] [facility] Comment on above: Performed By: #### NATHANIEL RAMÍREZ ####[facility] (DEFAULT)[address] [place] [address] CO2 [Moles/Vol] 20 mmol/L Low 21-31 [facility] Comment on above: Performed By: #### NATHANIEL RAMÍREZ ####[facility] (DEFAULT)[address] [place] [address] Creatinine [Mass/Vol] 1.13 mg/dL Normal 0.70-1.[address] [facility] Comment on above: Performed By: #### Rod BLOOM CHM7 ####[facility] (DEFAULT)[address] [place] [address] GFR/1.73 sq M.predicted among non-blacks MDRD (S/P/Bld) [Vol rate/Area] 78 mL/min/{1.73_m2} Normal >=[address] [facility] Comment on above: Result Comment: Repo rted eGFR is based on the CKD-EPI 2020 equation using creatinine, age, and sex. Performed By: #### Rod BLOOM CHM7 ####[facility] (DEFAULT)[address] [place] [address] Glucose [Mass/Vol] 109 mg/dL High 70-99 [facility] Comment on above: Performed By: #### Rod BLOOM CHM7 ####[facility] (DEFAULT)[address] [place] [address] Osmolality [Osmolality] 295 mosm/kg Normal 278-[address] [facility] Comment on above: Performed By: #### Rod BLOOM CHM7 ####[facility] (DEFAULT)[address] [place] [address] Potassium [Moles/Vol] 4.3 mmol/L Normal 3.5-5.[address] [facility] Comment on above: Performed By: #### Rod BLOOM CHM7 ####[facility] (DEFAULT)[address] [place] [address] Sodium [Moles/Vol] 140 mmol/L Normal 135-145 [facility] Comment on above: Performed By: #### Rod BLOOM CHM7 ####[facility] (DEFAULT)[address] [place] [address] Urea nitrogen [Mass/Vol] 16 mg/dL Normal 7-[address] [facility] Comment on above: Performed By: #### TJ RAMÍREZ7 ####[facility] (DEFAULT)[address] [place] [address] Urea nitrogen/Creatinine [Mass ratio] 14 mg/mg Normal [facility] Comment on above: Performed By: #### TJ RAMÍREZ7 ####[facility] (DEFAULT)[address] [place] [address] GLUCOSE POCon 09-11-2023 Glucose [Mass/Vol] 108 mg/dL High 70 - 99 mg/dL [facility] Interpretation and review of laboratory results Abnormal [facility] POC Sample Type CAPBL [facility] Legionella sp identified Org specific cx Nom (Unsp spec)on 09-11-2023 Bacteria identified Cx Nom (Unsp spec) NO GROWTH DAY 7 OF 7 [facility] MAGNESIUMon 09-11-2023 Interpretation and review of laboratory results Normal [facility] Magnesium [Mass/Vol] 1.6 mg/dL 1.6 - 2 .6 mg/dL [facility] Magnesium [Mass/Vol] 1.6 mg/dL Normal 1.6-2.[address] [facility] Comment on above: Performed By: #### NATHANIEL RAMÍREZ ####[facility] (DEFAULT)[address] [place] [address] No Panel Informationon 09-11 [facility] TACROLIMUS LEVEL, TROUGH (DE E DRUG LEVEL)on 09-11-2023 Interpretation and review of laboratory results Normal [facility] Tacrolimus (Bld) [Mass/Vol] 11.5 ng/mL [facility] Tacrolimus, Trough 11.5 ng/mL Normal Bone Susana ow Transplant: 4.0-12.0, Therapeutic: 5.0-15.[address] [facility] Comment on above: Order Comment: Dilan gregory draw at specified interval PRIOR to dose. Do not hold dose to wait for level. Specimens batched twice per day, (M-F) and once per day weekendsMethod performed is a chemiluminescent microparticle immunoasssay on the [employer] i2000.The range is based on experience at [facility] and users should be aware that target concentrations vary widely depending on concomitant therapy, time post-transplant, and desired degree of immunosuppression. Performed By: #### T ACRO ####[facility] (DEFAULT)[address] [place] [address] CBC,PLATELETSon 09-10-2023 Erythrocyte distribution width (RBC) [Ratio] 13.9 % 10.9 - 14.3 % [facility] Hematocrit (Bld) [Volume fraction] 40.0 % 39.6 - 48.8 % [facility] Hemoglobin (Bld) [Mass/Vol] 12.7 g/dL Low 13.4 - 16.8 g/dL [facility] [facility] Interpretation and review of laboratory results Abnormal [facility] MCH (RBC) [Entitic mass] 27.3 pg 26.1 - 33.3 pg [facility] MCHC (RBC) [Mass/Vol] 31.8 g/dL Low 31.9 - 36.5 g/dL [facility] MCV (RBC) [Entitic vol] 86.0 fL 79.0 - 94.5 fL [facility] Platelet mean volume (Bld) [Entitic vol] 9.5 fL 8.7 - 12.3 fL [facility] Platelets (Bld) [#/Vol] 225 10*3/uL 146 - 337 K/uL [facility] RBC (Bld) [#/Vol] 4.65 10*6/uL [facility] WBC (Bld) [#/Vol] 6.52 10*3/uL 3.73 - 10. 10 K/uL [facility] Hematocrit (Bld) [Volume fraction] 40.0 % Normal 39.6-48.[address] [facility] Comment on above: Performed By: #### H EMOGC ####[facility] (DEFAULT)[address] [facility] [place] [address] Hemoglobin (Bld) [Mass/Vol] 12.7 g/dL Low 13.4-16.[address] [facility] Comment on above: Performed By: #### H EMOGC ####[facility] (DEFAULT)[address] [place] [address] MCV (RBC) [Entitic vol] 86.0 fL Normal 79.0-94.[address] [facility] Comment on above: Performed By: #### H EMOGC ####[facility] (DEFAULT)[address] [place] [address] Mean Cell Hgb 27.3 pg Normal 26.1-33.[address] [facility] Comment on above: Performed By: #### H EMOGC ####[facility] (DEFAULT)[address] [place] [address] Mean Cell Hgb Conc 31.8 g/dL Low 31.9-36.5 [facility] Comment on above: Performed By: #### H EMOGC ####[facility] (DEFAULT)[address] [place] [place] [address] Platelet mean volume (Bld) [Entitic vol] 9.5 fL Normal 8.7-12.[address] [facility] Comment on above: Performed By: #### H EMOGC ####[facility] (DEFAULT)[address] [facility] [place] [address] Platelets (Bld) [#/Vol] 225 10*3/uL Normal 146-[address] [facility] Comment on above: Performed By: #### H EMOGC ####[facility] (DEFAULT)[address] [place] [place] [address] RBC (Bld) [#/Vol] 4.65 10*6/uL Normal 4.38-5.[address] [facility] Comment on above: Performed By: #### H EMOGC ####[facility] (DEFAULT)[address] [place] [address] RBC Distribution 13.9 % Normal 10.9-14.3 [facility] Comment on above: Performed By: #### H [facility] ####[facility] (DEFAULT)[address] [place] [address] WBC (Bld) [#/Vol] 6.52 10*3/uL Normal 3.73-10.[address] [facility] Comment on above: Performed By: #### H [facility] ####[facility] (DEFAULT)[address] [place] [address] CHEM 7 (LYTES,BUN,CREA,GLUC) on 09-10-2023 Anion gap [Moles/Vol] 13 mmol/L 7 - 17 mmol/L [facility] Chloride [Moles/Vol] 111 mmol/L High 98 - 10 8 mmol/L [facility] CO2 [Moles/Vol] 20 mmol/L Low 21 - 31 mmol/L [facility] Creatinine [Mass/Vol] 1.27 mg/dL 0.70 - 1.30 mg/dL [facility] eGFR, CKD-EPI, Male 68 - PINF [facility] Glucose [Mass/Vol] 100 mg/dL High 70 - 99 mg/dL [facility] Osmolality Calc [Osmolality] 293 [facility] Potassium [Moles/Vol] 4.4 mmol/L 3.5 - 5.0 mmol/L [facility] Sodium [Moles/Vol] 140 mmol/L 135 - 145 mmol/L [facility] Urea nitrogen [Mass/Vol] 12 mg/dL 7 - 25 mg/dL [facility] Urea nitrogen/Creatinine [Mass ratio] 9 mg/mg [facility] Anion gap [Moles/Vol] 13 mmol/L Normal 7-[address] [facility] Comment on above: Performed By: #### M GO, CHM7, HFP ####[facility] (DEFAULT)[address] [place] [address] Chloride [Moles/Vol] 111 mmol/L High 98-[address] [facility] Comment on above: Performed By: #### NATHANIEL RAMÍREZ, HFP ####[facility] (DEFAULT)[address] [place] [address] CO2 [Moles/Vol] 20 mmol/L Low 21-31 [facility] Comment on above: Performed By: #### NATHANIEL RAMÍREZ, HFP ####[facility] (DEFAULT)[address] [facility] [place] [address] Creatinine [Mass/Vol] 1.27 mg/dL Normal 0.70-1.[address] [facility] Comment on above: Performed By: #### NATHANIEL RAMÍREZ, HFP ####U [facility] (DEFAULT)[address] [place] [address] GFR/1.73 sq M.predicted among non-blacks MDRD (S/P/Bld) [Vol rate/Area] 68 mL/min/{1.73_m2} Normal >=[address] [facility] Comment on above: Result Comment: Repo rted eGFR is based on the CKD-EPI 2020 equation using creatinine, age, and sex. Performed By: #### NATHANIEL RAMÍREZ, HFP ####U [facility] (DEFAULT)[address] [place] [address] Glucose [Mass/Vol] 100 mg/dL High 70-99 [facility] Comment on above: Performed By: #### NATHANIEL RAMÍREZ, HFP ####U [facility] (DEFAULT)[address] [place] [address] Osmolality [Osmolality] 293 mosm/kg Normal 278-[address] [facility] Comment on above: Performed By: #### NATHANIEL RAMÍREZ, HFP ####U [facility] (DEFAULT)[address] [place] [address] Potassium [Moles/Vol] 4.4 mmol/L Normal 3.5-5.[address] [facility] Comment on above: Performed By: #### NATHANIEL RAMÍREZ, HFP ####[facility] (DEFAULT)[address] [place] [address] Sodium [Moles/Vol] 140 mmol/L Normal 135-145 [facility] Comment on above: Performed By: #### NATHANIEL RAMÍREZ, HFP ####[facility] (DEFAULT)[address] [place] [address] Urea nitrogen [Mass/Vol] 12 mg/dL Normal 7-[address] [facility] Comment on above: Performed By: #### NATHANIEL RAMÍREZ, HFP ####[facility] (DEFAULT)[address] [place] [address] Urea nitrogen/Creatinine [Mass ratio] 9 mg/mg Normal [facility] Comment on above: Performed By: #### NATHANIEL RAMÍREZ, HFP ####[facility] (DEFAULT)[address] [place] [address] HEPATIC FUNCTION PANELon Albumin [Mass/Vol] 3.3 g/dL Low 3.5 - 5.0 g/dL [facility] ALP [Catalytic activity/Vol] 143 U/L High 32 - 126 U/L [facility] ALT [Catalytic activity/Vol] 28 U/L 10 - 52 U/L [facility] AST [Catalytic activity/Vol] 29 U/L 10 - 39 U/L [facility] Bilirubin [Mass/Vol] 0.9 mg/dL [facility]/dL [facility] Bilirubin.direct [Mass/Vol] 0.2 mg/dL NINF - 0.3 mg/dL [facility] Protein [Mass/Vol] 6.8 g/dL 6.4 - 8.3 g/dL [facility] Albumin [Mass/Vol] 3.3 g/dL Low 3.5-5.0 [facility] Comment on above: Performed By: #### M HELEN BLOOMM7, HFP ####[facility] (DEFAULT)[address] [place] [address] ALP [Catalytic activity/Vol] 143 U/L High 32-[address] [facility] Comment on above: Performed By: #### M HELEN BLOOMM7, HFP ####[facility] (DEFAULT)[address] [place] [address] ALT [Catalytic activity/Vol] 28 U/L Normal 10-[address] [facility] Comment on above: Performed By: #### M TJ BLOOM7, HFP ####[facility] (DEFAULT)[address] [place] [address] AST [Catalytic activity/Vol] 29 U/L Normal 10-[address] [facility] Comment on above: Performed By: #### TJ RAMÍREZ7, HFP ####[facility] (DEFAULT)[address] [place] [address] Bilirubin [Mass/Vol] 0.9 mg/dL Normal <1.[address] [facility] Comment on above: Performed By: #### Rod BLOOM CHM7, HFP ####[facility] (DEFAULT)[address] [place] [address] Bilirubin.indirect [Mass/Vol] 0.2 mg/dL Normal <0.[address] [facility] Comment on above: Performed By: #### M HELEN BLOOMM7, HFP ####[facility] (DEFAULT)[address] [place] [address] Protein [Mass/Vol] 6.8 g/dL Normal 6.4-8.3 [facility] Comment on above: Performed By: #### Rod BLOOM CHM7, HFP ####[facility] (DEFAULT)[address] [place] [address] MAGNESIUMon 09-10-2023 Interpretation and review of laboratory results Normal [facility] Magnesium [Mass/Vol] 1.9 mg/dL 1.6 - 2 .6 mg/dL [facility] Magnesium [Mass/Vol] 1.9 mg/dL Normal 1.6-2.[address] [facility] Comment on above: Performed By: #### M GO, CHM7, HFP ####[facility] (DEFAULT)[address] [place] [address] No Panel Informationon 09-10 Interpretation and review of laboratory results Abnormal [facility] TACROLIMUS LEVEL, TROUGH (DE E DRUG LEVEL)Ordered By: Jimy Castillo on 09-10-2023 Interpretation and review of laboratory results Normal [facility] Tacrolimus (Bld) [Mass/Vol] 11.8 ng/mL [facility] TACROLIMUS LEVEL, TROUGH (DE E DRUG LEVEL)on 09-10-2023 Tacrolimus, Trough 11.8 ng/mL Normal Bone Susana ow Transplant: 4.0-12.0, Therapeutic: 5.0-15.[address] [facility] Comment on above: Order Comment: Pleas e draw at specified interval PRIOR to dose. Do not hold dose to wait for level. Specimens batched twice per day, (M-F) and once per day weekendsMethod performed is a chemiluminescent microparticle immunoasssay on the [employer] i2000.The range is based on experience at [facility] and users should be aware that target concentrations vary widely depending on concomitant therapy, time post-transplant, and desired degree of immunosuppression. Performed By: #### T ACRO ####[facility] (DEFAULT)[address] [place] [address] CHEM 7 (LYTES,BUN,CREA,GLUC) on 09-09-2023 Anion gap [Moles/Vol] 14 mmol/L 7 - 17 mmol/L [facility] Chloride [Moles/Vol] 113 mmol/L High 98 - 10 8 mmol/L [facility] CO2 [Moles/Vol] 18 mmol/L Low 21 - 31 mmol/L [facility] Creatinine [Mass/Vol] 1.03 mg/dL 0.70 - 1.30 mg/dL [facility] eGFR, CKD-EPI, Male 87 - PINF [facility] Glucose [Mass/Vol] 106 mg/dL High 70 - 99 mg/dL [facility] Interpretation and review of laboratory results Abnormal [facility] Osmolality Calc [Osmolality] 294 [facility] Potassium [Moles/Vol] 4.0 mmol/L 3.5 - 5.0 mmol/L [facility] Sodium [Moles/Vol] 141 mmol/L 135 - 145 mmol/L [facility] Urea nitrogen [Mass/Vol] 10 mg/dL 7 - 25 mg/dL [facility] Urea nitrogen/Creatinine [Mass ratio] 10 mg/mg [facility] Anion gap [Moles/Vol] 14 mmol/L Normal 7-[address] [facility] Comment on above: Performed By: #### JO ANN RAMÍREZ CHM7 ####[facility] (DEFAULT)[address] [place] [address] Chloride [Moles/Vol] 113 mmol/L High 98-[address] [facility] Comment on above: Performed By: #### JO ANN RAMÍREZ CHM7 ####[facility] (DEFAULT)[address] [place] [address] CO2 [Moles/Vol] 18 mmol/L Low 21-31 [facility] Comment on above: Performed By: #### JO ANN RAMÍREZ CHM7 ####[facility] (DEFAULT)[address] [place] [address] Creatinine [Mass/Vol] 1.03 mg/dL Normal 0.70-1.[address] [facility] Comment on above: Performed By: #### JO ANN RAMÍREZ, CHM7 ####[facility] (DEFAULT)[address] [place] [address] GFR/1.73 sq M.predicted among non-blacks MDRD (S/P/Bld) [Vol rate/Area] 87 mL/min/{1.73_m2} Normal >=[address] [facility] Comment on above: Result Comment: Repo rted eGFR is based on the CKD-EPI 2020 equation using creatinine, age, and sex. Performed By: #### JO ANN RAMÍREZ CHM7 ####[facility] (DEFAULT)[address] [place] [address] Glucose [Mass/Vol] 106 mg/dL High 70-99 [facility] Comment on above: Performed By: #### JO ANN RAMÍREZ CHM7 ####U [facility] (DEFAULT)[address] [place] [address] Osmolality [Osmolality] 294 mosm/kg Normal 278-[address] [facility] Comment on above: Performed By: #### JO ANN RAMÍREZ CHM7 ####[facility] (DEFAULT)[address] [place] [address] Potassium [Moles/Vol] 4.0 mmol/L Normal 3.5-5.[address] [facility] Comment on above: Performed By: #### JO ANN RAMÍREZ CHM7 ####U [facility] (DEFAULT)[address] [place] [address] Sodium [Moles/Vol] 141 mmol/L Normal 135-145 [facility] Comment on above: Performed By: #### JO ANN RAMÍREZ, CHM7 ####U [facility] (DEFAULT)[address] [place] [address] Urea nitrogen [Mass/Vol] 10 mg/dL Normal 7-[address] [facility] Comment on above: Performed By: #### JO ANN RAMÍREZ, CHM7 ####U [facility] (DEFAULT)[address] [place] [address] Urea nitrogen/Creatinine [Mass ratio] 10 mg/mg Normal [facility] Comment on above: Performed By: #### JO ANN RAMÍREZ CHM7 ####[facility] (DEFAULT)[address] [place] [address] MAGNESIUMon 09-09-2023 Magnesium [Mass/Vol] 1.6 mg/dL 1.6 - 2 .6 mg/dL [facility] Magnesium [Mass/Vol] 1.6 mg/dL Normal 1.6-2.[address] [facility] Comment on above: Performed By: #### M JO ANN BLOOM CHM7 ####[facility] (DEFAULT)[address] [place] [address] No Panel Informationon 09-09 Interpretation and review of laboratory results Normal [facility] PHOSPHATE, INORGANICon 09-09 Phosphate [Mass/Vol] 3.8 mg/dL 2.2 - 4 .6 mg/dL [facility] Phosphorous 3.8 mg/dL Normal 2.2-4.[address] [facility] Comment on above: Performed By: #### M JO ANN BLOOM CHM7 ####[facility] (DEFAULT)[address] [place] [address] TACROLIMUS LEVEL, TROUGH (DE E DRUG LEVEL)on 09-09-2023 Interpretation and review of laboratory results Normal [facility] Tacrolimus (Bld) [Mass/Vol] 9.2 ng/mL [facility] Tacrolimus, Trough 9.2 ng/mL Normal Bone Susana ow Transplant: 4.0-12.0, Therapeutic: 5.0-15.[address] [facility] Comment on above: Order Comment: Pleas e draw at specified interval PRIOR to dose. Do not hold dose to wait for level. Specimens batched twice per day, (M-F) and once per day weekendsMethod performed is a chemiluminescent microparticle immunoasssay on the [employer] i2000.The range is based on experience at [facility] and users should be aware that target concentrations vary widely depending on concomitant therapy, time post-transplant, and desired degree of immunosuppression. Performed By: #### T ACRO ####[facility] (DEFAULT)[address] [place] [address] CBC,PLATELETSon 09-08-2023 Erythrocyte distribution width (RBC) [Ratio] 13.6 % 10.9 - 14.3 % [facility] Hematocrit (Bld) [Volume fraction] 36.1 % Low 39.6 - 48.8 % [facility] Hemoglobin (Bld) [Mass/Vol] 11.6 g/dL Low 13.4 - 16.8 g/dL [facility] Interpretation and review of laboratory results Abnormal [facility] MCH (RBC) [Entitic mass] 27.4 pg 26.1 - 33.3 pg [facility] MCHC (RBC) [Mass/Vol] 32.1 g/dL 31.9 - 36.5 g/dL [facility] MCV (RBC) [Entitic vol] 85.1 fL 79.0 - 94.5 fL [facility] Platelet mean volume (Bld) [Entitic vol] 9.5 fL 8.7 - 12.3 fL [facility] Platelets (Bld) [#/Vol] 182 10*3/uL 146 - 337 K/uL [facility] RBC (Bld) [#/Vol] 4.24 10*6/uL Low [facility] WBC (Bld) [#/Vol] 4.59 10*3/uL 3.73 - 10. 10 K/uL [facility] Hematocrit (Bld) [Volume fraction] 36.1 % Low 39.6-48.[address] [facility] Comment on above: Performed By: #### H [facility] ####[facility] (DEFAULT)[address] [place] [address] Hemoglobin (Bld) [Mass/Vol] 11.6 g/dL Low 13.4-16.[address] [facility] Comment on above: Performed By: #### H EMO ####[facility] (DEFAULT)[address] [place] [address] MCV (RBC) [Entitic vol] 85.1 fL Normal 79.0-94.[address] [facility] Comment on above: Performed By: #### H EMOGC ####[facility] (DEFAULT)[address] [place] [address] Mean Cell Hgb 27.4 pg Normal 26.1-33.[address] [facility] Comment on above: Performed By: #### H EMOGC ####[facility] (DEFAULT)[address] [place] [address] Mean Cell Hgb Conc 32.1 g/dL Normal 31.9-36.5 [facility] Comment on above: Performed By: #### H EMOGC ####U [facility] (DEFAULT)[address] [place] [address] Platelet mean volume (Bld) [Entitic vol] 9.5 fL Normal 8.7-12.[address] [facility] Comment on above: Performed By: #### H EMOGC ####[facility] (DEFAULT)[address] [place] [address] Platelets (Bld) [#/Vol] 182 10*3/uL Normal 146-[address] [facility] Comment on above: Performed By: #### H EMOGC ####[facility] (DEFAULT)[address] [place] [address] RBC (Bld) [#/Vol] 4.24 10*6/uL Low 4.38-5.[address] [facility] Comment on above: Performed By: #### H EMOGC ####[facility] (DEFAULT)[address] [place] [address] RBC Distribution 13.6 % Normal 10.9-14.3 [facility] Comment on above: Performed By: #### H EMOGC ####[facility] (DEFAULT)[address] [place] [address] WBC (Bld) [#/Vol] 4.59 10*3/uL Normal 3.73-10.[address] [facility] Comment on above: Performed By: #### H [facility] ####[facility] (DEFAULT)[address] [place] [address] CHEM 7 (LYTES,BUN,CREA,GLUC) on 09-08-2023 Anion gap [Moles/Vol] 12 mmol/L 7 - 17 [facility] Chloride [Moles/Vol] 113 mmol/L High 98 - 10 8 mmol/L [facility] CO2 [Moles/Vol] 21 mmol/L 21 - 31 mmol/L [facility] Creatinine [Mass/Vol] 1.14 mg/dL 0.70 - 1.30 mg/dL [facility] eGFR, CKD-EPI, Male 77 - PINF [facility] Glucose [Mass/Vol] 107 mg/dL High 70 - 99 mg/dL [facility] Osmolality Calc [Osmolality] [facility] Potassium [Moles/Vol] 3.9 mmol/L 3.5 - 5.0 mmol/L [facility] Sodium [Moles/Vol] 142 mmol/L 135 - 145 mmol/L [facility] Urea nitrogen [Mass/Vol] 11 mg/dL 7 - 25 mg/dL [facility] Urea nitrogen/Creatinine [Mass ratio] 10 mg/mg [facility] Anion gap [Moles/Vol] 12 mmol/L Normal 7-[address] [facility] Comment on above: Performed By: #### M JO ANN BLOOM, CHM7, HFP ####U [facility] (DEFAULT)[address] [place] [address] Chloride [Moles/Vol] 113 mmol/L High 98-[address] [facility] Comment on above: Performed By: #### JO ANN RAÍMREZ, CHM7, HFP ####[facility] (DEFAULT)[address] [place] [address] CO2 [Moles/Vol] 21 mmol/L Normal 21-31 [facility] Comment on above: Performed By: #### M JO ANN BLOOM, CHM7, HFP ####[facility] (DEFAULT)[address] [place] [address] Creatinine [Mass/Vol] 1.14 mg/dL Normal 0.70-1.[address] [facility] Comment on above: Performed By: #### JO ANN RAMÍREZ, CHM7, HFP ####[facility] (DEFAULT)[address] [place] [address] GFR/1.73 sq M.predicted among non-blacks MDRD (S/P/Bld) [Vol rate/Area] 77 mL/min/{1.73_m2} Normal >=[address] [facility] Comment on above: Result Comment: Repo rted eGFR is based on the CKD-EPI 2020 equation using creatinine, age, and sex. Performed By: #### JO ANN RAMÍREZ, CHM7, HFP ####[facility] (DEFAULT)[address] [place] [address] Glucose [Mass/Vol] 107 mg/dL High 70-99 [facility] Comment on above: Performed By: #### JO ANN RAMÍREZ, CHM7, HFP ####U [facility] (DEFAULT)[address] [facility] [place] [address] Osmolality [Osmolality] 296 mosm/kg Normal 278-[address] [facility] Comment on above: Performed By: #### JO ANN RAMÍREZ, CHM7, HFP ####U [facility] (DEFAULT)[address] [facility] [place] [address] Potassium [Moles/Vol] 3.9 mmol/L Normal 3.5-5.[address] [facility] Comment on above: Performed By: #### JO ANN RAMÍREZ, CHM7, HFP ####[facility] (DEFAULT)[address] [place] [address] Sodium [Moles/Vol] 142 mmol/L Normal 135-145 [facility] Comment on above: Performed By: #### M GO, IPB, CHM7, HFP ####U [facility] (DEFAULT)[address] [place] [address] Urea nitrogen [Mass/Vol] 11 mg/dL Normal 7-[address] [facility] Comment on above: Performed By: #### M GO, IPB, CHM7, HFP ####[facility] (DEFAULT)[address] [place] [address] Urea nitrogen/Creatinine [Mass ratio] 10 mg/mg Normal [facility] Comment on above: Performed By: #### M MERLE, IPB, CHM7, HFP ####U [facility] (DEFAULT)[address] [place] [address] HEPATIC FUNCTION PANELon Albumin [Mass/Vol] 2.9 g/dL Low 3.5 - 5.0 g/dL [facility] ALP [Catalytic activity/Vol] 133 U/L High 32 - 126 U/L [facility] ALT [Catalytic activity/Vol] 23 U/L 10 - 52 U/L [facility] AST [Catalytic activity/Vol] 23 U/L 10 - 39 U/L [facility] Bilirubin [Mass/Vol] 0.8 mg/dL [facility]/dL [facility] Bilirubin.direct [Mass/Vol] 0.2 mg/dL NINF - 0.3 mg/dL [facility] Protein [Mass/Vol] 5.9 g/dL Low 6.4 - 8.3 g/dL [facility] Albumin [Mass/Vol] 2.9 g/dL Low 3.5-5.0 [facility] Comment on above: Performed By: #### M GO, IPB, CHM7, HFP ####U [facility] (DEFAULT)[address] [place] [address] ALP [Catalytic activity/Vol] 133 U/L High 32-[address] [facility] Comment on above: Performed By: #### M GO, IPB, CHM7, HFP ####[facility] (DEFAULT)[address] [place] [address] ALT [Catalytic activity/Vol] 23 U/L Normal 10-[address] [facility] Comment on above: Performed By: #### M GO, IPB, CHM7, HFP ####[facility] (DEFAULT)[address] [place] [address] AST [Catalytic activity/Vol] 23 U/L Normal 10-[address] [facility] Comment on above: Performed By: #### M GO, IPB, CHM7, HFP ####[facility] (DEFAULT)[address] [place] [address] Bilirubin [Mass/Vol] 0.8 mg/dL Normal <1.[address] [facility] Comment on above: Performed By: #### M GO, IPB, CHM7, HFP ####[facility] (DEFAULT)[address] [place] [address] Bilirubin.indirect [Mass/Vol] 0.2 mg/dL Normal <0.[address] [facility] Comment on above: Performed By: #### M GO, IPB, CHM7, HFP ####[facility] (DEFAULT)[address] [place] [address] Protein [Mass/Vol] 5.9 g/dL Low 6.4-8.3 [facility] Comment on above: Performed By: #### M GO, IPB, CHM7, HFP ####[facility] (DEFAULT)[address] [place] [address] MAGNESIUMon 09-08-2023 Interpretation and review of laboratory results Normal [facility] Magnesium [Mass/Vol] 1.8 mg/dL 1.6 - 2 .6 mg/dL [facility] Magnesium [Mass/Vol] 1.8 mg/dL Normal 1.6-2.[address] [facility] Comment on above: Performed By: #### M JO ANN BLOOM, CHM7, HFP ####[facility] (DEFAULT)[address] [place] [address] No Panel Informationon 09-08 Interpretation and review of laboratory results Abnormal [facility] PHOSPHATE, INORGANICon 09-08 Interpretation and review of laboratory results Normal [facility] Phosphate [Mass/Vol] 4.1 mg/dL 2.2 - 4 .6 mg/dL [facility] Phosphorous 4.1 mg/dL Normal 2.2-4.[address] [facility] Comment on above: Performed By: #### M JO ANN BLOOM, CHM7, HFP ####[facility] (DEFAULT)[address] [place] [address] TACROLIMUS LEVEL, TROUGH (DE E DRUG LEVEL)on 09-08-2023 Interpretation and review of laboratory results Normal [facility] Tacrolimus (Bld) [Mass/Vol] 8.5 ng/mL [facility] Tacrolimus, Trough 8.5 ng/mL Normal Bone Susana ow Transplant: 4.0-12.0, Therapeutic: 5.0-15.[address] [facility] Comment on above: Order Comment: Pleas e draw at specified interval PRIOR to dose. Do not hold dose to wait for level. Specimens batched twice per day, (M-) and once per day weekendsMethod performed is a chemiluminescent microparticle immunoasssay on the [employer] i2000.The range is based on experience at [facility] and users should be aware that target concentrations vary widely depending on concomitant therapy, time post-transplant, and desired degree of immunosuppression. Performed By: #### T ACRO ####[facility] (DEFAULT)[address] [place] [address] CBC,PLATELETSon 09-07-2023 Erythrocyte distribution width (RBC) [Ratio] 13.5 % 10.9 - 14.3 % [facility] Hematocrit (Bld) [Volume fraction] 37.1 % Low 39.6 - 48.8 % [facility] Hemoglobin (Bld) [Mass/Vol] 11.9 g/dL Low 13.4 - 16.8 g/dL [facility] Interpretation and review of laboratory results Abnormal [facility] MCH (RBC) [Entitic mass] 27.7 pg 26.1 - 33.3 pg [facility] MCHC (RBC) [Mass/Vol] 32.1 g/dL 31.9 - 36.5 g/dL [facility] MCV (RBC) [Entitic vol] 86.5 fL 79.0 - 94.5 fL [facility] Platelet mean volume (Bld) [Entitic vol] 9.6 fL 8.7 - 12.3 fL [facility] Platelets (Bld) [#/Vol] 176 10*3/uL 146 - 337 K/uL [facility] RBC (Bld) [#/Vol] 4.29 10*6/uL Low [facility] WBC (Bld) [#/Vol] 4.10 10*3/uL 3.73 - 10. 10 K/uL [facility] Hematocrit (Bld) [Volume fraction] 37.1 % Low 39.6-48.[address] [facility] Comment on above: Performed By: #### H [facility] ####[facility] (DEFAULT)[address] [place] [address] Hemoglobin (Bld) [Mass/Vol] 11.9 g/dL Low 13.4-16.[address] [facility] Comment on above: Performed By: #### H [facility] ####[facility] (DEFAULT)[address] [place] [address] MCV (RBC) [Entitic vol] 86.5 fL Normal 79.0-94.[address] [facility] Comment on above: Performed By: #### H [facility] ####[facility] (DEFAULT)[address] [place] [address] Mean Cell Hgb 27.7 pg Normal 26.1-33.[address] [facility] Comment on above: Performed By: #### H EMOGC ####[facility] (DEFAULT)[address] [place] [address] Mean Cell Hgb Conc 32.1 g/dL Normal 31.9-36.5 [facility] Comment on above: Performed By: #### H EMOGC ####[facility] (DEFAULT)[address] [place] [address] Platelet mean volume (Bld) [Entitic vol] 9.6 fL Normal 8.7-12.[address] [facility] Comment on above: Performed By: #### H EMOGC ####[facility] (DEFAULT)[address] [place] [address] Platelets (Bld) [#/Vol] 176 10*3/uL Normal 146-[address] [facility] Comment on above: Performed By: #### H EMOGC ####[facility] (DEFAULT)[address] [place] [address] RBC (Bld) [#/Vol] 4.29 10*6/uL Low 4.38-5.[address] [facility] Comment on above: Performed By: #### H EMOGC ####[facility] (DEFAULT)[address] [place] [address] RBC Distribution 13.5 % Normal 10.9-14.3 [facility] Comment on above: Performed By: #### H EMOGC ####[facility] (DEFAULT)[address] [place] [address] WBC (Bld) [#/Vol] 4.10 10*3/uL Normal 3.73-10.[address] [facility] Comment on above: Performed By: #### H EMOGC ####[facility] (DEFAULT)[address] [place] [address] CHEM 7 (LYTES,BUN,CREA,GLUC) on 09-07-2023 Anion gap [Moles/Vol] 13 mmol/L 7 - 17 mmol/L [facility] Chloride [Moles/Vol] 113 mmol/L High 98 - 10 8 mmol/L [facility] CO2 [Moles/Vol] 19 mmol/L Low 21 - 31 mmol/L [facility] Creatinine [Mass/Vol] 1.22 mg/dL 0.70 - 1.30 mg/dL [facility] eGFR, CKD-EPI, Male 72 - PINF [facility] Glucose [Mass/Vol] 107 mg/dL High 70 - 99 mg/dL [facility] Osmolality Calc [Osmolality] 295 [facility] Potassium [Moles/Vol] 3.9 mmol/L 3.5 - 5.0 mmol/L [facility] Sodium [Moles/Vol] 141 mmol/L 135 - 145 mmol/L [facility] Urea nitrogen [Mass/Vol] 13 mg/dL 7 - 25 mg/dL [facility] Urea nitrogen/Creatinine [Mass ratio] 11 mg/mg [facility] Anion gap [Moles/Vol] 13 mmol/L Normal 7-[address] [facility] Comment on above: Performed By: #### C HM7, IPB, MGO, HFP ####[facility] (DEFAULT)[address] [place] [address] Chloride [Moles/Vol] 113 mmol/L High 98-[address] [facility] Comment on above: Performed By: #### C HM7, IPB, MGO, HFP ####[facility] (DEFAULT)[address] [place] [address] CO2 [Moles/Vol] 19 mmol/L Low 21-31 [facility] Comment on above: Performed By: #### C HM7, IPB, MGO, HFP ####[facility] (DEFAULT)[address] [place] [address] Creatinine [Mass/Vol] 1.22 mg/dL Normal 0.70-1.[address] [facility] Comment on above: Performed By: #### C HM7, IPB, MGO, HFP ####U [facility] (DEFAULT)[address] [place] [address] GFR/1.73 sq M.predicted among non-blacks MDRD (S/P/Bld) [Vol rate/Area] 71 mL/min/{1.73_m2} Normal >=[address] [facility] Comment on above: Result Comment: Repo rted eGFR is based on the CKD-EPI 2020 equation using creatinine, age, and sex. Performed By: #### C HM7, IPB, MGO, HFP ####U [facility] (DEFAULT)[address] [place] [address] Glucose [Mass/Vol] 107 mg/dL High 70-99 [facility] Comment on above: Performed By: #### C HM7, IPB, MGO, HFP ####U [facility] (DEFAULT)[address] [facility] [place] [address] Osmolality [Osmolality] 295 mosm/kg Normal 278-[address] [facility] Comment on above: Performed By: #### C HM7, IPB, MGO, HFP ####U [facility] (DEFAULT)[address] [place] [address] Potassium [Moles/Vol] 3.9 mmol/L Normal 3.5-5.[address] [facility] Comment on above: Performed By: #### Chinedu HM7, IPB, MGO, HFP ####U [facility] (DEFAULT)[address] [facility] [place] [place] [address] Sodium [Moles/Vol] 141 mmol/L Normal 135-145 [facility] Comment on above: Performed By: #### C HM7, IPB, MGO, HFP ####U [facility] (DEFAULT)[address] [place] [address] Urea nitrogen [Mass/Vol] 13 mg/dL Normal 7-[address] [facility] Comment on above: Performed By: #### C HM7, IPB, MGO, HFP ####U [facility] (DEFAULT)[address] [place] [address] Urea nitrogen/Creatinine [Mass ratio] 11 mg/mg Normal [facility] Comment on above: Performed By: #### C HM7, IPB, MGO, HFP ####[facility] (DEFAULT)[address] [place] [address] HEPATIC FUNCTION PANELon Albumin [Mass/Vol] 2.9 g/dL Low 3.5 - 5.0 g/dL [facility] ALP [Catalytic activity/Vol] 111 U/L 32 - 126 U/L [facility] ALT [Catalytic activity/Vol] 18 U/L 10 - 52 U/L [facility] AST [Catalytic activity/Vol] 23 U/L 10 - 39 U/L [facility] Bilirubin [Mass/Vol] 0.8 mg/dL [facility] mg/dL [facility] Bilirubin.direct [Mass/Vol] 0.3 mg/dL High NINF - 0.3 mg/dL [facility] Protein [Mass/Vol] 6.0 g/dL Low 6.4 - 8.3 g/dL [facility] Albumin [Mass/Vol] 2.9 g/dL Low 3.5-5.0 [facility] Comment on above: Performed By: #### C HM7, IPB, MGO, HFP ####[facility] (DEFAULT)[address] [place] [address] ALP [Catalytic activity/Vol] 111 U/L Normal 32-[address] [facility] Comment on above: Performed By: #### C HM7, IPB, MGO, HFP ####[facility] (DEFAULT)[address] [place] [address] ALT [Catalytic activity/Vol] 18 U/L Normal 10-[address] [facility] Comment on above: Performed By: #### C HM7, IPB, MGO, HFP ####[facility] (DEFAULT)[address] [place] [address] AST [Catalytic activity/Vol] 23 U/L Normal 10-[address] [facility] Comment on above: Performed By: #### C HM7, IPB, MGO, HFP ####[facility] (DEFAULT)[address] [facility] [place] [address] Bilirubin [Mass/Vol] 0.8 mg/dL Normal <1.[address] [facility] Comment on above: Performed By: #### C HM7, IPB, MGO, HFP ####[facility] (DEFAULT)[address] [place] [address] Bilirubin.indirect [Mass/Vol] 0.3 mg/dL High <0.[address] [facility] Comment on above: Performed By: #### C HM7, IPB, MGO, HFP ####[facility] (DEFAULT)[address] [place] [address] Protein [Mass/Vol] 6.0 g/dL Low 6.4-8.3 [facility] Comment on above: Performed By: #### C HM7, IPB, MGO, HFP ####[facility] (DEFAULT)[address] [place] [address] MAGNESIUMon 09-07-2023 Interpretation and review of laboratory results Normal [facility] Magnesium [Mass/Vol] 1.7 mg/dL 1.6 - 2 .6 mg/dL [facility] Magnesium [Mass/Vol] 1.7 mg/dL Normal 1.6-2.[address] [facility] Comment on above: Performed By: #### C HM7, IPB, MGO, HFP ####[facility] (DEFAULT)[address] [place] [address] No Panel Informationon 09-07 Interpretation and review of laboratory results Abnormal [facility] PHOSPHATE, INORGANICon 09-07 Interpretation and review of laboratory results Normal [facility] Phosphate [Mass/Vol] 4.4 mg/dL 2.2 - 4 .6 mg/dL [facility] Phosphorous 4.4 mg/dL Normal 2.2-4.[address] [facility] Comment on above: Performed By: #### C HM7, IPB, MGO, HFP ####[facility] (DEFAULT)[address] [place] [address] TACROLIMUS LEVEL, TROUGH (DE E DRUG LEVEL)Ordered By: Elizabeth Maldonado on 09-07-2023 Interpretation and review of laboratory results Normal [facility] Tacrolimus (Bld) [Mass/Vol] 7.8 ng/mL [facility] TACROLIMUS LEVEL, TROUGH (DE E DRUG LEVEL)on 09-07-2023 Tacrolimus, Trough 7.8 ng/mL Normal Bone Susana ow Transplant: 4.0-12.0, Therapeutic: 5.0-15.[address] [facility] Comment on above: Order Comment: Pleas e draw at specified interval PRIOR to dose. Do not hold dose to wait for level. Specimens batched twice per day, (M-F) and once per day weekendsMethod performed is a chemiluminescent microparticle immunoasssay on the [employer] i2000.The range is based on experience at [facility] and users should be aware that target concentrations vary widely depending on concomitant therapy, time post-transplant, and desired degree of immunosuppression. Performed By: #### T ACRO ####[facility] (DEFAULT)[address] [place] [address] CBC,PLATELETSon 09-06-2023 Erythrocyte distribution width (RBC) [Ratio] 13.4 % 10.9 - 14.3 % [facility] Hematocrit (Bld) [Volume fraction] 38.4 % Low 39.6 - 48.8 % [facility] Hemoglobin (Bld) [Mass/Vol] 11.9 g/dL Low 13.4 - 16.8 g/dL [facility] Interpretation and review of laboratory results Abnormal [facility] MCH (RBC) [Entitic mass] 26.6 pg 26.1 - 33.3 pg [facility] MCHC (RBC) [Mass/Vol] 31.0 g/dL Low 31.9 - 36.5 g/dL [facility] MCV (RBC) [Entitic vol] 85.9 fL 79.0 - 94.5 fL [facility] Platelet mean volume (Bld) [Entitic vol] 9.7 fL 8.7 - 12.3 fL [facility] Platelets (Bld) [#/Vol] 181 10*3/uL 146 - 337 K/uL [facility] RBC (Bld) [#/Vol] 4.47 10*6/uL [facility] WBC (Bld) [#/Vol] 4.41 10*3/uL 3.73 - 10. 10 K/uL [facility] Hematocrit (Bld) [Volume fraction] 38.4 % Low 39.6-48.[address] [facility] Comment on above: Performed By: #### H [facility] ####[facility] (DEFAULT)[address] [place] [address] Hemoglobin (Bld) [Mass/Vol] 11.9 g/dL Low 13.4-16.[address] [facility] Comment on above: Performed By: #### H [facility] ####[facility] (DEFAULT)[address] [place] [address] MCV (RBC) [Entitic vol] 85.9 fL Normal 79.0-94.[address] [facility] Comment on above: Performed By: #### H [facility] ####[facility] (DEFAULT)[address] [place] [address] Mean Cell Hgb 26.6 pg Normal 26.1-33.[address] [facility] Comment on above: Performed By: #### H [facility] ####[facility] (DEFAULT)[address] [place] [address] Mean Cell Hgb Conc 31.0 g/dL Low 31.9-36.5 [facility] Comment on above: Performed By: #### H EMOGC ####[facility] (DEFAULT)[address] [place] [address] Platelet mean volume (Bld) [Entitic vol] 9.7 fL Normal 8.7-12.[address] [facility] Comment on above: Performed By: #### H EMOGC ####[facility] (DEFAULT)[address] [place] [address], [place] [address] Platelets (Bld) [#/Vol] 181 10*3/uL Normal 146-[address] [facility] Comment on above: Performed By: #### H EMO ####[facility] (DEFAULT)[address] [place] [address] RBC (Bld) [#/Vol] 4.47 10*6/uL Normal 4.38-5.[address] [facility] Comment on above: Performed By: #### H EMO ####[facility] (DEFAULT)[address] [place] [address] RBC Distribution 13.4 % Normal 10.9-14.3 [facility] Comment on above: Performed By: #### H EMOGC ####[facility] (DEFAULT)[address] [place] [address] WBC (Bld) [#/Vol] 4.41 10*3/uL Normal 3.73-10.[address] [facility] Comment on above: Performed By: #### H EMOGC ####[facility] (DEFAULT)[address] [place] [address] CHEM 7 (LYTES,BUN,CREA,GLUC) on 09-06-2023 Anion gap [Moles/Vol] 14 mmol/L 7 - 17 mmol/L [facility] Chloride [Moles/Vol] 109 mmol/L High 98 - 10 8 mmol/L [facility] CO2 [Moles/Vol] 19 mmol/L Low 21 - 31 mmol/L [facility] Creatinine [Mass/Vol] 1.26 mg/dL 0.70 - 1.30 mg/dL [facility] eGFR, CKD-EPI, [facility] 69 [facility] [Mass/Vol] 114 mg/dL High 70 - 99 mg/dL [facility] Osmolality Calc [Osmolality] 291 [facility] Potassium [Moles/Vol] 4.1 mmol/L 3.5 - 5.0 mmol/L [facility] Sodium [Moles/Vol] 138 mmol/L 135 - 145 mmol/L [facility] Urea nitrogen [Mass/Vol] 16 mg/dL 7 - 25 mg/dL [facility] Urea nitrogen/Creatinine [Mass ratio] 13 mg/mg [facility] Anion gap [Moles/Vol] 14 mmol/L Normal 7-[address] [facility] Comment on above: Performed By: #### NATHANIEL RAMÍREZ, HFP ####[facility] (DEFAULT)[address] [place] [address] Chloride [Moles/Vol] 109 mmol/L High 98-[address] [facility] Comment on above: Performed By: #### NATHANIEL RAMÍREZ, HFP ####[facility] (DEFAULT)[address] [place] [address] CO2 [Moles/Vol] 19 mmol/L Low 21-31 [facility] Comment on above: Performed By: #### NATHANIEL RAMÍREZ, HFP ####[facility] (DEFAULT)[address] [place] [address] Creatinine [Mass/Vol] 1.26 mg/dL Normal 0.70-1.[address] [facility] Comment on above: Performed By: #### NATHANIEL RAMÍREZ, HFP ####[facility] (DEFAULT)[address] [place] [address] GFR/1.73 sq M.predicted among non-blacks MDRD (S/P/Bld) [Vol rate/Area] 69 mL/min/{1.73_m2} Normal >=[address] [facility] Comment on above: Result Comment: Repo rted eGFR is based on the CKD-EPI 2020 equation using creatinine, age, and sex. Performed By: #### NATHANIEL RAMÍREZ, HFP ####[facility] (DEFAULT)[address] [place] [address] Glucose [Mass/Vol] 114 mg/dL High 70-99 [facility] Comment on above: Performed By: #### NATHANIEL RAMÍREZ, HFP ####[facility] (DEFAULT)[address] [place] [address] Osmolality [Osmolality] 291 mosm/kg Normal 278-[address] [facility] Comment on above: Performed By: #### NATHANIEL RAMÍREZ, HFP ####U [facility] (DEFAULT)[address] [place] [address] Potassium [Moles/Vol] 4.1 mmol/L Normal 3.5-5.[address] [facility] Comment on above: Performed By: #### NATHANIEL RAMÍREZ, HFP ####[facility] (DEFAULT)[address] [place] [address] Sodium [Moles/Vol] 138 mmol/L Normal 135-145 [facility] Comment on above: Performed By: #### NATHANIEL RAMÍREZ, HFP ####U [facility] (DEFAULT)[address] [place] [address] Urea nitrogen [Mass/Vol] 16 mg/dL Normal 7-[address] [facility] Comment on above: Performed By: #### NATHANIEL RAMÍREZ, HFP ####[facility] (DEFAULT)[address] [place] [address] Urea nitrogen/Creatinine [Mass ratio] 13 mg/mg Normal [facility] Comment on above: Performed By: #### M NATHANIEL BLOOM, HFP ####U [facility] (DEFAULT)[address] [place] [address] HEPATIC FUNCTION PANELon Albumin [Mass/Vol] 3.0 g/dL Low 3.5 - 5.0 g/dL [facility] ALP [Catalytic activity/Vol] 115 U/L 32 - 126 U/L [facility] ALT [Catalytic activity/Vol] 25 U/L 10 - 52 U/L [facility] AST [Catalytic activity/Vol] 31 U/L 10 - 39 U/L [facility] Bilirubin [Mass/Vol] 1.0 mg/dL NINF - 1.5 mg/dL [facility] Bilirubin.direct [Mass/Vol] 0.3 mg/dL High NINF - 0.3 mg/dL [facility] Protein [Mass/Vol] 6.3 g/dL Low 6.4 - 8.3 g/dL [facility] Albumin [Mass/Vol] 3.0 g/dL Low 3.5-5.0 [facility] Comment on above: Performed By: #### M NATHANIEL BLOOM, HFP ####U [facility] (DEFAULT)[address] [place] [address] ALP [Catalytic activity/Vol] 115 U/L Normal 32-[address] [facility] Comment on above: Performed By: #### M NATHANIEL BLOOM, HFP ####U [facility] (DEFAULT)[address] [place] [address] ALT [Catalytic activity/Vol] 25 U/L Normal 10-[address] [facility] Comment on above: Performed By: #### M TJ BLOOM7, HFP ####U [facility] (DEFAULT)[address] [place] [address] AST [Catalytic activity/Vol] 31 U/L Normal 10-[address] [facility] Comment on above: Performed By: #### M GO, CHM7, HFP ####[facility] (DEFAULT)[address] [place] [address] Bilirubin [Mass/Vol] 1.0 mg/dL Normal <1.[address] [facility] Comment on above: Performed By: #### NATHANIEL RAMÍREZ, HFP ####[facility] (DEFAULT)[address] [place] [address] Bilirubin.indirect [Mass/Vol] 0.3 mg/dL High <0.[address] [facility] Comment on above: Performed By: #### NATHANIEL RAMÍREZ, HFP ####[facility] (DEFAULT)[address] [place] [address] Protein [Mass/Vol] 6.3 g/dL Low 6.4-8.3 [facility] Comment on above: Performed By: #### NATHANIEL RAMÍREZ, HFP ####[facility] (DEFAULT)[address] [place] [address] MAGNESIUMon 09-06-2023 Interpretation and review of laboratory results Normal [facility] Magnesium [Mass/Vol] 2.0 mg/dL 1.6 - 2 .6 mg/dL [facility] Magnesium [Mass/Vol] 2.0 mg/dL Normal 1.6-2.[address] [facility] Comment on above: Performed By: #### NATHANIEL RAMÍREZ, HFP ####[facility] (DEFAULT)[address] [place] [id number] No Panel Informationon 09-06 Interpretation and review of laboratory results Abnormal [facility] TACROLIMUS LEVEL, TROUGH (DE E DRUG LEVEL)on 09-06-2023 Interpretation and review of laboratory results Normal [facility] Tacrolimus (Bld) [Mass/Vol] 6.7 ng/mL [facility] Tacrolimus, Trough 6.7 ng/mL Normal Bone Susana ow Transplant: 4.0-12.0, Therapeutic: 5.0-15.[address] [facility] Comment on above: Order Comment: Dilan gregory draw at specified interval PRIOR to dose. Do not hold dose to wait for level. Specimens batched twice per day, (M-F) and once per day weekendsMethod performed is a chemiluminescent microparticle immunoasssay on the [employer] i2000.The range is based on experience at [facility] and users should be aware that target concentrations vary widely depending on concomitant therapy, time post-transplant, and desired degree of immunosuppression. Performed By: #### T ACRO ####[facility] (DEFAULT)[address] [place] [address] CBC,PLATELETSon 09-05-2023 Erythrocyte distribution width (RBC) [Ratio] 13.5 % 10.9 - 14.3 % [facility] Hematocrit (Bld) [Volume fraction] 35.6 % Low 39.6 - 48.8 % [facility] Hemoglobin (Bld) [Mass/Vol] 11.4 g/dL Low 13.4 - 16.8 g/dL [facility] Interpretation and review of laboratory results Abnormal [facility] MCH (RBC) [Entitic mass] 27.5 pg 26.1 - 33.3 pg [facility] MCHC (RBC) [Mass/Vol] 32.0 g/dL 31.9 - 36.5 g/dL [facility] MCV (RBC) [Entitic vol] 86.0 fL 79.0 - 94.5 fL [facility] Platelet mean volume (Bld) [Entitic vol] 10.0 fL 8.7 - 12.3 fL [facility] Platelets (Bld) [#/Vol] 170 10*3/uL 146 - 337 K/uL [facility] RBC (Bld) [#/Vol] 4.14 10*6/uL Low [facility] WBC (Bld) [#/Vol] 4.24 10*3/uL 3.73 - 10. 10 K/uL [facility] Hematocrit (Bld) [Volume fraction] 35.6 % Low 39.6-48.[address] [facility] Comment on above: Performed By: #### H EMOGC ####[facility] (DEFAULT)[address] [place] [address] Hemoglobin (Bld) [Mass/Vol] 11.4 g/dL Low 13.4-16.[address] [facility] Comment on above: Performed By: #### H EMOGC ####[facility] (DEFAULT)[address] [facility] [place] [address] MCV (RBC) [Entitic vol] 86.0 fL Normal 79.0-94.[address] [facility] Comment on above: Performed By: #### H EMOGC ####[facility] (DEFAULT)[address] [place] [address] Mean Cell Hgb 27.5 pg Normal 26.1-33.[address] [facility] Comment on above: Performed By: #### H EMOGC ####[facility] (DEFAULT)[address] [place] [address] Mean Cell Hgb Conc 32.0 g/dL Normal 31.9-36.5 [facility] Comment on above: Performed By: #### H EMOGC ####[facility] (DEFAULT)[address] [facility] [place] [address] Platelet mean volume (Bld) [Entitic vol] 10.0 fL Normal 8.7-12.[address] [facility] Comment on above: Performed By: #### H EMOGC ####[facility] (DEFAULT)[address] [facility] [place] [address] Platelets (Bld) [#/Vol] 170 10*3/uL Normal 146-[address] [facility] Comment on above: Performed By: #### H EMOGC ####[facility] (DEFAULT)[address] [place] [address] RBC (Bld) [#/Vol] 4.14 10*6/uL Low 4.38-5.[address] [facility] Comment on above: Performed By: #### H [facility] ####[facility] (DEFAULT)[address] [place] [address] RBC Distribution 13.5 % Normal 10.9-14.3 [facility] Comment on above: Performed By: #### H [facility] ####[facility] (DEFAULT)[address] [place] [address] WBC (Bld) [#/Vol] 4.24 10*3/uL Normal 3.73-10.[address] [facility] Comment on above: Performed By: #### H [facility] ####[facility] (DEFAULT)[address] [place] [address] CHEM 7 (LYTES,BUN,CREA,GLUC) on 09-05-2023 Anion gap [Moles/Vol] 12 mmol/L 7 - 17 mmol/L [facility] Chloride [Moles/Vol] 107 mmol/L 98 - 10 8 mmol/L [facility] CO2 [Moles/Vol] 20 mmol/L Low 21 - 31 mmol/L [facility] Creatinine [Mass/Vol] 1.43 mg/dL High 0.70 - 1.30 mg/dL [facility] eGFR, CKD-EPI, Male 60 Low - PINF [facility] Glucose [Mass/Vol] 111 mg/dL High 70 - 99 mg/dL [facility] Osmolality Calc [Osmolality] 286 [facility] Potassium [Moles/Vol] 4.2 mmol/L 3.5 - 5.0 mmol/L [facility] Sodium [Moles/Vol] 135 mmol/L 135 - 145 mmol/L [facility] Urea nitrogen [Mass/Vol] 18 mg/dL 7 - 25 mg/dL [facility] Urea nitrogen/Creatinine [Mass ratio] 13 [facility] Anion gap [Moles/Vol] 12 mmol/L Normal 7-[address] [facility] Comment on above: Performed By: #### H FP, CHM7, MGO ####[facility] (DEFAULT)[address] [place] [address] Chloride [Moles/Vol] 107 mmol/L Normal 98-[address] [facility] Comment on above: Performed By: #### H FP, CHM7, MGO ####[facility] (DEFAULT)[address] [place] [address] CO2 [Moles/Vol] 20 mmol/L Low 21-31 [facility] Comment on above: Performed By: #### H FP, CHM7, MGO ####[facility] (DEFAULT)[address] [place] [address] Creatinine [Mass/Vol] 1.43 mg/dL High 0.70-1.[address] [facility] Comment on above: Performed By: #### H FP, CHM7, MGO ####[facility] (DEFAULT)[address] [place] [address] GFR/1.73 sq M.predicted among non-blacks MDRD (S/P/Bld) [Vol rate/Area] 59 mL/min/{1.73_m2} Low >=[address] [facility] Comment on above: Result Comment: Repo rted eGFR is based on the CKD-EPI 2020 equation using creatinine, age, and sex. Performed By: #### H FP, CHM7, MGO ####[facility] (DEFAULT)[address] [place] [address] Glucose [Mass/Vol] 111 mg/dL High 70-99 [facility] Comment on above: Performed By: #### H FP, CHM7, MGO ####[facility] (DEFAULT)[address] [place] [address] Osmolality [Osmolality] 286 mosm/kg Normal 278-[address] [facility] Comment on above: Performed By: #### H FP, CHM7, MGO ####[facility] (DEFAULT)[address] [place] [address] Potassium [Moles/Vol] 4.2 mmol/L Normal 3.5-5.[address] [facility] Comment on above: Performed By: #### H FP, CHM7, MGO ####U [facility] (DEFAULT)[address] [place] [address] Sodium [Moles/Vol] 135 mmol/L Normal 135-145 [facility] Comment on above: Performed By: #### H FP, CHM7, MGO ####U [facility] (DEFAULT)[address] [place] [address] Urea nitrogen [Mass/Vol] 18 mg/dL Normal 7-[address] [facility] Comment on above: Performed By: #### H FP, CHM7, MGO ####[facility] (DEFAULT)[address] [place] [address] Urea nitrogen/Creatinine [Mass ratio] 13 mg/mg Normal [facility] Comment on above: Performed By: #### H FP, CHM7, MGO ####[facility] (DEFAULT)[address] [place] [address] CONTINUOUS CARDIAC MONITORIN G STRIPon 09-05-2023 [facility] HEPATIC FUNCTION PANELon Albumin [Mass/Vol] 2.8 g/dL Low 3.5 - 5.0 g/dL [facility] ALP [Catalytic activity/Vol] 103 U/L 32 - 126 U/L [facility] ALT [Catalytic activity/Vol] 26 U/L 10 - 52 U/L [facility] AST [Catalytic activity/Vol] 38 U/L 10 - 39 U/L [facility] Bilirubin [Mass/Vol] 0.9 mg/dL NINF - 1.5 mg/dL [facility] Bilirubin.direct [Mass/Vol] 0.1 mg/dL NINF - 0.3 mg/dL [facility] Protein [Mass/Vol] 6.1 g/dL Low 6.4 - 8.3 g/dL [facility] Albumin [Mass/Vol] 2.8 g/dL Low 3.5-5.0 [facility] Comment on above: Performed By: #### H FP, CHM7, MGO ####[facility] (DEFAULT)[address] [place] [address] ALP [Catalytic activity/Vol] 103 U/L Normal 32-[address] [facility] Comment on above: Performed By: #### H FP, CHM7, MGO ####[facility] (DEFAULT)[address] [place] [address] ALT [Catalytic activity/Vol] 26 U/L Normal 10-[address] [facility] Comment on above: Performed By: #### H FP, CHM7, MGO ####[facility] (DEFAULT)[address] [place] [address] AST [Catalytic activity/Vol] 38 U/L Normal 10-[address] [facility] Comment on above: Performed By: #### H FP, CHM7, MGO ####[facility] (DEFAULT)[address] [place] [address] Bilirubin [Mass/Vol] 0.9 mg/dL Normal <1.[address] [facility] Comment on above: Performed By: #### H FP, CHM7, MGO ####[facility] (DEFAULT)[address] [place] [address] Bilirubin.indirect [Mass/Vol] 0.1 mg/dL Normal <0.[address] [facility] Comment on above: Performed By: #### H FP, CHM7, MGO ####[facility] (DEFAULT)[address] [place] [address] Protein [Mass/Vol] 6.1 g/dL Low 6.4-8.3 [facility] Comment on above: Performed By: #### H TJ MONCADA7, MGO ####[facility] (DEFAULT)[address] [place] [address] HISTOPLASMA ANTIGEN, FLUIDon 09-05-2023 FH SOURCE BAL RML [facility] Histo FLD interpretation Negative [facility] Histoplasma Antigen, FLUID Not detected ng/mL [facility] HISTOPLASMA CAPSULATUM/BLAST OMYCES SPECIES,PCR FLUIDon 09-05-2023 HISTO/BLASTO RESULT Negative Not Applicable [facility] Specimen source Nom (Unsp spec) BAL RML [facility] IMMUNOPHENOTYPING, TISSUE/FL UIDon 09-05-2023 BKR DX CODE Use Ordering [facility] Flow Interpretation See Comment [facility] Flow Interpreted by: Yossi Perla MD, PhD [facility] MAGNESIUMon 09-05-2023 Interpretation and review of laboratory results Normal [facility] Magnesium [Mass/Vol] 1.7 mg/dL 1.6 - 2 .6 mg/dL [facility] Magnesium [Mass/Vol] 1.7 mg/dL Normal 1.6-2.[address] [facility] Comment on above: Performed By: #### H HELEN MONCADAMJessica, MGO ####[facility] (DEFAULT)[address] [place] [address] No Panel Informationon 09-05 Interpretation and review of laboratory results Abnormal [facility] TACROLIMUS LEVEL, TROUGH (DE E DRUG LEVEL)Ordered By: Raymundo Mehta on 09-05-2023 Interpretation and review of laboratory results Normal [facility] Tacrolimus (Bld) [Mass/Vol] 5.3 ng/mL [facility] TACROLIMUS LEVEL, TROUGH (DE E DRUG LEVEL)on 09-05-2023 Tacrolimus, Trough 5.3 ng/mL Normal Bone Susana ow Transplant: 4.0-12.0, Therapeutic: 5.0-15.[address] [facility] Comment on above: Order Comment: Dilan gregory draw at specified interval PRIOR to dose. Do not hold dose to wait for level. Specimens batched twice per day, (M-F) and once per day weekendsMethod performed is a chemiluminescent microparticle immunoasssay on the [employer] i2000.The range is based on experience at [facility] and users should be aware that target concentrations vary widely depending on concomitant therapy, time post-transplant, and desired degree of immunosuppression. Performed By: #### T ACRO ####[facility] (DEFAULT)[address] [place] [address] ARTERIAL BLOOD GAS (FULL GOSS EL)on 09-04-2023 Base excess Calc (Bld) [Moles/Vol] -1.2000 mmol/L -3.0 - 3.0 mmol/L [facility] Calcium.ionized (Bld) [Mass/Vol] 4.79 mg/dL 4.60 - 5.30 mg/dL [facility] Carboxyhemoglobin (Bld) [Mass fraction] 0.7 % NINF - 1.5 % [facility] CO2 (Bld) [Partial pressure] 30 mm[Hg] Low [facility] Glucose [Mass/Vol] 159 mg/dL High 70 - 99 mg/dL [facility] HCO3 (Bld) [Moles/Vol] 22 mmol/L 22 - 28 mmol/L [facility] Hematocrit (Bld) [Volume fraction] 38.0 % Low 40.2 - 50.4 % [facility] Hemoglobin (Bld) [Mass/Vol] 12.6 g/dL Low 13.4 - 16.8 g/dL [facility] Interpretation and review of laboratory results Abnormal [facility] Lactate [Moles/Vol] 2.0 mmol/L High 0.5 - 1. 6 mmol/L [facility] Methemoglobin (Bld) [Mass fraction] 0.0 % NINF - 1.5 % [facility] Oxygen (Bld) [Partial pressure] 62 mm[Hg] Low [facility] Oxygen saturation in Blood 92 % Low 94 - 98 % [facility] Oxyhemoglobin 91 % Low 94 - 98 % [facility] pH (Bld) 7.48 [pH] High 7.35 - 7.45 [facility] Potassium [Moles/Vol] 4.2 mmol/L 3.5 - 5.0 mmol/L [facility] Sodium [Moles/Vol] 130 mmol/L Low 135 - 145 mmol/L [facility] Specimen source Nom (Unsp spec) Arterial [facility] Base Excess -1.2 mmol/L Normal -3.0-3.[address] [facility] Comment on above: Performed By: #### Vale UNDERWOOD ####[facility] (DEFAULT)[address] [place] [address] Carboxyhemoglobin 0.7 % Normal <=1.5 [facility] Comment on above: Performed By: #### Vale UNDERWOOD ####[facility] (DEFAULT)[address] [place] [address] Glucose [Mass/Vol] 159 mg/dL High 70-99 [facility] Comment on above: Performed By: #### G YASMINE ####[facility] (DEFAULT)[address] [place] [address] HCO3 (Bld) [Moles/Vol] 22 mmol/L Normal 22-[address] [facility] Comment on above: Performed By: #### Vale UNDERWOOD ####[facility] (DEFAULT)[address] [place] [address] Hematocrit (Bld) [Volume fraction] 38.0 % Low 40.2-50.[address] [facility] Comment on above: Performed By: #### Vale ASALL ####[facility] (DEFAULT)[address] [place] [address] Hemoglobin (Bld) [Mass/Vol] 12.6 g/dL Low 13.4-16.[address] [facility] Comment on above: Performed By: #### Vale UNDERWOOD ####[facility] (DEFAULT)[address] [place] [address] Ionized Calcium, Whole Blood 4.79 mg/dL Normal 4.60-5.[address] [facility] Comment on above: Performed By: #### Vale UNDERWOOD ####[facility] (DEFAULT)[address] [place] [address], [place] [address] Lactate, Whole Blood 2.0 mmol/L High 0.5-1.[address] [facility] Comment on above: Performed By: #### Vale UNDERWOOD ####[facility] (DEFAULT)[address] [place] [address], [place] [address] Methemoglobin 0.0 % Normal <=1.[address] [facility] Comment on above: Performed By: #### Vale UNDERWOOD ####[facility] (DEFAULT)[address] [place] [address], [place] [address] Oxyhemoglobin 91 % Low 94-[address] [facility] Comment on above: Performed By: #### Vale UNDERWOOD ####[facility] (DEFAULT)[address] [place] [address], [place] [address] pCO2 30 mm Hg Low 32-[address] [facility] Comment on above: Performed By: #### Vale UNDERWOOD ####[facility] (DEFAULT)[address] [place] [address], [place] [address] pH (Bld) 7.48 [pH] High 7.35-7.[address] [facility] Comment on above: Performed By: #### Vale UNDERWOOD ####[facility] (DEFAULT)[address] [place] [address], [place] [address] pO2 62 mm Hg Low 83-[address] [facility] Comment on above: Performed By: #### Vale UNDERWOOD ####[facility] (DEFAULT)[address] [place] [address] Potassium [Moles/Vol] 4.2 mmol/L Normal 3.5-5.[address] [facility] Comment on above: Performed By: #### G YASMINE ####[facility] (DEFAULT)[address] [place] [address] sO2 92 % Low 94-[address] [facility] Comment on above: Performed By: #### G YASMINE ####[facility] (DEFAULT)[address] [place] [address] Sodium [Moles/Vol] 130 mmol/L Low 135-145 [facility] Comment on above: Performed By: #### G YASMINE ####[facility] ([facility] [place] [address], [place] [address] Specimen type Nom (Spec) Arterial Normal [facility] Comment on above: Performed By: #### Vale UNDERWOOD ####[facility] (DEFAULT)[address] [place] [address] Bacteria identified Respirat ory culture Nom (Unsp spec)on 09-04-2023 Bacteria identified Cx Nom (Unsp spec) NO GROWTH DAY 2 OF 2 [facility] Microscopic observation Other stain Nom (Unsp spec) Cytocentrifuge preparation [facility] Microscopic observation Other stain Nom (Unsp spec) Neutrophils, Rare [facility] Microscopic observation Other stain Nom (Unsp spec) Red Blood Cells Present [facility] Microscopic observation Other stain Nom (Unsp spec) No organisms seen [facility] Bacteria identified Respirat ory culture Nom (Unsp spec)Ordered By: Jose Salgado on 09-04-2023 Bacteria identified Cx Nom (Unsp spec) NO GROWTH DAY 2 OF 2 [facility] Microscopic observation Other stain Nom (Unsp spec) Cytocentrifuge preparation [facility] Microscopic observation Other stain Nom (Unsp spec) Neutrophils, Moderate [facility] Microscopic observation Other stain Nom (Unsp spec) Red Blood Cells Present [facility] Microscopic observation Other stain Nom (Unsp spec) No organisms seen [facility] CBC,PLATELETSon 09-04-2023 Erythrocyte distribution width (RBC) [Ratio] 13.2 % 10.9 - 14.3 % [facility] Hematocrit (Bld) [Volume fraction] 38.7 % Low 39.6 - 48.8 % [facility] Hemoglobin (Bld) [Mass/Vol] 12.3 g/dL Low 13.4 - 16.8 g/dL [facility] Interpretation and review of laboratory results Abnormal [facility] MCH (RBC) [Entitic mass] 27.9 pg 26.1 - 33.3 pg [facility] MCHC (RBC) [Mass/Vol] 31.8 g/dL Low 31.9 - 36.5 g/dL [facility] MCV (RBC) [Entitic vol] 87.8 fL 79.0 - 94.5 fL [facility] Platelet mean volume (Bld) [Entitic vol] 9.8 fL 8.7 - 12.3 fL [facility] Platelets (Bld) [#/Vol] 173 10*3/uL 146 - 337 K/uL [facility] RBC (Bld) [#/Vol] 4.41 10*6/uL [facility] WBC (Bld) [#/Vol] 4.57 10*3/uL 3.73 - 10. 10 K/uL [facility] Hematocrit (Bld) [Volume fraction] 38.7 % Low 39.6-48.[address] [facility] Comment on above: Performed By: #### H [facility] ####[facility] (DEFAULT)[address] [place] [address] Hemoglobin (Bld) [Mass/Vol] 12.3 g/dL Low 13.4-16.[address] [facility] Comment on above: Performed By: #### H [facility] ####[facility] (DEFAULT)[address] [place] [address] MCV (RBC) [Entitic vol] 87.8 fL Normal 79.0-94.[address] [facility] Comment on above: Performed By: #### H EMOGC ####[facility] (DEFAULT)[address] [facility] [place] [address] Mean Cell Hgb 27.9 pg Normal 26.1-33.[address] [facility] Comment on above: Performed By: #### H EMOGC ####[facility] (DEFAULT)[address] [place] [address] Mean Cell Hgb Conc 31.8 g/dL Low 31.9-36.5 [facility] Comment on above: Performed By: #### H EMOGC ####U [facility] (DEFAULT)[address] [place] [address] Platelet mean volume (Bld) [Entitic vol] 9.8 fL Normal 8.7-12.[address] [facility] Comment on above: Performed By: #### H EMOGC ####[facility] (DEFAULT)[address] [place] [address] Platelets (Bld) [#/Vol] 173 10*3/uL Normal 146-[address] [facility] Comment on above: Performed By: #### H EMOGC ####[facility] (DEFAULT)[address] [place] [address] RBC (Bld) [#/Vol] 4.41 10*6/uL Normal 4.38-5.[address] [facility] Comment on above: Performed By: #### H EMOGC ####[facility] (DEFAULT)[address] [place] [address] RBC Distribution 13.2 % Normal 10.9-14.3 [facility] Comment on above: Performed By: #### H EMOGC ####[facility] (DEFAULT)[address] [place] [address] WBC (Bld) [#/Vol] 4.57 10*3/uL Normal 3.73-10.[address] [facility] Comment on above: Performed By: #### H [facility] ####[facility] (DEFAULT)[address] [place] [address] CHEM 7 (LYTES,BUN,CREA,GLUC) on 09-04-2023 Anion gap [Moles/Vol] 16 mmol/L 7 - 17 mmol/L [facility] Chloride [Moles/Vol] 104 mmol/L 98 - 10 8 mmol/L [facility] CO2 [Moles/Vol] 18 mmol/L Low 21 - 31 mmol/L [facility] Creatinine [Mass/Vol] 1.22 mg/dL 0.70 - 1.30 mg/dL [facility] eGFR, CKD-EPI, Male 71 - PINF [facility] Glucose [Mass/Vol] 124 mg/dL High 70 - 99 mg/dL [facility] Osmolality Calc [Osmolality] 284 [facility] Potassium [Moles/Vol] 3.9 mmol/L 3.5 - 5.0 mmol/L [facility] Sodium [Moles/Vol] 134 mmol/L Low 135 - 145 mmol/L [facility] Urea nitrogen [Mass/Vol] 15 mg/dL 7 - 25 mg/dL [facility] Urea nitrogen/Creatinine [Mass ratio] 12 mg/mg [facility] Anion gap [Moles/Vol] 16 mmol/L Normal 7-[address] [facility] Comment on above: Performed By: #### M NATHANIEL BLOOM, HFP ####[facility] (DEFAULT)[address] [place] [address] Chloride [Moles/Vol] 104 mmol/L Normal 98-[address] [facility] Comment on above: Performed By: #### TJ RAMÍREZ7, HFP ####[facility] (DEFAULT)[address] [place] [address] CO2 [Moles/Vol] 18 mmol/L Low 21-31 [facility] Comment on above: Performed By: #### NATHANIEL RAMÍREZ, HFP ####[facility] (DEFAULT)[address] [place] [address] Creatinine [Mass/Vol] 1.22 mg/dL Normal 0.70-1.[address] [facility] Comment on above: Performed By: #### NATHANIEL RAMÍREZ, HFP ####[facility] (DEFAULT)[address] [place] [address] GFR/1.73 sq M.predicted among non-blacks MDRD (S/P/Bld) [Vol rate/Area] 71 mL/min/{1.73_m2} Normal >=[address] [facility] Comment on above: Result Comment: Repo rted eGFR is based on the CKD-EPI 2020 equation using creatinine, age, and sex. Performed By: #### NATHANIEL RAMÍREZ, HFP ####[facility] (DEFAULT)[address] [place] [address], [place] [address] Glucose [Mass/Vol] 124 mg/dL High 70-99 [facility] Comment on above: Performed By: #### NATHANIEL RAMÍREZ, HFP ####[facility] (DEFAULT)[address] [place] [address] Osmolality [Osmolality] 284 mosm/kg Normal 278-[address] [facility] Comment on above: Performed By: #### NATHANIEL RAMÍREZ, HFP ####[facility] (DEFAULT)[address] [place] [address] Potassium [Moles/Vol] 3.9 mmol/L Normal 3.5-5.[address] [facility] Comment on above: Performed By: #### NATHANIEL RAMÍREZ, HFP ####[facility] (DEFAULT)[address] [place] [address] Sodium [Moles/Vol] 134 mmol/L Low 135-145 [facility] Comment on above: Performed By: #### NATHANIEL RAMÍREZ, HFP ####[facility] (DEFAULT)[address] [place] [address] Urea nitrogen [Mass/Vol] 15 mg/dL Normal 7-[address] [facility] Comment on above: Performed By: #### M TJ BLOOM7, HFP ####[facility] (DEFAULT)[address] [place] [address] Urea nitrogen/Creatinine [Mass ratio] 12 mg/mg Normal [facility] Comment on above: Performed By: #### M NATHANIEL BLOOM, HFP ####[facility] (DEFAULT)[address] [place] [address] CMV PCR,FLUIDS,URINE,EYE ETC on 09-04-2023 Specimen source Nom (Unsp spec) BAL LLL [facility] Specimen source Nom (Unsp spec) BAL RML [facility] HEPATIC FUNCTION PANELon Albumin [Mass/Vol] 3.0 g/dL Low 3.5 - 5.0 g/dL [facility] ALP [Catalytic activity/Vol] 112 U/L 32 - 126 U/L [facility] ALT [Catalytic activity/Vol] 22 U/L 10 - 52 U/L [facility] AST [Catalytic activity/Vol] 30 U/L 10 - 39 U/L [facility] Bilirubin [Mass/Vol] 1.2 mg/dL NINF - 1.5 mg/dL [facility] Bilirubin.direct [Mass/Vol] 0.4 mg/dL High NINF - 0.3 mg/dL [facility] Protein [Mass/Vol] 6.4 g/dL 6.4 - 8.3 g/dL [facility] Albumin [Mass/Vol] 3.0 g/dL Low 3.5-5.0 [facility] Comment on above: Performed By: #### M TJ BLOOM7, HFP ####[facility] (DEFAULT)[address] [place] [address] ALP [Catalytic activity/Vol] 112 U/L Normal 32-[address] [facility] Comment on above: Performed By: #### NATHANIEL RAMÍREZ, HFP ####[facility] (DEFAULT)[address] [place] [address] ALT [Catalytic activity/Vol] 22 U/L Normal 10-[address] [facility] Comment on above: Performed By: #### NATHANIEL RAMÍREZ, HFP ####[facility] (DEFAULT)[address] [place] [address] AST [Catalytic activity/Vol] 30 U/L Normal 10-[address] [facility] Comment on above: Performed By: #### NATHANIEL RAMÍREZ, HFP ####[facility] (DEFAULT)[address] [place] [address] Bilirubin [Mass/Vol] 1.2 mg/dL Normal <1.[address] [facility] Comment on above: Performed By: #### NATHANIEL RAMÍREZ, HFP ####[facility] (DEFAULT)[address] [place] [address] Bilirubin.indirect [Mass/Vol] 0.4 mg/dL High <0.[address] [facility] Comment on above: Performed By: #### NATHANIEL RAMÍREZ, HFP ####[facility] (DEFAULT)[address] [place] [address] Protein [Mass/Vol] 6.4 g/dL Normal 6.4-8.3 [facility] Comment on above: Performed By: #### NATHANIEL RAMÍREZ, HFP ####[facility] (DEFAULT)[address] [place] [address] LEGIONELLA PCRon 09-04-2023 Legionella sp rRNA Probe Ql (Unsp spec) Negative Not Applicable [facility] Specimen source Nom (Unsp spec) BAL RML [facility] Laboratory - Microbiology an d Antimicrobial susceptibilityon 09-04-2023 CMV DNA ESTELITA+probe Ql (Unsp spec) Negative Negative [facility] MAGNESIUMon 09-04-2023 Magnesium [Mass/Vol] 1.4 mg/dL Low 1.6 - 2 .6 mg/dL [facility] Magnesium [Mass/Vol] 1.4 mg/dL Low 1.6-2.[address] [facility] Comment on above: Performed By: #### M , CHM7, HFP ####[facility] (DEFAULT)[address] [place] [address] No Panel Informationon 09-04 Annotation comment [Interpretation] Narrative DNR [facility] PN Report Status DNR [facility] Pneumocystis jiroveci,PCR result Negative Not Applicable [facility] Interpretation and review of laboratory results Abnormal [facility] PNEUMOCYSTIS JIROVECI,PCRon 09-04-2023 Specimen source Nom (Unsp spec) BAL LLL [facility] Specimen source Nom (Unsp spec) BAL RML [facility] Portable XR Chest Viewson RADIOLOGY RADIOLOGY [facility] Radiology Study observation (narrative) [facility] Portable XR Chest ViewsOrder ed By: Joanie Nugent on 09-04-2023 [facility] Work Phone: TACROLIMUS LEVEL, TROUGH (DE E DRUG LEVEL)on 09-04-2023 Interpretation and review of laboratory results Abnormal [facility] Tacrolimus (Bld) [Mass/Vol] 3.6 ng/mL Low [facility] Tacrolimus, Trough 3.6 ng/mL Low Bone Susana ow Transplant: 4.0-12.0, Therapeutic: 5.0-15.[address] [facility] Comment on above: Order Comment: Pleas e draw at specified interval PRIOR to dose. Do not hold dose to wait for level. Specimens batched twice per day, (M-F) and once per day weekendsMethod performed is a chemiluminescent microparticle immunoasssay on the [employer] i2000.The range is based on experience at [facility] and users should be aware that target concentrations vary widely depending on concomitant therapy, time post-transplant, and desired degree of immunosuppression. Performed By: #### T ACRO ####[facility] (DEFAULT)[address] [place] [address] XR CHEST PORTABLEon 09-04-20 23 XR CHEST PORTABLE Normal [facility] ASPERGILLUS ANTIGEN, BALon 1 Galactomannan Ag IA Qn (Unsp spec) <0.500 NINF [facility] Galactomannan Ag IA Qn (Unsp spec) <0.500 NINF [facility] BAL CONSULTOrdered By: Noa Peralta on 09-03-2023 ALVEOLAR MACROPHAGES 32 % [facility] Work Phone: Bal comments Correlation with microbiology stains and cultures is recommended. [facility] Work Phone: Bal Diff Quik Stain Quality Check Acceptable [facility] Work Phone: BKR BAL INTERPRETATION Cellular specimen comprised of alveolar macrophages and small lymphocytes. No definitive microorganisms are observed. Moderate degenerative changes. [facility] Work Phone: BKR DX CODE Use Ordering [facility] Work Phone: Eosinophils Patterson stain Ql (Unsp spec) 0 % [facility] Work Phone: Lymphocytes/100 WBC (Bld) 57 % [facility] Work Phone: Neutrophils/100 WBC Manual cnt (Bronch spec) 11 % [facility] Work Phone: Pathologist review Jame (Unsp spec) [Interp] Leonardo Peralta MD [facility] Work Phone: [facility] Work Phone: BAL CONSULTon 09-03-2023 ALVEOLAR MACROPHAGES 33 % [facility] Bal comments Correlation with microbiology stains and cultures is recommended. Correlation with viral studies is recommended. [facility] Bal Diff Quik Stain Quality Check Acceptable [facility] BKR BAL INTERPRETATION Cellular specimen comprised of alveolar macrophages and small lymphocytes. No definitive microorganisms are observed. Rare degenerating cells with changes suggestive of viral cytopathic effect are noted. Moderate degenerative changes. [facility] BKR DX CODE Use Ordering [facility] Eosinophils Patterson stain Ql (Unsp spec) 0 % [facility] Lymphocytes/100 WBC (Bld) 49 % [facility] Neutrophils/100 WBC Manual cnt (Bronch spec) 18 % [facility] Pathologist review Jame (Unsp spec) [Interp] Leonardo Peralta MD [facility] BRONCHOSCOPYon 09-03-2023 LAB, [facility] CBC,PLATELETSon 09-03-2023 Erythrocyte distribution width (RBC) [Ratio] 13.4 % 10.9 - 14.3 % [facility] Hematocrit (Bld) [Volume fraction] 39.6 % 39.6 - 48.8 % [facility] Hemoglobin (Bld) [Mass/Vol] 12.8 g/dL Low 13.4 - 16.8 g/dL [facility] Interpretation and review of laboratory results Abnormal [facility] MCH (RBC) [Entitic mass] 27.8 pg 26.1 - 33.3 pg [facility] MCHC (RBC) [Mass/Vol] 32.3 g/dL 31.9 - 36.5 g/dL [facility] MCV (RBC) [Entitic vol] 85.9 fL 79.0 - 94.5 fL [facility] Platelet mean volume (Bld) [Entitic vol] 9.4 fL 8.7 - 12.3 fL [facility] Platelets (Bld) [#/Vol] 222 10*3/uL 146 - 337 K/uL [facility] RBC (Bld) [#/Vol] 4.61 10*6/uL [facility] WBC (Bld) [#/Vol] 4.36 10*3/uL 3.73 - 10. 10 K/uL [facility] Hematocrit (Bld) [Volume fraction] 39.6 % Normal 39.6-48.[address] [facility] Comment on above: Performed By: #### H EMOGC ####[facility] (DEFAULT)[address] [place] [address] Hemoglobin (Bld) [Mass/Vol] 12.8 g/dL Low 13.4-16.[address] [facility] Comment on above: Performed By: #### H EMOGC ####[facility] (DEFAULT)[address] [place] [address] MCV (RBC) [Entitic vol] 85.9 fL Normal 79.0-94.[address] [facility] Comment on above: Performed By: #### H EMOGC ####[facility] (DEFAULT)[address] [place] [address] Mean Cell Hgb 27.8 pg Normal 26.1-33.[address] [facility] Comment on above: Performed By: #### H EMOGC ####[facility] (DEFAULT)[address] [place] [address] Mean Cell Hgb Conc 32.3 g/dL Normal 31.9-36.5 [facility] Comment on above: Performed By: #### H EMOGC ####[facility] (DEFAULT)[address] [place] [address] Platelet mean volume (Bld) [Entitic vol] 9.4 fL Normal 8.7-12.[address] [facility] Comment on above: Performed By: #### H EMOGC ####[facility] (DEFAULT)[address] [place] [address] Platelets (Bld) [#/Vol] 222 10*3/uL Normal 146-[address] [facility] Comment on above: Performed By: #### H [facility] ####[facility] (DEFAULT)[address] [place] [address] RBC (Bld) [#/Vol] 4.61 10*6/uL Normal 4.38-5.[address] [facility] Comment on above: Performed By: #### H [facility] ####[facility] (DEFAULT)[address] [place] [address] RBC Distribution 13.4 % Normal 10.9-14.3 [facility] Comment on above: Performed By: #### H [facility] ####[facility] (DEFAULT)[address] [place] [address] WBC (Bld) [#/Vol] 4.36 10*3/uL Normal 3.73-10.[address] [facility] Comment on above: Performed By: #### H [facility] ####[facility] (DEFAULT)[address] [place] [address] CHEM 7 (LYTES,BUN,CREA,GLUC) on 09-03-2023 Anion gap [Moles/Vol] 12 mmol/L 7 - 17 mmol/L [facility] Chloride [Moles/Vol] 104 mmol/L 98 - 10 8 mmol/L [facility] CO2 [Moles/Vol] 24 mmol/L 21 - 31 mmol/L [facility] Creatinine [Mass/Vol] 1.20 mg/dL 0.70 - 1.30 mg/dL [facility] eGFR, CKD-EPI, Male 74 - PINF [facility] Glucose [Mass/Vol] 112 mg/dL High 70 - 99 mg/dL [facility] Osmolality Calc [Osmolality] 288 [facility] Potassium [Moles/Vol] 4.1 mmol/L 3.5 - 5.0 mmol/L [facility] Sodium [Moles/Vol] 136 mmol/L 135 - 145 mmol/L [facility] Urea nitrogen [Mass/Vol] 17 mg/dL 7 - 25 mg/dL [facility] Urea nitrogen/Creatinine [Mass ratio] 14 mg/mg [facility] Anion gap [Moles/Vol] 12 mmol/L Normal 7-[address] [facility] Comment on above: Performed By: #### TJ RAMÍREZ7, HFP ####U [facility] (DEFAULT)[address] [place] [address] Chloride [Moles/Vol] 104 mmol/L Normal 98-[address] [facility] Comment on above: Performed By: #### NATHANIEL RAMÍREZ, HFP ####[facility] (DEFAULT)[address] [place] [address] CO2 [Moles/Vol] 24 mmol/L Normal 21-31 [facility] Comment on above: Performed By: #### NATHANIEL RAMÍREZ, HFP ####[facility] (DEFAULT)[address] [place] [address] Creatinine [Mass/Vol] 1.20 mg/dL Normal 0.70-1.[address] [facility] Comment on above: Performed By: #### NATHANIEL RAMÍREZ, HFP ####[facility] (DEFAULT)[address] [place] [address] GFR/1.73 sq M.predicted among non-blacks MDRD (S/P/Bld) [Vol rate/Area] 73 mL/min/{1.73_m2} Normal >=[address] [facility] Comment on above: Result Comment: Repo rted eGFR is based on the CKD-EPI 2020 equation using creatinine, age, and sex. Performed By: #### NATHANIEL RAMÍREZ, HFP ####[facility] (DEFAULT)[address] [place] [address] Glucose [Mass/Vol] 112 mg/dL High 70-99 [facility] Comment on above: Performed By: #### NATHANIEL RAMÍREZ, HFP ####U [facility] (DEFAULT)[address] [place] [address] Osmolality [Osmolality] 288 mosm/kg Normal 278-[address] [facility] Comment on above: Performed By: #### NATHANIEL RAMÍREZ, HFP ####U [facility] (DEFAULT)[address] [place] [address] Potassium [Moles/Vol] 4.1 mmol/L Normal 3.5-5.[address] [facility] Comment on above: Performed By: #### NATHANIEL RAMÍREZ, HFP ####Lucius [facility] (DEFAULT)[address] [place] [address] Sodium [Moles/Vol] 136 mmol/L Normal 135-145 [facility] Comment on above: Performed By: #### NATHANIEL RAMÍREZ, HFP ####Lucius [facility] (DEFAULT)[address] [place] [address] Urea nitrogen [Mass/Vol] 17 mg/dL Normal 7-[address] [facility] Comment on above: Performed By: #### NATHANIEL RAMÍREZ, HFP ####[facility] (DEFAULT)[address] [place] [address] Urea nitrogen/Creatinine [Mass ratio] 14 mg/mg Normal [facility] Comment on above: Performed By: #### NATHANIEL RAMÍREZ, HFP ####[facility] (DEFAULT)[address] [place] [address] CYTOLOGY, NON-GYNOrdered By: Sherice Jimenez on 09-03-2023 CYTOLOGIC DIAGNOSIS s7zedDGlBPDfsYWnUZPtY8jedhL cWSMqfGUgL3VsvdesPZldDO7zLU 1szXhroGPbkGVyNFErOwJmy8kak 333rTUpa6yqETCHgzquuJc1p7rv SUTHdT1lo8v6xR74VVTigW6elEO xNRrnsxNrPQdenyGiosXgOss2EC Z5fHgaEwosoAA0xKUelLP2FNbgp 3BzzFzagSigXQE1AIGvAzzoFVdo xPK6jDSxeSekwNEsXH2qm7wjkNH 2ttTrMQM3lXklfBG4kZpkgtkxn0 gixNS8nIF6IBjgxEI4NIlwAhQcI 4epNPBrxX1bV14vD1tnRQPafGvl JVwuJTTjwSN9UUZ1SUAjo4gjGCW tlEKooVBtUmHqXDtqGud5y3dsUI KnfJ48eLFkrmZ2wOkmQHexhQQ9H Z43YFnxm8QhYUElbHgzOXUnlR6j YzIzXGxldmVsbmZjbjIzXGxldmV upqMbVMftdhIjh6PvpzGagMB1BN ojquDecTQ3cEzsNVKqS4V3Q068O ElpgyNkykZlKcTmsqi4FUSvtFtf bGlzdGxldmVsXGxldmVsbmZjMjN rwFG6NDsdAlUzFbJkcBK1OJrkGl SimOS0YSllvMImmMF4HWqtyZJ7J Tm0FBy3UHciGTzxWcz0vHofuDH5 GKpsbT0gSIRaS32pDxF8d0lpwQI 5cYX0DEcknHH0MPyuHnEoM2lcVN OecF6kX30hL1gnBMXbbJdwZBrsH YQocPB2BWA6YOWym9uuLNHdwGRc bAJpJrByQHnsQmx6c0scOLUlpM2 6fIQfrmJ3lIpcPD92DNtgz3AhUM RbfJjbKFMszK3jZlJmVVodflLkc mZjbjIzXGxldmVsamMwXGxldmVs m9ZoizAvhSR2PLsllhEduUW1hDc tJQDkH1G5J104RKjimfOakmMhNf Nmrbq5DGWriJrayBqosBwiuxSeO IjieqFzahXcCfRnhGL4XVhpUiEa VpFfvUB7XHleIfYjuHS0FLvkhAA rdTN1BZivvFH0HDa2NTj4RAngUE gnWvr7lLhjxCB0CNtdlZ9pPRVkR 82rVrX5n3kvsMT8eKT4EFtwyNF0 TLtfDdSrR5msHRMalY5bQ73hP1k sKFLodApzOMagNYXsvKI0ABF5YR Nnz3dmFARflINxiZQfBnNoTCixY ck7p1twHFRgiD85mIBgcfR4kKqj BT34NKwmo8TiHZHvjIdvRVUnnL0 mYzIzXGxldmVsbmZjbjIzXGxldm BgmfZaEEhomoEpg7QmxmFwwVC7C UasgrEvnRK0gOmkLGJmX0J1E670 UNpkgkHlrcCkPpMrazn7EQOyzCg cbGlzdGxldmVsXGxldmVsbmZjMj SlrCV6FScjEfGaYoUraYC9HGxwH tMmjRB9XFtwuSVsfEE0KOjrwUR1 BEj5KNg0VEqaAXbxUxo1tBqjmBQ 1CDrvyZ2qVOWdA40jRfM6uC18GM fnfQmsyE68GPLssPNvdXYwlWZ5B SueiClryX64LBOybLGjUXngd0Pj TLEjSoF5DBP8WPErqAsmiK72UOD lqCZzX413haUnCPtjVR90MMAgcP OugfSoIzOsAZRibZBtsOA4CVDvH S0kujdkLPkfHYmlNGWjnrL6CZVs eNFfL4HuAJCeQA7ezdokLZU4WZi sACWwWOJ4HeXwQILao9Buqvc9Oh JutBn4q8llSGToPKVliHpli5tpV PQ9GVChyGTrW3pgmP4mENVpBR0l prmav2ipMZrlMLnpAXSuyGJ2zfA 8YKVkcDJvN8CekN1lRCVwWOHvnj FqrGdjtB4bYyhsyaYcGBLzSEEEN nSYFq6FE6hYZVxEFF1MONGvXMXC BDbYBGFGFFKYEPyJR8VFBVjAAyO eTWXnLGFcY1mES0jSD0khBxmpXb WnYDmxYSOdEbTeF8RvBVKbqkpqB KVbJKDOAR5JUEMSMKTXYl1GCRJ3 LKRnilmjwMD3ZQxtvaJniMz0pOE gwRjyeR9aWygnuiXsAYKrNCSOdb CBPPxpO40andDiD4PghXWkSWXqI HgtHC66wYVjHXAkjIRsPWa8uO5c NEutdNytrjIPqJQinJ1vbivdWKt jZjBccGFyXGxpMFxsczBccGFyfQ == [facility] Work Phone: Case Report [facility] Work Phone: Clinical History v8iwyAXoGUUjkYIfPWCa J5hdacE gUYQgnLUwQ9SmjllfFPbjZS5dBT 0cyYkdqJJltAWbGVVfWhScp5whd 971bYAal2ieNWNUegxwoFa6fGbc U16ak9S6MmmxL0idEUNcZMheMQR tNQgjnGWuVOa5XNJczBFhrkElLx SsHNWwePHztVM9OXYlTV1yzgdqY PbqKDgsVXBipkM0BIMojKBoH2Pm RFToFM1oqrccTJD7XEapUNZsYDC 0DgGxONBjb3Pzfym3WtPimId0x9 umIXCjCEVwtDker7xnOSK6KUMcm KPrK5dmlK8xLODnHQ9igubes1wh WJnwGMllQJIupTZ6apB2XEBwlRB gK2TjhS4kVVFxAUZhxqOolLfpdX 5cZnMyMFxjZjEgUmVuYWwgdHJhb kNecTQzgH8eICAejx5= [facility] Work Phone: For Immediate Release to [facility]? Yes Yes [facility] Work Phone: Gross Description m1oqjSIcXMIbjRHvRIPs X2fhscK pZJJvmNJcK9QvqijhBIrzYI2gRL 8kbMlayGBbzAEyLTIgBwDoy1nay 174xGEib5naWTYLemkakRz5jFdl L61sa3T9SvvzB79ylURfUAX4QFJ bDYZckBMgZFQhPLD1SKYpwAXsJ4 bxKSOlXN5kanwoXIosQXxcHULgt OL5RIGgfTPhC1EaNHGrXXafUHWz qzt2CfEzRk9heXAstDtwJJhbMLY kXHBsYWluXGZzMjAgTExMIEJBTF ddLDUrFXAgxVWsBNh9HGYtnM3jo EUnmgJtaIWlyX0exIndYQtvRKJe MWPRYMVggImaEMMENTUsd7KraV4 ccGFyXHBhcmRccGFyXHBhcn0= [facility] Work Phone: [facility] Work Phone: HEPATIC FUNCTION PANELon Albumin [Mass/Vol] 3.2 g/dL Low 3.5 - 5.0 g/dL [facility] ALP [Catalytic activity/Vol] 118 U[facility]L 32 - 126 [facility] ALT [Catalytic activity/Vol] 25 U/L 10 - 52 U/L [facility] AST [Catalytic activity/Vol] 32 U/L 10 - 39 U/L [facility] Bilirubin [Mass/Vol] 1.0 mg/dL NINF - 1.5 mg/dL [facility] Bilirubin.direct [Mass/Vol] 0.3 mg/dL High NINF - 0.3 mg/dL [facility] Protein [Mass/Vol] 6.5 g/dL 6.4 - 8.3 g/dL [facility] Albumin [Mass/Vol] 3.2 g/dL Low 3.5-5.0 [facility] Comment on above: Performed By: #### TJ RAMÍREZ7, HFP ####[facility] (DEFAULT)[address] [place] [address] ALP [Catalytic activity/Vol] 118 U/L Normal 32-[address] [facility] Comment on above: Performed By: #### TJ RAMÍREZ7, HFP ####[facility] (DEFAULT)[address] [place] [address] ALT [Catalytic activity/Vol] 25 U/L Normal 10-[address] [facility] Comment on above: Performed By: #### Rod BLOOM CHM7, HFP ####[facility] (DEFAULT)[address] [place] [address] AST [Catalytic activity/Vol] 32 U/L Normal 10-[address] [facility] Comment on above: Performed By: #### Rod BLOOM CHM7, HFP ####[facility] (DEFAULT)[address] [place] [address] Bilirubin [Mass/Vol] 1.0 mg/dL Normal <1.[address] [facility] Comment on above: Performed By: #### Rod BLOOM CHM7, HFP ####[facility] (DEFAULT)[address] [place] [address] Bilirubin.indirect [Mass/Vol] 0.3 mg/dL High <0.[address] [facility] Comment on above: Performed By: #### M MERLE, CHM7, HFP ####[facility] (DEFAULT)[address] [facility] [place] [address] Protein [Mass/Vol] 6.5 g/dL Normal 6.4-8.3 [facility] Comment on above: Performed By: #### M MERLE, CHM7, HFP ####[facility] (DEFAULT)[address] [place] [address] HISTOPLASMA AND BLASTOMYCES ANTIGEN, ENZYME IMMUNOASSAY, SERMon 09-03-2023 Histoplasma/Blastomy antonia Ag Result Detected Critically abnormal Not Detected [facility] Histoplasma/Blastomy antonia Ag Value 5.3 ng/mL [facility] Interpretation and review of laboratory results Abnormal [facility] IMMUNOPHENOTYPING, TISSUE/FL UIDon 09-03-2023 BKR DX CODE Use Ordering Normal [facility] Comment on above: Order Comment: Pleas e lab add on to specimen collected yesterdayIMMUNOPHENOTYPING DIAGNOSISPATIENT NAME: GEORGE SLATER: 1970MRN: [id number]#: [id number] BY: Yossi Perla M.D,, Ph.D. [id number] TYPE: Bronchial Alveolar LavageLABORATORY INTERPRETATION:There is no [...] notbe regarded as investigational or for research.The [facility] Flow Cytometry Laboratory lower limitof CLL MRD detection is 0.1% of the gated lymphocytes. Performed By: #### G IPP ####[facility] (DEFAULT)[address] [place] [address] Flow Interpretation See Comment Normal [facility] Comment on above: Order Comment: Plejoan e lab add on to specimen collected yesterdayIMMUNOPHENOTYPING DIAGNOSISPATIENT NAME: GEORGE SLATER: 1970MRN: [id number]#: [id number] BY: Yossi Perla M.D,, Ph.D. [id number] TYPE: Bronchial Alveolar LavageLABORATORY INTERPRETATION:There is no [...] characteristicsdetermined The Flow Cytometry Laboratory at [facility]. It has notbeen cleared or approved by the FDA. This laboratory is certifiedunder the Clinical Laboratory Improvement Amendments (CLIA)as qualified to perform high complexity clinical laboratorytesting. This test is used for clinical purposes. It should notbe regarded as investigational or for research.The [facility] Flow Cytometry Laboratory lower limitof CLL MRD detection is 0.1% of the gated lymphocytes. Performed By: #### G IPP ####[facility] (DEFAULT)[address] [place] [address] Flow Interpreted by: Yossi Perla MD, PhD [facility] Comment on above: Order Comment: Samrajoan gregory lab add on to specimen collected yesterdayIMMUNOPHENOTYPING DIAGNOSISPATIENT NAME: GEORGE SLATER: 1970MRN: [id number]#: [id number] BY: Yossi Perla M.D,, Ph.D. [id number] TYPE: Bronchial Alveolar LavageLABORATORY INTERPRETATION:There is no [...] characteristicsdetermined The Flow Cytometry Laboratory at [facility]. It has notbeen cleared or approved by the FDA. This laboratory is certifiedunder the Clinical Laboratory Improvement Amendments (CLIA)as qualified to perform high complexity clinical laboratorytesting. This test is used for clinical purposes. It should notbe regarded as investigational or for research.The [facility] Flow Cytometry Laboratory lower limitof CLL MRD detection is 0.1% of the gated lymphocytes. Performed By: #### G IPP ####[facility] (DEFAULT)[address] [place] [address] MAGNESIUMon 09-03-2023 Interpretation and review of laboratory results Normal [facility] Magnesium [Mass/Vol] 1.6 mg/dL 1.6 - 2 .6 mg/dL [facility] Magnesium [Mass/Vol] 1.6 mg/dL Normal 1.6-2.[address] [facility] Comment on above: Performed By: #### M MERLE, CHM7, HFP ####[facility] (DEFAULT)[address] [place] [address] No Panel Informationon 09-03 Interpretation and review of laboratory results Abnormal [facility] PARVOVIRUS (B19) DNA, PCR, B LOODon 09-03-2023 PARVOVIRUS B19 BY RAPID PCR Not detected Not Detected [facility] DE SPEC SOURCE Whole Blood [facility] Portable XR Chest Viewson RADIOLOGY RADIOLOGY [facility] Radiology Study observation (narrative) [facility] Portable XR Chest ViewsOrder ed By: [place] on 09-03-2023 [facility] Work Phone: XR CHEST PORTABLEon 09-03-20 23 XR CHEST PORTABLE Normal [facility] ACID FAST CULTUREon 09-02-20 23 Bacteria identified Cx Nom (Unsp spec) NO GROWTH DAY 42 OF 42 Normal [facility] Comment on above: Performed By: #### A FB ####[facility] (DEFAULT)[address] [place] [address] Fluorochrome Stain No acid Fast Bacillus Seen Normal [facility] Comment on above: Performed By: #### A FB ####[facility] (DEFAULT)[address] [place] [address] Bacteria identified Cx Nom (Unsp spec) NO GROWTH DAY 42 OF 42 Normal [facility] Comment on above: Order Comment: BAL A FB culture. Clinical suspicion for non-tuberculous mycobacteria Performed By: #### A FB ####[facility] (DEFAULT)[address] [place] [address] Fluorochrome Stain No acid Fast Bacillus Seen Normal [facility] Comment on above: Order Comment: BAL A FB culture. Clinical suspicion for non-tuberculous mycobacteria Performed By: #### A FB ####[facility] (DEFAULT)[address] [place] [address] ASPERGILLUS (GALACTOMANNAN), ANTIGENon 09-02-2023 Galactomannan Ag IA Qn <0.500 NINF [facility] ASPERGILLUS ANTIGEN, BALon 1 Aspergillus Galactomannan Antigen, BAL <0.500 Normal <0.[address] [facility] Comment on above: Result Comment: ---- ADDITIONAL INFORMATION This is a qualitative test and the resulted index value isnot indicative of disease severity. Serial testing isrecommended for patients at high risk for invasiveaspergillosis.This assay was performed using the FDA-cleared [employer] Aspergillus Galactomannan EIA.Test Performed by:[address] Director: Rosendo Bose M.D. Ph.D.; CLIA# [id number] Performed By: #### X ASGFL ####[facility] (DEFAULT)[address] [place] [address] Aspergillus Galactomannan Antigen, BAL <0.500 Normal <0.[address] [facility] Comment on above: Order Comment: BAL a spirgillus antigen Result Comment: ---- ADDITIONAL INFORMATION This is a qualitative test and the resulted index value isnot indicative of disease severity. Serial testing isrecommended for patients at high risk for invasiveaspergillosis.This assay was performed using the FDA-cleared [employer] Aspergillus Galactomannan EIA.Test Performed by:[place] [id number] Director: Rosendo Bose M.D. Ph.D.; CLIA# [id number] Performed By: #### X ASGFL ####[facility] (DEFAULT)[address] [place] [address] ATYPICAL BACTERIAL PNEUMONIA ,PCROrdered By: Shari Contreras on 09-02-2023 B. parapertussis DNA ESTELITA+probe Ql (Unsp spec) Not detected Not Detected [facility] B. pertussis DNA ESTELITA+probe Ql (Unsp spec) Not detected Not Detected [facility] C. pneumoniae DNA ESTELITA+probe Ql (Unsp spec) Not detected Not Detected [facility] Interpretation and review of laboratory results Normal [facility] M. pneumoniae DNA ESTELITA+probe Ql (Unsp spec) Not detected Not Detected [facility] ATYPICAL BACTERIAL PNEUMONIA ,PCRon 09-02-2023 Bordetella Parapertussis Not detected Normal Not Detected [facility] Comment [...] Clinical Microbiology Laboratory at [facility]. It has not been cleared or approved by the FDA. The laboratory is required under CLIA as qualified to perform high-complexity testing. This test is used for clinical purposes. It should not be regarded as investigational or for research. Performed By: #### A TYPNE ####[facility] (DEFAULT)[address] [place] [address] Bordetella Pertussis Not detected Normal Not Detected [facility] Comment [...] Clinical Microbiology Laboratory at [facility]. It has not been cleared or approved by the FDA. The laboratory is required under CLIA as qualified to perform high-complexity testing. This test is used for clinical purposes. It should not be regarded as investigational or for research. Performed By: #### A TYPNE ####[facility] (DEFAULT)[address] [address] Chlamydia Pneumoniae Not detected Normal Not Detected [facility] Comment [...] Clinical Microbiology Laboratory at [facility]. It has not been cleared or approved by the FDA. The laboratory is required under CLIA as qualified to perform high-complexity testing. This test is used for clinical purposes. It should not be regarded as investigational or for research. Performed By: #### A TYPNE ####[facility] (DEFAULT)[address] [address] Mycoplasma Pneumoniae Not detected Normal Not Detected [facility] Comment [...] Clinical Microbiology Laboratory at [facility]. It has not been cleared or approved by the FDA. The laboratory is required under CLIA as qualified to perform high-complexity testing. This test is used for clinical purposes. It should not be regarded as investigational or for research. Performed By: #### A TYPNE ####[facility] (DEFAULT)[address] [place] [address] BAL CONSULTon 09-02-2023 ALVEOLAR MACROPHAGES 33 % Normal [facility] Comment on above: Order Comment: BAL c onsultIf > 15% lymphocytes - please send for flow. Performed By: #### B ALC ####[facility] (DEFAULT)[address] [place] [address] Bal comments Correlation with microbiology stains and cultures is recommended. Correlation with viral studies is recommended. Normal [facility] Comment on above: Order Comment: BAL c onsultIf > 15% lymphocytes - please send for flow. Performed By: #### B ALC ####[facility] (DEFAULT)[address] [place] [address], [place] [address] Bal Diff Quik Stain Quality Check Acceptable Normal [facility] Comment on above: Order Comment: BAL c onsultIf > 15% lymphocytes - please send for flow. Performed By: #### B ALC ####[facility] (DEFAULT)[address] [place] [address], [place] [address] Bal Reviewed By: Leonardo Peralta MD [facility] Comment on above: Order Comment: BAL c onsultIf > 15% lymphocytes - please send for flow. Performed By: #### B ALC ####[facility] (DEFAULT)[address] [place] [address], [place] [address] BKR BAL INTERPRETATION Cellular specimen comprised of alveolar macrophages and small lymphocytes. No definitive microorganisms are observed. Rare degenerating cells with changes suggestive of viral cytopathic effect are noted. Moderate degenerative changes. Normal [facility] Comment on above: Order Comment: BAL c onsultIf > 15% lymphocytes - please send for flow. Performed By: #### B ALC ####[facility] (DEFAULT)[address] [place] [address] BKR DX CODE Use Ordering Normal [facility] Comment on above: Order Comment: BAL c onsultIf > 15% lymphocytes - please send for flow. Performed By: #### B ALC ####[facility] (DEFAULT)[address] [place] [address] Eosinophils/100 WBC (Bld) 0 % Normal [facility] Comment on above: Order Comment: BAL c onsultIf > 15% lymphocytes - please send for flow. Performed By: #### B ALC ####[facility] (DEFAULT)[address] [place] [address] Lymphocytes/100 WBC (Bld) 49 % Normal [facility] Comment on above: Order Comment: BAL c onsultIf > 15% lymphocytes - please send for flow. Performed By: #### B ALC ####[facility] (DEFAULT)[address] [place] [address], [place] [address] Neutrophils/100 WBC (Bld) 18 % Normal [facility] Comment on above: Order Comment: BAL c onsultIf > 15% lymphocytes - please send for flow. Performed By: #### B ALC ####[facility] (DEFAULT)[address] [place] [address], [place] [address] ALVEOLAR MACROPHAGES 32 % Normal [facility] Comment on above: Order Comment: BAL c onsult for cell differential and pathologist review. Please do flow cytometry if > 12% lymphocytes Performed By: #### B ALC ####[facility] (DEFAULT)[address] [place] [address], [place] [address] Bal comments Correlation with microbiology stains and cultures is recommended. Normal [facility] Comment on above: Order Comment: BAL c onsult for cell differential and pathologist review. Please do flow cytometry if > 12% lymphocytes Performed By: #### B ALC ####[facility] (DEFAULT)[address] [place] [address] Bal Diff Quik Stain Quality Check Acceptable Normal [facility] Comment on above: Order Comment: BAL c onsult for cell differential and pathologist review. Please do flow cytometry if > 12% lymphocytes Performed By: #### B ALC ####[facility] (DEFAULT)[address] [place] [address], [place] [address] Bal Reviewed By: Leonardo Peralta MD Normal [facility] Comment on above: Order Comment: BAL c onsult for cell differential and pathologist review. Please do flow cytometry if > 12% lymphocytes Performed By: #### B ALC ####[facility] (DEFAULT)[address] [facility] [place] [address] BKR BAL INTERPRETATION Cellular specimen comprised of alveolar macrophages and small lymphocytes. No definitive microorganisms are observed. Moderate degenerative changes. Normal [facility] Comment on above: Order Comment: BAL c onsult for cell differential and pathologist review. Please do flow cytometry if > 12% lymphocytes Performed By: #### B ALC ####[facility] (DEFAULT)[address] [place] [address] BKR DX CODE Use Ordering Normal [facility] Comment on above: Order Comment: BAL c onsult for cell differential and pathologist review. Please do flow cytometry if > 12% lymphocytes Performed By: #### B ALC ####[facility] (DEFAULT)[address] [place] [address], [place] [address] Eosinophils/100 WBC (Bld) 0 % Normal [facility] Comment on above: Order Comment: BAL c onsult for cell differential and pathologist review. Please do flow cytometry if > 12% lymphocytes Performed By: #### B ALC ####[facility] (DEFAULT)[address] [place] [address] Lymphocytes/100 WBC (Bld) 57 % Normal [facility] Comment on above: Order Comment: BAL c onsult for cell differential and pathologist review. Please do flow cytometry if > 12% lymphocytes Performed By: #### B ALC ####[facility] (DEFAULT)[address] [place] [address] Neutrophils/100 WBC (Bld) 11 % Normal [facility] Comment on above: Order Comment: BAL c onsult for cell differential and pathologist review. Please do flow cytometry if > 12% lymphocytes Performed By: #### B ALC ####[facility] (DEFAULT)[address] [place] [address] BRONCHOSCOPYon 09-02-2023 Radiology Study observation (narrative) [facility] Bacteria identified Cx Nom ( Bld)on 09-02-2023 Bacteria identified Cx Nom (Unsp spec) NO GROWTH DAY 5 OF 5 [facility] CBC,PLATELETSon 09-02-2023 Erythrocyte distribution width (RBC) [Ratio] 13.2 % 10.9 - 14.3 % [facility] Hematocrit (Bld) [Volume fraction] 39.9 % 39.6 - 48.8 % [facility] Hemoglobin (Bld) [Mass/Vol] 12.9 g/dL Low 13.4 - 16.8 g/dL [facility] Interpretation and review of laboratory results Abnormal [facility] MCH (RBC) [Entitic mass] 27.9 pg 26.1 - 33.3 pg [facility] MCHC (RBC) [Mass/Vol] 32.3 g/dL 31.9 - 36.5 g/dL [facility] MCV (RBC) [Entitic vol] 86.4 fL 79.0 - 94.5 fL [facility] Platelet mean volume (Bld) [Entitic vol] 9.5 fL 8.7 - 12.3 fL [facility] Platelets (Bld) [#/Vol] 210 10*3/uL 146 - 337 K/uL [facility] RBC (Bld) [#/Vol] 4.62 10*6/uL [facility] WBC (Bld) [#/Vol] 4.12 10*3/uL 3.73 - 10. 10 K/uL [facility] Hematocrit (Bld) [Volume fraction] 39.9 % Normal 39.6-48.[address] [facility] Comment on above: Performed By: #### H [facility] ####[facility] (DEFAULT)[address] [place] [address] Hemoglobin (Bld) [Mass/Vol] 12.9 g/dL Low 13.4-16.[address] [facility] Comment on above: Performed By: #### H [facility] ####[facility] (DEFAULT)[address] [place] [address] MCV (RBC) [Entitic vol] 86.4 fL Normal 79.0-94.[address] [facility] Comment on above: Performed By: #### H EMOGC ####[facility] (DEFAULT)[address] [place] [address] Mean Cell Hgb 27.9 pg Normal 26.1-33.[address] [facility] Comment on above: Performed By: #### H EMOGC ####[facility] (DEFAULT)[address] [facility] [place] [address] Mean Cell Hgb Conc 32.3 g/dL Normal 31.9-36.5 [facility] Comment on above: Performed By: #### H EMOGC ####[facility] (DEFAULT)[address] [place] [address] Platelet mean volume (Bld) [Entitic vol] 9.5 fL Normal 8.7-12.[address] [facility] Comment on above: Performed By: #### H EMOGC ####[facility] (DEFAULT)[address] [place] [place] [address] Platelets (Bld) [#/Vol] 210 10*3/uL Normal 146-[address] [facility] Comment on above: Performed By: #### H EMOGC ####[facility] (DEFAULT)[address] [place] [address] RBC (Bld) [#/Vol] 4.62 10*6/uL Normal 4.38-5.[address] [facility] Comment on above: Performed By: #### H EMOGC ####[facility] (DEFAULT)[address] [place] [address] RBC Distribution 13.2 % Normal 10.9-14.3 [facility] Comment on above: Performed By: #### H EMOGC ####[facility] (DEFAULT)[address] [place] [address] WBC (Bld) [#/Vol] 4.12 10*3/uL Normal 3.73-10.[address] [facility] Comment on above: Performed By: #### H [facility] ####[facility] (DEFAULT)[address] [place] [address] CHEM 7 (LYTES,BUN,CREA,GLUC) on 09-02-2023 Anion gap [Moles/Vol] 13 mmol/L 7 - 17 mmol/L [facility] Chloride [Moles/Vol] 105 mmol/L 98 - 10 8 mmol/L [facility] CO2 [Moles/Vol] 22 mmol/L 21 - 31 mmol/L [facility] Creatinine [Mass/Vol] 1.25 mg/dL 0.70 - 1.30 mg/dL [facility] eGFR, CKD-EPI, Male 69 - PINF [facility] Glucose [Mass/Vol] 105 mg/dL High 70 - 99 mg/dL [facility] Osmolality Calc [Osmolality] 287 [facility] Potassium [Moles/Vol] 4.3 mmol/L 3.5 - 5.0 mmol/L [facility] Sodium [Moles/Vol] 136 mmol/L 135 - 145 mmol/L [facility] Urea nitrogen [Mass/Vol] 16 mg/dL 7 - 25 mg/dL [facility] Urea nitrogen/Creatinine [Mass ratio] 13 mg/mg [facility] Anion gap [Moles/Vol] 13 mmol/L Normal 7-[address] [facility] Comment on above: Performed By: #### C HM7, HFP, MGO ####[facility] (DEFAULT)[address] [place] [address] Chloride [Moles/Vol] 105 mmol/L Normal 98-[address] [facility] Comment on above: Performed By: #### C HM7, HFP, MGO ####[facility] (DEFAULT)[address] [place] [address] CO2 [Moles/Vol] 22 mmol/L Normal 21-31 [facility] Comment on above: Performed By: #### C TAVO MEDLEY, MGO ####U [facility] (DEFAULT)[address] [place] [address] Creatinine [Mass/Vol] 1.25 mg/dL Normal 0.70-1.[address] [facility] Comment on above: Performed By: #### Chinedu HMTAVO Lopez, MGO ####[facility] (DEFAULT)[address] [place] [address] GFR/1.73 sq M.predicted among non-blacks MDRD (S/P/Bld) [Vol rate/Area] 69 mL/min/{1.73_m2} Normal >=[address] [facility] Comment on above: Result Comment: Repo rted eGFR is based on the CKD-EPI 2020 equation using creatinine, age, and sex. Performed By: #### C TAVO MEDLEY, MGO ####[facility] (DEFAULT)[address] [place] [address] Glucose [Mass/Vol] 105 mg/dL High 70-99 [facility] Comment on above: Performed By: #### Chinedu MEDLEY HFP, MGO ####[facility] (DEFAULT)[address] [place] [address] Osmolality [Osmolality] 287 mosm/kg Normal 278-[address] [facility] Comment on above: Performed By: #### C JASMYNE, TAVO, MGO ####U [facility] (DEFAULT)[address] [place] [address] Potassium [Moles/Vol] 4.3 mmol/L Normal 3.5-5.[address] [facility] Comment on above: Performed By: #### Chinedu HM7, HFP, MGO ####[facility] (DEFAULT)[address] [place] [address] Sodium [Moles/Vol] 136 mmol/L Normal 135-145 [facility] Comment on above: Performed By: #### C HM7, HFP, MGO ####U [facility] (DEFAULT)[address] [place] [address] Urea nitrogen [Mass/Vol] 16 mg/dL Normal 7-[address] [facility] Comment on above: Performed By: #### C HM7, HFP, MGO ####[facility] (DEFAULT)[address] [place] [address] Urea nitrogen/Creatinine [Mass ratio] 13 mg/mg Normal [facility] Comment on above: Performed By: #### C HM7, HFP, MGO ####U [facility] (DEFAULT)[address] [place] [address] CMV PCR,FLUIDS,URINE,EYE ETC on 09-02-2023 CMV by PCR Result Negative Normal Negative [facility] Comment on above: Result Comment: ---- ADDITIONAL INFORMATION This test was developed and its performance characteristicsdetermined by [facility] in a manner consistent with CLIArequirements. This test has not been cleared or approved bythe U.S. Food and Drug Administration.Test Performed by:[address] [id number] Director: Rosendo Bose M.D. Ph.D.; CLIA# [id number] Performed By: #### Y CMV ####[facility] (DEFAULT)[address] [place] [address], [place] [address] CMV BY PCR SOURCE BAL RML Normal [facility] Comment on above: Performed By: #### Y CMV ####U [facility] (DEFAULT)[address] [place] [address] CMV by PCR Result Negative Normal Negative [facility] Comment on above: Result Comment: ---- ADDITIONAL INFORMATION This test was developed and its performance characteristicsdetermined by [facility] in a manner consistent with CLIArequirements. This test has not been cleared or approved bythe U.S. Food and Drug Administration.Test Performed by:[address] [id number] Director: Rosendo Bose M.D. Ph.D.; CLIA# [id number] Performed By: #### Y CMV ####[facility] (DEFAULT)[address] [place] [address] CMV BY PCR SOURCE BAL LLL Normal [facility] Comment on above: Performed By: #### Y CMV ####[facility] (DEFAULT)[address] [place] [address] CYTOLOGY, NON-GYNon 09-02-20 CYTOLOGIC DIAGNOSIS Normal [facility] Comment on above: Result Comment: A. B RONCHOALVEOLAR LAVAGE, LEFT LOWER LOBE (CYTOLOGY):FINAL DIAGNOSIS:No Malignant Cells Are IdentifiedHypocellular Specimen Performed By: #### N ONJONH ####[facility] (DEFAULT)[address] [place] [address] Case Report Normal [facility] Comment on above: Result Comment: [facility] Cytology Report Case: [id number] Provider: Crow Diaz MD Collected: 09/02/2023 08:38 AMOrdering Location: 0 Received: 09/02/2023 10:44 AMPathologist: KENTON Caglepecimen: BRONCHOALVEOLAR LAVAGE, LLL BAL Performed By: #### N LITZY ####[facility] (DEFAULT)[address] [place] [address] Clinical History Renal transplant. Normal [facility] Comment on above: Performed By: #### N ONNILOFNA ####[facility] (DEFAULT)[address] [place] [address] Gross Description Normal [facility] Comment on above: Result Comment: LLL BAL1 ml hazy colorless fld unfixed1 TP slide Pap stainFor Immediate Release to Patient's MyChart? Yes Performed By: #### N ONGNNONFNA ####[facility] (DEFAULT)[address] [place] [address] FUNGUS CULTUREon 09-02-2023 Bacteria identified Cx Nom (Unsp spec) Normal [facility] Comment on above: Order Comment: Ident ification was performed on the MALDI-TOF mass spectrometer [employer]. This test was developed by [facility]. It has not been cleared or approved by the FDA. The laboratory is regulated under CLIA as qualified to perform high-complexity testing. This test is used for clinical purposes. It should not be regarded as investigational or for research. Result Comment: Grow [id number] [place] Histoplasma capsulatum Performed By: #### F UN ####[facility] (DEFAULT)[address] [place] [address] Bacteria identified Cx Nom (Unsp spec) NO GROWTH DAY 28 OF 28 Normal [facility] Comment on above: Order Comment: BAL f ungal culture Performed By: #### F UN ####[facility] (DEFAULT)[address] [place] [address] HEPATIC FUNCTION PANELon Albumin [Mass/Vol] 3.2 g/dL Low 3.5 - 5.0 g/dL [facility] ALP [Catalytic activity/Vol] 107 U/L 32 - 126 U/L [facility] ALT [Catalytic activity/Vol] 20 U/L 10 - 52 U/L [facility] AST [Catalytic activity/Vol] 31 U/L 10 - 39 U/L [facility] Bilirubin [Mass/Vol] 1.0 mg/dL NINF - 1.5 mg/dL [facility] Bilirubin.direct [Mass/Vol] 0.3 mg/dL High NINF - 0.3 mg/dL [facility] Protein [Mass/Vol] 6.6 g/dL 6.4 - 8.3 g/dL [facility] Albumin [Mass/Vol] 3.2 g/dL Low 3.5-5.0 [facility] Comment on above: Performed By: #### C HM7, HFP, MGO ####[facility] (DEFAULT)[address] [place] [address] ALP [Catalytic activity/Vol] 107 U/L Normal 32-[address] [facility] Comment on above: Performed By: #### Chinedu HMJessica, HFP, MGO ####[facility] (DEFAULT)[address] [place] [address] ALT [Catalytic activity/Vol] 20 U/L Normal 10-[address] [facility] Comment on above: Performed By: #### Chinedu HMJessica, HFP, MGO ####[facility] (DEFAULT)[address] [place] [address] AST [Catalytic activity/Vol] 31 U/L Normal 10-[address] [facility] Comment on above: Performed By: #### Chinedu HM7, HFP, MGO ####[facility] (DEFAULT)[address] [place] [address] Bilirubin [Mass/Vol] 1.0 mg/dL Normal <1.[address] [facility] Comment on above: Performed By: #### Chinedu HMJessica, HFP, MGO ####[facility] (DEFAULT)[address] [place] [address] Bilirubin.indirect [Mass/Vol] 0.3 mg/dL High <0.[address] [facility] Comment on above: Performed By: #### Chinedu HM7, HFP, MGO ####[facility] (DEFAULT)[address] [place] [address] Protein [Mass/Vol] 6.6 g/dL Normal 6.4-8.3 [facility] Comment on above: Performed By: #### C HM7, HFP, MGO ####[facility] (DEFAULT)[address] [place] [address] HISTOPLASMA ANTIGEN, FLUIDon 09-02-2023 FH SOURCE BAL RML Normal [facility] Comment on above: Performed By: #### Y FHST ####[facility] (DEFAULT)[address] [place] [address] Histo FLD interpretation Negative Normal [facility] Comment on above: Result Comment: ---- ADDITIONAL INFORMATION Reference interval: None DetectedReportable Range: Positive Results reported in ng/mL from0.20 ng/mL to 20.00 ng/mLPositive Results above 20.00 ng/mL are reported as 'Abovethe Limit of Quantification'Cross-reactions occur with Blastomyces spp., Coccidioidesspp., and Paracoccidioides brasiliensis.This test was developed and its performance characteristicsdetermined by [facility]. It has not beencleared or approved by the FDA; however, FDA clearance orapproval is not currently required for clinical use. Theresults are not intended to be used as the sole means forclinical diagnosis or patient management decisions.Test Performed by:[facility] [place] [address] [place] [address] Performed By: #### Y FHST ####[facility] (DEFAULT)[address] [place] [address] Histoplasma Antigen, FLUID Not detected Normal [facility] Comment on above: Performed By: #### Y FHST ####[facility] (DEFAULT)[address] [place] [address] HISTOPLASMA ANTIGEN,URINEon 09-02-2023 H. capsulatum Ag (U) [Mass/Vol] Not detected ng/mL [facility] H. capsulatum Ag IA Ql (U) Not detected Not Detected [facility] HISTOPLASMA CAPSULATUM/BLAST OMYCES SPECIES,PCR FLUIDon 09-02-2023 HISTO/BLASTO RESULT Negative Normal Not Applicable [facility] Comment on above: Result Comment: A Ne gative result from BAL fluid does not rule out thepresence of Histoplasma capsulatum because the sensitivity from this source is suboptimal. ADDITIONAL INFORMATION This test was developed and its performance characteristicsdetermined by [facility] in a manner consistent with CLIArequirements. This test has not been cleared or approved bythe U.S. Food and Drug Administration.Test Performed by:[address] [id number] Director: Rosendo Bose M.D. Ph.D.; CLIA# [id number] Performed By: #### Y HBRP ####[facility] (DEFAULT)[address] [place] [address] Source BAL RML Normal [facility] Comment on above: Performed By: #### Y HBRP ####[facility] (DEFAULT)[address] [place] [address] HIV 1 AND 2 ANTIBODIES/P24 A NTIGENOrdered By: Wilma Luque on 09-02-2023 HIV 1+2 Ab+HIV1 p24 Ag IA Ql Non-Reactive Non Reactive [facility] Interpretation and review of laboratory results Normal [facility] HIV 1 AND 2 ANTIBODIES/P24 A NTIGENon 09-02-2023 HIV-1/HIV-2 Ab With p24 Antigen Non-Reactive Normal Non Reactive [facility] Comment on above: Performed By: #### L [id number] ####[facility] (DEFAULT)[address] [place] [address] LEGIONELLA CULTUREon 023 Bacteria identified Cx Nom (Unsp spec) NO GROWTH DAY 7 OF 7 Normal [facility] Comment on above: Performed By: #### L EGN ####[facility] (DEFAULT)[address] [place] [address] Bacteria identified Cx Nom (Unsp spec) NO GROWTH DAY 7 OF 7 Normal [facility] Comment on above: Order Comment: BAL l egionella culture Performed By: #### L EGN ####[facility] (DEFAULT)[address] [facility] [place] [address] LEGIONELLA PCRon 09-02-2023 Legionella species, Culture BAL RML Normal [facility] Comment on above: Performed By: #### Y LEGRP ####U [facility] (DEFAULT)[address] [place] [address] Legionella, pcr result Negative Normal Not Applicable [facility] Comment on above: Result Comment: ---- ADDITIONAL INFORMATION This test was developed and its performance characteristicsdetermined by [facility] in a manner consistent with CLIArequirements. This test has not been cleared or approved bythe U.S. Food and Drug Administration.Test Performed by:[address] [id number] Director: Rosendo Bose M.D. Ph.D.; CLIA# [id number] Performed By: #### Y LEGRP ####[facility] (DEFAULT)[address] [place] [address] LOWER RESPIRATORY CULTURE, B ACTERIALon 09-02-2023 Bacteria identified Cx Nom (Unsp spec) NO GROWTH DAY 2 OF 2 Normal [facility] Comment on above: Performed By: #### R ES ####[facility] (DEFAULT)[address] [place] [address] Microscopic observation Gram stain Nom (Unsp spec) Normal [facility] Comment on above: Result Comment: Cyto centrifuge preparationNeutrophils, RareRed Blood Cells PresentNo organisms seen Performed By: #### R ES ####[facility] (DEFAULT)[address] [place] [address] Bacteria identified Cx Nom (Unsp spec) NO GROWTH DAY 2 OF 2 Normal [facility] Comment on above: Order Comment: BAL b acterial respiratory culture Performed By: #### R ES ####[facility] (DEFAULT)[address] [place] [address] Microscopic observation Gram stain Nom (Unsp spec) Normal [facility] Comment on above: Order Comment: BAL b acterial respiratory culture Result Comment: Cyto centrifuge preparationNeutrophils, ModerateRed Blood Cells PresentNo organisms seen Performed By: #### R ES ####[facility] (DEFAULT)[address] [place] [address] MAGNESIUMon 09-02-2023 Interpretation and review of laboratory results Normal [facility] Magnesium [Mass/Vol] 1.7 mg/dL 1.6 - 2 .6 mg/dL [facility] Magnesium [Mass/Vol] 1.7 mg/dL Normal 1.6-2.[address] [facility] [facility] Comment on above: Performed By: #### C HM7, HFP, MGO ####[facility] (DEFAULT)[address] [place] [id number] No Panel Informationon 09-02 Interpretation and review of laboratory results Abnormal [facility] PNEUMOCYSTIS JIROVECI,PCRon 09-02-2023 PN Report Status DNR Normal [facility] Comment on above: Performed By: #### Y PNRP ####[facility] (DEFAULT)[address] [place] [address] PN Specimen Source BAL RML Normal [facility] Comment on above: Performed By: #### Y PNRP ####[facility] (DEFAULT)[address] [place] [address] Pneum jiroveci comment DNR Normal [facility] Comment on above: Performed By: #### Y PNRP ####[facility] (DEFAULT)[address] [place] [address] Pneumocystis jiroveci,PCR result Negative Normal Not Applicable [facility] Comment on above: Result Comment: ---- ADDITIONAL INFORMATION This test was developed and its performance characteristicsdetermined by [facility] in a manner consistent with CLIArflipClassirements. This test has not been cleared or approved by[facility] U.S. Food and Drug Administration.Test Performed by:[address] Director: Rosendo Bose M.D. Ph.D.; CLIA# [id number] Performed By: #### Y PNRP ####[facility] (DEFAULT)[address] [place] [address] PN Report Status DNR Normal [facility] Comment on above: Performed By: #### Y PNRP ####[facility] (DEFAULT)[address] [place] [address] PN Specimen Source BAL LLL Normal [facility] Comment on above: Performed By: #### Y PNRP ####[facility] (DEFAULT)[address] [place] [address] Pneum jiroveci comment DNR Normal [facility] Comment on above: Performed By: #### Y PNRP ####[facility] (DEFAULT)[address] [facility] [place] [address] Pneumocystis jiroveci,PCR result Negative Normal Not Applicable [facility] Comment on above: Result Comment: ---- ADDITIONAL INFORMATION This test was developed and its performance characteristicsdetermined by [facility] in a manner consistent with CLIArequirements. This test has not been cleared or approved bythe U.S. Food and Drug Administration.Test Performed by:[address] [address]Cph Director: Rosendo Bose M.D. Ph.D.; CLIA# [id number] Performed By: #### Y PNRP ####[facility] (DEFAULT)[address] [place] [address] TACROLIMUS LEVEL, TROUGH (DE E DRUG LEVEL)on 09-02-2023 Interpretation and review of laboratory results Normal [facility] Tacrolimus (Bld) [Mass/Vol] 4.2 ng/mL [facility] Tacrolimus, Trough 4.2 ng/mL Normal Bone Susana ow Transplant: 4.0-12.0, Therapeutic: 5.0-15.[address] [facility] Comment on above: Order Comment: Pleas e draw at specified interval PRIOR to dose. Do not hold dose to wait for level. Specimens batched twice per day, (M-F) and once per day weekendsMethod performed is a chemiluminescent microparticle immunoasssay on the [employer] i2000.The range is based on experience at [facility] and users should be aware that target concentrations vary widely depending on concomitant therapy, time post-transplant, and desired degree of immunosuppression. Performed By: #### T ACRO ####[facility] (DEFAULT)[address] [place] [address] CBC,PLATELETSon 09-01-2023 Erythrocyte distribution width (RBC) [Ratio] 13.4 % 10.9 - 14.3 % [facility] Hematocrit (Bld) [Volume fraction] 38.9 % Low 39.6 - 48.8 % [facility] Hemoglobin (Bld) [Mass/Vol] 12.7 g/dL Low 13.4 - 16.8 g/dL [facility] Interpretation and review of laboratory results Abnormal [facility] MCH (RBC) [Entitic mass] 27.6 pg 26.1 - 33.3 pg [facility] MCHC (RBC) [Mass/Vol] 32.6 g/dL 31.9 - 36.5 g/dL [facility] MCV (RBC) [Entitic vol] 84.6 fL 79.0 - 94.5 fL [facility] Platelet mean volume (Bld) [Entitic vol] 9.4 fL 8.7 - 12.3 fL [facility] Platelets (Bld) [#/Vol] 209 10*3/uL 146 - 337 K/uL [facility] RBC (Bld) [#/Vol] 4.60 10*6/uL [facility] WBC (Bld) [#/Vol] 4.41 10*3/uL 3.73 - 10. 10 K/uL [facility] Hematocrit (Bld) [Volume fraction] 38.9 % Low 39.6-48.[address] [facility] Comment on above: Performed By: #### H [facility] ####[facility] (DEFAULT)[address] [place] [address] Hemoglobin (Bld) [Mass/Vol] 12.7 g/dL Low 13.4-16.[address] [facility] Comment on above: Performed By: #### H EMO ####[facility] (DEFAULT)[address] [place] [address] MCV (RBC) [Entitic vol] 84.6 fL Normal 79.0-94.[address] [facility] Comment on above: Performed By: #### H EMOGC ####[facility] (DEFAULT)[address] [place] [address] Mean Cell Hgb 27.6 pg Normal 26.1-33.[address] [facility] Comment on above: Performed By: #### H EMOGC ####[facility] (DEFAULT)[address] [place] [address] Mean Cell Hgb Conc 32.6 g/dL Normal 31.9-36.5 [facility] Comment on above: Performed By: #### H EMOGC ####[facility] (DEFAULT)[address] [place] [address] Platelet mean volume (Bld) [Entitic vol] 9.4 fL Normal 8.7-12.[address] [facility] Comment on above: Performed By: #### H EMO ####[facility] (DEFAULT)[address] [place] [address] Platelets (Bld) [#/Vol] 209 10*3/uL Normal 146-[address] [facility] Comment on above: Performed By: #### H EMO ####[facility] (DEFAULT)[address] [place] [address] RBC (Bld) [#/Vol] 4.60 10*6/uL Normal 4.38-5.[address] [facility] Comment on above: Performed By: #### H [facility] ####[facility] (DEFAULT)[address] [place] [address] RBC Distribution 13.4 % Normal 10.9-14.3 [facility] Comment on above: Performed By: #### H [facility] ####[facility] (DEFAULT)[address] [place] [address] WBC (Bld) [#/Vol] 4.41 10*3/uL Normal 3.73-10.[address] [facility] Comment on above: Performed By: #### H EMO ####[facility] (DEFAULT)[address] [place] [address] CHEM 7 (LYTES,BUN,CREA,GLUC) on 09-01-2023 Anion gap [Moles/Vol] 14 mmol/L 7 - 17 mmol/L [facility] Chloride [Moles/Vol] 103 mmol/L 98 - 10 8 mmol/L [facility] CO2 [Moles/Vol] 21 mmol/L 21 - 31 mmol/L [facility] Creatinine [Mass/Vol] 1.16 mg/dL 0.70 - 1.30 mg/dL [facility] eGFR, CKD-EPI, Male 76 - PINF [facility] Glucose [Mass/Vol] 117 mg/dL High 70 - 99 mg/dL [facility] Osmolality Calc [Osmolality] 285 [facility] Potassium [Moles/Vol] 4.2 mmol/L 3.5 - 5.0 mmol/L [facility] Sodium [Moles/Vol] 134 mmol/L Low 135 - 145 mmol/L [facility] Urea nitrogen [Mass/Vol] 18 mg/dL 7 - 25 mg/dL [facility] Urea nitrogen/Creatinine [Mass ratio] 16 mg/mg [facility] Anion gap [Moles/Vol] 14 mmol/L Normal 7-[address] [facility] Comment on above: Performed By: #### H FP MGO, CHM7 ####[facility] (DEFAULT)[address] [place] [address] Chloride [Moles/Vol] 103 mmol/L Normal 98-[address] [facility] Comment on above: Performed By: #### H FP, MGO, CHM7 ####[facility] (DEFAULT)[address] [place] [address] CO2 [Moles/Vol] 21 mmol/L Normal 21-31 [facility] Comment on above: Performed By: #### H FP, MGO, CHM7 ####[facility] (DEFAULT)[address] [place] [address] Creatinine [Mass/Vol] 1.16 mg/dL Normal 0.70-1.[address] [facility] Comment on above: Performed By: #### H FP, MGO, CHM7 ####[facility] (DEFAULT)[address] [place] [address] GFR/1.73 sq M.predicted among non-blacks MDRD (S/P/Bld) [Vol rate/Area] 76 mL/min/{1.73_m2} Normal >=[address] [facility] Comment on above: Result Comment: Repo rted eGFR is based on the CKD-EPI 2020 equation using creatinine, age, and sex. Performed By: #### H DOMENICA MONCADA CHM7 ####[facility] (DEFAULT)[address] [place] [address] Glucose [Mass/Vol] 117 mg/dL High 70-99 [facility] Comment on above: Performed By: #### H ANTWAN MGO CHM7 ####[facility] (DEFAULT)[address] [facility] [address] Osmolality [Osmolality] 285 mosm/kg Normal 278-[address] [facility] Comment on above: Performed By: #### H ANTWAN MGO CHM7 ####[facility] (DEFAULT)[address] [place] [address] Potassium [Moles/Vol] 4.2 mmol/L Normal 3.5-5.[address] [facility] Comment on above: Performed By: #### H ANTWAN MGO CHM7 ####[facility] (DEFAULT)[address] [place] [address] Sodium [Moles/Vol] 134 mmol/L Low 135-145 [facility] Comment on above: Performed By: #### H FP MGO, CHM7 ####[facility] (DEFAULT)[address] [place] [address] Urea nitrogen [Mass/Vol] 18 mg/dL Normal 7-[address] [facility] Comment on above: Performed By: #### H FP MGO, CHM7 ####[facility] (DEFAULT)[address] [place] [address] Urea nitrogen/Creatinine [Mass ratio] 16 mg/mg Normal [facility] Comment on above: Performed By: #### H FP MGO, CHM7 ####[facility] (DEFAULT)[address] [place] [address] CRYPTOCOCCAL ANTIGENon 09-01 Cryptococcus sp Ag Ql (S) Negative Negative [facility] Interpretation and review of laboratory results Normal [facility] Cryptococcus Antigen,Serum Negative Normal Negative [facility] Comment on above: Performed By: #### C RAG ####[facility] (DEFAULT)[address] [place] [address] HEPATIC FUNCTION PANELon Albumin [Mass/Vol] 3.3 g/dL Low 3.5 - 5.0 g/dL [facility] ALP [Catalytic activity/Vol] 112 U/L 32 - 126 U/L [facility] ALT [Catalytic activity/Vol] 21 U/L 10 - 52 U/L [facility] AST [Catalytic activity/Vol] 29 U/L 10 - 39 U/L [facility] Bilirubin [Mass/Vol] 1.0 mg/dL NINF - 1.5 mg/dL [facility] Bilirubin.direct [Mass/Vol] 0.2 mg/dL NINF - 0.3 mg/dL [facility] Protein [Mass/Vol] 6.8 g/dL 6.4 - 8.3 g/dL [facility] Albumin [Mass/Vol] 3.3 g/dL Low 3.5-5.0 [facility] Comment on above: Performed By: #### H DOMENICA MONCADA CHM7 ####[facility] (DEFAULT)[address] [place] [address] ALP [Catalytic activity/Vol] 112 U/L Normal 32-[address] [facility] Comment on above: Performed By: #### H DOMENICA MONCADA CHM7 ####[facility] (DEFAULT)[address] [place] [address] ALT [Catalytic activity/Vol] 21 U/L Normal 10-[address] [facility] Comment on above: Performed By: #### H DOMENICA MONCADA CHM7 ####[facility] (DEFAULT)[address] [place] [address] AST [Catalytic activity/Vol] 29 U/L Normal 10-[address] [facility] Comment on above: Performed By: #### H DOMENICA MONCADA CHM7 ####[facility] (DEFAULT)[address] [place] [address] Bilirubin [Mass/Vol] 1.0 mg/dL Normal <1.[address] [facility] Comment on above: Performed By: #### H ANTWAN MGO, CHM7 ####[facility] (DEFAULT)[address] [place] [address] Bilirubin.indirect [Mass/Vol] 0.2 mg/dL Normal <0.[address] [facility] Comment on above: Performed By: #### H ANTWAN MGRogelio, CHM7 ####[facility] (DEFAULT)[address] [place] [address] Protein [Mass/Vol] 6.8 g/dL Normal 6.4-8.3 [facility] Comment on above: Performed By: #### Lydia MONCADA MGRogelio CHM7 ####[facility] (DEFAULT)[address] [place] [address] L. pneumophila 1 Ag IA Ql (U )Ordered By: Carolin Miles on 09-01-2023 Interpretation and review of laboratory results Normal [facility] LEGIONELLA URINARY AGOrdered By: Carolin Miles on 09-01-2023 L. pneumophila 1 Ag IA Ql (U) Negative Negative [facility] MAGNESIUMon 09-01-2023 Interpretation and review of laboratory results Normal [facility] Magnesium [Mass/Vol] 1.6 mg/dL 1.6 - 2 .6 mg/dL [facility] Magnesium [Mass/Vol] 1.6 mg/dL Normal 1.6-2.[address] [facility] Comment on above: Performed By: #### H ANTWAN MGO, CHM7 ####[facility] (DEFAULT)[address] [place] [address] No Panel Informationon 09-01 Interpretation and review of laboratory results Abnormal [facility] PARVOVIRUS (B19) DNA, PCR, B LOODon 09-01-2023 PARVOVIRUS B19 BY RAPID PCR Not detected Normal Not Detected [facility] Comment on above: Result Comment: The primers/probe used in this assay will detectparvovirus B19 and V9 (genotypes 1 # 3) but maynot detect parvovirus genotype 2. The majority ofcirculating Parvovirus B19 strains in the [facility] are genotype 1. Genotype 2 is not believed tocirculate widely in the [facility], but has beenassociated with similar clinical features as genotype1. Genotype 3 is most prevalent in some [facility].This test was developed and its analyticalperformance characteristics have been determinedby [employer] [place], [place].It has not been cleared or approved by the FDA. Thisassay has been validated pursuant to the CLIAregulations and is used for clinical purposes.Test Performed at:[facility] [place] [address]AivqgirRamon Benavides M.D., Ph.D.,Director of Laboratories Performed By: #### Y PRVP ####[facility] (DEFAULT)[address] [address] DE SPEC SOURCE Whole Blood Normal [facility] Comment on above: Performed By: #### Y PRVP ####[facility] (DEFAULT)[address] [address] ASPERGILLUS (GALACTOMANNAN), ANTIGENon 08-31-2023 Aspergillus Antigen <0.500 Normal <0.[address] [facility] Comment on above: Result Comment: ---- ADDITIONAL INFORMATION This is a qualitative test and the resulted index value isnot indicative of disease severity. Serial testing isrecommended for patients at high risk for invasiveaspergillosis.This assay was performed using the FDA-cleared [employer] Aspergillus Galactomannan EIA.Test Performed by:[facility] [place], [place] [address]Xzv Director: Rosendo Bose M.D. Ph.D.; CLIA# [id number] Performed By: #### Y ASPR ####[facility] (DEFAULT)[address] [place] [address] CBC,PLATELETSon 08-31-2023 Erythrocyte distribution width (RBC) [Ratio] 13.3 % 10.9 - 14.3 % [facility] Hematocrit (Bld) [Volume fraction] 39.4 % Low 39.6 - 48.8 % [facility] Hemoglobin (Bld) [Mass/Vol] 12.8 g/dL Low 13.4 - 16.8 g/dL [facility] Interpretation and review of laboratory results Abnormal [facility] MCH (RBC) [Entitic mass] 27.6 pg 26.1 - 33.3 pg [facility] MCHC (RBC) [Mass/Vol] 32.5 g/dL 31.9 - 36.5 g/dL [facility] MCV (RBC) [Entitic vol] 85.1 fL 79.0 - 94.5 fL [facility] Platelet mean volume (Bld) [Entitic vol] 9.6 fL 8.7 - 12.3 fL [facility] Platelets (Bld) [#/Vol] 228 10*3/uL 146 - 337 K/uL [facility] RBC (Bld) [#/Vol] 4.63 10*6/uL [facility] WBC (Bld) [#/Vol] 4.77 10*3/uL 3.73 - 10. 10 K/uL [facility] Hematocrit (Bld) [Volume fraction] 39.4 % Low 39.6-48.[address] [facility] Comment on above: Performed By: #### H [facility] ####[facility] (DEFAULT)[address] [place] [address] Hemoglobin (Bld) [Mass/Vol] 12.8 g/dL Low 13.4-16.[address] [facility] Comment on above: Performed By: #### H EMOGC ####U [facility] (DEFAULT)[address] [place] [address] MCV (RBC) [Entitic vol] 85.1 fL Normal 79.0-94.[address] [facility] Comment on above: Performed By: #### H EMOGC ####U [facility] (DEFAULT)[address] [place] [address] Mean Cell Hgb 27.6 pg Normal 26.1-33.[address] [facility] Comment on above: Performed By: #### H EMOGC ####[facility] (DEFAULT)[address] [place] [address] Mean Cell Hgb Conc 32.5 g/dL Normal 31.9-36.5 [facility] Comment on above: Performed By: #### H EMOGC ####[facility] (DEFAULT)[address] [facility] [place] [address] Platelet mean volume (Bld) [Entitic vol] 9.6 fL Normal 8.7-12.[address] [facility] Comment on above: Performed By: #### H EMOGC ####[facility] (DEFAULT)[address] [facility] [place] [address] Platelets (Bld) [#/Vol] 228 10*3/uL Normal 146-[address] [facility] Comment on above: Performed By: #### H EMOGC ####[facility] (DEFAULT)[address] [place] [address] RBC (Bld) [#/Vol] 4.63 10*6/uL Normal 4.38-5.[address] [facility] Comment on above: Performed By: #### H EMOGC ####[facility] (DEFAULT)[address] [place] [address] RBC Distribution 13.3 % Normal 10.9-14.3 [facility] Comment on above: Performed By: #### H [facility] ####[facility] (DEFAULT)[address] [place] [address] WBC (Bld) [#/Vol] 4.77 10*3/uL Normal 3.73-10.[address] [facility] Comment on above: Performed By: #### H [facility] ####[facility] (DEFAULT)[address] [place] [address] CHEM 7 (LYTES,BUN,CREA,GLUC) on 08-31-2023 Anion gap [Moles/Vol] 13 mmol/L 7 - 17 mmol/L [facility] Chloride [Moles/Vol] 102 mmol/L 98 - 10 8 mmol/L [facility] CO2 [Moles/Vol] 23 mmol/L 21 - 31 mmol/L [facility] Creatinine [Mass/Vol] 1.37 mg/dL High 0.70 - 1.30 mg/dL [facility] eGFR, CKD-EPI, Male 62 - PINF [facility] Glucose [Mass/Vol] 112 mg/dL High 70 - 99 mg/dL [facility] Osmolality Calc [Osmolality] 284 [facility] Potassium [Moles/Vol] 4.4 mmol/L 3.5 - 5.0 mmol/L [facility] Sodium [Moles/Vol] 134 mmol/L Low 135 - 145 mmol/L [facility] Urea nitrogen [Mass/Vol] 16 mg/dL 7 - 25 mg/dL [facility] Urea nitrogen/Creatinine [Mass ratio] 12 mg/mg [facility] Anion gap [Moles/Vol] 13 mmol/L Normal 7-[address] [facility] Comment on above: Performed By: #### M GO, HFP, FERIB, PROCAL, CHM7 ####[facility] (DEFAULT)[address] [place] [address] Chloride [Moles/Vol] 102 mmol/L Normal 98-[address] [facility] Comment on above: Performed By: #### M GO, HFP, FERIB, PROCAL, CHM7 ####[facility] (DEFAULT)[address] [place] [address] CO2 [Moles/Vol] 23 mmol/L Normal 21-31 [facility] Comment on above: Performed By: #### M GO, HFP, FERIB, PROCAL, CHM7 ####[facility] (DEFAULT)[address] [place] [address] Creatinine [Mass/Vol] 1.37 mg/dL High 0.70-1.[address] [facility] Comment on above: Performed By: #### M GO, HFP, FERIB, PROCAL, CHM7 ####[facility] (DEFAULT)[address] [place] [address] GFR/1.73 sq M.predicted among non-blacks MDRD (S/P/Bld) [Vol rate/Area] 62 mL/min/{1.73_m2} Normal >=[address] [facility] Comment on above: Result Comment: Repo rted eGFR is based on the CKD-EPI 2020 equation using creatinine, age, and sex. Performed By: #### M GO, HFP, FERIB, PROCAL, CHM7 ####[facility] (DEFAULT)[address] [place] [address] Glucose [Mass/Vol] 112 mg/dL High 70-99 [facility] Comment on above: Performed By: #### M GO, HFP, FERIB, PROCAL, CHM7 ####[facility] (DEFAULT)[address] [place], [place] [address] [address] Osmolality [Osmolality] 284 mosm/kg Normal 278-[address] [facility] Comment on above: Performed By: #### M GO, HFP, FERIB, PROCAL, CHM7 ####[facility] (DEFAULT)[address] [place] [address] Potassium [Moles/Vol] 4.4 mmol/L Normal 3.5-5.[address] [facility] Comment on above: Performed By: #### M GO, HFP, FERIB, PROCAL, CHM7 ####[facility] (DEFAULT)[address] [place] [address] Sodium [Moles/Vol] 134 mmol/L Low 135-145 [facility] Comment on above: Performed By: #### M GO, HFP, FERIB, PROCAL, CHM7 ####[facility] (DEFAULT)[address] [place] [address] Urea nitrogen [Mass/Vol] 16 mg/dL Normal 7-[address] [facility] Comment on above: Performed By: #### M GO, HFP, FERIB, PROCAL, CHM7 ####[facility] (DEFAULT)[address] [facility] [place] [address] Urea nitrogen/Creatinine [Mass ratio] 12 mg/mg Normal [facility] Comment on above: Performed By: #### M GO, HFP, FERIB, PROCAL, CHM7 ####[facility] (DEFAULT)[address] [facility] [place] [address] [place] ABDOMEN/PELVIS WITHOUT CO NTRASTon 08-31-2023 CT ABDOMEN/PELVIS WITHOUT CONTRAST Normal [facility] CT Abdomen and Pelvis WO con traston 08-31-2023 RADIOLOGY RADIOLOGY [facility] Radiology Study observation (narrative) [facility] CT Abdomen and Pelvis WO con trastOrdered By: Chavez Larkin on 08-31-2023 [facility] Work Phone: CT CHEST WITHOUT CONTRASTon 08-31-2023 CT CHEST WITHOUT CONTRAST Normal [facility] CT Chest WO contraston 08-31 RADIOLOGY RADIOLOGY [facility] Radiology Study observation (narrative) [facility] CT Chest WO contrastOrdered By: Daisha Patterson on 08-31-2023 [facility] Work Phone: FERRITINon 08-31-2023 Ferritin [Mass/Vol] 409.0 ng/mL High 10.5 - 3 07.3 ng/mL [facility] Interpretation and review of laboratory results Abnormal [facility] Ferritin [Mass/Vol] 409.0 ng/mL High 10.5-307.[address] [facility] Comment on above: Performed By: #### M GO, HFP, FERIB, PROCAL, CHM7 ####[facility] (DEFAULT)[address] [place] [address] HEPATIC FUNCTION PANELon Albumin [Mass/Vol] 3.3 g/dL Low 3.5 - 5.0 g/dL [facility] ALP [Catalytic activity/Vol] 113 U/L 32 - 126 U/L [facility] ALT [Catalytic activity/Vol] 25 U/L 10 - 52 U/L [facility] AST [Catalytic activity/Vol] 31 U/L 10 - 39 U/L [facility] Bilirubin [Mass/Vol] 1.1 mg/dL NINF - 1.5 mg/dL [facility] Bilirubin.direct [Mass/Vol] 0.3 mg/dL High NINF - 0.3 mg/dL [facility] Protein [Mass/Vol] 7.0 g/dL 6.4 - 8.3 g/dL [facility] Albumin [Mass/Vol] 3.3 g/dL Low 3.5-5.0 [facility] Comment on above: Performed By: #### M GO, HFP, FERIB, PROCAL, CHM7 ####[facility] (DEFAULT)[address] [place] [address] ALP [Catalytic activity/Vol] 113 U/L Normal 32-[address] [facility] Comment on above: Performed By: #### M GO, HFP, FERIB, PROCAL, CHM7 ####[facility] (DEFAULT)[address] [place] [address] ALT [Catalytic activity/Vol] 25 U/L Normal 10-[address] [facility] Comment on above: Performed By: #### M GO, HFP, FERIB, PROCAL, CHM7 ####[facility] (DEFAULT)[address] [place] [address] AST [Catalytic activity/Vol] 31 U/L Normal 10-[address] [facility] Comment on above: Performed By: #### M GO, HFP, FERIB, PROCAL, CHM7 ####[facility] (DEFAULT)[address] [place] [address] Bilirubin [Mass/Vol] 1.1 mg/dL Normal <1.[address] [facility] Comment on above: Performed By: #### M GO, HFP, FERIB, PROCAL, CHM7 ####[facility] (DEFAULT)[address] [place] [address] Bilirubin.indirect [Mass/Vol] 0.3 mg/dL High <0.[address] [facility] Comment on above: Performed By: #### M GO, HFP, FERIB, PROCAL, CHM7 ####[facility] (DEFAULT)[address] [place] [address] Protein [Mass/Vol] 7.0 g/dL Normal 6.4-8.3 [facility] Comment on above: Performed By: #### M GO, HFP, FERIB, PROCAL, CHM7 ####[facility] (DEFAULT)[address] [place] [address] LEGIONELLA URINARY AGon Legionella Urinary Antigen Negative Normal Negative [facility] Comment on above: Performed By: #### L EGION ####[facility] (DEFAULT)[address] [place] [address] MAGNESIUMon 08-31-2023 Interpretation and review of laboratory results Normal [facility] Magnesium [Mass/Vol] 1.7 mg/dL 1.6 - 2 .6 mg/dL [facility] Magnesium [Mass/Vol] 1.7 mg/dL Normal 1.6-2.[address] [facility] Comment on above: Performed By: #### M TAVO BLOOM, FERIB, PROCAL, CHM7 ####[facility] (DEFAULT)[address] [place] [address] No Panel Informationon 08-31 Interpretation and review of laboratory results Abnormal [facility] PROCALCITONINon 08-31-2023 Interpretation and review of laboratory results Normal [facility] Procalcitonin [Mass/Vol] 0.23 ng/mL NINF - 0.50 ng/mL [facility] Procalcitonin 0.23 ng/mL Normal <0.[address] [facility] Comment [...] and trend procalcitonin in various clinical settings. [email or web address] [email or web address] common cutoffs associated with bacterial infections are as follows.Respiratory tract infections: >0.25 ng/mLSepsis/septic shock: >0.5 ng/mLProcalcitonin should not be used alone as a diagnostic tool, however. All procalcitonin results should be interpreted in association with the patients clinical condition and all laboratory findings. Performed By: #### M MERLE, HFP, FERIB, PROCAL, CHM7 ####[facility] (DEFAULT)[address] [place] [address] TACROLIMUS LEVEL, TROUGH (DE E DRUG LEVEL)Ordered By: Yanira Marcum on 08-31-2023 Interpretation and review of laboratory results Normal [facility] Tacrolimus (Bld) [Mass/Vol] 5.9 ng/mL [facility] TACROLIMUS LEVEL, TROUGH (DE E DRUG LEVEL)on 08-31-2023 Tacrolimus, Trough 5.9 ng/mL Normal Bone Susana ow Transplant: 4.0-12.0, Therapeutic: 5.0-15.[address] [facility] Comment on above: Order Comment: Pleas e draw at specified interval PRIOR to dose. Do not hold dose to wait for level. Specimens batched twice per day, (M-F) and once per day weekendsMethod performed is a chemiluminescent microparticle immunoasssay on the [employer] Implementation Architect i2000.The range is based on experience at [facility] and users should be aware that target concentrations vary widely depending on concomitant therapy, time post-transplant, and desired degree of immunosuppression. Performed By: #### T ACRO ####[facility] (DEFAULT)[address] [place] [address] URINE CULTUREOrdered By: Jorge Lozano on 08-31-2023 Bacteria identified Cx Nom (Unsp spec) No Growth [facility] DARYL AURIS SCREEN BY PCRO rdered By: Mynor Alejandro on 08-30-2023 Daryl auris Screen by PCR Not detected Not Detected [facility] Interpretation and review of laboratory results Normal [facility] CBC,PLATELETSon 08-30-2023 Erythrocyte distribution width (RBC) [Ratio] 13.3 % 10.9 - 14.3 % [facility] Hematocrit (Bld) [Volume fraction] 41.3 % 39.6 - 48.8 % [facility] Hemoglobin (Bld) [Mass/Vol] 13.2 g/dL Low 13.4 - 16.8 g/dL [facility] Interpretation and review of laboratory results Abnormal [facility] MCH (RBC) [Entitic mass] 27.3 pg 26.1 - 33.3 pg [facility] MCHC (RBC) [Mass/Vol] 32.0 g/dL 31.9 - 36.5 g/dL [facility] MCV (RBC) [Entitic vol] 85.5 fL 79.0 - 94.5 fL [facility] Platelet mean volume (Bld) [Entitic vol] 9.2 fL 8.7 - 12.3 fL [facility] Platelets (Bld) [#/Vol] 235 10*3/uL 146 - 337 K/uL [facility] RBC (Bld) [#/Vol] 4.83 10*6/uL [facility] WBC (Bld) [#/Vol] 4.96 10*3/uL 3.73 - 10. 10 K/uL [facility] Hematocrit (Bld) [Volume fraction] 41.3 % Normal 39.6-48.[address] [facility] Comment on above: Performed By: #### H [facility] ####[facility] (DEFAULT)[address] [place] [address] Hemoglobin (Bld) [Mass/Vol] 13.2 g/dL Low 13.4-16.[address] [facility] Comment on above: Performed By: #### H EMO ####[facility] (DEFAULT)[address] [place] [address] MCV (RBC) [Entitic vol] 85.5 fL Normal 79.0-94.[address] [facility] Comment on above: Performed By: #### H EMO ####[facility] (DEFAULT)[address] [place] [address] Mean Cell Hgb 27.3 pg Normal 26.1-33.[address] [facility] Comment on above: Performed By: #### H EMO ####[facility] (DEFAULT)[address] [place] [address] Mean Cell Hgb Conc 32.0 g/dL Normal 31.9-36.5 [facility] Comment on above: Performed By: #### H EMO ####[facility] (DEFAULT)[address] [place] [address] Platelet mean volume (Bld) [Entitic vol] 9.2 fL Normal 8.7-12.[address] [facility] Comment on above: Performed By: #### H EMO ####[facility] (DEFAULT)[address] [place] [address], [place] [address] Platelets (Bld) [#/Vol] 235 10*3/uL Normal 146-[address] [facility] Comment on above: Performed By: #### H EMO ####[facility] (DEFAULT)[address] [place] [address] RBC (Bld) [#/Vol] 4.83 10*6/uL Normal 4.38-5.[address] [facility] Comment on above: Performed By: #### H EMO ####[facility] (DEFAULT)[address] [place] [address] RBC Distribution 13.3 % Normal 10.9-14.3 [facility] Comment on above: Performed By: #### H EMO ####[facility] (DEFAULT)[address] [place] [address] WBC (Bld) [#/Vol] 4.96 10*3/uL Normal 3.73-10.[address] [facility] Comment on above: Performed By: #### H EMO ####[facility] (DEFAULT)[address] [place] [phone] CHEM 7 (LYTES,BUN,CREA,GLUC) on 08-30-2023 Anion gap [Moles/Vol] 14 mmol/L 7 - 17 mmol/L [facility] Chloride [Moles/Vol] 102 mmol/L 98 - 10 8 mmol/L [facility] CO2 [Moles/Vol] 20 mmol/L Low 21 - 31 mmol/L [facility] Creatinine [Mass/Vol] 1.56 mg/dL High 0.70 - 1.30 mg/dL [facility] eGFR, CKD-EPI, Male 54 Low - PINF [facility] Glucose [Mass/Vol] 123 mg/dL High 70 - 99 mg/dL [facility] Osmolality Calc [Osmolality] [facility] Potassium [Moles/Vol] 4.3 mmol/L 3.5 - 5.0 mmol/L [facility] Sodium [Moles/Vol] 132 mmol/L Low 135 - 145 mmol/L [facility] Urea nitrogen [Mass/Vol] 16 mg/dL 7 - 25 mg/dL [facility] Urea nitrogen/Creatinine [Mass ratio] 10 mg/mg [facility] Anion gap [Moles/Vol] 14 mmol/L Normal 7-[address] [facility] Comment on above: Performed By: #### NATHANIEL RAMÍREZ, HFP ####[facility] (DEFAULT)[address] [place] [address] Chloride [Moles/Vol] 102 mmol/L Normal 98-[address] [facility] Comment on above: Performed By: #### NATHANIEL RAMÍREZ, HFP ####[facility] (DEFAULT)[address] [place] [address] CO2 [Moles/Vol] 20 mmol/L Low 21-31 [facility] Comment on above: Performed By: #### NATHANIEL RAMÍREZ, HFP ####[facility] (DEFAULT)[address] [place] [address] Creatinine [Mass/Vol] 1.56 mg/dL High 0.70-1.[address] [facility] Comment on above: Performed By: #### NATHANIEL RAMÍREZ, HFP ####[facility] (DEFAULT)[address] [place] [address] GFR/1.73 sq M.predicted among non-blacks MDRD (S/P/Bld) [Vol rate/Area] 53 mL/min/{1.73_m2} Low >=[address] [facility] Comment on above: Result Comment: Repo rted eGFR is based on the CKD-EPI 2020 equation using creatinine, age, and sex. Performed By: #### NATHANIEL RAMÍREZ, HFP ####[facility] (DEFAULT)[address] [place] [address] Glucose [Mass/Vol] 123 mg/dL High 70-99 [facility] Comment on above: Performed By: #### NATHANIEL RAMÍREZ, HFP ####[facility] (DEFAULT)[address] [place] [address] Osmolality [Osmolality] 281 mosm/kg Normal 278-[address] [facility] Comment on above: Performed By: #### NATHANIEL RAMÍREZ, HFP ####[facility] (DEFAULT)[address] [place] [address] Potassium [Moles/Vol] 4.3 mmol/L Normal 3.5-5.[address] [facility] Comment on above: Performed By: #### NATHANIEL RAMÍREZ, HFP ####U [facility] (DEFAULT)[address] [place] [address] Sodium [Moles/Vol] 132 mmol/L Low 135-145 [facility] Comment on above: Performed By: #### NATHANIEL RAMÍREZ, HFP ####U [facility] (DEFAULT)[address] [place] [address] Urea nitrogen [Mass/Vol] 16 mg/dL Normal 7-[address] [facility] Comment on above: Performed By: #### NATHANIEL RAMÍREZ, HFP ####U [facility] (DEFAULT)[address] [place] [address] Urea nitrogen/Creatinine [Mass ratio] 10 mg/mg Normal [facility] Comment on above: Performed By: #### NATHANIEL RAMÍREZ, HFP ####U [facility] (DEFAULT)[address] [place] [address] EXTRA MICROon 08-30-2023 [facility] HEPATIC FUNCTION PANELon Albumin [Mass/Vol] 3.7 g/dL 3.5 - 5.0 g/dL [facility] ALP [Catalytic activity/Vol] 115 U/L 32 - 126 U/L [facility] ALT [Catalytic activity/Vol] 22 U/L 10 - 52 U/L [facility] AST [Catalytic activity/Vol] 34 U/L 10 - 39 U/L [facility] Bilirubin [Mass/Vol] 1.2 mg/dL [facility] mg/dL [facility] Bilirubin.direct [Mass/Vol] 0.3 mg/dL High NINF - 0.3 mg/dL [facility] Protein [Mass/Vol] 7.7 g/dL 6.4 - 8.3 g/dL [facility] Albumin [Mass/Vol] 3.7 g/dL Normal 3.5-5.0 [facility] Comment on above: Performed By: #### Rod BLOOM CHM7, HFP ####[facility] (DEFAULT)[address] [place] [address] ALP [Catalytic activity/Vol] 115 U/L Normal 32-[address] [facility] Comment on above: Performed By: #### Rod BLOOM CHM7, HFP ####[facility] (DEFAULT)[address] [place] [address] ALT [Catalytic activity/Vol] 22 U/L Normal 10-[address] [facility] Comment on above: Performed By: #### Rod BLOOM CHM7, HFP ####[facility] (DEFAULT)[address] [place] [address] AST [Catalytic activity/Vol] 34 U/L Normal 10-[address] [facility] Comment on above: Performed By: #### M MERLE CHM7, HFP ####[facility] (DEFAULT)[address] [place] [address] Bilirubin [Mass/Vol] 1.2 mg/dL Normal <1.[address] [facility] Comment on above: Performed By: #### NATHANIEL RAMÍREZ, HFP ####[facility] (DEFAULT)[address] [place] [address] Bilirubin.indirect [Mass/Vol] 0.3 mg/dL High <0.[address] [facility] Comment on above: Performed By: #### NATHANIEL RAMÍREZ, HFP ####[facility] (DEFAULT)[address] [place] [address] Protein [Mass/Vol] 7.7 g/dL Normal 6.4-8.3 [facility] Comment on above: Performed By: #### NATHANIEL RAMÍREZ, HFP ####[facility] (DEFAULT)[address] [place] [address] MAGNESIUMon 08-30-2023 Interpretation and review of laboratory results Normal [facility] Magnesium [Mass/Vol] 1.8 mg/dL 1.6 - 2 .6 mg/dL [facility] Magnesium [Mass/Vol] 1.8 mg/dL Normal 1.6-2.[address] [facility] Comment on above: Performed By: #### NATHANIEL RAMÍREZ, HFP ####[facility] (DEFAULT)[address] [place] [address] No Panel Informationon 08-30 Interpretation and review of laboratory results Abnormal [facility] CBC,PLATELETSon 08-29-2023 Erythrocyte distribution width (RBC) [Ratio] 13.4 % 10.9 - 14.3 % [facility] Hematocrit (Bld) [Volume fraction] 37.6 % Low 39.6 - 48.8 % [facility] Hemoglobin (Bld) [Mass/Vol] 12.2 g/dL Low 13.4 - 16.8 g/dL [facility] Interpretation and review of laboratory results Abnormal [facility] MCH (RBC) [Entitic mass] 27.6 pg 26.1 - 33.3 pg [facility] MCHC (RBC) [Mass/Vol] 32.4 g/dL 31.9 - 36.5 g/dL [facility] MCV (RBC) [Entitic vol] 85.1 fL 79.0 - 94.5 fL [facility] Platelet mean volume (Bld) [Entitic vol] 9.4 fL 8.7 - 12.3 fL [facility] Platelets (Bld) [#/Vol] 233 10*3/uL 146 - 337 K/uL [facility] RBC (Bld) [#/Vol] 4.42 10*6/uL [facility] WBC (Bld) [#/Vol] 4.92 10*3/uL 3.73 - 10. 10 K/uL [facility] Hematocrit (Bld) [Volume fraction] 37.6 % Low 39.6-48.[address] [facility] Comment on above: Performed By: #### H [facility] ####[facility] (DEFAULT)[address] [place] [address] Hemoglobin (Bld) [Mass/Vol] 12.2 g/dL Low 13.4-16.[address] [facility] Comment on above: Performed By: #### H EMO ####[facility] (DEFAULT)[address] [place] [address] MCV (RBC) [Entitic vol] 85.1 fL Normal 79.0-94.[address] [facility] Comment on above: Performed By: #### H EMOGC ####[facility] (DEFAULT)[address] [place] [address] Mean Cell Hgb 27.6 pg Normal 26.1-33.[address] [facility] Comment on above: Performed By: #### H EMOGC ####[facility] (DEFAULT)[address] [place] [address] Mean Cell Hgb Conc 32.4 g/dL Normal 31.9-36.5 [facility] Comment on above: Performed By: #### H EMO ####[facility] (DEFAULT)[address] [place] [address] Platelet mean volume (Bld) [Entitic vol] 9.4 fL Normal 8.7-12.[address] [facility] Comment on above: Performed By: #### H EMO ####[facility] (DEFAULT)[address] [place] [place] [address] Platelets (Bld) [#/Vol] 233 10*3/uL Normal 146-[address] [facility] Comment on above: Performed By: #### H EMOGC ####[facility] (DEFAULT)[address] [place] [address] RBC (Bld) [#/Vol] 4.42 10*6/uL Normal 4.38-5.[address] [facility] Comment on above: Performed By: #### H EMO ####[facility] (DEFAULT)[address] [place] [address] RBC Distribution 13.4 % Normal 10.9-14.3 [facility] Comment on above: Performed By: #### H EMOGC ####[facility] (DEFAULT)[address] [place] [address] WBC (Bld) [#/Vol] 4.92 10*3/uL Normal 3.73-10.[address] [facility] Comment on above: Performed By: #### H EMOGC ####[facility] (DEFAULT)[address] [place] [address] CHEM 7 (LYTES,BUN,CREA,GLUC) on 08-29-2023 Anion gap [Moles/Vol] 13 mmol/L 7 - 17 mmol/L [facility] Chloride [Moles/Vol] 105 mmol/L 98 - 10 8 mmol/L [facility] CO2 [Moles/Vol] 20 mmol/L Low 21 - 31 mmol/L [facility] Creatinine [Mass/Vol] 1.55 mg/dL High 0.70 - 1.30 mg/dL [facility] eGFR, CKD-EPI, Male 55 Low - PINF [facility] Glucose [Mass/Vol] 108 mg/dL High 70 - 99 mg/dL [facility] Osmolality Calc [[facility]olality] [facility] Potassium [Moles/Vol] 4.5 mmol/L 3.5 - 5.0 mmol/L [facility] Sodium [Moles/Vol] 133 mmol/L Low 135 - 145 mmol/L [facility] Urea nitrogen [Mass/Vol] 19 mg/dL 7 - 25 mg/dL [facility] Urea nitrogen/Creatinine [Mass ratio] 12 mg/mg [facility] Anion gap [Moles/Vol] 13 mmol/L Normal 7-[address] [facility] Comment on above: Performed By: #### Rod GO, CHM7, HFP, GGTB ####[facility] (DEFAULT)[address] [place] [address] Chloride [Moles/Vol] 105 mmol/L Normal 98-[address] [facility] Comment on above: Performed By: #### Rod GO, CHM7, HFP, GGTB ####[facility] (DEFAULT)[address] [place] [address] CO2 [Moles/Vol] 20 mmol/L Low 21-31 [facility] Comment on above: Performed By: #### M GO, CHM7, HFP, GGTB ####[facility] (DEFAULT)[address] [place] [address] Creatinine [Mass/Vol] 1.55 mg/dL High 0.70-1.[address] [facility] Comment on above: Performed By: #### M GO, CHM7, HFP, GGTB ####[facility] (DEFAULT)[address] [place] [address] GFR/1.73 sq M.predicted among non-blacks MDRD (S/P/Bld) [Vol rate/Area] 54 mL/min/{1.73_m2} Low >=[address] [facility] Comment on above: Result Comment: Repo rted eGFR is based on the CKD-EPI 2020 equation using creatinine, age, and sex. Performed By: #### M GO, CHM7, HFP, GGTB ####[facility] (DEFAULT)[address] [facility] [place] [address] Glucose [Mass/Vol] 108 mg/dL High 70-99 [facility] Comment on above: Performed By: #### Rod BLOOM, CHM7, HFP, GGTB ####[facility] (DEFAULT)[address] [place] [address] Osmolality [Osmolality] 283 mosm/kg Normal 278-[address] [facility] Comment on above: Performed By: #### Rod GO, CHM7, HFP, GGTB ####[facility] (DEFAULT)[address] [place] [address] Potassium [Moles/Vol] 4.5 mmol/L Normal 3.5-5.[address] [facility] Comment on above: Performed By: #### M GO, CHM7, HFP, GGTB ####[facility] (DEFAULT)[address] [place] [address] Sodium [Moles/Vol] 133 mmol/L Low 135-145 [facility] Comment on above: Performed By: #### M GO, CHM7, HFP, GGTB ####[facility] (DEFAULT)[address] [place] [address] Urea nitrogen [Mass/Vol] 19 mg/dL Normal 7-[address] [facility] Comment on above: Performed By: #### M GO, CHM7, HFP, GGTB ####[facility] (DEFAULT)[address] [place] [address] Urea nitrogen/Creatinine [Mass ratio] 12 mg/mg Normal [facility] Comment on above: Performed By: #### M GO, CHM7, HFP, GGTB ####[facility] (DEFAULT)[address] [place] [address] GGTon 08-29-2023 Gamma glutamyl transferase [Catalytic activity/Vol] 64 U/L 8 - 64 U/L [facility] Interpretation and review of laboratory results Normal [facility] Gamma glutamyl transferase [Catalytic activity/Vol] 64 U/L Normal 8-[address] [facility] Comment on above: Performed By: #### M GO, CHM7, HFP, GGTB ####U [facility] (DEFAULT)[address] [place] [address] HEPATIC FUNCTION PANELon Albumin [Mass/Vol] 3.3 g/dL Low 3.5 - 5.0 g/dL [facility] ALP [Catalytic activity/Vol] 103 U/L 32 - 126 U/L [facility] ALT [Catalytic activity/Vol] 18 U/L 10 - 52 U/L [facility] AST [Catalytic activity/Vol] 27 U/L 10 - 39 U/L [facility] Bilirubin [Mass/Vol] 1.1 mg/dL [facility]/dL [facility] Bilirubin.direct [Mass/Vol] 0.3 mg/dL High NINF - 0.3 mg/dL [facility] Protein [Mass/Vol] 6.8 g/dL 6.4 - 8.3 g/dL [facility] Albumin [Mass/Vol] 3.3 g/dL Low 3.5-5.0 [facility] Comment on above: Performed By: #### M GO, CHM7, HFP, GGTB ####U [facility] (DEFAULT)[address] [place] [address] ALP [Catalytic activity/Vol] 103 U/L Normal 32-[address] [facility] Comment on above: Performed By: #### M GO, CHM7, HFP, GGTB ####[facility] (DEFAULT)[address] [place] [address] ALT [Catalytic activity/Vol] 18 U/L Normal 10-[address] [facility] Comment on above: Performed By: #### M GO, CHM7, HFP, GGTB ####[facility] (DEFAULT)[address] [place] [address] AST [Catalytic activity/Vol] 27 U/L Normal 10-[address] [facility] Comment on above: Performed By: #### M GO, CHM7, HFP, GGTB ####[facility] (DEFAULT)[address] [place] [address] Bilirubin [Mass/Vol] 1.1 mg/dL Normal <1.[address] [facility] Comment on above: Performed By: #### M GO, CHM7, HFP, GGTB ####[facility] (DEFAULT)[address] [place] [address] Bilirubin.indirect [Mass/Vol] 0.3 mg/dL High <0.[address] [facility] Comment on above: Performed By: #### M GO, CHM7, HFP, GGTB ####[facility] (DEFAULT)[address] [place] [address] Protein [Mass/Vol] 6.8 g/dL Normal 6.4-8.3 [facility] Comment on above: Performed By: #### M GO, CHM7, HFP, GGTB ####[facility] (DEFAULT)[address] [place] [address] HISTOPLASMA AND BLASTOMYCES ANTIGEN, ENZYME IMMUNOASSAY, SERMon 08-29-2023 Histoplasma/Blastomy antonia Ag Result Detected Invalid Interpretation Code Not Detected [facility] Comment on above: Result Comment: Anti gen from Histoplasma or Blastomyces (unable todifferentiate) detected. Result should be correlated withclinical presentation, exposure history, and otherdiagnostic procedures, including culture, serology,histopathology, and/or radiographic findings, to aid in thedifferentiation between histoplasmosis and blastomycosis.CRITICAL RESULT Performed By: #### H IBAG ####[facility] (DEFAULT)[address] [place] [address] Histoplasma/Blastomy antonia Ag Value 5.3 ng/mL Normal [facility] Comment on above: Result Comment: ---- ADDITIONAL INFORMATION This test was developed and its performance characteristicsdetermined by [facility] in a manner consistent with CLIArequirements. This test has not been cleared or approved bythe U.S. Food and Drug Administration.Test Performed by:[place] [id number] Director: Rosendo Bose M.D. Ph.D.; CLIA# [id number] Performed By: #### H IBAG ####[facility] (DEFAULT)[address] [place] [address], [place] [address] HISTOPLASMA ANTIGEN,URINEon 08-29-2023 HISTOPLASM AG, URINE Not detected Normal Not Detected [facility] Comment on above: Result Comment: No H istoplasma antigen detected.False negative results may occur. Repeat testing on anew specimen should be considered if clinically indicated. Performed By: #### Y HISTG ####[facility] (DEFAULT)[address] [place], [place] [address], [place] [address] Histoplasma Ag Value Not detected Normal [facility] Comment on above: Result Comment: ---- ADDITIONAL INFORMATION This test has been modified from the licensed practical nurse instructor'sinstructions. Its performance characteristics weredetermined by [facility] in a manner consistent withCLIA requirements. This test has not been cleared orapproved by the U.S. Food and Drug Administration.Test Performed by:[address] [id number] Director: Rosendo Bose M.D. Ph.D.; CLIA# [id number] Performed By: #### Y HISTG ####[facility] (DEFAULT)[address] [place] [address] MAGNESIUMon 08-29-2023 Interpretation and review of laboratory results Normal [facility] Magnesium [Mass/Vol] 1.7 mg/dL 1.6 - 2 .6 mg/dL [facility] Magnesium [Mass/Vol] 1.7 mg/dL Normal 1.6-2.[address] [facility] Comment on above: Performed By: #### M GO, CHM7, HFP, GGTB ####[facility] (DEFAULT)[address] [place] [id number] No Panel Informationon 08-29 Interpretation and review of laboratory results Abnormal [facility] PT,INR,PTTon 08-29-2023 aPTT Coag (PPP) [Time] 29.3 s [facility] INR Coag (Bld) [Relative time] 1.1 {INR} 0.9 - 1.1 [facility] Interpretation and review of laboratory results Normal [facility] PT Coag (PPP) [Time] 13.8 s [facility] aPTT Coag (Bld) [Time] 29.3 s Normal 24.0-34.[address] [facility] Comment on above: Performed By: #### P TPTT ####[facility] (DEFAULT)[address] [place] [address] INR Coag (PPP) [Relative time] 1.1 {INR} Normal 0.9-1.[address] [facility] Comment on above: Performed By: #### P TPTT ####[facility] (DEFAULT)[address] [place] [address] PT Coag (PPP) [Time] 13.8 s Normal 11.9-14.[address] [facility] Comment on above: Performed By: #### P TPTT ####[facility] (DEFAULT)[address] [place] [address] Portable XR Chest Viewson RADIOLOGY RADIOLOGY [facility] Portable XR Chest ViewsOrder ed By: Gerald Baer on 08-29-2023 [facility] Work Phone: TACROLIMUS LEVEL, TROUGH (DE E DRUG LEVEL)on 08-29-2023 Interpretation and review of laboratory results Normal [facility] Tacrolimus (Bld) [Mass/Vol] 8.9 ng/mL [facility] Tacrolimus, Trough 8.9 ng/mL Normal [facility] Susana ow Transplant: 4.0-12.0, Therapeutic: 5.0-15.[address] [facility] Comment on above: Order Comment: Pleas e draw at specified interval PRIOR to dose. Do not hold dose to wait for level. Specimens batched twice per day, (M-F) and once per day weekendsMethod performed is a chemiluminescent microparticle immunoasssay on the [employer] i2000.The range is based on experience at [facility] and users should be aware that target concentrations vary widely depending on concomitant therapy, time post-transplant, and desired degree of immunosuppression. Performed By: #### T ACRO ####[facility] (DEFAULT)[address] [place] [address] Tacrolimus, Trough 8.7 ng/mL Normal [facility] ow Transplant: 4.0-12.0, Therapeutic: 5.0-15.[address] [facility] Comment on above: Order Comment: Pleas e draw at specified interval PRIOR to dose. Do not hold dose to wait for level. Specimens batched twice per day, (M-F) and once per day weekendsMethod performed is a chemiluminescent microparticle immunoasssay on the [employer] i2000.The range is based on experience at [facility] and users should be aware that target concentrations vary widely depending on concomitant therapy, time post-transplant, and desired degree of immunosuppression. Performed By: #### T ACRO ####[facility] (DEFAULT)[address] [place] [address] TACROLIMUS LEVEL, TROUGH (DE E DRUG LEVEL)Ordered By: Roxanne Louie on 08-29-2023 Interpretation and review of laboratory results Normal [facility] Tacrolimus (Bld) [Mass/Vol] 8.7 ng/mL [facility] URINALYSIS REFLEX TO CULTURE PERFORMABLEOrdered By: Shaji Kelly on 08-29-2023 Appearance (U) Clear Clear [facility] Bacteria LM Ql (Urine sed) ABSENT ABSENT [facility] Calcium Oxalate Crystals PRESENT [facility] Color (U) Yellow Yellow [facility] Epithelial cells.squamous LM Ql (Urine sed) 0-2/hpf 0-2/hpf, 3-5/hpf = 1+ [facility] Glucose Test strip (U) [Mass/Vol] Negative Negative [facility] Interpretation and review of laboratory results Abnormal [facility] Ketones (U) [Mass/Vol] Negative Negative [facility] Leukocyte esterase Test strip Ql (U) Negative Negative [facility] Nitrite Ql (U) Negative Negative [facility] pH (U) 6.0 [pH] 5.0 - 7.0 [facility] Protein (U) [Mass/Vol] Negative Negative [facility] RBC (U) [#/Vol] Trace Abnormal Negative [facility] RBC LM.HPF (Urine sed) [#/Area] 3-5 Abnormal [facility] Specific gravity (U) [Rel density] 1.015 1.001 - 1.035 [facility] Urobilinogen (U) [Mass/Vol] 1.0 E.U./dL 0.2 E.U/dL, 1.0 E.U/dL [facility] WBC LM.HPF (Urine sed) [#/Area] 0 - 5 [facility] URINALYSIS REFLEX TO CULTURE PERFORMABLEon 08-29-2023 Appearance (U) Clear Normal Clear [facility] Comment on above: Order Comment: For i ndwelling catheters, specimen collection is acceptable on catheter day 1 and 2 only. ? Performed By: #### U [id number] ####[facility] (DEFAULT)[address] [place] [address] Bacteria ABSENT Normal ABSENT [facility] Comment on above: Order Comment: For i ndwelling catheters, specimen collection is acceptable on catheter day 1 and 2 only. ? Performed By: #### U [id number] ####U [facility] (DEFAULT)[address] [place] [address] Blood Urine Trace Abnormal Negative [facility] Comment on above: Order Comment: For i ndwelling catheters, specimen collection is acceptable on catheter day 1 and 2 only. ? Performed By: #### U [id number] ####[facility] (DEFAULT)[address] [place] [address] Calcium Oxalate Crystals PRESENT Normal [facility] Comment on above: Order Comment: For i ndwelling catheters, specimen collection is acceptable on catheter day 1 and 2 only. ? Performed By: #### U [id number] ####[facility] (DEFAULT)[address] [place] [address] Color (U) Yellow Normal Yellow [facility] Comment on above: Order Comment: For i ndwelling catheters, specimen collection is acceptable on catheter day 1 and 2 only. ? Performed By: #### U [id number] ####[facility] (DEFAULT)[address] [place] [address] Glucose Ql (U) Negative Normal Negative [facility] Comment on above: Order Comment: For i ndwelling catheters, specimen collection is acceptable on catheter day 1 and 2 only. ? Performed By: #### U [id number] ####[facility] (DEFAULT)[address] [place] [address] Ketones Ql (U) Negative Normal Negative [facility] Comment on above: Order Comment: For i ndwelling catheters, specimen collection is acceptable on catheter day 1 and 2 only. ? Performed By: #### U [id number] ####[facility] (DEFAULT)[address] [place] [address] Leukocyte esterase Test strip Ql (U) Negative Normal Negative [facility] Comment on above: Order Comment: For i ndwelling catheters, specimen collection is acceptable on catheter day 1 and 2 only. ? Performed By: #### U [id number] ####[facility] (DEFAULT)[address] [place], [place] [address], [place] [address] Nitrites Urine Negative Normal Negative [facility] Comment on above: Order Comment: For i ndwelling catheters, specimen collection is acceptable on catheter day 1 and 2 only. ? Performed By: #### U [id number] ####[facility] (DEFAULT)[address] [place], [place] [address], [place] [address] pH (U) 6.0 [pH] Normal 5.0-7.[address] [facility] Comment on above: Order Comment: For i ndwelling catheters, specimen collection is acceptable on catheter day 1 and 2 only. ? Performed By: #### U [id number] ####[facility] (DEFAULT)[address] [place], [place] [address], [place] [address] Protein Urine Negative Normal Negative [facility] Comment on above: Order Comment: For i ndwelling catheters, specimen collection is acceptable on catheter day 1 and 2 only. ? Performed By: #### U [id number] ####[facility] (DEFAULT)[address] [place] [address], [place] [address] RBC Urine 3-5 Abnormal 0-[address] [facility] Comment on above: Order Comment: For i ndwelling catheters, specimen collection is acceptable on catheter day 1 and 2 only. ? Performed By: #### U [id number] ####[facility] (DEFAULT)[address] [place], [place] [address], [place] [address] Specific [place] Urine 1.015 Normal 1.001-1.[address] [facility] Comment on above: Order Comment: For i ndwelling catheters, specimen collection is acceptable on catheter day 1 and 2 only. ? Performed By: #### U [id number] ####[facility] (DEFAULT)[address] [place] [address] Squamous/Epithelial Cells 0-2/hpf Normal 0-2/hpf, 3-5/hpf = 1+ [facility] Comment on above: Order Comment: For i ndwelling catheters, specimen collection is acceptable on catheter day 1 and 2 only. ? Performed By: #### U [id number] ####[facility] (DEFAULT)[address] [place] [address], [place] [address] Urobilinogen Urine 1.0 E.U./dL Normal 0.2 E.U/d L, 1.0 E.U/dL [facility] Comment on above: Order Comment: For i ndwelling catheters, specimen collection is acceptable on catheter day 1 and 2 only. ? Performed By: #### U [id number] ####[facility] (DEFAULT)[address] [place] [address], [place] [address] WBC Urine 0 - 5 Normal 0 - [address] [facility] Comment on above: Order Comment: For i ndwelling catheters, specimen collection is acceptable on catheter day 1 and 2 only. ? Performed By: #### U [id number] ####[facility] (DEFAULT)[address] [place] [address], [place] [address] URINE CULTUREon 08-29-2023 Bacteria identified Cx Nom (U) No Growth Normal [facility] Comment on above: Order Comment: For i ndwelling catheters, specimen collection is acceptable on catheter day 1 and 2 only. Sung top vacutainer. Urine must be to the fill line to process (4mls). If minimum volume, send urine in a yellow top vacutainer tube. Performed By: #### U R ####[facility] (DEFAULT)[address] [place] [address], [place] [address] US RENAL TRANSPLANT SCANon 0 08-29-2023 US RENAL TRANSPLANT SCAN Normal [facility] US for transplanted kidney l imitedon 08-29-2023 RADIOLOGY RADIOLOGY [facility] Radiology Study observation (narrative) [facility] US for transplanted kidney l imitedOrdered By: Romana Matias on 08-29-2023 [facility] Work Phone: XR CHEST PORTABLEon 08-29-20 23 XR CHEST PORTABLE Normal [facility] BLOOD CULTUREon 08-28-2023 Bacteria identified Cx Nom (Unsp spec) NO GROWTH DAY 5 OF 5 Normal [facility] Comment on above: Order Comment: 2 [...] Performed By: #### B LDCULT ####[facility] (DEFAULT)[address] [place] [address] Bacteria identified Cx Nom (Unsp spec) NO GROWTH DAY 5 OF 5 Normal [facility] Comment on above: Order Comment: 2 [...] Performed By: #### B LDCULT ####[facility] (DEFAULT)[address] [place] [address] DARYL AURIS SCREEN BY PCRo n 08-28-2023 Daryl auris Screen by PCR Not detected Normal Not Detected [facility] Comment on above: Order Comment: This test was performed using a real-time PCR assay. This test was developed, and its performance characteristics determined by [facility]. It has not been cleared or approved by the FDA. The laboratory is regulated under CLIA as qualified to perform high-complexity testing. This test is used for clinical purposes. It should not be regarded as investigational or for research. Performed By: #### C ANDIDA AURIS SCREEN BY PCR ####[facility] (DEFAULT)[address] [place] [address] CBC AND ELECTRONIC DIFFon Basophils (Bld) [#/Vol] K/uL 0.00 - 0.09 K/uL [facility] Basophils/100 WBC (Bld) 0.6 % [facility] Differential cell count method Nom (Bld) Electronic Differential [facility] Eosinophils (Bld) [#/Vol] 0.10 10*3/uL 0.00 - 0.48 K/uL [facility] Eosinophils/100 WBC (Bld) 2.1 % [facility] Erythrocyte distribution width (RBC) [Ratio] 13.4 % 10.9 - 14.3 % [facility] Hematocrit (Bld) [Volume fraction] 37.9 % Low 39.6 - 48.8 % [facility] Hemoglobin (Bld) [Mass/Vol] 12.4 g/dL Low 13.4 - 16.8 g/dL [facility] Immature granulocytes (Bld) [#/Vol] K/uL NINF - 0.07 K/uL [facility] Immature granulocytes/100 WBC (Bld) 0.6 % [facility] Interpretation and review of laboratory results Abnormal [facility] Lymphocytes (Bld) [#/Vol] 1.76 10*3/uL 0.83 - 3.57 K/uL [facility] Lymphocytes/100 WBC (Bld) 37.1 % [facility] MCH (RBC) [Entitic mass] 27.8 pg 26.1 - 33.3 pg [facility] MCHC (RBC) [Mass/Vol] 32.7 g/dL 31.9 - 36.5 g/dL [facility] MCV (RBC) [Entitic vol] 85.0 fL 79.0 - 94.5 fL [facility] Monocytes (Bld) [#/Vol] 0.66 10*3/uL 0.24 - 0.93 K/uL [facility] Monocytes/100 WBC (Bld) 13.9 % [facility] Neutrophils (Bld) [#/Vol] 2.16 10*3/uL 1.57 - 6.19 K/uL [facility] Nucleated RBC/100 WBC (Bld) [Ratio] 0.0 % NINF [facility] Platelet mean volume (Bld) [Entitic vol] 9.3 fL 8.7 - 12.3 fL [facility] Platelets (Bld) [#/Vol] 262 10*3/uL 146 - 337 K/uL [facility] RBC (Bld) [#/Vol] 4.46 10*6/uL [facility] Segmented neutrophils/100 WBC (Bld) 45.7 % [facility] WBC (Bld) [#/Vol] 4.74 10*3/uL 3.73 - 10. 10 K/uL [facility] Abs Baso Auto < Normal 0.00-0.[address] [facility] Comment on above: Performed By: #### L [id number] ####[facility] (DEFAULT)[address] [place] [address] Basophils/100 WBC (Bld) 0.6 % Normal [facility] Comment on above: Performed By: #### L [id number] ####[facility] (DEFAULT)[address] [place] [address] DIFF STATUS Electronic Differential Normal [facility] Comment on above: Performed By: #### L [id number] ####[facility] (DEFAULT)[address] [place] [address] Eosinophils (Bld) [#/Vol] 0.10 10*3/uL Normal 0.00-0.[address] [facility] Comment on above: Performed By: #### L [id number] ####[facility] (DEFAULT)[address] [place] [address] Eosinophils/100 WBC (Bld) 2.1 % Normal [facility] Comment on above: Performed By: #### L [id number] ####[facility] (DEFAULT)[address] [place] [address] Hematocrit (Bld) [Volume fraction] 37.9 % Low 39.6-48.[address] [facility] Comment on above: Performed By: #### L [id number] ####[facility] (DEFAULT)[address] [place] [address] Hemoglobin (Bld) [Mass/Vol] 12.4 g/dL Low 13.4-16.[address] [facility] Comment on above: Performed By: #### L [id number] ####[facility] (DEFAULT)[address] [place] [address], [place] [address] Immature Grans % 0.6 % Normal [facility] Comment on above: Performed By: #### L [id number] ####[facility] (DEFAULT)[address] [place] [address] Immature Grans Absolute < Normal <=0.[address] [facility] Comment on above: Performed By: #### L [id number] ####[facility] (DEFAULT)[address] [place] [address] Lymphocytes (Bld) [#/Vol] 1.76 10*3/uL Normal 0.83-3.[address] [facility] Comment on above: Performed By: #### L [id number] ####[facility] (DEFAULT)[address] [place] [address] Lymphocytes/100 WBC (Bld) 37.1 % Normal [facility] Comment on above: Performed By: #### L [id number] ####[facility] (DEFAULT)[address] [place] [address] MCV (RBC) [Entitic vol] 85.0 fL Normal 79.0-94.[address] [facility] Comment on above: Performed By: #### L [id number] ####[facility] (DEFAULT)[address] [place] [address] Mean Cell Hgb 27.8 pg Normal 26.1-33.[address] [facility] Comment on above: Performed By: #### L [id number] ####[facility] (DEFAULT)[address] [place] [address] Mean Cell Hgb Conc 32.7 g/dL Normal 31.9-36.5 [facility] Comment on above: Performed By: #### L [id number] ####[facility] (DEFAULT)[address] [place] [address] Monocytes (Bld) [#/Vol] 0.66 10*3/uL Normal 0.24-0.[address] [facility] Comment on above: Performed By: #### L AB980 ####[facility] (DEFAULT)[address] [place] [address] Monocytes/100 WBC (Bld) 13.9 % Normal [facility] Comment on above: Performed By: #### L [id number] ####[facility] (DEFAULT)[address] [place] [address] Nucleated RBC 0.0 /100 WBC Normal <=0.2 [facility] Comment on above: Performed By: #### L [id number] ####[facility] (DEFAULT)[address] [place] [address] Platelet mean volume (Bld) [Entitic vol] 9.3 fL Normal 8.7-12.[address] [facility] Comment on above: Performed By: #### L [id number] ####[facility] (DEFAULT)[address] [place] [address] Platelets (Bld) [#/Vol] 262 10*3/uL Normal 146-[address] [facility] Comment on above: Performed By: #### L [id number] ####[facility] (DEFAULT)[address] [place] [address] RBC (Bld) [#/Vol] 4.46 10*6/uL Normal 4.38-5.[address] [facility] Comment on above: Performed By: #### L [id number] ####[facility] (DEFAULT)[address] [place] [address] RBC Distribution 13.4 % Normal 10.9-14.3 [facility] Comment on above: Performed By: #### L AB980 ####[facility] (DEFAULT)[address] [place] [address] Segs + Bands Auto 45.7 % Normal [facility] Comment on above: Performed By: #### L AB980 ####[facility] (DEFAULT)[address] [place] [address] Segs + Bands,Absolute Auto 2.16 K/uL Normal 1.57-6.[address] [facility] Comment on above: Performed By: #### L [id number] ####[facility] (DEFAULT)[address] [place] [address] WBC (Bld) [#/Vol] 4.74 10*3/uL Normal 3.73-10.[address] [facility] Comment on above: Performed By: #### L [id number] ####[facility] (DEFAULT)[address] [place] [address] CHEM 6 (LYTES, BUN CREA)on 0 08-28-2023 Anion gap [Moles/Vol] 13 mmol/L 7 - 17 mmol/L [facility] Chloride [Moles/Vol] 103 mmol/L 98 - 10 8 mmol/L [facility] CO2 [Moles/Vol] 22 mmol/L 21 - 31 mmol/L [facility] Creatinine [Mass/Vol] 1.62 mg/dL High 0.70 - 1.30 mg/dL [facility] eGFR, CKD-EPI, Male 52 Low - PINF [facility] Interpretation and review of laboratory results Abnormal [facility] Potassium [Moles/Vol] 4.3 mmol/L 3.5 - 5.0 mmol/L [facility] Sodium [Moles/Vol] 134 mmol/L Low 135 - 145 mmol/L [facility] Urea nitrogen [Mass/Vol] 22 mg/dL 7 - 25 mg/dL [facility] Urea nitrogen/Creatinine [Mass ratio] 14 mg/mg [facility] Anion gap [Moles/Vol] 13 mmol/L Normal 7-[address] [facility] Comment on above: Performed By: #### C HM6 ####[facility] (DEFAULT)[address] [place] [address] Chloride [Moles/Vol] 103 mmol/L Normal 98-[address] [facility] Comment on above: Performed By: #### C HM6 ####[facility] (DEFAULT)[address] [place] [address] CO2 [Moles/Vol] 22 mmol/L Normal 21-31 [facility] Comment on above: Performed By: #### C HM6 ####[facility] (DEFAULT)[address] [place] [address] Creatinine [Mass/Vol] 1.62 mg/dL High 0.70-1.[address] [facility] Comment on above: Performed By: #### C HM6 ####[facility] (DEFAULT)[address] [place] [address] GFR/1.73 sq M.predicted among non-blacks MDRD (S/P/Bld) [Vol rate/Area] 51 mL/min/{1.73_m2} Low >=[address] [facility] Comment on above: Result Comment: Repo rted eGFR is based on the CKD-EPI 2020 equation using creatinine, age, and sex. Performed By: #### C HM6 ####[facility] (DEFAULT)[address] [place] [address] Potassium [Moles/Vol] 4.3 mmol/L Normal 3.5-5.[address] [facility] Comment on above: Performed By: #### C HM6 ####[facility] (DEFAULT)[address] [place] [address] Sodium [Moles/Vol] 134 mmol/L Low 135-145 [facility] Comment on above: Performed By: #### C HM6 ####[facility] (DEFAULT)[address] [place] [address] Urea nitrogen [Mass/Vol] 22 mg/dL Normal 7-[address] [facility] Comment on above: Performed By: #### C HM6 ####[facility] (DEFAULT)[address] [place] [address] Urea nitrogen/Creatinine [Mass ratio] 14 mg/mg Normal [facility] Comment on above: Performed By: #### C HM6 ####[facility] (DEFAULT)[address] [place] [address], [place] [address] IMMUNOCOMPROMISED RESPIRATOR Y PANELon 08-28-2023 Adenovirus - Pcr Not detected Normal Not Detected [facility] Comment [...] assay. Performed By: #### I CRESP ####[facility] (DEFAULT)[address] [place] [address] Bordetella Parapertussis Not detected Normal Not Detected [facility] Comment [...] Performed By: #### I CRESP ####[facility] (DEFAULT)[address] [place] [address], [place] [address] Bordetella Pertussis Not detected Normal Not Detected [facility] Comment [...] Performed By: #### I CRESP ####[facility] (DEFAULT)[address] [place] [address] Chlamydia Pneumoniae Not detected Normal Not Detected [facility] Comment [...] assay. Performed By: #### I CRESP ####[facility] (DEFAULT)[address] [place] [address], [place] [address] Coronavirus 229E Not detected Normal Not Detected [facility] Comment [...] Performed By: #### I CRESP ####[facility] (DEFAULT)[address] [place] [address], [place] [address] Coronavirus Hku1 Not detected Normal Not Detected [facility] Comment [...] Performed By: #### I CRESP ####[facility] (DEFAULT)[address] [place] [address], [place] [address] Coronavirus Nl63 Not detected Normal Not Detected [facility] Comment [...] Performed By: #### I CRESP ####[facility] (DEFAULT)[address] [place] [address], [place] [address] Coronavirus Oc43 Not detected Normal Not Detected [facility] Comment [...] Performed By: #### I CRESP ####[facility] (DEFAULT)[address] [place] [address], [place] [address] Influenza A - Pcr Not detected Normal Not Detected [facility] Comment on above: Order [...] Performed By: #### I CRESP ####[facility] (DEFAULT)[address] [place] [address] Influenza B - Pcr Not detected Normal Not Detected [facility] Comment on above: Order [...] Performed By: #### I CRESP ####[facility] (DEFAULT)[address] [place] [address], [place] [address] Metapneumovirus - Pcr Not detected Normal Not Detected [facility] Comment [...] assay. Performed By: #### I CRESP ####[facility] (DEFAULT)[address] [place] [address] Mycoplasma Pneumoniae Not detected Normal Not Detected [facility] Comment [...] assay. Performed By: #### I CRESP ####[facility] (DEFAULT)[address] [place] [address] Parainfluenza 1 - Pcr Not detected Normal Not Detected [facility] Comment [...] assay. Performed By: #### I CRESP ####[facility] (DEFAULT)[address] [place] [address] Parainfluenza 2 - Pcr Not detected Normal Not Detected [facility] Comment [...] Performed By: #### I CRESP ####[facility] (DEFAULT)[address] [place] [address] Parainfluenza 3 - Pcr Not detected Normal Not Detected [facility] Comment [...] assay. Performed By: #### I CRESP ####[facility] (DEFAULT)[address] [place] [address], [place] [address] Parainfluenza 4 - Pcr Not detected Normal Not Detected [facility] Comment [...] assay. Performed By: #### I CRESP ####[facility] (DEFAULT)[address] [place] [address] Rhinovirus/Enterovir us - PCR Not detected Normal Not Detected [facility] Comment [...] Performed By: #### I CRESP ####[facility] (DEFAULT)[address] [place] [address] Rsv - Pcr Not detected Normal Not Detected [facility] Comment [...] Performed By: #### I CRESP ####[facility] (DEFAULT)[address] [place] [address] SARS-CoV-2 (COVID-19) RNA ESTELITA+probe Ql (Unsp spec) Not detected Normal NOT DETECTED [facility] Comment [...] Performed By: #### I CRESP ####[facility] (DEFAULT)[address] [place] [address] Portable XR Chest Viewson Radiology Study observation (narrative) [facility] Respiratory virus DNA+RNA NA A+probe Nom (Unsp spec)Ordered By: Dayami Harris on 08-28-2023 Adenovirus DNA ESTELITA+probe Nom (Unsp spec) Not detected Not Detected [facility] B. parapertussis DNA ESTELITA+probe Ql (Unsp spec) Not detected Not Detected [facility] B. pertussis DNA ESTELITA+probe Ql (Unsp spec) Not detected Not Detected [facility] C. pneumoniae DNA ESTELITA+probe Ql (Unsp spec) Not detected Not Detected [facility] FLUAV RNA ESTELITA+probe Ql (Unsp spec) Not detected Not Detected [facility] FLUBV RNA ESTELITA+probe Ql (Unsp spec) Not detected Not Detected [facility] HCoV 229E RNA ESTELITA+non-probe Ql (Nph) Not detected Not Detected [facility] HCoV HKU1 RNA ESTELITA+non-probe Ql (Nph) Not detected Not Detected [facility] HCoV NL63 RNA ESTELITA+non-probe Ql (Nph) Not detected Not Detected [facility] HCoV OC43 RNA ESTELITA+non-probe Ql (Nph) Not detected Not Detected [facility] hMPV A RNA ESTELITA+probe Ql (Unsp spec) Not detected Not Detected [facility] Interpretation and review of laboratory results Normal [facility] M. pneumoniae DNA ESTELITA+probe Ql (Unsp spec) Not detected Not Detected [facility] Parainfluenza virus 1 RNA ESTELITA+probe Ql (Unsp spec) Not detected Not Detected [facility] Parainfluenza virus 2 RNA ESTELITA+probe Ql (Unsp spec) Not detected Not Detected [facility] Parainfluenza virus 3 RNA ESTELITA+probe Ql (Unsp spec) Not detected Not Detected [facility] Parainfluenza virus 4 RNA ESTELITA+probe Ql (Unsp spec) Not detected Not Detected [facility] Rhinovirus+Enterovir us RNA ESTELITA+probe Ql (Unsp spec) Not detected Not Detected [facility] RSV RNA ESTELITA+probe Ql (Unsp spec) Not detected Not Detected [facility] SARS-CoV-2 (COVID-19) RNA ESTELITA+probe Ql (Unsp spec) Not detected NOT DETECTED [facility] ALBUMINon 04-28-2023 Albumin [Mass/Vol] 4.0 g/dL Normal 3.4-5.[address] [facility] Comment on above: Performed By: #### C MP #### [facility] [address] [place] [address] Dr. Dwight Waters ALKALINE PHOSPHAon ALP [Catalytic activity/Vol] 106 U/L Normal 46-116 [facility] Comment on above: Performed By: #### F [id number] #### [facility] [address] [place] [address] Dr. Dwight Waters BILIRUBIN CONJUGATED (DIRECT )on 04-28-2023 BILI, CONJUGATED 0.3 mg/dL Critically high 0.0-0.[address] [facility] Comment on above: Performed By: #### C MP #### [facility] [address] [place] [address] Dr. Dwight Waters BILIRUBIN TOTALon 04-28-2023 Bilirubin [Mass/Vol] 1.4 mg/dL Critically high 0.2-1.0 [facility] Comment on above: Performed By: #### C MP #### [facility] [address] [place] [address] Dr. Dwight Waters BUNon 04-28-2023 Urea nitrogen [Mass/Vol] 12.0 mg/dL Normal 7.0-18.0 [facility] Comment on above: Performed By: #### U RTPCR #### [facility] [address] [place] [place] [address] Dr. Dwight Waters CALCIUMon 04-28-2023 Calcium [Mass/Vol] 9.3 mg/dL Normal 8.5-10.1 [facility] Comment on above: Performed By: #### U RTPCR #### [facility] [address] [place] [address] Dr. Dwight Waters CBC AUTO DIFFon 04-28-2023 BASO # 0.1 103/ul Normal 0.0-0.[address] [facility] Comment on above: Performed By: #### C BC #### [facility] [address] [place] [place] [address] Dr. Dwight Waters Basophils/100 WBC (Bld) 0.9 % Normal 0.2-2.[address] [facility] Comment on above: Performed By: #### C BC #### [facility] [address] [place] [address] Dr. Dwight Waters EO # 0.2 103/ul Normal 0.0-0.7 [facility] Comment on above: Performed By: #### C BC #### [facility] [address] [place] [place] [address] Dr. Dwight Waters Eosinophils/100 WBC (Bld) 3.8 % Normal 0.9-7.[address] [facility] Comment on above: Performed By: #### C BC #### [facility] [address] [place] [place] [address] Dr. Dwight Waters Erythrocyte distribution width (RBC) [Ratio] 12.5 % Normal 11.0-15.[address] [facility] Comment on above: Performed By: #### C BC #### [facility] [address] [place] [place] [address] Dr. Dwight Waters Hematocrit (Bld) [Volume fraction] 49.8 % Normal 42.0-54.[address] [facility] Comment on above: Performed By: #### C BC #### [facility] [address] [place] [place] [address] Dr. Dwight Waters Hemoglobin (Bld) [Mass/Vol] 16.4 g/dL Normal 14.0-18.[address] [facility] Comment on above: Performed By: #### C BC #### [facility] [address] [place] [place] [address] Dr. Dwight Waters IG # 0.01 10e3/ul Normal 0.00-0.[address] [facility] Comment on above: Performed By: #### C BC #### [facility] [address] [place] [place] [address] Dr. Dwight Waters IG % 0.2 % Normal 0.0-0.5 [facility] Comment on above: Performed By: #### C BC #### [facility] [address] [place] [place] [address] Dr. Dwight Waters LYMPH # 2.1 103/ul Normal 1.2-3.8 [facility] Comment on above: Performed By: #### C BC #### [facility] [address] [place] [place] [address] Dr. Dwight Waters Lymphocytes/100 WBC (Bld) 39.1 % Normal 20.5-60.[address] [facility] Comment on above: Performed By: #### C BC #### [facility] [address] [place] [place] [address] Dr. Dwight Waters MANUAL DIFF REQ NO Normal [facility] Comment on above: Performed By: #### C BC #### [facility] [address] [place] [place] [address] Dr. Dwight Waters MCH (RBC) [Entitic mass] 28.6 pg Normal 25.9-34.[address] [facility] Comment on above: Performed By: #### C BC #### [facility] [address] [place] [address] Dr. Dwight Waters MCHC (RBC) [Mass/Vol] 32.9 g/dL Normal 29.9-35.2 [facility] Comment on above: Performed By: #### C BC #### [facility] [address] [place] [address] Dr. Dwight Waters MCV (RBC) [Entitic vol] 86.9 fL Normal 80.0-94.0 [facility] Comment on above: Performed By: #### C BC #### [facility] [address] [place] [address] Dr. Dwight Waters MONO # 0.6 103/ul Normal 0.3-0.8 [facility] Comment on above: Performed By: #### C BC #### [facility] [address] [place] [place] [address] Dr. Dwight Waters Monocytes/100 WBC (Bld) 10.6 % Normal 1.7-12.0 [facility] Comment on above: Performed By: #### C BC #### [facility] [address] [place] [address] Dr. Dwight Waters NEUT # 2.5 103/ul Normal 1.4-6.5 [facility] Comment on above: Performed By: #### C BC #### [facility] [address] [place] [place] [address] Dr. Dwight Waters Neutrophils/100 WBC (Bld) 45.4 % Normal 43.0-75.0 [facility] Comment on above: Performed By: #### C BC #### [facility] [address] [place] [address] Dr. Dwight Waters Platelet mean volume (Bld) [Entitic vol] 9.3 fL Critically low 9.5-13.5 [facility] Comment on above: Performed By: #### C BC #### [facility] [address] [place] [place] [address] Dr. Dwight Waters PLT 248 103/ul Normal 150-450 [facility] Comment on above: Performed By: #### C BC #### [facility] [address] [place] [place] [address] Dr. Dwight Waters RBC 5.73 106/ul Normal 4.70-6.10 [facility] Comment on above: Performed By: #### C BC #### [facility] [address] [place] [place] [address] Dr. Dwight Waters WBC 5.5 103/ul Normal 4.0-11.0 [facility] Comment on above: Performed By: #### C BC #### [facility] [address] [place] [place] [address] Dr. Dwight Waters CHLORIDEon 04-28-2023 Chloride [Moles/Vol] 107 mmol/L Normal 98-107 [facility] Comment on above: Performed By: #### U RTPCR #### [facility] [address] [place] [address] Dr. Dwight Waters CO2on 04-28-2023 CO2 [Moles/Vol] 28.9 mmol/L Normal 21.0-32.0 [facility] Comment on above: Performed By: #### U RTPCR #### [facility] [address] [place], [place] [id number] Dr. Dwight Waters CREATININEon 04-28-2023 Creatinine [Mass/Vol] 1.17 mg/dL Normal 0.70-1.[address] [facility] Comment on above: Performed By: #### U RTPCR #### [facility] [address] [place] [place] [address] Dr. Dwight Waters EGFR-AF AUSTRALIAN >60 Normal >=[address] [facility] Comment on above: Performed By: #### U RTPCR #### [facility] [address] [place] [place] [address] Dr. Dwight Waters EGFR-NON AF AUSTRALIAN >60 Normal >=[address] [facility] Comment on above: Performed By: #### U RTPCR #### [facility] [address] [place] [address] Dr. Dwight Waters GGTon 04-28-2023 Gamma glutamyl transferase [Catalytic activity/Vol] 27 U/L Normal 15-[address] [facility] Comment on above: Performed By: #### U RTPCR #### [facility] [address] [place] [place] [address] Dr. Dwight Waters GLUCOSE BLOODon 04-28-2023 Glucose [Mass/Vol] 110 mg/dL Critically high 74-106 [facility] Comment on above: Performed By: #### U RTPCR #### [facility] [address] [place] [place] [address] Dr. Dwight Waters MAGNESIUMon 04-28-2023 Magnesium [Mass/Vol] 1.7 mg/dL Critically low 1.8-2.[address] [facility] Comment on above: Performed By: #### U RTPCR #### [facility] [address] [place] [address] Dr. Dwight Waters NAon 04-28-2023 Sodium [Moles/Vol] 144 mmol/L Normal 136-[address] [facility] Comment on above: Performed By: #### U RTPCR #### [facility] [address] [place] [place] [address] Dr. Dwight Waters PHOSPHORUSon 04-28-2023 Phosphate [Mass/Vol] 3.2 mg/dL Normal 2.6-4.[address] [facility] Comment on above: Performed By: #### U RTPCR #### [facility] [address] [place] [place] [address] Dr. Dwight Waters POTASSIUMon 04-28-2023 Potassium [Moles/Vol] 4.0 mmol/L Normal 3.5-5.1 [facility] Comment on above: Performed By: #### U RTPCR #### [facility] [address] [place] [place] [address] Dr. Dwight Waters SGOTon 04-28-2023 AST [Catalytic activity/Vol] 25 U/L Normal 15-37 [facility] Comment on above: Performed By: #### C MP #### [facility] [address] [place] [place] [address] Dr. Dwight Waters SGPTon 04-28-2023 ALT [Catalytic activity/Vol] 40 U/L Normal 16-63 [facility] Comment on above: Performed By: #### C MP #### [facility] [address] [place] [address] Dr. Dwight Waters URINE T PROTEIN CREAT RATIOo n 04-28-2023 Protein (U) [Mass/Vol] 10.1 mg/dL Normal <=12.0 [facility] Comment on above: Performed By: #### U RTPCR #### [facility] [address] [place] [place] [address] Dr. Dwight Waters UR PROT CREAT RAT 0.14 Normal [facility] Comment on above: Performed By: #### U RTPCR #### [facility] [address] [place] [place] [address] Dr. Dwight Waters URINE CREAT 74.40 mg/dL Normal 20.00-300.00 [facility] Comment on above: Performed By: #### U RTPCR #### [facility] [address] [place] [place] [address] Dr. Dwight Waters BK VIRUS PCR QUANTon 023 BKV DNA QUANT PCR PLASMA Negative Normal Negative [facility] Comment on above: Result Comment: No B K DNA detected. . The linear range of the assay is 22 - 100,000,000 IU/mL. Performed By: #### B KVIRUS #### [facility] [address] [place] [place] [address] Dr. Dwight Waters Log10 BKV DNA Plasma Normal [facility] Comment on above: Performed By: #### B KVIRUS #### [facility] [address] [place] [place] [address] Dr. Dwight Waters FK506 (TACROLIMUS) WHOLE BLO ODon 03-04-2023 Tacrolimus (FK506), Blood 5.9 ng/mL Normal 2.0-20.[address] [facility] Comment on above: Result Comment: Trou gh (immediately following transplant) 15.0 . Trough (steady state, 2 weeks or more after transplant): 3.0 - 8.0 . Performed by LC-MS/MS technology. Performed By: #### C MP #### [facility] [address] [place] [address] Dr. Dwight Waters ALBUMINon 03-02-2023 Albumin [Mass/Vol] 3.9 g/dL Normal 3.4-5.[address] [facility] Comment on above: Performed By: #### U RTPCR #### [facility] [address] [place] [place] [address] Dr. Dwight Waters ALKALINE PHOSPHAon ALP [Catalytic activity/Vol] 105 U/L Normal 46-[address] [facility] Comment on above: Performed By: #### U RTPCR #### [facility] [address] [place] [address] Dr. Dwight Waters BILIRUBIN CONJUGATED (DIRECT )on 03-02-2023 BILI, CONJUGATED 0.2 mg/dL Normal 0.0-0.[address] [facility] Comment on above: Performed By: #### U RTPCR #### [facility] [address] [place] [address] Dr. Dwight Waters BILIRUBIN TOTALon 03-02-2023 Bilirubin [Mass/Vol] 0.9 mg/dL Normal 0.2-1.[address] [facility] Comment on above: Performed By: #### U RTPCR #### [facility] [address] [place] [address] Dr. Dwight Waters CBC AUTO DIFFon 03-02-2023 BASO # 0.1 103/ul Normal 0.0-0.[address] [facility] Comment on above: Performed By: #### C BC #### [facility] [address] [place] [place] [address] Dr. Dwight Waters Basophils/100 WBC (Bld) 0.9 % Normal 0.2-2.[address] [facility] Comment on above: Performed By: #### C BC #### [facility] [address] [place] [address] Dr. Dwight Waters EO # 0.2 103/ul Normal 0.0-0.[address] [facility] Comment on above: Performed By: #### C BC #### [facility] [address] [place] [place] [address] Dr. Dwight Waters Eosinophils/100 WBC (Bld) 3.5 % Normal 0.9-7.[address] [facility] Comment on above: Performed By: #### C BC #### [facility] [address] [place] [place] [address] Dr. Dwight Waters Erythrocyte distribution width (RBC) [Ratio] 12.7 % Normal 11.0-15.[address] [facility] Comment on above: Performed By: #### C BC #### [facility] [address] [place] [place] [address] Dr. Dwight Waters Hematocrit (Bld) [Volume fraction] 48.2 % Normal 42.0-54.[address] [facility] Comment on above: Performed By: #### C BC #### [facility] [address] [place] [place] [address] Dr. Dwight Waters Hemoglobin (Bld) [Mass/Vol] 15.9 g/dL Normal 14.0-18.0 [facility] Comment on above: Performed By: #### C BC #### [facility] [address] [place] [place] [address] Dr. Dwight Waters IG # 0.01 10e3/ul Normal 0.00-0.[address] [facility] Comment on above: Performed By: #### C BC #### [facility] [address] [place] [place] [address] Dr. Dwight Waters IG % 0.2 % Normal 0.0-0.[address] [facility] Comment on above: Performed By: #### C BC #### [facility] [address] [place] [place] [address] Dr. Dwight Waters LYMPH # 2.1 103/ul Normal 1.2-3.[address] [facility] Comment on above: Performed By: #### C BC #### [facility] [address] [place] [place] [address] Dr. Dwight Waters Lymphocytes/100 WBC (Bld) 37.4 % Normal 20.5-60.[address] [facility] Comment on above: Performed By: #### C BC #### [facility] [address] [place] [place] [address] Dr. Dwight Waters MANUAL DIFF REQ NO Normal [facility] Comment on above: Performed By: #### C BC #### [facility] [address] [place] [place] [address] Dr. Dwight Waters MCH (RBC) [Entitic mass] 28.3 pg Normal 25.9-34.[address] [facility] Comment on above: Performed By: #### C BC #### [facility] [address] [place] [place] [address] Dr. Dwight Waters MCHC (RBC) [Mass/Vol] 33.0 g/dL Normal 29.9-35.[address] [facility] Comment on above: Performed By: #### C BC #### [facility] [address] [place] [place] [address] Dr. Dwight Waters MCV (RBC) [Entitic vol] 85.8 fL Normal 80.0-94.[address] [facility] Comment on above: Performed By: #### C BC #### [facility] [address] [place] [place] [address] Dr. Dwight Waters MONO # 0.6 103/ul Normal 0.3-0.[address] [facility] Comment on above: Performed By: #### C BC #### [facility] [address] [place] [place] [address] Dr. Dwight Waters Monocytes/100 WBC (Bld) 10.2 % Normal 1.7-12.[address] [facility] Comment on above: Performed By: #### C BC #### [facility] [address] [address] [address] Dwight Waters NEUT # 2.7 103/ul Normal 1.4-6.[address] [facility] Comment on above: Performed By: #### C BC #### [facility] [address] [address] [address] Dwight Waters Neutrophils/100 WBC (Bld) 47.8 % Normal 43.0-75.[address] [facility] Comment on above: Performed By: #### C BC #### [facility] [address] [place] [place] [address] Dr. Dwight Waters Platelet mean volume (Bld) [Entitic vol] 9.3 fL Critically low 9.5-13.[address] [facility] Comment on above: Performed By: #### C BC #### [facility] [address] [place] [place] [address] Dr. Dwight Waters PLT 241 103/ul Normal 150-450 [facility] Comment on above: Performed By: #### C BC #### [facility] [address] [place] [place] [address] Dr. Dwight Waters RBC 5.62 106/ul Normal 4.70-6.10 [facility] Comment on above: Performed By: #### C BC #### [facility] [address] [place] [place] [address] Dr. Dwight Waters WBC 5.7 103/ul Normal 4.0-11.0 [facility] Comment on above: Performed By: #### C BC #### [facility] [address] [place] [place] [address] Dr. Dwight Waters GGTon 03-02-2023 Gamma glutamyl transferase [Catalytic activity/Vol] 25 U/L Normal 15-85 [facility] Comment on above: Performed By: #### U RTPCR #### [facility] [address] [place] [address] Dr. Dwight Waters MAGNESIUMon 03-02-2023 Magnesium [Mass/Vol] 1.6 mg/dL Critically low 1.8-2.4 [facility] Comment on above: Performed By: #### U RTPCR #### [facility] [address] [place] [address] Dr. Dwight Waters PHOSPHORUSon 03-02-2023 Phosphate [Mass/Vol] 3.6 mg/dL Normal 2.6-4.7 [facility] Comment on above: Performed By: #### U RTPCR #### [facility] [address] [place] [address] Dr. Dwight Waters PROF CHEM 8 (BAS METB)on Anion gap [Moles/Vol] 9.4 mmol/L Normal [facility] Comment on above: Performed By: #### U RTPCR #### [facility] [address] [place] [address] Dr. Dwight Waters Calcium [Mass/Vol] 9.3 mg/dL Normal 8.5-10.[address] [facility] Comment on above: Performed By: #### U RTPCR #### [facility] [address] [place] [place] [address] Dr. Dwight Waters Chloride [Moles/Vol] 108 mmol/L Critically high 98-107 [facility] Comment on above: Performed By: #### U RTPCR #### [facility] [address] [place] [place] [address] Dr. Dwight Waters CO2 [Moles/Vol] 27.2 mmol/L Normal 21.0-32.0 [facility] Comment on above: Performed By: #### U RTPCR #### [facility] [address] [place] [place] [address] Dr. Dwight Waters Creatinine [Mass/Vol] 1.12 mg/dL Normal 0.70-1.30 [facility] Comment on above: Performed By: #### U RTPCR #### [facility] [address] [place] [address] Dr. Dwight Waters EGFR-AF AUSTRALIAN >60 Normal >=60 [facility] Comment on above: Performed By: #### U RTPCR #### [facility] [address] [place] [address] Dr. Dwight Waters EGFR-NON AF AUSTRALIAN >60 Normal >=[address] [facility] Comment on above: Performed By: #### U RTPCR #### [facility] [address] [place] [place] [address] Dr. Dwight Waters Glucose [Mass/Vol] 113 mg/dL Critically high 74-106 [facility] Comment on above: Performed By: #### U RTPCR #### [facility] [address] [place] [place] [address] Dr. Dwight Waters Potassium [Moles/Vol] 3.6 mmol/L Normal 3.5-5.[address] [facility] Comment on above: Performed By: #### U RTPCR #### [facility] [address] [place] [place] [address] Dr. Dwight Waters Sodium [Moles/Vol] 141 mmol/L Normal 136-[address] [facility] Comment on above: Performed By: #### U RTPCR #### [facility] [address] [place] [address] Dr. Dwight Waters Urea nitrogen [Mass/Vol] 14.0 mg/dL Normal 7.0-18.[address] [facility] Comment on above: Performed By: #### U RTPCR #### [facility] [address] [place] [address] Dr. Dwight Waters Urea nitrogen/Creatinine [Mass ratio] 12.5 mg/mg Normal [facility] Comment on above: Performed By: #### U RTPCR #### [facility] [address] [place] [address] Dr. Dwight Albert 03-02-2023 AST [Catalytic activity/Vol] 20 U/L Normal 15-[address] [facility] Comment on above: Performed By: #### U RTPCR #### [facility] [address] [place] [address] Dr. Dwight Osei 03-02-2023 ALT [Catalytic activity/Vol] 30 U/L Normal 16-[address] [facility] Comment on above: Performed By: #### U RTPCR #### [facility] [address] [place] [address] Dr. Dwight Waters URINE T PROTEIN CREAT RATIOo n 03-02-2023 Protein (U) [Mass/Vol] 10.3 mg/dL Normal <=12.[address] [facility] Comment on above: Performed By: #### U RTPCR #### [facility] [address] [place] [address] Dr. Dwight Waters UR PROT CREAT RAT 0.[address] [facility] Comment on above: Performed By: #### U RTPCR #### [facility] [address] [place] [place] [address] Dr. Dwight Waters URINE CREAT 68.96 mg/dL Normal 20.00-300.[address] [facility] Comment on above: Performed By: #### U RTPCR #### [facility] [address] [place] [address] Dr. Dwight Waters BK VIRUS PCR QUANTon 023 BKV DNA QUANT PCR PLASMA Negative Normal Negative [facility] Comment on above: Result Comment: No B K DNA detected. . The linear range of the assay is 22 - 100,000,000 IU/mL. Performed By: #### C MP #### [facility] [address] [place] [address] Dr. Dwight Waters Log10 BKV DNA Plasma Normal [facility] Comment on above: Performed By: #### C MP #### [facility] [address] [place] [address] Dr. Dwight Waters FK506 (TACROLIMUS) WHOLE BLO ODon 12-31-2022 Tacrolimus (FK506), Blood 5.6 ng/mL Normal 2.0-20.[address] [facility] Comment on above: Result Comment: Trou gh (immediately following transplant) 15.0 . Trough (steady state, 2 weeks or more after transplant): 3.0 - 8.0 . Performed by LC-MS/MS technology. Performed By: #### C MP #### [facility] [address] [place] [address] Dr. Dwight Waters ALKALINE PHOSPHAon 3 ALP [Catalytic activity/Vol] 96 U/L Normal 46-[address] [facility] Comment on above: Performed By: #### C BC #### [facility] [address] [place] [address] Dr. Dwight Waters BILIRUBIN CONJUGATED (DIRECT )on 12-29-2022 BILI, CONJUGATED 0.3 mg/dL Critically high 0.0-0.[address] [facility] Comment on above: Performed By: #### C BC #### [facility] [address] [place] [address] Dr. Dwight Waters BILIRUBIN TOTALon 12-29-2022 Bilirubin [Mass/Vol] 1.1 mg/dL Critically high 0.2-1.[address] [facility] Comment on above: Performed By: #### C BC #### [facility] [address] [place] [address] Dr. Dwight Waters CBC AUTO DIFFon 12-29-2022 BASO # 0.1 103/ul Normal 0.0-0.[address] [facility] Comment on above: Performed By: #### C MP #### [facility] [address] [place] [address] Dr. Dwight Waters Basophils/100 WBC (Bld) 0.8 % Normal 0.2-2.[address] [facility] Comment on above: Performed By: #### C MP #### [facility] [address] [place] [address] Dr. Dwight Waters EO # 0.2 103/ul Normal 0.0-0.[address] [facility] Comment on above: Performed By: #### C MP #### [facility] [address] [place] [address] Dr. Dwight Waters Eosinophils/100 WBC (Bld) 3.0 % Normal 0.9-7.0 [facility] Comment on above: Performed By: #### C MP #### [facility] [address] [place] [address] Dr. Dwight Waters Erythrocyte distribution width (RBC) [Ratio] 12.9 % Normal 11.0-15.[address] [facility] Comment on above: Performed By: #### C MP #### [facility] [address] [place] [address] Dr. Dwight Waters Hematocrit (Bld) [Volume fraction] 46.9 % Normal 42.0-54.[address] [facility] Comment on above: Performed By: #### C MP #### [facility] [address] [place] [address] Dr. Dwight Waters Hemoglobin (Bld) [Mass/Vol] 16.1 g/dL Normal 14.0-18.[address] [facility] Comment on above: Performed By: #### C MP #### [facility] [address] [place] [address] Dr. Dwight Waters IG # 0.01 10e3/ul Normal 0.00-0.[address] [facility] Comment on above: Performed By: #### C MP #### [facility] [address] [place] [address] Dr. Dwight Waters IG % 0.2 % Normal 0.0-0.[address] [facility] Comment on above: Performed By: #### C MP #### [facility] [address] [place] [address] Dr. Dwight Waters LYMPH # 1.8 103/ul Normal 1.2-3.[address] [facility] Comment on above: Performed By: #### C MP #### [facility] [address] [place] [address] Dr. Dwight Waters Lymphocytes/100 WBC (Bld) 27.9 % Normal 20.5-60.[address] [facility] Comment on above: Performed By: #### C MP #### [facility] [address] [place] [address] Dr. Dwight Waters MANUAL DIFF REQ NO Normal [facility] Comment on above: Performed By: #### C MP #### [facility] [address] [place] [address] Dr. Dwight Waters MCH (RBC) [Entitic mass] 28.5 pg Normal 25.9-34.[address] [facility] Comment on above: Performed By: #### C MP #### [facility] [address] [place] [address] Dr. Dwight Waters MCHC (RBC) [Mass/Vol] 34.3 g/dL Normal 29.9-35.[address] [facility] Comment on above: Performed By: #### C MP #### [facility] [address] [address] [address] Dwight Waters MCV (RBC) [Entitic vol] 83.2 fL Normal 80.0-94.[address] [facility] Comment on above: Performed By: #### C MP #### [facility] [address] [address] [address] Dwight Waters MONO # 0.5 103/ul Normal 0.3-0.8 [facility] Comment on above: Performed By: #### C MP #### [facility] [address] [address] [address] Dwight Waters Monocytes/100 WBC (Bld) 8.1 % Normal 1.7-12.[address] [facility] Comment on above: Performed By: #### C MP #### [facility] [address] [address] [address] Dwight Waters NEUT # 3.8 103/ul Normal 1.4-6.[address] [facility] Comment on above: Performed By: #### C MP #### [facility] [address] [place] [place] [address] Dr. Dwight Waters Neutrophils/100 WBC (Bld) 60.0 % Normal 43.0-75.[address] [facility] Comment on above: Performed By: #### C MP #### [facility] [address] [address] [address] Dwight Waters Platelet mean volume (Bld) [Entitic vol] 9.2 fL Critically low 9.5-13.[address] [facility] Comment on above: Performed By: #### C MP #### [facility] [address] [address] [address] Dwight Waters PLT 225 103/ul Normal 150-450 [facility] Comment on above: Performed By: #### C MP #### [facility] [address] [address] [address] Dwight Waters RBC 5.64 106/ul Normal 4.70-6.10 [facility] Comment on above: Performed By: #### C MP #### [facility] [address] [address] [address] Dwight Waters WBC 6.3 103/ul Normal 4.0-11.[address] [facility] Comment on above: Performed By: #### C MP #### [facility] [address] [address] [address] Dwight Waters GGTon 12-29-2022 Gamma glutamyl transferase [Catalytic activity/Vol] 24 U/L Normal 15-85 [facility] Comment on above: Performed By: #### C MP #### [facility] [address] [address] [address] Dwight Waters LIPID PROFILEon 12-29-2022 CHOL-HDL RATIO NORM SEE BELOW Normal [facility] Comment on above: Result Comment: 3.3 - 4.4 LOW RISK 4.4 - 7.1 AVERAGE RISK 7.1 - 11.0 MODERATE RISK >11.0 HIGH RISK Performed By: #### U RTPCR #### [facility] [address] [place] [address] Dr. Dwight Waters Cholesterol [Mass/Vol] 87 mg/dL Normal <=200 [facility] Comment on above: Performed By: #### U RTPCR #### [facility] [address] [place] [address] Dr. Dwight Waters Cholesterol in HDL [Mass/Vol] 44 mg/dL Normal 40-[address] [facility] Comment on above: Performed By: #### U RTPCR #### [facility] [address] [place] [address] Dr. Dwight Waters Cholesterol in LDL [Mass/Vol] 33.0 mg/dL Normal [facility] Comment on above: Performed By: #### U RTPCR #### [facility] [address] [address] [address] Dwight Waters Cholesterol.total/Ch olesterol in HDL [Mass ratio] 2.0 {ratio} Normal [facility] Comment on above: Performed By: #### U RTPCR #### [facility] [address] [place] [address] Dr. Dwight Waters HDL NORMAL > or = 60 mg/dl - LO W CARDIOVASCULAR RISK <40 mg/dl - HIGH CARDIOVASCULAR RISK Normal [facility] Comment on above: Performed By: #### U RTPCR #### [facility] [address] [address] [address] Dwight Waters LDL CALC NORMAL SEE BELOW Normal [facility] Comment on above: Result Comment: <100 mg/dl OPTIMAL 100 - 129 mg/dl NEAR OR ABOVE OPTIMAL 130 - 159 mg/dl BORDERLINE HIGH 160 - 189 mg/dl HIGH >190 mg/dl VERY HIGH Performed By: #### U RTPCR #### [facility] [address] [address] [address] Dwight Waters Triglyceride [Mass/Vol] 50 mg/dL Normal <=150 [facility] Comment on above: Performed By: #### U RTPCR #### [facility] [address] [place] [place] [address] Dr. Dwight Waters VLDL CALC 10.0 mg/dL Normal [facility] Comment on above: Performed By: #### U RTPCR #### [facility] [address] [place] [address] Dr. Dwight Waters MAGNESIUMon 12-29-2022 Magnesium [Mass/Vol] 1.6 mg/dL Critically low 1.8-2.4 [facility] Comment on above: Performed By: #### C BC #### [facility] [address] [place] [address] Dr. Dwight Waters RENAL FUNCTION PANELon 12-29 Albumin [Mass/Vol] 3.9 g/dL Normal 3.4-5.[address] [facility] Comment on above: Performed By: #### C BC #### [facility] [address] [place] [address] Dr. Dwight Waters Calcium [Mass/Vol] 9.2 mg/dL Normal 8.5-10.1 [facility] Comment on above: Performed By: #### C BC #### [facility] [address] [place] [address] Dr. Dwight Waters Chloride [Moles/Vol] 109 mmol/L Critically high 98-107 [facility] Comment on above: Performed By: #### C BC #### [facility] [address] [address] [address] Dwight Waters CO2 [Moles/Vol] 27.0 mmol/L Normal 21.0-32.[address] [facility] Comment on above: Performed By: #### C BC #### [facility] [address] [address] [address] Dwight Waters Creatinine [Mass/Vol] 1.02 mg/dL Normal 0.70-1.[address] [facility] Comment on above: Performed By: #### C BC #### [facility] [address] [address] [address] Dwight Waters EGFR-AF AUSTRALIAN >60 Normal >=[address] [facility] Comment on above: Performed By: #### C BC #### [facility] [address] [place] [address] Dr. Dwight Waters EGFR-NON AF AUSTRALIAN >60 Normal >=[address] [facility] Comment on above: Performed By: #### C BC #### [facility] [address] [place] [place] [address] Dr. Dwight Waters Glucose [Mass/Vol] 117 mg/dL Critically high 74-106 [facility] Comment on above: Performed By: #### C BC #### [facility] [address] [place] [address] Dr. Dwight Waters Phosphate [Mass/Vol] 3.2 mg/dL Normal 2.6-4.[address] [facility] Comment on above: Performed By: #### C BC #### [facility] [address] [place] [address] Dr. Dwight Waters Potassium [Moles/Vol] 4.1 mmol/L Normal 3.5-5.[address] [facility] Comment on above: Performed By: #### C BC #### [facility] [address] [place] [address] Dr. Dwight Waters Sodium [Moles/Vol] 144 mmol/L Normal 136-[address] [facility] Comment on above: Performed By: #### C BC #### [facility] [address] [place] [address] Dr. Dwight Waters Urea nitrogen [Mass/Vol] 13.0 mg/dL Normal 7.0-18.[address] [facility] Comment on above: Performed By: #### C BC #### [facility] [address] [place] [address] Dr. Dwight Waters SGOTon 12-29-2022 AST [Catalytic activity/Vol] 21 U/L Normal 15-[address] [facility] Comment on above: Performed By: #### C BC #### [facility] [address] [place] [address] Dr. Dwight Waters SGPTon 12-29-2022 ALT [Catalytic activity/Vol] 32 U/L Normal 16-63 [facility] Comment on above: Performed By: #### C BC #### [facility] [address] [place] [address] Dr. Dwight Waters URINE T PROTEIN CREAT RATIOo n 12-29-2022 Protein (U) [Mass/Vol] 14.3 mg/dL Critically high <=12.[address] [facility] Comment on above: Performed By: #### U RTPCR #### [facility] [address] [place] [address] Dr. Dwight Waters UR PROT CREAT RAT 0.[address] [facility] Comment on above: Performed By: #### U RTPCR #### [facility] [address] [place] [place] [address] Dr. Dwight Waters URINE CREAT 86.58 mg/dL Normal 20.00-300.00 [facility] Comment on above: Performed By: #### U RTPCR #### [facility] [address] [place] [address] Dr. Dwight Waters FK506 (TACROLIMUS) WHOLE BLO ODon 11-06-2022 Tacrolimus (FK506), Blood 4.9 ng/mL Normal 2.0-20.0 [facility] Comment on above: Result Comment: Trou gh (immediately following transplant) 15.0 . Trough (steady state, 2 weeks or more after transplant): 3.0 - 8.0 . Performed by LC-MS/MS technology. Performed By: #### U RTPCR #### [facility] [address] [place] [address] Dr. Dwight Waters ALKALINE PHOSPHAon ALP [Catalytic activity/Vol] 86 U/L Normal 46-116 [facility] Comment on above: Performed By: #### U RTPCR #### [facility] [address] [place] [address] Dr. Dwight Waters BILIRUBIN CONJUGATED (DIRECT )on 11-04-2022 BILI, CONJUGATED 0.2 mg/dL Normal 0.0-0.[address] [facility] Comment on above: Performed By: #### U RTPCR #### [facility] [address] [place] [address] Dr. Dwight Waters BILIRUBIN TOTALon 11-04-2022 Bilirubin [Mass/Vol] 0.8 mg/dL Normal 0.2-1.[address] [facility] Comment on above: Performed By: #### U RTPCR #### [facility] [address] [place] [address] Dr. Dwight Waters CBC AUTO DIFFon 11-04-2022 BASO # 0.1 103/ul Normal 0.0-0.[address] [facility] Comment on above: Performed By: #### U RTPCR #### [facility] [address] [place] [place] [address] Dr. Dwight Waters Basophils/100 WBC (Bld) 0.9 % Normal 0.2-2.[address] [facility] Comment on above: Performed By: #### U RTPCR #### [facility] [address] [place] [address] Dr. Dwight Waters EO # 0.2 103/ul Normal 0.0-0.7 [facility] Comment on above: Performed By: #### U RTPCR #### [facility] [address] [place] [place] [address] Dr. Dwight Waters Eosinophils/100 WBC (Bld) 3.7 % Normal 0.9-7.0 [facility] Comment on above: Performed By: #### U RTPCR #### [facility] [address] [place] [place] [address] Dr. Dwight Waters Erythrocyte distribution width (RBC) [Ratio] 12.9 % Normal 11.0-15.[address] [facility] Comment on above: Performed By: #### U RTPCR #### [facility] [address] [place] [place] [address] Dr. Dwight Waters Hematocrit (Bld) [Volume fraction] 48.3 % Normal 42.0-54.[address] [facility] Comment on above: Performed By: #### U RTPCR #### [facility] [address] [place] [place] [address] Dr. Dwight Waters Hemoglobin (Bld) [Mass/Vol] 15.6 g/dL Normal 14.0-18.[address] [facility] Comment on above: Performed By: #### U RTPCR #### [facility] [address] [place] [place] [address] Dr. Dwight Waters IG # 0.01 10e3/ul Normal 0.00-0.[address] [facility] Comment on above: Performed By: #### U RTPCR #### [facility] [address] [place] [place] [address] Dr. Dwight Waters IG % 0.2 % Normal 0.0-0.[address] [facility] Comment on above: Performed By: #### U RTPCR #### [facility] [address] [place] [place] [address] Dr. Dwight Waters LYMPH # 1.9 103/ul Normal 1.2-3.[address] [facility] Comment on above: Performed By: #### U RTPCR #### [facility] [address] [place] [place] [address] Dr. Dwight Waters Lymphocytes/100 WBC (Bld) 33.0 % Normal 20.5-60.[address] [facility] Comment on above: Performed By: #### U RTPCR #### [facility] [address] [place] [place] [address] Dr. Dwight Waters MANUAL DIFF REQ NO Normal [facility] Comment on above: Performed By: #### U RTPCR #### [facility] [address] [place] [place] [address] Dr. Dwight Waters MCH (RBC) [Entitic mass] 27.6 pg Normal 25.9-34.[address] [facility] Comment on above: Performed By: #### U RTPCR #### [facility] [address] [place] [address] Dr. Dwight Waters MCHC (RBC) [Mass/Vol] 32.3 g/dL Normal 29.9-35.[address] [facility] Comment on above: Performed By: #### U RTPCR #### [facility] [address] [place] [place] [address] Dr. Dwight Waters MCV (RBC) [Entitic vol] 85.5 fL Normal 80.0-94.[address] [facility] Comment on above: Performed By: #### U RTPCR #### [facility] [address] [place] [place] [address] Dr. Dwight aWters MONO # 0.5 103/ul Normal 0.3-0.[address] [facility] Comment on above: Performed By: #### U RTPCR #### [facility] [address] [place] [place] [address] Dr. Dwight Waters Monocytes/100 WBC (Bld) 8.8 % Normal 1.7-12.[address] [facility] Comment on above: Performed By: #### U RTPCR #### [facility] [address] [place] [place] [address] Dr. Dwight Waters NEUT # 3.1 103/ul Normal 1.4-6.[address] [facility] Comment on above: Performed By: #### U RTPCR #### [facility] [address] [place] [place] [address] Dr. Dwight Waters Neutrophils/100 WBC (Bld) 53.4 % Normal 43.0-75.0 [facility] Comment on above: Performed By: #### U RTPCR #### [facility] [address] [place] [place] [address] Dr. Dwight Waters Platelet mean volume (Bld) [Entitic vol] 9.2 fL Critically low 9.5-13.[address] [facility] Comment on above: Performed By: #### U RTPCR #### [facility] [address] [place] [place] [address] Dr. Dwight Waters PLT 255 103/ul Normal 150-450 [facility] Comment on above: Performed By: #### U RTPCR #### [facility] [address] [place] [place] [address] Dr. Dwight Waters RBC 5.65 106/ul Normal 4.70-6.10 [facility] Comment on above: Performed By: #### U RTPCR #### [facility] [address] [place] [place] [address] Dr. Dwight Waters WBC 5.7 103/ul Normal 4.0-11.0 [facility] Comment on above: Performed By: #### U RTPCR #### [facility] [address] [place] [place] [address] Dr. Dwight Waters GGTon 11-04-2022 Gamma glutamyl transferase [Catalytic activity/Vol] 22 U/L Normal 15-85 [facility] Comment on above: Performed By: #### U RTPCR #### [facility] [address] [place] [place] [address] Dr. Dwight Waters MAGNESIUMon 11-04-2022 Magnesium [Mass/Vol] 1.8 mg/dL Normal 1.8-2.4 [facility] Comment on above: Performed By: #### U RTPCR #### [facility] [address] [place] [place] [address] Dr. Dwight Waters RENAL FUNCTION PANELon 11-04 Albumin [Mass/Vol] 3.8 g/dL Normal 3.4-5.0 [facility] Comment on above: Performed By: #### U RTPCR #### [facility] [address] [place] [place] [address] Dr. Dwight Waters Calcium [Mass/Vol] 9.3 mg/dL Normal 8.5-10.1 [facility] Comment on above: Performed By: #### U RTPCR #### [facility] [address] [place] [place] [address] Dr. Dwight Waters Chloride [Moles/Vol] 107 mmol/L Normal 98-107 [facility] Comment on above: Performed By: #### U RTPCR #### [facility] [address] [place] [place] [address] Dr. Dwight Waters CO2 [Moles/Vol] 29.2 mmol/L Normal 21.0-32.[address] [facility] Comment on above: Performed By: #### U RTPCR #### [facility] [address] [place] [place] [address] Dr. Dwight Waters Creatinine [Mass/Vol] 1.07 mg/dL Normal 0.70-1.[address] [facility] Comment on above: Performed By: #### U RTPCR #### [facility] [address] [place] [place] [address] Dr. Dwight Waters EGFR-AF AUSTRALIAN >60 Normal >=[address] [facility] Comment on above: Performed By: #### U RTPCR #### [facility] [address] [place] [place] [address] Dr. Dwight Waters EGFR-NON AF AUSTRALIAN >60 Normal >=[address] [facility] Comment on above: Performed By: #### U RTPCR #### [facility] [address] [place] [place] [address] Dr. Dwight Waters Glucose [Mass/Vol] 106 mg/dL Normal 74-[address] [facility] Comment on above: Performed By: #### U RTPCR #### [facility] [address] [place] [address] Dr. Dwight Waters Phosphate [Mass/Vol] 2.8 mg/dL Normal 2.6-4.[address] [facility] Comment on above: Performed By: #### U RTPCR #### [facility] [address] [place] [place] [address] Dr. Dwight Waters Potassium [Moles/Vol] 4.1 mmol/L Normal 3.5-5.1 [facility] Comment on above: Performed By: #### U RTPCR #### [facility] [address] [place] [place] [address] Dr. Dwight Waters Sodium [Moles/Vol] 143 mmol/L Normal 136-145 [facility] Comment on above: Performed By: #### U RTPCR #### [facility] [address] [place] [place] [address] Dr. Dwight Waters Urea nitrogen [Mass/Vol] 12.0 mg/dL Normal 7.0-18.0 [facility] Comment on above: Performed By: #### U RTPCR #### [facility] [address] [place] [address] Dr. Dwight OLVERAOTon 11-04-2022 AST [Catalytic activity/Vol] 19 U/L Normal 15-37 [facility] Comment on above: Performed By: #### U RTPCR #### [facility] [address] [place] [place] [address] Dr. Dwight Waters SGPTon 11-04-2022 ALT [Catalytic activity/Vol] 28 U/L Normal 16-63 [facility] Comment on above: Performed By: #### U RTPCR #### [facility] [address] [place] [address] Dr. Dwight Waters URINE T PROTEIN CREAT RATIOo n 11-04-2022 Protein (U) [Mass/Vol] 10.7 mg/dL Normal <=12.[address] [facility] Comment on above: Performed By: #### U RTPCR #### [facility] [address] [place] [address] Dr. Dwight Waters UR PROT CREAT RAT 0.13 Normal [facility] Comment on above: Performed By: #### U RTPCR #### [facility] [address] [place] [place] [address] Dr. Dwight Waters URINE CREAT 84.50 mg/dL Normal 20.00-300.00 [facility] Comment on above: Performed By: #### U RTPCR #### [facility] [address] [place] [address] Dr. Dwight Waters FK506 (TACROLIMUS) WHOLE BLO ODon 09-18-2022 Tacrolimus (FK506), Blood 4.6 ng/mL Normal 2.0-20.0 [facility] Comment on above: Result Comment: Trou gh (immediately following transplant) 15.0 . Trough (steady state, 2 weeks or more after transplant): 3.0 - 8.0 . Performed by LC-MS/MS technology. Performed By: #### U RTPCR #### [facility] [address] [place] [address] Dr. Dwight Waters BK VIRUS PCR QUANTon 022 BKV DNA QUANT PCR PLASMA Negative Normal Negative [facility] Comment on above: Result Comment: No B K DNA detected. . The linear range of the assay is 22 - 100,000,000 IU/mL. Performed By: #### U RTPCR #### [facility] [address] [place] [address] Dr. Dwight Waters Log10 BKV DNA Plasma Normal [facility] Comment on above: Performed By: #### U RTPCR #### [facility] [address] [place] [place] [address] Dr. Dwight Waters ALKALINE PHOSPHAon ALP [Catalytic activity/Vol] 92 U/L Normal 46-[address] [facility] Comment on above: Performed By: #### U RTPCR #### [facility] [address] [place] [address] Dr. Dwight Waters BILIRUBIN CONJUGATED (DIRECT )on 09-15-2022 BILI, CONJUGATED 0.3 mg/dL Critically high 0.0-0.[address] [facility] Comment on above: Performed By: #### U RTPCR #### [facility] [address] [place] [address] Dr. Dwight Waters BILIRUBIN TOTALon 09-15-2022 Bilirubin [Mass/Vol] 1.1 mg/dL Critically high 0.2-1.[address] [facility] Comment on above: Performed By: #### U RTPCR #### [facility] [address] [place] [address] Dr. Dwight Waters CBC AUTO DIFFon 09-15-2022 BASO # 0.1 103/ul Normal 0.0-0.[address] [facility] Comment on above: Performed By: #### C BC #### [facility] [address] [place] [address] Dr. Dwight Waters Basophils/100 WBC (Bld) 0.8 % Normal 0.2-2.[address] [facility] Comment on above: Performed By: #### C BC #### [facility] [address] [place] [address] Dr. Dwight Waters EO # 0.2 103/ul Normal 0.0-0.[address] [facility] Comment on above: Performed By: #### C BC #### [facility] [address] [place] [address] Dr. Dwight Waters Eosinophils/100 WBC (Bld) 3.5 % Normal 0.9-7.[address] [facility] Comment on above: Performed By: #### C BC #### [facility] [address] [place] [address] Dr. Dwight Waters Erythrocyte distribution width (RBC) [Ratio] 13.0 % Normal 11.0-15.[address] [facility] Comment on above: Performed By: #### C BC #### [facility] [address] [place] [address] Dr. Dwight Waters Hematocrit (Bld) [Volume fraction] 50.0 % Normal 42.0-54.[address] [facility] Comment on above: Performed By: #### C BC #### [facility] [address] [place] [address] Dr. Dwight Waters Hemoglobin (Bld) [Mass/Vol] 16.0 g/dL Normal 14.0-18.[address] [facility] Comment on above: Performed By: #### C BC #### [facility] [address] [place] [address] Dr. Dwight Waters IG # 0.02 10e3/ul Normal 0.00-0.[address] [facility] Comment on above: Performed By: #### C BC #### [facility] [address] [place] [address] Dr. Dwight Waters IG % 0.3 % Normal 0.0-0.5 [facility] Comment on above: Performed By: #### C BC #### [facility] [address] [place] [address] Dr. Dwight Waters LYMPH # 1.8 103/ul Normal 1.2-3.[address] [facility] Comment on above: Performed By: #### C BC #### [facility] [address] [place] [address] Dr. Dwight Waters Lymphocytes/100 WBC (Bld) 26.5 % Normal 20.5-60.[address] [facility] Comment on above: Performed By: #### C BC #### [facility] [address] [place] [address] Dr. Dwight Waters MANUAL DIFF REQ NO Normal [facility] Comment on above: Performed By: #### C BC #### [facility] [address] [place] [address] Dr. Dwight Waters MCH (RBC) [Entitic mass] 28.1 pg Normal 25.9-34.[address] [facility] Comment on above: Performed By: #### C BC #### [facility] [address] [place] [address] Dr. Dwight Waters MCHC (RBC) [Mass/Vol] 32.0 g/dL Normal 29.9-35.[address] [facility] Comment on above: Performed By: #### C BC #### [facility] [address] [place] [address] Dr. Dwight Waters MCV (RBC) [Entitic vol] 87.9 fL Normal 80.0-94.[address] [facility] Comment on above: Performed By: #### C BC #### [facility] [address] [place] [address] Dr. Dwight Waters MONO # 0.5 103/ul Normal 0.3-0.[address] [facility] Comment on above: Performed By: #### C BC #### [facility] [address] [place] [place] [address] Dr. Dwight Waters Monocytes/100 WBC (Bld) 8.1 % Normal 1.7-12.[address] [facility] Comment on above: Performed By: #### C BC #### [facility] [address] [place] [address] Dr. Dwight Waters NEUT # 4.0 103/ul Normal 1.4-6.5 [facility] Comment on above: Performed By: #### C BC #### [facility] [address] [place] [place] [address] Dr. Dwight Waters Neutrophils/100 WBC (Bld) 60.8 % Normal 43.0-75.0 [facility] Comment on above: Performed By: #### C BC #### [facility] [address] [address] [address] Dwight Waters Platelet mean volume (Bld) [Entitic vol] 9.4 fL Critically low 9.5-13.[address] [facility] Comment on above: Performed By: #### C BC #### [facility] [address] [address] Dr. Dwight Waters PLT 265 103/ul Normal 150-450 [facility] Comment on above: Performed By: #### C BC #### [facility] [address] [address] [address] Dwight Waters RBC 5.69 106/ul Normal 4.70-6.10 [facility] Comment on above: Performed By: #### C BC #### [facility] [address] [place] [address] Dr. Dwight Waters WBC 6.6 103/ul Normal 4.0-11.[address] [facility] Comment on above: Performed By: #### C BC #### [facility] [address] [place] [address] Dr. Dwight Waters GGTon 09-15-2022 Gamma glutamyl transferase [Catalytic activity/Vol] 23 U/L Normal 15-[address] [facility] Comment on above: Performed By: #### U RTPCR #### [facility] [address] [place] [address] Dr. Dwight Waters MAGNESIUMon 09-15-2022 Magnesium [Mass/Vol] 1.8 mg/dL Normal 1.8-2.[address] [facility] Comment on above: Performed By: #### U RTPCR #### [facility] [address] [place] [address] Dr. Dwight Waters RENAL FUNCTION PANELon 09-15 Albumin [Mass/Vol] 4.1 g/dL Normal 3.4-5.[address] [facility] Comment on above: Performed By: #### C BC #### [facility] [address] [place] [address] Dr. Dwight Waters Calcium [Mass/Vol] 9.3 mg/dL Normal 8.5-10.[address] [facility] Comment on above: Performed By: #### C BC #### [facility] [address] [place] [address] Dr. Dwight Waters Chloride [Moles/Vol] 107 mmol/L Normal 98-[address] [facility] Comment on above: Performed By: #### C BC #### [facility] [address] [place] [place] [address] Dr. Dwight Waters CO2 [Moles/Vol] 25.6 mmol/L Normal 21.0-32.[address] [facility] Comment on above: Performed By: #### C BC #### [facility] [address] [place] [address] Dr. Dwight Waters Creatinine [Mass/Vol] 1.01 mg/dL Normal 0.70-1.[address] [facility] Comment on above: Performed By: #### C BC #### [facility] [address] [place] [address] Dr. Dwight Waters EGFR-AF AUSTRALIAN >60 Normal >=[address] [facility] Comment on above: Performed By: #### C BC #### [facility] [address] [place] [place] [address] Dr. Dwight Waters EGFR-NON AF AUSTRALIAN >60 Normal >=[address] [facility] Comment on above: Performed By: #### C BC #### [facility] [address] [place] [place] [address] Dr. Dwight Waters Glucose [Mass/Vol] 119 mg/dL Critically high 74-106 [facility] Comment on above: Performed By: #### C BC #### [facility] [address] [place] [place] [address] Dr. Dwight Waters Phosphate [Mass/Vol] 2.8 mg/dL Normal 2.6-4.[address] [facility] Comment on above: Performed By: #### C BC #### [facility] [address] [place] [place] [address] Dr. Dwight Waters Potassium [Moles/Vol] 4.0 mmol/L Normal 3.5-5.[address] [facility] Comment on above: Performed By: #### C BC #### [facility] [address] [place] [place] [address] Dr. Dwight Waters Sodium [Moles/Vol] 141 mmol/L Normal 136-[address] [facility] Comment on above: Performed By: #### C BC #### [facility] [address] [place] [place] [address] Dr. Dwight Waters Urea nitrogen [Mass/Vol] 15.0 mg/dL Normal 7.0-18.[address] [facility] Comment on above: Performed By: #### C BC #### [facility] [address] [place] [place] [address] Dr. Dwight OLVERAOTon 09-15-2022 AST [Catalytic activity/Vol] 18 U/L Normal 15-[address] [facility] Comment on above: Performed By: #### U RTPCR #### [facility] [address] [place] [place] [address] Dr. Dwight OLVERAPTon 09-15-2022 ALT [Catalytic activity/Vol] 32 U/L Normal 16-[address] [facility] Comment on above: Performed By: #### C BC #### [facility] [address] [place] [address] Dr. Dwight Waters URINE T PROTEIN CREAT RATIOo n 09-15-2022 Protein (U) [Mass/Vol] 14.1 mg/dL Critically high <=12.[address] [facility] Comment on above: Performed By: #### U RTPCR #### [facility] [address] [place] [place] [address] Dr. Dwight Waters UR PROT CREAT RAT 0.[address] [facility] Comment on above: Performed By: #### U RTPCR #### [facility] [address] [place] [place] [address] Dr. Dwight Waters URINE CREAT 98.89 mg/dL Normal 20.00-300.[address] [facility] Comment on above: Performed By: #### U RTPCR #### [facility] [address] [place] [place] [address] Dr. Dwight Waters US CAROTID ART BILon [...] MÓNICA JIMENEZ Date: 2022-08-28 13:20 Normal [facility] [...] F K506T #### [facility] [address] [place] [address] Dr. Dwight Waters BK VIRUS PCR QUANTon 022 BKV DNA QUANT PCR PLASMA Negative Normal Negative [facility] Comment on above: Result Comment: No B K DNA detected. . The linear range of the assay is 22 - 100,000,000 IU/mL. Performed By: #### U RTPCR #### [facility] [address] [place] [address] Dr. Dwight Waters Log10 BKV DNA Plasma Normal [facility] Comment on above: Performed By: #### U RTPCR #### [facility] [address] [place] [place] [address] Dr. Dwight Waters ALBUMINon 08-14-2022 Albumin [Mass/Vol] 4.2 g/dL Normal 3.4-5.[address] [facility] Comment on above: Performed By: #### F [id number] #### [facility] [address] [place] [place] [address] Dr. Dwight Waters ALKALINE PHOSPHAon ALP [Catalytic activity/Vol] 92 U/L Normal 46-116 [facility] Comment on above: Performed By: #### C BC #### [facility] [address] [place] [place] [address] Dr. Dwight Waters BILIRUBIN CONJUGATED (DIRECT )on 08-14-2022 BILI, CONJUGATED 0.3 mg/dL Critically high 0.0-0.[address] [facility] Comment on above: Performed By: #### F [id number] #### [facility] [address] [place] [place] [address] Dr. Dwight Waters BILIRUBIN TOTALon 08-14-2022 Bilirubin [Mass/Vol] 1.5 mg/dL Critically high 0.2-1.0 [facility] Comment on above: Performed By: #### F [id number] #### [facility] [address] [place] [place] [address] Dr. Dwight Waters BUNon 08-14-2022 Urea nitrogen [Mass/Vol] 11.0 mg/dL Normal 7.0-18.0 [facility] Comment on above: Performed By: #### C BC #### [facility] [address] [place] [place] [address] Dr. Dwight Waters CALCIUMon 08-14-2022 Calcium [Mass/Vol] 9.4 mg/dL Normal 8.5-10.1 [facility] Comment on above: Performed By: #### F [id number] #### [facility] [address] [place] [place] [address] Dr. Dwight Waters CBC AUTO DIFFon 08-14-2022 BASO # 0.0 103/ul Normal 0.0-0.1 [facility] Comment on above: Performed By: #### C MP #### [facility] [address] [place] [place] [address] Dr. Dwight Waters Basophils/100 WBC (Bld) 0.5 % Normal 0.2-2.0 [facility] Comment on above: Performed By: #### C MP #### [facility] [address] [place] [place] [address] Dr. Dwight Waters EO # 0.2 103/ul Normal 0.0-0.7 [facility] Comment on above: Performed By: #### C MP #### [facility] [address] [place] [place] [address] Dr. Dwight Waters Eosinophils/100 WBC (Bld) 2.6 % Normal 0.9-7.0 [facility] Comment on above: Performed By: #### C MP #### [facility] [address] [place] [place] [address] Dr. Dwight Waters Erythrocyte distribution width (RBC) [Ratio] 13.1 % Normal 11.0-15.0 [facility] Comment on above: Performed By: #### C MP #### [facility] [address] [place] [place] [address] Dr. Dwight Waters Hematocrit (Bld) [Volume fraction] 47.0 % Normal 42.0-54.0 [facility] Comment on above: Performed By: #### C MP #### [facility] [address] [place] [place] [address] Dr. Dwight Waters Hemoglobin (Bld) [Mass/Vol] 15.3 g/dL Normal 14.0-18.0 [facility] Comment on above: Performed By: #### C MP #### [facility] [address] [place] [place] [address] Dr. Dwight Waters IG # 0.01 10e3/ul Normal 0.00-0.03 [facility] Comment on above: Performed By: #### C MP #### [facility] [address] [place] [place] [address] Dr. Dwight Waters IG % 0.1 % Normal 0.0-0.5 [facility] Comment on above: Performed By: #### C MP #### [facility] [address] [place] [place] [address] Dr. Dwight Waters LYMPH # 2.3 103/ul Normal 1.2-3.8 [facility] Comment on above: Performed By: #### C MP #### [facility] [address] [place] [place] [address] Dr. Dwight Waters Lymphocytes/100 WBC (Bld) 29.8 % Normal 20.5-60.0 [facility] Comment on above: Performed By: #### C MP #### [facility] [address] [place] [place] [address] Dr. Dwight Waters MANUAL DIFF REQ NO Normal [facility] Comment on above: Performed By: #### C MP #### [facility] [address] [place] [place] [address] Dr. Dwight Waters MCH (RBC) [Entitic mass] 28.2 pg Normal 25.9-34.[address] [facility] Comment on above: Performed By: #### C MP #### [facility] [address] [place] [place] [address] Dr. Dwight Waters MCHC (RBC) [Mass/Vol] 32.6 g/dL Normal 29.9-35.2 [facility] Comment on above: Performed By: #### C MP #### [facility] [address] [place] [place] [address] Dr. Dwight Waters MCV (RBC) [Entitic vol] 86.7 fL Normal 80.0-94.[address] [facility] Comment on above: Performed By: #### C MP #### [facility] [address] [place] [place] [address] Dr. Dwight Waters MONO # 0.7 103/ul Normal 0.3-0.[address] [facility] Comment on above: Performed By: #### C MP #### [facility] [address] [place] [place] [address] Dr. Dwight Waters Monocytes/100 WBC (Bld) 8.5 % Normal 1.7-12.[address] [facility] Comment on above: Performed By: #### C MP #### [facility] [address] [place] [place] [address] Dr. Dwight Waters NEUT # 4.5 103/ul Normal 1.4-6.5 [facility] Comment on above: Performed By: #### C MP #### [facility] [address] [place] [place] [address] Dr. Dwight Waters Neutrophils/100 WBC (Bld) 58.5 % Normal 43.0-75.0 [facility] Comment on above: Performed By: #### C MP #### [facility] [address] [place] [place] [address] Dr. Dwight Waters Platelet mean volume (Bld) [Entitic vol] 9.7 fL Normal 9.5-13.[address] [facility] Comment on above: Performed By: #### C MP #### [facility] [address] [place] [place] [address] Dr. Dwight Waters PLT 266 103/ul Normal 150-450 [facility] Comment on above: Performed By: #### C MP #### [facility] [address] [place] [place] [address] Dr. Dwight Waters RBC 5.42 106/ul Normal 4.70-6.10 [facility] Comment on above: Performed By: #### C MP #### [facility] [address] [place] [place] [address] Dr. Dwight Waters WBC 7.6 103/ul Normal 4.0-11.0 [facility] Comment on above: Performed By: #### C MP #### [facility] [address] [place] [place] [address] Dr. Dwight Waters CHLORIDEon 08-14-2022 Chloride [Moles/Vol] 104 mmol/L Normal 98-[address] [facility] Comment on above: Performed By: #### C BC #### [facility] [address] [place] [place] [address] Dr. Dwight Waters CO2on 08-14-2022 CO2 [Moles/Vol] 27.9 mmol/L Normal 21.0-32.0 [facility] Comment on above: Performed By: #### C BC #### [facility] [address] [place] [place] [address] Dr. Dwight Waters CREATININEon 08-14-2022 Creatinine [Mass/Vol] 1.08 mg/dL Normal 0.70-1.30 [facility] Comment on above: Performed By: #### C BC #### [facility] [address] [place] [place] [address] Dr. Dwight Waters EGFR-AF AUSTRALIAN >60 Normal >=[address] [facility] Comment on above: Performed By: #### C BC #### [facility] [address] [place] [place] [address] Dr. Dwight Waters EGFR-NON AF AUSTRALIAN >60 Normal >=[address] [facility] Comment on above: Performed By: #### C BC #### [facility] [address] [place] [place] [address] Dr. Dwight Waters GGTon 08-14-2022 Gamma glutamyl transferase [Catalytic activity/Vol] 24 U/L Normal 15-[address] [facility] Comment on above: Performed By: #### F [id number] #### [facility] [address] [place] [place] [address] Dr. Dwight Waters GLUCOSE BLOODon 08-14-2022 Glucose [Mass/Vol] 111 mg/dL Critically high 74-106 [facility] Comment on above: Performed By: #### C BC #### [facility] [address] [place] [address] Dr. Dwight Waters MAGNESIUMon 08-14-2022 Magnesium [Mass/Vol] 1.4 mg/dL Critically low 1.8-2.[address] [facility] Comment on above: Performed By: #### C BC #### [facility] [address] [place] [address] Dr. Dwight Waters NAon 08-14-2022 Sodium [Moles/Vol] 140 mmol/L Normal 136-[address] [facility] Comment on above: Performed By: #### F [id number] #### [facility] [address] [place] [address] Dr. Dwight Waters PHOSPHORUSon 08-14-2022 Phosphate [Mass/Vol] 3.1 mg/dL Normal 2.6-4.[address] [facility] Comment on above: Performed By: #### C BC #### [facility] [address] [place] [address] Dr. Dwight Waters POTASSIUMon 08-14-2022 Potassium [Moles/Vol] 3.5 mmol/L Normal 3.5-5.[address] [facility] Comment on above: Performed By: #### C BC #### [facility] [address] [place] [address] Dr. Dwight Waters SGOTon 08-14-2022 AST [Catalytic activity/Vol] 17 U/L Normal 15-[address] [facility] Comment on above: Performed By: #### F [id number] #### [facility] [address] [place] [place] [address] Dr. Dwight Waters SGPTon 08-14-2022 ALT [Catalytic activity/Vol] 22 U/L Normal 16-[address] [facility] Comment on above: Performed By: #### F [id number] #### [facility] [address] [place] [address] Dr. Dwight Waters URINE T PROTEIN CREAT RATIOo n 08-14-2022 Protein (U) [Mass/Vol] 10.7 mg/dL Normal <=12.[address] [facility] Comment on above: Performed By: #### F [id number] #### [facility] [address] [place] [place] [address] Dr. Dwight Waters UR PROT CREAT RAT 0.[address] [facility] Comment on above: Performed By: #### F [id number] #### [facility] [address] [place] [place] [address] Dr. Dwight Waters URINE CREAT 104.28 mg/dL Normal 20.00-300.[address] [facility] Comment on above: Performed By: #### F [id number] #### [facility] [address] [place] [address] Dr. Dwight Waters NEPHROSTOMY TUBE REMOVALon 0 [...] Assisting physician present for entire procedure: yes [facility] Radiology Study observation (narrative) [facility] FK506 (TACROLIMUS) WHOLE BLO ODon 07-06-2022 Tacrolimus (FK506), Blood 9.5 ng/mL Normal 2.0-20.[address] [facility] Comment on above: Result Comment: Trou gh (immediately following transplant) 15.0 . Trough (steady state, 2 weeks or more after transplant): 3.0 - 8.0 . Performed by LC-MS/MS technology. Performed By: #### C MP #### [facility] [address] [place] [address] Dr. Dwight Waters ALBUMINon 07-03-2022 Albumin [Mass/Vol] 3.7 g/dL Normal 3.4-5.[address] [facility] Comment on above: Performed By: #### U RTPCR #### [facility] [address] [place] [place] [address] Dr. Dwight Waters ALKALINE PHOSPHAon ALP [Catalytic activity/Vol] 76 U/L Normal 46-116 [facility] Comment on above: Performed By: #### U RTPCR #### [facility] [address] [place] [address] Dr. Dwight Waters BILIRUBIN CONJUGATED (DIRECT )on 07-03-2022 BILI, CONJUGATED 0.3 mg/dL Critically high 0.0-0.[address] [facility] Comment on above: Performed By: #### C BC #### [facility] [address] [place] [address] Dr. Dwight Waters BILIRUBIN TOTALon 07-03-2022 Bilirubin [Mass/Vol] 1.4 mg/dL Critically high 0.2-1.[address] [facility] Comment on above: Performed By: #### C BC #### [facility] [address] [place] [address] Dr. Dwight Waters BUNon 07-03-2022 Urea nitrogen [Mass/Vol] 15.0 mg/dL Normal 7.0-18.[address] [facility] Comment on above: Performed By: #### C BC #### [facility] [address] [place] [address] Dr. Dwight Waters CALCIUMon 07-03-2022 Calcium [Mass/Vol] 9.4 mg/dL Normal 8.5-10.[address] [facility] Comment on above: Performed By: #### U RTPCR #### [facility] [address] [place] [place] [address] Dr. Dwight Waters CBC AUTO DIFFon 07-03-2022 BASO # 0.0 103/ul Normal 0.0-0.[address] [facility] Comment on above: Performed By: #### U RTPCR #### [facility] [address] [place] [place] [address] Dr. Dwight Waters Basophils/100 WBC (Bld) 0.6 % Normal 0.2-2.[address] [facility] Comment on above: Performed By: #### U RTPCR #### [facility] [address] [place] [place] [address] Dr. Dwight Waters EO # 0.2 103/ul Normal 0.0-0.[address] [facility] Comment on above: Performed By: #### U RTPCR #### [facility] [address] [place] [place] [address] Dr. Dwight Waters Eosinophils/100 WBC (Bld) 3.5 % Normal 0.9-7.0 [facility] Comment on above: Performed By: #### U RTPCR #### [facility] [address] [place] [place] [address] Dr. Dwight Waters Erythrocyte distribution width (RBC) [Ratio] 12.9 % Normal 11.0-15.[address] [facility] Comment on above: Performed By: #### U RTPCR #### [facility] [address] [place] [place] [address] Dr. Dwight Waters Hematocrit (Bld) [Volume fraction] 44.2 % Normal 42.0-54.[address] [facility] Comment on above: Performed By: #### U RTPCR #### [facility] [address] [place] [address] Dr. Dwight Waters Hemoglobin (Bld) [Mass/Vol] 14.6 g/dL Normal 14.0-18.0 [facility] Comment on above: Performed By: #### U RTPCR #### [facility] [address] [place] [address] Dr. Dwight Waters IG # 0.02 10e3/ul Normal 0.00-0.[address] [facility] Comment on above: Performed By: #### U RTPCR #### [facility] [address] [place] [place] [address] Dr. Dwight Waters IG % 0.3 % Normal 0.0-0.[address] [facility] Comment on above: Performed By: #### U RTPCR #### [facility] [address] [place] [address] Dr. Dwight Waters LYMPH # 2.0 103/ul Normal 1.2-3.[address] [facility] Comment on above: Performed By: #### U RTPCR #### [facility] [address] [place] [place] [address] Dr. Dwight Waters Lymphocytes/100 WBC (Bld) 28.4 % Normal 20.5-60.[address] [facility] Comment on above: Performed By: #### U RTPCR #### [facility] [address] [place] [address] Dr. Dwight Waters MANUAL DIFF REQ NO Normal [facility] Comment on above: Performed By: #### U RTPCR #### [facility] [address] [place] [address] Dr. Dwight Waters MCH (RBC) [Entitic mass] 28.6 pg Normal 25.9-34.[address] [facility] Comment on above: Performed By: #### U RTPCR #### [facility] [address] [place] [address] Dr. Dwight Waters MCHC (RBC) [Mass/Vol] 33.0 g/dL Normal 29.9-35.[address] [facility] Comment on above: Performed By: #### U RTPCR #### [facility] [address] [place] [address] Dr. Dwight Waters MCV (RBC) [Entitic vol] 86.7 fL Normal 80.0-94.[address] [facility] Comment on above: Performed By: #### U RTPCR #### [facility] [address] [place] [address] Dr. Dwight Waters MONO # 0.6 103/ul Normal 0.3-0.[address] [facility] Comment on above: Performed By: #### U RTPCR #### [facility] [address] [place] [place] [address] Dr. Dwight Waters Monocytes/100 WBC (Bld) 9.1 % Normal 1.7-12.[address] [facility] Comment on above: Performed By: #### U RTPCR #### [facility] [address] [place] [address] Dr. Dwight Waters NEUT # 4.0 103/ul Normal 1.4-6.[address] [facility] Comment on above: Performed By: #### U RTPCR #### [facility] [address] [place] [address] Dr. Dwight Waters Neutrophils/100 WBC (Bld) 58.1 % Normal 43.0-75.[address] [facility] Comment on above: Performed By: #### U RTPCR #### [facility] [address] [place] [place] [address] Dr. Dwight Waters Platelet mean volume (Bld) [Entitic vol] 9.5 fL Normal 9.5-13.5 [facility] Comment on above: Performed By: #### U RTPCR #### [facility] [address] [place] [address] Dr. Dwight Waters PLT 292 103/ul Normal 150-450 [facility] Comment on above: Performed By: #### U RTPCR #### [facility] [address] [place] [address] Dr. Dwight Waters RBC 5.10 106/ul Normal 4.70-6.10 [facility] Comment on above: Performed By: #### U RTPCR #### [facility] [address] [place] [place] [address] Dr. Dwight Waters WBC 6.9 103/ul Normal 4.0-11.[address] [facility] Comment on above: Performed By: #### U RTPCR #### [facility] [address] [place] [address] Dr. Dwight Waters CHLORIDEon 07-03-2022 Chloride [Moles/Vol] 108 mmol/L Critically high 98-107 [facility] Comment on above: Performed By: #### C BC #### [facility] [address] [place] [address] Dr. Dwight Waters CO2on 07-03-2022 CO2 [Moles/Vol] 25.2 mmol/L Normal 21.0-32.[address] [facility] Comment on above: Performed By: #### C BC #### [facility] [address] [place] [id number] Dr. Dwight Waters CREATININEon 07-03-2022 Creatinine [Mass/Vol] 1.03 mg/dL Normal 0.70-1.30 [facility] Comment on above: Performed By: #### U RTPCR #### [facility] [address] [place] [address] Dr. Dwight Waters EGFR-AF AUSTRALIAN >60 Normal >=60 [facility] Comment on above: Performed By: #### U RTPCR #### [facility] [address] [place] [place] [address] Dr. Dwight Waters EGFR-NON AF AUSTRALIAN >60 Normal >=60 [facility] Comment on above: Performed By: #### U RTPCR #### [facility] [address] [place] [address] Dr. Dwight aWters GGTon 07-03-2022 Gamma glutamyl transferase [Catalytic activity/Vol] 31 U/L Normal 15-85 [facility] Comment on above: Performed By: #### U RTPCR #### [facility] [address] [place] [address] Dr. Dwight Waters GLUCOSE BLOODon 07-03-2022 Glucose [Mass/Vol] 119 mg/dL Critically high 74-106 [facility] Comment on above: Performed By: #### U RTPCR #### [facility] [address] [place] [address] Dr. Dwight Waters MAGNESIUMon 07-03-2022 Magnesium [Mass/Vol] 1.4 mg/dL Critically low 1.8-2.[address] [facility] Comment on above: Performed By: #### C BC #### [facility] [address] [place] [address] Dr. Dwight Waters NAon 07-03-2022 Sodium [Moles/Vol] 142 mmol/L Normal 136-[address] [facility] Comment on above: Performed By: #### C MP #### [facility] [address] [place] [address] Dr. Dwight Waters PHOSPHORUSon 07-03-2022 Phosphate [Mass/Vol] 3.4 mg/dL Normal 2.6-4.[address] [facility] Comment on above: Performed By: #### C BC #### [facility] [address] [place] [address] Dr. Dwight Waters POTASSIUMon 07-03-2022 Potassium [Moles/Vol] 4.1 mmol/L Normal 3.5-5.[address] [facility] Comment on above: Performed By: #### C BC #### [facility] [address] [place] [place] [address] Dr. Dwight Waters SGOTon 07-03-2022 AST [Catalytic activity/Vol] 14 U/L Critically low 15-[address] [facility] Comment on above: Performed By: #### C BC #### [facility] [address] [place] [place] [address] Dr. Dwight Waters SGPTon 07-03-2022 ALT [Catalytic activity/Vol] 25 U/L Normal 16-[address] [facility] Comment on above: Performed By: #### C BC #### [facility] [address] [place] [address] Dr. Dwight Waters US KIDNEYSon 07-03-2022 US KIDNEYS Ultrasound kidneys, bilateral HISTORY: Transplant of kidney , pain in the right lower quadrant COMPARISON: None. TECHNIQUE: Transabdominal ultrasound imaging of both kidneys was performed. FINDINGS: The [place] kidneys are diffusely echogenic and atrophic with cortical thinning. The right kidney measures 8.3 x 3.5 x 4.07 m and the left measures 9.9 x 3.8 x 3.6 cm. No hydronephrosis of the [place] kidneys. There is a renal transplant [...] stone involving the renal transplant. 2. Atrophic [place] kidneys. 3. Normal bladder. Electronically authenticated by: ARCELIA PIZARRO Date: 2022-07-03 17:[address] [facility] CT Abdomen and Pelvis WO con traston 06-27-2022 IMPRESSION: 1. Both [place] kidneys are atrophic with improvement in [...] Adrenals: Adrenal glands are unremarkable. Kidneys: Both [place] kidneys are atrophic. Interval improvement in right [place] kidney hydronephrosis since May 15, 2022. [...] Adrenals: Adrenal glands are unremarkable. Kidneys: Both [place] kidneys are atrophic. Interval improvement in right [place] kidney hydronephrosis since May 15, 2022. [...] aggressive osseous lesions. IMPRESSION IMPRESSION: 1. Both [place] kidneys are atrophic with improvement in right-sided hydronephrosis since May 15, 2022. 2. 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 No hydronephrosis. No discrete perinephric collection. 3. Partially imaged postsurgical changes related to prior liver transplant. 4. The bladder is decompressed, limiting evaluation. [facility] Radiology Study observation (narrative) [facility] CT Abdomen and Pelvis WO con trastOrdered By: Gera Lu on 06-27-2022 [facility] Work Phone: CBC AUTO DIFFon 06-18-2022 BASO # 0.0 103/ul Normal 0.0-0.[address] [facility] Comment on above: Performed By: #### U RTPCR #### [facility] [address] [place] [place] [address] Dr. Dwight Waters Basophils/100 WBC (Bld) 0.5 % Normal 0.2-2.0 [facility] Comment on above: Performed By: #### U RTPCR #### [facility] [address] [place] [place] [address] Dr. Dwight Waters EO # 0.2 103/ul Normal 0.0-0.[address] [facility] Comment on above: Performed By: #### U RTPCR #### [facility] [address] [place] [place] [address] Dr. Dwight Waters Eosinophils/100 WBC (Bld) 2.3 % Normal 0.9-7.[address] [facility] Comment on above: Performed By: #### U RTPCR #### [facility] [address] [address] [address] Dwight Waters Erythrocyte distribution width (RBC) [Ratio] 12.9 % Normal 11.0-15.[address] [facility] Comment on above: Performed By: #### U RTPCR #### [facility] [address] [place] [place] [address] Dr. Dwight Waters Hematocrit (Bld) [Volume fraction] 41.2 % Critically low 42.0-54.0 [facility] Comment on above: Performed By: #### U RTPCR #### [facility] [address] [place] [place] [address] Dr. Dwight Waters Hemoglobin (Bld) [Mass/Vol] 13.3 g/dL Critically low 14.0-18.[address] [facility] Comment on above: Performed By: #### U RTPCR #### [facility] [address] [place] [place] [address] Dr. Dwight Waters IG # 0.04 10e3/ul Critically high 0.00-0.[address] [facility] Comment on above: Performed By: #### U RTPCR #### [facility] [address] [place] [place] [address] Dr. Dwight Waters IG % 0.5 % Normal 0.0-0.5 [facility] Comment on above: Performed By: #### U RTPCR #### [facility] [address] [place] [place] [address] Dr. Dwight Waters LYMPH # 2.0 103/ul Normal 1.2-3.8 [facility] Comment on above: Performed By: #### U RTPCR #### [facility] [address] [place] [place] [address] Dr. Dwight Waters Lymphocytes/100 WBC (Bld) 22.9 % Normal 20.5-60.0 [facility] Comment on above: Performed By: #### U RTPCR #### [facility] [address] [address] [address] Dwight Waters MANUAL DIFF REQ NO Normal [facility] Comment on above: Performed By: #### U RTPCR #### [facility] [address] [place] [place] [address] Dr. Dwight Waters MCH (RBC) [Entitic mass] 28.7 pg Normal 25.9-34.[address] [facility] Comment on above: Performed By: #### U RTPCR #### [facility] [address] [place] [place] [address] Dr. Dwight Waters MCHC (RBC) [Mass/Vol] 32.3 g/dL Normal 29.9-35.2 [facility] Comment on above: Performed By: #### U RTPCR #### [facility] [address] [place] [place] [address] Dr. Dwight Waters MCV (RBC) [Entitic vol] 88.8 fL Normal 80.0-94.[address] [facility] Comment on above: Performed By: #### U RTPCR #### [facility] [address] [place] [place] [address] Dr. Dwight Waters MONO # 0.8 103/ul Normal 0.3-0.[address] [facility] Comment on above: Performed By: #### U RTPCR #### [facility] [address] [place] [place] [address] Dr. Dwight Waters Monocytes/100 WBC (Bld) 9.7 % Normal 1.7-12.0 [facility] Comment on above: Performed By: #### U RTPCR #### [facility] [address] [place] [place] [address] Dr. Dwight Waters NEUT # 5.6 103/ul Normal 1.4-6.5 [facility] Comment on above: Performed By: #### U RTPCR #### [facility] [address] [place] [place] [address] Dr. Dwight Waters Neutrophils/100 WBC (Bld) 64.1 % Normal 43.0-75.0 [facility] Comment on above: Performed By: #### U RTPCR #### [facility] [address] [place] [place] [address] Dr. Dwight Waters Platelet mean volume (Bld) [Entitic vol] 10.0 fL Normal 9.5-13.5 [facility] Comment on above: Performed By: #### U RTPCR #### [facility] [address] [place] [place] [address] Dr. Dwight Waters PLT 270 103/ul Normal 150-450 [facility] Comment on above: Performed By: #### U RTPCR #### [facility] [address] [address] [address] Dwight Waters RBC 4.64 106/ul Critically low 4.70-6.10 [facility] Comment on above: Performed By: #### U RTPCR #### [facility] [address] [place] [place] [address] Dr. Dwight Waters WBC 8.7 103/ul Normal 4.0-11.0 [facility] Comment on above: Performed By: #### U RTPCR #### [facility] [address] [place] [place] [address] Dr. Dwight Waters CULTURE URINEon 06-18-2022 CULTURE URINE Culture Observations : NO GROWTH. Normal [facility] Comment on above: Performed By: #### U RTPCR #### [facility] [address] [place] [address] Dr. Dwight Watres Covid-19 PCR (CVDTBH)on 05-31 SARS-CoV-2 (COVID-19) RNA [...] for this test is supported by the [employer] Safety Engineer of Health and Human Service's declaration that [...] C BC #### [facility] [address] [place] [address] Dr. Dwight Waters ER URINE PROFILEon 2 Bilirubin Ql (U) Negative Normal NEGATIVE [facility] Comment on above: Performed By: #### U RTPCR #### [facility] [address] [place] [place] [address] Dr. Dwight Waters Clarity (U) CLEAR Normal CLEAR [facility] Comment on above: Performed By: #### U RTPCR #### [facility] [address] [place] [place] [address] Dr. Dwight Waters Color (U) YELLOW Normal YELLOW [facility] Comment on above: Performed By: #### U RTPCR #### [facility] [address] [place] [place] [address] Dr. Dwight Waters ERUAHD A micrscopic examina tion will be performed if indicated. Normal [facility] Comment on above: Performed By: #### U RTPCR #### [facility] [address] [place] [place] [address] Dr. Dwight Waters Glucose Ql (U) Negative Normal NEGATIVE [facility] Comment on above: Performed By: #### U RTPCR #### [facility] [address] [place] [place] [address] Dr. Dwight Waters Hemoglobin Ql (U) LARGE Abnormal NEGATIVE [facility] Comment on above: Performed By: #### U RTPCR #### [facility] [address] [place] [place] [address] Dr. Dwight Waters Ketones Ql (U) Negative Normal NEGATIVE [facility] Comment on above: Performed By: #### U RTPCR #### [facility] [address] [place] [place] [address] Dr. Dwight Waters LEUKOCYTES TRACE Abnormal NEGATIVE [facility] Comment on above: Performed By: #### U RTPCR #### [facility] [address] [place] [place] [address] Dr. Dwight Waters Nitrite Ql (U) Negative Normal NEGATIVE [facility] Comment on above: Performed By: #### U RTPCR #### [facility] [address] [place] [place] [address] Dr. Dwight Waters pH (U) 6.0 [pH] Normal 5-[address] [facility] Comment on above: Performed By: #### U RTPCR #### [facility] [address] [place] [address] Dr. Dwight Waters Protein (U) [Mass/Vol] 30 mg/dL Abnormal NEGATIVE/ TRACE [facility] Comment on above: Performed By: #### U RTPCR #### [facility] [address] [place] [place] [address] Dr. Dwight Waters SPEC GRAVITY >=1.030 Abnormal 1.005-<=1.[address] [facility] Comment on above: Performed By: #### U RTPCR #### [facility] [address] [place] [address] Dr. Dwight Waters UR MICRO IND INDICATED Normal [facility] Comment on above: Performed By: #### U RTPCR #### [facility] [address] [place] [place] [address] Dr. Dwight Waters Urobilinogen Qn (U) 0.2 {Alyssa'U}/dL Normal 0.2 - 1. [address] [facility] Comment on above: Performed By: #### U RTPCR #### [facility] [address] [place] [address] Dr. Dwight Waters PROF 14(COMP METB)on 022 Albumin [Mass/Vol] 3.7 g/dL Normal 3.4-5.0 [facility] Comment on above: Performed By: #### C MP #### [facility] [address] [place] [place] [address] Dr. Dwight Waters Albumin/Globulin [Mass ratio] 0.9 {ratio} Normal [facility] Comment on above: Performed By: #### C MP #### [facility] [address] [place] [place] [address] Dr. Dwight Waters ALP [Catalytic activity/Vol] 80 U/L Normal 46-116 [facility] Comment on above: Performed By: #### C MP #### [facility] [address] [place] [place] [address] Dr. Dwight Waters ALT [Catalytic activity/Vol] 24 U/L Normal 16-63 [facility] Comment on above: Performed By: #### C MP #### [facility] [address] [place] [place] [address] Dr. Dwight Waters Anion gap [Moles/Vol] 12.9 mmol/L Normal [facility] Comment on above: Performed By: #### C MP #### [facility] [address] [place] [place] [address] Dr. Dwight Waters AST [Catalytic activity/Vol] 17 U/L Normal 15-[address] [facility] Comment on above: Performed By: #### C MP #### [facility] [address] [place] [place] [address] Dr. Dwight Waters Bilirubin [Mass/Vol] 0.8 mg/dL Normal 0.2-1.[address] [facility] Comment on above: Performed By: #### C MP #### [facility] [address] [place] [place] [address] Dr. Dwight Waters Calcium [Mass/Vol] 9.4 mg/dL Normal 8.5-10.1 [facility] Comment on above: Performed By: #### C MP #### [facility] [address] [place] [place] [address] Dr. Dwight Waters Chloride [Moles/Vol] 106 mmol/L Normal 98-107 [facility] Comment on above: Performed By: #### C MP #### [facility] [address] [place] [place] [address] Dr. Dwight Waters CO2 [Moles/Vol] 25.3 mmol/L Normal 21.0-32.[address] [facility] Comment on above: Performed By: #### C MP #### [facility] [address] [place] [address] Dr. Dwight Waters Creatinine [Mass/Vol] 1.29 mg/dL Normal 0.70-1.[address] [facility] Comment on above: Performed By: #### C MP #### [facility] [address] [address] [address] Dwight Waters EGFR-AF AUSTRALIAN >60 Normal >=[address] [facility] Comment on above: Performed By: #### C MP #### [facility] [address] [address] [address] Dwight Waters EGFR-NON AF AUSTRALIAN 59 mL/min/1.73m2 Critically low >=[address] [facility] Comment on above: Performed By: #### C MP #### [facility] [address] [address] [address] Dwight Waters Globulin (S) [Mass/Vol] 4.2 g/dL Normal [facility] Comment on above: Performed By: #### C MP #### [facility] [address] [place] [place] [address] Dr. Dwight Waters Glucose [Mass/Vol] 106 mg/dL Normal 74-[address] [facility] Comment on above: Performed By: #### C MP #### [facility] [address] [address] [address] Dwight Waters Potassium [Moles/Vol] 4.2 mmol/L Normal 3.5-5.1 [facility] Comment on above: Performed By: #### C MP #### [facility] [address] [address] [address] Dwight Waters Protein [Mass/Vol] 7.9 g/dL Normal 6.4-8.2 [facility] Comment on above: Performed By: #### C MP #### [facility] [address] [address] [address] Dwight Waters Sodium [Moles/Vol] 140 mmol/L Normal 136-145 [facility] Comment on above: Performed By: #### C MP #### [facility] [address] [address] [address] Dwight Waters Urea nitrogen [Mass/Vol] 22.0 mg/dL Critically high 7.0-18.[address] [facility] Comment on above: Performed By: #### C MP #### [facility] [address] [place] [place] [address] Dr. Dwight Waters Urea nitrogen/Creatinine [Mass ratio] 17.1 mg/mg Normal [facility] Comment on above: Performed By: #### C MP #### [facility] [address] [place] [place] [address] Dr. Dwight Waters URINE MICROSCOPIC ONLYon BACTERIA TRACE Abnormal NONE SEEN [facility] Comment on above: Performed By: #### U RTPCR #### [facility] [address] [place] [place] [address] Dr. Dwight Waters Bacteria identified Cx Nom (U) INDICATED Normal [facility] Comment on above: Performed By: #### U RTPCR #### [facility] [address] [place] [place] [address] Dr. Dwight Waters CAST NONE SEEN Normal NONE SEEN [facility] Comment on above: Performed By: #### U RTPCR #### [facility] [address] [place] [place] [address] Dr. Dwight Waters Crystals LM Nom (Urine sed) NONE SEEN Normal NONE SEEN [facility] Comment on above: Performed By: #### U RTPCR #### [facility] [address] [place] [address] Dr. Dwight Waters Epithelial cells LM Ql (Urine sed) NONE SEEN Normal NONE SEEN /RARE [facility] Comment on above: Performed By: #### U RTPCR #### [facility] [address] [place] [place] [address] Dr. Dwight Waters MUCOUS NONE SEEN Normal NONE SEEN [facility] Comment on above: Performed By: #### U RTPCR #### [facility] [address] [place] [place] [address] Dr. Dwight Waters RBC 5-10 Abnormal 0-2 [facility] Comment on above: Performed By: #### U RTPCR #### [facility] [address] [place] [place] [address] Dr. Dwight Waters WBC 10-20 Abnormal NONE SEEN [facility] Comment on above: Performed By: #### U RTPCR #### [facility] [address] [address] [address] Dwight Waters ALLOSCREEN RECIPIENT (POST T X PRA)on 06-13-2022 AB SPECIFICITY CLASS COMMENT Antibody Specificity testing performed by [employer]. cPRA calculation based on identification of HLA antibody specificities at MFI >2000 and/or presence of CREG antibodies. [facility] Comment on above: Some of the reagents used for testing in the Clinical [facility]ocompatibility Laboratory have yet to be approved by the FDA. Our certification by CLIA to perform high complexity tests allows us to use these reagents in the context of a stringent QC program, and obviates the need for FDA approval.Testing performed by the [facility] Clinical Histocompatibility Laboratory. [facility] number: [id number]. CLIA number: [id number], Director: Carlito Merchant, PhD, D([facility]). ANTIBODY SPECIFICITY INTERPRETATION Detected [facility] CLASS I SPECIFICITIES Not detected [facility] CLASS II SPECIFICITIES Not detected [facility] HLA Ab (S) 0 % 0 [facility] EXTRA MICROon 06-13-2022 [facility] URINE CULTUREOrdered By: Jah Upton on 06-13-2022 Bacteria identified Cx Nom (Unsp spec) Growth [facility] Bacteria identified Cx Nom (Unsp spec) 10,000-50,000 CFU/mL Mixed skin shimon [facility] Comment on above: Multiple bacterial m orphotypes present. Suggest appropriate recollection if clinically indicated. [facility] CBC,PLATELETSon 06-12-2022 Erythrocyte distribution width (RBC) [Ratio] 13.0 % 10.9 - 14.3 % [facility] Hematocrit (Bld) [Volume fraction] 43.2 % 39.6 - 48.8 % [facility] Hemoglobin (Bld) [Mass/Vol] 13.9 g/dL 13.4 - 16.8 g/dL [facility] Interpretation and review of laboratory results Normal [facility] MCH (RBC) [Entitic mass] 28.7 pg 26.1 - 33.3 pg [facility] MCHC (RBC) [Mass/Vol] 32.2 g/dL 31.9 - 36.5 g/dL [facility] MCV (RBC) [Entitic vol] 89.1 fL 79.0 - 94.5 fL [facility] Platelet mean volume (Bld) [Entitic vol] 10.5 fL 8.7 - 12.3 fL [facility] Platelets (Bld) [#/Vol] 269 10*3/uL 146 - 337 K/uL [facility] RBC (Bld) [#/Vol] 4.85 10*6/uL [facility] WBC (Bld) [#/Vol] 7.68 10*3/uL 3.73 - 10. 10 K/uL [facility] CHEM 7 (LYTES,BUN,CREA,GLUC) on 06-12-2022 Anion gap [Moles/Vol] 14 mmol/L 7 - 17 mmol/L [facility] Chloride [Moles/Vol] 106 mmol/L 98 - 10 8 mmol/L [facility] CO2 [Moles/Vol] 25 mmol/L 21 - 31 mmol/L [facility] Creatinine [Mass/Vol] 1.26 mg/dL 0.70 - 1.30 mg/dL [facility] GFR/1.73 sq M.predicted CKD-EPI (S/P/Bld) [Vol rate/Area] 69 >=60 mL/min/1.73m 2 [facility] Comment on above: Reported eGFR is bas ed on the CKD-EPI 2020 equation using creatinine, age, and sex. Glucose [Mass/Vol] 83 mg/dL 70 - 99 mg/dL [facility] Osmolality Calc [Osmolality] [facility] Potassium [Moles/Vol] 3.8 mmol/L 3.5 - 5.0 mmol/L [facility] Sodium [Moles/Vol] 141 mmol/L 135 - 145 mmol/L [facility] Urea nitrogen [Mass/Vol] 18 mg/dL 7 - 25 mg/dL [facility] Urea nitrogen/Creatinine [Mass ratio] 14 mg[facility] GGTon 06-12-2022 Gamma glutamyl transferase [Catalytic activity/Vol] 20 U/L 8 - 64 U/L [facility] HEMOGLOBIN [id number] By: [employer] on 06-12-2022 Average glucose Estimated from glycated hemoglobin (Bld) [Mass/Vol] 126 mg/dL [facility] HbA1c (Bld) [Mass fraction] 6.0 % High 4.7 - 5.6 % [facility] Interpretation and review of laboratory results Abnormal [facility] HEPATIC FUNCTION PANELon Albumin [Mass/Vol] 4.3 g/dL 3.5 - 5.0 g/dL [facility] ALP [Catalytic activity/Vol] 78 U/L 32 - 126 U/L [facility] ALT [Catalytic activity/Vol] 12 U/L 10 - 52 U/L [facility] AST [Catalytic activity/Vol] 16 U/L 10 - 39 U/L [facility] Bilirubin [Mass/Vol] 1.0 mg/dL <1.5 [facility] Bilirubin.direct [Mass/Vol] 0.2 mg/dL <0.3 [facility] Protein [Mass/Vol] 7.5 g/dL 6.4 - 8.3 g/dL [facility] No Panel Informationon 06-12 Interpretation and review of laboratory results Normal [facility] PTH INTACTOrdered By: Marli Lizarraga on 06-12-2022 Interpretation and review of laboratory results Abnormal [facility] Parathyrin.intact [Mass/Vol] 79.7 pg/mL High 14.0 - 72.0 pg/mL [facility] URINALYSIS REFLEX TO CULTURE PERFORMABLEon 06-12-2022 Appearance (U) Clear Clear [facility] Bacteria LM Ql (Urine sed) ABSENT ABSENT [facility] Color (U) Yellow Yellow [facility] Epithelial cells.squamous LM Ql (Urine sed) 1/hpf = 1+ 1/hpf = 1+, 2-5/hpf = 2+, 0/hpf = 0+, ABSENT [facility] Glucose Test strip (U) [Mass/Vol] Negative Negative [facility] Interpretation and review of laboratory results Abnormal [facility] Ketones (U) [Mass/Vol] Trace Abnormal Negative [facility] Leukocyte esterase Test strip Ql (U) Small Abnormal Negative [facility] Nitrite Ql (U) Negative Negative [facility] pH (U) 5.5 [pH] 5.0 - 7.0 [facility] Protein (U) [Mass/Vol] 30 mg/dL Abnormal Negative [facility] RBC (U) [#/Vol] Trace Abnormal Negative [facility] RBC LM.HPF (Urine sed) [#/Area] 0-2 0 - 2 /HPF [facility] Specific gravity (U) [Rel density] 1.026 [facility] Urobilinogen (U) [Mass/Vol] 0.2 E.U./dL 0.2 E.U/dL, 1.0 E.U/dL [facility] WBC LM.HPF (Urine sed) [#/Area] 10-20 Abnormal 0 - 5 /HPF [facility] URINE PROTEIN/CREA RATIO, RA NDOMon 06-12-2022 Creatinine (24H U) [Mass/Vol] 231.68 mg/dL [facility] Protein Unsp time (U) [Mass/Vol] 49 mg/dL [facility] Protein/Creatinine (U) [Mass ratio] 0.211 mg/g [facility] FK506 (TACROLIMUS) WHOLE BLO ODon 06-09-2022 Tacrolimus (FK506), Blood 9.8 ng/mL Normal 2.0-20.0 [facility] Comment on above: Result Comment: Trou gh (immediately following transplant) 15.0 . Trough (steady state, 2 weeks or more after transplant): 3.0 - 8.0 . Performed by LC-MS/MS technology. Performed By: #### U RTPCR #### [facility] [address] [place] [address] Dr. Dwight Waters ALBUMINon 06-06-2022 Albumin [Mass/Vol] 3.8 g/dL Normal 3.4-5.[address] [facility] Comment on above: Performed By: #### C MP #### [facility] [address] [place] [address] Dr. Dwight Waters ALKALINE PHOSPHAon ALP [Catalytic activity/Vol] 82 U/L Normal 46-[address] [facility] Comment on above: Performed By: #### C MP #### [facility] [address] [place] [address] Dr. Dwight Waters BILIRUBIN CONJUGATED (DIRECT )on 06-06-2022 BILI, CONJUGATED 0.2 mg/dL Normal 0.0-0.[address] [facility] Comment on above: Performed By: #### C BC #### [facility] [address] [place] [address] Dr. Dwight Waters BILIRUBIN TOTALon 06-06-2022 Bilirubin [Mass/Vol] 1.0 mg/dL Normal 0.2-1.[address] [facility] Comment on above: Performed By: #### C BC #### [facility] [address] [place] [address] Dr. Dwight Waters BUNon 06-06-2022 Urea nitrogen [Mass/Vol] 18.0 mg/dL Normal 7.0-18.[address] [facility] Comment on above: Performed By: #### C BC #### [facility] [address] [place] [place] [address] Dr. Dwight Waters CALCIUMon 06-06-2022 Calcium [Mass/Vol] 9.4 mg/dL Normal 8.5-10.[address] [facility] Comment on above: Performed By: #### C MP #### [facility] [address] [place] [place] [address] Dr. Dwight Waters CBC AUTO DIFFon 06-06-2022 BASO # 0.1 103/ul Normal 0.0-0.[address] [facility] Comment on above: Performed By: #### U RTPCR #### [facility] [address] [address] [address] Dwight Waters Basophils/100 WBC (Bld) 0.8 % Normal 0.2-2.[address] [facility] Comment on above: Performed By: #### U RTPCR #### [facility] [address] [place] [place] [address] Dr. Dwight Waters EO # 0.3 103/ul Normal 0.0-0.[address] [facility] Comment on above: Performed By: #### U RTPCR #### [facility] [address] [place] [place] [address] Dr. Dwight Waters Eosinophils/100 WBC (Bld) 3.3 % Normal 0.9-7.[address] [facility] Comment on above: Performed By: #### U RTPCR #### [facility] [address] [place] [place] [address] Dr. Dwight Waters Erythrocyte distribution width (RBC) [Ratio] 12.4 % Normal 11.0-15.[address] [facility] Comment on above: Performed By: #### U RTPCR #### [facility] [address] [place] [place] [address] Dr. Dwight Waters Hematocrit (Bld) [Volume fraction] 45.1 % Normal 42.0-54.[address] [facility] Comment on above: Performed By: #### U RTPCR #### [facility] [address] [place] [place] [address] Dr. Dwight Waters Hemoglobin (Bld) [Mass/Vol] 14.4 g/dL Normal 14.0-18.[address] [facility] Comment on above: Performed By: #### U RTPCR #### [facility] [address] [place] [place] [address] Dr. Dwight Waters IG # 0.01 10e3/ul Normal 0.00-0.[address] [facility] Comment on above: Performed By: #### U RTPCR #### [facility] [address] [place] [place] [address] Dr. Dwight Waters IG % 0.1 % Normal 0.0-0.5 [facility] Comment on above: Performed By: #### U RTPCR #### [facility] [address] [place] [place] [address] Dr. Dwight Waters LYMPH # 2.2 103/ul Normal 1.2-3.[address] [facility] Comment on above: Performed By: #### U RTPCR #### [facility] [address] [place] [place] [address] Dr. Dwight Waters Lymphocytes/100 WBC (Bld) 30.0 % Normal 20.5-60.[address] [facility] Comment on above: Performed By: #### U RTPCR #### [facility] [address] [place] [place] [address] Dr. Dwight Waters MANUAL DIFF REQ NO Normal [facility] Comment on above: Performed By: #### U RTPCR #### [facility] [address] [place] [place] [address] Dr. Dwight Waters MCH (RBC) [Entitic mass] 28.2 pg Normal 25.9-34.[address] [facility] Comment on above: Performed By: #### U RTPCR #### [facility] [address] [place] [place] [address] Dr. Dwight Waters MCHC (RBC) [Mass/Vol] 31.9 g/dL Normal 29.9-35.[address] [facility] Comment on above: Performed By: #### U RTPCR #### [facility] [address] [place] [place] [address] Dr. Dwight Waters MCV (RBC) [Entitic vol] 88.3 fL Normal 80.0-94.[address] [facility] Comment on above: Performed By: #### U RTPCR #### [facility] [address] [place] [place] [address] Dr. Dwight Waters MONO # 0.6 103/ul Normal 0.3-0.[address] [facility] Comment on above: Performed By: #### U RTPCR #### [facility] [address] [place] [place] [address] Dr. Dwight Waters Monocytes/100 WBC (Bld) 8.2 % Normal 1.7-12.[address] [facility] Comment on above: Performed By: #### U RTPCR #### [facility] [address] [place] [place] [address] Dr. Dwight Waters NEUT # 4.3 103/ul Normal 1.4-6.[address] [facility] Comment on above: Performed By: #### U RTPCR #### [facility] [address] [place] [place] [address] Dr. Dwight Waters Neutrophils/100 WBC (Bld) 57.6 % Normal 43.0-75.0 [facility] Comment on above: Performed By: #### U RTPCR #### [facility] [address] [place] [place] [address] Dr. Dwight Waters Platelet mean volume (Bld) [Entitic vol] 9.7 fL Normal 9.5-13.5 [facility] Comment on above: Performed By: #### U RTPCR #### [facility] [address] [place] [place] [address] Dr. Dwight Waters PLT 297 103/ul Normal 150-450 [facility] Comment on above: Performed By: #### U RTPCR #### [facility] [address] [place] [place] [address] Dr. Dwight Waters RBC 5.11 106/ul Normal 4.70-6.10 [facility] Comment on above: Performed By: #### U RTPCR #### [facility] [address] [place] [place] [address] Dr. Dwight Waters WBC 7.5 103/ul Normal 4.0-11.0 [facility] Comment on above: Performed By: #### U RTPCR #### [facility] [address] [place] [place] [address] Dr. Dwight Waters CHLORIDEon 06-06-2022 Chloride [Moles/Vol] 107 mmol/L Normal 98-107 [facility] Comment on above: Performed By: #### C BC #### [facility] [address] [place] [place] [address] Dr. Dwight Waters CO2on 06-06-2022 CO2 [Moles/Vol] 27.4 mmol/L Normal 21.0-32.0 [facility] Comment on above: Performed By: #### C BC #### [facility] [address] [address] [address] Dwight Waters CREATININEon 06-06-2022 Creatinine [Mass/Vol] 1.20 mg/dL Normal 0.70-1.[address] [facility] Comment on above: Performed By: #### C BC #### [facility] [address] [address] [address] Dwight Waters EGFR-AF AUSTRALIAN >60 Normal >=[address] [facility] Comment on above: Performed By: #### C BC #### [facility] [address] [address] [address] Dwight Waters EGFR-NON AF AUSTRALIAN >60 Normal >=[address] [facility] Comment on above: Performed By: #### C BC #### [facility] [address] [place] [place] [address] Dr. Dwight Waters GGTon 06-06-2022 Gamma glutamyl transferase [Catalytic activity/Vol] 29 U/L Normal 15-[address] [facility] Comment on above: Performed By: #### C BC #### [facility] [address] [place] [place] [address] Dr. Dwight Waters GLUCOSE BLOODon 06-06-2022 Glucose [Mass/Vol] 112 mg/dL Critically high 74-106 [facility] Comment on above: Performed By: #### C BC #### [facility] [address] [place] [place] [address] Dr. Dwight Waters MAGNESIUMon 06-06-2022 Magnesium [Mass/Vol] 1.3 mg/dL Critically low 1.8-2.[address] [facility] Comment on above: Performed By: #### C MP #### [facility] [address] [place] [place] [address] Dr. Dwight Waters NAon 06-06-2022 Sodium [Moles/Vol] 141 mmol/L Normal 136-[address] [facility] Comment on above: Performed By: #### C MP #### [facility] [address] [place] [place] [address] Dr. Dwight Waters PHOSPHORUSon 06-06-2022 Phosphate [Mass/Vol] 3.1 mg/dL Normal 2.6-4.[address] [facility] Comment on above: Performed By: #### C MP #### [facility] [address] [place] [address] Dr. Dwight Waters POTASSIUMon 06-06-2022 Potassium [Moles/Vol] 4.3 mmol/L Normal 3.5-5.[address] [facility] Comment on above: Performed By: #### C BC #### [facility] [address] [place] [place] [address] Dr. Dwight Waters SGOTon 06-06-2022 AST [Catalytic activity/Vol] 16 U/L Normal 15-[address] [facility] Comment on above: Performed By: #### C BC #### [facility] [address] [place] [place] [address] Dr. Dwight Waters SGPTon 06-06-2022 ALT [Catalytic activity/Vol] 50 U/L Normal 16-63 [facility] Comment on above: Performed By: #### C BC #### [facility] [address] [place] [place] [address] Dr. Dwight Waters Bacteria identified Cx Nom ( Bld)on 05-21-2022 Bacteria identified Cx Nom (Unsp spec) NO GROWTH DAY 5 OF 5 [facility] Results may be compr omised due to volume of BACT\ALERT bottle exceeding 10mLs . The optimal blood volume is 8-10 mls per aerobic/anaerobic blood culture bottle. [facility] CALCIUMon 05-20-2022 Calcium [Mass/Vol] 9.1 mg/dL 8.6 - 10. 5 mg/dL [facility] CBC,PLATELETSon 05-20-2022 Erythrocyte distribution width (RBC) [Ratio] 12.5 % 10.9 - 14.3 % [facility] Hematocrit (Bld) [Volume fraction] 37.1 % Low 39.6 - 48.8 % [facility] Hemoglobin (Bld) [Mass/Vol] 12.3 g/dL Low 13.4 - 16.8 g/dL [facility] Interpretation and review of laboratory results Abnormal [facility] MCH (RBC) [Entitic mass] 28.9 pg 26.1 - 33.3 pg [facility] MCHC (RBC) [Mass/Vol] 33.2 g/dL 31.9 - 36.5 g/dL [facility] MCV (RBC) [Entitic vol] 87.3 fL 79.0 - 94.5 fL [facility] Platelet mean volume (Bld) [Entitic vol] 9.9 fL 8.7 - 12.3 fL [facility] Platelets (Bld) [#/Vol] 234 10*3/uL 146 - 337 K/uL [facility] RBC (Bld) [#/Vol] 4.25 10*6/uL Low [facility] WBC (Bld) [#/Vol] 6.31 10*3/uL 3.73 - 10. 10 K/uL [facility] CHEM 7 (LYTES,BUN,CREA,GLUC) on 05-20-2022 Anion gap [Moles/Vol] 15 mmol/L 7 - 17 mmol/L [facility] Chloride [Moles/Vol] 111 mmol/L High 98 - 10 8 mmol/L [facility] CO2 [Moles/Vol] 22 mmol/L 21 - 31 mmol/L [facility] Creatinine [Mass/Vol] 1.10 mg/dL 0.70 - 1.30 mg/dL [facility] GFR/1.73 sq M.predicted CKD-EPI (S/P/Bld) [Vol rate/Area] 81 >=60 mL/min/1.73m 2 [facility] Comment on above: Reported eGFR is bas ed on the CKD-EPI 2020 equation using creatinine, age, and sex. Glucose [Mass/Vol] 92 mg/dL 70 - 99 mg/dL [facility] Interpretation and review of laboratory results Abnormal [facility] Osmolality Calc [Osmolality] 302 [facility] Potassium [Moles/Vol] 4.4 mmol/L 3.5 - 5.0 mmol/L [facility] Sodium [Moles/Vol] 144 mmol/L 135 - 145 [facility] Urea nitrogen [Mass/Vol] 18 mg/dL 7 - 25 mg/dL [facility] Urea nitrogen/Creatinine [Mass ratio] 16 mg[facility] MAGNESIUMon 05-20-2022 Interpretation and review of laboratory results Abnormal [facility] Magnesium [Mass/Vol] 1.5 mg/dL Low 1.6 - 2 .6 mg/dL [facility] No Panel Informationon 05-20 Interpretation and review of laboratory results Normal [facility] PHOSPHATE, INORGANICon 05-20 Phosphate [Mass/Vol] 3.3 mg/dL 2.2 - 4 .6 mg/dL [facility] RF Unspecified body region V iews during [...] projections of kidneys, ureters, and bladder. FINDINGS: Prosecuting Attorney images: Prosecuting Attorney radiographs of the abdomen reveal a nonobstructive [...] Contrast refluxes up the ureter to the [place] right kidney that is grossly normal [...] projections of kidneys, ureters, and bladder. FINDINGS: Prosecuting Attorney images: Prosecuting Attorney radiographs of the abdomen reveal a nonobstructive [...] Contrast refluxes up the ureter to the [place] right kidney that is grossly normal [...] reviewed and approved this report. [facility] Radiology Study observation (narrative) [facility] RF Unspecified body region V iews during surgeryOrdered By: Lizz Campos on 05-20-2022 [facility] Work Phone: CALCIUMon 05-19-2022 Calcium [Mass/Vol] 9.2 mg/dL 8.6 - 10. 5 mg/dL [facility] Calcium [Mass/Vol] 8.6 mg/dL 8.6 - 10. 5 mg/dL [facility] CBC,PLATELETSon 05-19-2022 Erythrocyte distribution width (RBC) [Ratio] 12.4 % 10.9 - 14.3 % [facility] Hematocrit (Bld) [Volume fraction] 38.0 % Low 39.6 - 48.8 % [facility] Hemoglobin (Bld) [Mass/Vol] 12.0 g/dL Low 13.4 - 16.8 g/dL [facility] Interpretation and review of laboratory results Abnormal [facility] MCH (RBC) [Entitic mass] 28.6 pg 26.1 - 33.3 pg [facility] MCHC (RBC) [Mass/Vol] 31.6 g/dL Low 31.9 - 36.5 g/dL [facility] MCV (RBC) [Entitic vol] 90.5 fL 79.0 - 94.5 fL [facility] Platelet mean volume (Bld) [Entitic vol] 9.7 fL 8.7 - 12.3 fL [facility] Platelets (Bld) [#/Vol] 199 10*3/uL 146 - 337 K/uL [facility] RBC (Bld) [#/Vol] 4.20 10*6/uL Low [facility] WBC (Bld) [#/Vol] 6.81 10*3/uL 3.73 - 10. 10 K/uL [facility] CHEM 7 (LYTES,BUN,CREA,GLUC) on 05-19-2022 Anion gap [Moles/Vol] 13 mmol/L 7 - 17 mmol/L [facility] Chloride [Moles/Vol] 105 mmol/L 98 - 10 8 mmol/L [facility] CO2 [Moles/Vol] 30 mmol/L 21 - 31 mmol/L [facility] Creatinine [Mass/Vol] 1.39 mg/dL High 0.70 - 1.30 mg/dL [facility] GFR/1.73 sq M.predicted CKD-EPI (S/P/Bld) [Vol rate/Area] 61 >=60 mL/min/1.73m 2 [facility] Comment on above: Reported eGFR is bas ed on the CKD-EPI 2020 equation using creatinine, age, and sex. Glucose [Mass/Vol] 121 mg/dL High 70 - 99 mg/dL [facility] Interpretation and review of laboratory results Abnormal [facility] Osmolality Calc [Osmolality] 303 [facility] Potassium [Moles/Vol] 3.8 mmol/L 3.5 - 5.0 mmol/L [facility] Sodium [Moles/Vol] 144 mmol/L 135 - 145 mmol/L [facility] Urea nitrogen [Mass/Vol] 18 mg/dL 7 - 25 mg/dL [facility] Urea nitrogen/Creatinine [Mass ratio] 13 mg/mg [facility] Anion gap [Moles/Vol] 15 mmol/L 7 - 17 mmol/L [facility] Chloride [Moles/Vol] 106 mmol/L 98 - 10 8 mmol/L [facility] CO2 [Moles/Vol] 24 mmol/L 21 - 31 mmol/L [facility] Creatinine [Mass/Vol] 1.46 mg/dL High 0.70 - 1.30 mg/dL [facility] GFR/1.73 sq M.predicted CKD-EPI (S/P/Bld) [Vol rate/Area] 58 Low >=60 mL/min/1.73m 2 [facility] Comment on above: Reported eGFR is bas ed on the CKD-EPI 2020 equation using creatinine, age, and sex. Glucose [Mass/Vol] 103 mg/dL High 70 - 99 mg/dL [facility] Interpretation and review of laboratory results Abnormal [facility] Osmolality Calc [Osmolality] 298 [facility] Potassium [Moles/Vol] 3.9 mmol/L 3.5 - 5.0 mmol/L [facility] Sodium [Moles/Vol] 141 mmol/L 135 - 145 mmol/L [facility] Urea nitrogen [Mass/Vol] 21 mg/dL 7 - 25 mg/dL [facility] Urea nitrogen/Creatinine [Mass ratio] 14 mg/mg [facility] MAGNESIUMon 05-19-2022 Magnesium [Mass/Vol] 2.0 mg/dL 1.6 - 2 .6 mg/dL [facility] Magnesium [Mass/Vol] 1.7 mg/dL 1.6 - 2 .6 mg/dL [facility] No Panel Informationon 05-19 Interpretation and review of laboratory results Normal [facility] Interpretation and review of laboratory results Normal [facility] PHOSPHATE, INORGANICon 05-19 Phosphate [Mass/Vol] 3.0 mg/dL 2.2 - 4 .6 mg/dL [facility] Phosphate [Mass/Vol] 2.7 mg/dL 2.2 - 4 .6 mg/dL [facility] CALCIUMon 05-18-2022 Calcium [Mass/Vol] 9.1 mg/dL 8.6 - 10. 5 mg/dL [facility] CBC,PLATELETSon 05-18-2022 Erythrocyte distribution width (RBC) [Ratio] 12.5 % 10.9 - 14.3 % [facility] Hematocrit (Bld) [Volume fraction] 37.3 % Low 39.6 - 48.8 % [facility] Hemoglobin (Bld) [Mass/Vol] 11.9 g/dL Low 13.4 - 16.8 g/dL [facility] Interpretation and review of laboratory results Abnormal [facility] MCH (RBC) [Entitic mass] 28.9 pg 26.1 - 33.3 pg [facility] MCHC (RBC) [Mass/Vol] 31.9 g/dL 31.9 - 36.5 g/dL [facility] MCV (RBC) [Entitic vol] 90.5 fL 79.0 - 94.5 fL [facility] Platelet mean volume (Bld) [Entitic vol] 10.1 fL 8.7 - 12.3 fL [facility] Platelets (Bld) [#/Vol] 189 10*3/uL 146 - 337 K/uL [facility] RBC (Bld) [#/Vol] 4.12 10*6/uL Low [facility] WBC (Bld) [#/Vol] 10.19 10*3/uL High 3.73 - 10 .10 K/uL [facility] CHEM 7 (LYTES,BUN,CREA,GLUC) on 05-18-2022 Anion gap [Moles/Vol] 13 mmol/L 7 - 17 mmol/L [facility] Chloride [Moles/Vol] 102 mmol/L 98 - 10 8 mmol/L [facility] CO2 [Moles/Vol] 26 mmol/L 21 - 31 mmol/L [facility] Creatinine [Mass/Vol] 1.91 mg/dL High 0.70 - 1.30 mg/dL [facility] GFR/1.73 sq M.predicted CKD-EPI (S/P/Bld) [Vol rate/Area] 42 Low >=60 mL/min/1.73m 2 [facility] Comment on above: Reported eGFR is bas ed on the CKD-EPI 2020 equation using creatinine, age, and sex. Glucose [Mass/Vol] 158 mg/dL High 70 - 99 mg/dL [facility] Osmolality Calc [Osmolality] 297 [facility] Potassium [Moles/Vol] 4.0 mmol/L 3.5 - 5.0 mmol/L [facility] Sodium [Moles/Vol] 137 mmol/L 135 - 145 mmol/L [facility] Urea nitrogen [Mass/Vol] 30 mg/dL High 7 - 25 mg/dL [facility] Urea nitrogen/Creatinine [Mass ratio] 16 mg/mg [facility] CHEM 7 (LYTES,BUN,CREA,GLUC) Ordered By: Tamiko Thapa on 05-18-2022 Anion gap [Moles/Vol] 13 mmol/L 7 - 17 mmol/L [facility] Chloride [Moles/Vol] 104 mmol/L 98 - 10 8 mmol/L [facility] CO2 [Moles/Vol] 26 mmol/L 21 - 31 mmol/L [facility] Creatinine [Mass/Vol] 2.96 mg/dL High 0.70 - 1.30 mg/dL [facility] GFR/1.73 sq M.predicted CKD-EPI (S/P/Bld) [Vol rate/Area] 25 Low >=60 mL/min/1.73m 2 [facility] Comment on above: Reported eGFR is bas ed on the CKD-EPI 2020 equation using creatinine, age, and sex. Glucose [Mass/Vol] 136 mg/dL High 70 - 99 mg/dL [facility] Interpretation and review of laboratory results Abnormal [facility] Osmolality Calc [Osmolality] 304 [facility] Potassium [Moles/Vol] 4.2 mmol/L 3.5 - 5.0 mmol/L [facility] Sodium [Moles/Vol] 139 mmol/L 135 - 145 mmol/L [facility] Urea nitrogen [Mass/Vol] 41 mg/dL High 7 - 25 mg/dL [facility] Urea nitrogen/Creatinine [Mass ratio] 14 mg/mg [facility] MAGNESIUMon 05-18-2022 Magnesium [Mass/Vol] 2.2 mg/dL 1.6 - 2 .6 mg/dL [facility] Interpretation and review of laboratory results Normal [facility] Magnesium [Mass/Vol] 1.7 mg/dL 1.6 - 2 .6 mg/dL [facility] No Panel Informationon 05-18 Interpretation and review of laboratory results Abnormal [facility] Interpretation and review of laboratory results Normal [facility] PHOSPHATE, INORGANICon 05-18 Phosphate [Mass/Vol] 2.0 mg/dL Low 2.2 - 4 .6 mg/dL [facility] Interpretation and review of laboratory results Normal [facility] Phosphate [Mass/Vol] 2.8 mg/dL 2.2 - 4 .6 mg/dL [facility] PT,INR,PTTon 05-18-2022 aPTT Coag (PPP) [Time] 31.0 s [facility] INR Coag (Bld) [Relative time] 1.1 {INR} [facility] Interpretation and review of laboratory results Abnormal [facility] PT Coag (PPP) [Time] 14.4 s High [facility] URINE CULTUREOrdered By: Sylvia Campos on 05-18-2022 Bacteria identified Cx Nom (Unsp spec) No Growth [facility] CBC,PLATELETSon 05-17-2022 Erythrocyte distribution width (RBC) [Ratio] 12.8 % 10.9 - 14.3 % [facility] Hematocrit (Bld) [Volume fraction] 42.8 % 39.6 - 48.8 % [facility] Hemoglobin (Bld) [Mass/Vol] 13.3 g/dL Low 13.4 - 16.8 g/dL [facility] Interpretation and review of laboratory results Abnormal [facility] MCH (RBC) [Entitic mass] 28.9 pg 26.1 - 33.3 pg [facility] MCHC (RBC) [Mass/Vol] 31.1 g/dL Low 31.9 - 36.5 g/dL [facility] MCV (RBC) [Entitic vol] 92.8 fL 79.0 - 94.5 fL [facility] Platelet mean volume (Bld) [Entitic vol] 10.3 fL 8.7 - 12.3 fL [facility] Platelets (Bld) [#/Vol] 188 10*3/uL 146 - 337 K/uL [facility] RBC (Bld) [#/Vol] 4.61 10*6/uL [facility] WBC (Bld) [#/Vol] 16.61 10*3/uL High 3.73 - 10 .10 K/uL [facility] CHEM 7 (LYTES,BUN,CREA,GLUC) Ordered By: Kaylah Mc on 05-17-2022 Anion gap [Moles/Vol] 15 mmol/L 7 - 17 mmol/L [facility] Chloride [Moles/Vol] 103 mmol/L 98 - 10 8 mmol/L [facility] CO2 [Moles/Vol] 23 mmol/L 21 - 31 mmol/L [facility] Creatinine [Mass/Vol] 5.95 mg/dL High 0.70 - 1.30 mg/dL [facility] GFR/1.73 sq M.predicted CKD-EPI (S/P/Bld) [Vol rate/Area] 11 Low >=60 mL/min/1.73m 2 [facility] Comment on above: Reported eGFR is bas ed on the CKD-EPI 2020 equation using creatinine, age, and sex. Glucose [Mass/Vol] 165 mg/dL High 70 - 99 mg/dL [facility] Interpretation and review of laboratory results Abnormal [facility] Osmolality Calc [Osmolality] 305 [facility] Potassium [Moles/Vol] 4.6 mmol/L 3.5 - 5.0 mmol/L [facility] Sodium [Moles/Vol] 136 mmol/L 135 - 145 mmol/L [facility] Urea nitrogen [Mass/Vol] 52 mg/dL High 7 - 25 mg/dL [facility] Urea nitrogen/Creatinine [Mass ratio] 9 mg/mg [facility] CHEM 7 (LYTES,BUN,CREA,GLUC) Ordered By: Kehinde Gutierrez on 05-17-2022 Anion gap [Moles/Vol] 24 mmol/L High 7 - 17 mmol/L [facility] Chloride [Moles/Vol] 100 mmol/L 98 - 10 8 mmol/L [facility] CO2 [Moles/Vol] 16 mmol/L Low 21 - 31 mmol/L [facility] Creatinine [Mass/Vol] 8.08 mg/dL High 0.70 - 1.30 mg/dL [facility] GFR/1.73 sq M.predicted CKD-EPI (S/P/Bld) [Vol rate/Area] 7 Low >=60 mL/min/1.73m 2 [facility] Comment on above: Reported eGFR is bas ed on the CKD-EPI 2020 equation using creatinine, age, and sex. Glucose [Mass/Vol] 164 mg/dL High 70 - 99 mg/dL [facility] Interpretation and review of laboratory results Abnormal [facility] Osmolality Calc [Osmolality] 305 [facility] Potassium [Moles/Vol] 5.0 mmol/L 3.5 - 5.0 mmol/L [facility] Sodium [Moles/Vol] 135 mmol/L 135 - 145 mmol/L [facility] Urea nitrogen [Mass/Vol] 56 mg/dL High 7 - 25 mg/dL [facility] Urea nitrogen/Creatinine [Mass ratio] 7 mg/mg [facility] LAVENDER TOP TUBEon 05-17-20 [facility] MAGNESIUMon 05-17-2022 Interpretation and review of laboratory results Normal [facility] Magnesium [Mass/Vol] 1.8 mg/dL 1.6 - 2 .6 mg/dL [facility] Interpretation and review of laboratory results Normal [facility] Magnesium [Mass/Vol] 1.6 mg/dL 1.6 - 2 .6 mg/dL [facility] No Panel Informationon 05-17 [facility] PHOSPHATE, INORGANICon 05-17 Interpretation and review of laboratory results Abnormal [facility] Phosphate [Mass/Vol] 4.9 mg/dL High 2.2 - 4 .6 mg/dL [facility] PT,INR,PTTon 05-17-2022 aPTT Coag (PPP) [Time] 33.0 s [facility] INR Coag (Bld) [Relative time] 1.3 {INR} High [facility] Interpretation and review of laboratory results Abnormal [facility] PT Coag (PPP) [Time] 15.7 s High [facility] Portable XR Chest Viewson IMPRESSION: [...] IMPRESSION IMPRESSION: No acute findings. [facility] Radiology Study observation (narrative) [facility] Portable XR Chest ViewsOrder ed By: David Sanz on 05-17-2022 [facility] Work Phone: URINALYSISOrdered By: Michael patel Ma on 05-17-2022 Appearance (U) Cloudy Abnormal Clear [facility] Comment on above: Results may be inacc urate due to color interference. Clinical correlation recommended. Bacteria LM Ql (Urine sed) ABSENT ABSENT [facility] Color (U) Red Abnormal Yellow [facility] Comment on above: Results may be inacc urate due to color interference. Clinical correlation recommended. Epithelial cells.squamous LM Ql (Urine sed) ABSENT 1/hpf = 1+, 2-5/hpf = 2+, 0/hpf = 0+, ABSENT [facility] Glucose Test strip (U) [Mass/Vol] Negative Negative [facility] Comment on above: Results may be inacc urate due to color interference. Clinical correlation recommended. Interpretation and review of laboratory results Abnormal [facility] Ketones (U) [Mass/Vol] Trace Abnormal Negative [facility] Comment on above: Results may be inacc urate due to color interference. Clinical correlation recommended. Leukocyte esterase Test strip Ql (U) Large Abnormal Negative [facility] Comment on above: Results may be inacc urate due to color interference. Clinical correlation recommended. Nitrite Ql (U) Negative Negative [facility] Comment on above: Results may be inacc urate due to color interference. Clinical correlation recommended. pH (U) 5.0 [pH] 5.0 - 7.0 [facility] Comment on above: Results may be inacc urate due to color interference. Clinical correlation recommended. Protein (U) [Mass/Vol] mg/dL Abnormal Negative [facility] Comment on above: Results may be inacc urate due to color interference. Clinical correlation recommended. RBC (U) [#/Vol] Large Abnormal Negative [facility] Comment on above: Results may be inacc urate due to color interference. Clinical correlation recommended. RBC LM.HPF (Urine sed) [#/Area] /[HPF] Abnormal 0 - 2 /HPF [facility] Specific gravity (U) [Rel density] 1.016 [facility] Comment on above: Results may be inacc urate due to color interference. Clinical correlation recommended. Urobilinogen (U) [Mass/Vol] 0.2 E.U./dL 0.2 E.U/dL, 1.0 E.U/dL [facility] Comment on above: Results may be inacc urate due to color interference. Clinical correlation recommended. WBC LM.HPF (Urine sed) [#/Area] /[HPF] Abnormal 0 - 5 /HPF [facility] URINE CULTUREOrdered By: Tyler Tiwari on 05-17-2022 Bacteria identified Cx Nom (Unsp spec) No Growth [facility] CBC,PLATELETSon 05-16-2022 Erythrocyte distribution width (RBC) [Ratio] 12.9 % 10.9 - 14.3 % [facility] Hematocrit (Bld) [Volume fraction] 46.5 % 39.6 - 48.8 % [facility] Hemoglobin (Bld) [Mass/Vol] 14.7 g/dL 13.4 - 16.8 g/dL [facility] Interpretation and review of laboratory results Abnormal [facility] MCH (RBC) [Entitic mass] 28.3 pg 26.1 - 33.3 pg [facility] MCHC (RBC) [Mass/Vol] 31.6 g/dL Low 31.9 - 36.5 g/dL [facility] MCV (RBC) [Entitic vol] 89.6 fL 79.0 - 94.5 fL [facility] Platelet mean volume (Bld) [Entitic vol] 10.3 fL 8.7 - 12.3 fL [facility] Platelets (Bld) [#/Vol] 188 10*3/uL 146 - 337 K/uL [facility] RBC (Bld) [#/Vol] 5.19 10*6/uL [facility] WBC (Bld) [#/Vol] 12.55 10*3/uL High 3.73 - 10 .10 K/uL [facility] CHEM 7 (LYTES,BUN,CREA,GLUC) Ordered By: Alma Pena on 05-16-2022 Anion gap [Moles/Vol] 14 mmol/L 7 - 17 mmol/L [facility] Chloride [Moles/Vol] 103 mmol/L 98 - 10 8 mmol/L [facility] CO2 [Moles/Vol] 22 mmol/L 21 - 31 mmol/L [facility] Creatinine [Mass/Vol] 6.09 mg/dL High 0.70 - 1.30 mg/dL [facility] GFR/1.73 sq M.predicted CKD-EPI (S/P/Bld) [Vol rate/Area] 10 Low >=60 mL/min/1.73m 2 [facility] Comment on above: Reported eGFR is bas ed on the CKD-EPI 2021 equation using creatinine, age, and sex. Glucose [Mass/Vol] 134 mg/dL High 70 - 99 mg/dL [facility] Interpretation and review of laboratory results Abnormal [facility] Osmolality Calc [Osmolality] 298 [facility] Potassium [Moles/Vol] 4.9 mmol/L 3.5 - 5.0 mmol/L [facility] Sodium [Moles/Vol] 134 mmol/L Low 135 - 145 mmol/L [facility] Comment on above: Results inconsistent with previous results Urea nitrogen [Mass/Vol] 49 mg/dL High 7 - 25 mg/dL [facility] Urea nitrogen/Creatinine [Mass ratio] 8 mg/mg [facility] CHEM 7 (LYTES,BUN,CREA,GLUC) on 05-16-2022 Anion gap [Moles/Vol] 17 mmol/L 7 - 17 mmol/L [facility] Chloride [Moles/Vol] 106 mmol/L 98 - 10 8 mmol/L [facility] CO2 [Moles/Vol] 22 mmol/L 21 - 31 mmol/L [facility] Creatinine [Mass/Vol] 5.23 mg/dL High 0.70 - 1.30 mg/dL [facility] GFR/1.73 sq M.predicted CKD-EPI (S/P/Bld) [Vol rate/Area] 13 Low >=60 mL/min/1.73m 2 [facility] Comment on above: Reported eGFR is bas ed on the CKD-EPI 2021 equation using creatinine, age, and sex. Glucose [Mass/Vol] 116 mg/dL High 70 - 99 mg/dL [facility] Interpretation and review of laboratory results Abnormal [facility] Osmolality Calc [Osmolality] 305 [facility] Potassium [Moles/Vol] 4.6 mmol/L 3.5 - 5.0 mmol/L [facility] Sodium [Moles/Vol] 140 mmol/L 135 - 145 mmol/L [facility] Urea nitrogen [Mass/Vol] 42 mg/dL High 7 - 25 mg/dL [facility] Urea nitrogen/Creatinine [Mass ratio] 8 mg/mg [facility] EXTRA MICROon 05-16-2022 [facility] LT BLUE TOP TUBEon 2 [facility] LYTES (NA, K, CL) - URINE - RANDOMon 05-16-2022 Chloride (24H U) [Moles/Vol] 68 mmol/L [facility] Potassium (24H U) [Moles/Vol] 36.7 mmol/L [facility] Sodium (24H U) [Moles/Vol] 55 mmol/L [facility] The reference range has not been established for random urine specimens. The test result should be integrated into the clinical context for interpretation. [facility] MAGNESIUMon 05-16-2022 Interpretation and review of laboratory results Normal [facility] Magnesium [Mass/Vol] 1.7 mg/dL 1.6 - 2 .6 mg/dL [facility] NOVEL CORONAVIRUS PCROrdered By: Edson Candelario on 05-16-2022 SARS-CoV-2 (COVID-19) RNA ESTELITA+probe Ql (Unsp spec) Not detected NOT DETECTED [facility] Comment on above: [facility] Negative results do [...] for use by authorized laboratories. [facility] No Panel Informationon 05-16 [facility] OSMOLALITY, URINEon 05-16-20 Interpretation and review of laboratory results Normal [facility] Osmolality (U) [Osmolality] 320 mosm/kg [facility] The reference range has not been established for random urine specimens. The test result should be integrated into the clinical context for interpretation. [facility] PROCALCITONINon 05-16-2022 Interpretation and review of laboratory results Normal [facility] Procalcitonin [Mass/Vol] 0.18 ng/mL <0.50 [facility] Comment on above: Procalcitonin is an FDA-approved assay to help manage antibiotic treatment in patients with sepsis/septic shock and lower respiratory tract infections. Specifically, trending procalcitonin in these situations can be used to reduce the duration of antibiotics. Please refer to the Procalcitonin Guide on the Antimicrobial [employer]wardship Webpage for more guidance on how to use and trend procalcitonin in various clinical settings. [email or web address]=[email or web address] Two common cutoffs associated with bacterial infections are as follows. Respiratory tract infections: >0.25 ng/mL Sepsis/septic shock: >0.5 ng/mL Procalcitonin should not be used alone as a diagnostic tool, however. All procalcitonin results should be interpreted in association with the patients clinical condition and all laboratory findings. [facility] PT,INR,PTTon 05-16-2022 aPTT Coag (PPP) [Time] 30.3 s [facility] INR Coag (Bld) [Relative time] 1.1 {INR} [facility] Interpretation and review of laboratory results Normal [facility] PT Coag (PPP) [Time] 14.1 s [facility] SARS-CoV-2 (COVID-19) RNA NA A+probe Ql (Unsp spec)Ordered By: Edson Candelario on 05-16-2022 Interpretation and review of laboratory results Normal [facility] TACROLIMUS LEVEL, TROUGH (DE E DRUG LEVEL)Ordered By: Mariama Nick on 05-16-2022 Interpretation and review of laboratory results Normal [facility] Tacrolimus (Bld) [Mass/Vol] 4.1 ng/mL Bone Marrow Transplant: 4.0-12.0, Therapeutic: 5.0-15.0 [facility] Method performed is a chemiluminescent microparticle immunoasssay on the [employer] Implementation [employer] i2000. The range is based on experience at [facility] and users should be aware that target concentrations vary widely depending on concomitant therapy, time post-transplant, and desired degree of immunosuppression. [facility] URINE PROTEIN/CREA RATIO, RA ARPITOMon 05-16-2022 Creatinine (24H U) [Mass/Vol] 59.82 mg/dL [facility] Protein Unsp time (U) [Mass/Vol] 111 mg/dL [facility] Protein/Creatinine (U) [Mass ratio] 1.856 mg/g [facility] US for transplanted kidney l imitedon 05-16-2022 [...] flow in the transplant kidney. [facility] Radiology Study observation (narrative) [facility] US for transplanted kidney l imitedOrdered By: Rosendo Matute on 05-16-2022 [facility] Work Phone: CBC AND ELECTRONIC DIFFon Basophils (Bld) [#/Vol] 10*3/uL 0.00 - 0.09 K/uL [facility] Basophils/100 WBC (Bld) 0.2 % [facility] Differential cell count method Nom (Bld) Electronic Differential [facility] Eosinophils (Bld) [#/Vol] 10*3/uL 0.00 - 0.48 K/uL [facility] Eosinophils/100 WBC (Bld) 0.0 % [facility] Erythrocyte distribution width (RBC) [Ratio] 12.8 % 10.9 - 14.3 % [facility] Hematocrit (Bld) [Volume fraction] 46.0 % 39.6 - 48.8 % [facility] Hemoglobin (Bld) [Mass/Vol] 14.6 g/dL 13.4 - 16.8 g/dL [facility] Immature granulocytes (Bld) [#/Vol] 0.07 10*3/uL <=0.08 [facility] Immature granulocytes/100 WBC (Bld) 0.4 % [facility] Interpretation and review of laboratory results Abnormal [facility] Lymphocytes (Bld) [#/Vol] 1.49 10*3/uL 0.83 - 3.57 K/uL [facility] Lymphocytes/100 WBC (Bld) 9.4 % [facility] MCH (RBC) [Entitic mass] 28.2 pg 26.1 - 33.3 pg [facility] MCHC (RBC) [Mass/Vol] 31.7 g/dL Low 31.9 - 36.5 g/dL [facility] MCV (RBC) [Entitic vol] 89.0 fL 79.0 - 94.5 fL [facility] Monocytes (Bld) [#/Vol] 1.45 10*3/uL High 0.24 - 0.93 K/uL [facility] Monocytes/100 WBC (Bld) 9.2 % [facility] Neutrophils (Bld) [#/Vol] 12.77 10*3/uL High 1.57 - 6.19 K/uL [facility] Nucleated RBC/100 WBC (Bld) [Ratio] 0.0 % <=0.2 /100 WBC [facility] for [facility] Platelet mean volume (Bld) [Entitic vol] 9.9 fL 8.7 - 12.3 fL [facility] Platelets (Bld) [#/Vol] 250 10*3/uL 146 - 337 K/uL [facility] RBC (Bld) [#/Vol] 5.17 10*6/uL [facility] Segmented neutrophils/100 WBC (Bld) 80.8 % [facility] WBC (Bld) [#/Vol] 15.81 10*3/uL High 3.73 - 10 .10 K/uL [facility] CBC AUTO DIFFon 05-15-2022 BASO # 0.0 103/ul Normal 0.0-0.[address] [facility] Comment on above: Performed By: #### C BC #### [facility] [address] [place] [address] Dr. Dwight Waters Basophils/100 WBC (Bld) 0.3 % Normal 0.2-2.[address] [facility] Comment on above: Performed By: #### C BC #### [facility] [address] [place] [address] Dr. Dwight Waters EO # 0.1 103/ul Normal 0.0-0.7 [facility] Comment on above: Performed By: #### C BC #### [facility] [address] [place] [address] Dr. Dwight Waters Eosinophils/100 WBC (Bld) 0.8 % Critically low 0.9-7.[address] [facility] Comment on above: Performed By: #### C BC #### [facility] [address] [place] [place] [address] Dr. Dwight Waters Erythrocyte distribution width (RBC) [Ratio] 12.7 % Normal 11.0-15.[address] [facility] Comment on above: Performed By: #### C BC #### [facility] [address] [place] [place] [address] Dr. Dwight Waters Hematocrit (Bld) [Volume fraction] 43.5 % Normal 42.0-54.[address] [facility] Comment on above: Performed By: #### C BC #### [facility] [address] [place] [place] [address] Dr. Dwight Waters Hemoglobin (Bld) [Mass/Vol] 14.4 g/dL Normal 14.0-18.0 [facility] Comment on above: Performed By: #### C BC #### [facility] [address] [place] [place] [address] Dr. Dwight Waters IG # 0.02 10e3/ul Normal 0.00-0.[address] [facility] Comment on above: Performed By: #### C BC #### [facility] [address] [place] [place] [address] Dr. Dwight Waters IG % 0.2 % Normal 0.0-0.[address] [facility] Comment on above: Performed By: #### C BC #### [facility] [address] [place] [place] [address] Dr. Dwight Waters LYMPH # 1.5 103/ul Normal 1.2-3.[address] [facility] Comment on above: Performed By: #### C BC #### [facility] [address] [place] [place] [address] Dr. Dwight Waters Lymphocytes/100 WBC (Bld) 12.5 % Critically low 20.5-60.[address] [facility] Comment on above: Performed By: #### C BC #### [facility] [address] [place] [place] [address] Dr. Dwight Waters MANUAL DIFF REQ NO Normal [facility] Comment on above: Performed By: #### C BC #### [facility] [address] [place] [place] [address] Dr. Dwight Waters MCH (RBC) [Entitic mass] 28.6 pg Normal 25.9-34.[address] [facility] Comment on above: Performed By: #### C BC #### [facility] [address] [place] [place] [address] Dr. Dwight Waters MCHC (RBC) [Mass/Vol] 33.1 g/dL Normal 29.9-35.[address] [facility] Comment on above: Performed By: #### C BC #### [facility] [address] [place] [place] [address] Dr. Dwight Waters MCV (RBC) [Entitic vol] 86.3 fL Normal 80.0-94.[address] [facility] Comment on above: Performed By: #### C BC #### [facility] [address] [place] [place] [address] Dr. Dwight Waters MONO # 1.0 103/ul Critically high 0.3-0.[address] [facility] Comment on above: Performed By: #### C BC #### [facility] [address] [place] [place] [address] Dr. Dwight Waters Monocytes/100 WBC (Bld) 8.2 % Normal 1.7-12.[address] [facility] Comment on above: Performed By: #### C BC #### [facility] [address] [address] [address] Dwight Waters NEUT # 9.1 103/ul Critically high 1.4-6.[address] [facility] Comment on above: Performed By: #### C BC #### [facility] [address] [address] [address] Dwight Waters Neutrophils/100 WBC (Bld) 78.0 % Critically high 43.0-75.[address] [facility] Comment on above: Performed By: #### C BC #### [facility] [address] [address] [address] Dwight Waters Platelet mean volume (Bld) [Entitic vol] 9.8 fL Normal 9.5-13.[address] [facility] Comment on above: Performed By: #### C BC #### [facility] [address] [place] [place] [address] Dr. Dwight Waters PLT 251 103/ul Normal 150-450 [facility] Comment on above: Performed By: #### C BC #### [facility] [address] [address] [address] Dwight Waters RBC 5.04 106/ul Normal 4.70-6.10 [facility] Comment on above: Performed By: #### C BC #### [facility] [address] [address] [address] Dwight Waters WBC 11.6 103/ul Critically high 4.0-11.[address] [facility] Comment on above: Performed By: #### C BC #### [facility] [address] [place] [place] [address] Dr. Dwight Waters CHEM 6 (LYTES, BUN CREA)on 0 05-15-2022 Anion gap [Moles/Vol] 12 mmol/L 7 - 17 mmol/L [facility] Chloride [Moles/Vol] 105 mmol/L 98 - 10 8 mmol/L [facility] CO2 [Moles/Vol] 26 mmol/L 21 - 31 mmol/L [facility] Creatinine [Mass/Vol] 2.85 mg/dL High 0.70 - 1.30 mg/dL [facility] GFR/1.73 sq M.predicted CKD-EPI (S/P/Bld) [Vol rate/Area] 26 Low >=60 mL/min/1.73m 2 [facility] Comment on above: Reported eGFR is bas ed on the CKD-EPI 2020 equation using creatinine, age, and sex. Potassium [Moles/Vol] 4.6 mmol/L 3.5 - 5.0 mmol/L [facility] Sodium [Moles/Vol] 138 mmol/L 135 - 145 mmol/L [facility] Urea nitrogen [Mass/Vol] 32 mg/dL High 7 - 25 mg/dL [facility] Urea nitrogen/Creatinine [Mass ratio] 11 mg/mg [facility] CT ABD/PELVIS WO CONon 05-15 [...] transplanted kidney with moderate right-sided hydronephrosis. Atrophic [place] kidneys with moderate right-sided hydronephrosis. Multiple [...] transplanted kidney with moderate right-sided hydronephrosis. Atrophic [place] kidneys with moderate right-sided hydronephrosis. Multiple nonobstructive right renal calculi measuring up to 8 mm. FOLLOW-UP: Follow-up as clinically indicated. Electronically authenticated by: LYNDSAY JEAN Date: 2022-05-15 05:04 Normal [facility] Covid-19 PCR (CVDTB)on 04-30 SARS-CoV-2 (COVID-19) [...] for this test is supported by the [place] [employer] and Human Service's declaration that [...] U RTPCR #### [facility] [address] [place] [address] Dr. Dwight Waters GLUCOSEon 05-15-2022 Glucose [Mass/Vol] 141 mg/dL High 70 - 99 mg/dL [facility] GOLD TOP TUBEon 05-15-2022 [facility] HE[facility]IC FUNCTION PANELon Albumin [Mass/Vol] 4.3 g/dL 3.5 - 5.0 g/dL [facility] ALP [Catalytic activity/Vol] 85 U/L 32 - 126 U/L [facility] ALT [Catalytic activity/Vol] 13 U/L 10 - 52 U/L [facility] AST [Catalytic activity/Vol] 15 U/L 10 - 39 U/L [facility] Bilirubin [Mass/Vol] 0.8 mg/dL <1.5 [facility] Bilirubin.direct [Mass/Vol] 0.2 mg/dL <0.3 [facility] Interpretation and review of laboratory results Normal [facility] Protein [Mass/Vol] 7.3 g/dL 6.4 - 8.3 g/dL [facility] LIPASEon 05-15-2022 Lipase [Catalytic activity/Vol] 8 U/L Low 11 - 82 U/L [facility] No Panel Informationon 05-15 Interpretation and review of laboratory results Abnormal [facility] PROF 14(COMP METB)on 022 Albumin [Mass/Vol] 3.8 g/dL Normal 3.4-5.[address] [facility] Comment on above: Performed By: #### U RTPCR #### [facility] [address] [place] [place] [address] Dr. Dwight Waters Albumin/Globulin [Mass ratio] 1.1 {ratio} Normal [facility] Comment on above: Performed By: #### U RTPCR #### [facility] [address] [place] [place] [address] Dr. Dwight Waters ALP [Catalytic activity/Vol] 92 U/L Normal 46-[address] [facility] Comment on above: Performed By: #### U RTPCR #### [facility] [address] [place] [place] [address] Dr. Dwight Waters ALT [Catalytic activity/Vol] 25 U/L Normal 16-63 [facility] Comment on above: Performed By: #### U RTPCR #### [facility] [address] [address] [address] Dwight Waters Anion gap [Moles/Vol] 14.6 mmol/L Normal [facility] Comment on above: Performed By: #### U RTPCR #### [facility] [address] [address] [address] Dwight Waters AST [Catalytic activity/Vol] 17 U/L Normal 15-[address] [facility] Comment on above: Performed By: #### U RTPCR #### [facility] [address] [address] [address] Dwight Waters Bilirubin [Mass/Vol] 0.6 mg/dL Normal 0.2-1.[address] [facility] Comment on above: Performed By: #### U RTPCR #### [facility] [address] [address] [address] Dwight Waters Calcium [Mass/Vol] 9.9 mg/dL Normal 8.5-10.1 [facility] Comment on above: Performed By: #### U RTPCR #### [facility] [address] [address] [address] Dwight Waters Chloride [Moles/Vol] 106 mmol/L Normal 98-107 [facility] Comment on above: Performed By: #### U RTPCR #### [facility] [address] [place] [place] [address] Dr. Dwight Waters CO2 [Moles/Vol] 24.2 mmol/L Normal 21.0-32.[address] [facility] Comment on above: Performed By: #### U RTPCR #### [facility] [address] [address] [address] Dwight Waters Creatinine [Mass/Vol] 1.58 mg/dL Critically high 0.70-1.[address] [facility] Comment on above: Performed By: #### U RTPCR #### [facility] [address] [place] [place] [address] Dr. Dwight Waters EGFR-AF AUSTRALIAN 56 mL/min/1.73m2 Critically low >=60 [facility] Comment on above: Performed By: #### U RTPCR #### [facility] [address] [address] [address] Dwight Waters EGFR-NON AF [place]IAN 46 mL/min/1.73m2 Critically low >=60 [facility] Comment on above: Performed By: #### U RTPCR #### [facility] [address] [address] [address] Dwight Waters Globulin (S) [Mass/Vol] 3.5 g/dL Normal [facility] Comment on above: Performed By: #### U RTPCR #### [facility] [address] [address] [address] Dwight Waters Glucose [Mass/Vol] 162 mg/dL Critically high 74-106 [facility] Comment on above: Performed By: #### U RTPCR #### [facility] [address] [address] [address] Dwight Waters Potassium [Moles/Vol] 3.8 mmol/L Normal 3.5-5.[address] [facility] Comment on above: Performed By: #### U RTPCR #### [facility] [address] [address] [address] Dwight Waters Protein [Mass/Vol] 7.3 g/dL Normal 6.4-8.[address] [facility] Comment on above: Performed By: #### U RTPCR #### [facility] [address] [place] [place] [address] Dr. Dwight Waters Sodium [Moles/Vol] 141 mmol/L Normal 136-[address] [facility] Comment on above: Performed By: #### U RTPCR #### [facility] [address] [address] [address] Dwight Waters Urea nitrogen [Mass/Vol] 22.0 mg/dL Critically high 7.0-18.[address] [facility] Comment on above: Performed By: #### U RTPCR #### [facility] [address] [place] [place] [address] Dr. Dwight Waters Urea nitrogen/Creatinine [Mass ratio] 13.9 mg/mg Normal [facility] Comment on above: Performed By: #### U RTPCR #### [facility] [address] [address] [address] Dwight Waters Portable XR Chest Viewson [...] IMPRESSION: No acute cardiopulmonary disease [facility] Radiology Study observation (narrative) [facility] Portable XR Chest ViewsOrder ed By: Vladislav Omer on 05-15-2022 [facility] URINE DIPSTICK; REFLEX MICRO SCOPY; REFLEX CULTURE PERFORMABLEon 05-15-2022 Appearance (U) Clear Clear [facility] Color (U) Yellow Yellow [facility] Glucose Test strip (U) [Mass/Vol] 100 mg/dL Abnormal Negative [facility] Interpretation and review of laboratory results Abnormal [facility] Ketones (U) [Mass/Vol] Negative Negative [facility] Leukocyte esterase Test strip Ql (U) Large Abnormal Negative [facility] Nitrite Ql (U) Negative Negative [facility] pH (U) 6.0 [pH] 5.0 - 7.0 [facility] Protein (U) [Mass/Vol] 100 mg/dL Abnormal Negative [facility] RBC (U) [#/Vol] Large Abnormal Negative [facility] Specific gravity (U) [Rel density] 1.010 [facility] Urobilinogen (U) [Mass/Vol] 0.2 E.U./dL 0.2 E.U/dL, 1.0 E.U/dL [facility] URINE MICROSCOPIC WITH REFLE X TO CULTUREOrdered By: Rey Bro on 05-15-2022 Bacteria LM Ql (Urine sed) ABSENT ABSENT [facility] Epithelial cells.squamous LM Ql (Urine sed) ABSENT 1/hpf = 1+, 2-5/hpf = 2+, 0/hpf = 0+, ABSENT [facility] Interpretation and review of laboratory results Abnormal [facility] RBC LM.HPF (Urine sed) [#/Area] /[HPF] Abnormal 0 - 2 /HPF [facility] WBC LM.HPF (Urine sed) [#/Area] 10-20 Abnormal 0 - 5 /HPF [facility] CT ABD/PELVIS WO CONon 05-12 CT ABD/PELVIS WO CON Begin Addendum #[address] Lund 3:25 PM EST 05/11/2022. Begin Addendum #2 IMPRESSION below should also contain the followin. 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 The [place] kidneys are progressively atrophic bilaterally compared [...] of 06/14/2020 are no longer present. The [place] distal right ureter is decompressed beyond [...] with surgical history for renal graft and [place] right urinary drainage, as a discrete ureteroneocystostomy is not identified, and the graft may be draining via a ureteroureterostomy. Urology consultation recommended. 3. The [place] kidneys are bilaterally atrophic, with right renal sinus calcifications consistent with nonobstructing right [place] renal calculi up to 6 mm. Normal [facility] CBC AUTO DIFFon 05-11-2022 BASO # 0.1 103/ul Normal 0.0-0.[address] [facility] Comment on above: Performed By: #### U RTPCR #### [facility] [address] [address] [address] Dwight Waters Basophils/100 WBC (Bld) 0.8 % Normal 0.2-2.[address] [facility] Comment on above: Performed By: #### U RTPCR #### [facility] [address] [place] [place] [address] Dr. Dwight Waters EO # 0.2 103/ul Normal 0.0-0.[address] [facility] Comment on above: Performed By: #### U RTPCR #### [facility] [address] [place] [place] [address] Dr. Dwight Waters Eosinophils/100 WBC (Bld) 2.5 % Normal 0.9-7.[address] [facility] Comment on above: Performed By: #### U RTPCR #### [facility] [address] [place] [place] [address] Dr. Dwight Waters Erythrocyte distribution width (RBC) [Ratio] 12.5 % Normal 11.0-15.[address] [facility] Comment on above: Performed By: #### U RTPCR #### [facility] [address] [place] [place] [address] Dr. Dwight Waters Hematocrit (Bld) [Volume fraction] 48.3 % Normal 42.0-54.[address] [facility] Comment on above: Performed By: #### U RTPCR #### [facility] [address] [place] [place] [address] Dr. Dwight Waters Hemoglobin (Bld) [Mass/Vol] 15.3 g/dL Normal 14.0-18.[address] [facility] Comment on above: Performed By: #### U RTPCR #### [facility] [address] [place] [place] [address] Dr. Dwight Waters IG # 0.01 10e3/ul Normal 0.00-0.[address] [facility] Comment on above: Performed By: #### U RTPCR #### [facility] [address] [place] [place] [address] Dr. Dwight Waters IG % 0.2 % Normal 0.0-0.[address] [facility] Comment on above: Performed By: #### U RTPCR #### [facility] [address] [place] [place] [address] Dr. Dwight Waters LYMPH # 1.9 103/ul Normal 1.2-3.8 [facility] Comment on above: Performed By: #### U RTPCR #### [facility] [address] [place] [place] [address] Dr. Dwight Waters Lymphocytes/100 WBC (Bld) 29.8 % Normal 20.5-60.[address] [facility] Comment on above: Performed By: #### U RTPCR #### [facility] [address] [place] [place] [address] Dr. Dwight Waters MANUAL DIFF REQ NO Normal [facility] Comment on above: Performed By: #### U RTPCR #### [facility] [address] [place] [place] [address] Dr. Dwight Waters MCH (RBC) [Entitic mass] 28.2 pg Normal 25.9-34.[address] [facility] Comment on above: Performed By: #### U RTPCR #### [facility] [address] [place] [place] [address] Dr. Dwight Waters MCHC (RBC) [Mass/Vol] 31.7 g/dL Normal 29.9-35.[address] [facility] Comment on above: Performed By: #### U RTPCR #### [facility] [address] [place] [place] [address] Dr. Dwight Waters MCV (RBC) [Entitic vol] 89.1 fL Normal 80.0-94.[address] [facility] Comment on above: Performed By: #### U RTPCR #### [facility] [address] [place] [place] [address] Dr. Dwight Waters MONO # 0.6 103/ul Normal 0.3-0.[address] [facility] Comment on above: Performed By: #### U RTPCR #### [facility] [address] [place] [place] [address] Dr. Dwight Waters Monocytes/100 WBC (Bld) 9.0 % Normal 1.7-12.0 [facility] Comment on above: Performed By: #### U RTPCR #### [facility] [address] [place] [place] [address] Dr. Dwight Waters NEUT # 3.6 103/ul Normal 1.4-6.5 [facility] Comment on above: Performed By: #### U RTPCR #### [facility] [address] [place] [place] [address] Dr. Dwight Waters Neutrophils/100 WBC (Bld) 57.7 % Normal 43.0-75.[address] [facility] Comment on above: Performed By: #### U RTPCR #### [facility] [address] [place] [place] [address] Dr. Dwight Waters Platelet mean volume (Bld) [Entitic vol] 9.9 fL Normal 9.5-13.[address] [facility] Comment on above: Performed By: #### U RTPCR #### [facility] [address] [place] [place] [address] Dr. Dwight Waters PLT 249 103/ul Normal 150-[address] [facility] Comment on above: Performed By: #### U RTPCR #### [facility] [address] [place] [place] [address] Dr. Dwight Waters RBC 5.42 106/ul Normal 4.70-6.10 [facility] Comment on above: Performed By: #### U RTPCR #### [facility] [address] [place] [place] [address] Dr. Dwight Waters WBC 6.3 103/ul Normal 4.0-11.0 [facility] Comment on above: Performed By: #### U RTPCR #### [facility] [address] [place] [address] Dr. Dwight Waters ER URINE PROFILEon 2 Bilirubin Ql (U) Unable to perform te sting due to color interference. Abnormal NEGATIVE [facility] Comment on above: Performed By: #### U RTPCR #### [facility] [address] [place] [address] Dr. Dwight Waters Clarity (U) TURBID Abnormal CLEAR [facility] Comment on above: Performed By: #### U RTPCR #### [facility] [address] [place] [place] [address] Dr. Dwight Waters Color (U) RED Abnormal YELLOW [facility] Comment on above: Performed By: #### U RTPCR #### [facility] [address] [place] [address] Dr. Dwight SHARMA A micrscopic examina tion will be performed if indicated. Normal [facility] Comment on above: Performed By: #### U RTPCR #### [facility] [address] [place] [address] Dr. Dwight Waters Glucose Ql (U) Unable to perform te sting due to color interference. Abnormal NEGATIVE [facility] Comment on above: Performed By: #### U RTPCR #### [facility] [address] [place] [place] [address] Dr. Dwight Waters Hemoglobin Ql (U) Unable to perform te sting due to color interference. Abnormal NEGATIVE [facility] Comment on above: Performed By: #### U RTPCR #### [facility] [address] [place] [address] Dr. Dwight Waters Ketones Ql (U) Unable to perform te sting due to color interference. Abnormal NEGATIVE [facility] Comment on above: Performed By: #### U RTPCR #### [facility] [address] [place] [address] Dr. Dwight Waters LEUKOCYTES Unable to perform te sting due to color interference. Abnormal NEGATIVE [facility] Comment on above: Performed By: #### U RTPCR #### [facility] [address] [place] [address] Dr. Dwight Waters Nitrite Ql (U) Unable to perform te sting due to color interference. Abnormal NEGATIVE [facility] Comment on above: Performed By: #### U RTPCR #### [facility] [address] [place] [place] [address] Dr. Dwight Waters pH (U) 6.5 [pH] Normal 5-[address] [facility] Comment on above: Performed By: #### U RTPCR #### [facility] [address] [place] [address] Dr. Dwight Waters SPEC GRAVITY 1.020 Normal 1.005-<=1.[address] [facility] Comment on above: Performed By: #### U RTPCR #### [facility] [address] [place] [place] [address] Dr. Dwight Waters UA PROTEIN Unable to perform te sting due to color interference. Normal NEGATIVE/ TRACE [facility] Comment on above: Performed By: #### U RTPCR #### [facility] [address] [place] [address] Dr. Dwight Waters UR MICRO IND INDICATED Normal [facility] Comment on above: Performed By: #### U RTPCR #### [facility] [address] [place] [place] [address] Dr. Dwight Waters UROBILINOGEN Unable to perform te sting due to color interference. Normal 0.2 - 1.[address] [facility] Comment on above: Performed By: #### U RTPCR #### [facility] [address] [place] [address] Dr. Dwight Waters PROF 14(COMP METB)on 022 Albumin [Mass/Vol] 3.8 g/dL Normal 3.4-5.[address] [facility] Comment on above: Performed By: #### C MP #### [facility] [address] [place] [place] [address] Dr. Dwight Waters Albumin/Globulin [Mass ratio] 1.1 {ratio} Normal [facility] Comment on above: Performed By: #### C MP #### [facility] [address] [place] [place] [address] Dr. Dwight Waters ALP [Catalytic activity/Vol] 106 U/L Normal 46-[address] [facility] Comment on above: Performed By: #### C MP #### [facility] [address] [place] [place] [address] Dr. Dwight Waters ALT [Catalytic activity/Vol] 30 U/L Normal 16-63 [facility] Comment on above: Performed By: #### C MP #### [facility] [address] [place] [place] [address] Dr. Dwight Waters Anion gap [Moles/Vol] 11.7 mmol/L Normal [facility] Comment on above: Performed By: #### C MP #### [facility] [address] [place] [place] [address] Dr. Dwight Waters AST [Catalytic activity/Vol] 16 U/L Normal 15-[address] [facility] Comment on above: Performed By: #### C MP #### [facility] [address] [place] [address] Dr. Dwight Waters Bilirubin [Mass/Vol] 0.6 mg/dL Normal 0.2-1.[address] [facility] Comment on above: Performed By: #### C MP #### [facility] [address] [place] [place] [address] Dr. Dwight Waters Calcium [Mass/Vol] 9.1 mg/dL Normal 8.5-10.[address] [facility] Comment on above: Performed By: #### C MP #### [facility] [address] [place] [place] [address] Dr. Dwight Waters CO2 [Moles/Vol] 27.4 mmol/L Normal 21.0-32.[address] [facility] Comment on above: Performed By: #### C MP #### [facility] [address] [place] [place] [address] Dr. Dwight Waters Creatinine [Mass/Vol] 1.18 mg/dL Normal 0.70-1.[address] [facility] Comment on above: Performed By: #### C MP #### [facility] [address] [place] [place] [address] Dr. Dwight Waters EGFR-AF AUSTR[place]IAN >60 Normal >=[address] [facility] Comment on above: Performed By: #### C MP #### [facility] [address] [place] [place] [address] Dr. Dwight Waters EGFR-NON AF AUSTRALIAN >60 Normal >=[address] [facility] Comment on above: Performed By: #### C MP #### [facility] [address] [place] [place] [address] Dr. Dwight Waters Globulin (S) [Mass/Vol] 3.6 g/dL Normal [facility] Comment on above: Performed By: #### C MP #### [facility] [address] [place] [place] [address] Dr. Dwight Waters Glucose [Mass/Vol] 192 mg/dL Critically high 74-106 [facility] Comment on above: Performed By: #### C MP #### [facility] [address] [place] [place] [address] Dr. Dwight Waters Potassium [Moles/Vol] 4.1 mmol/L Normal 3.5-5.1 [facility] Comment on above: Performed By: #### C MP #### [facility] [address] [place] [place] [address] Dr. Dwight Waters Protein [Mass/Vol] 7.4 g/dL Normal 6.4-8.2 [facility] Comment on above: Performed By: #### C MP #### [facility] [address] [place] [place] [address] Dr. Dwight Waters Sodium [Moles/Vol] 142 mmol/L Normal 136-145 [facility] Comment on above: Performed By: #### C MP #### [facility] [address] [place] [place] [address] Dr. Dwight Waters Urea nitrogen [Mass/Vol] 17.0 mg/dL Normal 7.0-18.[address] [facility] Comment on above: Performed By: #### C MP #### [facility] [address] [place] [place] [address] Dr. Dwight Waters Urea nitrogen/Creatinine [Mass ratio] 14.4 mg/mg Normal [facility] Comment on above: Performed By: #### C MP #### [facility] [address] [place] [place] [address] Dr. Dwight Waters URINE MICROSCOPIC ONLYon BACTERIA NONE SEEN Normal NONE SEEN [facility] Comment on above: Performed By: #### U RTPCR #### [facility] [address] [place] [address] Dr. Dwight Waters Bacteria identified Cx Nom (U) NOT INDICATED Normal [facility] Comment on above: Performed By: #### U RTPCR #### [facility] [address] [place] [place] [address] Dr. Dwight Waters CAST NONE SEEN Normal NONE SEEN [facility] Comment on above: Performed By: #### U RTPCR #### [facility] [address] [place] [place] [address] Dr. Dwight Waters Crystals LM Nom (Urine sed) NONE SEEN Normal NONE SEEN [facility] Comment on above: Performed By: #### U RTPCR #### [facility] [address] [address] [address] Dwight Waters Epithelial cells LM Ql (Urine sed) RARE Normal NONE SEEN /RARE [facility] Comment on above: Performed By: #### U RTPCR #### [facility] [address] [address] [address] Dwight Waters MUCOUS NONE SEEN Normal NONE SEEN [facility] Comment on above: Performed By: #### U RTPCR #### [facility] [address] [place] [place] [address] Dr. Dwight Waters RBC (U) [#/Vol] /uL Abnormal 0-[address] [facility] Comment on above: Performed By: #### U RTPCR #### [facility] [address] [place] [place] [address] Dr. Dwight Waters WBC NONE SEEN Normal NONE SEEN [facility] Comment on above: Performed By: #### U RTPCR #### [facility] [address] [place] [place] [address] Dr. Dwight Waters K (Potassium)on 01-06-2020 Potassium [Moles/Vol] 4.4 mmol/L Normal 3.7-5.3 [facility] Comment on above: Performed By: #### K #### [facility] [address] [place] [address] Heavy Duty Diesel Mechanic: Kehinde Woodward MD Potassiumon 01-06-2020 Potassium [Moles/Vol] 4.4 mmol/L 3.7 - 5.3 mmol/L [facility] Work Phone: Hemoglobin and Hematocrit, B loodon 10-24-2019 Hematocrit (Bld) [Volume fraction] 23.6 % Low 40.7 - 50.3 % [place], [place] Hemoglobin (Bld) [Mass/Vol] 7.3 g/dL Low 13 - 17 g/dL [place] Interpretation and review of laboratory results Abnormal [place] Hgb/Hcton 10-24-2019 Hematocrit (Bld) [Volume fraction] 23.6 % Low 40.7-50.3 [facility] Comment on above: Performed By: #### H H #### [facility] [address] [place] [place] [address] Heavy Duty [employer]el Mechanic: Kehinde Woodward MD Hemoglobin (Bld) [Mass/Vol] 7.3 g/dL Low 13.0-17.0 [facility] Comment on above: Performed By: #### H H #### [facility] [address] [place] [id number] Heavy Duty Diesel Mechanic: Kehinde Woodward MD Hemoglobinon 08-27-2019 Hemoglobin (Bld) [Mass/Vol] 7.5 g/dL Low 13.0-17.0 [facility] Comment on above: Performed By: #### H GB #### [facility] [address] [place] [id number] Heavy Duty Diesel Mechanic: Kehinde Woodward MD Hemoglobin (Bld) [Mass/Vol] 7.5 g/dL Low 13 - 17 g/dL [place], [place] Interpretation and review of laboratory results Abnormal [place] Hemoglobinon 08-08-2019 Hemoglobin (Bld) [Mass/Vol] 8.3 g/dL Low 13.0-17.0 [facility] Comment on above: Performed By: #### H GB #### [facility] [address] [place], [place] [id number] Heavy Duty Diesel Mechanic: Kehinde Woodward MD Hemoglobin (Bld) [Mass/Vol] 8.3 g/dL Low 13 - 17 g/dL [place] Interpretation and review of laboratory results Abnormal [place] Hemoglobinon 08-04-2019 Hemoglobin (Bld) [Mass/Vol] 8.0 g/dL Low 13.0-17.0 [facility] Comment on above: Performed By: #### H GB #### [facility] [address] [place] [id number] Heavy Duty Diesel Mechanic: Kehinde Woodward MD Hemoglobin A1Con 08-03-2019 HbA1c (Bld) [Mass fraction] % Low 4.8-5.9 [facility] Comment on above: Result Comment: The ADA and AACC recommend providing the estimated average glucose result to permit better patient understanding of their HBA1c result. Performed By: #### G LYHGB #### [facility] [address] [place] [address] Heavy Duty Diesel Mechanic: Kehinde Woodward MD Glucose [Mass/Vol] mg/dL mg/dL [place], [place] Comment on above: The ADA and AACC rec ommend providing the estimated average glucose result to permit better patient understanding of their HBA1c result. HbA1c (Bld) [Mass fraction] % Low 4.8 - 5.9 % [place] Interpretation and review of laboratory results Abnormal [place] Hemoglobinon 08-01-2019 Hemoglobin (Bld) [Mass/Vol] 8.1 g/dL Low 13.0-17.0 [facility] Comment on above: Performed By: #### H GB #### [facility] [address] [place] [id number] Heavy Duty Diesel Mechanic: Kehinde Woodward MD Hemoglobin (Bld) [Mass/Vol] 8.1 g/dL Low 13 - 17 g/dL [place] Interpretation and review of laboratory results Abnormal [place] Hgb/Hcton 06-10-2019 Hematocrit (Bld) [Volume fraction] 24.3 % Low 40.7-50.3 [facility] Comment on above: Performed By: #### H H #### [facility] [address] [place] [address] Heavy Duty Diesel Mechanic: Kehinde Woodward MD Hemoglobin (Bld) [Mass/Vol] 7.4 g/dL Low 13.0-17.0 [facility] Comment on above: Performed By: #### H H #### [facility] [address] [place] [address] Heavy Duty Diesel Mechanic: Kehinde Woodward MD Hemoglobinon 06-01-2019 Hemoglobin (Bld) [Mass/Vol] 7.2 g/dL Low 13.0-17.0 [facility] Comment on above: Performed By: #### H GB #### [facility] [address] [place] [address] Heavy Duty Diesel Mechanic: Kehinde Woodward MD K (Potassium)on 01-14-2019 Potassium [Moles/Vol] 3.6 mmol/L Low 3.7-5.3 [facility] Comment on above: Performed By: #### K #### [facility] [address] [place] [address] Heavy Duty Diesel Mechanic: Kehinde Woodward MD Otheron 10-19-2018 IMPRESSION: 1. [...] by Toxicology Laboratory at [facility]. It has not been cleared [...] Amitriptyline(50), Amphetamine(250), Atenolol(500), Barbiturates(1000), Benzoylecgonine(50), Buprenorphine(50), Bupropion(25), Caffeine(95125), Chlordiazepoxide(50), Chlorpheniramine(100), Chlorpromazine(50), Citalopram(100), Clonazepam(200), Cocaine(25), Codeine(200), [...] [place], [place] TOXICOLOGY SCREEN URINE - UD [facility] 10-12-2018 Drugs identified Screen Nom (U) For Medical Purposes Only, Non-forensic, screen results are presumptive. No confirmatory testing will follow. Invalid Interpretation Code LAB, [facility] Comment on above: This Liquid Chromato graphy Mass Spectrometry (LC/MS/MS) test was developed and its performance characteristics determined by Toxicology Laboratory at [facility]. It has not been cleared [...] Amitriptyline(50), Amphetamine(250), Atenolol(500), Barbiturates(200), Benzoylecgonine(50), Buprenorphine(500), Bupropion(25), Caffeine(03482), Cannabinoids(THC)(50), Chlordiazepoxide(50), Chlorpheniramine(100), Chlorpromazine(50), Citalopram(100), Clonazepam(200), Cocaine(25), [...] index (BMI) [Ratio] 29.43 kg/m2 Rebeca Gutierrez INTERNATIONAL EXCHANGE COORDINATOR-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 Work Phone: [facility] 06-17-2024 08:37-0400 Body temperature 97.39 [degF] Rebeca Gutierrez INTERNATIONAL EXCHANGE COORDINATOR-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 Work Phone: [facility] 06-17-2024 08:37-0400 Body weight 85.23 kg Rebeca Gutierrez INTERNATIONAL EXCHANGE COORDINATOR-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 Work Phone: [facility] 06-17-2024 08:37-0400 Diastolic blood pressure 75 mm[Hg] Rebeca Gutierrez INTERNATIONAL EXCHANGE COORDINATOR-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 Work Phone: [facility] 06-17-2024 08:37-0400 Heart rate 53 /min Rebeca Gutierrez INTERNATIONAL EXCHANGE COORDINATOR-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 Work Phone: [facility] 06-17-2024 08:37-0400 Systolic blood pressure 143 mm[Hg] Rebeca Gutierrez INTERNATIONAL EXCHANGE COORDINATOR-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 Work Phone: [facility] 06-17-2024 08:36-0400 Body mass index (BMI) [Ratio] 29.43 kg/m2 Daisha Max DO Work Phone: [facility] 06-17-2024 08:36-0400 Body temperature 97.39 [degF] Daisha Max DO Work Phone: [facility] 06-17-2024 08:36-0400 Body weight 85.23 kg Daisha Sobotka DO Work Phone: [facility] 06-17-2024 08:36-0400 Diastolic blood pressure 75 mm[Hg] Daisha Sobotka DO Work Phone: [facility] 06-17-2024 08:36-0400 Heart rate 53 /min Daisha Sobotka DO Work Phone: [facility] 06-17-2024 08:36-0400 Systolic blood pressure 143 mm[Hg] Daisha Sobotka DO Work Phone: [facility] 02-26-2024 09:07-0400 Diastolic blood pressure 56 mm[Hg] Candie Almaguer MD Work Phone: [facility] 02-26-2024 09:07-0400 Heart rate 65 /min Candie Almaguer MD Work Phone: [facility] 02-26-2024 09:07-0400 Systolic blood pressure 113 mm[Hg] Candie Almaguer MD Work Phone: [facility] 02-26-2024 09:06-0400 Body height 170.2 cm Candie Almaguer MD Work Phone: [facility] 02-26-2024 09:06-0400 Body mass index (BMI) [Ratio] 28.9 kg/m2 Candie Almaguer MD Work Phone: [facility] 02-26-2024 09:06-0400 Body weight 83.69 kg Candie Almaguer MD Work Phone: [facility] 02-26-2024 09:06-0400 Respiratory rate 20 /min Candie Almaguer MD Work Phone: [facility] 02-26-2024 09:06-0400 SaO2% (BldA) [Mass fraction] 97 % Candie Almaguer MD Work Phone: [facility] 01-23-2024 15:04-0500 Body temperature 97.9 [degF] Kevin Sage MD Work Phone: [facility] 01-23-2024 15:04-0500 Diastolic blood pressure 67 mm[Hg] Kevin Sage MD Work Phone: [facility] 01-23-2024 15:04-0500 Heart rate 51 /min Kevin Sage MD Work Phone: [facility] 01-23-2024 15:04-0500 Respiratory rate 16 /min Kevin Sage MD Work Phone: [facility] 01-23-2024 15:04-0500 SaO2% (BldA) [Mass fraction] 94 % Kevin Sage MD Work Phone: [facility] 01-23-2024 15:04-0500 Systolic blood pressure 151 mm[Hg] Kevin Sage MD Work Phone: [facility] 01-23-2024 10:46-0500 Body mass index (BMI) [Ratio] 30.94 kg/m2 Kevin Sage MD Work Phone: [facility] 01-23-2024 10:46-0500 Body weight 89.6 kg Kevin Sage MD Work Phone: [facility] 01-18-2024 11:21-0500 Body height 170.2 cm Kevin Sage MD Work Phone: [facility] 01-06-2024 09:04-0500 Body height 170.2 cm Zuly Bruno NP Work Phone: [facility] 01-06-2024 09:04-0500 Body mass index (BMI) [Ratio] 32.42 kg/m2 Zulytray Annz [employer]ARIFF COMPILER Work Phone: [facility] 01-06-2024 09:04-0500 Body temperature 97.81 [degF] Zulytray Tannerholz [employer]ARIFF COMPILER Work Phone: [facility] 01-06-2024 09:04-0500 Body weight 93.89 kg Zulytray Tannerholz [employer]ARIFF COMPILER Work Phone: [facility] 01-06-2024 09:04-0500 Diastolic blood pressure 70 mm[Hg] Zuly Lexiehholz [employer]ARIFF COMPILER Work Phone: [facility] 01-06-2024 09:04-0500 Heart rate 95 /min Zulytray Tannerholz TARIFF COMPILER Work Phone: [facility] 01-06-2024 09:04-0500 Respiratory rate 17 /min Zuly Brianholz [employer]AR[employer] COMPILER Work Phone: [facility] 01-06-2024 09:04-0500 SaO2% (BldA) [Mass fraction] 99 % Uzly Lexiehholz [employer]ARIFF COMPILER Work Phone: [facility] 01-06-2024 09:04-0500 Systolic blood pressure 138 mm[Hg] Zuly Brianholz [employer]AR[employer] COMPILER Work Phone: [facility] 09-11-2023 10:31-0400 Body temperature 97.81 [degF] Steve Yeison MBBS Work Phone: [facility] 09-11-2023 10:31-0400 Diastolic blood pressure 66 mm[Hg] Steve Yeison MBBS Work Phone: [facility] 09-11-2023 10:31-0400 Heart rate 70 /min Steve Yeison MBBS Work Phone: [facility] 09-11-2023 10:31-0400 Respiratory rate 20 /min Steve Yeison MBBS Work Phone: [facility] 09-11-2023 10:31-0400 SaO2% (BldA) [Mass fraction] 91 % Steve Yeison MBBS Work Phone: [facility] 09-11-2023 10:31-0400 Systolic blood pressure 129 mm[Hg] Steve Yeison MBBS Work Phone: [facility] 09-10-2023 15:50-0400 Body mass index (BMI) [Ratio] 31.99 kg/m2 Steve Yeison MBBS Work Phone: [facility] 09-10-2023 15:50-0400 Body weight 92.67 kg Steve Yeison MBBS Work Phone: [facility] 09-02-2023 07:32-0400 Body height 170.2 cm Steve Yeison MBBS Work Phone: [facility] 08-28-2023 13:33-0400 Body height 170.2 cm Steve Yeison MBBS Work Phone: [facility] 08-28-2023 13:33-0400 Body mass index (BMI) [Ratio] 32.12 kg/m2 Steve Yeison MBBS Work Phone: [facility] 08-28-2023 13:33-0400 Body temperature 97.3 [degF] Steve Yeison MBBS Work Phone: [facility] 08-28-2023 13:33-0400 Body weight 93.03 kg Steve Yeison MBBS Work Phone: [facility] 08-28-2023 13:33-0400 Diastolic blood pressure 41 mm[Hg] Steve Yeison MBBS Work Phone: [facility] 08-28-2023 13:33-0400 Heart rate 116 /min Steve Yeison MBBS Work Phone: [facility] 08-28-2023 13:33-0400 Systolic blood pressure 106 mm[Hg] Steve Yeison MBBS Work Phone: [facility] 06-12-2023 14:50-0400 Body mass index (BMI) [Ratio] 33.8 kg/m2 Rebeca Gutierrez INTERNATIONAL EXCHANGE COORDINATOR-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 Work Phone: [facility] 06-12-2023 14:50-0400 Body temperature 97.3 [degF] Rebeca Gutierrez INTERNATIONAL EXCHANGE COORDINATOR-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 Work Phone: [facility] 06-12-2023 14:50-0400 Body weight 97.89 kg Rebeca Gutierrez INTERNATIONAL EXCHANGE COORDINATOR-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 Work Phone: [facility] 06-12-2023 14:50-0400 Diastolic blood pressure 77 mm[Hg] Rebeca Gutierrez INTERNATIONAL EXCHANGE COORDINATOR-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 Work Phone: [facility] 06-12-2023 14:50-0400 Heart rate 76 /min Rebeca Gutierrez INTERNATIONAL EXCHANGE COORDINATOR-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 Work Phone: [facility] 06-12-2023 14:50-0400 Systolic blood pressure 146 mm[Hg] Rebeca Gutierrez INTERNATIONAL EXCHANGE COORDINATOR-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 Work Phone: [facility] 01-16-2023 08:57-0500 Body height 170.2 cm [facility] Work Phone: [facility] 01-16-2023 08:57-0500 Body mass index (BMI) [Ratio] 33.66 kg/m2 [facility] Work Phone: [facility] 01-16-2023 08:57-0500 Body temperature 97.3 [degF] [facility] Work Phone: [facility] 02-17-2023 08:57-0500 Body weight 97.48 kg [facility] Work Phone: [facility] 01-16-2023 08:57-0500 Diastolic blood pressure 75 mm[Hg] [facility] Work Phone: [facility] 01-16-2023 08:57-0500 Heart rate 76 /min [facility] Work Phone: [facility] 01-16-2023 08:57-0500 Systolic blood pressure 142 mm[Hg] [facility] Work Phone: [facility] 09-10-2022 09:38-0400 Body height 170.2 cm Ryan Yepez MD Work Phone: [facility] 09-10-2022 09:38-0400 Body mass index (BMI) [Ratio] 33.67 kg/m2 Ryan Yepez MD Work Phone: [facility] 09-10-2022 09:38-0400 Body weight 97.52 kg Ryan Yepez MD Work Phone: [facility] 09-10-2022 09:38-0400 Diastolic blood pressure 83 mm[Hg] Ryan Yepez MD Work Phone: [facility] 09-10-2022 09:38-0400 Heart rate 64 /min Ryan Yepez MD Work Phone: [facility] 09-10-2022 09:38-0400 SaO2% (BldA) [Mass fraction] 96 % Ryan Yepez MD Work Phone: [facility] 09-10-2022 09:38-0400 Systolic blood pressure 129 mm[Hg] Ryan Yepez MD Work Phone: [facility] 07-07-2022 13:48-0400 Diastolic blood pressure 76 mm[Hg] Ryan Yepez MD Work Phone: [facility] 07-07-2022 13:48-0400 Heart rate 82 /min Ryan Yepez MD Work Phone: [facility] 07-07-2022 13:48-0400 SaO2% (BldA) [Mass fraction] 96 % Ryan Yepez MD Work Phone: [facility] 07-07-2022 13:48-0400 Systolic blood pressure 141 mm[Hg] Ryan Yepez MD Work Phone: [phone] [address] 06-27-2022 13:32-0400 Body height 170.2 cm Ryan Yepez MD Work Phone: [phone] [address] 06-27-2022 13:32-0400 Body mass index (BMI) [Ratio] 34.24 kg/m2 Ryan Yepez MD Work Phone: [facility] 06-27-2022 13:32-0400 Body temperature 98.6 [degF] Ryan Yepez MD Work Phone: [facility] 06-27-2022 13:32-0400 Body weight 99.16 kg Ryan Yepez MD Work Phone: [facility] 06-27-2022 13:32-0400 Diastolic blood pressure 78 mm[Hg] Ryan Yepez MD Work Phone: [facility] 06-27-2022 13:32-0400 Heart rate 77 /min Ryan Yepez MD Work Phone: [facility] 06-27-2022 13:32-0400 SaO2% (BldA) [Mass fraction] 95 % Ryan Yepez MD Work Phone: [facility] 06-27-2022 13:32-0400 Systolic blood pressure 121 mm[Hg] Ryan Yepez MD Work Phone: [facility] 06-27-2022 10:52-0400 Body height 170.2 cm Rena Brewster RN [facility] 06-27-2022 10:52-0400 Body mass index (BMI) [Ratio] 34.46 kg/m2 Rena Brewster RN [facility] 06-27-2022 10:52-0400 Body temperature 98.2 [degF] Rena Brewster RN [facility] 06-27-2022 10:52-0400 Body weight 99.79 kg Rena Brewsetr RN [facility] 06-27-2022 10:52-0400 Diastolic blood pressure 73 mm[Hg] Rena Brewster RN [facility] 06-27-2022 10:52-0400 Heart rate 78 /min Rena Brewster RN [facility] 06-27-2022 10:52-0400 Respiratory rate 20 /min Rena Brewster RN [facility] 06-27-2022 10:52-0400 SaO2% (BldA) [Mass fraction] 97 % Rena Brewster RN [facility] 06-27-2022 10:52-0400 Systolic blood pressure 135 mm[Hg] Rena Brewster RN [facility] 06-12-2022 14:23-0400 Body mass index (BMI) [Ratio] 34.59 kg/m2 Steve LEIGH Work Phone: [facility] 06-12-2022 14:23-0400 Body temperature 97 [degF] Steve LEIGH Work Phone: [facility] 06-12-2022 14:23-0400 Body weight 100.2 kg Steve LEIGH Work Phone: [facility] 06-12-2022 14:23-0400 Diastolic blood pressure 66 mm[Hg] Steve Latham MBBS Work Phone: [facility] 06-12-2022 14:23-0400 Heart rate 63 /min Steve Latham MBBS Work Phone: [facility] 06-12-2022 14:23-0400 Systolic blood pressure 133 mm[Hg] Steve Latham MBBS Work Phone: [facility] 05-20-2022 15:21-0400 Body temperature 97.9 [degF] Gian Villatoro MD Work Phone: [facility] 05-20-2022 15:21-0400 Diastolic blood pressure 64 mm[Hg] Gian Villatoro MD Work Phone: [facility] 05-20-2022 15:21-0400 Heart rate 55 /min Gian Villatoro MD Work Phone: [facility] 05-20-2022 15:21-0400 Respiratory rate 15 /min Gian Villatoro MD Work Phone: [facility] 05-20-2022 15:21-0400 SaO2% (BldA) [Mass fraction] 95 % Gian Villatoro MD Work Phone: [facility] 05-20-2022 15:21-0400 Systolic blood pressure 145 mm[Hg] Gian Villatoro MD Work Phone: [facility] 05-19-2022 12:15-0400 Body mass index (BMI) [Ratio] 35.87 kg/m2 Gian Villatoro MD Work Phone: [facility] 05-19-2022 12:15-0400 Body weight 103.92 kg Gian Villatoro MD Work Phone: [facility] Comment on above: standing scale 05-16-2022 16:19-0400 Body height 170.2 cm Gian Villatoro MD Work Phone: [facility] 10-19-2018 08:44-0500 BMI (Body Mass Index) 26.58 kg/m2 [facility] Work Phone: 10-19-2018 08:44-0500 BP Diastolic 76 mm[Hg] [facility] Work Phone: 10-19-2018 08:44-0500 BP Systolic 144 mm[Hg] [facility] Work Phone: 10-19-2018 08:44-0500 Height 172.7 cm [facility] Work Phone: 10-19-2018 08:44-0500 Pulse (Heart Rate) 92 /min [facility] Work Phone: 10-19-2018 08:44-0500 Pulse Oximetry 99 % [facility] Work Phone: 10-19-2018 08:44-0500 Respiratory Rate 16 /min [facility] Work Phone: 10-19-2018 08:44-0500 Weight 79.29 kg [facility] Work Phone: 10-12-2018 09:50-0500 BMI (Body Mass Index) 27.24 kg/m2 [facility] Work Phone: 10-12-2018 09:50-0500 Body Temperature 98.6 [degF] [facility] Work Phone: 10-12-2018 09:50-0500 BP Diastolic 80 mm[Hg] [facility] Work Phone: 10-12-2018 09:50-0500 BP Systolic 157 mm[Hg] [facility] Work Phone: 10-12-2018 09:50-0500 Height 169.5 cm [facility] Work Phone: 10-12-2018 09:50-0500 Pulse (Heart Rate) 94 /min [facility] Work Phone: 10-12-2018 09:50-0500 Weight 78.29 kg [facility] Work Phone: Encounters Encounter Date Encounter Type Care Provider Facility Start: 09-08-2024 ambulatory Clementina Montesinos Facility :[facility] Start: 08-24-2024 ambulatory Clementinapattie Montesinos Facility:E Lucius Alirio Start: 08-23-2024 End: 08-23-2024 ambulatory ZULY BRUNO Not Available Start: 06-23-2024 End: 06-23-2024 ambulatory Meka Munoz [facility] Pharm[facility] Outpatient [facility] Start: 06-23-2024 End: 06-23-2024 Patient encounter procedure Meka Munoz [facility] Pharm[facility] Outpatient [facility] Start: 06-17-2024 End: 06-17-2024 Office outpatient visit 25 minutes Daisha Max DO Work Phone: [facility] Comment on above: Liver lesion (Primar y Dx); Liver transplant recipient; High risk medication use; Therapeutic drug monitoring; 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) Start: 06-17-2024 ambulatory DAISHA MAX Facil ity:[facility] Start: 05-26-2024 End: 05-26-2024 ambulatory Evan Bolton [facility],PharmD Pharmacy Outpatient RX [facility] Start: 05-26-2024 End: 05-26-2024 Patient encounter procedure Evan Bolton [facility],PharmD Pharmacy Outpatient [facility] [place] Start: 05-13-2024 End: 05-13-2024 ambulatory [facility] Start: 04-18-2024 End: 04-18-2024 ambulatory ZULY KIANA Not Available Start: 03-24-2024 End: 03-24-2024 Patient encounter procedure Angel Carpio [facility],PharmD Pharmacy Outpatient [facility] Start: 03-24-2024 End: 03-24-2024 ambulatory Angel Carpio [facility]arm[facility] Pharmacy Outpatient [facility] [place] Start: 03-22-2024 [...] [facility] [place] Start: 03-02-2024 End: 03-02-2024 Patient encounter procedure Meka Munoz [facility] Pharmacy Outpatient [facility] [place] Start: 03-01-2024 ambulatory ZULY KIANA Facility: [facility] Start: 03-01-2024 End: 03-01-2024 ambulatory JOHNNA BRINK Not Available Start: 02-26-2024 ambulatory ZULY KIANA Facility: [facility] Start: 02-26-2024 End: 02-26-2024 Office outpatient new 30 minutes Candie Almaguer MD Work Phone: [facility] Comment on above: Heart failure, diast olic, acute (Primary Dx) Start: 02-26-2024 ambulatory ZULY ELENZ Facility: [facility] Start: 02-25-2024 End: 02-25-2024 ambulatory FIDELINA SANCHEZ Not Available Start: 02-23-2024 End: 02-23-2024 ambulatory PALMA PALACIOS Not Available Start: 02-11-2024 End: 02-11-2024 ambulatory ZULY KIANA Not Available Start: 01-16-2024 Encounter for other preprocedural examination KELVIN PACHECO 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 Work Phone: [facility] Comment on above: Bilateral lower extr [...] procedure Angel Carpio RPh,PharmD Pharmacy Outpatient RX [place] Start: 09-29-2023 [facility] Start: 09-23-2023 [facility] Start: 09-15-2023 [facility] Start: 08-28-2023 End: 09-11-2023 Evaluation and management of inpatient Steve Colón Yeison MBBS Work Phone: [id number] Start: 08-28-2023 End: 08-28-2023 Office outpatient visit 25 minutes Steve S Yeison MBBS Work Phone: [facility] Comment on above: Immunosuppressed sta tus (Primary Dx); Kidney replaced by transplant; Aftercare following organ transplant; High risk medication use; Other general symptoms and signs; Abnormal blood chemistry; Hypertension secondary to other renal disorders Start: 08-28-2023 ambulatory STEVE LATHAM [facility] Start: 08-19-2023 ambulatory Meka rueda [facility] Pharmacy Outpatient RX [place] Start: 08-19-2023 Patient encounter procedure Meka Munoz [facility] Pharmacy Outpatient [facility] [place] Start: 06-12-2023 End: 06-12-2023 Office outpatient visit 25 minutes Stevemassiel Latham MBBS Work Phone: [facility] Comment on above: 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) Start: 06-10-2023 ambulatory Maren Bar RPh,PharmD Pharmacy Outpatient RX [place] Start: 06-10-2023 Patient encounter procedure Maren Bar RPh,PharmD Pharmacy Outpatient [facility] [place] Start: 04-28-2023 End: 04-29-[address] DOCTOR EVANS Facility:[facility] Start: 03-12-2023 ambulatory Angel Fete RPh,PharmD Pharmacy Outpatient RX [place] Start: 03-12-2023 Patient encounter procedure Angel Fete RPh,PharmD Pharmacy Outpatient RX [place] Start: 03-10-2023 ambulatory Angel Fete RPh,PharmD Pharmacy Outpatient [facility] [place] Start: 03-10-2023 Patient encounter procedure Angel Carpio RPh,PharmD Pharmacy Outpatient [facility] [place] Start: 03-02-2023 End: 03-03-[address] DOCTOR EVANS Facility:[facility] Start: 01-16-2023 End: 01-16-2023 Office outpatient visit 25 minutes Daisha Max DO Work Phone: [facility] [place] [facility] Comment on above: Abnormal blood [...] MD Work Phone: [facility] Comment on above: BPH with obstruction /lower urinary tract symptoms (Primary Dx); Encounter for screening for malignant neoplasm of prostate Start: 08-28-2022 End: 08-29-2022 ambulatory ROB BRUNO Facility:[facility] Start: 08-14-2022 End: 08-15-[address] DOCTOR EVANS Facility:[facility] Start: 07-07-2022 End: 07-07-2022 Patient encounter procedure Ryan Yepez MD Work Phone: [facility] Comment on above: Other hydronephrosis (Primary Dx); [...] MD Work Phone: [facility] Comment on above: Other hydronephrosis (Primary Dx) [...] [place] Facility: Start: 03-14-2022 ambulatory Comfort Rivera [facility] Work Phone: Pharmacy Outpatient [facility] Start: 03-14-2022 Patient encounter procedure Comfort Rivera [facility] Work Phone: Pharmacy Outpatient [facility] Start: 06-14-2021 End: 06-14-2021 ambulatory oCmfort Rivera [facility] Work Phone: [facility] Start: 06-14-2021 Patient encounter procedure Comfort Rivera [facility] Work Phone: [facility] Start: 01-20-2020 End: 01-27-2020 Patient encounter procedure PEPE CASE Facility:[facility] Start: 01-06-2020 End: 01-07-2020 Patient encounter procedure [facility] Start: 01-06-2020 End: 01-06-2020 Subsequent hospital visit by physician [facility] Start: 10-24-2019 End: 10-25-2019 Patient encounter procedure TANA Colón [facility] Start: 10-24-2019 End: 10-24-2019 Subsequent hospital visit by physician [facility] Start: 08-27-2019 End: 08-28-2019 Patient encounter procedure [facility] Start: 08-27-2019 End: 08-27-2019 Subsequent hospital visit by physician [facility] Start: 08-08-2019 End: 08-09-2019 Patient encounter procedure [facility] Start: 08-08-2019 End: 08-08-2019 Subsequent hospital visit by physician [facility] Start: 08-03-2019 End: 08-04-2019 Patient encounter procedure [facility] Start: 08-03-2019 End: 08-03-2019 Subsequent hospital visit by physician [facility] Start: 08-01-2019 End: 08-02-2019 Patient encounter procedure [facility] Start: 08-01-2019 End: 08-01-2019 Subsequent hospital visit by physician [facility] Start: 06-10-2019 End: 06-11-2019 Patient encounter procedure [facility] Start: 06-01-2019 End: 06-02-2019 Patient encounter procedure [facility] Start: 01-14-2019 End: 01-15-2019 Patient encounter procedure [facility] Start: 11-17-2018 End: 11-17-2018 Patient encounter procedure Fidelina Pierson [facility] Pre Transplant Office Comment on above: Social Work Follow-u p Start: 10-19-2018 End: 10-19-2018 Patient encounter Autumn [facility] Pre [facility]plant [facility] Comment on above: Cirrhosis of liver w ithout ascites, unspecified hepatic cirrhosis type (Primary Dx) Start: 10-19-2018 End: 10-19-2018 Office outpatient visit 25 minutes Christin Elizabeth Work Phone: Division of Gastroenterology and Hepat[facility] Comment on above: Alcoholic cirrhosis of liver without ascites (Primary Dx); Pre-transplant evaluation for liver transplant; Hepatic encephalopathy Start: 10-13-2018 End: 10-13-2018 Patient encounter procedure [facility] Pre Transplant Office Comment on above: Reschedule Outside Medical Allan rds Request Start: 10-12-2018 End: 10-12-2018 Patient encounter procedure Sophie Cary [facility] Pre Transplant Office Comment on above: Alcoholic cirrhosis, unspecified whether ascites present (Primary Dx); Pre-transplant evaluation for liver transplant Start: 10-12-2018 End: 10-12-2018 Office outpatient new 60 minutes Alfredito Restrepo Work Phone: [facility] Pre Transplant Office [...] [facility] Work Phone: [facility] Procedures Date Procedure Procedure Detail Performing Clinician [...] above: Performed By: #### X M ####[facility] ([facility])[address] [place] [address] Start: 01-22-2024 Assay of magnesium Just in [...] LEVEL Jennifer norbert Ortiz Alarcon [facility] Work [...] tion each organism Fidelina Alarcon [facility] Work Phone: Start: 01-18-2024 Echocardiography STEVE [...] AURIS SCREEN BY PCR Carol Ann Capps INTERNATIONAL EXCHANGE COORDINATOR-IMMIGRATION SERVICES OFFICER Work Phone: Start: 01-08-2024 ALL CBC WITH AUTO DIFF Generic External Data Provider Start: 01-01-2024 ALL CBC WITH AUTO DIFF Generic External Data Provider Start: 09-23-2023 Follow-up visit Follow-up HAEKEM ALAMO Start: 09-11-2023 Glucose measurement, blood Kevin [...] Work Phone: Start: 08-30-2023 Hepatic function panel Evna Kelly MD Work Phone: Start: 08-29-2023 Prothrombin [...] AURIS SCREEN BY PCR Carol Ann Capps INTERNATIONAL EXCHANGE COORDINATOR-IMMIGRATION SERVICES OFFICER Work Phone: Start: 08-28-2023 CBC AND ELECTRONIC [...] C MP #### [facility] [address] [place] [address] Dr. Dwight Waters Start: 07-07-2022 Rmvl nfros [...] Hemoglobin glycosylated a1c Steve Latham [facility] Work Phone: Start: 06-12-2022 Hepatic function panel Yovani Orr MD Work Phone: Start: 06-12-2022 URINALYSIS REFLEX TO CULTURE Steve Latham [facility] Work Phone: Start: 05-20-2022 Urography antegrade rs&i [...] Start: 10-19-2018 End: 10-19-2018 Ultrasonography of abdomen Yovain Orr Work Phone: Start: 10-12-2018 End: 10-12-2018 [...] Paulino ey replaced by transplant Rebeca Gutierrez INTERNATIONAL EXCHANGE COORDINATOR-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 Work Phone: Plan of Treatment Date Care Activity Detail Author Start: 09-20-2029 Screening for malignant neoplasm of colon [facility] Start: 07-04-2025 Potassium [Moles/volume] in Serum or Plasma POTASSIUM [facility] Start: 06-20-2025 Potassium [Moles/volume] in Serum or Plasma POTASSIUM [facility] Start: 06-16-2025 End: 06-16-2025 Patient encounter procedure [facility] Start: 06-13-2025 Potassium [Moles/volume] in Serum or Plasma POTASSIUM [facility] Start: 05-23-2025 Potassium [Moles/volume] in Serum or Plasma POTASSIUM [facility] Start: 03-28-2025 Potassium [Moles/volume] in Serum or Plasma POTASSIUM [facility] Start: 03-21-2025 Potassium [Moles/volume] in Serum or Plasma POTASSIUM [facility] Start: 02-28-2025 Potassium [Moles/volume] in Serum or Plasma POTASSIUM [facility] Start: 01-23-2025 Potassium [Moles/volume] in Serum or Plasma POTASSIUM [facility] Start: 09-07-2024 End: 09-07-2024 Telemedicine consultation with patient 09/07/2024 3:00 PM EDT Telemedicine [facility] [address] [facility] [address] [place] [phone] Evan White DO [address] [place] [address] [facility] Start: 08-31-2024 Screening for malignant neoplasm of lung [facility] Start: 07-31-2024 Influenza vaccination INFLUENZA VACCINE (#1) [facility] Start: 06-17-2024 End: 06-17-2024 ambulatory [facility] [place] [facility] Start: 06-17-2024 End: 06-17-2024 Patient encounter procedure [facility] Start: 03-22-2024 Fasting lipid profile LIPID SCREENING [facility] Start: 03-22-2024 Lipid panel [facility] Start: 02-26-2024 End: 02-26-2024 Patient encounter procedure 02/26/2024 9:30 AM EDT Office Visit [facility] [address] [place] [address] Candie Almaguer MD [address] [place] [address] [facility] Start: 02-11-2024 End: 02-11-2024 Patient encounter procedure 02/11/2024 10:30 AM EDT Office Visit [facility] [address] [place] [address] Zuly Bruno NP [address] [place] [address] [facility] Start: 02-09-2024 End: 02-09-2024 Telemedicine consultation with patient 02/09/2024 3:30 PM EDT Telemedicine [facility] [address] [place] [address] [phone] Hakeem Alamo MD [address] [address] Infectious Diseases [facility] Start: 01-15-2024 End: 01-15-2024 ambulatory [facility] Start: 01-15-2024 End: 01-15-2024 Patient encounter procedure [facility] Start: 01-06-2024 End: 01-06-2026 Echocardiogram 2D [...] Visit [facility] [address] [place] [phone] Zuly Bruno NP [address] [place] [id number] [facility] Start: 12-08-2023 End: 09-07-2024 CT Chest WO contrast [facility] Work Phone: Start: 12-01-2023 COVID-19 VACCINE (2 - Moderna risk series) COVID-19 VACCINE (2 - Moderna risk series) [facility] Start: 09-23-2023 End: 09-23-2023 ambulatory [facility] Start: 09-23-2023 End: 09-23-2023 Telemedicine consultation with patient 09/23/2023 4:00 PM EDT Telemedicine Infectious [facility] [address] [phone] Hakeem Alamo MD [address] [address] Infectious Diseases Care [facility] Start: 09-15-2023 End: 09-10-2024 ITRACONAZOLE LEVEL [facility] Start: 08-25-2023 End: 08-25-2024 ALLOSCREEN RECIPIENT (POST TX PRA) ALLOSCREEN RECIPIENT (POST TX PRA) Lab Routine Kidney replaced by transplant Aftercare following organ transplant Immunosuppressed status High risk medication use Other general symptoms and signs Abnormal blood chemistry Expected: 08/25/2023, Expires: 08/25/2024 [facility] Comment on above: Expected: 08/25/2023, Expires: Start: 07-31-2023 Influenza vaccination [facility] Start: 06-12-2023 End: 06-12-2023 Patient encounter procedure 06/12/2023 Office Visit Transplant Surgery Steve Latham JOSH ColónBS [address] [place] [address] [facility] Start: 03-11-2023 End: 03-11-2023 Telemedicine consultation with patient 03/11/2023 Telemedicine Urology Ryan Yepez MD [address] [facility] [address] [place] [id number] [facility] Start: 01-16-2023 End: 01-16-2023 Patient encounter procedure 01/16/2023 Office Visit Transplant Surgery [facility] Start: 10-31-2022 End: 10-31-2022 Patient encounter procedure 10/31/2022 Office Visit Transplant Surgery Steve Latham MBBS [address] [place] [phone] [facility] Start: 09-10-2022 End: 09-10-2023 PSA screening PSA, SCREENING Lab Routine BPH with obstruction/lower urinary tract symptoms Encounter for screening for malignant neoplasm of prostate Expected: 09/10/2022 (Approximate), Expires: 09/10/2023 [facility] Comment on above: Expected: 09/10/2022 (Approximate), Expi res: 09/10/2023 Start: 08-11-2022 End: 08-11-2022 Patient encounter procedure 08/11/2022 Office Visit Urology Ryan Yepez MD [address] [facility] [address] [place] [address] [facility] Start: 07-31-2022 Influenza vaccination [facility] Start: 07-07-2022 End: 07-07-2022 Patient encounter procedure 07/07/2022 Office Visit Urology Ryan Yepez MD [address] [facility] [address] [place] [address] [facility] Start: 07-07-2022 End: 07-07-2023 FLUORO IMAGING FOR UROLOGY [facility] Comment on above: Expected: 07/07/2022, Expires: 3 1 Occurrences starti ng 07/07/2022 until 07/07/2022 Start: 06-27-2022 End: 06-27-2022 Patient encounter procedure 06/27/2022 Office Visit Urology Ryan Yepez MD [address] [facility] [address] [place] [address] [facility] Start: 06-27-2022 End: 06-27-2023 Basic metabolic 2000 panel - Serum or Plasma BASIC METABOLIC PANEL Lab Routine Other hydronephrosis Expected: 06/27/2022, Expires: 06/27/2023 [facility] Comment on above: Expected: 06/27/2022, Expires: 3 Start: 06-27-2022 End: 06-27-2022 Patient encounter procedure 06/27/2022 Appointment Computerized Tomography Scan Ryan Yepez MD [address] [facility] [address] [place] [address] Department of Radiology Start: 06-15-2022 End: 05-16-2023 CT Abdomen and Pelvis WO contrast CT ABDOMEN/PELVIS WITHOUT CONTRAST Imaging Routine FAYE (acute kidney injury) Expected: 06/15/2022 (Approximate), Expires: 05/16/2023 [facility] Work Phone: Comment on above: Expected: 06/15/2022 (Approximate), Expi res: 05/16/2023 Start: 06-12-2022 End: 06-12-2022 Patient encounter procedure 06/12/2022 Office Visit Transplant Surgery Steve Latham MBBS [address] [place] [id number] [facility] Start: 06-11-2022 End: 06-11-2023 BK VIRUS DNA QN, PCR, PLASMA BK VIRUS DNA QN, PCR, PLASMA Lab Routine Kidney replaced by transplant Liver replaced by transplant Abnormal blood chemistry Expected: 06/11/2022, Expires: 06/11/2023 [facility] Comment on above: Expected: 06/11/2022, Expires: Start: 06-04-2022 End: 06-04-2022 Patient encounter procedure 06/04/2022 Office Visit Interventional Radiology [facility] Start: 10-18-2021 End: 10-18-2021 Patient encounter procedure 10/18/2021 Office Visit Transplant Surgery Steve Latham MBBS [address] [place] [id number] [facility] Start: 07-31-2021 Influenza vaccination INFLUENZA VACCINE (#1) [facility] Start: 07-26-2021 End: 07-26-2021 Patient encounter procedure 07/26/2021 Office Visit Transplant Surgery [facility] Start: 2021 Prostate specific antigen measurement [facility] Start: 2021 Screening for malignant neoplasm of lung LUNG CANCER SCREENING [facility] Start: 2021 Zoster vaccine hzv live for subcutaneous use ZOSTER (SHINGLES) VACCINE (1 of 2) [facility] Start: 09-20-2020 Colonoscopy COLORECTAL CANCER SCREENING DISCUSSION [facility] Start: 09-20-2020 Screening for malignant neoplasm of colon [facility] Start: 07-31-2019 Influenza vaccination Flu vaccine (#1) [place], [place] Start: 06-23-2019 Annual Wellness Visit (AWV) Annual Wellness Visit (AWV) [facility] [place], [place] Start: 04-18-2019 End: 10-19-2019 Ultrasonography of abdomen US ABDOMEN RUQ/LIVER/GB Routine Cirrhosis of liver without ascites, unspecified hepatic cirrhosis type Expected: 04/18/2019 (Approximate), Expires: 10/19/2019 [facility] Work Phone: Comment on above: Expected: 04/18/2019 (Approximate), Expi res: 10/19/2019 Start: 01-25-2019 End: 01-25-2019 Ambulatory 01/25/2019 Office Visit Gastroenterology Christin Elizabeth, INTERNATIONAL EXCHANGE COORDINATOR-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 [address] [place] [address] Division of Gastroenterology and Hepatology Gavin Start: 11-19-2018 End: 11-19-2018 Ambulatory 11/19/2018 Appointment Pulmonary Diagnostics [facility] Start: 11-19-2018 End: 11-19-2018 Ambulatory [facility] Start: 10-19-2018 End: 10-19-2018 Ambulatory Ultrasound Jakob Start: 10-12-2018 End: 10-12-2019 Hemoglobin A1c/Hemoglobin.total mass fraction (Bld) HEMOGLOBIN A1C Routine Alcoholic cirrhosis, unspecified whether ascites present Pre-transplant evaluation for liver transplant Expected: 10/12/2018, Expires: 10/12/2019 [facility] Work Phone: Comment on above: Expected: 10/12/2018, Expires: 9 Start: 10-12-2018 End: 10-12-2019 TYPE AND SCREEN - NOT FOR TRANSFUSION TYPE AND SCREEN - NOT FOR TRANSFUSION Routine Alcoholic cirrhosis, unspecified whether ascites present Pre-transplant evaluation for liver transplant Expected: 10/12/2018, Expires: 10/12/2019 [facility] Work Phone: Comment on above: Expected: 10/12/2018, Expires: 9 Start: 07-31-2018 Influenza vaccination INFLUENZA VACCINE (#1) [facility] Work Phone: Start: 2011 Fasting lipid profile LIPID SCREENING [facility] Work Phone: Start: 2011 Lipid screen Lipid screen [place], [place] Start: 1990 DTaP/Tdap/Td vaccine (1 - Tdap) DTaP/Tdap/Td vaccine (1 - Tdap) [place] Start: 1990 Hepatitis B vaccination HEP B VACCINE (1 of 3 - 19+ 3-dose series) [facility] Start: 1990 Hepatitis B Vaccine (1 of 3 - Risk Recombivax 3-dose series) Hepatitis B Vaccine (1 of 3 - Risk Recombivax 3-dose series) [place] Start: 1990 Third diphtheria, tetanus and acellular pertussis (DTaP) vaccination [facility] Start: 1990 Zoster vaccine hzv live for subcutaneous use ZOSTER (SHINGLES) VACCINE (1 of 2) [facility] Start: 1990 [facility] Start: 1989 Tetanus vaccination TETANUS [facility] Start: 1986 HIV screen HIV screen [place], [place] Start: 02-17-1984 HIV screening HIV SCREENING DISCUSSION [facility] Work Phone: Start: 1983 COVID-19 VACCINE (1) COVID-19 VACCINE (1) [facility] Start: 1982 DTaP/Tdap/Td vaccine (1 - Tdap) DTaP/Tdap/Td vaccine (1 - Tdap) [place] Start: 1977 Pneumococcal 0-64 years Vaccine (1 of 3 - PCV13) Pneumococcal 0-64 years Vaccine (1 of 3 - PCV13) [place] Start: 1977 PNEUMOCOCCAL VACCINE SERIES (1 - PCV) PNEUMOCOCCAL VACCINE SERIES (1 - PCV) [facility] Start: 1977 PNEUMOCOCCAL VACCINE SERIES (1 of 2 - PCV) PNEUMOCOCCAL VACCINE SERIES (1 of 2 - PCV) [facility] Start: 1977 [facility] Start: 02-17-1976 COVID-19 VACCINE (#1) COVID-19 VACCINE (#1) [facility] Start: 02-17-1976 [facility] Start: 1971 COVID-19 VACCINE (#1) COVID-19 VACCINE (#1) [facility] Start: 1971 Hepatitis B vaccination HEP B VACCINE (1 of 3 - 3-dose series) [facility] Start: 1971 Medicare Annual Wellness (AWV) Medicare Annual Wellness (AWV) [facility] Start: 1971 Screening for malignant neoplasm of colon [facility] Start: 1971 Tetanus vaccination [facility] BK VIRUS DNA QN, PCR , PLASMA BK VIRUS DNA QN, PCR, PLASMA Lab Routine Kidney replaced by transplant Liver replaced by transplant Abnormal blood chemistry 06/12/2022 3:38 PM EDT [facility] CALCULI, URINARY (KIDNEY STONE) CALCULI, URINARY (KIDNEY STONE) Fluids Routine 05/19/2022 8:16 AM EDT [facility] Work Phone: CANNABINOIDS, QUANT (URINE)THC CONFIRMATION CANNABINOIDS, QUANT (URINE)THC CONFIRMATION Routine Alcoholic cirrhosis, unspecified whether ascites present ESRD (end stage renal disease) on dialysis Pre-transplant evaluation for liver transplant 10/12/2018 12:57 PM [facility] Work Phone: End: 09-10-2024 CHEM 6 (LYTES, BUN CREA) [facility] EBV VCA IGG AB EBV VCA IGG AB R outine Alcoholic cirrhosis, unspecified whether ascites present ESRD (end stage renal disease) on dialysis Pre-transplant evaluation for liver transplant 10/12/2018 12:57 PM [facility] Work Phone: Fungus identified in Unspecified specimen by Culture [facility] HLA TYPING (SOLID ORGAN) HLA TYPING (SOLID ORGAN) Routine Alcoholic cirrhosis, unspecified whether ascites present ESRD (end stage renal disease) on dialysis Pre-transplant evaluation for liver transplant 10/12/2018 12:57 PM [facility] Work Phone: HSV 1 AND 2 IGG ANTIBODY HSV 1 AND 2 IGG ANTIBODY Routine Alcoholic cirrhosis, unspecified whether ascites present ESRD (end stage renal disease) on dialysis Pre-transplant evaluation for liver transplant 10/12/2018 12:57 PM [facility] Work Phone: MR Abdomen WO and W contrast IV MRI ABDOMEN WITH AND WITHOUT CONTRAST Imaging Routine Liver lesion Ordered: 06/17/2024 [facility] Comment on above: Ordered: 06/17/2024 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 specific culture [facility] PLACEMENT NEPHROSTOM Y CATHETER PERCUTANEOUS W/ IMAGE GUIDANCE PLACEMENT NEPHROSTOMY CATHETER PERCUTANEOUS W/ IMAGE GUIDANCE Imaging Routine Hydronephrosis due to obstruction of ureteral orifice FAYE (acute kidney injury) 05/17/2022 11:08 AM EDT [facility] DE POST VOID RESIDUAL DE POST VO ID RESIDUAL DE - OFFICE PERFORMED Routine BPH with obstruction/lower urinary tract symptoms Ordered: 09/10/2022 [facility] Comment on above: Ordered: 09/10/2022 PTH INTACT PTH INTACT Routi ne Alcoholic cirrhosis, unspecified whether ascites present ESRD (end stage renal disease) on dialysis Pre-transplant evaluation for liver transplant 10/12/2018 12:57 PM [facility] Work Phone: RUBEOLA IGG AB (IMMU NE STATUS) RUBEOLA IGG AB (IMMUNE STATUS) Routine Alcoholic cirrhosis, unspecified whether ascites present ESRD (end stage renal disease) on dialysis Pre-transplant evaluation for liver transplant 10/12/2018 12:57 PM [facility] Work Phone: End: 01-16-2024 Standard ECG ECG ECG Routine One Time for 1 Occurrences starting 01/16/2024 until 01/16/2024 [facility] Comment on above: One Time for 1 Occurrences starting 12/31 until 01/16/2024 End: 10-12-2024 TACROLIMUS LEVEL, TROUGH (PRE DRUG LEVEL) [facility] VARICELLA IGG AB (IM M STATUS) VARICELLA IGG AB (IMM STATUS) Routine Alcoholic cirrhosis, unspecified whether ascites present ESRD (end stage renal disease) on dialysis Pre-transplant evaluation for liver transplant 10/12/2018 12:57 PM EST [facility] Work Phone: Immunizations Immunization Date Immunization Notes Care Provider Fa cility 11-03-2023 influenza virus vacc ine, unspecified formulation Generic Provider [facility] 11-03-2023 Moderna SARS-CoV-2 50mcg/0.5mL Booster Generic Provider [facility] Payers Date Payer Category Payer Unknown [id number] 2019 Unknown [facility] [id number] 2019-Present [id number] 2018 Medicaid MEDICAID [facility] DEPT OF JOB xxxxxxxxxxxx 2018-Present [phone] [address] [place] [address] xxxxxxxxxxxx [id number] .[id number] 2018 Medicaid MEDICAID MEDICAI [id number] 2018-Present [address] [place] [address] [id number] .[id number] 2018 Medicaid [id number] 1.13.172.2.7.3 .[id number] 2018 Medicare MEDICARE MEDICAR E PART A AND B xxxxxxxxxxx 2018-Present [phone] [place] [address] xxxxxxxxxxx [id number] .[id number] 2018 Medicare [id number] 2018 Medicare MEDICARE MEDICAR E A AND B [id number] 2018-Present [address] [place] [address] [id number] 1.2.840.544655.1.13.172.2.7.3 .[id number] 2018 Medicare [id number]. 1.13.172.2.7.3 .561216.315 1971 Unknown [id number] 2.16.840.1.260669.3.579.2.173 1971 Unknown [id number] 2.16.840.1.395753.3.579.2.173 1971 Unknown [id number] 2.16.840.1.722865.3.579.2.173 1971 Unknown [id number] 2.16.840.1.835662.3.579.2.173 1971 Unknown [id number] 2.16.840.1.751113.3.579.2.173 1971 Unknown [id number] 2.16.840.1.687547.3.579.2.173 1971 Unknown [id number] 2.16.840.1.648742.3.579.2.173 1971 Unknown [id number] 2.16.840.1.884190.3.579.2.173 1971 Unknown [id number] 2.16.840.1.122500.3.579.2.647 1971 Unknown [id number] 2.16.840.1.026715.3.579.2.593 1971 Unknown [id number] 2.16.840.1.833034.3.579.2.593 1971 Unknown [id number] 2.16.840.1.846010.3.579.2.593 1971 Unknown [id number] 2.16.840.1.106456.3.579.2.593 1971 Unknown [id number] 2.16.840.1.809372.3.579.2.593 1971 Unknown [id number] 2.16.840.1.606313.3.579.2.593 1971 Unknown [id number] 2.16.840.1.871679.3.579.2.593 1971 Unknown [id number] 2.16.840.1.621018.3.579.2.593 1971 Unknown [id number] .16.840.1.346017.3.579.2.593 1971 Unknown [id number] 2.16.840.1.219844.3.579.2.593 1971 Unknown [id number] 2.16.840.1.016163.3.579.2.593 1971 Unknown [id number] 2.16840.1.346879.3.579.2.593 1971 Unknown [id number] 2.16.840.1.582871.3.579.2.593 1971 Unknown [id number] 2.16.840.1.725515.3.579.2.593 1971 Unknown [id number] 2.16.840.1.038842.3.579.2.593 1971 Unknown [id number] 2.16.840.1.218659.3.579.2.594 1971 Unknown [id number] .16.840.1.361015.3.579.2.594 1971 Unknown [id number] 2.16.840.1.167286.3.579.2.594 1971 Unknown [id number] 2.16.840.1.362075.3.579.2.594 1971 Unknown [id number] .16.840.1.121878.3.579.2.594 1971 Unknown [id number] 2.16.840.1.781107.3.579.2.594 1971 Unknown [id number] 2.16.840.1.398662.3.579.2.594 1971 Unknown [id number] 2.16.840.1.598275.3.579.2.594 1971 Unknown [id number] 2.16.840.1.048971.3.579.2.594 1971 Unknown [id number] 2.16.840.1.170303.3.579.2.594 1971 Unknown [id number] 2.16.840.1.686707.3.579.2.594 1971 Unknown [id number] 2.16.840.1.391886.3.579.2.594 1971 Unknown [id number] 2.16.840.1.401439.3.579.2.125 9 1971 Unknown [id number] 2.16.840.1.859739.3.579.2.125 9 1971 Unknown [id number] 2.16.840.1.679180.3.579.2.125 9 1971 Unknown [id number] 2.16.840.1.698677.3.579.2.125 9 1971 Unknown [id number] 2.16.840.1.082255.3.579.2.125 9 1971 Unknown [id number] 2.16.840.1.723283.3.579.2.125 9 1971 Unknown [id number] 2.16.840.1.278233.3.579.2.125 9 1971 Unknown [id number] 2.16.840.1.017886.3.579.2.125 9 1971 Unknown [id number] 2.16.840.1.725460.3.579.2.125 9 1971 Unknown [id number] 2.16.840.1.225385.3.579.2.125 9 1971 Unknown [id number] 2.16.840.1.431617.3.579.2.125 9 1971 Unknown [id number] 2.16.840.1.818602.3.579.2.125 9 1971 Unknown [id number] 2.16.840.1.644923.3.579.2.125 9 1971 Unknown [id number] 2.16.840.1.745487.3.579.2.125 9 1971 Unknown [id number] 2.16.840.1.642788.3.579.2.125 9 1971 Unknown [id number] 2.16.840.1.123811.3.579.2.727 1959 Medicaid [id number] 1959 Medicare [id number] Social History Date Type Detail Facility Start: 07-19-2018 End: 10-19-2018 Tobacco smoking status NHIS Former smoker [facility] Start: 07-19-1988 End: 05-14-2018 History of tobacco use Current smoker [facility] Work Phone: Start: 07-19-1988 End: 05-14-2018 History of tobacco use Cigarette Smoker [facility] Work Phone: Start: 10-19-2018 End: 06-17-2024 Cigarettes smoked current (pack per day) - Reported [facility] End: 07-19-1994 History of tobacco use Chews Tobacco [facility] Work Phone: Start: 1971 Sex Assigned At Not on file [facility] Work Phone: Start: 11-03-2018 Alcohol intake Current non-drinker of alcohol (finding) [place] Start: 06-22-2018 Alcohol Comment Hx of alcoholism [place], [place] Start: 11-03-2018 End: 06-17-2024 Alcohol intake No [facility] Start: 07-19-2018 Tobacco use and exposure Former user [facility] Start: 09-06-2020 End: 06-17-2024 Alcohol intake Ex-drinker (finding) [facility] Start: 07-19-2018 Alcohol Comment stopped 05/14/2018 [facility] Start: 05-05-2022 End: 01-16-2023 Exposure to SARS-CoV-2 (event) Not sure [facility] Start: 07-07-2018 Gender identity Identifies as male gender (finding) [facility] Start: 01-16-2022 Sexual orientation Heterosexual (finding) [facility] Start: 11-03-2023 Tobacco use and exposure [...] Dates [id number] Start: 05-23-2020 [id number] Start: 04-12-2020 [id number] [facility] Start: 05-17-2022 Comment on above: Description: Implant time-out completed by intra-procedural staff including this RN, cryptologic technician, and performing physician. The following was [...] Required: No Receive/Pickup Date: 06/29/2024 Shipping Address: [address] [place] [address] Contact Info: Specialty ([place]) [phone] Jakob [phone] [facility] [phone] David [phone] Bedside Delivery ([facility]) [phone] documented in this encounter [facility] 06-17-2024 History of Present illness Narrative -Referring Provider for today's consult: Self, Self -Primary Care Provider: Zuly Bruno History of Present Illness George Styles is a 54 y.o. male who presents to the [facility] Transplant Hepatology Clinic today [...] Left; Surgeon: Jyoti Bryant MD, PhD; Location: [facility] MAIN OR PLACEMENT NEPHROSTOMY CATHETER PERCUTANEOUS W/ IMAGE GUIDANCE 05/17/2022 Surgeon: Enzo Heart DO; Location: [facility] INTERVENTIONAL RADIOLOGY (VIR) LIVER TRANSPLANT, ORTHOTOPIC N/A 04/12/2020 Laterality: N/A; Surgeon: LU Palma; Location: [facility] SAME DAY SURGERY MAIN OR KIDNEY TRANSPLANT W/O [place]AK[place] NEPHRECTOMY N/A 04/12/2020 Laterality: N/A; Surgeon: LU Palma; Location: [facility] SAME DAY SURGERY MAIN OR OTHER SURGICAL [...] 0.2 06/13/2024 Explant Pathology Pathologic Diagnosis A. [place] liver, orthotopic liver transplant resection (1458 gram): [...] up in 1 year. Daisha Max DO Server Programmer Gastroenterology, Hepatology and Nutrition [facility] Pager: [phone] Images from the original note were not included. 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 Associate Veterinarian: Anayeli Burt Date of Liver Transplant: 04/13/2020 (Kidney), 04/13/2020 (Liver) 4 years, 2 months post Liver/Kidney Transplant Primary Disease: Hypertensive Nephrosclerosis Transplant Spanish Tutor: Erma Roe/ Daisha Max Primary Care physician: [...] LAB AND PHARMACY: None Specified [id number] [place] [address] - [address] [facility] [address] [facility] [address] [facility] [address] [place] [address] [id number] [place] [address] [address] [facility] [address] [facility] [address] [facility] Outpatient Pharmacy Jakob [address], [address] [facility] [address] ROS and SCREEN: Chest Pain: negative Cough: [...] year: no Do you follow with a Data Capture Clerk? yes Do you have a Primary [...] PHYSICIAN: documented in this encounter [facility] 06-17-2024 Instructions Ashlee Fair RN - 06/17/2024 10:00 AM EDT - No medication changes from a liver standpoint - A MRI Abdomen has been ordered today. Please call central scheduling at [phone] to schedule or take paper copy to your local hospital - Return to clinic 06/16/2025 TRANSPLANT HEPATOLOGY 3, [facility] as scheduled documented in this encounter [facility] 06-17-2024 History of Present illness Narrative Images from the original note were not included. George Styles is a 54 y.o. 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 No longer follows with a local radio mechanic apprentice. History of Present Illness: Since George was [...] and lab results. Rebeca Gutierrez MSN, RN, INTERNATIONAL EXCHANGE COORDINATOR-BC, CCTN Certified Nurse Practitioner [facility] [address] [facility] [address] documented in this encounter [facility] 06-17[facility]2024 Instructions JEANNA Hess - 06/17/2024 9:30 AM EDT Tacrolimus - increase to 0.2 mg packet three time per day; goal 3 to 5 ng/dL ; when the itraconazole stops 09/03/2024, reduce to 0.5 mg twice daily. Once your tacrolimus level is 3-5 ng/dL, you may reduce labs to every other week. documented in this encounter [facility] 05-26-2024 History of Present illness Narrative [facility] RX OUTREACH ADVANCED: Call Information: Date and Time of Contact: 05/26/2024 4:35 PM Method of Contact: By Phone Contact Type: Prescriptions Contactor: [facility] OP Contactee: Patient Contact Outcome: Left message and Follow-up Contact Info: Specialty ([place]) [phone] Jakob [phone] [facility] [phone] David [phone] Bedside Delivery ([facility]) [phone] [facility] OP RX OUTREACH ADVANCED: Call Information: Date and Time of Contact: 05/30/2024 4:52 PM Method of Contact: By Phone Contact Type: Prescriptions Contactor: Patient Contactee: [facility] OP Shipping/Pickup: Medicare B Refill?: No Medication Name: Myco sod 360mg, Prograf 0.2mg Delivery Method: Ship Delivery Location: Home Signature Required: No Receive/Pickup Date: 06/06/2024 Shipping Address: [address] [place] [address] Contact Info: Specialty ([place]) [phone] Jakob [phone] [facility] [phone] David [phone] Bedside Delivery ([facility]) [phone] documented in this encounter [facility] 05-13-2024 Note [place] Cardiology - [facility] Subjective George [...] Prograf 0.2mg pack Contact Info: Specialty ([place]) [phone] [facility] [phone] [facility] [phone] David [phone] Bedside Delivery ([facility]) [phone] [facility] OP RX OUTREACH ADVANCED: Call Information: Date and Time of Contact: 03/28/2024 3:58 PM Method of Contact: By Phone Contact Type: Prescriptions Contactor: [facility] OP Contactee: Patient Contact Outcome: Left message and Call back later Shipping/Pickup: Medication Name: Mycophenolate, prograf Contact Info: Specialty ([place]) [phone] [facility] [phone] [facility] [phone] David [phone] Bedside Delivery ([facility]) [phone] [facility] OP RX OUTREACH ADVANCED: Call Information: Method of Contact: By Phone Contact Type: Prescriptions Contactor: Patient Contactee: [facility] OP Shipping/Pickup: Medicare B Refill?: No Medication Name: Mycopheolate 360mg and Prograf Delivery Method: Ship Delivery Location: Home Signature Required: No Receive/Pickup Date: 04/04/2024 Shipping Address: [address] [place] [address] [address] Contact Info: Specialty ([place]) [phone] [facility] [phone] [facility] [phone] David [phone] Bedside Delivery ([facility]) [phone] documented in this encounter [facility] 03-24-2024 History of Present illness Narrative [facility] OP RX OUTREACH ADVANCED: Call Information: Date and Time of Contact: 03/24/2024 4:14 PM Method of Contact: By Phone Contact Type: Prescriptions Contactor: [facility] OP Contactee: Patient Contact Outcome: Left message Shipping/Pickup: Medication Name: Prograf 0.2mg pack Contact Info: Specialty ([place]) [phone] [facility] [phone] [facility] [facility] [phone] David [phone] Bedside Delivery ([facility]) [phone] [facility] RX OUTREACH ADVANCED: Call Information: Date and Time of Contact: 03/28/2024 3:58 PM Method of Contact: By Phone Contact Type: Prescriptions Contactor: [facility] OP Contactee: Patient Contact Outcome: Left message and Call back later Shipping/Pickup: Medication Name: Mycophenolate, prograf Contact Info: Specialty ([place]) [phone] [facility] [phone] [facility] [phone] David [phone] Bedside Delivery ([facility]) [phone] [facility] OP RX OUTREACH ADVANCED: Call Information: Method of Contact: By Phone Contact Type: Prescriptions Contactor: Patient Contactee: [facility] OP Shipping/Pickup: Medicare B Refill?: No Medication Name: Mycopheolate 360mg and Prograf Delivery Method: Ship Delivery Location: Home Signature Required: No Receive/Pickup Date: 04/04/2024 Shipping Address: [address] [place] [address] [address] Contact Info: Specialty ([place]) [phone] Jakob [phone] [facility] [phone] David [phone] Bedside Delivery ([facility]) [phone] [facility] RX OUTREACH ADVANCED: Pre-Verification/Specialty Assessment/Disease [...] Within normal limits Contact Info: Specialty ([place]) [phone] Jakob [phone] [facility] [phone] [facility] [phone] Bedside Delivery ([facility]) [phone] [facility] History of Present illness Narrative [facility] [...] del of broth Contact Info: Specialty ([place]) [phone] [facility] [phone] [facility] [phone] David [phone] Bedside Delivery ([facility]) [phone] [facility] RX OUTREACH ADVANCED: Call Information: Date and Time of Contact: 03/02/2024 3:49 PM Method of Contact: By Phone Contact Type: Prescriptions Contactor: [facility] Contactee: Patient Contact Outcome: Left message and Follow-up Shipping/Pickup: Medication Name: Myco 360mg and Prograf 0.2mg Contact Info: Specialty ([place]) [phone] [facility] [phone] [facility] [phone] David [phone] Bedside Delivery ([facility]) [phone] [facility] RX OUTREACH ADVANCED: Call Information: Date and Time of Contact: 03/02/2024 4:08 PM Method of Contact: By Phone Contact Type: Prescriptions Contactor: [facility] OP Contactee: Patient Shipping/Pickup: Medicare B Refill?: No Medication Name: Myco 360 / prograf 0.2 Delivery Method: Ship Delivery Location: Home Signature Required: No Receive/Pickup Date: 03/03/2024 Shipping Address: [address] [place] [address] [address] Contact Info: Specialty ([place]) [phone] Jakob [phone] [facility] [phone] David [phone] Bedside Delivery ([facility]) [phone] documented in this encounter [facility] 02-26-2024 History of Present illness [...] presents to the HF Clinic at the [facility] on 02/26/2024 for initial evaluation of heart [...] Left; Surgeon: Jyoti Bryant MD, PhD; Location: [facility] MAIN OR PLACEMENT NEPHROSTOMY CATHETER PERCUTANEOUS W/ IMAGE GUIDANCE 05/17/2022 Surgeon: Enzo Heart DO; Location: [facility] INTERVENTIONAL RADIOLOGY (VIR) LIVER TRANSPLANT, ORTHOTOPIC N/A 04/12/2020 Laterality: N/A; Surgeon: LU Palma; Location: [facility] SAME DAY SURGERY MAIN OR KIDNEY TRANSPLANT W/O ALLAKAKET NEPHRECTOMY N/A 04/12/2020 Laterality: N/A; Surgeon: LU Palma; Location: [facility] SAME DAY SURGERY MAIN OR OTHER SURGICAL [...] qd Antithrombotic: no Statin: no ICD: NA CRYPTOLOGIC TECHNICIAN: NA CV Test results: ECHOCARDIOGRAM 01/18/2024 (Final) [...] CI 3.5 L/min/m2 TPG 9 mmHg PVR Ojhn 1.27 Wood units Impression: 1.) Elevated filling [...] will be BP control. Candie Almaguer M.D. manager life Advanced Heart Failure Program Division of Cardiovascular Medicine [facility] [email or web address] ph [phone] fax [phone] documented in this encounter [facility] 02-26-2024 Instructions Marsha Mckeon RN - 02/26/2024 9:30 AM EDT The following instructions were given today: Labs today Follow up with Dr. Almaguer as needed. Your after visit summary (AVS) is viewable in [facility] My Chart. Call RN if you have cardiac questions/concerns M-F 8 to 4:30 ; office # [phone], option 6, then option 2. Guidelines for home management: 1. Continue to monitor weight first thing each morning. 2. Report to the CHF CLINIC ([phone]) any significant weight change. Remember that weight [...] to have labs/tests run outside of the [facility] and you do not hear from us 1-2 days after they are performed, you must call us to ensure we received the results. Office fax # [phone]. No news does not necessarily mean that your tests are normal, it could mean we did not get the results. For questions/updates: please provide your name with spelling, date of and question or update All calls are prioritized and responses researched, if possible, prior to calls being returned. Call Scheduling for any appointment/procedure verification or changes [phone], option 7 or [facility] Heart Schedulers at [phone], option 1. documented in this encounter [facility] 01-23-2024 Nurse Note Jakob wrap & kerlix [...] home on home oxygen supply. [facility] 01-23-2024 Miscellaneous Notes Jakob wrap & kerlix [...] verbalization of pain descriptors George Feliz Jensen ([id number]) PRE OPERATIVE DIAGNOSIS High output congestive heart failure [I50.83] POST OPERATIVE DIAGNOSIS Post-Op Diagnosis Codes: * High output congestive heart failure [I50.83] PROCEDURE PERFORMED Procedure(s) (LRB): LIGATION ANGIOACCESS AVF (Left) Resection of large aneurysmic vein PRIMARY CLOSURE Yes INTRAOPERATIVE FINDINGS No significant abnormalities SURGEON Surgeons and Role: * Jyoti Bryant MD, PhD - Primary ANESTHESIOLOGIST Anesthesiologist: Celena Tiwari MD; Kehinde Gutierrez MD ASSEMBLYMAN OR WOMAN: David Jasso APRN-ASSEMBLYMAN OR WOMAN Combustion Engineer Assisting: Mini Khan MD SURGICAL STAFF Priming Machine Operator: Zoila Lawrence RN Relief Priming Machine Operator: Marimar Saravia RN Relief Scrub: Briseyda [...] Axillary block. SURGEON(S): Jyoti Bryant MD, PHD ATTENDANT CAMPGROUND: Mynor Fall MD ESTIMATED BLOOD LOSS: Minimal. [...] Jyoti Bryant MD, PHD ATTENDING SHANNON/Constanza JOB: [id number] DOC: [id number] Patient has been asleep this shift. He [...] overnight coverage, Jasper Gastelum MD, via pager #[phone] Pt- George Styles. Sarah 1082. TM1. Was wondering if he can have his Melatonin order increased to 6mg. Per pt, he usually takes 8mg at home. -SAMI Duffy #[phone] Tati Charles RN Internal Medicine Daily Progress Note Patient: George Styles, 1970, [id number] Physician: Arelis Mera MD, PGY3, Pager #[phone], TM1 service Assessment/Plan: George Styles is a [...] home amlodipine 5mg CAD: non-obstructive CAD on [facility] 2018. - continue home aspirin 81mg daily, [...] MD Mr. Styles was admitted to [address] [place] [address]. On admission to 0, from outside facility a dual RN initial assessment of skin condition was performed by Izzy Gutierrez RN and Leroy Singleton RN. Skin Assessment: Skin within defined limits:Yes Jose Score: 20 Wound Vision Prosecuting Attorney images obtained: No LDA Added: No Based [...] available. documented in this encounter [facility] 01-23-2024 Nurse Note Home Oxygen Qualification Patient: [...] of oxygen is also required.) [facility] 01-23-2024 History of Present illness Narrative BRIEF [...] mg Oral Daily Kelvin Pacheco MD, MBBS pharmacology professor Transplant nephrology Surgery Post-Op Check Note [...] monitor Leonel Harris DO General Surgery Pager [phone] CM went to bedside to talk with patient. Patient states he has home oxygen through [employer]. He uses 2.5 LNC around the clock. Patient states his brother will bring a tank for discharge. Anticipate patient will discharge tomorrow AM. Brother updated. Girish Oro RN, BSN Clinical Replenishment Buyer Please note that I am a float dependency case manager and may not cover the same service every day. Please call the main Case Management office at [phone] for up-to-date coverage. Verified patients identity using [...] Daily Progress Note Patient: George Styles, 1970, [id number] Physician: Yury Ozuna MD, PGY1, Pager #[phone], TM1 service Assessment/Plan: George Styles is a [...] with the Nutrition plan outlined in the Rfid Developer s note. DVT prophylaxis with lovenox [...] in resident note. Kelvin Pacheco MD, MBBS pharmacology professor Transplant nephrology Patient seen and examined [...] Oral BID AC Kelvin Pacheco MD, MBBS pharmacology professor Transplant nephrology Images from the original note were not included. Internal Medicine Daily Progress Note Patient: George Styles, 1970, [id number] Physician: Yury Ozuna MD, PGY1, Pager #[phone], TM1 service Assessment/Plan: George Styles is a [...] home amlodipine 5mg CAD: non-obstructive CAD on [facility] 2018. - continue home aspirin 81mg daily, [...] with the Nutrition plan outlined in the Rfid Developer s note. DVT prophylaxis with lovenox [...] Provider: Zuly Bruno NP Pharmacy: [facility] Other Comments: Patient reported his Last Home Dose of mycophenolate and tacrolimus was on 01/15/24 at 0700. Medications that need removed from Outside Medication Reconciliation list: Please remove all medications. Please feel free to contact me with any further questions. Name: Heidy Chatman Phone #: [phone] Date/Time: 01/19/2024 12:08 PM Time Spent: 15 minutes Associated attestation - Fidelina Alarcon RPH - 01/19/2024 12:41 PM EST Department of Pharmacy Admission Medication Reconciliation Note Patient: George Styles Room/Bed: 1082/A I have reviewed the home medication list with the Adjunct Mathematics Instructor. The home medication list status is: complete. All changes to the home medication list have been updated in IHIS. Updated MATERIALS DEVELOPMENT ENGINEER Med List: Prior to Admission Medications [...] any further questions. Name: Fidelina Ortiz Dorian, [facility] Phone #: [phone] Date/Time: 01/19/2024 12:41 PM Internal Medicine Daily Progress Note Patient: George Styles, 1970, [id number] Physician: Yury Ozuna MD, PGY1, Pager #[phone], SN3 service Assessment/Plan: Acute Hypoxic Respiratory Insufficiency GARCIA, [...] home amlodipine 5mg CAD: non-obstructive CAD on [facility] 2018. - continue home aspirin 81mg daily, [...] with the Nutrition plan outlined in the Rfid Developer s note. DVT prophylaxis with lovenox [...] mg Oral Daily Kelvin Pacheco MD, MBBS pharmacology professor Transplant nephrology Internal Medicine Daily Progress Note Patient: George Styles, 1970, [id number] Physician: Yury Ozuna MD, PGY1, Pager #[phone], TM1 service Assessment/Plan: Updates: - continued diuresis [...] home oxygen during the day. Reports 1w GACRIA, 1 month progressive JENSEN and abd distension. [...] home amlodipine 5mg CAD: non-obstructive CAD on [facility] 2018. - continue home aspirin 81mg daily, [...] with the Nutrition plan outlined in the Rfid Developer s note. DVT prophylaxis with lovenox [...] in resident note. Kelvin Pacheco MD, LU pharmacology professor Transplant nephrology Pt known to fixer supervisor from previous admissions. Provided emotional and spiritual support. Patient shared about: family support, medical course Social Studies Teacher provided: - Supportive presence - Active listening - Validation of feelings/emotions Patient encouraged to request a fixer supervisor as needed. Chaplains are available in-house 24 hours a day and 7 days a week. For urgent matters in [facility], please page [phone]. If the request is not urgent, please enter a consult. Consults are responded to within 24 hours. Senior Staff Social Studies Teacher Angie Singh Mdiv, [facility] [place] [phone] [email or web address] On-call TYLOR: call center specialist David: 22/06 Pager ,[facility], and [place] 1500 David Pager [phone] 01/18/24 1343 Clinical Encounter Type Visited With Patient Visit Type Introduction Pastoral Time Spent 15 min Referral Other (See Comment) (rounding) Spiritual Assessment Emotional Observation Coping well;Anxiety Hope Observation Specific hope focus Support Observation By Family Interventions Provided Active listening;Supportive presence Facilitated Verbalization of feelings;Identifying support system;Identifying Sources of spiritual well-being Explored Expectations;Treatment decisions Director Of Music Therapy Education Director Of Music Therapy Service Available Yes Educated Patient Outcomes Patient [...] interaction. Name: Fidelina Alarcon RPH Phone #: [phone] Date/Time: 01/18/2024 9:56 AM Discharge Planning Patient [...] Yes Name and Contact information: Gian Styles ([phone]) Would you like to add additional adult [...] oxygen?: Yes Oxygen Provider and Contact : [employer] Liter-Flow?: 20/01- Order for oxygen use?: unknown [...] patient on Anticoagulation? : No [id number] [place] [address] - [address] [facility] [address] [facility] [address] Ip Architect Does the patient or automobile rental representative express financial concerns? : No Employed?: Disabled Coping/Stress Concerns about patient s coping and stress?: No Concerns about patient s caregiver s coping and stress?: No Values and Beliefs Cultural or episcopal practices that may impact discharge planning and/or [...] Plan 1. Identified self and role as Replenishment Buyer. 2. Confirmed and updated demographics and treatment team. 3. Replenishment Buyer will continue to follow with medical team for any other additional discharge needs. Kasandra DON RN [facility] [phone] *Please note I am float CM and work Thursday and Thursday every other week. Please call [phone] for assist in my absence. Internal Medicine Daily Progress Note Patient: George Styles, 1970, [id number] Physician: Yury Ozuna MD, PGY1, Pager #[phone], TX4 service Assessment/Plan: Updates: - continue diuresis with [...] home amlodipine 5mg CAD: non-obstructive CAD on [facility] 2019. - continue home aspirin 81mg daily, [...] ordered 2D echo. Kevin Sage MD, SERA Server Programmer of Clinical Medicine [facility] documented in this encounter [facility] 01-23-2024 Plan of care note Patient has [...] Pain): verbalization of pain descriptors [facility] 01-22-2024 Hospital Discharge instructions Arelis Mera MD [...] your doctor for further instructions. Please call [phone], Option 1 or [phone] to schedule your appointment with the Heart Failure Clinic. Arelis Mera MD - 01/22/2024 3:08 PM EST You can change your dressing 48 hours from the procedure The following attachments cannot be sent through Care Everywhere.Heart Failure: Avoiding Triggers (Algerian)Heart Failure: Limiting Sodium (Algerian)Pain and Pain Control ([facility]) (Algerian)documented in this encounter [facility] 01-22-2024 Surgery Postoperative evaluation and management note George Styles ([id number]) PRE OPERATIVE DIAGNOSIS High output congestive heart failure [I50.83] POST OPERATIVE DIAGNOSIS Post-Op Diagnosis Codes: * High output congestive heart failure [I50.83] PROCEDURE PERFORMED Procedure(s) (LRB): LIGATION ANGIOACCESS AVF (Left) Resection of large aneurysmic vein PRIMARY CLOSURE Yes INTRAOPERATIVE FINDINGS No significant abnormalities SURGEON Surgeons and Role: * Jyoti Bryant MD, PhD - Primary ANESTHESIOLOGIST Anesthesiologist: Celena Tiwari MD; Kehinde Gutierrez MD ASSEMBLYMAN OR WOMAN: David Jasso APRN-ASSEMBLYMAN OR WOMAN Combustion Engineer Assisting: Mini Khan MD SURGICAL STAFF Priming Machine Operator: Zoila Lawrence RN Relief Priming Machine Operator: Marimar Saravia RN Relief Scrub: Briseyda Self Scrub Person: Cinda Mai RN Resident Assisting: Leonel Harris DO Fellow: Miki Mcgowan MD, MBBS COMPLICATIONS None ESTIMATED BLOOD LOSS Minimal SPECIMENS No specimen sent * No specimens in log * Jyoti Bryant MD, PhD January 22, 2024 1:34 PM [facility] Work Phone: 01-22-2024 Nurse Note [...] nocturnally. A&Ox4. Nerve block left arm, elevated. [facility] 01-22-2024 Surgery Postoperative evaluation and [...] Axillary block. SURGEON(S): Jyoti Bryant MD, PHD ATTENDANT CAMPGROUND: Mynor Fall MD ESTIMATED BLOOD LOSS: Minimal. [...] Jyoti Bryant MD, PHD ATTENDING SHANNON/Constanza JOB: [id number] DOC: [id number] [facility] 01-22-2024 Plan of care note [...] 1939 Plan Of Care Reviewed With: patient [facility] 01-20-2024 Consult note Associated Order (s): IP CONSULT TO SURGERY - TRANSPLANT (RENAL) Images from the original note were not included. TRANSPLANT SURGERY CONSULT NOTE: Consult: 01/20/2024, 4:03 PM Calker: Starla Morris MD Reason for Consult: Requesting Dr Carson Bryant for AVF revision/closure given new onset high output heart failure George Styles is a 53 y.o. male CURRENT HOSPITALIZATION LOS: Admit Date: 01/16/2024 [facility] Hospital LOS: 4 days George Styles [...] 04/12/2020 Laterality: N/A; Surgeon: LU Palma; Location: [facility] SAME DAY SURGERY MAIN OR KIDNEY TRANSPLANT W/O ALLAKAKET NEPHRECTOMY N/A 04/12/2020 Laterality: N/A; Surgeon: LU Palma; Location: [facility] SAME DAY SURGERY MAIN OR OTHER SURGICAL [...] seen and staffed with Dr. Mcgowan fellow combination machine tool setter Thank you, Starla Morris MD Associated attestation - Jyoti Bryant MD, PhD - 01/22/2024 10:54 AM EST I. Jyoti Bryant MD, PhD, have independently seen and examined the patient, reviewed the labs, discussed the patient with the fellow/resident and agree with the note. [facility] Work Phone: 01-20-2024 Consult note Associated Order (s): IP CONSULT TO SURGERY - TRANSPLANT (RENAL) Images from the original note were not included. TRANSPLANT SURGERY CONSULT NOTE: Consult: 01/20/2024, 4:03 PM Calker: Starla Morris MD Reason for Consult: Requesting Dr Carson Bryant for AVF revision/closure given new onset high output heart failure George Styles is a 53 y.o. male CURRENT HOSPITALIZATION LOS: Admit Date: 01/16/2024 [facility] Hospital LOS: 4 days George Styles [...] PERCUTANEOUS W/ IMAGE GUIDANCE 05/17/2022 Surgeon: Enzo Haert DO; Location: [facility] INTERVENTIONAL RADIOLOGY (VIR) LIVER TRANSPLANT, ORTHOTOPIC N/A 04/12/2020 Laterality: N/A; Surgeon: LU Palma; Location: [facility] SAME DAY SURGERY MAIN OR KIDNEY TRANSPLANT [...] Studies: Labs-CBC: WBC/Hgb/Hct/Plts: 3.79/12.5/38.9/166 (01/20 06) Labs-Chem 7([facility]): Bun/Creat/Cl/CO2/Glucose: [...] seen and staffed with Dr. Mcgowan fellow combination machine tool setter Thank you, Starla Morris MD Associated attestation - Jyoti Bryant MD, PhD - 01/22/2024 10:54 AM EST I. Jyoti Bryant MD, PhD, have independently seen and examined the patient, reviewed the labs, discussed the patient with the fellow/resident and agree with the note. Associated Order(s): IP CONSULT TO HEPATOBILIARY [facility] OS Main Hepatology Consult WebExchange --> IM Consult Serv [facility] --> [facility] Main Hepatology consult [...] GUIDANCE 05/17/2022 Surgeon: Enzo Heart DO; Location: [facility] INTERVENTIONAL RADIOLOGY (VIR) LIVER TRANSPLANT, ORTHOTOPIC N/A 04/12/2020 Laterality: N/A; Surgeon: LU Palma; Location: [facility] SAME DAY SURGERY MAIN OR KIDNEY TRANSPLANT W/O ALLAKAKET NEPHRECTOMY N/A 04/12/2020 Laterality: N/A; Surgeon: LU Palma; Location: [facility] SAME DAY SURGERY MAIN OR OTHER SURGICAL [...] (order for outpatient) Please SecureChat or Call ([phone]) for any questions. Await attending attestation for final recommendations. Hank Noel MD Division of Gastroenterology, Hepatology, and Nutrition Clinical Fellow, PGY-5 Pager: [phone] For urgent/stat calls or consults 5pm to 7am, please page the on-call GI fellow on QGenda. [facility]--> Internal Medicine--> Gastroenterology, Hepatology, & Nutrition--> 1st Call Janae Hatfield For urgent/stat calls or consults 7am to 5pm during the weekend, please page the on-call GI fellow on QGenda. [facility]--> Internal Medicine--> Gastroenterology, Hepatology, & Nutrition--> All Hep & East Wknd Cons For follow up questions regarding this patient 7am to 5pm during the weekday, contact the Hepatology consults fellow or CARLOS A on QGenda. [facility]--> Internal Medicine--> Gastroenterology, Hepatology, [...] MD, MSc documented in this encounter [facility] 01-19-2024 Nurse Note 01/19/24 0900 [...] rest, 95-96% when talking/moving. Paulette Cordon RN [facility] 01-19-2024 Nurse Note Paged overnight coverage, Jasper Gastelum MD, via pager #[phone] Pt- George Styles. Sarah 1082. TM1. Was wondering if he can have his Melatonin order increased to 6mg. Per pt, he usually takes 8mg at home. -SAMI Duffy #[phone] Tati Charles RN [facility] 01-18-2024 Consult note Associated Order (s): IP CONSULT TO HEPATOBILIARY [facility] Main Hepatology Consult WebExchange --> IM Consult Serv [facility] --> [facility] Main Hepatology consult service [...] 04/12/2020 Laterality: N/A; Surgeon: JOSH PalmaBS; Location: [facility] SAME DAY SURGERY MAIN OR KIDNEY TRANSPLANT W/O ALLAKAKET NEPHRECTOMY N/A 04/12/2020 Laterality: N/A; Surgeon: LU Palma; Location: [facility] SAME DAY SURGERY MAIN OR OTHER SURGICAL [...] (order for outpatient) Please SecureChat or Call ([phone]) for any questions. Await attending attestation for final recommendations. Hank Noel MD Division of Gastroenterology, Hepatology, and Nutrition Clinical Fellow, PGY-5 Pager: [phone] For urgent/stat calls or consults 5pm to 7am, please page the on-call GI fellow on EpicForce. [facility]--> Internal Medicine--> Gastroenterology, Hepatology, & Nutrition--> 1st Call Fel Alysia For urgent/stat calls or consults 7am to 5pm during the weekend, please page the on-call GI fellow on Zamzeea. [facility]--> Internal Medicine--> Gastroenterology, Hepatology, & Nutrition--> All Hep & East Wknd Cons Fel Day For follow up questions regarding this patient 7am to 5pm during the weekday, contact the Hepatology consults fellow or CARLOS A on EpicForce. [facility]--> Internal Medicine--> Gastroenterology, Hepatology, [...] (order for outpatient) Michael Estrada MD, MSc [facility] Work Phone: 01-16-2024 Plan of care note Internal Medicine Daily Progress Note Patient: George Styles, 1970, [id number] Physician: Arelis Mera MD, PGY3, Pager #[phone], TI2 service Assessment/Plan: George Styles is a 53 y.o. 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 Acute Hypoxic Respiratory Insufficiency GARCIA, Bilateral JENESN, R Pleural Effusion c/f Acute Heart Failure [...] home amlodipine 5mg CAD: non-obstructive CAD on [facility] 2018. - continue home aspirin 81mg daily, [...] MD, on rounds. Signed, Arelis Mera MD [facility] 01-16-2024 Nurse Note Mr. Styles was admitted to [address] [place] [address]. On admission to [facility], from outside facility a dual RN initial assessment of skin condition was performed by Izzy Gutierrez RN and Leroy Singleton RN. Skin Assessment: Skin within defined limits:Yes Jose Score: 20 Wound Vision Prosecuting Attorney images obtained: No LDA Added: No Based [...] room closest to nurses station when available. [facility] 01-16-2024 History and physical note Images from the original note were not included. Internal Medicine Admission History & Physical Patient: George Styles, 1970, [id number] Physician: Timothy Joseph MD, PGY1, Pager #[phone], TM 1 service Date of face to [...] 04/12/2020 Laterality: N/A; Surgeon: LU Palma; Location: [facility] SAME DAY SURGERY MAIN OR KIDNEY TRANSPLANT W/O ALLAKAKET NEPHRECTOMY N/A 04/12/2020 Laterality: N/A; Surgeon: LU Palma; Location: [facility] SAME DAY SURGERY MAIN OR OTHER SURGICAL [...] itraconazole Fax results to: Dr. White - [phone] Transplant Neph - [phone] Gabapentin 400 MG capsule Sig: Take 1 [...] erythema: Skin: No jaundice or rash Neuro: parachute cushion installer 3-7, 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 Strength grossly [...] home amlodipine 5mg CAD: non-obstructive CAD on [facility] 2018. - continue home aspirin 81mg daily Gout: continue home allopurinol 200mg daily BPH: continue home flomax 0.4mg daily Complexity. Obesity Body mass index is 32.8 kg/m . - Follow with PCP for dietary and lifestyle modifications. Any conditions listed below are present on admission unless otherwise specified. . DVT prophylaxis with lovenox Disposition: admitted to [facility] Code status is Full Staffed with Dr. [...] Pierson, Luisa Steven, Renee Rivera, Daisha Max Associate Veterinarian: José Miguel Garnica All Txt: 04/13/2020 (Kidney), [...] results found for: CYCLOSPORIN , CYCLOSPORIN2 , [id number] , CYCLORAND No results found for: SIROLIMUS [...] request in chart. Kevin Sage MD Pager [phone] [facility] 01-16-2024 History and physical note Images from the original note were not included. Internal Medicine Admission History & Physical Patient: George Styles, 1970, [id number] Physician: Timothy Joseph MD, PGY1, Pager #[phone], TM 1 service Date of face to [...] itraconazole Fax results to: Dr. White - [phone] Transplant Neph - [phone] Gabapentin 400 MG capsule Sig: Take 1 [...] erythema: Skin: No jaundice or rash Neuro: parachute cushion installer 3-7, 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 Strength grossly [...] home amlodipine 5mg CAD: non-obstructive CAD on [facility] 2018. - continue home aspirin 81mg daily Gout: continue home allopurinol 200mg daily BPH: continue home flomax 0.4mg daily Complexity. Obesity Body mass index is 32.8 kg/m . - Follow with PCP for dietary and lifestyle modifications. Any conditions listed below are present on admission unless otherwise specified. . DVT prophylaxis with lovenox Disposition: admitted to [facility] Code status is Full Staffed with Timothy [...] Pierson, Luisa Steven, Renee Rivera, Daisha Max Associate Veterinarian: José Miguel Garnica All Txt: 04/13/2020 (Kidney), [...] results found for: CYCLOSPORIN , CYCLOSPORIN2 , [id number] , CYCLORAND No results found for: SIROLIMUS [...] request in chart. Kevin Sage MD Pager [phone] documented in this encounter [facility] 01-12-2024 History of Present illness Narrative [facility] [...] Prograf 0.2 MG Contact Info: Specialty ([place]) [phone] Jakob [phone] [facility] [phone] David [phone] Bedside Delivery ([facility]) [phone] [facility] RX OUTREACH ADVANCED: Call Information: Date and Time of Contact: 01/25/2024 10:23 AM Method of Contact: By Phone Contact Type: Prescriptions Contactor: [facility] Contactee: Patient Contact Outcome: Left message (prograf myco) Contact Info: Specialty ([place]) [phone] [facility] [phone] [facility] [phone] [facility] [phone] Bedside Delivery ([facility]) [phone] documented in this encounter [facility] 01-12-2024 History of Present illness Narrative [facility] [...] Prograf 0.2 MG Contact Info: Specialty ([place]) [phone] [facility] [phone] [facility] [phone] [facility] [phone] Bedside Delivery ([facility]) [phone] [facility] RX OUTREACH ADVANCED: Call Information: Date and Time of Contact: 01/25/2024 10:23 AM Method of Contact: By Phone Contact Type: Prescriptions Contactor: [facility] Contactee: Patient Contact Outcome: Left message (prograf myco) Contact Info: Specialty ([place]) [phone] [facility] [phone] [facility] [phone] [facility] [phone] Bedside Delivery ([facility]) [phone] [facility] RX OUTREACH ADVANCED: Call Information: Date and Time of Contact: 01/27/2024 10:19 AM Method of Contact: By Phone Contact Type: Prescriptions Contactor: [facility] Contactee: Patient Contact Outcome: Left message (myco prograf) Contact Info: Specialty ([place]) [phone] [facility] [phone] [facility] [phone] David [phone] Bedside Delivery ([facility]) [phone] documented in this encounter [facility] 01-12-2024 History of Present illness Narrative [facility] [...] Prograf 0.2 MG Contact Info: Specialty ([place]) [phone] [facility] [phone] [facility] [phone] David [phone] Bedside Delivery ([facility]) [phone] [facility] RX OUTREACH ADVANCED: Call Information: Date and Time of Contact: 01/25/2024 10:23 AM Method of Contact: By Phone Contact Type: Prescriptions Contactor: [facility] Contactee: Patient Contact Outcome: Left message (prograf myco) Contact Info: Specialty ([place]) [phone] [facility] [phone] [facility] [phone] David [phone] Bedside Delivery ([facility]) [phone] [facility] RX OUTREACH ADVANCED: Call Information: Date and Time of Contact: 01/27/2024 10:19 AM Method of Contact: By Phone Contact Type: Prescriptions Contactor: [facility] Contactee: Patient Contact Outcome: Left message (myco prograf) Contact Info: Specialty ([place]) [phone] [facility] [phone] [facility] [phone] [facility] [phone] Bedside Delivery ([facility]) [phone] [facility] RX OUTREACH ADVANCED: Call Information: Date and Time of Contact: 02/01/2024 3:22 PM Contact Type: Prescriptions Contactor: [facility] Contactee: Patient Contact Outcome: Left message Shipping/Pickup: Medication Name: Mycophenolate 360mg and Prograf 0.2mg Pack Contact Info: Specialty ([place]) [phone] [facility] [phone] [facility] [phone] [facility] [phone] Bedside Delivery ([facility]) [phone] documented in this encounter [facility] 01-06-2024 History of Present illness [...] The neurologist wanted to send him to [facility] neurology but it is out [...] pt to see neurologist [facility] Immunocompromised ([facility]) Hypertension ([facility]) No change in [...] Prograf 0.2 MG Contact Info: Specialty ([place]) [phone] [facility] [phone] [facility] [phone] David [phone] Bedside Delivery ([facility]) [phone] [facility] RX OUTREACH ADVANCED: Call Information: Date and Time of Contact: 10/23/2023 2:00 PM Method of Contact: By Phone Contact Type: Prescriptions Contactor: [facility] Contactee: Patient Contact Outcome: Left message and Call back later Shipping/Pickup: Medication Name: Mycophenolate 360mg and Prograf 0.2mg Contact Info: Specialty ([place]) [phone] [facility] [phone] [facility] [phone] David [phone] Bedside Delivery ([facility]) [phone] documented in this encounter [facility] 09-11-2023 Miscellaneous Notes Pt discharged [...] oxygen during the night. pt will pick remover his oxygen from [employer], 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 This RN made [...] Patient seen ambulating in the velazquez with DEMO SPECIALIST. Patient was mildly short of breath on [...] right lower lung. Associated attestation - Crow iDaz MD - 09/04/2023 6:23 PM EDT PULMONARY [...] & HR 114. Messaged Mainor Loomis, via [employer] secure chat, Temp 100.8. His tylenol [...] short period of time. 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 Episode [...] Critical Care Medicine Message Mainor Loomis, via [employer] secure chat, Good evening, just an [...] Dr. Diaz. Attending attestation to follow. Bony Waetrs Interval History: George Styles is a 53 y.o. male with a history of liver and kidney transplant for hepatorenal syndrome on 03/2020 who presented on 08/28/2023 with 5 weeks of fever, cough, night sweats and weight loss. Pt reports that a few weeks before symptoms started had been working in the garden pulling weeds for a short period of time. 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 This [...] [address] Loera here also (fireworks assembler) Dr. Diaz aware of pt's increased oxygen [...] Medicine-Pediatrics, PGY-2 Mr. Styles was admitted to [address] [place] [address]. On admission to [facility], from home a [...] available. documented in this encounter [facility] 09-11-2023 History of Present illness Narrative Provided follow-up emotional and spiritual support. Patient shared about rosemary of discharge and looking forward to seeing family Social Studies Teacher provided: - Supportive presence - Active listening - Validation of feelings/emotions Patient encouraged to request a fixer supervisor as needed. Chaplains are available in-house 24 hours a day and 7 days a week. For urgent matters in [facility], please page [phone]. If the request is not urgent, please enter a consult. Consults are responded to within 24 hours. Senior Staff Social Studies Teacher Angie Singh Mdiv, [facility] [place] [phone] [email or web address] 22/06 On-call [place]: [phone] 22/06 Pager ,BS, and Brock 1500 David Pager [phone] 09/11/23 1430 Clinical Encounter Type Visited With Patient Visit Type Follow-up Pastoral Time Spent 15 min Referral Other (See Comment) (rounding) Spiritual Assessment Spiritual Observation Spirituality helpful Emotional Observation Coping well Hope Observation Specific hope focus Support Observation By Family Interventions Provided Active listening;Supportive presence Facilitated Verbalization of feelings Explored Expectations Director Of Music Therapy Education Director Of Music Therapy Service Available Yes Educated Patient Plan of Care Continue Visiting PRN Images from the original note were not included. [facility] Note: Non-Verbal Med Rec [facility] received the following discharge prescription(s): Total cost is $0. I have reviewed the Discharge Rx Reconciliation Report. The discharge prescription(s) will be delivered to the patient on 09/11/2023. Dimitrios Gurrola RPh,PharmD Specialty ([place]) [phone] [facility] [phone] [facility] Bedside Delivery [phone] [facility] [phone] [facility] Bedside Delivery [phone] David [phone] David Bedside Delivery [phone] [place] [phone] [facility] [phone] Internal Medicine Daily Progress Note Patient: George Styles, 1970, [id number] Physician: Evan Kelly MD, PGY-1, TM1 service Subjective/Interval History: Patient continues to require oxygen overnight for desaturations. With insurance limitations, only accepting agency to provide home oxygen backed out. After calling them to discuss, Lynn stated she would be willing to have patient drive to their facility to pick remover supplies, however they close at 5pm. 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 His [place] kidney disease was noted to be [...] losartan 50mg BID CAD: non-obstructive CAD on [facility] 2019. - continue home aspirin 81mg daily, [...] 5.05 (H) 11/19/2018 Kevin Sage MD, SERA Server Programmer of Clinical Medicine [facility] Images from the [...] Preferred [employer] [address] [address] [phone] Internal Comment last updated by Lora Lawrence RN 09/10/2023 1334 Correct contact information: [facility] [address] [place] [address] [place] [address] temperature logging operator- you do not need to call at discharge, I already notified the company. Addendum [phone] [facility] notified this CM they are out of patient's insurance area and will not be able to service this patient at time of discharge. Provider notified. Addendum [phone] Dr Kelly called [facility] spoke to Lynn and she said they are willing to accept patient if the patient would drive to the [place] office and pick remover the supplies. 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 for O2 concentrator to 4 agencies Start date today Timer set for 1330 [employer] [facility] [employer] Addendum 1332 One accepting company reserved in [employer] [address] [place] [address] [place] [address] Lora Colón RN, MSN, CCM, CMCN Clinical Replenishment Buyer- [facility] Transplant #[phone] NUTRITION FOLLOW-UP Nutrition Plan of Care: 1. Continue current diet order. 2. No oral supplements warranted at this time. 3. Monitor for significant weight changes. Monitor GI, skin integrity. 4. Monitor and encourage po intakes with goal of average po being 75-100%. 5. time study technician to follow. ___ Met with patient [...] time. Will continue to monitor. RHIANNON BirminghamR Pager:[phone] Transplant Infectious Disease (Team 3) Progress Note [...] sign off. Please Epic message or page [phone] with questions. Evan White DO Transplant Infectious Diseases Internal Medicine Daily Progress Note Patient: George Styles, 1970, [id number] Physician: Evan Kelly MD, PGY-1, TM1 service [...] s/p combined Liver-kidney transplant on 04/13/20. His [place] kidney disease was noted to be [...] losartan 50mg BID CAD: non-obstructive CAD on [facility] 2019. - continue home aspirin 81mg daily, [...] to follow. Please Epic message or page [phone] with questions. Evan White DO Transplant Infectious Diseases Internal Medicine Daily Progress Note Patient: George Styles, 1970, [id number] Physician: Laurel Serrano MD, PhD, PGY-3, TM1 [...] s/p combined Liver-kidney transplant on 04/13/20. His [place] kidney disease was noted to be [...] losartan 50mg BID CAD: non-obstructive CAD on [facility] 2019. - continue home aspirin 81mg daily, holding atorvastatin 20mg daily Gout: continue home allopurinol 200mg daily BPH: continue home flomax 0.4mg daily DVT PPX: SQH Code Status: Full Code Disposition: Pending clinical course. Anticipate eventual discharge home. Discussed with team and attending, Kevin Sage MD, on rounds. Signed, Laurel Serrano MD, PhD Internal Medicine Daily Progress Note Patient: George Styles, 1970, [id number] Physician: Evan Kelly MD, PGY-1, TM1 service [...] s/p combined Liver-kidney transplant on 04/13/20. His [place] kidney disease was noted to be [...] losartan 50mg BID CAD: non-obstructive CAD on [facility] 2019. - continue home aspirin 81mg daily, [...] 5.05 (H) 11/19/2018 Kevin Sage MD, SERA Server Programmer of Clinical Medicine [facility] Transplant Infectious Disease [...] to follow. Please Epic message or page [phone] with questions. Ann Marie Haskins MD PGY-4, [...] he continues to improve. Please message via [employer] secure chat or page with any questions or concerns. Evan White DO Server Programmer Division of Infectious Disease Transplant Infectious Disease [...] to follow. Please Epic message or page [phone] with questions. Evan White DO Transplant Infectious Diseases Images from the original note were not included. Pulmonary/Critical Care Medicine Daily Progress Note Reason for Consultation: bronch for infectious workup Requesting Physician: Dr. Sage CURRENT HOSPITALIZATION: Admit Date: 08/28/2023 [facility] Hospital LOS: 9 days Impression 1. [...] and interpreted reviewed the radiographic data in [facility]. Internal Medicine Daily Progress Note Patient: George Styles, 1970, [id number] Physician: Evan Kelly MD, PGY-1, TM1 service [...] s/p combined Liver-kidney transplant on 04/13/20. His [place] kidney disease was noted to be [...] losartan 50mg BID CAD: non-obstructive CAD on [facility] 2018. - continue home aspirin 81mg daily, [...] 5.05 (H) 11/19/2018 Kevin Sage MD, SERA Server Programmer of Clinical Medicine [facility] Images from the original note were not included. Pulmonary/Critical Care Medicine Daily Progress Note Reason for Consultation: bronch for infectious workup Requesting Physician: Dr. Sage CURRENT HOSPITALIZATION: Admit Date: 08/28/2023 [facility] Hospital LOS: 8 days Impression 1. [...] and interpreted reviewed the radiographic data [facility]. Acute Occupational Therapy Evaluation Prior [...] Assessment: Transfer Assessment: Sit to Stand Transfer Ramer Level: Sit->Stand: independent Skilled Intervention/Details: Sit->Stand: x1 from EOB, x1 from toilet Stand to Sit Transfer Ramer Level: Stand->Sit: independent Skilled Intervention/Details: Stand->Sit: x1 to toilet, x1 to EOB Functional Mobility: Functional Mobility Ramer Level: Functional Mobility/Gait: independent Ambulation Distance (Feet): 20 Skilled Intervention/Details - Functional Mobility/Gait: pt performed functional mobility to/from RR w/ no overt LOB Outcome Score(s): CURRENT [facility] Daily Activity Inpatient Short Form Putting on/Taking Off Lower Body Clothin - A Little Assistance Bathin - A Little Assistance Toiletin - A Little Assistance Putting on/Taking Off Upper Body Clothin - No Assistance Groomin - No Assistance Eatin - No Assistance CURRENT [facility] Activity Raw Score: 21 CURRENT [facility] Activity Functional Limitation/Modifier: 32.79% Currently Impaired in [...] Intact Mobility Assessment: Supine to Sit Mobility Ramer Level: Supine->Sit: modified independence Bed Features/Set-up: Supine->Sit: Head of bed elevated Sit to Supine Mobility Ramer Level: Sit->Supine: not tested Balance: Sitting Balance [...] environment. Transfer Assessment: Sit to Stand Transfer Ramer Level: Sit->Stand: independent Skilled Intervention/Details: Sit->Stand: From EOB x 2 without difficulty. Stand to Sit Transfer Ramer Level: Stand->Sit: independent Assistive Device: Stand->Sit: armed chair Skilled Rationale: Verbal cues, Positioning Gait/Functional Mobility: Gait Assessment Ramer Level: Gait: stand-by assist Assistive Device: Gait: rollator Ambulation Distance (Feet): 400 Gait Deviations Identified: decreased grace, decreased gait speed Gait Skilled Rationale: verbal, upright posture, increase step length, increase foot clearance Skilled Intervention/Details - Gait: Reasonable foot clearnce without loss of balance but endorsing dyspnea as 6-7/10. Stairs: Stairs Assessment Ramer Level: Stair Negotiation: not tested Outcome Score(s): CURRENT [facility] Basic Mobility Inpatient Short Form Turning over in bed: 4 - No Assistance Sitting/standing from chair: 4 - No Assistance Moving from lying on back to sittin - No Assistance Moving to and from bed to chair: 3 - A Little Assistance Walk in hospital room: 3 - A Little Assistance Climbing 3-5 steps with a railin - A Little Assistance CURRENT [facility] Mobility Raw Score: 21 CURRENT [facility] Mobility Functional Limitation/Modifier: 28.97% Currently Impaired in [...] (Low) Time Entry: 28 Evaluating Therapist: David Sutheralnd PT Additional Details: PT Co-Eval/Treatment Information Co-evaluation/co-treatment [...] Daily Progress Note Patient: George Styles, 1970, [id number] Physician: Evan Kelly MD, PGY-1, TM1 service [...] s/p combined Liver-kidney transplant on 04/13/20. His [place] kidney disease was noted to be [...] losartan 50mg BID CAD: non-obstructive CAD on [facility] 2019. - continue home aspirin 81mg daily, [...] 5.05 (H) 11/19/2018 Kevin Sage MD, MADISONN Server Programmer of Clinical Medicine [facility] Transplant Infectious Disease [...] to follow. Please Epic message or page [phone] with questions. Evan White DO Transplant Infectious Diseases Images from the original note were not included. Internal Medicine Daily Progress Note Patient: George Styles, 1970, [id number] Physician: Evan Kelly MD, PGY-1, TM1 service [...] s/p combined Liver-kidney transplant on 04/13/20. His [place] kidney disease was noted to be [...] losartan 50mg BID CAD: non-obstructive CAD on [facility] 2018. - continue home aspirin 81mg daily, [...] P 450 system Kevin Sage MD, SERA Server Programmer of Clinical Medicine [facility] ERT Note: [...] MD, PhD Internal Medicine and Pediatrics PGY-3 [facility] Brief plan of care update: Called to [...] MD, PhD Internal Medicine and Pediatrics PGY-3 [facility] Transplant Infectious Disease (Team 3) Progress Note [...] to follow. Please Epic message or page [phone] with questions. Evan White DO Transplant Infectious Diseases Internal Medicine Daily Progress Note Patient: George Styles, 1970, [id number] Physician: Evan Kelly MD, PGY-1, TM1 service [...] s/p combined Liver-kidney transplant on 04/13/20. His [place] kidney disease was noted to be [...] 2/2 renal function CAD: non-obstructive CAD on [facility] 2018. - continue home aspirin 81mg daily, [...] 5.05 (H) 11/19/2018 Kevin Sage MD, FASN Server Programmer of Clinical Medicine [facility] Internal Medicine Daily Progress Note Patient: George Styles, 1970, [id number] Physician: Evan Kelly MD, PGY-1, TM1 service [...] s/p combined Liver-kidney transplant on 04/13/20. His [place] kidney disease was noted to be [...] 2/2 renal function CAD: non-obstructive CAD on [facility] 2018. - continue home aspirin 81mg daily, [...] 5.05 (H) 11/19/2018 Kevin Sage MD, SERA Server Programmer of Clinical Medicine [facility] [facility] Progression of Care [...] Lora Colón RN, MSN, CCM, CMCN Clinical Replenishment Buyer- R10 Transplant #[phone] Made introductory visit with patient. Provided emotional and spiritual support. Patient shared about: - Source of Rosemary: Camping/Fishing/Family - Spirituality/Confucianism Affiliation: raised Shinto - Family Support/history - Experience with illness/hospital course - Hopes for healing/future Social Studies Teacher provided: - Supportive presence - Active listening - Validation of feelings/emotions - Pledged prayer Patient encouraged to request a fixer supervisor as needed. Chaplains are available in-house 24 hours a day and 7 days a week. For urgent matters in [facility], please page [phone]. If the request is not urgent, please enter a consult. Consults are responded to within 24 hours. Senior Staff Social Studies Teacherdakota Singh Mdiv, [facility] [place] [phone] [email or web address] 22/06 On-call Kirk: [phone] 22/06 Pager ,[facility], and Brock Maciel Pager [phone] 09/02/23 111 Clinical Encounter Type Visited With Patient Visit Type Introduction Pastoral Time Spent 15 min Referral Other (See Comment) (rounding) Spiritual Assessment Spiritual Observation Spirituality helpful Emotional Observation Coping well Hope Observation Specific hope focus Support Observation By Family Interventions Provided Active listening;Supportive presence Facilitated Verbalization of feelings Explored Expectations Director Of Music Therapy Education Director Of Music Therapy Service Available Yes Educated Patient Outcomes Patient Outcomes Reduced distress Plan of Care Continue Visiting PRN NUTRITION RISK SCREENING NOTE Nutrition Plan of Care: 1. Continue current diet order. 2. No oral supplements warranted at this time. 3. Monitor for significant weight changes. Monitor GI and skin integrity. 4. Monitor and encourage po intakes with goal of average po being 100%. 5. time study technician to follow. George Styles is a 53 y.o. 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 His [place] kidney disease was noted to be presumed hepatorenal syndrome. His post-transplant course was noteworthy for nephrostomy tube (05/17/2022-09/10/2022) due to concern for ureteral stone. He presents as a direct admission for fever, cough, for infectious workup. Pt unavailable and information obtained via chart review Tinning Equipment Tender Screening Pt's appetite is good. Pt with [...] with meds Food Allergies reviewed:Shellfish Cultural or Confucianism Restrictions/Preferences: None GI: Last Bowel Movement: 09/01/23 [...] time. Will continue to monitor. RHIANNON BirminghamR Pager:[phone] Internal Medicine Daily Progress Note Patient: George Styles, 1970, [id number] Physician: Evan Kelly MD, PGY-1, TM1 service [...] s/p combined Liver-kidney transplant on 04/13/20. His [place] kidney disease was noted to be [...] / renal function CAD: non-obstructive CAD on [facility] 2018. - continue home aspirin 81mg daily, [...] as outlined above. Kevin Sage MD Pager [phone] Summary: Pharmacy Med Rec Department of Pharmacy [...] further questions. Name: Heidy Chatman Phone #: [phone] Date/Time: 09/01/2023 2:01 PM Time Spent: 15 minutes Associated attestation - Matt Kramer RPh,PharmJenna - 09/01/2023 2:28 PM EDT Department of Pharmacy Admission Medication Reconciliation Note Patient: George Styles Room/Bed: 1062/A I have reviewed the home medication list with the Adjunct Mathematics Instructor. All changes to the home medication list have been updated in IHIS. Updated MATERIALS DEVELOPMENT ENGINEER Med List: Prior to Admission Medications [...] questions. Name: Matt Kramer lydia,PharmD Phone #: [phone] Date/Time: 09/01/2023 2:28 PM Transplant Infectious Disease [...] to follow. Please Epic message or page [phone] with questions. Evan White DO Transplant Infectious Diseases Internal Medicine Daily Progress Note Patient: George Styles, 1970, [id number] Physician: Evan Kelly MD, PGY-1, TM1 service [...] s/p combined Liver-kidney transplant on 04/13/20. His [place] kidney disease was noted to be [...] 2/2 renal function CAD: non-obstructive CAD on [facility] 2018. - continue home aspirin 81mg daily, [...] CREATSERUM 5.05 (H) 11/19/2018 Kevin Sage MD, [facility]MARY[facility] Server Programmer of Clinical Medicine [facility] Discharge Planning Patient [...] Yes Name and Contact information: Gian Styles ([phone]) Reviewed and Updated in Demographics? : Yes [...] patient on Anticoagulation? : No [id number] [place] [address] - [address] [facility] [address] [facility] [address] Ip Architect Does the patient or automobile rental representative express financial concerns? : No Employed?: Disabled Coping/Stress Concerns about patient s coping and stress?: No Concerns about patient s caregiver s coping and stress?: No Values and Beliefs Cultural or episcopal practices that may impact discharge planning and/or [...] Plan 1. Identified self and role as Replenishment Buyer. 2. Confirmed and updated demographics and treatment team. 3. Replenishment Buyer will continue to follow with medical team/pt for any other additional discharge needs. Kasandra DON RN [facility] [phone] *Please note I am float CM and work Thursday and Thursday every other week. Please call [phone] for assist in my absence. Internal Medicine Daily Progress Note Patient: George Styles, 1970, [id number] Physician: Evan Kelly MD, PGY-1, TM1 service [...] s/p combined Liver-kidney transplant on 04/13/20. His [place] kidney disease was noted to be [...] 2/2 renal function CAD: non-obstructive CAD on [facility] 2018. - continue home aspirin 81mg daily, [...] 5.05 (H) 11/19/2018 Kevin Sage MD, SERA Server Programmer of Clinical Medicine [facility] Internal Medicine Daily Progress Note Patient: George Styles, 1970, [id number] Physician: Laurel Serrano MD, PhD, PGY-3, TM1 [...] s/p combined Liver-kidney transplant on 04/13/20. His [place] kidney disease was noted to be [...] losartan 50mg BID CAD: non-obstructive CAD on [facility] 2018. - continue home aspirin 81mg daily, atorvastatin 20mg daily Gout: continue home allopurinol 200mg daily BPH: continue home flomax 0.4mg daily DVT PPX: SQH Code Status: Full Code Disposition: Pending clinical course. Anticipate eventual discharge home. Discussed with team and attending, Kevin Sage MD, on rounds. Signed, Laurel Serrano MD, PhD documented in this encounter [facility] 09-10-2023 Hospital Discharge instructions Laurel [...] sleep doctor. You will need to pick remover the oxygen concentrator when you leave the [...] healthy foods. documented in this encounter [facility] 09-01-2023 Consult note Associated Order (s): IP CONSULT TO PULMONOLOGY Pulmonary Medicine Inpatient Consultation Reason for Consultation: bronch for infectious workup Requesting Physician: Dr. Sage Pulmonary Attending Physician: Dr. Diaz CURRENT HOSPITALIZATION: Admit Date: 08/28/2023 [facility] Hospital LOS: 4 days Impression/Recommendations: George [...] Recommendations: - Plan to bronch tomorrow morning. NPO@PR, order placed - would repeat HIV, last [...] short period of time. 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 Other histories as documented in [...] had any ill contacts. He traveled to [place] to [facility] in May. [...] 04/12/2020 Laterality: N/A; Surgeon: LU Palma; Location: [facility] SAME DAY SURGERY MAIN OR OTHER SURGICAL [...] Alamo MD I can be reached via [employer] message (Hiri) or Pager #[phone] documented in this encounter [facility] 08-28-2023 History and physical note Images from the original note were not included. Internal Medicine Admission History & Physical Patient: George Styles, 1970, [id number] Physician: Aric Turner MD, PGY1, Pager #[phone], TM service Date of face to face [...] So he went to see the transplant radio mechanic apprentice. He was found elevated Cr and asked [...] Appetite is ok now. Urine is about 5916-9110 ml every day. Stool every day, no [...] GUIDANCE 05/17/2022 Surgeon: Enzo Heart DO; Location: [facility] INTERVENTIONAL RADIOLOGY (VIR) LIVER TRANSPLANT, ORTHOTOPIC N/A 04/12/2020 Laterality: N/A; Surgeon: LU Palma; Location: [facility] SAME DAY SURGERY MAIN OR KIDNEY TRANSPLANT W/O ALLAKAKET NEPHRECTOMY N/A 04/12/2020 Laterality: N/A; Surgeon: LU Palma; Location: [facility] SAME DAY SURGERY MAIN OR OTHER SURGICAL [...] s/p combined Liver-kidney transplant on 04/13/20. His [place] kidney disease was noted to be [...] Urinary histoplasmosis - PJP, candid PCR - [place] transplant ID Acute Kidney Injury with Kidney [...] losartan 50mg BID CAD: non-obstructive CAD on [facility] 2019. - continue aspirin 81mg daily, atorvastatin [...] Pierson, Luisa Steven, Renee Rivera, Daisha Max Associate Veterinarian: José Miguel Garnica All Txt: 04/13/2020 (Kidney), [...] results found for: CYCLOSPORIN , CYCLOSPORIN2 , [id number] , CYCLORAND No results found for: SIROLIMUS [...] Rest as above. Kevin Sage MD Pager [phone] documented in this encounter [facility] 08-28-2023 History of Present illness Narrative Images from the original note were not included. 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 Associate Veterinarian: Anayeli Burt Date of Liver Transplant: 04/13/2020 (Kidney), 04/13/2020 (Liver) 3 years 4 months post Liver/Kidney Transplant Primary Disease: Hypertensive Nephrosclerosis Transplant Spanish Tutor: Erma Roe/ Daisha Max Primary Care physician: [...] None Specified, [id number] [place] [address] - [address] [facility] [address] [facility] [address] [facility] [address] [facility] [facility] [address] [facility][id number] [place] [address] [address] [facility] [address] [facility] [address] [facility] [address], [place] [address] [facility] [address] ROS and SCREEN: Chest Pain: negative Cough: [...] PHYSICIAN: I saw George Styles at the [facility] on 08/28/2023. Patient is a 53 y.o. 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 His [place] kidney disease was noted to be [...] GUIDANCE 05/17/2022 Surgeon: Enzo Heart DO; Location: [facility] INTERVENTIONAL RADIOLOGY (VIR) LIVER TRANSPLANT, ORTHOTOPIC N/A 04/12/2020 Laterality: N/A; Surgeon: LU Palma; Location: [facility] SAME DAY SURGERY MAIN OR KIDNEY TRANSPLANT W/O ALLAKAKET NEPHRECTOMY N/A 04/12/2020 Laterality: N/A; Surgeon: LU Palma; Location: [facility] SAME DAY SURGERY MAIN OR OTHER SURGICAL [...] you have any questions. Steve Latham MD cut off operator scorer Division of Nephrology [facility] documented in this encounter [facility] 08-28-2023 Instructions Mainor Busby RN - 08/28/2023 2:15 PM EDT - Admission for fevers, cough, and night sweats documented in this encounter [facility] 08-19-2023 History of Present illness Narrative [facility] OUTREACH ADVANCED: Call Information: Date and Time of Contact: 08/19/2023 2:52 PM Method of Contact: By Phone Contact Type: Prescriptions Contactor: [facility] OP Contactee: Patient Shipping/Pickup: Medicare B Refill?: No Medication Name: Tacro 0.5mg Delivery Method: Air Delivery Location: Home Signature Required: No Mailing/Pickup Date: 08/25/2023 Shipping Address: [address] [place] [address] [address] Contact Info: Specialty ([place]) [phone] Jakob [phone] [facility] [phone] David [phone] Bedside Delivery ([facility]) [phone] documented in this encounter [facility] 06-12-2023 History of Present illness Narrative Images from the original note were not included. George Styles is a 53 y.o. 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 No longer follows with a local radio mechanic apprentice. History of Present Illness: Since George was [...] and lab results. Rebeca Gutierrez MSN, RN, INTERNATIONAL EXCHANGE COORDINATOR-BC, CCTN Certified Nurse Practitioner [facility] [address] [facility] [address] documented in this encounter [facility] 06-12-2023 Instructions JEANNA Hess - 06/12/2023 3:00 PM EDT No change in immunosuppression. documented in this encounter [facility] 06-10-2023 History of Present illness Narrative [facility]REACH AD[facility]ANCED: Call Information: Method of Contact: By Phone Contact Type: Prescriptions Contactor: [facility] OP Contactee: Patient Contact Outcome: Left message Shipping/Pickup: Medication Name: Mycophenolate sod 180 mg Contact Info: Specialty ([place]) [phone] Jak[place] [phone] [facility] [phone] David [phone] Bedside Delivery ([facility]) [phone] [facility] RX OUTREACH ADVANCED: Call Information: Date and Time of Contact: 06/12/2023 9:43 AM Method of Contact: By Phone Contact Type: Prescriptions Contactor: [facility] OP Contactee: Patient Contact Outcome: Left message and Follow-up Shipping/Pickup: Medicare B Refill?: No Medication Name: Myco 180 Contact Info: Specialty ([place]) [phone] Jakob [phone] [facility] [phone] David [phone] Bedside Delivery ([facility]) [phone] [facility] RX OUTREACH ADVANCED: Call Information: Date and Time of Contact: 06/12/2023 10:08 AM Method of Contact: By Phone Contact Type: Prescriptions Contactor: [facility] OP Contactee: Patient Shipping/Pickup: Medicare B Refill?: No Medication Name: Mycophenolate 180mg DR Delivery Method: Air Delivery Location: Home Signature Required: No Mailing/Pickup Date: 06/17/2023 Shipping Address: [address] [address] Contact Info: Specialty ([place]) [phone] Jakob [phone] [facility] [phone] David [phone] Bedside Delivery ([facility]) [phone] documented in this encounter [facility] 03-12-2023 [...] Required: No Mailing/Pickup Date: 03/16/2023 Shipping Address: [address] [place] [address] Contact Info: Specialty ([place]) [phone] Jakob [phone] [facility] [phone] David [phone] Bedside Delivery ([facility]) [phone] [facility] RX OUTREACH ADVANCED: Call Information: [...] No Mailing/Pickup Date: 03/19/2023 Shipping Address: [address] [place] [address] [address] Contact Info: Specialty ([place]) [phone] [facility] [phone] [facility] [phone] David [phone] Bedside Delivery ([facility]) [phone] documented in this encounter [facility] 03-10-2023 History of Present illness Narrative [facility] RX OUTREACH ADVANCED: Call Information: Date and Time of Contact: 03/10/2023 12:00 PM Method of Contact: By Phone Contact Type: Prescriptions Contactor: [facility] OP Contactee: Patient Contact Outcome: Left message and Call back later Shipping/Pickup: Medication Name: Mycophenolate ; Tacrolimus Contact Info: Specialty ([place]) [phone] [facility] [phone] [facility] [phone] David [phone] Bedside Delivery ([facility]) [phone] documented in this encounter [facility] 03-10-2023 History of Present illness Narrative [facility] RX OUTREACH ADVANCED: Call Information: Date and Time of Contact: 03/10/2023 12:00 PM Method of Contact: By Phone Contact Type: Prescriptions Contactor: [facility] OP Contactee: Patient Contact Outcome: Left message and Call back later Shipping/Pickup: Medication Name: Mycophenolate ; Tacrolimus Contact Info: Specialty ([place]) [phone] [facility] [phone] [facility] [phone] David [phone] Bedside Delivery ([facility]) [phone] [facility] OP RX OUTREACH ADVANCED: Call Information: Date and Time of Contact: 03/12/2023 10:32 AM Method of Contact: By Phone Contact Type: Prescriptions Contactor: [facility] OP Contactee: Patient Contact Outcome: Left message Shipping/Pickup: Medication Name: Mycophenolate sodium (MYFORTIC) 180 MG Tab tacrolimus 0.5 mg Contact Info: Specialty ([place]) [phone] [facility] [phone] [facility] [phone] [facility] [phone] Bedside Delivery ([facility]) [phone] documented in this encounter [facility] 01-16-2023 History of Present illness Narrative -Referring Provider for today's consult: Daisha Max DO -Primary Care Provider: Zuly Bruno History of Present Illness George Styles is a 52 y.o. male who presents [facility] the [facility] Transplant Hepatology Clinic today [...] GUIDANCE 05/17/2022 Surgeon: Enzo Heart DO; Location: [facility] INTERVENTIONAL RADIOLOGY (VIR) LIVER TRANSPLANT, ORTHOTOPIC N/A 04/12/2020 Laterality: N/A; Surgeon: LU Palma; Location: [facility] SAME DAY SURGERY MAIN OR KIDNEY TRANSPLANT W/O ALLAKAKET NEPHRECTOMY N/A 04/12/2020 Laterality: N/A; Surgeon: LU Palma; Location: [facility] SAME DAY SURGERY MAIN OR OTHER SURGICAL [...] 0.3 12/29/2022 Explant Pathology Pathologic Diagnosis A. [place] liver, orthotopic liver transplant resection (1458 gram): [...] A/P with IV contrast (06/27/2022): 1. Both [place] kidneys are atrophic with improvement in [...] frequent nighttime urination, etc). Daisha Max DO Server Programmer Gastroenterology, Hepatology and Nutrition [facility] Pager: [phone] Images from the original note were not included. 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 Associate Veterinarian: Anayeli Burt Date of Liver Transplant: 04/13/2020 (Kidney), 04/13/2020 (Liver) 2 years, 8 months post Liver/Kidney Transplant Primary Disease: Hypertensive Nephrosclerosis Transplant Spanish Tutor: Steve Latham Primary Care physician: Zuly Bruno [...] levels: No results found for: CYCLOSPORIN, CYCLOSPORIN2, [id number], CYCLORAND No components found for: CYCLOSPORINE, 2HR [...] hours. ADDITIONAL INFORMATION: None Specified [id number] [place] [address] - [address] [facility] [address] [facility] [address] [facility] [address] [facility] [address] [id number] [place] [address] [address] [facility] [address] [facility] [address] [facility] [address], [address] [facility] [address] ROS and SCREEN: Chest Pain: negative Cough: [...] PHYSICIAN: documented in this encounter [facility] 01-16-2023 Instructions José Miguel Garnica RN - 01/16/2023 9:40 AM EST - Labs Every 2 months - Discuss night time urination with your PCP - Schedule Colonoscopy through PCP - Follow up in 1 year documented in this encounter [facility] 09-10-2022 History of Present illness Narrative UROLOGY [...] and no hydronephrosis. Some reflux up the [place] right ureter but good drainage of both transplant and [place] ureter to the bladder. Nephrostomy tube [...] transplant, orthotopic (N/A, 04/12/2020); kidney transplant w/o [place] nephrectomy (N/A, 04/12/2020); and placement nephrostomy [...] Negative for , diarrhea, constipation Genitourinary: See ROSEBUD Neurological: Negative for headaches. Lymph/Heme: Negative for [...] x 4, Normal strength. No edema. Skin: [place], warm, and dry. There are no rashes [...] and no hydronephrosis. Some reflux up the [place] right ureter but good drainage of both transplant and [place] ureter to the bladder. Nephrostomy tube [...] MD 09/10/22 documented in this encounter [facility] 07-07-2022 History of Present illness [...] off the table and escorted to reception interviewer where they made a follow up. 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 Nephrostomy tube placed 05/17/22 due [...] to have transplant ureter with anastomosis to [place] right ureter. Nephrostogram without filling defects and no hydronephrosis. Some reflux up the [place] right ureter but good drainage of both transplant and [place] ureter to the bladder. Nephrostomy tube [...] MD 07/07/22 documented in this encounter [facility] 06-27-2022 History of Present illness [...] transplant, orthotopic (N/A, 04/12/2020); kidney transplant w/o [place] nephrectomy (N/A, 04/12/2020); and placement nephrostomy [...] Negative for , diarrhea, constipation Genitourinary: See ROSEBUD Neurological: Negative for headaches. Lymph/Heme: Negative for [...] x 4, Normal strength. No edema. Skin: [place], warm, and dry. 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 Nephrostomy tube placed 05/17 due [...] needed. documented in this encounter [facility] 06-27-2022 History and physical note Patient was evaluated in clinic as a nurse visit. Please refer to Rena Brewster's note. [facility] Work Phone: 06-27-2022 History and physical note Patient was evaluated in clinic as a nurse visit. Please refer to Rena Brewster's note. documented in this encounter [facility] 06-27-2022 History of Present illness Narrative TEACHING REGARDING TX NEPH COMPLETED-NEPH TUBE SITE DRY AND INTACT-CLEAR YELLOW URINE IN THE BAG-INSTRUCTED ABOUT FLUSHING, BAG CHANGING ETC. NUMEROUS QUESTIONS ASKED AND ANSWERED-VERBALIZED UNDERSTANDING documented in this encounter [facility] 06-18-2022 Note EXAMINATION: CT ABD/ PELVIS WO [...] mass or enlargement. KIDNEYS: Marked atrophy of [place] kidneys. Transplant right pelvic kidney with [...] by: MÓNICA JIMENEZ Date: 2022-06-18 13:53 [facility] 06-12-2022 Instructions Anayeli Christianson RN - 06/12/2022 3:21 PM EDT Do not take apart/disrupt nephrostomy tube system. Call Interventional Radiology and/or on-call transplant nurse [phone] for instruction if need to flush (clot or decreased flow). Take cipro 500mg, one tablet, twice per day for 14 days documented in this encounter [facility] 06-12-2022 History of Present illness Narrative Images from the original note were not included. 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 Associate Veterinarian: Anayeli Burt Date of Liver Transplant: 04/13/2020 (Kidney), 04/13/2020 (Liver) 2 year, 1 months post Liver/Kidney Transplant Primary Disease: Hypertensive Nephrosclerosis Transplant Spanish Tutor: Steve Latham Primary Care physician: Zuly Bruno [...] transport for appointment: no Did front end driver confirm current address and insurance information [...] LAB AND PHARMACY: None Specified [facility] [place] [address] - [address] [address] [facility] [address] [facility], [address] [facility] [address] [facility]/pharmacy [facility][id number] [place] [address] [address] [facility] [address] [facility] [address] [facility] [address], Jorge [address] [facility] [address] ROS and SCREEN: Chest Pain: negative Cough: negative SOB: negative Abd Pain: negative Nausea: positive Vomiting: negative Diarrhea: negative Constipation: negative Dysuria: positive Edema: negative Tremors: negative Headaches: negative Wound issues: negative Pt has neph tube w clear yellow urine. States he had a small clot that he dislodged QUESTIONS OR CONCERNS TO ADDRESS WITH PHYSICIAN: I saw George Styles at the [facility] on 06/12/2022. Patient is a 52 y.o. 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 His [place] kidney disease was noted to be [...] GUIDANCE 05/17/2022 Surgeon: Enzo Heart DO; Location: [facility] INTERVENTIONAL RADIOLOGY (VIR) LIVER TRANSPLANT, ORTHOTOPIC N/A 04/12/2020 Laterality: N/A; Surgeon: LU Palma; Location: [facility] SAME DAY SURGERY MAIN OR KIDNEY TRANSPLANT W/O [place]AK[place]ET NEPHRECTOMY N/A 04/12/2020 Laterality: N/A; Surgeon: LU Palma; Location: [facility] SAME DAY SURGERY MAIN OR OTHER SURGICAL [...] you have any questions. Steve Latham MD cut off operator scorer Division of Nephrology [facility] documented in this encounter [facility] 06-04-2022 TATI [place] - 06/04/2022 11:04 AM EDT Thank you for joining us for your neph tube follow up. We recommend routine exchange every 8-10 weeks. Please reach out at [phone] when it is time to set your next routine exchange. Thank you IR clinic documented in this encounter [facility] 06-04-2022 History of Present illness Narrative Met [...] understanding. documented in this encounter [facility] 05-20-2022 Note Formatting of this n ote [...] his discharge. Leon Cook RN [facility] 05-20-2022 Miscellaneous Notes Patient discharged. AVS printed [...] provide teaching before his discharge Leon RN #[id number] Leon Cook RN Afternoon assessment completed at [...] with questions. Evan Byrd MD Urology, PGY-2 #[id number] I certify that this patient requires inpatient [...] care explained choices provided On admission to [facility], a dual RN initial assessment of skin condition was performed by Klalie Lorenzana RN and Sheri Arguelles RN. Skin Assessment: WDL Jose Score: 20 LDA Added:N Kallie Lorenzana RN documented in this encounter [facility] 05-20-2022 Note Formatting of this n ote [...] care. Outcome: Adequate for Discharge [facility] 05-20-2022 Note Formatting of this n ote might be different from the original. Anne Dillard MD R10 Rm 1003 Jensen George Please let's have a clear order on how the nephrostomy site dressing need to be changed when the patient goes home so we provide teaching before his discharge Leon RN #[id number] Leon Cook[facility] History of Present illness Narrative Images from the original note were not included. [facility] Note: [facility] received the following discharge prescription(s): Medication reconciliation was completed with comparison to discharge reconciliation report. The prescription(s) will be delivered to the patient's bedside on 05/20/22. Total cost is $0. Yanira Her RPh,PharmD Specialty ([place]) [phone] [facility] [phone] [facility] [phone] [facility] [phone] [place] [phone] Bedside Delivery [facility] [phone] Attending I saw George Styles at the [facility] on 05/19/2022. I saw and independently evaluated [...] 250 mL 250 mL Intravenous PRN Evan eBnnett MD tacrolimus (PROGRAF) capsule 1 mg 1 [...] Daily Progress Note Patient: George Styles, 1970, [id number] Physician: Liam Julian MD, PGY-3, Pager #[phone], [id number] Subjective/Interval History: No acute events overnight. Passed [...] Saldana MD Division of Hospital Medicine Pager [phone] Attending I saw George Styles at the [facility] on 05/18/2022. I saw and independently evaluated [...] Daily Progress Note Patient: George Styles, 1970, [id number] Physician: Nishant Gamez MD, PGY2, Pager #[phone], [id number] Subjective/Interval History: Nephrostomy tube placed yesterday with [...] to have stablized for this to be automobile rental representative. Daya Saldana MD (Peggy) Division of Hospital Medicine Pager [phone] Internal Medicine Daily Progress Note Patient: George Styles, 1970, [id number] Physician: Nishant Gamez MD, PGY2, Pager #[phone], [id number] Subjective/Interval History: Worsening creatinine this morning with [...] MD (Peggy) Division of Hospital Medicine Pager [phone] Attending I saw George Styles at the [facility] on 05/17/2022. I saw and independently evaluated [...] of chart and discussion with treatment team, Replenishment Buyer has not identified needs at this time. [...] follow. Introduced self and role of the fixer supervisor to patient. Provided emotional and spiritual support and the patient responded by sharing their experience and discussed the following: - Spirituality/Confucianism Affiliation: As a kid attended Shinto adventist but not a strong identity now - Family support - pt's brothers live close by Social Studies Teacher provided: - Supportive presence - Active listening - Validation of feelings/emotions Patient encouraged to request a fixer supervisor as needed. Chaplains are available in-house 24 hours a day and 7 days a week. For urgent matters in [facility], please page [phone]. If the request is not urgent, please enter a consult. Consults are responded to within 24 hours. Angie Singh Mdiv, [facility] Burn Unit and Transplant [place] [address] Social Studies Teacher [facility] Social Studies Teacher Kirk [phone] [email or web address] 22/06 [facility] Pager [phone] 22/06 Pager ,[facility], and Brock 1500 22/06 David [...] life story;Identifying support system Explored Expectations Director Of Music Therapy Education Director Of Music Therapy Service Available Yes Educated Patient Outcomes Patient Outcomes Articulated purpose/meaning Plan of Care Continue Visiting PRN Internal Medicine Daily Progress Note Patient: George Styles, 1970, [id number] Physician: Nishant Gamez MD, PGY2, Pager #[phone], [id number] Subjective/Interval History: Overall feeling okay this morning. 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 Objective/Observation: [...] Supervision Transfer Assessment: Sit to Stand Transfer Ramer Level: Sit->Stand: independent Skilled Intervention/Details: Sit->Stand: x1 from EOB Stand to Sit Transfer Ramer Level: Stand->Sit: supervision Assistive Device: Stand->Sit: armed chair Skilled Rationale: Controlled descent for sitting, Verbal cues Gait/Functional Mobility: Gait Assessment Ramer Level: Gait: supervision Assistive Device: Gait: gait belt Gait Distance (feet): 200 Gait Deviations Identified: decreased grace, decreased step length, decreased stride length Gait Skilled Rationale: verbal, upright posture Skilled Intervention/Details - Gait: Pt with steady gait without LOB or complaints of SOB. Stairs: Stairs Assessment Ramer Level: Stair Negotiation: stand-by assist Assistive Device: Stair Negotiation: gait belt, left rail (ascending) Number of stairs: 9 Stairs Skilled Rationale: reciprocal pattern Outcome Score(s): CURRENT [facility] Basic Mobility Inpatient Short Form Turning over in bed: 4 - No Assistance Sitting/standing from chair: 4 - No Assistance Moving from lying on back to sittin - No Assistance Moving to and from bed to chair: 4 - No Assistance Walk in hospital room: 3 - A Little Assistance Climbing 3-5 steps with a railin - A Little Assistance CURRENT [facility] Mobility Raw Score: 22 CURRENT [facility] Mobility Functional Limitation/Modifier: 20.91% Currently Impaired in [...] community) Prior Level of Function 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 IADL History IADLs: independent Primary Language: Algerian Home Management Skills: independent Meal Prep Responsibility: [...] Assessment: Transfer Assessment: Sit to Stand Transfer Ramer Level: Sit->Stand: independent Skilled Rationale: Cues for increased safety Skilled Intervention/Details: Sit->Stand: x1 EOB Stand to Sit Transfer Ramer Level: Stand->Sit: supervision Assistive Device: Stand->Sit: gait belt, armed chair Skilled Rationale: Verbal cues, Controlled descent for sitting, Cues for increased safety Skilled Intervention/Details: Stand->Sit: cues for hand placement and controlled descent Functional Mobility: Functional Mobility Ramer Level: Functional Mobility/Gait: stand-by assist Assistive Device: Functional Mobility/Gait: gait belt Functional Mobility Distance: Distance needed for limited community mobility Functional Mobility Deficits: Activity tolerance, Balance, Decreased step length, Generalized weakness Functional Mobility Skilled Rationale: Verbal cues, Facilitate postural control Skilled Intervention/Details - Functional Mobility/Gait: cues for upright posture Outcome Score(s): CURRENT [facility] Daily Activity Inpatient Short Form Putting on/Taking Off Lower Body Clothin - A Little Assistance Bathin - A Little Assistance Toiletin - A Little Assistance Putting on/Taking Off Upper Body Clothin - No Assistance Groomin - No Assistance Eatin - No Assistance CURRENT [facility] Activity Raw Score: 21 CURRENT -[facility] Activity Functional Limitation/Modifier: 32.79% Currently Impaired [...] by: Mel Norman OT, OTR/L License #: [id number] pager # [phone] 05/20/2022 Upon discontinuation of Acute Care Occupational Therapy Services or patient discharge from the hospital this note represents the current Occupational Therapy Discharge Summary. documented in this encounter [facility] 05-20-2022 Hospital course Narrative Discharge Summary Name: [...] recent hospital stay at [facility]. As you may know, George [...] Saldana MD Division of Hospital Medicine p: [phone] f: [phone] CONSULTS DURING ADMISSION: IP CONSULT TO SURGERY - UROLOGY IP CONSULT TO NEPHROLOGY - TRANSPLANT (MEDICINE) IP CONSULT TO INTERVENTIONAL RADIOLOGY IP CONSULT TO PHYSICAL THERAPY IP CONSULT TO OCCUPATIONAL THERAPY IP CONSULT TO PHARMACY BEDSIDE DISCHARGE MED DELIVERY IMAGING / PROCEDURES / RESULTS: Should you require further information or copies of results or reports please contact [employer] @ [phone] LABS AT TIME OF DISCHARGE: Lab Results [...] AT DISCHARGE: Zuly Bruno [address] [facility] / [place] [address] MEDICATIONS: Discharge Orders CT ABDOMEN/PELVIS WITHOUT CONTRAST [...] CAPS Generic drug: docusate Follow-up: Zuly Bruno, 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 [address] [facility] [address] Schedule an appointment as soon as possible for a visit Follow-up appointment with your, primary care physician within 7-10 days, after discharge. [address] [facility] [phone] Follow up The department of urology will call you with a follow up appointment. LU Ovalle [address] 11th Floor [facility] [address] Follow up Please make a follow up appointment with Dr. Latham's office. Upcoming Appointments (up to five)-Some appointments for Medical Center outpatient clinics or diagnostic testing locations are not displayed below Provider Department Dept Phone 06/04/2022 10:40 AM ERNESTO MACIEL [facility] Interventional Radiology Clinic [phone] 06/27/2022 1:30 PM MAURICE ROBBY [facility] Department of Radiology Arrive at: Arrive to First Floor Registration Desk [phone] 06/27/2022 2:40 PM Ryan Jyoti Deltashilpadina [facility] Arrive at: Arrive to 2nd Floor, Registration [address] 10/31/2022 1:00 PM Steve Latham [facility] Transplant Center Brain [facility] Spine [facility] [phone] 01/16/2023 9:40 AM TRANSPLANT HEPATOLOGY 3, [facility] Transplant Center Brain and Spine [facility] [phone] Associated attestation - Daya Saldana MD - [...] Saldana MD Division of Hospital Medicine Pager [phone] documented in this encounter [facility] 05-20-2022 Hospital Discharge instructions Giulia [...] be changed by Interventional Radiology. Please call [phone] to schedule this appointment and with any questions or concerns you may have regarding the nephrostomy tube. If you have questions or concerns, please call Interventional Radiology at SOMEONE FROM INTERVENTIONAL RADIOLOGY WILL CALL YOU FOR A FOLLOW UP IN THE IR CLINIC Giulia Cavazos RN Nurse Coordinator Interventional Radiology Interventional Radiology Outpatient scheduling documented in this encounter [facility] 05-19-2022 Note Formatting of this [...] Interdisciplinary Rounds/Family Conf Outcome: Ongoing [facility] 05-19-2022 Note Formatting of this n ote might be different from the original. Discussed with [facility] re: possible urine culture performed at their facility. However, based on urinalysis completed at that time, which was only notable for hematuria, culture was not performed and sample no longer feasible for culture. Liam Julian MD Internal Medicine/Pediatrics, PGY-3 [facility] 05-18-2022 Note Formatting of this n ote might be different from the original. 2003: IHIS message sent to Dr Justyn Wen, regarding patient passing a small kidney stone, about the size of pea. MD notified. Stone left in strainer in pt bathroom. 0500: IHIS message sent to Dr Justyn Wen, regarding pt BP 174/77. [facility] 05-18-2022 Note Formatting of this n ote [...] discharge/transition of care. Outcome: Ongoing [facility] 05-18-2022 Note Formatting of this n ote [...] NS should instead be used. [facility] Work Phone: 05-18-2022 Note Formatting of this n ote might be different from the original. IHIS chat sent to Dr Tray Quintana, regarding pt BP 190/86. Pt complaining of pain at site of neph tube. PRN pain medication given per order parameters. Pt denies any other symptoms at this time. notified and aware. [facility] 05-17-2022 Note Formatting of this n ote might be different from the original. At 0900, I rounded with Dr. Gamez and Dr. Saldana. At that time I checked Mr. Styles's vital signs. His pulse oximeter was low and he was tachypneic. Verbal order at bedside to put nasal cannula on starting at 2liters oxygen and to provide incentive spirometer. [facility] 05-17-2022 Note Formatting of this n ote might be different from the original. Interventional Radiology procedure completed with IR Attending Dr. Heart / Dr. Le of percutaneous right nephrostomy tube placement transplant kidney 10.2 Fr Griffin acosta Pt tolerated procedure with moderate sedation local numbing agent . Transported to inpatient after phase I recovery. Post procedure orders in place. [facility] 05-16-2022 Note Formatting of this n ote might be different from the original. At 1530, I text parisd Kaitlynn Gomez MD that patient has only had 25ml urine output in matias this afternoon. [facility] 05-16-2022 Note Formatting of this n ote [...] with questions. Evan Byrd MD Urology, PGY-2 #[id number] [facility] Work Phone: 05-16-2022 Note Formatting of this n ote might be different from the original. I certify that this patient requires inpatient services at this time. I anticipate the expected length of stay will include at least two midnights. Inpatient services are due to the following medical concerns Obstructive kidney stone. Plans for post hospitalization care will be discharge to home. [facility] 05-16-2022 Consult note Associated Order (s): IP CONSULT TO NEPHROLOGY - TRANSPLANT (MEDICINE) I saw George Styles at the [facility] on 05/16/2022. Reason for Consultation: kidney stone [...] he was given flomax and sent home. [place] better but noticed more pain and decreased [...] and recommendations. Maxi Pringle MD [facility] Work Phone: 05-16-2022 Consult note Associated Order (s): IP CONSULT TO NEPHROLOGY - TRANSPLANT (MEDICINE) I saw George Styles at the [facility] on 05/16/2022. Reason for Consultation: kidney stone [...] he was given flomax and sent home. [place] better but noticed more pain and decreased [...] states he went to his local ED [place] and he was put on Flomax and he did improve. Pt states last night he was unable to void with severe right sided abd pain. Pt states nausea and no vomiting or fevers. Pt states he went back to [place] ED at 0100 and they placed a [...] orthotopic (N/A, 04/12/2020); and kidney transplant w/o [place] nephrectomy (N/A, 04/12/2020). 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 The [place] kidneys are progressively atrophic bilaterally compared [...] of 06/14/2020 are no longer present. The [place] distal right ureter is decompressed beyond [...] with surgical history for renal graft and [place] right urinary drainage, as a discrete ureteroneocystostomy is not identified, and the graft may be draining via a ureteroureterostomy. Urology consultation recommended. 3. The [place] kidneys are bilaterally atrophic, with right renal sinus calcifications consistent with nonobstructing right [place] renal calculi up to 6 mm. [...] PGY-3, Department of Urologic Surgery Pager #: [phone] Associated attestation - Ryan Yepez MD - [...] continue flomax documented in this encounter [facility] 05-16-2022 Note Formatting of this [...] Relationship/Rapport: care explained choices provided [facility] 05-16-2022 Note Formatting of this n ote might be different from the original. On admission to [facility], a dual RN initial assessment of skin condition was performed by Kallie Lorenzana RN and Sheri Arguelles RN. Skin Assessment: WDL Jose Score: 20 LDA Added:N Kallie Lorenzana RN [facility] 05-15-2022 Emergency department Note Report given to Kallie RN at 10 [facility] 05-15-2022 Emergency department Note Report given to [...] 04/12/2020 Laterality: N/A; Surgeon: LU Palma; Location: [facility] SAME DAY SURGERY MAIN OR OTHER SURGICAL [...] states he went to his local ED [place] and he was put on Flomax and he did improve. Pt states last night he was unable to void with severe right sided abd pain. Pt states nausea and no vomiting or fevers. Pt states he went back to [place] ED at 0100 and they placed a matias and CT scan completed and multiple kidney stones noted. [facility] had liver and kidney transplant in 03/2020. documented in this encounter [facility] 05-15-2022 History and physical note Internal Medicine Admission History & Physical Patient: George Styles, 1970, [id number] Physician: Evan Bennett MD, PGY1, Pager #[phone], GM 4 service Date of face to [...] 04/12/2020 Laterality: N/A; Surgeon: LU Palma; Location: [facility] SAME DAY SURGERY MAIN OR KIDNEY TRANSPLANT W/O [place]ET NEPHRECTOMY N/A 04/12/2020 Laterality: N/A; Surgeon: LU Palma; Location: [facility] SAME DAY SURGERY MAIN OR OTHER SURGICAL [...] erythema: Skin: No jaundice or rash Neuro: parachute cushion installer 3-7, 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 Strength grossly [...] dilation of the calyces may represent narrowing/partial [id number] ofthe ureter and mild hydronephrosis or sequela [...] MD Division of Hospital Medicine [phone] [facility] Work Phone: 05-15-2022 History and physical note Internal Medicine Admission History & Physical Patient: George Styles, 1970, [id number] Physician: Evan Bennett MD, PGY1, Pager #[phone], GM 4 service Date of face to face patient encounter: 05/15/22 . Chief Complaint: Kidney Stones History Of Present Illness: eGorge Styles is a 52 y.o. male with [...] 04/12/2020 Laterality: N/A; Surgeon: LU Palma; Location: [facility] SAME DAY SURGERY MAIN OR KIDNEY TRANSPLANT W/O ALLAKAKET NEPHRECTOMY N/A 04/12/2020 Laterality: N/A; Surgeon: LU Palma; Location: [facility] SAME DAY SURGERY MAIN OR OTHER SURGICAL [...] erythema: Skin: No jaundice or rash Neuro: parachute cushion installer 3-7, 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 Strength grossly [...] dilation of the calyces may represent narrowing/partial [id number] ofthe ureter and mild hydronephrosis or sequela [...] Medicine [id number] documented in this encounter [facility] 05-15-2022 Emergency department Note Bladder scan with Dr Villatoro at bedside, 14ml noted [facility] 05-15-2022 Consult note Associated Order [...] states he went to his local ED [place] and he was put on Flomax and he did improve. Pt states last night he was unable to void with severe right sided abd pain. Pt states nausea and no vomiting or fevers. Pt states he went back to [place] ED at 0100 and they placed a [...] orthotopic (N/A, 04/12/2020); and kidney transplant w/o [place] nephrectomy (N/A, 04/12/2020). 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 The [place] kidneys are progressively atrophic bilaterally compared [...] of 06/14/2020 are no longer present. The [place] distal right ureter is decompressed beyond [...] with surgical history for renal graft and [place] right urinary drainage, as a discrete ureteroneocystostomy is not identified, and the graft may be draining via a ureteroureterostomy. Urology consultation recommended. 3. The [place] kidneys are bilaterally atrophic, with right renal sinus calcifications consistent with nonobstructing right [place] renal calculi up to 6 mm. [...] PGY-3, Department of Urologic Surgery Pager #: [phone] Associated attestation - Ryan Yepez MD - [...] before surgical intervention --may continue flomax [facility] Work Phone: 05-15-2022 Emergency department Note Advised Dr Schneider concerning no urine output via matias catheter. [facility] 05-15-2022 Physician Emergency department Note ED Attending George Feliz Jensen has a past medical history of Acute renal failure, CAD (coronary artery disease), Cirrhosis, Dialysis patient, End stage renal disease (06/01/2018), Essential hypertension, benign, Hepatic encephalopathy, History of blood transfusion, and Liver cirrhosis. Presents with a chief complaint of kidney stone and diagnosed Thursday and was sent home with [facility]. He went back to that ED [...] care. Gian Villatoro MD 05/15/222003 [facility] Work Phone: 05-15-[address] Schneider made aware of only 30 ml urine via matias since arrival to room. [facility] 05-15-2022 Physician Emergency department Note dEPARTMENT of [...] Matt Schneider MD Resident 05/15/222030 [facility] Work Phone: 05-15-2022 Emergency department Note Pt arrives from [facility] with kidney stones. Pt states he had right lower abd pain and right flank pain with blood in his urine since Thursday. Pt states he went to his local ED [place] and he was put on Flomax and he did improve. Pt states last night he was unable to void with severe right sided abd pain. Pt states nausea and no vomiting or fevers. Pt states he went back to [place] ED at 0100 and they placed a matias and CT scan completed and multiple kidney stones noted. [facility] and kidney transplant in 03/2020. [facility] 03-14-2022 History of Present illness Narrative [facility]: Call Information: Date and Time of Contact: 03/14/2022 5:01 PM Method of Contact: By Phone Contact Type: Prescriptions Contactor: [facility] Contactee: Patient Shipping/Pickup: Medicare B Refill?: No Medication Name: Mycophenolate sodium 180 mg and tacrolimus 0.5 mg Delivery Method: Air Delivery Location: Home Signature Required: No Mailing/Pickup Date: 03/17/2022 Shipping Address: [address] [place] [address] [address] Contact Info: Specialty ([place]) [phone] [place] [phone] [facility] [phone] David [phone] Bedside Delivery ([facility]) [phone] [facility] History of Present illness Narrative [facility] [...] 05/16/22 Goal Progress: Satisfactory Contact Info: Specialty ([place]) [phone] [facility] [phone] [facility] [phone] David [phone] Bedside Delivery ([facility]) [phone] [facility]: Call Information: Date [...] Location: Home Signature Required: Yes Shipping Address: [address] [place] [address] [address] [facility] [address] Contact Info: Specialty ([place]) [phone] Jakob [phone] [facility] [phone] [facility] [phone] Bedside Delivery ([facility]) [phone] documented in this encounter [facility] Evaluation note Diagnosis FAYE (acute kidney injury)- Primary Acute kidney failure, unspecified Hydronephrosis due to obstruction of ureteral orifice Hydronephrosis due to obstruction of ureteral orifice FAYE (acute kidney injury) Acute kidney failure, unspecified documented in this encounter [facility] Diagnosis Follow-up exam- Primary Unspecified follow-up examination documented in this encounter [facility] Diagnosis Immunosuppressed status- Primary Unspecified disorder of immune mechanism Kidney replaced by transplant Liver replaced by transplant Abnormal blood chemistry Other abnormal blood chemistry High risk medication use Encounter for long-term (current) use of other medications Aftercare following organ transplant Liver transplant recipient documented in this encounter [facility] Diagnosis Attention to nephrostomy- Primary documented in this encounter [facility] Diagnosis Other hydronephrosis- Primary documented in this encounter [facility] Diagnosis FAYE (acute kidney injury) Acute kidney failure, unspecified documented in this encounter [facility] Diagnosis Other hydronephrosis- Primary -donor kidney transplant recipient Kidney replaced by transplant documented in this encounter [facility] Diagnosis Other hydronephrosis documented in this encounter [facility] Diagnosis 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) Encounter for screening for malignant neoplasm of prostate Special screening for malignant neoplasm of prostate [facility] encounter [facility] Diagnosis Abnormal blood chemistry- Primary Other abnormal blood chemistry Liver transplant recipient Kidney replaced by transplant Immunosuppressed status Unspecified disorder of immune mechanism Aftercare following organ transplant [facility] Diagnosis Kidney replaced by transplant- Primary [facility] Diagnosis Immunosuppressed status- Primary Unspecified disorder of immune mechanism Kidney replaced by transplant Aftercare following organ transplant High risk medication use Encounter for long-term (current) use of other medications Other general symptoms and signs Abnormal blood chemistry Other abnormal blood chemistry Hypertension secondary to other renal disorders documented [facility] encounter [facility] Diagnosis Histoplasmosis- Primary Histoplasmosis, unspecified without [...] Fever Fever, unspecified [facility] Diagnosis Bilateral lower extremity edema- Primary 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) Atherosclerosis 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) Atherosclerosis of aorta Obesity (BMI 30-39.9) DARLENE (obstructive sleep apnea) Obstructive sleep apnea (adult) (pediatric) Tremor Abnormal involuntary movements Immunocompromised (CMS/HCC) Unspecified immunity deficiency Primary hypertension (CMS/HCC) Unspecified essential hypertension Shortness of breath documented in this encounter [facility]* Diagnosis Pleural effusion on right- [...] specified pre-operative examination documented [facility] this encounter [facility] Diagnosis Heart failure, diastolic, acute- Primary Acute diastolic heart failure documented in this encounter [facility] Diagnosis Liver lesion- Primary Other specified disorders of liver Liver transplant recipient High risk medication use Encounter for long-term (current) use of other medications Therapeutic drug monitoring Encounter for therapeutic drug monitoring Immunocompromised Unspecified immunity deficiency documented in this encounter [facility] Diagnosis Kidney replaced by transplant- Primary documented in this [facility] (narrative)* Consultation (Routine) - New Request Specialty Diagnoses / Procedures Referred By Deni edwards Referred To Contact Interventional Radiology Diagnoses Hydronephrosis due to obstruction of ureteral orifice Daya Saldana MD [address] [place] [phone] Referral ID Status Reason Start Date Expiration Date V isits Requested Visits Authorized [id number] New Request 05/18/2022 06/12/2023 1 1 * Radiology (Emergency) - New Request Specialty Diagnoses / Procedures Referred By Deni edwards Referred To Contact Procedures US RENAL TRANSPLANT SCAN Daya Saldana MD [address] [place] [phone] Referral ID Status Reason Start Date Expiration Date V isits Requested Visits Authorized [id number] New Request 05/16/2022 06/10/2023 1 1 * Consultation (Routine) - New Request Specialty Diagnoses / Procedures Referred By Deni edwards Referred To Contact Urology Diagnoses FAYE (acute kidney injury) Ryan Yepez MD [address] [place], [place] [id number] Referral ID Status Reason Start Date Expiration Date V isits Requested Visits Authorized [id number] New Request 05/16/2022 06/10/2023 1 1 * MRI/CAT Scan (Routine) - New Request Specialty Diagnoses / Procedures Referred By Contac t Referred To Contact Diagnoses FAYE (acute kidney injury) Procedures CT ABDOMEN/PELVIS WITHOUT CONTRAST CHG CT SCAN,ABDOMENT AND PELVIS,W/O CONTRAST Ryan Yepez MD [address] [facility] [address] [place] [address] Referral ID Status Reason Start Date Expiration Date V isits Requested Visits Authorized [id number] New Request 05/16/2022 06/10/2023 1 1 * (Routine) - Pending Review Specialty Diagnoses / Procedures Referred By Contac t Referred To Contact Procedures PLATELET MONITORING PER PROTOCOL Daya Saldana MD [address] [place] [address] Referral ID Status Reason Start Date Expiration Date V isits Requested Visits Authorized [id number] Pending Review 05/15/2022 06/09/2023 1 1 * (Routine) - Pending Review Specialty Diagnoses / Procedures Referred By Contac t Referred To Contact Procedures DVT/VTE RISK ASSESSMENT Daya Saldana MD [address] [place] [address] Referral ID Status Reason Start Date Expiration Date V isits Requested Visits Authorized [id number] Pending Review 05/15/2022 06/09/2023 1 1 * (Routine) Specialty Diagnoses / Procedures Referred By Contac t Referred To Contact Evan Bennett MD [address] [place] [address] Referral ID Status Reason Start Date Expiration Date Visits Re quested Visits Authorized * (Routine) Specialty Diagnoses / Procedures Referred By Contac t Referred To Contact Evan Bennett MD [address] [place] [address] Referral ID Status Reason Start Date Expiration Date Visits Re quested Visits Authorized [facility] for referral (narrative)* Consultation (Routine) - New Request Specialty Diagnoses / Procedures Referred By Contac t Referred To Contact Sleep Medicine Diagnoses Hypoxia Kevin Sage MD [address] [place] [address] Referral ID Status Reason Start Date Expiration Date V isits Requested Visits Authorized [id number] New Request 09/10/2023 10/04/2024 1 1 * MRI/CAT Scan (Routine) - New Request Specialty Diagnoses / Procedures Referred By Contdaniel t Referred To Contact Diagnoses Histoplasmosis Procedures CT CHEST WITHOUT CONTRAST CHG DIAGNOSTIC COMPUTED TOMOGRAPHY THORAX W/O Kevin Zarate MD [address] [place] [address] Referral ID Status Reason Start Date Expiration Date V isits Requested Visits Authorized [id number] New Request 09/10/2023 10/04/2024 1 1 * Radiology (Routine) - New Request Specialty Diagnoses / Procedures Referred By Contdaniel t Referred To Contact Procedures US RENAL TRANSPLANT SCAN Steve Latham MBBS [address] [place] [address] Referral ID Status Reason Start Date Expiration Date V isits Requested Visits Authorized [id number] New Request 08/29/2023 09/22/2024 1 1 * (Routine) - New Request Specialty Diagnoses / Procedures Referred By Contac t Referred To Contact Procedures PLATELET MONITORING PER PROTOCOL Steve Latham MBBS [address] [place] [address] Referral ID Status Reason Start Date Expiration Date V isits Requested Visits Authorized [id number] New Request 08/28/2023 09/21/2024 1 1 * (Routine) - New Request Specialty Diagnoses / Procedures Referred By Contac t Referred To Contact Procedures DVT/VTE RISK ASSESSMENT Steve Latham MBBS [address], [place] [address] Referral ID Status Reason Start Date Expiration Date V isits Requested Visits Authorized [id number] New Request 08/28/2023 09/21/2024 1 1 [facility] Instructions * Patient Instructions - Christin Elizabeth APRN-ROB - 10/19/2018 9:21 AM EST You should take an extra dose of the lactulose as needed so that you are having 3-4 bowel movementsdaily. You should start the chemical dependency counseling as soon as possible. If you have questions, call the transplant social insurance analyst Fidelina Pierson. in this encounter* Patient Instructions - Sophie Cary RN - 10/12/2018 11:09 AM EST You have been seen in the pre-transplant evaluation clinic by Dr. Restrepo and Sophie Cary. Sophie Cary is your pre-major donor coordinator she can be reached at [phone] at any time for questions during the pre-transplant process. Your evaluation is complete pendin. Abdominal ultrasound. 2. 6 minute walk test. 3. Cardiology evaluation. Additionally, your restrooms or lounges maid will recommend testing to screen for coronary artery disease. This will be scheduled for you after your cardiology visit. 4. Your coordinator will be requesting record from your last dental visit, colonoscopy and EGD. 5. Please work to complete social work recommendations. Your social insurance analyst will be contacting you to follow up on your progress. 6. You have also been referred for a kidney transplant. An appointment will be scheduled for you sari evaluated in the kidney transplant clinic after you have satisfied requirements dictated by [employer] company. Once your testing is complete, we [...] ___ Other Name MRN * Christin Elizabeth, INTERNATIONAL EXCHANGE COORDINATOR-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 - 10/19/2018 9:00 AM EST Formatting of this note may be different from the original. History of Present Illness: Chief Complaint Patient presents with Follow-up Cirrhosis George Styles is a 48 y.o. male who presents to the [facility] today regarding his diagnosis/chief complaint(s) of Cirrhosis secondary to ETOH, with ESRD follows with Dr. Orr. Currently undergoing evaluation for liver/kidney transplant. Has been seen in transplant clinic for eval. Still undergoing pre testing. Diagnosed in April 2018. Last drink was immediately prior to hospital admission in [place] for ACLF. Hospital course notable for ARF [...] (human immunodeficiency virus infection); Hyperlipidemia; Hyperthyroidism; Hypothyroidism; ME (myocardial infarction); Migraine; DARLENE (obstructive sleep apnea); [...] kidney transplant evaluation. Pt was AOx3. Transplant Marketing Intern role/function was explained and reviewed. The patient [...] resources were offered. Pt identifies with CATHOLIC lutheran. Pt confirms being a [place] Citizen. Pt.'s primary language is Algerian. Pt confirms the ability to read,write, and understand Algerian. Pt denies potential donors. Donor cards and [...] has valid license, does not regularly drive ([facility] recommends that he not to drive). [...] etoh cirrohosis April dx in [facility] for thirty days. Pt reports learning [...] as well as referred him to pre major donor coordinator. Pt and support demonstrated moderate understanding [...] Patient's brother David is a self employed sales contractor. Additional support includes his other brother Tyshawn and his Mary live fifteen minutes away. Of note Mary is a professor of musicology for a [employer] is available to assist department sales manager. He confirms being comfortable asking for [...] in 2010, he was employed by the [employer]. He has access to SSDI payment (SSDI starts in November) in regards to financial means pre/ post-transplant. Pt confirms (meeting bills currently, ) being able to meet daily needs. Patient's brother asking for additional information on community resources, food stamps and [employer]. Refer him to pt.'s dialysis center and the [facility]. Hereports access to Medicaid. Pt. denies [...] DUI charge [facility] in [place], court ordered treatment in 2001 and in [...] new visit Date of service: 10/12/2018 -Referring heating element repairer for today's consult: -Primary Care Provider: Zuly Bruno CC: Chief Complaint Patient presents with Liver Recipient Evaluation History of Present Illness George Styles is a 48 y.o. male who presents to the [facility] liver transplant surgery clinic [...] EST Timed up and go 9.9 seconds Channel Manager Left 52.8 pounds Right 44.9 pounds Waist circ 38.5 inches * Sophie Cary, SAMI - 10/12/2018 10:00 AM EST Formatting of this note may be different from the original. Patient George Styles ([id number]), accompanied by his brother, was seen on [...] any further questions. Sophie GUERINN, RN Liver Associate Veterinarian Etiology: ETOH HCC: No ETOH: Yes Last [...] Orr MD [address] [address] Status Reason Specialty Diagnoses / Procedures Referred By Contact Referred To Contact New Request Diagnoses Cirrhosis of liver with ascites, unspecified hepatic cirrhosis type Procedures US ABDOMEN RUQ/LIVER/GB Yovani Orr MD [address] [address] Specialty Diagnoses / Procedures Referred By Contac t Referred To Contact Diagnoses FAYE (acute kidney injury) Procedures CT ABDOMEN/PELVIS WITHOUT CONTRAST CHG CT SCAN,ABDOMENT AND PELVIS,W/O CONTRAST Central Scheduling [address] [place] [address] Referral ID Status Reason Start Date Expiration Date V isits Requested Visits Authorized [id number] Pending Review 05/16/2022 06/10/2023 1 1 Specialty Diagnoses / Procedures Referred By Contac t Referred To Contact Diagnoses Other hydronephrosis Procedures [facility] Ryan Yepez MD [address] [facility] [address] [place] [address] Referral ID Status Reason Start Date Expiration Date V isits Requested Visits Authorized [id number] New Request 07/07/2022 08/01/2023 1 1 Specialty Diagnoses / Procedures Referred By Contac t Referred To Contact Procedures DIRECT ADMIT REQUEST Steve Latham MBBS [address] [place] [address] Referral ID Status Reason Start Date Expiration Date V isits Requested Visits Authorized [id number] New Request 08/28/2023 09/21/2024 1 1 Specialty Diagnoses / Procedures Referred By Contac t Referred To Contact Radiology Diagnoses DARLENE (obstructive sleep apnea) Primary hypertension (CMS/HCC) Bilateral lower extremity edema Shortness of breath Procedures Echocardiogram 2D complete Zuly Bruno, BA [address] [place] [address] Referral ID Status Reason Start Date Expiration Date Visits Requested Visits Authorized [id number] Incomplete Perform Procedure 01/06/2024 07/04/2024 1 1 Specialty Diagnoses / Procedures Referred By Contac t Referred To Contact Procedures US IMAGING REGIONAL ANESTHESIA Kehinde Gutierrez MD [address] [place] [address] Referral ID Status Reason Start Date Expiration Date V isits Requested Visits Authorized [id number] New Request 01/22/2024 02/15/2025 1 1 Specialty Diagnoses / Procedures Referred By Contac t Referred To Contact Cardiovascular Medicine Diagnoses Heart failure, diastolic, acute Kelvin Pacheco MD, JOSHBS [address] [place] [address] Referral ID Status Reason Start Date Expiration Date V isits Requested Visits Authorized [id number] New Request 01/20/2024 02/13/2025 1 1 Specialty Diagnoses / Procedures Referred By Contac t Referred To Contact Procedures US ABDOMEN LIVER DOPPLER US ABDOMEN LIVER TRANSPLANT DOPPLER Timothy Joseph MD [address] [facility] [address] [place] [address] Referral ID Status Reason Start Date Expiration Date V isits Requested Visits Authorized [id number] New Request 01/16/2024 02/09/2025 1 1 Specialty Diagnoses / Procedures Referred By Contac t Referred To Contact Procedures DVT/VTE RISK ASSESSMENT Kelvin Pacheco MD, MBBS [address] [place] [id number] Referral ID Status Reason Start Date Expiration Date V isits Requested Visits Authorized [id number] New Request 01/16/2024 02/09/2025 1 1 Specialty Diagnoses / Procedures Referred By Contac t Referred To Contact Procedures PLATELET MONITORING PER PROTOCOL Kelvin Pacheco MD, MBBS [address] [address] Referral ID Status Reason Start Date Expiration Date V isits Requested Visits Authorized [id number] New Request 01/16/2024 02/09/2025 1 1 Referral ID Status Reason Start Date Expiration Date V isits Requested Visits Authorized [id number] New Request 01/16/2024 02/09/2025 1 1 Specialty Diagnoses / Procedures Referred By Contac t Referred To Contact Procedures ECG Kelvin Pacheco MD, MBBS [address] [place] [phone] Referral ID Status Reason Start Date Expiration Date V isits Requested Visits Authorized [id number] New Request 01/16/2024 02/09/2025 1 1 Specialty Diagnoses / Procedures Referred By Contac t Referred To Contact Diagnoses Liver lesion Procedures MRI ABDOMEN WITH AND WITHOUT CONTRAST CHG MRI ABDOMEN W/O & W/CONTRAST MATERIAL Daisha Max, DO [address] [place] [phone] Referral ID Status Reason Start Date Expiration Date V isits Requested Visits Authorized [id number] New Request 06/17/2024 07/12/2025 1 1 Advance Directives No Advanced Directives Records FoundDocuments on File Type Date Recorded 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 Advance Directives and Living Will Power of Art Critic Latest Code Status on File Code Status [...] Yovani Orr MD [address] [place] [phone] Status Reason Specialty Diagnoses / Procedures Referre d By Contact Referred To Contact Denied Diagnoses Alcoholic cirrhosis, unspecified whether ascites present Pre-transplant evaluation for liver transplant Procedures MRI ABDOMEN WITH CONTRAST DE MRI, ABDOMEN W/CONTRAST Yovani Orr MD [address] [place] [address] [place] [address] Reason Comments Liver Recipient Evaluation Status Reason Specialty Diagnoses / Procedures Referred By Contact Referred To Contact New Request Transplant / Transplant Surgery Procedures PRE NEW PATIENT Yovani Orr MD [address] [place] [address] [place] [address] Alfredito Restrepo MD [address] [place] [address] Reason Comments Reschedule Reason Comments Outside Medical Records Request Reason Comments Social Work Follow-up Reason Comments Kidney Stone Specialty Diagnoses / Procedures Referred By Contac t Referred To Contact Diagnoses Obstructing kidney stone, s/p kidney transplant 2019 Daya Saldana MD [address] [place] [address] [facility] [address] [place] [address] Referral ID Status Reason Start Date Expiration Date Visits Re quested Visits Authorized [id number] 1 1 Reason Comments Follow-up Reason Comments Kidney Recipient Follow-up Liver Recipient Follow-up Reason Comments Consult Reason Comments New Patient Hospital follow up Specialty Diagnoses / Procedures Referred By Contac t Referred To Contact Urology Diagnoses hosp fu with [address] prior Procedures NEW TO DOC/RET PATIENT 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, 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 [address] [place] [address] Ryan Yepez MD [address] [place] [address] [address] [place] [address] Referral ID Status Reason Start Date Expiration Date Visits Re quested Visits Authorized [id number] Closed 06/27/2022 07/22/2023 1 1 Specialty Diagnoses / Procedures Referred By Contac t Referred To Contact Diagnoses FAYE (acute kidney injury) Procedures CT ABDOMEN/PELVIS WITHOUT CONTRAST CHG CT SCAN,ABDOMENT AND PELVIS,W/O CONTRAST Central Scheduling [address] [place] [id number] Referral ID Status Reason Start Date Expiration Date V isits Requested Visits Authorized [id number] Pending Review 05/16/2022 06/10/2023 1 1 Reason Comments Follow-up Specialty Diagnoses / Procedures Referred By Contac t Referred To Contact Urology Diagnoses 1 week fu post NT clamp Procedures RETURN PATIENT Zuly Bruno, 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 [address] [place] [address] Ryan Yepez MD [address] [place] [address] [address] [place] [address] Referral ID Status Reason Start Date Expiration Date Visits Requested Visits Authorized [id number] Authorized - 07/07/2022 08/01/2023 2 2 Specialty Diagnoses / Procedures Referred By Contac t Referred To Contact Diagnoses Other hydronephrosis Procedures [facility] Ryan Yepez MD [address] [facility] [address] [place] [address] Referral ID Status Reason Start Date Expiration Date V isits Requested Visits Authorized [id number] New Request 07/07/2022 08/01/2023 1 1 Specialty Diagnoses / Procedures Referred By Contac t Referred To Contact Urology Diagnoses 1 week fu post NT clamp Procedures RETURN PATIENT Zuly Bruno, 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 [address] [place] [address] Ryan Yepez MD [address] [facility] [address] [place] [address] Referral ID Status Reason Start Date Expiration Date Visits Re quested Visits Authorized [id number] Closed 07/07/2022 08/01/2023 2 2 Reason Comments Liver Recipient Follow-up Reason Comments Kidney Recipient Follow-up Reason Comments Kidney Recipient Follow-up Specialty Diagnoses / Procedures Referred By Contac t Referred To Contact Diagnoses Kidney replaced by transplant Steve Latham MBBS [address] [place] [address] [facility] [address] [place] [address] Referral ID Status Reason Start Date Expiration Date Visits Re quested Visits Authorized [id number] 1 1 Specialty Diagnoses / Procedures Referred By Contac t Referred To Contact Diagnoses Pleural effusion on right PNEUMONIA- HX LIVER AND KIDNEY TRANSPLANT Kevin Sage MD [address] [place] [address] [facility] [address] [place] [address] Referral ID Status Reason Start Date Expiration Date Visits Re quested Visits Authorized [id number] 1 1 Reason Comments New Patient Specialty Diagnoses / Procedures Referred By Contac t Referred To Contact Cardiovascular Medicine Diagnoses Heart failure, diastolic, acute Kelvin Pacheco MD, MBBS [address] [place] [address] Referral ID Status Reason Start Date Expiration Date Visits Requested Visits Authorized [id number] Authorized - 01/20/2024 02/13/2025 5 5 Reason Comments Liver Recipient Follow-up (unrecognized sect ion and content) No Status Records FoundNo Status Records FoundNo Status Records FoundNo Status Records FoundNo Status Records FoundNo Status Records FoundNo Status Records Found INFORMATION SOURCE (unrecogn ized section and content) DATE CREATED AUTHOR 01/07/2020 Karlie ariza DATE CREATED AUTHOR AUTHOR'S ORGANIZ ATION 01/27/2021 [facility] DATE CREATED AUTHOR AUTHOR'S ORGANIZ ATION 05/11/2023 [facility] DATE CREATED AUTHOR AUTHOR'S ORGANIZ ATION 06/03/2024 [facility] DATE CREATED AUTHOR AUTHOR'S ORGANIZ ATION 06/20/2024 [facility] DATE CREATED AUTHOR AUTHOR'S ORGANIZ ATION 08/25/2024 [facility] DATE CREATED AUTHOR AUTHOR'S ORGANIZ ATION 08/26/2024 [facility] Care Teams (unrecognized sec tion and content) [employer] Relationship Specialty Start Date End Date Zuly Bruno CNP PCP - General 07/19/18 Comfort Rivera, [facility] [address] [facility] [address] [place] [id number] Pharmacist Pharmacist 05/16/20 Angel Carpio [facility],PharmD Pharmacist Pharmacist 05/16/20 Te Leigh [facility],PharmD Pharmacist Pharmacist 01/09/21 [employer] Relationship Specialty Start Date End Date Zuly Bruno CNP PCP - General 07/19/18 Comfort Rivera, [facility] [address] [facility] [address] [place] [address] Pharmacist Pharmacist 05/16/20 Angel Carpio [facility],PharmD Pharmacist Pharmacist 05/16/20 Te Leigh [facility],PharmD Pharmacist Pharmacist 01/09/21 [employer] Relationship Specialty Start Date End Date Zuly Bruno CNP PCP - General 07/19/18 [employer] Relationship Specialty Start Date End Date Zuly Bruno CNP PCP - General 07/19/18 [employer] Relationship Specialty Start Date End Date Zuly Bruno CNP PCP - General 07/19/18 [employer] Relationship Specialty Start Date End Date Zuly Bruno CNP PCP - General 07/19/18 [employer] Relationship Specialty Start Date End Date Zuly Bruno CNP PCP - General 07/19/18 [employer] Relationship Specialty Start Date End Date Zuly Bruno CNP PCP - General 07/19/18 [employer] Relationship Specialty Start Date End Date Zuly Bruno CNP PCP - General 07/19/18 [employer] Relationship Specialty Start Date End Date Zuly Bruno CNP PCP - General 07/19/18 [employer] Relationship Specialty Start Date End Date Zuly Bruno CNP PCP - General 07/19/18 [employer] Relationship Specialty Start Date End Date Zuly Bruno CNP PCP - General 07/19/18 [employer] Relationship Specialty Start Date End Date Zuly Bruno CNP PCP - General 07/19/18 [employer] Relationship Specialty Start Date End Date Zuly Bruno CNP PCP - General 07/19/18 [employer] Relationship Specialty Start Date End Date LexielydialatishaZuly tipton CNP PCP - General 07/19/18 [employer] Relationship Specialty Start Date End Date LexielydialatishaZuly tipton ROB PCP - General 07/19/18 [employer] Relationship Specialty Start Date End Date Lexielydialatishaomer Zuly, ROB PCP - General 07/19/18 Evan White DO [address] [place], [place] [phone] Infectious Disease Infectious Disease 09/09/23 [employer] Relationship Specialty Start Date End Date LexielydiaZuly dorantes CNP PCP - General 07/19/18 Evan White DO [address] [place] [address] Infectious Disease Infectious Disease 09/09/23 [employer] Relationship Specialty Start Date End Date LexielydiaZuly dorantes CNP PCP - General 07/19/18 Evan White DO [address] [place] [address] Infectious Disease Infectious Disease 09/09/23 [employer] Relationship Specialty Start Date End Date Momo Verdugo MD PCP - General Family Medicine 05/21/23 [employer] Relationship Specialty Start Date End Date Momo Verdugo MD PCP - General Family Medicine 05/21/23 [employer] Relationship Specialty Start Date End Date Momo Verdugo MD PCP - General Family Medicine 05/21/23 [employer] Relationship Specialty Start Date End Date Zuly Bruno CNP PCP - General 07/19/18 Evan White DO [address] [place], [place] [address] Infectious Disease Infectious Disease 09/09/23 [employer] Relationship Specialty Start Date End Date Zuly Bruno CNP PCP - General 07/19/18 Evan White DO [address] [place] [address] Infectious Disease Infectious Disease 09/09/23 [employer] Relationship Specialty Start Date End Date Zuly Bruno CNP PCP - General 07/19/18 Evan White DO [address] [place] [address] Infectious Disease Infectious Disease 09/09/23 [employer] Relationship Specialty Start Date End Date Zuly Bruno CNP PCP - General 07/19/18 Evan White DO [address] [place] [address] Infectious Disease Infectious Disease 09/09/23 [employer] Relationship Specialty Start Date End Date Zuly Bruno CNP PCP - General 07/19/18 [place] [address] [place] [address] Infectious Disease Infectious Disease 09/09/23 [employer] Relationship Specialty Start Date End Date LexielydiaZuly dorantes CNP PCP - General 07/19/18 [employer] Relationship Specialty Start Date End Date LexielydiaZuly dorantes CNP PCP - General 07/19/18 [employer] Relationship Specialty Start Date End Date LexielydiaAnnie dorantesaROB PCP - General 07/19/18 [employer] Relationship Specialty Start Date End Date Zuly Bruno CNP PCP - General 07/19/18 [employer] Relationship Specialty Start Date End Date LexielydiaAnnie dorantesaROB PCP - General 07/19/18 [employer] Relationship Specialty Start Date End Date LexielydiaAnnie [...] at 0900, Until Discontinued, On hold since [facility] 01/21/2024 at 0802 until manually unheld [...] - Reason: Transfer to a Procedural area)1414 ([facility] Unhold - Provider: Automatic Transfer)2008 (Given [...] - Reason: Transfer to a Procedural area)1414 ([facility] Unhold - Provider: Automatic Transfer) 0923 (Given [...] - Reason: Transfer to a Procedural area)1414 ([facility] Unhold - Provider: Automatic Transfer) 0920 [...] - Reason: Transfer to a Procedural area)1414 ([facility] Unhold - Provider: Automatic Transfer) 0920 [...] from all sources in 24 hours. 1053 ([facility] Hold - Provider: Automatic Transfer - Reason: Transfer to a Procedural area)1414 ([facility] Unhold - Provider: Automatic Transfer)1806 (Given [...] 200-200 mg and Simethicone 20 mg) 1053 ([facility] Hold - Provider: Automatic Transfer - Reason: Transfer to a Procedural area)1414 ([facility] Unhold - Provider: Automatic Transfer) guaiFENesin (ROBITUSSIN) oral solution 400 mg 400 mg, Oral, EVERY 6 HOURS NEEDED, Starting on 01/16/24 at 0202, Until 01/23/24 at 1752, Cough, Congestion 1053 ([facility] Hold - Provider: Automatic Transfer - Reason: Transfer to a Procedural area)1414 ([facility] Unhold - Provider: Automatic Transfer) HYDROmorphone [...] 0016, Until 01/23/24 at 1752, Insomnia 1053 ([facility] Hold - Provider: Automatic Transfer - Reason: Transfer to a Procedural area)1414 ([facility] Unhold - Provider: Automatic Transfer)2355 (Given - Provider: Tati Ahmadi RN) Ondansetron (ZOFRAN) tablet 4 mg(Linked Group 1) 4 mg, Oral, EVERY 6 HOURS NEEDED, Starting on 01/16/24 at 0202, Until 01/23/24 at 1752, Nausea / Vomiting, 1st line for Nausea/Vomiting 1053 ([facility] Hold - Provider: Automatic Transfer - Reason: Transfer to a Procedural area)1414 ([facility] Unhold - Provider: Automatic Transfer)1809 (See [...] - Reason: Transfer to a Procedural area)1414 ([facility] Unhold - Provider: Automatic Transfer)1809 (Given [...] - Reason: Transfer to a Procedural area)1414 ([facility] Unhold - Provider: Automatic Transfer) Prochlorperazine (COMPAZINE) injection 10 mg 10 mg, Intravenous, EVERY 6 HOURS NEEDED, Starting on 01/17/24 at 1538, Until 01/23/24 at 1752, Nausea / Vomiting, Refractory Nausea Vomiting, For IV route: dilute dose with 10mL normal saline and give by slow IV push at a rate of 5mg/min. Maximum of 40mg/day. 1053 ([facility] Hold - Provider: Automatic Transfer - Reason: Transfer to a Procedural area)1414 ([facility] Unhold - Provider: Automatic Transfer)2349 (Given [...] the intermittent or piggy back medication. 1053 ([facility] Hold - Provider: Automatic Transfer - Reason: Transfer to a Procedural area)1414 ([facility] Unhold - Provider: Automatic Transfer) No Frequency [...] BE BASED ON THE PRIMARY CLINICAL RECORDS. [facility]. provides no warranty or guarantee of the accuracy or completeness of information in this document.
[2024-08-29 07:33] LABS: Basophils Percent Auto 0.6 % (0.2-2.0); Eosinophils Absolute Auto 0.2 10^3/uL (0.0-0.7); Eosinophils Percent Auto 3.2 % (0.9-7.0); Hematocrit 48.1 % (42.0-54.0); Hemoglobin 15.8 g/dL (14.0-18.0); Immature Granulocytes Abs Auto 0.01 10^3/uL (0.00-0.03); Immature Granulocytes Pct Auto 0.2 % (0.0-0.5); Lymphocytes Absolute Auto 1.4 10^3/uL (1.2-3.8); Lymphocytes Percent Auto 28.5 % (20.5-60.0); Mean Corpuscular HGB Conc 32.8 g/dL (29.9-35.2); Mean Corpuscular Hemoglobin 28.8 pg (25.9-34.0); Mean Corpuscular Volume 87.8 fL (80.0-94.0); Mean Platelet Volume 9.8 fL (9.5-13.5); Monocytes Absolute Auto 0.4 10^3/uL (0.3-0.8); Monocytes Percent Auto 8.6 % (1.7-12.0); Neutrophils Absolute Auto 2.9 10^3/uL (1.4-6.5); Neutrophils Percent Auto 58.9 % (43.0-75.0); Platelet Count 240 10^3/uL (150-450); Red Blood Count 5.48 10^6/uL (4.70-6.10); Red Cell Distribution Width 12.4 % (11.0-15.0)
[2024-08-29 07:57] LABS: Creatinine Urine Random 191.93 mg/dL (20.00-300.00); Protein Creatinine Ratio Urine 0.08; Total Protein Urine Random 15.6 mg/dL (<=11.9)
[2024-08-29 08:11] LABS: Alanine Aminotransferase 22 U/L (16-63); Alkaline Phosphatase 99 U/L (46-116); Anion Gap 12.1; Aspartate Amino Transferase 18 U/L (15-37); BUN Creatinine Ratio 13.8; Bilirubin Direct 0.3 mg/dL (0.0-0.2); Bilirubin Total 1.3 mg/dL (0.2-1.0); Calcium 9.6 mg/dL (8.5-10.1); Carbon Dioxide 26.6 mmol/L (21.0-32.0); Chloride 104 mmol/L (98-107); Estimated GFR (African America >60 (>=60); Estimated GFR (Non-African Ame 58 (>=60); Gamma Glutamyl Transpeptidase 20 U/L (15-85); Glucose 112 mg/dL (74-106); Magnesium 2.1 mg/dL (1.8-2.4); Phosphorus 3.1 mg/dL (2.6-4.7); Potassium 3.7 mmol/L (3.5-5.1); Sodium 139 mmol/L (136-145)
== END 2024-08-29 06:57 | disposition home or self-care (01) ==
LOC: LAB 06:58
PROVIDERS: PCP Nurse Practitioner
DX: D64.9 Anemia, unspecified (principal); Z12.5 Encounter for screening for malignant neoplasm of prostate; R30.0 Dysuria; Z94.4 Liver transplant status; Z94.0 Kidney transplant status; B39.9 Histoplasmosis, unspecified; R79.9 Abnormal finding of blood chemistry, unspecified; Z48.298 Encounter for aftercare following other organ transplant
CPT/HCPCS: 36415; 80048; 80061; 80189; 80197; 81003; 82042; 82247; 82248; 82570; 82977; 83036; 83735; 84075; 84100; 84156; 84443; 84450; 84460; 85025; 87086; G0103

== ENCOUNTER 2024-09-05 10:15 | Outpatient (OUT) | payer MEDICARE, MEDICAID, SELFPAY ==
--- NOTE | 2024-09-05 10:20 | XR_ITS ---
The [address] [address] Patient Name: GEORGE MCCARTNEY MRN: [id number] date: 1970 Sex: M Assigned Patient Location: [facility] Current Patient Location: [facility] Accession/Order Number: [id number] Exam Date: 09/05/2024 10:30 Report Date: 09/05/2024 11:21 At the request of: ZULY HERNANDEZ Procedure: XR DEXA axial skeleton EXAMINATION: XR DEXA axial skeleton, 09/05/2024 10:30 AM EDT HISTORY: Organ Transplant, Immunocompromised COMPARISON: None. TECHNIQUE: Dual-energy X-ray absorptiometry (DEXA) bone density study performed for the axial skeleton. FINDINGS: Bone mineral density of the lumbar spine L2-L4 measures 1.208 g/sq cm for T score -0.3. The lowest bone mineral densities the right femoral neck measuring 0.740 g/sq cm. T score -2.5. Osteoporosis XR/XR DEXA axial skeleton IMPRESSION: Osteoporosis. High fracture risk Pharmacologic treatment recommendations * No uniform recommendation applies to all patients. Management plans must be individualized. * Consider initiating pharmacologic treatment in postmenopausal women and men >= 50 years of age who have the following: Primary fracture prevention: * T-score <= - 2.5 at the femoral neck, total hip, lumbar spine, 33% radius (some uncertainty with existing data) by DXA. * Low bone mass (osteopenia: T-score between - 1.0 and - 2.5) at the femoral neck or total hip by DXA with a 10-year hip fracture risk >= 3% or a 10-year major osteoporosis-related fracture risk >= 20% (i.e., clinical vertebral, hip, forearm, or proximal humerus) based on the US-adapted FRAXregistered model. Secondary fracture prevention: * Fracture of the hip or vertebra regardless of BMD [4, 5]. * Fracture of proximal humerus, pelvis, or distal forearm in persons with low bone mass (osteopenia: T-score between - 1.0 and - 2.5). The decision to treat should be individualized in persons with a fracture of the proximal humerus, pelvis, or distal forearm who do not have osteopenia or low BMD [12, 13]. Ernestine MS, Jonathan SL, Gabriela KL, Lilo EM, Narendra KG, AJ, Deion ES. The clinician's guide to prevention and treatment of osteoporosis. Osteoporos Int. 2021;33(10):8772-2252. doi: 10.1007/d21053-851-25096-b. Epub 2021Mar 27. Erratum in: Osteoporos Int. 2021Jun 26;: PMID: 63785420; PMCID: [id number]. Electronically authenticated by: GIAN RODRIGUEZ Date: 09/05/2024 11:21
--- NOTE | 2024-09-05 10:21 | US_ITS ---
[address] [address] Patient Name: GEORGE MCCARTNEY MRN: [id number] date: 1970 Sex: M Assigned Patient Location: [facility] Current Patient Location: [facility] Accession/Order Number: [id number] Exam Date: 09/05/2024 10:22 Report Date: 09/05/2024 11:00 At the request of: ZULY HERNANDEZ Procedure: US carotid duplex BI EXAMINATION: US carotid duplex BI HISTORY: Left Carotid bruit, Mixed Hyperlipidemia COMPARISON: No relevant comparison available. TECHNIQUE: Duplex Doppler ultrasound analysis of carotid and vertebral arteries. . Bilateral carotid arterial duplex examination was performed using B-mode, color flow and spectral analysis. Carotid stenosis is reported according to validated velocity parameters, similar to NASCET criteria. FINDINGS: RIGHT CAROTID ARTERY Mild atherosclerotic plaque Subclavian: 131.88 cm/s / 11.63 cm/s CCA: Prox: 100.32 cm/s / 15.57 cm/s Mid: 104.26 cm/s / 15.57 cm/s Distal: 87.87 cm/s / 14.11 cm/s BULB: 49.05 cm/s / 8.93 cm/s ICA: Prox: 63.28 cm/s / 11.52 cm/s Mid: 64.57 cm/s / 15.40 cm/s Distal: 47.14 cm/s / 11.98 cm/s ECA: 105.95 cm/s / 7.43 cm/s VERTEBRAL: 49.42 cm/s / 10.66 cm/s ICA/CCA ratio: 0.7 LEFT CAROTID ARTERY mild atherosclerotic plaque Subclavian: 141 cm/s / 7 cm/s CCA: Prox: 107.62 cm/s / 14.98 cm/s Mid: 100.42 cm/s / 13.72 cm/s Distal: 91.37 cm/s / 12.42 cm/s BULB: 82.31 cm/s / 7.25 cm/s ICA: Prox: 66.78 cm/s / 16.31 cm/s Mid: 55.13 cm/s / 16.31 cm/s Distal: 77.13 cm/s / 20.19 cm/s ECA: 110.79 cm/s / 9.04 cm/s VERTEBRAL: 38.03 cm/s / 7.50 cm/s ICA/CCA ratio: 0.9 US/US carotid duplex BI IMPRESSION: 0-49% flow stenosis bilateral internal carotid arteries Spectral Doppler US Thresholds (Reference: Wilson EG, et al. Radiology 2000; 214:247-252) Stenosis (%) PSV (cm/sec) VICA/VCCA 0-49 <150 <2.5 50-69 150-225 2.5-4.0 >70 >225 >4.0 Electronically authenticated by: GIAN RODRIGUEZ Date: 09/05/2024 11:00
== END 2024-09-05 10:16 | disposition home or self-care (01) ==
LOC: RAD 10:15
PROVIDERS: PCP Nurse Practitioner; Visit Provider Nurse Practitioner
DX: D84.9 Immunodeficiency, unspecified (principal); Z94.9 Transplanted organ and tissue status, unspecified; R09.89 Other specified symptoms and signs involving the circulatory and respiratory systems; E78.2 Mixed hyperlipidemia; M81.0 Age-related osteoporosis without current pathological fracture
CPT/HCPCS: 77080; 93880

== ENCOUNTER 2024-09-13 06:46 | Outpatient (OUT) | payer MEDICARE, MEDICAID, SELFPAY ==
--- OUTSIDE RECORDS SUMMARY | 2024-09-13 06:57 | XMS_ITS | CCD ---
Author Organization [facility] Care Team Providers Care Unix Analyst Name Role Phone Kiana Zuly Unavailable Unavailable [...] Primary Care Unavailable Aichholz [facility], [facility] Primary Care Provider Miguel [facility] Un[facility] Shirin [facility],PharmD, Angel Unavailable Unavailab makayla Leigh [facility],PharmD, Te Unavailable Unavai lable Aicholz [facility], Zuly Primary Care Provider [phone] CHANDUC, DR BURCH Admitting Unavailable MISC, DR BURCH Consulting Unavailable AICHHOLZ, MACHINE PLATE STACKER ZULY Primary Care Unavailable MISC, DR BURCH Attending Unavailable MISC, DR BURCH Admitting Unavailable MISC, DR BURCH Consulting Unavailable AICHHOLZ, MACHINE PLATE STACKER ZULY Primary Care Unavailable MISC, DR BURCH Attending Unavailable ARCELIA PIZARRO Consulting Unavailable KE BURNHAM Attending Unavailable KE BURNHAM Admitting Unavailable BARBARA, DR MÓNICA Munoz Consulting Unavailable AICHHOLZ, MACHINE PLATE STACKER ZULY Primary Care Unavailable KE BURNHAM Consulting Unavailable MISC, DR BURCH Consulting Unavailable MISC, DR BURCH Attending Unavailable AICHHOLZ, MACHINE PLATE STACKER ZULY Primary Care Unavailable MISC, DR BURCH Admitting Unavailable MISC, DR BURCH Consulting Unavailable MISC, DR DOCTOR Attending Unavailable AICHHOLZ, MACHINE PLATE STACKER ZULY Primary Care Unavailable MISC, DR BURCH Admitting Unavailable MISC, DR DOCTOR Consulting Unavailable AICHHOLZ, MACHINE PLATE STACKER ZULY Primary Care Unavailable MISC, DOCTOR Admitting Unavailable MISC, DR DOCTOR Attending Unavailable MELINDA, DR GEORGE uMnoz Consulting Unavailable MELINDA, DR GEORGE Munoz Attending Unavailable AICHHOLZ, MACHINE PLATE STACKER ZULY Primary Care Unavailable MELINDA, DR GEORGE Munoz Admitting Unavailable NAUN ., KE Consulting Unavailable MIRANDA, LYNDSAY Consulting Unavailable MELINDA, DR GEORGE Munoz Consulting Unavailable NAUN ., KE Attending Unavailable NAUN ., KE Admitting Unavailable AICHHOLZ, MACHINE PLATE STACKER ZULY Primary Care Unavailable NAUN ., KE Consulting Unavailable GIAN HERRING Consulting Unavailable AICHHOLZ, MACHINE PLATE STACKER ZULY Consulting Unavailable AICHHOLZ, MACHINE PLATE STACKER ZULY Attending Unavailable AICHHOLZ, MACHINE PLATE STACKER ZULY Admitting Unavailable AICHHOLZ, MACHINE PLATE STACKER ZULY Primary Care Unavailable MISC, DR DOCTOR Consulting Unavailable MISC, DOCTOR Admitting Unavailable MISC, DR DOCTOR Attending Unavailable AICHHOLZ, MACHINE PLATE STACKER ZULY Primary Care Unavailable MISC, DR DOCTOR Consulting Unavailable MISC, DR DOCTOR Attending Unavailable MISC, DR DOCTOR Admitting Unavailable AICHHOLZ, MACHINE PLATE STACKER ZULY Primary Care Unavailable MISC, DOCTOR Admitting Unavailable MISC, DR DOCTOR Consulting Unavailable MISC, DR DOCTOR Attending Unavailable AICHHOLZ, MACHINE PLATE STACKER ZULY Primary Care Unavailable MISC, DOCTOR Admitting Unavailable MISC, DR DOCTOR Consulting Unavailable AICHHOLZ, MACHINE PLATE STACKER ZULY Primary Care Unavailable MISC, DR DOCTOR Attending Unavailable MISC, DOCTOR Admitting Unavailable MISC, DR DOCTOR Consulting Unavailable AICHHOLZ, MACHINE PLATE STACKER ZULY Primary Care Unavailable MISC, DR DOCTOR Attending Unavailable AICHHOLZ, MACHINE PLATE STACKER ZULY Consulting Unavailable AICHHOLZ, MACHINE PLATE STACKER ZULY Attending Unavailable AICHHOLZ, MACHINE PLATE STACKER ZULY Admitting Unavailable AICHHOLZ, MACHINE PLATE STACKER ZULY Primary Care Unavailable DR MÓNICA JIMENEZ Consulting Unavailable Aichholz [facility], Zuly Primary Care Provider Evan White DO Unavailable Aicholz [facility], Zuly Primary Care Provider Ann White DOs Tray Unavailable [phone] Momo Verdugo MD Primary Care Provider [phone] Aichholz [employer]ACHINE PLATE STACKER, Zuly Primary Care Provider [phone] MIGUEL CARDONA Attending Unavailable AICHHOLZ, ZULY Attending Unavailable AICHHOLZ, [...] ZULY Attending Unavailable AICHHOLZ, ZULY Attending Unavailable CANDIE ALMAGUER Attending Unavailable KELVIN PACHECO Referring Unavailable AICHHOLZ, ZULY Primary Care Unavailable AICHHOLZ, ZULY Primary Care Unavailable HAKEEM ALAMO Attending Unavailable SELF, SELF Referring Unavailable AICHHOLZ, ZULY Primary Care Unavailable SELF, SELF Referring Unavailable REBECA GUTIERREZ Attending Unavailable DAISHA MAX Attending Unavailable AICHHOLZ, ZULY Primary Care Unavailable SELF, SELF Referring Unavailable AICHHOLZ, ZULY Primary Care Unavailable AICHHOLZ, ZULY Primary Care Unavailable AICHHOLZ, ZULY Primary Care Unavailable AICHHOLZ, ZULY Primary Care Unavailable SELF, SELF Referring Unavailable EVAN WHITE Attending Unavailabl e AICHHOLZ, ZUYL Primary Care Unavailable HAKEEM ALAMO Attending Unavailable EVAN WHITE Referring Unavailabl e KEVIN PRINCE Admitting Unavailable KELVIN PACHECO K Attending Unavailable CONSULT, HEPATOBILIARY Consulting Unavailab le SYSTEM, PROVIDER NOT IN Referring Unavaila ble AICHHOLZ, ZULY Primary Care Unavailable KELVIN PACHECO Referring Unavailable CANDIE ALMAGUER Attending Unavailable AICHHOLZ, ZULY Primary Care Unavailable Orzech, Steph X Attending Unavailable ZULY BRUNO Referring Unavailable Clementina Montesinos Attending Unavailable ZULY BRUNO Primary Care Physician Allergies Allergy Classification Reported Allergen(s) Allergy Type Date of Onset Reaction(s) Facility (2 sources) Shellfish; Translations: [SHELLFISH DERIVED] Propensity to adverse reactions (disorder) 8 [facility] Repository (20 sources) Shellfish-Deriv ed Products Propensity to adverse reactions to drug 9 [facility] (3 sources) Shellfish; Translations: [shellfish] Drug allergy (disorder) Anaphylaxis (disorder) The [facility] Repository Medications Current Medications Medication Drug Class(es) [...] 1 capsule by mouth once daily b qnsksje-J-gmhbk acid (NEPHROCAPS) 1 MG capsule Take 1 capsule by mouth daily 0 Active aspirin 81 mg delayed release oral tablet (20 sources) Platelet Aggregation Inhibitor, Nonsteroidal Anti-inflammatory Drug Start: 09-08-2024 take 1 tablet by mouth once daily aspirin 81 mg Oral EC Tab 81 mg = 1 tab(s), Oral, Daily, # 30 tab(s), Refills(s) 0 Start Date: 09/08/24 Status: Ordered Start: 10-08-2020 End: 01-23-2024 aspirin 81 MG Chew Tab chewa ble tablet Chew 1 tablet daily. Last refill [...] oral capsule (20 sources) Anti-epileptic Agent Start: 024 take 1 capsule by mouth at bedtime gabapentin 400 mg Cap take 1 capsule by mouth at bedtime Start Date: 09/08/24 Status: Ordered Start: 06-07-2023 End: 03-24-2024 take 1 capsule by mouth at bedtime Gabapentin 400 MG capsule Take 1 capsule by mouth at bedtime. 06/07/2023 Active Start: 05-15-2022 End: 05-20-2022 take 400 mg by mouth once daily at bedtime 400 mg, Oral, DAILY AT BEDTIME, First dose on [facility] 05/15/22 at 2215, Until Discontinued Start: 06-12-2020 End: 06-12-2023 take 4 capsules by mouth once daily at bedtime for pain gabapentin 100 MG capsule Take 4 capsules by mouth at bedtime. Take daily at bedtime for foot and ankle pain. 0 06/12/2020 06/12/2023 Discontinued lactulose 99183 mg powder for oral solution (19 sources) [...] tablet (20 sources) Antimetabolite Immunosuppressant Star t: 08-30 mycophenolic acid 360 mg oral enteric coated tablet 720 mg = 2 tab(s), Refills(s) 0 Start Date: 09/08/24 Status: Ordered Start: 04-27-2024 take 1 tablet by magy th every twelve hours Mycophenolate sodium (MYFORTIC) [address] tablet DR Take 1 tablet by mouth every 12 hours. 60 tablet 5 04/27/2024 Active Start: 01-16-2024 End: 01-23-2024 take 1 tablet by mouth twice daily 360 mg, Oral, 2 TIMES DAILY (Solid Organ Transplant), First dose on [facility] 01/16/24 at 0800, Until Discontinued, Give on [...] tablet (20 sources) Serotonin-3 Receptor Antagonist Start: 09-08-2024 take 1 tablet by mouth every eight hours for nausea ondansetron 4 mg Dis Tab Take 1 tablet by mouth every 8 hours if needed for nausea or vomiting for up to 10 days Start Date: 09/08/24 Status: Ordered Start: 06-14-2020 End: 06-12-2023 ondansetron (Zofran ODT) 4 M G Tab Dispersible tablet Dissolve 1 tablet on tongue every 6 hours as needed for nausea or vomiting. 20 tablet 0 06/14/2020 06/12/2023 Discontinued take 1 tablet by magy every eight hours as needed ondansetron 4 MG tablet Take 1 tablet by mouth every 8 hours as needed for Nausea / Vomiting. Active polyethylene glycol 3350 06589 mg powder for oral solution (20 sources) Osmotic Laxative Start: 09-08-2024 take 1 g by mouth once daily polyethylene glycol 3350 17 gram packet gm, Oral, Daily, Refills(s) 0 Start Date: 09/08/24 Status: Ordered Start: 01-16-2024 End: 01-23-2024 17 g, Oral, DAILY NEEDED, Starting on 01/16/24 at 0202, Until 01/23/24 at 1752, Constipation 1st Line Start: 08-28-2023 End: 09-11-2023 17 g, Oral, DAILY NEEDED, Starting on 08/28/23 at 1738, Until 09/11/23 at 1645, Constipation 1st Line Start: 05-16-2022 End: 05-20-2022 polyethylene glycol (MIRALAX ) packet 17 g rifAXIMin 550 mg oral tablet (12 sources) [...] 07/17/2018 Active take 2 tablets by mo [facility] three times daily at mealtime [...] 0900, Until Discontinued Start: 08-26-2023 End: 09-01-2030 sulfamethoxazole-trimethopri m 800 mg-160 mg Tab Refill(s) 0 Start Date: 09/08/24 Status: Ordered Start: 08-26-2023 take 1 tablet by mgay th twice daily Sulfamethoxazole-trimethoprim 800-160 MG per tablet Take 1 tablet by mouth 2 times daily. 0 08/26/2023 Suspended Start: 07-07-2022 End: 07-07-2022 sulfamethoxazole-trimethopri m (BACTRIM DS) 800-160 MG per tablet 1 tablet tacrolimus 0.2 mg granules for oral suspension (20 sources) Calcineurin Inhibitor Immunosuppressant Start: 09-08-2024 Prograf 0.2 mg oral granule for reconstitution 0.1 mg/kg, Refills(s) 0 Start Date: 09/08/24 Status: Ordered Start: 07-01-2024 End: 09-06-2024 Tacrolimus 0.2 MG Pack Mix 1 packet as directed and take by mouth daily every Thursday through Thursday (5 days a week). 20 Each 07/01/2024 09/06/2024 Discontinued (Reorder) Start: 06-22-2024 End: 07-01-2024 take 1 dose [...] Oral, EVERY 12 HOURS, First dose on 9/29/23 at 2100, Until Discontinued Do not split, [...] oral capsule (20 sources) alpha-Adrenergic Ibrahima Start: 09-08-2024 End: 09-03-2025 take 1 capsule by mouth twice daily tamsulosin 0.4 mg Cap 0.4 mg = 1 cap(s), Oral, BID, X 30 day(s), # 60 cap(s), Refills(s) 11, Pharmacy: [id number], 170, cm, 09/08/24 14:00:00 EDT, Height/Length Dosing, 90, kg, 09/08/24 14:00:00 EDT, Weight Dosing Start Date: 09/08/24 Stop Date: 09/03/25 Status: Ordered Start: 11-03-2023 End: 01-23-2024 take 1 capsule [...] tablet (20 sources) Xanthine Oxidase Inhibitor Start: 09-08-2024 take 2 tablets by mouth once daily allopurinol 100 mg Tab 100 mg = 1 tab(s), TAKE 2 TABLETS BY MOUTH DAILY Start Date: 09/08/24 Status: Ordered Start: 01-16-2024 End: 01-23-2024 take 200 mg by mouth once daily 200 mg, Oral, DAILY, F irst dose on 01/16/24 at 0900, Until Discontinued [...] (20 sources) Dihydropyridine Calcium Channel Ibrahima Start: 09-08-2024 take 1 tablet by mouth once daily amLODIPine 5 mg Tab 5 mg = 1 tab(s), TAKE 1 TABLET BY MOUTH DAILY Start Date: 09/08/24 Status: Ordered Start: 01-16-2024 End: 01-23-2024 take 5 mg [...] 500 mL, Intravenous, ONCE, 1 dose, On 10/7/23 at 0800 Fluid Bolus Start: 05-18-2022 End: [...] itraconazole Fax results to: Dr. White - [phone] Trans[facility] - [phone] Each 09/10/2023 01/19/2024 Discontinued (Medication Reconciliation (suppress cancel msg)) Start: 09-10-2023 CUSTOM MEDICAT ION Labs to be obtained: 1- Tacrolimus level, trough - collect twice weekly until 09/24/23, then weekly until 10/08/23, them once every two weeks there after. 2- Itraconazole level - obtain once between 09/14-09/18. 3- Chem 6 - Obtain weekly while on itraconazole Fax results to: Dr. White - [phone] [facility] - [phone] Each 0 09/10/2023 Active Diatrizoate (1 [...] tablet (20 sources) Histamine-2 Receptor Antagonist Start: 09-08-2024 take 1 tablet by mouth twice daily at bedtime famotidine 20 mg Tab 20 mg = 1 tab(s), TAKE 1 TABLET BY MOUTH TWICE DAILY (IN THE MORNING and BEFORE bedtime) Start Date: 09/08/24 Status: Ordered Start: 01-16-2024 End: 01-23-2024 take 20 mg [...] and 2 hours after administration. Start: 01-07-2024 End: 09-07-2024 take 100 mg by mouth every twelve hours Itraconazole 10 MG/ML Solution Take 10 mL by mouth every 12 hours. 1200 mL 3 01/07/2024 09/07/2024 Discontinued Start: 09-10-2023 End: 10-08-2023 take 20 mL [...] 09-10-2023 Start: 01-05-2023 take 1 tablet by [facility] twice daily Losartan 50 MG tablet take [...] times daily. 60 tablet 12/24/2020 12/19/2021 Active magnesium oxide 400 mg [...] 01/16/2023 Discontinued take 2 tablets by mo [facility] in the morning magnesium oxide (Mag-Ox) 400 MG tablet Take 2 tablets by mouth in the morning. 0 Active [facility] magnesium oxide (MAG-OX) 400 MG [...] alternate route or dose is needed. ondansetron 4mg/2ml (ZOFRAN) injection 4 mg (1 [...] NEEDED, Starting on Thu01/22/24 at 1322, Until Thu01/23/24 at 1752, Moderate Pain, Severe Pain Start: [...] needed oxyCODONE HCl (ROXICODONE) tablet 10 mg potassium bicarbonate 20 meq effervescent oral tablet [...] rate of 5mg/min. Maximum of 40mg/day. sennosides, halfway 8.6 mg oral tablet (1 source) Start: [...] chloride 0.9% IV solu tion 250 mL torsemide 20 mg oral tablet (19 sources) Loop Diuretic Start: 04-15-2024 take 1 tablet by mouth once daily torsemide 20 mg Tab 20 mg = 1 tab(s), TAKE 1 TABLET BY MOUTH ONCE DAILY Start Date: 09/08/24 Status: Ordered Start: 01-22-2024 End: 01-23-2024 take 1 tablet by mouth once daily Torsemide 20 MG tabl et Take 1 tablet by mouth daily. 90 tablet 01/22/2024 Active Start: 01-20-2024 End: 01-21-2024 take 20 mg by mouth twice daily before mealtime 20 mg, Oral, 2 TIMES DAILY BEFORE MEALS, First dose on Thu01/20/24 at 1600, Until Discontinued, Max: 200 mg/day (2 sources) Start: 09-12-2023 End: 09-11-2023 0.25 [...] Coronary arteriosclerosis; Translations: [Atherosclerotic heart disease of [place] coronary artery without angina pectoris] Onset: 3 [...] [HEADACHE UNSPECIFIED] Onset: 2 Hyperplasia of prostate (6 sources) Benign prostatic hypertrophy with outflow obstruction; Translations: [Benign prostatic hyperplasia with lower urinary tract symptoms] Onset: 2 Chronic Hypertension with complications and secondary hypertension (1 source) Renal hypertension; Translations: [Hypertension secondary to other renal disorders] 08-28-2023 Chronic Immunity disorders (15 sources) Immunosuppression; Translations: [Immunodeficiency, unspecified] Onset: 2 Chronic Other aftercare (3 sources) Transplant follow-up; Translations: [Encounter for aftercare following other organ transplant] Chronic Other aftercare (1 source) Encounter for aftercare following other organ transplant; Translations: [ENC AFTERCARE FLW OTH ORGN TRANSPL] Onset: 3 Chronic Other aftercare (1 source) Follow-up status; Translations: [Encounter for follow-up examination after completed treatment for conditions other than malignant neoplasm] Episodic Other aftercare (3 sources) Taking high risk medication; Translations: [Other jail (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] Episodic Other aftercare (1 source) Patient encounter status; Translations: [Encounter for therapeutic drug level monitoring] 06-17-2024 Episodic Other and ill-defined heart disease (3 sources) Dysfunction of papillary muscle; Translations: [Other ill-defined heart diseases] Onset: 3 11-03-2023 Chronic Other diseases of kidney and ureters (4 sources) Hydronephrosis; Translations: [Hydronephrosis with ureteral stricture, not elsewhere classified] Episodic Other diseases of kidney and ureters (1 source) Urinary tract obstruction; Translations: [Other obstructive and reflux uropathy] Onset: 4 Episodic Other liver diseases (2 sources) Cirrhosis [...] disease, unspecified; Translations: [Liver disease, unspecified] Onset: Chronic Other lower respiratory disease (1 [...] conditions (not mental disorders or infectious disease) (1 source) CT of chest abnormal; Translations: [Abnormal findings on diagnostic imaging of other specified body structures] 09-02-2023 Chronic Peripheral and visceral atherosclerosis (1 source) Atherosclerosis of aorta; Translations: [Atherosclerosis of aorta] 01-06-2024 Chronic Residual codes; unclassified (20 sources) Awaiting transplantation of liver; Translations: [Awaiting organ transplant status] Onset: 9 04-12-2020 Chronic Residual codes; unclassified (4 sources) Obstructive sleep apnea syndrome; Translations: [Obstructive sleep apnea (adult) (pediatric)] Onset: 3 11-21-2023 Chronic Residual codes; unclassified (1 source) Other general symptoms and signs; Translations: [Other general symptoms] 08-25-2023 Episodic Residual codes; unclassified (3 sources) Bilateral lower limb edema; Translations: [Localized edema] Onset: 4 01-06-2024 Episodic Residual codes; unclassified (2 sources) Insomnia; Translations: [Insomnia, unspecified] Onset: 4 01-06-2024 Episodic Respiratory failure; insufficiency; arrest (adult) (1 source) Acute respiratory failure; Translations: [Acute respiratory failure with hypoxia] 09-02-2023 Episodic Unclassified (17 sources) Awaiting transplantation [...] (20 sources) Histoplasmosis; Translations: [Histoplasmosis, unspecified] Onset: 09-10-2023 09-10-2023 Episodic Nausea and vomiting (20 sources) Nausea and vomiting; Translations: [Nausea with vomiting, unspecified] Onset: 05-10-2020 05-10-2020 Episodic Other aftercare (1 source) Other manager long term care (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; Translations: [OTH SETUP OPERATOR 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 THERAPY] Onset: 07-06-2022 Episodic Other aftercare (1 source) repairer controller tester (current) use of aspirin; Translations: [SETUP OPERATOR CURRENT USE OF ASPIRIN] Onset: 06-20-2022 [...] [Shortness of breath] Onset: 01-16-2024 Episodic Other screening for suspected conditions (not mental disorders or infectious disease) (20 sources) Abnormal quantity of physiologic substance; Translations: [Blood chemistry abnormal] Onset: 06-22-2018 06-22-2018 Episodic Pleurisy; pneumothorax; pulmonary collapse (20 sources) Pleural effusion; Translations: [Pleural effusion, not [...] Range Facility 36on 06-01-2024 36 Regarding echo performed on 05/18/2024: MD Cinda Batres MA Please tell him the echo was ok and showed a small residual fluid around the heart. This is significant improvement from before. Follow up as planned. Patient informed and he verbalized understanding. Normal [facility] Office Visiton 05-13-2024 Follow-up visit [id number] George Styles 1970 M Date Provider Department Center 05/13/2024 [facility]IGUEL CARDONA BESSY Lopez Family History Problem Relation Age of Onset Coronary artery disease Mother Coronary artery disease Father Family Status - Relation Status Age at Mother Father Level of Service:79029 [place] OFFICE/OUTPATIENT ESTABLISHED LOW MDM 20 MIN Reason for Visit and Comments: Follow-up [170757] - Yearly follow up Normal [facility] B-TYPE NATRIURETIC PEPTIDE ( BRAIN)on 02-26-2024 Interpretation and review of laboratory results Normal [facility] Natriuretic peptide B (Bld) [Mass/Vol] 72 pg/mL 0 - 100 pg/mL [facility] Natriuretic peptide B (Bld) [Mass/Vol] 72 pg/mL Normal 0-100 [facility] Comment on above: Performed By: #### C HM7, HFP, MGO #### [facility] (DEFAULT) [address] [place] [address] CHEM 6 (LYTES, BUN CREA)on 0 02-26-2024 Anion gap [Moles/Vol] 13 mmol/L 7 - 17 mmol/L [facility] Chloride [Moles/Vol] 107 mmol/L 98 - 10 8 mmol/L [facility] CO2 [Moles/Vol] 25 mmol/L 21 - 31 mmol/L [facility] Creatinine [Mass/Vol] 1.23 mg/dL 0.70 - 1.30 mg/dL [facility] eGFR, CKD-EPI, Male 71 - PINF [facility] Comment on above: Reported eGFR is bas ed on the CKD-EPI 2020 equation using creatinine, age, and sex. Potassium [Moles/Vol] 4.2 mmol/L 3.5 - 5.0 mmol/L [facility] Sodium [Moles/Vol] 141 mmol/L 135 - 145 mmol/L [facility] Urea nitrogen [Mass/Vol] 17 mg/dL 7 - 25 mg/dL [facility] Urea nitrogen/Creatinine [Mass ratio] 14 mg/mg [facility] Anion gap [Moles/Vol] 13 mmol/L Normal 7-17 [facility] Comment on above: Performed By: #### C Tray, CHM7, HFP, IPB, MGO #### [facility] (DEFAULT) [address] [place] [address] Chloride [Moles/Vol] 107 mmol/L Normal 98-108 [facility] Comment on above: Performed By: #### C Tray, CHM7, HFP, IPB, MGO #### [facility] (DEFAULT) [address] [place] [address] CO2 [Moles/Vol] 25 mmol/L Normal 21-31 [facility] Comment on above: Performed By: #### C A, CHM7, HFP, IPB, MGO #### [facility] (DEFAULT) [address] [place] [address] Creatinine [Mass/Vol] 1.23 mg/dL Normal 0.70-1.30 [facility] Comment on above: Performed By: #### C A, CHM7, HFP, IPB, MGO #### [facility] (DEFAULT) [address] [place] [address] GFR/1.73 sq M.predicted among non-blacks MDRD (S/P/Bld) [Vol rate/Area] 70 mL/min/{1.73_m2} Normal >=60 [facility] Comment on above: Result Comment: Repo rted eGFR is based on the CKD-EPI 2020 equation using creatinine, age, and sex. Performed By: #### C A, CHM7, HFP, IPB, MGO #### [facility] (DEFAULT) [address] [place] [address] Potassium [Moles/Vol] 4.2 mmol/L Normal 3.5-5.0 [facility] Comment on above: Performed By: #### C A, CHM7, HFP, IPB, MGO #### [facility] (DEFAULT) [address] [place] [address] Sodium [Moles/Vol] 141 mmol/L Normal 135-145 [facility] Comment on above: Performed By: #### C A, CHM7, HFP, IPB, MGO #### [facility] (DEFAULT) [address] [place] [address] Urea nitrogen [Mass/Vol] 17 mg/dL Normal 7-25 [facility] Comment on above: Performed By: #### C A, CHM7, HFP, IPB, MGO #### [facility] (DEFAULT) [address] [place] [address] Urea nitrogen/Creatinine [Mass ratio] 14 mg/mg Normal [facility] Comment on above: Performed By: #### C A, CHM7, HFP, IPB, MGO #### [facility] (DEFAULT) [address] [place] [address] CBC,PLATELETSon 01-23-2024 Erythrocyte distribution width (RBC) [Ratio] 14.2 % 10.9 - 14.3 % [facility] Hematocrit (Bld) [Volume fraction] 37.0 % Low 39.6 - 48.8 % [facility] Hemoglobin (Bld) [Mass/Vol] 12.0 g/dL Low 13.4 - 16.8 g/dL [facility] Interpretation and review of laboratory results Abnormal [facility] MCH (RBC) [Entitic mass] 28.6 pg 26.1 - 33.3 pg [facility] MCHC (RBC) [Mass/Vol] 32.4 g/dL 31.9 - 36.5 g/dL [facility] MCV (RBC) [Entitic vol] 88.1 fL 79.0 - 94.5 fL [facility] Platelet mean volume (Bld) [Entitic vol] 10.4 fL 8.7 - 12.3 fL [facility] Platelets (Bld) [#/Vol] 170 10*3/uL 146 - 337 K/uL [facility] RBC (Bld) [#/Vol] 4.20 10*6/uL Low [facility] WBC (Bld) [#/Vol] 3.70 10*3/uL Low 3.73 - 10. 10 K/uL [facility] Hematocrit (Bld) [Volume fraction] 37.0 % Low 39.6-48.8 [facility] Comment on above: Performed By: #### C JASMYNE, TAVO, MGO #### [facility] (DEFAULT) [address] [place] [address] Hemoglobin (Bld) [Mass/Vol] 12.0 g/dL Low 13.4-16.8 [facility] Comment on above: Performed By: #### C HM7, HFP, MGO #### [facility] (DEFAULT) [address] [place] [address]17 MCV (RBC) [Entitic vol] 88.1 fL Normal 79.0-94.5 [facility] Comment on above: Performed By: #### C HM7, HFP, MGO #### [facility] (DEFAULT) [address] [place] [address] 37326 Mean Cell Hgb 28.6 pg Normal 26.1-33.3 [facility] Comment on above: Performed By: #### C HM7, HFP, MGO #### [facility] (DEFAULT) [address] [place] [address] 28849 Mean Cell Hgb Conc 32.4 g/dL Normal 31.9-36.5 [facility] Comment on above: Performed By: #### C HM7, HFP, MGO #### [facility] (DEFAULT) [address] [place] [address] 00087 Platelet mean volume (Bld) [Entitic vol] 10.4 fL Normal 8.7-12.3 [facility] Comment on above: Performed By: #### C HM7, HFP, MGO #### [facility] (DEFAULT) [address] [place] [address] 53359 Platelets (Bld) [#/Vol] 170 10*3/uL Normal 146-337 [facility] Comment on above: Performed By: #### C HM7, HFP, MGO #### [facility] (DEFAULT) [address] [place] [address] 78620 RBC (Bld) [#/Vol] 4.20 10*6/uL Low 4.38-5.83 [facility] Comment on above: Performed By: #### C HM7, HFP, MGO #### [facility] (DEFAULT) [address] [place] [address] 95510 RBC Distribution 14.2 % Normal 10.9-14.3 [facility] Comment on above: Performed By: #### C HM7, HFP, MGO #### [facility] (DEFAULT) [address] [place] [address] 09778 WBC (Bld) [#/Vol] 3.70 10*3/uL Low 3.73-10.10 [facility] Comment on above: Performed By: #### C HM7, HFP, MGO #### [facility] (DEFAULT) [address] [place] [address] CHEM 7 (LYTES,BUN,CREA,GLUC) on 01-23-2024 Anion gap [Moles/Vol] 14 mmol/L 7 - 17 mmol/L [facility] Chloride [Moles/Vol] 105 mmol/L 98 - 10 8 mmol/L [facility] CO2 [Moles/Vol] 25 mmol/L 21 - 31 mmol/L [facility] Creatinine [Mass/Vol] 1.32 mg/dL High 0.70 - 1.30 mg/dL [facility] eGFR, CKD-EPI, Male 66 - PINF [facility] Comment on above: Reported eGFR is bas ed on the CKD-EPI 2020 equation using creatinine, age, and sex. Glucose [Mass/Vol] 94 mg/dL 70 - 99 mg/dL [facility] Osmolality Calc [Osmolality] 296 [facility] Potassium [Moles/Vol] 3.8 mmol/L 3.5 - 5.0 mmol/L [facility] Sodium [Moles/Vol] 140 mmol/L 135 - 145 mmol/L [facility] Urea nitrogen [Mass/Vol] 23 mg/dL 7 - 25 mg/dL [facility] Urea nitrogen/Creatinine [Mass ratio] 17 mg/mg [facility] Anion gap [Moles/Vol] 14 mmol/L Normal 7-17 [facility] Comment on above: Performed By: #### C HM7, HFP, MGO #### [facility] (DEFAULT) [address] [place] [address] Chloride [Moles/Vol] 105 mmol/L Normal 98-108 [facility] Comment on above: Performed By: #### C HM7, HFP, MGO #### [facility] (DEFAULT) [address] [place] [address] CO2 [Moles/Vol] 25 mmol/L Normal 21-31 [facility] Comment on above: Performed By: #### C TAVO MEDLEY, MGO #### [facility] (DEFAULT) [address] [place] [address] 43466 Creatinine [Mass/Vol] 1.32 mg/dL High 0.70-1.30 [facility] Comment on above: Performed By: #### Chinedu MEDLEY, TAVO, MGO #### [facility] (DEFAULT) [address] [place] [address] 67565 GFR/1.73 sq M.predicted among non-blacks MDRD (S/P/Bld) [Vol rate/Area] 65 mL/min/{1.73_m2} Normal >=60 [facility] Comment on above: Result Comment: Repo rted eGFR is based on the CKD-EPI 2020 equation using creatinine, age, and sex. Performed By: #### C JASMYNE, TAVO, MGO #### [facility] (DEFAULT) [address] [place] [address] 32223 Glucose [Mass/Vol] 94 mg/dL Normal 70-99 [facility] Comment on above: Performed By: #### Chinedu MEDLEY, HFP, MGO #### [facility] (DEFAULT) [address] [place] [address] 02205 Osmolality [Osmolality] 296 mosm/kg Normal 278-305 [facility] Comment on above: Performed By: #### Chinedu MEDLEY, HFP, MGO #### [facility] (DEFAULT) [address] [place] [address] 00798 Potassium [Moles/Vol] 3.8 mmol/L Normal 3.5-5.0 [facility] Comment on above: Performed By: #### Chinedu HMJessica, HFP, MGO #### [facility] (DEFAULT) [address] [place] [address] 30163 Sodium [Moles/Vol] 140 mmol/L Normal 135-145 [facility] Comment on above: Performed By: #### C HM7, HFP, MGO #### [facility] (DEFAULT) [address] [place] [address] Urea nitrogen [Mass/Vol] 23 mg/dL Normal 7-25 [facility] Comment on above: Performed By: #### C HM7, HFP, MGO #### [facility] (DEFAULT) [address] [place] [address] Urea nitrogen/Creatinine [Mass ratio] 17 mg/mg Normal [facility] Comment on above: Performed By: #### C HM7, HFP, MGO #### [facility] (DEFAULT) [address] [place] [address] GLUCOSE POCon 01-23-2024 Glucose [Mass/Vol] 88 mg/dL 70 - 99 mg/dL [facility] POC Sample Type CAPBL [facility] Test performed at address of the patient encounter. [facility] Glucose [Mass/Vol] 191 mg/dL High 70 - 99 mg/dL [facility] Interpretation and review of laboratory results Abnormal [facility] POC Sample Type CAPBL [facility] Test performed at address of the patient encounter. [facility] HEPATIC FUNCTION PANELon Albumin [Mass/Vol] 3.9 g/dL 3.5 - 5.0 g/dL [facility] ALP [Catalytic activity/Vol] 83 U/L 32 - 126 U/L [facility] ALT [Catalytic activity/Vol] 9 U/L Low 10 - 52 U/L [facility] AST [Catalytic activity/Vol] 17 U/L 10 - 39 U/L [facility] Bilirubin [Mass/Vol] 1.6 mg/dL High NINF - 1.5 mg/dL [facility] Bilirubin.direct [Mass/Vol] 0.4 mg/dL High NINF - 0.3 mg/dL [facility] Protein [Mass/Vol] 6.6 g/dL 6.4 - 8.3 g/dL [facility] Albumin [Mass/Vol] 3.9 g/dL Normal 3.5-5.0 [facility] Comment on above: Performed By: #### C HM7, HFP, MGO #### [facility] (DEFAULT) [address] [place] [address] 82931 ALP [Catalytic activity/Vol] 83 U/L Normal 32-126 [facility] Comment on above: Performed By: #### C HM7, HFP, MGO #### [facility] (DEFAULT) [address] [place] [address] 84620 ALT [Catalytic activity/Vol] 9 U/L Low 10-52 [facility] Comment on above: Performed By: #### C HM7, HFP, MGO #### [facility] (DEFAULT) [address] [place] [address] 53738 AST [Catalytic activity/Vol] 17 U/L Normal 10-39 [facility] Comment on above: Performed By: #### C HM7, HFP, MGO #### [facility] (DEFAULT) [address] [place] [address] 05251 Bilirubin [Mass/Vol] 1.6 mg/dL High <1.5 [facility] Comment on above: Performed By: #### C HM7, HFP, MGO #### [facility] (DEFAULT) [address] [place] [address] 35778 Bilirubin.indirect [Mass/Vol] 0.4 mg/dL High <0.3 [facility] Comment on above: Performed By: #### C HM7, HFP, MGO #### [facility] (DEFAULT) [address] [place] [address] 77063 Protein [Mass/Vol] 6.6 g/dL Normal 6.4-8.3 [facility] Comment on above: Performed By: #### C HM7, HFP, MGO #### [facility] (DEFAULT) [address] [place] [address] ITRACONAZOLE LEVELon 024 Hydroxyitraconazole [Mass/Vol] 7.6 mcg/mL [facility] Comment on above: REFERENCE VALUE No therapeutic range established; activity and serum concentration are similar to parent drug. ADDITIONAL INFORMATION This test was developed and its performance characteristics determined by [facility] in a manner consistent with CLIA requirements. This test has not been cleared or approved by the U.[place]. Food and Drug Administration. Test Performed by: [facility] [place] [address] Vertical Contour Band Saw Operator: Rosendo Bose M.D. Ph.D.; CLIA# [id number] Itraconazole [Mass/Vol] 6.0 mcg/mL [facility] Comment on above: REFERENCE VALUE >0.5 (localized infection), >1.0 (systemic infection) [facility] MAGNESIUMon 01-23-2024 Interpretation and review of laboratory results Normal [facility] Magnesium [Mass/Vol] 1.8 mg/dL 1.6 - 2 .6 mg/dL [facility] Magnesium [Mass/Vol] 1.8 mg/dL Normal 1.6-2.6 [facility] Comment on above: Performed By: #### C HM7, [facility], MGO #### [facility] (DEFAULT) [address] [place] [address] No Panel Informationon 01-23 Interpretation and review of laboratory results Abnormal [facility] TACROLIMUS LEVEL, TROUGH (TN E DRUG LEVEL)on 01-23-2024 Interpretation and review of laboratory results Normal [facility] Tacrolimus (Bld) [Mass/Vol] 7.0 ng/mL Bone Marrow Transplant: 4.0-12.0, Therapeutic: 5.0-15.0 [facility] Method performed is a chemiluminescent microparticle immunoasssay on the [employer] Clinical i2000. The range is based on experience at [facility] and users should be aware that target concentrations vary widely depending on concomitant therapy, time post-transplant, and desired degree of immunosuppression. [facility] Tacrolimus, Trough 7.0 ng/mL Normal Bone Susana ow Transplant: 4.0-12.0, Therapeutic: 5.0-15.0 [facility] Comment on above: Order Comment: Pleas e draw at specified interval PRIOR to dose. Do not hold dose to wait for level. Specimens batched twice per day, (M-F) and once per day weekendsMethod performed is a chemiluminescent microparticle immunoasssay on the [employer] Clinical i2000.The range is based on experience at [facility] and users should be aware that target concentrations vary widely depending on concomitant therapy, time post-transplant, and desired degree of immunosuppression. Performed By: #### C A, CHM7, HFP, IPB, MGO #### [facility] (DEFAULT) [address] [place] [address] CARDIAC RHYTHM (SCANNED)on 0 01-22-2024 [facility] CBC,PLATELETSon 01-22-2024 Erythrocyte distribution width (RBC) [Ratio] 14.1 % 10.9 - 14.3 % [facility] Hematocrit (Bld) [Volume fraction] 41.5 % 39.6 - 48.8 % [facility] Hemoglobin (Bld) [Mass/Vol] 13.3 g/dL Low 13.4 - 16.8 g/dL [facility] Interpretation and review of laboratory results Abnormal [facility] MCH (RBC) [Entitic mass] 27.8 pg 26.1 - 33.3 pg [facility] MCHC (RBC) [Mass/Vol] 32.0 g/dL 31.9 - 36.5 g/dL [facility] MCV (RBC) [Entitic vol] 86.8 fL 79.0 - 94.5 fL [facility] Platelet mean volume (Bld) [Entitic vol] 10.5 fL 8.7 - 12.3 fL [facility] Platelets (Bld) [#/Vol] 186 10*3/uL 146 - 337 K/uL [facility] RBC (Bld) [#/Vol] 4.78 10*6/uL [facility] WBC (Bld) [#/Vol] 3.74 10*3/uL 3.73 - 10. 10 K/uL [facility] Hematocrit (Bld) [Volume fraction] 41.5 % Normal 39.6-48.8 [facility] Comment on above: Performed By: #### Chinedu HM7, HFP, MGO #### [facility] (DEFAULT) [address] [address] Hemoglobin (Bld) [Mass/Vol] 13.3 g/dL Low 13.4-16.8 [facility] Comment on above: Performed By: #### Chinedu HM7, HFP, MGO #### [facility] (DEFAULT) [address] [address] MCV (RBC) [Entitic vol] 86.8 fL Normal 79.0-94.5 [facility] Comment on above: Performed By: #### Chinedu HM7, HFP, MGO #### [facility] (DEFAULT) [address] [place] [address] 36166 Mean Cell Hgb 27.8 pg Normal 26.1-33.3 [facility] Comment on above: Performed By: #### Chinedu HM7, HFP, MGO #### [facility] (DEFAULT) [address] [address] Mean Cell Hgb Conc 32.0 g/dL Normal 31.9-36.5 [facility] Comment on above: Performed By: #### Chinedu HM7, HFP, MGO #### [facility] (DEFAULT) [address] [place] [address] 50129 Platelet mean volume (Bld) [Entitic vol] 10.5 fL Normal 8.7-12.3 [facility] Comment on above: Performed By: #### Chinedu HM7, HFP, MGO #### [facility] (DEFAULT) [address] [place] [address] 39310 Platelets (Bld) [#/Vol] 186 10*3/uL Normal 146-337 [facility] Comment on above: Performed By: #### Chinedu HM7, HFP, MGO #### [facility] (DEFAULT) [address] [place] [address] 07748 RBC (Bld) [#/Vol] 4.78 10*6/uL Normal 4.38-5.83 [facility] Comment on above: Performed By: #### Chinedu HM7, HFP, MGO #### [facility] (DEFAULT) [address] [place] [address] 62160 RBC Distribution 14.1 % Normal 10.9-14.3 [facility] Comment on above: Performed By: #### Chinedu HM7, HFP, MGO #### [facility] (DEFAULT) [address] [place] [address] 04731 WBC (Bld) [#/Vol] 3.74 10*3/uL Normal 3.73-10.10 [facility] Comment on above: Performed By: #### Chinedu HM7, HFP, MGO #### [facility] (DEFAULT) [address] [place] [address] 93663 CHEM 7 (LYTES,BUN,CREA,GLUC) on 01-22-2024 Anion gap [Moles/Vol] 13 mmol/L 7 - 17 mmol/L [facility] Chloride [Moles/Vol] 109 mmol/L High 98 - 10 8 mmol/L [facility] CO2 [Moles/Vol] 23 mmol/L 21 - 31 mmol/L [facility] Creatinine [Mass/Vol] 1.10 mg/dL 0.70 - 1.30 mg/dL [facility] eGFR, CKD-EPI, Male 82 - PINF [facility] Comment on above: Reported eGFR is bas ed on the CKD-EPI 2020 equation using creatinine, age, and sex. Glucose [Mass/Vol] 84 mg/dL 70 - 99 mg/dL [facility] Interpretation and review of laboratory results Abnormal [facility] Osmolality Calc [Osmolality] 295 [facility] Potassium [Moles/Vol] 4.0 mmol/L 3.5 - 5.0 mmol/L [facility] Sodium [Moles/Vol] 141 mmol/L 135 - 145 mmol/L [facility] Urea nitrogen [Mass/Vol] 16 mg/dL 7 - 25 mg/dL [facility] Urea nitrogen/Creatinine [Mass ratio] 15 mg/mg [facility] Anion gap [Moles/Vol] 13 mmol/L Normal 7-17 [facility] Comment on above: Performed By: #### C HM7, HFP, MGO #### [facility] (DEFAULT) [address] [place] [address] Chloride [Moles/Vol] 109 mmol/L High 98-108 [facility] Comment on above: Performed By: #### C HM7, HFP, MGO #### [facility] (DEFAULT) [address] [place] [address] CO2 [Moles/Vol] 23 mmol/L Normal 21-31 [facility] Comment on above: Performed By: #### C HM7, HFP, MGO #### [facility] (DEFAULT) [address] [place] [address] Creatinine [Mass/Vol] 1.10 mg/dL Normal 0.70-1.30 [facility] Comment on above: Performed By: #### C HM7, HFP, MGO #### [facility] (DEFAULT) [address] [place] [address] 41633 GFR/1.73 sq M.predicted among non-blacks MDRD (S/P/Bld) [Vol rate/Area] 81 mL/min/{1.73_m2} Normal >=60 [facility] Comment on above: Result Comment: Repo rted eGFR is based on the CKD-EPI 2020 equation using creatinine, age, and sex. Performed By: #### C HM7, HFP, MGO #### [facility] (DEFAULT) [address] [place] [address] 08268 Glucose [Mass/Vol] 84 mg/dL Normal 70-99 [facility] Comment on above: Performed By: #### C HM7, HFP, MGO #### [facility] (DEFAULT) [address] [place] [address] 49459 Osmolality [Osmolality] 295 mosm/kg Normal 278-305 [facility] Comment on above: Performed By: #### C HM7, HFP, MGO #### [facility] (DEFAULT) [address] [place] [address] 39071 Potassium [Moles/Vol] 4.0 mmol/L Normal 3.5-5.0 [facility] Comment on above: Performed By: #### C HM7, HFP, MGO #### [facility] (DEFAULT) [address] [place] [address] 83599 Sodium [Moles/Vol] 141 mmol/L Normal 135-145 [facility] Comment on above: Performed By: #### C HM7, HFP, MGO #### [facility] (DEFAULT) [address] [place] [address] 83648 Urea nitrogen [Mass/Vol] 16 mg/dL Normal 7-25 [facility] Comment on above: Performed By: #### C HM7, HFP, MGO #### [facility] (DEFAULT) [address] [place] [address] 65440 Urea nitrogen/Creatinine [Mass ratio] 15 mg/mg Normal [facility] Comment on above: Performed By: #### C HM7, HFP, MGO #### [facility] (DEFAULT) [address] [place] [address] 24742 MAGNESIUMon 01-22-2024 Interpretation and review of laboratory results Normal [facility] Magnesium [Mass/Vol] 2.0 mg/dL 1.6 - 2 .6 mg/dL [facility] Magnesium [Mass/Vol] 2.0 mg/dL Normal 1.6-2.6 [facility] Comment on above: Performed By: #### M MERLE [facility]7 #### [facility] (DEFAULT) [address] [place] [address] No Panel Informationon 01-22 [facility] PT,INR,PTTon 01-22-2024 aPTT Coag (PPP) [Time] 29.2 s [facility] INR Coag (Bld) [Relative time] 1.1 {INR} 0.9 - 1.1 [facility] Interpretation and review of laboratory results Abnormal [facility] PT Coag (PPP) [Time] 14.3 s High [facility] aPTT Coag (Bld) [Time] 29.2 s Normal 24.0-34.3 [facility] Comment on above: Performed By: #### P TPTT #### [facility] (DEFAULT) [address] [address] INR Coag (PPP) [Relative time] 1.1 {INR} Normal 0.9-1.1 [facility] Comment on above: Performed By: #### P TPTT #### [facility] (DEFAULT) [address] [place] [address] 16141 PT Coag (PPP) [Time] 14.3 s High 11.9-14.2 [facility] Comment on above: Performed By: #### P TPTT #### [facility] (DEFAULT) [address] [place] [address]805 TACROLIMUS LEVEL, TROUGH (TN E DRUG LEVEL)Ordered By: Sheree Jensen on 01-22-2024 Interpretation and review of laboratory results Normal [facility] Tacrolimus (Bld) [Mass/Vol] 7.9 ng/mL Bone Marrow Transplant: 4.0-12.0, Therapeutic: 5.0-15.0 [facility] Method performed is a chemiluminescent microparticle immunoasssay on the [employer] Clinical i2000. The range is based on experience at [facility] and users should be aware that target concentrations vary widely depending on concomitant therapy, time post-transplant, and desired degree of immunosuppression. [facility] TACROLIMUS LEVEL, TROUGH (TN E DRUG LEVEL)on 01-22-2024 Tacrolimus, Trough 7.9 ng/mL Normal Bone Susana ow Transplant: 4.0-12.0, Therapeutic: 5.0-15.0 [facility] Comment on above: Order Comment: Pleas e draw at specified interval PRIOR to dose. Do not hold dose to wait for level. Specimens batched twice per day, (M-F) and once per day weekendsMethod performed is a chemiluminescent microparticle immunoasssay on the [employer] Clinical i2000.The range is based on experience at [facility] and users should be aware that target concentrations vary widely depending on concomitant therapy, time post-transplant, and desired degree of immunosuppression. Performed By: #### C A, CHM7, HFP, IPB, MGO #### [facility] (DEFAULT) [address] [place] [address] TYPE AND SCREENon 01-22-2024 ABO/RH(D) TYPE Positive [facility] ABO/RH(D) TYPE Positive Normal [facility] Comment on above: Performed By: #### C HM7, HFP, MGO #### [facility] (DEFAULT) [address] [address] [place] Unspecified body regionOr dered By: Unassigned Pacs on 01-22-2024 [facility] Work Phone: [place] Unspecified body regionon 01-22-2024 Radiology Study observation (narrative) [facility] CBC,PLATELETSon 01-21-2024 Erythrocyte distribution width (RBC) [Ratio] 14.0 % 10.9 - 14.3 % [facility] Hematocrit (Bld) [Volume fraction] 39.4 % Low 39.6 - 48.8 % [facility] Hemoglobin (Bld) [Mass/Vol] 12.7 g/dL Low 13.4 - 16.8 g/dL [facility] Interpretation and review of laboratory results Abnormal [facility] MCH (RBC) [Entitic mass] 28.0 pg 26.1 - 33.3 pg [facility] MCHC (RBC) [Mass/Vol] 32.2 g/dL 31.9 - 36.5 g/dL [facility] MCV (RBC) [Entitic vol] 87.0 fL 79.0 - 94.5 fL [facility] Platelet mean volume (Bld) [Entitic vol] 10.2 fL 8.7 - 12.3 fL [facility] Platelets (Bld) [#/Vol] 157 10*3/uL 146 - 337 K/uL [facility] RBC (Bld) [#/Vol] 4.53 10*6/uL [facility] WBC (Bld) [#/Vol] 3.42 10*3/uL Low 3.73 - 10. 10 K/uL [facility] Hematocrit (Bld) [Volume fraction] 39.4 % Low 39.6-48.8 [facility] Comment on above: Performed By: #### C Tray, CHM7, HFP, IPB, MGO #### [facility] (DEFAULT) [address] [address] Hemoglobin (Bld) [Mass/Vol] 12.7 g/dL Low 13.4-16.8 [facility] Comment on above: Performed By: #### C Tray, CHM7, HFP, IPB, MGO #### [facility] (DEFAULT) [address] [place] [address]68 MCV (RBC) [Entitic vol] 87.0 fL Normal 79.0-94.5 [facility] Comment on above: Performed By: #### C A, CHM7, HFP, IPB, MGO #### [facility] (DEFAULT) [address] [place] [address] 11233 Mean Cell Hgb 28.0 pg Normal 26.1-33.3 [facility] Comment on above: Performed By: #### C A, CHM7, HFP, IPB, MGO #### [facility] (DEFAULT) [address] [place] [address] 19335 Mean Cell Hgb Conc 32.2 g/dL Normal 31.9-36.5 [facility] Comment on above: Performed By: #### C A, CHM7, HFP, IPB, MGO #### [facility] (DEFAULT) [address] [place] [address] 12778 Platelet mean volume (Bld) [Entitic vol] 10.2 fL Normal 8.7-12.3 [facility] Comment on above: Performed By: #### C A, CHM7, HFP, IPB, MGO #### [facility] (DEFAULT) [address] [place] [address] Platelets (Bld) [#/Vol] 157 10*3/uL Normal 146-337 [facility] Comment on above: Performed By: #### C A, CHM7, HFP, IPB, MGO #### [facility] (DEFAULT) [address] [place] [address]41 RBC (Bld) [#/Vol] 4.53 10*6/uL Normal 4.38-5.83 [facility] Comment on above: Performed By: #### C A, CHM7, HFP, IPB, MGO #### [facility] (DEFAULT) [address] [place] [address] 12552 RBC Distribution 14.0 % Normal 10.9-14.3 [facility] Comment on above: Performed By: #### C A, CHM7, HFP, IPB, MGO #### [facility] (DEFAULT) [address] [place] [address] WBC (Bld) [#/Vol] 3.42 10*3/uL Low 3.73-10.10 [facility] Comment on above: Performed By: #### C A, CHM7, HFP, IPB, MGO #### [facility] (DEFAULT) [address] [place] [address] CHEM 7 (LYTES,BUN,CREA,GLUC) on 01-21-2024 Anion gap [Moles/Vol] 12 mmol/L 7 - 17 mmol/L [facility] Chloride [Moles/Vol] 107 mmol/L 98 - 10 8 mmol/L [facility] CO2 [Moles/Vol] 26 mmol/L 21 - 31 mmol/L [facility] [facility] Creatinine [Mass/Vol] 1.11 mg/dL 0.70 - 1.30 mg/dL [facility] eGFR, CKD-EPI, Male 80 - PINF [facility] Comment on above: Reported eGFR is bas ed on the CKD-EPI 2020 equation using creatinine, age, and sex. Glucose [Mass/Vol] 93 mg/dL 70 - 99 mg/dL [facility] Osmolality Calc [Osmolality] 295 [facility] Potassium [Moles/Vol] 3.9 mmol/L 3.5 - 5.0 mmol/L [facility] Sodium [Moles/Vol] 141 mmol/L 135 - 145 mmol/L [facility] Urea nitrogen [Mass/Vol] 15 mg/dL 7 - 25 mg/dL [facility] Urea nitrogen/Creatinine [Mass ratio] 14 mg/mg [facility] Anion gap [Moles/Vol] 12 mmol/L Normal 7-17 [facility] Comment on above: Performed By: #### C HM7, HFP, MGO #### [facility] (DEFAULT) [address] [place] [address] Chloride [Moles/Vol] 107 mmol/L Normal 98-108 [facility] Comment on above: Performed By: #### C HM7, HFP, MGO #### [facility] (DEFAULT) [address] [place] [address] 19758 CO2 [Moles/Vol] 26 mmol/L Normal 21-31 [facility] Comment on above: Performed By: #### C HM7, HFP, MGO #### [facility] (DEFAULT) [address] [place] [address] Creatinine [Mass/Vol] 1.11 mg/dL Normal 0.70-1.30 [facility] Comment on above: Performed By: #### C HM7, HFP, MGO #### [facility] (DEFAULT) [address] [place] [address]51 GFR/1.73 sq M.predicted among non-blacks MDRD (S/P/Bld) [Vol rate/Area] 80 mL/min/{1.73_m2} Normal >=60 [facility] Comment on above: Result Comment: Repo rted eGFR is based on the CKD-EPI 2020 equation using creatinine, age, and sex. Performed By: #### C HM7, HFP, MGO #### [facility] (DEFAULT) [address] [place] [address] Glucose [Mass/Vol] 93 mg/dL Normal 70-99 [facility] Comment on above: Performed By: #### Chinedu HM7, HFP, MGO #### [facility] (DEFAULT) [address] [place] [address]163 Osmolality [Osmolality] 295 mosm/kg Normal 278-305 [facility] Comment on above: Performed By: #### C HM7, HFP, MGO #### [facility] (DEFAULT) [address] [place] [address]69 Potassium [Moles/Vol] 3.9 mmol/L Normal 3.5-5.0 [facility] Comment on above: Performed By: #### C HM7, HFP, MGO #### [facility] (DEFAULT) [address] [place] [address] Sodium [Moles/Vol] 141 mmol/L Normal 135-145 [facility] Comment on above: Performed By: #### C HM7, HFP, MGO #### [facility] (DEFAULT) [address] [place] [address] Urea nitrogen [Mass/Vol] 15 mg/dL Normal 7-25 [facility] Comment on above: Performed By: #### C HM7, HFP, MGO #### [facility] (DEFAULT) [address] [place] [address] Urea nitrogen/Creatinine [Mass ratio] 14 mg/mg Normal [facility] Comment on above: Performed By: #### C HM7, HFP, MGO #### [facility] (DEFAULT) [address] [place] [address] Cardiac catheterization stud yOrdered By: Kelvin Donohue on 01-21-2024 Body surface area Derived from formula 2.08 m2 [facility] Work Phone: [facility] Work Phone: Cardiac catheterization [...] with fistula occlusion Kelvin Donohue MD, MPH [employer]. Section of Advanced Heart Failure and Transplantation Division of Cardiovascular Diseases [facility] [email or web address] INVASIVE CARDIOVASCULAR PROC Ricki 01-21-2024 INVASIVE CARDIOVASCULAR PROCEDURE Table formatting from the original result was not included. Hemodynamic [...] with fistula occlusion Kelvin Donohue MD, MPH [employer] Internal Medicine. Section of Advanced Heart Failure and Transplantation Division of Cardiovascular Diseases [facility] [email or web address] Table formatting from the original result was not included. Images from the original result were not included. George Styles Invasive Cardiology Cath Procedure Ordering Physician: KELVIN PACHECO Order #: [id number] Study Date: 01/20/2024 Patient Information Name MRN Description George Styles [id number] 53 y.o. male Location Name Address [facility] [address] [facility] [address] Physicians Panel Physicians Referring Physician Case Authorizing Physician LU Costello (Primary) Zuly Bruno, ROB Pacheco MD, MBAPOORVA Procedures RIGHT HEART CATHETERIZATION Indications Pre-transplant evaluation for chronic liver disease [Z01.818 (ICD-10-CM)] Conclusion Hemodynamic Summary: Baseline Hemodynamics Systemic BP 132/63/90 [...] with fistula occlusion Kelvin Donohue MD, MPH [employer]ener [employer] Internal Medicine. Section of Advanced Heart Failure and Transplantation Division of Cardiovascular Diseases [email or web address] Medical History Diagnosis Date Comment Source Acute renal failure CAD (coronary artery disease) Cirrhosis Dialysis patient T, Th, Sa- Started 06/01/2018 End stage renal disease 06/01/2018 Essential hypertension, benign Hepatic encephalopathy History of blood transfusion Liver cirrhosis Procedure The risks and alternatives of the procedure and sedation were explained. Informed consent was obtained. The patient was brought to the cathodic protection technician and placed on the table. The planned puncture sites were prepped and draped in the usual sterile fashion. Fluoro Dose Fluoro Dose: 0.2 Gy-cm^2 Complications Complications documented before study signed (01/21/2024 4:05 PM) No complications were associated with this study. Documented by LU Costello - 01/20/2024 11:09 AM Cardiac Shape Brick Molder Attending Physician Statement and Signature I have personally performed and/or personally supervised and was present for this entire procedure, including the review and interpretation of all images and physiologic tracings acquired during the course of this study. Signed at 1125 EST Phase: Baseline Data Systolic (mmHg) Diastolic (mmHg) Mean (mmHg) dP/dt (mmHg/sec) A Wave (mmHg) V Wave (mmHg) AO Pressures 132 63 90 RA Pressures 12 15 13 RV Pressures 47 20 PA Pressures 49 25 35 PCW Pressures 22 20 29 Phase: Phase 2 Data Systolic (mmHg) Diastolic (mmHg) Mean (mmHg) dP/dt (mmHg/sec) A Wave (mmHg) V Wave (mmHg) PA Pressures 43 21 32 PCW Pressures 20 18 20 Phase: Phase 3 Data Systolic (mmHg) Diastolic (mmHg) Mean (mmHg) dP/dt (mmHg/sec) A Wave (mmHg) V Wave (mmHg) AO Pressures 132 60 86 PA Pressures 41 20 29 PCW Pressures 20 16 17 Phase: Baseline Data HR (bpm) TDCO (L/min) TDCI (L/min/m2) John CO (L/min) John CI (L/min/m2) SVR (dsc-5) PVR-CAMARGO (Holden unit) Hemo Outputs 7.39 3.64 Hemo Resistances 844.73 1.76 Phase: Phase 3 Data HR (bpm) TDCO (L/min) TDCI (L/min/m2) John CO (L/min) John CI (L/min/m2) SVR (dsc-5) PVR-CAMARGO (Holden unit) Hemo Outputs 7.1 3.5 Hemo Resistances 1.27 Blood O (more content not included)... Normal [facility] MAGNESIUMon 01-21-2024 Interpretation and review of laboratory results Abnormal [facility] Magnesium [Mass/Vol] 1.5 mg/dL Low 1.6 - 2 .6 mg/dL [facility] Magnesium [Mass/Vol] 1.5 mg/dL Low 1.6-2.6 [facility] Comment on above: Performed By: #### C HM7, HFP, MGO #### [facility] (DEFAULT) [address] [place] [address] No Panel Informationon 01-21 [facility] TACROLIMUS LEVEL, TROUGH (TN E DRUG LEVEL)on 01-21-2024 Interpretation and review of laboratory results Normal [facility] Tacrolimus (Bld) [Mass/Vol] 7.2 ng/mL Bone Marrow Transplant: 4.0-12.0, Therapeutic: 5.0-15.0 [facility] Method performed is a chemiluminescent microparticle immunoasssay on the [employer] Clinical i2000. The range is based on experience at [facility] and users should be aware that target concentrations vary widely depending on concomitant therapy, time post-transplant, and desired degree of immunosuppression. [facility] Tacrolimus, Trough 7.2 ng/mL Normal Bone Susana ow Transplant: 4.0-12.0, Therapeutic: 5.0-15.0 [facility] Comment on above: Order Comment: Pleas e draw at specified interval PRIOR to dose. Do not hold dose to wait for level. Specimens batched twice per day, (M-F) and once per day weekendsMethod performed is a chemiluminescent microparticle immunoasssay on the [employer] Clinical i2000.The range is based on experience at [facility] and users should be aware that target concentrations vary widely depending on concomitant therapy, time post-transplant, and desired degree of immunosuppression. Performed By: #### C A, CHM7, HFP, IPB, MGO #### [facility] (DEFAULT) [address] [place] [address] CBC,PLATELETSon 01-20-2024 Erythrocyte distribution width (RBC) [Ratio] 13.8 % 10.9 - 14.3 % [facility] Hematocrit (Bld) [Volume fraction] 38.9 % Low 39.6 - 48.8 % [facility] Hemoglobin (Bld) [Mass/Vol] 12.5 g/dL Low 13.4 - 16.8 g/dL [facility] Interpretation and review of laboratory results Abnormal [facility] MCH (RBC) [Entitic mass] 28.0 pg 26.1 - 33.3 pg [facility] MCHC (RBC) [Mass/Vol] 32.1 g/dL 31.9 - 36.5 g/dL [facility] MCV (RBC) [Entitic vol] 87.2 fL 79.0 - 94.5 fL [facility] Platelet mean volume (Bld) [Entitic vol] 10.2 fL 8.7 - 12.3 fL [facility] Platelets (Bld) [#/Vol] 166 10*3/uL 146 - 337 K/uL [facility] RBC (Bld) [#/Vol] 4.46 10*6/uL [facility] WBC (Bld) [#/Vol] 3.79 10*3/uL 3.73 - 10. 10 K/uL [facility] Hematocrit (Bld) [Volume fraction] 38.9 % Low 39.6-48.8 [facility] Comment on above: Performed By: #### C Tray, CHM7, HFP, IPB, MGO #### [facility] (DEFAULT) [address] [place] [address] Hemoglobin (Bld) [Mass/Vol] 12.5 g/dL Low 13.4-16.8 [facility] Comment on above: Performed By: #### Chinedu Feliz, CHM7, HFP, IPB, MGO #### [facility] (DEFAULT) [address] [place] [address] MCV (RBC) [Entitic vol] 87.2 fL Normal 79.0-94.5 [facility] Comment on above: Performed By: #### C Tray, CHM7, HFP, IPB, MGO #### [facility] (DEFAULT) [address] [place] [address] 08522 Mean Cell Hgb 28.0 pg Normal 26.1-33.3 [facility] Comment on above: Performed By: #### C A, CHM7, HFP, IPB, MGO #### [facility] (DEFAULT) [address] [place] [address] 52289 Mean Cell Hgb Conc 32.1 g/dL Normal 31.9-36.5 [facility] Comment on above: Performed By: #### C A, CHM7, HFP, IPB, MGO #### [facility] (DEFAULT) [address] [place] [address] 85582 Platelet mean volume (Bld) [Entitic vol] 10.2 fL Normal 8.7-12.3 [facility] Comment on above: Performed By: #### C A, CHM7, HFP, IPB, MGO #### [facility] (DEFAULT) [address] [place] [address] 84546 Platelets (Bld) [#/Vol] 166 10*3/uL Normal 146-337 [facility] Comment on above: Performed By: #### C A, CHM7, HFP, IPB, MGO #### [facility] (DEFAULT) [address] [place] [address] 63641 RBC (Bld) [#/Vol] 4.46 10*6/uL Normal 4.38-5.83 [facility] Comment on above: Performed By: #### C A, CHM7, HFP, IPB, MGO #### [facility] (DEFAULT) [address] [place] [address] 01155 RBC Distribution 13.8 % Normal 10.9-14.3 [facility] Comment on above: Performed By: #### C A, CHM7, HFP, IPB, MGO #### [facility] (DEFAULT) [address] [place] [address] WBC (Bld) [#/Vol] 3.79 10*3/uL Normal 3.73-10.10 [facility] Comment on above: Performed By: #### C A, CHM7, HFP, IPB, MGO #### [facility] (DEFAULT) [address] [place] [address]26 CHEM 7 (LYTES,BUN,CREA,GLUC) on 01-20-2024 Anion gap [Moles/Vol] 12 mmol/L 7 - 17 mmol/L [facility] Chloride [Moles/Vol] 105 mmol/L 98 - 10 8 mmol/L [facility] CO2 [Moles/Vol] 28 mmol/L 21 - 31 mmol/L [facility] Creatinine [Mass/Vol] 1.12 mg/dL 0.70 - 1.30 mg/dL [facility] eGFR, CKD-EPI, Male 80 - PINF [facility] Comment on above: Reported eGFR is bas ed on the CKD-EPI 2020 equation using creatinine, age, and sex. Glucose [Mass/Vol] 88 mg/dL 70 - 99 mg/dL [facility] Osmolality Calc [Osmolality] 294 [facility] Potassium [Moles/Vol] 3.8 mmol/L 3.5 - 5.0 mmol/L [facility] Sodium [Moles/Vol] 141 mmol/L 135 - 145 mmol/L [facility] Urea nitrogen [Mass/Vol] 15 mg/dL 7 - 25 mg/dL [facility] Urea nitrogen/Creatinine [Mass ratio] 13 mg/mg [facility] Anion gap [Moles/Vol] 12 mmol/L Normal 7-17 [facility] Comment on above: Performed By: #### C HM7, HFP, MGO #### [facility] (DEFAULT) [address] [address] Chloride [Moles/Vol] 105 mmol/L Normal 98-108 [facility] Comment on above: Performed By: #### C HM7, HFP, MGO #### [facility] (DEFAULT) [address] [place] [address]41 CO2 [Moles/Vol] 28 mmol/L Normal 21-31 [facility] Comment on above: Performed By: #### Chinedu HM7, HFP, MGO #### [facility] (DEFAULT) [address] [place] [address] Creatinine [Mass/Vol] 1.12 mg/dL Normal 0.70-1.30 [facility] Comment on above: Performed By: #### Chinedu HM7, HFP, MGO #### [facility] (DEFAULT) [address] [address] GFR/1.73 sq M.predicted among non-blacks MDRD (S/P/Bld) [Vol rate/Area] 79 mL/min/{1.73_m2} Normal >=60 [facility] Comment on above: Result Comment: Repo rted eGFR is based on the CKD-EPI 2020 equation using creatinine, age, and sex. Performed By: #### C HM7, HFP, MGO #### [facility] (DEFAULT) [address] [place] [address]80 Glucose [Mass/Vol] 88 mg/dL Normal 70-99 [facility] Comment on above: Performed By: #### C HM7, HFP, MGO #### [facility] (DEFAULT) [address] [place] [address]646 Osmolality [Osmolality] 294 mosm/kg Normal 278-305 [facility] Comment on above: Performed By: #### C HM7, HFP, MGO #### [facility] (DEFAULT) [address] [place] [address] 20340 Potassium [Moles/Vol] 3.8 mmol/L Normal 3.5-5.0 [facility] Comment on above: Performed By: #### C HM7, HFP, MGO #### [facility] (DEFAULT) [address] [place] [address] 17169 Sodium [Moles/Vol] 141 mmol/L Normal 135-145 [facility] Comment on above: Performed By: #### C HM7, HFP, MGO #### [facility] (DEFAULT) [address] [place] [address]246 Urea nitrogen [Mass/Vol] 15 mg/dL Normal 7-25 [facility] Comment on above: Performed By: #### C HM7, HFP, MGO #### [facility] (DEFAULT) [address] [place] [address] 67755 Urea nitrogen/Creatinine [Mass ratio] 13 mg/mg Normal [facility] Comment on above: Performed By: #### C HM7, HFP, MGO #### [facility] (DEFAULT) [address] [place] [address]69 Cardiac catheterization stud yon 01-20-2024 [facility] Radiology Study observation (narrative) [facility] Radiology Study observation (narrative) [facility] EBV BY PCR, QUANTITATIVE,BLO ODOrdered By: Charlotte Jensen on 01-20-2024 EBV DNA ESTELITA+probe (Unsp spec) [#/Vol] NINF [facility] Interpretation and review of laboratory results Normal [facility] This test was performed using a real [...] regarded as investigational or for research. [facility] HEPATIC FUNCTION PANELon Albumin [Mass/Vol] 3.7 g/dL 3.5 - 5.0 g/dL [facility] ALP [Catalytic activity/Vol] 73 U/L 32 - 126 U/L [facility] ALT [Catalytic activity/Vol] 12 U/L 10 - 52 U/L [facility] AST [Catalytic activity/Vol] 19 U/L 10 - 39 U/L [facility] Bilirubin [Mass/Vol] 2.1 mg/dL [facility]/dL [facility] Bilirubin.direct [Mass/Vol] 0.5 mg/dL High NINF - 0.3 mg/dL [facility] Interpretation and review of laboratory results Abnormal [facility] Protein [Mass/Vol] 6.1 g/dL Low 6.4 - 8.3 g/dL [facility] Albumin [Mass/Vol] 3.7 g/dL Normal 3.5-5.0 [facility] Comment on above: Performed By: #### C HM7, HFP, MGO #### [facility] (DEFAULT) [address] [place] [address] 14228 ALP [Catalytic activity/Vol] 73 U/L Normal 32-126 [facility] Comment on above: Performed By: #### C HM7, HFP, MGO #### [facility] (DEFAULT) [address] [place] [address] 78174 ALT [Catalytic activity/Vol] 12 U/L Normal 10-52 [facility] Comment on above: Performed By: #### C HM7, HFP, MGO #### [facility] (DEFAULT) [address] [place] [address] 80579 AST [Catalytic activity/Vol] 19 U/L Normal 10-39 [facility] Comment on above: Performed By: #### Chinedu HM7, HFP, MGO #### [facility] (DEFAULT) [address] [place] [address] 05583 Bilirubin [Mass/Vol] 2.1 mg/dL High <1.5 [facility] Comment on above: Performed By: #### C HM7, HFP, MGO #### [facility] (DEFAULT) [address] [place] [address]303 Bilirubin.indirect [Mass/Vol] 0.5 mg/dL High <0.3 [facility] Comment on above: Performed By: #### Chinedu HM7, HFP, MGO #### [facility] (DEFAULT) [address] [place] [address] 30451 Protein [Mass/Vol] 6.1 g/dL Low 6.4-8.3 [facility] Comment on above: Performed By: #### C HM7, HFP, MGO #### [facility] (DEFAULT) [address] [place] [address]242 ITRACONAZOLE LEVELon 01-20- 024 Hydroxyitraconazole 7.6 mcg/mL Normal [facility] Comment on above: Order Comment: Pleas e draw level at specified interval PRIOR to dose. Result Comment: REFERENCE VALUE No therapeutic range established; activity and serum concentration are similar to parent drug. ADDITIONAL INFORMATION This test was developed and its performance characteristics determined by [facility] in a manner consistent with CLIA requirements. This test has not been cleared or approved by the U.S. Food and Drug Administration. Test Performed by: [facility] [address] [place] [address] Vertical Contour Band Saw Operator: Rsoendo Bose M.D. Ph.D.; CLIA# [id number] Performed By: #### Chinedu Feliz, CHM7, HFP, IPB, MGO #### [facility] (DEFAULT) [address] [place] [address] Itraconazole 6.0 mcg/mL Normal [facility] Comment on above: Order Comment: Pleas e draw level at specified interval PRIOR to dose. Result Comment: REFERENCE VALUE >0.5 (localized infection), >1.0 (systemic infection) Performed By: #### C Tray, CHM7, HFP, IPB, MGO #### [facility] (DEFAULT) [address] [place] [address] MAGNESIUMon 01-20-2024 Interpretation and review of laboratory results Normal [facility] Magnesium [Mass/Vol] 1.6 mg/dL 1.6 - 2 .6 mg/dL [facility] Magnesium [Mass/Vol] 1.6 mg/dL Normal 1.6-2.6 [facility] Comment on above: Performed By: #### C HM7, HFP, MGO #### [facility] (DEFAULT) [address] [place] [address] No Panel Informationon 01-20 [facility] POCT CO-OXIMETRYon Hemoglobin (Bld) [Mass/Vol] 12.8 g/dL Low 13.4 - 16.8 g/dL [facility] Interpretation and review of laboratory results Abnormal [facility] Oxyhemoglobin 69 % Low 94 - 98 % [facility] Ordering physician notified. Test performed at address of the patient encounter. [facility] Hemoglobin (Bld) [Mass/Vol] 13.3 g/dL Low 13.4 - 16.8 g/dL [facility] Interpretation and review of laboratory results Abnormal [facility] Oxyhemoglobin 69 % Low 94 - 98 % [facility] Ordering physician notified. Test performed at address of the patient encounter. [facility] PT,INR,PTTon 01-20-2024 aPTT Coag (PPP) [Time] 30.6 s [facility] INR Coag (Bld) [Relative time] 1.2 {INR} High 0.9 - 1.1 [facility] Interpretation and review of laboratory results Abnormal [facility] PT Coag (PPP) [Time] 15.5 s High [facility] aPTT Coag (Bld) [Time] 30.6 s Normal 24.0-34.3 [facility] Comment on above: Performed By: #### C Tray, CHM7, HFP, IPB, MGO #### [facility] (DEFAULT) [address] [place] [address] INR Coag (PPP) [Relative time] 1.2 {INR} High 0.9-1.1 [facility] Comment on above: Performed By: #### C Tray, CHM7, HFP, IPB, MGO #### [facility] (DEFAULT) [address] [place] [address] PT Coag (PPP) [Time] 15.5 s High 11.9-14.2 [facility] Comment on above: Performed By: #### C Tray, CHM7, HFP, IPB, MGO #### [facility] (DEFAULT) [address] [place] [address] TACROLIMUS LEVEL, TROUGH (TN E DRUG LEVEL)Ordered By: Yanira Marcum on 01-20-2024 Interpretation and review of laboratory results Normal [facility] Tacrolimus (Bld) [Mass/Vol] 7.7 ng/mL Bone Marrow Transplant: 4.0-12.0, Therapeutic: 5.0-15.0 [facility] Method performed is a chemiluminescent microparticle immunoasssay on the [employer] Clinical i2000. The range is based on experience at [facility] and users should be aware that target concentrations vary widely depending on concomitant therapy, time post-transplant, and desired degree of immunosuppression. [facility] TACROLIMUS LEVEL, TROUGH (TN E DRUG LEVEL)on 01-20-2024 Tacrolimus, Trough 7.7 ng/mL Normal Bone Susana ow Transplant: 4.0-12.0, Therapeutic: 5.0-15.0 [facility] Comment on above: Order Comment: Pleas e draw at specified interval PRIOR to dose. Do not hold dose to wait for level. Specimens batched twice per day, (M-F) and once per day weekendsMethod performed is a chemiluminescent microparticle immunoasssay on the [employer] Clinical i2000.The range is based on experience at [facility] and users should be aware that target concentrations vary widely depending on concomitant therapy, time post-transplant, and desired degree of immunosuppression. Performed By: #### C Tray, CHM7, HFP, IPB, MGO #### [facility] (DEFAULT) [address] [place] [address] CBC,PLATELETSon 01-19-2024 Erythrocyte distribution width (RBC) [Ratio] 13.9 % 10.9 - 14.3 % [facility] Hematocrit (Bld) [Volume fraction] 37.5 % Low 39.6 - 48.8 % [facility] Hemoglobin (Bld) [Mass/Vol] 12.1 g/dL Low 13.4 - 16.8 g/dL [facility] Interpretation and review of laboratory results Abnormal [facility] MCH (RBC) [Entitic mass] 28.3 pg 26.1 - 33.3 pg [facility] MCHC (RBC) [Mass/Vol] 32.3 g/dL 31.9 - 36.5 g/dL [facility] MCV (RBC) [Entitic vol] 87.8 fL 79.0 - 94.5 fL [facility] Platelet mean volume (Bld) [Entitic vol] 10.4 fL 8.7 - 12.3 fL [facility] Platelets (Bld) [#/Vol] 163 10*3/uL 146 - 337 K/uL [facility] RBC (Bld) [#/Vol] 4.27 10*6/uL Low [facility] WBC (Bld) [#/Vol] 3.69 10*3/uL Low 3.73 - 10. 10 K/uL [facility] Hematocrit (Bld) [Volume fraction] 37.5 % Low 39.6-48.8 [facility] Comment on above: Performed By: #### C Tray, CHM7, HFP, IPB, MGO #### [facility] (DEFAULT) [address] [place] [address]250 Hemoglobin (Bld) [Mass/Vol] 12.1 g/dL Low 13.4-16.8 [facility] Comment on above: Performed By: #### C Tray, CHM7, HFP, IPB, MGO #### [facility] (DEFAULT) [address] [place] [address] MCV (RBC) [Entitic vol] 87.8 fL Normal 79.0-94.5 [facility] Comment on above: Performed By: #### C A, CHM7, HFP, IPB, MGO #### [facility] (DEFAULT) [address] [place] [address] 04605 Mean Cell Hgb 28.3 pg Normal 26.1-33.3 [facility] Comment on above: Performed By: #### Chinedu Feliz, CHM7, HFP, IPB, MGO #### [facility] (DEFAULT) [address] [place] [address] 40053 Mean Cell Hgb Conc 32.3 g/dL Normal 31.9-36.5 [facility] Comment on above: Performed By: #### Chinedu Feliz, CHM7, HFP, IPB, MGO #### [facility] (DEFAULT) [address] [place] [address] 66948 Platelet mean volume (Bld) [Entitic vol] 10.4 fL Normal 8.7-12.3 [facility] Comment on above: Performed By: #### Chinedu Feliz, CHM7, HFP, IPB, MGO #### [facility] (DEFAULT) [address] [place] [address] 95817 Platelets (Bld) [#/Vol] 163 10*3/uL Normal 146-337 [facility] Comment on above: Performed By: #### Chinedu Feliz, CHM7, HFP, IPB, MGO #### [facility] (DEFAULT) [address] [place] [address] 37474 RBC (Bld) [#/Vol] 4.27 10*6/uL Low 4.38-5.83 [facility] Comment on above: Performed By: #### Chinedu Feliz, CHM7, HFP, IPB, MGO #### [facility] (DEFAULT) [address] [place] [address] 82695 RBC Distribution 13.9 % Normal 10.9-14.3 [facility] Comment on above: Performed By: #### Chinedu Feliz, CHM7, HFP, IPB, MGO #### [facility] (DEFAULT) [address] [place] [address] 90656 WBC (Bld) [#/Vol] 3.69 10*3/uL Low 3.73-10.10 [facility] Comment on above: Performed By: #### C Tray, CHM7, HFP, IPB, MGO #### [facility] (DEFAULT) [address] [place] [address] CHEM 7 (LYTES,BUN,CREA,GLUC) on 01-19-2024 Anion gap [Moles/Vol] 14 mmol/L 7 - 17 mmol/L [facility] Chloride [Moles/Vol] 106 mmol/L 98 - 10 8 mmol/L [facility] CO2 [Moles/Vol] 24 mmol/L 21 - 31 mmol/L [facility] Creatinine [Mass/Vol] 1.13 mg/dL 0.70 - 1.30 mg/dL [facility] eGFR, CKD-EPI, Male 79 - PINF [facility] Comment on above: Reported eGFR is bas ed on the CKD-EPI 2020 equation using creatinine, age, and sex. Glucose [Mass/Vol] 86 mg/dL 70 - 99 mg/dL [facility] Osmolality Calc [Osmolality] 293 [facility] Potassium [Moles/Vol] 3.8 mmol/L 3.5 - 5.0 mmol/L [facility] Sodium [Moles/Vol] 140 mmol/L 135 - 145 mmol/L [facility] Urea nitrogen [Mass/Vol] 16 mg/dL 7 - 25 mg/dL [facility] Urea nitrogen/Creatinine [Mass ratio] 14 mg/mg [facility] Anion gap [Moles/Vol] 14 mmol/L Normal 7-17 [facility] Comment on above: Performed By: #### C A, CHM7, HFP, IPB, MGO #### [facility] (DEFAULT) [address] [place] [address] Chloride [Moles/Vol] 106 mmol/L Normal 98-108 [facility] Comment on above: Performed By: #### C A, CHM7, HFP, IPB, MGO #### [facility] (DEFAULT) [address] [place] [address] CO2 [Moles/Vol] 24 mmol/L Normal 21-31 [facility] Comment on above: Performed By: #### C Tray, CHM7, HFP, IPB, MGO #### [facility] (DEFAULT) [address] [place] [address] 15284 Creatinine [Mass/Vol] 1.13 mg/dL Normal 0.70-1.30 [facility] Comment on above: Performed By: #### Chinedu Feliz, CHM7, HFP, IPB, MGO #### [facility] (DEFAULT) [address] [place] [address]2577 GFR/1.73 sq M.predicted among non-blacks MDRD (S/P/Bld) [Vol rate/Area] 78 mL/min/{1.73_m2} Normal >=60 [facility] Comment on above: Result Comment: Repo rted eGFR is based on the CKD-EPI 2020 equation using creatinine, age, and sex. Performed By: #### Chinedu Feliz, CHM7, HFP, IPB, MGO #### [facility] (DEFAULT) [address] [place] [address] 34654 Glucose [Mass/Vol] 86 mg/dL Normal 70-99 [facility] Comment on above: Performed By: #### Chinedu Feliz, CHM7, HFP, IPB, MGO #### [facility] (DEFAULT) [address] [place] [address] 92906 Osmolality [Osmolality] 293 mosm/kg Normal 278-305 [facility] Comment on above: Performed By: #### C Tray, CHM7, HFP, IPB, MGO #### [facility] (DEFAULT) [address] [place] [address] 68294 Potassium [Moles/Vol] 3.8 mmol/L Normal 3.5-5.0 [facility] Comment on above: Performed By: #### Chinedu A, CHM7, HFP, IPB, MGO #### [facility] (DEFAULT) [address] [place] [address] 48689 Sodium [Moles/Vol] 140 mmol/L Normal 135-145 [facility] Comment on above: Performed By: #### C Tray, CHM7, HFP, IPB, MGO #### [facility] (DEFAULT) [address] [place] [address] 33187 Urea nitrogen [Mass/Vol] 16 mg/dL Normal 7-25 [facility] Comment on above: Performed By: #### C A, CHM7, HFP, IPB, MGO #### [facility] (DEFAULT) [address] [place] [address] 28746 Urea nitrogen/Creatinine [Mass ratio] 14 mg/mg Normal [facility] Comment on above: Performed By: #### C Tray, CHM7, HFP, IPB, MGO #### [facility] (DEFAULT) [address] [place] [address] 88631 EBV BY PCR, QUANTITATIVE,BLO ODon 01-19-2024 Ebv By Pcr, Quant, Blood <1000 Normal <1000 [facility] Comment on above: Order [...] or for research. Performed By: #### C A, CHM7, HFP, IPB, MGO #### [facility] (DEFAULT) [address] [place] [address] 76984 HISTOPLASMA AND BLASTOMYCES ANTIGEN, ENZYME IMMUNOASSAY, SERMon 01-19-2024 Histoplasma/Blastomyce s Ag Result Not detected Not Detected [facility] Comment on above: No antigen from Hist oplasma or Blastomyces detected. False negative results may occur depending on extent of disease, and/or site of infection. Repeat testing on a new specimen if clinically indicated. Histoplasma/Blastomyce s Ag Value Not detected ng/mL [facility] Comment on above: ADDITIONAL INFORMATION This test was developed and its performance characteristics determined by [facility] in a manner consistent with CLIA requirements. This test has not been cleared or approved by the U.S. Food and Drug Administration. Test Performed by: [facility] [address] [place] [address] Vertical Contour Band Saw Operator: Rosendo Bose M.D. Ph.D.; CLIA# [id number] [facility] MAGNESIUMon 01-19-2024 Interpretation and review of laboratory results Normal [facility] Magnesium [Mass/Vol] 1.8 mg/dL 1.6 - 2 .6 mg/dL [facility] Magnesium [Mass/Vol] 1.8 mg/dL Normal 1.6-2.6 [facility] Comment on above: Performed By: #### C A, CHM7, HFP, IPB, MGO #### [facility] (DEFAULT) [address] [place] [address] No Panel Informationon 01-19 [facility] TACROLIMUS LEVEL, TROUGH (TN E DRUG LEVEL)Ordered By: Raymundo Mehta on 01-19-2024 Interpretation and review of laboratory results Normal [facility] Tacrolimus (Bld) [Mass/Vol] 6.8 ng/mL Bone Marrow Transplant: 4.0-12.0, Therapeutic: 5.0-15.0 [facility] Method performed is a chemiluminescent microparticle immunoasssay on the [employer] i2000. The range is based on experience at [facility] and users should be aware that target concentrations vary widely depending on concomitant therapy, time post-transplant, and desired degree of immunosuppression. [facility] TACROLIMUS LEVEL, TROUGH (TN E DRUG LEVEL)on 01-19-2024 Tacrolimus, Trough 6.8 ng/mL Normal Bone Susana ow Transplant: 4.0-12.0, Therapeutic: 5.0-15.0 [facility] Comment on above: Order Comment: Pleas e draw at specified interval PRIOR to dose. Do not hold dose to wait for level. Specimens batched twice per day, (M-F) and once per day weekendsMethod performed is a chemiluminescent microparticle immunoasssay on the [employer] i2000.The range is based on experience at [facility] and users should be aware that target concentrations vary widely depending on concomitant therapy, time post-transplant, and desired degree of immunosuppression. Performed By: #### C HM7, HFP, MGO #### [facility] (DEFAULT) [address] [place] [address] US AV fistulaOrdered By: Diana Reyes on 01-19-2024 [facility] Work Phone: US AV fistulaon 01-19-2024 Radiology Study observation (narrative) [facility] AFP TUMOR MARKEROrdered By: Francisca Alaniz on 01-18-2024 AFP.tumor marker [Mass/Vol] ng/mL NINF - 8.1 ng/mL [facility] Comment on above: This test was perfor med on the [employer] Immunoassay platform by [employer] which is a two-site sandwich chemiluminescent immunoassay. It is important to note that assays using different manufacturers and/or methods may not be comparable. Interpretation and review of laboratory results Normal [facility] CBC,PLATELETSon 01-18-2024 Erythrocyte distribution width (RBC) [Ratio] 13.9 % 10.9 - 14.3 % [facility] Hematocrit (Bld) [Volume fraction] 38.4 % Low 39.6 - 48.8 % [facility] Hemoglobin (Bld) [Mass/Vol] 12.1 g/dL Low 13.4 - 16.8 g/dL [facility] Interpretation and review of laboratory results Abnormal [facility] MCH (RBC) [Entitic mass] 27.8 pg 26.1 - 33.3 pg [facility] MCHC (RBC) [Mass/Vol] 31.5 g/dL Low 31.9 - 36.5 g/dL [facility] MCV (RBC) [Entitic vol] 88.3 fL 79.0 - 94.5 fL [facility] Platelet mean volume (Bld) [Entitic vol] 10.4 fL 8.7 - 12.3 fL [facility] Platelets (Bld) [#/Vol] 183 10*3/uL 146 - 337 K/uL [facility] RBC (Bld) [#/Vol] 4.35 10*6/uL Low [facility] WBC (Bld) [#/Vol] 3.66 10*3/uL Low 3.73 - 10. 10 K/uL [facility] Hematocrit (Bld) [Volume fraction] 38.4 % Low 39.6-48.8 [facility] Comment on above: Performed By: #### Chinedu Feliz, CHM7, HFP, IPB, MGO #### [facility] (DEFAULT) [address] [place] [address] 91162 Hemoglobin (Bld) [Mass/Vol] 12.1 g/dL Low 13.4-16.8 [facility] Comment on above: Performed By: #### Chinedu Feliz, CHM7, HFP, IPB, MGO #### [facility] (DEFAULT) [address] [place] [address] 73068 MCV (RBC) [Entitic vol] 88.3 fL Normal 79.0-94.5 [facility] Comment on above: Performed By: #### Chinedu Feliz, CHM7, HFP, IPB, MGO #### [facility] (DEFAULT) [address] [place] [address] 10248 Mean Cell Hgb 27.8 pg Normal 26.1-33.3 [facility] Comment on above: Performed By: #### Chinedu Feliz, CHM7, HFP, IPB, MGO #### [facility] (DEFAULT) [address] [place] [address] 62781 Mean Cell Hgb Conc 31.5 g/dL Low 31.9-36.5 [facility] Comment on above: Performed By: #### C A, CHM7, HFP, IPB, MGO #### [facility] (DEFAULT) [address] [place] [address] 96468 Platelet mean volume (Bld) [Entitic vol] 10.4 fL Normal 8.7-12.3 [facility] Comment on above: Performed By: #### C A, CHM7, HFP, IPB, MGO #### [facility] (DEFAULT) [address] [place] [address] 51412 Platelets (Bld) [#/Vol] 183 10*3/uL Normal 146-337 [facility] Comment on above: Performed By: #### C A, CHM7, HFP, IPB, MGO #### [facility] (DEFAULT) [address] [place] [address] 49605 RBC (Bld) [#/Vol] 4.35 10*6/uL Low 4.38-5.83 [facility] Comment on above: Performed By: #### C A, CHM7, HFP, IPB, MGO #### [facility] (DEFAULT) [address] [place] [address] 60417 RBC Distribution 13.9 % Normal 10.9-14.3 [facility] Comment on above: Performed By: #### C A, CHM7, HFP, IPB, MGO #### [facility] (DEFAULT) [address] [place] [address] 68782 WBC (Bld) [#/Vol] 3.66 10*3/uL Low 3.73-10.10 [facility] Comment on above: Performed By: #### C A, CHM7, HFP, IPB, MGO #### [facility] (DEFAULT) [address] [place] [address] 77286 CHEM 7 (LYTES,BUN,CREA,GLUC) on 01-18-2024 Anion gap [Moles/Vol] 11 mmol/L 7 - 17 mmol/L [facility] Chloride [Moles/Vol] 108 mmol/L 98 - 10 8 mmol/L [facility] CO2 [Moles/Vol] 26 mmol/L 21 - 31 mmol/L [facility] Creatinine [Mass/Vol] 1.00 mg/dL 0.70 - 1.30 mg/dL [facility] eGFR, CKD-EPI, Male - PINF [facility] Comment on above: Reported eGFR is bas ed on the CKD-EPI 2020 equation using creatinine, age, and sex. Glucose [Mass/Vol] 89 mg/dL 70 - 99 mg/dL [facility] Osmolality Calc [Osmolality] 295 [facility] Potassium [Moles/Vol] 3.9 mmol/L 3.5 - 5.0 mmol/L [facility] Sodium [Moles/Vol] 141 mmol/L 135 - 145 mmol/L [facility] Urea nitrogen [Mass/Vol] 16 mg/dL 7 - 25 mg/dL [facility] Urea nitrogen/Creatinine [Mass ratio] 16 mg/mg [facility] Anion gap [Moles/Vol] 11 mmol/L Normal 7-17 [facility] Comment on above: Performed By: #### C JASMYNE, TAVO, MGO #### [facility] (DEFAULT) [address] [address] Chloride [Moles/Vol] 108 mmol/L Normal 98-108 [facility] Comment on above: Performed By: #### Chinedu MEDLEY, TAVO, MGO #### [facility] (DEFAULT) [address] [place] [address] 82660 CO2 [Moles/Vol] 26 mmol/L Normal 21-31 [facility] Comment on above: Performed By: #### Chinedu MEDLEY, HFP, MGO #### [facility] (DEFAULT) [address] [address] Creatinine [Mass/Vol] 1.00 mg/dL Normal 0.70-1.30 [facility] Comment on above: Performed By: #### Chinedu MEDLEY, HFP, MGO #### [facility] (DEFAULT) [address] [place] [address] 07101 eGFR, CKD-EPI, Male > Normal >=60 [facility] Comment on above: Result Comment: Repo rted eGFR is based on the CKD-EPI 1 equation using creatinine, age, and sex. Performed By: #### C HM7, HFP, MGO #### [facility] (DEFAULT) [address] [place] [address] 26455 Glucose [Mass/Vol] 89 mg/dL Normal 70-99 [facility] Comment on above: Performed By: #### C HM7, HFP, MGO #### [facility] (DEFAULT) [address] [place] [address] 95620 Osmolality [Osmolality] 295 mosm/kg Normal 278-305 [facility] Comment on above: Performed By: #### C HM7, HFP, MGO #### [facility] (DEFAULT) [address] [place] [address] 06528 Potassium [Moles/Vol] 3.9 mmol/L Normal 3.5-5.0 [facility] Comment on above: Performed By: #### C HM7, HFP, MGO #### [facility] (DEFAULT) [address] [place] [address] 91230 Sodium [Moles/Vol] 141 mmol/L Normal 135-145 [facility] Comment on above: Performed By: #### C HM7, HFP, MGO #### [facility] (DEFAULT) [address] [place] [address] 13121 Urea nitrogen [Mass/Vol] 16 mg/dL Normal 7-25 [facility] Comment on above: Performed By: #### C HM7, HFP, MGO #### [facility] (DEFAULT) [address] [place] [address] 03005 Urea nitrogen/Creatinine [Mass ratio] 16 mg/mg Normal [facility] Comment on above: Performed By: #### C HM7, HFP, MGO #### [facility] (DEFAULT) [address] [place] [address] Cardiac echo study Procedure Ordered By: Gain Carlos on 01-18-2024 Ao ASC index 1.63 cm/m2 [facility] Work Phone: [phone] Ao peak meliton 1.46 m/s [facility] Phone: [phone] Ao SOV index 1.56 cm/m2 [facility] Work Phone: [phone] Ao STJ index 1.25 cm/m2 [facility] Work Phone: [phone] Ao VTI 35.74 cm [facility] Work Phone: [phone] Ascending [facility] 3.39 [facility]: [phone] AV LVOT peak gradient 4 mmHg [facility] Work Phone: [phone] [facility] gradient 5 [facility] Phone: [phone] AV peak gradient 9 mmHG [facility] Work Phone: [phone] AV valve area 3.09 cm2 [facility] Work Phone: [phone] AV Velocity Ratio 0.73 [facility] Work Phone: [phone] VEGA (continuity Vmax) 3.01 cm2 [facility] Work Phone: [phone] VEGA (continuity VTI) 3.09 cm2 [facility] Work Phone: [phone] VEGA index (continuity Vmax) 1.45 m/s [facility] Work Phone: [phone] VEGA index (continuity VTI) 1.49 cm2/m2 [facility] Work Phone: [phone] Avg e' pk meliton 0.07 m/s [facility] Work Phone: [phone] Avg E/e' ratio 19.45 [facility] Work Phone: [phone] Body surface area Derived from formula 2.08 m2 [facility] Work Phone: [phone] BP EF 62 % [facility] Work Phone: [phone] DI (Vmax) 0.73 [facility] Work Phone: [phone] DI (VTI) 0.74 m/2 [facility] Work Phone: [phone] E wave decelartion time 180.38 msec [facility] Work Phone: [phone] e' lateral pk meliton 0.0789 m[facility]s [facility]: [phone] e' lateral pk meliton 0.08 m/s [facility] Work Phone: [phone] e' septal pk meliton 0.0653 m/s [facility] Work Phone: [phone] e' septal pk meliton 0.07 m/s [facility] Work Phone: [phone] E/A ratio 2.67 [facility] Work Phone: [phone] E/e' lateral ratio 17.62 [facility] Work Phone: [phone] E/e' septal ratio 21.29 [facility]: [phone] EF SP 2CH 66 [facility] Work Phone: [phone] EF SP 4CH 58 [facility] Work Phone: [phone] FS 28 % 28 - 44 % [facility] Work Phone: [phone] IVC ostium 2.30 cm [facility] Work Phone: [phone] IVS 1.11 cm [facility] Work Phone: [phone] LA AREA 2CH 24.36 cm2 [facility] Work Phone: [phone] LA area 4CH 20.36 cm2 [facility] Work Phone: [phone] LA ESV BP (MOD) 64 mL [facility] Work Phone: [phone] LA ESV BP (MOD) index 31 mL/m2 [facility] Work Phone: [phone] LA ESV SP 2CH (MOD) [address] [facility] Work Phone: [phone] LA ESV SP 4CH (MOD) [address] [facility] Work Phone: [phone] LV EDV BP 180 mL [facility] Work Phone: [phone] LV EDV SP 2CH 190 mL [facility] Work Phone: [phone] LV EDV SP 4CH 166 mL [facility] Work Phone: [phone] LV ESV BP 69 mL [facility] Work Phone: [phone] LV ESV SP 2CH 65 mL [facility] Work Phone: [phone] LV ESV SP 4CH 70 mL [facility] Work Phone: [phone] LV mass 254.73 g [facility] Work Phone: [phone] LV Mass Index 122.5 g/m2 [facility] Work Phone: [phone] LV RWT 0.42 [facility] Work Phone: [phone] LV stroke volume BP (ml) 111 mL [facility] Work Phone: [phone] LV stroke volume index BP 53.37 mL/m2 [facility] Work Phone: [phone] LVIDD 5.53 cm [facility] Work Phone: [phone] LVIDS 3.97 cm [facility] Work Phone: [phone] LVOT area 4.15 cm2 [facility] Work Phone: [phone] LVOT diameter 2.30 cm [facility] Work Phone: [phone] LVOT peak meliton 1.06 m/s [facility] Work Phone: [phone] LVOT peak VTI 26.61 cm [facility] Work Phone: [phone] LVOT stroke volume 111 cm3 [facility] Work Phone: [phone] LVOT stroke volume index 53.13 ml/m2 [facility] Work Phone: [phone] Mr max meliton 4.21 m/s [facility] Work Phone: [phone] MR VTI 134.50 cm [facility] Work Phone: [phone] MV mean gradient 3 mmHg [facility] Work Phone: [phone] MV peak gradient 11 mmHg [facility] Work Phone: [phone] MV pk A meliton 0.52 m/s [facility] Work Phone: [phone] MV pk E meliton 1.39 m/s [facility] Work Phone: [phone] MV stenosis pressure 1/2 time 58.56 ms [facility] Work Phone: [phone] MV valve area by continuity eq 2.93 cm2 [facility] Work Phone: [phone] MV valve area p 1/2 method 3.76 cm2 [facility] Work Phone: [phone] MV VTI 37.70 cm [facility] Work Phone: [phone] MVA (continuity VTI) 2.92 cm [facility] Work Phone: [phone] [facility] AV VTI RATIO PRE STRESS 0.74 [facility] Work Phone: OSU ECHO LV BIPLANE SYSTOLIC VOLUME INDEX 33.17 mL/m2 [facility] Work Phone: OSU ECHO LV BP DIASTOLIC VOLUME INDEX 86.54 mL/m2 [facility] Work Phone: OSU ECHO MR PEAK GRADIENT 70.94 mmHg [facility] Work Phone: PW 1.16 cm [facility] Work Phone: RA area 4CH (MOD) 14.50 cm2 [facility] Work Phone: RA vol index 4CH (MOD) 18.27 mL/m2 [facility] Work Phone: Right atrium volume 4 chamber method of disks 38 mL [facility] Work Phone: RV Area diastolic 33.20 cm2 [facility] Work Phone: RV Area systolic 21.30 cm2 [facility] Work Phone: RV basal diam 4.52 cm [facility] Work Phone: RV Fractional area change 35.8 % [facility] Work Phone: RV long diam 8.96 cm [facility] Work Phone: RV mid diam 3.70 cm [facility] Work Phone: RV S' 22.01 cm/s [facility] Work Phone: RVOT peak gradient 4 mmHg [facility] Work Phone: RVOT peak meliton 0.96 m/s [facility] Work Phone: RVOT peak VTI 20.86 cm [facility] Work Phone: Sinus 3.24 cm [facility] Work Phone: [phone] 2.61 cm [facility] Work Phone: [phone] Stroke Volume 111 cm/mL [facility] Work Phone: [phone] Stroke volume index [address] [facility] Work Phone: [phone] TAPSE 2.19 cm [facility] Work Phone: [phone] Work Phone: [phone] Cardiac echo study Procedure on 01-18-2024 Left Ventricle: Chamber size is normal. Increased [...] echocardiography study was performed. Imaging system used: [employer]. Indications Indications for study: shortness of breath. [facility] Radiology Study observation (narrative) [facility] ECHOCARDIOGRAMon 01-18-2024 Echocardiography ? Left Ventricle: Chamber size is normal. Increased wall thickness. Concentric hypertrophy. Normal global systolic function. Regional wall motion is normal. Ejection fraction is normal (55 - 60%). ? Right Ventricle: Chamber size is normal. Systolic function is low normal. ? No hemodynamically significnat valve disease. ? Moderate pericardial effusion. There is no evidence of tamponade. Table formatting from the original result was not included. Images from the original result were not included. Facility [facility] Patient Information Patient Name George Styles Legal Sex Male Indication for Exam Priority: STAT Dx: SOB (shortness of breath) [R06.02 (ICD-10-CM)] Order Question Reason for Exam New JENSEN HULL Interpretation Summary ? Left Ventricle: Chamber size is normal. Increased wall thickness. Concentric hypertrophy. Normal global systolic function. Regional wall motion is normal. Ejection fraction is normal (55 - 60%). ? Right Ventricle: Chamber size is normal. Systolic function is low normal. ? No hemodynamically significnat valve disease. ? Moderate pericardial effusion. There is no evidence of tamponade. Findings Left Ventricle Chamber size is normal. Increased wall thickness. Concentric hypertrophy. Normal global systolic function. Regional wall motion is normal. Ejection fraction is normal (55 - 60%). Diastolic function is normal. Right Ventricle Chamber size is normal. Systolic function is low normal. Left Atrium Chamber size is normal. Right Atrium Chamber size is normal. Septum The atrial septum is normal. Mitral Valve Normal appearing leaflets. Leaflet mobility is normal. Trace regurgitation. No valve stenosis. Aortic Valve Trileaflet valve. Cusp sclerosis visualized. Leaflet mobility is normal. Trace regurgitation. No stenosis. Tricuspid Valve Normal leaflets. Leaflet mobility is normal. No regurgitation. No stenosis. Pulmonary artery systolic pressure (PASP) is unable to be estimated. Pulmonic Valve Normal structure. Trace regurgitation. No stenosis. Aorta No dilation to extent seen. Pericardium Moderate pericardial effusion. There is no evidence of tamponade. IVC/SVC The inferior vena cava is enlarged. Pulmonary Artery The pulmonary artery is normal. Reading Providers Reading Role Read Date Gian Carlos MD Echo Merrick 01/18/2024 Left Heart Measurements LV - Systole LVIDD 5.53 cm IVS 1.11 cm LVIDS 3.97 cm PW 1.16 cm LV RWT 0.42 LV Mass Index 122.5 g/m2 LV EDV BP 180 mL LV ESV BP 69 mL BP EF 62 % LV stroke volume BP (ml) 111 mL LV stroke volume index BP 53.37 mL/m2 LV - Diastole MV pk E meliton 1.39 m/s MV pk A meliton 0.52 m/s E/A ratio 2.67 e' septal pk meliton 0.07 m/s e' lateral pk meliton 0.08 m/s Avg e' pk meliton 0.07 m/s E/e' septal ratio 21.29 E/e' lateral ratio 17.62 Avg E/e' ratio 19.45 LV - HCM AV LVOT peak gradient 4 mmHg Left Atrium LA ESV SP 4CH (MOD) 53 mL LA ESV SP 2CH (MOD) 76 mL LA ESV BP (MOD) index 31 mL/m2 Right Heart Measurements RV - 2D RV basal diam 4.52 cm RV mid diam 3.7 cm RV long diam 8.96 cm RV Area diastolic 33.2 cm2 RV Area systolic 21.3 cm2 RV Fractional area change 35.8 % RV - Doppler TAPSE 2.19 cm RV S' 22.01 cm/s Right Atrium RA vol index 4CH (MOD) 18.27 mL/m2 RA area 4CH (MOD) 14.5 cm2 Great Vessels Aortic Root - End Diastolic Sinus 3.24 cm STJ 2.61 cm Ascending aorta 3.39 cm Inferior Vena Cava IVC ostium 2.3 cm Doppler Measurements - Aortic Valve Stenosis LVOT diameter 2.3 cm LVOT area 4.15 cm2 LVOT peak meliton 1.06 m/s LVOT peak VTI 26.61 cm Stroke Volume 111 cm/mL Stroke volume index 53 Ao peak meliton 1.46 m/s Ao VTI 35.74 cm AV peak gradient 9 mmHG AV mean gradient 5 mmHg DI (VTI) 0.74 m/2 DI (Vmax) 0.73 VEGA (continuity Vmax) 3.01 cm2 VEGA index (continuity Vmax) 1.45 m/s VEGA (continuity VTI) 3.09 cm2 VEGA index (continuity VTI) 1.49 cm2/m2 LVOT stroke volume 111 cm3 LVOT stroke volume index 53.13 ml/m2 Doppler Measurements - Mitral Valve Stenosis MV pk E meliton 1.39 m/s MV pk A meliton 0.52 m/s E/A ratio 2.67 MV VTI 37.7 cm MV stenosis pressure 1/2 time 58.56 ms MV peak gradient 11 mmHg MV mean gradient 3 mmHg MV valve area p 1/2 method 3.76 cm2 MV valve area by continuity eq 2.93 cm2 PISA-MS MV pk E meliton 1.39 m/s PISA-MR Mr max meliton 4.21 m/s MR VTI 134.5 cm Doppler Measurements - Tricuspid Valve Stenosis IVC ostium 2.3 cm Doppler Measurements - Pulmonic Valve Stenosis RVOT peak meliton 0.96 m/s RVOT peak VTI 20.86 cm RVOT peak gradient 4 mmHg Vitals Height We (more content not included)... Normal [facility] HEPATIC FUNCTION PANELon Albumin [Mass/Vol] 3.5 g/dL 3.5 - 5.0 g/dL [facility] ALP [Catalytic activity/Vol] 70 U/L 32 - 126 U/L [facility] ALT [Catalytic activity/Vol] 8 U/L Low 10 - 52 U/L [facility] AST [Catalytic activity/Vol] 20 U/L 10 - 39 U/L [facility] Bilirubin [Mass/Vol] 1.7 mg/dL High NINF - 1.5 mg/dL [facility] Bilirubin.direct [Mass/Vol] 0.4 mg/dL High NINF - 0.3 mg/dL [facility] Protein [Mass/Vol] 6.0 g/dL Low 6.4 - 8.3 g/dL [facility] Albumin [Mass/Vol] 3.5 g/dL Normal 3.5-5.0 [facility] Comment on above: Performed By: #### C HMJessica, HFP, MGO #### [facility] (DEFAULT) [address] [place] [address] ALP [Catalytic activity/Vol] 70 U/L Normal 32-126 [facility] Comment on above: Performed By: #### Chinedu HM7, HFP, MGO #### [facility] (DEFAULT) [address] [place] [address] ALT [Catalytic activity/Vol] 8 U/L Low 10-52 [facility] Comment on above: Performed By: #### C HM7, HFP, MGO #### [facility] (DEFAULT) [address] [place] [address] 35118 AST [Catalytic activity/Vol] 20 U/L Normal 10-39 [facility] Comment on above: Performed By: #### C HM7, HFP, MGO #### [facility] (DEFAULT) [address] [place] [address] 28513 Bilirubin [Mass/Vol] 1.7 mg/dL High <1.5 [facility] Comment on above: Performed By: #### C HM7, HFP, MGO #### [facility] (DEFAULT) [address] [place] [address] 00009 Bilirubin.indirect [Mass/Vol] 0.4 mg/dL High <0.3 [facility] Comment on above: Performed By: #### Chinedu HM7, HFP, MGO #### [facility] (DEFAULT) [address] [place] [address] 75540 Protein [Mass/Vol] 6.0 g/dL Low 6.4-8.3 [facility] Comment on above: Performed By: #### Chinedu HM7, HFP, MGO #### [facility] (DEFAULT) [address] [place] [address] 51266 MAGNESIUMon 01-18-2024 Magnesium [Mass/Vol] 1.5 mg/dL Low 1.6 - 2 .6 mg/dL [facility] Magnesium [Mass/Vol] 1.5 mg/dL Low 1.6-2.6 [facility] Comment on above: Performed By: #### C HM7, HFP, MGO #### [facility] (DEFAULT) [address] [place] [address] 08963 No Panel Informationon 01-18 Interpretation and review of laboratory results Abnormal [facility] PT,INR,PTTon 01-18-2024 aPTT Coag (PPP) [Time] 30.0 s [facility] INR Coag (Bld) [Relative time] 1.1 {INR} 0.9 - 1.1 [facility] Interpretation and review of laboratory results Abnormal [facility] PT Coag (PPP) [Time] 14.5 s High [facility] aPTT Coag (Bld) [Time] 30.0 s Normal 24.0-34.3 [facility] Comment on above: Performed By: #### C A, CHM7, HFP, IPB, MGO #### [facility] (DEFAULT) [address] [place] [address] 45745 INR Coag (PPP) [Relative time] 1.1 {INR} Normal 0.9-1.1 [facility] Comment on above: Performed By: #### C A, CHM7, HFP, IPB, MGO #### [facility] (DEFAULT) [address] [place] [address] 91568 PT Coag (PPP) [Time] 14.5 s High 11.9-14.2 [facility] Comment on above: Performed By: #### C A, CHM7, HFP, IPB, MGO #### [facility] (DEFAULT) [address] [place] [address] 29715 TSH W/FT4 REFLEXon 4 Interpretation and review of laboratory results Normal [facility] TSH Qn 2.660 m[IU]/L [facility] TSH 2.660 uIU/mL Normal 0.550-4.780 [facility] Comment on above: Performed By: #### C HM7, HFP, MGO #### [facility] (DEFAULT) [address] [place] [address] 77019 AFP TUMOR MARKERon 4 AFP Tumor Marker <2.2 Normal <8.1 [facility] Comment on above: Result Comment: This test was performed on the [employer] Immunoassay platform by [employer] which is a two-site sandwich chemiluminescent immunoassay. It is important to note that assays using different manufacturers and/or methods may not be comparable. Performed By: #### C A, CHM7, HFP, IPB, MGO #### [facility] (DEFAULT) [address] [place] [address] DARYL AURIS SCREEN BY PCRO rdered By: Mynor Alejandro on 01-17-2024 Daryl auris Screen by PCR Not detected Not Detected [facility] Interpretation and review of laboratory results Normal [facility] This test was performed using a real-time [...] regarded as investigational or for research. [facility] CBC,PLATELETSon 01-17-2024 Erythrocyte distribution width (RBC) [Ratio] 14.0 % 10.9 - 14.3 % [facility] Hematocrit (Bld) [Volume fraction] 37.2 % Low 39.6 - 48.8 % [facility] Hemoglobin (Bld) [Mass/Vol] 12.0 g/dL Low 13.4 - 16.8 g/dL [facility] Interpretation and review of laboratory results Abnormal [facility] MCH (RBC) [Entitic mass] 27.9 pg 26.1 - 33.3 pg [facility] MCHC (RBC) [Mass/Vol] 32.3 g/dL 31.9 - 36.5 g/dL [facility] MCV (RBC) [Entitic vol] 86.5 fL 79.0 - 94.5 fL [facility] Platelet mean volume (Bld) [Entitic vol] 10.5 fL 8.7 - 12.3 fL [facility] Platelets (Bld) [#/Vol] 159 10*3/uL 146 - 337 K/uL [facility] RBC (Bld) [#/Vol] 4.30 10*6/uL Low [facility] WBC (Bld) [#/Vol] 3.69 10*3/uL Low 3.73 - 10. 10 K/uL [facility] Hematocrit (Bld) [Volume fraction] 37.2 % Low 39.6-48.8 [facility] Comment on above: Performed By: #### Chinedu HM7, HFP, MGO #### [facility] (DEFAULT) [address] [place] [address] 03740 Hemoglobin (Bld) [Mass/Vol] 12.0 g/dL Low 13.4-16.8 [facility] Comment on above: Performed By: #### Chinedu HM7, HFP, MGO #### [facility] (DEFAULT) [address] [place] [address] 19287 MCV (RBC) [Entitic vol] 86.5 fL Normal 79.0-94.5 [facility] Comment on above: Performed By: #### Chinedu HM7, HFP, MGO #### [facility] (DEFAULT) [address] [place] [address] 76071 Mean Cell Hgb 27.9 pg Normal 26.1-33.3 [facility] Comment on above: Performed By: #### Chinedu HM7, HFP, MGO #### [facility] (DEFAULT) [address] [place] [address] 38425 Mean Cell Hgb Conc 32.3 g/dL Normal 31.9-36.5 [facility] Comment on above: Performed By: #### Chinedu HM7, HFP, MGO #### [facility] (DEFAULT) [address] [place] [address] 67792 Platelet mean volume (Bld) [Entitic vol] 10.5 fL Normal 8.7-12.3 [facility] Comment on above: Performed By: #### Chinedu HM7, HFP, MGO #### [facility] (DEFAULT) [address] [place] [address] 69343 Platelets (Bld) [#/Vol] 159 10*3/uL Normal 146-337 [facility] Comment on above: Performed By: #### C HM7, HFP, MGO #### [facility] (DEFAULT) [address] [place] [address] 56482 RBC (Bld) [#/Vol] 4.30 10*6/uL Low 4.38-5.83 [facility] Comment on above: Performed By: #### C HM7, HFP, MGO #### [facility] (DEFAULT) [address] [place] [address] 39346 RBC Distribution 14.0 % Normal 10.9-14.3 [facility] Comment on above: Performed By: #### Chinedu HM7, HFP, MGO #### [facility] (DEFAULT) [address] [place] [address] 38566 WBC (Bld) [#/Vol] 3.69 10*3/uL Low 3.73-10.10 [facility] Comment on above: Performed By: #### Chinedu HM7, HFP, MGO #### [facility] (DEFAULT) [address] [place] [address] 45920 CHEM 7 (LYTES,BUN,CREA,GLUC) on 01-17-2024 Anion gap [Moles/Vol] 13 mmol/L 7 - 17 mmol/L [facility] Chloride [Moles/Vol] 109 mmol/L High 98 - 10 8 mmol/L [facility] CO2 [Moles/Vol] 21 mmol/L 21 - 31 mmol/L [facility] Creatinine [Mass/Vol] 1.04 mg/dL 0.70 - 1.30 mg/dL [facility] eGFR, CKD-EPI, Male 86 - PINF [facility] Comment on above: Reported eGFR is bas ed on the CKD-EPI 2020 equation using creatinine, age, and sex. Glucose [Mass/Vol] 82 mg/dL 70 - 99 mg/dL [facility] Osmolality Calc [Osmolality] 292 [facility] Potassium [Moles/Vol] 4.4 mmol/L 3.5 - 5.0 mmol/L [facility] Sodium [Moles/Vol] 139 mmol/L 135 - 145 mmol/L [facility] Urea nitrogen [Mass/Vol] 17 mg/dL 7 - 25 mg/dL [facility] Urea nitrogen/Creatinine [Mass ratio] 16 mg/mg [facility] Anion gap [Moles/Vol] 13 mmol/L Normal 7-17 [facility] Comment on above: Performed By: #### C HM7, HFP, MGO #### [facility] (DEFAULT) [address] [place] [address] 59936 Chloride [Moles/Vol] 109 mmol/L High 98-108 [facility] Comment on above: Performed By: #### C HM7, HFP, MGO #### [facility] (DEFAULT) [address] [place] [address] 46756 CO2 [Moles/Vol] 21 mmol/L Normal 21-31 [facility] Comment on above: Performed By: #### Chinedu HM7, HFP, MGO #### [facility] (DEFAULT) [address] [place] [address] 82335 Creatinine [Mass/Vol] 1.04 mg/dL Normal 0.70-1.30 [facility] Comment on above: Performed By: #### C HM7, HFP, MGO #### [facility] (DEFAULT) [address] [place] [address] 79804 GFR/1.73 sq M.predicted among non-blacks MDRD (S/P/Bld) [Vol rate/Area] 86 mL/min/{1.73_m2} Normal >=60 [facility] Comment on above: Result Comment: Repo rted eGFR is based on the CKD-EPI 2020 equation using creatinine, age, and sex. Performed By: #### C HM7, HFP, MGO #### [facility] (DEFAULT) [address] [place] [address] 60167 Glucose [Mass/Vol] 82 mg/dL Normal 70-99 [facility] Comment on above: Performed By: #### C HM7, HFP, MGO #### [facility] (DEFAULT) [address] [place] [address] 52657 Osmolality [Osmolality] 292 mosm/kg Normal 278-305 [facility] Comment on above: Performed By: #### C HM7, HFP, MGO #### [facility] (DEFAULT) [address] [place] [address] 25476 Potassium [Moles/Vol] 4.4 mmol/L Normal 3.5-5.0 [facility] Comment on above: Performed By: #### C HM7, HFP, MGO #### [facility] (DEFAULT) [address] [place] [address] 97196 Sodium [Moles/Vol] 139 mmol/L Normal 135-145 [facility] Comment on above: Performed By: #### C HM7, HFP, MGO #### [facility] (DEFAULT) [address] [place] [address] 86954 Urea nitrogen [Mass/Vol] 17 mg/dL Normal 7-25 [facility] Comment on above: Performed By: #### C HM7, HFP, MGO #### [facility] (DEFAULT) [address] [place] [address] 63755 Urea nitrogen/Creatinine [Mass ratio] 16 mg/mg Normal [facility] Comment on above: Performed By: #### C HM7, HFP, MGO #### [facility] (DEFAULT) [address] [place] [address] ABDOMEN/PELVIS WITHOUT CO NTRASTon 01-17-2024 CT ABDOMEN/PELVIS WITHOUT CONTRAST EXAM: CT ABDOMEN/PELVIS WITHOUT CONTRAST, 01/17/2024 10:07 [...] unremarkable. 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 Right lower quadrant renal transplant without hydronephrosis. 2 mm nonobstructive renal transplant stone. Retroperitoneal/Vascul ature: Previously described abdominal lymph nodes have decreased [...] left upper left retroperitoneum and gastrohepatic region. Gastrointestinal/Mesen carlene: The bowel loops are non-dilated without wall thickening. No ascites or fluid collections.. PELVIS Bladder: The bladder is normal. Genital: The prostate and seminal vesicles are unremarkable. Other: Small fat-containing umbilical hernia. Bony Structures: Multilevel degenerative changes of the spine. Stable mild T12 superior endplate compression deformity with a Schmorl's node. Grade 1 retrolisthesis of L5 on S1.. IMPRESSION: 1. Since 08/31/2023, resolution of previously seen abdominal lymphadenopathy. 2. New mild to moderate pericardial effusion. 3. Moderate to large right pleural effusion with complete atelectasis of the visualized right lower lobe and most of the middle lobe. Trace left pleural effusion. Normal [facility] CT Abdomen and Pelvis WO geoff manriquezon 01-17-2024 IMPRESSION: 1. Since 08/31/2023, resolution of previously seen abdominal lymphadenopathy. 2. New mild to moderate pericardial effusion. 3. Moderate to large right pleural effusion with complete atelectasis of the visualized right lower lobe and most of the middle lobe. Trace left pleural effusion. OLOGY EXAM: CT ABDOMEN/PELVIS WITHOUT CONTRAST, 01/17/2024 10:07 [...] unremarkable. 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 Right lower quadrant renal transplant without hydronephrosis. 2 mm nonobstructive renal transplant stone. Retroperitoneal/Vascul ature: Previously described abdominal lymph nodes have decreased [...] left upper left retroperitoneum and gastrohepatic region. Gastrointestinal/Mesen carlene: The bowel loops are non-dilated without wall [...] unremarkable. 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 Right lower quadrant renal transplant without hydronephrosis. 2 mm nonobstructive renal transplant stone. Retroperitoneal/Vascul ature: Previously described abdominal lymph nodes have decreased [...] left upper left retroperitoneum and gastrohepatic region. Gastrointestinal/Mesen carlene: The bowel loops are non-dilated without wall [...] middle lobe. Trace left pleural effusion. [facility] Radiology Study observation (narrative) [facility] HEPATIC FUNCTION PANELon Albumin [Mass/Vol] 3.5 g/dL 3.5 - 5.0 g/dL [facility] ALP [Catalytic activity/Vol] 73 U/L 32 - 126 U/L [facility] ALT [Catalytic activity/Vol] 7 U/L Low 10 - 52 U/L [facility] AST [Catalytic activity/Vol] 25 U/L 10 - 39 U/L [facility] Bilirubin [Mass/Vol] 1.8 mg/dL High NINF - 1.5 mg/dL [facility] Bilirubin.direct [Mass/Vol] 0.3 mg/dL High NINF - 0.3 mg/dL [facility] Protein [Mass/Vol] 6.0 g/dL Low 6.4 - 8.3 g/dL [facility] Albumin [Mass/Vol] 3.5 g/dL Normal 3.5-5.0 [facility] Comment on above: Performed By: #### C HM7, HFP, MGO #### [facility] (DEFAULT) [address] [place] [address] 21717 ALP [Catalytic activity/Vol] 73 U/L Normal 32-126 [facility] Comment on above: Performed By: #### C HM7, HFP, MGO #### [facility] (DEFAULT) [address] [place] [address] 26237 ALT [Catalytic activity/Vol] 7 U/L Low 10-52 [facility] Comment on above: Performed By: #### C HM7, HFP, MGO #### [facility] (DEFAULT) [address] [place] [address] 99402 AST [Catalytic activity/Vol] 25 U/L Normal 10-39 [facility] Comment on above: Performed By: #### C HM7, HFP, MGO #### [facility] (DEFAULT) [address] [place] [address] 04657 Bilirubin [Mass/Vol] 1.8 mg/dL High <1.5 [facility] Comment on above: Performed By: #### C HM7, HFP, MGO #### [facility] (DEFAULT) [address] [place] [address] 36072 Bilirubin.indirect [Mass/Vol] 0.3 mg/dL High <0.3 [facility] Comment on above: Performed By: #### C HM7, HFP, MGO #### [facility] (DEFAULT) [address] [place] [address] 48668 Protein [Mass/Vol] 6.0 g/dL Low 6.4-8.3 [facility] Comment on above: Performed By: #### C HM7, HFP, MGO #### [facility] (DEFAULT) [address] [place] [address] 39135 HISTOPLASMA AND BLASTOMYCES ANTIGEN, ENZYME IMMUNOASSAY, SERMon 01-17-2024 Histoplasma/Blastomyce s Ag Result Not detected Normal Not Detected [facility] Comment on above: Result Comment: No a ntigen from Histoplasma or Blastomyces detected. False negative results may occur depending on extent of disease, and/or site of infection. Repeat testing on a new specimen if clinically indicated. Performed By: #### C Tray, CHM7, TAVO, IPB, MGO #### [facility] (DEFAULT) [address] [place] [address] 36557 Histoplasma/Blastomyce s Ag Value Not detected Normal [facility] Comment on above: Result Comment: ADDITIONAL INFORMATION This test was developed and its performance characteristics determined by [facility] in a manner consistent with CLIA requirements. This test has not been cleared or approved by the U.S. Food and Drug Administration. Test Performed by: [id number] [place] [address] Vertical Contour Band Saw Operator: Rosendo Bose M.D. Ph.D.; CLIA# [id number] Performed By: #### C Tray, CHM7, TAVO, IPB, MGO #### [facility] (DEFAULT) [address] [address] MAGNESIUMon 01-17-2024 Interpretation and review of laboratory results Normal [facility] Magnesium [Mass/Vol] 1.7 mg/dL 1.6 - 2 .6 mg/dL [facility] Magnesium [Mass/Vol] 1.7 mg/dL Normal 1.6-2.6 [facility] Comment on above: Performed By: #### C HM7, HFP, MGO #### [facility] (DEFAULT) [address] [place] [address] 58502 No Panel Informationon 01-17 Interpretation and review of laboratory results Abnormal [facility] PT,INR,PTTon 01-17-2024 aPTT Coag (PPP) [Time] 29.9 s [facility] INR Coag (Bld) [Relative time] 1.1 {INR} 0.9 - 1.1 [facility] Interpretation and review of laboratory results Abnormal [facility] PT Coag (PPP) [Time] 14.5 s High [facility] aPTT Coag (Bld) [Time] 29.9 s Normal 24.0-34.3 [facility] Comment on above: Performed By: #### C HM7, HFP, MGO #### [facility] (DEFAULT) [address] [place] [address] 21834 INR Coag (PPP) [Relative time] 1.1 {INR} Normal 0.9-1.1 [facility] Comment on above: Performed By: #### Chinedu HMJessica, HFP, MGO #### [facility] (DEFAULT) [address] [place] [address] 19415 PT Coag (PPP) [Time] 14.5 s High 11.9-14.2 [facility] Comment on above: Performed By: #### C HM7, HFP, MGO #### [facility] (DEFAULT) [address] [place] [address] 95452 B-TYPE NATRIURETIC PEPTIDE ( BRAIN)on 01-16-2024 Interpretation and review of laboratory results Abnormal [facility] Natriuretic peptide B (Bld) [Mass/Vol] 212 pg/mL High 0 - 100 pg/mL [facility] Natriuretic peptide B (Bld) [Mass/Vol] 212 pg/mL High 0-100 [facility] Comment on above: Performed By: #### Chinedu HM7, HFP, MGO #### [facility] (DEFAULT) [address] [place] [address] CALCIUMon 01-16-2024 Calcium [Mass/Vol] 8.5 mg/dL Low 8.6 - 10. 5 mg/dL [facility] Calcium [Mass/Vol] 8.5 mg/dL Low 8.6-10.5 [facility] Comment on above: Performed By: #### C A, CHM7, HFP, IPB, MGO #### [facility] (DEFAULT) [address] [address] DARYL AURIS SCREEN BY PCRo n 01-16-2024 [...] or for research. Performed By: #### C HM7, HFP, MGO #### [facility] (DEFAULT) [address] [address] CBC AND ELECTRONIC DIFFon Basophils (Bld) [#/Vol] K/uL 0.00 - 0.09 K/uL [facility] Basophils/100 WBC (Bld) 0.6 % [facility] Differential cell count method Nom (Bld) Electronic Differential [facility] Eosinophils (Bld) [#/Vol] 0.09 10*3/uL 0.00 - 0.48 K/uL [facility] Eosinophils/100 WBC (Bld) 2.5 % [facility] Erythrocyte distribution width (RBC) [Ratio] 14.0 % 10.9 - 14.3 % [facility] Hematocrit (Bld) [Volume fraction] 37.4 % Low 39.6 - 48.8 % [facility] Hemoglobin (Bld) [Mass/Vol] 12.1 g/dL Low 13.4 - 16.8 g/dL [facility] Immature granulocytes (Bld) [#/Vol] K/uL NINF - 0.07 K/uL [facility] Immature granulocytes/100 WBC (Bld) 0.3 % [facility] Interpretation and review of laboratory results Abnormal [facility] Lymphocytes (Bld) [#/Vol] 1.16 10*3/uL 0.83 - 3.57 K/uL [facility] Lymphocytes/100 WBC (Bld) 32.0 % [facility] MCH (RBC) [Entitic mass] 28.4 pg 26.1 - 33.3 pg [facility] MCHC (RBC) [Mass/Vol] 32.4 g/dL 31.9 - 36.5 g/dL [facility] MCV (RBC) [Entitic vol] 87.8 fL 79.0 - 94.5 fL [facility] Monocytes (Bld) [#/Vol] 0.43 10*3/uL 0.24 - 0.93 K/uL [facility] Monocytes/100 WBC (Bld) 11.9 % [facility] Neutrophils (Bld) [#/Vol] 1.91 10*3/uL 1.57 - 6.19 K/uL [facility] Nucleated RBC/100 WBC (Bld) [Ratio] 0.0 % NINF [facility] Platelet mean volume (Bld) [Entitic vol] 10.1 fL 8.7 - 12.3 fL [facility] Platelets (Bld) [#/Vol] 155 10*3/uL 146 - 337 K/uL [facility] RBC (Bld) [#/Vol] 4.26 10*6/uL Low [facility] Segmented neutrophils/100 WBC (Bld) 52.7 % [facility] WBC (Bld) [#/Vol] 3.62 10*3/uL Low 3.73 - 10. 10 K/uL [facility] Abs Baso Auto < Normal 0.00-0.09 [facility] Comment on above: Performed By: #### C HM7, HFP, MGO #### [facility] (DEFAULT) [address] [place] [address] Basophils/100 WBC (Bld) 0.6 % Normal [facility] Comment on above: Performed By: #### C HM7, HFP, MGO #### [facility] (DEFAULT) [address] [place] [address] DIFF STATUS Electronic Differential Normal [facility] Comment on above: Performed By: #### C HM7, HFP, MGO #### [facility] (DEFAULT) [address] [place] [address] Eosinophils (Bld) [#/Vol] 0.09 10*3/uL Normal 0.00-0.48 [facility] Comment on above: Performed By: #### C HM7, HFP, MGO #### [facility] (DEFAULT) [address] [place] [address] Eosinophils/100 WBC (Bld) 2.5 % Normal [facility] Comment on above: Performed By: #### C HM7, HFP, MGO #### [facility] (DEFAULT) [address] [place] [address] Hematocrit (Bld) [Volume fraction] 37.4 % Low 39.6-48.8 [facility] Comment on above: Performed By: #### C HM7, HFP, MGO #### [facility] (DEFAULT) [address] [place] [address] Hemoglobin (Bld) [Mass/Vol] 12.1 g/dL Low 13.4-16.8 [facility] Comment on above: Performed By: #### C HM7, HFP, MGO #### [facility] (DEFAULT) [address] [place] [address] Immature Grans % 0.3 % Normal [facility] Comment on above: Performed By: #### C HM7, HFP, MGO #### [facility] (DEFAULT) [address] [place] [address] Immature Grans Absolute < Normal <=0.07 [facility] Comment on above: Performed By: #### C HM7, HFP, MGO #### [facility] (DEFAULT) [address] [place] [address]87 Lymphocytes (Bld) [#/Vol] 1.16 10*3/uL Normal 0.83-3.57 [facility] Comment on above: Performed By: #### C HM7, HFP, MGO #### [facility] (DEFAULT) [address] [place] [address] Lymphocytes/100 WBC (Bld) 32.0 % Normal [facility] Comment on above: Performed By: #### C HM7, HFP, MGO #### [facility] (DEFAULT) [address] [place] [address] MCV (RBC) [Entitic vol] 87.8 fL Normal 79.0-94.5 [facility] Comment on above: Performed By: #### C HM7, HFP, MGO #### [facility] (DEFAULT) [address] [place] [address] Mean Cell Hgb 28.4 pg Normal 26.1-33.3 [facility] Comment on above: Performed By: #### C HM7, HFP, MGO #### [facility] (DEFAULT) [address] [place] [address] 06724 Mean Cell Hgb Conc 32.4 g/dL Normal 31.9-36.5 [facility] Comment on above: Performed By: #### C HM7, HFP, MGO #### [facility] (DEFAULT) [address] [place] [address] Monocytes (Bld) [#/Vol] 0.43 10*3/uL Normal 0.24-0.93 [facility] Comment on above: Performed By: #### C HM7, HFP, MGO #### [facility] (DEFAULT) [address] [place] [address]851 Monocytes/100 WBC (Bld) 11.9 % Normal [facility] Comment on above: Performed By: #### C HM7, HFP, MGO #### [facility] (DEFAULT) [address] [place] [address] Nucleated RBC 0.0 /100 WBC Normal <=0.2 [facility] Comment on above: Performed By: #### Chinedu HM7, HFP, MGO #### [facility] (DEFAULT) [address] [place] [address] Platelet mean volume (Bld) [Entitic vol] 10.1 fL Normal 8.7-12.3 [facility] Comment on above: Performed By: #### Chinedu HM7, HFP, MGO #### [facility] (DEFAULT) [address] [place] [address] Platelets (Bld) [#/Vol] 155 10*3/uL Normal 146-337 [facility] Comment on above: Performed By: #### Chinedu HM7, HFP, MGO #### [facility] (DEFAULT) [address] [place] [address] RBC (Bld) [#/Vol] 4.26 10*6/uL Low 4.38-5.83 [facility] Comment on above: Performed By: #### Chinedu HM7, HFP, MGO #### [facility] (DEFAULT) [address] [place] [address] RBC Distribution 14.0 % Normal 10.9-14.3 [facility] Comment on above: Performed By: #### Chinedu HM7, HFP, MGO #### [facility] (DEFAULT) [address] [place] [address] Segs + Bands Auto 52.7 % Normal [facility] Comment on above: Performed By: #### Chinedu HM7, HFP, MGO #### [facility] (DEFAULT) [address] [place] [address] Segs + Bands,Absolute Auto 1.91 K/uL Normal 1.57-6.19 [facility] Comment on above: Performed By: #### Chinedu HM7, HFP, MGO #### [facility] (DEFAULT) [address] [place] [address] WBC (Bld) [#/Vol] 3.62 10*3/uL Low 3.73-10.10 [facility] Comment on above: Performed By: #### C HM7, HFP, MGO #### [facility] (DEFAULT) [address] [place] [address] CHEM 7 (LYTES,BUN,CREA,GLUC) on 01-16-2024 Anion gap [Moles/Vol] 11 mmol/L 7 - 17 mmol/L [facility] Chloride [Moles/Vol] 108 mmol/L 98 - 10 8 mmol/L [facility] CO2 [Moles/Vol] 24 mmol/L 21 - 31 mmol/L [facility] Creatinine [Mass/Vol] 1.04 mg/dL 0.70 - 1.30 mg/dL [facility] eGFR, CKD-EPI, Male 86 - PINF [facility] Comment on above: Reported eGFR is bas ed on the CKD-EPI 2020 equation using creatinine, age, and sex. Glucose [Mass/Vol] 95 mg/dL 70 - 99 mg/dL [facility] Osmolality Calc [Osmolality] 293 [facility] Potassium [Moles/Vol] 4.0 mmol/L 3.5 - 5.0 mmol/L [facility] Sodium [Moles/Vol] 139 mmol/L 135 - 145 mmol/L [facility] Urea nitrogen [Mass/Vol] 19 mg/dL 7 - 25 mg/dL [facility] Urea nitrogen/Creatinine [Mass ratio] 18 mg/mg [facility] Anion gap [Moles/Vol] 11 mmol/L Normal 7-17 [facility] Comment on above: Performed By: #### C A, CHM7, HFP, IPB, MGO #### [facility] (DEFAULT) [address] [place] [address] Chloride [Moles/Vol] 108 mmol/L Normal 98-108 [facility] Comment on above: Performed By: #### C A, CHM7, HFP, IPB, MGO #### [facility] (DEFAULT) [address] [place] [address] CO2 [Moles/Vol] 24 mmol/L Normal 21-31 [facility] Comment on above: Performed By: #### C A, CHM7, HFP, IPB, MGO #### [facility] (DEFAULT) [address] [place] [address] Creatinine [Mass/Vol] 1.04 mg/dL Normal 0.70-1.30 [facility] Comment on above: Performed By: #### C A, CHM7, HFP, IPB, MGO #### [facility] (DEFAULT) [address] [place] [address] GFR/1.73 sq M.predicted among non-blacks MDRD (S/P/Bld) [Vol rate/Area] 86 mL/min/{1.73_m2} Normal >=60 [facility] Comment on above: Result Comment: Repo rted eGFR is based on the CKD-EPI 2020 equation using creatinine, age, and sex. Performed By: #### C A, CHM7, HFP, IPB, MGO #### [facility] (DEFAULT) [address] [place] [address]175 Glucose [Mass/Vol] 95 mg/dL Normal 70-99 [facility] Comment on above: Performed By: #### C A, CHM7, HFP, IPB, MGO #### [facility] (DEFAULT) [address] [place] [address] Osmolality [Osmolality] 293 mosm/kg Normal 278-305 [facility] Comment on above: Performed By: #### C A, CHM7, HFP, IPB, MGO #### [facility] (DEFAULT) [address] [place] [address]244 Potassium [Moles/Vol] 4.0 mmol/L Normal 3.5-5.0 [facility] Comment on above: Performed By: #### C A, CHM7, HFP, IPB, MGO #### [facility] (DEFAULT) [address] [place] [address]001 Sodium [Moles/Vol] 139 mmol/L Normal 135-145 [facility] Comment on above: Performed By: #### C A, CHM7, HFP, IPB, MGO #### [facility] (DEFAULT) [address] [place] [address] 32472 Urea nitrogen [Mass/Vol] 19 mg/dL Normal 7-25 [facility] Comment on above: Performed By: #### C A, CHM7, HFP, IPB, MGO #### [facility] (DEFAULT) [address] [place] [address] 92673 Urea nitrogen/Creatinine [Mass ratio] 18 mg/mg Normal [facility] Comment on above: Performed By: #### C A, CHM7, HFP, IPB, MGO #### [facility] (DEFAULT) [address] [place] [address] D-DIMER,QUANTITATIVEOrdered By: Shaji Kelly on 01-16-2024 Fibrin D-dimer FEU (PPP) [Mass/Vol] 0.67 High [facility] Comment on above: The D-Dimer assay is intended for use in conjuction with a clinical pretest probability (PTP) assessment model to exclude pulmonary embolism (PE) and as an aid in the diagnosis of Deep Vein Thrombosis (DVT) in outpatients suspected of PE or DVT. For the assay in use at [facility] ([facility]), a cutoff of <0.50 mcg/mL has a Negative Predictive Value of 99.7% for exclusion of DVT in low and moderate PTP patients. Interpretation and review of laboratory results Abnormal [facility] D-DIMER,QUANTITATIVEon 01-16 D-Dimer, High Sensitivity 0.67 mcg/mL FEU High <0.50 [facility] Comment on above: Result Comment: The D-Dimer assay is intended for use in conjuction with a clinical pretest probability (PTP) assessment model to exclude pulmonary embolism (PE) and as an aid in the diagnosis of Deep Vein Thrombosis (DVT) in outpatients suspected of PE or DVT. For the assay in use at [facility] ([facility]), a cutoff of <0.50 mcg/mL has a Negative Predictive Value of 99.7% for exclusion of DVT in low and moderate PTP patients. Performed By: #### C HM7, HFP, MGO #### [facility] (DEFAULT) [address] [place] [address]50 HEPATIC FUNCTION PANELon Albumin [Mass/Vol] 3.7 g/dL 3.5 - 5.0 g/dL [facility] ALP [Catalytic activity/Vol] 70 U/L 32 - 126 U/L [facility] ALT [Catalytic activity/Vol] 8 U/L Low 10 - 52 U/L [facility] AST [Catalytic activity/Vol] 21 U/L 10 - 39 U/L [facility] Bilirubin [Mass/Vol] 1.9 mg/dL [facility] Bilirubin.direct [Mass/Vol] 0.4 mg/dL High NINF - 0.3 mg/dL [facility] Protein [Mass/Vol] 6.1 g/dL Low 6.4 - 8.3 g/dL [facility] Albumin [Mass/Vol] 3.7 g/dL Normal 3.5-5.0 [facility] Comment on above: Performed By: #### C A, CHM7, HFP, IPB, MGO #### [facility] (DEFAULT) [address] [place] [address] 27428 ALP [Catalytic activity/Vol] 70 U/L Normal 32-126 [facility] Comment on above: Performed By: #### C A, CHM7, HFP, IPB, MGO #### [facility] (DEFAULT) [address] [place] [address] 56584 ALT [Catalytic activity/Vol] 8 U/L Low 10-52 [facility] Comment on above: Performed By: #### C A, CHM7, HFP, IPB, MGO #### [facility] (DEFAULT) [address] [place] [address] 66222 AST [Catalytic activity/Vol] 21 U/L Normal 10-39 [facility] Comment on above: Performed By: #### C A, CHM7, HFP, IPB, MGO #### [facility] (DEFAULT) [address] [place] [address] 51014 Bilirubin [Mass/Vol] 1.9 mg/dL High <1.5 [facility] Comment on above: Performed By: #### C A, CHM7, HFP, IPB, MGO #### [facility] (DEFAULT) [address] [place] [address]60 Bilirubin.indirect [Mass/Vol] 0.4 mg/dL High <0.3 [facility] Comment on above: Performed By: #### Chinedu Feliz, CHM7, HFP, IPB, MGO #### [facility] (DEFAULT) [address] [place] [address] 97672 Protein [Mass/Vol] 6.1 g/dL Low 6.4-8.3 [facility] Comment on above: Performed By: #### C A, CHM7, HFP, IPB, MGO #### [facility] (DEFAULT) [address] [place] [address] 23682 MAGNESIUMon 01-16-2024 Magnesium [Mass/Vol] 1.7 mg/dL 1.6 - 2 .6 mg/dL [facility] Magnesium [Mass/Vol] 1.7 mg/dL Normal 1.6-2.6 [facility] Comment on above: Performed By: #### C A, CHM7, HFP, IPB, MGO #### [facility] (DEFAULT) [address] [place] [address] 77119 No Panel Informationon 01-16 Interpretation and review of laboratory results Abnormal [facility] Interpretation and review of laboratory results Normal [facility] PHOSPHATE, INORGANICon 01-16 Phosphate [Mass/Vol] 4.1 mg/dL 2.2 - 4 .6 mg/dL [facility] Phosphorous 4.1 mg/dL Normal 2.2-4.6 [facility] Comment on above: Performed By: #### C A, CHM7, HFP, IPB, MGO #### [facility] (DEFAULT) [address] [place] [address] 05386 PT,INR,PTTon 01-16-2024 aPTT Coag (PPP) [Time] 29.6 s [facility] INR Coag (Bld) [Relative time] 1.2 {INR} High 0.9 - 1.1 [facility] Interpretation and review of laboratory results Abnormal [facility] PT Coag (PPP) [Time] 14.9 s High [facility] aPTT Coag (Bld) [Time] 29.6 s Normal 24.0-34.3 [facility] Comment on above: Performed By: #### C HM7, HFP, MGO #### [facility] (DEFAULT) [address] [place] [address] 08858 INR Coag (PPP) [Relative time] 1.2 {INR} High 0.9-1.1 [facility] Comment on above: Performed By: #### C HM7, HFP, MGO #### [facility] (DEFAULT) [address] [place] [address] PT Coag (PPP) [Time] 14.9 s High 11.9-14.2 [facility] Comment on above: Performed By: #### C HM7, HFP, MGO #### [facility] (DEFAULT) [address] [place] [address] TACROLIMUS LEVEL, TROUGH (TN E DRUG LEVEL)Ordered By: Jimy Castillo on 01-16-2024 Interpretation and review of laboratory results Normal [facility] Tacrolimus (Bld) [Mass/Vol] 5.7 ng/mL Bone Marrow Transplant: 4.0-12.0, Therapeutic: 5.0-15.0 [facility] Method performed is a chemiluminescent microparticle immunoasssay on the [employer] i2000. The range is based on experience at [facility] and users should be aware that target concentrations vary widely depending on concomitant therapy, time post-transplant, and desired degree of immunosuppression. [facility] TACROLIMUS LEVEL, TROUGH (TN E DRUG LEVEL)on 01-16-2024 Tacrolimus, Trough 5.7 ng/mL Normal Bone Susana ow Transplant: 4.0-12.0, Therapeutic: 5.0-15.0 [facility] Comment on above: Order Comment: Pleas e draw at specified interval PRIOR to dose. Do not hold dose to wait for level. Specimens batched twice per day, (M-F) and once per day weekendsMethod performed is a chemiluminescent microparticle immunoasssay on the [employer] i2000.The range is based on experience at [facility] and users should be aware that target concentrations vary widely depending on concomitant therapy, time post-transplant, and desired degree of immunosuppression. Performed By: #### C A, CHM7, HFP, IPB, MGO #### [facility] (DEFAULT) [address] [place] [address] US ABDOMEN LIVER DOPPLERon 0 01-16-2024 US ABDOMEN LIVER DOPPLER EXAM: US ABDOMEN LIVER DOPPLER, 01/16/2024 07:12 [...] pleural effusion. Trace right upper quadrant ascites. IMPRESSION: 1. Patent liver transplant vasculature. 2. Liver transplant is mildly heterogeneous in echotexture with surface nodularity, correlate clinically for any evidence of cirrhosis. Indeterminate left lobe subcapsular hyperechoic foci. If clinically indicated, these could be further evaluated with a liver protocol MRI. 3. At least moderate right pleural effusion. Trace right upper quadrant ascites. Normal [facility] US.doppler Abdominal vessels on 01-16-2024 IMPRESSION: 1. [...] pleural effusion. Trace right upper quadrant ascites. [facility] Radiology Study observation (narrative) [facility] US.doppler Abdominal vessels Ordered By: Iona Duran on 01-16-2024 [facility] Work Phone: XR CHEST PA AND LATERAL 2 EWSon 01-16-2024 XR CHEST PA AND LATERAL 2 VIEWS EXAM: XR CHEST PA AND LATERAL 2 VIEWS, 01/16/2024 12:34 PM COMPARISON: September 04, 2023 CLINICAL INDICATIONS: evaluate R pleural effusion and opacity RELEVANT CLINICAL HISTORY: FINDINGS: (Adequate technique) Implanted Devices: None Lungs: Clear, without mass, interstitial disease, or consolidation. Pleural Spaces: Moderate right effusion. No pneumothorax. Mediastinum and Susan: Normal Cardiac silhouette and great vessels: Cardiomegaly. Unremarkable aorta. Chest Wall: Normal IMPRESSION: Moderate right pleural effusion. Normal [facility] XR Chest PA and Lateralon IMPRESSION: Moderate [...] Normal IMPRESSION IMPRESSION: Moderate right pleural effusion. [facility] Radiology Study observation (narrative) [facility] XR Chest PA and LateralOrder ed By: Daisha Patterson on 01-16-2024 [facility] Work Phone: ALL CBC WITH AUTO DIFFon BASOPHILS ABSOLUTE AUTO 0.0 [facility] Basophils/100 WBC (Bld) 0.5 % 0.2 - 2.0 % [facility] Eosinophils/100 WBC (Bld) 2.8 % 0.9 [...] 10.3 fL 9.5 - 13.5 fL [facility] TBH EO # 0.1 [facility] TB PLT 180 [facility] RBC 4.93 [facility] TB WBC 4.0 [facility] [...] Hospital TBH EO # 0.1 [facility] TB PLT 180 [facility] RBC 5.01 [facility] WBC 3.9 Low [facility] CHEM 7 (LYTES,BUN,CREA,GLUC) on 09-11-2023 Anion gap [Moles/Vol] 13 mmol/L 7 - 17 mmol/L [facility] Chloride [Moles/Vol] 111 mmol/L High 98 - 10 8 mmol/L [facility] CO2 [Moles/Vol] 20 mmol/L Low 21 - 31 mmol/L [facility] Creatinine [Mass/Vol] 1.13 mg/dL 0.70 - 1.30 mg/dL [facility] eGFR, CKD-EPI, Male 78 - PINF [facility] Glucose [Mass/Vol] 109 mg/dL High 70 - 99 mg/dL [facility] Interpretation and review of laboratory results Abnormal [facility] Osmolality Calc [Osmolality] 295 [facility] Potassium [Moles/Vol] 4.3 mmol/L 3.5 - 5.0 mmol/L [facility] Sodium [Moles/Vol] 140 mmol/L 135 - 145 mmol/L [facility] Urea nitrogen [Mass/Vol] 16 mg/dL 7 - 25 mg/dL [facility] Urea nitrogen/Creatinine [Mass ratio] 14 mg/mg [facility] Anion gap [Moles/Vol] 13 mmol/L Normal 7-17 [facility] Comment on above: Performed By: #### C A, CHM7, HFP, IPB, MGO #### [facility] (DEFAULT) [address] [place] [address] 19525 Chloride [Moles/Vol] 111 mmol/L High 98-108 [facility] Comment on above: Performed By: #### C A, CHM7, HFP, IPB, MGO #### [facility] (DEFAULT) [address] [place] [address] 93789 CO2 [Moles/Vol] 20 mmol/L Low 21-31 [facility] Comment on above: Performed By: #### C A, CHM7, HFP, IPB, MGO #### [facility] (DEFAULT) [address] [place] [address] 70851 Creatinine [Mass/Vol] 1.13 mg/dL Normal 0.70-1.30 [facility] Comment on above: Performed By: #### C A, CHM7, HFP, IPB, MGO #### [facility] (DEFAULT) [address] [place] [address] 39323 GFR/1.73 sq M.predicted among non-blacks MDRD (S/P/Bld) [Vol rate/Area] 78 mL/min/{1.73_m2} Normal >=60 [facility] Comment on above: Result Comment: Repo rted eGFR is based on the CKD-EPI 2020 equation using creatinine, age, and sex. Performed By: #### C A, CHM7, HFP, IPB, MGO #### [facility] (DEFAULT) [address] [place] [address] 65261 Glucose [Mass/Vol] 109 mg/dL High 70-99 [facility] Comment on above: Performed By: #### C A, CHM7, HFP, IPB, MGO #### [facility] (DEFAULT) [address] [place] [address] 35440 Osmolality [Osmolality] 295 mosm/kg Normal 278-305 [facility] Comment on above: Performed By: #### C A, CHM7, HFP, IPB, MGO #### [facility] (DEFAULT) [address] [place] [address] 71746 Potassium [Moles/Vol] 4.3 mmol/L Normal 3.5-5.0 [facility] Comment on above: Performed By: #### C Tray, CHM7, HFP, IPB, MGO #### [facility] (DEFAULT) [address] [place] [address] 13466 Sodium [Moles/Vol] 140 mmol/L Normal 135-145 [facility] Comment on above: Performed By: #### C A, CHM7, HFP, IPB, MGO #### [facility] (DEFAULT) [address] [place] [address] 63102 Urea nitrogen [Mass/Vol] 16 mg/dL Normal 7-25 [facility] Comment on above: Performed By: #### C A, CHM7, HFP, IPB, MGO #### [facility] (DEFAULT) [address] [place] [address] Urea nitrogen/Creatinine [Mass ratio] 14 mg/mg Normal [facility] Comment on above: Performed By: #### C A, CHM7, HFP, IPB, MGO #### [facility] (DEFAULT) [address] [place] [address] GLUCOSE POCon 09-11-2023 Glucose [Mass/Vol] 108 mg/dL High 70 - 99 mg/dL [facility] Interpretation and review of laboratory results Abnormal [facility] POC Sample Type CAPBL [facility] Legionella sp identified Org specific cx Nom (Unsp spec)on 09-11-2023 Bacteria identified Cx Nom (Unsp spec) NO GROWTH DAY 7 OF 7 [facility] MAGNESIUMon 09-11-2023 Interpretation and review of laboratory results Normal [facility] Magnesium [Mass/Vol] 1.6 mg/dL 1.6 - 2 .6 mg/dL [facility] Magnesium [Mass/Vol] 1.6 mg/dL Normal 1.6-2.6 [facility] Comment on above: Performed By: #### C A, CHM7, HFP, IPB, MGO #### [facility] (DEFAULT) [address] [place] [address] No Panel Informationon 09-11 [facility] TACROLIMUS LEVEL, TROUGH (TN E DRUG LEVEL)on 09-11-2023 Interpretation and review of laboratory results Normal [facility] Tacrolimus (Bld) [Mass/Vol] 11.5 ng/mL [facility] Tacrolimus, Trough 11.5 ng/mL Normal [facility] Transplant: 4.0-12.0, Therapeutic: 5.0-15.0 [facility] Comment on above: Order Comment: Pleas e draw at specified interval PRIOR to dose. Do not hold dose to wait for level. Specimens batched twice per day, (M-F) and once per day weekendsMethod performed is a chemiluminescent microparticle immunoasssay on the [employer] Clinical i2000.The range is based on experience at [facility] and users should be aware that target concentrations vary widely depending on concomitant therapy, time post-transplant, and desired degree of immunosuppression. Performed By: #### C NATHANIEL Feliz, TAVO, IPB, MGO #### [facility] (DEFAULT) [address] [place] [address] CBC,PLATELETSon 09-10-2023 Erythrocyte distribution width (RBC) [Ratio] 13.9 % 10.9 - 14.3 % [facility] Hematocrit (Bld) [Volume fraction] 40.0 % 39.6 - 48.8 % [facility] Hemoglobin (Bld) [Mass/Vol] 12.7 g/dL Low 13.4 - 16.8 g/dL [facility] Interpretation and review of laboratory results Abnormal [facility] MCH (RBC) [Entitic mass] 27.3 pg 26.1 - 33.3 pg [facility] MCHC (RBC) [Mass/Vol] 31.8 g/dL Low 31.9 - 36.5 g/dL [facility] MCV (RBC) [Entitic vol] 86.0 fL 79.0 - 94.5 fL [facility] Platelet mean volume (Bld) [Entitic vol] 9.5 fL 8.7 - 12.3 fL [facility] Platelets (Bld) [#/Vol] 225 10*3/uL 146 - 337 K/uL [facility] RBC (Bld) [#/Vol] 4.65 10*6/uL [facility] WBC (Bld) [#/Vol] 6.52 10*3/uL 3.73 - 10. 10 K/uL [facility] Hematocrit (Bld) [Volume fraction] 40.0 % Normal 39.6-48.8 [facility] Comment on above: Performed By: #### NATHANIEL Willis, TAVO, IPB, MGO #### [facility] (DEFAULT) [address] [place] [address] Hemoglobin (Bld) [Mass/Vol] 12.7 g/dL Low 13.4-16.8 [facility] Comment on above: Performed By: #### C A, CHM7, HFP, IPB, MGO #### [facility] (DEFAULT) [address] [place] [address] MCV (RBC) [Entitic vol] 86.0 fL Normal 79.0-94.5 [facility] Comment on above: Performed By: #### C A, CHM7, HFP, IPB, MGO #### [facility] (DEFAULT) [address] [place] [address] Mean Cell Hgb 27.3 pg Normal 26.1-33.3 [facility] Comment on above: Performed By: #### C A, CHM7, HFP, IPB, MGO #### [facility] (DEFAULT) [address] [place] [address] Mean Cell Hgb Conc 31.8 g/dL Low 31.9-36.5 [facility] Comment on above: Performed By: #### C A, CHM7, HFP, IPB, MGO #### [facility] (DEFAULT) [address] [place] [address] Platelet mean volume (Bld) [Entitic vol] 9.5 fL Normal 8.7-12.3 [facility] Comment on above: Performed By: #### C A, CHM7, HFP, IPB, MGO #### [facility] (DEFAULT) [address] [place] [address] Platelets (Bld) [#/Vol] 225 10*3/uL Normal 146-337 [facility] Comment on above: Performed By: #### C A, CHM7, HFP, IPB, MGO #### [facility] (DEFAULT) [address] [place] [address] RBC (Bld) [#/Vol] 4.65 10*6/uL Normal 4.38-5.83 [facility] Comment on above: Performed By: #### C A, CHM7, HFP, IPB, MGO #### [facility] (DEFAULT) [address] [place] [address] RBC Distribution 13.9 % Normal 10.9-14.3 [facility] Comment on above: Performed By: #### C A, CHM7, HFP, IPB, MGO #### [facility] (DEFAULT) [address] [place] [address] WBC (Bld) [#/Vol] 6.52 10*3/uL Normal 3.73-10.10 [facility] Comment on above: Performed By: #### C A, CHM7, HFP, IPB, MGO #### [facility] (DEFAULT) [address] [place] [address] CHEM 7 (LYTES,BUN,CREA,GLUC) on 09-10-2023 Anion gap [Moles/Vol] 13 mmol/L 7 - 17 mmol/L [facility] Chloride [Moles/Vol] 111 mmol/L High 98 - 10 8 mmol/L [facility] CO2 [Moles/Vol] 20 mmol/L Low 21 - 31 mmol/L [facility] Creatinine [Mass/Vol] 1.27 mg/dL 0.70 - 1.30 mg/dL [facility] eGFR, CKD-EPI, Male 68 - [facility]F [facility] Glucose [Mass/Vol] 100 mg/dL High 70 - 99 mg/dL [facility] Osmolality Calc [Osmolality] 293 [facility] Potassium [Moles/Vol] 4.4 mmol/L 3.5 - 5.0 mmol/L [facility] Sodium [Moles/Vol] 140 mmol/L 135 - 145 mmol/L [facility] Urea nitrogen [Mass/Vol] 12 mg/dL 7 - 25 mg/dL [facility] Urea nitrogen/Creatinine [Mass ratio] 9 mg/mg [facility] Anion gap [Moles/Vol] 13 mmol/L Normal 7-17 [facility] Comment on above: Performed By: #### C HM7, HFP, MGO #### [facility] (DEFAULT) [address] [place] [address] Chloride [Moles/Vol] 111 mmol/L High 98-108 [facility] Comment on above: Performed By: #### C HM7, HFP, MGO #### [facility] (DEFAULT) [address] [place] [address] CO2 [Moles/Vol] 20 mmol/L Low 21-31 [facility] Comment on above: Performed By: #### C HM7, HFP, MGO #### [facility] (DEFAULT) [address] [place] [address] Creatinine [Mass/Vol] 1.27 mg/dL Normal 0.70-1.30 [facility] Comment on above: Performed By: #### C HM7, HFP, MGO #### [facility] (DEFAULT) [address] [place] [address] GFR/1.73 sq M.predicted among non-blacks MDRD (S/P/Bld) [Vol rate/Area] 68 mL/min/{1.73_m2} Normal >=60 [facility] Comment on above: Result Comment: Repo rted eGFR is based on the CKD-EPI 2020 equation using creatinine, age, and sex. Performed By: #### C HM7, HFP, MGO #### [facility] (DEFAULT) [address] [place] [address] Glucose [Mass/Vol] 100 mg/dL High 70-99 [facility] Comment on above: Performed By: #### C HM7, HFP, MGO #### [facility] (DEFAULT) [address] [place] [address] Osmolality [Osmolality] 293 mosm/kg Normal 278-305 [facility] Comment on above: Performed By: #### C HM7, HFP, MGO #### [facility] (DEFAULT) [address] [place] [address] Potassium [Moles/Vol] 4.4 mmol/L Normal 3.5-5.0 [facility] Comment on above: Performed By: #### C JASMYNE, TAVO, MGO #### [facility] (DEFAULT) [address] [place] [address] Sodium [Moles/Vol] 140 mmol/L Normal 135-145 [facility] Comment on above: Performed By: #### Chinedu HMJessica, HFP, MGO #### [facility] (DEFAULT) [address] [place] [address] Urea nitrogen [Mass/Vol] 12 mg/dL Normal 7-25 [facility] Comment on above: Performed By: #### Chinedu MEDLEY, HFP, MGO #### [facility] (DEFAULT) [address] [place] [address] Urea nitrogen/Creatinine [Mass ratio] 9 mg/mg Normal [facility] Comment on above: Performed By: #### Chinedu HMJessica, HFP, MGO #### [facility] (DEFAULT) [address] [place] [address] HEPATIC FUNCTION PANELon Albumin [Mass/Vol] 3.3 g/dL Low 3.5 - 5.0 g/dL [facility] ALP [Catalytic activity/Vol] 143 U/L High 32 - 126 U/L [facility] ALT [Catalytic activity/Vol] 28 U/L 10 - 52 U/L [facility] AST [Catalytic activity/Vol] 29 U/L 10 - 39 U/L [facility] Bilirubin [Mass/Vol] 0.9 mg/dL [facility]/dL [facility] Bilirubin.direct [Mass/Vol] 0.2 mg/dL NINF - 0.3 mg/dL [facility] Protein [Mass/Vol] 6.8 g/dL 6.4 - 8.3 g/dL [facility] Albumin [Mass/Vol] 3.3 g/dL Low 3.5-5.0 [facility] Comment on above: Performed By: #### C HM7, HFP, MGO #### [facility] (DEFAULT) [address] [place] [address] ALP [Catalytic activity/Vol] 143 U/L High 32-126 [facility] Comment on above: Performed By: #### C HM7, HFP, MGO #### [facility] (DEFAULT) [address] [place] [address]81 ALT [Catalytic activity/Vol] 28 U/L Normal 10-52 [facility] Comment on above: Performed By: #### C HM7, HFP, MGO #### [facility] (DEFAULT) [address] [place] [address]97 AST [Catalytic activity/Vol] 29 U/L Normal 10-39 [facility] Comment on above: Performed By: #### Chinedu HM7, HFP, MGO #### [facility] (DEFAULT) [address] [place] [address] Bilirubin [Mass/Vol] 0.9 mg/dL Normal <1.5 [facility] Comment on above: Performed By: #### C HM7, HFP, MGO #### [facility] (DEFAULT) [address] [place] [address] Bilirubin.indirect [Mass/Vol] 0.2 mg/dL Normal <0.3 [facility] Comment on above: Performed By: #### Chinedu HM7, HFP, MGO #### [facility] (DEFAULT) [address] [place] [address] Protein [Mass/Vol] 6.8 g/dL Normal 6.4-8.3 [facility] Comment on above: Performed By: #### C HM7, HFP, MGO #### [facility] (DEFAULT) [address] [place] [address] MAGNESIUMon 09-10-2023 Interpretation and review of laboratory results Normal [facility] Magnesium [Mass/Vol] 1.9 mg/dL 1.6 - 2 .6 mg/dL [facility] Magnesium [Mass/Vol] 1.9 mg/dL Normal 1.6-2.6 [facility] Comment on above: Performed By: #### C TAVO MEDLEY MGO #### [facility] (DEFAULT) [address] [address] No Panel Informationon 09-10 Interpretation and review of laboratory results Abnormal [facility] TACROLIMUS LEVEL, TROUGH (TN E DRUG LEVEL)Ordered By: Jimy Castillo on 09-10-2023 Interpretation and review of laboratory results Normal [facility] Tacrolimus (Bld) [Mass/Vol] 11.8 ng/mL [facility] TACROLIMUS LEVEL, TROUGH (TN E DRUG LEVEL)on 09-10-2023 Tacrolimus, Trough 11.8 ng/mL Normal [facility] ow Transplant: 4.0-12.0, Therapeutic: 5.0-15.0 [facility] Comment on above: Order Comment: Pleas e draw at specified interval PRIOR to dose. Do not hold dose to wait for level. Specimens batched twice per day, (M-F) and once per day weekendsMethod performed is a chemiluminescent microparticle immunoasssay on the [employer] i2000.The range is based on experience at [facility] and users should be aware that target concentrations vary widely depending on concomitant therapy, time post-transplant, and desired degree of immunosuppression. Performed By: #### C TAVO MEDLEY MGO #### [facility] (DEFAULT) [address] [address] CHEM 7 (LYTES,BUN,CREA,GLUC) on 09-09-2023 Anion gap [Moles/Vol] 14 mmol/L 7 - 17 mmol/L [facility] Chloride [Moles/Vol] 113 mmol/L High 98 - 10 8 mmol/L [facility] CO2 [Moles/Vol] 18 mmol/L Low 21 - 31 mmol/L [facility] Creatinine [Mass/Vol] 1.03 mg/dL 0.70 - 1.30 mg/dL [facility] eGFR, CKD-EPI, Male 88 - PINF [facility] Glucose [Mass/Vol] 106 mg/dL High 70 - 99 mg/dL [facility] Interpretation and review of laboratory results Abnormal [facility] Osmolality Calc [Osmolality] 294 [facility] Potassium [Moles/Vol] 4.0 mmol/L 3.5 - 5.0 mmol/L [facility] Sodium [Moles/Vol] 141 mmol/L 135 - 145 mmol/L [facility] Urea nitrogen [Mass/Vol] 10 mg/dL 7 - 25 mg/dL [facility] Urea nitrogen/Creatinine [Mass ratio] 10 mg/mg [facility] MAGNESIUMon 09-09-2023 Magnesium [Mass/Vol] 1.6 mg/dL 1.6 - 2 .6 mg/dL [facility] No Panel Informationon 09-09 Interpretation and review of laboratory results Normal [facility] PHOSPHATE, INORGANICon 09-09 Phosphate [Mass/Vol] 3.8 mg/dL 2.2 - 4 .6 mg/dL [facility] TACROLIMUS LEVEL, TROUGH (TN E DRUG LEVEL)on 09-09-2023 Interpretation and review of laboratory results Normal [facility] Tacrolimus (Bld) [Mass/Vol] 9.2 ng/mL [facility] CBC,PLATELETSon 09-08-2023 Erythrocyte distribution width (RBC) [Ratio] 13.6 % 10.9 - 14.3 % [facility] Hematocrit (Bld) [Volume fraction] 36.1 % Low 39.6 - 48.8 % [facility] Hemoglobin (Bld) [Mass/Vol] 11.6 g/dL Low 13.4 - 16.8 g/dL [facility] Interpretation and review of laboratory results Abnormal [facility] MCH (RBC) [Entitic mass] 27.4 pg 26.1 - 33.3 pg [facility] MCHC (RBC) [Mass/Vol] 32.1 g/dL 31.9 - 36.5 g/dL [facility] MCV (RBC) [Entitic vol] 85.1 fL 79.0 - 94.5 fL [facility] Platelet mean volume (Bld) [Entitic vol] 9.5 fL 8.7 - 12.3 fL [facility] Platelets (Bld) [#/Vol] 182 10*3/uL 146 - 337 K/uL [facility] RBC (Bld) [#/Vol] 4.24 10*6/uL Low [facility] WBC (Bld) [#/Vol] 4.59 10*3/uL 3.73 - 10. 10 K/uL [facility] CHEM 7 (LYTES,BUN,CREA,GLUC) on 09-08-2023 Anion gap [Moles/Vol] 12 mmol/L 7 - 17 mmol/L [facility] Chloride [Moles/Vol] 113 mmol/L High 98 - 10 8 mmol/L [facility] CO2 [Moles/Vol] 21 mmol/L 21 - 31 mmol/L [facility] Creatinine [Mass/Vol] 1.14 mg/dL 0.70 - 1.30 mg/dL [facility] eGFR, CKD-EPI, Male 78 - PINF [facility] Glucose [Mass/Vol] 107 mg/dL High 70 - 99 mg/dL [facility] Osmolality Calc [Osmolality] 296 [facility] Potassium [Moles/Vol] 3.9 mmol/L 3.5 - 5.0 mmol/L [facility] Sodium [Moles/Vol] 142 mmol/L 135 - 145 mmol/L [facility] Urea nitrogen [Mass/Vol] 11 mg/dL 7 - 25 mg/dL [facility] Urea nitrogen/Creatinine [Mass ratio] 10 mg/mg [facility] HEPATIC FUNCTION PANELon Albumin [Mass/Vol] 2.9 g/dL Low 3.5 - 5.0 g/dL [facility] ALP [Catalytic activity/Vol] 133 U/L High 32 - 126 U/L [facility] ALT [Catalytic activity/Vol] 23 U/L 10 - 52 U/L [facility] AST [Catalytic activity/Vol] 23 U/L 10 - 39 U/L [facility] Bilirubin [Mass/Vol] 0.8 mg/dL NINF - 1.5 mg/dL [facility] Bilirubin.direct [Mass/Vol] 0.2 mg/dL NINF - 0.3 mg/dL [facility] Protein [Mass/Vol] 5.9 g/dL Low 6.4 - 8.3 g/dL [facility] MAGNESIUMon 09-08-2023 Interpretation and review of laboratory results Normal [facility] Magnesium [Mass/Vol] 1.8 mg/dL 1.6 - 2 .6 mg/dL [facility] No Panel Informationon 09-08 Interpretation and review of laboratory results Abnormal [facility] PHOSPHATE, INORGANICon 09-08 Interpretation and review of laboratory results Normal [facility] Phosphate [Mass/Vol] 4.1 mg/dL 2.2 - 4 .6 mg/dL [facility] TACROLIMUS LEVEL, TROUGH (TN E DRUG LEVEL)on 09-08-2023 Interpretation and review of laboratory results Normal [facility] Tacrolimus (Bld) [Mass/Vol] 8.5 ng/mL [facility] CBC,PLATELETSon 09-07-2023 Erythrocyte distribution width (RBC) [Ratio] 13.5 % 10.9 - 14.3 % [facility] Hematocrit (Bld) [Volume fraction] 37.1 % Low 39.6 - 48.8 % [facility] Hemoglobin (Bld) [Mass/Vol] 11.9 g/dL Low 13.4 - 16.8 g/dL [facility] Interpretation and review of laboratory results Abnormal [facility] MCH (RBC) [Entitic mass] 27.7 pg 26.1 - 33.3 pg [facility] MCHC (RBC) [Mass/Vol] 32.1 g/dL 31.9 - 36.5 g/dL [facility] MCV (RBC) [Entitic vol] 86.5 fL 79.0 - 94.5 fL [facility] Platelet mean volume (Bld) [Entitic vol] 9.6 fL 8.7 - 12.3 fL [facility] Platelets (Bld) [#/Vol] 176 10*3/uL 146 - 337 K/uL [facility] RBC (Bld) [#/Vol] 4.29 10*6/uL Low [facility] WBC (Bld) [#/Vol] 4.10 10*3/uL 3.73 - 10. 10 K/uL [facility] CHEM 7 (LYTES,BUN,CREA,GLUC) on 09-07-2023 Anion gap [Moles/Vol] 13 mmol/L 7 - 17 mmol/L [facility] Chloride [Moles/Vol] 113 mmol/L High 98 - 10 8 mmol/L [facility] CO2 [Moles/Vol] 19 mmol/L Low 21 - 31 mmol/L [facility] Creatinine [Mass/Vol] 1.22 mg/dL 0.70 - 1.30 mg/dL [facility] eGFR, CKD-EPI, Male 72 - PINF [facility] Glucose [Mass/Vol] 107 mg/dL High 70 - 99 mg/dL [facility] Osmolality Calc [Osmolality] 295 [facility] Potassium [Moles/Vol] 3.9 mmol/L 3.5 - 5.0 mmol/L [facility] Sodium [Moles/Vol] 141 mmol/L 135 - 145 mmol/L [facility] Urea nitrogen [Mass/Vol] 13 mg/dL 7 - 25 mg/dL [facility] Urea nitrogen/Creatinine [Mass ratio] 11 mg/mg [facility] HEPATIC FUNCTION PANELon Albumin [Mass/Vol] 2.9 g/dL Low 3.5 - 5.0 g/dL [facility] ALP [Catalytic activity/Vol] 111 U/L 32 - 126 U/L [facility] ALT [Catalytic activity/Vol] 18 U/L 10 - 52 U/L [facility] AST [Catalytic activity/Vol] 23 U/L 10 - 39 U/L [facility] Bilirubin [Mass/Vol] 0.8 mg/dL NINF - 1.5 mg/dL [facility] Bilirubin.direct [Mass/Vol] 0.3 mg/dL High NINF - 0.3 mg/dL [facility] Protein [Mass/Vol] 6.0 g/dL Low 6.4 - 8.3 g/dL [facility] MAGNESIUMon 09-07-2023 Interpretation and review of laboratory results Normal [facility] Magnesium [Mass/Vol] 1.7 mg/dL 1.6 - 2 .6 mg/dL [facility] No Panel Informationon 09-07 Interpretation and review of laboratory results Abnormal [facility] PHOSPHATE, INORGANICon 09-07 Interpretation and review of laboratory results Normal [facility] Phosphate [Mass/Vol] 4.4 mg/dL 2.2 - 4 .6 mg/dL [facility] TACROLIMUS LEVEL, TROUGH (TN E DRUG LEVEL)Ordered By: Elizabeth Maldonado on 09-07-2023 Interpretation and review of laboratory results Normal [facility] Tacrolimus (Bld) [Mass/Vol] 7.8 ng/mL [facility] CBC,PLATELETSon 09-06-2023 Erythrocyte distribution width (RBC) [Ratio] 13.4 % 10.9 - 14.3 % [facility] Hematocrit (Bld) [Volume fraction] 38.4 % Low 39.6 - 48.8 % [facility] Hemoglobin (Bld) [Mass/Vol] 11.9 g/dL Low 13.4 - 16.8 g/dL [facility] Interpretation and review of laboratory results Abnormal [facility] MCH (RBC) [Entitic mass] 26.6 pg 26.1 - 33.3 pg [facility] MCHC (RBC) [Mass/Vol] 31.0 g/dL Low 31.9 - 36.5 g/dL [facility] MCV (RBC) [Entitic vol] 85.9 fL 79.0 - 94.5 fL [facility] Platelet mean volume (Bld) [Entitic vol] 9.7 fL 8.7 - 12.3 fL [facility] Platelets (Bld) [#/Vol] 181 10*3/uL 146 - 337 K/uL [facility] RBC (Bld) [#/Vol] 4.47 10*6/uL [facility] WBC (Bld) [#/Vol] 4.41 10*3/uL 3.73 - 10. 10 K/uL [facility] CHEM 7 (LYTES,BUN,CREA,GLUC) on 09-06-2023 Anion gap [Moles/Vol] 14 mmol/L 7 - 17 mmol/L [facility] Chloride [Moles/Vol] 109 mmol/L High 98 - 10 8 mmol/L [facility] CO2 [Moles/Vol] 19 mmol/L Low 21 - 31 mmol/L [facility] Creatinine [Mass/Vol] 1.26 mg/dL 0.70 - 1.30 mg/dL [facility] eGFR, CKD-EPI, Male 70 - PINF [facility] Glucose [Mass/Vol] 114 mg/dL High 70 - 99 mg/dL [facility] Osmolality Calc [facility]olality] [facility] Potassium [Moles/Vol] 4.1 mmol/L 3.5 - 5.0 mmol/L [facility] Sodium [Moles/Vol] 138 mmol/L 135 - 145 mmol/L [facility] Urea nitrogen [Mass/Vol] 16 mg/dL 7 - 25 mg/dL [facility] Urea nitrogen/Creatinine [Mass ratio] 13 mg/mg [facility] HEPATIC FUNCTION PANELon Albumin [Mass/Vol] 3.0 g/dL Low 3.5 - 5.0 g/dL [facility] ALP [Catalytic activity/Vol] 115 U/L 32 - 126 U/L [facility] ALT [Catalytic activity/Vol] 25 U/L 10 - 52 U/L [facility] AST [Catalytic activity/Vol] 31 U/L 10 - 39 U/L [facility] Bilirubin [Mass/Vol] 1.0 mg/dL NINF - 1.5 mg/dL [facility] Bilirubin.direct [Mass/Vol] 0.3 mg/dL High NINF - 0.3 mg/dL [facility] Protein [Mass/Vol] 6.3 g/dL Low 6.4 - 8.3 g/dL [facility] MAGNESIUMon 09-06-2023 Interpretation and review of laboratory results Normal [facility] Magnesium [Mass/Vol] 2.0 mg/dL 1.6 - 2 .6 mg/dL [facility] No Panel Informationon 09-06 Interpretation and review of laboratory results Abnormal [facility] TACROLIMUS LEVEL, TROUGH (TN E DRUG LEVEL)on 09-06-2023 Interpretation and review of laboratory results Normal [facility] Tacrolimus (Bld) [Mass/Vol] 6.7 ng/mL [facility] CBC,PLATELETSon 09-05-2023 Erythrocyte distribution width (RBC) [Ratio] 13.5 % 10.9 - 14.3 % [facility] Hematocrit (Bld) [Volume fraction] 35.6 % Low 39.6 - 48.8 % [facility] Hemoglobin (Bld) [Mass/Vol] 11.4 g/dL Low 13.4 - 16.8 g/dL [facility] Interpretation and review of laboratory results Abnormal [facility] MCH (RBC) [Entitic mass] 27.5 pg 26.1 - 33.3 pg [facility] MCHC (RBC) [Mass/Vol] 32.0 g/dL 31.9 - 36.5 g/dL [facility] MCV (RBC) [Entitic vol] 86.0 fL 79.0 - 94.5 fL [facility] Platelet mean volume (Bld) [Entitic vol] 10.0 fL 8.7 - 12.3 fL [facility] Platelets (Bld) [#/Vol] 170 10*3/uL 146 - 337 K/uL [facility] RBC (Bld) [#/Vol] 4.14 10*6/uL Low [facility] WBC (Bld) [#/Vol] 4.24 10*3/uL 3.73 - 10. 10 K/uL [facility] CHEM 7 (LYTES,BUN,CREA,GLUC) on 09-05-2023 Anion gap [Moles/Vol] 12 mmol/L 7 - 17 mmol/L [facility] Chloride [Moles/Vol] 107 mmol/L 98 - 10 8 mmol/L [facility] CO2 [Moles/Vol] 20 mmol/L Low 21 - 31 mmol/L [facility] Creatinine [Mass/Vol] 1.43 mg/dL High 0.70 - 1.30 mg/dL [facility] eGFR, CKD-EPI, Male 60 Low - PINF [facility] Glucose [Mass/Vol] 111 mg/dL High 70 - 99 mg/dL [facility] Osmolality Calc [Osmolality] 286 [facility] Potassium [Moles/Vol] 4.2 mmol/L 3.5 - 5.0 mmol/L [facility] Sodium [Moles/Vol] 135 mmol/L 135 - 145 mmol/L [facility] Urea nitrogen [Mass/Vol] 18 mg/dL 7 - 25 mg/dL [facility] Urea nitrogen/Creatinine [Mass ratio] 13 mg/mg [facility] CONTINUOUS CARDIAC MONITORIN G STRIPon 09-05-2023 [facility] HEPATIC FUNCTION PANELon Albumin [Mass/Vol] 2.8 g/dL Low 3.5 - 5.0 g/dL [facility] ALP [Catalytic activity/Vol] 103 U/L 32 - 126 U/L [facility] ALT [Catalytic activity/Vol] 26 U/L 10 - 52 U/L [facility] AST [Catalytic activity/Vol] 38 U/L 10 - 39 U/L [facility] Bilirubin [Mass/Vol] 0.9 mg/dL NINF - 1.5 mg/dL [facility] Bilirubin.direct [Mass/Vol] 0.1 mg/dL NINF - 0.3 mg/dL [facility] Protein [Mass/Vol] 6.1 g/dL Low 6.4 - 8.3 g/dL [facility] HISTOPLASMA ANTIGEN, FLUIDon 09-05-2023 FH SOURCE BAL RML [facility] Histo FLD interpretation Negative [facility] Histoplasma Antigen, FLUID Not detected ng/mL [facility] HISTOPLASMA CAPSULATUM/BLAST OMYCES SPECIES,PCR FLUIDon 09-05-2023 HISTO/BLASTO RESULT Negative Not Applicable [facility] Specimen source Nom (Unsp spec) BAL RML [facility] IMMUNOPHENOTYPING, TISSUE/FL UIDon 09-05-2023 BKR DX CODE Use Ordering [facility] Flow Interpretation See Comment [facility] Flow Interpreted by: Yossi Perla MD, PhD [facility] MAGNESIUMon 09-05-2023 Interpretation and review of laboratory results Normal [facility] Magnesium [Mass/Vol] 1.7 mg/dL 1.6 - 2 .6 mg/dL [facility] No Panel Informationon 09-05 Interpretation and review of laboratory results Abnormal [facility] TACROLIMUS LEVEL, TROUGH (TN E DRUG LEVEL)Ordered By: Raymundo Mehta on 09-05-2023 Interpretation and review of laboratory results Normal [facility] Tacrolimus (Bld) [Mass/Vol] 5.3 ng/mL [facility] ARTERIAL BLOOD GAS (FULL GOSS EL)on 09-04-2023 Base excess Calc (Bld) [Moles/Vol] -1.2000 mmol/L -3.0 - 3.0 mmol/L [facility] Calcium.ionized (Bld) [Mass/Vol] 4.79 mg/dL 4.60 - 5.30 mg/dL [facility] Carboxyhemoglobin (Bld) [Mass fraction] 0.7 % NINF - 1.5 % [facility] CO2 (Bld) [Partial pressure] 30 mm[Hg] Low [facility] Glucose [Mass/Vol] 159 mg/dL High 70 - 99 mg/dL [facility] HCO3 (Bld) [Moles/Vol] 22 mmol/L 22 - 28 mmol/L [facility] Hematocrit (Bld) [Volume fraction] 38.0 % Low 40.2 - 50.4 % [facility] Hemoglobin (Bld) [Mass/Vol] 12.6 g/dL Low 13.4 - 16.8 g/dL [facility] Interpretation and review of laboratory results Abnormal [facility] Lactate [Moles/Vol] 2.0 mmol/L High 0.5 - 1. 6 mmol/L [facility] Methemoglobin (Bld) [Mass fraction] 0.0 % NINF - 1.5 % [facility] Oxygen (Bld) [Partial pressure] 62 mm[Hg] Low [facility] Oxygen saturation in Blood 92 % Low 94 - 98 % [facility] Oxyhemoglobin 91 % Low 94 - 98 % [facility] pH (Bld) 7.48 [pH] High 7.35 - 7.45 [facility] Potassium [Moles/Vol] 4.2 mmol/L 3.5 - 5.0 mmol/L [facility] Sodium [Moles/Vol] 130 mmol/L Low 135 - 145 mmol/L [facility] Specimen source Nom (Unsp spec) Arterial [facility] Bacteria identified Respirat ory culture Nom (Unsp spec)on 09-04-2023 Bacteria identified Cx Nom (Unsp spec) NO GROWTH DAY 2 OF 2 [facility] Microscopic observation Other stain Nom (Unsp spec) Cytocentrifuge preparation [facility] Microscopic observation Other stain Nom (Unsp spec) Neutrophils, Rare [facility] Microscopic observation Other stain Nom (Unsp spec) Red Blood Cells Present [facility] Microscopic observation Other stain Nom (Unsp spec) No organisms seen [facility] Bacteria identified Respirat ory culture Nom (Unsp spec)Ordered By: Jose Salgado on 09-04-2023 Bacteria identified Cx Nom (Unsp spec) NO GROWTH DAY 2 OF 2 [facility] Microscopic observation Other stain Nom (Unsp spec) Cytocentrifuge preparation [facility] Microscopic observation Other stain Nom (Unsp spec) Neutrophils, Moderate [facility] Microscopic observation Other stain Nom (Unsp spec) Red Blood Cells Present [facility] Microscopic observation Other stain Nom (Unsp spec) No organisms seen [facility] CBC,PLATELETSon 09-04-2023 Erythrocyte distribution width (RBC) [Ratio] 13.2 % 10.9 - 14.3 % [facility] Hematocrit (Bld) [Volume fraction] 38.7 % Low 39.6 - 48.8 % [facility] Hemoglobin (Bld) [Mass/Vol] 12.3 g/dL Low 13.4 - 16.8 g/dL [facility] Interpretation and review of laboratory results Abnormal [facility] MCH (RBC) [Entitic mass] 27.9 pg 26.1 - 33.3 pg [facility] MCHC (RBC) [Mass/Vol] 31.8 g/dL Low 31.9 - 36.5 g/dL [facility] MCV (RBC) [Entitic vol] 87.8 fL 79.0 - 94.5 fL [facility] Platelet mean volume (Bld) [Entitic vol] 9.8 fL 8.7 - 12.3 fL [facility] Platelets (Bld) [#/Vol] 173 10*3/uL 146 - 337 K/uL [facility] RBC (Bld) [#/Vol] 4.41 10*6/uL [facility] WBC (Bld) [#/Vol] 4.57 10*3/uL 3.73 - 10. 10 K/uL [facility] CHEM 7 (LYTES,BUN,CREA,GLUC) on 09-04-2023 Anion gap [Moles/Vol] 16 mmol/L 7 - 17 mmol/L [facility] Chloride [Moles/Vol] 104 mmol/L 98 - 10 8 mmol/L [facility] CO2 [Moles/Vol] 18 mmol/L Low 21 - 31 mmol/L [facility] Creatinine [Mass/Vol] 1.22 mg/dL 0.70 - 1.30 mg/dL [facility] eGFR, CKD-EPI, Male 72 - PINF [facility] Glucose [Mass/Vol] 124 mg/dL High 70 - 99 mg/dL [facility] Osmolality Calc [Osmolality] 284 [facility] Potassium [Moles/Vol] 3.9 mmol/L 3.5 - 5.0 mmol/L [facility] Sodium [Moles/Vol] 134 mmol/L Low 135 - 145 mmol/L [facility] Urea nitrogen [Mass/Vol] 15 mg/dL 7 - 25 mg/dL [facility] Urea nitrogen/Creatinine [Mass ratio] 12 mg/mg [facility] CMV PCR,FLUIDS,URINE,EYE ETC on 09-04-2023 Specimen source Nom (Unsp spec) BAL LLL [facility] Specimen source Nom (Unsp spec) BAL RML [facility] HEPATIC FUNCTION PANELon Albumin [Mass/Vol] 3.0 g/dL Low 3.5 - 5.0 g/dL [facility] ALP [Catalytic activity/Vol] 112 U/L 32 - 126 U/L [facility] ALT [Catalytic activity/Vol] 22 U/L 10 - 52 U/L [facility] AST [Catalytic activity/Vol] 30 U/L 10 - 39 U/L [facility] Bilirubin [Mass/Vol] 1.2 mg/dL NINF - 1.5 mg/dL [facility] Bilirubin.direct [Mass/Vol] 0.4 mg/dL High NINF - 0.3 mg/dL [facility] Protein [Mass/Vol] 6.4 g/dL 6.4 - 8.3 g/dL [facility] LEGIONELLA PCRon 09-04-2023 Legionella sp rRNA Probe Ql (Unsp spec) Negative Not Applicable [facility] Specimen source Nom (Unsp spec) BAL RML [facility] Laboratory - Microbiology an d Antimicrobial susceptibilityon 09-04-2023 CMV DNA ESTELITA+probe Ql (Unsp spec) Negative Negative [facility] MAGNESIUMon 09-04-2023 Magnesium [Mass/Vol] 1.4 mg/dL Low 1.6 - 2 .6 mg/dL [facility] No Panel Informationon 09-04 Annotation comment [Interpretation] Narrative DNR [facility] PN Report Status DNR [facility] Pneumocystis jiroveci,PCR result Negative Not Applicable [facility] Interpretation and review of laboratory results Abnormal [facility] PNEUMOCYSTIS JIROVECI,PCRon 09-04-2023 Specimen source Nom (Unsp spec) BAL LLL [facility] Specimen source Nom (Unsp spec) BAL RML [facility] Portable XR Chest Viewson RADIOLOGY RADIOLOGY [facility] Radiology Study observation (narrative) [facility] Portable XR Chest ViewsOrder ed By: Joanie Nugent on 09-04-2023 [facility] Work Phone: TACROLIMUS LEVEL, TROUGH (TN E DRUG LEVEL)on 09-04-2023 Interpretation and review of laboratory results Abnormal [facility] Tacrolimus (Bld) [Mass/Vol] 3.6 ng/mL Low [facility] ASPERGILLUS ANTIGEN, BALon 1 Galactomannan Ag IA Qn (Unsp spec) <0.500 NINF [facility] Galactomannan Ag IA Qn (Unsp spec) <0.500 [facility] BAL CONSULTOrdered By: Noa Peralta on 09-03-2023 ALVEOLAR MACROPHAGES 32 % [facility] Work Phone: Bal comments Correlation with microbiology stains and cultures is recommended. [facility] Work Phone: Bal Diff Quik Stain Quality Check Acceptable [facility] Work Phone: BKR BAL INTERPRETATION Cellular specimen comprised of alveolar macrophages and small lymphocytes. No definitive microorganisms are observed. Moderate degenerative changes. [facility] Work Phone: BKR DX CODE Use Ordering [facility] Work Phone: Eosinophils Patterson stain Ql (Unsp spec) 0 % [facility] Work Phone: Lymphocytes/100 WBC (Bld) 57 % [facility] Work Phone: Neutrophils/100 WBC Manual cnt (Bronch spec) 11 % [facility] Work Phone: Pathologist review Jame (Unsp spec) [Interp] Leonardo Peralta MD [facility] Work Phone: [facility] Work Phone: BAL CONSULTon 09-03-2023 ALVEOLAR MACROPHAGES 33 % [facility] Bal comments Correlation with microbiology stains and cultures is recommended. Correlation with viral studies is recommended. [facility] Bal Diff Quik Stain Quality Check Acceptable [facility] BKR BAL INTERPRETATION Cellular specimen comprised of alveolar macrophages and small lymphocytes. No definitive microorganisms are observed. Rare degenerating cells with changes suggestive of viral cytopathic effect are noted. Moderate degenerative changes. [facility] BKR DX CODE Use Ordering [facility] Eosinophils Patterson stain Ql (Unsp spec) 0 % [facility] Lymphocytes/100 WBC (Bld) 49 % [facility] Neutrophils/100 WBC Manual cnt (Bronch spec) 18 % [facility] Pathologist review Jame (Unsp spec) [Interp] Leonardo Peralta MD [facility] BRONCHOSCOPYon 09-03-2023 LAB, [facility] CBC,PLATELETSon 09-03-2023 Erythrocyte distribution width (RBC) [Ratio] 13.4 % 10.9 - 14.3 % [facility] Hematocrit (Bld) [Volume fraction] 39.6 % 39.6 - 48.8 % [facility] Hemoglobin (Bld) [Mass/Vol] 12.8 g/dL Low 13.4 - 16.8 g/dL [facility] Interpretation and review of laboratory results Abnormal [facility] MCH (RBC) [Entitic mass] 27.8 pg 26.1 - 33.3 pg [facility] MCHC (RBC) [Mass/Vol] 32.3 g/dL 31.9 - 36.5 g/dL [facility] MCV (RBC) [Entitic vol] 85.9 fL 79.0 - 94.5 fL [facility] Platelet mean volume (Bld) [Entitic vol] 9.4 fL 8.7 - 12.3 fL [facility] Platelets (Bld) [#/Vol] 222 10*3/uL 146 - 337 K/uL [facility] RBC (Bld) [#/Vol] 4.61 10*6/uL [facility] WBC (Bld) [#/Vol] 4.36 10*3/uL 3.73 - 10. 10 K/uL [facility] CHEM 7 (LYTES,BUN,CREA,GLUC) on 09-03-2023 Anion gap [Moles/Vol] 12 mmol/L 7 - 17 mmol/L [facility] Chloride [Moles/Vol] 104 mmol/L 98 - 10 8 mmol/L [facility] CO2 [Moles/Vol] 24 mmol/L 21 - 31 mmol/L [facility] Creatinine [Mass/Vol] 1.20 mg/dL 0.70 - 1.30 mg/dL [facility] eGFR, CKD-EPI, Male 73 - [facility] Glucose [Mass/Vol] 112 mg/dL High 70 - 99 mg/dL [facility] Osmolality Calc [Osmolality] 288 [facility] Potassium [Moles/Vol] 4.1 mmol/L 3.5 - 5.0 mmol/L [facility] Sodium [Moles/Vol] 136 mmol/L 135 - 145 mmol/L [facility] Urea nitrogen [Mass/Vol] 17 mg/dL 7 - 25 mg/dL [facility] Urea nitrogen/Creatinine [Mass ratio] 14 mg/mg [facility] CYTOLOGY, NON-GYNOrdered By: Sherice Jimenez on 09-03-2023 CYTOLOGIC DIAGNOSIS r7ngiGLzYVZtcVIyMPSnF6 vpziFmFNQlgCCjT6Bdloni MNenUI2lRV8xhHumiCPmbV HkIQHoWeZea3euz923cHHx m0pfZHLMlxganNq1o3keWB JRzT2zu1e4aG72ZKNbjG7q dGJsIDtccmVkMFxncmVlbj ZyOtv8AIB6mSrcFexwhCO6 yYLdnSH5JXhdf4WuzInqkO aeCNH0VTLxCdbiYQtjsYI6 pIEbbPwmaMBwNN7yu6ereK P7fiBrFJP7nRjfdWP0eCvc hxrgo9yliJR5bTL5ERgmvW M8VJbiPbFaW2ofWXAkkQ1y E18rI7bmARQdzSphDRosFV ZkjDK4OUQ9HEUdl6lwPYTt uVPkrEGiPgTdIJojDcq5v5 njLXOgkK95uSFrwkW3fFys UObpiUV9TB55YHzex6XlLF MlmSquRNKcfC3vRyNxOYyq dmVsbmZjbjIzXGxldmVsam KaNKczvwCfc7ZxvzYveKG5 UYzxqwPwvXC9pXejEZPxR1 N2L871PTugodNywbGkThKd ohw3PDIwvTdfgKmjuNjpmy VsXGxldmVsbmZjMjNcbGV2 LBqmRsNtZzSanCS1EMfkDy RfaKY9BQokyFTvgYJ7AApe zSG6PCt9DPc8EUejSWjwCw b1vKbdiAY3LBzdmF9xGVYp E19fIwW4s2kjtDJ2jFQ5DD cofPZ5BNmyHfYlF2exUXQe xH1mF87qT2slRYAojBigVK hwEMLiaIA4WJB1LFPzi3vf ZXZlbHRleHRcJzAxXCdiNz h1i2fbRVOamE02jDKmsyQ2 oVqfVM62WDzgh7RvKEIqbO ttPJImqV3xPuBuNOftnvDl bmZjbjIzXGxldmVsamMwXG tgqzCwx5NsgvGzdSW5BVas xnZkiDL3cMwlOWBqS5M4B7 74TRsmtwClytSoLyYvact0 XGYxfXtcbGlzdGxldmVsXG mmpeDomrWqZlZrhZP0HRus OcCeRaRmcKG2DSadZfKbxN D7GRsywCHqdLR5LHrkkZC7 ZKb6XMk7OIpjFFvxDnm3aC xaeIR4ZKxerR8hBPGuR76p KuB7a1ypwPH6yZG2TXsnsQ Y2WJufGyMsL1zqHSLzhY3q K73cX5krTRGljRcxYFewNQ RkwVC3TDE5QWJic7srSLEn pZNglTZsFvPzCOveHsz5y3 cgAHEdpT96hRGbwgF6mTrd NQ23MYzsm5LfATVptNfaFF YcjJ1xZiWyGRddkxJrlnYv bjIzXGxldmVsamMwXGxldm Gaz0SwylIqbPU7NVsmooLp fMF1eAhhENWlS2X4Y429SC ymyeMxwmOwDyHfddu0UEOe fXtcbGlzdGxldmVsXGxldm XkfkKhJxDfpUC4NZxsExXv FxUaoSO5FSfpDqHxbGL4GW cxgRVbcVG5ZWxggRP1VHx2 DWm5FTpiCHidBmf5tKgazS K0QJzvgU2vLTLzH90mQnA8 nZ81CSssqLxaoE84YJJyuQ IdrPMtrQD8ANpvgQclpN52 BQHklNLkWDcwz7MfWXBjSo O2SUO1OSWmiWafaE91JOVx lIVjB986uhRrSAulCQ78KG BhcGVydzEyMjQwXHBhcGVy dNS8BSDoUO2ptatvGJwmXT hxCKKzsjL7HRLoqBRvB8No IOEqEG4rfhnuEFD8DXyuXG PkFHY9PmRaJVZpl7Dxwmq3 VwVvmPy4z1fcJZKlJMXdpR vfd7dsUQV3THZcuMRlV6mz lJ3aOJWkMZ2inalxj7exET mxWOnmBHLeuQT4qtB4STVg zRQkT3OiyS4qFBJeRKBmmx KteAufoU7qOuxhkyLwUMMe BDNNZsGCNo5MG2wTWDdPBT 9MQVIgTEFWQUdFLCBMRUZU TZmYM6LZJQuCRaOgONQsDD WvI6lMC6kIX8qrKoakWyZs FNxqKVJgZhEyZ2IqMKVozn beUNFvEDXNCC6RFRDWZUHJ Jd0ABJU7XJLopahmtDF0CY hggeTqgWr6kKSbzUcezB4s YlxmczIyXGNmMSBObyBNYW hzD12dxpBiV3SnrUDmLSNr YYlgWZ57iHFoNZXchXEmMQ d3uO8hGLtwvVufcxRAcKTr jC8tywjkQUrdLuNysMKcRF xpMFxsczBccGFyfQ== [facility] Work Phone: Case Report [facility] Work Phone: Clinical History m5etwGZeAJFzxDOqSQRu M1 xkqgYzCUBydIYiG8Ktxxfc JFtyJZ5uSJ5izMshoQOdpC TfVDAoSqGvo6icb756dBFn g7frRWNLgfyftMl3dXjwF9 1vp7Y0TejtZ9oqFNNvGCqj LGYaXScrhQYvYKb6HWCqwD VydzEyMjQwXHBhcGVyaDE1 QUGkBA5zsibeOXbzHYibGQ UpiyC3ACPxsKTeF2DnPIPb SG0raechKQS0TZziFFNtRL D4JuXlIXZwh3Dfxwc0OzNn tKx2s4pkCBAnMNAywHkdu2 tfBOL3MIKmjZYaO7bkaO4v HHHlAW6inxqkb5dwVUlzAD ggWDMzbYC1oiQ8KMQpsTEn J4WduZ1jDNWnWZBgkfRqwN ehgH1uAwRkEXkmPpMyXoSs CRvgzEAmkdGazSSuuB5rPU Bhcn0= [facility] Work Phone: For Immediate Release to Patient's MyChart? Yes Yes [facility] Work Phone: Gross Description a0ezcVNiJHCqwWLnXASv M1 qiuoYkHKAkfBIhU6Wfxags EPzeBO4pNF2mhDuueHIhdV MbVMHcZyFtq0mmo194tCYn c2nrWZCEyjfdhKq0jLbeG6 8sf2C6WiazE25eiOXbQXO6 DYEtUMYysNZsSFAtSWI2RL TgmUEkP9feRQZjON4fixoj LPfqVQbjZPKgwFC7GDOtaI SxY8GxDOKmBUiqVNScvvf4 DvYyDg2xrTHlwThkLHpvYV JkXHBsYWluXGZzMjAgTExM IEJBTFxwYXIgMSBtbCBoYX i5OOEoqG1ifKXxprJurKZt zG4ywMcyATamKMOlECAGSB MfoCpqICMCIZKja3GhoK2q cGFyXHBhcmRccGFyXHBhcn 0= [facility] Work Phone: [facility] Work Phone: HEPATIC FUNCTION PANELon Albumin [Mass/Vol] 3.2 g/dL Low 3.5 - 5.0 g/dL [facility] ALP [Catalytic activity/Vol] 118 U/L 32 - 126 U/L [facility] ALT [Catalytic activity/Vol] 25 U/L 10 - 52 U/L [facility] AST [Catalytic activity/Vol] 32 U/L 10 - 39 U/L [facility] Bilirubin [Mass/Vol] 1.0 mg/dL NINF - 1.5 mg/dL [facility] Bilirubin.direct [Mass/Vol] 0.3 mg/dL High NINF - 0.3 mg/dL [facility] Protein [Mass/Vol] 6.5 g/dL 6.4 - 8.3 g/dL [facility] HISTOPLASMA AND BLASTOMYCES ANTIGEN, ENZYME IMMUNOASSAY, SERMon 09-03-2023 Histoplasma/Blastomyce s Ag Result Detected Critically abnormal Not Detected [facility] Histoplasma/Blastomyce s Ag Value 5.3 ng/mL [facility] Interpretation and review of laboratory results Abnormal [facility] MAGNESIUMon 09-03-2023 Interpretation and review of laboratory results Normal [facility] Magnesium [Mass/Vol] 1.6 mg/dL 1.6 - 2 .6 mg/dL [facility] No Panel Informationon 09-03 Interpretation and review of laboratory results Abnormal [facility] PARVOVIRUS (B19) DNA, PCR, B Jenise 09-03-2023 PARVOVIRUS B19 BY RAPID PCR Not detected Not Detected [facility] TN SPEC SOURCE Whole Blood [facility] Portable XR Chest Viewson RADIOLOGY RADIOLOGY [facility] Radiology Study observation (narrative) [facility] Portable XR Chest ViewsOrder ed By: Lester Grove on 09-03-2023 [facility] Work Phone: ASPERGILLUS (GALACTOMANNAN), ANTIGENon 09-02-2023 Galactomannan Ag IA Qn <0.500 NINF OS [facility] ATYPICAL BACTERIAL PNEUMONIA ,PCROrdered By: Shari Contreras on 09-02-2023 B. parapertussis DNA ESTELITA+probe Ql (Unsp spec) Not detected Not Detected [facility] B. pertussis DNA ESTELITA+probe Ql (Unsp spec) Not detected Not Detected [facility] C. pneumoniae DNA ESTELITA+probe Ql (Unsp spec) Not detected Not Detected [facility] Interpretation and review of laboratory results Normal [facility] M. pneumoniae DNA ESTELITA+probe Ql (Unsp spec) Not detected Not Detected [facility] BRONCHOSCOPYon 09-02-2023 Radiology Study observation (narrative) [facility] Bacteria identified Cx Nom ( Bld)on 09-02-2023 Bacteria identified Cx Nom (Unsp spec) NO GROWTH DAY 5 OF 5 [facility] CBC,PLATELETSon 09-02-2023 Erythrocyte distribution width (RBC) [Ratio] 13.2 % 10.9 - 14.3 % [facility] Hematocrit (Bld) [Volume fraction] 39.9 % 39.6 - 48.8 % [facility] Hemoglobin (Bld) [Mass/Vol] 12.9 g/dL Low 13.4 - 16.8 g/dL [facility] Interpretation and review of laboratory results Abnormal [facility] MCH (RBC) [Entitic mass] 27.9 pg 26.1 - 33.3 pg [facility] MCHC (RBC) [Mass/Vol] 32.3 g/dL 31.9 - 36.5 g/dL [facility] MCV (RBC) [Entitic vol] 86.4 fL 79.0 - 94.5 fL [facility] Platelet mean volume (Bld) [Entitic vol] 9.5 fL 8.7 - 12.3 fL [facility] Platelets (Bld) [#/Vol] 210 10*3/uL 146 - 337 K/uL [facility] RBC (Bld) [#/Vol] 4.62 10*6/uL [facility] WBC (Bld) [#/Vol] 4.12 10*3/uL 3.73 - 10. 10 K/uL [facility] CHEM 7 (LYTES,BUN,CREA,GLUC) on 09-02-2023 Anion gap [Moles/Vol] 13 mmol/L 7 - 17 mmol/L [facility] Chloride [Moles/Vol] 105 mmol/L 98 - 10 8 mmol/L [facility] CO2 [Moles/Vol] 22 mmol/L 21 - 31 mmol/L [facility] Creatinine [Mass/Vol] 1.25 mg/dL 0.70 - 1.30 mg/dL [facility] eGFR, CKD-EPI, Male 69 - [facility]F [facility] Glucose [Mass/Vol] 105 mg/dL High 70 - 99 mg/dL [facility] Osmolality Calc [Osmolality] 287 [facility] Potassium [Moles/Vol] 4.3 mmol/L 3.5 - 5.0 mmol/L [facility] Sodium [Moles/Vol] 136 mmol/L 135 - 145 mmol/L [facility] Urea nitrogen [Mass/Vol] 16 mg/dL 7 - 25 mg/dL [facility] Urea nitrogen/Creatinine [Mass ratio] 13 mg/mg [facility] HEPATIC FUNCTION PANELon Albumin [Mass/Vol] 3.2 g/dL Low 3.5 - 5.0 g/dL [facility] ALP [Catalytic activity/Vol] 107 U/L 32 - 126 U/L [facility] ALT [Catalytic activity/Vol] 20 U/L 10 - 52 U/L [facility] AST [Catalytic activity/Vol] 31 U/L 10 - 39 U/L [facility] Bilirubin [Mass/Vol] 1.0 mg/dL NINF - 1.5 mg/dL [facility] Bilirubin.direct [Mass/Vol] 0.3 mg/dL High NINF - 0.3 mg/dL [facility] Protein [Mass/Vol] 6.6 g/dL 6.4 - 8.3 g/dL [facility] HISTOPLASMA ANTIGEN,URINEon 09-02-2023 H. capsulatum Ag (U) [Mass/Vol] Not detected ng/mL [facility] H. capsulatum Ag IA Ql (U) Not detected Not Detected [facility] HIV 1 AND 2 ANTIBODIES/P24 A NTIGENOrdered By: Wilma Luque on 09-02-2023 HIV 1+2 Ab+HIV1 p24 Ag IA Ql Non-Reactive Non Reactive [facility] Interpretation and review of laboratory results Normal [facility] MAGNESIUMon 09-02-2023 Interpretation and review of laboratory results Normal [facility] Magnesium [Mass/Vol] 1.7 mg/dL 1.6 - 2 .6 mg/dL [facility] No Panel Informationon 09-02 Interpretation and review of laboratory results Abnormal [facility] TACROLIMUS LEVEL, TROUGH (TN E DRUG LEVEL)on 09-02-2023 Interpretation and review of laboratory results Normal [facility] [facility] Tacrolimus (Bld) [Mass/Vol] 4.2 ng/mL [facility] CBC,PLATELETSon 09-01-2023 Erythrocyte distribution width (RBC) [Ratio] 13.4 % 10.9 - 14.3 % [facility] Hematocrit (Bld) [Volume fraction] 38.9 % Low 39.6 - 48.8 % [facility] Hemoglobin (Bld) [Mass/Vol] 12.7 g/dL Low 13.4 - 16.8 g/dL [facility] Interpretation and review of laboratory results Abnormal [facility] MCH (RBC) [Entitic mass] 27.6 pg 26.1 - 33.3 pg [facility] MCHC (RBC) [Mass/Vol] 32.6 g/dL 31.9 - 36.5 g/dL [facility] MCV (RBC) [Entitic vol] 84.6 fL 79.0 - 94.5 fL [facility] Platelet mean volume (Bld) [Entitic vol] 9.4 fL 8.7 - 12.3 fL [facility] Platelets (Bld) [#/Vol] 209 10*3/uL 146 - 337 K/uL [facility] RBC (Bld) [#/Vol] 4.60 10*6/uL [facility] WBC (Bld) [#/Vol] 4.41 10*3/uL 3.73 - 10. 10 K/uL [facility] CHEM 7 (LYTES,BUN,CREA,GLUC) on 09-01-2023 Anion gap [Moles/Vol] 14 mmol/L 7 - 17 mmol/L [facility] Chloride [Moles/Vol] 103 mmol/L 98 - 10 8 mmol/L [facility] CO2 [Moles/Vol] 21 mmol/L 21 - 31 mmol/L [facility] Creatinine [Mass/Vol] 1.16 mg/dL 0.70 - 1.30 mg/dL [facility] eGFR, CKD-EPI, Male 77 - PINF [facility] Glucose [Mass/Vol] 117 mg/dL High 70 - 99 mg/dL [facility] Osmolality Calc [Osmolality] 285 [facility] Potassium [Moles/Vol] 4.2 mmol/L 3.5 - 5.0 mmol/L [facility] Sodium [Moles/Vol] 134 mmol/L Low 135 - 145 mmol/L [facility] Urea nitrogen [Mass/Vol] 18 mg/dL 7 - 25 mg/dL [facility] Urea nitrogen/Creatinine [Mass ratio] 16 mg/mg [facility] CRYPTOCOCCAL ANTIGENon 09-01 Cryptococcus sp Ag Ql (S) Negative Negative [facility] Interpretation and review of laboratory results Normal [facility] HEPATIC FUNCTION PANELon Albumin [Mass/Vol] 3.3 g/dL Low 3.5 - 5.0 g/dL [facility] ALP [Catalytic activity/Vol] 112 U/L 32 - 126 U/L [facility] ALT [Catalytic activity/Vol] 21 U/L 10 - 52 U/L [facility] AST [Catalytic activity/Vol] 29 U/L 10 - 39 U/L [facility] Bilirubin [Mass/Vol] 1.0 mg/dL NINF - 1.5 mg/dL [facility] Bilirubin.direct [Mass/Vol] 0.2 mg/dL NINF - 0.3 mg/dL [facility] Protein [Mass/Vol] 6.8 g/dL 6.4 - 8.3 g/dL [facility] L. pneumophila 1 Ag IA Ql (U )Ordered By: Carolin Miles on 09-01-2023 Interpretation and review of laboratory results Normal [facility] LEGIONELLA URINARY AGOrdered By: Carolin Miles on 09-01-2023 L. pneumophila 1 Ag IA Ql (U) Negative Negative [facility] MAGNESIUMon 09-01-2023 Interpretation and review of laboratory results Normal [facility] Magnesium [Mass/Vol] 1.6 mg/dL 1.6 - 2 .6 mg/dL [facility] No Panel Informationon 09-01 Interpretation and review of laboratory results Abnormal [facility] CBC,PLATELETSon 08-31-2023 Erythrocyte distribution width (RBC) [Ratio] 13.3 % 10.9 - 14.3 % [facility] Hematocrit (Bld) [Volume fraction] 39.4 % Low 39.6 - 48.8 % [facility] Hemoglobin (Bld) [Mass/Vol] 12.8 g/dL Low 13.4 - 16.8 g/dL [facility] Interpretation and review of laboratory results Abnormal [facility] MCH (RBC) [Entitic mass] 27.6 pg 26.1 - 33.3 pg [facility] MCHC (RBC) [Mass/Vol] 32.5 g/dL 31.9 - 36.5 g/dL [facility] MCV (RBC) [Entitic vol] 85.1 fL 79.0 - 94.5 fL [facility] Platelet mean volume (Bld) [Entitic vol] 9.6 fL 8.7 - 12.3 fL [facility] Platelets (Bld) [#/Vol] 228 10*3/uL 146 - 337 K/uL [facility] RBC (Bld) [#/Vol] 4.63 10*6/uL [facility] WBC (Bld) [#/Vol] 4.77 10*3/uL 3.73 - 10. 10 K/uL [facility] CHEM 7 (LYTES,BUN,CREA,GLUC) on 08-31-2023 Anion gap [Moles/Vol] 13 mmol/L 7 - 17 mmol/L [facility] Chloride [Moles/Vol] 102 mmol/L 98 - 10 8 mmol/L [facility] CO2 [Moles/Vol] 23 mmol/L 21 - 31 mmol/L [facility] Creatinine [Mass/Vol] 1.37 mg/dL High 0.70 - 1.30 mg/dL [facility] eGFR, CKD-EPI, [facility] 62 - [facility]F [facility] Glucose [Mass/Vol] 112 mg/dL High 70 - 99 mg/dL [facility] Osmolality Calc [Osmolality] 284 [facility] Potassium [Moles/Vol] 4.4 mmol/L 3.5 - 5.0 mmol/L [facility] Sodium [Moles/Vol] 134 mmol/L Low 135 - 145 mmol/L [facility] Urea nitrogen [Mass/Vol] 16 mg/dL 7 - 25 mg/dL [facility] Urea nitrogen/Creatinine [Mass ratio] 12 mg/mg [facility] CT Abdomen and Pelvis WO con traston 08-31-2023 RADIOLOGY RADIOLOGY [facility] Radiology Study observation (narrative) [facility] CT Abdomen and Pelvis WO con trastOrdered By: Chavez Larkin on 08-31-2023 [facility] Work Phone: CT Chest WO contraston 08-31 RADIOLOGY RADIOLOGY [facility] Radiology Study observation (narrative) [facility] CT Chest WO contrastOrdered By: Daisha Patterson on 08-31-2023 [facility] Work Phone: FERRITINon 10-02-2023 Ferritin [Mass/Vol] 409.0 ng/mL High 10.5 - 3 07.3 ng/mL [facility] Interpretation and review of laboratory results Abnormal [facility] HEPATIC FUNCTION PANELon Albumin [Mass/Vol] 3.3 g/dL Low 3.5 - 5.0 g/dL [facility] ALP [Catalytic activity/Vol] 113 U/L 32 - 126 U/L [facility] ALT [Catalytic activity/Vol] 25 U/L 10 - 52 U/L [facility] AST [Catalytic activity/Vol] 31 U/L 10 - 39 U/L [facility] Bilirubin [Mass/Vol] 1.1 mg/dL NINF - 1.5 mg/dL [facility] Bilirubin.direct [Mass/Vol] 0.3 mg/dL High NINF - 0.3 mg/dL [facility] Protein [Mass/Vol] 7.0 g/dL 6.4 - 8.3 g/dL [facility] MAGNESIUMon 08-31-2023 Interpretation and review of laboratory results Normal [facility] Magnesium [Mass/Vol] 1.7 mg/dL 1.6 - 2 .6 mg/dL [facility] No Panel Informationon 08-31 Interpretation and review of laboratory results Abnormal [facility] PROCALCITONINon 08-31-2023 Interpretation and review of laboratory results Normal [facility] Procalcitonin [Mass/Vol] 0.23 ng/mL NINF - 0.50 ng/mL [facility] TACROLIMUS LEVEL, TROUGH ([place] E DRUG LEVEL)Ordered By: Yanira Marcum on 08-31-2023 Interpretation and review of laboratory results Normal [facility] Tacrolimus (Bld) [Mass/Vol] 5.9 ng/mL [facility] URINE CULTUREOrdered By: Jorge Lozano on 08-31-2023 Bacteria identified Cx Nom (Unsp spec) No Growth [facility] DARYL AURIS SCREEN BY PCRO rdered By: Mynor Alejandro on 08-30-2023 Daryl auris Screen by PCR Not detected Not Detected [facility] Interpretation and review of laboratory results Normal [facility] CBC,PLATELETSon 08-30-2023 Erythrocyte distribution width (RBC) [Ratio] 13.3 % 10.9 - 14.3 % [facility] Hematocrit (Bld) [Volume fraction] 41.3 % 39.6 - 48.8 % [facility] Hemoglobin (Bld) [Mass/Vol] 13.2 g/dL Low 13.4 - 16.8 g/dL [facility] Interpretation and review of laboratory results Abnormal [facility] MCH (RBC) [Entitic mass] 27.3 pg 26.1 - 33.3 pg [facility] MCHC (RBC) [Mass/Vol] 32.0 g/dL 31.9 - 36.5 g/dL [facility] MCV (RBC) [Entitic vol] 85.5 fL 79.0 - 94.5 fL [facility] Platelet mean volume (Bld) [Entitic vol] 9.2 fL 8.7 - 12.3 fL [facility] Platelets (Bld) [#/Vol] 235 10*3/uL 146 - 337 K/uL [facility] RBC (Bld) [#/Vol] 4.83 10*6/uL [facility] WBC (Bld) [#/Vol] 4.96 10*3/uL 3.73 - 10. 10 K/uL [facility] CHEM 7 (LYTES,BUN,CREA,GLUC) on 08-30-2023 Anion gap [Moles/Vol] 14 mmol/L 7 - 17 mmol/L [facility] Chloride [Moles/Vol] 102 mmol/L 98 - 10 8 mmol/L [facility] CO2 [Moles/Vol] 20 mmol/L Low 21 - 31 mmol/L [facility] Creatinine [Mass/Vol] 1.56 mg/dL High 0.70 - 1.30 mg/dL [facility] eGFR, CKD-EPI, Male 54 Low - PINF [facility] Glucose [Mass/Vol] 123 mg/dL High 70 - 99 mg/dL [facility] Osmolality Calc [Osmolality] 281 [facility] Potassium [Moles/Vol] 4.3 mmol/L 3.5 - 5.0 mmol/L [facility] Sodium [Moles/Vol] 132 mmol/L Low 135 - 145 mmol/L [facility] Urea nitrogen [Mass/Vol] 16 mg/dL 7 - 25 mg/dL [facility] Urea nitrogen/Creatinine [Mass ratio] 10 mg/mg [facility] EXTRA MICROon 08-30-2023 [facility] HEPATIC FUNCTION PANELon Albumin [Mass/Vol] 3.7 g/dL 3.5 - 5.0 g/dL [facility] ALP [Catalytic activity/Vol] 115 U/L 32 - 126 U/L [facility] ALT [Catalytic activity/Vol] 22 U/L 10 - 52 U/L [facility] AST [Catalytic activity/Vol] 34 U/L 10 - 39 U/L [facility] Bilirubin [Mass/Vol] 1.2 mg/dL [facility] Bilirubin.direct [Mass/Vol] 0.3 mg/dL High NINF - 0.3 mg/dL [facility] Protein [Mass/Vol] 7.7 g/dL 6.4 - 8.3 g/dL [facility] MAGNESIUMon 08-30-2023 Interpretation and review of laboratory results Normal [facility] Magnesium [Mass/Vol] 1.8 mg/dL 1.6 - 2 .6 mg/dL [facility] No Panel Informationon 08-30 Interpretation and review of laboratory results Abnormal [facility] CBC,PLATELETSon 08-29-2023 Erythrocyte distribution width (RBC) [Ratio] 13.4 % 10.9 - 14.3 % [facility] Hematocrit (Bld) [Volume fraction] 37.6 % Low 39.6 - 48.8 % [facility] Hemoglobin (Bld) [Mass/Vol] 12.2 g/dL Low 13.4 - 16.8 g/dL [facility] Interpretation and review of laboratory results Abnormal [facility] MCH (RBC) [Entitic mass] 27.6 pg 26.1 - 33.3 pg [facility] MCHC (RBC) [Mass/Vol] 32.4 g/dL 31.9 - 36.5 g/dL [facility] MCV (RBC) [Entitic vol] 85.1 fL 79.0 - 94.5 fL [facility] Platelet mean volume (Bld) [Entitic vol] 9.4 fL 8.7 - 12.3 fL [facility] Platelets (Bld) [#/Vol] 233 10*3/uL 146 - 337 K/uL [facility] RBC (Bld) [#/Vol] 4.42 10*6/uL [facility] WBC (Bld) [#/Vol] 4.92 10*3/uL 3.73 - 10. 10 K/uL [facility] CHEM 7 (LYTES,BUN,CREA,GLUC) on 08-29-2023 Anion gap [Moles/Vol] 13 mmol/L 7 - 17 mmol/L [facility] Chloride [Moles/Vol] 105 mmol/L 98 - 10 8 mmol/L [facility] CO2 [Moles/Vol] 20 mmol/L Low 21 - 31 mmol/L [facility] Creatinine [Mass/Vol] 1.55 mg/dL High 0.70 - 1.30 mg/dL [facility] eGFR, CKD-EPI, Male 55 Low - PINF [facility] Glucose [Mass/Vol] 108 mg/dL High 70 - 99 mg/dL [facility] Osmolality Calc [Osmolality] 283 [facility] Potassium [Moles/Vol] 4.5 mmol/L 3.5 - 5.0 mmol/L [facility] Sodium [Moles/Vol] 133 mmol/L Low 135 - 145 mmol/L [facility] Urea nitrogen [Mass/Vol] 19 mg/dL 7 - 25 mg/dL [facility] Urea nitrogen/Creatinine [Mass ratio] 12 mg/mg [facility] GGTon 08-29-2023 Gamma glutamyl transferase [Catalytic activity/Vol] 64 U/L 8 - 64 U/L [facility] Interpretation and review of laboratory results Normal [facility] HEPATIC FUNCTION PANELon Albumin [Mass/Vol] 3.3 g/dL Low 3.5 - 5.0 g/dL [facility] ALP [Catalytic activity/Vol] 103 U/L 32 - 126 U/L [facility] ALT [Catalytic activity/Vol] 18 U/L 10 - 52 U/L [facility] AST [Catalytic activity/Vol] 27 U/L 10 - 39 U/L [facility] Bilirubin [Mass/Vol] 1.1 mg/dL NINF - 1.5 mg/dL [facility] Bilirubin.direct [Mass/Vol] 0.3 mg/dL High NINF - 0.3 mg/dL [facility] Protein [Mass/Vol] 6.8 g/dL 6.4 - 8.3 g/dL [facility] MAGNESIUMon 08-29-2023 Interpretation and review of laboratory results Normal [facility] Magnesium [Mass/Vol] 1.7 mg/dL 1.6 - 2 .6 mg/dL [facility] No Panel Informationon 08-29 Interpretation and review of laboratory results Abnormal [facility] PT,INR,PTTon 08-29-2023 aPTT Coag (PPP) [Time] 29.3 s [facility] INR Coag (Bld) [Relative time] 1.1 {INR} 0.9 - 1.1 [facility] Interpretation and review of laboratory results Normal [facility] PT Coag (PPP) [Time] 13.8 s [facility] Portable XR Chest Viewson RADIOLOGY RADIOLOGY [facility] Portable XR Chest ViewsOrder ed By: Gerald Baer on 08-29-2023 [facility] Work Phone: TACROLIMUS LEVEL, TROUGH ([place] E DRUG LEVEL)on 08-29-2023 Interpretation and review of laboratory results Normal [facility] Tacrolimus (Bld) [Mass/Vol] 8.9 ng/mL [facility] TACROLIMUS LEVEL, TROUGH (TN E DRUG LEVEL)Ordered By: Roxanne Louie on 08-29-2023 Interpretation and review of laboratory results Normal [facility] Tacrolimus (Bld) [Mass/Vol] 8.7 [facility] URINALYSIS REFLEX TO CULTURE PERFORMABLEOrdered By: Shaji Kelly on 08-29-2023 Appearance (U) Clear Clear [facility] Bacteria LM Ql (Urine sed) ABSENT ABSENT [facility] Calcium Oxalate Crystals PRESENT [facility] Color (U) Yellow Yellow [facility] Epithelial cells.squamous LM Ql (Urine sed) 0-2/hpf 0-2/hpf, 3-5/hpf = 1+ [facility] Glucose Test strip (U) [Mass/Vol] Negative Negative [facility] Interpretation and review of laboratory results Abnormal [facility] Ketones (U) [Mass/Vol] Negative Negative [facility] Leukocyte esterase Test strip Ql (U) Negative Negative [facility] Nitrite Ql (U) Negative Negative [facility] pH (U) 6.0 [pH] 5.0 - 7.0 [facility] Protein (U) [Mass/Vol] Negative Negative [facility] RBC (U) [#/Vol] Trace [facility]normal [facility] RBC LM.HPF (Urine sed) [#/Area] 3-5 Abnormal [facility] Specific gravity (U) [Rel density] 1.015 1.001 - 1.035 [facility] Urobilinogen (U) [Mass/Vol] 1.0 E.U./dL 0.2 E.U/dL, 1.0 E.U/dL [facility] WBC LM.HPF (Urine sed) [#/Area] 0 - 5 [facility] US for transplanted kidney l imitedon 08-29-2023 RADIOLOGY RADIOLOGY [facility] Radiology Study observation (narrative) [facility] US for transplanted kidney l imitedOrdered By: Romana Matias on 08-29-2023 [facility] Work Phone: CBC AND ELECTRONIC DIFFon Basophils (Bld) [#/Vol] K/uL 0.00 - 0.09 K/uL [facility] Basophils/100 WBC (Bld) 0.6 % [facility] Differential cell count method Nom (Bld) Electronic Differential [facility] Eosinophils (Bld) [#/Vol] 0.10 10*3/uL 0.00 - 0.48 K/uL [facility] Eosinophils/100 WBC (Bld) 2.1 % [facility] Erythrocyte distribution width (RBC) [Ratio] 13.4 % 10.9 - 14.3 % [facility] Hematocrit (Bld) [Volume fraction] 37.9 % Low 39.6 - 48.8 % [facility] Hemoglobin (Bld) [Mass/Vol] 12.4 g/dL Low 13.4 - 16.8 g/dL [facility] Immature granulocytes (Bld) [#/Vol] K/uL NINF - 0.07 K/uL [facility] Immature granulocytes/100 WBC (Bld) 0.6 % [facility] Interpretation and review of laboratory results Abnormal [facility] Lymphocytes (Bld) [#/Vol] 1.76 10*3/uL 0.83 - 3.57 K/uL [facility] Lymphocytes/100 WBC (Bld) 37.1 % [facility] MCH (RBC) [Entitic mass] 27.8 pg 26.1 - 33.3 pg [facility] MCHC (RBC) [Mass/Vol] 32.7 g/dL 31.9 - 36.5 g/dL [facility] MCV (RBC) [Entitic vol] 85.0 fL 79.0 - 94.5 fL [facility] Monocytes (Bld) [#/Vol] 0.66 10*3/uL 0.24 - 0.93 K/uL [facility] Monocytes/100 WBC (Bld) 13.9 % [facility] Neutrophils (Bld) [#/Vol] 2.16 10*3/uL 1.57 - 6.19 K/uL [facility] Nucleated RBC/100 WBC (Bld) [Ratio] 0.0 % NINF [facility] Platelet mean volume (Bld) [Entitic vol] 9.3 fL 8.7 - 12.3 fL [facility] Platelets (Bld) [#/Vol] 262 10*3/uL 146 - 337 K/uL [facility] RBC (Bld) [#/Vol] 4.46 10*6/uL [facility] Segmented neutrophils/100 WBC (Bld) 45.7 % [facility] WBC (Bld) [#/Vol] 4.74 10*3/uL 3.73 - 10. 10 K/uL [facility] CHEM 6 (LYTES, BUN CREA)on 0 08-28-2023 Anion gap [Moles/Vol] 13 mmol/L 7 - 17 mmol/L [facility] Chloride [Moles/Vol] 103 mmol/L 98 - 10 8 mmol/L [facility] CO2 [Moles/Vol] 22 mmol/L 21 - 31 mmol/L [facility] Creatinine [Mass/Vol] 1.62 mg/dL High 0.70 - 1.30 mg/dL [facility] eGFR, CKD-EPI, Male 52 Low - PINF [facility] Interpretation and review of laboratory results Abnormal [facility] Potassium [Moles/Vol] 4.3 mmol/L 3.5 - 5.0 mmol/L [facility] Sodium [Moles/Vol] 134 mmol/L Low 135 - 145 mmol/L [facility] Urea nitrogen [Mass/Vol] 22 mg/dL 7 - 25 mg/dL [facility] Urea nitrogen/Creatinine [Mass ratio] 14 mg/mg [facility] Portable XR Chest Viewson Radiology Study observation (narrative) [facility] Respiratory virus DNA+RNA NA A+probe Nom (Unsp spec)Ordered By: Dayami Harris on 08-28-2023 Adenovirus DNA ESTELITA+probe Nom (Unsp spec) Not detected Not Detected [facility] B. parapertussis DNA ESTELITA+probe Ql (Unsp spec) Not detected Not Detected [facility] B. pertussis DNA ESTELITA+probe Ql (Unsp spec) Not detected Not Detected [facility] C. pneumoniae DNA ESTELITA+probe Ql (Unsp spec) Not detected Not Detected [facility] FLUAV RNA ESTELITA+probe Ql (Unsp spec) Not detected Not Detected [facility] FLUBV RNA ESTELITA+probe Ql (Unsp spec) Not detected Not Detected [facility] HCoV 229E RNA ESTELITA+non-probe Ql (Nph) Not detected Not [facility]ed [facility] H[facility] HKU1 RNA ESTELITA+non-probe Ql (Nph) Not detected Not Detected [facility] HCoV NL63 RNA ESTELITA+non-probe Ql (Nph) Not detected Not Detected [facility] HCoV OC43 RNA ESTELITA+non-probe Ql (Nph) Not detected Not Detected [facility] hMPV A RNA ESTELITA+probe Ql (Unsp spec) Not detected Not Detected [facility] Interpretation and review of laboratory results Normal [facility] M. pneumoniae DNA ESTELITA+probe Ql (Unsp spec) Not detected Not Detected [facility] Parainfluenza virus 1 RNA ESTELITA+probe Ql (Unsp spec) Not detected Not Detected [facility] Parainfluenza virus 2 RNA ESTELITA+probe Ql (Unsp spec) Not detected Not Detected [facility] Parainfluenza virus 3 RNA ESTELITA+probe Ql (Unsp spec) Not detected Not Detected [facility] Parainfluenza virus 4 RNA ESTELITA+probe Ql (Unsp spec) Not detected Not Detected [facility] Rhinovirus+Enterovirus RNA ESTELITA+probe Ql (Unsp spec) Not detected Not Detected [facility] RSV RNA ESTELITA+probe Ql (Unsp spec) Not detected Not Detected [facility] SARS-CoV-2 (COVID-19) RNA ESTELITA+probe Ql (Unsp spec) Not detected NOT DETECTED [facility] ALB[facility]IN[facility]-28-2023 Albumin [Mass/Vol] 4.0 g/dL Normal 3.4-5.[address] [facility] Comment on above: Performed By: #### C MP #### [facility] [address] [place] [address] Dr. Dwight Waters ALKALINE PHOSPHAon ALP [Catalytic activity/Vol] 106 U/L Normal 46-116 [facility] Comment on above: Performed By: #### F [id number] #### [facility] [address] [place] [address] Dr. Dwight Waters BILIRUBIN CONJUGATED (DIRECT )on 04-28-2023 BILI, CONJUGATED 0.3 mg/dL Critically high 0.0-0.2 [facility] Comment on above: Performed By: #### C MP #### [facility] [address] [place] [address] Dr. Dwight Waters BILIRUBIN TOTALon 04-28-2023 Bilirubin [Mass/Vol] 1.4 mg/dL Critically high 0.2-1.0 [facility] Comment on above: Performed By: #### C MP #### [facility] [address] [place] [address] Dr. Dwight Waters BUNon 04-28-2023 Urea nitrogen [Mass/Vol] 12.0 mg/dL Normal 7.0-18.0 [facility] Comment on above: Performed By: #### U RTPCR #### [facility] [address] [place] [address] Dr. Dwight Waters CALCIUMon 04-28-2023 Calcium [Mass/Vol] 9.3 mg/dL Normal 8.5-10.[address] [facility] Comment on above: Performed By: #### U RTPCR #### [facility] [address] [place] [address] Dr. Dwight Waters CBC AUTO DIFFon 04-28-2023 BASO # 0.1 103/ul Normal 0.0-0.1 [facility] Comment on above: Performed By: #### C BC #### [facility] [address] [place] [address] Dr. Dwight Waters Basophils/100 WBC (Bld) 0.9 % Normal 0.2-2.0 [facility] Comment on above: Performed By: #### C BC #### [facility] [address] [place] [address] Dr. Dwight Waters EO # 0.2 103/ul Normal 0.0-0.7 [facility] Comment on above: Performed By: #### C BC #### [facility] [address] [place] [address] Dr. Dwight Waters Eosinophils/100 WBC (Bld) 3.8 % Normal 0.9-7.0 [facility] Comment on above: Performed By: #### C BC #### [facility] [address] [place] [address] Dr. Dwight Waters Erythrocyte distribution width (RBC) [Ratio] 12.5 % Normal 11.0-15.0 [facility] Comment on above: Performed By: #### C BC #### [facility] [address] [place] [address] Dr. Dwight Waters Hematocrit (Bld) [Volume fraction] 49.8 % Normal 42.0-54.0 [facility] Comment on above: Performed By: #### C BC #### [facility] [address] [place] [address] Dr. Dwight Waters Hemoglobin (Bld) [Mass/Vol] 16.4 g/dL Normal 14.0-18.0 [facility] Comment on above: Performed By: #### C BC #### [facility] [address] [place] [address] Dr. Dwight Waters IG # 0.01 10e3/ul Normal 0.00-0.03 [facility] Comment on above: Performed By: #### C BC #### [facility] [address] [place] [address] Dr. Dwight Waters IG % 0.2 % Normal 0.0-0.5 [facility] Comment on above: Performed By: #### C BC #### [facility] [address] [place] [address] Dr. Dwight Waters LYMPH # 2.1 103/ul Normal 1.2-3.8 [facility] Comment on above: Performed By: #### C BC #### [facility] [address] [place] [address] Dr. Dwight Waters Lymphocytes/100 WBC (Bld) 39.1 % Normal 20.5-60.0 [facility] Comment on above: Performed By: #### C BC #### [facility] [address] [place] [address] Dr. Dwight Waters MANUAL DIFF REQ NO Normal [facility] Comment on above: Performed By: #### C BC #### [facility] [address] [place] [address] Dr. Dwight Waters MCH (RBC) [Entitic mass] 28.6 pg Normal 25.9-34.0 [facility] Comment on above: Performed By: #### C BC #### [facility] [address] [place] [address] Dr. Dwight Waters MCHC (RBC) [Mass/Vol] 32.9 g/dL Normal 29.9-35.2 [facility] Comment on above: Performed By: #### C BC #### [facility] [id number] Dwight Waters MCV (RBC) [Entitic vol] 86.9 fL Normal 80.0-94.0 [facility] Comment on above: Performed By: #### C BC #### [facility] [address] [address] [address] Dwight Waters MONO # 0.6 103/ul Normal 0.3-0.8 [facility] Comment on above: Performed By: #### C BC #### [facility] [address] [place] [address] Dr. Dwight Waters Monocytes/100 WBC (Bld) 10.6 % Normal 1.7-12.0 [facility] Comment on above: Performed By: #### C BC #### [facility] [address] [place] [address] Dr. Dwight Waters NEUT # 2.5 103/ul Normal 1.4-6.5 [facility] Comment on above: Performed By: #### C BC #### [facility] [address] [place] [address] Dr. Dwight Waters Neutrophils/100 WBC (Bld) 45.4 % Normal 43.0-75.0 [facility] Comment on above: Performed By: #### C BC #### [facility] [address] [place] [address] Dr. Dwight Waters Platelet mean volume (Bld) [Entitic vol] 9.3 fL Critically low 9.5-13.5 [facility] Comment on above: Performed By: #### C BC #### [facility] [address] [place] [address] Dr. Dwight Waters PLT 248 103/ul Normal 150-450 [facility] Comment on above: Performed By: #### C BC #### [facility] [address] [place], [place] [id number] Dr. Dwight Waters RBC 5.73 106/ul Normal 4.70-6.10 [facility] Comment on above: Performed By: #### C BC #### [facility] [address] [place] [address] Dr. Dwight Waters WBC 5.5 103/ul Normal 4.0-11.0 [facility] Comment on above: Performed By: #### C BC #### [facility] [address] [place] [address] Dr. Dwight Waters CHLORIDEon 04-28-2023 Chloride [Moles/Vol] 107 mmol/L Normal 98-107 [facility] Comment on above: Performed By: #### U RTPCR #### [facility] [address] [place] [address] Dr. Dwight Waters CO2on 04-28-2023 CO2 [Moles/Vol] 28.9 mmol/L Normal 21.0-32.0 [facility] Comment on above: Performed By: #### U RTPCR #### [facility] [address] [place] [address] Dr. Dwight Waters CREATININEon 04-28-2023 Creatinine [Mass/Vol] 1.17 mg/dL Normal 0.70-1.30 [facility] Comment on above: Performed By: #### U RTPCR #### [facility] [address] [place] [address] Dr. Dwight Waters EGFR-AF [place]ONG [place]ER >60 Normal >=60 [facility] Comment on above: Performed By: #### U RTPCR #### [facility] [address] [place] [address] Dr. Dwight Waters EGFR-NON AF [place] >60 Normal >=60 [facility] Comment on above: Performed By: #### U RTPCR #### [facility] [address] [place] [address] Dr. Dwight Waters GGTon 04-28-2023 Gamma glutamyl transferase [Catalytic activity/Vol] 27 U/L Normal 15-85 [facility] Comment on above: Performed By: #### U RTPCR #### [facility] [address] [place] [address] Dr. Dwight Waters GLUCOSE BLOODon 04-28-2023 Glucose [Mass/Vol] 110 mg/dL Critically high 74-106 T [facility] Comment on above: Performed By: #### U RTPCR #### [facility] [address] [place] [address] Dr. Dwight Waters MAGNESIUMon 04-28-2023 Magnesium [Mass/Vol] 1.7 mg/dL Critically low 1.8-2.4 [facility] Comment on above: Performed By: #### U RTPCR #### [facility] [address] [place] [address] Dr. Dwight Waters NAon 04-28-2023 Sodium [Moles/Vol] 144 mmol/L Normal 136-[address] [facility] Comment on above: Performed By: #### U RTPCR #### [facility] [address] [place] [address] Dr. Dwight Waters PHOSPHORUSon 04-28-2023 Phosphate [Mass/Vol] 3.2 mg/dL Normal 2.6-4.7 [facility] Comment on above: Performed By: #### U RTPCR #### [facility] [address] [place] [address] Dr. Dwight Waters POTASSIUMon 04-28-2023 Potassium [Moles/Vol] 4.0 mmol/L Normal 3.5-5.1 [facility] Comment on above: Performed By: #### U RTPCR #### [facility] [address] [place] [address] Dr. Dwight Waters SGOTon 04-28-2023 AST [Catalytic activity/Vol] 25 U/L Normal 15-37 [facility] Comment on above: Performed By: #### C MP #### [facility] [address] [place] [address] Dr. Dwight Waters SGPTon 04-28-2023 ALT [Catalytic activity/Vol] 40 U/L Normal 16-63 [facility] Comment on above: Performed By: #### C MP #### [facility] [address] [place] [address] Dr. Dwight Waters URINE T PROTEIN CREAT RATIOo n 04-28-2023 Protein (U) [Mass/Vol] 10.1 mg/dL Normal <=12.[address] [facility] Comment on above: Performed By: #### U RTPCR #### [facility] [address] [place] [address] Dr. Dwight Waters UR PROT CREAT RAT 0.14 Normal [facility] Comment on above: Performed By: #### U RTPCR #### [facility] [address] [place] [address] Dr. Dwight Waters URINE CREAT 74.40 mg/dL Normal 20.00-300.00 [facility] Comment on above: Performed By: #### U RTPCR #### [facility] [address] [place] [address] Dr. Dwight Waters BK VIRUS PCR QUANTon 023 BKV DNA QUANT PCR PLASMA Negative Normal Negative [facility] Comment on above: Result Comment: No B K DNA detected. . The linear range of the assay is 22 - 100,000,000 IU/mL. Performed By: #### B KVIRUS #### [facility] [address] [place] [address] Dr. Dwight Waters Log10 BKV DNA Plasma Normal [facility] Comment on above: Performed By: #### B KVIRUS #### [facility] [address] [place] [address] Dr. Dwight Waters FK506 (TACROLIMUS) WHOLE BLO ODon 03-04-2023 Tacrolimus (FK506), Blood 5.9 ng/mL Normal 2.0-20.0 [facility] Comment on above: Result Comment: Trou gh (immediately following transplant) 15.0 . Trough (steady state, 2 weeks or more after transplant): 3.0 - 8.0 . Performed by LC-MS/MS technology. Performed By: #### C MP #### [facility] [address] [place] [address] Dr. Dwight Waters ALBUMINon 03-02-2023 Albumin [Mass/Vol] 3.9 g/dL Normal 3.4-5.[address] [facility] Comment on above: Performed By: #### U RTPCR #### [facility] [address] [place] [address] Dr. Dwight Waters ALKALINE PHOSPHAon ALP [Catalytic activity/Vol] 105 U/L Normal 46-116 [facility] Comment on above: Performed By: #### U RTPCR #### [facility] [address] [place] [address] Dr. Dwight Waters BILIRUBIN CONJUGATED (DIRECT )on 03-02-2023 BILI, CONJUGATED 0.2 mg/dL Normal 0.0-0.2 [facility] Comment on above: Performed By: #### U RTPCR #### [facility] [address] [place] [address] Dr. Dwight Waters BILIRUBIN TOTALon 03-02-2023 Bilirubin [Mass/Vol] 0.9 mg/dL Normal 0.2-1.0 [facility] Comment on above: Performed By: #### U RTPCR #### [facility] [address] [place] [address] Dr. Dwight Waters CBC AUTO DIFFon 03-02-2023 BASO # 0.1 103/ul Normal 0.0-0.1 [facility] Comment on above: Performed By: #### C BC #### [facility] [address] [place] [address] Dr. Dwight Waters Basophils/100 WBC (Bld) 0.9 % Normal 0.2-2.0 [facility] Comment on above: Performed By: #### C BC #### [facility] [address] [place] [address] Dr. Dwight Waters EO # 0.2 103/ul Normal 0.0-0.7 [facility] Comment on above: Performed By: #### C BC #### [facility] [address] [place] [address] Dr. Dwight Waters Eosinophils/100 WBC (Bld) 3.5 % Normal 0.9-7.0 [facility] Comment on above: Performed By: #### C BC #### [facility] [address] [place] [address] Dr. Dwight Waters Erythrocyte distribution width (RBC) [Ratio] 12.7 % Normal 11.0-15.0 [facility] Comment on above: Performed By: #### C BC #### [facility] [address] [place] [address] Dr. Dwight Waters Hematocrit (Bld) [Volume fraction] 48.2 % Normal 42.0-54.0 [facility] Comment on above: Performed By: #### C BC #### [facility] [address] [place] [address] Dr. Dwight Waters Hemoglobin (Bld) [Mass/Vol] 15.9 g/dL Normal 14.0-18.0 [facility] Comment on above: Performed By: #### C BC #### [facility] [address] [place] [address] Dr. Dwight Waters IG # 0.01 10e3/ul Normal 0.00-0.03 [facility] Comment on above: Performed By: #### C BC #### [facility] [address] [place] [address] Dr. Dwight Waters IG % 0.2 % Normal 0.0-0.5 [facility] Comment on above: Performed By: #### C BC #### [facility] [address] [place] [address] Dr. Dwight Waters LYMPH # 2.1 103/ul Normal 1.2-3.8 [facility] Comment on above: Performed By: #### C BC #### [facility] [address] [place] [address] Dr. Dwight Waters Lymphocytes/100 WBC (Bld) 37.4 % Normal 20.5-60.0 [facility] Comment on above: Performed By: #### C BC #### [facility] [address] [place] [address] Dr. Dwight Waters MANUAL DIFF REQ NO Normal [facility] Comment on above: Performed By: #### C BC #### [facility] [address] [place] [address] Dr. Dwight Waters MCH (RBC) [Entitic mass] 28.3 pg Normal 25.9-34.0 [facility] Comment on above: Performed By: #### C BC #### [facility] [address] [place] [address] Dr. Dwight Waters MCHC (RBC) [Mass/Vol] 33.0 g/dL Normal 29.9-35.2 [facility] Comment on above: Performed By: #### C BC #### [facility] [address] [place] [address] Dr. Dwight Waters MCV (RBC) [Entitic vol] 85.8 fL Normal 80.0-94.0 [facility] Comment on above: Performed By: #### C BC #### [facility] [address] [place] [address] Dr. Dwight Waters MONO # 0.6 103/ul Normal 0.3-0.8 [facility] Comment on above: Performed By: #### C BC #### [facility] [address] [place] [address] Dr. Dwight Waters Monocytes/100 WBC (Bld) 10.2 % Normal 1.7-12.0 [facility] Comment on above: Performed By: #### C BC #### [facility] [address] [place] [address] Dr. Dwight Waters NEUT # 2.7 103/ul Normal 1.4-6.5 [facility] Comment on above: Performed By: #### C BC #### [facility] [address] [place] [address] Dr. Dwight Waters Neutrophils/100 WBC (Bld) 47.8 % Normal 43.0-75.0 [facility] Comment on above: Performed By: #### C BC #### [facility] [address] [place] [address] Dr. Dwight Waters Platelet mean volume (Bld) [Entitic vol] 9.3 fL Critically low 9.5-13.5 [facility] Comment on above: Performed By: #### C BC #### [facility] [address] [place] [address] Dr. Dwight Waters PLT 241 103/ul Normal 150-450 [facility] Comment on above: Performed By: #### C BC #### [facility] [address] [place] [address] Dr. Dwight Waters RBC 5.62 106/ul Normal 4.70-6.10 [facility] Comment on above: Performed By: #### C BC #### [facility] [address] [place] [address] Dr. Dwight Waters WBC 5.7 103/ul Normal 4.0-11.0 [facility] Comment on above: Performed By: #### C BC #### [facility] [address] [place] [address] Dr. Dwight Waters GGTon 03-02-2023 Gamma glutamyl transferase [Catalytic activity/Vol] 25 U/L Normal 15-85 [facility] Comment on above: Performed By: #### U RTPCR #### [facility] [address] [place] [address] Dr. Dwight Waters MAGNESIUMon 03-02-2023 Magnesium [Mass/Vol] 1.6 mg/dL Critically low 1.8-2.4 [facility] Comment on above: Performed By: #### U RTPCR #### [facility] [address] [place] [address] Dr. Dwight Waters PHOSPHORUSon 03-02-2023 Phosphate [Mass/Vol] 3.6 mg/dL Normal 2.6-4.7 [facility] Comment on above: Performed By: #### U RTPCR #### [facility] [address] [place] [address] Dr. Dwight Waters PROF CHEM 8 (BAS METB)on Anion gap [Moles/Vol] 9.4 mmol/L Normal [facility] Comment on above: Performed By: #### U RTPCR #### [facility] [address] [place] [address] Dr. Dwight Waters Calcium [Mass/Vol] 9.3 mg/dL Normal 8.5-10.1 [facility] Comment on above: Performed By: #### U RTPCR #### [facility] [address] [place] [address] Dr. Dwight Waters Chloride [Moles/Vol] 108 mmol/L Critically high 98-107 [facility] Comment on above: Performed By: #### U RTPCR #### [facility] [address] [address] [address] Dwight Waters CO2 [Moles/Vol] 27.2 mmol/L Normal 21.0-32.0 [facility] Comment on above: Performed By: #### U RTPCR #### [facility] [address] [address] [address] Dwight Waters Creatinine [Mass/Vol] 1.12 mg/dL Normal 0.70-1.30 [facility] Comment on above: Performed By: #### U RTPCR #### [facility] [address] [address] [address] Dwight Waters EGFR-AF [place]ER >60 Normal >=60 [facility] Comment on above: Performed By: #### U RTPCR #### [facility] [address] [place] [address] Dr. Dwight Waters EGFR-NON AF [place] >60 Normal >=60 [facility] Comment on above: Performed By: #### U RTPCR #### [facility] [address] [address] [address] Dwight Waters Glucose [Mass/Vol] 113 mg/dL Critically high 74-106 [facility] Comment on above: Performed By: #### U RTPCR #### [facility] [address] [address] [address] Dwight Waters Potassium [Moles/Vol] 3.6 mmol/L Normal 3.5-5.1 [facility] Comment on above: Performed By: #### U RTPCR #### [facility] [address] [address] [address] Dwight Waters Sodium [Moles/Vol] 141 mmol/L Normal 136-[address] [facility] Comment on above: Performed By: #### U RTPCR #### [facility] [address] [address] [address] Dwight Waters Urea nitrogen [Mass/Vol] 14.0 mg/dL Normal 7.0-18.0 [facility] Comment on above: Performed By: #### U RTPCR #### [facility] [address] [address] [address] Dwight Waters Urea nitrogen/Creatinine [Mass ratio] 12.5 mg/mg Normal [facility] Comment on above: Performed By: #### U RTPCR #### [facility] [address] [place] [address] Dr. Dwight Waters SGOTon 03-02-2023 AST [Catalytic activity/Vol] 20 U/L Normal 15-37 [facility] Comment on above: Performed By: #### U RTPCR #### [facility] [address] [place] [address] Dr. Dwight Waters SGPTon 03-02-2023 ALT [Catalytic activity/Vol] 30 U/L Normal 16-63 [facility] Comment on above: Performed By: #### U RTPCR #### [facility] [address] [place] [address] Dr. Dwight Waters URINE T PROTEIN CREAT RATIOo n 03-02-2023 Protein (U) [Mass/Vol] 10.3 mg/dL Normal <=12.0 [facility] Comment on above: Performed By: #### U RTPCR #### [facility] [address] [place] [address] Dr. Dwight Waters UR PROT CREAT RAT 0.15 Normal [facility] Comment on above: Performed By: #### U RTPCR #### [facility] [address] [place] [address] Dr. Dwight Waters URINE CREAT 68.96 mg/dL Normal 20.00-300.00 [facility] Comment on above: Performed By: #### U RTPCR #### [facility] [address] [place] [address] Dr. Dwight Waters BK VIRUS PCR QUANTon 023 BKV DNA QUANT PCR PLASMA Negative Normal Negative [facility] Comment on above: Result Comment: No B K DNA detected. . The linear range of the assay is 22 - 100,000,000 IU/mL. Performed By: #### C MP #### [facility] [address] [place] [address] Dr. Dwight Waters Log10 BKV DNA Plasma Normal [facility] Comment on above: Performed By: #### C MP #### [facility] [address] [place] [address] Dr. Dwight Waters FK506 (TACROLIMUS) WHOLE BLO ODon 12-31-2022 Tacrolimus (FK506), Blood 5.6 ng/mL Normal 2.0-20.0 [facility] Comment on above: Result Comment: Trou gh (immediately following transplant) 15.0 . Trough (steady state, 2 weeks or more after transplant): 3.0 - 8.0 . Performed by LC-MS/MS technology. Performed By: #### C MP #### [facility] [address] [place] [address] Dr. Dwight Waters ALKALINE PHOSPHAon ALP [Catalytic activity/Vol] 96 U/L Normal 46-116 [facility] Comment on above: Performed By: #### C BC #### [facility] [address] [place] [address] Dr. Dwight Waters BILIRUBIN CONJUGATED (DIRECT )on 12-29-2022 BILI, CONJUGATED 0.3 mg/dL Critically high 0.0-0.2 [facility] Comment on above: Performed By: #### C BC #### [facility] [address] [place] [address] Dr. Dwight Waters BILIRUBIN TOTALon 12-29-2022 Bilirubin [Mass/Vol] 1.1 mg/dL Critically high 0.2-1.0 [facility] Comment on above: Performed By: #### C BC #### [facility] [address] [place] [address] Dr. Dwight Waters CBC AUTO DIFFon 12-29-2022 BASO # 0.1 103/ul Normal 0.0-0.1 [facility] Comment on above: Performed By: #### C MP #### [facility] [address] [place] [address] Dr. Dwight Waters Basophils/100 WBC (Bld) 0.8 % Normal 0.2-2.0 [facility] Comment on above: Performed By: #### C MP #### [facility] [address] [place] [address] Dr. Dwight Waters EO # 0.2 103/ul Normal 0.0-0.7 [facility] Comment on above: Performed By: #### C MP #### [facility] [address] [place] [address] Dr. Dwight Waters Eosinophils/100 WBC (Bld) 3.0 % Normal 0.9-7.0 [facility] Comment on above: Performed By: #### C MP #### [facility] [address] [place] [address] Dr. Dwight Waters Erythrocyte distribution width (RBC) [Ratio] 12.9 % Normal 11.0-15.0 [facility] Comment on above: Performed By: #### C MP #### [facility] [address] [place] [address] Dr. Dwight Waters Hematocrit (Bld) [Volume fraction] 46.9 % Normal 42.0-54.0 [facility] Comment on above: Performed By: #### C MP #### [facility] [address] [place] [address] Dr. Dwight Waters Hemoglobin (Bld) [Mass/Vol] 16.1 g/dL Normal 14.0-18.0 [facility] Comment on above: Performed By: #### C MP #### [facility] [address] [place] [address] Dr. Dwight Waters IG # 0.01 10e3/ul Normal 0.00-0.03 [facility] Comment on above: Performed By: #### C MP #### [facility] [address] [place] [address] Dr. Dwight Waters IG % 0.2 % Normal 0.0-0.5 [facility] Comment on above: Performed By: #### C MP #### [facility] [address] [place] [address] Dr. Dwight Waters LYMPH # 1.8 103/ul Normal 1.2-3.8 [facility] Comment on above: Performed By: #### C MP #### [facility] [address] [place] [address] Dr. Dwight Waters Lymphocytes/100 WBC (Bld) 27.9 % Normal 20.5-60.0 [facility] Comment on above: Performed By: #### C MP #### [facility] [address] [place] [address] Dr. Dwight Waters MANUAL DIFF REQ NO Normal [facility] Comment on above: Performed By: #### C MP #### [facility] [address] [place] [address] Dr. Dwight Waters MCH (RBC) [Entitic mass] 28.5 pg Normal 25.9-34.0 [facility] Comment on above: Performed By: #### C MP #### [facility] [address] [place] [address] Dr. Dwight Waters MCHC (RBC) [Mass/Vol] 34.3 g/dL Normal 29.9-35.2 [facility] Comment on above: Performed By: #### C MP #### [facility] [address] [place] [address] Dr. Dwight Waters MCV (RBC) [Entitic vol] 83.2 fL Normal 80.0-94.0 [facility] Comment on above: Performed By: #### C MP #### [facility] [address] [place] [address] Dr. Dwight Waters MONO # 0.5 103/ul Normal 0.3-0.8 [facility] Comment on above: Performed By: #### C MP #### [facility] [address] [place] [address] Dr. Dwight Waters Monocytes/100 WBC (Bld) 8.1 % Normal 1.7-12.0 [facility] Comment on above: Performed By: #### C MP #### [facility] [address] [place] [address] Dr. Dwight Waters NEUT # 3.8 103/ul Normal 1.4-6.5 [facility] Comment on above: Performed By: #### C MP #### [facility] [address] [place] [address] Dr. Dwight Waters Neutrophils/100 WBC (Bld) 60.0 % Normal 43.0-75.0 [facility] Comment on above: Performed By: #### C MP #### [facility] [address] [address] [address] Dwight Waters Platelet mean volume (Bld) [Entitic vol] 9.2 fL Critically low 9.5-13.5 [facility] Comment on above: Performed By: #### C MP #### [facility] [address] [address] [address] Dwight Waters PLT 225 103/ul Normal 150-450 [facility] Comment on above: Performed By: #### C MP #### [facility] [address] [address] [address] Dwight Waters RBC 5.64 106/ul Normal 4.70-6.10 [facility] Comment on above: Performed By: #### C MP #### [facility] [address] [place] [address] Dr. Dwight Waters WBC 6.3 103/ul Normal 4.0-11.0 [facility] Comment on above: Performed By: #### C MP #### [facility] [address] [place] [address] Dr. Dwight Waters GGTon 12-29-2022 Gamma glutamyl transferase [Catalytic activity/Vol] 24 U/L Normal 15-85 [facility] Comment on above: Performed By: #### C MP #### [facility] [address] [place] [address] Dr. Dwight Waters LIPID PROFILEon 12-29-2022 CHOL-HDL RATIO NORM SEE BELOW Normal [facility] Comment on above: Result Comment: 3.3 - 4.4 LOW RISK 4.4 - 7.1 AVERAGE RISK 7.1 - 11.0 MODERATE RISK >11.0 HIGH RISK Performed By: #### U RTPCR #### [facility] [address] [place] [address] Dr. Dwight Waters Cholesterol [Mass/Vol] 87 mg/dL Normal <=[address] [facility] Comment on above: Performed By: #### U RTPCR #### [facility] [address] [place] [address] Dr. Dwight Waters Cholesterol in HDL [Mass/Vol] 44 mg/dL Normal 40-60 [facility] Comment on above: Performed By: #### U RTPCR #### [facility] [address] [address] [address] Dwight Waters Cholesterol in LDL [Mass/Vol] 33.0 mg/dL Normal [facility] Comment on above: Performed By: #### U RTPCR #### [facility] [address] [address] [address] Dwight Waters Cholesterol.total/Chol esterol in HDL [Mass ratio] 2.0 {ratio} Normal [facility] Comment on above: Performed By: #### U RTPCR #### [facility] [address] [address] [address] Dwight Waters HDL NORMAL > or = 60 mg/dl - LO W CARDIOVASCULAR RISK <40 mg/dl - HIGH CARDIOVASCULAR RISK Normal [facility] Comment on above: Performed By: #### U RTPCR #### [facility] [address] [address] [address] Dwight Waters LDL CALC NORMAL SEE BELOW Normal [facility] Comment on above: Result Comment: <100 mg/dl OPTIMAL 100 - 129 mg/dl NEAR OR ABOVE OPTIMAL 130 - 159 mg/dl BORDERLINE HIGH 160 - 189 mg/dl HIGH >190 mg/dl VERY HIGH Performed By: #### U RTPCR #### [facility] [address] [address] [address] Dwight Waters Triglyceride [Mass/Vol] 50 mg/dL Normal <=150 [facility] Comment on above: Performed By: #### U RTPCR #### [facility] [address] [address] [address] Dwight Waters VLDL CALC 10.0 mg/dL Normal [facility] Comment on above: Performed By: #### U RTPCR #### [facility] [address] [place] [address] Dr. Dwight Waters MAGNESIUMon 12-29-2022 Magnesium [Mass/Vol] 1.6 mg/dL Critically low 1.8-2.4 [facility] Comment on above: Performed By: #### C BC #### [facility] [address] [address] [address] Dwight Waters RENAL FUNCTION PANELon 12-29 Albumin [Mass/Vol] 3.9 g/dL Normal 3.4-5.[address] [facility] Comment on above: Performed By: #### C BC #### [facility] [address] [place] [address] Dr. Dwight Waters Calcium [Mass/Vol] 9.2 mg/dL Normal 8.5-10.[address] [facility] Comment on above: Performed By: #### C BC #### [facility] [address] [place] [address] Dr. Dwight Waters Chloride [Moles/Vol] 109 mmol/L Critically high 98-107 [facility] Comment on above: Performed By: #### C BC #### [facility] [address] [place] [address] Dr. Dwight Waters CO2 [Moles/Vol] 27.0 mmol/L Normal 21.0-32.0 [facility] Comment on above: Performed By: #### C BC #### [facility] [address] [place] [address] Dr. Dwight Waters Creatinine [Mass/Vol] 1.02 mg/dL Normal 0.70-1.30 [facility] Comment on above: Performed By: #### C BC #### [facility] [address] [place] [address] Dr. Dwight Waters EGFR-AF [place]ER >60 Normal >=60 [facility] Comment on above: Performed By: #### C BC #### [facility] [address] [place] [address] Dr. Dwight Waters EGFR-NON AF [place] >60 Normal >=60 [facility] Comment on above: Performed By: #### C BC #### [facility] [address] [place] [address] Dr. Dwight Waters Glucose [Mass/Vol] 117 mg/dL Critically high 74-106 [facility] Comment on above: Performed By: #### C BC #### [facility] [address] [address] [address] Dwight Waters Phosphate [Mass/Vol] 3.2 mg/dL Normal 2.6-4.7 [facility] Comment on above: Performed By: #### C BC #### [facility] [address] [address] [address] Dwight Waters Potassium [Moles/Vol] 4.1 mmol/L Normal 3.5-5.1 [facility] Comment on above: Performed By: #### C BC #### [facility] [address] [address] [address] Dwight Waters Sodium [Moles/Vol] 144 mmol/L Normal 136-[address] [facility] Comment on above: Performed By: #### C BC #### [facility] [address] [place] [address] Dr. Dwight Waters Urea nitrogen [Mass/Vol] 13.0 mg/dL Normal 7.0-18.0 [facility] Comment on above: Performed By: #### C BC #### [facility] [address] [place] [address] Dr. Dwight Waters SGOTon 12-29-2022 AST [Catalytic activity/Vol] 21 U/L Normal 15-37 [facility] Comment on above: Performed By: #### C BC #### [facility] [address] [place] [address] Dr. Dwight Waters SGPTon 12-29-2022 ALT [Catalytic activity/Vol] 32 U/L Normal 16-63 [facility] Comment on above: Performed By: #### C BC #### [facility] [address] [place] [address] Dr. Dwight Waters URINE T PROTEIN CREAT RATIOo n 12-29-2022 Protein (U) [Mass/Vol] 14.3 mg/dL Critically high <=12.0 [facility] Comment on above: Performed By: #### U RTPCR #### [facility] [address] [address] [address] Dwight Waters UR PROT CREAT RAT 0.17 Normal [facility] Comment on above: Performed By: #### U RTPCR #### [facility] [address] [address] [address] Dwight Waters URINE CREAT 86.58 mg/dL Normal 20.00-300.00 [facility] Comment on above: Performed By: #### U RTPCR #### [facility] [address] [address] [address] Dwight Waters FK506 (TACROLIMUS) WHOLE BLO ODon 11-06-2022 Tacrolimus (FK506), Blood 4.9 ng/mL Normal 2.0-20.0 [facility] Comment on above: Result Comment: Trou gh (immediately following transplant) 15.0 . Trough (steady state, 2 weeks or more after transplant): 3.0 - 8.0 . Performed by LC-MS/MS technology. Performed By: #### U RTPCR #### [facility] [address] [place] [address] Dr. Dwight Waters ALKALINE PHOSPHAon ALP [Catalytic activity/Vol] 86 U/L Normal 46-116 [facility] Comment on above: Performed By: #### U RTPCR #### [facility] [address] [address] [address] Dwight Waters BILIRUBIN CONJUGATED (DIRECT )on 11-04-2022 BILI, CONJUGATED 0.2 mg/dL Normal 0.0-0.2 [facility] Comment on above: Performed By: #### U RTPCR #### [facility] [address] [address] [address] Dwight Waters BILIRUBIN TOTALon 11-04-2022 Bilirubin [Mass/Vol] 0.8 mg/dL Normal 0.2-1.0 [facility] Comment on above: Performed By: #### U RTPCR #### [facility] [address] [place] [address] Dr. Dwight Waters CBC AUTO DIFFon 11-04-2022 BASO # 0.1 103/ul Normal 0.0-0.1 [facility] Comment on above: Performed By: #### U RTPCR #### [facility] [address] [address] [address] Dwight Waters Basophils/100 WBC (Bld) 0.9 % Normal 0.2-2.0 [facility] Comment on above: Performed By: #### U RTPCR #### [facility] [address] [place] [address] Dr. Dwight Waters EO # 0.2 103/ul Normal 0.0-0.7 [facility] Comment on above: Performed By: #### U RTPCR #### [facility] [address] [place] [address] Dr. Dwight Waters Eosinophils/100 WBC (Bld) 3.7 % Normal 0.9-7.0 [facility] Comment on above: Performed By: #### U RTPCR #### [facility] [address] [place] [address] Dr. Dwight Waters Erythrocyte distribution width (RBC) [Ratio] 12.9 % Normal 11.0-15.0 [facility] Comment on above: Performed By: #### U RTPCR #### [facility] [address] [place] [address] Dr. Dwight Watres Hematocrit (Bld) [Volume fraction] 48.3 % Normal 42.0-54.0 [facility] Comment on above: Performed By: #### U RTPCR #### [facility] [address] [place] [address] Dr. Dwight Waters Hemoglobin (Bld) [Mass/Vol] 15.6 g/dL Normal 14.0-18.0 [facility] Comment on above: Performed By: #### U RTPCR #### [facility] [address] [place] [address] Dr. Dwight Waters IG # 0.01 10e3/ul Normal 0.00-0.03 [facility] Comment on above: Performed By: #### U RTPCR #### [facility] [address] [place] [address] Dr. Dwight Waters IG % 0.2 % Normal 0.0-0.5 [facility] Comment on above: Performed By: #### U RTPCR #### [facility] [address] [address] [address] Dwight Waters LYMPH # 1.9 103/ul Normal 1.2-3.8 [facility] Comment on above: Performed By: #### U RTPCR #### [facility] [address] [place] [address] Dr. Dwight Waters Lymphocytes/100 WBC (Bld) 33.0 % Normal 20.5-60.0 [facility] Comment on above: Performed By: #### U RTPCR #### [facility] [address] [place] [address] Dr. Dwight Waters MANUAL DIFF REQ NO Normal [facility] Comment on above: Performed By: #### U RTPCR #### [facility] [address] [place] [address] Dr. Dwight Waters MCH (RBC) [Entitic mass] 27.6 pg Normal 25.9-34.0 [facility] Comment on above: Performed By: #### U RTPCR #### [facility] [address] [place] [address] Dr. Dwight Waters MCHC (RBC) [Mass/Vol] 32.3 g/dL Normal 29.9-35.2 [facility] Comment on above: Performed By: #### U RTPCR #### [facility] [address] [place] [address] Dr. Dwight Waters MCV (RBC) [Entitic vol] 85.5 fL Normal 80.0-94.0 [facility] Comment on above: Performed By: #### U RTPCR #### [facility] [address] [place] [address] Dr. Dwight Waters MONO # 0.5 103/ul Normal 0.3-0.8 [facility] Comment on above: Performed By: #### U RTPCR #### [facility] [address] [address] [address] Dwight Waters Monocytes/100 WBC (Bld) 8.8 % Normal 1.7-12.0 [facility] Comment on above: Performed By: #### U RTPCR #### [facility] [address] [place] [address] Dr. Dwight Waters NEUT # 3.1 103/ul Normal 1.4-6.5 [facility] Comment on above: Performed By: #### U RTPCR #### [facility] [address] [place] [address] Dr. Dwight Waters Neutrophils/100 WBC (Bld) 53.4 % Normal 43.0-75.0 [facility] Comment on above: Performed By: #### U RTPCR #### [facility] [address] [place] [address] Dr. Dwight Waters Platelet mean volume (Bld) [Entitic vol] 9.2 fL Critically low 9.5-13.5 [facility] Comment on above: Performed By: #### U RTPCR #### [facility] [address] [place] [address] Dr. Dwight Waters PLT 255 103/ul Normal 150-450 [facility] Comment on above: Performed By: #### U RTPCR #### [facility] [address] [place] [address] Dr. Dwight Waters RBC 5.65 106/ul Normal 4.70-6.10 [facility] Comment on above: Performed By: #### U RTPCR #### [facility] [address] [place] [address] Dr. Dwight Waters WBC 5.7 103/ul Normal 4.0-11.0 [facility] Comment on above: Performed By: #### U RTPCR #### [facility] [address] [place] [address] Dr. Dwight Waters GGTon 11-04-2022 Gamma glutamyl transferase [Catalytic activity/Vol] 22 U/L Normal 15-85 [facility] Comment on above: Performed By: #### U RTPCR #### [facility] [address] [place] [address] Dr. Dwight Waters MAGNESIUMon 11-04-2022 Magnesium [Mass/Vol] 1.8 mg/dL Normal 1.8-2.4 [facility] Comment on above: Performed By: #### U RTPCR #### [facility] [address] [address] [address] Dwight Waters RENAL FUNCTION PANELon 11-04 Albumin [Mass/Vol] 3.8 g/dL Normal 3.4-5.[address] [facility] Comment on above: Performed By: #### U RTPCR #### [facility] [address] [place] [address] Dr. Dwight Waters Calcium [Mass/Vol] 9.3 mg/dL Normal 8.5-10.1 [facility] Comment on above: Performed By: #### U RTPCR #### [facility] [address] [place] [address] Dr. Dwight Waters Chloride [Moles/Vol] 107 mmol/L Normal 98-107 [facility] Comment on above: Performed By: #### U RTPCR #### [facility] [address] [place] [address] Dr. Dwight Waters CO2 [Moles/Vol] 29.2 mmol/L Normal 21.0-32.0 [facility] Comment on above: Performed By: #### U RTPCR #### [facility] [address] [place] [address] Dr. Dwight Waters Creatinine [Mass/Vol] 1.07 mg/dL Normal 0.70-1.30 [facility] Comment on above: Performed By: #### U RTPCR #### [facility] [address] [place] [address] Dr. Dwight Waters EGFR-AF [place] >60 Normal >=60 [facility] Comment on above: Performed By: #### U RTPCR #### [facility] [address] [place] [address] Dr. Dwight Waters EGFR-NON AF [place] >60 Normal >=60 [facility] Comment on above: Performed By: #### U RTPCR #### [facility] [address] [place] [address] Dr. Dwight Waters Glucose [Mass/Vol] 106 mg/dL Normal 74-106 [facility] Comment on above: Performed By: #### U RTPCR #### [facility] [address] [address] [address] Dwight Waters Phosphate [Mass/Vol] 2.8 mg/dL Normal 2.6-4.7 [facility] Comment on above: Performed By: #### U RTPCR #### [facility] [address] [place] [address] Dr. Dwight Waters Potassium [Moles/Vol] 4.1 mmol/L Normal 3.5-5.1 [facility] Comment on above: Performed By: #### U RTPCR #### [facility] [address] [place] [address] Dr. Dwight Waters Sodium [Moles/Vol] 143 mmol/L Normal 136-[address] [facility] Comment on above: Performed By: #### U RTPCR #### [facility] [address] [place] [address] Dr. Dwight Waters Urea nitrogen [Mass/Vol] 12.0 mg/dL Normal 7.0-18.0 [facility] Comment on above: Performed By: #### U RTPCR #### [facility] [address] [place] [address] Dr. Dwight Waters SGOTon 11-04-2022 AST [Catalytic activity/Vol] 19 U/L Normal 15-37 [facility] Comment on above: Performed By: #### U RTPCR #### [facility] [address] [place] [address] Dr. Dwight Waters SGPTon 11-04-2022 ALT [Catalytic activity/Vol] 28 U/L Normal 16-63 [facility] Comment on above: Performed By: #### U RTPCR #### [facility] [address] [place] [address] Dr. Dwight Waters URINE T PROTEIN CREAT RATIOo n 11-04-2022 Protein (U) [Mass/Vol] 10.7 mg/dL Normal <=12.0 [facility] Comment on above: Performed By: #### U RTPCR #### [facility] [address] [place] [address] Dr. Dwight Waters UR PROT CREAT RAT 0.13 Normal [facility] Comment on above: Performed By: #### U RTPCR #### [facility] [address] [place] [address] Dr. Dwight Waters URINE CREAT 84.50 mg/dL Normal 20.00-300.00 [facility] Comment on above: Performed By: #### U RTPCR #### [facility] [address] [place] [address] Dr. Dwight Waters FK506 (TACROLIMUS) WHOLE BLO ODon 09-18-2022 Tacrolimus (FK506), Blood 4.6 ng/mL Normal 2.0-20.0 [facility] Comment on above: Result Comment: Trou gh (immediately following transplant) 15.0 . Trough (steady state, 2 weeks or more after transplant): 3.0 - 8.0 . Performed by LC-MS/MS technology. Performed By: #### U RTPCR #### [facility] [address] [place] [address] Dr. Dwight Waters BK VIRUS PCR QUANTon 022 BKV DNA QUANT PCR PLASMA Negative Normal Negative [facility] Comment on above: Result Comment: No B K DNA detected. . The linear range of the assay is 22 - 100,000,000 IU/mL. Performed By: #### U RTPCR #### [facility] [address] [place] [address] Dr. Dwight Waters Log10 BKV DNA Plasma Normal [facility] Comment on above: Performed By: #### U RTPCR #### [facility] [address] [place] [address] Dr. Dwight Waters ALKALINE PHOSPHAon ALP [Catalytic activity/Vol] 92 U/L Normal 46-116 [facility] Comment on above: Performed By: #### U RTPCR #### [facility] [address] [place] [address] Dr. Dwight Waters BILIRUBIN CONJUGATED (DIRECT )on 09-15-2022 BILI, CONJUGATED 0.3 mg/dL Critically high 0.0-0.2 [facility] Comment on above: Performed By: #### U RTPCR #### [facility] [address] [place] [address] Dr. Dwight Waters BILIRUBIN TOTALon 09-15-2022 Bilirubin [Mass/Vol] 1.1 mg/dL Critically high 0.2-1.0 [facility] Comment on above: Performed By: #### U RTPCR #### [facility] [address] [address] [address] Dwight Waters CBC AUTO DIFFon 09-15-2022 BASO # 0.1 103/ul Normal 0.0-0.1 [facility] Comment on above: Performed By: #### C BC #### [facility] [address] [place] [address] Dr. Dwight Waters Basophils/100 WBC (Bld) 0.8 % Normal 0.2-2.0 [facility] Comment on above: Performed By: #### C BC #### [facility] [address] [place] [address] Dr. Dwight Waters EO # 0.2 103/ul Normal 0.0-0.7 [facility] Comment on above: Performed By: #### C BC #### [facility] [address] [place] [address] Dr. Dwight Waters Eosinophils/100 WBC (Bld) 3.5 % Normal 0.9-7.0 [facility] Comment on above: Performed By: #### C BC #### [facility] [address] [place] [address] Dr. Dwight Waters Erythrocyte distribution width (RBC) [Ratio] 13.0 % Normal 11.0-15.0 [facility] Comment on above: Performed By: #### C BC #### [facility] [address] [place] [address] Dr. Dwight Waters Hematocrit (Bld) [Volume fraction] 50.0 % Normal 42.0-54.0 [facility] Comment on above: Performed By: #### C BC #### [facility] [address] [place] [address] Dr. Dwight Waters Hemoglobin (Bld) [Mass/Vol] 16.0 g/dL Normal 14.0-18.0 [facility] Comment on above: Performed By: #### C BC #### [facility] [address] [place] [address] Dr. Dwight Waters IG # 0.02 10e3/ul Normal 0.00-0.03 [facility] Comment on above: Performed By: #### C BC #### [facility] [address] [place] [address] Dr. Dwight Waters IG % 0.3 % Normal 0.0-0.5 [facility] Comment on above: Performed By: #### C BC #### [facility] [address] [place] [address] Dr. Dwight Waters LYMPH # 1.8 103/ul Normal 1.2-3.8 [facility] Comment on above: Performed By: #### C BC #### [facility] [address] [place] [address] Dr. Dwight Waters Lymphocytes/100 WBC (Bld) 26.5 % Normal 20.5-60.0 [facility] Comment on above: Performed By: #### C BC #### [facility] [address] [place] [address] Dr. Dwight Waters MANUAL DIFF REQ NO Normal [facility] Comment on above: Performed By: #### C BC #### [facility] [address] [place] [address] Dr. Dwight Waters MCH (RBC) [Entitic mass] 28.1 pg Normal 25.9-34.0 [facility] Comment on above: Performed By: #### C BC #### [facility] [address] [place] [address] Dr. Dwight Waters MCHC (RBC) [Mass/Vol] 32.0 g/dL Normal 29.9-35.2 [facility] Comment on above: Performed By: #### C BC #### [facility] [address] [place] [address] Dr. Dwight Waters MCV (RBC) [Entitic vol] 87.9 fL Normal 80.0-94.0 [facility] Comment on above: Performed By: #### C BC #### [facility] [address] [address] [address] Dwight Waters MONO # 0.5 103/ul Normal 0.3-0.8 [facility] Comment on above: Performed By: #### C BC #### [facility] [address] [place] [address] Dr. Dwight Waters Monocytes/100 WBC (Bld) 8.1 % Normal 1.7-12.0 [facility] Comment on above: Performed By: #### C BC #### [facility] [address] [place] [address] Dr. Dwight Waters NEUT # 4.0 103/ul Normal 1.4-6.5 [facility] Comment on above: Performed By: #### C BC #### [facility] [address] [place] [address] Dr. Dwight Waters Neutrophils/100 WBC (Bld) 60.8 % Normal 43.0-75.0 [facility] Comment on above: Performed By: #### C BC #### [facility] [address] [place] [address] Dr. Dwight Waters Platelet mean volume (Bld) [Entitic vol] 9.4 fL Critically low 9.5-13.5 [facility] Comment on above: Performed By: #### C BC #### [facility] [address] [place] [address] Dr. Dwight Waters PLT 265 103/ul Normal 150-450 [facility] Comment on above: Performed By: #### C BC #### [facility] [address] [place] [address] Dr. Dwight Waters RBC 5.69 106/ul Normal 4.70-6.10 [facility] Comment on above: Performed By: #### C BC #### [facility] [address] [place] [address] Dr. Dwight Waters WBC 6.6 103/ul Normal 4.0-11.0 [facility] Comment on above: Performed By: #### C BC #### [facility] [address] [place] [address] Dr. Dwight Waters GGTon 09-15-2022 Gamma glutamyl transferase [Catalytic activity/Vol] 23 U/L Normal 15-85 [facility] Comment on above: Performed By: #### U RTPCR #### [facility] [address] [place] [address] Dr. Dwight Waters MAGNESIUMon 09-15-2022 Magnesium [Mass/Vol] 1.8 mg/dL Normal 1.8-2.4 [facility] Comment on above: Performed By: #### U RTPCR #### [facility] [address] [place] [address] Dr. Dwight Waters RENAL FUNCTION PANELon 09-15 Albumin [Mass/Vol] 4.1 g/dL Normal 3.4-5.0 [facility] Comment on above: Performed By: #### C BC #### [facility] [address] [place] [address] Dr. Dwight Waters Calcium [Mass/Vol] 9.3 mg/dL Normal 8.5-10.1 [facility] Comment on above: Performed By: #### C BC #### [facility] [address] [place] [address] Dr. Dwight Waters Chloride [Moles/Vol] 107 mmol/L Normal 98-107 [facility] Comment on above: Performed By: #### C BC #### [facility] [address] [place] [address] Dr. Dwight Waters CO2 [Moles/Vol] 25.6 mmol/L Normal 21.0-32.0 [facility] Comment on above: Performed By: #### C BC #### [facility] [address] [place] [address] Dr. Dwight Waters Creatinine [Mass/Vol] 1.01 mg/dL Normal 0.70-1.30 [facility] Comment on above: Performed By: #### C BC #### [facility] [address] [place] [address] Dr. Dwight Waters EGFR-AF [place]ER >60 Normal >=60 [facility] Comment on above: Performed By: #### C BC #### [facility] [address] [address] [address] Dwight Waters EGFR-NON AF [place]ER >60 Normal >=60 [facility] Comment on above: Performed By: #### C BC #### [facility] [address] [address] [address] Dwight Waters Glucose [Mass/Vol] 119 mg/dL Critically high 74-106 T [facility] Comment on above: Performed By: #### C BC #### [facility] [address] [address] [address] Dwight Waters Phosphate [Mass/Vol] 2.8 mg/dL Normal 2.6-4.7 [facility] Comment on above: Performed By: #### C BC #### [facility] [address] [address] [address] Dwight Waters Potassium [Moles/Vol] 4.0 mmol/L Normal 3.5-5.1 [facility] Comment on above: Performed By: #### C BC #### [facility] [address] [address] [address] Dwight Waters Sodium [Moles/Vol] 141 mmol/L Normal 136-[address] [facility] Comment on above: Performed By: #### C BC #### [facility] [address] [address] [address] Dwight Waters Urea nitrogen [Mass/Vol] 15.0 mg/dL Normal 7.0-18.0 [facility] Comment on above: Performed By: #### C BC #### [facility] [address] [address] [address] Dwight Albert 09-15-2022 AST [Catalytic activity/Vol] 18 U/L Normal 15-37 [facility] Comment on above: Performed By: #### U RTPCR #### [facility] [address] [place] [address] Dr. Dwight Osei 09-15-2022 ALT [Catalytic activity/Vol] 32 U/L Normal 16-63 [facility] Comment on above: Performed By: #### C BC #### [facility] [address] [place] [address] Dr. Dwight Waters URINE T PROTEIN CREAT RATIOo n 09-15-2022 Protein (U) [Mass/Vol] 14.1 mg/dL Critically high <=12.0 [facility] Comment on above: Performed By: #### U RTPCR #### [facility] [address] [address] [address] Dwight Waters UR PROT CREAT RAT 0.14 Normal [facility] Comment on above: Performed By: #### U RTPCR #### [facility] [address] [address] [address] Dwight Waters URINE CREAT 98.89 mg/dL Normal 20.00-300.00 [facility] Comment on above: Performed By: #### U RTPCR #### [facility] [address] [address] [address] Dwight Waters US CAROTID ART BILon 022 US CAROTID ART ROSALINDA EXAMINATION: US CAROTID ART ROSALINDA HISTORY: Cardiovascular symptoms ; left [...] Normal [facility] FK506 (TACROLIMUS) WHOLE BLO ODon 08-17-2022 Tacrolimus (FK506), Blood 9.9 ng/mL Normal 2.0-20.0 [facility] Comment on above: Result Comment: Trou gh (immediately following transplant) 15.0 . Trough (steady state, 2 weeks or more after transplant): 3.0 - 8.0 . Performed by LC-MS/MS technology. Performed By: #### F [id number] #### [facility] [address] [place] [address] Dr. Dwight Waters BK VIRUS PCR QUANTon 022 BKV DNA QUANT PCR PLASMA Negative Normal Negative [facility] Comment on above: Result Comment: No B K DNA detected. . The linear range of the assay is 22 - 100,000,000 IU/mL. Performed By: #### U RTPCR #### [facility] [address] [place] [address] Dr. Dwight Waters Log10 BKV DNA Plasma Normal [facility] Comment on above: Performed By: #### U RTPCR #### [facility] [address] [place] [address] Dr. Dwight Waters ALBUMINon 08-14-2022 Albumin [Mass/Vol] 4.2 g/dL Normal 3.4-5.[address] [facility] Comment on above: Performed By: #### F [id number] #### [facility] [address] [place] [address] Dr. Dwight Waters ALKALINE PHOSPHAon ALP [Catalytic activity/Vol] 92 U/L Normal 46-116 [facility] Comment on above: Performed By: #### C BC #### [facility] [address] [place] [address] Dr. Dwight Waters BILIRUBIN CONJUGATED (DIRECT )on 08-14-2022 BILI, CONJUGATED 0.3 mg/dL Critically high 0.0-0.2 [facility] Comment on above: Performed By: #### F [id number] #### [facility] [address] [place] [address] Dr. Dwight Waters BILIRUBIN TOTALon 08-14-2022 Bilirubin [Mass/Vol] 1.5 mg/dL Critically high 0.2-1.0 [facility] Comment on above: Performed By: #### F [id number] #### [facility] [address] [place] [address] Dr. Dwight Waters BUNon 08-14-2022 Urea nitrogen [Mass/Vol] 11.0 mg/dL Normal 7.0-18.0 [facility] Comment on above: Performed By: #### C BC #### [facility] [address] [place] [address] Dr. Dwight Waters CALCIUMon 08-14-2022 Calcium [Mass/Vol] 9.4 mg/dL Normal 8.5-10.1 [facility] Comment on above: Performed By: #### F [id number] #### [facility] [address] [address] [address] Dwight Waters CBC AUTO DIFFon 08-14-2022 BASO # 0.0 103/ul Normal 0.0-0.1 [facility] Comment on above: Performed By: #### C MP #### [facility] [address] [address] [address] Dwight Waters Basophils/100 WBC (Bld) 0.5 % Normal 0.2-2.0 [facility] Comment on above: Performed By: #### C MP #### [facility] [address] [place] [address] Dr. Dwight Waters EO # 0.2 103/ul Normal 0.0-0.7 [facility] Comment on above: Performed By: #### C MP #### [facility] [address] [place] [address] Dr. Dwight Waters Eosinophils/100 WBC (Bld) 2.6 % Normal 0.9-7.0 [facility] Comment on above: Performed By: #### C MP #### [facility] [address] [place] [address] Dr. Dwight Waters Erythrocyte distribution width (RBC) [Ratio] 13.1 % Normal 11.0-15.0 [facility] Comment on above: Performed By: #### C MP #### [facility] [address] [place] [address] Dr. Dwight Waters Hematocrit (Bld) [Volume fraction] 47.0 % Normal 42.0-54.0 [facility] Comment on above: Performed By: #### C MP #### [facility] [address] [place] [address] Dr. Dwight Waters Hemoglobin (Bld) [Mass/Vol] 15.3 g/dL Normal 14.0-18.0 [facility] Comment on above: Performed By: #### C MP #### [facility] [address] [place] [address] Dr. Dwight Waters IG # 0.01 10e3/ul Normal 0.00-0.03 [facility] Comment on above: Performed By: #### C MP #### [facility] [address] [place] [address] Dr. Dwight Waters IG % 0.1 % Normal 0.0-0.5 [facility] Comment on above: Performed By: #### C MP #### [facility] [address] [place] [address] Dr. Dwight Waters LYMPH # 2.3 103/ul Normal 1.2-3.8 [facility] Comment on above: Performed By: #### C MP #### [facility] [address] [place] [address] Dr. Dwight Waters Lymphocytes/100 WBC (Bld) 29.8 % Normal 20.5-60.0 [facility] Comment on above: Performed By: #### C MP #### [facility] [address] [place] [address] Dr. Dwight Waters MANUAL DIFF REQ NO Normal [facility] Comment on above: Performed By: #### C MP #### [facility] [address] [place] [address] Dr. Dwight Waters MCH (RBC) [Entitic mass] 28.2 pg Normal 25.9-34.0 [facility] Comment on above: Performed By: #### C MP #### [facility] [address] [place] [address] Dr. Dwight Waters MCHC (RBC) [Mass/Vol] 32.6 g/dL Normal 29.9-35.2 [facility] Comment on above: Performed By: #### C MP #### [facility] [address] [place] [address] Dr. Dwight Waters MCV (RBC) [Entitic vol] 86.7 fL Normal 80.0-94.0 [facility] Comment on above: Performed By: #### C MP #### [facility] [address] [place] [address] Dr. Dwight Waters MONO # 0.7 103/ul Normal 0.3-0.8 [facility] Comment on above: Performed By: #### C MP #### [facility] [address] [address] [address] Dwight Waters Monocytes/100 WBC (Bld) 8.5 % Normal 1.7-12.0 [facility] Comment on above: Performed By: #### C MP #### [facility] [address] [address] [address] Dwight Waters NEUT # 4.5 103/ul Normal 1.4-6.5 [facility] Comment on above: Performed By: #### C MP #### [facility] [address] [address] [address] Dwight Waters Neutrophils/100 WBC (Bld) 58.5 % Normal 43.0-75.0 [facility] Comment on above: Performed By: #### C MP #### [facility] [address] [place] [address] Dr. Dwight Waters Platelet mean volume (Bld) [Entitic vol] 9.7 fL Normal 9.5-13.5 [facility] Comment on above: Performed By: #### C MP #### [facility] [address] [place] [address] Dr. Dwight Waters PLT 266 103/ul Normal 150-450 [facility] Comment on above: Performed By: #### C MP #### [facility] [address] [place] [address] Dr. Dwight Waters RBC 5.42 106/ul Normal 4.70-6.10 [facility] Comment on above: Performed By: #### C MP #### [facility] [address] [place] [address] Dr. Dwight Waters WBC 7.6 103/ul Normal 4.0-11.0 [facility] Comment on above: Performed By: #### C MP #### [facility] [address] [place] [address] Dr. Dwight Waters CHLORIDEon 08-14-2022 Chloride [Moles/Vol] 104 mmol/L Normal 98-107 [facility] Comment on above: Performed By: #### C BC #### [facility] [address] [place] [address] Dr. Dwight Waters CO2on 08-14-2022 CO2 [Moles/Vol] 27.9 mmol/L Normal 21.0-32.0 [facility] Comment on above: Performed By: #### C BC #### [facility] [address] [place] [address] Dr. Dwight Waters CREATININEon 08-14-2022 Creatinine [Mass/Vol] 1.08 mg/dL Normal 0.70-1.30 [facility] Comment on above: Performed By: #### C BC #### [facility] [address] [place] [address] Dr. Dwight Waters EGFR-AF [place] >60 Normal >=60 [facility] Comment on above: Performed By: #### C BC #### [facility] [address] [place] [address] Dr. Dwight Waters EGFR-NON AF [place] >60 Normal >=60 [facility] Comment on above: Performed By: #### C BC #### [facility] [address] [place] [address] Dr. Dwight Waters GGTon 08-14-2022 Gamma glutamyl transferase [Catalytic activity/Vol] 24 U/L Normal 15-85 [facility] Comment on above: Performed By: #### F [id number] #### [facility] [address] [place] [address] Dr. Dwight Waters GLUCOSE BLOODon 08-14-2022 Glucose [Mass/Vol] 111 mg/dL Critically high 74-106 [facility] Comment on above: Performed By: #### C BC #### [facility] [address] [place] [address] Dr. Dwight Waters MAGNESIUMon 08-14-2022 Magnesium [Mass/Vol] 1.4 mg/dL Critically low 1.8-2.4 [facility] Comment on above: Performed By: #### C BC #### [facility] [address] [place] [address] Dr. Dwight Waters NAon 08-14-2022 Sodium [Moles/Vol] 140 mmol/L Normal 136-[address] [facility] Comment on above: Performed By: #### F [id number] #### [facility] [address] [place] [address] Dr. Dwight Waters PHOSPHORUSon 08-14-2022 Phosphate [Mass/Vol] 3.1 mg/dL Normal 2.6-4.7 [facility] Comment on above: Performed By: #### C BC #### [facility] [address] [place] [address] Dr. Dwight Waters POTASSIUMon 08-14-2022 Potassium [Moles/Vol] 3.5 mmol/L Normal 3.5-5.1 [facility] Comment on above: Performed By: #### C BC #### [facility] [address] [place] [address] Dr. Dwight Waters SGOTon 08-14-2022 AST [Catalytic activity/Vol] 17 U/L Normal 15-37 [facility] Comment on above: Performed By: #### F [id number] #### [facility] [address] [place] [address] Dr. Dwight Waters SGPTon 08-14-2022 ALT [Catalytic activity/Vol] 22 U/L Normal 16-63 [facility] Comment on above: Performed By: #### F [id number] #### [facility] [address] [place] [address] Dr. Dwight Waters URINE T PROTEIN CREAT RATIOo n 08-14-2022 Protein (U) [Mass/Vol] 10.7 mg/dL Normal <=12.0 [facility] Comment on above: Performed By: #### F [id number] #### [facility] [address] [place] [address] Dr. Dwight Waters UR PROT CREAT RAT 0.10 Normal [facility] Comment on above: Performed By: #### F [id number] #### [facility] [address] [place] [address] Dr. Dwight Waters URINE CREAT 104.28 mg/dL Normal 20.00-300.00 [facility] Comment on above: Performed By: #### F [id number] #### [facility] [address] [address] [address] Dwight Waters NEPHROSTOMY TUBE REMOVALon 0 [...] physician present for entire procedure: yes [facility] Radiology Study observation (narrative) [facility] FK506 (TACROLIMUS) WHOLE BLO ODon 07-06-2022 Tacrolimus (FK506), Blood 9.5 ng/mL Normal 2.0-20.0 [facility] Comment on above: Result Comment: Trou gh (immediately following transplant) 15.0 . Trough (steady state, 2 weeks or more after transplant): 3.0 - 8.0 . Performed by LC-MS/MS technology. Performed By: #### C MP #### [facility] [address] [address] [address] Dwight Waters ALBUMINon 07-03-2022 Albumin [Mass/Vol] 3.7 g/dL Normal 3.4-5.0 [facility] Comment on above: Performed By: #### U RTPCR #### [facility] [address] [place] [address] Dr. Dwight Waters ALKALINE PHOSPHAon ALP [Catalytic activity/Vol] 76 U/L Normal 46-116 [facility] Comment on above: Performed By: #### U RTPCR #### [facility] [address] [place] [address] Dr. Dwight Waters BILIRUBIN CONJUGATED (DIRECT )on 07-03-2022 BILI, CONJUGATED 0.3 mg/dL Critically high 0.0-0.2 [facility] Comment on above: Performed By: #### C BC #### [facility] [address] [place] [address] Dr. Dwight Waters BILIRUBIN TOTALon 07-03-2022 Bilirubin [Mass/Vol] 1.4 mg/dL Critically high 0.2-1.0 [facility] Comment on above: Performed By: #### C BC #### [facility] [address] [place] [address] Dr. Dwight Waters BUNon 07-03-2022 Urea nitrogen [Mass/Vol] 15.0 mg/dL Normal 7.0-18.0 [facility] Comment on above: Performed By: #### C BC #### [facility] [address] [place] [address] Dr. Dwight Waters CALCIUMon 07-03-2022 Calcium [Mass/Vol] 9.4 mg/dL Normal 8.5-10.1 [facility] Comment on above: Performed By: #### U RTPCR #### [facility] [address] [place] [address] Dr. Dwight Waters CBC AUTO DIFFon 07-03-2022 BASO # 0.0 103/ul Normal 0.0-0.1 [facility] Comment on above: Performed By: #### U RTPCR #### [facility] [address] [place] [address] Dr. Dwight Waters Basophils/100 WBC (Bld) 0.6 % Normal 0.2-2.0 [facility] Comment on above: Performed By: #### U RTPCR #### [facility] [address] [place] [address] Dr. Dwight Waters EO # 0.2 103/ul Normal 0.0-0.7 [facility] Comment on above: Performed By: #### U RTPCR #### [facility] [address] [place] [address] Dr. Dwight Waters Eosinophils/100 WBC (Bld) 3.5 % Normal 0.9-7.0 [facility] Comment on above: Performed By: #### U RTPCR #### [facility] [address] [place] [address] Dr. Dwight Waters Erythrocyte distribution width (RBC) [Ratio] 12.9 % Normal 11.0-15.0 [facility] Comment on above: Performed By: #### U RTPCR #### [facility] [address] [place] [address] Dr. Dwight Waters Hematocrit (Bld) [Volume fraction] 44.2 % Normal 42.0-54.0 [facility] Comment on above: Performed By: #### U RTPCR #### [facility] [address] [place] [address] Dr. Dwight Waters Hemoglobin (Bld) [Mass/Vol] 14.6 g/dL Normal 14.0-18.0 [facility] Comment on above: Performed By: #### U RTPCR #### [facility] [address] [place] [address] Dr. Dwight Waters IG # 0.02 10e3/ul Normal 0.00-0.03 [facility] Comment on above: Performed By: #### U RTPCR #### [facility] [address] [place] [address] Dr. Dwight Waters IG % 0.3 % Normal 0.0-0.5 [facility] Comment on above: Performed By: #### U RTPCR #### [facility] [address] [place] [address] Dr. Dwight Waters LYMPH # 2.0 103/ul Normal 1.2-3.8 [facility] Comment on above: Performed By: #### U RTPCR #### [facility] [address] [address] [address] Dwight Waters Lymphocytes/100 WBC (Bld) 28.4 % Normal 20.5-60.0 [facility] Comment on above: Performed By: #### U RTPCR #### [facility] [address] [place] [address] Dr. Dwight Waters MANUAL DIFF REQ NO Normal [facility] Comment on above: Performed By: #### U RTPCR #### [facility] [address] [place] [address] Dr. Dwight Waters MCH (RBC) [Entitic mass] 28.6 pg Normal 25.9-34.0 [facility] Comment on above: Performed By: #### U RTPCR #### [facility] [address] [place] [address] Dr. Dwight Waters MCHC (RBC) [Mass/Vol] 33.0 g/dL Normal 29.9-35.2 [facility] Comment on above: Performed By: #### U RTPCR #### [facility] [address] [place] [address] Dr. Dwight Waters MCV (RBC) [Entitic vol] 86.7 fL Normal 80.0-94.0 [facility] Comment on above: Performed By: #### U RTPCR #### [facility] [address] [place] [address] Dr. Dwight Waters MONO # 0.6 103/ul Normal 0.3-0.8 [facility] Comment on above: Performed By: #### U RTPCR #### [facility] [address] [place] [address] Dr. Dwight Waters Monocytes/100 WBC (Bld) 9.1 % Normal 1.7-12.0 [facility] Comment on above: Performed By: #### U RTPCR #### [facility] [address] [place] [address] Dr. Dwight Waters NEUT # 4.0 103/ul Normal 1.4-6.5 [facility] Comment on above: Performed By: #### U RTPCR #### [facility] [address] [address] [address] Dwight Waters Neutrophils/100 WBC (Bld) 58.1 % Normal 43.0-75.0 [facility] Comment on above: Performed By: #### U RTPCR #### [facility] [address] [address] [address] Dwight Waters Platelet mean volume (Bld) [Entitic vol] 9.5 fL Normal 9.5-13.5 [facility] Comment on above: Performed By: #### U RTPCR #### [facility] [address] [address] [address] Dwight Waters PLT 292 103/ul Normal 150-450 [facility] Comment on above: Performed By: #### U RTPCR #### [facility] [address] [place] [address] Dr. Dwight Waters RBC 5.10 106/ul Normal 4.70-6.10 [facility] Comment on above: Performed By: #### U RTPCR #### [facility] [address] [address] [address] Dwight Waters WBC 6.9 103/ul Normal 4.0-11.0 [facility] Comment on above: Performed By: #### U RTPCR #### [facility] [address] [address] [address] Dwight Waters CHLORIDEon 07-03-2022 Chloride [Moles/Vol] 108 mmol/L Critically high 98-107 [facility] Comment on above: Performed By: #### C BC #### [facility] [address] [address] [address] Dwight Waters CO2on 07-03-2022 CO2 [Moles/Vol] 25.2 mmol/L Normal 21.0-32.0 [facility] Comment on above: Performed By: #### C BC #### [facility] [address] [address] [address] Dwight Waters CREATININEon 07-03-2022 Creatinine [Mass/Vol] 1.03 mg/dL Normal 0.70-1.30 [facility] Comment on above: Performed By: #### U RTPCR #### [facility] [address] [place] [address] Dr. Dwight Waters EGFR-AF [place] >60 Normal >=60 [facility] Comment on above: Performed By: #### U RTPCR #### [facility] [address] [place] [address] Dr. Dwight Waters EGFR-NON AF [place] >60 Normal >=60 [facility] Comment on above: Performed By: #### U RTPCR #### [facility] [address] [place] [address] Dr. Dwight Waters GGTon 07-03-2022 Gamma glutamyl transferase [Catalytic activity/Vol] 31 U/L Normal 15-85 [facility] Comment on above: Performed By: #### U RTPCR #### [facility] [address] [place] [address] Dr. Dwight Waters GLUCOSE BLOODon 07-03-2022 Glucose [Mass/Vol] 119 mg/dL Critically high 74-106 [facility] Comment on above: Performed By: #### U RTPCR #### [facility] [address] [place] [address] Dr. Dwight Waters MAGNESIUMon 07-03-2022 Magnesium [Mass/Vol] 1.4 mg/dL Critically low 1.8-2.4 [facility] Comment on above: Performed By: #### C BC #### [facility] [address] [place] [address] Dr. Dwight Waters NAon 07-03-2022 Sodium [Moles/Vol] 142 mmol/L Normal 136-[address] [facility] Comment on above: Performed By: #### C MP #### [facility] [address] [place] [address] Dr. Dwight Waters PHOSPHORUSon 07-03-2022 Phosphate [Mass/Vol] 3.4 mg/dL Normal 2.6-4.7 [facility] Comment on above: Performed By: #### C BC #### [facility] [address] [address] [address] Dwight Waters POTASSIUMon 07-03-2022 Potassium [Moles/Vol] 4.1 mmol/L Normal 3.5-5.1 [facility] Comment on above: Performed By: #### C BC #### [facility] [address] [place] [address] Dr. Dwight Waters SGOTon 07-03-2022 AST [Catalytic activity/Vol] 14 U/L Critically low 15-37 [facility] Comment on above: Performed By: #### C BC #### [facility] [address] [address] [address] Dwight Waters SGPTon 07-03-2022 ALT [Catalytic activity/Vol] 25 U/L Normal 16-63 [facility] Comment on above: Performed By: #### C BC #### [facility] [address] [place] [address] Dr. Dwight Waters US KIDNEYSon 07-03-2022 US KIDNEYS Ultrasound kidneys, bilateral HISTORY: Transplant of kidney , pain in the right lower quadrant COMPARISON: None. TECHNIQUE: Transabdominal ultrasound imaging of both kidneys was performed. FINDINGS: The [place] kidneys are diffusely echogenic and atrophic with cortical thinning. The right kidney measures 8.3 x 3.5 x 4.07 m and the left measures 9.9 x 3.8 x 3.6 cm. No hydronephrosis of the [place] kidneys. There is a renal transplant in [...] stone involving the renal transplant. 2. Atrophic [place] kidneys. 3. Normal bladder. Electronically authenticated by: ARCELIA PIZARRO Date: 2022-07-03 17:22 Normal [facility] CT Abdomen and Pelvis WO con traston 06-27-2022 IMPRESSION: 1. Both [place] kidneys are atrophic with improvement in right-sided hydronephrosis since May 15, 2022. 2. 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 No hydronephrosis. No discrete perinephric collection. 3. Partially imaged postsurgical changes related to prior liver transplant. 4. The bladder is decompressed, limiting evaluation. OLOGY EXAM: CT ABDOMEN/PELVIS WITHOUT CONTRAST, 06/27/2022 11:59 [...] Adrenals: Adrenal glands are unremarkable. Kidneys: Both [place] kidneys are atrophic. Interval improvement in right [place] kidney hydronephrosis since May 15, 2022. Status post right iliac fossa transplant kidney. Percutaneous nephrostomy tube in place. No hydronephrosis.. Retroperitoneal/Vascul ature: No retroperitoneal adenopathy is identified. Atherosclerotic disease of the abdominal aorta and its branches. Gastrointestinal/Mesen carlene: The bowel loops are non-dilated without wall [...] Adrenals: Adrenal glands are unremarkable. Kidneys: Both [place] kidneys are atrophic. Interval improvement in right [place] kidney hydronephrosis since May 15, 2022. Status post right iliac fossa transplant kidney. Percutaneous nephrostomy tube in place. No hydronephrosis.. Retroperitoneal/Vascul ature: No retroperitoneal adenopathy is identified. Atherosclerotic disease of the abdominal aorta and its branches. Gastrointestinal/Mesen carlene: The bowel loops are non-dilated without wall thickening or mass. The appendix is normal. Scattered sigmoid colon diverticulosis without evidence of acute diverticulitis. PELVIS Bladder: The bladder is decompressed, limiting evaluation. Genital: The prostate and seminal vesicles are unremarkable. Other: Small bilateral fat-containing inguinal hernias. Bony Structures: Multilevel degenerative changes of the spine. No aggressive osseous lesions. IMPRESSION IMPRESSION: 1. Both [place] kidneys are atrophic with improvement in right-sided hydronephrosis since May 15, 2022. 2. 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 No hydronephrosis. No discrete perinephric collection. 3. Partially imaged postsurgical changes related to prior liver transplant. 4. The bladder is decompressed, limiting evaluation. [facility] Radiology Study observation (narrative) [facility] CT Abdomen and Pelvis WO con trastOrdered By: Gera Lu on 06-27-2022 [facility] Work Phone: CBC AUTO DIFFon 06-18-2022 BASO # 0.0 103/ul Normal 0.0-0.1 [facility] Comment on above: Performed By: #### U RTPCR #### [facility] [address] [place] [address] Dr. Dwight Waters Basophils/100 WBC (Bld) 0.5 % Normal 0.2-2.0 [facility] Comment on above: Performed By: #### U RTPCR #### [facility] [address] [place] [address] Dr. Dwight Waters EO # 0.2 103/ul Normal 0.0-0.7 [facility] Comment on above: Performed By: #### U RTPCR #### [facility] [address] [place] [address] Dr. Dwight Waters Eosinophils/100 WBC (Bld) 2.3 % Normal 0.9-7.0 [facility] Comment on above: Performed By: #### U RTPCR #### [facility] [address] [place] [address] Dr. Dwight Waters Erythrocyte distribution width (RBC) [Ratio] 12.9 % Normal 11.0-15.0 [facility] Comment on above: Performed By: #### U RTPCR #### [facility] [address] [place] [address] Dr. Dwight Waters Hematocrit (Bld) [Volume fraction] 41.2 % Critically low 42.0-54.0 [facility] Comment on above: Performed By: #### U RTPCR #### [facility] [address] [place] [address] Dr. Dwight Waters Hemoglobin (Bld) [Mass/Vol] 13.3 g/dL Critically low 14.0-18.0 [facility] Comment on above: Performed By: #### U RTPCR #### [facility] [address] [place] [address] Dr. Dwight Waters IG # 0.04 10e3/ul Critically high 0.00-0.03 [facility] Comment on above: Performed By: #### U RTPCR #### [facility] [address] [place] [address] Dr. Dwight Waters IG % 0.5 % Normal 0.0-0.5 [facility] Comment on above: Performed By: #### U RTPCR #### [facility] [address] [place] [address] Dr. Dwight Waters LYMPH # 2.0 103/ul Normal 1.2-3.8 [facility] Comment on above: Performed By: #### U RTPCR #### [facility] [address] [place] [address] Dr. Dwight Waters Lymphocytes/100 WBC (Bld) 22.9 % Normal 20.5-60.0 [facility] Comment on above: Performed By: #### U RTPCR #### [facility] [address] [place] [address] Dr. Dwight Waters MANUAL DIFF REQ NO Normal [facility] Comment on above: Performed By: #### U RTPCR #### [facility] [address] [place] [address] Dr. Dwight Waters MCH (RBC) [Entitic mass] 28.7 pg Normal 25.9-34.0 [facility] Comment on above: Performed By: #### U RTPCR #### [facility] [address] [place] [address] Dr. Dwight Waters MCHC (RBC) [Mass/Vol] 32.3 g/dL Normal 29.9-35.2 [facility] Comment on above: Performed By: #### U RTPCR #### [facility] [address] [place] [address] Dr. Dwight Waters MCV (RBC) [Entitic vol] 88.8 fL Normal 80.0-94.0 [facility] Comment on above: Performed By: #### U RTPCR #### [facility] [address] [place] [address] Dr. Dwight Waters MONO # 0.8 103/ul Normal 0.3-0.8 [facility] Comment on above: Performed By: #### U RTPCR #### [facility] [address] [place] [address] Dr. Dwight Waters Monocytes/100 WBC (Bld) 9.7 % Normal 1.7-12.0 [facility] Comment on above: Performed By: #### U RTPCR #### [facility] [address] [place] [address] Dr. Dwight Waters NEUT # 5.6 103/ul Normal 1.4-6.5 [facility] Comment on above: Performed By: #### U RTPCR #### [facility] [address] [place] [address] Dr. Dwight Waters Neutrophils/100 WBC (Bld) 64.1 % Normal 43.0-75.0 [facility] Comment on above: Performed By: #### U RTPCR #### [facility] [address] [place] [address] Dr. Dwight Waters Platelet mean volume (Bld) [Entitic vol] 10.0 fL Normal 9.5-13.5 [facility] Comment on above: Performed By: #### U RTPCR #### [facility] [address] [place] [address] Dr. Dwight Waters PLT 270 103/ul Normal 150-450 [facility] Comment on above: Performed By: #### U RTPCR #### [facility] [address] [place] [address] Dr. Dwight Waters RBC 4.64 106/ul Critically low 4.70-6.10 [facility] Comment on above: Performed By: #### U RTPCR #### [facility] [address] [place] [address] Dr. Dwight Waters WBC 8.7 103/ul Normal 4.0-11.0 [facility] Comment on above: Performed By: #### U RTPCR #### [facility] [address] [place] [address] Dr. Dwight Waters CULTURE URINEon 06-18-2022 CULTURE URINE Culture Observations : NO GROWTH. Normal [facility] Comment on above: Performed By: #### U RTPCR #### [facility] [address] [place] [address] Dr. Dwight Waters Covid-19 PCR (CVDTB)on 05-31 SARS-CoV-2 (COVID-19) RNA ESTELITA+probe Ql (Unsp spec) Not detected Normal NOT DETECTED [facility] Comment on above: Result Comment: When diagnostic [...] for this test is supported by the [employer] of [employer]'s declaration that [...] BC #### [facility] [address] [place] [address] Dr. Dwight Waters ER URINE PROFILEon Bilirubin Ql (U) Negative Normal NEGATIVE [facility] Comment on above: Performed By: #### U RTPCR #### [facility] [address] [place] [address] Dr. Dwight Waters Clarity (U) CLEAR Normal CLEAR [facility] Comment on above: Performed By: #### U RTPCR #### [facility] [address] [place] [address] Dr. Dwight Waters Color (U) YELLOW Normal YELLOW [facility] Comment on above: Performed By: #### U RTPCR #### [facility] [address] [place] [address] Dr. Dwight NGUYENAHJenna A micrscopic examination will be performed if indicated. Normal [facility] Comment on above: Performed By: #### U RTPCR #### [facility] [address] [place] [address] Dr. Dwight Waters Glucose Ql (U) Negative Normal NEGATIVE [facility] Comment on above: Performed By: #### U RTPCR #### [facility] [address] [place] [address] Dr. Dwight Waters Hemoglobin Ql (U) LARGE Abnormal NEGATIVE [facility] Comment on above: Performed By: #### U RTPCR #### [facility] [address] [place] [address] Dr. Dwight Waters Ketones Ql (U) Negative Normal NEGATIVE [facility] Comment on above: Performed By: #### U RTPCR #### [facility] [address] [place] [address] Dr. Dwight Waters LEUKOCYTES TRACE Abnormal NEGATIVE [facility] Comment on above: Performed By: #### U RTPCR #### [facility] [address] [place] [address] Dr. Dwight Waters Nitrite Ql (U) Negative Normal NEGATIVE [facility] Comment on above: Performed By: #### U RTPCR #### [facility] [address] [place] [address] Dr. Dwight Waters pH (U) 6.0 [pH] Normal 5-9 [facility] Comment on above: Performed By: #### U RTPCR #### [facility] [address] [place] [address] Dr. Dwight Waters Protein (U) [Mass/Vol] 30 mg/dL Abnormal NEGAT MAYUR/ TRACE [facility] Comment on above: Performed By: #### U RTPCR #### [facility] [address] [place] [address] Dr. Dwight Waters SPEC GRAVITY >=1.030 Abnormal 1.005-<=1.025 [facility] Comment on above: Performed By: #### U RTPCR #### [facility] [address] [place] [address] Dr. Dwight Waters UR MICRO IND INDICATED Normal [facility] Comment on above: Performed By: #### U RTPCR #### [facility] [address] [place] [address] Dr. Dwight Waters Urobilinogen Qn (U) 0.2 {Alyssa'U}/dL Normal 0.2 - 1. 0 [facility] Comment on above: Performed By: #### U RTPCR #### [facility] [address] [place] [address] Dr. Dwight Waters PROF 14(COMP METB)on 022 Albumin [Mass/Vol] 3.7 g/dL Normal 3.4-5.[address] [facility] Comment on above: Performed By: #### C MP #### [facility] [address] [place] [address] Dr. Dwight Waters Albumin/Globulin [Mass ratio] 0.9 {ratio} Normal [facility] Comment on above: Performed By: #### C MP #### [facility] [address] [place] [address] Dr. Dwight Waetrs ALP [Catalytic activity/Vol] 80 U/L Normal 46-116 [facility] Comment on above: Performed By: #### C MP #### [facility] [address] [place] [address] Dr. Dwight Waters ALT [Catalytic activity/Vol] 24 U/L Normal 16-63 [facility] Comment on above: Performed By: #### C MP #### [facility] [address] [place] [address] Dr. Dwight Waters Anion gap [Moles/Vol] 12.9 mmol/L Normal [facility] Comment on above: Performed By: #### C MP #### [facility] [address] [place] [address] Dr. Dwight Waters AST [Catalytic activity/Vol] 17 U/L Normal 15-37 [facility] Comment on above: Performed By: #### C MP #### [facility] [address] [place] [address] Dr. Dwight Waters Bilirubin [Mass/Vol] 0.8 mg/dL Normal 0.2-1.0 [facility] Comment on above: Performed By: #### C MP #### [facility] [address] [address] [address] Dwight Waters Calcium [Mass/Vol] 9.4 mg/dL Normal 8.5-10.[address] [facility] Comment on above: Performed By: #### C MP #### [facility] [address] [address] [address] Dwight Waters Chloride [Moles/Vol] 106 mmol/L Normal 98-107 [facility] Comment on above: Performed By: #### C MP #### [facility] [address] [address] [address] Dwight Waters CO2 [Moles/Vol] 25.3 mmol/L Normal 21.0-32.0 [facility] Comment on above: Performed By: #### C MP #### [facility] [address] [place] [address] Dr. Dwight Waters Creatinine [Mass/Vol] 1.29 mg/dL Normal 0.70-1.30 [facility] Comment on above: Performed By: #### C MP #### [facility] [address] [place] [address] Dr. Dwight Waters EGFR-AF [place] >60 Normal >=60 [facility] Comment on above: Performed By: #### C MP #### [facility] [address] [address] [address] Dwight Waters EGFR-NON AF [place] 59 mL/min/1.73m2 Critically low >=60 [facility] Comment on above: Performed By: #### C MP #### [facility] [address] [address] [address] Dwight Waters Globulin (S) [Mass/Vol] 4.2 g/dL Normal [facility] Comment on above: Performed By: #### C MP #### [facility] 03 [place] [address] Dr. Dwight Waters Glucose [Mass/Vol] 106 mg/dL Normal 74-106 [facility] Comment on above: Performed By: #### C MP #### [facility] [address] [place] [address] Dr. Dwight Waters Potassium [Moles/Vol] 4.2 mmol/L Normal 3.5-5.1 [facility] Comment on above: Performed By: #### C MP #### [facility] [address] [place] [address] Dr. Dwight Waters Protein [Mass/Vol] 7.9 g/dL Normal 6.4-8.2 [facility] Comment on above: Performed By: #### C MP #### [facility] [address] [place] [address] Dr. Dwight Waters Sodium [Moles/Vol] 140 mmol/L Normal 136-[address] [facility] Comment on above: Performed By: #### C MP #### [facility] [address] [place] [address] Dr. Dwight Waters Urea nitrogen [Mass/Vol] 22.0 mg/dL Critically high 7.0-18.0 [facility] Comment on above: Performed By: #### C MP #### [facility] [address] [place] [address] Dr. Dwight Waters Urea nitrogen/Creatinine [Mass ratio] 17.1 mg/mg Normal [facility] Comment on above: Performed By: #### C MP #### [facility] [address] [place] [address] Dr. Dwight Waters URINE MICROSCOPIC ONLYon BACTERIA TRACE Abnormal NONE SEEN [facility] Comment on above: Performed By: #### U RTPCR #### [facility] [address] [place] [address] Dr. Dwight Waters Bacteria identified Cx Nom (U) INDICATED Normal [facility] Comment on above: Performed By: #### U RTPCR #### [facility] [address] [place] [address] Dr. Dwight Waters CAST NONE SEEN Normal NONE SEEN [facility] Comment on above: Performed By: #### U RTPCR #### [facility] [address] [place] [address] Dr. Dwight Waters Crystals LM Nom (Urine sed) NONE SEEN Normal NONE SEEN [facility] Comment on above: Performed By: #### U RTPCR #### [facility] [address] [place] [address] Dr. Dwight Waters Epithelial cells LM Ql (Urine sed) NONE SEEN Normal NONE SEEN /RARE [facility] Comment on above: Performed By: #### U RTPCR #### [facility] [address] [place] [address] Dr. Dwight Waters MUCOUS NONE SEEN Normal NONE SEEN [facility] Comment on above: Performed By: #### U RTPCR #### [facility] [address] [place] [address] Dr. Dwight Waters RBC 5-10 Abnormal 0-2 [facility] Comment on above: Performed By: #### U RTPCR #### [facility] [address] [place] [address] Dr. Dwight Waters WBC 10-20 Abnormal NONE SEEN [facility] Comment on above: Performed By: #### U RTPCR #### [facility] [address] [place] [address] Dr. Dwight Waters ALLOSCREEN RECIPIENT (POST T X PRA)on 06-13-2022 AB SPECIFICITY CLASS COMMENT Antibody Specificity testing performed by [employer]. cPRA calculation based on identification of HLA antibody specificities at MFI >2000 and/or presence of CREG antibodies. [facility] Comment on above: Some of the reagents used for testing in the Clinical Histocompatibility Laboratory have yet to be approved by the FDA. Our certification by CLIA to perform high complexity tests allows us to use these reagents in the context of a stringent QC program, and obviates the need for FDA approval.Testing performed by the [facility] Clinical Histocompatibility Laboratory. [facility] number: [id number]. CLIA number: [id number], Director: Carlito Merchant, PhD, D([facility]). ANTIBODY SPECIFICITY INTERPRETATION Detected [facility] CLASS I SPECIFICITIES Not detected [facility] CLASS II SPECIFICITIES Not detected [facility] HLA Ab (S) 0 % 0 [facility] EXTRA MICROon 06-13-2022 [facility] URINE CULTUREOrdered By: Jah Upton on 06-13-2022 Bacteria identified Cx Nom (Unsp spec) Growth [facility] Bacteria identified Cx Nom (Unsp spec) 10,000-50,000 CFU/mL Mixed skin shimon [facility] Comment on above: Multiple bacterial m orphotypes present. Suggest appropriate recollection if clinically indicated. [facility] CBC,PLATELETSon 06-12-2022 Erythrocyte distribution width (RBC) [Ratio] 13.0 % 10.9 - 14.3 % [facility] Hematocrit (Bld) [Volume fraction] 43.2 % 39.6 - 48.8 % [facility] Hemoglobin (Bld) [Mass/Vol] 13.9 g/dL 13.4 - 16.8 g/dL [facility] Interpretation and review of laboratory results Normal [facility] MCH (RBC) [Entitic mass] 28.7 pg 26.1 - 33.3 pg [facility] MCHC (RBC) [Mass/Vol] 32.2 g/dL 31.9 - 36.5 g/dL [facility] MCV (RBC) [Entitic vol] 89.1 fL 79.0 - 94.5 fL [facility] Platelet mean volume (Bld) [Entitic vol] 10.5 fL 8.7 - 12.3 fL [facility] Platelets (Bld) [#/Vol] 269 10*3/uL 146 - 337 K/uL [facility] RBC (Bld) [#/Vol] 4.85 10*6/uL [facility] WBC (Bld) [#/Vol] 7.68 10*3/uL 3.73 - 10. 10 K/uL [facility] CHEM 7 (LYTES,BUN,CREA,GLUC) on 06-12-2022 Anion gap [Moles/Vol] 14 mmol/L 7 - 17 mmol/L [facility] Chloride [Moles/Vol] 106 mmol/L 98 - 10 8 mmol/L [facility] CO2 [Moles/Vol] 25 mmol/L 21 - 31 mmol/L [facility] Creatinine [Mass/Vol] 1.26 mg/dL 0.70 - 1.30 mg/dL [facility] GFR/1.73 sq M.predicted CKD-EPI (S/P/Bld) [Vol rate/Area] 69 >=60 mL/min/1.73m2 [facility] Comment on above: Reported eGFR is bas ed on the CKD-EPI 2020 equation using creatinine, age, and sex. Glucose [Mass/Vol] 83 mg/dL 70 - 99 mg/dL [facility] Osmolality Calc [Osmolality] 295 [facility] Potassium [Moles/Vol] 3.8 mmol/L 3.5 - 5.0 mmol/L [facility] Sodium [Moles/Vol] 141 mmol/L 135 - 145 mmol/L [facility] Urea nitrogen [Mass/Vol] 18 mg/dL 7 - 25 mg/dL [facility] Urea nitrogen/Creatinine [Mass ratio] 14 mg/mg [facility] GGTon 06-12-2022 Gamma glutamyl transferase [Catalytic activity/Vol] 20 U/L 8 - 64 U/L [facility] HEMOGLOBIN [id number] By: Link Roche on 06-12-2022 Average glucose Estimated from glycated hemoglobin (Bld) [Mass/Vol] 126 mg/dL [facility] HbA1c (Bld) [Mass fraction] 6.0 % High 4.7 - 5.6 % [facility] Interpretation and review of laboratory results Abnormal [facility] HEPATIC FUNCTION PANELon Albumin [Mass/Vol] 4.3 g/dL 3.5 - 5.0 g/dL [facility] ALP [Catalytic activity/Vol] 78 U/L 32 - 126 U/L [facility] ALT [Catalytic activity/Vol] 12 U/L 10 - 52 U/L [facility] AST [Catalytic activity/Vol] 16 U/L 10 - 39 U/L [facility] Bilirubin [Mass/Vol] 1.0 mg/dL <1.5 [facility] Bilirubin.direct [Mass/Vol] 0.2 mg/dL <0.3 [facility] Protein [Mass/Vol] 7.5 g/dL 6.4 - 8.3 g/dL [facility] No Panel Informationon 06-12 Interpretation and review of laboratory results Normal [facility] PTH INTACTOrdered By: Marli Lizarraga on 06-12-2022 Interpretation and review of laboratory results Abnormal [facility] Parathyrin.intact [Mass/Vol] 79.7 pg/mL High 14.0 - 72.0 pg/mL [facility] URINALYSIS REFLEX TO CULTURE PERFORMABLEon 06-12-2022 Appearance (U) Clear Clear [facility] Bacteria LM Ql (Urine sed) ABSENT ABSENT [facility] Color (U) Yellow Yellow [facility] Epithelial cells.squamous LM Ql (Urine sed) 1/hpf = 1+ 1/hpf = 1+, 2-5/hpf = 2+, 0/hpf = 0+, ABSENT [facility] Glucose Test strip (U) [Mass/Vol] Negative Negative [facility] Interpretation and review of laboratory results Abnormal [facility] Ketones (U) [Mass/Vol] Trace Abnormal Negative [facility] Leukocyte esterase Test strip Ql (U) Small Abnormal Negative [facility] Nitrite Ql (U) Negative Negative [facility] pH (U) 5.5 [pH] 5.0 - 7.0 [facility] Protein (U) [Mass/Vol] 30 mg/dL Abnormal Negative [facility] RBC (U) [#/Vol] Trace Abnormal Negative [facility] RBC LM.HPF (Urine sed) [#/Area] 0-2 0 - 2 /HPF [facility] Specific gravity (U) [Rel density] 1.026 [facility] Urobilinogen (U) [Mass/Vol] 0.2 E.U./dL 0.2 E.U/dL, 1.0 E.U/dL [facility] WBC LM.HPF (Urine sed) [#/Area] 10-20 Abnormal 0 - 5 /HPF [facility] URINE PROTEIN/CREA RATIO, RA NDOMon 06-12-2022 Creatinine (24H U) [Mass/Vol] 231.68 mg/dL [facility] Protein Unsp time (U) [Mass/Vol] 49 mg/dL [facility] Protein/Creatinine (U) [Mass ratio] 0.211 mg/g [facility] FK506 (TACROLIMUS) WHOLE BLO ODon 06-09-2022 Tacrolimus (FK506), Blood 9.8 ng/mL Normal 2.0-20.0 [facility] Comment on above: Result Comment: Trou gh (immediately following transplant) 15.0 . Trough (steady state, 2 weeks or more after transplant): 3.0 - 8.0 . Performed by LC-MS/MS technology. Performed By: #### U RTPCR #### [facility] [address] [address] [address] Dwight Waters ALBUMINon 06-06-2022 Albumin [Mass/Vol] 3.8 g/dL Normal 3.4-5.[address] [facility] Comment on above: Performed By: #### C MP #### [facility] [address] [address] [address] Dwight Waters ALKALINE PHOSPHAon ALP [Catalytic activity/Vol] 82 U/L Normal 46-116 [facility] Comment on above: Performed By: #### C MP #### [facility] [address] [address] [address] Dwight Waters BILIRUBIN CONJUGATED (DIRECT )on 06-06-2022 BILI, CONJUGATED 0.2 mg/dL Normal 0.0-0.2 [facility] Comment on above: Performed By: #### C BC #### [facility] [address] [address] [address] Dwight Waters BILIRUBIN TOTALon 06-06-2022 Bilirubin [Mass/Vol] 1.0 mg/dL Normal 0.2-1.0 [facility] Comment on above: Performed By: #### C BC #### [facility] [address] [place] [address] Dr. Dwight Waters BUNon 06-06-2022 Urea nitrogen [Mass/Vol] 18.0 mg/dL Normal 7.0-18.0 [facility] Comment on above: Performed By: #### C BC #### [facility] [address] [place] [address] Dr. Dwight Waters CALCIUMon 06-06-2022 Calcium [Mass/Vol] 9.4 mg/dL Normal 8.5-10.[address] [facility] Comment on above: Performed By: #### C MP #### [facility] [address] [place] [address] Dr. Dwight Waters CBC AUTO DIFFon 06-06-2022 BASO # 0.1 103/ul Normal 0.0-0.1 [facility] Comment on above: Performed By: #### U RTPCR #### [facility] [address] [place] [address] Dr. Dwight Waters Basophils/100 WBC (Bld) 0.8 % Normal 0.2-2.0 [facility] Comment on above: Performed By: #### U RTPCR #### [facility] [address] [place] [address] Dr. Dwight Waters EO # 0.3 103/ul Normal 0.0-0.7 [facility] Comment on above: Performed By: #### U RTPCR #### [facility] [address] [place] [address] Dr. Dwight Waters Eosinophils/100 WBC (Bld) 3.3 % Normal 0.9-7.0 [facility] Comment on above: Performed By: #### U RTPCR #### [facility] [address] [place] [address] Dr. Dwight Waters Erythrocyte distribution width (RBC) [Ratio] 12.4 % Normal 11.0-15.0 [facility] Comment on above: Performed By: #### U RTPCR #### [facility] [address] [place] [address] Dr. Dwight Waters Hematocrit (Bld) [Volume fraction] 45.1 % Normal 42.0-54.0 [facility] Comment on above: Performed By: #### U RTPCR #### [facility] [address] [place] [address] Dr. Dwight Waters Hemoglobin (Bld) [Mass/Vol] 14.4 g/dL Normal 14.0-18.0 [facility] Comment on above: Performed By: #### U RTPCR #### [facility] [address] [place] [address] Dr. Dwight Waters IG # 0.01 10e3/ul Normal 0.00-0.03 [facility] Comment on above: Performed By: #### U RTPCR #### [facility] [address] [place] [address] Dr. Dwight Waters IG % 0.1 % Normal 0.0-0.5 [facility] Comment on above: Performed By: #### U RTPCR #### [facility] [address] [place] [address] Dr. Dwight Waters LYMPH # 2.2 103/ul Normal 1.2-3.8 [facility] Comment on above: Performed By: #### U RTPCR #### [facility] [address] [place] [address] Dr. Dwight Waters Lymphocytes/100 WBC (Bld) 30.0 % Normal 20.5-60.0 [facility] Comment on above: Performed By: #### U RTPCR #### [facility] [address] [place] [address] Dr. Dwight Waters MANUAL DIFF REQ NO Normal [facility] Comment on above: Performed By: #### U RTPCR #### [facility] [address] [place] [address] Dr. Dwight Waters MCH (RBC) [Entitic mass] 28.2 pg Normal 25.9-34.0 [facility] Comment on above: Performed By: #### U RTPCR #### [facility] [address] [address] [address] Dwight Waters MCHC (RBC) [Mass/Vol] 31.9 g/dL Normal 29.9-35.2 [facility] Comment on above: Performed By: #### U RTPCR #### [facility] [address] [place] [address] Dr. Dwight Waters MCV (RBC) [Entitic vol] 88.3 fL Normal 80.0-94.0 [facility] Comment on above: Performed By: #### U RTPCR #### [facility] [address] [place] [address] Dr. Dwight Waters MONO # 0.6 103/ul Normal 0.3-0.8 [facility] Comment on above: Performed By: #### U RTPCR #### [facility] [address] [place] [address] Dr. Dwight Waters Monocytes/100 WBC (Bld) 8.2 % Normal 1.7-12.0 [facility] Comment on above: Performed By: #### U RTPCR #### [facility] [address] [place] [address] Dr. Dwight Waters NEUT # 4.3 103/ul Normal 1.4-6.5 [facility] Comment on above: Performed By: #### U RTPCR #### [facility] [address] [place] [address] Dr. Dwight Waters Neutrophils/100 WBC (Bld) 57.6 % Normal 43.0-75.0 [facility] Comment on above: Performed By: #### U RTPCR #### [facility] [address] [place] [address] Dr. Dwight Waters Platelet mean volume (Bld) [Entitic vol] 9.7 fL Normal 9.5-13.5 [facility] Comment on above: Performed By: #### U RTPCR #### [facility] [address] [place] [address] Dr. Dwight Waters PLT 297 103/ul Normal 150-450 [facility] Comment on above: Performed By: #### U RTPCR #### [facility] [address] [place] [address] Dr. Dwight Waters RBC 5.11 106/ul Normal 4.70-6.10 [facility] Comment on above: Performed By: #### U RTPCR #### [facility] [address] [place] [address] Dr. Dwight Waters WBC 7.5 103/ul Normal 4.0-11.0 [facility] Comment on above: Performed By: #### U RTPCR #### [facility] [address] [place] [address] Dr. Dwight Waters CHLORIDEon 06-06-2022 Chloride [Moles/Vol] 107 mmol/L Normal 98-107 [facility] Comment on above: Performed By: #### C BC #### [facility] [address] [place] [address] Dr. Dwight Waters CO2on 06-06-2022 CO2 [Moles/Vol] 27.4 mmol/L Normal 21.0-32.0 [facility] Comment on above: Performed By: #### C BC #### [facility] [address] [place] [address] Dr. Dwight Waters CREATININEon 06-06-2022 Creatinine [Mass/Vol] 1.20 mg/dL Normal 0.70-1.30 [facility] Comment on above: Performed By: #### C BC #### [facility] [address] [place] [address] Dr. Dwight Waters EGFR-AF [place] >60 Normal >=60 [facility] Comment on above: Performed By: #### C BC #### [facility] [address] [place] [address] Dr. Dwight Waters EGFR-NON AF [place] >60 Normal >=60 [facility] Comment on above: Performed By: #### C BC #### [facility] [address] [place] [address] Dr. Dwight Waters GGTon 06-06-2022 Gamma glutamyl transferase [Catalytic activity/Vol] 29 U/L Normal 15-85 [facility] Comment on above: Performed By: #### C BC #### [facility] [address] [place] [address] Dr. Dwight Waters GLUCOSE BLOODon 06-06-2022 Glucose [Mass/Vol] 112 mg/dL Critically high 74-106 [facility] Comment on above: Performed By: #### C BC #### [facility] [address] [place] [address] Dr. Dwight Waters MAGNESIUMon 06-06-2022 Magnesium [Mass/Vol] 1.3 mg/dL Critically low 1.8-2.4 [facility] Comment on above: Performed By: #### C MP #### [facility] [address] [place] [address] Dr. Dwight Waters NAon 06-06-2022 Sodium [Moles/Vol] 141 mmol/L Normal 136-[address] [facility] Comment on above: Performed By: #### C MP #### [facility] [address] [place] [address] Dr. Dwight Waters PHOSPHORUSon 06-06-2022 Phosphate [Mass/Vol] 3.1 mg/dL Normal 2.6-4.7 [facility] Comment on above: Performed By: #### C MP #### [facility] [address] [place] [address] Dr. Dwight Waters POTASSIUMon 06-06-2022 Potassium [Moles/Vol] 4.3 mmol/L Normal 3.5-5.1 [facility] Comment on above: Performed By: #### C BC #### [facility] [address] [place] [address] Dr. Dwight Waters SGOTon 06-06-2022 AST [Catalytic activity/Vol] 16 U/L Normal 15-37 [facility] Comment on above: Performed By: #### C BC #### [facility] [address] [place] [address] Dr. Dwight Waters SGPTon 06-06-2022 ALT [Catalytic activity/Vol] 50 U/L Normal 16-63 [facility] Comment on above: Performed By: #### C BC #### [facility] [address] [place], [place] [address] Dr. Dwight Waters Bacteria identified Cx Nom ( Bld)on 05-21-2022 Bacteria identified Cx Nom (Unsp spec) NO GROWTH DAY 5 OF 5 [facility] Results may be compromised due to volume of BACT\ALERT bottle exceeding 10mLs . The optimal blood volume is 8-10 mls per aerobic/anaerobic blood culture bottle. [facility] CALCIUMon 05-20-2022 Calcium [Mass/Vol] 9.1 mg/dL 8.6 - 10. 5 mg/dL [facility] CBC,PLATELETSon 05-20-2022 Erythrocyte distribution width (RBC) [Ratio] 12.5 % 10.9 - 14.3 % [facility] Hematocrit (Bld) [Volume fraction] 37.1 % Low 39.6 - 48.8 % [facility] Hemoglobin (Bld) [Mass/Vol] 12.3 g/dL Low 13.4 - 16.8 g/dL [facility] Interpretation and review of laboratory results Abnormal [facility] MCH (RBC) [Entitic mass] 28.9 pg 26.1 - 33.3 pg [facility] MCHC (RBC) [Mass/Vol] 33.2 g/dL 31.9 - 36.5 g/dL [facility] MCV (RBC) [Entitic vol] 87.3 fL 79.0 - 94.5 fL [facility] Platelet mean volume (Bld) [Entitic vol] 9.9 fL 8.7 - 12.3 fL [facility] Platelets (Bld) [#/Vol] 234 10*3/uL 146 - 337 K/uL [facility] RBC (Bld) [#/Vol] 4.25 10*6/uL Low [facility] WBC (Bld) [#/Vol] 6.31 10*3/uL 3.73 - 10. 10 K/uL [facility] CHEM 7 (LYTES,BUN,CREA,GLUC) on 05-20-2022 Anion gap [Moles/Vol] 15 mmol/L 7 - 17 mmol/L [facility] Chloride [Moles/Vol] 111 mmol/L High 98 - 10 8 [facility] CO2 [Moles/Vol] 22 mmol/L 21 - 31 mmol/L [facility] Creatinine [Mass/Vol] 1.10 mg/dL 0.70 - 1.30 mg/dL [facility] GFR/1.73 sq M.predicted CKD-EPI (S/P/Bld) [Vol rate/Area] 81 >=60 mL/min/1.73m2 [facility] Comment on above: Reported eGFR is bas ed on the CKD-EPI 2020 equation using creatinine, age, and sex. Glucose [Mass/Vol] 92 mg/dL 70 - 99 mg/dL [facility] Interpretation and review of laboratory results Abnormal [facility] Osmolality Calc [Osmolality] 302 [facility] Potassium [Moles/Vol] 4.4 mmol/L 3.5 - 5.0 mmol/L [facility] Sodium [Moles/Vol] 144 mmol/L 135 - 145 mmol/L [facility] Urea nitrogen [Mass/Vol] 18 mg/dL 7 - 25 mg/dL [facility] Urea nitrogen/Creatinine [Mass ratio] 16 mg/mg [facility] MAGNESIUMon 05-20-2022 Interpretation and review of laboratory results Abnormal [facility] Magnesium [Mass/Vol] 1.5 mg/dL Low 1.6 - 2 .6 mg/dL [facility] No Panel Informationon 05-20 Interpretation and review of laboratory results Normal [facility] PHOSPHATE, INORGANICon 05-20 Phosphate [Mass/Vol] 3.3 mg/dL 2.2 - 4 .6 mg/dL [facility] RF Unspecified body region [...] projections of kidneys, ureters, and bladder. FINDINGS: Suction Plate Roller Hand images: Suction Plate Roller Hand radiographs of the abdomen reveal a [...] Contrast refluxes up the ureter to the [place] right kidney that is grossly normal appearing. [...] projections of kidneys, ureters, and bladder. FINDINGS: Suction Plate Roller Hand images: Suction Plate Roller Hand radiographs of the abdomen reveal a [...] Contrast refluxes up the ureter to the [place] right kidney that is grossly normal appearing. [...] I have reviewed and approved this report. [facility] Radiology Study observation (narrative) [facility] RF Unspecified body region V iews during surgeryOrdered By: Lizz Campos on 05-20-2022 [facility] Work Phone: CALCIUMon 05-19-2022 Calcium [Mass/Vol] 9.2 mg/dL 8.6 - 10. 5 mg/dL [facility] Calcium [Mass/Vol] 8.6 mg/dL 8.6 - 10. 5 mg/dL [facility] CBC,PLATELETSon 05-19-2022 Erythrocyte distribution width (RBC) [Ratio] 12.4 % 10.9 - 14.3 % [facility] Hematocrit (Bld) [Volume fraction] 38.0 % Low 39.6 - 48.8 % [facility] Hemoglobin (Bld) [Mass/Vol] 12.0 g/dL Low 13.4 - 16.8 g/dL [facility] Interpretation and review of laboratory results Abnormal [facility] MCH (RBC) [Entitic mass] 28.6 pg 26.1 - 33.3 pg [facility] MCHC (RBC) [Mass/Vol] 31.6 g/dL Low 31.9 - 36.5 g/dL [facility] MCV (RBC) [Entitic vol] 90.5 fL 79.0 - 94.5 fL [facility] Platelet mean volume (Bld) [Entitic vol] 9.7 fL 8.7 - 12.3 fL [facility] Platelets (Bld) [#/Vol] 199 10*3/uL 146 - 337 K/uL [facility] RBC (Bld) [#/Vol] 4.20 10*6/uL Low [facility] WBC (Bld) [#/Vol] 6.81 10*3/uL 3.73 - 10. 10 K/uL [facility] CHEM 7 (LYTES,BUN,CREA,GLUC) on 05-19-2022 Anion gap [Moles/Vol] 13 mmol/L 7 - 17 mmol/L [facility] Chloride [Moles/Vol] 105 mmol/L 98 - 10 8 mmol/L [facility] CO2 [Moles/Vol] 30 mmol/L 21 - 31 mmol/L [facility] Creatinine [Mass/Vol] 1.39 mg/dL High 0.70 - 1.30 mg/dL [facility] GFR/1.73 sq M.predicted CKD-EPI (S/P/Bld) [Vol rate/Area] 61 >=60 mL/min/1.73m2 [facility] Comment on above: Reported eGFR is bas ed on the CKD-EPI 2020 equation using creatinine, age, and sex. Glucose [Mass/Vol] 121 mg/dL High 70 - 99 mg/dL [facility] Interpretation and review of laboratory results Abnormal [facility] Osmolality Calc [Osmolality] 303 [facility] Potassium [Moles/Vol] 3.8 mmol/L 3.5 - 5.0 mmol/L [facility] Sodium [Moles/Vol] 144 mmol/L 135 - 145 mmol/L [facility] Urea nitrogen [Mass/Vol] 18 mg/dL 7 - 25 mg/dL [facility] Urea nitrogen/Creatinine [Mass ratio] 13 mg/mg [facility] Anion gap [Moles/Vol] 15 mmol/L 7 - 17 mmol/L [facility] Chloride [Moles/Vol] 106 mmol/L 98 - 10 8 mmol/L [facility] CO2 [Moles/Vol] 24 mmol/L 21 - 31 mmol/L [facility] Creatinine [Mass/Vol] 1.46 mg/dL High 0.70 - 1.30 mg/dL [facility] GFR/1.73 sq M.predicted CKD-EPI (S/P/Bld) [Vol rate/Area] 58 Low >=60 mL/min/1.73m2 [facility] Comment on above: Reported eGFR is bas ed on the CKD-EPI 2020 equation using creatinine, age, and sex. Glucose [Mass/Vol] 103 mg/dL High 70 - 99 mg/dL [facility] Interpretation and review of laboratory results Abnormal [facility] Osmolality Calc [Osmolality] 298 [facility] Potassium [Moles/Vol] 3.9 mmol/L 3.5 - 5.0 mmol/L [facility] Sodium [Moles/Vol] 141 mmol/L 135 - 145 mmol/L [facility] Urea nitrogen [Mass/Vol] 21 mg/dL 7 - 25 mg/dL [facility] Urea nitrogen/Creatinine [Mass ratio] 14 mg/mg [facility] MAGNESIUMon 05-19-2022 Magnesium [Mass/Vol] 2.0 mg/dL 1.6 - 2 .6 mg/dL [facility] Magnesium [Mass/Vol] 1.7 mg/dL 1.6 - 2 .6 mg/dL [facility] No Panel Informationon 05-19 Interpretation and review of laboratory results Normal [facility] Interpretation and review of laboratory results Normal [facility] PHOSPHATE, INORGANICon 05-19 Phosphate [Mass/Vol] 3.0 mg/dL 2.2 - 4 .6 mg/dL [facility] Phosphate [Mass/Vol] 2.7 mg/dL 2.2 - 4 .6 mg/dL [facility] CALCIUMon 05-18-2022 Calcium [Mass/Vol] 9.1 mg/dL 8.6 - 10. 5 mg/dL [facility] CBC,PLATELETSon 05-18-2022 Erythrocyte distribution width (RBC) [Ratio] 12.5 % 10.9 - 14.3 % [facility] Hematocrit (Bld) [Volume fraction] 37.3 % Low 39.6 - 48.8 % [facility] Hemoglobin (Bld) [Mass/Vol] 11.9 g/dL Low 13.4 - 16.8 g/dL [facility] Interpretation and review of laboratory results Abnormal [facility] MCH (RBC) [Entitic mass] 28.9 pg 26.1 - 33.3 pg [facility] MCHC (RBC) [Mass/Vol] 31.9 g/dL 31.9 - 36.5 g/dL [facility] MCV (RBC) [Entitic vol] 90.5 fL 79.0 - 94.5 fL [facility] Platelet mean volume (Bld) [Entitic vol] 10.1 fL 8.7 - 12.3 fL [facility] Platelets (Bld) [#/Vol] 189 10*3/uL 146 - 337 K/uL [facility] RBC (Bld) [#/Vol] 4.12 10*6/uL Low [facility] WBC (Bld) [#/Vol] 10.19 10*3/uL High 3.73 - 10 .10 K/uL [facility] CHEM 7 (LYTES,BUN,CREA,GLUC) on 05-18-2022 Anion gap [Moles/Vol] 13 mmol/L 7 - 17 mmol/L [facility] Chloride [Moles/Vol] 102 mmol/L 98 - 10 8 mmol/L [facility] CO2 [Moles/Vol] 26 mmol/L 21 - 31 mmol/L [facility] Creatinine [Mass/Vol] 1.91 mg/dL High 0.70 - 1.30 mg/dL [facility] GFR/1.73 sq M.predicted CKD-EPI (S/P/Bld) [Vol rate/Area] 42 Low >=60 mL/min/1.73m2 [facility] Comment on above: Reported eGFR is bas ed on the CKD-EPI 2020 equation using creatinine, age, and sex. Glucose [Mass/Vol] 158 mg/dL High 70 - 99 mg/dL [facility] Osmolality Calc [Osmolality] 297 [facility] Potassium [Moles/Vol] 4.0 mmol/L 3.5 - 5.0 mmol/L [facility] Sodium [Moles/Vol] 137 mmol/L 135 - 145 mmol/L [facility] Urea nitrogen [Mass/Vol] 30 mg/dL High 7 - 25 mg/dL [facility] Urea nitrogen/Creatinine [Mass ratio] 16 mg/mg [facility] CHEM 7 (LYTES,BUN,CREA,GLUC) Ordered By: Tamiko Thapa on 05-18-2022 Anion gap [Moles/Vol] 13 mmol/L 7 - 17 mmol/L [facility] Chloride [Moles/Vol] 104 mmol/L 98 - 10 8 mmol/L [facility] CO2 [Moles/Vol] 26 mmol/L 21 - 31 mmol/L [facility] Creatinine [Mass/Vol] 2.96 mg/dL High 0.70 - 1.30 mg/dL [facility] GFR/1.73 sq M.predicted CKD-EPI (S/P/Bld) [Vol rate/Area] 25 Low >=60 mL/min/1.73m2 [facility] Comment on above: Reported eGFR is bas ed on the CKD-EPI 2020 equation using creatinine, age, and sex. Glucose [Mass/Vol] 136 mg/dL High 70 - 99 mg/dL [facility] Interpretation and review of laboratory results Abnormal [facility] Osmolality Calc [Osmolality] 304 [facility] Potassium [Moles/Vol] 4.2 mmol/L 3.5 - 5.0 mmol/L [facility] Sodium [Moles/Vol] 139 mmol/L 135 - 145 mmol/L [facility] Urea nitrogen [Mass/Vol] 41 mg/dL High 7 - 25 mg/dL [facility] Urea nitrogen/Creatinine [Mass ratio] 14 mg/mg [facility] MAGNESIUMon 05-18-2022 Magnesium [Mass/Vol] 2.2 mg/dL 1.6 - 2 .6 mg/dL [facility] Interpretation and review of laboratory results Normal [facility] Magnesium [Mass/Vol] 1.7 mg/dL 1.6 - 2 .6 mg/dL [facility] No Panel Informationon 05-18 Interpretation and review of laboratory results Abnormal [facility] Interpretation and review of laboratory results Normal [facility] PHOSPHATE, INORGANICon 05-18 Phosphate [Mass/Vol] 2.0 mg/dL Low 2.2 - 4 .6 mg/dL [facility] Interpretation and review of laboratory results Normal [facility] Phosphate [Mass/Vol] 2.8 mg/dL 2.2 - 4 .6 mg/dL [facility] PT,INR,PTTon 05-18-2022 aPTT Coag (PPP) [Time] 31.0 s [facility] INR Coag (Bld) [Relative time] 1.1 {INR} [facility] Interpretation and review of laboratory results Abnormal [facility] PT Coag (PPP) [Time] 14.4 s High [facility] URINE CULTUREOrdered By: Sylvia Campos on 05-18-2022 Bacteria identified Cx Nom (Unsp spec) No Growth [facility] CBC,PLATELETSon 05-17-2022 Erythrocyte distribution width (RBC) [Ratio] 12.8 % 10.9 - 14.3 % [facility] Hematocrit (Bld) [Volume fraction] 42.8 % 39.6 - 48.8 % [facility] Hemoglobin (Bld) [Mass/Vol] 13.3 g/dL Low 13.4 - 16.8 g/dL [facility] Interpretation and review of laboratory results Abnormal [facility] MCH (RBC) [Entitic mass] 28.9 pg 26.1 - 33.3 pg [facility] MCHC (RBC) [Mass/Vol] 31.1 g/dL Low 31.9 - 36.5 g/dL [facility] MCV (RBC) [Entitic vol] 92.8 fL 79.0 - 94.5 fL [facility] Platelet mean volume (Bld) [Entitic vol] 10.3 fL 8.7 - 12.3 fL [facility] Platelets (Bld) [#/Vol] 188 10*3/uL 146 - 337 K/uL [facility] RBC (Bld) [#/Vol] 4.61 10*6/uL [facility] WBC (Bld) [#/Vol] 16.61 10*3/uL High 3.73 - 10 .10 K/uL [facility] CHEM 7 (LYTES,BUN,CREA,GLUC) Ordered By: Kaylah Mc on 05-17-2022 Anion gap [Moles/Vol] 15 mmol/L 7 - 17 mmol/L [facility] Chloride [Moles/Vol] 103 mmol/L 98 - 10 8 mmol/L [facility] CO2 [Moles/Vol] 23 mmol/L 21 - 31 mmol/L [facility] Creatinine [Mass/Vol] 5.95 mg/dL High 0.70 - 1.30 mg/dL [facility] GFR/1.73 sq M.predicted CKD-EPI (S/P/Bld) [Vol rate/Area] 11 Low >=60 mL/min/1.73m2 [facility] Comment on above: Reported eGFR is bas ed on the CKD-EPI 2020 equation using creatinine, age, and sex. Glucose [Mass/Vol] 165 mg/dL High 70 - 99 mg/dL [facility] Interpretation and review of laboratory results Abnormal [facility] Osmolality Calc [Osmolality] 305 [facility] Potassium [Moles/Vol] 4.6 mmol/L 3.5 - 5.0 mmol/L [facility] Sodium [Moles/Vol] 136 mmol/L 135 - 145 mmol/L [facility] Urea nitrogen [Mass/Vol] 52 mg/dL High 7 - 25 mg/dL [facility] Urea nitrogen/Creatinine [Mass ratio] 9 [facility]M 7 (LYTES,BUN,CREA,GLUC) Ordered By: Kehinde Gutierrez on 05-17-2022 Anion gap [Moles/Vol] 24 mmol/L High 7 - 17 mmol/L [facility] Chloride [Moles/Vol] 100 mmol/L 98 - 10 8 mmol/L [facility] CO2 [Moles/Vol] 16 mmol/L Low 21 - 31 mmol/L [facility] Creatinine [Mass/Vol] 8.08 mg/dL High 0.70 - 1.30 mg/dL [facility] GFR/1.73 sq M.predicted CKD-EPI (S/P/Bld) [Vol rate/Area] 7 Low >=60 mL/min/1.73m2 [facility] Comment on above: Reported eGFR is bas ed on the CKD-EPI 2020 equation using creatinine, age, and sex. Glucose [Mass/Vol] 164 mg/dL High 70 - 99 mg/dL [facility] Interpretation and review of laboratory results Abnormal [facility] Osmolality Calc [Osmolality] 305 [facility] Potassium [Moles/Vol] 5.0 mmol/L 3.5 - 5.0 mmol/L [facility] Sodium [Moles/Vol] 135 mmol/L 135 - 145 mmol/L [facility] Urea nitrogen [Mass/Vol] 56 mg/dL High 7 - 25 mg/dL [facility] Urea nitrogen/Creatinine [Mass ratio] 7 mg[facility] LAVENDER TOP TUBEon 05-17-20 [facility] MAGNESIUMon 05-17-2022 Interpretation and review of laboratory results Normal [facility] Magnesium [Mass/Vol] 1.8 mg/dL 1.6 - 2 .6 mg/dL [facility] Interpretation and review of laboratory results Normal [facility] Magnesium [Mass/Vol] 1.6 mg/dL 1.6 - 2 .6 mg/dL [facility] No Panel Informationon 05-17 [facility] PHOSPHATE, INORGANICon 05-17 Interpretation and review of laboratory results Abnormal [facility] Phosphate [Mass/Vol] 4.9 mg/dL High 2.2 - 4 .6 mg/dL [facility] PT,INR,PTTon 05-17-2022 aPTT Coag (PPP) [Time] 33.0 s [facility] INR Coag (Bld) [Relative time] 1.3 {INR} High [facility] Interpretation and review of laboratory results Abnormal [facility] PT Coag (PPP) [Time] 15.7 s High [facility] Portable XR Chest Viewson IMPRESSION: No [...] Stable cardiomegaly. IMPRESSION IMPRESSION: No acute findings. [facility] Radiology Study observation (narrative) [facility] Portable XR Chest ViewsOrder ed By: David Sanz on 05-17-2022 [facility] Work Phone: URINALYSISOrdered By: Michael patel Ma on 05-17-2022 Appearance (U) Cloudy Abnormal Clear [facility] Comment on above: Results may be inacc urate due to color interference. Clinical correlation recommended. Bacteria LM Ql (Urine sed) ABSENT ABSENT [facility] Color (U) Red Abnormal Yellow [facility] Comment on above: Results may be inacc urate due to color interference. Clinical correlation recommended. Epithelial cells.squamous LM Ql (Urine sed) ABSENT 1/hpf = 1+, 2-5/hpf = 2+, 0/hpf = 0+, ABSENT [facility] Glucose Test strip (U) [Mass/Vol] Negative Negative [facility] Comment on above: Results may be inacc urate due to color interference. Clinical correlation recommended. Interpretation and review of laboratory results Abnormal [facility] Ketones (U) [Mass/Vol] Trace Abnormal Negative [facility] Comment on above: Results may be inacc urate due to color interference. Clinical correlation recommended. Leukocyte esterase Test strip Ql (U) Large Abnormal Negative [facility] Comment on above: Results may be inacc urate due to color interference. Clinical correlation recommended. Nitrite Ql (U) Negative Negative [facility] Comment on above: Results may be inacc urate due to color interference. Clinical correlation recommended. pH (U) 5.0 [pH] 5.0 - 7.0 [facility] Comment on above: Results may be inacc urate due to color interference. Clinical correlation recommended. Protein (U) [Mass/Vol] mg/dL Abnormal Negative [facility] Comment on above: Results may be inacc urate due to color interference. Clinical correlation recommended. RBC (U) [#/Vol] Large Abnormal Negative [facility] Comment on above: Results may be inacc urate due to color interference. Clinical correlation recommended. RBC LM.HPF (Urine sed) [#/Area] /[HPF] Abnormal 0 - 2 /HPF [facility] Specific gravity (U) [Rel density] 1.016 [facility] Comment on above: Results may be inacc urate due to color interference. Clinical correlation recommended. Urobilinogen (U) [Mass/Vol] 0.2 E.U./dL 0.2 E.U/dL, 1.0 E.U/dL [facility] Comment on above: Results may be inacc urate due to color interference. Clinical correlation recommended. WBC LM.HPF (Urine sed) [#/Area] /[HPF] Abnormal 0 - 5 /HPF [facility] URINE CULTUREOrdered By: Tyler Tiwari on 05-17-2022 Bacteria identified Cx Nom (Unsp spec) No Growth [facility] CBC,PLATELETSon 05-16-2022 Erythrocyte distribution width (RBC) [Ratio] 12.9 % 10.9 - 14.3 % [facility] Hematocrit (Bld) [Volume fraction] 46.5 % 39.6 - 48.8 % [facility] Hemoglobin (Bld) [Mass/Vol] 14.7 g/dL 13.4 - 16.8 g/dL [facility] Interpretation and review of laboratory results Abnormal [facility] MCH (RBC) [Entitic mass] 28.3 pg 26.1 - 33.3 pg [facility] MCHC (RBC) [Mass/Vol] 31.6 g/dL Low 31.9 - 36.5 g/dL [facility] MCV (RBC) [Entitic vol] 89.6 fL 79.0 - 94.5 fL [facility] Platelet mean volume (Bld) [Entitic vol] 10.3 fL 8.7 - 12.3 fL [facility] Platelets (Bld) [#/Vol] 188 10*3/uL 146 - 337 K/uL [facility] RBC (Bld) [#/Vol] 5.19 10*6/[facility]L [facility] [#/Vol] 12.55 10*3/uL High 3.73 - 10 .10 K/uL [facility] CHEM 7 (LYTES,BUN,CREA,GLUC) Ordered By: Alma Pena on 05-16-2022 Anion gap [Moles/Vol] 14 mmol/L 7 - 17 mmol/L [facility] Chloride [Moles/Vol] 103 mmol/L 98 - 10 8 mmol/L [facility] CO2 [Moles/Vol] 22 mmol/L 21 - 31 mmol/L [facility] Creatinine [Mass/Vol] 6.09 mg/dL High 0.70 - 1.30 mg/dL [facility] GFR/1.73 sq M.predicted CKD-EPI (S/P/Bld) [Vol rate/Area] 10 Low >=60 mL/min/1.73m2 [facility] Comment on above: Reported eGFR is bas ed on the CKD-EPI 2020 equation using creatinine, age, and sex. Glucose [Mass/Vol] 134 mg/dL High 70 - 99 mg/dL [facility] Interpretation and review of laboratory results Abnormal [facility] Osmolality Calc [Osmolality] 298 [facility] Potassium [Moles/Vol] 4.9 mmol/L 3.5 - 5.0 mmol/L [facility] Sodium [Moles/Vol] 134 mmol/L Low 135 - 145 mmol/L [facility] Comment on above: Results inconsistent with previous results Urea nitrogen [Mass/Vol] 49 mg/dL High 7 - 25 mg/dL [facility] Urea nitrogen/Creatinine [Mass ratio] 8 mg/mg [facility] CHEM 7 (LYTES,BUN,CREA,GLUC) on 05-16-2022 Anion gap [Moles/Vol] 17 mmol/L 7 - 17 mmol/L [facility] Chloride [Moles/Vol] 106 mmol/L 98 - 10 8 mmol/L [facility] CO2 [Moles/Vol] 22 mmol/L 21 - 31 mmol/L [facility] Creatinine [Mass/Vol] 5.23 mg/dL High 0.70 - 1.30 mg/dL [facility] GFR/1.73 sq M.predicted CKD-EPI (S/P/Bld) [Vol rate/Area] 13 Low >=60 mL/min/1.73m2 [facility] Comment on above: Reported eGFR is bas ed on the CKD-EPI 2020 equation using creatinine, age, and sex. Glucose [Mass/Vol] 116 mg/dL High 70 - 99 mg/dL [facility] Interpretation and review of laboratory results Abnormal [facility] Osmolality Calc [Osmolality] 305 [facility] Potassium [Moles/Vol] 4.6 mmol/L 3.5 - 5.0 mmol/L [facility] Sodium [Moles/Vol] 140 mmol/L 135 - 145 mmol/L [facility] Urea nitrogen [Mass/Vol] 42 mg/dL High 7 - 25 mg/dL [facility] Urea nitrogen/Creatinine [Mass ratio] 8 mg/mg [facility] EXTRA MICROon 05-16-2022 [facility] LT BLUE TOP TUBEon 2 [facility] LYTES (NA, K, CL) - URINE - RANDOMon 05-16-2022 Chloride (24H U) [Moles/Vol] 68 mmol/L [facility] Potassium (24H U) [Moles/Vol] 36.7 mmol/L [facility] Sodium (24H U) [Moles/Vol] 55 mmol/L [facility] The reference range has not been established for random urine specimens. The test result should be integrated into the clinical context for interpretation. [facility] MAGNESIUMon 05-16-2022 Interpretation and review of laboratory results Normal [facility] Magnesium [Mass/Vol] 1.7 mg/dL 1.6 - 2 .6 mg/dL [facility] NOVEL CORONAVIRUS PCROrdered By: Edson Candelario on 05-16-2022 SARS-CoV-2 (COVID-19) RNA ESTELITA+probe Ql (Unsp spec) Not detected NOT DETECTED [facility] Comment on above: [facility] Negative results do [...] use authorization for use by authorized laboratories. [facility] No Panel Informationon 05-16 [facility] OSMOLALITY, URINEon 05-16-20 Interpretation and review of laboratory results Normal [facility] Osmolality (U) [Osmolality] 320 mosm/kg [facility] The reference range has not been established for random urine specimens. The test result should be integrated into the clinical context for interpretation. [facility] PROCALCITONINon 05-16-2022 Interpretation and review of laboratory results Normal [facility] Procalcitonin [Mass/Vol] 0.18 ng/mL <0.50 [facility] Comment on above: Procalcitonin [...] and trend procalcitonin in various clinical settings. [email or web address] Two common cutoffs associated with bacterial infections are as follows. Respiratory tract infections: >0.25 ng/mL Sepsis/septic shock: >0.5 ng/mL Procalcitonin should not be used alone as a diagnostic tool, however. All procalcitonin results should be interpreted in association with the patients clinical condition and all laboratory findings. [facility] PT,INR,PTTon 05-16-2022 aPTT Coag (PPP) [Time] 30.3 s [facility] INR Coag (Bld) [Relative time] 1.1 {INR} [facility] Interpretation and review of laboratory results Normal [facility] PT Coag (PPP) [Time] 14.1 s [facility] SARS-CoV-2 (COVID-19) RNA NA A+probe Ql (Unsp spec)Ordered By: Edson Candelario on 05-16-2022 Interpretation and review of laboratory results Normal [facility] TACROLIMUS LEVEL, TROUGH (TN E DRUG LEVEL)Ordered By: Mariama Nick on 05-16-2022 Interpretation and review of laboratory results Normal [facility] Tacrolimus (Bld) [Mass/Vol] 4.1 ng/mL Bone Marrow Transplant: 4.0-12.0, Therapeutic: 5.0-15.0 [facility] Method performed is a chemiluminescent microparticle immunoasssay on the [employer] i2000. The range is based on experience at [facility] and users should be aware that target concentrations vary widely depending on concomitant therapy, time post-transplant, and desired degree of immunosuppression. [facility] URINE PROTEIN/CREA RATIO, RA Baljit 05-16-2022 Creatinine (24H U) [Mass/Vol] 59.82 mg/dL [facility] Protein Unsp time (U) [Mass/Vol] 111 mg/dL [facility] Protein/Creatinine (U) [Mass ratio] 1.856 mg/g [facility] US for transplanted kidney dina shiitedon 05-16-2022 IMPRESSION: 1. Pelvocaliectasis/mild hydronephrosis in the [...] the abdomen and pelvis, 05/15/2022. TECHNIQUE: Real-time carrasco scale ultrasound images of the renal transplant [...] the abdomen and pelvis, 05/15/2022. TECHNIQUE: Real-time carrasco scale ultrasound images of the renal transplant [...] appearing vascular flow in the transplant kidney. [facility] Radiology Study observation (narrative) [facility] US for transplanted kidney l imitedOrdered By: Rosendo Matute on 05-16-2022 [facility] Work Phone: CBC AND ELECTRONIC DIFFon Basophils (Bld) [#/Vol] 10*3/uL 0.00 - 0.09 K/uL [facility] Basophils/100 WBC (Bld) 0.2 % [facility] Differential cell count method Nom (Bld) Electronic Differential [facility] Eosinophils (Bld) [#/Vol] 10*3/uL 0.00 - 0.48 K/uL [facility] Eosinophils/100 WBC (Bld) 0.0 % [facility] Erythrocyte distribution width (RBC) [Ratio] 12.8 % 10.9 - 14.3 % [facility] Hematocrit (Bld) [Volume fraction] 46.0 % 39.6 - 48.8 % [facility] Hemoglobin (Bld) [Mass/Vol] 14.6 g/dL 13.4 - 16.8 g/dL [facility] Immature granulocytes (Bld) [#/Vol] 0.07 10*3/uL <=0.08 [facility] Immature granulocytes/100 WBC (Bld) 0.4 % [facility] Interpretation and review of laboratory results Abnormal [facility] Lymphocytes (Bld) [#/Vol] 1.49 10*3/uL 0.83 - 3.57 K/uL [facility] Lymphocytes/100 WBC (Bld) 9.4 % [facility] MCH (RBC) [Entitic mass] 28.2 pg 26.1 - 33.3 pg [facility] MCHC (RBC) [Mass/Vol] 31.7 g/dL Low 31.9 - 36.5 g/dL [facility] MCV (RBC) [Entitic vol] 89.0 fL 79.0 - 94.5 fL [facility] Monocytes (Bld) [#/Vol] 1.45 10*3/uL High 0.24 - 0.93 K/uL [facility] Monocytes/100 WBC (Bld) 9.2 % [facility] Neutrophils (Bld) [#/Vol] 12.77 10*3/uL High 1.57 - 6.19 K/uL [facility] Nucleated RBC/100 WBC (Bld) [Ratio] 0.0 % <=0.2 /100 WBC [facility] Platelet mean volume (Bld) [Entitic vol] 9.9 fL 8.7 - 12.3 fL [facility] Platelets (Bld) [#/Vol] 250 10*3/uL 146 - 337 K/uL [facility] RBC (Bld) [#/Vol] 5.17 10*6/uL [facility] Segmented neutrophils/100 WBC (Bld) 80.8 % [facility] WBC (Bld) [#/Vol] 15.81 10*3/uL High 3.73 - 10 .10 K/uL [facility] CBC AUTO DIFFon 05-15-2022 BASO # 0.0 103/ul Normal 0.0-0.1 [facility] Comment on above: Performed By: #### C BC #### [facility] [address] [place] [address] Dr. Dwight Waters Basophils/100 WBC (Bld) 0.3 % Normal 0.2-2.0 [facility] Comment on above: Performed By: #### C BC #### [facility] [address] [place] [address] Dr. Dwight Waters EO # 0.1 103/ul Normal 0.0-0.7 [facility] Comment on above: Performed By: #### C BC #### [facility] [address] [address] [address] Dwight Waters Eosinophils/100 WBC (Bld) 0.8 % Critically low 0.9-7.0 [facility] Comment on above: Performed By: #### C BC #### [facility] [address] [place] [address] Dr. Dwight Waters Erythrocyte distribution width (RBC) [Ratio] 12.7 % Normal 11.0-15.0 [facility] Comment on above: Performed By: #### C BC #### [facility] [address] [place] [address] Dr. Dwight Waters Hematocrit (Bld) [Volume fraction] 43.5 % Normal 42.0-54.0 [facility] Comment on above: Performed By: #### C BC #### [facility] [address] [place] [address] Dr. Dwight Waters Hemoglobin (Bld) [Mass/Vol] 14.4 g/dL Normal 14.0-18.0 [facility] Comment on above: Performed By: #### C BC #### [facility] [address] [place] [address] Dr. Dwight Waters IG # 0.02 10e3/ul Normal 0.00-0.03 [facility] Comment on above: Performed By: #### C BC #### [facility] [address] [place] [address] Dr. Dwight Waters IG % 0.2 % Normal 0.0-0.5 [facility] Comment on above: Performed By: #### C BC #### [facility] [address] [place] [address] Dr. Dwight Waters LYMPH # 1.5 103/ul Normal 1.2-3.8 [facility] Comment on above: Performed By: #### C BC #### [facility] [address] [place] [address] Dr. Dwight Waters Lymphocytes/100 WBC (Bld) 12.5 % Critically low 20.5-60.0 [facility] Comment on above: Performed By: #### C BC #### [facility] [address] [place] [address] Dr. Dwight Waters MANUAL DIFF REQ NO Normal [facility] Comment on above: Performed By: #### C BC #### [facility] [address] [place] [address] Dr. Dwight Waters MCH (RBC) [Entitic mass] 28.6 pg Normal 25.9-34.0 [facility] Comment on above: Performed By: #### C BC #### [facility] [address] [address] [address] Dwight Waters MCHC (RBC) [Mass/Vol] 33.1 g/dL Normal 29.9-35.2 [facility] Comment on above: Performed By: #### C BC #### [facility] [address] [address] [address] Dwight Waters MCV (RBC) [Entitic vol] 86.3 fL Normal 80.0-94.0 [facility] Comment on above: Performed By: #### C BC #### [facility] [address] [address] [address] Dwight Waters MONO # 1.0 103/ul Critically high 0.3-0.8 [facility] Comment on above: Performed By: #### C BC #### [facility] [address] [place] [address] Dr. Dwight Waters Monocytes/100 WBC (Bld) 8.2 % Normal 1.7-12.0 [facility] Comment on above: Performed By: #### C BC #### [facility] [address] [address] [address] Dwight Waters NEUT # 9.1 103/ul Critically high 1.4-6.5 [facility] Comment on above: Performed By: #### C BC #### [facility] [address] [address] [address] Dwight Waters Neutrophils/100 WBC (Bld) 78.0 % Critically high 43.0-75.0 [facility] Comment on above: Performed By: #### C BC #### [facility] [address] [address] [address] Dwight Waters Platelet mean volume (Bld) [Entitic vol] 9.8 fL Normal 9.5-13.5 [facility] Comment on above: Performed By: #### C BC #### [facility] [address] [address] [address] Dwight Waters PLT 251 103/ul Normal 150-450 [facility] Comment on above: Performed By: #### C BC #### [facility] [address] [place], [place] [address] Dr. Dwight Waters RBC 5.04 106/ul Normal 4.70-6.10 [facility] Comment on above: Performed By: #### C BC #### [facility] [address] [place], [place] [address] Dr. Dwight Waters WBC 11.6 103/ul Critically high 4.0-11.0 [facility] Comment on above: Performed By: #### C BC #### [facility] [id number] Dwight Waters CHEM 6 (LYTES, BUN CREA)on 0 05-15-2022 Anion gap [Moles/Vol] 12 mmol/L 7 - 17 mmol/L [facility] Chloride [Moles/Vol] 105 mmol/L 98 - 10 8 mmol/L [facility] CO2 [Moles/Vol] 26 mmol/L 21 - 31 mmol/L [facility] Creatinine [Mass/Vol] 2.85 mg/dL High 0.70 - 1.30 mg/dL [facility] GFR/1.73 sq M.predicted CKD-EPI (S/P/Bld) [Vol rate/Area] 26 Low >=60 mL/min/1.73m2 [facility] Comment on above: Reported eGFR is bas ed on the CKD-EPI 2020 equation using creatinine, age, and sex. Potassium [Moles/Vol] 4.6 mmol/L 3.5 - 5.0 mmol/L [facility] Sodium [Moles/Vol] 138 mmol/L 135 - 145 mmol/L [facility] Urea nitrogen [Mass/Vol] 32 mg/dL High 7 - 25 mg/dL [facility] Urea nitrogen/Creatinine [Mass ratio] 11 mg/mg [facility] ABD/PELVIS WO [...] transplanted kidney with moderate right-sided hydronephrosis. Atrophic [place] kidneys with moderate right-sided hydronephrosis. Multiple nonobstructive [...] transplanted kidney with moderate right-sided hydronephrosis. Atrophic [place] kidneys with moderate right-sided hydronephrosis. Multiple nonobstructive right renal calculi measuring up to 8 mm. FOLLOW-UP: Follow-up as clinically indicated. Electronically authenticated by: LYNDSAY JEAN Date: 2022-05-15 05:04 Normal [facility]30 SARS-CoV-2 (COVID-19) RNA ESTELITA+probe Ql (Unsp spec) Not detected Normal NOT DETECTED [facility] Comment on above: Result Comment: When diagnostic [...] for this test is supported by the [employer] of [employer]'s declaration that [...] RTPCR #### [facility] [address] [address] [address] Dwight Waters GLUCOSEon 05-15-2022 Glucose [Mass/Vol] 141 mg/dL High 70 - 99 mg/dL [facility] GOLD TOP TUBEon 05-15-2022 [facility] HEPATIC FUNCTION PANELon Albumin [Mass/Vol] 4.3 g/dL 3.5 - 5.0 g/dL [facility] ALP [Catalytic activity/Vol] 85 U/L 32 - 126 U/L [facility] ALT [Catalytic activity/Vol] 13 U/L 10 - 52 U/L [facility] AST [Catalytic activity/Vol] 15 U/L 10 - 39 U/L [facility] Bilirubin [Mass/Vol] 0.8 mg/dL <1.5 [facility] Bilirubin.direct [Mass/Vol] 0.2 mg/dL <0.3 [facility] Interpretation and review of laboratory results Normal [facility] Protein [Mass/Vol] 7.3 g/dL 6.4 - 8.3 g/dL [facility] LIPASEon 05-15-2022 Lipase [Catalytic activity/Vol] 8 U/L Low 11 - 82 U/L [facility] No Panel Informationon 05-15 Interpretation and review of laboratory results Abnormal [facility] PROF 14(COMP METB)on 022 Albumin [Mass/Vol] 3.8 g/dL Normal 3.4-5.[address] [facility] Comment on above: Performed By: #### U RTPCR #### [facility] [address] [address] [address] Dwight Waters Albumin/Globulin [Mass ratio] 1.1 {ratio} Normal [facility] Comment on above: Performed By: #### U RTPCR #### [facility] [address] [address] [address] Dwight Waters ALP [Catalytic activity/Vol] 92 U/L Normal 46-116 [facility] Comment on above: Performed By: #### U RTPCR #### [facility] [address] [address] [address] Dwight Waters ALT [Catalytic activity/Vol] 25 U/L Normal 16-63 [facility] Comment on above: Performed By: #### U RTPCR #### [facility] [address] [address] [address] Dwight Waters Anion gap [Moles/Vol] 14.6 mmol/L Normal [facility] Comment on above: Performed By: #### U RTPCR #### [facility] [address] [place] [address] Dr. Dwight Waters AST [Catalytic activity/Vol] 17 U/L Normal 15-37 [facility] Comment on above: Performed By: #### U RTPCR #### [facility] [address] [address] [address] Dwight Waters Bilirubin [Mass/Vol] 0.6 mg/dL Normal 0.2-1.0 [facility] Comment on above: Performed By: #### U RTPCR #### [facility] [address] [address] [address] Dwight Waters Calcium [Mass/Vol] 9.9 mg/dL Normal 8.5-10.[address] [facility] Comment on above: Performed By: #### U RTPCR #### [facility] [address] [address] [address] Dwight Waters Chloride [Moles/Vol] 106 mmol/L Normal 98-107 [facility] Comment on above: Performed By: #### U RTPCR #### [facility] [address] [address] [address] Dwight Waters CO2 [Moles/Vol] 24.2 mmol/L Normal 21.0-32.0 [facility] Comment on above: Performed By: #### U RTPCR #### [facility] [address] [address] [address] Dwight Waters Creatinine [Mass/Vol] 1.58 mg/dL Critically high 0.70-1.30 [facility] Comment on above: Performed By: #### U RTPCR #### [facility] [address] [address] [address] Dwight Waters EGFR-AF [place] 56 mL/min/1.73m2 Critically low >=60 [facility] Comment on above: Performed By: #### U RTPCR #### [facility] [address] [address] [address] Dwight Waters EGFR-NON AF [place] 46 mL/min/1.73m2 Critically low >=60 [facility] Comment on above: Performed By: #### U RTPCR #### [facility] [address] [address] [address] Dwight Waters Globulin (S) [Mass/Vol] 3.5 g/dL Normal [facility] Comment on above: Performed By: #### U RTPCR #### [facility] [address] [address] [address] Dwight Waters Glucose [Mass/Vol] 162 mg/dL Critically high 74-106 T [facility] Comment on above: Performed By: #### U RTPCR #### [facility] [address] [address] [address] Dwight Waters Potassium [Moles/Vol] 3.8 mmol/L Normal 3.5-5.1 [facility] Comment on above: Performed By: #### U RTPCR #### [facility] [address] [address] [address] Dwight Waters Protein [Mass/Vol] 7.3 g/dL Normal 6.4-8.2 [facility] Comment on above: Performed By: #### U RTPCR #### [facility] [address] [address] [address] Dwight Waters Sodium [Moles/Vol] 141 mmol/L Normal 136-[address] [facility] Comment on above: Performed By: #### U RTPCR #### [facility] [address] [address] [address] Dwight Waters Urea nitrogen [Mass/Vol] 22.0 mg/dL Critically high 7.0-18.0 [facility] Comment on above: Performed By: #### U RTPCR #### [facility] [address] [address] [address] Dwight Waters Urea nitrogen/Creatinine [Mass ratio] 13.9 mg/mg Normal [facility] Comment on above: Performed By: #### U RTPCR #### [facility] [address] [address] [address] Dwight Waters Portable XR Chest Viewson [...] chest. IMPRESSION IMPRESSION: No acute cardiopulmonary disease [facility] Radiology Study observation (narrative) [facility] Portable XR Chest ViewsOrder ed By: Vladislav Omer on 05-15-2022 [facility] URINE DIPSTICK; REFLEX MICRO SCOPY; REFLEX CULTURE PERFORMABLEon 05-15-2022 Appearance (U) Clear Clear [facility] Color (U) Yellow Yellow [facility] Glucose Test strip (U) [Mass/Vol] 100 mg/dL Abnormal Negative [facility] Interpretation and review of laboratory results Abnormal [facility] Ketones (U) [Mass/Vol] Negative Negative [facility] Leukocyte esterase Test strip Ql (U) Large [facility]normal [facility] Nitrite Ql (U) Negative Negative [facility] pH (U) 6.0 [pH] 5.0 - 7.0 [facility] Protein (U) [Mass/Vol] 100 mg/dL Abnormal Negative [facility] RBC (U) [#/Vol] Large Abnormal Negative [facility] Specific gravity (U) [Rel density] 1.010 [facility] Urobilinogen (U) [Mass/Vol] 0.2 E.U./dL 0.2 E.U/dL, 1.0 E.U/dL [facility] URINE MICROSCOPIC WITH REFLE X TO CULTUREOrdered By: Rey Bro on 05-15-2022 Bacteria LM Ql (Urine sed) ABSENT ABSENT [facility] Epithelial cells.squamous LM Ql (Urine sed) ABSENT 1/hpf = 1+, 2-5/hpf = 2+, 0/hpf = 0+, ABSENT [facility] Interpretation and review of laboratory results Abnormal [facility] RBC LM.HPF (Urine sed) [#/Area] /[HPF] Abnormal 0 - 2 /HPF [facility] WBC LM.HPF (Urine sed) [#/Area] 10-20 Abnormal 0 - 5 /HPF [facility] CT ABD/PELVIS WO CONon 05-12 CT ABD/PELVIS WO CON Begin Addendum #[address] Lund 3:25 PM EST 05/11/2022. Begin Addendum #2 IMPRESSION below should also contain the followin. 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 The [place] kidneys are progressively atrophic bilaterally compared to [...] of 06/14/2020 are no longer present. The [place] distal right ureter is decompressed beyond this [...] with surgical history for renal graft and [place] right urinary drainage, as a discrete ureteroneocystostomy is not identified, and the graft may be draining via a ureteroureterostomy. Urology consultation recommended. 3. The [place] kidneys are bilaterally atrophic, with right renal sinus calcifications consistent with nonobstructing right [place] renal calculi up to 6 mm. Normal [facility] CBC AUTO DIFFon 05-11-2022 BASO # 0.1 103/ul Normal 0.0-0.1 [facility] Comment on above: Performed By: #### U RTPCR #### [facility] [address] [address] [address] Dwight Waters Basophils/100 WBC (Bld) 0.8 % Normal 0.2-2.0 [facility] Comment on above: Performed By: #### U RTPCR #### [facility] [address] [address] [address] Dwight Waters EO # 0.2 103/ul Normal 0.0-0.7 [facility] Comment on above: Performed By: #### U RTPCR #### [facility] [address] [place] [address] Dr. Dwight Waters Eosinophils/100 WBC (Bld) 2.5 % Normal 0.9-7.0 [facility] Comment on above: Performed By: #### U RTPCR #### [facility] [address] [place] [address] Dr. Dwight Waters Erythrocyte distribution width (RBC) [Ratio] 12.5 % Normal 11.0-15.0 [facility] Comment on above: Performed By: #### U RTPCR #### [facility] [address] [place] [address] Dr. Dwight Waters Hematocrit (Bld) [Volume fraction] 48.3 % Normal 42.0-54.0 [facility] Comment on above: Performed By: #### U RTPCR #### [facility] [address] [address] [address] Dwight Waters Hemoglobin (Bld) [Mass/Vol] 15.3 g/dL Normal 14.0-18.0 [facility] Comment on above: Performed By: #### U RTPCR #### [facility] [address] [address] [address] Dwight Waters IG # 0.01 10e3/ul Normal 0.00-0.03 [facility] Comment on above: Performed By: #### U RTPCR #### [facility] [address] [address] [address] Dwight Waters IG % 0.2 % Normal 0.0-0.5 [facility] Comment on above: Performed By: #### U RTPCR #### [facility] [address] [place] [address] Dr. Dwight Waters LYMPH # 1.9 103/ul Normal 1.2-3.8 [facility] Comment on above: Performed By: #### U RTPCR #### [facility] [address] [place] [address] Dr. Dwight Waters Lymphocytes/100 WBC (Bld) 29.8 % Normal 20.5-60.0 [facility] Comment on above: Performed By: #### U RTPCR #### [facility] [address] [place] [address] Dr. Dwight Waters MANUAL DIFF REQ NO Normal [facility] Comment on above: Performed By: #### U RTPCR #### [facility] [address] [address] [address] Dwight Waters MCH (RBC) [Entitic mass] 28.2 pg Normal 25.9-34.0 [facility] Comment on above: Performed By: #### U RTPCR #### [facility] [address] [address] [address] Dwight Waters MCHC (RBC) [Mass/Vol] 31.7 g/dL Normal 29.9-35.2 [facility] Comment on above: Performed By: #### U RTPCR #### [facility] [address] [address] [address] Dwight Waters MCV (RBC) [Entitic vol] 89.1 fL Normal 80.0-94.0 [facility] Comment on above: Performed By: #### U RTPCR #### [facility] [address] [address] [address] Dwight Waters MONO # 0.6 103/ul Normal 0.3-0.8 [facility] Comment on above: Performed By: #### U RTPCR #### [facility] [address] [place] [address] Dr. Dwight Waters Monocytes/100 WBC (Bld) 9.0 % Normal 1.7-12.0 [facility] Comment on above: Performed By: #### U RTPCR #### [facility] [address] [place] [address] Dr. Dwight Waters NEUT # 3.6 103/ul Normal 1.4-6.5 [facility] Comment on above: Performed By: #### U RTPCR #### [facility] [address] [place] [address] Dr. Dwight Waters Neutrophils/100 WBC (Bld) 57.7 % Normal 43.0-75.0 [facility] Comment on above: Performed By: #### U RTPCR #### [facility] [address] [place] [address] Dr. Dwight Waters Platelet mean volume (Bld) [Entitic vol] 9.9 fL Normal 9.5-13.5 [facility] Comment on above: Performed By: #### U RTPCR #### [facility] [address] [place] [address] Dr. Dwight Waters PLT 249 103/ul Normal 150-450 [facility] Comment on above: Performed By: #### U RTPCR #### [facility] [address] [place] [address] Dr. Dwight Waters RBC 5.42 106/ul Normal 4.70-6.10 [facility] Comment on above: Performed By: #### U RTPCR #### [facility] [address] [place] [address] Dr. Dwight Waters WBC 6.3 103/ul Normal 4.0-11.0 [facility] Comment on above: Performed By: #### U RTPCR #### [facility] [address] [place] [address] Dr. Dwight Waters ER URINE PROFILEon 2 Bilirubin Ql (U) Unable to perform testing due to color interference. Abnormal NEGATIVE [facility] Comment on above: Performed By: #### U RTPCR #### [facility] [address] [place] [address] Dr. Dwight Waters Clarity (U) TURBID Abnormal CLEAR [facility] Comment on above: Performed By: #### U RTPCR #### [facility] [address] [place] [address] Dr. Dwight Waters Color (U) RED Abnormal YELLOW [facility] Comment on above: Performed By: #### U RTPCR #### [facility] [address] [place] [address] Dr. Dwight Waters ERUAHD A micrscopic examination will be performed if indicated. Normal [facility] Comment on above: Performed By: #### U RTPCR #### [facility] [address] [place] [address] Dr. Dwight Waters Glucose Ql (U) Unable to perform testing due to color interference. Abnormal NEGATIVE [facility] Comment on above: Performed By: #### U RTPCR #### [facility] [address] [place] [address] Dr. Dwight Waters Hemoglobin Ql (U) Unable to perform testing due to color interference. Abnormal NEGATIVE [facility] Comment on above: Performed By: #### U RTPCR #### [facility] [address] [place] [address] Dr. Dwight Waters Ketones Ql (U) Unable to perform testing due to color interference. Abnormal NEGATIVE [facility] Comment on above: Performed By: #### U RTPCR #### [facility] [address] [place] [address] Dr. Dwight Waters LEUKOCYTES Unable to perform testing due to color interference. Abnormal NEGATIVE [facility] Comment on above: Performed By: #### U RTPCR #### [facility] [address] [place] [address] Dr. Dwight Waters Nitrite Ql (U) Unable to perform testing due to color interference. Abnormal NEGATIVE [facility] Comment on above: Performed By: #### U RTPCR #### [facility] [address] [place] [address] Dr. Dwight Waters pH (U) 6.5 [pH] Normal 5-9 [facility] Comment on above: Performed By: #### U RTPCR #### [facility] [address] [place] [address] Dr. Dwight Waters SPEC GRAVITY 1.020 Normal 1.005-<=1.025 [facility] Comment on above: Performed By: #### U RTPCR #### [facility] [address] [place] [address] Dr. Dwight Waters UA PROTEIN Unable to perform testing due to color interference. Normal NEGATIVE/ TRACE [facility] Comment on above: Performed By: #### U RTPCR #### [facility] [address] [place] [address] Dr. Dwight Waters UR MICRO IND INDICATED Normal [facility] Comment on above: Performed By: #### U RTPCR #### [facility] [address] [place] [address] Dr. Dwight Waters UROBILINOGEN Unable to perform testing due to color interference. Normal 0.2 - 1.0 [facility] Comment on above: Performed By: #### U RTPCR #### [facility] [address] [place] [address] Dr. Dwight Waters PROF 14(COMP METB)on 022 Albumin [Mass/Vol] 3.8 g/dL Normal 3.4-5.[address] [facility] Comment on above: Performed By: #### C MP #### [facility] [address] [place] [address] Dr. Dwight Waters Albumin/Globulin [Mass ratio] 1.1 {ratio} Normal [facility] Comment on above: Performed By: #### C MP #### [facility] [address] [place] [address] Dr. Dwight Waters ALP [Catalytic activity/Vol] 106 U/L Normal 46-116 [facility] Comment on above: Performed By: #### C MP #### [facility] [address] [address] [address] Dwight Waters ALT [Catalytic activity/Vol] 30 U/L Normal 16-63 [facility] Comment on above: Performed By: #### C MP #### [facility] [address] [place] [address] Dr. Dwight Waters Anion gap [Moles/Vol] 11.7 mmol/L Normal [facility] Comment on above: Performed By: #### C MP #### [facility] [address] [place] [address] Dr. Dwight Waters AST [Catalytic activity/Vol] 16 U/L Normal 15-37 [facility] Comment on above: Performed By: #### C MP #### [facility] [address] [place] [address] Dr. Dwight Waters Bilirubin [Mass/Vol] 0.6 mg/dL Normal 0.2-1.0 [facility] Comment on above: Performed By: #### C MP #### [facility] [address] [place] [address] Dr. Dwight Waters Calcium [Mass/Vol] 9.1 mg/dL Normal 8.5-10.[address] [facility] Comment on above: Performed By: #### C MP #### [facility] [address] [place] [address] Dr. Dwight Waters CO2 [Moles/Vol] 27.4 mmol/L Normal 21.0-32.0 [facility] Comment on above: Performed By: #### C MP #### [facility] [address] [place] [address] Dr. Dwight Waters Creatinine [Mass/Vol] 1.18 mg/dL Normal 0.70-1.30 [facility] Comment on above: Performed By: #### C MP #### [facility] [address] [place] [address] Dr. Dwight Waters EGFR-AF [place] >60 Normal >=60 [facility] Comment on above: Performed By: #### C MP #### [facility] [address] [address] [address] Dwight Waters EGFR-NON AF [place] >60 Normal >=60 [facility] Comment on above: Performed By: #### C MP #### [facility] [address] [address] [address] Dwight Waters Globulin (S) [Mass/Vol] 3.6 g/dL Normal [facility] Comment on above: Performed By: #### C MP #### [facility] [address] [address] [address] Dwight Waters Glucose [Mass/Vol] 192 mg/dL Critically high 74-106 T [facility] Comment on above: Performed By: #### C MP #### [facility] [address] [address] [address] Dwight Waters Potassium [Moles/Vol] 4.1 mmol/L Normal 3.5-5.1 [facility] Comment on above: Performed By: #### C MP #### [facility] [address] [place] [address] Dr. Dwight Waters Protein [Mass/Vol] 7.4 g/dL Normal 6.4-8.[address] [facility] Comment on above: Performed By: #### C MP #### [facility] [address] [address] [address] Dwight Waters Sodium [Moles/Vol] 142 mmol/L Normal 136-145 [facility] Comment on above: Performed By: #### C MP #### [facility] [address] [address] [address] Dwight Waters Urea nitrogen [Mass/Vol] 17.0 mg/dL Normal 7.0-18.0 [facility] Comment on above: Performed By: #### C MP #### [facility] [address] [address] [address] Dwight Waters Urea nitrogen/Creatinine [Mass ratio] 14.4 mg/mg Normal [facility] Comment on above: Performed By: #### C MP #### [facility] [address] [place] [address] Dr. Dwight Waters URINE MICROSCOPIC ONLYon BACTERIA NONE SEEN Normal NONE SEEN [facility] Comment on above: Performed By: #### U RTPCR #### [facility] [address] [place] [address] Dr. Dwight Waters Bacteria identified Cx Nom (U) NOT INDICATED Normal [facility] Comment on above: Performed By: #### U RTPCR #### [facility] [address] [place] [address] Dr. Dwight Waters CAST NONE SEEN Normal NONE SEEN [facility] Comment on above: Performed By: #### U RTPCR #### [facility] [address] [place] [address] Dr. Dwight Waters Crystals LM Nom (Urine sed) NONE SEEN Normal NONE SEEN [facility] Comment on above: Performed By: #### U RTPCR #### [facility] [address] [place] [address] Dr. Dwight Waters Epithelial cells LM Ql (Urine sed) RARE Normal NONE SEEN /RARE [facility] Comment on above: Performed By: #### U RTPCR #### [facility] [address] [place] [address] Dr. Dwight Waters MUCOUS NONE SEEN Normal NONE SEEN [facility] Comment on above: Performed By: #### U RTPCR #### [facility] [address] [place] [address] Dr. Dwight Waters RBC (U) [#/Vol] /uL Abnormal 0-2 [facility] Comment on above: Performed By: #### U RTPCR #### [facility] [address] [place] [address] Dr. Dwight Waters WBC NONE SEEN Normal NONE SEEN [facility] Comment on above: Performed By: #### U RTPCR #### [facility] [address] [place] [address] Dr. Dwight Waters K (Potassium)on 01-06-2020 Potassium [Moles/Vol] 4.4 mmol/L Normal 3.7-5.3 [facility] Comment on above: Performed By: #### K #### [facility] [address] [place] [id number] Vertical Contour Band Saw Operator: Kehinde Woodward MD Potassiumon 01-06-2020 Potassium [Moles/Vol] 4.4 mmol/L 3.7 - 5.3 mmol/L [facility] Work Phone: Hemoglobin and Hematocrit, B loodon 10-24-2019 Hematocrit (Bld) [Volume fraction] 23.6 % Low 40.7 - 50.3 % [place], [place] Hemoglobin (Bld) [Mass/Vol] 7.3 g/dL Low 13 - 17 g/dL [place] Interpretation and review of laboratory results Abnormal [place] Hgb/Hcton 10-24-2019 Hematocrit (Bld) [Volume fraction] 23.6 % Low 40.7-50.3 [facility] Comment on above: Performed By: #### H H #### [facility] [address] [place] [address] Dr. [place] [facility] Vertical Contour Band Saw Operator: Kehinde Woodward MD Hemoglobin (Bld) [Mass/Vol] 7.3 g/dL Low 13.0-17.0 [facility] Comment on above: Performed By: #### H H #### [facility] [address] [place] [facility] Vertical Contour Band Saw Operator: Kehinde Woodward MD Hemoglobinon 08-27-2019 Hemoglobin (Bld) [Mass/Vol] 7.5 g/dL Low 13.0-17.0 [facility] Comment on above: Performed By: #### H GB #### [facility] [address] [place] [id number] Vertical Contour Band Saw Operator: Kehinde Woodward MD Hemoglobin (Bld) [Mass/Vol] 7.5 g/dL Low 13 - 17 g/dL [place] Interpretation and review of laboratory results Abnormal [place] Hemoglobinon 08-08-2019 Hemoglobin (Bld) [Mass/Vol] 8.3 g/dL Low 13.0-17.0 [facility] Comment on above: Performed By: #### H GB #### [facility] [address] [place] [address] Vertical Contour Band Saw Operator: Kehinde Woodward MD Hemoglobin (Bld) [Mass/Vol] 8.3 g/dL Low 13 - 17 g/dL [place] Interpretation and review of laboratory results Abnormal [place] Hemoglobinon 08-04-2019 Hemoglobin (Bld) [Mass/Vol] 8.0 g/dL Low 13.0-17.0 [facility] Comment on above: Performed By: #### H GB #### [address] [place] [id number] Vertical Contour Band Saw Operator: Kehinde Woodward MD Hemoglobin A1Con 08-03-2019 HbA1c (Bld) [Mass fraction] % Low 4.8-5.9 [facility] Comment on above: Result Comment: The ADA and AACC recommend providing the estimated average glucose result to permit better patient understanding of their HBA1c result. Performed By: #### G LYHGB #### [address] [place] [place] [address] Vertical Contour Band Saw Operator: Kehinde Woodward MD Glucose [Mass/Vol] mg/dL mg/dL [place] Comment on above: The ADA and AACC rec ommend providing the estimated average glucose result to permit better patient understanding of their HBA1c result. HbA1c (Bld) [Mass fraction] % Low 4.8 - 5.9 % [place], [place] Interpretation and review of laboratory results Abnormal [place] Hemoglobinon 08-01-2019 Hemoglobin (Bld) [Mass/Vol] 8.1 g/dL Low 13.0-17.0 [facility] Comment on above: Performed By: #### H GB #### [facility] [address] [place] [address] Vertical Contour Band Saw Operator: Kehinde Woodward MD Hemoglobin (Bld) [Mass/Vol] 8.1 g/dL Low 13 - 17 g/dL [place] Interpretation and review of laboratory results Abnormal [place] Hgb/Hcton 06-10-2019 Hematocrit (Bld) [Volume fraction] 24.3 % Low 40.7-50.3 [facility] Comment on above: Performed By: #### H H #### [facility] [address] [place] [id number] Vertical Contour Band Saw Operator: Kehinde Woodward MD Hemoglobin (Bld) [Mass/Vol] 7.4 g/dL Low 13.0-17.0 [facility] Comment on above: Performed By: #### H H #### [facility] [address] [place] [id number] Vertical Contour Band Saw Operator: Kehinde Woodward MD Hemoglobinon 06-01-2019 Hemoglobin (Bld) [Mass/Vol] 7.2 g/dL Low 13.0-17.0 [facility] Comment on above: Performed By: #### H GB #### [facility] [address] [place] [address] Vertical Contour Band Saw Operator: Kehinde Woodward MD K (Potassium)on 01-14-2019 Potassium [Moles/Vol] 3.6 mmol/L Low 3.7-5.3 [facility] Comment on above: Performed By: #### K #### [facility] [address] [place] [address] Vertical Contour Band Saw Operator: Kehinde Woodward MD Otheron 10-19-2018 IMPRESSION: [...] INR Coag RelTime (Bld) 1.7 {INR} High [place] B, [facility] Prothrombin time (PT) Coag time (PPP) 19.7 s High LAB, [facility] TOXICOLOGY DRUG SCREEN, SERU 10-12-2018 Drugs of abuse panel - Blood by Screen method For Medical Purposes Only, Non-forensic, screen results are presumptive. No confirmatory testing will follow. Invalid Interpretation [place] [facility], [facility] Comment on above: This Liquid [...] Amitriptyline(50), Amphetamine(250), Atenolol(500), Barbiturates(1000), Benzoylecgonine(50), Buprenorphine(50), Bupropion(25), Caffeine(79333), Chlordiazepoxide(50), Chlorpheniramine(100), Chlorpromazine(50), Citalopram(100), Clonazepam(200), Cocaine(25), Codeine(200), [...] Code LAB, [facility] TOXICOLOGY SCREEN URINE - [facility] 10-12-2018 Drugs identified Screen Nom [...] Amitriptyline(50), Amphetamine(250), Atenolol(500), Barbiturates(200), Benzoylecgonine(50), Buprenorphine(500), Bupropion(25), Caffeine(94796), Cannabinoids(THC)(50), Chlordiazepoxide(50), Chlorpheniramine(100), Chlorpromazine(50), Citalopram(100), Clonazepam(200), Cocaine(25), [...] Time Vital Sign Value Performing Clinician Facility 09-08-2024 13:40-0400 Blood Pressure Location Clementina Montesinos [facility] 09-08-2024 13:40-0400 Diastolic blood pressure 90 mm[Hg] Clementina Montesinos [facility] 09-08-2024 13:40-0400 Heart rate 66 /min Clementina Montesinos [facility] 09-08-2024 13:40-0400 Systolic blood pressure 144 mm[Hg] Clementina Montesinos [facility] 06-17-2024 08:37-0400 Body mass index (BMI) [Ratio] 29.43 kg/m2 Rebeca Gutierrez 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 Work Phone: [facility] 06-17-2024 08:37-0400 Body temperature 97.39 [degF] Rebeca Gutierrez 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 Work Phone: [facility] 06-17-2024 08:37-0400 Body weight 85.23 kg Rebeca Gutierrez 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 Work Phone: [facility] 06-17-2024 08:37-0400 Diastolic blood pressure 75 mm[Hg] Rebeca Gutierrez 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 Work Phone: [facility] 06-17-2024 08:37-0400 Heart rate 53 /min Rebeca Gutierrez 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 Work Phone: [facility] 06-17-2024 08:37-0400 Systolic blood pressure 143 mm[Hg] Rebeca Gutierrez 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 Work Phone: [facility] 06-17-2024 08:36-0400 Body mass index (BMI) [Ratio] 29.43 kg/m2 Daisha Sobotka DO Work Phone: [facility] 06-17-2024 08:36-0400 Body temperature 97.39 [degF] Daisha Sobotka DO Work Phone: [facility] 06-17-2024 08:36-0400 Body weight 85.23 kg Daisha Sobotka DO Work Phone: [facility] 06-17-2024 08:36-0400 Diastolic blood pressure 75 mm[Hg] Daisha Sobotka DO Work Phone: [facility] 06-17-2024 08:36-0400 Heart rate 53 /min Daisha Sobtiaraka DO Work Phone: [facility] 06-17-2024 08:36-0400 Systolic blood pressure 143 mm[Hg] Daisha Mtzka DO Work Phone: [facility] 02-26-2024 09:07-0400 Diastolic blood pressure 56 mm[Hg] Candie Almaguer MD Work Phone: [facility] 02-26-2024 09:07-0400 Heart rate 65 /min Candie Almaguer MD Work Phone: [facility] 02-26-2024 09:07-0400 Systolic blood pressure 113 mm[Hg] Candie Almaguer MD Work Phone: [facility] 02-26-2024 09:06-0400 Body height 170.2 cm Candie Almaguer MD Work Phone: [facility] 02-26-2024 09:06-0400 Body mass index (BMI) [Ratio] 28.9 kg/m2 Candie Almaguer MD Work Phone: [facility] 02-26-2024 09:06-0400 Body weight 83.69 kg Candie Almaguer MD Work Phone: [facility] 02-26-2024 09:06-0400 Respiratory rate 20 /min Candie Almaguer MD Work Phone: [facility] 02-26-2024 09:06-0400 SaO2% (BldA) [Mass fraction] 97 % Candie Almaguer MD Work Phone: [facility] 01-23-2024 15:04-0500 Body temperature 97.9 [degF] Kevin Prince MD Work Phone: [facility] 01-23-2024 15:04-0500 Diastolic blood pressure 67 mm[Hg] Kevin Prince MD Work Phone: [facility] 01-23-2024 15:04-0500 Heart rate 51 /min Kevin Prince MD Work Phone: [facility] 01-23-2024 15:04-0500 Respiratory rate 16 /min Kevin Prince MD Work Phone: [facility] 01-23-2024 15:04-0500 SaO2% (BldA) [Mass fraction] 94 % Kevin Prince MD Work Phone: [facility] 01-23-2024 15:04-0500 Systolic blood pressure 151 mm[Hg] Kevin Prince MD Work Phone: [facility] 01-23-2024 10:46-0500 Body mass index (BMI) [Ratio] 30.94 kg/m2 Kevin Prince MD Work Phone: [facility] 01-23-2024 10:46-0500 Body weight 89.6 kg Kevin Prince MD Work Phone: [facility] 01-18-2024 11:21-0500 Body height 170.2 cm Kevin Prince MD Work Phone: [facility] 01-06-2024 09:04-0500 Body height 170.2 cm Zuly Bruno GLOVE MACHINE OPERATOR Work Phone: [facility] 01-06-2024 09:04-0500 Body mass index (BMI) [Ratio] 32.42 kg/m2 Zuly Bruno GLOVE MACHINE OPERATOR Work Phone: [facility] 01-06-2024 09:04-0500 Body temperature 97.81 [degF] Zuly Aichholz GLOVE MACHINE OPERATOR Work Phone: [facility] 01-06-2024 09:04-0500 Body weight 93.89 kg Zulytray Torresholz GLOVE MACHINE OPERATOR Work Phone: [facility] 01-06-2024 09:04-0500 Diastolic blood pressure 70 mm[Hg] Zuly Aichholz GLOVE MACHINE OPERATOR Work Phone: [facility] 01-06-2024 09:04-0500 Heart rate 95 /min Zuly Aichholz GLOVE MACHINE OPERATOR Work Phone: [facility] 01-06-2024 09:04-0500 Respiratory rate 17 /min Zuly Aichholz GLOVE MACHINE OPERATOR Work Phone: [facility] 01-06-2024 09:04-0500 SaO2% (BldA) [Mass fraction] 99 % Zuly Lexiehholz GLOVE MACHINE OPERATOR Work Phone: [facility] 01-06-2024 09:04-0500 Systolic blood pressure 138 mm[Hg] Zuly Aichholz GLOVE MACHINE OPERATOR Work Phone: [facility] 09-11-2023 10:31-0400 Body temperature 97.81 [degF] Steve Tammy MBBS Work Phone: [facility] 09-11-2023 10:31-0400 Diastolic blood pressure 66 mm[Hg] Steve Tammy MBBS Work Phone: [facility] 09-11-2023 10:31-0400 Heart rate 70 /min Steve Tammy MBBS Work Phone: [facility] 09-11-2023 10:31-0400 Respiratory rate 20 /min Steve Tammy MBBS Work Phone: [facility] 09-11-2023 10:31-0400 SaO2% (BldA) [Mass fraction] 91 % Steve Tammy MBBS Work Phone: [facility] 09-11-2023 10:31-0400 Systolic blood pressure 129 mm[Hg] Steve Tammy MBBS Work Phone: [facility] 09-10-2023 15:50-0400 Body mass index (BMI) [Ratio] 31.99 kg/m2 Steve Tammy MBBS Work Phone: [facility] 09-10-2023 15:50-0400 Body weight 92.67 kg Steve Tammy MBBS Work Phone: 8(425)275-5339[address] [place] [address] 09-02-2023 07:32-0400 Body height 170.2 cm Steve Tammy MBBS Work Phone: 0(221)[phone] [place] [address] 08-28-2023 13:33-0400 Body height 170.2 cm Steve Tammy MBBS Work Phone: 3(889)673-560981 [place] [address] 08-28-2023 13:33-0400 Body mass index (BMI) [Ratio] 32.12 kg/m2 Steve Tammy MBBS Work Phone: 9(117)105-915[address] [place] [address] 08-28-2023 13:33-0400 Body temperature 97.3 [degF] Steve Tammy MBBS Work Phone: 6(145)126-112581 [place] [address] 08-28-2023 13:33-0400 Body weight 93.03 kg Steve Tammy MBBS Work Phone: 8(142)544-208381 [place] [address] 08-28-2023 13:33-0400 Diastolic blood pressure 41 mm[Hg] Steve Tammy MBBS Work Phone: 3(177)146-897[address] [place] [address] 08-28-2023 13:33-0400 Heart rate 116 /min Steve Tammy MBBS Work Phone: 5(214)733-520781 [place] [address] 08-28-2023 13:33-0400 Systolic blood pressure 106 mm[Hg] Steve Tammy MBBS Work Phone: 9(161)981-163581 [place] [address] 06-12-2023 14:50-0400 Body mass index (BMI) [Ratio] 33.8 kg/m2 Rebeca Gutierrez 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 Work Phone: [facility] 06-12-2023 14:50-0400 Body temperature 97.3 [degF] Rebeca Gutierrez 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 Work Phone: [facility] 06-12-2023 14:50-0400 Body weight 97.89 kg Rebeca Gutierrez 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 Work Phone: [facility] 06-12-2023 14:50-0400 Diastolic blood pressure 77 mm[Hg] Rebeca Gutierrez 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 Work Phone: [facility] 06-12-2023 14:50-0400 Heart rate 76 /min Rebeca Gutierrez 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 Work Phone: [facility] 06-12-2023 14:50-0400 Systolic blood pressure 146 mm[Hg] Rebeca Gutierrez 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 Work Phone: [facility] 01-16-2023 08:57-0500 Body height 170.2 cm [facility] Work Phone: [facility] 01-16-2023 08:57-0500 Body mass index (BMI) [Ratio] 33.66 kg/m2 [facility] Work Phone: [facility] 01-16-2023 08:57-0500 Body temperature 97.3 [degF] [facility] Work Phone: [facility] 01-16-2023 08:57-0500 Body weight 97.48 kg [facility] Work Phone: [facility] 01-16-2023 08:57-0500 Diastolic blood pressure 75 mm[Hg] [facility] Work Phone: [facility] 01-16-2023 08:57-0500 Heart rate 76 /min [facility] Work Phone: [facility] 01-16-2023 08:57-0500 Systolic blood pressure 142 mm[Hg] [facility] Work Phone: [facility] 09-10-2022 09:38-0400 Body height 170.2 cm Ryan Yepez MD Work Phone: [facility] [facility] 09-10-2022 09:38-0400 Body mass index (BMI) [Ratio] 33.67 kg/m2 Ryan Yepez MD Work Phone: [facility] 09-10-2022 09:38-0400 Body weight 97.52 kg Ryan Yepez MD Work Phone: [facility] 09-10-2022 09:38-0400 Diastolic blood pressure 83 mm[Hg] Ryan Yepez MD Work Phone: [facility] 09-10-2022 09:38-0400 Heart rate 64 /min Ryan Yepez MD Work Phone: [facility] 09-10-2022 09:38-0400 SaO2% (BldA) [Mass fraction] 96 % Ryan Yepez MD Work Phone: [facility] 09-10-2022 09:38-0400 Systolic blood pressure 129 mm[Hg] Ryan Yepez MD Work Phone: [facility] 07-07-2022 13:48-0400 Diastolic blood pressure 76 mm[Hg] Ryan Yepez MD Work Phone: [facility] 07-07-2022 13:48-0400 Heart rate 82 /min Ryan Yepez MD Work Phone: [facility] 07-07-2022 13:48-0400 SaO2% (BldA) [Mass fraction] 96 % Ryan Yepez MD Work Phone: [facility] 07-07-2022 13:48-0400 Systolic blood pressure 141 mm[Hg] Ryan Yepez MD Work Phone: 9(288)[phone] [address] 06-27-2022 13:32-0400 Body height 170.2 cm Ryan Yepez MD Work Phone: 9(502)[phone] [address] 06-27-2022 13:32-0400 Body mass index (BMI) [Ratio] 34.24 kg/m2 Ryan Yepez MD Work Phone: 3(970)[phone] [place] [address] 06-27-2022 13:32-0400 Body temperature 98.6 [degF] Ryan Yepez MD Work Phone: 9([phone])[phone] [place] [address] 06-27-2022 13:32-0400 Body weight 99.16 kg Ryan Yepez MD Work Phone: 5(758)[phone] [address] 06-27-2022 13:32-0400 Diastolic blood pressure 78 mm[Hg] Ryan Yepez MD Work Phone: 6(346)[phone] [address] 06-27-2022 13:32-0400 Heart rate 77 /min Ryan Yepez MD Work Phone: [facility] 06-27-2022 13:32-0400 SaO2% (BldA) [Mass fraction] 95 % Ryan Yepez MD Work Phone: [facility] 06-27-2022 13:32-0400 Systolic blood pressure 121 mm[Hg] Ryan Yepez MD Work Phone: 4(056)[phone] [address] 06-27-2022 10:52-0400 Body height 170.2 cm Rena Brewster RN [facility] 06-27-2022 10:52-0400 Body mass index (BMI) [Ratio] 34.46 kg/m2 Rena Brewster RN [facility] 06-27-2022 10:52-0400 Body temperature 98.2 [degF] Rena Brewster RN [facility] 06-27-2022 10:52-0400 Body weight 99.79 kg Rena Brewster RN [facility] 06-27-2022 10:52-0400 Diastolic blood pressure 73 mm[Hg] Rena Brewster RN [facility] 06-27-2022 10:52-0400 Heart rate 78 /min Rena Brewster RN [facility] 06-27-2022 10:52-0400 Respiratory rate 20 /min Rena Brewster RN [facility] 06-27-2022 10:52-0400 SaO2% (BldA) [Mass fraction] 97 % Rena Brewster RN [facility] 06-27-2022 10:52-0400 Systolic blood pressure 135 mm[Hg] Rena Brewster RN [facility] 06-12-2022 14:23-0400 Body mass index (BMI) [Ratio] 34.59 kg/m2 Steve Munoz MBBS Work Phone: [facility] 06-12-2022 14:23-0400 Body temperature 97 [degF] Steve Munoz MBBS Work Phone: [facility] 06-12-2022 14:23-0400 Body weight 100.2 kg Steve Farrari MBBS Work Phone: [facility] 06-12-2022 14:23-0400 Diastolic blood pressure 66 mm[Hg] Steve Farrari MBBS Work Phone: [facility] 06-12-2022 14:23-0400 Heart rate 63 /min Steve Farrari MBBS Work Phone: [facility] 06-12-2022 14:23-0400 Systolic blood pressure 133 mm[Hg] Steve LEIGH Work Phone: [facility] 05-20-2022 15:21-0400 Body temperature 97.9 [degF] Gian Villatoro MD Work Phone: [facility] 05-20-2022 15:21-0400 Diastolic blood pressure 64 mm[Hg] Gian Villatoro MD Work Phone: [facility] 05-20-2022 15:21-0400 Heart rate 55 /min Gian Villatoro MD Work Phone: [facility] 05-20-2022 15:21-0400 Respiratory rate 15 /min Gian Villatoro MD Work Phone: [facility] 05-20-2022 15:21-0400 SaO2% (BldA) [Mass fraction] 95 % Gian Villatoro MD Work Phone: [facility] 05-20-2022 15:21-0400 Systolic blood pressure 145 mm[Hg] Gian Villatoro MD Work Phone: [facility] 05-19-2022 12:15-0400 Body mass index (BMI) [Ratio] 35.87 kg/m2 Gian Villatoro MD Work Phone: [facility] 05-19-2022 12:15-0400 Body weight 103.92 kg Gian Villatoro MD Work Phone: [facility] Comment on above: standing scale 05-16-2022 16:19-0400 Body height 170.2 cm Gian Villatoro MD Work Phone: [facility] 10-19-2018 08:44-0500 BMI (Body Mass Index) 26.58 kg/m2 [facility] Work Phone: 10-19-2018 08:44-0500 BP Diastolic 76 mm[Hg] [facility] Work Phone: 10-19-2018 08:44-0500 BP Systolic 144 mm[Hg] [facility] Work Phone: 10-19-2018 08:44-0500 Height 172.7 cm [facility] Work Phone: 10-19-2018 08:44-0500 Pulse (Heart Rate) 92 /min [facility] Work Phone: 10-19-2018 08:44-0500 Pulse Oximetry 99 % [facility] Work Phone: 10-19-2018 08:44-0500 Respiratory Rate 16 /min [facility] Work Phone: 10-19-2018 08:44-0500 Weight 79.29 kg [facility] Work Phone: 10-12-2018 09:50-0500 BMI (Body Mass Index) 27.24 kg/m2 [facility] Work Phone: 10-12-2018 09:50-0500 Body Temperature 98.6 [degF] [facility] Work Phone: 10-12-2018 09:50-0500 BP Diastolic 80 mm[Hg] [facility] Work Phone: 10-12-2018 09:50-0500 BP Systolic 157 mm[Hg] [facility] Work Phone: 10-12-2018 09:50-0500 Height 169.5 [facility] Work Phone: 10-12-2018 09:50-0500 Pulse (Heart Rate) 94 /min [facility] Work Phone: 10-12-2018 09:50-0500 Weight 78.29 kg [facility] Work Phone: Encounters Encounter Date Encounter Type Care Provider Facility Start: 11-22-2024 ambulatory Steph Almodovar [facility] y:DOTTIE Marie Start: 09-08-2024 End: 09-08-2024 ambulatory ZULY BRUNO Facility:[facility] Start: 09-08-2024 End: 09-08-2024 Patient encounter procedure Clementina Montesinos [facility] Start: 09-07-2024 ambulatory ZULY BRUNO Facility: [facility] Start: 09-05-2024 End: 09-05-2024 ambulatory Angel Madsene LIVIAh,PharmD Pharmacy Outpatient [facility] Start: 09-05-2024 End: 09-05-2024 Patient encounter procedure Angel Madsene LIVIAh,PharmD Pharm[facility] Start: 08-24-2024 ambulatory Steph Almodovar Facility: [facility] Start: 08-23-2024 End: 08-23-2024 ambulatory ZULY BRUNO Not Available Start: 06-23-2024 End: 06-23-2024 ambulatory Meka Munoz [facility] Out[facility] Start: 06-23-2024 End: 06-23-2024 Patient encounter procedure Meka Munoz [facility] Outpatient [facility] Start: 06-17-2024 End: 06-17-2024 Office outpatient visit 25 minutes Daisha Max DO Work Phone: [facility] Comment on above: Liver lesion (Primar y Dx); Liver transplant recipient; High risk medication use; Therapeutic drug monitoring; 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) Start: 06-17-2024 ambulatory DAISHA Joyner ity:[facility] Start: 05-26-2024 End: 05-26-2024 ambulatory Evan Bolton [facility],PharmD Pharmacy Outpatient [facility] Start: 05-26-2024 End: 05-26-2024 Patient encounter procedure Evan Bolton [facility],PharmD Pharmacy Outpatient [facility] Start: 05-13-2024 End: 05-13-2024 ambulatory [facility] Start: 04-18-2024 End: 04-18-2024 ambulatory ZULY BRUNO Not Available Start: 03-24-2024 End: 03-24-2024 Patient encounter procedure Angel Carpio [facility],PharmD Pharmacy Outpatient [facility] Start: 03-24-2024 End: 03-24-2024 ambulatory Angel Carpio [facility],PharmD Pharmacy Outpatient [facility] Start: 03-22-2024 End: 03-22-2024 ambulatory JOHNNA BRINK [...] [place] [facility] Start: 03-02-2024 End: 03-02-2024 Patient encounter procedure Meka Munoz [facility] Start: 03-01-2024 ambulatory ZULY BRUNO Facility: [facility] Start: 03-01-2024 End: 03-01-2024 ambulatory JOHNNA BRINK Not Available Start: 02-26-2024 ambulatory CANDIE ALMAGUER Facility: [facility] Start: 02-26-2024 End: 02-26-2024 Office outpatient new 30 minutes Candie Almaguer MD Work Phone: [facility] Comment on above: Heart failure, diast olic, acute (Primary Dx) Start: 02-26-2024 ambulatory KELVINMASSIEL PACHECO Facility: [facility] Start: 02-25-2024 End: 02-25-2024 ambulatory FIDELINA SANCHEZ Not Available Start: 02-23-2024 End: 02-23-2024 ambulatory PALMA Edwards SUZANNE Not Available Start: 02-11-2024 End: 02-11-2024 ambulatory ZULY BRUNO Not Available Start: 01-16-2024 End: 01-23-2024 Encounter for other preprocedural examination KELVIN PACHECO Facility:[facility] Start: 01-16-2024 End: 01-23-2024 Evaluation and management of inpatient Kevin Prince MD Work Phone: [facility] Comment on above: Pleural effusion on right Start: 01-16-2024 End: 01-23-2024 Patient encounter status Kevin Prince MD Work Phone: [facility] Work Phone: Start: 01-12-2024 End: 01-12-2024 ambulatory Angel Fete RPh,PharmD Pharmacy Outpatient [facility] Start: 01-12-2024 End: 01-12-2024 Patient encounter procedure Angel Fete RPh,PharmD Pharmacy [facility] Start: 01-08-2024 Clinisync Result Encounter Generic External Data Provider [facility] External Department Unsolicited Start: 01-08-2024 Clinisync Result Encounter Generic External Data Provider [facility] External Department Unsolicited Start: 01-06-2024 End: 01-06-2024 Office outpatient visit 25 minutes Zuly Bruno GLOVE MACHINE OPERATOR Work Phone: [facility] Comment on above: Bilateral lower extr emity edema (Primary Dx); 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); Atherosclerosis 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); Obesity (BMI 30-39.9); DARLENE (obstructive sleep apnea); Tremor; Immunocompromised ([facility]); Primary hypertension ([facility]); Shortness of breath Start: 01-06-2024 End: 01-06-2024 ambulatory ZULY AICHHOLZ Not Available Start: 01-01-2024 Clinisync Result Encounter Generic External Data Provider [facility] External Department Unsolicited Start: 01-01-2024 Clinisync Result Encounter Generic External Data Provider [facility] External Department Unsolicited Start: 11-03-2023 End: 11-03-2023 ambulatory ZULY AICHHOLZ Not Available Start: 10-06-2023 ambulatory Angel Carpio [facility],PharmD Pharmacy Outpatient [facility] Start: 10-06-2023 Patient encounter procedure Angel Carpio [facility],PharmD Pharmacy Outpatient [facility] Start: 09-29-2023 [facility] Start: 09-23-2023 [facility] Start: 09-15-2023 [facility]ulatory [facility] Start: 08-28-2023 End: 09-11-2023 Evaluation and management of inpatient Steve MORENOBS Work Phone: [id number] Start: 08-28-2023 End: 08-28-2023 Office outpatient visit 25 minutes Steve Munoz MBBS Work Phone: [facility] Comment on above: Immunosuppressed sta tus (Primary Dx); Kidney replaced by transplant; Aftercare following organ transplant; High risk medication use; Other general symptoms and signs; Abnormal blood chemistry; Hypertension secondary to other renal disorders Start: 08-19-2023 ambulatory Meka rueda [facility] Pharmacy Outpatient [facility] Start: 08-19-2023 Patient encounter procedure Meka Munoz [facility] Pharm[facility] Outpatient [facility] Start: 06-12-2023 End: 06-12-2023 Office outpatient visit 25 minutes Steve Munoz MBBS Work Phone: [facility] Comment on above: 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) Start: 06-10-2023 ambulatory Maren Bar RPh,PharmD Pharmacy Outpatient [facility] Start: 06-10-2023 Patient encounter procedure Maren Bar RPh,PharmD Pharm[facility]patient [facility] Start: 04-28-2023 End: 04-29-[address] DOCTOR EVANS Facility:[facility] Start: 03-12-2023 ambulatory Angel Madsene RPh,PharmD Pharmacy [...] 25 minutes Daisha Max DO Work Phone: [facility] Comment on above: Abnormal blood chemi stry (Primary Dx); Liver transplant recipient; Kidney replaced by transplant; Immunosuppressed status; Aftercare following organ transplant Start: 12-29-2022 End: 12-30-[address] DOCTOR VEANS Facility:[facility] Start: 11-04-2022 End: 11-05-[address] DOCTOR EVANS Facility:[facility] Start: 09-15-2022 End: 09-16-[address] DOCTOR EVANS Facility:[facility] Start: 09-10-2022 End: 09-10-2022 Office outpatient visit 25 minutes Ryan Yepez MD Work Phone: [facility] Comment on above: BPH with obstruction /lower urinary tract symptoms (Primary Dx); Encounter for screening for malignant neoplasm of prostate Start: 08-28-2022 End: 08-29-2022 ambulatory ROB BRUNO Facility:[facility] Start: 08-14-2022 End: 08-15-[address] DOCTOR EVANS Facility:[facility] Start: 07-07-2022 End: 07-07-2022 Patient encounter procedure Ryan Yepez MD Work Phone: [facility] Comment on above: Other hydronephrosis (Primary Dx); [...] MD Work Phone: [facility] Comment on above: Other hydronephrosis (Primary Dx) [...] of inpatient Gian Villatoro MD Work Phone: [email or web address] Comment on above: FAYE (acute kidney in [facility]) Start: 05-15-2022 End: 05-15-[address] GEORGE LAWRENCE Facility: Start: 05-11-2022 End: 05-11-[address] GEORGE LAWRENCE Facility: Start: 03-14-2022 ambulatory Comfort Rivera [facility] Work Phone: Pharmacy Outpatient [facility] Start: 03-14-2022 Patient encounter procedure Comfort Rivera [facility] Work Phone: Pharm[facility] Outpatient [facility] Start: 06-14-2021 End: 06-14-2021 ambulatory Comfort Rivera [facility] Work Phone: [facility] Start: 06-14-2021 Patient encounter procedure Comfort Rivera [facility] Work Phone: [facility] Start: 01-20-2020 End: 01-27-2020 Patient encounter procedure PEPE CASE Facility:[facility] Start: 01-06-2020 End: 01-07-2020 Patient encounter procedure [facility] Start: 01-06-2020 End: 01-06-2020 Subsequent hospital visit by physician [facility] Start: 10-24-2019 End: 10-25-2019 [facility] Start: 10-24-2019 End: 10-24-2019 Subsequent hospital visit by physician [facility] Start: 08-27-2019 End: 08-28-2019 Patient encounter procedure [facility] Start: 08-27-2019 End: 08-27-2019 Subsequent hospital visit by physician [facility] Start: 08-08-2019 End: 08-09-2019 Patient encounter procedure [facility] Start: 08-08-2019 End: 08-08-2019 Subsequent hospital visit by physician [facility] Start: 08-03-2019 End: 08-04-2019 Patient encounter procedure [facility] Start: 08-03-2019 End: 08-03-2019 Subsequent hospital visit by physician [facility] Start: 08-01-2019 End: 08-02-2019 Patient encounter procedure ROB PATINO [facility] Start: 08-01-2019 End: 08-01-2019 Subsequent hospital visit by physician [facility] Start: 06-10-2019 End: 06-11-2019 Patient encounter procedure RENA GUDINO [facility] Start: 06-01-2019 End: 06-02-2019 Patient encounter procedure RENA GUDINO [facility] Start: 01-14-2019 End: 01-15-2019 Patient encounter procedure RENA GUDINO [facility] Start: 11-17-2018 End: 11-17-2018 Patient encounter procedure Fidelina Pierson [facility] Pre Trans[facility] Office Comment on above: Social Work Follow-u p Start: 10-19-2018 End: 10-19-2018 Patient encounter [facility] Comment on above: [...] End: 10-12-2018 Patient encounter procedure Sophie Raeann [facility] Comment on above: Alcoholic cirrhosis, unspecified whether ascites present (Primary Dx); Pre-transplant evaluation for liver transplant Start: 10-12-2018 End: 10-12-2018 Office outpatient new 60 minutes Alfredito Restrepo Work Phone: [facility] Pre Trans[facility] Comment on above: Alcoholic cirrhosis, unspecified whether ascites present; ESRD (end stage renal disease) on dialysis; Pre-transplant evaluation for liver transplant Start: 10-06-2018 End: 10-06-2018 Patient encounter procedure Yovani Orr Work Phone: Department of Radiology Comment on above: Canceled (Insurance Company Redirected Pt) Start: 10-05-2018 Patient encounter status Comfort Rivera [facility] Work Phone: [facility] Procedures Date Procedure Procedure Detail Performing Clinician Start: 09-08-2024 History of renal transplant Clementinapattie Montesinos Start: 09-07-2024 Follow-up visit Follow-up ANN WHITE Start: 01-23-2024 Glucose measurement, blood Kelvin Pacheco [...] MD Work Phone: Start: 01-22-2024 Antibody screen CANDIE ALMAGUER Comment on above: Performed By: #### C HM7, HFP, MGO #### [facility] (DEFAULT) [address] [place] [id number] Start: 01-22-2024 Assay of magnesium Just in [...] Phone: Start: 01-20-2024 ITRACONAZOLE LEVEL Jennifer Alarcon [facility] Work [...] each organism Fidelina Alarcon [facility] Work Phone: Start: 01-18-2024 Echo tthrc r-t 2d w/wom-mode [...] SCREEN BY PCR Carol Ann Capps CHIEF CONTRACT OFFICER-STAFF ASSISTANT Work Phone: Start: 01-08-2024 ALL CBC WITH AUTO DIFF Generic External Data Provider Start: 01-01-2024 ALL CBC WITH AUTO DIFF Generic External Data Provider Start: 09-11-2023 Glucose measurement, blood Kevin Prince MD Work Phone: Start: 09-11-2023 Assay of magnesium Milton gris Kelly MD Work Phone: Start: 09-11-2023 Drug [...] SCREEN BY PCR Carol Ann Capps CHIEF CONTRACT OFFICER-STAFF ASSISTANT Work Phone: Start: 08-28-2023 CBC AND ELECTRONIC [...] MP #### [facility] [address] [place] [address] Dr. Dwight Waters Start: 07-07-2022 Rmvl nfros tube req fluoro guidance Ryan Yepez MD Work Phone: Start: 06-27-2022 Ct abdomen & pelvis w/o contrast material Evan Byrd MD Work Phone: Start: 06-12-2022 Culture bct isol&prs mptv id isolate ea urine Steve Farrari MBBS Work Phone: Start: 06-12-2022 EXTRA MICRO Steve S Nor i MBBS Work Phone: Start: 06-12-2022 Hemoglobin glycosyla rukhsana a1c Steve Farrari MBBS Work Phone: Start: 06-12-2022 Hepatic function panel Yovani Orr MD Work Phone: Start: 06-12-2022 URINALYSIS REFLEX TO CULTURE Steve Munoz MB Work Phone: Start: 05-20-2022 Urography antegrade rs&i [...] trans plant Comfort Rivera [facility] transplant -donor kidney transplant recipient Comfort Rivera [facility] Work Phone: Start: 06-10-2019 HEMOGLOBIN AND HEMAT OCRIT, BLOOD ROB KASDEYVII Start: 06-01-2019 Blood count hemoglobin ROB KASMANI [...] End: 10-12-2018 Antibody cytomegalovirus cmv Yovani Mejias [employer] Work Phone: Start: 10-12-2018 End: 10-12-2018 Antibody dann-montes eb virus viral capsid vca Yovani Mejias [employer] Work Phone: Start: 10-12-2018 End: 10-12-2018 Antibody herpes smplx type 1 Yovani Mejias [employer]o [employer] Work Phone: Start: 10-12-2018 End: 10-12-2018 Antibody rubeola Oyvani Magalie Dominga Work Phone: Start: 10-12-2018 End: 10-12-2018 Antibody varicella-zoster Yovani Orr Work Phone: Start: 10-12-2018 End: 10-12-2018 Assay of ethanol Yovani Orr Work Phone: Start: 10-12-2018 End: 10-12-2018 Assay of ferritin Yovani Mejias [employer] Work Phone: Start: 10-12-2018 End: 10-12-2018 Assay of iron Yovani Mejias [employer] Work Phone: Start: 10-12-2018 End: 10-12-2018 Assay of parathormone Yovani Mejias [employer] Work Phone: Start: 10-12-2018 End: 10-12-2018 Assay of phosphatase alkaline Yovani Orr [employer] Phone: Start: 10-12-2018 End: 10-12-2018 Bilirubin total Yovani Orr Work Phone: Start: 10-12-2018 End: 10-12-2018 Calcium total Yovani Mejias [employer] [employer] Work Phone: Start: 10-12-2018 End: 10-12-2018 CBC, EDIF, PLATELET Yovani Orr Work Phone: Start: 10-12-2018 End: 10-12-2018 Creatinine blood Yovani Orr Work Phone: Start: 10-12-2018 End: 10-12-2018 Drug screening cannabinoids natural Yovani Orr Work Phone: Start: 10-12-2018 End: 10-12-2018 Hepatitis a antibody haab Yovani [employer] Work Phone: Start: 10-12-2018 End: 10-12-2018 Hepatitis [...] renal transplant Kidney replaced by transplant Steve LEIGH Work Phone: History of renal transplant -donor kidney transplant recipient Ryan Yepez MD Work Phone: History of renal transplant Kidney replaced by transplant Daisha A Sobotka DO Work Phone: History of renal transplant Kidney replaced by transplant Stevemassiel Munoz MBBS Work Phone: History of renal transplant Kidney replaced by transplant Stevemassiel Munoz MBBS Work Phone: History of renal transplant -donor kidney transplant recipient Steve Munoz MBBS Work Phone: History of renal transplant Kidney replaced by transplant Rebeca M Gutierrez 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 Work Phone: Plan of Treatment Date Care Activity Detail Author Start: 09-20-2029 Screening for malignant neoplasm of colon [facility] Start: 08-15-2025 Potassium [Moles/volume] in Serum or Plasma POTASSIUM [facility] Start: 07-04-2025 Potassium [Moles/volume] in Serum or Plasma POTASSIUM [facility] Start: 06-20-2025 Potassium [Moles/volume] in Serum or Plasma POTASSIUM [facility] Start: 06-16-2025 End: 06-16-2025 Patient encounter procedure [facility] Start: 06-13-2025 Potassium [Moles/volume] in Serum or Plasma POTASSIUM [facility] Start: 05-23-2025 Potassium [Moles/volume] in Serum or Plasma POTASSIUM [facility] Start: 03-28-2025 Potassium [Moles/volume] in Serum or Plasma POTASSIUM [facility] Start: 03-21-2025 Potassium [Moles/volume] in Serum or Plasma POTASSIUM [facility] Start: 02-28-2025 Potassium [Moles/volume] in Serum or Plasma POTASSIUM [facility] Start: 01-23-2025 Potassium [Moles/volume] in Serum or Plasma POTASSIUM [facility] Start: 09-07-2024 End: 09-07-2024 Telemedicine consultation with patient 09/07/2024 3:00 PM EDT Telemedicine Infectious Diseases Care [facility] [address] [place] [address] Evan White DO [address] [place] [address] Infect[facility] Start: 08-31-2024 Screening for malignant neoplasm of lung [facility] Start: 07-31-2024 Influenza vaccination INFLUENZA VACCINE (#1) [facility] Start: 06-17-2024 End: 06-17-2024 ambulatory [facility] Start: 06-17-2024 End: 06-17-2024 Patient encounter procedure [facility] Start: 03-22-2024 Fasting lipid profile LIPID SCREENING [facility] Start: 03-22-2024 Lipid panel [facility] Start: 02-26-2024 End: 02-26-2024 Patient encounter procedure 02/26/2024 9:30 AM EDT Office Visit [facility] [address] [place] [phone] Candie Almaguer MD [address] [place] [phone] [facility] Start: 02-11-2024 End: 02-11-2024 Patient encounter procedure 02/11/2024 10:30 AM EDT Office Visit [facility] [address] [place] [address] Zuly Bruno NP [address] [place] [address] [facility] Start: 02-09-2024 End: 02-09-2024 Telemedicine consultation with patient 02/09/2024 3:30 PM EDT Telemedicine Infectious Diseases [facility] [address] [place] [phone] Hakeem Alamo MD [address] [place] [address] Infectious [facility] Start: 01-15-2024 End: 01-15-2024 ambulatory [facility] Transplant [facility] Start: 01-15-2024 End: 01-15-2024 Patient encounter procedure [facility] Start: 01-06-2024 End: 01-06-2026 Echocardiogram 2D complete Echocardiogram 2D complete Echocardiography Routine DARLENE (obstructive sleep apnea) Primary hypertension (CMS/HCC) Bilateral lower extremity edema Shortness of breath Expected: 01/06/2024 (Approximate), Expires: 01/06/2026 [facility] Work Phone: Comment on above: Expected: 01/06/2024 (Approximate), Expi res: 01/06/2026 Start: 01-06-2024 End: 01-06-2024 Patient encounter procedure 01/06/2024 9:00 AM EST [facility] [address] [place] [phone] Zuly Bruno NP [address] [place] [address] [facility] Start: 12-08-2023 End: 09-07-2024 CT Chest WO contrast [facility] Work Phone: Start: 12-01-2023 COVID-19 VACCINE (2 - Moderna risk series) COVID-19 VACCINE (2 - Moderna risk series) [facility] Start: 09-23-2023 End: 09-23-2023 ambulatory [facility] Start: 09-23-2023 End: 09-23-2023 Telemedicine consultation with patient 09/23/2023 4:00 PM EDT Telemedicine Infectious Diseases Care [facility] [address] [place] [phone] Hakeem Alamo MD [address] [place] [address] Infectious Diseases Care [facility] Start: 09-15-2023 End: 09-10-2024 ITRACONAZOLE LEVEL [facility] Start: 08-25-2023 End: 08-25-2024 ALLOSCREEN RECIPIENT (POST TX PRA) ALLOSCREEN RECIPIENT (POST TX PRA) Lab Routine Kidney replaced by transplant Aftercare following organ transplant Immunosuppressed status High risk medication use Other general symptoms and signs Abnormal blood chemistry Expected: 08/25/2023, Expires: 08/25/2024 [facility] Comment on above: Expected: 08/25/2023, Expires: Start: 07-31-2023 Influenza vaccination [facility] Start: 06-12-2023 End: 06-12-2023 Patient encounter procedure 06/12/2023 Office Visit Transplant Surgery Steve Munoz MBBS [address] [place] [address] [facility] Trans[facility] Start: 03-11-2023 End: 03-11-2023 Telemedicine consultation with patient 03/11/2023 Telemedicine Urology Ryan Yepez MD [address] [place] [address] [facility] Start: 01-16-2023 End: 01-16-2023 Patient encounter procedure 01/16/2023 Office Visit Transplant Surgery [facility] Transplant [facility] Start: 10-31-2022 End: 10-31-2022 Patient encounter procedure 10/31/2022 Office Visit Transplant Surgery Steve Munoz MBBS [address] [place] [address] [facility] Transplant [facility] Start: 09-10-2022 End: 09-10-2023 PSA screening PSA, SCREENING Lab Routine BPH with obstruction/lower urinary tract symptoms Encounter for screening for malignant neoplasm of prostate Expected: 09/10/2022 (Approximate), Expires: 09/10/2023 [facility] Comment on above: Expected: 09/10/2022 (Approximate), Expi res: 09/10/2023 Start: 08-11-2022 End: 08-11-2022 Patient encounter procedure 08/11/2022 Office Visit Ryan Webster MD [address] [place] [address] Urolog [facility] Start: 07-31-2022 Influenza vaccination [facility] Start: 07-07-2022 End: 07-07-2022 Patient encounter procedure 07/07/2022 Office Visit Ryan Webster MD [address] [place] [address] [facility] Start: 07-07-2022 End: 07-07-2023 FLUORO IMAGING FOR UROLOGY [facility] Comment on above: Expected: 07/07/2022, Expires: 3 1 Occurrences starti ng 07/07/2022 until 07/07/2022 Start: 06-27-2022 End: 06-27-2022 Patient encounter procedure 06/27/2022 Office Visit Ryan Webster MD [address] [place] [address] [facility] Start: 06-27-2022 End: 06-27-2023 Basic metabolic 2000 panel - Serum or Plasma BASIC METABOLIC PANEL Lab Routine Other hydronephrosis Expected: 06/27/2022, Expires: 06/27/2023 [facility] Comment on above: Expected: 06/27/2022, Expires: 3 Start: 06-27-2022 End: 06-27-2022 Patient encounter procedure 06/27/2022 Appointment Computerized Tomography Scan Ryan Yepez MD [address] [place] [phone] Department of Radiology Start: 06-15-2022 End: 05-16-2023 CT Abdomen and Pelvis WO contrast CT ABDOMEN/PELVIS WITHOUT CONTRAST Imaging Routine FAYE (acute kidney injury) Expected: 06/15/2022 (Approximate), Expires: 05/16/2023 [facility] Work Phone: Comment on above: Expected: 06/15/2022 (Approximate), Expi res: 05/16/2023 Start: 06-12-2022 End: 06-12-2022 Patient encounter procedure 06/12/2022 Office Visit Transplant Surgery Steve Munoz MBBS [address] [place] [address] [facility] Start: 06-11-2022 End: 06-11-2023 BK VIRUS DNA QN, PCR, PLASMA BK VIRUS DNA QN, PCR, PLASMA Lab Routine Kidney replaced by transplant Liver replaced by transplant Abnormal blood chemistry Expected: 06/11/2022, Expires: 06/11/2023 [facility] Comment on above: Expected: 06/11/2022, Expires: Start: 06-04-2022 End: 06-04-2022 Patient encounter procedure 06/04/2022 Office Visit [facility] Start: 10-18-2021 End: 10-18-2021 Patient encounter procedure 10/18/2021 Office Visit Transplant Surgery Steve Munoz MBBS [address] [place] [address] [facility] Start: 07-31-2021 Influenza vaccination INFLUENZA VACCINE (#1) [facility] Start: 07-26-2021 End: 07-26-2021 Patient encounter procedure 07/26/2021 Office Visit Transplant Surgery [facility] Start: 2021 Prostate specific antigen measurement [facility] Start: 2021 Screening for malignant neoplasm of lung LUNG CANCER SCREENING [facility] Start: 2021 Zoster vaccine hzv live for subcutaneous use ZOSTER (SHINGLES) VACCINE (1 of 2) [facility] Start: 09-20-2020 Colonoscopy COLORECTAL CANCER SCREENING DISCUSSION [facility] Start: 09-20-2020 Screening for malignant neoplasm of colon [facility] Start: 07-31-2019 Influenza vaccination Flu vaccine (#1) [place] Start: 05-22-2019 Annual Wellness Visit (AWV) Annual Wellness Visit (AWV) [place] Start: 04-18-2019 End: 10-19-2019 Ultrasonography of abdomen US ABDOMEN RUQ/LIVER/GB Routine Cirrhosis of liver without ascites, unspecified hepatic cirrhosis type Expected: 04/18/2019 (Approximate), Expires: 10/19/2019 [facility] Work Phone: Comment on above: Expected: 04/18/2019 (Approximate), Expi res: 10/19/2019 Start: 01-25-2019 End: 01-25-2019 Ambulatory 01/25/2019 Office Visit Gastroenterology Christin Elizabeth, 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 [address] [place] [address] Division of Gastroenterology and Hepatology Gavin Start: 11-19-2018 End: 11-19-2018 Ambulatory 11/19/2018 Appointment [facility] Start: 11-19-2018 End: 11-19-2018 Ambulatory [facility] Start: 10-19-2018 End: 10-19-2018 Ambulatory Ultrasound Jakob Start: 10-12-2018 End: 10-12-2019 Hemoglobin A1c/Hemoglobin.total mass fraction (Bld) HEMOGLOBIN A1C Routine Alcoholic cirrhosis, unspecified whether ascites present Pre-transplant evaluation for liver transplant Expected: 10/12/2018, Expires: 10/12/2019 [facility] Work Phone: Comment on above: Expected: 10/12/2018, Expires: 9 Start: 10-12-2018 End: 10-12-2019 TYPE AND SCREEN - NOT FOR TRANSFUSION TYPE AND SCREEN - NOT FOR TRANSFUSION Routine Alcoholic cirrhosis, unspecified whether ascites present Pre-transplant evaluation for liver transplant Expected: 10/12/2018, Expires: 10/12/2019 [facility] Work Phone: Comment on above: Expected: 10/12/2018, Expires: 9 Start: 07-31-2018 Influenza vaccination INFLUENZA VACCINE (#1) [facility] Work Phone: Start: 2011 Fasting lipid profile LIPID SCREENING [facility] Work Phone: Start: 2011 Lipid screen Lipid screen [place] Start: 1990 DTaP/Tdap/Td vaccine (1 - Tdap) DTaP/Tdap/Td vaccine (1 - Tdap) [place] Start: 1990 Hepatitis B vaccination HEP B VACCINE (1 of 3 - 19+ 3-dose series) [facility] Start: 1990 Hepatitis B Vaccine (1 of 3 - Risk Recombivax 3-dose series) Hepatitis B Vaccine (1 of 3 - Risk Recombivax 3-dose series) [place] Start: 1990 Third diphtheria, tetanus and acellular pertussis (DTaP) vaccination [facility] Start: 1990 Zoster vaccine hzv live for subcutaneous use ZOSTER (SHINGLES) VACCINE (1 of 2) [facility] Start: 1990 [facility] Start: 1989 Tetanus vaccination TETANUS [facility] Start: 1986 HIV screen HIV screen [place] Start: 02-17-1984 HIV screening HIV SCREENING DISCUSSION [facility] Work Phone: Start: 1983 COVID-19 VACCINE (1) COVID-19 VACCINE (1) [facility] Start: 1982 DTaP/Tdap/Td vaccine (1 - Tdap) DTaP/Tdap/Td vaccine (1 - Tdap) [place] Start: 1977 Pneumococcal 0-64 years Vaccine (1 of 3 - PCV13) Pneumococcal 0-64 years Vaccine (1 of 3 - PCV13) [place] Start: 1977 PNEUMOCOCCAL VACCINE SERIES (1 - PCV) PNEUMOCOCCAL VACCINE SERIES (1 - PCV) [facility] Start: 1977 PNEUMOCOCCAL VACCINE SERIES (1 of 2 - PCV) PNEUMOCOCCAL VACCINE SERIES (1 of 2 - PCV) [facility] Start: 1977 [facility] Start: 02-17-1976 COVID-19 VACCINE (#1) COVID-19 VACCINE (#1) [facility] Start: 02-17-1976 [facility] Start: 1971 COVID-19 VACCINE (#1) COVID-19 VACCINE (#1) [facility] Start: 1971 Hepatitis B vaccination HEP B VACCINE (1 of 3 - 3-dose series) [facility] Start: 1971 Medicare Annual Wellness (AWV) Medicare Annual Wellness (AWV) [facility] Start: 1971 Screening for malignant neoplasm of colon [facility] Start: 1971 Tetanus vaccination [facility] BK VIRUS DNA QN, PCR , PLASMA BK VIRUS DNA QN, PCR, PLASMA Lab Routine Kidney replaced by transplant Liver replaced by transplant Abnormal blood chemistry 06/12/2022 3:38 PM EDT [facility] CALCULI, URINARY (KIDNEY STONE) CALCULI, URINARY (KIDNEY STONE) Fluids Routine 05/19/2022 8:16 AM EDT [facility] Work Phone: CANNABINOIDS, QUANT (URINE)THC CONFIRMATION CANNABINOIDS, QUANT (URINE)THC CONFIRMATION Routine Alcoholic cirrhosis, unspecified whether ascites present ESRD (end stage renal disease) on dialysis Pre-transplant evaluation for liver transplant 10/12/2018 12:57 PM EST [facility] Work Phone: End: 09-10-2024 CHEM 6 (LYTES, BUN CREA) [facility] EBV VCA IGG AB EBV VCA IGG AB R outine Alcoholic cirrhosis, unspecified whether ascites present ESRD (end stage renal disease) on dialysis Pre-transplant evaluation for liver transplant 10/12/2018 12:57 PM [facility] Work Phone: Fungus identified in Unspecified specimen by Culture [facility] HLA TYPING (SOLID ORGAN) HLA TYPING (SOLID ORGAN) Routine Alcoholic cirrhosis, unspecified whether ascites present ESRD (end stage renal disease) on dialysis Pre-transplant evaluation for liver transplant 10/12/2018 12:57 PM [facility] Work Phone: HSV 1 AND 2 IGG ANTIBODY HSV 1 AND 2 IGG ANTIBODY Routine Alcoholic cirrhosis, unspecified whether ascites present ESRD (end stage renal disease) on dialysis Pre-transplant evaluation for liver transplant 10/12/2018 12:57 PM [facility] Work Phone: MR Abdomen WO and W contrast IV MRI ABDOMEN WITH AND WITHOUT CONTRAST Imaging Routine Liver lesion Ordered: 06/17/2024 [facility] Comment on above: Ordered: 06/17/2024 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 specific culture [facility] PLACEMENT NEPHROSTOM Y CATHETER PERCUTANEOUS W/ IMAGE GUIDANCE PLACEMENT NEPHROSTOMY CATHETER PERCUTANEOUS W/ IMAGE GUIDANCE Imaging Routine Hydronephrosis due to obstruction of ureteral orifice FAYE (acute kidney injury) 05/17/2022 11:08 AM EDT [facility] [place] POST VOID RESIDUAL [place] POST VO ID RESIDUAL TN - OFFICE PERFORMED Routine BPH with obstruction/lower urinary tract symptoms Ordered: 09/10/2022 [facility] Comment on above: Ordered: 09/10/2022 PTH INTACT PTH INTACT Routi ne Alcoholic cirrhosis, unspecified whether ascites present ESRD (end stage renal disease) on dialysis Pre-transplant evaluation for liver transplant 10/12/2018 12:57 PM [facility] Work Phone: RUBEOLA IGG AB (IMMU NE STATUS) RUBEOLA IGG AB (IMMUNE STATUS) Routine Alcoholic cirrhosis, unspecified whether ascites present ESRD (end stage renal disease) on dialysis Pre-transplant evaluation for liver transplant 10/12/2018 12:57 PM [facility] Work Phone: End: 01-16-2024 Standard ECG ECG ECG Routine One Time for 1 Occurrences starting 01/16/2024 until 01/16/2024 [facility] Comment on above: One Time for 1 Occurrences starting 12/31 until 01/16/2024 End: 09-10-2024 TACROLIMUS LEVEL, TROUGH (PRE DRUG LEVEL) [facility] VARICELLA IGG AB (IM M STATUS) VARICELLA IGG AB (IMM STATUS) Routine Alcoholic cirrhosis, unspecified whether ascites present ESRD (end stage renal disease) on dialysis Pre-transplant evaluation for liver transplant 10/12/2018 12:57 PM [facility] Work Phone: Immunizations Immunization Date Immunization Notes Care Provider Fa jimmyty 11-03-2023 influenza virus vacc ine, unspecified formulation Generic Provider [facility] 11-03-2023 Moderna SARS-CoV-2 50mcg/0.5mL Booster Generic Provider [facility] Payers Date Payer Category Payer Unknown [id number] 2019 Unknown [facility] [id number] 2019-Present [id number] 2018 Medicaid MEDICAID [facility] DEPT OF JOB xxxxxxxxxxxx 2018-Present [phone] [address] [place] [address] xxxxxxxxxxxx [id number] 2018 Medicaid MEDICAID MEDICAI D [id number] 2018-Present [address] [place] [address] [id number] .[id number] 2018 Medicaid [id number] [id number] .[id number] 2018 Medicare MEDICARE MEDICAR E PART A AND B xxxxxxxxxxx 2018-Present [phone] [address] [address] [place] [address] xxxxxxxxxxx [id number] .[id number] 2018 Medicare [id number] 2018 Medicare MEDICARE MEDICAR E A AND B [id number] 2018-Present [address] [place] [address] [id number] .[id number] 2018 Medicare [id number]. 1.13.172.2.7.3 .439862.315 1971 Unknown [id number] 2.16.840.1.628317.3.579.2.173 1971 Unknown [id number] 2.16.840.1.205820.3.579.2.173 1971 Unknown [id number] 2.16.840.1.259461.3.579.2.173 1971 Unknown [id number] 2.16.840.1.139256.3.579.2.173 1971 Unknown [id number] 2.16.840.1.614770.3.579.2.173 1971 Unknown [id number] 2.16.840.1.927458.3.579.2.173 1971 Unknown [id number] 2.16.840.1.314421.3.579.2.173 1971 Unknown [id number] 2.16.840.1.472398.3.579.2.173 1971 Unknown [id number] 2.16.840.1.600467.3.579.2.647 1971 Unknown [id number] 2.16.840.1.537138.3.579.2.593 1971 Unknown [id number] 2.16.840.1.007362.3.579.2.593 1971 Unknown [id number] 2.16.840.1.165388.3.579.2.593 1971 Unknown [id number] 2.16.840.1.126738.3.579.2.593 1971 Unknown [id number] 2.16.840.1.149329.3.579.2.593 1971 Unknown [id number] 2.16.840.1.549871.3.579.2.593 1971 Unknown [id number] 2.16.840.1.507961.3.579.2.593 1971 Unknown [id number] 2.16.840.1.534102.3.579.2.593 1971 Unknown [id number] 2.16.840.1.884196.3.579.2.593 1971 Unknown [id number] 2.16.840.1.120764.3.579.2.593 1971 Unknown [id number] 2.16.840.1.868492.3.579.2.593 1971 Unknown [id number] 2.16.840.1.195098.3.579.2.593 1971 Unknown [id number] 2.16.840.1.905377.3.579.2.593 1971 Unknown [id number] 2.16.840.1.856663.3.579.2.593 1971 Unknown [id number] 2.16.840.1.425728.3.579.2.593 1971 Unknown [id number] 2.16.840.1.315937.3.579.2.125 9 1971 Unknown [id number] 2.16.840.1.142888.3.579.2.125 9 1971 Unknown [id number] 2.16.840.1.067212.3.579.2.125 9 1971 Unknown [id number] 2.16.840.1.543268.3.579.2.125 9 1971 Unknown [id number] 2.16.840.1.538362.3.579.2.125 9 1971 Unknown [id number] 2.16.840.1.069855.3.579.2.125 9 1971 Unknown [id number] 2.16.840.1.010349.3.579.2.125 9 1971 Unknown [id number] 2.16.840.1.387671.3.579.2.125 9 1971 Unknown [id number] 2.16.840.1.254860.3.579.2.125 9 1971 Unknown [id number] 2.16.840.1.484747.3.579.2.125 9 1971 Unknown [id number] 2.16.840.1.344783.3.579.2.125 9 1971 Unknown [id number] 2.16.840.1.485992.3.579.2.125 9 1971 Unknown [id number] 2.16.840.1.736632.3.579.2.125 9 1971 Unknown [id number] 2.16.840.1.931607.3.579.2.125 9 1971 Unknown [id number] 2.16.840.1.869394.3.579.2.125 9 1971 Unknown [id number] 2.16.840.1.112425.3.579.2.594 1971 Unknown [id number] 2.16.840.1.932429.3.579.2.594 1971 Unknown [id number] 2.16.840.1.783409.3.579.2.594 1971 Unknown [id number] 2.16.840.1.267096.3.579.2.594 1971 Unknown [id number] 2.16.840.1.986224.3.579.2.594 1971 Unknown [id number] 2.16.840.1.298077.3.579.2.594 1971 Unknown [id number] 2.16.840.1.216139.3.579.2.594 1971 Unknown [id number] 2.16.840.1.551962.3.579.2.594 1971 Unknown [id number] 2.16.840.1.263644.3.579.2.594 1971 Unknown [id number] 2.16.840.1.766712.3.579.2.594 1971 Unknown [id number] 2.16.840.1.284446.3.579.2.594 1971 Unknown [id number] 2.16.840.1.054593.3.579.2.727 1971 Unknown [id number] 2.16.840.1.528584.3.579.2.727 1959 Medicaid [id number] 1959 Medicare [id number] Social History Date Type Detail Facility Start: 07-19-2018 End: 10-19-2018 Tobacco smoking status NHIS Former smoker [facility] Start: 07-19-1988 End: 05-14-2018 History of tobacco use Current smoker [facility] Work Phone: Start: 07-19-1988 End: 05-14-2018 History of tobacco use Cigarette Smoker [facility] Work Phone: Start: 10-19-2018 End: 09-05-2024 Cigarettes smoked current (pack per day) - Reported [facility] End: 07-19-1994 History of tobacco use Chews Tobacco [facility] Work Phone: Start: 1971 Sex Assigned At Not on file [facility] Work Phone: Start: 11-03-2018 Alcohol intake Current non-drinker of alcohol (finding) [place] Start: 06-22-2018 Alcohol Comment Hx of alcoholism [place] Start: 11-03-2018 End: 09-05-2024 Alcohol intake No [facility] Start: 07-19-2018 Tobacco use and exposure Former user [facility] Start: 09-06-2020 End: 09-05-2024 Alcohol intake Ex-drinker (finding) [facility] Start: 07-19-2018 Alcohol Comment stopped 05/14/2018 [facility] Start: 05-05-2022 End: 01-16-2023 Exposure to SARS-CoV-2 (event) Not sure [facility] Start: 07-07-2018 Gender identity Identifies as male gender (finding) [facility] Start: 01-16-2022 Sexual orientation Heterosexual (finding) [facility] Start: 11-03-2023 Tobacco use and [...] 11-02-2023 Alcohol Comment Former [facility] Start: 09-08-2024 Tobacco smoking status Never smoked tobacco (finding) [facility] Medical Equipment Procedure Code Equipment Code Equipment Original Text Equipment Identifier Dates [id number] Start: 05-23-2020 [id number] Start: 04-12-2020 [id number] FDA Start: 05-17-2022 Comment on above: Description: Implant time-out completed by intra-procedural staff including this RN, pathological technician, and performing physician. The following was completed. RN reads out loud implant type/size/ expiration date, and verbalizes location. Holds package up to tech to visually verify implant details. Tech reads back package details MD verifies verbally correct implant Time-out was completed for each coil during embolization, if applicable. mg EA, Oral, Refills(s) 0 Start: 09-08-2024 Goals Date Patient Goal Desired Activity /State Personal health goal Functional Status Date Assessment Result Facility 09-08-2024 Functional Status N/A [facility] Clinical Notes 06-14-2021 to 09-08-2024 Starla Edwards - 09/05/2024 3:24 PM Milagros Edwards - 06/23/2024 8:51 AM Hannah Max DO - 06/17/2024 10:00 AM aJsper Garnica RN - 06/17/2024 10:00 AM EDTPatient InstructionsAttachments Note Date & Type Note Facility 09-08-2024 Hospital Discharge instructions Patient Education 09/08/2024 14:31:14 Benign Prostatic Hyperplasia Benign Prostatic Hyperplasia Benign prostatic hyperplasia (BPH) is an enlarged prostate gland that is caused by the normal aging process. The prostate may get bigger as a man gets older. The condition is not caused by cancer. The prostate is a walnut-sized gland that is involved in the production of semen. It is located in front of the rectum and below the bladder. The bladder stores urine. The urethra carries stored urine out of the body. An enlarged prostate can press on the urethra. This can make it harder to pass urine. The buildup of urine in the bladder can cause infection. Back pressure and infection may progress to bladder damage and kidney (renal) failure. What are the causes? This condition is part of the normal aging process. However, not all men develop problems from this condition. If the prostate enlarges away from the urethra, urine flow will not be blocked. If it enlarges toward the urethra and compresses it, there will be problems passing urine. What increases the risk? This condition is more likely to develop in men older than 50 years. What are the signs or symptoms? Symptoms of this condition include: Getting up often during the night to urinate. Needing to urinate frequently during the day. Difficulty starting urine flow. Decrease in size and strength of your urine stream. Leaking (dribbling) after urinating. Inability to pass urine. This needs immediate treatment. Inability to completely empty your bladder. Pain when you pass urine. This is more common if there is also an infection. Urinary tract infection (UTI). How is this diagnosed? This condition is diagnosed based on your medical history, a physical exam, and your symptoms. Tests will also be done, such as: A post-void bladder scan. This measures any amount of urine that may remain in your bladder after you finish urinating. A digital rectal exam. In a rectal exam, your health care provider checks your prostate by putting a lubricated, gloved finger into your rectum to feel the back of your prostate gland. This exam detects the size of your gland and any abnormal lumps or growths. An exam of your urine (urinalysis). A prostate specific antigen (PSA) screening. This is a blood test used to screen for prostate cancer. An ultrasound. This test uses sound waves to electronically produce a picture of your prostate gland. Your health care provider may refer you to a specialist in kidney and prostate diseases (urologist). How is this treated? Once symptoms begin, your health care provider will monitor your condition (active surveillance or watchful waiting). Treatment for this condition will depend on the severity of your condition. Treatment may include: Observation and yearly exams. This may be the only treatment needed if your condition and symptoms are mild. Medicines to relieve your symptoms, including: ?Medicines to shrink the prostate. ?Medicines to relax the muscle of the prostate. Surgery in severe cases. Surgery may include: ?Prostatectomy. In this procedure, the prostate tissue is removed completely through an open incision or with a laparoscope or robotics. ?Transurethral resection of the prostate (TURP). In this procedure, a tool is inserted through the opening at the tip of the penis (urethra). It is used to cut away tissue of the inner core of the prostate. The pieces are removed through the same opening of the penis. This removes the blockage. ?Transurethral incision (TUIP). In this procedure, small cuts are made in the prostate. This lessens the prostate's pressure on the urethra. ?Transurethral microwave thermotherapy (TUMT). This procedure uses microwaves to create heat. The heat destroys and removes a small amount of prostate tissue. ?Transurethral needle ablation (TUNA). This procedure uses radio frequencies to destroy and remove a small amount of prostate tissue. ?Interstitial laser coagulation (ILC). This procedure uses a laser to destroy and remove a small amount of prostate tissue. ?Transurethral electrovaporization (TUVP). This procedure uses electrodes to destroy and remove a small amount of prostate tissue. ?Prostatic urethral lift. This procedure inserts an implant to push the lobes of the prostate away from the urethra. Follow these instructions at home: Take hyor-yov-hnkdxmz and prescription medicines only as told by your health care provider. Monitor your symptoms for any changes. Contact your health care provider with any changes. Avoid drinking large amounts of liquid before going to bed or out in public. Avoid or reduce how much caffeine or alcohol you drink. Give yourself time when you urinate. Keep all follow-up visits. This is important. Contact a health care provider if: You have unexplained back pain. Your symptoms do not get better with treatment. You develop side effects from the medicine you are taking. Your urine becomes very dark or has a bad smell. Your lower abdomen becomes distended and you have trouble passing urine. Get help right away if: You have a fever or chills. You suddenly cannot urinate. You feel light-headed or very dizzy, or you faint. There are large amounts of blood or clots in your urine. Your urinary problems become hard to manage. You develop moderate to severe low back or flank pain. The flank is the side of your body between the ribs and the hip. These symptoms may be an emergency. Get help right away. Call 911. Do not wait to see if the symptoms will go away. Do not drive yourself to the hospital. Summary Benign prostatic hyperplasia (BPH) is an enlarged prostate that is caused by the normal aging process. It is not caused by cancer. An enlarged prostate can press on the urethra. This can make it hard to pass urine. This condition is more likely to develop in men older than 50 years. Get help right away if you suddenly cannot urinate. This information is not intended to replace advice given to you by your health care provider. Make sure you discuss any questions you have with your health care provider. Document Revised: 06/04/2022 Document Reviewed: 06/04/2022 [employer] Patient Education 2023 [employer]. Follow Up Care 08/25/2024 09:38:26 With:Jaguar CASTILLO, Clementina Mejias, URL Address: When:3 months Comments:med increase [facility] 09-08-2024 Note Urology Office/Clini c Note Chief Complaint referral- decrease of urine stream HPI Staff 54 yr old here with referral for decreased urine stream. pt states he gets up in the morning and has the urge to go, strains to get it to go, doesn't feels he is getting empty pt did have liver and kidney transplant- March of 2020 Dysuria: yes Incomplete bladder emptying: yes Hematuria: no Frequency: q2-3hrs Urgency: no, just in the am Nocturia: 1x Stream: weak Leaking: no Post void dripping: no Wearing pads/ Depends: no Urge incontinence: no Stress incontinence: no Incontinence without Sensory Awareness: no Abdominal pain: slight Flank pain: slight Sexual complaints: History of Present Illness Staff HPI reviewed and agree. Review of Systems PHQ Score Initial Depression Screen Score: 0 SCORE no fever, chills, malaise, myalgia. no rash/lesions. no chest pain, palpitations, or SOB. no abdominal pain, nausea, vomiting. 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 08/29/24 A1c - 5.1 1. BPH with obstruction/lower urinary tract symptoms (N40.1: Benign prostatic hyperplasia with lower urinary tract symptoms) UA today negative for blood or infection PVR today 58ml IPSS 16 Pt here today for referral for weak urinary stream. Pt reports that mostly in the mornings he has the urge to go but it takes him a while to get his stream started. Pt has some urgency throughout the day but always has weak stream. He reports this has been going on for about a year. Denies gross hematuria. Pt has been on Flomax daily for many years and denies SEs. Pt reports he drinks mostly unsweetened tea and urinates every 3-4 hours. Discussed increase fluid intake and double voiding with patient. Pt notes that he is on Lasix daily. Discussed increasing Flomax to BID, pt agreeable. Pt knows to monitor for SEs and will call our office if he experiences these. Briefly discussed completing cystoscopy with patient, pt would like to discuss further at follow up pending how he tolerates Flomax increase. -Increase Flomax to 0.4mg PO BID (refills sent today) -Monitor for SEs and call our office if he experiences these -Increase fluids, minimize bladder irritants -Timed voids, double voids -F/U 2-3 months Ordered: E&M of New Patient Moderate 45-59 Min 47127 2. Screening PSA (prostate specific antigen) (Z12.5: Encounter for screening for malignant neoplasm of prostate) No PSA records on file -Will discuss with patient at his follow up Ordered: E&M of New Patient Moderate 45-59 Min 57809 3. History of kidney transplant (Z94.0: Kidney transplant status) 08/29/24 - BUN 18, Cre 1.3, GFR 58 Pt had liver and kidney transplant in 2019 and follows yearly with [facility]. Ordered: E&M of New Patient Moderate 45-59 Min 75677 Orders: tamsulosin, 0.4 mg = 1 cap(s), Oral, BID, X 30 day(s), # 60 cap(s), Refills(s) 11, Pharmacy: [id number], 170, cm, 09/08/24 14:00:00 EDT, Height/Length Dosing, 90, kg, 09/08/24 14:00:00 EDT, Weight Dosing 31676 Measure Post Void residual urine and/or bladder capacity by US- non-imaging Urnls Dip Stick Auto w/o Microscopy POC 10296 Follow-up With When Contact Information Clementina James, LEANDRO Within 3 months Additional Instructions: med increase Patient Education Benign Prostatic Hyperplasia Problem List/Past Medical History Ongoing No qualifying data Historical No qualifying data Medications allopurinol 100 mg Tab, 100 mg= 1 tab(s) amLODIPine 5 mg Tab, 5 mg= 1 tab(s) aspirin 81 mg Oral EC Tab, 81 mg= 1 tab(s), Oral, Daily famotidine 20 mg Tab, 20 mg= 1 tab(s) gabapentin 400 mg Cap melatonin 3 mg oral disintegrating strip, Oral mycophenolic acid 360 mg oral enteric coated tablet, 720 mg= 2 tab(s) ondansetron 4 mg Dis Tab polyethylene glycol 3350 17 gram packet, Oral, Daily Prograf 0.2 mg oral granule for reconstitution, 0.1 mg/kg sulfamethoxazole-trimethoprim 800 mg-160 mg Tab tamsulosin 0.4 mg Cap, 0.4 mg= 1 cap(s), Oral, BID, 11 refills torsemide 20 mg Tab, 20 mg= 1 tab(s) Allergies shellfish (Anaphylaxis) Social History Tobacco Never (less than 100 in lifetime), Former smoker, quit more than 30 days ago Tobacco Use:. Never Smokeless Tobacco Use:., 09/08/2024 Lab Results Ambulatory Point of Care Results Bilirubin Urine Dipstick: Negative (09/08/24 13:42:00) Blood Urine Dipstick: Negative (09/08/24 13:42:00) Glucose Urine Dipstick: Negative (more content not included)... [facility] Comment on above: Result Comment: Elec tronically Signed By: Clementina James\.br\Date and Time Signed: 09/08/24 14:33 EDT 09-08-2024 Note Patient Education Urology Benign Prostatic Hyperplasia Benign prostatic hyperplasia (BPH) is an enlarged prostate gland that is caused by the normal aging process. The prostate may get bigger as a man gets older. The condition is not caused by cancer. The prostate is a walnut-sized gland that is involved in the production of semen. It is located in front of the rectum and below the bladder. The bladder stores urine. The urethra carries stored urine out of the body. An enlarged prostate can press on the urethra. This can make it harder to pass urine. The buildup of urine in the bladder can cause infection. Back pressure and infection may progress to bladder damage and kidney (renal) failure. What are the causes? This condition is part of the normal aging process. However, not all men develop problems from this condition. If the prostate enlarges away from the urethra, urine flow will not be blocked. If it enlarges toward the urethra and compresses it, there will be problems passing urine. What increases the risk? This condition is more likely to develop in men older than 50 years. What are the signs or symptoms? Symptoms of this condition include: ? Getting up often during the night to urinate. ? Needing to urinate frequently during the day. ? Difficulty starting urine flow. ? Decrease in size and strength of your urine stream. ? Leaking (dribbling) after urinating. ? Inability to pass urine. This needs immediate treatment. ? Inability to completely empty your bladder. ? Pain when you pass urine. This is more common if there is also an infection. ? Urinary tract infection (UTI). How is this diagnosed? This condition is diagnosed based on your medical history, a physical exam, and your symptoms. Tests will also be done, such as: ? A post-void bladder scan. This measures any amount of urine that may remain in your bladder after you finish urinating. ? A digital rectal exam. In a rectal exam, your health care provider checks your prostate by putting a lubricated, gloved finger into your rectum to feel the back of your prostate gland. This exam detects the size of your gland and any abnormal lumps or growths. ? An exam of your urine (urinalysis). ? A prostate specific antigen (PSA) screening. This is a blood test used to screen for prostate cancer. ? An ultrasound. This test uses sound waves to electronically produce a picture of your prostate gland. Your health care provider may refer you to a specialist in kidney and prostate diseases (urologist). How is this treated? Once symptoms begin, your health care provider will monitor your condition (active surveillance or watchful waiting). Treatment for this condition will depend on the severity of your condition. Treatment may include: ? Observation and yearly exams. This may be the only treatment needed if your condition and symptoms are mild. ? Medicines to relieve your symptoms, including: ? Medicines to shrink the prostate. ? Medicines to relax the muscle of the prostate. ? Surgery in severe cases. Surgery may include: ? Prostatectomy. In this procedure, the prostate tissue is removed completely through an open incision or with a laparoscope or robotics. ? Transurethral resection of the prostate (TURP). In this procedure, a tool is inserted through the opening at the tip of the penis (urethra). It is used to cut away tissue of the inner core of the prostate. The pieces are removed through the same opening of the penis. This removes the blockage. ? Transurethral incision (TUIP). In this procedure, small cuts are made in the prostate. This lessens the prostate's pressure on the urethra. ? Transurethral microwave thermotherapy (TUMT). This procedure uses microwaves to create heat. The heat destroys and removes a small amount of prostate tissue. ? Transurethral needle ablation (TUNA). This procedure uses radio frequencies to destroy and remove a small amount of prostate tissue. ? Interstitial laser coagulation (ILC). This procedure uses a laser to destroy and remove a small amount of prostate tissue. ? Transurethral electrovaporization (TUVP). This procedure uses electrodes to destroy and remove a small amount of prostate tissue. ? Prostatic urethral lift. This procedure inserts an implant to push the lobes of the prostate away from the urethra. Follow these instructions at home: ? Take lmmr-pei-czxakdu and prescription medicines only as told by your health care provider. ? Monitor your symptoms for any changes. Contact your health care provider with any changes. ? Avoid drinking large amounts of liquid before going to bed or out in public. ? Avoid or reduce how much caffeine or alcohol you drink. ? Give yourself time when you urinate. ? Keep all follow-up visits. This is important. Contact a health care provider if: ? You have unexplained back pain. ? Your symptoms do not get better with treatment. ? You develop side effec (more content not included)... [facility] 09-05-2024 History of Present illness Narrative [facility]: Call Information: Date and Time of Contact: 09/05/2024 3:24 PM Method of Contact: By Phone Contact Type: Prescriptions Contactor: Patient Contactee: [facility] Shipping/Pickup: Medicare B Refill?: No Medication Name: Mycophenolate, prograf Delivery Method: Ship Delivery Location: Home Signature Required: No Receive/Pickup Date: 09/06/2024 Shipping Address: [address] [place] [address] Contact Info: Specialty (Isom) [phone] [facility] [phone] [facility] [phone] David [phone] Bedside Delivery ([facility]) [phone] documented in this encounter [facility] 06-23-2024 History of Present illness Narrative [facility]REACH ADVANCED: Call Information: Date and Time of Contact: 06/23/2024 8:52 AM Method of Contact: By Phone Contact Type: Prescriptions Contactor: [facility] Contactee: Patient Shipping/Pickup: Medicare B Refill?: No Medication Name: Prograf 0.2mg Delivery Method: Ship Delivery Location: Home Signature Required: No Receive/Pickup Date: 06/29/2024 Shipping Address: [address] [place] [address] Contact Info: Specialty (Isom) [phone] [facility] [phone] [facility] [phone] David [phone] Bedside Delivery ([facility]) [phone] documented in this encounter [facility] 06-17-2024 History of Present illness Narrative -Referring Provider for today's consult: Self, Self -Primary Care Provider: Zuly Bruno History of Present Illness George Styles is a 54 y.o. male who presents to the [facility] today for follow-up of [...] Surgeon: Jyoti Bryant MD, PhD; Location: [facility] MAIN OR PLACEMENT NEPHROSTOMY CATHETER PERCUTANEOUS W/ IMAGE GUIDANCE 05/17/2022 Surgeon: Enzo Heart DO; Location: [facility] INTERVENTIONAL RADIOLOGY (VIR) LIVER TRANSPLANT, ORTHOTOPIC N/A 04/12/2020 Laterality: N/A; Surgeon: LU Palma; Location: [facility] SAME DAY SURGERY MAIN OR KIDNEY TRANSPLANT W/O [place] NEPHRECTOMY N/A 04/12/2020 Laterality: N/A; Surgeon: LU Palma; Location: [facility] SAME DAY SURGERY MAIN OR OTHER SURGICAL [...] 0.2 06/13/2024 Explant Pathology Pathologic Diagnosis A. [place] liver, orthotopic liver transplant resection (1458 [...] up in 1 year. Daisha Max DO Market Gardener Gastroenterology, Hepatology and Nutrition [facility] Pager: [phone] Images from the original note were not included. 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 Supervisor Inventory Merchandising: Anayeli Burt Date of Liver Transplant: 04/13/2020 (Kidney), 04/13/2020 (Liver) 4 years, 2 months post Liver/Kidney Transplant Primary Disease: Hypertensive Nephrosclerosis Transplant Pot Sander: Erma Roe/ Daisha Max Primary Care physician: [...] LAB AND PHARMACY: None Specified [id number] [place] [address] - [address] [facility] [address] [facility] [id number] [facility] [address] [facility] [address] [id number] [place] [address] [address] [facility] [address] [facility] [address] [facility] [address], [address] [facility] [address] ROS and SCREEN: Chest Pain: negative Cough: [...] year: no Do you follow with a Prospecting Driller? yes Do you have a Primary Care [...] ADDRESS WITH PHYSICIAN: documented in this encounter [facility] 06-17-2024 Instructions Ashlee Fair RN - 06/17/2024 10:00 AM EDT - No medication changes from a liver standpoint - A MRI Abdomen has been ordered today. Please call central scheduling at [phone] to schedule or take paper copy to your local hospital - Return to clinic 06/16/2025 TRANSPLANT HEPATOLOGY 3, [facility] as scheduled documented in this encounter [facility] 06-17-2024 History of Present illness Narrative Images from the original note were not included. George Styles is a 54 y.o. 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 No longer follows with a local wet primer powder blender. History of Present Illness: Since George was [...] lab results. Rebeca Gutierrez MSN, RN, CHIEF CONTRACT OFFICER-BC, CCTN Certified Nurse Practitioner [facility] [address] [facility] [address] documented in this encounter [facility] 06-17-2024 Instructions JEANNA Hess - 06/17/2024 9:30 AM EDT Tacrolimus - increase to 0.2 mg packet three time per day; goal 3 to 5 ng/dL ; when the itraconazole stops 09/03/2024, reduce to 0.5 mg twice daily. Once your tacrolimus level is 3-5 ng/dL, you may reduce labs to every other week. documented in this encounter [facility] 05-26-2024 History of Present illness Narrative [facility]RE[facility]: Call Information: Date and Time of Contact: 05/26/2024 4:35 PM Method of Contact: By Phone Contact Type: Prescriptions Contactor: [facility] Contactee: Patient Contact Outcome: Left message and Follow-up Contact Info: Specialty (Yanci) [phone] Jakob [phone] [facility] [phone] David [phone] Bedside Delivery ([facility]) [phone] [facility]REACH [facility]ED: Call Information: Date and Time of Contact: 05/30/2024 4:52 PM Method of Contact: By Phone Contact Type: Prescriptions Contactor: Patient Contactee: [facility] Shipping/Pickup: Medicare B Refill?: No Medication Name: Myco sod 360mg, Prograf 0.2mg Delivery Method: Ship Delivery Location: Home Signature Required: No Receive/Pickup Date: 06/06/2024 Shipping Address: [address] [place] [address] Contact Info: Specialty (Yanci) [phone] Jakob Hendrix [phone] [facility] [phone] David [phone] Bedside Delivery ([facility]) [phone] documented in this encounter [facility] 05-13-2024 Note ID Cardiology - [facility] Subjective George Styles is [...] , Rfl: t (more content not included)... [facility] 03-24-2024 History of Present illness Narrative [facility] OUTREACH ADVANCED: Call Information: Date and Time of Contact: 03/24/2024 4:14 PM Method of Contact: By Phone Contact Type: Prescriptions Contactor: [facility] Contactee: Patient Contact Outcome: Left message Shipping/Pickup: Medication Name: Prograf 0.2mg pack Contact Info: Specialty (Isom) [phone] [facility] [phone] [facility] [phone] David [phone] Bedside Delivery ([facility]) [phone] [facility] OUTREACH ADVANCED: Call Information: Date and Time of Contact: 03/28/2024 3:58 PM Method of Contact: By Phone Contact Type: Prescriptions Contactor: [facility] Contactee: Patient Contact Outcome: Left message and Call back later Shipping/Pickup: Medication Name: Mycophenolate, prograf Contact Info: Specialty (Isom) [phone] [facility] [phone] [facility] [phone] David [phone] Bedside Delivery ([facility]) [phone] [facility] OUTREACH ADVANCED: Call Information: Method of Contact: By Phone Contact Type: Prescriptions Contactor: Patient Contactee: [facility] Shipping/Pickup: Medicare B Refill?: No Medication Name: Mycopheolate 360mg and Prograf Delivery Method: Ship Delivery Location: Home Signature Required: No Receive/Pickup Date: 04/04/2024 Shipping Address: [address] [place] [address] [address] Contact Info: Specialty (Yanci) [phone] [facility] [phone] [facility] [phone] David [phone] Bedside Delivery ([facility]) [phone] documented in this encounter [facility] 03-24-2024 History of Present illness Narrative [facility] OUTREACH ADVANCED: Call Information: Date and Time of Contact: 03/24/2024 4:14 PM Method of Contact: By Phone Contact Type: Prescriptions Contactor: [facility] Contactee: Patient Contact Outcome: Left message Shipping/Pickup: Medication Name: Prograf 0.2mg pack Contact Info: Specialty (Yanci) [phone] Jakob [phone] [facility] [phone] David [phone] Bedside Delivery ([facility]) [phone] [facility] RX OUTREACH ADVANCED: Call Information: Date and Time of Contact: 03/28/2024 3:58 PM Method of Contact: By Phone Contact Type: Prescriptions Contactor: [facility] Contactee: Patient Contact Outcome: Left message and Call back later Shipping/Pickup: Medication Name: Mycophenolate, prograf Contact Info: Specialty (Isom) [phone] Jakob [phone] [facility] [phone] David [phone] Bedside Delivery ([facility]) [phone] [facility] RX OUTREACH ADVANCED: Call Information: Method of Contact: By Phone Contact Type: Prescriptions Contactor: Patient Contactee: [facility] Shipping/Pickup: Medicare B Refill?: No Medication Name: Mycopheolate 360mg and Prograf Delivery Method: Ship Delivery Location: Home Signature Required: No Receive/Pickup Date: 04/04/2024 Shipping Address: [address] [place] [address] [address] Contact Info: Specialty (Isom) [phone] [facility] [phone] [facility] [phone] David [phone] Bedside Delivery ([facility]) [phone] [facility] OUTREACH ADVANCED: Pre-Verification/Specialty Assessment/Disease [...] Within normal limits Contact Info: Specialty (Yanci) [phone] [facility] [phone] [facility] [phone] David [phone] Bedside Delivery ([facility]) [phone] [facility] History of [...] up del of broth Contact Info: Specialty (Isom) [phone] [facility] [phone] [facility] [phone] David [phone] Bedside Delivery ([facility]) [phone] [facility] RX OUTREACH ADVANCED: Call Information: Date and Time of Contact: 03/02/2024 3:49 PM Method of Contact: By Phone Contact Type: Prescriptions Contactor: [facility] Contactee: Patient Contact Outcome: Left message and Follow-up Shipping/Pickup: Medication Name: Myco 360mg and Prograf 0.2mg Contact Info: Specialty (Yanci) [phone] [facility] [phone] [facility] [phone] David [phone] Bedside Delivery ([facility]) [phone] [facility] RX OUTREACH ADVANCED: Call Information: Date and Time of Contact: 03/02/2024 4:08 PM Method of Contact: By Phone Contact Type: Prescriptions Contactor: [facility] Contactee: Patient Shipping/Pickup: Medicare B Refill?: No Medication Name: Myco 360 / prograf 0.2 Delivery Method: Ship Delivery Location: Home Signature Required: No Receive/Pickup Date: 03/03/2024 Shipping Address: [address] [place] [address] [address] Contact Info: Specialty (Isom) [phone] [facility] [phone] [facility] [phone] David [phone] Bedside Delivery ([facility]) [phone] documented in this encounter [facility] 02-26-2024 History of Present [...] the [facility] on 02/26/2024 [...] Surgeon: Jyoti Bryant MD, PhD; Location: [facility] MAIN OR PLACEMENT NEPHROSTOMY CATHETER PERCUTANEOUS W/ IMAGE GUIDANCE 05/17/2022 Surgeon: Enzo Heart DO; Location: [facility] INTERVENTIONAL RADIOLOGY (VIR) LIVER TRANSPLANT, ORTHOTOPIC N/A 04/12/2020 Laterality: N/A; Surgeon: LU Palma; Location: [facility] SAME DAY SURGERY MAIN OR KIDNEY TRANSPLANT W/[place] NEPHRECTOMY N/A 04/12/2020 Laterality: N/A; Surgeon: LU Palma; Location: [facility] SAME DAY SURGERY MAIN OR OTHER SURGICAL [...] qd Antithrombotic: no Statin: no ICD: NA PHARMACEUTICAL COMPOUNDING SUPERVISOR: NA CV Test results: ECHOCARDIOGRAM 01/18/2024 [...] will be BP control. Candie Almaguer M.D. trimmer meat Advanced Heart Failure Program Division of Cardiovascular Medicine [facility] [email or web address] ph [phone] fax [phone] documented in this encounter [facility] 02-26-2024 Instructions Marsha Mckeon RN - 02/26/2024 9:30 AM EDT The following instructions were given today: Labs today Follow up with Dr. Almaguer as needed. Your after visit summary (AVS) is viewable in [facility] My Chart. Call RN if you have cardiac questions/concerns M-F 8 to 4:30 ; office # [phone], option 6, then option 2. Guidelines for home management: 1. Continue to monitor weight first thing each morning. 2. Report to the [facility]F CLINIC ([phone]) any significant weight change. Remember that weight [...] to have labs/tests run outside of the [facility] and you do not hear from us 1-2 days after they are performed, you must call us to ensure we received the results. Office fax # [phone]. No news does not necessarily mean that your tests are normal, it could mean we did not get the results. For questions/updates: please provide your name with spelling, date of and question or update All calls are prioritized and responses researched, if possible, prior to calls being returned. Call Scheduling for any appointment/procedure verification or changes [phone], option 7 or [facility] at [phone], option 1. documented in this encounter [facility] 01-23-2024 Nurse Note Jakob [...] to transport home on home oxygen supply. [facility] 01-23-2024 Miscellaneous Notes Jakob [...] verbalization of pain descriptors George Tray Styles ([id number]) PRE OPERATIVE DIAGNOSIS High output congestive heart failure [I50.83] POST OPERATIVE DIAGNOSIS Post-Op Diagnosis Codes: * High output congestive heart failure [I50.83] PROCEDURE PERFORMED Procedure(s) (LRB): LIGATION ANGIOACCESS AVF (Left) Resection of large aneurysmic vein PRIMARY CLOSURE Yes INTRAOPERATIVE FINDINGS No significant abnormalities SURGEON Surgeons and Role: * Jyoti Bryant MD, PhD - Primary ANESTHESIOLOGIST Anesthesiologist: Celena Tiwari MD; Kehinde Gutierrez MD RUNNING SPECIALIST: David Jasso APRN-RUNNING SPECIALIST Needle Punch Machine Operator Helper Assisting: Mini Khan MD SURGICAL STAFF Price Checker: Zoila Lawrence RN Relief Price Checker: Marimar Saravia RN Relief Scrub: Briseyda Self [...] patient breathing easily. Report received from surgical scrub tech and report received from anesthesiology. Pt arrived [...] Axillary block. SURGEON(S): Jyoti Bryant MD, PHD HOLDER PILE DRIVING: Mynor Fall MD ESTIMATED BLOOD LOSS: Minimal. [...] Jyoti Bryant MD, PHD ATTENDING AR/MedFlorencio JOB: [id number] DOC: [id number] Patient has been asleep this shift. He [...] overnight coverage, Jasper Gastelum MD, via pager #[phone] Pt- George Styles. Smith 1082. TM1. Was wondering if he can have his Melatonin order increased to 6mg. Per pt, he usually takes 8mg at home. -SAMI Duffy #[phone] Tati Charles RN Internal Medicine Daily Progress Note Patient: George Styles, 1970, [id number] Physician: Arelis Mera MD, PGY3, Pager #[phone], TM1 service Assessment/Plan: George Styles is a [...] home amlodipine 5mg CAD: non-obstructive CAD on [facility] 2018. - continue home aspirin 81mg [...] Mera MD Mr. Styles was admitted to [address] [place] [address]. On admission to 0, from outside facility a dual RN initial assessment of skin condition was performed by Izzy Gutierrez RN and Leroy Singleton RN. Skin Assessment: Skin within defined limits:Yes Jose Score: 20 Wound Vision Suction Plate Roller Hand images obtained: No LDA Added: No [...] station when available. documented in this encounter [facility] 01-23-2024 Nurse Note Home [...] at 4L of oxygen is also required.) [facility] 01-23-2024 History of Present [...] mg Oral Daily Kelvin Pacheco MD, MBBS public policy professor Transplant nephrology Surgery Post-Op Check Note [...] monitor Leonel Harris DO General Surgery Pager [phone] CM went to bedside to talk with patient. Patient states he has home oxygen through [employer]. He uses 2.5 LNC around the clock. Patient states his brother will bring a tank for discharge. Anticipate patient will discharge tomorrow AM. Brother updated. Girish Oro RN, BSN Clinical Architectural Practice Manager Please note that I am a float correctional case manager and may not cover the same service every day. Please call the main Case Management office at [phone] for up-to-date coverage. Verified patients identity using [...] included. Internal Medicine Daily Progress Note Patient: eGorge Styles, 1970, [id number] Physician: Yury Ozuna MD, PGY1, Pager #[phone], TM1 service Assessment/Plan: George Styles is a [...] home amlodipine 5mg CAD: non-obstructive CAD on [facility] 2018. - continue home aspirin 81mg [...] with the Nutrition plan outlined in the Traffic Survey Technician s note. DVT prophylaxis with lovenox [...] in resident note. Kelvin Pacheco MD, MBBS public policy professor Transplant nephrology Patient seen and examined [...] Oral BID AC Kelvin Pacheco MD, LU public policy professor Transplant nephrology Images from the original note were not included. Internal Medicine Daily Progress Note Patient: George Styles, 1970, [id number] Physician: Yury Ozuna MD, PGY1, Pager #[phone], ZW5 service Assessment/Plan: George Styles is a 53 [...] home amlodipine 5mg CAD: non-obstructive CAD on C 2018. - continue home aspirin 81mg daily, [...] with the Nutrition plan outlined in the Traffic Survey Technician s note. DVT prophylaxis with lovenox [...] Associated attestation - Sarah, Kelvin Ortiz MD, LU - 01/21/2024 1:50 PM EST [...] Provider: Zuly Bruno NP [facility] Other Comments: Patient reported his Last Home Dose of mycophenolate and tacrolimus was on 01/15/24 at 0700. Medications that need removed from Outside Medication Reconciliation list: Please remove all medications. Please feel free to contact me with any further questions. Name: Heidy Chatman Phone #: [phone] Date/Time: 01/19/2024 12:08 PM Time Spent: 15 minutes Associated attestation - Fidelina Alarcon RPH - 01/19/2024 12:41 PM EST Department of Pharmacy Admission Medication Reconciliation Note Patient: George Styles Room/Bed: 1082/A I have reviewed the home medication list with the Woods Superintendent. The home medication list status is: complete. All changes to the home medication list have been updated in [facility]HIS. Updated TRAIL MAINTENANCE WORKER Med List: Prior to Admission Medications [...] me with any further questions. Name: Fidelina Angel Alarcon [facility] Phone #: [phone] Date/Time: 01/19/2024 12:41 PM Internal Medicine Daily Progress Note Patient: George Feliz Jensen, 1970, [id number] Physician: Yury Ozuna MD, PGY1, Pager #[phone], ZO9 service Assessment/Plan: Acute Hypoxic Respiratory Insufficiency GARCIA, [...] home amlodipine 5mg CAD: non-obstructive CAD on [facility] 2018. - continue home aspirin 81mg [...] with the Nutrition plan outlined in the Traffic Survey Technician s note. DVT prophylaxis with lovenox [...] mg Oral Daily Kelvin Pacheco MD, MBBS public policy professor Transplant nephrology Internal Medicine Daily Progress Note Patient: George Styles, 1970, [id number] Physician: Yury Ozuna MD, PGY1, Pager #[phone], TM1 service Assessment/Plan: Updates: - continued diuresis [...] home amlodipine 5mg CAD: non-obstructive CAD on [facility] 2018. - continue home aspirin 81mg [...] with the Nutrition plan outlined in the Traffic Survey Technician s note. DVT prophylaxis with lovenox [...] in resident note. Kelvin Pacheco MD, MBBS public policy professor Transplant nephrology Pt known to flag decorator from previous admissions. Provided emotional and spiritual support. Patient shared about: family support, medical course Computer Service Technician provided: - Supportive presence - Active listening - Validation of feelings/emotions Patient encouraged to request a flag decorator as needed. Chaplains are available in-house 24 hours a day and 7 days a week. For urgent matters in [facility], please page [phone]. If the request is not urgent, please enter a consult. Consults are responded to within 24 hours. Senior Staff Computer Service Technician Angie Singh Mdiv, [facility] [phone] [email or web address] On-call TYLOR: housecalls nurse David: 22/06 Pager ,[facility], and Brock Maciel Pager [facility] 01/18/24 1342 Clinical Encounter Type Visited With Patient Visit Type Introduction Pastoral Time Spent 15 min Referral Other (See Comment) (rounding) Spiritual Assessment Emotional Observation Coping well;Anxiety Hope Observation Specific hope focus Support Observation By Family Interventions Provided Active listening;Supportive presence Facilitated Verbalization of feelings;Identifying support system;Identifying Sources of spiritual well-being Explored Expectations;Treatment decisions Marriage And Family Counselor Education Marriage And Family Counselor Service Available Yes Educated Patient Outcomes Patient [...] interaction. Name: Fidelina Alarcon RPH Phone #: [phone] Date/Time: 01/18/2024 9:56 AM Discharge Planning Patient [...] Yes Name and Contact information: Gian Styles ([phone]) Would you like to add additional adult [...] oxygen?: Yes Oxygen Provider and Contact : Tape TV Liter-Flow?: 20/01- Order for oxygen use?: unknown [...] patient on Anticoagulation? : No [id number] [place] [address] - [address] [facility] [address] [facility] [address] Licensed Direct Entry Midwife Does the patient or sales representative facility services express financial concerns? : No Employed?: Disabled Coping/Stress Concerns about patient s coping and stress?: No Concerns about patient s caregiver s coping and stress?: No Values and Beliefs Cultural or taoist practices that may impact discharge planning and/or [...] Plan 1. Identified self and role as Architectural Practice Manager. 2. Confirmed and updated demographics and treatment team. 3. Architectural Practice Manager will continue to follow with medical team for any other additional discharge needs. Kasandra DON RN [facility] [phone] *Please note I am float and work Thursday and Thursday every other week. Please call [phone] for assist in my absence. Internal Medicine Daily Progress Note Patient: George Styles, 1970, [id number] Physician: Yury Ozuna MD, PGY1, Pager #[phone], CS6 service Assessment/Plan: Updates: - continue diuresis with [...] home amlodipine 5mg CAD: non-obstructive CAD on [facility] 2018. - continue home aspirin 81mg [...] ordered 2D echo. Kevin Prince MD, SERA Market Gardener of Clinical Medicine [facility] documented in this encounter [facility] 01-23-2024 Plan of care [...] Symptoms (Acute Pain): verbalization of pain descriptors [facility] 01-22-2024 Hospital Discharge instructions [...] your doctor for further instructions. Please call [phone], Option 1 or [phone] to schedule your appointment with the Heart Failure Clinic. Arelis Mera MD - 01/22/2024 3:08 PM EST You can change your dressing 48 hours from the procedure The following attachments cannot be sent through Care Everywhere.Heart Failure: Avoiding Triggers (Turkish)Heart Failure: Limiting Sodium (Turkish)Pain and Pain Control ([facility]) (Turkish)documented in this encounter [facility] 01-22-2024 Surgery Postoperative evaluation and management note George Styles ([id number]) PRE OPERATIVE DIAGNOSIS High output congestive heart failure [I50.83] POST OPERATIVE DIAGNOSIS Post-Op Diagnosis Codes: * High output congestive heart failure [I50.83] PROCEDURE PERFORMED Procedure(s) (LRB): LIGATION ANGIOACCESS AVF (Left) Resection of large aneurysmic vein PRIMARY CLOSURE Yes INTRAOPERATIVE FINDINGS No significant abnormalities SURGEON Surgeons and Role: * Jyoti Bryant MD, PhD - Primary ANESTHESIOLOGIST Anesthesiologist: Celena Tiwari MD; Kehinde Gutierrez MD RUNNING SPECIALIST: David Jasso APRN-RUNNING SPECIALIST Needle Punch Machine Operator Helper Assisting: Mini Khan MD SURGICAL STAFF Price Checker: Zoila Lawrence RN Relief Price Checker: Marimar Saravia RN Relief Scrub: Briseyda Self Scrub Person: Cinda Mai RN Resident Assisting: Leonel Harris DO Fellow: Miki Mcgowan MD, MBBS COMPLICATIONS None ESTIMATED BLOOD LOSS Minimal SPECIMENS No specimen sent * No specimens in log * Jyoti Bryant MD, PhD January 22, 2024 1:34 PM [facility] Work Phone: 01-22-2024 Nurse Note Arrived to PACU assisted by anesthesiology. Connected to monitors. Turned side to side, OR linens removed, repositioned. Airway patent, patient breathing easily. Report received from surgical scrub tech and report received from anesthesiology. Pt arrived awake. VSS. Sats slightly low. Pulm rehab used. Sats currently 3lpm @ 93%. Pt states he uses CPAP nocturnally. A&Ox4. Nerve block left arm, elevated. [facility] 01-22-2024 Surgery Postoperative evaluation [...] Axillary block. SURGEON(S): Jyoti Bryant MD, PHD HOLDER PILE DRIVING: Mynor Fall MD ESTIMATED BLOOD LOSS: Minimal. [...] Jyoti Bryant MD, PHD ATTENDING SHANNON/Constanza JOB: [id number] DOC: [id number] [facility] 01-22-2024 Plan of care note [...] Plan Of Care Reviewed With: patient [facility] 01-20-2024 Consult note Associated Order (s): IP CONSULT TO SURGERY - TRANSPLANT (RENAL) Images from the original note were not included. TRANSPLANT SURGERY CONSULT NOTE: Consult: 01/20/2024, 4:03 PM Chief Dietitian: Starla Morris MD Reason for Consult: Requesting Dr Carson Bryant for AVF revision/closure given new onset high output heart failure George Styles is a 53 y.o. male CURRENT HOSPITALIZATION LOS: Admit Date: 01/16/2024 [facility] Hospital LOS: 4 days George Styles [...] DAY SURGERY MAIN OR KIDNEY TRANSPLANT W/[place] NEPHRECTOMY N/A 04/12/2020 Laterality: N/A; Surgeon: [...] seen and staffed with Dr. Mcgowan fellow certification engineer Thank you, Starla Morris MD Associated attestation - Jyoti Bryant MD, PhD - 01/22/2024 10:54 AM EST Beata Bryant MD, PhD, have independently seen and examined the patient, reviewed the labs, discussed the patient with the fellow/resident and agree with the note. [facility] Work Phone: 01-20-2024 Consult note Associated Order (s): IP CONSULT TO SURGERY - TRANSPLANT (RENAL) Images from the original note were not included. TRANSPLANT SURGERY CONSULT NOTE: Consult: 01/20/2024, 4:03 PM Chief Dietitian: Starla Morris MD Reason for Consult: Requesting Dr Carson Bryant for AVF revision/closure given new onset high output heart failure George Styles is a 53 y.o. male CURRENT HOSPITALIZATION LOS: Admit Date: 01/16/2024 [facility] Hospital LOS: 4 days George Styles [...] 05/17/2022 Surgeon: Enzo Heart DO; Location: [facility] INTERVENTIONAL RADIOLOGY (VIR) LIVER TRANSPLANT, ORTHOTOPIC N/A 04/12/2020 Laterality: N/A; Surgeon: LU Palma; [facility] SAME DAY SURGERY MAIN OR KIDNEY TRANSPLANT W/[place] NEPHRECTOMY N/A 04/12/2020 Laterality: N/A; Surgeon: [...] Oral Once per day on Thursday Arelis Mrea MD 1 tablet at 01/20/24 0928 tacrolimus [...] seen and staffed with Dr. Mcgowan fellow certification engineer Thank you, Starla Morris MD Associated attestation [...] 05/17/2022 Surgeon: Enzo Heart DO; Location: [facility] INTERVENTIONAL RADIOLOGY (VIR) LIVER TRANSPLANT, ORTHOTOPIC N/A 04/12/2020 Laterality: N/A; Surgeon: LU Palma; Location: [facility] SAME DAY SURGERY MAIN OR KIDNEY TRANSPLANT W/[place] NEPHRECTOMY N/A 04/12/2020 Laterality: N/A; Surgeon: LU Palma; Location: [facility] SAME DAY SURGERY MAIN OR OTHER SURGICAL [...] (order for outpatient) Please SecureChat or Call ([phone]) for any questions. Await attending attestation for final recommendations. Hank Noel MD Division of Gastroenterology, Hepatology, and Nutrition Clinical Fellow, PGY-5 Pager: [phone] For urgent/stat calls or consults 5pm to 7am, please page the on-call GI fellow on QGenda. [facility]--> Internal Medicine--> Gastroenterology, Hepatology, & Nutrition--> 1st Call Janae Hatfield For urgent/stat calls or consults 7am to 5pm during the weekend, please page the on-call GI fellow on QGenda. [facility]--> Internal Medicine--> Gastroenterology, Hepatology, & Nutrition--> All Hep & East Wknd Cons Fel Day For follow up questions regarding this patient 7am to 5pm during the weekday, contact the Hepatology consults fellow or CARLOS A on QGenda. [facility]--> Internal Medicine--> Gastroenterology, Hepatology, & Nutrition--> [...] MD, MSc documented in this encounter [facility] 01-19-2024 Nurse Note 01/19/24 0900 Vitals [...] 95-96% when talking/moving. Paulette Cordon RN [facility] 01-19-2024 Nurse Note Paged overnight coverage, Jasper Gastelum MD, via pager #[phone] Pt- Mark. Sarah Styles 1082. TM1. Was wondering if he can have his Melatonin order increased to 6mg. Per pt, he usually takes 8mg at home. -SAMI Duffy #[phone] Tati Charles RN [facility] 01-18-2024 Consult note Associated Order (s): IP CONSULT TO HEPATOBILIARY [facility] Main Hepatology Consult WebExchange --> IM Consult Serv [facility] --> OS Main Hepatology consult service Fellow [...] 05/17/2022 Surgeon: Enzo Heart DO; Location: [facility] INTERVENTIONAL RADIOLOGY (VIR) LIVER TRANSPLANT, ORTHOTOPIC N/A 04/12/2020 Laterality: N/A; Surgeon: LU Palma; Location: [facility] SAME DAY SURGERY MAIN OR KIDNEY TRANSPLANT W/[place] NEPHRECTOMY N/A 04/12/2020 Laterality: N/A; Surgeon: LU Palma; Location: [facility] SAME DAY SURGERY MAIN OR OTHER SURGICAL [...] (order for outpatient) Please SecureChat or Call ([phone]) for any questions. Await attending attestation for final recommendations. Hank Noel MD Division of Gastroenterology, Hepatology, and Nutrition Clinical Fellow, PGY-5 Pager: [phone] For urgent/stat calls or consults 5pm to 7am, please page the on-call GI fellow on QGenda. [facility]--> Internal Medicine--> Gastroenterology, Hepatology, & Nutrition--> 1st Call Janae Hatfield For urgent/stat calls or consults 7am to 5pm during the weekend, please page the on-call GI fellow on QGenda. [facility]--> Internal Medicine--> Gastroenterology, Hepatology, & Nutrition--> All [facility] & East Wknd Cons Fel Day For follow up questions regarding this patient 7am to 5pm during the weekday, contact the Hepatology consults fellow or CARLOS A on QGenda. [facility]--> Internal Medicine--> Gastroenterology, Hepatology, & Nutrition--> [...] (order for outpatient) Michael Estrada MD, MSc [facility] Work Phone: 01-16-2024 Plan of care note Internal Medicine Daily Progress Note Patient: George Styles, 1970, [id number] Physician: Arelis Mera MD, PGY3, Pager #[phone], WI5 service Assessment/Plan: George Styles is a 53 [...] home amlodipine 5mg CAD: non-obstructive CAD on [facility] 2018. - continue home aspirin 81mg [...] on rounds. Signed, Arelis Mera MD [facility] 01-16-2024 Nurse Note Mr. Styles was admitted to [address] [place] [address]. On admission to 0, from outside facility a dual RN initial assessment of skin condition was performed by Izzy Gutierrez RN and Leroy Singleton RN. Skin Assessment: Skin within defined limits:Yes Jose Score: 20 Wound Vision Suction Plate Roller Hand images obtained: No LDA Added: No [...] room closest to nurses station when available. [facility] 01-16-2024 History and physical note Images from the original note were not included. Internal Medicine Admission History & Physical Patient: George Styles, 1970, [id number] Physician: Timothy Joseph MD, PGY1, Pager #[phone], TM 1 service Date of face to [...] 05/17/2022 Surgeon: Enzo Heart DO; Location: [facility] INTERVENTIONAL RADIOLOGY (VIR) LIVER TRANSPLANT, ORTHOTOPIC N/A 04/12/2020 Laterality: N/A; Surgeon: LU Palma; Location: [facility] SAME DAY SURGERY MAIN OR KIDNEY TRANSPLANT W/[place] NEPHRECTOMY N/A 04/12/2020 Laterality: N/A; Surgeon: LU Palma; Location: [facility] SAME DAY SURGERY MAIN OR OTHER SURGICAL [...] itraconazole Fax results to: Dr. White - [phone] Transplant Neph - [phone] Gabapentin 400 MG capsule Sig: Take 1 [...] erythema: Skin: No jaundice or rash Neuro: backup sawyer 3-7, 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 Strength grossly [...] home amlodipine 5mg CAD: non-obstructive CAD on [facility] 2018. - continue home aspirin 81mg daily Gout: continue home allopurinol 200mg daily BPH: continue home flomax 0.4mg daily Complexity. Obesity Body mass index is 32.8 kg/m . - Follow with PCP for dietary and lifestyle modifications. Any conditions listed below are present on admission unless otherwise specified. . DVT prophylaxis with lovenox Disposition: admitted to TM1 Code status is Full Staffed with Timothy [...] Luisa Steven, Renee Rivera, Daisha Max Supervisor Inventory Merchandising: José Migeul Garnica All Txt: 04/13/2020 (Kidney), 04/13/2020 (Liver) [...] results found for: CYCLOSPORIN , CYCLOSPORIN2 , [id number] , CYCLORAND No results found for: SIROLIMUS [...] request in chart. Kevin Prince MD Pager [phone] [facility] 01-16-2024 History and physical note Images from the original note were not included. Internal Medicine Admission History & Physical Patient: George Styles, 1970, [id number] Physician: Timothy Joseph MD, PGY1, Pager #[phone], TM 1 service Date of face to [...] Laterality: N/A; Surgeon: LU Palma; Location: [facility] SAME DAY SURGERY MAIN OR KIDNEY TRANSPLANT W/O [place] NEPHRECTOMY N/A 04/12/2020 Laterality: N/A; Surgeon: LU Palma; Location: [facility] SAME DAY SURGERY MAIN OR OTHER SURGICAL [...] itraconazole Fax results to: Dr. White - [phone] Transplant Neph - [phone] Gabapentin 400 MG capsule Sig: Take 1 [...] erythema: Skin: No jaundice or rash Neuro: backup sawyer 3-7, 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 Strength grossly [...] home amlodipine 5mg CAD: non-obstructive CAD on [facility] 2018. - continue home aspirin 81mg [...] Code status is Full Staffed with Dr. Alona Valle, Timothy Joseph MD Internal Medicine PGY1 [...] Luisa Steven, Renee Rivera, Daisha Max Supervisor Inventory Merchandising: José Miguel Garnica All Txt: 04/13/2020 (Kidney), [...] results found for: CYCLOSPORIN , CYCLOSPORIN2 , [id number] , CYCLORAND No results found for: SIROLIMUS [...] request in chart. Kevin Prince MD Pager [phone] [facility] History of Present illness [...] Name: Prograf 0.2 MG Contact Info: Specialty (Isom) [phone] Jakob [phone] [facility] [phone] David [phone] Bedside Delivery ([facility]) [phone] [facility] RX OUTREACH ADVANCED: Call Information: Date and Time of Contact: 01/25/2024 10:23 AM Method of Contact: By Phone Contact Type: Prescriptions Contactor: [facility] Contactee: Patient Contact Outcome: Left message (prograf myco) Contact Info: Specialty (Yanci) [phone] [facility] [phone] [facility] [phone] David [phone] Bedside Delivery ([facility]) [phone] documented in this encounter [facility] 01-12-2024 History of Present [...] Prograf 0.2 MG Contact Info: Specialty (Yanci) [phone] [facility] [phone] [facility] [phone] [facility] [phone] Bedside Delivery ([facility]) [phone] [facility] RX OUTREACH ADVANCED: Call Information: Date and Time of Contact: 01/25/2024 10:23 AM Method of Contact: By Phone Contact Type: Prescriptions Contactor: [facility] Contactee: Patient Contact Outcome: Left message (prograf myco) Contact Info: Specialty (Yanci) [phone] [facility] [phone] [facility] [phone] [facility] [phone] Bedside Delivery ([facility]) [phone] [facility] RX OUTREACH ADVANCED: Call Information: Date and Time of Contact: 01/27/2024 10:19 AM Method of Contact: By Phone Contact Type: Prescriptions Contactor: [facility] Contactee: Patient Contact Outcome: Left message (myco prograf) Contact Info: Specialty (Yanci) [phone] [facility] [phone] [facility] [phone] David [phone] Bedside Delivery ([facility]) [phone] documented in this encounter [facility] 01-12-2024 History of Present [...] Prograf 0.2 MG Contact Info: Specialty (Yanci) [phone] [facility] [phone] [facility] [phone] David [phone] Bedside Delivery ([facility]) [phone] [facility] RX OUTREACH ADVANCED: Call Information: Date and Time of Contact: 01/25/2024 10:23 AM Method of Contact: By Phone Contact Type: Prescriptions Contactor: [facility] Contactee: Patient Contact Outcome: Left message (prograf myco) Contact Info: Specialty (Yanci) [phone] [facility] [phone] [facility] [phone] David [phone] Bedside Delivery ([facility]) [phone] [facility] RX OUTREACH ADVANCED: Call Information: Date and Time of Contact: 01/27/2024 10:19 AM Method of Contact: By Phone Contact Type: Prescriptions Contactor: [facility] Contactee: Patient Contact Outcome: Left message (myco prograf) Contact Info: Specialty (Yanci) [phone] [facility] [phone] [facility] [phone] [facility] [phone] Bedside Delivery ([facility]) [phone] [facility] RX OUTREACH ADVANCED: Call Information: Date and Time of Contact: 02/01/2024 3:22 PM Contact Type: Prescriptions Contactor: [facility] Contactee: Patient Contact Outcome: Left message Shipping/Pickup: Medication Name: Mycophenolate 360mg and Prograf 0.2mg Pack Contact Info: Specialty (Isom) [phone] [facility] [phone] [facility] [phone] [facility] [phone] Bedside Delivery ([facility]) [phone] documented in this [facility]-06-[facility] History of [...] The neurologist wanted to send him to [facility] neurology but it is out [...] pt to see neurologist [place] [facility] Immunocompromised ([facility]) Hypertension ([facility]) No change in meds Check [...] ; Prograf 0.2 MG Contact Info: Specialty (Isom) [phone] [facility] [phone] [facility] [phone] David [phone] Bedside Delivery ([facility]) [phone] [facility] RX OUTREACH ADVANCED: Call Information: Date and Time of Contact: 10/23/2023 2:00 PM Method of Contact: By Phone Contact Type: Prescriptions Contactor: [facility] Contactee: Patient Contact Outcome: Left message and Call back later Shipping/Pickup: Medication Name: Mycophenolate 360mg and Prograf 0.2mg Contact Info: Specialty (Isom) [phone] Jakob [phone] [place] [phone] David [phone] Bedside Delivery ([facility]) [phone] documented in this encounter [facility] 09-11-2023 Miscellaneous Notes Pt discharged home [...] the oxygen during the night. pt will continuous pickling line pickler his oxygen from [employer], 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 This RN [...] Patient seen ambulating in the velazquez with NEWS COPY EDITOR. Patient was mildly short of breath on [...] fever, cough, night sweats and weight loss. 10 bronchoscopy with BAL. Patient's fever, chills, and [...] & HR 114. Messaged Mainor Loomis, via [employer] secure chat, Temp 100.8. His tylenol order [...] short period of time. 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 Episode [...] Critical Care Medicine Message Mainor Loomis, via [employer] secure chat, Good evening, just an FYI, [...] short period of time. 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 This [...] [address] Loera here also (telegraphic typewriter installer) Dr. Diaz aware of pt's increased oxygen [...] regular sleep/rest pattern promoted Sent a secure [employer] chat to Rosi LUZ concerning patient's temp [...] Medicine-Pediatrics, PGY-2 Mr. Styles was admitted to [address] [place] [address]. On admission to R10, from home a [...] available. documented in this encounter [facility] 09-11-2023 History of Present illness Narrative Provided follow-up emotional and spiritual support. Patient shared about rosemary of discharge and looking forward to seeing family Computer Service Technician provided: - Supportive presence - Active listening - Validation of feelings/emotions Patient encouraged to request a flag decorator as needed. Chaplains are available in-house 24 hours a day and 7 days a week. For urgent matters in [facility], please page [phone]. If the request is not urgent, please enter a consult. Consults are responded to within 24 hours. Senior Staff Computer Service Technician Angie Singh Mdiv, [facility] Kirk [phone] [email or web address] 22/06 On-call Kirk: [phone] 22/06 Pager ,[facility], and Brock 1500 David Pager [phone] 09/11/23 1430 Clinical Encounter Type Visited With Patient Visit Type Follow-up Pastoral Time Spent 15 min Referral Other (See Comment) (rounding) Spiritual Assessment Spiritual Observation Spirituality helpful Emotional Observation Coping well Hope Observation Specific hope focus Support Observation By Family Interventions Provided Active listening;Supportive presence Facilitated Verbalization of feelings Explored Expectations Marriage And Family Counselor Education Marriage And Family Counselor Service Available Yes Educated Patient Plan of Care Continue Visiting PRN Images from the original note were not included. [facility] ([facility] Note: Non-Verbal Med Rec [facility] received the following discharge prescription(s): Total cost is $0. I have reviewed the Discharge Rx Reconciliation Report. The discharge prescription(s) will be delivered to the patient on 09/11/2023. Dimitrios Gurrola RPh,PharmD Specialty (Isom) [phone] [facility] [phone] [facility] Bedside Delivery [phone] [facility] [phone] [facility] Bedside Delivery [phone] David [phone] [facility] Bedside Delivery [phone] [place] [phone] [place] [phone] Internal Medicine Daily Progress Note Patient: George Styles, 1970, [id number] Physician: Evan Kelly MD, PGY-1, TM1 service Subjective/Interval History: Patient continues to require oxygen overnight for desaturations. With insurance limitations, only accepting agency to provide home oxygen backed out. After calling them to discuss, Lynn stated she would be willing to have patient drive to their facility to continuous pickling line pickler supplies, however they close at 5pm. 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 His [place] kidney disease was noted to be presumed [...] losartan 50mg BID CAD: non-obstructive CAD on [facility] 2019. - continue home aspirin 81mg [...] 5.05 (H) 11/19/2018 Kevin Prince MD, SERA Market Gardener of Clinical Medicine [facility] Images from the [...] [employer]erred [employer] [address] [facility] [address] Internal Comment last updated by Lora Lawrence RN 09/10/2023 1334 Correct contact information: [employer] [address] [place] [address] [place] [address] machine cementer and folder- you do not need to call at discharge, I already notified the company. Addendum 152 [employer] notified this CM they are out of patient's insurance area and will not be able to service this patient at time of discharge. Provider notified. Addendum [phone] Dr Kelly called [employer] spoke to Lynn and she said they are willing to accept patient if the patient would drive to the [place] office and continuous pickling line pickler the supplies. 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 Medication additions/changes: Lipitor on hold with itraconazole Items for clinic follow up: - Lipid follow up with atorvastatin on hold - Itraconazole level and, if needed, a dose adjustment Name: Matt Kramer RPh,PharmD Phone: [phone] Date/Time: 09/10/2023 11:33 AM This CM sent referral via [employer] for O2 concentrator to 4 agencies Start date today Timer set for [facility] [employer] Addendum 1332 One accepting company reserved in [employer] [facility] [address] [facility] [place] [address] Lora Colón RN, MSN, CCM, CMCN Clinical Architectural Practice Manager- [facility] Transplant #[phone] NUTRITION FOLLOW-UP Nutrition Plan of Care: 1. Continue current diet order. 2. No oral supplements warranted at this time. 3. Monitor for significant weight changes. Monitor GI, skin integrity. 4. Monitor and encourage po intakes with goal of average po being 75-100%. 5. glass technologist to follow. ___ Met with patient [...] time. Will continue to monitor. RHIANNON BirminghamR Pager:[phone] Transplant Infectious Disease (Team 3) Progress Note [...] sign off. Please Epic message or page [phone] with questions. 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 His [place] kidney disease was noted to be presumed [...] losartan 50mg BID CAD: non-obstructive CAD on [facility] 2018. - continue home aspirin 81mg [...] to follow. Please Epic message or page [phone] with questions. Evan White DO Transplant Infectious Diseases Internal Medicine Daily Progress Note Patient: George Styles, 1970, [id number] Physician: Laurel Serrano MD, PhD, PGY-3, TM1 [...] for clinical situation. 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 His [place] kidney disease was noted to be presumed [...] losartan 50mg BID CAD: non-obstructive CAD on [facility] 2018. - continue home aspirin 81mg daily, holding atorvastatin 20mg daily Gout: continue home allopurinol 200mg daily BPH: continue home flomax 0.4mg daily DVT PPX: SQH Code Status: Full Code Disposition: Pending clinical course. Anticipate eventual discharge home. Discussed with team and attending, Kevin Prince MD, on rounds. 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 His [place] kidney disease was noted to be presumed [...] losartan 50mg BID CAD: non-obstructive CAD on [facility] 2019. - continue home aspirin 81mg [...] 5.05 (H) 11/19/2018 Kevin Prince MD, SERA Market Gardener of Clinical Medicine [facility] Transplant Infectious Disease (Team [...] BAL fungal culture NGTD Imaging (personally reviewed): 10/2 CT C/A/P 1. Superior segment of the [...] to follow. Please Epic message or page [phone] with questions. Ann Marie Haskins MD PGY-4, [...] he continues to improve. Please message via [employer] secure chat or page with any questions or concerns. Evan White DO Market Gardener Division of Infectious Disease Transplant Infectious Disease [...] to follow. Please Epic message or page [phone] with questions. Evan White DO Transplant Infectious Diseases Images from the original note were not included. Pulmonary/Critical Care Medicine Daily Progress Note Reason for Consultation: bronch for infectious workup Requesting Physician: Dr. Prince CURRENT HOSPITALIZATION: Admit Date: 08/28/2023 [facility] Hospital LOS: 9 days Impression 1. [...] and interpreted reviewed the radiographic data in [facility]. 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 His [place] kidney disease was noted to be presumed [...] losartan 50mg BID CAD: non-obstructive CAD on [facility] 2018. - continue home aspirin 81mg [...] 5.05 (H) 11/19/2018 Kevin Prince MD, SERA Market Gardener of Clinical Medicine [facility] Images from the original note were not included. Pulmonary/Critical Care Medicine Daily Progress Note Reason for Consultation: bronch for infectious workup Requesting Physician: Dr. Alona CURRENT HOSPITALIZATION: Admit Date: 08/28/2023 [facility] Hospital LOS: 8 days Impression [...] and interpreted reviewed the radiographic data in [employer]/careeverywhere. Acute Occupational Therapy Evaluation Prior to Admission [...] Assessment: Transfer Assessment: Sit to Stand Transfer Summers Level: Sit->Stand: independent Skilled Intervention/Details: Sit->Stand: x1 from EOB, x1 from toilet Stand to Sit Transfer Summers Level: Stand->Sit: independent Skilled Intervention/Details: Stand->Sit: x1 to toilet, x1 to EOB Functional Mobility: Functional Mobility Summers Level: Functional Mobility/Gait: independent Ambulation Distance (Feet): 20 Skilled Intervention/Details - Functional Mobility/Gait: pt performed functional mobility to/from RR w/ no overt LOB Outcome Score(s): CURRENT [facility] Daily [...] Acute Physical Therapy Evaluation Prior to Admission [facility] score(s): PRIOR LEVEL AM-PAC Mobility Raw Score: [...] Intact Mobility Assessment: Supine to Sit Mobility Summers Level: Supine->Sit: modified independence Bed Features/Set-up: Supine->Sit: Head of bed elevated Sit to Supine Mobility Summers Level: Sit->Supine: not tested Balance: Sitting Balance [...] environment. Transfer Assessment: Sit to Stand Transfer Summers Level: Sit->Stand: independent Skilled Intervention/Details: Sit->Stand: From EOB x 2 without difficulty. Stand to Sit Transfer Summers Level: Stand->Sit: independent Assistive Device: Stand->Sit: armed chair Skilled Rationale: Verbal cues, Positioning Gait/Functional Mobility: Gait Assessment Summers Level: Gait: stand-by assist Assistive Device: Gait: rollator Ambulation Distance (Feet): 400 Gait Deviations Identified: decreased grace, decreased gait speed Gait Skilled Rationale: verbal, upright posture, increase step length, increase foot clearance Skilled Intervention/Details - Gait: Reasonable foot clearnce without loss of balance but endorsing dyspnea as 6-7/10. Stairs: Stairs Assessment Summers Level: Stair Negotiation: not tested Outcome Score(s): [...] Daily Progress Note Patient: George Styles, 1970, [id number] Physician: Evan Kelly MD, PGY-1, TM1 service [...] RRR, normal S1, S2, no M/R/G. No EJNSEN. 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 His [place] kidney disease was noted to be presumed [...] losartan 50mg BID CAD: non-obstructive CAD on [facility] 2018. - continue home aspirin 81mg [...] 5.05 (H) 11/19/2018 Kevin Prince MD, SERA Market Gardener of Clinical Medicine [facility] Transplant Infectious Disease (Team [...] to follow. Please Epic message or page [phone] with questions. Evan White DO Transplant Infectious Diseases Images from the original note were not included. 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 His [place] kidney disease was noted to be presumed [...] losartan 50mg BID CAD: non-obstructive CAD on [facility] 2018. - continue home aspirin 81mg [...] P 450 system Kevin Prince MD, SERA Market Gardener of Clinical Medicine [facility] ERT Note: ERT called [...] Internal Medicine and Pediatrics PGY-[address] [facility] Brief [...] Internal Medicine and Pediatrics PGY-[address] [facility] Transplant [...] Thu Wed Thu Tacrolimus 0.5 mg Oral Q12H Tamsulosin [...] to follow. Please Epic message or page [phone] with questions. 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 His [place] kidney disease was noted to be presumed [...] / renal function CAD: non-obstructive CAD on [facility] 2018. 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 His [place] kidney disease was noted to be presumed [...] 2/2 renal function CAD: non-obstructive CAD on [facility] 2018. - continue home aspirin 81mg [...] 5.05 (H) 11/19/2018 Kevin Prince MD, MADISONN Market Gardener of Clinical Medicine [facility] Progression of Care Note [...] Lora Colón RN, MSN, CCM, CMCN Clinical Architectural Practice Manager- [facility] Transplant #[phone] Made introductory visit with patient. Provided emotional and spiritual support. Patient shared about: - Source of Rosemary: Camping/Fishing/Family - Spirituality/Voodoo Affiliation: raised Mosque - Family Support/history - Experience with illness/hospital course - Hopes for healing/future Computer Service Technician provided: - Supportive presence - Active listening - Validation of feelings/emotions - Pledged prayer Patient encouraged to request a flag decorator as needed. Chaplains are available in-house 24 hours a day and 7 days a week. For urgent matters in [facility], please page [phone]. If the request is not urgent, please enter a consult. Consults are responded to within 24 hours. Senior Staff Computer Service Technician Angie Singh Mdiv, [facility] [place] [phone] [email or web address] 22/06 On-call Kirk: [phone] 22/06 Pager ,[facility], and Brock Maciel Pager [phone] 09/02/23 1110 Clinical Encounter Type Visited With Patient Visit Type Introduction Pastoral Time Spent 15 min Referral Other (See Comment) (rounding) Spiritual Assessment Spiritual Observation Spirituality helpful Emotional Observation Coping well Hope Observation Specific hope focus Support Observation By Family Interventions Provided Active listening;Supportive presence Facilitated Verbalization of feelings Explored Expectations Marriage And Family Counselor Education Marriage And Family Counselor Service Available Yes Educated Patient Outcomes Patient Outcomes Reduced distress Plan of Care Continue Visiting PRN NUTRITION RISK SCREENING NOTE Nutrition Plan of Care: 1. Continue current diet order. 2. No oral supplements warranted at this time. 3. Monitor for significant weight changes. Monitor GI and skin integrity. 4. Monitor and encourage po intakes with goal of average po being 100%. 5. glass technologist to follow. George Styles is a 53 y.o. 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 His [place] kidney disease was noted to be presumed hepatorenal syndrome. His post-transplant course was noteworthy for nephrostomy tube (05/17/2022-09/10/2022) due to concern for ureteral stone. He presents as a direct admission for fever, cough, for infectious workup. Pt unavailable and information obtained via chart review Rental Sales Associate Screening Pt's appetite is good. Pt with [...] NPO Meds: Answer: with meds Food Allergies reviewed:Rissafish Cultural or Voodoo Restrictions/Preferences: None GI: Last Bowel Movement: 09/01/23 [...] time. Will continue to monitor. 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 His [place] kidney disease was noted to be presumed [...] 2/2 renal function CAD: non-obstructive CAD on [facility] 2018. - continue home aspirin 81mg [...] as outlined above. Kevin Prince MD Pager [phone] Summary: Pharmacy Med Rec Department of Pharmacy [...] Provider: Zuly Bruno NP [facility] Other Comments: Patient reported his Last Home Dose of mycophenolate & tacrolimus was on 08/28/23 at 0900. Patient reported he was taking Bactrim and benzonatate for fevers and a cough he was having. Please feel free to contact me with any further questions. Name: Heidy Chatman Phone #: [phone] Date/Time: 09/01/2023 2:01 PM Time Spent: 15 minutes Associated attestation - Matt Kramer RPh,PharmJenna - 09/01/2023 2:28 PM EDT Department of Pharmacy Admission Medication Reconciliation Note Patient: George Styles Room/Bed: 1062/A I have reviewed the home medication list with the Woods Superintendent. All changes to the home medication list have been updated in [facility]. Updated TRAIL MAINTENANCE WORKER Med List: Prior to Admission Medications [...] questions. Name: Matt Kramer RPh,PharmD Phone #: [phone] Date/Time: 09/01/2023 2:28 PM Transplant Infectious Disease [...] crypto antigen, EBV PCR -follow pending histo, [id number] labs These recommendations were discussed with the primary team. Transplant ID (Team 3) will continue to follow. Please Epic message or page [phone] with questions. 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 His [place] kidney disease was noted to be presumed [...] 2/2 renal function CAD: non-obstructive CAD on [facility] 2018. - continue home aspirin 81mg [...] 5.05 (H) 11/19/2018 Kevin Prince MD, SERA Market Gardener of Clinical Medicine [facility] Discharge Planning Patient Assessment [...] Yes Name and Contact information: Gian Styles ([phone]) Reviewed and Updated in Demographics? : Yes [...] patient on Anticoagulation? : No [id number] [place] [address] - [address] [facility] [address] [facility] [address] Licensed Direct Entry Midwife Does the patient or sales representative facility services express financial concerns? : No Employed?: Disabled Coping/Stress Concerns about patient s coping and stress?: No Concerns about patient s caregiver s coping and stress?: No Values and Beliefs Cultural or taoist practices that may impact discharge planning and/or [...] Plan 1. Identified self and role as Architectural Practice Manager. 2. Confirmed and updated demographics and treatment team. 3. Architectural Practice Manager will continue to follow with medical team/pt for any other additional discharge needs. Kasandra DON RN [facility] [phone] *Please note I am float CM and work Thursday and Thursday every other week. Please call [phone] for assist in my absence. 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 His [place] kidney disease was noted to be presumed [...] 2/2 renal function CAD: non-obstructive CAD on [facility] 2018. 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 His [place] kidney disease was noted to be presumed [...] losartan 50mg BID CAD: non-obstructive CAD on [facility] 2018. - continue home aspirin 81mg daily, atorvastatin 20mg daily Gout: continue home allopurinol 200mg daily BPH: continue home flomax 0.4mg daily DVT PPX: SQH Code Status: Full Code Disposition: Pending clinical course. Anticipate eventual discharge home. Discussed with team and attending, Kevin Prince MD, on rounds. Signed, Laurel Serrano MD, PhD documented in this encounter [facility] 09-10-2023 Hospital Discharge instructions Laurel Serrano [...] a sleep doctor. You will need to continuous pickling line pickler the oxygen concentrator when you leave the [...] healthy foods. documented in this encounter [facility] 09-01-2023 Consult note Associated Order (s): IP CONSULT TO PULMONOLOGY Pulmonary Medicine Inpatient Consultation Reason for Consultation: bronch for infectious workup Requesting Physician: Dr. Prince Pulmonary Attending Physician: Dr. Diaz CURRENT HOSPITALIZATION: Admit Date: 08/28/2023 [facility] Hospital LOS: 4 days Impression/Recommendations: George [...] Recommendations: - Plan to bronch tomorrow morning. NPO@ID, order placed - would repeat HIV, last test March Thank you for the consult. We will continue to follow. Izzy Loera MD Pulmonary and Critical Care Fellow [phone] History of Presenting Illness: Mr Styles confirms history as documented in the chart. 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 Other histories as documented in [...] bordetella, CMV, all negative Imaging: CT Chest 10 diffuse centrilobular micronodules with consolidation of LLL [...] had any ill contacts. He traveled to [place] to [facility] in May. REVIEW OF SYSTEMS A [...] DAY SURGERY MAIN OR KIDNEY TRANSPLANT W/O [place] NEPHRECTOMY N/A 04/12/2020 Laterality: N/A; Surgeon: LU Palma; Location: [facility] SAME DAY SURGERY MAIN OR OTHER SURGICAL [...] Alamo MD I can be reached via Wellkeeper message (TVSmiles) or Pager #[phone] documented in this encounter [facility] 08-28-2023 History and physical note Images from the original note were not included. Internal Medicine Admission History & Physical Patient: George Styles, 1970, [id number] Physician: Aric Turner MD, PGY1, Pager #[phone], CF service Date of face to face patient [...] So he went to see the transplant wet primer powder blender. He was found elevated Cr and asked [...] Appetite is ok now. Urine is about 0616-0111 ml every day. Stool every day, no [...] 05/17/2022 Surgeon: Enzo Heart DO; Location: [facility] INTERVENTIONAL RADIOLOGY (VIR) LIVER TRANSPLANT, ORTHOTOPIC N/A 04/12/2020 Laterality: N/A; Surgeon: LU Palma; Location: [facility] SAME DAY SURGERY MAIN OR KIDNEY TRANSPLANT W/O [place] NEPHRECTOMY N/A 04/12/2020 Laterality: N/A; Surgeon: LU Palma; Location: [facility] SAME DAY SURGERY MAIN OR OTHER SURGICAL [...] Genitourinary: Negative. Musculoskeletal: Negative. 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 His [place] kidney disease was noted to be presumed [...] Urinary histoplasmosis - PJP, candid PCR - Chief Dietitian transplant ID Acute Kidney Injury with Kidney [...] losartan 50mg BID CAD: non-obstructive CAD on [facility] 2018. - continue aspirin 81mg daily, [...] transplant with FUO. Transplant Physician: Morgan Harris, rEma Roe, Fidelina Pierson, Luisa Steven, Renee Rivera, Daisha Max Supervisor Inventory Merchandising: José Miguel Garnica All Txt: 04/13/2020 (Kidney), [...] results found for: CYCLOSPORIN , CYCLOSPORIN2 , [id number] , CYCLORAND No results found for: SIROLIMUS [...] Rest as above. Kevin Prince MD Pager [phone] documented in this encounter [facility] 08-28-2023 History of Present illness Narrative Images from the original note were not included. 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 Supervisor Inventory Merchandising: Anayeli Burt Date of Liver Transplant: 04/13/2020 (Kidney), 04/13/2020 (Liver) 3 years 4 months post Liver/Kidney Transplant Primary Disease: Hypertensive Nephrosclerosis Transplant Pot Sander: Erma Roe/ Daisha Max Primary Care physician: [...] Preferred Lab: [facility] Change in lab frequency / new order [...] None Specified, [id number] [place] [address] [address] [facility] [address] [facility] [address] [facility] [address] [place] [address] [id number] [place] [address] [address] [facility] [address] [place] [id number] [facility] [address], [address] [place] [address] ROS and SCREEN: Chest Pain: negative Cough: [...] 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 His [place] kidney disease was noted to be presumed [...] 05/17/2022 Surgeon: Enzo Heart DO; Location: [facility] INTERVENTIONAL RADIOLOGY (VIR) LIVER TRANSPLANT, ORTHOTOPIC N/A 04/12/2020 Laterality: N/A; Surgeon: LU Palma; Location: [facility] SAME DAY SURGERY MAIN OR KIDNEY TRANSPLANT W/O [place] NEPHRECTOMY N/A 04/12/2020 Laterality: N/A; Surgeon: LU Palma; Location: [facility] SAME DAY SURGERY MAIN OR OTHER SURGICAL [...] you have any questions. Steve Munoz MD carton inspector Division of Nephrology [facility] documented in this encounter [facility] 08-28-2023 Instructions Mainor Busby RN - 08/28/2023 2:15 PM EDT - Admission for fevers, cough, and night sweats documented in this encounter [facility] 08-19-2023 History of Present illness Narrative [facility]RE[facility]: Call Information: Date and Time of Contact: 08/19/2023 2:52 PM Method of Contact: By Phone Contact Type: Prescriptions Contactor: [facility] OP Contactee: Patient Shipping/Pickup: Medicare B Refill?: No Medication Name: Tacro 0.5mg Delivery Method: Air Delivery Location: Home Signature Required: No Mailing/Pickup Date: 08/25/2023 Shipping Address: [address] [place] [address] [address] Contact Info: Specialty ([facility]) [phone] [facility] [phone] [facility] [phone] David [phone] Bedside Delivery ([facility]) [phone] documented in this encounter [facility] 06-12-2023 History of Present illness Narrative Images from the original note were not included. George Styles is a 53 y.o. 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 No longer follows with a local wet primer powder blender. History of Present Illness: Since George was [...] lab results. Rebeca Gutierrez MSN, RN, CHIEF CONTRACT OFFICER-BC, CCTN Certified Nurse Practitioner [facility] [address] [facility] [address] documented in this encounter [facility] 06-12-2023 Instructions JEANNA Hess - 06/12/2023 3:00 PM EDT No change in immunosuppression. documented in this encounter [facility] 06-10-2023 History of Present illness Narrative [facility]RE[facility]: Call Information: Method of Contact: By Phone Contact Type: Prescriptions Contactor: [facility] OP Contactee: Patient Contact Outcome: Left message Shipping/Pickup: Medication Name: Mycophenolate sod 180 mg Contact Info: Specialty ([place]) [phone] [facility] [phone] [facility] [phone] David [phone] Bedside Delivery ([facility]) [phone] [facility]REACH [facility]: Call Information: Date and Time of Contact: 06/12/2023 9:43 AM Method of Contact: By Phone Contact Type: Prescriptions Contactor: [facility] OP Contactee: Patient Contact Outcome: Left message and Follow-up Shipping/Pickup: Medicare B Refill?: No Medication Name: Myco 180 Contact Info: Specialty (Isom) [phone] Jakob [phone] [facility] [phone] David [phone] Bedside Delivery ([facility]) [phone] [facility] OUTREACH ADVANCED: Call Information: Date and Time of Contact: 06/12/2023 10:08 AM Method of Contact: By Phone Contact Type: Prescriptions Contactor: [facility] OP Contactee: Patient Shipping/Pickup: Medicare B Refill?: No Medication Name: Mycophenolate 180mg DR Delivery Method: Air Delivery Location: Home Signature Required: No Mailing/Pickup Date: 06/17/2023 Shipping Address: [address] [place] [address] Contact Info: Specialty ([place]) [phone] [facility] [phone] [facility] [phone] [facility] [phone] Bedside Delivery ([facility]) [phone] documented in this encounter [facility] 03-12-2023 History of Present [...] Required: No Mailing/Pickup Date: 03/16/2023 Shipping Address: [address] [place] [address] Contact Info: Specialty (Isom) [phone] Jakob [phone] [facility] [phone] David [phone] Bedside Delivery ([facility]) [phone] [facility]REACH ADVANCED: Call Information: [...] Required: No Mailing/Pickup Date: 03/19/2023 Shipping Address: [address] [place] [address] [address] Contact Info: Specialty ([place]) [phone] Jak[facility] [phone] [facility] [phone] David [phone] Bedside Delivery ([facility]) [phone] documented in this encounter [facility] 03-10-2023 History of Present illness Narrative [facility]REACH [facility]: Call Information: Date and Time of Contact: 03/10/2023 12:00 PM Method of Contact: By Phone Contact Type: Prescriptions Contactor: [facility] OP Contactee: Patient Contact Outcome: Left message and Call back later Shipping/Pickup: Medication Name: Mycophenolate ; Tacrolimus Contact Info: Specialty (Isom) [phone] Jakob [phone] [facility] [phone] David [phone] Bedside Delivery ([facility]) [phone] documented in this encounter [facility] 03-10-2023 History of Present illness Narrative [facility]REACH [facility]ANCED: Call Information: Date and Time of Contact: 03/10/2023 12:00 PM Method of Contact: By Phone Contact Type: Prescriptions Contactor: [facility] OP Contactee: Patient Contact Outcome: Left message and Call back later Shipping/Pickup: Medication Name: Mycophenolate ; Tacrolimus Contact Info: Specialty (Isom) [phone] [facility] [phone] [facility] [phone] David [phone] Bedside Delivery ([facility]) [phone] [facility] OUTREACH ADVANCED: Call Information: Date and Time of Contact: 03/12/2023 10:32 AM Method of Contact: By Phone Contact Type: Prescriptions Contactor: [facility] OP Contactee: Patient Contact Outcome: Left message Shipping/Pickup: Medication Name: Mycophenolate sodium (MYFORTIC) 180 MG Tab tacrolimus 0.5 mg Contact Info: Specialty (Isom) [phone] [facility] [phone] [facility] [phone] David [phone] Bedside Delivery ([facility]) [phone] documented in this encounter [facility] 01-16-2023 History of Present illness Narrative -Referring Provider for today's consult: Daisha Max DO -Primary Care Provider: Zuly Bruno History of Present Illness George Styles is a 52 y.o. male who presents to the [facility] today for follow-up of [...] 05/17/2022 Surgeon: Enzo Heart DO; Location: [facility] INTERVENTIONAL RADIOLOGY (VIR) LIVER TRANSPLANT, ORTHOTOPIC N/A 04/12/2020 Laterality: N/A; Surgeon: LU Palma; Location: [facility] SAME DAY SURGERY MAIN OR KIDNEY TRANSPLANT W/O [place] NEPHRECTOMY N/A 04/12/2020 Laterality: N/A; Surgeon: LU Palma; Location: [facility] SAME DAY SURGERY MAIN OR OTHER SURGICAL [...] 0.3 12/29/2022 Explant Pathology Pathologic Diagnosis A. [place] liver, orthotopic liver transplant resection (1458 [...] A/P with IV contrast (06/27/2022): 1. Both [place] kidneys are atrophic with improvement in right-sided [...] frequent nighttime urination, etc). Daisha Max DO Market Gardener Gastroenterology, Hepatology and Nutrition [facility] Pager: [phone] Images from the original note were not included. 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 Supervisor Inventory Merchandising: Anayeli Burt Date of Liver Transplant: 04/13/2020 (Kidney), 04/13/2020 (Liver) 2 years, 8 months post Liver/Kidney Transplant Primary Disease: Hypertensive Nephrosclerosis Transplant Pot Sander: Steve Munoz Primary Care physician: Zuly Bruno combined liver/kidney transplant from a Donation after Circulatory donor on 04/13/20 due to ETOH cirrhosis and Hypertensive Nephrosclerosis. 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 Prior to transplant, the cPRA of the recipient was 0%. Donor KDPI 9%. MONITORING: COMMENTS: On DGF Protocol? Discontinued Dialysis discontinued by Dr. Mnuoz on 04/26/20 due to recovered graft function [...] levels: No results found for: CYCLOSPORIN, CYCLOSPORIN2, [id number], CYCLORAND No components found for: CYCLOSPORINE, 2HR [...] hours. ADDITIONAL INFORMATION: None Specified [id number] [place] [address] - [address] [facility] [address] [facility] [address] [facility] [address] [facility] [address] [id number] [place] [address] [address] [facility] [address] [facility] [address] [facility] [address], [address] [facility] [address] ROS and SCREEN: Chest Pain: negative Cough: [...] ADDRESS WITH PHYSICIAN: documented in this encounter [facility] 01-16-2023 Instructions José Miguel Garnica RN - 01/16/2023 9:40 AM EST - Labs Every 2 months - Discuss night time urination with your PCP - Schedule Colonoscopy through PCP - Follow up in 1 year documented in this encounter [facility] 09-10-2022 History of Present [...] and no hydronephrosis. Some reflux up the [place] right ureter but good drainage of both transplant and [place] ureter to the bladder. Nephrostomy tube was [...] transplant, orthotopic (N/A, 04/12/2020); kidney transplant w/o [place] nephrectomy (N/A, 04/12/2020); and placement nephrostomy catheter [...] Negative for , diarrhea, constipation Genitourinary: See LAC VIEUX Neurological: Negative for headaches. Lymph/Heme: Negative for [...] x 4, Normal strength. No edema. Skin: [place], warm, and dry. There are no rashes [...] and no hydronephrosis. Some reflux up the [place] right ureter but good drainage of both transplant and [place] ureter to the bladder. Nephrostomy tube was [...] 09/10/22 documented in this encounter [facility] 07-07-2022 History of Present illness Narrative [...] assisted off the table and escorted to livestock farm manager where they made a follow up. [...] yo male with a DDRT to the [facility] in 2019. Nephrostomy tube placed 05/17/22 [...] to have transplant ureter with anastomosis to [place] right ureter. Nephrostogram without filling defects and no hydronephrosis. Some reflux up the [place] right ureter but good drainage of both transplant and [place] ureter to the bladder. Nephrostomy tube was [...] 07/07/22 documented in this encounter [facility] 06-27-2022 History of Present illness Narrative [...] transplant, orthotopic (N/A, 04/12/2020); kidney transplant w/o [place] nephrectomy (N/A, 04/12/2020); and placement nephrostomy catheter [...] Negative for , diarrhea, constipation Genitourinary: See LAC VIEUX Neurological: Negative for headaches. Lymph/Heme: Negative for [...] x 4, Normal strength. No edema. Skin: [place], warm, and dry. There are no rashes [...] yo male with a DDRT to the [facility] in 2019. Nephrostomy tube placed 05/17 [...] bag if needed. documented in this encounter [facility] 06-27-2022 History and physical note Patient was evaluated in clinic as a nurse visit. Please refer to Rena Brewster's note. [facility] Work Phone: 06-27-2022 History and physical note Patient was evaluated in clinic as a nurse visit. Please refer to Rena Brewster's note. documented in this encounter [facility] 06-27-2022 History of Present illness Narrative TEACHING REGARDING TX NEPH COMPLETED-NEPH TUBE SITE DRY AND INTACT-CLEAR YELLOW URINE IN THE BAG-INSTRUCTED ABOUT FLUSHING, BAG CHANGING ETC. NUMEROUS QUESTIONS ASKED AND ANSWERED-VERBALIZED UNDERSTANDING documented in this encounter [facility] 06-18-2022 Note EXAMINATION: CT ABD/ PELVIS [...] mass or enlargement. KIDNEYS: Marked atrophy of [place] kidneys. Transplant right pelvic kidney with percutaneous [...] by: MÓNICA JIMENEZ Date: 2022-06-18 13:53 [facility] 06-12-2022 Instructions Anayeli Christianson RN - 06/12/2022 3:21 PM EDT Do not take apart/disrupt nephrostomy tube system. Call Interventional Radiology and/or on-call transplant nurse [phone] for instruction if need to flush (clot or decreased flow). Take cipro 500mg, one tablet, twice per day for 14 days documented in this encounter [facility] 06-12-2022 History of Present illness Narrative Images from the original note were not included. 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 Supervisor Inventory Merchandising: Anayeli Burt Date of Liver Transplant: 04/13/2020 (Kidney), 04/13/2020 (Liver) 2 year, 1 months post Liver/Kidney Transplant Primary Disease: Hypertensive Nephrosclerosis Transplant Pot Sander: Steve Munoz Primary Care physician: Zuly Bruno [...] for appointment: no Did front end software engineer confirm current address and insurance information [...] PREFERRED LAB AND PHARMACY: None Specified [facility] [place] [phone] - [address] [address] [facility] [address], [address] [facility] [address] [id number] [place] [address] [address] [facility] [address] [facility] [address] [facility] [address] [place] [address] ROS and SCREEN: Chest Pain: negative Cough: [...] 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 His [place] kidney disease was noted to be presumed [...] 05/17/2022 Surgeon: Enzo Heart DO; Location: [facility] INTERVENTIONAL RADIOLOGY (VIR) LIVER TRANSPLANT, ORTHOTOPIC N/A 04/12/2020 Laterality: N/A; Surgeon: LU Palma; Location: [facility] SAME DAY SURGERY MAIN OR KIDNEY TRANSPLANT W/O [place] NEPHRECTOMY N/A 04/12/2020 Laterality: N/A; Surgeon: LU Palma; Location: [facility] SAME DAY SURGERY MAIN OR OTHER SURGICAL [...] you have any questions. Steve Munoz MD carton inspector Division of Nephrology [facility] documented in this encounter [facility] 06-04-2022 Instructions TATI GROVE - 06/04/2022 11:04 AM EDT Thank you for joining us for your neph tube follow up. We recommend routine exchange every 8-10 weeks. Please reach out at [phone] when it is time to set your next routine exchange. Thank you IR clinic documented in this encounter [facility] 06-04-2022 History of Present [...] exchange. Verbalized understanding. documented in this encounter [facility] 05-20-2022 Note Formatting of [...] time of his discharge. Leon Cook RN [facility] 05-20-2022 Miscellaneous Notes Patient [...] provide teaching before his discharge Leon RN #[id number] Leon Cook RN Afternoon assessment completed at [...] Discussed with [facility] re: possible urine culture performed at their [...] Kallie Lorenzana RN documented in this encounter [facility] 05-20-2022 Note Formatting of [...] discharge/transition of care. Outcome: Adequate for Discharge [facility] 05-20-2022 Note Formatting of this n ote might be different from the original. Anne Dillard MD R10 Rm 100 Jensen Orellana Please let's have a clear order on how the nephrostomy site dressing need to be changed when the patient goes home so we provide teaching before his discharge Leon RN #[id number] Leon Cook, RN [facility] 05-20-2022 History of Present illness Narrative Images from the original note were not included. [facility] Note: [facility] the following [facility] prescription(s): Medication reconciliation was completed with comparison to discharge reconciliation report. The prescription(s) will be delivered to the patient's bedside on 05/20/22. Total cost is $0. Yanira Her RPh,PharmD Specialty ([place]om) [phone] [facility] [phone] [facility] [phone] [facility] [phone] [place] [phone] Bedside Delivery ([facility]) [phone] Attending I saw George Styles at the [...] injection 320 mg/mL for IR PRN Enzo Petersentt, DO 15 mL at 05/17/22 1101 [Held [...] Daily Progress Note Patient: George Styles, 1970, [id number] Physician: Liam Julian MD, PGY-3, Pager #[phone], [id number] Subjective/Interval History: No acute events overnight. Passed [...] Saldana MD Division of Hospital Medicine Pager [phone] Attending I saw George Styles at the [...] Daily Nishant Gamez MD 100 mg at 05/17/22946 amLODIPine (NORVASC) tablet 5 mg 5 mg [...] Daily Progress Note Patient: George Styles, 1970, [id number] Physician: Nishant Gamez MD, PGY2, Pager #[phone], [id number] Subjective/Interval History: Nephrostomy tube placed yesterday with [...] 428) Bun/Creat/Cl/CO2/Glucose: 41/2.96/104/26/136 (05/18 428) Ptt/Pt/Inr: 31.0/14.4/1.1 (06/19 0428) Assessment/Plan: George Styles is a 52 y.o. [...] stablized for this to be sales representative facility services. Daya Saldana MD (Peggy) Division of Hospital Medicine Pager [phone] Internal Medicine Daily Progress Note Patient: George Styles, 1970, [id number] Physician: Nishant Gamez MD, PGY2, Pager #[phone], [id number] Subjective/Interval History: Worsening creatinine this morning with [...] is still working to his knowledge. Daya Montes (Peggy). Les, MD Division of Hospital Medicine Pager [phone] Attending I saw George Styles at the [...] of chart and discussion with treatment team, Architectural Practice Manager has not identified needs at this time. [...] follow. Introduced self and role of the flag decorator to patient. Provided emotional and spiritual support and the patient responded by sharing their experience and discussed the following: - Spirituality/Voodoo Affiliation: As a kid attended Mosque rastafarian but not a strong identity now - Family support - pt's brothers live close by Computer Service Technician provided: - Supportive presence - Active listening - Validation of feelings/emotions Patient encouraged to request a flag decorator as needed. Chaplains are available in-house 24 hours a day and 7 days a week. For urgent matters in [facility], please page [phone]. If the request is not urgent, please enter a consult. Consults are responded to within 24 hours. Angie Singh Mdiv, [facility] Transplant [place] [address] [facility] Computer Service Technician [place] [phone] [email or web address] 22/06 [facility] Pager [phone] 22/06 Pager ,BSH, and Brock 1500 22/06 David Pager [phone] [...] of life story;Identifying support system Explored Expectations Marriage And Family Counselor Education Marriage And Family Counselor Service Available Yes Educated Patient Outcomes Patient Outcomes Articulated purpose/meaning Plan of Care Continue Visiting PRN Internal Medicine Daily Progress Note Patient: George Stylse, 1970, [id number] Physician: Nishant Gamez MD, PGY2, Pager #[phone], [id number] Subjective/Interval History: Overall feeling okay this morning. 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 [...] Supervision Transfer Assessment: Sit to Stand Transfer Summers Level: Sit->Stand: independent Skilled Intervention/Details: Sit->Stand: x1 from EOB Stand to Sit Transfer Summers Level: Stand->Sit: supervision Assistive Device: Stand->Sit: armed chair Skilled Rationale: Controlled descent for sitting, Verbal cues Gait/Functional Mobility: Gait Assessment Summers Level: Gait: supervision Assistive Device: Gait: gait belt Gait Distance (feet): 200 Gait Deviations Identified: decreased grace, decreased step length, decreased stride length Gait Skilled Rationale: verbal, upright posture Skilled Intervention/Details - Gait: Pt with steady gait without LOB or complaints of SOB. 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 IADL History IADLs: independent Primary Language: Turkish Home Management Skills: independent Meal Prep Responsibility: [...] Assessment: Transfer Assessment: Sit to Stand Transfer Summers Level: Sit->Stand: independent Skilled Rationale: Cues for increased safety Skilled Intervention/Details: Sit->Stand: x1 EOB Stand to Sit Transfer Summers Level: Stand->Sit: supervision Assistive Device: Stand->Sit: gait belt, armed chair Skilled Rationale: Verbal cues, Controlled descent for sitting, Cues for increased safety Skilled Intervention/Details: Stand->Sit: cues for hand placement and controlled descent Functional Mobility: Functional Mobility Summers Level: Functional Mobility/Gait: stand-by assist Assistive Device: [...] DAY SURGERY MAIN OR KIDNEY TRANSPLANT W/O [place] NEPHRECTOMY N/A 04/12/2020 Laterality: N/A; Surgeon: [...] by: Mel Norman OT, OTR/L License #: [id number] pager # [phone] 05/20/2022 Upon discontinuation of Acute Care Occupational Therapy Services or patient discharge from the hospital this note represents the current Occupational Therapy Discharge Summary. documented in this encounter [facility] 05-20-2022 Hospital course Narrative [...] Saldana MD Division of Hospital Medicine p: [phone] f: [phone] CONSULTS DURING ADMISSION: IP CONSULT TO SURGERY - UROLOGY IP CONSULT TO NEPHROLOGY - TRANSPLANT (MEDICINE) IP CONSULT TO INTERVENTIONAL RADIOLOGY IP CONSULT TO PHYSICAL THERAPY IP CONSULT TO OCCUPATIONAL THERAPY IP CONSULT TO PHARMACY BEDSIDE DISCHARGE MED DELIVERY IMAGING / PROCEDURES / RESULTS: Should you require further information or copies of results or reports please contact Medical Information Management @ [phone] LABS AT TIME OF DISCHARGE: Lab Results [...] AT DISCHARGE: Zuly Bruno [address] [facility] / [place] [address] MEDICATIONS: Discharge Orders CT ABDOMEN/PELVIS WITHOUT CONTRAST [...] CAPS Generic drug: docusate Follow-up: Zuly Bruno, MACHINE PLATE STACKER [address] [facility] [phone] Schedule an appointment as soon as possible for a visit Follow-up appointment with your, primary care physician within 7-10 days, after discharge. [address] [facility] [address] Follow up The department of urology will call you with a follow up appointment. LU Ovalle [address] 11[address] [facility] [address] Follow up Please make a follow up appointment with Dr. Munoz's office. Upcoming Appointments (up to five)-Some appointments for Medical Center outpatient clinics or diagnostic testing locations are not displayed below Provider Department Dept Phone 06/04/2022 10:40 AM LEWIS MACIEL [facility] Interventional Radiology Clinic [phone] 06/27/2022 1:30 PM [facility], [facility] Department of Radiology Arrive at: Arrive to First Floor Registration Desk [phone] 06/27/2022 2:40 PM Ryan Yepez [facility] Arrive at: Arrive to 2nd Floor, Registration [address] 10/31/2022 1:00 PM Steve Colón [facility] Transplant [facility] [phone] 01/16/2023 9:40 AM TRANSPLANT HEPATOLOGY 3, [facility] Transplant [facility] [phone] Associated attestation - Daya Saldana MD - [...] MD (Peggy) Division of Hospital Medicine Pager [phone] documented in this encounter [facility] 05-20-2022 Hospital Discharge instructions Giulia Cavazos [...] be changed by Interventional Radiology. Please call [phone] to schedule this appointment and with any questions or concerns you may have regarding the nephrostomy tube. If you have questions or concerns, please call Interventional Radiology at SOMEONE FROM INTERVENTIONAL RADIOLOGY WILL CALL YOU FOR A FOLLOW UP IN THE IR CLINIC Giulia Cavazos RN Nurse Coordinator Interventional Radiology Interventional Radiology Outpatient scheduling documented in this encounter [facility] 05-19-2022 Note Formatting of this n [...] Ongoing Goal: Interdisciplinary Rounds/Family Conf Outcome: [facility] Note Formatting of this n ote might be different from the original. Discussed with [facility] re: possible urine culture performed at their facility. However, based on urinalysis completed at that time, which was only notable for hematuria, culture was not performed and sample no longer feasible for culture. Liam Julian MD Internal Medicine/Pediatrics, PGY-3 [facility] 05-18-2022 Note Formatting of this n ote might be different from the original. 2003: IHIS message sent to Dr Justyn Wen, regarding patient passing a small kidney stone, about the size of pea. MD notified. Stone left in strainer in pt bathroom. 0500: IHIS message sent to Dr Justyn Wen, regarding pt BP 174/77. [facility] 05-18-2022 Note Formatting of [...] outcomes by discharge/transition of care. Outcome: Ongoing [facility] 05-18-2022 Note Formatting of [...] becomes hyponatremic, NS should instead be used. [facility] Work Phone: 05-18-2022 Note Formatting of this n ote might be different from the original. IHIS chat sent to Dr Tray Quintana, regarding pt BP 190/86. Pt complaining of pain at site of neph tube. PRN pain medication given per order parameters. Pt denies any other symptoms at this time. notified and aware. [facility] 05-17-2022 Note Formatting of this n ote might be different from the original. At 0900, I rounded with Dr. Gamez and Dr. Saldana. At that time I checked Mr. Styles's vital signs. His pulse oximeter was low and he was tachypneic. Verbal order at bedside to put nasal cannula on starting at 2liters oxygen and to provide incentive spirometer. [facility] 05[facility]17[facility]22 Note Formatting of this n ote might be different from the original. Interventional Radiology procedure completed with IR Attending Dr. Heart / Dr. Le of percutaneous right nephrostomy tube placement transplant kidney 10.2 Fr Griffin acosta Pt tolerated procedure with moderate sedation local numbing agent . Transported to inpatient after phase I recovery. Post procedure orders in place. [facility] 05[facility]16[facility]22 Note Formatting of this n ote might be different from the original. At 1530, I text chavad Kaitlynn Gomez MD that patient has only had 25ml urine output in matias this afternoon. [facility] 05-16-2022 Note Formatting of [...] with questions. Evan Byrd MD Urology, PGY-2 #[id number] [facility] Work Phone: 05-16-2022 Note [...] hospitalization care will be discharge to home. [facility] 05-16-2022 Consult note Associated [...] he was given flomax and sent home. [place] better but noticed more pain and decreased [...] best assessment and recommendations. Maxi Pringle MD [facility] Work Phone: 05-16-2022 Consult note Associated Order (s): IP CONSULT TO NEPHROLOGY - TRANSPLANT (MEDICINE) I saw George Styles at the [facility] on 05/16/2022. Reason for Consultation: kidney stone and FAYE; LK transplant 2020 on tac/cellcept. Held them on admission last [...] he was given flomax and sent home. [place] better but noticed more pain and decreased [...] states he went to his local ED [place] and he was put on Flomax and he did improve. Pt states last night he was unable to void with severe right sided abd pain. Pt states nausea and no vomiting or fevers. Pt states he went back to [place] ED at 0100 and they placed a [...] orthotopic (N/A, 04/12/2020); and kidney transplant w/o [place] nephrectomy (N/A, 04/12/2020). 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 The [place] kidneys are progressively atrophic bilaterally compared to [...] of 06/14/2020 are no longer present. The [place] distal right ureter is decompressed beyond this [...] with surgical history for renal graft and [place] right urinary drainage, as a discrete ureteroneocystostomy is not identified, and the graft may be draining via a ureteroureterostomy. Urology consultation recommended. 3. The [place] kidneys are bilaterally atrophic, with right renal sinus calcifications consistent with nonobstructing right [place] renal calculi up to 6 mm. Normal [...] PGY-3, Department of Urologic Surgery Pager #: [phone] Associated attestation - Ryan Yepez MD - [...] flomax documented in this encounter [facility] 05-16-2022 Note Formatting of this n [...] supported Trust Relationship/Rapport: care explained choices provided [facility] 05-16-2022 Note Formatting of this n ote might be different from the original. On admission to [facility], a dual RN initial assessment of skin condition was performed by Kallie Lorenzana RN and Sheri Arguelles RN. Skin Assessment: WDL Jose Score: 20 LDA Added:N Kallie Lorenzana RN [facility] 05-15-2022 Emergency department Note Report given to Kallie RN at 10 [facility] 05-15-2022 Emergency department Note [...] DAY SURGERY MAIN OR KIDNEY TRANSPLANT W/O [place] NEPHRECTOMY N/A 04/12/2020 Laterality: N/A; Surgeon: [...] arrives from [facility] with kidney stones. Pt states he had right lower abd pain and right flank pain with blood in his urine since Thursday. Pt states he went to his local ED [place] and he was put on Flomax and he did improve. Pt states last night he was unable to void with severe right sided abd pain. Pt states nausea and no vomiting or fevers. Pt states he went back to [place] ED at 0100 and they placed a matias and CT scan completed and multiple kidney stones noted. [facility] and kidney transplant in 03/2020. documented in this encounter [facility] 05-15-2022 History and physical note Internal Medicine Admission History & Physical Patient: George Styles, 1970, [id number] Physician: Evan Bennett MD, PGY1, Pager #[phone], GM 4 service Date of face to [...] Laterality: N/A; Surgeon: LU Palma; Location: [facility] SAME DAY SURGERY MAIN OR KIDNEY TRANSPLANT W/O [place] NEPHRECTOMY N/A 04/12/2020 Laterality: N/A; Surgeon: LU Palma; Location: [facility] SAME DAY SURGERY MAIN OR OTHER SURGICAL [...] erythema: Skin: No jaundice or rash Neuro: backup sawyer 3-7, 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 Strength grossly [...] dilation of the calyces may represent narrowing/partial [id number] ofthe ureter and mild hydronephrosis or sequela [...] MD Division of Hospital Medicine [id number] [facility] Work Phone: 05-15-2022 History and physical note Internal Medicine Admission History & Physical Patient: George Styles, 1970, [id number] Physician: Evan Bennett MD, PGY1, Pager #[phone], GM 4 service Date of face to [...] DAY SURGERY MAIN OR KIDNEY TRANSPLANT W/O [place] NEPHRECTOMY N/A 04/12/2020 Laterality: N/A; Surgeon: LU Palma; Location: [facility] SAME DAY SURGERY MAIN OR OTHER SURGICAL [...] erythema: Skin: No jaundice or rash Neuro: backup sawyer 3-7, 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 Strength grossly [...] dilation of the calyces may represent narrowing/partial [id number] ofthe ureter and mild hydronephrosis or sequela [...] [id number] documented in this encounter [facility] 05-15-2022 Emergency department Note Bladder scan with Dr Villatoro at bedside, 14ml noted [facility] 05-15-2022 Consult note Associated Order (s): [...] states he went to his local ED [place] and he was put on Flomax and he did improve. Pt states last night he was unable to void with severe right sided abd pain. Pt states nausea and no vomiting or fevers. Pt states he went back to [place] ED at 0100 and they placed a [...] orthotopic (N/A, 04/12/2020); and kidney transplant w/o [place] nephrectomy (N/A, 04/12/2020). 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 The [place] kidneys are progressively atrophic bilaterally compared to [...] of 06/14/2020 are no longer present. The [place] distal right ureter is decompressed beyond this [...] with surgical history for renal graft and [place] right urinary drainage, as a discrete ureteroneocystostomy is not identified, and the graft may be draining via a ureteroureterostomy. Urology consultation recommended. 3. The [place] kidneys are bilaterally atrophic, with right renal sinus calcifications consistent with nonobstructing right [place] renal calculi up to 6 mm. Normal [...] PGY-3, Department of Urologic Surgery Pager #: [phone] Associated attestation - Ryan Yepez MD - [...] future before surgical intervention --may continue flomax [facility] Work Phone: 05-15-2022 Emergency department Note Advised Dr Schneider concerning no urine output via matias catheter. [facility] 05-15-2022 Physician Emergency department [...] plan of care. Gian Villatoro MD 05/15/222003 [facility] Work Phone: 05-15-[address] Schneider made aware of only 30 ml urine via matias since arrival to room. [facility] 05-15-2022 Physician Emergency department Note dEPARTMENT [...] DAY SURGERY MAIN OR KIDNEY TRANSPLANT W/O [place] NEPHRECTOMY N/A 04/12/2020 Laterality: N/A; Surgeon: [...] any incorrections. Matt Schneider MD Resident 05/15/222030 [facility] Work Phone: 05-15-2022 Emergency department Note Pt arrives from [facility] with kidney stones. Pt states he had right lower abd pain and right flank pain with blood in his urine since Thursday. Pt states he went to his local ED [place] and he was put on Flomax and he did improve. Pt states last night he was unable to void with severe right sided abd pain. Pt states nausea and no vomiting or fevers. Pt states he went back to [place] ED at 0100 and they placed a matias and CT scan completed and multiple kidney stones noted. [facility] and kidney transplant in 03/2020. [facility] 03-14-2022 History of Present [...] No Mailing/Pickup Date: 03/17/2022 Shipping Address: [address] [place] [address] [address] Contact Info: Specialty (Yanci) [phone] Jakob [phone] [facility] [phone] David [phone] Bedside Delivery ([facility]) [phone] documented in this encounter [facility] History of Present illness [...] Goal Progress: Satisfactory Contact Info: Specialty (Yanci) [phone] Jakob [phone] [facility] [phone] David [phone] Bedside Delivery ([facility]) [phone] [facility]: Call Information: Date [...] Location: Home Signature Required: Yes Shipping Address: [address] [place] [address] Contact Info: Specialty (Isom) [phone] Jakob [phone] [facility] [phone] David [phone] Bedside Delivery ([facility]) [phone] documented in this encounter [facility] Evaluation + Plan note Future Appointments Appointment Date:11/22/2024 09:00:00 AM Scheduled Provider:JONATHAN Almodovar APRN, [place] [facility] Location:[facility] Appointment Type:URO Office Visit [facility] Evaluation note Diagnosis FAYE (acute kidney injury)- Primary Acute kidney failure, unspecified Hydronephrosis due to obstruction of ureteral orifice Hydronephrosis due to obstruction of ureteral orifice FAYE (acute kidney injury) Acute kidney failure, unspecified [facility] Follow-up exam- Primary Unspecified follow-up examination [facility] Immunosuppressed status- Primary Unspecified disorder of immune mechanism Kidney replaced by transplant Liver replaced by transplant Abnormal blood chemistry Other abnormal blood chemistry High risk medication use Encounter for long-term (current) use of other medications Aftercare following organ transplant Liver transplant recipient [facility]- [facility] Other hydronephrosis- Primary documented in this encounter [facility] [facility] FAYE (acute kidney injury) Acute kidney failure, unspecified [facility] Diagnosis Other hydronephrosis- Primary -donor kidney transplant recipient Kidney replaced by transplant [facility] Diagnosis Other hydronephrosis [facility] Diagnosis 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) Encounter for screening for malignant neoplasm of prostate Special screening for malignant neoplasm of prostate [facility] Diagnosis Abnormal blood chemistry- Primary Other abnormal blood chemistry Liver transplant recipient Kidney replaced by transplant Immunosuppressed status Unspecified disorder of immune mechanism Aftercare following organ transplant [facility] Diagnosis Kidney replaced by transplant- Primary [facility] Diagnosis Immunosuppressed status- Primary Unspecified disorder of immune mechanism Kidney replaced by transplant Aftercare following organ transplant High risk medication use Encounter for long-term (current) use of other medications Other general symptoms and signs Abnormal blood chemistry Other abnormal blood chemistry Hypertension secondary to other renal disorders [facility] Diagnosis Histoplasmosis- Primary [...] Fever Fever, unspecified [facility] Diagnosis Bilateral lower [...] pre-operative examination [facility] Heart failure, diastolic, acute- Primary Acute diastolic heart failure [facility] Diagnosis Liver lesion- Primary Other specified disorders of liver Liver transplant recipient High risk medication use Encounter for long-term (current) use of other medications Therapeutic drug monitoring Encounter for therapeutic drug monitoring Immunocompromised Unspecified immunity deficiency [facility] Diagnosis Kidney replaced by transplant- Primary [facility] N[facility]ative No data available for this section [facility] progress note No data available for this section [facility] reason for referral (narrative)* Consultation (Routine) - New Request Specialty Diagnoses / Procedures Referred By Deni edwards Referred To Contact Interventional Radiology Diagnoses Hydronephrosis due to obstruction of ureteral orifice Daya Saldana MD [address] [place] [address] Referral ID Status Reason Start Date Expiration Date V isits Requested Visits Authorized [id number] New Request 05/18/2022 06/12/2023 1 1 * Radiology (Emergency) - New Request Specialty Diagnoses / Procedures Referred By Deni edwards Referred To Contact Procedures US RENAL TRANSPLANT SCAN Daya Saldana MD [address] [place] [address] Referral ID Status Reason Start Date Expiration Date V isits Requested Visits Authorized [id number] New Request 05/16/2022 06/10/2023 1 1 * Consultation (Routine) - New Request Specialty Diagnoses / Procedures Referred By Contac t Referred To Contact Urology Diagnoses FAYE (acute kidney injury) Ryan Yepez MD [address] [place] [address] [address] [place] [address] Referral ID Status Reason Start Date Expiration Date V isits Requested Visits Authorized [id number] New Request 05/16/2022 06/10/2023 1 1 * MRI/CAT Scan (Routine) - New Request Specialty Diagnoses / Procedures Referred By Contac t Referred To Contact Diagnoses FAYE (acute kidney injury) Procedures CT ABDOMEN/PELVIS WITHOUT CONTRAST CHG CT SCAN,ABDOMENT AND PELVIS,W/O CONTRAST Ryan Yepez MD [address] [place] [address] [address] [place] [address] Referral ID Status Reason Start Date Expiration Date V isits Requested Visits Authorized [id number] New Request 05/16/2022 06/10/2023 1 1 * (Routine) - Pending Review Specialty Diagnoses / Procedures Referred By Contac t Referred To Contact Procedures PLATELET MONITORING PER PROTOCOL Daya Saldana MD [address] [place] [address] Referral ID Status Reason Start Date Expiration Date V isits Requested Visits Authorized [id number] Pending Review 05/15/2022 06/09/2023 1 1 * (Routine) - Pending Review Specialty Diagnoses / Procedures Referred By Contac t Referred To Contact Procedures DVT/VTE RISK ASSESSMENT Daya Saldana MD [address] [place] [address] Referral ID Status Reason Start Date Expiration Date V isits Requested Visits Authorized [id number] Pending Review 05/15/2022 06/09/2023 1 1 * (Routine) Specialty Diagnoses / Procedures Referred By Contac t Referred To Contact Evan Bennett MD [address] [place] [address] Referral ID Status Reason Start Date Expiration Date Visits Re quested Visits Authorized * (Routine) Specialty Diagnoses / Procedures Referred By Deni t Referred To Contact Evan Bennett MD [address] [place] [address] Referral ID Status Reason Start Date Expiration Date Visits Re quested Visits Authorized [facility] for referral (narrative)* Consultation (Routine) - New Request Specialty Diagnoses / Procedures Referred By Contac t Referred To Contact Sleep Medicine Diagnoses Kevin Conroy MD [address], [place] [address] Referral ID Status Reason Start Date Expiration Date V isits Requested Visits Authorized [id number] New Request 09/10/2023 10/04/2024 1 1 * MRI/CAT Scan (Routine) - New Request Specialty Diagnoses / Procedures Referred By Contac t Referred To Contact Diagnoses Histoplasmosis Procedures CT CHEST WITHOUT CONTRAST CHG DIAGNOSTIC COMPUTED TOMOGRAPHY THORAX W/O CNTRST Kevin Prince MD [address] [place] [address] Referral ID Status Reason Start Date Expiration Date V isits Requested Visits Authorized [id number] New Request 09/10/2023 10/04/2024 1 1 * Radiology (Routine) - New Request Specialty Diagnoses / Procedures Referred By Contac t Referred To Contact Procedures US RENAL TRANSPLANT SCAN Steve Munoz MBBS [address] [place] [phone] Referral ID Status Reason Start Date Expiration Date V isits Requested Visits Authorized [id number] New Request 08/29/2023 09/22/2024 1 1 * (Routine) - New Request Specialty Diagnoses / Procedures Referred By Contac t Referred To Contact Procedures PLATELET MONITORING PER PROTOCOL Steve Munoz MBBS [address], [place] [address] Referral ID Status Reason Start Date Expiration Date V isits Requested Visits Authorized [id number] New Request 08/28/2023 09/21/2024 1 1 * (Routine) - New Request Specialty Diagnoses / Procedures Referred By Contac t Referred To Contact Procedures DVT/VTE RISK ASSESSMENT Steve Munzo MBBS [address] [place] [phone] Referral ID Status Reason Start Date Expiration Date V isits Requested Visits Authorized [id number] New Request 08/28/2023 09/21/2024 1 1 [facility] Instructions * Patient Instructions - Christin Elizabeth, DEEP-MACHINE PLATE STACKER - 10/19/2018 9:21 AM EST You should take an extra dose of the lactulose as needed so that you are having 3-4 bowel movementsdaily. You should start the chemical dependency counseling as soon as possible. If you have questions, call the transplant social media intern Fidelina Pierson. in this encounter* Patient Instructions - Sophie Cary RN - 10/12/2018 11:09 AM EST You have been seen in the pre-transplant evaluation clinic by Dr. Restrepo and Sophie Cary. Sophie Cary is your pre-academic affairs coordinator she can be reached at [phone] at any time for questions during the pre-transplant process. Your evaluation is complete pendin. Abdominal ultrasound. 2. 6 minute walk test. 3. Cardiology evaluation. Additionally, your health and safety specialist will recommend testing to screen for coronary artery disease. This will be scheduled for you after your cardiology visit. 4. Your coordinator will be requesting record from your last dental visit, colonoscopy and EGD. 5. Please work to complete social work recommendations. Your social media intern will be contacting you to follow up on your progress. 6. You have also been referred for a kidney transplant. An appointment will be scheduled for you sari evaluated in the kidney transplant clinic after you have satisfied requirements dictated by [employer]. Once your testing is complete, we [...] ___ Other ___ Other Name MRN * Kibbe, Christin Magalie, 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 - 10/19/2018 9:00 AM EST Formatting of this note may be different from the original. History of Present Illness: Chief Complaint Patient presents with Follow-up Cirrhosis George Styles is a 48 y.o. male who presents to the [facility] G[facility] today regarding his diagnosis/chief complaint(s) of Cirrhosis secondary to ETOH, with ESRD follows with Dr. Orr. Currently undergoing evaluation for liver/kidney transplant. Has been seen in transplant clinic for eval. Still undergoing pre testing. Diagnosed in April 2018. Last drink was immediately prior to hospital admission in [place] for ACLF. Hospital course notable for ARF [...] kidney transplant evaluation. Pt was AOx3. Transplant Sql Analyst role/function was explained and reviewed. The patient was informed that the results of this assessment will be shared with the referring provider and the transplant team. The patient verbalized understanding of this information. The [facility] psychosocial assessment consent form has been explained to patient and has been signed. Pt is completing this evaluation with brother (David) in the Outpatient setting. SWK educated pt on the benefits of completing/filing advanced directives and resources were offered. Pt identifies with [employer] episcopalian. Pt confirms being a [place] Citizen. Pt.'s primary language is Turkish. Pt confirms the ability to read,write, and understand Turkish. Pt denies potential donors. Donor cards and [...] has valid license, does not regularly drive (MACHINE PLATE STACKER recommends that he not to drive). He [...] as well as referred him to pre academic affairs coordinator. 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 Additional support includes his other brother Tyshawn and his Mary live fifteen minutes away. 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 He confirms being comfortable asking for [...] in 2010, he was employed by the [employer]. He has access to SSDI payment (SSDI starts in November) in regards to financial means pre/ post-transplant. Pt confirms (meeting bills currently, ) being able to meet daily needs. Patient's brother asking for additional information on community resources, food stamps and [employer]. Refer him to pt.'s dialysis center and the [facility]. Hereports access to Medicaid. Pt. denies [...] [facility] in [place], court ordered treatment in 2001 and in [...] by patient from his primary medical provider- [facility] patient was noted as attending an [...] He was provided with local AOD resources, [facility] AOD informational packet. Pt was [...] new visit Date of service: 10/12/2018 -Referring bone density technician for today's consult: -Primary Care Provider: Zuly Bruno CC: Chief Complaint Patient presents with Liver Recipient Evaluation History of Present Illness George Styles is a 48 y.o. male who presents to the [facility] liver transplant surgery clinic today for evaluation [...] dialysis Pre-transplant evaluation for liver transplant George Stylse is a 48 y.o. 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 Patient George Styles ([id number]), accompanied by his brother, was seen on [...] further questions. Sophie GUERINN, RN Liver Supervisor Inventory Merchandising Etiology: ETOH HCC: No ETOH: Yes Last [...] Yovani Orr MD [address] [address] Status Reason Specialty Diagnoses / Procedures Referred By Contact Referred To Contact New Request Diagnoses Cirrhosis of liver with ascites, unspecified hepatic cirrhosis type Procedures US ABDOMEN RUQ/LIVER/GB Yovani Orr MD [address] [address] Specialty Diagnoses / Procedures Referred By Contac t Referred To Contact Diagnoses FAYE (acute kidney injury) Procedures CT ABDOMEN/PELVIS WITHOUT CONTRAST CHG CT SCAN,ABDOMENT AND PELVIS,W/O CONTRAST Central Scheduling [address] [place] [address] Referral ID Status Reason Start Date Expiration Date V isits Requested Visits Authorized [id number] Pending Review 05/16/2022 06/10/2023 1 1 Specialty Diagnoses / Procedures Referred By Contac t Referred To Contact Diagnoses Other hydronephrosis Procedures FLUORO IMAGING FOR UROLOGY Ryan Yepez MD [address] [place] [address] Referral ID Status Reason Start Date Expiration Date V isits Requested Visits Authorized [id number] New Request 07/07/2022 08/01/2023 1 1 Specialty Diagnoses / Procedures Referred By Contac t Referred To Contact Procedures DIRECT ADMIT REQUEST Steve Munoz MBBS [address] [place] [address] Referral ID Status Reason Start Date Expiration Date V isits Requested Visits Authorized [id number] New Request 08/28/2023 09/21/2024 1 1 Specialty Diagnoses / Procedures Referred By Contac t Referred To Contact Radiology Diagnoses DARLENE (obstructive sleep apnea) Primary hypertension (CMS/HCC) Bilateral lower extremity edema Shortness of breath Procedures Echocardiogram 2D complete Zuly Bruno, GLOVE MACHINE OPERATOR [address] [place] [address] Referral ID Status Reason Start Date Expiration Date Visits Requested Visits Authorized [id number] Incomplete Perform Procedure 01/06/2024 07/04/2024 1 1 Specialty Diagnoses / Procedures Referred By Contac t Referred To Contact Procedures US IMAGING REGIONAL ANESTHESIA Kehinde Gutierrez MD [address] [place] [address] Referral ID Status Reason Start Date Expiration Date V isits Requested Visits Authorized [id number] New Request 01/22/2024 02/15/2025 1 1 Specialty Diagnoses / Procedures Referred By Contac t Referred To Contact Cardiovascular Medicine Diagnoses Heart failure, diastolic, acute Kelvin Pacheco MD, MBBS [address] 1[address] [place] [address] Referral ID Status Reason Start Date Expiration Date V isits Requested Visits Authorized [id number] New Request 01/20/2024 02/13/2025 1 1 Specialty Diagnoses / Procedures Referred By Contac t Referred To Contact Procedures US ABDOMEN LIVER DOPPLER US ABDOMEN LIVER TRANSPLANT DOPPLER Timothy Joseph MD [address] [facility] [address] [place] [address] Referral ID Status Reason Start Date Expiration Date V isits Requested Visits Authorized [id number] New Request 01/16/2024 02/09/2025 1 1 Specialty Diagnoses / Procedures Referred By Contac t Referred To Contact Procedures DVT/VTE RISK ASSESSMENT Kelvin Pacheco MD, MBBS [address] [place], [place] [phone] Referral ID Status Reason Start Date Expiration Date V isits Requested Visits Authorized [id number] New Request 01/16/2024 02/09/2025 1 1 Specialty Diagnoses / Procedures Referred By Contac t Referred To Contact Procedures PLATELET MONITORING PER PROTOCOL Kelvin Pacheco MD, MBBS [address] [place] [address] Referral ID Status Reason Start Date Expiration Date V isits Requested Visits Authorized [id number] New Request 01/16/2024 02/09/2025 1 1 Referral ID Status Reason Start Date Expiration Date V isits Requested Visits Authorized [id number] New Request 01/16/2024 02/09/2025 1 1 Specialty Diagnoses / Procedures Referred By Contac t Referred To Contact Procedures ECG Kelvin Pacheco MD, MBBS [address] [place], [place] [phone] Referral ID Status Reason Start Date Expiration Date V isits Requested Visits Authorized [id number] New Request 01/16/2024 02/09/2025 1 1 Specialty Diagnoses / Procedures Referred By Contac t Referred To Contact Diagnoses Liver lesion Procedures MRI ABDOMEN WITH AND WITHOUT CONTRAST CHG MRI ABDOMEN W/O & W/CONTRAST MATERIAL Daisha Max DO [address] [place], [place] [address] Referral ID Status Reason Start Date Expiration Date V isits Requested Visits Authorized [id number] New Request 06/17/2024 07/12/2025 1 1 Advance Directives Documents on File Type Date Recorded Patient Counselor Supervisor Expl anation Advance Directives and Living Will Power of Roving Department End Finder Latest Code Status on File Code Status [...] History Records FoundNo Family History Records Found No data available for this section Additional Source Comments Reason for Visit (unrecogniz ed section and content) Reason Comments Follow-up Cirrhosis Status Reason Specialty Diagnoses / Procedures Referred By Contact Referred To Contact New Request Diagnoses Cirrhosis of liver with ascites, unspecified hepatic cirrhosis type Procedures US ABDOMEN RUQ/LIVER/GB Yovani Orr MD [address] [address] Status Reason Specialty Diagnoses / Procedures Referre d By Contact Referred To Contact Denied Diagnoses Alcoholic cirrhosis, unspecified whether ascites present Pre-transplant evaluation for liver transplant Procedures MRI ABDOMEN WITH CONTRAST TN MRI, ABDOMEN W/CONTRAST Yovani Orr MD [address] [address] Reason Comments Liver Recipient Evaluation Status Reason Specialty Diagnoses / Procedures Referred By Contact Referred To Contact New Request Transplant / Transplant Surgery Procedures PRE NEW PATIENT Yovani Orr MD [address] [address] Alfredito Restrepo MD [address] [place] [address] Reason Comments Reschedule Reason Comments Outside Medical Records Request Reason Comments Social Work Follow-up Reason Comments Kidney Stone Specialty Diagnoses / Procedures Referred By Contac t Referred To Contact Diagnoses Obstructing kidney stone, s/p kidney transplant 2019 Daya Saldana MD [address] [place] [address] [facility] [address] [place] [address] Referral ID Status Reason Start Date Expiration Date Visits Re quested Visits Authorized [id number] 1 1 Reason Comments Follow-up Reason Comments Kidney Recipient Follow-up Liver Recipient Follow-up Reason Comments Consult Reason Comments New Patient Hospital follow up Specialty Diagnoses / Procedures Referred By Contac t Referred To Contact Urology Diagnoses hosp fu with [address] prior Procedures NEW TO DOC/RET PATIENT Zuly Bruno, ROB [address] [place] [address] Ryan Yepez MD [address] [place] [address] Referral ID Status Reason Start Date Expiration Date Visits Re quested Visits Authorized [id number] Closed 06/27/2022 07/22/2023 1 1 Specialty Diagnoses / Procedures Referred By Contac t Referred To Contact Diagnoses FAYE (acute kidney injury) Procedures CT ABDOMEN/PELVIS WITHOUT CONTRAST CHG CT SCAN,ABDOMENT AND PELVIS,W/O CONTRAST Central Scheduling [address] [place] [phone] Referral ID Status Reason Start Date Expiration Date V isits Requested Visits Authorized [id number] Pending Review 05/16/2022 06/10/2023 1 1 Reason Comments Follow-up Specialty Diagnoses / Procedures Referred By Contac t Referred To Contact Urology Diagnoses 1 week fu post NT clamp Procedures RETURN PATIENT Zuly Bruno CNP [address] [place] [address] Ryan Yepez MD [address] [place] [address] Referral ID Status Reason Start Date Expiration Date Visits Requested Visits Authorized [id number] Authorized - 07/07/2022 08/01/2023 2 2 Specialty Diagnoses / Procedures Referred By Contac t Referred To Contact Diagnoses Other hydronephrosis Procedures FLUORO IMAGING FOR UROLOGY Ryan Yepez MD [address] [place] [id number] Referral ID Status Reason Start Date Expiration Date V isits Requested Visits Authorized [id number] New Request 07/07/2022 08/01/2023 1 1 Specialty Diagnoses / Procedures Referred By Contac t Referred To Contact Urology Diagnoses 1 week fu post NT clamp Procedures RETURN PATIENT Lexiesylvesterjose e Zuly, MACHINE PLATE STACKER [address] [place] [address] Ryan Yepez MD [address] [place] [address] Referral ID Status Reason Start Date Expiration Date Visits Re quested Visits Authorized [id number] Closed 07/07/2022 08/01/2023 2 2 Reason Comments Liver Recipient Follow-up Reason Comments Kidney Recipient Follow-up Reason Comments Kidney Recipient Follow-up Specialty Diagnoses / Procedures Referred By Contac t Referred To Contact Diagnoses Kidney replaced by transplant Steve Munoz MBBS [address] [place] [address] [facility] [address] [place] [address] Referral ID Status Reason Start Date Expiration Date Visits Re quested Visits Authorized [id number] 1 1 Specialty Diagnoses / Procedures Referred By Contac t Referred To Contact Diagnoses Pleural effusion on right PNEUMONIA- HX LIVER AND KIDNEY TRANSPLANT Kevin Prince MD [address] [place] [address] [facility] [address] [place] [address] Referral ID Status Reason Start Date Expiration Date Visits Re quested Visits Authorized [id number] 1 1 Reason Comments New Patient Specialty Diagnoses / Procedures Referred By Contac t Referred To Contact Cardiovascular Medicine Diagnoses Heart failure, diastolic, acute Kelvin Pacheco MD, MBBS [address] [place] [address] Referral ID Status Reason Start Date Expiration Date Visits Requested Visits Authorized [id number] Authorized - 01/20/2024 02/13/2025 5 5 Reason Comments Liver Recipient Follow-up (unrecognized sect ion and content) No Status Records FoundNo Status Records FoundNo Status Records FoundNo Status Records FoundNo Status Records FoundNo Status Records FoundNo Status Records Found INFORMATION SOURCE (unrecogn ized section and content) DATE CREATED AUTHOR 01/07/2020 [facility] DATE CREATED AUTHOR AUTHOR'S ORGANIZ ATION 01/27/2021 [facility] DATE CREATED AUTHOR AUTHOR'S ORGANIZ ATION 05/11/2023 [facility] DATE CREATED AUTHOR AUTHOR'S ORGANIZ ATION 06/03/2024 [facility] DATE CREATED AUTHOR AUTHOR'S ORGANIZ ATION 08/25/2024 [facility] DATE CREATED AUTHOR AUTHOR'S ORGANIZ ATION 09/09/2024 [facility] DATE CREATED AUTHOR AUTHOR'S ORGANIZ ATION 09/10/2024 [facility] Care Teams (unrecognized sec tion and content) Personnel Name: ZULY BRUNO CNP Address: Address: [address] [place] [address] Unix Analyst Relationship Specialty Start Date End Date Zuly Bruno CNP PCP - General 07/19/18 Comfort Rivera [facility] [address] [place] [address] Pharmacist Pharmacist 05/16/20 Angel Carpio, [facility],PharmD Pharmacist Pharmacist 05/16/20 Te Leigh RP,PharmD Pharmacist Pharmacist 01/09/21 Unix Analyst Relationship Specialty Start Date End Date Zuly Bruno CNP PCP - General 07/19/18 Comfort Rivera, [facility] [address] [facility] [id number] [place] [address] Pharmacist Pharmacist 05/16/20 Angel Carpio, [facility],PharmD Pharmacist Pharmacist 05/16/20 Te Leigh, [facility],PharmD Pharmacist Pharmacist 01/09/21 Unix Analyst Relationship Specialty Start Date End Date Zuly Bruno CNP PCP - General 07/19/18 Unix Analyst Relationship Specialty Start Date End Date Zuly Bruno CNP PCP - General 07/19/18 Unix Analyst Relationship Specialty Start Date End Date Zuly Bruno CNP PCP - General 07/19/18 Unix Analyst Relationship Specialty Start Date End Date Zuly Bruno CNP PCP - General 07/19/18 Unix Analyst Relationship Specialty Start Date End Date Zuly Bruno CNP PCP - General 07/19/18 Unix Analyst Relationship Specialty Start Date End Date Zuly Bruno CNP PCP - General 07/19/18 Unix Analyst Relationship Specialty Start Date End Date Zuly Bruno CNP PCP - General 07/19/18 Unix Analyst Relationship Specialty Start Date End Date Zuly Bruno CNP PCP - General 07/19/18 Unix Analyst Relationship Specialty Start Date End Date Zuly Bruno CNP PCP - General 07/19/18 Unix Analyst Relationship Specialty Start Date End Date Zuly Bruno CNP PCP - General 07/19/18 Unix Analyst Relationship Specialty Start Date End Date Zuly Bruno CNP PCP - General 07/19/18 Unix Analyst Relationship Specialty Start Date End Date BrianlatishaZuly tipton CNP PCP - General 07/19/18 Unix Analyst Relationship Specialty Start Date End Date BrianlatishaZuly tipton CNP PCP - General 07/19/18 Unix Analyst Relationship Specialty Start Date End Date BrianlatishaZuly tipton CNP PCP - General 07/19/18 Unix Analyst Relationship Specialty Start Date End Date BrianlatishaZuly tipton CNP PCP - General 07/19/18 Evan White DO [facility] [place] [address] Infectious Disease Infectious Disease 09/09/23 Unix Analyst Relationship Specialty Start Date End Date LexiesylvesterlatishaZuly tipton CNP PCP - General 07/19/18 Evan White DO [facility] [place] [address] Infectious Disease Infectious Disease 09/09/23 Unix Analyst Relationship Specialty Start Date End Date Zuly Bruno CNP PCP - General 07/19/18 Evan White [place] [facility] [place] [address] Infectious Disease Infectious Disease 09/09/23 Unix Analyst Relationship Specialty Start Date End Date Momo Verdugo MD PCP - General Family Medicine 05/21/23 Unix Analyst Relationship Specialty Start Date End Date Momo Verdugo MD PCP - General Family Medicine 05/21/23 Unix Analyst Relationship Specialty Start Date End Date Momo Verdguo MD PCP - General Family Medicine 05/21/23 Unix Analyst Relationship Specialty Start Date End Date Zuly Bruno CNP PCP - General 07/19/18 Evan White DO [address] [place] [id number] Infectious Disease Infectious Disease 09/09/23 Unix Analyst Relationship Specialty Start Date End Date Zuly Bruno CNP PCP - General 07/19/18 Evan White DO [address] [place] [id number] Infectious Disease Infectious Disease 09/09/23 Unix Analyst Relationship Specialty Start Date End Date Zuly Bruno CNP PCP - General 07/19/18 Evan White DO [facility] [place] [address] Infectious Disease Infectious Disease 09/09/23 Unix Analyst Relationship Specialty Start Date End Date Zuly Bruno CNP PCP - General 07/19/18 Evan White DO [address] [place] [address] Infectious Disease Infectious Disease 09/09/23 Unix Analyst Relationship Specialty Start Date End Date Zuly Bruno CNP PCP - General 07/19/18 Evan White DO [address] [place] [address] Infectious Disease Infectious Disease 09/09/23 Unix Analyst Relationship Specialty Start Date End Date Zuly Bruno CNP PCP - General 07/19/18 Unix Analyst Relationship Specialty Start Date End Date Zuly Bruno CNP PCP - General 07/19/18 Unix Analyst Relationship Specialty Start Date End Date Zuly Bruno CNP PCP - General 07/19/18 Unix Analyst Relationship Specialty Start Date End Date Zuly Bruno CNP PCP - General 07/19/18 Unix Analyst Relationship Specialty Start Date End Date Zuly Bruno CNP PCP - General 07/19/18 Unix Analyst Relationship Specialty Start Date End Date Zuly Bruno CNP PCP - General 07/19/18 Unix Analyst Relationship Specialty Start Date End Date Zuly [...] Leon Cook RN)1502 (Given - Provider: Leon Coko, SAMI) losartan (COZAAR) tablet 50 mg 50 [...] RN) 0805 (Given - Provider: Josey Braun, RN)205 [...] Reason: Patient/family refused)1451 (Not Given - Provider: iAxa Holden RN - Reason: Patient/family refused)2036 (Not [...] Plasencia, SAMI) 0958 (Given - Provider: Cheyanne Mcdonoguh RN) Potassium chloride (K-DUR) tablet ER 20 [...] (Given - Provider: Tati Ahmadi RN) 1053 ([facility] Hold - Provider: Automatic Transfer - Reason: Transfer to a Procedural area)141 ([facility] Unhold - Provider: Automatic [...] 08 (Given - Provider: Terra Heart RN)105 ([facility] Hold - Provider: Automatic Transfer - Reason: Transfer to a Procedural area)141 ([facility] Unhold - Provider: Automatic Transfer)2008 (Given - Provider: Tati Ahmadi RN) 919 (Given - Provider: Terra Heart RN) Sulfamethoxazole-trime thoprim (BACTRIM DS) 800-160 MG per tablet 1 tablet 1 tablet, Oral, THREE TIMES WEEKLY (Once per day on Thursday), First dose on Thu01/18/24 at 0900, Until Discontinued 0846 (Given - Provider: Terra Heart RN)105 ([facility] Hold - Provider: Automatic Transfer - Reason: Transfer to a Procedural area)141 ([facility] Unhold - Provider: Automatic Transfer) tacrolimus (PROGRAF) susp 0.2 mg 0.2 mg, Oral, CUSTOM FREQUENCY (Once per day on Thursday), First dose on 01/16/24 at 0900, Until Discontinued, Caution check route of administration. For sublingual administration, place liquid under tongue and allow absorption. 08 (Given - Provider: Erica Gudino RN) 1052 ([facility] Hold - Provider: Automatic Transfer - Reason: Transfer to a Procedural area)141 ([facility] Unhold - Provider: Automatic Transfer) 922 (Given - Provider: Terra Heart RN) Tamsulosin HCl (FLOMAX) capsule 0.4 mg 0.4 mg, Oral, DAILY, First dose on 01/16/24 at 0900, Until Discontinued, Slow release product. Do not chew or crush 0842 (Given - Provider: Erica Gudino RN) 08 (Given - Provider: Terra Heart RN)105 ([facility] Hold - Provider: Automatic Transfer - Reason: Transfer to a Procedural area)141 ([facility] Unhold - Provider: Automatic [...] 0841 (Given - Provider: Terra Heart RN)1053 ([facility] Hold - Provider: Automatic Transfer - Reason: Transfer to a Procedural area)1414 ([facility] Unhold - Provider: Automatic [...] from all sources in 24 hours. 1053 ([facility] Hold - Provider: Automatic Transfer - Reason: Transfer to a Procedural area)1414 ([facility] Unhold - Provider: Automatic [...] 200-200 mg and Simethicone 20 mg) 1053 ([facility] Hold - Provider: Automatic Transfer - Reason: Transfer to a Procedural area)1414 ([facility] Unhold - Provider: Automatic Transfer) guaiFENesin (ROBITUSSIN) oral solution 400 mg 400 mg, Oral, EVERY 6 HOURS NEEDED, Starting on 01/16/24 at 0202, Until 01/23/24 at 1752, Cough, Congestion 1053 ([facility] Hold - Provider: Automatic Transfer - Reason: Transfer to a Procedural area)1414 ([facility] Unhold - Provider: Automatic [...] 0016, Until 01/23/24 at 1752, Insomnia 1053 ([facility] Hold - Provider: Automatic Transfer - Reason: Transfer to a Procedural area)1414 ([facility] Unhold - Provider: Automatic Transfer)2355 (Given - Provider: Tati Ahmadi, SAMI) Ondansetron (ZOFRAN) tablet 4 mg(Linked Group 1) 4 mg, Oral, EVERY 6 HOURS NEEDED, Starting on 01/16/24 at 0202, Until 01/23/24 at 1752, Nausea / Vomiting, 1st line for Nausea/Vomiting 1053 ([facility] Hold - Provider: Automatic Transfer - Reason: Transfer to a Procedural area)1414 ([facility] Unhold - Provider: Automatic Transfer)1809 (See Alternative - Provider: Terra Heart, SAMI) 0430 (See Alternative - Provider: Tati Ahmadi, SAMI)1415 (Given - Provider: Terra Heart, SAMI) Ondansetron 4mg/2ml (ZOFRAN) injection 4 mg(Linked Group 1) 4 mg, Intravenous, EVERY 6 HOURS NEEDED, Starting on 01/16/24 at 0202, Until 01/23/24 at 1752, Nausea / Vomiting, 1st line for Nausea/Vomiting 1053 ([facility] Hold - Provider: Automatic Transfer - Reason: Transfer to a Procedural area)1414 ([facility] Unhold - Provider: Automatic Transfer)1809 (Given - Provider: Terra Heart, SAMI) 0430 (Given - Provider: Tati Ahmadi RN)1415 [...] 01/23/24 at 1752, Constipation 1st Line 1053 ([facility] Hold - Provider: Automatic Transfer - Reason: Transfer to a Procedural area)1414 ([facility] Unhold - Provider: Automatic Transfer) Prochlorperazine (COMPAZINE) injection 10 mg 10 mg, Intravenous, EVERY 6 HOURS NEEDED, Starting on 01/17/24 at 1538, Until 01/23/24 at 1752, Nausea / Vomiting, Refractory Nausea Vomiting, For IV route: dilute dose with 10mL normal saline and give by slow IV push at a rate of 5mg/min. Maximum of 40mg/day. 1053 ([facility] Hold - Provider: Automatic Transfer - Reason: Transfer to a Procedural area)1414 ([facility] Unhold - Provider: Automatic [...] BE BASED ON THE PRIMARY CLINICAL RECORDS. [employer] [facility]. provides no warranty or guarantee of the accuracy or completeness of information in this document.
== END 2024-09-13 06:47 | disposition home or self-care (01) ==
LOC: LAB 06:50
PROVIDERS: PCP Nurse Practitioner
DX: Z94.4 Liver transplant status (principal); Z94.0 Kidney transplant status; Z51.81 Encounter for therapeutic drug level monitoring; Z48.298 Encounter for aftercare following other organ transplant
CPT/HCPCS: 36415; 86612; 87385

== ENCOUNTER 2024-09-13 06:53 | Outpatient (OUT) | payer MEDICARE, MEDICAID, SELFPAY ==
--- OUTSIDE RECORDS SUMMARY | 2024-09-13 07:02 | XMS_ITS | CCD ---
Author Organization [facility] Care Team Providers Care Contact Clerk Name Role Phone Kiana Zuly Unavailable [...] Unavailable AICHHOLZ, ZULY Primary Care Unavailable Aichholz [facility], [facility] Primary Care Provider Miguel [facility] Unavailable Shirin [facility],PharmD, Angel Unavailable Unavailab makayla Leigh [facility],PharmD, Te Unavailable Unavai lable Aicholz [facility], Zuly Primary Care Provider CHANDUC, DR BURCH Admitting Unavailable MISC, DR BURCH Consulting Unavailable AICHHOLZ, REGIONAL EDUCATION MANAGER ZULY Primary Care Unavailable MISC, DR BURCH Attending Unavailable MISC, DR BURCH Admitting Unavailable MISC, DR BURCH Consulting Unavailable AICHHOLZ, REGIONAL EDUCATION MANAGER ZULY Primary Care Unavailable MISC, DR BURCH Attending Unavailable ARCELIA PIZARRO Consulting Unavailable KE BURNHAM Attending Unavailable KE BURNHAM Admitting Unavailable BARBARA, DR MÓNICA Munoz Consulting Unavailable AICHHOLZ, REGIONAL EDUCATION MANAGER ZULY Primary Care Unavailable KE BURNHAM Consulting Unavailable MISC, DR BURCH Consulting Unavailable MISC, DR BURCH Attending Unavailable AICHHOLZ, REGIONAL EDUCATION MANAGER ZULY Primary Care Unavailable MISC, DR BURCH Admitting Unavailable MISC, DR BURCH Consulting Unavailable MISC, DR DOCTOR Attending Unavailable AICHHOLZ, REGIONAL EDUCATION MANAGER ZULY Primary Care Unavailable MISC, DR BURCH Admitting Unavailable MISC, DR DOCTOR Consulting Unavailable AICHHOLZ, REGIONAL EDUCATION MANAGER ZULY Primary Care Unavailable MISC, DOCTOR Admitting Unavailable MISC, DR DOCTOR Attending Unavailable MELINDA, DR GEORGE Munoz Consulting Unavailable MELINDA, DR GEORGE Munoz Attending Unavailable AICHHOLZ, REGIONAL EDUCATION MANAGER ZULY Primary Care Unavailable MELINDA, DR GEORGE Munoz Admitting Unavailable NAUN ., KE Consulting Unavailable MIRANDA, LYNDSAY Consulting Unavailable MELINDA, DR GEORGE Munoz Consulting Unavailable NAUN ., KE Attending Unavailable NAUN ., KE Admitting Unavailable AICHHOLZ, REGIONAL EDUCATION MANAGER ZULY Primary Care Unavailable NAUN ., KE Consulting Unavailable GIAN HERRING Consulting Unavailable AICHHOLZ, REGIONAL EDUCATION MANAGER ZULY Consulting Unavailable AICHHOLZ, REGIONAL EDUCATION MANAGER ZULY Attending Unavailable AICHHOLZ, REGIONAL EDUCATION MANAGER ZULY Admitting Unavailable AICHHOLZ, REGIONAL EDUCATION MANAGER ZULY Primary Care Unavailable MISC, DR DOCTOR Consulting Unavailable MISC, DOCTOR Admitting Unavailable MISC, DR DOCTOR Attending Unavailable AICHHOLZ, REGIONAL EDUCATION MANAGER ZULY Primary Care Unavailable MISC, DR DOCTOR Consulting Unavailable MISC, DR DOCTOR Attending Unavailable MISC, DR DOCTOR Admitting Unavailable AICHHOLZ, REGIONAL EDUCATION MANAGER ZULY Primary Care Unavailable MISC, DOCTOR Admitting Unavailable MISC, DR DOCTOR Consulting Unavailable MISC, DR DOCTOR Attending Unavailable AICHHOLZ, REGIONAL EDUCATION MANAGER ZULY Primary Care Unavailable MISC, DOCTOR Admitting Unavailable MISC, DR DOCTOR Consulting Unavailable AICHHOLZ, REGIONAL EDUCATION MANAGER ZULY Primary Care Unavailable MISC, DR DOCTOR Attending Unavailable MISC, DOCTOR Admitting Unavailable MISC, DR DOCTOR Consulting Unavailable AICHHOLZ, REGIONAL EDUCATION MANAGER ZULY Primary Care Unavailable MISC, DR DOCTOR Attending Unavailable AICHHOLZ, REGIONAL EDUCATION MANAGER ZULY Consulting Unavailable AICHHOLZ, REGIONAL EDUCATION MANAGER ZULY Attending Unavailable AICHHOLZ, REGIONAL EDUCATION MANAGER ZULY Admitting Unavailable AICHHOLZ, REGIONAL EDUCATION MANAGER ZULY Primary Care Unavailable DR MÓNICA JIMENEZ Consulting Unavailable Aichholz [facility], Zuly Primary Care Provider Evan White DO Unavailable Aicholz [facility], Zuly Primary Care Provider Ann White DOs Tray Unavailable Momo Verdugo MD Primary Care Provider Aichholz REGIONAL EDUCATION MANAGER, Zuly Primary Care Provider MIGUEL CARDONA Attending Unavailable AICHHOLZ, ZULY Attending [...] Unavailable EVAN WHITE Attending Unavailabl e AICHHOLZ, ZULY Primary Care Unavailable HAKEEM ALAMO [...] Propensity to adverse reactions (disorder) 8 [facility] (20 sources) Shellfish-Deriv ed Products Propensity to adverse reactions to drug 9 [facility] (3 sources) Shellfish; Translations: [shellfish] Drug allergy (disorder) Anaphylaxis (disorder) [facility] Medications Current Medications Medication Drug [...] 1 capsule by mouth once daily b uhfvoot-O-azwlo acid (NEPHROCAPS) 1 MG capsule Take 1 [...] Oral, DAILY AT BEDTIME, First dose on [facility] 05/15/22 at 2215, Until Discontinued Start: 06-12-2020 End: 06-12-2023 take 4 capsules by mouth once daily at bedtime for pain gabapentin 100 MG capsule Take 4 capsules by mouth at bedtime. Take daily at bedtime for foot and ankle pain. 0 06/12/2020 06/12/2023 Discontinued lactulose 32959 mg powder for oral solution (19 sources) [...] DAILY (Solid Organ Transplant), First dose on [facility] 01/16/24 at 0800, Until Discontinued, Give on [...] Nausea / Vomiting. 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 White - [phone] Transplant Neph - [phone] Each 09/10/2023 01/19/2024 Discontinued (Medication Reconciliation (suppress cancel msg)) Start: 09-10-2023 CUSTOM MEDICAT ION Labs to be obtained: 1- Tacrolimus level, trough - collect twice weekly until 09/24/23, then weekly until 10/08/23, them once every two weeks there after. 2- Itraconazole level - obtain once between 09/14-09/18. 3- Chem 6 - Obtain weekly while on itraconazole Fax results to: Dr. White - [phone] Transplant Neph - [phone] Each 0 09/10/2023 Active Diatrizoate (1 [...] 09-10-2023 Start: 01-05-2023 take 1 tablet by [facility] twice daily Losartan 50 MG tablet take [...] Discontinued take 2 tablets by mo [facility] in the morning magnesium oxide (Mag-Ox) 400 MG tablet Take 2 tablets by mouth in the morning. 0 Active take [facility] magnesium oxide (MAG-OX) 400 MG [...] Coronary arteriosclerosis; Translations: [Atherosclerotic heart disease of [place] coronary artery without angina pectoris] Onset: 3 [...] 05-10-2020 Episodic Other aftercare (1 source) Other bed bug exterminator (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; Translations: [OTH MODEL SET ARTIST 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 THERAPY] Onset: 07-06-2022 Episodic Other aftercare (1 source) bed bug exterminator (current) use of aspirin; Translations: [MODEL SET ARTIST CURRENT USE OF ASPIRIN] Onset: 06-20-2022 Episodic [...] Patient informed and he verbalized understanding. Normal [facility] Office Visiton 05-13-2024 Follow-up visit [id number] George Styles 1970 M Date Provider Department Center 05/13/2024 [facility]-MIGUEL CARDONA BESSY Lopez Family History Problem Relation Age of Onset Coronary artery disease Mother Coronary artery disease Father Family Status - Relation Status Age at Mother Father Level of Service:14287 [place] OFFICE/OUTPATIENT ESTABLISHED LOW MDM 20 MIN Reason for Visit and Comments: Follow-up [695884] - Yearly follow up Normal [facility] B-TYPE NATRIURETIC PEPTIDE ( BRAIN)on 02-26-2024 Interpretation and review of laboratory results Normal [facility] Natriuretic peptide B (Bld) [Mass/Vol] 72 pg/mL 0 - 100 pg/mL [facility] Natriuretic peptide B (Bld) [Mass/Vol] 72 pg/mL Normal 0-100 [facility] Comment on above: Performed By: #### C HM7, HFP, MGO #### [facility] (DEFAULT) [address] [place] [address] CHEM 6 (LYTES, BUN CREA)on 0 02-26-2024 Anion gap [Moles/Vol] 13 mmol/L 7 - 17 mmol/L [facility] Chloride [Moles/Vol] 107 mmol/L 98 - 10 8 mmol/L [facility] CO2 [Moles/Vol] 25 mmol/L 21 - 31 mmol/L [facility] Creatinine [Mass/Vol] 1.23 mg/dL 0.70 - 1.30 mg/dL [facility] eGFR, CKD-EPI, Male 70 - PINF [facility] Comment on above: Reported eGFR is bas ed on the CKD-EPI 2020 equation using creatinine, age, and sex. Potassium [Moles/Vol] 4.2 mmol/L 3.5 - 5.0 mmol/L [facility] Sodium [Moles/Vol] 141 mmol/L 135 - 145 mmol/L [facility] Urea nitrogen [Mass/Vol] 17 mg/dL 7 - 25 mg/dL [facility] Urea nitrogen/Creatinine [Mass ratio] 14 mg/mg [facility] Anion gap [Moles/Vol] 13 mmol/L Normal 7-17 [facility] Comment on above: Performed By: #### C Tray, CHM7, HFP, IPB, MGO #### [facility] (DEFAULT) [address] [place] [address] Chloride [Moles/Vol] 107 mmol/L Normal 98-108 [facility] Comment on above: Performed By: #### C Tray, CHM7, HFP, IPB, MGO #### [facility] (DEFAULT) [address] [place] [address] CO2 [Moles/Vol] 25 mmol/L Normal 21-31 [facility] Comment on above: Performed By: #### C A, CHM7, HFP, IPB, MGO #### [facility] (DEFAULT) [address] [place] [address] Creatinine [Mass/Vol] 1.23 mg/dL Normal 0.70-1.30 [facility] Comment on above: Performed By: #### C A, CHM7, HFP, IPB, MGO #### [facility] (DEFAULT) [address] [place] [address]858 GFR/1.73 sq M.predicted among non-blacks MDRD (S/P/Bld) [Vol rate/Area] 70 mL/min/{1.73_m2} Normal >=60 [facility] Comment on above: Result Comment: Repo rted eGFR is based on the CKD-EPI 2020 equation using creatinine, age, and sex. Performed By: #### C A, CHM7, HFP, IPB, MGO #### [facility] (DEFAULT) [address] [place] [address]368 Potassium [Moles/Vol] 4.2 mmol/L Normal 3.5-5.0 [facility] Comment on above: Performed By: #### C A, CHM7, HFP, IPB, MGO #### [facility] (DEFAULT) [address] [place] [address]06 Sodium [Moles/Vol] 141 mmol/L Normal 135-145 [facility] Comment on above: Performed By: #### C A, CHM7, HFP, IPB, MGO #### [facility] (DEFAULT) [address] [place] [address] 16993 Urea nitrogen [Mass/Vol] 17 mg/dL Normal 7-25 [facility] Comment on above: Performed By: #### C A, CHM7, HFP, IPB, MGO #### [facility] (DEFAULT) [address] [place] [address]136 Urea nitrogen/Creatinine [Mass ratio] 14 mg/mg Normal [facility] Comment on above: Performed By: #### C A, CHM7, HFP, IPB, MGO #### [facility] (DEFAULT) [address] [place] [address] 17904 CBC,PLATELETSon 01-23-2024 Erythrocyte distribution width (RBC) [Ratio] 14.2 % 10.9 - 14.3 % [facility] Hematocrit (Bld) [Volume fraction] 37.0 % Low 39.6 - 48.8 % [facility] Hemoglobin (Bld) [Mass/Vol] 12.0 g/dL Low 13.4 - 16.8 g/dL [facility] Interpretation and review of laboratory results Abnormal [facility] MCH (RBC) [Entitic mass] 28.6 pg 26.1 - 33.3 pg [facility] MCHC (RBC) [Mass/Vol] 32.4 g/dL 31.9 - 36.5 g/dL [facility] MCV (RBC) [Entitic vol] 88.1 fL 79.0 - 94.5 fL [facility] Platelet mean volume (Bld) [Entitic vol] 10.4 fL 8.7 - 12.3 fL [facility] Platelets (Bld) [#/Vol] 170 10*3/uL 146 - 337 K/uL [facility] RBC (Bld) [#/Vol] 4.20 10*6/uL Low [facility] WBC (Bld) [#/Vol] 3.70 10*3/uL Low 3.73 - 10. 10 K/uL [facility] Hematocrit (Bld) [Volume fraction] 37.0 % Low 39.6-48.8 [facility] Comment on above: Performed By: #### C JASMYNE, TAVO, MGO #### [facility] (DEFAULT) [address] [place] [address] 18965 Hemoglobin (Bld) [Mass/Vol] 12.0 g/dL Low 13.4-16.8 [facility] Comment on above: Performed By: #### C HM7, HFP, MGO #### [facility] (DEFAULT) [address] [place] [address] 68673 MCV (RBC) [Entitic vol] 88.1 fL Normal 79.0-94.5 [facility] Comment on above: Performed By: #### C HM7, HFP, MGO #### [facility] (DEFAULT) [address] [place] [address] 16168 Mean Cell Hgb 28.6 pg Normal 26.1-33.3 [facility] Comment on above: Performed By: #### C HM7, HFP, MGO #### [facility] (DEFAULT) [address] [place] [address] 37530 Mean Cell Hgb Conc 32.4 g/dL Normal 31.9-36.5 [facility] Comment on above: Performed By: #### C HM7, HFP, MGO #### [facility] (DEFAULT) [address] [place] [address] 29565 Platelet mean volume (Bld) [Entitic vol] 10.4 fL Normal 8.7-12.3 [facility] Comment on above: Performed By: #### C HM7, HFP, MGO #### [facility] (DEFAULT) [address] [place] [address] 22991 Platelets (Bld) [#/Vol] 170 10*3/uL Normal 146-337 [facility] Comment on above: Performed By: #### C HM7, HFP, MGO #### [facility] (DEFAULT) [address] [place] [address] 32135 RBC (Bld) [#/Vol] 4.20 10*6/uL Low 4.38-5.83 [facility] Comment on above: Performed By: #### C HM7, HFP, MGO #### [facility] (DEFAULT) [address] [place] [address] 83648 RBC Distribution 14.2 % Normal 10.9-14.3 [facility] Comment on above: Performed By: #### C HM7, HFP, MGO #### [facility] (DEFAULT) [address] [place] [address] 43559 WBC (Bld) [#/Vol] 3.70 10*3/uL Low 3.73-10.10 [facility] Comment on above: Performed By: #### C HM7, HFP, MGO #### [facility] (DEFAULT) [address] [place] [address] CHEM 7 (LYTES,BUN,CREA,GLUC) on 01-23-2024 Anion gap [Moles/Vol] 14 mmol/L 7 - 17 mmol/L [facility] Chloride [Moles/Vol] 105 mmol/L 98 - 10 8 mmol/L [facility] CO2 [Moles/Vol] 25 mmol/L 21 - 31 mmol/L [facility] Creatinine [Mass/Vol] 1.32 mg/dL High 0.70 - 1.30 mg/dL [facility] eGFR, CKD-EPI, Male 65 - PINF [facility] Comment on above: Reported eGFR is bas ed on the CKD-EPI 2020 equation using creatinine, age, and sex. Glucose [Mass/Vol] 94 mg/dL 70 - 99 mg/dL [facility] Osmolality Calc [Osmolality] 296 [facility] Potassium [Moles/Vol] 3.8 mmol/L 3.5 - 5.0 mmol/L [facility] Sodium [Moles/Vol] 140 mmol/L 135 - 145 mmol/L [facility] Urea nitrogen [Mass/Vol] 23 mg/dL 7 - 25 mg/dL [facility] Urea nitrogen/Creatinine [Mass ratio] 17 mg/mg [facility] Anion gap [Moles/Vol] 14 mmol/L Normal 7-17 [facility] Comment on above: Performed By: #### C HM7, HFP, MGO #### [facility] (DEFAULT) [address] [place] [address] Chloride [Moles/Vol] 105 mmol/L Normal 98-108 [facility] Comment on above: Performed By: #### C HM7, HFP, MGO #### [facility] (DEFAULT) [address] [place] [address] CO2 [Moles/Vol] 25 mmol/L Normal 21-31 [facility] Comment on above: Performed By: #### C TAVO MEDLEY, MGO #### [facility] (DEFAULT) [address] [place] [address] 79654 Creatinine [Mass/Vol] 1.32 mg/dL High 0.70-1.30 [facility] Comment on above: Performed By: #### Chinedu MEDLEY, TAVO, MGO #### [facility] (DEFAULT) [address] [place] [address] 75959 GFR/1.73 sq M.predicted among non-blacks MDRD (S/P/Bld) [Vol rate/Area] 65 mL/min/{1.73_m2} Normal >=60 [facility] Comment on above: Result Comment: Repo rted eGFR is based on the CKD-EPI 2020 equation using creatinine, age, and sex. Performed By: #### C JASMYNE, TAVO, MGO #### [facility] (DEFAULT) [address] [place] [address] 47405 Glucose [Mass/Vol] 94 mg/dL Normal 70-99 [facility] Comment on above: Performed By: #### Chinedu MEDLEY, HFP, MGO #### [facility] (DEFAULT) [address] [place] [address] 76094 Osmolality [Osmolality] 296 mosm/kg Normal 278-305 [facility] Comment on above: Performed By: #### Chinedu MEDLEY, HFP, MGO #### [facility] (DEFAULT) [address] [place] [address] 33760 Potassium [Moles/Vol] 3.8 mmol/L Normal 3.5-5.0 [facility] Comment on above: Performed By: #### Chinedu HMJessica, HFP, MGO #### [facility] (DEFAULT) [address] [place] [address] 64642 Sodium [Moles/Vol] 140 mmol/L Normal 135-145 [facility] Comment on above: Performed By: #### C HM7, HFP, MGO #### [facility] (DEFAULT) [address] [place] [address] Urea nitrogen [Mass/Vol] 23 mg/dL Normal 7-25 [facility] Comment on above: Performed By: #### C HM7, HFP, MGO #### [facility] (DEFAULT) [address] [place] [address] Urea nitrogen/Creatinine [Mass ratio] 17 mg/mg Normal [facility] Comment on above: Performed By: #### C HM7, HFP, MGO #### [facility] (DEFAULT) [address] [place] [address] GLUCOSE POCon 01-23-2024 Glucose [Mass/Vol] 88 mg/dL 70 - 99 mg/dL [facility] POC Sample Type CAPBL [facility] Test performed at address of the patient encounter. [facility] Glucose [Mass/Vol] 191 mg/dL High 70 - 99 mg/dL [facility] Interpretation and review of laboratory results Abnormal [facility] POC Sample Type CAPBL [facility] Test performed at address of the patient encounter. [facility] HEPATIC FUNCTION PANELon Albumin [Mass/Vol] 3.9 g/dL 3.5 - 5.0 g/dL [facility] ALP [Catalytic activity/Vol] 83 U/L 32 - 126 U/L [facility] ALT [Catalytic activity/Vol] 9 U/L Low 10 - 52 U/L [facility] AST [Catalytic activity/Vol] 17 U/L 10 - 39 U/L [facility] Bilirubin [Mass/Vol] 1.6 mg/dL High NINF - 1.5 mg/dL [facility] Bilirubin.direct [Mass/Vol] 0.4 mg/dL High NINF - 0.3 mg/dL [facility] Protein [Mass/Vol] 6.6 g/dL 6.4 - 8.3 g/dL [facility] Albumin [Mass/Vol] 3.9 g/dL Normal 3.5-5.0 [facility] Comment on above: Performed By: #### C HM7, HFP, MGO #### [facility] (DEFAULT) [address] [place] [address] 64660 ALP [Catalytic activity/Vol] 83 U/L Normal 32-126 [facility] Comment on above: Performed By: #### C HM7, HFP, MGO #### [facility] (DEFAULT) [address] [place] [address] 62179 ALT [Catalytic activity/Vol] 9 U/L Low 10-52 [facility] Comment on above: Performed By: #### C HM7, HFP, MGO #### [facility] (DEFAULT) [address] [place] [address] 09804 AST [Catalytic activity/Vol] 17 U/L Normal 10-39 [facility] Comment on above: Performed By: #### C HM7, HFP, MGO #### [facility] (DEFAULT) [address] [place] [address] 51334 Bilirubin [Mass/Vol] 1.6 mg/dL High <1.5 [facility] Comment on above: Performed By: #### C HM7, HFP, MGO #### [facility] (DEFAULT) [address] [place] [address] 61376 Bilirubin.indirect [Mass/Vol] 0.4 mg/dL High <0.3 [facility] Comment on above: Performed By: #### C HM7, HFP, MGO #### [facility] (DEFAULT) [address] [place] [address] 19868 Protein [Mass/Vol] 6.6 g/dL Normal 6.4-8.3 [facility] Comment on above: Performed By: #### C HM7, HFP, MGO #### [facility] (DEFAULT) [address] [place] [address] ITRACONAZOLE LEVELon 024 Hydroxyitraconazole [Mass/Vol] 7.6 mcg/mL [facility] Comment on above: REFERENCE VALUE No therapeutic range established; activity and serum concentration are similar to parent drug. ADDITIONAL INFORMATION This test was developed and its performance characteristics determined by [facility] in a manner consistent with CLIA requirements. This test has not been cleared or approved by the U.S. Food and Drug Administration. Test Performed by: [facility] [place] [address] Cotton Buyer: Rosendo Bose M.D. Ph.D.; CLIA# [id number] Itraconazole [Mass/Vol] 6.0 mcg/mL [facility] Comment on above: REFERENCE VALUE >0.5 (localized infection), >1.0 (systemic infection) [facility] MAGNESIUMon 01-23-2024 Interpretation and review of laboratory results Normal [facility] Magnesium [Mass/Vol] 1.8 mg/dL 1.6 - 2 .6 mg/dL [facility] Magnesium [Mass/Vol] 1.8 mg/dL Normal 1.6-2.6 [facility] Comment on above: Performed By: #### C HM7, [facility], MGO #### [facility] (DEFAULT) [address] [place] [address] No Panel Informationon 01-23 Interpretation and review of laboratory results Abnormal [facility] TACROLIMUS LEVEL, TROUGH (WI E DRUG LEVEL)on 01-23-2024 Interpretation and review of laboratory results Normal [facility] Tacrolimus (Bld) [Mass/Vol] 7.0 ng/mL Bone Marrow Transplant: 4.0-12.0, Therapeutic: 5.0-15.0 [facility] Method performed is a chemiluminescent microparticle immunoasssay on the [employer] i2000. The range is based on experience at [facility] and users should be aware that target concentrations vary widely depending on concomitant therapy, time post-transplant, and desired degree of immunosuppression. [facility] Tacrolimus, Trough 7.0 ng/mL Normal Bone Susana ow Transplant: 4.0-12.0, Therapeutic: 5.0-15.0 [facility] Comment on above: Order Comment: Pleas e draw at specified interval PRIOR to dose. Do not hold dose to wait for level. Specimens batched twice per day, (M-F) and once per day weekendsMethod performed is a chemiluminescent microparticle immunoasssay on the [employer]er i2000.The range is based on experience at [facility] and users should be aware that target concentrations vary widely depending on concomitant therapy, time post-transplant, and desired degree of immunosuppression. Performed By: #### C A, CHM7, HFP, IPB, MGO #### [facility] (DEFAULT) [address] [place] [address] CARDIAC RHYTHM (SCANNED)on 0 01-22-2024 [facility] CBC,PLATELETSon 01-22-2024 Erythrocyte distribution width (RBC) [Ratio] 14.1 % 10.9 - 14.3 % [facility] Hematocrit (Bld) [Volume fraction] 41.5 % 39.6 - 48.8 % [facility] Hemoglobin (Bld) [Mass/Vol] 13.3 g/dL Low 13.4 - 16.8 g/dL [facility] Interpretation and review of laboratory results Abnormal [facility] MCH (RBC) [Entitic mass] 27.8 pg 26.1 - 33.3 pg [facility] MCHC (RBC) [Mass/Vol] 32.0 g/dL 31.9 - 36.5 g/dL [facility] MCV (RBC) [Entitic vol] 86.8 fL 79.0 - 94.5 fL [facility] Platelet mean volume (Bld) [Entitic vol] 10.5 fL 8.7 - 12.3 fL [facility] Platelets (Bld) [#/Vol] 186 10*3/uL 146 - 337 K/uL [facility] RBC (Bld) [#/Vol] 4.78 10*6/uL [facility] WBC (Bld) [#/Vol] 3.74 10*3/uL 3.73 - 10. 10 K/uL [facility] Hematocrit (Bld) [Volume fraction] 41.5 % Normal 39.6-48.8 [facility] Comment on above: Performed By: #### Chinedu HM7, HFP, MGO #### [facility] (DEFAULT) [address] [address] Hemoglobin (Bld) [Mass/Vol] 13.3 g/dL Low 13.4-16.8 [facility] Comment on above: Performed By: #### Chinedu HM7, HFP, MGO #### [facility] (DEFAULT) [address] [address] MCV (RBC) [Entitic vol] 86.8 fL Normal 79.0-94.5 [facility] Comment on above: Performed By: #### Chinedu HM7, HFP, MGO #### [facility] (DEFAULT) [address] [place] [address] Mean Cell Hgb 27.8 pg Normal 26.1-33.3 [facility] Comment on above: Performed By: #### Chinedu HM7, HFP, MGO #### [facility] (DEFAULT) [address] [address] Mean Cell Hgb Conc 32.0 g/dL Normal 31.9-36.5 [facility] Comment on above: Performed By: #### Chinedu HM7, HFP, MGO #### [facility] (DEFAULT) [address] [place] [address] Platelet mean volume (Bld) [Entitic vol] 10.5 fL Normal 8.7-12.3 [facility] Comment on above: Performed By: #### Chinedu HM7, HFP, MGO #### [facility] (DEFAULT) [address] [place] [address] Platelets (Bld) [#/Vol] 186 10*3/uL Normal 146-337 [facility] Comment on above: Performed By: #### Chinedu HM7, HFP, MGO #### [facility] (DEFAULT) [address] [place] [address] RBC (Bld) [#/Vol] 4.78 10*6/uL Normal 4.38-5.83 [facility] Comment on above: Performed By: #### Chinedu HM7, HFP, MGO #### [facility] (DEFAULT) [address] [place] [address] RBC Distribution 14.1 % Normal 10.9-14.3 [facility] Comment on above: Performed By: #### Chinedu HM7, HFP, MGO #### [facility] (DEFAULT) [address] [place] [address] WBC (Bld) [#/Vol] 3.74 10*3/uL Normal 3.73-10.10 [facility] Comment on above: Performed By: #### Chinedu HM7, HFP, MGO #### [facility] (DEFAULT) [address] [place] [address] CHEM 7 (LYTES,BUN,CREA,GLUC) on 01-22-2024 Anion gap [Moles/Vol] 13 mmol/L 7 - 17 mmol/L [facility] Chloride [Moles/Vol] 109 mmol/L High 98 - 10 8 mmol/L [facility] CO2 [Moles/Vol] 23 mmol/L 21 - 31 mmol/L [facility] Creatinine [Mass/Vol] 1.10 mg/dL 0.70 - 1.30 mg/dL [facility] eGFR, CKD-EPI, Male 81 - PINF [facility] Comment on above: Reported eGFR is bas ed on the CKD-EPI 2020 equation using creatinine, age, and sex. Glucose [Mass/Vol] 84 mg/dL 70 - 99 mg/dL [facility] Interpretation and review of laboratory results Abnormal [facility] Osmolality Calc [Osmolality] 295 [facility] Potassium [Moles/Vol] 4.0 mmol/L 3.5 - 5.0 mmol/L [facility] Sodium [Moles/Vol] 141 mmol/L 135 - 145 mmol/L [facility] Urea nitrogen [Mass/Vol] 16 mg/dL 7 - 25 mg/dL [facility] Urea nitrogen/Creatinine [Mass ratio] 15 mg/mg [facility] Anion gap [Moles/Vol] 13 mmol/L Normal 7-17 [facility] Comment on above: Performed By: #### C HM7, HFP, MGO #### [facility] (DEFAULT) [address] [place] [address] Chloride [Moles/Vol] 109 mmol/L High 98-108 [facility] Comment on above: Performed By: #### C HM7, HFP, MGO #### [facility] (DEFAULT) [address] [place] [address] CO2 [Moles/Vol] 23 mmol/L Normal 21-31 [facility] Comment on above: Performed By: #### C HM7, HFP, MGO #### [facility] (DEFAULT) [address] [place] [address] Creatinine [Mass/Vol] 1.10 mg/dL Normal 0.70-1.30 [facility] Comment on above: Performed By: #### C HM7, HFP, MGO #### [facility] (DEFAULT) [address] [place] [address] GFR/1.73 sq M.predicted among non-blacks MDRD (S/P/Bld) [Vol rate/Area] 81 mL/min/{1.73_m2} Normal >=60 [facility] Comment on above: Result Comment: Repo rted eGFR is based on the CKD-EPI 2020 equation using creatinine, age, and sex. Performed By: #### C HM7, HFP, MGO #### [facility] (DEFAULT) [address] [place] [address] Glucose [Mass/Vol] 84 mg/dL Normal 70-99 [facility] Comment on above: Performed By: #### C HM7, HFP, MGO #### [facility] (DEFAULT) [address] [place] [address] Osmolality [Osmolality] 295 mosm/kg Normal 278-305 [facility] Comment on above: Performed By: #### C HM7, HFP, MGO #### [facility] (DEFAULT) [address] [place] [address] Potassium [Moles/Vol] 4.0 mmol/L Normal 3.5-5.0 [facility] Comment on above: Performed By: #### C HM7, HFP, MGO #### [facility] (DEFAULT) [address] [place] [address] Sodium [Moles/Vol] 141 mmol/L Normal 135-145 [facility] Comment on above: Performed By: #### C HM7, HFP, MGO #### [facility] (DEFAULT) [address] [place] [address] Urea nitrogen [Mass/Vol] 16 mg/dL Normal 7-25 [facility] Comment on above: Performed By: #### C HM7, HFP, MGO #### [facility] (DEFAULT) [address] [place] [address] Urea nitrogen/Creatinine [Mass ratio] 15 mg/mg Normal [facility] Comment on above: Performed By: #### C HM7, HFP, MGO #### [facility] (DEFAULT) [address] [place] [address] MAGNESIUMon 01-22-2024 Interpretation and review of laboratory results Normal [facility] Magnesium [Mass/Vol] 2.0 mg/dL 1.6 - 2 .6 mg/dL [facility] Magnesium [Mass/Vol] 2.0 mg/dL Normal 1.6-2.6 [facility] Comment on above: Performed By: #### M [facility] #### [facility] (DEFAULT) [address] [place] [address] No Panel Informationon 01-22 [facility] PT,INR,PTTon 01-22-2024 aPTT Coag (PPP) [Time] 29.2 s [facility] INR Coag (Bld) [Relative time] 1.1 {INR} 0.9 - 1.1 [facility] Interpretation and review of laboratory results Abnormal [facility] PT Coag (PPP) [Time] 14.3 s High [facility] aPTT Coag (Bld) [Time] 29.2 s Normal 24.0-34.3 [facility] Comment on above: Performed By: #### P TPTT #### [facility] (DEFAULT) [address] [address] INR Coag (PPP) [Relative time] 1.1 {INR} Normal 0.9-1.1 [facility] Comment on above: Performed By: #### P TPTT #### [facility] (DEFAULT) [address] [place] [address] PT Coag (PPP) [Time] 14.3 s High 11.9-14.2 [facility] Comment on above: Performed By: #### P TPTT #### [facility] (DEFAULT) [address] [place] [address] TACROLIMUS LEVEL, TROUGH (WI E DRUG LEVEL)Ordered By: Sheree Jensen on 01-22-2024 Interpretation and review of laboratory results Normal [facility] Tacrolimus (Bld) [Mass/Vol] 7.9 ng/mL Bone Marrow Transplant: 4.0-12.0, Therapeutic: 5.0-15.0 [facility] Method performed is a chemiluminescent microparticle immunoasssay on the [employer] i2000. The range is based on experience at [facility] and users should be aware that target concentrations vary widely depending on concomitant therapy, time post-transplant, and desired degree of immunosuppression. [facility] TACROLIMUS LEVEL, TROUGH (WI E DRUG LEVEL)on 01-22-2024 Tacrolimus, Trough 7.9 ng/mL Normal Bone Susana ow Transplant: 4.0-12.0, Therapeutic: 5.0-15.0 [facility] Comment on above: Order Comment: Pleas e draw at specified interval PRIOR to dose. Do not hold dose to wait for level. Specimens batched twice per day, (M-F) and once per day weekendsMethod performed is a chemiluminescent microparticle immunoasssay on the [employer] i2000.The range is based on experience at [facility] and users should be aware that target concentrations vary widely depending on concomitant therapy, time post-transplant, and desired degree of immunosuppression. Performed By: #### C A, CHM7, HFP, IPB, MGO #### [facility] (DEFAULT) [address] [place] [address] TYPE AND SCREENon 01-22-2024 ABO/RH(D) TYPE Positive [facility] ABO/RH(D) TYPE Positive Normal [facility] Comment on above: Performed By: #### C HM7, HFP, MGO #### [facility] (DEFAULT) [address] [address] [place] Unspecified body regionOr dered By: Unassigned Pacs on 01-22-2024 [facility] Work Phone: [place] Unspecified body regionon 01-22-2024 Radiology Study observation (narrative) [facility] CBC,PLATELETSon 01-21-2024 Erythrocyte distribution width (RBC) [Ratio] 14.0 % 10.9 - 14.3 % [facility] Hematocrit (Bld) [Volume fraction] 39.4 % Low 39.6 - 48.8 % [facility] Hemoglobin (Bld) [Mass/Vol] 12.7 g/dL Low 13.4 - 16.8 g/dL [facility] Interpretation and review of laboratory results Abnormal [facility] MCH (RBC) [Entitic mass] 28.0 pg 26.1 - 33.3 pg [facility] MCHC (RBC) [Mass/Vol] 32.2 g/dL 31.9 - 36.5 g/dL [facility] MCV (RBC) [Entitic vol] 87.0 fL 79.0 - 94.5 fL [facility] Platelet mean volume (Bld) [Entitic vol] 10.2 fL 8.7 - 12.3 fL [facility] Platelets (Bld) [#/Vol] 157 10*3/uL 146 - 337 K/uL [facility] RBC (Bld) [#/Vol] 4.53 10*6/uL [facility] WBC (Bld) [#/Vol] 3.42 10*3/uL Low 3.73 - 10. 10 K/uL [facility] Hematocrit (Bld) [Volume fraction] 39.4 % Low 39.6-48.8 [facility] Comment on above: Performed By: #### C Tray, CHM7, HFP, IPB, MGO #### [facility] (DEFAULT) [address] [address] Hemoglobin (Bld) [Mass/Vol] 12.7 g/dL Low 13.4-16.8 [facility] Comment on above: Performed By: #### C Tray, CHM7, HFP, IPB, MGO #### [facility] (DEFAULT) [address] [place] [address] MCV (RBC) [Entitic vol] 87.0 fL Normal 79.0-94.5 [facility] Comment on above: Performed By: #### C A, CHM7, HFP, IPB, MGO #### [facility] (DEFAULT) [address] [place] [address] Mean Cell Hgb 28.0 pg Normal 26.1-33.3 [facility] Comment on above: Performed By: #### C A, CHM7, HFP, IPB, MGO #### [facility] (DEFAULT) [address] [place] [address] Mean Cell Hgb Conc 32.2 g/dL Normal 31.9-36.5 [facility] Comment on above: Performed By: #### C A, CHM7, HFP, IPB, MGO #### [facility] (DEFAULT) [address] [place] [address] Platelet mean volume (Bld) [Entitic vol] 10.2 fL Normal 8.7-12.3 [facility] Comment on above: Performed By: #### C A, CHM7, HFP, IPB, MGO #### [facility] (DEFAULT) [address] [place] [address] Platelets (Bld) [#/Vol] 157 10*3/uL Normal 146-337 [facility] Comment on above: Performed By: #### C A, CHM7, HFP, IPB, MGO #### [facility] (DEFAULT) [address] [place] [address] RBC (Bld) [#/Vol] 4.53 10*6/uL Normal 4.38-5.83 [facility] Comment on above: Performed By: #### C A, CHM7, HFP, IPB, MGO #### [facility] (DEFAULT) [address] [place] [address] RBC Distribution 14.0 % Normal 10.9-14.3 [facility] Comment on above: Performed By: #### C A, CHM7, HFP, IPB, MGO #### [facility] (DEFAULT) [address] [place] [address] WBC (Bld) [#/Vol] 3.42 10*3/uL Low 3.73-10.10 [facility] Comment on above: Performed By: #### C A, CHM7, HFP, IPB, MGO #### [facility] (DEFAULT) [address] [place] [address] CHEM 7 (LYTES,BUN,CREA,GLUC) on 01-21-2024 Anion gap [Moles/Vol] 12 mmol/L 7 - 17 mmol/L [facility] Chloride [Moles/Vol] 107 mmol/L 98 - 10 8 mmol/L [facility] CO2 [Moles/Vol] 26 mmol/L 21 - 31 mmol/L [facility] Creatinine [Mass/Vol] 1.11 mg/dL 0.70 - 1.30 mg/dL [facility] eGFR, CKD-EPI, Male 80 - PINF [facility] Comment on above: Reported eGFR is bas ed on the CKD-EPI 2020 equation using creatinine, age, and sex. Glucose [Mass/Vol] 93 mg/dL 70 - 99 mg/dL [facility] Osmolality Calc [Osmolality] 295 [facility] Potassium [Moles/Vol] 3.9 mmol/L 3.5 - 5.0 mmol/L [facility] Sodium [Moles/Vol] 141 mmol/L 135 - 145 mmol/L [facility] Urea nitrogen [Mass/Vol] 15 mg/dL 7 - 25 mg/dL [facility] Urea nitrogen/Creatinine [Mass ratio] 14 mg/mg [facility] Anion gap [Moles/Vol] 12 mmol/L Normal 7-17 [facility] Comment on above: Performed By: #### C HM7, HFP, MGO #### [facility] (DEFAULT) [address] [place] [address] Chloride [Moles/Vol] 107 mmol/L Normal 98-108 [facility] Comment on above: Performed By: #### C HM7, HFP, MGO #### [facility] (DEFAULT) [address] [place] [address] CO2 [Moles/Vol] 26 mmol/L Normal 21-31 [facility] Comment on above: Performed By: #### C HM7, HFP, MGO #### [facility] (DEFAULT) [address] [place] [address] Creatinine [Mass/Vol] 1.11 mg/dL Normal 0.70-1.30 [facility] Comment on above: Performed By: #### C HM7, HFP, MGO #### [facility] (DEFAULT) [address] [place] [address] GFR/1.73 sq M.predicted among non-blacks MDRD (S/P/Bld) [Vol rate/Area] 80 mL/min/{1.73_m2} Normal >=60 [facility] Comment on above: Result Comment: Repo rted eGFR is based on the CKD-EPI 2020 equation using creatinine, age, and sex. Performed By: #### C HM7, HFP, MGO #### [facility] (DEFAULT) [address] [place] [address] Glucose [Mass/Vol] 93 mg/dL Normal 70-99 [facility] Comment on above: Performed By: #### Chinedu HM7, HFP, MGO #### [facility] (DEFAULT) [address] [place] [address] Osmolality [Osmolality] 295 mosm/kg Normal 278-305 [facility] Comment on above: Performed By: #### C HM7, HFP, MGO #### [facility] (DEFAULT) [address] [place] [address] Potassium [Moles/Vol] 3.9 mmol/L Normal 3.5-5.0 [facility] Comment on above: Performed By: #### C HM7, HFP, MGO #### [facility] (DEFAULT) [address] [place] [address] Sodium [Moles/Vol] 141 mmol/L Normal 135-145 [facility] Comment on above: Performed By: #### C HM7, HFP, MGO #### [facility] (DEFAULT) [address] [place] [address] Urea nitrogen [Mass/Vol] 15 mg/dL Normal 7-25 [facility] Comment on above: Performed By: #### C HM7, HFP, MGO #### [facility] (DEFAULT) [address] [place] [address] Urea nitrogen/Creatinine [Mass ratio] 14 mg/mg Normal [facility] Comment on above: Performed By: #### C HM7, HFP, MGO #### [facility] (DEFAULT) [address] [place] [address] Cardiac catheterization stud yOrdered By: Kelvin Donohue on 01-21-2024 Body surface area Derived from formula 2.08 m2 [facility] Work Phone: [facility] Work Phone: Cardiac catheterization stud yon [...] with fistula occlusion Kelvin Donohue MD, MPH Nutrition Services Aide of Internal Medicine. Section of Advanced Heart Failure and Transplantation Division of Cardiovascular Diseases [facility] [email or web address] INVASIVE CARDIOVASCULAR PROC Ricki 01-21-2024 INVASIVE [...] with fistula occlusion Kelvin Donohue MD, MPH Nutrition Services Aide of Internal Medicine. Section of Advanced Heart Failure and Transplantation Division of Cardiovascular Diseases [facility] [email or web address] Table formatting from the original result was not included. Images from the original result were not included. George Styles Invasive Cardiology Cath Procedure Ordering Physician: KELVIN PACHECO Order #: [id number] Study Date: 01/20/2024 Patient Information Name MRN Description George Styles [id number] 53 y.o. male Location Name Address [facility] [address] [facility] [address] Physicians Panel Physicians Referring Physician Case Authorizing [...] with fistula occlusion Kelvin Donohue MD, MPH Nutrition Services Aide of Internal Medicine. Section of Advanced Heart Failure and Transplantation Division of Cardiovascular Diseases [facility] [email or web address] Medical [email or web address] Diagnosis Date Comment Source Acute renal failure CAD (coronary artery disease) Cirrhosis Dialysis patient T, Th, Sa- Started 06/01/2018 End stage renal disease 06/01/2018 Essential hypertension, benign Hepatic encephalopathy History of blood transfusion Liver cirrhosis Procedure The risks and alternatives of the procedure and sedation were explained. Informed consent was obtained. The patient was brought to the cath lab nurse and placed on the table. The planned puncture sites were prepped and draped in the usual sterile fashion. Fluoro Dose Fluoro Dose: 0.2 Gy-cm^2 Complications Complications documented before study signed (01/21/2024 4:05 PM) No complications were associated with this study. Documented by LU Costello - 01/20/2024 11:09 AM Cardiac Computer Designer Attending Physician Statement and Signature I have [...] Blood O (more content not included)... Normal [facility] MAGNESIUMon 01-21-2024 Interpretation and review of laboratory results Abnormal [facility] Magnesium [Mass/Vol] 1.5 mg/dL Low 1.6 - 2 .6 mg/dL [facility] Magnesium [Mass/Vol] 1.5 mg/dL Low 1.6-2.6 [facility] Comment on above: Performed By: #### C HM7, HFP, MGO #### [facility] (DEFAULT) [address] [place] [address] No Panel Informationon 01-21 [facility] TACROLIMUS LEVEL, TROUGH (WI E DRUG LEVEL)on 01-21-2024 Interpretation and review of laboratory results Normal [facility] Tacrolimus (Bld) [Mass/Vol] 7.2 ng/mL Bone Marrow Transplant: 4.0-12.0, Therapeutic: 5.0-15.0 [facility] Method performed is a chemiluminescent microparticle immunoasssay on the [employer] i2000. The range is based on experience at [facility] and users should be aware that target concentrations vary widely depending on concomitant therapy, time post-transplant, and desired degree of immunosuppression. [facility] Tacrolimus, Trough 7.2 ng/mL Normal Bone Susana ow Transplant: 4.0-12.0, Therapeutic: 5.0-15.0 [facility] Comment on above: Order Comment: Pleas e draw at specified interval PRIOR to dose. Do not hold dose to wait for level. Specimens batched twice per day, (M-F) and once per day weekendsMethod performed is a chemiluminescent microparticle immunoasssay on the [employer] i2000.The range is based on experience at [facility] and users should be aware that target concentrations vary widely depending on concomitant therapy, time post-transplant, and desired degree of immunosuppression. Performed By: #### C A, CHM7, HFP, IPB, MGO #### [facility] (DEFAULT) [address] [place] [address] CBC,PLATELETSon 01-20-2024 Erythrocyte distribution width (RBC) [Ratio] 13.8 % 10.9 - 14.3 % [facility] Hematocrit (Bld) [Volume fraction] 38.9 % Low 39.6 - 48.8 % [facility] Hemoglobin (Bld) [Mass/Vol] 12.5 g/dL Low 13.4 - 16.8 g/dL [facility] Interpretation and review of laboratory results Abnormal [facility] MCH (RBC) [Entitic mass] 28.0 pg 26.1 - 33.3 pg [facility] MCHC (RBC) [Mass/Vol] 32.1 g/dL 31.9 - 36.5 g/dL [facility] MCV (RBC) [Entitic vol] 87.2 fL 79.0 - 94.5 fL [facility] Platelet mean volume (Bld) [Entitic vol] 10.2 fL 8.7 - 12.3 fL [facility] Platelets (Bld) [#/Vol] 166 10*3/uL 146 - 337 K/uL [facility] RBC (Bld) [#/Vol] 4.46 10*6/uL [facility] WBC (Bld) [#/Vol] 3.79 10*3/uL 3.73 - 10. 10 K/uL [facility] Hematocrit (Bld) [Volume fraction] 38.9 % Low 39.6-48.8 [facility] Comment on above: Performed By: #### C Tray, CHM7, HFP, IPB, MGO #### [facility] (DEFAULT) [address] [place] [address] Hemoglobin (Bld) [Mass/Vol] 12.5 g/dL Low 13.4-16.8 [facility] Comment on above: Performed By: #### Chinedu Feliz, CHM7, HFP, IPB, MGO #### [facility] (DEFAULT) [address] [place] [address] 18649 MCV (RBC) [Entitic vol] 87.2 fL Normal 79.0-94.5 [facility] Comment on above: Performed By: #### C Tray, CHM7, HFP, IPB, MGO #### [facility] (DEFAULT) [address] [place] [address] 52000 Mean Cell Hgb 28.0 pg Normal 26.1-33.3 [facility] Comment on above: Performed By: #### C A, CHM7, HFP, IPB, MGO #### [facility] (DEFAULT) [address] [place] [address]3638 Mean Cell Hgb Conc 32.1 g/dL Normal 31.9-36.5 [facility] Comment on above: Performed By: #### C A, CHM7, HFP, IPB, MGO #### [facility] (DEFAULT) [address] [place] [address] Platelet mean volume (Bld) [Entitic vol] 10.2 fL Normal 8.7-12.3 [facility] Comment on above: Performed By: #### C A, CHM7, HFP, IPB, MGO #### [facility] (DEFAULT) [address] [place] [address] 53796 Platelets (Bld) [#/Vol] 166 10*3/uL Normal 146-337 [facility] Comment on above: Performed By: #### C A, CHM7, HFP, IPB, MGO #### [facility] (DEFAULT) [address] [place] [address] 80490 RBC (Bld) [#/Vol] 4.46 10*6/uL Normal 4.38-5.83 [facility] Comment on above: Performed By: #### C A, CHM7, HFP, IPB, MGO #### [facility] (DEFAULT) [address] [place] [address] 52569 RBC Distribution 13.8 % Normal 10.9-14.3 [facility] Comment on above: Performed By: #### C A, CHM7, HFP, IPB, MGO #### [facility] (DEFAULT) [address] [place] [address] 72986 WBC (Bld) [#/Vol] 3.79 10*3/uL Normal 3.73-10.10 [facility] Comment on above: Performed By: #### C A, CHM7, HFP, IPB, MGO #### [facility] (DEFAULT) [address] [place] [address] 69938 CHEM 7 (LYTES,BUN,CREA,GLUC) on 01-20-2024 Anion gap [Moles/Vol] 12 mmol/L 7 - 17 mmol/L [facility] Chloride [Moles/Vol] 105 mmol/L 98 - 10 8 mmol/L [facility] CO2 [Moles/Vol] 28 mmol/L 21 - 31 mmol/L [facility] Creatinine [Mass/Vol] 1.12 mg/dL 0.70 - 1.30 mg/dL [facility] eGFR, CKD-EPI, Male 80 - PINF [facility] Comment on above: Reported eGFR is bas ed on the CKD-EPI 2020 equation using creatinine, age, and sex. Glucose [Mass/Vol] 88 mg/dL 70 - 99 mg/dL [facility] Osmolality Calc [Osmolality] 294 [facility] Potassium [Moles/Vol] 3.8 mmol/L 3.5 - 5.0 mmol/L [facility] Sodium [Moles/Vol] 141 mmol/L 135 - 145 mmol/L [facility] Urea nitrogen [Mass/Vol] 15 mg/dL 7 - 25 mg/dL [facility] Urea nitrogen/Creatinine [Mass ratio] 13 mg/mg [facility] Anion gap [Moles/Vol] 12 mmol/L Normal 7-17 [facility] Comment on above: Performed By: #### C HM7, HFP, MGO #### [facility] (DEFAULT) [address] [address] Chloride [Moles/Vol] 105 mmol/L Normal 98-108 [facility] Comment on above: Performed By: #### C HM7, HFP, MGO #### [facility] (DEFAULT) [address] [place] [address] 88448 CO2 [Moles/Vol] 28 mmol/L Normal 21-31 [facility] Comment on above: Performed By: #### Chinedu HM7, HFP, MGO #### [facility] (DEFAULT) [address] [place] [address] 93732 Creatinine [Mass/Vol] 1.12 mg/dL Normal 0.70-1.30 [facility] Comment on above: Performed By: #### Chinedu HM7, HFP, MGO #### [facility] (DEFAULT) [address] [address] GFR/1.73 sq M.predicted among non-blacks MDRD (S/P/Bld) [Vol rate/Area] 79 mL/min/{1.73_m2} Normal >=60 [facility] Comment on above: Result Comment: Repo rted eGFR is based on the CKD-EPI 2020 equation using creatinine, age, and sex. Performed By: #### C HM7, HFP, MGO #### [facility] (DEFAULT) [address] [place] [address] 01296 Glucose [Mass/Vol] 88 mg/dL Normal 70-99 [facility] Comment on above: Performed By: #### C HM7, HFP, MGO #### [facility] (DEFAULT) [address] [place] [address] 99510 Osmolality [Osmolality] 294 mosm/kg Normal 278-305 [facility] Comment on above: Performed By: #### C HM7, HFP, MGO #### [facility] (DEFAULT) [address] [place] [address] 21887 Potassium [Moles/Vol] 3.8 mmol/L Normal 3.5-5.0 [facility] Comment on above: Performed By: #### C HM7, HFP, MGO #### [facility] (DEFAULT) [address] [place] [address] 17618 Sodium [Moles/Vol] 141 mmol/L Normal 135-145 [facility] Comment on above: Performed By: #### C HM7, HFP, MGO #### [facility] (DEFAULT) [address] [place] [address] 86967 Urea nitrogen [Mass/Vol] 15 mg/dL Normal 7-25 [facility] Comment on above: Performed By: #### C HM7, HFP, MGO #### [facility] (DEFAULT) [address] [place] [address] 11123 Urea nitrogen/Creatinine [Mass ratio] 13 mg/mg Normal [facility] Comment on above: Performed By: #### C HM7, HFP, MGO #### [facility] (DEFAULT) [address] [place] [address] 73666 Cardiac catheterization stud yon 01-20-2024 [facility] Radiology Study observation (narrative) [facility] Radiology Study observation (narrative) [facility] EBV BY PCR, QUANTITATIVE,BLO ODOrdered By: Charlotte Jensen on 01-20-2024 EBV DNA ESTELITA+probe (Unsp spec) [#/Vol] NINF [facility] Interpretation and review of laboratory results Normal [facility] This test was performed using a real time PCR assay. The dynamic range for this assay is 1000-5,000,000 IU/mL. A result <1000 IU/mL does not rule out the presence of EBV DNA in quantities below the sensitivity of this assay. This test was developed and its performance characteristics determined by The [facility] at [facility]. It has not been cleared or approved by the FDA. The laboratory is regulated under CLIA as qualified to perform high-complexity testing. This test is used for clinical purposes. It should not be regarded as investigational or for research. [facility] HEPATIC FUNCTION PANELon Albumin [Mass/Vol] 3.7 g/dL 3.5 - 5.0 g/dL [facility] ALP [Catalytic activity/Vol] 73 U/L 32 - 126 U/L [facility] ALT [Catalytic activity/Vol] 12 U/L 10 - 52 U/L [facility] AST [Catalytic activity/Vol] 19 U/L 10 - 39 U/L [facility] Bilirubin [Mass/Vol] 2.1 mg/dL High [facility] - 1.5 mg/dL [facility] Bilirubin.direct [Mass/Vol] 0.5 mg/dL High NINF - 0.3 mg/dL [facility] Interpretation and review of laboratory results Abnormal [facility] Protein [Mass/Vol] 6.1 g/dL Low 6.4 - 8.3 g/dL [facility] Albumin [Mass/Vol] 3.7 g/dL Normal 3.5-5.0 [facility] Comment on above: Performed By: #### C HM7, HFP, MGO #### [facility] (DEFAULT) [address] [place] [address] 95416 ALP [Catalytic activity/Vol] 73 U/L Normal 32-126 [facility] Comment on above: Performed By: #### C HM7, HFP, MGO #### [facility] (DEFAULT) [address] [place] [address] 99191 ALT [Catalytic activity/Vol] 12 U/L Normal 10-52 [facility] Comment on above: Performed By: #### C HM7, HFP, MGO #### [facility] (DEFAULT) [address] [place] [address] 30778 AST [Catalytic activity/Vol] 19 U/L Normal 10-39 [facility] Comment on above: Performed By: #### Chinedu HM7, HFP, MGO #### [facility] (DEFAULT) [address] [place] [address] 87543 Bilirubin [Mass/Vol] 2.1 mg/dL High <1.5 [facility] Comment on above: Performed By: #### C HM7, HFP, MGO #### [facility] (DEFAULT) [address] [place] [address] 60731 Bilirubin.indirect [Mass/Vol] 0.5 mg/dL High <0.3 [facility] Comment on above: Performed By: #### Chinedu HM7, HFP, MGO #### [facility] (DEFAULT) [address] [place] [address] 54041 Protein [Mass/Vol] 6.1 g/dL Low 6.4-8.3 [facility] Comment on above: Performed By: #### C HM7, HFP, MGO #### [facility] (DEFAULT) [address] [place] [address] 92990 ITRACONAZOLE LEVELon 01-20- 024 Hydroxyitraconazole 7.6 mcg/mL Normal [facility] Comment on above: Order Comment: Pleas e draw level at specified interval PRIOR to dose. Result Comment: REFERENCE VALUE No therapeutic range established; activity and serum concentration are similar to parent drug. ADDITIONAL INFORMATION This test was developed and its performance characteristics determined by [facility] in a manner consistent with CLIA requirements. This test has not been cleared or approved by the U.S. Food and Drug Administration. Test Performed by: [facility] [address] [place] [address] Cotton Buyer: Rosendo Bose M.D. Ph.D.; CLIA# [id number] Performed By: #### Chinedu Feliz, CHM7, HFP, IPB, MGO #### [facility] (DEFAULT) [address] [place] [address] Itraconazole 6.0 mcg/mL Normal [facility] Comment on above: Order Comment: Pleas e draw level at specified interval PRIOR to dose. Result Comment: REFERENCE VALUE >0.5 (localized infection), >1.0 (systemic infection) Performed By: #### C Tray, CHM7, HFP, IPB, MGO #### [facility] (DEFAULT) [address] [place] [address] MAGNESIUMon 01-20-2024 Interpretation and review of laboratory results Normal [facility] Magnesium [Mass/Vol] 1.6 mg/dL 1.6 - 2 .6 mg/dL [facility] Magnesium [Mass/Vol] 1.6 mg/dL Normal 1.6-2.6 [facility] Comment on above: Performed By: #### C HM7, HFP, MGO #### [facility] (DEFAULT) [address] [place] [address] No Panel Informationon 01-20 [facility] POCT CO-OXIMETRYon Hemoglobin (Bld) [Mass/Vol] 12.8 g/dL Low 13.4 - 16.8 g/dL [facility] Interpretation and review of laboratory results Abnormal [facility] Oxyhemoglobin 69 % Low 94 - 98 % [facility] Ordering physician notified. Test performed at address of the patient encounter. [facility] Hemoglobin (Bld) [Mass/Vol] 13.3 g/dL Low 13.4 - 16.8 g/dL [facility] Interpretation and review of laboratory results Abnormal [facility] Oxyhemoglobin 69 % Low 94 - 98 % [facility] Ordering physician notified. Test performed at address of the patient encounter. [facility] PT,INR,PTTon 01-20-2024 aPTT Coag (PPP) [Time] 30.6 s [facility] INR Coag (Bld) [Relative time] 1.2 {INR} High 0.9 - 1.1 [facility] Interpretation and review of laboratory results Abnormal [facility] PT Coag (PPP) [Time] 15.5 s High [facility] aPTT Coag (Bld) [Time] 30.6 s Normal 24.0-34.3 [facility] Comment on above: Performed By: #### C Tray, CHM7, HFP, IPB, MGO #### [facility] (DEFAULT) [address] [place] [address] INR Coag (PPP) [Relative time] 1.2 {INR} High 0.9-1.1 [facility] Comment on above: Performed By: #### C Tray, CHM7, HFP, IPB, MGO #### [facility] (DEFAULT) [address] [place] [address] PT Coag (PPP) [Time] 15.5 s High 11.9-14.2 [facility] Comment on above: Performed By: #### C Tray, CHM7, HFP, IPB, MGO #### [facility] (DEFAULT) [address] [place] [address] 27073 TACROLIMUS LEVEL, TROUGH (WI E DRUG LEVEL)Ordered By: Yanira Marcum on 01-20-2024 Interpretation and review of laboratory results Normal [facility] Tacrolimus (Bld) [Mass/Vol] 7.7 ng/mL Bone Marrow Transplant: 4.0-12.0, Therapeutic: 5.0-15.0 [facility] Method performed is a chemiluminescent microparticle immunoasssay on the [employer] i2000. The range is based on experience at [facility] and users should be aware that target concentrations vary widely depending on concomitant therapy, time post-transplant, and desired degree of immunosuppression. [facility] TACROLIMUS LEVEL, TROUGH (WI E DRUG LEVEL)on 01-20-2024 Tacrolimus, Trough 7.7 ng/mL Normal Bone Susana ow Transplant: 4.0-12.0, Therapeutic: 5.0-15.0 [facility] Comment on above: Order Comment: Pleas e draw at specified interval PRIOR to dose. Do not hold dose to wait for level. Specimens batched twice per day, (M-F) and once per day weekendsMethod performed is a chemiluminescent microparticle immunoasssay on the [employer] i2000.The range is based on experience at [facility] and users should be aware that target concentrations vary widely depending on concomitant therapy, time post-transplant, and desired degree of immunosuppression. Performed By: #### C Tray, CHM7, HFP, IPB, MGO #### [facility] (DEFAULT) [address] [place] [address] CBC,PLATELETSon 01-19-2024 Erythrocyte distribution width (RBC) [Ratio] 13.9 % 10.9 - 14.3 % [facility] Hematocrit (Bld) [Volume fraction] 37.5 % Low 39.6 - 48.8 % [facility] Hemoglobin (Bld) [Mass/Vol] 12.1 g/dL Low 13.4 - 16.8 g/dL [facility] Interpretation and review of laboratory results Abnormal [facility] MCH (RBC) [Entitic mass] 28.3 pg 26.1 - 33.3 pg [facility] MCHC (RBC) [Mass/Vol] 32.3 g/dL 31.9 - 36.5 g/dL [facility] MCV (RBC) [Entitic vol] 87.8 fL 79.0 - 94.5 fL [facility] Platelet mean volume (Bld) [Entitic vol] 10.4 fL 8.7 - 12.3 fL [facility] Platelets (Bld) [#/Vol] 163 10*3/uL 146 - 337 K/uL [facility] RBC (Bld) [#/Vol] 4.27 10*6/uL Low [facility] WBC (Bld) [#/Vol] 3.69 10*3/uL Low 3.73 - 10. 10 K/uL [facility] Hematocrit (Bld) [Volume fraction] 37.5 % Low 39.6-48.8 [facility] Comment on above: Performed By: #### C Tray, CHM7, HFP, IPB, MGO #### [facility] (DEFAULT) [address] [place] [address]50 Hemoglobin (Bld) [Mass/Vol] 12.1 g/dL Low 13.4-16.8 [facility] Comment on above: Performed By: #### C Tray, CHM7, HFP, IPB, MGO #### [facility] (DEFAULT) [address] [place] [address] MCV (RBC) [Entitic vol] 87.8 fL Normal 79.0-94.5 [facility] Comment on above: Performed By: #### C A, CHM7, HFP, IPB, MGO #### [facility] (DEFAULT) [address] [place] [address] 20397 Mean Cell Hgb 28.3 pg Normal 26.1-33.3 [facility] Comment on above: Performed By: #### Chinedu Feliz, CHM7, HFP, IPB, MGO #### [facility] (DEFAULT) [address] [place] [address] 24034 Mean Cell Hgb Conc 32.3 g/dL Normal 31.9-36.5 [facility] Comment on above: Performed By: #### Chinedu Feliz, CHM7, HFP, IPB, MGO #### [facility] (DEFAULT) [address] [place] [address] 42264 Platelet mean volume (Bld) [Entitic vol] 10.4 fL Normal 8.7-12.3 [facility] Comment on above: Performed By: #### Chinedu Feliz, CHM7, HFP, IPB, MGO #### [facility] (DEFAULT) [address] [place] [address] 91815 Platelets (Bld) [#/Vol] 163 10*3/uL Normal 146-337 [facility] Comment on above: Performed By: #### Chinedu Feliz, CHM7, HFP, IPB, MGO #### [facility] (DEFAULT) [address] [place] [address] 01328 RBC (Bld) [#/Vol] 4.27 10*6/uL Low 4.38-5.83 [facility] Comment on above: Performed By: #### Chinedu Feliz, CHM7, HFP, IPB, MGO #### [facility] (DEFAULT) [address] [place] [address] 51917 RBC Distribution 13.9 % Normal 10.9-14.3 [facility] Comment on above: Performed By: #### Chinedu Feliz, CHM7, HFP, IPB, MGO #### [facility] (DEFAULT) [address] [place] [address] 56868 WBC (Bld) [#/Vol] 3.69 10*3/uL Low 3.73-10.10 [facility] Comment on above: Performed By: #### C Tray, CHM7, HFP, IPB, MGO #### [facility] (DEFAULT) [address] [place] [address] CHEM 7 (LYTES,BUN,CREA,GLUC) on 01-19-2024 Anion gap [Moles/Vol] 14 mmol/L 7 - 17 mmol/L [facility] Chloride [Moles/Vol] 106 mmol/L 98 - 10 8 mmol/L [facility] CO2 [Moles/Vol] 24 mmol/L 21 - 31 mmol/L [facility] Creatinine [Mass/Vol] 1.13 mg/dL 0.70 - 1.30 mg/dL [facility] eGFR, CKD-EPI, Male 79 - PINF [facility] Comment on above: Reported eGFR is bas ed on the CKD-EPI 2020 equation using creatinine, age, and sex. Glucose [Mass/Vol] 86 mg/dL 70 - 99 mg/dL [facility] Osmolality Calc [Osmolality] 293 [facility] Potassium [Moles/Vol] 3.8 mmol/L 3.5 - 5.0 mmol/L [facility] Sodium [Moles/Vol] 140 mmol/L 135 - 145 mmol/L [facility] Urea nitrogen [Mass/Vol] 16 mg/dL 7 - 25 mg/dL [facility] Urea nitrogen/Creatinine [Mass ratio] 14 mg/mg [facility] Anion gap [Moles/Vol] 14 mmol/L Normal 7-17 [facility] Comment on above: Performed By: #### C A, CHM7, HFP, IPB, MGO #### [facility] (DEFAULT) [address] [place] [address] Chloride [Moles/Vol] 106 mmol/L Normal 98-108 [facility] Comment on above: Performed By: #### C A, CHM7, HFP, IPB, MGO #### [facility] (DEFAULT) [address] [place] [address] CO2 [Moles/Vol] 24 mmol/L Normal 21-31 [facility] Comment on above: Performed By: #### C Tray, CHM7, HFP, IPB, MGO #### [facility] (DEFAULT) [address] [place] [address] 07757 Creatinine [Mass/Vol] 1.13 mg/dL Normal 0.70-1.30 [facility] Comment on above: Performed By: #### Chinedu Feliz, CHM7, HFP, IPB, MGO #### [facility] (DEFAULT) [address] [place] [address] 37287 GFR/1.73 sq M.predicted among non-blacks MDRD (S/P/Bld) [Vol rate/Area] 78 mL/min/{1.73_m2} Normal >=60 [facility] Comment on above: Result Comment: Repo rted eGFR is based on the CKD-EPI 2020 equation using creatinine, age, and sex. Performed By: #### Chinedu Feliz, CHM7, HFP, IPB, MGO #### [facility] (DEFAULT) [address] [place] [address] 77857 Glucose [Mass/Vol] 86 mg/dL Normal 70-99 [facility] Comment on above: Performed By: #### Chinedu Feliz, CHM7, HFP, IPB, MGO #### [facility] (DEFAULT) [address] [place] [address] 87664 Osmolality [Osmolality] 293 mosm/kg Normal 278-305 [facility] Comment on above: Performed By: #### C Tray, CHM7, HFP, IPB, MGO #### [facility] (DEFAULT) [address] [place] [address] 20286 Potassium [Moles/Vol] 3.8 mmol/L Normal 3.5-5.0 [facility] Comment on above: Performed By: #### Chinedu A, CHM7, HFP, IPB, MGO #### [facility] (DEFAULT) [address] [place] [address] 97046 Sodium [Moles/Vol] 140 mmol/L Normal 135-145 [facility] Comment on above: Performed By: #### C Tray, CHM7, HFP, IPB, MGO #### [facility] (DEFAULT) [address] [place] [address] 70488 Urea nitrogen [Mass/Vol] 16 mg/dL Normal 7-25 [facility] Comment on above: Performed By: #### C A, CHM7, HFP, IPB, MGO #### [facility] (DEFAULT) [address] [place] [address] 38500 Urea nitrogen/Creatinine [Mass ratio] 14 mg/mg Normal [facility] Comment on above: Performed By: #### C Tray, CHM7, HFP, IPB, MGO #### [facility] (DEFAULT) [address] [place] [address] 95456 EBV BY PCR, QUANTITATIVE,BLO ODon 01-19-2024 Ebv By Pcr, Quant, Blood <1000 Normal <1000 [facility] Comment on above: Order Comment: This test was performed using a real time PCR assay. The dynamic range for this assay is 1000-5,000,000 IU/mL. A result <1000 IU/mL does not rule out the presence of EBV DNA in quantities below the sensitivity of this assay. This test was developed and its performance characteristics determined by The [facility] at [facility]. It has not been cleared or approved by the FDA. The laboratory is regulated under CLIA as qualified to perform high-complexity testing. This test is used for clinical purposes. It should not be regarded as investigational or for research. Performed By: #### C A, CHM7, HFP, IPB, MGO #### [facility] (DEFAULT) [address] [place] [address] 96126 HISTOPLASMA AND BLASTOMYCES ANTIGEN, ENZYME IMMUNOASSAY, SERMon 01-19-2024 Histoplasma/Blastomyce s Ag Result Not detected Not Detected [facility] Comment on above: No antigen from Hist oplasma or Blastomyces detected. False negative results may occur depending on extent of disease, and/or site of infection. Repeat testing on a new specimen if clinically indicated. Histoplasma/Blastomyce s Ag Value Not detected ng/mL [facility] Comment on above: ADDITIONAL INFORMATION This test was developed and its performance characteristics determined by [facility] in a manner consistent with CLIA requirements. This test has not been cleared or approved by the U.S. Food and Drug Administration. Test Performed by: [facility] [address] [place] [address] Cotton Buyer: Rosendo Bose M.D. Ph.D.; CLIA# [id number] [facility] MAGNESIUMon 01-19-2024 Interpretation and review of laboratory results Normal [facility] Magnesium [Mass/Vol] 1.8 mg/dL 1.6 - 2 .6 mg/dL [facility] Magnesium [Mass/Vol] 1.8 mg/dL Normal 1.6-2.6 [facility] Comment on above: Performed By: #### C A, CHM7, HFP, IPB, MGO #### [facility] (DEFAULT) [address] [place] [address] No Panel Informationon 01-19 [facility] TACROLIMUS LEVEL, TROUGH (WI E DRUG LEVEL)Ordered By: Raymundo Mehta on 01-19-2024 Interpretation and review of laboratory results Normal [facility] Tacrolimus (Bld) [Mass/Vol] 6.8 ng/mL Bone Marrow Transplant: 4.0-12.0, Therapeutic: 5.0-15.0 [facility] Method performed is a chemiluminescent microparticle immunoasssay on the [employer] i2000. The range is based on experience at [facility] and users should be aware that target concentrations vary widely depending on concomitant therapy, time post-transplant, and desired degree of immunosuppression. [facility] TACROLIMUS LEVEL, TROUGH (WI E DRUG LEVEL)on 01-19-2024 Tacrolimus, Trough 6.8 ng/mL Normal Bone Susana ow Transplant: 4.0-12.0, Therapeutic: 5.0-15.0 [facility] Comment on above: Order Comment: Pleas e draw at specified interval PRIOR to dose. Do not hold dose to wait for level. Specimens batched twice per day, (M-F) and once per day weekendsMethod performed is a chemiluminescent microparticle immunoasssay on the [employer] i2000.The range is based on experience at [facility] and users should be aware that target concentrations vary widely depending on concomitant therapy, time post-transplant, and desired degree of immunosuppression. Performed By: #### C HM7, HFP, MGO #### [facility] (DEFAULT) [address] [place] [address] US AV fistulaOrdered By: Diana Reyes on 01-19-2024 [facility] Work Phone: US AV fistulaon 01-19-2024 Radiology Study observation (narrative) [facility] AFP TUMOR MARKEROrdered By: Francisca Alaniz on 01-18-2024 AFP.tumor marker [Mass/Vol] ng/mL NINF - 8.1 ng/mL [facility] Comment on above: This test was perfor med on the Prism Microwave Immunoassay platform by [employer] which is a two-site sandwich chemiluminescent immunoassay. It is important to note that assays using different manufacturers and/or methods may not be comparable. Interpretation and review of laboratory results Normal [facility] CBC,PLATELETSon 01-18-2024 Erythrocyte distribution width (RBC) [Ratio] 13.9 % 10.9 - 14.3 % [facility] Hematocrit (Bld) [Volume fraction] 38.4 % Low 39.6 - 48.8 % [facility] Hemoglobin (Bld) [Mass/Vol] 12.1 g/dL Low 13.4 - 16.8 g/dL [facility] Interpretation and review of laboratory results Abnormal [facility] MCH (RBC) [Entitic mass] 27.8 pg 26.1 - 33.3 pg [facility] MCHC (RBC) [Mass/Vol] 31.5 g/dL Low 31.9 - 36.5 g/dL [facility] MCV (RBC) [Entitic vol] 88.3 fL 79.0 - 94.5 fL [facility] Platelet mean volume (Bld) [Entitic vol] 10.4 fL 8.7 - 12.3 fL [facility] Platelets (Bld) [#/Vol] 183 10*3/uL 146 - 337 K/uL [facility] RBC (Bld) [#/Vol] 4.35 10*6/uL Low [facility] WBC (Bld) [#/Vol] 3.66 10*3/uL Low 3.73 - 10. 10 K/uL [facility] Hematocrit (Bld) [Volume fraction] 38.4 % Low 39.6-48.8 [facility] Comment on above: Performed By: #### Chinedu Feliz, CHM7, HFP, IPB, MGO #### [facility] (DEFAULT) [address] [place] [address]269 Hemoglobin (Bld) [Mass/Vol] 12.1 g/dL Low 13.4-16.8 [facility] Comment on above: Performed By: #### Chinedu Feliz, CHM7, HFP, IPB, MGO #### [facility] (DEFAULT) [address] [place] [address] 92576 MCV (RBC) [Entitic vol] 88.3 fL Normal 79.0-94.5 [facility] Comment on above: Performed By: #### Chinedu Feliz, CHM7, HFP, IPB, MGO #### [facility] (DEFAULT) [address] [place] [address] 67130 Mean Cell Hgb 27.8 pg Normal 26.1-33.3 [facility] Comment on above: Performed By: #### Chinedu Feliz, CHM7, HFP, IPB, MGO #### [facility] (DEFAULT) [address] [place] [address] 52119 Mean Cell Hgb Conc 31.5 g/dL Low 31.9-36.5 [facility] Comment on above: Performed By: #### C A, CHM7, HFP, IPB, MGO #### [facility] (DEFAULT) [address] [place] [address] 15375 Platelet mean volume (Bld) [Entitic vol] 10.4 fL Normal 8.7-12.3 [facility] Comment on above: Performed By: #### C A, CHM7, HFP, IPB, MGO #### [facility] (DEFAULT) [address] [place] [address] 18862 Platelets (Bld) [#/Vol] 183 10*3/uL Normal 146-337 [facility] Comment on above: Performed By: #### C A, CHM7, HFP, IPB, MGO #### [facility] (DEFAULT) [address] [place] [address] 17237 RBC (Bld) [#/Vol] 4.35 10*6/uL Low 4.38-5.83 [facility] Comment on above: Performed By: #### C A, CHM7, HFP, IPB, MGO #### [facility] (DEFAULT) [address] [place] [address] 04818 RBC Distribution 13.9 % Normal 10.9-14.3 [facility] Comment on above: Performed By: #### C A, CHM7, HFP, IPB, MGO #### [facility] (DEFAULT) [address] [place] [address] 89502 WBC (Bld) [#/Vol] 3.66 10*3/uL Low 3.73-10.10 [facility] Comment on above: Performed By: #### C A, CHM7, HFP, IPB, MGO #### [facility] (DEFAULT) [address] [place] [address] 60537 CHEM 7 (LYTES,BUN,CREA,GLUC) on 01-18-2024 Anion gap [Moles/Vol] 11 mmol/L 7 - 17 mmol/L [facility] Chloride [Moles/Vol] 108 mmol/L 98 - 10 8 mmol/L [facility] CO2 [Moles/Vol] 26 mmol/L 21 - 31 mmol/L [facility] Creatinine [Mass/Vol] 1.00 mg/dL 0.70 - 1.30 mg/dL [facility] eGFR, CKD-EPI, Male - PINF [facility] Comment on above: Reported eGFR is bas ed on the CKD-EPI 2020 equation using creatinine, age, and sex. Glucose [Mass/Vol] 89 mg/dL 70 - 99 mg/dL [facility] Osmolality Calc [Osmolality] 295 [facility] Potassium [Moles/Vol] 3.9 mmol/L 3.5 - 5.0 mmol/L [facility] Sodium [Moles/Vol] 141 mmol/L 135 - 145 mmol/L [facility] Urea nitrogen [Mass/Vol] 16 mg/dL 7 - 25 mg/dL [facility] Urea nitrogen/Creatinine [Mass ratio] 16 mg/mg [facility] Anion gap [Moles/Vol] 11 mmol/L Normal 7-17 [facility] Comment on above: Performed By: #### C JASMYNE, TAVO, MGO #### [facility] (DEFAULT) [address] [address] Chloride [Moles/Vol] 108 mmol/L Normal 98-108 [facility] Comment on above: Performed By: #### Chinedu MEDLEY, TAVO, MGO #### [facility] (DEFAULT) [address] [place] [address] 78254 CO2 [Moles/Vol] 26 mmol/L Normal 21-31 [facility] Comment on above: Performed By: #### Chinedu MEDLEY, HFP, MGO #### [facility] (DEFAULT) [address] [address] Creatinine [Mass/Vol] 1.00 mg/dL Normal 0.70-1.30 [facility] Comment on above: Performed By: #### Chinedu MEDLEY, HFP, MGO #### [facility] (DEFAULT) [address] [place] [address] 00686 eGFR, CKD-EPI, Male > Normal >=60 [facility] Comment on above: Result Comment: Repo rted eGFR is based on the CKD-EPI 1 equation using creatinine, age, and sex. Performed By: #### C HM7, HFP, MGO #### [facility] (DEFAULT) [address] [place] [address]605 Glucose [Mass/Vol] 89 mg/dL Normal 70-99 [facility] Comment on above: Performed By: #### C HM7, HFP, MGO #### [facility] (DEFAULT) [address] [place] [address]30 Osmolality [Osmolality] 295 mosm/kg Normal 278-305 [facility] Comment on above: Performed By: #### C HM7, HFP, MGO #### [facility] (DEFAULT) [address] [place] [address]13 Potassium [Moles/Vol] 3.9 mmol/L Normal 3.5-5.0 [facility] Comment on above: Performed By: #### C HM7, HFP, MGO #### [facility] (DEFAULT) [address] [place] [address] 67804 Sodium [Moles/Vol] 141 mmol/L Normal 135-145 [facility] Comment on above: Performed By: #### C HM7, HFP, MGO #### [facility] (DEFAULT) [address] [place] [address]138 Urea nitrogen [Mass/Vol] 16 mg/dL Normal 7-25 [facility] Comment on above: Performed By: #### C HM7, HFP, MGO #### [facility] (DEFAULT) [address] [place] [address] 59020 Urea nitrogen/Creatinine [Mass ratio] 16 mg/mg Normal [facility] Comment on above: Performed By: #### C HM7, HFP, MGO #### [facility] (DEFAULT) [address] [place] [address] Cardiac echo study Procedure Ordered By: Gian Carlos on 01-18-2024 Ao ASC index 1.63 cm/m2 [facility] Work Phone: [phone] Ao peak meliton 1.46 m/s [facility] Work Phone: [phone] Ao SOV index 1.56 cm/m2 [facility] Work Phone: [phone] Ao STJ index 1.25 cm/m2 [facility] Work Phone: [phone] Ao VTI 35.74 cm [facility] Work Phone: [phone] [facility]: [phone] AV LVOT peak gradient 4 mmHg [facility] Work Phone: [phone] [facility]: [phone] AV peak gradient 9 mmHG [facility] Work Phone: [phone] AV valve area 3.09 cm2 [facility] Work Phone: [phone] AV Velocity Ratio 0.73 [facility] Work Phone: [phone] VEGA (continuity Vmax) 3.01 cm2 [facility] Work Phone: [phone] VEGA (continuity VTI) 3.09 cm2 [facility] Work Phone: [phone] VEGA index (continuity Vmax) 1.45 m/s [facility] Work Phone: [phone] VEGA index (continuity VTI) 1.49 cm2/m2 [facility] Work Phone: [phone] Avg e' pk meliton 0.07 m/s [facility] Work Phone: [phone] Avg E/e' ratio 19.45 [facility] Work Phone: [phone] Body surface area Derived from formula 2.08 m2 [facility] Work Phone: [phone] BP EF 62 % [facility] Work Phone: [phone] DI (Vmax) 0.73 [facility] Work Phone: [phone] DI (VTI) 0.74 m/2 [facility] Work Phone: [phone] E wave decelartion time 180.38 msec [facility] Work Phone: [phone] e' lateral pk meliton 0.0789 m/s [facility] Phone: [phone] e' lateral pk meliton 0.08 m/s [facility] Work Phone: [phone] e' septal pk meliton 0.0653 m/s [facility] Work Phone: [phone] e' septal pk meliton 0.07 m/s [facility] Work Phone: [phone] E/A ratio 2.67 [facility] Work Phone: [phone] E/e' lateral ratio 17.62 [facility] Work Phone: [phone] E/e' septal ratio 21.29 [facility] Work Phone: [phone] EF SP 2CH 66 [facility] Work Phone: [phone] EF SP 4CH 58 [facility] Work Phone: [phone] FS 28 % 28 - 44 % [facility] Work Phone: [phone] IVC ostium 2.30 cm [facility] Work Phone: [phone] IVS 1.11 cm [facility] Work Phone: [phone] LA AREA 2CH 24.36 cm2 [facility] Work Phone: [phone] LA area 4CH 20.36 cm2 [facility] Work Phone: [phone] LA ESV BP (MOD) 64 mL [facility] Work Phone: [phone] LA ESV BP (MOD) index 31 mL/m2 [facility] Work Phone: [phone] LA ESV SP 2CH (MOD) 76 mL [facility] Work Phone: [phone] LA ESV SP 4CH (MOD) 53 mL [facility] Work Phone: [phone] LV EDV BP 180 mL [facility] Work Phone: [phone] LV EDV SP 2CH 190 mL [facility] Work Phone: [phone] LV EDV SP 4CH 166 mL [facility] Work Phone: [phone] LV ESV BP 69 mL [facility] Work Phone: [phone] LV ESV SP 2CH 65 mL [facility] Work Phone: [phone] LV ESV SP 4CH 70 mL [facility] Work Phone: [phone] LV mass 254.73 g [facility] Work Phone: [phone] LV Mass Index 122.5 g/m2 [facility] Work Phone: [phone] LV RWT 0.42 [facility] Work Phone: [phone] LV stroke volume BP (ml) 111 mL [facility] Work Phone: [phone] LV stroke volume index BP 53.37 mL/m2 [facility] Work Phone: [phone] LVIDD 5.53 cm [facility] Work Phone: [phone] LVIDS 3.97 cm [facility] Work Phone: [phone] LVOT area 4.15 cm2 [facility] Work Phone: [phone] LVOT diameter 2.30 cm [facility] Work Phone: [phone] LVOT peak meliton 1.06 m/s [facility] Work Phone: [phone] LVOT peak VTI 26.61 cm [facility] Work Phone: [phone] LVOT stroke volume 111 cm3 [facility] Work Phone: [phone] LVOT stroke volume index 53.13 ml/m2 [facility] Work Phone: [phone] Mr max meliton 4.21 m/s [facility] Work Phone: [phone] MR VTI 134.50 cm [facility] Work Phone: [phone] MV mean gradient 3 mmHg [facility] Work Phone: [phone] MV peak gradient 11 mmHg [facility] Work Phone: [phone] MV pk A meliton 0.52 m/s [facility] Work Phone: [phone] MV pk E meliton 1.39 m/s [facility] Work Phone: [phone] MV stenosis pressure 1/2 time 58.56 ms [facility] Work Phone: [phone] MV valve area by continuity eq 2.93 cm2 [facility] Work Phone: [phone] MV valve area p 1/2 method 3.76 cm2 [facility] Work Phone: [phone] MV VTI 37.70 cm [facility] Work Phone: [phone] MVA (continuity VTI) 2.92 cm [facility] Work Phone: [phone] [facility] AV VTI RATIO PRE STRESS 0.74 [facility] Work Phone: [facility] ECHO LV BIPLANE SYSTOLIC VOLUME INDEX 33.17 mL/m2 [facility] Work Phone: [facility] ECHO LV BP DIASTOLIC VOLUME INDEX 86.54 mL/m2 [facility] Work Phone: [facility] ECHO MR PEAK GRADIENT 70.94 mmHg [facility] Work Phone: PW 1.16 cm [facility] Work Phone: RA area 4CH (MOD) 14.50 cm2 [facility] Work Phone: RA vol index 4CH (MOD) 18.27 mL/m2 [facility] Work Phone: Right atrium volume 4 chamber method of disks 38 mL [facility] Work Phone: RV Area diastolic 33.20 cm2 [facility] Work Phone: RV Area systolic 21.30 cm2 [facility] Work Phone: RV basal diam 4.52 cm [facility] Work Phone: RV Fractional area change 35.8 % [facility] Work Phone: RV long diam 8.96 cm [facility] Work Phone: RV mid diam 3.70 cm [facility] Work Phone: RV S' 22.01 cm/s [facility] Work Phone: RVOT peak gradient 4 mmHg [facility] Work Phone: RVOT peak meliton 0.96 m/s [facility] Work Phone: RVOT peak VTI 20.86 cm [facility] Work Phone: Sinus 3.24 cm [facility] Work Phone: [phone] STJ 2.61 cm [facility] Work Phone: [phone] Stroke Volume 111 cm/mL [facility] Work Phone: [phone] Stroke volume index 53 [facility] Work Phone: [phone] TAPSE 2.19 cm [facility] Work Phone: [phone] [facility] Work Phone: [phone] Cardiac echo study Procedure on 01-18-2024 Left [...] echocardiography study was performed. Imaging system used: [employer]. Indications Indications for study: shortness of breath. [facility] Radiology Study observation (narrative) [facility] ECHOCARDIOGRAMon 01-18-2024 Echocardiography ? Left Ventricle: Chamber [...] original result were not included. Facility [facility] Patient Information Patient Name George Styles Legal [...] Role Read Date Gian Carlos MD Echo Vass 01/18/2024 Left Heart Measurements LV - Systole [...] Height We (more content not included)... Normal [facility] HEPATIC FUNCTION PANELon Albumin [Mass/Vol] 3.5 g/dL 3.5 - 5.0 g/dL [facility] ALP [Catalytic activity/Vol] 70 U/L 32 - 126 U/L [facility] ALT [Catalytic activity/Vol] 8 U/L Low 10 - 52 U/L [facility] AST [Catalytic activity/Vol] 20 U/L 10 - 39 U/L [facility] Bilirubin [Mass/Vol] 1.7 mg/dL High NINF - 1.5 mg/dL [facility] Bilirubin.direct [Mass/Vol] 0.4 mg/dL High NINF - 0.3 mg/dL [facility] Protein [Mass/Vol] 6.0 g/dL Low 6.4 - 8.3 g/dL [facility] Albumin [Mass/Vol] 3.5 g/dL Normal 3.5-5.0 [facility] Comment on above: Performed By: #### C HMJessica, HFP, MGO #### [facility] (DEFAULT) [address] [place] [address] ALP [Catalytic activity/Vol] 70 U/L Normal 32-126 [facility] Comment on above: Performed By: #### Chinedu HM7, HFP, MGO #### [facility] (DEFAULT) [address] [place] [address] ALT [Catalytic activity/Vol] 8 U/L Low 10-52 [facility] Comment on above: Performed By: #### C HM7, HFP, MGO #### [facility] (DEFAULT) [address] [place] [address] 84020 AST [Catalytic activity/Vol] 20 U/L Normal 10-39 [facility] Comment on above: Performed By: #### C HM7, HFP, MGO #### [facility] (DEFAULT) [address] [place] [address] 31877 Bilirubin [Mass/Vol] 1.7 mg/dL High <1.5 [facility] Comment on above: Performed By: #### C HM7, HFP, MGO #### [facility] (DEFAULT) [address] [place] [address] 06315 Bilirubin.indirect [Mass/Vol] 0.4 mg/dL High <0.3 [facility] Comment on above: Performed By: #### Chinedu HM7, HFP, MGO #### [facility] (DEFAULT) [address] [place] [address] 84801 Protein [Mass/Vol] 6.0 g/dL Low 6.4-8.3 [facility] Comment on above: Performed By: #### Chinedu HM7, HFP, MGO #### [facility] (DEFAULT) [address] [place] [address] 91425 MAGNESIUMon 01-18-2024 Magnesium [Mass/Vol] 1.5 mg/dL Low 1.6 - 2 .6 mg/dL [facility] Magnesium [Mass/Vol] 1.5 mg/dL Low 1.6-2.6 [facility] Comment on above: Performed By: #### C HM7, HFP, MGO #### [facility] (DEFAULT) [address] [place] [address] 29188 No Panel Informationon 01-18 Interpretation and review of laboratory results Abnormal [facility] PT,INR,PTTon 01-18-2024 aPTT Coag (PPP) [Time] 30.0 s [facility] INR Coag (Bld) [Relative time] 1.1 {INR} 0.9 - 1.1 [facility] Interpretation and review of laboratory results Abnormal [facility] PT Coag (PPP) [Time] 14.5 s High [facility] aPTT Coag (Bld) [Time] 30.0 s Normal 24.0-34.3 [facility] Comment on above: Performed By: #### C A, CHM7, HFP, IPB, MGO #### [facility] (DEFAULT) [address] [place] [address] 14560 INR Coag (PPP) [Relative time] 1.1 {INR} Normal 0.9-1.1 [facility] Comment on above: Performed By: #### C A, CHM7, HFP, IPB, MGO #### [facility] (DEFAULT) [address] [place] [address] 87154 PT Coag (PPP) [Time] 14.5 s High 11.9-14.2 [facility] Comment on above: Performed By: #### C A, CHM7, HFP, IPB, MGO #### [facility] (DEFAULT) [address] [place] [address] 90110 TSH W/FT4 REFLEXon 4 Interpretation and review of laboratory results Normal [facility] TSH Qn 2.660 m[IU]/L [facility] TSH 2.660 uIU/mL Normal 0.550-4.780 [facility] Comment on above: Performed By: #### C HM7, HFP, MGO #### [facility] (DEFAULT) [address] [place] [address] 30227 AFP TUMOR MARKERon 4 AFP Tumor Marker <2.2 Normal <8.1 [facility] Comment on above: Result Comment: This test was performed on the Prism Microwave Immunoassay platform by [employer] which is a two-site sandwich chemiluminescent immunoassay. It is important to note that assays using different manufacturers and/or methods may not be comparable. Performed By: #### C A, CHM7, HFP, IPB, MGO #### [facility] (DEFAULT) [address] [place] [address] DARYL AURIS SCREEN BY PCRO rdered By: Mynor Alejandro on 01-17-2024 Daryl auris Screen by PCR Not detected Not Detected [facility] Interpretation and review of laboratory results Normal [facility] This test was performed using a real-time PCR assay. This test was developed, and its performance characteristics determined by [facility]. It has not been cleared or approved by the FDA. The laboratory is regulated under CLIA as qualified to perform high-complexity testing. This test is used for clinical purposes. It should not be regarded as investigational or for research. [facility] CBC,PLATELETSon 01-17-2024 Erythrocyte distribution width (RBC) [Ratio] 14.0 % 10.9 - 14.3 % [facility] Hematocrit (Bld) [Volume fraction] 37.2 % Low 39.6 - 48.8 % [facility] Hemoglobin (Bld) [Mass/Vol] 12.0 g/dL Low 13.4 - 16.8 g/dL [facility] Interpretation and review of laboratory results Abnormal [facility] MCH (RBC) [Entitic mass] 27.9 pg 26.1 - 33.3 pg [facility] MCHC (RBC) [Mass/Vol] 32.3 g/dL 31.9 - 36.5 g/dL [facility] MCV (RBC) [Entitic vol] 86.5 fL 79.0 - 94.5 fL [facility] Platelet mean volume (Bld) [Entitic vol] 10.5 fL 8.7 - 12.3 fL [facility] Platelets (Bld) [#/Vol] 159 10*3/uL 146 - 337 K/uL [facility] RBC (Bld) [#/Vol] 4.30 10*6/uL Low [facility] WBC (Bld) [#/Vol] 3.69 10*3/uL Low 3.73 - 10. 10 K/uL [facility] Hematocrit (Bld) [Volume fraction] 37.2 % Low 39.6-48.8 [facility] Comment on above: Performed By: #### Chinedu HM7, HFP, MGO #### [facility] (DEFAULT) [address] [place] [address] 24062 Hemoglobin (Bld) [Mass/Vol] 12.0 g/dL Low 13.4-16.8 [facility] Comment on above: Performed By: #### Chinedu HM7, HFP, MGO #### [facility] (DEFAULT) [address] [place] [address] 01854 MCV (RBC) [Entitic vol] 86.5 fL Normal 79.0-94.5 [facility] Comment on above: Performed By: #### Chinedu HM7, HFP, MGO #### [facility] (DEFAULT) [address] [place] [address] 31527 Mean Cell Hgb 27.9 pg Normal 26.1-33.3 [facility] Comment on above: Performed By: #### Chinedu HM7, HFP, MGO #### [facility] (DEFAULT) [address] [place] [address] 61518 Mean Cell Hgb Conc 32.3 g/dL Normal 31.9-36.5 [facility] Comment on above: Performed By: #### Chinedu HM7, HFP, MGO #### [facility] (DEFAULT) [address] [place] [address] 34146 Platelet mean volume (Bld) [Entitic vol] 10.5 fL Normal 8.7-12.3 [facility] Comment on above: Performed By: #### Chinedu HM7, HFP, MGO #### [facility] (DEFAULT) [address] [place] [address] 48884 Platelets (Bld) [#/Vol] 159 10*3/uL Normal 146-337 [facility] Comment on above: Performed By: #### C HM7, HFP, MGO #### [facility] (DEFAULT) [address] [place] [address] 84731 RBC (Bld) [#/Vol] 4.30 10*6/uL Low 4.38-5.83 [facility] Comment on above: Performed By: #### C HM7, HFP, MGO #### [facility] (DEFAULT) [address] [place] [address] 06537 RBC Distribution 14.0 % Normal 10.9-14.3 [facility] Comment on above: Performed By: #### Chinedu HM7, HFP, MGO #### [facility] (DEFAULT) [address] [place] [address] 24585 WBC (Bld) [#/Vol] 3.69 10*3/uL Low 3.73-10.10 [facility] Comment on above: Performed By: #### Chinedu HM7, HFP, MGO #### [facility] (DEFAULT) [address] [place] [address] 33004 CHEM 7 (LYTES,BUN,CREA,GLUC) on 01-17-2024 Anion gap [Moles/Vol] 13 mmol/L 7 - 17 mmol/L [facility] Chloride [Moles/Vol] 109 mmol/L High 98 - 10 8 mmol/L [facility] CO2 [Moles/Vol] 21 mmol/L 21 - 31 mmol/L [facility] Creatinine [Mass/Vol] 1.04 mg/dL 0.70 - 1.30 mg/dL [facility] eGFR, CKD-EPI, Male 86 - PINF [facility] Comment on above: Reported eGFR is bas ed on the CKD-EPI 2020 equation using creatinine, age, and sex. Glucose [Mass/Vol] 82 mg/dL 70 - 99 mg/dL [facility] Osmolality Calc [Osmolality] 292 [facility] Potassium [Moles/Vol] 4.4 mmol/L 3.5 - 5.0 mmol/L [facility] Sodium [Moles/Vol] 139 mmol/L 135 - 145 mmol/L [facility] Urea nitrogen [Mass/Vol] 17 mg/dL 7 - 25 mg/dL [facility] Urea nitrogen/Creatinine [Mass ratio] 16 mg/mg [facility] Anion gap [Moles/Vol] 13 mmol/L Normal 7-17 [facility] Comment on above: Performed By: #### C HM7, HFP, MGO #### [facility] (DEFAULT) [address] [place] [address] 25732 Chloride [Moles/Vol] 109 mmol/L High 98-108 [facility] Comment on above: Performed By: #### C HM7, HFP, MGO #### [facility] (DEFAULT) [address] [place] [address] 45603 CO2 [Moles/Vol] 21 mmol/L Normal 21-31 [facility] Comment on above: Performed By: #### Chinedu HM7, HFP, MGO #### [facility] (DEFAULT) [address] [place] [address] 82431 Creatinine [Mass/Vol] 1.04 mg/dL Normal 0.70-1.30 [facility] Comment on above: Performed By: #### C HM7, HFP, MGO #### [facility] (DEFAULT) [address] [place] [address] 99252 GFR/1.73 sq M.predicted among non-blacks MDRD (S/P/Bld) [Vol rate/Area] 86 mL/min/{1.73_m2} Normal >=60 [facility] Comment on above: Result Comment: Repo rted eGFR is based on the CKD-EPI 2020 equation using creatinine, age, and sex. Performed By: #### C HM7, HFP, MGO #### [facility] (DEFAULT) [address] [place] [address] 75306 Glucose [Mass/Vol] 82 mg/dL Normal 70-99 [facility] Comment on above: Performed By: #### C HM7, HFP, MGO #### [facility] (DEFAULT) [address] [place] [address] 16231 Osmolality [Osmolality] 292 mosm/kg Normal 278-305 [facility] Comment on above: Performed By: #### C HM7, HFP, MGO #### [facility] (DEFAULT) [address] [place] [address] 14321 Potassium [Moles/Vol] 4.4 mmol/L Normal 3.5-5.0 [facility] Comment on above: Performed By: #### C HM7, HFP, MGO #### [facility] (DEFAULT) [address] [place] [address] 45142 Sodium [Moles/Vol] 139 mmol/L Normal 135-145 [facility] Comment on above: Performed By: #### C HM7, HFP, MGO #### [facility] (DEFAULT) [address] [place] [address] 26956 Urea nitrogen [Mass/Vol] 17 mg/dL Normal 7-25 [facility] Comment on above: Performed By: #### C HM7, HFP, MGO #### [facility] (DEFAULT) [address] [place] [address] 04890 Urea nitrogen/Creatinine [Mass ratio] 16 mg/mg Normal [facility] Comment on above: Performed By: #### C HM7, HFP, MGO #### [facility] (DEFAULT) [address] [place] [address] ABDOMEN/PELVIS WITHOUT CO NTRASTon 01-17-2024 CT [...] unremarkable. Kidneys: Severe atrophy of the bilateral [place] kidney is without hydronephrosis. Right lower quadrant [...] middle lobe. Trace left pleural effusion. Normal [facility] CT Abdomen and Pelvis WO geoff [...] unremarkable. Kidneys: Severe atrophy of the bilateral [place] kidney is without hydronephrosis. Right lower quadrant [...] unremarkable. Kidneys: Severe atrophy of the bilateral [place] kidney is without hydronephrosis. Right lower quadrant [...] the middle lobe. Trace left pleural effusion. [facility] Radiology Study observation (narrative) [facility] HEPATIC FUNCTION PANELon Albumin [Mass/Vol] 3.5 g/dL 3.5 - 5.0 g/dL [facility] ALP [Catalytic activity/Vol] 73 U/L 32 - 126 U/L [facility] ALT [Catalytic activity/Vol] 7 U/L Low 10 - 52 U/L [facility] AST [Catalytic activity/Vol] 25 U/L 10 - 39 U/L [facility] Bilirubin [Mass/Vol] 1.8 mg/dL High NINF - 1.5 mg/dL [facility] Bilirubin.direct [Mass/Vol] 0.3 mg/dL High NINF - 0.3 mg/dL [facility] Protein [Mass/Vol] 6.0 g/dL Low 6.4 - 8.3 g/dL [facility] Albumin [Mass/Vol] 3.5 g/dL Normal 3.5-5.0 [facility] Comment on above: Performed By: #### C HM7, HFP, MGO #### [facility] (DEFAULT) [address] [place] [address] 68635 ALP [Catalytic activity/Vol] 73 U/L Normal 32-126 [facility] Comment on above: Performed By: #### C HM7, HFP, MGO #### [facility] (DEFAULT) [address] [place] [address] 44034 ALT [Catalytic activity/Vol] 7 U/L Low 10-52 [facility] Comment on above: Performed By: #### C HM7, HFP, MGO #### [facility] (DEFAULT) [address] [place] [address] 73516 AST [Catalytic activity/Vol] 25 U/L Normal 10-39 [facility] Comment on above: Performed By: #### C HM7, HFP, MGO #### [facility] (DEFAULT) [address] [place] [address] 05413 Bilirubin [Mass/Vol] 1.8 mg/dL High <1.5 [facility] Comment on above: Performed By: #### C HM7, HFP, MGO #### [facility] (DEFAULT) [address] [place] [address] 18201 Bilirubin.indirect [Mass/Vol] 0.3 mg/dL High <0.3 [facility] Comment on above: Performed By: #### C HM7, HFP, MGO #### [facility] (DEFAULT) [address] [place] [address] 72473 Protein [Mass/Vol] 6.0 g/dL Low 6.4-8.3 [facility] Comment on above: Performed By: #### C HM7, HFP, MGO #### [facility] (DEFAULT) [address] [place] [address] 57145 HISTOPLASMA AND BLASTOMYCES ANTIGEN, ENZYME IMMUNOASSAY, SERMon 01-17-2024 Histoplasma/Blastomyce s Ag Result Not detected Normal Not Detected [facility] Comment on above: Result Comment: No a ntigen from Histoplasma or Blastomyces detected. False negative results may occur depending on extent of disease, and/or site of infection. Repeat testing on a new specimen if clinically indicated. Performed By: #### C Tray, CHM7, TAVO, IPB, MGO #### [facility] (DEFAULT) [address] [place] [address] 16840 Histoplasma/Blastomyce s Ag Value Not detected Normal [facility] Comment on above: Result Comment: ADDITIONAL INFORMATION This test was developed and its performance characteristics determined by [facility] in a manner consistent with CLIA requirements. This test has not been cleared or approved by the U.S. Food and Drug Administration. Test Performed by: [address] [place] [address] Cotton Buyer: Rosendo Bose M.D. Ph.D.; CLIA# [id number] Performed By: #### C Tray, CHM7, TAVO, IPB, MGO #### [facility] (DEFAULT) [address] [address] MAGNESIUMon 01-17-2024 Interpretation and review of laboratory results Normal [facility] Magnesium [Mass/Vol] 1.7 mg/dL 1.6 - 2 .6 mg/dL [facility] Magnesium [Mass/Vol] 1.7 mg/dL Normal 1.6-2.6 [facility] Comment on above: Performed By: #### C HM7, HFP, MGO #### [facility] (DEFAULT) [address] [place] [address] 59889 No Panel Informationon 01-17 Interpretation and review of laboratory results Abnormal [facility] PT,INR,PTTon 01-17-2024 aPTT Coag (PPP) [Time] 29.9 s [facility] INR Coag (Bld) [Relative time] 1.1 {INR} 0.9 - 1.1 [facility] Interpretation and review of laboratory results Abnormal [facility] PT Coag (PPP) [Time] 14.5 s High [facility] aPTT Coag (Bld) [Time] 29.9 s Normal 24.0-34.3 [facility] Comment on above: Performed By: #### C HM7, HFP, MGO #### [facility] (DEFAULT) [address] [place] [address] 39108 INR Coag (PPP) [Relative time] 1.1 {INR} Normal 0.9-1.1 [facility] Comment on above: Performed By: #### Chinedu HMJessica, HFP, MGO #### [facility] (DEFAULT) [address] [place] [address] 02148 PT Coag (PPP) [Time] 14.5 s High 11.9-14.2 [facility] Comment on above: Performed By: #### C HM7, HFP, MGO #### [facility] (DEFAULT) [address] [place] [address] 35551 B-TYPE NATRIURETIC PEPTIDE ( BRAIN)on 01-16-2024 Interpretation and review of laboratory results Abnormal [facility] Natriuretic peptide B (Bld) [Mass/Vol] 212 pg/mL High 0 - 100 pg/mL [facility] Natriuretic peptide B (Bld) [Mass/Vol] 212 pg/mL High 0-100 [facility] Comment on above: Performed By: #### Chinedu HM7, HFP, MGO #### [facility] (DEFAULT) [address] [place] [address] 56515 CALCIUMon 01-16-2024 Calcium [Mass/Vol] 8.5 mg/dL Low 8.6 - 10. 5 mg/dL [facility] Calcium [Mass/Vol] 8.5 mg/dL Low 8.6-10.5 [facility] Comment on above: Performed By: #### C A, CHM7, HFP, IPB, MGO #### [facility] (DEFAULT) [address] [address] DARYL AURIS SCREEN BY PCRo n 01-16-2024 Daryl auris Screen by PCR Not detected Normal Not Detected [facility] Comment on above: Order Comment: This test was performed using a real-time PCR assay. This test was developed, and its performance characteristics determined by [facility] at [facility]. It has not been cleared or approved by the FDA. The laboratory is regulated under CLIA as qualified to perform high-complexity testing. This test is used for clinical purposes. It should not be regarded as investigational or for research. Performed By: #### C HM7, HFP, MGO #### [facility] (DEFAULT) [address] [address] CBC AND ELECTRONIC DIFFon Basophils (Bld) [#/Vol] K/uL 0.00 - 0.09 K/uL [facility] Basophils/100 WBC (Bld) 0.6 % [facility] Differential cell count method Nom (Bld) Electronic Differential [facility] Eosinophils (Bld) [#/Vol] 0.09 10*3/uL 0.00 - 0.48 K/uL [facility] Eosinophils/100 WBC (Bld) 2.5 % [facility] Erythrocyte distribution width (RBC) [Ratio] 14.0 % 10.9 - 14.3 % [facility] Hematocrit (Bld) [Volume fraction] 37.4 % Low 39.6 - 48.8 % [facility] Hemoglobin (Bld) [Mass/Vol] 12.1 g/dL Low 13.4 - 16.8 g/dL [facility] Immature granulocytes (Bld) [#/Vol] K/uL NINF - 0.07 K/uL [facility] Immature granulocytes/100 WBC (Bld) 0.3 % [facility] Interpretation and review of laboratory results Abnormal [facility] Lymphocytes (Bld) [#/Vol] 1.16 10*3/uL 0.83 - 3.57 K/uL [facility] Lymphocytes/100 WBC (Bld) 32.0 % [facility] MCH (RBC) [Entitic mass] 28.4 pg 26.1 - 33.3 pg [facility] MCHC (RBC) [Mass/Vol] 32.4 g/dL 31.9 - 36.5 g/dL [facility] MCV (RBC) [Entitic vol] 87.8 fL 79.0 - 94.5 fL [facility] Monocytes (Bld) [#/Vol] 0.43 10*3/uL 0.24 - 0.93 K/uL [facility] Monocytes/100 WBC (Bld) 11.9 % [facility] Neutrophils (Bld) [#/Vol] 1.91 10*3/uL 1.57 - 6.19 K/uL [facility] Nucleated RBC/100 WBC (Bld) [Ratio] 0.0 % NINF [facility] Platelet mean volume (Bld) [Entitic vol] 10.1 fL 8.7 - 12.3 fL [facility] Platelets (Bld) [#/Vol] 155 10*3/uL 146 - 337 K/uL [facility] RBC (Bld) [#/Vol] 4.26 10*6/uL Low [facility] Segmented neutrophils/100 WBC (Bld) 52.7 % [facility] WBC (Bld) [#/Vol] 3.62 10*3/uL Low 3.73 - 10. 10 K/uL [facility] Abs Baso Auto < Normal 0.00-0.09 [facility] Comment on above: Performed By: #### C HM7, HFP, MGO #### [facility] (DEFAULT) [address] [place] [address] 74054 Basophils/100 WBC (Bld) 0.6 % Normal [facility] Comment on above: Performed By: #### C HM7, HFP, MGO #### [facility] (DEFAULT) [address] [place] [address] 84110 DIFF STATUS Electronic Differential Normal [facility] Comment on above: Performed By: #### C HM7, HFP, MGO #### [facility] (DEFAULT) [address] [place] [address] 59775 Eosinophils (Bld) [#/Vol] 0.09 10*3/uL Normal 0.00-0.48 [facility] Comment on above: Performed By: #### C HM7, HFP, MGO #### [facility] (DEFAULT) [address] [place] [address] 96109 Eosinophils/100 WBC (Bld) 2.5 % Normal [facility] Comment on above: Performed By: #### C HM7, HFP, MGO #### [facility] (DEFAULT) [address] [place] [address] 35236 Hematocrit (Bld) [Volume fraction] 37.4 % Low 39.6-48.8 [facility] Comment on above: Performed By: #### C HM7, HFP, MGO #### [facility] (DEFAULT) [address] [place] [address] 63144 Hemoglobin (Bld) [Mass/Vol] 12.1 g/dL Low 13.4-16.8 [facility] Comment on above: Performed By: #### C HM7, HFP, MGO #### [facility] (DEFAULT) [address] [place] [address] 48878 Immature Grans % 0.3 % Normal [facility] Comment on above: Performed By: #### C HM7, HFP, MGO #### [facility] (DEFAULT) [address] [place] [address] 31156 Immature Grans Absolute < Normal <=0.07 [facility] Comment on above: Performed By: #### C HM7, HFP, MGO #### [facility] (DEFAULT) [address] [place] [address] 22897 Lymphocytes (Bld) [#/Vol] 1.16 10*3/uL Normal 0.83-3.57 [facility] Comment on above: Performed By: #### C HM7, HFP, MGO #### [facility] (DEFAULT) [address] [place] [address] 71857 Lymphocytes/100 WBC (Bld) 32.0 % Normal [facility] Comment on above: Performed By: #### C HM7, HFP, MGO #### [facility] (DEFAULT) [address] [place] [address] 26570 MCV (RBC) [Entitic vol] 87.8 fL Normal 79.0-94.5 [facility] Comment on above: Performed By: #### C HM7, HFP, MGO #### [facility] (DEFAULT) [address] [place] [address] 83414 Mean Cell Hgb 28.4 pg Normal 26.1-33.3 [facility] Comment on above: Performed By: #### C HM7, HFP, MGO #### [facility] (DEFAULT) [address] [place] [address] 43140 Mean Cell Hgb Conc 32.4 g/dL Normal 31.9-36.5 [facility] Comment on above: Performed By: #### C HM7, HFP, MGO #### [facility] (DEFAULT) [address] [place] [address] 53737 Monocytes (Bld) [#/Vol] 0.43 10*3/uL Normal 0.24-0.93 [facility] Comment on above: Performed By: #### C HM7, HFP, MGO #### [facility] (DEFAULT) [address] [place] [address] 47730 Monocytes/100 WBC (Bld) 11.9 % Normal [facility] Comment on above: Performed By: #### C HM7, HFP, MGO #### [facility] (DEFAULT) [address] [place] [address] 58543 Nucleated RBC 0.0 /100 WBC Normal <=0.2 [facility] Comment on above: Performed By: #### Chinedu HM7, HFP, MGO #### [facility] (DEFAULT) [address] [place] [address] 38289 Platelet mean volume (Bld) [Entitic vol] 10.1 fL Normal 8.7-12.3 [facility] Comment on above: Performed By: #### Chinedu HM7, HFP, MGO #### [facility] (DEFAULT) [address] [place] [address] 38898 Platelets (Bld) [#/Vol] 155 10*3/uL Normal 146-337 [facility] Comment on above: Performed By: #### Chinedu HM7, HFP, MGO #### [facility] (DEFAULT) [address] [place] [address] 81215 RBC (Bld) [#/Vol] 4.26 10*6/uL Low 4.38-5.83 [facility] Comment on above: Performed By: #### Chinedu HM7, HFP, MGO #### [facility] (DEFAULT) [address] [place] [address] 81213 RBC Distribution 14.0 % Normal 10.9-14.3 [facility] Comment on above: Performed By: #### Chinedu HM7, HFP, MGO #### [facility] (DEFAULT) [address] [place] [address] 96977 Segs + Bands Auto 52.7 % Normal [facility] Comment on above: Performed By: #### Chinedu HM7, HFP, MGO #### [facility] (DEFAULT) [address] [place] [address] 49248 Segs + Bands,Absolute Auto 1.91 K/uL Normal 1.57-6.19 [facility] Comment on above: Performed By: #### Chinedu HM7, HFP, MGO #### [facility] (DEFAULT) [address] [place] [address] WBC (Bld) [#/Vol] 3.62 10*3/uL Low 3.73-10.10 [facility] Comment on above: Performed By: #### C HM7, HFP, MGO #### [facility] (DEFAULT) [address] [place] [address] CHEM 7 (LYTES,BUN,CREA,GLUC) on 01-16-2024 Anion gap [Moles/Vol] 11 mmol/L 7 - 17 mmol/L [facility] Chloride [Moles/Vol] 108 mmol/L 98 - 10 8 mmol/L [facility] CO2 [Moles/Vol] 24 mmol/L 21 - 31 mmol/L [facility] Creatinine [Mass/Vol] 1.04 mg/dL 0.70 - 1.30 mg/dL [facility] eGFR, CKD-EPI, Male 86 - PINF [facility] Comment on above: Reported eGFR is bas ed on the CKD-EPI 2020 equation using creatinine, age, and sex. Glucose [Mass/Vol] 95 mg/dL 70 - 99 mg/dL [facility] Osmolality Calc [Osmolality] 293 [facility] Potassium [Moles/Vol] 4.0 mmol/L 3.5 - 5.0 mmol/L [facility] Sodium [Moles/Vol] 139 mmol/L 135 - 145 mmol/L [facility] Urea nitrogen [Mass/Vol] 19 mg/dL 7 - 25 mg/dL [facility] Urea nitrogen/Creatinine [Mass ratio] 18 mg/mg [facility] Anion gap [Moles/Vol] 11 mmol/L Normal 7-17 [facility] Comment on above: Performed By: #### C A, CHM7, HFP, IPB, MGO #### [facility] (DEFAULT) [address] [place] [address] Chloride [Moles/Vol] 108 mmol/L Normal 98-108 [facility] Comment on above: Performed By: #### C A, CHM7, HFP, IPB, MGO #### [facility] (DEFAULT) [address] [place] [address] 87312 CO2 [Moles/Vol] 24 mmol/L Normal 21-31 [facility] Comment on above: Performed By: #### C A, CHM7, HFP, IPB, MGO #### [facility] (DEFAULT) [address] [place] [address] 29202 Creatinine [Mass/Vol] 1.04 mg/dL Normal 0.70-1.30 [facility] Comment on above: Performed By: #### C A, CHM7, HFP, IPB, MGO #### [facility] (DEFAULT) [address] [place] [address] 63420 GFR/1.73 sq M.predicted among non-blacks MDRD (S/P/Bld) [Vol rate/Area] 86 mL/min/{1.73_m2} Normal >=60 [facility] Comment on above: Result Comment: Repo rted eGFR is based on the CKD-EPI 2020 equation using creatinine, age, and sex. Performed By: #### C A, CHM7, HFP, IPB, MGO #### [facility] (DEFAULT) [address] [place] [address] 30144 Glucose [Mass/Vol] 95 mg/dL Normal 70-99 [facility] Comment on above: Performed By: #### C A, CHM7, HFP, IPB, MGO #### [facility] (DEFAULT) [address] [place] [address] 65483 Osmolality [Osmolality] 293 mosm/kg Normal 278-305 [facility] Comment on above: Performed By: #### C A, CHM7, HFP, IPB, MGO #### [facility] (DEFAULT) [address] [place] [address] 26309 Potassium [Moles/Vol] 4.0 mmol/L Normal 3.5-5.0 [facility] Comment on above: Performed By: #### C A, CHM7, HFP, IPB, MGO #### [facility] (DEFAULT) [address] [place] [address] 18150 Sodium [Moles/Vol] 139 mmol/L Normal 135-145 [facility] Comment on above: Performed By: #### C A, CHM7, HFP, IPB, MGO #### [facility] (DEFAULT) [address] [place] [address] 55829 Urea nitrogen [Mass/Vol] 19 mg/dL Normal 7-25 [facility] Comment on above: Performed By: #### C A, CHM7, HFP, IPB, MGO #### [facility] (DEFAULT) [address] [place] [address] 91205 Urea nitrogen/Creatinine [Mass ratio] 18 mg/mg Normal [facility] Comment on above: Performed By: #### C A, CHM7, HFP, IPB, MGO #### [facility] (DEFAULT) [address] [place] [address] 23157 D-DIMER,QUANTITATIVEOrdered By: Shaji Kelly on 01-16-2024 Fibrin D-dimer FEU (PPP) [Mass/Vol] 0.67 High [facility] Comment on above: The D-Dimer assay is intended for use in conjuction with a clinical pretest probability (PTP) assessment model to exclude pulmonary embolism (PE) and as an aid in the diagnosis of Deep Vein Thrombosis (DVT) in outpatients suspected of PE or DVT. For the assay in use at [facility] ([facility]), a cutoff of <0.50 mcg/mL has a Negative Predictive Value of 99.7% for exclusion of DVT in low and moderate PTP patients. Interpretation and review of laboratory results Abnormal [facility] D-DIMER,QUANTITATIVEon 01-16 D-Dimer, High Sensitivity 0.67 mcg/mL FEU High <0.50 [facility] Comment on above: Result Comment: The D-Dimer assay is intended for use in conjuction with a clinical pretest probability (PTP) assessment model to exclude pulmonary embolism (PE) and as an aid in the diagnosis of Deep Vein Thrombosis (DVT) in outpatients suspected of PE or DVT. For the assay in use at [facility] ([facility]), a cutoff of <0.50 mcg/mL has a Negative Predictive Value of 99.7% for exclusion of DVT in low and moderate PTP patients. Performed By: #### C HM7, HFP, MGO #### [facility] (DEFAULT) [address] [place] [address] 49959 HEPATIC FUNCTION PANELon Albumin [Mass/Vol] 3.7 g/dL 3.5 - 5.0 g/dL [facility] ALP [Catalytic activity/Vol] 70 U/L 32 - 126 U/L [facility] ALT [Catalytic activity/Vol] 8 U/L Low 10 - 52 U/L [facility] AST [Catalytic activity/Vol] 21 U/L 10 - 39 U/L [facility] Bilirubin [Mass/Vol] 1.9 mg/dL High [facility] [employer] [facility] - 1.5 mg/dL [facility] Bilirubin.direct [Mass/Vol] 0.4 mg/dL High NINF - 0.3 mg/dL [facility] Protein [Mass/Vol] 6.1 g/dL Low 6.4 - 8.3 g/dL [facility] Albumin [Mass/Vol] 3.7 g/dL Normal 3.5-5.0 [facility] Comment on above: Performed By: #### C A, CHM7, HFP, IPB, MGO #### [facility] (DEFAULT) [address] [place] [address] 63308 ALP [Catalytic activity/Vol] 70 U/L Normal 32-126 [facility] Comment on above: Performed By: #### C A, CHM7, HFP, IPB, MGO #### [facility] (DEFAULT) [address] [place] [address] 05738 ALT [Catalytic activity/Vol] 8 U/L Low 10-52 [facility] Comment on above: Performed By: #### C A, CHM7, HFP, IPB, MGO #### [facility] (DEFAULT) [address] [place] [address] 07159 AST [Catalytic activity/Vol] 21 U/L Normal 10-39 [facility] Comment on above: Performed By: #### C A, CHM7, HFP, IPB, MGO #### [facility] (DEFAULT) [address] [place] [address] 53252 Bilirubin [Mass/Vol] 1.9 mg/dL High <1.5 [facility] Comment on above: Performed By: #### C A, CHM7, HFP, IPB, MGO #### [facility] (DEFAULT) [address] [place] [address] 07744 Bilirubin.indirect [Mass/Vol] 0.4 mg/dL High <0.3 [facility] Comment on above: Performed By: #### Chinedu Feliz, CHM7, HFP, IPB, MGO #### [facility] (DEFAULT) [address] [place] [address] 39356 Protein [Mass/Vol] 6.1 g/dL Low 6.4-8.3 [facility] Comment on above: Performed By: #### C A, CHM7, HFP, IPB, MGO #### [facility] (DEFAULT) [address] [place] [address] 67103 MAGNESIUMon 01-16-2024 Magnesium [Mass/Vol] 1.7 mg/dL 1.6 - 2 .6 mg/dL [facility] Magnesium [Mass/Vol] 1.7 mg/dL Normal 1.6-2.6 [facility] Comment on above: Performed By: #### C A, CHM7, HFP, IPB, MGO #### [facility] (DEFAULT) [address] [place] [address] 80455 No Panel Informationon 01-16 Interpretation and review of laboratory results Abnormal [facility] Interpretation and review of laboratory results Normal [facility] PHOSPHATE, INORGANICon 01-16 Phosphate [Mass/Vol] 4.1 mg/dL 2.2 - 4 .6 mg/dL [facility] Phosphorous 4.1 mg/dL Normal 2.2-4.6 [facility] Comment on above: Performed By: #### C A, CHM7, HFP, IPB, MGO #### [facility] (DEFAULT) [address] [place] [address] 66866 PT,INR,PTTon 01-16-2024 aPTT Coag (PPP) [Time] 29.6 s [facility] INR Coag (Bld) [Relative time] 1.2 {INR} High 0.9 - 1.1 [facility] Interpretation and review of laboratory results Abnormal [facility] PT Coag (PPP) [Time] 14.9 s High [facility] aPTT Coag (Bld) [Time] 29.6 s Normal 24.0-34.3 [facility] Comment on above: Performed By: #### C HM7, HFP, MGO #### [facility] (DEFAULT) [address] [place] [address] 05009 INR Coag (PPP) [Relative time] 1.2 {INR} High 0.9-1.1 [facility] Comment on above: Performed By: #### C HM7, HFP, MGO #### [facility] (DEFAULT) [address] [place] [address] PT Coag (PPP) [Time] 14.9 s High 11.9-14.2 [facility] Comment on above: Performed By: #### C HM7, HFP, MGO #### [facility] (DEFAULT) [address] [place] [address] TACROLIMUS LEVEL, TROUGH (WI E DRUG LEVEL)Ordered By: Jimy Castillo on 01-16-2024 Interpretation and review of laboratory results Normal [facility] Tacrolimus (Bld) [Mass/Vol] 5.7 ng/mL Bone Marrow Transplant: 4.0-12.0, Therapeutic: 5.0-15.0 [facility] Method performed is a chemiluminescent microparticle immunoasssay on the [employer]er i2000. The range is based on experience at [facility] and users should be aware that target concentrations vary widely depending on concomitant therapy, time post-transplant, and desired degree of immunosuppression. [facility] TACROLIMUS LEVEL, TROUGH (WI E DRUG LEVEL)on 01-16-2024 Tacrolimus, Trough 5.7 ng/mL Normal Bone Susana ow Transplant: 4.0-12.0, Therapeutic: 5.0-15.0 [facility] Comment on above: Order Comment: Pleas e draw at specified interval PRIOR to dose. Do not hold dose to wait for level. Specimens batched twice per day, (M-F) and once per day weekendsMethod performed is a chemiluminescent microparticle immunoasssay on the [employer] i2000.The range is based on experience at [facility] and users should be aware that target concentrations vary widely depending on concomitant therapy, time post-transplant, and desired degree of immunosuppression. Performed By: #### C A, CHM7, HFP, IPB, MGO #### [facility] (DEFAULT) [address] [place] [address] US ABDOMEN LIVER DOPPLERon 0 01-16-2024 US [...] effusion. Trace right upper quadrant ascites. Normal [facility] US.doppler Abdominal vessels on 01-16-2024 IMPRESSION: [...] pleural effusion. Trace right upper quadrant ascites. [facility] Radiology Study observation (narrative) [facility] US.doppler Abdominal vessels Ordered By: Iona Duran on 01-16-2024 [facility] Work Phone: XR CHEST PA AND [...] Normal IMPRESSION: Moderate right pleural effusion. Normal [facility] XR Chest PA and Lateralon IMPRESSION: [...] IMPRESSION: Moderate right pleural effusion. [facility] Radiology Study observation (narrative) [facility] XR Chest PA and LateralOrder ed By: Daisha Patterson on 01-16-2024 [facility] Work Phone: ALL CBC WITH AUTO DIFFon BASOPHILS ABSOLUTE AUTO 0.0 [facility] Basophils/100 WBC (Bld) 0.5 % 0.2 - 2.0 % [facility] Eosinophils/100 WBC (Bld) 2.8 % 0.9 - 7.0 % [facility] Erythrocyte distribution width (RBC) [Ratio] 13.8 % 11.0 - 15.0 % [facility] Hematocrit (Bld) [Volume fraction] 43.7 % 42.0 - 54.0 % [facility] Hemoglobin (Bld) [Mass/Vol] 14.0 g/dL 14.0 - 18.0 g/dL [facility] IMMATURE GRANULOCYTES ABS AUTO 0.01 [facility] Immature granulocytes/100 WBC (Bld) 0.3 % 0.0 - 0.5 % [facility] LYMPHOCYTES ABSOLUTE AUTO 1.5 [facility] Lymphocytes/100 WBC (Bld) 37.5 % 20.5 - 60.0 % [facility] MCH (RBC) [Entitic mass] 28.4 pg 25.9 - 34.0 pg [facility] MCHC (RBC) [Mass/Vol] 32.0 g/dL 29.9 - 35.2 g/dL [facility] MCV (RBC) [Entitic vol] 88.6 fL 80.0 - 94.0 fL [facility] MONOCYTES ABSOLUTE AUTO 0.5 [facility] Monocytes/100 WBC (Bld) 11.9 % 1.7 - 12.0 % [facility] NEUTROPHILS ABSOLUTE AUTO 1.9 [facility] Neutrophils/100 WBC (Bld) 47.0 % 43.0 - 75.0 % [facility] Platelet mean volume (Bld) [Entitic vol] 10.3 fL 9.5 - 13.5 fL [facility] TBH EO # 0.1 [facility] TB PLT 180 [facility] RBC 4.93 [facility] TB WBC 4.0 [facility] ALL CBC WITH AUTO DIFFon BASOPHILS ABSOLUTE AUTO 0.0 [facility] Basophils/100 WBC (Bld) 0.5 % 0.2 - 2.0 % [facility] Eosinophils/100 WBC (Bld) 2.6 % 0.9 - 7.0 % [facility] Erythrocyte distribution width (RBC) [Ratio] 13.5 % 11.0 - 15.0 % [facility] Hematocrit (Bld) [Volume fraction] 43.8 % 42.0 - 54.0 % [facility] Hemoglobin (Bld) [Mass/Vol] 14.0 g/dL 14.0 - 18.0 g/dL [facility] IMMATURE GRANULOCYTES ABS AUTO 0.00 [facility] Immature granulocytes/100 WBC (Bld) 0.0 % 0.0 - 0.5 % [facility] Interpretation and review of laboratory results Abnormal [facility] LYMPHOCYTES ABSOLUTE AUTO 1.8 [facility] Lymphocytes/100 WBC (Bld) 45.2 % 20.5 - 60.0 % [facility] MCH (RBC) [Entitic mass] 27.9 pg 25.9 - 34.0 pg [facility] MCHC (RBC) [Mass/Vol] 32.0 g/dL 29.9 - 35.2 g/dL [facility] MCV (RBC) [Entitic vol] 87.4 fL 80.0 - 94.0 fL [facility] MONOCYTES ABSOLUTE AUTO 0.4 [facility] Monocytes/100 WBC (Bld) 9.6 % 1.7 - 12.0 % [facility] NEUTROPHILS ABSOLUTE AUTO 1.6 [facility] Neutrophils/100 WBC (Bld) 42.1 % Low 43.0 - 75.0 % [facility] Platelet mean volume (Bld) [Entitic vol] 9.8 fL 9.5 - 13.5 fL [facility] TBH EO # 0.1 [facility] TB PLT 180 [facility] RBC 5.01 [facility] WBC 3.9 Low [facility] CHEM 7 (LYTES,BUN,CREA,GLUC) on 09-11-2023 Anion gap [Moles/Vol] 13 mmol/L 7 - 17 mmol/L [facility] Chloride [Moles/Vol] 111 mmol/L High 98 - 10 8 mmol/L [facility] CO2 [Moles/Vol] 20 mmol/L Low 21 - 31 mmol/L [facility] Creatinine [Mass/Vol] 1.13 mg/dL 0.70 - 1.30 mg/dL [facility] eGFR, CKD-EPI, Male 78 - PINF [facility] Glucose [Mass/Vol] 109 mg/dL High 70 - 99 mg/dL [facility] Interpretation and review of laboratory results Abnormal [facility] Osmolality Calc [Osmolality] 295 [facility] Potassium [Moles/Vol] 4.3 mmol/L 3.5 - 5.0 mmol/L [facility] Sodium [Moles/Vol] 140 mmol/L 135 - 145 mmol/L [facility] Urea nitrogen [Mass/Vol] 16 mg/dL 7 - 25 mg/dL [facility] Urea nitrogen/Creatinine [Mass ratio] 14 mg/mg [facility] Anion gap [Moles/Vol] 13 mmol/L Normal 7-17 [facility] Comment on above: Performed By: #### C A, CHM7, HFP, IPB, MGO #### [facility] (DEFAULT) [address] [place] [address] 29614 Chloride [Moles/Vol] 111 mmol/L High 98-108 [facility] Comment on above: Performed By: #### C A, CHM7, HFP, IPB, MGO #### [facility] (DEFAULT) [address] [place] [address] 36167 CO2 [Moles/Vol] 20 mmol/L Low 21-31 [facility] Comment on above: Performed By: #### C A, CHM7, HFP, IPB, MGO #### [facility] (DEFAULT) [address] [place] [address] 03225 Creatinine [Mass/Vol] 1.13 mg/dL Normal 0.70-1.30 [facility] Comment on above: Performed By: #### C A, CHM7, HFP, IPB, MGO #### [facility] (DEFAULT) [address] [place] [address] 32765 GFR/1.73 sq M.predicted among non-blacks MDRD (S/P/Bld) [Vol rate/Area] 78 mL/min/{1.73_m2} Normal >=60 [facility] Comment on above: Result Comment: Repo rted eGFR is based on the CKD-EPI 2020 equation using creatinine, age, and sex. Performed By: #### C A, CHM7, HFP, IPB, MGO #### [facility] (DEFAULT) [address] [place] [address] 98152 Glucose [Mass/Vol] 109 mg/dL High 70-99 [facility] Comment on above: Performed By: #### C A, CHM7, HFP, IPB, MGO #### [facility] (DEFAULT) [address] [place] [address] 32827 Osmolality [Osmolality] 295 mosm/kg Normal 278-305 [facility] Comment on above: Performed By: #### C A, CHM7, HFP, IPB, MGO #### [facility] (DEFAULT) [address] [place] [address] 06524 Potassium [Moles/Vol] 4.3 mmol/L Normal 3.5-5.0 [facility] Comment on above: Performed By: #### C Tray, CHM7, HFP, IPB, MGO #### [facility] (DEFAULT) [address] [place] [address] 30603 Sodium [Moles/Vol] 140 mmol/L Normal 135-145 [facility] Comment on above: Performed By: #### C A, CHM7, HFP, IPB, MGO #### [facility] (DEFAULT) [address] [place] [address] 21648 Urea nitrogen [Mass/Vol] 16 mg/dL Normal 7-25 [facility] Comment on above: Performed By: #### C A, CHM7, HFP, IPB, MGO #### [facility] (DEFAULT) [address] [place] [address] 37363 Urea nitrogen/Creatinine [Mass ratio] 14 mg/mg Normal [facility] Comment on above: Performed By: #### C A, CHM7, HFP, IPB, MGO #### [facility] (DEFAULT) [address] [place] [address] GLUCOSE POCon 09-11-2023 Glucose [Mass/Vol] 108 mg/dL High 70 - 99 mg/dL [facility] Interpretation and review of laboratory results Abnormal [facility] POC Sample Type CAPBL [facility] Legionella sp identified Org specific cx Nom (Unsp spec)on 09-11-2023 Bacteria identified Cx Nom (Unsp spec) NO GROWTH DAY 7 OF 7 [facility] MAGNESIUMon 09-11-2023 Interpretation and review of laboratory results Normal [facility] Magnesium [Mass/Vol] 1.6 mg/dL 1.6 - 2 .6 mg/dL [facility] Magnesium [Mass/Vol] 1.6 mg/dL Normal 1.6-2.6 [facility] Comment on above: Performed By: #### C A, CHM7, HFP, IPB, MGO #### [facility] (DEFAULT) [address] [place] [address] 36938 No Panel Informationon 09-11 [facility] TACROLIMUS LEVEL, TROUGH (WI E DRUG LEVEL)on 09-11-2023 Interpretation and review of laboratory results Normal [facility] Tacrolimus (Bld) [Mass/Vol] 11.5 ng/mL [facility] Tacrolimus, Trough 11.5 ng/mL Normal Bone Susana ow Transplant: 4.0-12.0, Therapeutic: 5.0-15.0 [facility] Comment on above: Order Comment: Pleas e draw at specified interval PRIOR to dose. Do not hold dose to wait for level. Specimens batched twice per day, (M-F) and once per day weekendsMethod performed is a chemiluminescent microparticle immunoasssay on the [employer] Spot Worker i2000.The range is based on experience at [facility] and users should be aware that target concentrations vary widely depending on concomitant therapy, time post-transplant, and desired degree of immunosuppression. Performed By: #### C NATHANIEL Feliz, TAVO, IPB, MGO #### [facility] (DEFAULT) [address] [place] [address] CBC,PLATELETSon 09-10-2023 Erythrocyte distribution width (RBC) [Ratio] 13.9 % 10.9 - 14.3 % [facility] Hematocrit (Bld) [Volume fraction] 40.0 % 39.6 - 48.8 % [facility] Hemoglobin (Bld) [Mass/Vol] 12.7 g/dL Low 13.4 - 16.8 g/dL [facility] Interpretation and review of laboratory results Abnormal [facility] MCH (RBC) [Entitic mass] 27.3 pg 26.1 - 33.3 pg [facility] MCHC (RBC) [Mass/Vol] 31.8 g/dL Low 31.9 - 36.5 g/dL [facility] MCV (RBC) [Entitic vol] 86.0 fL 79.0 - 94.5 fL [facility] Platelet mean volume (Bld) [Entitic vol] 9.5 fL 8.7 - 12.3 fL [facility] Platelets (Bld) [#/Vol] 225 10*3/uL 146 - 337 K/uL [facility] RBC (Bld) [#/Vol] 4.65 10*6/uL [facility] WBC (Bld) [#/Vol] 6.52 10*3/uL 3.73 - 10. 10 K/uL [facility] Hematocrit (Bld) [Volume fraction] 40.0 % Normal 39.6-48.8 [facility] Comment on above: Performed By: #### NATHANIEL Willis, TAVO, IPB, MGO #### [facility] (DEFAULT) [address] [place] [address] Hemoglobin (Bld) [Mass/Vol] 12.7 g/dL Low 13.4-16.8 [facility] Comment on above: Performed By: #### C A, CHM7, HFP, IPB, MGO #### [facility] (DEFAULT) [address] [place] [address] 76289 MCV (RBC) [Entitic vol] 86.0 fL Normal 79.0-94.5 [facility] Comment on above: Performed By: #### C A, CHM7, HFP, IPB, MGO #### [facility] (DEFAULT) [address] [place] [address] 98538 Mean Cell Hgb 27.3 pg Normal 26.1-33.3 [facility] Comment on above: Performed By: #### C A, CHM7, HFP, IPB, MGO #### [facility] (DEFAULT) [address] [place] [address] 83993 Mean Cell Hgb Conc 31.8 g/dL Low 31.9-36.5 [facility] Comment on above: Performed By: #### C A, CHM7, HFP, IPB, MGO #### [facility] (DEFAULT) [address] [place] [address] 03504 Platelet mean volume (Bld) [Entitic vol] 9.5 fL Normal 8.7-12.3 [facility] Comment on above: Performed By: #### C A, CHM7, HFP, IPB, MGO #### [facility] (DEFAULT) [address] [place] [address] 94213 Platelets (Bld) [#/Vol] 225 10*3/uL Normal 146-337 [facility] Comment on above: Performed By: #### C A, CHM7, HFP, IPB, MGO #### [facility] (DEFAULT) [address] [place] [address] 38151 RBC (Bld) [#/Vol] 4.65 10*6/uL Normal 4.38-5.83 [facility] Comment on above: Performed By: #### C A, CHM7, HFP, IPB, MGO #### [facility] (DEFAULT) [address] [place] [address] RBC Distribution 13.9 % Normal 10.9-14.3 [facility] Comment on above: Performed By: #### C A, CHM7, HFP, IPB, MGO #### [facility] (DEFAULT) [address] [place] [address] WBC (Bld) [#/Vol] 6.52 10*3/uL Normal 3.73-10.10 [facility] Comment on above: Performed By: #### C A, CHM7, HFP, IPB, MGO #### [facility] (DEFAULT) [address] [place] [address] CHEM 7 (LYTES,BUN,CREA,GLUC) on 09-10-2023 Anion gap [Moles/Vol] 13 mmol/L 7 - 17 mmol/L [facility] Chloride [Moles/Vol] 111 mmol/L High 98 - 10 8 mmol/L [facility] CO2 [Moles/Vol] 20 mmol/L Low 21 - 31 [facility] Creatinine [Mass/Vol] 1.27 mg/dL 0.70 - 1.30 mg/dL [facility] eGFR, CKD-EPI, [facility] 68 - [facility]F [facility] Glucose [Mass/Vol] 100 mg/dL High 70 - 99 mg/dL [facility] Osmolality Calc [Osmolality] 293 [facility] Potassium [Moles/Vol] 4.4 mmol/L 3.5 - 5.0 mmol/L [facility] Sodium [Moles/Vol] 140 mmol/L 135 - 145 mmol/L [facility] Urea nitrogen [Mass/Vol] 12 mg/dL 7 - 25 mg/dL [facility] Urea nitrogen/Creatinine [Mass ratio] 9 mg/[facility] Anion gap [Moles/Vol] 13 mmol/L Normal 7-17 [facility] Comment on above: Performed By: #### C HM7, HFP, MGO #### [facility] (DEFAULT) [address] [place] [address] 18742 Chloride [Moles/Vol] 111 mmol/L High 98-108 [facility] Comment on above: Performed By: #### C HM7, HFP, MGO #### [facility] (DEFAULT) [address] [place] [address] 18157 CO2 [Moles/Vol] 20 mmol/L Low 21-31 [facility] Comment on above: Performed By: #### C HM7, HFP, MGO #### [facility] (DEFAULT) [address] [place] [address] 23647 Creatinine [Mass/Vol] 1.27 mg/dL Normal 0.70-1.30 [facility] Comment on above: Performed By: #### C HM7, HFP, MGO #### [facility] (DEFAULT) [address] [place] [address] 73308 GFR/1.73 sq M.predicted among non-blacks MDRD (S/P/Bld) [Vol rate/Area] 68 mL/min/{1.73_m2} Normal >=60 [facility] Comment on above: Result Comment: Repo rted eGFR is based on the CKD-EPI 2020 equation using creatinine, age, and sex. Performed By: #### C HM7, HFP, MGO #### [facility] (DEFAULT) [address] [place] [address] 10413 Glucose [Mass/Vol] 100 mg/dL High 70-99 [facility] Comment on above: Performed By: #### C HM7, HFP, MGO #### [facility] (DEFAULT) [address] [place] [address] 87419 Osmolality [Osmolality] 293 mosm/kg Normal 278-305 [facility] Comment on above: Performed By: #### C HM7, HFP, MGO #### [facility] (DEFAULT) [address] [place] [address] 09407 Potassium [Moles/Vol] 4.4 mmol/L Normal 3.5-5.0 [facility] Comment on above: Performed By: #### C JASMYNE, TAVO, MGO #### [facility] (DEFAULT) [address] [place] [address] Sodium [Moles/Vol] 140 mmol/L Normal 135-145 [facility] Comment on above: Performed By: #### Chinedu HMJessica, HFP, MGO #### [facility] (DEFAULT) [address] [place] [address] Urea nitrogen [Mass/Vol] 12 mg/dL Normal 7-25 [facility] Comment on above: Performed By: #### Chinedu MEDLEY, HFP, MGO #### [facility] (DEFAULT) [address] [place] [address] Urea nitrogen/Creatinine [Mass ratio] 9 mg/mg Normal [facility] Comment on above: Performed By: #### Chinedu HMJessica, HFP, MGO #### [facility] (DEFAULT) [address] [place] [address] HEPATIC FUNCTION PANELon Albumin [Mass/Vol] 3.3 g/dL Low 3.5 - 5.0 g/dL [facility] ALP [Catalytic activity/Vol] 143 U/L High 32 - 126 U/L [facility] ALT [Catalytic activity/Vol] 28 U/L 10 - 52 U/L [facility] AST [Catalytic activity/Vol] 29 U/L 10 - 39 U/L [facility] Bilirubin [Mass/Vol] 0.9 mg/dL [facility] - 1.5 mg/dL [facility] Bilirubin.direct [Mass/Vol] 0.2 mg/dL NINF - 0.3 mg/dL [facility] Protein [Mass/Vol] 6.8 g/dL 6.4 - 8.3 g/dL [facility] Albumin [Mass/Vol] 3.3 g/dL Low 3.5-5.0 [facility] Comment on above: Performed By: #### C HM7, HFP, MGO #### [facility] (DEFAULT) [address] [place] [address] 01732 ALP [Catalytic activity/Vol] 143 U/L High 32-126 [facility] Comment on above: Performed By: #### C HM7, HFP, MGO #### [facility] (DEFAULT) [address] [address] [place] [id number] ALT [Catalytic activity/Vol] 28 U/L Normal 10-52 [facility] Comment on above: Performed By: #### C HM7, HFP, MGO #### [facility] (DEFAULT) [address] [place] [id number] AST [Catalytic activity/Vol] 29 U/L Normal 10-39 [facility] Comment on above: Performed By: #### Chinedu HM7, HFP, MGO #### [facility] (DEFAULT) [address] [place] [address] [id number] Bilirubin [Mass/Vol] 0.9 mg/dL Normal <1.5 [facility] Comment on above: Performed By: #### C HM7, HFP, MGO #### [facility] (DEFAULT) [address] [place] [id number] Bilirubin.indirect [Mass/Vol] 0.2 mg/dL Normal <0.3 [facility] Comment on above: Performed By: #### Chinedu HM7, HFP, MGO #### [facility] (DEFAULT) [address] [place] [address] [id number] Protein [Mass/Vol] 6.8 g/dL Normal 6.4-8.3 [facility] Comment on above: Performed By: #### C HM7, HFP, MGO #### [facility] (DEFAULT) [address] [place] [address] [id number] MAGNESIUMon 09-10-2023 Interpretation and review of laboratory results Normal [facility] Magnesium [Mass/Vol] 1.9 mg/dL 1.6 - 2 .6 mg/dL [facility] Magnesium [Mass/Vol] 1.9 mg/dL Normal 1.6-2.6 [facility] Comment on above: Performed By: #### C TAVO MEDLEY MGO #### [facility] (DEFAULT) [address] [id number] No Panel Informationon 09-10 Interpretation and review of laboratory results Abnormal [facility] TACROLIMUS LEVEL, TROUGH (WI E DRUG LEVEL)Ordered By: Jimy Castillo on 09-10-2023 Interpretation and review of laboratory results Normal [facility] Tacrolimus (Bld) [Mass/Vol] 11.8 ng/mL [facility] TACROLIMUS LEVEL, TROUGH (WI E DRUG LEVEL)on 09-10-2023 Tacrolimus, Trough 11.8 ng/mL Normal Bone Susana ow Transplant: 4.0-12.0, Therapeutic: 5.0-15.0 [facility] Comment on above: Order Comment: Pleas e draw at specified interval PRIOR to dose. Do not hold dose to wait for level. Specimens batched twice per day, (M-F) and once per day weekendsMethod performed is a chemiluminescent microparticle immunoasssay on the [employer] i2000.The range is based on experience at [facility] and users should be aware that target concentrations vary widely depending on concomitant therapy, time post-transplant, and desired degree of immunosuppression. Performed By: #### C TAVO MEDLEY MGO #### [facility] (DEFAULT) [address] [address] CHEM 7 (LYTES,BUN,CREA,GLUC) on 09-09-2023 Anion gap [Moles/Vol] 14 mmol/L 7 - 17 mmol/L [facility] Chloride [Moles/Vol] 113 mmol/L High 98 - 10 8 mmol/L [facility] CO2 [Moles/Vol] 18 mmol/L Low 21 - 31 mmol/L [facility] Creatinine [Mass/Vol] 1.03 mg/dL 0.70 - 1.30 mg/dL [facility] eGFR, CKD-EPI, Male 87 - PINF [facility] Glucose [Mass/Vol] 106 mg/dL High 70 - 99 mg/dL [facility] Interpretation and review of laboratory results Abnormal [facility] Osmolality Calc [Osmolality] 294 [facility] Potassium [Moles/Vol] 4.0 mmol/L 3.5 - 5.0 mmol/L [facility] Sodium [Moles/Vol] 141 mmol/L 135 - 145 mmol/L [facility] Urea nitrogen [Mass/Vol] 10 mg/dL 7 - 25 mg/dL [facility] Urea nitrogen/Creatinine [Mass ratio] 10 mg/mg [facility] MAGNESIUMon 09-09-2023 Magnesium [Mass/Vol] 1.6 mg/dL 1.6 - 2 .6 mg/dL [facility] No Panel Informationon 09-09 Interpretation and review of laboratory results Normal [facility] PHOSPHATE, INORGANICon 09-09 Phosphate [Mass/Vol] 3.8 mg/dL 2.2 - 4 .6 mg/dL [facility] TACROLIMUS LEVEL, TROUGH (WI E DRUG LEVEL)on 09-09-2023 Interpretation and review of laboratory results Normal [facility] Tacrolimus (Bld) [Mass/Vol] 9.2 ng/mL [facility] CBC,PLATELETSon 09-08-2023 Erythrocyte distribution width (RBC) [Ratio] 13.6 % 10.9 - 14.3 % [facility] Hematocrit (Bld) [Volume fraction] 36.1 % Low 39.6 - 48.8 % [facility] Hemoglobin (Bld) [Mass/Vol] 11.6 g/dL Low 13.4 - 16.8 g/dL [facility] Interpretation and review of laboratory results Abnormal [facility] MCH (RBC) [Entitic mass] 27.4 pg 26.1 - 33.3 pg [facility] MCHC (RBC) [Mass/Vol] 32.1 g/dL 31.9 - 36.5 g/dL [facility] MCV (RBC) [Entitic vol] 85.1 fL 79.0 - 94.5 fL [facility] Platelet mean volume (Bld) [Entitic vol] 9.5 fL 8.7 - 12.3 fL [facility] Platelets (Bld) [#/Vol] 182 10*3/uL 146 - 337 K/uL [facility] RBC (Bld) [#/Vol] 4.24 10*6/uL Low [facility] WBC (Bld) [#/Vol] 4.59 10*3/uL 3.73 - 10. 10 K/uL [facility] CHEM 7 (LYTES,BUN,CREA,GLUC) on 09-08-2023 Anion gap [Moles/Vol] 12 mmol/L 7 - 17 mmol/L [facility] Chloride [Moles/Vol] 113 mmol/L High 98 - 10 8 mmol/L [facility] CO2 [Moles/Vol] 21 mmol/L 21 - 31 mmol/L [facility] Creatinine [Mass/Vol] 1.14 mg/dL 0.70 - 1.30 mg/dL [facility] eGFR, CKD-EPI, Male 77 - PINF [facility] Glucose [Mass/Vol] 107 mg/dL High 70 - 99 mg/dL [facility] Osmolality Calc [[facility]smolality] [facility] Potassium [Moles/Vol] 3.9 mmol/L 3.5 - 5.0 mmol/L [facility] Sodium [Moles/Vol] 142 mmol/L 135 - 145 mmol/L [facility] Urea nitrogen [Mass/Vol] 11 mg/dL 7 - 25 mg/dL [facility] Urea nitrogen/Creatinine [Mass ratio] 10 mg/mg [facility] HEPATIC FUNCTION PANELon Albumin [Mass/Vol] 2.9 g/dL Low 3.5 - 5.0 g/dL [facility] ALP [Catalytic activity/Vol] 133 U/L High 32 - 126 U/L [facility] ALT [Catalytic activity/Vol] 23 U/L 10 - 52 U/L [facility] AST [Catalytic activity/Vol] 23 U/L 10 - 39 U/L [facility] Bilirubin [Mass/Vol] 0.8 mg/dL NINF - 1.5 mg/dL [facility] Bilirubin.direct [Mass/Vol] 0.2 mg/dL NINF - 0.3 mg/dL [facility] Protein [Mass/Vol] 5.9 g/dL Low 6.4 - 8.3 g/dL [facility] MAGNESIUMon 09-08-2023 Interpretation and review of laboratory results Normal [facility] Magnesium [Mass/Vol] 1.8 mg/dL 1.6 - 2 .6 mg/dL [facility] No Panel Informationon 09-08 Interpretation and review of laboratory results Abnormal [facility] PHOSPHATE, INORGANICon 09-08 Interpretation and review of laboratory results Normal [facility] Phosphate [Mass/Vol] 4.1 mg/dL 2.2 - 4 .6 mg/dL [facility] TACROLIMUS LEVEL, TROUGH (WI E DRUG LEVEL)on 09-08-2023 Interpretation and review of laboratory results Normal [facility] Tacrolimus (Bld) [Mass/Vol] 8.5 ng/mL [facility] CBC,PLATELETSon 09-07-2023 Erythrocyte distribution width (RBC) [Ratio] 13.5 % 10.9 - 14.3 % [facility] Hematocrit (Bld) [Volume fraction] 37.1 % Low 39.6 - 48.8 % [facility] Hemoglobin (Bld) [Mass/Vol] 11.9 g/dL Low 13.4 - 16.8 g/dL [facility] Interpretation and review of laboratory results Abnormal [facility] MCH (RBC) [Entitic mass] 27.7 pg 26.1 - 33.3 pg [facility] MCHC (RBC) [Mass/Vol] 32.1 g/dL 31.9 - 36.5 g/dL [facility] MCV (RBC) [Entitic vol] 86.5 fL 79.0 - 94.5 fL [facility] Platelet mean volume (Bld) [Entitic vol] 9.6 fL 8.7 - 12.3 fL [facility] Platelets (Bld) [#/Vol] 176 10*3/uL 146 - 337 K/uL [facility] RBC (Bld) [#/Vol] 4.29 10*6/uL Low [facility] WBC (Bld) [#/Vol] 4.10 10*3/uL 3.73 - 10. 10 K/uL [facility] CHEM 7 (LYTES,BUN,CREA,GLUC) on 09-07-2023 Anion gap [Moles/Vol] 13 mmol/L 7 - 17 mmol/L [facility] Chloride [Moles/Vol] 113 mmol/L High 98 - 10 8 mmol/L [facility] CO2 [Moles/Vol] 19 mmol/L Low 21 - 31 mmol/L [facility] Creatinine [Mass/Vol] 1.22 mg/dL 0.70 - 1.30 mg/dL [facility] eGFR, CKD-EPI, Male 71 - PINF [facility] Glucose [Mass/Vol] 107 mg/dL High 70 - 99 mg/dL [facility] Osmolality Calc [Osmolality] [facility] Potassium [Moles/Vol] 3.9 mmol/L 3.5 - 5.0 mmol/L [facility] Sodium [Moles/Vol] 141 mmol/L 135 - 145 mmol/L [facility] Urea nitrogen [Mass/Vol] 13 mg/dL 7 - 25 mg/dL [facility] Urea nitrogen/Creatinine [Mass ratio] 11 mg/mg [facility] HEPATIC FUNCTION PANELon Albumin [Mass/Vol] 2.9 g/dL Low 3.5 - 5.0 g/dL [facility] ALP [Catalytic activity/Vol] 111 U/L 32 - 126 U/L [facility] ALT [Catalytic activity/Vol] 18 U/L 10 - 52 U/L [facility] AST [Catalytic activity/Vol] 23 U/L 10 - 39 U/L [facility] Bilirubin [Mass/Vol] 0.8 mg/dL NINF - 1.5 mg/dL [facility] Bilirubin.direct [Mass/Vol] 0.3 mg/dL High NINF - 0.3 mg/dL [facility] Protein [Mass/Vol] 6.0 g/dL Low 6.4 - 8.3 g/dL [facility] MAGNESIUMon 09-07-2023 Interpretation and review of laboratory results Normal [facility] Magnesium [Mass/Vol] 1.7 mg/dL 1.6 - 2 .6 mg/dL [facility] No Panel Informationon 09-07 Interpretation and review of laboratory results Abnormal [facility] PHOSPHATE, INORGANICon 09-07 Interpretation and review of laboratory results Normal [facility] Phosphate [Mass/Vol] 4.4 mg/dL 2.2 - 4 .6 mg/dL [facility] TACROLIMUS LEVEL, TROUGH (WI E DRUG LEVEL)Ordered By: Elizabeth Maldonado on 09-07-2023 Interpretation and review of laboratory results Normal [facility] Tacrolimus (Bld) [Mass/Vol] 7.8 ng/mL [facility] CBC,PLATELETSon 09-06-2023 Erythrocyte distribution width (RBC) [Ratio] 13.4 % 10.9 - 14.3 % [facility] Hematocrit (Bld) [Volume fraction] 38.4 % Low 39.6 - 48.8 % [facility] Hemoglobin (Bld) [Mass/Vol] 11.9 g/dL Low 13.4 - 16.8 g/dL [facility] Interpretation and review of laboratory results Abnormal [facility] MCH (RBC) [Entitic mass] 26.6 pg 26.1 - 33.3 pg [facility] MCHC (RBC) [Mass/Vol] 31.0 g/dL Low 31.9 - 36.5 g/dL [facility] MCV (RBC) [Entitic vol] 85.9 fL 79.0 - 94.5 fL [facility] Platelet mean volume (Bld) [Entitic vol] 9.7 fL 8.7 - 12.3 fL [facility] Platelets (Bld) [#/Vol] 181 10*3/uL 146 - 337 K/uL [facility] RBC (Bld) [#/Vol] 4.47 10*6/uL [facility] WBC (Bld) [#/Vol] 4.41 10*3/uL 3.73 - 10. 10 K/uL [facility] CHEM 7 (LYTES,BUN,CREA,GLUC) on 09-06-2023 Anion gap [Moles/Vol] 14 mmol/L 7 - 17 mmol/L [facility] Chloride [Moles/Vol] 109 mmol/L High 98 - 10 8 mmol/L [facility] CO2 [Moles/Vol] 19 mmol/L Low 21 - 31 mmol/L [facility] Creatinine [Mass/Vol] 1.26 mg/dL 0.70 - 1.30 mg/dL [facility] eGFR, CKD-EPI, Male 69 - PINF [facility] Glucose [Mass/Vol] 114 mg/dL High 70 - 99 mg/dL [facility] Osmolality Calc [Osmolality] [facility] Potassium [Moles/Vol] 4.1 mmol/L 3.5 - 5.0 mmol/L [facility] Sodium [Moles/Vol] 138 mmol/L 135 - 145 mmol/L [facility] Urea nitrogen [Mass/Vol] 16 mg/dL 7 - 25 mg/dL [facility] Urea nitrogen/Creatinine [Mass ratio] 13 mg/mg [facility] HEPATIC FUNCTION PANELon Albumin [Mass/Vol] 3.0 g/dL Low 3.5 - 5.0 g/dL [facility] ALP [Catalytic activity/Vol] 115 U/L 32 - 126 U/L [facility] ALT [Catalytic activity/Vol] 25 U/L 10 - 52 U/L [facility] AST [Catalytic activity/Vol] 31 U/L 10 - 39 U/L [facility] Bilirubin [Mass/Vol] 1.0 mg/dL NINF - 1.5 mg/dL [facility] Bilirubin.direct [Mass/Vol] 0.3 mg/dL High NINF - 0.3 mg/dL [facility] Protein [Mass/Vol] 6.3 g/dL Low 6.4 - 8.3 g/dL [facility] MAGNESIUMon 09-06-2023 Interpretation and review of laboratory results Normal [facility] Magnesium [Mass/Vol] 2.0 mg/dL 1.6 - 2 .6 mg/dL [facility] No Panel Informationon 09-06 Interpretation and review of laboratory results Abnormal [facility] TACROLIMUS LEVEL, TROUGH (WI E DRUG LEVEL)on 09-06-2023 Interpretation and review of laboratory results Normal [facility] Tacrolimus (Bld) [Mass/Vol] 6.7 ng/mL [facility] CBC,PLATELETSon 09-05-2023 Erythrocyte distribution width (RBC) [Ratio] 13.5 % 10.9 - 14.3 % [facility] Hematocrit (Bld) [Volume fraction] 35.6 % Low 39.6 - 48.8 % [facility] Hemoglobin (Bld) [Mass/Vol] 11.4 g/dL Low 13.4 - 16.8 g/dL [facility] Interpretation and review of laboratory results Abnormal [facility] MCH (RBC) [Entitic mass] 27.5 pg 26.1 - 33.3 pg [facility] MCHC (RBC) [Mass/Vol] 32.0 g/dL 31.9 - 36.5 g/dL [facility] MCV (RBC) [Entitic vol] 86.0 fL 79.0 - 94.5 fL [facility] Platelet mean volume (Bld) [Entitic vol] 10.0 fL 8.7 - 12.3 fL [facility] Platelets (Bld) [#/Vol] 170 10*3/uL 146 - 337 K/uL [facility] RBC (Bld) [#/Vol] 4.14 10*6/uL Low [facility] WBC (Bld) [#/Vol] 4.24 10*3/uL 3.73 - 10. 10 K/uL [facility] CHEM 7 (LYTES,BUN,CREA,GLUC) on 09-05-2023 Anion gap [Moles/Vol] 12 mmol/L 7 - 17 mmol/L [facility] Chloride [Moles/Vol] 107 mmol/L 98 - 10 8 mmol/L [facility] CO2 [Moles/Vol] 20 mmol/L Low 21 - 31 mmol/L [facility] Creatinine [Mass/Vol] 1.43 mg/dL High 0.70 - 1.30 mg/dL [facility] eGFR, CKD-EPI, Male 60 Low - PINF [facility] Glucose [Mass/Vol] 111 mg/dL High 70 - 99 mg/dL [facility] Osmolality Calc [Osmolality] 286 [facility] Potassium [Moles/Vol] 4.2 mmol/L 3.5 - 5.0 mmol/L [facility] Sodium [Moles/Vol] 135 mmol/L 135 - 145 mmol/L [facility] Urea nitrogen [Mass/Vol] 18 mg/dL 7 - 25 mg/dL [facility] Urea nitrogen/Creatinine [Mass ratio] 13 mg/mg [facility] CONTINUOUS CARDIAC MONITORIN G STRIPon 09-05-2023 [facility] HEPATIC FUNCTION PANELon Albumin [Mass/Vol] 2.8 g/dL Low 3.5 - 5.0 g/dL [facility] ALP [Catalytic activity/Vol] 103 U/L 32 - 126 U/L [facility] ALT [Catalytic activity/Vol] 26 U/L 10 - 52 U/L [facility] AST [Catalytic activity/Vol] 38 U/L 10 - 39 U/L [facility] Bilirubin [Mass/Vol] 0.9 mg/dL NINF - 1.5 mg/dL [facility] Bilirubin.direct [Mass/Vol] 0.1 mg/dL NINF - 0.3 mg/dL [facility] Protein [Mass/Vol] 6.1 g/dL Low 6.4 - 8.3 g/dL [facility] HISTOPLASMA ANTIGEN, FLUIDon 09-05-2023 FH SOURCE BAL RML [facility] Histo FLD interpretation Negative [facility] Histoplasma Antigen, FLUID Not detected ng/mL [facility] HISTOPLASMA CAPSULATUM/BLAST OMYCES SPECIES,PCR FLUIDon 09-05-2023 HISTO/BLASTO RESULT Negative Not Applicable [facility] Specimen source Nom (Unsp spec) BAL RML [facility] IMMUNOPHENOTYPING, TISSUE/FL UIDon 09-05-2023 BKR DX CODE Use Ordering [facility] Flow Interpretation See Comment [facility] Flow Interpreted by: Yossi Perla MD, PhD [facility] MAGNESIUMon 09-05-2023 Interpretation and review of laboratory results Normal [facility] Magnesium [Mass/Vol] 1.7 mg/dL 1.6 - 2 .6 mg/dL [facility] No Panel Informationon 09-05 Interpretation and review of laboratory results Abnormal [facility] TACROLIMUS LEVEL, TROUGH (WI E DRUG LEVEL)Ordered By: Raymundo Mehta on 09-05-2023 Interpretation and review of laboratory results Normal [facility] Tacrolimus (Bld) [Mass/Vol] 5.3 ng/mL [facility] ARTERIAL BLOOD GAS (FULL GOSS EL)on 09-04-2023 Base excess Calc (Bld) [Moles/Vol] -1.2000 mmol/L -3.0 - 3.0 mmol/L [facility] Calcium.ionized (Bld) [Mass/Vol] 4.79 mg/dL 4.60 - 5.30 mg/dL [facility] Carboxyhemoglobin (Bld) [Mass fraction] 0.7 % NINF - 1.5 % [facility] CO2 (Bld) [Partial pressure] 30 mm[Hg] Low [facility] Glucose [Mass/Vol] 159 mg/dL High 70 - 99 mg/dL [facility] HCO3 (Bld) [Moles/Vol] 22 mmol/L 22 - 28 mmol/L [facility] Hematocrit (Bld) [Volume fraction] 38.0 % Low 40.2 - 50.4 % [facility] Hemoglobin (Bld) [Mass/Vol] 12.6 g/dL Low 13.4 - 16.8 g/dL [facility] Interpretation and review of laboratory results Abnormal [facility] Lactate [Moles/Vol] 2.0 mmol/L High 0.5 - 1. 6 mmol/L [facility] Methemoglobin (Bld) [Mass fraction] 0.0 % NINF - 1.5 % [facility] Oxygen (Bld) [Partial pressure] 62 mm[Hg] Low [facility] Oxygen saturation in Blood 92 % Low 94 - 98 % [facility] Oxyhemoglobin 91 % Low 94 - 98 % [facility] pH (Bld) 7.48 [pH] High 7.35 - 7.45 [facility] Potassium [Moles/Vol] 4.2 mmol/L 3.5 - 5.0 mmol/L [facility] Sodium [Moles/Vol] 130 mmol/L Low 135 - 145 mmol/L [facility] Specimen source Nom (Unsp spec) Arterial [facility] Bacteria identified Respirat ory culture Nom (Unsp spec)on 09-04-2023 Bacteria identified Cx Nom (Unsp spec) NO GROWTH DAY 2 OF 2 [facility] Microscopic observation Other stain Nom (Unsp spec) Cytocentrifuge preparation [facility] Microscopic observation Other stain Nom (Unsp spec) [facility], [facility] Other stain Nom (Unsp spec) Red Blood Cells Present [facility] Microscopic observation Other stain Nom (Unsp spec) No organisms seen [facility] Bacteria identified Respirat ory culture Nom (Unsp spec)Ordered By: Jose Salgado on 09-04-2023 Bacteria identified Cx Nom (Unsp spec) NO GROWTH DAY 2 OF 2 [facility] Microscopic observation Other stain Nom (Unsp spec) Cytocentrifuge preparation [facility] Microscopic observation Other stain Nom (Unsp spec) Neutrophils, Moderate [facility] Microscopic observation Other stain Nom (Unsp spec) Red Blood Cells Present [facility] Microscopic observation Other stain Nom (Unsp spec) No organisms seen [facility] CBC,PLATELETSon 09-04-2023 Erythrocyte distribution width (RBC) [Ratio] 13.2 % 10.9 - 14.3 % [facility] Hematocrit (Bld) [Volume fraction] 38.7 % Low 39.6 - 48.8 % [facility] Hemoglobin (Bld) [Mass/Vol] 12.3 g/dL Low 13.4 - 16.8 g/dL [facility] Interpretation and review of laboratory results Abnormal [facility] MCH (RBC) [Entitic mass] 27.9 pg 26.1 - 33.3 pg [facility] MCHC (RBC) [Mass/Vol] 31.8 g/dL Low 31.9 - 36.5 g/dL [facility] MCV (RBC) [Entitic vol] 87.8 fL 79.0 - 94.5 fL [facility] Platelet mean volume (Bld) [Entitic vol] 9.8 fL 8.7 - 12.3 fL [facility] Platelets (Bld) [#/Vol] 173 10*3/uL 146 - 337 K/uL [facility] RBC (Bld) [#/Vol] 4.41 10*6/uL [facility] WBC (Bld) [#/Vol] 4.57 10*3/uL 3.73 - 10. 10 K/uL [facility] CHEM 7 (LYTES,BUN,CREA,GLUC) on 09-04-2023 Anion gap [Moles/Vol] 16 mmol/L 7 - 17 mmol/L [facility] Chloride [Moles/Vol] 104 mmol/L 98 - 10 8 mmol/L [facility] CO2 [Moles/Vol] 18 mmol/L Low 21 - 31 mmol/L [facility] Creatinine [Mass/Vol] 1.22 mg/dL 0.70 - 1.30 mg/dL [facility] eGFR, CKD-EPI, Male 71 - PINF [facility] Glucose [Mass/Vol] 124 mg/dL High 70 - 99 mg/dL [facility] Osmolality Calc [Osmolality] 284 [facility] Potassium [Moles/Vol] 3.9 mmol/L 3.5 - 5.0 mmol/L [facility] Sodium [Moles/Vol] 134 mmol/L Low 135 - 145 mmol/L [facility] Urea nitrogen [Mass/Vol] 15 mg/dL 7 - 25 mg/dL [facility] Urea nitrogen/Creatinine [Mass ratio] 12 mg/mg [facility] CMV PCR,FLUIDS,URINE,EYE ETC on 09-04-2023 Specimen source Nom (Unsp spec) BAL LLL [facility] Specimen source Nom (Unsp spec) BAL RML [facility] HEPATIC FUNCTION PANELon Albumin [Mass/Vol] 3.0 g/dL Low 3.5 - 5.0 g/dL [facility] ALP [Catalytic activity/Vol] 112 U/L 32 - 126 U/L [facility] ALT [Catalytic activity/Vol] 22 U/L 10 - 52 U/L [facility] AST [Catalytic activity/Vol] 30 U/L 10 - 39 U/L [facility] Bilirubin [Mass/Vol] 1.2 mg/dL NINF - 1.5 mg/dL [facility] Bilirubin.direct [Mass/Vol] 0.4 mg/dL High NINF - 0.3 mg/dL [facility] Protein [Mass/Vol] 6.4 g/dL 6.4 - 8.3 g/dL [facility] LEGIONELLA PCRon 09-04-2023 Legionella sp rRNA Probe Ql (Unsp spec) Negative Not Applicable [facility] Specimen source Nom (Unsp spec) BAL RML [facility] Laboratory - Microbiology an d Antimicrobial susceptibilityon 09-04-2023 CMV DNA ESTELITA+probe Ql (Unsp spec) Negative Negative [facility] MAGNESIUMon 09-04-2023 Magnesium [Mass/Vol] 1.4 mg/dL Low 1.6 - 2 .6 mg/dL [facility] No Panel Informationon 09-04 Annotation comment [Interpretation] Narrative DNR [facility] PN Report Status DNR [facility] Pneumocystis jiroveci,PCR result Negative Not Applicable [facility] Interpretation and review of laboratory results Abnormal [facility] PNEUMOCYSTIS JIROVECI,PCRon 09-04-2023 Specimen source Nom (Unsp spec) BAL LLL [facility] Specimen source Nom (Unsp spec) BAL RML [facility] Portable XR Chest Viewson RADIOLOGY RADIOLOGY [facility] Radiology Study observation (narrative) [facility] Portable XR Chest ViewsOrder ed By: Joanie Nugent on 09-04-2023 [facility] Work Phone: TACROLIMUS LEVEL, TROUGH (WI E DRUG LEVEL)on 09-04-2023 Interpretation and review of laboratory results Abnormal [facility] Tacrolimus (Bld) [Mass/Vol] 3.6 ng/mL Low [facility] ASPERGILLUS ANTIGEN, BALon 1 Galactomannan Ag IA Qn (Unsp spec) <0.500 NINF [facility] Galactomannan Ag IA Qn (Unsp spec) <0.500 [employer] [facility] [employer] BAL CONSULTOrdered By: Noa Peralta on 09-03-2023 ALVEOLAR MACROPHAGES 32 % [facility] Work Phone: Bal comments Correlation with microbiology stains and cultures is recommended. [facility] Work Phone: Bal Diff Quik Stain Quality Check Acceptable [facility] Work Phone: BKR BAL INTERPRETATION Cellular specimen comprised of alveolar macrophages and small lymphocytes. No definitive microorganisms are observed. Moderate degenerative changes. [facility] Work Phone: BKR DX CODE Use Ordering [facility] Work Phone: Eosinophils Patterson stain Ql (Unsp spec) 0 % [facility] Work Phone: Lymphocytes/100 WBC (Bld) 57 % [facility] Work Phone: Neutrophils/100 WBC Manual cnt (Bronch spec) 11 % [facility] Work Phone: Pathologist review Jame (Unsp spec) [Interp] Leonardo Peralta MD [facility] Work Phone: [facility] Work Phone: BAL CONSULTon 09-03-2023 ALVEOLAR MACROPHAGES 33 % [facility] Bal comments Correlation with microbiology stains and cultures is recommended. Correlation with viral studies is recommended. [facility] Bal Diff Quik Stain Quality Check Acceptable [facility] BKR BAL INTERPRETATION Cellular specimen comprised of alveolar macrophages and small lymphocytes. No definitive microorganisms are observed. Rare degenerating cells with changes suggestive of viral cytopathic effect are noted. Moderate degenerative changes. [facility] BKR DX CODE Use Ordering [facility] Eosinophils Patterson stain Ql (Unsp spec) 0 % [facility] Lymphocytes/100 WBC (Bld) 49 % [facility] Neutrophils/100 WBC Manual cnt (Bronch spec) 18 % [facility] Pathologist review Jame (Unsp spec) [Interp] Leonardo Peralta MD [facility] BRONCHOSCOPYon 09-03-2023 LAB, [facility] CBC,PLATELETSon 09-03-2023 Erythrocyte distribution width (RBC) [Ratio] 13.4 % 10.9 - 14.3 % [facility] Hematocrit (Bld) [Volume fraction] 39.6 % 39.6 - 48.8 % [facility] Hemoglobin (Bld) [Mass/Vol] 12.8 g/dL Low 13.4 - 16.8 g/dL [facility] Interpretation and review of laboratory results Abnormal [facility] MCH (RBC) [Entitic mass] 27.8 pg 26.1 - 33.3 pg [facility] MCHC (RBC) [Mass/Vol] 32.3 g/dL 31.9 - 36.5 g/dL [facility] MCV (RBC) [Entitic vol] 85.9 fL 79.0 - 94.5 fL [facility] Platelet mean volume (Bld) [Entitic vol] 9.4 fL 8.7 - 12.3 fL [facility] Platelets (Bld) [#/Vol] 222 10*3/uL 146 - 337 K/uL [facility] RBC (Bld) [#/Vol] 4.61 10*6/uL [facility] WBC (Bld) [#/Vol] 4.36 10*3/uL 3.73 - 10. 10 [facility] CHEM 7 (LYTES,BUN,CREA,GLUC) on 09-03-2023 Anion gap [Moles/Vol] 12 mmol/L 7 - 17 mmol/L [facility] Chloride [Moles/Vol] 104 mmol/L 98 - 10 8 mmol/L [facility] CO2 [Moles/Vol] 24 mmol/L 21 - 31 mmol/L [facility] Creatinine [Mass/Vol] 1.20 mg/dL 0.70 - 1.30 mg/dL [facility] eGFR, CKD-EPI, [facility] 73 - [facility] Glucose [Mass/Vol] 112 mg/dL High 70 - 99 mg/dL [facility] Osmolality Calc [Osmolality] 288 [facility] Potassium [Moles/Vol] 4.1 mmol/L 3.5 - 5.0 mmol/L [facility] Sodium [Moles/Vol] 136 mmol/L 135 - 145 mmol/L [facility] Urea nitrogen [Mass/Vol] 17 mg/dL 7 - 25 mg/dL [facility] Urea nitrogen/Creatinine [Mass ratio] 14 mg/mg [facility] CYTOLOGY, NON-GYNOrdered By: Sherice Jimenez on 09-03-2023 CYTOLOGIC DIAGNOSIS [id number] hkwmBvOVYokYDrW3Zrxajk NNyuGM9nHG3feSjknXApkC CsJJFcOnNiy4wsv166iGSc o2heKWHRyewevLo4d9acGP AYlG4cx4u9eC91KALnpO3h dGJsIDtccmVkMFxncmVlbj YjEwd9CKD8gAqoIqylcPT0 hFEsfGA6WKvqe9IjdQhahX zcBIM5LMSoPmdpSWxtvAC0 iSAasApdcNNuMH3rd9fveY U7okNyZHJ3dVhpbLZ0bEva zhmsi2bzyNL4qQX1PTjxrK P6LEllXtCjK9agRFWtcM2p B31gK4xzBIPjzTqhGArbYD EhwUB4AXH6XAPrl2xkKMUe rKZneTScTjYkMAbnDfo8u8 blRHZpsS09oQOtmpP5lYrz XHukrBP5ZZ01JFmst0NkHV CbeRakYDHiiV1cSuWnZEys dmVsbmZjbjIzXGxldmVsam MlKLxwmuXqg0DxtwCgwZH1 PIbyybSjoZO3gDflBQLnS5 C0O542WPeqfbKccdIxDcBt mml4OYUyjDkqnPtexAzwle VsXGxldmVsbmZjMjNcbGV2 ZMjtIgQoVoTrmZD6OYprQq TdvWV1MNkhiUErvUV4BOih uGY0IOx6RLm7FGvqBDjkHt d5iXoclMW1EDyjjG1lYCEy Q77vQqG8j9hkeCD5bOS5BM newJR1SFofFyBrT4opYBAb nO2uT38jE8szQLOetVyqIS mzNOYhlRC9SGT6HSKha4sl ZXZlbHRleHRcJzAxXCdiNz z0o3nuRDCrcR23fHLxcaN6 zMfiBH05LLhnp7FiVGXkcY cxMSBleN7qJyAdPJxusiQr bmZjbjIzXGxldmVsamMwXG jlwkZyb0QgqeNopKC3ADtb kyCjqKE1eOsePBOkI5T5C3 95BDgwfeAapgApUpWjfyn9 XGYxfXtcbGlzdGxldmVsXG lvcbAjhmUoUrMvsIB2TGzg OfJsKeOmwOS3TWmfSmNarY M5VTchlWLmjFD4APdbqZH3 TBh6SXc8ZJscXLhtYss3vY iikKG1XPuldO5uLJFvU80l IjC4w2iwnJD9rJN0WHjyzJ H9AIptQcYnT5jxEDWgqS7h A95aU1opTFTtnEtqVYteVA PjtHG3ETP2CKRlx9rdBBAt rJVaeJHlKcTkORnzKdt1h4 opJRRhcU69fUDueaK0qIpw QK04RDsks7XiRCFdsVrfKG LsbR5yXcWgFElaqjMpryDf bjIzXGxldmVsamMwXGxldm Doa7QyhmSisSR6SUyrlgXw fYB8cFypGTUfS2S9U138ZK ukxpXwxlVrTrZowuj5HFAy fXtcbGlzdGxldmVsXGxldm JeytMlBsXutYT5CAssPtPh OoXujCG5ODvmVcTfnXG5PW nhlTJhpSX7BXsuyYK4WJc6 MYe8ZVftHYuxGfz2oUwokI G7CKxcgF4vGRBaO60kRqX2 xN90QArgdQihtI68SWXgvH YhzSWwiBQ1PYwozKwgbF19 NDYszIPaLMtrm1LgOHScKi H2PIB3XRRfmYmqcY96TFCi lQXeN685zhSyLFglNG52WE BhcGVydzEyMjQwXHBhcGVy lSI4REPwYX8dnufcAFalWH iyKZZleaX8TFJmkQWvC7Vr CSXnAC8ieiuzCLK0ZDfbFU BrOTG0SmGqDPOfh5Fqidg8 MxHdvWe2c1dhWRWzJGFbqH gud5uvEPH4YZSlqYTxR4lw eF8xNOZnKL3ltrxma1pcLB jyYDdgQLRygRQ3ndD0OQNl xTSnB4HvsV8yUOUuXIReox QzgHxzoZ9uQzcthrMmEOYh XWIKRrYIMc6AJ3yBGRjTUK 9MQVIgTEFWQUdFLCBMRUZU TAeXV9TJECpMYvEuFOPnVU JtB5vAS7iLD9ezQkguZxJy VSseOZXuFxTvV4CeFJNfap uxZVXpDBAYKR4BCTNRELKE Ay1FKYQ7MVPvpafltLP5HP rohwHjoUp6qHKpbDswvK7k YlxmczIyXGNmMSBObyBNYW vnU81xhxBjS2UufUYsDZGd HYydYO36mVMpBSOkzDWiRK j0aV4vTWjyeJgtomTDxEIi aH7gqtjhRJpcUzAivZVoHH xpMFxsczBccGFyfQ== [facility] Work Phone: Case Report [facility] Work Phone: Clinical History u2vgpXVrTVItuELhOVKm M1 nxjsFgQNOucVDxV7Tifxla RUiwIY6qZU8vtTqevPJmdH OtYDJlIqOmc0hyh425uSJv h8lrIRSXqmtmyBd4sNbiF9 9or8B2OgfcF5cwUAQmHHmr DKIfMRoqjPQqVKl6CAAkzB VydzEyMjQwXHBhcGVyaDE1 AEVqHI7xeelyZUpkXGcfNO XcjvZ6QRMhnOYaS7ImPKDy HG7ojmxaGLB1PQqrYUIbOA K7NtFuVWSyu2Lvqsw1QkJg sSb2r0mzUPJaUWCarMiur5 csSJH2VKNebHIbV7talI3p TKEdKR8icjzds1imZWtnCK quVDPjbDW0neO2PUAdsIZq N7XpjE2lIMWzEGJcukEbmN kuiD0xCzRyJPheDtHcSjXk MKheeJDucnMfqTChsJ5rSU Bhcn0= [facility] Work Phone: For Immediate Release to Patient's MyChart? Yes Yes [facility] Work Phone: Gross Description g3kmlNYyGDAsrSBrFKUc M1 bdplAtJDXftVCvU5Ffkilx REojZO9oLW4slNmdaAEwcV IvVQUpYqRbp3rmv231dKDe s0liIJLQlrxiqQl6oHubZ1 6xz9P6KzmgO48puLCtZEI3 QGEmWVZgkOOlBHRmYEP8KL UcrNWzF6nqHJVjHB6tmsoe GGoiHIxyDKBpvOY8NOGkuY ImZ3JuACXpVQgpRMAkfmm5 GtQzWi7beQUafIvfPIovHT JkXHBsYWluXGZzMjAgTExM IEJBTFxwYXIgMSBtbCBoYX n0JYCeoG4akEQqsnOgcUDk tK1czEivSLtuYWAbABPPOT WksCscYLBKKVXmf4KtpU9z cGFyXHBhcmRccGFyXHBhcn 0= [facility] Work Phone: [facility] Work Phone: HEPATIC FUNCTION PANELon Albumin [Mass/Vol] 3.2 g/dL Low 3.5 - 5.0 g/dL [facility] ALP [Catalytic activity/Vol] 118 U/L 32 - 126 U/L [facility] ALT [Catalytic activity/Vol] 25 U/L 10 - 52 U/L [facility] AST [Catalytic activity/Vol] 32 U/L 10 - 39 U/L [facility] Bilirubin [Mass/Vol] 1.0 mg/dL NINF - 1.5 mg/dL [facility] Bilirubin.direct [Mass/Vol] 0.3 mg/dL High NINF - 0.3 mg/dL [facility] Protein [Mass/Vol] 6.5 g/dL 6.4 - 8.3 g/dL [facility] HISTOPLASMA AND BLASTOMYCES ANTIGEN, ENZYME IMMUNOASSAY, SERMon 09-03-2023 Histoplasma/Blastomyce s Ag Result Detected Critically abnormal Not Detected [facility] Histoplasma/Blastomyce s Ag Value 5.3 ng/mL [facility] Interpretation and review of laboratory results Abnormal [facility] MAGNESIUMon 09-03-2023 Interpretation and review of laboratory results Normal [facility] Magnesium [Mass/Vol] 1.6 mg/dL 1.6 - 2 .6 mg/dL [facility] No Panel Informationon 09-03 Interpretation and review of laboratory results Abnormal [facility] PARVOVIRUS (B19) DNA, PCR, B Jenise 09-03-2023 PARVOVIRUS B19 BY RAPID PCR Not detected Not Detected [facility] [place] SPEC SOURCE Whole Blood [facility] Portable XR Chest Viewson RADIOLOGY RADIOLOGY [facility] Radiology Study observation (narrative) [facility] Portable XR Chest ViewsOrder ed By: Lester Grove on 09-03-2023 [facility] Work Phone: ASPERGILLUS (GALACTOMANNAN), ANTIGENon 09-02-2023 Galactomannan Ag IA Qn <0.500 NINF [facility] ATYPICAL BACTERIAL PNEUMONIA ,PCROrdered By: Shari Contrreas on 09-02-2023 B. parapertussis DNA ESTELITA+probe Ql (Unsp spec) Not detected Not Detected [facility] B. pertussis DNA ESTELITA+probe Ql (Unsp spec) Not detected Not Detected [facility] C. pneumoniae DNA ESTELITA+probe Ql (Unsp spec) Not detected Not Detected [facility] Interpretation and review of laboratory results Normal [facility] M. pneumoniae DNA ESTELITA+probe Ql (Unsp spec) Not detected Not Detected [facility] BRONCHOSCOPYon 09-02-2023 Radiology Study observation (narrative) [facility] Bacteria identified Cx Nom ( Bld)on 09-02-2023 Bacteria identified Cx Nom (Unsp spec) NO GROWTH DAY 5 OF 5 [facility] CBC,PLATELETSon 09-02-2023 Erythrocyte distribution width (RBC) [Ratio] 13.2 % 10.9 - 14.3 % [facility] Hematocrit (Bld) [Volume fraction] 39.9 % 39.6 - 48.8 % [facility] Hemoglobin (Bld) [Mass/Vol] 12.9 g/dL Low 13.4 - 16.8 g/dL [facility] Interpretation and review of laboratory results Abnormal [facility] MCH (RBC) [Entitic mass] 27.9 pg 26.1 - 33.3 pg [facility] MCHC (RBC) [Mass/Vol] 32.3 g/dL 31.9 - 36.5 g/dL [facility] MCV (RBC) [Entitic vol] 86.4 fL 79.0 - 94.5 fL [facility] Platelet mean volume (Bld) [Entitic vol] 9.5 fL 8.7 - 12.3 fL [facility] Platelets (Bld) [#/Vol] 210 10*3/uL 146 - 337 K/uL [facility] RBC (Bld) [#/Vol] 4.62 10*6/uL [facility] WBC (Bld) [#/Vol] 4.12 10*3/uL 3.73 - 10. 10 K/uL [facility] CHEM 7 (LYTES,BUN,CREA,GLUC) on 09-02-2023 Anion gap [Moles/Vol] 13 mmol/L 7 - 17 mmol/L [facility] Chloride [Moles/Vol] 105 mmol/L 98 - 10 8 mmol/L [facility] CO2 [Moles/Vol] 22 mmol/L 21 - 31 mmol/L [facility] Creatinine [Mass/Vol] 1.25 mg/dL 0.70 - 1.30 mg/dL [facility] eGFR, CKD-EPI, Male 69 - [facility]F [facility] Glucose [Mass/Vol] 105 mg/dL High 70 - 99 mg/dL [facility] Osmolality Calc [Osmolality] 287 [facility] Potassium [Moles/Vol] 4.3 mmol/L 3.5 - 5.0 mmol/L [facility] Sodium [Moles/Vol] 136 mmol/L 135 - 145 mmol/L [facility] Urea nitrogen [Mass/Vol] 16 mg/dL 7 - 25 mg/dL [facility] Urea nitrogen/Creatinine [Mass ratio] 13 mg/mg [facility] HEPATIC FUNCTION PANELon Albumin [Mass/Vol] 3.2 g/dL Low 3.5 - 5.0 g/dL [facility] ALP [Catalytic activity/Vol] 107 U/L 32 - 126 U/L [facility] ALT [Catalytic activity/Vol] 20 U/L 10 - 52 U/L [facility] AST [Catalytic activity/Vol] 31 U/L 10 - 39 U/L [facility] Bilirubin [Mass/Vol] 1.0 mg/dL NINF - 1.5 mg/dL [facility] Bilirubin.direct [Mass/Vol] 0.3 mg/dL High NINF - 0.3 mg/dL [facility] Protein [Mass/Vol] 6.6 g/dL 6.4 - 8.3 g/dL [facility] HISTOPLASMA ANTIGEN,URINEon 09-02-2023 H. capsulatum Ag (U) [Mass/Vol] Not detected ng/mL [facility] H. capsulatum Ag IA Ql (U) Not detected Not Detected [facility] HIV 1 AND 2 ANTIBODIES/P24 A NTIGENOrdered By: Wilma Luque on 09-02-2023 HIV 1+2 Ab+HIV1 p24 Ag IA Ql Non-Reactive Non Reactive [facility] Interpretation and review of laboratory results Normal [facility] MAGNESIUMon 09-02-2023 Interpretation and review of laboratory results Normal [facility] Magnesium [Mass/Vol] 1.7 mg/dL 1.6 - 2 .6 mg/dL [facility] No Panel Informationon 09-02 Interpretation and review of laboratory results Abnormal [facility] TACROLIMUS LEVEL, TROUGH (WI E DRUG LEVEL)on 09-02-2023 Interpretation and review of laboratory results Normal [facility] Tacrolimus (Bld) [Mass/Vol] 4.2 ng/mL [facility] CBC,PLATELETSon 09-01-2023 Erythrocyte distribution width (RBC) [Ratio] 13.4 % 10.9 - 14.3 % [facility] Hematocrit (Bld) [Volume fraction] 38.9 % Low 39.6 - 48.8 % [facility] Hemoglobin (Bld) [Mass/Vol] 12.7 g/dL Low 13.4 - 16.8 g/dL [facility] Interpretation and review of laboratory results Abnormal [facility] MCH (RBC) [Entitic mass] 27.6 pg 26.1 - 33.3 pg [facility] MCHC (RBC) [Mass/Vol] 32.6 g/dL 31.9 - 36.5 g/dL [facility] MCV (RBC) [Entitic vol] 84.6 fL 79.0 - 94.5 fL [facility] Platelet mean volume (Bld) [Entitic vol] 9.4 fL 8.7 - 12.3 fL [facility] Platelets (Bld) [#/Vol] 209 10*3/uL 146 - 337 K/uL [facility] RBC (Bld) [#/Vol] 4.60 10*6/uL [facility] WBC (Bld) [#/Vol] 4.41 10*3/uL 3.73 - 10. 10 K/uL [facility] CHEM 7 (LYTES,BUN,CREA,GLUC) on 09-01-2023 Anion gap [Moles/Vol] 14 mmol/L 7 - 17 mmol/L [facility] Chloride [Moles/Vol] 103 mmol/L 98 - 10 8 mmol/L [facility] CO2 [Moles/Vol] 21 mmol/L 21 - 31 mmol/L [facility] Creatinine [Mass/Vol] 1.16 mg/dL 0.70 - 1.30 mg/dL [facility] eGFR, CKD-EPI, Male 76 - PINF [facility] Glucose [Mass/Vol] 117 mg/dL High 70 - 99 mg/dL [facility] Osmolality Calc [Osmolality] 285 [facility] Potassium [Moles/Vol] 4.2 mmol/L 3.5 - 5.0 mmol/L [facility] Sodium [Moles/Vol] 134 mmol/L Low 135 - 145 mmol/L [facility] Urea nitrogen [Mass/Vol] 18 mg/dL 7 - 25 mg/dL [facility] Urea nitrogen/Creatinine [Mass ratio] 16 mg/mg [facility] CRYPTOCOCCAL ANTIGENon 09-01 Cryptococcus sp Ag Ql (S) Negative Negative [facility] Interpretation and review of laboratory results Normal [facility] HEPATIC FUNCTION PANELon Albumin [Mass/Vol] 3.3 g/dL Low 3.5 - 5.0 g/dL [facility] ALP [Catalytic activity/Vol] 112 U/L 32 - 126 U/L [facility] ALT [Catalytic activity/Vol] 21 U/L 10 - 52 U/L [facility] AST [Catalytic activity/Vol] 29 U/L 10 - 39 U/L [facility] Bilirubin [Mass/Vol] 1.0 mg/dL NINF - 1.5 mg/dL [facility] Bilirubin.direct [Mass/Vol] 0.2 mg/dL NINF - 0.3 mg/dL [facility] Protein [Mass/Vol] 6.8 g/dL 6.4 - 8.3 g/dL [facility] L. pneumophila 1 Ag IA Ql (U )Ordered By: Carolin Miles on 09-01-2023 Interpretation and review of laboratory results Normal [facility] LEGIONELLA URINARY AGOrdered By: Carolin Miles on 09-01-2023 L. pneumophila 1 Ag IA Ql (U) Negative Negative [facility] MAGNESIUMon 09-01-2023 Interpretation and review of laboratory results Normal [facility] Magnesium [Mass/Vol] 1.6 mg/dL 1.6 - 2 .6 mg/dL [facility] No Panel Informationon 09-01 Interpretation and review of laboratory results Abnormal [facility] CBC,PLATELETSon 08-31-2023 Erythrocyte distribution width (RBC) [Ratio] 13.3 % 10.9 - 14.3 % [facility] Hematocrit (Bld) [Volume fraction] 39.4 % Low 39.6 - 48.8 % [facility] Hemoglobin (Bld) [Mass/Vol] 12.8 g/dL Low 13.4 - 16.8 g/dL [facility] Interpretation and review of laboratory results Abnormal [facility] MCH (RBC) [Entitic mass] 27.6 pg 26.1 - 33.3 pg [facility] MCHC (RBC) [Mass/Vol] 32.5 g/dL 31.9 - 36.5 g/dL [facility] MCV (RBC) [Entitic vol] 85.1 fL 79.0 - 94.5 fL [facility] Platelet mean volume (Bld) [Entitic vol] 9.6 fL 8.7 - 12.3 fL [facility] Platelets (Bld) [#/Vol] 228 10*3/uL 146 - 337 K/uL [facility] RBC (Bld) [#/Vol] 4.63 10*6/uL [facility] WBC (Bld) [#/Vol] 4.77 10*3/uL 3.73 - 10. 10 K/uL [facility] CHEM 7 (LYTES,BUN,CREA,GLUC) on 08-31-2023 Anion gap [Moles/Vol] 13 mmol/L 7 - 17 mmol/L [facility] Chloride [Moles/Vol] 102 mmol/L 98 - 10 8 mmol/L [facility] CO2 [Moles/Vol] 23 mmol/L 21 - 31 mmol/L [facility] Creatinine [Mass/Vol] 1.37 mg/dL High 0.70 - 1.30 mg/dL [facility] eGFR, CKD-EPI, Male 62 - [facility]F [facility] Glucose [Mass/Vol] 112 mg/dL High 70 - 99 mg/dL [facility] Osmolality Calc [Osmolality] 284 [facility] Potassium [Moles/Vol] 4.4 mmol/L 3.5 - 5.0 mmol/L [facility] Sodium [Moles/Vol] 134 mmol/L Low 135 - 145 mmol/L [facility] Urea nitrogen [Mass/Vol] 16 mg/dL 7 - 25 mg/dL [facility] Urea nitrogen/Creatinine [Mass ratio] 12 mg/mg [facility] CT Abdomen and Pelvis WO con traston 08-31-2023 RADIOLOGY RADIOLOGY [facility] Radiology Study observation (narrative) [facility] CT Abdomen and Pelvis WO con trastOrdered By: Chavez Larkin on 08-31-2023 [facility] Work Phone: CT Chest WO contraston 08-31 RADIOLOGY RADIOLOGY [facility] Radiology Study observation (narrative) [facility] CT Chest WO contrastOrdered By: Daisha Patterson on 08-31-2023 [facility] Work Phone: FERRITINon 10-02-2023 Ferritin [Mass/Vol] 409.0 ng/mL High 10.5 - 3 07.3 ng/mL [facility] Interpretation and review of laboratory results Abnormal [facility] HEPATIC FUNCTION PANELon Albumin [Mass/Vol] 3.3 g/dL Low 3.5 - 5.0 g/dL [facility] ALP [Catalytic activity/Vol] 113 U/L 32 - 126 U/L [facility] ALT [Catalytic activity/Vol] 25 U/L 10 - 52 U/L [facility] AST [Catalytic activity/Vol] 31 U/L 10 - 39 U/L [facility] Bilirubin [Mass/Vol] 1.1 mg/dL NINF - 1.5 mg/dL [facility] Bilirubin.direct [Mass/Vol] 0.3 mg/dL High NINF - 0.3 mg/dL [facility] Protein [Mass/Vol] 7.0 g/dL 6.4 - 8.3 g/dL [facility] MAGNESIUMon 08-31-2023 Interpretation and review of laboratory results Normal [facility] Magnesium [Mass/Vol] 1.7 mg/dL 1.6 - 2 .6 mg/dL [facility] No Panel Informationon 08-31 Interpretation and review of laboratory results Abnormal [facility] PROCALCITONINon 08-31-2023 Interpretation and review of laboratory results Normal [facility] Procalcitonin [Mass/Vol] 0.23 ng/mL NINF - 0.50 ng/mL [facility] TACROLIMUS LEVEL, TROUGH (WI E DRUG LEVEL)Ordered By: Yanira Marcum on 08-31-2023 Interpretation and review of laboratory results Normal [facility] Tacrolimus (Bld) [Mass/Vol] 5.9 ng/mL [facility] URINE CULTUREOrdered By: Jorge Lozano on 08-31-2023 Bacteria identified Cx Nom (Unsp spec) No Growth [facility] DARYL AURIS SCREEN BY PCRO rdered By: Mynor Alejandro on 08-30-2023 Daryl auris Screen by PCR Not detected Not Detected [facility] Interpretation and review of laboratory results Normal [facility] CBC,PLATELETSon 08-30-2023 Erythrocyte distribution width (RBC) [Ratio] 13.3 % 10.9 - 14.3 % [facility] Hematocrit (Bld) [Volume fraction] 41.3 % 39.6 - 48.8 % [facility] Hemoglobin (Bld) [Mass/Vol] 13.2 g/dL Low 13.4 - 16.8 g/dL [facility] Interpretation and review of laboratory results Abnormal [facility] MCH (RBC) [Entitic mass] 27.3 pg 26.1 - 33.3 pg [facility] MCHC (RBC) [Mass/Vol] 32.0 g/dL 31.9 - 36.5 g/dL [facility] MCV (RBC) [Entitic vol] 85.5 fL 79.0 - 94.5 fL [facility] Platelet mean volume (Bld) [Entitic vol] 9.2 fL 8.7 - 12.3 fL [facility] Platelets (Bld) [#/Vol] 235 10*3/uL 146 - 337 K/uL [facility] RBC (Bld) [#/Vol] 4.83 10*6/uL [facility] WBC (Bld) [#/Vol] 4.96 10*3/uL 3.73 - 10. 10 K/uL [facility] CHEM 7 (LYTES,BUN,CREA,GLUC) on 08-30-2023 Anion gap [Moles/Vol] 14 mmol/L 7 - 17 mmol/L [facility] Chloride [Moles/Vol] 102 mmol/L 98 - 10 8 mmol/L [facility] CO2 [Moles/Vol] 20 mmol/L Low 21 - 31 mmol/L [facility] Creatinine [Mass/Vol] 1.56 mg/dL High 0.70 - 1.30 mg/dL [facility] eGFR, CKD-EPI, Male 54 Low - PINF [facility] Glucose [Mass/Vol] 123 mg/dL High 70 - 99 mg/dL [facility] Osmolality Calc [Osmolality] 281 [facility] Potassium [Moles/Vol] 4.3 mmol/L 3.5 - 5.0 mmol/L [facility] Sodium [Moles/Vol] 132 mmol/L Low 135 - 145 mmol/L [facility] Urea nitrogen [Mass/Vol] 16 mg/dL 7 - 25 mg/dL [facility] Urea nitrogen/Creatinine [Mass ratio] 10 mg/mg [facility] EXTRA MICROon 08-30-2023 [facility] HEPATIC FUNCTION PANELon Albumin [Mass/Vol] 3.7 g/dL 3.5 - 5.0 g/dL [facility] ALP [Catalytic activity/Vol] 115 U/L 32 - 126 U/L [facility] ALT [Catalytic activity/Vol] 22 U/L 10 - 52 U/L [facility] AST [Catalytic activity/Vol] 34 U/L 10 - 39 U/L [facility] Bilirubin [Mass/Vol] 1.2 mg/dL [employer] [facility] [employer] - 1.5 mg/dL [facility] Bilirubin.direct [Mass/Vol] 0.3 mg/dL High NINF - 0.3 mg/dL [facility] Protein [Mass/Vol] 7.7 g/dL 6.4 - 8.3 g/dL [facility] MAGNESIUMon 08-30-2023 Interpretation and review of laboratory results Normal [facility] Magnesium [Mass/Vol] 1.8 mg/dL 1.6 - 2 .6 mg/dL [facility] No Panel Informationon 08-30 Interpretation and review of laboratory results Abnormal [facility] CBC,PLATELETSon 08-29-2023 Erythrocyte distribution width (RBC) [Ratio] 13.4 % 10.9 - 14.3 % [facility] Hematocrit (Bld) [Volume fraction] 37.6 % Low 39.6 - 48.8 % [facility] Hemoglobin (Bld) [Mass/Vol] 12.2 g/dL Low 13.4 - 16.8 g/dL [facility] Interpretation and review of laboratory results Abnormal [facility] MCH (RBC) [Entitic mass] 27.6 pg 26.1 - 33.3 pg [facility] MCHC (RBC) [Mass/Vol] 32.4 g/dL 31.9 - 36.5 g/dL [facility] MCV (RBC) [Entitic vol] 85.1 fL 79.0 - 94.5 fL [facility] Platelet mean volume (Bld) [Entitic vol] 9.4 fL 8.7 - 12.3 fL [facility] Platelets (Bld) [#/Vol] 233 10*3/uL 146 - 337 K/uL [facility] RBC (Bld) [#/Vol] 4.42 10*6/uL [facility] WBC (Bld) [#/Vol] 4.92 10*3/uL 3.73 - 10. 10 K/uL [facility] CHEM 7 (LYTES,BUN,CREA,GLUC) on 08-29-2023 Anion gap [Moles/Vol] 13 mmol/L 7 - 17 mmol/L [facility] Chloride [Moles/Vol] 105 mmol/L 98 - 10 8 mmol/L [facility] CO2 [Moles/Vol] 20 mmol/L Low 21 - 31 mmol/L [facility] Creatinine [Mass/Vol] 1.55 mg/dL High 0.70 - 1.30 mg/dL [facility] eGFR, CKD-EPI, Male 55 Low - PINF [facility] Glucose [Mass/Vol] 108 mg/dL High 70 - 99 mg/dL [facility] Osmolality Calc [Osmolality] 283 [facility] Potassium [Moles/Vol] 4.5 mmol/L 3.5 - 5.0 mmol/L [facility] Sodium [Moles/Vol] 133 mmol/L Low 135 - 145 mmol/L [facility] Urea nitrogen [Mass/Vol] 19 mg/dL 7 - 25 mg/dL [facility] Urea nitrogen/Creatinine [Mass ratio] 12 mg/mg [facility] GGTon 08-29-2023 Gamma glutamyl transferase [Catalytic activity/Vol] 64 U/L 8 - 64 U/L [facility] Interpretation and review of laboratory results Normal [facility] HEPATIC FUNCTION PANELon Albumin [Mass/Vol] 3.3 g/dL Low 3.5 - 5.0 g/dL [facility] ALP [Catalytic activity/Vol] 103 U/L 32 - 126 U/L [facility] ALT [Catalytic activity/Vol] 18 U/L 10 - 52 U/L [facility] AST [Catalytic activity/Vol] 27 U/L 10 - 39 U/L [facility] Bilirubin [Mass/Vol] 1.1 mg/dL NINF - 1.5 mg/dL [facility] Bilirubin.direct [Mass/Vol] 0.3 mg/dL High NINF - 0.3 mg/dL [facility] Protein [Mass/Vol] 6.8 g/dL 6.4 - 8.3 g/dL [facility] MAGNESIUMon 08-29-2023 Interpretation and review of laboratory results Normal [facility] Magnesium [Mass/Vol] 1.7 mg/dL 1.6 - 2 .6 mg/dL [facility] No Panel Informationon 08-29 Interpretation and review of laboratory results Abnormal [facility] PT,INR,PTTon 08-29-2023 aPTT Coag (PPP) [Time] 29.3 s [facility] INR Coag (Bld) [Relative time] 1.1 {INR} 0.9 - 1.1 [facility] Interpretation and review of laboratory results [facility] PT Coag (PPP) [Time] 13.8 s [facility] Portable XR Chest Viewson RADIOLOGY RADIOLOGY [facility] Portable XR Chest ViewsOrder ed By: Gerald Baer on 08-29-2023 [facility] Work Phone: TACROLIMUS LEVEL, TROUGH (WI E DRUG LEVEL)on 08-29-2023 Interpretation and review of laboratory results [facility] Tacrolimus (Bld) [Mass/Vol] 8.9 ng/mL [facility] TACROLIMUS LEVEL, TROUGH (WI E DRUG LEVEL)Ordered By: Roxanne Luoie on 08-29-2023 Interpretation and review of laboratory results Normal [facility] Tacrolimus (Bld) [Mass/Vol] 8.7 ng[facility] URINALYSIS REFLEX TO CULTURE PERFORMABLEOrdered By: Shaji Kelly on 08-29-2023 Appearance (U) Clear Clear [facility] Bacteria LM Ql (Urine sed) ABSENT ABSENT [facility] Calcium Oxalate Crystals PRESENT [facility] Color (U) Yellow Yellow [facility] Epithelial cells.squamous LM Ql (Urine sed) 0-2/hpf 0-2/hpf, 3-5/hpf = 1+ [facility] Glucose Test strip (U) [Mass/Vol] Negative Negative [facility] Interpretation and review of laboratory results Abnormal [facility] Ketones (U) [Mass/Vol] Negative Negative [facility] Leukocyte esterase Test strip Ql (U) Negative Negative [facility] Nitrite Ql (U) Negative Negative [facility] pH (U) 6.0 [pH] 5.0 - 7.0 [facility] Protein (U) [Mass/Vol] Negative Negative [facility] RBC (U) [#/Vol] Trace [facility]normal [facility] RBC LM.HPF (Urine sed) [#/Area] 3-5 Abnormal [facility] Specific gravity (U) [Rel density] 1.015 1.001 - 1.035 [facility] Urobilinogen (U) [Mass/Vol] 1.0 E.U./dL 0.2 E.U/dL, 1.0 E.U/dL [facility] WBC LM.HPF (Urine sed) [#/Area] 0 - 5 [facility] US for transplanted kidney l imitedon 08-29-2023 RADIOLOGY RADIOLOGY [facility] Radiology Study observation (narrative) [facility] US for transplanted kidney l imitedOrdered By: Romana Matias on 08-29-2023 [facility] Work Phone: CBC AND ELECTRONIC DIFFon Basophils (Bld) [#/Vol] K/uL 0.00 - 0.09 K/uL [facility] Basophils/100 WBC (Bld) 0.6 % [facility] Differential cell count method Nom (Bld) Electronic Differential [facility] Eosinophils (Bld) [#/Vol] 0.10 10*3/uL 0.00 - 0.48 K/uL [facility] Eosinophils/100 WBC (Bld) 2.1 % [facility] Erythrocyte distribution width (RBC) [Ratio] 13.4 % 10.9 - 14.3 % [facility] Hematocrit (Bld) [Volume fraction] 37.9 % Low 39.6 - 48.8 % [facility] Hemoglobin (Bld) [Mass/Vol] 12.4 g/dL Low 13.4 - 16.8 g/dL [facility] Immature granulocytes (Bld) [#/Vol] K/uL NINF - 0.07 K/uL [facility] Immature granulocytes/100 WBC (Bld) 0.6 % [facility] Interpretation and review of laboratory results Abnormal [facility] Lymphocytes (Bld) [#/Vol] 1.76 10*3/uL 0.83 - 3.57 K/uL [facility] Lymphocytes/100 WBC (Bld) 37.1 % [facility] MCH (RBC) [Entitic mass] 27.8 pg 26.1 - 33.3 pg [facility] MCHC (RBC) [Mass/Vol] 32.7 g/dL 31.9 - 36.5 g/dL [facility] MCV (RBC) [Entitic vol] 85.0 fL 79.0 - 94.5 fL [facility] Monocytes (Bld) [#/Vol] 0.66 10*3/uL 0.24 - 0.93 K/uL [facility] Monocytes/100 WBC (Bld) 13.9 % [facility] Neutrophils (Bld) [#/Vol] 2.16 10*3/uL 1.57 - 6.19 K/uL [facility] Nucleated RBC/100 WBC (Bld) [Ratio] 0.0 % NINF [facility] Platelet mean volume (Bld) [Entitic vol] 9.3 fL 8.7 - 12.3 fL [facility] Platelets (Bld) [#/Vol] 262 10*3/uL 146 - 337 K/uL [facility] RBC (Bld) [#/Vol] 4.46 10*6/uL [facility] Segmented neutrophils/100 WBC (Bld) 45.7 % [facility] WBC (Bld) [#/Vol] 4.74 10*3/uL 3.73 - 10. 10 K/uL [facility] CHEM 6 (LYTES, BUN CREA)on 0 08-28-2023 Anion gap [Moles/Vol] 13 mmol/L 7 - 17 mmol/L [facility] Chloride [Moles/Vol] 103 mmol/L 98 - 10 8 mmol/L [facility] CO2 [Moles/Vol] 22 mmol/L 21 - 31 mmol/L [facility] Creatinine [Mass/Vol] 1.62 mg/dL High 0.70 - 1.30 mg/dL [facility] eGFR, CKD-EPI, Male 52 Low - PINF [facility] Interpretation and review of laboratory results Abnormal [facility] Potassium [Moles/Vol] 4.3 mmol/L 3.5 - 5.0 mmol/L [facility] Sodium [Moles/Vol] 134 mmol/L Low 135 - 145 mmol/L [facility] Urea nitrogen [Mass/Vol] 22 mg/dL 7 - 25 mg/dL [facility] Urea nitrogen/Creatinine [Mass ratio] 14 mg/mg [facility] Portable XR Chest [facility] Radiology Study observation (narrative) [facility] Respiratory virus DNA+RNA NA A+probe Nom (Unsp spec)Ordered By: Dayami Harris on 08-28-2023 Adenovirus DNA ESTELITA+probe Nom (Unsp spec) Not detected Not Detected [facility] B. parapertussis DNA ESTELITA+probe Ql (Unsp spec) Not detected Not Detected [facility] B. pertussis DNA ESTELITA+probe Ql (Unsp spec) Not detected Not Detected [facility] C. pneumoniae DNA ESTELITA+probe Ql (Unsp spec) Not detected Not Detected [facility] FLUAV RNA ESTELITA+probe Ql (Unsp spec) Not detected Not Detected [facility] FLUBV RNA ESTELITA+probe Ql (Unsp spec) Not detected Not Detected [facility] HCoV 229E RNA ESTELITA+non-probe Ql (Nph) Not detected Not [facility]ed [facility] HCoV HKU1 RNA ESTELITA+non-probe Ql (Nph) Not detected Not Detected [facility] HCoV NL63 RNA ESTELITA+non-probe Ql (Nph) Not detected Not Detected [facility] HCoV OC43 RNA ESTELITA+non-probe Ql (Nph) Not detected Not Detected [facility] hMPV A RNA ESTELITA+probe Ql (Unsp spec) Not detected Not Detected [facility] Interpretation and review of laboratory results Normal [facility] M. pneumoniae DNA SETELITA+probe Ql (Unsp spec) Not detected Not Detected [facility] Parainfluenza virus 1 RNA ESTELITA+probe Ql (Unsp spec) Not detected Not Detected [facility] Parainfluenza virus 2 RNA ESTELITA+probe Ql (Unsp spec) Not detected Not Detected [facility] Parainfluenza virus 3 RNA ESTELITA+probe Ql (Unsp spec) Not detected Not Detected [facility] Parainfluenza virus 4 RNA ESTELITA+probe Ql (Unsp spec) Not detected Not Detected [facility] Rhinovirus+Enterovirus RNA ESTELITA+probe Ql (Unsp spec) Not detected Not Detected [facility] RSV RNA ESTELITA+probe Ql (Unsp spec) Not detected Not Detected [facility] SARS-CoV-2 (COVID-19) RNA ESTELITA+probe Ql (Unsp spec) Not detected NOT DETECTED [facility]-28-[facility]23 Albumin [Mass/Vol] 4.0 g/dL Normal 3.4-5.0 [facility] Comment on above: Performed By: #### C MP #### [facility] [address] [place] [address] Dr. Dwight Waters ALKALINE PHOSPHAon ALP [Catalytic activity/Vol] 106 U/L Normal 46-116 [facility] Comment on above: Performed By: #### F [id number] #### [facility] [address] [place] [address] Dr. Dwight Waters BILIRUBIN CONJUGATED (DIRECT )on 04-28-2023 BILI, CONJUGATED 0.3 mg/dL Critically high 0.0-0.2 [facility] Comment on above: Performed By: #### C MP #### [facility] [address] [place] [address] Dr. Dwight Waters BILIRUBIN TOTALon 04-28-2023 Bilirubin [Mass/Vol] 1.4 mg/dL Critically high 0.2-1.0 [facility] Comment on above: Performed By: #### C MP #### [facility] [address] [place] [address] Dr. Dwight Waters BUNon 04-28-2023 Urea nitrogen [Mass/Vol] 12.0 mg/dL Normal 7.0-18.0 [facility] Comment on above: Performed By: #### U RTPCR #### [facility] [address] [place] [address] Dr. Dwight Waters CALCIUMon 04-28-2023 Calcium [Mass/Vol] 9.3 mg/dL Normal 8.5-10.1 [facility] Comment on above: Performed By: #### U RTPCR #### [facility] [address] [place] [address] Dr. Dwight Waters CBC AUTO DIFFon 04-28-2023 BASO # 0.1 103/ul Normal 0.0-0.1 [facility] Comment on above: Performed By: #### C BC #### [facility] [address] [place] [address] Dr. Dwight Waters Basophils/100 WBC (Bld) 0.9 % Normal 0.2-2.0 [facility] Comment on above: Performed By: #### C BC #### [facility] [address] [place] [address] Dr. Dwight Waters EO # 0.2 103/ul Normal 0.0-0.7 [facility] Comment on above: Performed By: #### C BC #### [facility] [address] [place] [address] Dr. Dwight Waters Eosinophils/100 WBC (Bld) 3.8 % Normal 0.9-7.0 [facility] Comment on above: Performed By: #### C BC #### [facility] [address] [place] [address] Dr. Dwight Waters Erythrocyte distribution width (RBC) [Ratio] 12.5 % Normal 11.0-15.0 [facility] Comment on above: Performed By: #### C BC #### [facility] [address] [place] [address] Dr. Dwight Waters Hematocrit (Bld) [Volume fraction] 49.8 % Normal 42.0-54.0 [facility] Comment on above: Performed By: #### C BC #### [facility] [address] [place] [address] Dr. Dwight Waters Hemoglobin (Bld) [Mass/Vol] 16.4 g/dL Normal 14.0-18.0 [facility] Comment on above: Performed By: #### C BC #### [facility] [address] [place] [address] Dr. Dwight Waters IG # 0.01 10e3/ul Normal 0.00-0.03 [facility] Comment on above: Performed By: #### C BC #### [facility] [address] [place] [address] Dr. Dwight Waters IG % 0.2 % Normal 0.0-0.5 [facility] Comment on above: Performed By: #### C BC #### [facility] [address] [place] [address] Dr. Dwight Waters LYMPH # 2.1 103/ul Normal 1.2-3.8 [facility] Comment on above: Performed By: #### C BC #### [facility] [address] [place] [address] Dr. Dwight Waters Lymphocytes/100 WBC (Bld) 39.1 % Normal 20.5-60.0 [facility] Comment on above: Performed By: #### C BC #### [facility] [address] [place] [address] Dr. Dwight Waters MANUAL DIFF REQ NO Normal [facility] Comment on above: Performed By: #### C BC #### [facility] [address] [place] [address] Dr. Dwight Waters MCH (RBC) [Entitic mass] 28.6 pg Normal 25.9-34.0 [facility] Comment on above: Performed By: #### C BC #### [facility] [address] [place] [address] Dr. Dwight Waters MCHC (RBC) [Mass/Vol] 32.9 g/dL Normal 29.9-35.2 [facility] Comment on above: Performed By: #### C BC #### [facility] [address] [id number] [address] Dwight Waters MCV (RBC) [Entitic vol] 86.9 fL Normal 80.0-94.0 [facility] Comment on above: Performed By: #### C BC #### [facility] [address] [address] [address] Dwight Waters MONO # 0.6 103/ul Normal 0.3-0.8 [facility] Comment on above: Performed By: #### C BC #### [facility] [address] [place] [address] Dr. Dwight Waters Monocytes/100 WBC (Bld) 10.6 % Normal 1.7-12.0 [facility] Comment on above: Performed By: #### C BC #### [facility] [address] [place] [address] Dr. Dwight Waters NEUT # 2.5 103/ul Normal 1.4-6.5 [facility] Comment on above: Performed By: #### C BC #### [facility] [address] [place] [address] Dr. Dwight Waters Neutrophils/100 WBC (Bld) 45.4 % Normal 43.0-75.0 [facility] Comment on above: Performed By: #### C BC #### [facility] [address] [place] [address] Dr. Dwight Waters Platelet mean volume (Bld) [Entitic vol] 9.3 fL Critically low 9.5-13.5 [facility] Comment on above: Performed By: #### C BC #### [facility] [address] [place] [address] Dr. Dwight Waters PLT 248 103/ul Normal 150-450 [facility] Comment on above: Performed By: #### C BC #### [facility] [address] [place], [place] [id number] Dr. Dwight Waters RBC 5.73 106/ul Normal 4.70-6.10 [facility] Comment on above: Performed By: #### C BC #### [facility] [address] [place] [address] Dr. Dwight Waters WBC 5.5 103/ul Normal 4.0-11.0 [facility] Comment on above: Performed By: #### C BC #### [facility] [address] [place] [address] Dr. Dwight Waters CHLORIDEon 04-28-2023 Chloride [Moles/Vol] 107 mmol/L Normal 98-107 [facility] Comment on above: Performed By: #### U RTPCR #### [facility] [address] [place] [address] Dr. Dwight Waters CO2on 04-28-2023 CO2 [Moles/Vol] 28.9 mmol/L Normal 21.0-32.0 [facility] Comment on above: Performed By: #### U RTPCR #### [facility] [address] [place] [address] Dr. Dwight Waters CREATININEon 04-28-2023 Creatinine [Mass/Vol] 1.17 mg/dL Normal 0.70-1.30 [facility] Comment on above: Performed By: #### U RTPCR #### [facility] [address] [place] [address] Dr. Dwight Waters EGFR-AF CHADIAN >60 Normal >=60 [facility] Comment on above: Performed By: #### U RTPCR #### [facility] [address] [place] [address] Dr. Dwight Waters EGFR-NON AF CHADIAN >60 Normal >=60 [facility] Comment on above: Performed By: #### U RTPCR #### [facility] [address] [place] [address] Dr. Dwight Waters GGTon 04-28-2023 Gamma glutamyl transferase [Catalytic activity/Vol] 27 U/L Normal 15-85 [facility] Comment on above: Performed By: #### U RTPCR #### [facility] [address] [place] [address] Dr. Dwight Waters GLUCOSE BLOODon 04-28-2023 Glucose [Mass/Vol] 110 mg/dL Critically high 74-106 [facility] Comment on above: Performed By: #### U RTPCR #### [facility] [address] [place] [address] Dr. Dwight Waters MAGNESIUMon 04-28-2023 Magnesium [Mass/Vol] 1.7 mg/dL Critically low 1.8-2.4 [facility] Comment on above: Performed By: #### U RTPCR #### [facility] [address] [place] [address] Dr. Dwight Waters NAon 04-28-2023 Sodium [Moles/Vol] 144 mmol/L Normal 136-145 [facility] Comment on above: Performed By: #### U RTPCR #### [facility] [address] [place] [address] Dr. Dwight Waters PHOSPHORUSon 04-28-2023 Phosphate [Mass/Vol] 3.2 mg/dL Normal 2.6-4.7 [facility] Comment on above: Performed By: #### U RTPCR #### [facility] [address] [place] [address] Dr. Dwight Waters POTASSIUMon 04-28-2023 Potassium [Moles/Vol] 4.0 mmol/L Normal 3.5-5.1 [facility] Comment on above: Performed By: #### U RTPCR #### [facility] [address] [place] [address] Dr. Dwight Waters SGOTon 04-28-2023 AST [Catalytic activity/Vol] 25 U/L Normal 15-37 [facility] Comment on above: Performed By: #### C MP #### [facility] [address] [place] [address] Dr. Dwight Waters SGPTon 04-28-2023 ALT [Catalytic activity/Vol] 40 U/L Normal 16-63 [facility] Comment on above: Performed By: #### C MP #### [facility] [address] [place] [address] Dr. Dwight Waters URINE T PROTEIN CREAT RATIOo n 04-28-2023 Protein (U) [Mass/Vol] 10.1 mg/dL Normal <=12.0 [facility] Comment on above: Performed By: #### U RTPCR #### [facility] [address] [place] [address] Dr. Dwight Waters UR PROT CREAT RAT 0.14 Normal [facility] Comment on above: Performed By: #### U RTPCR #### [facility] [address] [place] [address] Dr. Dwight Waters URINE CREAT 74.40 mg/dL Normal 20.00-300.00 [facility] Comment on above: Performed By: #### U RTPCR #### [facility] [address] [place] [address] Dr. Dwight Waters BK VIRUS PCR QUANTon 023 BKV DNA QUANT PCR PLASMA Negative Normal Negative [facility] Comment on above: Result Comment: No B K DNA detected. . The linear range of the assay is 22 - 100,000,000 IU/mL. Performed By: #### B KVIRUS #### [facility] [address] [place] [address] Dr. Dwight Waters Log10 BKV DNA Plasma Normal [facility] Comment on above: Performed By: #### B KVIRUS #### [facility] [address] [place] [address] Dr. Dwight Waters FK506 (TACROLIMUS) WHOLE BLO ODon 03-04-2023 Tacrolimus (FK506), Blood 5.9 ng/mL Normal 2.0-20.0 [facility] Comment on above: Result Comment: Trou gh (immediately following transplant) 15.0 . Trough (steady state, 2 weeks or more after transplant): 3.0 - 8.0 . Performed by LC-MS/MS technology. Performed By: #### C MP #### [facility] [address] [place] [address] Dr. Dwight Waters ALBUMINon 03-02-2023 Albumin [Mass/Vol] 3.9 g/dL Normal 3.4-5.0 [facility] Comment on above: Performed By: #### U RTPCR #### [facility] [address] [place] [address] Dr. Dwight Waters ALKALINE PHOSPHAon ALP [Catalytic activity/Vol] 105 U/L Normal 46-116 [facility] Comment on above: Performed By: #### U RTPCR #### [facility] [address] [place] [address] Dr. Dwight Waters BILIRUBIN CONJUGATED (DIRECT )on 03-02-2023 BILI, CONJUGATED 0.2 mg/dL Normal 0.0-0.2 [facility] Comment on above: Performed By: #### U RTPCR #### [facility] [address] [place] [address] Dr. Dwight Waters BILIRUBIN TOTALon 03-02-2023 Bilirubin [Mass/Vol] 0.9 mg/dL Normal 0.2-1.0 [facility] Comment on above: Performed By: #### U RTPCR #### [facility] [address] [place] [address] Dr. Dwight Waters CBC AUTO DIFFon 03-02-2023 BASO # 0.1 103/ul Normal 0.0-0.1 [facility] Comment on above: Performed By: #### C BC #### [facility] [address] [place] [address] Dr. Dwight Waters Basophils/100 WBC (Bld) 0.9 % Normal 0.2-2.0 [facility] Comment on above: Performed By: #### C BC #### [facility] [address] [place] [address] Dr. Dwight Waters EO # 0.2 103/ul Normal 0.0-0.7 [facility] Comment on above: Performed By: #### C BC #### [facility] [address] [place] [address] Dr. Dwight Waters Eosinophils/100 WBC (Bld) 3.5 % Normal 0.9-7.0 [facility] Comment on above: Performed By: #### C BC #### [facility] [address] [place] [address] Dr. Dwight Waters Erythrocyte distribution width (RBC) [Ratio] 12.7 % Normal 11.0-15.0 [facility] Comment on above: Performed By: #### C BC #### [facility] [address] [place] [address] Dr. Dwight Waters Hematocrit (Bld) [Volume fraction] 48.2 % Normal 42.0-54.0 [facility] Comment on above: Performed By: #### C BC #### [facility] [address] [place] [address] Dr. Dwight Waters Hemoglobin (Bld) [Mass/Vol] 15.9 g/dL Normal 14.0-18.0 [facility] Comment on above: Performed By: #### C BC #### [facility] [address] [place] [address] Dr. Dwight Waters IG # 0.01 10e3/ul Normal 0.00-0.03 [facility] Comment on above: Performed By: #### C BC #### [facility] [address] [place] [address] Dr. Dwight Waters IG % 0.2 % Normal 0.0-0.5 [facility] Comment on above: Performed By: #### C BC #### [facility] [address] [place] [address] Dr. Dwight Waters LYMPH # 2.1 103/ul Normal 1.2-3.8 [facility] Comment on above: Performed By: #### C BC #### [facility] [address] [place] [address] Dr. Dwight Waters Lymphocytes/100 WBC (Bld) 37.4 % Normal 20.5-60.0 [facility] Comment on above: Performed By: #### C BC #### [facility] [address] [place] [address] Dr. Dwight Waters MANUAL DIFF REQ NO Normal [facility] Comment on above: Performed By: #### C BC #### [facility] [address] [place] [address] Dr. Dwight Waters MCH (RBC) [Entitic mass] 28.3 pg Normal 25.9-34.0 [facility] Comment on above: Performed By: #### C BC #### [facility] [address] [place] [address] Dr. Dwight Waters MCHC (RBC) [Mass/Vol] 33.0 g/dL Normal 29.9-35.2 [facility] Comment on above: Performed By: #### C BC #### [facility] [address] [place] [address] Dr. Dwight Waters MCV (RBC) [Entitic vol] 85.8 fL Normal 80.0-94.0 [facility] Comment on above: Performed By: #### C BC #### [facility] [address] [place] [address] Dr. Dwight Waters MONO # 0.6 103/ul Normal 0.3-0.8 [facility] Comment on above: Performed By: #### C BC #### [facility] [address] [place] [address] Dr. Dwight Waters Monocytes/100 WBC (Bld) 10.2 % Normal 1.7-12.0 [facility] Comment on above: Performed By: #### C BC #### [facility] [address] [place] [address] Dr. Dwight Waters NEUT # 2.7 103/ul Normal 1.4-6.5 [facility] Comment on above: Performed By: #### C BC #### [facility] [address] [place] [address] Dr. Dwight Waters Neutrophils/100 WBC (Bld) 47.8 % Normal 43.0-75.0 [facility] Comment on above: Performed By: #### C BC #### [facility] [address] [place] [address] Dr. Dwight Waters Platelet mean volume (Bld) [Entitic vol] 9.3 fL Critically low 9.5-13.5 [facility] Comment on above: Performed By: #### C BC #### [facility] [address] [place] [address] Dr. Dwight Waters PLT 241 103/ul Normal 150-450 [facility] Comment on above: Performed By: #### C BC #### [facility] [address] [place] [address] Dr. Dwight Waters RBC 5.62 106/ul Normal 4.70-6.10 [facility] Comment on above: Performed By: #### C BC #### [facility] [address] [place] [address] Dr. Dwight Waters WBC 5.7 103/ul Normal 4.0-11.0 [facility] Comment on above: Performed By: #### C BC #### [facility] [address] [place] [address] Dr. Dwight Waters GGTon 03-02-2023 Gamma glutamyl transferase [Catalytic activity/Vol] 25 U/L Normal 15-85 [facility] Comment on above: Performed By: #### U RTPCR #### [facility] [address] [place] [address] Dr. Dwight Waters MAGNESIUMon 03-02-2023 Magnesium [Mass/Vol] 1.6 mg/dL Critically low 1.8-2.4 [facility] Comment on above: Performed By: #### U RTPCR #### [facility] [address] [place] [address] Dr. Dwight Waters PHOSPHORUSon 03-02-2023 Phosphate [Mass/Vol] 3.6 mg/dL Normal 2.6-4.7 [facility] Comment on above: Performed By: #### U RTPCR #### [facility] [address] [place] [address] Dr. Dwight Waters PROF CHEM 8 (BAS METB)on Anion gap [Moles/Vol] 9.4 mmol/L Normal [facility] Comment on above: Performed By: #### U RTPCR #### [facility] [address] [place] [address] Dr. Dwight Waters Calcium [Mass/Vol] 9.3 mg/dL Normal 8.5-10.1 [facility] Comment on above: Performed By: #### U RTPCR #### [facility] [address] [place] [address] Dr. Dwight Waters Chloride [Moles/Vol] 108 mmol/L Critically high 98-107 [facility] Comment on above: Performed By: #### U RTPCR #### [facility] [address] [address] [address] Dwight Waters CO2 [Moles/Vol] 27.2 mmol/L Normal 21.0-32.0 [facility] Comment on above: Performed By: #### U RTPCR #### [facility] [address] [address] [address] Dwight Waters Creatinine [Mass/Vol] 1.12 mg/dL Normal 0.70-1.30 [facility] Comment on above: Performed By: #### U RTPCR #### [facility] [address] [address] [address] Dwight Waters EGFR-AF CHADIAN >60 Normal >=60 [facility] Comment on above: Performed By: #### U RTPCR #### [facility] [address] [place] [address] Dr. Dwight Waters EGFR-NON AF CHADIAN >60 Normal >=60 [facility] Comment on above: Performed By: #### U RTPCR #### [facility] [address] [address] [address] Dwight Waters Glucose [Mass/Vol] 113 mg/dL Critically high 74-106 [facility] Comment on above: Performed By: #### U RTPCR #### [facility] [address] [address] [address] Dwight Waters Potassium [Moles/Vol] 3.6 mmol/L Normal 3.5-5.1 [facility] Comment on above: Performed By: #### U RTPCR #### [facility] [address] [address] [address] Dwight Waters Sodium [Moles/Vol] 141 mmol/L Normal 136-145 [facility] Comment on above: Performed By: #### U RTPCR #### [facility] [address] [address] [address] wDight Waters Urea nitrogen [Mass/Vol] 14.0 mg/dL Normal 7.0-18.0 [facility] Comment on above: Performed By: #### U RTPCR #### [facility] [address] [address] [address] Dwight Waters Urea nitrogen/Creatinine [Mass ratio] 12.5 mg/mg Normal [facility] Comment on above: Performed By: #### U RTPCR #### [facility] [address] [place] [address] Dr. Dwight Waters SGOTon 03-02-2023 AST [Catalytic activity/Vol] 20 U/L Normal 15-37 [facility] Comment on above: Performed By: #### U RTPCR #### [facility] [address] [place] [address] Dr. Dwight Waters SGPTon 03-02-2023 ALT [Catalytic activity/Vol] 30 U/L Normal 16-63 [facility] Comment on above: Performed By: #### U RTPCR #### [facility] [address] [place] [address] Dr. Dwight Waters URINE T PROTEIN CREAT RATIOo n 03-02-2023 Protein (U) [Mass/Vol] 10.3 mg/dL Normal <=12.0 [facility] Comment on above: Performed By: #### U RTPCR #### [facility] [address] [place] [address] Dr. Dwight Waters UR PROT CREAT RAT 0.15 Normal [facility] Comment on above: Performed By: #### U RTPCR #### [facility] [address] [place] [address] Dr. Dwight Waters URINE CREAT 68.96 mg/dL Normal 20.00-300.00 [facility] Comment on above: Performed By: #### U RTPCR #### [facility] [address] [place] [address] Dr. Dwight Waters BK VIRUS PCR QUANTon 023 BKV DNA QUANT PCR PLASMA Negative Normal Negative [facility] Comment on above: Result Comment: No B K DNA detected. . The linear range of the assay is 22 - 100,000,000 IU/mL. Performed By: #### C MP #### [facility] [address] [place] [address] Dr. Dwight Waters Log10 BKV DNA Plasma Normal [facility] Comment on above: Performed By: #### C MP #### [facility] [address] [place] [address] Dr. Dwight Waters FK506 (TACROLIMUS) WHOLE BLO ODon 12-31-2022 Tacrolimus (FK506), Blood 5.6 ng/mL Normal 2.0-20.0 [facility] Comment on above: Result Comment: Trou gh (immediately following transplant) 15.0 . Trough (steady state, 2 weeks or more after transplant): 3.0 - 8.0 . Performed by LC-MS/MS technology. Performed By: #### C MP #### [facility] [address] [place] [address] Dr. Dwight Waters ALKALINE PHOSPHAon ALP [Catalytic activity/Vol] 96 U/L Normal 46-116 [facility] Comment on above: Performed By: #### C BC #### [facility] [address] [place] [address] Dr. Dwight Waters BILIRUBIN CONJUGATED (DIRECT )on 12-29-2022 BILI, CONJUGATED 0.3 mg/dL Critically high 0.0-0.2 [facility] Comment on above: Performed By: #### C BC #### [facility] [address] [place] [address] Dr. Dwight Waters BILIRUBIN TOTALon 12-29-2022 Bilirubin [Mass/Vol] 1.1 mg/dL Critically high 0.2-1.0 [facility] Comment on above: Performed By: #### C BC #### [facility] [address] [place] [address] Dr. Dwight Waters CBC AUTO DIFFon 12-29-2022 BASO # 0.1 103/ul Normal 0.0-0.1 [facility] Comment on above: Performed By: #### C MP #### [facility] [address] [place] [address] Dr. Dwight Waters Basophils/100 WBC (Bld) 0.8 % Normal 0.2-2.0 [facility] Comment on above: Performed By: #### C MP #### [facility] [address] [place] [address] Dr. Dwight Waters EO # 0.2 103/ul Normal 0.0-0.7 [facility] Comment on above: Performed By: #### C MP #### [facility] [address] [place] [address] Dr. Dwight Waters Eosinophils/100 WBC (Bld) 3.0 % Normal 0.9-7.0 [facility] Comment on above: Performed By: #### C MP #### [facility] [address] [place] [address] Dr. Dwight Waters Erythrocyte distribution width (RBC) [Ratio] 12.9 % Normal 11.0-15.0 [facility] Comment on above: Performed By: #### C MP #### [facility] [address] [place] [address] Dr. Dwight Waters Hematocrit (Bld) [Volume fraction] 46.9 % Normal 42.0-54.0 [facility] Comment on above: Performed By: #### C MP #### [facility] [address] [place] [address] Dr. Dwight Waters Hemoglobin (Bld) [Mass/Vol] 16.1 g/dL Normal 14.0-18.0 [facility] Comment on above: Performed By: #### C MP #### [facility] [address] [place] [address] Dr. Dwight Waters IG # 0.01 10e3/ul Normal 0.00-0.03 [facility] Comment on above: Performed By: #### C MP #### [facility] [address] [place] [address] Dr. Dwight Waters IG % 0.2 % Normal 0.0-0.5 [facility] Comment on above: Performed By: #### C MP #### [facility] [address] [place] [address] Dr. Dwight Waters LYMPH # 1.8 103/ul Normal 1.2-3.8 [facility] Comment on above: Performed By: #### C MP #### [facility] [address] [place] [address] Dr. Dwight Waters Lymphocytes/100 WBC (Bld) 27.9 % Normal 20.5-60.0 [facility] Comment on above: Performed By: #### C MP #### [facility] [address] [place] [address] Dr. Dwight Waters MANUAL DIFF REQ NO Normal [facility] Comment on above: Performed By: #### C MP #### [facility] [address] [place] [address] Dr. Dwight Waters MCH (RBC) [Entitic mass] 28.5 pg Normal 25.9-34.0 [facility] Comment on above: Performed By: #### C MP #### [facility] [address] [place] [address] Dr. Dwight Waters MCHC (RBC) [Mass/Vol] 34.3 g/dL Normal 29.9-35.2 [facility] Comment on above: Performed By: #### C MP #### [facility] [address] [place] [address] Dr. Dwight Waters MCV (RBC) [Entitic vol] 83.2 fL Normal 80.0-94.0 [facility] Comment on above: Performed By: #### C MP #### [facility] [address] [place] [address] Dr. Dwight Waters MONO # 0.5 103/ul Normal 0.3-0.8 [facility] Comment on above: Performed By: #### C MP #### [facility] [address] [place] [address] Dr. Dwight Waters Monocytes/100 WBC (Bld) 8.1 % Normal 1.7-12.0 [facility] Comment on above: Performed By: #### C MP #### [facility] [address] [place] [address] Dr. Dwight Waters NEUT # 3.8 103/ul Normal 1.4-6.5 [facility] Comment on above: Performed By: #### C MP #### [facility] [address] [place] [address] Dr. Dwight Waters Neutrophils/100 WBC (Bld) 60.0 % Normal 43.0-75.0 [facility] Comment on above: Performed By: #### C MP #### [facility] [address] [address] [address] Dwight Waters Platelet mean volume (Bld) [Entitic vol] 9.2 fL Critically low 9.5-13.5 [facility] Comment on above: Performed By: #### C MP #### [facility] [address] [address] [address] Dwight Waters PLT 225 103/ul Normal 150-450 [facility] Comment on above: Performed By: #### C MP #### [facility] [address] [address] [address] Dwight Waters RBC 5.64 106/ul Normal 4.70-6.10 [facility] Comment on above: Performed By: #### C MP #### [facility] [address] [place] [address] Dr. Dwight Waters WBC 6.3 103/ul Normal 4.0-11.0 [facility] Comment on above: Performed By: #### C MP #### [facility] [address] [place] [address] Dr. Dwight Waters GGTon 12-29-2022 Gamma glutamyl transferase [Catalytic activity/Vol] 24 U/L Normal 15-85 [facility] Comment on above: Performed By: #### C MP #### [facility] [address] [place] [address] Dr. Dwight Waters LIPID PROFILEon 12-29-2022 CHOL-HDL RATIO NORM SEE BELOW Normal [facility] Comment on above: Result Comment: 3.3 - 4.4 LOW RISK 4.4 - 7.1 AVERAGE RISK 7.1 - 11.0 MODERATE RISK >11.0 HIGH RISK Performed By: #### U RTPCR #### [facility] [address] [place] [address] Dr. Dwight Waters Cholesterol [Mass/Vol] 87 mg/dL Normal <=200 [facility] Comment on above: Performed By: #### U RTPCR #### [facility] [address] [place] [address] Dr. Dwight Waters Cholesterol in HDL [Mass/Vol] 44 mg/dL Normal 40-60 [facility] Comment on above: Performed By: #### U RTPCR #### [facility] [address] [address] [address] Dwight Waters Cholesterol in LDL [Mass/Vol] 33.0 mg/dL Normal [facility] Comment on above: Performed By: #### U RTPCR #### [facility] [address] [address] [address] Dwight Waters Cholesterol.total/Chol esterol in HDL [Mass ratio] 2.0 {ratio} Normal [facility] Comment on above: Performed By: #### U RTPCR #### [facility] [address] [address] [address] Dwight Waters HDL NORMAL > or = 60 mg/dl - LO W CARDIOVASCULAR RISK <40 mg/dl - HIGH CARDIOVASCULAR RISK Normal [facility] Comment on above: Performed By: #### U RTPCR #### [facility] [address] [address] [address] Dwight Waters LDL CALC NORMAL SEE BELOW Normal [facility] Comment on above: Result Comment: <100 mg/dl OPTIMAL 100 - 129 mg/dl NEAR OR ABOVE OPTIMAL 130 - 159 mg/dl BORDERLINE HIGH 160 - 189 mg/dl HIGH >190 mg/dl VERY HIGH Performed By: #### U RTPCR #### [facility] [address] [address] [address] Dwight Waters Triglyceride [Mass/Vol] 50 mg/dL Normal <=150 [facility] Comment on above: Performed By: #### U RTPCR #### [facility] [address] [address] [address] Dwight Waters VLDL CALC 10.0 mg/dL Normal [facility] Comment on above: Performed By: #### U RTPCR #### [facility] [address] [place] [address] Dr. Dwight Waters MAGNESIUMon 12-29-2022 Magnesium [Mass/Vol] 1.6 mg/dL Critically low 1.8-2.4 [facility] Comment on above: Performed By: #### C BC #### [facility] [address] [address] [address] Dwight Waters RENAL FUNCTION PANELon 12-29 Albumin [Mass/Vol] 3.9 g/dL Normal 3.4-5.0 [facility] Comment on above: Performed By: #### C BC #### [facility] [address] [place] [address] Dr. Dwight Waters Calcium [Mass/Vol] 9.2 mg/dL Normal 8.5-10.1 [facility] Comment on above: Performed By: #### C BC #### [facility] [address] [place] [address] Dr. Dwight Waters Chloride [Moles/Vol] 109 mmol/L Critically high 98-107 [facility] Comment on above: Performed By: #### C BC #### [facility] [address] [place] [address] Dr. Dwight Waters CO2 [Moles/Vol] 27.0 mmol/L Normal 21.0-32.0 [facility] Comment on above: Performed By: #### C BC #### [facility] [address] [place] [address] Dr. Dwight Waters Creatinine [Mass/Vol] 1.02 mg/dL Normal 0.70-1.30 [facility] Comment on above: Performed By: #### C BC #### [facility] [address] [place] [address] Dr. Dwight Waters EGFR-AF CHADIAN >60 Normal >=60 [facility] Comment on above: Performed By: #### C BC #### [facility] [address] [place] [address] Dr. Dwight Waters EGFR-NON AF CHADIAN >60 Normal >=60 [facility] Comment on above: Performed By: #### C BC #### [facility] [address] [place] [address] Dr. Dwight Waters Glucose [Mass/Vol] 117 mg/dL Critically high 74-106 [facility] Comment on above: Performed By: #### C BC #### [facility] [address] [address] [address] Dwight Waters Phosphate [Mass/Vol] 3.2 mg/dL Normal 2.6-4.7 [facility] Comment on above: Performed By: #### C BC #### [facility] [address] [address] [address] Dwight Waters Potassium [Moles/Vol] 4.1 mmol/L Normal 3.5-5.1 [facility] Comment on above: Performed By: #### C BC #### [facility] [address] [address] [address] Dwight Waters Sodium [Moles/Vol] 144 mmol/L Normal 136-145 [facility] Comment on above: Performed By: #### C BC #### [facility] [address] [place] [address] Dr. Dwight Waters Urea nitrogen [Mass/Vol] 13.0 mg/dL Normal 7.0-18.0 [facility] Comment on above: Performed By: #### C BC #### [facility] [address] [place] [address] Dr. Dwight Waters SGOTon 12-29-2022 AST [Catalytic activity/Vol] 21 U/L Normal 15-37 [facility] Comment on above: Performed By: #### C BC #### [facility] [address] [place] [address] Dr. Dwight Waters SGPTon 12-29-2022 ALT [Catalytic activity/Vol] 32 U/L Normal 16-63 [facility] Comment on above: Performed By: #### C BC #### [facility] [address] [place] [address] Dr. Dwight Waters URINE T PROTEIN CREAT RATIOo n 12-29-2022 Protein (U) [Mass/Vol] 14.3 mg/dL Critically high <=12.0 [facility] Comment on above: Performed By: #### U RTPCR #### [facility] [address] [address] [address] Dwight Waters UR PROT CREAT RAT 0.17 Normal [facility] Comment on above: Performed By: #### U RTPCR #### [facility] [address] [address] [address] Dwight Waters URINE CREAT 86.58 mg/dL Normal 20.00-300.00 [facility] Comment on above: Performed By: #### U RTPCR #### [facility] [address] [address] [address] Dwight Waters FK506 (TACROLIMUS) WHOLE BLO ODon 11-06-2022 Tacrolimus (FK506), Blood 4.9 ng/mL Normal 2.0-20.0 [facility] Comment on above: Result Comment: Trou gh (immediately following transplant) 15.0 . Trough (steady state, 2 weeks or more after transplant): 3.0 - 8.0 . Performed by LC-MS/MS technology. Performed By: #### U RTPCR #### [facility] [address] [place] [address] Dr. Dwight Waters ALKALINE PHOSPHAon ALP [Catalytic activity/Vol] 86 U/L Normal 46-116 [facility] Comment on above: Performed By: #### U RTPCR #### [facility] [address] [address] [address] Dwight Waters BILIRUBIN CONJUGATED (DIRECT )on 11-04-2022 BILI, CONJUGATED 0.2 mg/dL Normal 0.0-0.2 [facility] Comment on above: Performed By: #### U RTPCR #### [facility] [address] [address] [address] Dwight Waters BILIRUBIN TOTALon 11-04-2022 Bilirubin [Mass/Vol] 0.8 mg/dL Normal 0.2-1.0 [facility] Comment on above: Performed By: #### U RTPCR #### [facility] [address] [place] [address] Dr. Dwight Waters CBC AUTO DIFFon 11-04-2022 BASO # 0.1 103/ul Normal 0.0-0.1 [facility] Comment on above: Performed By: #### U RTPCR #### [facility] [address] [address] [address] Dwight Waters Basophils/100 WBC (Bld) 0.9 % Normal 0.2-2.0 [facility] Comment on above: Performed By: #### U RTPCR #### [facility] [address] [place] [address] Dr. Dwight Waters EO # 0.2 103/ul Normal 0.0-0.7 [facility] Comment on above: Performed By: #### U RTPCR #### [facility] [address] [place] [address] Dr. Dwight Waters Eosinophils/100 WBC (Bld) 3.7 % Normal 0.9-7.0 [facility] Comment on above: Performed By: #### U RTPCR #### [facility] [address] [place] [address] Dr. Dwight Waters Erythrocyte distribution width (RBC) [Ratio] 12.9 % Normal 11.0-15.0 [facility] Comment on above: Performed By: #### U RTPCR #### [facility] [address] [place] [address] Dr. Dwight Waters Hematocrit (Bld) [Volume fraction] 48.3 % Normal 42.0-54.0 [facility] Comment on above: Performed By: #### U RTPCR #### [facility] [address] [place] [address] Dr. Dwight Waters Hemoglobin (Bld) [Mass/Vol] 15.6 g/dL Normal 14.0-18.0 [facility] Comment on above: Performed By: #### U RTPCR #### [facility] [address] [place] [address] Dr. Dwight Waters IG # 0.01 10e3/ul Normal 0.00-0.03 [facility] Comment on above: Performed By: #### U RTPCR #### [facility] [address] [place] [address] Dr. Dwight Waters IG % 0.2 % Normal 0.0-0.5 [facility] Comment on above: Performed By: #### U RTPCR #### [facility] [address] [address] [address] Dwight Waters LYMPH # 1.9 103/ul Normal 1.2-3.8 [facility] Comment on above: Performed By: #### U RTPCR #### [facility] [address] [place] [address] Dr. Dwight Waters Lymphocytes/100 WBC (Bld) 33.0 % Normal 20.5-60.0 [facility] Comment on above: Performed By: #### U RTPCR #### [facility] [address] [place] [address] Dr. Dwight Waters MANUAL DIFF REQ NO Normal [facility] Comment on above: Performed By: #### U RTPCR #### [facility] [address] [place] [address] Dr. Dwight Waters MCH (RBC) [Entitic mass] 27.6 pg Normal 25.9-34.0 [facility] Comment on above: Performed By: #### U RTPCR #### [facility] [address] [place] [address] Dr. Dwight Waters MCHC (RBC) [Mass/Vol] 32.3 g/dL Normal 29.9-35.2 [facility] Comment on above: Performed By: #### U RTPCR #### [facility] [address] [place] [address] Dr. Dwight Waters MCV (RBC) [Entitic vol] 85.5 fL Normal 80.0-94.0 [facility] Comment on above: Performed By: #### U RTPCR #### [facility] [address] [place] [address] Dr. Dwight Waters MONO # 0.5 103/ul Normal 0.3-0.8 [facility] Comment on above: Performed By: #### U RTPCR #### [facility] [address] [address] [address] Dwight Waters Monocytes/100 WBC (Bld) 8.8 % Normal 1.7-12.0 [facility] Comment on above: Performed By: #### U RTPCR #### [facility] [address] [place] [address] Dr. Dwight Waters NEUT # 3.1 103/ul Normal 1.4-6.5 [facility] Comment on above: Performed By: #### U RTPCR #### [facility] [address] [place] [address] Dr. Dwight Waters Neutrophils/100 WBC (Bld) 53.4 % Normal 43.0-75.0 [facility] Comment on above: Performed By: #### U RTPCR #### [facility] [address] [place] [address] Dr. Dwight Waters Platelet mean volume (Bld) [Entitic vol] 9.2 fL Critically low 9.5-13.5 [facility] Comment on above: Performed By: #### U RTPCR #### [facility] [address] [place] [address] Dr. Dwight Waters PLT 255 103/ul Normal 150-450 [facility] Comment on above: Performed By: #### U RTPCR #### [facility] [address] [place] [address] Dr. Dwight Waters RBC 5.65 106/ul Normal 4.70-6.10 [facility] Comment on above: Performed By: #### U RTPCR #### [facility] [address] [place] [address] Dr. Dwight Waters WBC 5.7 103/ul Normal 4.0-11.0 [facility] Comment on above: Performed By: #### U RTPCR #### [facility] [address] [place] [address] Dr. Dwight Waters GGTon 11-04-2022 Gamma glutamyl transferase [Catalytic activity/Vol] 22 U/L Normal 15-85 [facility] Comment on above: Performed By: #### U RTPCR #### [facility] [address] [place] [address] Dr. Dwight Waters MAGNESIUMon 11-04-2022 Magnesium [Mass/Vol] 1.8 mg/dL Normal 1.8-2.4 [facility] Comment on above: Performed By: #### U RTPCR #### [facility] [address] [address] [address] Dwight Waters RENAL FUNCTION PANELon 11-04 Albumin [Mass/Vol] 3.8 g/dL Normal 3.4-5.0 [facility] Comment on above: Performed By: #### U RTPCR #### [facility] [address] [place] [address] Dr. Dwight Waters Calcium [Mass/Vol] 9.3 mg/dL Normal 8.5-10.1 [facility] Comment on above: Performed By: #### U RTPCR #### [facility] [address] [place] [address] Dr. Dwight Waters Chloride [Moles/Vol] 107 mmol/L Normal 98-107 [facility] Comment on above: Performed By: #### U RTPCR #### [facility] [address] [place] [address] Dr. Dwight Waters CO2 [Moles/Vol] 29.2 mmol/L Normal 21.0-32.0 [facility] Comment on above: Performed By: #### U RTPCR #### [facility] [address] [place] [address] Dr. Dwight Waters Creatinine [Mass/Vol] 1.07 mg/dL Normal 0.70-1.30 [facility] Comment on above: Performed By: #### U RTPCR #### [facility] [address] [place] [address] Dr. Dwight Waters EGFR-AF CHADIAN >60 Normal >=60 [facility] Comment on above: Performed By: #### U RTPCR #### [facility] [address] [place] [address] Dr. Dwight Waters EGFR-NON AF CHADIAN >60 Normal >=60 [facility] Comment on above: Performed By: #### U RTPCR #### [facility] [address] [place] [address] Dr. Dwight Waters Glucose [Mass/Vol] 106 mg/dL Normal 74-106 [facility] Comment on above: Performed By: #### U RTPCR #### [facility] [address] [address] [address] Dwight Waters Phosphate [Mass/Vol] 2.8 mg/dL Normal 2.6-4.7 [facility] Comment on above: Performed By: #### U RTPCR #### [facility] [address] [place] [address] Dr. Dwight Waters Potassium [Moles/Vol] 4.1 mmol/L Normal 3.5-5.1 [facility] Comment on above: Performed By: #### U RTPCR #### [facility] [address] [place] [address] Dr. Dwight Waters Sodium [Moles/Vol] 143 mmol/L Normal 136-145 [facility] Comment on above: Performed By: #### U RTPCR #### [facility] [address] [place] [address] Dr. Dwight Waters Urea nitrogen [Mass/Vol] 12.0 mg/dL Normal 7.0-18.0 [facility] Comment on above: Performed By: #### U RTPCR #### [facility] [address] [place] [address] Dr. Dwight Waters SGOTon 11-04-2022 AST [Catalytic activity/Vol] 19 U/L Normal 15-37 [facility] Comment on above: Performed By: #### U RTPCR #### [facility] [address] [place] [address] Dr. Dwight Waters SGPTon 11-04-2022 ALT [Catalytic activity/Vol] 28 U/L Normal 16-63 [facility] Comment on above: Performed By: #### U RTPCR #### [facility] [address] [place] [address] Dr. Dwight Waters URINE T PROTEIN CREAT RATIOo n 11-04-2022 Protein (U) [Mass/Vol] 10.7 mg/dL Normal <=12.0 [facility] Comment on above: Performed By: #### U RTPCR #### [facility] [address] [place] [address] Dr. Dwight Waters UR PROT CREAT RAT 0.13 Normal [facility] Comment on above: Performed By: #### U RTPCR #### [facility] [address] [place] [address] Dr. Dwight Waters URINE CREAT 84.50 mg/dL Normal 20.00-300.00 [facility] Comment on above: Performed By: #### U RTPCR #### [facility] [address] [place] [address] Dr. Dwight Waters FK506 (TACROLIMUS) WHOLE BLO ODon 09-18-2022 Tacrolimus (FK506), Blood 4.6 ng/mL Normal 2.0-20.0 [facility] Comment on above: Result Comment: Trou gh (immediately following transplant) 15.0 . Trough (steady state, 2 weeks or more after transplant): 3.0 - 8.0 . Performed by LC-MS/MS technology. Performed By: #### U RTPCR #### [facility] [address] [place] [address] Dr. Dwight Waters BK VIRUS PCR QUANTon 022 BKV DNA QUANT PCR PLASMA Negative Normal Negative [facility] Comment on above: Result Comment: No B K DNA detected. . The linear range of the assay is 22 - 100,000,000 IU/mL. Performed By: #### U RTPCR #### [facility] [address] [place] [address] Dr. Dwight Waters Log10 BKV DNA Plasma Normal [facility] Comment on above: Performed By: #### U RTPCR #### [facility] [address] [place] [address] Dr. Dwight Waters ALKALINE PHOSPHAon ALP [Catalytic activity/Vol] 92 U/L Normal 46-116 [facility] Comment on above: Performed By: #### U RTPCR #### [facility] [address] [place] [address] Dr. Dwight Waters BILIRUBIN CONJUGATED (DIRECT )on 09-15-2022 BILI, CONJUGATED 0.3 mg/dL Critically high 0.0-0.2 [facility] Comment on above: Performed By: #### U RTPCR #### [facility] [address] [place] [address] Dr. Dwight Waters BILIRUBIN TOTALon 09-15-2022 Bilirubin [Mass/Vol] 1.1 mg/dL Critically high 0.2-1.0 [facility] Comment on above: Performed By: #### U RTPCR #### [facility] [address] [address] [address] Dwight Waters CBC AUTO DIFFon 09-15-2022 BASO # 0.1 103/ul Normal 0.0-0.1 [facility] Comment on above: Performed By: #### C BC #### [facility] [address] [place] [address] Dr. Dwight Waters Basophils/100 WBC (Bld) 0.8 % Normal 0.2-2.0 [facility] Comment on above: Performed By: #### C BC #### [facility] [address] [place] [address] Dr. Dwight Waters EO # 0.2 103/ul Normal 0.0-0.7 [facility] Comment on above: Performed By: #### C BC #### [facility] [address] [place] [address] Dr. Dwight Waters Eosinophils/100 WBC (Bld) 3.5 % Normal 0.9-7.0 [facility] Comment on above: Performed By: #### C BC #### [facility] [address] [place] [address] Dr. Dwight Waters Erythrocyte distribution width (RBC) [Ratio] 13.0 % Normal 11.0-15.0 [facility] Comment on above: Performed By: #### C BC #### [facility] [address] [place] [address] Dr. Dwight Waters Hematocrit (Bld) [Volume fraction] 50.0 % Normal 42.0-54.0 [facility] Comment on above: Performed By: #### C BC #### [facility] [address] [place] [address] Dr. Dwight Waters Hemoglobin (Bld) [Mass/Vol] 16.0 g/dL Normal 14.0-18.0 [facility] Comment on above: Performed By: #### C BC #### [facility] [address] [place] [address] Dr. Dwight Waters IG # 0.02 10e3/ul Normal 0.00-0.03 [facility] Comment on above: Performed By: #### C BC #### [facility] [address] [place] [address] Dr. Dwight Waters IG % 0.3 % Normal 0.0-0.5 [facility] Comment on above: Performed By: #### C BC #### [facility] [address] [place] [address] Dr. Dwight Waters LYMPH # 1.8 103/ul Normal 1.2-3.8 [facility] Comment on above: Performed By: #### C BC #### [facility] [address] [place] [address] Dr. Dwight Waters Lymphocytes/100 WBC (Bld) 26.5 % Normal 20.5-60.0 [facility] Comment on above: Performed By: #### C BC #### [facility] [address] [place] [address] Dr. Dwight Waters MANUAL DIFF REQ NO Normal [facility] Comment on above: Performed By: #### C BC #### [facility] [address] [place] [address] Dr. Dwight Waters MCH (RBC) [Entitic mass] 28.1 pg Normal 25.9-34.0 [facility] Comment on above: Performed By: #### C BC #### [facility] [address] [place] [address] Dr. Dwight Waters MCHC (RBC) [Mass/Vol] 32.0 g/dL Normal 29.9-35.2 [facility] Comment on above: Performed By: #### C BC #### [facility] [address] [place] [address] Dr. Dwight Waters MCV (RBC) [Entitic vol] 87.9 fL Normal 80.0-94.0 [facility] Comment on above: Performed By: #### C BC #### [facility] [address] [address] [address] Dwight Waters MONO # 0.5 103/ul Normal 0.3-0.8 [facility] Comment on above: Performed By: #### C BC #### [facility] [address] [place] [address] Dr. Dwight Waters Monocytes/100 WBC (Bld) 8.1 % Normal 1.7-12.0 [facility] Comment on above: Performed By: #### C BC #### [facility] [address] [place] [address] Dr. Dwight Waters NEUT # 4.0 103/ul Normal 1.4-6.5 [facility] Comment on above: Performed By: #### C BC #### [facility] [address] [place] [address] Dr. Dwight Waters Neutrophils/100 WBC (Bld) 60.8 % Normal 43.0-75.0 [facility] Comment on above: Performed By: #### C BC #### [facility] [address] [place] [address] Dr. Dwight Waters Platelet mean volume (Bld) [Entitic vol] 9.4 fL Critically low 9.5-13.5 [facility] Comment on above: Performed By: #### C BC #### [facility] [address] [place] [address] Dr. Dwight Waters PLT 265 103/ul Normal 150-450 [facility] Comment on above: Performed By: #### C BC #### [facility] [address] [place] [address] Dr. Dwight Waters RBC 5.69 106/ul Normal 4.70-6.10 [facility] Comment on above: Performed By: #### C BC #### [facility] [address] [place] [address] Dr. Dwight Waters WBC 6.6 103/ul Normal 4.0-11.0 [facility] Comment on above: Performed By: #### C BC #### [facility] [address] [place] [address] Dr. Dwight Waters GGTon 09-15-2022 Gamma glutamyl transferase [Catalytic activity/Vol] 23 U/L Normal 15-85 [facility] Comment on above: Performed By: #### U RTPCR #### [facility] [address] [place] [address] Dr. Dwight Waters MAGNESIUMon 09-15-2022 Magnesium [Mass/Vol] 1.8 mg/dL Normal 1.8-2.4 [facility] Comment on above: Performed By: #### U RTPCR #### [facility] [address] [place] [address] Dr. Dwight Waters RENAL FUNCTION PANELon 09-15 Albumin [Mass/Vol] 4.1 g/dL Normal 3.4-5.0 [facility] Comment on above: Performed By: #### C BC #### [facility] [address] [place] [address] Dr. Dwight Waters Calcium [Mass/Vol] 9.3 mg/dL Normal 8.5-10.1 [facility] Comment on above: Performed By: #### C BC #### [facility] [address] [place] [address] Dr. Dwight Waters Chloride [Moles/Vol] 107 mmol/L Normal 98-107 [facility] Comment on above: Performed By: #### C BC #### [facility] [address] [place] [address] Dr. Dwight Waters CO2 [Moles/Vol] 25.6 mmol/L Normal 21.0-32.0 [facility] Comment on above: Performed By: #### C BC #### [facility] [address] [place] [address] Dr. Dwight Waters Creatinine [Mass/Vol] 1.01 mg/dL Normal 0.70-1.30 [facility] Comment on above: Performed By: #### C BC #### [facility] [address] [place] [address] Dr. Dwight Waters EGFR-AF CHADIAN >60 Normal >=60 [facility] Comment on above: Performed By: #### C BC #### [facility] [address] [address] [address] Dwight Waters EGFR-NON AF CHADIAN >60 Normal >=60 [facility] Comment on above: Performed By: #### C BC #### [facility] [address] [address] [address] Dwight Waters Glucose [Mass/Vol] 119 mg/dL Critically high 74-106 [facility] Comment on above: Performed By: #### C BC #### [facility] [address] [address] [address] Dwight Waters Phosphate [Mass/Vol] 2.8 mg/dL Normal 2.6-4.7 [facility] Comment on above: Performed By: #### C BC #### [facility] [address] [address] [address] Dwight Waters Potassium [Moles/Vol] 4.0 mmol/L Normal 3.5-5.1 [facility] Comment on above: Performed By: #### C BC #### [facility] [address] [address] [address] Dwight Waters Sodium [Moles/Vol] 141 mmol/L Normal 136-145 [facility] Comment on above: Performed By: #### C BC #### [facility] [address] [address] [address] Dwight Waters Urea nitrogen [Mass/Vol] 15.0 mg/dL Normal 7.0-18.0 [facility] Comment on above: Performed By: #### C BC #### [facility] [address] [address] [address] Dwight Albert 09-15-2022 AST [Catalytic activity/Vol] 18 U/L Normal 15-37 [facility] Comment on above: Performed By: #### U RTPCR #### [facility] [address] [place] [address] Dr. Dwight Osei 09-15-2022 ALT [Catalytic activity/Vol] 32 U/L Normal 16-63 [facility] Comment on above: Performed By: #### C BC #### [facility] [address] [place] [address] Dr. Dwight Waters URINE T PROTEIN CREAT RATIOo n 09-15-2022 Protein (U) [Mass/Vol] 14.1 mg/dL Critically high <=12.0 [facility] Comment on above: Performed By: #### U RTPCR #### [facility] [address] [address] [address] Dwight Waters UR PROT CREAT RAT 0.14 Normal [facility] Comment on above: Performed By: #### U RTPCR #### [facility] [address] [address] [address] Dwight Waters URINE CREAT 98.89 mg/dL Normal 20.00-300.00 [facility] Comment on above: Performed By: #### U RTPCR #### [facility] [address] [address] [address] Dwight Waters US CAROTID ART BILon [...] MÓNICA JIMENEZ Date: 2022-08-28 13:20 Normal [facility] FK506 (TACROLIMUS) WHOLE BLO ODon 08-17-2022 Tacrolimus (FK506), Blood 9.9 ng/mL Normal 2.0-20.0 [facility] Comment on above: Result Comment: Trou gh (immediately following transplant) 15.0 . Trough (steady state, 2 weeks or more after transplant): 3.0 - 8.0 . Performed by LC-MS/MS technology. Performed By: #### F [id number] #### [facility] [address] [place] [address] Dr. Dwight Waters BK VIRUS PCR QUANTon 022 BKV DNA QUANT PCR PLASMA Negative Normal Negative [facility] Comment on above: Result Comment: No B K DNA detected. . The linear range of the assay is 22 - 100,000,000 IU/mL. Performed By: #### U RTPCR #### [facility] [address] [place] [address] Dr. Dwight Waters Log10 BKV DNA Plasma Normal [facility] Comment on above: Performed By: #### U RTPCR #### [facility] [address] [place] [address] Dr. Dwight Waters ALBUMINon 08-14-2022 Albumin [Mass/Vol] 4.2 g/dL Normal 3.4-5.0 [facility] Comment on above: Performed By: #### F [id number] #### [facility] [address] [place] [address] Dr. Dwight Waters ALKALINE PHOSPHAon ALP [Catalytic activity/Vol] 92 U/L Normal 46-116 [facility] Comment on above: Performed By: #### C BC #### [facility] [address] [place] [address] Dr. Dwight Waters BILIRUBIN CONJUGATED (DIRECT )on 08-14-2022 BILI, CONJUGATED 0.3 mg/dL Critically high 0.0-0.2 [facility] Comment on above: Performed By: #### F [id number] #### [facility] [address] [place] [address] Dr. Dwight Waters BILIRUBIN TOTALon 08-14-2022 Bilirubin [Mass/Vol] 1.5 mg/dL Critically high 0.2-1.0 [facility] Comment on above: Performed By: #### F [id number] #### [facility] [address] [place] [address] Dr. Dwight Waters BUNon 08-14-2022 Urea nitrogen [Mass/Vol] 11.0 mg/dL Normal 7.0-18.0 [facility] Comment on above: Performed By: #### C BC #### [facility] [address] [place] [address] Dr. Dwight Waters CALCIUMon 08-14-2022 Calcium [Mass/Vol] 9.4 mg/dL Normal 8.5-10.1 [facility] Comment on above: Performed By: #### F [id number] #### [facility] [address] [address] [address] Dwight Waters CBC AUTO DIFFon 08-14-2022 BASO # 0.0 103/ul Normal 0.0-0.1 [facility] Comment on above: Performed By: #### C MP #### [facility] [address] [address] [address] Dwight Waters Basophils/100 WBC (Bld) 0.5 % Normal 0.2-2.0 [facility] Comment on above: Performed By: #### C MP #### [facility] [address] [place] [address] Dr. Dwight Waters EO # 0.2 103/ul Normal 0.0-0.7 [facility] Comment on above: Performed By: #### C MP #### [facility] [address] [place] [address] Dr. Dwight Waters Eosinophils/100 WBC (Bld) 2.6 % Normal 0.9-7.0 [facility] Comment on above: Performed By: #### C MP #### [facility] [address] [place] [address] Dr. Dwight Waters Erythrocyte distribution width (RBC) [Ratio] 13.1 % Normal 11.0-15.0 [facility] Comment on above: Performed By: #### C MP #### [facility] [address] [place] [address] Dr. Dwight Waters Hematocrit (Bld) [Volume fraction] 47.0 % Normal 42.0-54.0 [facility] Comment on above: Performed By: #### C MP #### [facility] [address] [place] [address] Dr. Dwight Waters Hemoglobin (Bld) [Mass/Vol] 15.3 g/dL Normal 14.0-18.0 [facility] Comment on above: Performed By: #### C MP #### [facility] [address] [place] [address] Dr. Dwight Waters IG # 0.01 10e3/ul Normal 0.00-0.03 [facility] Comment on above: Performed By: #### C MP #### [facility] [address] [place] [address] Dr. Dwight Waters IG % 0.1 % Normal 0.0-0.5 [facility] Comment on above: Performed By: #### C MP #### [facility] [address] [place] [address] Dr. Dwight Waters LYMPH # 2.3 103/ul Normal 1.2-3.8 [facility] Comment on above: Performed By: #### C MP #### [facility] [address] [place] [address] Dr. Dwight Waters Lymphocytes/100 WBC (Bld) 29.8 % Normal 20.5-60.0 [facility] Comment on above: Performed By: #### C MP #### [facility] [address] [place] [address] Dr. Dwight Waters MANUAL DIFF REQ NO Normal [facility] Comment on above: Performed By: #### C MP #### [facility] [address] [place] [address] Dr. Dwight Waters MCH (RBC) [Entitic mass] 28.2 pg Normal 25.9-34.0 [facility] Comment on above: Performed By: #### C MP #### [facility] [address] [place] [address] Dr. Dwight Waters MCHC (RBC) [Mass/Vol] 32.6 g/dL Normal 29.9-35.2 [facility] Comment on above: Performed By: #### C MP #### [facility] [address] [place] [address] Dr. Dwight Waters MCV (RBC) [Entitic vol] 86.7 fL Normal 80.0-94.0 [facility] Comment on above: Performed By: #### C MP #### [facility] [address] [place] [address] Dr. Dwight Waters MONO # 0.7 103/ul Normal 0.3-0.8 [facility] Comment on above: Performed By: #### C MP #### [facility] [address] [address] [address] Dwight Waters Monocytes/100 WBC (Bld) 8.5 % Normal 1.7-12.0 [facility] Comment on above: Performed By: #### C MP #### [facility] [address] [address] [address] Dwight Waters NEUT # 4.5 103/ul Normal 1.4-6.5 [facility] Comment on above: Performed By: #### C MP #### [facility] [address] [address] [address] Dwight Waters Neutrophils/100 WBC (Bld) 58.5 % Normal 43.0-75.0 [facility] Comment on above: Performed By: #### C MP #### [facility] [address] [place] [address] Dr. Dwight Waters Platelet mean volume (Bld) [Entitic vol] 9.7 fL Normal 9.5-13.5 [facility] Comment on above: Performed By: #### C MP #### [facility] [address] [place] [address] Dr. Dwight Waters PLT 266 103/ul Normal 150-450 [facility] Comment on above: Performed By: #### C MP #### [facility] [address] [place] [address] Dr. Dwight Waters RBC 5.42 106/ul Normal 4.70-6.10 [facility] Comment on above: Performed By: #### C MP #### [facility] [address] [place] [address] Dr. Dwight Waters WBC 7.6 103/ul Normal 4.0-11.0 [facility] Comment on above: Performed By: #### C MP #### [facility] [address] [place] [address] Dr. Dwight Waters CHLORIDEon 08-14-2022 Chloride [Moles/Vol] 104 mmol/L Normal 98-107 [facility] Comment on above: Performed By: #### C BC #### [facility] [facility] [address] [place] [address] Dr. Dwight Waters CO2on 08-14-2022 CO2 [Moles/Vol] 27.9 mmol/L Normal 21.0-32.0 [facility] Comment on above: Performed By: #### C BC #### [facility] [address] [place] [address] Dr. Dwight Waters CREATININEon 08-14-2022 Creatinine [Mass/Vol] 1.08 mg/dL Normal 0.70-1.30 [facility] Comment on above: Performed By: #### C BC #### [facility] [address] [place] [address] Dr. Dwight Waters EGFR-AF CHADIAN >60 Normal >=60 [facility] Comment on above: Performed By: #### C BC #### [facility] [address] [place] [address] Dr. Dwight Waters EGFR-NON AF CHADIAN >60 Normal >=60 [facility] Comment on above: Performed By: #### C BC #### [facility] [address] [place] [address] Dr. Dwight Waters GGTon 08-14-2022 Gamma glutamyl transferase [Catalytic activity/Vol] 24 U/L Normal 15-85 [facility] Comment on above: Performed By: #### F [id number] #### [facility] [address] [place] [address] Dr. Dwight Waters GLUCOSE BLOODon 08-14-2022 Glucose [Mass/Vol] 111 mg/dL Critically high 74-106 [facility] Comment on above: Performed By: #### C BC #### [facility] [address] [place] [address] Dr. Dwight Waters MAGNESIUMon 08-14-2022 Magnesium [Mass/Vol] 1.4 mg/dL Critically low 1.8-2.4 [facility] Comment on above: Performed By: #### C BC #### [facility] [address] [place] [address] Dr. Dwight Waters NAon 08-14-2022 Sodium [Moles/Vol] 140 mmol/L Normal 136-145 [facility] Comment on above: Performed By: #### F [id number] #### [facility] [address] [place] [address] Dr. Dwight Waters PHOSPHORUSon 08-14-2022 Phosphate [Mass/Vol] 3.1 mg/dL Normal 2.6-4.7 [facility] Comment on above: Performed By: #### C BC #### [facility] [address] [place] [address] Dr. Dwight Waters POTASSIUMon 08-14-2022 Potassium [Moles/Vol] 3.5 mmol/L Normal 3.5-5.1 [facility] Comment on above: Performed By: #### C BC #### [facility] [address] [place] [address] Dr. Dwight Waters SGOTon 08-14-2022 AST [Catalytic activity/Vol] 17 U/L Normal 15-37 [facility] Comment on above: Performed By: #### F [id number] #### [facility] [address] [place] [address] Dr. Dwight Waters SGPTon 08-14-2022 ALT [Catalytic activity/Vol] 22 U/L Normal 16-63 [facility] Comment on above: Performed By: #### F [id number] #### [facility] [address] [place] [address] Dr. Dwight Waters URINE T PROTEIN CREAT RATIOo n 08-14-2022 Protein (U) [Mass/Vol] 10.7 mg/dL Normal <=12.0 [facility] Comment on above: Performed By: #### F [id number] #### [facility] [address] [place] [address] Dr. Dwight Waters UR PROT CREAT RAT 0.10 Normal [facility] Comment on above: Performed By: #### F [id number] #### [facility] [address] [place] [address] Dr. Dwight Waters URINE CREAT 104.28 mg/dL Normal 20.00-300.[address] [facility] Comment on above: Performed By: #### F [id number] #### [facility] [address] [address] [address] Dwight Waters NEPHROSTOMY TUBE REMOVALon 0 [...] Assisting physician present for entire procedure: yes [facility] Radiology Study observation (narrative) [facility] FK506 (TACROLIMUS) WHOLE BLO ODon 07-06-2022 Tacrolimus (FK506), Blood 9.5 ng/mL Normal 2.0-20.0 [facility] Comment on above: Result Comment: Trou gh (immediately following transplant) 15.0 . Trough (steady state, 2 weeks or more after transplant): 3.0 - 8.0 . Performed by LC-MS/MS technology. Performed By: #### C MP #### [facility] [address] [address] [address] Dwight Waters ALBUMINon 07-03-2022 Albumin [Mass/Vol] 3.7 g/dL Normal 3.4-5.0 [facility] Comment on above: Performed By: #### U RTPCR #### [facility] [address] [place] [address] Dr. Dwight Waters ALKALINE PHOSPHAon ALP [Catalytic activity/Vol] 76 U/L Normal 46-116 [facility] Comment on above: Performed By: #### U RTPCR #### [facility] [address] [place] [address] Dr. Dwight Waters BILIRUBIN CONJUGATED (DIRECT )on 07-03-2022 BILI, CONJUGATED 0.3 mg/dL Critically high 0.0-0.2 [facility] Comment on above: Performed By: #### C BC #### [facility] [address] [place] [address] Dr. Dwight Waters BILIRUBIN TOTALon 07-03-2022 Bilirubin [Mass/Vol] 1.4 mg/dL Critically high 0.2-1.0 [facility] Comment on above: Performed By: #### C BC #### [facility] [address] [place] [address] Dr. Dwight Waters BUNon 07-03-2022 Urea nitrogen [Mass/Vol] 15.0 mg/dL Normal 7.0-18.0 [facility] Comment on above: Performed By: #### C BC #### [facility] [address] [place] [address] Dr. Dwight Waters CALCIUMon 07-03-2022 Calcium [Mass/Vol] 9.4 mg/dL Normal 8.5-10.1 [facility] Comment on above: Performed By: #### U RTPCR #### [facility] [address] [place] [address] Dr. Dwight Waters CBC AUTO DIFFon 07-03-2022 BASO # 0.0 103/ul Normal 0.0-0.1 [facility] Comment on above: Performed By: #### U RTPCR #### [facility] [address] [place] [address] Dr. Dwight Waters Basophils/100 WBC (Bld) 0.6 % Normal 0.2-2.0 [facility] Comment on above: Performed By: #### U RTPCR #### [facility] [address] [place] [address] Dr. Dwight Waters EO # 0.2 103/ul Normal 0.0-0.7 [facility] Comment on above: Performed By: #### U RTPCR #### [facility] [address] [place] [address] Dr. Dwight Waters Eosinophils/100 WBC (Bld) 3.5 % Normal 0.9-7.0 [facility] Comment on above: Performed By: #### U RTPCR #### [facility] [address] [place] [address] Dr. Dwight Waters Erythrocyte distribution width (RBC) [Ratio] 12.9 % Normal 11.0-15.0 [facility] Comment on above: Performed By: #### U RTPCR #### [facility] [address] [place] [address] Dr. Dwight Waters Hematocrit (Bld) [Volume fraction] 44.2 % Normal 42.0-54.0 [facility] Comment on above: Performed By: #### U RTPCR #### [facility] [address] [place] [address] Dr. Dwight Waters Hemoglobin (Bld) [Mass/Vol] 14.6 g/dL Normal 14.0-18.0 [facility] Comment on above: Performed By: #### U RTPCR #### [facility] [address] [place] [address] Dr. Dwight Waters IG # 0.02 10e3/ul Normal 0.00-0.03 [facility] Comment on above: Performed By: #### U RTPCR #### [facility] [address] [place] [address] Dr. Dwight Waters IG % 0.3 % Normal 0.0-0.5 [facility] Comment on above: Performed By: #### U RTPCR #### [facility] [address] [place] [address] Dr. Dwight Waters LYMPH # 2.0 103/ul Normal 1.2-3.8 [facility] Comment on above: Performed By: #### U RTPCR #### [facility] [address] [address] [address] Dwight Waters Lymphocytes/100 WBC (Bld) 28.4 % Normal 20.5-60.0 [facility] Comment on above: Performed By: #### U RTPCR #### [facility] [address] [place] [address] Dr. Dwight Waters MANUAL DIFF REQ NO Normal [facility] Comment on above: Performed By: #### U RTPCR #### [facility] [address] [place] [address] Dr. Dwight Waters MCH (RBC) [Entitic mass] 28.6 pg Normal 25.9-34.0 [facility] Comment on above: Performed By: #### U RTPCR #### [facility] [address] [place] [address] Dr. Dwight Waters MCHC (RBC) [Mass/Vol] 33.0 g/dL Normal 29.9-35.2 [facility] Comment on above: Performed By: #### U RTPCR #### [facility] [address] [place] [address] Dr. Dwight Waters MCV (RBC) [Entitic vol] 86.7 fL Normal 80.0-94.0 [facility] Comment on above: Performed By: #### U RTPCR #### [facility] [address] [place] [address] Dr. Dwight Waters MONO # 0.6 103/ul Normal 0.3-0.8 [facility] Comment on above: Performed By: #### U RTPCR #### [facility] [address] [place] [address] Dr. Dwight Waters Monocytes/100 WBC (Bld) 9.1 % Normal 1.7-12.0 [facility] Comment on above: Performed By: #### U RTPCR #### [facility] [address] [place] [address] Dr. Dwight Waters NEUT # 4.0 103/ul Normal 1.4-6.5 [facility] Comment on above: Performed By: #### U RTPCR #### [facility] [address] [address] [address] Dwight Waters Neutrophils/100 WBC (Bld) 58.1 % Normal 43.0-75.0 [facility] Comment on above: Performed By: #### U RTPCR #### [facility] [address] [address] [address] Dwight Waters Platelet mean volume (Bld) [Entitic vol] 9.5 fL Normal 9.5-13.5 [facility] Comment on above: Performed By: #### U RTPCR #### [facility] [address] [address] [address] Dwight Waters PLT 292 103/ul Normal 150-450 [facility] Comment on above: Performed By: #### U RTPCR #### [facility] [address] [place] [address] Dr. Dwight Waters RBC 5.10 106/ul Normal 4.70-6.10 [facility] Comment on above: Performed By: #### U RTPCR #### [facility] [address] [address] [address] Dwight Waters WBC 6.9 103/ul Normal 4.0-11.0 [facility] Comment on above: Performed By: #### U RTPCR #### [facility] [address] [address] [address] Dwight Waters CHLORIDEon 07-03-2022 Chloride [Moles/Vol] 108 mmol/L Critically high 98-107 [facility] Comment on above: Performed By: #### C BC #### [facility] [address] [address] [address] Dwight Waters CO2on 07-03-2022 CO2 [Moles/Vol] 25.2 mmol/L Normal 21.0-32.0 [facility] Comment on above: Performed By: #### C BC #### [facility] [address] [address] [address] Dwight Waters CREATININEon 07-03-2022 Creatinine [Mass/Vol] 1.03 mg/dL Normal 0.70-1.30 [facility] Comment on above: Performed By: #### U RTPCR #### [facility] [address] [place] [address] Dr. Dwight Waters EGFR-AF CHADIAN >60 Normal >=60 [facility] Comment on above: Performed By: #### U RTPCR #### [facility] [address] [place] [address] Dr. Dwight Waters EGFR-NON AF CHADIAN >60 Normal >=60 [facility] Comment on above: Performed By: #### U RTPCR #### [facility] [address] [place] [address] Dr. Dwight Waters GGTon 07-03-2022 Gamma glutamyl transferase [Catalytic activity/Vol] 31 U/L Normal 15-85 [facility] Comment on above: Performed By: #### U RTPCR #### [facility] [address] [place] [address] Dr. Dwight Waters GLUCOSE BLOODon 07-03-2022 Glucose [Mass/Vol] 119 mg/dL Critically high 74-106 [facility] Comment on above: Performed By: #### U RTPCR #### [facility] [address] [place] [address] Dr. Dwight Waters MAGNESIUMon 07-03-2022 Magnesium [Mass/Vol] 1.4 mg/dL Critically low 1.8-2.4 [facility] Comment on above: Performed By: #### C BC #### [facility] [address] [place] [address] Dr. Dwight Waters NAon 07-03-2022 Sodium [Moles/Vol] 142 mmol/L Normal 136-145 [facility] Comment on above: Performed By: #### C MP #### [facility] [address] [place] [address] Dr. Dwight Waters PHOSPHORUSon 07-03-2022 Phosphate [Mass/Vol] 3.4 mg/dL Normal 2.6-4.7 [facility] Comment on above: Performed By: #### C BC #### [facility] [address] [address] [address] Dwight Waters POTASSIUMon 07-03-2022 Potassium [Moles/Vol] 4.1 mmol/L Normal 3.5-5.1 [facility] Comment on above: Performed By: #### C BC #### [facility] [address] [place] [address] Dr. Dwight Waters SGOTon 07-03-2022 AST [Catalytic activity/Vol] 14 U/L Critically low 15-37 [facility] Comment on above: Performed By: #### C BC #### [facility] [address] [address] [address] Dwight Waters SGPTon 07-03-2022 ALT [Catalytic activity/Vol] 25 U/L Normal 16-63 [facility] Comment on above: Performed By: #### C BC #### [facility] [address] [place] [address] Dr. Dwight Waters US KIDNEYSon 07-03-2022 US KIDNEYS Ultrasound kidneys, bilateral HISTORY: Transplant of kidney , pain in the right lower quadrant COMPARISON: None. TECHNIQUE: Transabdominal ultrasound imaging of both kidneys was performed. FINDINGS: The [place] kidneys are diffusely echogenic and atrophic with cortical thinning. The right kidney measures 8.3 x 3.5 x 4.07 m and the left measures 9.9 x 3.8 x 3.6 cm. No hydronephrosis of the [place] kidneys. There is a renal transplant in [...] stone involving the renal transplant. 2. Atrophic [place] kidneys. 3. Normal bladder. Electronically authenticated by: ARCELIA PIZARRO Date: 2022-07-03 17:22 Normal [facility] CT Abdomen and Pelvis WO con traston 06-27-2022 IMPRESSION: 1. Both [place] kidneys are atrophic with improvement in right-sided [...] Adrenals: Adrenal glands are unremarkable. Kidneys: Both [place] kidneys are atrophic. Interval improvement in right [place] kidney hydronephrosis since May 15, 2022. Status [...] Adrenals: Adrenal glands are unremarkable. Kidneys: Both [place] kidneys are atrophic. Interval improvement in right [place] kidney hydronephrosis since May 15, 2022. Status [...] aggressive osseous lesions. IMPRESSION IMPRESSION: 1. Both [place] kidneys are atrophic with improvement in right-sided hydronephrosis since May 15, 2022. 2. 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 No hydronephrosis. No discrete perinephric collection. 3. Partially imaged postsurgical changes related to prior liver transplant. 4. The bladder is decompressed, limiting evaluation. [facility] Radiology Study observation (narrative) [facility] CT Abdomen and Pelvis WO con trastOrdered By: Gera Lu on 06-27-2022 [facility] Work Phone: CBC AUTO DIFFon 06-18-2022 BASO # 0.0 103/ul Normal 0.0-0.1 [facility] Comment on above: Performed By: #### U RTPCR #### [facility] [address] [place] [address] Dr. Dwight Waters Basophils/100 WBC (Bld) 0.5 % Normal 0.2-2.0 [facility] Comment on above: Performed By: #### U RTPCR #### [facility] [address] [place] [address] Dr. Dwight Waters EO # 0.2 103/ul Normal 0.0-0.7 [facility] Comment on above: Performed By: #### U RTPCR #### [facility] [address] [place] [address] Dr. Dwight Waters Eosinophils/100 WBC (Bld) 2.3 % Normal 0.9-7.0 [facility] Comment on above: Performed By: #### U RTPCR #### [facility] [address] [place] [address] Dr. Dwight Waters Erythrocyte distribution width (RBC) [Ratio] 12.9 % Normal 11.0-15.0 [facility] Comment on above: Performed By: #### U RTPCR #### [facility] [address] [place] [address] Dr. Dwight Waters Hematocrit (Bld) [Volume fraction] 41.2 % Critically low 42.0-54.0 [facility] Comment on above: Performed By: #### U RTPCR #### [facility] [address] [place] [address] Dr. Dwight Waters Hemoglobin (Bld) [Mass/Vol] 13.3 g/dL Critically low 14.0-18.0 [facility] Comment on above: Performed By: #### U RTPCR #### [facility] [address] [place] [address] Dr. Dwight Waters IG # 0.04 10e3/ul Critically high 0.00-0.03 [facility] Comment on above: Performed By: #### U RTPCR #### [facility] [address] [place] [address] Dr. Dwight Waters IG % 0.5 % Normal 0.0-0.5 [facility] Comment on above: Performed By: #### U RTPCR #### [facility] [address] [place] [address] Dr. Dwight Waters LYMPH # 2.0 103/ul Normal 1.2-3.8 [facility] Comment on above: Performed By: #### U RTPCR #### [facility] [address] [place] [address] Dr. Dwight Waters Lymphocytes/100 WBC (Bld) 22.9 % Normal 20.5-60.0 [facility] Comment on above: Performed By: #### U RTPCR #### [facility] [address] [place] [address] Dr. Dwight Waters MANUAL DIFF REQ NO Normal [facility] Comment on above: Performed By: #### U RTPCR #### [facility] [address] [place] [address] Dr. Dwight Waters MCH (RBC) [Entitic mass] 28.7 pg Normal 25.9-34.0 [facility] Comment on above: Performed By: #### U RTPCR #### [facility] [address] [place] [address] Dr. Dwight Waters MCHC (RBC) [Mass/Vol] 32.3 g/dL Normal 29.9-35.2 [facility] Comment on above: Performed By: #### U RTPCR #### [facility] [address] [place] [address] Dr. Dwight Waters MCV (RBC) [Entitic vol] 88.8 fL Normal 80.0-94.0 [facility] Comment on above: Performed By: #### U RTPCR #### [facility] [address] [place] [address] Dr. Dwight Waters MONO # 0.8 103/ul Normal 0.3-0.8 [facility] Comment on above: Performed By: #### U RTPCR #### [facility] [address] [place] [address] Dr. Dwight Waters Monocytes/100 WBC (Bld) 9.7 % Normal 1.7-12.0 [facility] Comment on above: Performed By: #### U RTPCR #### [facility] [address] [place] [address] Dr. Dwight Waters NEUT # 5.6 103/ul Normal 1.4-6.5 [facility] Comment on above: Performed By: #### U RTPCR #### [facility] [address] [place] [address] Dr. Dwight Waters Neutrophils/100 WBC (Bld) 64.1 % Normal 43.0-75.0 [facility] Comment on above: Performed By: #### U RTPCR #### [facility] [address] [place] [address] Dr. Dwight Waters Platelet mean volume (Bld) [Entitic vol] 10.0 fL Normal 9.5-13.5 [facility] Comment on above: Performed By: #### U RTPCR #### [facility] [address] [place] [address] Dr. Dwight Waters PLT 270 103/ul Normal 150-450 [facility] Comment on above: Performed By: #### U RTPCR #### [facility] [address] [place] [address] Dr. Dwight Waters RBC 4.64 106/ul Critically low 4.70-6.10 [facility] Comment on above: Performed By: #### U RTPCR #### [facility] [address] [place] [address] Dr. Dwight Waters WBC 8.7 103/ul Normal 4.0-11.0 [facility] Comment on above: Performed By: #### U RTPCR #### [facility] [address] [place] [address] Dr. Dwight Waters CULTURE URINEon 06-18-2022 CULTURE URINE Culture Observations : NO GROWTH. Normal [facility] Comment on above: Performed By: #### U RTPCR #### [facility] [address] [place] [address] Dr. Dwight Waters Covid-19 PCR (CVDTB)on 05-31 SARS-CoV-2 (COVID-19) RNA ESTELITA+probe Ql (Unsp spec) Not detected Normal NOT DETECTED [facility] Comment on above: Result Comment: When [...] for this test is supported by the [place] [employer] and [employer]'s declaration that [...] used). Performed By: #### C BC #### [facility] [address] [place] [address] Dr. Dwight Waters ER URINE PROFILEon Bilirubin Ql (U) Negative Normal NEGATIVE [facility] Comment on above: Performed By: #### U RTPCR #### [facility] [address] [place] [address] Dr. Dwight Waters Clarity (U) CLEAR Normal CLEAR [facility] Comment on above: Performed By: #### U RTPCR #### [facility] [address] [place] [address] Dr. Dwight Waters Color (U) YELLOW Normal YELLOW [facility] Comment on above: Performed By: #### U RTPCR #### [facility] [address] [place] [address] Dr. Dwight NGUYENAHJenna A micrscopic examination will be performed if indicated. Normal [facility] Comment on above: Performed By: #### U RTPCR #### [facility] [address] [place] [address] Dr. Dwight Waters Glucose Ql (U) Negative Normal NEGATIVE [facility] Comment on above: Performed By: #### U RTPCR #### [facility] [address] [place] [address] Dr. Dwight Waters Hemoglobin Ql (U) LARGE Abnormal NEGATIVE [facility] Comment on above: Performed By: #### U RTPCR #### [facility] [address] [place] [address] Dr. Dwight Waters Ketones Ql (U) Negative Normal NEGATIVE [facility] Comment on above: Performed By: #### U RTPCR #### [facility] [address] [place] [address] Dr. Dwight Waters LEUKOCYTES TRACE Abnormal NEGATIVE [facility] Comment on above: Performed By: #### U RTPCR #### [facility] [address] [place] [address] Dr. Dwight Waters Nitrite Ql (U) Negative Normal NEGATIVE [facility] Comment on above: Performed By: #### U RTPCR #### [facility] [address] [place] [address] Dr. Dwight Waters pH (U) 6.0 [pH] Normal 5-9 [facility] Comment on above: Performed By: #### U RTPCR #### [facility] [address] [place] [address] Dr. Dwight Waters Protein (U) [Mass/Vol] 30 mg/dL Abnormal NEGAT MAYUR/ TRACE [facility] Comment on above: Performed By: #### U RTPCR #### [facility] [address] [place] [address] Dr. Dwight Waters SPEC GRAVITY >=1.030 Abnormal 1.005-<=1.[address] [facility] Comment on above: Performed By: #### U RTPCR #### [facility] [address] [place] [address] Dr. Dwight Waters UR MICRO IND INDICATED Normal [facility] Comment on above: Performed By: #### U RTPCR #### [facility] [address] [place] [address] Dr. Dwight Waters Urobilinogen Qn (U) 0.2 {Alyssa'U}/dL Normal 0.2 - 1. 0 [facility] Comment on above: Performed By: #### U RTPCR #### [facility] [address] [place] [address] Dr. Dwight Waters PROF 14(COMP METB)on 022 Albumin [Mass/Vol] 3.7 g/dL Normal 3.4-5.0 [facility] Comment on above: Performed By: #### C MP #### [facility] [address] [place] [address] Dr. Dwight Waters Albumin/Globulin [Mass ratio] 0.9 {ratio} Normal [facility] Comment on above: Performed By: #### C MP #### [facility] [address] [place] [address] Dr. Dwight Waters ALP [Catalytic activity/Vol] 80 U/L Normal 46-116 [facility] Comment on above: Performed By: #### C MP #### [facility] [address] [place] [address] Dr. Dwight Waters ALT [Catalytic activity/Vol] 24 U/L Normal 16-63 [facility] Comment on above: Performed By: #### C MP #### [facility] [address] [place] [address] Dr. Dwight Waters Anion gap [Moles/Vol] 12.9 mmol/L Normal [facility] Comment on above: Performed By: #### C MP #### [facility] [address] [place] [address] Dr. Dwight Waters AST [Catalytic activity/Vol] 17 U/L Normal 15-37 [facility] Comment on above: Performed By: #### C MP #### [facility] [address] [place] [address] Dr. Dwight Waters Bilirubin [Mass/Vol] 0.8 mg/dL Normal 0.2-1.0 [facility] Comment on above: Performed By: #### C MP #### [facility] [address] [address] [address] Dwight Waters Calcium [Mass/Vol] 9.4 mg/dL Normal 8.5-10.1 [facility] Comment on above: Performed By: #### C MP #### [facility] [address] [address] [address] Dwight Waters Chloride [Moles/Vol] 106 mmol/L Normal 98-107 [facility] Comment on above: Performed By: #### C MP #### [facility] [address] [address] [address] Dwight Waters CO2 [Moles/Vol] 25.3 mmol/L Normal 21.0-32.0 [facility] Comment on above: Performed By: #### C MP #### [facility] [address] [place] [address] Dr. Dwight Waters Creatinine [Mass/Vol] 1.29 mg/dL Normal 0.70-1.30 [facility] Comment on above: Performed By: #### C MP #### [facility] [address] [place] [address] Dr. Dwight Waters EGFR-AF CHADIAN >60 Normal >=60 [facility] Comment on above: Performed By: #### C MP #### [facility] [address] [address] [address] Dwight Waters EGFR-NON AF CHADIAN 59 mL/min/1.73m2 Critically low >=60 [facility] Comment on above: Performed By: #### C MP #### [facility] [address] [address] [address] Dwight Waters Globulin (S) [Mass/Vol] 4.2 g/dL Normal [facility] Comment on above: Performed By: #### C MP #### [facility] [address] [place] [address] Dr. Dwight Waters Glucose [Mass/Vol] 106 mg/dL Normal 74-106 [facility] Comment on above: Performed By: #### C MP #### [facility] [address] [place] [address] Dr. Dwight Waters Potassium [Moles/Vol] 4.2 mmol/L Normal 3.5-5.1 [facility] Comment on above: Performed By: #### C MP #### [facility] [address] [place] [address] Dr. Dwight Waters Protein [Mass/Vol] 7.9 g/dL Normal 6.4-8.2 [facility] Comment on above: Performed By: #### C MP #### [facility] [address] [place] [address] Dr. Dwight Waters Sodium [Moles/Vol] 140 mmol/L Normal 136-145 [facility] Comment on above: Performed By: #### C MP #### [facility] [address] [place] [address] Dr. Dwight Waters Urea nitrogen [Mass/Vol] 22.0 mg/dL Critically high 7.0-18.0 [facility] Comment on above: Performed By: #### C MP #### [facility] [address] [place] [address] Dr. Dwight Waters Urea nitrogen/Creatinine [Mass ratio] 17.1 mg/mg Normal [facility] Comment on above: Performed By: #### C MP #### [facility] [address] [place] [address] Dr. Dwight Waters URINE MICROSCOPIC ONLYon BACTERIA TRACE Abnormal NONE SEEN [facility] Comment on above: Performed By: #### U RTPCR #### [facility] [address] [place] [address] Dr. Dwight Waters Bacteria identified Cx Nom (U) INDICATED Normal [facility] Comment on above: Performed By: #### U RTPCR #### [facility] [address] [place] [address] Dr. Dwight Waters CAST NONE SEEN Normal NONE SEEN [facility] Comment on above: Performed By: #### U RTPCR #### [facility] [address] [place] [address] Dr. Dwight Waters Crystals LM Nom (Urine sed) NONE SEEN Normal NONE SEEN [facility] Comment on above: Performed By: #### U RTPCR #### [facility] [address] [place] [address] Dr. Dwight Waters Epithelial cells LM Ql (Urine sed) NONE SEEN Normal NONE SEEN /RARE [facility] Comment on above: Performed By: #### U RTPCR #### [facility] [address] [place] [address] Dr. Dwight Waters MUCOUS NONE SEEN Normal NONE SEEN [facility] Comment on above: Performed By: #### U RTPCR #### [facility] [address] [place] [address] Dr. Dwight Waters RBC 5-10 Abnormal 0-2 [facility] Comment on above: Performed By: #### U RTPCR #### [facility] [address] [place] [address] Dr. Dwight Waters WBC 10-20 Abnormal NONE SEEN [facility] Comment on above: Performed By: #### U RTPCR #### [facility] [address] [place] [address] Dr. Dwight Waters ALLOSCREEN RECIPIENT (POST T X PRA)on 06-13-2022 AB SPECIFICITY CLASS COMMENT Antibody Specificity testing performed by [employer]. cPRA calculation based on identification of HLA antibody specificities at MFI >2000 and/or presence of CREG antibodies. [facility] Comment on above: Some of the reagents used for testing in the Clinical Histocompatibility Laboratory have yet to be approved by the FDA. Our certification by CLIA to perform high complexity tests allows us to use these reagents in the context of a stringent QC program, and obviates the need for FDA approval.Testing performed by the [facility] Clinical Histocompatibility Laboratory. [facility] number: [id number]. CLIA number: [id number], Director: Carlito Merchant, PhD, D([facility]). ANTIBODY SPECIFICITY INTERPRETATION Detected [facility] CLASS I SPECIFICITIES Not detected [facility] CLASS II SPECIFICITIES Not detected [facility] HLA Ab (S) 0 % 0 [facility] EXTRA MICROon 06-13-2022 [facility] URINE CULTUREOrdered By: Jah Upton on 06-13-2022 Bacteria identified Cx Nom (Unsp spec) Growth [facility] Bacteria identified Cx Nom (Unsp spec) 10,000-50,000 CFU/mL Mixed skin shimon [facility] Comment on above: Multiple bacterial m orphotypes present. Suggest appropriate recollection if clinically indicated. [facility] CBC,PLATELETSon 06-12-2022 Erythrocyte distribution width (RBC) [Ratio] 13.0 % 10.9 - 14.3 % [facility] Hematocrit (Bld) [Volume fraction] 43.2 % 39.6 - 48.8 % [facility] Hemoglobin (Bld) [Mass/Vol] 13.9 g/dL 13.4 - 16.8 g/dL [facility] Interpretation and review of laboratory results Normal [facility] MCH (RBC) [Entitic mass] 28.7 pg 26.1 - 33.3 pg [facility] MCHC (RBC) [Mass/Vol] 32.2 g/dL 31.9 - 36.5 g/dL [facility] MCV (RBC) [Entitic vol] 89.1 fL 79.0 - 94.5 fL [facility] Platelet mean volume (Bld) [Entitic vol] 10.5 fL 8.7 - 12.3 fL [facility] Platelets (Bld) [#/Vol] 269 10*3/uL 146 - 337 K/uL [facility] RBC (Bld) [#/Vol] 4.85 10*6/uL [facility] WBC (Bld) [#/Vol] 7.68 10*3/uL 3.73 - 10. 10 K/uL [facility] CHEM 7 (LYTES,BUN,CREA,GLUC) on 06-12-2022 Anion gap [Moles/Vol] 14 mmol/L 7 - 17 mmol/L [facility] Chloride [Moles/Vol] 106 mmol/L 98 - 10 8 mmol/L [facility] CO2 [Moles/Vol] 25 mmol/L 21 - 31 mmol/L [facility] Creatinine [Mass/Vol] 1.26 mg/dL 0.70 - 1.30 mg/dL [facility] GFR/1.73 sq M.predicted CKD-EPI (S/P/Bld) [Vol rate/Area] 69 >=60 mL/min/1.73m2 [facility] Comment on above: Reported eGFR is bas ed on the CKD-EPI 2020 equation using creatinine, age, and sex. Glucose [Mass/Vol] 83 mg/dL 70 - 99 mg/dL [facility] Osmolality Calc [Osmolality] 295 [facility] Potassium [Moles/Vol] 3.8 mmol/L 3.5 - 5.0 mmol/L [facility] Sodium [Moles/Vol] 141 mmol/L 135 - 145 mmol/L [facility] Urea nitrogen [Mass/Vol] 18 mg/dL 7 - 25 mg/dL [facility] Urea nitrogen/Creatinine [Mass ratio] 14 mg/mg [facility] GGTon 06-12-2022 Gamma glutamyl transferase [Catalytic activity/Vol] 20 U/L 8 - 64 U/L [facility] HEMOGLOBIN [id number] By: Link Roche on 06-12-2022 Average glucose Estimated from glycated hemoglobin (Bld) [Mass/Vol] 126 mg/dL [facility] HbA1c (Bld) [Mass fraction] 6.0 % High 4.7 - 5.6 % [facility] Interpretation and review of laboratory results Abnormal [facility] HEPATIC FUNCTION PANELon Albumin [Mass/Vol] 4.3 g/dL 3.5 - 5.0 g/dL [facility] ALP [Catalytic activity/Vol] 78 U/L 32 - 126 U/L [facility] ALT [Catalytic activity/Vol] 12 U/L 10 - 52 U/L [facility] AST [Catalytic activity/Vol] 16 U/L 10 - 39 U/L [facility] Bilirubin [Mass/Vol] 1.0 mg/dL <1.5 [facility] Bilirubin.direct [Mass/Vol] 0.2 mg/dL <0.3 [facility] Protein [Mass/Vol] 7.5 g/dL 6.4 - 8.3 g/dL [facility] No Panel Informationon 06-12 Interpretation and review of laboratory results Normal [facility] PTH INTACTOrdered By: Marli Lizarraga on 06-12-2022 Interpretation and review of laboratory results Abnormal [facility] Parathyrin.intact [Mass/Vol] 79.7 pg/mL High 14.0 - 72.0 pg/mL [facility] URINALYSIS REFLEX TO CULTURE PERFORMABLEon 06-12-2022 Appearance (U) Clear Clear [facility] Bacteria LM Ql (Urine sed) ABSENT ABSENT [facility] Color (U) Yellow Yellow [facility] Epithelial cells.squamous LM Ql (Urine sed) 1/hpf = 1+ 1/hpf = 1+, 2-5/hpf = 2+, 0/hpf = 0+, ABSENT [facility] Glucose Test strip (U) [Mass/Vol] Negative Negative [facility] Interpretation and review of laboratory results Abnormal [facility] Ketones (U) [Mass/Vol] Trace Abnormal Negative [facility] Leukocyte esterase Test strip Ql (U) Small Abnormal Negative [facility] Nitrite Ql (U) Negative Negative [facility] pH (U) 5.5 [pH] 5.0 - 7.0 [facility] Protein (U) [Mass/Vol] 30 mg/dL Abnormal Negative [facility] RBC (U) [#/Vol] Trace Abnormal Negative [facility] RBC LM.HPF (Urine sed) [#/Area] 0-2 0 - 2 /HPF [facility] Specific gravity (U) [Rel density] 1.026 [facility] Urobilinogen (U) [Mass/Vol] 0.2 E.U./dL 0.2 E.U/dL, 1.0 E.U/dL [facility] WBC LM.HPF (Urine sed) [#/Area] 10-20 Abnormal 0 - 5 /HPF [facility] URINE PROTEIN/CREA RATIO, RA NDOMon 06-12-2022 Creatinine (24H U) [Mass/Vol] 231.68 mg/dL [facility] Protein Unsp time (U) [Mass/Vol] 49 mg/dL [facility] Protein/Creatinine (U) [Mass ratio] 0.211 mg/g [facility] FK506 (TACROLIMUS) WHOLE BLO ODon 06-09-2022 Tacrolimus (FK506), Blood 9.8 ng/mL Normal 2.0-20.0 [facility] Comment on above: Result Comment: Trou gh (immediately following transplant) 15.0 . Trough (steady state, 2 weeks or more after transplant): 3.0 - 8.0 . Performed by LC-MS/MS technology. Performed By: #### U RTPCR #### [facility] [address] [address] [address] Dwight Waters ALBUMINon 06-06-2022 Albumin [Mass/Vol] 3.8 g/dL Normal 3.4-5.0 [facility] Comment on above: Performed By: #### C MP #### [facility] [address] [address] [address] Dwight Waters ALKALINE PHOSPHAon ALP [Catalytic activity/Vol] 82 U/L Normal 46-116 [facility] Comment on above: Performed By: #### C MP #### [facility] [address] [address] [address] Dwight Waters BILIRUBIN CONJUGATED (DIRECT )on 06-06-2022 BILI, CONJUGATED 0.2 mg/dL Normal 0.0-0.2 [facility] Comment on above: Performed By: #### C BC #### [facility] [address] [address] [address] Dwight Waters BILIRUBIN TOTALon 06-06-2022 Bilirubin [Mass/Vol] 1.0 mg/dL Normal 0.2-1.0 [facility] Comment on above: Performed By: #### C BC #### [facility] [address] [place] [address] Dr. Dwight Waters BUNon 06-06-2022 Urea nitrogen [Mass/Vol] 18.0 mg/dL Normal 7.0-18.0 [facility] Comment on above: Performed By: #### C BC #### [facility] [address] [place] [address] Dr. Dwight Waters CALCIUMon 06-06-2022 Calcium [Mass/Vol] 9.4 mg/dL Normal 8.5-10.1 [facility] Comment on above: Performed By: #### C MP #### [facility] [address] [place] [address] Dr. Dwight Waters CBC AUTO DIFFon 06-06-2022 BASO # 0.1 103/ul Normal 0.0-0.1 [facility] Comment on above: Performed By: #### U RTPCR #### [facility] [address] [place] [address] Dr. Dwight Waters Basophils/100 WBC (Bld) 0.8 % Normal 0.2-2.0 [facility] Comment on above: Performed By: #### U RTPCR #### [facility] [address] [place] [address] Dr. Dwight Waters EO # 0.3 103/ul Normal 0.0-0.7 [facility] Comment on above: Performed By: #### U RTPCR #### [facility] [address] [place] [address] Dr. Dwight Waters Eosinophils/100 WBC (Bld) 3.3 % Normal 0.9-7.0 [facility] Comment on above: Performed By: #### U RTPCR #### [facility] [address] [place] [address] Dr. Dwight Waters Erythrocyte distribution width (RBC) [Ratio] 12.4 % Normal 11.0-15.0 [facility] Comment on above: Performed By: #### U RTPCR #### [facility] [address] [place] [address] Dr. Dwight Waters Hematocrit (Bld) [Volume fraction] 45.1 % Normal 42.0-54.0 [facility] Comment on above: Performed By: #### U RTPCR #### [facility] [address] [place] [address] Dr. Dwight Waters Hemoglobin (Bld) [Mass/Vol] 14.4 g/dL Normal 14.0-18.0 [facility] Comment on above: Performed By: #### U RTPCR #### [facility] [address] [place] [address] Dr. Dwight Waters IG # 0.01 10e3/ul Normal 0.00-0.03 [facility] Comment on above: Performed By: #### U RTPCR #### [facility] [address] [place] [address] Dr. Dwight Waters IG % 0.1 % Normal 0.0-0.5 [facility] Comment on above: Performed By: #### U RTPCR #### [facility] [address] [place] [address] Dr. Dwight Waters LYMPH # 2.2 103/ul Normal 1.2-3.8 [facility] Comment on above: Performed By: #### U RTPCR #### [facility] [address] [place] [address] Dr. Dwight Waters Lymphocytes/100 WBC (Bld) 30.0 % Normal 20.5-60.0 [facility] Comment on above: Performed By: #### U RTPCR #### [facility] [address] [place] [address] Dr. Dwight Waters MANUAL DIFF REQ NO Normal [facility] Comment on above: Performed By: #### U RTPCR #### [facility] [address] [place] [address] Dr. Dwight Waters MCH (RBC) [Entitic mass] 28.2 pg Normal 25.9-34.0 [facility] Comment on above: Performed By: #### U RTPCR #### [facility] [address] [address] [address] Dwight Waters MCHC (RBC) [Mass/Vol] 31.9 g/dL Normal 29.9-35.2 [facility] Comment on above: Performed By: #### U RTPCR #### [facility] [address] [place] [address] Dr. Dwight Waters MCV (RBC) [Entitic vol] 88.3 fL Normal 80.0-94.0 [facility] Comment on above: Performed By: #### U RTPCR #### [facility] [address] [place] [address] Dr. Dwight Waters MONO # 0.6 103/ul Normal 0.3-0.8 [facility] Comment on above: Performed By: #### U RTPCR #### [facility] [address] [place] [address] Dr. Dwight Waters Monocytes/100 WBC (Bld) 8.2 % Normal 1.7-12.0 [facility] Comment on above: Performed By: #### U RTPCR #### [facility] [address] [place] [address] Dr. Dwight Waters NEUT # 4.3 103/ul Normal 1.4-6.5 [facility] Comment on above: Performed By: #### U RTPCR #### [facility] [address] [place] [address] Dr. Dwight Waters Neutrophils/100 WBC (Bld) 57.6 % Normal 43.0-75.0 [facility] Comment on above: Performed By: #### U RTPCR #### [facility] [address] [place] [address] Dr. Dwight Waters Platelet mean volume (Bld) [Entitic vol] 9.7 fL Normal 9.5-13.5 [facility] Comment on above: Performed By: #### U RTPCR #### [facility] [address] [place] [address] Dr. Dwight Waters PLT 297 103/ul Normal 150-450 [facility] Comment on above: Performed By: #### U RTPCR #### [facility] [address] [place] [address] Dr. Dwight Waters RBC 5.11 106/ul Normal 4.70-6.10 [facility] Comment on above: Performed By: #### U RTPCR #### [facility] [address] [place] [address] Dr. Dwight Waters WBC 7.5 103/ul Normal 4.0-11.0 [facility] Comment on above: Performed By: #### U RTPCR #### [facility] [address] [place] [address] Dr. Dwight Waters CHLORIDEon 06-06-2022 Chloride [Moles/Vol] 107 mmol/L Normal 98-107 [facility] Comment on above: Performed By: #### C BC #### [facility] [address] [place] [address] Dr. Dwight Waters CO2on 06-06-2022 CO2 [Moles/Vol] 27.4 mmol/L Normal 21.0-32.0 [facility] Comment on above: Performed By: #### C BC #### [facility] [address] [place] [address] Dr. Dwight Waters CREATININEon 06-06-2022 Creatinine [Mass/Vol] 1.20 mg/dL Normal 0.70-1.30 [facility] Comment on above: Performed By: #### C BC #### [facility] [address] [place] [address] Dr. Dwight Waters EGFR-AF CHADIAN >60 Normal >=60 [facility] Comment on above: Performed By: #### C BC #### [facility] [address] [place] [address] Dr. Dwight Waters EGFR-NON AF CHADIAN >60 Normal >=60 [facility] Comment on above: Performed By: #### C BC #### [facility] [address] [place] [address] Dr. Dwight Waters GGTon 06-06-2022 Gamma glutamyl transferase [Catalytic activity/Vol] 29 U/L Normal 15-85 [facility] Comment on above: Performed By: #### C BC #### [facility] [address] [place] [address] Dr. Dwight Waters GLUCOSE BLOODon 06-06-2022 Glucose [Mass/Vol] 112 mg/dL Critically high 74-106 [facility] Comment on above: Performed By: #### C BC #### [facility] [address] [place] [address] Dr. Dwight Waters MAGNESIUMon 06-06-2022 Magnesium [Mass/Vol] 1.3 mg/dL Critically low 1.8-2.4 [facility] Comment on above: Performed By: #### C MP #### [facility] [address] [place] [address] Dr. Dwight Waters NAon 06-06-2022 Sodium [Moles/Vol] 141 mmol/L Normal 136-145 [facility] Comment on above: Performed By: #### C MP #### [facility] [address] [place] [address] Dr. Dwight Waters PHOSPHORUSon 06-06-2022 Phosphate [Mass/Vol] 3.1 mg/dL Normal 2.6-4.7 [facility] Comment on above: Performed By: #### C MP #### [facility] [address] [place] [address] Dr. Dwight Waters POTASSIUMon 06-06-2022 Potassium [Moles/Vol] 4.3 mmol/L Normal 3.5-5.1 [facility] Comment on above: Performed By: #### C BC #### [facility] [address] [place] [address] Dr. Dwight Waters SGOTon 06-06-2022 AST [Catalytic activity/Vol] 16 U/L Normal 15-37 [facility] Comment on above: Performed By: #### C BC #### [facility] [address] [place] [address] Dr. Dwight Waters SGPTon 06-06-2022 ALT [Catalytic activity/Vol] 50 U/L Normal 16-63 [facility] Comment on above: Performed By: #### C BC #### [facility] [address], [place] [address] Dr. Dwight Waters Bacteria identified Cx Nom ( Bld)on 05-21-2022 Bacteria identified Cx Nom (Unsp spec) NO GROWTH DAY 5 OF 5 [facility] Results may be compromised due to volume of BACT\ALERT bottle exceeding 10mLs . The optimal blood volume is 8-10 mls per aerobic/anaerobic blood culture bottle. [facility] CALCIUMon 05-20-2022 Calcium [Mass/Vol] 9.1 mg/dL 8.6 - 10. 5 mg/dL [facility] CBC,PLATELETSon 05-20-2022 Erythrocyte distribution width (RBC) [Ratio] 12.5 % 10.9 - 14.3 % [facility] Hematocrit (Bld) [Volume fraction] 37.1 % Low 39.6 - 48.8 % [facility] Hemoglobin (Bld) [Mass/Vol] 12.3 g/dL Low 13.4 - 16.8 g/dL [facility] Interpretation and review of laboratory results Abnormal [facility] MCH (RBC) [Entitic mass] 28.9 pg 26.1 - 33.3 pg [facility] MCHC (RBC) [Mass/Vol] 33.2 g/dL 31.9 - 36.5 g/dL [facility] MCV (RBC) [Entitic vol] 87.3 fL 79.0 - 94.5 fL [facility] Platelet mean volume (Bld) [Entitic vol] 9.9 fL 8.7 - 12.3 fL [facility] Platelets (Bld) [#/Vol] 234 10*3/uL 146 - 337 K/uL [facility] RBC (Bld) [#/Vol] 4.25 10*6/uL Low [facility] WBC (Bld) [#/Vol] 6.31 10*3/uL 3.73 - 10. 10 K/uL [facility] CHEM 7 (LYTES,BUN,CREA,GLUC) on 05-20-2022 Anion gap [Moles/Vol] 15 mmol/L 7 - 17 mmol/L [facility] Chloride [Moles/Vol] 111 mmol/L High 98 - 10 8 [facility] CO2 [Moles/Vol] 22 mmol/L 21 - 31 mmol/L [facility] Creatinine [Mass/Vol] 1.10 mg/dL 0.70 - 1.30 mg/dL [facility] GFR/1.73 sq M.predicted CKD-EPI (S/P/Bld) [Vol rate/Area] 81 >=60 mL/min/1.73m2 [facility] Comment on above: Reported eGFR is bas ed on the CKD-EPI 2020 equation using creatinine, age, and sex. Glucose [Mass/Vol] 92 mg/dL 70 - 99 mg/dL [facility] Interpretation and review of laboratory results Abnormal [facility] Osmolality Calc [Osmolality] 302 [facility] Potassium [Moles/Vol] 4.4 mmol/L 3.5 - 5.0 mmol/L [facility] Sodium [Moles/Vol] 144 mmol/L 135 - 145 mmol/L [facility] Urea nitrogen [Mass/Vol] 18 mg/dL 7 - 25 mg/dL [facility] Urea nitrogen/Creatinine [Mass ratio] 16 mg/mg [facility] MAGNESIUMon 05-20-2022 Interpretation and review of laboratory results Abnormal [facility] Magnesium [Mass/Vol] 1.5 mg/dL Low 1.6 - 2 .6 mg/dL [facility] No Panel Informationon 05-20 Interpretation and review of laboratory results Normal [facility] PHOSPHATE, INORGANICon 05-20 Phosphate [Mass/Vol] 3.3 mg/dL 2.2 - 4 .6 mg/dL [facility] [facility] RF Unspecified body region V iews [...] projections of kidneys, ureters, and bladder. FINDINGS: Product Sales Engineer images: Product Sales Engineer radiographs of the abdomen reveal a [...] Contrast refluxes up the ureter to the [place] right kidney that is grossly normal appearing. [...] projections of kidneys, ureters, and bladder. FINDINGS: Product Sales Engineer images: Product Sales Engineer radiographs of the abdomen reveal a [...] Contrast refluxes up the ureter to the [place] right kidney that is grossly normal appearing. [...] I have reviewed and approved this report. [facility] Radiology Study observation (narrative) [facility] RF Unspecified body region V iews during surgeryOrdered By: Lizz Campos on 05-20-2022 [facility] Work Phone: CALCIUMon 05-19-2022 Calcium [Mass/Vol] 9.2 mg/dL 8.6 - 10. 5 mg/[facility] Calcium [Mass/Vol] 8.6 mg/dL 8.6 - 10. 5 mg/dL [facility] CBC,PLATELETSon 05-19-2022 Erythrocyte distribution width (RBC) [Ratio] 12.4 % 10.9 - 14.3 % [facility] Hematocrit (Bld) [Volume fraction] 38.0 % Low 39.6 - 48.8 % [facility] Hemoglobin (Bld) [Mass/Vol] 12.0 g/dL Low 13.4 - 16.8 g/dL [facility] Interpretation and review of laboratory results Abnormal [facility] MCH (RBC) [Entitic mass] 28.6 pg 26.1 - 33.3 pg [facility] MCHC (RBC) [Mass/Vol] 31.6 g/dL Low 31.9 - 36.5 g/dL [facility] MCV (RBC) [Entitic vol] 90.5 fL 79.0 - 94.5 fL [facility] Platelet mean volume (Bld) [Entitic vol] 9.7 fL 8.7 - 12.3 fL [facility] Platelets (Bld) [#/Vol] 199 10*3/uL 146 - 337 K/uL [facility] RBC (Bld) [#/Vol] 4.20 10*6/uL Low [facility] WBC (Bld) [#/Vol] 6.81 10*3/uL 3.73 - 10. 10 K/uL [facility] CHEM 7 (LYTES,BUN,CREA,GLUC) on 05-19-2022 Anion gap [Moles/Vol] 13 mmol/L 7 - 17 mmol/L [facility] Chloride [Moles/Vol] 105 mmol/L 98 - 10 8 mmol/L [facility] CO2 [Moles/Vol] 30 mmol/L 21 - 31 mmol/L [facility] Creatinine [Mass/Vol] 1.39 mg/dL High 0.70 - 1.30 mg/dL [facility] GFR/1.73 sq M.predicted CKD-EPI (S/P/Bld) [Vol rate/Area] 61 >=60 mL/min/1.73m2 [facility] Comment on above: Reported eGFR is bas ed on the CKD-EPI 2020 equation using creatinine, age, and sex. Glucose [Mass/Vol] 121 mg/dL High 70 - 99 mg/dL [facility] Interpretation and review of laboratory results Abnormal [facility] Osmolality Calc [Osmolality] 303 [facility] Potassium [Moles/Vol] 3.8 mmol/L 3.5 - 5.0 mmol/L [facility] Sodium [Moles/Vol] 144 mmol/L 135 - 145 mmol/L [facility] Urea nitrogen [Mass/Vol] 18 mg/dL 7 - 25 mg/dL [facility] Urea nitrogen/Creatinine [Mass ratio] 13 mg/mg [facility] Anion gap [Moles/Vol] 15 mmol/L 7 - 17 mmol/L [facility] Chloride [Moles/Vol] 106 mmol/L 98 - 10 8 mmol/L [facility] CO2 [Moles/Vol] 24 mmol/L 21 - 31 mmol/L [facility] Creatinine [Mass/Vol] 1.46 mg/dL High 0.70 - 1.30 mg/dL [facility] GFR/1.73 sq M.predicted CKD-EPI (S/P/Bld) [Vol rate/Area] 58 Low >=60 mL/min/1.73m2 [facility] Comment on above: Reported eGFR is bas ed on the CKD-EPI 2020 equation using creatinine, age, and sex. Glucose [Mass/Vol] 103 mg/dL High 70 - 99 mg/dL [facility] Interpretation and review of laboratory results Abnormal [facility] Osmolality Calc [Osmolality] 298 [facility] Potassium [Moles/Vol] 3.9 mmol/L 3.5 - 5.0 mmol/L [facility] Sodium [Moles/Vol] 141 mmol/L 135 - 145 mmol/L [facility] Urea nitrogen [Mass/Vol] 21 mg/dL 7 - 25 mg/dL [facility] Urea nitrogen/Creatinine [Mass ratio] 14 mg/mg [facility] MAGNESIUMon 05-19-2022 Magnesium [Mass/Vol] 2.0 mg/dL 1.6 - 2 .6 mg/dL [facility] Magnesium [Mass/Vol] 1.7 mg/dL 1.6 - 2 .6 mg/dL [facility] No Panel Informationon 05-19 Interpretation and review of laboratory results Normal [facility] Interpretation and review of laboratory results Normal [facility] PHOSPHATE, INORGANICon 05-19 Phosphate [Mass/Vol] 3.0 mg/dL 2.2 - 4 .6 mg/dL [facility] Phosphate [Mass/Vol] 2.7 mg/dL 2.2 - 4 .6 mg/dL [facility] CALCIUMon 05-18-2022 Calcium [Mass/Vol] 9.1 mg/dL 8.6 - 10. 5 mg/dL [facility] CBC,PLATELETSon 05-18-2022 Erythrocyte distribution width (RBC) [Ratio] 12.5 % 10.9 - 14.3 % [facility] Hematocrit (Bld) [Volume fraction] 37.3 % Low 39.6 - 48.8 % [facility] Hemoglobin (Bld) [Mass/Vol] 11.9 g/dL Low 13.4 - 16.8 g/dL [facility] Interpretation and review of laboratory results Abnormal [facility] MCH (RBC) [Entitic mass] 28.9 pg 26.1 - 33.3 pg [facility] MCHC (RBC) [Mass/Vol] 31.9 g/dL 31.9 - 36.5 g/dL [facility] MCV (RBC) [Entitic vol] 90.5 fL 79.0 - 94.5 fL [facility] Platelet mean volume (Bld) [Entitic vol] 10.1 fL 8.7 - 12.3 fL [facility] Platelets (Bld) [#/Vol] 189 10*3/uL 146 - 337 K/uL [facility] RBC (Bld) [#/Vol] 4.12 10*6/uL Low [facility] WBC (Bld) [#/Vol] 10.19 10*3/uL High 3.73 - 10 .10 K/uL [facility] CHEM 7 (LYTES,BUN,CREA,GLUC) on 05-18-2022 Anion gap [Moles/Vol] 13 mmol/L 7 - 17 mmol/L [facility] Chloride [Moles/Vol] 102 mmol/L 98 - 10 8 mmol/L [facility] CO2 [Moles/Vol] 26 mmol/L 21 - 31 mmol/L [facility] Creatinine [Mass/Vol] 1.91 mg/dL High 0.70 - 1.30 mg/dL [facility] GFR/1.73 sq M.predicted CKD-EPI (S/P/Bld) [Vol rate/Area] 42 Low >=60 mL/min/1.73m2 [facility] Comment on above: Reported eGFR is bas ed on the CKD-EPI 2020 equation using creatinine, age, and sex. Glucose [Mass/Vol] 158 mg/dL High 70 - 99 mg/dL [facility] Osmolality Calc [Osmolality] 297 [facility] Potassium [Moles/Vol] 4.0 mmol/L 3.5 - 5.0 mmol/L [facility] Sodium [Moles/Vol] 137 mmol/L 135 - 145 mmol/L [facility] Urea nitrogen [Mass/Vol] 30 mg/dL High 7 - 25 mg/dL [facility] Urea nitrogen/Creatinine [Mass ratio] 16 mg/mg [facility] CHEM 7 (LYTES,BUN,CREA,GLUC) Ordered By: Tamiko Thapa on 05-18-2022 Anion gap [Moles/Vol] 13 mmol/L 7 - 17 mmol/L [facility] Chloride [Moles/Vol] 104 mmol/L 98 - 10 8 mmol/L [facility] CO2 [Moles/Vol] 26 mmol/L 21 - 31 mmol/L [facility] Creatinine [Mass/Vol] 2.96 mg/dL High 0.70 - 1.30 mg/dL [facility] GFR/1.73 sq M.predicted CKD-EPI (S/P/Bld) [Vol rate/Area] 25 Low >=60 mL/min/1.73m2 [facility] Comment on above: Reported eGFR is bas ed on the CKD-EPI 2020 equation using creatinine, age, and sex. Glucose [Mass/Vol] 136 mg/dL High 70 - 99 mg/dL [facility] Interpretation and review of laboratory results Abnormal [facility] Osmolality Calc [Osmolality] 304 [facility] Potassium [Moles/Vol] 4.2 mmol/L 3.5 - 5.0 mmol/L [facility] Sodium [Moles/Vol] 139 mmol/L 135 - 145 mmol/L [facility] Urea nitrogen [Mass/Vol] 41 mg/dL High 7 - 25 mg/dL [facility] Urea nitrogen/Creatinine [Mass ratio] 14 mg/mg [facility] MAGNESIUMon 05-18-2022 Magnesium [Mass/Vol] 2.2 mg/dL 1.6 - 2 .6 mg/dL [facility] Interpretation and review of laboratory results Normal [facility] Magnesium [Mass/Vol] 1.7 mg/dL 1.6 - 2 .6 mg/dL [facility] No Panel Informationon 05-18 Interpretation and review of laboratory results Abnormal [facility] Interpretation and review of laboratory results Normal [facility] PHOSPHATE, INORGANICon 05-18 Phosphate [Mass/Vol] 2.0 mg/dL Low 2.2 - 4 .6 mg/dL [facility] Interpretation and review of laboratory results Normal [facility] Phosphate [Mass/Vol] 2.8 mg/dL 2.2 - 4 .6 mg/dL [facility] PT,INR,PTTon 05-18-2022 aPTT Coag (PPP) [Time] 31.0 s [facility] INR Coag (Bld) [Relative time] 1.1 {INR} [facility] Interpretation and review of laboratory results Abnormal [facility] PT Coag (PPP) [Time] 14.4 s High [facility] URINE CULTUREOrdered By: Sylvia Campos on 05-18-2022 Bacteria identified Cx Nom (Unsp spec) No Growth [facility] CBC,PLATELETSon 05-17-2022 Erythrocyte distribution width (RBC) [Ratio] 12.8 % 10.9 - 14.3 % [facility] Hematocrit (Bld) [Volume fraction] 42.8 % 39.6 - 48.8 % [facility] Hemoglobin (Bld) [Mass/Vol] 13.3 g/dL Low 13.4 - 16.8 g/dL [facility] Interpretation and review of laboratory results Abnormal [facility] MCH (RBC) [Entitic mass] 28.9 pg 26.1 - 33.3 pg [facility] MCHC (RBC) [Mass/Vol] 31.1 g/dL Low 31.9 - 36.5 g/dL [facility] MCV (RBC) [Entitic vol] 92.8 fL 79.0 - 94.5 fL [facility] Platelet mean volume (Bld) [Entitic vol] 10.3 fL 8.7 - 12.3 fL [facility] Platelets (Bld) [#/Vol] 188 10*3/uL 146 - 337 K/uL [facility] RBC (Bld) [#/Vol] 4.61 10*6/uL [facility] WBC (Bld) [#/Vol] 16.61 10*3/uL High 3.73 - 10 .10 K/uL [facility] CHEM 7 (LYTES,BUN,CREA,GLUC) Ordered By: Kaylah Mc on 05-17-2022 Anion gap [Moles/Vol] 15 mmol/L 7 - 17 mmol/L [facility] Chloride [Moles/Vol] 103 mmol/L 98 - 10 8 mmol/L [facility] CO2 [Moles/Vol] 23 mmol/L 21 - 31 mmol/L [facility] Creatinine [Mass/Vol] 5.95 mg/dL High 0.70 - 1.30 mg/dL [facility] GFR/1.73 sq M.predicted CKD-EPI (S/P/Bld) [Vol rate/Area] 11 Low >=60 mL/min/1.73m2 [facility] Comment on above: Reported eGFR is bas ed on the CKD-EPI 2020 equation using creatinine, age, and sex. Glucose [Mass/Vol] 165 mg/dL High 70 - 99 mg/dL [facility] Interpretation and review of laboratory results Abnormal [facility] Osmolality Calc [Osmolality] 305 [facility] Potassium [Moles/Vol] 4.6 mmol/L 3.5 - 5.0 mmol/L [facility] Sodium [Moles/Vol] 136 mmol/L 135 - 145 mmol/L [facility] Urea nitrogen [Mass/Vol] 52 mg/dL High 7 - 25 mg/dL [facility] Urea nitrogen/Creatinine [Mass ratio] 9 [facility] (LYTES,BUN,CREA,GLUC) Ordered By: Kehinde Gutierrez on 05-17-2022 Anion gap [Moles/Vol] 24 mmol/L High 7 - 17 mmol/L [facility] Chloride [Moles/Vol] 100 mmol/L 98 - 10 8 mmol/L [facility] CO2 [Moles/Vol] 16 mmol/L Low 21 - 31 mmol/L [facility] Creatinine [Mass/Vol] 8.08 mg/dL High 0.70 - 1.30 mg/dL [facility] GFR/1.73 sq M.predicted CKD-EPI (S/P/Bld) [Vol rate/Area] 7 Low >=60 mL/min/1.73m2 [facility] Comment on above: Reported eGFR is bas ed on the CKD-EPI 2020 equation using creatinine, age, and sex. Glucose [Mass/Vol] 164 mg/dL High 70 - 99 mg/dL [facility] Interpretation and review of laboratory results Abnormal [facility] Osmolality Calc [Osmolality] 305 [facility] Potassium [Moles/Vol] 5.0 mmol/L 3.5 - 5.0 mmol/L [facility] Sodium [Moles/Vol] 135 mmol/L 135 - 145 mmol/L [facility] Urea nitrogen [Mass/Vol] 56 mg/dL High 7 - 25 mg/dL [facility] Urea nitrogen/Creatinine [Mass ratio] 7 mg[facility] LAVENDER TOP TUBEon 05-17-20 [facility] MAGNESIUMon 05-17-2022 Interpretation and review of laboratory results Normal [facility] Magnesium [Mass/Vol] 1.8 mg/dL 1.6 - 2 .6 mg/dL [facility] Interpretation and review of laboratory results Normal [facility] Magnesium [Mass/Vol] 1.6 mg/dL 1.6 - 2 .6 mg/dL [facility] No Panel Informationon 05-17 [facility] PHOSPHATE, INORGANICon 05-17 Interpretation and review of laboratory results Abnormal [facility] Phosphate [Mass/Vol] 4.9 mg/dL High 2.2 - 4 .6 mg/dL [facility] PT,INR,PTTon 05-17-2022 aPTT Coag (PPP) [Time] 33.0 s [facility] INR Coag (Bld) [Relative time] 1.3 {INR} High [facility] Interpretation and review of laboratory results Abnormal [facility] PT Coag (PPP) [Time] 15.7 s High [facility] Portable XR Chest Viewson [...] IMPRESSION IMPRESSION: No acute findings. [facility] Radiology Study observation (narrative) [facility] Portable XR Chest ViewsOrder ed By: David Sanz on 05-17-2022 [facility] Work Phone: URINALYSISOrdered By: Michael patel Ma on 05-17-2022 Appearance (U) Cloudy Abnormal Clear [facility] Comment on above: Results may be inacc urate due to color interference. Clinical correlation recommended. Bacteria LM Ql (Urine sed) ABSENT ABSENT [facility] Color (U) Red Abnormal Yellow [facility] Comment on above: Results may be inacc urate due to color interference. Clinical correlation recommended. Epithelial cells.squamous LM Ql (Urine sed) ABSENT 1/hpf = 1+, 2-5/hpf = 2+, 0/hpf = 0+, ABSENT [facility] Glucose Test strip (U) [Mass/Vol] Negative Negative [facility] Comment on above: Results may be inacc urate due to color interference. Clinical correlation recommended. Interpretation and review of laboratory results Abnormal [facility] Ketones (U) [Mass/Vol] Trace Abnormal Negative [facility] Comment on above: Results may be inacc urate due to color interference. Clinical correlation recommended. Leukocyte esterase Test strip Ql (U) Large Abnormal Negative [facility] Comment on above: Results may be inacc urate due to color interference. Clinical correlation recommended. Nitrite Ql (U) Negative Negative [facility] Comment on above: Results may be inacc urate due to color interference. Clinical correlation recommended. pH (U) 5.0 [pH] 5.0 - 7.0 [facility] Comment on above: Results may be inacc urate due to color interference. Clinical correlation recommended. Protein (U) [Mass/Vol] mg/dL Abnormal Negative [facility] Comment on above: Results may be inacc urate due to color interference. Clinical correlation recommended. RBC (U) [#/Vol] Large Abnormal Negative [facility] Comment on above: Results may be inacc urate due to color interference. Clinical correlation recommended. RBC LM.HPF (Urine sed) [#/Area] /[HPF] Abnormal 0 - 2 /HPF [facility] Specific gravity (U) [Rel density] 1.016 [facility] Comment on above: Results may be inacc urate due to color interference. Clinical correlation recommended. Urobilinogen (U) [Mass/Vol] 0.2 E.U./dL 0.2 E.U/dL, 1.0 E.U/dL [facility] Comment on above: Results may be inacc urate due to color interference. Clinical correlation recommended. WBC LM.HPF (Urine sed) [#/Area] /[HPF] Abnormal 0 - 5 /HPF [facility] URINE CULTUREOrdered By: Tyler Tiwari on 05-17-2022 Bacteria identified Cx Nom (Unsp spec) No Growth [facility] CBC,PLATELETSon 05-16-2022 Erythrocyte distribution width (RBC) [Ratio] 12.9 % 10.9 - 14.3 % [facility] Hematocrit (Bld) [Volume fraction] 46.5 % 39.6 - 48.8 % [facility] Hemoglobin (Bld) [Mass/Vol] 14.7 g/dL 13.4 - 16.8 g/dL [facility] Interpretation and review of laboratory results Abnormal [facility] MCH (RBC) [Entitic mass] 28.3 pg 26.1 - 33.3 pg [facility] MCHC (RBC) [Mass/Vol] 31.6 g/dL Low 31.9 - 36.5 g/dL [facility] MCV (RBC) [Entitic vol] 89.6 fL 79.0 - 94.5 fL [facility] Platelet mean volume (Bld) [Entitic vol] 10.3 fL 8.7 - 12.3 fL [facility] Platelets (Bld) [#/Vol] 188 10*3/uL 146 - 337 K/uL [facility] RBC (Bld) [#/Vol] 5.19 [facility]*6[facility] [#/Vol] 12.55 10*3/uL High 3.73 - 10 .10 K/uL [facility] CHEM 7 (LYTES,BUN,CREA,GLUC) Ordered By: Alma Pena on 05-16-2022 Anion gap [Moles/Vol] 14 mmol/L 7 - 17 mmol/L [facility] Chloride [Moles/Vol] 103 mmol/L 98 - 10 8 mmol/L [facility] CO2 [Moles/Vol] 22 mmol/L 21 - 31 mmol/L [facility] Creatinine [Mass/Vol] 6.09 mg/dL High 0.70 - 1.30 mg/dL [facility] GFR/1.73 sq M.predicted CKD-EPI (S/P/Bld) [Vol rate/Area] 10 Low >=60 mL/min/1.73m2 [facility] Comment on above: Reported eGFR is bas ed on the CKD-EPI 2020 equation using creatinine, age, and sex. Glucose [Mass/Vol] 134 mg/dL High 70 - 99 mg/dL [facility] Interpretation and review of laboratory results Abnormal [facility] Osmolality Calc [Osmolality] 298 [facility] Potassium [Moles/Vol] 4.9 mmol/L 3.5 - 5.0 mmol/L [facility] Sodium [Moles/Vol] 134 mmol/L Low 135 - 145 mmol/L [facility] Comment on above: Results inconsistent with previous results Urea nitrogen [Mass/Vol] 49 mg/dL High 7 - 25 mg/dL [facility] Urea nitrogen/Creatinine [Mass ratio] 8 mg/mg [facility] CHEM 7 (LYTES,BUN,CREA,GLUC) on 05-16-2022 Anion gap [Moles/Vol] 17 mmol/L 7 - 17 mmol/L [facility] Chloride [Moles/Vol] 106 mmol/L 98 - 10 8 mmol/L [facility] CO2 [Moles/Vol] 22 mmol/L 21 - 31 mmol/L [facility] Creatinine [Mass/Vol] 5.23 mg/dL High 0.70 - 1.30 mg/dL [facility] GFR/1.73 sq M.predicted CKD-EPI (S/P/Bld) [Vol rate/Area] 13 Low >=60 mL/min/1.73m2 [facility] Comment on above: Reported eGFR is bas ed on the CKD-EPI 2020 equation using creatinine, age, and sex. Glucose [Mass/Vol] 116 mg/dL High 70 - 99 mg/dL [facility] Interpretation and review of laboratory results Abnormal [facility] Osmolality Calc [Osmolality] 305 [facility] Potassium [Moles/Vol] 4.6 mmol/L 3.5 - 5.0 mmol/L [facility] Sodium [Moles/Vol] 140 mmol/L 135 - 145 mmol/L [facility] Urea nitrogen [Mass/Vol] 42 mg/dL High 7 - 25 mg/dL [facility] Urea nitrogen/Creatinine [Mass ratio] 8 mg/mg [facility] EXTRA MICROon 05-16-2022 [facility] LT BLUE TOP TUBEon 2 [facility] LYTES (NA, K, CL) - URINE - RANDOMon 05-16-2022 Chloride (24H U) [Moles/Vol] 68 mmol/L [facility] Potassium (24H U) [Moles/Vol] 36.7 mmol/L [facility] Sodium (24H U) [Moles/Vol] 55 mmol/L [facility] The reference range has not been established for random urine specimens. The test result should be integrated into the clinical context for interpretation. [facility] MAGNESIUMon 05-16-2022 Interpretation and review of laboratory results Normal [facility] Magnesium [Mass/Vol] 1.7 mg/dL 1.6 - 2 .6 mg/dL [facility] NOVEL CORONAVIRUS PCROrdered By: Edson Candelario on 05-16-2022 SARS-CoV-2 (COVID-19) RNA ESTELITA+probe Ql (Unsp spec) Not detected NOT DETECTED [facility] Comment on above: [facility] Negative results do [...] for use by authorized laboratories. [facility] No Panel Informationon 05-16 [facility] OSMOLALITY, URINEon 05-16-20 Interpretation and review of laboratory results Normal [facility] Osmolality (U) [Osmolality] 320 mosm/kg [facility] The reference range has not been established for random urine specimens. The test result should be integrated into the clinical context for interpretation. [facility] PROCALCITONINon 05-16-2022 Interpretation and review of laboratory results Normal [facility] Procalcitonin [Mass/Vol] 0.18 ng/mL <0.50 [facility] Comment on above: Procalcitonin is an [...] and trend procalcitonin in various clinical settings. [email or web address] Two common cutoffs associated with bacterial infections are as follows. Respiratory tract infections: >0.25 ng/mL Sepsis/septic shock: >0.5 ng/mL Procalcitonin should not be used alone as a diagnostic tool, however. All procalcitonin results should be interpreted in association with the patients clinical condition and all laboratory findings. [facility] PT,INR,PTTon 05-16-2022 aPTT Coag (PPP) [Time] 30.3 s [facility] INR Coag (Bld) [Relative time] 1.1 {INR} [facility] Interpretation and review of laboratory results Normal [facility] PT Coag (PPP) [Time] 14.1 s [facility] SARS-CoV-2 (COVID-19) RNA NA A+probe Ql (Unsp spec)Ordered By: Edson Candelario on 05-16-2022 Interpretation and review of laboratory results Normal [facility] TACROLIMUS LEVEL, TROUGH (WI E DRUG LEVEL)Ordered By: Mariama Nick on 05-16-2022 Interpretation and review of laboratory results Normal [facility] Tacrolimus (Bld) [Mass/Vol] 4.1 ng/mL Bone Marrow Transplant: 4.0-12.0, Therapeutic: 5.0-15.0 [facility] Method performed is a chemiluminescent microparticle immunoasssay on the [employer] Spot Worker i2000. The range is based on experience at [facility] and users should be aware that target concentrations vary widely depending on concomitant therapy, time post-transplant, and desired degree of immunosuppression. [facility] URINE PROTEIN/CREA RATIO, RA Baljit 05-16-2022 Creatinine (24H U) [Mass/Vol] 59.82 mg/dL [facility] Protein Unsp time (U) [Mass/Vol] 111 mg/dL [facility] Protein/Creatinine (U) [Mass ratio] 1.856 mg/g [facility] US for transplanted kidney dina shiitedon 05-16-2022 [...] flow in the transplant kidney. [facility] Radiology Study observation (narrative) [facility] US for transplanted kidney l imitedOrdered By: Rosendo Matute on 05-16-2022 [facility] Work Phone: CBC AND ELECTRONIC DIFFon Basophils (Bld) [#/Vol] 10*3/uL 0.00 - 0.09 K/uL [facility] Basophils/100 WBC (Bld) 0.2 % [facility] Differential cell count method Nom (Bld) Electronic Differential [facility] Eosinophils (Bld) [#/Vol] 10*3/uL 0.00 - 0.48 K/uL [facility] Eosinophils/100 WBC (Bld) 0.0 % [facility] Erythrocyte distribution width (RBC) [Ratio] 12.8 % 10.9 - 14.3 % [facility] Hematocrit (Bld) [Volume fraction] 46.0 % 39.6 - 48.8 % [facility] Hemoglobin (Bld) [Mass/Vol] 14.6 g/dL 13.4 - 16.8 g/dL [facility] Immature granulocytes (Bld) [#/Vol] 0.07 10*3/uL <=0.08 [facility] Immature granulocytes/100 WBC (Bld) 0.4 % [facility] Interpretation and review of laboratory results Abnormal [facility] Lymphocytes (Bld) [#/Vol] 1.49 10*3/uL 0.83 - 3.57 K/uL [facility] Lymphocytes/100 WBC (Bld) 9.4 % [facility] MCH (RBC) [Entitic mass] 28.2 pg 26.1 - 33.3 pg [facility] MCHC (RBC) [Mass/Vol] 31.7 g/dL Low 31.9 - 36.5 g/dL [facility] MCV (RBC) [Entitic vol] 89.0 fL 79.0 - 94.5 fL [facility] Monocytes (Bld) [#/Vol] 1.45 10*3/uL High 0.24 - 0.93 K/uL [facility] Monocytes/100 WBC (Bld) 9.2 % [facility] Neutrophils (Bld) [#/Vol] 12.77 10*3/uL High 1.57 - 6.19 K/uL [facility] Nucleated RBC/100 WBC (Bld) [Ratio] 0.0 % <=0.2 /100 WBC [facility] Platelet mean volume (Bld) [Entitic vol] 9.9 fL 8.7 - 12.3 fL [facility] Platelets (Bld) [#/Vol] 250 10*3/uL 146 - 337 K/uL [facility] RBC (Bld) [#/Vol] 5.17 10*6/uL [facility] Segmented neutrophils/100 WBC (Bld) 80.8 % [facility] WBC (Bld) [#/Vol] 15.81 10*3/uL High 3.73 - 10 .10 K/uL [facility] CBC AUTO DIFFon 05-15-2022 BASO # 0.0 103/ul Normal 0.0-0.1 [facility] Comment on above: Performed By: #### C BC #### [facility] [address] [place] [address] Dr. Dwight Waters Basophils/100 WBC (Bld) 0.3 % Normal 0.2-2.0 [facility] Comment on above: Performed By: #### C BC #### [facility] [address] [place] [address] Dr. Dwight Waters EO # 0.1 103/ul Normal 0.0-0.7 [facility] Comment on above: Performed By: #### C BC #### [facility] [address] [address] [address] Dwight Waters Eosinophils/100 WBC (Bld) 0.8 % Critically low 0.9-7.0 [facility] Comment on above: Performed By: #### C BC #### [facility] [address] [place] [address] Dr. Dwight Waters Erythrocyte distribution width (RBC) [Ratio] 12.7 % Normal 11.0-15.0 [facility] Comment on above: Performed By: #### C BC #### [facility] [address] [place] [address] Dr. Dwight Waters Hematocrit (Bld) [Volume fraction] 43.5 % Normal 42.0-54.0 [facility] Comment on above: Performed By: #### C BC #### [facility] [address] [place] [address] Dr. Dwight Waters Hemoglobin (Bld) [Mass/Vol] 14.4 g/dL Normal 14.0-18.0 [facility] Comment on above: Performed By: #### C BC #### [facility] [address] [place] [address] Dr. Dwight Waters IG # 0.02 10e3/ul Normal 0.00-0.03 [facility] Comment on above: Performed By: #### C BC #### [facility] [address] [place] [address] Dr. Dwight Waters IG % 0.2 % Normal 0.0-0.5 [facility] Comment on above: Performed By: #### C BC #### [facility] [address] [place] [address] Dr. Dwight Waters LYMPH # 1.5 103/ul Normal 1.2-3.8 [facility] Comment on above: Performed By: #### C BC #### [facility] [address] [place] [address] Dr. Dwight Waters Lymphocytes/100 WBC (Bld) 12.5 % Critically low 20.5-60.0 [facility] Comment on above: Performed By: #### C BC #### [facility] [address] [place] [address] Dr. Dwight Waters MANUAL DIFF REQ NO Normal [facility] Comment on above: Performed By: #### C BC #### [facility] [address] [place] [address] Dr. Dwight Waters MCH (RBC) [Entitic mass] 28.6 pg Normal 25.9-34.0 [facility] Comment on above: Performed By: #### C BC #### [facility] [address] [address] [address] Dwight Waters MCHC (RBC) [Mass/Vol] 33.1 g/dL Normal 29.9-35.2 [facility] Comment on above: Performed By: #### C BC #### [facility] [address] [address] [address] Dwight Waters MCV (RBC) [Entitic vol] 86.3 fL Normal 80.0-94.0 [facility] Comment on above: Performed By: #### C BC #### [facility] [address] [address] [address] Dwight Waters MONO # 1.0 103/ul Critically high 0.3-0.[address] [facility] Comment on above: Performed By: #### C BC #### [facility] [address] [place] [address] Dr. Dwight Waters Monocytes/100 WBC (Bld) 8.2 % Normal 1.7-12.0 [facility] Comment on above: Performed By: #### C BC #### [facility] [address] [address] [address] Dwight Waters NEUT # 9.1 103/ul Critically high 1.4-6.[address] [facility] Comment on above: Performed By: #### C BC #### [facility] [address] [address] [address] Dwight Waters Neutrophils/100 WBC (Bld) 78.0 % Critically high 43.0-75.0 [facility] Comment on above: Performed By: #### C BC #### [facility] [address] [address] [address] Dwight Waters Platelet mean volume (Bld) [Entitic vol] 9.8 fL Normal 9.5-13.5 [facility] Comment on above: Performed By: #### C BC #### [facility] [address] [address] [address] Dwight Waters PLT 251 103/ul Normal 150-450 [facility] Comment on above: Performed By: #### C BC #### [facility] [address] [place], [place] [address] Dr. Dwight Waters RBC 5.04 106/ul Normal 4.70-6.10 [facility] Comment on above: Performed By: #### C BC #### [facility] [address] [place], [place] [address] Dr. Dwight Waters WBC 11.6 103/ul Critically high 4.0-11.0 [facility] Comment on above: Performed By: #### C BC #### [facility] [address] [id number] Dwight Waters CHEM 6 (LYTES, BUN CREA)on 0 05-15-2022 Anion gap [Moles/Vol] 12 mmol/L 7 - 17 mmol/L [facility] Chloride [Moles/Vol] 105 mmol/L 98 - 10 8 mmol/L [facility] CO2 [Moles/Vol] 26 mmol/L 21 - 31 mmol/L [facility] Creatinine [Mass/Vol] 2.85 mg/dL High 0.70 - 1.30 mg/dL [facility] GFR/1.73 sq M.predicted CKD-EPI (S/P/Bld) [Vol rate/Area] 26 Low >=60 mL/min/1.73m2 [facility] Comment on above: Reported eGFR is bas ed on the CKD-EPI 2020 equation using creatinine, age, and sex. Potassium [Moles/Vol] 4.6 mmol/L 3.5 - 5.0 mmol/L [facility] Sodium [Moles/Vol] 138 mmol/L 135 - 145 mmol/L [facility] Urea nitrogen [Mass/Vol] 32 mg/dL High 7 - 25 mg/dL [facility] Urea nitrogen/Creatinine [Mass ratio] 11 mg[facility]/PELVIS WO CONon 05-15 CT [...] transplanted kidney with moderate right-sided hydronephrosis. Atrophic [place] kidneys with moderate right-sided hydronephrosis. Multiple nonobstructive [...] transplanted kidney with moderate right-sided hydronephrosis. Atrophic [place] kidneys with moderate right-sided hydronephrosis. Multiple nonobstructive right renal calculi measuring up to 8 mm. FOLLOW-UP: Follow-up as clinically indicated. Electronically authenticated by: LYNDSAY JEAN Date: 2022-05-15 05:04 Normal [facility]30 SARS-CoV-2 (COVID-19) RNA ESTELITA+probe Ql (Unsp spec) Not detected Normal NOT DETECTED [facility] Comment on above: Result Comment: When [...] for this test is supported by the [place] [employer] and [employer] Service's declaration that [...] used). Performed By: #### U RTPCR #### [facility] [address] [address] [address] Dwight Waters GLUCOSEon 05-15-2022 Glucose [Mass/Vol] 141 mg/dL High 70 - 99 mg/dL [facility] GOLD TOP TUBEon 05-15-2022 [facility] HEPATIC FUNCTION PANELon Albumin [Mass/Vol] 4.3 g/dL 3.5 - 5.0 g/dL [facility] ALP [Catalytic activity/Vol] 85 U/L 32 - 126 U/L [facility] ALT [Catalytic activity/Vol] 13 U/L 10 - 52 U/L [facility] AST [Catalytic activity/Vol] 15 U/L 10 - 39 U/L [facility] Bilirubin [Mass/Vol] 0.8 mg/dL <1.5 [facility] Bilirubin.direct [Mass/Vol] 0.2 mg/dL <0.3 [facility] Interpretation and review of laboratory results Normal [facility] Protein [Mass/Vol] 7.3 g/dL 6.4 - 8.3 g/dL [facility] LIPASEon 05-15-2022 Lipase [Catalytic activity/Vol] 8 U/L Low 11 - 82 U/L [facility] No Panel Informationon 05-15 Interpretation and review of laboratory results Abnormal [facility] PROF 14(COMP METB)on 022 Albumin [Mass/Vol] 3.8 g/dL Normal 3.4-5.0 [facility] Comment on above: Performed By: #### U RTPCR #### [facility] [address] [address] [address] Dwight Waters Albumin/Globulin [Mass ratio] 1.1 {ratio} Normal [facility] Comment on above: Performed By: #### U RTPCR #### [facility] [address] [address] [address] Dwight Waters ALP [Catalytic activity/Vol] 92 U/L Normal 46-116 [facility] Comment on above: Performed By: #### U RTPCR #### [facility] [address] [address] [address] Dwight Waters ALT [Catalytic activity/Vol] 25 U/L Normal 16-63 [facility] Comment on above: Performed By: #### U RTPCR #### [facility] [address] [address] [address] Dwight Waters Anion gap [Moles/Vol] 14.6 mmol/L Normal [facility] Comment on above: Performed By: #### U RTPCR #### [facility] [address] [place] [address] Dr. Dwight Waters AST [Catalytic activity/Vol] 17 U/L Normal 15-37 [facility] Comment on above: Performed By: #### U RTPCR #### [facility] [address] [address] [address] Dwight Waters Bilirubin [Mass/Vol] 0.6 mg/dL Normal 0.2-1.0 [facility] Comment on above: Performed By: #### U RTPCR #### [facility] [address] [address] [address] Dwight Waters Calcium [Mass/Vol] 9.9 mg/dL Normal 8.5-10.1 [facility] Comment on above: Performed By: #### U RTPCR #### [facility] [address] [address] [address] Dwight Waters Chloride [Moles/Vol] 106 mmol/L Normal 98-107 [facility] Comment on above: Performed By: #### U RTPCR #### [facility] [address] [address] [address] Dwight Waters CO2 [Moles/Vol] 24.2 mmol/L Normal 21.0-32.0 [facility] Comment on above: Performed By: #### U RTPCR #### [facility] [address] [address] [address] Dwight Waters Creatinine [Mass/Vol] 1.58 mg/dL Critically high 0.70-1.30 [facility] Comment on above: Performed By: #### U RTPCR #### [facility] [address] [address] [address] Dwight Waters EGFR-AF CHADIAN 56 mL/min/1.73m2 Critically low >=60 [facility] Comment on above: Performed By: #### U RTPCR #### [facility] [address] [address] [address] Dwight Waters EGFR-NON AF CHADIAN 46 mL/min/1.73m2 Critically low >=60 [facility] Comment on above: Performed By: #### U RTPCR #### [facility] [address] [address] [address] Dwight Waters Globulin (S) [Mass/Vol] 3.5 g/dL Normal [facility] Comment on above: Performed By: #### U RTPCR #### [facility] [address] [address] [address] Dwight Waters Glucose [Mass/Vol] 162 mg/dL Critically high 74-106 T [facility] Comment on above: Performed By: #### U RTPCR #### [facility] [address] [address] [address] Dwight Waters Potassium [Moles/Vol] 3.8 mmol/L Normal 3.5-5.1 [facility] Comment on above: Performed By: #### U RTPCR #### [facility] [address] [address] [address] Dwight Waters Protein [Mass/Vol] 7.3 g/dL Normal 6.4-8.2 [facility] Comment on above: Performed By: #### U RTPCR #### [facility] [address] [address] [address] Dwight Waters Sodium [Moles/Vol] 141 mmol/L Normal 136-145 [facility] Comment on above: Performed By: #### U RTPCR #### [facility] [address] [address] [address] Dwight Waters Urea nitrogen [Mass/Vol] 22.0 mg/dL Critically high 7.0-18.0 [facility] Comment on above: Performed By: #### U RTPCR #### [facility] [address] [address] [address] Dwight Waters Urea nitrogen/Creatinine [Mass ratio] 13.9 mg/mg Normal [facility] Comment on above: Performed By: #### U RTPCR #### [facility] [address] [address] [address] Dwight Waters Portable XR Chest Viewson [...] IMPRESSION: No acute cardiopulmonary disease [facility] Radiology Study observation (narrative) [facility] Portable XR Chest ViewsOrder ed By: Vladislav Omer on 05-15-2022 [facility] URINE DIPSTICK; REFLEX MICRO SCOPY; REFLEX CULTURE PERFORMABLEon 05-15-2022 Appearance (U) Clear Clear [facility] Color (U) Yellow Yellow [facility] Glucose Test strip (U) [Mass/Vol] 100 mg/dL Abnormal Negative [facility] Interpretation and review of laboratory results Abnormal [facility] Ketones (U) [Mass/Vol] Negative Negative [facility] Leukocyte esterase Test strip Ql (U) Large Abnormal [facility] Nitrite Ql (U) Negative Negative [facility] pH (U) 6.0 [pH] 5.0 - 7.0 [facility] Protein (U) [Mass/Vol] 100 mg/dL Abnormal Negative [facility] RBC (U) [#/Vol] Large Abnormal Negative [facility] Specific gravity (U) [Rel density] 1.010 [facility] Urobilinogen (U) [Mass/Vol] 0.2 E.U./dL 0.2 E.U/dL, 1.0 E.U/dL [facility] URINE MICROSCOPIC WITH REFLE X TO CULTUREOrdered By: Rey Bro on 05-15-2022 Bacteria LM Ql (Urine sed) ABSENT ABSENT [facility] Epithelial cells.squamous LM Ql (Urine sed) ABSENT 1/hpf = 1+, 2-5/hpf = 2+, 0/hpf = 0+, ABSENT [facility] Interpretation and review of laboratory results Abnormal [facility] RBC LM.HPF (Urine sed) [#/Area] /[HPF] Abnormal 0 - 2 /HPF [facility] WBC LM.HPF (Urine sed) [#/Area] 10-20 Abnormal 0 - 5 /HPF [facility] CT ABD/PELVIS WO CONon 05-12 CT ABD/PELVIS WO CON Begin Addendum #[address] Lund 3:25 PM EST 05/11/2022. Begin Addendum #2 IMPRESSION below should also contain the followin. 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 The [place] kidneys are progressively atrophic bilaterally compared to [...] of 06/14/2020 are no longer present. The [place] distal right ureter is decompressed beyond this [...] with surgical history for renal graft and [place] right urinary drainage, as a discrete ureteroneocystostomy is not identified, and the graft may be draining via a ureteroureterostomy. Urology consultation recommended. 3. The [place] kidneys are bilaterally atrophic, with right renal sinus calcifications consistent with nonobstructing right [place] renal calculi up to 6 mm. Normal [facility] CBC AUTO DIFFon 05-11-2022 BASO # 0.1 103/ul Normal 0.0-0.1 [facility] Comment on above: Performed By: #### U RTPCR #### [facility] [address] [address] [address] Dwight Waters Basophils/100 WBC (Bld) 0.8 % Normal 0.2-2.0 [facility] Comment on above: Performed By: #### U RTPCR #### [facility] [address] [address] [address] Dwight Waters EO # 0.2 103/ul Normal 0.0-0.7 [facility] Comment on above: Performed By: #### U RTPCR #### [facility] [address] [place] [address] Dr. Dwight Waters Eosinophils/100 WBC (Bld) 2.5 % Normal 0.9-7.0 [facility] Comment on above: Performed By: #### U RTPCR #### [facility] [address] [place] [address] Dr. Dwight Waters Erythrocyte distribution width (RBC) [Ratio] 12.5 % Normal 11.0-15.0 [facility] Comment on above: Performed By: #### U RTPCR #### [facility] [address] [place] [address] Dr. Dwight Waters Hematocrit (Bld) [Volume fraction] 48.3 % Normal 42.0-54.0 [facility] Comment on above: Performed By: #### U RTPCR #### [facility] [address] [address] [address] Dwight Waters Hemoglobin (Bld) [Mass/Vol] 15.3 g/dL Normal 14.0-18.0 [facility] Comment on above: Performed By: #### U RTPCR #### [facility] [address] [address] [address] Dwight Waters IG # 0.01 10e3/ul Normal 0.00-0.03 [facility] Comment on above: Performed By: #### U RTPCR #### [facility] [address] [address] [address] Dwight Waters IG % 0.2 % Normal 0.0-0.5 [facility] Comment on above: Performed By: #### U RTPCR #### [facility] [address] [place] [address] Dr. Dwight Waters LYMPH # 1.9 103/ul Normal 1.2-3.8 [facility] Comment on above: Performed By: #### U RTPCR #### [facility] [address] [place] [address] Dr. Dwight Waters Lymphocytes/100 WBC (Bld) 29.8 % Normal 20.5-60.0 [facility] Comment on above: Performed By: #### U RTPCR #### [facility] [address] [place] [address] Dr. Dwight Waters MANUAL DIFF REQ NO Normal [facility] Comment on above: Performed By: #### U RTPCR #### [facility] [address] [address] [address] Dwight Waters MCH (RBC) [Entitic mass] 28.2 pg Normal 25.9-34.0 [facility] Comment on above: Performed By: #### U RTPCR #### [facility] [address] [address] [address] Dwight Waters MCHC (RBC) [Mass/Vol] 31.7 g/dL Normal 29.9-35.2 [facility] Comment on above: Performed By: #### U RTPCR #### [facility] [address] [address] [address] Dwight Waters MCV (RBC) [Entitic vol] 89.1 fL Normal 80.0-94.0 [facility] Comment on above: Performed By: #### U RTPCR #### [facility] [address] [address] [address] Dwight Waters MONO # 0.6 103/ul Normal 0.3-0.8 [facility] Comment on above: Performed By: #### U RTPCR #### [facility] [address] [place] [address] Dr. Dwight Waters Monocytes/100 WBC (Bld) 9.0 % Normal 1.7-12.0 [facility] Comment on above: Performed By: #### U RTPCR #### [facility] [address] [place] [address] Dr. Dwight Waters NEUT # 3.6 103/ul Normal 1.4-6.5 [facility] Comment on above: Performed By: #### U RTPCR #### [facility] [address] [place] [address] Dr. Dwight Waters Neutrophils/100 WBC (Bld) 57.7 % Normal 43.0-75.0 [facility] Comment on above: Performed By: #### U RTPCR #### [facility] [address] [place] [address] Dr. Dwight Waters Platelet mean volume (Bld) [Entitic vol] 9.9 fL Normal 9.5-13.5 [facility] Comment on above: Performed By: #### U RTPCR #### [facility] [address] [place] [address] Dr. Dwight Waters PLT 249 103/ul Normal 150-450 [facility] Comment on above: Performed By: #### U RTPCR #### [facility] [address] [place] [address] Dr. Dwight Waters RBC 5.42 106/ul Normal 4.70-6.10 [facility] Comment on above: Performed By: #### U RTPCR #### [facility] [address] [place] [address] Dr. Dwight Waters WBC 6.3 103/ul Normal 4.0-11.0 [facility] Comment on above: Performed By: #### U RTPCR #### [facility] [address] [place] [address] Dr. Dwight Waters ER URINE PROFILEon 2 Bilirubin Ql (U) Unable to perform testing due to color interference. Abnormal NEGATIVE [facility] Comment on above: Performed By: #### U RTPCR #### [facility] [address] [place] [address] Dr. Dwight Waters Clarity (U) TURBID Abnormal CLEAR [facility] Comment on above: Performed By: #### U RTPCR #### [facility] [address] [place] [address] Dr. Dwight Waters Color (U) RED Abnormal YELLOW [facility] Comment on above: Performed By: #### U RTPCR #### [facility] [address] [place] [address] Dr. Dwight Waters ERUAHD A micrscopic examination will be performed if indicated. Normal [facility] Comment on above: Performed By: #### U RTPCR #### [facility] [address] [place] [address] Dr. Dwight Waters Glucose Ql (U) Unable to perform testing due to color interference. Abnormal NEGATIVE [facility] Comment on above: Performed By: #### U RTPCR #### [facility] [address] [place] [address] Dr. Dwight Waters Hemoglobin Ql (U) Unable to perform testing due to color interference. Abnormal NEGATIVE [facility] Comment on above: Performed By: #### U RTPCR #### [facility] [address] [place] [address] Dr. Dwight Waters Ketones Ql (U) Unable to perform testing due to color interference. Abnormal NEGATIVE [facility] Comment on above: Performed By: #### U RTPCR #### [facility] [address] [place] [address] Dr. Dwight Waters LEUKOCYTES Unable to perform testing due to color interference. Abnormal NEGATIVE [facility] Comment on above: Performed By: #### U RTPCR #### [facility] [address] [place] [address] Dr. Dwight Waters Nitrite Ql (U) Unable to perform testing due to color interference. Abnormal NEGATIVE [facility] Comment on above: Performed By: #### U RTPCR #### [facility] [address] [place] [address] Dr. Dwight Waters pH (U) 6.5 [pH] Normal 5-9 [facility] Comment on above: Performed By: #### U RTPCR #### [facility] [address] [place] [address] Dr. Dwight Waters SPEC GRAVITY 1.020 Normal 1.005-<=1.[address] [facility] Comment on above: Performed By: #### U RTPCR #### [facility] [address] [place] [address] Dr. Dwight Waters UA PROTEIN Unable to perform testing due to color interference. Normal NEGATIVE/ TRACE [facility] Comment on above: Performed By: #### U RTPCR #### [facility] [address] [place] [address] Dr. Dwight Waters UR MICRO IND INDICATED Normal [facility] Comment on above: Performed By: #### U RTPCR #### [facility] [address] [place] [address] Dr. Dwight Waters UROBILINOGEN Unable to perform testing due to color interference. Normal 0.2 - 1.0 [facility] Comment on above: Performed By: #### U RTPCR #### [facility] [address] [place] [address] Dr. Dwight Waters PROF 14(COMP METB)on 022 Albumin [Mass/Vol] 3.8 g/dL Normal 3.4-5.0 [facility] Comment on above: Performed By: #### C MP #### [facility] [address] [place] [address] Dr. Dwight Waters Albumin/Globulin [Mass ratio] 1.1 {ratio} Normal [facility] Comment on above: Performed By: #### C MP #### [facility] [address] [place] [address] Dr. Dwight Waters ALP [Catalytic activity/Vol] 106 U/L Normal 46-116 [facility] Comment on above: Performed By: #### C MP #### [facility] [address] [address] [address] Dwight Waters ALT [Catalytic activity/Vol] 30 U/L Normal 16-63 [facility] Comment on above: Performed By: #### C MP #### [facility] [address] [place] [address] Dr. Dwight Waters Anion gap [Moles/Vol] 11.7 mmol/L Normal [facility] Comment on above: Performed By: #### C MP #### [facility] [address] [place] [address] Dr. Dwight Waters AST [Catalytic activity/Vol] 16 U/L Normal 15-37 [facility] Comment on above: Performed By: #### C MP #### [facility] [address] [place] [address] Dr. Dwight Waters Bilirubin [Mass/Vol] 0.6 mg/dL Normal 0.2-1.0 [facility] Comment on above: Performed By: #### C MP #### [facility] [address] [place] [address] Dr. Dwight Waters Calcium [Mass/Vol] 9.1 mg/dL Normal 8.5-10.1 [facility] Comment on above: Performed By: #### C MP #### [facility] [address] [place] [address] Dr. Dwight Waters CO2 [Moles/Vol] 27.4 mmol/L Normal 21.0-32.0 [facility] Comment on above: Performed By: #### C MP #### [facility] [address] [place] [address] Dr. Dwight Waters Creatinine [Mass/Vol] 1.18 mg/dL Normal 0.70-1.30 [facility] Comment on above: Performed By: #### C MP #### [facility] [address] [place] [address] Dr. Dwight Waters EGFR-AF CHADIAN >60 Normal >=60 [facility] Comment on above: Performed By: #### C MP #### [facility] [address] [address] [address] Dwight Waters EGFR-NON AF CHADIAN >60 Normal >=60 [facility] Comment on above: Performed By: #### C MP #### [facility] [address] [address] [address] Dwight Waters Globulin (S) [Mass/Vol] 3.6 g/dL Normal [facility] Comment on above: Performed By: #### C MP #### [facility] [address] [address] [address] Dwight Waters Glucose [Mass/Vol] 192 mg/dL Critically high 74-106 T [facility] Comment on above: Performed By: #### C MP #### [facility] [address] [address] [address] Dwight Waters Potassium [Moles/Vol] 4.1 mmol/L Normal 3.5-5.1 [facility] Comment on above: Performed By: #### C MP #### [facility] [address] [place] [address] Dr. Dwight Waters Protein [Mass/Vol] 7.4 g/dL Normal 6.4-8.2 [facility] Comment on above: Performed By: #### C MP #### [facility] [address] [address] [address] Dwight Waters Sodium [Moles/Vol] 142 mmol/L Normal 136-145 [facility] Comment on above: Performed By: #### C MP #### [facility] [address] [address] [address] Dwight Waters Urea nitrogen [Mass/Vol] 17.0 mg/dL Normal 7.0-18.0 [facility] Comment on above: Performed By: #### C MP #### [facility] [address] [address] [address] Dwight Waters Urea nitrogen/Creatinine [Mass ratio] 14.4 mg/mg Normal [facility] Comment on above: Performed By: #### C MP #### [facility] [address] [place] [address] Dr. Dwight Waters URINE MICROSCOPIC ONLYon BACTERIA NONE SEEN Normal NONE SEEN [facility] Comment on above: Performed By: #### U RTPCR #### [facility] [address] [place] [address] Dr. Dwight Waters Bacteria identified Cx Nom (U) NOT INDICATED Normal [facility] Comment on above: Performed By: #### U RTPCR #### [facility] [address] [place] [address] Dr. Dwight Waters CAST NONE SEEN Normal NONE SEEN [facility] Comment on above: Performed By: #### U RTPCR #### [facility] [address] [place] [address] Dr. Dwight Waters Crystals LM Nom (Urine sed) NONE SEEN Normal NONE SEEN [facility] Comment on above: Performed By: #### U RTPCR #### [facility] [address] [place] [address] Dr. Dwight Waters Epithelial cells LM Ql (Urine sed) RARE Normal NONE SEEN /RARE [facility] Comment on above: Performed By: #### U RTPCR #### [facility] [address] [place] [address] Dr. Dwight Waters MUCOUS NONE SEEN Normal NONE SEEN [facility] Comment on above: Performed By: #### U RTPCR #### [facility] [address] [place] [address] Dr. Dwight Waters RBC (U) [#/Vol] /uL Abnormal 0-2 [facility] Comment on above: Performed By: #### U RTPCR #### [facility] [address] [place] [address] Dr. Dwight Waters WBC NONE SEEN Normal NONE SEEN [facility] Comment on above: Performed By: #### U RTPCR #### [facility] [address] [place] [address] Dr. Dwight Waters K (Potassium)on 01-06-2020 Potassium [Moles/Vol] 4.4 mmol/L Normal 3.7-5.3 [facility] Comment on above: Performed By: #### K #### [facility] [address] [place] [id number] Cotton Buyer: Kehinde Woodward MD Potassiumon 01-06-2020 Potassium [Moles/Vol] 4.4 mmol/L 3.7 - 5.3 mmol/L [facility] Work Phone: Hemoglobin and Hematocrit, B loodon 10-24-2019 Hematocrit (Bld) [Volume fraction] 23.6 % Low 40.7 - 50.3 % [place], [place] Hemoglobin (Bld) [Mass/Vol] 7.3 g/dL Low 13 - 17 g/dL [place] Interpretation and review of laboratory results Abnormal [place] Hgb/Hcton 10-24-2019 Hematocrit (Bld) [Volume fraction] 23.6 % Low 40.7-50.3 [facility] Comment on above: Performed By: #### H H #### [facility] [address] [place] [address] Dr. [place] [facility] Cotton Buyer: Kehinde Woodward MD Hemoglobin (Bld) [Mass/Vol] 7.3 g/dL Low 13.0-17.0 [facility] Comment on above: Performed By: #### H H #### [facility] [address] [place] [facility] [employer] Buyer: Kehinde Woodward MD Hemoglobinon 08-27-2019 Hemoglobin (Bld) [Mass/Vol] 7.5 g/dL Low 13.0-17.0 [facility] Comment on above: Performed By: #### H GB #### [facility] [address] [place] [address] [employer] Buyer: Kehinde Woodward MD Hemoglobin (Bld) [Mass/Vol] 7.5 g/dL Low 13 - 17 g/dL [place], [place] Interpretation and review of laboratory results Abnormal [place] Hemoglobinon 08-08-2019 Hemoglobin (Bld) [Mass/Vol] 8.3 g/dL Low 13.0-17.0 [facility] Comment on above: Performed By: #### H GB #### [facility] [address] [place] [address] [employer] Buyer: Kehinde Woodward MD Hemoglobin (Bld) [Mass/Vol] 8.3 g/dL Low 13 - 17 g/dL [place] Interpretation and review of laboratory results Abnormal [place] Hemoglobinon 08-04-2019 Hemoglobin (Bld) [Mass/Vol] 8.0 g/dL Low 13.0-17.0 [facility] Comment on above: Performed By: #### H GB #### [address] [place] [id number] [employer] Buyer: Kehinde Woodward MD Hemoglobin A1Con 08-03-2019 HbA1c (Bld) [Mass fraction] % Low 4.8-5.9 [facility] Comment on above: Result Comment: The ADA and AACC recommend providing the estimated average glucose result to permit better patient understanding of their HBA1c result. Performed By: #### G LYHGB #### [address] [place], [place] [address] [employer] Buyer: Kehinde Woodward MD Glucose [Mass/Vol] mg/dL mg/dL [place], [place] Comment on above: The ADA and AACC rec ommend providing the estimated average glucose result to permit better patient understanding of their HBA1c result. HbA1c (Bld) [Mass fraction] % Low 4.8 - 5.9 % [place], [place] Interpretation and review of laboratory results Abnormal [place] Hemoglobinon 08-01-2019 Hemoglobin (Bld) [Mass/Vol] 8.1 g/dL Low 13.0-17.0 [facility] Comment on above: Performed By: #### H GB #### [facility] [address] [place], [place] [address] [employer] Buyer: Kehinde Woodward MD Hemoglobin (Bld) [Mass/Vol] 8.1 g/dL Low 13 - 17 g/dL [place] Interpretation and review of laboratory results Abnormal [place] Hgb/Hcton 06-10-2019 Hematocrit (Bld) [Volume fraction] 24.3 % Low 40.7-50.3 [facility] Comment on above: Performed By: #### H H #### [facility] [address] [place] [id number] [employer] Buyer: Kehinde Woodward MD Hemoglobin (Bld) [Mass/Vol] 7.4 g/dL Low 13.0-17.0 [facility] Comment on above: Performed By: #### H H #### [facility] [address] [place] [id number] [employer] Buyer: Kehinde Woodward MD Hemoglobinon 06-01-2019 Hemoglobin (Bld) [Mass/Vol] 7.2 g/dL Low 13.0-17.0 [facility] Comment on above: Performed By: #### H GB #### [facility] [address] [place] [address] [employer] Buyer: Kehinde Woodward MD K (Potassium)on 01-14-2019 Potassium [Moles/Vol] 3.6 mmol/L Low 3.7-5.3 [facility] Comment on above: Performed By: #### K #### [facility] [address] [place] [address] [employer] Buyer: Kehinde Woodward MD Otheron 10-19-2018 IMPRESSION: 1. [...] No confirmatory testing will follow. Invalid Interpretation [facility] Comment on above: This Liquid Chromato graphy Mass Spectrometry (LC/MS/MS) test was developed and its performance characteristics determined by Toxicology Laboratory at [facility]. It has not been cleared or [...] Amitriptyline(50), Amphetamine(250), Atenolol(500), Barbiturates(1000), Benzoylecgonine(50), Buprenorphine(50), Bupropion(25), Caffeine(21752), Chlordiazepoxide(50), Chlorpheniramine(100), Chlorpromazine(50), Citalopram(100), Clonazepam(200), Cocaine(25), Codeine(200), [...] Code LAB, [facility] TOXICOLOGY SCREEN URINE - [facility] 10-12-2018 Drugs identified Screen Nom (U) For Medical Purposes Only, Non-forensic, screen results are presumptive. No confirmatory testing will follow. Invalid Interpretation [facility] LAB, [facility] Comment on above: This Liquid Chromato graphy Mass Spectrometry (LC/MS/MS) test was developed and its performance characteristics determined by Toxicology Laboratory at [facility]. It has not been cleared or [...] Amitriptyline(50), Amphetamine(250), Atenolol(500), Barbiturates(200), Benzoylecgonine(50), Buprenorphine(500), Bupropion(25), Caffeine(56733), Cannabinoids(THC)(50), Chlordiazepoxide(50), Chlorpheniramine(100), Chlorpromazine(50), Citalopram(100), Clonazepam(200), Cocaine(25), [...] Location Clementina Montesinos [facility] 09-08-2024 13:40-0400 Diastolic blood pressure 90 mm[Hg] Clementina Montesinos [facility] 09-08-2024 13:40-0400 Heart rate 66 /min Clementina Montesinos [facility] 09-08-2024 13:40-0400 Systolic blood pressure 144 mm[Hg] Clementina Montesinos [facility] 06-17-2024 08:37-0400 Body mass index (BMI) [Ratio] 29.43 kg/m2 Rebeca Gutierrez DYNAMOMETER REPAIRER-REGIONAL EDUCATION MANAGER Work Phone: [facility] 06-17-2024 08:37-0400 Body temperature 97.39 [degF] Rebeca Gutierrez DYNAMOMETER REPAIRER-REGIONAL EDUCATION MANAGER Work Phone: [facility] 06-17-2024 08:37-0400 Body weight 85.23 kg Rebeca Gutierrez DYNAMOMETER REPAIRER-REGIONAL EDUCATION MANAGER Work Phone: [facility] 06-17-2024 08:37-0400 Diastolic blood pressure 75 mm[Hg] Rebeca Gutierrez DYNAMOMETER REPAIRER-REGIONAL EDUCATION MANAGER Work Phone: [facility] 06-17-2024 08:37-0400 Heart rate 53 /min Rebeca Gutierrez DYNAMOMETER REPAIRER-REGIONAL EDUCATION MANAGER Work Phone: [facility] 06-17-2024 08:37-0400 Systolic blood pressure 143 mm[Hg] Rebeca Gutierrez DYNAMOMETER REPAIRER-REGIONAL EDUCATION MANAGER Work Phone: [facility] 06-17-2024 08:36-0400 Body mass index (BMI) [Ratio] 29.43 kg/m2 Daisha Sobotka DO Work Phone: [facility] 06-17-2024 08:36-0400 Body temperature 97.39 [degF] Daisha Sobotka DO Work Phone: [facility] 06-17-2024 08:36-0400 Body weight 85.23 kg Daisha Sobotka DO Work Phone: [facility] 06-17-2024 08:36-0400 Diastolic blood pressure 75 mm[Hg] Daisha Sobotka DO Work Phone: [facility] 06-17-2024 08:36-0400 Heart rate 53 /min Daisha Sobtiaraka DO Work Phone: [facility] 06-17-2024 08:36-0400 Systolic blood pressure 143 mm[Hg] Daisha Mtzka DO Work Phone: [facility] 02-26-2024 09:07-0400 Diastolic blood pressure 56 mm[Hg] Candie Almaguer MD Work Phone: [facility] 02-26-2024 09:07-0400 Heart rate 65 /min Candie Almaguer MD Work Phone: [facility] 02-26-2024 09:07-0400 Systolic blood pressure 113 mm[Hg] Candie Almaguer MD Work Phone: [facility] 02-26-2024 09:06-0400 Body height 170.2 cm Candie Almaguer MD Work Phone: [facility] 02-26-2024 09:06-0400 Body mass index (BMI) [Ratio] 28.9 kg/m2 Candie Almaguer MD Work Phone: [facility] 02-26-2024 09:06-0400 Body weight 83.69 kg Candie Almaguer MD Work Phone: [facility] 02-26-2024 09:06-0400 Respiratory rate 20 /min Candie Almaguer MD Work Phone: [facility] 02-26-2024 09:06-0400 SaO2% (BldA) [Mass fraction] 97 % Candie Almaguer MD Work Phone: [facility] 01-23-2024 15:04-0500 Body temperature 97.9 [degF] Kevin Prince MD Work Phone: [facility] 01-23-2024 15:04-0500 Diastolic blood pressure 67 mm[Hg] Kevin Prince MD Work Phone: [facility] 01-23-2024 15:04-0500 Heart rate 51 /min Kevin Prince MD Work Phone: [facility] 01-23-2024 15:04-0500 Respiratory rate 16 /min Kevin Prince MD Work Phone: [facility] 01-23-2024 15:04-0500 SaO2% (BldA) [Mass fraction] 94 % Kevin Prince MD Work Phone: [facility] 01-23-2024 15:04-0500 Systolic blood pressure 151 mm[Hg] Kevin Prince MD Work Phone: [facility] 01-23-2024 10:46-0500 Body mass index (BMI) [Ratio] 30.94 kg/m2 Kevin Prince MD Work Phone: [facility] 01-23-2024 10:46-0500 Body weight 89.6 kg Kevin Prince MD Work Phone: [facility] 01-18-2024 11:21-0500 Body height 170.2 cm Kevin Prince MD Work Phone: [facility] 01-06-2024 09:04-0500 Body height 170.2 cm Zuly Bruno PHOTOGRAPHY COLORIST Work Phone: [facility] 01-06-2024 09:04-0500 Body mass index (BMI) [Ratio] 32.42 kg/m2 Zuly Bruno PHOTOGRAPHY COLORIST Work Phone: [facility] 01-06-2024 09:04-0500 Body temperature 97.81 [degF] Zuly Aichholz PHOTOGRAPHY COLORIST Work Phone: [facility] 01-06-2024 09:04-0500 Body weight 93.89 kg Zulytray Torresholz PHOTOGRAPHY COLORIST Work Phone: [facility] 01-06-2024 09:04-0500 Diastolic blood pressure 70 mm[Hg] Zuly Aichholz PHOTOGRAPHY COLORIST Work Phone: [facility] 01-06-2024 09:04-0500 Heart rate 95 /min Zuly Aichholz PHOTOGRAPHY COLORIST Work Phone: [facility] 01-06-2024 09:04-0500 Respiratory rate 17 /min Zuly Aichholz PHOTOGRAPHY COLORIST Work Phone: [facility] 01-06-2024 09:04-0500 SaO2% (BldA) [Mass fraction] 99 % Zuly Lexiehholz PHOTOGRAPHY COLORIST Work Phone: [facility] 01-06-2024 09:04-0500 Systolic blood pressure 138 mm[Hg] Zuly Aichholz PHOTOGRAPHY COLORIST Work Phone: [facility] 09-11-2023 10:31-0400 Body temperature 97.81 [degF] Steve Tammy MBBS Work Phone: [facility] 09-11-2023 10:31-0400 Diastolic blood pressure 66 mm[Hg] Steve Tammy MBBS Work Phone: [facility] 09-11-2023 10:31-0400 Heart rate 70 /min Steve Tammy MBBS Work Phone: [facility] 09-11-2023 10:31-0400 Respiratory rate 20 /min Steve Tammy MBBS Work Phone: [facility] 09-11-2023 10:31-0400 SaO2% (BldA) [Mass fraction] 91 % Steve Tammy MBBS Work Phone: [facility] 09-11-2023 10:31-0400 Systolic blood pressure 129 mm[Hg] Steve Tammy MBBS Work Phone: [facility] 09-10-2023 15:50-0400 Body mass index (BMI) [Ratio] 31.99 kg/m2 Steve Tammy MBBS Work Phone: [facility] 09-10-2023 15:50-0400 Body weight 92.67 kg Steve Tammy MBBS Work Phone: 1(298)924-113923 [place] [address] 09-02-2023 07:32-0400 Body height 170.2 cm Steve Tammy MBBS Work Phone: 3(378)357-165823 [place] [address] 08-28-2023 13:33-0400 Body height 170.2 cm Steve Tammy MBBS Work Phone: 1(168)833-431823 [place] [address] 08-28-2023 13:33-0400 Body mass index (BMI) [Ratio] 32.12 kg/m2 Steve Tammy MBBS Work Phone: 9(437)588-543123 [place] [address] 08-28-2023 13:33-0400 Body temperature 97.3 [degF] Steve Tammy MBBS Work Phone: 3(775)012-734623 [place] [address] 08-28-2023 13:33-0400 Body weight 93.03 kg Steve Tammy MBBS Work Phone: 9(212)856-745823 [place] [address] 08-28-2023 13:33-0400 Diastolic blood pressure 41 mm[Hg] Steve Tammy MBBS Work Phone: 6(636)743-528323 [place] [address] 08-28-2023 13:33-0400 Heart rate 116 /min Steve Tammy MBBS Work Phone: 1(716)174-566323 [place] [address] 08-28-2023 13:33-0400 Systolic blood pressure 106 mm[Hg] Steve Tammy MBBS Work Phone: 7(183)322-203223 [place] [address] 06-12-2023 14:50-0400 Body mass index (BMI) [Ratio] 33.8 kg/m2 Rebeca Gutierrez DYNAMOMETER REPAIRER-REGIONAL EDUCATION MANAGER Work Phone: [facility] 06-12-2023 14:50-0400 Body temperature 97.3 [degF] Rebeca Gutierrez DYNAMOMETER REPAIRER-REGIONAL EDUCATION MANAGER Work Phone: [facility] 06-12-2023 14:50-0400 Body weight 97.89 kg Rebeca Gutierrez DYNAMOMETER REPAIRER-REGIONAL EDUCATION MANAGER Work Phone: [facility] 06-12-2023 14:50-0400 Diastolic blood pressure 77 mm[Hg] Rebeca Gutierrez DYNAMOMETER REPAIRER-REGIONAL EDUCATION MANAGER Work Phone: [facility] 06-12-2023 14:50-0400 Heart rate 76 /min Rebeca Gutierrez DYNAMOMETER REPAIRER-REGIONAL EDUCATION MANAGER Work Phone: [facility] 06-12-2023 14:50-0400 Systolic blood pressure 146 mm[Hg] Rebeca Gutierrez DYNAMOMETER REPAIRER-REGIONAL EDUCATION MANAGER Work Phone: [facility] 01-16-2023 08:57-0500 Body height 170.2 cm [facility] Work Phone: [facility] 01-16-2023 08:57-0500 Body mass index (BMI) [Ratio] 33.66 kg/m2 [facility] Work Phone: [facility] 01-16-2023 08:57-0500 Body temperature 97.3 [degF] [facility] Work Phone: [facility] 01-16-2023 08:57-0500 Body weight 97.48 kg [facility] Work Phone: [facility] 01-16-2023 08:57-0500 Diastolic blood pressure 75 mm[Hg] [facility] Work Phone: [facility] 01-16-2023 08:57-0500 Heart rate 76 /min [facility] Work Phone: [facility] 01-16-2023 08:57-0500 Systolic blood pressure 142 mm[Hg] [facility] Work Phone: [facility] 09-10-2022 09:38-0400 Body height 170.2 cm Ryan Yepez MD Work Phone: [facility] 09-10-2022 09:38-0400 Body mass index (BMI) [Ratio] 33.67 kg/m2 Ryan Yepez MD Work Phone: [facility] 09-10-2022 09:38-0400 Body weight 97.52 kg Ryna Yepez MD Work Phone: [facility] 09-10-2022 09:38-0400 Diastolic blood pressure 83 mm[Hg] Ryan Yepez MD Work Phone: [facility] 09-10-2022 09:38-0400 Heart rate 64 /min Ryan Yepez MD Work Phone: [facility] 09-10-2022 09:38-0400 SaO2% (BldA) [Mass fraction] 96 % Ryan Yepez MD Work Phone: [facility] 09-10-2022 09:38-0400 Systolic blood pressure 129 mm[Hg] Ryan Yepez MD Work Phone: [facility] 07-07-2022 13:48-0400 Diastolic blood pressure 76 mm[Hg] Ryan Yepez MD Work Phone: [facility] 07-07-2022 13:48-0400 Heart rate 82 /min Ryan Yepez MD Work Phone: [facility] 07-07-2022 13:48-0400 SaO2% (BldA) [Mass fraction] 96 % Ryan Yepez MD Work Phone: [facility] 07-07-2022 13:48-0400 Systolic blood pressure 141 mm[Hg] Ryan Yepez MD Work Phone: 7(529)591-516701 [address] 06-27-2022 13:32-0400 Body height 170.2 cm Ryan Yepez MD Work Phone: 1(644)081-071201 [address] 06-27-2022 13:32-0400 Body mass index (BMI) [Ratio] 34.24 kg/m2 Ryan Yepez MD Work Phone: 4(554)458-441499 [place] [address] 06-27-2022 13:32-0400 Body temperature 98.6 [degF] Ryan Yepez MD Work Phone: 8(657)438-005299 [place] [address] 06-27-2022 13:32-0400 Body weight 99.16 kg Ryan Yepez MD Work Phone: 4(991)619-473201 [address] 06-27-2022 13:32-0400 Diastolic blood pressure 78 mm[Hg] Ryan Yepez MD Work Phone: 0(619)735-733201 [address] 06-27-2022 13:32-0400 Heart rate 77 /min Ryan Yepez MD Work Phone: [facility] 06-27-2022 13:32-0400 SaO2% (BldA) [Mass fraction] 95 % Ryan Yepez MD Work Phone: [facility] 06-27-2022 13:32-0400 Systolic blood pressure 121 mm[Hg] Ryan Yepez MD Work Phone: 2(526)726-168101 [address] 06-27-2022 10:52-0400 Body height 170.2 cm Rena Brewster RN [facility] 06-27-2022 10:52-0400 Body mass index (BMI) [Ratio] 34.46 kg/m2 Rena Brewster RN [facility] 06-27-2022 10:52-0400 Body temperature 98.2 [degF] Rena Brewster RN [facility] 06-27-2022 10:52-0400 Body weight 99.79 kg Rena Brewster RN [facility] 06-27-2022 10:52-0400 Diastolic blood pressure 73 mm[Hg] Rena Brewster RN [facility] 06-27-2022 10:52-0400 Heart rate 78 /min Rena Brewster RN [facility] 06-27-2022 10:52-0400 Respiratory rate 20 /min Rena Brewster RN [facility] 06-27-2022 10:52-0400 SaO2% (BldA) [Mass fraction] 97 % Rena Brewster RN [facility] 06-27-2022 10:52-0400 Systolic blood pressure 135 mm[Hg] Rena Brewster RN [facility] 06-12-2022 14:23-0400 Body mass index (BMI) [Ratio] 34.59 kg/m2 Steve Munoz MBBS Work Phone: [facility] 06-12-2022 14:23-0400 Body temperature 97 [degF] Steve Munoz MBBS Work Phone: [facility] 06-12-2022 14:23-0400 Body weight 100.2 kg Steve Farrari MBBS Work Phone: [facility] 06-12-2022 14:23-0400 Diastolic blood pressure 66 mm[Hg] Steve Farrari MBBS Work Phone: [facility] 06-12-2022 14:23-0400 Heart rate 63 /min Steve Farrari MBBS Work Phone: [facility] 06-12-2022 14:23-0400 Systolic blood pressure 133 mm[Hg] Steve LEIGH Work Phone: [facility] 05-20-2022 15:21-0400 Body temperature 97.9 [degF] Gian Villatoro MD Work Phone: [facility] 05-20-2022 15:21-0400 Diastolic blood pressure 64 mm[Hg] Gian Villatoro MD Work Phone: [facility] 05-20-2022 15:21-0400 Heart rate 55 /min Gian Villatoro MD Work Phone: [facility] 05-20-2022 15:21-0400 Respiratory rate 15 /min Gian Villatoro MD Work Phone: [facility] 05-20-2022 15:21-0400 SaO2% (BldA) [Mass fraction] 95 % Gian Villatoro MD Work Phone: [facility] 05-20-2022 15:21-0400 Systolic blood pressure 145 mm[Hg] Gian Villatoro MD Work Phone: [facility] 05-19-2022 12:15-0400 Body mass index (BMI) [Ratio] 35.87 kg/m2 Gian Villatoro MD Work Phone: [facility] 05-19-2022 12:15-0400 Body weight 103.92 kg Gian Villatoro MD Work Phone: [facility] Comment on above: standing scale 05-16-2022 16:19-0400 Body height 170.2 cm Gian Villatoro MD Work Phone: [facility] 10-19-2018 08:44-0500 BMI (Body Mass Index) 26.58 kg/m2 [facility] Work Phone: 10-19-2018 08:44-0500 BP Diastolic 76 mm[Hg] [facility] Work Phone: 10-19-2018 08:44-0500 BP Systolic 144 mm[Hg] [facility] Work Phone: 10-19-2018 08:44-0500 Height 172.7 cm [facility] Work Phone: 10-19-2018 08:44-0500 Pulse (Heart Rate) 92 /min [facility] Work Phone: 10-19-2018 08:44-0500 Pulse Oximetry 99 % [facility] Work Phone: 10-19-2018 08:44-0500 Respiratory Rate 16 /min [facility] Work Phone: 10-19-2018 08:44-0500 Weight 79.29 kg [facility] Work Phone: 10-12-2018 09:50-0500 BMI (Body Mass Index) 27.24 kg/m2 [facility] Work Phone: 10-12-2018 09:50-0500 Body Temperature 98.6 [degF] [facility] Work Phone: 10-12-2018 09:50-0500 BP Diastolic 80 mm[Hg] [facility] Work Phone: 10-12-2018 09:50-0500 BP Systolic 157 mm[Hg] [facility] Work Phone: 10-12-2018 09:50-0500 Height [facility].5 [facility] Work Phone: 10-12-2018 09:50-0500 Pulse (Heart Rate) 94 /min [facility] Work Phone: 10-12-2018 09:50-0500 Weight 78.29 kg [facility] Work Phone: Encounters Encounter Date Encounter Type Care Provider Facility Start: 11-22-2024 ambulatory Steph Almodovar [facility] y:DOTTIE Marie Start: 09-08-2024 End: 09-08-2024 ambulatory ZULY BRUNO Facility:[facility] Start: 09-08-2024 End: 09-08-2024 Patient encounter procedure Clementina Montesinos [facility] Start: 09-07-2024 ambulatory ZULY BRUNO Facility: [facility] Start: 09-05-2024 End: 09-05-2024 ambulatory Angel Madsene LIVIAh,PharmD Pharm[facility] Start: 09-05-2024 End: 09-05-2024 Patient encounter procedure Angel Madsene LIVIAh,PharmD [facility] Start: 08-24-2024 ambulatory Steph Almodovar Facility: [facility] Start: 08-23-2024 End: 08-23-2024 ambulatory ZULY BRUNO Not Available Start: 06-23-2024 End: 06-23-2024 ambulatory Meka Munoz [facility] Start: 06-23-2024 End: 06-23-2024 Patient encounter procedure Meka Munoz [facility] Start: 06-17-2024 End: 06-17-2024 Office outpatient visit 25 minutes Daisha Max DO Work Phone: [facility] Comment on above: Liver lesion (Primar y Dx); Liver transplant recipient; High risk medication use; Therapeutic drug monitoring; 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) Start: 06-17-2024 ambulatory DAISHA Joyner ity:[facility] Start: 05-26-2024 End: 05-26-2024 ambulatory Evan Bolton [facility],PharmD Pharmacy Outpatient [facility] Start: 05-26-2024 End: 05-26-2024 Patient encounter procedure Evan Bolton [facility],PharmD [facility] [place] Start: 05-13-2024 End: 05-13-2024 ambulatory [facility] Start: 04-18-2024 End: 04-18-2024 ambulatory ZULY BRUNO Not Available Start: 03-24-2024 End: 03-24-2024 Patient encounter procedure Angel Carpio [facility],PharmD [facility] [place] Start: 03-24-2024 End: 03-24-2024 ambulatory Angel Carpio [facility],PharmD [facility] [place] Start: 03-22-2024 End: 03-22-2024 ambulatory JOHNNA BRINK Not Available Start: 03-17-2024 End: 03-17-2024 ambulatory JOHNNA BRINK Not Available Start: 03-14-2024 End: 03-14-2024 ambulatory FIDELINA DANIEL Not Available Start: 03-10-2024 End: 03-10-2024 ambulatory JOHNNA BRINK Not Available Start: 03-08-2024 End: 03-08-2024 ambulatory JOHNNA BRINK Not Available Start: 03-03-2024 End: 03-03-2024 ambulatory JOHNNA BRINK Not Available Start: 03-02-2024 End: 03-02-2024 ambulatory Meka Munoz [facility] Start: 03-02-2024 End: 03-02-2024 Patient encounter procedure Meka Munoz [facility] [place] Start: 03-01-2024 ambulatory ZULY BRUNO Facility: [facility] Start: 03-01-2024 End: 03-01-2024 ambulatory JOHNNA BRINK Not Available Start: 02-26-2024 ambulatory CANDIE ALMAGUER Facility: [facility] Start: 02-26-2024 End: 02-26-2024 Office outpatient new 30 minutes Candie Almaguer MD Work Phone: [facility] Comment on above: Heart failure, diast olic, acute (Primary Dx) Start: 02-26-2024 ambulatory KELVINMASSIEL PACHECO Facility: [facility] Start: 02-25-2024 End: 02-25-2024 ambulatory FIDELINA SANCHEZ Not Available Start: 02-23-2024 End: 02-23-2024 ambulatory PALMA Edwards SUZANNE Not Available Start: 02-11-2024 End: 02-11-2024 ambulatory ZULY BRUNO Not Available Start: 01-16-2024 End: 01-23-2024 Encounter for other preprocedural examination KELVIN PACHECO Facility:[facility] Start: 01-16-2024 End: 01-23-2024 Evaluation and management of inpatient Kevin Prince MD Work Phone: [facility] Comment on above: Pleural effusion on right Start: 01-16-2024 End: 01-23-2024 Patient encounter status Kevin Prince MD Work Phone: [facility] Work Phone: Start: 01-12-2024 End: 01-12-2024 ambulatory Angel Fete RPh,PharmD Pharmacy Outpatient [facility] Start: 01-12-2024 End: 01-12-2024 Patient encounter procedure Angel Fete RPh,PharmD [facility] [place] Start: 01-08-2024 Clinisync Result Encounter Generic External Data Provider [facility] External Department Unsolicited Start: 01-08-2024 Clinisync Result Encounter Generic External Data Provider [facility] External Department Unsolicited Start: 01-06-2024 End: 01-06-2024 Office outpatient visit 25 minutes Zuly Bruno PHOTOGRAPHY COLORIST Work Phone: [facility] Comment on above: Bilateral lower extr emity edema (Primary Dx); 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); Atherosclerosis 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); Obesity (BMI 30-39.9); DARLENE (obstructive sleep apnea); Tremor; Immunocompromised ([facility]); Primary hypertension ([facility]); Shortness of breath Start: 01-06-2024 End: 01-06-2024 ambulatory ZULY AICHHOLZ Not Available Start: 01-01-2024 Clinisync Result Encounter Generic External Data Provider [facility] External Department Unsolicited Start: 01-01-2024 Clinisync Result Encounter Generic External Data Provider [facility] External Department Unsolicited Start: 11-03-2023 End: 11-03-2023 ambulatory ZULY AICHHOLZ Not Available Start: 10-06-2023 ambulatory Angel Carpio [facility],PharmD Pharmacy Outpatient [facility] Start: 10-06-2023 Patient encounter procedure Angel Carpio [facility],PharmD [facility] [place] Start: 09-29-2023 [facility] Start: 09-23-2023 [facility]ulatory [facility] Start: 09-15-2023 ambulatory [facility] Start: 08-28-2023 End: 09-11-2023 Evaluation and management of inpatient Steve MORENOBS Work Phone: [facility] Start: 08-28-2023 End: 08-28-2023 Office outpatient visit 25 minutes Steve Munoz MBBS Work Phone: [facility] Comment on above: Immunosuppressed sta tus (Primary Dx); Kidney replaced by transplant; Aftercare following organ transplant; High risk medication use; Other general symptoms and signs; Abnormal blood chemistry; Hypertension secondary to other renal disorders Start: 08-19-2023 ambulatory Meka rueda [facility] Start: 08-19-2023 Patient encounter procedure Meka Munoz [facility] [place] Start: 06-12-2023 End: 06-12-2023 Office outpatient visit 25 minutes Steve Munoz MBBS Work Phone: [facility] Comment on above: 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) Start: 06-10-2023 ambulatory Maren Bar RPh,PharmD [facility]patient [facility] Start: 06-10-2023 Patient encounter procedure Maren Bar RPh,PharmD [facility] [place] Start: 04-28-2023 End: 04-29-[address] DOCTOR [...] DO Work Phone: [facility] Comment on above: Abnormal blood chemi stry (Primary Dx); Liver transplant recipient; Kidney replaced by transplant; Immunosuppressed status; Aftercare following organ transplant Start: 12-29-2022 End: 12-30-[address] DOCTOR EVANS Facility:[facility] Start: 11-04-2022 End: 11-05-[address] DOCTOR EVNAS Facility:[facility] Start: 09-15-2022 End: 09-16-[address] DOCTOR EVANS Facility:[facility] Start: 09-10-2022 End: 09-10-2022 Office outpatient visit 25 minutes Ryan Yepez MD Work Phone: [facility] Comment on above: BPH with obstruction /lower urinary tract symptoms (Primary Dx); Encounter for screening for malignant neoplasm of prostate Start: 08-28-2022 End: 08-29-2022 ambulatory ROB BRUNO Facility:[facility] Start: 08-14-2022 End: 08-15-[address] DOCTOR EVANS Facility:[facility] Start: 07-07-2022 End: 07-07-2022 Patient encounter procedure Ryan Yepez MD Work Phone: [facility] Comment on above: Other hydronephrosis (Primary Dx); [...] MD Work Phone: [facility] Comment on above: Other hydronephrosis (Primary Dx) [...] Comment on above: FAYE (acute kidney in [facility]) Start: 05-15-2022 End: 05-15-[address] GEORGE LAWRENCE Facility: Start: 05-11-2022 End: 05-11-[address] GEORGE LAWRENCE Facility: Start: 03-14-2022 ambulatory Comfort Rivera [facility] Work Phone: [facility] [place] Start: 03-14-2022 Patient encounter procedure Comfort Rivera [facility] Work Phone: [facility] [place] Start: 06-14-2021 End: 06-14-2021 ambulatory Comfort Rivera [facility] Work Phone: [facility] Start: 06-14-2021 Patient encounter procedure Comfort Rivera [facility] Work Phone: [facility] Start: 01-20-2020 End: 01-27-2020 Patient encounter procedure PEPE CASE Facility:[facility] Start: 01-06-2020 End: 01-07-2020 Patient encounter procedure [facility] Start: 01-06-2020 End: 01-06-2020 Subsequent hospital visit by physician [facility] Start: 10-24-2019 End: 10-25-2019 [facility] Start: 10-24-2019 End: 10-24-2019 Subsequent hospital visit by physician [facility] Start: 08-27-2019 End: 08-28-2019 Patient encounter procedure [facility] Start: 08-27-2019 End: 08-27-2019 Subsequent hospital visit by physician [facility] Start: 08-08-2019 End: 08-09-2019 Patient encounter procedure [facility] Start: 08-08-2019 End: 08-08-2019 Subsequent hospital visit by physician [facility] Start: 08-03-2019 End: 08-04-2019 Patient encounter procedure [facility] Start: 08-03-2019 End: 08-03-2019 Subsequent hospital visit by physician [facility] Start: 08-01-2019 End: 08-02-2019 Patient encounter procedure ROB PATINO [facility] Start: 08-01-2019 End: 08-01-2019 Subsequent hospital visit by physician [facility] Start: 06-10-2019 End: 06-11-2019 Patient encounter procedure RENA GUDINO [facility] Start: 06-01-2019 End: 06-02-2019 Patient encounter procedure RENA GUDINO [facility] Start: 01-14-2019 End: 01-15-2019 Patient encounter procedure RENA GUDINO [facility] Start: 11-17-2018 End: 11-17-2018 Patient encounter procedure Fidelina Pierson [facility] Pre [facility] Office Comment on above: Social Work Follow-u p Start: 10-19-2018 End: 10-19-2018 Patient encounter [facility] Comment on above: Cirrhosis [...] 10-13-2018 Patient encounter procedure Autumn [facility] Comment on above: Reschedule Outside Medical Allan rds Request Start: 10-12-2018 End: 10-12-2018 Patient encounter procedure Sophie Raeann [facility] Pre Transplant Office [...] 10-05-2018 Patient encounter status Comfort Rivera [facility] Work Phone: [facility] Procedures Date Procedure Procedure Detail Performing [...] By: #### C HM7, HFP, MGO #### [facility] (DEFAULT) [address] [place] [id number] Start: 01-22-2024 Assay of magnesium Just in [...] Phone: Start: 01-20-2024 ITRACONAZOLE LEVEL Jennifer Alarcon [facility] Work Phone: Start: 01-20-2024 Oscillating positive expiratory [...] quantifica tion each organism Fidelina Alarcon [facility] Work Phone: Start: 01-18-2024 Echo tthrc r-t [...] AURIS SCREEN BY PCR Carol Ann Capps DYNAMOMETER REPAIRER-GLASS INSERTER Work Phone: Start: 01-08-2024 ALL CBC WITH [...] AURIS SCREEN BY PCR Carol Ann Capps DYNAMOMETER REPAIRER-GLASS INSERTER Work Phone: Start: 08-28-2023 CBC AND ELECTRONIC [...] above: Performed By: #### C MP #### [facility] [address] [place] [address] Dr. Dwight Waters Start: 07-07-2022 Rmvl nfros [...] S/P liver trans plant Comfort Rivera [facility] Work Phone: Start: 04-08-2020 H/O: liver recipient Liver tra nsplant recipient Comfort Rivera [facility] Work Phone: Start: 01-06-2020 Potassium serum plasma/whole [...] -donor kidney transplant recipient Comfort Rivera [facility] Work Phone: Start: 06-10-2019 HEMOGLOBIN AND HEMAT OCRIT, BLOOD ROB KASDEYVII Start: 06-01-2019 Blood count hemoglobin ROB KASMANI Start: 03-22-2019 Lipid 1996 panel - S fabricio or Plasma Comfort Rivera [facility] Work Phone: Start: 01-14-2019 Potassium serum plasma/whole [...] End: 10-12-2018 Antibody cytomegalovirus cmv Yovani Mejias [employer] Work Phone: Start: 10-12-2018 End: 10-12-2018 Antibody dann-montes eb virus viral capsid vca Yovani Mejias [employer] Work Phone: Start: 10-12-2018 End: 10-12-2018 Antibody herpes smplx type 1 Yovani Mejias [employer] Work Phone: Start: 10-12-2018 End: 10-12-2018 Antibody rubeola Yovani Magalie Dominga Work Phone: Start: 10-12-2018 End: 10-12-2018 Antibody varicella-zoster Yovani Orr Work Phone: Start: 10-12-2018 End: 10-12-2018 Assay of ethanol Yovani Orr Work Phone: Start: 10-12-2018 End: 10-12-2018 Assay of ferritin Yovani Mejias [employer] Work Phone: Start: 10-12-2018 End: 10-12-2018 Assay of iron Yovani Mejias [employer] Work Phone: Start: 10-12-2018 End: 10-12-2018 Assay of parathormone Yovani Mejias [employer] Work Phone: Start: 10-12-2018 End: 10-12-2018 Assay of phosphatase alkaline Yovani Orr [employer] Phone: Start: 10-12-2018 End: 10-12-2018 Bilirubin total Yovani Orr Work Phone: Start: 10-12-2018 End: 10-12-2018 Calcium total Yovani Mejias [employer] Work Phone: Start: 10-12-2018 End: 10-12-2018 CBC, EDIF, PLATELET Yovani Orr Work Phone: Start: 10-12-2018 End: 10-12-2018 Creatinine blood Yovani Orr Work Phone: Start: 10-12-2018 End: 10-12-2018 Drug screening cannabinoids natural Yovani Orr Work Phone: Start: 10-12-2018 End: 10-12-2018 Hepatitis a antibody haab Yovani [employer] Work Phone: Start: 10-12-2018 End: 10-12-2018 Hepatitis [...] Kidney replaced by transplant Rebeca M Gutierrez DYNAMOMETER REPAIRER-REGIONAL EDUCATION MANAGER Work Phone: Plan of Treatment Date Care Activity Detail Author Start: 09-20-2029 Screening for malignant neoplasm of colon [facility] Start: 08-15-2025 Potassium [Moles/volume] in Serum or Plasma POTASSIUM [facility] Start: 07-04-2025 Potassium [Moles/volume] in Serum or Plasma POTASSIUM [facility] Start: 06-20-2025 Potassium [Moles/volume] in Serum or Plasma POTASSIUM [facility] Start: 06-16-2025 End: 06-16-2025 Patient encounter procedure [facility] Start: 06-13-2025 Potassium [Moles/volume] in Serum or Plasma POTASSIUM [facility] Start: 05-23-2025 Potassium [Moles/volume] in Serum or Plasma POTASSIUM [facility] Start: 03-28-2025 Potassium [Moles/volume] in Serum or Plasma POTASSIUM [facility] Start: 03-21-2025 Potassium [Moles/volume] in Serum or Plasma POTASSIUM [facility] Start: 02-28-2025 Potassium [Moles/volume] in Serum or Plasma POTASSIUM [facility] Start: 01-23-2025 Potassium [Moles/volume] in Serum or Plasma POTASSIUM [facility] Start: 09-07-2024 End: 09-07-2024 Telemedicine consultation with patient 09/07/2024 3:00 PM EDT Telemedicine Infectious Diseases Care [facility] [address] [facility] [address] Evan White DO [address] [place] [address] [facility] Start: 08-31-2024 Screening for malignant neoplasm of lung [facility] Start: 07-31-2024 Influenza vaccination INFLUENZA VACCINE (#1) [facility] Start: 06-17-2024 End: 06-17-2024 ambulatory [facility] Start: 06-17-2024 End: 06-17-[address] [facility] Start: 03-22-2024 Fasting lipid profile LIPID SCREENING [facility] Start: 03-22-2024 Lipid panel [facility] Start: 02-26-2024 End: 02-26-2024 Patient encounter procedure 02/26/2024 9:30 AM EDT Office Visit [facility] [address] [place] [phone] Candie Almaguer MD [address] [place] [phone] [facility] Start: 02-11-2024 End: 02-11-2024 Patient encounter procedure 02/11/2024 10:30 AM EDT Office Visit [facility] [address] [place] [address] Zuly Bruno NP [address] [place] [address] [facility] Start: 02-09-2024 End: 02-09-2024 Telemedicine consultation with patient 02/09/2024 3:30 PM EDT Telemedicine [facility] [address] [place] [phone] Hakeem Alamo MD [address] [place] [address] [facility] Start: 01-15-2024 End: 01-15-2024 ambulatory [facility] Start: 01-15-2024 End: 01-15-2024 Patient encounter procedure [facility] Start: 01-06-2024 End: 01-06-2026 Echocardiogram 2D complete Echocardiogram 2D complete Echocardiography Routine DARLENE (obstructive sleep apnea) Primary hypertension (CMS/HCC) Bilateral lower extremity edema Shortness of breath Expected: 01/06/2024 (Approximate), Expires: 01/06/2026 [facility] Work Phone: Comment on above: Expected: 01/06/2024 (Approximate), Expi res: 01/06/2026 Start: 01-06-2024 End: 01-06-2024 Patient encounter procedure 01/06/2024 9:00 AM EST [facility] [address] [place] [place] [phone] Zuly Bruno NP [address] [place] [address] [facility] Start: 12-08-2023 End: 09-07-2024 CT Chest WO contrast [facility] Work Phone: Start: 12-01-2023 COVID-19 VACCINE (2 - Moderna risk series) COVID-19 VACCINE (2 - Moderna risk series) [facility] Start: 09-23-2023 End: 09-23-[address] [facility] Start: 09-23-2023 End: 09-23-2023 Telemedicine consultation with patient 09/23/2023 4:00 PM EDT Telemedicine [facility] [address] [place] [phone] Hakeem Alamo MD [address] [place] [address] [facility] Start: 09-15-2023 End: 09-10-2024 ITRACONAZOLE LEVEL [facility] Start: 08-25-2023 End: 08-25-2024 ALLOSCREEN RECIPIENT (POST TX PRA) ALLOSCREEN RECIPIENT (POST TX PRA) Lab Routine Kidney replaced by transplant Aftercare following organ transplant Immunosuppressed status High risk medication use Other general symptoms and signs Abnormal blood chemistry Expected: 08/25/2023, Expires: 08/25/2024 [facility] Comment on above: Expected: 08/25/2023, Expires: Start: 07-31-2023 Influenza vaccination [facility] Start: 06-12-2023 End: 06-12-2023 Patient encounter procedure 06/12/2023 Office Visit Transplant Surgery Steve Munoz MBBS [address] [place] [address] [facility] Start: 03-11-2023 End: 03-11-2023 Telemedicine consultation with patient 03/11/2023 Telemedicine Urology Ryan Yepez MD [address] [facility] [address] [place] [address] [facility] Start: 01-16-2023 End: 01-16-2023 Patient encounter procedure 01/16/2023 Office Visit Transplant Surgery [facility] Start: 10-31-2022 End: 10-31-2022 Patient encounter procedure 10/31/2022 Office Visit Transplant Surgery Steve Munoz MBBS [address] [place] [address] [facility] Start: 09-10-2022 End: 09-10-2023 PSA screening PSA, SCREENING Lab Routine BPH with obstruction/lower urinary tract symptoms Encounter for screening for malignant neoplasm of prostate Expected: 09/10/2022 (Approximate), Expires: 09/10/2023 [facility] Comment on above: Expected: 09/10/2022 (Approximate), Expi res: 09/10/2023 Start: 08-11-2022 End: 08-11-2022 Patient encounter procedure 08/11/2022 Office Visit Ryan Webster MD [address] [facility] [address] [place] [address] Urolog Eye [facility] [place] Start: 07-31-2022 Influenza vaccination [facility] Start: 07-07-2022 End: 07-07-2022 Patient encounter procedure 07/07/2022 Office Visit Ryan Webster MD [address] [facility] [address] [place] [address] [facility] [place] Start: 07-07-2022 End: 07-07-2023 FLUORO IMAGING FOR UROLOGY [facility] Comment on above: Expected: 07/07/2022, Expires: 3 1 Occurrences starti ng 07/07/2022 until 07/07/2022 Start: 06-27-2022 End: 06-27-2022 Patient encounter procedure 06/27/2022 Office Visit Ryan Webster MD [address] [facility] [address] [place] [address] [facility] Start: 06-27-2022 End: 06-27-2023 Basic metabolic 2000 panel - Serum or Plasma BASIC METABOLIC PANEL Lab Routine Other hydronephrosis Expected: 06/27/2022, Expires: 06/27/2023 [facility] Comment on above: Expected: 06/27/2022, Expires: 3 Start: 06-27-2022 End: 06-27-2022 Patient encounter procedure 06/27/2022 Appointment Computerized Tomography Scan Ryan Yepez MD [address] [facility] [address] [place] [id number] Department of Radiology Start: 06-15-2022 End: 05-16-2023 CT Abdomen and Pelvis WO contrast CT ABDOMEN/PELVIS WITHOUT CONTRAST Imaging Routine FAYE (acute kidney injury) Expected: 06/15/2022 (Approximate), Expires: 05/16/2023 [facility] Work Phone: Comment on above: Expected: 06/15/2022 (Approximate), Expi res: 05/16/2023 Start: 06-12-2022 End: 06-12-2022 Patient encounter procedure 06/12/2022 Office Visit Transplant Surgery Steve Munoz MBBS [address] 11[address] [place] [address] [facility] Start: 06-11-2022 End: 06-11-2023 BK VIRUS DNA QN, PCR, PLASMA BK VIRUS DNA QN, PCR, PLASMA Lab Routine Kidney replaced by transplant Liver replaced by transplant Abnormal blood chemistry Expected: 06/11/2022, Expires: 06/11/2023 [facility] Comment on above: Expected: 06/11/2022, Expires: Start: 06-04-2022 End: 06-04-2022 Patient encounter procedure 06/04/2022 Office Visit Interventional Radiology [facility] Start: 10-18-2021 End: 10-18-2021 Patient encounter procedure 10/18/2021 Office Visit Transplant Surgery Steve Munoz MBBS [address] [place] [address] [facility] Start: 07-31-2021 Influenza vaccination INFLUENZA VACCINE (#1) [facility] Start: 07-26-2021 End: 07-26-2021 Patient encounter procedure 07/26/2021 Office Visit Transplant Surgery [facility] Start: 2021 Prostate specific antigen measurement [facility] Start: 2021 Screening for malignant neoplasm of lung LUNG CANCER SCREENING [facility] Start: 2021 Zoster vaccine hzv live for subcutaneous use ZOSTER (SHINGLES) VACCINE (1 of 2) [facility] Start: 09-20-2020 Colonoscopy COLORECTAL CANCER SCREENING DISCUSSION [facility] Start: 09-20-2020 Screening for malignant neoplasm of colon [facility] Start: 07-31-2019 Influenza vaccination Flu vaccine (#1) [place], [place] Start: 05-22-2019 Annual Wellness Visit (AWV) Annual Wellness Visit (AWV) [place] Start: 04-18-2019 End: 10-19-2019 Ultrasonography of abdomen US ABDOMEN RUQ/LIVER/GB Routine Cirrhosis of liver without ascites, unspecified hepatic cirrhosis type Expected: 04/18/2019 (Approximate), Expires: 10/19/2019 [facility] Work Phone: Comment on above: Expected: 04/18/2019 (Approximate), Expi res: 10/19/2019 Start: 01-25-2019 End: 01-25-2019 Ambulatory 01/25/2019 Office Visit Gastroenterology Christin Elizabeth, DYNAMOMETER REPAIRER-REGIONAL EDUCATION MANAGER [address] [place] [address] Division of Gastroenterology and Hepatology Gavin Start: 11-19-2018 End: 11-19-2018 Ambulatory 11/19/2018 Appointment Pulmonary Diagnostics [facility] Start: 11-19-2018 End: 11-19-2018 Ambulatory [facility] Start: 10-19-2018 End: 10-19-2018 Ambulatory Ultrasound Jakob Start: 10-12-2018 End: 10-12-2019 Hemoglobin A1c/Hemoglobin.total mass fraction (Bld) HEMOGLOBIN A1C Routine Alcoholic cirrhosis, unspecified whether ascites present Pre-transplant evaluation for liver transplant Expected: 10/12/2018, Expires: 10/12/2019 [facility] Work Phone: Comment on above: Expected: 10/12/2018, Expires: 9 Start: 10-12-2018 End: 10-12-2019 TYPE AND SCREEN - NOT FOR TRANSFUSION TYPE AND SCREEN - NOT FOR TRANSFUSION Routine Alcoholic cirrhosis, unspecified whether ascites present Pre-transplant evaluation for liver transplant Expected: 10/12/2018, Expires: 10/12/2019 [facility] Work Phone: Comment on above: Expected: 10/12/2018, Expires: 9 Start: 07-31-2018 Influenza vaccination INFLUENZA VACCINE (#1) [facility] Work Phone: Start: 2011 Fasting lipid profile LIPID SCREENING [facility] Work Phone: Start: 2011 Lipid screen Lipid screen [place], [place] Start: 1990 DTaP/Tdap/Td vaccine (1 - Tdap) DTaP/Tdap/Td vaccine (1 - Tdap) [place] Start: 1990 Hepatitis B vaccination HEP B VACCINE (1 of 3 - 19+ 3-dose series) [facility] Start: 1990 Hepatitis B Vaccine (1 of 3 - Risk Recombivax 3-dose series) Hepatitis B Vaccine (1 of 3 - Risk Recombivax 3-dose series) [place] Start: 1990 Third diphtheria, tetanus and acellular pertussis (DTaP) vaccination [facility] Start: 1990 Zoster vaccine hzv live for subcutaneous use ZOSTER (SHINGLES) VACCINE (1 of 2) [facility] Start: 1990 [facility] Start: 1989 Tetanus vaccination TETANUS [facility] Start: 1986 HIV screen HIV screen [place], [place] Start: 02-17-1984 HIV screening HIV SCREENING DISCUSSION [facility] Work Phone: Start: 1983 COVID-19 VACCINE (1) COVID-19 VACCINE (1) [facility] Start: 1982 DTaP/Tdap/Td vaccine (1 - Tdap) DTaP/Tdap/Td vaccine (1 - Tdap) [place] Start: 1977 Pneumococcal 0-64 years Vaccine (1 of 3 - PCV13) Pneumococcal 0-64 years Vaccine (1 of 3 - PCV13) [place] Start: 1977 PNEUMOCOCCAL VACCINE SERIES (1 - PCV) PNEUMOCOCCAL VACCINE SERIES (1 - PCV) [facility] Start: 1977 PNEUMOCOCCAL VACCINE SERIES (1 of 2 - PCV) PNEUMOCOCCAL VACCINE SERIES (1 of 2 - PCV) [facility] Start: 1977 [facility] Start: 02-17-1976 COVID-19 VACCINE (#1) COVID-19 VACCINE (#1) [facility] Start: 02-17-1976 [facility] Start: 1971 COVID-19 VACCINE (#1) COVID-19 VACCINE (#1) [facility] Start: 1971 Hepatitis B vaccination HEP B VACCINE (1 of 3 - 3-dose series) [facility] Start: 1971 Medicare Annual Wellness (AWV) Medicare Annual Wellness (AWV) [facility] Start: 1971 Screening for malignant neoplasm of colon [facility] Start: 1971 Tetanus vaccination [facility] BK VIRUS DNA QN, PCR , PLASMA BK VIRUS DNA QN, PCR, PLASMA Lab Routine Kidney replaced by transplant Liver replaced by transplant Abnormal blood chemistry 06/12/2022 3:38 PM EDT [facility] CALCULI, URINARY (KIDNEY STONE) CALCULI, URINARY (KIDNEY STONE) Fluids Routine 05/19/2022 8:16 AM EDT [facility] Work Phone: CANNABINOIDS, QUANT (URINE)THC CONFIRMATION CANNABINOIDS, QUANT (URINE)THC CONFIRMATION Routine Alcoholic cirrhosis, unspecified whether ascites present ESRD (end stage renal disease) on dialysis Pre-transplant evaluation for liver transplant 10/12/2018 12:57 PM EST [facility] Work Phone: End: 09-10-2024 CHEM 6 (LYTES, BUN CREA) [facility] EBV VCA IGG AB EBV VCA IGG AB R outine Alcoholic cirrhosis, unspecified whether ascites present ESRD (end stage renal disease) on dialysis Pre-transplant evaluation for liver transplant 10/12/2018 12:57 PM [facility] Work Phone: Fungus identified in Unspecified specimen by Culture [facility] HLA TYPING (SOLID ORGAN) HLA TYPING [...] [facility] Work Phone: MR Abdomen WO and W contrast IV MRI ABDOMEN WITH AND WITHOUT CONTRAST Imaging Routine Liver lesion Ordered: 06/17/2024 [facility] Comment on above: Ordered: 06/17/2024 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 specific culture [facility] PLACEMENT NEPHROSTOM Y CATHETER PERCUTANEOUS W/ IMAGE GUIDANCE PLACEMENT NEPHROSTOMY CATHETER PERCUTANEOUS W/ IMAGE GUIDANCE Imaging Routine Hydronephrosis due to obstruction of ureteral orifice FAYE (acute kidney injury) 05/17/2022 11:08 AM EDT [facility] WI POST VOID RESIDUAL WI POST VO ID RESIDUAL WI - OFFICE PERFORMED Routine BPH with obstruction/lower urinary tract symptoms Ordered: 09/10/2022 [facility] Comment on above: Ordered: 09/10/2022 PTH [...] Occurrences starting 01/16/2024 until 01/16/2024 [facility] Comment on above: One Time for 1 Occurrences starting 12/31 until 01/16/2024 End: 09-10-2024 TACROLIMUS LEVEL, TROUGH (PRE DRUG LEVEL) [facility] VARICELLA IGG AB (IM M STATUS) VARICELLA IGG AB (IMM STATUS) Routine Alcoholic cirrhosis, unspecified whether ascites present ESRD (end stage renal disease) on dialysis Pre-transplant evaluation for liver transplant 10/12/2018 12:57 PM [facility] Work Phone: Immunizations Immunization Date Immunization Notes Care Provider Fa jimmyty 11-03-2023 influenza virus vacc ine, unspecified formulation Generic Provider [facility] 11-03-2023 Moderna SARS-CoV-2 50mcg/0.5mL Booster Generic Provider [facility] Payers Date Payer Category Payer Unknown [id number] 2019 Unknown [facility] [id number] 2019-Present [id number] 2018 Medicaid MEDICAID [facility] DEPT OF JOB xxxxxxxxxxxx 2018-Present [phone] [address] [place] [address] xxxxxxxxxxxx [id number] 2018 Medicaid MEDICAID MEDICAI D [id number] 2018-Present [address] [place] [address] [id number] .[id number] 2018 Medicaid [id number] [id number] .[id number] 2018 Medicare MEDICARE MEDICAR E PART A AND B xxxxxxxxxxx 2018-Present [phone] [address] [address] [place] [address] xxxxxxxxxxx [id number] .[id number] 2018 Medicare [id number] 2018 Medicare MEDICARE MEDICAR E A AND B [id number] 2018-Present [address] [place] [address] [id number] [id number] .[id number] 2018 Medicare [id number]. 1.13.172.2.7.3 .770125.315 1971 Unknown [id number] 2.16.840.1.662581.3.579.2.173 1971 Unknown [id number] 2.16.840.1.113769.3.579.2.173 1971 Unknown [id number] 2.16.840.1.086852.3.579.2.173 1971 Unknown [id number] 2.16.840.1.742289.3.579.2.173 1971 Unknown [id number] 2.16.840.1.469951.3.579.2.173 1971 Unknown [id number] 2.16.840.1.959350.3.579.2.173 1971 Unknown [id number] 2.16.840.1.695051.3.579.2.173 1971 Unknown [id number] 2.16.840.1.803713.3.579.2.173 1971 Unknown [id number] 2.16.840.1.080473.3.579.2.647 1971 Unknown [id number] 2.16.840.1.477903.3.579.2.593 1971 Unknown [id number] 2.16.840.1.058799.3.579.2.593 1971 Unknown [id number] 2.16.840.1.297354.3.579.2.593 1971 Unknown [id number] 2.16.840.1.138077.3.579.2.593 1971 Unknown [id number] 2.16.840.1.616086.3.579.2.593 1971 Unknown [id number] 2.16.840.1.711121.3.579.2.593 1971 Unknown [id number] 2.16.840.1.333741.3.579.2.593 1971 Unknown [id number] 2.16.840.1.672076.3.579.2.593 1971 Unknown [id number] 2.16.840.1.586526.3.579.2.593 1971 Unknown [id number] 2.16.840.1.870608.3.579.2.593 1971 Unknown [id number] 2.16.840.1.819575.3.579.2.593 1971 Unknown [id number] 2.16.840.1.610164.3.579.2.593 1971 Unknown [id number] 2.16.840.1.284998.3.579.2.593 1971 Unknown [id number] 2.16.840.1.042813.3.579.2.593 1971 Unknown [id number] 2.16.840.1.159444.3.579.2.593 1971 Unknown [id number] 2.16.840.1.440879.3.579.2.125 9 1971 Unknown [id number] 2.16.840.1.210048.3.579.2.125 9 1971 Unknown [id number] 2.16.840.1.001243.3.579.2.125 9 1971 Unknown [id number] 2.16.840.1.218681.3.579.2.125 9 1971 Unknown [id number] 2.16.840.1.471258.3.579.2.125 9 1971 Unknown [id number] 2.16.840.1.418954.3.579.2.125 9 1971 Unknown [id number] 2.16.840.1.459541.3.579.2.125 9 1971 Unknown [id number] 2.16.840.1.725195.3.579.2.125 9 1971 Unknown [id number] 2.16.840.1.889730.3.579.2.125 9 1971 Unknown [id number] 2.16.840.1.172510.3.579.2.125 9 1971 Unknown [id number] 2.16.840.1.297775.3.579.2.125 9 1971 Unknown [id number] 2.16.840.1.701582.3.579.2.125 9 1971 Unknown [id number] 2.16.840.1.810454.3.579.2.125 9 1971 Unknown [id number] 2.16.840.1.594160.3.579.2.125 9 1971 Unknown [id number] 2.16.840.1.273824.3.579.2.125 9 1971 Unknown [id number] 2.16.840.1.104775.3.579.2.594 1971 Unknown [id number] 2.16.840.1.485503.3.579.2.594 1971 Unknown [id number] 2.16.840.1.182792.3.579.2.594 1971 Unknown [id number] 2.16.840.1.292856.3.579.2.594 1971 Unknown [id number] 2.16.840.1.197103.3.579.2.594 1971 Unknown [id number] 2.16.840.1.827648.3.579.2.594 1971 Unknown [id number] 2.16.840.1.704119.3.579.2.594 1971 Unknown [id number] 2.16.840.1.445084.3.579.2.594 1971 Unknown [id number] 2.16.840.1.551486.3.579.2.594 1971 Unknown [id number] 2.16.840.1.347160.3.579.2.594 1971 Unknown [id number] 2.16.840.1.602218.3.579.2.594 1971 Unknown [id number] 2.16.840.1.163114.3.579.2.727 1971 Unknown [id number] 2.16.840.1.470141.3.579.2.727 1959 Medicaid [id number] 1959 Medicare [id number] Social History Date Type Detail Facility Start: 07-19-2018 End: 10-19-2018 Tobacco smoking status NHIS Former smoker [facility] Start: 07-19-1988 End: 05-14-2018 History of tobacco use Current smoker [facility] Work Phone: Start: 07-19-1988 End: 05-14-2018 History of tobacco use Cigarette Smoker [facility] Work Phone: Start: 10-19-2018 End: 09-05-2024 Cigarettes smoked current (pack per day) - Reported [facility] End: 07-19-1994 History of tobacco use Chews Tobacco [facility] Work Phone: Start: 1971 Sex Assigned At Not on file [facility] Work Phone: Start: 11-03-2018 Alcohol intake Current non-drinker of alcohol (finding) [place] Start: 06-22-2018 Alcohol Comment Hx of alcoholism [place] Start: 11-03-2018 End: 09-05-2024 Alcohol intake No [facility] Start: 07-19-2018 Tobacco use and exposure Former user [facility] Start: 09-06-2020 End: 09-05-2024 Alcohol intake Ex-drinker (finding) [facility] Start: 07-19-2018 Alcohol Comment stopped 05/14/2018 [facility] Start: 05-05-2022 End: 01-16-2023 Exposure to SARS-CoV-2 (event) Not sure [facility] Start: 07-07-2018 Gender identity Identifies as male gender (finding) [facility] Start: 01-16-2022 Sexual orientation Heterosexual (finding) [facility] Start: 11-03-2023 Tobacco use and exposure [...] Never smoked tobacco (finding) [facility] Medical Equipment Procedure Code Equipment Code Equipment Original Text Equipment Identifier Dates [id number] Start: 05-23-2020 [id number] Start: 04-12-2020 [id number], [id number] FDA Start: 05-17-2022 Comment on above: Description: Implant time-out completed by intra-procedural staff including this RN, screening technician, and performing physician. The following was [...] 09-08-2024 Functional Status N/A [facility] Clinical Notes 06-14-2021 to 09-08-2024 Starla Edwards - 09/05/2024 3:24 PM Milagros Edwards - 06/23/2024 8:51 AM Hannah Max DO - 06/17/2024 10:00 AM Jasper Garnica RN - 06/17/2024 10:00 AM EDTPatient [...] urethra. Follow these instructions at home: Take drgc-qsw-akkddkd and prescription medicines only as told by [...] provider. Document Revised: 06/04/2022 Document Reviewed: 06/04/2022 My True [employer] Patient Education 2023 [employer]. Follow Up Care 08/25/2024 09:38:26 With:Jaguar CASTILLO, Clementina Mejias, URL Address: When:3 months Comments:med increase [facility] 09-08-2024 Note Urology Office/Clini c [...] Skin: No rashes or suspicious lesions Assessment/Plan PHOTOGRAPHY COLORIST referred by Zuly Bruno NP for weak [...] E&M of New Patient Moderate 45-59 Min 19654 2. Screening PSA (prostate specific antigen) (Z12.5: Encounter for screening for malignant neoplasm of prostate) No PSA records on file -Will discuss with patient at his follow up Ordered: E&M of New Patient Moderate 45-59 Min 79232 3. History of kidney transplant (Z94.0: Kidney transplant status) 08/29/24 - BUN 18, Cre 1.3, GFR 58 Pt had liver and kidney transplant in 2019 and follows yearly with [facility]. Ordered: E&M of New Patient Moderate 45-59 Min 43766 Orders: tamsulosin, 0.4 mg = 1 cap(s), Oral, BID, X 30 day(s), # 60 cap(s), Refills(s) 11, Pharmacy: [id number], 170, cm, 09/08/24 14:00:00 EDT, Height/Length Dosing, 90, kg, 09/08/24 14:00:00 EDT, Weight Dosing 10710 Measure Post Void residual urine and/or bladder capacity by US- non-imaging Urnls Dip Stick Auto w/o Microscopy POC 58795 Follow-up With When Contact Information Clementina James, [...] Urine Dipstick: Negative (more content not included)... [facility] Comment on above: Result Comment: Elec tronically [...] Follow these instructions at home: ? Take wcwr-uid-xjviqgw and prescription medicines only as told by [...] develop side effec (more content not included)... [facility] 09-05-2024 History of Present illness Narrative [facility] RX OUTREACH ADVANCED: Call Information: Date and Time of Contact: 09/05/2024 3:24 PM Method of Contact: By Phone Contact Type: Prescriptions Contactor: Patient Contactee: [facility] Shipping/Pickup: Medicare B Refill?: No Medication Name: Mycophenolate, prograf Delivery Method: Ship Delivery Location: Home Signature Required: No Receive/Pickup Date: 09/06/2024 Shipping Address: [address] [place] [address] 179 Contact Info: Specialty ([place]) [phone] [facility] [phone] [facility] [phone] [place] [phone] Bedside Delivery ([facility]) [phone] documented in this encounter [facility] 06-23-2024 History of Present illness Narrative [facility] RX OUTREACH ADVANCED: Call Information: Date and Time of Contact: 06/23/2024 8:52 AM Method of Contact: By Phone Contact Type: Prescriptions Contactor: [facility] Contactee: Patient Shipping/Pickup: Medicare B Refill?: No Medication Name: Prograf 0.2mg Delivery Method: Ship Delivery Location: Home Signature Required: No Receive/Pickup Date: 06/29/2024 Shipping Address: [address] [place] [address] 179 Contact Info: Specialty ([place]) [phone] [facility] [phone] [facility] [phone] [place] [phone] Bedside Delivery ([facility]) [phone] documented in this encounter [facility] 06-17-2024 History of Present illness Narrative -Referring Provider for today's consult: Self, Self -Primary Care Provider: Zuly Bruno History of Present Illness George Styles is a 54 y.o. male who presents to the [facility] Transplant Hepatology Clinic today for follow-up [...] Left; Surgeon: Jyoti Bryant MD, PhD; Location: [facility] MAIN OR PLACEMENT NEPHROSTOMY CATHETER PERCUTANEOUS W/ IMAGE GUIDANCE 05/17/2022 Surgeon: Enzo Heart DO; Location: [facility] INTERVENTIONAL RADIOLOGY (VIR) LIVER TRANSPLANT, ORTHOTOPIC N/A 04/12/2020 Laterality: N/A; Surgeon: LU Palma; Location: [facility] SAME DAY SURGERY MAIN OR KIDNEY TRANSPLANT W/O [place] NEPHRECTOMY N/A 04/12/2020 Laterality: N/A; Surgeon: LU Palma; Location: [facility] SAME DAY SURGERY MAIN [...] 0.2 06/13/2024 Explant Pathology Pathologic Diagnosis A. [place] liver, orthotopic liver transplant resection (1458 gram): [...] up in 1 year. Daisha Max DO Nutrition Services Aide Gastroenterology, Hepatology and Nutrition [facility] Pager: [phone] Images from the original note were not included. 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 Print Cutter: Anayeli Burt Date of Liver Transplant: 04/13/2020 (Kidney), 04/13/2020 (Liver) 4 years, 2 months post Liver/Kidney Transplant Primary Disease: Hypertensive Nephrosclerosis Transplant Customer Service Analyst: Erma Roe/ Daisha Max Primary Care physician: [...] LAB AND PHARMACY: None Specified [id number] [place] [address] - [address] [facility] [address] [facility] [address] [facility] [address] [facility] [address] [id number] [place] [address] [address] [facility] [address] [facility] [address] [facility] [address], [place] [address] [facility] [address] ROS and SCREEN: Chest Pain: negative Cough: [...] year: no Do you follow with a Refinery Operator Reforming Unit? yes Do you have a Primary Care [...] PHYSICIAN: documented in this encounter [facility] 06-17-2024 Instructions Ashlee Fair RN - 06/17/2024 10:00 AM EDT - No medication changes from a liver standpoint - A MRI Abdomen has been ordered today. Please call central scheduling at [phone] to schedule or take paper copy to your local hospital - Return to clinic 06/16/2025 TRANSPLANT HEPATOLOGY 3, [facility] as scheduled documented in this encounter [facility] 06-17-2024 History of Present illness Narrative Images from the original note were not included. George Styles is a 54 y.o. 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 No longer follows with a local independent living instructor. History of Present Illness: Since George [...] and lab results. Rebeca Gutierrez MSN, RN, DYNAMOMETER REPAIRER-BC, CCTN Certified Nurse Practitioner [facility] [address] [facility] [address] documented in this encounter [facility] 06-17-2024 Instructions JEANNA Hess - 06/17/2024 9:30 AM EDT Tacrolimus - increase to 0.2 mg packet three time per day; goal 3 to 5 ng/dL ; when the itraconazole stops 09/03/2024, reduce to 0.5 mg twice daily. Once your tacrolimus level is 3-5 ng/dL, you may reduce labs to every other week. documented in this encounter [facility] 05-26-2024 History of Present illness Narrative [facility] RX OUTREACH ADVANCED: Call Information: Date and Time of Contact: 05/26/2024 4:35 PM Method of Contact: By Phone Contact Type: Prescriptions Contactor: [facility] OP Contactee: Patient Contact Outcome: Left message and Follow-up Contact Info: Specialty (Yanci) [phone] Jakob [phone] [facility] [phone] David [phone] Bedside Delivery ([facility]) [phone] [facility] RX OUTREACH ADVANCED: Call Information: Date and Time of Contact: 05/30/2024 4:52 PM Method of Contact: By Phone Contact Type: Prescriptions Contactor: Patient Contactee: [facility] OP Shipping/Pickup: Medicare B Refill?: No Medication Name: Myco sod 360mg, Prograf 0.2mg Delivery Method: Ship Delivery Location: Home Signature Required: No Receive/Pickup Date: 06/06/2024 Shipping Address: [address] [place] [address] Contact Info: Specialty (Yanci) [phone] Jakob Hendrix [phone] [facility] [phone] David [phone] Bedside Delivery ([facility]) [phone] documented in this encounter [facility] 05-13-2024 Note [place] Cardiology - [facility] Subjective George Styles is a 54 [...] , Rfl: t (more content not included)... [facility] 03-24-2024 History of Present illness Narrative [facility] RX OUTREACH ADVANCED: Call Information: Date and Time of Contact: 03/24/2024 4:14 PM Method of Contact: By Phone Contact Type: Prescriptions Contactor: [facility] Contactee: Patient Contact Outcome: Left message Shipping/Pickup: Medication Name: Prograf 0.2mg pack Contact Info: Specialty (Monroe) [phone] [facility] [phone] [facility] [phone] David [phone] Bedside Delivery ([facility]) [phone] [facility] RX OUTREACH ADVANCED: Call Information: Date and Time of Contact: 03/28/2024 3:58 PM Method of Contact: By Phone Contact Type: Prescriptions Contactor: [facility] Contactee: Patient Contact Outcome: Left message and Call back later Shipping/Pickup: Medication Name: Mycophenolate, prograf Contact Info: Specialty (Monroe) [phone] [facility] [phone] [facility] [phone] David [phone] Bedside Delivery ([facility]) [phone] [facility] RX OUTREACH ADVANCED: Call Information: Method of Contact: By Phone Contact Type: Prescriptions Contactor: Patient Contactee: [facility] Shipping/Pickup: Medicare B Refill?: No Medication Name: Mycopheolate 360mg and Prograf Delivery Method: Ship Delivery Location: Home Signature Required: No Receive/Pickup Date: 04/04/2024 Shipping Address: [address] [place] [address] [address] Contact Info: Specialty (Yanci) [phone] [facility] [phone] [facility] [phone] David [phone] Bedside Delivery ([facility]) [phone] documented in this encounter [facility] 03-24-2024 History of Present illness Narrative [facility] RX OUTREACH ADVANCED: Call Information: Date and Time of Contact: 03/24/2024 4:14 PM Method of Contact: By Phone Contact Type: Prescriptions Contactor: [facility] Contactee: Patient Contact Outcome: Left message Shipping/Pickup: Medication Name: Prograf 0.2mg pack Contact Info: Specialty (Yanci) [phone] Jakob [phone] [facility] [phone] David [phone] Bedside Delivery ([facility]) [phone] [facility] RX OUTREACH ADVANCED: Call Information: Date and Time of Contact: 03/28/2024 3:58 PM Method of Contact: By Phone Contact Type: Prescriptions Contactor: [facility] Contactee: Patient Contact Outcome: Left message and Call back later Shipping/Pickup: Medication Name: Mycophenolate, prograf Contact Info: Specialty (Mon[place]) [phone] Jakob [phone] [facility] [phone] David [phone] Bedside Delivery ([facility]) [phone] [facility] RX OUTREACH ADVANCED: Call Information: Method of Contact: By Phone Contact Type: Prescriptions Contactor: Patient Contactee: [facility] OP Shipping/Pickup: Medicare B Refill?: No Medication Name: Mycopheolate 360mg and Prograf Delivery Method: Ship Delivery Location: Home Signature Required: No Receive/Pickup Date: 04/04/2024 Shipping Address: [address] [place] [address] [address] Contact Info: Specialty (Monroe) [phone] [facility] [phone] [facility] [phone] David [phone] Bedside Delivery ([facility]) [phone] [facility] RX OUTREACH ADVANCED: Pre-Verification/Specialty Assessment/Disease [...] Within normal limits Contact Info: Specialty (Yanci) [phone] [facility] [phone] [facility] [phone] David [phone] Bedside Delivery ([facility]) [phone] [facility] History of Present illness Narrative [...] up del of broth Contact Info: Specialty (Monroe) [phone] [facility] [phone] [facility] [phone] David [phone] Bedside Delivery ([facility]) [phone] [facility] RX OUTREACH ADVANCED: Call Information: Date and Time of Contact: 03/02/2024 3:49 PM Method of Contact: By Phone Contact Type: Prescriptions Contactor: [facility] Contactee: Patient Contact Outcome: Left message and Follow-up Shipping/Pickup: Medication Name: Myco 360mg and Prograf 0.2mg Contact Info: Specialty (Yanci) [phone] [facility] [phone] [facility] [phone] David [phone] Bedside Delivery ([facility]) [phone] [facility] RX OUTREACH ADVANCED: Call Information: Date and Time of Contact: 03/02/2024 4:08 PM Method of Contact: By Phone Contact Type: Prescriptions Contactor: [facility] OP Contactee: Patient Shipping/Pickup: Medicare B Refill?: No Medication Name: Myco 360 / prograf 0.2 Delivery Method: Ship Delivery Location: Home Signature Required: No Receive/Pickup Date: 03/03/2024 Shipping Address: [address] [place] [address] [address] Contact Info: Specialty (Monroe) [phone] [facility] [phone] [facility] [phone] David [phone] Bedside Delivery ([facility]) [phone] documented in this encounter [facility] 02-26-2024 History of Present illness Narrative [...] the [facility] on 02/26/2024 for initial evaluation of heart [...] Left; Surgeon: Jyoti Bryant MD, PhD; Location: [facility] MAIN OR PLACEMENT NEPHROSTOMY CATHETER PERCUTANEOUS W/ IMAGE GUIDANCE 05/17/2022 Surgeon: Enzo Heart DO; Location: [facility] INTERVENTIONAL RADIOLOGY (VIR) LIVER TRANSPLANT, ORTHOTOPIC N/A 04/12/2020 Laterality: N/A; Surgeon: LU Palma; Location: [facility] SAME DAY SURGERY MAIN OR KIDNEY TRANSPLANT W/O [facility] [place] NEPHRECTOMY N/A 04/12/2020 Laterality: N/A; Surgeon: LU Palma; Location: [facility] SAME DAY SURGERY MAIN [...] qd Antithrombotic: no Statin: no ICD: NA LINEN ROOM HOUSEPERSON: NA CV Test results: ECHOCARDIOGRAM 01/18/2024 (Final) Interpretation Summary Left Ventricle: Chamber size is normal. Increased wall thickness. Concentric hypertrophy. Normal global systolic function. Regional wall motion is normal. Ejection fraction is normal (55 - 60%). Right Ventricle: Chamber size is normal. Systolic function is low normal. No hemodynamically significnat valve disease. Moderate pericardial effusion. There is no evidence of tamponade. [facility] (01/20/24) Hemodynamic Summary: Baseline Hemodynamics Systemic [...] will be BP control. Candie Almaguer M.D. program management manager Advanced Heart Failure Program Division of Cardiovascular Medicine [facility] [email or web address] ph [phone] fax [phone] documented in this encounter [facility] 02-26-2024 Instructions Marsha Mckeon RN - 02/26/2024 9:30 AM EDT The following instructions were given today: Labs today Follow up with Dr. Almaguer as needed. Your after visit summary (AVS) is viewable in [facility] My Chart. Call RN if you have cardiac questions/concerns M-F 8 to 4:30 ; office # [phone], option 6, then option 2. Guidelines for home management: 1. Continue to monitor weight first thing each morning. 2. Report to the CHF CLINIC ([phone]) any significant weight change. Remember that weight [...] to have labs/tests run outside of the [facility] and you do not hear from us 1-2 days after they are performed, you must call us to ensure we received the results. Office fax # [phone]. No news does not necessarily mean that your tests are normal, it could mean we did not get the results. For questions/updates: please provide your name with spelling, date of and question or update All calls are prioritized and responses researched, if possible, prior to calls being returned. Call Scheduling for any appointment/procedure verification or changes [phone], option 7 or [facility] Heart Schedulers at [phone], option 1. documented in this encounter [facility] 01-23-2024 Nurse Note Jakob wrap & [...] home on home oxygen supply. [facility] 01-23-2024 Miscellaneous Notes Jakob wrap & [...] verbalization of pain descriptors George Tray Styles ([id number]) PRE OPERATIVE DIAGNOSIS High output congestive heart failure [I50.83] POST OPERATIVE DIAGNOSIS Post-Op Diagnosis Codes: * High output congestive heart failure [I50.83] PROCEDURE PERFORMED Procedure(s) (LRB): LIGATION ANGIOACCESS AVF (Left) Resection of large aneurysmic vein PRIMARY CLOSURE Yes INTRAOPERATIVE FINDINGS No significant abnormalities SURGEON Surgeons and Role: * Jyoti Bryant MD, PhD - Primary ANESTHESIOLOGIST Anesthesiologist: Celena Tiwari MD; Kehinde Gutierrez MD DIRECTOR VOICE: David Jasso APRN-DIRECTOR VOICE [employer] Hazmat Tanker Driver Assisting: Mini Khan MD SURGICAL STAFF Predictive Maintenance Technician: Zoila Lawrence RN Relief Predictive Maintenance Technician: Marimar Saravia RN Relief Scrub: Briseyda [...] Axillary block. SURGEON(S): Jyoti Bryant MD, PHD INSURANCE ACTUARY: Mynor Fall MD ESTIMATED BLOOD LOSS: Minimal. [...] Jyoti Bryant MD, PHD ATTENDING AR/MedFlorencio JOB: [id number] DOC: [id number] Patient has been asleep this shift. He [...] overnight coverage, Jasper Gastelum MD, via pager #[phone] Pt- George Styles. Smith 1082. TM1. Was wondering if he can have his Melatonin order increased to 6mg. Per pt, he usually takes 8mg at home. -SAMI Duffy #[phone] Tati Charles RN Internal Medicine Daily Progress Note Patient: George Styles, 1970, [id number] Physician: Arelis Mera MD, PGY3, Pager #[phone], TM1 service Assessment/Plan: George Styles is a [...] home amlodipine 5mg CAD: non-obstructive CAD on [facility] 2018. - continue home aspirin [...] Mera MD Mr. Styles was admitted to [address] [place] [address]. On admission to 0, from outside facility a dual RN initial assessment of skin condition was performed by Izzy Gutierrez RN and Leroy Singleton RN. Skin Assessment: Skin within defined limits:Yes Jose Score: 20 Wound Vision Product Sales Engineer images obtained: No LDA Added: No [...] station when available. documented in this encounter [facility] 01-23-2024 Nurse Note Home Oxygen Qualification [...] of oxygen is also required.) [facility] 01-23-2024 History of Present illness Narrative [...] mg Oral Daily Kelvin Pacheco MD, MBBS communications professor Transplant nephrology Surgery Post-Op Check Note [...] monitor Leonel Harris DO General Surgery Pager [phone] CM went to bedside to talk with patient. Patient states he has home oxygen through [employer]. He uses 2.5 LNC around the clock. Patient states his brother will bring a tank for discharge. Anticipate patient will discharge tomorrow AM. Brother updated. Girish Oro RN, BSN Clinical Information Systems Planner Please note that I am a float registered nurse hh case manager and may not cover the same service every day. Please call the main Case Management office at [phone] for up-to-date coverage. Verified patients identity using [...] Daily Progress Note Patient: George Styles, 1970, [id number] Physician: Yury Ozuna MD, PGY1, Pager #[phone], TM1 service Assessment/Plan: George Styles is a [...] by transplant surgery on 01/22 (NPO at wi, updated type & screen) S/p Liver-Kidney Transplant [...] home amlodipine 5mg CAD: non-obstructive CAD on [facility] 2018. - continue home aspirin [...] with the Nutrition plan outlined in the Cnc Manager s note. DVT prophylaxis with lovenox [...] in resident note. Kelvin Pacheco MD, MBBS communications professor Transplant nephrology Patient seen and examined [...] Oral BID AC Kelvin Pacheco MD, LU communications professor Transplant nephrology Images from the original note were not included. Internal Medicine Daily Progress Note Patient: George Styles, 1970, [id number] Physician: Yury Ozuna MD, PGY1, Pager #[phone], HR7 service Assessment/Plan: George Styles is a 53 [...] with the Nutrition plan outlined in the Cnc Manager s note. DVT prophylaxis with lovenox [...] further questions. Name: Heidy Chatman Phone #: [phone] Date/Time: 01/19/2024 12:08 PM Time Spent: 15 minutes Associated attestation - Fidelina Alarcon RPH - 01/19/2024 12:41 PM EST Department of Pharmacy Admission Medication Reconciliation Note Patient: George Styles Room/Bed: 1082/A I have reviewed the home medication list with the Chlorine Operator. The home medication list status is: complete. All changes to the home medication list have been updated in [facility]IS. Updated TEXTILE WORKER Med List: Prior to Admission Medications [...] any further questions. Name: Fidelina Angel Alarcon [facility] Phone #: [phone] Date/Time: 01/19/2024 12:41 PM Internal Medicine Daily Progress Note Patient: George Feliz Jensen, 1970, [id number] Physician: Yury Ozuna MD, PGY1, Pager #[phone], ED1 service Assessment/Plan: Acute Hypoxic Respiratory Insufficiency GARCIA, [...] home amlodipine 5mg CAD: non-obstructive CAD on [facility] 2018. - continue home aspirin [...] with the Nutrition plan outlined in the Cnc Manager s note. DVT prophylaxis with lovenox [...] mg Oral Daily Kelvin Pacheco MD, MBBS communications professor Transplant nephrology Internal Medicine Daily Progress Note Patient: George Styles, 1970, [id number] Physician: Yury Ozuna MD, PGY1, Pager #[phone], TM1 service Assessment/Plan: Updates: - continued diuresis [...] home amlodipine 5mg CAD: non-obstructive CAD on [facility] 2018. - continue home aspirin [...] with the Nutrition plan outlined in the Cnc Manager s note. DVT prophylaxis with lovenox [...] in resident note. Kelvin Pacheco MD, MBBS communications professor Transplant nephrology Pt known to health plan manager from previous admissions. Provided emotional and spiritual support. Patient shared about: family support, medical course Scagliola Mechanic provided: - Supportive presence - Active listening - Validation of feelings/emotions Patient encouraged to request a health plan manager as needed. Chaplains are available in-house 24 hours a day and 7 days a week. For urgent matters in [facility], please page [phone]. If the request is not urgent, please enter a consult. Consults are responded to within 24 hours. Senior Staff Scagliola Mechanic Angie Singh Mdiv, [facility] [place] [phone] [email or web address] On-call TYLOR: call center professional David: 22/06 Pager ,[facility], and Brock Maciel Pager [facility] 01/18/24 1342 Clinical Encounter Type Visited With Patient Visit Type Introduction Pastoral Time Spent 15 min Referral Other (See Comment) (rounding) Spiritual Assessment Emotional Observation Coping well;Anxiety Hope Observation Specific hope focus Support Observation By Family Interventions Provided Active listening;Supportive presence Facilitated Verbalization of feelings;Identifying support system;Identifying Sources of spiritual well-being Explored Expectations;Treatment decisions Aeronautics Commission Director Education Aeronautics Commission Director Service Available Yes Educated Patient Outcomes Patient [...] interaction. Name: Fidelina Alarcon RPH Phone #: [phone] Date/Time: 01/18/2024 9:56 AM Discharge Planning Patient [...] Yes Name and Contact information: Gian Styles ([phone]) Would you like to add additional adult [...] oxygen?: Yes Oxygen Provider and Contact : [employer] Liter-Flow?: 20/01- Order for oxygen use?: unknown [...] patient on Anticoagulation? : No [id number] [place] [address] - [address] [facility] [address] [facility] [id number] Lens Inserter Does the patient or customer service representative teacher express financial concerns? : No Employed?: Disabled [...] Plan 1. Identified self and role as Information Systems Planner. 2. Confirmed and updated demographics and treatment team. 3. Information Systems Planner will continue to follow with medical team for any other additional discharge needs. Kasandra DON RN [facility] [phone] *Please note I am float and work Thursday and Thursday every other week. Please call [phone] for assist in my absence. Internal Medicine Daily Progress Note Patient: George Styles, 1970, [id number] Physician: Yury Ozuna MD, PGY1, Pager #[phone], ZK8 service Assessment/Plan: Updates: - continue diuresis with [...] home amlodipine 5mg CAD: non-obstructive CAD on [facility] 2018. - continue home aspirin [...] ordered 2D echo. Kevin Prince MD, SERA Nutrition Services Aide of Clinical Medicine [facility] documented in this encounter [facility] 01-23-2024 Plan of care note Patient [...] Symptoms (Acute Pain): verbalization of pain descriptors [facility] 01-22-2024 Hospital Discharge instructions Arelis Mera [...] your doctor for further instructions. Please call [phone], Option 1 or [phone] to schedule your appointment with the Heart Failure Clinic. Arelis Mera MD - 01/22/2024 3:08 PM EST You can change your dressing 48 hours from the procedure The following attachments cannot be sent through Care Everywhere.Heart Failure: Avoiding Triggers (Mauritian)Heart Failure: Limiting Sodium (Mauritian)Pain and Pain Control ([facility]) (Mauritian)documented in this encounter 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] POST OPERATIVE DIAGNOSIS Post-Op Diagnosis Codes: * High output congestive heart failure [I50.83] PROCEDURE PERFORMED Procedure(s) (LRB): LIGATION ANGIOACCESS AVF (Left) Resection of large aneurysmic vein PRIMARY CLOSURE Yes INTRAOPERATIVE FINDINGS No significant abnormalities SURGEON Surgeons and Role: * Jyoti Bryant MD, PhD - Primary ANESTHESIOLOGIST Anesthesiologist: Celena Tiwari MD; Kehinde Gutierrez MD DIRECTOR VOICE: David Jasso APRN-DIRECTOR VOICE [employer] Haz[employer] Tanker Driver Assisting: Mini Khan MD SURGICAL STAFF Predictive Maintenance Technician: Zoila Lawrence RN Relief Predictive Maintenance Technician: Marimar Saravia RN Relief Scrub: Briseyda Self Scrub Person: Cinda Mai RN Resident Assisting: Leonel Harris DO Fellow: Miki Mcgowan MD, MBBS COMPLICATIONS None ESTIMATED BLOOD LOSS Minimal SPECIMENS No specimen sent * No specimens in log * Jyoti Bryant MD, PhD January 22, 2024 1:34 PM [facility] Work Phone: 01-22-2024 Nurse Note Arrived [...] Nerve block left arm, elevated. [facility] 01-22-2024 Surgery Postoperative evaluation and management [...] Axillary block. SURGEON(S): Jyoti Bryant MD, PHD INSURANCE ACTUARY: Mynor Fall MD ESTIMATED BLOOD LOSS: Minimal. [...] Jyoti Bryant MD, PHD ATTENDING SHANNON/Constanza JOB: [id number] DOC: [id number] [facility] 01-22-2024 Plan of care note Patient [...] Of Care Reviewed With: patient [facility] 01-20-2024 Consult note Associated Order (s): IP CONSULT TO SURGERY - TRANSPLANT (RENAL) Images from the original note were not included. TRANSPLANT SURGERY CONSULT NOTE: Consult: 01/20/2024, 4:03 PM Ballet Professor: Starla Morris MD Reason for Consult: Requesting Dr Carson Bryant for AVF revision/closure given new onset high output heart failure George Styles is a 53 y.o. male CURRENT HOSPITALIZATION LOS: Admit Date: 01/16/2024 [facility] LOS: 4 days George Styles is [...] DAY SURGERY MAIN OR KIDNEY TRANSPLANT W/O [place] NEPHRECTOMY N/A 04/12/2020 Laterality: N/A; Surgeon: LU [...] Studies: Labs-CBC: WBC/Hgb/Hct/Plts: 3.79/12.5/38.9/166 (01/20 611) Labs-Chem 7([facility]): Bun/Creat/Cl/CO2/Glucose: 15/1.12/105/28/88 (01/20 611) Na/K+/Phos/Mg/Ca: [...] seen and staffed with Dr. Mcgowan fellow inspector structural bonding Thank you, Starla Morris MD Associated attestation - Jyoti Bryant MD, PhD - 01/22/2024 10:54 AM EST Beata Bryant MD, PhD, have independently seen and examined the patient, reviewed the labs, discussed the patient with the fellow/resident and agree with the note. [facility] Work Phone: 01-20-2024 Consult note Associated Order (s): IP CONSULT TO SURGERY - TRANSPLANT (RENAL) Images from the original note were not included. TRANSPLANT SURGERY CONSULT NOTE: Consult: 01/20/2024, 4:03 PM Ballet Professor: Starla Morris MD Reason for Consult: Requesting Dr Carson Bryant for AVF revision/closure given new onset high output heart failure George Styles is a 53 y.o. male CURRENT HOSPITALIZATION LOS: Admit Date: 01/16/2024 [facility] LOS: 4 days George Styles is [...] GUIDANCE 05/17/2022 Surgeon: Enzo Heart DO; Location: [facility] INTERVENTIONAL RADIOLOGY (VIR) LIVER TRANSPLANT, ORTHOTOPIC N/A 04/12/2020 Laterality: N/A; Surgeon: LU Palma; Location: [facility] SAME DAY SURGERY MAIN OR KIDNEY TRANSPLANT W/O [place] NEPHRECTOMY N/A 04/12/2020 Laterality: N/A; Surgeon: LU [...] Studies: Labs-CBC: WBC/Hgb/Hct/Plts: 3.79/12.5/38.9/166 (01/20 611) Labs-Chem 7([facility]): Bun/Creat/Cl/CO2/Glucose: 15/1.12/105/28/88 (01/20 611) Na/K+/Phos/Mg/Ca: [...] seen and staffed with Dr. Mcgowan fellow inspector structural bonding Thank you, Starla Morris MD Associated attestation [...] GUIDANCE 05/17/2022 Surgeon: Enzo Heart DO; Location: [facility] INTERVENTIONAL RADIOLOGY (VIR) LIVER TRANSPLANT, ORTHOTOPIC N/A 04/12/2020 Laterality: N/A; Surgeon: LU Palma; Location: [facility] SAME DAY SURGERY MAIN OR KIDNEY TRANSPLANT W/O [place] NEPHRECTOMY N/A 04/12/2020 Laterality: N/A; Surgeon: LU Palma; Location: [facility] SAME DAY SURGERY MAIN [...] (order for outpatient) Please SecureChat or Call ([phone]) for any questions. Await attending attestation for final recommendations. Hank Noel MD Division of Gastroenterology, Hepatology, and Nutrition Clinical Fellow, PGY-5 Pager: [phone] For urgent/stat calls or consults 5pm to 7am, please page the on-call GI fellow on QGenda. [facility]--> Internal Medicine--> Gastroenterology, Hepatology, & Nutrition--> 1st Call Janae Hatfield For urgent/stat calls or consults 7am to 5pm during the weekend, please page the on-call GI fellow on QGenda. [facility]--> Internal Medicine--> Gastroenterology, Hepatology, & Nutrition--> All Hep & East Wknd Cons Fel Day For follow up questions regarding this patient 7am to 5pm during the weekday, contact the Hepatology consults fellow or CARLOS A on QGenda. [facility]--> Internal Medicine--> Gastroenterology, Hepatology, & Nutrition--> [...] MD, MSc documented in this encounter [facility] 01-19-2024 Nurse Note 01/19/24 0900 Vitals [...] when talking/moving. Paulette Cordon RN [facility] 01-19-2024 Nurse Note Paged overnight coverage, Jasper Gastelum MD, via pager #[phone] Pt- Mark. Sarah Styles [phone]. TM1. Was wondering if he can have his Melatonin order increased to 6mg. Per pt, he usually takes 8mg at home. -SAMI Duffy #[phone] Tati Charles RN [facility] 01-18-2024 Consult note Associated Order (s): IP CONSULT TO HEPATOBILIARY [facility] Main Hepatology Consult WebExchange --> IM Consult Serv [facility] [address] --> OS Main Hepatology consult service Fellow [...] GUIDANCE 05/17/2022 Surgeon: Enzo Heart DO; Location: [facility] INTERVENTIONAL RADIOLOGY (VIR) LIVER TRANSPLANT, ORTHOTOPIC N/A 04/12/2020 Laterality: N/A; Surgeon: LU Palma; Location: [facility] SAME DAY SURGERY MAIN OR KIDNEY TRANSPLANT W/O [place] NEPHRECTOMY N/A 04/12/2020 Laterality: N/A; Surgeon: LU Palma; Location: [facility] SAME DAY SURGERY MAIN [...] (order for outpatient) Please SecureChat or Call ([phone]) for any questions. Await attending attestation for final recommendations. Hank Noel MD Division of Gastroenterology, Hepatology, and Nutrition Clinical Fellow, PGY-5 Pager: [phone] For urgent/stat calls or consults 5pm to 7am, please page the on-call GI fellow on QGenda. [facility]--> Internal Medicine--> Gastroenterology, Hepatology, & Nutrition--> 1st Call Janae Hatfield For urgent/stat calls or consults 7am to 5pm during the weekend, please page the on-call GI fellow on QGenda. [facility]--> Internal Medicine--> Gastroenterology, Hepatology, & Nutrition--> All [facility] & East Wknd Cons Fel Day For follow up questions regarding this patient 7am to 5pm during the weekday, contact the Hepatology consults fellow or CARLOS A on QGenda. [facility]--> Internal Medicine--> Gastroenterology, Hepatology, & Nutrition--> [...] outpatient) Michael Estrada MD, MSc [facility] Work Phone: 01-16-2024 Plan of care note Internal Medicine Daily Progress Note Patient: George Styles, 1970, [id number] Physician: Arelis Mera MD, PGY3, Pager #[phone], GL0 service Assessment/Plan: George Styles is a 53 [...] home amlodipine 5mg CAD: non-obstructive CAD on [facility] 2018. - continue home aspirin [...] rounds. Signed, Arelis Mera MD [facility] 01-16-2024 Nurse Note Mr. Styles was admitted to [address] [place] [address]. On admission to 0, from outside facility a dual RN initial assessment of skin condition was performed by Izzy Gutierrez RN and Leroy Singleton RN. Skin Assessment: Skin within defined limits:Yes Jose Score: 20 Wound Vision Product Sales Engineer images obtained: No LDA Added: No [...] to nurses station when available. [facility] 01-16-2024 History and physical note Images from the original note were not included. Internal Medicine Admission History & Physical Patient: George Styles, 1970, [id number] Physician: Timothy Joseph MD, PGY1, Pager #[phone], TM 1 service Date of face to [...] GUIDANCE 05/17/2022 Surgeon: Enzo Heart DO; Location: [facility] INTERVENTIONAL RADIOLOGY (VIR) LIVER TRANSPLANT, ORTHOTOPIC N/A 04/12/2020 Laterality: N/A; Surgeon: LU Palma; Location: [facility] SAME DAY SURGERY MAIN OR KIDNEY TRANSPLANT W/O [place] NEPHRECTOMY N/A 04/12/2020 Laterality: N/A; Surgeon: LU Palma; Location: [facility] SAME DAY SURGERY MAIN [...] itraconazole Fax results to: Dr. White - [phone] Transplant Neph - [phone] Gabapentin 400 MG capsule Sig: Take 1 [...] erythema: Skin: No jaundice or rash Neuro: agricultural commodities inspector 3-7, 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 Strength grossly [...] home amlodipine 5mg CAD: non-obstructive CAD on [facility] 2018. - continue home aspirin [...] Pierson, Luisa Steven, Renee Rivera, Daisha Max Print Cutter: José Miguel Garnica All Txt: 04/13/2020 (Kidney), [...] results found for: CYCLOSPORIN , CYCLOSPORIN2 , [id number] , CYCLORAND No results found for: SIROLIMUS [...] request in chart. Kevin Prince MD Pager [phone] [facility] 01-16-2024 History and physical note Images from the original note were not included. Internal Medicine Admission History & Physical Patient: George Styles, 1970, [id number] Physician: Timothy Joseph MD, PGY1, Pager #[phone], TM 1 service Date of face to [...] 04/12/2020 Laterality: N/A; Surgeon: LU Palma; Location: [facility] SAME DAY SURGERY MAIN OR KIDNEY TRANSPLANT W/O [place] NEPHRECTOMY N/A 04/12/2020 Laterality: N/A; Surgeon: LU Palma; Location: [facility] SAME DAY SURGERY MAIN [...] itraconazole Fax results to: Dr. White - [phone] Transplant Neph - [phone] Gabapentin 400 MG capsule Sig: Take 1 [...] erythema: Skin: No jaundice or rash Neuro: agricultural commodities inspector 3-7, 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 Strength grossly [...] home amlodipine 5mg CAD: non-obstructive CAD on [facility] 2018. - continue home aspirin 81mg daily Gout: continue home allopurinol 200mg daily BPH: continue home flomax 0.4mg daily Complexity. Obesity Body mass index is 32.8 kg/m . - Follow with PCP for dietary and lifestyle modifications. Any conditions listed below are present on admission unless otherwise specified. . DVT prophylaxis with lovenox Disposition: admitted to [facility] Code status is Full Staffed with [...] Pierson, Luisa Steven, Renee Rivera, Daisha Max Print Cutter: José Miguel Garnica All Txt: 04/13/2020 (Kidney), [...] results found for: CYCLOSPORIN , CYCLOSPORIN2 , [id number] , CYCLORAND No results found for: SIROLIMUS [...] request in chart. Kevin Prince MD Pager [phone] [facility] History of Present illness Narrative [...] Name: Prograf 0.2 MG Contact Info: Specialty ([place]) [phone] Jakob [phone] [facility] [phone] David [phone] Bedside Delivery ([facility]) [phone] [facility] RX OUTREACH ADVANCED: Call Information: Date and Time of Contact: 01/25/2024 10:23 AM Method of Contact: By Phone Contact Type: Prescriptions Contactor: [facility] Contactee: Patient Contact Outcome: Left message (prograf myco) Contact Info: Specialty ([place]) [phone] [facility] [phone] [facility] [phone] David [phone] Bedside Delivery ([facility]) [phone] documented in this encounter [facility] 01-12-2024 History of Present illness Narrative [...] Prograf 0.2 MG Contact Info: Specialty ([place]) [phone] [facility] [phone] [facility] [phone] [facility] [phone] Bedside Delivery ([facility]) [phone] [facility] RX OUTREACH ADVANCED: Call Information: Date and Time of Contact: 01/25/2024 10:23 AM Method of Contact: By Phone Contact Type: Prescriptions Contactor: [facility] Contactee: Patient Contact Outcome: Left message (prograf myco) Contact Info: Specialty ([place]) [phone] [facility] [phone] [facility] [phone] [facility] [phone] Bedside Delivery ([facility]) [phone] [facility] RX OUTREACH ADVANCED: Call Information: Date and Time of Contact: 01/27/2024 10:19 AM Method of Contact: By Phone Contact Type: Prescriptions Contactor: [facility] Contactee: Patient Contact Outcome: Left message (myco prograf) Contact Info: Specialty ([place]) [phone] [facility] [phone] [facility] [phone] David [phone] Bedside Delivery ([facility]) [phone] documented in this encounter [facility] 01-12-2024 History of Present illness Narrative [...] Prograf 0.2 MG Contact Info: Specialty ([place]) [phone] [facility] [phone] [facility] [phone] David [phone] Bedside Delivery ([facility]) [phone] [facility] RX OUTREACH ADVANCED: Call Information: Date and Time of Contact: 01/25/2024 10:23 AM Method of Contact: By Phone Contact Type: Prescriptions Contactor: [facility] Contactee: Patient Contact Outcome: Left message (prograf myco) Contact Info: Specialty ([place]) [phone] [facility] [phone] [facility] [phone] David [phone] Bedside Delivery ([facility]) [phone] [facility] RX OUTREACH ADVANCED: Call Information: Date and Time of Contact: 01/27/2024 10:19 AM Method of Contact: By Phone Contact Type: Prescriptions Contactor: [facility] Contactee: Patient Contact Outcome: Left message (myco prograf) Contact Info: Specialty ([place]) [phone] [facility] [phone] [facility] [phone] [facility] [phone] Bedside Delivery ([facility]) [phone] [facility] RX OUTREACH ADVANCED: Call Information: Date and Time of Contact: 02/01/2024 3:22 PM Contact Type: Prescriptions Contactor: [facility] Contactee: Patient Contact Outcome: Left message Shipping/Pickup: Medication Name: Mycophenolate 360mg and Prograf 0.2mg Pack Contact Info: Specialty ([place]) [phone] [facility] [phone] [facility] [phone] [facility] [phone] Bedside Delivery ([facility]) [phone] documented in this [facility] 01-06-2024 History of Present illness Narrative [...] pt to see neurologist [facility] Immunocompromised ([facility]) Hypertension ([facility]) No change in meds Check echo Relevant Orders Echocardiogram 2D complete Bilateral lower extremity edema Relevant Orders Echocardiogram 2D complete Shortness of breath Check ECHO Relevant Orders Echocardiogram 2D complete Other Visit Diagnoses 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) Atherosclerosis 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) documented in this encounter [facility] 10-06-2023 History of Present illness Narrative [...] ; Prograf 0.2 MG Contact Info: Specialty ([place]) [phone] [facility] [phone] [facility] [phone] David [phone] Bedside Delivery ([facility]) [phone] [facility] RX OUTREACH ADVANCED: Call Information: Date and Time of Contact: 10/23/2023 2:00 PM Method of Contact: By Phone Contact Type: Prescriptions Contactor: [facility] Contactee: Patient Contact Outcome: Left message and Call back later Shipping/Pickup: Medication Name: Mycophenolate 360mg and Prograf 0.2mg Contact Info: Specialty ([place]) [phone] Jak[place] [phone] [place] [phone] David [phone] Bedside Delivery ([facility]) [phone] documented in this encounter [facility] 09-11-2023 Miscellaneous Notes Pt discharged home [...] the oxygen during the night. pt will seed cone picker his oxygen from [employer], 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 This RN [...] Patient seen ambulating in the velazquez with FACIALIST. Patient was mildly short of breath on [...] & HR 114. Messaged Mainor Loomis, via [employer] (V3D) secure chat, Temp 100.8. His tylenol order [...] short period of time. 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 Episode of [...] Critical Care Medicine Message Mainor Loomis, via [employer] (V3[employer]) secure chat, Good evening, just an FYI, [...] short period of time. 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 This morning, [...] [address] Loera here also (director school of nursing) Dr. Diaz aware of pt's increased oxygen [...] regular sleep/rest pattern promoted Sent a secure [employer] (V3[employer]) chat to Rosi LUZ concerning patient's temp [...] Medicine-Pediatrics, PGY-2 Mr. Styles was admitted to [address] [place] [address]. On admission to R[facility], from home a [...] available. documented in this encounter [facility] 09-11-2023 History of Present illness Narrative Provided follow-up emotional and spiritual support. Patient shared about rosemary of discharge and looking forward to seeing family Scagliola Mechanic provided: - Supportive presence - Active listening - Validation of feelings/emotions Patient encouraged to request a health plan manager as needed. Chaplains are available in-house 24 hours a day and 7 days a week. For urgent matters in [facility], please page [phone]. If the request is not urgent, please enter a consult. Consults are responded to within 24 hours. Senior Staff Scagliola Mechanic Angie Singh Mdiv, [facility] Kirk [phone] [email or web address] 22/06 On-call Kirk: [phone] 22/06 Pager ,[facility], and Brock 1500 David Pager [phone] 09/11/23 1430 Clinical Encounter Type Visited With Patient Visit Type Follow-up Pastoral Time Spent 15 min Referral Other (See Comment) (rounding) Spiritual Assessment Spiritual Observation Spirituality helpful Emotional Observation Coping well Hope Observation Specific hope focus Support Observation By Family Interventions Provided Active listening;Supportive presence Facilitated Verbalization of feelings Explored Expectations Aeronautics Commission Director Education Aeronautics Commission Director Service Available Yes Educated Patient Plan of Care Continue Visiting PRN Images from the original note were not included. [facility] Note: Non-Verbal Med Rec [facility] received the following discharge prescription(s): Total cost is $0. I have reviewed the Discharge Rx Reconciliation Report. The discharge prescription(s) will be delivered to the patient on 09/11/2023. Dimitrios Gurrola RPh,PharmD Specialty ([place]) [phone] [facility] [phone] [facility] Bedside Delivery [phone] [facility] [phone] [facility] Bedside Delivery [phone] David [phone] [facility] Bedside Delivery [phone] [place] [phone] [place] [phone] Internal Medicine Daily Progress Note Patient: George Styles, 1970, [id number] Physician: Evan Kelly MD, PGY-1, TM1 service Subjective/Interval History: Patient continues to require oxygen overnight for desaturations. With insurance limitations, only accepting agency to provide home oxygen backed out. 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 His [place] kidney disease was noted to be presumed [...] 50mg BID CAD: non-obstructive CAD on [facility] 2019. - continue home aspirin [...] 5.05 (H) 11/19/2018 Kevin Prince MD, SERA Nutrition Services Aide of Clinical Medicine [facility] Images from [...] [employer] [address] [facility] [address] Internal Comment last updated by Lora Lawrence RN 09/10/2023 1334 Correct contact information: [employer] [address] [place] [address] [address] [place] [address] process development chemist- you do not need to call at discharge, I already notified the company. Addendum [phone] [employer] notified this CM they are out of patient's insurance area and will not be able to service this patient at time of discharge. Provider notified. Addendum [phone] Dr Kelly called [employer] spoke to Lynn and she said they are willing to accept patient if the patient would drive to the [place] office and seed cone picker the supplies. 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 [facility] [employer] Addendum 1332 One accepting company reserved in [employer] [facility] [address] [place] [address] Lora Colón RN, MSN, CCM, CMCN Clinical Information Systems Planner- R[facility] Transplant #[phone] NUTRITION FOLLOW-UP Nutrition Plan of Care: 1. Continue current diet order. 2. No oral supplements warranted at this time. 3. Monitor for significant weight changes. Monitor GI, skin integrity. 4. Monitor and encourage po intakes with goal of average po being 75-100%. 5. alignment technician to follow. ___ Met with patient [...] time. Will continue to monitor. RHIANNON BirminghamR Pager:[phone] Transplant Infectious Disease (Team 3) Progress Note [...] sign off. Please Epic message or page [phone] with questions. 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 His [place] kidney disease was noted to be presumed [...] 50mg BID CAD: non-obstructive CAD on [facility] 2018. - continue home aspirin [...] to follow. Please Epic message or page [phone] with questions. 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 His [place] kidney disease was noted to be presumed [...] 50mg BID CAD: non-obstructive CAD on [facility] 2018. 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 His [place] kidney disease was noted to be presumed [...] 50mg BID CAD: non-obstructive CAD on [facility] 2019. - continue home aspirin [...] 5.05 (H) 11/19/2018 Kevin Prince MD, SERA Nutrition Services Aide of Clinical Medicine [facility] Transplant Infectious Disease (Team [...] to follow. Please Epic message or page [phone] with questions. Ann Marie Haskins MD PGY-4, [...] he continues to improve. Please message via [employer] (V3[employer]) secure chat or page with any questions or concerns. Evan White DO Nutrition Services Aide Division of Infectious Disease Transplant Infectious Disease [...] to follow. Please Epic message or page [phone] with questions. Evan White DO Transplant Infectious Diseases Images from the original note were not included. Pulmonary/Critical Care Medicine Daily Progress Note Reason for Consultation: bronch for infectious workup Requesting Physician: Dr. Prince CURRENT HOSPITALIZATION: Admit Date: 08/28/2023 [facility] LOS: 9 days Impression 1. Acute [...] and interpreted reviewed the radiographic data in [facility]. 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 His [place] kidney disease was noted to be presumed [...] 50mg BID CAD: non-obstructive CAD on [facility] 2018. - continue home aspirin [...] 5.05 (H) 11/19/2018 Kevin Prince MD, SERA Nutrition Services Aide of Clinical Medicine [facility]plant [facility] Images from the original note were not included. Pulmonary/Critical Care Medicine Daily Progress Note Reason for Consultation: bronch for infectious workup Requesting Physician: Dr. Alona CURRENT HOSPITALIZATION: Admit Date: 08/28/2023 [facility] LOS: 8 days Impression 1. Acute [...] and interpreted reviewed the radiographic data in IHIS/ChangeAgain.Mehare/careeverywhere. Acute Occupational Therapy Evaluation Prior to Admission [...] Assessment: Transfer Assessment: Sit to Stand Transfer [place] Level: Sit->Stand: independent Skilled Intervention/Details: Sit->Stand: x1 from EOB, x1 from toilet Stand to Sit Transfer [place] Level: Stand->Sit: independent Skilled Intervention/Details: Stand->Sit: x1 to toilet, x1 to EOB Functional Mobility: Functional Mobility [place] Level: Functional Mobility/Gait: independent Ambulation Distance (Feet): 20 Skilled Intervention/Details - Functional Mobility/Gait: pt performed functional mobility to/from RR w/ no overt LOB Outcome Score(s): CURRENT [facility] Daily Activity Inpatient Short Form Putting on/Taking Off Lower Body Clothin - A Little Assistance Bathin - A Little Assistance Toiletin - A Little Assistance Putting on/Taking Off Upper Body Clothin - No Assistance Groomin - No Assistance Eatin - No Assistance CURRENT [facility] Activity Raw Score: 21 CURRENT [facility] Activity Functional Limitation/Modifier: 32.79% Currently [...] Acute Physical Therapy Evaluation Prior to Admission [facility] score(s): PRIOR LEVEL AM-PAC Mobility Raw [...] Intact Mobility Assessment: Supine to Sit Mobility [place] Level: Supine->Sit: modified independence Bed Features/Set-up: Supine->Sit: Head of bed elevated Sit to Supine Mobility [place] Level: Sit->Supine: not tested Balance: Sitting Balance [...] environment. Transfer Assessment: Sit to Stand Transfer [place] Level: Sit->Stand: independent Skilled Intervention/Details: Sit->Stand: From EOB x 2 without difficulty. Stand to Sit Transfer [place] Level: Stand->Sit: independent Assistive Device: Stand->Sit: armed chair Skilled Rationale: Verbal cues, Positioning Gait/Functional Mobility: Gait Assessment [place] Level: Gait: stand-by assist Assistive Device: Gait: rollator Ambulation Distance (Feet): 400 Gait Deviations Identified: decreased grace, decreased gait speed Gait Skilled Rationale: verbal, upright posture, increase step length, increase foot clearance Skilled Intervention/Details - Gait: Reasonable foot clearnce without loss of balance but endorsing dyspnea as 6-7/10. Stairs: Stairs Assessment [place] Level: Stair Negotiation: not tested Outcome Score(s): CURRENT [facility] Basic Mobility Inpatient Short Form [...] a railin - A Little Assistance CURRENT [facility] Mobility Raw Score: 21 CURRENT [facility] Mobility Functional Limitation/Modifier: 28.97% Currently [...] Daily Progress Note Patient: George Styles, 1970, [id number] Physician: Evan Kelly MD, PGY-1, TM1 service [...] without pulmonary edema. Clear lungs. Assessment/Plan: George tSyles is a 53 y.o. 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 His [place] kidney disease was noted to be presumed [...] 50mg BID CAD: non-obstructive CAD on [facility] 2018. - continue home aspirin [...] 5.05 (H) 11/19/2018 Kevin Prince MD, SERA Nutrition Services Aide of Clinical Medicine [facility] Transplant Infectious Disease (Team [...] to follow. Please Epic message or page [phone] with questions. Evan White DO Transplant Infectious Diseases Images from the original note were not included. 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 His [place] kidney disease was noted to be presumed [...] 50mg BID CAD: non-obstructive CAD on [facility] 2018. - continue home aspirin [...] P 450 system Kevin Prince MD, SERA Nutrition Services Aide of Clinical Medicine [facility] ERT Note: ERT called [...] Pediatrics PGY-3 [facility] Brief plan [...] Pediatrics PGY-3 [facility] Transplant Infectious [...] to follow. Please Epic message or page [phone] with questions. 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 His [place] kidney disease was noted to be presumed [...] / renal function CAD: non-obstructive CAD on [facility] 2018. 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 His [place] kidney disease was noted to be presumed [...] renal function CAD: non-obstructive CAD on [facility] 2018. - continue home aspirin [...] 5.05 (H) 11/19/2018 Kevin Prince MD, MADISONN Nutrition Services Aide of Clinical Medicine [facility] Progression of Care Note [...] Lora Colón RN, MSN, CCM, CMCN Clinical Information Systems Planner- R10 Transplant #[phone] Made introductory visit with patient. Provided emotional and spiritual support. Patient shared about: - Source of Rosemary: Camping/Fishing/Family - Spirituality/Jain Affiliation: raised Taoism - Family Support/history - Experience with illness/hospital course - Hopes for healing/future Scagliola Mechanic provided: - Supportive presence - Active listening - Validation of feelings/emotions - Pledged prayer Patient encouraged to request a health plan manager as needed. Chaplains are available in-house 24 hours a day and 7 days a week. For urgent matters in [facility], please page [phone]. If the request is not urgent, please enter a consult. Consults are responded to within 24 hours. Senior Staff Scagliola Mechanic Angie Singh Mdiv, [facility] [place] [phone] [email or web address] 22/06 On-call Kirk: [phone] 22/06 Pager ,[facility], and Brock Maciel Pager [phone] 09/02/23 111 Clinical Encounter Type Visited With Patient Visit Type Introduction Pastoral Time Spent 15 min Referral Other (See Comment) (rounding) Spiritual Assessment Spiritual Observation Spirituality helpful Emotional Observation Coping well Hope Observation Specific hope focus Support Observation By Family Interventions Provided Active listening;Supportive presence Facilitated Verbalization of feelings Explored Expectations Aeronautics Commission Director Education Aeronautics Commission Director Service Available Yes Educated Patient Outcomes Patient Outcomes Reduced distress Plan of Care Continue Visiting PRN NUTRITION RISK SCREENING NOTE Nutrition Plan of Care: 1. Continue current diet order. 2. No oral supplements warranted at this time. 3. Monitor for significant weight changes. Monitor GI and skin integrity. 4. Monitor and encourage po intakes with goal of average po being 100%. 5. alignment technician to follow. George Styles is a 53 y.o. 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 His [place] kidney disease was noted to be presumed hepatorenal syndrome. His post-transplant course was noteworthy for nephrostomy tube (05/17/2022-09/10/2022) due to concern for ureteral stone. He presents as a direct admission for fever, cough, for infectious workup. Pt unavailable and information obtained via chart review Cork Tipper Screening Pt's appetite is good. Pt with [...] with meds Food Allergies reviewed:Rissafish Cultural or Jain Restrictions/Preferences: None GI: Last [...] time. Will continue to monitor. 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 His [place] kidney disease was noted to be presumed [...] renal function CAD: non-obstructive CAD on [facility] 2018. - continue home aspirin [...] as outlined above. Kevin Prince MD Pager [phone] Summary: Pharmacy Med Rec Department of Pharmacy [...] further questions. Name: Heidy Chatman Phone #: [phone] Date/Time: 09/01/2023 2:01 PM Time Spent: 15 minutes Associated attestation - Matt Kramer RPh,PharmJenna - 09/01/2023 2:28 PM EDT Department of Pharmacy Admission Medication Reconciliation Note Patient: George Styles Room/Bed: 1062/A I have reviewed the home medication list with the Chlorine Operator. All changes to the home medication list have been updated in [facility]HIS. Updated TEXTILE WORKER Med List: Prior to Admission Medications [...] questions. Name: Matt Kramer RPh,PharmD Phone #: [phone] Date/Time: 09/01/2023 2:28 PM Transplant Infectious Disease [...] crypto antigen, EBV PCR -follow pending histo, [id number] labs These recommendations were discussed with the primary team. Transplant ID (Team 3) will continue to follow. Please Epic message or page [phone] with questions. 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 His [place] kidney disease was noted to be presumed [...] renal function CAD: non-obstructive CAD on [facility] 2018. - continue home aspirin [...] 5.05 (H) 11/19/2018 Kevin Prince MD, SERA Nutrition Services Aide of Clinical Medicine [facility] Discharge Planning Patient Assessment [...] Yes Name and Contact information: Gian Styles ([phone]) Reviewed and Updated in Demographics? : Yes [...] patient on Anticoagulation? : No [id number] [place] [address] - [address] [facility] [address] [facility] [address] Lens Inserter Does the patient or customer service representative teacher express financial concerns? : No Employed?: Disabled [...] Plan 1. Identified self and role as Information Systems Planner. 2. Confirmed and updated demographics and treatment team. 3. Information Systems Planner will continue to follow with medical team/pt for any other additional discharge needs. Kasandra DON RN [facility] [phone] *Please note I am float CM and work Thursday and Thursday every other week. Please call [phone] for assist in my absence. 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 His [place] kidney disease was noted to be presumed [...] renal function CAD: non-obstructive CAD on [facility] 2018. 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 His [place] kidney disease was noted to be presumed [...] 50mg BID CAD: non-obstructive CAD on [facility] 2018. - continue home aspirin 81mg daily, atorvastatin 20mg daily Gout: continue home allopurinol 200mg daily BPH: continue home flomax 0.4mg daily DVT PPX: SQH Code Status: Full Code Disposition: Pending clinical course. Anticipate eventual discharge home. Discussed with team and attending, Kevin Prince MD, on rounds. Signed, Laurel Serrano MD, PhD documented in this encounter [facility] 09-10-2023 Hospital Discharge instructions Laurel Serrano [...] a sleep doctor. You will need to seed cone picker the oxygen concentrator when you [...] healthy foods. documented in this encounter [facility] 09-01-2023 Consult note Associated Order (s): IP CONSULT TO PULMONOLOGY Pulmonary Medicine Inpatient Consultation Reason for Consultation: bronch for infectious workup Requesting Physician: Dr. Prince Pulmonary Attending Physician: Dr. Diaz CURRENT HOSPITALIZATION: Admit Date: 08/28/2023 [facility] LOS: 4 days Impression/Recommendations: George Styles [...] Recommendations: - Plan to bronch tomorrow morning. NPO@DC, order placed - would repeat HIV, last test March Thank you for the consult. We will continue to follow. Izzy Loera MD Pulmonary and Critical Care Fellow [phone] History of Presenting Illness: Mr Styles confirms history as documented in the chart. 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 Other histories as documented in the [...] ill contacts. He traveled to [place] to [facility] in May. REVIEW OF SYSTEMS A [...] DAY SURGERY MAIN OR KIDNEY TRANSPLANT W/O [place] NEPHRECTOMY N/A 04/12/2020 Laterality: N/A; Surgeon: LU Palma; Location: [facility] SAME DAY SURGERY MAIN [...] Alamo MD I can be reached via Altia message ([employer]) or Pager #[phone] documented in this encounter [facility] 08-28-2023 History and physical note Images from the original note were not included. Internal Medicine Admission History & Physical Patient: George Styles, 1970, [id number] Physician: Aric Turner MD, PGY1, Pager #[phone], CJ service Date of face to face patient [...] So he went to see the transplant independent living instructor. He was found elevated Cr and [...] Appetite is ok now. Urine is about 8787-4781 ml every day. 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 His [place] kidney disease was noted to be presumed [...] Urinary histoplasmosis - PJP, candid PCR - Ballet Professor transplant ID Acute Kidney Injury with Kidney [...] 50mg BID CAD: non-obstructive CAD on [facility] 2018. - continue aspirin 81mg [...] Pierson, Luisa Steven, Renee Rivera, Daisha Max Print Cutter: José Miguel Garnica All Txt: 04/13/2020 (Kidney), [...] results found for: CYCLOSPORIN , CYCLOSPORIN2 , [id number] , CYCLORAND No results found for: SIROLIMUS [...] Rest as above. Kevin Prince MD Pager [phone] documented in this encounter [facility] 08-28-2023 History of Present illness Narrative Images from the original note were not included. 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 Print Cutter: Anayeli Burt Date of Liver Transplant: 04/13/2020 (Kidney), 04/13/2020 (Liver) 3 years 4 months post Liver/Kidney Transplant Primary Disease: Hypertensive Nephrosclerosis Transplant Customer Service Analyst: Erma Roe/ Daisha Max Primary Care physician: [...] and faMOTIdine === None Specified Preferred Lab: [facility] Change in lab frequency / new [...] every 12 hours. ADDITIONAL INFORMATION: None Specified, [id number] [place] [address] - [address] [facility] [address] [facility] [address] [facility] [address] [facility] [facility] [place] [address] [id number] [address] [address] [facility] [address] [place] [id number] [facility] [address], [address] [place] [address] ROS and SCREEN: Chest Pain: negative Cough: [...] PHYSICIAN: I saw George Styles at the [facility] on 08/28/2023. Patient is a 53 y.o. 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 His [place] kidney disease was noted to be presumed [...] GUIDANCE 05/17/2022 Surgeon: Enzo Heart DO; Location: [facility] INTERVENTIONAL RADIOLOGY (VIR) LIVER TRANSPLANT, ORTHOTOPIC N/A 04/12/2020 Laterality: N/A; Surgeon: LU Palma; Location: [facility] SAME DAY SURGERY MAIN OR KIDNEY TRANSPLANT W/O [place] NEPHRECTOMY N/A 04/12/2020 Laterality: N/A; Surgeon: LU Palma; Location: [facility] SAME DAY SURGERY MAIN [...] you have any questions. Steve Munoz MD modular home crew member Division of Nephrology [facility] documented in this encounter [facility] 08-28-2023 Instructions Mainor Busby RN - 08/28/2023 2:15 PM EDT - Admission for fevers, cough, and night sweats documented in this encounter [facility] 08-19-2023 History of Present illness Narrative [facility] RX OUTREACH ADVANCED: Call Information: Date and Time of Contact: 08/19/2023 2:52 PM Method of Contact: By Phone Contact Type: Prescriptions Contactor: [facility] OP Contactee: Patient Shipping/Pickup: Medicare B Refill?: No Medication Name: Tacro 0.5mg Delivery Method: Air Delivery Location: Home Signature Required: No Mailing/Pickup Date: 08/25/2023 Shipping Address: [address] [place] [address] [address] Contact Info: Specialty ([place]) [phone] [facility] [phone] [facility] [phone] David [phone] Bedside Delivery ([facility]) [phone] documented in this encounter [facility] 06-12-2023 History of Present illness Narrative Images from the original note were not included. George Styles is a 53 y.o. 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 No longer follows with a local independent living instructor. History of Present Illness: Since George [...] and lab results. Rebeca Gutierrez MSN, RN, DYNAMOMETER REPAIRER-BC, CCTN Certified Nurse Practitioner Comprehensive Transplant Center [facility] [address] [facility] [address] documented in this encounter [facility] 06-12-2023 Instructions JEANNA Hess - 06/12/2023 3:00 PM EDT No change in immunosuppression. documented in this encounter [facility] 06-10-2023 History of Present illness Narrative [facility] OUTREACH ADVANCED: Call Information: Method of Contact: By Phone Contact Type: Prescriptions Contactor: [facility] OP Contactee: Patient Contact Outcome: Left message Shipping/Pickup: Medication Name: Mycophenolate sod 180 mg Contact Info: Specialty ([place]) [phone] [facility] [phone] [facility] [phone] David [phone] Bedside Delivery ([facility]) [phone] [facility] RX OUTREACH ADVANCED: Call Information: Date and Time of Contact: 06/12/2023 9:43 AM Method of Contact: By Phone Contact Type: Prescriptions Contactor: [facility] OP Contactee: Patient Contact Outcome: Left message and Follow-up Shipping/Pickup: Medicare B Refill?: No Medication Name: Myco 180 Contact Info: Specialty ([place]) [phone] Jakob [phone] [facility] [phone] David [phone] Bedside Delivery ([facility]) [phone] [facility] RX OUTREACH ADVANCED: Call Information: Date and Time of Contact: 06/12/2023 10:08 AM Method of Contact: By Phone Contact Type: Prescriptions Contactor: [facility] OP Contactee: Patient Shipping/Pickup: Medicare B Refill?: No Medication Name: Mycophenolate 180mg DR Delivery Method: Air Delivery Location: Home Signature Required: No Mailing/Pickup Date: 06/17/2023 Shipping Address: [address] [place] [address] Contact Info: Specialty ([place]) [phone] [facility] [phone] [facility] [phone] [facility] [phone] Bedside Delivery ([facility]) [phone] documented in this encounter [facility] 03-12-2023 History of Present illness Narrative [facility] RX OUTREACH ADVANCED: Call Information: Date and Time of Contact: 03/12/2023 10:34 AM Method of Contact: By Phone Contact Type: Prescriptions Contactor: [facility] OP Contactee: Patient Shipping/Pickup: Medicare B Refill?: No Medication Name: Mycophenoloate sod 360 mg prednisone 5mg Delivery Method: Air Delivery Location: Home Signature Required: No Mailing/Pickup Date: 03/16/2023 Shipping Address: [address] [place] [address] Contact Info: Specialty ([place]) [phone] Jakob [phone] [facility] [phone] David [phone] Bedside Delivery ([facility]) [phone] [facility] OP RX OUTREACH ADVANCED: Call Information: [...] No Mailing/Pickup Date: 03/19/2023 Shipping Address: [address] [place] [address] [address] Contact Info: Specialty ([place]) [phone] Jakob [phone] [facility] [phone] David [phone] Bedside Delivery ([facility]) [phone] documented in this encounter [facility] 03-10-2023 History of Present illness Narrative [facility] RX OUTREACH ADVANCED: Call Information: Date and Time of Contact: 03/10/2023 12:00 PM Method of Contact: By Phone Contact Type: Prescriptions Contactor: [facility] OP Contactee: Patient Contact Outcome: Left message and Call back later Shipping/Pickup: Medication Name: Mycophenolate ; Tacrolimus Contact Info: Specialty ([place]) [phone] Jakob [phone] [facility] [phone] David [phone] Bedside Delivery ([facility]) [phone] documented in this encounter [facility] 03-10-2023 History of Present illness Narrative [facility] RX OUTREACH ADVANCED: Call Information: Date and Time of Contact: 03/10/2023 12:00 PM Method of Contact: By Phone Contact Type: Prescriptions Contactor: [facility] OP Contactee: Patient Contact Outcome: Left message and Call back later Shipping/Pickup: Medication Name: Mycophenolate ; Tacrolimus Contact Info: Specialty ([place]) [phone] [facility] [phone] [facility] [phone] David [phone] Bedside Delivery ([facility]) [phone] [facility] OP RX OUTREACH ADVANCED: Call Information: Date and Time of Contact: 03/12/2023 10:32 AM Method of Contact: By Phone Contact Type: Prescriptions Contactor: [facility] OP Contactee: Patient Contact Outcome: Left message Shipping/Pickup: Medication Name: Mycophenolate sodium (MYFORTIC) 180 MG Tab tacrolimus 0.5 mg Contact Info: Specialty ([place]) [phone] [facility] [phone] [facility] [phone] David [phone] Bedside Delivery ([facility]) [phone] documented in this encounter [facility] 01-16-2023 History of Present illness Narrative -Referring Provider for today's consult: Daisha Max DO -Primary Care Provider: Zuly Bruno History of Present Illness George Styles is a 52 y.o. male who presents to the [facility] Transplant Hepatology Clinic today for follow-up [...] GUIDANCE 05/17/2022 Surgeon: Enzo Heart DO; Location: [facility] INTERVENTIONAL RADIOLOGY (VIR) LIVER TRANSPLANT, ORTHOTOPIC N/A 04/12/2020 Laterality: N/A; Surgeon: LU Palma; Location: [facility] SAME DAY SURGERY MAIN OR KIDNEY TRANSPLANT W/O [place] NEPHRECTOMY N/A 04/12/2020 Laterality: N/A; Surgeon: LU Palma; Location: [facility] SAME DAY SURGERY MAIN [...] 0.3 12/29/2022 Explant Pathology Pathologic Diagnosis A. [place] liver, orthotopic liver transplant resection (1458 gram): [...] A/P with IV contrast (06/27/2022): 1. Both [place] kidneys are atrophic with improvement in right-sided [...] frequent nighttime urination, etc). Daisha Max DO Nutrition Services Aide Gastroenterology, Hepatology and Nutrition [facility] Pager: [phone] Images from the original note were not included. 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 Print Cutter: Anayeli Burt Date of Liver Transplant: 04/13/2020 (Kidney), 04/13/2020 (Liver) 2 years, 8 months post Liver/Kidney Transplant Primary Disease: Hypertensive Nephrosclerosis Transplant Customer Service Analyst: Steve Munoz Primary Care physician: Zuly Bruno [...] levels: No results found for: CYCLOSPORIN, CYCLOSPORIN2, [id number], CYCLORAND No components found for: CYCLOSPORINE, 2HR [...] hours. ADDITIONAL INFORMATION: None Specified [id number] [place] [address] - [address] [facility] [address] [facility] [address] [facility] [place] [facility] [address] [facility] [address] [id number] [place] [address] [address] [facility] [address] [facility] [address] [facility] [address], [place] [address] [facility] [address] ROS and SCREEN: Chest Pain: negative Cough: [...] PHYSICIAN: documented in this encounter [facility] 01-16-2023 Instructions José Miguel Garnica RN - 01/16/2023 9:40 AM EST - Labs Every 2 months - Discuss night time urination with your PCP - Schedule Colonoscopy through PCP - Follow up in 1 year documented in this encounter [facility] 09-10-2022 History of Present illness Narrative [...] and no hydronephrosis. Some reflux up the [place] right ureter but good drainage of both transplant and [place] ureter to the bladder. Nephrostomy tube was [...] transplant, orthotopic (N/A, 04/12/2020); kidney transplant w/o [place] nephrectomy (N/A, 04/12/2020); and placement nephrostomy catheter [...] Negative for , diarrhea, constipation Genitourinary: See HO-CHUNK Neurological: Negative for headaches. Lymph/Heme: Negative for [...] x 4, Normal strength. No edema. Skin: Streeter, warm, and dry. There are no rashes [...] and no hydronephrosis. Some reflux up the [place] right ureter but good drainage of both transplant and [place] ureter to the bladder. Nephrostomy tube was [...] 09/10/22 documented in this encounter [facility] 07-07-2022 History of Present illness Narrative [...] assisted off the table and escorted to corporate receptionist where they made a follow up. [...] yo male with a DDRT to the [facility] in 2019. Nephrostomy tube placed 05/17/22 [...] to have transplant ureter with anastomosis to [place] right ureter. Nephrostogram without filling defects and no hydronephrosis. Some reflux up the [place] right ureter but good drainage of both transplant and [place] ureter to the bladder. Nephrostomy tube was [...] 07/07/22 documented in this encounter [facility] 06-27-2022 History of Present illness Narrative [...] transplant, orthotopic (N/A, 04/12/2020); kidney transplant w/o [place] nephrectomy (N/A, 04/12/2020); and placement nephrostomy catheter [...] Negative for , diarrhea, constipation Genitourinary: See HO-CHUNK Neurological: Negative for headaches. Lymph/Heme: Negative for [...] x 4, Normal strength. No edema. Skin: Streeter, warm, and dry. There are no rashes [...] yo male with a DDRT to the [facility] in 2019. Nephrostomy tube placed 05/17 [...] bag if needed. documented in this encounter [facility] 06-27-2022 History and physical note Patient was evaluated in clinic as a nurse visit. Please refer to Rena Brewster's note. [facility] Work Phone: 06-27-2022 History and physical note Patient was evaluated in clinic as a nurse visit. Please refer to Rena Brewster's note. documented in this encounter [facility] 06-27-2022 History of Present illness Narrative TEACHING REGARDING TX NEPH COMPLETED-NEPH TUBE SITE DRY AND INTACT-CLEAR YELLOW URINE IN THE BAG-INSTRUCTED ABOUT FLUSHING, BAG CHANGING ETC. NUMEROUS QUESTIONS ASKED AND ANSWERED-VERBALIZED UNDERSTANDING documented in this encounter [facility] 06-18-2022 Note EXAMINATION: CT ABD/ PELVIS [...] mass or enlargement. KIDNEYS: Marked atrophy of [place] kidneys. Transplant right pelvic kidney with percutaneous [...] by: MÓNICA JIMENEZ Date: 2022-06-18 13:53 [facility] 06-12-2022 Instructions Anayeli Christianson RN - 06/12/2022 3:21 PM EDT Do not take apart/disrupt nephrostomy tube system. Call Interventional Radiology and/or on-call transplant nurse [phone] for instruction if need to flush (clot or decreased flow). Take cipro 500mg, one tablet, twice per day for 14 days documented in this encounter [facility] 06-12-2022 History of Present illness Narrative Images from the original note were not included. 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 Print Cutter: Anayeli Burt Date of Liver Transplant: 04/13/2020 (Kidney), 04/13/2020 (Liver) 2 year, 1 months post Liver/Kidney Transplant Primary Disease: Hypertensive Nephrosclerosis Transplant Customer Service Analyst: Steve Munoz Primary Care physician: Zuly Bruno [...] PREFERRED LAB AND PHARMACY: None Specified [facility] [place] [id number] - [address] [address] [facility] [address], [address] [facility] [address] [id number] [place] [address] [address] [facility] [address] [facility] [address] [facility] [address], [address] [place] [address] ROS and SCREEN: Chest Pain: negative Cough: negative SOB: negative Abd Pain: negative Nausea: positive Vomiting: negative Diarrhea: negative Constipation: negative Dysuria: positive Edema: negative Tremors: negative Headaches: negative Wound issues: negative Pt has neph tube w clear yellow urine. States he had a small clot that he dislodged QUESTIONS OR CONCERNS TO ADDRESS WITH PHYSICIAN: I saw George Styles at the [facility] on 06/12/2022. Patient is a 52 y.o. 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 His [place] kidney disease was noted to be presumed [...] GUIDANCE 05/17/2022 Surgeon: Enzo Heart DO; Location: [facility] INTERVENTIONAL RADIOLOGY (VIR) LIVER TRANSPLANT, ORTHOTOPIC N/A 04/12/2020 Laterality: N/A; Surgeon: LU Palma; Location: [facility] SAME DAY SURGERY MAIN OR KIDNEY TRANSPLANT W/O [place] NEPHRECTOMY N/A 04/12/2020 Laterality: N/A; Surgeon: LU Palma; Location: [facility] SAME DAY SURGERY MAIN [...] you have any questions. 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 We recommend routine exchange every 8-10 weeks. Please reach out at [phone] when it is time to set your next routine exchange. Thank you IR clinic documented in this encounter [facility] 06-04-2022 History of Present illness Narrative [...] understanding. documented in this encounter [facility] 05-20-2022 Note Formatting of this n [...] his discharge. Leon Cook RN [facility] 05-20-2022 Miscellaneous Notes Patient discharged. AVS [...] provide teaching before his discharge Leon RN #[id number] Leon Cook RN Afternoon assessment completed at [...] Interdisciplinary Rounds/Family Conf Outcome: Ongoing Discussed with [facility] re: possible urine culture performed at [...] with questions. Evan Byrd MD Urology, PGY-2 #[id number] I certify that this patient requires inpatient [...] Kallie Lorenzana RN documented in this encounter [facility] 05-20-2022 Note Formatting of this n [...] care. Outcome: Adequate for Discharge [facility] 05-20-2022 Note Formatting of this n ote might be different from the original. Anne Dillard MD R10 Rm 1004 Jensen Orellana Please let's have a clear order on how the nephrostomy site dressing need to be changed when the patient goes home so we provide teaching before his discharge Leon RN #[id number] Leon Cook, RN [facility] 05-20-2022 History of Present illness Narrative Images from the original note were not included. [facility] Note: [facility] the following discharge prescription(s): Medication reconciliation was completed with comparison to discharge reconciliation report. The prescription(s) will be delivered to the patient's bedside on 05/20/22. Total cost is $0. Yanira Her RPh,PharmD Specialty ([place]) [phone] [facility] [phone] [facility] [phone] [facility] [phone] [place] [phone] Bedside Delivery ([facility]) [phone] Attending I saw George Styles at the [facility] on 05/19/2022. I saw and independently evaluated [...] Daily Progress Note Patient: George Styles, 1970, [id number] Physician: Liam Julian MD, PGY-3, Pager #[phone], [id number] Subjective/Interval History: No acute events overnight. Passed [...] Saldana MD Division of Hospital Medicine Pager [phone] Attending I saw George Styles at the [facility] on 05/18/2022. 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 Daya Saldana MD (Peggy) Division of Hospital Medicine Pager [phone] Internal Medicine Daily Progress Note Patient: George Styles, 1970, [id number] Physician: Nishant Gamez MD, PGY2, Pager #[phone], [id number] Subjective/Interval History: Worsening creatinine this morning with [...] Les, MD Division of Hospital Medicine Pager [phone] Attending I saw George Styles at the [facility] on 05/17/2022. I saw and independently evaluated [...] of chart and discussion with treatment team, Information Systems Planner has not identified needs at this time. [...] follow. Introduced self and role of the health plan manager to patient. Provided emotional and spiritual support and the patient responded by sharing their experience and discussed the following: - Spirituality/Jain Affiliation: As a kid attended Taoism religious but not a strong identity now - Family support - pt's brothers live close by [place] Mechan[employer] provided: - Supportive presence - Active listening - Validation of feelings/emotions Patient encouraged to request a health plan manager as needed. Chaplains are available in-house 24 hours a day and 7 days a week. For urgent matters in [facility], please page [phone]. If the request is not urgent, please enter a consult. Consults are responded to within 24 hours. Angie Singh Mdiv, [facility] Transplant [place] [address] [employer] [facility] [employer] [place] [phone] [email or web address] 22/06 [facility] Pager [phone] 22/06 Pager ,BSH, and Brock 1500 22/06 David Pager [phone] 05/16/22 1124 Clinical Encounter Type Visited With Patient Visit Type Introduction Pastoral Time Spent 15 min Referral Other (See Comment) (Rounding) Spiritual Assessment Spiritual Observation Spirituality helpful;Identifies as (see comment) (Yarsani) Emotional Observation Coping well Hope Observation Hopeful and accepting Support Observation By Family Interventions Provided Active listening;Supportive presence Facilitated Verbalization of feelings;Sharing of life story;Identifying support system Explored Expectations Aeronautics Commission Director Education Aeronautics Commission Director Service Available Yes Educated Patient Outcomes Patient Outcomes Articulated purpose/meaning Plan of Care Continue Visiting PRN Internal Medicine Daily Progress Note Patient: George Styles, 1970, [id number] Physician: Nishant Gamez MD, PGY2, Pager #[phone], [id number] Subjective/Interval History: Overall feeling okay this morning. [...] to 15 on admission. Images pushed from Ol. 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 [...] Supervision Transfer Assessment: Sit to Stand Transfer [place] Level: Sit->Stand: independent Skilled Intervention/Details: Sit->Stand: x1 from EOB Stand to Sit Transfer [place] Level: Stand->Sit: supervision Assistive Device: Stand->Sit: armed chair Skilled Rationale: Controlled descent for sitting, Verbal cues Gait/Functional Mobility: Gait Assessment [place] Level: Gait: supervision Assistive Device: Gait: gait belt Gait Distance (feet): 200 Gait Deviations Identified: decreased grace, decreased step length, decreased stride length Gait Skilled Rationale: verbal, upright posture Skilled Intervention/Details - Gait: Pt with steady gait without LOB or complaints of SOB. Stairs: Stairs Assessment [place] Level: Stair Negotiation: stand-by assist Assistive Device: Stair Negotiation: gait belt, left rail (ascending) Number of stairs: 9 Stairs Skilled Rationale: reciprocal pattern Outcome Score(s): CURRENT [facility] Basic Mobility Inpatient Short Form Turning over in bed: 4 - No Assistance Sitting/standing from chair: 4 - No Assistance Moving from lying on back to sittin - No Assistance Moving to and from bed to chair: 4 - No Assistance Walk in hospital room: 3 - A Little Assistance Climbing 3-5 steps with a railin - A Little Assistance CURRENT [facility] Mobility Raw Score: 22 CURRENT [facility] Mobility Functional Limitation/Modifier: 20.91% Currently [...] community) 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 IADL History IADLs: independent Primary Language: Mauritian Home Management Skills: independent Meal Prep Responsibility: [...] Assessment: Transfer Assessment: Sit to Stand Transfer [place] Level: Sit->Stand: independent Skilled Rationale: Cues for increased safety Skilled Intervention/Details: Sit->Stand: x1 EOB Stand to Sit Transfer [place] Level: Stand->Sit: supervision Assistive Device: Stand->Sit: gait belt, armed chair Skilled Rationale: Verbal cues, Controlled descent for sitting, Cues for increased safety Skilled Intervention/Details: Stand->Sit: cues for hand placement and controlled descent Functional Mobility: Functional Mobility [place] Level: Functional Mobility/Gait: stand-by assist Assistive Device: Functional Mobility/Gait: gait belt Functional Mobility Distance: Distance needed for limited community mobility Functional Mobility Deficits: Activity tolerance, Balance, Decreased step length, Generalized weakness Functional Mobility Skilled Rationale: Verbal cues, Facilitate postural control Skilled Intervention/Details - Functional Mobility/Gait: cues for upright posture Outcome Score(s): CURRENT [facility] Daily Activity Inpatient Short Form Putting on/Taking Off Lower Body Clothin - A Little Assistance Bathin - A Little Assistance Toiletin - A Little Assistance Putting on/Taking Off Upper Body Clothin - No Assistance Groomin - No Assistance Eatin - No Assistance CURRENT [facility] Activity Raw Score: 21 CURRENT [facility] Activity Functional Limitation/Modifier: 32.79% Currently [...] DAY SURGERY MAIN OR KIDNEY TRANSPLANT W/O [place] NEPHRECTOMY N/A 04/12/2020 Laterality: N/A; Surgeon: LU [...] by: Mel Norman OT, OTR/L License #: [id number] pager # [phone] 05/20/2022 Upon discontinuation of Acute Care Occupational Therapy Services or patient discharge from the hospital this note represents the current Occupational Therapy Discharge Summary. documented in this encounter [facility] 05-20-2022 Hospital course Narrative Discharge Summary [...] during his recent hospital stay at [facility]. As you may know, George Styles, [...] Saldana MD Division of Hospital Medicine p: [phone] f: [phone] CONSULTS DURING ADMISSION: IP CONSULT TO SURGERY - UROLOGY IP CONSULT TO NEPHROLOGY - TRANSPLANT (MEDICINE) IP CONSULT TO INTERVENTIONAL RADIOLOGY IP CONSULT TO PHYSICAL THERAPY IP CONSULT TO OCCUPATIONAL THERAPY IP CONSULT TO PHARMACY BEDSIDE DISCHARGE MED DELIVERY IMAGING / PROCEDURES / RESULTS: Should you require further information or copies of results or reports please contact Medical Information Management @ [phone] LABS AT TIME OF DISCHARGE: Lab Results [...] AT DISCHARGE: Zuly Bruno [address] Count Includes [facility] / [place] [address] MEDICATIONS: Discharge Orders CT ABDOMEN/PELVIS WITHOUT CONTRAST [...] CAPS Generic drug: docusate Follow-up: Zuly Bruno, REGIONAL EDUCATION MANAGER [address] [facility] [phone] Schedule an appointment as soon as possible for a visit Follow-up appointment with your, primary care physician within 7-10 days, after discharge. [address] [facility] [address] Follow up The department of urology will call you with a follow up appointment. LU Ovalle [address] 11th Floor [facility] [address] Follow up Please make a follow up appointment with Dr. Munoz's office. Upcoming Appointments (up to five)-Some appointments for Medical Center outpatient clinics or diagnostic testing locations are not displayed below Provider Department Dept Phone 06/04/2022 10:40 AM [facility] MAC[facility] Interventional Radiology Clinic [phone] 06/27/2022 1:[address] [facility], [facility] Department of Radiology Arrive at: Arrive to First Floor Registration Desk [phone] 06/27/2022 2:40 PM Ryan Yepez [facility] [place] Arrive at: Arrive to 2nd Floor, Registration [address] 10/31/2022 1:00 PM Steve Colón [facility] Transplant [facility] [phone] 01/16/2023 9:40 AM TRANSPLANT HEPATOLOGY 3, [facility] Transplant [facility] [phone] Associated attestation - Daya Saldana MD - [...] MD (Peggy) Division of Hospital Medicine Pager [phone] documented in this encounter [facility] 05-20-2022 Hospital Discharge instructions Giulia Cavazos [...] be changed by Interventional Radiology. Please call [phone] to schedule this appointment and with any questions or concerns you may have regarding the nephrostomy tube. If you have questions or concerns, please call Interventional Radiology at SOMEONE FROM INTERVENTIONAL RADIOLOGY WILL CALL YOU FOR A FOLLOW UP IN THE IR CLINIC Giulia Cavazos RN Nurse Coordinator Interventional Radiology Interventional Radiology Outpatient scheduling documented in this encounter [facility] 05-19-2022 Note Formatting of this n [...] Ongoing Goal: Interdisciplinary Rounds/Family Conf Outcome: [facility]ing [facility] Note Formatting of this n ote might be different from the original. Discussed with [facility] re: possible urine culture performed at their facility. However, based on urinalysis completed at that time, which was only notable for hematuria, culture was not performed and sample no longer feasible for culture. Liam Julian MD Internal Medicine/Pediatrics, PGY-3 [facility] 05-18-2022 Note Formatting of this n ote might be different from the original. 2003: IHIS message sent to Dr Justyn Wen, regarding patient passing a small kidney stone, about the size of pea. MD notified. Stone left in strainer in pt bathroom. 0500: IHIS message sent to Dr Justyn Wen, regarding pt BP 174/77. [facility] 05-18-2022 Note Formatting of this n [...] discharge/transition of care. Outcome: Ongoing [facility] 05-18-2022 Note Formatting of this n [...] becomes hyponatremic, NS should instead be used. [facility] Work Phone: 05-18-2022 Note Formatting of this n ote might be different from the original. IHIS chat sent to Dr Tray Quintana, regarding pt BP 190/86. Pt complaining of pain at site of neph tube. PRN pain medication given per order parameters. Pt denies any other symptoms at this time. notified and aware. [facility] 05-17-2022 Note Formatting of this n ote might be different from the original. At 0900, I rounded with Dr. Gamez and Dr. Saldana. At that time I checked Mr. Styles's vital signs. His pulse oximeter was low and he was tachypneic. Verbal order at bedside to put nasal cannula on starting at 2liters oxygen and to provide incentive spirometer. [facility] 05[facility] Note Formatting of this n ote might be different from the original. Interventional Radiology procedure completed with IR Attending Dr. Heart / Dr. Le of percutaneous right nephrostomy tube placement transplant kidney 10.2 Fr Griffin acosta Pt tolerated procedure with moderate sedation local numbing agent . Transported to inpatient after phase I recovery. Post procedure orders in place. [facility] 05[facility]16[facility] Note Formatting of this n ote might be different from the original. At 1530, I text chavad Kaitlynn Gomez MD that patient has only had 25ml urine output in matias this afternoon. [facility] 05-16-2022 Note Formatting of this n [...] with questions. Evan Byrd MD Urology, PGY-2 #[id number] [facility] Work Phone: 05-16-2022 Note Formatting of [...] will be discharge to home. [facility] 05-16-2022 Consult note Associated Order (s): IP CONSULT TO NEPHROLOGY - TRANSPLANT (MEDICINE) I saw George Styles at the [facility] on 05/16/2022. Reason for Consultation: kidney stone [...] he was given flomax and sent home. Vance better but noticed more pain and decreased [...] and recommendations. Maxi Pringle MD [facility] Work Phone: 05-16-2022 Consult note Associated Order (s): IP CONSULT TO NEPHROLOGY - TRANSPLANT (MEDICINE) I saw George Styles at the [facility] on 05/16/2022. Reason for Consultation: kidney stone [...] he was given flomax and sent home. Vance better but noticed more pain and decreased [...] states he went to his local ED [place] and he was put on Flomax and he did improve. Pt states last night he was unable to void with severe right sided abd pain. Pt states nausea and no vomiting or fevers. Pt states he went back to [place] ED at 0100 and they placed a [...] orthotopic (N/A, 04/12/2020); and kidney transplant w/o [place] nephrectomy (N/A, 04/12/2020). 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 The [place] kidneys are progressively atrophic bilaterally compared to [...] of 06/14/2020 are no longer present. The [place] distal right ureter is decompressed beyond this [...] with surgical history for renal graft and [place] right urinary drainage, as a discrete ureteroneocystostomy is not identified, and the graft may be draining via a ureteroureterostomy. Urology consultation recommended. 3. The [place] kidneys are bilaterally atrophic, with right renal sinus calcifications consistent with nonobstructing right [place] renal calculi up to 6 mm. Normal [...] PGY-3, Department of Urologic Surgery Pager #: [phone] Associated attestation - Ryan Yepez MD - [...] flomax documented in this encounter [facility] 05-16-2022 Note Formatting of this n [...] supported Trust Relationship/Rapport: care explained choices provided [facility] 05-16-2022 Note Formatting of this n ote might be different from the original. On admission to [facility], a dual RN initial assessment of skin condition was performed by Kallie Lorenzana RN and Sheri Arguelles RN. Skin Assessment: WDL Jose Score: 20 LDA Added:N Kallie Lorenzana RN [facility] 05-15-2022 Emergency department Note Report given to Kallie RN at 10 [facility] 05-15-2022 Emergency department Note Report given [...] outside hospital ED where they put a Matais and did a CT scan. It shows [...] DAY SURGERY MAIN OR KIDNEY TRANSPLANT W/O [place] NEPHRECTOMY N/A 04/12/2020 Laterality: N/A; Surgeon: LU [...] Schneider MD Resident 05/15/222030 Pt arrives from [facility] with kidney stones. Pt states he had right lower abd pain and right flank pain with blood in his urine since Thursday. Pt states he went to his local ED [place] and he was put on Flomax and he did improve. Pt states last night he was unable to void with severe right sided abd pain. Pt states nausea and no vomiting or fevers. Pt states he went back to [facility] at 0100 and they placed a matias and CT scan completed and multiple kidney stones noted. [facility] had liver and kidney transplant in 03/2020. documented in this encounter [facility] 05-15-2022 History and physical note Internal Medicine Admission History & Physical Patient: George Styles, 1970, [id number] Physician: Evan Bennett MD, PGY1, Pager #[phone], GM 4 service Date of face to [...] 04/12/2020 Laterality: N/A; Surgeon: LU Palma; Location: [facility] SAME DAY SURGERY MAIN OR KIDNEY TRANSPLANT W/O [place] NEPHRECTOMY N/A 04/12/2020 Laterality: N/A; Surgeon: LU Palma; Location: [facility] SAME DAY SURGERY MAIN [...] erythema: Skin: No jaundice or rash Neuro: agricultural commodities inspector 3-7, 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 Strength grossly [...] dilation of the calyces may represent narrowing/partial [id number] ofthe ureter and mild hydronephrosis or sequela [...] Division of Hospital Medicine [id number] [facility] Work Phone: 05-15-2022 History and physical note Internal Medicine Admission History & Physical Patient: George Styles, 1970, [id number] Physician: Evan Bennett MD, PGY1, Pager #[phone], GM 4 service Date of face to [...] DAY SURGERY MAIN OR KIDNEY TRANSPLANT W/O [place] NEPHRECTOMY N/A 04/12/2020 Laterality: N/A; Surgeon: LU Palma; Location: [facility] SAME DAY SURGERY MAIN [...] erythema: Skin: No jaundice or rash Neuro: agricultural commodities inspector 3-7, 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 Strength grossly [...] dilation of the calyces may represent narrowing/partial [id number] ofthe ureter and mild hydronephrosis or sequela [...] [id number] documented in this encounter [facility] 05-15-2022 Emergency department Note Bladder scan with Dr Villatoro at bedside, 14ml noted [facility] 05-15-2022 Consult note Associated Order (s): [...] states he went to his local ED [place] and he was put on Flomax and he did improve. Pt states last night he was unable to void with severe right sided abd pain. Pt states nausea and no vomiting or fevers. Pt states he went back to [facility] ED at 0100 and they placed a [...] orthotopic (N/A, 04/12/2020); and kidney transplant w/o [place] nephrectomy (N/A, 04/12/2020). 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 The [place] kidneys are progressively atrophic bilaterally compared to [...] of 06/14/2020 are no longer present. The [place] distal right ureter is decompressed beyond this [...] with surgical history for renal graft and [place] right urinary drainage, as a discrete ureteroneocystostomy is not identified, and the graft may be draining via a ureteroureterostomy. Urology consultation recommended. 3. The [place] kidneys are bilaterally atrophic, with right renal sinus calcifications consistent with nonobstructing right [place] renal calculi up to 6 mm. Normal [...] PGY-3, Department of Urologic Surgery Pager #: [phone] Associated attestation - Ryan Yepez MD - [...] future before surgical intervention --may continue flomax [facility] Work Phone: 05-15-2022 Emergency department Note Advised Dr Schneider concerning no urine output via matisa catheter. [facility] 05-15-2022 Physician Emergency department Note ED Attending George Styles has a past medical history of Acute renal failure, CAD (coronary artery disease), Cirrhosis, Dialysis patient, End stage renal disease (06/01/2018), Essential hypertension, benign, Hepatic encephalopathy, History of blood transfusion, and Liver cirrhosis. Presents with a chief complaint of kidney stone and diagnosed Thursday and was sent home with [facility]. He went back to that ED and [...] care. Gian Villatoro MD 05/15/222003 [facility] Work Phone: 05-15-[address] Schneider made aware of only 30 ml urine via matias since arrival to room. [facility] 05-15-2022 Physician Emergency department Note dEPARTMENT [...] DAY SURGERY MAIN OR KIDNEY TRANSPLANT W/O [place] NEPHRECTOMY N/A 04/12/2020 Laterality: N/A; Surgeon: LU [...] any incorrections. Matt Schneider MD Resident 05/15/222030 [facility] Work Phone: 05-15-2022 Emergency department Note Pt arrives from [facility] with kidney stones. Pt states he had right lower abd pain and right flank pain with blood in his urine since Thursday. Pt states he went to his local ED [place] and he was put on Flomax and he did improve. Pt states last night he was unable to void with severe right sided abd pain. Pt states nausea and no vomiting or fevers. Pt states he went back to [facility] at 0100 and they placed a matias and CT scan completed and multiple kidney stones noted. [facility] as he had liver and kidney transplant in 03/2020. [facility] 03-14-2022 History of Present illness Narrative [...] Required: No Mailing/Pickup Date: 03/17/2022 Shipping Address: [address] [place] [address] [address] Contact Info: Specialty ([place]anc[place]) [phone] Jakob [phone] [facility] [phone] David [phone] Bedside Delivery ([facility]) [phone] [facility] History of Present illness Narrative [...] Goal Progress: Satisfactory Contact Info: Specialty ([place]anci) [phone] Jakob [phone] [facility] [phone] David [phone] Bedside Delivery ([facility]) [phone] [facility]REACH: Call Information: Date [...] Home Signature Required: Yes Shipping Address: [address] [place] [address] Contact Info: Specialty ([place]) [phone] Jakob [phone] [facility] [phone] David [phone] Bedside Delivery ([facility]) [phone] documented in this encounter [facility] Evaluation + Plan note Future Appointments Appointment Date:11/22/2024 09:00:00 AM Scheduled Provider:JONATHAN Almodovar APRN, [place] X Location:[facility] Appointment Type:URO Office Visit [facility] Evaluation note Diagnosis FAYE (acute kidney injury)- Primary Acute kidney failure, unspecified Hydronephrosis due to obstruction of ureteral orifice Hydronephrosis due to obstruction of ureteral orifice FAYE (acute kidney injury) Acute kidney failure, unspecified [facility] Diagnosis Follow-up exam- Primary Unspecified follow-up examination [facility] Diagnosis Immunosuppressed status- Primary Unspecified disorder of immune mechanism Kidney replaced by transplant Liver replaced by transplant Abnormal blood chemistry Other abnormal blood chemistry High risk medication use Encounter for long-term (current) use of other medications Aftercare following organ transplant Liver transplant recipient [facility] Diagnosis Attention to nephrostomy- Primary [facility] Diagnosis Other hydronephrosis- Primary [facility] Diagnosis FAYE (acute kidney injury) Acute kidney failure, unspecified [facility] Diagnosis Other hydronephrosis- Primary -donor kidney transplant recipient Kidney replaced by transplant [facility] Diagnosis Other hydronephrosis [facility] Diagnosis 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) Encounter for screening for malignant neoplasm of prostate Special screening for malignant neoplasm of prostate [facility] Diagnosis Abnormal blood chemistry- Primary Other abnormal blood chemistry Liver transplant recipient Kidney replaced by transplant Immunosuppressed status Unspecified disorder of immune mechanism Aftercare following organ transplant [facility] Diagnosis Kidney replaced by transplant- Primary [facility] Diagnosis Immunosuppressed status- Primary Unspecified disorder of immune mechanism Kidney replaced by transplant Aftercare following organ transplant High risk medication use Encounter for long-term (current) use of other medications Other general symptoms and signs Abnormal blood chemistry Other abnormal blood chemistry Hypertension secondary to other renal disorders [facility] Diagnosis Histoplasmosis- Primary Histoplasmosis, unspecified [...] Fever Fever, unspecified [facility] Diagnosis Bilateral lower extremity edema- [...] pre-operative examination documented [facility] Diagnosis Heart failure, diastolic, acute- Primary Acute diastolic heart failure documented [facility] Diagnosis Liver lesion- Primary Other specified disorders of liver Liver transplant recipient High risk medication use Encounter for long-term (current) use of other medications Therapeutic drug monitoring Encounter for therapeutic drug monitoring Immunocompromised Unspecified immunity deficiency [facility]* Diagnosis Kidney replaced by transplant- Primary [facility] Narrative No data available for this section [facility] progress note No data available for this section [facility] reason for referral (narrative)* Consultation (Routine) - New Request Specialty Diagnoses / Procedures Referred By Deni edwards Referred To Contact Interventional Radiology Diagnoses Hydronephrosis due to obstruction of ureteral orifice Daya Saldana MD [address] [place] [address] Referral ID Status Reason Start Date Expiration Date V isits Requested Visits Authorized [id number] New Request 05/18/2022 06/12/2023 1 1 * Radiology (Emergency) - New Request Specialty Diagnoses / Procedures Referred By Deni edwards Referred To Contact Procedures US RENAL TRANSPLANT SCAN Daya Saldana MD [address] [place] [address] Referral ID Status Reason Start Date Expiration Date V isits Requested Visits Authorized [id number] New Request 05/16/2022 06/10/2023 1 1 * Consultation (Routine) - New Request Specialty Diagnoses / Procedures Referred By Contac t Referred To Contact Urology Diagnoses FAYE (acute kidney injury) Ryan Yepez MD [address] [place] [address] [address] [place] [address] Referral ID Status Reason Start Date Expiration Date V isits Requested Visits Authorized [id number] New Request 05/16/2022 06/10/2023 1 1 * MRI/CAT Scan (Routine) - New Request Specialty Diagnoses / Procedures Referred By Contac t Referred To Contact Diagnoses FAYE (acute kidney injury) Procedures CT ABDOMEN/PELVIS WITHOUT CONTRAST CHG CT SCAN,ABDOMENT AND PELVIS,W/O CONTRAST Ryan Yepez MD [address] [place] [address] [address] [place] [address] Referral ID Status Reason Start Date Expiration Date V isits Requested Visits Authorized [id number] New Request 05/16/2022 06/10/2023 1 1 * (Routine) - Pending Review Specialty Diagnoses / Procedures Referred By Contac t Referred To Contact Procedures PLATELET MONITORING PER PROTOCOL Daya Saldana MD [address] [place] [address] Referral ID Status Reason Start Date Expiration Date V isits Requested Visits Authorized [id number] Pending Review 05/15/2022 06/09/2023 1 1 * (Routine) - Pending Review Specialty Diagnoses / Procedures Referred By Contac t Referred To Contact Procedures DVT/VTE RISK ASSESSMENT Daya Saldana MD [address] [place] [address] Referral ID Status Reason Start Date Expiration Date V isits Requested Visits Authorized [id number] Pending Review 05/15/2022 06/09/2023 1 1 * (Routine) Specialty Diagnoses / Procedures Referred By Contac t Referred To Contact Evan Bennett MD [address] [facility] [address] Referral ID Status Reason Start Date Expiration Date Visits Re quested Visits Authorized * (Routine) Specialty Diagnoses / Procedures Referred By Deni t Referred To Contact Evan Bennett MD [address] [place] [address] Referral ID Status Reason Start Date Expiration Date Visits Re quested Visits Authorized [facility] for referral (narrative)* Consultation (Routine) - New Request Specialty Diagnoses / Procedures Referred By Contac t Referred To Contact Sleep Medicine Diagnoses Kevin Conroy MD [address], [place] [address] Referral ID Status Reason Start Date Expiration Date V isits Requested Visits Authorized [id number] New Request 09/10/2023 10/04/2024 1 1 * MRI/CAT Scan (Routine) - New Request Specialty Diagnoses / Procedures Referred By Contac t Referred To Contact Diagnoses Histoplasmosis Procedures CT CHEST WITHOUT CONTRAST CHG DIAGNOSTIC COMPUTED TOMOGRAPHY THORAX W/O CNTRST Kevin Prince MD [address] [place] [address] Referral ID Status Reason Start Date Expiration Date V isits Requested Visits Authorized [id number] New Request 09/10/2023 10/04/2024 1 1 * Radiology (Routine) - New Request Specialty Diagnoses / Procedures Referred By Contac t Referred To Contact Procedures US RENAL TRANSPLANT SCAN Steve Munoz MBBS [address] [place] [phone] Referral ID Status Reason Start Date Expiration Date V isits Requested Visits Authorized [id number] New Request 08/29/2023 09/22/2024 1 1 * (Routine) - New Request Specialty Diagnoses / Procedures Referred By Contac t Referred To Contact Procedures PLATELET MONITORING PER PROTOCOL Steve Munoz MBBS [address], [place] [address] Referral ID Status Reason Start Date Expiration Date V isits Requested Visits Authorized [id number] New Request 08/28/2023 09/21/2024 1 1 * (Routine) - New Request Specialty Diagnoses / Procedures Referred By Contac t Referred To Contact Procedures DVT/VTE RISK ASSESSMENT Steve Munoz MBBS [address] [place] [phone] Referral ID Status Reason Start Date Expiration Date V isits Requested Visits Authorized [id number] New Request 08/28/2023 09/21/2024 1 1 [facility] Instructions * Patient Instructions - Christin Elizabeth, DEEP-REGIONAL EDUCATION MANAGER - 10/19/2018 9:21 AM EST You should take an extra dose of the lactulose as needed so that you are having 3-4 bowel movementsdaily. You should start the chemical dependency counseling as soon as possible. If you have questions, call the transplant social work specialist Fidelina Pierson. in this encounter* Patient Instructions - Sophie Cary RN - 10/12/2018 11:09 AM EST You have been seen in the pre-transplant evaluation clinic by Dr. Restrepo and Sophie Cary. Sophie Cary is your pre-administrative services coordinator she can be reached at [phone] at any time for questions during the pre-transplant process. Your evaluation is complete pendin. Abdominal ultrasound. 2. 6 minute walk test. 3. Cardiology evaluation. Additionally, your anvil seating press operator will recommend testing to screen for coronary artery disease. This will be scheduled for you after your cardiology visit. 4. Your coordinator will be requesting record from your last dental visit, colonoscopy and EGD. 5. Please work to complete social work recommendations. Your social work specialist will be contacting you to follow up on your progress. 6. You have also been referred for a kidney transplant. An appointment will be scheduled for you sari evaluated in the kidney transplant clinic after you have satisfied requirements dictated by [employer] company. Once your testing is complete, we [...] Other Name MRN * Kibbe, Christin Magalie, DYNAMOMETER REPAIRER-REGIONAL EDUCATION MANAGER - 10/19/2018 9:00 AM EST Formatting of this note may be different from the original. History of Present Illness: Chief Complaint Patient presents with Follow-up Cirrhosis George Styles is a 48 y.o. male who presents to the [facility] today regarding his diagnosis/chief complaint(s) of Cirrhosis secondary to ETOH, with ESRD follows with Dr. Orr. Currently undergoing evaluation for liver/kidney transplant. Has been seen in transplant clinic for eval. Still undergoing pre testing. Diagnosed in April 2018. Last drink was immediately prior to hospital admission in [place] for ACLF. Hospital course notable for ARF [...] (human immunodeficiency virus infection); Hyperlipidemia; Hyperthyroidism; Hypothyroidism; FL (myocardial infarction); Migraine; DARLENE (obstructive sleep apnea); [...] kidney transplant evaluation. Pt was AOx3. Transplant Systems Development Manager role/function was explained and reviewed. The patient was informed that the results of this assessment will be shared with the referring provider and the transplant team. The patient verbalized understanding of this information. The [facility] psychosocial assessment consent form has been explained to patient and has been signed. Pt is completing this evaluation with brother (David) in the Outpatient setting. SWK educated pt on the benefits of completing/filing advanced directives and resources were offered. Pt identifies with RASTAFARI yarsanism. Pt confirms being a [place] Citizen. Pt.'s primary language is Mauritian. Pt confirms the ability to read,write, and understand Mauritian. Pt denies potential donors. Donor cards and [...] has valid license, does not regularly drive (REGIONAL EDUCATION MANAGER recommends that he not to drive). [...] related disease etoh cirrohosis April dx in [facility] for thirty days. Pt reports learning [...] as well as referred him to pre administrative services coordinator. Pt and support demonstrated moderate [...] brother David is a self employed building construction contractor. Additional support includes his other brother Tyshawn and his Mary live fifteen minutes away. Of note Mary is a farm or ranch animal caretaker for a [employer] is available to assist laborer drying department. He confirms being comfortable asking for [...] in 2010, he was employed by the [employer]. He has access to SSDI payment (SSDI starts in November) in regards to financial means pre/ post-transplant. Pt confirms (meeting bills currently, ) being able to meet daily needs. Patient's brother asking for additional information on community resources, food stamps and [employer]. Refer him to pt.'s dialysis center and the [facility]. Hereports access to Medicaid. Pt. [...] court ordered treatment after a DUI charge [facility] in [place], court ordered treatment in 2001 and in [...] by patient from his primary medical provider- [facility] patient was noted as attending an [...] He was provided with local AOD resources, [facility] AOD informational packet. Pt was referred [...] TXP Long Form Ming et al, 2008; iMng et al, Psychosomatics 2012. * Alfredito Restrepo MD - 10/12/2018 10:00 AM EST Formatting of this note may be different from the original. Pretransplant new visit Date of service: 10/12/2018 -Referring cota for today's consult: -Primary Care Provider: Zuly Bruno CC: Chief Complaint Patient presents with Liver Recipient Evaluation History of Present Illness George Styles is a 48 y.o. male who presents to the [facility] liver transplant surgery clinic today for [...] eq 3.53 cm2 PISA-MS MV [place] 1.19 m/s Doppler Measurements - Pulmonic Valve [...] processes progressing rapidly Unknown * Elisa Tiwari, FACIALIST - 10/12/2018 10:00 AM EST Timed up and go 9.9 seconds Filters Assembler Left 52.8 pounds Right 44.9 pounds Waist circ 38.5 inches * Sophie Cary, SAMI - 10/12/2018 10:00 AM EST Formatting of this note may be different from the original. Patient George Styles ([id number]), accompanied by his brother, was seen on [...] any further questions. Sophie GUERINN, RN Liver Print Cutter Etiology: ETOH HCC: No ETOH: Yes Last [...] Orr MD [address] [address] Status Reason Specialty Diagnoses / Procedures Referred By Contact Referred To Contact New Request Diagnoses Cirrhosis of liver with ascites, unspecified hepatic cirrhosis type Procedures US ABDOMEN RUQ/LIVER/GB Yovani Orr MD [address] [address] Specialty Diagnoses / Procedures Referred By Contac t Referred To Contact Diagnoses FAYE (acute kidney injury) Procedures CT ABDOMEN/PELVIS WITHOUT CONTRAST CHG CT SCAN,ABDOMENT AND PELVIS,W/O CONTRAST Central Scheduling [address] [facility] [place] [address] Referral ID Status Reason Start Date Expiration Date V isits Requested Visits Authorized [id number] Pending Review 05/16/2022 06/10/2023 1 1 Specialty Diagnoses / Procedures Referred By Contac t Referred To Contact Diagnoses Other hydronephrosis Procedures FLUORO IMAGING FOR UROLOGY Ryan Yepez MD [address] [facility] [address] [place] [address] Referral ID Status Reason Start Date Expiration Date V isits Requested Visits Authorized [id number] New Request 07/07/2022 08/01/2023 1 1 Specialty Diagnoses / Procedures Referred By Contac t Referred To Contact Procedures DIRECT ADMIT REQUEST Steve Munoz MBBS [address] [place] [address] Referral ID Status Reason Start Date Expiration Date V isits Requested Visits Authorized [id number] New Request 08/28/2023 09/21/2024 1 1 Specialty Diagnoses / Procedures Referred By Contac t Referred To Contact Radiology Diagnoses DARLENE (obstructive sleep apnea) Primary hypertension (CMS/HCC) Bilateral lower extremity edema Shortness of breath Procedures Echocardiogram 2D complete Zuly Bruno, PHOTOGRAPHY COLORIST [address] [place] [address] Referral ID Status Reason Start Date Expiration Date Visits Requested Visits Authorized [id number] Incomplete Perform Procedure 01/06/2024 07/04/2024 1 1 Specialty Diagnoses / Procedures Referred By Contac t Referred To Contact Procedures US IMAGING REGIONAL ANESTHESIA Kehinde Gutierrez MD [address] [place] [address] Referral ID Status Reason Start Date Expiration Date V isits Requested Visits Authorized [id number] New Request 01/22/2024 02/15/2025 1 1 Specialty Diagnoses / Procedures Referred By Contac t Referred To Contact Cardiovascular Medicine Diagnoses Heart failure, diastolic, acute Kelvin Pacheco MD, MBBS [address] [place] [address] Referral ID Status Reason Start Date Expiration Date V isits Requested Visits Authorized [id number] New Request 01/20/2024 02/13/2025 1 1 Specialty Diagnoses / Procedures Referred By Contac t Referred To Contact Procedures US ABDOMEN LIVER DOPPLER US ABDOMEN LIVER TRANSPLANT DOPPLER Timothy Joseph MD [address] [facility] [address] [place] [address] Referral ID Status Reason Start Date Expiration Date V isits Requested Visits Authorized [id number] New Request 01/16/2024 02/09/2025 1 1 Specialty Diagnoses / Procedures Referred By Contac t Referred To Contact Procedures DVT/VTE RISK ASSESSMENT Kelvin Pacheco MD, MBBS [address] [place], [place] [id number] Referral ID Status Reason Start Date Expiration Date V isits Requested Visits Authorized [id number] New Request 01/16/2024 02/09/2025 1 1 Specialty Diagnoses / Procedures Referred By Contac t Referred To Contact Procedures PLATELET MONITORING PER PROTOCOL Kelvin Pacheco MD, MBBS [address] [place] [address] Referral ID Status Reason Start Date Expiration Date V isits Requested Visits Authorized [id number] New Request 01/16/2024 02/09/2025 1 1 Referral ID Status Reason Start Date Expiration Date V isits Requested Visits Authorized [id number] New Request 01/16/2024 02/09/2025 1 1 Specialty Diagnoses / Procedures Referred By Contac t Referred To Contact Procedures ECG Kelvin Pacheco MD, MBBS [address] [place], [place] [id number] Referral ID Status Reason Start Date Expiration Date V isits Requested Visits Authorized [id number] New Request 01/16/2024 02/09/2025 1 1 Specialty Diagnoses / Procedures Referred By Contac t Referred To Contact Diagnoses Liver lesion Procedures MRI ABDOMEN WITH AND WITHOUT CONTRAST CHG MRI ABDOMEN W/O & W/CONTRAST MATERIAL Daisha Max DO [address] [place], [place] [id number] Referral ID Status Reason Start Date Expiration Date V isits Requested Visits Authorized [id number] New Request 06/17/2024 07/12/2025 1 1 Advance Directives Documents on File Type Date Recorded Patient Day Light Relief Operator Expl anation Advance Directives and Living Will Power of Catering Server Latest Code Status on File Code [...] Orr MD [address] [address] Status Reason Specialty Diagnoses / Procedures Referre d By Contact Referred To Contact Denied Diagnoses Alcoholic cirrhosis, unspecified whether ascites present Pre-transplant evaluation for liver transplant Procedures MRI ABDOMEN WITH CONTRAST WI MRI, ABDOMEN W/CONTRAST Yovani Orr MD [address] [address] Reason Comments Liver Recipient Evaluation Status Reason Specialty Diagnoses / Procedures Referred By Contact Referred To Contact New Request Transplant / Transplant Surgery Procedures PRE NEW PATIENT Yovani Orr MD [address] [address] Alfredito Restrepo MD [address] [place] [address] Reason Comments Reschedule Reason Comments Outside Medical Records Request Reason Comments Social Work Follow-up Reason Comments Kidney Stone Specialty Diagnoses / Procedures Referred By Contac t Referred To Contact Diagnoses Obstructing kidney stone, s/p kidney transplant 2019 Daya Saldana MD [address] [place] [address] [facility] [address] [facility] [place] [address] Referral ID Status Reason Start Date Expiration Date Visits Re quested Visits Authorized [id number] 1 1 Reason Comments Follow-up Reason Comments Kidney Recipient Follow-up Liver Recipient Follow-up Reason Comments Consult Reason Comments New Patient Hospital follow up Specialty Diagnoses / Procedures Referred By Contac t Referred To Contact Urology Diagnoses hosp fu with [address] prior Procedures NEW TO DOC/RET PATIENT Zuly Bruno, ROB [address] [place] [address] Ryan Yepez MD [address] [facility] [address] [place] [address] Referral ID Status Reason Start Date Expiration Date Visits Re quested Visits Authorized [id number] Closed 06/27/2022 07/22/2023 1 1 Specialty Diagnoses / Procedures Referred By Contac t Referred To Contact Diagnoses FAYE (acute kidney injury) Procedures CT ABDOMEN/PELVIS WITHOUT CONTRAST CHG CT SCAN,ABDOMENT AND PELVIS,W/O CONTRAST Central Scheduling [address] [place] [phone] Referral ID Status Reason Start Date Expiration Date V isits Requested Visits Authorized [id number] Pending Review 05/16/2022 06/10/2023 1 1 Reason Comments Follow-up Specialty Diagnoses / Procedures Referred By Contac t Referred To Contact Urology Diagnoses 1 week fu post NT clamp Procedures RETURN PATIENT Zuly Bruno CNP [address] [place] [address] Ryan Yepez MD [address] [facility] [address] [place] [address] Referral ID Status Reason Start Date Expiration Date Visits Requested Visits Authorized [id number] Authorized - 07/07/2022 08/01/2023 2 2 Specialty Diagnoses / Procedures Referred By Contac t Referred To Contact Diagnoses Other hydronephrosis Procedures [facility] Ryan Yepez MD [address] [facility] [address] [place] [id number] Referral ID Status Reason Start Date Expiration Date V isits Requested Visits Authorized [id number] New Request 07/07/2022 08/01/2023 1 1 Specialty Diagnoses / Procedures Referred By Contac t Referred To Contact Urology Diagnoses 1 week fu post NT clamp Procedures RETURN PATIENT Lexiesylvesterjose e Zuly, REGIONAL EDUCATION MANAGER [address] [place] [address] Ryan Yepez MD [address] [facility] [address] [place] [address] Referral ID Status Reason Start Date Expiration Date Visits Re quested Visits Authorized [id number] Closed 07/07/2022 08/01/2023 2 2 Reason Comments Liver Recipient Follow-up Reason Comments Kidney Recipient Follow-up Reason Comments Kidney Recipient Follow-up Specialty Diagnoses / Procedures Referred By Contac t Referred To Contact Diagnoses Kidney replaced by transplant Steve Munoz MBBS [address] [place] [facility] [place] [address] [facility] [address] [facility] [place] [address] Referral ID Status Reason Start Date Expiration Date Visits Re quested Visits Authorized [id number] 1 1 Specialty Diagnoses / Procedures Referred By Contac t Referred To Contact Diagnoses Pleural effusion on right PNEUMONIA- HX LIVER AND KIDNEY TRANSPLANT Kevin Prince MD [address] [place] [facility] [place] [address] [facility] [address] [facility] [place] [address] Referral ID Status Reason Start Date Expiration Date Visits Re quested Visits Authorized [id number] 1 1 Reason Comments New Patient Specialty Diagnoses / Procedures Referred By Contac t Referred To Contact Cardiovascular Medicine Diagnoses Heart failure, diastolic, acute Kelvin Pacheco MD, MBBS [address] [place] [address] Referral ID Status Reason Start Date Expiration Date Visits Requested Visits Authorized [id number] Authorized - 01/20/2024 02/13/2025 5 5 Reason Comments Liver Recipient Follow-up (unrecognized sect ion and content) No Status Records FoundNo Status Records FoundNo Status Records FoundNo Status Records FoundNo Status Records FoundNo Status Records FoundNo Status Records Found INFORMATION SOURCE (unrecogn ized section and content) DATE CREATED AUTHOR 01/07/2020 [facility] DATE CREATED AUTHOR AUTHOR'S ORGANIZ ATION 01/27/2021 [facility] DATE CREATED AUTHOR AUTHOR'S ORGANIZ ATION 05/11/2023 [facility] DATE CREATED AUTHOR AUTHOR'S ORGANIZ ATION 06/03/2024 [facility] DATE CREATED AUTHOR AUTHOR'S ORGANIZ ATION 08/25/2024 [facility] DATE CREATED AUTHOR AUTHOR'S ORGANIZ ATION 09/09/2024 [facility] DATE CREATED AUTHOR AUTHOR'S ORGANIZ ATION 09/10/2024 [facility] Care Teams (unrecognized sec tion and content) Personnel Name: ZULY BRUNO CNP Address: Address: [address] [place] [address] Contact Clerk Relationship Specialty Start Date End Date Zuly Bruno CNP PCP - General 07/19/18 Comfort Rivera [facility] [address] [place] [address] Pharmacist Pharmacist 05/16/20 Angel Carpio, [facility],PharmD Pharmacist Pharmacist 05/16/20 Te Leigh RP,PharmD Pharmacist Pharmacist 01/09/21 Contact Clerk Relationship Specialty Start Date End Date Zuly Bruno CNP PCP - General 07/19/18 Comfort Rivera, [facility] [address] [facility] [address] [place] [address] Pharmacist Pharmacist 05/16/20 Angel Carpio, [facility],PharmD Pharmacist Pharmacist 05/16/20 Te Leigh, [facility],PharmD Pharmacist Pharmacist 01/09/21 Contact Clerk Relationship Specialty Start Date End Date Zuly Bruno CNP PCP - General 07/19/18 Contact Clerk Relationship Specialty Start Date End Date Zuly Bruno CNP PCP - General 07/19/18 Contact Clerk Relationship Specialty Start Date End Date Zuly Bruno CNP PCP - General 07/19/18 Contact Clerk Relationship Specialty Start Date End Date Zuly Bruno CNP PCP - General 07/19/18 Contact Clerk Relationship Specialty Start Date End Date Zuly Bruno CNP PCP - General 07/19/18 Contact Clerk Relationship Specialty Start Date End Date Zuly Bruno CNP PCP - General 07/19/18 Contact Clerk Relationship Specialty Start Date End Date Zuly Bruno CNP PCP - General 07/19/18 Contact Clerk Relationship Specialty Start Date End Date Zuly Bruno CNP PCP - General 07/19/18 Contact Clerk Relationship Specialty Start Date End Date Zuly Bruno CNP PCP - General 07/19/18 Contact Clerk Relationship Specialty Start Date End Date Zuly Bruno CNP PCP - General 07/19/18 Contact Clerk Relationship Specialty Start Date End Date Zuly Bruno CNP PCP - General 07/19/18 Contact Clerk Relationship Specialty Start Date End Date BrianlatishaZuly tipton CNP PCP - General 07/19/18 Contact Clerk Relationship Specialty Start Date End Date BrianlatishaZuly tipton CNP PCP - General 07/19/18 Contact Clerk Relationship Specialty Start Date End Date BrianlatishaZuly tipton CNP PCP - General 07/19/18 Contact Clerk Relationship Specialty Start Date End Date BrianlatishaZuly tipton CNP PCP - General 07/19/18 Evan White DO [facility] [place] [address] Infectious Disease Infectious Disease 09/09/23 Contact Clerk Relationship Specialty Start Date End Date LexiesylvesterlatishaZuly tipton CNP PCP - General 07/19/18 Evan White DO [facility] [place] [facility] [place] [address] Infectious Disease Infectious Disease 09/09/23 Contact Clerk Relationship Specialty Start Date End Date Zuly Bruno CNP PCP - General 07/19/18 Evan White [place] [facility] [place] [address] Infectious Disease Infectious Disease 09/09/23 Contact Clerk Relationship Specialty Start Date End Date Momo Verdugo MD PCP - General Family Medicine 05/21/23 Contact Clerk Relationship Specialty Start Date End Date Momo Verdugo MD PCP - General Family Medicine 05/21/23 Contact Clerk Relationship Specialty Start Date End Date Momo Verdugo MD PCP - General Family Medicine 05/21/23 Contact Clerk Relationship Specialty Start Date End Date Zuly Bruno CNP PCP - General 07/19/18 Evan White DO [address] [place] [address] Infectious Disease Infectious Disease 09/09/23 Contact Clerk Relationship Specialty Start Date End Date Zuly Bruno CNP PCP - General 07/19/18 Evan White DO [address] [place] [address] Infectious Disease Infectious Disease 09/09/23 Contact Clerk Relationship Specialty Start Date End Date Zuly Bruno CNP PCP - General 07/19/18 Evan Whtie [place] [facility] [place] [address] Infectious Disease Infectious Disease 09/09/23 Contact Clerk Relationship Specialty Start Date End Date Zuly Bruno CNP PCP - General 07/19/18 Evan White DO [address] [place] [address] Infectious Disease Infectious Disease 09/09/23 Contact Clerk Relationship Specialty Start Date End Date Zuly Bruno CNP PCP - General 07/19/18 Evan White DO [address] [place] [address] Infectious Disease Infectious Disease 09/09/23 Contact Clerk Relationship Specialty Start Date End Date Zuly Bruno CNP PCP - General 07/19/18 Contact Clerk Relationship Specialty Start Date End Date Zuly Bruno CNP PCP - General 07/19/18 Contact Clerk Relationship Specialty Start Date End Date Zuly Bruno CNP PCP - General 07/19/18 Contact Clerk Relationship Specialty Start Date End Date Zuly Bruno CNP PCP - General 07/19/18 Contact Clerk Relationship Specialty Start Date End Date Zuly Bruno CNP PCP - General 07/19/18 Contact Clerk Relationship Specialty Start Date End Date Zuly Bruno CNP PCP - General 07/19/18 Contact Clerk Relationship Specialty Start Date End Date [...] Moderate Pain 0338 (See Alternative - Provider: Caroyln Isaac RN)0806 (See Alternative - Provider: Mel [...] - Provider: Tati Ahmadi RN) 1053 ([facility] Hold - [...] BE BASED ON THE PRIMARY CLINICAL RECORDS. [facility] provides no warranty or guarantee of the accuracy or completeness of information in this document.
[2024-09-13 07:24] LABS: Basophils Percent Auto 0.6 % (0.2-2.0); Eosinophils Absolute Auto 0.1 10^3/uL (0.0-0.7); Eosinophils Percent Auto 2.9 % (0.9-7.0); Hematocrit 47.1 % (42.0-54.0); Hemoglobin 15.2 g/dL (14.0-18.0); Immature Granulocytes Abs Auto 0.01 10^3/uL (0.00-0.03); Immature Granulocytes Pct Auto 0.2 % (0.0-0.5); Lymphocytes Absolute Auto 1.6 10^3/uL (1.2-3.8); Lymphocytes Percent Auto 32.7 % (20.5-60.0); Mean Corpuscular HGB Conc 32.3 g/dL (29.9-35.2); Mean Corpuscular Hemoglobin 28.5 pg (25.9-34.0); Mean Corpuscular Volume 88.4 fL (80.0-94.0); Mean Platelet Volume 9.3 fL (9.5-13.5); Monocytes Absolute Auto 0.4 10^3/uL (0.3-0.8); Monocytes Percent Auto 8.5 % (1.7-12.0); Neutrophils Absolute Auto 2.6 10^3/uL (1.4-6.5); Neutrophils Percent Auto 55.1 % (43.0-75.0); Platelet Count 225 10^3/uL (150-450); Red Blood Count 5.33 10^6/uL (4.70-6.10); Red Cell Distribution Width 12.5 % (11.0-15.0); White Blood Count 4.8 10^3/uL (4.0-11.0)
[2024-09-13 07:30] LABS: Creatinine Urine Random 106.55 mg/dL (20.00-300.00); Protein Creatinine Ratio Urine 0.09
[2024-09-13 07:42] LABS: Alanine Aminotransferase 20 U/L (16-63); Albumin Level 3.9 g/dL (3.4-5.0); Alkaline Phosphatase 101 U/L (46-116); Anion Gap 14.3; Aspartate Amino Transferase 19 U/L (15-37); BUN Creatinine Ratio 11.1; Bilirubin Direct 0.2 mg/dL (0.0-0.2); Calcium 9.5 mg/dL (8.5-10.1); Carbon Dioxide 26.6 mmol/L (21.0-32.0); Chloride 107 mmol/L (98-107); Estimated GFR (African America >60 (>=60 mL/min/1.73m^2); Estimated GFR (Non-African Ame 55 (>=60 mL/min/1.73m^2); Gamma Glutamyl Transpeptidase 21 U/L (15-85); Glucose 109 mg/dL (74-106); Magnesium 1.9 mg/dL (1.8-2.4); Phosphorus 2.6 mg/dL (2.6-4.7); Potassium 3.9 mmol/L (3.5-5.1); Sodium 144 mmol/L (136-145)
[2024-09-15 21:07] LABS: Tacrolimus (FK506), Blood 5.2 ng/mL (2.0-20.0)
== END 2024-09-13 06:54 | disposition home or self-care (01) ==
LOC: LAB 06:55
PROVIDERS: PCP Nurse Practitioner
DX: R79.9 Abnormal finding of blood chemistry, unspecified (principal); Z94.0 Kidney transplant status; Z94.4 Liver transplant status; Z51.81 Encounter for therapeutic drug level monitoring; Z48.298 Encounter for aftercare following other organ transplant; B39.9 Histoplasmosis, unspecified; D84.9 Immunodeficiency, unspecified
CPT/HCPCS: 36415; 80048; 80189; 80197; 82042; 82247; 82248; 82570; 82977; 83735; 84075; 84100; 84156; 84450; 84460; 85025; 86612; 87385

== ENCOUNTER 2024-09-27 06:37 | Outpatient (OUT) | payer MEDICARE, MEDICAID, SELFPAY ==
--- OUTSIDE RECORDS SUMMARY | 2024-09-27 06:46 | XMS_ITS | CCD ---
Author Organization [facility] Care Team Providers Care Clinical Data Management Manager Name Role Phone Kiana Zuly Unavailable Unavailable [...] AICHHOLZ, ZULY Primary Care Unavailable Aichholz [facility], [facility] Primary Care Provider Miguel [facility] Unavailable Shirin [facility],PharmD, Angel Unavailable Unavailab makayla Leigh [facility],PharmD, Te Unavailable Unavai lable Aicholz [facility] Primary Care Provider [phone] CRISTINA, DR BURCH Admitting Unavailable MISC, DR BURCH Consulting Unavailable AICHHOLZ, COMMUNITY ENGAGEMENT SPECIALIST ZULY Primary Care Unavailable MISC, DR BURCH Attending Unavailable MISC, DR BURCH Admitting Unavailable MISC, DR BURCH Consulting Unavailable AICHHOLZ, COMMUNITY ENGAGEMENT SPECIALIST ZULY Primary Care Unavailable MISC, DR BURCH Attending Unavailable ARCELIA PIZARRO Consulting Unavailable KE BURNHAM Attending Unavailable KE BURNHAM Admitting Unavailable DR MÓNICA JIMENEZ Consulting Unavailable AICHHOLZ, COMMUNITY ENGAGEMENT SPECIALIST ZULY Primary Care Unavailable KE BURNHAM Consulting Unavailable MISC, DR BURCH Consulting Unavailable MISC, DR BURCH Attending Unavailable AICHHOLZ, COMMUNITY ENGAGEMENT SPECIALIST ZULY Primary Care Unavailable MISC, DR BURCH Admitting Unavailable MISC, DR BURCH Consulting Unavailable MISC, DR DOCTOR Attending Unavailable AICHHOLZ, COMMUNITY ENGAGEMENT SPECIALIST ZULY Primary Care Unavailable MISC, DOCTOR Admitting Unavailable MISC, DR DOCTOR Consulting Unavailable AICHHOLZ, COMMUNITY ENGAGEMENT SPECIALIST ZULY Primary Care Unavailable MISC, DOCTOR Admitting Unavailable MISC, DR DOCTOR Attending Unavailable MELINDA, DR GEORGE Munoz Consulting Unavailable MELINDA, DR GEORGE Munoz Attending Unavailable AICHHOLZ, COMMUNITY ENGAGEMENT SPECIALIST ZULY Primary Care Unavailable MELINDA, DR GEORGE Munoz Admitting Unavailable NAUN ., KE Consulting Unavailable MIRANDA, LYNDSAY Consulting Unavailable MELINDA, DR GEORGE Munoz Consulting Unavailable NAUN ., KE Attending Unavailable NAUN ., KE Admitting Unavailable AICHHOLZ, COMMUNITY ENGAGEMENT SPECIALIST ZULY Primary Care Unavailable NAUN ., KE Consulting Unavailable GIAN HERRING Consulting Unavailable AICHHOLZ, COMMUNITY ENGAGEMENT SPECIALIST ZULY Consulting Unavailable AICHHOLZ, COMMUNITY ENGAGEMENT SPECIALIST ZULY Attending Unavailable AICHHOLZ, COMMUNITY ENGAGEMENT SPECIALIST ZULY Admitting Unavailable AICHHOLZ, COMMUNITY ENGAGEMENT SPECIALIST ZULY Primary Care Unavailable MISC, DOCTOR Consulting Unavailable MISC, DOCTOR Admitting Unavailable MISC, DOCTOR Attending Unavailable AICHHOLZ, COMMUNITY ENGAGEMENT SPECIALIST ZULY Primary Care Unavailable MISC, DR DOCTOR Consulting Unavailable MISC, DR DOCTOR Attending Unavailable MISC, DR DOCTOR Admitting Unavailable AICHHOLZ, COMMUNITY ENGAGEMENT SPECIALIST ZULY Primary Care Unavailable MISC, DOCTOR Admitting Unavailable MISC, DOCTOR Consulting Unavailable MISC, DR DOCTOR Attending Unavailable AICHHOLZ, COMMUNITY ENGAGEMENT SPECIALIST ZULY Primary Care Unavailable MISC, DOCTOR Admitting Unavailable MISC, DR DOCTOR Consulting Unavailable AICHHOLZ, COMMUNITY ENGAGEMENT SPECIALIST ZULY Primary Care Unavailable MISC, DR DOCTOR Attending Unavailable MISC, DOCTOR Admitting Unavailable MISC, DR DOCTOR Consulting Unavailable AICHHOLZ, COMMUNITY ENGAGEMENT SPECIALIST ZULY Primary Care Unavailable MISC, DR DOCTOR Attending Unavailable AICHHOLZ, COMMUNITY ENGAGEMENT SPECIALIST ZULY Consulting Unavailable AICHHOLZ, COMMUNITY ENGAGEMENT SPECIALIST ZULY Attending Unavailable AICHHOLZ, COMMUNITY ENGAGEMENT SPECIALIST ZULY Admitting Unavailable AICHHOLZ, COMMUNITY ENGAGEMENT SPECIALIST ZULY Primary Care Unavailable DR MÓNICA JIMENEZ Consulting Unavailable Aichholz [facility], Zuly Primary Care Provider Evan Whiet DO Unavailable Aichholz [facility], Zuly Primary Care Provider Evan White DO Unavailable Momo Verdugo MD Primary Care Provider [phone] Aichholz COMMUNITY ENGAGEMENT SPECIALIST, Zuly Primary Care Provider [phone] MIGUEL CARDONA Attending Unavailable AICHHOLZ, ZULY Attending [...] Propensity to adverse reactions (disorder) 8 [facility] Repository (20 sources) Shellfish-Deriv ed Products Propensity to adverse reactions to drug 9 [facility] (3 sources) Shellfish; Translations: [shellfish] Drug allergy (disorder) Anaphylaxis (disorder) [facility] Medications Current Medications Medication [...] 1 capsule by mouth once daily b pvjxakb-C-molyq acid (NEPHROCAPS) 1 MG capsule Take 1 [...] ankle pain. 0 06/12/2020 06/12/2023 Discontinued lactulose 75058 mg powder for oral solution (19 sources) [...] 06/09/2018 Active take 2 tablets by [facility] three times daily as needed midodrine [...] DAILY (Solid Organ Transplant), First dose on [facility] 01/16/24 at 0800, Until [...] nausea or vomiting Active polyethylene glycol 3350 18838 mg powder for oral solution (20 sources) [...] day(s), # 60 cap(s), Refills(s) 11, Pharmacy: [id number], 170, cm, 09/08/24 14:00:00 EDT, Height/Length [...] itraconazole Fax results to: Dr. White - [phone] Transplant [facility] - [phone] Each 09/10/2023 01/19/2024 Discontinued (Medication Reconciliation (suppress cancel msg)) Start: 09-10-2023 CUSTOM MEDICAT ION Labs to be obtained: 1- Tacrolimus level, trough - collect twice weekly until 09/24/23, then weekly until 10/08/23, them once every two weeks there after. 2- Itraconazole level - obtain once between 09/14-09/18. 3- Chem 6 - Obtain weekly while on itraconazole Fax results to: Dr. White - [phone] Trans[facility] - [phone] Each 0 09/10/2023 Active Diatrizoate (1 [...] Oral, EVERY 12 HOURS, First dose on [facility] 05/15/22 at 2215, Until Discontinued Start: 05-23-2020 [...] 01/16/2023 Discontinued take 2 tablets by [facility] in the morning magnesium oxide (Mag-Ox) 400 MG tablet Take 2 tablets by mouth in the morning. 0 Active take [facility] magnesium oxide (MAG-OX) 400 MG [...] End: 05-20-2022 Magnesium Sulfate 4 g in jogre rile water 50 ml premix IVPB melatonin [...] control servicer (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] Episodic Other aftercare (1 [...] 05-10-2020 Episodic Other aftercare (1 source) Other nursing home (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; Translations: [OTH LONGTERM 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 THERAPY] Onset: 2 Episodic Other aftercare (1 source) jail (current) use of aspirin; Translations: [LONGTERM CURRENT USE OF ASPIRIN] Onset: 2 Episodic [...] WITH AUTO DIFFon BASOPHILS ABSOLUTE AUTO 0 [facility] Basophils/100 WBC (Bld) 0.6 % 0.2 - 2.0 % [facility] Eosinophils/100 WBC (Bld) 2.9 % 0.9 - 7.0 % [facility] Erythrocyte distribution width (RBC) [Ratio] 12.5 % 11.0 - 15.0 % [facility] Hematocrit (Bld) [Volume fraction] 47.1 % 42.0 - 54.0 % [facility] Hemoglobin (Bld) [Mass/Vol] 15.2 g/dL 14.0 - 18.0 g/dL [facility] IMMATURE GRANULOCYTES ABS AUTO 0.01 [facility] Immature granulocytes/100 WBC (Bld) 0.2 % 0.0 - 0.5 % [facility] Interpretation and review of laboratory results Abnormal [facility] LYMPHOCYTES ABSOLUTE AUTO 1.6 [facility] Lymphocytes/100 WBC (Bld) 32.7 % 20.5 - 60.0 % [facility] MCH (RBC) [Entitic mass] 28.5 pg 25.9 - 34.0 pg [facility] MCHC (RBC) [Mass/Vol] 32.3 g/dL 29.9 - 35.2 g/dL [facility] MCV (RBC) [Entitic vol] 88.4 fL 80.0 - 94.0 fL [facility] MONOCYTES ABSOLUTE AUTO 0.4 [facility] Monocytes/100 WBC (Bld) 8.5 % 1.7 - 12.0 % [facility] NEUTROPHILS ABSOLUTE AUTO 2.6 [facility] Neutrophils/100 WBC (Bld) 55.1 % 43.0 - 75.0 % [facility] Platelet mean volume (Bld) [Entitic vol] 9.3 fL Low 9.5 - 13.5 fL [facility] TB EO # 0.1 [facility] TB PLT 225 [facility] TB RBC 5.33 [facility] WBC 4.8 [facility] 36on 06-01-2024 36 Regarding echo performed on 05/18/2024: MD Cinda Batres MA Please tell him the echo was ok and showed a small residual fluid around the heart. This is significant improvement from before. Follow up as planned. Patient informed and he verbalized understanding. Normal [facility] Office Visiton 05-13-2024 Follow-up visit [id number] George Styles 1970 M Date Provider Department Center 05/13/2024 [facility]-MIGUEL CARDONA BESSY Marie [facility] Family History Problem Relation Age of Onset Coronary artery disease Mother Coronary artery disease Father Family Status - Relation Status Age at Mother Father Level of Service:35214 DE OFFICE/OUTPATIENT ESTABLISHED LOW MDM 20 MIN Reason for Visit and Comments: Follow-up [052932] - Yearly follow up Normal [facility] B-TYPE NATRIURETIC PEPTIDE ( BRAIN)on 02-26-2024 Interpretation and review of laboratory results Normal [facility] Natriuretic peptide B (Bld) [Mass/Vol] 72 pg/mL 0 - 100 pg/mL [facility] Natriuretic peptide B (Bld) [Mass/Vol] 72 pg/mL Normal 0-100 [facility] Comment on above: Performed By: #### C HM7, HFP, MGO #### [facility] (DEFAULT) [address] [place] [address] CHEM 6 (LYTES, BUN CREA)on 0 02-26-2024 Anion gap [Moles/Vol] 13 mmol/L 7 - 17 mmol/L [facility] Chloride [Moles/Vol] 107 mmol/L 98 - 10 8 mmol/L [facility] CO2 [Moles/Vol] 25 mmol/L 21 - 31 mmol/L [facility] Creatinine [Mass/Vol] 1.23 mg/dL 0.70 - 1.30 mg/dL [facility] eGFR, CKD-EPI, Male 70 - PINF [facility] Comment on above: Reported eGFR is bas ed on the CKD-EPI 2020 equation using creatinine, age, and sex. Potassium [Moles/Vol] 4.2 mmol/L 3.5 - 5.0 mmol/L [facility] Sodium [Moles/Vol] 141 mmol/L 135 - 145 mmol/L [facility] Urea nitrogen [Mass/Vol] 17 mg/dL 7 - 25 mg/dL [facility] Urea nitrogen/Creatinine [Mass ratio] 14 mg[facility] Anion gap [Moles/Vol] 13 mmol/L Normal 7-17 [facility] Comment on above: Performed By: #### C Tray, CHM7, HFP, IPB, MGO #### [facility] (DEFAULT) [address] [place] [address]25 Chloride [Moles/Vol] 107 mmol/L Normal 98-108 [facility] Comment on above: Performed By: #### C A, CHM7, HFP, IPB, MGO #### [facility] (DEFAULT) [address] [place] [address] CO2 [Moles/Vol] 25 mmol/L Normal 21-31 [facility] Comment on above: Performed By: #### C A, CHM7, HFP, IPB, MGO #### [facility] (DEFAULT) [address] [place] [address]17 Creatinine [Mass/Vol] 1.23 mg/dL Normal 0.70-1.30 [facility] Comment on above: Performed By: #### C A, CHM7, HFP, IPB, MGO #### [facility] (DEFAULT) [address] [place] [address]179 GFR/1.73 sq M.predicted among non-blacks MDRD (S/P/Bld) [Vol rate/Area] 70 mL/min/{1.73_m2} Normal >=60 [facility] Comment on above: Result Comment: Repo rted eGFR is based on the CKD-EPI 2020 equation using creatinine, age, and sex. Performed By: #### C A, CHM7, HFP, IPB, MGO #### [facility] (DEFAULT) [address] [place] [address] Potassium [Moles/Vol] 4.2 mmol/L Normal 3.5-5.0 [facility] Comment on above: Performed By: #### C A, CHM7, HFP, IPB, MGO #### [facility] (DEFAULT) [address] [place] [address] 40002 Sodium [Moles/Vol] 141 mmol/L Normal 135-145 [facility] Comment on above: Performed By: #### C A, CHM7, HFP, IPB, MGO #### [facility] (DEFAULT) [address] [place] [address]30 Urea nitrogen [Mass/Vol] 17 mg/dL Normal 7-25 [facility] Comment on above: Performed By: #### C A, CHM7, HFP, IPB, MGO #### [facility] (DEFAULT) [address] [place] [address] 76640 Urea nitrogen/Creatinine [Mass ratio] 14 mg/mg Normal [facility] Comment on above: Performed By: #### C A, CHM7, HFP, IPB, MGO #### [facility] (DEFAULT) [address] [place] [address] 85103 CBC,PLATELETSon 01-23-2024 Erythrocyte distribution width (RBC) [Ratio] 14.2 % 10.9 - 14.3 % [facility] Hematocrit (Bld) [Volume fraction] 37.0 % Low 39.6 - 48.8 % [facility] Hemoglobin (Bld) [Mass/Vol] 12.0 g/dL Low 13.4 - 16.8 g/dL [facility] Interpretation and review of laboratory results Abnormal [facility] MCH (RBC) [Entitic mass] 28.6 pg 26.1 - 33.3 pg [facility] MCHC (RBC) [Mass/Vol] 32.4 g/dL 31.9 - 36.5 g/dL [facility] MCV (RBC) [Entitic vol] 88.1 fL 79.0 - 94.5 fL [facility] Platelet mean volume (Bld) [Entitic vol] 10.4 fL 8.7 - 12.3 fL [facility] Platelets (Bld) [#/Vol] 170 10*3/uL 146 - 337 K/uL [facility] RBC (Bld) [#/Vol] 4.20 10*6/uL Low [facility] WBC (Bld) [#/Vol] 3.70 10*3/uL Low 3.73 - 10. 10 K/uL [facility] Hematocrit (Bld) [Volume fraction] 37.0 % Low 39.6-48.8 [facility] Comment on above: Performed By: #### C HMJessica, TAVO, MGO #### [facility] (DEFAULT) [address] [address] Hemoglobin (Bld) [Mass/Vol] 12.0 g/dL Low 13.4-16.8 [facility] Comment on above: Performed By: #### Chinedu HMJessica, HFP, MGO #### [facility] (DEFAULT) [address] [place] [address] 57463 MCV (RBC) [Entitic vol] 88.1 fL Normal 79.0-94.5 [facility] Comment on above: Performed By: #### Chinedu HM7, HFP, MGO #### [facility] (DEFAULT) [address] [place] [address] 18381 Mean Cell Hgb 28.6 pg Normal 26.1-33.3 [facility] Comment on above: Performed By: #### C HM7, HFP, MGO #### [facility] (DEFAULT) [address] [place] [address] 54757 Mean Cell Hgb Conc 32.4 g/dL Normal 31.9-36.5 [facility] Comment on above: Performed By: #### C HM7, HFP, MGO #### [facility] (DEFAULT) [address] [place] [address]28[address] Platelet mean volume (Bld) [Entitic vol] 10.4 fL Normal 8.7-12.3 [facility] Comment on above: Performed By: #### C HM7, HFP, MGO #### [facility] (DEFAULT) [address] [place] [address] 37474 Platelets (Bld) [#/Vol] 170 10*3/uL Normal 146-337 [facility] Comment on above: Performed By: #### C HM7, HFP, MGO #### [facility] (DEFAULT) [address] [place] [address] 21403 RBC (Bld) [#/Vol] 4.20 10*6/uL Low 4.38-5.83 [facility] Comment on above: Performed By: #### C HM7, HFP, MGO #### [facility] (DEFAULT) [address] [place] [address] 64267 RBC Distribution 14.2 % Normal 10.9-14.3 [facility] Comment on above: Performed By: #### C HM7, HFP, MGO #### [facility] (DEFAULT) [address] [place] [address] 29769 WBC (Bld) [#/Vol] 3.70 10*3/uL Low 3.73-10.10 [facility] Comment on above: Performed By: #### C HM7, HFP, MGO #### [facility] (DEFAULT) [address] [place] [address] CHEM 7 (LYTES,BUN,CREA,GLUC) on 01-23-2024 Anion gap [Moles/Vol] 14 mmol/L 7 - 17 mmol/L [facility] Chloride [Moles/Vol] 105 mmol/L 98 - 10 8 mmol/L [facility] CO2 [Moles/Vol] 25 mmol/L 21 - 31 mmol/L [facility] Creatinine [Mass/Vol] 1.32 mg/dL High 0.70 - 1.30 mg/dL [facility] eGFR, CKD-EPI, Male 66 - PINF [facility] Comment on above: Reported eGFR is bas ed on the CKD-EPI 2020 equation using creatinine, age, and sex. Glucose [Mass/Vol] 94 mg/dL 70 - 99 mg/dL [facility] Osmolality Calc [Osmolality] 296 [facility] Potassium [Moles/Vol] 3.8 mmol/L 3.5 - 5.0 mmol/L [facility] Sodium [Moles/Vol] 140 mmol/L 135 - 145 mmol/L [facility] Urea nitrogen [Mass/Vol] 23 mg/dL 7 - 25 mg/dL [facility] Urea nitrogen/Creatinine [Mass ratio] 17 mg/mg [facility] Anion gap [Moles/Vol] 14 mmol/L Normal 7-17 [facility] Comment on above: Performed By: #### C JASMYNE, TAVO, MGO #### [facility] (DEFAULT) [address] [place] [address] Chloride [Moles/Vol] 105 mmol/L Normal 98-108 [facility] Comment on above: Performed By: #### Chinedu MEDLEY, HFP, MGO #### [facility] (DEFAULT) [address] [place] [address] CO2 [Moles/Vol] 25 mmol/L Normal 21-31 [facility] Comment on above: Performed By: #### Chinedu HMJessica, HFP, MGO #### [facility] (DEFAULT) [address] [place] [address]77 Creatinine [Mass/Vol] 1.32 mg/dL High 0.70-1.30 [facility] Comment on above: Performed By: #### C HM7, HFP, MGO #### [facility] (DEFAULT) [address] [place] [address] 64705 GFR/1.73 sq M.predicted among non-blacks MDRD (S/P/Bld) [Vol rate/Area] 65 mL/min/{1.73_m2} Normal >=60 [facility] Comment on above: Result Comment: Repo rted eGFR is based on the CKD-EPI 2020 equation using creatinine, age, and sex. Performed By: #### C HM7, HFP, MGO #### [facility] (DEFAULT) [address] [place] [address]5417 Glucose [Mass/Vol] 94 mg/dL Normal 70-99 [facility] Comment on above: Performed By: #### C HM7, HFP, MGO #### [facility] (DEFAULT) [address] [place] [address] 65350 Osmolality [Osmolality] 296 mosm/kg Normal 278-305 [facility] Comment on above: Performed By: #### C HM7, HFP, MGO #### [facility] (DEFAULT) [address] [place] [address] 21221 Potassium [Moles/Vol] 3.8 mmol/L Normal 3.5-5.0 [facility] Comment on above: Performed By: #### C HM7, HFP, MGO #### [facility] (DEFAULT) [address] [place] [address] 67898 Sodium [Moles/Vol] 140 mmol/L Normal 135-145 [facility] Comment on above: Performed By: #### C HM7, HFP, MGO #### [facility] (DEFAULT) [address] [place] [address] 48780 Urea nitrogen [Mass/Vol] 23 mg/dL Normal 7-25 [facility] Comment on above: Performed By: #### C HM7, TAVO, MGO #### [facility] (DEFAULT) [address] [place] [address] Urea nitrogen/Creatinine [Mass ratio] 17 mg/mg Normal [facility] Comment on above: Performed By: #### C HM7, TAVO, MGO #### [facility] (DEFAULT) [address] [place] [address] GLUCOSE POCon 01-23-2024 Glucose [Mass/Vol] 88 mg/dL 70 - 99 mg/dL [facility] POC Sample Type CAPBL [facility] Test performed at address of the patient encounter. [facility] Glucose [Mass/Vol] 191 mg/dL High 70 - 99 mg/dL [facility] Interpretation and review of laboratory results Abnormal [facility] POC Sample Type CAPBL [facility] Test performed at address of the patient encounter. [facility] HEPATIC FUNCTION PANELon Albumin [Mass/Vol] 3.9 g/dL 3.5 - 5.0 g/dL [facility] ALP [Catalytic activity/Vol] 83 U/L 32 - 126 U/L [facility] ALT [Catalytic activity/Vol] 9 U/L Low 10 - 52 U/L [facility] AST [Catalytic activity/Vol] 17 U/L 10 - 39 U/L [facility] Bilirubin [Mass/Vol] 1.6 mg/dL High NINF - 1.5 mg/dL [facility] Bilirubin.direct [Mass/Vol] 0.4 mg/dL High NINF - 0.3 mg/dL [facility] Protein [Mass/Vol] 6.6 g/dL 6.4 - 8.3 g/dL [facility] Albumin [Mass/Vol] 3.9 g/dL Normal 3.5-5.0 [facility] Comment on above: Performed By: #### C HM7, HFP, MGO #### [facility] (DEFAULT) [address] [place] [address] ALP [Catalytic activity/Vol] 83 U/L Normal 32-126 [facility] Comment on above: Performed By: #### Chinedu HM7, HFP, MGO #### [facility] (DEFAULT) [address] [place] [address] 70274 ALT [Catalytic activity/Vol] 9 U/L Low 10-52 [facility] Comment on above: Performed By: #### C HM7, HFP, MGO #### [facility] (DEFAULT) [address] [place] [address] 57667 AST [Catalytic activity/Vol] 17 U/L Normal 10-39 [facility] Comment on above: Performed By: #### Chinedu HM7, HFP, MGO #### [facility] (DEFAULT) [address] [place] [address] 14959 Bilirubin [Mass/Vol] 1.6 mg/dL High <1.5 [facility] Comment on above: Performed By: #### Chinedu HM7, HFP, MGO #### [facility] (DEFAULT) [address] [place] [address]481 Bilirubin.indirect [Mass/Vol] 0.4 mg/dL High <0.3 [facility] Comment on above: Performed By: #### Chinedu HM7, HFP, MGO #### [facility] (DEFAULT) [address] [place] [address] 69931 Protein [Mass/Vol] 6.6 g/dL Normal 6.4-8.3 [facility] Comment on above: Performed By: #### C HM7, HFP, MGO #### [facility] (DEFAULT) [address] [place] [address] 72128 ITRACONAZOLE LEVELon 024 Hydroxyitraconazole [Mass/Vol] 7.6 mcg/mL [facility] Comment on above: REFERENCE VALUE No therapeutic range established; activity and serum concentration are similar to parent drug. ADDITIONAL INFORMATION This test was developed and its performance characteristics determined by [facility] in a manner consistent with CLIA requirements. This test has not been cleared or approved by the [place].S. Food and Drug Administration. Test Performed by: [facility] [address] [id number] [place] [address] [employer]: Rosendo Bose M.D. Ph.D.; CLIA# [id number] Itraconazole [Mass/Vol] 6.0 mcg/mL [facility] Comment on above: REFERENCE VALUE >0.5 (localized infection), >1.0 (systemic infection) [facility] MAGNESIUMon 01-23-2024 Interpretation and review of laboratory results Normal [facility] Magnesium [Mass/Vol] 1.8 mg/dL 1.6 - 2 .6 mg/dL [facility] Magnesium [Mass/Vol] 1.8 mg/dL Normal 1.6-2.6 [facility] Comment on above: Performed By: #### C HM7, HFP, MGO #### [facility] (DEFAULT) [address] [place] [address] No Panel Informationon 01-23 Interpretation and review of laboratory results Abnormal [facility] TACROLIMUS LEVEL, TROUGH (DE E DRUG LEVEL)on 01-23-2024 Interpretation and review of laboratory results Normal [facility] Tacrolimus (Bld) [Mass/Vol] 7.0 ng/mL Bone Marrow Transplant: 4.0-12.0, Therapeutic: 5.0-15.0 [facility] Method performed is a chemiluminescent microparticle immunoasssay on the [employer] i2000. The range is based on experience at [facility] and users should be aware that target concentrations vary widely depending on concomitant therapy, time post-transplant, and desired degree of immunosuppression. [facility] Tacrolimus, Trough 7.0 ng/mL Normal [facility] Susana ow Transplant: 4.0-12.0, Therapeutic: 5.0-15.0 [facility] Comment on above: Order Comment: Plejoan e draw at specified interval PRIOR to dose. Do not hold dose to wait for level. Specimens batched twice per day, (M-F) and once per day weekendsMethod performed is a chemiluminescent microparticle immunoasssay on the [employer] i2000.The range is based on experience at [facility] and users should be aware that target concentrations vary widely depending on concomitant therapy, time post-transplant, and desired degree of immunosuppression. Performed By: #### C A, CHM7, HFP, IPB, MGO #### [facility] (DEFAULT) [address] [place] [address] CARDIAC RHYTHM (SCANNED)on 0 01-22-2024 [facility] CBC,PLATELETSon 01-22-2024 Erythrocyte distribution width (RBC) [Ratio] 14.1 % 10.9 - 14.3 % [facility] Hematocrit (Bld) [Volume fraction] 41.5 % 39.6 - 48.8 % [facility] Hemoglobin (Bld) [Mass/Vol] 13.3 g/dL Low 13.4 - 16.8 g/dL [facility] Interpretation and review of laboratory results Abnormal [facility] MCH (RBC) [Entitic mass] 27.8 pg 26.1 - 33.3 pg [facility] MCHC (RBC) [Mass/Vol] 32.0 g/dL 31.9 - 36.5 g/dL [facility] MCV (RBC) [Entitic vol] 86.8 fL 79.0 - 94.5 fL [facility] Platelet mean volume (Bld) [Entitic vol] 10.5 fL 8.7 - 12.3 fL [facility] Platelets (Bld) [#/Vol] 186 10*3/uL 146 - 337 K/uL [facility] RBC (Bld) [#/Vol] 4.78 10*6/uL [facility] WBC (Bld) [#/Vol] 3.74 10*3/uL 3.73 - 10. 10 K/uL [facility] Hematocrit (Bld) [Volume fraction] 41.5 % Normal 39.6-48.8 [facility] Comment on above: Performed By: #### C HM7, HFP, MGO #### [facility] (DEFAULT) [address] [place] [address] 14827 Hemoglobin (Bld) [Mass/Vol] 13.3 g/dL Low 13.4-16.8 [facility] Comment on above: Performed By: #### Chinedu HM7, HFP, MGO #### [facility] (DEFAULT) [address] [place] [address] 44681 MCV (RBC) [Entitic vol] 86.8 fL Normal 79.0-94.5 [facility] Comment on above: Performed By: #### C HM7, HFP, MGO #### [facility] (DEFAULT) [address] [place] [address] 44792 Mean Cell Hgb 27.8 pg Normal 26.1-33.3 [facility] Comment on above: Performed By: #### Chinedu HM7, HFP, MGO #### [facility] (DEFAULT) [address] [place] [address] 31494 Mean Cell Hgb Conc 32.0 g/dL Normal 31.9-36.5 [facility] Comment on above: Performed By: #### C HM7, HFP, MGO #### [facility] (DEFAULT) [address] [place] [address] 69134 Platelet mean volume (Bld) [Entitic vol] 10.5 fL Normal 8.7-12.3 [facility] Comment on above: Performed By: #### C HM7, HFP, MGO #### [facility] (DEFAULT) [address] [place] [address] 29026 Platelets (Bld) [#/Vol] 186 10*3/uL Normal 146-337 [facility] Comment on above: Performed By: #### C HM7, HFP, MGO #### [facility] (DEFAULT) [address] [place] [address] 94548 RBC (Bld) [#/Vol] 4.78 10*6/uL Normal 4.38-5.83 [facility] Comment on above: Performed By: #### C HM7, HFP, MGO #### [facility] (DEFAULT) [address] [place] [address] 11773 RBC Distribution 14.1 % Normal 10.9-14.3 [facility] Comment on above: Performed By: #### Chinedu HM7, HFP, MGO #### [facility] (DEFAULT) [address] [place] [address] 81991 WBC (Bld) [#/Vol] 3.74 10*3/uL Normal 3.73-10.10 [facility] Comment on above: Performed By: #### Chinedu HM7, HFP, MGO #### [facility] (DEFAULT) [address] [place] [address] 74047 CHEM 7 (LYTES,BUN,CREA,GLUC) on 01-22-2024 Anion gap [Moles/Vol] 13 mmol/L 7 - 17 mmol/L [facility] Chloride [Moles/Vol] 109 mmol/L High 98 - 10 8 mmol/L [facility] CO2 [Moles/Vol] 23 mmol/L 21 - 31 mmol/L [facility] Creatinine [Mass/Vol] 1.10 mg/dL 0.70 - 1.30 mg/dL [facility] eGFR, CKD-EPI, Male 81 - PINF [facility] Comment on above: Reported eGFR is bas ed on the CKD-EPI 2020 equation using creatinine, age, and sex. Glucose [Mass/Vol] 84 mg/dL 70 - 99 mg/dL [facility] Interpretation and review of laboratory results Abnormal [facility] Osmolality Calc [Osmolality] 295 [facility] Potassium [Moles/Vol] 4.0 mmol/L 3.5 - 5.0 mmol/L [facility] Sodium [Moles/Vol] 141 mmol/L 135 - 145 mmol/L [facility] Urea nitrogen [Mass/Vol] 16 mg/dL 7 - 25 mg/dL [facility] Urea nitrogen/Creatinine [Mass ratio] 15 mg/mg [facility] Anion gap [Moles/Vol] 13 mmol/L Normal 7-17 [facility] Comment on above: Performed By: #### C HM7, HFP, MGO #### [facility] (DEFAULT) [address] [place] [address] 41262 Chloride [Moles/Vol] 109 mmol/L High 98-108 [facility] Comment on above: Performed By: #### C HM7, HFP, MGO #### [facility] (DEFAULT) [address] [place] [address] 70436 CO2 [Moles/Vol] 23 mmol/L Normal 21-31 [facility] Comment on above: Performed By: #### Chinedu HM7, HFP, MGO #### [facility] (DEFAULT) [address] [place] [address] 69453 Creatinine [Mass/Vol] 1.10 mg/dL Normal 0.70-1.30 [facility] Comment on above: Performed By: #### C HM7, HFP, MGO #### [facility] (DEFAULT) [address] [place] [address] 70849 GFR/1.73 sq M.predicted among non-blacks MDRD (S/P/Bld) [Vol rate/Area] 81 mL/min/{1.73_m2} Normal >=60 [facility] Comment on above: Result Comment: Repo rted eGFR is based on the CKD-EPI 2020 equation using creatinine, age, and sex. Performed By: #### C HMJessica, HFP, MGO #### [facility] (DEFAULT) [address] [place] [address] 39160 Glucose [Mass/Vol] 84 mg/dL Normal 70-99 [facility] Comment on above: Performed By: #### C HM7, HFP, MGO #### [facility] (DEFAULT) [address] [place] [address] 13677 Osmolality [Osmolality] 295 mosm/kg Normal 278-305 [facility] Comment on above: Performed By: #### C HM7, HFP, MGO #### [facility] (DEFAULT) [address] [place] [address] 19121 Potassium [Moles/Vol] 4.0 mmol/L Normal 3.5-5.0 [facility] Comment on above: Performed By: #### C HMJessica, HFP, MGO #### [facility] (DEFAULT) [address] [place] [address] 92474 Sodium [Moles/Vol] 141 mmol/L Normal 135-145 [facility] Comment on above: Performed By: #### Chinedu HM7, HFP, MGO #### [facility] (DEFAULT) [address] [place] [address] 16776 Urea nitrogen [Mass/Vol] 16 mg/dL Normal 7-25 [facility] Comment on above: Performed By: #### C HM7, HFP, MGO #### [facility] (DEFAULT) [address] [place] [address] 63699 Urea nitrogen/Creatinine [Mass ratio] 15 mg/mg Normal [facility] Comment on above: Performed By: #### C HM7, HFP, MGO #### [facility] (DEFAULT) [address] [place] [address] 60075 MAGNESIUMon 01-22-2024 Interpretation and review of laboratory results Normal [facility] Magnesium [Mass/Vol] 2.0 mg/dL 1.6 - 2 .6 mg/dL [facility] Magnesium [Mass/Vol] 2.0 mg/dL Normal 1.6-2.6 [facility] Comment on above: Performed By: #### M MERLE CHM7 #### [facility] (DEFAULT) [address] [place] [address] 30050 No Panel Informationon 01-22 [facility] PT,INR,PTTon 01-22-2024 aPTT Coag (PPP) [Time] 29.2 s [facility] INR Coag (Bld) [Relative time] 1.1 {INR} 0.9 - 1.1 [facility] Interpretation and review of laboratory results Abnormal [facility] PT Coag (PPP) [Time] 14.3 s High [facility] aPTT Coag (Bld) [Time] 29.2 s Normal 24.0-34.3 [facility] Comment on above: Performed By: #### P TPTT #### [facility] (DEFAULT) [address] [place] [address] 26361 INR Coag (PPP) [Relative time] 1.1 {INR} Normal 0.9-1.1 [facility] Comment on above: Performed By: #### P TPTT #### [facility] (DEFAULT) [address] [place] [address] 84695 PT Coag (PPP) [Time] 14.3 s High 11.9-14.2 [facility] Comment on above: Performed By: #### P TPTT #### [facility] (DEFAULT) [address] [place] [address] 10106 TACROLIMUS LEVEL, TROUGH (DE E DRUG LEVEL)Ordered By: Sheree Jensen on 01-22-2024 Interpretation and review of laboratory results Normal [facility] Tacrolimus (Bld) [Mass/Vol] 7.9 ng/mL Bone Marrow Transplant: 4.0-12.0, Therapeutic: 5.0-15.0 [facility] Method performed is a chemiluminescent microparticle immunoasssay on the [employer] i2000. The range is based on experience at [facility] and users should be aware that target concentrations vary widely depending on concomitant therapy, time post-transplant, and desired degree of immunosuppression. [facility] TACROLIMUS LEVEL, TROUGH (DE E DRUG LEVEL)on 01-22-2024 Tacrolimus, Trough 7.9 ng/mL Normal Bone Susana ow Transplant: 4.0-12.0, Therapeutic: 5.0-15.0 [facility] Comment on above: Order Comment: Pleas e draw at specified interval PRIOR to dose. Do not hold dose to wait for level. Specimens batched twice per day, (M-F) and once per day weekendsMethod performed is a chemiluminescent microparticle immunoasssay on the [employer] i2000.The range is based on experience at [facility] and users should be aware that target concentrations vary widely depending on concomitant therapy, time post-transplant, and desired degree of immunosuppression. Performed By: #### C A, CHM7, HFP, IPB, MGO #### [facility] (DEFAULT) [address] [place] [address] TYPE AND SCREENon 01-22-2024 ABO/RH(D) TYPE Positive [facility] ABO/RH(D) TYPE Positive Normal [facility] Comment on above: Performed By: #### C HM7, HFP, MGO #### [facility] (DEFAULT) [address] [place] [address] [place] Unspecified body regionOr dered By: Unassigned Pacs on 01-22-2024 [facility] Work Phone: [place] Unspecified body regionon 01-22-2024 Radiology Study observation (narrative) [facility] CBC,PLATELETSon 01-21-2024 Erythrocyte distribution width (RBC) [Ratio] 14.0 % 10.9 - 14.3 % [facility] Hematocrit (Bld) [Volume fraction] 39.4 % Low 39.6 - 48.8 % [facility] Hemoglobin (Bld) [Mass/Vol] 12.7 g/dL Low 13.4 - 16.8 g/dL [facility] Interpretation and review of laboratory results Abnormal [facility] MCH (RBC) [Entitic mass] 28.0 pg 26.1 - 33.3 pg [facility] MCHC (RBC) [Mass/Vol] 32.2 g/dL 31.9 - 36.5 g/dL [facility] MCV (RBC) [Entitic vol] 87.0 fL 79.0 - 94.5 fL [facility] Platelet mean volume (Bld) [Entitic vol] 10.2 fL 8.7 - 12.3 fL [facility] Platelets (Bld) [#/Vol] 157 10*3/uL 146 - 337 K/uL [facility] RBC (Bld) [#/Vol] 4.53 10*6/uL [facility] WBC (Bld) [#/Vol] 3.42 10*3/uL Low 3.73 - 10. 10 K/uL [facility] Hematocrit (Bld) [Volume fraction] 39.4 % Low 39.6-48.8 [facility] Comment on above: Performed By: #### C Tray, CHM7, HFP, IPB, MGO #### [facility] (DEFAULT) [address] [place] [address] 81549 Hemoglobin (Bld) [Mass/Vol] 12.7 g/dL Low 13.4-16.8 [facility] Comment on above: Performed By: #### C Tray, CHM7, HFP, IPB, MGO #### [facility] (DEFAULT) [address] [place] [address] 03333 MCV (RBC) [Entitic vol] 87.0 fL Normal 79.0-94.5 [facility] Comment on above: Performed By: #### C A, CHM7, HFP, IPB, MGO #### [facility] (DEFAULT) [address] [place] [address] 40825 Mean Cell Hgb 28.0 pg Normal 26.1-33.3 [facility] Comment on above: Performed By: #### C A, CHM7, HFP, IPB, MGO #### [facility] (DEFAULT) [address] [place] [address] 51512 Mean Cell Hgb Conc 32.2 g/dL Normal 31.9-36.5 [facility] Comment on above: Performed By: #### C A, CHM7, HFP, IPB, MGO #### [facility] (DEFAULT) [address] [place] [address] 50052 Platelet mean volume (Bld) [Entitic vol] 10.2 fL Normal 8.7-12.3 [facility] Comment on above: Performed By: #### C A, CHM7, HFP, IPB, MGO #### [facility] (DEFAULT) [address] [place] [address] 20541 Platelets (Bld) [#/Vol] 157 10*3/uL Normal 146-337 [facility] Comment on above: Performed By: #### C A, CHM7, HFP, IPB, MGO #### [facility] (DEFAULT) [address] [place] [address] 83258 RBC (Bld) [#/Vol] 4.53 10*6/uL Normal 4.38-5.83 [facility] Comment on above: Performed By: #### C A, CHM7, HFP, IPB, MGO #### [facility] (DEFAULT) [address] [place] [address] 06401 RBC Distribution 14.0 % Normal 10.9-14.3 [facility] Comment on above: Performed By: #### C A, CHM7, HFP, IPB, MGO #### [facility] (DEFAULT) [address] [place] [address] 81631 WBC (Bld) [#/Vol] 3.42 10*3/uL Low 3.73-10.10 [facility] Comment on above: Performed By: #### C A, CHM7, HFP, IPB, MGO #### [facility] (DEFAULT) [address] [place] [address] CHEM 7 (LYTES,BUN,CREA,GLUC) on 01-21-2024 Anion gap [Moles/Vol] 12 mmol/L 7 - 17 mmol/L [facility] Chloride [Moles/Vol] 107 mmol/L 98 - 10 8 mmol/L [facility] CO2 [Moles/Vol] 26 mmol/L 21 - 31 mmol/L [facility] Creatinine [Mass/Vol] 1.11 mg/dL 0.70 - 1.30 mg/dL [facility] eGFR, CKD-EPI, Male 80 - PINF [facility] Comment on above: Reported eGFR is bas ed on the CKD-EPI 2020 equation using creatinine, age, and sex. Glucose [Mass/Vol] 93 mg/dL 70 - 99 mg/dL [facility] Osmolality Calc [Osmolality] 295 [facility] Potassium [Moles/Vol] 3.9 mmol/L 3.5 - 5.0 mmol/L [facility] Sodium [Moles/Vol] 141 mmol/L 135 - 145 mmol/L [facility] Urea nitrogen [Mass/Vol] 15 mg/dL 7 - 25 mg/dL [facility] Urea nitrogen/Creatinine [Mass ratio] 14 mg/mg [facility] Anion gap [Moles/Vol] 12 mmol/L Normal 7-17 [facility] Comment on above: Performed By: #### C HM7, HFP, MGO #### [facility] (DEFAULT) [address] [place] [address] Chloride [Moles/Vol] 107 mmol/L Normal 98-108 [facility] Comment on above: Performed By: #### C HM7, HFP, MGO #### [facility] (DEFAULT) [address] [place] [address] 14066 CO2 [Moles/Vol] 26 mmol/L Normal 21-31 [facility] Comment on above: Performed By: #### TAVO GONG, MGO #### [facility] (DEFAULT) [address] [place] [address] 39152 Creatinine [Mass/Vol] 1.11 mg/dL Normal 0.70-1.30 [facility] Comment on above: Performed By: #### Chinedu MEDLEY, TAVO, MGO #### [facility] (DEFAULT) [address] [place] [address] 28574 GFR/1.73 sq M.predicted among non-blacks MDRD (S/P/Bld) [Vol rate/Area] 80 mL/min/{1.73_m2} Normal >=60 [facility] Comment on above: Result Comment: Repo rted eGFR is based on the CKD-EPI 2020 equation using creatinine, age, and sex. Performed By: #### C TAVO MEDLEY, MGO #### [facility] (DEFAULT) [address] [place] [address] 46913 Glucose [Mass/Vol] 93 mg/dL Normal 70-99 [facility] Comment on above: Performed By: #### Chinedu MEDLEY, TAVO, MGO #### [facility] (DEFAULT) [address] [place] [address] 07340 Osmolality [Osmolality] 295 mosm/kg Normal 278-305 [facility] Comment on above: Performed By: #### Chniedu MEDLEY, TAVO, MGO #### [facility] (DEFAULT) [address] [place] [address] 61874 Potassium [Moles/Vol] 3.9 mmol/L Normal 3.5-5.0 [facility] Comment on above: Performed By: #### Chinedu MEDLEY, HFP, MGO #### [facility] (DEFAULT) [address] [place] [address] 06539 Sodium [Moles/Vol] 141 mmol/L Normal 135-145 [facility] Comment on above: Performed By: #### C HM7, HFP, MGO #### [facility] (DEFAULT) [address] [place] [address] 05066 Urea nitrogen [Mass/Vol] 15 mg/dL Normal 06-23 [facility] Comment on above: Performed By: #### C HM7, HFP, MGO #### [facility] (DEFAULT) [address] [place] [address] Urea nitrogen/Creatinine [Mass ratio] 14 mg/mg Normal [facility] Comment on above: Performed By: #### C HM7, HFP, MGO #### [facility] (DEFAULT) [address] [place] [address] 97049 Cardiac catheterization stud yOrdered By: Kelvin Donohue on 01-21-2024 Body surface area Derived from formula 2.08 m2 [facility] Work Phone: [facility] Work Phone: Cardiac catheterization stud [...] with fistula occlusion Kelvin Donohue MD, MPH Occupational Therapy Teacher of Internal Medicine. Section of Advanced Heart Failure and Transplantation Division of Cardiovascular Diseases [facility] [email or web address] [facility] INVASIVE CARDIOVASCULAR PROC EDUREon 01-21-2024 [...] with fistula occlusion Kelvin Donohue MD, MPH Occupational Therapy Teacher of Internal Medicine. Section of Advanced Heart Failure and Transplantation Division of Cardiovascular Diseases [facility] [email or web address] Table formatting from the original result was not included. Images from the original result were not included. George Styles Invasive Cardiology Cath Procedure Ordering Physician: KELVIN PACHECO Order #: [id number] Study Date: 01/20/2024 Patient Information Name MRN Description George Styles [id number] 53 y.o. male Location Name Address [place] [id number] Physicians Panel Physicians Referring Physician Case Authorizing [...] with fistula occlusion Kelvin Donohue MD, MPH Occupational Therapy Teacher of Internal Medicine. Section of Advanced Heart Failure and Transplantation Division of Cardiovascular Diseases [facility] [email or web address] Medical History Diagnosis Date Comment Source Acute renal failure CAD (coronary artery disease) Cirrhosis Dialysis patient T, Th, Sa- Started 06/01/2018 End stage renal disease 06/01/2018 Essential hypertension, benign Hepatic encephalopathy History of blood transfusion Liver cirrhosis Procedure The risks and alternatives of the procedure and sedation were explained. Informed consent was obtained. The patient was brought to the helper animal laboratory and placed on the table. The planned puncture sites were prepped and draped in the usual sterile fashion. Fluoro Dose Fluoro Dose: 0.2 Gy-cm^2 Complications Complications documented before study signed (01/21/2024 4:05 PM) No complications were associated with this study. Documented by LU Costello - 01/20/2024 11:09 AM Cardiac Cuff Cutter Attending Physician Statement and Signature I have [...] Blood O (more content not included)... Normal [facility] MAGNESIUMon 01-21-2024 Interpretation and review of laboratory results Abnormal [facility] Magnesium [Mass/Vol] 1.5 mg/dL Low 1.6 - 2 .6 mg/dL [facility] Magnesium [Mass/Vol] 1.5 mg/dL Low 1.6-2.6 [facility] Comment on above: Performed By: #### C HM7, [facility], MGO #### [facility] (DEFAULT) [address] [place] [address] No Panel Informationon 01-21 [facility] TACROLIMUS LEVEL, TROUGH (DE E DRUG LEVEL)on 01-21-2024 Interpretation and review of laboratory results Normal [facility] Tacrolimus (Bld) [Mass/Vol] 7.2 ng/mL Bone Marrow Transplant: 4.0-12.0, Therapeutic: 5.0-15.0 [facility] Method performed is a chemiluminescent microparticle immunoasssay on the [employer] i2000. The range is based on experience at [facility] and users should be aware that target concentrations vary widely depending on concomitant therapy, time post-transplant, and desired degree of immunosuppression. [facility] Tacrolimus, Trough 7.2 ng/mL Normal Bone Susana ow Transplant: 4.0-12.0, Therapeutic: 5.0-15.0 [facility] Comment on above: Order Comment: Pleas e draw at specified interval PRIOR to dose. Do not hold dose to wait for level. Specimens batched twice per day, (M-F) and once per day weekendsMethod performed is a chemiluminescent microparticle immunoasssay on the [employer] i2000.The range is based on experience at [facility] and users should be aware that target concentrations vary widely depending on concomitant therapy, time post-transplant, and desired degree of immunosuppression. Performed By: #### C A, CHM7, HFP, IPB, MGO #### [facility] (DEFAULT) [address] [place] [address] CBC,PLATELETSon 01-20-2024 Erythrocyte distribution width (RBC) [Ratio] 13.8 % 10.9 - 14.3 % [facility] Hematocrit (Bld) [Volume fraction] 38.9 % Low 39.6 - 48.8 % [facility] Hemoglobin (Bld) [Mass/Vol] 12.5 g/dL Low 13.4 - 16.8 g/dL [facility] Interpretation and review of laboratory results Abnormal [facility] MCH (RBC) [Entitic mass] 28.0 pg 26.1 - 33.3 pg [facility] MCHC (RBC) [Mass/Vol] 32.1 g/dL 31.9 - 36.5 g/dL [facility] MCV (RBC) [Entitic vol] 87.2 fL 79.0 - 94.5 fL [facility] Platelet mean volume (Bld) [Entitic vol] 10.2 fL 8.7 - 12.3 fL [facility] Platelets (Bld) [#/Vol] 166 10*3/uL 146 - 337 K/uL [facility] RBC (Bld) [#/Vol] 4.46 10*6/uL [facility] WBC (Bld) [#/Vol] 3.79 10*3/uL 3.73 - 10. 10 K/uL [facility] Hematocrit (Bld) [Volume fraction] 38.9 % Low 39.6-48.8 [facility] Comment on above: Performed By: #### C A, CHM7, HFP, IPB, MGO #### [facility] (DEFAULT) [address] [place] [address] 51870 Hemoglobin (Bld) [Mass/Vol] 12.5 g/dL Low 13.4-16.8 [facility] Comment on above: Performed By: #### C A, CHM7, HFP, IPB, MGO #### [facility] (DEFAULT) [address] [place] [address] 13225 MCV (RBC) [Entitic vol] 87.2 fL Normal 79.0-94.5 [facility] Comment on above: Performed By: #### C A, CHM7, HFP, IPB, MGO #### [facility] (DEFAULT) [address] [place] [address] 60898 Mean Cell Hgb 28.0 pg Normal 26.1-33.3 [facility] Comment on above: Performed By: #### C A, CHM7, HFP, IPB, MGO #### [facility] (DEFAULT) [address] [place] [address] 59260 Mean Cell Hgb Conc 32.1 g/dL Normal 31.9-36.5 [facility] Comment on above: Performed By: #### C A, CHM7, HFP, IPB, MGO #### [facility] (DEFAULT) [address] [place] [address] 86423 Platelet mean volume (Bld) [Entitic vol] 10.2 fL Normal 8.7-12.3 [facility] Comment on above: Performed By: #### C A, CHM7, HFP, IPB, MGO #### [facility] (DEFAULT) [address] [place] [address] 47644 Platelets (Bld) [#/Vol] 166 10*3/uL Normal 146-337 [facility] Comment on above: Performed By: #### C A, CHM7, HFP, IPB, MGO #### [facility] (DEFAULT) [address] [place] [address] 69673 RBC (Bld) [#/Vol] 4.46 10*6/uL Normal 4.38-5.83 [facility] Comment on above: Performed By: #### C A, CHM7, HFP, IPB, MGO #### [facility] (DEFAULT) [address] [place] [address] 48122 RBC Distribution 13.8 % Normal 10.9-14.3 [facility] Comment on above: Performed By: #### C A, CHM7, HFP, IPB, MGO #### [facility] (DEFAULT) [address] [place] [address] 94112 WBC (Bld) [#/Vol] 3.79 10*3/uL Normal 3.73-10.10 [facility] Comment on above: Performed By: #### C A, CHM7, HFP, IPB, MGO #### [facility] (DEFAULT) [address] [place] [address] 16964 CHEM 7 (LYTES,BUN,CREA,GLUC) on 01-20-2024 Anion gap [Moles/Vol] 12 mmol/L 7 - 17 mmol/L [facility] Chloride [Moles/Vol] 105 mmol/L 98 - 10 8 mmol/L [facility] CO2 [Moles/Vol] 28 mmol/L 21 - 31 mmol/L [facility] Creatinine [Mass/Vol] 1.12 mg/dL 0.70 - 1.30 mg/dL [facility] eGFR, CKD-EPI, Male 80 - PINF [facility] Comment on above: Reported eGFR is bas ed on the CKD-EPI 2021 equation using creatinine, age, and sex. Glucose [Mass/Vol] 88 mg/dL 70 - 99 mg/dL [facility] Osmolality Calc [Osmolality] 294 [facility] Potassium [Moles/Vol] 3.8 mmol/L 3.5 - 5.0 mmol/L [facility] Sodium [Moles/Vol] 141 mmol/L 135 - 145 mmol/L [facility] Urea nitrogen [Mass/Vol] 15 mg/dL 7 - 25 mg/dL [facility] Urea nitrogen/Creatinine [Mass ratio] 13 mg/mg [facility] Anion gap [Moles/Vol] 12 mmol/L Normal 7-17 [facility] Comment on above: Performed By: #### C HM7, HFP, MGO #### [facility] (DEFAULT) [address] [place] [address] 58829 Chloride [Moles/Vol] 105 mmol/L Normal 98-108 [facility] Comment on above: Performed By: #### Chinedu HM7, HFP, MGO #### [facility] (DEFAULT) [address] [place] [address] 69676 CO2 [Moles/Vol] 28 mmol/L Normal 21-31 [facility] Comment on above: Performed By: #### Chinedu HM7, HFP, MGO #### [facility] (DEFAULT) [address] [place] [address] 60028 Creatinine [Mass/Vol] 1.12 mg/dL Normal 0.70-1.30 [facility] Comment on above: Performed By: #### C HM7, HFP, MGO #### [facility] (DEFAULT) [address] [place] [address] 91749 GFR/1.73 sq M.predicted among non-blacks MDRD (S/P/Bld) [Vol rate/Area] 79 mL/min/{1.73_m2} Normal >=60 [facility] Comment on above: Result Comment: Repo rted eGFR is based on the CKD-EPI 2021 equation using creatinine, age, and sex. Performed By: #### C HM7, HFP, MGO #### [facility] (DEFAULT) [address] [place] [address] 98619 Glucose [Mass/Vol] 88 mg/dL Normal 70-99 [facility] Comment on above: Performed By: #### C HM7, HFP, MGO #### [facility] (DEFAULT) [address] [place] [address] 81886 Osmolality [Osmolality] 294 mosm/kg Normal 278-305 [facility] Comment on above: Performed By: #### C HM7, HFP, MGO #### [facility] (DEFAULT) [address] [place] [address] 21846 Potassium [Moles/Vol] 3.8 mmol/L Normal 3.5-5.0 [facility] Comment on above: Performed By: #### C HM7, HFP, MGO #### [facility] (DEFAULT) [address] [place] [address] 40817 Sodium [Moles/Vol] 141 mmol/L Normal 135-145 [facility] Comment on above: Performed By: #### C HM7, HFP, MGO #### [facility] (DEFAULT) [address] [place] [address] 01213 Urea nitrogen [Mass/Vol] 15 mg/dL Normal 7-25 [facility] Comment on above: Performed By: #### C HM7, HFP, MGO #### [facility] (DEFAULT) [address] [place] [address] 51048 Urea nitrogen/Creatinine [Mass ratio] 13 mg/mg Normal [facility] Comment on above: Performed By: #### C HM7, HFP, MGO #### [facility] (DEFAULT) [address] [place] [address] 08512 Cardiac catheterization stud yon 01-20-2024 [facility] Radiology Study observation (narrative) [facility] Radiology Study observation (narrative) [facility] EBV BY PCR, QUANTITATIVE,BLO ODOrdered By: Charlotte Jensen on 01-20-2024 EBV DNA ESTELITA+probe (Unsp spec) [#/Vol] NINF [facility] Interpretation and review of laboratory results Normal [facility] This test was performed using a real time PCR assay. The dynamic range for this assay is 1000-5,000,000 IU/mL. A result <1000 IU/mL does not rule out the presence of EBV DNA in quantities below the sensitivity of this assay. This test was developed and its performance characteristics determined by [facility]. It has not been cleared or approved by the FDA. The laboratory is regulated under CLIA as qualified to perform high-complexity testing. This test is used for clinical purposes. It should not be regarded as investigational or for research. [facility] HEPATIC FUNCTION PANELon Albumin [Mass/Vol] 3.7 g/dL 3.5 - 5.0 g/dL [facility] ALP [Catalytic activity/Vol] 73 U/L 32 - 126 U/L [facility] ALT [Catalytic activity/Vol] 12 U/L 10 - 52 U/L [facility] AST [Catalytic activity/Vol] 19 U/L 10 - 39 U/L [facility] Bilirubin [Mass/Vol] 2.1 mg/dL High BANNER - 1.5 mg/dL [facility] Bilirubin.direct [Mass/Vol] 0.5 mg/dL High BANNER - 0.3 mg/dL [facility] Interpretation and review of laboratory results Abnormal [facility] Protein [Mass/Vol] 6.1 g/dL Low 6.4 - 8.3 g/dL [facility] Albumin [Mass/Vol] 3.7 g/dL Normal 3.5-5.0 [facility] Comment on above: Performed By: #### C HM7, HFP, MGO #### [facility] (DEFAULT) [address] [place] [address] ALP [Catalytic activity/Vol] 73 U/L Normal 32-126 [facility] Comment on above: Performed By: #### Chinedu HM7, HFP, MGO #### [facility] (DEFAULT) [address] [place] [address] 61369 ALT [Catalytic activity/Vol] 12 U/L Normal 10-52 [facility] Comment on above: Performed By: #### Chinedu HM7, HFP, MGO #### [facility] (DEFAULT) [address] [place] [address] 41330 AST [Catalytic activity/Vol] 19 U/L Normal 10-39 [facility] Comment on above: Performed By: #### Chinedu HM7, HFP, MGO #### [facility] (DEFAULT) [address] [place] [address] 95145 Bilirubin [Mass/Vol] 2.1 mg/dL High <1.5 [facility] Comment on above: Performed By: #### Chinedu HM7, HFP, MGO #### [facility] (DEFAULT) [address] [place] [address] 03360 Bilirubin.indirect [Mass/Vol] 0.5 mg/dL High <0.3 [facility] Comment on above: Performed By: #### Chinedu HM7, HFP, MGO #### [facility] (DEFAULT) [address] [place] [address] [phone] Protein [Mass/Vol] 6.1 g/dL Low 6.4-8.3 [facility] Comment on above: Performed By: #### Chinedu HMJessica, HFP, MGO #### [facility] (DEFAULT) [address] [place] [address] 58892 ITRACONAZOLE LEVELon 024 Hydroxyitraconazole 7.6 mcg/mL Normal [facility] Comment on above: Order Comment: Dilan gregory draw level at specified interval PRIOR to dose. Result Comment: REFERENCE VALUE No therapeutic range established; activity and serum concentration are similar to parent drug. ADDITIONAL INFORMATION This test was developed and its performance characteristics determined by [facility] in a manner consistent with CLIA requirements. This test has not been cleared or approved by the U.S. Food and Drug Administration. Test Performed by: [facility] [address] [place] [address] [employer]: Rosendo Bose M.D. Ph.D.; CLIA# [id number] Performed By: #### Chinedu Feliz, NATHANIEL, TAVO, IPBerlin, MGO #### [facility] (DEFAULT) [address] [place] [address] Itraconazole 6.0 mcg/mL Normal [facility] Comment on above: Order Comment: Pleas e draw level at specified interval PRIOR to dose. Result Comment: REFERENCE VALUE >0.5 (localized infection), >1.0 (systemic infection) Performed By: #### Chinedu Feliz, CHM7, HFP, IPB, MGO #### [facility] (DEFAULT) [address] [address] MAGNESIUMon 01-20-2024 Interpretation and review of laboratory results Normal [facility] Magnesium [Mass/Vol] 1.6 mg/dL 1.6 - 2 .6 mg/dL [facility] Magnesium [Mass/Vol] 1.6 mg/dL Normal 1.6-2.6 [facility] Comment on above: Performed By: #### Chinedu HM7, HFP, MGO #### [facility] (DEFAULT) [address] [phone] No Panel Informationon 01-20 [facility] POCT CO-OXIMETRYon Hemoglobin (Bld) [Mass/Vol] 12.8 g/dL Low 13.4 - 16.8 g/dL [facility] Interpretation and review of laboratory results Abnormal [facility] Oxyhemoglobin 69 % Low 94 - 98 % [facility] Ordering physician notified. Test performed at address of the patient encounter. [facility] Hemoglobin (Bld) [Mass/Vol] 13.3 g/dL Low 13.4 - 16.8 g/dL [facility] Interpretation and review of laboratory results Abnormal [facility] Oxyhemoglobin 69 % Low 94 - 98 % [facility] Ordering physician notified. Test performed at address of the patient encounter. [facility] PT,INR,PTTon 01-20-2024 aPTT Coag (PPP) [Time] 30.6 s [facility] INR Coag (Bld) [Relative time] 1.2 {INR} High 0.9 - 1.1 [facility] Interpretation and review of laboratory results Abnormal [facility] PT Coag (PPP) [Time] 15.5 s High [facility] aPTT Coag (Bld) [Time] 30.6 s Normal 24.0-34.3 [facility] Comment on above: Performed By: #### C A, CHM7, HFP, IPB, MGO #### [facility] (DEFAULT) [address] [place] [address]673 INR Coag (PPP) [Relative time] 1.2 {INR} High 0.9-1.1 [facility] Comment on above: Performed By: #### C A, CHM7, HFP, IPB, MGO #### [facility] (DEFAULT) [address] [place] [address] PT Coag (PPP) [Time] 15.5 s High 11.9-14.2 [facility] Comment on above: Performed By: #### C A, CHM7, HFP, IPB, MGO #### [facility] (DEFAULT) [address] [place] [address] 42575 TACROLIMUS LEVEL, TROUGH (DE E DRUG LEVEL)Ordered By: Yanira Marcum on 01-20-2024 Interpretation and review of laboratory results Normal [facility] Tacrolimus (Bld) [Mass/Vol] 7.7 ng/mL Bone Marrow Transplant: 4.0-12.0, Therapeutic: 5.0-15.0 [facility] Method performed is a chemiluminescent microparticle immunoasssay on the [employer] i2000. The range is based on experience at [facility] and users should be aware that target concentrations vary widely depending on concomitant therapy, time post-transplant, and desired degree of immunosuppression. [facility] TACROLIMUS LEVEL, TROUGH (DE E DRUG LEVEL)on 01-20-2024 Tacrolimus, Trough 7.7 ng/mL Normal Bone Susana ow Transplant: 4.0-12.0, Therapeutic: 5.0-15.0 [facility] Comment on above: Order Comment: Pleas e draw at specified interval PRIOR to dose. Do not hold dose to wait for level. Specimens batched twice per day, (M-F) and once per day weekendsMethod performed is a chemiluminescent microparticle immunoasssay on the [employer] i2000.The range is based on experience at [facility] and users should be aware that target concentrations vary widely depending on concomitant therapy, time post-transplant, and desired degree of immunosuppression. Performed By: #### C A, CHM7, HFP, IPB, MGO #### [facility] (DEFAULT) [address] [address] CBC,PLATELETSon 01-19-2024 Erythrocyte distribution width (RBC) [Ratio] 13.9 % 10.9 - 14.3 % [facility] Hematocrit (Bld) [Volume fraction] 37.5 % Low 39.6 - 48.8 % [facility] Hemoglobin (Bld) [Mass/Vol] 12.1 g/dL Low 13.4 - 16.8 g/dL [facility] Interpretation and review of laboratory results Abnormal [facility] MCH (RBC) [Entitic mass] 28.3 pg 26.1 - 33.3 pg [facility] MCHC (RBC) [Mass/Vol] 32.3 g/dL 31.9 - 36.5 g/dL [facility] MCV (RBC) [Entitic vol] 87.8 fL 79.0 - 94.5 fL [facility] Platelet mean volume (Bld) [Entitic vol] 10.4 fL 8.7 - 12.3 fL [facility] Platelets (Bld) [#/Vol] 163 10*3/uL 146 - 337 K/uL [facility] RBC (Bld) [#/Vol] 4.27 10*6/uL Low [facility] WBC (Bld) [#/Vol] 3.69 10*3/uL Low 3.73 - 10. 10 K/uL [facility] Hematocrit (Bld) [Volume fraction] 37.5 % Low 39.6-48.8 [facility] Comment on above: Performed By: #### C Tray, CHM7, HFP, IPB, MGO #### [facility] (DEFAULT) [address] [place] [address] 40575 Hemoglobin (Bld) [Mass/Vol] 12.1 g/dL Low 13.4-16.8 [facility] Comment on above: Performed By: #### C Tray, CHM7, HFP, IPB, MGO #### [facility] (DEFAULT) [address] [place] [address] 91120 MCV (RBC) [Entitic vol] 87.8 fL Normal 79.0-94.5 [facility] Comment on above: Performed By: #### C Tray, CHM7, HFP, IPB, MGO #### [facility] (DEFAULT) [address] [place] [address] 30689 Mean Cell Hgb 28.3 pg Normal 26.1-33.3 [facility] Comment on above: Performed By: #### C A, CHM7, HFP, IPB, MGO #### [facility] (DEFAULT) [address] [place] [address] 31261 Mean Cell Hgb Conc 32.3 g/dL Normal 31.9-36.5 [facility] Comment on above: Performed By: #### C A, CHM7, HFP, IPB, MGO #### [facility] (DEFAULT) [address] [place] [address] 61896 Platelet mean volume (Bld) [Entitic vol] 10.4 fL Normal 8.7-12.3 [facility] Comment on above: Performed By: #### C A, CHM7, HFP, IPB, MGO #### [facility] (DEFAULT) [address] [place] [address] 06175 Platelets (Bld) [#/Vol] 163 10*3/uL Normal 146-337 [facility] Comment on above: Performed By: #### C A, CHM7, HFP, IPB, MGO #### [facility] (DEFAULT) [address] [place] [address] 89384 RBC (Bld) [#/Vol] 4.27 10*6/uL Low 4.38-5.83 [facility] Comment on above: Performed By: #### C A, CHM7, HFP, IPB, MGO #### [facility] (DEFAULT) [address] [place] [address] 55160 RBC Distribution 13.9 % Normal 10.9-14.3 [facility] Comment on above: Performed By: #### C A, CHM7, HFP, IPB, MGO #### [facility] (DEFAULT) [address] [place] [address] 90921 WBC (Bld) [#/Vol] 3.69 10*3/uL Low 3.73-10.10 [facility] Comment on above: Performed By: #### C A, CHM7, HFP, IPB, MGO #### [facility] (DEFAULT) [address] [place] [address] 04383 CHEM 7 (LYTES,BUN,CREA,GLUC) on 01-19-2024 Anion gap [Moles/Vol] 14 mmol/L 7 - 17 mmol/L [facility] Chloride [Moles/Vol] 106 mmol/L 98 - 10 8 mmol/L [facility] CO2 [Moles/Vol] 24 mmol/L 21 - 31 mmol/L [facility] Creatinine [Mass/Vol] 1.13 mg/dL 0.70 - 1.30 mg/dL [facility] eGFR, CKD-EPI, Male 79 - PINF [facility] Comment on above: Reported eGFR is bas ed on the CKD-EPI 2020 equation using creatinine, age, and sex. Glucose [Mass/Vol] 86 mg/dL 70 - 99 mg/dL [facility] Osmolality Calc [Osmolality] 293 [facility] Potassium [Moles/Vol] 3.8 mmol/L 3.5 - 5.0 mmol/L [facility] Sodium [Moles/Vol] 140 mmol/L 135 - 145 mmol/L [facility] Urea nitrogen [Mass/Vol] 16 mg/dL 7 - 25 mg/dL [facility] Urea nitrogen/Creatinine [Mass ratio] 14 mg/mg [facility] Anion gap [Moles/Vol] 14 mmol/L Normal 7-17 [facility] Comment on above: Performed By: #### C Tray, CHM7, HFP, IPB, MGO #### [facility] (DEFAULT) [address] [place] [address] 46221 Chloride [Moles/Vol] 106 mmol/L Normal 98-108 [facility] Comment on above: Performed By: #### C Tray, CHM7, HFP, IPB, MGO #### [facility] (DEFAULT) [address] [place] [address] CO2 [Moles/Vol] 24 mmol/L Normal 21-31 [facility] Comment on above: Performed By: #### Chinedu Feliz, CHM7, HFP, IPB, MGO #### [facility] (DEFAULT) [address] [place] [address] 93767 Creatinine [Mass/Vol] 1.13 mg/dL Normal 0.70-1.30 [facility] Comment on above: Performed By: #### C A, CHM7, HFP, IPB, MGO #### [facility] (DEFAULT) [address] [place] [address] 33838 GFR/1.73 sq M.predicted among non-blacks MDRD (S/P/Bld) [Vol rate/Area] 78 mL/min/{1.73_m2} Normal >=60 [facility] Comment on above: Result Comment: Repo rted eGFR is based on the CKD-EPI 2020 equation using creatinine, age, and sex. Performed By: #### C A, CHM7, HFP, IPB, MGO #### [facility] (DEFAULT) [address] [place] [address] 24564 Glucose [Mass/Vol] 86 mg/dL Normal 70-99 [facility] Comment on above: Performed By: #### C A, CHM7, HFP, IPB, MGO #### [facility] (DEFAULT) [address] [place] [address] 81824 Osmolality [Osmolality] 293 mosm/kg Normal 278-305 [facility] Comment on above: Performed By: #### C A, CHM7, HFP, IPB, MGO #### [facility] (DEFAULT) [address] [place] [address] 42923 Potassium [Moles/Vol] 3.8 mmol/L Normal 3.5-5.0 [facility] Comment on above: Performed By: #### C A, CHM7, HFP, IPB, MGO #### [facility] (DEFAULT) [address] [place] [address] 43383 Sodium [Moles/Vol] 140 mmol/L Normal 135-145 [facility] Comment on above: Performed By: #### C A, CHM7, HFP, IPB, MGO #### [facility] (DEFAULT) [address] [place] [address] Urea nitrogen [Mass/Vol] 16 mg/dL Normal 7-25 [facility] Comment on above: Performed By: #### C A, CHM7, HFP, IPB, MGO #### [facility] (DEFAULT) [address] [place] [address] Urea nitrogen/Creatinine [Mass ratio] 14 mg/mg Normal [facility] Comment on above: Performed By: #### C A, CHM7, HFP, IPB, MGO #### [facility] (DEFAULT) [address] [place] [address] 53696 EBV BY PCR, QUANTITATIVE,BLO ODon 01-19-2024 Ebv By Pcr, Quant, Blood <1000 Normal <1000 [facility] Comment on above: Order Comment: This test was performed using a real time PCR assay. The dynamic range for this assay is 1000-5,000,000 IU/mL. A result <1000 IU/mL does not rule out the presence of EBV DNA in quantities below the sensitivity of this assay. This test was developed and its performance characteristics determined by [facility]. It has not been cleared or approved by the FDA. The laboratory is regulated under CLIA as qualified to perform high-complexity testing. This test is used for clinical purposes. It should not be regarded as investigational or for research. Performed By: #### C A, CHM7, HFP, IPB, MGO #### [facility] (DEFAULT) [address] [place] [address] 22342 HISTOPLASMA AND BLASTOMYCES ANTIGEN, ENZYME IMMUNOASSAY, SERMon 01-19-2024 Histoplasma/Blastomyce s Ag Result Not detected Not Detected [facility] Comment on above: No antigen from Hist oplasma or Blastomyces detected. False negative results may occur depending on extent of disease, and/or site of infection. Repeat testing on a new specimen if clinically indicated. Histoplasma/Blastomyce s Ag Value Not detected ng/mL [facility] Comment on above: ADDITIONAL INFORMATION This test was developed and its performance characteristics determined by [facility] in a manner consistent with CLIA requirements. This test has not been cleared or approved by the U.S. Food and Drug Administration. Test Performed by: [facility] [address] [place] [address] [employer]: Rosendo Bose M.D. Ph.D.; CLIA# [id number] [facility] MAGNESIUMon 01-19-2024 Interpretation and review of laboratory results Normal [facility] Magnesium [Mass/Vol] 1.8 mg/dL 1.6 - 2 .6 mg/dL [facility] Magnesium [Mass/Vol] 1.8 mg/dL Normal 1.6-2.6 [facility] Comment on above: Performed By: #### C A, CHM7, HFP, IPB, MGO #### [facility] (DEFAULT) [address] [place] [address] No Panel Informationon 01-19 [facility] TACROLIMUS LEVEL, TROUGH (DE E DRUG LEVEL)Ordered By: Raymundo Mehta on 01-19-2024 Interpretation and review of laboratory results Normal [facility] Tacrolimus (Bld) [Mass/Vol] 6.8 ng/mL Bone Marrow Transplant: 4.0-12.0, Therapeutic: 5.0-15.0 [facility] Method performed is a chemiluminescent microparticle immunoasssay on the [employer] i2000. The range is based on experience at [facility] and users should be aware that target concentrations vary widely depending on concomitant therapy, time post-transplant, and desired degree of immunosuppression. [facility] TACROLIMUS LEVEL, TROUGH (DE E DRUG LEVEL)on 01-19-2024 Tacrolimus, Trough 6.8 ng/mL Normal Bone Susana ow Transplant: 4.0-12.0, Therapeutic: 5.0-15.0 [facility] Comment on above: Order Comment: Pleas e draw at specified interval PRIOR to dose. Do not hold dose to wait for level. Specimens batched twice per day, (M-F) and once per day weekendsMethod performed is a chemiluminescent microparticle immunoasssay on the [employer] i2000.The range is based on experience at [facility] and users should be aware that target concentrations vary widely depending on concomitant therapy, time post-transplant, and desired degree of immunosuppression. Performed By: #### C HM7, HFP, MGO #### [facility] (DEFAULT) [address] [place] [address] US AV fistulaOrdered By: Diana Reyes on 01-19-2024 [facility] Work Phone: US AV fistulaon 01-19-2024 Radiology Study observation (narrative) [facility] AFP TUMOR MARKEROrdered By: Francisca Alaniz on 01-18-2024 AFP.tumor marker [Mass/Vol] ng/mL NINF - 8.1 ng/mL [facility] Comment on above: This test was perfor med on the [email or web address] Immunoassay platform by [employer] which is a two-site sandwich chemiluminescent immunoassay. It is important to note that assays using different manufacturers and/or methods may not be comparable. Interpretation and review of laboratory results Normal [facility] CBC,PLATELETSon 01-18-2024 Erythrocyte distribution width (RBC) [Ratio] 13.9 % 10.9 - 14.3 % [facility] Hematocrit (Bld) [Volume fraction] 38.4 % Low 39.6 - 48.8 % [facility] Hemoglobin (Bld) [Mass/Vol] 12.1 g/dL Low 13.4 - 16.8 g/dL [facility] Interpretation and review of laboratory results Abnormal [facility] MCH (RBC) [Entitic mass] 27.8 pg 26.1 - 33.3 pg [facility] MCHC (RBC) [Mass/Vol] 31.5 g/dL Low 31.9 - 36.5 g/dL [facility] MCV (RBC) [Entitic vol] 88.3 fL 79.0 - 94.5 fL [facility] Platelet mean volume (Bld) [Entitic vol] 10.4 fL 8.7 - 12.3 fL [facility] Platelets (Bld) [#/Vol] 183 10*3/uL 146 - 337 K/uL [facility] RBC (Bld) [#/Vol] 4.35 10*6/uL Low [facility] WBC (Bld) [#/Vol] 3.66 10*3/uL Low 3.73 - 10. 10 K/uL [facility] Hematocrit (Bld) [Volume fraction] 38.4 % Low 39.6-48.8 [facility] Comment on above: Performed By: #### C Tray, CHM7, HFP, IPB, MGO #### [facility] (DEFAULT) [address] [place] [address] 42870 Hemoglobin (Bld) [Mass/Vol] 12.1 g/dL Low 13.4-16.8 [facility] Comment on above: Performed By: #### C Tray, CHM7, HFP, IPB, MGO #### [facility] (DEFAULT) [address] [place] [address] 33214 MCV (RBC) [Entitic vol] 88.3 fL Normal 79.0-94.5 [facility] Comment on above: Performed By: #### C Tray, CHM7, HFP, IPB, MGO #### [facility] (DEFAULT) [address] [place] [address] 60521 Mean Cell Hgb 27.8 pg Normal 26.1-33.3 [facility] Comment on above: Performed By: #### C A, CHM7, HFP, IPB, MGO #### [facility] (DEFAULT) [address] [place] [address] 28179 Mean Cell Hgb Conc 31.5 g/dL Low 31.9-36.5 [facility] Comment on above: Performed By: #### C A, CHM7, HFP, IPB, MGO #### [facility] (DEFAULT) [address] [place] [address] 09711 Platelet mean volume (Bld) [Entitic vol] 10.4 fL Normal 8.7-12.3 [facility] Comment on above: Performed By: #### C A, CHM7, HFP, IPB, MGO #### [facility] (DEFAULT) [address] [place] [address] 95401 Platelets (Bld) [#/Vol] 183 10*3/uL Normal 146-337 [facility] Comment on above: Performed By: #### C A, CHM7, HFP, IPB, MGO #### [facility] (DEFAULT) [address] [place] [address] 50679 RBC (Bld) [#/Vol] 4.35 10*6/uL Low 4.38-5.83 [facility] Comment on above: Performed By: #### C A, CHM7, HFP, IPB, MGO #### [facility] (DEFAULT) [address] [place] [address] 68690 RBC Distribution 13.9 % Normal 10.9-14.3 [facility] Comment on above: Performed By: #### C A, CHM7, HFP, IPB, MGO #### [facility] (DEFAULT) [address] [place] [address] 34031 WBC (Bld) [#/Vol] 3.66 10*3/uL Low 3.73-10.10 [facility] Comment on above: Performed By: #### C A, CHM7, HFP, IPB, MGO #### [facility] (DEFAULT) [address] [place] [address] 03299 CHEM 7 (LYTES,BUN,CREA,GLUC) on 01-18-2024 Anion gap [Moles/Vol] 11 mmol/L 7 - 17 mmol/L [facility] Chloride [Moles/Vol] 108 mmol/L 98 - 10 8 mmol/L [facility] CO2 [Moles/Vol] 26 mmol/L 21 - 31 mmol/L [facility] Creatinine [Mass/Vol] 1.00 mg/dL 0.70 - 1.30 mg/dL [facility] eGFR, CKD-EPI, Male - PINF [facility] Comment on above: Reported eGFR is bas ed on the CKD-EPI 2020 equation using creatinine, age, and sex. Glucose [Mass/Vol] 89 mg/dL 70 - 99 mg/dL [facility] Osmolality Calc [Osmolality] 295 [facility] Potassium [Moles/Vol] 3.9 mmol/L 3.5 - 5.0 mmol/L [facility] Sodium [Moles/Vol] 141 mmol/L 135 - 145 mmol/L [facility] Urea nitrogen [Mass/Vol] 16 mg/dL 7 - 25 mg/dL [facility] Urea nitrogen/Creatinine [Mass ratio] 16 mg/mg [facility] Anion gap [Moles/Vol] 11 mmol/L Normal 7-17 [facility] Comment on above: Performed By: #### C HM7, HFP, MGO #### [facility] (DEFAULT) [address] [place] [address] 13448 Chloride [Moles/Vol] 108 mmol/L Normal 98-108 [facility] Comment on above: Performed By: #### C HM7, HFP, MGO #### [facility] (DEFAULT) [address] [place] [address] CO2 [Moles/Vol] 26 mmol/L Normal 21-31 [facility] Comment on above: Performed By: #### C HM7, HFP, MGO #### [facility] (DEFAULT) [address] [place] [address] Creatinine [Mass/Vol] 1.00 mg/dL Normal 0.70-1.30 [facility] Comment on above: Performed By: #### C HM7, HFP, MGO #### [facility] (DEFAULT) [address] [place] [address] 99919 eGFR, CKD-EPI, Male > Normal >=60 [facility] Comment on above: Result Comment: Repo rted eGFR is based on the CKD-EPI 2020 equation using creatinine, age, and sex. Performed By: #### C HM7, HFP, MGO #### [facility] (DEFAULT) [address] [place] [address] 67227 Glucose [Mass/Vol] 89 mg/dL Normal 70-99 [facility] Comment on above: Performed By: #### C HM7, HFP, MGO #### [facility] (DEFAULT) [address] [place] [address] 14148 Osmolality [Osmolality] 295 mosm/kg Normal 278-305 [facility] Comment on above: Performed By: #### C HM7, HFP, MGO #### [facility] (DEFAULT) [address] [place] [address] 78647 Potassium [Moles/Vol] 3.9 mmol/L Normal 3.5-5.0 [facility] Comment on above: Performed By: #### C HM7, HFP, MGO #### [facility] (DEFAULT) [address] [place] [address] 67477 Sodium [Moles/Vol] 141 mmol/L Normal 135-145 [facility] Comment on above: Performed By: #### C HM7, HFP, MGO #### [facility] (DEFAULT) [address] [place] [address] 72853 Urea nitrogen [Mass/Vol] 16 mg/dL Normal 7-25 [facility] Comment on above: Performed By: #### C HM7, HFP, MGO #### [facility] (DEFAULT) [address] [place] [address] 79929 Urea nitrogen/Creatinine [Mass ratio] 16 mg/mg Normal [facility] Comment on above: Performed By: #### C HM7, HFP, MGO #### [facility] (DEFAULT) [address] [place] [address] 14932 Cardiac echo study Procedure Ordered By: Gian Carlos on 01-18-2024 Ao ASC index 1.63 cm[facility] Work Phone: [phone] Ao peak meliton 1.46 m/s [facility] Work Phone: [phone] Ao SOV index 1.56 cm/m[facility] Work Phone: [phone] Ao STJ index 1.25 cm/m2 [facility] Work Phone: [phone] Ao VTI 35.[address] [facility] Work Phone: [phone] Ascending aorta 3.39 cm [facility] Work Phone: [phone] AV LVOT peak gradient 4 mmHg [facility] Work Phone: [phone] [facility]: [phone] AV peak gradient 9 mmHG [facility]: [phone] AV valve area 3.09 cm2 [facility] Work Phone: [phone] AV Velocity Ratio 0.73 [facility] Work Phone: [phone] VEGA (continuity Vmax) 3.01 cm2 [facility] Work Phone: [phone] VGEA (continuity VTI) 3.09 cm2 [facility] Work Phone: [phone] VEGA index (continuity Vmax) 1.45 m/s [facility] Work Phone: [phone] VEGA index (continuity VTI) 1.49 cm2/m2 [facility] Work Phone: [phone] Avg e' pk meliton 0.07 m/s [facility] Work Phone: [phone] Avg E/e' ratio 19.45 [facility] Work Phone: [phone] Body surface area Derived from formula 2.08 m2 [facility] Work Phone: [phone] BP EF 62 % [facility] Work Phone: [phone] DI (Vmax) 0.[address] [facility] Work Phone: [phone] DI (VTI) 0.74 m/[address] [facility] Work Phone: [phone] E wave decelartion time 180.[address] [facility] Work Phone: [phone] e' lateral pk meliton 0.0789 m/s [facility]: [phone] e' lateral pk meliton 0.08 m/s [facility] Work Phone: [phone] e' septal pk meliton 0.0653 m/s [facility]: [phone] e' septal pk meliton 0.07 m/s [facility] Work Phone: [phone] E/A ratio 2.67 [facility] Work Phone: [phone] E/e' lateral [facility] 17.62 [facility] Work Phone: [phone] E/e' septal ratio 21.29 [facility] Work Phone[facility] [phone] EF SP 2CH [address] Work Phone: [phone] EF SP 4CH [address] [facility] Work Phone: [phone] FS 28 % 28 - 44 % [facility] Work Phone: [phone] IVC ostium 2.30 cm [facility] Work Phone: IVS 1.11 cm [facility] Work Phone: [phone] LA AREA 2CH 24.[address] [facility] Work Phone: LA area 4CH 20.[address] [facility] Work Phone: [phone] LA ESV BP (MOD) 64 mL [facility] Work Phone: [phone] LA ESV BP (MOD) index 31 mL/m2 [facility] Work Phone: [phone] LA ESV SP 2CH (MOD) 76 mL [facility] Work Phone: [phone] LA ESV SP 4CH (MOD) 53 mL [facility] Work Phone: [phone] LV EDV BP [address] [facility] Work Phone: [phone] LV EDV SP 2CH [address] [facility] Work Phone: [phone] LV EDV SP 4CH [address] [facility] Work Phone: [phone] LV ESV BP [address] [facility] Work Phone: [phone] LV ESV SP 2CH [address] [facility] Work Phone: [phone] LV ESV SP 4CH [address] [facility] Work Phone: [phone] LV mass 254.73 g [facility] Work Phone: [phone] LV Mass Index 122.5 g/m2 [facility] Work Phone: [phone] LV RWT 0.42 [facility] Work Phone: [phone] LV stroke volume BP (ml) [address] Work Phone: [phone] LV stroke volume index BP 53.37 mL/m2 [facility] Work Phone: [phone] LVIDD 5.53 cm [facility] Work Phone: [phone] LVIDS 3.97 cm [facility] Work Phone: [phone] LVOT area 4.[address] Work Phone: [phone] LVOT diameter 2.[address] Work Phone: [phone] LVOT peak meliton 1.06 m/s [facility] Work Phone: [phone] LVOT peak VTI 26.61 cm [facility] Work Phone: [phone] LVOT stroke volume 111 cm3 [facility] Work Phone: [phone] LVOT stroke volume index 53.13 ml/m2 [facility] Work Phone: [phone] Mr max meliton 4.21 m/s [facility] Work Phone: [phone] MR VTI 134.50 cm [facility] Work Phone: [phone] MV mean gradient 3 mmHg [facility] Work Phone: [phone] MV peak gradient [facility]: [phone] MV pk A meliton 0.52 m/s [facility] Work Phone: [phone] MV pk E meliton 1.39 m/s [facility] Work Phone: [phone] MV stenosis pressure 1/2 time 58.56 ms [facility] Work Phone: [phone] MV valve area by continuity eq 2.93 cm2 [facility] Work Phone: [phone] MV valve area p 1/2 method 3.76 cm2 [facility] Work Phone: [phone] MV VTI 37.70 cm [facility] Work Phone: [phone] MVA (continuity VTI) 2.92 cm [facility] Work Phone: [phone] [facility] AV VTI RATIO PRE STRESS 0.74 [facility] Work Phone: [phone] [facility] ECHO LV BIPLANE SYSTOLIC VOLUME INDEX 33.17 mL/m2 [facility] Work Phone: [phone] [facility] ECHO LV BP DIASTOLIC VOLUME INDEX 86.54 mL/m2 [facility] Work Phone: [facility] ECHO MR PEAK GRADIENT 70.94 mmHg [facility] Work Phone: [phone] PW 1.16 cm [facility] Work Phone: [phone] RA area 4CH (MOD) 14.50 cm2 [facility] Work Phone: [phone] RA vol index 4CH (MOD) 18.27 mL/m2 [facility] Work Phone: Right atrium volume 4 chamber method of disks [address] Work Phone: [phone] RV Area diastolic 33.20 cm2 [facility] Work Phone: RV Area systolic 21.30 cm2 [facility] Work Phone: [phone] RV basal diam 4.52 cm [facility] Work Phone: RV Fractional area change 35.8 % [facility] Work Phone: RV long diam 8.96 cm [facility] Work Phone: RV mid diam 3.70 cm [facility] Work Phone: RV S' 22.01 cm/s [facility] Work Phone: RVOT peak gradient 4 mmHg [facility] Work Phone: RVOT peak meliton 0.96 m/s [facility] Work Phone: RVOT peak VTI 20.86 cm [facility] Work Phone: Sinus 3.24 cm [facility] Work Phone: STJ 2.61 cm [facility] Work Phone: [phone] Stroke Volume 111 cm/mL [facility] Work Phone: [phone] Stroke volume index 53 [facility] Work Phone: [phone] TAPSE 2.19 cm [facility] Work Phone: [facility] Work Phone: Cardiac echo study [...] echocardiography study was performed. Imaging system used: [employer]. Indications Indications for study: shortness of breath. [facility] Radiology Study observation (narrative) [facility] ECHOCARDIOGRAMon 01-18-2024 Echocardiography ? Left Ventricle: [...] original result were not included. Facility [facility] Patient Information Patient Name George Styles Legal [...] Role Read Date Gian Carlos MD Echo [place] 01/18/2024 Left Heart Measurements LV - Systole [...] Height We (more content not included)... Normal [facility] HEPATIC FUNCTION PANELon Albumin [Mass/Vol] 3.5 g/dL 3.5 - 5.0 g/dL [facility] ALP [Catalytic activity/Vol] 70 U/L 32 - 126 U/L [facility] ALT [Catalytic activity/Vol] 8 U/L Low 10 - 52 U/L [facility] AST [Catalytic activity/Vol] 20 U/L 10 - 39 U/L [facility] Bilirubin [Mass/Vol] 1.7 mg/dL High NINF - 1.5 mg/dL [facility] Bilirubin.direct [Mass/Vol] 0.4 mg/dL High NINF - 0.3 mg/dL [facility] Protein [Mass/Vol] 6.0 g/dL Low 6.4 - 8.3 g/dL [facility] Albumin [Mass/Vol] 3.5 g/dL Normal 3.5-5.0 [facility] Comment on above: Performed By: #### C HMJessica, HFP, MGO #### [facility] (DEFAULT) [address] [address] ALP [Catalytic activity/Vol] 70 U/L Normal 32-126 [facility] Comment on above: Performed By: #### Chinedu HM7, HFP, MGO #### [facility] (DEFAULT) [address] [address] ALT [Catalytic activity/Vol] 8 U/L Low 10-52 [facility] Comment on above: Performed By: #### Chinedu HM7, HFP, MGO #### [facility] (DEFAULT) [address] [address] AST [Catalytic activity/Vol] 20 U/L Normal 10-39 [facility] Comment on above: Performed By: #### TAVO GONG, MGO #### [facility] (DEFAULT) [address] [place] [address] 04571 Bilirubin [Mass/Vol] 1.7 mg/dL High <1.5 [facility] Comment on above: Performed By: #### TAVO GONG, MGO #### [facility] (DEFAULT) [address] [place] [address] 18306 Bilirubin.indirect [Mass/Vol] 0.4 mg/dL High <0.3 [facility] Comment on above: Performed By: #### TAVO GONG, MGO #### [facility] (DEFAULT) [address] [place] [address] 92596 Protein [Mass/Vol] 6.0 g/dL Low 6.4-8.3 [facility] Comment on above: Performed By: #### TAVO GONG, MGO #### [facility] (DEFAULT) [address] [place] [address] 67847 MAGNESIUMon 01-18-2024 Magnesium [Mass/Vol] 1.5 mg/dL Low 1.6 - 2 .6 mg/dL [facility] Magnesium [Mass/Vol] 1.5 mg/dL Low 1.6-2.6 [facility] Comment on above: Performed By: #### Chinedu MEDLEY, TAVO, MGO #### [facility] (DEFAULT) [address] [place] [address] 83914 No Panel Informationon 01-18 Interpretation and review of laboratory results Abnormal [facility] PT,INR,PTTon 01-18-2024 aPTT Coag (PPP) [Time] 30.0 s [facility] INR Coag (Bld) [Relative time] 1.1 {INR} 0.9 - 1.1 [facility] Interpretation and review of laboratory results Abnormal [facility] PT Coag (PPP) [Time] 14.5 s High [facility] aPTT Coag (Bld) [Time] 30.0 s Normal 24.0-34.3 [facility] Comment on above: Performed By: #### C Tray, CHM7, HFP, IPB, MGO #### [facility] (DEFAULT) [address] [place] [address] 65951 INR Coag (PPP) [Relative time] 1.1 {INR} Normal 0.9-1.1 [facility] Comment on above: Performed By: #### Chinedu Feliz, CHM7, HFP, IPB, MGO #### [facility] (DEFAULT) [address] [place] [address] 25682 PT Coag (PPP) [Time] 14.5 s High 11.9-14.2 [facility] Comment on above: Performed By: #### C Tray, CHM7, HFP, IPB, MGO #### [facility] (DEFAULT) [address] [place] [address] 40379 TSH W/FT4 REFLEXon 4 Interpretation and review of laboratory results Normal [facility] TSH Qn 2.660 m[IU]/L [facility] TSH 2.660 uIU/mL Normal 0.550-4.780 [facility] Comment on above: Performed By: #### C HM7, HFP, MGO #### [facility] (DEFAULT) [address] [place] [address] 75127 AFP TUMOR MARKERon 4 AFP Tumor Marker <2.2 Normal <8.1 [facility] Comment on above: Result Comment: This test was performed on the [employer] Immunoassay platform by [employer] which is a two-site sandwich chemiluminescent immunoassay. It is important to note that assays using different manufacturers and/or methods may not be comparable. Performed By: #### Chinedu Feliz, CHM7, HFP, IPB, MGO #### [facility] (DEFAULT) [address] [place] [address] DARYL AURIS SCREEN BY PCRO rdered By: Mynor Alejandro on 01-17-2024 Daryl auris Screen by PCR Not detected Not Detected [facility] Interpretation and review of laboratory results Normal [facility] This test was performed using a real-time PCR assay. This test was developed, and its performance characteristics determined by [facility]. It has not been cleared or approved by the FDA. The laboratory is regulated under CLIA as qualified to perform high-complexity testing. This test is used for clinical purposes. It should not be regarded as investigational or for research. [facility] CBC,PLATELETSon 01-17-2024 Erythrocyte distribution width (RBC) [Ratio] 14.0 % 10.9 - 14.3 % [facility] Hematocrit (Bld) [Volume fraction] 37.2 % Low 39.6 - 48.8 % [facility] Hemoglobin (Bld) [Mass/Vol] 12.0 g/dL Low 13.4 - 16.8 g/dL [facility] Interpretation and review of laboratory results Abnormal [facility] MCH (RBC) [Entitic mass] 27.9 pg 26.1 - 33.3 pg [facility] MCHC (RBC) [Mass/Vol] 32.3 g/dL 31.9 - 36.5 g/dL [facility] MCV (RBC) [Entitic vol] 86.5 fL 79.0 - 94.5 fL [facility] Platelet mean volume (Bld) [Entitic vol] 10.5 fL 8.7 - 12.3 fL [facility] Platelets (Bld) [#/Vol] 159 10*3/uL 146 - 337 K/uL [facility] RBC (Bld) [#/Vol] 4.30 10*6/uL Low [facility] WBC (Bld) [#/Vol] 3.69 10*3/uL Low 3.73 - 10. 10 K/uL [facility] Hematocrit (Bld) [Volume fraction] 37.2 % Low 39.6-48.8 [facility] Comment on above: Performed By: #### Chinedu HM7, HFP, MGO #### [facility] (DEFAULT) [address] [place] [address] 20395 Hemoglobin (Bld) [Mass/Vol] 12.0 g/dL Low 13.4-16.8 [facility] Comment on above: Performed By: #### C HM7, HFP, MGO #### [facility] (DEFAULT) [address] [place] [address] 97981 MCV (RBC) [Entitic vol] 86.5 fL Normal 79.0-94.5 [facility] Comment on above: Performed By: #### Chinedu HM7, HFP, MGO #### [facility] (DEFAULT) [address] [place] [address] 64875 Mean Cell Hgb 27.9 pg Normal 26.1-33.3 [facility] Comment on above: Performed By: #### C HM7, HFP, MGO #### [facility] (DEFAULT) [address] [place] [address] 78492 Mean Cell Hgb Conc 32.3 g/dL Normal 31.9-36.5 [facility] Comment on above: Performed By: #### C HM7, HFP, MGO #### [facility] (DEFAULT) [address] [place] [address] 52080 Platelet mean volume (Bld) [Entitic vol] 10.5 fL Normal 8.7-12.3 [facility] Comment on above: Performed By: #### C HM7, HFP, MGO #### [facility] (DEFAULT) [address] [place] [address] 25963 Platelets (Bld) [#/Vol] 159 10*3/uL Normal 146-337 [facility] Comment on above: Performed By: #### C HM7, HFP, MGO #### [facility] (DEFAULT) [address] [place] [address] RBC (Bld) [#/Vol] 4.30 10*6/uL Low 4.38-5.83 [facility] Comment on above: Performed By: #### C HM7, HFP, MGO #### [facility] (DEFAULT) [address] [place] [address] RBC Distribution 14.0 % Normal 10.9-14.3 [facility] Comment on above: Performed By: #### C HM7, HFP, MGO #### [facility] (DEFAULT) [address] [place] [address] WBC (Bld) [#/Vol] 3.69 10*3/uL Low 3.73-10.10 [facility] Comment on above: Performed By: #### C HM7, HFP, MGO #### [facility] (DEFAULT) [address] [place] [address] CHEM 7 (LYTES,BUN,CREA,GLUC) on 01-17-2024 Anion gap [Moles/Vol] 13 mmol/L 7 - 17 mmol/L [facility] Chloride [Moles/Vol] 109 mmol/L High 98 - 10 8 mmol/L [facility] CO2 [Moles/Vol] 21 mmol/L 21 - 31 mmol/L [facility] Creatinine [Mass/Vol] 1.04 mg/dL 0.70 - 1.30 mg/dL [facility] eGFR, CKD-EPI, Male 86 - [facility]F [facility] [facility] Comment on above: Reported eGFR is bas ed on the CKD-EPI 2020 equation using creatinine, age, and sex. Glucose [Mass/Vol] 82 mg/dL 70 - 99 mg/dL [facility] Osmolality Calc [Osmolality] 292 [facility] Potassium [Moles/Vol] 4.4 mmol/L 3.5 - 5.0 mmol/L [facility] Sodium [Moles/Vol] 139 mmol/L 135 - 145 mmol/L [facility] Urea nitrogen [Mass/Vol] 17 mg/dL 7 - 25 mg/dL [facility] Urea nitrogen/Creatinine [Mass ratio] 16 mg/mg [facility] Anion gap [Moles/Vol] 13 mmol/L Normal 7-17 [facility] Comment on above: Performed By: #### C HM7, HFP, MGO #### [facility] (DEFAULT) [address] [place] [address] 26629 Chloride [Moles/Vol] 109 mmol/L High 98-108 [facility] Comment on above: Performed By: #### C HM7, HFP, MGO #### [facility] (DEFAULT) [address] [place] [address] 26774 CO2 [Moles/Vol] 21 mmol/L Normal 21-31 [facility] Comment on above: Performed By: #### C HM7, HFP, MGO #### [facility] (DEFAULT) [address] [place] [address] 49045 Creatinine [Mass/Vol] 1.04 mg/dL Normal 0.70-1.30 [facility] Comment on above: Performed By: #### C HM7, HFP, MGO #### [facility] (DEFAULT) [address] [place] [address] 65792 GFR/1.73 sq M.predicted among non-blacks MDRD (S/P/Bld) [Vol rate/Area] 86 mL/min/{1.73_m2} Normal >=60 [facility] Comment on above: Result Comment: Repo rted eGFR is based on the CKD-EPI 2020 equation using creatinine, age, and sex. Performed By: #### C HM7, HFP, MGO #### [facility] (DEFAULT) [address] [place] [address] 09155 Glucose [Mass/Vol] 82 mg/dL Normal 70-99 [facility] Comment on above: Performed By: #### C HM7, HFP, MGO #### [facility] (DEFAULT) [address] [place] [address] 87400 Osmolality [Osmolality] 292 mosm/kg Normal 278-305 [facility] Comment on above: Performed By: #### C HM7, HFP, MGO #### [facility] (DEFAULT) [address] [place] [address] 29407 Potassium [Moles/Vol] 4.4 mmol/L Normal 3.5-5.0 [facility] Comment on above: Performed By: #### C HM7, HFP, MGO #### [facility] (DEFAULT) [address] [place] [address] 23281 Sodium [Moles/Vol] 139 mmol/L Normal 135-145 [facility] Comment on above: Performed By: #### C HM7, HFP, MGO #### [facility] (DEFAULT) [address] [place] [address] 65954 Urea nitrogen [Mass/Vol] 17 mg/dL Normal 7-25 [facility] Comment on above: Performed By: #### C HM7, HFP, MGO #### [facility] (DEFAULT) [address] [place] [address] 95879 Urea nitrogen/Creatinine [Mass ratio] 16 mg/mg Normal [facility] Comment on above: Performed By: #### C HM7, HFP, MGO #### [facility] (DEFAULT) [address] [place] [address] ABDOMEN/PELVIS WITHOUT CO NTRASTon 01-17-2024 CT [...] middle lobe. Trace left pleural effusion. Normal [facility] CT Abdomen and Pelvis WO [...] the middle lobe. Trace left pleural effusion. [facility] Study observation (narrative) [facility] HEPATIC FUNCTION PANELon Albumin [Mass/Vol] 3.5 g/dL 3.5 - 5.0 g/dL [facility] ALP [Catalytic activity/Vol] 73 U/L 32 - 126 U/L [facility] ALT [Catalytic activity/Vol] 7 U/L Low 10 - 52 U/L [facility] AST [Catalytic activity/Vol] 25 U/L 10 - 39 U/L [facility] Bilirubin [Mass/Vol] 1.8 mg/dL High NINF - 1.5 mg/dL [facility] Bilirubin.direct [Mass/Vol] 0.3 mg/dL High NINF - 0.3 mg/dL [facility] Protein [Mass/Vol] 6.0 g/dL Low 6.4 - 8.3 g/dL [facility] Albumin [Mass/Vol] 3.5 g/dL Normal 3.5-5.0 [facility] Comment on above: Performed By: #### C HM7, HFP, MGO #### [facility] (DEFAULT) [address] [place] [address] 64472 ALP [Catalytic activity/Vol] 73 U/L Normal 32-126 [facility] Comment on above: Performed By: #### C HM7, HFP, MGO #### [facility] (DEFAULT) [address] [place] [address] 29244 ALT [Catalytic activity/Vol] 7 U/L Low 10-52 [facility] Comment on above: Performed By: #### C HM7, HFP, MGO #### [facility] (DEFAULT) [address] [place] [address] 45500 AST [Catalytic activity/Vol] 25 U/L Normal 10-39 [facility] Comment on above: Performed By: #### C HM7, HFP, MGO #### [facility] (DEFAULT) [address] [place] [address] 07156 Bilirubin [Mass/Vol] 1.8 mg/dL High <1.5 [facility] Comment on above: Performed By: #### C HM7, HFP, MGO #### [facility] (DEFAULT) [address] [place] [address] 77971 Bilirubin.indirect [Mass/Vol] 0.3 mg/dL High <0.3 [facility] Comment on above: Performed By: #### Chinedu HM7, HFP, MGO #### [facility] (DEFAULT) [address] [place] [address] 72060 Protein [Mass/Vol] 6.0 g/dL Low 6.4-8.3 [facility] Comment on above: Performed By: #### C HM7, HFP, MGO #### [facility] (DEFAULT) [address] [place] [address] 95746 HISTOPLASMA AND BLASTOMYCES ANTIGEN, ENZYME IMMUNOASSAY, SERMon 01-17-2024 Histoplasma/Blastomyce s Ag Result Not detected Normal Not Detected [facility] Comment on above: Result Comment: No a ntigen from Histoplasma or Blastomyces detected. False negative results may occur depending on extent of disease, and/or site of infection. Repeat testing on a new specimen if clinically indicated. Performed By: #### C Tray, CHM7, HFP, IPB, MGO #### [facility] (DEFAULT) [address] [place] [address] 66044 Histoplasma/Blastomyce s Ag Value Not detected Normal [facility] Comment on above: Result Comment: ADDITIONAL INFORMATION This test was developed and its performance characteristics determined by [facility] in a manner consistent with CLIA requirements. This test has not been cleared or approved by the U.S. Food and Drug Administration. Test Performed by: [place] [address] [employer]: Rosendo Bose M.D. Ph.D.; CLIA# [id number] Performed By: #### C Tray, CHM7, HFP, IPB, MGO #### [facility] (DEFAULT) [address] [address] MAGNESIUMon 01-17-2024 Interpretation and review of laboratory results Normal [facility] Magnesium [Mass/Vol] 1.7 mg/dL 1.6 - 2 .6 mg/dL [facility] Magnesium [Mass/Vol] 1.7 mg/dL Normal 1.6-2.6 [facility] Comment on above: Performed By: #### C HM7, HFP, MGO #### [facility] (DEFAULT) [address] [place] [address] 49048 No Panel Informationon 01-17 Interpretation and review of laboratory results Abnormal [facility] PT,INR,PTTon 01-17-2024 aPTT Coag (PPP) [Time] 29.[address] [facility] INR Coag (Bld) [Relative time] 1.1 {INR} 0.9 - 1.1 [facility] Interpretation and review of laboratory results Abnormal [facility] PT Coag (PPP) [Time] 14.5 s High [facility] aPTT Coag (Bld) [Time] 29.9 s Normal 24.0-34.3 [facility] Comment on above: Performed By: #### C HM7, HFP, MGO #### [facility] (DEFAULT) [address] [place] [address] 28266 INR Coag (PPP) [Relative time] 1.1 {INR} Normal 0.9-1.1 [facility] Comment on above: Performed By: #### C HM7, HFP, MGO #### [facility] (DEFAULT) [address] [place] [address] 54330 PT Coag (PPP) [Time] 14.5 s High 11.9-14.2 [facility] Comment on above: Performed By: #### C HM7, HFP, MGO #### [facility] (DEFAULT) [address] [place] [address] 89895 B-TYPE NATRIURETIC PEPTIDE ( BRAIN)on 01-16-2024 Interpretation and review of laboratory results Abnormal [facility] Natriuretic peptide B (Bld) [Mass/Vol] 212 pg/mL High 0 - 100 pg/mL [facility] Natriuretic peptide B (Bld) [Mass/Vol] 212 pg/mL High 0-100 [facility] Comment on above: Performed By: #### C HM7, HFP, MGO #### [facility] (DEFAULT) [address] [place] [address] 16603 CALCIUMon 01-16-2024 Calcium [Mass/Vol] 8.5 mg/dL Low 8.6 - 10. 5 mg/dL [facility] Calcium [Mass/Vol] 8.5 mg/dL Low 8.6-10.5 [facility] Comment on above: Performed By: #### C HELEN FelizM7, HFP, IPB, MGO #### [facility] (DEFAULT) [address] [place] [address] 22052 DARYL AURIS SCREEN BY PCRo n 01-16-2024 Daryl auris Screen by PCR Not detected Normal Not Detected [facility] Comment on above: Order Comment: This test was performed using a real-time PCR assay. This test was developed, and its performance characteristics determined by [facility]. It has not been cleared or approved by the FDA. The laboratory is regulated under CLIA as qualified to perform high-complexity testing. This test is used for clinical purposes. It should not be regarded as investigational or for research. Performed By: #### C HM7, HFP, MGO #### [facility] (DEFAULT) [address] [place] [address] 28710 CBC AND ELECTRONIC DIFFon Basophils (Bld) [#/Vol] K/uL 0.00 - 0.09 K/uL [facility] Basophils/100 WBC (Bld) 0.6 % [facility] Differential cell count method Nom (Bld) Electronic Differential [facility] Eosinophils (Bld) [#/Vol] 0.09 10*3/uL 0.00 - 0.48 K/uL [facility] Eosinophils/100 WBC (Bld) 2.5 % [facility] Erythrocyte distribution width (RBC) [Ratio] 14.0 % 10.9 - 14.3 % [facility] Hematocrit (Bld) [Volume fraction] 37.4 % Low 39.6 - 48.8 % [facility] Hemoglobin (Bld) [Mass/Vol] 12.1 g/dL Low 13.4 - 16.8 g/dL [facility] Immature granulocytes (Bld) [#/Vol] K/uL NINF - 0.07 K/uL [facility] Immature granulocytes/100 WBC (Bld) 0.3 % [facility] Interpretation and review of laboratory results Abnormal [facility] Lymphocytes (Bld) [#/Vol] 1.16 10*3/uL 0.83 - 3.57 K/uL [facility] Lymphocytes/100 WBC (Bld) 32.0 % [facility] MCH (RBC) [Entitic mass] 28.4 pg 26.1 - 33.3 pg [facility] MCHC (RBC) [Mass/Vol] 32.4 g/dL 31.9 - 36.5 g/dL [facility] MCV (RBC) [Entitic vol] 87.8 fL 79.0 - 94.5 fL [facility] Monocytes (Bld) [#/Vol] 0.43 10*3/uL 0.24 - 0.93 K/uL [facility] Monocytes/100 WBC (Bld) 11.9 % [facility] Neutrophils (Bld) [#/Vol] 1.91 10*3/uL 1.57 - 6.19 K/uL [facility] Nucleated RBC/100 WBC (Bld) [Ratio] 0.0 % NINF [facility] Platelet mean volume (Bld) [Entitic vol] 10.1 fL 8.7 - 12.3 fL [facility] Platelets (Bld) [#/Vol] 155 10*3/uL 146 - 337 K/uL [facility] RBC (Bld) [#/Vol] 4.26 10*6/uL Low [facility] Segmented neutrophils/100 WBC (Bld) 52.7 % [facility] WBC (Bld) [#/Vol] 3.62 10*3/uL Low 3.73 - 10. 10 K/uL [facility] Abs Baso Auto < Normal 0.00-0.09 [facility] Comment on above: Performed By: #### C TAVO MEDLEY, MGO #### [facility] (DEFAULT) [address] [place] [address] Basophils/100 WBC (Bld) 0.6 % Normal [facility] Comment on above: Performed By: #### Chinedu HM7, HFP, MGO #### [facility] (DEFAULT) [address] [place] [address] 40569 DIFF STATUS Electronic Differential Normal [facility] Comment on above: Performed By: #### C HM7, HFP, MGO #### [facility] (DEFAULT) [address] [place] [address] 96385 Eosinophils (Bld) [#/Vol] 0.09 10*3/uL Normal 0.00-0.48 [facility] Comment on above: Performed By: #### C HM7, HFP, MGO #### [facility] (DEFAULT) [address] [place] [address] 43810 Eosinophils/100 WBC (Bld) 2.5 % Normal [facility] Comment on above: Performed By: #### C HM7, HFP, MGO #### [facility] (DEFAULT) [address] [place] [address] 61455 Hematocrit (Bld) [Volume fraction] 37.4 % Low 39.6-48.8 [facility] Comment on above: Performed By: #### C HM7, HFP, MGO #### [facility] (DEFAULT) [address] [place] [address] 27497 Hemoglobin (Bld) [Mass/Vol] 12.1 g/dL Low 13.4-16.8 [facility] Comment on above: Performed By: #### C HM7, HFP, MGO #### [facility] (DEFAULT) [address] [place] [address] 33485 Immature Grans % 0.3 % Normal [facility] Comment on above: Performed By: #### C HM7, HFP, MGO #### [facility] (DEFAULT) [address] [place] [address] 75840 Immature Grans Absolute < Normal <=0.07 [facility] Comment on above: Performed By: #### C HM7, HFP, MGO #### [facility] (DEFAULT) [address] [place] [address] 64169 Lymphocytes (Bld) [#/Vol] 1.16 10*3/uL Normal 0.83-3.57 [facility] Comment on above: Performed By: #### C HM7, HFP, MGO #### [facility] (DEFAULT) [address] [place] [address] 38768 Lymphocytes/100 WBC (Bld) 32.0 % Normal [facility] Comment on above: Performed By: #### C HM7, HFP, MGO #### [facility] (DEFAULT) [address] [place] [address] 36212 MCV (RBC) [Entitic vol] 87.8 fL Normal 79.0-94.5 [facility] Comment on above: Performed By: #### C HM7, HFP, MGO #### [facility] (DEFAULT) [address] [place] [address] 32685 Mean Cell Hgb 28.4 pg Normal 26.1-33.3 [facility] Comment on above: Performed By: #### C HM7, HFP, MGO #### [facility] (DEFAULT) [address] [place] [address] 28732 Mean Cell Hgb Conc 32.4 g/dL Normal 31.9-36.5 [facility] Comment on above: Performed By: #### C HM7, HFP, MGO #### [facility] (DEFAULT) [address] [place] [address] 63050 Monocytes (Bld) [#/Vol] 0.43 10*3/uL Normal 0.24-0.93 [facility] Comment on above: Performed By: #### C HM7, HFP, MGO #### [facility] (DEFAULT) [address] [place] [address] 17287 Monocytes/100 WBC (Bld) 11.9 % Normal [facility] Comment on above: Performed By: #### C HM7, HFP, MGO #### [facility] (DEFAULT) [address] [place] [address] 89194 Nucleated RBC 0.0 /100 WBC Normal <=0.2 [facility] Comment on above: Performed By: #### C HM7, HFP, MGO #### [facility] (DEFAULT) [address] [place] [address] 35654 Platelet mean volume (Bld) [Entitic vol] 10.1 fL Normal 8.7-12.3 [facility] Comment on above: Performed By: #### C HM7, HFP, MGO #### [facility] (DEFAULT) [address] [place] [address] 94238 Platelets (Bld) [#/Vol] 155 10*3/uL Normal 146-337 [facility] Comment on above: Performed By: #### C HM7, HFP, MGO #### [facility] (DEFAULT) [address] [place] [address] 76969 RBC (Bld) [#/Vol] 4.26 10*6/uL Low 4.38-5.83 [facility] Comment on above: Performed By: #### C HM7, HFP, MGO #### [facility] (DEFAULT) [address] [place] [address] 13410 RBC Distribution 14.0 % Normal 10.9-14.3 [facility] Comment on above: Performed By: #### C HM7, HFP, MGO #### [facility] (DEFAULT) [address] [place] [address] 96012 Segs + Bands Auto 52.7 % Normal [facility] Comment on above: Performed By: #### C HM7, HFP, MGO #### [facility] (DEFAULT) [address] [place] [address] 01425 Segs + Bands,Absolute Auto 1.91 K/uL Normal 1.57-6.19 [facility] Comment on above: Performed By: #### C HM7, HFP, MGO #### [facility] (DEFAULT) [address] [place] [address] 82138 WBC (Bld) [#/Vol] 3.62 10*3/uL Low 3.73-10.10 [facility] Comment on above: Performed By: #### C HM7, HFP, MGO #### [facility] (DEFAULT) [address] [place] [address] CHEM 7 (LYTES,BUN,CREA,GLUC) on 01-16-2024 Anion gap [Moles/Vol] 11 mmol/L 7 - 17 mmol/L [facility] Chloride [Moles/Vol] 108 mmol/L 98 - 10 8 mmol/L [facility] CO2 [Moles/Vol] 24 mmol/L 21 - 31 mmol/L [facility] Creatinine [Mass/Vol] 1.04 mg/dL 0.70 - 1.30 mg/dL [facility] eGFR, CKD-EPI, Male 86 - PINF [facility] Comment on above: Reported eGFR is bas ed on the CKD-EPI 2020 equation using creatinine, age, and sex. Glucose [Mass/Vol] 95 mg/dL 70 - 99 mg/dL [facility] Osmolality Calc [Osmolality] 293 [facility] Potassium [Moles/Vol] 4.0 mmol/L 3.5 - 5.0 mmol/L [facility] Sodium [Moles/Vol] 139 mmol/L 135 - 145 mmol/L [facility] Urea nitrogen [Mass/Vol] 19 mg/dL 7 - 25 mg/dL [facility] Urea nitrogen/Creatinine [Mass ratio] 18 mg/mg [facility] Anion gap [Moles/Vol] 11 mmol/L Normal 7-17 [facility] Comment on above: Performed By: #### Chinedu Feliz, CHM7, HFP, IPB, MGO #### [facility] (DEFAULT) [address] [place] [address] Chloride [Moles/Vol] 108 mmol/L Normal 98-108 [facility] Comment on above: Performed By: #### Chinedu Feliz, CHM7, HFP, IPB, MGO #### [facility] (DEFAULT) [address] [place] [address] 69798 CO2 [Moles/Vol] 24 mmol/L Normal 21-31 [facility] Comment on above: Performed By: #### C A, CHM7, HFP, IPB, MGO #### [facility] (DEFAULT) [address] [place] [address] 58557 Creatinine [Mass/Vol] 1.04 mg/dL Normal 0.70-1.30 [facility] Comment on above: Performed By: #### C A, CHM7, HFP, IPB, MGO #### [facility] (DEFAULT) [address] [place] [address] 36503 GFR/1.73 sq M.predicted among non-blacks MDRD (S/P/Bld) [Vol rate/Area] 86 mL/min/{1.73_m2} Normal >=60 [facility] Comment on above: Result Comment: Repo rted eGFR is based on the CKD-EPI 2020 equation using creatinine, age, and sex. Performed By: #### C A, CHM7, HFP, IPB, MGO #### [facility] (DEFAULT) [address] [place] [address] 36956 Glucose [Mass/Vol] 95 mg/dL Normal 70-99 [facility] Comment on above: Performed By: #### C A, CHM7, HFP, IPB, MGO #### [facility] (DEFAULT) [address] [place] [address] 86347 Osmolality [Osmolality] 293 mosm/kg Normal 278-305 [facility] Comment on above: Performed By: #### C A, CHM7, HFP, IPB, MGO #### [facility] (DEFAULT) [address] [place] [address] 45949 Potassium [Moles/Vol] 4.0 mmol/L Normal 3.5-5.0 [facility] Comment on above: Performed By: #### C A, CHM7, HFP, IPB, MGO #### [facility] (DEFAULT) [address] [place] [address] 17767 Sodium [Moles/Vol] 139 mmol/L Normal 135-145 [facility] Comment on above: Performed By: #### C A, CHM7, HFP, IPB, MGO #### [facility] (DEFAULT) [address] [place] [address] 36945 Urea nitrogen [Mass/Vol] 19 mg/dL Normal 7-25 [facility] Comment on above: Performed By: #### C A, CHM7, HFP, IPB, MGO #### [facility] (DEFAULT) [address] [place] [address] 48784 Urea nitrogen/Creatinine [Mass ratio] 18 mg/mg Normal [facility] Comment on above: Performed By: #### C A, CHM7, HFP, IPB, MGO #### [facility] (DEFAULT) [address] [place] [address] 74166 D-DIMER,QUANTITATIVEOrdered By: Shaji Kelly on 01-16-2024 Fibrin D-dimer FEU (PPP) [Mass/Vol] 0.67 High [facility] Comment on above: The D-Dimer assay is intended for use in conjuction with a clinical pretest probability (PTP) assessment model to exclude pulmonary embolism (PE) and as an aid in the diagnosis of Deep Vein Thrombosis (DVT) in outpatients suspected of PE or DVT. For the assay in use at [facility] ([facility]), a cutoff of <0.50 mcg/mL has a Negative Predictive Value of 99.7% for exclusion of DVT in low and moderate PTP patients. Interpretation and review of laboratory results Abnormal [facility] D-DIMER,QUANTITATIVEon 01-16 D-Dimer, High Sensitivity 0.67 mcg/mL FEU High <0.50 [facility] Comment on above: Result Comment: The D-Dimer assay is intended for use in conjuction with a clinical pretest probability (PTP) assessment model to exclude pulmonary embolism (PE) and as an aid in the diagnosis of Deep Vein Thrombosis (DVT) in outpatients suspected of PE or DVT. For the assay in use at [facility] ([facility]), a cutoff of <0.50 mcg/mL has a Negative Predictive Value of 99.7% for exclusion of DVT in low and moderate PTP patients. Performed By: #### C HM7, HFP, MGO #### [facility] (DEFAULT) [address] [place] [address] 65197 HEPATIC FUNCTION PANELon Albumin [Mass/Vol] 3.7 g/dL 3.5 - 5.0 g/dL [facility] ALP [Catalytic activity/Vol] 70 U/L 32 - 126 U/L [facility] ALT [Catalytic activity/Vol] 8 U/L Low 10 - 52 U/L [facility] AST [Catalytic activity/Vol] 21 U/L 10 - 39 U/L [facility] Bilirubin [Mass/Vol] 1.9 mg/dL High NINF - 1.5 mg/dL [facility] Bilirubin.direct [Mass/Vol] 0.4 mg/dL High NINF - 0.3 mg/dL [facility] Protein [Mass/Vol] 6.1 g/dL Low 6.4 - 8.3 g/dL [facility] Albumin [Mass/Vol] 3.7 g/dL Normal 3.5-5.0 [facility] Comment on above: Performed By: #### C A, CHM7, HFP, IPB, MGO #### [facility] (DEFAULT) [address] [place] [address] ALP [Catalytic activity/Vol] 70 U/L Normal 32-126 [facility] Comment on above: Performed By: #### C A, CHM7, HFP, IPB, MGO #### [facility] (DEFAULT) [address] [place] [address] ALT [Catalytic activity/Vol] 8 U/L Low 10-52 [facility] Comment on above: Performed By: #### C A, CHM7, HFP, IPB, MGO #### [facility] (DEFAULT) [address] [place] [address] 74597 AST [Catalytic activity/Vol] 21 U/L Normal 10-39 [facility] Comment on above: Performed By: #### C A, CHM7, HFP, IPB, MGO #### [facility] (DEFAULT) [address] [place] [address] 28488 Bilirubin [Mass/Vol] 1.9 mg/dL High <1.5 [facility] Comment on above: Performed By: #### C A, CHM7, HFP, IPB, MGO #### [facility] (DEFAULT) [address] [place] [address] [id number] Bilirubin.indirect [Mass/Vol] 0.4 mg/dL High <0.3 [facility] Comment on above: Performed By: #### C A, CHM7, HFP, IPB, MGO #### [facility] (DEFAULT) [address] [place] [address] 21352 Protein [Mass/Vol] 6.1 g/dL Low 6.4-8.3 [facility] Comment on above: Performed By: #### C A, CHM7, HFP, IPB, MGO #### [facility] (DEFAULT) [address] [place] [address] [phone] MAGNESIUMon 01-16-2024 Magnesium [Mass/Vol] 1.7 mg/dL 1.6 - 2 .6 mg/dL [facility] Magnesium [Mass/Vol] 1.7 mg/dL Normal 1.6-2.6 [facility] Comment on above: Performed By: #### C A, CHM7, HFP, IPB, MGO #### [facility] (DEFAULT) [address] [place] [address] 21445 No Panel Informationon 01-16 Interpretation and review of laboratory results Abnormal [facility] Interpretation and review of laboratory results [facility] PHOSPH[facility], INORGANICon 01-16 Phosphate [Mass/Vol] 4.1 mg/dL 2.2 - 4 .6 mg/dL [facility] Phosphorous 4.1 mg/dL Normal 2.2-4.6 [facility] Comment on above: Performed By: #### C A, CHM7, HFP, IPB, MGO #### [facility] (DEFAULT) [address] [place] [address] 52964 PT,INR,PTTon 01-16-2024 aPTT Coag (PPP) [Time] 29.6 s [facility] INR Coag (Bld) [Relative time] 1.2 {INR} High 0.9 - 1.1 [facility] Interpretation and review of laboratory results Abnormal [facility] PT Coag (PPP) [Time] 14.9 s High [facility] aPTT Coag (Bld) [Time] 29.6 s Normal 24.0-34.3 [facility] Comment on above: Performed By: #### C HM7, HFP, MGO #### [facility] (DEFAULT) [address] [place] [address] [phone] INR Coag (PPP) [Relative time] 1.2 {INR} High 0.9-1.1 [facility] Comment on above: Performed By: #### C HM7, HFP, MGO #### [facility] (DEFAULT) [address] [place] [address] [phone] PT Coag (PPP) [Time] 14.9 s High 11.9-14.2 [facility] Comment on above: Performed By: #### C HM7, HFP, MGO #### [facility] (DEFAULT) [address] [place] [address] 56162 TACROLIMUS LEVEL, TROUGH (DE E DRUG LEVEL)Ordered By: Jimy Castillo on 01-16-2024 Interpretation and review of laboratory results Normal [facility] Tacrolimus (Bld) [Mass/Vol] 5.7 ng/mL Bone Marrow Transplant: 4.0-12.0, Therapeutic: 5.0-15.0 [facility] Method performed is a chemiluminescent microparticle immunoasssay on the [employer] i2000. The range is based on experience at [facility] and users should be aware that target concentrations vary widely depending on concomitant therapy, time post-transplant, and desired degree of immunosuppression. [facility] TACROLIMUS LEVEL, TROUGH (DE E DRUG LEVEL)on 01-16-2024 Tacrolimus, Trough 5.7 ng/mL Normal [facility] Transplant: 4.0-12.0, Therapeutic: 5.0-15.0 [facility] Comment on above: Order Comment: Pleas e draw at specified interval PRIOR to dose. Do not hold dose to wait for level. Specimens batched twice per day, (M-F) and once per day weekendsMethod performed is a chemiluminescent microparticle immunoasssay on the [employer] i2000.The range is based on experience at [facility] and users should be aware that target concentrations vary widely depending on concomitant therapy, time post-transplant, and desired degree of immunosuppression. Performed By: #### C A, CHM7, HFP, IPB, MGO #### [facility] (DEFAULT) [address] [place] [address] US ABDOMEN LIVER DOPPLERon 0 01-16-2024 US [...] effusion. Trace right upper quadrant ascites. Normal [facility] US.doppler Abdominal vessels on 01-16-2024 [...] pleural effusion. Trace right upper quadrant ascites. [facility] Radiology Study observation (narrative) [facility] US.doppler Abdominal vessels Ordered By: Iona Duran on 01-16-2024 [facility] Work Phone: XR CHEST PA [...] Normal IMPRESSION: Moderate right pleural effusion. Normal [facility] XR Chest PA and Lateralon [...] Normal IMPRESSION IMPRESSION: Moderate right pleural effusion. [facility] Radiology Study observation (narrative) [facility] XR Chest PA and LateralOrder ed By: Daisha Patterson on 01-16-2024 [facility] Work Phone: ALL CBC WITH AUTO DIFFon BASOPHILS ABSOLUTE AUTO 0.0 [facility] Basophils/100 WBC (Bld) 0.5 % 0.2 - 2.0 % [facility] Eosinophils/100 WBC (Bld) 2.8 % 0.9 - 7.0 % [facility] Erythrocyte distribution width (RBC) [Ratio] 13.8 % 11.0 - 15.0 % [facility] Hematocrit (Bld) [Volume fraction] 43.7 % 42.0 - 54.0 % [facility] Hemoglobin (Bld) [Mass/Vol] 14.0 g/dL 14.0 - 18.0 g/dL [facility] IMMATURE GRANULOCYTES ABS AUTO 0.01 [facility] Immature granulocytes/100 WBC (Bld) 0.3 % 0.0 - 0.5 % [facility] LYMPHOCYTES ABSOLUTE AUTO 1.5 [facility] Lymphocytes/100 WBC (Bld) 37.5 % 20.5 - 60.0 % [facility] MCH (RBC) [Entitic mass] 28.4 pg 25.9 - 34.0 pg [facility] MCHC (RBC) [Mass/Vol] 32.0 g/dL 29.9 - 35.2 g/dL [facility] MCV (RBC) [Entitic vol] 88.6 fL 80.0 - 94.0 fL [facility] MONOCYTES ABSOLUTE AUTO 0.5 [facility] Monocytes/100 WBC (Bld) 11.9 % 1.7 - 12.0 % [facility] NEUTROPHILS ABSOLUTE AUTO 1.9 [facility] Neutrophils/100 WBC (Bld) 47.0 % 43.0 - 75.0 % [facility] Platelet mean volume (Bld) [Entitic vol] 10.3 fL 9.5 - 13.5 fL [facility] EO # 0.1 [facility] PLT 180 [facility] RBC 4.93 [facility] WBC 4.0 [facility] ALL CBC WITH AUTO DIFFon BASOPHILS ABSOLUTE AUTO 0.0 [facility] Basophils/100 WBC (Bld) 0.5 % 0.2 - 2.0 % [facility] Eosinophils/100 WBC (Bld) 2.6 % 0.9 - 7.0 % [facility] Erythrocyte distribution width (RBC) [Ratio] 13.5 % 11.0 - 15.0 % [facility] Hematocrit (Bld) [Volume fraction] 43.8 % 42.0 - 54.0 % [facility] Hemoglobin (Bld) [Mass/Vol] 14.0 g/dL 14.0 - 18.0 g/dL [facility] IMMATURE GRANULOCYTES ABS AUTO 0.00 [facility] Immature granulocytes/100 WBC (Bld) 0.0 % 0.0 - 0.5 % [facility] Interpretation and review of laboratory results Abnormal [facility] LYMPHOCYTES ABSOLUTE AUTO 1.8 [facility] Lymphocytes/100 WBC (Bld) 45.2 % 20.5 - 60.0 % [facility] MCH (RBC) [Entitic mass] 27.9 pg 25.9 - 34.0 pg [facility] MCHC (RBC) [Mass/Vol] 32.0 g/dL 29.9 - 35.2 g/dL [facility] MCV (RBC) [Entitic vol] 87.4 fL 80.0 - 94.0 fL [facility] MONOCYTES ABSOLUTE AUTO 0.4 [facility] Monocytes/100 WBC (Bld) 9.6 % 1.7 - 12.0 % [facility] NEUTROPHILS ABSOLUTE AUTO 1.6 [facility] Neutrophils/100 WBC (Bld) 42.1 % Low 43.0 - 75.0 % [facility] Platelet mean volume (Bld) [Entitic vol] 9.8 fL 9.5 - 13.5 fL [facility] TBH EO # 0.1 [facility] TB PLT 180 [facility] RBC 5.01 [facility] WBC 3.9 Low [facility] CHEM 7 (LYTES,BUN,CREA,GLUC) on 09-11-2023 Anion gap [Moles/Vol] 13 mmol/L 7 - 17 mmol/L [facility] Chloride [Moles/Vol] 111 mmol/L High 98 - 10 8 mmol/L [facility] CO2 [Moles/Vol] 20 mmol/L Low 21 - 31 mmol/L [facility] Creatinine [Mass/Vol] 1.13 mg/dL 0.70 - 1.30 mg/dL [facility] eGFR, CKD-EPI, Male 79 - PINF [facility] Glucose [Mass/Vol] 109 mg/dL High 70 - 99 mg/dL [facility] Interpretation and review of laboratory results Abnormal [facility] Osmolality Calc [Osmolality] 295 [facility] Potassium [Moles/Vol] 4.3 mmol/L 3.5 - 5.0 mmol/L [facility] Sodium [Moles/Vol] 140 mmol/L 135 - 145 mmol/L [facility] Urea nitrogen [Mass/Vol] 16 mg/dL 7 - 25 mg/dL [facility] Urea nitrogen/Creatinine [Mass ratio] 14 mg/mg [facility] Anion gap [Moles/Vol] 13 mmol/L Normal 7-17 [facility] Comment on above: Performed By: #### C Tray, CHM7, HFP, IPB, MGO #### [facility] (DEFAULT) [address] [place] [address] 26841 Chloride [Moles/Vol] 111 mmol/L High 98-108 [facility] Comment on above: Performed By: #### C A, CHM7, HFP, IPB, MGO #### [facility] (DEFAULT) [address] [place] [address] 58052 CO2 [Moles/Vol] 20 mmol/L Low 21-31 [facility] Comment on above: Performed By: #### C A, CHM7, HFP, IPB, MGO #### [facility] (DEFAULT) [address] [place] [address] 42620 Creatinine [Mass/Vol] 1.13 mg/dL Normal 0.70-1.30 [facility] Comment on above: Performed By: #### C A, CHM7, HFP, IPB, MGO #### [facility] (DEFAULT) [address] [place] [address] 57593 GFR/1.73 sq M.predicted among non-blacks MDRD (S/P/Bld) [Vol rate/Area] 78 mL/min/{1.73_m2} Normal >=60 [facility] Comment on above: Result Comment: Repo rted eGFR is based on the CKD-EPI 2020 equation using creatinine, age, and sex. Performed By: #### C A, CHM7, HFP, IPB, MGO #### [facility] (DEFAULT) [address] [place] [address] 54703 Glucose [Mass/Vol] 109 mg/dL High 70-99 [facility] Comment on above: Performed By: #### C A, CHM7, HFP, IPB, MGO #### [facility] (DEFAULT) [address] [place] [address] 71636 Osmolality [Osmolality] 295 mosm/kg Normal 278-305 [facility] Comment on above: Performed By: #### C A, CHM7, HFP, IPB, MGO #### [facility] (DEFAULT) [address] [place] [address] 47346 Potassium [Moles/Vol] 4.3 mmol/L Normal 3.5-5.0 [facility] Comment on above: Performed By: #### C A, CHM7, HFP, IPB, MGO #### [facility] (DEFAULT) [address] [place] [address] 96533 Sodium [Moles/Vol] 140 mmol/L Normal 135-145 [facility] Comment on above: Performed By: #### C A, CHM7, HFP, IPB, MGO #### [facility] (DEFAULT) [address] [place] [address] 86843 Urea nitrogen [Mass/Vol] 16 mg/dL Normal 7-25 [facility] Comment on above: Performed By: #### C A, CHM7, HFP, IPB, MGO #### [facility] (DEFAULT) [address] [place] [address] 81792 Urea nitrogen/Creatinine [Mass ratio] 14 mg/mg Normal [facility] Comment on above: Performed By: #### C A, CHM7, HFP, IPB, MGO #### [facility] (DEFAULT) [address] [place] [address] 10416 GLUCOSE POCon 09-11-2023 Glucose [Mass/Vol] 108 mg/dL High 70 - 99 mg/dL [facility] Interpretation and review of laboratory results Abnormal [facility] POC Sample Type CAPBL [facility] Legionella sp identified Org specific cx Nom (Unsp spec)on 09-11-2023 Bacteria identified Cx Nom (Unsp spec) NO GROWTH DAY 7 OF 7 [facility] MAGNESIUMon 09-11-2023 Interpretation and review of laboratory results Normal [facility] Magnesium [Mass/Vol] 1.6 mg/dL 1.6 - 2 .6 mg/dL [facility] Magnesium [Mass/Vol] 1.6 mg/dL Normal 1.6-2.6 [facility] Comment on above: Performed By: #### C Tray, CHM7, HFP, IPB, MGO #### [facility] (DEFAULT) [address] [place] [address] No Panel Informationon 09-11 [facility] TACROLIMUS LEVEL, TROUGH (DE E DRUG LEVEL)on 09-11-2023 Interpretation and review of laboratory results Normal [facility] Tacrolimus (Bld) [Mass/Vol] 11.5 ng/mL [facility] Tacrolimus, Trough 11.5 ng/mL Normal [facility] Susana ow Transplant: 4.0-12.0, Therapeutic: 5.0-15.0 [facility] Comment on above: Order Comment: Pleas e draw at specified interval PRIOR to dose. Do not hold dose to wait for level. Specimens batched twice per day, (M-F) and once per day weekendsMethod performed is a chemiluminescent microparticle immunoasssay on the [employer] i2000.The range is based on experience at [facility] and users should be aware that target concentrations vary widely depending on concomitant therapy, time post-transplant, and desired degree of immunosuppression. Performed By: #### C A, CHM7, HFP, IPB, MGO #### [facility] (DEFAULT) [address] [address] CBC,PLATELETSon 09-10-2023 Erythrocyte distribution width (RBC) [Ratio] 13.9 % 10.9 - 14.3 % [facility] Hematocrit (Bld) [Volume fraction] 40.0 % 39.6 - 48.8 % [facility] Hemoglobin (Bld) [Mass/Vol] 12.7 g/dL Low 13.4 - 16.8 g/dL [facility] Interpretation and review of laboratory results Abnormal [facility] MCH (RBC) [Entitic mass] 27.3 pg 26.1 - 33.3 pg [facility] MCHC (RBC) [Mass/Vol] 31.8 g/dL Low 31.9 - 36.5 g/dL [facility] MCV (RBC) [Entitic vol] 86.0 fL 79.0 - 94.5 fL [facility] Platelet mean volume (Bld) [Entitic vol] 9.5 fL 8.7 - 12.3 fL [facility] Platelets (Bld) [#/Vol] 225 10*3/uL 146 - 337 K/uL [facility] RBC (Bld) [#/Vol] 4.65 10*6/uL [facility] WBC (Bld) [#/Vol] 6.52 10*3/uL 3.73 - 10. 10 K/uL [facility] Hematocrit (Bld) [Volume fraction] 40.0 % Normal 39.6-48.8 [facility] Comment on above: Performed By: #### C Tray, CHM7, HFP, IPB, MGO #### [facility] (DEFAULT) [address] [address] Hemoglobin (Bld) [Mass/Vol] 12.7 g/dL Low 13.4-16.8 [facility] Comment on above: Performed By: #### C A, CHM7, HFP, IPB, MGO #### [facility] (DEFAULT) [address] [place] [address] 75855 MCV (RBC) [Entitic vol] 86.0 fL Normal 79.0-94.5 [facility] Comment on above: Performed By: #### C A, CHM7, HFP, IPB, MGO #### [facility] (DEFAULT) [address] [place] [address] 41593 Mean Cell Hgb 27.3 pg Normal 26.1-33.3 [facility] Comment on above: Performed By: #### C A, CHM7, HFP, IPB, MGO #### [facility] (DEFAULT) [address] [place] [address] 18430 Mean Cell Hgb Conc 31.8 g/dL Low 31.9-36.5 [facility] Comment on above: Performed By: #### Chinedu Feliz, CHM7, HFP, IPB, MGO #### [facility] (DEFAULT) [address] [place] [address] 80605 Platelet mean volume (Bld) [Entitic vol] 9.5 fL Normal 8.7-12.3 [facility] Comment on above: Performed By: #### C Tray, CHM7, HFP, IPB, MGO #### [facility] (DEFAULT) [address] [place] [address] 38958 Platelets (Bld) [#/Vol] 225 10*3/uL Normal 146-337 [facility] Comment on above: Performed By: #### C A, CHM7, HFP, IPB, MGO #### [facility] (DEFAULT) [address] [place] [address] 42991 RBC (Bld) [#/Vol] 4.65 10*6/uL Normal 4.38-5.83 [facility] Comment on above: Performed By: #### C A, CHM7, HFP, IPB, MGO #### [facility] (DEFAULT) [address] [place] [address] 69914 RBC Distribution 13.9 % Normal 10.9-14.3 [facility] Comment on above: Performed By: #### C A, CHM7, HFP, IPB, MGO #### [facility] (DEFAULT) [address] [place] [address] WBC (Bld) [#/Vol] 6.52 10*3/uL Normal 3.73-10.10 [facility] Comment on above: Performed By: #### C A, CHM7, HFP, IPB, MGO #### [facility] (DEFAULT) [address] [place] [address] CHEM 7 (LYTES,BUN,CREA,GLUC) on 09-10-2023 Anion gap [Moles/Vol] 13 mmol/L 7 - 17 mmol/L [facility] Chloride [Moles/Vol] 111 mmol/L High 98 - 10 8 mmol/L [facility] CO2 [Moles/Vol] 20 mmol/L Low 21 - 31 mmol/L [facility] Creatinine [Mass/Vol] 1.27 mg/dL 0.70 - 1.30 mg/dL [facility] eGFR, CKD-EPI, Male 69 - PINF [facility] Glucose [Mass/Vol] 100 mg/dL High 70 - 99 mg/dL [facility] Osmolality Calc [Osmolality] 293 [facility] Potassium [Moles/Vol] 4.4 mmol/L 3.5 - 5.0 mmol/L [facility] Sodium [Moles/Vol] 140 mmol/L 135 - 145 mmol/L [facility] Urea nitrogen [Mass/Vol] 12 mg/dL 7 - 25 mg/dL [facility] Urea nitrogen/Creatinine [Mass ratio] 9 mg/mg [facility] Anion gap [Moles/Vol] 13 mmol/L Normal 7-17 [facility] Comment on above: Performed By: #### C HM7, HFP, MGO #### [facility] (DEFAULT) [address] [place] [address] Chloride [Moles/Vol] 111 mmol/L High 98-108 [facility] Comment on above: Performed By: #### C JASMYNE, HFP, MGO #### [facility] (DEFAULT) [address] [place] [address] 36998 CO2 [Moles/Vol] 20 mmol/L Low 21-31 [facility] Comment on above: Performed By: #### Chinedu HMJessica, HFP, MGO #### [facility] (DEFAULT) [address] [place] [address] 74851 Creatinine [Mass/Vol] 1.27 mg/dL Normal 0.70-1.30 [facility] Comment on above: Performed By: #### Chinedu HMJessica, TAVO, MGO #### [facility] (DEFAULT) [address] [place] [address] 72062 GFR/1.73 sq M.predicted among non-blacks MDRD (S/P/Bld) [Vol rate/Area] 68 mL/min/{1.73_m2} Normal >=60 [facility] Comment on above: Result Comment: Repo rted eGFR is based on the CKD-EPI 2020 equation using creatinine, age, and sex. Performed By: #### Chinedu MEDLEY, TAVO, MGO #### [facility] (DEFAULT) [address] [place] [address] 06259 Glucose [Mass/Vol] 100 mg/dL High 70-99 [facility] Comment on above: Performed By: #### Chinedu MEDLEY, HFP, MGO #### [facility] (DEFAULT) [address] [place] [address] 12293 Osmolality [Osmolality] 293 mosm/kg Normal 278-305 [facility] Comment on above: Performed By: #### Chinedu HMJessica, HFP, MGO #### [facility] (DEFAULT) [address] [place] [address] 41546 Potassium [Moles/Vol] 4.4 mmol/L Normal 3.5-5.0 [facility] Comment on above: Performed By: #### Chinedu HMJessica, HFP, MGO #### [facility] (DEFAULT) [address] [place] [address] 28732 Sodium [Moles/Vol] 140 mmol/L Normal 135-145 [facility] Comment on above: Performed By: #### C HM7, HFP, MGO #### [facility] (DEFAULT) [address] [place] [address] 80510 Urea nitrogen [Mass/Vol] 12 mg/dL Normal 7-25 [facility] Comment on above: Performed By: #### C HM7, HFP, MGO #### [facility] (DEFAULT) [address] [place] [address] 53992 Urea nitrogen/Creatinine [Mass ratio] 9 mg/mg Normal [facility] Comment on above: Performed By: #### C HM7, HFP, MGO #### [facility] (DEFAULT) [address] [place] [address] 12104 HEPATIC FUNCTION PANELon Albumin [Mass/Vol] 3.3 g/dL Low 3.5 - 5.0 g/dL [facility] ALP [Catalytic activity/Vol] 143 U/L High 32 - 126 U/L [facility] ALT [Catalytic activity/Vol] 28 U/L 10 - 52 U/L [facility] AST [Catalytic activity/Vol] 29 U/L 10 - 39 U/L [facility] Bilirubin [Mass/Vol] 0.9 mg/dL NINF - 1.5 mg/dL [facility] Bilirubin.direct [Mass/Vol] 0.2 mg/dL NINF - 0.3 mg/dL [facility] Protein [Mass/Vol] 6.8 g/dL 6.4 - 8.3 g/dL [facility] Albumin [Mass/Vol] 3.3 g/dL Low 3.5-5.0 [facility] Comment on above: Performed By: #### C HM7, HFP, MGO #### [facility] (DEFAULT) [address] [place] [address] 60418 ALP [Catalytic activity/Vol] 143 U/L High 32-126 [facility] Comment on above: Performed By: #### C HM7, HFP, MGO #### [facility] (DEFAULT) [address] [place] [address] 79233 ALT [Catalytic activity/Vol] 28 U/L Normal 10-52 [facility] Comment on above: Performed By: #### Chinedu HM7, HFP, MGO #### [facility] (DEFAULT) [address] [place] [address] 16862 AST [Catalytic activity/Vol] 29 U/L Normal 10-39 [facility] Comment on above: Performed By: #### Chinedu HM7, HFP, MGO #### [facility] (DEFAULT) [address] [place] [address] 30378 Bilirubin [Mass/Vol] 0.9 mg/dL Normal <1.5 [facility] Comment on above: Performed By: #### Chinedu HM7, HFP, MGO #### [facility] (DEFAULT) [address] [place] [address] 93732 Bilirubin.indirect [Mass/Vol] 0.2 mg/dL Normal <0.3 [facility] Comment on above: Performed By: #### Chinedu HM7, HFP, MGO #### [facility] (DEFAULT) [address] [place] [address] 39583 Protein [Mass/Vol] 6.8 g/dL Normal 6.4-8.3 [facility] Comment on above: Performed By: #### C HM7, HFP, MGO #### [facility] (DEFAULT) [address] [place] [address] 65851 MAGNESIUMon 09-10-2023 Interpretation and review of laboratory results Normal [facility] Magnesium [Mass/Vol] 1.9 mg/dL 1.6 - 2 .6 mg/dL [facility] Magnesium [Mass/Vol] 1.9 mg/dL Normal 1.6-2.6 [facility] Comment on above: Performed By: #### C HM7, HFP, MGO #### [facility] (DEFAULT) [address] [place] [address] No Panel Informationon 09-10 Interpretation and review of laboratory results Abnormal [facility] TACROLIMUS LEVEL, TROUGH (DE E DRUG LEVEL)Ordered By: Jimy Castillo on 09-10-2023 Interpretation and review of laboratory results Normal [facility] Tacrolimus (Bld) [Mass/Vol] 11.8 ng/mL [facility] TACROLIMUS LEVEL, TROUGH (DE E DRUG LEVEL)on 09-10-2023 Tacrolimus, Trough 11.8 ng/mL Normal [facility] Susana ow Transplant: 4.0-12.0, Therapeutic: 5.0-15.0 [facility] Comment on above: Order Comment: Pleas e draw at specified interval PRIOR to dose. Do not hold dose to wait for level. Specimens batched twice per day, (M-F) and once per day weekendsMethod performed is a chemiluminescent microparticle immunoasssay on the [employer] i2000.The range is based on experience at [facility] and users should be aware that target concentrations vary widely depending on concomitant therapy, time post-transplant, and desired degree of immunosuppression. Performed By: #### C HM7, HFP, MGO #### [facility] (DEFAULT) [address] [place] [address] CHEM 7 (LYTES,BUN,CREA,GLUC) on 09-09-2023 Anion gap [Moles/Vol] 14 mmol/L 7 - 17 mmol/L [facility] Chloride [Moles/Vol] 113 mmol/L High 98 - 10 8 mmol/L [facility] CO2 [Moles/Vol] 18 mmol/L Low 21 - 31 mmol/L [facility] Creatinine [Mass/Vol] 1.03 mg/dL 0.70 - 1.30 mg/dL [facility] eGFR, CKD-EPI, Male 87 - PINF [facility] Glucose [Mass/Vol] 106 mg/dL High 70 - 99 mg/dL [facility] Interpretation and review of laboratory results Abnormal [facility] Osmolality Calc [Osmolality] 294 [facility] Potassium [Moles/Vol] 4.0 mmol/L 3.5 - 5.0 mmol/L [facility] Sodium [Moles/Vol] 141 mmol/L 135 - 145 mmol/L [facility] Urea nitrogen [Mass/Vol] 10 mg/dL 7 - 25 mg/dL [facility] Urea nitrogen/Creatinine [Mass ratio] 10 mg/mg [facility] MAGNESIUMon 09-09-2023 Magnesium [Mass/Vol] 1.6 mg/dL 1.6 - 2 .6 mg/dL [facility] No Panel Informationon 09-09 Interpretation and review of laboratory results Normal [facility] PHOSPHATE, INORGANICon 09-09 Phosphate [Mass/Vol] 3.8 mg/dL 2.2 - 4 .6 mg/dL [facility] TACROLIMUS LEVEL, TROUGH (DE E DRUG LEVEL)on 09-09-2023 Interpretation and review of laboratory results Normal [facility] Tacrolimus (Bld) [Mass/Vol] 9.2 ng/mL [facility] CBC,PLATELETSon 09-08-2023 Erythrocyte distribution width (RBC) [Ratio] 13.6 % 10.9 - 14.3 % [facility] Hematocrit (Bld) [Volume fraction] 36.1 % Low 39.6 - 48.8 % [facility] Hemoglobin (Bld) [Mass/Vol] 11.6 g/dL Low 13.4 - 16.8 g/dL [facility] Interpretation and review of laboratory results Abnormal [facility] MCH (RBC) [Entitic mass] 27.4 pg 26.1 - 33.3 pg [facility] MCHC (RBC) [Mass/Vol] 32.1 g/dL 31.9 - 36.5 g/dL [facility] MCV (RBC) [Entitic vol] 85.1 fL 79.0 - 94.5 fL [facility] Platelet mean volume (Bld) [Entitic vol] 9.5 fL 8.7 - 12.3 fL [facility] Platelets (Bld) [#/Vol] 182 10*3/uL 146 - 337 K/uL [facility] RBC (Bld) [#/Vol] 4.24 10*6/uL Low [facility] WBC (Bld) [#/Vol] 4.59 10*3/uL 3.73 - 10. 10 [facility] CHEM 7 (LYTES,BUN,CREA,GLUC) on 09-08-2023 Anion gap [Moles/Vol] 12 mmol/L 7 - 17 mmol/L [facility] Chloride [Moles/Vol] 113 mmol/L High 98 - 10 8 mmol/L [facility] CO2 [Moles/Vol] 21 mmol/L 21 - 31 mmol/L [facility] Creatinine [Mass/Vol] 1.14 mg/dL 0.70 - 1.30 mg/dL [facility] eGFR, CKD-EPI, Male 78 - PINF [facility] Glucose [Mass/Vol] 107 mg/dL High 70 - 99 mg/dL [facility] Osmolality Calc [Osmolality] [address] [facility] Potassium [Moles/Vol] 3.9 mmol/L 3.5 - 5.0 mmol/L [facility] Sodium [Moles/Vol] 142 mmol/L 135 - 145 mmol/L [facility] Urea nitrogen [Mass/Vol] 11 mg/dL 7 - 25 mg/dL [facility] Urea nitrogen/Creatinine [Mass ratio] 10 mg/mg [facility] HEPATIC FUNCTION PANELon Albumin [Mass/Vol] 2.9 g/dL Low 3.5 - 5.0 g/dL [facility] ALP [Catalytic activity/Vol] 133 U/L High 32 - 126 U/L [facility] ALT [Catalytic activity/Vol] 23 U/L 10 - 52 U/L [facility] AST [Catalytic activity/Vol] 23 U/L 10 - 39 U/L [facility] Bilirubin [Mass/Vol] 0.8 mg/dL NINF - 1.5 mg/dL [facility] Bilirubin.direct [Mass/Vol] 0.2 mg/dL NINF - 0.3 mg/dL [facility] Protein [Mass/Vol] 5.9 g/dL Low 6.4 - 8.3 g/dL [facility] MAGNESIUMon 09-08-2023 Interpretation and review of laboratory results Normal [facility] Magnesium [Mass/Vol] 1.8 mg/dL 1.6 - 2 .6 mg/dL [facility] No Panel Informationon 09-08 Interpretation and review of laboratory results Abnormal [facility] PHOSPHATE, INORGANICon 09-08 Interpretation and review of laboratory results Normal [facility] Phosphate [Mass/Vol] 4.1 mg/dL 2.2 - 4 .6 mg/dL [facility] TACROLIMUS LEVEL, TROUGH (DE E DRUG LEVEL)on 09-08-2023 Interpretation and review of laboratory results Normal [facility] Tacrolimus (Bld) [Mass/Vol] 8.5 ng/mL [facility] CBC,PLATELETSon 09-07-2023 Erythrocyte distribution width (RBC) [Ratio] 13.5 % 10.9 - 14.3 % [facility] Hematocrit (Bld) [Volume fraction] 37.1 % Low 39.6 - 48.8 % [facility] Hemoglobin (Bld) [Mass/Vol] 11.9 g/dL Low 13.4 - 16.8 g/dL [facility] Interpretation and review of laboratory results Abnormal [facility] MCH (RBC) [Entitic mass] 27.7 pg 26.1 - 33.3 pg [facility] MCHC (RBC) [Mass/Vol] 32.1 g/dL 31.9 - 36.5 g/dL [facility] MCV (RBC) [Entitic vol] 86.5 fL 79.0 - 94.5 fL [facility] Platelet mean volume (Bld) [Entitic vol] 9.6 fL 8.7 - 12.3 fL [facility] Platelets (Bld) [#/Vol] 176 10*3/uL 146 - 337 K/uL [facility] RBC (Bld) [#/Vol] 4.29 10*6/uL Low [facility] WBC (Bld) [#/Vol] 4.10 10*3/uL 3.73 - 10. 10 K/uL [facility] CHEM 7 (LYTES,BUN,CREA,GLUC) on 09-07-2023 Anion gap [Moles/Vol] 13 mmol/L 7 - 17 mmol/L [facility] Chloride [Moles/Vol] 113 mmol/L High 98 - 10 8 mmol/L [facility] CO2 [Moles/Vol] 19 mmol/L Low 21 - 31 mmol/L [facility] Creatinine [Mass/Vol] 1.22 mg/dL 0.70 - 1.30 mg/dL [facility] eGFR, CKD-EPI, Male 72 - PINF [facility] Glucose [Mass/Vol] 107 mg/dL High 70 - 99 mg/dL [facility] Osmolality Calc [Osmolality] 295 [facility] Potassium [Moles/Vol] 3.9 mmol/L 3.5 - 5.0 mmol/L [facility] Sodium [Moles/Vol] 141 mmol/L 135 - 145 mmol/L [facility] Urea nitrogen [Mass/Vol] 13 mg/dL 7 - 25 mg/dL [facility] Urea nitrogen/Creatinine [Mass ratio] 11 mg/mg [facility] HEPATIC FUNCTION PANELon Albumin [Mass/Vol] 2.9 g/dL Low 3.5 - 5.0 g/dL [facility] ALP [Catalytic activity/Vol] 111 U/L 32 - 126 U/L [facility] ALT [Catalytic activity/Vol] 18 U/L 10 - 52 U/L [facility] AST [Catalytic activity/Vol] 23 U/L 10 - 39 U/L [facility] Bilirubin [Mass/Vol] 0.8 mg/dL NINF - 1.5 mg/dL [facility] Bilirubin.direct [Mass/Vol] 0.3 mg/dL High NINF - 0.3 mg/dL [facility] Protein [Mass/Vol] 6.0 g/dL Low 6.4 - 8.3 g/dL [facility] MAGNESIUMon 09-07-2023 Interpretation and review of laboratory results Normal [facility] Magnesium [Mass/Vol] 1.7 mg/dL 1.6 - 2 .6 mg/dL [facility] No Panel Informationon 09-07 Interpretation and review of laboratory results Abnormal [facility] PHOSPHATE, INORGANICon 09-07 Interpretation and review of laboratory results Normal [facility] Phosphate [Mass/Vol] 4.4 mg/dL 2.2 - 4 .6 mg/dL [facility] TACROLIMUS LEVEL, TROUGH (DE E DRUG LEVEL)Ordered By: Elizabeth Maldonado on 09-07-2023 Interpretation and review of laboratory results Normal [facility] Tacrolimus (Bld) [Mass/Vol] 7.8 ng/mL [facility] CBC,PLATELETSon 09-06-2023 Erythrocyte distribution width (RBC) [Ratio] 13.4 % 10.9 - 14.3 % [facility] Hematocrit (Bld) [Volume fraction] 38.4 % Low 39.6 - 48.8 % [facility] Hemoglobin (Bld) [Mass/Vol] 11.9 g/dL Low 13.4 - 16.8 g/dL [facility] Interpretation and review of laboratory results Abnormal [facility] MCH (RBC) [Entitic mass] 26.6 pg 26.1 - 33.3 pg [facility] MCHC (RBC) [Mass/Vol] 31.0 g/dL Low 31.9 - 36.5 g/dL [facility] MCV (RBC) [Entitic vol] 85.9 fL 79.0 - 94.5 fL [facility] Platelet mean volume (Bld) [Entitic vol] 9.7 fL 8.7 - 12.3 fL [facility] Platelets (Bld) [#/Vol] 181 10*3/uL 146 - 337 K/uL [facility] RBC (Bld) [#/Vol] 4.47 10*6/uL [facility] WBC (Bld) [#/Vol] 4.41 10*3/uL 3.73 - 10. 10 K/uL [facility] CHEM 7 (LYTES,BUN,CREA,GLUC) on 09-06-2023 Anion gap [Moles/Vol] 14 mmol/L 7 - 17 mmol/L [facility] Chloride [Moles/Vol] 109 mmol/L High 98 - 10 8 mmol/L [facility] CO2 [Moles/Vol] 19 mmol/L Low 21 - 31 mmol/L [facility] Creatinine [Mass/Vol] 1.26 mg/dL 0.70 - 1.30 mg/dL [facility] eGFR, CKD-EPI, Male 70 - PINF [facility] Glucose [Mass/Vol] 114 mg/dL High 70 - 99 mg/dL [facility] Osmolality Calc [Osmolality] [address] [facility] Potassium [Moles/Vol] 4.1 mmol/L 3.5 - 5.0 mmol/L [facility] Sodium [Moles/Vol] 138 mmol/L 135 - 145 mmol/L [facility] Urea nitrogen [Mass/Vol] 16 mg/dL 7 - 25 mg/dL [facility] Urea nitrogen/Creatinine [Mass ratio] 13 mg/mg [facility] HEPATIC FUNCTION PANELon Albumin [Mass/Vol] 3.0 g/dL Low 3.5 - 5.0 g/dL [facility] ALP [Catalytic activity/Vol] 115 U/L 32 - 126 U/L [facility] ALT [Catalytic activity/Vol] 25 U/L 10 - 52 U/L [facility] AST [Catalytic activity/Vol] 31 U/L 10 - 39 U/L [facility] Bilirubin [Mass/Vol] 1.0 mg/dL NINF - 1.5 mg/dL [facility] Bilirubin.direct [Mass/Vol] 0.3 mg/dL High NINF - 0.3 mg/dL [facility] Protein [Mass/Vol] 6.3 g/dL Low 6.4 - 8.3 g/dL [facility] MAGNESIUMon 09-06-2023 Interpretation and review of laboratory results Normal [facility] Magnesium [Mass/Vol] 2.0 mg/dL 1.6 - 2 .6 mg/dL [facility] No Panel Informationon 09-06 Interpretation and review of laboratory results Abnormal [facility] TACROLIMUS LEVEL, TROUGH (DE E DRUG LEVEL)on 09-06-2023 Interpretation and review of laboratory results Normal [facility] Tacrolimus (Bld) [Mass/Vol] 6.7 ng/mL [facility] CBC,PLATELETSon 09-05-2023 Erythrocyte distribution width (RBC) [Ratio] 13.5 % 10.9 - 14.3 % [facility] Hematocrit (Bld) [Volume fraction] 35.6 % Low 39.6 - 48.8 % [facility] Hemoglobin (Bld) [Mass/Vol] 11.4 g/dL Low 13.4 - 16.8 g/dL [facility] Interpretation and review of laboratory results Abnormal [facility] MCH (RBC) [Entitic mass] 27.5 pg 26.1 - 33.3 pg [facility] MCHC (RBC) [Mass/Vol] 32.0 g/dL 31.9 - 36.5 g/dL [facility] MCV (RBC) [Entitic vol] 86.0 fL 79.0 - 94.5 fL [facility] Platelet mean volume (Bld) [Entitic vol] 10.0 fL 8.7 - 12.3 fL [facility] Platelets (Bld) [#/Vol] 170 10*3/uL 146 - 337 K/uL [facility] RBC (Bld) [#/Vol] 4.14 10*6/uL Low [facility] WBC (Bld) [#/Vol] 4.24 10*3/uL 3.73 - 10. 10 K/uL [facility] CHEM 7 (LYTES,BUN,CREA,GLUC) on 09-05-2023 Anion gap [Moles/Vol] 12 mmol/L 7 - 17 mmol/L [facility] Chloride [Moles/Vol] 107 mmol/L 98 - 10 8 mmol/L [facility] CO2 [Moles/Vol] 20 mmol/L Low 21 - 31 mmol/L [facility] Creatinine [Mass/Vol] 1.43 mg/dL High 0.70 - 1.30 mg/dL [facility] eGFR, CKD-EPI, Male 60 Low - PINF [facility] Glucose [Mass/Vol] 111 mg/dL High 70 - 99 mg/dL [facility] Osmolality Calc [Osmolality] 286 [facility] Potassium [Moles/Vol] 4.2 mmol/L 3.5 - 5.0 mmol/L [facility] Sodium [Moles/Vol] 135 mmol/L 135 - 145 mmol/L [facility] Urea nitrogen [Mass/Vol] 18 mg/dL 7 - 25 mg/dL [facility] Urea nitrogen/Creatinine [Mass ratio] 13 mg/mg [facility] CONTINUOUS CARDIAC MONITORIN G STRIPon 09-05-2023 [facility] HEPATIC FUNCTION PANELon Albumin [Mass/Vol] 2.8 g/dL Low 3.5 - 5.0 g/dL [facility] ALP [Catalytic activity/Vol] 103 U/L 32 - 126 U/L [facility] ALT [Catalytic activity/Vol] 26 U/L 10 - 52 U/L [facility] AST [Catalytic activity/Vol] 38 U/L 10 - 39 U/L [facility] Bilirubin [Mass/Vol] 0.9 mg/dL NINF - 1.5 mg/dL [facility] Bilirubin.direct [Mass/Vol] 0.1 mg/dL NINF - 0.3 mg/dL [facility] Protein [Mass/Vol] 6.1 g/dL Low 6.4 - 8.3 g/dL [facility] HISTOPLASMA ANTIGEN, FLUIDon 09-05-2023 FH SOURCE BAL RML [facility] Histo FLD interpretation Negative [facility] Histoplasma Antigen, FLUID Not detected ng/mL [facility] HISTOPLASMA CAPSULATUM/BLAST OMYCES SPECIES,PCR FLUIDon 09-05-2023 HISTO/BLASTO RESULT Negative Not Applicable [facility] Specimen source Nom (Unsp spec) BAL RML [facility] IMMUNOPHENOTYPING, TISSUE/FL UIDon 09-05-2023 BKR DX CODE Use Ordering [facility] Flow Interpretation See Comment [facility] Flow Interpreted by: Yossi Perla MD, PhD [facility] MAGNESIUMon 09-05-2023 Interpretation and review of laboratory results Normal [facility] Magnesium [Mass/Vol] 1.7 mg/dL 1.6 - 2 .6 mg/dL [facility] No Panel Informationon 09-05 Interpretation and review of laboratory results Abnormal [facility] TACROLIMUS LEVEL, TROUGH (DE E DRUG LEVEL)Ordered By: Raymundo Mehta on 09-05-2023 Interpretation and review of laboratory results Normal [facility] Tacrolimus (Bld) [Mass/Vol] 5.3 ng/mL [facility] ARTERIAL BLOOD GAS (FULL GOSS EL)on 09-04-2023 Base excess Calc (Bld) [Moles/Vol] -1.2000 mmol/L -3.0 - 3.0 mmol/L [facility] Calcium.ionized (Bld) [Mass/Vol] 4.79 mg/dL 4.60 - 5.30 mg/dL [facility] Carboxyhemoglobin (Bld) [Mass fraction] 0.7 % NINF - 1.5 % [facility] CO2 (Bld) [Partial pressure] 30 mm[Hg] Low [facility] Glucose [Mass/Vol] 159 mg/dL High 70 - 99 mg/dL [facility] HCO3 (Bld) [Moles/Vol] 22 mmol/L 22 - 28 mmol/L [facility] Hematocrit (Bld) [Volume fraction] 38.0 % Low 40.2 - 50.4 % [facility] Hemoglobin (Bld) [Mass/Vol] 12.6 g/dL Low 13.4 - 16.8 g/dL [facility] Interpretation and review of laboratory results Abnormal [facility] Lactate [Moles/Vol] 2.0 mmol/L High 0.5 - 1. 6 mmol/L [facility] Methemoglobin (Bld) [Mass fraction] 0.0 % [facility] Oxygen (Bld) [Partial pressure] 62 mm[Hg] Low [facility] Oxygen saturation in Blood 92 % Low 94 - 98 % [facility] Oxyhemoglobin 91 % Low 94 - 98 % [facility] pH (Bld) 7.48 [pH] High 7.35 - 7.45 [facility] Potassium [Moles/Vol] 4.2 mmol/L 3.5 - 5.0 mmol/L [facility] Sodium [Moles/Vol] 130 mmol/L Low 135 - 145 mmol/L [facility] Specimen source Nom (Unsp spec) Arterial [facility] Bacteria identified Respirat ory culture Nom (Unsp spec)on 09-04-2023 Bacteria identified Cx Nom (Unsp spec) NO GROWTH DAY 2 OF 2 [facility] Microscopic observation Other stain Nom (Unsp spec) [facility]uge [facility] Microscopic observation Other stain Nom (Unsp spec) [facility]ils, [facility] Other stain Nom (Unsp spec) Red Blood Cells Present [facility] Microscopic observation Other stain Nom (Unsp spec) [facility] B[facility] Respirat ory culture Nom (Unsp spec)Ordered By: Jose Salgado on 09-04-2023 Bacteria identified Cx Nom (Unsp spec) NO GROWTH DAY 2 OF 2 [facility] Microscopic observation Other stain Nom (Unsp spec) Cytocentrifuge preparation [facility] Microscopic observation Other stain Nom (Unsp spec) Neutrophils, Moderate [facility] Microscopic observation Other stain Nom (Unsp spec) Red Blood Cells Present [facility] Microscopic observation Other stain Nom (Unsp spec) No organisms seen [facility] CBC,PLATELETSon 09-04-2023 Erythrocyte distribution width (RBC) [Ratio] 13.2 % 10.9 - 14.3 % [facility] Hematocrit (Bld) [Volume fraction] 38.7 % Low 39.6 - 48.8 % [facility] Hemoglobin (Bld) [Mass/Vol] 12.3 g/dL Low 13.4 - 16.8 g/dL [facility] Interpretation and review of laboratory results Abnormal [facility] MCH (RBC) [Entitic mass] 27.9 pg 26.1 - 33.3 pg [facility] MCHC (RBC) [Mass/Vol] 31.8 g/dL Low 31.9 - 36.5 g/dL [facility] MCV (RBC) [Entitic vol] 87.8 fL 79.0 - 94.5 fL [facility] Platelet mean volume (Bld) [Entitic vol] 9.8 fL 8.7 - 12.3 fL [facility] Platelets (Bld) [#/Vol] 173 10*3/uL 146 - 337 K/uL [facility] RBC (Bld) [#/Vol] 4.41 10*6/uL [facility] WBC (Bld) [#/Vol] 4.57 10*3/uL 3.73 - 10. 10 K/uL [facility] CHEM 7 (LYTES,BUN,CREA,GLUC) on 09-04-2023 Anion gap [Moles/Vol] 16 mmol/L 7 - 17 mmol/L [facility] Chloride [Moles/Vol] 104 mmol/L 98 - 10 8 mmol/L [facility] CO2 [Moles/Vol] 18 mmol/L Low 21 - 31 mmol/L [facility] Creatinine [Mass/Vol] 1.22 mg/dL 0.70 - 1.30 mg/dL [facility] eGFR, CKD-EPI, Male 72 - PINF [facility] Glucose [Mass/Vol] 124 mg/dL High 70 - 99 mg/dL [facility] Osmolality Calc [Osmolality] 284 [facility] Potassium [Moles/Vol] 3.9 mmol/L 3.5 - 5.0 mmol/L [facility] Sodium [Moles/Vol] 134 mmol/L Low 135 - 145 mmol/L [facility] Urea nitrogen [Mass/Vol] 15 mg/dL 7 - 25 mg/dL [facility] Urea nitrogen/Creatinine [Mass ratio] 12 mg/mg [facility] CMV PCR,FLUIDS,URINE,EYE ETC on 09-04-2023 Specimen source Nom (Unsp spec) BAL LLL [facility] Specimen source Nom (Unsp spec) BAL RML [facility] HEPATIC FUNCTION PANELon Albumin [Mass/Vol] 3.0 g/dL Low 3.5 - 5.0 g/dL [facility] ALP [Catalytic activity/Vol] 112 U/L 32 - 126 U/L [facility] ALT [Catalytic activity/Vol] 22 U/L 10 - 52 U/L [facility] AST [Catalytic activity/Vol] 30 U/L 10 - 39 U/L [facility] Bilirubin [Mass/Vol] 1.2 mg/dL NINF - 1.5 mg/dL [facility] Bilirubin.direct [Mass/Vol] 0.4 mg/dL High NINF - 0.3 mg/dL [facility] Protein [Mass/Vol] 6.4 g/dL 6.4 - 8.3 g/dL [facility] LEGIONELLA PCRon 09-04-2023 Legionella sp rRNA Probe Ql (Unsp spec) Negative Not Applicable [facility] Specimen source Nom (Unsp spec) BAL RML [facility] - Microbiology an d Antimicrobial susceptibilityon 09-04-2023 CMV DNA ESTELITA+probe Ql (Unsp spec) Negative Negative [facility] MAGNESIUMon 09-04-2023 Magnesium [Mass/Vol] 1.4 mg/dL Low 1.6 - 2 .6 mg/dL [facility] No Panel Informationon 09-04 Annotation comment [Interpretation] Narrative DNR [facility] PN Report Status DNR [facility] Pneumocystis jiroveci,PCR result Negative Not Applicable [facility] Interpretation and review of laboratory results Abnormal [facility] PNEUMOCYSTIS JIROVECI,PCRon 09-04-2023 Specimen source Nom (Unsp spec) BAL LLL [facility] Specimen source Nom (Unsp spec) BAL RML [facility] Portable XR Chest Viewson RADIOLOGY RADIOLOGY [facility] Radiology Study observation (narrative) [facility] Portable XR Chest ViewsOrder ed By: Joanie Nugent on 09-04-2023 [facility] Work Phone: TACROLIMUS LEVEL, TROUGH (DE E DRUG LEVEL)on 09-04-2023 Interpretation and review of laboratory results Abnormal [facility] Tacrolimus (Bld) [Mass/Vol] 3.6 ng/mL Low [facility] ASPERGILLUS ANTIGEN, BALon 1 Galactomannan Ag IA Qn (Unsp spec) <0.500 NINF [facility] Galactomannan Ag IA Qn (Unsp spec) <0.500 NINF [facility] BAL CONSULTOrdered By: Noa Peralta on 09-03-2023 ALVEOLAR MACROPHAGES 32 % [facility] Work Phone: Bal comments Correlation with microbiology stains and cultures is recommended. [facility] Work Phone: Bal Diff Quik Stain Quality Check Acceptable [facility] Work Phone: BKR BAL INTERPRETATION Cellular specimen comprised of alveolar macrophages and small lymphocytes. No definitive microorganisms are observed. Moderate degenerative changes. [facility] Work Phone: BKR DX CODE Use Ordering [facility] Work Phone: Eosinophils Patterson stain Ql (Unsp spec) 0 % [facility] Work Phone: Lymphocytes/100 WBC (Bld) 57 % [facility] Work Phone: Neutrophils/100 WBC Manual cnt (Bronch spec) 11 % [facility] Work Phone: Pathologist review Jame (Unsp spec) [Interp] Leonardo Peralta MD [facility] Work Phone: [facility] Work Phone: BAL CONSULTon 09-03-2023 ALVEOLAR MACROPHAGES 33 % [facility] Bal comments Correlation with microbiology stains and cultures is recommended. Correlation with viral studies is recommended. [facility] Bal Diff Quik Stain Quality Check Acceptable [facility] BKR BAL INTERPRETATION Cellular specimen comprised of alveolar macrophages and small lymphocytes. No definitive microorganisms are observed. Rare degenerating cells with changes suggestive of viral cytopathic effect are noted. Moderate degenerative changes. [facility] BKR DX CODE Use Ordering [facility] Eosinophils Patterson stain Ql (Unsp spec) 0 % [facility] Lymphocytes/100 WBC (Bld) 49 % [facility] Neutrophils/100 WBC Manual cnt (Bronch spec) 18 % [facility] Pathologist review Jame (Unsp spec) [Interp] Leonardo Peralta MD [facility] BRONCHOSCOPYon 09-03-2023 LAB, [facility] CBC,PLATELETSon 09-03-2023 Erythrocyte distribution width (RBC) [Ratio] 13.4 % 10.9 - 14.3 % [facility] Hematocrit (Bld) [Volume fraction] 39.6 % 39.6 - 48.8 % [facility] Hemoglobin (Bld) [Mass/Vol] 12.8 g/dL Low 13.4 - 16.8 g/dL [facility] Interpretation and review of laboratory results Abnormal [facility] MCH (RBC) [Entitic mass] 27.8 pg 26.1 - 33.3 pg [facility] MCHC (RBC) [Mass/Vol] 32.3 g/dL 31.9 - 36.5 g/dL [facility] MCV (RBC) [Entitic vol] 85.9 fL 79.0 - 94.5 fL [facility] Platelet mean volume (Bld) [Entitic vol] 9.4 fL 8.7 - 12.3 fL [facility] Platelets (Bld) [#/Vol] 222 10*3/uL 146 - 337 K/uL [facility] RBC (Bld) [#/Vol] 4.61 10*6/uL [facility] WBC (Bld) [#/Vol] 4.36 10*3/uL 3.73 - 10. 10 K/uL [facility] CHEM 7 (LYTES,BUN,CREA,GLUC) on 09-03-2023 Anion gap [Moles/Vol] 12 mmol/L 7 - 17 mmol/L [facility] Chloride [Moles/Vol] 104 mmol/L 98 - 10 8 mmol/L [facility] CO2 [Moles/Vol] 24 mmol/L 21 - 31 mmol/L [facility] Creatinine [Mass/Vol] 1.20 mg/dL 0.70 - 1.30 mg/dL [facility] eGFR, CKD-EPI, Male 73 - [facility]F [facility] Glucose [Mass/Vol] 112 mg/dL High 70 - 99 mg/dL [facility] Osmolality Calc [Osmolality] [address] [facility] Potassium [Moles/Vol] 4.1 mmol/L 3.5 - 5.0 mmol/L [facility] Sodium [Moles/Vol] 136 mmol/L 135 - 145 mmol/L [facility] Urea nitrogen [Mass/Vol] 17 mg/dL 7 - 25 mg/dL [facility] Urea nitrogen/Creatinine [Mass ratio] 14 mg/mg [facility] CYTOLOGY, NON-GYNOrdered By: Sherice Jimenez on 09-03-2023 CYTOLOGIC DIAGNOSIS [id number] [id number] [id number] dGJsIDtccmVkMFxncmVlbj [id number] [id number] [id number] zYHpeRtswRNoAR7tt4dzkY A7gsOpEML5bDnteQF5wUez xbefb3akqCR0iXH2DKlplA I2BTvkGcRiI9jpTOWfbD5s D72kC4blIJGrfZfkYDruVF ZgaRL1CSK8WMNwi9bmTEAp uCGdkEPyVeQxJPbeUlk1h0 vwVYTltG96qXYogaW1uDda HYdkjAY7UZ02MNgyx7ZpQX FgxGzzNYDetL9uCeRsEPfj dmVsbmZjbjIzXGxldmVsam FtDOhsssAac2TukhWnaTZ2 YCdpzxGzlUX0xPgtDJIaU6 K2O564PJubjfShhkExCrTi wsd5IJTowAuyvHffaEfxxf VsXGxldmVsbmZjMjNcbGV2 AMbiYuVlHuYhfWD9TKobMl EadFC7YCmmzCFyrXO6EHcs jKC0HTt9BEu5NQtlSYwtMq s0eBlmjIT9SXrjgW3bNOMz W76cQkK3h2rfzRQ0aII8YF bmfNP1ODxwNiNcU1aqBSSx hD8zZ94rL7swYRFxeYpnVE zrAKVafKK1JIS3WCLwm7hm ZXZlbHRleHRcJzAxXCdiNz z5q2nhWFEbdO52pQCroyW0 qLooYL30VEntg8KtXENuzZ xtBLIhpR1fOdHnVYlweoUh bmZjbjIzXGxldmVsamMwXG trtdWqw7KdtqYhqHO2YBjv ziYohAC8wWglSUAeG6G8P0 12LMtlavCqvtUiNcQltoe5 XGYxfXtcbGlzdGxldmVsXG okoqNvvbDmAcBxfKI7XKlu CdRrAeWtsCI7VXqbAlAfdP D0GKncvRFztNC1YVeelWK9 MKs2PIv1VLtjMZdbApb3bW begXN3DQlvrR1tOIGfR10q DcR3k5vrdQE7zRS0ZLdqxX F2PLyfZoQxV9keWOGrxQ9o L10sU0vtEKKkxSdgUHpaPH WxwXF1AOP8XRBuy1uhWBWu aQXxdGNpCxHeCXevQfu8o6 kzFNEbfA44dLInatJ3bTmg QF84HXgir6ViQUBqxTjvRF XoqC0qMsPkTAvmtrLryqWy bjIzXGxldmVsamMwXGxldm Kjw6YltoEsgUI6FMooazOa bRQ9uAruMKJiZ2A1K025GS fktiYykkEvSoAtdev3OKRo fXtcbGlzdGxldmVsXGxldm TiymCmFoNtwJL6UUokFaIp XcYgnNR7UAecBdBagMW2CE kezPZyuRD2IUxlrUS3TUv7 VDf6GJubSYurKte1oTvpcP P5PNwogP3rSZAnH43hXkG9 xQ13NAxyeNlyoA77QMSglK ZbsJGxaWC1PTkiwGawsP59 VPPmxDEyXKfeo3TiHIVvAt K1IYD4FKXipFrlcZ19HNCl yIItH066zsFqHHyzXB13XE BhcGVydzEyMjQwXHBhcGVy gFH9CUXeEQ5mjiciGWmfGJ cnPFUrknN4IXQghYBtP5Hs BSHiFB5ydzuzMAJ5VZfvYT HyJVF7IwLwBALkn5Zehjx1 PmIdaHh7g8erMUSwPMUrgN uxv6kdEJH4JQLphKZtC5qn uP9kFXYxWJ5zkpaoy4qnZI xyFYigZUJsnHM6tvY8IHNu lQQfK7AbbZ4zZXAlXLCgpd QbcAsvrC0xIjjaupDnZFFy FOIRDnRRNh6BV8zBFSqXOQ 9MQVIgTEFWQUdFLCBMRUZU BPbXN7ZAQWvKZiLiFKPwDD YxG1uUW3dIH4kxDsckDaBy YJbzPTPyAlYwF2WvYCUshv vrYBTuDVMWMK2JAICIDYIH Rc3FHDR6FJIownlzrSW4CR vjctGnhHx5pFFcwKjseR3k YlxmczIyXGNmMSBObyBNYW xlK03vzsWmM1EewWInHCOl DYloST22rAFtTCQysBVpYO i9eC5sDOostEqvzsICyWMq vX6dyarcEBxjFeSxxLPxDI xpMFxsczBccGFyfQ== [facility] Work Phone: Case Report [facility] Work Phone: Clinical History z1qrcKQkEBUgvOHeAHCu M1 kthyMlWTZevXEbY8Waxyiv IJviET8cWC0rxKqeuKXhaG YdIFQbRsTbu4qtp985hWIe a8obAVDApklmzJa3qWzeC2 1ds0T4IebnS4sdYQTpMBoo BKPlKZkzpQXjOVy4VQCsbW VydzEyMjQwXHBhcGVyaDE1 PAFgOX0mhljzVZlvXSdrTU DrslR7HJOgbSWzZ9ZmNFNm ZT3qllpyJFU7WUxkAEUpFU K8FoOcKIUvm4Mcrxr7FrKr uNf5b6nhGUZmWBYbvJwpq3 krVYO8AEMhaKYmO6zyfC0n LWBeRT8zgskzw4mnHLzlYS rjBJWxpBU9ndV1XQFmnCXh N2MfoI1uFLGnFNWiemAjsX ywfK7zDcBvZVvdYlKmWyQb ASdqiQXgxwTrkJMklL4zRT Bhcn0= [facility] Work Phone: For Immediate Release to Patient's MyChart? Yes Yes [facility] Work Phone: Gross Description p2czuCVgWULawTLwHJNq M1 hzcoIpWVQpmGFjJ2Fcooxm ZZuxKL9cDU4ruQhwzMGgkU LmODIoWiTqy7swl424mYCr j1axASXNtgmshOr1aNfzV8 8go7F0IteoW77nhEFbNBY4 YXBkUDUscXPaCOCvQPP2IR KjbILwR9llMPAxTF7cinfr BOpnRKwpONUurWX3BBGeiQ LgP3WsJJVdDJjoYEYojid3 ZnLdKw6erRYdvUajZRhfQY JkXHBsYWluXGZzMjAgTExM IEJBTFxwYXIgMSBtbCBoYX h6OEKyzN2cgDBxswYvjSEw hR4njZrrJXosAUWrNYPMPV NexUrdOAAVRPNqb4RlvD0z cGFyXHBhcmRccGFyXHBhcn 0= [facility] Work Phone: [facility] Work Phone: HEPATIC FUNCTION PANELon Albumin [Mass/Vol] 3.2 g/dL Low 3.5 - 5.0 g/dL [facility] ALP [Catalytic activity/Vol] 118 U/L 32 - 126 U/L [facility] ALT [Catalytic activity/Vol] 25 U/L 10 - 52 U/L [facility] AST [Catalytic activity/Vol] 32 U/L 10 - 39 U/L [facility] Bilirubin [Mass/Vol] 1.0 mg/dL NINF - 1.5 mg/dL [facility] Bilirubin.direct [Mass/Vol] 0.3 mg/dL High NINF - 0.3 mg/dL [facility] Protein [Mass/Vol] 6.5 g/dL 6.4 - 8.3 g/dL [facility] HISTOPLASMA AND BLASTOMYCES ANTIGEN, ENZYME IMMUNOASSAY, SERMon 09-03-2023 Histoplasma/Blastomyce s Ag Result Detected Critically abnormal Not Detected [facility] Histoplasma/Blastomyce s Ag Value 5.3 ng/mL [facility] Interpretation and review of laboratory results Abnormal [facility] MAGNESIUMon 09-03-2023 Interpretation and review of laboratory results Normal [facility] Magnesium [Mass/Vol] 1.6 mg/dL 1.6 - 2 .6 mg/dL [facility] No Panel Informationon 09-03 Interpretation and review of laboratory results Abnormal [facility] PARVOVIRUS (B19) DNA, PCR, B LOODon 09-03-2023 PARVOVIRUS B19 BY RAPID PCR Not detected Not Detected [facility] DE SPEC SOURCE Whole Blood [facility] Portable XR Chest Viewson RADIOLOGY RADIOLOGY [facility] Radiology Study observation (narrative) [facility] Portable XR Chest ViewsOrder ed By: Lester Grove on 09-03-2023 [facility] Work Phone: ASPERGILLUS (GALACTOMANNAN), ANTIGENon 09-02-2023 Galactomannan Ag IA Qn <0.500 NINF OS [facility] ATYPICAL BACTERIAL PNEUMONIA ,PCROrdered By: Shari Contreras on 09-02-2023 B. parapertussis DNA ESTELITA+probe Ql (Unsp spec) Not detected Not Detected [facility] B. pertussis DNA ESTELITA+probe Ql (Unsp spec) Not detected Not Detected [facility] C. pneumoniae DNA ESTELITA+probe Ql (Unsp spec) Not detected Not Detected [facility] Interpretation and review of laboratory results Normal [facility] M. pneumoniae DNA ESTELITA+probe Ql (Unsp spec) Not detected Not Detected [facility] BRONCHOSCOPYon 09-02-2023 Radiology Study observation (narrative) [facility] Bacteria identified Cx Nom ( Bld)on 09-02-2023 Bacteria identified Cx Nom (Unsp spec) NO GROWTH DAY 5 OF 5 [facility] CBC,PLATELETSon 09-02-2023 Erythrocyte distribution width (RBC) [Ratio] 13.2 % 10.9 - 14.3 % [facility] Hematocrit (Bld) [Volume fraction] 39.9 % 39.6 - 48.8 % [facility] Hemoglobin (Bld) [Mass/Vol] 12.9 g/dL Low 13.4 - 16.8 g/dL [facility] Interpretation and review of laboratory results Abnormal [facility] MCH (RBC) [Entitic mass] 27.9 pg 26.1 - 33.3 pg [facility] MCHC (RBC) [Mass/Vol] 32.3 g/dL 31.9 - 36.5 g/dL [facility] MCV (RBC) [Entitic vol] 86.4 fL 79.0 - 94.5 fL [facility] Platelet mean volume (Bld) [Entitic vol] 9.5 fL 8.7 - 12.3 fL [facility] Platelets (Bld) [#/Vol] 210 10*3/uL 146 - 337 K/uL [facility] RBC (Bld) [#/Vol] 4.62 10*6/uL [facility] WBC (Bld) [#/Vol] 4.12 10*3/uL 3.73 - 10. 10 K/uL [facility] CHEM 7 (LYTES,BUN,CREA,GLUC) on 09-02-2023 Anion gap [Moles/Vol] 13 mmol/L 7 - 17 mmol/L [facility] Chloride [Moles/Vol] 105 mmol/L 98 - 10 8 mmol/L [facility] CO2 [Moles/Vol] 22 mmol/L 21 - 31 mmol/L [facility] Creatinine [Mass/Vol] 1.25 mg/dL 0.70 - 1.30 mg/dL [facility] eGFR, CKD-EPI, Male 70 - PINF [facility] Glucose [Mass/Vol] 105 mg/dL High 70 - 99 mg/dL [facility] Osmolality Calc [Osmolality] [address] [facility] Potassium [Moles/Vol] 4.3 mmol/L 3.5 - 5.0 mmol/L [facility] Sodium [Moles/Vol] 136 mmol/L 135 - 145 mmol/L [facility] Urea nitrogen [Mass/Vol] 16 mg/dL 7 - 25 mg/dL [facility] Urea nitrogen/Creatinine [Mass ratio] 13 mg/mg [facility] HEPATIC FUNCTION PANELon Albumin [Mass/Vol] 3.2 g/dL Low 3.5 - 5.0 g/dL [facility] ALP [Catalytic activity/Vol] 107 U/L 32 - 126 U/L [facility] ALT [Catalytic activity/Vol] 20 U/L 10 - 52 U/L [facility] AST [Catalytic activity/Vol] 31 U/L 10 - 39 U/L [facility] Bilirubin [Mass/Vol] 1.0 mg/dL NINF - 1.5 mg/dL [facility] Bilirubin.direct [Mass/Vol] 0.3 mg/dL High NINF - 0.3 mg/dL [facility] Protein [Mass/Vol] 6.6 g/dL 6.4 - 8.3 g/dL [facility] HISTOPLASMA ANTIGEN,URINEon 09-02-2023 H. capsulatum Ag (U) [Mass/Vol] Not detected ng/mL [facility] H. capsulatum Ag IA Ql (U) Not detected Not Detected [facility] HIV 1 AND 2 ANTIBODIES/P24 A NTIGENOrdered By: Wilma Luque on 09-02-2023 HIV 1+2 Ab+HIV1 p24 Ag IA Ql Non-Reactive Non Reactive [facility] Interpretation and review of laboratory results Normal [facility] MAGNESIUMon 09-02-2023 Interpretation and review of laboratory results Normal [facility] Magnesium [Mass/Vol] 1.7 mg/dL 1.6 - 2 .6 mg/dL [facility] No Panel Informationon 09-02 Interpretation and review of laboratory results Abnormal [facility] TACROLIMUS LEVEL, TROUGH (DE E DRUG LEVEL)on 09-02-2023 Interpretation and review of laboratory results Normal [facility] Tacrolimus (Bld) [Mass/Vol] 4.2 ng/mL [facility] CBC,PLATELETSon 09-01-2023 Erythrocyte distribution width (RBC) [Ratio] 13.4 % 10.9 - 14.3 % [facility] Hematocrit (Bld) [Volume fraction] 38.9 % Low 39.6 - 48.8 % [facility] Hemoglobin (Bld) [Mass/Vol] 12.7 g/dL Low 13.4 - 16.8 g/dL [facility] Interpretation and review of laboratory results Abnormal [facility] MCH (RBC) [Entitic mass] 27.6 pg 26.1 - 33.3 pg [facility] MCHC (RBC) [Mass/Vol] 32.6 g/dL 31.9 - 36.5 g/dL [facility] MCV (RBC) [Entitic vol] 84.6 fL 79.0 - 94.5 fL [facility] Platelet mean volume (Bld) [Entitic vol] 9.4 fL 8.7 - 12.3 fL [facility] Platelets (Bld) [#/Vol] 209 10*3/uL 146 - 337 K/uL [facility] RBC (Bld) [#/Vol] 4.60 10*6/uL [facility] WBC (Bld) [#/Vol] 4.41 10*3/uL 3.73 - 10. 10 K/uL [facility] CHEM 7 (LYTES,BUN,CREA,GLUC) on 09-01-2023 Anion gap [Moles/Vol] 14 mmol/L 7 - 17 mmol/L [facility] Chloride [Moles/Vol] 103 mmol/L 98 - 10 8 mmol/L [facility] CO2 [Moles/Vol] 21 mmol/L 21 - 31 mmol/L [facility] Creatinine [Mass/Vol] 1.16 mg/dL 0.70 - 1.30 mg/dL [facility] eGFR, CKD-EPI, Male 76 - PINF [facility] Glucose [Mass/Vol] 117 mg/dL High 70 - 99 mg/dL [facility] Osmolality Calc [Osmolality] 285 [facility] Potassium [Moles/Vol] 4.2 mmol/L 3.5 - 5.0 mmol/L [facility] Sodium [Moles/Vol] 134 mmol/L Low 135 - 145 mmol/L [facility] Urea nitrogen [Mass/Vol] 18 mg/dL 7 - 25 mg/dL [facility] Urea nitrogen/Creatinine [Mass ratio] 16 mg/mg [facility] CRYPTOCOCCAL ANTIGENon 09-01 Cryptococcus sp Ag Ql (S) Negative Negative [facility] Interpretation and review of laboratory results Normal [facility] HEPATIC FUNCTION PANELon Albumin [Mass/Vol] 3.3 g/dL Low 3.5 - 5.0 g/dL [facility] ALP [Catalytic activity/Vol] 112 U/L 32 - 126 U/L [facility] ALT [Catalytic activity/Vol] 21 U/L 10 - 52 U/L [facility] AST [Catalytic activity/Vol] 29 U/L 10 - 39 U/L [facility] Bilirubin [Mass/Vol] 1.0 mg/dL NINF - 1.5 mg/dL [facility] Bilirubin.direct [Mass/Vol] 0.2 mg/dL NINF - 0.3 mg/dL [facility] Protein [Mass/Vol] 6.8 g/dL 6.4 - 8.3 g/dL [facility] L. pneumophila 1 Ag IA Ql (U )Ordered By: Carolin Miles on 09-01-2023 Interpretation and review of laboratory results Normal [facility] AGOrdered By: Carolin Miles on 09-01-2023 L. pneumophila 1 Ag IA Ql (U) Negative Negative [facility] MAGNESIUMon 09-01-2023 Interpretation and review of laboratory results Normal [facility] Magnesium [Mass/Vol] 1.6 mg/dL 1.6 - 2 .6 mg/dL [facility] No Panel Informationon 09-01 Interpretation and review of laboratory results Abnormal [facility] CBC,PLATELETSon 08-31-2023 Erythrocyte distribution width (RBC) [Ratio] 13.3 % 10.9 - 14.3 % [facility] Hematocrit (Bld) [Volume fraction] 39.4 % Low 39.6 - 48.8 % [facility] Hemoglobin (Bld) [Mass/Vol] 12.8 g/dL Low 13.4 - 16.8 g/dL [facility] Interpretation and review of laboratory results Abnormal [facility] MCH (RBC) [Entitic mass] 27.6 pg 26.1 - 33.3 pg [facility] MCHC (RBC) [Mass/Vol] 32.5 g/dL 31.9 - 36.5 g/dL [facility] MCV (RBC) [Entitic vol] 85.1 fL 79.0 - 94.5 fL [facility] Platelet mean volume (Bld) [Entitic vol] 9.6 fL 8.7 - 12.3 fL [facility] Platelets (Bld) [#/Vol] 228 10*3/uL 146 - 337 K/uL [facility] RBC (Bld) [#/Vol] 4.63 10*6/uL [facility] WBC (Bld) [#/Vol] 4.77 10*3/uL 3.73 - 10. 10 K[facility]L [facility] CHEM 7 (LYTES,BUN,CREA,GLUC) on 08-31-2023 Anion gap [Moles/Vol] 13 mmol/L 7 - 17 mmol/L [facility] Chloride [Moles/Vol] 102 mmol/L 98 - 10 8 mmol/[facility] CO2 [Moles/Vol] 23 mmol/L 21 - 31 mmol/[facility] Creatinine [Mass/Vol] 1.37 mg/dL High 0.70 - 1.30 mg/dL [facility] eGFR, CKD-EPI, Male 62 - [facility]F [facility] Glucose [Mass/Vol] 112 mg/dL High 70 - 99 mg/dL [facility] Osmolality Calc [Osmolality] [address] [facility] Potassium [Moles/Vol] 4.4 mmol/L 3.5 - 5.0 mmol/L [facility] Sodium [Moles/Vol] 134 mmol/L Low 135 - 145 mmol/L [facility] Urea nitrogen [Mass/Vol] 16 mg/dL 7 - 25 mg/dL [facility] Urea nitrogen/Creatinine [Mass ratio] 12 mg/mg [facility] CT Abdomen and Pelvis WO con traston 08-31-2023 RADIOLOGY RADIOLOGY [facility] Radiology Study observation (narrative) [facility] CT Abdomen and Pelvis WO con trastOrdered By: Chavez Larkin on 08-31-2023 [facility] Work Phone: CT Chest WO contraston 08-31 RADIOLOGY RADIOLOGY [facility] Radiology Study observation (narrative) [facility] CT Chest WO contrastOrdered By: Daisha Patterson on 08-31-2023 [facility] Work Phone: FERRITINon 08-31-2023 Ferritin [Mass/Vol] 409.0 ng/mL High 10.5 - 3 07.3 ng/mL [facility] Interpretation and review of laboratory results Abnormal [facility] HEPATIC FUNCTION PANELon Albumin [Mass/Vol] 3.3 g/dL Low 3.5 - 5.0 g/dL [facility] ALP [Catalytic activity/Vol] 113 U/L 32 - 126 U/L [facility] ALT [Catalytic activity/Vol] 25 U/L 10 - 52 U/L [facility] AST [Catalytic activity/Vol] 31 U/L 10 - 39 U/L [facility] Bilirubin [Mass/Vol] 1.1 mg/dL NINF - 1.5 mg/dL [facility] Bilirubin.direct [Mass/Vol] 0.3 mg/dL High NINF - 0.3 mg/dL [facility] Protein [Mass/Vol] 7.0 g/dL 6.4 - 8.3 g/dL [facility] MAGNESIUMon 08-31-2023 Interpretation and review of laboratory results Normal [facility] Magnesium [Mass/Vol] 1.7 mg/dL 1.6 - 2 .6 mg/dL [facility] No Panel Informationon 08-31 Interpretation and review of laboratory results Abnormal [facility] PROCALCITONINon 08-31-2023 Interpretation and review of laboratory results Normal [facility] Procalcitonin [Mass/Vol] 0.23 ng/mL NINF - 0.50 ng/mL [facility] TACROLIMUS LEVEL, TROUGH (DE E DRUG LEVEL)Ordered By: Yanira Marcum on 08-31-2023 Interpretation and review of laboratory results Normal [facility] Tacrolimus (Bld) [Mass/Vol] 5.9 ng/mL [facility] URINE CULTUREOrdered By: Jorge Lozano on 08-31-2023 Bacteria identified Cx Nom (Unsp spec) No Growth [facility] DARYL AURIS SCREEN BY PCRO rdered By: Mynor Alejandro on 10-01-2023 Daryl auris Screen by PCR Not detected Not Detected [facility] Interpretation and review of laboratory results Normal [facility] CBC,PLATELETSon 08-30-2023 Erythrocyte distribution width (RBC) [Ratio] 13.3 % 10.9 - 14.3 % [facility] Hematocrit (Bld) [Volume fraction] 41.3 % 39.6 - 48.8 % [facility] Hemoglobin (Bld) [Mass/Vol] 13.2 g/dL Low 13.4 - 16.8 g/dL [facility] Interpretation and review of laboratory results Abnormal [facility] MCH (RBC) [Entitic mass] 27.3 pg 26.1 - 33.3 pg [facility] MCHC (RBC) [Mass/Vol] 32.0 g/dL 31.9 - 36.5 g/dL [facility] MCV (RBC) [Entitic vol] 85.5 fL 79.0 - 94.5 fL [facility] Platelet mean volume (Bld) [Entitic vol] 9.2 fL 8.7 - 12.3 fL [facility] Platelets (Bld) [#/Vol] 235 10*3/uL 146 - 337 K/uL [facility] RBC (Bld) [#/Vol] 4.83 10*6/uL [facility] WBC (Bld) [#/Vol] 4.96 10*3/uL 3.73 - 10. 10 K/uL [facility] CHEM 7 (LYTES,BUN,CREA,GLUC) on 08-30-2023 Anion gap [Moles/Vol] 14 mmol/L 7 - 17 mmol/L [facility] Chloride [Moles/Vol] 102 mmol/L 98 - 10 8 mmol/L [facility] CO2 [Moles/Vol] 20 mmol/L Low 21 - 31 mmol/L [facility] Creatinine [Mass/Vol] 1.56 mg/dL High 0.70 - 1.30 mg/dL [facility] eGFR, CKD-EPI, Male 54 Low - PINF [facility] Glucose [Mass/Vol] 123 mg/dL High 70 - 99 mg/dL [facility] Osmolality Calc [Osmolality] 281 [facility] Potassium [Moles/Vol] 4.3 mmol/L 3.5 - 5.0 mmol/L [facility] Sodium [Moles/Vol] 132 mmol/L Low 135 - 145 mmol/L [facility] Urea nitrogen [Mass/Vol] 16 mg/dL 7 - 25 mg/dL [facility] Urea nitrogen/Creatinine [Mass ratio] 10 mg/mg [facility] EXTRA MICROon 08-30-2023 [facility] HEPATIC FUNCTION PANELon Albumin [Mass/Vol] 3.7 g/dL 3.5 - 5.0 g/dL [facility] ALP [Catalytic activity/Vol] 115 U/L 32 - 126 U/L [facility] ALT [Catalytic activity/Vol] 22 U/L 10 - 52 U/L [facility] AST [Catalytic activity/Vol] 34 U/L 10 - 39 U/L [facility] Bilirubin [Mass/Vol] 1.2 mg/dL NINF - 1.5 mg/dL [facility] Bilirubin.direct [Mass/Vol] 0.3 mg/dL High NINF - 0.3 mg/dL [facility] Protein [Mass/Vol] 7.7 g/dL 6.4 - 8.3 g/dL [facility] MAGNESIUMon 08-30-2023 Interpretation and review of laboratory results Normal [facility] Magnesium [Mass/Vol] 1.8 mg/dL 1.6 - 2 .6 mg/dL [facility] No Panel Informationon 08-30 Interpretation and review of laboratory results Abnormal [facility] CBC,PLATELETSon 08-29-2023 Erythrocyte distribution width (RBC) [Ratio] 13.4 % 10.9 - 14.3 % [facility] Hematocrit (Bld) [Volume fraction] 37.6 % Low 39.6 - 48.8 % [facility] Hemoglobin (Bld) [Mass/Vol] 12.2 g/dL Low 13.4 - 16.8 g/dL [facility] Interpretation and review of laboratory results Abnormal [facility] MCH (RBC) [Entitic mass] 27.6 pg 26.1 - 33.3 pg [facility] MCHC (RBC) [Mass/Vol] 32.4 g/dL 31.9 - 36.5 g/dL [facility] MCV (RBC) [Entitic vol] 85.1 fL 79.0 - 94.5 fL [facility] Platelet mean volume (Bld) [Entitic vol] 9.4 fL 8.7 - 12.3 fL [facility] Platelets (Bld) [#/Vol] 233 10*3/uL 146 - 337 K/uL [facility] RBC (Bld) [#/Vol] 4.42 10*6/uL [facility] WBC (Bld) [#/Vol] 4.92 10*3/uL 3.73 - 10. 10 K/uL [facility] CHEM 7 (LYTES,BUN,CREA,GLUC) on 08-29-2023 Anion gap [Moles/Vol] 13 mmol/L 7 - 17 mmol/L [facility] Chloride [Moles/Vol] 105 mmol/L 98 - 10 8 mmol/L [facility] CO2 [Moles/Vol] 20 mmol/L Low 21 - 31 mmol/L [facility] Creatinine [Mass/Vol] 1.55 mg/dL High 0.70 - 1.30 mg/dL [facility] eGFR, CKD-EPI, Male 55 Low - PINF [facility] Glucose [Mass/Vol] 108 mg/dL High 70 - 99 mg/dL [facility] Osmolality Calc [Osmolality] 283 [facility] Potassium [Moles/Vol] 4.5 mmol/L 3.5 - 5.0 mmol/L [facility] Sodium [Moles/Vol] 133 mmol/L Low 135 - 145 mmol/L [facility] Urea nitrogen [Mass/Vol] 19 mg/dL 7 - 25 mg/dL [facility] Urea nitrogen/Creatinine [Mass ratio] 12 mg/mg [facility] GGTon 08-29-2023 Gamma glutamyl transferase [Catalytic activity/Vol] 64 U/L 8 - 64 U/L [facility] Interpretation and review of laboratory results Normal [facility] HEPATIC FUNCTION PANELon Albumin [Mass/Vol] 3.3 g/dL Low 3.5 - 5.0 g/dL [facility] ALP [Catalytic activity/Vol] 103 U/L 32 - 126 U/L [facility] ALT [Catalytic activity/Vol] 18 U/L 10 - 52 U/L [facility] AST [Catalytic activity/Vol] 27 U/L 10 - 39 U/L [facility] Bilirubin [Mass/Vol] 1.1 mg/dL NINF - 1.5 mg/dL [facility] Bilirubin.direct [Mass/Vol] 0.3 mg/dL High NINF - 0.3 mg/dL [facility] Protein [Mass/Vol] 6.8 g/dL 6.4 - 8.3 g/dL [facility] MAGNESIUMon 08-29-2023 Interpretation and review of laboratory results Normal [facility] Magnesium [Mass/Vol] 1.7 mg/dL 1.6 - 2 .6 mg/dL [facility] No Panel Informationon 08-29 Interpretation and review of laboratory results Abnormal [facility] PT,INR,PTTon 08-29-2023 aPTT Coag (PPP) [Time] 29.3 s [facility] INR Coag (Bld) [Relative time] 1.1 {INR} 0.9 - 1.1 [facility] Interpretation and review of laboratory results Normal [facility] PT Coag (PPP) [Time] 13.8 s [facility] Portable XR Chest Viewson RADIOLOGY RADIOLOGY U [facility] Portable XR Chest ViewsOrder ed By: Gerald Baer on 08-29-2023 [facility] Work Phone: TACROLIMUS LEVEL, TROUGH (DE E DRUG LEVEL)on 08-29-2023 Interpretation and review of laboratory results [facility] Tacrolimus (Bld) [Mass/Vol] 8.9 ng/mL [facility] TACROLIMUS LEVEL, TROUGH (DE E DRUG LEVEL)Ordered By: Roxanne Louie on 08-29-2023 Interpretation and review of laboratory results [facility] Tacrolimus (Bld) [Mass/Vol] 8.7 ng/mL [facility] URINALYSIS REFLEX TO CULTURE PERFORMABLEOrdered By: Shaji Kelly on 08-29-2023 Appearance (U) Clear Clear [facility] Bacteria LM Ql (Urine sed) ABSENT ABSENT [facility] Calcium Oxalate Crystals PRESENT [facility] Color (U) Yellow Yellow [facility] Epithelial cells.squamous LM Ql (Urine sed) 0-2/hpf 0-2/hpf, 3-5/hpf = 1+ [facility] Glucose Test strip (U) [Mass/Vol] Negative Negative [facility] Interpretation and review of laboratory results Abnormal [facility] Ketones (U) [Mass/Vol] Negative Negative [facility] Leukocyte esterase Test strip Ql (U) Negative Negative [facility] Nitrite Ql (U) Negative Negative [facility] pH (U) 6.0 [pH] 5.0 - 7.0 [facility] Protein (U) [Mass/Vol] Negative Negative [facility] RBC (U) [#/Vol] Trace Abnormal [facility] RBC LM.HPF (Urine sed) [#/Area] 3-5 Abnormal [facility] Specific gravity (U) [Rel density] 1.015 1.001 - 1.035 [facility] Urob[facility]ogen (U) [Mass/Vol] 1.0 E.U./dL 0.2 E.U/dL, 1.0 E.U/dL [facility] WBC LM.HPF (Urine sed) [#/Area] 0 - 5 [facility] for transplanted kidney l imitedon 08-29-2023 [facility]Y [facility] [facility] Radiology Study observation (narrative) [facility] US for transplanted kidney l imitedOrdered By: Romana Matias on 08-29-2023 [facility] Work Phone: CBC AND ELECTRONIC DIFFon Basophils (Bld) [#/Vol] K/uL 0.00 - 0.09 K/uL [facility] Basophils/100 WBC (Bld) 0.6 % [facility] Differential cell count method Nom (Bld) Electronic Differential [facility] Eosinophils (Bld) [#/Vol] 0.10 10*3/uL 0.00 - 0.48 K/uL [facility] Eosinophils/100 WBC (Bld) 2.1 % [facility] Erythrocyte distribution width (RBC) [Ratio] 13.4 % 10.9 - 14.3 % [facility] Hematocrit (Bld) [Volume fraction] 37.9 % Low 39.6 - 48.8 % [facility] Hemoglobin (Bld) [Mass/Vol] 12.4 g/dL Low 13.4 - 16.8 g/dL [facility] Immature granulocytes (Bld) [#/Vol] K/uL NINF - 0.07 K/uL [facility] Immature granulocytes/100 WBC (Bld) 0.6 % [facility] Interpretation and review of laboratory results Abnormal [facility] Lymphocytes (Bld) [#/Vol] 1.76 10*3/uL 0.83 - 3.57 K/uL [facility] Lymphocytes/100 WBC (Bld) 37.1 % [facility] MCH (RBC) [Entitic mass] 27.8 pg 26.1 - 33.3 pg [facility] MCHC (RBC) [Mass/Vol] 32.7 g/dL 31.9 - 36.5 g/dL [facility] MCV (RBC) [Entitic vol] 85.0 fL 79.0 - 94.5 fL [facility] Monocytes (Bld) [#/Vol] 0.66 10*3/uL 0.24 - 0.93 K/uL [facility] Monocytes/100 WBC (Bld) 13.9 % [facility] Neutrophils (Bld) [#/Vol] 2.16 10*3/uL 1.57 - 6.19 K/uL [facility] Nucleated RBC/100 WBC (Bld) [Ratio] 0.0 % [facility] Platelet mean volume (Bld) [Entitic vol] 9.3 fL 8.7 - 12.3 fL [facility] Platelets (Bld) [#/Vol] 262 10*3/uL 146 - 337 K/uL [facility] RBC (Bld) [#/Vol] 4.46 10*6/uL [facility] Segmented neutrophils/100 WBC (Bld) 45.7 % [facility] WBC (Bld) [#/Vol] 4.74 10*3/uL 3.73 - 10. 10 K/uL [facility] CHEM 6 (LYTES, BUN CREA)on 0 08-28-2023 Anion gap [Moles/Vol] 13 mmol/L 7 - 17 mmol/L [facility] Chloride [Moles/Vol] 103 mmol/L 98 - 10 8 mmol/L [facility] CO2 [Moles/Vol] 22 mmol/L 21 - 31 mmol/L [facility] Creatinine [Mass/Vol] 1.62 mg/dL High 0.70 - 1.30 mg/dL [facility] eGFR, CKD-EPI, Male 52 Low - PINF [facility] Interpretation and review of laboratory results Abnormal [facility] Potassium [Moles/Vol] 4.3 mmol/L 3.5 - 5.0 mmol/L [facility] Sodium [Moles/Vol] 134 mmol/L Low 135 - 145 mmol/L [facility] Urea nitrogen [Mass/Vol] 22 mg/dL 7 - 25 mg/dL [facility] Urea nitrogen/Creatinine [Mass ratio] 14 mg/mg [facility] Portable XR Chest Viewson Radiology Study observation (narrative) [facility] Respiratory virus DNA+RNA NA A+probe Nom (Unsp spec)Ordered By: Dayami Harris on 08-28-2023 Adenovirus DNA ESTELITA+probe Nom (Unsp spec) Not detected Not [facility]ed [facility] B. parapertussis DNA ESTELITA+probe Ql (Unsp spec) Not detected Not Detected [facility] B. pertussis DNA ESTELITA+probe Ql (Unsp spec) Not detected Not Detected [facility] C. pneumoniae DNA ESTELITA+probe Ql (Unsp spec) Not detected Not Detected [facility] FLUAV RNA ESTELITA+probe Ql (Unsp spec) Not detected Not Detected [facility] FLUBV RNA ESTELITA+probe Ql (Unsp spec) Not detected Not Detected [facility] HCoV 229E RNA ESTELITA+non-probe Ql (Nph) Not detected [facility] HKU1 RNA ESTELITA+non-probe Ql (Nph) Not detected [facility] HCoV NL63 RNA ESTELITA+non-probe Ql (Nph) Not detected Not Detected [facility] HCoV OC43 RNA ESTELITA+non-probe Ql (Nph) Not detected Not Detected [facility] hMPV A RNA ESTELITA+probe Ql (Unsp spec) Not detected Not Detected [facility] Interpretation and review of laboratory results Normal [facility] M. pneumoniae DNA ESTELITA+probe Ql (Unsp spec) Not detected Not Detected [facility] Parainfluenza virus 1 RNA ESTELITA+probe Ql (Unsp spec) Not detected Not Detected [facility] Parainfluenza virus 2 RNA ESTELITA+probe Ql (Unsp spec) Not detected Not Detected [facility] Parainfluenza virus 3 RNA ESTELITA+probe Ql (Unsp spec) Not detected Not Detected [facility] Parainfluenza virus 4 RNA ESTELITA+probe Ql (Unsp spec) Not detected Not Detected [facility] Rhinovirus+Enterovirus RNA ESTELITA+probe Ql (Unsp spec) Not detected Not Detected [facility] RSV RNA ESTELITA+probe Ql (Unsp spec) Not detected Not Detected [facility] SARS-CoV-2 (COVID-19) RNA ESTELITA+probe Ql (Unsp spec) Not detected NOT DETECTED [facility] ALBUMINon 04-28-2023 Albumin [Mass/Vol] 4.0 g/dL Normal 3.4-5.0 [facility] Comment on above: Performed By: #### C MP #### [facility] [address] [place] [address] Dr. Dwight Waters ALKALINE PHOSPHAon ALP [Catalytic activity/Vol] 106 U/L Normal 46-116 [facility] Comment on above: Performed By: #### F [id number] #### [facility] [address] [place] [address] Dr. Dwight Waters BILIRUBIN CONJUGATED (DIRECT )on 04-28-2023 BILI, CONJUGATED 0.3 mg/dL Critically high 0.0-0.2 [facility] Comment on above: Performed By: #### C MP #### [facility] [address] [place] [address] Dr. Dwight Waters BILIRUBIN TOTALon 04-28-2023 Bilirubin [Mass/Vol] 1.4 mg/dL Critically high 0.2-1.0 [facility] Comment on above: Performed By: #### C MP #### [facility] [address] [place] [address] Dr. Dwight Waters BUNon 04-28-2023 Urea nitrogen [Mass/Vol] 12.0 mg/dL Normal 7.0-18.0 [facility] Comment on above: Performed By: #### U RTPCR #### [facility] [address] [place] [address] Dr. Dwight Waters CALCIUMon 04-28-2023 Calcium [Mass/Vol] 9.3 mg/dL Normal 8.5-10.1 [facility] Comment on above: Performed By: #### U RTPCR #### [facility] [address] [place] [address] Dr. Dwight Waters CBC AUTO DIFFon 04-28-2023 BASO # 0.1 103/ul Normal 0.0-0.1 [facility] Comment on above: Performed By: #### C BC #### [facility] [address] [place] [address] Dr. Dwight Waters Basophils/100 WBC (Bld) 0.9 % Normal 0.2-2.0 [facility] Comment on above: Performed By: #### C BC #### [facility] [address] [place] [address] Dr. Dwight Waters EO # 0.2 103/ul Normal 0.0-0.7 [facility] Comment on above: Performed By: #### C BC #### [facility] [address] [place] [address] Dr. Dwight Waters Eosinophils/100 WBC (Bld) 3.8 % Normal 0.9-7.0 [facility] Comment on above: Performed By: #### C BC #### [facility] [address] [place] [address] Dr. Dwight Waters Erythrocyte distribution width (RBC) [Ratio] 12.5 % Normal 11.0-15.0 [facility] Comment on above: Performed By: #### C BC #### [facility] [address] [place] [address] Dr. Dwight Waters Hematocrit (Bld) [Volume fraction] 49.8 % Normal 42.0-54.0 [facility] Comment on above: Performed By: #### C BC #### [facility] [address] [place] [address] Dr. Dwight Waters Hemoglobin (Bld) [Mass/Vol] 16.4 g/dL Normal 14.0-18.0 [facility] Comment on above: Performed By: #### C BC #### [facility] [address] [place] [address] Dr. Dwight Waters IG # 0.01 10e3/ul Normal 0.00-0.03 [facility] Comment on above: Performed By: #### C BC #### [facility] [address] [place] [address] Dr. Dwight Waters IG % 0.2 % Normal 0.0-0.5 [facility] Comment on above: Performed By: #### C BC #### [facility] [address] [place] [address] Dr. Dwight Waters LYMPH # 2.1 103/ul Normal 1.2-3.8 [facility] Comment on above: Performed By: #### C BC #### [facility] [address] [place] [address] Dr. Dwight Waters Lymphocytes/100 WBC (Bld) 39.1 % Normal 20.5-60.0 [facility] Comment on above: Performed By: #### C BC #### [facility] [address] [place] [address] Dr. Dwight Waters MANUAL DIFF REQ NO Normal [facility] Comment on above: Performed By: #### C BC #### [facility] [address] [place] [address] Dr. Dwight Waters MCH (RBC) [Entitic mass] 28.6 pg Normal 25.9-34.0 [facility] Comment on above: Performed By: #### C BC #### [facility] [address] [place] [address] Dr. Dwight Waters MCHC (RBC) [Mass/Vol] 32.9 g/dL Normal 29.9-35.2 [facility] Comment on above: Performed By: #### C BC #### [facility] [address] [place] [address] Dr. Dwight Waters MCV (RBC) [Entitic vol] 86.9 fL Normal 80.0-94.0 [facility] Comment on above: Performed By: #### C BC #### [facility] [address] [place] [address] Dr. Dwight Waters MONO # 0.6 103/ul Normal 0.3-0.8 [facility] Comment on above: Performed By: #### C BC #### [facility] [address] [place] [address] Dr. Dwight Waters Monocytes/100 WBC (Bld) 10.6 % Normal 1.7-12.0 [facility] Comment on above: Performed By: #### C BC #### [facility] [address] [place] [address] Dr. Dwight Waters NEUT # 2.5 103/ul Normal 1.4-6.5 [facility] Comment on above: Performed By: #### C BC #### [facility] [address] [place] [address] Dr. Dwight Waters Neutrophils/100 WBC (Bld) 45.4 % Normal 43.0-75.0 [facility] Comment on above: Performed By: #### C BC #### [facility] [address] [place] [address] Dr. Dwight Waters Platelet mean volume (Bld) [Entitic vol] 9.3 fL Critically low 9.5-13.5 [facility] Comment on above: Performed By: #### C BC #### [facility] [address] [place] [address] Dr. Dwight Waters PLT 248 103/ul Normal 150-450 [facility] Comment on above: Performed By: #### C BC #### [facility] [address] [place] [address] Dr. Dwight Waters RBC 5.73 106/ul Normal 4.70-6.10 [facility] Comment on above: Performed By: #### C BC #### [facility] [address] [place] [address] Dr. Dwight Waters WBC 5.5 103/ul Normal 4.0-11.0 [facility] Comment on above: Performed By: #### C BC #### [facility] [address] [address] [address] Dwight Waters CHLORIDEon 04-28-2023 Chloride [Moles/Vol] 107 mmol/L Normal 98-107 [facility] Comment on above: Performed By: #### U RTPCR #### [facility] [address] [place] [address] Dr. Dwight Waters CO2on 04-28-2023 CO2 [Moles/Vol] 28.9 mmol/L Normal 21.0-32.0 [facility] Comment on above: Performed By: #### U RTPCR #### [facility] [address] [place] [address] Dr. Dwight Waters CREATININEon 04-28-2023 Creatinine [Mass/Vol] 1.17 mg/dL Normal 0.70-1.30 [facility] Comment on above: Performed By: #### U RTPCR #### [facility] [address] [place] [address] Dr. Dwight Waters EGFR-AF KENYAN >60 Normal >=60 [facility] Comment on above: Performed By: #### U RTPCR #### [facility] [address] [place] [address] Dr. Dwight Waters EGFR-NON AF KENYAN >60 Normal >=60 [facility] Comment on above: Performed By: #### U RTPCR #### [facility] [address] [place] [address] Dr. Dwight Waters GGTon 04-28-2023 Gamma glutamyl transferase [Catalytic activity/Vol] 27 U/L Normal 15-85 [facility] Comment on above: Performed By: #### U RTPCR #### [facility] [address] [place] [address] Dr. Dwight Waters GLUCOSE BLOODon 04-28-2023 Glucose [Mass/Vol] 110 mg/dL Critically high 74-106 [facility] Comment on above: Performed By: #### U RTPCR #### [facility] [address] [place] [address] Dr. Dwight Waters MAGNESIUMon 04-28-2023 Magnesium [Mass/Vol] 1.7 mg/dL Critically low 1.8-2.4 [facility] Comment on above: Performed By: #### U RTPCR #### [facility] [address] [place] [address] Dr. Dwight Waters NAon 04-28-2023 Sodium [Moles/Vol] 144 mmol/L Normal 136-145 [facility] Comment on above: Performed By: #### U RTPCR #### [facility] [address] [place] [address] Dr. Dwight Waters PHOSPHORUSon 04-28-2023 Phosphate [Mass/Vol] 3.2 mg/dL Normal 2.6-4.7 [facility] Comment on above: Performed By: #### U RTPCR #### [facility] [address] [place] [address] Dr. Dwight Waters POTASSIUMon 04-28-2023 Potassium [Moles/Vol] 4.0 mmol/L Normal 3.5-5.1 [facility] Comment on above: Performed By: #### U RTPCR #### [facility] [address] [place] [address] Dr. Dwight Waters SGOToamanda 04-28-2023 AST [Catalytic activity/Vol] 25 U/L Normal 15-37 [facility] Comment on above: Performed By: #### C MP #### [facility] [address] [place] [address] Dr. Dwight Waters SGPTon 04-28-2023 ALT [Catalytic activity/Vol] 40 U/L Normal 16-63 [facility] Comment on above: Performed By: #### C MP #### [facility] [address] [place] [address] Dr. Dwight Waters URINE T PROTEIN CREAT RATIOo n 04-28-2023 Protein (U) [Mass/Vol] 10.1 mg/dL Normal <=12.0 [facility] Comment on above: Performed By: #### U RTPCR #### [facility] [address] [place] [address] Dr. Dwight Waters UR PROT CREAT RAT 0.[address] [facility] Comment on above: Performed By: #### U RTPCR #### [facility] [address] [place] [address] Dr. Dwight Waters URINE CREAT 74.40 mg/dL Normal 20.00-300.00 [facility] Comment on above: Performed By: #### U RTPCR #### [facility] [address] [place] [address] Dr. Dwight Waters BK VIRUS PCR QUANTon 023 BKV DNA QUANT PCR PLASMA Negative Normal Negative [facility] Comment on above: Result Comment: No B K DNA detected. . The linear range of the assay is 22 - 100,000,000 IU/mL. Performed By: #### B KVIRUS #### [facility] [address] [place] [address] Dr. Dwight Waters Log10 BKV DNA Plasma Normal [facility] Comment on above: Performed By: #### B KVIRUS #### [facility] [address] [place] [address] Dr. Dwight Waters FK506 (TACROLIMUS) WHOLE BLO ODon 03-04-2023 Tacrolimus (FK506), Blood 5.9 ng/mL Normal 2.0-20.0 [facility] Comment on above: Result Comment: Trou gh (immediately following transplant) 15.0 . Trough (steady state, 2 weeks or more after transplant): 3.0 - 8.0 . Performed by LC-MS/MS technology. Performed By: #### C MP #### [facility] [address] [place] [address] Dr. Dwight Waters ALBUMINon 03-02-2023 Albumin [Mass/Vol] 3.9 g/dL Normal 3.4-5.0 [facility] Comment on above: Performed By: #### U RTPCR #### [facility] [address] [place] [address] Dr. Dwight Waters ALKALINE PHOSPHAon ALP [Catalytic activity/Vol] 105 U/L Normal 46-116 [facility] Comment on above: Performed By: #### U RTPCR #### [facility] [address] [place] [address] Dr. Dwight Waters BILIRUBIN CONJUGATED (DIRECT )on 03-02-2023 BILI, CONJUGATED 0.2 mg/dL Normal 0.0-0.2 [facility] Comment on above: Performed By: #### U RTPCR #### [facility] [address] [place] [address] Dr. Dwight Waters BILIRUBIN TOTALon 03-02-2023 Bilirubin [Mass/Vol] 0.9 mg/dL Normal 0.2-1.0 [facility] Comment on above: Performed By: #### U RTPCR #### [facility] [address] [place] [address] Dr. Dwight Waters CBC AUTO DIFFon 03-02-2023 BASO # 0.1 103/ul Normal 0.0-0.1 [facility] Comment on above: Performed By: #### C BC #### [facility] [address] [place] [address] Dr. Dwight Waters Basophils/100 WBC (Bld) 0.9 % Normal 0.2-2.0 [facility] Comment on above: Performed By: #### C BC #### [facility] [address] [place] [address] Dr. Dwight Waters EO # 0.2 103/ul Normal 0.0-0.7 [facility] Comment on above: Performed By: #### C BC #### [facility] [address] [place] [address] Dr. Dwight Waters Eosinophils/100 WBC (Bld) 3.5 % Normal 0.9-7.0 [facility] Comment on above: Performed By: #### C BC #### [facility] [address] [place] [address] Dr. Dwight Waters Erythrocyte distribution width (RBC) [Ratio] 12.7 % Normal 11.0-15.0 [facility] Comment on above: Performed By: #### C BC #### [facility] [address] [place] [address] Dr. Dwight Waters Hematocrit (Bld) [Volume fraction] 48.2 % Normal 42.0-54.0 [facility] Comment on above: Performed By: #### C BC #### [facility] [address] [place] [address] Dr. Dwight Waters Hemoglobin (Bld) [Mass/Vol] 15.9 g/dL Normal 14.0-18.0 [facility] Comment on above: Performed By: #### C BC #### [facility] [address] [place] [address] Dr. Dwight Waters IG # 0.01 10e3/ul Normal 0.00-0.03 [facility] Comment on above: Performed By: #### C BC #### [facility] [address] [place] [address] Dr. Dwight Waters IG % 0.2 % Normal 0.0-0.5 [facility] Comment on above: Performed By: #### C BC #### [facility] [address] [place] [address] Dr. Dwight Waters LYMPH # 2.1 103/ul Normal 1.2-3.8 [facility] Comment on above: Performed By: #### C BC #### [facility] [address] [place] [address] Dr. Dwight Waters Lymphocytes/100 WBC (Bld) 37.4 % Normal 20.5-60.0 [facility] Comment on above: Performed By: #### C BC #### [facility] [address] [place] [address] Dr. Dwight Waters MANUAL DIFF REQ NO Normal [facility] Comment on above: Performed By: #### C BC #### [facility] [address] [place] [address] Dr. Dwight Waters MCH (RBC) [Entitic mass] 28.3 pg Normal 25.9-34.0 [facility] Comment on above: Performed By: #### C BC #### [facility] [address] [place] [address] Dr. Dwight Waters MCHC (RBC) [Mass/Vol] 33.0 g/dL Normal 29.9-35.2 [facility] Comment on above: Performed By: #### C BC #### [facility] [address] [address] [address] Dwight Waters MCV (RBC) [Entitic vol] 85.8 fL Normal 80.0-94.0 [facility] Comment on above: Performed By: #### C BC #### [facility] [address] [address] [address] Dwight Waters MONO # 0.6 103/ul Normal 0.3-0.8 [facility] Comment on above: Performed By: #### C BC #### [facility] [address] [address] [address] Dwight Waters Monocytes/100 WBC (Bld) 10.2 % Normal 1.7-12.0 [facility] Comment on above: Performed By: #### C BC #### [facility] [address] [place] [address] Dr. Dwight Waters NEUT # 2.7 103/ul Normal 1.4-6.5 [facility] Comment on above: Performed By: #### C BC #### [facility] [address] [place] [address] Dr. Dwight Waters Neutrophils/100 WBC (Bld) 47.8 % Normal 43.0-75.0 [facility] Comment on above: Performed By: #### C BC #### [facility] [address] [place] [address] Dr. Dwight Waters Platelet mean volume (Bld) [Entitic vol] 9.3 fL Critically low 9.5-13.5 [facility] Comment on above: Performed By: #### C BC #### [facility] [address] [place] [address] Dr. Dwight Waters PLT 241 103/ul Normal 150-450 [facility] Comment on above: Performed By: #### C BC #### [facility] [address] [place] [address] Dr. Dwight Waters RBC 5.62 106/ul Normal 4.70-6.10 [facility] Comment on above: Performed By: #### C BC #### [facility] [address] [place] [address] Dr. Dwight Waters WBC 5.7 103/ul Normal 4.0-11.0 [facility] Comment on above: Performed By: #### C BC #### [facility] [address] [place] [address] Dr. Dwight Waters GGTon 03-02-2023 Gamma glutamyl transferase [Catalytic activity/Vol] 25 U/L Normal 15-85 [facility] Comment on above: Performed By: #### U RTPCR #### [facility] [address] [place] [address] Dr. Dwight Waters MAGNESIUMon 03-02-2023 Magnesium [Mass/Vol] 1.6 mg/dL Critically low 1.8-2.4 [facility] Comment on above: Performed By: #### U RTPCR #### [facility] [address] [place] [address] Dr. Dwight Waters PHOSPHORUSon 03-02-2023 Phosphate [Mass/Vol] 3.6 mg/dL Normal 2.6-4.7 [facility] Comment on above: Performed By: #### U RTPCR #### [facility] [address] [place] [address] Dr. Dwight Waters PROF CHEM 8 (BAS METB)on Anion gap [Moles/Vol] 9.4 mmol/L Normal [facility] Comment on above: Performed By: #### U RTPCR #### [facility] [address] [place] [address] Dr. Dwight Waters Calcium [Mass/Vol] 9.3 mg/dL Normal 8.5-10.1 [facility] Comment on above: Performed By: #### U RTPCR #### [facility] [address] [place] [address] Dr. Dwight Waters Chloride [Moles/Vol] 108 mmol/L Critically high 98-107 [facility] Comment on above: Performed By: #### U RTPCR #### [facility] [address] [place] [address] Dr. Dwight Waters CO2 [Moles/Vol] 27.2 mmol/L Normal 21.0-32.0 [facility] Comment on above: Performed By: #### U RTPCR #### [facility] [facility] [address] [address] [address] Dwight Waters Creatinine [Mass/Vol] 1.12 mg/dL Normal 0.70-1.30 [facility] Comment on above: Performed By: #### U RTPCR #### [facility] [address] [address] [address] Dwight Waters EGFR-AF KENYAN >60 Normal >=60 [facility] Comment on above: Performed By: #### U RTPCR #### [facility] [address] [address] [address] Dwight Waters EGFR-NON AF KENYAN >60 Normal >=60 [facility] Comment on above: Performed By: #### U RTPCR #### [facility] [address] [place] [address] Dr. Dwight Waters Glucose [Mass/Vol] 113 mg/dL Critically high 74-106 [facility] Comment on above: Performed By: #### U RTPCR #### [facility] [address] [address] [address] Dwight Waters Potassium [Moles/Vol] 3.6 mmol/L Normal 3.5-5.1 [facility] Comment on above: Performed By: #### U RTPCR #### [facility] [address] [place] [address] Dr. Dwight Waters Sodium [Moles/Vol] 141 mmol/L Normal 136-145 [facility] Comment on above: Performed By: #### U RTPCR #### [facility] [address] [address] [address] Dwight Waters Urea nitrogen [Mass/Vol] 14.0 mg/dL Normal 7.0-18.0 [facility] Comment on above: Performed By: #### U RTPCR #### [facility] [address] [address] [address] Dwight Waters Urea nitrogen/Creatinine [Mass ratio] 12.5 mg/mg Normal [facility] Comment on above: Performed By: #### U RTPCR #### [facility] [address] [place] [address] Dr. Dwight Waters SGOTon 03-02-2023 AST [Catalytic activity/Vol] 20 U/L Normal 15-37 [facility] Comment on above: Performed By: #### U RTPCR #### [facility] [address] [place] [address] Dr. Dwight Waters SGPTon 03-02-2023 ALT [Catalytic activity/Vol] 30 U/L Normal 16-63 [facility] Comment on above: Performed By: #### U RTPCR #### [facility] [address] [place] [address] Dr. Dwight Waters URINE T PROTEIN CREAT RATIOo n 03-02-2023 Protein (U) [Mass/Vol] 10.3 mg/dL Normal <=12.0 [facility] Comment on above: Performed By: #### U RTPCR #### [facility] [address] [place] [address] Dr. Dwight Waters UR PROT CREAT RAT 0.[address] [facility] Comment on above: Performed By: #### U RTPCR #### [facility] [address] [place] [address] Dr. Dwight Waters URINE CREAT 68.96 mg/dL Normal 20.00-300.00 [facility] Comment on above: Performed By: #### U RTPCR #### [facility] [address] [place] [address] Dr. Dwight Waters BK VIRUS PCR QUANTon 023 BKV DNA QUANT PCR PLASMA Negative Normal Negative [facility] Comment on above: Result Comment: No B K DNA detected. . The linear range of the assay is 22 - 100,000,000 IU/mL. Performed By: #### C MP #### [facility] [address] [place] [address] Dr. Dwight Waters Log10 BKV DNA Plasma Normal [facility] Comment on above: Performed By: #### C MP #### [facility] [address] [place] [address] Dr. Dwight Waters FK506 (TACROLIMUS) WHOLE BLO ODon 12-31-2022 Tacrolimus (FK506), Blood 5.6 ng/mL Normal 2.0-20.0 [facility] Comment on above: Result Comment: Trou gh (immediately following transplant) 15.0 . Trough (steady state, 2 weeks or more after transplant): 3.0 - 8.0 . Performed by LC-MS/MS technology. Performed By: #### C MP #### [facility] [address] [place] [address] Dr. Dwight Waters ALKALINE PHOSPHAon ALP [Catalytic activity/Vol] 96 U/L Normal 46-116 [facility] Comment on above: Performed By: #### C BC #### [facility] [address] [place] [address] Dr. Dwight Waters BILIRUBIN CONJUGATED (DIRECT )on 12-29-2022 BILI, CONJUGATED 0.3 mg/dL Critically high 0.0-0.2 [facility] Comment on above: Performed By: #### C BC #### [facility] [address] [place] [address] Dr. Dwight Waters BILIRUBIN TOTALon 12-29-2022 Bilirubin [Mass/Vol] 1.1 mg/dL Critically high 0.2-1.0 [facility] Comment on above: Performed By: #### C BC #### [facility] [address] [place] [address] Dr. Dwight Waters CBC AUTO DIFFon 12-29-2022 BASO # 0.1 103/ul Normal 0.0-0.1 [facility] Comment on above: Performed By: #### C MP #### [facility] [address] [place] [address] Dr. Dwight Waters Basophils/100 WBC (Bld) 0.8 % Normal 0.2-2.0 [facility] Comment on above: Performed By: #### C MP #### [facility] [address] [place] [address] Dr. Dwight Waters EO # 0.2 103/ul Normal 0.0-0.7 [facility] Comment on above: Performed By: #### C MP #### [facility] [address] [place] [address] Dr. Dwight Waters Eosinophils/100 WBC (Bld) 3.0 % Normal 0.9-7.0 [facility] Comment on above: Performed By: #### C MP #### [facility] [address] [place] [address] Dr. Dwight Waters Erythrocyte distribution width (RBC) [Ratio] 12.9 % Normal 11.0-15.0 [facility] Comment on above: Performed By: #### C MP #### [facility] [address] [place] [address] Dr. Dwight Waters Hematocrit (Bld) [Volume fraction] 46.9 % Normal 42.0-54.0 [facility] Comment on above: Performed By: #### C MP #### [facility] [address] [place] [address] Dr. Dwight Waters Hemoglobin (Bld) [Mass/Vol] 16.1 g/dL Normal 14.0-18.0 [facility] Comment on above: Performed By: #### C MP #### [facility] [address] [place] [address] Dr. Dwight Waters IG # 0.01 10e3/ul Normal 0.00-0.03 [facility] Comment on above: Performed By: #### C MP #### [facility] [address] [place] [address] Dr. Dwight Waters IG % 0.2 % Normal 0.0-0.5 [facility] Comment on above: Performed By: #### C MP #### [facility] [address] [place] [address] Dr. Dwight Waters LYMPH # 1.8 103/ul Normal 1.2-3.8 [facility] Comment on above: Performed By: #### C MP #### [facility] [address] [place] [address] Dr. Dwight Waters Lymphocytes/100 WBC (Bld) 27.9 % Normal 20.5-60.0 [facility] Comment on above: Performed By: #### C MP #### [facility] [address] [place] [address] Dr. Dwight Waters MANUAL DIFF REQ NO Normal [facility] Comment on above: Performed By: #### C MP #### [facility] [address] [place] [address] Dr. Dwight Waters MCH (RBC) [Entitic mass] 28.5 pg Normal 25.9-34.0 [facility] Comment on above: Performed By: #### C MP #### [facility] [address] [place] [address] Dr. Dwight Waters MCHC (RBC) [Mass/Vol] 34.3 g/dL Normal 29.9-35.2 [facility] Comment on above: Performed By: #### C MP #### [facility] [address] [place] [address] Dr. Dwight Waters MCV (RBC) [Entitic vol] 83.2 fL Normal 80.0-94.0 [facility] Comment on above: Performed By: #### C MP #### [facility] [address] [place] [address] Dr. Dwight Waters MONO # 0.5 103/ul Normal 0.3-0.8 [facility] Comment on above: Performed By: #### C MP #### [facility] [address] [place] [address] Dr. Dwight Waters Monocytes/100 WBC (Bld) 8.1 % Normal 1.7-12.0 [facility] Comment on above: Performed By: #### C MP #### [facility] [address] [place] [address] Dr. Dwight Waters NEUT # 3.8 103/ul Normal 1.4-6.5 [facility] Comment on above: Performed By: #### C MP #### [facility] [address] [place] [address] Dr. Dwight Waters Neutrophils/100 WBC (Bld) 60.0 % Normal 43.0-75.0 [facility] Comment on above: Performed By: #### C MP #### [facility] [address] [place], [place] [id number] Dr. Dwight Waters Platelet mean volume (Bld) [Entitic vol] 9.2 fL Critically low 9.5-13.5 [facility] Comment on above: Performed By: #### C MP #### [facility] [address] [place] [address] Dr. Dwight Waters PLT 225 103/ul Normal 150-450 [facility] Comment on above: Performed By: #### C MP #### [facility] [address] [place] [address] Dr. Dwight Waters RBC 5.64 106/ul Normal 4.70-6.10 [facility] Comment on above: Performed By: #### C MP #### [facility] [address] [place] [address] Dr. Dwight Waters WBC 6.3 103/ul Normal 4.0-11.0 [facility] Comment on above: Performed By: #### C MP #### [facility] [address] [place] [address] Dr. Dwight Waters GGTon 12-29-2022 Gamma glutamyl transferase [Catalytic activity/Vol] 24 U/L Normal 15-85 [facility] Comment on above: Performed By: #### C MP #### [facility] [address] [place] [address] Dr. Dwight Waters LIPID PROFILEon 12-29-2022 CHOL-HDL RATIO NORM SEE BELOW Normal [facility] Comment on above: Result Comment: 3.3 - 4.4 LOW RISK 4.4 - 7.1 AVERAGE RISK 7.1 - 11.0 MODERATE RISK >11.0 HIGH RISK Performed By: #### U RTPCR #### [facility] [address] [place] [address] Dr. Dwight Waters Cholesterol [Mass/Vol] 87 mg/dL Normal <=200 [facility] Comment on above: Performed By: #### U RTPCR #### [facility] [address] [place] [address] Dr. Dwight Waters Cholesterol in HDL [Mass/Vol] 44 mg/dL Normal 40-60 [facility] Comment on above: Performed By: #### U RTPCR #### [facility] [address] [address] [address] Dwight Waters Cholesterol in LDL [Mass/Vol] 33.0 mg/dL Normal [facility] Comment on above: Performed By: #### U RTPCR #### [facility] [address] [address] [address] Dwight Waters Cholesterol.total/Chol esterol in HDL [Mass ratio] 2.0 {ratio} Normal [facility] Comment on above: Performed By: #### U RTPCR #### [facility] [address] [address] [address] Dwight Waters HDL NORMAL > or = 60 mg/dl - LO W CARDIOVASCULAR RISK <40 mg/dl - HIGH CARDIOVASCULAR RISK Normal [facility] Comment on above: Performed By: #### U RTPCR #### [facility] [address] [place] [address] Dr. Dwight Waters LDL CALC NORMAL SEE BELOW Normal [facility] Comment on above: Result Comment: <100 mg/dl OPTIMAL 100 - 129 mg/dl NEAR OR ABOVE OPTIMAL 130 - 159 mg/dl BORDERLINE HIGH 160 - 189 mg/dl HIGH >190 mg/dl VERY HIGH Performed By: #### U RTPCR #### [facility] [address] [place] [address] Dr. Dwight Waters Triglyceride [Mass/Vol] 50 mg/dL Normal <=150 [facility] Comment on above: Performed By: #### U RTPCR #### [facility] [address] [place] [address] Dr. Dwight Waters VLDL CALC 10.0 mg/dL Normal [facility] Comment on above: Performed By: #### U RTPCR #### [facility] [address] [place] [address] Dr. Dwight Waters MAGNESIUMon 12-29-2022 Magnesium [Mass/Vol] 1.6 mg/dL Critically low 1.8-2.4 [facility] Comment on above: Performed By: #### C BC #### [facility] [address] [place] [address] Dr. Dwight Waters RENAL FUNCTION PANELon 12-29 Albumin [Mass/Vol] 3.9 g/dL Normal 3.4-5.0 [facility] Comment on above: Performed By: #### C BC #### [facility] [address] [address] [address] Dwight Waters Calcium [Mass/Vol] 9.2 mg/dL Normal 8.5-10.1 [facility] Comment on above: Performed By: #### C BC #### [facility] [address] [address] [address] Dwight Waters Chloride [Moles/Vol] 109 mmol/L Critically high 98-107 [facility] Comment on above: Performed By: #### C BC #### [facility] [address] [place] [address] Dr. Dwight Waters CO2 [Moles/Vol] 27.0 mmol/L Normal 21.0-32.0 [facility] Comment on above: Performed By: #### C BC #### [facility] [address] [place] [address] Dr. Dwight Waters Creatinine [Mass/Vol] 1.02 mg/dL Normal 0.70-1.30 [facility] Comment on above: Performed By: #### C BC #### [facility] [address] [place] [address] Dr. Dwight Waters EGFR-AF KENYAN >60 Normal >=60 [facility] Comment on above: Performed By: #### C BC #### [facility] [address] [place] [address] Dr. Dwight Waters EGFR-NON AF KENYAN >60 Normal >=60 [facility] Comment on above: Performed By: #### C BC #### [facility] [address] [place] [address] Dr. Dwight Waters Glucose [Mass/Vol] 117 mg/dL Critically high 74-106 [facility] Comment on above: Performed By: #### C BC #### [facility] [address] [place] [address] Dr. Dwight Waters Phosphate [Mass/Vol] 3.2 mg/dL Normal 2.6-4.7 [facility] Comment on above: Performed By: #### C BC #### [facility] [address] [place] [address] Dr. Dwight Waters Potassium [Moles/Vol] 4.1 mmol/L Normal 3.5-5.1 [facility] Comment on above: Performed By: #### C BC #### [facility] [address] [place] [address] Dr. Dwight Waters Sodium [Moles/Vol] 144 mmol/L Normal 136-145 [facility] Comment on above: Performed By: #### C BC #### [facility] [address] [place] [address] Dr. Dwight Waters Urea nitrogen [Mass/Vol] 13.0 mg/dL Normal 7.0-18.0 [facility] Comment on above: Performed By: #### C BC #### [facility] [address] [place] [address] Dr. Dwight Waters SGOTon 12-29-2022 AST [Catalytic activity/Vol] 21 U/L Normal 15-37 [facility] Comment on above: Performed By: #### C BC #### [facility] [address] [place] [address] Dr. Dwight Waters SGPTon 12-29-2022 ALT [Catalytic activity/Vol] 32 U/L Normal 16-63 [facility] Comment on above: Performed By: #### C BC #### [facility] [address] [place] [address] Dr. Dwight Waters URINE T PROTEIN CREAT RATIOo n 12-29-2022 Protein (U) [Mass/Vol] 14.3 mg/dL Critically high <=12.0 [facility] Comment on above: Performed By: #### U RTPCR #### [facility] [address] [place] [address] Dr. Dwight Waters UR PROT CREAT RAT 0.[address] [facility] Comment on above: Performed By: #### U RTPCR #### [facility] [address] [place] [address] Dr. Dwight Waters URINE CREAT 86.58 mg/dL Normal 20.00-300.00 [facility] Comment on above: Performed By: #### U RTPCR #### [facility] [address] [place] [address] Dr. Dwight Waters FK506 (TACROLIMUS) WHOLE BLO ODon 11-06-2022 Tacrolimus (FK506), Blood 4.9 ng/mL Normal 2.0-20.0 [facility] Comment on above: Result Comment: Trou gh (immediately following transplant) 15.0 . Trough (steady state, 2 weeks or more after transplant): 3.0 - 8.0 . Performed by LC-MS/MS technology. Performed By: #### U RTPCR #### [facility] [address] [place] [address] Dr. Dwight Waters ALKALINE PHOSPHAon ALP [Catalytic activity/Vol] 86 U/L Normal 46-116 [facility] Comment on above: Performed By: #### U RTPCR #### [facility] [address] [place] [address] Dr. Dwight Waters BILIRUBIN CONJUGATED (DIRECT )on 11-04-2022 BILI, CONJUGATED 0.2 mg/dL Normal 0.0-0.2 [facility] Comment on above: Performed By: #### U RTPCR #### [facility] [address] [place] [address] Dr. Dwight Waters BILIRUBIN TOTALon 11-04-2022 Bilirubin [Mass/Vol] 0.8 mg/dL Normal 0.2-1.0 [facility] Comment on above: Performed By: #### U RTPCR #### [facility] [address] [place] [address] Dr. Dwight Waters CBC AUTO DIFFon 11-04-2022 BASO # 0.1 103/ul Normal 0.0-0.1 [facility] Comment on above: Performed By: #### U RTPCR #### [facility] [address] [place] [address] Dr. Dwight Waters Basophils/100 WBC (Bld) 0.9 % Normal 0.2-2.0 [facility] Comment on above: Performed By: #### U RTPCR #### [facility] [address] [place] [address] Dr. Dwight Waters EO # 0.2 103/ul Normal 0.0-0.7 [facility] Comment on above: Performed By: #### U RTPCR #### [facility] [address] [place] [address] Dr. Dwight Waters Eosinophils/100 WBC (Bld) 3.7 % Normal 0.9-7.0 [facility] Comment on above: Performed By: #### U RTPCR #### [facility] [address] [place] [address] Dr. Dwight Waters Erythrocyte distribution width (RBC) [Ratio] 12.9 % Normal 11.0-15.0 [facility] Comment on above: Performed By: #### U RTPCR #### [facility] [address] [place] [address] Dr. Dwight Waters Hematocrit (Bld) [Volume fraction] 48.3 % Normal 42.0-54.0 [facility] Comment on above: Performed By: #### U RTPCR #### [facility] [address] [place] [address] Dr. Dwight Waters Hemoglobin (Bld) [Mass/Vol] 15.6 g/dL Normal 14.0-18.0 [facility] Comment on above: Performed By: #### U RTPCR #### [facility] [address] [place] [address] Dr. Dwight Waters IG # 0.01 10e3/ul Normal 0.00-0.03 [facility] Comment on above: Performed By: #### U RTPCR #### [facility] [address] [place] [address] Dr. Dwight Waters IG % 0.2 % Normal 0.0-0.5 [facility] Comment on above: Performed By: #### U RTPCR #### [facility] [address] [place] [address] Dr. Dwight Waters LYMPH # 1.9 103/ul Normal 1.2-3.8 [facility] Comment on above: Performed By: #### U RTPCR #### [facility] [address] [address] [address] Dwight Waters Lymphocytes/100 WBC (Bld) 33.0 % Normal 20.5-60.0 [facility] Comment on above: Performed By: #### U RTPCR #### [facility] [address] [address] [address] Dwight Waters MANUAL DIFF REQ NO Normal [facility] Comment on above: Performed By: #### U RTPCR #### [facility] [address] [address] [address] Dwight Waters MCH (RBC) [Entitic mass] 27.6 pg Normal 25.9-34.0 [facility] Comment on above: Performed By: #### U RTPCR #### [facility] [address] [place] [address] Dr. Dwight Waters MCHC (RBC) [Mass/Vol] 32.3 g/dL Normal 29.9-35.2 [facility] Comment on above: Performed By: #### U RTPCR #### [facility] [address] [place] [address] Dr. Dwight Waters MCV (RBC) [Entitic vol] 85.5 fL Normal 80.0-94.0 [facility] Comment on above: Performed By: #### U RTPCR #### [facility] [address] [place] [address] Dr. Dwight Waters MONO # 0.5 103/ul Normal 0.3-0.8 [facility] Comment on above: Performed By: #### U RTPCR #### [facility] [address] [place] [address] Dr. Dwight Waters Monocytes/100 WBC (Bld) 8.8 % Normal 1.7-12.0 [facility] Comment on above: Performed By: #### U RTPCR #### [facility] [address] [place] [address] Dr. Dwight Waters NEUT # 3.1 103/ul Normal 1.4-6.5 [facility] Comment on above: Performed By: #### U RTPCR #### [facility] [address] [address] [address] Dwight Waters Neutrophils/100 WBC (Bld) 53.4 % Normal 43.0-75.0 [facility] Comment on above: Performed By: #### U RTPCR #### [facility] [address] [address] [address] Dwight Waters Platelet mean volume (Bld) [Entitic vol] 9.2 fL Critically low 9.5-13.5 [facility] Comment on above: Performed By: #### U RTPCR #### [facility] [address] [address] [address] Dwight Waters PLT 255 103/ul Normal 150-450 [facility] Comment on above: Performed By: #### U RTPCR #### [facility] [address] [place] [address] Dr. Dwight Waters RBC 5.65 106/ul Normal 4.70-6.10 [facility] Comment on above: Performed By: #### U RTPCR #### [facility] [address] [address] [address] Dwight Waters WBC 5.7 103/ul Normal 4.0-11.0 [facility] Comment on above: Performed By: #### U RTPCR #### [facility] [address] [place] [address] Dr. Dwight Waters GGTon 11-04-2022 Gamma glutamyl transferase [Catalytic activity/Vol] 22 U/L Normal 15-85 [facility] Comment on above: Performed By: #### U RTPCR #### [facility] [address] [place] [address] Dr. Dwight Waters MAGNESIUMon 11-04-2022 Magnesium [Mass/Vol] 1.8 mg/dL Normal 1.8-2.4 [facility] Comment on above: Performed By: #### U RTPCR #### [facility] [address] [place] [address] Dr. Dwight Waters RENAL FUNCTION PANELon 11-04 Albumin [Mass/Vol] 3.8 g/dL Normal 3.4-5.0 [facility] Comment on above: Performed By: #### U RTPCR #### [facility] [address] [place] [address] Dr. Dwight Waters Calcium [Mass/Vol] 9.3 mg/dL Normal 8.5-10.1 [facility] Comment on above: Performed By: #### U RTPCR #### [facility] [address] [address] [address] Dwight Waters Chloride [Moles/Vol] 107 mmol/L Normal 98-107 [facility] Comment on above: Performed By: #### U RTPCR #### [facility] [address] [place] [address] Dr. Dwight Waters CO2 [Moles/Vol] 29.2 mmol/L Normal 21.0-32.0 [facility] Comment on above: Performed By: #### U RTPCR #### [facility] [address] [place] [address] Dr. Dwight Waters Creatinine [Mass/Vol] 1.07 mg/dL Normal 0.70-1.30 [facility] Comment on above: Performed By: #### U RTPCR #### [facility] [address] [place] [address] Dr. Dwight Waters EGFR-AF KENYAN >60 Normal >=60 [facility] Comment on above: Performed By: #### U RTPCR #### [facility] [address] [place] [address] Dr. Dwight Waters EGFR-NON AF KENYAN >60 Normal >=60 [facility] Comment on above: Performed By: #### U RTPCR #### [facility] [address] [place] [address] Dr. Dwight Waters Glucose [Mass/Vol] 106 mg/dL Normal 74-106 [facility] Comment on above: Performed By: #### U RTPCR #### [facility] [address] [place] [address] Dr. Dwight Waters Phosphate [Mass/Vol] 2.8 mg/dL Normal 2.6-4.7 [facility] Comment on above: Performed By: #### U RTPCR #### [facility] [address] [place] [address] Dr. Dwight Waters Potassium [Moles/Vol] 4.1 mmol/L Normal 3.5-5.1 [facility] Comment on above: Performed By: #### U RTPCR #### [facility] [address] [place] [address] Dr. Dwight Waters Sodium [Moles/Vol] 143 mmol/L Normal 136-145 [facility] Comment on above: Performed By: #### U RTPCR #### [facility] [address] [place] [address] Dr. Dwight Waters Urea nitrogen [Mass/Vol] 12.0 mg/dL Normal 7.0-18.0 [facility] Comment on above: Performed By: #### U RTPCR #### [facility] [address] [place] [address] Dr. Dwight OLVERAOToamanda 11-04-2022 AST [Catalytic activity/Vol] 19 U/L Normal 15-37 [facility] Comment on above: Performed By: #### U RTPCR #### [facility] [address] [place] [address] Dr. Dwight Waters SGPTon 11-04-2022 ALT [Catalytic activity/Vol] 28 U/L Normal 16-63 [facility] Comment on above: Performed By: #### U RTPCR #### [facility] [address] [place] [address] Dr. Dwight Waters URINE T PROTEIN CREAT RATIOo n 11-04-2022 Protein (U) [Mass/Vol] 10.7 mg/dL Normal <=12.0 [facility] Comment on above: Performed By: #### U RTPCR #### [facility] [address] [place] [address] Dr. Dwight Waters UR PROT CREAT RAT 0.[address] [facility] Comment on above: Performed By: #### U RTPCR #### [facility] [address] [place] [address] Dr. Dwight Waters URINE CREAT 84.50 mg/dL Normal 20.00-300.00 [facility] Comment on above: Performed By: #### U RTPCR #### [facility] [address] [place] [address] Dr. Dwight Waters FK506 (TACROLIMUS) WHOLE BLO ODon 09-18-2022 Tacrolimus (FK506), Blood 4.6 ng/mL Normal 2.0-20.0 [facility] Comment on above: Result Comment: Trou gh (immediately following transplant) 15.0 . Trough (steady state, 2 weeks or more after transplant): 3.0 - 8.0 . Performed by LC-MS/MS technology. Performed By: #### U RTPCR #### [facility] [address] [place] [address] Dr. Dwight Waters BK VIRUS PCR QUANTon 022 BKV DNA QUANT PCR PLASMA Negative Normal Negative [facility] Comment on above: Result Comment: No B K DNA detected. . The linear range of the assay is 22 - 100,000,000 IU/mL. Performed By: #### U RTPCR #### [facility] [address] [place] [address] Dr. Dwight Waters Log10 BKV DNA Plasma Normal [facility] Comment on above: Performed By: #### U RTPCR #### [facility] [address] [place] [address] Dr. Dwight Waters ALKALINE PHOSPHAon ALP [Catalytic activity/Vol] 92 U/L Normal 46-116 [facility] Comment on above: Performed By: #### U RTPCR #### [facility] [address] [place] [address] Dr. Dwight Waters BILIRUBIN CONJUGATED (DIRECT )on 09-15-2022 BILI, CONJUGATED 0.3 mg/dL Critically high 0.0-0.2 [facility] Comment on above: Performed By: #### U RTPCR #### [facility] [address] [place] [address] Dr. Dwight Waters BILIRUBIN TOTALon 09-15-2022 Bilirubin [Mass/Vol] 1.1 mg/dL Critically high 0.2-1.0 [facility] Comment on above: Performed By: #### U RTPCR #### [facility] [address] [place] [address] Dr. Dwight Waters CBC AUTO DIFFon 09-15-2022 BASO # 0.1 103/ul Normal 0.0-0.1 [facility] Comment on above: Performed By: #### C BC #### [facility] [address] [place] [address] Dr. Dwight Waters Basophils/100 WBC (Bld) 0.8 % Normal 0.2-2.0 [facility] Comment on above: Performed By: #### C BC #### [facility] [address] [place] [address] Dr. Dwight Waters EO # 0.2 103/ul Normal 0.0-0.7 [facility] Comment on above: Performed By: #### C BC #### [facility] [address] [place] [address] Dr. Dwight Waters Eosinophils/100 WBC (Bld) 3.5 % Normal 0.9-7.0 [facility] Comment on above: Performed By: #### C BC #### [facility] [address] [place] [address] Dr. Dwight Waters Erythrocyte distribution width (RBC) [Ratio] 13.0 % Normal 11.0-15.0 [facility] Comment on above: Performed By: #### C BC #### [facility] [address] [place] [address] Dr. Dwight Waters Hematocrit (Bld) [Volume fraction] 50.0 % Normal 42.0-54.0 [facility] Comment on above: Performed By: #### C BC #### [facility] [address] [place] [address] Dr. Dwight Waters Hemoglobin (Bld) [Mass/Vol] 16.0 g/dL Normal 14.0-18.0 [facility] Comment on above: Performed By: #### C BC #### [facility] [address] [place] [address] Dr. Dwight Waters IG # 0.02 10e3/ul Normal 0.00-0.03 [facility] Comment on above: Performed By: #### C BC #### [facility] [address] [place] [address] Dr. Dwight Waters IG % 0.3 % Normal 0.0-0.5 [facility] Comment on above: Performed By: #### C BC #### [facility] [address] [place] [address] Dr. Dwight Waters LYMPH # 1.8 103/ul Normal 1.2-3.8 [facility] Comment on above: Performed By: #### C BC #### [facility] [address] [place] [address] Dr. Dwight Waters Lymphocytes/100 WBC (Bld) 26.5 % Normal 20.5-60.0 [facility] Comment on above: Performed By: #### C BC #### [facility] [address] [place] [address] Dr. Dwight Waters MANUAL DIFF REQ NO Normal [facility] Comment on above: Performed By: #### C BC #### [facility] [address] [place] [address] Dr. Dwight Waters MCH (RBC) [Entitic mass] 28.1 pg Normal 25.9-34.0 [facility] Comment on above: Performed By: #### C BC #### [facility] [address] [place] [address] Dr. Dwight Waters MCHC (RBC) [Mass/Vol] 32.0 g/dL Normal 29.9-35.2 [facility] Comment on above: Performed By: #### C BC #### [facility] [address] [place] [address] Dr. Dwight Waters MCV (RBC) [Entitic vol] 87.9 fL Normal 80.0-94.0 [facility] Comment on above: Performed By: #### C BC #### [facility] [address] [place] [address] Dr. Dwight Waters MONO # 0.5 103/ul Normal 0.3-0.8 [facility] Comment on above: Performed By: #### C BC #### [facility] [address] [address] [address] Dwight Waters Monocytes/100 WBC (Bld) 8.1 % Normal 1.7-12.0 [facility] Comment on above: Performed By: #### C BC #### [facility] [address] [place] [address] Dr. Dwight Waters NEUT # 4.0 103/ul Normal 1.4-6.5 [facility] Comment on above: Performed By: #### C BC #### [facility] [address] [place] [address] Dr. Dwight Waters Neutrophils/100 WBC (Bld) 60.8 % Normal 43.0-75.0 [facility] Comment on above: Performed By: #### C BC #### [facility] [address] [place] [address] Dr. Dwight Waters Platelet mean volume (Bld) [Entitic vol] 9.4 fL Critically low 9.5-13.5 [facility] Comment on above: Performed By: #### C BC #### [facility] [address] [place] [address] Dr. Dwight Waters PLT 265 103/ul Normal 150-450 [facility] Comment on above: Performed By: #### C BC #### [facility] [address] [place] [address] Dr. Dwight Waters RBC 5.69 106/ul Normal 4.70-6.10 [facility] Comment on above: Performed By: #### C BC #### [facility] [address] [place] [address] Dr. Dwight Waters WBC 6.6 103/ul Normal 4.0-11.0 [facility] Comment on above: Performed By: #### C BC #### [facility] [address] [place] [address] Dr. Dwight Waters GGTon 09-15-2022 Gamma glutamyl transferase [Catalytic activity/Vol] 23 U/L Normal 15-85 [facility] Comment on above: Performed By: #### U RTPCR #### [facility] [address] [address] [address] Dwight Waters MAGNESIUMon 09-15-2022 Magnesium [Mass/Vol] 1.8 mg/dL Normal 1.8-2.4 [facility] Comment on above: Performed By: #### U RTPCR #### [facility] [address] [place] [address] Dr. Dwight Waters RENAL FUNCTION PANELon 09-15 Albumin [Mass/Vol] 4.1 g/dL Normal 3.4-5.0 [facility] Comment on above: Performed By: #### C BC #### [facility] [address] [place] [address] Dr. Dwight Waters Calcium [Mass/Vol] 9.3 mg/dL Normal 8.5-10.1 [facility] Comment on above: Performed By: #### C BC #### [facility] [address] [place] [address] Dr. Dwight Waters Chloride [Moles/Vol] 107 mmol/L Normal 98-107 [facility] Comment on above: Performed By: #### C BC #### [facility] [address] [place] [address] Dr. Dwight Waters CO2 [Moles/Vol] 25.6 mmol/L Normal 21.0-32.0 [facility] Comment on above: Performed By: #### C BC #### [facility] [address] [place] [address] Dr. Dwight Waters Creatinine [Mass/Vol] 1.01 mg/dL Normal 0.70-1.30 [facility] Comment on above: Performed By: #### C BC #### [facility] [address] [place] [address] Dr. Dwight Waters EGFR-AF KENYAN >60 Normal >=60 [facility] Comment on above: Performed By: #### C BC #### [facility] [address] [place] [address] Dr. Dwight Waters EGFR-NON AF KENYAN >60 Normal >=60 [facility] Comment on above: Performed By: #### C BC #### [facility] [address] [address] [address] Dwight Waters Glucose [Mass/Vol] 119 mg/dL Critically high 74-106 [facility] Comment on above: Performed By: #### C BC #### [facility] [address] [address] [address] Dwight Waters Phosphate [Mass/Vol] 2.8 mg/dL Normal 2.6-4.7 [facility] Comment on above: Performed By: #### C BC #### [facility] [address] [address] [address] Dwight Waters Potassium [Moles/Vol] 4.0 mmol/L Normal 3.5-5.1 [facility] Comment on above: Performed By: #### C BC #### [facility] [address] [address] [address] Dwight Waters Sodium [Moles/Vol] 141 mmol/L Normal 136-145 [facility] Comment on above: Performed By: #### C BC #### [facility] [address] [address] [address] Dwight Waters Urea nitrogen [Mass/Vol] 15.0 mg/dL Normal 7.0-18.0 [facility] Comment on above: Performed By: #### C BC #### [facility] [address] [address] [address] Dwight Waters SGLashondan 09-15-2022 AST [Catalytic activity/Vol] 18 U/L Normal 15-37 [facility] Comment on above: Performed By: #### U RTPCR #### [facility] [address] [address] [address] Dwight OLVERAPTon 09-15-2022 ALT [Catalytic activity/Vol] 32 U/L Normal 16-63 [facility] Comment on above: Performed By: #### C BC #### [facility] [address] [address] [address] Dwight Waters URINE T PROTEIN CREAT RATIOo n 09-15-2022 Protein (U) [Mass/Vol] 14.1 mg/dL Critically high <=12.0 [facility] Comment on above: Performed By: #### U RTPCR #### [facility] [address] [address] [address] Dwight Waters UR PROT CREAT RAT 0.[address] [facility] Comment on above: Performed By: #### U RTPCR #### [facility] [id number] Dwight Waters URINE CREAT 98.89 mg/dL Normal 20.00-300.00 [facility] Comment on above: Performed By: #### U RTPCR #### [facility] [id number] Dwight Waters CAROTID ART BILon 022 [...] MÓNICA JIMENEZ Date: 2022-08-28 13:20 Normal [facility] FK506 (TACROLIMUS) WHOLE BLO ODon 08-17-2022 Tacrolimus (FK506), Blood 9.9 ng/mL Normal 2.0-20.0 [facility] Comment on above: Result Comment: Trou gh (immediately following transplant) 15.0 . Trough (steady state, 2 weeks or more after transplant): 3.0 - 8.0 . Performed by LC-MS/MS technology. Performed By: #### F [id number] #### [facility] [address] [place] [address] Dr. Dwight Waters BK VIRUS PCR QUANTon 022 BKV DNA QUANT PCR PLASMA Negative Normal Negative [facility] Comment on above: Result Comment: No B K DNA detected. . The linear range of the assay is 22 - 100,000,000 IU/mL. Performed By: #### U RTPCR #### [facility] [address] [place] [address] Dr. Dwight Waters Log10 BKV DNA Plasma Normal [facility] Comment on above: Performed By: #### U RTPCR #### [facility] [address] [place] [address] Dr. Dwight Waters ALBUMINon 08-14-2022 Albumin [Mass/Vol] 4.2 g/dL Normal 3.4-5.0 [facility] Comment on above: Performed By: #### F [id number] #### [facility] [address] [place] [address] Dr. Dwight Waters ALKALINE PHOSPHAon ALP [Catalytic activity/Vol] 92 U/L Normal 46-116 [facility] Comment on above: Performed By: #### C BC #### [facility] [address] [place] [address] Dr. Dwight Waters BILIRUBIN CONJUGATED (DIRECT )on 08-14-2022 BILI, CONJUGATED 0.3 mg/dL Critically high 0.0-0.2 [facility] Comment on above: Performed By: #### F [id number] #### [facility] [address] [place] [address] Dr. Dwight Waters BILIRUBIN TOTALon 08-14-2022 Bilirubin [Mass/Vol] 1.5 mg/dL Critically high 0.2-1.0 [facility] Comment on above: Performed By: #### F [id number] #### [facility] [address] [place] [address] Dr. Dwight Waters BUNon 08-14-2022 Urea nitrogen [Mass/Vol] 11.0 mg/dL Normal 7.0-18.0 [facility] Comment on above: Performed By: #### C BC #### [facility] [address] [place] [address] Dr. Dwight Waters CALCIUMon 08-14-2022 Calcium [Mass/Vol] 9.4 mg/dL Normal 8.5-10.1 [facility] Comment on above: Performed By: #### F [id number] #### [facility] [address] [place] [address] Dr. Dwight Waters CBC AUTO DIFFon 08-14-2022 BASO # 0.0 103/ul Normal 0.0-0.1 [facility] Comment on above: Performed By: #### C MP #### [facility] [address] [address] [address] Dwight Waters Basophils/100 WBC (Bld) 0.5 % Normal 0.2-2.0 [facility] Comment on above: Performed By: #### C MP #### [facility] [address] [place] [address] Dr. Dwight Waters EO # 0.2 103/ul Normal 0.0-0.7 [facility] Comment on above: Performed By: #### C MP #### [facility] [address] [place] [address] Dr. Dwight Waters Eosinophils/100 WBC (Bld) 2.6 % Normal 0.9-7.0 [facility] Comment on above: Performed By: #### C MP #### [facility] [address] [place] [address] Dr. Dwight Waters Erythrocyte distribution width (RBC) [Ratio] 13.1 % Normal 11.0-15.0 [facility] Comment on above: Performed By: #### C MP #### [facility] [address] [place] [address] Dr. Dwight Waters Hematocrit (Bld) [Volume fraction] 47.0 % Normal 42.0-54.0 [facility] Comment on above: Performed By: #### C MP #### [facility] [address] [place] [address] Dr. Dwight Waters Hemoglobin (Bld) [Mass/Vol] 15.3 g/dL Normal 14.0-18.0 [facility] Comment on above: Performed By: #### C MP #### [facility] [address] [place] [address] Dr. Dwight Waters IG # 0.01 10e3/ul Normal 0.00-0.03 [facility] Comment on above: Performed By: #### C MP #### [facility] [address] [place] [address] Dr. Dwight Waters IG % 0.1 % Normal 0.0-0.5 [facility] Comment on above: Performed By: #### C MP #### [facility] [address] [place] [address] Dr. Dwight Waters LYMPH # 2.3 103/ul Normal 1.2-3.8 [facility] Comment on above: Performed By: #### C MP #### [facility] [address] [place] [address] Dr. Dwight Waters Lymphocytes/100 WBC (Bld) 29.8 % Normal 20.5-60.0 [facility] Comment on above: Performed By: #### C MP #### [facility] [address] [place] [address] Dr. Dwight Waters MANUAL DIFF REQ NO Normal [facility] Comment on above: Performed By: #### C MP #### [facility] [address] [place] [address] Dr. Dwight Waters MCH (RBC) [Entitic mass] 28.2 pg Normal 25.9-34.0 [facility] Comment on above: Performed By: #### C MP #### [facility] [address] [place] [address] Dr. Dwight Waters MCHC (RBC) [Mass/Vol] 32.6 g/dL Normal 29.9-35.2 [facility] Comment on above: Performed By: #### C MP #### [facility] [address] [place] [address] Dr. Dwight Waters MCV (RBC) [Entitic vol] 86.7 fL Normal 80.0-94.0 [facility] Comment on above: Performed By: #### C MP #### [facility] [address] [place] [address] Dr. Dwight Waters MONO # 0.7 103/ul Normal 0.3-0.8 [facility] Comment on above: Performed By: #### C MP #### [facility] [address] [place] [address] Dr. Dwight Waters Monocytes/100 WBC (Bld) 8.5 % Normal 1.7-12.0 [facility] Comment on above: Performed By: #### C MP #### [facility] [address] [place] [address] Dr. Dwight Waters NEUT # 4.5 103/ul Normal 1.4-6.5 [facility] Comment on above: Performed By: #### C MP #### [facility] [address] [place] [address] Dr. Dwight Waters Neutrophils/100 WBC (Bld) 58.5 % Normal 43.0-75.0 [facility] Comment on above: Performed By: #### C MP #### [facility] [address] [place] [address] Dr. Dwight Waters Platelet mean volume (Bld) [Entitic vol] 9.7 fL Normal 9.5-13.5 [facility] Comment on above: Performed By: #### C MP #### [facility] [address] [place] [address] Dr. Dwight Waters PLT 266 103/ul Normal 150-450 [facility] Comment on above: Performed By: #### C MP #### [facility] [address] [place] [address] Dr. Dwight Waters RBC 5.42 106/ul Normal 4.70-6.10 [facility] Comment on above: Performed By: #### C MP #### [facility] [address] [place] [address] Dr. Dwight Waters WBC 7.6 103/ul Normal 4.0-11.0 [facility] Comment on above: Performed By: #### C MP #### [facility] [address] [place] [address] Dr. Dwight Waters CHLORIDEon 08-14-2022 Chloride [Moles/Vol] 104 mmol/L Normal 98-107 [facility] Comment on above: Performed By: #### C BC #### [facility] [address] [place] [address] Dr. Dwight Waters CO2on 08-14-2022 CO2 [Moles/Vol] 27.9 mmol/L Normal 21.0-32.0 [facility] Comment on above: Performed By: #### C BC #### [facility] [address] [place] [address] Dr. Dwight Waters CREATININEon 08-14-2022 Creatinine [Mass/Vol] 1.08 mg/dL Normal 0.70-1.30 [facility] Comment on above: Performed By: #### C BC #### [facility] [address] [place] [address] Dr. Dwight Waters EGFR-AF KENYAN >60 Normal >=60 [facility] Comment on above: Performed By: #### C BC #### [facility] [address] [place] [address] Dr. Dwight Waters EGFR-NON AF KENYAN >60 Normal >=60 [facility] Comment on above: Performed By: #### C BC #### [facility] [address] [place] [address] Dr. Dwight Waters GGTon 08-14-2022 Gamma glutamyl transferase [Catalytic activity/Vol] 24 U/L Normal 15-85 [facility] Comment on above: Performed By: #### F [id number] #### [facility] [address] [place] [address] Dr. Dwight Waters GLUCOSE BLOODon 08-14-2022 Glucose [Mass/Vol] 111 mg/dL Critically high 74-106 [facility] Comment on above: Performed By: #### C BC #### [facility] [address] [place] [address] Dr. Dwight Waters MAGNESIUMon 08-14-2022 Magnesium [Mass/Vol] 1.4 mg/dL Critically low 1.8-2.4 [facility] Comment on above: Performed By: #### C BC #### [facility] [address] [place] [address] Dr. Dwight Waters NAon 08-14-2022 Sodium [Moles/Vol] 140 mmol/L Normal 136-145 [facility] Comment on above: Performed By: #### F [id number] #### [facility] [address] [address] [address] Dwight Waters PHOSPHORUSon 08-14-2022 Phosphate [Mass/Vol] 3.1 mg/dL Normal 2.6-4.7 [facility] Comment on above: Performed By: #### C BC #### [facility] [address] [place] [address] Dr. Dwight Waters POTASSIUMon 08-14-2022 Potassium [Moles/Vol] 3.5 mmol/L Normal 3.5-5.1 [facility] Comment on above: Performed By: #### C BC #### [facility] [address] [place] [address] Dr. Dwight Waters SGOTon 08-14-2022 AST [Catalytic activity/Vol] 17 U/L Normal 15-37 [facility] Comment on above: Performed By: #### F [id number] #### [facility] [address] [place] [address] Dr. Dwight Waters SGPTon 08-14-2022 ALT [Catalytic activity/Vol] 22 U/L Normal 16-63 [facility] Comment on above: Performed By: #### F [id number] #### [facility] [address] [place] [address] Dr. Dwight Waters URINE T PROTEIN CREAT RATIOo n 08-14-2022 Protein (U) [Mass/Vol] 10.7 mg/dL Normal <=12.0 [facility] Comment on above: Performed By: #### F [id number] #### [facility] [address] [place] [address] Dr. Dwight Waters UR PROT CREAT RAT 0.[address] [facility] Comment on above: Performed By: #### F [id number] #### [facility] [address] [place] [address] Dr. Dwight Waters URINE CREAT 104.28 mg/dL Normal 20.00-300.00 [facility] Comment on above: Performed By: #### F [id number] #### [facility] [address] [place] [address] Dr. Dwight Waters NEPHROSTOMY TUBE REMOVALon 0 [...] Assisting physician present for entire procedure: yes [facility] Study observation (narrative) [facility] FK506 (TACROLIMUS) WHOLE BLO ODon 07-06-2022 Tacrolimus (FK506), Blood 9.5 ng/mL Normal 2.0-20.0 [facility] Comment on above: Result Comment: Trou gh (immediately following transplant) 15.0 . Trough (steady state, 2 weeks or more after transplant): 3.0 - 8.0 . Performed by LC-MS/MS technology. Performed By: #### C MP #### [facility] [address] [place] [id number] wDight Waters ALBUMINon 07-03-2022 Albumin [Mass/Vol] 3.7 g/dL Normal 3.4-5.0 [facility] Comment on above: Performed By: #### U RTPCR #### [facility] [address] [place] [address] Dr. Dwight Waters ALKALINE PHOSPHAon ALP [Catalytic activity/Vol] 76 U/L Normal 46-116 [facility] Comment on above: Performed By: #### U RTPCR #### [facility] [address] [place] [address] Dr. Dwight Waters BILIRUBIN CONJUGATED (DIRECT )on 07-03-2022 BILI, CONJUGATED 0.3 mg/dL Critically high 0.0-0.2 [facility] Comment on above: Performed By: #### C BC #### [facility] [address] [place] [address] Dr. Dwight Waters BILIRUBIN TOTALon 07-03-2022 Bilirubin [Mass/Vol] 1.4 mg/dL Critically high 0.2-1.0 [facility] Comment on above: Performed By: #### C BC #### [facility] [address] [place] [address] Dr. Dwight Waters BUNon 07-03-2022 Urea nitrogen [Mass/Vol] 15.0 mg/dL Normal 7.0-18.0 [facility] Comment on above: Performed By: #### C BC #### [facility] [address] [place] [address] Dr. Dwight Waters CALCIUMon 07-03-2022 Calcium [Mass/Vol] 9.4 mg/dL Normal 8.5-10.1 [facility] Comment on above: Performed By: #### U RTPCR #### [facility] [address] [place] [address] Dr. Dwight Waters CBC AUTO DIFFon 07-03-2022 BASO # 0.0 103/ul Normal 0.0-0.1 [facility] Comment on above: Performed By: #### U RTPCR #### [facility] [address] [place] [address] Dr. Dwight Waters Basophils/100 WBC (Bld) 0.6 % Normal 0.2-2.0 [facility] Comment on above: Performed By: #### U RTPCR #### [facility] [address] [place] [address] Dr. Dwight Waters EO # 0.2 103/ul Normal 0.0-0.7 [facility] Comment on above: Performed By: #### U RTPCR #### [facility] [address] [place] [address] Dr. Dwight Waters Eosinophils/100 WBC (Bld) 3.5 % Normal 0.9-7.0 [facility] Comment on above: Performed By: #### U RTPCR #### [facility] [address] [place] [address] Dr. Dwight Waters Erythrocyte distribution width (RBC) [Ratio] 12.9 % Normal 11.0-15.0 [facility] Comment on above: Performed By: #### U RTPCR #### [facility] [address] [place] [address] Dr. Dwight Waters Hematocrit (Bld) [Volume fraction] 44.2 % Normal 42.0-54.0 [facility] Comment on above: Performed By: #### U RTPCR #### [facility] [address] [place] [address] Dr. Dwight Waters Hemoglobin (Bld) [Mass/Vol] 14.6 g/dL Normal 14.0-18.0 [facility] Comment on above: Performed By: #### U RTPCR #### [facility] [address] [place] [address] Dr. Dwight Waters IG # 0.02 10e3/ul Normal 0.00-0.03 [facility] Comment on above: Performed By: #### U RTPCR #### [facility] [address] [place] [address] Dr. Dwight Waters IG % 0.3 % Normal 0.0-0.5 [facility] Comment on above: Performed By: #### U RTPCR #### [facility] [address] [place] [address] Dr. Dwight Waters LYMPH # 2.0 103/ul Normal 1.2-3.8 [facility] Comment on above: Performed By: #### U RTPCR #### [facility] [address] [place] [address] Dr. Dwight Waters Lymphocytes/100 WBC (Bld) 28.4 % Normal 20.5-60.0 [facility] Comment on above: Performed By: #### U RTPCR #### [facility] [address] [place] [address] Dr. Dwight Waters MANUAL DIFF REQ NO Normal [facility] Comment on above: Performed By: #### U RTPCR #### [facility] [address] [place] [address] Dr. Dwight Waters MCH (RBC) [Entitic mass] 28.6 pg Normal 25.9-34.0 [facility] Comment on above: Performed By: #### U RTPCR #### [facility] [address] [place] [address] Dr. Dwight Waters MCHC (RBC) [Mass/Vol] 33.0 g/dL Normal 29.9-35.2 [facility] Comment on above: Performed By: #### U RTPCR #### [facility] [address] [place] [address] Dr. Dwight Waters MCV (RBC) [Entitic vol] 86.7 fL Normal 80.0-94.0 [facility] Comment on above: Performed By: #### U RTPCR #### [facility] [address] [place] [address] Dr. Dwight Waters MONO # 0.6 103/ul Normal 0.3-0.8 [facility] Comment on above: Performed By: #### U RTPCR #### [facility] [address] [place] [address] Dr. Dwight Waters Monocytes/100 WBC (Bld) 9.1 % Normal 1.7-12.0 [facility] Comment on above: Performed By: #### U RTPCR #### [facility] [address] [place] [address] Dr. Dwight Waters NEUT # 4.0 103/ul Normal 1.4-6.5 [facility] Comment on above: Performed By: #### U RTPCR #### [facility] [address] [place] [address] Dr. Dwight Waters Neutrophils/100 WBC (Bld) 58.1 % Normal 43.0-75.0 [facility] Comment on above: Performed By: #### U RTPCR #### [facility] [address] [place] [address] Dr. Dwight Waters Platelet mean volume (Bld) [Entitic vol] 9.5 fL Normal 9.5-13.5 [facility] Comment on above: Performed By: #### U RTPCR #### [facility] [address] [place] [address] Dr. Dwight Waters PLT 292 103/ul Normal 150-450 [facility] Comment on above: Performed By: #### U RTPCR #### [facility] [address] [place] [address] Dr. Dwight Waters RBC 5.10 106/ul Normal 4.70-6.10 [facility] Comment on above: Performed By: #### U RTPCR #### [facility] [address] [place] [address] Dr. Dwight Waters WBC 6.9 103/ul Normal 4.0-11.0 [facility] Comment on above: Performed By: #### U RTPCR #### [facility] [address] [place] [address] Dr. Dwight Waters CHLORIDEon 07-03-2022 Chloride [Moles/Vol] 108 mmol/L Critically high 98-107 [facility] Comment on above: Performed By: #### C BC #### [facility] [address] [place] [address] Dr. Dwight Waters CO2on 07-03-2022 CO2 [Moles/Vol] 25.2 mmol/L Normal 21.0-32.0 [facility] Comment on above: Performed By: #### C BC #### [facility] [address] [place] [address] Dr. Dwight Waters CREATININEon 07-03-2022 Creatinine [Mass/Vol] 1.03 mg/dL Normal 0.70-1.30 [facility] Comment on above: Performed By: #### U RTPCR #### [facility] [address] [place] [address] Dr. Dwight Waters EGFR-AF KENYAN >60 Normal >=60 [facility] Comment on above: Performed By: #### U RTPCR #### [facility] [address] [place] [address] Dr. Dwight Waters EGFR-NON AF KENYAN >60 Normal >=60 [facility] Comment on above: Performed By: #### U RTPCR #### [facility] [address] [place] [address] Dr. Dwight Waters GGTon 07-03-2022 Gamma glutamyl transferase [Catalytic activity/Vol] 31 U/L Normal 15-85 [facility] Comment on above: Performed By: #### U RTPCR #### [facility] [address] [place] [address] Dr. Dwight Waters GLUCOSE BLOODon 07-03-2022 Glucose [Mass/Vol] 119 mg/dL Critically high 74-106 [facility] Comment on above: Performed By: #### U RTPCR #### [facility] [address] [place] [address] Dr. Dwight Waters MAGNESIUMon 07-03-2022 Magnesium [Mass/Vol] 1.4 mg/dL Critically low 1.8-2.4 [facility] Comment on above: Performed By: #### C BC #### [facility] [address] [place] [address] Dr. Dwight Waters NAon 07-03-2022 Sodium [Moles/Vol] 142 mmol/L Normal 136-145 [facility] Comment on above: Performed By: #### C MP #### [facility] [address] [place] [address] Dr. Dwight Waters PHOSPHORUSon 07-03-2022 Phosphate [Mass/Vol] 3.4 mg/dL Normal 2.6-4.7 [facility] Comment on above: Performed By: #### C BC #### [facility] [address] [place] [address] Dr. Dwight Waters POTASSIUMon 07-03-2022 Potassium [Moles/Vol] 4.1 mmol/L Normal 3.5-5.1 [facility] Comment on above: Performed By: #### C BC #### [facility] [address] [place], [place] [address] Dr. Dwight Waters SGOTon 07-03-2022 AST [Catalytic activity/Vol] 14 U/L Critically low 15-37 [facility] Comment on above: Performed By: #### C BC #### [facility] [address] [place] [id number] Dwight Waters SGPTon 07-03-2022 ALT [Catalytic activity/Vol] 25 U/L Normal 16-63 [facility] Comment on above: Performed By: #### C BC #### [facility] [id number] Dwight Waters US KIDNEYSon 07-03-2022 US [...] by: ARCELIA PIZARRO Date: 2022-07-03 17:22 Normal [facility] CT Abdomen and Pelvis WO con traston [...] 4. The bladder is decompressed, limiting evaluation. [facility] Radiology Study observation (narrative) [facility] CT Abdomen and Pelvis WO con trastOrdered By: Gera Lu on 06-27-2022 [facility] Work Phone: CBC AUTO DIFFon 06-18-2022 BASO # 0.0 103/ul Normal 0.0-0.1 [facility] Comment on above: Performed By: #### U RTPCR #### [facility] [address] [place] [address] [address] Dwight Waters Basophils/100 WBC (Bld) 0.5 % Normal 0.2-2.0 [facility] Comment on above: Performed By: #### U RTPCR #### [facility] [address] [place] [address] [address] Dwight Waters EO # 0.2 103/ul Normal 0.0-0.7 [facility] Comment on above: Performed By: #### U RTPCR #### [facility] [address] [place] [address] Dr. Dwight Waters Eosinophils/100 WBC (Bld) 2.3 % Normal 0.9-7.0 [facility] Comment on above: Performed By: #### U RTPCR #### [facility] [address] [address] [address] Dwight Waters Erythrocyte distribution width (RBC) [Ratio] 12.9 % Normal 11.0-15.0 [facility] Comment on above: Performed By: #### U RTPCR #### [facility] [address] [place] [address] Dr. Dwight Waters Hematocrit (Bld) [Volume fraction] 41.2 % Critically low 42.0-54.0 [facility] Comment on above: Performed By: #### U RTPCR #### [facility] [address] [address] [address] Dwight Waters Hemoglobin (Bld) [Mass/Vol] 13.3 g/dL Critically low 14.0-18.0 [facility] Comment on above: Performed By: #### U RTPCR #### [facility] [address] [place] [address] Dr. Dwight Waters IG # 0.04 10e3/ul Critically high 0.00-0.03 [facility] Comment on above: Performed By: #### U RTPCR #### [facility] [address] [place] [address] Dr. Dwight Waters IG % 0.5 % Normal 0.0-0.5 [facility] Comment on above: Performed By: #### U RTPCR #### [facility] [address] [place] [address] Dr. Dwight Waters LYMPH # 2.0 103/ul Normal 1.2-3.8 [facility] Comment on above: Performed By: #### U RTPCR #### [facility] [address] [place] [address] Dr. Dwight Waters Lymphocytes/100 WBC (Bld) 22.9 % Normal 20.5-60.0 [facility] Comment on above: Performed By: #### U RTPCR #### [facility] [address] [place] [address] Dr. Dwight Watesr MANUAL DIFF REQ NO Normal [facility] Comment on above: Performed By: #### U RTPCR #### [facility] [address] [place] [address] Dr. Dwight Waters MCH (RBC) [Entitic mass] 28.7 pg Normal 25.9-34.0 [facility] Comment on above: Performed By: #### U RTPCR #### [facility] [address] [place] [address] Dr. Dwight Waters MCHC (RBC) [Mass/Vol] 32.3 g/dL Normal 29.9-35.2 [facility] Comment on above: Performed By: #### U RTPCR #### [facility] [address] [place] [address] Dr. Dwight Waters MCV (RBC) [Entitic vol] 88.8 fL Normal 80.0-94.0 [facility] Comment on above: Performed By: #### U RTPCR #### [facility] [address] [place] [address] Dr. Dwight Waters MONO # 0.8 103/ul Normal 0.3-0.8 [facility] Comment on above: Performed By: #### U RTPCR #### [facility] [address] [address] [address] Dwight Waters Monocytes/100 WBC (Bld) 9.7 % Normal 1.7-12.0 [facility] Comment on above: Performed By: #### U RTPCR #### [facility] [address] [address] [address] Dwight Waters NEUT # 5.6 103/ul Normal 1.4-6.5 [facility] Comment on above: Performed By: #### U RTPCR #### [facility] [address] [place] [address] Dr. Dwight Waters Neutrophils/100 WBC (Bld) 64.1 % Normal 43.0-75.0 [facility] Comment on above: Performed By: #### U RTPCR #### [facility] [address] [place] [address] Dr. Dwight Waters Platelet mean volume (Bld) [Entitic vol] 10.0 fL Normal 9.5-13.5 [facility] Comment on above: Performed By: #### U RTPCR #### [facility] [address] [place] [address] Dr. Dwight Waters PLT 270 103/ul Normal 150-450 [facility] Comment on above: Performed By: #### U RTPCR #### [facility] [address] [place] [address] Dr. Dwight Waters RBC 4.64 106/ul Critically low 4.70-6.10 [facility] Comment on above: Performed By: #### U RTPCR #### [facility] [address] [place] [address] Dr. Dwight Waters WBC 8.7 103/ul Normal 4.0-11.0 [facility] Comment on above: Performed By: #### U RTPCR #### [facility] [address] [place] [address] Dr. Dwight Waters CULTURE URINEon 06-18-2022 CULTURE URINE Culture Observations : NO GROWTH. Normal [facility] Comment on above: Performed By: #### U RTPCR #### [facility] [address] [place] [address] Dr. Dwight Waters Covid-19 PCR (CVDTB)on 05-31 SARS-CoV-2 (COVID-19) RNA ESTELITA+probe Ql (Unsp spec) Not detected Normal NOT DETECTED [facility] Comment on above: [...] for this test is supported by the [employer]'s declaration that [...] used). Performed By: #### C BC #### [facility] [address] [place] [address] Dr. Dwight Waters ER URINE PROFILEon Bilirubin Ql (U) Negative Normal NEGATIVE [facility] Comment on above: Performed By: #### U RTPCR #### [facility] [address] [place] [address] Dr. Dwight Waters Clarity (U) CLEAR Normal CLEAR [facility] Comment on above: Performed By: #### U RTPCR #### [facility] [address] [place] [address] Dr. Dwight Waters Color (U) YELLOW Normal YELLOW [facility] Comment on above: Performed By: #### U RTPCR #### [facility] [address] [place] [address] Dr. Dwight Waters ERUAHD A micrscopic examination will be performed if indicated. Normal [facility] Comment on above: Performed By: #### U RTPCR #### [facility] [address] [place] [address] [address] Dwight Waters Glucose Ql (U) Negative Normal NEGATIVE [facility] Comment on above: Performed By: #### U RTPCR #### [facility] [address] [place] [address] Dr. Dwight Waters Hemoglobin Ql (U) LARGE Abnormal NEGATIVE [facility] Comment on above: Performed By: #### U RTPCR #### [facility] [address] [place] [address] Dr. Dwight Waters Ketones Ql (U) Negative Normal NEGATIVE [facility] Comment on above: Performed By: #### U RTPCR #### [facility] [address] [place] [address] Dr. Dwight Waters LEUKOCYTES TRACE Abnormal NEGATIVE [facility] Comment on above: Performed By: #### U RTPCR #### [facility] [address] [place] [address] Dr. Dwight Waters Nitrite Ql (U) Negative Normal NEGATIVE [facility] Comment on above: Performed By: #### U RTPCR #### [facility] [address] [place] [address] Dr. Dwight Waters pH (U) 6.0 [pH] Normal 5-9 [facility] Comment on above: Performed By: #### U RTPCR #### [facility] [address] [place] [address] Dr. Dwight Waters Protein (U) [Mass/Vol] 30 mg/dL Abnormal NEGAT MAYUR/ TRACE [facility] Comment on above: Performed By: #### U RTPCR #### [facility] [address] [place] [address] Dr. Dwight Waters SPEC GRAVITY >=1.030 Abnormal 1.005-<=1.025 [facility] Comment on above: Performed By: #### U RTPCR #### [facility] [address] [place] [address] Dr. Dwight Waters UR MICRO IND INDICATED Normal [facility] Comment on above: Performed By: #### U RTPCR #### [facility] [address] [place] [address] Dr. Dwight Waters Urobilinogen Qn (U) 0.2 {Alyssa'U}/dL Normal 0.2 - 1. 0 [facility] Comment on above: Performed By: #### U RTPCR #### [facility] [address] [place] [address] [address] Dwight Waters PROF 14(COMP METB)on 022 Albumin [Mass/Vol] 3.7 g/dL Normal 3.4-5.0 [facility] Comment on above: Performed By: #### C MP #### [facility] [address] [address] [address] Dwight Waters Albumin/Globulin [Mass ratio] 0.9 {ratio} Normal [facility] Comment on above: Performed By: #### C MP #### [facility] [address] [place] [address] Dr. Dwigth Waters ALP [Catalytic activity/Vol] 80 U/L Normal 46-116 [facility] Comment on above: Performed By: #### C MP #### [facility] [address] [place] [address] [address] Dwight Waters ALT [Catalytic activity/Vol] 24 U/L Normal 16-63 [facility] Comment on above: Performed By: #### C MP #### [facility] [address] [address] [address] Dwight Waters Anion gap [Moles/Vol] 12.9 mmol/L Normal [facility] Comment on above: Performed By: #### C MP #### [facility] [address] [address] [address] Dwight Waters AST [Catalytic activity/Vol] 17 U/L Normal 15-37 [facility] Comment on above: Performed By: #### C MP #### [facility] [address] [address] [address] Dwight Waters Bilirubin [Mass/Vol] 0.8 mg/dL Normal 0.2-1.0 [facility] Comment on above: Performed By: #### C MP #### [facility] [address] [address] [address] Dwight Waters Calcium [Mass/Vol] 9.4 mg/dL Normal 8.5-10.1 [facility] Comment on above: Performed By: #### C MP #### [facility] [address] [place] [address] Dr. Dwight Waters Chloride [Moles/Vol] 106 mmol/L Normal 98-107 [facility] Comment on above: Performed By: #### C MP #### [facility] [address] [place] [address] Dr. Dwight Waters CO2 [Moles/Vol] 25.3 mmol/L Normal 21.0-32.0 [facility] Comment on above: Performed By: #### C MP #### [facility] [address] [place] [address] Dr. Dwight Waters Creatinine [Mass/Vol] 1.29 mg/dL Normal 0.70-1.30 [facility] Comment on above: Performed By: #### C MP #### [facility] [address] [place] [address] Dr. Dwight Waters EGFR-AF KENYAN >60 Normal >=60 [facility] Comment on above: Performed By: #### C MP #### [facility] [address] [place] [address] Dr. Dwight Waters EGFR-NON AF KENYAN 59 mL/min/1.73m2 Critically low >=60 [facility] Comment on above: Performed By: #### C MP #### [facility] [address] [place] [address] Dr. Dwight Waters Globulin (S) [Mass/Vol] 4.2 g/dL Normal [facility] Comment on above: Performed By: #### C MP #### [facility] [address] [place] [address] Dr. Dwight Waters Glucose [Mass/Vol] 106 mg/dL Normal 74-106 [facility] Comment on above: Performed By: #### C MP #### [facility] [address] [place] [address] Dr. Dwight Waters Potassium [Moles/Vol] 4.2 mmol/L Normal 3.5-5.1 [facility] Comment on above: Performed By: #### C MP #### [facility] [address] [place] [address] Dr. Dwight Waters Protein [Mass/Vol] 7.9 g/dL Normal 6.4-8.2 [facility] Comment on above: Performed By: #### C MP #### [facility] [address] [place] [address] Dr. Dwight Waters Sodium [Moles/Vol] 140 mmol/L Normal 136-145 [facility] Comment on above: Performed By: #### C MP #### [facility] [address] [place] [address] Dr. Dwight Waters Urea nitrogen [Mass/Vol] 22.0 mg/dL Critically high 7.0-18.0 [facility] Comment on above: Performed By: #### C MP #### [facility] [address] [place] [address] Dr. Dwight Waters Urea nitrogen/Creatinine [Mass ratio] 17.1 mg/mg Normal [facility] Comment on above: Performed By: #### C MP #### [facility] [address] [place] [address] Dr. Dwight Waters URINE MICROSCOPIC ONLYon BACTERIA TRACE Abnormal NONE SEEN [facility] Comment on above: Performed By: #### U RTPCR #### [facility] [address] [place] [address] Dr. Dwight Waters Bacteria identified Cx Nom (U) INDICATED Normal [facility] Comment on above: Performed By: #### U RTPCR #### [facility] Laboratory [address] [place] [address] Dr. Dwight Waters CAST NONE SEEN Normal NONE SEEN [facility] Comment on above: Performed By: #### U RTPCR #### [facility] [address] [place] [address] Dr. Dwight Waters Crystals LM Nom (Urine sed) NONE SEEN Normal NONE SEEN [facility] Comment on above: Performed By: #### U RTPCR #### [facility] [address] [address] [address] Dwight Waters Epithelial cells LM Ql (Urine sed) NONE SEEN Normal NONE SEEN /RARE [facility] Comment on above: Performed By: #### U RTPCR #### [facility] [address] [place] [address] Dr. Dwight Waters MUCOUS NONE SEEN Normal NONE SEEN [facility] Comment on above: Performed By: #### U RTPCR #### [facility] [address] [place] [address] Dr. Dwight Waters RBC 5-10 Abnormal 0-2 [facility] Comment on above: Performed By: #### U RTPCR #### [facility] [address] [place] [address] Dr. Dwight Waters WBC 10-20 Abnormal NONE SEEN [facility] Comment on above: Performed By: #### U RTPCR #### [facility] [address] [place] [address] Dr. Dwight Waters ALLOSCREEN RECIPIENT (POST T X PRA)on 06-13-2022 AB SPECIFICITY CLASS COMMENT Antibody Specificity testing performed by [employer]. cPRA calculation based on identification of HLA antibody specificities at MFI >2000 and/or presence of CREG antibodies. [facility] Comment on above: Some of the reagents used for testing in the Clinical Histocompatibility Laboratory have yet to be approved by the FDA. Our certification by CLIA to perform high complexity tests allows us to use these reagents in the context of a stringent QC program, and obviates the need for FDA approval.Testing performed by the [facility] Clinical Histocompatibility Laboratory. [facility] number: [id number]. CLIA number: [id number], Director: Carlito Merchant, PhD, D([facility]). ANTIBODY SPECIFICITY INTERPRETATION Detected [facility] CLASS I SPECIFICITIES Not detected [facility] CLASS II SPECIFICITIES Not detected [facility] HLA Ab (S) 0 % 0 [place] EXTRA MICROon 06-13-2022 [facility] URINE CULTUREOrdered By: Jah Upton on 06-13-2022 Bacteria identified Cx Nom (Unsp spec) Growth [facility] Bacteria identified Cx Nom (Unsp spec) 10,000-50,000 CFU/mL Mixed skin shimon [facility] Comment on above: Multiple bacterial m orphotypes present. Suggest appropriate recollection if clinically indicated. [facility] CBC,PLATELETSon 06-12-2022 Erythrocyte distribution width (RBC) [Ratio] 13.0 % 10.9 - 14.3 % [facility] Hematocrit (Bld) [Volume fraction] 43.2 % 39.6 - 48.8 % [facility] Hemoglobin (Bld) [Mass/Vol] 13.9 g/dL 13.4 - 16.8 g/dL [facility] Interpretation and review of laboratory results Normal [facility] MCH (RBC) [Entitic mass] 28.7 pg 26.1 - 33.3 pg [facility] MCHC (RBC) [Mass/Vol] 32.2 g/dL 31.9 - 36.5 g/dL [facility] MCV (RBC) [Entitic vol] 89.1 fL 79.0 - 94.5 fL [facility] Platelet mean volume (Bld) [Entitic vol] 10.5 fL 8.7 - 12.3 fL [facility] Platelets (Bld) [#/Vol] 269 10*3/uL 146 - 337 K/uL [facility] RBC (Bld) [#/Vol] 4.85 10*6/uL [facility] WBC (Bld) [#/Vol] 7.68 10*3/uL 3.73 - 10. 10 K/uL [place] CHEM 7 (LYTES,BUN,CREA,GLUC) on 06-12-2022 Anion gap [Moles/Vol] 14 mmol/L 7 - 17 mmol/L [facility] Chloride [Moles/Vol] 106 mmol/L 98 - 10 8 mmol/L [facility] CO2 [Moles/Vol] 25 mmol/L 21 - 31 mmol/L [facility] Creatinine [Mass/Vol] 1.26 mg/dL 0.70 - 1.30 mg/dL [facility] GFR/1.73 sq M.predicted CKD-EPI (S/P/Bld) [Vol rate/Area] 69 >=60 mL/min/1.73m2 [facility] Comment on above: Reported eGFR is bas ed on the CKD-EPI 2020 equation using creatinine, age, and sex. Glucose [Mass/Vol] 83 mg/dL 70 - 99 mg/dL [facility] Osmolality Calc [Osmolality] [address] [facility] Potassium [Moles/Vol] 3.8 mmol/L 3.5 - 5.0 mmol/L [facility] Sodium [Moles/Vol] 141 mmol/L 135 - 145 mmol/L [facility] Urea nitrogen [Mass/Vol] 18 mg/dL 7 - 25 mg/dL [facility] Urea nitrogen/Creatinine [Mass ratio] 14 mg/mg [facility] GGTon 06-12-2022 Gamma glutamyl transferase [Catalytic activity/Vol] 20 U/L 8 - 64 U/L [facility] HEMOGLOBIN [id number] By: Link Roche on 06-12-2022 Average glucose Estimated from glycated hemoglobin (Bld) [Mass/Vol] 126 mg/dL [facility] HbA1c (Bld) [Mass fraction] 6.0 % High 4.7 - 5.6 % [facility] Interpretation and review of laboratory results Abnormal [place] HEPATIC FUNCTION PANELon Albumin [Mass/Vol] 4.3 g/dL 3.5 - 5.0 g/dL [facility] ALP [Catalytic activity/Vol] 78 U/L 32 - 126 U/L [facility] ALT [Catalytic activity/Vol] 12 U/L 10 - 52 U/L [facility] AST [Catalytic activity/Vol] 16 U/L 10 - 39 U/L [facility] Bilirubin [Mass/Vol] 1.0 mg/dL <1.5 [facility] Bilirubin.direct [Mass/Vol] 0.2 mg/dL <0.3 [facility] Protein [Mass/Vol] 7.5 g/dL 6.4 - 8.3 g/dL [facility] No Panel Informationon 06-12 Interpretation and review of laboratory results Normal [place] PTH INTACTOrdered By: Marli Lizarraga on 06-12-2022 Interpretation and review of laboratory results Abnormal [facility] Parathyrin.intact [Mass/Vol] 79.7 pg/mL High 14.0 - 72.0 pg/[facility]INAL[facility] REFLEX TO CULTURE PERFORMABLEon 06-12-2022 Appearance (U) Clear Clear [facility] Bacteria LM Ql (Urine sed) ABSENT ABSENT [facility] Color (U) Yellow Yellow [facility] Epithelial cells.squamous LM Ql (Urine sed) 1/hpf = 1+ 1/hpf = 1+, 2-5/hpf = 2+, 0/hpf = 0+, ABSENT [facility] Glucose Test strip (U) [Mass/Vol] Negative Negative [facility] Interpretation and review of laboratory results Abnormal [facility] Ketones (U) [Mass/Vol] Trace Abnormal Negative [facility] Leukocyte esterase Test strip Ql (U) Small Abnormal Negative [facility] Nitrite Ql (U) Negative Negative [facility] pH (U) 5.5 [pH] 5.0 - 7.0 [facility] Protein (U) [Mass/Vol] 30 mg/dL Abnormal Negative [facility] RBC (U) [#/Vol] Trace Abnormal Negative [facility] RBC LM.HPF (Urine sed) [#/Area] 0-2 0 - 2 /HPF [facility] Specific gravity (U) [Rel density] 1.026 [facility] Urobilinogen (U) [Mass/Vol] 0.2 E.U./dL 0.2 E.U/dL, 1.0 E.U/dL [facility] WBC LM.HPF (Urine sed) [#/Area] 10-20 Abnormal 0 - 5 /HPF [facility] URINE PROTEIN/CREA RATIO, RA NDOMon 06-12-2022 Creatinine (24H U) [Mass/Vol] 231.68 mg/dL [facility] Protein Unsp time (U) [Mass/Vol] 49 mg/dL [facility] Protein/Creatinine (U) [Mass ratio] 0.211 mg/g [facility] FK506 (TACROLIMUS) WHOLE BLO ODon 06-09-2022 Tacrolimus (FK506), Blood 9.8 ng/mL Normal 2.0-20.0 [facility] Comment on above: Result Comment: Trou gh (immediately following transplant) 15.0 . Trough (steady state, 2 weeks or more after transplant): 3.0 - 8.0 . Performed by LC-MS/MS technology. Performed By: #### U RTPCR #### [facility] [address] [place] [address] Dr. Dwight Waters ALBUMINon 06-06-2022 Albumin [Mass/Vol] 3.8 g/dL Normal 3.4-5.0 [facility] Comment on above: Performed By: #### C MP #### [facility] [address] [place] [address] Dr. Dwight Waters ALKALINE PHOSPHAon ALP [Catalytic activity/Vol] 82 U/L Normal 46-116 [facility] Comment on above: Performed By: #### C MP #### [facility] [address] [place] [address] Dr. Dwight Waters BILIRUBIN CONJUGATED (DIRECT )on 06-06-2022 BILI, CONJUGATED 0.2 mg/dL Normal 0.0-0.2 [facility] Comment on above: Performed By: #### C BC #### [facility] [address] [place] [address] Dr. Dwight Waters BILIRUBIN TOTALon 06-06-2022 Bilirubin [Mass/Vol] 1.0 mg/dL Normal 0.2-1.0 [facility] Comment on above: Performed By: #### C BC #### [facility] [address] [place] [address] Dr. Dwight Waters BUNon 06-06-2022 Urea nitrogen [Mass/Vol] 18.0 mg/dL Normal 7.0-18.0 [facility] Comment on above: Performed By: #### C BC #### [facility] [address] [place] [address] Dr. Dwight Waters CALCIUMon 06-06-2022 Calcium [Mass/Vol] 9.4 mg/dL Normal 8.5-10.1 [facility] Comment on above: Performed By: #### C MP #### [facility] [address] [place] [address] Dr. Dwight Waters CBC AUTO DIFFon 06-06-2022 BASO # 0.1 103/ul Normal 0.0-0.1 [facility] Comment on above: Performed By: #### U RTPCR #### [facility] [address] [place] [address] Dr. Dwight Waters Basophils/100 WBC (Bld) 0.8 % Normal 0.2-2.0 [facility] Comment on above: Performed By: #### U RTPCR #### [facility] [address] [place] [address] Dr. Dwight Waters EO # 0.3 103/ul Normal 0.0-0.7 [facility] Comment on above: Performed By: #### U RTPCR #### [facility] [address] [place] [address] Dr. Dwight Waters Eosinophils/100 WBC (Bld) 3.3 % Normal 0.9-7.0 [facility] Comment on above: Performed By: #### U RTPCR #### [facility] [address] [place] [address] Dr. Dwight Waters Erythrocyte distribution width (RBC) [Ratio] 12.4 % Normal 11.0-15.0 [facility] Comment on above: Performed By: #### U RTPCR #### [facility] [address] [place] [address] Dr. Dwight Waters Hematocrit (Bld) [Volume fraction] 45.1 % Normal 42.0-54.0 [facility] Comment on above: Performed By: #### U RTPCR #### [facility] [address] [place] [address] Dr. Dwight Waters Hemoglobin (Bld) [Mass/Vol] 14.4 g/dL Normal 14.0-18.0 [facility] Comment on above: Performed By: #### U RTPCR #### [facility] [address] [address] [address] Dwight Waters IG # 0.01 10e3/ul Normal 0.00-0.03 [facility] Comment on above: Performed By: #### U RTPCR #### [facility] [address] [place] [address] Dr. Dwight Waters IG % 0.1 % Normal 0.0-0.5 [facility] Comment on above: Performed By: #### U RTPCR #### [facility] [address] [place] [address] Dr. Dwight Waters LYMPH # 2.2 103/ul Normal 1.2-3.8 [facility] Comment on above: Performed By: #### U RTPCR #### [facility] [address] [place] [address] Dr. Dwight Waters Lymphocytes/100 WBC (Bld) 30.0 % Normal 20.5-60.0 [facility] Comment on above: Performed By: #### U RTPCR #### [facility] [address] [place] [address] Dr. Dwight Waters MANUAL DIFF REQ NO Normal [facility] Comment on above: Performed By: #### U RTPCR #### [facility] [address] [place] [address] Dr. Dwight Waters MCH (RBC) [Entitic mass] 28.2 pg Normal 25.9-34.0 [facility] Comment on above: Performed By: #### U RTPCR #### [facility] [address] [place] [address] Dr. Dwight Waters MCHC (RBC) [Mass/Vol] 31.9 g/dL Normal 29.9-35.2 [facility] Comment on above: Performed By: #### U RTPCR #### [facility] [address] [place] [address] Dr. Dwight Waters MCV (RBC) [Entitic vol] 88.3 fL Normal 80.0-94.0 [facility] Comment on above: Performed By: #### U RTPCR #### [facility] [address] [place] [address] Dr. Dwight Waters MONO # 0.6 103/ul Normal 0.3-0.8 [facility] Comment on above: Performed By: #### U RTPCR #### [facility] [address] [place] [address] Dr. Dwight Waters Monocytes/100 WBC (Bld) 8.2 % Normal 1.7-12.0 [facility] Comment on above: Performed By: #### U RTPCR #### [facility] [address] [place] [address] Dr. Dwight Waters NEUT # 4.3 103/ul Normal 1.4-6.5 [facility] Comment on above: Performed By: #### U RTPCR #### [facility] [address] [place] [address] Dr. Dwight Waters Neutrophils/100 WBC (Bld) 57.6 % Normal 43.0-75.0 [facility] Comment on above: Performed By: #### U RTPCR #### [facility] [address] [place] [address] Dr. Dwight Waters Platelet mean volume (Bld) [Entitic vol] 9.7 fL Normal 9.5-13.5 [facility] Comment on above: Performed By: #### U RTPCR #### [facility] [address] [place] [address] Dr. Dwight Waters PLT 297 103/ul Normal 150-450 [facility] Comment on above: Performed By: #### U RTPCR #### [facility] [address] [place] [address] Dr. Dwight Waters RBC 5.11 106/ul Normal 4.70-6.10 [facility] Comment on above: Performed By: #### U RTPCR #### [facility] [address] [place] [address] Dr. Dwight Waters WBC 7.5 103/ul Normal 4.0-11.0 [facility] Comment on above: Performed By: #### U RTPCR #### [facility] [address] [place] [address] Dr. Dwight Waters CHLORIDEon 06-06-2022 Chloride [Moles/Vol] 107 mmol/L Normal 98-107 [facility] Comment on above: Performed By: #### C BC #### [facility] [address] [place] [address] Dr. Dwight Waters CO2on 06-06-2022 CO2 [Moles/Vol] 27.4 mmol/L Normal 21.0-32.0 [facility] Comment on above: Performed By: #### C BC #### [facility] [address] [place] [address] Dr. Dwight Waters CREATININEon 06-06-2022 Creatinine [Mass/Vol] 1.20 mg/dL Normal 0.70-1.30 [facility] Comment on above: Performed By: #### C BC #### [facility] [address] [place] [address] Dr. Dwight Waters EGFR-AF KENYAN >60 Normal >=60 [facility] Comment on above: Performed By: #### C BC #### [facility] [address] [place] [address] Dr. Dwight Waters EGFR-NON AF KENYAN >60 Normal >=60 [facility] Comment on above: Performed By: #### C BC #### [facility] [address] [place] [address] Dr. Dwight Waters GGTon 06-06-2022 Gamma glutamyl transferase [Catalytic activity/Vol] 29 U/L Normal 15-85 [facility] Comment on above: Performed By: #### C BC #### [facility] [address] [place] [address] Dr. Dwight Waters GLUCOSE BLOODon 06-06-2022 Glucose [Mass/Vol] 112 mg/dL Critically high 74-106 [facility] Comment on above: Performed By: #### C BC #### [facility] [address] [place] [address] Dr. Dwight Waters MAGNESIUMon 06-06-2022 Magnesium [Mass/Vol] 1.3 mg/dL Critically low 1.8-2.4 [facility] Comment on above: Performed By: #### C MP #### [facility] [address] [place] [address] Dr. Dwight Waters NAon 06-06-2022 Sodium [Moles/Vol] 141 mmol/L Normal 136-145 [facility] Comment on above: Performed By: #### C MP #### [facility] [address] [place] [address] Dr. Dwight Waters PHOSPHORUSon 06-06-2022 Phosphate [Mass/Vol] 3.1 mg/dL Normal 2.6-4.7 [facility] Comment on above: Performed By: #### C MP #### [facility] [address] [place] [address] Dr. Dwight Waters POTASSIUMon 06-06-2022 Potassium [Moles/Vol] 4.3 mmol/L Normal 3.5-5.1 [facility] Comment on above: Performed By: #### C BC #### [facility] [address] [place] [address] Dr. Dwight lAbert 06-06-2022 AST [Catalytic activity/Vol] 16 U/L Normal 15-37 [facility] Comment on above: Performed By: #### C BC #### [facility] [address] [place] [address] Dr. Dwight OLVERAPTon 06-06-2022 ALT [Catalytic activity/Vol] 50 U/L Normal 16-63 [facility] Comment on above: Performed By: #### C BC #### [facility] [address] [place] [address] Dr. Dwight Waters Bacteria identified Cx Nom ( Bld)on 05-21-2022 Bacteria identified Cx Nom (Unsp spec) NO GROWTH DAY 5 OF 5 [facility] Results may be compromised due to volume of BACT\ALERT bottle exceeding 10mLs . The optimal blood volume is 8-10 mls per aerobic/anaerobic blood culture bottle. [place] CALCIUMon 05-20-2022 Calcium [Mass/Vol] 9.1 mg/dL 8.6 - 10. 5 mg/dL [facility] CBC,PLATELETSon 05-20-2022 Erythrocyte distribution width (RBC) [Ratio] 12.5 % 10.9 - 14.3 % [facility] Hematocrit (Bld) [Volume fraction] 37.1 % Low 39.6 - 48.8 % [facility] Hemoglobin (Bld) [Mass/Vol] 12.3 g/dL Low 13.4 - 16.8 g/dL [facility] Interpretation and review of laboratory results Abnormal [facility] MCH (RBC) [Entitic mass] 28.9 pg 26.1 - 33.3 pg [facility] MCHC (RBC) [Mass/Vol] 33.2 g/dL 31.9 - 36.5 g/dL [facility] MCV (RBC) [Entitic vol] 87.3 fL 79.0 - 94.5 fL [facility] Platelet mean volume (Bld) [Entitic vol] 9.9 fL 8.7 - 12.3 fL [facility] Platelets (Bld) [#/Vol] 234 10*3/uL 146 - 337 K/uL [facility] RBC (Bld) [#/Vol] 4.25 10*6/uL Low [facility] WBC (Bld) [#/Vol] 6.31 10*3/uL 3.73 - 10. 10 K/uL [place] CHEM 7 (LYTES,BUN,CREA,GLUC) on 05-20-2022 Anion gap [Moles/Vol] 15 mmol/L 7 - 17 mmol/L [facility] Chloride [Moles/Vol] 111 mmol/L High 98 - 10 8 mmol/L [facility] CO2 [Moles/Vol] 22 mmol/L 21 - 31 mmol/L [facility] Creatinine [Mass/Vol] 1.10 mg/dL 0.70 - 1.30 mg/dL [facility] GFR/1.73 sq M.predicted CKD-EPI (S/P/Bld) [Vol rate/Area] 81 >=60 mL/min/1.73m2 [facility] Comment on above: Reported eGFR is bas ed on the CKD-EPI 2020 equation using creatinine, age, and sex. Glucose [Mass/Vol] 92 mg/dL 70 - 99 mg/dL [facility] Interpretation and review of laboratory results Abnormal [facility] Osmolality Calc [Osmolality] 302 [facility] Potassium [Moles/Vol] 4.4 mmol/L 3.5 - 5.0 mmol/L [facility] Sodium [Moles/Vol] 144 mmol/L 135 - 145 mmol/L [facility] Urea nitrogen [Mass/Vol] 18 mg/dL 7 - 25 mg/dL [facility] Urea nitrogen/Creatinine [Mass ratio] 16 mg/mg [place] MAGNESIUMon 05-20-2022 Interpretation and review of laboratory results Abnormal [facility] Magnesium [Mass/Vol] 1.5 mg/dL Low 1.6 - 2 .6 mg/dL [facility] No Panel Informationon 05-20 Interpretation and review of laboratory results Normal [place] PHOSPHATE, INORGANICon 05-20 Phosphate [Mass/Vol] 3.3 mg/dL 2.2 - 4 .6 mg/dL [facility] RF Unspecified body region V [...] projections of kidneys, ureters, and bladder. FINDINGS: Data Warehouse Specialist images: Data Warehouse Specialist radiographs of the abdomen reveal a [...] projections of kidneys, ureters, and bladder. FINDINGS: Data Warehouse Specialist images: Data Warehouse Specialist radiographs of the abdomen reveal a [...] I have reviewed and approved this report. [facility] Radiology Study observation (narrative) [facility] RF Unspecified body region V iews during surgeryOrdered By: Lizz Campos on 05-20-2022 [facility] Work Phone: CALCIUMon 05-19-2022 Calcium [Mass/Vol] 9.2 mg/dL 8.6 - 10. 5 mg/dL [facility] Calcium [Mass/Vol] 8.6 mg/dL 8.6 - 10. 5 mg/dL [facility] CBC,PLATELETSon 05-19-2022 Erythrocyte distribution width (RBC) [Ratio] 12.4 % 10.9 - 14.3 % [facility] Hematocrit (Bld) [Volume fraction] 38.0 % Low 39.6 - 48.8 % [facility] Hemoglobin (Bld) [Mass/Vol] 12.0 g/dL Low 13.4 - 16.8 g/dL [facility] Interpretation and review of laboratory results Abnormal [facility] MCH (RBC) [Entitic mass] 28.6 pg 26.1 - 33.3 pg [facility] MCHC (RBC) [Mass/Vol] 31.6 g/dL Low 31.9 - 36.5 g/dL [facility] MCV (RBC) [Entitic vol] 90.5 fL 79.0 - 94.5 fL [facility] Platelet mean volume (Bld) [Entitic vol] 9.7 fL 8.7 - 12.3 fL [facility] Platelets (Bld) [#/Vol] 199 10*3/uL 146 - 337 K/uL [facility] RBC (Bld) [#/Vol] 4.20 10*6/uL Low [facility] WBC (Bld) [#/Vol] 6.81 10*3/uL 3.73 - 10. 10 K/uL [place] CHEM 7 (LYTES,BUN,CREA,GLUC) on 05-19-2022 Anion gap [Moles/Vol] 13 mmol/L 7 - 17 mmol/L [facility] Chloride [Moles/Vol] 105 mmol/L 98 - 10 8 mmol/L [facility] CO2 [Moles/Vol] 30 mmol/L 21 - 31 mmol/L [facility] Creatinine [Mass/Vol] 1.39 mg/dL High 0.70 - 1.30 mg/dL [facility] GFR/1.73 sq M.predicted CKD-EPI (S/P/Bld) [Vol rate/Area] 61 >=60 mL/min/1.73m2 [facility] Comment on above: Reported eGFR is bas ed on the CKD-EPI 2020 equation using creatinine, age, and sex. Glucose [Mass/Vol] 121 mg/dL High 70 - 99 mg/dL [facility] Interpretation and review of laboratory results Abnormal [facility] Osmolality Calc [Osmolality] 303 [facility] Potassium [Moles/Vol] 3.8 mmol/L 3.5 - 5.0 mmol/L [facility] Sodium [Moles/Vol] 144 mmol/L 135 - 145 mmol/L [facility] Urea nitrogen [Mass/Vol] 18 mg/dL 7 - 25 mg/dL [facility] Urea nitrogen/Creatinine [Mass ratio] 13 mg/mg [facility] Anion gap [Moles/Vol] 15 mmol/L 7 - 17 mmol/L [facility] Chloride [Moles/Vol] 106 mmol/L 98 - 10 8 mmol/L [facility] CO2 [Moles/Vol] 24 mmol/L 21 - 31 mmol/L [facility] Creatinine [Mass/Vol] 1.46 mg/dL High 0.70 - 1.30 mg/dL [facility] GFR/1.73 sq M.predicted CKD-EPI (S/P/Bld) [Vol rate/Area] 58 Low >=60 mL/min/1.73m2 [facility] Comment on above: Reported eGFR is bas ed on the CKD-EPI 2020 equation using creatinine, age, and sex. Glucose [Mass/Vol] 103 mg/dL High 70 - 99 mg/dL [facility] Interpretation and review of laboratory results Abnormal [facility] Osmolality Calc [Osmolality] 298 [facility] Potassium [Moles/Vol] 3.9 mmol/L 3.5 - 5.0 mmol/L [facility] Sodium [Moles/Vol] 141 mmol/L 135 - 145 mmol/L [facility] Urea nitrogen [Mass/Vol] 21 mg/dL 7 - 25 mg/dL [facility] Urea nitrogen/Creatinine [Mass ratio] 14 mg/mg [facility] MAGNESIUMon 05-19-2022 Magnesium [Mass/Vol] 2.0 mg/dL 1.6 - 2 .6 mg/dL [facility] Magnesium [Mass/Vol] 1.7 mg/dL 1.6 - 2 .6 mg/dL [facility] No Panel Informationon 05-19 Interpretation and review of laboratory results Normal [place] Interpretation and review of laboratory results Normal [place] PHOSPHATE, INORGANICon 05-19 Phosphate [Mass/Vol] 3.0 mg/dL 2.2 - 4 .6 mg/dL [facility] Phosphate [Mass/Vol] 2.7 mg/dL 2.2 - 4 .6 mg/dL [facility] CALCIUMon 05-18-2022 Calcium [Mass/Vol] 9.1 mg/dL 8.6 - 10. 5 mg/dL [facility] CBC,PLATELETSon 05-18-2022 Erythrocyte distribution width (RBC) [Ratio] 12.5 % 10.9 - 14.3 % [facility] Hematocrit (Bld) [Volume fraction] 37.3 % Low 39.6 - 48.8 % [facility] Hemoglobin (Bld) [Mass/Vol] 11.9 g/dL Low 13.4 - 16.8 g/dL [facility] Interpretation and review of laboratory results Abnormal [facility] MCH (RBC) [Entitic mass] 28.9 pg 26.1 - 33.3 pg [facility] MCHC (RBC) [Mass/Vol] 31.9 g/dL 31.9 - 36.5 g/dL [facility] MCV (RBC) [Entitic vol] 90.5 fL 79.0 - 94.5 fL [facility] Platelet mean volume (Bld) [Entitic vol] 10.1 fL 8.7 - 12.3 fL [facility] Platelets (Bld) [#/Vol] 189 10*3/uL 146 - 337 K/uL [facility] RBC (Bld) [#/Vol] 4.12 10*6/uL Low [facility] WBC (Bld) [#/Vol] 10.19 10*3/uL High 3.73 - 10 .10 K/uL [place] CHEM 7 (LYTES,BUN,CREA,GLUC) on 05-18-2022 Anion gap [Moles/Vol] 13 mmol/L 7 - 17 mmol/L [facility] Chloride [Moles/Vol] 102 mmol/L 98 - 10 8 mmol/L [facility] CO2 [Moles/Vol] 26 mmol/L 21 - 31 mmol[facility] Creatinine [Mass/Vol] 1.91 mg/dL High 0.70 - 1.30 mg/dL [facility] GFR/1.73 sq M.predicted CKD-EPI (S/P/Bld) [Vol rate/Area] 42 Low >=60 mL/min/1.73m2 [facility] Comment on above: Reported eGFR is bas ed on the CKD-EPI 2020 equation using creatinine, age, and sex. Glucose [Mass/Vol] 158 mg/dL High 70 - 99 mg/dL [facility] Osmolality Calc [Osmolality] [address] [facility] Potassium [Moles/Vol] 4.0 mmol/L 3.5 - 5.0 mmol/L [facility] Sodium [Moles/Vol] 137 mmol/L 135 - 145 mmol/L [facility] Urea nitrogen [Mass/Vol] 30 mg/dL High 7 - 25 mg/dL [facility] Urea nitrogen/Creatinine [Mass ratio] 16 mg/mg [facility] CHEM 7 (LYTES,BUN,CREA,GLUC) Ordered By: Tamiko Thapa on 05-18-2022 Anion gap [Moles/Vol] 13 mmol/L 7 - 17 mmol/L [facility] Chloride [Moles/Vol] 104 mmol/L 98 - 10 8 mmol/L [facility] CO2 [Moles/Vol] 26 mmol/L 21 - 31 mmol/L [facility] Creatinine [Mass/Vol] 2.96 mg/dL High 0.70 - 1.30 mg/dL [facility] GFR/1.73 sq M.predicted CKD-EPI (S/P/Bld) [Vol rate/Area] 25 Low >=60 mL/min/1.73m2 [facility] Comment on above: Reported eGFR is bas ed on the CKD-EPI 2020 equation using creatinine, age, and sex. Glucose [Mass/Vol] 136 mg/dL High 70 - 99 mg/dL [facility] Interpretation and review of laboratory results Abnormal [facility] Osmolality Calc [Osmolality] 304 [facility] Potassium [Moles/Vol] 4.2 mmol/L 3.5 - 5.0 mmol/L [facility] Sodium [Moles/Vol] 139 mmol/L 135 - 145 mmol/L [facility] Urea nitrogen [Mass/Vol] 41 mg/dL High 7 - 25 mg/dL [facility] Urea nitrogen/Creatinine [Mass ratio] 14 mg/mg [facility] MAGNESIUMon 05-18-2022 Magnesium [Mass/Vol] 2.2 mg/dL 1.6 - 2 .6 mg/dL [facility] Interpretation and review of laboratory results Normal [facility] Magnesium [Mass/Vol] 1.7 mg/dL 1.6 - 2 .6 mg/dL [place] No Panel Informationon 05-18 Interpretation and review of laboratory results Abnormal [facility] Interpretation and review of laboratory results Normal [facility] PHOSPHATE, INORGANICon 05-18 Phosphate [Mass/Vol] 2.0 mg/dL Low 2.2 - 4 .6 mg/dL [facility] Interpretation and review of laboratory results Normal [facility] Phosphate [Mass/Vol] 2.8 mg/dL 2.2 - 4 .6 mg/dL [facility] PT,INR,PTTon 05-18-2022 aPTT Coag (PPP) [Time] 31.[address] [facility] INR Coag (Bld) [Relative time] 1.1 {INR} [facility] Interpretation and review of laboratory results Abnormal [facility] PT Coag (PPP) [Time] 14.4 s High [place] URINE CULTUREOrdered By: Sylvia Campos on 05-18-2022 Bacteria identified Cx Nom (Unsp spec) No Growth [place] CBC,PLATELETSon 05-17-2022 Erythrocyte distribution width (RBC) [Ratio] 12.8 % 10.9 - 14.3 % [facility] Hematocrit (Bld) [Volume fraction] 42.8 % 39.6 - 48.8 % [facility] Hemoglobin (Bld) [Mass/Vol] 13.3 g/dL Low 13.4 - 16.8 g/dL [facility] Interpretation and review of laboratory results Abnormal [facility] MCH (RBC) [Entitic mass] 28.9 pg 26.1 - 33.3 pg [facility] MCHC (RBC) [Mass/Vol] 31.1 g/dL Low 31.9 - 36.5 g/dL [facility] MCV (RBC) [Entitic vol] 92.8 fL 79.0 - 94.5 fL [facility] Platelet mean volume (Bld) [Entitic vol] 10.3 fL 8.7 - 12.3 fL [facility] Platelets (Bld) [#/Vol] 188 10*3/uL 146 - 337 K/uL [facility] RBC (Bld) [#/Vol] 4.61 10*6/uL [facility] WBC (Bld) [#/Vol] 16.61 10*3/uL High 3.73 - 10 .10 K/uL [place] CHEM 7 (LYTES,BUN,CREA,GLUC) Ordered By: Kaylah Mc on 05-17-2022 Anion gap [Moles/Vol] 15 mmol/L 7 - 17 mmol/L [facility] Chloride [Moles/Vol] 103 mmol/L 98 - 10 8 mmol/L [facility] CO2 [Moles/Vol] 23 mmol/L 21 - 31 mmol/L [facility] Creatinine [Mass/Vol] 5.95 mg/dL High 0.70 - 1.30 mg/dL [facility] GFR/1.73 sq M.predicted CKD-EPI (S/P/Bld) [Vol rate/Area] 11 Low >=60 mL/min/1.73m2 [facility] Comment on above: Reported eGFR is bas ed on the CKD-EPI 2020 equation using creatinine, age, and sex. Glucose [Mass/Vol] 165 mg/dL High 70 - 99 mg/dL [facility] Interpretation and review of laboratory results Abnormal [facility] Osmolality Calc [Osmolality] [address] [facility] Potassium [Moles/Vol] 4.6 mmol/L 3.5 - 5.0 mmol/L [facility] Sodium [Moles/Vol] 136 mmol/L 135 - 145 mmol/L [facility] Urea nitrogen [Mass/Vol] 52 mg/dL High 7 - 25 mg/dL [facility] Urea nitrogen/Creatinine [Mass ratio] 9 mg[facility] CHEM 7 (LYTES,BUN,CREA,GLUC) Ordered By: Kehinde Gutierrez on 05-17-2022 Anion gap [Moles/Vol] 24 mmol/L High 7 - 17 mmol/L [facility] Chloride [Moles/Vol] 100 mmol/L 98 - 10 8 mmol/L [facility] CO2 [Moles/Vol] 16 mmol/L Low 21 - 31 mmol/L [facility] Creatinine [Mass/Vol] 8.08 mg/dL High 0.70 - 1.30 mg/dL [facility] GFR/1.73 sq M.predicted CKD-EPI (S/P/Bld) [Vol rate/Area] 7 Low >=60 mL/min/1.73m2 [facility] Comment on above: Reported eGFR is bas ed on the CKD-EPI 2020 equation using creatinine, age, and sex. Glucose [Mass/Vol] 164 mg/dL High 70 - 99 mg/[facility] Interpretation and review of laboratory results Abnormal [facility] Osmolality Calc [Osmolality] [address] [facility] Potassium [Moles/Vol] 5.0 mmol/L 3.5 - 5.0 mmol/L [facility] Sodium [Moles/Vol] 135 mmol/L 135 - 145 mmol/L [facility] Urea nitrogen [Mass/Vol] 56 mg/dL High 7 - 25 mg/[facility] Urea nitrogen/Creatinine [Mass ratio] 7 mg/mg [facility] LAVENDER TOP TUBEon 05-17-20 [facility] MAGNESIUMon 05-17-2022 Interpretation and review of laboratory results Normal [facility] Magnesium [Mass/Vol] 1.8 mg/dL 1.6 - 2 .6 mg/dL [place] Interpretation and review of laboratory results Normal [facility] Magnesium [Mass/Vol] 1.6 mg/dL 1.6 - 2 .6 mg/dL [facility] No Panel Informationon 05-17 [facility] PHOSPHATE, INORGANICon 05-17 Interpretation and review of laboratory results Abnormal [facility] Phosphate [Mass/Vol] 4.9 mg/dL High 2.2 - 4 .6 mg/dL [facility] PT,INR,PTTon 05-17-2022 aPTT Coag (PPP) [Time] 33.[address] [facility] INR Coag (Bld) [Relative time] 1.3 {INR} High [facility] Interpretation and review of laboratory results Abnormal [facility] PT Coag (PPP) [Time] 15.7 s High [place] Portable XR Chest Viewson IMPRESSION: No acute [...] Stable cardiomegaly. IMPRESSION IMPRESSION: No acute findings. [facility] Radiology Study observation (narrative) [facility] Portable XR Chest ViewsOrder ed By: David Sanz on 05-17-2022 [facility] Work Phone: URINALYSISOrdered By: Michael patel Ma on 05-17-2022 Appearance (U) Cloudy Abnormal Clear [facility] Comment on above: Results may be inacc urate due to color interference. Clinical correlation recommended. Bacteria LM Ql (Urine sed) ABSENT ABSENT [facility] Color (U) Red Abnormal Yellow [facility] Comment on above: Results may be inacc urate due to color interference. Clinical correlation recommended. Epithelial cells.squamous LM Ql (Urine sed) ABSENT 1/hpf = 1+, 2-5/hpf = 2+, 0/hpf = 0+, ABSENT [facility] Glucose Test strip (U) [Mass/Vol] Negative Negative [facility] Comment on above: Results may be inacc urate due to color interference. Clinical correlation recommended. Interpretation and review of laboratory results Abnormal [facility] Ketones (U) [Mass/Vol] Trace Abnormal Negative [facility] Comment on above: Results may be inacc urate due to color interference. Clinical correlation recommended. Leukocyte esterase Test strip Ql (U) Large Abnormal Negative [facility] Comment on above: Results may be inacc urate due to color interference. Clinical correlation recommended. Nitrite Ql (U) Negative Negative [facility] Comment on above: Results may be inacc urate due to color interference. Clinical correlation recommended. pH (U) 5.0 [pH] 5.0 - 7.0 [facility] Comment on above: Results may be inacc urate due to color interference. Clinical correlation recommended. Protein (U) [Mass/Vol] mg/dL Abnormal Negative [facility] Comment on above: Results may be inacc urate due to color interference. Clinical correlation recommended. RBC (U) [#/Vol] Large Abnormal Negative [facility] Comment on above: Results may be inacc urate due to color interference. Clinical correlation recommended. RBC LM.HPF (Urine sed) [#/Area] /[HPF] Abnormal 0 - 2 /HPF [facility] Specific gravity (U) [Rel density] 1.016 [facility] Comment on above: Results may be inacc urate due to color interference. Clinical correlation recommended. Urobilinogen (U) [Mass/Vol] 0.2 E.U./dL 0.2 E.U/dL, 1.0 E.U/dL [facility] Comment on above: Results may be inacc urate due to color interference. Clinical correlation recommended. WBC LM.HPF (Urine sed) [#/Area] /[HPF] Abnormal 0 - 5 /HPF [facility] URINE CULTUREOrdered By: Tyler Tiwari on 05-17-2022 Bacteria identified Cx Nom (Unsp spec) No Growth [place] CBC,PLATELETSon 05-16-2022 Erythrocyte distribution width (RBC) [Ratio] 12.9 % 10.9 - 14.3 % [facility] Hematocrit (Bld) [Volume fraction] 46.5 % 39.6 - 48.8 % [facility] Hemoglobin (Bld) [Mass/Vol] 14.7 g/dL 13.4 - 16.8 g/dL [facility] Interpretation and review of laboratory results Abnormal [facility] MCH (RBC) [Entitic mass] 28.3 pg 26.1 - 33.3 pg [facility] MCHC (RBC) [Mass/Vol] 31.6 g/dL Low 31.9 - 36.5 g/dL [facility] MCV (RBC) [Entitic vol] 89.6 fL 79.0 - 94.5 fL [facility] Platelet mean volume (Bld) [Entitic vol] 10.3 fL 8.7 - 12.3 fL [facility] Platelets (Bld) [#/Vol] 188 10*3/uL 146 - 337 K/uL [facility] RBC (Bld) [#/Vol] 5.19 10*6/uL [facility] WBC (Bld) [#/Vol] 12.55 10*3/uL High 3.73 - 10 .10 K/uL [place] CHEM 7 (LYTES,BUN,CREA,GLUC) Ordered By: Alma Pena on 05-16-2022 Anion gap [Moles/Vol] 14 mmol/L 7 - 17 mmol/L [facility] Chloride [Moles/Vol] 103 mmol/L 98 - 10 8 mmol/L [facility] CO2 [Moles/Vol] 22 mmol/L 21 - 31 mmol/L [facility] Creatinine [Mass/Vol] 6.09 mg/dL High 0.70 - 1.30 mg/dL [facility] GFR/1.73 sq M.predicted CKD-EPI (S/P/Bld) [Vol rate/Area] 10 Low >=60 mL/min/1.73m2 [facility] Comment on above: Reported eGFR is bas ed on the CKD-EPI 2020 equation using creatinine, age, and sex. Glucose [Mass/Vol] 134 mg/dL High 70 - 99 mg/dL [facility] Interpretation and review of laboratory results Abnormal [facility] Osmolality Calc [Osmolality] 298 [facility] Potassium [Moles/Vol] 4.9 mmol/L 3.5 - 5.0 mmol/L [facility] Sodium [Moles/Vol] 134 mmol/L Low 135 - 145 mmol/L [facility] Comment on above: Results inconsistent with previous results Urea nitrogen [Mass/Vol] 49 mg/dL High 7 - 25 mg/dL [facility] Urea nitrogen/Creatinine [Mass ratio] 8 mg/mg [place] CHEM 7 (LYTES,BUN,CREA,GLUC) on 05-16-2022 Anion gap [Moles/Vol] 17 mmol/L 7 - 17 mmol/L [facility] Chloride [Moles/Vol] 106 mmol/L 98 - 10 8 mmol/L [facility] CO2 [Moles/Vol] 22 mmol/L 21 - 31 mmol/L [facility] Creatinine [Mass/Vol] 5.23 mg/dL High 0.70 - 1.30 mg/dL [facility] GFR/1.73 sq M.predicted CKD-EPI (S/P/Bld) [Vol rate/Area] 13 Low >=60 mL/min/1.73m2 [facility] Comment on above: Reported eGFR is bas ed on the CKD-EPI 2020 equation using creatinine, age, and sex. Glucose [Mass/Vol] 116 mg/dL High 70 - 99 mg/dL [facility] Interpretation and review of laboratory results Abnormal [facility] Osmolality Calc [Osmolality] 305 [facility] Potassium [Moles/Vol] 4.6 mmol/L 3.5 - 5.0 mmol/L [facility] Sodium [Moles/Vol] 140 mmol/L 135 - 145 mmol/L [facility] Urea nitrogen [Mass/Vol] 42 mg/dL High 7 - 25 mg/dL [facility] Urea nitrogen/Creatinine [Mass ratio] 8 mg/mg [facility] EXTRA MICROon 05-16-2022 [facility] LT BLUE TOP TUBEon 2 [facility] LYTES (NA, K, CL) - URINE - RANDOMon 05-16-2022 Chloride (24H U) [Moles/Vol] 68 mmol/L [facility] Potassium (24H U) [Moles/Vol] 36.7 mmol/L [facility] Sodium (24H U) [Moles/Vol] 55 mmol/L [facility] The reference range has not been established for random urine specimens. The test result should be integrated into the clinical context for interpretation. [facility] MAGNESIUMon 05-16-2022 Interpretation and review of laboratory results Normal [facility] Magnesium [Mass/Vol] 1.7 mg/dL 1.6 - 2 .6 mg/dL [facility] NOVEL CORONAVIRUS PCROrdered By: Edson Candelario on 05-16-2022 SARS-CoV-2 (COVID-19) RNA ESTELITA+probe Ql (Unsp spec) Not detected NOT DETECTED [facility] Comment on above: [facility] Negative results do [...] use authorization for use by authorized laboratories. [facility] No Panel Informationon 05-16 [place] OSMOLALITY, URINEon 05-16-20 Interpretation and review of laboratory results Normal [facility] Osmolality (U) [Osmolality] 320 mosm/kg [facility] The reference range has not been established for random urine specimens. The test result should be integrated into the clinical context for interpretation. [place] PROCALCITONINon 05-16-2022 Interpretation and review of laboratory results Normal [facility] Procalcitonin [Mass/Vol] 0.18 ng/mL <0.50 [facility] Comment on above: Procalcitonin is [...] and trend procalcitonin in various clinical settings. [email or web address] Two common cutoffs associated with bacterial infections are as follows. Respiratory tract infections: >0.25 ng/mL Sepsis/septic shock: >0.5 ng/mL Procalcitonin should not be used alone as a diagnostic tool, however. All procalcitonin results should be interpreted in association with the patients clinical condition and all laboratory findings. [facility] PT,INR,PTTon 05-16-2022 aPTT Coag (PPP) [Time] 30.[address] [facility] INR Coag (Bld) [Relative time] 1.1 {INR} [facility] Interpretation and review of laboratory results Normal [facility] PT Coag (PPP) [Time] 14.1 s [place] SARS-CoV-2 (COVID-19) RNA NA A+probe Ql (Unsp spec)Ordered By: Edson Candelario on 05-16-2022 Interpretation and review of laboratory results Normal [place] TACROLIMUS LEVEL, TROUGH (DE E DRUG LEVEL)Ordered By: Mariama Nick on 05-16-2022 Interpretation and review of laboratory results Normal [facility] Tacrolimus (Bld) [Mass/Vol] 4.1 ng/mL Bone Marrow Transplant: 4.0-12.0, Therapeutic: 5.0-15.0 [facility] Method performed is a chemiluminescent microparticle immunoasssay on the [employer] i2000. The range is based on experience at [facility] and users should be aware that target concentrations vary widely depending on concomitant therapy, time post-transplant, and desired degree of immunosuppression. [place] URINE PROTEIN/CREA RATIO, RA Smiley 05-16-2022 Creatinine (24H U) [Mass/Vol] 59.82 mg/dL [facility] Protein Unsp time (U) [Mass/Vol] 111 mg/dL [facility] Protein/Creatinine (U) [Mass ratio] 1.856 mg/g [facility] US for transplanted kidney l imitedon 05-16-2022 [...] appearing vascular flow in the transplant kidney. [facility] Radiology Study observation (narrative) [facility] US for transplanted kidney l imitedOrdered By: Rosendo Matute on 05-16-2022 [facility] Work Phone: [facility] Basophils (Bld) [#/Vol] 10*3/uL 0.00 - 0.09 K/uL [facility] Basophils/100 WBC (Bld) 0.2 % [facility] Differential cell count method Nom (Bld) Electronic Differential [facility] Eosinophils (Bld) [#/Vol] 10*3/uL 0.00 - 0.48 K/uL [facility] Eosinophils/100 WBC (Bld) 0.0 % [facility] Erythrocyte distribution width (RBC) [Ratio] 12.8 % 10.9 - 14.3 % [facility] Hematocrit (Bld) [Volume fraction] 46.0 % 39.6 - 48.8 % [facility] Hemoglobin (Bld) [Mass/Vol] 14.6 g/dL 13.4 - 16.8 g/dL [facility] Immature granulocytes (Bld) [#/Vol] 0.07 10*3/uL <=0.08 [facility] Immature granulocytes/100 WBC (Bld) 0.4 % [facility] Interpretation and review of laboratory results Abnormal [facility] Lymphocytes (Bld) [#/Vol] 1.49 10*3/uL 0.83 - 3.57 K/uL [facility] Lymphocytes/100 WBC (Bld) 9.4 % [facility] MCH (RBC) [Entitic mass] 28.2 pg 26.1 - 33.3 pg [facility] MCHC (RBC) [Mass/Vol] 31.7 g/dL Low 31.9 - 36.5 g/dL [facility] MCV (RBC) [Entitic vol] 89.0 fL 79.0 - 94.5 fL [facility] Monocytes (Bld) [#/Vol] 1.45 10*3/uL High 0.24 - 0.93 K/uL [facility] Monocytes/100 WBC (Bld) 9.2 % [facility] Neutrophils (Bld) [#/Vol] 12.77 10*3/uL High 1.57 - 6.19 K/uL [facility] Nucleated RBC/100 WBC (Bld) [Ratio] 0.0 % <=0.2 /100 WBC [facility] Platelet mean volume (Bld) [Entitic vol] 9.9 fL 8.7 - 12.3 fL [facility] Platelets (Bld) [#/Vol] 250 10*3/uL 146 - 337 K/uL [facility] RBC (Bld) [#/Vol] 5.17 10*6/uL [facility] Segmented neutrophils/100 WBC (Bld) 80.8 % [facility] WBC (Bld) [#/Vol] 15.81 10*3/uL High 3.73 - 10 .10 K/uL [place] CBC AUTO DIFFon 05-15-2022 BASO # 0.0 103/ul Normal 0.0-0.1 [facility] Comment on above: Performed By: #### C BC #### [facility] [address] [place] [address] Dr. Dwight Waters Basophils/100 WBC (Bld) 0.3 % Normal 0.2-2.0 [facility] Comment on above: Performed By: #### C BC #### [facility] [address] [place] [address] Dr. Dwight Waters EO # 0.1 103/ul Normal 0.0-0.7 [facility] Comment on above: Performed By: #### C BC #### [facility] [address] [place] [address] Dr. Dwight Waters Eosinophils/100 WBC (Bld) 0.8 % Critically low 0.9-7.0 [facility] Comment on above: Performed By: #### C BC #### [facility] [address] [place] [address] Dr. Dwight Waters Erythrocyte distribution width (RBC) [Ratio] 12.7 % Normal 11.0-15.0 [facility] Comment on above: Performed By: #### C BC #### [facility] [address] [place] [address] Dr. Dwight Waters Hematocrit (Bld) [Volume fraction] 43.5 % Normal 42.0-54.0 [facility] Comment on above: Performed By: #### C BC #### [facility] [address] [place] [address] Dr. Dwight Waters Hemoglobin (Bld) [Mass/Vol] 14.4 g/dL Normal 14.0-18.0 [facility] Comment on above: Performed By: #### C BC #### [facility] [address] [place] [address] Dr. Dwight Waters IG # 0.02 10e3/ul Normal 0.00-0.03 [facility] Comment on above: Performed By: #### C BC #### [facility] [address] [place] [address] Dr. Dwight Waters IG % 0.2 % Normal 0.0-0.5 [facility] Comment on above: Performed By: #### C BC #### [facility] [address] [place] [address] Dr. Dwight Waters LYMPH # 1.5 103/ul Normal 1.2-3.8 [facility] Comment on above: Performed By: #### C BC #### [facility] [address] [place] [address] Dr. Diwght Waters Lymphocytes/100 WBC (Bld) 12.5 % Critically low 20.5-60.0 [facility] Comment on above: Performed By: #### C BC #### [facility] [address] [place] [address] Dr. Dwight Waters MANUAL DIFF REQ NO Normal [facility] Comment on above: Performed By: #### C BC #### [facility] [address] [place] [address] Dr. Dwight Waters MCH (RBC) [Entitic mass] 28.6 pg Normal 25.9-34.0 [facility] Comment on above: Performed By: #### C BC #### [facility] [address] [place] [address] Dr. Dwight Waters MCHC (RBC) [Mass/Vol] 33.1 g/dL Normal 29.9-35.2 [facility] Comment on above: Performed By: #### C BC #### [facility] [address] [place] [address] Dr. Dwight Waters MCV (RBC) [Entitic vol] 86.3 fL Normal 80.0-94.0 [facility] Comment on above: Performed By: #### C BC #### [facility] [address] [place] [address] Dr. Dwight Waters MONO # 1.0 103/ul Critically high 0.3-0.8 [facility] Comment on above: Performed By: #### C BC #### [facility] [address] [place] [address] Dr. Dwight Waters Monocytes/100 WBC (Bld) 8.2 % Normal 1.7-12.0 [facility] Comment on above: Performed By: #### C BC #### [facility] [address] [place] [address] Dr. Dwight Waters NEUT # 9.1 103/ul Critically high 1.4-6.5 [facility] Comment on above: Performed By: #### C BC #### [facility] [address] [place] [address] Dr. Dwight Waters Neutrophils/100 WBC (Bld) 78.0 % Critically high 43.0-75.0 [facility] Comment on above: Performed By: #### C BC #### [facility] [address] [place] [address] Dr. Dwight Waters Platelet mean volume (Bld) [Entitic vol] 9.8 fL Normal 9.5-13.5 [facility] Comment on above: Performed By: #### C BC #### [facility] [address] [place] [address] Dr. Dwight Waters PLT 251 103/ul Normal 150-450 [facility] Comment on above: Performed By: #### C BC #### [facility] [address] [place] [address] Dr. Dwight Waters RBC 5.04 106/ul Normal 4.70-6.10 [facility] Comment on above: Performed By: #### C BC #### [facility] [address] [place], [place] [address] Dr. Dwight Waters WBC 11.6 103/ul Critically high 4.0-11.0 [facility] Comment on above: Performed By: #### C BC #### [facility] [address] [place], [place] [address] Dr. Dwight Waters CHEM 6 (LYTES, BUN CREA)on 0 05-15-2022 Anion gap [Moles/Vol] 12 mmol/L 7 - 17 mmol/L [facility] Chloride [Moles/Vol] 105 mmol/L 98 - 10 8 mmol/L [facility] CO2 [Moles/Vol] 26 mmol/L 21 - 31 mmol/L [facility] Creatinine [Mass/Vol] 2.85 mg/dL High 0.70 - 1.30 mg/dL [facility] GFR/1.73 sq M.predicted CKD-EPI (S/P/Bld) [Vol rate/Area] 26 Low >=60 mL/min/1.73m2 [facility] Comment on above: Reported eGFR is bas ed on the CKD-EPI 2020 equation using creatinine, age, and sex. Potassium [Moles/Vol] 4.6 mmol/L 3.5 - 5.0 mmol/L [facility] Sodium [Moles/Vol] 138 mmol/L 135 - 145 mmol/L [facility] Urea nitrogen [Mass/Vol] 32 mg/dL High 7 - 25 mg/dL [facility] Urea nitrogen/Creatinine [Mass ratio] 11 mg/mg [facility] [...] LYNDSAY JEAN Date: 2022-05-15 05:04 Normal [facility]30 SARS-CoV-2 (COVID-19) RNA ESTELITA+probe Ql (Unsp spec) Not detected Normal NOT DETECTED [facility] Comment on above: Result Comment: [...] for this test is supported by the [place] of [employer] and Human Service's declaration that [...] used). Performed By: #### U RTPCR #### [facility] [address] [place] [address] [address] Dwight Waters GLUCOSEon 05-15-2022 Glucose [Mass/Vol] 141 mg/dL High 70 - 99 mg/dL [facility] GOLD TOP TUBEon 05-15-2022 [facility] HEPATIC FUNCTION PANELon Albumin [Mass/Vol] 4.3 g/dL 3.5 - 5.0 g/dL [facility] ALP [Catalytic activity/Vol] 85 U/L 32 - 126 U/L [facility] ALT [Catalytic activity/Vol] 13 U/L 10 - 52 U/L [facility] AST [Catalytic activity/Vol] 15 U/L 10 - 39 U/L [facility] Bilirubin [Mass/Vol] 0.8 mg/dL <1.5 [facility] Bilirubin.direct [Mass/Vol] 0.2 mg/dL <0.3 [facility] Interpretation and review of laboratory results Normal [facility] Protein [Mass/Vol] 7.3 g/dL 6.4 - 8.3 g/dL [facility] LIPASEon 05-15-2022 Lipase [Catalytic activity/Vol] 8 U/L Low 11 - 82 U/L [facility] No Panel Informationon 05-15 Interpretation and review of laboratory results Abnormal [place] PROF 14(COMP METB)on 022 Albumin [Mass/Vol] 3.8 g/dL Normal 3.4-5.0 [facility] Comment on above: Performed By: #### U RTPCR #### [facility] [address] [address] [address] Dwight Waters Albumin/Globulin [Mass ratio] 1.1 {ratio} Normal [facility] Comment on above: Performed By: #### U RTPCR #### [facility] [address] [place], [place] [address] Dr. Dwight Waters ALP [Catalytic activity/Vol] 92 U/L Normal 46-116 [facility] Comment on above: Performed By: #### U RTPCR #### [facility] [address] [place] [address] [address] Dwight Waters ALT [Catalytic activity/Vol] 25 U/L Normal 16-63 [facility] Comment on above: Performed By: #### U RTPCR #### [facility] [address] [address] [address] Dwight Waters Anion gap [Moles/Vol] 14.6 mmol/L Normal [facility] Comment on above: Performed By: #### U RTPCR #### [facility] [address] [address] [address] Dwight Waters AST [Catalytic activity/Vol] 17 U/L Normal 15-37 [facility] Comment on above: Performed By: #### U RTPCR #### [facility] [address] [place] [address] [address] Dwight Waters Bilirubin [Mass/Vol] 0.6 mg/dL Normal 0.2-1.0 [facility] Comment on above: Performed By: #### U RTPCR #### [facility] [address] [address] [address] Dwight Waters Calcium [Mass/Vol] 9.9 mg/dL Normal 8.5-10.1 [facility] Comment on above: Performed By: #### U RTPCR #### [facility] [address] [place] [address] [address] Dwight Waters Chloride [Moles/Vol] 106 mmol/L Normal 98-107 [facility] Comment on above: Performed By: #### U RTPCR #### [facility] [address] [place] [address] [address] Dwight Waters CO2 [Moles/Vol] 24.2 mmol/L Normal 21.0-32.0 [facility] Comment on above: Performed By: #### U RTPCR #### [facility] [address] [address] [address] Dwight Waters Creatinine [Mass/Vol] 1.58 mg/dL Critically high 0.70-1.30 [facility] Comment on above: Performed By: #### U RTPCR #### [facility] [address] [address] [address] Dwight Waters EGFR-AF KENYAN 56 mL/min/1.73m2 Critically low >=60 [facility] Comment on above: Performed By: #### U RTPCR #### [facility] [address] [address] [address] Dwight Waters EGFR-NON AF KENYAN 46 mL/min/1.73m2 Critically low >=60 [facility] Comment on above: Performed By: #### U RTPCR #### [facility] [address] [address] [address] Dwight Waters Globulin (S) [Mass/Vol] 3.5 g/dL Normal [facility] Comment on above: Performed By: #### U RTPCR #### [facility] [address] [address] [address] Dwight Waters Glucose [Mass/Vol] 162 mg/dL Critically high 74-106 [facility] Comment on above: Performed By: #### U RTPCR #### [facility] [address] [address] [address] Dwight Waters Potassium [Moles/Vol] 3.8 mmol/L Normal 3.5-5.1 [facility] Comment on above: Performed By: #### U RTPCR #### [facility] [address] [address] [address] Dwight Waters Protein [Mass/Vol] 7.3 g/dL Normal 6.4-8.2 [facility] Comment on above: Performed By: #### U RTPCR #### [facility] [address] [address] [address] Dwight Waters Sodium [Moles/Vol] 141 mmol/L Normal 136-145 [facility] Comment on above: Performed By: #### U RTPCR #### [facility] [address] [address] [address] Dwight Waters Urea nitrogen [Mass/Vol] 22.0 mg/dL Critically high 7.0-18.0 [facility] Comment on above: Performed By: #### U RTPCR #### [facility] [address] [place], [place] [address] Dr. Dwight Waters Urea nitrogen/Creatinine [Mass ratio] 13.9 mg/mg Normal [facility] Comment on above: Performed By: #### U RTPCR #### [facility] [address] [place], [place] [address] Dr. Dwight Waters Portable XR Chest Viewson [...] chest. IMPRESSION IMPRESSION: No acute cardiopulmonary disease [facility] Radiology Study observation (narrative) [facility] Portable XR Chest ViewsOrder ed By: Vladislav Omer on 05-15-2022 [facility] URINE DIPSTICK; REFLEX MICRO SCOPY; REFLEX CULTURE PERFORMABLEon 05-15-2022 Appearance (U) Clear [facility] Color (U) Yellow Yellow [facility] Glucose Test strip (U) [Mass/Vol] 100 mg/dL Abnormal Negative [facility] Interpretation and review of laboratory results [facility]normal [facility] Ketones (U) [Mass/Vol] Negative Negative [facility] Leukocyte esterase Test strip Ql (U) Large Abnormal Negative [facility] Nitrite Ql (U) Negative Negative [facility] pH (U) 6.0 [pH] 5.0 - 7.[address] [facility] Protein (U) [Mass/Vol] 100 mg/dL Abnormal Negative [facility] RBC (U) [#/Vol] Large Abnormal Negative U [facility] Specific gravity (U) [Rel density] 1.010 [facility] Urobilinogen (U) [Mass/Vol] 0.2 E.U./dL 0.2 E.U/dL, 1.0 E.U/dL [place] URINE MICROSCOPIC WITH REFLE X TO CULTUREOrdered By: Rey Bro on 05-15-2022 Bacteria LM Ql (Urine sed) ABSENT ABSENT [facility] Epithelial cells.squamous LM Ql (Urine sed) ABSENT 1/hpf = 1+, 2-5/hpf = 2+, 0/hpf = 0+, ABSENT [facility] Interpretation and review of laboratory results Abnormal [facility] RBC LM.HPF (Urine sed) [#/Area] /[HPF] Abnormal 0 - 2 /HPF [facility] WBC LM.HPF (Urine sed) [#/Area] 10-20 Abnormal 0 - 5 /HPF [place] CT ABD/PELVIS WO CONon 05-12 CT ABD/PELVIS [...] calculi up to 6 mm. Normal [facility] CBC AUTO DIFFon 05-11-2022 BASO # 0.1 103/ul Normal 0.0-0.1 [facility] Comment on above: Performed By: #### U RTPCR #### [facility] [address] [place] [address] [address] Dwight Waters Basophils/100 WBC (Bld) 0.8 % Normal 0.2-2.0 [facility] Comment on above: Performed By: #### U RTPCR #### [facility] [address] [place] [address] [address] Dwight Waters EO # 0.2 103/ul Normal 0.0-0.7 [facility] Comment on above: Performed By: #### U RTPCR #### [facility] [address] [place] [address] [address] Dwight Waters Eosinophils/100 WBC (Bld) 2.5 % Normal 0.9-7.0 [facility] Comment on above: Performed By: #### U RTPCR #### [facility] [address] [place] [address] [address] Dwight Waters Erythrocyte distribution width (RBC) [Ratio] 12.5 % Normal 11.0-15.0 [facility] Comment on above: Performed By: #### U RTPCR #### [facility] [address] [address] [address] Dwight Waters Hematocrit (Bld) [Volume fraction] 48.3 % Normal 42.0-54.0 [facility] Comment on above: Performed By: #### U RTPCR #### [facility] [address] [address] [address] Dwight Waters Hemoglobin (Bld) [Mass/Vol] 15.3 g/dL Normal 14.0-18.0 [facility] Comment on above: Performed By: #### U RTPCR #### [facility] [address] [place] [address] Dr. Dwight Waters IG # 0.01 10e3/ul Normal 0.00-0.03 [facility] Comment on above: Performed By: #### U RTPCR #### [facility] [address] [place] [address] Dr. Dwight Waters IG % 0.2 % Normal 0.0-0.5 [facility] Comment on above: Performed By: #### U RTPCR #### [facility] [address] [place] [address] Dr. Dwight Waters LYMPH # 1.9 103/ul Normal 1.2-3.8 [facility] Comment on above: Performed By: #### U RTPCR #### [facility] [address] [place] [address] Dr. Dwight Waters Lymphocytes/100 WBC (Bld) 29.8 % Normal 20.5-60.0 [facility] Comment on above: Performed By: #### U RTPCR #### [facility] [address] [place] [address] Dr. Dwight Waters MANUAL DIFF REQ NO Normal [facility] Comment on above: Performed By: #### U RTPCR #### [facility] [address] [place] [address] Dr. Dwight Waters MCH (RBC) [Entitic mass] 28.2 pg Normal 25.9-34.0 [facility] Comment on above: Performed By: #### U RTPCR #### [facility] [address] [place] [address] Dr. Dwight Waters MCHC (RBC) [Mass/Vol] 31.7 g/dL Normal 29.9-35.2 [facility] Comment on above: Performed By: #### U RTPCR #### [facility] [address] [place] [address] Dr. Dwight Waters MCV (RBC) [Entitic vol] 89.1 fL Normal 80.0-94.0 [facility] Comment on above: Performed By: #### U RTPCR #### [facility] [address] [address] [address] Dwight Waters MONO # 0.6 103/ul Normal 0.3-0.8 [facility] Comment on above: Performed By: #### U RTPCR #### [facility] [address] [place] [address] [address] Dwight Waters Monocytes/100 WBC (Bld) 9.0 % Normal 1.7-12.0 [facility] Comment on above: Performed By: #### U RTPCR #### [facility] [address] [address] [address] Dwight Waters NEUT # 3.6 103/ul Normal 1.4-6.5 [facility] Comment on above: Performed By: #### U RTPCR #### [facility] [address] [place] [address] Dr. Dwight Waters Neutrophils/100 WBC (Bld) 57.7 % Normal 43.0-75.0 [facility] Comment on above: Performed By: #### U RTPCR #### [facility] [address] [place] [address] Dr. Dwight Waters Platelet mean volume (Bld) [Entitic vol] 9.9 fL Normal 9.5-13.5 [facility] Comment on above: Performed By: #### U RTPCR #### [facility] [address] [place] [address] Dr. Dwight Waters PLT 249 103/ul Normal 150-450 [facility] Comment on above: Performed By: #### U RTPCR #### [facility] [address] [place] [address] Dr. Dwight Waters RBC 5.42 106/ul Normal 4.70-6.10 [facility] Comment on above: Performed By: #### U RTPCR #### [facility] [address] [place] [address] Dr. Dwight Waters WBC 6.3 103/ul Normal 4.0-11.0 [facility] Comment on above: Performed By: #### U RTPCR #### [facility] [address] [place] [address] Dr. Dwight Waters ER URINE PROFILEon 2 Bilirubin Ql (U) Unable to perform testing due to color interference. Abnormal NEGATIVE [facility] Comment on above: Performed By: #### U RTPCR #### [facility] [address] [place] [address] Dr. Dwight Waters Clarity (U) TURBID Abnormal CLEAR [facility] Comment on above: Performed By: #### U RTPCR #### [facility] [address] [place] [address] Dr. Dwight Waters Color (U) RED Abnormal YELLOW [facility] Comment on above: Performed By: #### U RTPCR #### [facility] [address] [place] [address] Dr. Dwight SHARMA A micrscopic examination will be performed if indicated. Normal [facility] Comment on above: Performed By: #### U RTPCR #### [facility] [address] [place] [address] Dr. Dwight Waters Glucose Ql (U) Unable to perform testing due to color interference. Abnormal NEGATIVE [facility] Comment on above: Performed By: #### U RTPCR #### [facility] [address] [place] [address] Dr. Dwight Waters Hemoglobin Ql (U) Unable to perform testing due to color interference. Abnormal NEGATIVE [facility] Comment on above: Performed By: #### U RTPCR #### [facility] [address] [place] [address] Dr. Dwight Waters Ketones Ql (U) Unable to perform testing due to color interference. Abnormal NEGATIVE [facility] Comment on above: Performed By: #### U RTPCR #### [facility] [address] [place] [address] Dr. Dwight Waters LEUKOCYTES Unable to perform testing due to color interference. Abnormal NEGATIVE [facility] Comment on above: Performed By: #### U RTPCR #### [facility] [address] [place] [address] Dr. Dwight Waters Nitrite Ql (U) Unable to perform testing due to color interference. Abnormal NEGATIVE [facility] Comment on above: Performed By: #### U RTPCR #### [facility] [address] [place] [address] Dr. Dwight Waters pH (U) 6.5 [pH] Normal 5-9 [facility] Comment on above: Performed By: #### U RTPCR #### [facility] [address] [place] [address] Dr. Dwight Waters SPEC GRAVITY 1.020 Normal 1.005-<=1.025 [facility] Comment on above: Performed By: #### U RTPCR #### [facility] [address] [place] [address] Dr. Dwight Waters UA PROTEIN Unable to perform testing due to color interference. Normal NEGATIVE/ TRACE [facility] Comment on above: Performed By: #### U RTPCR #### [facility] [address] [place] [address] Dr. Dwight Waters UR MICRO IND INDICATED Normal [facility] Comment on above: Performed By: #### U RTPCR #### [facility] [address] [place] [address] Dr. Dwight Waters UROBILINOGEN Unable to perform testing due to color interference. Normal 0.2 - 1.0 [facility] Comment on above: Performed By: #### U RTPCR #### [facility] [address] [place] [address] Dr. Dwight Waters PROF 14(COMP METB)on 022 Albumin [Mass/Vol] 3.8 g/dL Normal 3.4-5.0 [facility] Comment on above: Performed By: #### C MP #### [facility] [address] [place] [address] Dr. Dwight Waters Albumin/Globulin [Mass ratio] 1.1 {ratio} Normal [facility] Comment on above: Performed By: #### C MP #### [facility] [address] [place] [address] Dr. Dwight Waters ALP [Catalytic activity/Vol] 106 U/L Normal 46-116 [facility] Comment on above: Performed By: #### C MP #### [facility] [address] [address] [address] Dwight Waters ALT [Catalytic activity/Vol] 30 U/L Normal 16-63 [facility] Comment on above: Performed By: #### C MP #### [facility] [address] [address] [address] Dwight Waters Anion gap [Moles/Vol] 11.7 mmol/L Normal [facility] Comment on above: Performed By: #### C MP #### [facility] [address] [address] [address] Dwight Waters AST [Catalytic activity/Vol] 16 U/L Normal 15-37 [facility] Comment on above: Performed By: #### C MP #### [facility] [address] [place] [address] Dr. Dwight Waters Bilirubin [Mass/Vol] 0.6 mg/dL Normal 0.2-1.0 [facility] Comment on above: Performed By: #### C MP #### [facility] [address] [address] [address] Dwight Waters Calcium [Mass/Vol] 9.1 mg/dL Normal 8.5-10.1 [facility] Comment on above: Performed By: #### C MP #### [facility] [address] [address] [address] Dwight Waters CO2 [Moles/Vol] 27.4 mmol/L Normal 21.0-32.0 [facility] Comment on above: Performed By: #### C MP #### [facility] [address] [address] [address] Dwight Waters Creatinine [Mass/Vol] 1.18 mg/dL Normal 0.70-1.30 [facility] Comment on above: Performed By: #### C MP #### [facility] [address] [address] [address] Dwight Waters EGFR-AF KENYAN >60 Normal >=60 [facility] Comment on above: Performed By: #### C MP #### [facility] [address] [address] [address] Dwight Waters EGFR-NON AF KENYAN >60 Normal >=60 [facility] Comment on above: Performed By: #### C MP #### [facility] [address] [address] [address] Dwight Waters Globulin (S) [Mass/Vol] 3.6 g/dL Normal [facility] Comment on above: Performed By: #### C MP #### [facility] [address] [address] [address] Dwight Waters Glucose [Mass/Vol] 192 mg/dL Critically high 74-106 [facility] Comment on above: Performed By: #### C MP #### [facility] [address] [place] [address] Dr. Dwight Waters Potassium [Moles/Vol] 4.1 mmol/L Normal 3.5-5.1 [facility] Comment on above: Performed By: #### C MP #### [facility] [address] [place] [address] Dr. Dwight Waters Protein [Mass/Vol] 7.4 g/dL Normal 6.4-8.2 [facility] Comment on above: Performed By: #### C MP #### [facility] [address] [place] [address] Dr. Dwight Waters Sodium [Moles/Vol] 142 mmol/L Normal 136-145 [facility] Comment on above: Performed By: #### C MP #### [facility] [address] [place] [address] Dr. Dwight Waters Urea nitrogen [Mass/Vol] 17.0 mg/dL Normal 7.0-18.0 [facility] Comment on above: Performed By: #### C MP #### [facility] [address] [place] [address] Dr. Dwight Waters Urea nitrogen/Creatinine [Mass ratio] 14.4 mg/mg Normal [facility] Comment on above: Performed By: #### C MP #### [facility] [address] [place] [address] Dr. Dwight Waters URINE MICROSCOPIC ONLYon BACTERIA NONE SEEN Normal NONE SEEN [facility] Comment on above: Performed By: #### U RTPCR #### [facility] [address] [place] [address] Dr. Dwight Waters Bacteria identified Cx Nom (U) NOT INDICATED Normal [facility] Comment on above: Performed By: #### U RTPCR #### [facility] [address] [place] [address] Dr. Dwight Waters CAST NONE SEEN Normal NONE SEEN [facility] Comment on above: Performed By: #### U RTPCR #### [facility] [address] [place] [address] Dr. Dwight Waters Crystals LM Nom (Urine sed) NONE SEEN Normal NONE SEEN [facility] Comment on above: Performed By: #### U RTPCR #### [facility] [address] [place] [address] Dr. Dwight Waters Epithelial cells LM Ql (Urine sed) RARE Normal NONE SEEN /RARE [facility] Comment on above: Performed By: #### U RTPCR #### [facility] [address] [place] [address] Dr. Dwight Waters MUCOUS NONE SEEN Normal NONE SEEN [facility] [facility] Comment on above: Performed By: #### U RTPCR #### [facility] [address] [place] [address] Dr. Dwight Waters RBC (U) [#/Vol] /uL Abnormal 0-2 [facility] Comment on above: Performed By: #### U RTPCR #### [facility] [address] [place] [address] Dr. Dwight Waters WBC NONE SEEN Normal NONE SEEN [facility] Comment on above: Performed By: #### U RTPCR #### [facility] [address] [place] [address] Dr. Dwight Waters K (Potassium)on 01-06-2020 Potassium [Moles/Vol] 4.4 mmol/L Normal 3.7-5.3 [facility] Comment on above: Performed By: #### K #### [facility] [address] [place], [place] [address] [employer]: Kehinde Woodward MD Potassiumon 01-06-2020 Potassium [Moles/Vol] 4.4 mmol/L 3.7 - 5.3 mmol/L [facility] Work Phone: Hemoglobin and Hematocrit, B loodon 10-24-2019 Hematocrit (Bld) [Volume fraction] 23.6 % Low 40.7 - 50.3 % [place], [place] Hemoglobin (Bld) [Mass/Vol] 7.3 g/dL Low 13 - 17 g/dL [place] Interpretation and review of laboratory results Abnormal [place] Hgb/Hcton 10-24-2019 Hematocrit (Bld) [Volume fraction] 23.6 % Low 40.7-50.3 [facility] Comment on above: Performed By: #### H H #### [facility] [address] [place] [address] Dr. [place] [id number] [employer]: Kehinde Woodward MD Hemoglobin (Bld) [Mass/Vol] 7.3 g/dL Low 13.0-17.0 [facility] Comment on above: Performed By: #### H H #### [address] [place], [place] [id number] [employer]: Kehinde Woodward MD Hemoglobinon 08-27-2019 Hemoglobin (Bld) [Mass/Vol] 7.5 g/dL Low 13.0-17.0 [facility] Comment on above: Performed By: #### H GB #### [facility] [address] [place] [address] [place], [place] [address] [employer]: Kehinde Woodward MD Hemoglobin (Bld) [Mass/Vol] 7.5 g/dL Low 13 - 17 g/dL [place], [place] Interpretation and review of laboratory results Abnormal [place] Hemoglobinon 08-08-2019 Hemoglobin (Bld) [Mass/Vol] 8.3 g/dL Low 13.0-17.0 [facility] Comment on above: Performed By: #### H GB #### [facility] [address] [place], [place] [address] [employer]: Kehinde Woodward MD Hemoglobin (Bld) [Mass/Vol] 8.3 g/dL Low 13 - 17 g/dL [place] Interpretation and review of laboratory results Abnormal [place] Hemoglobinon 08-04-2019 Hemoglobin (Bld) [Mass/Vol] 8.0 g/dL Low 13.0-17.0 [facility] Comment on above: Performed By: #### H GB #### [facility] [address] [place], [place] [address] [employer]: Kehinde Woodward MD Hemoglobin A1Con 08-03-2019 HbA1c (Bld) [Mass fraction] % Low 4.8-5.9 [facility] Comment on above: Result Comment: The ADA and AACC recommend providing the estimated average glucose result to permit better patient understanding of their HBA1c result. Performed By: #### G LYHGB #### [facility] [address] [place], [place] [address] [employer]: Kehinde Woodward MD Glucose [Mass/Vol] mg/dL mg/dL [place], [place] Comment on above: The ADA and AACC rec ommend providing the estimated average glucose result to permit better patient understanding of their HBA1c result. HbA1c (Bld) [Mass fraction] % Low 4.8 - 5.9 % [place] Interpretation and review of laboratory results Abnormal [place] Hemoglobinon 08-01-2019 Hemoglobin (Bld) [Mass/Vol] 8.1 g/dL Low 13.0-17.0 [facility] Comment on above: Performed By: #### H GB #### [facility] [address] [place], [place] [address] [employer]: Kehinde Woodward MD Hemoglobin (Bld) [Mass/Vol] 8.1 g/dL Low 13 - 17 g/dL [place] Interpretation and review of laboratory results Abnormal [facility] [place] Hgb/Hcton 06-10-2019 Hematocrit (Bld) [Volume fraction] 24.3 % Low 40.7-50.3 [facility] Comment on above: Performed By: #### H H #### [facility] [address] [place] [id number] [employer]: Kehinde Woodward MD Hemoglobin (Bld) [Mass/Vol] 7.4 g/dL Low 13.0-17.0 [facility] Comment on above: Performed By: #### H H #### [facility] [address] [place] [address] [employer]: Kehinde Woodward MD Hemoglobinon 06-01-2019 Hemoglobin (Bld) [Mass/Vol] 7.2 g/dL Low 13.0-17.0 [facility] Comment on above: Performed By: #### H GB #### [facility] [address] [place] [id number] [employer]: Kehinde Woodward MD K (Potassium)on 01-14-2019 Potassium [Moles/Vol] 3.6 mmol/L Low 3.7-5.3 [facility] Comment on above: Performed By: #### K #### [facility] [address] [place], [place] [id number] [employer]: Kehinde Woodward MD Otheron 10-19-2018 IMPRESSION: 1. [...] No confirmatory testing will follow. Invalid Interpretation [facility] QASIM [facility] Comment on above: This Liquid Chromato graphy Mass Spectrometry (LC/MS/MS) test was developed and its performance characteristics determined by Toxicology Laboratory at [facility]. It has not been cleared [...] Amitriptyline(50), Amphetamine(250), Atenolol(500), Barbiturates(1000), Benzoylecgonine(50), Buprenorphine(50), Bupropion(25), Caffeine(21728), Chlordiazepoxide(50), Chlorpheniramine(100), Chlorpromazine(50), Citalopram(100), Clonazepam(200), Cocaine(25), Codeine(200), [...] Code MISSY, QASIM TOXICOLOGY SCREEN URINE - [facility] 10-12-2018 Drugs identified Screen Nom (U) For Medical Purposes Only, Non-forensic, screen results are presumptive. No confirmatory testing will follow. Invalid Interpretation Code LAB, [facility] Comment on above: This Liquid Chromato graphy Mass Spectrometry (LC/MS/MS) test was developed and its performance characteristics determined by Toxicology Laboratory at [facility]. It has not been cleared [...] Amitriptyline(50), Amphetamine(250), Atenolol(500), Barbiturates(200), Benzoylecgonine(50), Buprenorphine(500), Bupropion(25), Caffeine(25601), Cannabinoids(THC)(50), Chlordiazepoxide(50), Chlorpheniramine(100), Chlorpromazine(50), Citalopram(100), Clonazepam(200), Cocaine(25), [...] Pressure Location Clementina Montesinos [facility] 09-08-2024 13:40-0400 Diastolic blood pressure 90 mm[Hg] Clementina Montesinos [facility] 09-08-2024 13:40-0400 Heart rate 66 /min Clementina Montesinos [facility] 09-08-2024 13:40-0400 Systolic blood pressure 144 mm[Hg] Clementina Montesinos [facility] 06-17-2024 08:37-0400 Body mass index (BMI) [Ratio] 29.43 kg/m2 Rebeca Gutierrez DIABETOLOGIST-COMMUNITY ENGAGEMENT SPECIALIST Work Phone: [facility] 06-17-2024 08:37-0400 Body temperature 97.39 [degF] Rebeca Gutierrez DIABETOLOGIST-COMMUNITY ENGAGEMENT SPECIALIST Work Phone: [facility] 06-17-2024 08:37-0400 Body weight 85.23 kg Rebeca Gutierrez DIABETOLOGIST-COMMUNITY ENGAGEMENT SPECIALIST Work Phone: [facility] 06-17-2024 08:37-0400 Diastolic blood pressure 75 mm[Hg] Rebeca Gutierrez DIABETOLOGIST-COMMUNITY ENGAGEMENT SPECIALIST Work Phone: [facility] 06-17-2024 08:37-0400 Heart rate 53 /min Rebeca Gutierrez DIABETOLOGIST-COMMUNITY ENGAGEMENT SPECIALIST Work Phone: [facility] 06-17-2024 08:37-0400 Systolic blood pressure 143 mm[Hg] Rebeca Gutierrez DIABETOLOGIST-COMMUNITY ENGAGEMENT SPECIALIST Work Phone: [facility] 06-17-2024 08:36-0400 Body mass index (BMI) [Ratio] 29.43 kg/m2 Daisha Sobotka DO Work Phone: [facility] 06-17-2024 08:36-0400 Body temperature 97.39 [degF] Daisha Sobotka DO Work Phone: [facility] 06-17-2024 08:36-0400 Body weight 85.23 kg Daisha Sobotka DO Work Phone: [facility] 06-17-2024 08:36-0400 Diastolic blood pressure 75 mm[Hg] Daisha Sobotka DO Work Phone: [facility] 06-17-2024 08:36-0400 Heart rate 53 /min Daisha Sobotka DO Work Phone: [facility] 06-17-2024 08:36-0400 Systolic blood pressure 143 mm[Hg] Daisha Max DO Work Phone: [facility] 02-26-2024 09:07-0400 Diastolic blood pressure 56 mm[Hg] Candie Almaguer MD Work Phone: [facility] 02-26-2024 09:07-0400 Heart rate 65 /min Candie Almaguer MD Work Phone: [facility] 02-26-2024 09:07-0400 Systolic blood pressure 113 mm[Hg] Candie Almaguer MD Work Phone: [facility] 02-26-2024 09:06-0400 Body height 170.2 cm Candie Almaguer MD Work Phone: [facility] 02-26-2024 09:06-0400 Body mass index (BMI) [Ratio] 28.9 kg/m2 Candie Almaguer MD Work Phone: [facility] 02-26-2024 09:06-0400 Body weight 83.69 kg Candie Almaguer MD Work Phone: [facility] 02-26-2024 09:06-0400 Respiratory rate 20 /min Candie Almaguer MD Work Phone: [facility] 02-26-2024 09:06-0400 SaO2% (BldA) [Mass fraction] 97 % Candie Almaguer MD Work Phone: [facility] 01-23-2024 15:04-0500 Body temperature 97.9 [degF] Kevin Prince MD Work Phone: [facility] 01-23-2024 15:04-0500 Diastolic blood pressure 67 mm[Hg] Kevin Prince MD Work Phone: [facility] 01-23-2024 15:04-0500 Heart rate 51 /min Kevin Prince MD Work Phone: [facility] 01-23-2024 15:04-0500 Respiratory rate 16 /min Kevin Prince MD Work Phone: [facility] 01-23-2024 15:04-0500 SaO2% (BldA) [Mass fraction] 94 % Kevin Prince MD Work Phone: [facility] 01-23-2024 15:04-0500 Systolic blood pressure 151 mm[Hg] Kevin Prince MD Work Phone: [facility] 01-23-2024 10:46-0500 Body mass index (BMI) [Ratio] 30.94 kg/m2 Kevin Prince MD Work Phone: [facility] 01-23-2024 10:46-0500 Body weight 89.6 kg Kevin Prince MD Work Phone: [facility] 01-18-2024 11:21-0500 Body height 170.2 cm Kevin Prince MD Work Phone: [facility] 01-06-2024 09:04-0500 Body height 170.2 cm Zuly Bruno LIQUOR BRIDGE OPERATOR Work Phone: [facility] 01-06-2024 09:04-0500 Body mass index (BMI) [Ratio] 32.42 kg/m2 Zuly Bruno LIQUOR BRIDGE OPERATOR Work Phone: [facility] 01-06-2024 09:04-0500 Body temperature 97.81 [degF] Zuly Bruno LIQUOR BRIDGE OPERATOR Work Phone: [facility] 01-06-2024 09:04-0500 Body weight 93.89 kg Zuly Bruno LIQUOR BRIDGE OPERATOR Work Phone: [facility] 01-06-2024 09:04-0500 Diastolic blood pressure 70 mm[Hg] Zuly Bruno LIQUOR BRIDGE OPERATOR Work Phone: [facility] 01-06-2024 09:04-0500 Heart rate 95 /min Zuly Bruno LIQUOR BRIDGE OPERATOR Work Phone: [facility] 01-06-2024 09:04-0500 Respiratory rate 17 /min Zuly Bruno LIQUOR BRIDGE OPERATOR Work Phone: [facility] 01-06-2024 09:04-0500 SaO2% (BldA) [Mass fraction] 99 % Zuly Bruno LIQUOR BRIDGE OPERATOR Work Phone: [facility] 01-06-2024 09:04-0500 Systolic blood pressure 138 mm[Hg] Zuly Annz LIQUOR BRIDGE OPERATOR Work Phone: [facility] 09-11-2023 10:31-0400 Body temperature 97.81 [degF] Steve Tammy MBBS Work Phone: [facility] 09-11-2023 10:31-0400 Diastolic blood pressure 66 mm[Hg] Steve Tammy MBBS Work Phone: [facility] 09-11-2023 10:31-0400 Heart rate 70 /min Steve Tammy MBBS Work Phone: [facility] 09-11-2023 10:31-0400 Respiratory rate 20 /min Steve Tammy MBBS Work Phone: [facility] 09-11-2023 10:31-0400 SaO2% (BldA) [Mass fraction] 91 % Steve Tammy MBBS Work Phone: [facility] 09-11-2023 10:31-0400 Systolic blood pressure 129 mm[Hg] Steve Tammy MBBS Work Phone: [facility] 09-10-2023 15:50-0400 Body mass index (BMI) [Ratio] 31.99 kg/m2 Steve Tammy MBBS Work Phone: [facility] 09-10-2023 15:50-0400 Body weight 92.67 kg Steve Tammy MBBS Work Phone: [facility] 09-02-2023 07:32-0400 Body height 170.2 cm Steve Tammy MBBS Work Phone: [facility] 08-28-2023 13:33-0400 Body height 170.2 cm Steve Tammy MBBS Work Phone: [facility] 08-28-2023 13:33-0400 Body mass index (BMI) [Ratio] 32.12 kg/m2 Steve Tammy MBBS Work Phone: [facility] 08-28-2023 13:33-0400 Body temperature 97.3 [degF] Steve Tammy MBBS Work Phone: [facility] 08-28-2023 13:33-0400 Body weight 93.03 kg Steve Tammy MBBS Work Phone: [facility] 08-28-2023 13:33-0400 Diastolic blood pressure 41 mm[Hg] Steve Tammy MBBS Work Phone: [facility] 08-28-2023 13:33-0400 Heart rate 116 /min Steve Tammy MBBS Work Phone: [facility] 08-28-2023 13:33-0400 Systolic blood pressure 106 mm[Hg] Steve Tammy MBBS Work Phone: [facility] 06-12-2023 14:50-0400 Body mass index (BMI) [Ratio] 33.8 kg/m2 Rebeca Gutierrez APRN-ROB Work Phone: [facility] 06-12-2023 14:50-0400 Body temperature 97.3 [degF] Rebeca Gutierrez DIABETOLOGIST-COMMUNITY ENGAGEMENT SPECIALIST Work Phone: [facility] 06-12-2023 14:50-0400 Body weight 97.89 kg Rebeca Gutierrez DIABETOLOGIST-COMMUNITY ENGAGEMENT SPECIALIST Work Phone: [facility] 06-12-2023 14:50-0400 Diastolic blood pressure 77 mm[Hg] Rebeca Gutierrez DIABETOLOGIST-COMMUNITY ENGAGEMENT SPECIALIST Work Phone: [facility] 06-12-2023 14:50-0400 Heart rate 76 /min Rebeca Gutierrez DIABETOLOGIST-COMMUNITY ENGAGEMENT SPECIALIST Work Phone: [facility] 06-12-2023 14:50-0400 Systolic blood pressure 146 mm[Hg] Rebeca Gutierrez DIABETOLOGIST-COMMUNITY ENGAGEMENT SPECIALIST Work Phone: [facility] 01-16-2023 08:57-0500 Body height 170.2 cm [facility] Work Phone: [facility] 01-16-2023 08:57-0500 Body mass index (BMI) [Ratio] 33.66 kg/m2 [facility] Work Phone: [facility] 01-16-2023 08:57-0500 Body temperature 97.3 [degF] [facility] Work Phone: [facility] 01-16-2023 08:57-0500 Body weight 97.48 kg [facility] Work Phone: [facility] 01-16-2023 08:57-0500 Diastolic blood pressure 75 mm[Hg] [facility] Work Phone: [facility] 01-16-2023 08:57-0500 Heart rate 76 /min [facility] Work Phone: [facility] 01-16-2023 08:57-0500 Systolic blood pressure 142 mm[Hg] [facility] Work Phone: [facility] 09-10-2022 09:38-0400 Body height 170.2 cm Ryan Yepez MD Work Phone: [facility] 09-10-2022 09:38-0400 Body mass index (BMI) [Ratio] 33.67 kg/m2 Ryan Yepez MD Work Phone: [facility] 09-10-2022 09:38-0400 Body weight 97.52 kg Ryan Yepez MD Work Phone: [facility] 09-10-2022 09:38-0400 Diastolic blood pressure 83 mm[Hg] Ryan Yepez MD Work Phone: [phone] [place] [address] 09-10-2022 09:38-0400 Heart rate 64 /min Ryan Yepez MD Work Phone: [facility] 09-10-2022 09:38-0400 SaO2% (BldA) [Mass fraction] 96 % Ryan Yepez MD Work Phone: [facility] 09-10-2022 09:38-0400 Systolic blood pressure 129 mm[Hg] Ryan Yepez MD Work Phone: [facility] 07-07-2022 13:48-0400 Diastolic blood pressure 76 mm[Hg] Ryan Yepez MD Work Phone: [facility] 07-07-2022 13:48-0400 Heart rate 82 /min Ryan Yepez MD Work Phone: [facility] 07-07-2022 13:48-0400 SaO2% (BldA) [Mass fraction] 96 % Ryan Yepez MD Work Phone: [facility] 07-07-2022 13:48-0400 Systolic blood pressure 141 mm[Hg] Ryan Yepez MD Work Phone: [facility] 06-27-2022 13:32-0400 Body height 170.2 cm Ryan Yepez MD Work Phone: [facility] 06-27-2022 13:32-0400 Body mass index (BMI) [Ratio] 34.24 kg/m2 Ryan Yepez MD Work Phone: [facility] 06-27-2022 13:32-0400 Body temperature 98.6 [degF] Ryan Yepez MD Work Phone: [facility] 06-27-2022 13:32-0400 Body weight 99.16 kg Ryan Yepez MD Work Phone: [facility] 06-27-2022 13:32-0400 Diastolic blood pressure 78 mm[Hg] Ryan Yepez MD Work Phone: [facility] 06-27-2022 13:32-0400 Heart rate 77 /min Ryan Yepez MD Work Phone: [facility] 06-27-2022 13:32-0400 SaO2% (BldA) [Mass fraction] 95 % Ryan Yepez MD Work Phone: [facility] 06-27-2022 13:32-0400 Systolic blood pressure 121 mm[Hg] Ryan Yepez MD Work Phone: [facility] 06-27-2022 10:52-0400 Body height 170.2 cm Rena Brewster RN [facility] 06-27-2022 10:52-0400 Body mass index (BMI) [Ratio] 34.46 kg/m2 Rena Brewster RN [facility] 06-27-2022 10:52-0400 Body temperature 98.2 [degF] Rena Brewster RN [facility] 06-27-2022 10:52-0400 Body weight 99.79 kg Rena Brewster RN [facility] 06-27-2022 10:52-0400 Diastolic blood pressure 73 mm[Hg] Rena Brewster RN [facility] 06-27-2022 10:52-0400 Heart rate 78 /min Rena Brewster RN [facility] 06-27-2022 10:52-0400 Respiratory rate 20 /min Rena Brewster RN [facility] 06-27-2022 10:52-0400 SaO2% (BldA) [Mass fraction] 97 % Rena Brewster RN [facility] 06-27-2022 10:52-0400 Systolic blood pressure 135 mm[Hg] Rena Brewster RN [facility] 06-12-2022 14:23-0400 Body mass index (BMI) [Ratio] 34.59 kg/m2 Steve Tammy MBBS Work Phone: [facility] 06-12-2022 14:23-0400 Body temperature 97 [degF] Steve Tammy MBBS Work Phone: [facility] 06-12-2022 14:23-0400 Body weight 100.2 kg Steve Tammy MBBS Work Phone: [facility] 06-12-2022 14:23-0400 Diastolic blood pressure 66 mm[Hg] Steve Tammy MBBS Work Phone: [facility] 06-12-2022 14:23-0400 Heart rate 63 /min Steve Tammy MBBS Work Phone: [facility] 06-12-2022 14:23-0400 Systolic blood pressure 133 mm[Hg] Steve Tammy MBBS Work Phone: [facility] 05-20-2022 15:21-0400 Body temperature 97.9 [degF] Gian Villatoro MD Work Phone: [facility] 05-20-2022 15:21-0400 Diastolic blood pressure 64 mm[Hg] Gian Villatoro MD Work Phone: [facility] 05-20-2022 15:21-0400 Heart rate 55 /min Gian Villatoro MD Work Phone: [facility] 05-20-2022 15:21-0400 Respiratory rate 15 /min Gian Villatoro MD Work Phone: [facility] 05-20-2022 15:21-0400 SaO2% (BldA) [Mass fraction] 95 % Gian Villatoro MD Work Phone: [facility] 05-20-2022 15:21-0400 Systolic blood pressure 145 mm[Hg] Gian Villatoro MD Work Phone: [facility] 05-19-2022 12:15-0400 Body mass index (BMI) [Ratio] 35.87 kg/m2 Gian Villatoro MD Work Phone: [facility] 05-19-2022 12:15-0400 Body weight 103.92 kg Gian Villatoro MD Work Phone: [facility] Comment on above: standing scale 05-16-2022 16:19-0400 Body height 170.2 cm Gian Villatoro MD Work Phone: [facility] 10-19-2018 08:44-0500 BMI (Body Mass Index) 26.58 kg/m2 [facility] Work Phone: 10-19-2018 08:44-0500 BP Diastolic 76 mm[Hg] [facility] Work Phone: 10-19-2018 08:44-0500 BP Systolic 144 mm[Hg] [facility] Work Phone: 10-19-2018 08:44-0500 Height 172.7 cm [facility] Work Phone: 10-19-2018 08:44-0500 Pulse (Heart Rate) 92 /min [facility] Work Phone: 10-19-2018 08:44-0500 Pulse Oximetry 99 % [facility] Work Phone: 10-19-2018 08:44-0500 Respiratory Rate 16 /min [facility] Work Phone: 10-19-2018 08:44-0500 Weight 79.29 kg [facility] Work Phone: 10-12-2018 09:50-0500 BMI (Body Mass Index) 27.24 kg/m2 [facility] Work Phone: 10-12-2018 09:50-0500 Body Temperature 98.6 [degF] [facility] Work Phone: 10-12-2018 09:50-0500 BP Diastolic 80 mm[Hg] [facility] Work Phone: 10-12-2018 09:50-0500 BP Systolic 157 mm[Hg] [facility] Work Phone: 10-12-2018 09:50-0500 Height 169.5 cm [facility] Work Phone: 10-12-2018 09:50-0500 Pulse (Heart Rate) 94 /min [facility] Work Phone: 10-12-2018 09:50-0500 Weight 78.29 kg Alfredito ramonamelvernkatarzyna [facility] Work Phone: Encounters Encounter [...] procedure Clementina Magalie Montesinos [facility] Start: 09-07-2024 ambulatory ZULY BRUNO Facility: [facility] Start: 09-05-2024 End: 09-05-2024 ambulatory Angel Fete RPh,PharmD [facility] Start: 09-05-2024 End: 09-05-2024 Patient encounter procedure Angel Calee RPh,PharmD [facility] Start: 08-24-2024 ambulatory Steph Almodovar Facility: [facility] Start: 08-23-2024 End: 08-23-2024 ambulatory ZULY BRUNO Not Available Start: 06-23-2024 End: 06-23-2024 ambulatory Meka Munoz [facility] Start: 06-23-2024 End: 06-23-2024 Patient encounter procedure Meka Munoz [facility] [place] Start: 06-17-2024 End: 06-17-2024 Office outpatient visit 25 minutes Daisha Max DO Work Phone: [facility] Comment on above: Liver lesion (Primar y Dx); Liver transplant recipient; High risk medication use; Therapeutic drug monitoring; 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) Start: 06-17-2024 ambulatory DAISHA MAX Facil ity:[facility] Start: 05-26-2024 End: 05-26-2024 ambulatory Evan Bolton RP,PharmD [facility] Start: 05-26-2024 End: 05-26-2024 Patient encounter procedure Evan Bolton RP,PharmD [facility] Start: 05-13-2024 End: 05-13-2024 ambulatory [facility] Start: 04-18-2024 End: 04-18-2024 ambulatory ZULY BRUNO Not Available Start: 03-24-2024 End: 03-24-2024 Patient encounter procedure Angel Carpio [facility],PharmD [facility] Start: 03-24-2024 End: 03-24-2024 ambulatory Angel Carpio RP,PharmD [facility] Start: 03-22-2024 End: 03-22-2024 ambulatory JOHNNA BRINK Not Available Start: 03-17-2024 End: 03-17-2024 ambulatory JOHNNA BRINK Not Available Start: 03-14-2024 End: 03-14-2024 ambulatory FIDELINA SANCHEZ Not Available Start: 03-10-2024 End: 03-10-2024 ambulatory JOHNNA BRINK Not Available Start: 03-08-2024 End: 03-08-2024 ambulatory JOHNNA BRINK Not Available Start: 03-03-2024 End: 03-03-2024 ambulatory JOHNNA BRINK Not Available Start: 03-02-2024 End: 03-02-2024 ambulatory Meka Munoz [facility] Start: 03-02-2024 End: 03-02-2024 Patient encounter procedure Meka Munoz [facility] Start: 03-01-2024 ambulatory ZULY BRUNO Facility: [facility] Start: 03-01-2024 End: 03-01-2024 ambulatory JOHNNA HOLLIDAY Not Available Start: 02-26-2024 ambulatory CANDIE ALMAGUER Facility: [facility] Start: 02-26-2024 End: 02-26-2024 Office outpatient new 30 minutes Candie Almaguer MD Work Phone: Control Technician Center [facility] Comment on above: Heart failure, diast olic, acute (Primary Dx) Start: 02-26-2024 ambulatory KELVIN Angel BENTONTARA Facility: [facility] Start: 02-25-2024 End: 02-25-2024 ambulatory FIDELINA SANCHEZ Not Available Start: 02-23-2024 End: 02-23-2024 ambulatory PALMA PALACIOS Not Available Start: 02-11-2024 Patient encounter procedure Generic Provider [facility] Start: 02-11-2024 End: 02-11-2024 ambulatory ZULY BRUNO Not Available Start: 01-16-2024 End: 01-23-2024 Encounter for other preprocedural examination KELVIN PACHECO Facility:[facility] Start: 01-16-2024 End: 01-23-2024 Evaluation and management of inpatient Kevin Prince MD Work Phone: [id number] Comment on above: Pleural effusion on right Start: 01-16-2024 End: 01-23-2024 Patient encounter status Kevin Prince MD Work Phone: [facility] Work Phone: Start: 01-12-2024 End: 01-12-2024 ambulatory Angel Fete RPh,PharmD Pharmacy Outpatient [facility] [place] Start: 01-12-2024 End: 01-12-2024 Patient encounter procedure Angel Fete RPh,PharmD Pharmacy Outpatient [facility] [place] Start: 01-08-2024 Clinisync Result Encounter Generic External Data Provider [facility] External Department Unsolicited Start: 01-08-2024 Clinisync Result Encounter Generic External Data Provider [facility] External Department Unsolicited Start: 01-06-2024 End: 01-06-2024 Office outpatient visit 25 minutes Zuly Bruno LIQUOR BRIDGE OPERATOR Work Phone: [facility] Comment on above: Bilateral lower extr emity edema (Primary Dx); 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); Atherosclerosis 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); Obesity (BMI 30-39.9); DARLENE (obstructive sleep apnea); Tremor; Immunocompromised (CMS/HCC); Primary hypertension ([facility]); Shortness of breath Start: 01-06-2024 End: 01-06-2024 ambulatory ZULY KRISTOPHERHHOLZ Not Available Start: 01-01-2024 Clinisync Result Encounter Generic External Data Provider [facility] External Department Unsolicited Start: 01-01-2024 Clinisync Result Encounter Generic External Data Provider [facility] External Department Unsolicited Start: 11-03-2023 End: 11-03-2023 ambulatory ZULY FLORESLATISHAZ Not Available Start: 10-06-2023 ambulatory Angel Madsene [facility],PharmD Pharmacy Outpatient [facility] [place] Start: 10-06-2023 Patient encounter procedure Angel Carpio [facility],PharmD Pharmacy Outpatient [facility] [place] Start: 09-29-2023 ambulatory ZULY KIANA Facility: [facility] Start: 09-23-2023 [facility] Facility[facility] Start: 09-15-2023 ambulatory [facility] Facility: [facility] Start: 08-28-2023 End: 09-11-2023 Evaluation and [facility] [place] Start: 06-12-2023 End: 06-12-2023 Office outpatient visit 25 minutes Steve LEIGH Work Phone: [facility] Comment on above: 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) Start: 06-10-2023 ambulatory Maren Bar RPh,PharmD Pharmacy Outpatient [facility] [place] Start: 06-10-2023 Patient encounter procedure Maren Bar RPh,PharmD Pharmacy Outpatient [facility] [place] Start: 04-28-2023 End: 04-29-[address] DOCTOR EVANS Facility:[facility] Start: 03-12-2023 ambulatory Angel Fete RPh,PharmD Pharmacy Outpatient [facility] [place] Start: 03-12-2023 Patient encounter procedure Angel Fete RPh,PharmD Pharmacy Outpatient [facility] [place] Start: 03-10-2023 ambulatory Angel Fete RPh,PharmD Pharmacy Outpatient [facility] [place] Start: 03-10-2023 Patient encounter procedure Angel Fete RPh,PharmD Pharmacy Outpatient [facility] [place] Start: 03-02-2023 End: 03-03-[address] DOCTOR EVANS Facility:[facility] Start: 01-16-2023 End: 01-16-2023 Office outpatient visit 25 minutes Daisha Max DO Work Phone: [facility] Comment on above: Abnormal blood [...] MD Work Phone: [facility] Comment on above: BPH with obstruction /lower urinary tract symptoms (Primary Dx); Encounter for screening for malignant neoplasm of prostate Start: 08-28-2022 End: 08-29-2022 ambulatory ROB BRUNO Facility:[facility] Start: 08-14-2022 End: 08-15-[address] DOCTOR EVANS Facility:[facility] Start: 07-07-2022 End: 07-07-2022 Patient encounter procedure Ryan Yepez MD Work Phone: [facility] Comment on above: Other hydronephrosis (Primary Dx); [...] MD Work Phone: [facility] Comment on above: Other hydronephrosis (Primary Dx) [...] Facility: Start: 03-14-2022 ambulatory Comfort Che Miguel [facility] Work Phone: Pharmacy Outpatient [facility] [place] Start: 03-14-2022 Patient encounter procedure Comfort Rivera [facility] Work Phone: Pharmacy Outpatient [facility] [place] Start: 06-14-2021 End: 06-14-2021 ambulatory Comfort Rivera [facility] Work Phone: [facility] Start: 06-14-2021 Patient encounter procedure Comfort Rivera [facility] Work Phone: [facility] Start: 01-20-2020 End: 01-27-2020 Patient encounter procedure PEPE CASE Facility:[facility] Start: 01-06-2020 End: 01-07-2020 Patient encounter procedure [facility] Start: 01-06-2020 End: 01-06-2020 Subsequent hospital visit by physician [facility] Start: 10-24-2019 End: 10-25-2019 Patient encounter procedure TANAMINAL CAMPA [facility] Start: 10-24-2019 End: 10-24-2019 Subsequent hospital visit by physician [facility] Start: 08-27-2019 End: 08-28-2019 Patient encounter procedure [facility] Start: 08-27-2019 End: 08-27-2019 Subsequent hospital visit by physician [facility] Start: 08-08-2019 End: 08-09-2019 Patient encounter procedure ROB PATINO [facility] [place] Start: 08-08-2019 End: 08-08-2019 Subsequent hospital visit by physician [facility] Start: 08-03-2019 End: 08-04-2019 [facility] Start: 08-03-2019 End: 08-03-2019 Subsequent hospital visit by physician [facility] Start: 08-01-2019 End: 08-02-2019 [facility] Start: 08-01-2019 End: 08-01-2019 Subsequent hospital visit by physician [facility] Start: 06-10-2019 End: 06-11-2019 Patient encounter procedure RENA GUDINO [facility] Start: 06-01-2019 End: 06-02-2019 Patient encounter procedure RENA GUDINO [facility] Start: 01-14-2019 End: 01-15-2019 [facility] Start: 11-17-2018 End: 11-17-2018 Patient encounter procedure Fidelina Pantojaman [facility] Pre Transplant Office Comment on above: Social Work Follow-u p Start: 10-19-2018 End: 10-19-2018 Patient encounter [facility] Pre Transplant Office Comment [...] End: 10-12-2018 Patient encounter procedure Sophie Cary [facility] Pre Transplant Office Comment on above: Alcoholic cirrhosis, unspecified whether ascites present (Primary Dx); Pre-transplant evaluation for liver transplant Start: 10-12-2018 End: 10-12-2018 Office outpatient new 60 minutes Alfredito Restrepo Work Phone: [facility] Pre Transplant Office [...] [facility] Work Phone: [facility] Procedures Date Procedure Procedure Detail [...] By: #### C HM7, HFP, MGO #### [facility] (DEFAULT) [address] [address] Start: 01-22-2024 Assay of magnesium Just in [...] Phone: Start: 01-20-2024 ITRACONAZOLE LEVEL Jennifer Alarcon [facility] Work Phone: Start: 01-20-2024 Oscillating positive expiratory [...] nos quantifica tion each organism Fidelina Alarcon [facility] Work Phone: Start: 01-18-2024 Echo tthrc r-t [...] AURIS SCREEN BY PCR Carol Ann Capps DIABETOLOGIST-PARCEL POST WEIGHER Work Phone: Start: 01-08-2024 ALL CBC WITH [...] w/h iv-1 & hiv-2 antbdy single Evan eKlly MD Work Phone: Start: 09-01-2023 Iaad ia [...] AURIS SCREEN BY PCR Carol Ann Capps DIABETOLOGIST-[employer]CEL POST WEIGHER Work Phone: Start: 08-28-2023 CBC AND ELECTRONIC [...] above: Performed By: #### C MP #### [facility] [address] [place], [place] [address] Dr. Dwight Waters Start: 07-07-2022 Rmvl nfros tube req fluoro guidance Ryan Yepez MD Work Phone: Start: 06-27-2022 Ct abdomen & pelvis w/o contrast material Evan Byrd MD Work Phone: Start: 06-12-2022 Culture bct isol&prs mptv id isolate ea urine Steve S Tammy [facility] Work Phone: Start: 06-12-2022 EXTRA MICRO Steve S Nor i MBBS Work Phone: Start: 06-12-2022 Hemoglobin glycosyla rukhsana a1c Steve S Tammy [facility] Work Phone: Start: 06-12-2022 Hepatic function panel Yovani Orr MD Work Phone: Start: 06-12-2022 URINALYSIS REFLEX TO CULTURE Steve S Tammy [facility] Work Phone: Start: 05-20-2022 Urography antegrade rs&i [...] End: 10-12-2018 Assay of ethanol Yovani Mejias [email or web address] Work Phone: Start: 10-12-2018 End: 10-12-2018 Assay of ferritin Yovani Mejias [employer] Work Phone: Start: 10-12-2018 End: 10-12-2018 Assay of iron Yovani Mejias [email or web address] Work Phone: Start: 10-12-2018 End: 10-12-2018 Assay of parathormone Yovani Mejias [email or web address] Work Phone: Start: 10-12-2018 End: 10-12-2018 Assay [...] transplant Kidney replaced by transplant Rebeca Gutierrez APRN-COMMUNITY ENGAGEMENT SPECIALIST Work Phone: Plan of Treatment Date Care Activity Detail Author Start: 09-20-2029 Screening for malignant neoplasm of colon [facility] Start: 08-15-2025 Potassium [Moles/volume] in Serum or Plasma POTASSIUM [facility] Start: 07-04-2025 Potassium [Moles/volume] in Serum or Plasma POTASSIUM [facility] Start: 06-20-2025 Potassium [Moles/volume] in Serum or Plasma POTASSIUM [facility] Start: 06-16-2025 End: 06-16-2025 Patient encounter procedure [facility] Start: 06-13-2025 Potassium [Moles/volume] in Serum or Plasma POTASSIUM [facility] Start: 05-23-2025 Potassium [Moles/volume] in Serum or Plasma POTASSIUM [facility] Start: 03-28-2025 Potassium [Moles/volume] in Serum or Plasma POTASSIUM [facility] Start: 03-21-2025 Potassium [Moles/volume] in Serum or Plasma POTASSIUM [facility] Start: 02-28-2025 Potassium [Moles/volume] in Serum or Plasma POTASSIUM [facility] Start: 02-10-2025 Medicare Annual Wellness (AWV) Medicare Annual Wellness (AWV) [facility] Start: 01-23-2025 Potassium [Moles/volume] in Serum or Plasma POTASSIUM [facility] Start: 10-25-2024 End: 10-25-2024 Patient encounter procedure 10/25/2024 8:40 AM EST Office Visit [facility] [address] [place] [address] Zuly Bruno NP [address] [place] [address] [facility] Start: 09-29-2024 Influenza vaccination Influenza Vaccine (#1) [facility] Comment on above: Postponed from 07/31/2024 (Patient Refus ed) Start: 09-07-2024 End: 09-07-2024 Telemedicine consultation with patient 09/07/2024 3:00 PM EDT Telemedicine Infectious Diseases Care [facility] [address] [facility] 4th [place] [phone] Evan White DO [address] [place], [place] [phone] Infectious [facility] Start: 08-31-2024 Screening for malignant neoplasm of lung [facility] Start: 07-31-2024 Influenza vaccination INFLUENZA VACCINE (#1) [facility] Start: 06-17-2024 End: 06-17-2024 ambulatory [facility] Start: 06-17-2024 End: 06-17-2024 Patient encounter procedure [facility] Start: 03-22-2024 Fasting lipid profile LIPID SCREENING [facility] Start: 03-22-2024 Lipid panel [facility] Start: 02-26-2024 End: 02-26-2024 Patient encounter procedure 02/26/2024 9:30 AM EDT [facility] [address] [place] [address] Candie Almaguer MD [address] [place] [address] [facility] Start: 02-11-2024 End: 02-11-2024 Patient encounter procedure 02/11/2024 10:30 AM EDT Office Visit [facility] [address] [place] [address] Zuly Bruno, LIQUOR BRIDGE OPERATOR [address] [place] [phone] [facility] Start: 02-09-2024 End: 02-09-2024 Telemedicine consultation with patient 02/09/2024 3:30 PM EDT Telemedicine Infectious [facility] [address] [facility] [address] [place] [phone] Hakeem Alamo MD [address] [place] [address] [facility] Start: 01-15-2024 End: 01-15-2024 ambulatory [facility] Start: 01-15-2024 End: 01-15-2024 Patient encounter procedure [facility] Start: 01-06-2024 End: 01-06-2026 Echocardiogram 2D complete Echocardiogram 2D complete Echocardiography Routine DARLENE (obstructive sleep apnea) Primary hypertension (CMS/HCC) Bilateral lower extremity edema Shortness of breath Expected: 01/06/2024 (Approximate), Expires: 01/06/2026 [facility] Work Phone: Comment on above: Expected: 01/06/2024 (Approximate), Expi res: 01/06/2026 Start: 01-06-2024 End: 01-06-2024 Patient encounter procedure 01/06/2024 9:00 AM EST Office Visit [facility] [address] [place] [address] Zuly Bruno, LIQUOR BRIDGE OPERATOR [address] [place] [phone] [facility] Start: 12-08-2023 End: 09-07-2024 CT Chest WO contrast [facility] Work Phone: Start: 12-01-2023 COVID-19 VACCINE (2 - Moderna risk series) COVID-19 VACCINE (2 - Moderna risk series) [facility] Start: 09-23-2023 End: 09-23-[address] [facility] Start: 09-23-2023 End: 09-23-2023 Telemedicine consultation with patient 09/23/2023 4:00 PM EDT Telemedicine Infectious [facility] [address] [place] [address] Hakeem Alamo MD [address] [facility] [address] [place] [address] [facility] Start: 09-15-2023 End: 09-10-2024 ITRACONAZOLE LEVEL [facility] Start: 08-25-2023 End: 08-25-2024 ALLOSCREEN RECIPIENT (POST TX PRA) ALLOSCREEN RECIPIENT (POST TX PRA) Lab Routine Kidney replaced by transplant Aftercare following organ transplant Immunosuppressed status High risk medication use Other general symptoms and signs Abnormal blood chemistry Expected: 08/25/2023, Expires: 08/25/2024 [facility] Comment on above: Expected: 08/25/2023, Expires: Start: 07-31-2023 Influenza vaccination [facility] Start: 06-12-2023 End: 06-12-2023 Patient encounter procedure 06/12/2023 Office Visit Transplant Surgery Steve Munoz, LU [address] [place] [address] [facility] Start: 03-11-2023 End: 03-11-2023 Telemedicine consultation with patient 03/11/2023 Telemedicine Urology Ryan Yepez MD [address] [place] [address] [facility] Start: 01-16-2023 End: 01-16-2023 Patient encounter procedure 01/16/2023 Office Visit Transplant Surgery [facility] Start: 10-31-2022 End: 10-31-2022 Patient encounter procedure 10/31/2022 Office Visit Transplant Surgery Steve Munoz, LU [address] [place] [address] [facility] Start: 09-10-2022 End: 09-10-2023 PSA screening PSA, SCREENING Lab Routine BPH with obstruction/lower urinary tract symptoms Encounter for screening for malignant neoplasm of prostate Expected: 09/10/2022 (Approximate), Expires: 09/10/2023 [facility] Comment on above: Expected: 09/10/2022 (Approximate), Expi res: 09/10/2023 Start: 08-11-2022 End: 08-11-2022 Patient encounter procedure 08/11/2022 Office Visit Urology Ryan Yepez MD [address] [place] [address] [facility]rology [facility] Start: 07-31-2022 Influenza vaccination [facility] Start: 07-07-2022 End: 07-07-2022 Patient encounter procedure 07/07/2022 Office Visit Urology Ryan Yepez MD [address] [place] [phone] [facility] Start: 07-07-2022 End: 07-07-2023 FLUORO IMAGING FOR UROLOGY [facility] Comment on above: Expected: 07/07/2022, Expires: 3 1 Occurrences starti ng 07/07/2022 until 07/07/2022 Start: 06-27-2022 End: 06-27-2022 Patient encounter procedure 06/27/2022 Office Visit Urology Ryan Yepez MD [address] [place] [address] [facility] Start: 06-27-2022 End: 06-27-2023 Basic metabolic 2000 panel - Serum or Plasma BASIC METABOLIC PANEL Lab Routine Other hydronephrosis Expected: 06/27/2022, Expires: 06/27/2023 [facility] Comment on above: Expected: 06/27/2022, Expires: Start: 06-27-2022 End: 06-27-2022 Patient encounter procedure 06/27/2022 Appointment Computerized Tomography Scan Ryan Yepez MD [address] [place] [address] Department of Radiology Start: 06-15-2022 End: 05-16-2023 CT Abdomen and Pelvis WO contrast CT ABDOMEN/PELVIS WITHOUT CONTRAST Imaging Routine FAYE (acute kidney injury) Expected: 06/15/2022 (Approximate), Expires: 05/16/2023 [facility] Work Phone: Comment on above: Expected: 06/15/2022 (Approximate), Expi res: 05/16/2023 Start: 06-12-2022 End: 06-12-2022 Patient encounter procedure 06/12/2022 Office Visit Transplant Surgery Steve Munoz MBBS [address] [place] [address] [facility] Start: 06-11-2022 End: 06-11-2023 BK VIRUS DNA QN, PCR, PLASMA BK VIRUS DNA QN, PCR, PLASMA Lab Routine Kidney replaced by transplant Liver replaced by transplant Abnormal blood chemistry Expected: 06/11/2022, Expires: 06/11/2023 [facility] Comment on above: Expected: 06/11/2022, Expires: Start: 06-04-2022 End: 06-04-2022 Patient encounter procedure 06/04/2022 Office Visit Interventional Radiology [facility] Start: 10-18-2021 End: 10-18-2021 Patient encounter procedure 10/18/2021 Office Visit Transplant Surgery Steve Munoz, LU [address] [place] [phone] [facility] Start: 07-31-2021 Influenza vaccination INFLUENZA VACCINE (#1) [facility] Start: 07-26-2021 End: 07-26-2021 Patient encounter procedure 07/26/2021 Office Visit Transplant Surgery [facility] Start: 2021 Prostate specific antigen measurement [facility] Start: 2021 Screening for malignant neoplasm of lung LUNG CANCER SCREENING [facility] Start: 2021 Zoster vaccine hzv live for subcutaneous use ZOSTER (SHINGLES) VACCINE (1 of 2) [facility] Start: 09-20-2020 Colonoscopy COLORECTAL CANCER SCREENING DISCUSSION [facility] Start: 09-20-2020 Screening for malignant neoplasm of colon [facility] Start: 07-31-2019 Influenza vaccination Flu vaccine (#1) [place] Start: 05-22-2019 Annual Wellness Visit (AWV) Annual Wellness Visit (AWV) [place] Start: 04-18-2019 End: 10-19-2019 Ultrasonography of abdomen US ABDOMEN RUQ/LIVER/GB Routine Cirrhosis of liver without ascites, unspecified hepatic cirrhosis type Expected: 04/18/2019 (Approximate), Expires: 10/19/2019 [facility] Work Phone: Comment on above: Expected: 04/18/2019 (Approximate), Expi res: 10/19/2019 Start: 01-25-2019 End: 01-25-2019 Ambulatory 01/25/2019 Office Visit Gastroenterology Christin Elizabeth, DIABETOLOGIST-COMMUNITY ENGAGEMENT SPECIALIST [address] [place] [phone] Division of Gastroenterology and Hepatology [place] Start: 11-19-2018 End: 11-19-2018 Ambulatory 11/19/2018 Appointment Pulmonary Diagnostics [facility] Start: 11-19-2018 End: 11-19-2018 Ambulatory [facility] Start: 10-19-2018 End: 10-19-2018 Ambulatory Ultrasound Jakob Start: 10-12-2018 End: 10-12-2019 Hemoglobin A1c/Hemoglobin.total mass fraction (Bld) HEMOGLOBIN A1C Routine Alcoholic cirrhosis, unspecified whether ascites present Pre-transplant evaluation for liver transplant Expected: 10/12/2018, Expires: 10/12/2019 [facility] Work Phone: Comment on above: Expected: 10/12/2018, Expires: 9 Start: 10-12-2018 End: 10-12-2019 TYPE AND SCREEN - NOT FOR TRANSFUSION TYPE AND SCREEN - NOT FOR TRANSFUSION Routine Alcoholic cirrhosis, unspecified whether ascites present Pre-transplant evaluation for liver transplant Expected: 10/12/2018, Expires: 10/12/2019 [facility] Work Phone: Comment on above: Expected: 10/12/2018, Expires: 9 Start: 07-31-2018 Influenza vaccination INFLUENZA VACCINE (#1) [facility] Work Phone: Start: 2011 Fasting lipid profile LIPID SCREENING [facility] Work Phone: Start: 2011 Lipid screen Lipid screen [place], [place] Start: 1990 DTaP/Tdap/Td vaccine (1 - Tdap) DTaP/Tdap/Td vaccine (1 - Tdap) [place] Start: 1990 Hepatitis B vaccination HEP B VACCINE (1 of 3 - 19+ 3-dose series) [facility] Start: 1990 Hepatitis B Vaccine (1 of 3 - Risk Recombivax 3-dose series) Hepatitis B Vaccine (1 of 3 - Risk Recombivax 3-dose series) [place] Start: 1990 Third diphtheria, tetanus and acellular pertussis (DTaP) vaccination [facility] Start: 1990 Zoster vaccine hzv live for subcutaneous use ZOSTER (SHINGLES) VACCINE (1 of 2) [facility] Start: 1990 [facility] Start: 1989 Tetanus vaccination TETANUS [facility] Start: 1986 HIV screen HIV screen [place], [place] Start: 02-17-1984 HIV screening HIV SCREENING DISCUSSION [facility] Work Phone: Start: 1983 COVID-19 VACCINE (1) COVID-19 VACCINE (1) [facility] Start: 1982 DTaP/Tdap/Td vaccine (1 - Tdap) DTaP/Tdap/Td vaccine (1 - Tdap) [place], [place] Start: 1977 Pneumococcal 0-64 years Vaccine (1 of 3 - PCV13) Pneumococcal 0-64 years Vaccine (1 of 3 - PCV13) [place], [place] Start: 1977 PNEUMOCOCCAL VACCINE SERIES (1 - PCV) PNEUMOCOCCAL VACCINE SERIES (1 - PCV) [facility] Start: 1977 PNEUMOCOCCAL VACCINE SERIES (1 of 2 - PCV) PNEUMOCOCCAL VACCINE SERIES (1 of 2 - PCV) [facility] Start: 1977 [facility] Start: 02-17-1976 COVID-19 VACCINE (#1) COVID-19 VACCINE (#1) [facility] Start: 02-17-1976 [facility] Start: 1971 COVID-19 VACCINE (#1) COVID-19 VACCINE (#1) [facility] Start: 1971 Hepatitis B vaccination HEP B VACCINE (1 of 3 - 3-dose series) [facility] Start: 1971 Medicare Annual Wellness (AWV) Medicare Annual Wellness (AWV) [facility] [facility] Start: 1971 Screening for malignant neoplasm of colon [facility] Start: 1971 Tetanus vaccination [facility] BK VIRUS DNA QN, PCR , PLASMA BK VIRUS DNA QN, PCR, PLASMA Lab Routine Kidney replaced by transplant Liver replaced by transplant Abnormal blood chemistry 06/12/2022 3:38 PM EDT [facility] CALCULI, URINARY (KIDNEY STONE) CALCULI, URINARY (KIDNEY STONE) Fluids Routine 05/19/2022 8:16 AM EDT [facility] Work Phone: CANNABINOIDS, QUANT (URINE)THC CONFIRMATION CANNABINOIDS, QUANT (URINE)THC CONFIRMATION Routine Alcoholic cirrhosis, unspecified whether ascites present ESRD (end stage renal disease) on dialysis Pre-transplant evaluation for liver transplant 10/12/2018 12:57 PM [facility] Work Phone: End: 09-10-2024 CHEM 6 (LYTES, BUN CREA) [facility] EBV VCA IGG AB EBV VCA IGG AB R outine Alcoholic cirrhosis, unspecified whether ascites present ESRD (end stage renal disease) on dialysis Pre-transplant evaluation for liver transplant 10/12/2018 12:57 PM [facility] Work Phone: Fungus identified in Unspecified specimen by Culture [facility] HLA TYPING (SOLID ORGAN) HLA TYPING (SOLID ORGAN) Routine Alcoholic cirrhosis, unspecified whether ascites present ESRD (end stage renal disease) on dialysis Pre-transplant evaluation for liver transplant 10/12/2018 12:57 PM [facility] Work Phone: HSV 1 AND 2 IGG ANTIBODY HSV 1 AND 2 IGG ANTIBODY Routine Alcoholic cirrhosis, unspecified whether ascites present ESRD (end stage renal disease) on dialysis Pre-transplant evaluation for liver transplant 10/12/2018 12:57 PM [facility] Work Phone: MR Abdomen WO and W contrast IV MRI ABDOMEN WITH AND WITHOUT CONTRAST Imaging Routine Liver lesion Ordered: 06/17/2024 [facility] Comment on above: Ordered: 06/17/2024 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 specific culture [facility] PLACEMENT NEPHROSTOM Y CATHETER PERCUTANEOUS W/ IMAGE GUIDANCE PLACEMENT NEPHROSTOMY CATHETER PERCUTANEOUS W/ IMAGE GUIDANCE Imaging Routine Hydronephrosis due to obstruction of ureteral orifice FAYE (acute kidney injury) 05/17/2022 11:08 AM EDT [facility] DE POST VOID RESIDUAL DE POST VO ID RESIDUAL DE - OFFICE PERFORMED Routine BPH with obstruction/lower urinary tract symptoms Ordered: 09/10/2022 [facility] Comment on above: Ordered: 09/10/2022 PTH INTACT PTH INTACT Routi ne Alcoholic cirrhosis, unspecified whether ascites present ESRD (end stage renal disease) on dialysis Pre-transplant evaluation for liver transplant 10/12/2018 12:57 PM [facility] Work Phone: RUBEOLA IGG AB (IMMU NE STATUS) RUBEOLA IGG AB (IMMUNE STATUS) Routine Alcoholic cirrhosis, unspecified whether ascites present ESRD (end stage renal disease) on dialysis Pre-transplant evaluation for liver transplant 10/12/2018 12:57 PM [facility] Work Phone: End: 01-16-2024 Standard ECG ECG ECG Routine One Time for 1 Occurrences starting 01/16/2024 until 01/16/2024 [facility] Comment on above: One Time for 1 Occurrences starting 12/31 until 01/16/2024 End: 09-10-2024 TACROLIMUS LEVEL, TROUGH (PRE DRUG LEVEL) [facility] VARICELLA IGG AB (IM M STATUS) VARICELLA IGG AB (IMM STATUS) Routine Alcoholic cirrhosis, unspecified whether ascites present ESRD (end stage renal disease) on dialysis Pre-transplant evaluation for liver transplant 10/12/2018 12:57 PM [facility] Work Phone: Immunizations Immunization Date Immunization Notes Care Provider Zeeshan yi 11-03-2023 influenza virus vacc ine, unspecified formulation Generic Provider [facility] 11-03-2023 Influenza, injectabl e, Madin [place] Canine Kidney, preservative free, quadrivalent Generic Provider [facility] 11-03-2023 Moderna SARS-CoV-2 50mcg/0.5mL Booster Generic Provider [facility] 08-28-2022 influenza, injectabl e, quadrivalent, preservative free Generic Provider [facility] 09-30-2021 influenza, injectabl e, quadrivalent, preservative free Generic Provider [facility] 10-16-2020 influenza, injectabl e, quadrivalent, contains preservative Generic Provider [facility] Payers Date Payer Category Payer Unknown [id number] 2019 Unknown [facility] [id number] 2019-Present [id number] .[id number] 2018 Medicaid MEDICAID [place] [facility] JOB xxxxxxxxxxxx 2018-Present [phone] [address] [place] [address] xxxxxxxxxxxx [id number] .287489.315 2018 Medicaid MEDICAID MEDICAI D [id number] 2018-Present [address] [place] [address] [id number] [id number].3 .[id number] 2018 Medicaid [id number]. 1.13.172.2.7.3 .510343.315 2018 Medicare MEDICARE MEDICAR E PART A AND B xxxxxxxxxxx 2018-Present [phone] [address] [address] [place] [address] xxxxxxxxxxx 1.2.840.594985.1.13.239.2.7.3 .505451.315 2018 Medicare [id number] 2018 Medicare MEDICARE MEDICAR E A AND B [id number] 2018-Present [address] [place] [address] [id number] 1.2.840.251088.1.13.172.2.7.3 .153789.315 2018 Medicare 1.2.840.356545. 1.13.172.2.7.3 .955409.315 1971 Unknown [id number] 2.16.840.1.314649.3.579.2.173 1971 Unknown [id number] 2.16.840.1.384647.3.579.2.173 1971 Unknown [id number] 2.16.840.1.763188.3.579.2.173 1971 Unknown [id number] 2.16.840.1.988784.3.579.2.173 1971 Unknown [id number] 2.16.840.1.277452.3.579.2.173 1971 Unknown [id number] 2.16.840.1.399670.3.579.2.173 1971 Unknown [id number] 2.16.840.1.816613.3.579.2.173 1971 Unknown [id number] 2.16.840.1.978739.3.579.2.173 1971 Unknown [id number] 2.16.840.1.595242.3.579.2.647 1971 Unknown [id number] 2.16.840.1.665143.3.579.2.593 1971 Unknown [id number] 2.16.840.1.805423.3.579.2.593 1971 Unknown [id number] 2.16.840.1.582650.3.579.2.593 1971 Unknown [id number] 2.16.840.1.897419.3.579.2.593 1971 Unknown [id number] 2.16.840.1.111050.3.579.2.593 1971 Unknown [id number] 2.16.840.1.051558.3.579.2.593 1971 Unknown [id number] 2.16.840.1.423283.3.579.2.593 1971 Unknown [id number] 2.16.840.1.089664.3.579.2.593 1971 Unknown [id number] 2.16.840.1.397669.3.579.2.593 1971 Unknown [id number] 2.16.840.1.816826.3.579.2.593 1971 Unknown [id number] 2.16.840.1.402890.3.579.2.593 1971 Unknown [id number] 2.16.840.1.051376.3.579.2.593 1971 Unknown [id number] 2.16.840.1.091563.3.579.2.593 1971 Unknown [id number] 2.16.840.1.833608.3.579.2.593 1971 Unknown [id number] 2.16.840.1.030544.3.579.2.593 1971 Unknown [id number] 2.16.840.1.337577.3.579.2.125 9 1971 Unknown [id number] 2.16.840.1.582554.3.579.2.125 9 1971 Unknown [id number] 2.16.840.1.718374.3.579.2.125 9 1971 Unknown [id number] 2.16.840.1.776356.3.579.2.125 9 1971 Unknown [id number] 2.16.840.1.743538.3.579.2.125 9 1971 Unknown [id number] 2.16.840.1.531167.3.579.2.125 9 1971 Unknown [id number] 2.16.840.1.343307.3.579.2.125 9 1971 Unknown [id number] 2.16.840.1.632291.3.579.2.125 9 1971 Unknown [id number] 2.16.840.1.901298.3.579.2.125 9 1971 Unknown [id number] 2.16.840.1.172166.3.579.2.125 9 1971 Unknown [id number] 2.16.840.1.053241.3.579.2.125 9 1971 Unknown [id number] 2.16.840.1.871809.3.579.2.125 9 1971 Unknown [id number] 2.16.840.1.869347.3.579.2.125 9 1971 Unknown [id number] 2.840.1.062634.3.579.2.125 9 1971 Unknown [id number] 2.16.840.1.400738.3.579.2.125 9 1971 Unknown [id number] .840.1.310545.3.579.2.594 1971 Unknown [id number] .840.1.587182.3.579.2.594 1971 Unknown [id number] 840.1.333193.3.579.2.594 1971 Unknown [id number] .16.840.1.820872.3.579.2.594 1971 Unknown [id number] .16840.1.895157.3.579.2.594 1971 Unknown [id number] .840.1.512573.3.579.2.594 1971 Unknown [id number] .16840.1.275629.3.579.2.594 1971 Unknown [id number] 2.16.840.1.403409.3.579.2.594 1971 Unknown [id number] 2.16.840.1.780654.3.579.2.594 1971 Unknown [id number] 2.16.840.1.619160.3.579.2.594 1971 Unknown [id number] 2.16.840.1.417473.3.579.2.594 1971 Unknown [id number] 2.16.840.1.621221.3.579.2.727 1971 Unknown [id number] 2.16.840.1.395528.3.579.2.727 1958 Medicaid [id number] 1958 Medicare [id number] Social History Date Type Detail Facility Start: 10-19-2018 End: 11-03-2023 Tobacco smoking status PRIS Former smoker [facility] Start: 07-19-1988 End: 05-14-2018 History of tobacco use Current smoker [facility] Work Phone: Start: 07-19-1988 End: 05-14-2018 History of tobacco use Cigarette Smoker [facility] Work Phone: Start: 10-19-2018 End: 10-27-2023 Cigarettes smoked current (pack per day) - Reported [facility] End: 07-19-1994 History of tobacco use Chews Tobacco [facility] Work Phone: Start: 1970 Sex Assigned At Not on file [facility] Work Phone: Start: 11-03-2018 Alcohol intake Current non-drinker of alcohol (finding) [place], [place] Start: 06-22-2018 Alcohol Comment Hx of alcoholism [place] Start: 11-03-2018 End: 10-27-2023 Alcohol intake No [facility] Start: 07-19-2018 Tobacco use and exposure Former user [facility] Start: 09-06-2020 End: 08-23-2024 Alcohol intake Ex-drinker (finding) [facility] Start: 07-19-2018 Alcohol Comment stopped 05/14/2018 [facility] Start: 05-05-2022 End: 01-16-2023 Exposure to SARS-CoV-2 (event) Not sure [facility] Start: 07-07-2018 Gender identity Identifies as male gender (finding) [facility] Start: 01-16-2022 Sexual orientation Heterosexual (finding) [facility] Start: 11-03-2023 Tobacco use and exposure [...] Never smoked tobacco (finding) [facility] Do you belong to any clubs or organizations such as congregation groups, unions, fraternal or athletic groups, or school groups? Yes [facility] Are you now , , , , never or living with a partner? [facility] Medical Equipment Procedure Code Equipment Code Equipment Original Text Equipment Identifier Dates [id number] Start: 05-23-2020 [id number] Start: 04-12-2020 [id number] [facility] Start: 05-17-2022 Comment on above: Description: Implant time-out completed by intra-procedural staff including this RN, dental laboratory technician apprentice, and performing physician. The following was completed. [...] 09-08-2024 Functional Status N/A [facility] Clinical Notes 06-14-2021 to 09-08-2024 Starla Jerry - 09/05/2024 3:24 PM Milagros Plymouth - 06/23/2024 8:51 AM Hannah Max DO [...] urethra. Follow these instructions at home: Take mvsi-yae-ajsexdw and prescription medicines only as told by [...] provider. Document Revised: 06/04/2022 Document Reviewed: 06/04/2022 [employer] Patient Education 2023 [employer] Follow Up Care 08/25/2024 09:38:26 With:Clementina James, URL Address: When:3 months Comments:med increase 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 Screening PSA (prostate specific antigen) (Z12.5: Encounter for screening for malignant neoplasm of prostate) No PSA records on file -Will discuss with patient at his follow up Ordered: E&M of New Patient Moderate 45-59 Min 32229 3. History of kidney transplant (Z94.0: Kidney transplant status) 08/29/24 - BUN 18, Cre 1.3, GFR 58 Pt had liver and kidney transplant in 2020 and follows yearly with [facility]. Ordered: E&M of New Patient Moderate 45-59 Min 74791 Orders: tamsulosin, 0.4 mg = 1 cap(s), Oral, BID, X 30 day(s), # 60 cap(s), Refills(s) 11, Pharmacy: [id number], 170, cm, 09/08/24 14:00:00 EDT, Height/Length Dosing, 90, kg, 09/08/24 14:00:00 EDT, Weight Dosing 30626 Measure Post Void residual urine and/or bladder capacity by US- non-imaging Urnls Dip Stick Auto w/o Microscopy POC 48640 Follow-up With When Contact Information Jaguar CASTILLO, [...] Urine Dipstick: Negative (more content not included)... [facility] Comment on above: Result Comment: Elec [...] Follow these instructions at home: ? Take inyy-flv-qgkyjkg and prescription medicines only as told by [...] develop side effec (more content not included)... [facility] 09-05-2024 History of Present illness Narrative [facility] RX OUTREACH ADVANCED: Call Information: Date and Time of Contact: 09/05/2024 3:24 PM Method of Contact: By Phone Contact Type: Prescriptions Contactor: Patient Contactee: [facility] Shipping/Pickup: Medicare B Refill?: No Medication Name: Mycophenolate, prograf Delivery Method: Ship Delivery Location: Home Signature Required: No Receive/Pickup Date: 09/06/2024 Shipping Address: [address] [place] [address] Contact Info: Specialty ([place]) [phone] [facility] [phone] [facility] [phone] David [phone] Bedside Delivery ([facility]) [phone] documented in this encounter [facility] 06-23-2024 History of Present illness Narrative [facility] RX OUTREACH ADVANCED: Call Information: Date and Time of Contact: 06/23/2024 8:52 AM Method of Contact: By Phone Contact Type: Prescriptions Contactor: [facility] Contactee: Patient Shipping/Pickup: Medicare B Refill?: No Medication Name: Prograf 0.2mg Delivery Method: Ship Delivery Location: Home Signature Required: No Receive/Pickup Date: 06/29/2024 Shipping Address: [address] [place] [address] Contact Info: Specialty ([place]) [phone] [facility] [phone] [facility] [phone] [facility] [phone] Bedside Delivery ([facility]) [phone] documented in this encounter [facility] 06-17-2024 History of Present illness Narrative -Referring Provider for today's consult: Self, Self -Primary Care Provider: Zuly Bruno History of Present Illness George Styles is a 54 y.o. male who presents to the [facility] today for follow-up of [...] Left; Surgeon: Jyoti Bryant MD, PhD; Location: [facility] MAIN OR PLACEMENT NEPHROSTOMY CATHETER PERCUTANEOUS W/ IMAGE GUIDANCE 05/17/2022 Surgeon: Enzo Heart DO; Location: [facility] INTERVENTIONAL RADIOLOGY (VIR) LIVER TRANSPLANT, ORTHOTOPIC N/A 04/12/2020 Laterality: N/A; Surgeon: LU Palma; Location: [facility] SAME DAY SURGERY MAIN OR KIDNEY TRANSPLANT W/O TABLE MOUNTAIN NEPHRECTOMY N/A 04/12/2020 Laterality: N/A; Surgeon: LU Palma; Location: [facility] SAME DAY SURGERY MAIN [...] 0.2 06/13/2024 Explant Pathology Pathologic Diagnosis A. Pauma liver, orthotopic liver transplant resection (1458 gram): [...] up in 1 year. Daisha Max DO Occupational Therapy Teacher Gastroenterology, Hepatology and Nutrition [facility] Pager: [phone] Images from the original note were not included. 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 Newspaper Or Periodical Editor: Anayeli Burt Date of Liver Transplant: 04/13/2020 (Kidney), 04/13/2020 (Liver) 4 years, 2 months post Liver/Kidney Transplant Primary Disease: Hypertensive Nephrosclerosis Transplant Sewer Separation Designer: Erma Roe/ Daisha Max Primary Care physician: [...] LAB AND PHARMACY: None Specified [id number] [place] [address] - [address] [facility] [address] [facility] [address] [facility] [place] [facility] [address] [facility] [address] [facility][id number] [place] [address] [address] [facility] [address] [facility] [address] [facility] Jorge Chaudhry [address] [address] ROS and SCREEN: Chest Pain: negative Cough: [...] year: no Do you follow with a Contract Manager? yes Do you have a Primary [...] ADDRESS WITH PHYSICIAN: documented in this encounter [facility] 06-17-2024 Instructions Ashlee Fair RN - 06/17/2024 10:00 AM EDT - No medication changes from a liver standpoint - A MRI Abdomen has been ordered today. Please call central scheduling at [phone] to schedule or take paper copy to your local hospital - Return to clinic 06/16/2025 TRANSPLANT HEPATOLOGY 3, [facility] as scheduled documented in this encounter [facility] 06-17-2024 History of Present illness Narrative Images from the original note were not included. George Styles is a 54 y.o. 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 No longer follows with a local hospice chaplain. History of Present Illness: Since George was [...] and lab results. Rebeca Gutierrez MSN, RN, DIABETOLOGIST-BC, CCTN Certified Nurse Practitioner [facility] [address] [facility] [phone] documented in this encounter [facility] 06-17-2024 Instructions JEANNA Hess - 06/17/2024 9:30 AM EDT Tacrolimus - increase to 0.2 mg packet three time per day; goal 3 to 5 ng/dL ; when the itraconazole stops 09/03/2024, reduce to 0.5 mg twice daily. Once your tacrolimus level is 3-5 ng/dL, you may reduce labs to every other week. documented in this encounter [facility] 05-26-2024 History of Present illness Narrative [facility] RX OUTREACH ADVANCED: Call Information: Date and Time of Contact: 05/26/2024 4:35 PM Method of Contact: By Phone Contact Type: Prescriptions Contactor: [facility] Contactee: Patient Contact Outcome: Left message and Follow-up Contact Info: Specialty ([place]) [phone] Jakob [phone] [facility] [phone] David [phone] Bedside Delivery ([facility]) [phone] [facility] RX OUTREACH ADVANCED: Call Information: Date and Time of Contact: 05/30/2024 4:52 PM Method of Contact: By Phone Contact Type: Prescriptions Contactor: Patient Contactee: [facility] Shipping/Pickup: Medicare B Refill?: No Medication Name: Myco sod 360mg, Prograf 0.2mg Delivery Method: Ship Delivery Location: Home Signature Required: No Receive/Pickup Date: 06/06/2024 Shipping Address: [address] [place], [place] [address] Contact Info: Specialty ([place]) [phone] Jakob [phone] [facility] [phone] David [phone] Bedside Delivery ([facility]) [phone] documented in this encounter [facility] 05-13-2024 Note [facility] Subjective George Styles is a 54 [...] , Rfl: t (more content not included)... [facility] 03-24-2024 History of Present illness Narrative [facility] RX OUTREACH ADVANCED: Call Information: Date and Time of Contact: 03/24/2024 4:14 PM Method of Contact: By Phone Contact Type: Prescriptions Contactor: [facility] Contactee: Patient Contact Outcome: Left message Shipping/Pickup: Medication Name: Prograf 0.2mg pack Contact Info: Specialty ([place]) [phone] [facility] [phone] [facility] [phone] David [phone] Bedside Delivery ([facility]) [phone] [facility] RX OUTREACH ADVANCED: Call Information: Date and Time of Contact: 03/28/2024 3:58 PM Method of Contact: By Phone Contact Type: Prescriptions Contactor: [facility] Contactee: Patient Contact Outcome: Left message and Call back later Shipping/Pickup: Medication Name: Mycophenolate, prograf Contact Info: Specialty ([place]) [phone] [facility] [phone] [facility] [phone] David [phone] Bedside Delivery ([facility]) [phone] [facility] RX OUTREACH ADVANCED: Call Information: Method of Contact: By Phone Contact Type: Prescriptions Contactor: Patient Contactee: [facility] Shipping/Pickup: Medicare B Refill?: No Medication Name: Mycopheolate 360mg and Prograf Delivery Method: Ship Delivery Location: Home Signature Required: No Receive/Pickup Date: 04/04/2024 Shipping Address: [address] [place] [address] [address] Contact Info: Specialty ([place]) [phone] [facility] [phone] [facility] [phone] David [phone] Bedside Delivery ([facility]) [phone] documented in this encounter [facility] 03-24-2024 History of Present illness Narrative [facility] RX OUTREACH ADVANCED: Call Information: Date and Time of Contact: 03/24/2024 4:14 PM Method of Contact: By Phone Contact Type: Prescriptions Contactor: [facility] Contactee: Patient Contact Outcome: Left message Shipping/Pickup: Medication Name: Prograf 0.2mg pack Contact Info: Specialty ([place]) [phone] [facility] [phone] [facility] [phone] David [phone] Bedside Delivery ([facility]) [phone] [facility] RX OUTREACH ADVANCED: Call Information: Date and Time of Contact: 03/28/2024 3:58 PM Method of Contact: By Phone Contact Type: Prescriptions Contactor: [facility] Contactee: Patient Contact Outcome: Left message and Call back later Shipping/Pickup: Medication Name: Mycophenolate, prograf Contact Info: Specialty ([place]) [phone] [facility] [phone] [facility] [phone] David [phone] Bedside Delivery ([facility]) [phone] [facility] RX OUTREACH ADVANCED: Call Information: Method of Contact: By Phone Contact Type: Prescriptions Contactor: Patient Contactee: [facility] Shipping/Pickup: Medicare B Refill?: No Medication Name: Mycopheolate 360mg and Prograf Delivery Method: Ship Delivery Location: Home Signature Required: No Receive/Pickup Date: 04/04/2024 Shipping Address: [address] Contact Info: Specialty ([place]) [phone] Jakob [phone] [facility] [phone] David [phone] Bedside Delivery ([facility]) [phone] [facility] RX OUTREACH ADVANCED: Pre-Verification/Specialty Assessment/Disease [...] Within normal limits Contact Info: Specialty ([place]) [phone] Jakob [phone] [facility] [phone] David [phone] Bedside Delivery ([facility]) [phone] documented in this encounter [facility] [...] del of broth Contact Info: Specialty ([place]) [phone] [facility] [phone] [facility] [phone] David [phone] Bedside Delivery ([facility]) [phone] [facility] RX OUTREACH ADVANCED: Call Information: Date and Time of Contact: 03/02/2024 3:49 PM Method of Contact: By Phone Contact Type: Prescriptions Contactor: [facility] Contactee: Patient Contact Outcome: Left message and Follow-up Shipping/Pickup: Medication Name: Myco 360mg and Prograf 0.2mg Contact Info: Specialty ([place]) [phone] Jakob [phone] [facility] [phone] David [phone] Bedside Delivery ([facility]) [phone] [facility] RX OUTREACH ADVANCED: Call Information: Date and Time of Contact: 03/02/2024 4:08 PM Method of Contact: By Phone Contact Type: Prescriptions Contactor: [facility] Contactee: Patient Shipping/Pickup: Medicare B Refill?: No Medication Name: Myco 360 / prograf 0.2 Delivery Method: Ship Delivery Location: Home Signature Required: No Receive/Pickup Date: 03/03/2024 Shipping Address: [address] [place] [address] [address] Contact Info: Specialty ([place]) [phone] Jakob [phone] [facility] [phone] David [phone] Bedside Delivery ([facility]) [phone] documented in this encounter [facility] 02-26-2024 History of Present illness Narrative Patient [...] presents to the HF Clinic at the [facility] on 02/26/2024 for initial evaluation [...] Left; Surgeon: Jyoti Bryant MD, PhD; Location: [facility] MAIN OR PLACEMENT NEPHROSTOMY CATHETER PERCUTANEOUS W/ IMAGE GUIDANCE 05/17/2022 Surgeon: Enzo Heart DO; Location: [facility] INTERVENTIONAL RADIOLOGY (VIR) LIVER TRANSPLANT, ORTHOTOPIC N/A 04/12/2020 Laterality: N/A; Surgeon: LU Palma; Location: [facility] SAME DAY SURGERY MAIN OR KIDNEY TRANSPLANT W/O TABLE MOUNTAIN NEPHRECTOMY N/A 04/12/2020 Laterality: N/A; Surgeon: LU Palma; Location: [facility] SAME DAY SURGERY MAIN [...] qd Antithrombotic: no Statin: no ICD: NA PHYSICAL SCIENTIST: NA CV Test results: ECHOCARDIOGRAM 01/18/2024 (Final) [...] will be BP control. Candie Almaguer M.D. consulting services associate Advanced Heart Failure Program Division of Cardiovascular Medicine [facility] [email or web address] [phone] fax [phone] documented in this encounter [facility] 02-26-2024 Instructions Marsha Mckeon RN - 02/26/2024 9:30 AM EDT The following instructions were given today: Labs today Follow up with Dr. Almaguer as needed. Your after visit summary (AVS) is viewable in [facility] My Chart. Call RN if you have cardiac questions/concerns M-F 8 to 4:30 ; office # [phone], option 6, then option 2. Guidelines for home management: 1. Continue to monitor weight first thing each morning. 2. Report to the CHF CLINIC ([phone]) any significant weight change. Remember that weight [...] we received the results. Office fax # [phone]. No news does not necessarily mean that your tests are normal, it could mean we did not get the results. For questions/updates: please provide your name with spelling, date of and question or update All calls are prioritized and responses researched, if possible, prior to calls being returned. Call Scheduling for any appointment/procedure verification or changes [phone], option 7 or [facility] Heart Schedulers at [phone], option 1. documented in this encounter [facility] 01-23-2024 Nurse Note Jakob wrap [...] to transport home on home oxygen supply. [facility] 01-23-2024 Miscellaneous Notes Jakob wrap [...] verbalization of pain descriptors George Tray Styles ([id number]) PRE OPERATIVE DIAGNOSIS High output congestive heart failure [I50.83] POST OPERATIVE DIAGNOSIS Post-Op Diagnosis Codes: * High output congestive heart failure [I50.83] PROCEDURE PERFORMED Procedure(s) (LRB): LIGATION ANGIOACCESS AVF (Left) Resection of large aneurysmic vein PRIMARY CLOSURE Yes INTRAOPERATIVE FINDINGS No significant abnormalities SURGEON Surgeons and Role: * Jyoti Bryant MD, PhD - Primary ANESTHESIOLOGIST Anesthesiologist: Celena Tiwari MD; Kehinde Gutierrez MD FASHION JOURNALIST: David Jasso APRN-FASHION JOURNALIST Practice Architect Assisting: Mini Khan MD SURGICAL STAFF Manager Payment: Zoila Lawrence RN Relief Manager Payment: Marimar Saravia RN Relief Scrub: Briseyda Self [...] breathing easily. Report received from surgical services tech and report received from anesthesiology. Pt [...] Axillary block. SURGEON(S): Jyoti Bryant MD, PHD FIRER KILN: Mynor Fall MD ESTIMATED BLOOD LOSS: Minimal. [...] Jyoti Bryant MD, PHD ATTENDING AR/MedFlorencio JOB: [id number] DOC: [id number] Patient has been asleep this shift. He [...] overnight coverage, Jasper Gastelum MD, via pager #[phone] Pt- George Styles. Sarah 1082. TM1. Was wondering if he can have his Melatonin order increased to 6mg. Per pt, he usually takes 8mg at home. -SAMI Duffy #[phone] Tati Charles RN Internal Medicine Daily Progress Note Patient: George Styles, 1970, [id number] Physician: Arelis Mera MD, PGY3, Pager #[phone], TM1 service Assessment/Plan: George Styles is a [...] home amlodipine 5mg CAD: non-obstructive CAD on [facility] 2018. - continue home aspirin 81mg [...] MD Mr. Styles was admitted to [address] [place] [address]. On admission to [facility], from outside facility a dual RN initial assessment of skin condition was performed by Izzy Gutierrez, RN and Leroy Singleton, SAMI. Skin Assessment: Skin within defined limits:Yes Jose Score: 20 Wound Vision Data Warehouse Specialist images obtained: No LDA Added: No [...] station when available. documented in this encounter [facility] 01-23-2024 Nurse Note Home Oxygen [...] at 4L of oxygen is also required.) [facility] 01-23-2024 History of Present illness [...] mg Oral Daily Kelvin Pacheco MD, JOSHBS finance professor Transplant nephrology Surgery Post-Op Check Note [...] monitor Leonel Harris DO General Surgery Pager [phone] CM went to bedside to talk with patient. Patient states he has home oxygen through [employer]. He uses 2.5 LNC around the clock. Patient states his brother will bring a tank for discharge. Anticipate patient will discharge tomorrow AM. Brother updated. Girish Oro RN, BSN Clinical Tire Finisher Please note that I am a float case resolution specialist and may not cover the same service every day. Please call the main Case Management office at [phone] for up-to-date coverage. Verified patients identity using [...] Daily Progress Note Patient: George Styles, 1970, [id number] Physician: Yury Ozuna MD, PGY1, Pager #[phone], VO5 service Assessment/Plan: George Styles is a 53 [...] by transplant surgery on 01/22 (NPO at tx, updated type & screen) S/p Liver-Kidney Transplant [...] home amlodipine 5mg CAD: non-obstructive CAD on [facility] 2018. - continue home aspirin 81mg [...] the Nutrition plan outlined in the Insurance Investigator s note. DVT prophylaxis with lovenox Diet [...] in resident note. Kelvin Pacheco MD, LU finance professor Transplant nephrology Patient seen and examined [...] Oral BID AC Kelvin Pacheco MD, MBBS finance professor Transplant nephrology Images from the original note were not included. Internal Medicine Daily Progress Note Patient: George Styles, 1970, [id number] Physician: Yury Ozuna MD, PGY1, Pager #[phone], TM1 service Assessment/Plan: George Styles is a [...] the Nutrition plan outlined in the Insurance Investigator s note. DVT prophylaxis with lovenox Diet [...] Provider: Zuly Bruno NP [facility] Other Comments: Patient reported his Last Home Dose of mycophenolate and tacrolimus was on 01/15/24 at 0700. Medications that need removed from Outside Medication Reconciliation list: Please remove all medications. Please feel free to contact me with any further questions. Name: Heidy Chatman Phone #: [phone] Date/Time: 01/19/2024 12:08 PM Time Spent: 15 minutes Associated attestation - Fidelina Alarcon RPH - 01/19/2024 12:41 PM EST Department of Pharmacy Admission Medication Reconciliation Note Patient: George Styles Room/Bed: 1082/A I have reviewed the home medication list with the Director Of Nursing. The home medication list status is: complete. All changes to the home medication list have been updated in [facility]. Updated MARKET INTELLIGENCE CONSULTANT Med List: Prior to Admission Medications Prescriptions [...] with any further questions. Name: Fidelina Alarcon, [facility] Phone #: [phone] Date/Time: 01/19/2024 12:41 PM Internal Medicine Daily Progress Note Patient: George Styles, 1970, [id number] Physician: Yury Ozuna MD, PGY1, Pager #[phone], RP3 service Assessment/Plan: Acute Hypoxic Respiratory Insufficiency GARCIA, [...] home amlodipine 5mg CAD: non-obstructive CAD on [facility] 2018. - continue home aspirin 81mg [...] the Nutrition plan outlined in the Insurance Investigator s note. DVT prophylaxis with lovenox Diet [...] mg Oral Daily Kelvin Pacheco MD, MBBS finance professor Transplant nephrology Internal Medicine Daily Progress Note Patient: George Styles, 1970, [id number] Physician: Yury Ozuna MD, PGY1, Pager #[phone], TM1 service Assessment/Plan: Updates: - continued diuresis [...] home amlodipine 5mg CAD: non-obstructive CAD on [facility] 2018. - continue home aspirin 81mg [...] the Nutrition plan outlined in the Insurance Investigator s note. DVT prophylaxis with lovenox Diet [...] in resident note. Kelvin Pacheco MD, MBBS finance professor Transplant nephrology Pt known to live truck technician from previous admissions. Provided emotional and spiritual support. Patient shared about: family support, medical course Technical Services Assistant provided: - Supportive presence - Active listening - Validation of feelings/emotions Patient encouraged to request a live truck technician as needed. Chaplains are available in-house 24 hours a day and 7 days a week. For urgent matters in [facility], please page [phone]. If the request is not urgent, please enter a consult. Consults are responded to within 24 hours. Senior Staff Technical Services Assistantwilmer Singh Mdiv, [facility] [place] [phone] [email or web address] On-call TYLOR: call center dispatcher David: 22/06 Pager ,[facility], and [place] 1500 David Pager [phone] 01/18/24 1342 Clinical Encounter Type Visited With Patient Visit Type Introduction Pastoral Time Spent 15 min Referral Other (See Comment) (rounding) Spiritual Assessment Emotional Observation Coping well;Anxiety Hope Observation Specific hope focus Support Observation By Family Interventions Provided Active listening;Supportive presence Facilitated Verbalization of feelings;Identifying support system;Identifying Sources of spiritual well-being Explored Expectations;Treatment decisions Crane Hoist Or Lift Operator Education Crane Hoist Or Lift Operator Service Available Yes Educated Patient Outcomes [...] interaction. Name: Fidelina Alarcon RPH Phone #: [phone] Date/Time: 01/18/2024 9:56 AM Discharge Planning Patient [...] Yes Name and Contact information: Gian Styles ([phone]) Would you like to add additional adult [...] Team?: Yes Patient Care Team: Zuly Bruno COMMUNITY ENGAGEMENT SPECIALIST as PCP - General Evan White, DO as Infectious Disease (Infectious Disease) Dr Perrin transplant Dr [place]-Infectious disease Environment/Caregivers Is the patient from a facility or intermediate?: No Patient lives with: Alone Living Environment: [...] oxygen?: Yes Oxygen Provider and Contact : [employer] Liter-Flow?: 20/01- Order for oxygen use?: unknown [...] on Anticoagulation? : No [id number] [place] [address] [address] [place] [place] [address] Manager Reliability Does the patient or traveling sales representative express financial concerns? : No Employed?: Disabled Coping/Stress Concerns about patient s coping and stress?: No Concerns about patient s caregiver s coping and stress?: No Values and Beliefs Cultural or hoahaoism practices that may impact discharge planning and/or [...] Plan 1. Identified self and role as Tire Finisher. 2. Confirmed and updated demographics and treatment team. 3. Tire Finisher will continue to follow with medical team for any other additional discharge needs. Kasandra DON RN [facility] [phone] *Please note I am float CM and work Thursday and Thursday every other week. Please call [phone] for assist in my absence. Internal Medicine Daily Progress Note Patient: George Styles, 1970, [id number] Physician: Yury Ozuna MD, PGY1, Pager #[phone], FY9 service Assessment/Plan: Updates: - continue diuresis with [...] home amlodipine 5mg CAD: non-obstructive CAD on [facility] 2018. - continue home aspirin 81mg [...] Infectious Disease recommendations. Finally, ordered 2D echo. Keivn Prince MD, MADISONN Occupational Therapy Teacher of Clinical Medicine [facility] documented in this encounter [facility] 01-23-2024 Plan of care note [...] Symptoms (Acute Pain): verbalization of pain descriptors [facility] 01-22-2024 Hospital Discharge instructions Arelis [...] your doctor for further instructions. Please call [phone], Option 1 or [phone] to schedule your appointment with the Heart Failure Clinic. Arelis Mera MD - 01/22/2024 3:08 PM EST You can change your dressing 48 hours from the procedure The following attachments cannot be sent through Care Everywhere.Heart Failure: Avoiding Triggers (Jordanian)Heart Failure: Limiting Sodium (Jordanian)Pain and Pain Control ([facility]) (Jordanian)documented in this encounter [facility] 01-22-2024 Surgery Postoperative evaluation and management note George Styles ([id number]) PRE OPERATIVE DIAGNOSIS High output congestive heart failure [I50.83] POST OPERATIVE DIAGNOSIS Post-Op Diagnosis Codes: * High output congestive heart failure [I50.83] PROCEDURE PERFORMED Procedure(s) (LRB): LIGATION ANGIOACCESS AVF (Left) Resection of large aneurysmic vein PRIMARY CLOSURE Yes INTRAOPERATIVE FINDINGS No significant abnormalities SURGEON Surgeons and Role: * Jyoti Bryant MD, PhD - Primary ANESTHESIOLOGIST Anesthesiologist: Celena Tiwari MD; Kehinde Gutierrez MD FASHION JOURNALIST: David Jasso APRN-FASHION JOURNALIST Practice Architect Assisting: Mini Khan MD SURGICAL STAFF Manager Payment: Zoila Lawrence RN Relief Manager Payment: Marimar Saravia RN Relief Scrub: Briseyda Self Scrub Person: Cinda Mai RN Resident Assisting: Leonel Harris DO Fellow: Miki Mcgowan MD, MBBS COMPLICATIONS None ESTIMATED BLOOD LOSS Minimal SPECIMENS No specimen sent * No specimens in log * Jyoti Bryant MD, PhD January 22, 2024 1:34 PM [facility] Work Phone: 01-22-2024 Nurse Note Arrived to PACU assisted by anesthesiology. Connected to monitors. Turned side to side, OR linens removed, repositioned. Airway patent, patient breathing easily. Report received from surgical services tech and report received from anesthesiology. Pt arrived awake. VSS. Sats slightly low. Pulm rehab used. Sats currently 3lpm @ 93%. Pt states he uses CPAP nocturnally. A&Ox4. Nerve block left arm, elevated. [facility] 01-22-2024 Surgery Postoperative evaluation and management [...] Axillary block. SURGEON(S): Jyoti Bryant MD, PHD FIRER KILN: Mynor Fall MD ESTIMATED BLOOD LOSS: Minimal. [...] Jyoti Bryant MD, PHD ATTENDING SHANNON/Constanza JOB: [id number] DOC: [id number] [facility] 01-22-2024 Plan of care note Patient [...] 1939 Plan Of Care Reviewed With: patient [facility] 01-20-2024 Consult note Associated Order (s): IP CONSULT TO SURGERY - TRANSPLANT (RENAL) Images from the original note were not included. TRANSPLANT SURGERY CONSULT NOTE: Consult: 01/20/2024, 4:03 PM Storeperson: Starla Morris MD Reason for Consult: Requesting Dr Carson Bryant for AVF revision/closure given new onset high output heart failure George Styles is a 53 y.o. male CURRENT HOSPITALIZATION LOS: Admit Date: [facility]16/[facility] LOS: 4 days George Styles [...] Labs-CBC: WBC/Hgb/Hct/Plts: 3.79/12.5/38.9/166 (01/20 611) Labs-Chem 7([facility]): Bun/Creat/Cl/CO2/Glucose: 15/1.12/105/28/88 (01/20 611) Na/K+/Phos/Mg/Ca: 141/3.8/--/1.6/-- [...] seen and staffed with Dr. Mcgowan fellow continuous churn buttermaker Thank you, Starla Morris MD Associated attestation - Jyoti Bryant MD, PhD - 01/22/2024 10:54 AM EST Beata Bryant MD, PhD, have independently seen and examined the patient, reviewed the labs, discussed the patient with the fellow/resident and agree with the note. [facility] Work Phone: 01-20-2024 Consult note Associated Order (s): IP CONSULT TO SURGERY - TRANSPLANT (RENAL) Images from the original note were not included. TRANSPLANT SURGERY CONSULT NOTE: Consult: 01/20/2024, 4:03 PM Storeperson: Starla Morris MD Reason for Consult: Requesting Dr Carson Bryant for AVF revision/closure given new onset high output heart failure George Styles is a 53 y.o. male CURRENT HOSPITALIZATION LOS: Admit Date: [facility]16/[facility] LOS: 4 days George Styles [...] 04/12/2020 Laterality: N/A; Surgeon: LU Palma; Location: [facility] SAME DAY SURGERY MAIN OR KIDNEY TRANSPLANT W/O TABLE MOUNTAIN NEPHRECTOMY N/A 04/12/2020 Laterality: N/A; Surgeon: LU Palma; Location: [facility] SAME DAY SURGERY MAIN [...] 6 mg 6 mg Oral QHS PRN Jsaper Groves MD 6 mg at 01/19/242043 Mycophenolate [...] Labs-CBC: WBC/Hgb/Hct/Plts: 3.79/12.5/38.9/166 (01/20 611) Labs-Chem 7([facility]): Bun/Creat/Cl/CO2/Glucose: 15/1.12/105/28/88 (01/20 611) Na/K+/Phos/Mg/Ca: 141/3.8/--/1.6/-- [...] seen and staffed with Dr. Mcgowan fellow continuous churn buttermaker Thank you, Starla Morris MD Associated attestation - Jyoti Bryant MD, PhD - 01/22/2024 10:54 AM EST I. Jyoti Bryant MD, PhD, have independently seen and examined the patient, reviewed the labs, discussed the patient with the fellow/resident and agree with the note. Associated Order(s): IP CONSULT TO HEPATOBILIARY N [facility] Main Hepatology Consult WebExchange --> IM Consult Serv [facility] --> [facility] Main Hepatology consult service [...] GUIDANCE 05/17/2022 Surgeon: Enzo Heart DO; Location: [facility] INTERVENTIONAL RADIOLOGY (VIR) LIVER TRANSPLANT, ORTHOTOPIC N/A 04/12/2020 Laterality: N/A; Surgeon: LU Palma; Location: [facility] SAME DAY SURGERY MAIN OR KIDNEY TRANSPLANT W/O TABLE MOUNTAIN NEPHRECTOMY N/A 04/12/2020 Laterality: N/A; Surgeon: LU Palma; Location: [facility] SAME DAY SURGERY MAIN [...] (order for outpatient) Please SecureChat or Call ([phone]) for any questions. Await attending attestation for final recommendations. Hank Noel MD Division of Gastroenterology, Hepatology, and Nutrition Clinical Fellow, PGY-5 Pager: [phone] For urgent/stat calls or consults 5pm to 7am, please page the on-call GI fellow on QGenda. [facility]--> Internal Medicine--> Gastroenterology, Hepatology, & Nutrition--> 1st Call Janae Hatfield For urgent/stat calls or consults 7am to 5pm during the weekend, please page the on-call GI fellow on QGenda. [facility]--> Internal Medicine--> Gastroenterology, Hepatology, & Nutrition--> All Hep & East Wknd Cons Fel Day For follow up questions regarding this patient 7am to 5pm during the weekday, contact the Hepatology consults fellow or CARLOS A on QGenda. [facility]--> Internal Medicine--> Gastroenterology, Hepatology, & Nutrition--> [...] MD, MSc documented in this encounter [facility] 01-19-2024 Nurse Note 01/19/24 0900 Vitals ICU/PCU [...] rest, 95-96% when talking/moving. Paulette Cordon RN [facility] 01-19-2024 Nurse Note Paged overnight coverage, Jasper Gastelum MD, via pager #[phone] Pt- Mark. Sarah Styles 1082. TM1. Was wondering if he can have his Melatonin order increased to 6mg. Per pt, he usually takes 8mg at home. -SAMI Duffy #[phone] Tati Charles RN [facility] 01-18-2024 Consult note Associated Order (s): [...] 04/12/2020 Laterality: N/A; Surgeon: LU Palma; Location: [facility] SAME DAY SURGERY MAIN [...] (order for outpatient) Please SecureChat or Call ([phone]) for any questions. Await attending attestation for final recommendations. Hank Noel MD Division of Gastroenterology, Hepatology, and Nutrition Clinical Fellow, PGY-5 Pager: [phone] For urgent/stat calls or consults 5pm to 7am, please page the on-call GI fellow on [employer]. [facility]--> Internal Medicine--> Gastroenterology, Hepatology, & Nutrition--> 1st Call Fel Alysia For urgent/stat calls or consults 7am to 5pm during the weekend, please page the on-call GI fellow on QGenda. [facility]--> Internal Medicine--> Gastroenterology, Hepatology, & Nutrition--> All Hep & East Wknd Cons Fel Day For follow up questions regarding this patient 7am to 5pm during the weekday, contact the Hepatology consults fellow or CARLOS A on [employer]. [facility]--> Internal Medicine--> Gastroenterology, Hepatology, & Nutrition--> [...] (order for outpatient) Michael Estrada MD, MSc [facility] Work Phone: 01-16-2024 Plan of care note Internal Medicine Daily Progress Note Patient: George Styles, 1970, [id number] Physician: Arelis Mera MD, PGY3, Pager #[phone], LR5 service Assessment/Plan: George Styles is a 53 [...] home amlodipine 5mg CAD: non-obstructive CAD on [facility] 2018. - continue home aspirin 81mg [...] MD, on rounds. Signed, Arelis Mera MD [facility] 01-16-2024 Nurse Note Mr. Styles was admitted to [address] [place] [address]. On admission to [facility], from outside facility a dual RN initial assessment of skin condition was performed by Izzy Gutierrez RN and Leroy Singleton RN. Skin Assessment: Skin within defined limits:Yes Jose Score: 20 Wound Vision Data Warehouse Specialist images obtained: No LDA Added: No [...] room closest to nurses station when available. [facility] 01-16-2024 History and physical note Images from the original note were not included. Internal Medicine Admission History & Physical Patient: George Styles, 1970, [id number] Physician: Timothy Joseph MD, PGY1, Pager #[phone], TM 1 service Date of face to [...] 04/12/2020 Laterality: N/A; Surgeon: LU Palma; Location: [facility] SAME DAY SURGERY MAIN [...] itraconazole Fax results to: Dr. White - [phone] Transplant Neph - [phone] Gabapentin 400 MG capsule Sig: Take 1 [...] Skin: No jaundice or rash Neuro: risk consultant 3-7, 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 Strength grossly [...] home amlodipine 5mg CAD: non-obstructive CAD on [facility] 2018. - continue home aspirin 81mg daily Gout: continue home allopurinol 200mg daily BPH: continue home flomax 0.4mg daily Complexity. Obesity Body mass index is 32.8 kg/m . - Follow with PCP for dietary and lifestyle modifications. Any conditions listed below are present on admission unless otherwise specified. . DVT prophylaxis with lovenox Disposition: admitted to [facility] Code status is Full [...] Pierson, Luisa Steven, Renee Rivera, Daisha Max Newspaper Or Periodical Editor: José Miguel Garnica All Txt: 04/13/2020 (Kidney), [...] results found for: CYCLOSPORIN , CYCLOSPORIN2 , [id number] , CYCLORAND No results found for: SIROLIMUS [...] request in chart. Kevin Prince MD Pager [phone] [facility] 01-16-2024 History and physical note Images from the original note were not included. Internal Medicine Admission History & Physical Patient: George Styles, 1970, [id number] Physician: Timothy Joseph MD, PGY1, Pager #[phone], TM 1 service Date of face to [...] itraconazole Fax results to: Dr. White - [phone] Transplant Neph - [phone] Gabapentin 400 MG capsule Sig: Take 1 [...] Skin: No jaundice or rash Neuro: risk consultant 3-7, 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 Strength grossly [...] home amlodipine 5mg CAD: non-obstructive CAD on [facility] 2018. - continue home aspirin 81mg daily Gout: continue home allopurinol 200mg daily BPH: continue home flomax 0.4mg daily Complexity. Obesity Body mass index is 32.8 kg/m . - Follow with PCP for dietary and lifestyle modifications. Any conditions listed below are present on admission unless otherwise specified. . DVT prophylaxis with lovenox Disposition: admitted to [facility] Code status is Full [...] Pierson, Luisa Steven, Renee Rivera, Daisha Max Newspaper Or Periodical Editor: José Miguel Garnica All Txt: 04/13/2020 (Kidney), [...] results found for: CYCLOSPORIN , CYCLOSPORIN2 , [id number] , CYCLORAND No results found for: SIROLIMUS [...] request in chart. Kevin Prince MD Pager [phone] documented in this encounter [facility] 01-12-2024 History of Present illness [...] Name: Prograf 0.2 MG Contact Info: Specialty ([place]) [phone] [facility] [phone] [facility] [facility] [phone] David [phone] Bedside Delivery ([facility]) [phone] [facility] RX OUTREACH ADVANCED: Call Information: Date and Time of Contact: 01/25/2024 10:23 AM Method of Contact: By Phone Contact Type: Prescriptions Contactor: [facility] Contactee: Patient Contact Outcome: Left message (prograf myco) Contact Info: Specialty ([place]) [phone] [facility] [phone] [facility] [phone] David [phone] Bedside Delivery ([facility]) [phone] documented in this encounter [facility] 01-12-2024 History of Present illness [...] Prograf 0.2 MG Contact Info: Specialty ([place]) [phone] [facility] [phone] [facility] [phone] David [phone] Bedside Delivery ([facility]) [phone] [facility] RX OUTREACH ADVANCED: Call Information: Date and Time of Contact: 01/25/2024 10:23 AM Method of Contact: By Phone Contact Type: Prescriptions Contactor: [facility] Contactee: Patient Contact Outcome: Left message (prograf myco) Contact Info: Specialty ([place]) [phone] [facility] [phone] [facility] [phone] David [phone] Bedside Delivery ([facility]) [phone] [facility] RX OUTREACH ADVANCED: Call Information: Date and Time of Contact: 01/27/2024 10:19 AM Method of Contact: By Phone Contact Type: Prescriptions Contactor: [facility] Contactee: Patient Contact Outcome: Left message (myco prograf) Contact Info: Specialty ([place]) [phone] [facility] [phone] [facility] [phone] David [phone] Bedside Delivery ([facility]) [phone] documented in this encounter [facility] 01-12-2024 History of Present illness [...] Prograf 0.2 MG Contact Info: Specialty ([place]) [phone] [facility] [phone] [facility] [phone] David [phone] Bedside Delivery ([facility]) [phone] [facility] OUTREACH ADVANCED: Call Information: Date and Time of Contact: 01/25/2024 10:23 AM Method of Contact: By Phone Contact Type: Prescriptions Contactor: [facility] Contactee: Patient Contact Outcome: Left message (prograf myco) Contact Info: Specialty ([place]) [phone] [facility] [phone] [facility] [phone] David [phone] Bedside Delivery ([facility]) [phone] [facility] OUTREACH ADVANCED: Call Information: Date and Time of Contact: 01/27/2024 10:19 AM Method of Contact: By Phone Contact Type: Prescriptions Contactor: [facility] Contactee: Patient Contact Outcome: Left message (myco prograf) Contact Info: Specialty ([place]) [phone] [facility] [phone] [facility] [phone] David [phone] Bedside Delivery ([facility]) [phone] [facility] OUTREACH ADVANCED: Call Information: Date and Time of Contact: 02/01/2024 3:22 PM Contact Type: Prescriptions Contactor: [facility] Contactee: Patient Contact Outcome: Left message Shipping/Pickup: Medication Name: Mycophenolate 360mg and Prograf 0.2mg Pack Contact Info: Specialty ([place]) [phone] 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) documented in this encounter [facility] 10-06-2023 History of Present illness [...] Prograf 0.2 MG Contact Info: Specialty ([place]) [phone] Jakob [phone] [facility] [phone] David [phone] Bedside Delivery ([facility]) [phone] [facility] OUTREACH ADVANCED: Call Information: Date and Time of Contact: 10/23/2023 2:00 PM Method of Contact: By Phone Contact Type: Prescriptions Contactor: [facility] Contactee: Patient Contact Outcome: Left message and Call back later Shipping/Pickup: Medication Name: Mycophenolate 360mg and Prograf 0.2mg Contact Info: Specialty ([place]) [phone] [facility] [phone] [facility] [phone] David [phone] Bedside Delivery ([facility]) [phone] documented in this encounter [facility] 10-13-2023 Miscellaneous Notes Pt discharged home with [...] the oxygen during the night. 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 This RN [...] Patient seen ambulating in the velazquez with SPEECH THERAPY TEACHER. Patient was mildly short of breath on [...] & HR 114. Messaged Mainor Loomis, via Seelio secure chat, Temp 100.8. His tylenol order [...] short period of time. 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 Episode of [...] Critical Care Medicine Message Mainor Loomis, via Seelio secure chat, Good evening, just an FYI, [...] short period of time. 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 This morning, [...] [address] Loera here also (dry talc racker) Dr. Diaz aware of pt's increased oxygen [...] Medicine-Pediatrics, PGY-2 Mr. Styles was admitted to [address] [place] [address]. On admission to [facility], from home a [...] when available. documented in this encounter [facility] 09-11-2023 History of Present illness Narrative Provided follow-up emotional and spiritual support. Patient shared about rosemary of discharge and looking forward to seeing family Technical Services Assistant provided: - Supportive presence - Active listening - Validation of feelings/emotions Patient encouraged to request a live truck technician as needed. Chaplains are available in-house 24 hours a day and 7 days a week. For urgent matters in [facility], please page [phone]. If the request is not urgent, please enter a consult. Consults are responded to within 24 hours. Senior Staff Chaplain Angie Singh Mdiv, [facility] [place] [phone] [email or web address] 22/06 On-call [place]: [phone] 22/06 Pager ,[facility], and Brock Lewis David Pager [phone] 09/11/23 1430 Clinical Encounter Type Visited With Patient Visit Type Follow-up Pastoral Time Spent 15 min Referral Other (See Comment) (rounding) Spiritual Assessment Spiritual Observation Spirituality helpful Emotional Observation Coping well Hope Observation Specific hope focus Support Observation By Family Interventions Provided Active listening;Supportive presence Facilitated Verbalization of feelings Explored Expectations Crane Hoist Or Lift Operator Education Crane Hoist Or Lift Operator Service Available Yes Educated Patient Plan of Care Continue Visiting PRN Images from the original note were not included. [facility] Note: Non-Verbal Med Rec [facility] received the following discharge prescription(s): Total cost is $0. I have reviewed the Discharge Rx Reconciliation Report. The discharge prescription(s) will be delivered to the patient on 09/11/2023. Dimitrios Gurrola RPh,PharmD Specialty ([place]) [phone] [facility] [phone] [facility] Bedside Delivery [phone] [facility] [phone] [facility] Bedside Delivery [phone] David [phone] [facility] Bedside Delivery [phone] [place] [phone] [place] [phone] Internal Medicine Daily Progress Note Patient: George Styles, 1970, [id number] Physician: Evan Kelly MD, PGY-1, TM1 service Subjective/Interval History: Patient continues to require oxygen overnight for desaturations. With insurance limitations, only accepting agency to provide home oxygen backed out. After calling them to discuss, Lynn stated she would be willing to have patient drive to their facility to fruit picker machine operator supplies, however they close [...] losartan 50mg BID CAD: non-obstructive CAD on [facility] 2018. - continue home aspirin 81mg [...] 5.05 (H) 11/19/2018 Kevin Prince MD, SERA Occupational Therapy Teacher of Clinical Medicine [facility] Images from the original note were not included. Final Discharge Planning and Transportation Final Discharge Planning Discharge Disposition: Home Services at Discharge: Outpatient clinical services (ie: lab draws, transfusions, injectables) (Home Oxygen by [employer]) Selected Continued Care - Admitted Since 08/28/2023 Durable Medical Equipment Coordination complete. Service Provider Selected Services Address Phone Fax Patient Preferred [employer] Durable Medical Equipment [address] [facility] [address] Internal Comment last updated by Lora Lawrence RN 09/10/2023 1334 Correct contact information: [address] [place] [address] [place] [address] sugarcane research technician- you do not need to call at discharge, I already notified the company. Addendum 2813 [employer] notified this CM they are out of patient's insurance area and will not be able to service this patient at time of discharge. Provider notified. Addendum [phone] Dr Kelly called [employer] spoke to Lynn and she said they are willing to accept patient if the patient would drive to the [employer] office and fruit picker machine operator the supplies. 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 Medication additions/changes: Lipitor on hold with itraconazole Items for clinic follow up: - Lipid follow up with atorvastatin on hold - Itraconazole level and, if needed, a dose adjustment Name: Matt Kramer RPh,PharmD Phone: [phone] Date/Time: 09/10/2023 11:33 AM This CM sent referral via [employer] for O2 concentrator to 4 agencies Start date today Timer set for 1330 [employer] [facility] [employer] Addendum 1332 One accepting company reserved in [employer] [address] [place] [address] Lora Colón RN, MSN, CCM, CMCN Clinical Tire Finisher- [facility] Transplant #[phone] NUTRITION FOLLOW-UP Nutrition Plan of Care: 1. Continue current diet order. 2. No oral supplements warranted at this time. 3. Monitor for significant weight changes. Monitor GI, skin integrity. 4. Monitor and encourage po intakes with goal of average po being 75-100%. 5. injection maintenance technician to follow. ___ Met with patient [...] time. Will continue to monitor. RHIANNON [place] Pager:[phone] Transplant Infectious Disease (Team 3) Progress Note [...] sign off. Please Epic message or page [phone] with questions. Evan White DO Transplant Infectious Diseases Internal Medicine Daily Progress Note Patient: George Styles, 1970, [id number] Physician: Evan Kelly MD, PGY-1, TM1 service [...] losartan 50mg BID CAD: non-obstructive CAD on [facility] 2018. - continue home aspirin 81mg [...] to follow. Please Epic message or page [phone] with questions. Evan White DO Transplant Infectious Diseases Internal Medicine Daily Progress Note Patient: George Styles, 1970, [id number] Physician: Laurel Serrano MD, PhD, PGY-3, TM1 [...] losartan 50mg BID CAD: non-obstructive CAD on [facility] 2019. - continue home aspirin 81mg daily, holding atorvastatin 20mg daily Gout: continue home allopurinol 200mg daily BPH: continue home flomax 0.4mg daily DVT PPX: SQH Code Status: Full Code Disposition: Pending clinical course. Anticipate eventual discharge home. Discussed with team and attending, Kevin Prince MD, on rounds. Signed, Laurel Serrano MD, PhD Internal Medicine Daily Progress Note Patient: George Styles, 1970, [id number] Physician: Evan Kelly MD, PGY-1, TM1 service [...] losartan 50mg BID CAD: non-obstructive CAD on [facility] 2018. - continue home aspirin 81mg [...] 5.05 (H) 11/19/2018 Kevin Prince MD, SERA Occupational Therapy Teacher of Clinical Medicine [facility] Transplant Infectious Disease [...] to follow. Please Epic message or page [phone] with questions. Ann Marie Haskins MD PGY-4, [...] he continues to improve. Please message via Seelio secure chat or page with any questions or concerns. Evan White DO Occupational Therapy Teacher Division of Infectious Disease Transplant Infectious [...] to follow. Please Epic message or page [phone] with questions. Evan White DO Transplant Infectious Diseases Images from the original note were not included. Pulmonary/Critical Care Medicine Daily Progress Note Reason for Consultation: bronch for infectious workup Requesting Physician: Dr. Prince CURRENT HOSPITALIZATION: Admit Date: 08/28/2023 [facility] LOS: 9 days Impression 1. [...] and interpreted reviewed the radiographic data [facility] Internal Medicine Daily Progress Note Patient: George Styles, 1970, [id number] Physician: Evan Kelly MD, PGY-1, TM1 service [...] losartan 50mg BID CAD: non-obstructive CAD on [facility] 2019. - continue home aspirin 81mg [...] 5.05 (H) 11/19/2018 Kevin Prince MD, MADISONN Occupational Therapy Teacher of Clinical Medicine [facility] Images from the original note were not included. Pulmonary/Critical Care Medicine Daily Progress Note Reason for Consultation: bronch for infectious workup Requesting Physician: Dr. Prince CURRENT HOSPITALIZATION: Admit Date: [facility]/20[facility] LOS: 8 days Impression 1. Acute [...] and interpreted reviewed the radiographic data in Seelio/Unata/StyleChat by [employer]. Acute Occupational Therapy Evaluation Prior to Admission [...] Assessment: Transfer Assessment: Sit to Stand Transfer [place] Level: Sit->Stand: independent Skilled Intervention/Details: Sit->Stand: x1 from EOB, x1 from toilet Stand to Sit Transfer [place] Level: Stand->Sit: independent Skilled Intervention/Details: Stand->Sit: x1 to toilet, x1 to EOB Functional Mobility: Functional Mobility [place] Level: Functional Mobility/Gait: independent Ambulation Distance (Feet): [...] Intact Mobility Assessment: Supine to Sit Mobility [place] Level: Supine->Sit: [facility] Bed Features/Set-up: Supine->Sit: Head of bed elevated Sit to Supine Mobility [place] Level: Sit->Supine: not tested Balance: Sitting Balance [...] environment. Transfer Assessment: Sit to Stand Transfer [place] Level: Sit->Stand: independent Skilled Intervention/Details: Sit->Stand: From EOB x 2 without difficulty. Stand to Sit Transfer [place] Level: Stand->Sit: independent Assistive Device: Stand->Sit: armed chair Skilled Rationale: Verbal cues, Positioning Gait/Functional Mobility: Gait Assessment [place] Level: Gait: stand-by assist Assistive Device: Gait: rollator Ambulation Distance (Feet): 400 Gait Deviations Identified: decreased grace, decreased gait speed Gait Skilled Rationale: verbal, upright posture, increase step length, increase foot clearance Skilled Intervention/Details - Gait: Reasonable foot clearnce without loss of balance but endorsing dyspnea as 6-7/10. Stairs: Stairs Assessment [place] Level: Stair Negotiation: not tested Outcome Score(s): [...] Daily Progress Note Patient: George Styles, 1970, [id number] Physician: Evan Kelly MD, PGY-1, TM1 service [...] losartan 50mg BID CAD: non-obstructive CAD on [facility] 2018. - continue home aspirin 81mg [...] 5.05 (H) 11/19/2018 Kevin Prince MD, SERA Occupational Therapy Teacher of Clinical Medicine [facility] Transplant Infectious Disease [...] to follow. Please Epic message or page [phone] with questions. Evan Wihte DO Transplant Infectious Diseases Images from the original note were not included. Internal Medicine Daily Progress Note Patient: George Styles, 1970, [id number] Physician: Evan Kelly MD, PGY-1, TM1 service [...] losartan 50mg BID CAD: non-obstructive CAD on [facility] 2018. - continue home aspirin 81mg [...] P 450 system Kevin Prince MD, SERA Occupational Therapy Teacher of Clinical Medicine [facility] ERT Note: ERT [...] MD, PhD Internal Medicine and Pediatrics PGY-3 [facility] Brief plan of care update: Called to [...] MD, PhD Internal Medicine and Pediatrics PGY-3 [facility] Transplant Infectious Disease (Team 3) Progress Note [...] to follow. Please Epic message or page [phone] with questions. Evan White DO Transplant Infectious Diseases Internal Medicine Daily Progress Note Patient: George Styles, 1970, [id number] Physician: Evan Kelly MD, PGY-1, TM1 service [...] 2/2 renal function CAD: non-obstructive CAD on [facility] 2018. - continue home aspirin 81mg [...] 5.05 (H) 11/19/2018 Kevin Prince MD, SERA Occupational Therapy Teacher of Clinical Medicine [facility] Internal Medicine Daily Progress Note Patient: George Styles, 1970, [id number] Physician: Evan Kelly MD, PGY-1, TM1 service [...] 2/2 renal function CAD: non-obstructive CAD on [facility] 2018. - continue home aspirin 81mg [...] 5.05 (H) 11/19/2018 Kevin Prince MD, MADISONN Occupational Therapy Teacher of Clinical Medicine [facility] Progression of Care [...] Lora Colón RN, MSN, CCM, CMCN Clinical Tire Finisher- R[facility] Transplant #[phone] Made introductory visit with patient. Provided emotional and spiritual support. Patient shared about: - Source of Rosemary: Camping/Fishing/Family - Spirituality/Jain Affiliation: raised Worship - Family Support/history - Experience with illness/hospital course - Hopes for healing/future Technical Services Assistant provided: - Supportive presence - Active listening - Validation of feelings/emotions - Pledged prayer Patient encouraged to request a live truck technician as needed. Chaplains are available in-house 24 hours a day and 7 days a week. For urgent matters in [facility], please page [phone]. If the request is not urgent, please enter a consult. Consults are responded to within 24 hours. Senior Staff Technical Services Assistant Angie Singh Mdiv, [facility] [place] [phone] [email or web address] 22/06 On-call [place]: [phone] 22/06 Pager [place], and Brock Maciel Pager [phone] 09/02/23 1114 Clinical Encounter Type Visited With Patient Visit Type Introduction Pastoral Time Spent 15 min Referral Other (See Comment) (rounding) Spiritual Assessment Spiritual Observation Spirituality helpful Emotional Observation Coping well Hope Observation Specific hope focus Support Observation By Family Interventions Provided Active listening;Supportive presence Facilitated Verbalization of feelings Explored Expectations Crane Hoist Or Lift Operator Education Crane Hoist Or Lift Operator Service Available Yes Educated Patient Outcomes Patient Outcomes Reduced distress Plan of Care Continue Visiting PRN NUTRITION RISK SCREENING NOTE Nutrition Plan of Care: 1. Continue current diet order. 2. No oral supplements warranted at this time. 3. Monitor for significant weight changes. Monitor GI and skin integrity. 4. Monitor and encourage po intakes with goal of average po being 100%. 5. injection maintenance technician to follow. George Tray Styles is [...] unavailable and information obtained via chart review Animal Humane Agent Supervisor Screening Pt's appetite is good. Pt [...] time. Will continue to monitor. RHIANNON [place] Pager:[phone] Internal Medicine Daily Progress Note Patient: George Styles, 1970, [id number] Physician: Evan Kelly MD, PGY-1, TM1 service [...] 2/2 renal function CAD: non-obstructive CAD on [facility] 2018. - continue home aspirin 81mg [...] as outlined above. Kevin Prince MD Pager [phone] Summary: Pharmacy Med Rec [...] Supply: 90 Refills: 0 Provider: Zuly Bruno LIQUOR BRIDGE OPERATOR [facility]: [facility] Other Comments: Patient reported his Last Home Dose of mycophenolate & tacrolimus was on 08/28/23 at 0900. Patient reported he was taking Bactrim and benzonatate for fevers and a cough he was having. Please feel free to contact me with any further questions. Name: Heidy Chatman Phone #: [phone] Date/Time: 09/01/2023 2:01 PM Time Spent: 15 minutes Associated attestation - Matt Kramer RPh,PharmJenna - 09/01/2023 2:28 PM EDT Department of Pharmacy Admission Medication Reconciliation Note Patient: George Styles Room/Bed: 1062/A I have reviewed the home medication list with the Director Of Nursing. All changes to the home medication list have been updated in IHIS. Updated MARKET INTELLIGENCE CONSULTANT Med List: Prior to Admission Medications Prescriptions [...] questions. Name: Matt Kramer RPh,PharmD Phone #: [phone] Date/Time: 09/01/2023 2:28 PM Transplant Infectious Disease [...] crypto antigen, EBV PCR -follow pending histo, [id number] labs These recommendations were discussed with the primary team. Transplant ID (Team 3) will continue to follow. Please Epic message or page [phone] with questions. Evan White DO Transplant Infectious Diseases Internal Medicine Daily Progress Note Patient: George Styles, 1970, [id number] Physician: Evan Kelly MD, PGY-1, TM1 service [...] 2/2 renal function CAD: non-obstructive CAD on [facility] 2018. - continue home aspirin 81mg [...] 5.05 (H) 11/19/2018 Kevin Prince MD, SERA Occupational Therapy Teacher of Clinical Medicine [facility] Discharge Planning Patient [...] Yes Name and Contact information: Gian Styles ([phone]) Reviewed and Updated in Demographics? : Yes Outpatient Providers Does patient have a primary care physician? : Yes When was the patient's last PCP visit?: > 30 days Does the patient follow any specialists?: No Reviewed and updated Care Team?: Yes Patient Care Team: Zuly Bruno CNP as PCP - General Environment/Caregivers Is the patient from a facility or intermediate?: No Patient lives with: Alone Living Environment: [...] patient on Anticoagulation? : No [id number] [place] [address] - [address] [place] [id number] Manager Reliability Does the patient or traveling sales representative express financial concerns? : No Employed?: Disabled Coping/Stress Concerns about patient s coping and stress?: No Concerns about patient s caregiver s coping and stress?: No Values and Beliefs Cultural or hoahaoism practices that may impact discharge planning and/or [...] Plan 1. Identified self and role as Tire Finisher. 2. Confirmed and updated demographics and treatment team. 3. Tire Finisher will continue to follow with medical team/pt for any other additional discharge needs. Kasandra DON RN [facility] [phone] *Please note I am float CM and work Thursday and Thursday every other week. Please call [phone] for assist in my absence. Internal Medicine Daily Progress Note Patient: George Styles, 1970, [id number] Physician: Evan Kelly MD, PGY-1, TM1 service [...] 2/2 renal function CAD: non-obstructive CAD on [facility] 2018. - continue home aspirin 81mg [...] CREATSERUM 5.05 (H) 11/19/2018 Kevin Prince MD, [facility] Occupational Therapy Teacher of Clinical Medicine [facility] Internal Medicine Daily Progress Note Patient: George Styles, 1970, [id number] Physician: Laurel Serrano MD, PhD, PGY-3, TM1 [...] losartan 50mg BID CAD: non-obstructive CAD on [facility] 2019. - continue home aspirin 81mg daily, atorvastatin 20mg daily Gout: continue home allopurinol 200mg daily BPH: continue home flomax 0.4mg daily DVT PPX: SQH Code Status: Full Code Disposition: Pending clinical course. Anticipate eventual discharge home. Discussed with team and attending, Kevin Prince MD, on rounds. Signed, Laurel Serrano MD, PhD documented in this encounter [facility] 09-10-2023 Hospital Discharge instructions Laurel Serrano MD, [...] a sleep doctor. You will need to fruit picker machine operator the oxygen concentrator when [...] healthy foods. documented in this encounter [facility] 09-01-2023 Consult note Associated Order (s): IP CONSULT TO PULMONOLOGY Pulmonary Medicine Inpatient Consultation Reason for Consultation: bronch for infectious workup Requesting Physician: Dr. Prince Pulmonary Attending Physician: Dr. Diaz CURRENT HOSPITALIZATION: Admit Date: 08/28/2023 [facility] LOS: 4 days Impression/Recommendations: George [...] short period of time. 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 Other histories as documented in the [...] had any ill contacts. He traveled to [place] to [facility] in May. REVIEW OF SYSTEMS A [...] GUIDANCE 05/17/2022 Surgeon: nEzo Heart DO; Location: [facility] INTERVENTIONAL RADIOLOGY (VIR) LIVER TRANSPLANT, ORTHOTOPIC N/A 04/12/2020 Laterality: N/A; Surgeon: LU Palma; Location: [facility] SAME DAY SURGERY MAIN OR KIDNEY TRANSPLANT W/O TABLE MOUNTAIN NEPHRECTOMY N/A 04/12/2020 Laterality: N/A; Surgeon: LU aPlma; Location: [facility] SAME DAY SURGERY MAIN [...] Alamo MD I can be reached via Seelio secure message (preferred) or Pager #[phone] documented in this encounter [facility] 08-28-2023 History and physical note Images from the original note were not included. Internal Medicine Admission History & Physical Patient: George Styles, 1970, [id number] Physician: Aric Turner MD, PGY1, Pager #[phone], TM service Date of face to face [...] So he went to see the transplant hospice chaplain. He was found elevated Cr and asked [...] Appetite is ok now. Urine is about 4652-2587 ml every day. Stool every day, no [...] GUIDANCE 05/17/2022 Surgeon: Enzo Heart DO; Location: [facility] INTERVENTIONAL RADIOLOGY (VIR) LIVER TRANSPLANT, ORTHOTOPIC N/A 04/12/2020 Laterality: N/A; Surgeon: LU Palma; Location: [facility] SAME DAY SURGERY MAIN OR KIDNEY TRANSPLANT W/O TABLE MOUNTAIN NEPHRECTOMY N/A 04/12/2020 Laterality: N/A; Surgeon: LU Palma; Location: [facility] SAME DAY SURGERY MAIN [...] Urinary histoplasmosis - PJP, candid PCR - Storeperson transplant ID Acute Kidney Injury with Kidney [...] losartan 50mg BID CAD: non-obstructive CAD on [facility] 2018. - continue aspirin 81mg daily, [...] Pierson, Luisa Steven, Renee Rivera, Daisha Max Newspaper Or Periodical Editor: José Miguel Garnica All Txt: 04/13/2020 (Kidney), [...] results found for: CYCLOSPORIN , CYCLOSPORIN2 , [id number] , CYCLORAND No results found for: SIROLIMUS [...] Rest as above. Kevin Prince MD Pager [phone] documented in this encounter [facility] 08-28-2023 History of Present illness Narrative Images from the original note were not included. 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 Newspaper Or Periodical Editor: Anayeli Burt Date of Liver Transplant: 04/13/2020 (Kidney), 04/13/2020 (Liver) 3 years 4 months post Liver/Kidney Transplant Primary Disease: Hypertensive Nephrosclerosis Transplant Sewer Separation Designer: Erma Roe/ Daisha Max Primary Care physician: [...] and faMOTIdine === None Specified Preferred Lab: [facility] Change in lab frequency / [...] every 12 hours. ADDITIONAL INFORMATION: None Specified, [id number] [place] [address] - [address] [facility] [address] [facility] [address] [facility] [address], [address] [place] [address] [id number] [place] [address] [address] [facility] [address] [facility] [address] [facility] [address], [address] [place] [address] ROS and SCREEN: Chest Pain: negative Cough: [...] saw George Styles at the [facility] on 08/28/2023. Patient [...] GUIDANCE 05/17/2022 Surgeon: Enzo Heart DO; Location: [facility] INTERVENTIONAL RADIOLOGY (VIR) LIVER TRANSPLANT, ORTHOTOPIC N/A 04/12/2020 Laterality: N/A; Surgeon: LU Palma; Location: [facility] SAME DAY SURGERY MAIN OR KIDNEY TRANSPLANT W/O TABLE MOUNTAIN NEPHRECTOMY N/A 04/12/2020 Laterality: N/A; Surgeon: LU Palma; Location: [facility] SAME DAY SURGERY MAIN [...] you have any questions. Steve Munoz MD tube repairer Division of Nephrology [facility] documented in this encounter [facility] 08-28-2023 Instructions Mainor Busby RN - 08/28/2023 2:15 PM EDT - Admission for fevers, cough, and night sweats documented in this encounter [facility] 08-19-2023 History of Present illness Narrative [facility] RX OUTREACH ADVANCED: Call Information: Date and Time of Contact: 08/19/2023 2:52 PM Method of Contact: By Phone Contact Type: Prescriptions Contactor: [facility] Contactee: Patient Shipping/Pickup: Medicare B Refill?: No Medication Name: Tacro 0.5mg Delivery Method: Air Delivery Location: Home Signature Required: No Mailing/Pickup Date: 08/25/2023 Shipping Address: [address] [place] [address] [address] Contact Info: Specialty ([place]) [phone] Jakob [phone] [facility] [phone] David [phone] Bedside Delivery ([facility]) [phone] documented in this encounter [facility] 06-12-2023 History of Present illness Narrative Images from the original note were not included. George Styles is a 53 y.o. 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 No longer follows with a local hospice chaplain. History of Present Illness: Since George was [...] and lab results. Rebeca Gutierrez MSN, RN, DIABETOLOGIST-BC, CCTN Certified Nurse Practitioner [facility] [address] [facility] [address] documented in this encounter [facility] 06-12-2023 Instructions JEANNA Hess - 06/12/2023 3:00 PM EDT No change in immunosuppression. documented in this encounter [facility] 06-10-2023 History of Present illness Narrative [facility] RX OUTREACH ADVANCED: Call Information: Method of Contact: By Phone Contact Type: Prescriptions Contactor: [facility] Contactee: Patient Contact Outcome: Left message Shipping/Pickup: Medication Name: Mycophenolate sod 180 mg Contact Info: Specialty ([place]) [phone] [facility] [phone] [facility] [phone] David [phone] Bedside Delivery ([facility]) [phone] [facility] RX OUTREACH ADVANCED: Call Information: Date and Time of Contact: 06/12/2023 9:43 AM Method of Contact: By Phone Contact Type: Prescriptions Contactor: [facility] Contactee: Patient Contact Outcome: Left message and Follow-up Shipping/Pickup: Medicare B Refill?: No Medication Name: Myco 180 Contact Info: Specialty ([place]) [phone] [facility] [phone] [facility] [phone] David [phone] Bedside Delivery ([facility]) [phone] [facility] RX OUTREACH ADVANCED: Call Information: Date and Time of Contact: 06/12/2023 10:08 AM Method of Contact: By Phone Contact Type: Prescriptions Contactor: [facility] Contactee: Patient Shipping/Pickup: Medicare B Refill?: No Medication Name: Mycophenolate 180mg DR Delivery Method: Air Delivery Location: Home Signature Required: No Mailing/Pickup Date: 06/17/2023 Shipping Address: [address] [address] Contact Info: Specialty ([place]) [phone] [facility] [phone] [facility] [phone] David [phone] Bedside Delivery ([facility]) [phone] documented in this encounter [facility] 03-12-2023 History of Present illness Narrative [facility] RX OUTREACH ADVANCED: Call Information: Date and Time of Contact: 03/12/2023 10:34 AM Method of Contact: By Phone Contact Type: Prescriptions Contactor: [facility] Contactee: Patient Shipping/Pickup: Medicare B Refill?: No Medication Name: Mycophenoloate sod 360 mg prednisone 5mg Delivery Method: Air Delivery Location: Home Signature Required: No Mailing/Pickup Date: 03/16/2023 Shipping Address: [address] [place] [address] Contact Info: Specialty ([place]) [phone] [facility] [phone] [facility] [phone] David [phone] Bedside Delivery ([facility]) [phone] [facility] RX OUTREACH ADVANCED: Call Information: [...] Required: No Mailing/Pickup Date: 03/19/2023 Shipping Address: [address] [place] [address] [address] Contact Info: Specialty ([place]) [phone] [facility] [phone] [facility] [phone] David [phone] Bedside Delivery ([facility]) [phone] documented in this encounter [facility] 03-10-2023 History of Present illness Narrative [facility] RX OUTREACH ADVANCED: Call Information: Date and Time of Contact: 03/10/2023 12:00 PM Method of Contact: By Phone Contact Type: Prescriptions Contactor: [facility] Contactee: Patient Contact Outcome: Left message and Call back later Shipping/Pickup: Medication Name: Mycophenolate ; Tacrolimus Contact Info: Specialty ([place]) [phone] [facility] [phone] [facility] [phone] David [phone] Bedside Delivery ([facility]) [phone] documented in this encounter [facility] 03-10-2023 History of Present illness Narrative [facility] RX OUTREACH ADVANCED: Call Information: Date and Time of Contact: 03/10/2023 12:00 PM Method of Contact: By Phone Contact Type: Prescriptions Contactor: [facility] Contactee: Patient Contact Outcome: Left message and Call back later Shipping/Pickup: Medication Name: Mycophenolate ; Tacrolimus Contact Info: Specialty ([place]) [phone] [facility] [phone] [facility] [phone] [place] [phone] Bedside Delivery ([facility]) [phone] [facility] RX OUTREACH ADVANCED: Call Information: Date and Time of Contact: 03/12/2023 10:32 AM Method of Contact: By Phone Contact Type: Prescriptions Contactor: [facility] Contactee: Patient Contact Outcome: Left message Shipping/Pickup: Medication Name: Mycophenolate sodium (MYFORTIC) 180 MG Tab tacrolimus 0.5 mg Contact Info: Specialty ([place]) [phone] Jakob [phone] [facility] [phone] David [phone] Bedside Delivery ([facility]) [phone] documented in this encounter [facility] 01-16-2023 History of Present illness Narrative -Referring Provider for today's consult: Daisha Max DO -Primary Care Provider: Zuly Bruno History of Present Illness George Styles is a 52 y.o. male who presents to the [facility] today for follow-up of [...] GUIDANCE 05/17/2022 Surgeon: Enzo Heart DO; Location: [facility] INTERVENTIONAL RADIOLOGY (VIR) LIVER TRANSPLANT, ORTHOTOPIC N/A 04/12/2020 Laterality: N/A; Surgeon: LU Palma; Location: [facility] SAME DAY SURGERY MAIN OR KIDNEY TRANSPLANT W/O TABLE MOUNTAIN NEPHRECTOMY N/A 04/12/2020 Laterality: N/A; Surgeon: LU Palma; Location: [facility] SAME DAY SURGERY MAIN [...] 0.3 12/29/2022 Explant Pathology Pathologic Diagnosis A. Pauma liver, orthotopic liver transplant resection (1458 gram): [...] frequent nighttime urination, etc). Daisha Max DO Occupational Therapy Teacher Gastroenterology, Hepatology and Nutrition [facility] Pager: [phone] Images from the original note were not included. 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 Newspaper Or Periodical Editor: Anayeli Burt Date of Liver Transplant: 04/13/2020 (Kidney), 04/13/2020 (Liver) 2 years, 8 months post Liver/Kidney Transplant Primary Disease: Hypertensive Nephrosclerosis Transplant Sewer Separation Designer: Steve Munoz Primary Care physician: Zuly Bruno [...] levels: No results found for: CYCLOSPORIN, CYCLOSPORIN2, [id number], CYCLORAND No components found for: CYCLOSPORINE, 2HR [...] hours. ADDITIONAL INFORMATION: None Specified [id number] [place] [address] - [address] [facility] [address] [facility] [address] [facility] [address], [address] [facility] [address] [id number] - [place] [id number] [address] [facility] [address] [facility] [address] [facility] [address], [address] [facility] [address] ROS and SCREEN: Chest Pain: negative Cough: [...] ADDRESS WITH PHYSICIAN: documented in this encounter [facility] 01-16-2023 Instructions José Miguel Garnica RN - 01/16/2023 9:40 AM EST - Labs Every 2 months - Discuss night time urination with your PCP - Schedule Colonoscopy through PCP - Follow up in 1 year documented in this encounter [facility] 09-10-2022 History of Present illness Narrative UROLOGY CLINIC NOTE Reason for Appointment: BPH with LUTS HPI: Patient is a 52 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 Nephrostomy tube placed 05/17/22 due to FAYE. Last Cr down to 1.03 on 07/03. Unclear origin of FAEY and possible obstruction. Concern for possible renal [...] Negative for , diarrhea, constipation Genitourinary: See IONE Neurological: Negative for headaches. Lymph/Heme: Negative for [...] x 4, Normal strength. No edema. Skin: [place], warm, and dry. There are no rashes [...] MD 09/10/22 documented in this encounter [facility] 07-07-2022 History of Present illness Narrative Patient [...] assisted off the table and escorted to spa receptionist where they made a follow up. [...] with a DDRT to the [facility] in 2019. Nephrostomy tube placed 05/17/22 due [...] MD 07/07/22 documented in this encounter [facility] 06-27-2022 History of Present illness Narrative UROLOGY [...] Negative for , diarrhea, constipation Genitourinary: See IONE Neurological: Negative for headaches. Lymph/Heme: Negative for [...] x 4, Normal strength. No edema. Skin: [place], warm, and dry. There are no rashes [...] with a DDRT to the [facility] in 2019. Nephrostomy tube placed 05/17 due [...] bag if needed. documented in this encounter [facility] 06-27-2022 History and physical note Patient was evaluated in clinic as a nurse visit. Please refer to Rena Brewster's note. [facility] Work Phone: 06-27-2022 History and physical note Patient was evaluated in clinic as a nurse visit. Please refer to Rena Brewster's note. documented in this encounter [facility] 06-27-2022 History of Present illness Narrative TEACHING REGARDING TX NEPH COMPLETED-NEPH TUBE SITE DRY AND INTACT-CLEAR YELLOW URINE IN THE BAG-INSTRUCTED ABOUT FLUSHING, BAG CHANGING ETC. NUMEROUS QUESTIONS ASKED AND ANSWERED-VERBALIZED UNDERSTANDING documented in this encounter [facility] 06-18-2022 Note EXAMINATION: CT ABD/ [...] authenticated by: MÓNICA JIMENEZ Date: 2022-06-18 13:53 [facility] 06-12-2022 Instructions Anayeli Christianson RN - 06/12/2022 3:21 PM EDT Do not take apart/disrupt nephrostomy tube system. Call Interventional Radiology and/or on-call transplant nurse [phone] for instruction if need to flush (clot or decreased flow). Take cipro 500mg, one tablet, twice per day for 14 days documented in this encounter [facility] 06-12-2022 History of Present illness Narrative Images from the original note were not included. 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 Newspaper Or Periodical Editor: Anayeli Burt Date of Liver Transplant: 04/13/2020 (Kidney), 04/13/2020 (Liver) 2 year, 1 months post Liver/Kidney Transplant Primary Disease: Hypertensive Nephrosclerosis Transplant Sewer Separation Designer: Steve Munoz Primary Care physician: Zuly Bruno [...] transport for appointment: no Did front desk worker confirm current address and insurance information is [...] LAB AND PHARMACY: None Specified [facility] [place] [address] - [address] [facility] [address] [facility] [address] [facility] [address], [address] [facility] [address] [id number] [place] [address] [address] [facility] [address] [place] [address] [facility] [address], [address] [place] [address] ROS and SCREEN: Chest Pain: negative Cough: [...] saw George Styles at the [facility] on 06/12/2022. Patient [...] GUIDANCE 05/17/2022 Surgeon: Enzo Heart DO; Location: [facility] INTERVENTIONAL RADIOLOGY (VIR) LIVER TRANSPLANT, ORTHOTOPIC N/A 04/12/2020 Laterality: N/A; Surgeon: LU Palma; Location: [facility] SAME DAY SURGERY MAIN OR KIDNEY TRANSPLANT W/O TABLE MOUNTAIN NEPHRECTOMY N/A 04/12/2020 Laterality: N/A; Surgeon: LU Palma; Location: [facility] SAME DAY SURGERY MAIN [...] you have any questions. Steve Munoz MD tube repairer Division of Nephrology [facility] documented in this encounter [facility] 06-04-2022 Instructions TATI GROVE - 06/04/2022 11:04 AM EDT Thank you for joining us for your neph tube follow up. We recommend routine exchange every 8-10 weeks. Please reach out at [phone] when it is time to set your next routine exchange. Thank you IR clinic documented in this encounter [facility] 06-04-2022 History of Present illness [...] exchange. Verbalized understanding. documented in this encounter [facility] 05-20-2022 Note Formatting of this [...] time of his discharge. Leon Cook RN [facility] 05-20-2022 Miscellaneous Notes Patient discharged. [...] provide teaching before his discharge Leon RN #[id number] Leon Cook RN Afternoon assessment completed at [...] Interdisciplinary Rounds/Family Conf Outcome: Ongoing Discuss[facility] with [facility] re: possible urine culture performed at their facility. However, based on urinalysis completed at that time, which was only notable for hematuria, culture was not performed and sample no longer feasible for culture. Liam Julian MD Internal Medicine/Pediatrics, PGY-3 2002: Wunsch-BrautkleidIS message sent to Dr Justyn Wen, regarding patient passing a small kidney stone, about the size of pea. notified. Stone left in strainer in pt bathroom. 499: Wunsch-BrautkleidIS message sent to Dr Justyn Wen, regarding [...] with questions. Evan Byrd MD Urology, PGY-2 #[id number] I certify that this patient requires inpatient [...] performed by Kallie Lorenzana RN and Sheri Arugelles RN. Skin Assessment: WDL Jose Score: 20 LDA Added:N Kallie Lorenzana RN documented in this encounter [facility] 05-20-2022 Note Formatting of this [...] discharge/transition of care. Outcome: Adequate for Discharge [facility] 05-20-2022 Note Formatting of this n ote might be different from the original. Anne Dillard MD R10 [address] George Please let's have a clear order on how the nephrostomy site dressing need to be changed when the patient goes home so we provide teaching before his discharge Leon GALLARDO #[id number] Leon Cook RN [facility] 05-20-2022 History of Present illness Narrative Images from the original note were not included. [facility] Note: [facility] received the following discharge prescription(s): Medication reconciliation was completed with comparison to discharge reconciliation report. The prescription(s) will be delivered to the patient's bedside on 05/20/22. Total cost is $0. Yanira Her RPh,PharmD Specialty ([place]) [phone] [facility] [phone] [facility] [phone] David [phone] [place] [phone] Bedside Delivery ([facility]) [phone] Attending I saw George Styles at the [facility] on 05/19/2022. I saw and [...] Daily Progress Note Patient: George Styles, 1970, [id number] Physician: Liam Julian MD, PGY-3, Pager #[phone], [email or web address] Subjective/Interval History: No acute events overnight. Passed [...] MD Internal Medicine/Pediatrics, PGY-3 Associated attestation - Dyaa Saldana MD - 05/19/2022 2:41 PM EDT [...] Saldana MD Division of Hospital Medicine Pager [phone] Attending I saw George Styles at the [facility] on 05/18/2022. 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 Daya (Nunu) Jeff Saldana MD Division of Hospital Medicine Pager [phone] Internal Medicine Daily Progress Note Patient: George Styles, 1970, [id number] Physician: Nishant Gamez MD, PGY2, Pager #[phone], [email or web address] Subjective/Interval History: Worsening creatinine this morning with [...] MD (Peggy) Division of Hospital Medicine Pager [phone] Attending I saw George Styles at the [facility] on 05/17/2022. I saw and [...] of chart and discussion with treatment team, Tire Finisher has not identified needs at this time. [...] follow. Introduced self and role of the live truck technician to patient. Provided emotional and spiritual support and the patient responded by sharing their experience and discussed the following: - Spirituality/Jain Affiliation: As a kid attended Worship congregation but not a strong identity now - Family support - pt's brothers live close by Technical Services Assistant provided: - Supportive presence - Active listening - Validation of feelings/emotions Patient encouraged to request a live truck technician as needed. Chaplains are available in-house 24 hours a day and 7 days a week. For urgent matters in [facility], please page [phone]. If the request is not urgent, please enter a consult. Consults are responded to within 24 hours. Angie Singh Mdiv, [facility] Burn Unit and Transplant [place] [address] Technical Services Assistant [facility] Technical Services Assistant [place] [phone] [email or web address] 22/06 [facility] Pager [phone] 22/06 Pager ,[facility], and [place] 1500 22/06 [place] Pager [phone] 05/16/22 1129 Clinical Encounter Type Visited With Patient Visit Type Introduction Pastoral Time Spent 15 min Referral Other (See Comment) (Rounding) Spiritual Assessment Spiritual Observation Spirituality helpful;Identifies as (see comment) (Sikh) Emotional Observation Coping well Hope Observation Hopeful and accepting Support Observation By Family Interventions Provided Active listening;Supportive presence Facilitated Verbalization of feelings;Sharing of life story;Identifying support system Explored Expectations Crane Hoist Or Lift Operator Education Crane Hoist Or Lift Operator Service Available Yes Educated Patient Outcomes Patient Outcomes Articulated purpose/meaning Plan of Care Continue Visiting PRN Internal Medicine Daily Progress Note Patient: George Styles, 1970, [id number] Physician: Nishant Gamez MD, PGY2, Pager #[phone], [id number] Subjective/Interval History: Overall feeling okay this morning. 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 [...] Supervision Transfer Assessment: Sit to Stand Transfer [place] Level: Sit->Stand: independent Skilled Intervention/Details: Sit->Stand: x1 from EOB Stand to Sit Transfer [place] Level: Stand->Sit: supervision Assistive Device: Stand->Sit: armed chair Skilled Rationale: Controlled descent for sitting, Verbal cues Gait/Functional Mobility: Gait Assessment [place] Level: Gait: supervision Assistive Device: Gait: gait belt Gait Distance (feet): 200 Gait Deviations Identified: decreased grace, decreased step length, decreased stride length Gait Skilled Rationale: verbal, upright posture Skilled Intervention/Details - Gait: Pt with steady gait without LOB or complaints of SOB. Stairs: Stairs Assessment [place] Level: Stair Negotiation: stand-by assist Assistive Device: [...] reported no concerns with discharging home with tilden support. 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 IADL History IADLs: independent Primary Language: Jordanian Home Management Skills: independent Meal Prep Responsibility: [...] Assessment: Transfer Assessment: Sit to Stand Transfer [place] Level: Sit->Stand: independent Skilled Rationale: Cues for increased safety Skilled Intervention/Details: Sit->Stand: x1 EOB Stand to Sit Transfer [place] Level: Stand->Sit: supervision Assistive Device: Stand->Sit: gait belt, armed chair Skilled Rationale: Verbal cues, Controlled descent for sitting, Cues for increased safety Skilled Intervention/Details: Stand->Sit: cues for hand placement and controlled descent Functional Mobility: Functional Mobility [place] Level: Functional Mobility/Gait: stand-by assist Assistive Device: [...] 04/12/2020 Laterality: N/A; Surgeon: LU Palma; Location: [facility] SAME DAY SURGERY MAIN [...] by: Mel Norman OT, OTR/L License #: [id number] pager # [phone] 05/20/2022 Upon discontinuation of Acute Care Occupational Therapy Services or patient discharge from the hospital this note represents the current Occupational Therapy Discharge Summary. documented in this encounter [facility] 05-20-2022 Hospital course Narrative Discharge [...] during his recent hospital stay at [facility]. As you may know, George [...] Saldana MD Division of Hospital Medicine p: [phone] f: [phone] CONSULTS DURING ADMISSION: IP CONSULT TO SURGERY - UROLOGY IP CONSULT TO NEPHROLOGY - TRANSPLANT (MEDICINE) IP CONSULT TO INTERVENTIONAL RADIOLOGY IP CONSULT TO PHYSICAL THERAPY IP CONSULT TO OCCUPATIONAL THERAPY IP CONSULT TO PHARMACY BEDSIDE DISCHARGE MED DELIVERY IMAGING / PROCEDURES / RESULTS: Should you require further information or copies of results or reports please contact Medical Information Management @ [phone] LABS AT TIME OF DISCHARGE: Lab Results [...] AT DISCHARGE: Zuly Kiana [address] Count Includes [facility] / [place] [address] MEDICATIONS: Discharge Orders CT ABDOMEN/PELVIS WITHOUT CONTRAST [...] CAPS Generic drug: docusate Follow-up: Zuly Bruno, COMMUNITY ENGAGEMENT SPECIALIST [address] [facility] [address] Schedule an appointment as soon as possible for a visit Follow-up appointment with your, primary care physician within 7-10 days, after discharge. [address] [facility] [phone] Follow up The department of urology will call you with a follow up appointment. LU Ovalle [address] 11th Floor [facility] [phone] Follow up Please make a follow up appointment with Dr. Munoz's office. Upcoming Appointments (up to five)-Some appointments for Medical Center outpatient clinics or diagnostic testing locations are not displayed below Provider Department Dept Phone 06/04/2022 10:40 AM IR [facility] Interventional Radiology Clinic [phone] 06/27/2022 1:30 PM [facility] Department of Radiology Arrive at: Arrive to First Floor Registration Desk [phone] 06/27/2022 2:40 PM Ryan Yepez [facility] Arrive at: Arrive to 2nd Floor, Registration [address] 10/31/2022 1:00 PM Steve Munoz [facility] [phone] 01/16/2023 9:40 AM TRANSPLANT HEPATOLOGY 3, [facility] Transplant Center Brain and Spine [facility] [phone] Associated attestation - Daya Saldana MD - [...] Saldana MD Division of Hospital Medicine Pager [phone] documented in this encounter [facility] 05-20-2022 Hospital Discharge instructions Giulia Cavazos RN [...] be changed by Interventional Radiology. Please call [phone] to schedule this appointment and with any questions or concerns you may have regarding the nephrostomy tube. If you have questions or concerns, please call Interventional Radiology at SOMEONE FROM INTERVENTIONAL RADIOLOGY WILL CALL YOU FOR A FOLLOW UP IN THE IR CLINIC Giulia Cavazos RN Nurse Coordinator Interventional Radiology Interventional Radiology Outpatient scheduling documented in this encounter [facility] 05-19-2022 Note Formatting of this n ote [...] Ongoing Goal: Interdisciplinary Rounds/Family Conf Outcome: Ongoing [facility] 05-19-2022 Note Formatting of this n ote might be different from the original. Discussed with [facility] re: possible urine culture performed at their facility. However, based on urinalysis completed at that time, which was only notable for hematuria, culture was not performed and sample no longer feasible for culture. Liam Julian MD Internal Medicine/Pediatrics, PGY-3 [facility] 05-18-2022 Note Formatting of this n ote might be different from the original. 2003: IHIS message sent to Dr Justyn Wen, regarding patient passing a small kidney stone, about the size of pea. MD notified. Stone left in strainer in pt bathroom. 0500: IHIS message sent to Dr Justyn Wen, regarding pt BP 174/77. [facility] 05-18-2022 Note Formatting of this [...] outcomes by discharge/transition of care. Outcome: Ongoing [facility] 05-18-2022 Note Formatting of this [...] becomes hyponatremic, NS should instead be used. [facility] Work Phone: 05-18-2022 Note Formatting of this n ote might be different from the original. IHIS chat sent to Dr Tray Quintana, regarding pt BP 190/86. Pt complaining of pain at site of neph tube. PRN pain medication given per order parameters. Pt denies any other symptoms at this time. notified and aware. [facility] 05-17-2022 Note Formatting of this n ote might be different from the original. At 0900, I rounded with Dr. Gamez and Dr. Saldana. At that time I checked Mr. Styles's vital signs. His pulse oximeter was low and he was tachypneic. Verbal order at bedside to put nasal cannula on starting at 2liters oxygen and to provide incentive spirometer. [facility] 05-17-2022 Note Formatting of this n ote might be different from the original. Interventional Radiology procedure completed with IR Attending Dr. Heart / Dr. Le of percutaneous right nephrostomy tube placement transplant kidney 10.2 Fr Griffin acosta Pt tolerated procedure with moderate sedation local numbing agent . Transported to inpatient after phase I recovery. Post procedure orders in place. [facility] 05-16-2022 Note Formatting of this n ote might be different from the original. At 1530, I text paged Kaitlynn Gomez MD that patient has only had 25ml urine output in matias this afternoon. [facility] 05-16-2022 Note Formatting of this [...] with questions. Evan Byrd MD Urology, PGY-2 #[id number] [facility] Work Phone: 05-16-2022 Note Formatting [...] care will be discharge to home. [facility] 05-16-2022 Consult note Associated Order (s): IP CONSULT TO NEPHROLOGY - TRANSPLANT (MEDICINE) I saw George Styles at the [facility] on 05/16/2022. Reason for Consultation: [...] he was given flomax and sent home. [place] better but noticed more pain and decreased [...] best assessment and recommendations. Maxi Pringle MD [facility] Work Phone: 05-16-2022 Consult note Associated Order (s): IP CONSULT TO NEPHROLOGY - TRANSPLANT (MEDICINE) I saw George Styles at the [facility] on 05/16/2022. Reason for Consultation: [...] he was given flomax and sent home. [place] better but noticed more pain and decreased [...] states he went to his local ED [place] and he was put on Flomax and he did improve. Pt states last night he was unable to void with severe right sided abd pain. Pt states nausea and no vomiting or fevers. Pt states he went back to [place] ED at 0100 and they placed a [...] PGY-3, Department of Urologic Surgery Pager #: [phone] Associated attestation - Ryan Yepez MD - [...] continue flomax documented in this encounter [facility] 05-16-2022 Note Formatting of this n ote [...] supported Trust Relationship/Rapport: care explained choices provided [facility] 05-16-2022 Note Formatting of this n ote might be different from the original. On admission to [facility], a dual RN initial assessment of skin condition was performed by Kallie Lorenzana RN and Sheri Arguelles RN. Skin Assessment: WDL Jose Score: 20 LDA Added:N Kallie Lorenzana RN [facility] 05-15-2022 Emergency department Note Report given to Kallie RN at 10 [facility] 05-15-2022 Emergency department Note Report [...] Schneider MD Resident 05/15/222030 Pt arrives from [facility] with kidney stones. Pt states he had right lower abd pain and right flank pain with blood in his urine since Thursday. Pt states he went to his local ED [place] and he was put on Flomax and he did improve. Pt states last night he was unable to void with severe right sided abd pain. Pt states nausea and no vomiting or fevers. Pt states he went back to [place] ED at 0100 and they placed a matias and CT scan completed and multiple kidney stones noted. [facility] as he had liver and kidney transplant in 03/2020. documented in this encounter [facility] 05-15-2022 History and physical note Internal Medicine Admission History & Physical Patient: George Styles, 1970, [id number] Physician: Evan Bennett MD, PGY1, Pager #[phone], GM 4 service Date of face to [...] 04/12/2020 Laterality: N/A; Surgeon: LU Palma; Location: [facility] SAME DAY SURGERY MAIN OR KIDNEY TRANSPLANT W/O TABLE MOUNTAIN NEPHRECTOMY N/A 04/12/2020 Laterality: N/A; Surgeon: LU Palma; Location: [facility] SAME DAY SURGERY MAIN [...] Skin: No jaundice or rash Neuro: risk consultant 3-7, 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 Strength grossly [...] dilation of the calyces may represent narrowing/partial [id number] ofthe ureter and mild hydronephrosis or sequela [...] MD Division of Hospital Medicine [phone] [facility] Work Phone: 05-15-2022 History and physical note Internal Medicine Admission History & Physical Patient: George Styles, 1970, [id number] Physician: Evan Bennett MD, PGY1, Pager #[phone], GM 4 service Date of face to [...] went back to he ED [place]. Matias was placed and the patient [...] 04/12/2020 Laterality: N/A; Surgeon: LU Palma; Location: [facility] SAME DAY SURGERY MAIN OR KIDNEY TRANSPLANT W/O TABLE MOUNTAIN NEPHRECTOMY N/A 04/12/2020 Laterality: N/A; Surgeon: LU Palma; Location: [facility] SAME DAY SURGERY MAIN [...] Skin: No jaundice or rash Neuro: risk consultant 3-7, 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 Strength grossly [...] dilation of the calyces may represent narrowing/partial [id number] ofthe ureter and mild hydronephrosis or sequela [...] Medicine [id number] documented in this encounter [facility] 05-15-2022 Emergency department Note Bladder scan with Dr Villatoro at bedside, 14ml noted [facility] 05-15-2022 Consult note Associated Order (s): IP [...] states he went to his local ED [place] and he was put on Flomax and he did improve. Pt states last night he was unable to void with severe right sided abd pain. Pt states nausea and no vomiting or fevers. Pt states he went back to [place] ED at 0100 and they placed a [...] PGY-3, Department of Urologic Surgery Pager #: [phone] Associated attestation - Ryan Yepez MD - [...] before surgical intervention --may continue flomax [facility] Work Phone: 05-15-2022 Emergency department Note Advised Dr Schneider concerning no urine output via matias catheter. [facility] 05-15-2022 Physician Emergency department Note [...] plan of care. Gian Villatoro MD 05/15/222003 [facility] Work Phone: 05-15-[address] Schneider made aware of only 30 ml urine via matias since arrival to room. [facility] 05-15-2022 Physician Emergency department Note [...] discussed with Urology as above. Impression: UTI, FYAE Dispo: Admit to medicine This note was dictated with M-Modal. Every effort was made to correct grammatical mistakes but please excuse any incorrections. Matt Schneider MD Resident 05/15/222030 [facility] Work Phone: 05-15-2022 Emergency department Note Pt arrives from [facility] with kidney stones. Pt states he had right lower abd pain and right flank pain with blood in his urine since Thursday. Pt states he went to his local ED [place] and he was put on Flomax and he did improve. Pt states last night he was unable to void with severe right sided abd pain. Pt states nausea and no vomiting or fevers. Pt states he went back to [place] ED at 0100 and they placed a matias and CT scan completed and multiple kidney stones noted. Pt [facility] as he had liver and kidney transplant in 03/2020. [facility] 03-14-2022 History of Present illness [...] No Mailing/Pickup Date: 03/17/2022 Shipping Address: [address] [place] [address] [address] Contact Info: Specialty ([place]) [phone] Jakob [phone] [facility] [phone] David [phone] Bedside Delivery ([facility]) [phone] documented in this encounter [facility] 06-14-2021 History of Present illness [...] 05/16/22 Goal Progress: Satisfactory Contact Info: Specialty ([place]) [phone] [facility] [phone] [facility] [phone] [facility] [phone] Bedside Delivery ([facility]) [phone] [facility]RE[facility]: Call Information: Date [...] Location: Home Signature Required: Yes Shipping Address: [address] [place] [address] [address] [facility] [address] Contact Info: Specialty ([place]) [phone] Jakob [phone] [facility] [phone] [facility] [phone] Bedside Delivery ([facility]) [phone] documented in this encounter [facility] Evaluation + Plan note Future Appointments Appointment Date:11/22/2024 09:00:00 AM Scheduled Provider:JONATHAN Almodovar APRN, [place] Location:[facility] Appointment Type:URO Office Visit [facility] Evaluation note Diagnosis FAYE (acute kidney injury)- Primary Acute kidney failure, unspecified Hydronephrosis due to obstruction of ureteral orifice Hydronephrosis due to obstruction of ureteral orifice FAYE (acute kidney injury) Acute kidney failure, unspecified [facility] Diagnosis Follow-up exam- Primary Unspecified follow-up examination [facility] Diagnosis Immunosuppressed status- Primary Unspecified disorder of immune mechanism Kidney replaced by transplant Liver replaced by transplant Abnormal blood chemistry Other abnormal blood chemistry High risk medication use Encounter for long-term (current) use of other medications Aftercare following organ transplant Liver transplant recipient [facility] Diagnosis Attention to nephrostomy- Primary [facility] Diagnosis Other hydronephrosis- Primary [facility] Diagnosis FAYE (acute kidney injury) Acute kidney failure, unspecified 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) Encounter for screening for malignant neoplasm of prostate Special screening for malignant neoplasm of prostate [facility] Diagnosis Abnormal blood chemistry- Primary Other abnormal blood chemistry Liver transplant recipient Kidney replaced by transplant Immunosuppressed status Unspecified disorder of immune mechanism Aftercare following organ transplant [facility] Diagnosis Kidney replaced by transplant- Primary [facility] Diagnosis Immunosuppressed status- Primary Unspecified disorder of immune mechanism Kidney replaced by transplant Aftercare following organ transplant High risk medication use Encounter for long-term (current) use of other medications Other general symptoms and signs Abnormal blood chemistry Other abnormal blood chemistry Hypertension secondary to other renal disorders [facility] Diagnosis Histoplasmosis- Primary Histoplasmosis, [...] Fever Fever, unspecified [facility] Diagnosis Bilateral lower extremity edema- Primary 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* Diagnosis Pleural effusion on [...] specified pre-operative examination [facility] Diagnosis Heart failure, diastolic, acute- Primary Acute diastolic heart failure [facility] Diagnosis Liver lesion- Primary Other specified disorders of liver Liver transplant recipient High risk medication use Encounter for long-term (current) use of other medications Therapeutic drug monitoring Encounter for therapeutic drug monitoring Immunocompromised Unspecified immunity deficiency [facility] Diagnosis Kidney replaced by transplant- Primary [facility] Narrative No data available for this section [facility] progress note No data available for this section [facility] reason for referral (narrative)* Consultation (Routine) - New Request Specialty Diagnoses / Procedures Referred By Contac t Referred To Contact Interventional Radiology Diagnoses Hydronephrosis due to obstruction of ureteral orifice Daya Saldana MD [address] [place] [address] Referral ID Status Reason Start Date Expiration Date V isits Requested Visits Authorized [id number] New Request 05/18/2022 06/12/2023 1 1 * Radiology (Emergency) - New Request Specialty Diagnoses / Procedures Referred By Contac t Referred To Contact Procedures US RENAL TRANSPLANT SCAN Daya Saldana MD [address] [place] [address] Referral ID Status Reason Start Date Expiration Date V isits Requested Visits Authorized [id number] New Request 05/16/2022 06/10/2023 1 1 * Consultation (Routine) - New Request Specialty Diagnoses / Procedures Referred By Contac t Referred To Contact Urology Diagnoses FAYE (acute kidney injury) Ryan Yepez MD [address] [place] [address] Referral ID Status Reason Start Date Expiration Date V isits Requested Visits Authorized [id number] New Request 05/16/2022 06/10/2023 1 1 * MRI/CAT Scan (Routine) - New Request Specialty Diagnoses / Procedures Referred By Contac t Referred To Contact Diagnoses FAYE (acute kidney injury) Procedures CT ABDOMEN/PELVIS WITHOUT CONTRAST CHG CT SCAN,ABDOMENT AND PELVIS,W/O CONTRAST Ryan Yepez MD [address] [place] [address] Referral ID Status Reason Start Date Expiration Date V isits Requested Visits Authorized [id number] New Request 05/16/2022 06/10/2023 1 1 * (Routine) - Pending Review Specialty Diagnoses / Procedures Referred By Contac t Referred To Contact Procedures PLATELET MONITORING PER PROTOCOL Daya Saldana MD [address] [place] [address] Referral ID Status Reason Start Date Expiration Date V isits Requested Visits Authorized [id number] Pending Review 05/15/2022 06/09/2023 1 1 * (Routine) - Pending Review Specialty Diagnoses / Procedures Referred By Contac t Referred To Contact Procedures DVT/VTE RISK ASSESSMENT Daya Saldana MD [address] [place] [address] Referral ID Status Reason Start Date Expiration Date V isits Requested Visits Authorized [id number] Pending Review 05/15/2022 06/09/2023 1 1 * (Routine) Specialty Diagnoses / Procedures Referred By Contac t Referred To Contact Evan Bennett MD [address] [place] [id number] Referral ID Status Reason Start Date Expiration Date Visits Re quested Visits Authorized * (Routine) Specialty Diagnoses / Procedures Referred By Contac t Referred To Contact Evan Bennett MD [address] [place] [id number] Referral ID Status Reason Start Date Expiration Date Visits Re quested Visits [facility] Consultation (Routine) - New Request Specialty Diagnoses / Procedures Referred By Contac t Referred To Contact Sleep Medicine Diagnoses Hypoxia Kevin Prince MD [address] [place] [phone] Referral ID Status Reason Start Date Expiration Date V isits Requested Visits Authorized [id number] New Request 09/10/2023 10/04/2024 1 1 * MRI/CAT Scan (Routine) - New Request Specialty Diagnoses / Procedures Referred By Contac t Referred To Contact Diagnoses Histoplasmosis Procedures CT CHEST WITHOUT CONTRAST CHG DIAGNOSTIC COMPUTED TOMOGRAPHY THORAX W/O Kevin Zarate MD [address] [place] [address] Referral ID Status Reason Start Date Expiration Date V isits Requested Visits Authorized [id number] New Request 09/10/2023 10/04/2024 1 1 * Radiology (Routine) - New Request Specialty Diagnoses / Procedures Referred By Contac t Referred To Contact Procedures US RENAL TRANSPLANT SCAN Steve Munoz MBBS [address] [place] [address] Referral ID Status Reason Start Date Expiration Date V isits Requested Visits Authorized [id number] New Request 08/29/2023 09/22/2024 1 1 * (Routine) - New Request Specialty Diagnoses / Procedures Referred By Contac t Referred To Contact Procedures PLATELET MONITORING PER PROTOCOL Steve Munoz MBBS [address] [place] [address] Referral ID Status Reason Start Date Expiration Date V isits Requested Visits Authorized [id number] New Request 08/28/2023 09/21/2024 1 1 * (Routine) - New Request Specialty Diagnoses / Procedures Referred By Contac t Referred To Contact Procedures DVT/VTE RISK ASSESSMENT Steve Munoz MBBS [address] [place] [address] Referral ID Status Reason Start Date Expiration Date V isits Requested Visits Authorized [id number] New Request 08/28/2023 09/21/2024 1 1 [facility] Instructions * Patient Instructions - Christin Elizabeth APRN-ROB - 10/19/2018 9:21 AM EST You should take an extra dose of the lactulose as needed so that you are having 3-4 bowel movementsdaily. You should start the chemical dependency counseling as soon as possible. If you have questions, call the transplant nursing home social worker Fidelina Pierson. in this encounter* Patient Instructions - Sophie Cary RN - 10/12/2018 11:09 AM EST You have been seen in the pre-transplant evaluation clinic by Dr. Restrepo and Sophie Cary. Sophie Cary is your pre-implant coordinator she can be reached at [phone] at any time for questions during the pre-transplant process. Your evaluation is complete pendin. Abdominal ultrasound. 2. 6 minute walk test. 3. Cardiology evaluation. Additionally, your caretaker resort will recommend testing to screen for coronary artery disease. This will be scheduled for you after your cardiology visit. 4. Your coordinator will be requesting record from your last dental visit, colonoscopy and EGD. 5. Please work to complete social work recommendations. Your nursing home social worker will be contacting you to follow up on your progress. 6. You have also been referred for a kidney transplant. An appointment will be scheduled for you sari evaluated in the kidney transplant clinic after you have satisfied requirements dictated by [employer]. Once your testing is complete, we [...] ___ Other Name MRN * Christin Elizabeth, DIABETOLOGIST-COMMUNITY ENGAGEMENT SPECIALIST - 10/19/2018 9:00 AM EST Formatting of this note may be different from the original. History of Present Illness: Chief Complaint Patient presents with Follow-up Cirrhosis George Styles is a 48 y.o. male who presents to the [facility] today regarding his diagnosis/chief complaint(s) of Cirrhosis secondary to ETOH, with ESRD follows with Dr. Orr. Currently undergoing evaluation for liver/kidney transplant. Has been seen in transplant clinic for eval. Still undergoing pre testing. Diagnosed in April 2018. Last drink was immediately prior to hospital admission in [place] for ACLF. Hospital course notable for ARF [...] kidney transplant evaluation. Pt was AOx3. Transplant Scraper Meat role/function was explained and reviewed. The patient was informed that the results of this assessment will be shared with the referring provider and the transplant team. The patient verbalized understanding of this information. The [facility] psychosocial assessment consent form has been explained to patient and has been signed. Pt is completing this evaluation with brother (David) in the Outpatient setting. [facility] educated pt on the benefits of completing/filing advanced directives and resources were offered. Pt identifies with [employer]. Pt confirms being a [place] Citizen. Pt.'s primary language is Jordanian. Pt confirms the ability to read,write, and understand Jordanian. Pt denies potential donors. Donor cards and [...] has valid license, does not regularly drive (COMMUNITY ENGAGEMENT SPECIALIST recommends that he not to drive). He [...] related disease etoh cirrohosis April dx in [facility] for thirty days. Pt reports learning [...] as well as referred him to pre implant coordinator. Pt and support demonstrated moderate understanding [...] Patient's brother David is a self employed and rescue fire fighter crash fire. Additional support includes his other brother Tyshawn and his Mary live fifteen minutes away. Of note Mary is a poundmaster for a [employer] is available to assist education department chair. He confirms being comfortable asking [...] in 2010, he was employed by the [employer]. He has access to SSDI payment (SSDI starts in November) in regards to financial means pre/ post-transplant. Pt confirms (meeting bills currently, ) being able to meet daily needs. Patient's brother asking for additional information on community resources, food stamps and [employer]. Refer him to pt.'s dialysis center and the [facility]. Hereports access to Medicaid. Pt. denies [...] court ordered treatment after a DUI charge [facility], court ordered treatment in 2001 and in [...] by patient from his primary medical provider- [facility] patient was noted as attending an [...] provided with local AOD resources, [facility] AOD informational packet. Pt was referred for [...] 2008; Ming et al, [employer] 2012. * Alfredtio Restrepo MD - 10/12/2018 10:00 AM EST Formatting of this note may be different from the original. Pretransplant new visit Date of service: 10/12/2018 -Referring nub card tender for today's consult: -Primary Care Provider: Zuly Bruno CC: Chief Complaint Patient presents with Liver Recipient Evaluation History of Present Illness George Styles is a 48 y.o. male who presents to the [facility] liver transplant surgery clinic today for evaluation [...] EST Timed up and go 9.9 seconds Food Production Manager Left 52.8 pounds Right 44.9 pounds Waist circ 38.5 inches * Sophie Cary RN - 10/12/2018 10:00 AM EST Formatting of this note may be different from the original. Patient George Styles ([id number]), accompanied by his brother, was seen on [...] any further questions. Sophie GUERINN, RN Liver Newspaper Or Periodical Editor Etiology: ETOH HCC: No ETOH: Yes Last [...] Yovani Orr MD [address] [address] Status Reason Specialty Diagnoses / Procedures Referred By Contact Referred To Contact New Request Diagnoses Cirrhosis of liver with ascites, unspecified hepatic cirrhosis type Procedures US ABDOMEN RUQ/LIVER/GB Yovani Orr MD [address] [address] Specialty Diagnoses / Procedures Referred By Contac t Referred To Contact Diagnoses FAYE (acute kidney injury) Procedures CT ABDOMEN/PELVIS WITHOUT CONTRAST CHG CT SCAN,ABDOMENT AND PELVIS,W/O CONTRAST Central Scheduling [address] [place] [address] Referral ID Status Reason Start Date Expiration Date V isits Requested Visits Authorized [id number] Pending Review 05/16/2022 06/10/2023 1 1 Specialty Diagnoses / Procedures Referred By Contac t Referred To Contact Diagnoses Other hydronephrosis Procedures FLUORO IMAGING FOR UROLOGY Ryan Yepez MD [address] [place] [address] Referral ID Status Reason Start Date Expiration Date V isits Requested Visits Authorized [id number] New Request 07/07/2022 08/01/2023 1 1 Specialty Diagnoses / Procedures Referred By Contac t Referred To Contact Procedures DIRECT ADMIT REQUEST Steve Munoz, JOSHBS [address] [place] [address] Referral ID Status Reason Start Date Expiration Date V isits Requested Visits Authorized [id number] New Request 08/28/2023 09/21/2024 1 1 Specialty Diagnoses / Procedures Referred By Contac t Referred To Contact Radiology Diagnoses DARLENE (obstructive sleep apnea) Primary hypertension (CMS/HCC) Bilateral lower extremity edema Shortness of breath Procedures Echocardiogram 2D complete Zuly Bruno NP [address] [place] [address] Referral ID Status Reason Start Date Expiration Date Visits Requested Visits Authorized [id number] Incomplete Perform Procedure 01/06/2024 07/04/2024 1 1 Specialty Diagnoses / Procedures Referred By Contac t Referred To Contact Procedures US IMAGING REGIONAL ANESTHESIA Kehinde Gutierrez MD [address] [place] [address] Referral ID Status Reason Start Date Expiration Date V isits Requested Visits Authorized [id number] New Request 01/22/2024 02/15/2025 1 1 Specialty Diagnoses / Procedures Referred By Contac t Referred To Contact Cardiovascular Medicine Diagnoses Heart failure, diastolic, acute Kelvin Pacheco MD, MBBS [address] [place] [address] Referral ID Status Reason Start Date Expiration Date V isits Requested Visits Authorized [id number] New Request 01/20/2024 02/13/2025 1 1 Specialty Diagnoses / Procedures Referred By Contac t Referred To Contact Procedures US ABDOMEN LIVER DOPPLER US ABDOMEN LIVER TRANSPLANT DOPPLER Timothy Joseph MD [address] [facility] [address] [place] [address] Referral ID Status Reason Start Date Expiration Date V isits Requested Visits Authorized [id number] New Request 01/16/2024 02/09/2025 1 1 Specialty Diagnoses / Procedures Referred By Contac t Referred To Contact Procedures DVT/VTE RISK ASSESSMENT Kelvin Pacheco MD, MBBS [address] [place], [place] [id number] Referral ID Status Reason Start Date Expiration Date V isits Requested Visits Authorized [id number] New Request 01/16/2024 02/09/2025 1 1 Specialty Diagnoses / Procedures Referred By Contac t Referred To Contact Procedures PLATELET MONITORING PER PROTOCOL Kelvin Pacheco MD, MBBS [address] [place] [address] Referral ID Status Reason Start Date Expiration Date V isits Requested Visits Authorized [id number] New Request 01/16/2024 02/09/2025 1 1 Referral ID Status Reason Start Date Expiration Date V isits Requested Visits Authorized [id number] New Request 01/16/2024 02/09/2025 1 1 Specialty Diagnoses / Procedures Referred By Contac t Referred To Contact Procedures ECG Kelvin Pacheco MD, [facility] [address] [place] [address] Referral ID Status Reason Start Date Expiration Date V isits Requested Visits Authorized [id number] New Request 01/16/2024 02/09/2025 1 1 Specialty Diagnoses / Procedures Referred By Contac t Referred To Contact Diagnoses Liver lesion Procedures MRI ABDOMEN WITH AND WITHOUT CONTRAST CHG MRI ABDOMEN W/O & W/CONTRAST MATERIAL Daisha Max, DO [address] [place], [place] [id number] Referral ID Status Reason Start Date Expiration Date V isits Requested Visits Authorized [id number] New Request 06/17/2024 07/12/2025 1 1 Advance Directives Documents on File Type Date Recorded Patient Story Analyst Expl anation Advance Directives and Living Will Power of Field Collector Latest Code Status on File Code Status [...] Yovani Orr MD [address] [address] Status Reason Specialty Diagnoses / Procedures Referre d By Contact Referred To Contact Denied Diagnoses Alcoholic cirrhosis, unspecified whether ascites present Pre-transplant evaluation for liver transplant Procedures MRI ABDOMEN WITH CONTRAST DE MRI, ABDOMEN W/CONTRAST Yovani Orr MD [address] [address] Reason Comments Liver Recipient Evaluation Status Reason Specialty Diagnoses / Procedures Referred By Contact Referred To Contact New Request Transplant / Transplant Surgery Procedures PRE NEW PATIENT Yovani Orr MD [address] [address] Alfredito Restrepo MD [address] [place] [address] Reason Comments Reschedule Reason Comments Outside Medical Records Request Reason Comments Social Work Follow-up Reason Comments Kidney Stone Specialty Diagnoses / Procedures Referred By Deni edwards Referred To Contact Diagnoses Obstructing kidney stone, s/p kidney transplant 2019 Daya Saldana MD [address] [place] [address] [facility] [address] [place] [address] Referral ID Status Reason Start Date Expiration Date Visits Re quested Visits Authorized [id number] 1 1 Reason Comments Follow-up Reason Comments Kidney Recipient Follow-up Liver Recipient Follow-up Reason Comments Consult Reason Comments New Patient Hospital follow up Specialty Diagnoses / Procedures Referred By Deni edwards Referred To Contact Urology Diagnoses hosp fu with [address] prior Procedures NEW TO DOC/RET PATIENT Zuly Bruno, ROB [address] [place] [address] Ryan Yepez MD [address] [place] [address] Referral ID Status Reason Start Date Expiration Date Visits Re quested Visits Authorized [id number] Closed 06/27/2022 07/22/2023 1 1 Specialty Diagnoses / Procedures Referred By Contac t Referred To Contact Diagnoses FAYE (acute kidney injury) Procedures CT ABDOMEN/PELVIS WITHOUT CONTRAST CHG CT SCAN,ABDOMENT AND PELVIS,W/O CONTRAST Central Scheduling [address] [place] [address] Referral ID Status Reason Start Date Expiration Date V isits Requested Visits Authorized [id number] Pending Review 05/16/2022 06/10/2023 1 1 Reason Comments Follow-up Specialty Diagnoses / Procedures Referred By Contac t Referred To Contact Urology Diagnoses 1 week fu post NT clamp Procedures RETURN PATIENT Zuly Bruno CNP [address] [place] [address] Ryan Ypeez MD [address] [place] [address] Referral ID Status Reason Start Date Expiration Date Visits Requested Visits Authorized [id number] Authorized - [facility] 07/07/2022 08/01/2023 2 2 Specialty Diagnoses / Procedures Referred By Contac t Referred To Contact Diagnoses Other hydronephrosis Procedures FLUORO IMAGING FOR UROLOGY Ryan Yepez MD [address] [place] [address] Referral ID Status Reason Start Date Expiration Date V isits Requested Visits Authorized [id number] New Request 07/07/2022 08/01/2023 1 1 Specialty Diagnoses / Procedures Referred By Contac t Referred To Contact Urology Diagnoses 1 week fu post NT clamp Procedures RETURN PATIENT Zuly Bruno, COMMUNITY ENGAGEMENT SPECIALIST [address] [place] [address] Ryan Yepez MD [address] [place] [address] Referral ID Status Reason Start Date Expiration Date Visits Re quested Visits Authorized [id number] Closed 07/07/2022 08/01/2023 2 2 Reason Comments Liver Recipient Follow-up Reason Comments Kidney Recipient Follow-up Reason Comments Kidney Recipient Follow-up Specialty Diagnoses / Procedures Referred By Contac t Referred To Contact Diagnoses Kidney replaced by transplant Steve Munoz MBBS [address] [place] [address] [facility] [address] [place] [address] Referral ID Status Reason Start Date Expiration Date Visits Re quested Visits Authorized [id number] 1 1 Specialty Diagnoses / Procedures Referred By Contac t Referred To Contact Diagnoses Pleural effusion on right PNEUMONIA- HX LIVER AND KIDNEY TRANSPLANT Kevin Prince MD [address] [place] [address] [facility] [address] [place] [address] Referral ID Status Reason Start Date Expiration Date Visits Re quested Visits Authorized [id number] 1 1 Reason Comments New Patient Specialty Diagnoses / Procedures Referred By Contac t Referred To Contact Cardiovascular Medicine Diagnoses Heart failure, diastolic, acute Kelvin Pacheco MD, MBBS [address] 1[address] [place] [address] Referral ID Status Reason Start Date Expiration Date Visits Requested Visits Authorized [id number] Authorized - 01/20/2024 02/13/2025 5 5 Reason Comments Liver Recipient Follow-up (unrecognized sect ion and content) No Status Records FoundNo Status Records FoundNo Status Records FoundNo Status Records FoundNo Status Records FoundNo Status Records FoundNo Status Records Found INFORMATION SOURCE (unrecogn ized section and content) DATE CREATED AUTHOR 01/07/2020 [facility] DATE CREATED AUTHOR AUTHOR'S ORGANIZ ATION 01/27/2021 [facility] DATE CREATED AUTHOR AUTHOR'S ORGANIZ ATION 05/11/2023 [facility] DATE CREATED AUTHOR AUTHOR'S ORGANIZ ATION 06/03/2024 [facility] DATE CREATED AUTHOR AUTHOR'S ORGANIZ ATION 08/25/2024 [facility] DATE CREATED AUTHOR AUTHOR'S ORGANIZ ATION 09/09/2024 [facility] DATE CREATED AUTHOR AUTHOR'S ORGANIZ ATION 09/10/2024 [facility] Care Teams (unrecognized sec tion and content) Clinical Data Management Manager Relationship Specialty Start Date End Date Zuly Bruno CNP PCP - General 07/19/18 Comfort Rivera, [facility] [address] [facility] [address] [place] [address] Pharmacist Pharmacist 05/16/20 Angel Carpio RPh,PharmD Pharmacist Pharmacist 05/16/20 Te Leigh RPh,PharmD Pharmacist Pharmacist 01/09/21 Clinical Data Management Manager Relationship Specialty Start Date End Date Zuly Bruno CNP PCP - General 07/19/18 Comfort Rivera [facility] [address] [place] [address] Pharmacist Pharmacist 05/16/20 Angel Carpio RPh,PharmD Pharmacist Pharmacist 05/16/20 Te Leigh RPh,PharmD Pharmacist Pharmacist 01/09/21 Clinical Data Management Manager Relationship Specialty Start Date End Date Zuly Bruno CNP PCP - General 07/19/18 Clinical Data Management Manager Relationship Specialty Start Date End Date Zuly Bruno CNP PCP - General 07/19/18 Clinical Data Management Manager Relationship Specialty Start Date End Date Zuly Bruno CNP PCP - General 07/19/18 Clinical Data Management Manager Relationship Specialty Start Date End Date Zuly Bruno CNP PCP - General 07/19/18 Clinical Data Management Manager Relationship Specialty Start Date End Date FloreslatishaZuly tipton CNP PCP - General 07/19/18 Clinical Data Management Manager Relationship Specialty Start Date End Date FloreslatishaZuly tipton CNP PCP - General 07/19/18 Clinical Data Management Manager Relationship Specialty Start Date End Date Zuly Bruno CNP PCP - General 07/19/18 Clinical Data Management Manager Relationship Specialty Start Date End Date Zuly Bruno CNP PCP - General 07/19/18 Clinical Data Management Manager Relationship Specialty Start Date End Date FloreslatishaZuly tipton CNP PCP - General 07/19/18 Clinical Data Management Manager Relationship Specialty Start Date End Date Zuly Bruno CNP PCP - General 07/19/18 Clinical Data Management Manager Relationship Specialty Start Date End Date KristophersylvesterlatishaZuly tipton CNP PCP - General 07/19/18 Clinical Data Management Manager Relationship Specialty Start Date End Date Kiana ZulyROB PCP - General 07/19/18 Clinical Data Management Manager Relationship Specialty Start Date End Date Zuly Bruno CNP PCP - General 07/19/18 Clinical Data Management Manager Relationship Specialty Start Date End Date Zuly Bruno CNP PCP - General 07/19/18 Clinical Data Management Manager Relationship Specialty Start Date End Date Zuly Bruno CNP PCP - General 07/19/18 Evan White DO [address] [place] [address] Infectious Disease Infectious Disease 09/09/23 Clinical Data Management Manager Relationship Specialty Start Date End Date Zuly Bruno CNP PCP - General 07/19/18 Evan White DO [address] [place] [address] Infectious Disease Infectious Disease 09/09/23 Clinical Data Management Manager Relationship Specialty Start Date End Date Zuly Bruno CNP PCP - General 07/19/18 Evan White DO [address] [place] [address] Infectious Disease Infectious Disease 09/09/23 Clinical Data Management Manager Relationship Specialty Start Date End Date Momo Verdugo MD PCP - General Family Medicine 05/21/23 Clinical Data Management Manager Relationship Specialty Start Date End Date Momo Verdugo MD PCP - General Family Medicine 05/21/23 Clinical Data Management Manager Relationship Specialty Start Date End Date Momo Verdugo MD PCP - General Family Medicine 05/21/23 Clinical Data Management Manager Relationship Specialty Start Date End Date Zuly Bruno CNP PCP - General 07/19/18 Evan White DO [address] [place] [address] Infectious Disease Infectious Disease 09/09/23 Clinical Data Management Manager Relationship Specialty Start Date End Date Zuly Bruno CNP PCP - General 07/19/18 Evan White DO [address] [place] [address] Infectious Disease Infectious Disease 09/09/23 Clinical Data Management Manager Relationship Specialty Start Date End Date Zuly Bruno CNP PCP - General 07/19/18 Evan White DO [address] [place] [address] Infectious Disease Infectious Disease 09/09/23 Clinical Data Management Manager Relationship Specialty Start Date End Date Zuly Bruno CNP PCP - General 07/19/18 Evan White [place] [facility] [address] Infectious Disease Infectious Disease 09/09/23 Clinical Data Management Manager Relationship Specialty Start Date End Date Zuly Bruno CNP PCP - General 07/19/18 Evan White DO [address] [place] [address] Infectious Disease Infectious Disease 09/09/23 Clinical Data Management Manager Relationship Specialty Start Date End Date Zuly Bruno CNP PCP - General 07/19/18 Clinical Data Management Manager Relationship Specialty Start Date End Date Zuly Bruno CNP PCP - General 07/19/18 Clinical Data Management Manager Relationship Specialty Start Date End Date Zuly Bruno CNP PCP - General 07/19/18 Clinical Data Management Manager Relationship Specialty Start Date End Date Zuly Bruno CNP PCP - General 07/19/18 Clinical Data Management Manager Relationship Specialty Start Date End Date Zuly Bruno CNP PCP - General 07/19/18 Clinical Data Management Manager Relationship Specialty Start Date End Date Zuly Bruno CNP PCP - General 07/19/18 Clinical Data Management Manager Relationship Specialty Start Date End Date Zuly Bruno CNP PCP - General 07/19/18 Clinical Data Management Manager Relationship Specialty Start Date End Date Momo Verdugo MD [address] [place] [address] PCP - General Family Medicine 02/11/24 Zuly Bruno NP [address] [place] [address] Nurse Practitioner Family Medicine 02/11/24 Kasandra Thomas DO [address] [place] [address] Referring Physician Neurology 02/17/24 Scheduled Active and [...] multiple BM today) 0931 (Given - Provider: Loen Cook, SAMI)2099 (Canceled Entry - Provider: System [...] Mel Hampton RN) 0805 (Given - Provider: Jsoey Braun RN) 0933 (Given - Provider: Leon Cook RN) Continuous Medication Order 05/18/2022 05/19/2022 05/20/2022 lactated ringers IV solution (CANCELED) Intravenous, at 100 mL/hr, CONTINUOUS, Starting on 05/18/22 at 1230, Until 05/18/22 at 1645 1557 ($$New Bag$$ - Provider: Mel Hampton RN)1558 (Rate/Dose Verify - Provider: Carolyn Isaac RN)1737 (Paused - Provider: Caorlyn Isaac RN)1807 (Restarted - Provider: Carolyn Isaac [...] 0841 (Given - Provider: Terra Heart RN)1053 ([facility] Hold - Provider: Automatic Transfer - Reason: Transfer to a Procedural area)141 ([facility] Unhold - Provider: Automatic Transfer)180 (Given - Provider: Terra Heart RN) 0920 (Given - Provider: Terra Heart RN)1700 (Canceled Entry - Provider: System Discharge - Comment: Automatically canceled at discontinue of medication order) Gabapentin (NEURONTIN) capsule 400 mg 400 mg, Oral, DAILY AT BEDTIME, First dose on 01/16/24 at 0200, Until Discontinued 2033 (Given - Provider: Tati Ahmadi RN) 1053 ([facility] [facility] Hold - Provider: Automatic Transfer - Reason: Transfer to a Procedural area)141 ([facility] Unhold - Provider: Automatic Transfer)2008 (Given - [...] 0842 (Given - Provider: Terra Heart RN)1053 ([facility] Hold - Provider: Automatic Transfer - Reason: Transfer to a Procedural area)141 ([facility] Unhold - Provider: Automatic Transfer)2008 (Given - [...] 0841 (Given - Provider: Terra Heart RN)1053 ([facility] Hold - Provider: Automatic Transfer - Reason: Transfer to a Procedural area)1414 ([facility] Unhold - Provider: Automatic Transfer) 0920 (Given [...] 0841 (Given - Provider: Terra Heart RN)1053 ([facility] Hold - Provider: Automatic Transfer - Reason: Transfer to a Procedural area)1414 ([facility] Unhold - Provider: Automatic Transfer) 0920 (Given [...] from all sources in 24 hours. 1053 ([facility] Hold - Provider: Automatic Transfer - Reason: Transfer to a Procedural area)1414 ([facility] Unhold - Provider: Automatic Transfer)1806 (Given - [...] 200-200 mg and Simethicone 20 mg) 1053 ([facility] Hold - Provider: Automatic Transfer - Reason: Transfer to a Procedural area)1414 ([facility] Unhold - Provider: Automatic Transfer) guaiFENesin (ROBITUSSIN) oral solution 400 mg 400 mg, Oral, EVERY 6 HOURS NEEDED, Starting on 01/16/24 at 0202, Until 01/23/24 at 1752, Cough, Congestion 1053 ([facility] Hold - Provider: Automatic Transfer - Reason: Transfer to a Procedural area)1414 ([facility] Unhold - Provider: Automatic Transfer) HYDROmorphone (DILAUDID) [...] 0016, Until 01/23/24 at 1752, Insomnia 1053 ([facility] Hold - Provider: Automatic Transfer - Reason: Transfer to a Procedural area)1414 ([facility] Unhold - Provider: Automatic Transfer)2355 (Given - Provider: Tati Ahmadi, SAMI) Ondansetron (ZOFRAN) tablet 4 mg(Linked Group 1) 4 mg, Oral, EVERY 6 HOURS NEEDED, Starting on 01/16/24 at 0202, Until 01/23/24 at 1752, Nausea / Vomiting, 1st line for Nausea/Vomiting 1053 ([facility] Hold - Provider: Automatic Transfer - Reason: Transfer to a Procedural area)1414 ([facility] Unhold - Provider: Automatic Transfer)1809 (See Alternative - Provider: Terra Heart, SAMI) 0430 (See Alternative - Provider: Tati Ahmadi, SAMI)1415 (Given - Provider: Terra Heart, SAMI) Ondansetron 4mg/2ml (ZOFRAN) injection 4 mg(Linked Group 1) 4 mg, Intravenous, EVERY 6 HOURS NEEDED, Starting on 01/16/24 at 0202, Until 01/23/24 at 1752, Nausea / Vomiting, 1st line for Nausea/Vomiting 1053 ([facility] Hold - Provider: Automatic Transfer - Reason: Transfer to a Procedural area)1414 ([facility] Unhold - Provider: Automatic Transfer)1809 (Given - [...] 01/23/24 at 1752, Constipation 1st Line 1053 ([facility] Hold - Provider: Automatic Transfer - Reason: Transfer to a Procedural area)1414 ([facility] Unhold - Provider: Automatic Transfer) Prochlorperazine (COMPAZINE) injection 10 mg 10 mg, Intravenous, EVERY 6 HOURS NEEDED, Starting on 01/17/24 at 1538, Until 01/23/24 at 1752, Nausea / Vomiting, Refractory Nausea Vomiting, For IV route: dilute dose with 10mL normal saline and give by slow IV push at a rate of 5mg/min. Maximum of 40mg/day. 1053 ([facility] Hold - Provider: Automatic Transfer - Reason: Transfer to a Procedural area)1414 ([facility] Unhold - Provider: Automatic Transfer)2349 (Given - [...] BE BASED ON THE PRIMARY CLINICAL RECORDS. [employer] provides no warranty or guarantee of the accuracy or completeness of information in this document.
[2024-09-27 07:24] LABS: Basophils Percent Auto 0.6 % (0.2-2.0); Eosinophils Absolute Auto 0.2 10^3/uL (0.0-0.7); Eosinophils Percent Auto 3.2 % (0.9-7.0); Hemoglobin 15.8 g/dL (14.0-18.0); Immature Granulocytes Abs Auto 0.01 10^3/uL (0.00-0.03); Immature Granulocytes Pct Auto 0.2 % (0.0-0.5); Lymphocytes Absolute Auto 1.1 10^3/uL (1.2-3.8); Lymphocytes Percent Auto 22.8 % (20.5-60.0); Mean Corpuscular HGB Conc 33.6 g/dL (29.9-35.2); Mean Corpuscular Hemoglobin 29.6 pg (25.9-34.0); Mean Platelet Volume 9.3 fL (9.5-13.5); Monocytes Absolute Auto 0.4 10^3/uL (0.3-0.8); Neutrophils Absolute Auto 3.3 10^3/uL (1.4-6.5); Neutrophils Percent Auto 65.2 % (43.0-75.0); Platelet Count 222 10^3/uL (150-450); Red Blood Count 5.34 10^6/uL (4.70-6.10); Red Cell Distribution Width 12.4 % (11.0-15.0)
[2024-09-27 07:58] LABS: Alanine Aminotransferase 19 U/L (16-63); Albumin Level 3.8 g/dL (3.4-5.0); Alkaline Phosphatase 101 U/L (46-116); Anion Gap 14.9; Aspartate Amino Transferase 17 U/L (15-37); BUN Creatinine Ratio 14.2; Bilirubin Direct 0.2 mg/dL (0.0-0.2); Bilirubin Total 0.9 mg/dL (0.2-1.0); Calcium 9.3 mg/dL (8.5-10.1); Chloride 107 mmol/L (98-107); Estimated GFR (African America >60 (>=60 mL/min/1.73m^2); Estimated GFR (Non-African Ame 59 (>=60 mL/min/1.73m^2); Gamma Glutamyl Transpeptidase 18 U/L (15-85); Glucose 104 mg/dL (74-106); Magnesium 2.2 mg/dL (1.8-2.4); Phosphorus 2.8 mg/dL (2.6-4.7); Potassium 3.9 mmol/L (3.5-5.1); Sodium 143 mmol/L (136-145)
[2024-09-27 09:25] LABS: Creatinine Urine Random 140.57 mg/dL (20.00-300.00); Protein Creatinine Ratio Urine 0.13; Total Protein Urine Random 17.9 mg/dL (<=11.9)
[2024-09-29 17:07] LABS: Tacrolimus (FK506), Blood 1.7 ng/mL (2.0-20.0)
== END 2024-09-27 06:38 | disposition home or self-care (01) ==
LOC: LAB 06:39
PROVIDERS: PCP Nurse Practitioner
DX: R79.9 Abnormal finding of blood chemistry, unspecified (principal); Z94.4 Liver transplant status; Z94.0 Kidney transplant status; B39.9 Histoplasmosis, unspecified; D84.9 Immunodeficiency, unspecified; Z48.298 Encounter for aftercare following other organ transplant
CPT/HCPCS: 36415; 80048; 80189; 80197; 82042; 82247; 82248; 82570; 82977; 83735; 84075; 84100; 84156; 84450; 84460; 85025

== ENCOUNTER 2024-10-10 06:31 | Outpatient (OUT) | payer MEDICARE, MEDICAID, SELFPAY ==
--- OUTSIDE RECORDS SUMMARY | 2024-09-27 06:41 | XMS_ITS | CCD ---
Author Organization [facility] Care Team Providers Care Engine Repairer Service Name Role Phone Kiana Zuly Unavailable Unavailable [...] Unavailable AICHHOLZ, ZULY Primary Care Unavailable Aichholz [facility], [facility] Primary Care Provider Miguel [facility] [phone] Shirin [facility],PharmD, Angel Unavailable Unavailab makayla Leigh [facility],PharmD, Te Unavailable Unavai lable Aicholz [facility] Primary Care Provider CRISTINA, DR BURCH Admitting Unavailable MISC, DR BURCH Consulting Unavailable AICHHOLZ, BATCH AND FURNACE OPERATOR ZULY Primary Care Unavailable MISC, DR BURCH Attending Unavailable MISC, DR BURCH Admitting Unavailable MISC, DR BURCH Consulting Unavailable AICHHOLZ, BATCH AND FURNACE OPERATOR ZULY Primary Care Unavailable MISC, DR BURCH Attending Unavailable ARCELIA PIZARRO Consulting Unavailable KE BURNHAM Attending Unavailable KE BURNHAM Admitting Unavailable DR MÓNICA JIMENEZ Consulting Unavailable AICHHOLZ, BATCH AND FURNACE OPERATOR ZULY Primary Care Unavailable KE BURNHAM Consulting Unavailable MISC, DR BURCH Consulting Unavailable MISC, DR BURCH Attending Unavailable AICHHOLZ, BATCH AND FURNACE OPERATOR ZULY Primary Care Unavailable MISC, DR BURCH Admitting Unavailable MISC, DR BURCH Consulting Unavailable MISC, DR DOCTOR Attending Unavailable AICHHOLZ, BATCH AND FURNACE OPERATOR ZULY Primary Care Unavailable MISC, DOCTOR Admitting Unavailable MISC, DR DOCTOR Consulting Unavailable AICHHOLZ, BATCH AND FURNACE OPERATOR ZULY Primary Care Unavailable MISC, DOCTOR Admitting Unavailable MISC, DR DOCTOR Attending Unavailable MELINDA, DR GEORGE Munoz Consulting Unavailable MELINDA, DR GEORGE Munoz Attending Unavailable AICHHOLZ, BATCH AND FURNACE OPERATOR ZULY Primary Care Unavailable MELINDA, DR GEORGE Munoz Admitting Unavailable NAUN ., KE Consulting Unavailable MIRANDA, LYNDSAY Consulting Unavailable MELINDA, DR GEORGE Munzo Consulting Unavailable NAUN ., KE Attending Unavailable NAUN ., KE Admitting Unavailable AICHHOLZ, BATCH AND FURNACE OPERATOR ZULY Primary Care Unavailable NAUN ., KE Consulting Unavailable GIAN HERRING Consulting Unavailable AICHHOLZ, BATCH AND FURNACE OPERATOR ZULY Consulting Unavailable AICHHOLZ, BATCH AND FURNACE OPERATOR ZULY Attending Unavailable AICHHOLZ, BATCH AND FURNACE OPERATOR ZULY Admitting Unavailable AICHHOLZ, BATCH AND FURNACE OPERATOR ZULY Primary Care Unavailable MISC, DOCTOR Consulting Unavailable MISC, DOCTOR Admitting Unavailable MISC, DOCTOR Attending Unavailable AICHHOLZ, BATCH AND FURNACE OPERATOR ZULY Primary Care Unavailable MISC, DR DOCTOR Consulting Unavailable MISC, DR DOCTOR Attending Unavailable MISC, DR DOCTOR Admitting Unavailable AICHHOLZ, BATCH AND FURNACE OPERATOR ZULY Primary Care Unavailable MISC, DOCTOR Admitting Unavailable MISC, DOCTOR Consulting Unavailable MISC, DR DOCTOR Attending Unavailable AICHHOLZ, BATCH AND FURNACE OPERATOR ZULY Primary Care Unavailable MISC, DOCTOR Admitting Unavailable MISC, DR DOCTOR Consulting Unavailable AICHHOLZ, BATCH AND FURNACE OPERATOR ZULY Primary Care Unavailable MISC, DR DOCTOR Attending Unavailable MISC, DOCTOR Admitting Unavailable MISC, DR DOCTOR Consulting Unavailable AICHHOLZ, BATCH AND FURNACE OPERATOR ZULY Primary Care Unavailable MISC, DR DOCTOR Attending Unavailable AICHHOLZ, BATCH AND FURNACE OPERATOR ZULY Consulting Unavailable AICHHOLZ, BATCH AND FURNACE OPERATOR ZULY Attending Unavailable AICHHOLZ, BATCH AND FURNACE OPERATOR ZULY Admitting Unavailable AICHHOLZ, BATCH AND FURNACE OPERATOR ZULY Primary Care Unavailable DR MÓNICA JIMENEZ Consulting Unavailable Aichholz [facility], Zuly Primary Care Provider Evan White DO Unavailable Aichholz [facility], Zuly Primary Care Provider [phone] Evan White DO Unavailable Momo Verdugo MD Primary Care Provider Aichholz BATCH AND FURNACE OPERATOR, Zuly Primary Care Provider [phone] MIGUEL CARDONA Attending Unavailable AICHHOLZ, ZULY Attending [...] e KEVIN PRINCE Admitting Unavailable KELVIN PACHECO Attending Unavailable CONSULT, HEPATOBILIARY Consulting Unavailab le SYSTEM, PROVIDER NOT IN Referring Unavaila ble AICHHOLZ, ZULY Primary Care Unavailable KELVIN PACHECO Referring Unavailable CANDIE ALMAGUER Attending Unavailable AICHHOLZ, ZULY Primary Care Unavailable Steph Almodovar Attending Unavailable ZULY BRUNO Referring Unavailable Clementina Montesinos Attending Unavailable ZULY BRUNO Primary Care Physician Momo Verdugo MD Primary Care Provider Zuly Bruno NP Unavailable Martha Kasandra WHIPPLE Unavailable Allergies Allergy Classification Reported Allergen(s) Allergy Type Date of Onset Reaction(s) Facility (2 sources) Shellfish; Translations: [SHELLFISH DERIVED] Propensity to adverse reactions (disorder) 8 [facility] Repository (20 sources) Shellfish-Deriv ed Products Propensity to adverse reactions to drug 9 [facility] (3 sources) Shellfish; Translations: [shellfish] Drug allergy (disorder) Anaphylaxis (disorder) [facility] Medications Current Medications Medication Drug [...] 1 capsule by mouth once daily b igjpkop-S-veroq acid (NEPHROCAPS) 1 MG capsule Take 1 [...] ankle pain. 0 06/12/2020 06/12/2023 Discontinued lactulose 56904 mg powder for oral solution (19 sources) [...] 06/09/2018 Active take 2 tablets by mo [facility] three times daily as needed midodrine [...] DAILY (Solid Organ Transplant), First dose on [facility] 01/16/24 at 0800, Until Discontinued, Give on [...] tablet by mouth every 12 (twelve) hours 09/10/2023 Active Start: 09-03-2023 End: 09-11-2023 take [...] hours if needed for nausea or vomiting Active polyethylene glycol 3350 55469 mg powder for oral solution (20 sources) [...] 1 tablet by mouth three times weekly sulfamethoxazole-trimethoprim (Bactrim DS) 800-160 MG per tablet Take 1 tablet by mouth 3 (three) times a week 01/22/2024 Active Start: 09-04-2023 End: 09-11-2023 take 1 [...] Thursday (5 days a week). 20 Each 5 07/01/2024 09/06/2024 Discontinued (Reorder) Start: 06-22-2024 End: 07-01-2024 take 1 dose by mouth once Tacrolimus 0.2 MG Pack Mix 1 packet (0.2 mg) as directed and take by mouth every Thursday, Thursday and Thursday. 12 Each 5 06/22/2024 07/01/2024 Discontinued (Reorder) Start: 06-17-2024 End: [...] altered dose or route needed. Start: 03-10-2023 tacrolimus (Pr ograf) 0.5 MG capsule Take 0.2 mg by mouth 1 (one) time each day 5 days a week (Thursday-Thursday) 03/10/2023 Active Start: 03-10-2023 End: 09-10-2023 take [...] day(s), # 60 cap(s), Refills(s) 11, Pharmacy: [id number], 170, cm, 09/08/24 14:00:00 EDT, Height/Length Dosing, 90, kg, 09/08/24 14:00:00 EDT, Weight Dosing Start Date: 09/08/24 Stop Date: 09/03/25 Status: Ordered Start: 08-10-2024 take 1 capsule by mo uth every twenty-four hours at bedtime tamsulosin (Flomax) 0.4 MG 24 hr capsule Take 0.4 mg by mouth at bedtime 08/10/2024 Active Start: 11-03-2023 End: 01-23-2024 take 1 capsule [...] DAILY Start Date: 09/08/24 Status: Ordered Start: 05-17-2022 End: 05-20-2022 allopurinol (ZYLOPRIM) table [...] (20 sources) Dihydropyridine Calcium Channel Ibrahima Start: 08-12-2024 End: 11-10-2024 take 1 tablet by mouth once daily [...] itraconazole Fax results to: Dr. White - [phone] Transplant Ne[facility] - [phone] Each 09/10/2023 01/19/2024 Discontinued (Medication Reconciliation (suppress cancel msg)) Start: 09-10-2023 CUSTOM MEDICAT ION Labs to be obtained: 1- Tacrolimus level, trough - collect twice weekly until 09/24/23, then weekly until 10/08/23, them once every two weeks there after. 2- Itraconazole level - obtain once between 09/14-09/18. 3- Chem 6 - Obtain weekly while on itraconazole Fax results to: Dr. White - [phone] Transplant [facility] - [phone] Each 0 09/10/2023 Active Diatrizoate (1 [...] Oral, EVERY 12 HOURS, First dose on [facility] 05/15/22 at 2215, Until Discontinued Start: 05-23-2020 [...] tablet (20 sources) Histamine-2 Receptor Antagonist Start: 08-23-2024 End: 11-21-2024 take 1 tablet by mouth twice daily [...] before and 2 hours after administration. Start: 09-10-2023 End: 09-07-2024 take 100 mg by mouth [...] 01/16/2023 Discontinued take 2 tablets by mo [facility] in the morning magnesium oxide (Mag-Ox) 400 MG tablet Take 2 tablets by mouth in the morning. 0 [facility] magnesium oxide (MAG-OX) [...] rate of 5mg/min. Maximum of 40mg/day. sennosides, jail 8.6 mg oral tablet (1 [...] 250 mL torsemide 20 mg oral tablet (20 sources) Loop Diuretic Start: 01-22-2024 End: 01-23-2024 take 1 tablet by mouth once daily torsemide 20 mg Tab 20 mg = 1 tab(s), TAKE 1 TABLET BY MOUTH ONCE DAILY Start Date: 09/08/24 Status: Ordered Start: 01-20-2024 End: 01-21-2024 take 20 mg [...] Classification Problem Date Documented Da te Episodic/Chronic Anxiety disorders (8 sources) Generalized anxiety disorder; Translations: [Generalized anxiety disorder] Onset: 3 11-03-2023 Chronic Chronic kidney disease (20 sources) End stage renal failure on dialysis; Translations: [End-stage renal disease] Onset: 8 06-22-2018 Chronic Congestive heart failure; nonhypertensive (20 sources) Acute diastolic heart failure; Translations: [Acute diastolic (congestive) heart failure] Onset: 4 01-20-2024 Chronic Coronary atherosclerosis and other heart disease (20 sources) Coronary arteriosclerosis; Translations: [Atherosclerotic heart disease of [place] coronary artery without angina pectoris] Onset: 3 04-22-2020 Chronic Disorders of lipid metabolism (7 sources) Hyperlipidemia, unspecified; Translations: [Mixed hyperlipidemia] Onset: 3 Chronic Esophageal disorders (4 sources) Gastroesophageal reflux disease; Translations: [Gastro-esophageal reflux disease without esophagitis] Onset: 3 11-03-2023 Chronic Essential hypertension (20 sources) Benign essential hypertension; Translations: [Essential (primary) hypertension] Onset: 2 04-22-2020 Chronic Genitourinary symptoms and ill-defined conditions (1 source) Finding of urological device; Translations: [Encounter for attention to other artificial openings of urinary tract] Chronic Genitourinary symptoms and ill-defined conditions (9 sources) Retention of urine, unspecified; Translations: [Hematuria, unspecified] Onset: 2 Episodic Headache; including migraine (1 source) Headache; including migraine; Translations: [HEADACHE UNSPECIFIED] Onset: 2 Hyperplasia of prostate (6 sources) Benign prostatic hypertrophy with outflow obstruction; Translations: [Benign prostatic hyperplasia with lower urinary tract symptoms] Onset: 2 Chronic Hypertension with complications and secondary hypertension (1 source) Renal hypertension; Translations: [Hypertension secondary to other renal disorders] 08-28-2023 Chronic Immunity disorders (16 sources) Immunosuppression; Translations: [Immunodeficiency, unspecified] Onset: 2 Chronic Osteoporosis (1 source) Osteoporosis; Translations: [Other osteoporosis without current pathological fracture] Onset: 4 09-08-2024 Chronic Other aftercare (3 sources) Transplant follow-up; [...] sources) Taking high risk medication; Translations: [Other exterminator helper (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] Episodic Other aftercare (1 source) Patient encounter status; Translations: [Encounter for therapeutic drug level monitoring] 06-17-2024 Episodic Other and ill-defined heart disease (4 sources) Dysfunction of papillary muscle; Translations: [Other ill-defined heart diseases] Onset: 3 11-03-2023 Chronic Other and ill-defined heart disease (1 source) Diastolic dysfunction; Translations: [Other ill-defined heart diseases] Onset: 4 02-11-2024 Chronic Other diseases of kidney and ureters (4 sources) Hydronephrosis; Translations: [Hydronephrosis with ureteral stricture, not elsewhere classified] Episodic Other diseases of kidney and ureters (1 source) Urinary tract obstruction; Translations: [Other obstructive and reflux uropathy] Onset: 4 Episodic Other gastrointestinal disorders (1 source) Constipation; Translations: [Other constipation] Onset: 4 08-23-2024 Episodic Other liver diseases (3 sources) Cirrhosis of liver; Translations: [Unspecified cirrhosis of liver] Onset: 4 02-11-2024 Chronic Other liver diseases (1 source) Cirrhosis [...] [Liver disease, unspecified] Onset: 4 Chronic Other liver diseases (1 source) Portal hypertension; Translations: [Portal hypertension] Onset: 4 02-11-2024 Chronic Other lower respiratory disease (1 source) Hypoxia; Translations: [Hypoxemia] 09-10-2023 Episodic Other nervous system disorders (4 sources) Peripheral nerve disease ; Translations: [Polyneuropathy, unspecified] Onset: 4 12-03-2023 Chronic Other nutritional; endocrine; and metabolic disorders (20 sources) Obese class I; Translations: [Obesity, unspecified] Onset: 0 04-09-2020 Chronic Other nutritional; endocrine; and metabolic disorders (1 source) Obesity; Translations: [Obesity, unspecified] Onset: 3 11-03-2023 Chronic Other nutritional; endocrine; and metabolic disorders (4 sources) Body mass index 30+ - obesity; Translations: [Obesity, unspecified] Onset: 3 01-06-2024 Chronic Other screening for suspected conditions (not mental disorders or infectious disease) (1 source) CT of chest abnormal; Translations: [Abnormal findings on diagnostic imaging of other specified body structures] 09-02-2023 Chronic Other screening for suspected conditions [...] Onset: 9 04-12-2020 Chronic Residual codes; unclassified (5 sources) Obstructive sleep apnea syndrome; Translations: [Obstructive sleep apnea (adult) (pediatric)] Onset: 3 11-21-2023 Chronic Residual codes; unclassified (1 source) H/O: tissue/organ recipient; Translations: [Transplanted organ and tissue status, unspecified] Onset: 3 02-11-2024 Chronic Residual codes; unclassified (1 source) Other general symptoms and signs; Translations: [Other general symptoms] 08-25-2023 Episodic Respiratory failure; insufficiency; arrest (adult) (1 [...] Other Problems Problem Classification Problem Date Documented Da te Episodic/Chronic Abdominal hernia (1 source) Umbilical hernia; Translations: [Umbilical hernia without obstruction or gangrene] Onset: 4 02-11-2024 Episodic Abdominal pain (4 sources) Generalized abdominal pain; Translations: [Generalized abdominal pain] Onset: 3 11-03-2023 Episodic Acute and unspecified renal failure (20 sources) Acute injury of kidney; Translations: [Acute kidney failure, unspecified] Onset: 2 Resolved: 4 Episodic Alcohol-related disorders (20 sources) Alcoholic cirrhosis; Translations: [Alcoholic cirrhosis of liver without ascites] Onset: 8 Resolved: 4 10-05-2018 Chronic Allergic reactions (1 source) Eczema; Translations: [Dermatitis, unspecified] Onset: 4 02-25-2024 Episodic Calculus of urinary tract (6 sources) Calculus of ureter; Translations: [Kidney stone] Onset: 2 11-03-2023 Episodic Complication of device; implant or graft (5 sources) Complication of dialysis; Translations: [Unspecified complication of cardiac and vascular prosthetic device, implant and graft, initial encounter] Onset: 3 11-03-2023 Episodic Complications of surgical procedures or medical care (4 sources) Malfunction of incontinent external stoma of urinary tract; Translations: [MALFUNC INCONT EXT STOMA URIN TRACT] Onset: 2 Episodic Deficiency and other anemia (1 source) Anemia, unspecified; Translations: [ANEMIA UNSPECIFIED] Onset: 2 Episodic Deficiency and other anemia (4 sources) Anemia; Translations: [Anemia, unspecified] Onset: 3 11-03-2023 Episodic Diabetes mellitus without complication (4 sources) Hyperglycemia; Translations: [Hyperglycemia, unspecified] Onset: 3 11-03-2023 Episodic Fever of unknown origin (20 sources) Fever; Translations: [Fever, unspecified] Onset: 3 Resolved: 3 08-28-2023 Episodic Gastrointestinal hemorrhage (5 sources) Gastrointestinal hemorrhage; Translations: [Gastrointestinal hemorrhage, unspecified] Onset: 3 Resolved: 4 11-03-2023 Episodic Malaise and fatigue (1 source) Asthenia; Translations: [Weakness] Onset: 4 02-18-2024 Episodic Mood disorders (1 source) Mood disorders Onset: 4 02-11-2024 Mycoses (20 sources) Histoplasmosis; Translations: [Histoplasmosis, unspecified] Onset: 3 09-10-2023 Episodic Nausea and vomiting (20 sources) Nausea and vomiting; Translations: [Nausea with vomiting, unspecified] Onset: 0 05-10-2020 Episodic Other aftercare (1 source) Other care home (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; Translations: [OTH SENIOR CARE 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 THERAPY] Onset: 2 Episodic Other aftercare (1 source) [facility] (current) use of aspirin; Translations: [SENIOR CARE CURRENT USE OF ASPIRIN] Onset: 2 Episodic Other circulatory disease (4 sources) Other specified symptoms and signs involving the circulatory and respiratory systems; Translations: [OTH SPEC SX SIGNS INVLV CIRC RS] Onset: 2 Episodic Other circulatory disease (1 source) Carotid bruit; Translations: [Other specified symptoms and signs involving the circulatory and respiratory systems] Onset: 4 09-05-2024 Episodic Other diseases of kidney and ureters (1 source) Other obstructive and reflux uropathy; Translations: [OTHER OBSTRUCTIVE AND REFLUX UROPATHY] Onset: 2 Episodic Other diseases of kidney and ureters (4 sources) Other hydronephrosis; Translations: [OTHER HYDRONEPHROSIS] Onset: 2 Episodic Other diseases of kidney and ureters (1 source) Hydronephrosis with renal and ureteral calculous obstruction; Translations: [HYDRONPHROS RENL AND URETRL CALCUL OBST] Onset: 2 Episodic Other liver diseases (20 sources) Hepatic encephalopathy; Translations: [Hepatic failure, unspecified without coma] Onset: 8 10-19-2018 Episodic Other liver diseases (20 sources) Hepatic failure; Translations: [Hepatic failure, unspecified without coma] Onset: 0 04-09-2020 Episodic Other lower respiratory disease (6 sources) Dyspnea; Translations: [Shortness of breath] Onset: 4 01-06-2024 Episodic Other lower respiratory disease (1 source) Shortness of breath; Translations: [Shortness of breath] Onset: 4 Episodic Other nervous system disorders (5 sources) Tremor; Translations: [Tremor, unspecified] Onset: 3 11-03-2023 Episodic Other nutritional; endocrine; and metabolic disorders (1 source) Body mass index 25-29 - overweight; Translations: [Overweight] Onset: 4 04-18-2024 Episodic Pancreatic disorders (not diabetes) (1 source) Pancreatitis; Translations: [Acute pancreatitis without necrosis or infection, unspecified] Onset: 4 Resolved: 4 02-11-2024 Episodic Pleurisy; pneumothorax; pulmonary collapse (20 sources) Pleural effusion; Translations: [Pleural effusion, not elsewhere classified] Onset: 4 01-16-2024 Episodic Residual codes; unclassified (1 source) Ill-defined and unknown cause of mortality; Translations: [ILL-DEFINED UNKNOWN CAUSE MORTALITY] Onset: 2 Episodic Residual codes; unclassified (4 sources) Bilateral lower limb edema; Translations: [Localized edema] Onset: 4 01-06-2024 Episodic Residual codes; unclassified (3 sources) Insomnia; Translations: [Insomnia, unspecified] Onset: 4 01-06-2024 Episodic Screening and history of mental health and substance abuse codes (1 source) Personal history of nicotine dependence; Translations: [PERSONAL HISTORY OF NICOTINE DEPEND] Onset: 2 Episodic Unclassified (1 source) Other pericardial effusion (noninflammatory); Translations: [Other pericardial effusion (noninflammatory)] Onset: 4 Results Test Name Value Interpretation Reference Range Facility ALL CBC WITH AUTO DIFFon BASOPHILS ABSOLUTE AUTO 0 [facility] Basophils/100 WBC (Bld) 0.6 % 0.2 - 2.0 % [facility] Eosinophils/100 WBC (Bld) 2.9 % 0.9 - 7.0 % [facility] Erythrocyte distribution width (RBC) [Ratio] 12.5 % 11.0 - 15.0 % [facility] Hematocrit (Bld) [Volume fraction] 47.1 % 42.0 - 54.0 % [facility] Hemoglobin (Bld) [Mass/Vol] 15.2 g/dL 14.0 - 18.0 g/dL [facility] IMMATURE GRANULOCYTES ABS AUTO 0.01 [facility] Immature granulocytes/100 WBC (Bld) 0.2 % 0.0 - 0.5 % [facility] Interpretation and review of laboratory results Abnormal [facility] LYMPHOCYTES ABSOLUTE AUTO 1.6 [facility] Lymphocytes/100 WBC (Bld) 32.7 % 20.5 - 60.0 % [facility] MCH (RBC) [Entitic mass] 28.5 pg 25.9 - 34.0 pg [facility] MCHC (RBC) [Mass/Vol] 32.3 g/dL 29.9 - 35.2 g/dL [facility] MCV (RBC) [Entitic vol] 88.4 fL 80.0 - 94.0 fL [facility] MONOCYTES ABSOLUTE AUTO 0.4 [facility] Monocytes/100 WBC (Bld) 8.5 % 1.7 - 12.0 % [facility] NEUTROPHILS ABSOLUTE AUTO 2.6 [facility] Neutrophils/100 WBC (Bld) 55.1 % 43.0 - 75.0 % [facility] Platelet mean volume (Bld) [Entitic vol] 9.3 fL Low 9.5 - 13.5 fL [facility] TB EO # 0.1 [facility] TB PLT 225 [facility] TB RBC 5.33 [facility] WBC 4.8 [facility] 36on 06-01-2024 36 Regarding echo performed on 05/18/2024: MD Cinda Batres MA Please tell him the echo was ok and showed a small residual fluid around the heart. This is significant improvement from before. Follow up as planned. Patient informed and he verbalized understanding. Normal [facility] Office Visiton 05-13-2024 Follow-up visit [id number] George Styles 1970 M Date Provider Department Center 05/13/2024 [facility]MIGUEL CARDONA BESSY [facility] Family History Problem Relation Age of Onset Coronary artery disease Mother Coronary artery disease Father Family Status - Relation Status Age at Mother Father Level of Service:75573 [place] OFFICE/OUTPATIENT ESTABLISHED LOW MDM 20 MIN Reason for Visit and Comments: Follow-up [355566] - Yearly follow up Normal [facility] B-TYPE NATRIURETIC PEPTIDE ( BRAIN)on 02-26-2024 Interpretation and review of laboratory results Normal [facility] Natriuretic peptide B (Bld) [Mass/Vol] 72 pg/mL 0 - 100 pg/mL [facility] Natriuretic peptide B (Bld) [Mass/Vol] 72 pg/mL Normal 0-100 [facility] Comment on above: Performed By: #### C HM7, HFP, MGO #### [facility] (DEFAULT) [address] [place] [address] CHEM 6 (LYTES, BUN CREA)on 0 02-26-2024 Anion gap [Moles/Vol] 13 mmol/L 7 - 17 mmol/L [facility] Chloride [Moles/Vol] 107 mmol/L 98 - 10 8 mmol/L [facility] CO2 [Moles/Vol] 25 mmol/L 21 - 31 mmol/L [facility] Creatinine [Mass/Vol] 1.23 mg/dL 0.70 - 1.30 mg/dL [facility] eGFR, CKD-EPI, Male 71 - PINF [facility] Comment on above: Reported eGFR is bas ed on the CKD-EPI 2020 equation using creatinine, age, and sex. Potassium [Moles/Vol] 4.2 mmol/L 3.5 - 5.0 mmol/L [facility] Sodium [Moles/Vol] 141 mmol/L 135 - 145 mmol/L [facility] Urea nitrogen [Mass/Vol] 17 mg/dL 7 - 25 mg/dL [facility] Urea nitrogen/Creatinine [Mass ratio] 14 mg[facility] Anion gap [Moles/Vol] 13 mmol/L Normal 7-17 [facility] Comment on above: Performed By: #### C Tray, CHM7, HFP, IPB, MGO #### [facility] (DEFAULT) [address] [place] [id number] Chloride [Moles/Vol] 107 mmol/L Normal 98-108 [facility] Comment on above: Performed By: #### C A, CHM7, HFP, IPB, MGO #### [facility] (DEFAULT) [address] [place] [id number] CO2 [Moles/Vol] 25 mmol/L Normal 21-31 [facility] Comment on above: Performed By: #### C A, CHM7, HFP, IPB, MGO #### [facility] (DEFAULT) [address] [place] [phone] Creatinine [Mass/Vol] 1.23 mg/dL Normal 0.70-1.30 [facility] Comment on above: Performed By: #### C A, CHM7, HFP, IPB, MGO #### [facility] (DEFAULT) [address] [place] [id number] GFR/1.73 sq M.predicted among non-blacks MDRD (S/P/Bld) [Vol rate/Area] 70 mL/min/{1.73_m2} Normal >=60 [facility] Comment on above: Result Comment: Repo rted eGFR is based on the CKD-EPI 2020 equation using creatinine, age, and sex. Performed By: #### C A, CHM7, HFP, IPB, MGO #### [facility] (DEFAULT) [address] [place] [address] 27043 Potassium [Moles/Vol] 4.2 mmol/L Normal 3.5-5.0 [facility] Comment on above: Performed By: #### C A, CHM7, HFP, IPB, MGO #### [facility] (DEFAULT) [address] [place] [address] 74844 Sodium [Moles/Vol] 141 mmol/L Normal 135-145 [facility] Comment on above: Performed By: #### C A, CHM7, HFP, IPB, MGO #### [facility] (DEFAULT) [address] [place] [address] 31972 Urea nitrogen [Mass/Vol] 17 mg/dL Normal 7-25 [facility] Comment on above: Performed By: #### C A, CHM7, HFP, IPB, MGO #### [facility] (DEFAULT) [address] [place] [address] 42633 Urea nitrogen/Creatinine [Mass ratio] 14 mg/mg Normal [facility] Comment on above: Performed By: #### C A, CHM7, HFP, IPB, MGO #### [facility] (DEFAULT) [address] [place] [address] 27086 CBC,PLATELETSon 01-23-2024 Erythrocyte distribution width (RBC) [Ratio] 14.2 % 10.9 - 14.3 % [facility] Hematocrit (Bld) [Volume fraction] 37.0 % Low 39.6 - 48.8 % [facility] Hemoglobin (Bld) [Mass/Vol] 12.0 g/dL Low 13.4 - 16.8 g/dL [facility] Interpretation and review of laboratory results Abnormal [facility] MCH (RBC) [Entitic mass] 28.6 pg 26.1 - 33.3 pg [facility] MCHC (RBC) [Mass/Vol] 32.4 g/dL 31.9 - 36.5 g/dL [facility] MCV (RBC) [Entitic vol] 88.1 fL 79.0 - 94.5 fL [facility] Platelet mean volume (Bld) [Entitic vol] 10.4 fL 8.7 - 12.3 fL [facility] Platelets (Bld) [#/Vol] 170 10*3/uL 146 - 337 K/uL [facility] RBC (Bld) [#/Vol] 4.20 10*6/uL Low [facility] WBC (Bld) [#/Vol] 3.70 10*3/uL Low 3.73 - 10. 10 K/uL [facility] Hematocrit (Bld) [Volume fraction] 37.0 % Low 39.6-48.8 [facility] Comment on above: Performed By: #### C HMJessica, TAVO, MGO #### [facility] (DEFAULT) [address] [address] Hemoglobin (Bld) [Mass/Vol] 12.0 g/dL Low 13.4-16.8 [facility] Comment on above: Performed By: #### Chinedu HMJessica, HFP, MGO #### [facility] (DEFAULT) [address] [place] [address] 13438 MCV (RBC) [Entitic vol] 88.1 fL Normal 79.0-94.5 [facility] Comment on above: Performed By: #### Chinedu HM7, HFP, MGO #### [facility] (DEFAULT) [address] [place] [address] 49605 Mean Cell Hgb 28.6 pg Normal 26.1-33.3 [facility] Comment on above: Performed By: #### C HM7, HFP, MGO #### [facility] (DEFAULT) [address] [place] [address] 15217 Mean Cell Hgb Conc 32.4 g/dL Normal 31.9-36.5 [facility] Comment on above: Performed By: #### C HM7, HFP, MGO #### [facility] (DEFAULT) [address] [place] [address] 01185 Platelet mean volume (Bld) [Entitic vol] 10.4 fL Normal 8.7-12.3 [facility] Comment on above: Performed By: #### C HM7, HFP, MGO #### [facility] (DEFAULT) [address] [place] [address] 46637 Platelets (Bld) [#/Vol] 170 10*3/uL Normal 146-337 [facility] Comment on above: Performed By: #### C HM7, HFP, MGO #### [facility] (DEFAULT) [address] [place] [address] 59289 RBC (Bld) [#/Vol] 4.20 10*6/uL Low 4.38-5.83 [facility] Comment on above: Performed By: #### C HM7, HFP, MGO #### [facility] (DEFAULT) [address] [place] [address] 46879 RBC Distribution 14.2 % Normal 10.9-14.3 [facility] Comment on above: Performed By: #### C HM7, HFP, MGO #### [facility] (DEFAULT) [address] [place] [address] 03649 WBC (Bld) [#/Vol] 3.70 10*3/uL Low 3.73-10.10 [facility] Comment on above: Performed By: #### C HM7, HFP, MGO #### [facility] (DEFAULT) [address] [place] [address] CHEM 7 (LYTES,BUN,CREA,GLUC) on 01-23-2024 Anion gap [Moles/Vol] 14 mmol/L 7 - 17 mmol/L [facility] Chloride [Moles/Vol] 105 mmol/L 98 - 10 8 mmol/L [facility] CO2 [Moles/Vol] 25 mmol/L 21 - 31 mmol/L [facility] Creatinine [Mass/Vol] 1.32 mg/dL High 0.70 - 1.30 mg/dL [facility] eGFR, CKD-EPI, Male 66 - PINF [facility] Comment on above: Reported eGFR is bas ed on the CKD-EPI 2020 equation using creatinine, age, and sex. Glucose [Mass/Vol] 94 mg/dL 70 - 99 mg/dL [facility] Osmolality Calc [Osmolality] 296 [facility] Potassium [Moles/Vol] 3.8 mmol/L 3.5 - 5.0 mmol/L [facility] Sodium [Moles/Vol] 140 mmol/L 135 - 145 mmol/L [facility] Urea nitrogen [Mass/Vol] 23 mg/dL 7 - 25 mg/dL [facility] Urea nitrogen/Creatinine [Mass ratio] 17 mg/mg [facility] Anion gap [Moles/Vol] 14 mmol/L Normal 7-17 [facility] Comment on above: Performed By: #### C JASMYNE, TAVO, MGO #### [facility] (DEFAULT) [address] [place] [address] Chloride [Moles/Vol] 105 mmol/L Normal 98-108 [facility] Comment on above: Performed By: #### Chinedu MEDLEY, HFP, MGO #### [facility] (DEFAULT) [address] [place] [address] CO2 [Moles/Vol] 25 mmol/L Normal 21-31 [facility] Comment on above: Performed By: #### Chinedu HMJessica, HFP, MGO #### [facility] (DEFAULT) [address] [place] [address] 53468 Creatinine [Mass/Vol] 1.32 mg/dL High 0.70-1.30 [facility] Comment on above: Performed By: #### C HM7, HFP, MGO #### [facility] (DEFAULT) [address] [place] [address] 31777 GFR/1.73 sq M.predicted among non-blacks MDRD (S/P/Bld) [Vol rate/Area] 65 mL/min/{1.73_m2} Normal >=60 [facility] Comment on above: Result Comment: Repo rted eGFR is based on the CKD-EPI 2020 equation using creatinine, age, and sex. Performed By: #### C HM7, HFP, MGO #### [facility] (DEFAULT) [address] [place] [address] 05466 Glucose [Mass/Vol] 94 mg/dL Normal 70-99 [facility] Comment on above: Performed By: #### C HM7, HFP, MGO #### [facility] (DEFAULT) [address] [place] [address] 12443 Osmolality [Osmolality] 296 mosm/kg Normal 278-305 [facility] Comment on above: Performed By: #### C HM7, HFP, MGO #### [facility] (DEFAULT) [address] [place] [address] 69938 Potassium [Moles/Vol] 3.8 mmol/L Normal 3.5-5.0 [facility] Comment on above: Performed By: #### C HM7, HFP, MGO #### [facility] (DEFAULT) [address] [place] [address] 52292 Sodium [Moles/Vol] 140 mmol/L Normal 135-145 [facility] Comment on above: Performed By: #### C HM7, HFP, MGO #### [facility] (DEFAULT) [address] [place] [address] 47651 Urea nitrogen [Mass/Vol] 23 mg/dL Normal 7-25 [facility] Comment on above: Performed By: #### C HM7, TAVO, MGO #### [facility] (DEFAULT) [address] [place] [address] Urea nitrogen/Creatinine [Mass ratio] 17 mg/mg Normal [facility] Comment on above: Performed By: #### C HM7, TAVO, MGO #### [facility] (DEFAULT) [address] [place] [address] GLUCOSE POCon 01-23-2024 Glucose [Mass/Vol] 88 mg/dL 70 - 99 mg/dL [facility] POC Sample Type [facility] Test performed at address of the patient encounter. [facility] Glucose [Mass/Vol] 191 mg/dL High 70 - 99 mg/dL [facility] Interpretation and review of laboratory results Abnormal [facility] POC Sample Type [facility] Test performed at address of the patient encounter. [facility] HEPATIC FUNCTION PANELon Albumin [Mass/Vol] 3.9 g/dL 3.5 - 5.0 g/dL [facility] ALP [Catalytic activity/Vol] 83 U/L 32 - 126 U/L [facility] ALT [Catalytic activity/Vol] 9 U/L Low 10 - 52 U/L [facility] AST [Catalytic activity/Vol] 17 U/L 10 - 39 U/L [facility] Bilirubin [Mass/Vol] 1.6 mg/dL High NINF - 1.5 mg/dL [facility] Bilirubin.direct [Mass/Vol] 0.4 mg/dL High NINF - 0.3 mg/dL [facility] Protein [Mass/Vol] 6.6 g/dL 6.4 - 8.3 g/dL [facility] Albumin [Mass/Vol] 3.9 g/dL Normal 3.5-5.0 [facility] Comment on above: Performed By: #### C HM7, HFP, MGO #### [facility] (DEFAULT) [address] [place] [address] 76251 ALP [Catalytic activity/Vol] 83 U/L Normal 32-126 [facility] Comment on above: Performed By: #### Chinedu HM7, HFP, MGO #### [facility] (DEFAULT) [address] [place] [address] 55758 ALT [Catalytic activity/Vol] 9 U/L Low 10-52 [facility] Comment on above: Performed By: #### C HM7, HFP, MGO #### [facility] (DEFAULT) [address] [place] [address] 28493 AST [Catalytic activity/Vol] 17 U/L Normal 10-39 [facility] Comment on above: Performed By: #### Chinedu HM7, HFP, MGO #### [facility] (DEFAULT) [address] [place] [address] 75551 Bilirubin [Mass/Vol] 1.6 mg/dL High <1.5 [facility] Comment on above: Performed By: #### Chinedu HM7, HFP, MGO #### [facility] (DEFAULT) [address] [place] [address] 76237 Bilirubin.indirect [Mass/Vol] 0.4 mg/dL High <0.3 [facility] Comment on above: Performed By: #### Chinedu HM7, HFP, MGO #### [facility] (DEFAULT) [address] [place] [address] 35891 Protein [Mass/Vol] 6.6 g/dL Normal 6.4-8.3 [facility] Comment on above: Performed By: #### C HM7, HFP, MGO #### [facility] (DEFAULT) [address] [place] [address] 42998 ITRACONAZOLE LEVELon 024 Hydroxyitraconazole [Mass/Vol] 7.6 mcg/mL [facility] Comment on above: REFERENCE VALUE No therapeutic range established; activity and serum concentration are similar to parent drug. ADDITIONAL INFORMATION This test was developed and its performance characteristics determined by [facility] in a manner consistent with CLIA requirements. This test has not been cleared or approved by the U.S. Food and Drug Administration. Test Performed by: [facility] [place] [address] [place] [address] [employer] Seam Operator: Rosendo Bose M.D. Ph.D.; CLIA# [id number] Itraconazole [Mass/Vol] 6.0 mcg/mL [facility] Comment on above: REFERENCE VALUE >0.5 (localized infection), >1.0 (systemic infection) [facility] MAGNESIUMon 01-23-2024 Interpretation and review of laboratory results Normal [facility] Magnesium [Mass/Vol] 1.8 mg/dL 1.6 - 2 .6 mg/dL [facility] Magnesium [Mass/Vol] 1.8 mg/dL Normal 1.6-2.6 [facility] Comment on above: Performed By: #### C HM7, HFP, MGO #### [facility] (DEFAULT) [address] [place] [address] No Panel Informationon 01-23 Interpretation and review of laboratory results Abnormal [facility] TACROLIMUS LEVEL, TROUGH (WI E DRUG LEVEL)on 01-23-2024 Interpretation and review of laboratory results Normal [facility] Tacrolimus (Bld) [Mass/Vol] 7.0 ng/mL Bone Marrow Transplant: 4.0-12.0, Therapeutic: 5.0-15.0 [facility] Method performed is a chemiluminescent microparticle immunoasssay on the [employer] i2000. The range is based on experience at [facility] and users should be aware that target concentrations vary widely depending on concomitant therapy, time post-transplant, and desired degree of immunosuppression. [facility] Tacrolimus, Trough 7.0 ng/mL Normal Bone Susana ow Transplant: 4.0-12.0, Therapeutic: 5.0-15.0 [facility] Comment on above: Order Comment: Plejoan e draw at specified interval PRIOR to dose. Do not hold dose to wait for level. Specimens batched twice per day, (M-F) and once per day weekendsMethod performed is a chemiluminescent microparticle immunoasssay on the [employer] i2000.The range is based on experience at [facility] and users should be aware that target concentrations vary widely depending on concomitant therapy, time post-transplant, and desired degree of immunosuppression. Performed By: #### C A, CHM7, HFP, IPB, MGO #### [facility] (DEFAULT) [address] [place] [address] CARDIAC RHYTHM (SCANNED)on 0 01-22-2024 [facility] CBC,PLATELETSon 01-22-2024 Erythrocyte distribution width (RBC) [Ratio] 14.1 % 10.9 - 14.3 % [facility] Hematocrit (Bld) [Volume fraction] 41.5 % 39.6 - 48.8 % [facility] Hemoglobin (Bld) [Mass/Vol] 13.3 g/dL Low 13.4 - 16.8 g/dL [facility] Interpretation and review of laboratory results Abnormal [facility] MCH (RBC) [Entitic mass] 27.8 pg 26.1 - 33.3 pg [facility] MCHC (RBC) [Mass/Vol] 32.0 g/dL 31.9 - 36.5 g/dL [facility] MCV (RBC) [Entitic vol] 86.8 fL 79.0 - 94.5 fL [facility] Platelet mean volume (Bld) [Entitic vol] 10.5 fL 8.7 - 12.3 fL [facility] Platelets (Bld) [#/Vol] 186 10*3/uL 146 - 337 K/uL [facility] RBC (Bld) [#/Vol] 4.78 10*6/uL [facility] WBC (Bld) [#/Vol] 3.74 10*3/uL 3.73 - 10. 10 K/uL [facility] Hematocrit (Bld) [Volume fraction] 41.5 % Normal 39.6-48.8 [facility] Comment on above: Performed By: #### C HM7, HFP, MGO #### [facility] (DEFAULT) [address] [place] [address] 98620 Hemoglobin (Bld) [Mass/Vol] 13.3 g/dL Low 13.4-16.8 [facility] Comment on above: Performed By: #### Chinedu HM7, HFP, MGO #### [facility] (DEFAULT) [address] [place] [address] 64287 MCV (RBC) [Entitic vol] 86.8 fL Normal 79.0-94.5 [facility] Comment on above: Performed By: #### C HM7, HFP, MGO #### [facility] (DEFAULT) [address] [place] [address] 87935 Mean Cell Hgb 27.8 pg Normal 26.1-33.3 [facility] Comment on above: Performed By: #### Chinedu HM7, HFP, MGO #### [facility] (DEFAULT) [address] [place] [address] 25923 Mean Cell Hgb Conc 32.0 g/dL Normal 31.9-36.5 [facility] Comment on above: Performed By: #### C HM7, HFP, MGO #### [facility] (DEFAULT) [address] [place] [address] 39555 Platelet mean volume (Bld) [Entitic vol] 10.5 fL Normal 8.7-12.3 [facility] Comment on above: Performed By: #### C HM7, HFP, MGO #### [facility] (DEFAULT) [address] [place] [address] 81026 Platelets (Bld) [#/Vol] 186 10*3/uL Normal 146-337 [facility] Comment on above: Performed By: #### C HM7, HFP, MGO #### [facility] (DEFAULT) [address] [place] [address] 70716 RBC (Bld) [#/Vol] 4.78 10*6/uL Normal 4.38-5.83 [facility] Comment on above: Performed By: #### C HM7, HFP, MGO #### [facility] (DEFAULT) [address] [place] [address] 48392 RBC Distribution 14.1 % Normal 10.9-14.3 [facility] Comment on above: Performed By: #### Chinedu HM7, HFP, MGO #### [facility] (DEFAULT) [address] [place] [address] 37985 WBC (Bld) [#/Vol] 3.74 10*3/uL Normal 3.73-10.10 [facility] Comment on above: Performed By: #### Chinedu HM7, HFP, MGO #### [facility] (DEFAULT) [address] [place] [address] 81006 CHEM 7 (LYTES,BUN,CREA,GLUC) on 01-22-2024 Anion gap [Moles/Vol] 13 mmol/L 7 - 17 mmol/L [facility] Chloride [Moles/Vol] 109 mmol/L High 98 - 10 8 mmol/L [facility] CO2 [Moles/Vol] 23 mmol/L 21 - 31 mmol/L [facility] Creatinine [Mass/Vol] 1.10 mg/dL 0.70 - 1.30 mg/dL [facility] eGFR, CKD-EPI, Male 81 - PINF [facility] Comment on above: Reported eGFR is bas ed on the CKD-EPI 2020 equation using creatinine, age, and sex. Glucose [Mass/Vol] 84 mg/dL 70 - 99 mg/dL [facility] Interpretation and review of laboratory results Abnormal [facility] Osmolality Calc [Osmolality] 295 [facility] Potassium [Moles/Vol] 4.0 mmol/L 3.5 - 5.0 mmol/L [facility] Sodium [Moles/Vol] 141 mmol/L 135 - 145 mmol/L [facility] Urea nitrogen [Mass/Vol] 16 mg/dL 7 - 25 mg/dL [facility] Urea nitrogen/Creatinine [Mass ratio] 15 mg/mg [facility] Anion gap [Moles/Vol] 13 mmol/L Normal 7-17 [facility] Comment on above: Performed By: #### C HM7, HFP, MGO #### [facility] (DEFAULT) [address] [place] [address] 03980 Chloride [Moles/Vol] 109 mmol/L High 98-108 [facility] Comment on above: Performed By: #### C HM7, HFP, MGO #### [facility] (DEFAULT) [address] [place] [address] 55941 CO2 [Moles/Vol] 23 mmol/L Normal 21-31 [facility] Comment on above: Performed By: #### Chinedu HM7, HFP, MGO #### [facility] (DEFAULT) [address] [place] [address] 66106 Creatinine [Mass/Vol] 1.10 mg/dL Normal 0.70-1.30 [facility] Comment on above: Performed By: #### C HM7, HFP, MGO #### [facility] (DEFAULT) [address] [place] [address] 56591 GFR/1.73 sq M.predicted among non-blacks MDRD (S/P/Bld) [Vol rate/Area] 81 mL/min/{1.73_m2} Normal >=60 [facility] Comment on above: Result Comment: Repo rted eGFR is based on the CKD-EPI 2020 equation using creatinine, age, and sex. Performed By: #### C HMJessica, HFP, MGO #### [facility] (DEFAULT) [address] [place] [address] 24393 Glucose [Mass/Vol] 84 mg/dL Normal 70-99 [facility] Comment on above: Performed By: #### C HM7, HFP, MGO #### [facility] (DEFAULT) [address] [place] [address] 70657 Osmolality [Osmolality] 295 mosm/kg Normal 278-305 [facility] Comment on above: Performed By: #### C HM7, HFP, MGO #### [facility] (DEFAULT) [address] [place] [address] 43045 Potassium [Moles/Vol] 4.0 mmol/L Normal 3.5-5.0 [facility] Comment on above: Performed By: #### C HMJessica, HFP, MGO #### [facility] (DEFAULT) [address] [place] [address] 93589 Sodium [Moles/Vol] 141 mmol/L Normal 135-145 [facility] Comment on above: Performed By: #### Chinedu HM7, HFP, MGO #### [facility] (DEFAULT) [address] [place] [address] 20840 Urea nitrogen [Mass/Vol] 16 mg/dL Normal 7-25 [facility] Comment on above: Performed By: #### C HM7, HFP, MGO #### [facility] (DEFAULT) [address] [place] [address] 50031 Urea nitrogen/Creatinine [Mass ratio] 15 mg/mg Normal [facility] Comment on above: Performed By: #### C HM7, HFP, MGO #### [facility] (DEFAULT) [address] [place] [address] 38293 MAGNESIUMon 01-22-2024 Interpretation and review of laboratory results Normal [facility] Magnesium [Mass/Vol] 2.0 mg/dL 1.6 - 2 .6 mg/dL [facility] Magnesium [Mass/Vol] 2.0 mg/dL Normal 1.6-2.6 [facility] Comment on above: Performed By: #### M MERLE CHM7 #### [facility] (DEFAULT) [address] [place] [address] 43164 No Panel Informationon 01-22 [facility] PT,INR,PTTon 01-22-2024 aPTT Coag (PPP) [Time] 29.2 s [facility] INR Coag (Bld) [Relative time] 1.1 {INR} 0.9 - 1.1 [facility] Interpretation and review of laboratory results Abnormal [facility] PT Coag (PPP) [Time] 14.3 s High [facility] aPTT Coag (Bld) [Time] 29.2 s Normal 24.0-34.3 [facility] Comment on above: Performed By: #### P TPTT #### [facility] (DEFAULT) [address] [place] [address] 51086 INR Coag (PPP) [Relative time] 1.1 {INR} Normal 0.9-1.1 [facility] Comment on above: Performed By: #### P TPTT #### [facility] (DEFAULT) [address] [place] [address] 81995 PT Coag (PPP) [Time] 14.3 s High 11.9-14.2 [facility] Comment on above: Performed By: #### P TPTT #### [facility] (DEFAULT) [address] [place] [address] 83920 TACROLIMUS LEVEL, TROUGH (WI E DRUG LEVEL)Ordered By: Sheree Jensen on 01-22-2024 Interpretation and review of laboratory results Normal [facility] Tacrolimus (Bld) [Mass/Vol] 7.9 ng/mL Bone Marrow Transplant: 4.0-12.0, Therapeutic: 5.0-15.0 [facility] Method performed is a chemiluminescent microparticle immunoasssay on the [employer] i2000. The range is based on experience at [facility] and users should be aware that target concentrations vary widely depending on concomitant therapy, time post-transplant, and desired degree of immunosuppression. [facility] TACROLIMUS LEVEL, TROUGH (WI E DRUG LEVEL)on 01-22-2024 Tacrolimus, Trough 7.9 ng/mL Normal Bone Susana ow Transplant: 4.0-12.0, Therapeutic: 5.0-15.0 [facility] Comment on above: Order Comment: Pleas e draw at specified interval PRIOR to dose. Do not hold dose to wait for level. Specimens batched twice per day, (M-F) and once per day weekendsMethod performed is a chemiluminescent microparticle immunoasssay on the [employer] i2000.The range is based on experience at [facility] and users should be aware that target concentrations vary widely depending on concomitant therapy, time post-transplant, and desired degree of immunosuppression. Performed By: #### C A, CHM7, HFP, IPB, MGO #### [facility] (DEFAULT) [address] [place] [address] TYPE AND SCREENon 01-22-2024 ABO/RH(D) TYPE Positive [facility] ABO/RH(D) TYPE Positive Normal [facility] Comment on above: Performed By: #### C HM7, HFP, MGO #### [facility] (DEFAULT) [address] [place] [address] [place] Unspecified body regionOr dered By: Unassigned Pacs on 01-22-2024 [facility] Work Phone: [place] Unspecified body regionon 01-22-2024 Radiology Study observation (narrative) [facility] CBC,PLATELETSon 01-21-2024 Erythrocyte distribution width (RBC) [Ratio] 14.0 % 10.9 - 14.3 % [facility] Hematocrit (Bld) [Volume fraction] 39.4 % Low 39.6 - 48.8 % [facility] Hemoglobin (Bld) [Mass/Vol] 12.7 g/dL Low 13.4 - 16.8 g/dL [facility] Interpretation and review of laboratory results Abnormal [facility] MCH (RBC) [Entitic mass] 28.0 pg 26.1 - 33.3 pg [facility] MCHC (RBC) [Mass/Vol] 32.2 g/dL 31.9 - 36.5 g/dL [facility] MCV (RBC) [Entitic vol] 87.0 fL 79.0 - 94.5 fL [facility] Platelet mean volume (Bld) [Entitic vol] 10.2 fL 8.7 - 12.3 fL [facility] Platelets (Bld) [#/Vol] 157 10*3/uL 146 - 337 K/uL [facility] RBC (Bld) [#/Vol] 4.53 10*6/uL [facility] WBC (Bld) [#/Vol] 3.42 10*3/uL Low 3.73 - 10. 10 K/uL [facility] Hematocrit (Bld) [Volume fraction] 39.4 % Low 39.6-48.8 [facility] Comment on above: Performed By: #### C Tray, CHM7, HFP, IPB, MGO #### [facility] (DEFAULT) [address] [place] [address] 07789 Hemoglobin (Bld) [Mass/Vol] 12.7 g/dL Low 13.4-16.8 [facility] Comment on above: Performed By: #### C Tray, CHM7, HFP, IPB, MGO #### [facility] (DEFAULT) [address] [place] [address] 99888 MCV (RBC) [Entitic vol] 87.0 fL Normal 79.0-94.5 [facility] Comment on above: Performed By: #### C A, CHM7, HFP, IPB, MGO #### [facility] (DEFAULT) [address] [place] [address] 47039 Mean Cell Hgb 28.0 pg Normal 26.1-33.3 [facility] Comment on above: Performed By: #### C A, CHM7, HFP, IPB, MGO #### [facility] (DEFAULT) [address] [place] [address] 40762 Mean Cell Hgb Conc 32.2 g/dL Normal 31.9-36.5 [facility] Comment on above: Performed By: #### C A, CHM7, HFP, IPB, MGO #### U [facility] (DEFAULT) [address] [place] [address] 72553 Platelet mean volume (Bld) [Entitic vol] 10.2 fL Normal 8.7-12.3 [facility] Comment on above: Performed By: #### C A, CHM7, HFP, IPB, MGO #### [facility] (DEFAULT) [address] [place] [address] 51488 Platelets (Bld) [#/Vol] 157 10*3/uL Normal 146-337 [facility] Comment on above: Performed By: #### C A, CHM7, HFP, IPB, MGO #### U [facility] (DEFAULT) [address] [place] [address] 50083 RBC (Bld) [#/Vol] 4.53 10*6/uL Normal 4.38-5.83 [facility] Comment on above: Performed By: #### C A, CHM7, HFP, IPB, MGO #### U [facility] (DEFAULT) [address] [place] [address] 03246 RBC Distribution 14.0 % Normal 10.9-14.3 [facility] Comment on above: Performed By: #### C A, CHM7, HFP, IPB, MGO #### U [facility] (DEFAULT) [address] [place] [address] 07365 WBC (Bld) [#/Vol] 3.42 10*3/uL Low 3.73-10.10 [facility] Comment on above: Performed By: #### C A, CHM7, HFP, IPB, MGO #### [facility] (DEFAULT) [address] [place] [address] CHEM 7 (LYTES,BUN,CREA,GLUC) on 01-21-2024 Anion gap [Moles/Vol] 12 mmol/L 7 - 17 mmol/L [facility] Chloride [Moles/Vol] 107 mmol/L 98 - 10 8 mmol/L [facility] CO2 [Moles/Vol] 26 mmol/L 21 - 31 mmol/L [facility] Creatinine [Mass/Vol] 1.11 mg/dL 0.70 - 1.30 mg/dL [facility] eGFR, CKD-EPI, Male 80 - PINF [facility] Comment on above: Reported eGFR is bas ed on the CKD-EPI 2020 equation using creatinine, age, and sex. Glucose [Mass/Vol] 93 mg/dL 70 - 99 mg/dL [facility] Osmolality Calc [Osmolality] 295 [facility] Potassium [Moles/Vol] 3.9 mmol/L 3.5 - 5.0 mmol/L [facility] Sodium [Moles/Vol] 141 mmol/L 135 - 145 mmol/L [facility] Urea nitrogen [Mass/Vol] 15 mg/dL 7 - 25 mg/dL [facility] Urea nitrogen/Creatinine [Mass ratio] 14 mg/mg [facility] Anion gap [Moles/Vol] 12 mmol/L Normal 7-17 [facility] Comment on above: Performed By: #### C HM7, HFP, MGO #### [facility] (DEFAULT) [address] [place] [address] Chloride [Moles/Vol] 107 mmol/L Normal 98-108 [facility] Comment on above: Performed By: #### C HM7, HFP, MGO #### [facility] (DEFAULT) [address] [place] [address] 65042 CO2 [Moles/Vol] 26 mmol/L Normal 21-31 [facility] Comment on above: Performed By: #### TAVO GONG, MGO #### [facility] (DEFAULT) [address] [place] [address] 33715 Creatinine [Mass/Vol] 1.11 mg/dL Normal 0.70-1.30 [facility] Comment on above: Performed By: #### Chinedu MEDLEY, TAVO, MGO #### [facility] (DEFAULT) [address] [place] [address] 76366 GFR/1.73 sq M.predicted among non-blacks MDRD (S/P/Bld) [Vol rate/Area] 80 mL/min/{1.73_m2} Normal >=60 [facility] Comment on above: Result Comment: Repo rted eGFR is based on the CKD-EPI 2020 equation using creatinine, age, and sex. Performed By: #### C TAVO MEDLEY, MGO #### U [facility] (DEFAULT) [address] [place] [address] 57072 Glucose [Mass/Vol] 93 mg/dL Normal 70-99 [facility] Comment on above: Performed By: #### Chinedu MEDLEY, TAVO, MGO #### [facility] (DEFAULT) [address] [place] [address] 14444 Osmolality [Osmolality] 295 mosm/kg Normal 278-305 [facility] Comment on above: Performed By: #### Chinedu MEDLEY, TAVO, MGO #### [facility] (DEFAULT) [address] [place] [address] 51941 Potassium [Moles/Vol] 3.9 mmol/L Normal 3.5-5.0 [facility] Comment on above: Performed By: #### Chinedu MEDLEY, HFP, MGO #### [facility] (DEFAULT) [address] [place] [address] 54454 Sodium [Moles/Vol] 141 mmol/L Normal 135-145 [facility] Comment on above: Performed By: #### C HM7, HFP, MGO #### U [facility] (DEFAULT) [address] [place] [address] 35629 Urea nitrogen [Mass/Vol] 15 mg/dL Normal 06-23 [facility] Comment on above: Performed By: #### C HM7, HFP, MGO #### [facility] (DEFAULT) [address] [place] [address] Urea nitrogen/Creatinine [Mass ratio] 14 mg/mg Normal [facility] Comment on above: Performed By: #### C HM7, HFP, MGO #### U [facility] (DEFAULT) [address] [place] [address] 44187 Cardiac catheterization stud yOrdered By: Kelvin Donohue on 01-21-2024 Body surface area Derived from formula 2.08 m2 [facility] Work Phone: [facility] Work Phone: Cardiac catheterization stud yon 01-21-2024 [...] with fistula occlusion Kelvin Donohue MD, MPH Policy Checker of Internal Medicine. Section of Advanced Heart Failure and Transplantation Division of Cardiovascular Diseases [email or web address] [email or web address] [facility] INVASIVE CARDIOVASCULAR PROC EDUREon 01-21-2024 INVASIVE CARDIOVASCULAR PROCEDURE Table formatting from [...] with fistula occlusion Kelvin Donohue MD, MPH Policy Checker of Internal Medicine. Section of Advanced Heart Failure and Transplantation Division of Cardiovascular Diseases [email or web address] Table formatting from the original result was not included. Images from the original result were not included. George Styles Invasive Cardiology Cath Procedure Ordering Physician: KELVIN PACHECO Order #: [id number] Study Date: 01/20/2024 Patient Information Name MRN Description George Styles [id number] y.o. male Location Name Address [place] [id number] Physicians Panel Physicians Referring Physician Case Authorizing [...] with fistula occlusion Kelvin Donohue MD, MPH Policy Checker of Internal Medicine. Section of Advanced Heart Failure and Transplantation Division of Cardiovascular Diseases [email or web address] Medical History Diagnosis Date Comment Source Acute renal failure CAD (coronary artery disease) Cirrhosis Dialysis patient T, Th, Sa- Started 06/01/2018 End stage renal disease 06/01/2018 Essential hypertension, benign Hepatic encephalopathy History of blood transfusion Liver cirrhosis Procedure The risks and alternatives of the procedure and sedation were explained. Informed consent was obtained. The patient was brought to the geotechnical laboratory technician and placed on the table. The planned puncture sites were prepped and draped in the usual sterile fashion. Fluoro Dose Fluoro Dose: 0.2 Gy-cm^2 Complications Complications documented before study signed (01/21/2024 4:05 PM) No complications were associated with this study. Documented by LU Costello - 01/20/2024 11:09 AM Cardiac Scrap Bunch Maker Attending Physician Statement and Signature I have [...] Blood O (more content not included)... Normal [facility] MAGNESIUMon 01-21-2024 Interpretation and review of laboratory results Abnormal [facility] Magnesium [Mass/Vol] 1.5 mg/dL Low 1.6 - 2 .6 mg/dL [facility] Magnesium [Mass/Vol] 1.5 mg/dL Low 1.6-2.6 [facility] Comment on above: Performed By: #### C HM7, [facility], MGO #### [facility] (DEFAULT) [address] [place] [address] No Panel Informationon 01-21 [facility] TACROLIMUS LEVEL, TROUGH (WI E DRUG LEVEL)on 01-21-2024 Interpretation and review of laboratory results Normal [facility] Tacrolimus (Bld) [Mass/Vol] 7.2 ng/mL Bone Marrow Transplant: 4.0-12.0, Therapeutic: 5.0-15.0 [facility] Method performed is a chemiluminescent microparticle immunoasssay on the [employer] i2000. The range is based on experience at [facility] and users should be aware that target concentrations vary widely depending on concomitant therapy, time post-transplant, and desired degree of immunosuppression. [facility] Tacrolimus, Trough 7.2 ng/mL Normal Bone Susana ow Transplant: 4.0-12.0, Therapeutic: 5.0-15.0 [facility] Comment on above: Order Comment: Pleas e draw at specified interval PRIOR to dose. Do not hold dose to wait for level. Specimens batched twice per day, (M-F) and once per day weekendsMethod performed is a chemiluminescent microparticle immunoasssay on the [employer] i2000.The range is based on experience at [facility] and users should be aware that target concentrations vary widely depending on concomitant therapy, time post-transplant, and desired degree of immunosuppression. Performed By: #### C A, CHM7, HFP, IPB, MGO #### [facility] (DEFAULT) [address] [place] [address] CBC,PLATELETSon 01-20-2024 Erythrocyte distribution width (RBC) [Ratio] 13.8 % 10.9 - 14.3 % [facility] Hematocrit (Bld) [Volume fraction] 38.9 % Low 39.6 - 48.8 % [facility] Hemoglobin (Bld) [Mass/Vol] 12.5 g/dL Low 13.4 - 16.8 g/dL [facility] Interpretation and review of laboratory results Abnormal [facility] MCH (RBC) [Entitic mass] 28.0 pg 26.1 - 33.3 pg [facility] MCHC (RBC) [Mass/Vol] 32.1 g/dL 31.9 - 36.5 g/dL [facility] MCV (RBC) [Entitic vol] 87.2 fL 79.0 - 94.5 fL [facility] Platelet mean volume (Bld) [Entitic vol] 10.2 fL 8.7 - 12.3 fL [facility] Platelets (Bld) [#/Vol] 166 10*3/uL 146 - 337 K/uL [facility] RBC (Bld) [#/Vol] 4.46 10*6/uL [facility] WBC (Bld) [#/Vol] 3.79 10*3/uL 3.73 - 10. 10 K/uL [facility] Hematocrit (Bld) [Volume fraction] 38.9 % Low 39.6-48.8 [facility] Comment on above: Performed By: #### C A, CHM7, HFP, IPB, MGO #### [facility] (DEFAULT) [address] [place] [address] 48395 Hemoglobin (Bld) [Mass/Vol] 12.5 g/dL Low 13.4-16.8 [facility] Comment on above: Performed By: #### C A, CHM7, HFP, IPB, MGO #### [facility] (DEFAULT) [address] [place] [address] 16029 MCV (RBC) [Entitic vol] 87.2 fL Normal 79.0-94.5 [facility] Comment on above: Performed By: #### C A, CHM7, HFP, IPB, MGO #### [facility] (DEFAULT) [address] [place] [address] 31025 Mean Cell Hgb 28.0 pg Normal 26.1-33.3 [facility] Comment on above: Performed By: #### C A, CHM7, HFP, IPB, MGO #### [facility] (DEFAULT) [address] [place] [address] 04211 Mean Cell Hgb Conc 32.1 g/dL Normal 31.9-36.5 [facility] Comment on above: Performed By: #### C A, CHM7, HFP, IPB, MGO #### [facility] (DEFAULT) [address] [place] [address] 43936 Platelet mean volume (Bld) [Entitic vol] 10.2 fL Normal 8.7-12.3 [facility] Comment on above: Performed By: #### C A, CHM7, HFP, IPB, MGO #### [facility] (DEFAULT) [address] [place] [address] 67783 Platelets (Bld) [#/Vol] 166 10*3/uL Normal 146-337 [facility] Comment on above: Performed By: #### C A, CHM7, HFP, IPB, MGO #### [facility] (DEFAULT) [address] [place] [address] 52913 RBC (Bld) [#/Vol] 4.46 10*6/uL Normal 4.38-5.83 [facility] Comment on above: Performed By: #### C A, CHM7, HFP, IPB, MGO #### [facility] (DEFAULT) [address] [place] [address] 17445 RBC Distribution 13.8 % Normal 10.9-14.3 [facility] Comment on above: Performed By: #### C A, CHM7, HFP, IPB, MGO #### [facility] (DEFAULT) [address] [place] [address] 04801 WBC (Bld) [#/Vol] 3.79 10*3/uL Normal 3.73-10.10 [facility] Comment on above: Performed By: #### C A, CHM7, HFP, IPB, MGO #### [facility] (DEFAULT) [address] [place] [address] 92666 CHEM 7 (LYTES,BUN,CREA,GLUC) on 01-20-2024 Anion gap [Moles/Vol] 12 mmol/L 7 - 17 mmol/L [facility] Chloride [Moles/Vol] 105 mmol/L 98 - 10 8 mmol/L [facility] CO2 [Moles/Vol] 28 mmol/L 21 - 31 mmol/L [facility] Creatinine [Mass/Vol] 1.12 mg/dL 0.70 - 1.30 mg/dL [facility] eGFR, CKD-EPI, Male 79 - PINF [facility] Comment on above: Reported eGFR is bas ed on the CKD-EPI 2021 equation using creatinine, age, and sex. Glucose [Mass/Vol] 88 mg/dL 70 - 99 mg/dL [facility] Osmolality Calc [Osmolality] 294 [facility] Potassium [Moles/Vol] 3.8 mmol/L 3.5 - 5.0 mmol/L [facility] Sodium [Moles/Vol] 141 mmol/L 135 - 145 mmol/L [facility] Urea nitrogen [Mass/Vol] 15 mg/dL 7 - 25 mg/dL [facility] Urea nitrogen/Creatinine [Mass ratio] 13 mg/mg [facility] Anion gap [Moles/Vol] 12 mmol/L Normal 7-17 [facility] Comment on above: Performed By: #### C HM7, HFP, MGO #### [facility] (DEFAULT) [address] [place] [address] 58194 Chloride [Moles/Vol] 105 mmol/L Normal 98-108 [facility] Comment on above: Performed By: #### Chinedu HM7, HFP, MGO #### [facility] (DEFAULT) [address] [place] [address] 97979 CO2 [Moles/Vol] 28 mmol/L Normal 21-31 [facility] Comment on above: Performed By: #### Chinedu HM7, HFP, MGO #### [facility] (DEFAULT) [address] [place] [address] 97203 Creatinine [Mass/Vol] 1.12 mg/dL Normal 0.70-1.30 [facility] Comment on above: Performed By: #### C HM7, HFP, MGO #### [facility] (DEFAULT) [address] [place] [address] 19946 GFR/1.73 sq M.predicted among non-blacks MDRD (S/P/Bld) [Vol rate/Area] 79 mL/min/{1.73_m2} Normal >=60 [facility] Comment on above: Result Comment: Repo rted eGFR is based on the CKD-EPI 2021 equation using creatinine, age, and sex. Performed By: #### C HM7, HFP, MGO #### [facility] (DEFAULT) [address] [place] [address] 11922 Glucose [Mass/Vol] 88 mg/dL Normal 70-99 [facility] Comment on above: Performed By: #### C HM7, HFP, MGO #### [facility] (DEFAULT) [address] [place] [address] 64464 Osmolality [Osmolality] 294 mosm/kg Normal 278-305 [facility] Comment on above: Performed By: #### C HM7, HFP, MGO #### [facility] (DEFAULT) [address] [place] [address] 98826 Potassium [Moles/Vol] 3.8 mmol/L Normal 3.5-5.0 [facility] Comment on above: Performed By: #### C HM7, HFP, MGO #### [facility] (DEFAULT) [address] [place] [address] 99572 Sodium [Moles/Vol] 141 mmol/L Normal 135-145 [facility] Comment on above: Performed By: #### C HM7, HFP, MGO #### [facility] (DEFAULT) [address] [place] [address] 79321 Urea nitrogen [Mass/Vol] 15 mg/dL Normal 7-25 [facility] Comment on above: Performed By: #### C HM7, HFP, MGO #### [facility] (DEFAULT) [address] [place] [address] 30332 Urea nitrogen/Creatinine [Mass ratio] 13 mg/mg Normal [facility] Comment on above: Performed By: #### C HM7, HFP, MGO #### [facility] (DEFAULT) [address] [place] [address] 55267 Cardiac catheterization stud yon 01-20-2024 [facility] Radiology Study observation (narrative) [facility] Radiology Study observation (narrative) [facility] EBV BY PCR, QUANTITATIVE,BLO ODOrdered By: Charlotte Jensen on 01-20-2024 EBV DNA ESTELITA+probe (Unsp spec) [#/Vol] NINF [facility] Interpretation and review of laboratory results Normal [facility] This test was performed using a real time PCR assay. The dynamic range for this assay is 1000-5,000,000 IU/mL. A result <1000 IU/mL does not rule out the presence of EBV DNA in quantities below the sensitivity of this assay. This test was developed and its performance characteristics determined by [facility]. It has not been cleared or approved by the FDA. The laboratory is regulated under CLIA as qualified to perform high-complexity testing. This test is used for clinical purposes. It should not be regarded as investigational or for research. [facility] HEPATIC FUNCTION PANELon Albumin [Mass/Vol] 3.7 g/dL 3.5 - 5.0 g/dL [facility] ALP [Catalytic activity/Vol] 73 U/L 32 - 126 U/L [facility] ALT [Catalytic activity/Vol] 12 U/L 10 - 52 U/L [facility] AST [Catalytic activity/Vol] 19 U/L 10 - 39 U/L [facility] Bilirubin [Mass/Vol] 2.1 mg/dL High [facility] - 1.5 mg/dL [facility] Bilirubin.direct [Mass/Vol] 0.5 mg/dL High [facility] - 0.3 mg/dL [facility] Interpretation and review of laboratory results Abnormal [facility] Protein [Mass/Vol] 6.1 g/dL Low 6.4 - 8.3 g/dL [facility] Albumin [Mass/Vol] 3.7 g/dL Normal 3.5-5.0 [facility] Comment on above: Performed By: #### C HM7, HFP, MGO #### [facility] (DEFAULT) [address] [place] [address] ALP [Catalytic activity/Vol] 73 U/L Normal 32-126 [facility] Comment on above: Performed By: #### Chinedu HM7, HFP, MGO #### [facility] (DEFAULT) [address] [place] [address] 56374 ALT [Catalytic activity/Vol] 12 U/L Normal 10-52 [facility] Comment on above: Performed By: #### Chinedu HM7, HFP, MGO #### [facility] (DEFAULT) [address] [place] [address] 32887 AST [Catalytic activity/Vol] 19 U/L Normal 10-39 [facility] Comment on above: Performed By: #### Chinedu HM7, HFP, MGO #### [facility] (DEFAULT) [address] [place] [address] 74290 Bilirubin [Mass/Vol] 2.1 mg/dL High <1.5 [facility] Comment on above: Performed By: #### Chinedu HM7, HFP, MGO #### [facility] (DEFAULT) [address] [place] [address] 45228 Bilirubin.indirect [Mass/Vol] 0.5 mg/dL High <0.3 [facility] Comment on above: Performed By: #### Chinedu HM7, HFP, MGO #### [facility] (DEFAULT) [address] [place] [address] 21962 Protein [Mass/Vol] 6.1 g/dL Low 6.4-8.3 [facility] Comment on above: Performed By: #### Chinedu HMJessica, HFP, MGO #### [facility] (DEFAULT) [address] [place] [address] 18629 ITRACONAZOLE LEVELon 024 Hydroxyitraconazole 7.6 mcg/mL Normal [facility] Comment on above: Order Comment: Dilan gregory draw level at specified interval PRIOR to dose. Result Comment: REFERENCE VALUE No therapeutic range established; activity and serum concentration are similar to parent drug. ADDITIONAL INFORMATION This test was developed and its performance characteristics determined by [facility] in a manner consistent with CLIA requirements. This test has not been cleared or approved by the U.S. Food and Drug Administration. Test Performed by: [facility] [address] [place] [address] [employer] Seam Operator: Rosendo Bose M.D. Ph.D.; CLIA# [id number] Performed By: #### Chinedu Feliz, NATHANIEL, TAVO, IPBerlin, MGO #### [facility] (DEFAULT) [address] [place] [address] Itraconazole 6.0 mcg/mL Normal [facility] Comment on above: Order Comment: Pleas e draw level at specified interval PRIOR to dose. Result Comment: REFERENCE VALUE >0.5 (localized infection), >1.0 (systemic infection) Performed By: #### Chinedu Feliz, CHM7, HFP, IPB, MGO #### [facility] (DEFAULT) [address] [address] MAGNESIUMon 01-20-2024 Interpretation and review of laboratory results Normal [facility] Magnesium [Mass/Vol] 1.6 mg/dL 1.6 - 2 .6 mg/dL [facility] Magnesium [Mass/Vol] 1.6 mg/dL Normal 1.6-2.6 [facility] Comment on above: Performed By: #### Chinedu HM7, HFP, MGO #### [facility] (DEFAULT) [address] [address] No Panel Informationon 01-20 [facility] POCT CO-OXIMETRYon Hemoglobin (Bld) [Mass/Vol] 12.8 g/dL Low 13.4 - 16.8 g/dL [facility] Interpretation and review of laboratory results Abnormal [facility] Oxyhemoglobin 69 % Low 94 - 98 % [facility] Ordering physician notified. Test performed at address of the patient encounter. [facility] Hemoglobin (Bld) [Mass/Vol] 13.3 g/dL Low 13.4 - 16.8 g/dL [facility] Interpretation and review of laboratory results Abnormal [facility] Oxyhemoglobin 69 % Low 94 - 98 % [facility] Ordering physician notified. Test performed at address of the patient encounter. [facility] PT,INR,PTTon 01-20-2024 aPTT Coag (PPP) [Time] 30.6 s [facility] INR Coag (Bld) [Relative time] 1.2 {INR} High 0.9 - 1.1 [facility] Interpretation and review of laboratory results Abnormal [facility] PT Coag (PPP) [Time] 15.5 s High [facility] aPTT Coag (Bld) [Time] 30.6 s Normal 24.0-34.3 [facility] Comment on above: Performed By: #### C A, CHM7, HFP, IPB, MGO #### [facility] (DEFAULT) [address] [place] [id number] INR Coag (PPP) [Relative time] 1.2 {INR} High 0.9-1.1 [facility] Comment on above: Performed By: #### C A, CHM7, HFP, IPB, MGO #### [facility] (DEFAULT) [address] [place] [address] PT Coag (PPP) [Time] 15.5 s High 11.9-14.2 [facility] Comment on above: Performed By: #### C A, CHM7, HFP, IPB, MGO #### [facility] (DEFAULT) [address] [place] [address] [id number] TACROLIMUS LEVEL, TROUGH (WI E DRUG LEVEL)Ordered By: Yanira Marcum on 01-20-2024 Interpretation and review of laboratory results Normal [facility] Tacrolimus (Bld) [Mass/Vol] 7.7 ng/mL Bone Marrow Transplant: 4.0-12.0, Therapeutic: 5.0-15.0 [facility] Method performed is a chemiluminescent microparticle immunoasssay on the [employer] i2000. The range is based on experience at [facility] and users should be aware that target concentrations vary widely depending on concomitant therapy, time post-transplant, and desired degree of immunosuppression. [facility] TACROLIMUS LEVEL, TROUGH (WI E DRUG LEVEL)on 01-20-2024 Tacrolimus, Trough 7.7 ng/mL Normal Bone Susana ow Transplant: 4.0-12.0, Therapeutic: 5.0-15.0 [facility] Comment on above: Order Comment: Pleas e draw at specified interval PRIOR to dose. Do not hold dose to wait for level. Specimens batched twice per day, (M-F) and once per day weekendsMethod performed is a chemiluminescent microparticle immunoasssay on the [employer] i2000.The range is based on experience at [facility] and users should be aware that target concentrations vary widely depending on concomitant therapy, time post-transplant, and desired degree of immunosuppression. Performed By: #### C A, CHM7, HFP, IPB, MGO #### [facility] (DEFAULT) [address] [address] CBC,PLATELETSon 01-19-2024 Erythrocyte distribution width (RBC) [Ratio] 13.9 % 10.9 - 14.3 % [facility] Hematocrit (Bld) [Volume fraction] 37.5 % Low 39.6 - 48.8 % [facility] Hemoglobin (Bld) [Mass/Vol] 12.1 g/dL Low 13.4 - 16.8 g/dL [facility] Interpretation and review of laboratory results Abnormal [facility] MCH (RBC) [Entitic mass] 28.3 pg 26.1 - 33.3 pg [facility] MCHC (RBC) [Mass/Vol] 32.3 g/dL 31.9 - 36.5 g/dL [facility] MCV (RBC) [Entitic vol] 87.8 fL 79.0 - 94.5 fL [facility] Platelet mean volume (Bld) [Entitic vol] 10.4 fL 8.7 - 12.3 fL [facility] Platelets (Bld) [#/Vol] 163 10*3/uL 146 - 337 K/uL [facility] RBC (Bld) [#/Vol] 4.27 10*6/uL Low [facility] WBC (Bld) [#/Vol] 3.69 10*3/uL Low 3.73 - 10. 10 K/uL [facility] Hematocrit (Bld) [Volume fraction] 37.5 % Low 39.6-48.8 [facility] Comment on above: Performed By: #### C Tray, CHM7, HFP, IPB, MGO #### [facility] (DEFAULT) [address] [place] [address] 94035 Hemoglobin (Bld) [Mass/Vol] 12.1 g/dL Low 13.4-16.8 [facility] Comment on above: Performed By: #### C Tray, CHM7, HFP, IPB, MGO #### [facility] (DEFAULT) [address] [place] [address] 32351 MCV (RBC) [Entitic vol] 87.8 fL Normal 79.0-94.5 [facility] Comment on above: Performed By: #### C Tray, CHM7, HFP, IPB, MGO #### [facility] (DEFAULT) [address] [place] [address] 34841 Mean Cell Hgb 28.3 pg Normal 26.1-33.3 [facility] Comment on above: Performed By: #### C A, CHM7, HFP, IPB, MGO #### [facility] (DEFAULT) [address] [place] [address] 91308 Mean Cell Hgb Conc 32.3 g/dL Normal 31.9-36.5 [facility] Comment on above: Performed By: #### C A, CHM7, HFP, IPB, MGO #### [facility] (DEFAULT) [address] [place] [address] 92710 Platelet mean volume (Bld) [Entitic vol] 10.4 fL Normal 8.7-12.3 [facility] Comment on above: Performed By: #### C A, CHM7, HFP, IPB, MGO #### [facility] (DEFAULT) [address] [place] [address] 37161 Platelets (Bld) [#/Vol] 163 10*3/uL Normal 146-337 [facility] Comment on above: Performed By: #### C A, CHM7, HFP, IPB, MGO #### [facility] (DEFAULT) [address] [place] [address] 57931 RBC (Bld) [#/Vol] 4.27 10*6/uL Low 4.38-5.83 [facility] Comment on above: Performed By: #### C A, CHM7, HFP, IPB, MGO #### [facility] (DEFAULT) [address] [place] [address] 30810 RBC Distribution 13.9 % Normal 10.9-14.3 [facility] Comment on above: Performed By: #### C A, CHM7, HFP, IPB, MGO #### [facility] (DEFAULT) [address] [place] [address] 33880 WBC (Bld) [#/Vol] 3.69 10*3/uL Low 3.73-10.10 [facility] Comment on above: Performed By: #### C A, CHM7, HFP, IPB, MGO #### [facility] (DEFAULT) [address] [place] [address] 86552 CHEM 7 (LYTES,BUN,CREA,GLUC) on 01-19-2024 Anion gap [Moles/Vol] 14 mmol/L 7 - 17 mmol/L [facility] Chloride [Moles/Vol] 106 mmol/L 98 - 10 8 mmol/L [facility] CO2 [Moles/Vol] 24 mmol/L 21 - 31 mmol/L [facility] Creatinine [Mass/Vol] 1.13 mg/dL 0.70 - 1.30 mg/dL [facility] eGFR, CKD-EPI, Male 79 - PINF [facility] Comment on above: Reported eGFR is bas ed on the CKD-EPI 2020 equation using creatinine, age, and sex. Glucose [Mass/Vol] 86 mg/dL 70 - 99 mg/dL [facility] Osmolality Calc [Osmolality] 293 [facility] Potassium [Moles/Vol] 3.8 mmol/L 3.5 - 5.0 mmol/L [facility] Sodium [Moles/Vol] 140 mmol/L 135 - 145 mmol/L [facility] Urea nitrogen [Mass/Vol] 16 mg/dL 7 - 25 mg/dL [facility] Urea nitrogen/Creatinine [Mass ratio] 14 mg/mg [facility] Anion gap [Moles/Vol] 14 mmol/L Normal 7-17 [facility] Comment on above: Performed By: #### C Tray, CHM7, HFP, IPB, MGO #### [facility] (DEFAULT) [address] [place] [address] 17270 Chloride [Moles/Vol] 106 mmol/L Normal 98-108 [facility] Comment on above: Performed By: #### C Tray, CHM7, HFP, IPB, MGO #### [facility] (DEFAULT) [address] [place] [address] CO2 [Moles/Vol] 24 mmol/L Normal 21-31 [facility] Comment on above: Performed By: #### Chinedu Feliz, CHM7, HFP, IPB, MGO #### [facility] (DEFAULT) [address] [place] [address] 42069 Creatinine [Mass/Vol] 1.13 mg/dL Normal 0.70-1.30 [facility] Comment on above: Performed By: #### C A, CHM7, HFP, IPB, MGO #### [facility] (DEFAULT) [address] [place] [address] 97326 GFR/1.73 sq M.predicted among non-blacks MDRD (S/P/Bld) [Vol rate/Area] 78 mL/min/{1.73_m2} Normal >=60 [facility] Comment on above: Result Comment: Repo rted eGFR is based on the CKD-EPI 2020 equation using creatinine, age, and sex. Performed By: #### C A, CHM7, HFP, IPB, MGO #### [facility] (DEFAULT) [address] [place] [address] 69755 Glucose [Mass/Vol] 86 mg/dL Normal 70-99 [facility] Comment on above: Performed By: #### C A, CHM7, HFP, IPB, MGO #### [facility] (DEFAULT) [address] [place] [address] 99545 Osmolality [Osmolality] 293 mosm/kg Normal 278-305 [facility] Comment on above: Performed By: #### C A, CHM7, HFP, IPB, MGO #### [facility] (DEFAULT) [address] [place] [address] 92747 Potassium [Moles/Vol] 3.8 mmol/L Normal 3.5-5.0 [facility] Comment on above: Performed By: #### C A, CHM7, HFP, IPB, MGO #### [facility] (DEFAULT) [address] [place] [address] 15864 Sodium [Moles/Vol] 140 mmol/L Normal 135-145 [facility] Comment on above: Performed By: #### C A, CHM7, HFP, IPB, MGO #### [facility] (DEFAULT) [address] [place] [address] Urea nitrogen [Mass/Vol] 16 mg/dL Normal 7-25 [facility] Comment on above: Performed By: #### C A, CHM7, HFP, IPB, MGO #### [facility] (DEFAULT) [address] [place] [address] Urea nitrogen/Creatinine [Mass ratio] 14 mg/mg Normal [facility] Comment on above: Performed By: #### C A, CHM7, HFP, IPB, MGO #### [facility] (DEFAULT) [address] [place] [address] 57444 EBV BY PCR, QUANTITATIVE,BLO ODon 01-19-2024 Ebv By Pcr, Quant, Blood <1000 Normal <1000 [facility] Comment on above: Order Comment: This test [...] at [facility]. It has not been cleared or approved by the FDA. The laboratory is regulated under CLIA as qualified to perform high-complexity testing. This test is used for clinical purposes. It should not be regarded as investigational or for research. Performed By: #### C A, CHM7, HFP, IPB, MGO #### [facility] (DEFAULT) [address] [place] [address] 01848 HISTOPLASMA AND BLASTOMYCES ANTIGEN, ENZYME IMMUNOASSAY, SERMon 01-19-2024 Histoplasma/Blastomyce s Ag Result Not detected Not Detected [facility] Comment on above: No antigen from Hist oplasma or Blastomyces detected. False negative results may occur depending on extent of disease, and/or site of infection. Repeat testing on a new specimen if clinically indicated. Histoplasma/Blastomyce s Ag Value Not detected ng/mL [facility] Comment on above: ADDITIONAL INFORMATION This test was developed and its performance characteristics determined by [facility] in a manner consistent with CLIA requirements. This test has not been cleared or approved by the U.S. Food and Drug Administration. Test Performed by: [facility] [address] [place] [address] [employer] Seam Operator: Rosendo Bose M.D. Ph.D.; CLIA# [id number] [facility] MAGNESIUMon 01-19-2024 Interpretation and review of laboratory results Normal [facility] Magnesium [Mass/Vol] 1.8 mg/dL 1.6 - 2 .6 mg/dL [facility] Magnesium [Mass/Vol] 1.8 mg/dL Normal 1.6-2.6 [facility] Comment on above: Performed By: #### C A, CHM7, HFP, IPB, MGO #### [facility] (DEFAULT) [address] [place] [address] No Panel Informationon 01-19 [facility] TACROLIMUS LEVEL, TROUGH (WI E DRUG LEVEL)Ordered By: Raymundo Mehta on 01-19-2024 Interpretation and review of laboratory results Normal [facility] Tacrolimus (Bld) [Mass/Vol] 6.8 ng/mL Bone Marrow Transplant: 4.0-12.0, Therapeutic: 5.0-15.0 [facility] Method performed is a chemiluminescent microparticle immunoasssay on the [employer] i2000. The range is based on experience at [facility] and users should be aware that target concentrations vary widely depending on concomitant therapy, time post-transplant, and desired degree of immunosuppression. [facility] TACROLIMUS LEVEL, TROUGH (WI E DRUG LEVEL)on 01-19-2024 Tacrolimus, Trough 6.8 ng/mL Normal Bone Susana ow Transplant: 4.0-12.0, Therapeutic: 5.0-15.0 [facility] Comment on above: Order Comment: Pleas e draw at specified interval PRIOR to dose. Do not hold dose to wait for level. Specimens batched twice per day, (M-F) and once per day weekendsMethod performed is a chemiluminescent microparticle immunoasssay on the [employer] i2000.The range is based on experience at [facility] and users should be aware that target concentrations vary widely depending on concomitant therapy, time post-transplant, and desired degree of immunosuppression. Performed By: #### C HM7, HFP, MGO #### [facility] (DEFAULT) [address] [place] [address] US AV fistulaOrdered By: Diana Reyes on 01-19-2024 [facility] Work Phone: US AV fistulaon 01-19-2024 Radiology Study observation (narrative) [facility] AFP TUMOR MARKEROrdered By: Francisca Alaniz on 01-18-2024 AFP.tumor marker [Mass/Vol] ng/mL NINF - 8.1 ng/mL [facility] Comment on above: This test was perfor med on the [employer] Immunoassay platform by [employer] which is a two-site sandwich chemiluminescent immunoassay. It is important to note that assays using different manufacturers and/or methods may not be comparable. Interpretation and review of laboratory results Normal [facility] CBC,PLATELETSon 01-18-2024 Erythrocyte distribution width (RBC) [Ratio] 13.9 % 10.9 - 14.3 % [facility] Hematocrit (Bld) [Volume fraction] 38.4 % Low 39.6 - 48.8 % [facility] Hemoglobin (Bld) [Mass/Vol] 12.1 g/dL Low 13.4 - 16.8 g/dL [facility] Interpretation and review of laboratory results Abnormal [facility] MCH (RBC) [Entitic mass] 27.8 pg 26.1 - 33.3 pg [facility] MCHC (RBC) [Mass/Vol] 31.5 g/dL Low 31.9 - 36.5 g/dL [facility] MCV (RBC) [Entitic vol] 88.3 fL 79.0 - 94.5 fL [facility] Platelet mean volume (Bld) [Entitic vol] 10.4 fL 8.7 - 12.3 fL [facility] Platelets (Bld) [#/Vol] 183 10*3/uL 146 - 337 K/uL [facility] RBC (Bld) [#/Vol] 4.35 10*6/uL Low [facility] WBC (Bld) [#/Vol] 3.66 10*3/uL Low 3.73 - 10. 10 K/uL [facility] Hematocrit (Bld) [Volume fraction] 38.4 % Low 39.6-48.8 [facility] Comment on above: Performed By: #### C Tray, CHM7, HFP, IPB, MGO #### [facility] (DEFAULT) [address] [place] [address] 17773 Hemoglobin (Bld) [Mass/Vol] 12.1 g/dL Low 13.4-16.8 [facility] Comment on above: Performed By: #### C Tray, CHM7, HFP, IPB, MGO #### [facility] (DEFAULT) [address] [place] [address] 72383 MCV (RBC) [Entitic vol] 88.3 fL Normal 79.0-94.5 [facility] Comment on above: Performed By: #### C Tray, CHM7, HFP, IPB, MGO #### [facility] (DEFAULT) [address] [place] [address] 02178 Mean Cell Hgb 27.8 pg Normal 26.1-33.3 [facility] Comment on above: Performed By: #### C A, CHM7, HFP, IPB, MGO #### [facility] (DEFAULT) [address] [place] [address] 51877 Mean Cell Hgb Conc 31.5 g/dL Low 31.9-36.5 [facility] Comment on above: Performed By: #### C A, CHM7, HFP, IPB, MGO #### [facility] (DEFAULT) [address] [place] [address] 92453 Platelet mean volume (Bld) [Entitic vol] 10.4 fL Normal 8.7-12.3 [facility] Comment on above: Performed By: #### C A, CHM7, HFP, IPB, MGO #### [facility] (DEFAULT) [address] [place] [address] 42431 Platelets (Bld) [#/Vol] 183 10*3/uL Normal 146-337 [facility] Comment on above: Performed By: #### C A, CHM7, HFP, IPB, MGO #### [facility] (DEFAULT) [address] [place] [address] 30706 RBC (Bld) [#/Vol] 4.35 10*6/uL Low 4.38-5.83 [facility] Comment on above: Performed By: #### C A, CHM7, HFP, IPB, MGO #### [facility] (DEFAULT) [address] [place] [address] 85383 RBC Distribution 13.9 % Normal 10.9-14.3 [facility] Comment on above: Performed By: #### C A, CHM7, HFP, IPB, MGO #### [facility] (DEFAULT) [address] [place] [address] 64013 WBC (Bld) [#/Vol] 3.66 10*3/uL Low 3.73-10.10 [facility] Comment on above: Performed By: #### C A, CHM7, HFP, IPB, MGO #### [facility] (DEFAULT) [address] [place] [address] 18969 CHEM 7 (LYTES,BUN,CREA,GLUC) on 01-18-2024 Anion gap [Moles/Vol] 11 mmol/L 7 - 17 mmol/L [facility] Chloride [Moles/Vol] 108 mmol/L 98 - 10 8 mmol/L [facility] CO2 [Moles/Vol] 26 mmol/L 21 - 31 mmol/L [facility] Creatinine [Mass/Vol] 1.00 mg/dL 0.70 - 1.30 mg/dL [facility] eGFR, CKD-EPI, Male - PINF [facility] Comment on above: Reported eGFR is bas ed on the CKD-EPI 2020 equation using creatinine, age, and sex. Glucose [Mass/Vol] 89 mg/dL 70 - 99 mg/dL [facility] Osmolality Calc [Osmolality] 295 [facility] Potassium [Moles/Vol] 3.9 mmol/L 3.5 - 5.0 mmol/L [facility] Sodium [Moles/Vol] 141 mmol/L 135 - 145 mmol/L [facility] Urea nitrogen [Mass/Vol] 16 mg/dL 7 - 25 mg/dL [facility] Urea nitrogen/Creatinine [Mass ratio] 16 mg/mg [facility] Anion gap [Moles/Vol] 11 mmol/L Normal 7-17 [facility] Comment on above: Performed By: #### C HM7, HFP, MGO #### [facility] (DEFAULT) [address] [place] [address] 10621 Chloride [Moles/Vol] 108 mmol/L Normal 98-108 [facility] Comment on above: Performed By: #### C HM7, HFP, MGO #### [facility] (DEFAULT) [address] [place] [address] CO2 [Moles/Vol] 26 mmol/L Normal 21-31 [facility] Comment on above: Performed By: #### C HM7, HFP, MGO #### [facility] (DEFAULT) [address] [place] [address] Creatinine [Mass/Vol] 1.00 mg/dL Normal 0.70-1.30 [facility] Comment on above: Performed By: #### C HM7, HFP, MGO #### [facility] (DEFAULT) [address] [place] [address] 19398 eGFR, CKD-EPI, Male > Normal >=60 [facility] Comment on above: Result Comment: Repo rted eGFR is based on the CKD-EPI 2020 equation using creatinine, age, and sex. Performed By: #### C HM7, HFP, MGO #### [facility] (DEFAULT) [address] [place] [address] 33483 Glucose [Mass/Vol] 89 mg/dL Normal 70-99 [facility] Comment on above: Performed By: #### C HM7, HFP, MGO #### [facility] (DEFAULT) [address] [place] [address] 48554 Osmolality [Osmolality] 295 mosm/kg Normal 278-305 [facility] Comment on above: Performed By: #### C HM7, HFP, MGO #### [facility] (DEFAULT) [address] [place] [address] 96254 Potassium [Moles/Vol] 3.9 mmol/L Normal 3.5-5.0 [facility] Comment on above: Performed By: #### C HM7, HFP, MGO #### [facility] (DEFAULT) [address] [place] [address] 76381 Sodium [Moles/Vol] 141 mmol/L Normal 135-145 [facility] Comment on above: Performed By: #### C HM7, HFP, MGO #### [facility] (DEFAULT) [address] [place] [address] 56348 Urea nitrogen [Mass/Vol] 16 mg/dL Normal 7-25 [facility] Comment on above: Performed By: #### C HM7, HFP, MGO #### [facility] (DEFAULT) [address] [place] [address] 41779 Urea nitrogen/Creatinine [Mass ratio] 16 mg/mg Normal [facility] Comment on above: Performed By: #### C HM7, HFP, MGO #### [facility] (DEFAULT) [address] [place] [address] 61310 Cardiac echo study Procedure Ordered By: Gian Carlos on 01-18-2024 Ao [facility] 1.63 [facility] [phone] Ao peak meliton 1.46 m/s [facility]: [phone] Ao SOV index 1.56 cm/m2 [facility] Work Phone: [phone] Ao STJ index 1.25 cm/m2 [facility] Work Phone: [phone] Ao VTI 35.74 cm [facility] Work Phone: [phone] Ascending aorta 3.39 cm [facility] Work Phone: [phone] AV LVOT peak gradient 4 mmHg [facility] Work Phone: [phone] AV mean gradient 5 [facility]: [phone] AV peak gradient 9 mmHG [facility] Work Phone: [phone] AV valve area 3.09 cm2 [facility] Work Phone: [phone] AV Velocity Ratio 0.73 [facility] Work Phone: [phone] VEGA (continuity Vmax) 3.01 cm2 [facility] Work Phone: [phone] VEGA (continuity VTI) 3.09 cm2 [facility] Work Phone: [phone] VEGA index (continuity Vmax) 1.45 m/s [facility] Work Phone: [phone] VEGA index (continuity VTI) 1.49 cm2/m2 [facility] Work Phone: [phone] Avg e' pk meliton 0.07 m/s [facility] Work Phone: [phone] Avg E/e' ratio 19.45 [facility] Work Phone: [phone] Body surface area Derived from formula 2.08 m2 [facility] Work Phone: [phone] BP EF 62 % [facility]: [phone] DI (Vmax) 0.73 [facility] Work Phone: [phone] DI (VTI) 0.74 m/2 [facility] Work Phone: [phone] E wave decelartion time 180.38 msec [facility] Work Phone: [phone] e' lateral pk meliton 0.0789 m/s [facility]: [phone] e' lateral pk meliton 0.08 m/s [facility] Phone: [phone] e' septal pk meliton 0.0653 m/s [facility] Work Phone: [phone] e' septal pk meliton 0.07 m/s [facility] Work Phone: [phone] E/A ratio 2.67 [facility] Work Phone: [phone] E[facility]e' [facility]: [phone] E/e' septal ratio 21.29 [facility]: [phone] EF SP 2CH 66 [facility]: [phone] EF SP 4CH 58 [facility] Work Phone: [phone] FS 28 % 28 - 44 % [facility] Work Phone: [phone] IVC ostium 2.30 cm [facility] Work Phone: IVS 1.11 cm [facility] Work Phone: [phone] LA AREA 2CH 24.36 cm2 [facility] Work [facility]: LA area 4CH 20.36 cm2 [facility] Work Phone: [phone] LA ESV BP (MOD) 64 mL [facility] Work Phone: [phone] LA ESV BP (MOD) index 31 mL/m2 [facility] Phone: [phone] LA ESV SP 2CH (MOD) 76 mL [facility] Work Phone: [phone] LA ESV SP 4CH (MOD) 53 mL [facility] Work Phone: [phone] LV EDV BP 180 mL [facility]: [phone] LV EDV SP 2CH 190 mL [facility] Work Phone: [phone] LV EDV SP 4CH 166 mL [facility] Work Phone: [phone] LV ESV BP 69 mL [facility] Work Phone: [phone] LV ESV SP 2CH 65 mL [facility] Work Phone: [phone] LV ESV SP 4CH 70 mL [facility] Work Phone: [phone] LV mass 254.73 g [facility] Work Phone: [phone] LV Mass Index 122.5 g/m2 [facility] Work Phone: [phone] LV RWT 0.42 [facility] Work Phone: [phone] LV stroke volume BP (ml) 111 [facility] Work [facility]: [phone] LV stroke volume index BP 53.37 mL/m2 [facility] Phone: [phone] LVIDD 5.53 cm [facility] Work Phone: [phone] LVIDS 3.97 cm [facility] Work Phone: [phone] [facility] area 4.15 [facility]2 [facility]: [phone] [facility] diameter 2.30 cm [facility] Phone: [phone] LVOT peak meliton 1.06 m/s [facility] Phone: [phone] LVOT peak VTI 26.61 cm [facility] Work Phone: [phone] LVOT stroke [facility] 111 [facility]: [phone] LVOT stroke volume index 53.13 ml/m2 [facility] Phone: [phone] Mr max meliton 4.21 m/s [facility] Phone: [phone] MR VTI 134.50 cm [facility] Work Phone: [phone] MV mean gradient 3 mmHg [facility] Work Phone: [phone] MV peak gradient 11 [facility] Phone: [phone] MV pk A meliton 0.52 m/s [facility] Work Phone: [phone] MV pk E meliton 1.39 m/s [facility] Work Phone: [phone] MV stenosis pressure 1/2 time 58.56 ms [facility] Work Phone: [phone] MV valve area by continuity eq 2.93 cm2 [facility] Work Phone: [phone] MV valve area p 1/2 method 3.76 cm2 [facility] Work Phone: [phone] MV VTI 37.70 cm [facility] Work Phone: [phone] MVA (continuity VTI) 2.92 cm [facility] Work Phone: [phone] [facility] AV VTI RATIO PRE STRESS 0.74 [facility] Work Phone: [phone] [facility] ECHO LV BIPLANE SYSTOLIC VOLUME INDEX 33.17 mL/m2 [facility] Work Phone: [phone] [facility] ECHO LV BP DIASTOLIC VOLUME INDEX 86.54 mL/m2 [facility] Work Phone: [facility] ECHO MR PEAK GRADIENT 70.94 mmHg [facility] Work Phone: [phone] PW 1.16 cm [facility] Work Phone: [phone] RA area 4CH (MOD) 14.50 cm2 [facility] Phone: [phone] RA vol index 4CH (MOD) 18.27 mL/m2 [facility] Work Phone: Right atrium volume 4 chamber method of disks 38 mL [facility] Work Phone: [phone] RV Area diastolic 33.20 cm2 [facility] Work Phone: RV Area systolic 21.30 cm2 [facility] Work Phone: [phone] RV basal diam 4.52 cm [facility] Work Phone: RV Fractional area change 35.8 % [facility] Work Phone: RV long diam 8.96 cm [facility] Work Phone: RV mid diam 3.70 cm [facility] Work Phone: RV S' 22.01 cm/s [facility] Work Phone: RVOT peak gradient 4 mmHg [facility] Work Phone: RVOT peak meliton 0.96 m/s [facility] Work Phone: RVOT peak VTI 20.86 cm [facility] Work Phone: Sinus 3.24 cm [facility] Work Phone: STJ 2.61 cm [facility] Work Phone: [phone] Stroke Volume 111 cm/mL [facility] Work Phone: [phone] Stroke volume index 53 [facility] Work Phone: [phone] TAPSE 2.19 cm [facility] Work Phone: [facility] Work Phone: Cardiac echo study Procedure on [...] echocardiography study was performed. Imaging system used: [employer]. Indications Indications for study: shortness of breath. [facility] Radiology Study observation (narrative) [facility] ECHOCARDIOGRAMon 01-18-2024 Echocardiography ? Left Ventricle: Chamber [...] original result were not included. Facility [facility] Patient Information Patient Name George Styles Legal [...] Role Read Date Gian Carlos MD Echo [place] 01/18/2024 Left Heart Measurements LV - Systole [...] Height We (more content not included)... Normal [facility] HEPATIC FUNCTION PANELon Albumin [Mass/Vol] 3.5 g/dL 3.5 - 5.0 g/dL [facility] ALP [Catalytic activity/Vol] 70 U/L 32 - 126 U/L [facility] ALT [Catalytic activity/Vol] 8 U/L Low 10 - 52 U/L [facility] AST [Catalytic activity/Vol] 20 U/L 10 - 39 U/L [facility] Bilirubin [Mass/Vol] 1.7 mg/dL High NINF - 1.5 mg/dL [facility] Bilirubin.direct [Mass/Vol] 0.4 mg/dL High NINF - 0.3 mg/dL [facility] Protein [Mass/Vol] 6.0 g/dL Low 6.4 - 8.3 g/dL [facility] Albumin [Mass/Vol] 3.5 g/dL Normal 3.5-5.0 [facility] Comment on above: Performed By: #### C HMJessica, HFP, MGO #### U [facility] (DEFAULT) [address] [address] ALP [Catalytic activity/Vol] 70 U/L Normal 32-126 [facility] Comment on above: Performed By: #### Chinedu HM7, HFP, MGO #### [facility] (DEFAULT) [address] [address] ALT [Catalytic activity/Vol] 8 U/L Low 10-52 [facility] Comment on above: Performed By: #### Chinedu HM7, HFP, MGO #### U [facility] (DEFAULT) [address] [address] AST [Catalytic activity/Vol] 20 U/L Normal 10-39 [facility] Comment on above: Performed By: #### TAVO GONG, MGO #### [facility] (DEFAULT) [address] [place] [address] Bilirubin [Mass/Vol] 1.7 mg/dL High <1.5 [facility] Comment on above: Performed By: #### TAVO GONG, MGO #### [facility] (DEFAULT) [address] [place] [address] Bilirubin.indirect [Mass/Vol] 0.4 mg/dL High <0.3 [facility] Comment on above: Performed By: #### TAVO GONG, MGO #### [facility] (DEFAULT) [address] [place] [address] Protein [Mass/Vol] 6.0 g/dL Low 6.4-8.3 [facility] Comment on above: Performed By: #### TAVO GONG, MGO #### [facility] (DEFAULT) [address] [place] [address] MAGNESIUMon 01-18-2024 Magnesium [Mass/Vol] 1.5 mg/dL Low 1.6 - 2 .6 mg/dL [facility] Magnesium [Mass/Vol] 1.5 mg/dL Low 1.6-2.6 [facility] Comment on above: Performed By: #### Chinedu MEDLEY, TAVO, MGO #### [facility] (DEFAULT) [address] [place] [address] No Panel Informationon 01-18 Interpretation and review of laboratory results Abnormal [facility] PT,INR,PTTon 01-18-2024 aPTT Coag (PPP) [Time] 30.0 s [facility] INR Coag (Bld) [Relative time] 1.1 {INR} 0.9 - 1.1 [facility] Interpretation and review of laboratory results Abnormal [facility] PT Coag (PPP) [Time] 14.5 s High [facility] aPTT Coag (Bld) [Time] 30.0 s Normal 24.0-34.3 [facility] Comment on above: Performed By: #### C Tray, CHM7, HFP, IPB, MGO #### [facility] (DEFAULT) [address] [place] [address] INR Coag (PPP) [Relative time] 1.1 {INR} Normal 0.9-1.1 [facility] Comment on above: Performed By: #### Chinedu Feliz, CHM7, HFP, IPB, MGO #### [facility] (DEFAULT) [address] [place] [address] PT Coag (PPP) [Time] 14.5 s High 11.9-14.2 [facility] Comment on above: Performed By: #### C Tray, CHM7, HFP, IPB, MGO #### [facility] (DEFAULT) [address] [place] [address]174 TSH W/FT4 REFLEXon 4 Interpretation and review of laboratory results Normal [facility] TSH Qn 2.660 m[IU]/L [facility] TSH 2.660 uIU/mL Normal 0.550-4.780 [facility] Comment on above: Performed By: #### C HM7, HFP, MGO #### [facility] (DEFAULT) [address] [place] [address] AFP TUMOR MARKERon 4 AFP Tumor Marker <2.2 Normal <8.1 [facility] Comment on above: Result Comment: This test was performed on the [employer] Immunoassay platform by [employer] which is a two-site sandwich chemiluminescent immunoassay. It is important to note that assays using different manufacturers and/or methods may not be comparable. Performed By: #### Chinedu Feliz, CHM7, HFP, IPB, MGO #### [facility] (DEFAULT) [address] [place] [address] DARYL AURIS SCREEN BY PCRO rdered By: Mynor Alejandro on 01-17-2024 Daryl auris Screen by PCR Not detected Not Detected [facility] Interpretation and review of laboratory results Normal [facility] This test was performed using a real-time PCR assay. This test was developed, and its performance characteristics determined by [facility]. It has not been cleared or approved by the FDA. The laboratory is regulated under CLIA as qualified to perform high-complexity testing. This test is used for clinical purposes. It should not be regarded as investigational or for research. [facility] CBC,PLATELETSon 01-17-2024 Erythrocyte distribution width (RBC) [Ratio] 14.0 % 10.9 - 14.3 % [facility] Hematocrit (Bld) [Volume fraction] 37.2 % Low 39.6 - 48.8 % [facility] Hemoglobin (Bld) [Mass/Vol] 12.0 g/dL Low 13.4 - 16.8 g/dL [facility] Interpretation and review of laboratory results Abnormal [facility] MCH (RBC) [Entitic mass] 27.9 pg 26.1 - 33.3 pg [facility] MCHC (RBC) [Mass/Vol] 32.3 g/dL 31.9 - 36.5 g/dL [facility] MCV (RBC) [Entitic vol] 86.5 fL 79.0 - 94.5 fL [facility] Platelet mean volume (Bld) [Entitic vol] 10.5 fL 8.7 - 12.3 fL [facility] Platelets (Bld) [#/Vol] 159 10*3/uL 146 - 337 K/uL [facility] RBC (Bld) [#/Vol] 4.30 10*6/uL Low [facility] WBC (Bld) [#/Vol] 3.69 10*3/uL Low 3.73 - 10. 10 K/uL [facility] Hematocrit (Bld) [Volume fraction] 37.2 % Low 39.6-48.8 [facility] Comment on above: Performed By: #### Chinedu HM7, HFP, MGO #### [facility] (DEFAULT) [address] [place] [address] Hemoglobin (Bld) [Mass/Vol] 12.0 g/dL Low 13.4-16.8 [facility] Comment on above: Performed By: #### C HM7, HFP, MGO #### [facility] (DEFAULT) [address] [place] [address] MCV (RBC) [Entitic vol] 86.5 fL Normal 79.0-94.5 [facility] Comment on above: Performed By: #### Chinedu HM7, HFP, MGO #### [facility] (DEFAULT) [address] [place] [address] Mean Cell Hgb 27.9 pg Normal 26.1-33.3 [facility] Comment on above: Performed By: #### C HM7, HFP, MGO #### [facility] (DEFAULT) [address] [place] [address] Mean Cell Hgb Conc 32.3 g/dL Normal 31.9-36.5 [facility] Comment on above: Performed By: #### C HM7, HFP, MGO #### [facility] (DEFAULT) [address] [place] [address] Platelet mean volume (Bld) [Entitic vol] 10.5 fL Normal 8.7-12.3 [facility] Comment on above: Performed By: #### C HM7, HFP, MGO #### [facility] (DEFAULT) [address] [place] [address] Platelets (Bld) [#/Vol] 159 10*3/uL Normal 146-337 [facility] Comment on above: Performed By: #### C HM7, HFP, MGO #### [facility] (DEFAULT) [address] [place] [address] RBC (Bld) [#/Vol] 4.30 10*6/uL Low 4.38-5.83 [facility] Comment on above: Performed By: #### C HM7, HFP, MGO #### [facility] (DEFAULT) [address] [place] [address] RBC Distribution 14.0 % Normal 10.9-14.3 [facility] Comment on above: Performed By: #### C HM7, HFP, MGO #### [facility] (DEFAULT) [address] [place] [address] WBC (Bld) [#/Vol] 3.69 10*3/uL Low 3.73-10.10 [facility] Comment on above: Performed By: #### C HM7, HFP, MGO #### [facility] (DEFAULT) [address] [place] [address] CHEM 7 (LYTES,BUN,CREA,GLUC) on 01-17-2024 Anion gap [Moles/Vol] 13 mmol/L 7 - 17 mmol/L [facility] Chloride [Moles/Vol] 109 mmol/L High 98 - 10 8 mmol/L [facility] CO2 [Moles/Vol] 21 mmol/L 21 - 31 mmol/L [facility] Creatinine [Mass/Vol] 1.04 mg/dL 0.70 - 1.30 mg/dL [facility] eGFR, CKD-EPI, Male 86 - PINF [facility] Comment on above: Reported eGFR is bas ed on the CKD-EPI 2020 equation using creatinine, age, and sex. Glucose [Mass/Vol] 82 mg/dL 70 - 99 mg/dL [facility] Osmolality Calc [Osmolality] 292 [facility] Potassium [Moles/Vol] 4.4 mmol/L 3.5 - 5.0 mmol/L [facility] Sodium [Moles/Vol] 139 mmol/L 135 - 145 mmol/L [facility] Urea nitrogen [Mass/Vol] 17 mg/dL 7 - 25 mg/dL [facility] Urea nitrogen/Creatinine [Mass ratio] 16 mg/mg [facility] Anion gap [Moles/Vol] 13 mmol/L Normal 7-17 [facility] Comment on above: Performed By: #### C HM7, HFP, MGO #### U [facility] (DEFAULT) [address] [place] [address] Chloride [Moles/Vol] 109 mmol/L High 98-108 [facility] Comment on above: Performed By: #### C HM7, HFP, MGO #### U [facility] (DEFAULT) [address] [place] [address] CO2 [Moles/Vol] 21 mmol/L Normal 21-31 [facility] Comment on above: Performed By: #### C HM7, HFP, MGO #### U [facility] (DEFAULT) [address] [place] [address] Creatinine [Mass/Vol] 1.04 mg/dL Normal 0.70-1.30 [facility] Comment on above: Performed By: #### C HM7, HFP, MGO #### U [facility] (DEFAULT) [address] [place] [address] GFR/1.73 sq M.predicted among non-blacks MDRD (S/P/Bld) [Vol rate/Area] 86 mL/min/{1.73_m2} Normal >=60 [facility] Comment on above: Result Comment: Repo rted eGFR is based on the CKD-EPI 2020 equation using creatinine, age, and sex. Performed By: #### C HM7, HFP, MGO #### U [facility] (DEFAULT) [address] [place] [address]803 Glucose [Mass/Vol] 82 mg/dL Normal 70-99 [facility] Comment on above: Performed By: #### C HM7, HFP, MGO #### U [facility] (DEFAULT) [address] [place] [address]679 Osmolality [Osmolality] 292 mosm/kg Normal 278-305 [facility] Comment on above: Performed By: #### C HM7, HFP, MGO #### [facility] (DEFAULT) [address] [place] [address] Potassium [Moles/Vol] 4.4 mmol/L Normal 3.5-5.0 [facility] Comment on above: Performed By: #### C HM7, HFP, MGO #### [facility] (DEFAULT) [address] [place] [address] Sodium [Moles/Vol] 139 mmol/L Normal 135-145 [facility] Comment on above: Performed By: #### C HM7, HFP, MGO #### [facility] (DEFAULT) [address] [place] [address]40 Urea nitrogen [Mass/Vol] 17 mg/dL Normal 7-25 [facility] Comment on above: Performed By: #### C HM7, HFP, MGO #### [facility] (DEFAULT) [address] [place] [address] 11046 Urea nitrogen/Creatinine [Mass ratio] 16 mg/mg Normal [facility] Comment on above: Performed By: #### C HM7, HFP, MGO #### U [facility] (DEFAULT) [address] [place] [address] ABDOMEN/PELVIS WITHOUT CO NTRASTon 01-17-2024 CT [...] unremarkable. Kidneys: Severe atrophy of the bilateral [place] kidney is without hydronephrosis. Right lower quadrant [...] middle lobe. Trace left pleural effusion. Normal [facility] CT [...] unremarkable. Kidneys: Severe atrophy of the bilateral [place] kidney is without hydronephrosis. Right lower quadrant [...] unremarkable. Kidneys: Severe atrophy of the bilateral [place] kidney is without hydronephrosis. Right lower quadrant [...] the middle lobe. Trace left pleural effusion. [facility] Radiology Study observation (narrative) [facility] HEPATIC FUNCTION PANELon Albumin [Mass/Vol] 3.5 g/dL 3.5 - 5.0 g/dL [facility] ALP [Catalytic activity/Vol] 73 U/L 32 - 126 U/L [facility] ALT [Catalytic activity/Vol] 7 U/L Low 10 - 52 U/L [facility] AST [Catalytic activity/Vol] 25 U/L 10 - 39 U/L [facility] Bilirubin [Mass/Vol] 1.8 mg/dL High NINF - 1.5 mg/dL [facility] Bilirubin.direct [Mass/Vol] 0.3 mg/dL High NINF - 0.3 mg/dL [facility] Protein [Mass/Vol] 6.0 g/dL Low 6.4 - 8.3 g/dL [facility] Albumin [Mass/Vol] 3.5 g/dL Normal 3.5-5.0 [facility] Comment on above: Performed By: #### C HM7, HFP, MGO #### [facility] (DEFAULT) [address] [place] [address] ALP [Catalytic activity/Vol] 73 U/L Normal 32-126 [facility] Comment on above: Performed By: #### C HM7, HFP, MGO #### U [facility] (DEFAULT) [address] [place] [address] 60084 ALT [Catalytic activity/Vol] 7 U/L Low 10-52 [facility] Comment on above: Performed By: #### C HM7, HFP, MGO #### U [facility] (DEFAULT) [address] [place] [address] 24687 AST [Catalytic activity/Vol] 25 U/L Normal 10-39 [facility] Comment on above: Performed By: #### C HM7, HFP, MGO #### [facility] (DEFAULT) [address] [place] [address]11 Bilirubin [Mass/Vol] 1.8 mg/dL High <1.5 [facility] Comment on above: Performed By: #### C HM7, HFP, MGO #### [facility] (DEFAULT) [address] [place] [address] Bilirubin.indirect [Mass/Vol] 0.3 mg/dL High <0.3 [facility] Comment on above: Performed By: #### Chinedu HM7, HFP, MGO #### [facility] (DEFAULT) [address] [place] [address] 99256 Protein [Mass/Vol] 6.0 g/dL Low 6.4-8.3 [facility] Comment on above: Performed By: #### C HM7, HFP, MGO #### [facility] (DEFAULT) [address] [place] [address] 25115 HISTOPLASMA AND BLASTOMYCES ANTIGEN, ENZYME IMMUNOASSAY, SERMon 01-17-2024 Histoplasma/Blastomyce s Ag Result Not detected Normal Not Detected [facility] Comment on above: Result Comment: No a ntigen from Histoplasma or Blastomyces detected. False negative results may occur depending on extent of disease, and/or site of infection. Repeat testing on a new specimen if clinically indicated. Performed By: #### C Tray, CHM7, HFP, IPB, MGO #### [facility] (DEFAULT) [address] [place] [address]31 Histoplasma/Blastomyce s Ag Value Not detected Normal [facility] Comment on above: Result Comment: ADDITIONAL INFORMATION This test was developed and its performance characteristics determined by [facility] in a manner consistent with CLIA requirements. This test has not been cleared or approved by the U.S. Food and Drug Administration. Test Performed by: [place] [address] [employer] Operator: Rosendo Bose M.D. Ph.D.; CLIA# [id number] Performed By: #### C Tray, CHM7, HFP, IPB, MGO #### [facility] (DEFAULT) [address] [address] MAGNESIUMon 01-17-2024 Interpretation and review of laboratory results Normal [facility] Magnesium [Mass/Vol] 1.7 mg/dL 1.6 - 2 .6 mg/dL [facility] Magnesium [Mass/Vol] 1.7 mg/dL Normal 1.6-2.6 [facility] Comment on above: Performed By: #### C HM7, HFP, MGO #### [facility] (DEFAULT) [address] [place] [address] No Panel Informationon 01-17 Interpretation and review of laboratory results Abnormal [facility] PT,INR,PTTon 01-17-2024 aPTT Coag (PPP) [Time] 29.9 s [facility] INR Coag (Bld) [Relative time] 1.1 {INR} 0.9 - 1.1 [facility] Interpretation and review of laboratory results Abnormal [facility] PT Coag (PPP) [Time] 14.5 s High [facility] aPTT Coag (Bld) [Time] 29.9 s Normal 24.0-34.3 [facility] Comment on above: Performed By: #### C HM7, HFP, MGO #### [facility] (DEFAULT) [address] [place] [address] INR Coag (PPP) [Relative time] 1.1 {INR} Normal 0.9-1.1 [facility] Comment on above: Performed By: #### C HM7, HFP, MGO #### [facility] (DEFAULT) [address] [place] [address]50 PT Coag (PPP) [Time] 14.5 s High 11.9-14.2 [facility] Comment on above: Performed By: #### C HM7, HFP, MGO #### [facility] (DEFAULT) [address] [place] [address] 11919 B-TYPE NATRIURETIC PEPTIDE ( BRAIN)on 01-16-2024 Interpretation and review of laboratory results Abnormal [facility] Natriuretic peptide B (Bld) [Mass/Vol] 212 pg/mL High 0 - 100 pg/mL [facility] Natriuretic peptide B (Bld) [Mass/Vol] 212 pg/mL High 0-100 [facility] Comment on above: Performed By: #### C HM7, HFP, MGO #### [facility] (DEFAULT) [address] [place] [address] CALCIUMon 01-16-2024 Calcium [Mass/Vol] 8.5 mg/dL Low 8.6 - 10. 5 mg/dL [facility] Calcium [Mass/Vol] 8.5 mg/dL Low 8.6-10.5 [facility] Comment on above: Performed By: #### C HELEN FelizM7, HFP, IPB, MGO #### [facility] (DEFAULT) [address] [place] [address] DARYL AURIS SCREEN BY PCRo n 01-16-2024 Daryl auris Screen by PCR Not detected Normal Not Detected [facility] Comment on above: Order Comment: This test was performed using a real-time PCR assay. This test was developed, and its performance characteristics determined by [facility] at [facility]. It has not been cleared or approved by the FDA. The laboratory is regulated under CLIA as qualified to perform high-complexity testing. This test is used for clinical purposes. It should not be regarded as investigational or for research. Performed By: #### C HM7, HFP, MGO #### [facility] (DEFAULT) [address] [place] [address]327 CBC AND ELECTRONIC DIFFon Basophils (Bld) [#/Vol] K/uL 0.00 - 0.09 K/uL [facility] Basophils/100 WBC (Bld) 0.6 % [facility] Differential cell count method Nom (Bld) Electronic Differential [facility] Eosinophils (Bld) [#/Vol] 0.09 10*3/uL 0.00 - 0.48 K/uL [facility] Eosinophils/100 WBC (Bld) 2.5 % [facility] Erythrocyte distribution width (RBC) [Ratio] 14.0 % 10.9 - 14.3 % [facility] Hematocrit (Bld) [Volume fraction] 37.4 % Low 39.6 - 48.8 % [facility] Hemoglobin (Bld) [Mass/Vol] 12.1 g/dL Low 13.4 - 16.8 g/dL [facility] Immature granulocytes (Bld) [#/Vol] K/uL NINF - 0.07 K/uL [facility] Immature granulocytes/100 WBC (Bld) 0.3 % [facility] Interpretation and review of laboratory results Abnormal [facility] Lymphocytes (Bld) [#/Vol] 1.16 10*3/uL 0.83 - 3.57 K/uL [facility] Lymphocytes/100 WBC (Bld) 32.0 % [facility]CH (RBC) [Entitic mass] 28.4 pg 26.1 - 33.3 pg [facility] MCHC (RBC) [Mass/Vol] 32.4 g/dL 31.9 - 36.5 g/dL [facility] MCV (RBC) [Entitic vol] 87.8 fL 79.0 - 94.5 fL [facility] Monocytes (Bld) [#/Vol] 0.43 10*3/uL 0.24 - 0.93 K/uL [facility] Monocytes/100 WBC (Bld) 11.9 % [facility] Neutrophils (Bld) [#/Vol] 1.91 10*3/uL 1.57 - 6.19 K/uL [facility] Nucleated RBC/100 WBC (Bld) [Ratio] 0.0 % NINF [facility] Platelet mean volume (Bld) [Entitic vol] 10.1 fL 8.7 - 12.3 fL [facility] Platelets (Bld) [#/Vol] 155 10*3/uL 146 - 337 K/uL [facility] RBC (Bld) [#/Vol] 4.26 10*6/uL Low [facility] Segmented neutrophils/100 WBC (Bld) 52.7 % [facility] WBC (Bld) [#/Vol] 3.62 10*3/uL Low 3.73 - 10. 10 K/uL [facility] Abs Baso Auto < Normal 0.00-0.09 [facility] Comment on above: Performed By: #### C TAVO MEDLEY, MGO #### [facility] (DEFAULT) [address] [place] [address] Basophils/100 WBC (Bld) 0.6 % Normal [facility] Comment on above: Performed By: #### Chinedu HM7, HFP, MGO #### [facility] (DEFAULT) [address] [place] [address] 58687 DIFF STATUS Electronic Differential Normal [facility] Comment on above: Performed By: #### C HM7, HFP, MGO #### U [facility] (DEFAULT) [address] [place] [address] 25680 Eosinophils (Bld) [#/Vol] 0.09 10*3/uL Normal 0.00-0.48 [facility] Comment on above: Performed By: #### C HM7, HFP, MGO #### [facility] (DEFAULT) [address] [place] [address] 05286 Eosinophils/100 WBC (Bld) 2.5 % Normal [facility] Comment on above: Performed By: #### C HM7, HFP, MGO #### [facility] (DEFAULT) [address] [place] [address] 96988 Hematocrit (Bld) [Volume fraction] 37.4 % Low 39.6-48.8 [facility] Comment on above: Performed By: #### C HM7, HFP, MGO #### [facility] (DEFAULT) [address] [place] [address] 31000 Hemoglobin (Bld) [Mass/Vol] 12.1 g/dL Low 13.4-16.8 [facility] Comment on above: Performed By: #### C HM7, HFP, MGO #### [facility] (DEFAULT) [address] [place] [address] 69492 Immature Grans % 0.3 % Normal [facility] Comment on above: Performed By: #### C HM7, HFP, MGO #### [facility] (DEFAULT) [address] [place] [address] 48991 Immature Grans Absolute < Normal <=0.07 [facility] Comment on above: Performed By: #### C HM7, HFP, MGO #### [facility] (DEFAULT) [address] [place] [address] 24215 Lymphocytes (Bld) [#/Vol] 1.16 10*3/uL Normal 0.83-3.57 [facility] Comment on above: Performed By: #### C HM7, HFP, MGO #### [facility] (DEFAULT) [address] [place] [address] 89515 Lymphocytes/100 WBC (Bld) 32.0 % Normal [facility] Comment on above: Performed By: #### C HM7, HFP, MGO #### [facility] (DEFAULT) [address] [place] [address] 92121 MCV (RBC) [Entitic vol] 87.8 fL Normal 79.0-94.5 [facility] Comment on above: Performed By: #### C HM7, HFP, MGO #### [facility] (DEFAULT) [address] [place] [address] 58870 Mean Cell Hgb 28.4 pg Normal 26.1-33.3 [facility] Comment on above: Performed By: #### C HM7, HFP, MGO #### [facility] (DEFAULT) [address] [place] [address] 20567 Mean Cell Hgb Conc 32.4 g/dL Normal 31.9-36.5 [facility] Comment on above: Performed By: #### C HM7, HFP, MGO #### [facility] (DEFAULT) [address] [place] [address] 56037 Monocytes (Bld) [#/Vol] 0.43 10*3/uL Normal 0.24-0.93 [facility] Comment on above: Performed By: #### C HM7, HFP, MGO #### [facility] (DEFAULT) [address] [place] [address] 42688 Monocytes/100 WBC (Bld) 11.9 % Normal [facility] Comment on above: Performed By: #### C HM7, HFP, MGO #### [facility] (DEFAULT) [address] [place] [address] 05110 Nucleated RBC 0.0 /100 WBC Normal <=0.2 [facility] Comment on above: Performed By: #### C HM7, HFP, MGO #### [facility] (DEFAULT) [address] [place] [address] 43168 Platelet mean volume (Bld) [Entitic vol] 10.1 fL Normal 8.7-12.3 [facility] Comment on above: Performed By: #### C HM7, HFP, MGO #### [facility] (DEFAULT) [address] [place] [address] 08803 Platelets (Bld) [#/Vol] 155 10*3/uL Normal 146-337 [facility] Comment on above: Performed By: #### C HM7, HFP, MGO #### [facility] (DEFAULT) [address] [place] [address] 76475 RBC (Bld) [#/Vol] 4.26 10*6/uL Low 4.38-5.83 [facility] Comment on above: Performed By: #### C HM7, HFP, MGO #### [facility] (DEFAULT) [address] [place] [address] 50130 RBC Distribution 14.0 % Normal 10.9-14.3 [facility] Comment on above: Performed By: #### C HM7, HFP, MGO #### [facility] (DEFAULT) [address] [place] [address] 33489 Segs + Bands Auto 52.7 % Normal [facility] Comment on above: Performed By: #### C HM7, HFP, MGO #### [facility] (DEFAULT) [address] [place] [address] 23778 Segs + Bands,Absolute Auto 1.91 K/uL Normal 1.57-6.19 [facility] Comment on above: Performed By: #### C HM7, HFP, MGO #### [facility] (DEFAULT) [address] [place] [address] 45433 WBC (Bld) [#/Vol] 3.62 10*3/uL Low 3.73-10.10 [facility] Comment on above: Performed By: #### C HM7, HFP, MGO #### [facility] (DEFAULT) [address] [place] [address] CHEM 7 (LYTES,BUN,CREA,GLUC) on 01-16-2024 Anion gap [Moles/Vol] 11 mmol/L 7 - 17 mmol/L [facility] Chloride [Moles/Vol] 108 mmol/L 98 - 10 8 mmol/L [facility] CO2 [Moles/Vol] 24 mmol/L 21 - 31 mmol/L [facility] Creatinine [Mass/Vol] 1.04 mg/dL 0.70 - 1.30 mg/dL [facility] eGFR, CKD-EPI, Male 86 - PINF [facility] Comment on above: Reported eGFR is bas ed on the CKD-EPI 2020 equation using creatinine, age, and sex. Glucose [Mass/Vol] 95 mg/dL 70 - 99 mg/dL [facility] Osmolality Calc [Osmolality] 293 [facility] Potassium [Moles/Vol] 4.0 mmol/L 3.5 - 5.0 mmol/L [facility] Sodium [Moles/Vol] 139 mmol/L 135 - 145 mmol/L [facility] Urea nitrogen [Mass/Vol] 19 mg/dL 7 - 25 mg/dL [facility] Urea nitrogen/Creatinine [Mass ratio] 18 mg/mg [facility] Anion gap [Moles/Vol] 11 mmol/L Normal 7-17 [facility] Comment on above: Performed By: #### Chinedu Feliz, CHM7, HFP, IPB, MGO #### [facility] (DEFAULT) [address] [place] [address] Chloride [Moles/Vol] 108 mmol/L Normal 98-108 [facility] Comment on above: Performed By: #### Chinedu Feliz, CHM7, HFP, IPB, MGO #### [facility] (DEFAULT) [address] [place] [address] 93029 CO2 [Moles/Vol] 24 mmol/L Normal 21-31 [facility] Comment on above: Performed By: #### C A, CHM7, HFP, IPB, MGO #### U [facility] (DEFAULT) [address] [place] [address] 72803 Creatinine [Mass/Vol] 1.04 mg/dL Normal 0.70-1.30 [facility] Comment on above: Performed By: #### C A, CHM7, HFP, IPB, MGO #### [facility] (DEFAULT) [address] [place] [address] 82032 GFR/1.73 sq M.predicted among non-blacks MDRD (S/P/Bld) [Vol rate/Area] 86 mL/min/{1.73_m2} Normal >=60 [facility] Comment on above: Result Comment: Repo rted eGFR is based on the CKD-EPI 2020 equation using creatinine, age, and sex. Performed By: #### C A, CHM7, HFP, IPB, MGO #### [facility] (DEFAULT) [address] [place] [address] 84827 Glucose [Mass/Vol] 95 mg/dL Normal 70-99 [facility] Comment on above: Performed By: #### C A, CHM7, HFP, IPB, MGO #### [facility] (DEFAULT) [address] [place] [address] 03827 Osmolality [Osmolality] 293 mosm/kg Normal 278-305 [facility] Comment on above: Performed By: #### C A, CHM7, HFP, IPB, MGO #### [facility] (DEFAULT) [address] [place] [address] 00192 Potassium [Moles/Vol] 4.0 mmol/L Normal 3.5-5.0 [facility] Comment on above: Performed By: #### C A, CHM7, HFP, IPB, MGO #### [facility] (DEFAULT) [address] [place] [address] 25365 Sodium [Moles/Vol] 139 mmol/L Normal 135-145 [facility] Comment on above: Performed By: #### C A, CHM7, HFP, IPB, MGO #### [facility] (DEFAULT) [address] [place] [address] 62586 Urea nitrogen [Mass/Vol] 19 mg/dL Normal 7-25 [facility] Comment on above: Performed By: #### C A, CHM7, HFP, IPB, MGO #### [facility] (DEFAULT) [address] [place] [address] 26754 Urea nitrogen/Creatinine [Mass ratio] 18 mg/mg Normal [facility] Comment on above: Performed By: #### C A, CHM7, HFP, IPB, MGO #### [facility] (DEFAULT) [address] [place] [address] 12561 D-DIMER,QUANTITATIVEOrdered By: Shaji Kelly on 01-16-2024 Fibrin D-dimer FEU (PPP) [Mass/Vol] 0.[address] [facility] Comment on above: The D-Dimer assay is intended for use in conjuction with a clinical pretest probability (PTP) assessment model to exclude pulmonary embolism (PE) and as an aid in the diagnosis of Deep Vein Thrombosis (DVT) in outpatients suspected of PE or DVT. For the assay in use at [facility] ([facility]), a cutoff of <0.50 mcg/mL has a Negative Predictive Value of 99.7% for exclusion of DVT in low and moderate PTP patients. Interpretation and review of laboratory results Abnormal [facility] D-DIMER,QUANTITATIVEon 01-16 D-Dimer, High Sensitivity 0.67 mcg/mL FEU High <0.50 [facility] Comment on above: Result Comment: The D-Dimer assay is intended for use in conjuction with a clinical pretest probability (PTP) assessment model to exclude pulmonary embolism (PE) and as an aid in the diagnosis of Deep Vein Thrombosis (DVT) in outpatients suspected of PE or DVT. For the assay in use at [facility] ([facility]), a cutoff of <0.50 mcg/mL has a Negative Predictive Value of 99.7% for exclusion of DVT in low and moderate PTP patients. Performed By: #### C HM7, HFP, MGO #### [facility] (DEFAULT) [address] [place] [address] 07138 HEPATIC FUNCTION PANELon Albumin [Mass/Vol] 3.7 g/dL 3.5 - 5.0 g/dL [facility] ALP [Catalytic activity/Vol] 70 U/L 32 - 126 U/L [facility] ALT [Catalytic activity/Vol] 8 U/L Low 10 - 52 U/L [facility] AST [Catalytic activity/Vol] 21 U/L 10 - 39 U/L [facility] Bilirubin [Mass/Vol] 1.9 mg/dL High NINF - 1.5 mg/dL [facility] Bilirubin.direct [Mass/Vol] 0.4 mg/dL High NINF - 0.3 mg/dL [facility] Protein [Mass/Vol] 6.1 g/dL Low 6.4 - 8.3 g/dL [facility] Albumin [Mass/Vol] 3.7 g/dL Normal 3.5-5.0 [facility] Comment on above: Performed By: #### C A, CHM7, HFP, IPB, MGO #### [facility] (DEFAULT) [address] [place] [address] ALP [Catalytic activity/Vol] 70 U/L Normal 32-126 [facility] Comment on above: Performed By: #### C A, CHM7, HFP, IPB, MGO #### [facility] (DEFAULT) [address] [place] [address] ALT [Catalytic activity/Vol] 8 U/L Low 10-52 [facility] Comment on above: Performed By: #### C A, CHM7, HFP, IPB, MGO #### [facility] (DEFAULT) [address] [place] [address] 70150 AST [Catalytic activity/Vol] 21 U/L Normal 10-39 [facility] Comment on above: Performed By: #### C A, CHM7, HFP, IPB, MGO #### [facility] (DEFAULT) [address] [place] [address] 11241 Bilirubin [Mass/Vol] 1.9 mg/dL High <1.5 [facility] Comment on above: Performed By: #### C A, CHM7, HFP, IPB, MGO #### [facility] (DEFAULT) [address] [place] [address] 84597 Bilirubin.indirect [Mass/Vol] 0.4 mg/dL High <0.3 [facility] Comment on above: Performed By: #### C A, CHM7, HFP, IPB, MGO #### [facility] (DEFAULT) [address] [place] [address] 76973 Protein [Mass/Vol] 6.1 g/dL Low 6.4-8.3 [facility] Comment on above: Performed By: #### C A, CHM7, HFP, IPB, MGO #### [facility] (DEFAULT) [address] [place] [address] 23288 MAGNESIUMon 01-16-2024 Magnesium [Mass/Vol] 1.7 mg/dL 1.6 - 2 .6 mg/dL [facility] Magnesium [Mass/Vol] 1.7 mg/dL Normal 1.6-2.6 [facility] Comment on above: Performed By: #### C A, CHM7, HFP, IPB, MGO #### [facility] (DEFAULT) [address] [place] [address] 82779 No Panel Informationon 01-16 Interpretation and review of laboratory results Abnormal [facility] Interpretation and review of laboratory results [facility] PHOSPHATE, INORGANICon 01-16 Phosphate [Mass/Vol] 4.1 mg/dL 2.2 - 4 .6 mg/dL [facility] Phosphorous 4.1 mg/dL Normal 2.2-4.6 [facility] Comment on above: Performed By: #### C A, CHM7, HFP, IPB, MGO #### [facility] (DEFAULT) [address] [place] [address] 64769 PT,INR,PTTon 01-16-2024 aPTT Coag (PPP) [Time] 29.6 s [facility] INR Coag (Bld) [Relative time] 1.2 {INR} High 0.9 - 1.1 [facility] Interpretation and review of laboratory results Abnormal [facility] PT Coag (PPP) [Time] 14.9 s High [facility] aPTT Coag (Bld) [Time] 29.6 s Normal 24.0-34.3 [facility] Comment on above: Performed By: #### C HM7, HFP, MGO #### [facility] (DEFAULT) [address] [place] [address] 89384 INR Coag (PPP) [Relative time] 1.2 {INR} High 0.9-1.1 [facility] Comment on above: Performed By: #### C HM7, HFP, MGO #### [facility] (DEFAULT) [address] [place] [address] 88878 PT Coag (PPP) [Time] 14.9 s High 11.9-14.2 [facility] Comment on above: Performed By: #### C HM7, HFP, MGO #### [facility] (DEFAULT) [address] [place] [address] 56274 TACROLIMUS LEVEL, TROUGH (WI E DRUG LEVEL)Ordered By: Jimy Castillo on 01-16-2024 Interpretation and review of laboratory results Normal [facility] Tacrolimus (Bld) [Mass/Vol] 5.7 ng/mL Bone Marrow Transplant: 4.0-12.0, Therapeutic: 5.0-15.0 [facility] Method performed is a chemiluminescent microparticle immunoasssay on the [employer] i2000. The range is based on experience at [facility] and users should be aware that target concentrations vary widely depending on concomitant therapy, time post-transplant, and desired degree of immunosuppression. [facility] TACROLIMUS LEVEL, TROUGH (WI E DRUG LEVEL)on 01-16-2024 Tacrolimus, Trough 5.7 ng/mL Normal Bone Susana ow Transplant: 4.0-12.0, Therapeutic: 5.0-15.0 [facility] Comment on above: Order Comment: Pleas e draw at specified interval PRIOR to dose. Do not hold dose to wait for level. Specimens batched twice per day, (M-F) and once per day weekendsMethod performed is a chemiluminescent microparticle immunoasssay on the [employer] i2000.The range is based on experience at [facility] and users should be aware that target concentrations vary widely depending on concomitant therapy, time post-transplant, and desired degree of immunosuppression. Performed By: #### C A, CHM7, HFP, IPB, MGO #### [facility] (DEFAULT) [address] [place] [address] US ABDOMEN LIVER DOPPLERon 0 01-16-2024 US [...] effusion. Trace right upper quadrant ascites. Normal [facility] US.doppler Abdominal vessels on 01-16-2024 IMPRESSION: 1. [...] pleural effusion. Trace right upper quadrant ascites. [facility] Radiology Study observation (narrative) [facility] US.doppler Abdominal vessels Ordered By: Iona Duran on 01-16-2024 [facility] Work Phone: XR CHEST PA AND LATERAL [...] Normal IMPRESSION: Moderate right pleural effusion. Normal [facility] XR Chest PA and Lateralon IMPRESSION: Moderate [...] Normal IMPRESSION IMPRESSION: Moderate right pleural effusion. [facility] Radiology Study observation (narrative) [facility] XR Chest PA and LateralOrder ed By: Daisha Patterson on 01-16-2024 [facility] Work Phone: ALL CBC WITH AUTO DIFFon BASOPHILS ABSOLUTE AUTO 0.0 [facility] Basophils/100 WBC (Bld) 0.5 % 0.2 - 2.0 % [facility] Eosinophils/100 WBC (Bld) 2.8 % 0.9 - 7.0 % [facility] Erythrocyte distribution width (RBC) [Ratio] 13.8 % 11.0 - 15.0 % [facility] Hematocrit (Bld) [Volume fraction] 43.7 % 42.0 - 54.0 % [facility] Hemoglobin (Bld) [Mass/Vol] 14.0 g/dL 14.0 - 18.0 g/dL [facility] IMMATURE GRANULOCYTES ABS AUTO 0.01 [facility] Immature granulocytes/100 WBC (Bld) 0.3 % 0.0 - 0.5 % [facility] LYMPHOCYTES ABSOLUTE AUTO 1.5 [facility] Lymphocytes/100 WBC (Bld) 37.5 % 20.5 - 60.0 % [facility] MCH (RBC) [Entitic mass] 28.4 pg 25.9 - 34.0 pg [facility] MCHC (RBC) [Mass/Vol] 32.0 g/dL 29.9 - 35.2 g/dL [facility] MCV (RBC) [Entitic vol] 88.6 fL 80.0 - 94.0 fL [facility] MONOCYTES ABSOLUTE AUTO 0.5 [facility] Monocytes/100 WBC (Bld) 11.9 % 1.7 - 12.0 % [facility] NEUTROPHILS ABSOLUTE AUTO 1.9 [facility] Neutrophils/100 WBC (Bld) 47.0 % 43.0 - 75.0 % [facility] Platelet mean volume (Bld) [Entitic vol] 10.3 fL 9.5 - 13.5 fL [facility] EO # 0.1 [facility] PLT 180 [facility] RBC 4.93 [facility] WBC 4.0 [facility] ALL CBC WITH AUTO DIFFon BASOPHILS ABSOLUTE AUTO 0.0 [facility] Basophils/100 WBC (Bld) 0.5 % 0.2 - 2.0 % [facility] Eosinophils/100 WBC (Bld) 2.6 % 0.9 - 7.0 % [facility] Erythrocyte distribution width (RBC) [Ratio] 13.5 % 11.0 - 15.0 % [facility] Hematocrit (Bld) [Volume fraction] 43.8 % 42.0 - 54.0 % [facility] Hemoglobin (Bld) [Mass/Vol] 14.0 g/dL 14.0 - 18.0 g/dL [facility] IMMATURE GRANULOCYTES ABS AUTO 0.00 [facility] Immature granulocytes/100 WBC (Bld) 0.0 % 0.0 - 0.5 % [facility] Interpretation and review of laboratory results Abnormal [facility] LYMPHOCYTES ABSOLUTE AUTO 1.8 [facility] Lymphocytes/100 WBC (Bld) 45.2 % 20.5 - 60.0 % [facility] MCH (RBC) [Entitic mass] 27.9 pg 25.9 - 34.0 pg [facility] MCHC (RBC) [Mass/Vol] 32.0 g/dL 29.9 - 35.2 g/dL [facility] MCV (RBC) [Entitic vol] 87.4 fL 80.0 - 94.0 fL [facility] MONOCYTES ABSOLUTE AUTO 0.4 [facility] Monocytes/100 WBC (Bld) 9.6 % 1.7 - 12.0 % [facility] NEUTROPHILS ABSOLUTE AUTO 1.6 [facility] Neutrophils/100 WBC (Bld) 42.1 % Low 43.0 - 75.0 % [facility] Platelet mean volume (Bld) [Entitic vol] 9.8 fL 9.5 - 13.5 fL [facility] TBH EO # 0.1 [facility] TB PLT 180 [facility] RBC 5.01 [facility] WBC 3.9 Low [facility] CHEM 7 (LYTES,BUN,CREA,GLUC) on 09-11-2023 Anion gap [Moles/Vol] 13 mmol/L 7 - 17 mmol/L [facility] Chloride [Moles/Vol] 111 mmol/L High 98 - 10 8 mmol/L [facility] CO2 [Moles/Vol] 20 mmol/L Low 21 - 31 mmol/L [facility] Creatinine [Mass/Vol] 1.13 mg/dL 0.70 - 1.30 mg/dL [facility] eGFR, CKD-EPI, Male 78 - PINF [facility] Glucose [Mass/Vol] 109 mg/dL High 70 - 99 mg/dL [facility] Interpretation and review of laboratory results Abnormal [facility] Osmolality Calc [Osmolality] 295 [facility] Potassium [Moles/Vol] 4.3 mmol/L 3.5 - 5.0 mmol/L [facility] Sodium [Moles/Vol] 140 mmol/L 135 - 145 mmol/L [facility] Urea nitrogen [Mass/Vol] 16 mg/dL 7 - 25 mg/dL [facility] Urea nitrogen/Creatinine [Mass ratio] 14 mg/mg [facility] Anion gap [Moles/Vol] 13 mmol/L Normal 7-17 [facility] Comment on above: Performed By: #### C Tray, CHM7, HFP, IPB, MGO #### [facility] (DEFAULT) [address] [place] [address] 97833 Chloride [Moles/Vol] 111 mmol/L High 98-108 [facility] Comment on above: Performed By: #### C A, CHM7, HFP, IPB, MGO #### [facility] (DEFAULT) [address] [place] [address] 10941 CO2 [Moles/Vol] 20 mmol/L Low 21-31 [facility] Comment on above: Performed By: #### C A, CHM7, HFP, IPB, MGO #### [facility] (DEFAULT) [address] [place] [address] 83316 Creatinine [Mass/Vol] 1.13 mg/dL Normal 0.70-1.30 [facility] Comment on above: Performed By: #### C A, CHM7, HFP, IPB, MGO #### [facility] (DEFAULT) [address] [place] [address] 59084 GFR/1.73 sq M.predicted among non-blacks MDRD (S/P/Bld) [Vol rate/Area] 78 mL/min/{1.73_m2} Normal >=60 [facility] Comment on above: Result Comment: Repo rted eGFR is based on the CKD-EPI 2020 equation using creatinine, age, and sex. Performed By: #### C A, CHM7, HFP, IPB, MGO #### [facility] (DEFAULT) [address] [place] [address] 57232 Glucose [Mass/Vol] 109 mg/dL High 70-99 [facility] Comment on above: Performed By: #### C A, CHM7, HFP, IPB, MGO #### [facility] (DEFAULT) [address] [place] [address] 67061 Osmolality [Osmolality] 295 mosm/kg Normal 278-305 [facility] Comment on above: Performed By: #### C A, CHM7, HFP, IPB, MGO #### [facility] (DEFAULT) [address] [place] [address] 03212 Potassium [Moles/Vol] 4.3 mmol/L Normal 3.5-5.0 [facility] Comment on above: Performed By: #### C A, CHM7, HFP, IPB, MGO #### [facility] (DEFAULT) [address] [place] [address] 44366 Sodium [Moles/Vol] 140 mmol/L Normal 135-145 [facility] Comment on above: Performed By: #### C A, CHM7, HFP, IPB, MGO #### [facility] (DEFAULT) [address] [place] [address] Urea nitrogen [Mass/Vol] 16 mg/dL Normal 7-25 [facility] Comment on above: Performed By: #### C A, CHM7, HFP, IPB, MGO #### U [facility] (DEFAULT) [address] [place] [address] 06750 Urea nitrogen/Creatinine [Mass ratio] 14 mg/mg Normal [facility] Comment on above: Performed By: #### C A, CHM7, HFP, IPB, MGO #### U [facility] (DEFAULT) [address] [place] [address] 6[address]16 GLUCOSE POCon 09-11-2023 Glucose [Mass/Vol] 108 mg/dL High 70 - 99 mg/dL [facility] Interpretation and review of laboratory results Abnormal [facility] POC Sample Type CAPBL [facility] Legionella sp identified Org specific cx Nom (Unsp spec)on 09-11-2023 Bacteria identified Cx Nom (Unsp spec) NO GROWTH DAY 7 OF 7 [facility] MAGNESIUMon 09-11-2023 Interpretation and review of laboratory results Normal [facility] Magnesium [Mass/Vol] 1.6 mg/dL 1.6 - 2 .6 mg/dL [facility] Magnesium [Mass/Vol] 1.6 mg/dL Normal 1.6-2.6 [facility] Comment on above: Performed By: #### C Tray, CHM7, HFP, IPB, MGO #### [facility] (DEFAULT) [address] [place] [address] No Panel Informationon 09-11 [facility] TACROLIMUS LEVEL, TROUGH (WI E DRUG LEVEL)on 09-11-2023 Interpretation and review of laboratory results Normal [facility] Tacrolimus (Bld) [Mass/Vol] 11.5 ng/mL [facility] Tacrolimus, Trough 11.5 ng/mL Normal Bone Susana ow Transplant: 4.0-12.0, Therapeutic: 5.0-15.0 [facility] Comment on above: Order Comment: Pleas e draw at specified interval PRIOR to dose. Do not hold dose to wait for level. Specimens batched twice per day, (M-F) and once per day weekendsMethod performed is a chemiluminescent microparticle immunoasssay on the [employer] i2000.The range is based on experience at [facility] and users should be aware that target concentrations vary widely depending on concomitant therapy, time post-transplant, and desired degree of immunosuppression. Performed By: #### C A, CHM7, HFP, IPB, MGO #### [facility] (DEFAULT) [address] [address] CBC,PLATELETSon 09-10-2023 Erythrocyte distribution width (RBC) [Ratio] 13.9 % 10.9 - 14.3 % [facility] Hematocrit (Bld) [Volume fraction] 40.0 % 39.6 - 48.8 % [facility] Hemoglobin (Bld) [Mass/Vol] 12.7 g/dL Low 13.4 - 16.8 g/dL [facility] Interpretation and review of laboratory results Abnormal [facility] MCH (RBC) [Entitic mass] 27.3 pg 26.1 - 33.3 pg [facility] MCHC (RBC) [Mass/Vol] 31.8 g/dL Low 31.9 - 36.5 g/dL [facility] MCV (RBC) [Entitic vol] 86.0 fL 79.0 - 94.5 fL [facility] Platelet mean volume (Bld) [Entitic vol] 9.5 fL 8.7 - 12.3 fL [facility] Platelets (Bld) [#/Vol] 225 10*3/uL 146 - 337 K/uL [facility] RBC (Bld) [#/Vol] 4.65 10*6/uL [facility] WBC (Bld) [#/Vol] 6.52 10*3/uL 3.73 - 10. 10 K/uL [facility] Hematocrit (Bld) [Volume fraction] 40.0 % Normal 39.6-48.8 [facility] Comment on above: Performed By: #### C Tray, CHM7, HFP, IPB, MGO #### [facility] (DEFAULT) [address] [address] Hemoglobin (Bld) [Mass/Vol] 12.7 g/dL Low 13.4-16.8 [facility] Comment on above: Performed By: #### C A, CHM7, HFP, IPB, MGO #### [facility] (DEFAULT) [address] [place] [address] MCV (RBC) [Entitic vol] 86.0 fL Normal 79.0-94.5 [facility] Comment on above: Performed By: #### C A, CHM7, HFP, IPB, MGO #### U [facility] (DEFAULT) [address] [place] [address]132 Mean Cell Hgb 27.3 pg Normal 26.1-33.3 [facility] Comment on above: Performed By: #### C A, CHM7, HFP, IPB, MGO #### U [facility] (DEFAULT) [address] [place] [address]60 Mean Cell Hgb Conc 31.8 g/dL Low 31.9-36.5 [facility] Comment on above: Performed By: #### Chinedu Feliz, CHM7, HFP, IPB, MGO #### [facility] (DEFAULT) [address] [place] [address] Platelet mean volume (Bld) [Entitic vol] 9.5 fL Normal 8.7-12.3 [facility] Comment on above: Performed By: #### C Tray, CHM7, HFP, IPB, MGO #### [facility] (DEFAULT) [address] [place] [address] Platelets (Bld) [#/Vol] 225 10*3/uL Normal 146-337 [facility] Comment on above: Performed By: #### C A, CHM7, HFP, IPB, MGO #### [facility] (DEFAULT) [address] [place] [address]68 RBC (Bld) [#/Vol] 4.65 10*6/uL Normal 4.38-5.83 [facility] Comment on above: Performed By: #### C A, CHM7, HFP, IPB, MGO #### [facility] (DEFAULT) [address] [place] [address]1970 RBC Distribution 13.9 % Normal 10.9-14.3 [facility] Comment on above: Performed By: #### C A, CHM7, HFP, IPB, MGO #### U [facility] (DEFAULT) [address] [place] [address] WBC (Bld) [#/Vol] 6.52 10*3/uL Normal 3.73-10.10 [facility] Comment on above: Performed By: #### C A, CHM7, HFP, IPB, MGO #### U [facility] (DEFAULT) [address] [place] [address] CHEM 7 (LYTES,BUN,CREA,GLUC) on 09-10-2023 Anion gap [Moles/Vol] 13 mmol/L 7 - 17 mmol/L [facility] Chloride [Moles/Vol] 111 mmol/L High 98 - 10 8 mmol/L [facility] CO2 [Moles/Vol] 20 mmol/L Low 21 - 31 mmol/L [facility] Creatinine [Mass/Vol] 1.27 mg/dL 0.70 - 1.30 mg/dL [facility] eGFR, CKD-EPI, Male 68 - PINF [facility] Glucose [Mass/Vol] 100 mg/dL High 70 - 99 mg/dL [facility] Osmolality Calc [Osmolality] 293 [facility] Potassium [Moles/Vol] 4.4 mmol/L 3.5 - 5.0 mmol/L [facility] Sodium [Moles/Vol] 140 mmol/L 135 - 145 mmol/L [facility] Urea nitrogen [Mass/Vol] 12 mg/dL 7 - 25 mg/dL [facility] Urea nitrogen/Creatinine [Mass ratio] 9 mg/mg [facility] Anion gap [Moles/Vol] 13 mmol/L Normal 7-17 [facility] Comment on above: Performed By: #### C HM7, HFP, MGO #### U [facility] (DEFAULT) [address] [place] [address] Chloride [Moles/Vol] 111 mmol/L High 98-108 [facility] Comment on above: Performed By: #### C JASMYNE, HFP, MGO #### U [facility] (DEFAULT) [address] [place] [address] CO2 [Moles/Vol] 20 mmol/L Low 21-31 [facility] Comment on above: Performed By: #### Chinedu HMJessica, HFP, MGO #### [facility] (DEFAULT) [address] [place] [address]27 Creatinine [Mass/Vol] 1.27 mg/dL Normal 0.70-1.30 [facility] Comment on above: Performed By: #### Chinedu HMJessica, TAVO, MGO #### [facility] (DEFAULT) [address] [place] [address] GFR/1.73 sq M.predicted among non-blacks MDRD (S/P/Bld) [Vol rate/Area] 68 mL/min/{1.73_m2} Normal >=60 [facility] Comment on above: Result Comment: Repo rted eGFR is based on the CKD-EPI 2020 equation using creatinine, age, and sex. Performed By: #### Chinedu MEDLEY, TAVO, MGO #### U [facility] (DEFAULT) [address] [place] [address]42 Glucose [Mass/Vol] 100 mg/dL High 70-99 [facility] Comment on above: Performed By: #### Chinedu MEDLEY, HFP, MGO #### [facility] (DEFAULT) [address] [place] [address]197 Osmolality [Osmolality] 293 mosm/kg Normal 278-305 [facility] Comment on above: Performed By: #### Chinedu HMJessica, HFP, MGO #### U [facility] (DEFAULT) [address] [place] [address]607 Potassium [Moles/Vol] 4.4 mmol/L Normal 3.5-5.0 [facility] Comment on above: Performed By: #### Chinedu HMJessica, HFP, MGO #### U [facility] (DEFAULT) [address] [place] [address] Sodium [Moles/Vol] 140 mmol/L Normal 135-145 [facility] Comment on above: Performed By: #### C HM7, HFP, MGO #### U [facility] (DEFAULT) [address] [place] [address] 97021 Urea nitrogen [Mass/Vol] 12 mg/dL Normal 7-25 [facility] Comment on above: Performed By: #### C HM7, HFP, MGO #### U [facility] (DEFAULT) [address] [place] [address] 25169 Urea nitrogen/Creatinine [Mass ratio] 9 mg/mg Normal [facility] Comment on above: Performed By: #### C HM7, HFP, MGO #### [facility] (DEFAULT) [address] [place] [address] 78864 HEPATIC FUNCTION PANELon Albumin [Mass/Vol] 3.3 g/dL Low 3.5 - 5.0 g/dL [facility] ALP [Catalytic activity/Vol] 143 U/L High 32 - 126 U/L [facility] ALT [Catalytic activity/Vol] 28 U/L 10 - 52 U/L [facility] AST [Catalytic activity/Vol] 29 U/L 10 - 39 U/L [facility] Bilirubin [Mass/Vol] 0.9 mg/dL NINF - 1.5 mg/dL [facility] Bilirubin.direct [Mass/Vol] 0.2 mg/dL NINF - 0.3 mg/dL [facility] Protein [Mass/Vol] 6.8 g/dL 6.4 - 8.3 g/dL [facility] Albumin [Mass/Vol] 3.3 g/dL Low 3.5-5.0 [facility] Comment on above: Performed By: #### C HM7, HFP, MGO #### [facility] (DEFAULT) [address] [place] [address] ALP [Catalytic activity/Vol] 143 U/L High 32-126 [facility] Comment on above: Performed By: #### C HM7, HFP, MGO #### [facility] (DEFAULT) [address] [place] [address] 99041 ALT [Catalytic activity/Vol] 28 U/L Normal 10-52 [facility] Comment on above: Performed By: #### Chinedu HM7, HFP, MGO #### [facility] (DEFAULT) [address] [place] [address] 89802 AST [Catalytic activity/Vol] 29 U/L Normal 10-39 [facility] Comment on above: Performed By: #### Chinedu HM7, HFP, MGO #### [facility] (DEFAULT) [address] [place] [address] Bilirubin [Mass/Vol] 0.9 mg/dL Normal <1.5 [facility] Comment on above: Performed By: #### Chinedu HM7, HFP, MGO #### [facility] (DEFAULT) [address] [place] [address] Bilirubin.indirect [Mass/Vol] 0.2 mg/dL Normal <0.3 [facility] Comment on above: Performed By: #### Chinedu HM7, HFP, MGO #### [facility] (DEFAULT) [address] [place] [address] Protein [Mass/Vol] 6.8 g/dL Normal 6.4-8.3 [facility] Comment on above: Performed By: #### C HM7, HFP, MGO #### [facility] (DEFAULT) [address] [place] [address] MAGNESIUMon 09-10-2023 Interpretation and review of laboratory results Normal [facility] Magnesium [Mass/Vol] 1.9 mg/dL 1.6 - 2 .6 mg/dL [facility] Magnesium [Mass/Vol] 1.9 mg/dL Normal 1.6-2.6 [facility] Comment on above: Performed By: #### C HM7, HFP, MGO #### [facility] (DEFAULT) [address] [place] [address] No Panel Informationon 09-10 Interpretation and review of laboratory results Abnormal [facility] TACROLIMUS LEVEL, TROUGH (WI E DRUG LEVEL)Ordered By: Jimy Castillo on 09-10-2023 Interpretation and review of laboratory results Normal [facility] Tacrolimus (Bld) [Mass/Vol] 11.8 ng/mL [facility] TACROLIMUS LEVEL, TROUGH (WI E DRUG LEVEL)on 09-10-2023 Tacrolimus, Trough 11.8 ng/mL Normal Bone Susana ow Transplant: 4.0-12.0, Therapeutic: 5.0-15.0 [facility] Comment on above: Order Comment: Pleas e draw at specified interval PRIOR to dose. Do not hold dose to wait for level. Specimens batched twice per day, (M-F) and once per day weekendsMethod performed is a chemiluminescent microparticle immunoasssay on the [employer] i2000.The range is based on experience at [facility] and users should be aware that target concentrations vary widely depending on concomitant therapy, time post-transplant, and desired degree of immunosuppression. Performed By: #### C HM7, HFP, MGO #### [facility] (DEFAULT) [address] [place] [address] CHEM 7 (LYTES,BUN,CREA,GLUC) on 09-09-2023 Anion gap [Moles/Vol] 14 mmol/L 7 - 17 mmol/L [facility] Chloride [Moles/Vol] 113 mmol/L High 98 - 10 8 mmol/L [facility] CO2 [Moles/Vol] 18 mmol/L Low 21 - 31 mmol/L [facility] Creatinine [Mass/Vol] 1.03 mg/dL 0.70 - 1.30 mg/dL [facility] eGFR, CKD-EPI, Male 87 - PINF [facility] Glucose [Mass/Vol] 106 mg/dL High 70 - 99 mg/dL [facility] Interpretation and review of laboratory results Abnormal [facility] Osmolality Calc [Osmolality] 294 [facility] Potassium [Moles/Vol] 4.0 mmol/L 3.5 - 5.0 mmol/L [facility] Sodium [Moles/Vol] 141 mmol/L 135 - 145 mmol/L [facility] Urea nitrogen [Mass/Vol] 10 mg/dL 7 - 25 mg/dL [facility] Urea nitrogen/Creatinine [Mass ratio] 10 mg/mg [facility] MAGNESIUMon 09-09-2023 Magnesium [Mass/Vol] 1.6 mg/dL 1.6 - 2 .6 mg/dL [facility] No Panel Informationon 09-09 Interpretation and review of laboratory results Normal [facility] PHOSPHATE, INORGANICon 09-09 Phosphate [Mass/Vol] 3.8 mg/dL 2.2 - 4 .6 mg/dL [facility] TACROLIMUS LEVEL, TROUGH (WI E DRUG LEVEL)on 09-09-2023 Interpretation and review of laboratory results Normal [facility] Tacrolimus (Bld) [Mass/Vol] 9.2 ng/mL [facility] CBC,PLATELETSon 09-08-2023 Erythrocyte distribution width (RBC) [Ratio] 13.6 % 10.9 - 14.3 % [facility] Hematocrit (Bld) [Volume fraction] 36.1 % Low 39.6 - 48.8 % [facility] Hemoglobin (Bld) [Mass/Vol] 11.6 g/dL Low 13.4 - 16.8 g/dL [facility] Interpretation and review of laboratory results Abnormal [facility] MCH (RBC) [Entitic mass] 27.4 pg 26.1 - 33.3 pg [facility] MCHC (RBC) [Mass/Vol] 32.1 g/dL 31.9 - 36.5 g/dL [facility] MCV (RBC) [Entitic vol] 85.1 fL 79.0 - 94.5 fL [facility] Platelet mean volume (Bld) [Entitic vol] 9.5 fL 8.7 - 12.3 fL [facility] Platelets (Bld) [#/Vol] 182 10*3/uL 146 - 337 K/uL [facility] RBC (Bld) [#/Vol] 4.24 10*6/uL Low [facility] WBC (Bld) [#/Vol] 4.59 10*3/uL 3.73 - 10. 10 [facility] CHEM 7 (LYTES,BUN,CREA,GLUC) on 09-08-2023 Anion gap [Moles/Vol] 12 mmol/L 7 - 17 mmol/L [facility] Chloride [Moles/Vol] 113 mmol/L High 98 - 10 8 mmol/L [facility] CO2 [Moles/Vol] 21 mmol/L 21 - 31 mmol/L [facility] Creatinine [Mass/Vol] 1.14 mg/dL 0.70 - 1.30 mg/dL [facility] eGFR, CKD-EPI, Male 77 - PINF [facility] Glucose [Mass/Vol] 107 mg/dL High 70 - 99 mg/dL [facility] Osmolality Calc [facility]olality] [facility] Potassium [Moles/Vol] 3.9 mmol/L 3.5 - 5.0 mmol/L [facility] Sodium [Moles/Vol] 142 mmol/L 135 - 145 mmol/L [facility] Urea nitrogen [Mass/Vol] 11 mg/dL 7 - 25 mg/dL [facility] Urea nitrogen/Creatinine [Mass ratio] 10 mg/mg [facility] HEPATIC FUNCTION PANELon Albumin [Mass/Vol] 2.9 g/dL Low 3.5 - 5.0 g/dL [facility] ALP [Catalytic activity/Vol] 133 U/L High 32 - 126 U/L [facility] ALT [Catalytic activity/Vol] 23 U/L 10 - 52 U/L [facility] AST [Catalytic activity/Vol] 23 U/L 10 - 39 U/L [facility] Bilirubin [Mass/Vol] 0.8 mg/dL NINF - 1.5 mg/dL [facility] Bilirubin.direct [Mass/Vol] 0.2 mg/dL NINF - 0.3 mg/dL [facility] Protein [Mass/Vol] 5.9 g/dL Low 6.4 - 8.3 g/dL [facility] MAGNESIUMon 09-08-2023 Interpretation and review of laboratory results Normal [facility] Magnesium [Mass/Vol] 1.8 mg/dL 1.6 - 2 .6 mg/dL [facility] No Panel Informationon 09-08 Interpretation and review of laboratory results Abnormal [facility] PHOSPHATE, INORGANICon 09-08 Interpretation and review of laboratory results Normal [facility] Phosphate [Mass/Vol] 4.1 mg/dL 2.2 - 4 .6 mg/dL [facility] TACROLIMUS LEVEL, TROUGH (WI E DRUG LEVEL)on 09-08-2023 Interpretation and review of laboratory results Normal [facility] Tacrolimus (Bld) [Mass/Vol] 8.5 ng/mL [facility] CBC,PLATELETSon 09-07-2023 Erythrocyte distribution width (RBC) [Ratio] 13.5 % 10.9 - 14.3 % [facility] Hematocrit (Bld) [Volume fraction] 37.1 % Low 39.6 - 48.8 % [facility] Hemoglobin (Bld) [Mass/Vol] 11.9 g/dL Low 13.4 - 16.8 g/dL [facility] Interpretation and review of laboratory results Abnormal [facility] MCH (RBC) [Entitic mass] 27.7 pg 26.1 - 33.3 pg [facility] MCHC (RBC) [Mass/Vol] 32.1 g/dL 31.9 - 36.5 g/dL [facility] MCV (RBC) [Entitic vol] 86.5 fL 79.0 - 94.5 fL [facility] Platelet mean volume (Bld) [Entitic vol] 9.6 fL 8.7 - 12.3 fL [facility] Platelets (Bld) [#/Vol] 176 10*3/uL 146 - 337 K/uL [facility] RBC (Bld) [#/Vol] 4.29 10*6/uL Low [facility] WBC (Bld) [#/Vol] 4.10 10*3/uL 3.73 - 10. 10 K/uL [facility] CHEM 7 (LYTES,BUN,CREA,GLUC) on 09-07-2023 Anion gap [Moles/Vol] 13 mmol/L 7 - 17 mmol/L [facility] Chloride [Moles/Vol] 113 mmol/L High 98 - 10 8 mmol/L [facility] CO2 [Moles/Vol] 19 mmol/L Low 21 - 31 mmol/L [facility] Creatinine [Mass/Vol] 1.22 mg/dL 0.70 - 1.30 mg/dL [facility] eGFR, CKD-EPI, Male 71 - PINF [facility] Glucose [Mass/Vol] 107 mg/dL High 70 - 99 mg/dL [facility] Osmolality Calc [Osmolality] 295 [facility] Potassium [Moles/Vol] 3.9 mmol/L 3.5 - 5.0 mmol/L [facility] Sodium [Moles/Vol] 141 mmol/L 135 - 145 mmol/L [facility] Urea nitrogen [Mass/Vol] 13 mg/dL 7 - 25 mg/dL [facility] Urea nitrogen/Creatinine [Mass ratio] 11 mg/mg [facility] HEPATIC FUNCTION PANELon Albumin [Mass/Vol] 2.9 g/dL Low 3.5 - 5.0 g/dL [facility] ALP [Catalytic activity/Vol] 111 U/L 32 - 126 U/L [facility] ALT [Catalytic activity/Vol] 18 U/L 10 - 52 U/L [facility] AST [Catalytic activity/Vol] 23 U/L 10 - 39 U/L [facility] Bilirubin [Mass/Vol] 0.8 mg/dL NINF - 1.5 mg/dL [facility] Bilirubin.direct [Mass/Vol] 0.3 mg/dL High NINF - 0.3 mg/dL [facility] Protein [Mass/Vol] 6.0 g/dL Low 6.4 - 8.3 g/dL [facility] MAGNESIUMon 09-07-2023 Interpretation and review of laboratory results Normal [facility] Magnesium [Mass/Vol] 1.7 mg/dL 1.6 - 2 .6 mg/dL [facility] No Panel Informationon 09-07 Interpretation and review of laboratory results Abnormal [facility] PHOSPHATE, INORGANICon 09-07 Interpretation and review of laboratory results Normal [facility] Phosphate [Mass/Vol] 4.4 mg/dL 2.2 - 4 .6 mg/dL [facility] TACROLIMUS LEVEL, TROUGH (WI E DRUG LEVEL)Ordered By: Elizabeth Maldonado on 09-07-2023 Interpretation and review of laboratory results Normal [facility] Tacrolimus (Bld) [Mass/Vol] 7.8 ng/mL [facility] CBC,PLATELETSon 09-06-2023 Erythrocyte distribution width (RBC) [Ratio] 13.4 % 10.9 - 14.3 % [facility] Hematocrit (Bld) [Volume fraction] 38.4 % Low 39.6 - 48.8 % [facility] Hemoglobin (Bld) [Mass/Vol] 11.9 g/dL Low 13.4 - 16.8 g/dL [facility] Interpretation and review of laboratory results Abnormal [facility] MCH (RBC) [Entitic mass] 26.6 pg 26.1 - 33.3 pg [facility] MCHC (RBC) [Mass/Vol] 31.0 g/dL Low 31.9 - 36.5 g/dL [facility] MCV (RBC) [Entitic vol] 85.9 fL 79.0 - 94.5 fL [facility] Platelet mean volume (Bld) [Entitic vol] 9.7 fL 8.7 - 12.3 fL [facility] Platelets (Bld) [#/Vol] 181 10*3/uL 146 - 337 K/uL [facility] RBC (Bld) [#/Vol] 4.47 10*6/uL [facility] WBC (Bld) [#/Vol] 4.41 10*3/uL 3.73 - 10. 10 K/uL [facility] CHEM 7 (LYTES,BUN,CREA,GLUC) on 09-06-2023 Anion gap [Moles/Vol] 14 mmol/L 7 - 17 mmol/L [facility] Chloride [Moles/Vol] 109 mmol/L High 98 - 10 8 mmol/L [facility] CO2 [Moles/Vol] 19 mmol/L Low 21 - 31 mmol/L [facility] Creatinine [Mass/Vol] 1.26 mg/dL 0.70 - 1.30 mg/dL [facility] eGFR, CKD-EPI, Male 69 - PINF [facility] Glucose [Mass/Vol] 114 mg/dL High 70 - 99 mg/dL [facility]ality] [facility] Potassium [Moles/Vol] 4.1 mmol/L 3.5 - 5.0 mmol/L [facility] Sodium [Moles/Vol] 138 mmol/L 135 - 145 mmol/L [facility] Urea nitrogen [Mass/Vol] 16 mg/dL 7 - 25 mg/dL [facility] Urea nitrogen/Creatinine [Mass ratio] 13 mg/mg [facility] HEPATIC FUNCTION PANELon Albumin [Mass/Vol] 3.0 g/dL Low 3.5 - 5.0 g/dL [facility] ALP [Catalytic activity/Vol] 115 U/L 32 - 126 U/L [facility] ALT [Catalytic activity/Vol] 25 U/L 10 - 52 U/L [facility] AST [Catalytic activity/Vol] 31 U/L 10 - 39 U/L [facility] Bilirubin [Mass/Vol] 1.0 mg/dL NINF - 1.5 mg/dL [facility] Bilirubin.direct [Mass/Vol] 0.3 mg/dL High NINF - 0.3 mg/dL [facility] Protein [Mass/Vol] 6.3 g/dL Low 6.4 - 8.3 g/dL [facility] MAGNESIUMon 09-06-2023 Interpretation and review of laboratory results Normal [facility] Magnesium [Mass/Vol] 2.0 mg/dL 1.6 - 2 .6 mg/dL [facility] No Panel Informationon 09-06 Interpretation and review of laboratory results Abnormal [facility] TACROLIMUS LEVEL, TROUGH (WI E DRUG LEVEL)on 09-06-2023 Interpretation and review of laboratory results Normal [facility] Tacrolimus (Bld) [Mass/Vol] 6.7 ng/mL [facility] CBC,PLATELETSon 09-05-2023 Erythrocyte distribution width (RBC) [Ratio] 13.5 % 10.9 - 14.3 % [facility] Hematocrit (Bld) [Volume fraction] 35.6 % Low 39.6 - 48.8 % [facility] Hemoglobin (Bld) [Mass/Vol] 11.4 g/dL Low 13.4 - 16.8 g/dL [facility] Interpretation and review of laboratory results Abnormal [facility] MCH (RBC) [Entitic mass] 27.5 pg 26.1 - 33.3 pg [facility] MCHC (RBC) [Mass/Vol] 32.0 g/dL 31.9 - 36.5 g/dL [facility] MCV (RBC) [Entitic vol] 86.0 fL 79.0 - 94.5 fL [facility] [facility] Platelet mean volume (Bld) [Entitic vol] 10.0 fL 8.7 - 12.3 fL [facility] Platelets (Bld) [#/Vol] 170 10*3/uL 146 - 337 K/uL [facility] RBC (Bld) [#/Vol] 4.14 10*6/uL Low [facility] WBC (Bld) [#/Vol] 4.24 10*3/uL 3.73 - 10. 10 K/uL [facility] CHEM 7 (LYTES,BUN,CREA,GLUC) on 09-05-2023 Anion gap [Moles/Vol] 12 mmol/L 7 - 17 mmol/L [facility] Chloride [Moles/Vol] 107 mmol/L 98 - 10 8 mmol/L [facility] CO2 [Moles/Vol] 20 mmol/L Low 21 - 31 mmol/L [facility] Creatinine [Mass/Vol] 1.43 mg/dL High 0.70 - 1.30 mg/dL [facility] eGFR, CKD-EPI, Male 60 Low - PINF [facility] Glucose [Mass/Vol] 111 mg/dL High 70 - 99 mg/dL [facility] Osmolality Calc [Osmolality] 286 [facility] Potassium [Moles/Vol] 4.2 mmol/L 3.5 - 5.0 mmol/L [facility] Sodium [Moles/Vol] 135 mmol/L 135 - 145 mmol/L [facility] Urea nitrogen [Mass/Vol] 18 mg/dL 7 - 25 mg/dL [facility] Urea nitrogen/Creatinine [Mass ratio] 13 mg/mg [facility] CONTINUOUS CARDIAC MONITORIN G STRIPon 09-05-2023 [facility] HEPATIC FUNCTION PANELon Albumin [Mass/Vol] 2.8 g/dL Low 3.5 - 5.0 g/dL [facility] ALP [Catalytic activity/Vol] 103 U/L 32 - 126 U/L [facility] ALT [Catalytic activity/Vol] 26 U/L 10 - 52 U/L [facility] AST [Catalytic activity/Vol] 38 U/L 10 - 39 U/L [facility] Bilirubin [Mass/Vol] 0.9 mg/dL NINF - 1.5 mg/dL [facility] Bilirubin.direct [Mass/Vol] 0.1 mg/dL NINF - 0.3 mg/dL [facility] Protein [Mass/Vol] 6.1 g/dL Low 6.4 - 8.3 g/dL [facility] HISTOPLASMA ANTIGEN, FLUIDon 09-05-2023 FH SOURCE BAL RML [facility] Histo FLD interpretation Negative [facility] Histoplasma Antigen, FLUID Not detected ng/mL [facility] HISTOPLASMA CAPSULATUM/BLAST OMYCES SPECIES,PCR FLUIDon 09-05-2023 HISTO/BLASTO RESULT Negative Not Applicable [facility] Specimen source Nom (Unsp spec) BAL RML [facility] IMMUNOPHENOTYPING, TISSUE/FL UIDon 09-05-2023 BKR DX CODE Use Ordering [facility] Flow Interpretation See Comment [facility] Flow Interpreted by: Yossi Perla MD, PhD [facility] MAGNESIUMon 09-05-2023 Interpretation and review of laboratory results Normal [facility] Magnesium [Mass/Vol] 1.7 mg/dL 1.6 - 2 .6 mg/dL [facility] No Panel Informationon 09-05 Interpretation and review of laboratory results Abnormal [facility] TACROLIMUS LEVEL, TROUGH (WI E DRUG LEVEL)Ordered By: Raymundo Mehta on 09-05-2023 Interpretation and review of laboratory results Normal [facility] Tacrolimus (Bld) [Mass/Vol] 5.3 ng/mL [facility] ARTERIAL BLOOD GAS (FULL GOSS EL)on 09-04-2023 Base excess Calc (Bld) [Moles/Vol] -1.2000 mmol/L -3.0 - 3.0 mmol/L [facility] Calcium.ionized (Bld) [Mass/Vol] 4.79 mg/dL 4.60 - 5.30 mg/dL [facility] Carboxyhemoglobin (Bld) [Mass fraction] 0.7 % NINF - 1.5 % [facility] CO2 (Bld) [Partial pressure] 30 mm[Hg] Low [facility] Glucose [Mass/Vol] 159 mg/dL High 70 - 99 mg/dL [facility] HCO3 (Bld) [Moles/Vol] 22 mmol/L 22 - 28 mmol/L [facility] Hematocrit (Bld) [Volume fraction] 38.0 % Low 40.2 - 50.4 % [facility] Hemoglobin (Bld) [Mass/Vol] 12.6 g/dL Low 13.4 - 16.8 g/dL [facility] Interpretation and review of laboratory results Abnormal [facility] Lactate [Moles/Vol] 2.0 mmol/L High 0.5 - 1. 6 mmol/L [facility] Methemoglobin (Bld) [Mass fraction] 0.0 % [facility] Oxygen (Bld) [Partial pressure] 62 mm[Hg] Low [facility] Oxygen saturation in Blood 92 % Low 94 - 98 % [facility] Oxyhemoglobin 91 % Low 94 - 98 % [facility] pH (Bld) 7.48 [pH] High 7.35 - 7.45 [facility] Potassium [Moles/Vol] 4.2 mmol/L 3.5 - 5.0 mmol/L [facility] Sodium [Moles/Vol] 130 mmol/L Low 135 - 145 mmol/L [facility] Specimen source Nom (Unsp spec) Arterial [facility] Bacteria identified Respirat ory culture Nom (Unsp spec)on 09-04-2023 Bacteria identified Cx Nom (Unsp spec) NO GROWTH DAY 2 OF 2 [facility] Microscopic observation Other stain Nom (Unsp spec) [facility] Microscopic observation Other stain Nom (Unsp spec) [facility]ils, [facility]scopic [facility] Other stain Nom (Unsp spec) Red Blood Cells Present [facility] Microscopic observation Other stain Nom (Unsp spec) [facility] Bacteria identified Respirat ory culture Nom (Unsp spec)Ordered By: Jose Salgado on 09-04-2023 Bacteria identified Cx Nom (Unsp spec) NO GROWTH DAY 2 OF 2 [facility] Microscopic observation Other stain Nom (Unsp spec) Cytocentrifuge preparation [facility] Microscopic observation Other stain Nom (Unsp spec) Neutrophils, Moderate [facility] Microscopic observation Other stain Nom (Unsp spec) Red Blood Cells Present [facility] Microscopic observation Other stain Nom (Unsp spec) No organisms seen [facility] CBC,PLATELETSon 09-04-2023 Erythrocyte distribution width (RBC) [Ratio] 13.2 % 10.9 - 14.3 % [facility] Hematocrit (Bld) [Volume fraction] 38.7 % Low 39.6 - 48.8 % [facility] Hemoglobin (Bld) [Mass/Vol] 12.3 g/dL Low 13.4 - 16.8 g/dL [facility] Interpretation and review of laboratory results Abnormal [facility] MCH (RBC) [Entitic mass] 27.9 pg 26.1 - 33.3 pg [facility] MCHC (RBC) [Mass/Vol] 31.8 g/dL Low 31.9 - 36.5 g/dL [facility] MCV (RBC) [Entitic vol] 87.8 fL 79.0 - 94.5 fL [facility] Platelet mean volume (Bld) [Entitic vol] 9.8 fL 8.7 - 12.3 fL [facility] Platelets (Bld) [#/Vol] 173 10*3/uL 146 - 337 K/uL [facility] RBC (Bld) [#/Vol] 4.41 10*6/uL [facility] WBC (Bld) [#/Vol] 4.57 10*3/uL 3.73 - 10. 10 K/uL [facility] CHEM 7 (LYTES,BUN,CREA,GLUC) on 09-04-2023 Anion gap [Moles/Vol] 16 mmol/L 7 - 17 mmol/L [facility] Chloride [Moles/Vol] 104 mmol/L 98 - 10 8 mmol/L [facility] CO2 [Moles/Vol] 18 mmol/L Low 21 - 31 mmol/L [facility] Creatinine [Mass/Vol] 1.22 mg/dL 0.70 - 1.30 mg/dL [facility] eGFR, CKD-EPI, Male 71 - PINF [facility] Glucose [Mass/Vol] 124 mg/dL High 70 - 99 mg/dL [facility] Osmolality Calc [Osmolality] 284 [facility] Potassium [Moles/Vol] 3.9 mmol/L 3.5 - 5.0 mmol/L [facility] Sodium [Moles/Vol] 134 mmol/L Low 135 - 145 mmol/L [facility] Urea nitrogen [Mass/Vol] 15 mg/dL 7 - 25 mg/dL [facility] Urea nitrogen/Creatinine [Mass ratio] 12 mg/mg [facility] CMV PCR,FLUIDS,URINE,EYE ETC on 09-04-2023 Specimen source Nom (Unsp spec) BAL LLL [facility] Specimen source Nom (Unsp spec) BAL RML [facility] HEPATIC FUNCTION PANELon Albumin [Mass/Vol] 3.0 g/dL Low 3.5 - 5.0 g/dL [facility] ALP [Catalytic activity/Vol] 112 U/L 32 - 126 U/L [facility] ALT [Catalytic activity/Vol] 22 U/L 10 - 52 U/L [facility] AST [Catalytic activity/Vol] 30 U/L 10 - 39 U/L [facility] Bilirubin [Mass/Vol] 1.2 mg/dL NINF - 1.5 mg/dL [facility] Bilirubin.direct [Mass/Vol] 0.4 mg/dL High NINF - 0.3 mg/dL [facility] Protein [Mass/Vol] 6.4 g/dL 6.4 - 8.3 g/dL [facility] LEGIONELLA PCRon 09-04-2023 Legionella sp rRNA Probe Ql (Unsp spec) Negative Not Applicable [facility] Specimen source Nom (Unsp spec) BAL RML [facility] Laboratory - Microbiology an d Antimicrobial susceptibilityon 09-04-2023 CMV DNA ESTELITA+probe Ql (Unsp spec) Negative Negative [facility] MAGNESIUMon 09-04-2023 Magnesium [Mass/Vol] 1.4 mg/dL Low 1.6 - 2 .6 mg/dL [facility] No Panel Informationon 09-04 Annotation comment [Interpretation] Narrative DNR [facility] PN Report Status DNR [facility] Pneumocystis jiroveci,PCR result Negative Not Applicable [facility] Interpretation and review of laboratory results Abnormal [facility] PNEUMOCYSTIS JIROVECI,PCRon 09-04-2023 Specimen source Nom (Unsp spec) BAL LLL [facility] Specimen source Nom (Unsp spec) BAL RML [facility] Portable XR Chest Viewson RADIOLOGY RADIOLOGY [facility] Radiology Study observation (narrative) [facility] Portable XR Chest ViewsOrder ed By: Joanie Nugent on 09-04-2023 [facility] Work Phone: TACROLIMUS LEVEL, TROUGH (WI E DRUG LEVEL)on 09-04-2023 Interpretation and review of laboratory results Abnormal [facility] Tacrolimus (Bld) [Mass/Vol] 3.6 ng/mL Low [facility] ASPERGILLUS ANTIGEN, BALon 1 Galactomannan Ag IA Qn (Unsp spec) <0.500 NINF [facility] Galactomannan Ag IA Qn (Unsp spec) <0.500 NINF [facility] BAL CONSULTOrdered By: Noa Peralta on 09-03-2023 ALVEOLAR MACROPHAGES 32 % [facility] Work Phone: Bal comments Correlation with microbiology stains and cultures is recommended. [facility] Work Phone: Bal Diff Quik Stain Quality Check Acceptable [facility] Work Phone: BKR BAL INTERPRETATION Cellular specimen comprised of alveolar macrophages and small lymphocytes. No definitive microorganisms are observed. Moderate degenerative changes. [facility] Work Phone: BKR DX CODE Use Ordering [facility] Work Phone: Eosinophils Patterson stain Ql (Unsp spec) 0 % [facility] Work Phone: Lymphocytes/100 WBC (Bld) 57 % [facility] Work Phone: Neutrophils/100 WBC Manual cnt (Bronch spec) 11 % [facility] Work Phone: Pathologist review Jame (Unsp spec) [Interp] Leonardo Peralta MD [facility] Work Phone: [facility] Work Phone: BAL CONSULTon 09-03-2023 ALVEOLAR MACROPHAGES 33 % [facility] Bal comments Correlation with microbiology stains and cultures is recommended. Correlation with viral studies is recommended. [facility] Bal Diff Quik Stain Quality Check Acceptable [facility] BKR BAL INTERPRETATION Cellular specimen comprised of alveolar macrophages and small lymphocytes. No definitive microorganisms are observed. Rare degenerating cells with changes suggestive of viral cytopathic effect are noted. Moderate degenerative changes. [facility] BKR DX CODE Use Ordering [facility] Eosinophils Patterson stain Ql (Unsp spec) 0 % [facility] Lymphocytes/100 WBC (Bld) 49 % [facility] Neutrophils/100 WBC Manual cnt (Bronch spec) 18 % [facility] Pathologist review Jame (Unsp spec) [Interp] Leonardo Peralta MD [facility] BRONCHOSCOPYon 09-03-2023 LAB, [facility] CBC,PLATELETSon 09-03-2023 Erythrocyte distribution width (RBC) [Ratio] 13.4 % 10.9 - 14.3 % [facility] Hematocrit (Bld) [Volume fraction] 39.6 % 39.6 - 48.8 % [facility] Hemoglobin (Bld) [Mass/Vol] 12.8 g/dL Low 13.4 - 16.8 g/dL [facility] Interpretation and review of laboratory results Abnormal [facility] MCH (RBC) [Entitic mass] 27.8 pg 26.1 - 33.3 pg [facility] MCHC (RBC) [Mass/Vol] 32.3 g/dL 31.9 - 36.5 g/dL [facility] MCV (RBC) [Entitic vol] 85.9 fL 79.0 - 94.5 fL [facility] Platelet mean volume (Bld) [Entitic vol] 9.4 fL 8.7 - 12.3 fL [facility] Platelets (Bld) [#/Vol] 222 10*3/uL 146 - 337 K/uL [facility] RBC (Bld) [#/Vol] 4.61 10*6/uL [facility] WBC (Bld) [#/Vol] 4.36 10*3/uL 3.73 - 10. 10 K/uL [facility] CHEM 7 (LYTES,BUN,CREA,GLUC) on 09-03-2023 Anion gap [Moles/Vol] 12 mmol/L 7 - 17 mmol/L [facility] Chloride [Moles/Vol] 104 mmol/L 98 - 10 8 mmol/L [facility] CO2 [Moles/Vol] 24 mmol/L 21 - 31 mmol/L [facility] Creatinine [Mass/Vol] 1.20 mg/dL 0.70 - 1.30 mg/dL [facility] eGFR, CKD-EPI, Male 73 - [facility] Glucose [Mass/Vol] 112 mg/dL High 70 - 99 mg/dL [facility] Osmolality Calc [Osmolality] 288 [facility] Potassium [Moles/Vol] 4.1 mmol/L 3.5 - 5.0 mmol/L [facility] Sodium [Moles/Vol] 136 mmol/L 135 - 145 mmol/L [facility] Urea nitrogen [Mass/Vol] 17 mg/dL 7 - 25 mg/dL [facility] Urea nitrogen/Creatinine [Mass ratio] 14 mg/mg [facility] CYTOLOGY, NON-GYNOrdered By: Sherice Jimenez on 09-03-2023 CYTOLOGIC DIAGNOSIS m7hixXRmTMFyxTSoWEGpX1 hajaNcWARmqZFkM8Qbgenx COprJD3hEN7erZqzaJPbcG RgSZTnVqFsh4txt538dATc v7rkTWENcnhjzMq3x0jbAZ TVlW5dl7u8bI95XIIobY2x dGJsIDtccmVkMFxncmVlbj QpIbx1RJP4fYngAllkjPB6 mZAyxBA6ITcms4SfvZsuaL glLRN2QOHrXdoyAFofvEU7 bMZihKvdwAMjMI0zf0mycG O7cmPaDLI5aIobkDV4yWxj nllyo5ccpGM5kDS2WAkkoQ F1XDxnIfNwU6lgYPWkdQ3i U78vP3bgDGDblKngESwhPQ PavNT4LSP1RMTqe9umKRBm pXTbzWScMnHhCRlnZmh4n7 irHCDdaR17pWJzhrO4aQoa AJeyrAN9UZ05LSghz9DwZH FfxZzoHUUghE7qSxLcGKgz dmVsbmZjbjIzXGxldmVsam TlCQykoyMav0MfxpTigAB9 SVwdbxAlfAT8uImwKAEhG9 Z5K460VRwbvdOydvQsRzTy ktz5CENrsQeuzOxqiLzkgh VsXGxldmVsbmZjMjNcbGV2 PZuoWsBzYpMnaCS3WGgnDt QvlOA2SMyedPIhgEE1WMas qWT8YEn2TOk0KIlhOTcsDg k3aLursAO4LVstyK4aQOOr W92bHmZ9m8rkpQE0bLW4KZ dahUT8ZCktGdYxC0thIHFm dJ7oJ12dJ7jfETVriQnrTR wfRQAwiQN9EKY7MAUip8em ZXZlbHRleHRcJzAxXCdiNz l3n3tdAJQisS79kKFhejA5 tMosSN95SOlbv5UnZWYnpU zeAFGpwO2aUaGlDNgkboDo bmZjbjIzXGxldmVsamMwXG odtoZfx1DqpgRpuZA5IAcq nsEfuIE7kAoxIXIyU0X1P7 32VYspiuFvxbCtZkLeorb7 XGYxfXtcbGlzdGxldmVsXG ziyzBtjbPjDcEadFO8CIdb YvClZdEdiNZ6MBzvZlCpeR Z1WDfnkVYnhBK1EPeelBE7 LQy7AAf1NQoePUfuHpx5zM frlWW6LLlwkQ7wSAJcZ59y YjD6a9pbfNI5nCJ5PBwxqN Y3IMgmHjDsV3ucODJlbK1t Z53eC9ntWJEdjPdaQXbsZE EwgEW0VYT8HLLbz7ycXYNy kPDnfDFuHeAoSHemWbb0b8 cvYTQtvP15rNGcfkM1bUqj UH34GXacc3AnPMUiyNirYO IdlH1uErMcCCskxwTvxlQt bjIzXGxldmVsamMwXGxldm Epw2SepyFmxVX6TAiwgwJw dJB1oMqjBJWcU1F2X572UJ nnnoEdgwTpQdEydoe4QWKi fXtcbGlzdGxldmVsXGxldm TuubUoWcHorLR1QZvbGkBw UeLtpMJ0NNjpCgQvqUM2DX gauJVkbAK6VAwuiNQ9YOy3 GEy8LVldRZvjYin1fIfyjG G3RNbxbN4nVQMnI18tBhO6 kX24EVnfjJtonD81TAQmzB BztWXocFZ4FCjgxGwavS34 LAFsbMMlAYxnp6PfXWHxCe J0MBC9OYEupQswhY01IPJk aVAuE538scDhGFyfFY36MZ BhcGVydzEyMjQwXHBhcGVy fUJ6WNElCS8vouugIPrjAM hzDMAzdeW2CVIpmZXdI8Or IIZqLJ8gekosRPZ9MJicWI QxIAE4UfNgDMLwk9Cupsu1 KjEgyMe8r9svKVRwPUSjlC cfj2tpWHV4TJEzgHOkW7yq gC6gPDUrFP9bdcgje0rfHN utBCnsDIPhzLJ2clP5IOCw vCAqY8BsaZ7pJCDbJGUfjy VkbUpikP4kZtbhizQvWLBx VPBYBvLSGd5TZ9lSYKqHLI 9MQVIgTEFWQUdFLCBMRUZU MNjRQ0NHMHsLAuIeDGZxYA PbX3pKG0lIE6ydFngtUqAx IEjzHNAyIyNcB8XpNMWumg hrBOIaGGVNPC0MOTJWPKXD Sh5RNMI8YRWnmgnztKS3VI hsmmUuxEi3iVQwvCokwC2n YlxmczIyXGNmMSBObyBNYW fbK60vxkQqK2QsfIUdLATc VQriBM46jWYeICZlvICqRT a2jE8dBDbziKultpPSfPBg yY0ujnlxHNamNiAgtSFuUY xpMFxsczBccGFyfQ== [facility] Work Phone: Case Report [facility] Work Phone: Clinical History u7mobWJiREMduUIsNODp M1 wopmTaZAEbfPCgO4Grujkn FNsrAV5jZF4xtLbucZBsgF CgGOTuAdZjw4xgx485eFFu j1jiGKMDhjslgTi7kJebV7 3uf5E6XxxkW4fyLRLtQIpt COPzSWjvfVVvSIl7GSTkeJ VydzEyMjQwXHBhcGVyaDE1 UESlPF4mojtmUOiwBWkfUB XjjlF7TTUwrFUyM8BsFZFz LC2mklfbWVQ9NNtlTJLrCV U0AwWnRRPef9Xcduv4NgHk cQs9y9zjHVWvQJLxiRzfq5 zmVNN8JBKhwODrG0apiK6k NDIbSM6rhlzqk0zfYHvaEH emXUFsjOZ5yrB9QLVmbZMp V0KspY7rEMJfLNDjltQnhA fhwK5dFjQhYOcnFoErErUa YFprmLYogqBouMAgfO8wPS Bhcn0= [facility] Work Phone: For Immediate Release to Patient's MyChart? Yes Yes [facility] Work Phone: Gross Description d7zrtHLfOISgfDPkWDVg M1 qysnAwZFLprPSeN2Hhjpih WThwGG7pIE5irVfcgGMgwX VzKYCgWkZug5sxy715eZXb f5vkUPPHxfmioZa6dZqaO3 2dl0P1ZjifB62swQVmJAS9 DXJaJJEiySWcDWKqYBM1VX MviNTtT3wiONTqDT0msaha GOsgRGtbVVXtyOC0IMGdgX KhH5VdIOGeTChgLMDxiyw0 FmHuBp5wnRHliDyrJIrbZZ JkXHBsYWluXGZzMjAgTExM IEJBTFxwYXIgMSBtbCBoYX u6KMItzG5zxPLdbjMuiGHg vM6iiRtdUZvnDLDxPCAOAC HfrGchGMSCZOJfr2LsiM7w cGFyXHBhcmRccGFyXHBhcn 0= [facility] Work Phone: [facility] Work Phone: HEPATIC FUNCTION PANELon Albumin [Mass/Vol] 3.2 g/dL Low 3.5 - 5.0 g/dL [facility] ALP [Catalytic activity/Vol] 118 U/L 32 - 126 U/L [facility] ALT [Catalytic activity/Vol] 25 U/L 10 - 52 U/L [facility] AST [Catalytic activity/Vol] 32 U/L 10 - 39 U/L [facility] Bilirubin [Mass/Vol] 1.0 mg/dL NINF - 1.5 mg/dL [facility] Bilirubin.direct [Mass/Vol] 0.3 mg/dL High NINF - 0.3 mg/dL [facility] Protein [Mass/Vol] 6.5 g/dL 6.4 - 8.3 g/dL [facility] HISTOPLASMA AND BLASTOMYCES ANTIGEN, ENZYME IMMUNOASSAY, SERMon 09-03-2023 Histoplasma/Blastomyce s Ag Result Detected Critically abnormal Not Detected [facility] Histoplasma/Blastomyce s Ag Value 5.3 ng/mL [facility] Interpretation and review of laboratory results Abnormal [facility] MAGNESIUMon 09-03-2023 Interpretation and review of laboratory results Normal [facility] Magnesium [Mass/Vol] 1.6 mg/dL 1.6 - 2 .6 mg/dL [facility] No Panel Informationon 09-03 Interpretation and review of laboratory results Abnormal [facility] PARVOVIRUS (B19) DNA, PCR, B LOODon 09-03-2023 PARVOVIRUS B19 BY RAPID PCR Not detected Not Detected [facility] [place] SPEC SOURCE Whole Blood [facility] Portable XR Chest Viewson RADIOLOGY RADIOLOGY [facility] Radiology Study observation (narrative) [facility] Portable XR Chest ViewsOrder ed By: Lester Grove on 09-03-2023 [facility] Work Phone: ASPERGILLUS (GALACTOMANNAN), ANTIGENon 09-02-2023 Galactomannan Ag IA Qn <0.500 NINF OS [facility] ATYPICAL BACTERIAL PNEUMONIA ,PCROrdered By: Shari Contreras on 09-02-2023 B. parapertussis DNA ESTELITA+probe Ql (Unsp spec) Not detected Not Detected [facility] B. pertussis DNA ESTELITA+probe Ql (Unsp spec) Not detected Not Detected [facility] C. pneumoniae DNA ESTELITA+probe Ql (Unsp spec) Not detected Not Detected [facility] Interpretation and review of laboratory results Normal [facility] M. pneumoniae DNA ESTELITA+probe Ql (Unsp spec) Not detected Not Detected [facility] BRONCHOSCOPYon 09-02-2023 Radiology Study observation (narrative) [facility] Bacteria identified Cx Nom ( Bld)on 09-02-2023 Bacteria identified Cx Nom (Unsp spec) NO GROWTH DAY 5 OF 5 [facility] CBC,PLATELETSon 09-02-2023 Erythrocyte distribution width (RBC) [Ratio] 13.2 % 10.9 - 14.3 % [facility] Hematocrit (Bld) [Volume fraction] 39.9 % 39.6 - 48.8 % [facility] Hemoglobin (Bld) [Mass/Vol] 12.9 g/dL Low 13.4 - 16.8 g/dL [facility] Interpretation and review of laboratory results Abnormal [facility] MCH (RBC) [Entitic mass] 27.9 pg 26.1 - 33.3 pg [facility] MCHC (RBC) [Mass/Vol] 32.3 g/dL 31.9 - 36.5 g/dL [facility] MCV (RBC) [Entitic vol] 86.4 fL 79.0 - 94.5 fL [facility] Platelet mean volume (Bld) [Entitic vol] 9.5 fL 8.7 - 12.3 fL [facility] Platelets (Bld) [#/Vol] 210 10*3/uL 146 - 337 K/uL [facility] RBC (Bld) [#/Vol] 4.62 10*6/uL [facility] WBC (Bld) [#/Vol] 4.12 10*3/uL 3.73 - 10. 10 K/uL [facility] CHEM 7 (LYTES,BUN,CREA,GLUC) on 09-02-2023 Anion gap [Moles/Vol] 13 mmol/L 7 - 17 mmol/L [facility] Chloride [Moles/Vol] 105 mmol/L 98 - 10 8 mmol/L [facility] CO2 [Moles/Vol] 22 mmol/L 21 - 31 mmol/L [facility] Creatinine [Mass/Vol] 1.25 mg/dL 0.70 - 1.30 mg/dL [facility] eGFR, CKD-EPI, Male 70 - PINF [facility] Glucose [Mass/Vol] 105 mg/dL High 70 - 99 mg/dL [facility] Osmolality Calc [Osmolality] [facility] Potassium [Moles/Vol] 4.3 mmol/L 3.5 - 5.0 mmol/L [facility] Sodium [Moles/Vol] 136 mmol/L 135 - 145 mmol/L [facility] Urea nitrogen [Mass/Vol] 16 mg/dL 7 - 25 mg/dL [facility] Urea nitrogen/Creatinine [Mass ratio] 13 mg/mg [facility] HEPATIC FUNCTION PANELon Albumin [Mass/Vol] 3.2 g/dL Low 3.5 - 5.0 g/dL [facility] ALP [Catalytic activity/Vol] 107 U/L 32 - 126 U/L [facility] ALT [Catalytic activity/Vol] 20 U/L 10 - 52 U/L [facility] AST [Catalytic activity/Vol] 31 U/L 10 - 39 U/L [facility] Bilirubin [Mass/Vol] 1.0 mg/dL NINF - 1.5 mg/dL [facility] Bilirubin.direct [Mass/Vol] 0.3 mg/dL High NINF - 0.3 mg/dL [facility] Protein [Mass/Vol] 6.6 g/dL 6.4 - 8.3 g/dL [facility] HISTOPLASMA ANTIGEN,URINEon 09-02-2023 H. capsulatum Ag (U) [Mass/Vol] Not detected ng/mL [facility] H. capsulatum Ag IA Ql (U) Not detected Not Detected [facility] HIV 1 AND 2 ANTIBODIES/P24 A NTIGENOrdered By: Wilma Luque on 09-02-2023 HIV 1+2 Ab+HIV1 p24 Ag IA Ql Non-Reactive Non Reactive [facility] Interpretation and review of laboratory results Normal [facility] MAGNESIUMon 09-02-2023 Interpretation and review of laboratory results Normal [facility] Magnesium [Mass/Vol] 1.7 mg/dL 1.6 - 2 .6 mg/dL [facility] No Panel Informationon 09-02 Interpretation and review of laboratory results Abnormal [facility] TACROLIMUS LEVEL, TROUGH (WI E DRUG LEVEL)on 09-02-2023 Interpretation and review of laboratory results Normal [facility] Tacrolimus (Bld) [Mass/Vol] 4.2 ng/mL [facility] CBC,PLATELETSon 09-01-2023 Erythrocyte distribution width (RBC) [Ratio] 13.4 % 10.9 - 14.3 % [facility] Hematocrit (Bld) [Volume fraction] 38.9 % Low 39.6 - 48.8 % [facility] Hemoglobin (Bld) [Mass/Vol] 12.7 g/dL Low 13.4 - 16.8 g/dL [facility] Interpretation and review of laboratory results Abnormal [facility] MCH (RBC) [Entitic mass] 27.6 pg 26.1 - 33.3 pg [facility] MCHC (RBC) [Mass/Vol] 32.6 g/dL 31.9 - 36.5 g/dL [facility] MCV (RBC) [Entitic vol] 84.6 fL 79.0 - 94.5 fL [facility] Platelet mean volume (Bld) [Entitic vol] 9.4 fL 8.7 - 12.3 fL [facility] Platelets (Bld) [#/Vol] 209 10*3/uL 146 - 337 K/uL [facility] RBC (Bld) [#/Vol] 4.60 10*6/uL [facility] WBC (Bld) [#/Vol] 4.41 10*3/uL 3.73 - 10. 10 K/uL [facility] CHEM 7 (LYTES,BUN,CREA,GLUC) on 09-01-2023 Anion gap [Moles/Vol] 14 mmol/L 7 - 17 mmol/L [facility] Chloride [Moles/Vol] 103 mmol/L 98 - 10 8 mmol/L [facility] CO2 [Moles/Vol] 21 mmol/L 21 - 31 mmol/L [facility] Creatinine [Mass/Vol] 1.16 mg/dL 0.70 - 1.30 mg/dL [facility] eGFR, CKD-EPI, Male 77 - PINF [facility] Glucose [Mass/Vol] 117 mg/dL High 70 - 99 mg/dL [facility] Osmolality Calc [Osmolality] 285 [facility] Potassium [Moles/Vol] 4.2 mmol/L 3.5 - 5.0 mmol/L [facility] Sodium [Moles/Vol] 134 mmol/L Low 135 - 145 mmol/L [facility] Urea nitrogen [Mass/Vol] 18 mg/dL 7 - 25 mg/dL [facility] [place] U[place] nitrogen/Creatinine [Mass ratio] 16 mg/mg [facility] [place] CRYPTOCOCCAL ANTIGENon 09-01 Cryptococcus sp Ag Ql (S) Negative Negative [facility] [place] Interpretation and review of laboratory results Normal [facility] HEPATIC FUNCTION PANELon Albumin [Mass/Vol] 3.3 g/dL Low 3.5 - 5.0 g/dL [facility] [place] ALP [Catalytic activity/Vol] 112 U/L 32 - 126 U/L [facility] [place] ALT [Catalytic activity/Vol] 21 U/L 10 - 52 U/L [facility] [place] AST [Catalytic activity/Vol] 29 U/L 10 - 39 U/L [facility] [place] Bilirubin [Mass/Vol] 1.0 mg/dL NINF - 1.5 mg/dL [facility] [place] Bilirubin.direct [Mass/Vol] 0.2 mg/dL NINF - 0.3 mg/dL [facility] [place] Protein [Mass/Vol] 6.8 g/dL 6.4 - 8.3 g/dL [facility] [place] L. pneumophila 1 Ag IA Ql (U )Ordered By: Carolin Miles on 09-01-2023 Interpretation and review of laboratory results Normal [facility] LEGIONELLA URINARY AGOrdered By: Carolin Miles on 09-01-2023 L. pneumophila 1 Ag IA Ql (U) Negative Negative [facility] [place] MAGNESIUMon 09-01-2023 Interpretation and review of laboratory results Normal [facility] [place] Magnesium [Mass/Vol] 1.6 mg/dL 1.6 - 2 .6 mg/dL [facility] [place] No Panel Informationon 09-01 Interpretation and review of laboratory results Abnormal [facility] CBC,PLATELETSon 08-31-2023 Erythrocyte distribution width (RBC) [Ratio] 13.3 % 10.9 - 14.3 % [facility] [place] Hematocrit (Bld) [Volume fraction] 39.4 % Low 39.6 - 48.8 % [facility] [place] Hemoglobin (Bld) [Mass/Vol] 12.8 g/dL Low 13.4 - 16.8 g/dL [facility] [place] Interpretation and review of laboratory results Abnormal [facility] [place] MCH (RBC) [Entitic mass] 27.6 pg 26.1 - 33.3 pg [facility] [place] MCHC (RBC) [Mass/Vol] 32.5 g/dL 31.9 - 36.5 g/dL [facility] [place] MCV (RBC) [Entitic vol] 85.1 fL 79.0 - 94.5 fL [facility] [place] Platelet mean volume (Bld) [Entitic vol] 9.6 fL 8.7 - 12.3 fL [facility] [place] Platelets (Bld) [#/Vol] 228 10*3/uL 146 - 337 K/uL [facility] [place] RBC (Bld) [#/Vol] 4.63 10*6/uL [facility] WBC (Bld) [#/Vol] 4.77 10*3/uL 3.73 - 10. 10 K[facility]L [facility] CHEM 7 (LYTES,BUN,CREA,GLUC) on 08-31-2023 Anion gap [Moles/Vol] 13 mmol/L 7 - 17 mmol/L [facility] [place] Chloride [Moles/Vol] 102 mmol/L 98 - 10 8 mmol[facility] CO2 [Moles/Vol] 23 mmol/L 21 - 31 mmol/L [facility] Creatinine [Mass/Vol] 1.37 mg/dL High 0.70 - 1.30 mg/dL [facility] [place] eGFR, CKD-EPI, Male 62 - [facility] Glucose [Mass/Vol] 112 mg/dL High 70 - 99 mg/dL [facility] [place] Osmolality Calc [Osmolality] 284 [facility] Potassium [Moles/Vol] 4.4 mmol/L 3.5 - 5.0 mmol/L [facility] [place] Sodium [Moles/Vol] 134 mmol/L Low 135 - 145 mmol/L [facility] [place] Urea nitrogen [Mass/Vol] 16 mg/dL 7 - 25 mg/dL [facility] [place] Urea nitrogen/Creatinine [Mass ratio] 12 mg/mg [facility] [place] CT Abdomen and Pelvis WO con traston 08-31-2023 RADIOLOGY RADIOLOGY [facility] [place] Radiology Study observation (narrative) [facility] [place] CT Abdomen and Pelvis WO con trastOrdered By: Chavez Larkin on 08-31-2023 [facility] [place] Work Phone: CT Chest WO contraston 08-31 RADIOLOGY RADIOLOGY [facility] [place] Radiology Study observation (narrative) [facility] [place] CT Chest WO contrastOrdered By: Daihsa Patterosn on 08-31-2023 [facility] [place] Work Phone: FERRITINon 08-31-2023 Ferritin [Mass/Vol] 409.0 ng/mL High 10.5 - 3 07.3 ng/mL [facility] [place] Interpretation and review of laboratory results Abnormal [facility] HEPATIC FUNCTION PANELon Albumin [Mass/Vol] 3.3 g/dL Low 3.5 - 5.0 g/dL [facility] [place] ALP [Catalytic activity/Vol] 113 U/L 32 - 126 U/L [facility] [place] ALT [Catalytic activity/Vol] 25 U/L 10 - 52 U/L [facility] [place] AST [Catalytic activity/Vol] 31 U/L 10 - 39 U/L [facility] [place] Bilirubin [Mass/Vol] 1.1 mg/dL NINF - 1.5 mg/dL [facility] [place] Bilirubin.direct [Mass/Vol] 0.3 mg/dL High NINF - 0.3 mg/dL [facility] [place] Protein [Mass/Vol] 7.0 g/dL 6.4 - 8.3 g/dL [facility] [place] MAGNESIUMon 08-31-2023 Interpretation and review of laboratory results Normal [facility] [place] Magnesium [Mass/Vol] 1.7 mg/dL 1.6 - 2 .6 mg/dL [facility] [place] No Panel Informationon 08-31 Interpretation and review of laboratory results Abnormal [facility] PROCALCITONINon 08-31-2023 Interpretation and review of laboratory results Normal [facility] [place] Procalcitonin [Mass/Vol] 0.23 ng/mL NINF - 0.50 ng/mL [facility] TACROLIMUS LEVEL, TROUGH (WI E DRUG LEVEL)Ordered By: Yanira Marcum on 08-31-2023 Interpretation and review of laboratory results Normal [facility] [place] Tacrolimus (Bld) [Mass/Vol] 5.9 ng/mL [facility] URINE CULTUREOrdered By: Jorge Lozano on 08-31-2023 Bacteria identified Cx Nom (Unsp spec) No Growth [facility] DARYL AURIS SCREEN BY PCRO rdered By: Mynor Alejandro on 10-01-2023 Daryl auris Screen by PCR Not detected Not Detected [facility] [place] Interpretation and review of laboratory results Normal [facility] CBC,PLATELETSon 08-30-2023 Erythrocyte distribution width (RBC) [Ratio] 13.3 % 10.9 - 14.3 % [facility] [place] Hematocrit (Bld) [Volume fraction] 41.3 % 39.6 - 48.8 % [facility] [place] Hemoglobin (Bld) [Mass/Vol] 13.2 g/dL Low 13.4 - 16.8 g/dL [facility] [place] Interpretation and review of laboratory results Abnormal [facility] [place] MCH (RBC) [Entitic mass] 27.3 pg 26.1 - 33.3 pg [facility] [place] MCHC (RBC) [Mass/Vol] 32.0 g/dL 31.9 - 36.5 g/dL [facility] [place] MCV (RBC) [Entitic vol] 85.5 fL 79.0 - 94.5 fL [facility] [place] Platelet mean volume (Bld) [Entitic vol] 9.2 fL 8.7 - 12.3 fL [facility] [place] Platelets (Bld) [#/Vol] 235 10*3/uL 146 - 337 K/uL [facility] [place] RBC (Bld) [#/Vol] 4.83 10*6/uL [facility] WBC (Bld) [#/Vol] 4.96 10*3/uL 3.73 - 10. 10 K/uL [facility] CHEM 7 (LYTES,BUN,CREA,GLUC) on 08-30-2023 Anion gap [Moles/Vol] 14 mmol/L 7 - 17 mmol/L [facility] [place] Chloride [Moles/Vol] 102 mmol/L 98 - 10 8 mmol/L [facility] [place] CO2 [Moles/Vol] 20 mmol/L Low 21 - 31 mmol/L [facility] [place] Creatinine [Mass/Vol] 1.56 mg/dL High 0.70 - 1.30 mg/dL [facility] eGFR, CKD-EPI, Male 54 Low - PINF [facility] Glucose [Mass/Vol] 123 mg/dL High 70 - 99 mg/dL [facility] [place] Osmolality Calc [Osmolality] 281 [facility] [place] Potassium [Moles/Vol] 4.3 mmol/L 3.5 - 5.0 mmol/L [facility] [place] Sodium [Moles/Vol] 132 mmol/L Low 135 - 145 mmol/L [facility] [place] Urea nitrogen [Mass/Vol] 16 mg/dL 7 - 25 mg/dL [facility] [place] Urea nitrogen/Creatinine [Mass ratio] 10 mg/mg [facility] [place] EXTRA MICROon 08-30-2023 [facility] [place] HEPATIC FUNCTION PANELon Albumin [Mass/Vol] 3.7 g/dL 3.5 - 5.0 g/dL [facility] [place] ALP [Catalytic activity/Vol] 115 U/L 32 - 126 U/L [facility] [place] ALT [Catalytic activity/Vol] 22 U/L 10 - 52 U/L [facility] [place] AST [Catalytic activity/Vol] 34 U/L 10 - 39 U/L [facility] [place] Bilirubin [Mass/Vol] 1.2 mg/dL NINF - 1.5 mg/dL [facility] [place] Bilirubin.direct [Mass/Vol] 0.3 mg/dL High NINF - 0.3 mg/dL [facility] [place] Protein [Mass/Vol] 7.7 g/dL 6.4 - 8.3 g/dL [facility] [place] MAGNESIUMon 08-30-2023 Interpretation and review of laboratory results Normal [facility] [place] Magnesium [Mass/Vol] 1.8 mg/dL 1.6 - 2 .6 mg/dL [facility] [place] No Panel Informationon 08-30 Interpretation and review of laboratory results Abnormal [facility] CBC,PLATELETSon 08-29-2023 Erythrocyte distribution width (RBC) [Ratio] 13.4 % 10.9 - 14.3 % [facility] [place] Hematocrit (Bld) [Volume fraction] 37.6 % Low 39.6 - 48.8 % [facility] [place] Hemoglobin (Bld) [Mass/Vol] 12.2 g/dL Low 13.4 - 16.8 g/dL [facility] [place] Interpretation and review of laboratory results Abnormal [facility] [place] MCH (RBC) [Entitic mass] 27.6 pg 26.1 - 33.3 pg [facility] [place] MCHC (RBC) [Mass/Vol] 32.4 g/dL 31.9 - 36.5 g/dL [facility] [place] MCV (RBC) [Entitic vol] 85.1 fL 79.0 - 94.5 fL [facility] [place] Platelet mean volume (Bld) [Entitic vol] 9.4 fL 8.7 - 12.3 fL [facility] [place] Platelets (Bld) [#/Vol] 233 10*3/uL 146 - 337 K/uL [facility] [place] RBC (Bld) [#/Vol] 4.42 10*6/uL [facility] WBC (Bld) [#/Vol] 4.92 10*3/uL 3.73 - 10. 10 K/uL [facility] CHEM 7 (LYTES,BUN,CREA,GLUC) on 08-29-2023 Anion gap [Moles/Vol] 13 mmol/L 7 - 17 mmol/L [facility] [place] Chloride [Moles/Vol] 105 mmol/L 98 - 10 8 mmol/L [facility] [place] CO2 [Moles/Vol] 20 mmol/L Low 21 - 31 mmol/L [facility] [place] Creatinine [Mass/Vol] 1.55 mg/dL High 0.70 - 1.30 mg/dL [facility] [place] eGFR, CKD-EPI, Male 55 Low - PINF [facility] Glucose [Mass/Vol] 108 mg/dL High 70 - 99 mg/dL [facility] [place] Osmolality Calc [Osmolality] 283 [facility] [place] Potassium [Moles/Vol] 4.5 mmol/L 3.5 - 5.0 mmol/L [facility] [place] Sodium [Moles/Vol] 133 mmol/L Low 135 - 145 mmol/L [facility] [place] Urea nitrogen [Mass/Vol] 19 mg/dL 7 - 25 mg/dL [facility] [place] Urea nitrogen/Creatinine [Mass ratio] 12 mg/mg [facility] [place] GGTon 08-29-2023 Gamma glutamyl transferase [Catalytic activity/Vol] 64 U/L 8 - 64 U/L [facility] [place] Interpretation and review of laboratory results Normal [facility] HEPATIC FUNCTION PANELon Albumin [Mass/Vol] 3.3 g/dL Low 3.5 - 5.0 g/dL [facility] [place] ALP [Catalytic activity/Vol] 103 U/L 32 - 126 U/L [facility] [place] ALT [Catalytic activity/Vol] 18 U/L 10 - 52 U/L [facility] [place] AST [Catalytic activity/Vol] 27 U/L 10 - 39 U/L [facility] [place] Bilirubin [Mass/Vol] 1.1 mg/dL NINF - 1.5 mg/dL [facility] [place] Bilirubin.direct [Mass/Vol] 0.3 mg/dL High NINF - 0.3 mg/dL [facility] [place] Protein [Mass/Vol] 6.8 g/dL 6.4 - 8.3 g/dL [facility] [place] MAGNESIUMon 08-29-2023 Interpretation and review of laboratory results Normal [facility] [place] Magnesium [Mass/Vol] 1.7 mg/dL 1.6 - 2 .6 mg/dL [facility] [place] No Panel Informationon 08-29 Interpretation and review of laboratory results Abnormal [facility] PT,INR,PTTon 08-29-2023 aPTT Coag (PPP) [Time] 29.3 s [facility] INR Coag (Bld) [Relative time] 1.1 {INR} 0.9 - 1.1 [facility] [place] Interpretation and review of laboratory results Normal [facility] [place] PT Coag (PPP) [Time] 13.8 s [facility] Portable XR Chest Viewson RADIOLOGY RADIOLOGY U [facility] Portable XR Chest ViewsOrder ed By: Gerald Baer on 08-29-2023 [facility] [place] Work Phone: TACROLIMUS LEVEL, TROUGH (W[place] E DRUG LEVEL)on 08-29-2023 Interpretation and review of laboratory results Normal [facility] Tacrolimus (Bld) [Mass/Vol] 8.9 ng/mL [facility] TACROLIMUS LEVEL, TROUGH (WI E DRUG LEVEL)Ordered By: Roxanne Louie on 08-29-2023 Interpretation and review of laboratory results Normal [facility] Tacrolimus (Bld) [Mass/Vol] 8.7 ng/mL [facility] URINALYSIS REFLEX TO CULTURE PERFORMABLEOrdered By: Shaji Kelly on 08-29-2023 Appearance (U) Clear Clear [facility] [place] Bacteria LM Ql (Urine sed) ABSENT ABSENT [facility] [place] Calcium Oxalate Crystals PRESENT [facility] [place] Color (U) Yellow Yellow [facility] [place] Epithelial cells.squamous LM Ql (Urine sed) 0-2/hpf 0-2/hpf, 3-5/hpf = 1+ [facility] [place] Glucose Test strip (U) [Mass/Vol] Negative Negative [facility] [place] Interpretation and review of laboratory results Abnormal [facility] Ketones (U) [Mass/Vol] Negative Negative [facility] Leukocyte esterase Test strip Ql (U) Negative Negative [facility] Nitrite Ql (U) Negative Negative [facility] [place] pH (U) 6.0 [pH] 5.0 - 7.0 [facility] Protein (U) [Mass/Vol] Negative Negative [facility] RBC (U) [#/Vol] Trace Abnormal [facility] RBC LM.HPF (Urine sed) [#/Area] 3-5 Abnormal [facility] [place] Specific gravity (U) [Rel density] 1.015 1.001 - 1.035 [facility] Urobilinogen (U) [Mass/Vol] 1.0 E.U./dL 0.2 E.U/dL, 1.0 E.U/dL [facility] [place] WBC LM.HPF (Urine sed) [#/Area] 0 - 5 [facility] US for transplanted kidney l imitedon 08-29-2023 RADIOLOGY RADIOLOGY [facility] [place] Radiology Study observation (narrative) [facility] [place] US for transplanted kidney l imitedOrdered By: Romana Matias on 08-29-2023 [facility] [place] Work Phone: CBC AND ELECTRONIC DIFFon Basophils (Bld) [#/Vol] K/uL 0.00 - 0.09 K/uL [facility] [place] Basophils/100 WBC (Bld) 0.6 % [facility] [place] Differential cell count method Nom (Bld) Electronic Differential [facility] [place] Eosinophils (Bld) [#/Vol] 0.10 10*3/uL 0.00 - 0.48 K/uL [facility] [place] Eosinophils/100 WBC (Bld) 2.1 % [facility] [place] Erythrocyte distribution width (RBC) [Ratio] 13.4 % 10.9 - 14.3 % [facility] [place] Hematocrit (Bld) [Volume fraction] 37.9 % Low 39.6 - 48.8 % [facility] [place] Hemoglobin (Bld) [Mass/Vol] 12.4 g/dL Low 13.4 - 16.8 g/dL [facility] [place] Immature granulocytes (Bld) [#/Vol] K/uL NINF - 0.07 K/uL [facility] [place] Immature granulocytes/100 WBC (Bld) 0.6 % [facility] [place] Interpretation and review of laboratory results Abnormal [facility] [place] Lymphocytes (Bld) [#/Vol] 1.76 10*3/uL 0.83 - 3.57 K/uL [facility] [place] Lymphocytes/100 WBC (Bld) 37.1 % [facility] [place] MCH (RBC) [Entitic mass] 27.8 pg 26.1 - 33.3 pg [facility] [place] MCHC (RBC) [Mass/Vol] 32.7 g/dL 31.9 - 36.5 g/dL [facility] [place] MCV (RBC) [Entitic vol] 85.0 fL 79.0 - 94.5 fL [facility] [place] Monocytes (Bld) [#/Vol] 0.66 10*3/uL 0.24 - 0.93 K/uL [facility] [place] Monocytes/100 WBC (Bld) 13.9 % [facility] [place] Neutrophils (Bld) [#/Vol] 2.16 10*3/uL 1.57 - 6.19 K/uL [facility] [place] Nucleated RBC/100 WBC (Bld) [Ratio] 0.0 % [facility] [place] Platelet mean volume (Bld) [Entitic vol] 9.3 fL 8.7 - 12.3 fL [facility] [place] Platelets (Bld) [#/Vol] 262 10*3/uL 146 - 337 K/uL [facility] [place] RBC (Bld) [#/Vol] 4.46 10*6/uL [facility] Segmented neutrophils/100 WBC (Bld) 45.7 % [facility] [place] WBC (Bld) [#/Vol] 4.74 10*3/uL 3.73 - 10. 10 K/uL [facility] CHEM 6 (LYTES, BUN CREA)on 0 08-28-2023 Anion gap [Moles/Vol] 13 mmol/L 7 - 17 mmol/L [facility] [place] Chloride [Moles/Vol] 103 mmol/L 98 - 10 8 mmol/L [facility] [place] CO2 [Moles/Vol] 22 mmol/L 21 - 31 mmol/L [facility] [place] Creatinine [Mass/Vol] 1.62 mg/dL High 0.70 - 1.30 mg/dL [facility] [place] eGFR, CKD-EPI, Male 52 Low - PINF [facility] Interpretation and review of laboratory results Abnormal [facility] Potassium [Moles/Vol] 4.3 mmol/L 3.5 - 5.0 mmol/L [facility] Sodium [Moles/Vol] 134 mmol/L Low 135 - 145 mmol/L [facility] Urea nitrogen [Mass/Vol] 22 mg/dL 7 - 25 mg/dL [facility] Urea nitrogen/Creatinine [Mass ratio] 14 mg/mg [facility] Portable XR Chest Viewson Radiology Study observation (narrative) [facility] Respiratory virus DNA+RNA NA A+probe Nom (Unsp spec)Ordered By: Dayami Harris on 08-28-2023 Adenovirus DNA ESTELITA+probe Nom (Unsp spec) Not detected Not [facility] B. parapertussis DNA ESTELITA+probe Ql (Unsp spec) Not detected Not Detected [facility] B. pertussis DNA ESTELITA+probe Ql (Unsp spec) Not detected Not Detected [facility] C. pneumoniae DNA ESTELITA+probe Ql (Unsp spec) Not detected Not Detected [facility] FLUAV RNA ESTELITA+probe Ql (Unsp spec) Not detected Not Detected [facility] FLUBV RNA ESTELITA+probe Ql (Unsp spec) Not detected Not Detected [facility] HCoV 229E RNA ESTELITA+non-probe Ql (Nph) Not detected Not [facility]ed [facility] HCoV HKU1 RNA ESTELITA+non-probe Ql (Nph) Not detected Not Detected [facility] HCoV NL63 RNA ESTELITA+non-probe Ql (Nph) Not detected Not Detected [facility] HCoV OC43 RNA ESTELITA+non-probe Ql (Nph) Not detected Not Detected [facility] hMPV A RNA ESTELITA+probe Ql (Unsp spec) Not detected Not Detected [facility] Interpretation and review of laboratory results Normal [facility] M. pneumoniae DNA ESTELITA+probe Ql (Unsp spec) Not detected Not Detected [facility] Parainfluenza virus 1 RNA ESTELITA+probe Ql (Unsp spec) Not detected Not Detected [facility] Parainfluenza virus 2 RNA ESTELITA+probe Ql (Unsp spec) Not detected Not Detected [facility] Parainfluenza virus 3 RNA ESTELITA+probe Ql (Unsp spec) Not detected Not Detected [facility] [place] Parainfluenza virus 4 RNA ESTELITA+probe Ql (Unsp spec) Not detected Not Detected [facility] Rhinovirus+Enterovirus RNA ESTELITA+probe Ql (Unsp spec) Not detected Not Detected [facility] RSV RNA ESTELITA+probe Ql (Unsp spec) Not detected Not Detected [facility] [place] SARS-CoV-2 (COVID-19) RNA ESTELITA+probe Ql (Unsp spec) Not detected NOT DETECTED [facility] ALBUMINon 04-28-2023 Albumin [Mass/Vol] 4.0 g/dL Normal 3.4-5.0 [facility] Comment on above: Performed By: #### C MP #### [facility] [address] [place] [address] Dr. Dwight Waters ALKALINE PHOSPHAon ALP [Catalytic activity/Vol] 106 U/L Normal 46-116 [facility] Comment on above: Performed By: #### F [id number] #### [facility] [address] [place] [address] Dr. Dwight Waters BILIRUBIN CONJUGATED (DIRECT )on 04-28-2023 BILI, CONJUGATED 0.3 mg/dL Critically high 0.0-0.2 [facility] Comment on above: Performed By: #### C MP #### [facility] [address] [place] [address] Dr. Dwight Waters BILIRUBIN TOTALon 04-28-2023 Bilirubin [Mass/Vol] 1.4 mg/dL Critically high 0.2-1.0 [facility] Comment on above: Performed By: #### C MP #### [facility] [address] [place] [address] Dr. Dwight Waters BUNon 04-28-2023 Urea nitrogen [Mass/Vol] 12.0 mg/dL Normal 7.0-18.0 [facility] Comment on above: Performed By: #### U RTPCR #### [facility] [address] [place] [address] Dr. Dwight Waters CALCIUMon 04-28-2023 Calcium [Mass/Vol] 9.3 mg/dL Normal 8.5-10.1 [facility] Comment on above: Performed By: #### U RTPCR #### [facility] [address] [place] [address] Dr. Dwight Waters CBC AUTO DIFFon 04-28-2023 BASO # 0.1 103/ul Normal 0.0-0.1 [facility] Comment on above: Performed By: #### C BC #### [facility] [address] [place] [address] Dr. Dwight Waters Basophils/100 WBC (Bld) 0.9 % Normal 0.2-2.0 [facility] Comment on above: Performed By: #### C BC #### [facility] [address] [place] [address] Dr. Dwight Waters EO # 0.2 103/ul Normal 0.0-0.7 [facility] Comment on above: Performed By: #### C BC #### [facility] [address] [place] [address] Dr. Dwight Waters Eosinophils/100 WBC (Bld) 3.8 % Normal 0.9-7.0 [facility] Comment on above: Performed By: #### C BC #### [facility] [address] [place] [address] Dr. Dwight Waters Erythrocyte distribution width (RBC) [Ratio] 12.5 % Normal 11.0-15.0 [facility] Comment on above: Performed By: #### C BC #### [facility] [address] [place] [address] Dr. Dwight Waters Hematocrit (Bld) [Volume fraction] 49.8 % Normal 42.0-54.0 [facility] Comment on above: Performed By: #### C BC #### [facility] [address] [place] [address] Dr. Dwight Waters Hemoglobin (Bld) [Mass/Vol] 16.4 g/dL Normal 14.0-18.0 [facility] Comment on above: Performed By: #### C BC #### [facility] [address] [place] [address] Dr. Dwight Waters IG # 0.01 10e3/ul Normal 0.00-0.03 [facility] Comment on above: Performed By: #### C BC #### [facility] [address] [place] [address] Dr. Dwight Waters IG % 0.2 % Normal 0.0-0.5 [facility] Comment on above: Performed By: #### C BC #### [facility] [address] [place] [address] Dr. Dwight Waters LYMPH # 2.1 103/ul Normal 1.2-3.8 [facility] Comment on above: Performed By: #### C BC #### [facility] [address] [place] [address] Dr. Dwight Waters Lymphocytes/100 WBC (Bld) 39.1 % Normal 20.5-60.0 [facility] Comment on above: Performed By: #### C BC #### [facility] [address] [place] [address] Dr. Dwight Waters MANUAL DIFF REQ NO Normal [facility] Comment on above: Performed By: #### C BC #### [facility] [address] [place] [address] Dr. Dwight Waters MCH (RBC) [Entitic mass] 28.6 pg Normal 25.9-34.0 [facility] Comment on above: Performed By: #### C BC #### [facility] [address] [place] [address] Dr. Dwight Waters MCHC (RBC) [Mass/Vol] 32.9 g/dL Normal 29.9-35.2 [facility] Comment on above: Performed By: #### C BC #### [facility] [address] [place] [address] Dr. Dwight Waters MCV (RBC) [Entitic vol] 86.9 fL Normal 80.0-94.0 [facility] Comment on above: Performed By: #### C BC #### [facility] [address] [place] [address] Dr. Dwight Waters MONO # 0.6 103/ul Normal 0.3-0.8 [facility] Comment on above: Performed By: #### C BC #### [facility] [address] [place] [address] Dr. Dwight Waters Monocytes/100 WBC (Bld) 10.6 % Normal 1.7-12.0 [facility] Comment on above: Performed By: #### C BC #### [facility] [address] [place] [address] Dr. Dwight Waters NEUT # 2.5 103/ul Normal 1.4-6.5 [facility] Comment on above: Performed By: #### C BC #### [facility] [address] [place] [address] Dr. Dwight Waters Neutrophils/100 WBC (Bld) 45.4 % Normal 43.0-75.0 [facility] Comment on above: Performed By: #### C BC #### [facility] [address] [place] [address] Dr. Dwight Waters Platelet mean volume (Bld) [Entitic vol] 9.3 fL Critically low 9.5-13.5 [facility] Comment on above: Performed By: #### C BC #### [facility] [address] [place] [address] Dr. Dwight Waters PLT 248 103/ul Normal 150-450 [facility] Comment on above: Performed By: #### C BC #### [facility] [address] [place] [address] Dr. Dwight Waters RBC 5.73 106/ul Normal 4.70-6.10 [facility] Comment on above: Performed By: #### C BC #### [facility] [address] [place] [address] Dr. Dwight Waters WBC 5.5 103/ul Normal 4.0-11.0 [facility] Comment on above: Performed By: #### C BC #### [facility] [address] [address] [address] Dwight Waters CHLORIDEon 04-28-2023 Chloride [Moles/Vol] 107 mmol/L Normal 98-107 [facility] Comment on above: Performed By: #### U RTPCR #### [facility] [address] [place] [address] Dr. Dwight Waters CO2on 04-28-2023 CO2 [Moles/Vol] 28.9 mmol/L Normal 21.0-32.0 [facility] Comment on above: Performed By: #### U RTPCR #### [facility] [address] [place] [address] Dr. Dwight Waters CREATININEon 04-28-2023 Creatinine [Mass/Vol] 1.17 mg/dL Normal 0.70-1.30 [facility] Comment on above: Performed By: #### U RTPCR #### [facility] [address] [place] [address] Dr. Dwight Waters EGFR-AF RUSSIAN >60 Normal >=60 [facility] Comment on above: Performed By: #### U RTPCR #### [facility] [address] [place] [address] Dr. Dwight Waters EGFR-NON AF RUSSIAN >60 Normal >=60 [facility] Comment on above: Performed By: #### U RTPCR #### [facility] [address] [place] [address] Dr. Dwight Waters GGTon 04-28-2023 Gamma glutamyl transferase [Catalytic activity/Vol] 27 U/L Normal 15-85 [facility] Comment on above: Performed By: #### U RTPCR #### [facility] [address] [place] [address] Dr. Dwight Waters GLUCOSE BLOODon 04-28-2023 Glucose [Mass/Vol] 110 mg/dL Critically high 74-106 [facility] Comment on above: Performed By: #### U RTPCR #### [facility] [address] [place] [address] Dr. Dwight Waters MAGNESIUMon 04-28-2023 Magnesium [Mass/Vol] 1.7 mg/dL Critically low 1.8-2.4 [facility] Comment on above: Performed By: #### U RTPCR #### [facility] [address] [place] [address] Dr. Dwight Waters NAon 04-28-2023 Sodium [Moles/Vol] 144 mmol/L Normal 136-145 [facility] Comment on above: Performed By: #### U RTPCR #### [facility] [address] [place] [address] Dr. Dwight Waters PHOSPHORUSon 04-28-2023 Phosphate [Mass/Vol] 3.2 mg/dL Normal 2.6-4.7 [facility] Comment on above: Performed By: #### U RTPCR #### [facility] [address] [place] [address] Dr. Dwight Waters POTASSIUMon 04-28-2023 Potassium [Moles/Vol] 4.0 mmol/L Normal 3.5-5.1 [facility] Comment on above: Performed By: #### U RTPCR #### [facility] [address] [place] [address] Dr. Dwight Waters SGOToamanda 04-28-2023 AST [Catalytic activity/Vol] 25 U/L Normal 15-37 [facility] Comment on above: Performed By: #### C MP #### [facility] [address] [place] [address] Dr. Dwight Waters SGPTon 04-28-2023 ALT [Catalytic activity/Vol] 40 U/L Normal 16-63 [facility] Comment on above: Performed By: #### C MP #### [facility] [address] [place] [address] Dr. Dwight Waters URINE T PROTEIN CREAT RATIOo n 04-28-2023 Protein (U) [Mass/Vol] 10.1 mg/dL Normal <=12.0 [facility] Comment on above: Performed By: #### U RTPCR #### [facility] [address] [place] [address] Dr. Dwight Waters UR PROT CREAT RAT 0.14 Normal [facility] Comment on above: Performed By: #### U RTPCR #### [facility] [address] [place] [address] Dr. Dwight Waters URINE CREAT 74.40 mg/dL Normal 20.00-300.[address] [facility] Comment on above: Performed By: #### U RTPCR #### [facility] [address] [place] [address] Dr. Dwight Waters BK VIRUS PCR QUANTon 023 BKV DNA QUANT PCR PLASMA Negative Normal Negative [facility] Comment on above: Result Comment: No B K DNA detected. . The linear range of the assay is 22 - 100,000,000 IU/mL. Performed By: #### B KVIRUS #### [facility] [address] [place] [address] Dr. Dwight Waters Log10 BKV DNA Plasma Normal [facility] Comment on above: Performed By: #### B KVIRUS #### [facility] [address] [place] [address] Dr. Dwight Waters FK506 (TACROLIMUS) WHOLE BLO ODon 03-04-2023 Tacrolimus (FK506), Blood 5.9 ng/mL Normal 2.0-20.0 [facility] Comment on above: Result Comment: Trou gh (immediately following transplant) 15.0 . Trough (steady state, 2 weeks or more after transplant): 3.0 - 8.0 . Performed by LC-MS/MS technology. Performed By: #### C MP #### [facility] [address] [place] [address] Dr. Dwight Waters ALBUMINon 03-02-2023 Albumin [Mass/Vol] 3.9 g/dL Normal 3.4-5.0 [facility] Comment on above: Performed By: #### U RTPCR #### [facility] [address] [place] [address] Dr. Dwight Waters ALKALINE PHOSPHAon ALP [Catalytic activity/Vol] 105 U/L Normal 46-116 [facility] Comment on above: Performed By: #### U RTPCR #### [facility] [address] [place] [address] Dr. Dwight Waters BILIRUBIN CONJUGATED (DIRECT )on 03-02-2023 BILI, CONJUGATED 0.2 mg/dL Normal 0.0-0.2 [facility] Comment on above: Performed By: #### U RTPCR #### [facility] [address] [place] [address] Dr. Dwight Waters BILIRUBIN TOTALon 03-02-2023 Bilirubin [Mass/Vol] 0.9 mg/dL Normal 0.2-1.0 [facility] Comment on above: Performed By: #### U RTPCR #### [facility] [address] [place] [address] Dr. Dwight Waters CBC AUTO DIFFon 03-02-2023 BASO # 0.1 103/ul Normal 0.0-0.1 [facility] Comment on above: Performed By: #### C BC #### [facility] [address] [place] [address] Dr. Dwight Waters Basophils/100 WBC (Bld) 0.9 % Normal 0.2-2.0 [facility] Comment on above: Performed By: #### C BC #### [facility] [address] [place] [address] Dr. Dwight Waters EO # 0.2 103/ul Normal 0.0-0.7 [facility] Comment on above: Performed By: #### C BC #### [facility] [address] [place] [address] Dr. Dwight Waters Eosinophils/100 WBC (Bld) 3.5 % Normal 0.9-7.0 [facility] Comment on above: Performed By: #### C BC #### [facility] [address] [place] [address] Dr. Dwight Waters Erythrocyte distribution width (RBC) [Ratio] 12.7 % Normal 11.0-15.0 [facility] Comment on above: Performed By: #### C BC #### [facility] [address] [place] [address] Dr. Dwight Waters Hematocrit (Bld) [Volume fraction] 48.2 % Normal 42.0-54.0 [facility] Comment on above: Performed By: #### C BC #### [facility] [address] [place] [address] Dr. Dwight Waters Hemoglobin (Bld) [Mass/Vol] 15.9 g/dL Normal 14.0-18.0 [facility] Comment on above: Performed By: #### C BC #### [facility] [address] [place] [address] Dr. Dwight Waters IG # 0.01 10e3/ul Normal 0.00-0.03 [facility] Comment on above: Performed By: #### C BC #### [facility] [address] [place] [address] Dr. Dwight Waters IG % 0.2 % Normal 0.0-0.5 [facility] Comment on above: Performed By: #### C BC #### [facility] [address] [place] [address] Dr. Dwight Waters LYMPH # 2.1 103/ul Normal 1.2-3.8 [facility] Comment on above: Performed By: #### C BC #### [facility] [address] [place] [address] Dr. Dwight Waters Lymphocytes/100 WBC (Bld) 37.4 % Normal 20.5-60.0 [facility] Comment on above: Performed By: #### C BC #### [facility] [address] [place] [address] Dr. Dwight Waters MANUAL DIFF REQ NO Normal [facility] Comment on above: Performed By: #### C BC #### [facility] [address] [place] [address] Dr. Dwight Waters MCH (RBC) [Entitic mass] 28.3 pg Normal 25.9-34.0 [facility] Comment on above: Performed By: #### C BC #### [facility] [address] [place] [address] Dr. Dwight Waters MCHC (RBC) [Mass/Vol] 33.0 g/dL Normal 29.9-35.2 [facility] Comment on above: Performed By: #### C BC #### [facility] [address] [address] [address] Dwight Waters MCV (RBC) [Entitic vol] 85.8 fL Normal 80.0-94.0 [facility] Comment on above: Performed By: #### C BC #### [facility] [address] [address] [address] Dwight Waters MONO # 0.6 103/ul Normal 0.3-0.8 [facility] Comment on above: Performed By: #### C BC #### [facility] [address] [address] [address] Dwight Waters Monocytes/100 WBC (Bld) 10.2 % Normal 1.7-12.0 [facility] Comment on above: Performed By: #### C BC #### [facility] [address] [place] [address] Dr. Dwight Waters NEUT # 2.7 103/ul Normal 1.4-6.5 [facility] Comment on above: Performed By: #### C BC #### [facility] [address] [place] [address] Dr. Dwight Waters Neutrophils/100 WBC (Bld) 47.8 % Normal 43.0-75.0 [facility] Comment on above: Performed By: #### C BC #### [facility] [address] [place] [address] Dr. Dwight Waters Platelet mean volume (Bld) [Entitic vol] 9.3 fL Critically low 9.5-13.5 [facility] Comment on above: Performed By: #### C BC #### [facility] [address] [place] [address] Dr. Dwight Waters PLT 241 103/ul Normal 150-450 [facility] Comment on above: Performed By: #### C BC #### [facility] [address] [place] [address] Dr. Dwight Waters RBC 5.62 106/ul Normal 4.70-6.10 [facility] Comment on above: Performed By: #### C BC #### [facility] [address] [place] [address] Dr. Dwight Waters WBC 5.7 103/ul Normal 4.0-11.0 [facility] Comment on above: Performed By: #### C BC #### [facility] [address] [place] [address] Dr. Dwight Waters GGTon 03-02-2023 Gamma glutamyl transferase [Catalytic activity/Vol] 25 U/L Normal 15-85 [facility] Comment on above: Performed By: #### U RTPCR #### [facility] [address] [place] [address] Dr. Dwight Waters MAGNESIUMon 03-02-2023 Magnesium [Mass/Vol] 1.6 mg/dL Critically low 1.8-2.4 [facility] Comment on above: Performed By: #### U RTPCR #### [facility] [address] [place] [address] Dr. Dwight Waters PHOSPHORUSon 03-02-2023 Phosphate [Mass/Vol] 3.6 mg/dL Normal 2.6-4.7 [facility] Comment on above: Performed By: #### U RTPCR #### [facility] [address] [place] [address] Dr. Dwight Waters PROF CHEM 8 (BAS METB)on Anion gap [Moles/Vol] 9.4 mmol/L Normal [facility] Comment on above: Performed By: #### U RTPCR #### [facility] [address] [place] [address] Dr. Dwight Waters Calcium [Mass/Vol] 9.3 mg/dL Normal 8.5-10.1 [facility] Comment on above: Performed By: #### U RTPCR #### [facility] [address] [place] [address] Dr. Dwight Waters Chloride [Moles/Vol] 108 mmol/L Critically high 98-107 [facility] Comment on above: Performed By: #### U RTPCR #### [facility] [address] [place] [address] Dr. Dwight Waters CO2 [Moles/Vol] 27.2 mmol/L Normal 21.0-32.0 [facility] Comment on above: Performed By: #### U RTPCR #### [facility] [address] [address] [address] Dwight Waters Creatinine [Mass/Vol] 1.12 mg/dL Normal 0.70-1.30 [facility] Comment on above: Performed By: #### U RTPCR #### [facility] [address] [address] [address] Dwight Waters EGFR-AF RUSSIAN >60 Normal >=60 [facility] Comment on above: Performed By: #### U RTPCR #### [facility] [address] [address] [address] Dwight Waters EGFR-NON AF RUSSIAN >60 Normal >=60 [facility] Comment on above: Performed By: #### U RTPCR #### [facility] [address] [place] [address] Dr. Dwight Waters Glucose [Mass/Vol] 113 mg/dL Critically high 74-106 [facility] Comment on above: Performed By: #### U RTPCR #### [facility] [address] [address] [address] Dwight Waters Potassium [Moles/Vol] 3.6 mmol/L Normal 3.5-5.1 [facility] Comment on above: Performed By: #### U RTPCR #### [facility] [address] [place] [address] Dr. Dwight Waters Sodium [Moles/Vol] 141 mmol/L Normal 136-145 [facility] Comment on above: Performed By: #### U RTPCR #### [facility] [address] [address] [address] Dwight Waters Urea nitrogen [Mass/Vol] 14.0 mg/dL Normal 7.0-18.0 [facility] Comment on above: Performed By: #### U RTPCR #### [facility] [address] [address] [address] Dwight Waters Urea nitrogen/Creatinine [Mass ratio] 12.5 mg/mg Normal [facility] Comment on above: Performed By: #### U RTPCR #### [facility] [address] [place] [address] Dr. Dwight Waters SGOTon 03-02-2023 AST [Catalytic activity/Vol] 20 U/L Normal 15-37 [facility] Comment on above: Performed By: #### U RTPCR #### [facility] [address] [place] [address] Dr. Dwight Waters SGPTon 03-02-2023 ALT [Catalytic activity/Vol] 30 U/L Normal 16-63 [facility] Comment on above: Performed By: #### U RTPCR #### [facility] [address] [place] [address] Dr. Dwight Waters URINE T PROTEIN CREAT RATIOo n 03-02-2023 Protein (U) [Mass/Vol] 10.3 mg/dL Normal <=12.0 Th [facility] Comment on above: Performed By: #### U RTPCR #### [facility] [address] [place] [address] Dr. Dwight Waters UR PROT CREAT RAT 0.15 Normal [facility] Comment on above: Performed By: #### U RTPCR #### [facility] [address] [place] [address] Dr. Dwight Waters URINE CREAT 68.96 mg/dL Normal 20.00-300.[address] [facility] Comment on above: Performed By: #### U RTPCR #### [facility] [address] [place] [address] Dr. Dwight Waters BK VIRUS PCR QUANTon 023 BKV DNA QUANT PCR PLASMA Negative Normal Negative [facility] Comment on above: Result Comment: No B K DNA detected. . The linear range of the assay is 22 - 100,000,000 IU/mL. Performed By: #### C MP #### [facility] [address] [place] [address] Dr. Dwight Waters Log10 BKV DNA Plasma Normal [facility] Comment on above: Performed By: #### C MP #### [facility] [address] [place] [address] Dr. Dwight Waters FK506 (TACROLIMUS) WHOLE BLO ODon 12-31-2022 Tacrolimus (FK506), Blood 5.6 ng/mL Normal 2.0-20.0 [facility] Comment on above: Result Comment: Trou gh (immediately following transplant) 15.0 . Trough (steady state, 2 weeks or more after transplant): 3.0 - 8.0 . Performed by LC-MS/MS technology. Performed By: #### C MP #### [facility] [address] [place] [address] Dr. Dwight Waters ALKALINE PHOSPHAon ALP [Catalytic activity/Vol] 96 U/L Normal 46-116 [facility] Comment on above: Performed By: #### C BC #### [facility] [address] [place] [address] Dr. Dwight Waters BILIRUBIN CONJUGATED (DIRECT )on 12-29-2022 BILI, CONJUGATED 0.3 mg/dL Critically high 0.0-0.2 [facility] Comment on above: Performed By: #### C BC #### [facility] [address] [place] [address] Dr. Dwight Waters BILIRUBIN TOTALon 12-29-2022 Bilirubin [Mass/Vol] 1.1 mg/dL Critically high 0.2-1.0 [facility] Comment on above: Performed By: #### C BC #### [facility] [address] [place] [address] Dr. Dwight Waters CBC AUTO DIFFon 12-29-2022 BASO # 0.1 103/ul Normal 0.0-0.1 [facility] Comment on above: Performed By: #### C MP #### [facility] [address] [place] [address] Dr. Dwight Waters Basophils/100 WBC (Bld) 0.8 % Normal 0.2-2.0 [facility] Comment on above: Performed By: #### C MP #### [facility] [address] [place] [address] Dr. Dwight Waters EO # 0.2 103/ul Normal 0.0-0.7 [facility] Comment on above: Performed By: #### C MP #### [facility] [address] [place] [address] Dr. Dwight Waters Eosinophils/100 WBC (Bld) 3.0 % Normal 0.9-7.0 [facility] Comment on above: Performed By: #### C MP #### [facility] [address] [place] [address] Dr. Dwight Waters Erythrocyte distribution width (RBC) [Ratio] 12.9 % Normal 11.0-15.0 [facility] Comment on above: Performed By: #### C MP #### [facility] [address] [place] [address] Dr. Dwight Waters Hematocrit (Bld) [Volume fraction] 46.9 % Normal 42.0-54.0 [facility] Comment on above: Performed By: #### C MP #### [facility] [address] [place] [address] Dr. Dwight Waters Hemoglobin (Bld) [Mass/Vol] 16.1 g/dL Normal 14.0-18.0 [facility] Comment on above: Performed By: #### C MP #### [facility] [address] [place] [address] Dr. Dwight Waters IG # 0.01 10e3/ul Normal 0.00-0.03 [facility] Comment on above: Performed By: #### C MP #### [facility] [address] [place] [address] Dr. Dwight Waters IG % 0.2 % Normal 0.0-0.5 [facility] Comment on above: Performed By: #### C MP #### [facility] [address] [place] [address] Dr. Dwight Waters LYMPH # 1.8 103/ul Normal 1.2-3.8 [facility] Comment on above: Performed By: #### C MP #### [facility] [address] [place] [address] Dr. Dwight Waters Lymphocytes/100 WBC (Bld) 27.9 % Normal 20.5-60.0 [facility] Comment on above: Performed By: #### C MP #### [facility] [address] [place] [address] Dr. Dwight Waters MANUAL DIFF REQ NO Normal [facility] Comment on above: Performed By: #### C MP #### [facility] [address] [place] [address] Dr. Dwight Waters MCH (RBC) [Entitic mass] 28.5 pg Normal 25.9-34.0 [facility] Comment on above: Performed By: #### C MP #### [facility] [address] [place] [address] Dr. Dwight Waters MCHC (RBC) [Mass/Vol] 34.3 g/dL Normal 29.9-35.2 [facility] Comment on above: Performed By: #### C MP #### [facility] [address] [place] [address] Dr. Dwight Waters MCV (RBC) [Entitic vol] 83.2 fL Normal 80.0-94.0 [facility] Comment on above: Performed By: #### C MP #### [facility] [address] [place] [address] Dr. Dwight Waters MONO # 0.5 103/ul Normal 0.3-0.8 [facility] Comment on above: Performed By: #### C MP #### [facility] [address] [place] [address] Dr. Dwight Waters Monocytes/100 WBC (Bld) 8.1 % Normal 1.7-12.0 [facility] Comment on above: Performed By: #### C MP #### [facility] [address] [place] [address] Dr. Dwight Waters NEUT # 3.8 103/ul Normal 1.4-6.5 [facility] Comment on above: Performed By: #### C MP #### [facility] [address] [place] [address] Dr. Dwight Waters Neutrophils/100 WBC (Bld) 60.0 % Normal 43.0-75.0 [facility] Comment on above: Performed By: #### C MP #### [facility] [address] [place], [place] [id number] Dr. Dwight Waters Platelet mean volume (Bld) [Entitic vol] 9.2 fL Critically low 9.5-13.5 [facility] Comment on above: Performed By: #### C MP #### [facility] [address] [place] [address] Dr. Dwight Waters PLT 225 103/ul Normal 150-450 [facility] Comment on above: Performed By: #### C MP #### [facility] [address] [place] [address] Dr. Dwight Waters RBC 5.64 106/ul Normal 4.70-6.10 [facility] Comment on above: Performed By: #### C MP #### [facility] [address] [place] [address] Dr. Dwight Waters WBC 6.3 103/ul Normal 4.0-11.0 [facility] Comment on above: Performed By: #### C MP #### [facility] [address] [place] [address] Dr. Dwight Waters GGTon 12-29-2022 Gamma glutamyl transferase [Catalytic activity/Vol] 24 U/L Normal 15-85 [facility] Comment on above: Performed By: #### C MP #### [facility] [address] [place] [address] Dr. Dwight Waters LIPID PROFILEon 12-29-2022 CHOL-HDL RATIO NORM SEE BELOW Normal [facility] Comment on above: Result Comment: 3.3 - 4.4 LOW RISK 4.4 - 7.1 AVERAGE RISK 7.1 - 11.0 MODERATE RISK >11.0 HIGH RISK Performed By: #### U RTPCR #### [facility] [address] [place] [address] Dr. Dwight Waters Cholesterol [Mass/Vol] 87 mg/dL Normal <=200 [facility] Comment on above: Performed By: #### U RTPCR #### [facility] [address] [place] [address] Dr. Dwight Waters Cholesterol in HDL [Mass/Vol] 44 mg/dL Normal 40-60 [facility] Comment on above: Performed By: #### U RTPCR #### [facility] [address] [address] [address] Dwight Waters Cholesterol in LDL [Mass/Vol] 33.0 mg/dL Normal [facility] Comment on above: Performed By: #### U RTPCR #### [facility] [address] [address] [address] Dwight Waters Cholesterol.total/Chol esterol in HDL [Mass ratio] 2.0 {ratio} Normal [facility] Comment on above: Performed By: #### U RTPCR #### [facility] [address] [address] [address] Dwight Waters HDL NORMAL > or = 60 mg/dl - LO W CARDIOVASCULAR RISK <40 mg/dl - HIGH CARDIOVASCULAR RISK Normal [facility] Comment on above: Performed By: #### U RTPCR #### [facility] [address] [place] [address] Dr. Dwight Waters LDL CALC NORMAL SEE BELOW Normal [facility] Comment on above: Result Comment: <100 mg/dl OPTIMAL 100 - 129 mg/dl NEAR OR ABOVE OPTIMAL 130 - 159 mg/dl BORDERLINE HIGH 160 - 189 mg/dl HIGH >190 mg/dl VERY HIGH Performed By: #### U RTPCR #### [facility] [address] [place] [address] Dr. Dwight Waters Triglyceride [Mass/Vol] 50 mg/dL Normal <=150 [facility] Comment on above: Performed By: #### U RTPCR #### [facility] [address] [place] [address] Dr. Dwight Waters VLDL CALC 10.0 mg/dL Normal [facility] Comment on above: Performed By: #### U RTPCR #### [facility] [address] [place] [address] Dr. Dwight Waters MAGNESIUMon 12-29-2022 Magnesium [Mass/Vol] 1.6 mg/dL Critically low 1.8-2.4 [facility] Comment on above: Performed By: #### C BC #### [facility] [address] [place] [address] Dr. Dwight Waters RENAL FUNCTION PANELon 12-29 Albumin [Mass/Vol] 3.9 g/dL Normal 3.4-5.0 [facility] Comment on above: Performed By: #### C BC #### [facility] [address] [address] [address] Dwight Waters Calcium [Mass/Vol] 9.2 mg/dL Normal 8.5-10.1 [facility] Comment on above: Performed By: #### C BC #### [facility] [address] [address] [address] Dwight Waters Chloride [Moles/Vol] 109 mmol/L Critically high 98-107 [facility] Comment on above: Performed By: #### C BC #### [facility] [address] [place] [address] Dr. Dwight Waters CO2 [Moles/Vol] 27.0 mmol/L Normal 21.0-32.0 [facility] Comment on above: Performed By: #### C BC #### [facility] [address] [place] [address] Dr. Dwight Waters Creatinine [Mass/Vol] 1.02 mg/dL Normal 0.70-1.30 [facility] Comment on above: Performed By: #### C BC #### [facility] [address] [place] [address] Dr. Dwight Waters EGFR-AF RUSSIAN >60 Normal >=60 [facility] Comment on above: Performed By: #### C BC #### [facility] [address] [place] [address] Dr. Dwight Waters EGFR-NON AF RUSSIAN >60 Normal >=60 [facility] Comment on above: Performed By: #### C BC #### [facility] [address] [place] [address] Dr. Dwight Waters Glucose [Mass/Vol] 117 mg/dL Critically high 74-106 [facility] Comment on above: Performed By: #### C BC #### [facility] [address] [place] [address] Dr. Dwight Waters Phosphate [Mass/Vol] 3.2 mg/dL Normal 2.6-4.7 [facility] Comment on above: Performed By: #### C BC #### [facility] [address] [place] [address] Dr. Dwight Waters Potassium [Moles/Vol] 4.1 mmol/L Normal 3.5-5.1 [facility] Comment on above: Performed By: #### C BC #### [facility] [address] [place] [address] Dr. Dwight Waters Sodium [Moles/Vol] 144 mmol/L Normal 136-145 [facility] Comment on above: Performed By: #### C BC #### [facility] [address] [place] [address] Dr. Dwight Waters Urea nitrogen [Mass/Vol] 13.0 mg/dL Normal 7.0-18.0 [facility] Comment on above: Performed By: #### C BC #### [facility] [address] [place] [address] Dr. Dwight Waters SGOTon 12-29-2022 AST [Catalytic activity/Vol] 21 U/L Normal 15-37 [facility] Comment on above: Performed By: #### C BC #### [facility] [address] [place] [address] Dr. Dwight Waters SGPTon 12-29-2022 ALT [Catalytic activity/Vol] 32 U/L Normal 16-63 [facility] Comment on above: Performed By: #### C BC #### [facility] [address] [place] [address] Dr. Dwight Waters URINE T PROTEIN CREAT RATIOo n 12-29-2022 Protein (U) [Mass/Vol] 14.3 mg/dL Critically high <=12.0 [facility] Comment on above: Performed By: #### U RTPCR #### [facility] [address] [place] [address] Dr. Dwight Waters UR PROT CREAT RAT 0.17 Normal [facility] Comment on above: Performed By: #### U RTPCR #### [facility] [address] [place] [address] Dr. Dwight Waters URINE CREAT 86.58 mg/dL Normal 20.00-300.00 [facility] Comment on above: Performed By: #### U RTPCR #### [facility] [address] [place] [address] Dr. Dwight Waters FK506 (TACROLIMUS) WHOLE BLO ODon 11-06-2022 Tacrolimus (FK506), Blood 4.9 ng/mL Normal 2.0-20.0 [facility] Comment on above: Result Comment: Trou gh (immediately following transplant) 15.0 . Trough (steady state, 2 weeks or more after transplant): 3.0 - 8.0 . Performed by LC-MS/MS technology. Performed By: #### U RTPCR #### [facility] [address] [place] [address] Dr. Dwight Waters ALKALINE PHOSPHAon ALP [Catalytic activity/Vol] 86 U/L Normal 46-116 [facility] Comment on above: Performed By: #### U RTPCR #### [facility] [address] [place] [address] Dr. Dwight Waters BILIRUBIN CONJUGATED (DIRECT )on 11-04-2022 BILI, CONJUGATED 0.2 mg/dL Normal 0.0-0.2 [facility] Comment on above: Performed By: #### U RTPCR #### [facility] [address] [place] [address] Dr. Dwight Waters BILIRUBIN TOTALon 11-04-2022 Bilirubin [Mass/Vol] 0.8 mg/dL Normal 0.2-1.0 [facility] Comment on above: Performed By: #### U RTPCR #### [facility] [address] [place] [address] Dr. Dwight Waters CBC AUTO DIFFon 11-04-2022 BASO # 0.1 103/ul Normal 0.0-0.1 [facility] Comment on above: Performed By: #### U RTPCR #### [facility] [address] [place] [address] Dr. Dwight Waters Basophils/100 WBC (Bld) 0.9 % Normal 0.2-2.0 [facility] Comment on above: Performed By: #### U RTPCR #### [facility] [address] [place] [address] Dr. Dwight Waters EO # 0.2 103/ul Normal 0.0-0.7 [facility] Comment on above: Performed By: #### U RTPCR #### [facility] [address] [place] [address] Dr. Dwight Waters Eosinophils/100 WBC (Bld) 3.7 % Normal 0.9-7.0 [facility] Comment on above: Performed By: #### U RTPCR #### [facility] [address] [place] [address] Dr. Dwight Waters Erythrocyte distribution width (RBC) [Ratio] 12.9 % Normal 11.0-15.0 [facility] Comment on above: Performed By: #### U RTPCR #### [facility] [address] [place] [address] Dr. Dwight Waters Hematocrit (Bld) [Volume fraction] 48.3 % Normal 42.0-54.0 [facility] Comment on above: Performed By: #### U RTPCR #### [facility] [address] [place] [address] Dr. Dwight Waters Hemoglobin (Bld) [Mass/Vol] 15.6 g/dL Normal 14.0-18.0 [facility] Comment on above: Performed By: #### U RTPCR #### [facility] [address] [place] [address] Dr. Dwight Waters IG # 0.01 10e3/ul Normal 0.00-0.03 [facility] Comment on above: Performed By: #### U RTPCR #### [facility] [address] [place] [address] Dr. Dwight Waters IG % 0.2 % Normal 0.0-0.5 [facility] Comment on above: Performed By: #### U RTPCR #### [facility] [address] [place] [address] Dr. Dwight Waters LYMPH # 1.9 103/ul Normal 1.2-3.8 [facility] Comment on above: Performed By: #### U RTPCR #### [facility] [address] [address] [address] Dwight Waters Lymphocytes/100 WBC (Bld) 33.0 % Normal 20.5-60.0 [facility] Comment on above: Performed By: #### U RTPCR #### [facility] [address] [address] [address] Dwight Waters MANUAL DIFF REQ NO Normal [facility] Comment on above: Performed By: #### U RTPCR #### [facility] [address] [address] [address] Dwight Waters MCH (RBC) [Entitic mass] 27.6 pg Normal 25.9-34.0 [facility] Comment on above: Performed By: #### U RTPCR #### [facility] [address] [place] [address] Dr. Dwight Waters MCHC (RBC) [Mass/Vol] 32.3 g/dL Normal 29.9-35.2 [facility] Comment on above: Performed By: #### U RTPCR #### [facility] [address] [place] [address] Dr. Dwight Waters MCV (RBC) [Entitic vol] 85.5 fL Normal 80.0-94.0 [facility] Comment on above: Performed By: #### U RTPCR #### [facility] [address] [place] [address] Dr. Dwight Waters MONO # 0.5 103/ul Normal 0.3-0.8 [facility] Comment on above: Performed By: #### U RTPCR #### [facility] [address] [place] [address] Dr. Dwight Waters Monocytes/100 WBC (Bld) 8.8 % Normal 1.7-12.0 [facility] Comment on above: Performed By: #### U RTPCR #### [facility] [address] [place] [address] Dr. Dwight Waters NEUT # 3.1 103/ul Normal 1.4-6.5 [facility] Comment on above: Performed By: #### U RTPCR #### [facility] [address] [address] [address] Dwight Waters Neutrophils/100 WBC (Bld) 53.4 % Normal 43.0-75.0 [facility] Comment on above: Performed By: #### U RTPCR #### [facility] [address] [address] [address] Dwight Waters Platelet mean volume (Bld) [Entitic vol] 9.2 fL Critically low 9.5-13.5 [facility] Comment on above: Performed By: #### U RTPCR #### [facility] [address] [address] [address] Dwight Waters PLT 255 103/ul Normal 150-450 [facility] Comment on above: Performed By: #### U RTPCR #### [facility] [address] [place] [address] Dr. Dwight Waters RBC 5.65 106/ul Normal 4.70-6.10 [facility] Comment on above: Performed By: #### U RTPCR #### [facility] [address] [address] [address] Dwight Waters WBC 5.7 103/ul Normal 4.0-11.0 [facility] Comment on above: Performed By: #### U RTPCR #### [facility] [address] [place] [address] Dr. Dwight Waters GGTon 11-04-2022 Gamma glutamyl transferase [Catalytic activity/Vol] 22 U/L Normal 15-85 [facility] Comment on above: Performed By: #### U RTPCR #### [facility] [address] [place] [address] Dr. Dwight Waters MAGNESIUMon 11-04-2022 Magnesium [Mass/Vol] 1.8 mg/dL Normal 1.8-2.4 [facility] Comment on above: Performed By: #### U RTPCR #### [facility] [address] [place] [address] Dr. Dwight Waters RENAL FUNCTION PANELon 11-04 Albumin [Mass/Vol] 3.8 g/dL Normal 3.4-5.0 [facility] Comment on above: Performed By: #### U RTPCR #### [facility] [address] [place] [address] Dr. Dwight Waters Calcium [Mass/Vol] 9.3 mg/dL Normal 8.5-10.1 [facility] Comment on above: Performed By: #### U RTPCR #### [facility] [address] [address] [address] Dwight Waters Chloride [Moles/Vol] 107 mmol/L Normal 98-107 [facility] Comment on above: Performed By: #### U RTPCR #### [facility] [address] [place] [address] Dr. Dwight Waters CO2 [Moles/Vol] 29.2 mmol/L Normal 21.0-32.0 [facility] Comment on above: Performed By: #### U RTPCR #### [facility] [address] [place] [address] Dr. Dwight Waters Creatinine [Mass/Vol] 1.07 mg/dL Normal 0.70-1.30 [facility] Comment on above: Performed By: #### U RTPCR #### [facility] [address] [place] [address] Dr. Dwight Waters EGFR-AF RUSSIAN >60 Normal >=60 [facility] Comment on above: Performed By: #### U RTPCR #### [facility] [address] [place] [address] Dr. Dwight Waters EGFR-NON AF RUSSIAN >60 Normal >=60 [facility] Comment on above: Performed By: #### U RTPCR #### [facility] [address] [place] [address] Dr. Dwight Waters Glucose [Mass/Vol] 106 mg/dL Normal 74-106 [facility] Comment on above: Performed By: #### U RTPCR #### [facility] [address] [place] [address] Dr. Dwight Waters Phosphate [Mass/Vol] 2.8 mg/dL Normal 2.6-4.7 [facility] Comment on above: Performed By: #### U RTPCR #### [facility] [address] [place] [address] Dr. Dwight Waters Potassium [Moles/Vol] 4.1 mmol/L Normal 3.5-5.1 [facility] Comment on above: Performed By: #### U RTPCR #### [facility] [address] [place] [address] Dr. Dwight Waters Sodium [Moles/Vol] 143 mmol/L Normal 136-145 [facility] Comment on above: Performed By: #### U RTPCR #### [facility] [address] [place] [address] Dr. Dwight Waters Urea nitrogen [Mass/Vol] 12.0 mg/dL Normal 7.0-18.0 [facility] Comment on above: Performed By: #### U RTPCR #### [facility] [address] [place] [address] Dr. Dwight OLVERAOToamanda 11-04-2022 AST [Catalytic activity/Vol] 19 U/L Normal 15-37 [facility] Comment on above: Performed By: #### U RTPCR #### [facility] [address] [place] [address] Dr. Dwight Waters SGPTon 11-04-2022 ALT [Catalytic activity/Vol] 28 U/L Normal 16-63 [facility] Comment on above: Performed By: #### U RTPCR #### [facility] [address] [place] [address] Dr. Dwight Waters URINE T PROTEIN CREAT RATIOo n 11-04-2022 Protein (U) [Mass/Vol] 10.7 mg/dL Normal <=12.0 [facility] Comment on above: Performed By: #### U RTPCR #### [facility] [address] [place] [address] Dr. Dwight Waters UR PROT CREAT RAT 0.13 Normal [facility] Comment on above: Performed By: #### U RTPCR #### [facility] [address] [place] [address] Dr. Dwight Waters URINE CREAT 84.50 mg/dL Normal 20.00-300.[address] [facility] Comment on above: Performed By: #### U RTPCR #### [facility] [address] [place] [address] Dr. Dwight Waters FK506 (TACROLIMUS) WHOLE BLO ODon 09-18-2022 Tacrolimus (FK506), Blood 4.6 ng/mL Normal 2.0-20.0 [facility] Comment on above: Result Comment: Trou gh (immediately following transplant) 15.0 . Trough (steady state, 2 weeks or more after transplant): 3.0 - 8.0 . Performed by LC-MS/MS technology. Performed By: #### U RTPCR #### [facility] [address] [place] [address] Dr. Dwight Waters BK VIRUS PCR QUANTon 022 BKV DNA QUANT PCR PLASMA Negative Normal Negative [facility] Comment on above: Result Comment: No B K DNA detected. . The linear range of the assay is 22 - 100,000,000 IU/mL. Performed By: #### U RTPCR #### [facility] [address] [place] [address] Dr. Dwight Waters Log10 BKV DNA Plasma Normal [facility] Comment on above: Performed By: #### U RTPCR #### [facility] [address] [place] [address] Dr. Dwight Waters ALKALINE PHOSPHAon ALP [Catalytic activity/Vol] 92 U/L Normal 46-116 [facility] Comment on above: Performed By: #### U RTPCR #### [facility] [address] [place] [address] Dr. Dwight Waters BILIRUBIN CONJUGATED (DIRECT )on 09-15-2022 BILI, CONJUGATED 0.3 mg/dL Critically high 0.0-0.2 [facility] Comment on above: Performed By: #### U RTPCR #### [facility] & [facility] [address] [place] [address] Dr. Dwight Waters BILIRUBIN TOTALon 09-15-2022 Bilirubin [Mass/Vol] 1.1 mg/dL Critically high 0.2-1.0 [facility] Comment on above: Performed By: #### U RTPCR #### [facility] [address] [place] [address] Dr. Dwight Waters CBC AUTO DIFFon 09-15-2022 BASO # 0.1 103/ul Normal 0.0-0.1 [facility] Comment on above: Performed By: #### C BC #### [facility] [address] [place] [address] Dr. Dwight Waters Basophils/100 WBC (Bld) 0.8 % Normal 0.2-2.0 [facility] Comment on above: Performed By: #### C BC #### [facility] [address] [place] [address] Dr. Dwight Waters EO # 0.2 103/ul Normal 0.0-0.7 [facility] Comment on above: Performed By: #### C BC #### [facility] [address] [place] [address] Dr. Dwight Waters Eosinophils/100 WBC (Bld) 3.5 % Normal 0.9-7.0 [facility] Comment on above: Performed By: #### C BC #### [facility] [address] [place] [address] Dr. Dwight Waters Erythrocyte distribution width (RBC) [Ratio] 13.0 % Normal 11.0-15.0 [facility] Comment on above: Performed By: #### C BC #### [facility] [address] [place] [address] Dr. Dwight Waters Hematocrit (Bld) [Volume fraction] 50.0 % Normal 42.0-54.0 [facility] Comment on above: Performed By: #### C BC #### [facility] [address] [place] [address] Dr. Dwight Waters Hemoglobin (Bld) [Mass/Vol] 16.0 g/dL Normal 14.0-18.0 [facility] Comment on above: Performed By: #### C BC #### [facility] [address] [place] [address] Dr. Dwight Waters IG # 0.02 10e3/ul Normal 0.00-0.03 [facility] Comment on above: Performed By: #### C BC #### [facility] [address] [place] [address] Dr. Dwight Waters IG % 0.3 % Normal 0.0-0.5 [facility] Comment on above: Performed By: #### C BC #### [facility] [address] [place] [address] Dr. Dwight Waters LYMPH # 1.8 103/ul Normal 1.2-3.8 [facility] Comment on above: Performed By: #### C BC #### [facility] [address] [place] [address] Dr. Dwight Waters Lymphocytes/100 WBC (Bld) 26.5 % Normal 20.5-60.0 [facility] Comment on above: Performed By: #### C BC #### [facility] [address] [place] [address] Dr. Dwight Waters MANUAL DIFF REQ NO Normal [facility] Comment on above: Performed By: #### C BC #### [facility] [address] [place] [address] Dr. Dwight Waters MCH (RBC) [Entitic mass] 28.1 pg Normal 25.9-34.0 [facility] Comment on above: Performed By: #### C BC #### [facility] [address] [place] [address] Dr. Dwight Waters MCHC (RBC) [Mass/Vol] 32.0 g/dL Normal 29.9-35.2 [facility] Comment on above: Performed By: #### C BC #### [facility] [address] [place] [address] Dr. Dwight Waters MCV (RBC) [Entitic vol] 87.9 fL Normal 80.0-94.0 [facility] Comment on above: Performed By: #### C BC #### [facility] [address] [place] [address] Dr. Dwight Waters MONO # 0.5 103/ul Normal 0.3-0.8 [facility] Comment on above: Performed By: #### C BC #### [facility] [address] [address] [address] Dwight Waters Monocytes/100 WBC (Bld) 8.1 % Normal 1.7-12.0 [facility] Comment on above: Performed By: #### C BC #### [facility] [address] [place] [address] Dr. Dwight Waters NEUT # 4.0 103/ul Normal 1.4-6.5 [facility] Comment on above: Performed By: #### C BC #### [facility] [address] [place] [address] Dr. Dwight Waters Neutrophils/100 WBC (Bld) 60.8 % Normal 43.0-75.0 [facility] Comment on above: Performed By: #### C BC #### [facility] [address] [place] [address] Dr. Dwight Waters Platelet mean volume (Bld) [Entitic vol] 9.4 fL Critically low 9.5-13.5 [facility] Comment on above: Performed By: #### C BC #### [facility] [address] [place] [address] Dr. Dwight Waters PLT 265 103/ul Normal 150-450 [facility] Comment on above: Performed By: #### C BC #### [facility] [address] [place] [address] Dr. Dwight Waters RBC 5.69 106/ul Normal 4.70-6.10 [facility] Comment on above: Performed By: #### C BC #### [facility] [address] [place] [address] Dr. Dwight Waters WBC 6.6 103/ul Normal 4.0-11.0 [facility] Comment on above: Performed By: #### C BC #### [facility] [address] [place] [address] Dr. Dwigth Waters GGTon 09-15-2022 Gamma glutamyl transferase [Catalytic activity/Vol] 23 U/L Normal 15-85 [facility] Comment on above: Performed By: #### U RTPCR #### [facility] [address] [address] [address] Dwight Waters MAGNESIUMon 09-15-2022 Magnesium [Mass/Vol] 1.8 mg/dL Normal 1.8-2.4 [facility] Comment on above: Performed By: #### U RTPCR #### [facility] [address] [place] [address] Dr. Dwight Waters RENAL FUNCTION PANELon 09-15 Albumin [Mass/Vol] 4.1 g/dL Normal 3.4-5.0 [facility] Comment on above: Performed By: #### C BC #### [facility] [address] [place] [address] Dr. Dwight Waters Calcium [Mass/Vol] 9.3 mg/dL Normal 8.5-10.1 [facility] Comment on above: Performed By: #### C BC #### [facility] [address] [place] [address] Dr. Dwight Waters Chloride [Moles/Vol] 107 mmol/L Normal 98-107 [facility] Comment on above: Performed By: #### C BC #### [facility] [address] [place] [address] Dr. Dwight Waters CO2 [Moles/Vol] 25.6 mmol/L Normal 21.0-32.0 [facility] Comment on above: Performed By: #### C BC #### [facility] [address] [place] [address] Dr. Dwight Waters Creatinine [Mass/Vol] 1.01 mg/dL Normal 0.70-1.30 [facility] Comment on above: Performed By: #### C BC #### [facility] [address] [place] [address] Dr. Dwight Waters EGFR-AF RUSSIAN >60 Normal >=60 [facility] Comment on above: Performed By: #### C BC #### [facility] [address] [place] [address] Dr. Dwight Waters EGFR-NON AF RUSSIAN >60 Normal >=60 [facility] Comment on above: Performed By: #### C BC #### [facility] [address] [address] [address] Dwight Waters Glucose [Mass/Vol] 119 mg/dL Critically high 74-106 [facility] Comment on above: Performed By: #### C BC #### [facility] [address] [address] [address] Dwight Waters Phosphate [Mass/Vol] 2.8 mg/dL Normal 2.6-4.7 [facility] Comment on above: Performed By: #### C BC #### [facility] [address] [address] [address] Dwight Waters Potassium [Moles/Vol] 4.0 mmol/L Normal 3.5-5.1 [facility] Comment on above: Performed By: #### C BC #### [facility] [address] [address] [address] Dwight Waters Sodium [Moles/Vol] 141 mmol/L Normal 136-145 [facility] Comment on above: Performed By: #### C BC #### [facility] [address] [address] [address] Dwight Waters Urea nitrogen [Mass/Vol] 15.0 mg/dL Normal 7.0-18.0 [facility] Comment on above: Performed By: #### C BC #### [facility] [address] [address] [address] Dwight Waters SGLashondan 09-15-2022 AST [Catalytic activity/Vol] 18 U/L Normal 15-37 [facility] Comment on above: Performed By: #### U RTPCR #### [facility] [address] [address] [address] Dwight OLVERAPTon 09-15-2022 ALT [Catalytic activity/Vol] 32 U/L Normal 16-63 [facility] Comment on above: Performed By: #### C BC #### [facility] [address] [address] [address] Dwight Waters URINE T PROTEIN CREAT RATIOo n 09-15-2022 Protein (U) [Mass/Vol] 14.1 mg/dL Critically high <=12.0 [facility] Comment on above: Performed By: #### U RTPCR #### [facility] [address] [address] [address] Dwight Waters UR PROT CREAT RAT 0.14 Normal [facility] Comment on above: Performed By: #### U RTPCR #### [facility] [id number] Diwght Waters URINE CREAT 98.89 mg/dL Normal 20.00-300.[address] [facility] Comment on above: Performed By: #### U RTPCR #### [facility] [address] [id number] Dwight Waters CAROTID ART BILon 022 US CAROTID ART [...] MÓNICA JIMENEZ Date: 2022-08-28 13:20 Normal [facility] FK506 (TACROLIMUS) WHOLE BLO ODon 08-17-2022 Tacrolimus (FK506), Blood 9.9 ng/mL Normal 2.0-20.0 [facility] Comment on above: Result Comment: Trou gh (immediately following transplant) 15.0 . Trough (steady state, 2 weeks or more after transplant): 3.0 - 8.0 . Performed by LC-MS/MS technology. Performed By: #### F [id number] #### [facility] [address] [place] [address] Dr. Dwight Waters BK VIRUS PCR QUANTon 022 BKV DNA QUANT PCR PLASMA Negative Normal Negative [facility] Comment on above: Result Comment: No B K DNA detected. . The linear range of the assay is 22 - 100,000,000 IU/mL. Performed By: #### U RTPCR #### [facility] [address] [place] [address] Dr. Dwight Waters Log10 BKV DNA Plasma Normal [facility] Comment on above: Performed By: #### U RTPCR #### [facility] [address] [place] [address] Dr. Dwight Waters ALBUMINon 08-14-2022 Albumin [Mass/Vol] 4.2 g/dL Normal 3.4-5.0 [facility] Comment on above: Performed By: #### F [id number] #### [facility] [address] [place] [address] Dr. Dwight Waters ALKALINE PHOSPHAon ALP [Catalytic activity/Vol] 92 U/L Normal 46-116 [facility] Comment on above: Performed By: #### C BC #### [facility] [address] [place] [address] Dr. Dwight Waters BILIRUBIN CONJUGATED (DIRECT )on 08-14-2022 BILI, CONJUGATED 0.3 mg/dL Critically high 0.0-0.2 [facility] Comment on above: Performed By: #### F [id number] #### [facility] [address] [place] [address] Dr. Dwight Waters BILIRUBIN TOTALon 08-14-2022 Bilirubin [Mass/Vol] 1.5 mg/dL Critically high 0.2-1.0 [facility] Comment on above: Performed By: #### F [id number] #### [facility] [address] [place] [address] Dr. Dwight Waters BUNon 08-14-2022 Urea nitrogen [Mass/Vol] 11.0 mg/dL Normal 7.0-18.0 [facility] Comment on above: Performed By: #### C BC #### [facility] [address] [place] [address] Dr. Dwight Waetrs CALCIUMon 08-14-2022 Calcium [Mass/Vol] 9.4 mg/dL Normal 8.5-10.1 [facility] Comment on above: Performed By: #### F [id number] #### [facility] [address] [place] [address] Dr. Dwight Waters CBC AUTO DIFFon 08-14-2022 BASO # 0.0 103/ul Normal 0.0-0.1 [facility] Comment on above: Performed By: #### C MP #### [facility] [address] [address] [address] Dwight Waters Basophils/100 WBC (Bld) 0.5 % Normal 0.2-2.0 [facility] Comment on above: Performed By: #### C MP #### [facility] [address] [place] [address] Dr. Dwight Waters EO # 0.2 103/ul Normal 0.0-0.7 [facility] Comment on above: Performed By: #### C MP #### [facility] [address] [place] [address] Dr. Dwight Waters Eosinophils/100 WBC (Bld) 2.6 % Normal 0.9-7.0 [facility] Comment on above: Performed By: #### C MP #### [facility] [address] [place] [address] Dr. Dwight Waters Erythrocyte distribution width (RBC) [Ratio] 13.1 % Normal 11.0-15.0 [facility] Comment on above: Performed By: #### C MP #### [facility] [address] [place] [address] Dr. Dwight Waters Hematocrit (Bld) [Volume fraction] 47.0 % Normal 42.0-54.0 [facility] Comment on above: Performed By: #### C MP #### [facility] [address] [place] [address] Dr. Dwight Waters Hemoglobin (Bld) [Mass/Vol] 15.3 g/dL Normal 14.0-18.0 [facility] Comment on above: Performed By: #### C MP #### [facility] [address] [place] [address] Dr. Dwight Waters IG # 0.01 10e3/ul Normal 0.00-0.03 [facility] Comment on above: Performed By: #### C MP #### [facility] [address] [place] [address] Dr. Dwight Waters IG % 0.1 % Normal 0.0-0.5 [facility] Comment on above: Performed By: #### C MP #### [facility] [address] [place] [address] Dr. Dwight Waters LYMPH # 2.3 103/ul Normal 1.2-3.8 [facility] Comment on above: Performed By: #### C MP #### [facility] [address] [place] [address] Dr. Dwight Waters Lymphocytes/100 WBC (Bld) 29.8 % Normal 20.5-60.0 [facility] Comment on above: Performed By: #### C MP #### [facility] [address] [place] [address] Dr. Dwight Waters MANUAL DIFF REQ NO Normal [facility] Comment on above: Performed By: #### C MP #### [facility] [address] [place] [address] Dr. Dwight Waters MCH (RBC) [Entitic mass] 28.2 pg Normal 25.9-34.0 [facility] Comment on above: Performed By: #### C MP #### [facility] [address] [place] [address] Dr. Dwight Waters MCHC (RBC) [Mass/Vol] 32.6 g/dL Normal 29.9-35.2 [facility] Comment on above: Performed By: #### C MP #### [facility] [address] [place] [address] Dr. Dwight Waters MCV (RBC) [Entitic vol] 86.7 fL Normal 80.0-94.0 [facility] Comment on above: Performed By: #### C MP #### [facility] [address] [place] [address] Dr. Dwight Waters MONO # 0.7 103/ul Normal 0.3-0.8 [facility] Comment on above: Performed By: #### C MP #### [facility] [address] [place] [address] Dr. Dwight Waters Monocytes/100 WBC (Bld) 8.5 % Normal 1.7-12.0 [facility] Comment on above: Performed By: #### C MP #### [facility] [address] [place] [address] Dr. Dwight Waters NEUT # 4.5 103/ul Normal 1.4-6.5 [facility] Comment on above: Performed By: #### C MP #### [facility] [address] [place] [address] Dr. Dwight Waters Neutrophils/100 WBC (Bld) 58.5 % Normal 43.0-75.0 [facility] Comment on above: Performed By: #### C MP #### [facility] [address] [place] [address] Dr. Dwight Waters Platelet mean volume (Bld) [Entitic vol] 9.7 fL Normal 9.5-13.5 [facility] Comment on above: Performed By: #### C MP #### [facility] [address] [place] [address] Dr. Dwight Waters PLT 266 103/ul Normal 150-450 [facility] Comment on above: Performed By: #### C MP #### [facility] [address] [place] [address] Dr. Dwight Waters RBC 5.42 106/ul Normal 4.70-6.10 [facility] Comment on above: Performed By: #### C MP #### [facility] [address] [place] [address] Dr. Dwight Waters WBC 7.6 103/ul Normal 4.0-11.0 [facility] Comment on above: Performed By: #### C MP #### [facility] [address] [place] [address] Dr. Dwight Waters CHLORIDEon 08-14-2022 Chloride [Moles/Vol] 104 mmol/L Normal 98-107 [facility] Comment on above: Performed By: #### C BC #### [facility] [address] [place] [address] Dr. Dwight Waters CO2on 08-14-2022 CO2 [Moles/Vol] 27.9 mmol/L Normal 21.0-32.0 [facility] Comment on above: Performed By: #### C BC #### [facility] [address] [place] [address] Dr. Dwight Waters CREATININEon 08-14-2022 Creatinine [Mass/Vol] 1.08 mg/dL Normal 0.70-1.30 [facility] Comment on above: Performed By: #### C BC #### [facility] [address] [place] [address] Dr. Dwight Waters EGFR-AF RUSSIAN >60 Normal >=60 [facility] Comment on above: Performed By: #### C BC #### [facility] [address] [place] [address] Dr. Dwight Waters EGFR-NON AF RUSSIAN >60 Normal >=60 [facility] Comment on above: Performed By: #### C BC #### [facility] [address] [place] [address] Dr. Dwight Waters GGTon 08-14-2022 Gamma glutamyl transferase [Catalytic activity/Vol] 24 U/L Normal 15-85 [facility] Comment on above: Performed By: #### F [id number] #### [facility] [address] [place] [address] Dr. Dwight Waters GLUCOSE BLOODon 08-14-2022 Glucose [Mass/Vol] 111 mg/dL Critically high 74-106 [facility] Comment on above: Performed By: #### C BC #### [facility] [address] [place] [address] Dr. Dwight Waters MAGNESIUMon 08-14-2022 Magnesium [Mass/Vol] 1.4 mg/dL Critically low 1.8-2.4 [facility] Comment on above: Performed By: #### C BC #### [facility] [address] [place] [address] Dr. Dwight Waters NAon 08-14-2022 Sodium [Moles/Vol] 140 mmol/L Normal 136-145 [facility] Comment on above: Performed By: #### F [id number] #### [facility] [address] [address] [address] Dwight Waters PHOSPHORUSon 08-14-2022 Phosphate [Mass/Vol] 3.1 mg/dL Normal 2.6-4.7 [facility] Comment on above: Performed By: #### C BC #### [facility] [address] [place] [address] Dr. Dwight Waters POTASSIUMon 08-14-2022 Potassium [Moles/Vol] 3.5 mmol/L Normal 3.5-5.1 [facility] Comment on above: Performed By: #### C BC #### [facility] [address] [place] [address] Dr. Dwight Waters SGOTon 08-14-2022 AST [Catalytic activity/Vol] 17 U/L Normal 15-37 [facility] Comment on above: Performed By: #### F [id number] #### [facility] [address] [place] [address] Dr. Dwight Waters SGPTon 08-14-2022 ALT [Catalytic activity/Vol] 22 U/L Normal 16-63 [facility] Comment on above: Performed By: #### F [id number] #### [facility] [address] [place] [address] Dr. Dwight Waters URINE T PROTEIN CREAT RATIOo n 08-14-2022 Protein (U) [Mass/Vol] 10.7 mg/dL Normal <=12.0 [facility] Comment on above: Performed By: #### F [id number] #### [facility] [address] [place] [address] Dr. Dwight Waters UR PROT CREAT RAT 0.10 Normal [facility] Comment on above: Performed By: #### F [id number] #### [facility] [address] [place] [address] Dr. Dwight Waters URINE CREAT 104.28 mg/dL Normal 20.00-300.00 [facility] Comment on above: Performed By: #### F [id number] #### [facility] [address] [place] [address] Dr. Dwight Waters NEPHROSTOMY TUBE REMOVALon 0 [...] Assisting physician present for entire procedure: yes [facility]iology Study observation (narrative) [facility] FK506 (TACROLIMUS) WHOLE BLO ODon 07-06-2022 Tacrolimus (FK506), Blood 9.5 ng/mL Normal 2.0-20.0 [facility] Comment on above: Result Comment: Trou gh (immediately following transplant) 15.0 . Trough (steady state, 2 weeks or more after transplant): 3.0 - 8.0 . Performed by LC-MS/MS technology. Performed By: #### C MP #### [facility] [address] [place] [id number] [address] Dwight Waters ALBUMINon 07-03-2022 Albumin [Mass/Vol] 3.7 g/dL Normal 3.4-5.0 [facility] Comment on above: Performed By: #### U RTPCR #### [facility] [address] [place] [address] Dr. Dwight Waters ALKALINE PHOSPHAon ALP [Catalytic activity/Vol] 76 U/L Normal 46-116 [facility] Comment on above: Performed By: #### U RTPCR #### [facility] [address] [place] [address] Dr. Dwight Waters BILIRUBIN CONJUGATED (DIRECT )on 07-03-2022 BILI, CONJUGATED 0.3 mg/dL Critically high 0.0-0.2 [facility] Comment on above: Performed By: #### C BC #### [facility] [address] [place] [address] Dr. Dwight Waters BILIRUBIN TOTALon 07-03-2022 Bilirubin [Mass/Vol] 1.4 mg/dL Critically high 0.2-1.0 [facility] Comment on above: Performed By: #### C BC #### [facility] [address] [place] [address] Dr. Dwight Waters BUNon 07-03-2022 Urea nitrogen [Mass/Vol] 15.0 mg/dL Normal 7.0-18.0 [facility] Comment on above: Performed By: #### C BC #### [facility] [address] [place] [address] Dr. Dwight Waters CALCIUMon 07-03-2022 Calcium [Mass/Vol] 9.4 mg/dL Normal 8.5-10.1 [facility] Comment on above: Performed By: #### U RTPCR #### [facility] [address] [place] [address] Dr. Dwight Waters CBC AUTO DIFFon 07-03-2022 BASO # 0.0 103/ul Normal 0.0-0.1 [facility] Comment on above: Performed By: #### U RTPCR #### [facility] [address] [place] [address] Dr. Dwight Waters Basophils/100 WBC (Bld) 0.6 % Normal 0.2-2.0 [facility] Comment on above: Performed By: #### U RTPCR #### [facility] [address] [place] [address] Dr. Dwight Waters EO # 0.2 103/ul Normal 0.0-0.7 [facility] Comment on above: Performed By: #### U RTPCR #### [facility] [address] [place] [address] Dr. Dwight Waters Eosinophils/100 WBC (Bld) 3.5 % Normal 0.9-7.0 [facility] Comment on above: Performed By: #### U RTPCR #### [facility] [address] [place] [address] Dr. Dwight Waters Erythrocyte distribution width (RBC) [Ratio] 12.9 % Normal 11.0-15.0 [facility] Comment on above: Performed By: #### U RTPCR #### [facility] [address] [place] [address] Dr. Dwight Waters Hematocrit (Bld) [Volume fraction] 44.2 % Normal 42.0-54.0 [facility] Comment on above: Performed By: #### U RTPCR #### [facility] [address] [place] [address] Dr. Dwight Waters Hemoglobin (Bld) [Mass/Vol] 14.6 g/dL Normal 14.0-18.0 [facility] Comment on above: Performed By: #### U RTPCR #### [facility] [address] [place] [address] Dr. Dwight Waters IG # 0.02 10e3/ul Normal 0.00-0.03 [facility] Comment on above: Performed By: #### U RTPCR #### [facility] [address] [place] [address] Dr. Dwight Waters IG % 0.3 % Normal 0.0-0.5 [facility] Comment on above: Performed By: #### U RTPCR #### [facility] [address] [place] [address] Dr. Dwight Waters LYMPH # 2.0 103/ul Normal 1.2-3.8 [facility] Comment on above: Performed By: #### U RTPCR #### [facility] [address] [place] [address] Dr. Dwight Waters Lymphocytes/100 WBC (Bld) 28.4 % Normal 20.5-60.0 [facility] Comment on above: Performed By: #### U RTPCR #### [facility] [address] [place] [address] Dr. Dwight Waters MANUAL DIFF REQ NO Normal [facility] Comment on above: Performed By: #### U RTPCR #### [facility] [address] [place] [address] Dr. Dwight Waters MCH (RBC) [Entitic mass] 28.6 pg Normal 25.9-34.0 [facility] Comment on above: Performed By: #### U RTPCR #### [facility] [address] [place] [address] Dr. Dwight Waters MCHC (RBC) [Mass/Vol] 33.0 g/dL Normal 29.9-35.2 [facility] Comment on above: Performed By: #### U RTPCR #### [facility] [address] [place] [address] Dr. Dwight Waters MCV (RBC) [Entitic vol] 86.7 fL Normal 80.0-94.0 [facility] Comment on above: Performed By: #### U RTPCR #### [facility] [address] [place] [address] Dr. Dwight Waters MONO # 0.6 103/ul Normal 0.3-0.8 [facility] Comment on above: Performed By: #### U RTPCR #### [facility] [address] [place] [address] Dr. Dwight Waters Monocytes/100 WBC (Bld) 9.1 % Normal 1.7-12.0 [facility] Comment on above: Performed By: #### U RTPCR #### [facility] [address] [place] [address] Dr. Dwight Waters NEUT # 4.0 103/ul Normal 1.4-6.5 [facility] Comment on above: Performed By: #### U RTPCR #### [facility] [address] [place] [address] Dr. Dwight Waters Neutrophils/100 WBC (Bld) 58.1 % Normal 43.0-75.0 [facility] Comment on above: Performed By: #### U RTPCR #### [facility] [address] [place] [address] Dr. Dwight Waters Platelet mean volume (Bld) [Entitic vol] 9.5 fL Normal 9.5-13.5 [facility] Comment on above: Performed By: #### U RTPCR #### [facility] [address] [place] [address] Dr. Dwight Waters PLT 292 103/ul Normal 150-450 [facility] Comment on above: Performed By: #### U RTPCR #### [facility] [address] [place] [address] Dr. Dwight Waters RBC 5.10 106/ul Normal 4.70-6.10 [facility] Comment on above: Performed By: #### U RTPCR #### [facility] [address] [place] [address] Dr. Dwight Waters WBC 6.9 103/ul Normal 4.0-11.0 [facility] Comment on above: Performed By: #### U RTPCR #### [facility] [address] [place] [address] Dr. Dwight Waters CHLORIDEon 07-03-2022 Chloride [Moles/Vol] 108 mmol/L Critically high 98-107 [facility] Comment on above: Performed By: #### C BC #### [facility] [address] [place] [address] Dr. Dwight Waters CO2on 07-03-2022 CO2 [Moles/Vol] 25.2 mmol/L Normal 21.0-32.0 [facility] Comment on above: Performed By: #### C BC #### [facility] [address] [place] [address] Dr. Dwight Waters CREATININEon 07-03-2022 Creatinine [Mass/Vol] 1.03 mg/dL Normal 0.70-1.30 [facility] Comment on above: Performed By: #### U RTPCR #### [facility] [address] [place] [address] Dr. Dwight Waters EGFR-AF RUSSIAN >60 Normal >=60 [facility] Comment on above: Performed By: #### U RTPCR #### [facility] [address] [place] [address] Dr. Dwight Waters EGFR-NON AF RUSSIAN >60 Normal >=60 [facility] Comment on above: Performed By: #### U RTPCR #### [facility] [address] [place] [address] Dr. Dwight Waters GGTon 07-03-2022 Gamma glutamyl transferase [Catalytic activity/Vol] 31 U/L Normal 15-85 [facility] Comment on above: Performed By: #### U RTPCR #### [facility] [address] [place] [address] Dr. Dwight Waters GLUCOSE BLOODon 07-03-2022 Glucose [Mass/Vol] 119 mg/dL Critically high 74-106 [facility] Comment on above: Performed By: #### U RTPCR #### [facility] [address] [place] [address] Dr. Dwight Waters MAGNESIUMon 07-03-2022 Magnesium [Mass/Vol] 1.4 mg/dL Critically low 1.8-2.4 [facility] Comment on above: Performed By: #### C BC #### [facility] [address] [place] [address] Dr. Dwight Waters NAon 07-03-2022 Sodium [Moles/Vol] 142 mmol/L Normal 136-145 [facility] Comment on above: Performed By: #### C MP #### [facility] [address] [place] [address] Dr. Dwight Waters PHOSPHORUSon 07-03-2022 Phosphate [Mass/Vol] 3.4 mg/dL Normal 2.6-4.7 [facility] Comment on above: Performed By: #### C BC #### [facility] [address] [place] [address] Dr. Dwight Waters POTASSIUMon 07-03-2022 Potassium [Moles/Vol] 4.1 mmol/L Normal 3.5-5.1 [facility] Comment on above: Performed By: #### C BC #### [facility] [address] [place], [place] [address] Dr. Dwight Waters SGOTon 07-03-2022 AST [Catalytic activity/Vol] 14 U/L Critically low 15-37 [facility] Comment on above: Performed By: #### C BC #### [facility] [address] [place] [id number] Dwight Waters SGPTon 07-03-2022 ALT [Catalytic activity/Vol] 25 U/L Normal 16-63 [facility] Comment on above: Performed By: #### C BC #### [facility] [address] [place] [id number] Dwight Waters US KIDNEYSon 07-03-2022 US KIDNEYS Ultrasound kidneys, bilateral HISTORY: Transplant of kidney , pain in the right lower quadrant COMPARISON: None. TECHNIQUE: Transabdominal ultrasound imaging of both kidneys was performed. FINDINGS: The [place] kidneys are diffusely echogenic and atrophic with cortical thinning. The right kidney measures 8.3 x 3.5 x 4.07 m and the left measures 9.9 x 3.8 x 3.6 cm. No hydronephrosis of the [place] kidneys. There is a renal transplant in [...] stone involving the renal transplant. 2. Atrophic [place] kidneys. 3. Normal bladder. Electronically authenticated by: ARCELIA PIZARRO Date: 2022-07-03 17:22 Normal [facility] CT Abdomen and Pelvis WO con traston 06-27-2022 IMPRESSION: 1. Both [place] kidneys are atrophic with improvement in right-sided [...] Adrenals: Adrenal glands are unremarkable. Kidneys: Both [place] kidneys are atrophic. Interval improvement in right [place] kidney hydronephrosis since May 15, 2022. Status [...] Adrenals: Adrenal glands are unremarkable. Kidneys: Both [place] kidneys are atrophic. Interval improvement in right [place] kidney hydronephrosis since May 15, 2022. Status [...] aggressive osseous lesions. IMPRESSION IMPRESSION: 1. Both [place] kidneys are atrophic with improvement in right-sided hydronephrosis since May 15, 2022. 2. 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 No hydronephrosis. No discrete perinephric collection. 3. Partially imaged postsurgical changes related to prior liver transplant. 4. The bladder is decompressed, limiting evaluation. [facility] Radiology Study observation (narrative) [facility] CT Abdomen and Pelvis WO con trastOrdered By: Gera Lu on 06-27-2022 [facility] Work Phone: CBC AUTO DIFFon 06-18-2022 BASO # 0.0 103/ul Normal 0.0-0.1 [facility] Comment on above: Performed By: #### U RTPCR #### [facility] [address] [place] [address] [address] Dwight Waters Basophils/100 WBC (Bld) 0.5 % Normal 0.2-2.0 [facility] Comment on above: Performed By: #### U RTPCR #### [facility] [address] [place] [address] [address] Dwight Waters EO # 0.2 103/ul Normal 0.0-0.7 [facility] Comment on above: Performed By: #### U RTPCR #### [facility] [address] [place] [address] Dr. Dwight Waters Eosinophils/100 WBC (Bld) 2.3 % Normal 0.9-7.0 [facility] Comment on above: Performed By: #### U RTPCR #### [facility] [address] [place] [address] [address] Dwight Waters Erythrocyte distribution width (RBC) [Ratio] 12.9 % Normal 11.0-15.0 [facility] Comment on above: Performed By: #### U RTPCR #### [facility] [address] [place] [address] Dr. Dwight Waters Hematocrit (Bld) [Volume fraction] 41.2 % Critically low 42.0-54.0 [facility] Comment on above: Performed By: #### U RTPCR #### [facility] [address] [address] [address] Dwight Waters Hemoglobin (Bld) [Mass/Vol] 13.3 g/dL Critically low 14.0-18.0 [facility] Comment on above: Performed By: #### U RTPCR #### [facility] [address] [place] [address] Dr. Dwight Waters IG # 0.04 10e3/ul Critically high 0.00-0.03 [facility] Comment on above: Performed By: #### U RTPCR #### [facility] [address] [place] [address] Dr. Dwight Waters IG % 0.5 % Normal 0.0-0.5 [facility] Comment on above: Performed By: #### U RTPCR #### [facility] [address] [place] [address] Dr. Dwight Waters LYMPH # 2.0 103/ul Normal 1.2-3.8 [facility] Comment on above: Performed By: #### U RTPCR #### [facility] [address] [place] [address] Dr. Dwight Waters Lymphocytes/100 WBC (Bld) 22.9 % Normal 20.5-60.0 [facility] Comment on above: Performed By: #### U RTPCR #### [facility] [address] [place] [address] Dr. Dwight Waters MANUAL DIFF REQ NO Normal [facility] Comment on above: Performed By: #### U RTPCR #### [facility] [address] [place] [address] Dr. Dwight Waters MCH (RBC) [Entitic mass] 28.7 pg Normal 25.9-34.0 [facility] Comment on above: Performed By: #### U RTPCR #### [facility] [address] [place] [address] Dr. Dwight Waters MCHC (RBC) [Mass/Vol] 32.3 g/dL Normal 29.9-35.2 [facility] Comment on above: Performed By: #### U RTPCR #### [facility] [address] [place] [address] Dr. Dwight Waters MCV (RBC) [Entitic vol] 88.8 fL Normal 80.0-94.0 [facility] Comment on above: Performed By: #### U RTPCR #### [facility] [address] [place] [address] Dr. Dwight Waters MONO # 0.8 103/ul Normal 0.3-0.8 [facility] Comment on above: Performed By: #### U RTPCR #### [facility] [address] [place] [address] [address] Dwight Waters Monocytes/100 WBC (Bld) 9.7 % Normal 1.7-12.0 [facility] Comment on above: Performed By: #### U RTPCR #### [facility] [address] [place] [address] [address] Dwight Waters NEUT # 5.6 103/ul Normal 1.4-6.5 [facility] Comment on above: Performed By: #### U RTPCR #### [facility] [address] [place] [address] Dr. Dwight Waters Neutrophils/100 WBC (Bld) 64.1 % Normal 43.0-75.0 [facility] Comment on above: Performed By: #### U RTPCR #### [facility] [address] [place] [address] Dr. Dwight Waters Platelet mean volume (Bld) [Entitic vol] 10.0 fL Normal 9.5-13.5 [facility] Comment on above: Performed By: #### U RTPCR #### [facility] [address] [place] [address] Dr. Dwight Waters PLT 270 103/ul Normal 150-450 [facility] Comment on above: Performed By: #### U RTPCR #### [facility] [address] [place] [address] Dr. Dwight Waters RBC 4.64 106/ul Critically low 4.70-6.10 [facility] Comment on above: Performed By: #### U RTPCR #### [facility] [address] [place] [address] Dr. Dwight Waters WBC 8.7 103/ul Normal 4.0-11.0 [facility] Comment on above: Performed By: #### U RTPCR #### [facility] [address] [place] [address] Dr. Dwight Waters CULTURE URINEon 06-18-2022 CULTURE URINE Culture Observations : NO GROWTH. Normal [facility] Comment on above: Performed By: #### U RTPCR #### [facility] [address] [place] [address] Dr. Dwight Waters Covid-19 PCR (CVDTB)on 05-31 [...] for this test is supported by the Interactive Art Director of Health and Human Service's declaration [...] used). Performed By: #### C BC #### [facility] [address] [place] [address] Dr. Dwight Waters ER URINE PROFILEon Bilirubin Ql (U) Negative Normal NEGATIVE [facility] Comment on above: Performed By: #### U RTPCR #### [facility] [address] [place] [address] Dr. Dwight Waters Clarity (U) CLEAR Normal CLEAR [facility] Comment on above: Performed By: #### U RTPCR #### [facility] [address] [place] [address] Dr. Dwight Waters Color (U) YELLOW Normal YELLOW [facility] Comment on above: Performed By: #### U RTPCR #### [facility] [address] [place] [address] Dr. Dwight Waters ERUAHD A micrscopic examination will be performed if indicated. Normal [facility] Comment on above: Performed By: #### U RTPCR #### [facility] [address] [place] [address] [address] Dwight Waters Glucose Ql (U) Negative Normal NEGATIVE [facility] Comment on above: Performed By: #### U RTPCR #### [facility] [address] [place] [address] Dr. Dwight Waters Hemoglobin Ql (U) LARGE Abnormal NEGATIVE [facility] Comment on above: Performed By: #### U RTPCR #### [facility] [address] [place] [address] Dr. Dwight Waters Ketones Ql (U) Negative Normal NEGATIVE [facility] Comment on above: Performed By: #### U RTPCR #### [facility] [address] [place] [address] Dr. Dwight Waters LEUKOCYTES TRACE Abnormal NEGATIVE [facility] Comment on above: Performed By: #### U RTPCR #### [facility] [address] [place] [address] Dr. Dwight Waters Nitrite Ql (U) Negative Normal NEGATIVE [facility] Comment on above: Performed By: #### U RTPCR #### [facility] [address] [place] [address] Dr. Dwight Waters pH (U) 6.0 [pH] Normal 5-9 [facility] Comment on above: Performed By: #### U RTPCR #### [facility] [address] [place] [address] Dr. Dwight Waters Protein (U) [Mass/Vol] 30 mg/dL Abnormal NEGAT MAYUR/ TRACE [facility] Comment on above: Performed By: #### U RTPCR #### [facility] [address] [place] [address] Dr. Dwight Waters SPEC GRAVITY >=1.030 Abnormal 1.005-<=1.025 [facility] Comment on above: Performed By: #### U RTPCR #### [facility] [address] [place] [address] Dr. Dwight Waters UR MICRO IND INDICATED Normal [facility] Comment on above: Performed By: #### U RTPCR #### [facility] [address] [place] [address] Dr. Dwight Waters Urobilinogen Qn (U) 0.2 {Alyssa'U}/dL Normal 0.2 - 1. 0 [facility] Comment on above: Performed By: #### U RTPCR #### [facility] [address] [address] [address] Dwight Waters PROF 14(COMP METB)on 022 Albumin [Mass/Vol] 3.7 g/dL Normal 3.4-5.0 [facility] Comment on above: Performed By: #### C MP #### [facility] [address] [place] [address] [address] Dwight Waters Albumin/Globulin [Mass ratio] 0.9 {ratio} Normal [facility] Comment on above: Performed By: #### C MP #### [facility] [address] [place] [address] Dr. Dwight Waters ALP [Catalytic activity/Vol] 80 U/L Normal 46-116 [facility] Comment on above: Performed By: #### C MP #### [facility] [address] [place] [address] [address] Dwight Waters ALT [Catalytic activity/Vol] 24 U/L Normal 16-63 [facility] Comment on above: Performed By: #### C MP #### [facility] [address] [address] [address] Dwight Waters Anion gap [Moles/Vol] 12.9 mmol/L Normal [facility] Comment on above: Performed By: #### C MP #### [facility] [address] [address] [address] Dwight Waters AST [Catalytic activity/Vol] 17 U/L Normal 15-37 [facility] Comment on above: Performed By: #### C MP #### [facility] [address] [address] [address] Dwight Waters Bilirubin [Mass/Vol] 0.8 mg/dL Normal 0.2-1.0 [facility] Comment on above: Performed By: #### C MP #### [facility] [address] [address] [address] Dwight Waters Calcium [Mass/Vol] 9.4 mg/dL Normal 8.5-10.1 [facility] Comment on above: Performed By: #### C MP #### [facility] [address] [place] [address] Dr. Dwight Waters Chloride [Moles/Vol] 106 mmol/L Normal 98-107 [facility] Comment on above: Performed By: #### C MP #### [facility] [address] [place] [address] Dr. Dwight Waters CO2 [Moles/Vol] 25.3 mmol/L Normal 21.0-32.0 [facility] Comment on above: Performed By: #### C MP #### [facility] [address] [place] [address] Dr. Dwight Waters Creatinine [Mass/Vol] 1.29 mg/dL Normal 0.70-1.30 [facility] Comment on above: Performed By: #### C MP #### [facility] [address] [place] [address] Dr. Dwight Waters EGFR-AF RUSSIAN >60 Normal >=60 [facility] Comment on above: Performed By: #### C MP #### [facility] [address] [place] [address] Dr. Dwight Waters EGFR-NON AF RUSSIAN 59 mL/min/1.73m2 Critically low >=60 [facility] Comment on above: Performed By: #### C MP #### [facility] [address] [place] [address] Dr. Dwight Waters Globulin (S) [Mass/Vol] 4.2 g/dL Normal [facility] Comment on above: Performed By: #### C MP #### [facility] [address] [place] [address] Dr. Dwight Waters Glucose [Mass/Vol] 106 mg/dL Normal 74-106 [facility] Comment on above: Performed By: #### C MP #### [facility] [address] [place] [address] Dr. Dwight Waters Potassium [Moles/Vol] 4.2 mmol/L Normal 3.5-5.1 [facility] Comment on above: Performed By: #### C MP #### [facility] [address] [place] [address] Dr. Dwight Waters Protein [Mass/Vol] 7.9 g/dL Normal 6.4-8.2 [facility] Comment on above: Performed By: #### C MP #### [facility] [address] [place] [address] Dr. Dwight Waters Sodium [Moles/Vol] 140 mmol/L Normal 136-145 [facility] Comment on above: Performed By: #### C MP #### [facility] [address] [place] [address] Dr. Dwight Waters Urea nitrogen [Mass/Vol] 22.0 mg/dL Critically high 7.0-18.0 [facility] Comment on above: Performed By: #### C MP #### [facility] [address] [place] [address] Dr. Dwight Waters Urea nitrogen/Creatinine [Mass ratio] 17.1 mg/mg Normal [facility] Comment on above: Performed By: #### C MP #### [facility] [address] [place] [address] Dr. Dwight Waters URINE MICROSCOPIC ONLYon BACTERIA TRACE Abnormal NONE SEEN [facility] Comment on above: Performed By: #### U RTPCR #### [facility] [address] [place] [address] Dr. Dwight Waters Bacteria identified Cx Nom (U) INDICATED Normal [facility] Comment on above: Performed By: #### U RTPCR #### [facility] [address] [place] [address] Dr. Dwight Waters CAST NONE SEEN Normal NONE SEEN [facility] Comment on above: Performed By: #### U RTPCR #### [facility] [address] [place] [address] Dr. Dwight Waters Crystals LM Nom (Urine sed) NONE SEEN Normal NONE SEEN [facility] Comment on above: Performed By: #### U RTPCR #### [facility] [address] [address] [address] Dwight Waters Epithelial cells LM Ql (Urine sed) NONE SEEN Normal NONE SEEN /RARE [facility] Comment on above: Performed By: #### U RTPCR #### [facility] [address] [place] [address] Dr. Dwight Waters MUCOUS NONE SEEN Normal NONE SEEN [facility] Comment on above: Performed By: #### U RTPCR #### [facility] [address] [place] [address] Dr. Dwight Waters RBC 5-10 Abnormal 0-2 [facility] Comment on above: Performed By: #### U RTPCR #### [facility] [address] [place] [address] Dr. Dwight Waters WBC 10-20 Abnormal NONE SEEN [facility] Comment on above: Performed By: #### U RTPCR #### [facility] [address] [place] [address] Dr. Dwight Waters ALLOSCREEN RECIPIENT (POST T X PRA)on 06-13-2022 AB SPECIFICITY CLASS COMMENT Antibody Specificity testing performed by [employer]. cPRA calculation based on identification of HLA antibody specificities at MFI >2000 and/or presence of CREG antibodies. [facility] Comment on above: Some of the reagents used for testing in the Clinical Histocompatibility Laboratory have yet to be approved by the FDA. Our certification by CLIA to perform high complexity tests allows us to use these reagents in the context of a stringent QC program, and obviates the need for FDA approval.Testing performed by the [facility] Clinical Histocompatibility Laboratory. [facility] number: [id number]. CLIA number: [id number], Director: Carlito Merchant, PhD, D([facility]). ANTIBODY SPECIFICITY INTERPRETATION Detected [facility] CLASS I SPECIFICITIES Not detected [facility] CLASS II SPECIFICITIES Not detected [facility] HLA Ab (S) 0 % 0 [facility] EXTRA MICROon 06-13-2022 [facility] URINE CULTUREOrdered By: Jah Upton on 06-13-2022 Bacteria identified Cx Nom (Unsp spec) Growth [facility] Bacteria identified Cx Nom (Unsp spec) 10,000-50,000 CFU/mL Mixed skin shimon [facility] Comment on above: Multiple bacterial m orphotypes present. Suggest appropriate recollection if clinically indicated. [facility] CBC,PLATELETSon 06-12-2022 Erythrocyte distribution width (RBC) [Ratio] 13.0 % 10.9 - 14.3 % [facility] Hematocrit (Bld) [Volume fraction] 43.2 % 39.6 - 48.8 % [facility] Hemoglobin (Bld) [Mass/Vol] 13.9 g/dL 13.4 - 16.8 g/dL [facility] Interpretation and review of laboratory results Normal [facility] MCH (RBC) [Entitic mass] 28.7 pg 26.1 - 33.3 pg [facility] MCHC (RBC) [Mass/Vol] 32.2 g/dL 31.9 - 36.5 g/dL [facility] MCV (RBC) [Entitic vol] 89.1 fL 79.0 - 94.5 fL [facility] Platelet mean volume (Bld) [Entitic vol] 10.5 fL 8.7 - 12.3 fL [facility] Platelets (Bld) [#/Vol] 269 10*3/uL 146 - 337 K/uL [facility] RBC (Bld) [#/Vol] 4.85 10*6/uL [facility] WBC (Bld) [#/Vol] 7.68 10*3/uL 3.73 - 10. 10 K/uL [facility] CHEM 7 (LYTES,BUN,CREA,GLUC) on 06-12-2022 Anion gap [Moles/Vol] 14 mmol/L 7 - 17 mmol/L [facility] Chloride [Moles/Vol] 106 mmol/L 98 - 10 8 mmol/L [facility] CO2 [Moles/Vol] 25 mmol/L 21 - 31 mmol/L [facility] Creatinine [Mass/Vol] 1.26 mg/dL 0.70 - 1.30 mg/dL [facility] GFR/1.73 sq M.predicted CKD-EPI (S/P/Bld) [Vol rate/Area] 69 >=60 mL/min/1.73m2 [facility] Comment on above: Reported eGFR is bas ed on the CKD-EPI 2020 equation using creatinine, age, and sex. Glucose [Mass/Vol] 83 mg/dL 70 - 99 mg/dL [facility] Osmolality Calc [Osmolality] [facility] Potassium [Moles/Vol] 3.8 mmol/L 3.5 - 5.0 mmol/L [facility] Sodium [Moles/Vol] 141 mmol/L 135 - 145 mmol/L [facility] Urea nitrogen [Mass/Vol] 18 mg/dL 7 - 25 mg/dL [facility] Urea nitrogen/Creatinine [Mass ratio] 14 mg/mg [facility] GGTon 06-12-2022 Gamma glutamyl transferase [Catalytic activity/Vol] 20 U/L 8 - 64 U/L [facility] HEMOGLOBIN [id number] By: Link [employer] on 06-12-2022 Average glucose Estimated from glycated hemoglobin (Bld) [Mass/Vol] 126 mg/dL [facility] HbA1c (Bld) [Mass fraction] 6.0 % High 4.7 - 5.6 % [facility] Interpretation and review of laboratory results Abnormal [facility] HEPATIC FUNCTION PANELon Albumin [Mass/Vol] 4.3 g/dL 3.5 - 5.0 g/dL [facility] ALP [Catalytic activity/Vol] 78 U/L 32 - 126 U/L [facility] ALT [Catalytic activity/Vol] 12 U/L 10 - 52 U/L [facility] AST [Catalytic activity/Vol] 16 U/L 10 - 39 U/L [facility] Bilirubin [Mass/Vol] 1.0 mg/dL <1.5 [facility] Bilirubin.direct [Mass/Vol] 0.2 mg/dL <0.3 [facility] Protein [Mass/Vol] 7.5 g/dL 6.4 - 8.3 g/dL [facility] No Panel Informationon 06-12 Interpretation and review of laboratory results Normal [facility] PTH INTACTOrdered By: Marli Lizarraga on 06-12-2022 Interpretation and review of laboratory results Abnormal [facility] Parathyrin.intact [Mass/Vol] 79.7 pg/mL High 14.0 - 72.0 pg[facility]IN[facility] REFLEX TO CULTURE PERFORMABLEon 06-12-2022 Appearance (U) Clear Clear [facility] Bacteria LM Ql (Urine sed) ABSENT ABSENT [facility] Color (U) Yellow Yellow [facility] Epithelial cells.squamous LM Ql (Urine sed) 1/hpf = 1+ 1/hpf = 1+, 2-5/hpf = 2+, 0/hpf = 0+, ABSENT [facility] Glucose Test strip (U) [Mass/Vol] Negative Negative [facility] Interpretation and review of laboratory results Abnormal [facility] Ketones (U) [Mass/Vol] Trace Abnormal Negative [facility] Leukocyte esterase Test strip Ql (U) Small Abnormal Negative [facility] Nitrite Ql (U) Negative Negative [facility] pH (U) 5.5 [pH] 5.0 - 7.0 [facility] Protein (U) [Mass/Vol] 30 mg/dL Abnormal Negative [facility] RBC (U) [#/Vol] Trace Abnormal Negative [facility] RBC LM.HPF (Urine sed) [#/Area] 0-2 0 - 2 /HPF [facility] Specific gravity (U) [Rel density] 1.026 [facility] Urobilinogen (U) [Mass/Vol] 0.2 E.U./dL 0.2 E.U/dL, 1.0 E.U/dL [facility] WBC LM.HPF (Urine sed) [#/Area] 10-20 Abnormal 0 - 5 /HPF [facility] UR[facility] PROTEIN/CREA RATIO, RA NDOMon 06-12-2022 Creatinine (24H U) [Mass/Vol] 231.68 mg/dL [facility] Protein Unsp time (U) [Mass/Vol] 49 mg/dL [facility] Protein/Creatinine (U) [Mass ratio] 0.211 mg/g [facility] ([facility]CR[facility]IMUS) WHOLE BLO ODon 06-09-2022 Tacrolimus (FK506), Blood 9.8 ng/mL Normal 2.0-20.0 [facility] Comment on above: Result Comment: Trou gh (immediately following transplant) 15.0 . Trough (steady state, 2 weeks or more after transplant): 3.0 - 8.0 . Performed by LC-MS/MS technology. Performed By: #### U RTPCR #### [facility] [address] [place] [address] Dr. Dwight Waters ALBUMINon 06-06-2022 Albumin [Mass/Vol] 3.8 g/dL Normal 3.4-5.0 [facility] Comment on above: Performed By: #### C MP #### [facility] [address] [place] [address] Dr. Dwight Waters ALKALINE PHOSPHAon ALP [Catalytic activity/Vol] 82 U/L Normal 46-116 [facility] Comment on above: Performed By: #### C MP #### [facility] [address] [place] [address] Dr. Dwight Waters BILIRUBIN CONJUGATED (DIRECT )on 06-06-2022 BILI, CONJUGATED 0.2 mg/dL Normal 0.0-0.2 [facility] Comment on above: Performed By: #### C BC #### [facility] [address] [place] [address] Dr. Dwight Waters BILIRUBIN TOTALon 06-06-2022 Bilirubin [Mass/Vol] 1.0 mg/dL Normal 0.2-1.0 [facility] Comment on above: Performed By: #### C BC #### [facility] [address] [place] [address] Dr. Dwight Waters BUNon 06-06-2022 Urea nitrogen [Mass/Vol] 18.0 mg/dL Normal 7.0-18.0 [facility] Comment on above: Performed By: #### C BC #### [facility] [address] [place] [address] Dr. Dwight Waters CALCIUMon 06-06-2022 Calcium [Mass/Vol] 9.4 mg/dL Normal 8.5-10.1 [facility] Comment on above: Performed By: #### C MP #### [facility] [address] [place] [address] Dr. Dwight Waters CBC AUTO DIFFon 06-06-2022 BASO # 0.1 103/ul Normal 0.0-0.1 [facility] Comment on above: Performed By: #### U RTPCR #### [facility] [address] [place] [address] Dr. Dwight Waters Basophils/100 WBC (Bld) 0.8 % Normal 0.2-2.0 [facility] Comment on above: Performed By: #### U RTPCR #### [facility] [address] [place] [address] Dr. Dwight Waters EO # 0.3 103/ul Normal 0.0-0.7 [facility] Comment on above: Performed By: #### U RTPCR #### [facility] [address] [place] [address] Dr. Dwight Waters Eosinophils/100 WBC (Bld) 3.3 % Normal 0.9-7.0 [facility] Comment on above: Performed By: #### U RTPCR #### [facility] [address] [place] [address] Dr. Dwight Waters Erythrocyte distribution width (RBC) [Ratio] 12.4 % Normal 11.0-15.0 [facility] Comment on above: Performed By: #### U RTPCR #### [facility] [address] [place] [address] Dr. Dwight Waters Hematocrit (Bld) [Volume fraction] 45.1 % Normal 42.0-54.0 [facility] Comment on above: Performed By: #### U RTPCR #### [facility] [address] [place] [address] Dr. Dwight Waters Hemoglobin (Bld) [Mass/Vol] 14.4 g/dL Normal 14.0-18.0 [facility] Comment on above: Performed By: #### U RTPCR #### [facility] [address] [address] [address] Dwight Waters IG # 0.01 10e3/ul Normal 0.00-0.03 [facility] Comment on above: Performed By: #### U RTPCR #### [facility] [address] [place] [address] Dr. Dwight Waters IG % 0.1 % Normal 0.0-0.5 [facility] Comment on above: Performed By: #### U RTPCR #### [facility] [address] [place] [address] Dr. Dwight Waters LYMPH # 2.2 103/ul Normal 1.2-3.8 [facility] Comment on above: Performed By: #### U RTPCR #### [facility] [address] [place] [address] Dr. Dwight Waters Lymphocytes/100 WBC (Bld) 30.0 % Normal 20.5-60.0 [facility] Comment on above: Performed By: #### U RTPCR #### [facility] [address] [place] [address] Dr. Dwight Waters MANUAL DIFF REQ NO Normal [facility] Comment on above: Performed By: #### U RTPCR #### [facility] [address] [place] [address] Dr. wDight Waters MCH (RBC) [Entitic mass] 28.2 pg Normal 25.9-34.0 [facility] Comment on above: Performed By: #### U RTPCR #### [facility] [address] [place] [address] Dr. Dwight Waters MCHC (RBC) [Mass/Vol] 31.9 g/dL Normal 29.9-35.2 [facility] Comment on above: Performed By: #### U RTPCR #### [facility] [address] [place] [address] Dr. Dwight Waters MCV (RBC) [Entitic vol] 88.3 fL Normal 80.0-94.0 [facility] Comment on above: Performed By: #### U RTPCR #### [facility] [address] [place] [address] Dr. Dwight Waters MONO # 0.6 103/ul Normal 0.3-0.8 [facility] Comment on above: Performed By: #### U RTPCR #### [facility] [address] [place] [address] Dr. Dwight Waters Monocytes/100 WBC (Bld) 8.2 % Normal 1.7-12.0 [facility] Comment on above: Performed By: #### U RTPCR #### [facility] [address] [place] [address] Dr. Dwight Waters NEUT # 4.3 103/ul Normal 1.4-6.5 [facility] Comment on above: Performed By: #### U RTPCR #### [facility] [address] [place] [address] Dr. Dwight Waters Neutrophils/100 WBC (Bld) 57.6 % Normal 43.0-75.0 [facility] Comment on above: Performed By: #### U RTPCR #### [facility] [address] [place] [address] Dr. Dwight Waters Platelet mean volume (Bld) [Entitic vol] 9.7 fL Normal 9.5-13.5 [facility] Comment on above: Performed By: #### U RTPCR #### [facility] [address] [place] [address] Dr. Dwight Waters PLT 297 103/ul Normal 150-450 [facility] Comment on above: Performed By: #### U RTPCR #### [facility] [address] [place] [address] Dr. Dwight Waters RBC 5.11 106/ul Normal 4.70-6.10 [facility] Comment on above: Performed By: #### U RTPCR #### [facility] [address] [place] [address] Dr. Dwight Waters WBC 7.5 103/ul Normal 4.0-11.0 [facility] Comment on above: Performed By: #### U RTPCR #### [facility] [address] [place] [address] Dr. Dwight Waters CHLORIDEon 06-06-2022 Chloride [Moles/Vol] 107 mmol/L Normal 98-107 [facility] Comment on above: Performed By: #### C BC #### [facility] [address] [place] [address] Dr. Dwight Waters CO2on 06-06-2022 CO2 [Moles/Vol] 27.4 mmol/L Normal 21.0-32.0 [facility] Comment on above: Performed By: #### C BC #### [facility] [address] [place] [address] Dr. Dwight Waters CREATININEon 06-06-2022 Creatinine [Mass/Vol] 1.20 mg/dL Normal 0.70-1.30 [facility] Comment on above: Performed By: #### C BC #### [facility] [address] [place] [address] Dr. Dwight Waters EGFR-AF RUSSIAN >60 Normal >=60 [facility] Comment on above: Performed By: #### C BC #### [facility] [address] [place] [address] Dr. Dwight Waters EGFR-NON AF RUSSIAN >60 Normal >=60 [facility] Comment on above: Performed By: #### C BC #### [facility] [address] [place] [address] Dr. Dwight Waters GGTon 06-06-2022 Gamma glutamyl transferase [Catalytic activity/Vol] 29 U/L Normal 15-85 [facility] Comment on above: Performed By: #### C BC #### [facility] [address] [place] [address] Dr. Dwight Waters GLUCOSE BLOODon 06-06-2022 Glucose [Mass/Vol] 112 mg/dL Critically high 74-106 [facility] Comment on above: Performed By: #### C BC #### [facility] [address] [place] [address] Dr. Dwight Waters MAGNESIUMon 06-06-2022 Magnesium [Mass/Vol] 1.3 mg/dL Critically low 1.8-2.4 [facility] Comment on above: Performed By: #### C MP #### [facility] [address] [place] [address] Dr. Dwight Waters NAon 06-06-2022 Sodium [Moles/Vol] 141 mmol/L Normal 136-145 [facility] Comment on above: Performed By: #### C MP #### [facility] [address] [place] [address] Dr. Dwight Waters PHOSPHORUSon 06-06-2022 Phosphate [Mass/Vol] 3.1 mg/dL Normal 2.6-4.7 [facility] Comment on above: Performed By: #### C MP #### [facility] [address] [place] [address] Dr. Dwight Waters POTASSIUMon 06-06-2022 Potassium [Moles/Vol] 4.3 mmol/L Normal 3.5-5.1 [facility] Comment on above: Performed By: #### C BC #### [facility] [address] [place] [address] Dr. Dwight Albert 06-06-2022 AST [Catalytic activity/Vol] 16 U/L Normal 15-37 [facility] Comment on above: Performed By: #### C BC #### [facility] [address] [place] [address] Dr. Dwight OLVERAPTon 06-06-2022 ALT [Catalytic activity/Vol] 50 U/L Normal 16-63 [facility] Comment on above: Performed By: #### C BC #### [facility] [address] [place] [address] Dr. Dwight Waters Bacteria identified Cx Nom ( Bld)on 05-21-2022 Bacteria identified Cx Nom (Unsp spec) NO GROWTH DAY 5 OF 5 [facility] Results may be compromised due to volume of BACT\ALERT bottle exceeding 10mLs . The optimal blood volume is 8-10 mls per aerobic/anaerobic blood culture bottle. [facility] CALCIUMon 05-20-2022 Calcium [Mass/Vol] 9.1 mg/dL 8.6 - 10. 5 mg/dL [facility] CBC,PLATELETSon 05-20-2022 Erythrocyte distribution width (RBC) [Ratio] 12.5 % 10.9 - 14.3 % [facility] Hematocrit (Bld) [Volume fraction] 37.1 % Low 39.6 - 48.8 % [facility] Hemoglobin (Bld) [Mass/Vol] 12.3 g/dL Low 13.4 - 16.8 g/dL [facility] Interpretation and review of laboratory results Abnormal [facility] MCH (RBC) [Entitic mass] 28.9 pg 26.1 - 33.3 pg [facility] MCHC (RBC) [Mass/Vol] 33.2 g/dL 31.9 - 36.5 g/dL [facility] MCV (RBC) [Entitic vol] 87.3 fL 79.0 - 94.5 fL [facility] Platelet mean volume (Bld) [Entitic vol] 9.9 fL 8.7 - 12.3 fL [facility] Platelets (Bld) [#/Vol] 234 10*3/uL 146 - 337 K/uL [facility] RBC (Bld) [#/Vol] 4.25 10*6/uL Low [facility] WBC (Bld) [#/Vol] 6.31 10*3/uL 3.73 - 10. 10 K/uL [facility] CHEM 7 (LYTES,BUN,CREA,GLUC) on 05-20-2022 Anion gap [Moles/Vol] 15 mmol/L 7 - 17 mmol/L [facility] Chloride [Moles/Vol] 111 mmol/L High 98 - 10 8 mmol/L [facility] CO2 [Moles/Vol] 22 mmol/L 21 - 31 mmol/L [facility] Creatinine [Mass/Vol] 1.10 mg/dL 0.70 - 1.30 mg/dL [facility] GFR/1.73 sq M.predicted CKD-EPI (S/P/Bld) [Vol rate/Area] 81 >=60 mL/min/1.73m2 [facility] Comment on above: Reported eGFR is bas ed on the CKD-EPI 2020 equation using creatinine, age, and sex. Glucose [Mass/Vol] 92 mg/dL 70 - 99 mg/dL [facility] Interpretation and review of laboratory results Abnormal [facility] Osmolality Calc [Osmolality] 302 [facility] Potassium [Moles/Vol] 4.4 mmol/L 3.5 - 5.0 mmol/L [facility] Sodium [Moles/Vol] 144 mmol/L 135 - 145 mmol/L [facility] Urea nitrogen [Mass/Vol] 18 mg/dL 7 - 25 mg/dL [facility] Urea nitrogen/Creatinine [Mass ratio] 16 mg/mg [facility] MAGNESIUMon 05-20-2022 Interpretation and review of laboratory results Abnormal [facility] Magnesium [Mass/Vol] 1.5 mg/dL Low 1.6 - 2 .6 mg/dL [facility] No Panel Informationon 05-20 Interpretation and review of laboratory results Normal [facility] PHOSPHATE, INORGANICon 05-20 Phosphate [Mass/Vol] 3.3 mg/dL 2.2 - 4 .6 mg/dL [facility] RF Unspecified body region V iews during [...] projections of kidneys, ureters, and bladder. FINDINGS: Direct [employer] Operator images: Direct [employer] Operator radiographs of the abdomen reveal a [...] Contrast refluxes up the ureter to the [place] right kidney that is grossly normal appearing. [...] projections of kidneys, ureters, and bladder. FINDINGS: [employer] Operator images: [employer] Operator radiographs of the abdomen reveal a [...] Contrast refluxes up the ureter to the [place] right kidney that is grossly normal appearing. [...] I have reviewed and approved this report. [facility] Radiology Study observation (narrative) [facility] RF Unspecified body region V iews during surgeryOrdered By: Lizz Campos on 05-20-2022 [facility] Work Phone: CALCIUMon 05-19-2022 Calcium [Mass/Vol] 9.2 mg/dL 8.6 - 10. 5 mg/dL [facility] Calcium [Mass/Vol] 8.6 mg/dL 8.6 - 10. 5 mg/dL [facility] CBC,PLATELETSon 05-19-2022 Erythrocyte distribution width (RBC) [Ratio] 12.4 % 10.9 - 14.3 % [facility] Hematocrit (Bld) [Volume fraction] 38.0 % Low 39.6 - 48.8 % [facility] Hemoglobin (Bld) [Mass/Vol] 12.0 g/dL Low 13.4 - 16.8 g/dL [facility] Interpretation and review of laboratory results Abnormal [facility] MCH (RBC) [Entitic mass] 28.6 pg 26.1 - 33.3 pg [facility] MCHC (RBC) [Mass/Vol] 31.6 g/dL Low 31.9 - 36.5 g/dL [facility] MCV (RBC) [Entitic vol] 90.5 fL 79.0 - 94.5 fL [facility] Platelet mean volume (Bld) [Entitic vol] 9.7 fL 8.7 - 12.3 fL [facility] Platelets (Bld) [#/Vol] 199 10*3/uL 146 - 337 K/uL [facility] RBC (Bld) [#/Vol] 4.20 10*6/uL Low [facility] WBC (Bld) [#/Vol] 6.81 10*3/uL 3.73 - 10. 10 K/uL [facility] CHEM 7 (LYTES,BUN,CREA,GLUC) on 05-19-2022 Anion gap [Moles/Vol] 13 mmol/L 7 - 17 mmol/L [facility] Chloride [Moles/Vol] 105 mmol/L 98 - 10 8 mmol/L [facility] CO2 [Moles/Vol] 30 mmol/L 21 - 31 mmol/L [facility] Creatinine [Mass/Vol] 1.39 mg/dL High 0.70 - 1.30 mg/dL [facility] GFR/1.73 sq M.predicted CKD-EPI (S/P/Bld) [Vol rate/Area] 61 >=60 mL/min/1.73m2 [facility] Comment on above: Reported eGFR is bas ed on the CKD-EPI 2020 equation using creatinine, age, and sex. Glucose [Mass/Vol] 121 mg/dL High 70 - 99 mg/dL [facility] Interpretation and review of laboratory results Abnormal [facility] Osmolality Calc [Osmolality] 303 [facility] Potassium [Moles/Vol] 3.8 mmol/L 3.5 - 5.0 mmol/L [facility] Sodium [Moles/Vol] 144 mmol/L 135 - 145 mmol/L [facility] Urea nitrogen [Mass/Vol] 18 mg/dL 7 - 25 mg/dL [facility] Urea nitrogen/Creatinine [Mass ratio] 13 mg/mg [facility] Anion gap [Moles/Vol] 15 mmol/L 7 - 17 mmol/L [facility] Chloride [Moles/Vol] 106 mmol/L 98 - 10 8 mmol/L [facility] CO2 [Moles/Vol] 24 mmol/L 21 - 31 mmol/L [facility] Creatinine [Mass/Vol] 1.46 mg/dL High 0.70 - 1.30 mg/dL [facility] GFR/1.73 sq M.predicted CKD-EPI (S/P/Bld) [Vol rate/Area] 58 Low >=60 mL/min/1.73m2 [facility] Comment on above: Reported eGFR is bas ed on the CKD-EPI 2020 equation using creatinine, age, and sex. Glucose [Mass/Vol] 103 mg/dL High 70 - 99 mg/dL [facility] Interpretation and review of laboratory results Abnormal [facility] Osmolality Calc [Osmolality] 298 [facility] Potassium [Moles/Vol] 3.9 mmol/L 3.5 - 5.0 mmol/L [facility] Sodium [Moles/Vol] 141 mmol/L 135 - 145 mmol/L [facility] Urea nitrogen [Mass/Vol] 21 mg/dL 7 - 25 mg/dL [facility] Urea nitrogen/Creatinine [Mass ratio] 14 mg/mg [facility] MAGNESIUMon 05-19-2022 Magnesium [Mass/Vol] 2.0 mg/dL 1.6 - 2 .6 mg/dL [facility] Magnesium [Mass/Vol] 1.7 mg/dL 1.6 - 2 .6 mg/dL [facility] No Panel Informationon 05-19 Interpretation and review of laboratory results Normal [facility] Interpretation and review of laboratory results Normal [facility] PHOSPHATE, INORGANICon 05-19 Phosphate [Mass/Vol] 3.0 mg/dL 2.2 - 4 .6 mg/dL [facility] Phosphate [Mass/Vol] 2.7 mg/dL 2.2 - 4 .6 mg/dL [facility] CALCIUMon 05-18-2022 Calcium [Mass/Vol] 9.1 mg/dL 8.6 - 10. 5 mg/dL [facility] CBC,PLATELETSon 05-18-2022 Erythrocyte distribution width (RBC) [Ratio] 12.5 % 10.9 - 14.3 % [facility] Hematocrit (Bld) [Volume fraction] 37.3 % Low 39.6 - 48.8 % [facility] Hemoglobin (Bld) [Mass/Vol] 11.9 g/dL Low 13.4 - 16.8 g/dL [facility] Interpretation and review of laboratory results Abnormal [facility] MCH (RBC) [Entitic mass] 28.9 pg 26.1 - 33.3 pg [facility] MCHC (RBC) [Mass/Vol] 31.9 g/dL 31.9 - 36.5 g/dL [facility] MCV (RBC) [Entitic vol] 90.5 fL 79.0 - 94.5 fL [facility] Platelet mean volume (Bld) [Entitic vol] 10.1 fL 8.7 - 12.3 fL [facility] Platelets (Bld) [#/Vol] 189 10*3/uL 146 - 337 K/uL [facility] RBC (Bld) [#/Vol] 4.12 10*6/uL Low [facility] WBC (Bld) [#/Vol] 10.19 10*3/uL High 3.73 - 10 .10 K/uL [facility] CHEM 7 (LYTES,BUN,CREA,GLUC) on 05-18-2022 Anion gap [Moles/Vol] 13 mmol/L 7 - 17 mmol/L [facility] Chloride [Moles/Vol] 102 mmol/L 98 - 10 8 mmol/L [facility] CO2 [Moles/Vol] 26 mmol/L 21 - 31 [facility]L [facility] Creatinine [Mass/Vol] 1.91 mg/dL High 0.70 - 1.30 mg/dL [facility] GFR/1.73 sq M.predicted CKD-EPI (S/P/Bld) [Vol rate/Area] 42 Low >=60 mL/min/1.73m2 [facility] Comment on above: Reported eGFR is bas ed on the CKD-EPI 2020 equation using creatinine, age, and sex. Glucose [Mass/Vol] 158 mg/dL High 70 - 99 mg/dL [facility] Osmolality Calc [Osmolality] 297 [facility] Potassium [Moles/Vol] 4.0 mmol/L 3.5 - 5.0 mmol/L [facility] Sodium [Moles/Vol] 137 mmol/L 135 - 145 mmol/L [facility] Urea nitrogen [Mass/Vol] 30 mg/dL High 7 - 25 mg/dL [facility] Urea nitrogen/Creatinine [Mass ratio] 16 mg/mg [facility] CHEM 7 (LYTES,BUN,CREA,GLUC) Ordered By: Tamiko Thapa on 05-18-2022 Anion gap [Moles/Vol] 13 mmol/L 7 - 17 mmol/L [facility] Chloride [Moles/Vol] 104 mmol/L 98 - 10 8 mmol/L [facility] CO2 [Moles/Vol] 26 mmol/L 21 - 31 mmol/L [facility] Creatinine [Mass/Vol] 2.96 mg/dL High 0.70 - 1.30 mg/dL [facility] GFR/1.73 sq M.predicted CKD-EPI (S/P/Bld) [Vol rate/Area] 25 Low >=60 mL/min/1.73m2 [facility] Comment on above: Reported eGFR is bas ed on the CKD-EPI 2020 equation using creatinine, age, and sex. Glucose [Mass/Vol] 136 mg/dL High 70 - 99 mg/dL [facility] Interpretation and review of laboratory results Abnormal [facility] Osmolality Calc [Osmolality] 304 [facility] Potassium [Moles/Vol] 4.2 mmol/L 3.5 - 5.0 mmol/L [facility] Sodium [Moles/Vol] 139 mmol/L 135 - 145 mmol/L [facility] Urea nitrogen [Mass/Vol] 41 mg/dL High 7 - 25 mg/dL [facility] Urea nitrogen/Creatinine [Mass ratio] 14 mg/mg [facility] MAGNESIUMon 05-18-2022 Magnesium [Mass/Vol] 2.2 mg/dL 1.6 - 2 .6 mg/dL [facility] Interpretation and review of laboratory results Normal [facility] Magnesium [Mass/Vol] 1.7 mg/dL 1.6 - 2 .6 mg/dL [facility] No Panel Informationon 05-18 Interpretation and review of laboratory results Abnormal [facility] Interpretation and review of laboratory results Normal [facility] PHOSPHATE, INORGANICon 05-18 Phosphate [Mass/Vol] 2.0 mg/dL Low 2.2 - 4 .6 mg/dL [facility] Interpretation and review of laboratory results Normal [facility] Phosphate [Mass/Vol] 2.8 mg/dL 2.2 - 4 .6 mg/dL [facility] PT,INR,PTTon 05-18-2022 aPTT Coag (PPP) [Time] 31.0 s [facility] INR Coag (Bld) [Relative time] 1.1 {INR} [facility] Interpretation and review of laboratory results Abnormal [facility] PT Coag (PPP) [Time] 14.4 s High [facility] URINE CULTUREOrdered By: Sylvia Campos on 05-18-2022 Bacteria identified Cx Nom (Unsp spec) No Growth [facility] CBC,PLATELETSon 05-17-2022 Erythrocyte distribution width (RBC) [Ratio] 12.8 % 10.9 - 14.3 % [facility] Hematocrit (Bld) [Volume fraction] 42.8 % 39.6 - 48.8 % [facility] Hemoglobin (Bld) [Mass/Vol] 13.3 g/dL Low 13.4 - 16.8 g/dL [facility] Interpretation and review of laboratory results Abnormal [facility] MCH (RBC) [Entitic mass] 28.9 pg 26.1 - 33.3 pg [facility] MCHC (RBC) [Mass/Vol] 31.1 g/dL Low 31.9 - 36.5 g/dL [facility] MCV (RBC) [Entitic vol] 92.8 fL 79.0 - 94.5 fL [facility] Platelet mean volume (Bld) [Entitic vol] 10.3 fL 8.7 - 12.3 fL [facility] Platelets (Bld) [#/Vol] 188 10*3/uL 146 - 337 K/uL [facility] RBC (Bld) [#/Vol] 4.61 10*6/uL [facility] WBC (Bld) [#/Vol] 16.61 10*3/uL High 3.73 - 10 .10 K/uL [facility] CHEM 7 (LYTES,BUN,CREA,GLUC) Ordered By: Kaylah Mc on 05-17-2022 Anion gap [Moles/Vol] 15 mmol/L 7 - 17 mmol/L [facility] Chloride [Moles/Vol] 103 mmol/L 98 - 10 8 mmol/L [facility] CO2 [Moles/Vol] 23 mmol/L 21 - 31 mmol/L [facility] Creatinine [Mass/Vol] 5.95 mg/dL High 0.70 - 1.30 mg/dL [facility] GFR/1.73 sq M.predicted CKD-EPI (S/P/Bld) [Vol rate/Area] 11 Low >=60 mL/min/1.73m2 [facility] Comment on above: Reported eGFR is bas ed on the CKD-EPI 2020 equation using creatinine, age, and sex. Glucose [Mass/Vol] 165 mg/dL High 70 - 99 mg/dL [facility] Interpretation and review of laboratory results Abnormal [facility] Osmolality Calc [Osmolality] 305 [facility] Potassium [Moles/Vol] 4.6 mmol/L 3.5 - 5.0 mmol/L [facility] Sodium [Moles/Vol] 136 mmol/L 135 - 145 mmol/L [facility] Urea nitrogen [Mass/Vol] 52 mg/dL High 7 - 25 mg/dL [facility] Urea nitrogen/Creatinine [Mass ratio] 9 [facility] (LYTES,BUN,CREA,GLUC) Ordered By: Kehinde Gutierrez on 05-17-2022 Anion gap [Moles/Vol] 24 mmol/L High 7 - 17 mmol/L [facility] Chloride [Moles/Vol] 100 mmol/L 98 - 10 8 mmol/L [facility] CO2 [Moles/Vol] 16 mmol/L Low 21 - 31 mmol/L [facility] Creatinine [Mass/Vol] 8.08 mg/dL High 0.70 - 1.30 mg/dL [facility] GFR/1.73 sq M.predicted CKD-EPI (S/P/Bld) [Vol rate/Area] 7 Low >=60 mL/min/1.73m2 [facility] Comment on above: Reported eGFR is bas ed on the CKD-EPI 2020 equation using creatinine, age, and sex. Glucose [Mass/Vol] 164 mg/dL High 70 - 99 mg/dL [facility] Interpretation and review of laboratory results Abnormal [facility] Osmolality Calc [Osmolality] 305 [facility] Potassium [Moles/Vol] 5.0 mmol/L 3.5 - 5.0 mmol/L [facility] Sodium [Moles/Vol] 135 mmol/L 135 - 145 mmol/L [facility] Urea nitrogen [Mass/Vol] 56 mg/dL High 7 - 25 mg/dL [facility] Urea nitrogen/Creatinine [Mass ratio] 7 mg/mg [facility] LAVENDER TOP TUBEon 05-17-20 [facility] MAGNESIUMon 05-17-2022 Interpretation and review of laboratory results Normal [facility] Magnesium [Mass/Vol] 1.8 mg/dL 1.6 - 2 .6 mg/dL [facility] Interpretation and review of laboratory results Normal [facility] Magnesium [Mass/Vol] 1.6 mg/dL 1.6 - 2 .6 mg/dL [facility] No Panel Informationon 05-17 [facility] PHOSPHATE, INORGANICon 05-17 Interpretation and review of laboratory results Abnormal [facility] Phosphate [Mass/Vol] 4.9 mg/dL High 2.2 - 4 .6 mg/dL [facility] PT,INR,PTTon 05-17-2022 aPTT Coag (PPP) [Time] 33.0 s [facility] INR Coag (Bld) [Relative time] 1.3 {INR} High [facility] Interpretation and review of laboratory results Abnormal [facility] PT Coag (PPP) [Time] 15.7 s High [facility] Portable XR Chest Viewson IMPRESSION: [...] Stable cardiomegaly. IMPRESSION IMPRESSION: No acute findings. [facility] Radiology Study observation (narrative) [facility] Portable XR Chest ViewsOrder ed By: David Sanz on 05-17-2022 [facility] Work Phone: URINALYSISOrdered By: Michael patel Ma on 05-17-2022 Appearance (U) Cloudy Abnormal Clear [facility] Comment on above: Results may be inacc urate due to color interference. Clinical correlation recommended. Bacteria LM Ql (Urine sed) ABSENT ABSENT [facility] Color (U) Red Abnormal Yellow [facility] Comment on above: Results may be inacc urate due to color interference. Clinical correlation recommended. Epithelial cells.squamous LM Ql (Urine sed) ABSENT 1/hpf = 1+, 2-5/hpf = 2+, 0/hpf = 0+, ABSENT [facility] Glucose Test strip (U) [Mass/Vol] Negative Negative [facility] Comment on above: Results may be inacc urate due to color interference. Clinical correlation recommended. Interpretation and review of laboratory results Abnormal [facility] Ketones (U) [Mass/Vol] Trace Abnormal Negative [facility] Comment on above: Results may be inacc urate due to color interference. Clinical correlation recommended. Leukocyte esterase Test strip Ql (U) Large Abnormal Negative [facility] Comment on above: Results may be inacc urate due to color interference. Clinical correlation recommended. Nitrite Ql (U) Negative Negative [facility] Comment on above: Results may be inacc urate due to color interference. Clinical correlation recommended. pH (U) 5.0 [pH] 5.0 - 7.0 [facility] Comment on above: Results may be inacc urate due to color interference. Clinical correlation recommended. Protein (U) [Mass/Vol] mg/dL Abnormal Negative [facility] Comment on above: Results may be inacc urate due to color interference. Clinical correlation recommended. RBC (U) [#/Vol] Large Abnormal Negative [facility] Comment on above: Results may be inacc urate due to color interference. Clinical correlation recommended. RBC LM.HPF (Urine sed) [#/Area] /[HPF] Abnormal 0 - 2 /HPF [facility] Specific gravity (U) [Rel density] 1.016 [facility] Comment on above: Results may be inacc urate due to color interference. Clinical correlation recommended. Urobilinogen (U) [Mass/Vol] 0.2 E.U./dL 0.2 E.U/dL, 1.0 E.U/dL [facility] Comment on above: Results may be inacc urate due to color interference. Clinical correlation recommended. WBC LM.HPF (Urine sed) [#/Area] /[HPF] Abnormal 0 - 5 /HPF [facility] URINE CULTUREOrdered By: Tyler Tiwari on 05-17-2022 Bacteria identified Cx Nom (Unsp spec) No Growth [facility] CBC,PLATELETSon 05-16-2022 Erythrocyte distribution width (RBC) [Ratio] 12.9 % 10.9 - 14.3 % [facility] Hematocrit (Bld) [Volume fraction] 46.5 % 39.6 - 48.8 % [facility] Hemoglobin (Bld) [Mass/Vol] 14.7 g/dL 13.4 - 16.8 g/dL [facility] Interpretation and review of laboratory results Abnormal [facility] MCH (RBC) [Entitic mass] 28.3 pg 26.1 - 33.3 pg [facility] MCHC (RBC) [Mass/Vol] 31.6 g/dL Low 31.9 - 36.5 g/dL [facility] MCV (RBC) [Entitic vol] 89.6 fL 79.0 - 94.5 fL [facility] Platelet mean volume (Bld) [Entitic vol] 10.3 fL 8.7 - 12.3 fL [facility] Platelets (Bld) [#/Vol] 188 10*3/uL 146 - 337 K/uL [facility] RBC (Bld) [#/Vol] 5.19 10*6/uL [facility] WBC (Bld) [#/Vol] 12.55 10*3/uL High 3.73 - 10 .10 K/uL [facility] CHEM 7 (LYTES,BUN,CREA,GLUC) Ordered By: Alma Pena on 05-16-2022 Anion gap [Moles/Vol] 14 mmol/L 7 - 17 mmol/L [facility] Chloride [Moles/Vol] 103 mmol/L 98 - 10 8 mmol/L [facility] CO2 [Moles/Vol] 22 mmol/L 21 - 31 mmol/L [facility] Creatinine [Mass/Vol] 6.09 mg/dL High 0.70 - 1.30 mg/dL [facility] GFR/1.73 sq M.predicted CKD-EPI (S/P/Bld) [Vol rate/Area] 10 Low >=60 mL/min/1.73m2 [facility] Comment on above: Reported eGFR is bas ed on the CKD-EPI 2020 equation using creatinine, age, and sex. Glucose [Mass/Vol] 134 mg/dL High 70 - 99 mg/dL [facility] Interpretation and review of laboratory results Abnormal [facility] Osmolality Calc [Osmolality] 298 [facility] Potassium [Moles/Vol] 4.9 mmol/L 3.5 - 5.0 mmol/L [facility] Sodium [Moles/Vol] 134 mmol/L Low 135 - 145 mmol/L [facility] Comment on above: Results inconsistent with previous results Urea nitrogen [Mass/Vol] 49 mg/dL High 7 - 25 mg/dL [facility] Urea nitrogen/Creatinine [Mass ratio] 8 mg/mg [facility] CHEM 7 (LYTES,BUN,CREA,GLUC) on 05-16-2022 Anion gap [Moles/Vol] 17 mmol/L 7 - 17 mmol/L [facility] Chloride [Moles/Vol] 106 mmol/L 98 - 10 8 mmol/L [facility] CO2 [Moles/Vol] 22 mmol/L 21 - 31 mmol/L [facility] Creatinine [Mass/Vol] 5.23 mg/dL High 0.70 - 1.30 mg/dL [facility] GFR/1.73 sq M.predicted CKD-EPI (S/P/Bld) [Vol rate/Area] 13 Low >=60 mL/min/1.73m2 [facility] Comment on above: Reported eGFR is bas ed on the CKD-EPI 2020 equation using creatinine, age, and sex. Glucose [Mass/Vol] 116 mg/dL High 70 - 99 mg/dL [facility] Interpretation and review of laboratory results Abnormal [facility] Osmolality Calc [Osmolality] 305 [facility] Potassium [Moles/Vol] 4.6 mmol/L 3.5 - 5.0 mmol/L [facility] Sodium [Moles/Vol] 140 mmol/L 135 - 145 mmol/L [facility] Urea nitrogen [Mass/Vol] 42 mg/dL High 7 - 25 mg/dL [facility] Urea nitrogen/Creatinine [Mass ratio] 8 mg/mg [facility] EXTRA MICROon 05-16-2022 [facility] LT BLUE TOP TUBEon 2 [facility] LYTES (NA, K, CL) - URINE - RANDOMon 05-16-2022 Chloride (24H U) [Moles/Vol] 68 mmol/L [facility] Potassium (24H U) [Moles/Vol] 36.7 mmol/L [facility] Sodium (24H U) [Moles/Vol] 55 mmol/L [facility] The reference range has not been established for random urine specimens. The test result should be integrated into the clinical context for interpretation. [facility] MAGNESIUMon 05-16-2022 Interpretation and review of laboratory results Normal [facility] Magnesium [Mass/Vol] 1.7 mg/dL 1.6 - 2 .6 mg/dL [facility] NOVEL CORONAVIRUS PCROrdered By: Edson Candelario on 05-16-2022 SARS-CoV-2 (COVID-19) RNA ESTELITA+probe Ql (Unsp spec) Not detected NOT DETECTED [facility] Comment on above: [facility] Negative results do [...] use authorization for use by authorized laboratories. [facility] No Panel Informationon 05-16 [facility] OSMOLALITY, URINEon 05-16-20 Interpretation and review of laboratory results Normal [facility] Osmolality (U) [Osmolality] 320 mosm/kg [facility] The reference range has not been established for random urine specimens. The test result should be integrated into the clinical context for interpretation. [facility] PROCALCITONINon 05-16-2022 Interpretation and review of laboratory results Normal [facility] Procalcitonin [Mass/Vol] 0.18 ng/mL <0.50 [facility] Comment on above: Procalcitonin is an FDA-approved assay to help manage antibiotic treatment in patients with sepsis/septic shock and lower respiratory tract infections. Specifically, trending procalcitonin in these situations can be used to reduce the duration of antibiotics. Please refer to the Procalcitonin Guide on the [employer] Webpage for more guidance on how to use and trend procalcitonin in various clinical settings. [email or web address] Two common cutoffs associated with bacterial infections are as follows. Respiratory tract infections: >0.25 ng/mL Sepsis/septic shock: >0.5 ng/mL Procalcitonin should not be used alone as a diagnostic tool, however. All procalcitonin results should be interpreted in association with the patients clinical condition and all laboratory findings. [facility] PT,INR,PTTon 05-16-2022 aPTT Coag (PPP) [Time] 30.3 s [facility] INR Coag (Bld) [Relative time] 1.1 {INR} [facility] Interpretation and review of laboratory results Normal [facility] PT Coag (PPP) [Time] 14.1 s [facility] SARS-CoV-2 (COVID-19) RNA NA A+probe Ql (Unsp spec)Ordered By: Edson Candelario on 05-16-2022 Interpretation and review of laboratory results Normal [facility] TACROLIMUS LEVEL, TROUGH (WI E DRUG LEVEL)Ordered By: Mariama Nick on 05-16-2022 Interpretation and review of laboratory results Normal [facility] Tacrolimus (Bld) [Mass/Vol] 4.1 ng/mL Bone Marrow Transplant: 4.0-12.0, Therapeutic: 5.0-15.0 [facility] Method performed is a chemiluminescent microparticle immunoasssay on the [employer] i2000. The range is based on experience at [facility] and users should be aware that target concentrations vary widely depending on concomitant therapy, time post-transplant, and desired degree of immunosuppression. [facility] URINE PROTEIN/CREA RATIO, RA Smiley 05-16-2022 Creatinine (24H U) [Mass/Vol] 59.82 mg/dL [facility] Protein Unsp time (U) [Mass/Vol] 111 mg/dL [facility] Protein/Creatinine (U) [Mass ratio] 1.856 mg/g [facility] US for transplanted kidney [...] appearing vascular flow in the transplant kidney. [facility] Radiology Study observation (narrative) [facility] US for transplanted kidney l imitedOrdered By: Rosendo Matute on 05-16-2022 [facility] Work Phone: [facility] Basophils (Bld) [#/Vol] 10*3/uL 0.00 - 0.09 K/uL [facility] Basophils/100 WBC (Bld) 0.2 % [facility] Differential cell count method Nom (Bld) Electronic Differential [facility] Eosinophils (Bld) [#/Vol] 10*3/uL 0.00 - 0.48 K/uL [facility] Eosinophils/100 WBC (Bld) 0.0 % [facility] Erythrocyte distribution width (RBC) [Ratio] 12.8 % 10.9 - 14.3 % [facility] Hematocrit (Bld) [Volume fraction] 46.0 % 39.6 - 48.8 % [facility] Hemoglobin (Bld) [Mass/Vol] 14.6 g/dL 13.4 - 16.8 g/dL [facility] Immature granulocytes (Bld) [#/Vol] 0.07 10*3/uL <=0.08 [facility] Immature granulocytes/100 WBC (Bld) 0.4 % [facility] Interpretation and review of laboratory results Abnormal [facility] Lymphocytes (Bld) [#/Vol] 1.49 10*3/uL 0.83 - 3.57 K/uL [facility] Lymphocytes/100 WBC (Bld) 9.4 % [facility] MCH (RBC) [Entitic mass] 28.2 pg 26.1 - 33.3 pg [facility] MCHC (RBC) [Mass/Vol] 31.7 g/dL Low 31.9 - 36.5 g/dL [facility] MCV (RBC) [Entitic vol] 89.0 fL 79.0 - 94.5 fL [facility] Monocytes (Bld) [#/Vol] 1.45 10*3/uL High 0.24 - 0.93 K/uL [facility] Monocytes/100 WBC (Bld) 9.2 % [facility] Neutrophils (Bld) [#/Vol] 12.77 10*3/uL High 1.57 - 6.19 K/uL [facility] Nucleated RBC/100 WBC (Bld) [Ratio] 0.0 % <=0.2 /100 WBC [facility] Platelet mean volume (Bld) [Entitic vol] 9.9 fL 8.7 - 12.3 fL [facility] Platelets (Bld) [#/Vol] 250 10*3/uL 146 - 337 K/uL [facility] RBC (Bld) [#/Vol] 5.17 10*6/uL [facility] Segmented neutrophils/100 WBC (Bld) 80.8 % [facility] WBC (Bld) [#/Vol] 15.81 10*3/uL High 3.73 - 10 .10 K/uL [facility] CBC AUTO DIFFon 05-15-2022 BASO # 0.0 103/ul Normal 0.0-0.1 [facility] Comment on above: Performed By: #### C BC #### [facility] [address] [place] [address] Dr. Dwight Waters Basophils/100 WBC (Bld) 0.3 % Normal 0.2-2.0 [facility] Comment on above: Performed By: #### C BC #### [facility] [address] [place] [address] Dr. Dwight Waters EO # 0.1 103/ul Normal 0.0-0.7 [facility] Comment on above: Performed By: #### C BC #### [facility] [address] [place] [address] Dr. Dwight Waters Eosinophils/100 WBC (Bld) 0.8 % Critically low 0.9-7.0 [facility] Comment on above: Performed By: #### C BC #### [facility] [address] [place] [address] Dr. Dwight Waters Erythrocyte distribution width (RBC) [Ratio] 12.7 % Normal 11.0-15.0 [facility] Comment on above: Performed By: #### C BC #### [facility] [address] [place] [address] Dr. Dwight Waters Hematocrit (Bld) [Volume fraction] 43.5 % Normal 42.0-54.0 [facility] Comment on above: Performed By: #### C BC #### [facility] [address] [place] [address] Dr. Dwight Waters Hemoglobin (Bld) [Mass/Vol] 14.4 g/dL Normal 14.0-18.0 [facility] Comment on above: Performed By: #### C BC #### [facility] [address] [place] [address] Dr. Dwight Waters IG # 0.02 10e3/ul Normal 0.00-0.03 [facility] Comment on above: Performed By: #### C BC #### [facility] [address] [place] [address] Dr. Dwight Waters IG % 0.2 % Normal 0.0-0.5 [facility] Comment on above: Performed By: #### C BC #### [facility] [address] [place] [address] Dr. Dwight Waters LYMPH # 1.5 103/ul Normal 1.2-3.8 [facility] Comment on above: Performed By: #### C BC #### [facility] [address] [place] [address] Dr. Dwight Waters Lymphocytes/100 WBC (Bld) 12.5 % Critically low 20.5-60.0 [facility] Comment on above: Performed By: #### C BC #### [facility] [address] [place] [address] Dr. Dwight Waters MANUAL DIFF REQ NO Normal [facility] Comment on above: Performed By: #### C BC #### [facility] [address] [place] [address] Dr. Dwight Waters MCH (RBC) [Entitic mass] 28.6 pg Normal 25.9-34.0 [facility] Comment on above: Performed By: #### C BC #### [facility] [address] [place] [address] Dr. Dwight Waters MCHC (RBC) [Mass/Vol] 33.1 g/dL Normal 29.9-35.2 [facility] Comment on above: Performed By: #### C BC #### [facility] [address] [place] [address] Dr. Dwight Waters MCV (RBC) [Entitic vol] 86.3 fL Normal 80.0-94.0 [facility] Comment on above: Performed By: #### C BC #### [facility] [address] [place] [address] Dr. Dwight Waters MONO # 1.0 103/ul Critically high 0.3-0.8 [facility] Comment on above: Performed By: #### C BC #### [facility] [address] [place] [address] Dr. Dwight Waters Monocytes/100 WBC (Bld) 8.2 % Normal 1.7-12.0 [facility] Comment on above: Performed By: #### C BC #### [facility] [address] [place] [address] Dr. Dwight Waters NEUT # 9.1 103/ul Critically high 1.4-6.5 [facility] Comment on above: Performed By: #### C BC #### [facility] [address] [place] [address] Dr. Dwight Waters Neutrophils/100 WBC (Bld) 78.0 % Critically high 43.0-75.0 [facility] Comment on above: Performed By: #### C BC #### [facility] [address] [place] [address] Dr. Dwight Waters Platelet mean volume (Bld) [Entitic vol] 9.8 fL Normal 9.5-13.5 [facility] Comment on above: Performed By: #### C BC #### [facility] [address] [place] [address] Dr. Dwight Waters PLT 251 103/ul Normal 150-450 [facility] Comment on above: Performed By: #### C BC #### [facility] [address] [place] [address] Dr. Dwight Waters RBC 5.04 106/ul Normal 4.70-6.10 [facility] Comment on above: Performed By: #### C BC #### [facility] [address] [place], [place] [address] Dr. Dwight Waters WBC 11.6 103/ul Critically high 4.0-11.0 [facility] Comment on above: Performed By: #### C BC #### [facility] [address] [place], [place] [address] Dr. Dwight Waters CHEM 6 (LYTES, BUN CREA)on 0 05-15-2022 Anion gap [Moles/Vol] 12 mmol/L 7 - 17 mmol/L [facility] Chloride [Moles/Vol] 105 mmol/L 98 - 10 8 mmol/L [facility] CO2 [Moles/Vol] 26 mmol/L 21 - 31 mmol/L [facility] Creatinine [Mass/Vol] 2.85 mg/dL High 0.70 - 1.30 mg/dL [facility] GFR/1.73 sq M.predicted CKD-EPI (S/P/Bld) [Vol rate/Area] 26 Low >=60 mL/min/1.73m2 [facility] Comment on above: Reported eGFR is bas ed on the CKD-EPI 2020 equation using creatinine, age, and sex. Potassium [Moles/Vol] 4.6 mmol/L 3.5 - 5.0 mmol/L [facility] Sodium [Moles/Vol] 138 mmol/L 135 - 145 mmol/L [facility] Urea nitrogen [Mass/Vol] 32 mg/dL High 7 - 25 mg/dL [facility] Urea nitrogen/Creatinine [Mass ratio] 11 [facility] CONon [facility]-15 CT [...] transplanted kidney with moderate right-sided hydronephrosis. Atrophic [place] kidneys with moderate right-sided hydronephrosis. Multiple nonobstructive [...] transplanted kidney with moderate right-sided hydronephrosis. Atrophic [place] kidneys with moderate right-sided hydronephrosis. Multiple nonobstructive right renal calculi measuring up to 8 mm. FOLLOW-UP: Follow-up as clinically indicated. Electronically authenticated by: LYNDSAY JEAN Date: 2022-05-15 05:04 Normal [facility]30 SARS-CoV-2 (COVID-19) RNA ESTELITA+probe Ql (Unsp spec) Not detected Normal NOT DETECTED [facility] Comment on above: Result Comment: When [...] for this test is supported by the [place] of Health and Human Service's declaration that [...] used). Performed By: #### U RTPCR #### [facility] [address] [place] [address] [address] Dwight Waters GLUCOSEon 05-15-2022 Glucose [Mass/Vol] 141 mg/dL High 70 - 99 mg/dL [facility] GOLD TOP TUBEon 05-15-2022 [facility] HEPATIC FUNCTION PANELon Albumin [Mass/Vol] 4.3 g/dL 3.5 - 5.0 g/dL [facility] ALP [Catalytic activity/Vol] 85 U/L 32 - 126 U/L [facility] ALT [Catalytic activity/Vol] 13 U/L 10 - 52 U/L [facility] AST [Catalytic activity/Vol] 15 U/L 10 - 39 U/L [facility] Bilirubin [Mass/Vol] 0.8 mg/dL <1.5 [facility] Bilirubin.direct [Mass/Vol] 0.2 mg/dL <0.3 [facility] Interpretation and review of laboratory results Normal [facility] Protein [Mass/Vol] 7.3 g/dL 6.4 - 8.3 g/dL [facility] LIPASEon 05-15-2022 Lipase [Catalytic activity/Vol] 8 U/L Low 11 - 82 U/L [facility] No Panel Informationon 05-15 Interpretation and review of laboratory results Abnormal [facility] PROF 14(COMP METB)on 022 Albumin [Mass/Vol] 3.8 g/dL Normal 3.4-5.0 [facility] Comment on above: Performed By: #### U RTPCR #### [facility] [address] [place] [address] [address] Dwight Waters Albumin/Globulin [Mass ratio] 1.1 {ratio} Normal [facility] Comment on above: Performed By: #### U RTPCR #### [facility] [address] [place], [place] [address] Dr. Dwight Waters ALP [Catalytic activity/Vol] 92 U/L Normal 46-116 [facility] Comment on above: Performed By: #### U RTPCR #### [facility] [address] [place] [address] [address] Dwight Waters ALT [Catalytic activity/Vol] 25 U/L Normal 16-63 [facility] Comment on above: Performed By: #### U RTPCR #### [facility] [address] [place] [address] [address] Dwight Waters Anion gap [Moles/Vol] 14.6 mmol/L Normal [facility] Comment on above: Performed By: #### U RTPCR #### [facility] [address] [place] [address] [address] Dwight Waters AST [Catalytic activity/Vol] 17 U/L Normal 15-37 [facility] Comment on above: Performed By: #### U RTPCR #### [facility] [address] [place] [address] [address] Dwight Waters Bilirubin [Mass/Vol] 0.6 mg/dL Normal 0.2-1.0 [facility] Comment on above: Performed By: #### U RTPCR #### [facility] [address] [place] [address] [address] Dwight Waters Calcium [Mass/Vol] 9.9 mg/dL Normal 8.5-10.1 [facility] Comment on above: Performed By: #### U RTPCR #### [facility] [address] [place] [address] [address] Dwight Waters Chloride [Moles/Vol] 106 mmol/L Normal 98-107 [facility] Comment on above: Performed By: #### U RTPCR #### [facility] [address] [place] [address] [address] Dwight Waters CO2 [Moles/Vol] 24.2 mmol/L Normal 21.0-32.0 [facility] Comment on above: Performed By: #### U RTPCR #### [facility] [address] [place] [address] [address] Dwight Waters Creatinine [Mass/Vol] 1.58 mg/dL Critically high 0.70-1.30 [facility] Comment on above: Performed By: #### U RTPCR #### [facility] [address] [place] [address] [address] Dwight Waters EGFR-AF RUSSIAN 56 mL/min/1.73m2 Critically low >=60 [facility] Comment on above: Performed By: #### U RTPCR #### [facility] [address] [place] [address] [address] Dwight Waters EGFR-NON AF RUSSIAN 46 mL/min/1.73m2 Critically low >=60 [facility] Comment on above: Performed By: #### U RTPCR #### [facility] [address] [address] [address] Dwight Waters Globulin (S) [Mass/Vol] 3.5 g/dL Normal [facility] Comment on above: Performed By: #### U RTPCR #### [facility] [address] [address] [address] Dwight Waters Glucose [Mass/Vol] 162 mg/dL Critically high 74-106 [facility] Comment on above: Performed By: #### U RTPCR #### [facility] [address] [address] [address] Dwight Waters Potassium [Moles/Vol] 3.8 mmol/L Normal 3.5-5.1 [facility] Comment on above: Performed By: #### U RTPCR #### [facility] [address] [place] [address] [address] Dwight Waters Protein [Mass/Vol] 7.3 g/dL Normal 6.4-8.2 [facility] Comment on above: Performed By: #### U RTPCR #### [facility] [address] [place] [address] [address] Dwight Waters Sodium [Moles/Vol] 141 mmol/L Normal 136-145 [facility] Comment on above: Performed By: #### U RTPCR #### [facility] [address] [place] [address] [address] Dwight Waters Urea nitrogen [Mass/Vol] 22.0 mg/dL Critically high 7.0-18.0 [facility] Comment on above: Performed By: #### U RTPCR #### [facility] [address] [place], [place] [address] Dr. Dwight Waters Urea nitrogen/Creatinine [Mass ratio] 13.9 mg/mg Normal [facility] Comment on above: Performed By: #### U RTPCR #### [facility] [address] [place], [place] [address] Dr. Dwight Waters Portable XR Chest Viewson [...] chest. IMPRESSION IMPRESSION: No acute cardiopulmonary disease [facility] Radiology Study observation (narrative) [facility] Portable XR Chest ViewsOrder ed By: Vladislav Omer on 05-15-2022 [facility] URINE DIPSTICK; REFLEX MICRO SCOPY; REFLEX CULTURE PERFORMABLEon 05-15-2022 Appearance (U) [facility] Color (U) Yellow Yellow [facility] Glucose Test strip (U) [Mass/Vol] 100 mg/dL Abnormal Negative [facility] Interpretation and review of laboratory results [facility]normal [facility] Ketones (U) [Mass/Vol] Negative Negative [facility] Leukocyte esterase Test strip Ql (U) Large Abnormal Negative [facility] Nitrite Ql (U) Negative Negative [facility] pH (U) 6.0 [pH] 5.0 - 7.0 [facility] Protein (U) [Mass/Vol] 100 mg/dL Abnormal Negative [facility] RBC (U) [#/Vol] Large Abnormal Negative U [facility] Specific gravity (U) [Rel density] 1.010 [facility] Urobilinogen (U) [Mass/Vol] 0.2 E.U./dL 0.2 E.U/dL, 1.0 E.U/dL [facility] URINE MICROSCOPIC WITH REFLE X TO CULTUREOrdered By: Rey Bro on 05-15-2022 Bacteria LM Ql (Urine sed) ABSENT ABSENT [facility] Epithelial cells.squamous LM Ql (Urine sed) ABSENT 1/hpf = 1+, 2-5/hpf = 2+, 0/hpf = 0+, ABSENT [facility] Interpretation and review of laboratory results Abnormal [facility] RBC LM.HPF (Urine sed) [#/Area] /[HPF] Abnormal 0 - 2 /HPF [facility] WBC LM.HPF (Urine sed) [#/Area] 10-20 Abnormal 0 - 5 /HPF [facility] CT ABD/PELVIS WO CONon 05-12 CT ABD/PELVIS WO CON Begin Addendum #[address] Lund 3:25 PM EST 05/11/2022. Begin Addendum #2 IMPRESSION below should also contain the followin. 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 The [place] kidneys are progressively atrophic bilaterally compared to [...] of 06/14/2020 are no longer present. The [place] distal right ureter is decompressed beyond this [...] with surgical history for renal graft and [place] right urinary drainage, as a discrete ureteroneocystostomy is not identified, and the graft may be draining via a ureteroureterostomy. Urology consultation recommended. 3. The [place] kidneys are bilaterally atrophic, with right renal sinus calcifications consistent with nonobstructing right [place] renal calculi up to 6 mm. Normal [facility] CBC AUTO DIFFon 05-11-2022 BASO # 0.1 103/ul Normal 0.0-0.1 [facility] Comment on above: Performed By: #### U RTPCR #### [facility] [address] [place] [address] [address] Dwight Waters Basophils/100 WBC (Bld) 0.8 % Normal 0.2-2.0 [facility] Comment on above: Performed By: #### U RTPCR #### [facility] [address] [place] [address] [address] Dwight Waters EO # 0.2 103/ul Normal 0.0-0.7 [facility] Comment on above: Performed By: #### U RTPCR #### [facility] [address] [place] [address] [address] Dwight Waters Eosinophils/100 WBC (Bld) 2.5 % Normal 0.9-7.0 [facility] Comment on above: Performed By: #### U RTPCR #### [facility] [address] [address] [address] Dwight Waters Erythrocyte distribution width (RBC) [Ratio] 12.5 % Normal 11.0-15.0 [facility] Comment on above: Performed By: #### U RTPCR #### [facility] [address] [address] [address] Dwight Waters Hematocrit (Bld) [Volume fraction] 48.3 % Normal 42.0-54.0 [facility] Comment on above: Performed By: #### U RTPCR #### [facility] [address] [address] [address] Dwight Waters Hemoglobin (Bld) [Mass/Vol] 15.3 g/dL Normal 14.0-18.0 [facility] Comment on above: Performed By: #### U RTPCR #### [facility] [address] [place] [address] Dr. Dwight Waters IG # 0.01 10e3/ul Normal 0.00-0.03 [facility] Comment on above: Performed By: #### U RTPCR #### [facility] [address] [place] [address] Dr. Dwight Waters IG % 0.2 % Normal 0.0-0.5 [facility] Comment on above: Performed By: #### U RTPCR #### [facility] [address] [place] [address] Dr. Dwight Waters LYMPH # 1.9 103/ul Normal 1.2-3.8 [facility] Comment on above: Performed By: #### U RTPCR #### [facility] [address] [place] [address] Dr. Dwight Waters Lymphocytes/100 WBC (Bld) 29.8 % Normal 20.5-60.0 [facility] Comment on above: Performed By: #### U RTPCR #### [facility] [address] [place] [address] Dr. Dwight Waters MANUAL DIFF REQ NO Normal [facility] Comment on above: Performed By: #### U RTPCR #### [facility] [address] [place] [address] Dr. Dwight Waters MCH (RBC) [Entitic mass] 28.2 pg Normal 25.9-34.0 [facility] Comment on above: Performed By: #### U RTPCR #### [facility] [address] [place] [address] Dr. Dwight Waters MCHC (RBC) [Mass/Vol] 31.7 g/dL Normal 29.9-35.2 [facility] Comment on above: Performed By: #### U RTPCR #### [facility] [address] [place] [address] Dr. Dwight Waters MCV (RBC) [Entitic vol] 89.1 fL Normal 80.0-94.0 [facility] Comment on above: Performed By: #### U RTPCR #### [facility] [address] [place] [address] [address] Dwight Waters MONO # 0.6 103/ul Normal 0.3-0.8 [facility] Comment on above: Performed By: #### U RTPCR #### [facility] [address] [place] [address] [address] Dwight Waters Monocytes/100 WBC (Bld) 9.0 % Normal 1.7-12.0 [facility] Comment on above: Performed By: #### U RTPCR #### [facility] [address] [place] [address] [address] Dwight Waters NEUT # 3.6 103/ul Normal 1.4-6.5 [facility] Comment on above: Performed By: #### U RTPCR #### [facility] [address] [place] [address] Dr. Dwight Waters Neutrophils/100 WBC (Bld) 57.7 % Normal 43.0-75.0 [facility] Comment on above: Performed By: #### U RTPCR #### [facility] [address] [place] [address] Dr. Dwight Waters Platelet mean volume (Bld) [Entitic vol] 9.9 fL Normal 9.5-13.5 [facility] Comment on above: Performed By: #### U RTPCR #### [facility] [address] [place] [address] Dr. Dwight Waters PLT 249 103/ul Normal 150-450 [facility] Comment on above: Performed By: #### U RTPCR #### [facility] [address] [place] [address] Dr. Dwight Waters RBC 5.42 106/ul Normal 4.70-6.10 [facility] Comment on above: Performed By: #### U RTPCR #### [facility] [address] [place] [address] Dr. Dwight Waters WBC 6.3 103/ul Normal 4.0-11.0 [facility] Comment on above: Performed By: #### U RTPCR #### [facility] [address] [place] [address] Dr. Dwight Waters ER URINE PROFILEon 2 Bilirubin Ql (U) Unable to perform testing due to color interference. Abnormal NEGATIVE [facility] Comment on above: Performed By: #### U RTPCR #### [facility] [address] [place] [address] Dr. Dwight Waters Clarity (U) TURBID Abnormal CLEAR [facility] Comment on above: Performed By: #### U RTPCR #### [facility] [address] [place] [address] Dr. Dwight Waters Color (U) RED Abnormal YELLOW [facility] Comment on above: Performed By: #### U RTPCR #### [facility] [address] [place] [address] Dr. Dwight SHARMA A micrscopic examination will be performed if indicated. Normal [facility] Comment on above: Performed By: #### U RTPCR #### [facility] [address] [place] [address] Dr. Dwight Waters Glucose Ql (U) Unable to perform testing due to color interference. Abnormal NEGATIVE [facility] Comment on above: Performed By: #### U RTPCR #### [facility] [address] [place] [address] Dr. Dwight Waters Hemoglobin Ql (U) Unable to perform testing due to color interference. Abnormal NEGATIVE [facility] Comment on above: Performed By: #### U RTPCR #### [facility] [address] [place] [address] Dr. Dwight Waters Ketones Ql (U) Unable to perform testing due to color interference. Abnormal NEGATIVE [facility] Comment on above: Performed By: #### U RTPCR #### [facility] [address] [place] [address] Dr. Dwight Waters LEUKOCYTES Unable to perform testing due to color interference. Abnormal NEGATIVE [facility] Comment on above: Performed By: #### U RTPCR #### [facility] [address] [place] [address] Dr. Dwight Waters Nitrite Ql (U) Unable to perform testing due to color interference. Abnormal NEGATIVE [facility] Comment on above: Performed By: #### U RTPCR #### [facility] [address] [place] [address] Dr. Dwight Waters pH (U) 6.5 [pH] Normal 5-9 [facility] Comment on above: Performed By: #### U RTPCR #### [facility] [address] [place] [address] Dr. Dwight Waters SPEC GRAVITY 1.020 Normal 1.005-<=1.025 [facility] Comment on above: Performed By: #### U RTPCR #### [facility] [address] [place] [address] Dr. Dwight Waters UA PROTEIN Unable to perform testing due to color interference. Normal NEGATIVE/ TRACE [facility] Comment on above: Performed By: #### U RTPCR #### [facility] [address] [place] [address] Dr. Dwight Waters UR MICRO IND INDICATED Normal [facility] Comment on above: Performed By: #### U RTPCR #### [facility] [address] [place] [address] Dr. Dwight Waters UROBILINOGEN Unable to perform testing due to color interference. Normal 0.2 - 1.0 [facility] Comment on above: Performed By: #### U RTPCR #### [facility] [address] [place] [address] Dr. Dwight Waters PROF 14(COMP METB)on 022 Albumin [Mass/Vol] 3.8 g/dL Normal 3.4-5.0 [facility] Comment on above: Performed By: #### C MP #### [facility] [address] [place] [address] Dr. Dwight Waters Albumin/Globulin [Mass ratio] 1.1 {ratio} Normal [facility] Comment on above: Performed By: #### C MP #### [facility] [address] [place] [address] Dr. Dwight Waters ALP [Catalytic activity/Vol] 106 U/L Normal 46-116 [facility] Comment on above: Performed By: #### C MP #### [facility] [address] [address] [address] Dwight Waters ALT [Catalytic activity/Vol] 30 U/L Normal 16-63 [facility] Comment on above: Performed By: #### C MP #### [facility] [address] [address] [address] Dwight Waters Anion gap [Moles/Vol] 11.7 mmol/L Normal [facility] Comment on above: Performed By: #### C MP #### [facility] [address] [address] [address] Dwight Waters AST [Catalytic activity/Vol] 16 U/L Normal 15-37 [facility] Comment on above: Performed By: #### C MP #### [facility] [address] [place] [address] Dr. Dwight Waters Bilirubin [Mass/Vol] 0.6 mg/dL Normal 0.2-1.0 [facility] Comment on above: Performed By: #### C MP #### [facility] [address] [address] [address] Dwight Waters Calcium [Mass/Vol] 9.1 mg/dL Normal 8.5-10.1 [facility] Comment on above: Performed By: #### C MP #### [facility] [address] [address] [address] Dwight Waters CO2 [Moles/Vol] 27.4 mmol/L Normal 21.0-32.0 [facility] Comment on above: Performed By: #### C MP #### [facility] [address] [address] [address] Dwight Waters Creatinine [Mass/Vol] 1.18 mg/dL Normal 0.70-1.30 [facility] Comment on above: Performed By: #### C MP #### [facility] [address] [address] [address] Dwight Waters EGFR-AF RUSSIAN >60 Normal >=60 [facility] Comment on above: Performed By: #### C MP #### [facility] [address] [address] [address] Dwight Waters EGFR-NON AF RUSSIAN >60 Normal >=60 [facility] Comment on above: Performed By: #### C MP #### [facility] [address] [address] [address] Dwight Waters Globulin (S) [Mass/Vol] 3.6 g/dL Normal [facility] Comment on above: Performed By: #### C MP #### [facility] [address] [address] [address] Dwight Waters Glucose [Mass/Vol] 192 mg/dL Critically high 74-106 [facility] Comment on above: Performed By: #### C MP #### [facility] [address] [place] [address] Dr. Dwight Waters Potassium [Moles/Vol] 4.1 mmol/L Normal 3.5-5.1 [facility] Comment on above: Performed By: #### C MP #### [facility] [address] [place] [address] Dr. Dwight Waters Protein [Mass/Vol] 7.4 g/dL Normal 6.4-8.2 [facility] Comment on above: Performed By: #### C MP #### [facility] [address] [place] [address] Dr. Dwight Waters Sodium [Moles/Vol] 142 mmol/L Normal 136-145 [facility] Comment on above: Performed By: #### C MP #### [facility] [address] [place] [address] Dr. Dwight Waters Urea nitrogen [Mass/Vol] 17.0 mg/dL Normal 7.0-18.0 [facility] Comment on above: Performed By: #### C MP #### [facility] [address] [place] [address] Dr. Dwight Waters Urea nitrogen/Creatinine [Mass ratio] 14.4 mg/mg Normal [facility] Comment on above: Performed By: #### C MP #### [facility] [address] [place] [address] Dr. Dwight Waters URINE MICROSCOPIC ONLYon BACTERIA NONE SEEN Normal NONE SEEN [facility] Comment on above: Performed By: #### U RTPCR #### [facility] [address] [place] [address] Dr. Dwight Waters Bacteria identified Cx Nom (U) NOT INDICATED Normal [facility] Comment on above: Performed By: #### U RTPCR #### [facility] [address] [place] [address] Dr. Dwight Waters CAST NONE SEEN Normal NONE SEEN [facility] Comment on above: Performed By: #### U RTPCR #### [facility] [address] [place] [address] Dr. Dwight Waters Crystals LM Nom (Urine sed) NONE SEEN Normal NONE SEEN [facility] Comment on above: Performed By: #### U RTPCR #### [facility] [address] [place] [address] Dr. Dwight Waters Epithelial cells LM Ql (Urine sed) RARE Normal NONE SEEN /RARE [facility] Comment on above: Performed By: #### U RTPCR #### [facility] [address] [place] [address] Dr. Dwight Waters MUCOUS NONE SEEN Normal NONE SEEN [facility] Comment on above: Performed By: #### U RTPCR #### [facility] [address] [place] [address] Dr. Dwight Waters RBC (U) [#/Vol] /uL Abnormal 0-2 [facility] Comment on above: Performed By: #### U RTPCR #### [facility] [address] [place] [address] Dr. Dwight Waters WBC NONE SEEN Normal NONE SEEN [facility] Comment on above: Performed By: #### U RTPCR #### [facility] [address] [place] [address] Dr. Dwight Waters K (Potassium)on 01-06-2020 Potassium [Moles/Vol] 4.4 mmol/L Normal 3.7-5.3 [facility] Comment on above: Performed By: #### K #### [facility] [address] [place] [address] [employer]eller Se[employer] Operator: Kehinde Woodward MD Potassiumon 01-06-2020 Potassium [Moles/Vol] 4.4 mmol/L 3.7 - 5.3 mmol/L [facility] Work Phone: Hemoglobin and Hematocrit, B loodon 10-24-2019 Hematocrit (Bld) [Volume fraction] 23.6 % Low 40.7 - 50.3 % [place], [place] Hemoglobin (Bld) [Mass/Vol] 7.3 g/dL Low 13 - 17 g/dL [place] Interpretation and review of laboratory results Abnormal [place] Hgb/Hcton 10-24-2019 Hematocrit (Bld) [Volume fraction] 23.6 % Low 40.7-50.3 [facility] Comment on above: Performed By: #### H H #### [facility] [address] [place] [address] Dr. [place] [id number] [employer] Se[employer] Operator: Kehinde Woodward MD Hemoglobin (Bld) [Mass/Vol] 7.3 g/dL Low 13.0-17.0 [facility] Comment on above: Performed By: #### H H #### [address] [place], [place] [id number] [employer]eller Se[employer] Operator: Kehinde Woodward MD Hemoglobinon 08-27-2019 Hemoglobin (Bld) [Mass/Vol] 7.5 g/dL Low 13.0-17.0 [facility] Comment on above: Performed By: #### H GB #### [facility] [address] [place] [address] [place], [place] [address] [employer]eller Seam Operator: Kehinde Woodward MD Hemoglobin (Bld) [Mass/Vol] 7.5 g/dL Low 13 - 17 g/dL [place] Interpretation and review of laboratory results Abnormal [place] Hemoglobinon 08-08-2019 Hemoglobin (Bld) [Mass/Vol] 8.3 g/dL Low 13.0-17.0 [facility] Comment on above: Performed By: #### H GB #### [facility] [address] [place], [place] [address] [employer]eller Se[employer] Operator: Kehinde Woodward MD Hemoglobin (Bld) [Mass/Vol] 8.3 g/dL Low 13 - 17 g/dL [place] Interpretation and review of laboratory results Abnormal [place] Hemoglobinon 08-04-2019 Hemoglobin (Bld) [Mass/Vol] 8.0 g/dL Low 13.0-17.0 [facility] Comment on above: Performed By: #### H GB #### [facility] [address] [place], [place] [address] [employer] Seam Operator: Kehinde Woodward MD Hemoglobin A1Con 08-03-2019 HbA1c (Bld) [Mass fraction] % Low 4.8-5.9 [facility] Comment on above: Result Comment: The ADA and AACC recommend providing the estimated average glucose result to permit better patient understanding of their HBA1c result. Performed By: #### G LYHGB #### [facility] [address] [place], [place] [address] [employer]eller Se[employer] Operator: Kehinde Woodward MD Glucose [Mass/Vol] mg/dL mg/dL [place], [place] Comment on above: The ADA and AACC rec ommend providing the estimated average glucose result to permit better patient understanding of their HBA1c result. HbA1c (Bld) [Mass fraction] % Low 4.8 - 5.9 % [place] Interpretation and review of laboratory results Abnormal [place] Hemoglobinon 08-01-2019 Hemoglobin (Bld) [Mass/Vol] 8.1 g/dL Low 13.0-17.0 [facility] Comment on above: Performed By: #### H GB #### [facility] [address] [place], [place] [address] [employer]eller Seam Operator: Kehinde Woodward MD Hemoglobin (Bld) [Mass/Vol] 8.1 g/dL Low 13 - 17 g/dL [place] Interpretation and review of laboratory results Abnormal [facility] [place] Hgb/Hcton 06-10-2019 Hematocrit (Bld) [Volume fraction] 24.3 % Low 40.7-50.3 [facility] Comment on above: Performed By: #### H H #### [facility] [address] [place] [id number] [employer] Se[employer] Operator: Kehinde Woodward MD Hemoglobin (Bld) [Mass/Vol] 7.4 g/dL Low 13.0-17.0 [facility] Comment on above: Performed By: #### H H #### [facility] [address] [place] [address] Feller Seam Operator: Kehinde Woodward MD Hemoglobinon 06-01-2019 Hemoglobin (Bld) [Mass/Vol] 7.2 g/dL Low 13.0-17.0 [facility] Comment on above: Performed By: #### H GB #### [facility] [address] [place] [id number] [employer]eller Se[employer] Operator: Kehinde Woodward MD K (Potassium)on 01-14-2019 Potassium [Moles/Vol] 3.6 mmol/L Low 3.7-5.3 [facility] Comment on above: Performed By: #### K #### [facility] [address] [place], [place] [id number] [employer]eller Seam Operator: Kehinde Woodward MD Otheron 10-19-2018 IMPRESSION: [...] will follow. Invalid Interpretation [facility] Comment on above: This Liquid Chromato graphy Mass Spectrometry (LC/MS/MS) test was developed and its performance characteristics determined by Toxicology Laboratory at [facility]. It has not been cleared or approved [...] Amitriptyline(50), Amphetamine(250), Atenolol(500), Barbiturates(1000), Benzoylecgonine(50), Buprenorphine(50), Bupropion(25), Caffeine(99442), Chlordiazepoxide(50), Chlorpheniramine(100), Chlorpromazine(50), Citalopram(100), Clonazepam(200), Cocaine(25), Codeine(200), [...] method NONE DETECTED Invalid Interpretation Code MISSY, [facility] TOXICOLOGY SCREEN URINE - [facility] 10-12-2018 Drugs identified Screen Nom (U) For Medical Purposes Only, Non-forensic, screen results are presumptive. No confirmatory testing will follow. Invalid Interpretation Code LAB, [facility] Comment on above: This Liquid Chromato graphy Mass Spectrometry (LC/MS/MS) test was developed and its performance characteristics determined by Toxicology Laboratory at [facility]. It has not been cleared or approved [...] Amitriptyline(50), Amphetamine(250), Atenolol(500), Barbiturates(200), Benzoylecgonine(50), Buprenorphine(500), Bupropion(25), Caffeine(13795), Cannabinoids(THC)(50), Chlordiazepoxide(50), Chlorpheniramine(100), Chlorpromazine(50), Citalopram(100), Clonazepam(200), Cocaine(25), [...] Blood Pressure Location Clementina Montesinos [facility] 09-08-2024 13:40-0400 Diastolic blood pressure 90 mm[Hg] Clementina Montesinos [facility] 09-08-2024 13:40-0400 Heart rate 66 /min Clementina Montesinos [facility] 09-08-2024 13:40-0400 Systolic blood pressure 144 mm[Hg] Clementina Montesinos [facility] 06-17-2024 08:37-0400 Body mass index (BMI) [Ratio] 29.43 kg/m2 Rebeca Gutierrez HYDROGEN CELL TENDER-BATCH AND FURNACE OPERATOR Work Phone: [facility] 06-17-2024 08:37-0400 Body temperature 97.39 [degF] Rebeca Gutierrez HYDROGEN CELL TENDER-BATCH AND FURNACE OPERATOR Work Phone: [facility] 06-17-2024 08:37-0400 Body weight 85.23 kg Rebeca Gutierrez HYDROGEN CELL TENDER-BATCH AND FURNACE OPERATOR Work Phone: [facility] 06-17-2024 08:37-0400 Diastolic blood pressure 75 mm[Hg] Rebeca Gutierrez HYDROGEN CELL TENDER-BATCH AND FURNACE OPERATOR Work Phone: [facility] 06-17-2024 08:37-0400 Heart rate 53 /min Rebeca Gutierrez HYDROGEN CELL TENDER-BATCH AND FURNACE OPERATOR Work Phone: [facility] 06-17-2024 08:37-0400 Systolic blood pressure 143 mm[Hg] Rebeca Gutierrez HYDROGEN CELL TENDER-BATCH AND FURNACE OPERATOR Work Phone: [facility] 06-17-2024 08:36-0400 Body mass index (BMI) [Ratio] 29.43 kg/m2 Daisha Sobotka DO Work Phone: [facility] 06-17-2024 08:36-0400 Body temperature 97.39 [degF] Daisha Sobotka DO Work Phone: [facility] 06-17-2024 08:36-0400 Body weight 85.23 kg Daisha Sobotka DO Work Phone: [facility] 06-17-2024 08:36-0400 Diastolic blood pressure 75 mm[Hg] Daisha Sobotka DO Work Phone: [facility] 06-17-2024 08:36-0400 Heart rate 53 /min Daisha Sobotka DO Work Phone: [facility] 06-17-2024 08:36-0400 Systolic blood pressure 143 mm[Hg] Daisha Max DO Work Phone: [facility] 02-26-2024 09:07-0400 Diastolic blood pressure 56 mm[Hg] Candie Almaguer MD Work Phone: [facility] 02-26-2024 09:07-0400 Heart rate 65 /min Candie Almaguer MD Work Phone: [facility] 02-26-2024 09:07-0400 Systolic blood pressure 113 mm[Hg] Candie Almaguer MD Work Phone: [facility] 02-26-2024 09:06-0400 Body height 170.2 cm Candie Almaguer MD Work Phone: [facility] 02-26-2024 09:06-0400 Body mass index (BMI) [Ratio] 28.9 kg/m2 Candie Almaguer MD Work Phone: [facility] 02-26-2024 09:06-0400 Body weight 83.69 kg Candie Almaguer MD Work Phone: [facility] 02-26-2024 09:06-0400 Respiratory rate 20 /min Candie Almaguer MD Work Phone: [facility] 02-26-2024 09:06-0400 SaO2% (BldA) [Mass fraction] 97 % Candie Almaguer MD Work Phone: [facility] 01-23-2024 15:04-0500 Body temperature 97.9 [degF] Kevin Prince MD Work Phone: [facility] 01-23-2024 15:04-0500 Diastolic blood pressure 67 mm[Hg] Kevin Prince MD Work Phone: [facility] 01-23-2024 15:04-0500 Heart rate 51 /min Kevin Prince MD Work Phone: [facility] 01-23-2024 15:04-0500 Respiratory rate 16 /min Kevin Prince MD Work Phone: [facility] 01-23-2024 15:04-0500 SaO2% (BldA) [Mass fraction] 94 % Kevin Prince MD Work Phone: [facility] 01-23-2024 15:04-0500 Systolic blood pressure 151 mm[Hg] Kevin Prince MD Work Phone: [facility] 01-23-2024 10:46-0500 Body mass index (BMI) [Ratio] 30.94 kg/m2 Kevin Prince MD Work Phone: [facility] 01-23-2024 10:46-0500 Body weight 89.6 kg Kevin Prince MD Work Phone: [facility] 01-18-2024 11:21-0500 Body height 170.2 cm Kevin Prince MD Work Phone: [facility] 01-06-2024 09:04-0500 Body height 170.2 cm Zuly Bruno BONDED STRAND OPERATOR Work Phone: [facility] 01-06-2024 09:04-0500 Body mass index (BMI) [Ratio] 32.42 kg/m2 Zuly Bruno BONDED STRAND OPERATOR Work Phone: [facility] 01-06-2024 09:04-0500 Body temperature 97.81 [degF] Zuly Bruno BONDED STRAND OPERATOR Work Phone: [facility] 01-06-2024 09:04-0500 Body weight 93.89 kg Zuly Bruno BONDED STRAND OPERATOR Work Phone: [facility] 01-06-2024 09:04-0500 Diastolic blood pressure 70 mm[Hg] Zuly Bruno BONDED STRAND OPERATOR Work Phone: [facility] 01-06-2024 09:04-0500 Heart rate 95 /min Zuly Bruno BONDED STRAND OPERATOR Work Phone: [facility] 01-06-2024 09:04-0500 Respiratory rate 17 /min Zuly Bruno BONDED STRAND OPERATOR Work Phone: [facility] 01-06-2024 09:04-0500 SaO2% (BldA) [Mass fraction] 99 % Zuly Bruno BONDED STRAND OPERATOR Work Phone: [facility] 01-06-2024 09:04-0500 Systolic blood pressure 138 mm[Hg] Zuly Annz BONDED STRAND OPERATOR Work Phone: [facility] 09-11-2023 10:31-0400 Body temperature 97.81 [degF] Steve Tammy MBBS Work Phone: [facility] 09-11-2023 10:31-0400 Diastolic blood pressure 66 mm[Hg] Steve Tammy MBBS Work Phone: [facility] 09-11-2023 10:31-0400 Heart rate 70 /min Steve Tammy MBBS Work Phone: [facility] 09-11-2023 10:31-0400 Respiratory rate 20 /min Steve Tammy MBBS Work Phone: [facility] 09-11-2023 10:31-0400 SaO2% (BldA) [Mass fraction] 91 % Steve Tammy MBBS Work Phone: [facility] 09-11-2023 10:31-0400 Systolic blood pressure 129 mm[Hg] Steve Tammy MBBS Work Phone: [facility] 09-10-2023 15:50-0400 Body mass index (BMI) [Ratio] 31.99 kg/m2 Steve Tammy MBBS Work Phone: [facility] 09-10-2023 15:50-0400 Body weight 92.67 kg Steve Atmmy MBBS Work Phone: [facility] 09-02-2023 07:32-0400 Body height 170.2 cm Steve Tamym MBBS Work Phone: [facility] 08-28-2023 13:33-0400 Body height 170.2 cm Steve Tammy MBBS Work Phone: [facility] 08-28-2023 13:33-0400 Body mass index (BMI) [Ratio] 32.12 kg/m2 Steve Tammy MBBS Work Phone: [facility] 08-28-2023 13:33-0400 Body temperature 97.3 [degF] Steve Tammy MBBS Work Phone: [facility] 08-28-2023 13:33-0400 Body weight 93.03 kg Steve Tammy MBBS Work Phone: [facility] 08-28-2023 13:33-0400 Diastolic blood pressure 41 mm[Hg] Steve Tammy MBBS Work Phone: [facility] 08-28-2023 13:33-0400 Heart rate 116 /min Steve Tammy MBBS Work Phone: [facility] 08-28-2023 13:33-0400 Systolic blood pressure 106 mm[Hg] Steve Tammy MBBS Work Phone: [facility] 06-12-2023 14:50-0400 Body mass index (BMI) [Ratio] 33.8 kg/m2 Rebeca Gutierrez APRN-ROB Work Phone: [facility] 06-12-2023 14:50-0400 Body temperature 97.3 [degF] Rebeca Gutierrez HYDROGEN CELL TENDER-BATCH AND FURNACE OPERATOR Work Phone: [facility] 06-12-2023 14:50-0400 Body weight 97.89 kg Rebeca Gutierrez HYDROGEN CELL TENDER-BATCH AND FURNACE OPERATOR Work Phone: [facility] 06-12-2023 14:50-0400 Diastolic blood pressure 77 mm[Hg] Rebeca Gutierrez HYDROGEN CELL TENDER-BATCH AND FURNACE OPERATOR Work Phone: [facility] 06-12-2023 14:50-0400 Heart rate 76 /min Rebeca Gutierrez HYDROGEN CELL TENDER-BATCH AND FURNACE OPERATOR Work Phone: [facility] 06-12-2023 14:50-0400 Systolic blood pressure 146 mm[Hg] Rebeca Gutierrez HYDROGEN CELL TENDER-BATCH AND FURNACE OPERATOR Work Phone: [facility] 01-16-2023 08:57-0500 Body height 170.2 cm [facility] Work Phone: [facility] 01-16-2023 08:57-0500 Body mass index (BMI) [Ratio] 33.66 kg/m2 [facility] Work Phone: [facility] 01-16-2023 08:57-0500 Body temperature 97.3 [degF] [facility] Work Phone: [facility] 01-16-2023 08:57-0500 Body weight 97.48 kg [facility] Work Phone: [facility] 01-16-2023 08:57-0500 Diastolic blood pressure 75 mm[Hg] [facility] Work Phone: [facility] 01-16-2023 08:57-0500 Heart rate 76 /min [facility] Work Phone: [facility] 01-16-2023 08:57-0500 Systolic blood pressure 142 mm[Hg] [facility] Work Phone: [facility] 09-10-2022 09:38-0400 Body height 170.2 cm Ryan Yepez MD Work Phone: [facility] 09-10-2022 09:38-0400 Body mass index (BMI) [Ratio] 33.67 kg/m2 Ryan Yepez MD Work Phone: [facility] 09-10-2022 09:38-0400 Body weight 97.52 kg Ryan Yepez MD Work Phone: [facility] 09-10-2022 09:38-0400 Diastolic blood pressure 83 mm[Hg] Ryan Yepez MD Work Phone: [phone] [place] [address] 09-10-2022 09:38-0400 Heart rate 64 /min Ryan Yepez MD Work Phone: [facility] 09-10-2022 09:38-0400 SaO2% (BldA) [Mass fraction] 96 % Ryan Yepez MD Work Phone: [facility] 09-10-2022 09:38-0400 Systolic blood pressure 129 mm[Hg] Ryan Yepez MD Work Phone: [facility] 07-07-2022 13:48-0400 Diastolic blood pressure 76 mm[Hg] Ryan Yepez MD Work Phone: [facility] 07-07-2022 13:48-0400 Heart rate 82 /min Ryan Yepez MD Work Phone: [facility] 07-07-2022 13:48-0400 SaO2% (BldA) [Mass fraction] 96 % Ryan Yepez MD Work Phone: [facility] 07-07-2022 13:48-0400 Systolic blood pressure 141 mm[Hg] Ryan Yepez MD Work Phone: [facility] 06-27-2022 13:32-0400 Body height 170.2 cm Ryan Yepez MD Work Phone: [facility] 06-27-2022 13:32-0400 Body mass index (BMI) [Ratio] 34.24 kg/m2 Ryan Yepez MD Work Phone: [facility] 06-27-2022 13:32-0400 Body temperature 98.6 [degF] Ryan Yepez MD Work Phone: [facility] 06-27-2022 13:32-0400 Body weight 99.16 kg Ryan Yepez MD Work Phone: [facility] 06-27-2022 13:32-0400 Diastolic blood pressure 78 mm[Hg] Ryan Yepez MD Work Phone: [facility] 06-27-2022 13:32-0400 Heart rate 77 /min Ryan Yepez MD Work Phone: [facility] 06-27-2022 13:32-0400 SaO2% (BldA) [Mass fraction] 95 % Ryan Yepez MD Work Phone: [facility] 06-27-2022 13:32-0400 Systolic blood pressure 121 mm[Hg] Ryan Yepez MD Work Phone: [facility] 06-27-2022 10:52-0400 Body height 170.2 cm Rena Brewster RN [facility] 06-27-2022 10:52-0400 Body mass index (BMI) [Ratio] 34.46 kg/m2 Rena Brewster RN [facility] 06-27-2022 10:52-0400 Body temperature 98.2 [degF] Rena Brewster RN [facility] 06-27-2022 10:52-0400 Body weight 99.79 kg Rena Brewster RN [facility] 06-27-2022 10:52-0400 Diastolic blood pressure 73 mm[Hg] Rena Brewster RN [facility] 06-27-2022 10:52-0400 Heart rate 78 /min Rena Brewster RN [facility] 06-27-2022 10:52-0400 Respiratory rate 20 /min Rena Brewster RN [facility] 06-27-2022 10:52-0400 SaO2% (BldA) [Mass fraction] 97 % Rena Brewster RN [facility] 06-27-2022 10:52-0400 Systolic blood pressure 135 mm[Hg] Rena Brewster RN [facility] 06-12-2022 14:23-0400 Body mass index (BMI) [Ratio] 34.59 kg/m2 Steve Tammy MBBS Work Phone: [facility] 06-12-2022 14:23-0400 Body temperature 97 [degF] Steve Tammy MBBS Work Phone: [facility] 06-12-2022 14:23-0400 Body weight 100.2 kg Steve Tammy MBBS Work Phone: [facility] 06-12-2022 14:23-0400 Diastolic blood pressure 66 mm[Hg] Steve Tammy MBBS Work Phone: [facility] 06-12-2022 14:23-0400 Heart rate 63 /min Steve Tammy MBBS Work Phone: [facility] 06-12-2022 14:23-0400 Systolic blood pressure 133 mm[Hg] Steve Tammy MBBS Work Phone: [facility] 05-20-2022 15:21-0400 Body temperature 97.9 [degF] Gian Villatoro MD Work Phone: [facility] 05-20-2022 15:21-0400 Diastolic blood pressure 64 mm[Hg] Gian Villatoro MD Work Phone: [facility] 05-20-2022 15:21-0400 Heart rate 55 /min Gian Villatoro MD Work Phone: [facility] 05-20-2022 15:21-0400 Respiratory rate 15 /min Gian Villatoro MD Work Phone: [facility] 05-20-2022 15:21-0400 SaO2% (BldA) [Mass fraction] 95 % Gian Villatoro MD Work Phone: [facility] 05-20-2022 15:21-0400 Systolic blood pressure 145 mm[Hg] Gian Villatoro MD Work Phone: [facility] 05-19-2022 12:15-0400 Body mass index (BMI) [Ratio] 35.87 kg/m2 Gian Villatoro MD Work Phone: [facility] 05-19-2022 12:15-0400 Body weight 103.92 kg Gian Villatoro MD Work Phone: [facility] Comment on above: standing scale 05-16-2022 16:19-0400 Body height 170.2 cm Gian Villatoro MD Work Phone: [facility] 10-19-2018 08:44-0500 BMI (Body Mass Index) 26.58 kg/m2 [facility] Work Phone: 10-19-2018 08:44-0500 BP Diastolic 76 mm[Hg] [facility] Work Phone: 10-19-2018 08:44-0500 BP Systolic 144 mm[Hg] [facility] Work Phone: 10-19-2018 08:44-0500 Height 172.7 cm [facility] Work Phone: 10-19-2018 08:44-0500 Pulse (Heart Rate) 92 /min [facility] Work Phone: 10-19-2018 08:44-0500 Pulse Oximetry 99 % [facility] Work Phone: 10-19-2018 08:44-0500 Respiratory Rate 16 /min [facility] Work Phone: 10-19-2018 08:44-0500 Weight 79.29 kg [facility] Work Phone: 10-12-2018 09:50-0500 BMI (Body Mass Index) 27.24 kg/m2 [facility] Work Phone: 10-12-2018 09:50-0500 Body Temperature 98.6 [degF] [facility] Work Phone: 10-12-2018 09:50-0500 BP Diastolic 80 mm[Hg] [facility] Work Phone: 10-12-2018 09:50-0500 BP Systolic 157 mm[Hg] [facility] Work Phone: 10-12-2018 09:50-0500 Height 169.5 cm [facility] Work Phone: 10-12-2018 09:50-0500 Pulse (Heart Rate) 94 /min [facility] Work Phone: 10-12-2018 09:50-0500 Weight 78.29 kg Alfredito ramonaseadriftkatarzyna [facility] Work Phone: Encounters Encounter Date Encounter Type Care Provider Facility Start: 11-22-2024 ambulatory Steph Almodovar Facilit y:[facility] Start: 09-13-2024 End: 09-13-2024 Clinisync Result Encounter Generic External Data Provider [facility] External Department Unsolicited Start: 09-13-2024 End: 09-13-2024 Clinisync Result Encounter Generic External Data Provider [facility] External Department Unsolicited Start: 09-08-2024 End: 09-08-2024 ambulatory ZULY BRUNO Facility: [facility] Start: 09-08-2024 End: 09-08-2024 Patient encounter procedure Clementina Magalie Montesinos [facility] Start: 09-07-2024 ambulatory ZULY BRUNO Facility: [facility] Start: 09-05-2024 End: 09-05-2024 ambulatory Angel Fete RPh,PharmD [facility] [place] Start: 09-05-2024 End: 09-05-2024 Patient encounter procedure Angel Calee RPh,PharmD [facility] [place] Start: 08-24-2024 ambulatory Steph Almodovar Facility: [facility] Start: 08-23-2024 End: 08-23-2024 ambulatory ZULY BRUNO Not Available Start: 06-23-2024 End: 06-23-2024 ambulatory Meka Munoz [facility] Start: 06-23-2024 End: 06-23-2024 Patient encounter procedure Meka Munoz [facility] [place] Start: 06-17-2024 End: 06-17-2024 Office outpatient visit 25 minutes Daisha Max DO Work Phone: [facility] Comment on above: Liver lesion (Primar y Dx); Liver transplant recipient; High risk medication use; Therapeutic drug monitoring; 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) Start: 06-17-2024 ambulatory DAISHA MAX Facil ity:[facility] Start: 05-26-2024 End: 05-26-2024 ambulatory Evan Bolton RP,PharmD [facility] Start: 05-26-2024 End: 05-26-2024 Patient encounter procedure Evan Bolton RP,PharmD [facility] [place] Start: 05-13-2024 End: 05-13-2024 ambulatory [facility] Start: 04-18-2024 End: 04-18-2024 ambulatory ZULY BRUNO Not Available Start: 03-24-2024 End: 03-24-2024 Patient encounter procedure Angel Carpio [facility],PharmD [facility] Start: 03-24-2024 End: 03-24-2024 ambulatory Angel Carpio RP,PharmD [facility] [place] Start: 03-22-2024 End: 03-22-2024 ambulatory JOHNNA BRINK Not Available Start: 03-17-2024 End: 03-17-2024 ambulatory JOHNNA BRINK Not Available Start: 03-14-2024 End: 03-14-2024 ambulatory FIDELINA SANCHEZ Not Available Start: 03-10-2024 End: 03-10-2024 ambulatory JOHNNA BRINK Not Available Start: 03-08-2024 End: 03-08-2024 ambulatory JOHNNA BRINK Not Available Start: 03-03-2024 End: 03-03-2024 ambulatory JOHNNA BRINK Not Available Start: 03-02-2024 End: 03-02-2024 ambulatory Meka Munoz [facility] Start: 03-02-2024 End: 03-02-2024 Patient encounter procedure Meka Munoz [facility] Start: 03-01-2024 ambulatory ZULY BRUNO Facility: [facility] Start: 03-01-2024 End: 03-01-2024 ambulatory JOHNNA HOLLIDAY Not Available Start: 02-26-2024 ambulatory CANDIE ALMAGUER Facility: [facility] Start: 02-26-2024 End: 02-26-2024 Office outpatient new 30 minutes Candie Almaguer MD Work Phone: [facility] Comment on above: Heart failure, diast olic, acute (Primary Dx) Start: 02-26-2024 ambulatory KELVIN Angel BENTONTARA Facility: [facility] Start: 02-25-2024 End: 02-25-2024 ambulatory FIDELINA SANCHEZ Not Available Start: 02-23-2024 End: 02-23-2024 ambulatory PALMA PALACIOS Not Available Start: 02-11-2024 Patient encounter procedure Generic Provider [facility] Start: 02-11-2024 End: 02-11-2024 ambulatory ZULY BRUNO Not Available Start: 01-16-2024 End: 01-23-2024 Encounter for other preprocedural examination KELVIN PACHECO Facility:[facility] Start: 01-16-2024 End: 01-23-2024 Evaluation and management of inpatient Kevin Prince MD Work Phone: [id number] Comment on above: Pleural effusion on right Start: 01-16-2024 End: 01-23-2024 Patient encounter status Kevin Prince MD Work Phone: [facility] Work Phone: Start: 01-12-2024 End: 01-12-2024 ambulatory Angel Fete RPh,PharmD [facility] Start: 01-12-2024 End: 01-12-2024 Patient encounter procedure Angel Fete RPh,PharmD [facility] [place] Start: 01-08-2024 Clinisync Result Encounter Generic External Data Provider [facility] External Department Unsolicited Start: 01-08-2024 Clinisync Result Encounter Generic External Data Provider [facility] External Department Unsolicited Start: 01-06-2024 End: 01-06-2024 Office outpatient visit 25 minutes Zuly Bruno BONDED STRAND OPERATOR Work Phone: [facility] Comment on above: Bilateral lower extr emity edema (Primary Dx); 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); Atherosclerosis 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); Obesity (BMI 30-39.9); DARLENE (obstructive sleep apnea); Tremor; Immunocompromised (CMS/HCC); Primary hypertension ([facility]); Shortness of breath Start: 01-06-2024 End: 01-06-2024 ambulatory ZULY KRISTOPHERHHOLZ Not Available Start: 01-01-2024 Clinisync Result Encounter Generic External Data Provider [facility] External Department Unsolicited Start: 01-01-2024 Clinisync Result Encounter Generic External Data Provider [facility] External Department Unsolicited Start: 11-03-2023 End: 11-03-2023 ambulatory ZULY FLORESLATISHAZ Not Available Start: 10-06-2023 ambulatory Angel Madsene [facility],PharmD [facility] [place] Start: 10-06-2023 Patient encounter procedure Angel Carpio [facility],PharmD [facility] Start: 09-29-2023 ambulatory ZULY KIANA Facility: [facility] Start: 09-23-2023 [facility] Start: 09-15-[address] [facility] Facility: [facility] Start: 08-28-2023 End: 09-11-2023 [...] disorders Start: 08-19-2023 ambulatory Meka rueda [facility] Start: 08-19-2023 Patient encounter procedure Meka Munoz [facility] [place] Start: 06-12-2023 End: 06-12-2023 Office outpatient visit 25 minutes Steve LEIGH Work Phone: [facility] Comment on above: 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) Start: 06-10-2023 ambulatory Maren Bar RPh,PharmD [facility] [place] Start: 06-10-2023 Patient encounter procedure Maren Bar RPh,PharmD [facility] Start: 04-28-2023 End: 04-29-[address] DOCTOR EVANS Facility:[facility] Start: 03-12-2023 ambulatory Angel Fete RPh,PharmD [facility] [place] Start: 03-12-2023 Patient encounter procedure Angel Fete RPh,PharmD [facility] [place] Start: 03-10-2023 ambulatory Angel Fete RPh,PharmD [facility] [place] Start: 03-10-2023 Patient encounter procedure Angel Fete RPh,PharmD [facility] [place] Start: 03-02-2023 End: 03-03-[address] DOCTOR EVANS Facility:[facility] Start: 01-16-2023 End: 01-16-2023 Office outpatient visit 25 minutes Daisha Max DO Work Phone: [facility] Comment on above: Abnormal blood chemi [...] MD Work Phone: [facility] Comment on above: BPH with obstruction /lower urinary tract symptoms (Primary Dx); Encounter for screening for malignant neoplasm of prostate Start: 08-28-2022 End: 08-29-2022 ambulatory ROB BRUNO Facility:[facility] Start: 08-14-2022 End: 08-15-[address] DOCTOR EVANS Facility:[facility] Start: 07-07-2022 End: 07-07-2022 Patient encounter procedure Ryan Yepez MD Work Phone: [facility] [place] Comment on above: Other hydronephrosis (Primary Dx); [...] MD Work Phone: [facility] [place] Comment on above: Other hydronephrosis (Primary Dx) [...] GEORGE LAWRENCE Facility: Start: 03-14-2022 ambulatory Comfort Che Miguel [facility] Work Phone: [facility] [place] Start: 03-14-2022 Patient encounter procedure Comfort Rivera [facility] Work Phone: [facility] [place] Start: 06-14-2021 End: 06-14-2021 ambulatory Comfort Rivera [facility] Work Phone: [facility] Start: 06-14-2021 Patient encounter procedure Comfort Rivera [facility] Work Phone: [facility] Start: 01-20-2020 End: 01-27-2020 Patient encounter procedure PEPE CASE Facility:[facility] Start: 01-06-2020 End: 01-07-2020 Patient encounter procedure [facility] Start: 01-06-2020 End: 01-06-2020 Subsequent hospital visit by physician [facility] Start: 10-24-2019 End: 10-25-2019 Patient encounter procedure TANAMINAL CAMPA [facility] Start: 10-24-2019 End: 10-24-2019 Subsequent hospital visit by physician [facility] Start: 08-27-2019 End: 08-28-2019 Patient encounter procedure [facility] Start: 08-27-2019 End: 08-27-2019 Subsequent hospital visit by physician [facility] Start: 08-08-2019 End: 08-09-2019 Patient encounter procedure ROB PATINO [facility] Start: 08-08-2019 End: 08-08-2019 Subsequent hospital visit by physician [facility] Start: 08-03-2019 End: 08-04-2019 [facility] Start: 08-03-2019 End: 08-03-2019 Subsequent hospital visit by physician [facility] Start: 08-01-2019 End: 08-02-2019 [facility] Start: 08-01-2019 End: 08-01-2019 Subsequent hospital visit by physician [facility] Start: 06-10-2019 End: 06-11-2019 Patient encounter procedure RENA GUDINO [facility] Start: 06-01-2019 End: 06-02-2019 Patient encounter procedure RENA GUDINO [facility] Start: 01-14-2019 End: 01-15-2019 [facility] Start: 11-17-2018 End: 11-17-2018 Patient encounter procedure Fidelina Pantojaman [facility] Comment on above: Social Work Follow-u p Start: 10-19-2018 End: 10-19-2018 Patient encounter [facility] Comment on above: Cirrhosis of liver w ithout ascites, unspecified hepatic cirrhosis type (Primary Dx) Start: 10-19-2018 End: 10-19-2018 Office outpatient visit 25 minutes Christin Elizabeth Work Phone: Division of G[facility]enterology [facility] Hepat[facility] [place] Comment on above: Alcoholic cirrhosis of liver without ascites (Primary Dx); Pre-transplant evaluation for liver transplant; Hepatic encephalopathy Start: 10-13-2018 End: 10-13-2018 Patient encounter procedure [facility] Comment on above: Reschedule Outside Medical Allan rds Request Start: 10-12-2018 End: 10-12-2018 Patient encounter procedure Sophie Cary [facility] Comment on above: Alcoholic cirrhosis, unspecified whether ascites present (Primary Dx); Pre-transplant evaluation for liver transplant Start: 10-12-2018 End: 10-12-2018 Office outpatient new 60 minutes Alfredito Restrepo Work Phone: [facility] Comment on above: Alcoholic cirrhosis, unspecified whether ascites present; ESRD (end stage renal disease) on dialysis; Pre-transplant evaluation for liver transplant Start: 10-06-2018 End: 10-06-2018 Patient encounter procedure Yovani Orr Work Phone: Department of Radiology Comment on above: Canceled (Insurance Company Redirected Pt) Start: 10-05-2018 Patient encounter status Comfort Rivera [facility] Work Phone: [facility] Procedures Date Procedure Procedure Detail Performing Clinician Start: 09-13-2024 ALL CBC WITH AUTO DIFF Generic External Data Provider Start: 09-08-2024 History of renal transplant Clementina Montesinos Start: 09-07-2024 Follow-up visit Follow-up ANN [...] By: #### C HM7, HFP, MGO #### [facility] (DEFAULT) [address] [address] Start: 01-22-2024 Assay of magnesium Just in [...] Phone: Start: 01-20-2024 ITRACONAZOLE LEVEL Jennifer Alarcon [facility] Work Phone: Start: 01-20-2024 Oscillating positive [...] nos quantifica tion each organism Fidelina Alarcon [facility] Work Phone: Start: 01-18-2024 Echo tthrc r-t [...] AURIS SCREEN BY PCR Carol Ann Capps HYDROGEN CELL TENDER-PULP MILL OPERATOR Work Phone: Start: 01-08-2024 ALL CBC [...] Iadna nos amplified probe tq each organism Evangris Abreuamberangel Work Phone: Start: 08-31-2023 End: 08-31-2023 Iaad [...] AURIS SCREEN BY PCR Carol Ann Capps HYDROGEN CELL TENDER-PULP MILL OPERATOR Work Phone: Start: 08-28-2023 CBC AND ELECTRONIC DIFF iG Aranda MD Work Phone: Start: 08-28-2023 Complete [...] above: Performed By: #### C MP #### [facility] [address] [place], [place] [address] Dr. Dwight Waters Start: 07-07-2022 Rmvl nfros tube req fluoro guidance Ryan Yepez MD Work Phone: Start: 06-27-2022 Ct abdomen & pelvis w/o contrast material Evan Byrd MD Work Phone: Start: 06-12-2022 Culture bct isol&prs mptv id isolate ea urine Steve S Tammy [facility] Work Phone: Start: 06-12-2022 EXTRA MICRO Steve S Nor i MBBS Work Phone: Start: 06-12-2022 Hemoglobin glycosyla rukhsana a1c Steve S Tammy [facility] Work Phone: Start: 06-12-2022 Hepatic function panel Yovani Orr MD Work Phone: Start: 06-12-2022 URINALYSIS REFLEX TO CULTURE Steve S Tammy [facility] Work Phone: Start: 05-20-2022 Urography antegrade rs&i [...] S/P liver trans plant Comfort Rivera [facility] Work Phone: Start: 04-08-2020 H/O: liver recipient Liver tra nsplant recipient Comfort Rivera [facility] Work Phone: Start: 01-06-2020 Potassium serum [...] transplant -donor kidney transplant recipient Comfort Rivera [facility] Work Phone: Start: 06-10-2019 HEMOGLOBIN AND HEMAT OCRIT, BLOOD ROB KASMANI Start: 06-01-2019 Blood count hemoglobin ROB KASMANI Start: 03-22-2019 Lipid 1996 panel - S fabricio or Plasma Comfort Rivera [facility] Work Phone: Start: 01-14-2019 Potassium serum [...] Phone: Start: 10-12-2018 End: 10-12-2018 Antibody varicella-zoster oYvani Orr Work Phone: Start: 10-12-2018 End: 10-12-2018 Assay of ethanol Yovani Mejias [employer] Work Phone: Start: 10-12-2018 End: 10-12-2018 Assay of ferritin Yovani Mejias [facility] [employer] Work Phone: Start: 10-12-2018 End: 10-12-2018 Assay of iron Yovani Mejias [employer] Work Phone: Start: 10-12-2018 End: 10-12-2018 Assay of parathormone Yovani Mejias [employer] Work Phone: Start: 10-12-2018 End: 10-12-2018 Assay [...] H/O: liver recipient Liver trans plant recipient Diasha A Sobotka DO Work Phone: H/O: liver recipient S/P liver transplant Generic Provider H/O: liver recipient Liver trans plant recipient Daisha A Sobotka DO Work Phone: History of renal transplant Kidney replaced by transplant Steve S Tammy MBBS Work Phone: History of renal transplant -donor kidney transplant recipient Ryan Yepez MD Work Phone: History of renal transplant Kidney replaced by transplant Daisha Max DO Work Phone: History of renal transplant Kidney replaced by transplant Steve Colón Tammy MBBS Work Phone: History of renal transplant Kidney replaced by transplant Steve Colón Tammy MBBS Work Phone: History of renal transplant -donor kidney transplant recipient Steve Colón Tammy MBBS Work Phone: History of renal transplant Kidney replaced by transplant Rebeca Gutierrez APRN-BATCH AND FURNACE OPERATOR Work Phone: Plan of Treatment Date Care Activity Detail Author Start: 09-20-2029 Screening for malignant neoplasm of colon [facility] Start: 08-15-2025 Potassium [Moles/volume] in Serum or Plasma POTASSIUM [facility] Start: 07-04-2025 Potassium [Moles/volume] in Serum or Plasma POTASSIUM [facility] Start: 06-20-2025 Potassium [Moles/volume] in Serum or Plasma POTASSIUM [facility] Start: 06-16-2025 End: 06-16-2025 Patient encounter procedure [facility] Start: 06-13-2025 Potassium [Moles/volume] in Serum or Plasma POTASSIUM [facility] Start: 05-23-2025 Potassium [Moles/volume] in Serum or Plasma POTASSIUM [facility] Start: 03-28-2025 Potassium [Moles/volume] in Serum or Plasma POTASSIUM [facility] Start: 03-21-2025 Potassium [Moles/volume] in Serum or Plasma POTASSIUM [facility] Start: 02-28-2025 Potassium [Moles/volume] in Serum or Plasma POTASSIUM [facility] Start: 02-10-2025 Medicare Annual Wellness (AWV) Medicare Annual Wellness (AWV) [facility] Start: 01-23-2025 Potassium [Moles/volume] in Serum or Plasma POTASSIUM [facility] Start: 10-25-2024 End: 10-25-2024 Patient encounter procedure 10/25/2024 8:40 AM EST Office Visit [facility] [address] [place] [address] Zuly Bruno NP [address] [place] [address] [facility] Start: 09-29-2024 Influenza vaccination Influenza Vaccine (#1) [facility] Comment on above: Postponed from 07/31/2024 (Patient Refus ed) Start: 09-07-2024 End: 09-07-2024 Telemedicine consultation with patient 09/07/2024 3:00 PM EDT Telemedicine Infectious Diseases Care [facility] [address] [place] [phone] Evan White DO [address] [place], [place] [phone] Infectious Diseases Care [facility] Start: 08-31-2024 Screening for malignant neoplasm of lung [facility] Start: 07-31-2024 Influenza vaccination INFLUENZA VACCINE (#1) [facility] Start: 06-17-2024 End: 06-17-2024 ambulatory Comprehensive Transplant [facility] Start: 06-17-2024 End: 06-17-2024 Patient encounter procedure [facility] Start: 03-22-2024 Fasting lipid profile LIPID SCREENING [facility] Start: 03-22-2024 Lipid panel [facility] Start: 02-26-2024 End: 02-26-2024 Patient encounter procedure 02/26/2024 9:30 AM EDT [facility] [address] [place] [address] Candie Almaguer MD [address] [place] [address] [facility] Start: 02-11-2024 End: 02-11-2024 Patient encounter procedure 02/11/2024 10:30 AM EDT Office Visit [facility] [address] [place] [address] Zuly Bruno, BONDED STRAND OPERATOR [address] [place] [phone] [facility] Start: 02-09-2024 End: 02-09-2024 Telemedicine consultation with patient 02/09/2024 3:30 PM EDT Telemedicine Infectious Diseases Care [facility] [address] [place] [phone] Hakeem Alamo MD [address] [place] [address] Infectious Diseases Care [facility] Start: 01-15-2024 End: 01-15-2024 ambulatory [facility] Start: 01-15-2024 End: 01-15-2024 Patient encounter procedure [facility] Start: 01-06-2024 End: 01-06-2026 Echocardiogram 2D complete Echocardiogram 2D complete Echocardiography Routine DARLENE (obstructive sleep apnea) Primary hypertension (CMS/HCC) Bilateral lower extremity edema Shortness of breath Expected: 01/06/2024 (Approximate), Expires: 01/06/2026 [facility] Work Phone: Comment on above: Expected: 01/06/2024 (Approximate), Expi res: 01/06/2026 Start: 01-06-2024 End: 01-06-2024 Patient encounter procedure 01/06/2024 9:00 AM EST Office Visit [facility] [address] [place] [address] Zuly Bruno, BONDED STRAND OPERATOR [address] [place] [phone] [facility] Start: 12-08-2023 End: 09-07-2024 CT Chest WO contrast [facility] Work Phone: Start: 12-01-2023 COVID-19 VACCINE (2 - Moderna risk series) COVID-19 VACCINE (2 - Moderna risk series) [facility] Start: 09-23-2023 End: 09-23-2023 ambulatory Infectious Diseases Care [facility] Start: 09-23-2023 End: 09-23-2023 Telemedicine consultation with patient 09/23/2023 4:00 PM EDT Telemedicine Infectious Diseases Care [facility] [address] [place] [address] Hakeem Alamo MD [address] [facility] [address] [place] [address] Infectious Diseases Care [facility] Start: 09-15-2023 End: 09-10-2024 ITRACONAZOLE LEVEL [facility] Start: 08-25-2023 End: 08-25-2024 ALLOSCREEN RECIPIENT (POST TX PRA) ALLOSCREEN RECIPIENT (POST TX PRA) Lab Routine Kidney replaced by transplant Aftercare following organ transplant Immunosuppressed status High risk medication use Other general symptoms and signs Abnormal blood chemistry Expected: 08/25/2023, Expires: 08/25/2024 [facility] Comment on above: Expected: 08/25/2023, Expires: Start: 07-31-2023 Influenza vaccination [facility] Start: 06-12-2023 End: 06-12-2023 Patient encounter procedure 06/12/2023 Office Visit Transplant Surgery Steve Munoz, LU [address] [place] [address] [facility] Start: 03-11-2023 End: 03-11-2023 Telemedicine consultation with patient 03/11/2023 Telemedicine Urology Ryan Yepez MD [address] [facility] [address] [place] [address] Urology [facility] [place] [facility] Start: 01-16-2023 End: 01-16-2023 Patient encounter procedure 01/16/2023 Office Visit Transplant Surgery [facility] Start: 10-31-2022 End: 10-31-2022 Patient encounter procedure 10/31/2022 Office Visit Transplant Surgery Steve Munoz, LU [address] [place] [address] [facility] Start: 09-10-2022 End: 09-10-2023 PSA screening PSA, SCREENING Lab Routine BPH with obstruction/lower urinary tract symptoms Encounter for screening for malignant neoplasm of prostate Expected: 09/10/2022 (Approximate), Expires: 09/10/2023 [facility] Comment on above: Expected: 09/10/2022 (Approximate), Expi res: 09/10/2023 Start: 08-11-2022 End: 08-11-2022 Patient encounter procedure 08/11/2022 Office Visit Urology Ryan Yepez MD [address] [facility] [address] [place] [address] Urology Eye [facility] [place] Start: 07-31-2022 Influenza vaccination [facility] Start: 07-07-2022 End: 07-07-2022 Patient encounter procedure 07/07/2022 Office Visit Urology Ryan Yepez MD [address] [facility] [address] [place] [phone] [facility] [place] [facility] Start: 07-07-2022 End: 07-07-2023 FLUORO IMAGING FOR UROLOGY [facility] Comment on above: Expected: 07/07/2022, Expires: 3 1 Occurrences starti ng 07/07/2022 until 07/07/2022 Start: 06-27-2022 End: 06-27-2022 Patient encounter procedure 06/27/2022 Office Visit Urology Ryan Yepez MD [address] [facility] [address] [place] [address] Urology [facility] [place] Start: 06-27-2022 End: 06-27-2023 Basic metabolic 2000 panel - Serum or Plasma BASIC METABOLIC PANEL Lab Routine Other hydronephrosis Expected: 06/27/2022, Expires: 06/27/2023 [facility] Comment on above: Expected: 06/27/2022, Expires: Start: 06-27-2022 End: 06-27-2022 Patient encounter procedure 06/27/2022 Appointment Computerized Tomography Scan Ryan Yepez MD [address] [facility] [address] [place] [address] Department of Radiology Start: 06-15-2022 End: 05-16-2023 CT Abdomen and Pelvis WO contrast CT ABDOMEN/PELVIS WITHOUT CONTRAST Imaging Routine FAYE (acute kidney injury) Expected: 06/15/2022 (Approximate), Expires: 05/16/2023 [facility] Work Phone: Comment on above: Expected: 06/15/2022 (Approximate), Expi res: 05/16/2023 Start: 06-12-2022 End: 06-12-2022 Patient encounter procedure 06/12/2022 Office Visit Transplant Surgery Steve Munoz MBBS [address] [place] [address] [facility] Start: 06-11-2022 End: 06-11-2023 BK VIRUS DNA QN, PCR, PLASMA BK VIRUS DNA QN, PCR, PLASMA Lab Routine Kidney replaced by transplant Liver replaced by transplant Abnormal blood chemistry Expected: 06/11/2022, Expires: 06/11/2023 [facility] Comment on above: Expected: 06/11/2022, Expires: Start: 06-04-2022 End: 06-04-2022 Patient encounter procedure 06/04/2022 Office Visit [facility] Start: 10-18-2021 End: 10-18-2021 Patient encounter procedure 10/18/2021 Office Visit Transplant Surgery Steve Munoz, LU [address] [place] [phone] [facility] Start: 07-31-2021 Influenza vaccination INFLUENZA VACCINE (#1) [facility] Start: 07-26-2021 End: 07-26-2021 Patient encounter procedure 07/26/2021 Office Visit Transplant Surgery [facility] Start: 2021 Prostate specific antigen measurement [facility] Start: 2021 Screening for malignant neoplasm of lung LUNG CANCER SCREENING [facility] Start: 2021 Zoster vaccine hzv live for subcutaneous use ZOSTER (SHINGLES) VACCINE (1 of 2) [facility] Start: 09-20-2020 Colonoscopy COLORECTAL CANCER SCREENING DISCUSSION [facility] Start: 09-20-2020 Screening for malignant neoplasm of colon [facility] Start: 07-31-2019 Influenza vaccination Flu vaccine (#1) [place] Start: 05-22-2019 Annual Wellness Visit (AWV) Annual Wellness Visit (AWV) [place] Start: 04-18-2019 End: 10-19-2019 Ultrasonography of abdomen US ABDOMEN RUQ/LIVER/GB Routine Cirrhosis of liver without ascites, unspecified hepatic cirrhosis type Expected: 04/18/2019 (Approximate), Expires: 10/19/2019 [facility] Work Phone: Comment on above: Expected: 04/18/2019 (Approximate), Expi res: 10/19/2019 Start: 01-25-2019 End: 01-25-2019 Ambulatory 01/25/2019 Office Visit Gastroenterology Christin Elizabeth, HYDROGEN CELL TENDER-BATCH AND FURNACE OPERATOR [address] [place] [phone] Division of Gastroenterology and Hepatology Gavin Start: [...] for liver transplant Expected: 10/12/2018, Expires: 10/12/2019 [facility] Work Phone: Comment on above: Expected: 10/12/2018, Expires: 9 Start: 10-12-2018 End: 10-12-2019 TYPE AND SCREEN - NOT FOR TRANSFUSION TYPE AND SCREEN - NOT FOR TRANSFUSION Routine Alcoholic cirrhosis, unspecified whether ascites present Pre-transplant evaluation for liver transplant Expected: 10/12/2018, Expires: 10/12/2019 [facility] Work Phone: Comment on above: Expected: 10/12/2018, Expires: 9 Start: 07-31-2018 Influenza vaccination INFLUENZA VACCINE (#1) [facility] Work Phone: Start: 2011 Fasting lipid profile LIPID SCREENING [facility] Work Phone: Start: 2011 Lipid screen Lipid screen [place], [place] Start: 1990 DTaP/Tdap/Td vaccine (1 - Tdap) DTaP/Tdap/Td vaccine (1 - Tdap) [place] Start: 1990 Hepatitis B vaccination HEP B VACCINE (1 of 3 - 19+ 3-dose series) [facility] Start: 1990 Hepatitis B Vaccine (1 of 3 - Risk Recombivax 3-dose series) Hepatitis B Vaccine (1 of 3 - Risk Recombivax 3-dose series) [place] Start: 1990 Third diphtheria, tetanus and acellular pertussis (DTaP) vaccination [facility] Start: 1990 Zoster vaccine hzv live for subcutaneous use ZOSTER (SHINGLES) VACCINE (1 of 2) [facility] Start: 1990 [facility] Start: 1989 Tetanus vaccination TETANUS [facility] Start: 1986 HIV screen HIV screen [place] Start: 02-17-1984 HIV screening HIV SCREENING DISCUSSION [facility] Work Phone: Start: 1983 COVID-19 VACCINE (1) COVID-19 VACCINE (1) [facility] Start: 1982 DTaP/Tdap/Td vaccine (1 - Tdap) DTaP/Tdap/Td vaccine (1 - Tdap) [place] Start: 1977 Pneumococcal 0-64 years Vaccine (1 of 3 - PCV13) Pneumococcal 0-64 years Vaccine (1 of 3 - PCV13) [place] Start: 1977 PNEUMOCOCCAL VACCINE SERIES (1 - PCV) PNEUMOCOCCAL VACCINE SERIES (1 - PCV) [facility] Start: 1977 PNEUMOCOCCAL VACCINE SERIES (1 of 2 - PCV) PNEUMOCOCCAL VACCINE SERIES (1 of 2 - PCV) [facility] Start: 1977 [facility] Start: 02-17-1976 COVID-19 VACCINE (#1) COVID-19 VACCINE (#1) [facility] Start: 02-17-1976 [facility] Start: 1971 COVID-19 VACCINE (#1) COVID-19 VACCINE (#1) [facility] Start: 1971 Hepatitis B vaccination HEP B VACCINE (1 of 3 - 3-dose series) [facility] Start: 1971 Medicare Annual Wellness (AWV) Medicare Annual Wellness (AWV) [facility] Start: 1971 Screening for malignant neoplasm of colon [facility] Start: 1971 Tetanus vaccination [facility] BK VIRUS DNA QN, PCR , PLASMA BK VIRUS DNA QN, PCR, PLASMA Lab Routine Kidney replaced by transplant Liver replaced by transplant Abnormal blood chemistry 06/12/2022 3:38 PM EDT [facility] CALCULI, URINARY (KIDNEY STONE) CALCULI, URINARY (KIDNEY STONE) Fluids Routine 05/19/2022 8:16 AM EDT [facility] Work Phone: CANNABINOIDS, QUANT (URINE)THC CONFIRMATION CANNABINOIDS, QUANT (URINE)THC CONFIRMATION Routine Alcoholic cirrhosis, unspecified whether ascites present ESRD (end stage renal disease) on dialysis Pre-transplant evaluation for liver transplant 10/12/2018 12:57 PM [facility] Work Phone: End: 09-10-2024 CHEM 6 (LYTES, BUN CREA) [facility] EBV VCA IGG AB EBV VCA IGG AB R outine Alcoholic cirrhosis, unspecified whether ascites present ESRD (end stage renal disease) on dialysis Pre-transplant evaluation for liver transplant 10/12/2018 12:57 PM [facility] Work Phone: Fungus identified in Unspecified specimen by Culture [facility] HLA TYPING (SOLID ORGAN) HLA TYPING (SOLID ORGAN) Routine Alcoholic cirrhosis, unspecified whether ascites present ESRD (end stage renal disease) on dialysis Pre-transplant evaluation for liver transplant 10/12/2018 12:57 PM [facility] Work Phone: HSV 1 AND 2 IGG ANTIBODY HSV 1 AND 2 IGG ANTIBODY Routine Alcoholic cirrhosis, unspecified whether ascites present ESRD (end stage renal disease) on dialysis Pre-transplant evaluation for liver transplant 10/12/2018 12:57 PM [facility] Work Phone: MR Abdomen WO and W contrast IV MRI ABDOMEN WITH AND WITHOUT CONTRAST Imaging Routine Liver lesion Ordered: 06/17/2024 [facility] Comment on above: Ordered: 06/17/2024 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 specific culture [facility] PLACEMENT NEPHROSTOM Y CATHETER PERCUTANEOUS W/ IMAGE GUIDANCE PLACEMENT NEPHROSTOMY CATHETER PERCUTANEOUS W/ IMAGE GUIDANCE Imaging Routine Hydronephrosis due to obstruction of ureteral orifice FAYE (acute kidney injury) 05/17/2022 11:08 AM EDT [facility] WI POST VOID RESIDUAL WI POST VO ID RESIDUAL WI - OFFICE PERFORMED Routine BPH with obstruction/lower urinary tract symptoms Ordered: 09/10/2022 [facility] Comment on above: Ordered: 09/10/2022 PTH INTACT PTH INTACT Routi ne Alcoholic cirrhosis, unspecified whether ascites present ESRD (end stage renal disease) on dialysis Pre-transplant evaluation for liver transplant 10/12/2018 12:57 PM [facility] Work Phone: RUBEOLA IGG AB (IMMU NE STATUS) RUBEOLA IGG AB (IMMUNE STATUS) Routine Alcoholic cirrhosis, unspecified whether ascites present ESRD (end stage renal disease) on dialysis Pre-transplant evaluation for liver transplant 10/12/2018 12:57 PM [facility] Work Phone: End: 01-16-2024 Standard ECG ECG ECG Routine One Time for 1 Occurrences starting 01/16/2024 until 01/16/2024 [facility] Comment on above: One Time for 1 Occurrences starting 12/31 until 01/16/2024 End: 09-10-2024 TACROLIMUS LEVEL, TROUGH (PRE DRUG LEVEL) [facility] VARICELLA IGG AB (IM M STATUS) VARICELLA IGG AB (IMM STATUS) Routine Alcoholic cirrhosis, unspecified whether ascites present ESRD (end stage renal disease) on dialysis Pre-transplant evaluation for liver transplant 10/12/2018 12:57 PM [facility] Work Phone: Immunizations Immunization Date Immunization Notes Care Provider Zeeshan yi 11-03-2023 influenza virus vacc ine, unspecified formulation Generic [facility] 11-03-2023 Influenza, injectabl e, Madin [place] Canine Kidney, preservative free, quadrivalent Generic [facility] 11-03-2023 Moderna SARS-CoV-2 50mcg/0.5mL Booster Generic Provider [facility] 08-28-2022 influenza, injectabl e, quadrivalent, preservative free Generic Provider [facility] 09-30-2021 influenza, injectabl e, quadrivalent, preservative free Generic Provider [facility] 10-16-2020 influenza, injectabl e, quadrivalent, contains preservative Generic Provider [facility] Payers Date Payer Category Payer Unknown [id number] 2019 Unknown [facility] [id number] 2019-Present [id number] 2018 Medicaid [place] [facility] DEPT OF JOB xxxxxxxxxxxx 2018-Present [phone] [address] [place] [address] xxxxxxxxxxxx [id number] [id number] 2018 Medicaid MEDICAID MEDICAI D [id number] 2018-Present [address] [place] [address] [id number] .[id number] 2018 Medicaid [id number] [id number] .[id number] 2018 Medicare MEDICARE MEDICAR E PART A AND B xxxxxxxxxxx 2018-Present [phone] [address] [address] [place] [address] xxxxxxxxxxx [id number] .[id number] 2018 Medicare [id number] 2018 Medicare MEDICARE MEDICAR E A AND B [id number] 2018-Present [address] [place] [address] [id number] .[id number] 2018 Medicare [id number]. 1.13.172.2.7.3 .883856.315 1971 Unknown [id number] 2.16.840.1.907179.3.579.2.173 1971 Unknown [id number] 2.16.840.1.213080.3.579.2.173 1971 Unknown [id number] 2.16.840.1.652399.3.579.2.173 1971 Unknown [id number] 2.16.840.1.692459.3.579.2.173 1971 Unknown [id number] 2.16.840.1.851662.3.579.2.173 1971 Unknown [id number] 2.16.840.1.535395.3.579.2.173 1971 Unknown [id number] 2.16.840.1.668277.3.579.2.173 1971 Unknown [id number] 2.16.840.1.217657.3.579.2.173 1971 Unknown [id number] 2.16.840.1.070439.3.579.2.647 1971 Unknown [id number] 2.16.840.1.401262.3.579.2.593 1971 Unknown [id number] 2.16.840.1.158000.3.579.2.593 1971 Unknown [id number] 2.16.840.1.908835.3.579.2.593 1971 Unknown [id number] 2.16.840.1.395664.3.579.2.593 1971 Unknown [id number] 2.16.840.1.171557.3.579.2.593 1971 Unknown [id number] 2.16.840.1.148520.3.579.2.593 1971 Unknown [id number] 2.16.840.1.667006.3.579.2.593 1971 Unknown [id number] 2.16.840.1.080915.3.579.2.593 1971 Unknown [id number] 2.16.840.1.957063.3.579.2.593 1971 Unknown [id number] 2.16.840.1.799111.3.579.2.593 1971 Unknown [id number] 2.16.840.1.476331.3.579.2.593 1971 Unknown [id number] 2.16.840.1.494628.3.579.2.593 1971 Unknown [id number] 2.16.840.1.679877.3.579.2.593 1971 Unknown [id number] 2.16.840.1.930526.3.579.2.593 1971 Unknown [id number] 2.16.840.1.529956.3.579.2.593 1971 Unknown [id number] 2.16.840.1.365420.3.579.2.125 9 1971 Unknown [id number] 2.16.840.1.788674.3.579.2.125 9 1971 Unknown [id number] 2.16.840.1.022304.3.579.2.125 9 1971 Unknown [id number] 2.16.840.1.494094.3.579.2.125 9 1971 Unknown [id number] 2.16.840.1.039913.3.579.2.125 9 1971 Unknown [id number] 2.16.840.1.343978.3.579.2.125 9 1971 Unknown [id number] 2.16.840.1.393651.3.579.2.125 9 1971 Unknown [id number] 2.16.840.1.844165.3.579.2.125 9 1971 Unknown [id number] 2.16.840.1.727324.3.579.2.125 9 1971 Unknown [id number] 2.16.840.1.556454.3.579.2.125 9 1971 Unknown [id number] 2.16.840.1.524646.3.579.2.125 9 1971 Unknown [id number] 2.16.840.1.136304.3.579.2.125 9 1971 Unknown [id number] 2.16.840.1.127161.3.579.2.125 9 1971 Unknown [id number] 2.840.1.143028.3.579.2.125 9 1971 Unknown [id number] 2.16.840.1.383980.3.579.2.125 9 1971 Unknown [id number] .840.1.090329.3.579.2.594 1971 Unknown [id number] .840.1.781609.3.579.2.594 1971 Unknown [id number] 840.1.519921.3.579.2.594 1971 Unknown [id number] .16.840.1.677769.3.579.2.594 1971 Unknown [id number] .16840.1.675982.3.579.2.594 1971 Unknown [id number] .840.1.577016.3.579.2.594 1971 Unknown [id number] .16840.1.319326.3.579.2.594 1971 Unknown [id number] 2.16.840.1.744793.3.579.2.594 1971 Unknown [id number] 2.16.840.1.385239.3.579.2.594 1971 Unknown [id number] 2.16.840.1.229881.3.579.2.594 1971 Unknown [id number] 2.16.840.1.244962.3.579.2.594 1971 Unknown [id number] 2.16.840.1.949613.3.579.2.727 1971 Unknown [id number] 2.16.840.1.320890.3.579.2.727 1959 Medicaid [id number] 1958 Medicare [id number] Social History Date Type Detail Facility Start: 10-19-2018 End: 11-03-2023 Tobacco smoking status DCIS Former smoker [facility] Start: 07-19-1988 End: 05-14-2018 History of tobacco use Current smoker [facility] Work Phone: Start: 07-19-1988 End: 05-14-2018 History of tobacco use Cigarette Smoker [facility] Work Phone: Start: 10-19-2018 End: 10-27-2023 Cigarettes smoked current (pack per day) - Reported [facility] End: 07-19-1994 History of tobacco use Chews Tobacco [facility] Work Phone: Start: 1970 Sex Assigned At Not on file [facility] Work Phone: Start: 11-03-2018 Alcohol intake Current non-drinker of alcohol (finding) [place] Start: 06-22-2018 Alcohol Comment Hx of alcoholism [place] Start: 11-03-2018 End: 10-27-2023 Alcohol intake No [facility] Start: 07-19-2018 Tobacco use and exposure Former user [facility] Start: 09-06-2020 End: 08-23-2024 Alcohol intake Ex-drinker (finding) [facility] Start: 07-19-2018 Alcohol Comment stopped 05/14/2018 [facility] Start: 05-05-2022 End: 01-16-2023 Exposure to SARS-CoV-2 (event) Not sure [facility] Start: 07-07-2018 Gender identity Identifies as male gender (finding) [facility] Start: 01-16-2022 Sexual orientation Heterosexual (finding) [facility] Start: 11-03-2023 Tobacco use and exposure Smokeless tobacco non-user [facility] Within the last year , have you been afraid of your partner or ex-partner? No [facility] Are you now , , , , never or living with a partner? Refused [facility] How often to you hav e a drink containing alcohol? Never [facility] How many standard dr inks containing alcohol do you have on a [...] Never smoked tobacco (finding) [facility] Do you belong to any clubs or organizations such as restorationist groups, unions, fraternal or athletic groups, or school groups? Yes [facility] Are you now , , , , never or living with a partner? [facility] Medical Equipment Procedure Code Equipment Code Equipment Original Text Equipment Identifier Dates [id number] Start: 05-23-2020 [id number] Start: 04-12-2020 [id number] [facility] [facility] Start: 05-17-2022 Comment on above: Description: Implant time-out completed by intra-procedural staff including this RN, blending technician, and performing physician. The following was [...] 09-08-2024 Functional Status N/A [facility] Clinical Notes 06-14-2021 to 09-08-2024 Starla Jerry - 09/05/2024 3:24 PM Milagros Clawson - 06/23/2024 8:51 AM Hannah Max DO [...] urethra. Follow these instructions at home: Take lwig-nbz-iyzkbcc and prescription medicines only as told by [...] provider. Document Revised: 06/04/2022 Document Reviewed: 06/04/2022 [employer] Patient Education 2023 TEEspy. 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 Screening PSA (prostate specific antigen) (Z12.5: Encounter for screening for malignant neoplasm of prostate) No PSA records on file -Will discuss with patient at his follow up Ordered: E&M of New Patient Moderate 45-59 Min 77444 3. History of kidney transplant (Z94.0: Kidney transplant status) 08/29/24 - BUN 18, Cre 1.3, GFR 58 Pt had liver and kidney transplant in 2020 and follows yearly with [facility]. Ordered: E&M of New Patient Moderate 45-59 Min 17408 Orders: tamsulosin, 0.4 mg = 1 cap(s), Oral, BID, X 30 day(s), # 60 cap(s), Refills(s) 11, Pharmacy: [facility], 170, cm, 09/08/24 14:00:00 EDT, Height/Length Dosing, 90, kg, 09/08/24 14:00:00 EDT, Weight Dosing 71113 Measure Post Void residual urine and/or bladder capacity by US- non-imaging Urnls Dip Stick Auto w/o Microscopy POC 33460 Follow-up With When Contact Information Jaguar CASTILLO, Clementina J, URL Within 3 months Additional Instructions: med increase [...] Urine Dipstick: Negative (more content not included)... [facility] Comment on above: Result Comment: Elec tronically [...] Follow these instructions at home: ? Take krpz-eer-jzfyrzq and prescription medicines only as told by [...] develop side effec (more content not included)... [facility] 09-05-2024 History of Present illness Narrative [facility] RX OUTREACH ADVANCED: Call Information: Date and Time of Contact: 09/05/2024 3:24 PM Method of Contact: By Phone Contact Type: Prescriptions Contactor: Patient Contactee: [facility] OP Shipping/Pickup: Medicare B Refill?: No Medication Name: Mycophenolate, prograf Delivery Method: Ship Delivery Location: Home Signature Required: No Receive/Pickup Date: 09/06/2024 Shipping Address: [address] [place] [address] 179 Contact Info: Specialty ([place]) [phone] [facility] [phone] [facility] [phone] David [phone] Bedside Delivery ([facility]) [phone] documented in this encounter [facility] 06-23-2024 History of Present illness Narrative [facility] OP RX OUTREACH ADVANCED: Call Information: Date and Time of Contact: 06/23/2024 8:52 AM Method of Contact: By Phone Contact Type: Prescriptions Contactor: [facility] OP Contactee: Patient Shipping/Pickup: Medicare B Refill?: No Medication Name: Prograf 0.2mg Delivery Method: Ship Delivery Location: Home Signature Required: No Receive/Pickup Date: 06/29/2024 Shipping Address: [address] [place] [address] 179 Contact Info: Specialty ([place]) [phone] [facility] [phone] [facility] [phone] [facility] [phone] Bedside Delivery ([facility]) [phone] documented in this encounter [facility] 06-17-2024 History of Present illness Narrative -Referring Provider for today's consult: Self, Self -Primary Care Provider: Zuly Bruno History of Present Illness George Styles is a 54 y.o. male [facility] [...] Left; Surgeon: Jyoti Bryant MD, PhD; Location: [facility] MAIN OR PLACEMENT NEPHROSTOMY CATHETER PERCUTANEOUS W/ IMAGE GUIDANCE 05/17/2022 Surgeon: Enzo Heart DO; Location: [facility] INTERVENTIONAL RADIOLOGY (VIR) LIVER TRANSPLANT, ORTHOTOPIC N/A 04/12/2020 Laterality: N/A; Surgeon: LU Palma; Location: [facility] SAME DAY SURGERY MAIN OR KIDNEY TRANSPLANT W/O [place] NEPHRECTOMY N/A 04/12/2020 Laterality: N/A; Surgeon: LU Palma; Location: [facility] SAME DAY SURGERY MAIN OR OTHER [...] 0.2 06/13/2024 Explant Pathology Pathologic Diagnosis A. [place] liver, orthotopic liver transplant resection (1458 gram): [...] up in 1 year. Daisha Max DO Policy Checker Gastroenterology, Hepatology and Nutrition [facility] Pager: [phone] Images from the original note were not included. 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 Floor Covering Printer: Anayeli Burt Date of Liver Transplant: 04/13/2020 (Kidney), 04/13/2020 (Liver) 4 years, 2 months post Liver/Kidney Transplant Primary Disease: Hypertensive Nephrosclerosis Transplant Dubbing Machine Operator: Erma Roe/ Daisha Max Primary [...] LAB AND PHARMACY: None Specified [id number] [place] [address] - [address] [facility] [address] [facility] [address] [facility] [place] [facility] [address] [facility] [address] [facility]/pharmacy #[id number] [place] [address] - [address] [facility] [address] [facility] [address] [facility] Outpatient Pharmacy Jorge Chaudhry [address] [address] ROS and SCREEN: Chest Pain: negative Cough: [...] year: no Do you follow with a Business Case Analyst? yes Do you have a Primary Care [...] ADDRESS WITH PHYSICIAN: documented in this encounter [facility] 06-17-2024 Instructions Ashlee Fair RN - 06/17/2024 10:00 AM EDT - No medication changes from a liver standpoint - A MRI Abdomen has been ordered today. Please call central scheduling at [phone] to schedule or take paper copy to your local hospital - Return to clinic 06/16/2025 TRANSPLANT HEPATOLOGY 3, [facility] as scheduled documented in this encounter [facility] 06-17-2024 History of Present illness Narrative Images from the original note were not included. George Styles is a 54 y.o. 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 No longer follows with a local industrial seamstress. History of Present Illness: Since George was [...] and lab results. Rebeca Gutierrez MSN, RN, HYDROGEN CELL TENDER-BC, CCTN Certified Nurse Practitioner [facility] [address] [facility] [address] documented in this encounter [facility] 06-17-2024 Instructions JEANNA Hess - 06/17/2024 9:30 AM EDT Tacrolimus - increase to 0.2 mg packet three time per day; goal 3 to 5 ng/dL ; when the itraconazole stops 09/03/2024, reduce to 0.5 mg twice daily. Once your tacrolimus level is 3-5 ng/dL, you may reduce labs to every other week. documented in this encounter [facility] 05-26-2024 History of Present illness Narrative [facility] RX OUTREACH ADVANCED: Call Information: Date and Time of Contact: 05/26/2024 4:35 PM Method of Contact: By Phone Contact Type: Prescriptions Contactor: [facility] OP Contactee: Patient Contact Outcome: Left message and Follow-up Contact Info: Specialty ([place]) [phone] Jakob [phone] [facility] [phone] David [phone] Bedside Delivery ([facility]) [phone] [facility] RX OUTREACH ADVANCED: Call Information: Date and Time of Contact: 05/30/2024 4:52 PM Method of Contact: By Phone Contact Type: Prescriptions Contactor: Patient Contactee: [facility] OP Shipping/Pickup: Medicare B Refill?: No Medication Name: Myco sod 360mg, Prograf 0.2mg Delivery Method: Ship Delivery Location: Home Signature Required: No Receive/Pickup Date: 06/06/2024 Shipping Address: [address] [place], [place] [address] Contact Info: Specialty ([place]) [phone] Jakob [phone] [facility] [phone] David [phone] Bedside Delivery ([facility]) [phone] documented in this encounter [facility] 05-13-2024 Note [facility] Subjective George Styles is a 54 y.o. [...] , Rfl: t (more content not included)... [facility] 03-24-2024 History of Present illness Narrative [facility] RX OUTREACH ADVANCED: Call Information: Date and Time of Contact: 03/24/2024 4:14 PM Method of Contact: By Phone Contact Type: Prescriptions Contactor: [facility] OP Contactee: Patient Contact Outcome: Left message Shipping/Pickup: Medication Name: Prograf 0.2mg pack Contact Info: Specialty ([place]) [phone] [facility] [phone] [facility] [phone] David [phone] Bedside Delivery ([facility]) [phone] [facility] RX OUTREACH ADVANCED: Call Information: Date and Time of Contact: 03/28/2024 3:58 PM Method of Contact: By Phone Contact Type: Prescriptions Contactor: [facility] OP Contactee: Patient Contact Outcome: Left message and Call back later Shipping/Pickup: Medication Name: Mycophenolate, prograf Contact Info: Specialty ([place]) [phone] [facility] [phone] [facility] [phone] David [phone] Bedside Delivery ([facility]) [phone] [facility] RX OUTREACH ADVANCED: Call Information: Method of Contact: By Phone Contact Type: Prescriptions Contactor: Patient Contactee: [facility] Shipping/Pickup: Medicare B Refill?: No Medication Name: Mycopheolate 360mg and Prograf Delivery Method: Ship Delivery Location: Home Signature Required: No Receive/Pickup Date: 04/04/2024 Shipping Address: [address] [place] [address] [address] Contact Info: Specialty ([place]) [phone] [facility] [phone] [facility] [phone] David [phone] Bedside Delivery ([facility]) [phone] documented in this encounter [facility] 03-24-2024 History of Present illness Narrative [facility] RX OUTREACH ADVANCED: Call Information: Date and Time of Contact: 03/24/2024 4:14 PM Method of Contact: By Phone Contact Type: Prescriptions Contactor: [facility] OP Contactee: Patient Contact Outcome: Left message Shipping/Pickup: Medication Name: Prograf 0.2mg pack Contact Info: Specialty ([place]) [phone] [facility] [phone] [facility] [phone] David [phone] Bedside Delivery ([facility]) [phone] [facility] RX OUTREACH ADVANCED: Call Information: Date and Time of Contact: 03/28/2024 3:58 PM Method of Contact: By Phone Contact Type: Prescriptions Contactor: [facility] OP Contactee: Patient Contact Outcome: Left message and Call back later Shipping/Pickup: Medication Name: Mycophenolate, prograf Contact Info: Specialty ([place]) [phone] [facility] [phone] [facility] [phone] David [phone] Bedside Delivery ([facility]) [phone] [facility] RX OUTREACH ADVANCED: Call Information: Method of Contact: By Phone Contact Type: Prescriptions Contactor: Patient Contactee: [facility] Shipping/Pickup: Medicare B Refill?: No Medication Name: Mycopheolate 360mg and Prograf Delivery Method: Ship Delivery Location: Home Signature Required: No Receive/Pickup Date: 04/04/2024 Shipping Address: [address] Contact Info: Specialty ([place]) [phone] Jakob [phone] [facility] [phone] David [phone] Bedside Delivery ([facility]) [phone] [facility] RX OUTREACH ADVANCED: Pre-Verification/Specialty Assessment/Disease [...] Within normal limits Contact Info: Specialty ([place]) [phone] Jakob [phone] [facility] [phone] David [phone] Bedside Delivery ([facility]) [phone] documented in this encounter [facility] 03-02-2024 History of Present illness [...] del of broth Contact Info: Specialty ([place]) [phone] [facility] [phone] [facility] [phone] David [phone] Bedside Delivery ([facility]) [phone] [facility] RX OUTREACH ADVANCED: Call Information: Date and Time of Contact: 03/02/2024 3:49 PM Method of Contact: By Phone Contact Type: Prescriptions Contactor: [facility] OP Contactee: Patient Contact Outcome: Left message and Follow-up Shipping/Pickup: Medication Name: Myco 360mg and Prograf 0.2mg Contact Info: Specialty ([place]) [phone] Jakob [phone] [facility] [phone] David [phone] Bedside Delivery ([facility]) [phone] [facility] OP RX OUTREACH ADVANCED: Call Information: Date and Time of Contact: 03/02/2024 4:08 PM Method of Contact: By Phone Contact Type: Prescriptions Contactor: [facility] OP Contactee: Patient Shipping/Pickup: Medicare B Refill?: No Medication Name: Myco 360 / prograf 0.2 Delivery Method: Ship Delivery Location: Home Signature Required: No Receive/Pickup Date: 03/03/2024 Shipping Address: [address] [place] [address] [address] Contact Info: Specialty ([place]) [phone] Jakob [phone] [facility] [phone] David [phone] Bedside Delivery ([facility]) [phone] documented in this encounter [facility] 02-26-2024 History of Present [...] the [facility] on 02/26/2024 for initial evaluation of [...] Left; Surgeon: Jyoti Bryant MD, PhD; Location: [facility] MAIN OR PLACEMENT NEPHROSTOMY CATHETER PERCUTANEOUS W/ IMAGE GUIDANCE 05/17/2022 Surgeon: Enzo Heart DO; Location: [facility] INTERVENTIONAL RADIOLOGY (VIR) LIVER TRANSPLANT, ORTHOTOPIC N/A 04/12/2020 Laterality: N/A; Surgeon: LU Palma; Location: [facility] SAME DAY SURGERY MAIN OR KIDNEY TRANSPLANT W/O [place] NEPHRECTOMY N/A 04/12/2020 Laterality: N/A; Surgeon: LU Palma; Location: [facility] SAME DAY SURGERY MAIN OR OTHER [...] qd Antithrombotic: no Statin: no ICD: NA CLAM GROWER: NA CV Test results: ECHOCARDIOGRAM 01/18/2024 (Final) Interpretation Summary Left Ventricle: Chamber size is normal. Increased wall thickness. Concentric hypertrophy. Normal global systolic function. Regional wall motion is normal. Ejection fraction is normal (55 - 60%). Right Ventricle: Chamber size is normal. Systolic function is low normal. No hemodynamically significnat valve disease. Moderate pericardial effusion. There is no evidence of tamponade. [facility] (01/20/24) Hemodynamic Summary: Baseline Hemodynamics Systemic BP [...] will be BP control. Candie Almaguer M.D. hydraulic press operator Advanced Heart Failure Program Division of Cardiovascular Medicine [facility] [email or web address] ph [phone] fax [phone] documented in this encounter [facility] 02-26-2024 Instructions Marsha Mckeon RN - 02/26/2024 9:30 AM EDT The following instructions were given today: Labs today Follow up with Dr. Almaguer as needed. Your after visit summary (AVS) is viewable in [facility] My Chart. Call RN if you have cardiac questions/concerns M-F 8 to 4:30 ; office # [phone], option 6, then option 2. Guidelines for home management: 1. Continue to monitor weight first thing each morning. 2. Report to the CHF CLINIC ([phone]) any significant weight change. Remember that weight [...] to have labs/tests run outside of the [facility] and you do not hear from us 1-2 days after they are performed, you must call us to ensure we received the results. Office fax # [phone]. No news does not necessarily mean that your tests are normal, it could mean we did not get the results. For questions/updates: please provide your name with spelling, date of and question or update All calls are prioritized and responses researched, if possible, prior to calls being returned. Call Scheduling for any appointment/procedure verification or changes [phone], option 7 or [facility] Heart Schedulers at [phone], option 1. documented in this encounter [facility] 01-23-2024 Nurse Note Jakob wrap & kerlix [...] to transport home on home oxygen supply. [facility] 01-23-2024 Miscellaneous Notes Jakob wrap & kerlix [...] verbalization of pain descriptors George Tray Styles ([id number]) PRE OPERATIVE DIAGNOSIS High output congestive heart failure [I50.83] POST OPERATIVE DIAGNOSIS Post-Op Diagnosis Codes: * High output congestive heart failure [I50.83] PROCEDURE PERFORMED Procedure(s) (LRB): LIGATION ANGIOACCESS AVF (Left) Resection of large aneurysmic vein PRIMARY CLOSURE Yes INTRAOPERATIVE FINDINGS No significant abnormalities SURGEON Surgeons and Role: * Jyoti Bryant MD, PhD - Primary ANESTHESIOLOGIST Anesthesiologist: Celena Tiwari MD; Kehinde Gutierrez MD STAFF ELECTRONIC WARFARE OFFICER: David Jasso APRN-STAFF ELECTRONIC WARFARE OFFICER Stagecraft Teacher Assisting: Mini Khan MD SURGICAL STAFF Scale Attendant: Zoila Lawrence RN Relief Scale Attendant: Marimar Saravia RN Relief Scrub: Briseyda Self [...] Axillary block. SURGEON(S): Jyoti Bryant MD, PHD ROLLER SHOP UTILITY WORKER: Mynor Fall MD ESTIMATED BLOOD LOSS: Minimal. [...] Jyoti Bryant MD, PHD ATTENDING AR/MedFlorencio JOB: [id number] DOC: [id number] Patient has been asleep this shift. He [...] overnight coverage, Jasper Gastelum MD, via pager #[phone] Pt- George Styles. Sarah 1082. TM1. Was wondering if he can have his Melatonin order increased to 6mg. Per pt, he usually takes 8mg at home. -SAMI Duffy #[phone] Tati Charles RN Internal Medicine Daily Progress Note Patient: George Styles, 1970, [id number] Physician: Arelis Mera MD, PGY3, Pager #[phone], TM1 service Assessment/Plan: George Styles is a [...] home amlodipine 5mg CAD: non-obstructive CAD on [facility] 2018. - continue home aspirin 81mg [...] Mera MD Mr. Styles was admitted to [address] [place] [address]. On admission to [facility], from outside facility a dual RN initial assessment of skin condition was performed by Izzy Gutierrez, RN and Leroy Singleton, SAMI. Skin Assessment: Skin within defined limits:Yes Jose Score: 20 Wound Vision Direct Chill Casting Operator images obtained: No LDA Added: No [...] station when available. documented in this encounter [facility] 01-23-2024 Nurse Note Home Oxygen Qualification Patient: [...] at 4L of oxygen is also required.) [facility] 01-23-2024 History of Present illness Narrative BRIEF [...] mg Oral Daily Kelvin Pacheco MD, JOSHBS religion professor Transplant nephrology Surgery Post-Op Check Note [...] monitor Leonel Harris DO General Surgery Pager [phone] CM went to bedside to talk with patient. Patient states he has home oxygen through [employer]. He uses 2.5 LNC around the clock. Patient states his brother will bring a tank for discharge. Anticipate patient will discharge tomorrow AM. Brother updated. Girish Oro RN, BSN Clinical Carcass Trimmer Please note that I am a float telephonic case manager and may not cover the same service every day. Please call the main Case Management office at [phone] for up-to-date coverage. Verified patients identity using [...] Daily Progress Note Patient: George Styles, 1970, [id number] Physician: Yury Ozuna MD, PGY1, Pager #[phone], GT8 service Assessment/Plan: George Styles is a 53 [...] by transplant surgery on 01/22 (NPO at dc, updated type & screen) S/p Liver-Kidney Transplant [...] home amlodipine 5mg CAD: non-obstructive CAD on [facility] 2018. - continue home aspirin 81mg [...] with the Nutrition plan outlined in the Shovel Handle Assembler s note. DVT prophylaxis with lovenox [...] in resident note. Kelvin Pacheco MD, LU religion professor Transplant nephrology Patient seen and examined [...] Oral BID AC Kelvin Pacheco MD, MBBS religion professor Transplant nephrology Images from the original note were not included. Internal Medicine Daily Progress Note Patient: George Styles, 1970, [id number] Physician: Yury Ozuna MD, PGY1, Pager #[phone], TM1 service Assessment/Plan: George Styles is a [...] with the Nutrition plan outlined in the Shovel Handle Assembler s note. DVT prophylaxis with lovenox [...] Provider: Zuly Bruno NP Pharmacy: [facility] [address] Other Comments: Patient reported his Last Home Dose of mycophenolate and tacrolimus was on 01/15/24 at 0700. Medications that need removed from Outside Medication Reconciliation list: Please remove all medications. Please feel free to contact me with any further questions. Name: Heidy Chatman Phone #: [phone] Date/Time: 01/19/2024 12:08 PM Time Spent: 15 minutes Associated attestation - Fidelina Alarcon RPH - 01/19/2024 12:41 PM EST Department of Pharmacy Admission Medication Reconciliation Note Patient: George Styles Room/Bed: 1082/A I have reviewed the home medication list with the Steel Detailer. The home medication list status is: complete. All changes to the home medication list have been updated in [facility]. Updated LOSS CONTROL MANAGER Med List: Prior to Admission Medications [...] with any further questions. Name: Fidelina Alarcon, [facility] Phone #: [phone] Date/Time: 01/19/2024 12:41 PM Internal Medicine Daily Progress Note Patient: George Styles, 1970, [id number] Physician: Yury Ozuna MD, PGY1, Pager #[phone], YJ7 service Assessment/Plan: Acute Hypoxic Respiratory Insufficiency GARCIA, [...] home amlodipine 5mg CAD: non-obstructive CAD on [facility] 2018. - continue home aspirin 81mg [...] with the Nutrition plan outlined in the Shovel Handle Assembler s note. DVT prophylaxis with lovenox [...] mg Oral Daily Kelvin Pacheco MD, MBBS religion professor Transplant nephrology Internal Medicine Daily Progress Note Patient: George Styles, 1970, [id number] Physician: Yury Ozuna MD, PGY1, Pager #[phone], TM1 service Assessment/Plan: Updates: - continued diuresis [...] home amlodipine 5mg CAD: non-obstructive CAD on [facility] 2018. - continue home aspirin 81mg [...] with the Nutrition plan outlined in the Shovel Handle Assembler s note. DVT prophylaxis with lovenox [...] in resident note. Kelvin Pacheco MD, MBBS religion professor Transplant nephrology Pt known to kindergarten instructional assistant from previous admissions. Provided emotional and spiritual support. Patient shared about: family support, medical course Web Weaver provided: - Supportive presence - Active listening - Validation of feelings/emotions Patient encouraged to request a kindergarten instructional assistant as needed. Chaplains are available in-house 24 hours a day and 7 days a week. For urgent matters in [facility], please page [phone]. If the request is not urgent, please enter a consult. Consults are responded to within 24 hours. Senior Staff Web Weaverwilmer Singh Mdiv, [facility] Chimayo [phone] [email or web address] On-call TYLOR: call center dispatcher David: 22/06 Pager ,[facility], and Ross [phone] David Pager [phone] 01/18/24 1342 Clinical Encounter Type Visited With Patient Visit Type Introduction Pastoral Time Spent 15 min Referral Other (See Comment) (rounding) Spiritual Assessment Emotional Observation Coping well;Anxiety Hope Observation Specific hope focus Support Observation By Family Interventions Provided Active listening;Supportive presence Facilitated Verbalization of feelings;Identifying support system;Identifying Sources of spiritual well-being Explored Expectations;Treatment decisions Oim Consultant Education Oim Consultant Service Available Yes Educated Patient Outcomes [...] interaction. Name: Fidelina Alarcon RPH Phone #: [phone] Date/Time: 01/18/2024 9:56 AM Discharge Planning Patient [...] Yes Name and Contact information: Gian Styles ([phone]) Would you like to add additional adult [...] Team?: Yes Patient Care Team: Zuly Bruno BATCH AND FURNACE OPERATOR as PCP - General Evan White, DO [...] oxygen?: Yes Oxygen Provider and Contact : [employer] Liter-Flow?: 20/01- Order for oxygen use?: unknown [...] the patient on Anticoagulation? : No [id number] - [place] [address] - [address] [facility] [address] [facility] [address] Data Librarian Does the patient or media sales representative express financial concerns? : No [...] Plan 1. Identified self and role as Carcass Trimmer. 2. Confirmed and updated demographics and treatment team. 3. Carcass Trimmer will continue to follow with medical team for any other additional discharge needs. Kasandra DON RN [facility] [phone] *Please note I am float CM and work Thursday and Thursday every other week. Please call [phone] for assist in my absence. Internal Medicine Daily Progress Note Patient: George Styles, 1970, [id number] Physician: Yury Ozuna MD, PGY1, Pager #[phone], TE6 service Assessment/Plan: Updates: - continue diuresis with [...] home amlodipine 5mg CAD: non-obstructive CAD on [facility] 2018. - continue home aspirin 81mg [...] ordered 2D echo. Kevin Prince MD, MADISONN Policy Checker of Clinical Medicine [facility] [employer] [facility] documented in this encounter [facility] 01-23-2024 Plan of care note Patient has [...] Symptoms (Acute Pain): verbalization of pain descriptors [facility] 01-22-2024 Hospital Discharge instructions Arelis Mera MD [...] your doctor for further instructions. Please call [phone], Option 1 or [phone] to schedule your appointment with the Heart Failure Clinic. Arelis Mera MD - 01/22/2024 3:08 PM EST You can change your dressing 48 hours from the procedure The following attachments cannot be sent through Care Everywhere.Heart Failure: Avoiding Triggers (Pakistani)Heart Failure: Limiting Sodium (Pakistani)Pain and Pain Control ([facility]) (Pakistani)documented in this encounter [facility] 01-22-2024 Surgery Postoperative evaluation and management note George Styles ([id number]) PRE OPERATIVE DIAGNOSIS High output congestive heart failure [I50.83] POST OPERATIVE DIAGNOSIS Post-Op Diagnosis Codes: * High output congestive heart failure [I50.83] PROCEDURE PERFORMED Procedure(s) (LRB): LIGATION ANGIOACCESS AVF (Left) Resection of large aneurysmic vein PRIMARY CLOSURE Yes INTRAOPERATIVE FINDINGS No significant abnormalities SURGEON Surgeons and Role: * Jyoti Bryant MD, PhD - Primary ANESTHESIOLOGIST Anesthesiologist: Celena Tiwari MD; Kehinde Gutierrez MD STAFF ELECTRONIC WARFARE OFFICER: David Jasso APRN-STAFF ELECTRONIC WARFARE OFFICER Stagecraft Teacher Assisting: Mini Khan MD SURGICAL STAFF Scale Attendant: Zoila Lawrence RN Relief Scale Attendant: Marimar Saravia RN Relief Scrub: Briseyda Self Scrub Person: Cinda Mai RN Resident Assisting: Leonel Harris DO Fellow: Miki Mcgowan MD, MBBS COMPLICATIONS None ESTIMATED BLOOD LOSS Minimal SPECIMENS No specimen sent * No specimens in log * Jyoti Bryant MD, PhD January 22, 2024 1:34 PM [facility] Work Phone: 01-22-2024 Nurse Note Arrived to [...] nocturnally. A&Ox4. Nerve block left arm, elevated. [facility] 01-22-2024 Surgery Postoperative evaluation and management note [...] Axillary block. SURGEON(S): Jyoti Bryant MD, PHD ROLLER SHOP UTILITY WORKER: Mynor Fall MD ESTIMATED BLOOD LOSS: Minimal. [...] Jyoti Bryant MD, PHD ATTENDING SHANNON/Constanza JOB: [id number] DOC: [id number] [facility] 01-22-2024 Plan of care note Patient has [...] 1939 Plan Of Care Reviewed With: patient [facility] 01-20-2024 Consult note Associated Order (s): IP CONSULT TO SURGERY - TRANSPLANT (RENAL) Images from the original note were not included. TRANSPLANT SURGERY CONSULT NOTE: Consult: 01/20/2024, 4:03 PM Museum Preparator: Starla Morris MD Reason for Consult: Requesting Dr Carson Bryant for AVF revision/closure given new onset high output heart failure George Styles is a 53 y.o. male CURRENT HOSPITALIZATION LOS: Admit Date: 01/16/2024 [facility] Hospital LOS: 4 days George Styles is [...] DAY SURGERY MAIN OR KIDNEY TRANSPLANT W/O [place] NEPHRECTOMY N/A 04/12/2020 Laterality: N/A; Surgeon: [...] Studies: Labs-CBC: WBC/Hgb/Hct/Plts: 3.79/12.5/38.9/166 (01/20 611) Labs-Chem 7([facility]): Bun/Creat/Cl/CO2/Glucose: 15/1.12/105/28/88 (01/20 611) Na/K+/Phos/Mg/Ca: 141/3.8/--/1.6/-- (01/20 [...] seen and staffed with Dr. Mcgowan fellow stone polisher Thank you, Starla Morris MD Associated attestation - Jyoti Bryant MD, PhD - 01/22/2024 10:54 AM EST Beata Bryant MD, PhD, have independently seen and examined the patient, reviewed the labs, discussed the patient with the fellow/resident and agree with the note. [facility] Work Phone: 01-20-2024 Consult note Associated Order (s): IP CONSULT TO SURGERY - TRANSPLANT (RENAL) Images from the original note were not included. TRANSPLANT SURGERY CONSULT NOTE: Consult: 01/20/2024, 4:03 PM Museum Preparator: Starla Morris MD Reason for Consult: Requesting Dr Carson Bryant for AVF revision/closure given new onset high output heart failure George Styles is a 53 y.o. male CURRENT HOSPITALIZATION LOS: Admit Date: 01/16/2024 [facility] Hospital LOS: 4 days George Styles is [...] 04/12/2020 Laterality: N/A; Surgeon: LU Palma; Location: [facility] SAME DAY SURGERY MAIN OR KIDNEY TRANSPLANT W/O [place] NEPHRECTOMY N/A 04/12/2020 Laterality: N/A; Surgeon: LU Palma; Location: [facility] SAME DAY SURGERY MAIN OR OTHER [...] 17 g 17 g Oral Daily PRN Tiomthy Joseph MD Prochlorperazine (COMPAZINE) injection 10 mg [...] Studies: Labs-CBC: WBC/Hgb/Hct/Plts: 3.79/12.5/38.9/166 (01/20 611) Labs-Chem 7([facility]): Bun/Creat/Cl/CO2/Glucose: 15/1.12/105/28/88 (01/20 611) Na/K+/Phos/Mg/Ca: 141/3.8/--/1.6/-- (01/20 [...] seen and staffed with Dr. Mcgowan fellow stone polisher Thank you, Starla Morris MD Associated attestation - Jyoti Bryant MD, PhD - 01/22/2024 10:54 AM EST I. Jyoti Bryant MD, PhD, have independently seen and examined the patient, reviewed the labs, discussed the patient with the fellow/resident and agree with the note. Associated Order(s): IP CONSULT TO HEPATOBILIARY N [facility] Main Hepatology Consult WebExchange --> IM Consult Serv [facility] --> [facility] Main Hepatology consult [...] GUIDANCE 05/17/2022 Surgeon: Enzo Heart DO; Location: [facility] INTERVENTIONAL RADIOLOGY (VIR) LIVER TRANSPLANT, ORTHOTOPIC N/A 04/12/2020 Laterality: N/A; Surgeon: LU Palma; Location: [facility] SAME DAY SURGERY MAIN OR KIDNEY TRANSPLANT W/O [place] NEPHRECTOMY N/A 04/12/2020 Laterality: N/A; Surgeon: LU Palma; Location: [facility] SAME DAY SURGERY MAIN OR OTHER [...] (order for outpatient) Please SecureChat or Call ([phone]) for any questions. Await attending attestation for final recommendations. Hank Noel MD Division of Gastroenterology, Hepatology, and Nutrition Clinical Fellow, PGY-5 Pager: [phone] For urgent/stat calls or consults 5pm to 7am, please page the on-call GI fellow on QGenda. [facility]--> Internal Medicine--> Gastroenterology, Hepatology, & Nutrition--> 1st Call Janae Hatfield For urgent/stat calls or consults 7am to 5pm during the weekend, please page the on-call GI fellow on QGenda. [facility]--> Internal Medicine--> Gastroenterology, Hepatology, & Nutrition--> All Hep & East Wknd Cons Fel Day For follow up questions regarding this patient 7am to 5pm during the weekday, contact the Hepatology consults fellow or CARLOS A on QGenda. [facility]--> Internal Medicine--> Gastroenterology, Hepatology, & [...] MD, MSc documented in this encounter [facility] 01-19-2024 Nurse Note 01/19/24 [...] rest, 95-96% when talking/moving. Paulette Cordon RN [facility] 01-19-2024 Nurse Note Paged overnight coverage, Jasper Gastelum MD, via pager #[phone] Pt- Mark. Sarah Styles 1082. TM1. Was wondering if he can have his Melatonin order increased to 6mg. Per pt, he usually takes 8mg at home. -SAMI Duffy #[phone] Tati Charles RN [facility] 01-18-2024 Consult note Associated Order (s): IP [...] DAY SURGERY MAIN OR KIDNEY TRANSPLANT W/O [place] NEPHRECTOMY N/A 04/12/2020 Laterality: N/A; Surgeon: LU Palma; Location: [facility] SAME DAY SURGERY MAIN OR OTHER [...] (order for outpatient) Please SecureChat or Call ([phone]) for any questions. Await attending attestation for final recommendations. Hank Noel MD Division of Gastroenterology, Hepatology, and Nutrition Clinical Fellow, PGY-5 Pager: [phone] For urgent/stat calls or consults 5pm to 7am, please page the on-call GI fellow on Benjamin's Desk. [facility]--> Internal Medicine--> Gastroenterology, Hepatology, & Nutrition--> 1st Call Fel Alysia For urgent/stat calls or consults 7am to 5pm during the weekend, please page the on-call GI fellow on QGenda. [facility]--> Internal Medicine--> Gastroenterology, Hepatology, & Nutrition--> All Hep & East Wknd Cons Fel Day For follow up questions regarding this patient 7am to 5pm during the weekday, contact the Hepatology consults fellow or CARLOS A on [place]. [facility]--> Internal Medicine--> Gastroenterology, Hepatology, & [...] (order for outpatient) Michael Estrada MD, MSc [facility] Work Phone: 01-16-2024 Plan of care note Internal Medicine Daily Progress Note Patient: George Styles, 1970, [id number] Physician: Arelis Mera MD, PGY3, Pager #[phone], WZ6 service Assessment/Plan: George Styles is a 53 [...] home amlodipine 5mg CAD: non-obstructive CAD on [facility] 2018. - continue home aspirin 81mg [...] MD, on rounds. Signed, Arelis Mera MD [facility] 01-16-2024 Nurse Note Mr. Styles was admitted to [address] [place] [address]. On admission to R10, from outside facility a dual RN initial assessment of skin condition was performed by Izzy Gutierrez RN and Leroy Singleton RN. Skin Assessment: Skin within defined limits:Yes Jose Score: 20 Wound Vision Direct Chill Casting Operator images obtained: No LDA Added: No [...] room closest to nurses station when available. [facility] 01-16-2024 History and physical note Images from the original note were not included. Internal Medicine Admission History & Physical Patient: George Styles, 1970, [id number] Physician: Timothy Joseph MD, PGY1, Pager #[phone], TM 1 service Date of face to [...] DAY SURGERY MAIN OR KIDNEY TRANSPLANT W/O [place] NEPHRECTOMY N/A 04/12/2020 Laterality: N/A; Surgeon: LU Palma; Location: [facility] SAME DAY SURGERY MAIN OR OTHER [...] itraconazole Fax results to: Dr. White - [phone] Transplant Neph - [phone] Gabapentin 400 MG capsule Sig: Take 1 [...] Skin: No jaundice or rash Neuro: manager film 3-7, 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 Strength grossly [...] home amlodipine 5mg CAD: non-obstructive CAD on [facility] 2018. - continue home aspirin 81mg daily Gout: continue home allopurinol 200mg daily BPH: continue home flomax 0.4mg daily Complexity. Obesity Body mass index is 32.8 kg/m . - Follow with PCP for dietary and lifestyle modifications. Any conditions listed below are present on admission unless otherwise specified. . DVT prophylaxis with lovenox Disposition: admitted to [facility] Code status is Full Staffed with [...] Pierson, Luisa Steven, Renee Rivera, Daisha Max Floor Covering Printer: José Miguel Garnica All Txt: 04/13/2020 (Kidney), [...] results found for: CYCLOSPORIN , CYCLOSPORIN2 , [id number] , CYCLORAND No results found for: SIROLIMUS , RAPAMUNE , RAPAMYCIN No results found for: EVEROLIMUS , EVRLMSTRGH , EVERTRGHMANE , EVRLMSRND Lab Results Component Value Date TACROLIMUS 5.7 01/16/2024 TACROTRIDANIAMAN 5.2 01/08/2024 Initially, when received call from [...] request in chart. Kevin Prince MD Pager [phone] [facility] 01-16-2024 History and physical note Images from the original note were not included. Internal Medicine Admission History & Physical Patient: George Styles, 1970, [id number] Physician: Timothy Joseph MD, PGY1, Pager #[phone], TM 1 service Date of face to [...] DAY SURGERY MAIN OR KIDNEY TRANSPLANT W/O [place] NEPHRECTOMY N/A 04/12/2020 Laterality: N/A; Surgeon: [...] itraconazole Fax results to: Dr. White - [phone] Transplant Neph - [phone] Gabapentin 400 MG capsule Sig: Take 1 [...] Skin: No jaundice or rash Neuro: manager film 3-7, 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 Strength grossly [...] home amlodipine 5mg CAD: non-obstructive CAD on [facility] 2018. - continue home aspirin 81mg daily Gout: continue home allopurinol 200mg daily BPH: continue home flomax 0.4mg daily Complexity. Obesity Body mass index is 32.8 kg/m . - Follow with PCP for dietary and lifestyle modifications. Any conditions listed below are present on admission unless otherwise specified. . DVT prophylaxis with lovenox Disposition: admitted to [facility] Code status is Full Staffed with [...] Pierson, Luisa Steven, Renee Rivera, Daisha Max Floor Covering Printer: José Miguel Garnica All Txt: 04/13/2020 (Kidney), [...] results found for: CYCLOSPORIN , CYCLOSPORIN2 , [id number] , CYCLORAND No results found for: SIROLIMUS [...] request in chart. Kevin Prince MD Pager [phone] documented in this encounter [facility] 01-12-2024 History of Present illness Narrative [facility] [...] Name: Prograf 0.2 MG Contact Info: Specialty ([place]) [phone] [facility] [phone] [facility] [phone] David [phone] Bedside Delivery ([facility]) [phone] [facility] RX OUTREACH ADVANCED: Call Information: Date and Time of Contact: 01/25/2024 10:23 AM Method of Contact: By Phone Contact Type: Prescriptions Contactor: [facility] OP Contactee: Patient Contact Outcome: Left message (prograf myco) Contact Info: Specialty ([place]) [phone] [facility] [phone] [facility] [phone] David [phone] Bedside Delivery ([facility]) [phone] documented in this encounter [facility] 01-12-2024 History of Present illness Narrative [facility] [...] Prograf 0.2 MG Contact Info: Specialty ([place]) [phone] [facility] [phone] [facility] [phone] David [phone] Bedside Delivery ([facility]) [phone] [facility] RX OUTREACH ADVANCED: Call Information: Date and Time of Contact: 01/25/2024 10:23 AM Method of Contact: By Phone Contact Type: Prescriptions Contactor: [facility] Contactee: Patient Contact Outcome: Left message (prograf myco) Contact Info: Specialty ([place]) [phone] [facility] [phone] [facility] [phone] David [phone] Bedside Delivery ([facility]) [phone] [facility] RX OUTREACH ADVANCED: Call Information: Date and Time of Contact: 01/27/2024 10:19 AM Method of Contact: By Phone Contact Type: Prescriptions Contactor: [facility] Contactee: Patient Contact Outcome: Left message (myco prograf) Contact Info: Specialty ([place]) [phone] [facility] [phone] [facility] [phone] David [phone] Bedside Delivery ([facility]) [phone] documented in this encounter [facility] 01-12-2024 History of Present illness Narrative [facility] [...] Prograf 0.2 MG Contact Info: Specialty ([place]) [phone] [facility] [phone] [facility] [phone] David [phone] Bedside Delivery ([facility]) [phone] [facility] RX OUTREACH ADVANCED: Call Information: Date and Time of Contact: 01/25/2024 10:23 AM Method of Contact: By Phone Contact Type: Prescriptions Contactor: [facility] Contactee: Patient Contact Outcome: Left message (prograf myco) Contact Info: Specialty ([place]) [phone] [facility] [phone] [facility] [phone] David [phone] Bedside Delivery ([facility]) [phone] [facility] RX OUTREACH ADVANCED: Call Information: Date and Time of Contact: 01/27/2024 10:19 AM Method of Contact: By Phone Contact Type: Prescriptions Contactor: [facility] Contactee: Patient Contact Outcome: Left message (myco prograf) Contact Info: Specialty ([place]) [phone] [facility] [phone] [facility] [phone] David [phone] Bedside Delivery ([facility]) [phone] [facility] RX OUTREACH ADVANCED: Call Information: Date and Time of Contact: 02/01/2024 3:22 PM Contact Type: Prescriptions Contactor: [facility] Contactee: Patient Contact Outcome: Left message Shipping/Pickup: Medication Name: Mycophenolate 360mg and Prograf 0.2mg Pack Contact Info: Specialty ([place]) [phone] [facility] [phone] [facility] [phone] David [phone] Bedside Delivery ([facility]) [phone] documented in this encounter [facility] 01-06-2024 History of Present [...] 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) documented in this encounter [facility] 10-06-2023 History of Present illness Narrative [...] Prograf 0.2 MG Contact Info: Specialty ([place]) [phone] Jakob [phone] [facility] [phone] David [phone] Bedside Delivery ([facility]) [phone] [facility] RX OUTREACH ADVANCED: Call Information: Date and Time of Contact: 10/23/2023 2:00 PM Method of Contact: By Phone Contact Type: Prescriptions Contactor: [facility] Contactee: Patient Contact Outcome: Left message and Call back later Shipping/Pickup: Medication Name: Mycophenolate 360mg and Prograf 0.2mg Contact Info: Specialty ([place]) [phone] [facility] [phone] [facility] [phone] David [phone] Bedside Delivery ([facility]) [phone] documented in this encounter [facility] 10-13-2023 Miscellaneous Notes Pt discharged home with discharge [...] the oxygen during the night. pt will supervisor public message service his oxygen from [employer] supply, 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 This RN [...] Patient seen ambulating in the velazquez with BLOW DOWN OPERATOR. Patient was mildly short of breath on [...] & HR 114. Messaged Mainor Loomis, via [place] [employer] secure chat, Temp 100.8. His tylenol order [...] short period of time. 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 Episode [...] Critical Care Medicine Message Mainor Loomis, via [place] [employer] secure chat, Good evening, just an FYI, [...] short period of time. 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 This [...] [address] Loera here also (tumbler operator) Dr. Diaz aware of pt's increased oxygen [...] Medicine-Pediatrics, PGY-2 Mr. Styles was admitted to [address] [place] [address]. On admission to R10, from home a [...] when available. documented in this encounter [facility] 09-11-2023 History of Present illness Narrative Provided follow-up emotional and spiritual support. Patient shared about rosemary of discharge and looking forward to seeing family Web Weaver provided: - Supportive presence - Active listening - Validation of feelings/emotions Patient encouraged to request a kindergarten instructional assistant as needed. Chaplains are available in-house 24 hours a day and 7 days a week. For urgent matters in [facility], please page [phone]. If the request is not urgent, please enter a consult. Consults are responded to within 24 hours. Senior Staff Chaplain Angie Singh Mdiv, [facility] Chimayo [phone] [email or web address] 22/06 On-call Chimayo: [phone] 22/06 Pager ,[facility], and Brock Lewis David Pager [phone] 09/11/23 1430 Clinical Encounter Type Visited With Patient Visit Type Follow-up Pastoral Time Spent 15 min Referral Other (See Comment) (rounding) Spiritual Assessment Spiritual Observation Spirituality helpful Emotional Observation Coping well Hope Observation Specific hope focus Support Observation By Family Interventions Provided Active listening;Supportive presence Facilitated Verbalization of feelings Explored Expectations Oim Consultant Education Oim Consultant Service Available Yes Educated Patient Plan of Care Continue Visiting PRN Images from the original note were not included. [facility] ([facility]) Note: Non-Verbal Med Rec [facility] received the following discharge prescription(s): Total cost is $0. I have reviewed the Discharge Rx Reconciliation Report. The discharge prescription(s) will be delivered to the patient on 09/11/2023. Dimitrios Gurrola RPh,PharmD Specialty ([place]) [phone] [facility] [phone] [facility] Bedside Delivery [phone] [facility] [phone] [facility] Bedside Delivery [phone] David [phone] [facility] Bedside Delivery [phone] [place] [phone] [place] [phone] Internal Medicine Daily Progress Note Patient: George Styles, 1970, [id number] Physician: Evan Kelly MD, PGY-1, TM1 service Subjective/Interval History: Patient continues to require oxygen overnight for desaturations. With insurance limitations, only accepting agency to provide home oxygen backed out. After calling them to discuss, Lynn stated she would be willing to have patient drive to their facility to supervisor public message service supplies, however they close at 5pm. 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 His [place] kidney disease was noted to be presumed [...] losartan 50mg BID CAD: non-obstructive CAD on [facility] 2018. - continue home aspirin 81mg [...] 5.05 (H) 11/19/2018 Kevin Prince MD, SERA Policy Checker of Clinical Medicine [facility] Images from the original note were not included. Final Discharge Planning and Transportation Final Discharge Planning Discharge Disposition: Home Services at Discharge: Outpatient clinical services (ie: lab draws, transfusions, injectables) (Home Oxygen by [employer]) Selected Continued Care - Admitted Since 08/28/2023 Durable Medical Equipment Coordination complete. Service Provider Selected Services Address Phone Fax Patient Preferred [employer] Durable Medical Equipment [address] [facility] [address] Internal Comment last updated by Lora Lawrence RN 09/10/2023 1334 Correct contact information: [address] [place] [address] embossing calender operator- you do not need to call at discharge, I already notified the company. Addendum [phone] [employer] notified this CM they are out of patient's insurance area and will not be able to service this patient at time of discharge. Provider notified. Addendum [phone] Dr Kelly called [employer] spoke to Lynn and she said they are willing to accept patient if the patient would drive to the [employer] office and supervisor public message service the supplies. 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 Medication additions/changes: Lipitor on hold with itraconazole Items for clinic follow up: - Lipid follow up with atorvastatin on hold - Itraconazole level and, if needed, a dose adjustment Name: Matt Kramer RPh,PharmD Phone: [phone] Date/Time: 09/10/2023 11:33 AM This CM sent referral via [employer] for O2 concentrator to 4 agencies Start date today Timer set for 1330 [employer] [facility] [employer] Addendum 1332 One accepting company reserved in [employer] [address] [place] [address] Lora Colón RN, MSN, CCM, CMCN Clinical Carcass Trimmer- R10 Transplant #[phone] NUTRITION FOLLOW-UP Nutrition Plan of Care: 1. Continue current diet order. 2. No oral supplements warranted at this time. 3. Monitor for significant weight changes. Monitor GI, skin integrity. 4. Monitor and encourage po intakes with goal of average po being 75-100%. 5. traffic survey technician to follow. ___ Met with patient [...] time. Will continue to monitor. RHIANNON BirminghamR Pager:[phone] Transplant Infectious Disease (Team 3) Progress Note [...] sign off. Please Epic message or page [phone] with questions. 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 His [place] kidney disease was noted to be presumed [...] losartan 50mg BID CAD: non-obstructive CAD on [facility] 2018. - continue home aspirin 81mg [...] to follow. Please Epic message or page [phone] with questions. 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 His [place] kidney disease was noted to be presumed [...] losartan 50mg BID CAD: non-obstructive CAD on [facility] 2019. - continue home aspirin 81mg daily, holding atorvastatin 20mg daily Gout: continue home allopurinol 200mg daily BPH: continue home flomax 0.4mg daily DVT PPX: SQH Code Status: Full Code Disposition: Pending clinical course. Anticipate eventual discharge home. Discussed with team and attending, Kevin Prince MD, on rounds. 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 His [place] kidney disease was noted to be presumed [...] losartan 50mg BID CAD: non-obstructive CAD on [facility] 2018. - continue home aspirin 81mg [...] 5.05 (H) 11/19/2018 Kevin Prince MD, SERA Policy Checker of Clinical Medicine [facility] Transplant Infectious Disease (Team [...] to follow. Please Epic message or page [phone] with questions. Ann Marie Haskins MD PGY-4, Internal Medicine/Pediatrics Associated attestation - Evan White DO - 09/07/2023 2:11 PM EDT I saw and independently examined the patient on 09/07/2023. I agree with the history, examination, and medical decision making as noted by Dr. Downs. Generally doing well, did desat requiring oxygen and was a bit shaky when I saw him after he brushed his teeth. Feels like mobilizing secretions. Continue current antimicrobials but hopefully can get down to only PO and discharge in the next few days if he continues to improve. Please message via [place] [employer] secure chat or page with any questions or concerns. Evan White DO Policy Checker Division of Infectious Disease Transplant Infectious Disease [...] to follow. Please Epic message or page [phone] with questions. Evan White DO Transplant Infectious Diseases Images from the original note were not included. Pulmonary/Critical Care Medicine Daily Progress Note Reason for Consultation: bronch for infectious workup Requesting Physician: Dr. Prince CURRENT HOSPITALIZATION: Admit Date: 08/28/2023 [facility] Hospital LOS: 9 days Impression 1. Acute [...] and interpreted reviewed the radiographic data [facility] [facility] 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 His [place] kidney disease was noted to be presumed [...] losartan 50mg BID CAD: non-obstructive CAD on [facility] 2019. - continue home aspirin 81mg [...] 5.05 (H) 11/19/2018 Kevin Prince MD, MADISONN Policy Checker of Clinical Medicine [facility] Images from the original note were not included. Pulmonary/Critical Care Medicine Daily Progress Note Reason for Consultation: bronch for infectious workup Requesting Physician: Dr. Prince CURRENT HOSPITALIZATION: Admit Date: 08/28/2023 [facility] Hospital LOS: 8 days Impression 1. [...] and interpreted reviewed the radiographic data in [employer]. Acute Occupational Therapy Evaluation Prior to Admission [...] Assessment: Transfer Assessment: Sit to Stand Transfer Coffee Level: Sit->Stand: independent Skilled Intervention/Details: Sit->Stand: x1 from EOB, x1 from toilet Stand to Sit Transfer Coffee Level: Stand->Sit: independent Skilled Intervention/Details: Stand->Sit: x1 to toilet, x1 to EOB Functional Mobility: Functional Mobility Coffee Level: Functional Mobility/Gait: independent Ambulation Distance (Feet): 20 Skilled Intervention/Details - Functional Mobility/Gait: pt performed functional mobility to/from RR w/ no overt LOB Outcome Score(s): CURRENT [facility] Daily Activity Inpatient Short Form Putting on/Taking Off Lower Body Clothin - A Little Assistance Bathin - A Little Assistance Toiletin - A Little Assistance Putting on/Taking Off Upper Body Clothin - No Assistance Groomin - No Assistance Eatin - No Assistance CURRENT [facility] Activity Raw Score: 21 CURRENT [facility] Activity Functional Limitation/Modifier: 32.79% Currently [...] Intact Mobility Assessment: Supine to Sit Mobility Coffee Level: Supine->Sit: [facility] Bed Features/Set-up: Supine->Sit: Head of bed elevated Sit to Supine Mobility Coffee Level: Sit->Supine: not tested Balance: Sitting Balance [...] environment. Transfer Assessment: Sit to Stand Transfer Coffee Level: Sit->Stand: independent Skilled Intervention/Details: Sit->Stand: From EOB x 2 without difficulty. Stand to Sit Transfer Coffee Level: Stand->Sit: independent Assistive Device: Stand->Sit: armed chair Skilled Rationale: Verbal cues, Positioning Gait/Functional Mobility: Gait Assessment Coffee Level: Gait: stand-by assist Assistive Device: Gait: rollator Ambulation Distance (Feet): 400 Gait Deviations Identified: decreased grace, decreased gait speed Gait Skilled Rationale: verbal, upright posture, increase step length, increase foot clearance Skilled Intervention/Details - Gait: Reasonable foot clearnce without loss of balance but endorsing dyspnea as 6-7/10. 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 His [place] disease was noted to be presumed [...] losartan 50mg BID CAD: non-obstructive CAD on [facility] 2018. 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 His [place] kidney disease was noted to be presumed [...] losartan 50mg BID CAD: non-obstructive CAD on [facility] 2018. - continue home aspirin 81mg [...] P 450 system Kevin Prince MD, SERA Policy Checker of Clinical Medicine [facility] ERT Note: ERT called [...] MD, PhD Internal Medicine and Pediatrics PGY-3 [facility] Brief plan of care update: [...] - Consider saline neb - NRB-> HHF-> ZANEV Laurel Serrano MD, PhD Internal Medicine and Pediatrics PGY-3 [facility] Transplant Infectious Disease (Team 3) [...] to follow. Please Epic message or page [phone] with questions. 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 His [place] kidney disease was noted to be presumed [...] 2/2 renal function CAD: non-obstructive CAD on [facility] 2018. 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 His [place] kidney disease was noted to be presumed [...] 2/2 renal function CAD: non-obstructive CAD on [facility] 2018. - continue home aspirin 81mg [...] 5.05 (H) 11/19/2018 Kevin Prince MD, MADISONN Policy Checker of Clinical Medicine [facility] Progression of Care Note [...] Lora Colón RN, MSN, CCM, CMCN Clinical Carcass Trimmer- R10 Transplant #[phone] Made introductory visit with patient. Provided emotional and spiritual support. Patient shared about: - Source of Rosemary: Camping/Fishing/Family - Spirituality/Mu-Ism Affiliation: raised Roman Catholic - Family Support/history - Experience with illness/hospital course - Hopes for healing/future Web Weaver provided: - Supportive presence - Active listening - Validation of feelings/emotions - Pledged prayer Patient encouraged to request a kindergarten instructional assistant as needed. Chaplains are available in-house 24 hours a day and 7 days a week. For urgent matters in [facility], please page [phone]. If the request is not urgent, please enter a consult. Consults are responded to within 24 hours. Senior Staff Web Weaver Angie Singh Mdiv, BCC Kirk [phone] [email or web address] 22/06 On-call [place]: [phone] 22/06 Pager APOORVA, and Brock Maciel Pager [phone] 09/02/23 1116 Clinical Encounter Type Visited With Patient Visit Type Introduction Pastoral Time Spent 15 min Referral Other (See Comment) (rounding) Spiritual Assessment Spiritual Observation Spirituality helpful Emotional Observation Coping well Hope Observation Specific hope focus Support Observation By Family Interventions Provided Active listening;Supportive presence Facilitated Verbalization of feelings Explored Expectations Oim Consultant Education Oim Consultant Service Available Yes Educated Patient Outcomes Patient Outcomes Reduced distress Plan of Care Continue Visiting PRN NUTRITION RISK SCREENING NOTE Nutrition Plan of Care: 1. Continue current diet order. 2. No oral supplements warranted at this time. 3. Monitor for significant weight changes. Monitor GI and skin integrity. 4. Monitor and encourage po intakes with goal of average po being 100%. 5. traffic survey technician to follow. George Tray Styles is a 53 y.o. 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 His [place] kidney disease was noted to be presumed hepatorenal syndrome. His post-transplant course was noteworthy for nephrostomy tube (05/17/2022-09/10/2022) due to concern for ureteral stone. He presents as a direct admission for fever, cough, for infectious workup. Pt unavailable and information obtained via chart review Advertising Executive Screening Pt's appetite is good. Pt with [...] time. Will continue to monitor. 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 His [place] disease was noted to be presumed [...] 2/2 renal function CAD: non-obstructive CAD on [facility] 2018. - continue home aspirin 81mg [...] as outlined above. Kevin Prince MD Pager [phone] Summary: Pharmacy Med Rec Department of Pharmacy [...] Supply: 90 Refills: 0 Provider: Zuly Bruno BONDED STRAND OPERATOR Pharmacy: [address] Other Comments: Patient reported his Last Home Dose of mycophenolate & tacrolimus was on 08/28/23 at 0900. Patient reported he was taking Bactrim and benzonatate for fevers and a cough he was having. Please feel free to contact me with any further questions. Name: Heidy Chatman Phone #: [phone] Date/Time: 09/01/2023 2:01 PM Time Spent: 15 minutes Associated attestation - Matt Kramer RPh,PharmJenna - 09/01/2023 2:28 PM EDT Department of Pharmacy Admission Medication Reconciliation Note Patient: George Styles Room/Bed: 1062/A I have reviewed the home medication list with the Steel Detailer. All changes to the home medication list have been updated in IHIS. Updated LOSS CONTROL MANAGER Med List: Prior to Admission Medications [...] questions. Name: Matt Kramer RPh,PharmD Phone #: [phone] Date/Time: 09/01/2023 2:28 PM Transplant Infectious Disease [...] crypto antigen, EBV PCR -follow pending histo, efirxs39 labs These recommendations were discussed with the primary team. Transplant ID (Team 3) will continue to follow. Please Epic message or page [phone] with questions. 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 His [place] disease was noted to be presumed [...] 2/2 renal function CAD: non-obstructive CAD on [facility] 2018. - continue home aspirin 81mg [...] 5.05 (H) 11/19/2018 Kevin Prince MD, SERA Policy Checker of Clinical Medicine [facility] Discharge Planning Patient Assessment [...] Yes Name and Contact information: Gian Styles ([phone]) Reviewed and Updated in Demographics? : Yes [...] patient on Anticoagulation? : No [id number] [place] [address] - [address] [place] [id number] Data Librarian Does the patient or media sales representative express financial concerns? : No [...] Plan 1. Identified self and role as Carcass Trimmer. 2. Confirmed and updated demographics and treatment team. 3. Carcass Trimmer will continue to follow with medical team/pt for any other additional discharge needs. aKsandra DON RN [facility] [phone] *Please note I am float CM and work Thursday and Thursday every other week. Please call [phone] for assist in my absence. 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 His [place] disease was noted to be presumed [...] 2/2 renal function CAD: non-obstructive CAD on [facility] 2018. 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 His [place] disease was noted to be presumed [...] losartan 50mg BID CAD: non-obstructive CAD on [facility] 2019. - continue home aspirin 81mg daily, atorvastatin 20mg daily Gout: continue home allopurinol 200mg daily BPH: continue home flomax 0.4mg daily DVT PPX: SQH Code Status: Full Code Disposition: Pending clinical course. Anticipate eventual discharge home. Discussed with team and attending, Kevin Prince MD, on rounds. Signed, Laurel Serrano MD, PhD documented in this encounter [facility] 09-10-2023 Hospital Discharge instructions Laurel Serraon MD, PhD - 09/10/2023 12:22 PM EDT [...] a sleep doctor. You will need to supervisor public message service the oxygen concentrator when you leave the [...] to try to move every day. Laurel Serrnao MD, PhD - 09/10/2023 12:23 PM EDT Resume your previous diet. Try to eat a good variety of foods and focus on healthy foods. documented in this encounter [facility] 09-01-2023 Consult note Associated Order (s): IP CONSULT TO PULMONOLOGY Pulmonary Medicine Inpatient Consultation Reason for Consultation: bronch for infectious workup Requesting Physician: Dr. Prince Pulmonary Attending Physician: Dr. Diaz CURRENT HOSPITALIZATION: Admit Date: 08/28/2023 [facility] Hospital LOS: 4 days Impression/Recommendations: George Styles [...] Recommendations: - Plan to bronch tomorrow morning. NPO@[place], order placed - would repeat HIV, last [...] short period of time. 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 Other histories as documented in [...] ill contacts. [facility] [place] [facility] REVIEW [...] GUIDANCE 05/17/2022 Surgeon: Enzo Heart DO; Location: [facility] INTERVENTIONAL RADIOLOGY (VIR) LIVER TRANSPLANT, ORTHOTOPIC N/A 04/12/2020 Laterality: N/A; Surgeon: LU Palma; Location: [facility] SAME DAY SURGERY MAIN OR KIDNEY TRANSPLANT W/O [place] NEPHRECTOMY N/A 04/12/2020 Laterality: N/A; Surgeon: LU Palma; Location: [facility] SAME DAY SURGERY MAIN OR OTHER [...] Alamo MD I can be reached via [place] [employer] secure message (preferred) or Pager #[phone] documented in this encounter [facility] 08-28-2023 History and physical note Images from the original note were not included. Internal Medicine Admission History & Physical Patient: George Styles, 1970, [id number] Physician: Aric Turner MD, PGY1, Pager #[phone], TM service Date of face to face [...] So he went to see the transplant industrial seamstress. He was found elevated Cr and asked [...] Appetite is ok now. Urine is about 3513-9701 ml every day. 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 His [place] disease was noted to be presumed [...] Urinary histoplasmosis - PJP, candid PCR - Museum Preparator transplant ID Acute Kidney Injury with Kidney [...] losartan 50mg BID CAD: non-obstructive CAD on [facility] 2018. - continue aspirin 81mg daily, [...] Pierson, Luisa Steven, Renee Rivera, Daisha Max Floor Covering Printer: José Miguel Garnica All Txt: 04/13/2020 (Kidney), [...] results found for: CYCLOSPORIN , CYCLOSPORIN2 , [id number] , CYCLORAND No results found for: SIROLIMUS [...] Rest as above. Kevin Prince MD Pager [phone] documented in this encounter [facility] 08-28-2023 History of Present illness Narrative Images from the original note were not included. 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 Floor Covering Printer: Anayeli Burt Date of Liver Transplant: 04/13/2020 (Kidney), 04/13/2020 (Liver) 3 years 4 months post Liver/Kidney Transplant Primary Disease: Hypertensive Nephrosclerosis Transplant Dubbing Machine Operator: Erma Roe/ Daisha Max Primary [...] and faMOTIdine === None Specified Preferred Lab: [facility] Change in lab frequency / new [...] every 12 hours. ADDITIONAL INFORMATION: None Specified, [id number] [place] [address] - [address] [facility] [address] [facility] [address] [facility] [address] [place] [address] [id number] [place] [address] [facility] [address] [facility] [address] [facility] [address] [facility] [address], [address] [place] [address] ROS and SCREEN: Chest Pain: negative Cough: [...] PHYSICIAN: I saw George Styles at the [facility] on 08/28/2023. Patient is a 53 y.o. 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 His [place] kidney disease was noted to be presumed [...] GUIDANCE 05/17/2022 Surgeon: Enzo Heart DO; Location: [facility] INTERVENTIONAL RADIOLOGY (VIR) LIVER TRANSPLANT, ORTHOTOPIC N/A 04/12/2020 Laterality: N/A; Surgeon: LU Palma; Location: [facility] SAME DAY SURGERY MAIN OR KIDNEY TRANSPLANT W/O [place] NEPHRECTOMY N/A 04/12/2020 Laterality: N/A; Surgeon: LU Palma; Location: [facility] SAME DAY SURGERY MAIN OR OTHER [...] you have any questions. Steve Munoz MD emergency room rn Division of Nephrology [facility] documented in this encounter [facility] 08-28-2023 Instructions Mainor Busby RN - 08/28/2023 2:15 PM EDT - Admission for fevers, cough, and night sweats documented in this encounter [facility] 08-19-2023 History of Present illness Narrative [facility]: Call Information: Date and Time of Contact: 08/19/2023 2:52 PM Method of Contact: By Phone Contact Type: Prescriptions Contactor: [facility] Contactee: Patient Shipping/Pickup: Medicare B Refill?: No Medication Name: Tacro 0.5mg Delivery Method: Air Delivery Location: Home Signature Required: No Mailing/Pickup Date: 08/25/2023 Shipping Address: [address] [place] [address] [address] Contact Info: Specialty ([place]) [phone] Jakob [phone] [facility] [facility] [phone] David [phone] Bedside Delivery ([facility]) [phone] documented in this encounter [facility] 06-12-2023 History of Present illness Narrative Images from the original note were not included. George Styles is a 53 y.o. 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 No longer follows with a local industrial seamstress. History of Present Illness: Since George was [...] and lab results. Rebeca Gutierrez MSN, RN, HYDROGEN CELL TENDER-BC, CCTN Certified Nurse Practitioner [facility] [address] [facility] [address] documented in this encounter [facility] 06-12-2023 Instructions JEANNA Hess - 06/12/2023 3:00 PM EDT No change in immunosuppression. documented in this encounter [facility] 06-10-2023 History of Present illness Narrative [facility] RX OUTREACH ADVANCED: Call Information: Method of Contact: By Phone Contact Type: Prescriptions Contactor: [facility] Contactee: Patient Contact Outcome: Left message Shipping/Pickup: Medication Name: Mycophenolate sod 180 mg Contact Info: Specialty ([place]) [phone] [facility] [phone] [facility] [phone] David [phone] Bedside Delivery ([facility]) [phone] [facility] RX OUTREACH ADVANCED: Call Information: Date and Time of Contact: 06/12/2023 9:43 AM Method of Contact: By Phone Contact Type: Prescriptions Contactor: [facility] Contactee: Patient Contact Outcome: Left message and Follow-up Shipping/Pickup: Medicare B Refill?: No Medication Name: Myco 180 Contact Info: Specialty ([place]) [phone] [facility] [phone] [facility] [phone] David [phone] Bedside Delivery ([facility]) [phone] [facility] RX OUTREACH ADVANCED: Call Information: Date and Time of Contact: 06/12/2023 10:08 AM Method of Contact: By Phone Contact Type: Prescriptions Contactor: [facility] Contactee: Patient Shipping/Pickup: Medicare B Refill?: No Medication Name: Mycophenolate 180mg DR Delivery Method: Air Delivery Location: Home Signature Required: No Mailing/Pickup Date: 06/17/2023 Shipping Address: [address] [address] Contact Info: Specialty ([place]) [phone] [facility] [phone] [facility] [phone] David [phone] Bedside Delivery ([facility]) [phone] documented in this encounter [facility] 03-12-2023 History of Present illness Narrative [facility] RX OUTREACH ADVANCED: Call Information: Date and Time of Contact: 03/12/2023 10:34 AM Method of Contact: By Phone Contact Type: Prescriptions Contactor: [facility] Contactee: Patient Shipping/Pickup: Medicare B Refill?: No Medication Name: Mycophenoloate sod 360 mg prednisone 5mg Delivery Method: Air Delivery Location: Home Signature Required: No Mailing/Pickup Date: 03/16/2023 Shipping Address: [address] [place] [address] Contact Info: Specialty ([place]) [phone] [facility] [phone] [facility] [phone] David [phone] Bedside Delivery ([facility]) [phone] [facility] RX OUTREACH ADVANCED: Call Information: [...] Required: No Mailing/Pickup Date: 03/19/2023 Shipping Address: [address] [place] [address] [address] Contact Info: Specialty ([place]) [phone] [facility] [phone] [facility] [phone] David [phone] Bedside Delivery ([facility]) [phone] documented in this encounter [facility] 03-10-2023 History of Present illness Narrative [facility] RX OUTREACH ADVANCED: Call Information: Date and Time of Contact: 03/10/2023 12:00 PM Method of Contact: By Phone Contact Type: Prescriptions Contactor: [facility] Contactee: Patient Contact Outcome: Left message and Call back later Shipping/Pickup: Medication Name: Mycophenolate ; Tacrolimus Contact Info: Specialty ([place]) [phone] [facility] [phone] [facility] [phone] David [phone] Bedside Delivery ([facility]) [phone] documented in this encounter [facility] 03-10-2023 History of Present illness Narrative [facility] RX OUTREACH ADVANCED: Call Information: Date and Time of Contact: 03/10/2023 12:00 PM Method of Contact: By Phone Contact Type: Prescriptions Contactor: [facility] Contactee: Patient Contact Outcome: Left message and Call back later Shipping/Pickup: Medication Name: Mycophenolate ; Tacrolimus Contact Info: Specialty ([place]) [phone] [facility] [phone] [facility] [phone] David [phone] Bedside Delivery ([facility]) [phone] [facility] RX OUTREACH ADVANCED: Call Information: Date and Time of Contact: 03/12/2023 10:32 AM Method of Contact: By Phone Contact Type: Prescriptions Contactor: [facility] Contactee: Patient Contact Outcome: Left message Shipping/Pickup: Medication Name: Mycophenolate sodium (MYFORTIC) 180 MG Tab tacrolimus 0.5 mg Contact Info: Specialty ([place]) [phone] Jakob [phone] [facility] [phone] David [phone] Bedside Delivery ([facility]) [phone] documented in this encounter [facility] 01-16-2023 History of Present illness Narrative -Referring [...] GUIDANCE 05/17/2022 Surgeon: Enzo Heart DO; Location: [facility] INTERVENTIONAL RADIOLOGY (VIR) LIVER TRANSPLANT, ORTHOTOPIC N/A 04/12/2020 Laterality: N/A; Surgeon: LU Palma; Location: [facility] SAME DAY SURGERY MAIN OR KIDNEY TRANSPLANT W/O [place] NEPHRECTOMY N/A 04/12/2020 Laterality: N/A; Surgeon: LU Palma; Location: [facility] SAME DAY SURGERY MAIN OR OTHER [...] 0.3 12/29/2022 Explant Pathology Pathologic Diagnosis A. [place] liver, orthotopic liver transplant resection (1458 gram): [...] A/P with IV contrast (06/27/2022): 1. Both [place] kidneys are atrophic with improvement in right-sided [...] frequent nighttime urination, etc). Daisha Max DO Policy Checker Gastroenterology, Hepatology and Nutrition [facility] Pager: [phone] Images from the original note were not included. 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 Floor Covering Printer: Anayeli Burt Date of Liver Transplant: 04/13/2020 (Kidney), 04/13/2020 (Liver) 2 years, 8 months post Liver/Kidney Transplant Primary Disease: Hypertensive Nephrosclerosis Transplant Dubbing Machine Operator: Steve Munoz Primary Care physician: Zuly Bruno [...] levels: No results found for: CYCLOSPORIN, CYCLOSPORIN2, [id number], CYCLORAND No components found for: CYCLOSPORINE, 2HR [...] hours. ADDITIONAL INFORMATION: None Specified [id number] [place] [address] - [address] [facility] [address] [facility] [address] [facility] [address] [facility] [facility] [address] [facility][id number] - [place] [id number] - [address] [facility] [address] [facility] [address] [facility] Jakob [address], [address] [facility] [address] ROS and SCREEN: Chest Pain: negative Cough: [...] ADDRESS WITH PHYSICIAN: documented in this encounter [facility] 01-16-2023 Instructions José Miguel Garnica RN - 01/16/2023 9:40 AM EST - Labs Every 2 months - Discuss night time urination with your PCP - Schedule Colonoscopy through PCP - Follow up in 1 year documented in this encounter [facility] 09-10-2022 History of Present illness Narrative UROLOGY [...] and no hydronephrosis. Some reflux up the [place] right ureter but good drainage of both transplant and [place] ureter to the bladder. Nephrostomy tube was [...] transplant, orthotopic (N/A, 04/12/2020); kidney transplant w/o [place] nephrectomy (N/A, 04/12/2020); and placement nephrostomy catheter [...] Negative for , diarrhea, constipation Genitourinary: See JACKSON Neurological: Negative for headaches. Lymph/Heme: Negative for [...] x 4, Normal strength. No edema. Skin: [place], warm, and dry. There are no rashes [...] and no hydronephrosis. Some reflux up the [place] right ureter but good drainage of both transplant and [place] ureter to the bladder. Nephrostomy tube was [...] MD 09/10/22 documented in this encounter [facility] 07-07-2022 History of Present [...] assisted off the table and escorted to temporary receptionist where they made a follow up. [...] male with a DDRT to the [facility] in 2019. Nephrostomy tube placed 05/17/22 [...] to have transplant ureter with anastomosis to [place] right ureter. Nephrostogram without filling defects and no hydronephrosis. Some reflux up the [place] right ureter but good drainage of both transplant and [place] ureter to the bladder. Nephrostomy tube was removed without issue. Patient does have some sensation of incomplete bladder emptying and occasional sensation in his right flank. PVR today was 33cc. Will re-evaluate urinary symptoms at next appointment. --continue Flomax --RTC in one month flow flow/PVR/IPSS Patient to call with any additional questions or concerns. Ryan Yepez MD 07/07/22 documented in this encounter [facility] 06-27-2022 History of Present [...] transplant, orthotopic (N/A, 04/12/2020); kidney transplant w/o [place] nephrectomy (N/A, 04/12/2020); and placement nephrostomy catheter [...] Negative for , diarrhea, constipation Genitourinary: See JACKSON Neurological: Negative for headaches. Lymph/Heme: Negative for [...] x 4, Normal strength. No edema. Skin: [place], warm, and dry. 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 Nephrostomy tube placed 05/17 [...] bag if needed. documented in this encounter [facility] 06-27-2022 History and physical note Patient was evaluated in clinic as a nurse visit. Please refer to Rena Brewster's note. [facility] Work Phone: 06-27-2022 History and physical note Patient was evaluated in clinic as a nurse visit. Please refer to Rena Brewster's note. documented in this encounter [facility] 06-27-2022 History of Present illness Narrative TEACHING REGARDING TX NEPH COMPLETED-NEPH TUBE SITE DRY AND INTACT-CLEAR YELLOW URINE IN THE BAG-INSTRUCTED ABOUT FLUSHING, BAG CHANGING ETC. NUMEROUS QUESTIONS ASKED AND ANSWERED-VERBALIZED UNDERSTANDING documented in this encounter [facility] 06-18-2022 Note EXAMINATION: CT ABD/ PELVIS WO [...] mass or enlargement. KIDNEYS: Marked atrophy of [place] kidneys. Transplant right pelvic kidney with percutaneous [...] MÓNICA JIMENEZ Date: 2022-06-18 13:53 [facility] 06-12-2022 Instructions Anayeli Christianson RN - 06/12/2022 3:21 PM EDT Do not take apart/disrupt nephrostomy tube system. Call Interventional Radiology and/or on-call transplant nurse [phone] for instruction if need to flush (clot or decreased flow). Take cipro 500mg, one tablet, twice per day for 14 days documented in this encounter [facility] 06-12-2022 History of Present illness Narrative Images from the original note were not included. 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 Percutaneous Neph Tube placed Images from the original note were not included. Nursing Assessment In Clinic (see Clinic Prep Sheet for additional information) Patient is accompanied to clinic today by: self Did patient require a wheelchair or medical transport for appointment: no Did restaurant front manager confirm current address and insurance information [...] LAB AND PHARMACY: None Specified [facility] [place] [address] - [address] [facility] [address] [facility] [address] [facility] [place] [facility] [address] [facility] [facility] [address] [id number] [place] [address] [address] [facility] [address] [place] [address] [facility] [address], [address] [place] [address] ROS and SCREEN: Chest Pain: negative Cough: negative SOB: negative Abd Pain: negative Nausea: positive Vomiting: negative Diarrhea: negative Constipation: negative Dysuria: positive Edema: negative Tremors: negative Headaches: negative Wound issues: negative Pt has neph tube w clear yellow urine. States he had a small clot that he dislodged QUESTIONS OR CONCERNS TO ADDRESS WITH PHYSICIAN: I saw George Styles at the [facility] on 06/12/2022. Patient is a 52 y.o. 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 His [place] kidney disease was noted to be presumed [...] GUIDANCE 05/17/2022 Surgeon: Enzo Heart DO; Location: [facility] INTERVENTIONAL RADIOLOGY (VIR) LIVER TRANSPLANT, ORTHOTOPIC N/A 04/12/2020 Laterality: N/A; Surgeon: LU Palma; Location: [facility] SAME DAY SURGERY MAIN OR KIDNEY TRANSPLANT W/O [place] NEPHRECTOMY N/A 04/12/2020 Laterality: N/A; Surgeon: LU Palma; Location: [facility] SAME DAY SURGERY MAIN OR OTHER [...] you have any questions. Steve Munoz MD emergency room rn Division of Nephrology [facility] documented in this encounter [facility] 06-04-2022 Instructions TATI GROVE - 06/04/2022 11:04 AM EDT Thank you for joining us for your neph tube follow up. We recommend routine exchange every 8-10 weeks. Please reach out at [phone] when it is time to set your next routine exchange. Thank you IR clinic documented in this encounter [facility] 06-04-2022 History of Present illness Narrative Met [...] exchange. Verbalized understanding. documented in this encounter [facility] 05-20-2022 Note Formatting of this n ote [...] time of his discharge. Leon Cook RN [facility] 05-20-2022 Miscellaneous Notes Patient discharged. AVS printed [...] provide teaching before his discharge Leon RN #[id number] Leon Cook RN Afternoon assessment completed at [...] Interdisciplinary Rounds/Family Conf Outcome: Ongoing Discussed with [facility] re: possible urine culture performed at their facility. However, based on urinalysis completed at that time, which was only notable for hematuria, culture was not performed and sample no longer feasible for culture. Liam Julian MD Internal Medicine/Pediatrics, PGY-3 2002: [place] DirectIS message sent to Dr Justyn Wen, regarding patient passing a small kidney stone, about the size of pea. notified. Stone left in strainer in pt bathroom. 499: [place] DirectIS message sent to Dr Justyn Wen, regarding [...] with questions. Evan Byrd MD Urology, PGY-2 #[id number] I certify that this patient requires inpatient [...] care explained choices provided On admission to [facility], a dual RN initial assessment of skin condition was performed by Kallie Lorenzana RN and Sheri Arguelles RN. Skin Assessment: WDL Jsoe Score: 20 LDA Added:N Kallie Lorenzana RN documented in this encounter [facility] 05-20-2022 Note Formatting of this n ote [...] discharge/transition of care. Outcome: Adequate for Discharge [facility] 05-20-2022 Note Formatting of this n ote might be different from the original. Anne Dlilard MD R10 Rm 1006 [address] George Please let's have a clear order on how the nephrostomy site dressing need to be changed when the patient goes home so we provide teaching before his discharge Leon GALLARDO #[id number] Leon Cook RN [facility] 05-20-2022 History of Present illness Narrative Images from the original note were not included. [facility] Note: [facility] received the following discharge prescription(s): Medication reconciliation was completed with comparison to discharge reconciliation report. The prescription(s) will be delivered to the patient's bedside on 05/20/22. Total cost is $0. Yanira Her RPh,PharmD Specialty ([place]) [phone] [facility] [phone] [facility] [phone] David [phone] [place] [phone] Bedside Delivery ([facility]) [phone] Attending I saw George Styles at the [facility] on 05/19/2022. I saw and independently [...] injection 320 mg/mL for IR PRN Enzo Heart DO 15 mL [...] Daily Progress Note Patient: George Styles, 1970, [id number] Physician: Liam Julian MD, PGY-3, Pager #[phone], [email or web address] Subjective/Interval History: No acute events overnight. Passed [...] Saldana MD Division of Hospital Medicine Pager [phone] Attending I saw George Styles at the [facility] on 05/18/2022. 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 Daya (Nunu) Jeff Saldana MD Division of Hospital Medicine Pager [phone] Internal Medicine Daily Progress Note Patient: George Styles, 1970, [id number] Physician: Nishant Gamez MD, PGY2, Pager #[phone], [email or web address] Subjective/Interval History: Worsening creatinine this morning with [...] MD (Peggy) Division of Hospital Medicine Pager [phone] Attending I saw George Styles at the [facility] on 05/17/2022. I saw and independently [...] of chart and discussion with treatment team, Carcass Trimmer has not identified needs at this time. [...] follow. Introduced self and role of the kindergarten instructional assistant to patient. Provided emotional and spiritual support and the patient responded by sharing their experience and discussed the following: - Spirituality/Mu-Ism Affiliation: As a kid attended Roman Catholic restorationist but not a strong identity now - Family support - pt's brothers live close by Web Weaver provided: - Supportive presence - Active listening - Validation of feelings/emotions Patient encouraged to request a kindergarten instructional assistant as needed. Chaplains are available in-house 24 hours a day and 7 days a week. For urgent matters in [facility], please page [phone]. If the request is not urgent, please enter a consult. Consults are responded to within 24 hours. Angie Singh Mdiv, [facility] Burn Unit and Transplant [place] [address] Web Weaver [facility] Web Weaver [place] [phone] [email or web address] [facility] Pager [phone] 22/06 Pager ,[facility], and Brock 1500 22/06 David Pager [phone] 05/16/22 1129 Clinical Encounter Type Visited With Patient Visit Type Introduction Pastoral Time Spent 15 min Referral Other (See Comment) (Rounding) Spiritual Assessment Spiritual Observation Spirituality helpful;Identifies as (see comment) (Hindu) Emotional Observation Coping well Hope Observation Hopeful and accepting Support Observation By Family Interventions Provided Active listening;Supportive presence Facilitated Verbalization of feelings;Sharing of life story;Identifying support system Explored Expectations Oim Consultant Education Oim Consultant Service Available Yes Educated Patient Outcomes Patient Outcomes Articulated purpose/meaning Plan of Care Continue Visiting PRN Internal Medicine Daily Progress Note Patient: George Styles, 1970, [id number] Physician: Nishant Gamez MD, PGY2, Pager #[phone], [email or web address] Subjective/Interval History: Overall feeling okay this morning. 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 [...] Supervision Transfer Assessment: Sit to Stand Transfer Coffee Level: Sit->Stand: independent Skilled Intervention/Details: Sit->Stand: x1 from EOB Stand to Sit Transfer Coffee Level: Stand->Sit: supervision Assistive Device: Stand->Sit: armed chair Skilled Rationale: Controlled descent for sitting, Verbal cues Gait/Functional Mobility: Gait Assessment Coffee Level: Gait: supervision Assistive Device: Gait: gait belt Gait Distance (feet): 200 Gait Deviations Identified: decreased grace, decreased step length, decreased stride length Gait Skilled Rationale: verbal, upright posture Skilled Intervention/Details - Gait: Pt with steady gait without LOB or complaints of SOB. Stairs: Stairs Assessment Coffee Level: Stair Negotiation: stand-by assist Assistive Device: Stair Negotiation: gait belt, left rail (ascending) Number of stairs: 9 Stairs Skilled Rationale: reciprocal pattern Outcome Score(s): [facility]RENT [facility] Basic Mobility Inpatient Short Form Turning over in bed: 4 - No Assistance Sitting/standing from chair: 4 - No Assistance Moving from lying on back to sittin - No Assistance Moving to and from bed to chair: 4 - No Assistance Walk in hospital room: 3 - A Little Assistance Climbing 3-5 steps with a railin - A Little Assistance [facility]RENT [facility] Mobility Raw Score: 22 CURRENT [facility] Mobility Functional Limitation/Modifier: 20.91% Currently [...] reported no concerns with discharging home with [place] support. 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 IADL History IADLs: independent Primary Language: Pakistani Home Management Skills: independent Meal Prep Responsibility: [...] Assessment: Transfer Assessment: Sit to Stand Transfer Coffee Level: Sit->Stand: independent Skilled Rationale: Cues for increased safety Skilled Intervention/Details: Sit->Stand: x1 EOB Stand to Sit Transfer Coffee Level: Stand->Sit: supervision Assistive Device: Stand->Sit: gait belt, armed chair Skilled Rationale: Verbal cues, Controlled descent for sitting, Cues for increased safety Skilled Intervention/Details: Stand->Sit: cues for hand placement and controlled descent Functional Mobility: Functional Mobility Coffee Level: Functional Mobility/Gait: stand-by assist Assistive Device: Functional Mobility/Gait: gait belt Functional Mobility Distance: Distance needed for limited community mobility Functional Mobility Deficits: Activity tolerance, Balance, Decreased step length, Generalized weakness Functional Mobility Skilled Rationale: Verbal cues, Facilitate postural control Skilled Intervention/Details - Functional Mobility/Gait: cues for upright posture Outcome Score(s): CURRENT [facility] Daily Activity Inpatient Short Form Putting on/Taking Off Lower Body Clothin - A Little Assistance Bathin - A Little Assistance Toiletin - A Little Assistance Putting on/Taking Off Upper Body Clothin - No Assistance Groomin - No Assistance Eatin - No Assistance [facility] Activity Raw Score: 21 CURRENT [facility] Activity Functional Limitation/Modifier: 32.79% Currently [...] DAY SURGERY MAIN OR KIDNEY TRANSPLANT W/O [place] NEPHRECTOMY N/A 04/12/2020 Laterality: N/A; Surgeon: LU Palma; Location: [facility] SAME DAY SURGERY MAIN OR OTHER [...] by: Mel Norman OT, OTR/L License #: [id number] pager # [phone] 05/20/2022 Upon discontinuation of Acute Care Occupational Therapy Services or patient discharge from the hospital this note represents the current Occupational Therapy Discharge Summary. documented in this encounter [facility] 05-20-2022 Hospital course Narrative Discharge Summary Name: [...] at [facility]. As you may know, George Styles, is [...] Saldana MD Division of Hospital Medicine p: [phone] f: [phone] CONSULTS DURING ADMISSION: IP CONSULT TO SURGERY - UROLOGY IP CONSULT TO NEPHROLOGY - TRANSPLANT (MEDICINE) IP CONSULT TO INTERVENTIONAL RADIOLOGY IP CONSULT TO PHYSICAL THERAPY IP CONSULT TO OCCUPATIONAL THERAPY IP CONSULT TO PHARMACY BEDSIDE DISCHARGE MED DELIVERY IMAGING / PROCEDURES / RESULTS: Should you require further information or copies of results or reports please contact Medical Information Management @ [phone] LABS AT TIME OF DISCHARGE: Lab Results [...] AT DISCHARGE: Zuly Kiana [address] [facility] / [place] [address] MEDICATIONS: Discharge Orders CT ABDOMEN/PELVIS WITHOUT CONTRAST [...] CAPS Generic drug: docusate Follow-up: Zuly Bruno, BATCH AND FURNACE OPERATOR [address] [facility] [address] Schedule an appointment as soon as possible for a visit Follow-up appointment with your, primary care physician within 7-10 days, after discharge. [address] [facility] [phone] Follow up The department of urology will call you with a follow up appointment. LU Ovalle [address] 11[address] Floor [facility] [address] Follow up Please make a follow up appointment with Dr. Munoz's office. Upcoming Appointments (up to five)-Some appointments for Medical Center outpatient clinics or diagnostic testing locations are not displayed below Provider Department Dept Phone 06/04/2022 10:40 AM IR [facility] MACI[facility] Interventional Radiology Clinic [phone] 06/27/2022 1:30 PM [facility] Department of Radiology Arrive at: Arrive to First Floor Registration Desk [phone] 06/27/2022 2:40 PM Ryan Yepez [facility] [place] [facility] Arrive at: Arrive to 2nd Floor, Registration [address] 10/31/2022 1:00 PM Steve Munoz [facility] [phone] 01/16/2023 9:40 AM TRANSPLANT HEPATOLOGY 3, [facility] [phone] Associated attestation - Daya Saldana MD - [...] Saldana MD Division of Hospital Medicine Pager [phone] documented in this encounter [facility] 05-20-2022 Hospital Discharge instructions [...] be changed by Interventional Radiology. Please call [phone] to schedule this appointment and with any questions or concerns you may have regarding the nephrostomy tube. If you have questions or concerns, please call Interventional Radiology at SOMEONE FROM INTERVENTIONAL RADIOLOGY WILL CALL YOU FOR A FOLLOW UP IN THE IR CLINIC Giulia Cavazos RN Nurse Coordinator Interventional Radiology Interventional Radiology Outpatient scheduling documented in this encounter [facility] 05-19-2022 Note Formatting of [...] Ongoing Goal: Interdisciplinary Rounds/Family Conf Outcome: Ongoing [facility] 05-19-2022 Note Formatting of this n ote might be different from the original. Discussed with [facility] re: possible urine culture performed at their facility. However, based on urinalysis completed at that time, which was only notable for hematuria, culture was not performed and sample no longer feasible for culture. Liam Julian MD Internal Medicine/Pediatrics, PGY-3 [facility] 05-18-2022 Note Formatting of this n ote might be different from the original. 2003: IHIS message sent to Dr Justyn Wen, regarding patient passing a small kidney stone, about the size of pea. MD notified. Stone left in strainer in pt bathroom. 0500: IHIS message sent to Dr Justyn Wen, regarding pt BP 174/77. [facility] 05-18-2022 Note Formatting of this n ote [...] outcomes by discharge/transition of care. Outcome: Ongoing [facility] 05-18-2022 Note Formatting of this n ote [...] becomes hyponatremic, NS should instead be used. [facility] Work Phone: 05-18-2022 Note Formatting of this n ote might be different from the original. IHIS chat sent to Dr Tray Quintana, regarding pt BP 190/86. Pt complaining of pain at site of neph tube. PRN pain medication given per order parameters. Pt denies any other symptoms at this time. notified and aware. [facility] 05-17-2022 Note Formatting of this n ote might be different from the original. At 0900, I rounded with Dr. Gamez and Dr. Saldana. At that time I checked Mr. Styles's vital signs. His pulse oximeter was low and he was tachypneic. Verbal order at bedside to put nasal cannula on starting at 2liters oxygen and to provide incentive spirometer. [facility] 05-17-2022 Note Formatting of this n ote might be different from the original. Interventional Radiology procedure completed with IR Attending Dr. Heart / Dr. Le of percutaneous right nephrostomy tube placement transplant kidney 10.2 Fr Griffin acosta Pt tolerated procedure with moderate sedation local numbing agent . Transported to inpatient after phase I recovery. Post procedure orders in place. [facility] 05-16-2022 Note Formatting of this n ote might be different from the original. At 1530, I text paged Kaitlynn Gomez MD that patient has only had 25ml urine output in matias this afternoon. [facility] 05-16-2022 Note Formatting of this n ote [...] with questions. Evan Byrd MD Urology, PGY-2 #[id number] [facility] Work Phone: 05-16-2022 Note Formatting of this n ote might be different from the original. I certify that this patient requires inpatient services at this time. I anticipate the expected length of stay will include at least two midnights. Inpatient services are due to the following medical concerns Obstructive kidney stone. Plans for post hospitalization care will be discharge to home. [facility] 05-16-2022 Consult note Associated Order (s): IP CONSULT TO NEPHROLOGY - TRANSPLANT (MEDICINE) I saw George Styles at the [facility] on 05/16/2022. Reason for Consultation: kidney [...] he was given flomax and sent home. [place] better but noticed more pain and decreased [...] best assessment and recommendations. Maxi Pringle MD [facility] Work Phone: 05-16-2022 Consult note Associated Order (s): IP CONSULT TO NEPHROLOGY - TRANSPLANT (MEDICINE) I saw George Styles at the [facility] on 05/16/2022. Reason for Consultation: kidney [...] he was given flomax and sent home. [place] better but noticed more pain and decreased [...] states he went to his local ED [facility] and he was put on Flomax and he did improve. Pt states last night he was unable to void with severe right sided abd pain. Pt states nausea and no vomiting or fevers. Pt states he went back to [facility] at 0100 and they placed a [...] orthotopic (N/A, 04/12/2020); and kidney transplant w/o [place] nephrectomy (N/A, 04/12/2020). 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 The [place] kidneys are progressively atrophic bilaterally compared to [...] of 06/14/2020 are no longer present. The [place] distal right ureter is decompressed beyond this [...] with surgical history for renal graft and [place] right urinary drainage, as a discrete ureteroneocystostomy is not identified, and the graft may be draining via a ureteroureterostomy. Urology consultation recommended. 3. The [place] kidneys are bilaterally atrophic, with right renal sinus calcifications consistent with nonobstructing right [place] renal calculi up to 6 mm. Normal [...] PGY-3, Department of Urologic Surgery Pager #: [phone] Associated attestation - Ryan Yepez MD - [...] continue flomax documented in this encounter [facility] 05-16-2022 Note Formatting of [...] supported Trust Relationship/Rapport: care explained choices provided [facility] 05-16-2022 Note Formatting of this n ote might be different from the original. On admission to [facility], a dual RN initial assessment of skin condition was performed by Kallie Lorenzana RN and Sheri Arguelles RN. Skin Assessment: WDL Jose Score: 20 LDA Added:N Kallie Lorenzana RN [facility] 05-15-2022 Emergency department Note Report given to Kallie RN at 10 [facility] 05-15-2022 Emergency department Note Report given to Kallie RN at 10RH Bladder scan with Dr Villatoro at bedside, [...] DAY SURGERY MAIN OR KIDNEY TRANSPLANT W/O [place] NEPHRECTOMY N/A 04/12/2020 Laterality: N/A; Surgeon: [...] Schneider MD Resident 05/15/222030 Pt arrives from [facility] with kidney stones. Pt states he had right lower abd pain and right flank pain with blood in his urine since Thursday. Pt states he went to his local ED [facility] and he was put on Flomax and he did improve. Pt states last night he was unable to void with severe right sided abd pain. Pt states nausea and no vomiting or fevers. Pt states he went back to [facility] at 0100 and they placed a matias and CT scan completed and multiple kidney stones noted. [facility] as he had liver and kidney transplant in 03/2020. documented in this encounter [facility] 05-15-2022 History and physical note Internal Medicine Admission History & Physical Patient: George Styles, 1970, [id number] Physician: Evan Bennett MD, PGY1, Pager #[phone], GM 4 service Date of face to [...] 04/12/2020 Laterality: N/A; Surgeon: LU Palma; Location: [facility] SAME DAY SURGERY MAIN OR KIDNEY TRANSPLANT W/O [place] NEPHRECTOMY N/A 04/12/2020 Laterality: N/A; Surgeon: LU Palma; Location: [facility] SAME DAY SURGERY MAIN OR OTHER [...] Skin: No jaundice or rash Neuro: manager film 3-7, 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 Strength grossly [...] dilation of the calyces may represent narrowing/partial [id number] ofthe ureter and mild hydronephrosis or sequela [...] MD Division of Hospital Medicine [phone] [facility] Work Phone: 05-15-2022 History and physical note Internal Medicine Admission History & Physical Patient: George Styles, 1970, [id number] Physician: Evan Bennett MD, PGY1, Pager #[phone], GM 4 service Date of face to [...] 04/12/2020 Laterality: N/A; Surgeon: LU Palma; Location: [facility] SAME DAY SURGERY MAIN OR KIDNEY TRANSPLANT W/O [place] NEPHRECTOMY N/A 04/12/2020 Laterality: N/A; Surgeon: LU Palma; Location: [facility] SAME DAY SURGERY MAIN OR OTHER [...] Skin: No jaundice or rash Neuro: manager film 3-7, 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 Strength grossly [...] dilation of the calyces may represent narrowing/partial [id number] ofthe ureter and mild hydronephrosis or sequela [...] Medicine [id number] documented in this encounter [facility] 05-15-2022 Emergency department Note Bladder scan with Dr Villatoro at bedside, 14ml noted [facility] 05-15-2022 Consult note Associated [...] states he went to his local ED [facility] and he was put on Flomax and he did improve. Pt states last night he was unable to void with severe right sided abd pain. Pt states nausea and no vomiting or fevers. Pt states he went back to [facility] at 0100 and they placed a [...] orthotopic (N/A, 04/12/2020); and kidney transplant w/o [place] nephrectomy (N/A, 04/12/2020). 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 The [place] kidneys are progressively atrophic bilaterally compared to [...] of 06/14/2020 are no longer present. The [place] distal right ureter is decompressed beyond this [...] with surgical history for renal graft and [place] right urinary drainage, as a discrete ureteroneocystostomy is not identified, and the graft may be draining via a ureteroureterostomy. Urology consultation recommended. 3. The [place] kidneys are bilaterally atrophic, with right renal sinus calcifications consistent with nonobstructing right [place] renal calculi up to 6 mm. Normal [...] PGY-3, Department of Urologic Surgery Pager #: [phone] Associated attestation - Ryan Yepez MD - [...] before surgical intervention --may continue flomax [facility] Work Phone: 05-15-2022 Emergency department Note Advised Dr Schneider concerning no urine output via matias catheter. [facility] 05-15-2022 Physician Emergency department Note ED Attending George Styles has a past medical history of Acute renal failure, CAD (coronary artery disease), Cirrhosis, Dialysis patient, End stage renal disease (06/01/2018), Essential hypertension, benign, Hepatic encephalopathy, History of blood transfusion, and Liver cirrhosis. Presents with a chief complaint of kidney stone and diagnosed Thursday and was sent home with [facility]. He went back to that ED and [...] plan of care. Gian Villatoro MD 05/15/222003 [facility] Work Phone: 05-15-[address] Schneider made aware of only 30 ml urine via matias since arrival to room. [facility] 05-15-2022 Physician Emergency department Note dEPARTMENT of Emergency Medicine CHIEF COMPLAINT Kidney Stone HPI George Styles is a 52 y.o. male with past medical history of alcoholic cirrhosis, CKD status post kidney transplant and liver transplant on May 20 who presents for obstructive kidney stone. Patient [...] DAY SURGERY MAIN OR KIDNEY TRANSPLANT W/O [place] NEPHRECTOMY N/A 04/12/2020 Laterality: N/A; Surgeon: [...] any incorrections. Matt Schneider MD Resident 05/15/222030 [facility] Work Phone: 05-15-2022 Emergency department Note Pt arrives from [facility] with kidney stones. Pt states he had right lower abd pain and right flank pain with blood in his urine since Thursday. Pt states he went to his local ED [facility] and he was put on Flomax and he did improve. Pt states last night he was unable to void with severe right sided abd pain. Pt states nausea and no vomiting or fevers. Pt states he went back to [facility] at 0100 and they placed a matias and CT scan completed and multiple kidney stones noted. [facility] as he had liver and kidney transplant in 03/2020. [facility] 03-14-2022 History of Present illness Narrative [facility] [...] No Mailing/Pickup Date: 03/17/2022 Shipping Address: [address] [place] [address] [address] Contact Info: Specialty ([place]) [phone] Jakob [phone] [facility] [phone] David [phone] Bedside Delivery ([facility]) [phone] documented in this encounter [facility] 06-14-2021 History of Present illness Narrative [facility] [...] 05/16/22 Goal Progress: Satisfactory Contact Info: Specialty ([place]) [phone] [facility] [phone] [facility] [phone] [facility] [phone] Bedside Delivery ([facility]) [phone] [facility]RE[facility]: Call Information: Date [...] Home Signature Required: Yes Shipping Address: [address] [place] [address] [address] [facility] [address] Contact Info: Specialty ([place]) [phone] Jakob [phone] [facility] [phone] [facility] [phone] Bedside Delivery ([facility]) [phone] documented in this encounter [facility] Evaluation + Plan note Future Appointments Appointment Date:11/22/2024 09:00:00 AM Scheduled Provider:JONATHAN Almodovar APRN, [place] Location:[facility] Appointment Type:URO Office Visit [facility] Evaluation note Diagnosis FAYE (acute kidney injury)- Primary Acute kidney failure, unspecified Hydronephrosis due to obstruction of ureteral orifice Hydronephrosis due to obstruction of ureteral orifice FAYE (acute kidney injury) Acute kidney failure, unspecified [facility] Diagnosis Follow-up exam- Primary Unspecified follow-up examination [facility] Diagnosis Immunosuppressed status- Primary Unspecified disorder of immune mechanism Kidney replaced by transplant Liver replaced by transplant Abnormal blood chemistry Other abnormal blood chemistry High risk medication use Encounter for long-term (current) use of other medications Aftercare following organ transplant Liver transplant recipient [facility] Diagnosis Attention to nephrostomy- Primary [facility] Diagnosis Other hydronephrosis- Primary [facility] Diagnosis FAYE (acute kidney injury) Acute kidney failure, unspecified [facility] Other hydronephrosis- Primary -donor kidney transplant recipient Kidney replaced by transplant [facility] Diagnosis Other hydronephrosis [facility] Diagnosis 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) Encounter for screening for malignant neoplasm of prostate Special screening for malignant neoplasm of prostate [facility] Diagnosis Abnormal blood chemistry- Primary Other abnormal blood chemistry Liver transplant recipient Kidney replaced by transplant Immunosuppressed status Unspecified disorder of immune mechanism Aftercare following organ transplant [facility] Diagnosis Kidney replaced by transplant- Primary [facility] Diagnosis Immunosuppressed status- Primary Unspecified disorder of immune mechanism Kidney replaced by transplant Aftercare following organ transplant High risk medication use Encounter for long-term (current) use of other medications Other general symptoms and signs Abnormal blood chemistry Other abnormal blood chemistry Hypertension secondary to other renal disorders [facility] Diagnosis Histoplasmosis- Primary Histoplasmosis, unspecified without [...] Fever Fever, unspecified [facility] Diagnosis Bilateral lower extremity edema- Primary 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) Atherosclerosis 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) Atherosclerosis of aorta Obesity (BMI 30-39.9) DARLENE (obstructive sleep apnea) Obstructive sleep apnea (adult) (pediatric) Tremor Abnormal involuntary movements Immunocompromised (CMS/HCC) Unspecified immunity deficiency Primary hypertension (CMS/HCC) Unspecified essential hypertension Shortness of breath documented in this encounter [facility] HealthcareEvaluation note* Diagnosis Pleural [...] specified pre-operative examination [facility] Diagnosis Heart failure, diastolic, acute- Primary Acute diastolic heart failure [facility] Diagnosis Liver lesion- Primary Other specified disorders of liver Liver transplant recipient High risk medication use Encounter for long-term (current) use of other medications Therapeutic drug monitoring Encounter for therapeutic drug monitoring Immunocompromised Unspecified immunity deficiency [facility] Diagnosis Kidney replaced by transplant- Primary [facility] Narrative No data available for this section [facility] progress note No data available for this section [facility] reason for referral (narrative)* Consultation (Routine) - New Request Specialty Diagnoses / Procedures Referred By Contac t Referred To Contact Interventional Radiology Diagnoses Hydronephrosis due to obstruction of ureteral orifice Daya Saldana MD [address] [place] [address] Referral ID Status Reason Start Date Expiration Date V isits Requested Visits Authorized [id number] New Request 05/18/2022 06/12/2023 1 1 * Radiology (Emergency) - New Request Specialty Diagnoses / Procedures Referred By Contac t Referred To Contact Procedures US RENAL TRANSPLANT SCAN Daya Saldana MD [address] [place] [address] Referral ID Status Reason Start Date Expiration Date V isits Requested Visits Authorized [id number] New Request 05/16/2022 06/10/2023 1 1 * Consultation (Routine) - New Request Specialty Diagnoses / Procedures Referred By Contac t Referred To Contact Urology Diagnoses FAYE (acute kidney injury) Ryan Yepez MD [address] [place] [address] Referral ID Status Reason Start Date Expiration Date V isits Requested Visits Authorized [id number] New Request 05/16/2022 06/10/2023 1 1 * MRI/CAT Scan (Routine) - New Request Specialty Diagnoses / Procedures Referred By Contac t Referred To Contact Diagnoses FAYE (acute kidney injury) Procedures CT ABDOMEN/PELVIS WITHOUT CONTRAST CHG CT SCAN,ABDOMENT AND PELVIS,W/O CONTRAST Ryan Yepez MD [address] [facility] [address] [place] [address] Referral ID Status Reason Start Date Expiration Date V isits Requested Visits Authorized [id number] New Request 05/16/2022 06/10/2023 1 1 * (Routine) - Pending Review Specialty Diagnoses / Procedures Referred By Contac t Referred To Contact Procedures PLATELET MONITORING PER PROTOCOL Daya Saldana MD [address] [place] [address] Referral ID Status Reason Start Date Expiration Date V isits Requested Visits Authorized [id number] Pending Review 05/15/2022 06/09/2023 1 1 * (Routine) - Pending Review Specialty Diagnoses / Procedures Referred By Contac t Referred To Contact Procedures DVT/VTE RISK ASSESSMENT Daya Saldana MD [address] [place] [address] Referral ID Status Reason Start Date Expiration Date V isits Requested Visits Authorized [id number] Pending Review 05/15/2022 06/09/2023 1 1 * (Routine) Specialty Diagnoses / Procedures Referred By Contac t Referred To Contact Evan Bennett MD [address] [place] [phone] Referral ID Status Reason Start Date Expiration Date Visits Re quested Visits Authorized * (Routine) Specialty Diagnoses / Procedures Referred By Contac t Referred To Contact Evan Bennett MD [address] [place] [phone] Referral ID Status Reason Start Date Expiration Date Visits Re quested Visits [facility]ized [facility]arr[facility] Consultation (Routine) - New Request Specialty Diagnoses / Procedures Referred By Contac t Referred To Contact Sleep Medicine Diagnoses Hypoxia Kevin Prince MD [address] [place] [phone] Referral ID Status Reason Start Date Expiration Date V isits Requested Visits Authorized [id number] New Request 09/10/2023 10/04/2024 1 1 * MRI/CAT Scan (Routine) - New Request Specialty Diagnoses / Procedures Referred By Contac t Referred To Contact Diagnoses Histoplasmosis Procedures CT CHEST WITHOUT CONTRAST CHG DIAGNOSTIC COMPUTED TOMOGRAPHY THORAX W/O Kevin Zarate MD [address] [place] [phone] Referral ID Status Reason Start Date Expiration Date V isits Requested Visits Authorized [id number] New Request 09/10/2023 10/04/2024 1 1 * Radiology (Routine) - New Request Specialty Diagnoses / Procedures Referred By Contac t Referred To Contact Procedures US RENAL TRANSPLANT SCAN Steve Munoz MBBS [address] [place] [address] Referral ID Status Reason Start Date Expiration Date V isits Requested Visits Authorized [id number] New Request 08/29/2023 09/22/2024 1 1 * (Routine) - New Request Specialty Diagnoses / Procedures Referred By Contac t Referred To Contact Procedures PLATELET MONITORING PER PROTOCOL Steve Munoz MBBS [address] [place] [address] Referral ID Status Reason Start Date Expiration Date V isits Requested Visits Authorized [id number] New Request 08/28/2023 09/21/2024 1 1 * (Routine) - New Request Specialty Diagnoses / Procedures Referred By Contac t Referred To Contact Procedures DVT/VTE RISK ASSESSMENT Steve Munoz MBBS [address] [place] [address] Referral ID Status Reason Start Date Expiration Date V isits Requested Visits Authorized [id number] New Request 08/28/2023 09/21/2024 1 1 [facility] Instructions * Patient Instructions - Christin Elizabeth APRN-ROB - 10/19/2018 9:21 AM EST You should take an extra dose of the lactulose as needed so that you are having 3-4 bowel movementsdaily. You should start the chemical dependency counseling as soon as possible. If you have questions, call the transplant social science analyst Fidelina Pierson. in this encounter* Patient Instructions - Sophie Cary RN - 10/12/2018 11:09 AM EST You have been seen in the pre-transplant evaluation clinic by Dr. Restrepo and Sophie Cary. Sophie Cary is your pre-legal billing coordinator she can be reached at [phone] at any time for questions during the pre-transplant process. Your evaluation is complete pendin. Abdominal ultrasound. 2. 6 minute walk test. 3. Cardiology evaluation. Additionally, your acoustic sensor operator will recommend testing to screen for [...] after you have satisfied requirements dictated by [employer]. Once your testing is complete, we [...] ___ Other Name MRN * Christin Elizabeth, HYDROGEN CELL TENDER-BATCH AND FURNACE OPERATOR - 10/19/2018 9:00 AM EST Formatting of this note may be different from the original. History of Present Illness: Chief Complaint Patient presents with Follow-up Cirrhosis George Styles is a 48 y.o. male who presents to the [facility] today regarding his diagnosis/chief complaint(s) of Cirrhosis secondary to ETOH, with ESRD follows with Dr. Orr. Currently undergoing evaluation for liver/kidney transplant. Has been seen in transplant clinic for eval. Still undergoing pre testing. Diagnosed in April 2018. Last drink was immediately prior to hospital admission in [place] for ACLF. Hospital course notable for ARF [...] (human immunodeficiency virus infection); Hyperlipidemia; Hyperthyroidism; Hypothyroidism; NV (myocardial infarction); Migraine; DARLENE (obstructive sleep apnea); [...] kidney transplant evaluation. Pt was AOx3. Transplant Head Of Business Development role/function was explained and reviewed. The patient was informed that the results of this assessment will be shared with the referring provider and the transplant team. The patient verbalized understanding of this information. The [facility] psychosocial assessment consent form has been explained to patient and has been signed. Pt is completing this evaluation with brother (David) in the Outpatient setting. [facility] educated pt on the benefits of completing/filing advanced directives and resources were offered. Pt identifies with [employer] yazdanism. Pt confirms being a [place] Citizen. Pt.'s primary language is Pakistani. Pt confirms the ability to read,write, and understand Pakistani. Pt denies potential donors. Donor cards and [...] has valid license, does not regularly drive (BATCH AND FURNACE OPERATOR recommends that he not to drive). [...] as well as referred him to pre legal billing coordinator. Pt and support demonstrated moderate understanding [...] Patient's brother David is a self employed ballet company artistic director. Additional support includes his other brother Tyshawn and his Mary live fifteen minutes away. Of note Mary is a lumpia wrapper maker for a [employer] is available to assist parts assembler. He confirms being comfortable asking for help. [...] in 2010, he was employed by the [employer]. He has access to SSDI payment (SSDI starts in November) in regards to financial means pre/ post-transplant. Pt confirms (meeting bills currently, ) being able to meet daily needs. Patient's brother asking for additional information on community resources, food stamps and [place]. Refer him to pt.'s dialysis center and the [facility]. Hereports access to Medicaid. Pt. denies [...] court ordered treatment after a DUI charge [facility], court ordered treatment in 2001 and in [...] by patient from his primary medical provider- [facility] patient was noted as attending an [...] He was provided with local AOD resources, [facility] AOD informational packet. Pt was [...] new visit Date of service: 10/12/2018 -Referring planishing hammer operator for today's consult: -Primary Care Provider: Zuly [...] - Mitral Valve Stenosis MV Peak E [place] 1.19 m/s MV Peak A [place] 0.83 [...] EST Timed up and go 9.9 seconds Wildlife Enforcement Major Left 52.8 pounds Right 44.9 pounds Waist circ 38.5 inches * Sophie Cary RN - 10/12/2018 10:00 AM EST Formatting of this note may be different from the original. Patient George Styles ([id number]), accompanied by his brother, was seen on [...] any further questions. Sophie GUERINN, RN Liver Floor Covering Printer Etiology: ETOH HCC: No ETOH: Yes Last [...] Yovani Orr MD [address] [address] Status Reason Specialty Diagnoses / Procedures Referred By Contact Referred To Contact New Request Diagnoses Cirrhosis of liver with ascites, unspecified hepatic cirrhosis type Procedures US ABDOMEN RUQ/LIVER/GB Yovani Orr MD [address] [address] Specialty Diagnoses / Procedures Referred By Contac t Referred To Contact Diagnoses FAYE (acute kidney injury) Procedures CT ABDOMEN/PELVIS WITHOUT CONTRAST CHG CT SCAN,ABDOMENT AND PELVIS,W/O CONTRAST Central Scheduling [address] [place] [address] Referral ID Status Reason Start Date Expiration Date V isits Requested Visits Authorized [id number] Pending Review 05/16/2022 06/10/2023 1 1 Specialty Diagnoses / Procedures Referred By Contac t Referred To Contact Diagnoses Other hydronephrosis Procedures FLUORO IMAGING FOR UROLOGY Ryan Yepez MD [address] [facility] [address] [place] [address] Referral ID Status Reason Start Date Expiration Date V isits Requested Visits Authorized [id number] New Request 07/07/2022 08/01/2023 1 1 Specialty Diagnoses / Procedures Referred By Contac t Referred To Contact Procedures DIRECT ADMIT REQUEST Steve Munoz, JOSHBS [address] [place] [address] Referral ID Status Reason Start Date Expiration Date V isits Requested Visits Authorized [id number] New Request 08/28/2023 09/21/2024 1 1 Specialty Diagnoses / Procedures Referred By Contac t Referred To Contact Radiology Diagnoses DARLENE (obstructive sleep apnea) Primary hypertension (CMS/HCC) Bilateral lower extremity edema Shortness of breath Procedures Echocardiogram 2D complete Zuly Bruno NP [address] [place] [address] Referral ID Status Reason Start Date Expiration Date Visits Requested Visits Authorized [id number] Incomplete Perform Procedure 01/06/2024 07/04/2024 1 1 Specialty Diagnoses / Procedures Referred By Contac t Referred To Contact Procedures US IMAGING REGIONAL ANESTHESIA Kehinde Gutierrez MD [address] [place] [address] Referral ID Status Reason Start Date Expiration Date V isits Requested Visits Authorized [id number] New Request 01/22/2024 02/15/2025 1 1 Specialty Diagnoses / Procedures Referred By Contac t Referred To Contact Cardiovascular Medicine Diagnoses Heart failure, diastolic, acute Kelvin Pacheco MD, MBBS [address] [place] [address] Referral ID Status Reason Start Date Expiration Date V isits Requested Visits Authorized [id number] New Request 01/20/2024 02/13/2025 1 1 Specialty Diagnoses / Procedures Referred By Contac t Referred To Contact Procedures US ABDOMEN LIVER DOPPLER US ABDOMEN LIVER TRANSPLANT DOPPLER Timothy Joseph MD [address] [facility] [address] [place] [address] Referral ID Status Reason Start Date Expiration Date V isits Requested Visits Authorized [id number] New Request 01/16/2024 02/09/2025 1 1 Specialty Diagnoses / Procedures Referred By Contac t Referred To Contact Procedures DVT/VTE RISK ASSESSMENT Kelvin Pacheco MD, MBBS [address] [place], [place] [id number] Referral ID Status Reason Start Date Expiration Date V isits Requested Visits Authorized [id number] New Request 01/16/2024 02/09/2025 1 1 Specialty Diagnoses / Procedures Referred By Contac t Referred To Contact Procedures PLATELET MONITORING PER PROTOCOL Kelvin Pacheco MD, MBBS [address] [place] [address] Referral ID Status Reason Start Date Expiration Date V isits Requested Visits Authorized [id number] New Request 01/16/2024 02/09/2025 1 1 Referral ID Status Reason Start Date Expiration Date V isits Requested Visits Authorized [id number] New Request 01/16/2024 02/09/2025 1 1 Specialty Diagnoses / Procedures Referred By Contac t Referred To Contact Procedures ECG Kelvin Pacheco MD, [facility] [address] [place] [address] Referral ID Status Reason Start Date Expiration Date V isits Requested Visits Authorized [id number] New Request 01/16/2024 02/09/2025 1 1 Specialty Diagnoses / Procedures Referred By Contac t Referred To Contact Diagnoses Liver lesion Procedures MRI ABDOMEN WITH AND WITHOUT CONTRAST CHG MRI ABDOMEN W/O & W/CONTRAST MATERIAL Daisha Max, DO [address] [place], [place] [id number] Referral ID Status Reason Start Date Expiration Date V isits Requested Visits Authorized [id number] New Request 06/17/2024 07/12/2025 1 1 Advance Directives Documents on File Type Date Recorded 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 Worker Expl anation Advance Directives and Living Will Power of Production Mechanic Latest Code Status on File Code Status [...] Yovani Orr MD [address] [address] Status Reason Specialty Diagnoses / Procedures Referre d By Contact Referred To Contact Denied Diagnoses Alcoholic cirrhosis, unspecified whether ascites present Pre-transplant evaluation for liver transplant Procedures MRI ABDOMEN WITH CONTRAST WI MRI, ABDOMEN W/CONTRAST Yovani Orr MD [address] [address] Reason Comments Liver Recipient Evaluation Status Reason Specialty Diagnoses / Procedures Referred By Contact Referred To Contact New Request Transplant / Transplant Surgery Procedures PRE NEW PATIENT Yovani Orr MD [address] [address] Alfredito Restrepo MD [address] [place] [address] Reason Comments Reschedule Reason Comments Outside Medical Records Request Reason Comments Social Work Follow-up Reason Comments Kidney Stone Specialty Diagnoses / Procedures Referred By Deni edwards Referred To Contact Diagnoses Obstructing kidney stone, s/p kidney transplant 2019 Daya Saldana MD [address] [place] [address] [facility] [address] [place] [address] Referral ID Status Reason Start Date Expiration Date Visits Re quested Visits Authorized [id number] 1 1 Reason Comments Follow-up Reason Comments Kidney Recipient Follow-up Liver Recipient Follow-up Reason Comments Consult Reason Comments New Patient Hospital follow up Specialty Diagnoses / Procedures Referred By Deni edwards Referred To Contact Urology Diagnoses hosp fu with [address] prior Procedures NEW TO DOC/RET PATIENT Zuly Bruno, ROB [address] [place] [address] Ryan Yepez MD [address] [facility] [address] [place] [address] Referral ID Status Reason Start Date Expiration Date Visits Re quested Visits Authorized [id number] Closed 06/27/2022 07/22/2023 1 1 Specialty Diagnoses / Procedures Referred By Contac t Referred To Contact Diagnoses FAYE (acute kidney injury) Procedures CT ABDOMEN/PELVIS WITHOUT CONTRAST CHG CT SCAN,ABDOMENT AND PELVIS,W/O CONTRAST Central Scheduling [address] [place] [phone] Referral ID Status Reason Start Date Expiration Date V isits Requested Visits Authorized [id number] Pending Review 05/16/2022 06/10/2023 1 1 Reason Comments Follow-up Specialty Diagnoses / Procedures Referred By Contac t Referred To Contact Urology Diagnoses 1 week fu post NT clamp Procedures RETURN PATIENT Zuly Bruno CNP [address] [place] [address] Ryan Yepez MD [address] [facility] [address] [place] [address] Referral ID Status Reason Start Date Expiration Date Visits Requested Visits Authorized [id number] Authorized - [facility] 07/07/2022 08/01/2023 2 2 Specialty Diagnoses / Procedures Referred By Contac t Referred To Contact Diagnoses Other hydronephrosis Procedures FLUORO IMAGING FOR UROLOGY Ryan Yepez MD [address] [facility] [address] [place] [address] Referral ID Status Reason Start Date Expiration Date V isits Requested Visits Authorized [id number] New Request 07/07/2022 08/01/2023 1 1 Specialty Diagnoses / Procedures Referred By Contac t Referred To Contact Urology Diagnoses 1 week fu post NT clamp Procedures RETURN PATIENT Zuly Bruno, BATCH AND FURNACE OPERATOR [address] [place] [address] Ryan Yepez MD [address] [facility] [address] [place] [address] Referral ID Status Reason Start Date Expiration Date Visits Re quested Visits Authorized [id number] Closed 07/07/2022 08/01/2023 2 2 Reason Comments Liver Recipient Follow-up Reason Comments Kidney Recipient Follow-up Reason Comments Kidney Recipient Follow-up Specialty Diagnoses / Procedures Referred By Contac t Referred To Contact Diagnoses Kidney replaced by transplant Steve Munoz MBBS [address] [place] [address] [facility] [address] [place] [address] Referral ID Status Reason Start Date Expiration Date Visits Re quested Visits Authorized [id number] 1 1 Specialty Diagnoses / Procedures Referred By Contac t Referred To Contact Diagnoses Pleural effusion on right PNEUMONIA- HX LIVER AND KIDNEY TRANSPLANT Kevin Prince MD [address] [place] [address] [facility] [address] [place] [address] Referral ID Status Reason Start Date Expiration Date Visits Re quested Visits Authorized [id number] 1 1 Reason Comments New Patient Specialty Diagnoses / Procedures Referred By Contac t Referred To Contact Cardiovascular Medicine Diagnoses Heart failure, diastolic, acute Kelvin Pacheco MD, MBBS [address] [place] [address] Referral ID Status Reason Start Date Expiration Date Visits Requested Visits Authorized [id number] Authorized - 01/20/2024 02/13/2025 5 5 Reason Comments Liver Recipient Follow-up (unrecognized sect ion and content) No Status Records FoundNo Status Records FoundNo Status Records FoundNo Status Records FoundNo Status Records FoundNo Status Records FoundNo Status Records Found INFORMATION SOURCE (unrecogn ized section and content) DATE CREATED AUTHOR 01/07/2020 [facility] DATE CREATED AUTHOR AUTHOR'S ORGANIZ ATION 01/27/2021 [facility] DATE CREATED AUTHOR AUTHOR'S ORGANIZ ATION 05/11/2023 [facility] DATE CREATED AUTHOR AUTHOR'S ORGANIZ ATION 06/03/2024 [facility] DATE CREATED AUTHOR AUTHOR'S ORGANIZ ATION 08/25/2024 [facility] DATE CREATED AUTHOR AUTHOR'S ORGANIZ ATION 09/09/2024 [facility] DATE CREATED AUTHOR AUTHOR'S ORGANIZ ATION 09/10/2024 [facility] Care Teams (unrecognized sec tion and content) Engine Repairer Service Relationship Specialty Start Date End Date Zuly Bruno CNP PCP - General 07/19/18 Comfort Rivera, [facility] [address] [facility] [address] [place] [address] Pharmacist Pharmacist 05/16/20 Angel Carpio RPh,PharmD Pharmacist Pharmacist 05/16/20 Te Leigh RPh,PharmD Pharmacist Pharmacist 01/09/21 Engine Repairer Service Relationship Specialty Start Date End Date Zuly Bruno CNP PCP - General 07/19/18 Comfort Rivera [facility] [address] [place] [address] Pharmacist Pharmacist 05/16/20 Angel Carpio RPh,PharmD Pharmacist Pharmacist 05/16/20 Te Leigh RPh,PharmD Pharmacist Pharmacist 01/09/21 Engine Repairer Service Relationship Specialty Start Date End Date Zuly Bruno CNP PCP - General 07/19/18 Engine Repairer Service Relationship Specialty Start Date End Date Zuly Bruno CNP PCP - General 07/19/18 Engine Repairer Service Relationship Specialty Start Date End Date Zuly Bruno CNP PCP - General 07/19/18 Engine Repairer Service Relationship Specialty Start Date End Date Zuly Bruno CNP PCP - General 07/19/18 Engine Repairer Service Relationship Specialty Start Date End Date FloreslatishaZuly tipton CNP PCP - General 07/19/18 Engine Repairer Service Relationship Specialty Start Date End Date FloreslatishaZuly tipton CNP PCP - General 07/19/18 Engine Repairer Service Relationship Specialty Start Date End Date Zuly Bruno CNP PCP - General 07/19/18 Engine Repairer Service Relationship Specialty Start Date End Date Zuly Bruno CNP PCP - General 07/19/18 Engine Repairer Service Relationship Specialty Start Date End Date FloreslatishaZuly tipton CNP PCP - General 07/19/18 Engine Repairer Service Relationship Specialty Start Date End Date Zuly Bruno CNP PCP - General 07/19/18 Engine Repairer Service Relationship Specialty Start Date End Date KristophersylvesterlatishaZuly tipton CNP PCP - General 07/19/18 Engine Repairer Service Relationship Specialty Start Date End Date Kiana ZulyROB PCP - General 07/19/18 Engine Repairer Service Relationship Specialty Start Date End Date Zuly Bruno CNP PCP - General 07/19/18 Engine Repairer Service Relationship Specialty Start Date End Date Zuly Bruno CNP PCP - General 07/19/18 Engine Repairer Service Relationship Specialty Start Date End Date Zuly Bruno CNP PCP - General 07/19/18 Evan White DO [address] [place] [address] Infectious Disease Infectious Disease 09/09/23 Engine Repairer Service Relationship Specialty Start Date End Date Zuly Bruno CNP PCP - General 07/19/18 Evan White DO [address] [place] [address] Infectious Disease Infectious Disease 09/09/23 Engine Repairer Service Relationship Specialty Start Date End Date Zuly Bruno CNP PCP - General 07/19/18 Evan White DO [address] [place] [address] Infectious Disease Infectious Disease 09/09/23 Engine Repairer Service Relationship Specialty Start Date End Date Momo Verdugo MD PCP - General Family Medicine 05/21/23 Engine Repairer Service Relationship Specialty Start Date End Date Momo Verdugo MD PCP - General Family Medicine 05/21/23 Engine Repairer Service Relationship Specialty Start Date End Date Momo Verdugo MD PCP - General Family Medicine 05/21/23 Engine Repairer Service Relationship Specialty Start Date End Date Zuly Bruno CNP PCP - General 07/19/18 Evan White DO [address] [place] [address] Infectious Disease Infectious Disease 09/09/23 Engine Repairer Service Relationship Specialty Start Date End Date Zuly Bruno CNP PCP - General 07/19/18 Evan White DO [address] [place] [address] Infectious Disease Infectious Disease 09/09/23 Engine Repairer Service Relationship Specialty Start Date End Date Zuly Bruno CNP PCP - General 07/19/18 Evan White DO [address] [place] [address] Infectious Disease Infectious Disease 09/09/23 Engine Repairer Service Relationship Specialty Start Date End Date Zuly Bruno CNP PCP - General 07/19/18 Evan White DO [facility] [address] Infectious Disease Infectious Disease 09/09/23 Engine Repairer Service Relationship Specialty Start Date End Date Zuly Bruno CNP PCP - General 07/19/18 Evan White DO [address] [place] [address] Infectious Disease Infectious Disease 09/09/23 Engine Repairer Service Relationship Specialty Start Date End Date Zuly Bruno CNP PCP - General 07/19/18 Engine Repairer Service Relationship Specialty Start Date End Date Zuly Bruno CNP PCP - General 07/19/18 Engine Repairer Service Relationship Specialty Start Date End Date Zuly Bruno CNP PCP - General 07/19/18 Engine Repairer Service Relationship Specialty Start Date End Date Zuly Bruno CNP PCP - General 07/19/18 Engine Repairer Service Relationship Specialty Start Date End Date Zuly Bruno CNP PCP - General 07/19/18 Engine Repairer Service Relationship Specialty Start Date End Date Zuly Bruno CNP PCP - General 07/19/18 Engine Repairer Service Relationship Specialty Start Date End Date Zuly Bruno CNP PCP - General 07/19/18 Engine Repairer Service Relationship Specialty Start Date End Date Momo Verdugo MD [address] [place] [address] PCP - General Family Medicine 02/11/24 Zuly Bruno NP [address] [place] [address] Nurse Practitioner Family Medicine 02/11/24 Kasandra Thomas DO [address] [place] [address] Referring Physician Neurology 02/17/24 Scheduled Active and Recently Administ ered Medications [...] Nishant Gamez MD)0806 (Given - Provider: Mel Hapmton RN)1558 (Given - Provider: Mel Hampton RN)2131 [...] Josey Braun RN)1128 (Stopped - Provider: Josey Braun, SAMI) Magnesium Sulfate 4 g in sterile water [...] 05/15/22 at 2206, Until Thu05/20/22 at 2109, Insomnia ondansetron (ZOFRAN) tablet 4 mg(Linked Group 1) 4 mg, Oral, EVERY 6 HOURS NEEDED, Starting on Marta 05/15/22 at 2206, Until Thu05/20/22 at 211, Nausea / Vomiting, 1st line for Nausea/Vomiting [...] 0825 (See Alternative - Provider: Josey Braun, SAMI)210 (See Alternative - Provider: Carolyn Isaac RN) [...] RN - Reason: Other) 2100 (Automatically Held) 1644 (Unheld by provider - [...] [facility] Unhold - Provider: Automatic Transfer)180 (Given - Provider: Terra Heart RN) 0920 (Given - Provider: Terra Heart RN)1700 (Canceled Entry - Provider: System Discharge - Comment: Automatically canceled at discontinue of medication order) Gabapentin (NEURONTIN) capsule 400 mg 400 mg, Oral, DAILY AT BEDTIME, First dose on 01/16/24 at 0200, Until Discontinued 2033 (Given - Provider: Tati Ahmadi RN) 1053 ([facility] [...] 0842 (Given - Provider: Terra Heart RN)1053 ([facility] [...] 08 (Given - Provider: Terra Heart RN)1053 (MAR [...] NEEDED, Starting on 01/16/24 at 0202, Until 2/24/24 at 1752, Carrier Fluid - See Admin. [...] BE BASED ON THE PRIMARY CLINICAL RECORDS. [employer] provides no warranty or guarantee of the accuracy or completeness of information in this document.
--- OUTSIDE RECORDS SUMMARY | 2024-10-10 06:39 | XMS_ITS | CCD ---
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 Primary Care Provider Miguel [facility] Shirin [facility],PharmD, Angel Unavailable Unavailab makayla Leigh [facility],PharmD, Te Unavailable Unavai lable Aicholz [facility] Primary Care Provider [phone] CRISTINA, DR BURCH Admitting Unavailable MISC, DR BURCH Consulting Unavailable AICHHOLZ, SENIOR DATA MODELER ZULY Primary Care Unavailable MISC, DR BURCH Attending Unavailable MISC, DR BURCH Admitting Unavailable MISC, DR BURCH Consulting Unavailable AICHHOLZ, SENIOR DATA MODELER ZULY Primary Care Unavailable MISC, DR BURCH Attending Unavailable ARCELIA PIZARRO Consulting Unavailable KE BURNHAM Attending Unavailable KE BURNHAM Admitting Unavailable DR MÓNICA JIMENEZ Consulting Unavailable AICHHOLZ, SENIOR DATA MODELER ZULY Primary Care Unavailable KE BURNHAM Consulting Unavailable MISC, DR BURCH Consulting Unavailable MISC, DR BURCH Attending Unavailable AICHHOLZ, SENIOR DATA MODELER ZULY Primary Care Unavailable MISC, DR BURCH Admitting Unavailable MISC, DR BURCH Consulting Unavailable MISC, DR DOCTOR Attending Unavailable AICHHOLZ, SENIOR DATA MODELER ZULY Primary Care Unavailable MISC, DOCTOR Admitting Unavailable MISC, DR DOCTOR Consulting Unavailable AICHHOLZ, SENIOR DATA MODELER ZULY Primary Care Unavailable MISC, DOCTOR Admitting Unavailable MISC, DR DOCTOR Attending Unavailable MELINDA, DR GEORGE Munoz Consulting Unavailable MELINDA, DR GEORGE Munoz Attending Unavailable AICHHOLZ, SENIOR DATA MODELER ZULY Primary Care Unavailable MELINDA, DR GEORGE Munoz Admitting Unavailable NAUN ., KE Consulting Unavailable MIRANDA, LYNDSAY Consulting Unavailable MELINDA, DR GEORGE Munoz Consulting Unavailable NAUN ., KE Attending Unavailable NAUN ., KE Admitting Unavailable AICHHOLZ, SENIOR DATA MODELER ZULY Primary Care Unavailable NAUN ., KE Consulting Unavailable GIAN HERRING Consulting Unavailable AICHHOLZ, SENIOR DATA MODELER ZULY Consulting Unavailable AICHHOLZ, SENIOR DATA MODELER ZULY Attending Unavailable AICHHOLZ, SENIOR DATA MODELER ZULY Admitting Unavailable AICHHOLZ, SENIOR DATA MODELER ZULY Primary Care Unavailable MISC, DOCTOR Consulting Unavailable MISC, DOCTOR Admitting Unavailable MISC, DOCTOR Attending Unavailable AICHHOLZ, SENIOR DATA MODELER ZULY Primary Care Unavailable MISC, DR DOCTOR Consulting Unavailable MISC, DR DOCTOR Attending Unavailable MISC, DR DOCTOR Admitting Unavailable AICHHOLZ, SENIOR DATA MODELER ZULY Primary Care Unavailable MISC, DOCTOR Admitting Unavailable MISC, DOCTOR Consulting Unavailable MISC, DR DOCTOR Attending Unavailable AICHHOLZ, SENIOR DATA MODELER ZULY Primary Care Unavailable MISC, DOCTOR Admitting Unavailable MISC, DR DOCTOR Consulting Unavailable AICHHOLZ, SENIOR DATA MODELER ZULY Primary Care Unavailable MISC, DR DOCTOR Attending Unavailable MISC, DOCTOR Admitting Unavailable MISC, DR DOCTOR Consulting Unavailable AICHHOLZ, SENIOR DATA MODELER ZULY Primary Care Unavailable MISC, DR DOCTOR Attending Unavailable AICHHOLZ, SENIOR DATA MODELER ZULY Consulting Unavailable AICHHOLZ, SENIOR DATA MODELER ZULY Attending Unavailable AICHHOLZ, SENIOR DATA MODELER ZULY Admitting Unavailable AICHHOLZ, SENIOR DATA MODELER ZULY Primary Care Unavailable DR MÓNICA JIMENEZ Consulting Unavailable Aichholz [facility], Zuly Primary Care Provider Evan White DO Unavailable Aichholz [facility], Zuly Primary Care Provider [phone] Evan White DO Unavailable Momo Verdugo MD Primary Care Provider Aichholz SENIOR DATA MODELER, Zuly Primary Care Provider MIGUEL CARDONA Attending [...] Attending Unavailable ZULY BRUNO Primary Care Physician [phone] Momo Verdugo MD Primary Care Provider [phone] Zuly Bruno NP Unavailable Martha Kasandra Unavailable Allergies Allergy Classification Reported Allergen(s) Allergy Type Date of Onset Reaction(s) Facility (2 sources) Shellfish; Translations: [SHELLFISH DERIVED] Propensity to adverse reactions (disorder) 8 [facility] (20 sources) Shellfish-Deriv ed Products Propensity to adverse reactions to drug 9 [facility] (3 sources) Shellfish; Translations: [shellfish] Drug allergy (disorder) Anaphylaxis (disorder) [facility] Medications Current Medications Medication Drug Class(es) Dates Sig (Normalized) Sig (Original) amLODIPine 5 mg oral tablet (20 sources) Dihydropyridine Calcium Channel Ibrahima Start: 08-12-2024 End: 11-10-2024 take 1 tablet by mouth once daily amLODIPine (Norvasc) 5 MG tablet Indications: Primary hypertension (CMS/HCC) Take 1 tablet (5 mg) by mouth Daily 90 tablet 1 08/12/2024 11/10/2024 Active Start: 01-16-2024 End: 01-23-2024 take 5 mg [...] dose on Thu05/16/22 at 0900, Until Discontinued ascorbic acid 100 mg / biotin 0.15 mg / calcium pantothenate 5 mg / folic acid 1 mg / niacin 20 mg / pyridoxine 10 mg / riboflavin 1.7 mg / thiamine mononitrate 1.5 mg / vitamin b 12 0.006 mg oral capsule (6 sources) Nicotinic Acid, Vitamin B12, Vitamin C take 1 capsule by mouth once daily b [id number] acid (NEPHROCAPS) 1 MG capsule Take 1 capsule by mouth daily 0 Active aspirin 81 mg delayed release oral tablet (20 sources) Platelet Aggregation Inhibitor, Nonsteroidal Anti-inflammatory Drug Start: 09-08-20 take 1 tablet by mouth once daily [...] Drug or medicament (substance) (1 source) Start: famotidine 20 mg oral tablet (20 sources) Histamine-2 Receptor Antagonist Start: End: take 1 tablet by mouth in the morning famotidine (Pepcid) 20 MG tablet Indications: Gastroesophageal reflux disease, unspecified whether esophagitis present Take 1 tablet (20 mg) by mouth in the morning and 1 tablet (20 mg) before bedtime. 180 tablet 1 08/23/2024 11/21/2024 Active Start: 01-16-2024 End: 01-23-2024 take 20 mg [...] dose on Thu05/16/22 at 0900, Until Discontinued folic acid 1 mg oral tablet (6 sources) take 1 tablet by mouth once daily folic acid (FOLVITE) 1 MG tablet Take 1 mg by mouth daily 0 Active gabapentin 400 mg oral capsule (20 sources) Anti-epileptic Agent Start: 06-27-2024 End: 09-25-2024 take 1 capsule by mouth at bedtime gabapentin (Neurontin) 400 MG capsule Indications: Other polyneuropathy Take 1 capsule (400 mg) by mouth at bedtime 90 capsule 1 06/27/2024 Active Start: 06-07-2023 End: 03-24-2024 take 1 capsule by mouth at bedtime Gabapentin 400 MG capsule Take 1 capsule by mouth at bedtime. 06/07/2023 Active Start: 05-15-2022 End: 05-20-2022 take 400 mg by mouth once daily at bedtime 400 mg, Oral, DAILY AT BEDTIME, First dose on Thu05/15/22 at 2215, Until Discontinued Start: 06-12-2020 End: 06-12-2023 take 4 capsules by mouth once daily at bedtime for pain gabapentin 100 MG capsule Take 4 capsules by mouth at bedtime. Take daily at bedtime for foot and ankle pain. 0 06/12/2020 06/12/2023 Discontinued lactulose 35800 mg powder for oral solution (19 sources) [...] (20 sources) Antimetabolite Immunosuppressant Star t: 08-30 0 24 mycophenolic acid 360 mg oral enteric coated [...] DAILY (Solid Organ Transplant), First dose on [facility] 01/16/24 at 0800, Until Discontinued, [...] nausea or vomiting Active polyethylene glycol 3350 09857 mg powder for oral solution (20 sources) [...] 07/17/2018 Active take 2 tablets by mo [facility] three times daily at mealtime sevelamer (RENVELA) [...] oral capsule (20 sources) alpha-Adrenergic Ibrahima Start: 10-03-2024 End: 11-02-2024 take 1 capsule by mouth every twenty-four hours at bedtime tamsulosin (Flomax) 0.4 MG 24 hr capsule Indications: Decreased urine stream Take 1 capsule (0.4 mg) by mouth at bedtime Take 0.4 mg by mouth at bedtime 30 capsule 2 10/03/2024 11/02/2024 Active Start: 09-08-2024 End: 09-03-2025 take 1 capsule by mouth twice daily tamsulosin 0.4 mg Cap 0.4 mg = 1 cap(s), Oral, BID, X 30 day(s), # 60 cap(s), Refills(s) 11, Pharmacy: [id number], 170, cm, 09/08/24 14:00:00 EDT, Height/Length Dosing, 90, kg, 09/08/24 14:00:00 EDT, Weight Dosing Start Date: 09/08/24 Stop Date: 09/03/25 Status: Ordered Start: 08-10-2024 End: 10-01-2024 take 1 capsule by mouth every twenty-four hours at bedtime tamsulosin (Flomax) 0.4 MG 24 hr capsule Take 0.4 mg by mouth at bedtime 08/10/2024 10/01/2024 Discontinued (Reorder) Start: 11-03-2023 End: 01-23-2024 take 1 capsule [...] or crush torsemide 20 mg oral tablet (20 sources) Loop Diuretic Start: 01-22-2024 End: 01-23-2024 take 1 tablet by mouth in the morning torsemide (Demadex) 20 MG tablet Take 20 mg by mouth in the morning. 01/22/2024 Active Start: 01-20-2024 End: 01-21-2024 take [...] End: 01-23-2024 take 2 tablets by mouth in the morning allopurinol (Zyloprim) 100 MG tablet Take 2 tablets by mouth in the morning. 01/15/2023 Active Start: 05-17-2022 End: 05-20-2022 allopurinol (ZYLOPRIM) table t 100 mg Start: 05-16-2022 End: 05-16-2022 take 200 mg by mouth once daily 200 mg, Oral, DAILY, F irst dose on Thu05/16/22 at 0900, Until Discontinued Start: 12-30-2021 take 2 tablets by [facility] once daily allopurinol 100 MG tablet Indications: Abnormal blood chemistry take 2 tablets by mouth once daily 180 tablet 3 12/30/2021 Active Start: 01-28-2021 take 2 tablets by [facility] once daily allopurinol 100 MG tablet [...] Hydroxide 200-200 mg and Simethicone 20 mg) atorvastatin 20 mg oral tablet (20 sources) [...] itraconazole Fax results to: Dr. White - [phone] [facility] - [phone] Each 09/10/2023 01/19/2024 Discontinued (Medication Reconciliation (suppress cancel msg)) Start: 09-10-2023 CUSTOM MEDICAT ION Labs to be obtained: 1- Tacrolimus level, trough - collect twice weekly until 09/24/23, then weekly until 10/08/23, them once every two weeks there after. 2- Itraconazole level - obtain once between 09/14-09/18. 3- Chem 6 - Obtain weekly while on itraconazole Fax results to: Dr. White - [phone] [facility] - [phone] Each 0 09/10/2023 Active Diatrizoate (1 [...] on Thu01/27/24 at 1430, Indications: DVT/PE prophylaxis 2 ml fentaNYL 0.05 mg/ml injection (1 [...] after administration. Start: 09-10-2023 End: 09-07-2024 take 10 mL by mouth in the morning itraconazole (Sporanox) 10 MG/ML solution Take 10 mL by mouth in the morning and 10 mL before bedtime. 09/10/2023 Active Start: 09-10-2023 End: 10-08-2023 take 20 [...] 01/16/2023 Discontinued take 2 tablets by mo [facility] in the morning magnesium oxide (Mag-Ox) 400 MG tablet Take 2 tablets by mouth in the morning. 0 Active take 1 tablet by [facility] once daily magnesium oxide [...] Date Documented Da te Episodic/Chronic Anxiety disorders (12 sources) Generalized anxiety disorder; Translations: [Generalized anxiety [...] Coronary arteriosclerosis; Translations: [Atherosclerotic heart disease of council coronary artery without angina pectoris] Onset: 3 04-22-2020 Chronic Disorders of lipid metabolism (9 sources) Hyperlipidemia, unspecified; Translations: [Mixed hyperlipidemia] Onset: 3 Chronic Esophageal disorders (6 sources) Gastroesophageal reflux disease; Translations: [Gastro-esophageal reflux disease without esophagitis] Onset: 3 11-03-2023 Chronic Essential hypertension (20 sources) Benign essential hypertension; Translations: [Essential (primary) hypertension] Onset: 2 04-22-2020 Chronic Genitourinary symptoms and ill-defined conditions (1 source) Finding of urological device; Translations: [Encounter for attention to other artificial openings of urinary tract] Chronic Genitourinary symptoms and ill-defined conditions (14 sources) Retention of urine, unspecified; Translations: [Hematuria, [...] other renal disorders] 08-28-2023 Chronic Immunity disorders (18 sources) Immunosuppression; Translations: [Immunodeficiency, unspecified] Onset: 2 Chronic Osteoporosis (3 sources) Osteoporosis; Translations: [Other osteoporosis without current pathological [...] sources) Taking high risk medication; Translations: [Other long term care phlebotomist (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] Episodic Other aftercare (1 source) Patient encounter status; Translations: [Encounter for therapeutic drug level monitoring] 06-17-2024 Episodic Other and ill-defined heart disease (6 sources) Dysfunction of papillary muscle; Translations: [Other ill-defined heart diseases] Onset: 3 11-03-2023 Chronic Other and ill-defined heart disease (3 sources) Diastolic dysfunction; Translations: [Other ill-defined heart diseases] Onset: 4 02-11-2024 Chronic Other diseases of kidney and ureters (4 sources) Hydronephrosis; Translations: [Hydronephrosis with ureteral stricture, not elsewhere classified] Episodic Other diseases of kidney and ureters (1 source) Urinary tract obstruction; Translations: [Other obstructive and reflux uropathy] Onset: 4 Episodic Other gastrointestinal disorders (3 sources) Constipation; Translations: [Other constipation] Onset: 4 08-23-2024 Episodic Other liver diseases (5 sources) Cirrhosis of liver; Translations: [Unspecified cirrhosis [...] unspecified] Onset: 4 Chronic Other liver diseases (3 sources) Portal hypertension; Translations: [Portal hypertension] Onset: 4 02-11-2024 Chronic Other lower respiratory disease (1 source) Hypoxia; Translations: [Hypoxemia] 09-10-2023 Episodic Other nervous system disorders (6 sources) Peripheral nerve disease ; Translations: [Polyneuropathy, unspecified] Onset: 4 12-03-2023 Chronic Other nutritional; endocrine; and metabolic disorders (20 sources) Obese class I; Translations: [Obesity, unspecified] Onset: 0 04-09-2020 Chronic Other nutritional; endocrine; and metabolic disorders (1 source) Obesity; Translations: [Obesity, unspecified] Onset: 3 11-03-2023 Chronic Other nutritional; endocrine; and metabolic disorders (6 sources) Body mass index 30+ - obesity; [...] Onset: 9 04-12-2020 Chronic Residual codes; unclassified (7 sources) Obstructive sleep apnea syndrome; Translations: [Obstructive sleep apnea (adult) (pediatric)] Onset: 3 11-21-2023 Chronic Residual codes; unclassified (3 sources) H/O: tissue/organ recipient; Translations: [Transplanted organ and [...] Date Documented Da te Episodic/Chronic Abdominal hernia (3 sources) Umbilical hernia; Translations: [Umbilical hernia without obstruction or gangrene] Onset: 4 02-11-2024 Episodic Abdominal pain (6 sources) Generalized abdominal pain; Translations: [Generalized abdominal pain] Onset: 3 12-05-2023 Episodic Acute and unspecified renal failure (20 sources) Acute injury of kidney; Translations: [Acute kidney failure, unspecified] Onset: 2 Resolved: 4 Episodic Alcohol-related disorders (20 sources) Alcoholic cirrhosis; Translations: [Alcoholic cirrhosis of liver without ascites] Onset: 8 Resolved: 4 10-05-2018 Chronic Allergic reactions (3 sources) Eczema; Translations: [Dermatitis, unspecified] Onset: 4 02-25-2024 Episodic Calculus of urinary tract (10 sources) Calculus of ureter; Translations: [Kidney stone] Onset: 2 11-03-2023 Episodic Complication of device; implant or graft (9 sources) Complication of dialysis; Translations: [Unspecified complication [...] Onset: 2 Episodic Deficiency and other anemia (6 sources) Anemia; Translations: [Anemia, unspecified] Onset: 3 11-03-2023 Episodic Diabetes mellitus without complication (6 sources) Hyperglycemia; Translations: [Hyperglycemia, unspecified] Onset: 3 11-03-2023 Episodic Fever of unknown origin (20 sources) Fever; Translations: [Fever, unspecified] Onset: 3 Resolved: 3 08-28-2023 Episodic Gastrointestinal hemorrhage (9 sources) Gastrointestinal hemorrhage; Translations: [Gastrointestinal hemorrhage, unspecified] Onset: 3 Resolved: 4 11-03-2023 Episodic Malaise and fatigue (3 sources) Asthenia; Translations: [Weakness] Onset: 4 02-18-2024 Episodic Mood disorders (3 sources) Mood disorders Onset: 4 02-11-2024 Mycoses (20 sources) Histoplasmosis; Translations: [Histoplasmosis, unspecified] Onset: 3 09-10-2023 Episodic Nausea and vomiting (20 sources) Nausea and vomiting; Translations: [Nausea with vomiting, unspecified] Onset: 0 05-10-2020 Episodic Other aftercare (1 source) Other long term care phlebotomist (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; Translations: [OTH NURSING HOME 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 THERAPY] Onset: 2 Episodic Other aftercare (1 source) residential (current) use of aspirin; Translations: [NURSING HOME CURRENT USE OF ASPIRIN] Onset: 2 Episodic Other circulatory disease (4 sources) Other specified symptoms and signs involving the circulatory and respiratory systems; Translations: [OTH SPEC SX SIGNS INVLV CIRC RS] Onset: 2 Episodic Other circulatory disease (3 sources) Carotid bruit; Translations: [Other specified symptoms and [...] 0 04-09-2020 Episodic Other lower respiratory disease (8 sources) Dyspnea; Translations: [Shortness of breath] Onset: 4 01-06-2024 Episodic Other lower respiratory disease (1 source) Shortness of breath; Translations: [Shortness of breath] Onset: 4 Episodic Other nervous system disorders (7 sources) Tremor; Translations: [Tremor, unspecified] Onset: 3 11-03-2023 Episodic Other nutritional; endocrine; and metabolic disorders (3 sources) Body mass index 25-29 - overweight; Translations: [Overweight] Onset: 4 04-18-2024 Episodic Pancreatic disorders (not diabetes) (3 sources) Pancreatitis; Translations: [Acute pancreatitis without necrosis or infection, unspecified] Onset: 4 Resolved: 4 02-11-2024 Episodic Pleurisy; pneumothorax; pulmonary collapse (20 sources) Pleural effusion; Translations: [Pleural effusion, not elsewhere classified] Onset: 4 01-16-2024 Episodic Residual codes; unclassified (1 source) Ill-defined and unknown cause of mortality; Translations: [ILL-DEFINED UNKNOWN CAUSE MORTALITY] Onset: 2 Episodic Residual codes; unclassified (6 sources) Bilateral lower limb edema; Translations: [Localized edema] Onset: 4 01-06-2024 Episodic Residual codes; unclassified (5 sources) Insomnia; Translations: [Insomnia, unspecified] Onset: 4 [...] WITH AUTO DIFFon BASOPHILS ABSOLUTE AUTO 0 [facility] Basophils/100 WBC (Bld) 0.6 % 0.2 - 2.0 % [facility] Eosinophils/100 WBC (Bld) 3.2 % 0.9 - 7.0 % [facility] Erythrocyte distribution width (RBC) [Ratio] 12.4 % 11.0 - 15.0 % [facility] Hematocrit (Bld) [Volume fraction] 47 % 42.0 - 54.0 % [facility] Hemoglobin (Bld) [Mass/Vol] 15.8 g/dL 14.0 - 18.0 g/dL [facility] IMMATURE GRANULOCYTES ABS AUTO 0.01 [facility] Immature granulocytes/100 WBC (Bld) 0.2 % 0.0 - 0.5 % [facility] Interpretation and review of laboratory results Abnormal [facility] LYMPHOCYTES ABSOLUTE AUTO 1.1 Low [facility] Lymphocytes/100 WBC (Bld) 22.8 % 20.5 - 60.0 % [facility] MCH (RBC) [Entitic mass] 29.6 pg 25.9 - 34.0 pg [facility] MCHC (RBC) [Mass/Vol] 33.6 g/dL 29.9 - 35.2 g/dL [facility] MCV (RBC) [Entitic vol] 88 fL 80.0 - 94.0 fL [facility] MONOCYTES ABSOLUTE AUTO 0.4 [facility] Monocytes/100 WBC (Bld) 8 % 1.7 - 12.0 % [facility] NEUTROPHILS ABSOLUTE AUTO 3.3 [facility] Neutrophils/100 WBC (Bld) 65.2 % 43.0 - 75.0 % [facility] Platelet mean volume (Bld) [Entitic vol] 9.3 fL Low 9.5 - 13.5 fL [facility] RBC 5.34 [facility] WBC 5 [facility] ALL CBC WITH AUTO DIFFon BASOPHILS ABSOLUTE AUTO 0 [facility] Basophils/100 WBC (Bld) 0.6 % 0.2 - 2.0 % [facility] Eosinophils/100 WBC (Bld) 2.9 % 0.9 - 7.0 % [facility] Erythrocyte distribution width (RBC) [Ratio] 12.5 % 11.0 - 15.0 % [facility] Hematocrit (Bld) [Volume fraction] 47.1 % 42.0 - 54.0 % [facility] Hemoglobin (Bld) [Mass/Vol] 15.2 g/dL 14.0 - 18.0 g/dL [facility] IMMATURE GRANULOCYTES ABS AUTO 0.01 [facility] Immature granulocytes/100 WBC (Bld) 0.2 % 0.0 - 0.5 % [facility] Interpretation and review of laboratory results Abnormal [facility] LYMPHOCYTES ABSOLUTE AUTO 1.6 [facility] Lymphocytes/100 WBC (Bld) 32.7 % 20.5 - 60.0 % [facility] MCH (RBC) [Entitic mass] 28.5 pg 25.9 - 34.0 pg [facility] MCHC (RBC) [Mass/Vol] 32.3 g/dL 29.9 - 35.2 g/dL [facility] MCV (RBC) [Entitic vol] 88.4 fL 80.0 - 94.0 fL [facility] MONOCYTES ABSOLUTE AUTO 0.4 [facility] Monocytes/100 WBC (Bld) 8.5 % 1.7 - 12.0 % [facility] NEUTROPHILS ABSOLUTE AUTO 2.6 [facility] Neutrophils/100 WBC (Bld) 55.1 % 43.0 - 75.0 % [facility] Platelet mean volume (Bld) [Entitic vol] 9.3 fL Low 9.5 - 13.5 fL [facility] TBH EO # 0.1 [facility] TB PLT 225 [facility] TB RBC 5.33 [facility] WBC 4.8 [facility] 36on 06-01-2024 36 Regarding echo performed on 05/18/2024: MD Cinda Batres MA Please tell him the echo was ok and showed a small residual fluid around the heart. This is significant improvement from before. Follow up as planned. Patient informed and he verbalized understanding. Normal [facility] Office Visiton 05-13-2024 Follow-up visit [id number] George Styles 1970 M Date Provider Department Center 05/13/2024 MIGUEL PARADA BESSY Lopez Family History Problem Relation Age of Onset Coronary artery disease Mother Coronary artery disease Father Family Status - Relation Status Age at Mother Father Level of Service:82638 IN OFFICE/OUTPATIENT ESTABLISHED LOW MDM 20 MIN Reason for Visit and Comments: Follow-up [958681] - Yearly follow up Normal [facility] B-TYPE NATRIURETIC PEPTIDE ( BRAIN)on 02-26-2024 Interpretation and review of laboratory results Normal [facility] Natriuretic peptide B (Bld) [Mass/Vol] 72 pg/mL 0 - 100 pg/mL [facility] Natriuretic peptide B (Bld) [Mass/Vol] 72 pg/mL Normal 0-100 [facility] Comment on above: Performed By: #### C HM7, HFP, MGO #### [facility] (DEFAULT) [address] [place] [address] CHEM 6 (LYTES, BUN CREA)on 0 02-26-2024 Anion gap [Moles/Vol] 13 mmol/L 7 - 17 mmol/L [facility] Chloride [Moles/Vol] 107 mmol/L 98 - 10 8 mmol/L [facility] CO2 [Moles/Vol] 25 mmol/L 21 - 31 mmol/L [facility] Creatinine [Mass/Vol] 1.23 mg/dL 0.70 - 1.30 mg/dL [facility] eGFR, CKD-EPI, Male 71 - [address] [facility] Comment on above: Reported eGFR is bas ed on the CKD-EPI 2020 equation using creatinine, age, and sex. Potassium [Moles/Vol] 4.2 mmol/L 3.5 - 5.0 mmol/L [facility] Sodium [Moles/Vol] 141 mmol/L 135 - 145 mmol/L [facility] Urea nitrogen [Mass/Vol] 17 mg/dL 7 - 25 mg/dL [facility] Urea nitrogen/Creatinine [Mass ratio] 14 mg/mg [facility] Anion gap [Moles/Vol] 13 mmol/L Normal 7-17 [facility] Comment on above: Performed By: #### C A, CHM7, HFP, IPB, MGO #### [facility] (DEFAULT) [address] [place] [address] Chloride [Moles/Vol] 107 mmol/L Normal 98-108 [facility] Comment on above: Performed By: #### C A, CHM7, HFP, IPB, MGO #### [facility] (DEFAULT) [address] [place] [address] CO2 [Moles/Vol] 25 mmol/L Normal 21-31 [facility] Comment on above: Performed By: #### C A, CHM7, HFP, IPB, MGO #### [facility] (DEFAULT) [address] [place] [id number] Creatinine [Mass/Vol] 1.23 mg/dL Normal 0.70-1.30 [facility] Comment on above: Performed By: #### C Tray, CHM7, HFP, IPB, MGO #### [facility] (DEFAULT) [address] [place] [address] 24344 GFR/1.73 sq M.predicted among non-blacks MDRD (S/P/Bld) [Vol rate/Area] 70 mL/min/{1.73_m2} Normal >=60 [facility] Comment on above: Result Comment: Repo rted eGFR is based on the CKD-EPI 2020 equation using creatinine, age, and sex. Performed By: #### C Tray, CHM7, HFP, IPB, MGO #### [facility] (DEFAULT) [address] [place] [address] 22468 Potassium [Moles/Vol] 4.2 mmol/L Normal 3.5-5.0 [facility] Comment on above: Performed By: #### C Tray, CHM7, HFP, IPB, MGO #### [facility] (DEFAULT) [address] [place] [address] 41084 Sodium [Moles/Vol] 141 mmol/L Normal 135-[address] [facility] Comment on above: Performed By: #### C A, CHM7, HFP, IPB, MGO #### [facility] (DEFAULT) [address] [place] [address] 69632 Urea nitrogen [Mass/Vol] 17 mg/dL Normal 7-25 [facility] Comment on above: Performed By: #### C A, CHM7, HFP, IPB, MGO #### [facility] (DEFAULT) [address] [place] [address] 14453 Urea nitrogen/Creatinine [Mass ratio] 14 mg/mg Normal [facility] Comment on above: Performed By: #### C A, CHM7, HFP, IPB, MGO #### [facility] (DEFAULT) [address] [place] [address] 10893 CBC,PLATELETSon 01-23-2024 Erythrocyte distribution width (RBC) [Ratio] 14.2 % 10.9 - 14.3 % [facility] Hematocrit (Bld) [Volume fraction] 37.0 % Low 39.6 - 48.8 % [facility] Hemoglobin (Bld) [Mass/Vol] 12.0 g/dL Low 13.4 - 16.8 g/dL [facility] Interpretation and review of laboratory results Abnormal [facility] MCH (RBC) [Entitic mass] 28.6 pg 26.1 - 33.3 pg [facility] MCHC (RBC) [Mass/Vol] 32.4 g/dL 31.9 - 36.5 g/dL [facility] MCV (RBC) [Entitic vol] 88.1 fL 79.0 - 94.5 fL [facility] Platelet mean volume (Bld) [Entitic vol] 10.4 fL 8.7 - 12.3 fL [facility] Platelets (Bld) [#/Vol] 170 10*3/uL 146 - 337 K/uL [facility] RBC (Bld) [#/Vol] 4.20 10*6/uL Low [facility] WBC (Bld) [#/Vol] 3.70 10*3/uL Low 3.73 - 10. 10 K/uL [facility] Hematocrit (Bld) [Volume fraction] 37.0 % Low 39.6-48.8 [facility] Comment on above: Performed By: #### C HM7, HFP, MGO #### [facility] (DEFAULT) [address] [place] [address] 76164 Hemoglobin (Bld) [Mass/Vol] 12.0 g/dL Low 13.4-16.8 [facility] Comment on above: Performed By: #### Chinedu HM7, HFP, MGO #### [facility] (DEFAULT) [address] [place] [address] 84005 MCV (RBC) [Entitic vol] 88.1 fL Normal 79.0-94.5 [facility] Comment on above: Performed By: #### C HM7, HFP, MGO #### [facility] (DEFAULT) [address] [place] [address] 27637 Mean Cell Hgb 28.6 pg Normal 26.1-33.3 [facility] Comment on above: Performed By: #### C HM7, HFP, MGO #### [facility] (DEFAULT) [address] [place] [address] 92159 Mean Cell Hgb Conc 32.4 g/dL Normal 31.9-36.[address] [facility] Comment on above: Performed By: #### C HM7, HFP, MGO #### [facility] (DEFAULT) [address] [place] [address] 97933 Platelet mean volume (Bld) [Entitic vol] 10.4 fL Normal 8.7-12.3 [facility] Comment on above: Performed By: #### C HM7, HFP, MGO #### [facility] (DEFAULT) [address] [place] [address] 59522 Platelets (Bld) [#/Vol] 170 10*3/uL Normal 146-337 [facility] Comment on above: Performed By: #### C HM7, HFP, MGO #### [facility] (DEFAULT) [address] [place] [address] 22661 RBC (Bld) [#/Vol] 4.20 10*6/uL Low 4.38-5.83 [facility] Comment on above: Performed By: #### C HM7, HFP, MGO #### [facility] (DEFAULT) [address] [place] [address] 56174 RBC Distribution 14.2 % Normal 10.9-14.3 [facility] Comment on above: Performed By: #### C HM7, HFP, MGO #### [facility] (DEFAULT) [address] [place] [address] [place] [address] WBC (Bld) [#/Vol] 3.70 10*3/uL Low 3.73-10.10 [facility] Comment on above: Performed By: #### C JASMYNE, TAVO, MGO #### [facility] (DEFAULT) [address] [place] [address] CHEM 7 (LYTES,BUN,CREA,GLUC) on 01-23-2024 Anion gap [Moles/Vol] 14 mmol/L 7 - 17 mmol/L [facility] Chloride [Moles/Vol] 105 mmol/L 98 - 10 8 mmol/L [facility] CO2 [Moles/Vol] 25 mmol/L 21 - 31 mmol/L [facility] Creatinine [Mass/Vol] 1.32 mg/dL High 0.70 - 1.30 mg/dL [facility] eGFR, CKD-EPI, Male 66 - PIN[address] [facility] Comment on above: Reported eGFR is bas ed on the CKD-EPI 2020 equation using creatinine, age, and sex. Glucose [Mass/Vol] 94 mg/dL 70 - 99 mg/dL [facility] Osmolality Calc [Osmolality] 296 [facility] Potassium [Moles/Vol] 3.8 mmol/L 3.5 - 5.0 mmol/L [facility] Sodium [Moles/Vol] 140 mmol/L 135 - 145 mmol/L [facility] Urea nitrogen [Mass/Vol] 23 mg/dL 7 - 25 mg/dL [facility] Urea nitrogen/Creatinine [Mass ratio] 17 mg/mg [facility] Anion gap [Moles/Vol] 14 mmol/L Normal 7-17 [facility] Comment on above: Performed By: #### C HMJessica, TAVO, MGO #### [facility] (DEFAULT) [address] [place] [address] Chloride [Moles/Vol] 105 mmol/L Normal 98-108 [facility] Comment on above: Performed By: #### Chinedu HMJessica, HFP, MGO #### [facility] (DEFAULT) [address] [place] [address] 69870 CO2 [Moles/Vol] 25 mmol/L Normal 21-31 [facility] Comment on above: Performed By: #### C HM7, HFP, MGO #### [facility] (DEFAULT) [address] [place] [address] 52606 Creatinine [Mass/Vol] 1.32 mg/dL High 0.70-1.30 [facility] Comment on above: Performed By: #### C HM7, HFP, MGO #### [facility] (DEFAULT) [address] [place] [address] 00404 GFR/1.73 sq M.predicted among non-blacks MDRD (S/P/Bld) [Vol rate/Area] 65 mL/min/{1.73_m2} Normal >=60 [facility] Comment on above: Result Comment: Repo rted eGFR is based on the CKD-EPI 2020 equation using creatinine, age, and sex. Performed By: #### C HM7, HFP, MGO #### [facility] (DEFAULT) [address] [place] [address] 56825 Glucose [Mass/Vol] 94 mg/dL Normal 70-[address] [facility] Comment on above: Performed By: #### C HM7, HFP, MGO #### [facility] (DEFAULT) [address] [place] [address] 55432 Osmolality [Osmolality] 296 mosm/kg Normal 278-305 [facility] Comment on above: Performed By: #### C HM7, HFP, MGO #### [facility] (DEFAULT) [address] [place] [address] 34387 Potassium [Moles/Vol] 3.8 mmol/L Normal 3.5-5.0 [facility] Comment on above: Performed By: #### C HM7, HFP, MGO #### [facility] (DEFAULT) [address] [place] [address] 82104 Sodium [Moles/Vol] 140 mmol/L Normal 135-[address] [facility] Comment on above: Performed By: #### C HM7, HFP, MGO #### [facility] (DEFAULT) [address] [place] [address] Urea nitrogen [Mass/Vol] 23 mg/dL Normal 7-25 [facility] Comment on above: Performed By: #### C HM7, HFP, MGO #### [facility] (DEFAULT) [address] [place] [address] Urea nitrogen/Creatinine [Mass ratio] 17 mg/mg Normal [facility] Comment on above: Performed By: #### C HM7, HFP, MGO #### [facility] (DEFAULT) [address] [place] [address] 89696 GLUCOSE POCon 01-23-2024 Glucose [Mass/Vol] 88 mg/dL 70 - 99 mg/dL [facility] POC Sample Type CAPBL [facility] Test performed at address of the patient encounter. [facility] Glucose [Mass/Vol] 191 mg/dL High 70 - 99 mg/dL [facility] Interpretation and review of laboratory results Abnormal [facility] POC Sample [facility] Test performed at address of the patient encounter. [facility] HEPATIC FUNCTION PANELon Albumin [Mass/Vol] 3.9 g/dL 3.5 - 5.0 g/dL [facility] ALP [Catalytic activity/Vol] 83 U/L 32 - 126 U/L [facility] ALT [Catalytic activity/Vol] 9 U/L Low 10 - 52 U/L [facility] AST [Catalytic activity/Vol] 17 U/L 10 - 39 U/L [facility] Bilirubin [Mass/Vol] 1.6 mg/dL High NINF - 1.5 mg/dL [facility] Bilirubin.direct [Mass/Vol] 0.4 mg/dL High NINF - 0.3 mg/dL [facility] Protein [Mass/Vol] 6.6 g/dL 6.4 - 8.3 g/dL [facility] Albumin [Mass/Vol] 3.9 g/dL Normal 3.5-5.[address] [facility] Comment on above: Performed By: #### C HM7, HFP, MGO #### [facility] (DEFAULT) [address] [place] [address] 60746 ALP [Catalytic activity/Vol] 83 U/L Normal 32-126 [facility] Comment on above: Performed By: #### C HM7, HFP, MGO #### [facility] (DEFAULT) [address] [place] [address] 91274 ALT [Catalytic activity/Vol] 9 U/L Low 10-52 [facility] Comment on above: Performed By: #### C HM7, HFP, MGO #### [facility] (DEFAULT) [address] [place] [address] 69082 AST [Catalytic activity/Vol] 17 U/L Normal 10-39 [facility] Comment on above: Performed By: #### C HM7, HFP, MGO #### [facility] (DEFAULT) [address] [place] [address] 65467 Bilirubin [Mass/Vol] 1.6 mg/dL High <1.5 [facility] Comment on above: Performed By: #### Chinedu HM7, HFP, MGO #### [facility] (DEFAULT) [address] [place] [address] 65574 Bilirubin.indirect [Mass/Vol] 0.4 mg/dL High <0.3 [facility] Comment on above: Performed By: #### Chinedu HM7, HFP, MGO #### [facility] (DEFAULT) [address] [place] [address] 37856 Protein [Mass/Vol] 6.6 g/dL Normal 6.4-8.[address] [facility] Comment on above: Performed By: #### C HM7, HFP, MGO #### [facility] (DEFAULT) [address] [place] [address] ITRACONAZOLE LEVELon 024 Hydroxyitraconazole [Mass/Vol] 7.6 mcg/mL [facility] Comment on above: REFERENCE VALUE No therapeutic range established; activity and serum concentration are similar to parent drug. ADDITIONAL INFORMATION This test was developed and its performance characteristics determined by [facility] in a manner consistent with CLIA requirements. This test has not been cleared or approved by the U.[place]. Food and Drug Administration. Test Performed by: [facility] [address] [place] [address] [employer] Operator: Rosendo Bose M.D. Ph.D.; CLIA# [id number] Itraconazole [Mass/Vol] 6.0 mcg/mL [facility] Comment on above: REFERENCE VALUE >0.5 (localized infection), >1.0 (systemic infection) [facility] MAGNESIUMon 01-23-2024 Interpretation and review of laboratory results Normal [facility] Magnesium [Mass/Vol] 1.8 mg/dL 1.6 - 2 .6 mg/dL [facility] Magnesium [Mass/Vol] 1.8 mg/dL Normal 1.6-2.6 [facility] Comment on above: Performed By: #### C JASMYNE, TAVO, MGO #### [facility] (DEFAULT) [address] [address] No Panel Informationon 01-23 Interpretation and review of laboratory results Abnormal [facility] TACROLIMUS LEVEL, TROUGH (IN E DRUG LEVEL)on 01-23-2024 Interpretation and review of laboratory results Normal [facility] Tacrolimus (Bld) [Mass/Vol] 7.0 ng/mL Bone Marrow Transplant: 4.0-12.0, Therapeutic: 5.0-15.0 [facility] Method performed is a chemiluminescent microparticle immunoasssay on the [employer] i2000. The range is based on experience at [facility] and users should be aware that target concentrations vary widely depending on concomitant therapy, time post-transplant, and desired degree of immunosuppression. [facility] Tacrolimus, Trough 7.0 ng/mL Normal Bone Susana ow Transplant: 4.0-12.0, Therapeutic: 5.0-15.0 [facility] Comment on above: Order Comment: Pleas e draw at specified interval PRIOR to dose. Do not hold dose to wait for level. Specimens batched twice per day, (M-F) and once per day weekendsMethod performed is a chemiluminescent microparticle immunoasssay on the [employer] i2000.The range is based on experience at [facility] and users should be aware that target concentrations vary widely depending on concomitant therapy, time post-transplant, and desired degree of immunosuppression. Performed By: #### C A, CHM7, HFP, IPB, MGO #### [facility] (DEFAULT) [address] [place] [address] CARDIAC RHYTHM (SCANNED)on 0 01-22-2024 [facility] CBC,PLATELETSon 01-22-2024 Erythrocyte distribution width (RBC) [Ratio] 14.1 % 10.9 - 14.3 % [facility] Hematocrit (Bld) [Volume fraction] 41.5 % 39.6 - 48.8 % [facility] Hemoglobin (Bld) [Mass/Vol] 13.3 g/dL Low 13.4 - 16.8 g/dL [facility] Interpretation and review of laboratory results Abnormal [facility] MCH (RBC) [Entitic mass] 27.8 pg 26.1 - 33.3 pg [facility] MCHC (RBC) [Mass/Vol] 32.0 g/dL 31.9 - 36.5 g/dL [facility] MCV (RBC) [Entitic vol] 86.8 fL 79.0 - 94.5 fL [facility] Platelet mean volume (Bld) [Entitic vol] 10.5 fL 8.7 - 12.3 fL [facility] Platelets (Bld) [#/Vol] 186 10*3/uL 146 - 337 K/uL [facility] RBC (Bld) [#/Vol] 4.78 10*6/uL [facility] WBC (Bld) [#/Vol] 3.74 10*3/uL 3.73 - 10. 10 K/uL [facility] Hematocrit (Bld) [Volume fraction] 41.5 % Normal 39.6-48.8 [facility] Comment on above: Performed By: #### C JASMYNE, TAVO, MGO #### [facility] (DEFAULT) [address] [place] [address] 45938 Hemoglobin (Bld) [Mass/Vol] 13.3 g/dL Low 13.4-16.8 [facility] Comment on above: Performed By: #### Chinedu MEDLEY, HFP, MGO #### [facility] (DEFAULT) [address] [place] [address] 02149 MCV (RBC) [Entitic vol] 86.8 fL Normal 79.0-94.5 [facility] Comment on above: Performed By: #### Chinedu HMJessica, HFP, MGO #### [facility] (DEFAULT) [address] [place] [address] 10910 Mean Cell Hgb 27.8 pg Normal 26.1-33.3 [facility] Comment on above: Performed By: #### Chinedu HM7, HFP, MGO #### [facility] (DEFAULT) [address] [place] [address] 82951 Mean Cell Hgb Conc 32.0 g/dL Normal 31.9-36.[address] [facility] Comment on above: Performed By: #### C HM7, HFP, MGO #### [facility] (DEFAULT) [address] [place] [address] 15847 Platelet mean volume (Bld) [Entitic vol] 10.5 fL Normal 8.7-12.3 [facility] Comment on above: Performed By: #### C HM7, HFP, MGO #### [facility] (DEFAULT) [address] [place] [address] 88101 Platelets (Bld) [#/Vol] 186 10*3/uL Normal 146-337 [facility] Comment on above: Performed By: #### C HM7, HFP, MGO #### [facility] (DEFAULT) [address] [place] [address] 71472 RBC (Bld) [#/Vol] 4.78 10*6/uL Normal 4.38-5.83 [facility] Comment on above: Performed By: #### C HM7, HFP, MGO #### [facility] (DEFAULT) [address] [place] [address] 88085 RBC Distribution 14.1 % Normal 10.9-14.3 [facility] Comment on above: Performed By: #### Chinedu HM7, HFP, MGO #### [facility] (DEFAULT) [address] [place] [address] 73669 WBC (Bld) [#/Vol] 3.74 10*3/uL Normal 3.73-10.10 [facility] Comment on above: Performed By: #### C HM7, HFP, MGO #### [facility] (DEFAULT) [address] [place] [address] 49133 CHEM 7 (LYTES,BUN,CREA,GLUC) on 01-22-2024 Anion gap [Moles/Vol] 13 mmol/L 7 - 17 mmol/L [facility] Chloride [Moles/Vol] 109 mmol/L High 98 - 10 8 mmol/L [facility] CO2 [Moles/Vol] 23 mmol/L 21 - 31 mmol/L [facility] Creatinine [Mass/Vol] 1.10 mg/dL 0.70 - 1.30 mg/dL [facility] eGFR, CKD-EPI, Male 82 - [address] [facility] Comment on above: Reported eGFR is bas ed on the CKD-EPI 2020 equation using creatinine, age, and sex. Glucose [Mass/Vol] 84 mg/dL 70 - 99 mg/dL [facility] Interpretation and review of laboratory results Abnormal [facility] Osmolality Calc [Osmolality] 295 [facility] Potassium [Moles/Vol] 4.0 mmol/L 3.5 - 5.0 mmol/L [facility] Sodium [Moles/Vol] 141 mmol/L 135 - 145 mmol/L [facility] Urea nitrogen [Mass/Vol] 16 mg/dL 7 - 25 mg/dL [facility] Urea nitrogen/Creatinine [Mass ratio] 15 mg/mg [facility] Anion gap [Moles/Vol] 13 mmol/L Normal 7-17 [facility] Comment on above: Performed By: #### C HM7, HFP, MGO #### [facility] (DEFAULT) [address] [place] [address] 77150 Chloride [Moles/Vol] 109 mmol/L High 98-108 [facility] Comment on above: Performed By: #### C HM7, HFP, MGO #### [facility] (DEFAULT) [address] [place] [address] 21170 CO2 [Moles/Vol] 23 mmol/L Normal 21-31 [facility] Comment on above: Performed By: #### C HM7, HFP, MGO #### [facility] (DEFAULT) [address] [place] [address] 54528 Creatinine [Mass/Vol] 1.10 mg/dL Normal 0.70-1.30 [facility] Comment on above: Performed By: #### C HM7, HFP, MGO #### [facility] (DEFAULT) [address] [place] [address] 69819 GFR/1.73 sq M.predicted among non-blacks MDRD (S/P/Bld) [Vol rate/Area] 81 mL/min/{1.73_m2} Normal >=60 [facility] Comment on above: Result Comment: Repo rted eGFR is based on the CKD-EPI 2020 equation using creatinine, age, and sex. Performed By: #### C HM7, HFP, MGO #### [facility] (DEFAULT) [address] [place] [address] 04348 Glucose [Mass/Vol] 84 mg/dL Normal 70-[address] [facility] Comment on above: Performed By: #### Chinedu HM7, HFP, MGO #### [facility] (DEFAULT) [address] [place] [address] 88415 Osmolality [Osmolality] 295 mosm/kg Normal 278-305 [facility] Comment on above: Performed By: #### Chinedu HM7, HFP, MGO #### [facility] (DEFAULT) [address] [place] [address] 05345 Potassium [Moles/Vol] 4.0 mmol/L Normal 3.5-5.0 [facility] Comment on above: Performed By: #### Chinedu HM7, HFP, MGO #### [facility] (DEFAULT) [address] [place] [address] 60402 Sodium [Moles/Vol] 141 mmol/L Normal 135-[address] [facility] Comment on above: Performed By: #### Chinedu HM7, HFP, MGO #### [facility] (DEFAULT) [address] [place] [address] 19040 Urea nitrogen [Mass/Vol] 16 mg/dL Normal 7-25 [facility] Comment on above: Performed By: #### Chinedu HM7, HFP, MGO #### [facility] (DEFAULT) [address] [place] [address] 21902 Urea nitrogen/Creatinine [Mass ratio] 15 mg/mg Normal [facility] Comment on above: Performed By: #### C HM7, HFP, MGO #### [facility] (DEFAULT) [address] [place] [address] 86020 MAGNESIUMon 01-22-2024 Interpretation and review of laboratory results Normal [facility] Magnesium [Mass/Vol] 2.0 mg/dL 1.6 - 2 .6 mg/dL [facility] Magnesium [Mass/Vol] 2.0 mg/dL Normal 1.6-2.6 [facility] Comment on above: Performed By: #### M GO, CHM7 #### [facility] (DEFAULT) [address] [place] [address] 90622 No Panel Informationon 01-22 [facility] PT,INR,PTTon 01-22-2024 aPTT Coag (PPP) [Time] 29.2 s [facility] INR Coag (Bld) [Relative time] 1.1 {INR} 0.9 - 1.1 [facility] Interpretation and review of laboratory results Abnormal [facility] PT Coag (PPP) [Time] 14.3 s High [facility] aPTT Coag (Bld) [Time] 29.2 s Normal 24.0-34.3 [facility] Comment on above: Performed By: #### P TPTT #### [facility] (DEFAULT) [address] [place] [address] [phone] INR Coag (PPP) [Relative time] 1.1 {INR} Normal 0.9-1.1 [facility] Comment on above: Performed By: #### P TPTT #### [facility] (DEFAULT) [address] [place] [address] 75222 PT Coag (PPP) [Time] 14.3 s High 11.9-14.2 [facility] Comment on above: Performed By: #### P TPTT #### [facility] (DEFAULT) [address] [place] [address] 68122 TACROLIMUS LEVEL, TROUGH (IN E DRUG LEVEL)Ordered By: Sheree Jensen on 01-22-2024 Interpretation and review of laboratory results Normal [facility] Tacrolimus (Bld) [Mass/Vol] 7.9 ng/mL Bone Marrow Transplant: 4.0-12.0, Therapeutic: 5.0-15.0 [facility] Method performed is a chemiluminescent microparticle immunoasssay on the [employer] i2000. The range is based on experience at [facility] and users should be aware that target concentrations vary widely depending on concomitant therapy, time post-transplant, and desired degree of immunosuppression. [facility] TACROLIMUS LEVEL, TROUGH (IN E DRUG LEVEL)on 01-22-2024 Tacrolimus, Trough 7.9 ng/mL Normal Bone Susana ow Transplant: 4.0-12.0, Therapeutic: 5.0-15.0 [facility] Comment on above: Order Comment: Pleas e draw at specified interval PRIOR to dose. Do not hold dose to wait for level. Specimens batched twice per day, (M-F) and once per day weekendsMethod performed is a chemiluminescent microparticle immunoasssay on the [employer] i2000.The range is based on experience at [facility] and users should be aware that target concentrations vary widely depending on concomitant therapy, time post-transplant, and desired degree of immunosuppression. Performed By: #### C A, CHM7, HFP, IPB, MGO #### [facility] (DEFAULT) [address] [place] [address] TYPE AND SCREENon 01-22-2024 ABO/RH(D) TYPE Positive [facility] ABO/RH(D) TYPE Positive Normal [facility] Comment on above: Performed By: #### C HM7, HFP, MGO #### [facility] (DEFAULT) [address] [address] [place] Unspecified body regionOr dered By: Unassigned Pacs on 01-22-2024 [facility] Work Phone: [place] Unspecified body regionon 01-22-2024 Radiology Study observation (narrative) [facility] CBC,PLATELETSon 01-21-2024 Erythrocyte distribution width (RBC) [Ratio] 14.0 % 10.9 - 14.3 % [facility] Hematocrit (Bld) [Volume fraction] 39.4 % Low 39.6 - 48.8 % [facility] Hemoglobin (Bld) [Mass/Vol] 12.7 g/dL Low 13.4 - 16.8 g/dL [facility] Interpretation and review of laboratory results Abnormal [facility] MCH (RBC) [Entitic mass] 28.0 pg 26.1 - 33.3 pg [facility] MCHC (RBC) [Mass/Vol] 32.2 g/dL 31.9 - 36.5 g/dL [facility] MCV (RBC) [Entitic vol] 87.0 fL 79.0 - 94.5 fL [facility] Platelet mean volume (Bld) [Entitic vol] 10.2 fL 8.7 - 12.3 fL [facility] Platelets (Bld) [#/Vol] 157 10*3/uL 146 - 337 K/uL [facility] RBC (Bld) [#/Vol] 4.53 10*6/uL [facility] WBC (Bld) [#/Vol] 3.42 10*3/uL Low 3.73 - 10. 10 K/uL [facility] Hematocrit (Bld) [Volume fraction] 39.4 % Low 39.6-48.8 [facility] Comment on above: Performed By: #### C A, CHM7, HFP, IPB, MGO #### [facility] (DEFAULT) [address] [address] Hemoglobin (Bld) [Mass/Vol] 12.7 g/dL Low 13.4-16.8 [facility] Comment on above: Performed By: #### C A, CHM7, HFP, IPB, MGO #### [facility] (DEFAULT) [address] [address] MCV (RBC) [Entitic vol] 87.0 fL Normal 79.0-94.5 [facility] Comment on above: Performed By: #### Chinedu Feliz, CHM7, HFP, IPB, MGO #### [facility] (DEFAULT) [address] [place] [address] Mean Cell Hgb 28.0 pg Normal 26.1-33.3 [facility] Comment on above: Performed By: #### Chinedu Feliz, CHM7, HFP, IPB, MGO #### [facility] (DEFAULT) [address] [place] [address] Mean Cell Hgb Conc 32.2 g/dL Normal 31.9-36.[address] [facility] Comment on above: Performed By: #### Chinedu Feliz, CHM7, HFP, IPB, MGO #### [facility] (DEFAULT) [address] [place] [address] Platelet mean volume (Bld) [Entitic vol] 10.2 fL Normal 8.7-12.3 [facility] Comment on above: Performed By: #### Chinedu Feliz, CHM7, HFP, IPB, MGO #### [facility] (DEFAULT) [address] [place] [address] Platelets (Bld) [#/Vol] 157 10*3/uL Normal 146-337 [facility] Comment on above: Performed By: #### Chinedu Feliz, CHM7, HFP, IPB, MGO #### [facility] (DEFAULT) [address] [place] [address] RBC (Bld) [#/Vol] 4.53 10*6/uL Normal 4.38-5.83 [facility] Comment on above: Performed By: #### Chinedu Feliz, CHM7, HFP, IPB, MGO #### [facility] (DEFAULT) [address] [place] [address] RBC Distribution 14.0 % Normal 10.9-14.3 [facility] Comment on above: Performed By: #### C A, CHM7, HFP, IPB, MGO #### [facility] (DEFAULT) [address] [place] [address] WBC (Bld) [#/Vol] 3.42 10*3/uL Low 3.73-10.10 [facility] Comment on above: Performed By: #### C A, CHM7, HFP, IPB, MGO #### [facility] (DEFAULT) [address] [place] [address] CHEM 7 (LYTES,BUN,CREA,GLUC) on 01-21-2024 Anion gap [Moles/Vol] 12 mmol/L 7 - 17 mmol/L [facility] Chloride [Moles/Vol] 107 mmol/L 98 - 10 8 mmol/L [facility] CO2 [Moles/Vol] 26 mmol/L 21 - 31 mmol/L [facility] Creatinine [Mass/Vol] 1.11 mg/dL 0.70 - 1.30 mg/dL [facility] eGFR, CKD-EPI, Male 80 - PINF [facility] Comment on above: Reported eGFR is bas ed on the CKD-EPI 2020 equation using creatinine, age, and sex. Glucose [Mass/Vol] 93 mg/dL 70 - 99 mg/dL [facility] Osmolality Calc [Osmolality] 295 [facility] Potassium [Moles/Vol] 3.9 mmol/L 3.5 - 5.0 mmol/L [facility] Sodium [Moles/Vol] 141 mmol/L 135 - 145 mmol/L [facility] Urea nitrogen [Mass/Vol] 15 mg/dL 7 - 25 mg/dL [facility] Urea nitrogen/Creatinine [Mass ratio] 14 mg/mg [facility] Anion gap [Moles/Vol] 12 mmol/L Normal 7-17 [facility] Comment on above: Performed By: #### C HM7, HFP, MGO #### [facility] (DEFAULT) [address] [place] [address] Chloride [Moles/Vol] 107 mmol/L Normal 98-108 [facility] Comment on above: Performed By: #### C TAVO MEDLEY, MGO #### [facility] (DEFAULT) [address] [place] [address] CO2 [Moles/Vol] 26 mmol/L Normal 21-31 [facility] Comment on above: Performed By: #### TAVO GONG, MGO #### [facility] (DEFAULT) [address] [place] [address] Creatinine [Mass/Vol] 1.11 mg/dL Normal 0.70-1.30 [facility] Comment on above: Performed By: #### TAVO GONG, MGO #### [facility] (DEFAULT) [address] [place] [address] GFR/1.73 sq M.predicted among non-blacks MDRD (S/P/Bld) [Vol rate/Area] 80 mL/min/{1.73_m2} Normal >=60 [facility] Comment on above: Result Comment: Repo rted eGFR is based on the CKD-EPI 2020 equation using creatinine, age, and sex. Performed By: #### C TAVO MEDLEY, MGO #### [facility] (DEFAULT) [address] [place] [address] Glucose [Mass/Vol] 93 mg/dL Normal 70-[address] [facility] Comment on above: Performed By: #### TAVO GONG, MGO #### [facility] (DEFAULT) [address] [place] [address] Osmolality [Osmolality] 295 mosm/kg Normal 278-305 [facility] Comment on above: Performed By: #### TAVO GONG, MGO #### [facility] (DEFAULT) [address] [place] [address] Potassium [Moles/Vol] 3.9 mmol/L Normal 3.5-5.0 [facility] Comment on above: Performed By: #### C HM7, HFP, MGO #### [facility] (DEFAULT) [address] [place] [address] Sodium [Moles/Vol] 141 mmol/L Normal 135-[address] [facility] Comment on above: Performed By: #### C HM7, HFP, MGO #### [facility] (DEFAULT) [address] [place] [address] Urea nitrogen [Mass/Vol] 15 mg/dL Normal 7-25 [facility] Comment on above: Performed By: #### C HM7, HFP, MGO #### [facility] (DEFAULT) [address] [place] [address] Urea nitrogen/Creatinine [Mass ratio] 14 mg/mg Normal [facility] Comment on above: Performed By: #### C HM7, HFP, MGO #### [facility] (DEFAULT) [address] [place] [address] Cardiac catheterization stud yOrdered By: Kelvin Donohue on 01-21-2024 Body surface area Derived from formula 2.08 m2 [facility] Work Phone: [facility] Work Phone: Cardiac catheterization stud [...] with fistula occlusion Kelvin Donohue MD, MPH Paper Bundler of Internal Medicine. Section of Advanced Heart Failure and Transplantation Division of Cardiovascular Diseases [facility] [email or web address] INVASIVE CARDIOVASCULAR PROC EDUREon 01-21-2024 [...] with fistula occlusion Kelvin Donohue MD, MPH Paper Bundler of Internal Medicine. Section of Advanced Heart Failure and Transplantation Division of Cardiovascular Diseases [facility] [email or web address] Table formatting from the original result was not included. Images from the original result were not included. George Styles Invasive Cardiology Cath Procedure Ordering Physician: KELVIN PACHECO Order #: [id number] Study Date: 01/20/2024 Patient Information Name MRN Description George Styles [id number] 53 y.o. male Location Name Address [facility] [address] [facility] [address] Physicians Panel Physicians Referring Physician Case Authorizing Physician LU Costello (Primary) Zuly Bruno, SENIOR DATA MODELER Kelvin Pacheco MD, LU Procedures RIGHT HEART CATHETERIZATION Indications Pre-transplant evaluation [...] with fistula occlusion Kelvin Donohue MD, MPH Paper Bundler of Internal Medicine. Section of Advanced Heart Failure and Transplantation Division of Cardiovascular Diseases [facility] [email or web address] Medical History Diagnosis Date Comment Source Acute renal failure CAD (coronary artery disease) Cirrhosis Dialysis patient T, Th, Sa- Started 06/01/2018 End stage renal disease 06/01/2018 Essential hypertension, benign Hepatic encephalopathy History of blood transfusion Liver cirrhosis Procedure The risks and alternatives of the procedure and sedation were explained. Informed consent was obtained. The patient was brought to the label printing machinist and placed on the table. The planned puncture sites were prepped and draped in the usual sterile fashion. Fluoro Dose Fluoro Dose: 0.2 Gy-cm^2 Complications Complications documented before study signed (01/21/2024 4:05 PM) No complications were associated with this study. Documented by LU Costello - 01/20/2024 11:09 AM Cardiac Chuck Boner Attending Physician Statement and Signature I have [...] Blood O (more content not included)... Normal [facility] MAGNESIUMon 01-21-2024 Interpretation and review of laboratory results Abnormal [facility] Magnesium [Mass/Vol] 1.5 mg/dL Low 1.6 - 2 .6 mg/dL [facility] Magnesium [Mass/Vol] 1.5 mg/dL Low 1.6-2.6 [facility] Comment on above: Performed By: #### C HM7, [facility], MGO #### [facility] (DEFAULT) [address] [place] [address] No Panel Informationon 01-21 [facility] TACROLIMUS LEVEL, TROUGH (IN E DRUG LEVEL)on 01-21-2024 Interpretation and review of laboratory results Normal [facility] Tacrolimus (Bld) [Mass/Vol] 7.2 ng/mL Bone Marrow Transplant: 4.0-12.0, Therapeutic: 5.0-15.0 [facility] Method performed is a chemiluminescent microparticle immunoasssay on the [employer] i2000. The range is based on experience at [facility] and users should be aware that target concentrations vary widely depending on concomitant therapy, time post-transplant, and desired degree of immunosuppression. [facility] Tacrolimus, Trough 7.2 ng/mL Normal Bone Susana ow Transplant: 4.0-12.0, Therapeutic: 5.0-15.0 [facility] Comment on above: Order Comment: Pleas e draw at specified interval PRIOR to dose. Do not hold dose to wait for level. Specimens batched twice per day, (M-F) and once per day weekendsMethod performed is a chemiluminescent microparticle immunoasssay on the [employer] i2000.The range is based on experience at [facility] and users should be aware that target concentrations vary widely depending on concomitant therapy, time post-transplant, and desired degree of immunosuppression. Performed By: #### C A, CHM7, HFP, IPB, MGO #### [facility] (DEFAULT) [address] [place] [address] CBC,PLATELETSon 01-20-2024 Erythrocyte distribution width (RBC) [Ratio] 13.8 % 10.9 - 14.3 % [facility] Hematocrit (Bld) [Volume fraction] 38.9 % Low 39.6 - 48.8 % [facility] Hemoglobin (Bld) [Mass/Vol] 12.5 g/dL Low 13.4 - 16.8 g/dL [facility] Interpretation and review of laboratory results Abnormal [facility] MCH (RBC) [Entitic mass] 28.0 pg 26.1 - 33.3 pg [facility] MCHC (RBC) [Mass/Vol] 32.1 g/dL 31.9 - 36.5 g/dL [facility] MCV (RBC) [Entitic vol] 87.2 fL 79.0 - 94.5 fL [facility] Platelet mean volume (Bld) [Entitic vol] 10.2 fL 8.7 - 12.3 fL [facility] Platelets (Bld) [#/Vol] 166 10*3/uL 146 - 337 K/uL [facility] RBC (Bld) [#/Vol] 4.46 10*6/uL [facility] WBC (Bld) [#/Vol] 3.79 10*3/uL 3.73 - 10. 10 K/uL [facility] Hematocrit (Bld) [Volume fraction] 38.9 % Low 39.6-48.8 [facility] Comment on above: Performed By: #### C A, CHM7, HFP, IPB, MGO #### [facility] (DEFAULT) [address] [place] [address] Hemoglobin (Bld) [Mass/Vol] 12.5 g/dL Low 13.4-16.8 [facility] Comment on above: Performed By: #### C A, CHM7, HFP, IPB, MGO #### [facility] (DEFAULT) [address] [place] [address] MCV (RBC) [Entitic vol] 87.2 fL Normal 79.0-94.5 [facility] Comment on above: Performed By: #### C A, CHM7, HFP, IPB, MGO #### [facility] (DEFAULT) [address] [place] [address] Mean Cell Hgb 28.0 pg Normal 26.1-33.3 [facility] Comment on above: Performed By: #### C A, CHM7, HFP, IPB, MGO #### [facility] (DEFAULT) [address] [place] [address] Mean Cell Hgb Conc 32.1 g/dL Normal 31.9-36.[address] [facility] Comment on above: Performed By: #### C A, CHM7, HFP, IPB, MGO #### [facility] (DEFAULT) [address] [place] [address] Platelet mean volume (Bld) [Entitic vol] 10.2 fL Normal 8.7-12.3 [facility] Comment on above: Performed By: #### Chinedu Feliz, CHM7, HFP, IPB, MGO #### [facility] (DEFAULT) [address] [place] [address] Platelets (Bld) [#/Vol] 166 10*3/uL Normal 146-337 [facility] Comment on above: Performed By: #### Chinedu Feliz, CHM7, HFP, IPB, MGO #### [facility] (DEFAULT) [address] [place] [address] RBC (Bld) [#/Vol] 4.46 10*6/uL Normal 4.38-5.83 [facility] Comment on above: Performed By: #### Chinedu Feliz, CHM7, HFP, IPB, MGO #### [facility] (DEFAULT) [address] [place] [address] RBC Distribution 13.8 % Normal 10.9-14.3 [facility] Comment on above: Performed By: #### Chinedu Feliz, CHM7, HFP, IPB, MGO #### [facility] (DEFAULT) [address] [place] [address] WBC (Bld) [#/Vol] 3.79 10*3/uL Normal 3.73-10.10 [facility] Comment on above: Performed By: #### Chinedu Feliz, CHM7, HFP, IPB, MGO #### [facility] (DEFAULT) [address] [place] [address] CHEM 7 (LYTES,BUN,CREA,GLUC) on 01-20-2024 Anion gap [Moles/Vol] 12 mmol/L 7 - 17 mmol/L [facility] Chloride [Moles/Vol] 105 mmol/L 98 - 10 8 mmol/L [facility] CO2 [Moles/Vol] 28 mmol/L 21 - 31 mmol/L [facility] Creatinine [Mass/Vol] 1.12 mg/dL 0.70 - 1.30 mg/dL [facility] eGFR, CKD-EPI, Male [address] - [address] [facility] Comment on above: Reported eGFR is bas ed on the CKD-EPI 2020 equation using creatinine, age, and sex. Glucose [Mass/Vol] 88 mg/dL 70 - 99 mg/dL [facility] Osmolality Calc [Osmolality] 294 [facility] Potassium [Moles/Vol] 3.8 mmol/L 3.5 - 5.0 mmol/L [facility] Sodium [Moles/Vol] 141 mmol/L 135 - 145 mmol/L [facility] Urea nitrogen [Mass/Vol] 15 mg/dL 7 - 25 mg/dL [facility] Urea nitrogen/Creatinine [Mass ratio] 13 mg/mg [facility] Anion gap [Moles/Vol] 12 mmol/L Normal 7-17 [facility] Comment on above: Performed By: #### C HM7, HFP, MGO #### [facility] (DEFAULT) [address] [place] [address] Chloride [Moles/Vol] 105 mmol/L Normal 98-108 [facility] Comment on above: Performed By: #### C HM7, HFP, MGO #### [facility] (DEFAULT) [address] [place] [address] CO2 [Moles/Vol] 28 mmol/L Normal 21-31 [facility] Comment on above: Performed By: #### C HM7, HFP, MGO #### [facility] (DEFAULT) [address] [place] [address] Creatinine [Mass/Vol] 1.12 mg/dL Normal 0.70-1.30 [facility] Comment on above: Performed By: #### Chinedu HM7, HFP, MGO #### [facility] (DEFAULT) [address] [place] [address] GFR/1.73 sq M.predicted among non-blacks MDRD (S/P/Bld) [Vol rate/Area] 79 mL/min/{1.73_m2} Normal >=60 [facility] Comment on above: Result Comment: Repo rted eGFR is based on the CKD-EPI 2020 equation using creatinine, age, and sex. Performed By: #### C HM7, HFP, MGO #### [facility] (DEFAULT) [address] [place] [address] Glucose [Mass/Vol] 88 mg/dL Normal 70-[address] [facility] Comment on above: Performed By: #### C HM7, HFP, MGO #### [facility] (DEFAULT) [address] [place] [address] Osmolality [Osmolality] 294 mosm/kg Normal 278-305 [facility] Comment on above: Performed By: #### C HM7, HFP, MGO #### [facility] (DEFAULT) [address] [place] [address] Potassium [Moles/Vol] 3.8 mmol/L Normal 3.5-5.0 [facility] Comment on above: Performed By: #### C HM7, HFP, MGO #### [facility] (DEFAULT) [address] [place] [address] Sodium [Moles/Vol] 141 mmol/L Normal 135-[address] [facility] Comment on above: Performed By: #### C HM7, HFP, MGO #### [facility] (DEFAULT) [address] [place] [address] Urea nitrogen [Mass/Vol] 15 mg/dL Normal 7-25 [facility] Comment on above: Performed By: #### C HM7, HFP, MGO #### [facility] (DEFAULT) [address] [place] [address] Urea nitrogen/Creatinine [Mass ratio] 13 mg/mg Normal [facility] Comment on above: Performed By: #### C HM7, HFP, MGO #### [facility] (DEFAULT) [address] [place] [address] Cardiac catheterization stud yon 01-20-2024 [facility] Radiology Study observation (narrative) [facility] Radiology Study observation (narrative) [facility] EBV BY PCR, QUANTITATIVE,BLO ODOrdered By: Charlotte Jensen on 01-20-2024 EBV DNA ESTELITA+probe (Unsp spec) [#/Vol] NINF [facility] Interpretation and review of laboratory results Normal [facility] This test was performed using a real time PCR assay. The dynamic range for this assay is 1000-5,000,000 IU/mL. A result <1000 IU/mL does not rule out the presence of EBV DNA in quantities below the sensitivity of this assay. This test was developed and its performance characteristics determined by [facility] at [facility]. It has not been cleared or approved by the FDA. The laboratory is regulated under CLIA as qualified to perform high-complexity testing. This test is used for clinical purposes. It should not be regarded as investigational or for research. [facility] HEPATIC FUNCTION PANELon Albumin [Mass/Vol] 3.7 g/dL 3.5 - 5.0 g/dL [facility] ALP [Catalytic activity/Vol] 73 U/L 32 - 126 U/L [facility] ALT [Catalytic activity/Vol] 12 U/L 10 - 52 U/L [facility] AST [Catalytic activity/Vol] 19 U/L 10 - 39 U/L [facility] Bilirubin [Mass/Vol] 2.1 mg/dL High NINF - 1.5 mg/dL [facility] Bilirubin.direct [Mass/Vol] 0.5 mg/dL High NINF - 0.3 mg/dL [facility] Interpretation and review of laboratory results Abnormal [facility] Protein [Mass/Vol] 6.1 g/dL Low 6.4 - 8.3 g/dL [facility] Albumin [Mass/Vol] 3.7 g/dL Normal 3.5-5.[address] [facility] Comment on above: Performed By: #### C HM7, HFP, MGO #### [facility] (DEFAULT) [address] [place] [address] ALP [Catalytic activity/Vol] 73 U/L Normal 32-126 [facility] Comment on above: Performed By: #### C HM7, HFP, MGO #### [facility] (DEFAULT) [address] [place] [address]598 ALT [Catalytic activity/Vol] 12 U/L Normal 10-52 [facility] Comment on above: Performed By: #### C HM7, HFP, MGO #### [facility] (DEFAULT) [address] [place] [address] AST [Catalytic activity/Vol] 19 U/L Normal 10-39 [facility] Comment on above: Performed By: #### Chinedu HM7, HFP, MGO #### [facility] (DEFAULT) [address] [place] [address] Bilirubin [Mass/Vol] 2.1 mg/dL High <1.5 [facility] Comment on above: Performed By: #### C HM7, HFP, MGO #### [facility] [facility] (DEFAULT[facility] [address] [place] [address] [phone] Bilirubin.indirect [Mass/Vol] 0.5 mg/dL High <0.3 [facility] Comment on above: Performed By: #### Chinedu HM7, HFP, MGO #### [facility] (DEFAULT) [address] [place] [address] [phone] Protein [Mass/Vol] 6.1 g/dL Low 6.4-8.[address] [facility] Comment on above: Performed By: #### C HM7, HFP, MGO #### [facility] (DEFAULT) [address] [place] [address] [phone] ITRACONAZOLE LEVELon 024 Hydroxyitraconazole 7.6 mcg/mL Normal [facility] Comment on above: Order Comment: Pleas e draw level at specified interval PRIOR to dose. Result Comment: REFERENCE VALUE No therapeutic range established; activity and serum concentration are similar to parent drug. ADDITIONAL INFORMATION This test was developed and its performance characteristics determined by [facility] in a manner consistent with CLIA requirements. This test has not been cleared or approved by the U.S. Food and Drug Administration. Test Performed by: [facility] [place] [address] Flattening Press Operator: Rosendo Bose M.D. Ph.D.; CLIA# [id number] Performed By: #### C Tray, CHM7, HFP, IPB, MGO #### [facility] (DEFAULT) [address] [place] [address] Itraconazole 6.0 mcg/mL Normal [facility] Comment on above: Order Comment: Pleas e draw level at specified interval PRIOR to dose. Result Comment: REFERENCE VALUE >0.5 (localized infection), >1.0 (systemic infection) Performed By: #### C A, CHM7, HFP, IPB, MGO #### [facility] (DEFAULT) [address] [place] [address] MAGNESIUMon 01-20-2024 Interpretation and review of laboratory results Normal [facility] Magnesium [Mass/Vol] 1.6 mg/dL 1.6 - 2 .6 mg/dL [facility] Magnesium [Mass/Vol] 1.6 mg/dL Normal 1.6-2.6 [facility] Comment on above: Performed By: #### C HM7, HFP, MGO #### [facility] (DEFAULT) [address] [place] [address] 38901 No Panel Informationon 01-20 [facility] POCT CO-OXIMETRYon Hemoglobin (Bld) [Mass/Vol] 12.8 g/dL Low 13.4 - 16.8 g/dL [facility] Interpretation and review of laboratory results Abnormal [facility] Oxyhemoglobin 69 % Low 94 - 98 % [facility] Ordering physician notified. Test performed at address of the patient encounter. [facility] Hemoglobin (Bld) [Mass/Vol] 13.3 g/dL Low 13.4 - 16.8 g/dL [facility] Interpretation and review of laboratory results Abnormal [facility] Oxyhemoglobin 69 % Low 94 - 98 % [facility] Ordering physician notified. Test performed at address of the patient encounter. [facility] PT,INR,PTTon 01-20-2024 aPTT Coag (PPP) [Time] 30.6 s [facility] INR Coag (Bld) [Relative time] 1.2 {INR} High 0.9 - 1.1 [facility] Interpretation and review of laboratory results Abnormal [facility] PT Coag (PPP) [Time] 15.5 s High [facility] aPTT Coag (Bld) [Time] 30.6 s Normal 24.0-34.3 [facility] Comment on above: Performed By: #### C A, CHM7, HFP, IPB, MGO #### [facility] (DEFAULT) [address] [place] [address] [phone] INR Coag (PPP) [Relative time] 1.2 {INR} High 0.9-1.1 [facility] Comment on above: Performed By: #### C A, CHM7, HFP, IPB, MGO #### [facility] (DEFAULT) [address] [place] [address] [phone] PT Coag (PPP) [Time] 15.5 s High 11.9-14.2 [facility] Comment on above: Performed By: #### C NATHANIEL Feliz, TAVO, IPB, MGO #### [facility] (DEFAULT) [address] [place] [address] [phone] TACROLIMUS LEVEL, TROUGH (IN E DRUG LEVEL)Ordered By: Yanira Marcum on 01-20-2024 Interpretation and review of laboratory results Normal [facility] Tacrolimus (Bld) [Mass/Vol] 7.7 ng/mL Bone Marrow Transplant: 4.0-12.0, Therapeutic: 5.0-15.0 [facility] Method performed is a chemiluminescent microparticle immunoasssay on the [employer] i2000. The range is based on experience at [facility] and users should be aware that target concentrations vary widely depending on concomitant therapy, time post-transplant, and desired degree of immunosuppression. [facility] TACROLIMUS LEVEL, TROUGH (IN E DRUG LEVEL)on 01-20-2024 Tacrolimus, Trough 7.7 ng/mL Normal [facility] Susana ow Transplant: 4.0-12.0, Therapeutic: 5.0-15.0 [facility] Comment on above: Order Comment: Pleas e draw at specified interval PRIOR to dose. Do not hold dose to wait for level. Specimens batched twice per day, (M-F) and once per day weekendsMethod performed is a chemiluminescent microparticle immunoasssay on the [employer] i2000.The range is based on experience at [facility] and users should be aware that target concentrations vary widely depending on concomitant therapy, time post-transplant, and desired degree of immunosuppression. Performed By: #### C NATHANIEL Feliz, TAVO, IPB, MGO #### [facility] (DEFAULT) [address] [place] [address] [phone] CBC,PLATELETSon 01-19-2024 Erythrocyte distribution width (RBC) [Ratio] 13.9 % 10.9 - 14.3 % [facility] Hematocrit (Bld) [Volume fraction] 37.5 % Low 39.6 - 48.8 % [facility] Hemoglobin (Bld) [Mass/Vol] 12.1 g/dL Low 13.4 - 16.8 g/dL [facility] Interpretation and review of laboratory results Abnormal [facility] MCH (RBC) [Entitic mass] 28.3 pg 26.1 - 33.3 pg [facility] MCHC (RBC) [Mass/Vol] 32.3 g/dL 31.9 - 36.5 g/dL [facility] MCV (RBC) [Entitic vol] 87.8 fL 79.0 - 94.5 fL [facility] Platelet mean volume (Bld) [Entitic vol] 10.4 fL 8.7 - 12.3 fL [facility] Platelets (Bld) [#/Vol] 163 10*3/uL 146 - 337 K/uL [facility] RBC (Bld) [#/Vol] 4.27 10*6/uL Low [facility] WBC (Bld) [#/Vol] 3.69 10*3/uL Low 3.73 - 10. 10 K/uL [facility] Hematocrit (Bld) [Volume fraction] 37.5 % Low 39.6-48.8 [facility] Comment on above: Performed By: #### C A, CHM7, HFP, IPB, MGO #### [facility] (DEFAULT) [address] [place] [address] [phone] Hemoglobin (Bld) [Mass/Vol] 12.1 g/dL Low 13.4-16.8 [facility] Comment on above: Performed By: #### C A, CHM7, HFP, IPB, MGO #### [facility] (DEFAULT) [address] [place] [address] 19058 MCV (RBC) [Entitic vol] 87.8 fL Normal 79.0-94.5 [facility] Comment on above: Performed By: #### C A, CHM7, HFP, IPB, MGO #### [facility] (DEFAULT) [address] [place] [address] 28335 Mean Cell Hgb 28.3 pg Normal 26.1-33.3 [facility] Comment on above: Performed By: #### C Tray, CHM7, HFP, IPB, MGO #### [facility] (DEFAULT) [address] [place] [address] 34849 Mean Cell Hgb Conc 32.3 g/dL Normal 31.9-36.[address] [facility] Comment on above: Performed By: #### C Tray, CHM7, HFP, IPB, MGO #### [facility] (DEFAULT) [address] [place] [address] 16280 Platelet mean volume (Bld) [Entitic vol] 10.4 fL Normal 8.7-12.3 [facility] Comment on above: Performed By: #### Chinedu Feliz, CHM7, HFP, IPB, MGO #### [facility] (DEFAULT) [address] [place] [address] 54937 Platelets (Bld) [#/Vol] 163 10*3/uL Normal 146-337 [facility] Comment on above: Performed By: #### Chinedu Feliz, CHM7, HFP, IPB, MGO #### [facility] (DEFAULT) [address] [place] [address] 63513 RBC (Bld) [#/Vol] 4.27 10*6/uL Low 4.38-5.83 [facility] Comment on above: Performed By: #### C Tray, CHM7, HFP, IPB, MGO #### [facility] (DEFAULT) [address] [place] [address] 44213 RBC Distribution 13.9 % Normal 10.9-14.3 [facility] Comment on above: Performed By: #### C A, CHM7, HFP, IPB, MGO #### [facility] (DEFAULT) [address] [place] [address] 94237 WBC (Bld) [#/Vol] 3.69 10*3/uL Low 3.73-10.10 [facility] Comment on above: Performed By: #### C A, CHM7, HFP, IPB, MGO #### [facility] (DEFAULT) [address] [place] [address] [phone] CHEM 7 (LYTES,BUN,CREA,GLUC) on 01-19-2024 Anion gap [Moles/Vol] 14 mmol/L 7 - 17 mmol/L [facility] Chloride [Moles/Vol] 106 mmol/L 98 - 10 8 mmol/L [facility] CO2 [Moles/Vol] 24 mmol/L 21 - 31 mmol/L [facility] Creatinine [Mass/Vol] 1.13 mg/dL 0.70 - 1.30 mg/dL [facility] eGFR, CKD-EPI, Male 79 - PINF [facility] Comment on above: Reported eGFR is bas ed on the CKD-EPI 2020 equation using creatinine, age, and sex. Glucose [Mass/Vol] 86 mg/dL 70 - 99 mg/dL [facility] Osmolality Calc [Osmolality] 293 [facility] Potassium [Moles/Vol] 3.8 mmol/L 3.5 - 5.0 mmol/L [facility] Sodium [Moles/Vol] 140 mmol/L 135 - 145 mmol/L [facility] Urea nitrogen [Mass/Vol] 16 mg/dL 7 - 25 mg/dL [facility] Urea nitrogen/Creatinine [Mass ratio] 14 mg/mg [facility] Anion gap [Moles/Vol] 14 mmol/L Normal 7-17 [facility] Comment on above: Performed By: #### C A, CHM7, HFP, IPB, MGO #### [facility] (DEFAULT) [address] [place] [address] 63582 Chloride [Moles/Vol] 106 mmol/L Normal 98-108 [facility] Comment on above: Performed By: #### C A, CHM7, HFP, IPB, MGO #### [facility] (DEFAULT) [address] [place] [address] 45825 CO2 [Moles/Vol] 24 mmol/L Normal 21-31 [facility] Comment on above: Performed By: #### C A, CHM7, HFP, IPB, MGO #### [facility] (DEFAULT) [address] [place] [address] 60455 Creatinine [Mass/Vol] 1.13 mg/dL Normal 0.70-1.30 [facility] Comment on above: Performed By: #### C A, CHM7, HFP, IPB, MGO #### [facility] (DEFAULT) [address] [place] [address] 52738 GFR/1.73 sq M.predicted among non-blacks MDRD (S/P/Bld) [Vol rate/Area] 78 mL/min/{1.73_m2} Normal >=60 [facility] Comment on above: Result Comment: Repo rted eGFR is based on the CKD-EPI 2020 equation using creatinine, age, and sex. Performed By: #### C A, CHM7, HFP, IPB, MGO #### [facility] (DEFAULT) [address] [place] [address] 38530 Glucose [Mass/Vol] 86 mg/dL Normal 70-[address] [facility] Comment on above: Performed By: #### C A, CHM7, HFP, IPB, MGO #### [facility] (DEFAULT) [address] [place] [address] 32262 Osmolality [Osmolality] 293 mosm/kg Normal 278-305 [facility] Comment on above: Performed By: #### C A, CHM7, HFP, IPB, MGO #### [facility] (DEFAULT) [address] [place] [address] 21884 Potassium [Moles/Vol] 3.8 mmol/L Normal 3.5-5.0 [facility] Comment on above: Performed By: #### C A, CHM7, HFP, IPB, MGO #### [facility] (DEFAULT) [address] [place] [address] 15036 Sodium [Moles/Vol] 140 mmol/L Normal 135-[address] [facility] Comment on above: Performed By: #### C A, CHM7, HFP, IPB, MGO #### [facility] (DEFAULT) [address] [place] [address] 02555 Urea nitrogen [Mass/Vol] 16 mg/dL Normal 7-25 [facility] Comment on above: Performed By: #### C A, CHM7, HFP, IPB, MGO #### [facility] (DEFAULT) [address] [place] [address] 20911 Urea nitrogen/Creatinine [Mass ratio] 14 mg/mg Normal [facility] Comment on above: Performed By: #### C A, CHM7, HFP, IPB, MGO #### [facility] (DEFAULT) [address] [place] [address] 32187 EBV BY PCR, QUANTITATIVE,BLO ODon 01-19-2024 Ebv By Pcr, Quant, Blood <1000 Normal <1000 [facility] Comment on above: Order Comment: This test was performed using a real time PCR assay. The dynamic range for this assay is 1000-5,000,000 IU/mL. A result <1000 IU/mL does not rule out the presence of EBV DNA in quantities below the sensitivity of this assay. This test was developed and its performance characteristics determined by [facility]. It has not been cleared or approved by the FDA. The laboratory is regulated under CLIA as qualified to perform high-complexity testing. This test is used for clinical purposes. It should not be regarded as investigational or for research. Performed By: #### C A, CHM7, HFP, IPB, MGO #### [facility] (DEFAULT) [address] [place] [address] 09249 HISTOPLASMA AND BLASTOMYCES ANTIGEN, ENZYME IMMUNOASSAY, SERMon 01-19-2024 Histoplasma/Blastomyce s Ag Result Not detected Not Detected [facility] Comment on above: No antigen from Hist oplasma or Blastomyces detected. False negative results may occur depending on extent of disease, and/or site of infection. Repeat testing on a new specimen if clinically indicated. Histoplasma/Blastomyce s Ag Value Not detected ng/mL [facility] Comment on above: ADDITIONAL INFORMATION This test was developed and its performance characteristics determined by [facility] in a manner consistent with CLIA requirements. This test has not been cleared or approved by the U.S. Food and Drug Administration. Test Performed by: [facility] [address] [place] [address] Flattening Press Operator: Rosendo Bose M.D. Ph.D.; CLIA# [id number] [facility] MAGNESIUMon 01-19-2024 Interpretation and review of laboratory results Normal [facility] Magnesium [Mass/Vol] 1.8 mg/dL 1.6 - 2 .6 mg/dL [facility] Magnesium [Mass/Vol] 1.8 mg/dL Normal 1.6-2.6 [facility] Comment on above: Performed By: #### C A, CHM7, HFP, IPB, MGO #### [facility] (DEFAULT) [address] [place] [address] No Panel Informationon 01-19 [facility] TACROLIMUS LEVEL, TROUGH (IN E DRUG LEVEL)Ordered By: Raymundo Mehta on 01-19-2024 Interpretation and review of laboratory results Normal [facility] Tacrolimus (Bld) [Mass/Vol] 6.8 ng/mL Bone Marrow Transplant: 4.0-12.0, Therapeutic: 5.0-15.0 [facility] Method performed is a chemiluminescent microparticle immunoasssay on the [employer] i2000. The range is based on experience at [facility] and users should be aware that target concentrations vary widely depending on concomitant therapy, time post-transplant, and desired degree of immunosuppression. [facility] TACROLIMUS LEVEL, TROUGH (IN E DRUG LEVEL)on 01-19-2024 Tacrolimus, Trough 6.8 ng/mL Normal Bone Susana ow Transplant: 4.0-12.0, Therapeutic: 5.0-15.0 [facility] Comment on above: Order Comment: Dilan gregory draw at specified interval PRIOR to dose. Do not hold dose to wait for level. Specimens batched twice per day, (M-F) and once per day weekendsMethod performed is a chemiluminescent microparticle immunoasssay on the [employer] i2000.The range is based on experience at [facility] and users should be aware that target concentrations vary widely depending on concomitant therapy, time post-transplant, and desired degree of immunosuppression. Performed By: #### C HM7, HFP, MGO #### [facility] (DEFAULT) [address] [place] [address] US AV fistulaOrdered By: Diana Reyes on 01-19-2024 [facility] Work Phone: US AV fistulaon 01-19-2024 Radiology Study observation (narrative) [facility] AFP TUMOR MARKEROrdered By: Francisca Alaniz on 01-18-2024 AFP.tumor marker [Mass/Vol] ng/mL NINF - 8.1 ng/mL [facility] Comment on above: This test was perfor med on the [employer] Immunoassay platform by [employer] which is a two-site sandwich chemiluminescent immunoassay. It is important to note that assays using different manufacturers and/or methods may not be comparable. Interpretation and review of laboratory results Normal [facility] CBC,PLATELETSon 01-18-2024 Erythrocyte distribution width (RBC) [Ratio] 13.9 % 10.9 - 14.3 % [facility] Hematocrit (Bld) [Volume fraction] 38.4 % Low 39.6 - 48.8 % [facility] Hemoglobin (Bld) [Mass/Vol] 12.1 g/dL Low 13.4 - 16.8 g/dL [facility] Interpretation and review of laboratory results Abnormal [facility] MCH (RBC) [Entitic mass] 27.8 pg 26.1 - 33.3 pg [facility] MCHC (RBC) [Mass/Vol] 31.5 g/dL Low 31.9 - 36.5 g/dL [facility] MCV (RBC) [Entitic vol] 88.3 fL 79.0 - 94.5 fL [facility] Platelet mean volume (Bld) [Entitic vol] 10.4 fL 8.7 - 12.3 fL [facility] Platelets (Bld) [#/Vol] 183 10*3/uL 146 - 337 K/uL [facility] RBC (Bld) [#/Vol] 4.35 10*6/uL Low [facility] WBC (Bld) [#/Vol] 3.66 10*3/uL Low 3.73 - 10. 10 K/uL [facility] Hematocrit (Bld) [Volume fraction] 38.4 % Low 39.6-48.8 [facility] Comment on above: Performed By: #### C Tray, CHM7, HFP, IPB, MGO #### [facility] (DEFAULT) [address] [place] [address] 11230 Hemoglobin (Bld) [Mass/Vol] 12.1 g/dL Low 13.4-16.8 [facility] Comment on above: Performed By: #### C Tray, CHM7, HFP, IPB, MGO #### [facility] (DEFAULT) [address] [place] [address] 97807 MCV (RBC) [Entitic vol] 88.3 fL Normal 79.0-94.5 [facility] Comment on above: Performed By: #### C A, CHM7, HFP, IPB, MGO #### [facility] (DEFAULT) [address] [place] [address] 54373 Mean Cell Hgb 27.8 pg Normal 26.1-33.3 [facility] Comment on above: Performed By: #### C A, CHM7, HFP, IPB, MGO #### [facility] (DEFAULT) [address] [place] [address] 14413 Mean Cell Hgb Conc 31.5 g/dL Low 31.9-36.[address] [facility] Comment on above: Performed By: #### C Tray, CHM7, HFP, IPB, MGO #### [facility] (DEFAULT) [address] [place] [address] 11140 Platelet mean volume (Bld) [Entitic vol] 10.4 fL Normal 8.7-12.3 [facility] Comment on above: Performed By: #### C A, CHM7, HFP, IPB, MGO #### [facility] (DEFAULT) [address] [place] [address] 28760 Platelets (Bld) [#/Vol] 183 10*3/uL Normal 146-337 [facility] Comment on above: Performed By: #### Chinedu Feliz, CHM7, HFP, IPB, MGO #### [facility] (DEFAULT) [address] [place] [address] 49831 RBC (Bld) [#/Vol] 4.35 10*6/uL Low 4.38-5.83 [facility] Comment on above: Performed By: #### Chinedu Feliz, CHM7, HFP, IPB, MGO #### [facility] (DEFAULT) [address] [place] [address] 46876 RBC Distribution 13.9 % Normal 10.9-14.3 [facility] Comment on above: Performed By: #### C A, CHM7, HFP, IPB, MGO #### [facility] (DEFAULT) [address] [place] [address] 32345 WBC (Bld) [#/Vol] 3.66 10*3/uL Low 3.73-10.10 [facility] Comment on above: Performed By: #### C A, CHM7, HFP, IPB, MGO #### [facility] (DEFAULT) [address] [place] [address] 21518 CHEM 7 (LYTES,BUN,CREA,GLUC) on 01-18-2024 Anion gap [Moles/Vol] 11 mmol/L 7 - 17 mmol/L [facility] Chloride [Moles/Vol] 108 mmol/L 98 - 10 8 mmol/L [facility] CO2 [Moles/Vol] 26 mmol/L 21 - 31 mmol/L [facility] Creatinine [Mass/Vol] 1.00 mg/dL 0.70 - 1.30 mg/dL [facility] eGFR, CKD-EPI, Male - PINF [facility] Comment on above: Reported eGFR is bas ed on the CKD-EPI 2020 equation using creatinine, age, and sex. Glucose [Mass/Vol] 89 mg/dL 70 - 99 mg/dL [facility] Osmolality Calc [Osmolality] 295 [facility] Potassium [Moles/Vol] 3.9 mmol/L 3.5 - 5.0 mmol/L [facility] Sodium [Moles/Vol] 141 mmol/L 135 - 145 mmol/L [facility] Urea nitrogen [Mass/Vol] 16 mg/dL 7 - 25 mg/dL [facility] Urea nitrogen/Creatinine [Mass ratio] 16 mg/mg [facility] Anion gap [Moles/Vol] 11 mmol/L Normal 7-17 [facility] Comment on above: Performed By: #### C HM7, HFP, MGO #### [facility] (DEFAULT) [address] [place] [address] Chloride [Moles/Vol] 108 mmol/L Normal 98-108 [facility] Comment on above: Performed By: #### C HM7, HFP, MGO #### [facility] (DEFAULT) [address] [place] [address] CO2 [Moles/Vol] 26 mmol/L Normal 21-31 [facility] Comment on above: Performed By: #### C HM7, HFP, MGO #### [facility] (DEFAULT) [address] [place] [address] Creatinine [Mass/Vol] 1.00 mg/dL Normal 0.70-1.30 [facility] Comment on above: Performed By: #### C HM7, HFP, MGO #### [facility] (DEFAULT) [address] [place] [address] 41601 eGFR, CKD-EPI, Male > Normal >=60 [facility] Comment on above: Result Comment: Repo rted eGFR is based on the CKD-EPI 2020 equation using creatinine, age, and sex. Performed By: #### C HM7, HFP, MGO #### [facility] (DEFAULT) [address] [place] [address] 68076 Glucose [Mass/Vol] 89 mg/dL Normal 70-[address] [facility] Comment on above: Performed By: #### C HM7, HFP, MGO #### [facility] (DEFAULT) [address] [place] [address] 80589 Osmolality [Osmolality] 295 mosm/kg Normal 278-305 [facility] Comment on above: Performed By: #### C HM7, HFP, MGO #### [facility] (DEFAULT) [address] [place] [address] 71129 Potassium [Moles/Vol] 3.9 mmol/L Normal 3.5-5.0 [facility] Comment on above: Performed By: #### C HM7, HFP, MGO #### [facility] (DEFAULT) [address] [place] [address] 75194 Sodium [Moles/Vol] 141 mmol/L Normal 135-[address] [facility] Comment on above: Performed By: #### C HM7, HFP, MGO #### [facility] (DEFAULT) [address] [place] [address] 27288 Urea nitrogen [Mass/Vol] 16 mg/dL Normal 7-25 [facility] Comment on above: Performed By: #### C HM7, HFP, MGO #### [facility] (DEFAULT) [address] [place] [address] 04672 Urea nitrogen/Creatinine [Mass ratio] 16 mg/mg Normal [facility] Comment on above: Performed By: #### C HM7, HFP, MGO #### [facility] (DEFAULT) [address] [place] [address] Cardiac echo study Procedure Ordered By: Gian Carlos on 01-18-2024 Ao ASC [facility] 1.63 [phone] Ao peak meliton 1.46 m/s [facility]: [phone] Ao SOV index 1.56 cm/m2 [facility]: [phone] Ao STJ index 1.25 cm/m2 [facility]: [phone] Ao VTI 35.74 cm [facility] Work [facility]: [phone] Ascending [facility] 3.39 [facility]: [phone] LVOT peak gradient 4 mmHg [facility] Work Phone: [phone] AV mean gradient 5 [facility]: [phone] AV peak gradient 9 mmHG [facility] Work Phone: [phone] AV valve area 3.09 cm2 [facility] Work Phone: [phone] [facility].73 [facility] Work Phone: [phone] VEGA (continuity Vmax) 3.01 cm2 [facility] Work Phone: [phone] VEGA (continuity VTI) 3.09 cm2 [facility] Work Phone: [phone] VEGA index (continuity Vmax) 1.45 m/s [facility] Work Phone: [phone] VEGA index (continuity VTI) 1.49 cm2/m2 [facility]: [phone] Avg e' pk meliton 0.07 m/s [facility] Work [facility]: [phone] Avg E/e' ratio 19.45 [facility] Work Phone: [phone] Body surface area Derived from formula 2.08 m2 [facility] Work Phone: [phone] BP EF 62 % [facility] Work Phone: [phone] DI (Vmax) 0.73 [facility] Work Phone: [phone] DI (VTI) 0.74 m/2 [facility] Work Phone: [phone] E wave decelartion time 180.38 msec [facility] Work Phone: [phone] e' lateral pk meliton 0.0789 m/s [facility] Work Phone: [phone] e' lateral pk meliton 0.08 m/s [facility] Work Phone: [phone] e' septal pk meliton 0.0653 m/s [facility] Work Phone: [phone] e' septal pk meliton 0.07 m/s [facility] Work Phone: [phone] E/A ratio 2.67 [facility] Work Phone: [phone] E/e' lateral ratio 17.62 [facility] Work Phone: [phone] E/e' septal ratio 21.29 [facility] Work Phone: [phone] EF SP 2CH 66 [facility] Work Phone: [phone] EF SP 4CH 58 [facility] Work Phone: [phone] FS 28 % 28 - 44 % [facility] Work Phone: [phone] IVC ostium 2.30 cm [facility] Work Phone: [phone] IVS 1.11 cm [facility] Work Phone: [phone] LA AREA 2CH 24.36 cm2 [facility] Work Phone: [phone] LA area 4CH 20.36 cm2 [facility] Work Phone: [phone] LA ESV BP (MOD) 64 [facility] Work Phone: [phone] LA ESV BP (MOD) index 31 mL/m2 [facility] Work Phone: [phone] LA ESV SP 2CH (MOD) 76 mL [facility] Work Phone: [phone] LA ESV SP 4CH (MOD) 53 [facility] Work Phone: [phone] LV EDV BP 180 mL [facility] Work Phone: [phone] LV EDV SP 2CH 190 mL [facility] Work Phone: [phone] LV EDV SP 4CH 166 mL [facility] Work Phone: [phone] LV ESV BP 69 mL [facility] Work Phone: [phone] LV ESV SP 2CH 65 mL [facility] Work Phone: [phone] LV ESV SP 4CH 70 mL [facility] Work Phone: [phone] LV mass 254.73 g [facility] Work Phone: [phone] LV Mass Index 122.5 g/m2 [facility] Work Phone: [phone] LV RWT 0.42 [facility] Work Phone: [phone] LV stroke volume BP (ml) 111 mL [facility] Work Phone: [phone] LV stroke volume index BP 53.37 mL/m2 [facility] Work Phone: [phone] LVIDD 5.53 cm [facility] Work Phone: [phone] LVIDS 3.97 cm [facility] Work Phone: [phone] LVOT area 4.15 cm2 [facility] Work Phone: [phone] LVOT diameter 2.30 cm [facility] Work Phone: [phone] LVOT peak meliton 1.06 m/s [facility] Work Phone: [phone] LVOT peak VTI 26.61 cm [facility] Work Phone: [phone] LVOT stroke volume 111 cm3 [facility] Work Phone: [phone] LVOT stroke volume index 53.13 ml/m2 [facility] Work Phone: [phone] Mr max meliton 4.21 m/s [facility] Work Phone: [phone] MR VTI 134.50 cm [facility] Work Phone: [phone] MV mean gradient 3 mmHg [facility] Work Phone: [phone] MV peak gradient 11 mmHg [facility] Work Phone: [phone] MV pk A meliton 0.52 m/s [facility] Work Phone: [phone] MV pk E meliton 1.39 m/s [facility] Work Phone: [phone] MV stenosis pressure 1/2 time 58.56 ms [facility] Work Phone: [phone] MV valve area by continuity eq 2.93 cm2 [facility] Work Phone: [phone] MV valve area p 1/2 method 3.76 cm2 [facility] Work Phone: [phone] MV VTI 37.70 cm [facility] Work Phone: [phone] MVA (continuity VTI) 2.92 cm [facility] Work Phone: [facility] AV VTI RATIO PRE STRESS 0.74 [facility] Work Phone: [facility] ECHO LV BIPLANE SYSTOLIC VOLUME INDEX 33.17 mL/m2 [facility] Work Phone: [facility] ECHO LV BP DIASTOLIC VOLUME INDEX 86.54 mL/m2 [facility] Work Phone: [facility] ECHO MR PEAK GRADIENT 70.94 mmHg [facility] Work Phone: PW 1.16 cm [facility] Work Phone: RA area 4CH (MOD) 14.50 cm2 [facility] Work Phone: RA vol index 4CH (MOD) 18.27 mL/m2 [facility] Work Phone: Right atrium volume 4 chamber method of disks 38 mL [facility] Work Phone: RV Area diastolic 33.20 cm2 [facility] Work Phone: RV Area systolic 21.30 cm2 [facility] Work Phone: RV basal diam 4.52 cm [facility] Work Phone: RV Fractional area change 35.8 % [facility] Work Phone: RV long diam 8.96 cm [facility] Work Phone: RV mid diam 3.70 cm [facility] Work Phone: RV S' 22.01 cm/s [facility] Work Phone: RVOT peak gradient 4 mmHg [facility] Work Phone: RVOT peak meliton 0.96 m/s [facility] Work Phone: RVOT peak VTI 20.86 cm [facility] Work Phone: [phone] Sinus 3.24 cm [facility] Work Phone: [phone] STJ 2.61 cm [facility] Work Phone: [phone] Stroke Volume 111 cm/mL [facility] Work Phone: [phone] Stroke volume index 53 [facility] Work Phone: [phone] TAPSE 2.19 cm [facility] Work Phone: [phone] [facility] Work Phone: Cardiac echo study [...] echocardiography study was performed. Imaging system used: Mipso. Indications Indications for study: shortness of breath. [facility] Radiology Study observation (narrative) [facility] ECHOCARDIOGRAMon 02-19-2024 Echocardiography ? Left Ventricle: Chamber size is [...] original result were not included. Facility [facility] Patient Information Patient Name George Styles [...] Role Read Date Gian Carlos MD Echo Phelps 01/18/2024 Left Heart Measurements LV - Systole [...] Height We (more content not included)... Normal [facility] HEPATIC FUNCTION PANELon Albumin [Mass/Vol] 3.5 g/dL 3.5 - 5.0 g/dL [facility] ALP [Catalytic activity/Vol] 70 U/L 32 - 126 U/L [facility] ALT [Catalytic activity/Vol] 8 U/L Low 10 - 52 U/L [facility] AST [Catalytic activity/Vol] 20 U/L 10 - 39 U/L [facility] Bilirubin [Mass/Vol] 1.7 mg/dL [facility]dL [facility] Bilirubin.direct [Mass/Vol] 0.4 mg/dL [facility] 0.[facility] mg/dL [facility] Protein [Mass/Vol] 6.0 g/dL Low 6.4 - 8.3 g/dL [facility] Albumin [Mass/Vol] 3.5 g/dL Normal 3.5-5.[address] [facility] Comment on above: Performed By: #### C HM7, HFP, MGO #### [facility] (DEFAULT) [address] [place] [address] ALP [Catalytic activity/Vol] 70 U/L Normal 32-126 [facility] Comment on above: Performed By: #### C HM7, HFP, MGO #### [facility] (DEFAULT) [address] [place] [address] ALT [Catalytic activity/Vol] 8 U/L Low 10-52 [facility] Comment on above: Performed By: #### Chinedu MEDLEY, HFP, MGO #### [facility] (DEFAULT) [address] [place] [address] 45913 AST [Catalytic activity/Vol] 20 U/L Normal 10-39 [facility] Comment on above: Performed By: #### Chinedu HMJessica, HFP, MGO #### [facility] (DEFAULT) [address] [place] [address] 94758 Bilirubin [Mass/Vol] 1.7 mg/dL High <1.5 [facility] Comment on above: Performed By: #### Chinedu HMJessica, HFP, MGO #### [facility] (DEFAULT) [address] [place] [address] 17169 Bilirubin.indirect [Mass/Vol] 0.4 mg/dL High <0.3 [facility] Comment on above: Performed By: #### Chinedu MEDLEY, HFP, MGO #### [facility] (DEFAULT) [address] [place] [address] 27183 Protein [Mass/Vol] 6.0 g/dL Low 6.4-8.[address] [facility] Comment on above: Performed By: #### Chinedu HMJessica, HFP, MGO #### [facility] (DEFAULT) [address] [place] [address] 25561 MAGNESIUMon 01-18-2024 Magnesium [Mass/Vol] 1.5 mg/dL Low 1.6 - 2 .6 mg/dL [facility] Magnesium [Mass/Vol] 1.5 mg/dL Low 1.6-2.6 [facility] Comment on above: Performed By: #### Chinedu HMJessica, HFP, MGO #### [facility] (DEFAULT) [address] [place] [address] 60910 No Panel Informationon 01-18 Interpretation and review of laboratory results Abnormal [facility] PT,INR,PTTon 01-18-2024 aPTT Coag (PPP) [Time] 30.0 s [facility] INR Coag (Bld) [Relative time] 1.1 {INR} 0.9 - 1.1 [facility] Interpretation and review of laboratory results Abnormal [facility] PT Coag (PPP) [Time] 14.5 s High [facility] aPTT Coag (Bld) [Time] 30.0 s Normal 24.0-34.3 [facility] Comment on above: Performed By: #### C A, CHM7, HFP, IPB, MGO #### [facility] (DEFAULT) [address] [place] [address] 17186 INR Coag (PPP) [Relative time] 1.1 {INR} Normal 0.9-1.1 [facility] Comment on above: Performed By: #### C A, CHM7, HFP, IPB, MGO #### [facility] (DEFAULT) [address] [place] [address] 06348 PT Coag (PPP) [Time] 14.5 s High 11.9-14.2 [facility] Comment on above: Performed By: #### C A, CHM7, HFP, IPB, MGO #### [facility] (DEFAULT) [address] [place] [address] 20528 TSH W/FT4 REFLEXon 4 Interpretation and review of laboratory results Normal [facility] TSH Qn 2.660 m[IU]/L [facility] TSH 2.660 uIU/mL Normal 0.550-4.780 [facility] Comment on above: Performed By: #### C HM7, HFP, MGO #### [facility] (DEFAULT) [address] [place] [address] 11847 AFP TUMOR MARKERon 4 AFP Tumor Marker <2.2 Normal <8.1 [facility] Comment on above: Result Comment: This test was performed on the [employer] IM Immunoassay platform by [employer] which is a two-site sandwich chemiluminescent immunoassay. It is important to note that assays using different manufacturers and/or methods may not be comparable. Performed By: #### C A, CHM7, HFP, IPB, MGO #### [facility] (DEFAULT) [address] [place] [address] DARYL AURIS SCREEN BY PCRO rdered By: Mynor Alejandro on 01-17-2024 Daryl auris Screen by PCR Not detected Not Detected [facility] Interpretation and review of laboratory results Normal [facility] This test was performed using a real-time PCR assay. This test was developed, and its performance characteristics determined by [facility] at [facility]. It has not been cleared or approved by the FDA. The laboratory is regulated under CLIA as qualified to perform high-complexity testing. This test is used for clinical purposes. It should not be regarded as investigational or for research. [facility] CBC,PLATELETSon 01-17-2024 Erythrocyte distribution width (RBC) [Ratio] 14.0 % 10.9 - 14.3 % [facility] Hematocrit (Bld) [Volume fraction] 37.2 % Low 39.6 - 48.8 % [facility] Hemoglobin (Bld) [Mass/Vol] 12.0 g/dL Low 13.4 - 16.8 g/dL [facility] Interpretation and review of laboratory results Abnormal [facility] MCH (RBC) [Entitic mass] 27.9 pg 26.1 - 33.3 pg [facility] MCHC (RBC) [Mass/Vol] 32.3 g/dL 31.9 - 36.5 g/dL [facility] MCV (RBC) [Entitic vol] 86.5 fL 79.0 - 94.5 fL [facility] Platelet mean volume (Bld) [Entitic vol] 10.5 fL 8.7 - 12.3 fL [facility] Platelets (Bld) [#/Vol] 159 10*3/uL 146 - 337 K/uL [facility] RBC (Bld) [#/Vol] 4.30 10*6/uL Low [facility] WBC (Bld) [#/Vol] 3.69 10*3/uL Low 3.73 - 10. 10 K/uL [facility] Hematocrit (Bld) [Volume fraction] 37.2 % Low 39.6-48.8 [facility] Comment on above: Performed By: #### C HM7, HFP, MGO #### [facility] (DEFAULT) [address] [place] [address] 68396 Hemoglobin (Bld) [Mass/Vol] 12.0 g/dL Low 13.4-16.8 [facility] Comment on above: Performed By: #### C HM7, HFP, MGO #### [facility] (DEFAULT) [address] [place] [address] 18786 MCV (RBC) [Entitic vol] 86.5 fL Normal 79.0-94.5 [facility] Comment on above: Performed By: #### C HM7, HFP, MGO #### [facility] (DEFAULT) [address] [place] [address] 65564 Mean Cell Hgb 27.9 pg Normal 26.1-33.3 [facility] Comment on above: Performed By: #### C HM7, HFP, MGO #### [facility] (DEFAULT) [address] [place] [address] 40526 Mean Cell Hgb Conc 32.3 g/dL Normal 31.9-36.[address] [facility] Comment on above: Performed By: #### C HM7, HFP, MGO #### [facility] (DEFAULT) [address] [place] [address] 88720 Platelet mean volume (Bld) [Entitic vol] 10.5 fL Normal 8.7-12.3 [facility] Comment on above: Performed By: #### C HM7, HFP, MGO #### [facility] (DEFAULT) [address] [place] [address] 83864 Platelets (Bld) [#/Vol] 159 10*3/uL Normal 146-337 [facility] Comment on above: Performed By: #### C HM7, HFP, MGO #### [facility] (DEFAULT) [address] [place] [address] 84032 RBC (Bld) [#/Vol] 4.30 10*6/uL Low 4.38-5.83 [facility] Comment on above: Performed By: #### C HM7, HFP, MGO #### [facility] (DEFAULT) [address] [place] [address] 73922 RBC Distribution 14.0 % Normal 10.9-14.3 [facility] Comment on above: Performed By: #### Chinedu HM7, HFP, MGO #### [facility] (DEFAULT) [address] [place] [address] 34309 WBC (Bld) [#/Vol] 3.69 10*3/uL Low 3.73-10.10 [facility] Comment on above: Performed By: #### Chinedu HM7, HFP, MGO #### [facility] (DEFAULT) [address] [place] [address] 37569 CHEM 7 (LYTES,BUN,CREA,GLUC) on 01-17-2024 Anion gap [Moles/Vol] 13 mmol/L 7 - 17 mmol/L [facility] Chloride [Moles/Vol] 109 mmol/L High 98 - 10 8 mmol/L [facility] CO2 [Moles/Vol] 21 mmol/L 21 - 31 mmol/L [facility] Creatinine [Mass/Vol] 1.04 mg/dL 0.70 - 1.30 mg/dL [facility] eGFR, CKD-EPI, Male 86 - PINF [facility] Comment on above: Reported eGFR is bas ed on the CKD-EPI 2020 equation using creatinine, age, and sex. Glucose [Mass/Vol] 82 mg/dL 70 - 99 mg/dL [facility] Osmolality Calc [Osmolality] 292 [facility] Potassium [Moles/Vol] 4.4 mmol/L 3.5 - 5.0 mmol/L [facility] Sodium [Moles/Vol] 139 mmol/L 135 - 145 mmol/L [facility] Urea nitrogen [Mass/Vol] 17 mg/dL 7 - 25 mg/dL [facility] Urea nitrogen/Creatinine [Mass ratio] 16 mg/mg [facility] Anion gap [Moles/Vol] 13 mmol/L Normal 7-17 [facility] Comment on above: Performed By: #### C HM7, HFP, MGO #### [facility] (DEFAULT) [address] [place] [address] 34380 Chloride [Moles/Vol] 109 mmol/L High 98-108 [facility] Comment on above: Performed By: #### Chinedu HM7, HFP, MGO #### [facility] (DEFAULT) [address] [place] [address] 26144 CO2 [Moles/Vol] 21 mmol/L Normal 21-31 [facility] Comment on above: Performed By: #### Chinedu HM7, HFP, MGO #### [facility] (DEFAULT) [address] [place] [address] 07511 Creatinine [Mass/Vol] 1.04 mg/dL Normal 0.70-1.30 [facility] Comment on above: Performed By: #### Chinedu HM7, HFP, MGO #### [facility] (DEFAULT) [address] [place] [address] 32222 GFR/1.73 sq M.predicted among non-blacks MDRD (S/P/Bld) [Vol rate/Area] 86 mL/min/{1.73_m2} Normal >=60 [facility] Comment on above: Result Comment: Repo rted eGFR is based on the CKD-EPI 2020 equation using creatinine, age, and sex. Performed By: #### C HM7, HFP, MGO #### [facility] (DEFAULT) [address] [place] [address] 07468 Glucose [Mass/Vol] 82 mg/dL Normal 70-[address] [facility] Comment on above: Performed By: #### C HM7, HFP, MGO #### [facility] (DEFAULT) [address] [place] [address] 08054 Osmolality [Osmolality] 292 mosm/kg Normal 278-305 [facility] Comment on above: Performed By: #### C HM7, HFP, MGO #### [facility] (DEFAULT) [address] [place] [address] 31664 Potassium [Moles/Vol] 4.4 mmol/L Normal 3.5-5.0 [facility] Comment on above: Performed By: #### C HM7, HFP, MGO #### [facility] (DEFAULT) [address] [place] [address] 53998 Sodium [Moles/Vol] 139 mmol/L Normal 135-[address] [facility] Comment on above: Performed By: #### C HM7, HFP, MGO #### [facility] (DEFAULT) [address] [place] [address] 75870 Urea nitrogen [Mass/Vol] 17 mg/dL Normal 7-25 [facility] Comment on above: Performed By: #### Chinedu HM7, HFP, MGO #### [facility] (DEFAULT) [address] [place] [address] 47283 Urea nitrogen/Creatinine [Mass ratio] 16 mg/mg Normal [facility] Comment on above: Performed By: #### C HM7, HFP, MGO #### [facility] (DEFAULT) [address] [place] [address] ABDOMEN/PELVIS WITHOUT CO NTRASTon 01-17-2024 CT [...] unremarkable. 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 Right lower quadrant [...] middle lobe. Trace left pleural effusion. Normal [facility] CT Abdomen and Pelvis WO geoff sosa 01-17-2024 IMPRESSION: 1. Since 08/31/2023, resolution of [...] unremarkable. 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 Right lower quadrant [...] unremarkable. 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 Right lower quadrant [...] the middle lobe. Trace left pleural effusion. [facility] Radiology Study observation (narrative) [facility] HEPATIC FUNCTION PANELon Albumin [Mass/Vol] 3.5 g/dL 3.5 - 5.0 g/dL [facility] ALP [Catalytic activity/Vol] 73 U/L 32 - 126 U/L [facility] ALT [Catalytic activity/Vol] 7 U/L Low 10 - 52 U/L [facility] AST [Catalytic activity/Vol] 25 U/L 10 - 39 U/L [facility] Bilirubin [Mass/Vol] 1.8 mg/dL High NINF - 1.5 mg/dL [facility] Bilirubin.direct [Mass/Vol] 0.3 mg/dL High NINF - 0.3 mg/dL [facility] Protein [Mass/Vol] 6.0 g/dL Low 6.4 - 8.3 g/dL [facility] Albumin [Mass/Vol] 3.5 g/dL Normal 3.5-5.[address] [facility] Comment on above: Performed By: #### C HM7, HFP, MGO #### [facility] (DEFAULT) [address] [place] [address] 93978 ALP [Catalytic activity/Vol] 73 U/L Normal 32-126 [facility] / [facility] Comment on above: Performed By: #### C HM7, HFP, MGO #### [facility] (DEFAULT) [address] [place] [address] 18658 ALT [Catalytic activity/Vol] 7 U/L Low 10-52 [facility] Comment on above: Performed By: #### C HM7, HFP, MGO #### [facility] (DEFAULT) [address] [place] [address] 36249 AST [Catalytic activity/Vol] 25 U/L Normal 10-39 [facility] Comment on above: Performed By: #### C HM7, HFP, MGO #### [facility] (DEFAULT) [address] [place] [address] 70653 Bilirubin [Mass/Vol] 1.8 mg/dL High <1.5 [facility] Comment on above: Performed By: #### Chinedu HM7, HFP, MGO #### [facility] (DEFAULT) [address] [place] [address] 32965 Bilirubin.indirect [Mass/Vol] 0.3 mg/dL High <0.3 [facility] Comment on above: Performed By: #### Chinedu HM7, HFP, MGO #### [facility] (DEFAULT) [address] [place] [address] 41146 Protein [Mass/Vol] 6.0 g/dL Low 6.4-8.[address] [facility] Comment on above: Performed By: #### C HM7, HFP, MGO #### [facility] (DEFAULT) [address] [address] HISTOPLASMA AND BLASTOMYCES ANTIGEN, ENZYME IMMUNOASSAY, SERMon 01-17-2024 Histoplasma/Blastomyce s Ag Result Not detected Normal Not Detected [facility] Comment on above: Result Comment: No a ntigen from Histoplasma or Blastomyces detected. False negative results may occur depending on extent of disease, and/or site of infection. Repeat testing on a new specimen if clinically indicated. Performed By: #### C Tray, CHM7, HFP, IPB, MGO #### [facility] (DEFAULT) [address] [address] Histoplasma/Blastomyce s Ag Value Not detected Normal [facility] Comment on above: Result Comment: ADDITIONAL INFORMATION This test was developed and its performance characteristics determined by [facility] in a manner consistent with CLIA requirements. This test has not been cleared or approved by the U.S. Food and Drug Administration. Test Performed by: [facility] [place] [address] Flattening Press Operator: Rosendo Bose M.D. Ph.D.; CLIA# [id number] Performed By: #### C Tray, CHM7, HFP, IPB, MGO #### [facility] (DEFAULT) [address] [address] MAGNESIUMon 01-17-2024 Interpretation and review of laboratory results Normal [facility] Magnesium [Mass/Vol] 1.7 mg/dL 1.6 - 2 .6 mg/dL [facility] Magnesium [Mass/Vol] 1.7 mg/dL Normal 1.6-2.6 [facility] Comment on above: Performed By: #### C HM7, HFP, MGO #### [facility] (DEFAULT) [address] [place] [address] [phone] No Panel Informationon 01-17 Interpretation and review of laboratory results Abnormal [facility] PT,INR,PTTon 01-17-2024 aPTT Coag (PPP) [Time] 29.9 s OS [facility] INR Coag (Bld) [Relative time] 1.1 {INR} 0.9 - 1.1 [facility] Interpretation and review of laboratory results Abnormal [facility] PT Coag (PPP) [Time] 14.5 s High [facility] aPTT Coag (Bld) [Time] 29.9 s Normal 24.0-34.3 [facility] Comment on above: Performed By: #### Chinedu MEDLEY, TAVO, MGO #### [facility] (DEFAULT) [address] [place] [phone] INR Coag (PPP) [Relative time] 1.1 {INR} Normal 0.9-1.1 [facility] Comment on above: Performed By: #### Chinedu HMJessica, HFP, MGO #### [facility] (DEFAULT) [address] [place] [address] 33665 PT Coag (PPP) [Time] 14.5 s High 11.9-14.2 [facility] Comment on above: Performed By: #### Chinedu HM7, HFP, MGO #### [facility] (DEFAULT) [address] [place] [address] [phone] B-TYPE NATRIURETIC PEPTIDE ( BRAIN)on 01-16-2024 Interpretation and review of laboratory results Abnormal [facility] Natriuretic peptide B (Bld) [Mass/Vol] 212 pg/mL High 0 - 100 pg/mL [facility] Natriuretic peptide B (Bld) [Mass/Vol] 212 pg/mL High 0-100 [facility] Comment on above: Performed By: #### Chinedu HM7, HFP, MGO #### [facility] (DEFAULT) [address] [place] [address] CALCIUMon 01-16-2024 Calcium [Mass/Vol] 8.5 mg/dL Low 8.6 - 10. 5 mg/dL [facility] Calcium [Mass/Vol] 8.5 mg/dL Low 8.6-10.[address] [facility] Comment on above: Performed By: #### C A, CHM7, HFP, IPB, MGO #### [facility] (DEFAULT) [address] [place] [address] DARYL AURIS SCREEN BY PCRo n 01-16-2024 Daryl auris Screen by PCR Not detected Normal Not Detected [facility] Comment on above: Order Comment: This test was performed using a real-time PCR assay. This test was developed, and its performance characteristics determined by [facility] at [facility]. It has not been cleared or approved by the FDA. The laboratory is regulated under CLIA as qualified to perform high-complexity testing. This test is used for clinical purposes. It should not be regarded as investigational or for research. Performed By: #### C HM7, HFP, MGO #### [facility] (DEFAULT) [address] [address] CBC AND ELECTRONIC DIFFon Basophils (Bld) [#/Vol] K/uL 0.00 - 0.09 K/uL [facility] Basophils/100 WBC (Bld) 0.6 % [facility] Differential cell count method Nom (Bld) Electronic Differential [facility] Eosinophils (Bld) [#/Vol] 0.09 10*3/uL 0.00 - 0.48 K/uL [facility] Eosinophils/100 WBC (Bld) 2.5 % [facility] Erythrocyte distribution width (RBC) [Ratio] 14.0 % 10.9 - 14.3 % [facility] Hematocrit (Bld) [Volume fraction] 37.4 % Low 39.6 - 48.8 % [facility] Hemoglobin (Bld) [Mass/Vol] 12.1 g/dL Low 13.4 - 16.8 g/dL [facility] Immature granulocytes (Bld) [#/Vol] K/uL NINF - 0.07 K/uL [facility] Immature granulocytes/100 WBC (Bld) 0.3 % [facility] Interpretation and review of laboratory results Abnormal [facility] Lymphocytes (Bld) [#/Vol] 1.16 10*3/uL 0.83 - 3.57 K/uL [facility] Lymphocytes/100 WBC (Bld) 32.0 % [facility] MCH (RBC) [Entitic mass] 28.4 pg 26.1 - 33.3 pg [facility] MCHC (RBC) [Mass/Vol] 32.4 g/dL 31.9 - 36.5 g/dL [facility] MCV (RBC) [Entitic vol] 87.8 fL 79.0 - 94.5 fL [facility] Monocytes (Bld) [#/Vol] 0.43 10*3/uL 0.24 - 0.93 K/uL [facility] Monocytes/100 WBC (Bld) 11.9 % [facility] Neutrophils (Bld) [#/Vol] 1.91 10*3/uL 1.57 - 6.19 K/uL [facility] Nucleated RBC/100 WBC (Bld) [Ratio] 0.0 % [facility] Platelet mean volume (Bld) [Entitic vol] 10.1 fL 8.7 - 12.3 fL [facility] Platelets (Bld) [#/Vol] 155 10*3/uL 146 - 337 K/uL [facility] RBC (Bld) [#/Vol] 4.26 10*6/uL Low [facility] Segmented neutrophils/100 WBC (Bld) 52.7 % [facility] WBC (Bld) [#/Vol] 3.62 10*3/uL Low 3.73 - 10. 10 K/uL [facility] Abs Baso Auto < Normal 0.00-0.09 [facility] Comment on above: Performed By: #### C HM7, HFP, MGO #### [facility] (DEFAULT) [address] [place] [address]20 Basophils/100 WBC (Bld) 0.6 % Normal [facility] Comment on above: Performed By: #### C HM7, HFP, MGO #### [facility] (DEFAULT) [address] [place] [address] DIFF STATUS Electronic Differential Normal [facility] Comment on above: Performed By: #### C HM7, HFP, MGO #### [facility] (DEFAULT) [address] [place] [address] 10856 Eosinophils (Bld) [#/Vol] 0.09 10*3/uL Normal 0.00-0.48 [facility] Comment on above: Performed By: #### C HM7, HFP, MGO #### [facility] (DEFAULT) [address] [place] [address] 60152 Eosinophils/100 WBC (Bld) 2.5 % Normal [facility] Comment on above: Performed By: #### C HM7, HFP, MGO #### [facility] (DEFAULT) [address] [place] [address] Hematocrit (Bld) [Volume fraction] 37.4 % Low 39.6-48.8 [facility] Comment on above: Performed By: #### C HM7, HFP, MGO #### [facility] (DEFAULT) [address] [place] [address] Hemoglobin (Bld) [Mass/Vol] 12.1 g/dL Low 13.4-16.8 [facility] Comment on above: Performed By: #### C HM7, HFP, MGO #### [facility] (DEFAULT) [address] [place] [address] 32028 Immature Grans % 0.3 % Normal [facility] Comment on above: Performed By: #### C HM7, HFP, MGO #### [facility] (DEFAULT) [address] [place] [address] 22817 Immature Grans Absolute < Normal <=0.07 [facility] Comment on above: Performed By: #### C HM7, HFP, MGO #### [facility] (DEFAULT) [address] [place] [address] 75470 Lymphocytes (Bld) [#/Vol] 1.16 10*3/uL Normal 0.83-3.57 [facility] Comment on above: Performed By: #### C HM7, HFP, MGO #### [facility] (DEFAULT) [address] [place] [address] 54516 Lymphocytes/100 WBC (Bld) 32.0 % Normal [facility] Comment on above: Performed By: #### C HM7, HFP, MGO #### [facility] (DEFAULT) [address] [place] [address] 19881 MCV (RBC) [Entitic vol] 87.8 fL Normal 79.0-94.5 [facility] Comment on above: Performed By: #### C HM7, HFP, MGO #### [facility] (DEFAULT) [address] [place] [address] 48757 Mean Cell Hgb 28.4 pg Normal 26.1-33.3 [facility] Comment on above: Performed By: #### C HM7, HFP, MGO #### [facility] (DEFAULT) [address] [place] [address] 13124 Mean Cell Hgb Conc 32.4 g/dL Normal 31.9-36.[address] [facility] Comment on above: Performed By: #### C HM7, HFP, MGO #### [facility] (DEFAULT) [address] [place] [address] 33691 Monocytes (Bld) [#/Vol] 0.43 10*3/uL Normal 0.24-0.93 [facility] Comment on above: Performed By: #### C HM7, HFP, MGO #### [facility] (DEFAULT) [address] [place] [address] 38961 Monocytes/100 WBC (Bld) 11.9 % Normal [facility] Comment on above: Performed By: #### C HM7, HFP, MGO #### [facility] (DEFAULT) [address] [place] [address] 92426 Nucleated RBC 0.0 /100 WBC Normal <=0.2 [facility] Comment on above: Performed By: #### C HM7, HFP, MGO #### [facility] (DEFAULT) [address] [place] [address] Platelet mean volume (Bld) [Entitic vol] 10.1 fL Normal 8.7-12.3 [facility] Comment on above: Performed By: #### C HM7, HFP, MGO #### [facility] (DEFAULT) [address] [place] [address] 55891 Platelets (Bld) [#/Vol] 155 10*3/uL Normal 146-337 [facility] Comment on above: Performed By: #### C HM7, HFP, MGO #### [facility] (DEFAULT) [address] [place] [address] 15461 RBC (Bld) [#/Vol] 4.26 10*6/uL Low 4.38-5.83 [facility] Comment on above: Performed By: #### C HM7, HFP, MGO #### [facility] (DEFAULT) [address] [place] [address] 23124 RBC Distribution 14.0 % Normal 10.9-14.3 [facility] Comment on above: Performed By: #### C HM7, HFP, MGO #### [facility] (DEFAULT) [address] [place] [address] 58482 Segs + Bands Auto 52.7 % Normal [facility] Comment on above: Performed By: #### C HM7, HFP, MGO #### [facility] (DEFAULT) [address] [place] [address] 86182 Segs + Bands,Absolute Auto 1.91 K/uL Normal 1.57-6.19 [facility] Comment on above: Performed By: #### C HM7, HFP, MGO #### [facility] (DEFAULT) [address] [place] [address] WBC (Bld) [#/Vol] 3.62 10*3/uL Low 3.73-10.10 [facility] Comment on above: Performed By: #### C HM7, HFP, MGO #### [facility] (DEFAULT) [address] [place] [address] CHEM 7 (LYTES,BUN,CREA,GLUC) on 01-16-2024 Anion gap [Moles/Vol] 11 mmol/L 7 - 17 mmol/L [facility] Chloride [Moles/Vol] 108 mmol/L 98 - 10 8 mmol/L [facility] CO2 [Moles/Vol] 24 mmol/L 21 - 31 mmol/L [facility] Creatinine [Mass/Vol] 1.04 mg/dL 0.70 - 1.30 mg/dL [facility] eGFR, CKD-EPI, Male 86 - PINF [facility] Comment on above: Reported eGFR is bas ed on the CKD-EPI 2020 equation using creatinine, age, and sex. Glucose [Mass/Vol] 95 mg/dL 70 - 99 mg/dL [facility] Osmolality Calc [Osmolality] [facility] Potassium [Moles/Vol] 4.0 mmol/L 3.5 - 5.0 mmol/L [facility] Sodium [Moles/Vol] 139 mmol/L 135 - 145 mmol/L [facility] Urea nitrogen [Mass/Vol] 19 mg/dL 7 - 25 mg/dL [facility] Urea nitrogen/Creatinine [Mass ratio] 18 mg/mg [facility] Anion gap [Moles/Vol] 11 mmol/L Normal - Coi [facility] Comment on above: Performed By: #### C A, CHM7, HFP, IPB, MGO #### [facility] (DEFAULT) [address] [place] [address]55 Chloride [Moles/Vol] 108 mmol/L Normal 98-108 [facility] Comment on above: Performed By: #### C A, CHM7, HFP, IPB, MGO #### [facility] (DEFAULT) [address] [place] [address] CO2 [Moles/Vol] 24 mmol/L Normal 21-31 [facility] Comment on above: Performed By: #### C A, CHM7, HFP, IPB, MGO #### [facility] (DEFAULT) [address] [place] [address] Creatinine [Mass/Vol] 1.04 mg/dL Normal 0.70-1.30 [facility] Comment on above: Performed By: #### C A, CHM7, HFP, IPB, MGO #### [facility] (DEFAULT) [address] [place] [address]888 GFR/1.73 sq M.predicted among non-blacks MDRD (S/P/Bld) [Vol rate/Area] 86 mL/min/{1.73_m2} Normal >=60 [facility] Comment on above: Result Comment: Repo rted eGFR is based on the CKD-EPI 2020 equation using creatinine, age, and sex. Performed By: #### C A, CHM7, HFP, IPB, MGO #### [facility] (DEFAULT) [address] [place] [address] 31149 Glucose [Mass/Vol] 95 mg/dL Normal 70-[address] [facility] Comment on above: Performed By: #### C A, CHM7, HFP, IPB, MGO #### [facility] (DEFAULT) [address] [place] [address]908 Osmolality [Osmolality] 293 mosm/kg Normal 278-305 [facility] Comment on above: Performed By: #### C A, CHM7, HFP, IPB, MGO #### [facility] (DEFAULT) [address] [place] [address]32 Potassium [Moles/Vol] 4.0 mmol/L Normal 3.5-5.0 [facility] Comment on above: Performed By: #### C A, CHM7, HFP, IPB, MGO #### [facility] (DEFAULT) [address] [place] [address], [place] [address] Sodium [Moles/Vol] 139 mmol/L Normal 135-[address] [facility] Comment on above: Performed By: #### C A, CHM7, HFP, IPB, MGO #### [facility] (DEFAULT) [address] [place] [address] 14774 Urea nitrogen [Mass/Vol] 19 mg/dL Normal 7-25 [facility] Comment on above: Performed By: #### C A, CHM7, HFP, IPB, MGO #### [facility] (DEFAULT) [address] [place] [address] 18994 Urea nitrogen/Creatinine [Mass ratio] 18 mg/mg Normal [facility] Comment on above: Performed By: #### C A, CHM7, HFP, IPB, MGO #### [facility] (DEFAULT) [address] [place] [address] D-DIMER,QUANTITATIVEOrdered By: Shaji Kelly on 01-16-2024 Fibrin D-dimer FEU (PPP) [Mass/Vol] 0.67 [facility] Comment on above: The D-Dimer assay is intended for use in conjuction with a clinical pretest probability (PTP) assessment model to exclude pulmonary embolism (PE) and as an aid in the diagnosis of Deep Vein Thrombosis (DVT) in outpatients suspected of PE or DVT. For the assay in use at [facility] ([facility]), a cutoff of <0.50 mcg/mL has a Negative Predictive Value of 99.7% for exclusion of DVT in low and moderate PTP patients. Interpretation and review of laboratory results Abnormal [facility] D-DIMER,QUANTITATIVEon 01-16 D-Dimer, High Sensitivity 0.67 mcg/mL FEU High <0.50 [facility] Comment on above: Result Comment: The D-Dimer assay is intended for use in conjuction with a clinical pretest probability (PTP) assessment model to exclude pulmonary embolism (PE) and as an aid in the diagnosis of Deep Vein Thrombosis (DVT) in outpatients suspected of PE or DVT. For the assay in use at [facility] ([facility]), a cutoff of <0.50 mcg/mL has a Negative Predictive Value of 99.7% for exclusion of DVT in low and moderate PTP patients. Performed By: #### C HM7, HFP, MGO #### [facility] (DEFAULT) [address] [place] [address] HEPATIC FUNCTION PANELon Albumin [Mass/Vol] 3.7 g/dL 3.5 - 5.0 g/dL [facility] ALP [Catalytic activity/Vol] 70 U/L 32 - 126 U/L [facility] ALT [Catalytic activity/Vol] 8 U/L Low 10 - 52 U/L [facility] AST [Catalytic activity/Vol] 21 U/L 10 - 39 U/L [facility] Bilirubin [Mass/Vol] 1.9 mg/dL High NINF - 1.5 mg/dL [facility] Bilirubin.direct [Mass/Vol] 0.4 mg/dL High NINF - 0.3 mg/dL [facility] Protein [Mass/Vol] 6.1 g/dL Low 6.4 - 8.3 g/dL [facility] Albumin [Mass/Vol] 3.7 g/dL Normal 3.5-5.[address] [facility] Comment on above: Performed By: #### C A, CHM7, HFP, IPB, MGO #### [facility] (DEFAULT) [address] [address] ALP [Catalytic activity/Vol] 70 U/L Normal 32-126 [facility] Comment on above: Performed By: #### C A, CHM7, HFP, IPB, MGO #### [facility] (DEFAULT) [address] [place] [address] 80061 ALT [Catalytic activity/Vol] 8 U/L Low 10-52 [facility] Comment on above: Performed By: #### C A, CHM7, HFP, IPB, MGO #### [facility] (DEFAULT) [address] [place] [address] 90082 AST [Catalytic activity/Vol] 21 U/L Normal 10-39 [facility] Comment on above: Performed By: #### C A, CHM7, HFP, IPB, MGO #### [facility] (DEFAULT) [address] [place] [address] 92423 Bilirubin [Mass/Vol] 1.9 mg/dL High <1.5 [facility] Comment on above: Performed By: #### C A, CHM7, HFP, IPB, MGO #### [facility] (DEFAULT) [address] [place] [address] 75490 Bilirubin.indirect [Mass/Vol] 0.4 mg/dL High <0.3 [facility] Comment on above: Performed By: #### C A, CHM7, HFP, IPB, MGO #### [facility] (DEFAULT) [address] [place] [address] 72814 Protein [Mass/Vol] 6.1 g/dL Low 6.4-8.[address] [facility] Comment on above: Performed By: #### C A, CHM7, HFP, IPB, MGO #### [facility] (DEFAULT) [address] [place] [address] 50058 MAGNESIUMon 01-16-2024 Magnesium [Mass/Vol] 1.7 mg/dL 1.6 - 2 .6 mg/dL [facility] Magnesium [Mass/Vol] 1.7 mg/dL Normal 1.6-2.6 [facility] Comment on above: Performed By: #### C A, CHM7, HFP, IPB, MGO #### [facility] (DEFAULT) [address] [place] [address] 99506 No Panel Informationon 01-16 Interpretation and review of laboratory results Abnormal [facility] Interpretation and review of laboratory results Normal [facility] PHOSPHATE, INORGANICon 01-16 Phosphate [Mass/Vol] 4.1 mg/dL 2.2 - 4 .6 mg/dL [facility] Phosphorous 4.1 mg/dL Normal 2.2-4.6 [facility] Comment on above: Performed By: #### C A, CHM7, TAVO, JO ANN MGO #### [facility] (DEFAULT) [address] [place] [address] 25231 PT,INR,PTTon 01-16-2024 aPTT Coag (PPP) [Time] 29.6 s [facility] INR Coag (Bld) [Relative time] 1.2 {INR} High 0.9 - 1.1 [facility] Interpretation and review of laboratory results Abnormal [facility] PT Coag (PPP) [Time] 14.9 s High [facility] aPTT Coag (Bld) [Time] 29.6 s Normal 24.0-34.3 [facility] Comment on above: Performed By: #### Chinedu HMJessica, TAVO, MGO #### [facility] (DEFAULT) [address] [place] [address] [phone] INR Coag (PPP) [Relative time] 1.2 {INR} High 0.9-1.1 [facility] Comment on above: Performed By: #### C HMJessica, TAVO, MGO #### [facility] (DEFAULT) [address] [place] [address] [phone] PT Coag (PPP) [Time] 14.9 s High 11.9-14.2 [facility] Comment on above: Performed By: #### C HMJessica, HFP, MGO #### [facility] (DEFAULT) [address] [address] TACROLIMUS LEVEL, TROUGH (IN E DRUG LEVEL)Ordered By: Jimy Castillo on 01-16-2024 Interpretation and review of laboratory results Normal [facility] Tacrolimus (Bld) [Mass/Vol] 5.7 ng/mL Bone Marrow Transplant: 4.0-12.0, Therapeutic: 5.0-15.0 [facility] Method performed is a chemiluminescent microparticle immunoasssay on the [employer] i2000. The range is based on experience at [facility] and users should be aware that target concentrations vary widely depending on concomitant therapy, time post-transplant, and desired degree of immunosuppression. [facility] TACROLIMUS LEVEL, TROUGH (IN E DRUG LEVEL)on 01-16-2024 Tacrolimus, Trough 5.7 ng/mL Normal Bone [place] ow Transplant: 4.0-12.0, Therapeutic: 5.0-15.0 [facility] Comment on above: Order Comment: Pleas e draw at specified interval PRIOR to dose. Do not hold dose to wait for level. Specimens batched twice per day, (M-F) and once per day weekendsMethod performed is a chemiluminescent microparticle immunoasssay on the [employer] i2000.The range is based on experience at [facility] and users should be aware that target concentrations vary widely depending on concomitant therapy, time post-transplant, and desired degree of immunosuppression. Performed By: #### C A, CHM7, HFP, IPB, MGO #### [facility] (DEFAULT) [address] [place], [place] [id number] US ABDOMEN LIVER DOPPLERon 0 01-16-2024 US [...] effusion. Trace right upper quadrant ascites. Normal [facility] US.doppler Abdominal vessels on 01-16-2024 IMPRESSION: [...] Trace right upper quadrant ascites. [facility] Radiology Study observation (narrative) [facility] US.doppler Abdominal vessels Ordered By: Iona Duran on 01-16-2024 [facility] Work Phone: XR CHEST PA [...] Normal IMPRESSION: Moderate right pleural effusion. Normal [facility] XR Chest PA and Lateralon IMPRESSION: [...] IMPRESSION: Moderate right pleural effusion. [facility] Radiology Study observation (narrative) [facility] XR Chest PA and LateralOrder ed By: Daisha Patterson on 01-16-2024 [facility] Work Phone: ALL CBC WITH AUTO DIFFon BASOPHILS ABSOLUTE AUTO 0.0 [facility] Basophils/100 WBC (Bld) 0.5 % 0.2 - 2.0 % [facility] Eosinophils/100 WBC (Bld) 2.8 % 0.9 - 7.0 % [facility] Erythrocyte distribution width (RBC) [Ratio] 13.8 % 11.0 - 15.0 % [facility] Hematocrit (Bld) [Volume fraction] 43.7 % 42.0 - 54.0 % [facility] Hemoglobin (Bld) [Mass/Vol] 14.0 g/dL 14.0 - 18.0 g/dL [facility] IMMATURE GRANULOCYTES ABS AUTO 0.01 [facility] Immature granulocytes/100 WBC (Bld) 0.3 % 0.0 - 0.5 % [facility] LYMPHOCYTES ABSOLUTE AUTO 1.5 [facility] Lymphocytes/100 WBC (Bld) 37.5 % 20.5 - 60.0 % [facility] MCH (RBC) [Entitic mass] 28.4 pg 25.9 - 34.0 pg [facility] MCHC (RBC) [Mass/Vol] 32.0 g/dL 29.9 - 35.2 g/dL [facility] MCV (RBC) [Entitic vol] 88.6 fL 80.0 - 94.0 fL [facility] MONOCYTES ABSOLUTE AUTO 0.5 [facility] Monocytes/100 WBC (Bld) 11.9 % 1.7 - 12.0 % [facility] NEUTROPHILS ABSOLUTE AUTO 1.9 [facility] Neutrophils/100 WBC (Bld) 47.0 % 43.0 - 75.0 % [facility] Platelet mean volume (Bld) [Entitic vol] 10.3 fL 9.5 - 13.5 fL [facility] TBH EO # 0.1 [facility] TBH PLT 180 [facility] RBC 4.93 [facility] TB WBC 4.0 [facility] ALL CBC WITH AUTO DIFFon BASOPHILS ABSOLUTE AUTO 0.0 [facility] Basophils/100 WBC (Bld) 0.5 % 0.2 - 2.0 % [facility] Eosinophils/100 WBC (Bld) 2.6 % 0.9 - 7.0 % [facility] Erythrocyte distribution width (RBC) [Ratio] 13.5 % 11.0 - 15.0 % [facility] Hematocrit (Bld) [Volume fraction] 43.8 % 42.0 - 54.0 % [facility] Hemoglobin (Bld) [Mass/Vol] 14.0 g/dL 14.0 - 18.0 g/dL [facility] IMMATURE GRANULOCYTES ABS AUTO 0.00 [facility] Immature granulocytes/100 WBC (Bld) 0.0 % 0.0 - 0.5 % [facility] Interpretation and review of laboratory results Abnormal [facility] LYMPHOCYTES ABSOLUTE AUTO 1.8 [facility] Lymphocytes/100 WBC (Bld) 45.2 % 20.5 - 60.0 % [facility] MCH (RBC) [Entitic mass] 27.9 pg 25.9 - 34.0 pg [facility] MCHC (RBC) [Mass/Vol] 32.0 g/dL 29.9 - 35.2 g/dL [facility] MCV (RBC) [Entitic vol] 87.4 fL 80.0 - 94.0 fL [facility] MONOCYTES ABSOLUTE AUTO 0.4 [facility] Monocytes/100 WBC (Bld) 9.6 % 1.7 - 12.0 % [facility] NEUTROPHILS ABSOLUTE AUTO 1.6 [facility] Neutrophils/100 WBC (Bld) 42.1 % Low 43.0 - 75.0 % [facility] Platelet mean volume (Bld) [Entitic vol] 9.8 fL 9.5 - 13.5 fL [facility] EO # 0.1 [facility] PLT 180 [facility] RBC 5.01 [facility] WBC 3.9 Low [facility] CHEM 7 (LYTES,BUN,CREA,GLUC) on 09-11-2023 Anion gap [Moles/Vol] 13 mmol/L 7 - 17 mmol/L [facility] Chloride [Moles/Vol] 111 mmol/L High 98 - 10 8 mmol/L [facility] CO2 [Moles/Vol] 20 mmol/L Low 21 - 31 mmol/L [facility] Creatinine [Mass/Vol] 1.13 mg/dL 0.70 - 1.30 mg/dL [facility] eGFR, CKD-EPI, Male 78 - PINF [facility] Glucose [Mass/Vol] 109 mg/dL High 70 - 99 mg/dL [facility] Interpretation and review of laboratory results Abnormal [facility] Osmolality Calc [Osmolality] 295 [facility] Potassium [Moles/Vol] 4.3 mmol/L 3.5 - 5.0 mmol/L [facility] Sodium [Moles/Vol] 140 mmol/L 135 - 145 mmol/L [facility] Urea nitrogen [Mass/Vol] 16 mg/dL 7 - 25 mg/dL [facility] Urea nitrogen/Creatinine [Mass ratio] 14 mg/mg [facility] Anion gap [Moles/Vol] 13 mmol/L Normal 7-17 [facility] Comment on above: Performed By: #### C Tray, CHM7, HFP, IPB, MGO #### [facility] (DEFAULT) [address] [place] [address] Chloride [Moles/Vol] 111 mmol/L High 98-108 [facility] Comment on above: Performed By: #### C Tray, CHM7, HFP, IPB, MGO #### [facility] (DEFAULT) [address] [place] [address] 70757 CO2 [Moles/Vol] 20 mmol/L Low 21-31 [facility] Comment on above: Performed By: #### C A, CHM7, HFP, IPB, MGO #### [facility] (DEFAULT) [address] [place] [address]29 Creatinine [Mass/Vol] 1.13 mg/dL Normal 0.70-1.30 [facility] Comment on above: Performed By: #### C A, CHM7, HFP, IPB, MGO #### [facility] (DEFAULT) [address] [place] [address]9700 GFR/1.73 sq M.predicted among non-blacks MDRD (S/P/Bld) [Vol rate/Area] 78 mL/min/{1.73_m2} Normal >=60 [facility] Comment on above: Result Comment: Repo rted eGFR is based on the CKD-EPI 2020 equation using creatinine, age, and sex. Performed By: #### C A, CHM7, HFP, IPB, MGO #### [facility] (DEFAULT) [address] [place] [address] Glucose [Mass/Vol] 109 mg/dL High 70-[address] [facility] Comment on above: Performed By: #### C A, CHM7, HFP, IPB, MGO #### [facility] (DEFAULT) [address] [place] [address]487 Osmolality [Osmolality] 295 mosm/kg Normal 278-305 [facility] Comment on above: Performed By: #### C A, CHM7, HFP, IPB, MGO #### [facility] (DEFAULT) [address] [place] [address] 94000 Potassium [Moles/Vol] 4.3 mmol/L Normal 3.5-5.0 [facility] Comment on above: Performed By: #### C A, CHM7, HFP, IPB, MGO #### [facility] (DEFAULT) [address] [place] [address] 44656 Sodium [Moles/Vol] 140 mmol/L Normal 135-[address] [facility] Comment on above: Performed By: #### C A, CHM7, HFP, IPB, MGO #### [facility] (DEFAULT) [address] [place] [address]258 Urea nitrogen [Mass/Vol] 16 mg/dL Normal 7-25 [facility] Comment on above: Performed By: #### C A, CHM7, HFP, IPB, MGO #### [facility] (DEFAULT) [address] [place] [address] 03866 Urea nitrogen/Creatinine [Mass ratio] 14 mg/mg Normal [facility] Comment on above: Performed By: #### C A, CHM7, HFP, IPB, MGO #### [facility] (DEFAULT) [address] [place], [place] [id number] GLUCOSE POCon 09-11-2023 Glucose [Mass/Vol] 108 mg/dL High 70 - 99 mg/dL [facility] Interpretation and review of laboratory results Abnormal [facility] POC Sample Type CAPBL [facility] Legionella sp identified Org specific cx Nom (Unsp spec)on 09-11-2023 Bacteria identified Cx Nom (Unsp spec) NO GROWTH DAY 7 OF 7 [facility] MAGNESIUMon 09-11-2023 Interpretation and review of laboratory results Normal [facility] Magnesium [Mass/Vol] 1.6 mg/dL 1.6 - 2 .6 mg/dL [facility] Magnesium [Mass/Vol] 1.6 mg/dL Normal 1.6-2.6 [facility] Comment on above: Performed By: #### C Tray, CHM7, HFP, IPB, MGO #### [facility] (DEFAULT) [address] [place] [address] No Panel Informationon 09-11 [facility] TACROLIMUS LEVEL, TROUGH (IN E DRUG LEVEL)on 09-11-2023 Interpretation and review of laboratory results Normal [facility] Tacrolimus (Bld) [Mass/Vol] 11.5 ng/mL [facility] Tacrolimus, Trough 11.5 ng/mL Normal Bone Susana ow Transplant: 4.0-12.0, Therapeutic: 5.0-15.0 [facility] Comment on above: Order Comment: Pleas e draw at specified interval PRIOR to dose. Do not hold dose to wait for level. Specimens batched twice per day, (M-F) and once per day weekendsMethod performed is a chemiluminescent microparticle immunoasssay on the [employer] i2000.The range is based on experience at [facility] and users should be aware that target concentrations vary widely depending on concomitant therapy, time post-transplant, and desired degree of immunosuppression. Performed By: #### C NATHANIEL Feliz HFP, IPB, DOMENICA #### [facility] (DEFAULT) [address] [place] [address] CBC,PLATELETSon 09-10-2023 Erythrocyte distribution width (RBC) [Ratio] 13.9 % 10.9 - 14.3 % [facility] Hematocrit (Bld) [Volume fraction] 40.0 % 39.6 - 48.8 % [facility] Hemoglobin (Bld) [Mass/Vol] 12.7 g/dL Low 13.4 - 16.8 g/dL [facility] Interpretation and review of laboratory results Abnormal [facility] MCH (RBC) [Entitic mass] 27.3 pg 26.1 - 33.3 pg [facility] MCHC (RBC) [Mass/Vol] 31.8 g/dL Low 31.9 - 36.5 g/dL [facility] MCV (RBC) [Entitic vol] 86.0 fL 79.0 - 94.5 fL [facility] Platelet mean volume (Bld) [Entitic vol] 9.5 fL 8.7 - 12.3 fL [facility] Platelets (Bld) [#/Vol] 225 10*3/uL 146 - 337 K/uL [facility] RBC (Bld) [#/Vol] 4.65 10*6/uL [facility] WBC (Bld) [#/Vol] 6.52 10*3/uL 3.73 - 10. 10 K/uL [facility] Hematocrit (Bld) [Volume fraction] 40.0 % Normal 39.6-48.8 [facility] Comment on above: Performed By: #### C NATHANIEL Feliz, TAVO, JO ANN, MGO #### [facility] (DEFAULT) [address] [place] [address] Hemoglobin (Bld) [Mass/Vol] 12.7 g/dL Low 13.4-16.8 [facility] Comment on above: Performed By: #### C Tray, CHM7, HFP, IPB, MGO #### [facility] (DEFAULT) [address] [place] [address] [phone] MCV (RBC) [Entitic vol] 86.0 fL Normal 79.0-94.5 [facility] Comment on above: Performed By: #### Chinedu Feliz, CHM7, HFP, IPB, MGO #### [facility] (DEFAULT) [address] [place] [address]4431 Mean Cell Hgb 27.3 pg Normal 26.1-33.3 [facility] Comment on above: Performed By: #### Chinedu Feliz, CHM7, HFP, IPB, MGO #### [facility] (DEFAULT) [address] [place] [address] 90398 Mean Cell Hgb Conc 31.8 g/dL Low 31.9-36.[address] [facility] Comment on above: Performed By: #### Chinedu Feliz, CHM7, HFP, IPB, MGO #### [facility] (DEFAULT) [address] [place] [address]97 Platelet mean volume (Bld) [Entitic vol] 9.5 fL Normal 8.7-12.3 [facility] Comment on above: Performed By: #### C Tray, CHM7, HFP, IPB, MGO #### [facility] (DEFAULT) [address] [place] [address] 24400 Platelets (Bld) [#/Vol] 225 10*3/uL Normal 146-337 [facility] Comment on above: Performed By: #### C A, CHM7, HFP, IPB, MGO #### [facility] (DEFAULT) [address] [place] [address] 89394 RBC (Bld) [#/Vol] 4.65 10*6/uL Normal 4.38-5.83 [facility] Comment on above: Performed By: #### C A, CHM7, HFP, IPB, MGO #### [facility] (DEFAULT) [address] [place] [address] RBC Distribution 13.9 % Normal 10.9-14.3 [facility] Comment on above: Performed By: #### C A, CHM7, HFP, IPB, MGO #### [facility] (DEFAULT) [address] [place] [address] 36586 WBC (Bld) [#/Vol] 6.52 10*3/uL Normal 3.73-10.10 [facility] Comment on above: Performed By: #### C A, CHM7, HFP, IPB, MGO #### [facility] (DEFAULT) [address] [place] [address]30 CHEM 7 (LYTES,BUN,CREA,GLUC) on 09-10-2023 Anion gap [Moles/Vol] 13 mmol/L 7 - 17 mmol/L [facility] Chloride [Moles/Vol] 111 mmol/L High 98 - 10 8 mmol/L [facility] CO2 [Moles/Vol] 20 mmol/L Low 21 - 31 mmol/L [facility] Creatinine [Mass/Vol] 1.27 mg/dL 0.70 - 1.30 mg/dL [facility] eGFR, CKD-EPI, Male 68 - [facility]F [facility] Glucose [Mass/Vol] 100 mg/dL High 70 - 99 mg/dL [facility] Osmolality Calc [Osmolality] 293 [facility] Potassium [Moles/Vol] 4.4 mmol/L 3.5 - 5.0 mmol/L [facility] Sodium [Moles/Vol] 140 mmol/L 135 - 145 mmol/L [facility] Urea nitrogen [Mass/Vol] 12 mg/dL 7 - 25 mg/dL [facility] Urea nitrogen/Creatinine [Mass ratio] 9 mg/mg [facility] Anion gap [Moles/Vol] 13 mmol/L Normal 7-17 [facility] Comment on above: Performed By: #### C HM7, HFP, MGO #### [facility] (DEFAULT) [address] [place] [address]34 Chloride [Moles/Vol] 111 mmol/L High 98-108 [facility] Comment on above: Performed By: #### C HM7, HFP, MGO #### [facility] (DEFAULT) [address] [place] [address]405 CO2 [Moles/Vol] 20 mmol/L Low 21-31 [facility] Comment on above: Performed By: #### C HM7, HFP, MGO #### [facility] (DEFAULT) [address] [place] [address] 72492 Creatinine [Mass/Vol] 1.27 mg/dL Normal 0.70-1.30 [facility] Comment on above: Performed By: #### C HM7, HFP, MGO #### [facility] (DEFAULT) [address] [place] [address] 58721 GFR/1.73 sq M.predicted among non-blacks MDRD (S/P/Bld) [Vol rate/Area] 68 mL/min/{1.73_m2} Normal >=60 [facility] Comment on above: Result Comment: Repo rted eGFR is based on the CKD-EPI 2020 equation using creatinine, age, and sex. Performed By: #### C HM7, HFP, MGO #### [facility] (DEFAULT) [address] [place] [address]014 Glucose [Mass/Vol] 100 mg/dL High 70-[address] [facility] Comment on above: Performed By: #### C HM7, HFP, MGO #### [facility] (DEFAULT) [address] [place] [address] 16496 Osmolality [Osmolality] 293 mosm/kg Normal 278-305 [facility] Comment on above: Performed By: #### C HM7, HFP, MGO #### [facility] (DEFAULT) [address] [place] [address] Potassium [Moles/Vol] 4.4 mmol/L Normal 3.5-5.0 [facility] Comment on above: Performed By: #### C HM7, HFP, MGO #### [facility] (DEFAULT) [address] [place] [address] Sodium [Moles/Vol] 140 mmol/L Normal 135-[address] [facility] Comment on above: Performed By: #### C HM7, HFP, MGO #### [facility] (DEFAULT) [address] [place] [address]3932 Urea nitrogen [Mass/Vol] 12 mg/dL Normal 7-25 [facility] Comment on above: Performed By: #### C HM7, HFP, MGO #### [facility] (DEFAULT) [address] [place] [address] 43682 Urea nitrogen/Creatinine [Mass ratio] 9 mg/mg Normal [facility] Comment on above: Performed By: #### C HM7, HFP, MGO #### [facility] (DEFAULT) [address] [place] [address] 58032 HEPATIC FUNCTION PANELon Albumin [Mass/Vol] 3.3 g/dL Low 3.5 - 5.0 g/dL [facility] ALP [Catalytic activity/Vol] 143 U/L High 32 - 126 U/L [facility] ALT [Catalytic activity/Vol] 28 U/L 10 - 52 U/L [facility] AST [Catalytic activity/Vol] 29 U/L 10 - 39 U/L [facility] Bilirubin [Mass/Vol] 0.9 mg/dL NINF - 1.5 mg/dL [facility] Bilirubin.direct [Mass/Vol] 0.2 mg/dL NINF - 0.3 mg/dL [facility] Protein [Mass/Vol] 6.8 g/dL 6.4 - 8.3 g/dL [facility] Albumin [Mass/Vol] 3.3 g/dL Low 3.5-5.[address] [facility] Comment on above: Performed By: #### C HM7, HFP, MGO #### [facility] (DEFAULT) [address] [place] [address] 12454 ALP [Catalytic activity/Vol] 143 U/L High 32-126 [facility] Comment on above: Performed By: #### Chinedu HM7, HFP, MGO #### [facility] (DEFAULT) [address] [place] [address] 77178 ALT [Catalytic activity/Vol] 28 U/L Normal 10-52 [facility] Comment on above: Performed By: #### C HM7, HFP, MGO #### [facility] (DEFAULT) [address] [place] [address] 94493 AST [Catalytic activity/Vol] 29 U/L Normal 10-39 [facility] Comment on above: Performed By: #### C HM7, HFP, MGO #### [facility] (DEFAULT) [address] [place] [address] 82248 Bilirubin [Mass/Vol] 0.9 mg/dL Normal <1.5 [facility] Comment on above: Performed By: #### Chinedu HM7, HFP, MGO #### [facility] (DEFAULT) [address] [place] [address] 80006 Bilirubin.indirect [Mass/Vol] 0.2 mg/dL Normal <0.3 [facility] Comment on above: Performed By: #### Chinedu HM7, HFP, MGO #### [facility] (DEFAULT) [address] [place] [address] 79479 Protein [Mass/Vol] 6.8 g/dL Normal 6.4-8.[address] [facility] Comment on above: Performed By: #### C HM7, HFP, MGO #### [facility] (DEFAULT) [address] [place] [address] 16673 MAGNESIUMon 09-10-2023 Interpretation and review of laboratory results Normal [facility] Magnesium [Mass/Vol] 1.9 mg/dL 1.6 - 2 .6 mg/dL [facility] Magnesium [Mass/Vol] 1.9 mg/dL Normal 1.6-2.6 [facility] Comment on above: Performed By: #### C HM7, TAVO, MGO #### [facility] (DEFAULT) [address] [place] [address] No Panel Informationon 09-10 Interpretation and review of laboratory results Abnormal [facility] TACROLIMUS LEVEL, TROUGH (IN E DRUG LEVEL)Ordered By: Jimy Castillo on 09-10-2023 Interpretation and review of laboratory results Normal [facility] Tacrolimus (Bld) [Mass/Vol] 11.8 ng/mL [facility] TACROLIMUS LEVEL, TROUGH (IN E DRUG LEVEL)on 09-10-2023 Tacrolimus, Trough 11.8 ng/mL Normal Bone Susana ow Transplant: 4.0-12.0, Therapeutic: 5.0-15.0 [facility] Comment on above: Order Comment: Pleas e draw at specified interval PRIOR to dose. Do not hold dose to wait for level. Specimens batched twice per day, (M-F) and once per day weekendsMethod performed is a chemiluminescent microparticle immunoasssay on the [employer] i2000.The range is based on experience at [facility] and users should be aware that target concentrations vary widely depending on concomitant therapy, time post-transplant, and desired degree of immunosuppression. Performed By: #### C JASMYNE, TAVO, MGO #### [facility] (DEFAULT) [address] [place] [address] CHEM 7 (LYTES,BUN,CREA,GLUC) on 09-09-2023 Anion gap [Moles/Vol] 14 mmol/L 7 - 17 mmol/L [facility] Chloride [Moles/Vol] 113 mmol/L High 98 - 10 8 mmol/L [facility] CO2 [Moles/Vol] 18 mmol/L Low 21 - 31 mmol/L [facility] Creatinine [Mass/Vol] 1.03 mg/dL 0.70 - 1.30 mg/dL [facility] eGFR, CKD-EPI, Male 87 - PINF [facility] Glucose [Mass/Vol] 106 mg/dL High 70 - 99 mg/dL [facility] Interpretation and review of laboratory results Abnormal [facility] Osmolality Calc [Osmolality] 294 [facility] Potassium [Moles/Vol] 4.0 mmol/L 3.5 - 5.0 mmol/L [facility] Sodium [Moles/Vol] 141 mmol/L 135 - 145 mmol/L [facility] Urea nitrogen [Mass/Vol] 10 mg/dL 7 - 25 mg/dL [facility] Urea nitrogen/Creatinine [Mass ratio] 10 mg/mg [facility] MAGNESIUMon 09-09-2023 Magnesium [Mass/Vol] 1.6 mg/dL 1.6 - 2 .6 mg/dL [facility] No Panel Informationon 09-09 Interpretation and review of laboratory results Normal [facility] PHOSPHATE, INORGANICon 09-09 Phosphate [Mass/Vol] 3.8 mg/dL 2.2 - 4 .6 mg/dL [facility] TACROLIMUS LEVEL, TROUGH (IN E DRUG LEVEL)on 09-09-2023 Interpretation and review of laboratory results Normal [facility] Tacrolimus (Bld) [Mass/Vol] 9.2 ng/mL [facility] CBC,PLATELETSon 09-08-2023 Erythrocyte distribution width (RBC) [Ratio] 13.6 % 10.9 - 14.3 % [facility] Hematocrit (Bld) [Volume fraction] 36.1 % Low 39.6 - 48.8 % [facility] Hemoglobin (Bld) [Mass/Vol] 11.6 g/dL Low 13.4 - 16.8 g/dL [facility] Interpretation and review of laboratory results Abnormal [facility] MCH (RBC) [Entitic mass] 27.4 pg 26.1 - 33.3 [facility] MCHC (RBC) [Mass/Vol] 32.1 g/dL 31.9 - 36.5 g/dL [facility] MCV (RBC) [Entitic vol] 85.1 fL 79.0 - 94.5 fL [facility] Platelet mean volume (Bld) [Entitic vol] 9.5 fL 8.7 - 12.3 fL [facility] Platelets (Bld) [#/Vol] 182 10*3/uL 146 - 337 K/uL [facility] RBC (Bld) [#/Vol] 4.24 10*6/uL Low [facility] WBC (Bld) [#/Vol] 4.59 10*3/uL 3.73 - 10. 10 K/uL [facility] CHEM 7 (LYTES,BUN,CREA,GLUC) on 09-08-2023 Anion gap [Moles/Vol] 12 mmol/L 7 - 17 mmol/L [facility] Chloride [Moles/Vol] 113 mmol/L High 98 - 10 8 mmol/L [facility] CO2 [Moles/Vol] 21 mmol/L 21 - 31 mmol/L [facility] Creatinine [Mass/Vol] 1.14 mg/dL 0.70 - 1.30 mg/dL [facility] eGFR, CKD-EPI, Male 77 - PINF [facility] Glucose [Mass/Vol] 107 mg/dL High 70 - 99 mg/dL [facility] Osmolality Calc [facility]olality] [facility] Potassium [Moles/Vol] 3.9 mmol/L 3.5 - 5.0 mmol/L [facility] Sodium [Moles/Vol] 142 mmol/L 135 - 145 mmol/L [facility] Urea nitrogen [Mass/Vol] 11 mg/dL 7 - 25 mg/dL [facility] Urea nitrogen/Creatinine [Mass ratio] 10 mg/mg [facility] HEPATIC FUNCTION PANELon Albumin [Mass/Vol] 2.9 g/dL Low 3.5 - 5.0 g/dL [facility] ALP [Catalytic activity/Vol] 133 U/L High 32 - 126 U/L [facility] ALT [Catalytic activity/Vol] 23 U/L 10 - 52 U/L [facility] AST [Catalytic activity/Vol] 23 U/L 10 - 39 U/L [facility] Bilirubin [Mass/Vol] 0.8 mg/dL NINF - 1.5 mg/dL [facility] Bilirubin.direct [Mass/Vol] 0.2 mg/dL NINF - 0.3 mg/dL [facility] Protein [Mass/Vol] 5.9 g/dL Low 6.4 - 8.3 g/dL [facility] MAGNESIUMon 09-08-2023 Interpretation and review of laboratory results Normal [facility] Magnesium [Mass/Vol] 1.8 mg/dL 1.6 - 2 .6 mg/dL [facility] No Panel Informationon 09-08 Interpretation and review of laboratory results Abnormal [facility] PHOSPHATE, INORGANICon 09-08 Interpretation and review of laboratory results Normal [facility] Phosphate [Mass/Vol] 4.1 mg/dL 2.2 - 4 .6 mg/dL [facility] TACROLIMUS LEVEL, TROUGH (IN E DRUG LEVEL)on 09-08-2023 Interpretation and review of laboratory results Normal [facility] Tacrolimus (Bld) [Mass/Vol] 8.5 ng/mL [facility] CBC,PLATELETSon 09-07-2023 Erythrocyte distribution width (RBC) [Ratio] 13.5 % 10.9 - 14.3 % [facility] Hematocrit (Bld) [Volume fraction] 37.1 % Low 39.6 - 48.8 % [facility] Hemoglobin (Bld) [Mass/Vol] 11.9 g/dL Low 13.4 - 16.8 g/dL [facility] Interpretation and review of laboratory results Abnormal [facility] MCH (RBC) [Entitic mass] 27.7 pg 26.1 - 33.3 pg [facility] MCHC (RBC) [Mass/Vol] 32.1 g/dL 31.9 - 36.5 g/dL [facility] MCV (RBC) [Entitic vol] 86.5 fL 79.0 - 94.5 fL [facility] Platelet mean volume (Bld) [Entitic vol] 9.6 fL 8.7 - 12.3 fL [facility] Platelets (Bld) [#/Vol] 176 10*3/uL 146 - 337 K/uL [facility] RBC (Bld) [#/Vol] 4.29 10*6/uL Low [facility] WBC (Bld) [#/Vol] 4.10 10*3/uL 3.73 - 10. 10 K/uL [facility] CHEM 7 (LYTES,BUN,CREA,GLUC) on 09-07-2023 Anion gap [Moles/Vol] 13 mmol/L 7 - 17 mmol/L [facility] Chloride [Moles/Vol] 113 mmol/L High 98 - 10 8 mmol/L [facility] CO2 [Moles/Vol] 19 mmol/L Low 21 - 31 mmol/L [facility] Creatinine [Mass/Vol] 1.22 mg/dL 0.70 - 1.30 mg/dL [facility] eGFR, CKD-EPI, Male [address] - PINF [facility] Glucose [Mass/Vol] 107 mg/dL High 70 - 99 mg/dL [facility] Osmolality Calc [Osmolality] [facility] Potassium [Moles/Vol] 3.9 mmol/L 3.5 - 5.0 mmol/L [facility] Sodium [Moles/Vol] 141 mmol/L 135 - 145 mmol/L [facility] Urea nitrogen [Mass/Vol] 13 mg/dL 7 - 25 mg/dL [facility] Urea nitrogen/Creatinine [Mass ratio] 11 mg/mg [facility] HEPATIC FUNCTION PANELon Albumin [Mass/Vol] 2.9 g/dL Low 3.5 - 5.0 g/dL [facility] ALP [Catalytic activity/Vol] 111 U/L 32 - 126 U/L [facility] ALT [Catalytic activity/Vol] 18 U/L 10 - 52 U/L [facility] AST [Catalytic activity/Vol] 23 U/L 10 - 39 U/L [facility] Bilirubin [Mass/Vol] 0.8 mg/dL NINF - 1.5 mg/dL [facility] Bilirubin.direct [Mass/Vol] 0.3 mg/dL High NINF - 0.3 mg/dL [facility] Protein [Mass/Vol] 6.0 g/dL Low 6.4 - 8.3 g/dL [facility] MAGNESIUMon 09-07-2023 Interpretation and review of laboratory results Normal [facility] Magnesium [Mass/Vol] 1.7 mg/dL 1.6 - 2 .6 mg/dL [facility] No Panel Informationon 09-07 Interpretation and review of laboratory results Abnormal [facility] PHOSPHATE, INORGANICon 09-07 Interpretation and review of laboratory results Normal [facility] Phosphate [Mass/Vol] 4.4 mg/dL 2.2 - 4 .6 mg/dL [facility] TACROLIMUS LEVEL, TROUGH (IN E DRUG LEVEL)Ordered By: Elizabeth Maldonado on 09-07-2023 Interpretation and review of laboratory results Normal [facility] Tacrolimus (Bld) [Mass/Vol] 7.8 ng/mL [facility] CBC,PLATELETSon 09-06-2023 Erythrocyte distribution width (RBC) [Ratio] 13.4 % 10.9 - 14.3 % [facility] Hematocrit (Bld) [Volume fraction] 38.4 % Low 39.6 - 48.8 % [facility] Hemoglobin (Bld) [Mass/Vol] 11.9 g/dL Low 13.4 - 16.8 g/dL [facility] Interpretation and review of laboratory results Abnormal [facility] MCH (RBC) [Entitic mass] 26.6 pg 26.1 - 33.3 pg [facility] MCHC (RBC) [Mass/Vol] 31.0 g/dL Low 31.9 - 36.5 g/dL [facility] MCV (RBC) [Entitic vol] 85.9 fL 79.0 - 94.5 fL [facility] Platelet mean volume (Bld) [Entitic vol] 9.7 fL 8.7 - 12.3 fL [facility] Platelets (Bld) [#/Vol] 181 10*3/uL 146 - 337 K/uL [facility] RBC (Bld) [#/Vol] 4.47 10*6/uL [facility] WBC (Bld) [#/Vol] 4.41 10*3/uL 3.73 - 10. 10 K/uL [facility] CHEM 7 (LYTES,BUN,CREA,GLUC) on 09-06-2023 Anion gap [Moles/Vol] 14 mmol/L 7 - 17 mmol/L [facility] Chloride [Moles/Vol] 109 mmol/L High 98 - 10 8 mmol/L [facility] CO2 [Moles/Vol] 19 mmol/L Low 21 - 31 mmol/L [facility] Creatinine [Mass/Vol] 1.26 mg/dL 0.70 - 1.30 mg/dL [facility] eGFR, CKD-EPI, Male 69 - PINF [facility] Glucose [Mass/Vol] 114 mg/dL High 70 - 99 mg/dL [facility] Osmolality Calc [Osmolality] 291 [facility] Potassium [Moles/Vol] 4.1 mmol/L 3.5 - 5.0 mmol/L [facility] Sodium [Moles/Vol] 138 mmol/L 135 - 145 mmol/L [facility] Urea nitrogen [Mass/Vol] 16 mg/dL 7 - 25 mg/dL [facility] Urea nitrogen/Creatinine [Mass ratio] 13 mg/mg [facility] HEPATIC FUNCTION PANELon Albumin [Mass/Vol] 3.0 g/dL Low 3.5 - 5.0 g/dL [facility] ALP [Catalytic activity/Vol] 115 U/L 32 - 126 U/L [facility] ALT [Catalytic activity/Vol] 25 U/L 10 - 52 U/L [facility] AST [Catalytic activity/Vol] 31 U/L 10 - 39 U/L [facility] Bilirubin [Mass/Vol] 1.0 mg/dL NINF - 1.5 mg/dL [facility] Bilirubin.direct [Mass/Vol] 0.3 mg/dL High NINF - 0.3 mg/dL [facility] Protein [Mass/Vol] 6.3 g/dL Low 6.4 - 8.3 g/dL [facility] MAGNESIUMon 09-06-2023 Interpretation and review of laboratory results Normal [facility] Magnesium [Mass/Vol] 2.0 mg/dL 1.6 - 2 .6 mg/dL [facility] No Panel Informationon 09-06 Interpretation and review of laboratory results Abnormal [facility] TACROLIMUS LEVEL, TROUGH (IN E DRUG LEVEL)on 09-06-2023 Interpretation and review of laboratory results Normal [facility] Tacrolimus (Bld) [Mass/Vol] 6.7 ng/mL [facility] CBC,PLATELETSon 09-05-2023 Erythrocyte distribution width (RBC) [Ratio] 13.5 % 10.9 - 14.3 % [facility] Hematocrit (Bld) [Volume fraction] 35.6 % Low 39.6 - 48.8 % [facility] Hemoglobin (Bld) [Mass/Vol] 11.4 g/dL Low 13.4 - 16.8 g/dL [facility] Interpretation and review of laboratory results Abnormal [facility] MCH (RBC) [Entitic mass] 27.5 pg 26.1 - 33.3 pg [facility] MCHC (RBC) [Mass/Vol] 32.0 g/dL 31.9 - 36.5 g/dL [facility] MCV (RBC) [Entitic vol] 86.0 fL 79.0 - 94.5 fL [facility] Platelet mean volume (Bld) [Entitic vol] 10.0 fL 8.7 - 12.3 fL [facility] Platelets (Bld) [#/Vol] 170 10*3/uL 146 - 337 K/uL [facility] RBC (Bld) [#/Vol] 4.14 10*6/uL Low [facility] WBC (Bld) [#/Vol] 4.24 10*3/uL 3.73 - 10. 10 K/uL [facility] CHEM 7 (LYTES,BUN,CREA,GLUC) on 09-05-2023 Anion gap [Moles/Vol] 12 mmol/L 7 - 17 mmol/L [facility] Chloride [Moles/Vol] 107 mmol/L 98 - 10 8 mmol/L [facility] CO2 [Moles/Vol] 20 mmol/L Low 21 - 31 mmol/L [facility] Creatinine [Mass/Vol] 1.43 mg/dL High 0.70 - 1.30 mg/dL [facility] eGFR, CKD-EPI, Male 60 Low - PINF [facility] Glucose [Mass/Vol] 111 mg/dL High 70 - 99 mg/dL [facility] Osmolality Calc [Osmolality] [facility] Potassium [Moles/Vol] 4.2 mmol/L 3.5 - 5.0 mmol/L [facility] Sodium [Moles/Vol] 135 mmol/L 135 - 145 mmol/L [facility] Urea nitrogen [Mass/Vol] 18 mg/dL 7 - 25 mg/dL [facility] Urea nitrogen/Creatinine [Mass ratio] 13 mg/mg [facility] CONTINUOUS CARDIAC MONITORIN G STRIPon 09-05-2023 [facility] HEPATIC FUNCTION PANELon Albumin [Mass/Vol] 2.8 g/dL Low 3.5 - 5.0 g/dL [facility] ALP [Catalytic activity/Vol] 103 U/L 32 - 126 U/L [facility] ALT [Catalytic activity/Vol] 26 U/L 10 - 52 U/L [facility] AST [Catalytic activity/Vol] 38 U/L 10 - 39 U/L [facility] Bilirubin [Mass/Vol] 0.9 mg/dL NINF - 1.5 mg/dL [facility] Bilirubin.direct [Mass/Vol] 0.1 mg/dL NINF - 0.3 mg/dL [facility] Protein [Mass/Vol] 6.1 g/dL Low 6.4 - 8.3 g/dL [facility] HISTOPLASMA ANTIGEN, FLUIDon 09-05-2023 FH SOURCE BAL RML [facility] Histo FLD interpretation Negative [facility] Histoplasma Antigen, FLUID Not detected ng/mL [facility] HISTOPLASMA CAPSULATUM/BLAST OMYCES SPECIES,PCR FLUIDon 09-05-2023 HISTO/BLASTO RESULT Negative Not Applicable [facility] Specimen source Nom (Unsp spec) BAL RML [facility] IMMUNOPHENOTYPING, TISSUE/FL UIDon 09-05-2023 BKR DX CODE Use Ordering [facility] Flow Interpretation See Comment [facility] Flow Interpreted by: Yossi Perla MD, PhD [facility] MAGNESIUMon 09-05-2023 Interpretation and review of laboratory results Normal [facility] Magnesium [Mass/Vol] 1.7 mg/dL 1.6 - 2 .6 mg/dL [facility] No Panel Informationon 09-05 Interpretation and review of laboratory results Abnormal [facility] TACROLIMUS LEVEL, TROUGH (IN E DRUG LEVEL)Ordered By: Raymundo Mehta on 09-05-2023 Interpretation and review of laboratory results Normal [facility] Tacrolimus (Bld) [Mass/Vol] 5.3 ng/mL [facility] ARTERIAL BLOOD GAS (FULL GOSS EL)on 09-04-2023 Base excess Calc (Bld) [Moles/Vol] -1.2000 mmol/L -3.0 - 3.0 mmol/L [facility] Calcium.ionized (Bld) [Mass/Vol] 4.79 mg/dL 4.60 - 5.30 mg/dL [facility] Carboxyhemoglobin (Bld) [Mass fraction] 0.7 % NINF - 1.5 % [facility] CO2 (Bld) [Partial pressure] 30 mm[Hg] Low [facility] Glucose [Mass/Vol] 159 mg/dL High 70 - 99 mg/dL [facility] HCO3 (Bld) [Moles/Vol] 22 mmol/L 22 - 28 mmol/L [facility] Hematocrit (Bld) [Volume fraction] 38.0 % Low 40.2 - 50.4 % [facility] Hemoglobin (Bld) [Mass/Vol] 12.6 g/dL Low 13.4 - 16.8 g/dL [facility] Interpretation and review of laboratory results Abnormal [facility] Lactate [Moles/Vol] 2.0 mmol/L High 0.5 - 1. 6 mmol/L [facility] Methemoglobin (Bld) [Mass fraction] 0.0 % NINF - 1.5 % [facility] Oxygen (Bld) [Partial pressure] 62 mm[Hg] Low [facility] Oxygen saturation in Blood 92 % Low 94 - 98 % [facility] Oxyhemoglobin 91 % Low 94 - 98 % [facility] pH (Bld) 7.48 [pH] High 7.35 - 7.45 [facility] Potassium [Moles/Vol] 4.2 mmol/L 3.5 - 5.0 mmol/L [facility] Sodium [Moles/Vol] 130 mmol/L Low 135 - 145 mmol/L [facility] Specimen source Nom (Unsp spec) Arterial [facility] Bacteria identified Respirat ory culture Nom (Unsp spec)on 09-04-2023 Bacteria identified Cx Nom (Unsp spec) NO GROWTH DAY 2 OF 2 [facility] Microscopic observation Other stain Nom (Unsp spec) Cytocentrifuge preparation [facility] Microscopic observation Other stain Nom (Unsp spec) Neutrophils, Rare [facility] Microscopic observation Other stain Nom (Unsp spec) Red Blood Cells Present [facility] Microscopic observation Other stain Nom (Unsp spec) No organisms seen [facility] Bacteria identified Respirat ory culture Nom (Unsp spec)Ordered By: Jose Salgado on 09-04-2023 Bacteria identified Cx Nom (Unsp spec) NO GROWTH DAY 2 OF 2 [facility] Microscopic observation Other stain Nom (Unsp spec) Cytocentrifuge preparation [facility] Microscopic observation Other stain Nom (Unsp spec) Neutrophils, Moderate [facility] Microscopic observation Other stain Nom (Unsp spec) Red Blood Cells Present [facility] Microscopic observation Other stain Nom (Unsp spec) No organisms seen [facility] CBC,PLATELETSon 09-04-2023 Erythrocyte distribution width (RBC) [Ratio] 13.2 % 10.9 - 14.3 % [facility] Hematocrit (Bld) [Volume fraction] 38.7 % Low 39.6 - 48.8 % [facility] Hemoglobin (Bld) [Mass/Vol] 12.3 g/dL Low 13.4 - 16.8 g/dL [facility] Interpretation and review of laboratory results Abnormal [facility] MCH (RBC) [Entitic mass] 27.9 pg 26.1 - 33.3 pg [facility] MCHC (RBC) [Mass/Vol] 31.8 g/dL Low 31.9 - 36.5 g/dL [facility] MCV (RBC) [Entitic vol] 87.8 fL 79.0 - 94.5 fL [facility] Platelet mean volume (Bld) [Entitic vol] 9.8 fL 8.7 - 12.3 fL [facility] Platelets (Bld) [#/Vol] 173 10*3/uL 146 - 337 K/uL [facility] RBC (Bld) [#/Vol] 4.41 10*6/uL [facility] WBC (Bld) [#/Vol] 4.57 10*3/uL 3.73 - 10. 10 K/uL [facility] CHEM 7 (LYTES,BUN,CREA,GLUC) on 09-04-2023 Anion gap [Moles/Vol] 16 mmol/L 7 - 17 mmol/L [facility] Chloride [Moles/Vol] 104 mmol/L 98 - 10 8 mmol/L [facility] CO2 [Moles/Vol] 18 mmol/L Low 21 - 31 mmol/L [facility] Creatinine [Mass/Vol] 1.22 mg/dL 0.70 - 1.30 mg/dL [facility] eGFR, CKD-EPI, Male [address] - PIN[address] [facility] Glucose [Mass/Vol] 124 mg/dL High 70 - 99 mg/dL [facility] Osmolality Calc [Osmolality] 284 [facility] Potassium [Moles/Vol] 3.9 mmol/L 3.5 - 5.0 mmol/L [facility] Sodium [Moles/Vol] 134 mmol/L Low 135 - 145 mmol/L [facility] Urea nitrogen [Mass/Vol] 15 mg/dL 7 - 25 mg/dL [facility] Urea nitrogen/Creatinine [Mass ratio] 12 mg/mg [facility] CMV PCR,FLUIDS,URINE,EYE ETC on 09-04-2023 Specimen source Nom (Unsp spec) BAL LLL [facility] Specimen source Nom (Unsp spec) BAL RML [facility] HEPATIC FUNCTION PANELon Albumin [Mass/Vol] 3.0 g/dL Low 3.5 - 5.0 g/dL [facility] ALP [Catalytic activity/Vol] 112 U/L 32 - 126 U/L [facility] ALT [Catalytic activity/Vol] 22 U/L 10 - 52 U/L [facility] AST [Catalytic activity/Vol] 30 U/L 10 - 39 U/L [facility] Bilirubin [Mass/Vol] 1.2 mg/dL NINF - 1.5 mg/dL [facility] Bilirubin.direct [Mass/Vol] 0.4 mg/dL High NINF - 0.3 mg/dL [facility] Protein [Mass/Vol] 6.4 g/dL 6.4 - 8.3 g/dL [facility] LEGIONELLA PCRon 09-04-2023 Legionella sp rRNA Probe Ql (Unsp spec) Negative Not Applicable [facility] Specimen source Nom (Unsp spec) BAL RML [facility] Laboratory - Microbiology an d Antimicrobial susceptibilityon 09-04-2023 CMV DNA ESTELITA+probe Ql (Unsp spec) Negative Negative [facility] MAGNESIUMon 09-04-2023 Magnesium [Mass/Vol] 1.4 mg/dL Low 1.6 - 2 .6 mg/dL [facility] No Panel Informationon 09-04 Annotation comment [Interpretation] Narrative DNR [facility] PN Report Status DNR [facility] Pneumocystis jiroveci,PCR result Negative Not Applicable [facility] Interpretation and review of laboratory results Abnormal [facility] PNEUMOCYSTIS JIROVECI,PCRon 09-04-2023 Specimen source Nom (Unsp spec) BAL LLL [facility] Specimen source Nom (Unsp spec) BAL RML [facility] Portable XR Chest Viewson RADIOLOGY RADIOLOGY [facility] Radiology Study observation (narrative) [facility] Portable XR Chest ViewsOrder ed By: Joanie Nugent on 09-04-2023 [facility] Work Phone: TACROLIMUS LEVEL, TROUGH (IN E DRUG LEVEL)on 09-04-2023 Interpretation and review of laboratory results Abnormal [facility] Tacrolimus (Bld) [Mass/Vol] 3.6 ng/mL Low [facility] ASPERGILLUS ANTIGEN, BALon 1 Galactomannan Ag IA Qn (Unsp spec) [facility] Galactomannan Ag IA Qn (Unsp spec) <0.500 [facility] BAL CONSULTOrdered By: Noa Peralta on 09-03-2023 ALVEOLAR MACROPHAGES 32 % [facility] Work Phone: Bal comments Correlation with microbiology stains and cultures is recommended. [facility] Work Phone: Bal Diff Quik Stain Quality Check Acceptable [facility] Work Phone: BKR BAL INTERPRETATION Cellular specimen comprised of alveolar macrophages and small lymphocytes. No definitive microorganisms are observed. Moderate degenerative changes. [facility] Work Phone: BKR DX CODE Use Ordering [facility] Work Phone: Eosinophils Patterson stain Ql (Unsp spec) 0 % [facility] Work Phone: Lymphocytes/100 WBC (Bld) 57 % [facility] Work Phone: Neutrophils/100 WBC Manual cnt (Bronch spec) 11 % [facility] Work Phone: Pathologist review Jame (Unsp spec) [Interp] Leonardo Peralta MD [facility] Work Phone: [facility] Work Phone: BAL CONSULTon 09-03-2023 ALVEOLAR MACROPHAGES 33 % [facility] Bal comments Correlation with microbiology stains and cultures is recommended. Correlation with viral studies is recommended. [facility] Bal Diff Quik Stain Quality Check Acceptable [facility] BKR BAL INTERPRETATION Cellular specimen comprised of alveolar macrophages and small lymphocytes. No definitive microorganisms are observed. Rare degenerating cells with changes suggestive of viral cytopathic effect are noted. Moderate degenerative changes. [facility] BKR DX CODE Use Ordering [facility] Eosinophils Patterson stain Ql (Unsp spec) 0 % [facility] Lymphocytes/100 WBC (Bld) 49 % [facility] Neutrophils/100 WBC Manual cnt (Bronch spec) 18 % [facility] Pathologist review Jame (Unsp spec) [Interp] Leonardo Peralta MD [facility] BRONCHOSCOPYon 09-03-2023 LAB, [facility] CBC,PLATELETSon 09-03-2023 Erythrocyte distribution width (RBC) [Ratio] 13.4 % 10.9 - 14.3 % [facility] Hematocrit (Bld) [Volume fraction] 39.6 % 39.6 - 48.8 % [facility] Hemoglobin (Bld) [Mass/Vol] 12.8 g/dL Low 13.4 - 16.8 g/dL [facility] Interpretation and review of laboratory results Abnormal [facility] MCH (RBC) [Entitic mass] 27.8 pg 26.1 - 33.3 pg [facility] MCHC (RBC) [Mass/Vol] 32.3 g/dL 31.9 - 36.5 g/dL [facility] MCV (RBC) [Entitic vol] 85.9 fL 79.0 - 94.5 fL [facility] Platelet mean volume (Bld) [Entitic vol] 9.4 fL 8.7 - 12.3 fL [facility] Platelets (Bld) [#/Vol] 222 10*3/uL 146 - 337 K/uL [facility] RBC (Bld) [#/Vol] 4.61 10*6/uL [facility] WBC (Bld) [#/Vol] 4.36 10*3/uL 3.73 - 10. 10 K/[facility]L [facility] CHEM 7 (LYTES,BUN,CREA,GLUC) on 09-03-2023 Anion gap [Moles/Vol] 12 mmol/L 7 - 17 mmol[facility]L [facility] Chloride [Moles/Vol] 104 mmol/L 98 - 10 8 mmol/L [facility] CO2 [Moles/Vol] 24 mmol/L 21 - 31 mmol/L [facility] Creatinine [Mass/Vol] 1.20 mg/dL 0.70 - 1.30 mg/dL [facility] eGFR, CKD-EPI, Male 74 - PINF [facility] Glucose [Mass/Vol] 112 mg/dL High 70 - 99 mg/dL [facility] Osmolality Calc [Osmolality] 288 [facility] Potassium [Moles/Vol] 4.1 mmol/L 3.5 - 5.0 mmol/L [facility] Sodium [Moles/Vol] 136 mmol/L 135 - 145 mmol/L [facility] Urea nitrogen [Mass/Vol] 17 mg/dL 7 - 25 mg/dL [facility] Urea nitrogen/Creatinine [Mass ratio] 14 mg/mg [facility] CYTOLOGY, NON-GYNOrdered By: Sherice Jimenez on 09-03-2023 CYTOLOGIC DIAGNOSIS h3vplYEtBLKgcEUsYZAmB0 nyijDlWKJnoTFcP6Cprqan IKinRQ0lRL0veLigiOApjT LzLGMdQoBig0hkr881yNSz h7ovGQGEnrudwNh1e5gmST HWmD5ym9u9kD40LYVwrL8r dGJsIDtccmVkMFxncmVlbj QyYwa8TPL1eIcqIfownON6 kIGqoYJ2WMlax5WffOnwjJ gjXIY5ZFUxBdxgYKzylPT9 rZYpjKgcwGTpYE1mv9kobD U4jsZkBEZ4kAofzLC6lCgm wastx8jjhYU9vYM4GJfyvQ A9YOsvUqOoX4unLRMicJ1p H99cV5jhKMOcsYtxAGkhOL EbrOM7SJR5FEUmf1udRQFd qSEhiJMuAnPmMVtbLnk4r8 dhNVSjzM61pXGtudC6tBrk PJeyzBG9DT13WSzvz9AoRL OirJpbZSUmfJ9lWzQyRUam dmVsbmZjbjIzXGxldmVsam LpXPvrdfYvm5IykaPviAD1 UQorklLdoNH8dHvcVRToL4 K5F180WFdokxOlbhEoHbVt syw2JUEtsBmsgGxdeLkfqn VsXGxldmVsbmZjMjNcbGV2 TBnhEtMkBjMuaNX5GIsuEo PopPX3UNdjkYNdvGU1NLvq fXJ8EDi2KAe4OFggLBjpEt f9gDkwtTH5LNkqyE8pRTFe S87qHkZ6g5mftBO7dPZ7WN vwsYJ4VVjmQkZlB1wvWMOg nM4iJ76xJ2jtNVFbtUozDV fmYGVnsCA6MQN7PVSoy6tx ZXZlbHRleHRcJzAxXCdiNz y3m5crNKTaxK22sWNfdoA9 aMhfAC12SZrcj5IkWDGuzA xkSYGfoN0uThGfMVrkhuHr bmZjbjIzXGxldmVsamMwXG rnhmHph2WvipFoiHZ6JPwp nfVflPY5zDjbUYPjV3V2R3 08XTjuveDyafQtRrRaghk4 XGYxfXtcbGlzdGxldmVsXG nsegKobuCjRxIckNV7LPjk PmWbSlNfkQO5DHjhGjFdoT G8UIxlrHPuxFS4ONarvJE2 SXs5YGu5LIsiMVaxDlq9kI cmvFJ4ZHwxkI0eGWKmL48w QwL7k5cdzPL5pNV0IBogaG B5VPtaUgPlP3qqNZRdpN0e C13xG8enQVCoaZlnPQjmJV YudMU4MJZ0OGXoz0ppGXJo uEVclZXdHcTiMQlgBui6v2 npKXDpwQ40hPGfibJ4zRlj AE88KLghc5BmZWCjuIuhXQ OveP5bEtGcOTlkgnLrrwMm bjIzXGxldmVsamMwXGxldm Ftu2JuquCvkOO6YWlaraMe nKC1nTnhTAXmY8D2O413AN sqptHdxjGyGaCnkqe1QOZy fXtcbGlzdGxldmVsXGxldm TeksVtTdYccYF4SSqpJbJl IbLlePZ1FKxzGvPbaVJ9BO qtlLNnhXX4UTvpuLD1FTj3 JVm6YNwuBOeaEyq9wZyngG T6DHhknX3nUZWkP88pIlE6 mT77WEeqiOgqyF93AFCgwA IcyTYnmBF8YYgcvHajmQ71 UUKnnVUeIRmdt6OjXCGbGo P6YUF1OQWxjKrdjV06DDZw cSUeP308ldFvLSpyXV16ZE BhcGVydzEyMjQwXHBhcGVy hSC7URKoUD7jgsyfCDauNB ifYTKdvdX4KXTmeUOhW9Jv NEXhAE5edvsgIOL5YQvnVY WrIMD0GiQhSRGwy7Jloxi1 RvVtzPt3g3miQUZmNLAstT blw1hbYRR1QMXwnWKwD4al nZ9bBBOyVU4qzvutg6hxCX maUCyjPNMyhXV1dhQ7SXTv uUVhN5MhpR7zRSAbWJJurb HxjVgawT8lIuitvjJaERTm TFNANxDJAs8ZD8mPKJzHLR 9MQVIgTEFWQUdFLCBMRUZU JKvCL7JUFMsZRdMbELDyVK FdM0hRC7wUA0vyLntsIyNt NQvtJRByZbGtV9QpENDdul dmCWJhGNAHLV9YIHPZYFFG Iz8JCZP0DVWuxbqcdOZ5JH lxxhLpbKr9wHAhbWmxsA9g YlxmczIyXGNmMSBObyBNYW euO05hljVfG9OvaVFsYUTp KJxvAU38hFElGBGpyFOmBD a5oQ6bYUwzrDbrqwWPaFFs qR0ixbycGMfrJvXmeTEnXS xpMFxsczBccGFyfQ== [facility] Work Phone: Case Report [facility] Work Phone: Clinical History b4ikzCEgVPLlaNJcIAVz M1 hrwgHfITGiuBVaI5Ryqdjh IOvlYX1zCR2gxAhhzHBjiD WtGKQyRrWie9pck037yXYf a1ikRFPXtcncyPl4wYtqC0 2if2R5NvivQ2nhNZPbSKha HGYiIRwujTOsIUk2IGCscU VydzEyMjQwXHBhcGVyaDE1 IWQuIY7uykpkLPocXUloLR IuqmG7ZTTpeURvB2FdZERq SQ7gptccSOX9LZmyOLSbSM V6LpEyGKZat3Fqdzb4HuZz qUx1m7lwCEUrRANuvNgta0 leYCK6JQGjgLMlW3isaZ5l CWUwEC5ftytdy4knNYipTD klMDQgyVZ3vpL7KISwsCAt Z8AmpM8fBMTcFUCgzsDwjD rosB8bIbQeOWolQgSqEmJj LFbajWJwbaPpoYQeeI5lYG Bhcn0= [facility] Work Phone: For Immediate Release to Patient's MyChart? Yes Yes [facility] Work Phone: Gross Description d5unjFElIUTicPTcPTUa M1 fjjjTyPDHazRRhB9Asfzww IWniIR9aYP5diNihtSWmcF AmPTMaSjDlt8khc474fSBl l4edSAHIwswnjIl2aDnvE8 5dn6N4VevqR78ejEUiRCK8 UGOsEVFfpFRpJGRwCPK1SY JnjGXqK2iaOOOxTJ8rabne GWwlPFnhWHXrdFB3HZNazD ImU1BnNUKbYGdmQKAvplq9 ZhSyPq3qpVGreVxkRAekAK JkXHBsYWluXGZzMjAgTExM IEJBTFxwYXIgMSBtbCBoYX b7KODzdE1csLUhqaMkdATu aZ8qqCsgBIvqQHCoTCDZOS HqkUtbPSCJQWHbl1MtwV5t cGFyXHBhcmRccGFyXHBhcn 0= [facility] Work Phone: [facility] Work Phone: HEPATIC FUNCTION PANELon Albumin [Mass/Vol] 3.2 g/dL Low 3.5 - 5.0 g/dL [facility] ALP [Catalytic activity/Vol] 118 U/L 32 - 126 U/L [facility] ALT [Catalytic activity/Vol] 25 U/L 10 - 52 U/L [facility] AST [Catalytic activity/Vol] 32 U/L 10 - 39 U/L [facility] Bilirubin [Mass/Vol] 1.0 mg/dL NINF - 1.5 mg/dL [facility] Bilirubin.direct [Mass/Vol] 0.3 mg/dL High NINF - 0.3 mg/dL [facility] Protein [Mass/Vol] 6.5 g/dL 6.4 - 8.3 g/dL [facility] HISTOPLASMA AND BLASTOMYCES ANTIGEN, ENZYME IMMUNOASSAY, SERMon 09-03-2023 Histoplasma/Blastomyce s Ag Result Detected Critically abnormal Not Detected [facility] Histoplasma/Blastomyce s Ag Value 5.3 ng/mL [facility] Interpretation and review of laboratory results Abnormal [facility] MAGNESIUMon 09-03-2023 Interpretation and review of laboratory results Normal [facility] Magnesium [Mass/Vol] 1.6 mg/dL 1.6 - 2 .6 mg/dL [facility] No Panel Informationon 09-03 Interpretation and review of laboratory results Abnormal [facility] PARVOVIRUS (B19) DNA, PCR, [place] Burden 09-03-2023 PARVOVIRUS B19 BY RAPID PCR Not detected Not Detected [facility] IN SPEC SOURCE Whole Blood [facility] Portable XR Chest Viewson RADIOLOGY RADIOLOGY [facility] Radiology Study observation (narrative) [facility] Portable XR Chest ViewsOrder ed By: Lester Grove on 09-03-2023 [facility] Work Phone: ASPERGILLUS (GALACTOMANNAN), ANTIGENon 09-02-2023 Galactomannan Ag IA Qn <0.500 NINF [facility] ATYPICAL BACTERIAL PNEUMONIA ,PCROrdered By: Shari Contreras on 09-02-2023 B. parapertussis DNA ESTELITA+probe Ql (Unsp spec) Not detected Not Detected [facility] B. pertussis DNA ESTELITA+probe Ql (Unsp spec) Not detected Not Detected [facility] C. pneumoniae DNA ESTELITA+probe Ql (Unsp spec) Not detected Not Detected [facility] Interpretation and review of laboratory results Normal [facility] M. pneumoniae DNA ESTELITA+probe Ql (Unsp spec) Not detected Not Detected [facility] BRONCHOSCOPYon 09-02-2023 Radiology Study observation (narrative) [facility] Bacteria identified Cx Nom ( Bld)on 09-02-2023 Bacteria identified Cx Nom (Unsp spec) NO GROWTH DAY 5 OF 5 [facility] CBC,PLATELETSon 09-02-2023 Erythrocyte distribution width (RBC) [Ratio] 13.2 % 10.9 - 14.3 % [facility] Hematocrit (Bld) [Volume fraction] 39.9 % 39.6 - 48.8 % [facility] Hemoglobin (Bld) [Mass/Vol] 12.9 g/dL Low 13.4 - 16.8 g/dL [facility] Interpretation and review of laboratory results Abnormal [facility] MCH (RBC) [Entitic mass] 27.9 pg 26.1 - 33.3 pg [facility] MCHC (RBC) [Mass/Vol] 32.3 g/dL 31.9 - 36.5 g/dL [facility] MCV (RBC) [Entitic vol] 86.4 fL 79.0 - 94.5 fL [facility] Platelet mean volume (Bld) [Entitic vol] 9.5 fL 8.7 - 12.3 fL [facility] Platelets (Bld) [#/Vol] 210 10*3/uL 146 - 337 K/uL [facility] RBC (Bld) [#/Vol] 4.62 10*6/uL [facility] WBC (Bld) [#/Vol] 4.12 10*3/uL 3.73 - 10. 10 K/uL [facility] CHEM 7 (LYTES,BUN,CREA,GLUC) on 09-02-2023 Anion gap [Moles/Vol] 13 mmol/L 7 - 17 mmol/L [facility] Chloride [Moles/Vol] 105 mmol/L 98 - 10 8 mmol/L [facility] CO2 [Moles/Vol] 22 mmol/L 21 - 31 mmol/L [facility] Creatinine [Mass/Vol] 1.25 mg/dL 0.70 - 1.30 mg/dL [facility] eGFR, CKD-EPI, Male 70 - [address] [facility] Glucose [Mass/Vol] 105 mg/dL High 70 - 99 mg/dL [facility] Osmolality Calc [Osmolality] 287 [facility] Potassium [Moles/Vol] 4.3 mmol/L 3.5 - 5.0 mmol/L [facility] Sodium [Moles/Vol] 136 mmol/L 135 - 145 mmol/L [facility] Urea nitrogen [Mass/Vol] 16 mg/dL 7 - 25 mg/dL [facility] Urea nitrogen/Creatinine [Mass ratio] 13 mg/mg [facility] HEPATIC FUNCTION PANELon Albumin [Mass/Vol] 3.2 g/dL Low 3.5 - 5.0 g/dL [facility] ALP [Catalytic activity/Vol] 107 U/L 32 - 126 U/L [facility] ALT [Catalytic activity/Vol] 20 U/L 10 - 52 U/L [facility] AST [Catalytic activity/Vol] 31 U/L 10 - 39 U/L [facility] Bilirubin [Mass/Vol] 1.0 mg/dL NINF - 1.5 mg/dL [facility] Bilirubin.direct [Mass/Vol] 0.3 mg/dL High NINF - 0.3 mg/dL [facility] Protein [Mass/Vol] 6.6 g/dL 6.4 - 8.3 g/dL [facility] HISTOPLASMA ANTIGEN,URINEon 09-02-2023 H. capsulatum Ag (U) [Mass/Vol] Not detected ng/mL [facility] H. capsulatum Ag IA Ql (U) Not detected Not Detected [facility] HIV 1 AND 2 ANTIBODIES/P24 A NTIGENOrdered By: Wilma Luque on 09-02-2023 HIV 1+2 Ab+HIV1 p24 Ag IA Ql Non-Reactive Non Reactive [facility] Interpretation and review of laboratory results Normal [facility] MAGNESIUMon 09-02-2023 Interpretation and review of laboratory results Normal [facility] Magnesium [Mass/Vol] 1.7 mg/dL 1.6 - 2 .6 mg/dL [facility] No Panel Informationon 09-02 Interpretation and review of laboratory results Abnormal [facility] TACROLIMUS LEVEL, TROUGH (IN E DRUG LEVEL)on 09-02-2023 Interpretation and review of laboratory results Normal [facility] Tacrolimus (Bld) [Mass/Vol] 4.2 ng/mL [facility] CBC,PLATELETSon 09-01-2023 Erythrocyte distribution width (RBC) [Ratio] 13.4 % 10.9 - 14.3 % [facility] Hematocrit (Bld) [Volume fraction] 38.9 % Low 39.6 - 48.8 % [facility] Hemoglobin (Bld) [Mass/Vol] 12.7 g/dL Low 13.4 - 16.8 g/dL [facility] Interpretation and review of laboratory results Abnormal [facility] MCH (RBC) [Entitic mass] 27.6 pg 26.1 - 33.3 pg [facility] MCHC (RBC) [Mass/Vol] 32.6 g/dL 31.9 - 36.5 g/dL [facility] MCV (RBC) [Entitic vol] 84.6 fL 79.0 - 94.5 fL [facility] Platelet mean volume (Bld) [Entitic vol] 9.4 fL 8.7 - 12.3 fL [facility] Platelets (Bld) [#/Vol] 209 10*3/uL 146 - 337 K/uL [facility] RBC (Bld) [#/Vol] 4.60 10*6/uL [facility] WBC (Bld) [#/Vol] 4.41 10*3/uL 3.73 - 10. 10 K/uL [facility] CHEM 7 (LYTES,BUN,CREA,GLUC) on 09-01-2023 Anion gap [Moles/Vol] 14 mmol/L 7 - 17 mmol/L [facility] Chloride [Moles/Vol] 103 mmol/L 98 - 10 8 mmol/L [facility] CO2 [Moles/Vol] 21 mmol/L 21 - 31 mmol/L [facility] Creatinine [Mass/Vol] 1.16 mg/dL 0.70 - 1.30 mg/dL [facility] eGFR, CKD-EPI, Male 77 - PINF [facility] Glucose [Mass/Vol] 117 mg/dL High 70 - 99 mg/dL [facility] Osmolality Calc [Osmolality] 285 [facility] Potassium [Moles/Vol] 4.2 mmol/L 3.5 - 5.0 mmol/L [facility] Sodium [Moles/Vol] 134 mmol/L Low 135 - 145 mmol/L [facility] Urea nitrogen [Mass/Vol] 18 mg/dL 7 - 25 mg/dL [facility] Urea nitrogen/Creatinine [Mass ratio] 16 mg/mg [facility] CRYPTOCOCCAL ANTIGENon 09-01 Cryptococcus sp Ag Ql (S) Negative Negative [facility] Interpretation and review of laboratory results Normal [facility] HEPATIC FUNCTION PANELon Albumin [Mass/Vol] 3.3 g/dL Low 3.5 - 5.0 g/dL [facility] ALP [Catalytic activity/Vol] 112 U/L 32 - 126 U/L [facility] ALT [Catalytic activity/Vol] 21 U/L 10 - 52 U/L [facility] AST [Catalytic activity/Vol] 29 U/L 10 - 39 U/L [facility] Bilirubin [Mass/Vol] 1.0 mg/dL NINF - 1.5 mg/dL [facility] Bilirubin.direct [Mass/Vol] 0.2 mg/dL NINF - 0.3 mg/dL [facility] Protein [Mass/Vol] 6.8 g/dL 6.4 - 8.3 g/dL [facility] L. pneumophila 1 Ag IA Ql (U )Ordered By: Carolin Miles on 09-01-2023 Interpretation and review of laboratory results Normal [facility] LEGIONELLA URINARY AGOrdered By: Carolin Miles on 09-01-2023 L. pneumophila 1 Ag IA Ql (U) Negative Negative [facility] MAGNESIUMon 09-01-2023 Interpretation and review of laboratory results Normal [facility] Magnesium [Mass/Vol] 1.6 mg/dL 1.6 - 2 .6 mg/dL [facility] No Panel Informationon 09-01 Interpretation and review of laboratory results Abnormal [facility] CBC,PLATELETSon 08-31-2023 Erythrocyte distribution width (RBC) [Ratio] 13.3 % 10.9 - 14.3 % [facility] Hematocrit (Bld) [Volume fraction] 39.4 % Low 39.6 - 48.8 % [facility] Hemoglobin (Bld) [Mass/Vol] 12.8 g/dL Low 13.4 - 16.8 g/dL [facility] Interpretation and review of laboratory results Abnormal [facility] MCH (RBC) [Entitic mass] 27.6 pg 26.1 - 33.3 pg [facility] MCHC (RBC) [Mass/Vol] 32.5 g/dL 31.9 - 36.5 g/dL [facility] MCV (RBC) [Entitic vol] 85.1 fL 79.0 - 94.5 fL [facility] Platelet mean volume (Bld) [Entitic vol] 9.6 fL 8.7 - 12.3 fL [facility] Platelets (Bld) [#/Vol] 228 10*3/uL 146 - 337 K/uL [facility] RBC (Bld) [#/Vol] 4.63 10*6/[facility]L [facility] WBC (Bld) [#/Vol] 4.77 10*3/uL 3.73 - 10. 10 K/uL [facility] CHEM 7 (LYTES,BUN,CREA,GLUC) on 08-31-2023 Anion gap [Moles/Vol] 13 mmol/L 7 - 17 mmol/L [facility] Chloride [Moles/Vol] 102 mmol/L 98 - 10 8 mmol/L [facility] CO2 [Moles/Vol] 23 mmol/L 21 - 31 mmol/L [facility] Creatinine [Mass/Vol] 1.37 mg/dL High 0.70 - 1.30 mg/dL [facility] eGFR, CKD-EPI, Male 63 - PINF [facility] Glucose [Mass/Vol] 112 mg/dL High 70 - 99 mg/dL [facility] Osmolality Calc [Osmolality] 284 [facility] Potassium [Moles/Vol] 4.4 mmol/L 3.5 - 5.0 mmol/L [facility] Sodium [Moles/Vol] 134 mmol/L Low 135 - 145 mmol/L [facility] Urea nitrogen [Mass/Vol] 16 mg/dL 7 - 25 mg/dL [facility] Urea nitrogen/Creatinine [Mass ratio] 12 mg/mg [facility] Ab[facility]en [facility]vis WO con traston 08-31-2023 RADIOLOGY RADIOLOGY [facility] Radiology Study observation (narrative) [facility] CT Abdomen and Pelvis WO con trastOrdered By: Chavez Larkin on 08-31-2023 [facility] Work Phone: CT Chest WO contraston 08-31 RADIOLOGY RADIOLOGY [facility] Radiology Study observation (narrative) [facility] CT Chest WO contrastOrdered By: Daisha Patterson on 08-31-2023 [facility] Work Phone: FERRITINon 08-31-2023 Ferritin [Mass/Vol] 409.0 ng/mL High 10.5 - 3 07.3 ng/mL [facility] Interpretation and review of laboratory results Abnormal [facility] HEPATIC FUNCTION PANELon Albumin [Mass/Vol] 3.3 g/dL Low 3.5 - 5.0 g/dL [facility] ALP [Catalytic activity/Vol] 113 U/L 32 - 126 U/L [facility] ALT [Catalytic activity/Vol] 25 U/L 10 - 52 U/L [facility] AST [Catalytic activity/Vol] 31 U/L 10 - 39 U/L [facility] Bilirubin [Mass/Vol] 1.1 mg/dL NINF - 1.5 mg/dL [facility] Bilirubin.direct [Mass/Vol] 0.3 mg/dL High NINF - 0.3 mg/dL [facility] Protein [Mass/Vol] 7.0 g/dL 6.4 - 8.3 g/dL [facility] MAGNESIUMon 08-31-2023 Interpretation and review of laboratory results Normal [facility] Magnesium [Mass/Vol] 1.7 mg/dL 1.6 - 2 .6 mg/dL [facility] No Panel Informationon 08-31 Interpretation and review of laboratory results Abnormal [facility] PROCALCITONINon 08-31-2023 Interpretation and review of laboratory results Normal [facility] Procalcitonin [Mass/Vol] 0.23 ng/mL NINF - 0.50 ng/mL [facility] TACROLIMUS LEVEL, TROUGH (IN E DRUG LEVEL)Ordered By: Yanira Marcum on 08-31-2023 Interpretation and review of laboratory results Normal [facility] Tacrolimus (Bld) [Mass/Vol] 5.9 ng/mL [facility] URINE CULTUREOrdered By: Jorge Lozano on 08-31-2023 Bacteria identified Cx Nom (Unsp spec) No Growth [facility] DARYL AURIS SCREEN BY PCRO rdered By: Mynor Alejandro on 08-30-2023 Daryl auris Screen by PCR Not detected Not Detected [facility] Interpretation and review of laboratory results Normal [facility] CBC,PLATELETSon 08-30-2023 Erythrocyte distribution width (RBC) [Ratio] 13.3 % 10.9 - 14.3 % [facility] Hematocrit (Bld) [Volume fraction] 41.3 % 39.6 - 48.8 % [facility] Hemoglobin (Bld) [Mass/Vol] 13.2 g/dL Low 13.4 - 16.8 g/dL [facility] Interpretation and review of laboratory results Abnormal [facility] MCH (RBC) [Entitic mass] 27.3 pg 26.1 - 33.3 pg [facility] MCHC (RBC) [Mass/Vol] 32.0 g/dL 31.9 - 36.5 g/dL [facility] MCV (RBC) [Entitic vol] 85.5 fL 79.0 - 94.5 fL [facility] Platelet mean volume (Bld) [Entitic vol] 9.2 fL 8.7 - 12.3 fL [facility] Platelets (Bld) [#/Vol] 235 10*3/uL 146 - 337 K/uL [facility] RBC (Bld) [#/Vol] 4.83 10*6/uL [facility] WBC (Bld) [#/Vol] 4.96 10*3/uL 3.73 - 10. 10 K/uL [facility] CHEM 7 (LYTES,BUN,CREA,GLUC) on 08-30-2023 Anion gap [Moles/Vol] 14 mmol/L 7 - 17 mmol/L [facility] Chloride [Moles/Vol] 102 mmol/L 98 - 10 8 mmol/L [facility] CO2 [Moles/Vol] 20 mmol/L Low 21 - 31 mmol/L [facility] Creatinine [Mass/Vol] 1.56 mg/dL High 0.70 - 1.30 mg/dL [facility] eGFR, CKD-EPI, Male 54 Low - [facility]F [facility] Glucose [Mass/Vol] 123 mg/dL High 70 - 99 mg/dL [facility] Osmolality Calc [Osmolality] 281 [facility] Potassium [Moles/Vol] 4.3 mmol/L 3.5 - 5.0 mmol/L [facility] Sodium [Moles/Vol] 132 mmol/L Low 135 - 145 mmol/L [facility] Urea nitrogen [Mass/Vol] 16 mg/dL 7 - 25 mg/dL [facility] Urea nitrogen/Creatinine [Mass ratio] 10 mg/mg [facility] EXTRA MICROon 08-30-2023 [facility] HEPATIC FUNCTION PANELon Albumin [Mass/Vol] 3.7 g/dL 3.5 - 5.0 g/dL [facility] ALP [Catalytic activity/Vol] 115 U/L 32 - 126 U/L [facility] ALT [Catalytic activity/Vol] 22 U/L 10 - 52 U/L [facility] AST [Catalytic activity/Vol] 34 U/L 10 - 39 U/L [facility] Bilirubin [Mass/Vol] 1.2 mg/dL NINF - 1.5 mg/dL [facility] Bilirubin.direct [Mass/Vol] 0.3 mg/dL High NINF - 0.3 mg/dL [facility] Protein [Mass/Vol] 7.7 g/dL 6.4 - 8.3 g/dL [facility] MAGNESIUMon 08-30-2023 Interpretation and review of laboratory results Normal [facility] Magnesium [Mass/Vol] 1.8 mg/dL 1.6 - 2 .6 mg/dL [facility] No Panel Informationon 08-30 Interpretation and review of laboratory results Abnormal [facility] CBC,PLATELETSon 08-29-2023 Erythrocyte distribution width (RBC) [Ratio] 13.4 % 10.9 - 14.3 % [facility] Hematocrit (Bld) [Volume fraction] 37.6 % Low 39.6 - 48.8 % [facility] Hemoglobin (Bld) [Mass/Vol] 12.2 g/dL Low 13.4 - 16.8 g/dL [facility] Interpretation and review of laboratory results Abnormal [facility] MCH (RBC) [Entitic mass] 27.6 pg 26.1 - 33.3 pg [facility] MCHC (RBC) [Mass/Vol] 32.4 g/dL 31.9 - 36.5 g/dL [facility] MCV (RBC) [Entitic vol] 85.1 fL 79.0 - 94.5 fL [facility] Platelet mean volume (Bld) [Entitic vol] 9.4 fL 8.7 - 12.3 fL [facility] Platelets (Bld) [#/Vol] 233 10*3/uL 146 - 337 K/uL [facility] RBC (Bld) [#/Vol] 4.42 10*6/uL [facility] WBC (Bld) [#/Vol] 4.92 10*3/uL 3.73 - 10. 10 K/uL [facility] CHEM 7 (LYTES,BUN,CREA,GLUC) on 08-29-2023 Anion gap [Moles/Vol] 13 mmol/L 7 - 17 mmol/L [facility] Chloride [Moles/Vol] 105 mmol/L 98 - 10 8 mmol/L [facility] CO2 [Moles/Vol] 20 mmol/L Low 21 - 31 mmol/L [facility] Creatinine [Mass/Vol] 1.55 mg/dL High 0.70 - 1.30 mg/dL [facility] eGFR, CKD-EPI, Male 54 Low - PINF [facility] Glucose [Mass/Vol] 108 mg/dL High 70 - 99 mg/dL [facility] Osmolality Calc [Osmolality] 283 [facility] Potassium [Moles/Vol] 4.5 mmol/L 3.5 - 5.0 mmol/L [facility] Sodium [Moles/Vol] 133 mmol/L Low 135 - 145 mmol/L [facility] Urea nitrogen [Mass/Vol] 19 mg/dL 7 - 25 mg/dL [facility] Urea nitrogen/Creatinine [Mass ratio] 12 mg/mg [facility] GGTon 08-29-2023 Gamma glutamyl transferase [Catalytic activity/Vol] 64 U/L 8 - 64 U/L [facility] Interpretation and review of laboratory results Normal [facility] HEPATIC FUNCTION PANELon Albumin [Mass/Vol] 3.3 g/dL Low 3.5 - 5.0 g/dL [facility] ALP [Catalytic activity/Vol] 103 U/L 32 - 126 U/L [facility] ALT [Catalytic activity/Vol] 18 U/L 10 - 52 U/L [facility] AST [Catalytic activity/Vol] 27 U/L 10 - 39 U/L [facility] Bilirubin [Mass/Vol] 1.1 mg/dL NINF - 1.5 mg/dL [facility] Bilirubin.direct [Mass/Vol] 0.3 mg/dL High NINF - 0.3 mg/dL [facility] Protein [Mass/Vol] 6.8 g/dL 6.4 - 8.3 g/dL [facility] MAGNESIUMon 08-29-2023 Interpretation and review of laboratory results Normal [facility] Magnesium [Mass/Vol] 1.7 mg/dL 1.6 - 2 .6 mg/dL [facility] No Panel Informationon 08-29 Interpretation and review of laboratory results Abnormal [facility] PT,INR,PTTon 08-29-2023 aPTT Coag (PPP) [Time] 29.3 s [facility] INR Coag (Bld) [Relative time] 1.1 {INR} 0.9 - 1.1 [facility] Interpretation and review of laboratory results Normal [facility] PT Coag (PPP) [Time] 13.8 s [facility] RADIOLOGY RADIOLOGY [facility] Portable XR Chest ViewsOrder ed By: Gerald Baer on 08-29-2023 [facility] Work Phone: TACROLIMUS LEVEL, TROUGH (IN E DRUG LEVEL)on 08-29-2023 Interpretation and review of laboratory results [facility] Tacrolimus (Bld) [Mass/Vol] 8.9 ng/mL [facility] TACROLIMUS LEVEL, TROUGH (IN E DRUG LEVEL)Ordered By: Roxanne Louie on 08-29-2023 Interpretation and review of laboratory results Normal [facility] Tacrolimus (Bld) [Mass/Vol] 8.7 ng/mL [facility] URINALYSIS REFLEX TO CULTURE PERFORMABLEOrdered By: Shaji Kelly on 08-29-2023 Appearance (U) Clear Clear [facility] Bacteria LM Ql (Urine sed) ABSENT ABSENT [facility] Calcium Oxalate Crystals PRESENT [facility] Color (U) Yellow Yellow [facility] Epithelial cells.squamous LM Ql (Urine sed) 0-2/hpf 0-2/hpf, 3-5/hpf = 1+ [facility] Glucose Test strip (U) [Mass/Vol] Negative Negative [facility] Interpretation and review of laboratory results Abnormal [facility] Ketones (U) [Mass/Vol] Negative Negative [facility] Leukocyte esterase Test strip Ql (U) Negative Negative [facility] Nitrite Ql (U) Negative Negative [facility] pH (U) 6.0 [pH] 5.0 - 7.0 [facility] Protein (U) [Mass/Vol] Negative Negative [facility] RBC (U) [#/Vol] Trace Abnormal Negative U [facility] RBC LM.HPF (Urine sed) [#/Area] 3-5 Abnormal [facility] Specific gravity (U) [Rel density] 1.015 1.001 - 1.035 [facility] Urobilinogen (U) [Mass/Vol] 1.0 E.U./dL 0.2 E.U/dL, 1.0 E.U/dL [facility] WBC LM.HPF (Urine sed) [#/Area] 0 - 5 [facility] US for transplanted kidney l imitedon 08-29-2023 RADIOLOGY RADIOLOGY [facility] Radiology Study observation (narrative) [facility] US for transplanted kidney l imitedOrdered By: Romana Matias on 08-29-2023 [facility] Work Phone: CBC AND ELECTRONIC DIFFon Basophils (Bld) [#/Vol] K/uL 0.00 - 0.09 K/uL [facility] Basophils/100 WBC (Bld) 0.6 % [facility] Differential cell count method Nom (Bld) Electronic Differential [facility] Eosinophils (Bld) [#/Vol] 0.10 10*3/uL 0.00 - 0.48 K/uL [facility] Eosinophils/100 WBC (Bld) 2.1 % [facility] Erythrocyte distribution width (RBC) [Ratio] 13.4 % 10.9 - 14.3 % [facility] Hematocrit (Bld) [Volume fraction] 37.9 % Low 39.6 - 48.8 % [facility] Hemoglobin (Bld) [Mass/Vol] 12.4 g/dL Low 13.4 - 16.8 g/dL [facility] Immature granulocytes (Bld) [#/Vol] K/uL NINF - 0.07 K/uL [facility] Immature granulocytes/100 WBC (Bld) 0.6 % [facility] Interpretation and review of laboratory results Abnormal [facility] Lymphocytes (Bld) [#/Vol] 1.76 10*3/uL 0.83 - 3.57 K/uL [facility] Lymphocytes/100 WBC (Bld) 37.1 % [facility] MCH (RBC) [Entitic mass] 27.8 pg 26.1 - 33.3 pg [facility] MCHC (RBC) [Mass/Vol] 32.7 g/dL 31.9 - 36.5 g/dL [facility] MCV (RBC) [Entitic vol] 85.0 fL 79.0 - 94.5 fL [facility] Monocytes (Bld) [#/Vol] 0.66 10*3/uL 0.24 - 0.93 K/uL [facility] Monocytes/100 WBC (Bld) 13.9 % [facility] Neutrophils (Bld) [#/Vol] 2.16 10*3/uL 1.57 - 6.19 K/uL [facility] Nucleated RBC/100 WBC (Bld) [Ratio] 0.0 % [facility] Platelet mean volume (Bld) [Entitic vol] 9.3 fL 8.7 - 12.3 fL [facility] Platelets (Bld) [#/Vol] 262 10*3/uL 146 - 337 K/uL [facility] RBC (Bld) [#/Vol] 4.46 10*6/uL [facility] Segmented neutrophils/100 WBC (Bld) 45.7 % [facility] WBC (Bld) [#/Vol] 4.74 10*3/uL 3.73 - 10. 10 K/uL [facility] CHEM 6 (LYTES, BUN CREA)on 0 08-28-2023 Anion gap [Moles/Vol] 13 mmol/L 7 - 17 mmol/L [facility] Chloride [Moles/Vol] 103 mmol/L 98 - 10 8 mmol/L [facility] CO2 [Moles/Vol] 22 mmol/L 21 - 31 mmol/L [facility] Creatinine [Mass/Vol] 1.62 mg/dL High 0.70 - 1.30 mg/dL [facility] eGFR, CKD-EPI, Male 52 Low - PINF [facility] Interpretation and review of laboratory results Abnormal [facility] Potassium [Moles/Vol] 4.3 mmol/L 3.5 - 5.0 mmol/L [facility] Sodium [Moles/Vol] 134 mmol/L Low 135 - 145 mmol/L [facility] Urea nitrogen [Mass/Vol] 22 mg/dL 7 - 25 mg/dL [facility] Urea nitrogen/Creatinine [Mass ratio] 14 mg/mg [facility] Portable XR Chest Viewson Radiology Study observation (narrative) [facility] Respiratory virus DNA+RNA NA A+probe Nom (Unsp spec)Ordered By: Dayami Harris on 08-28-2023 Adenovirus DNA ESTELITA+probe Nom (Unsp spec) Not detected Not Detected [facility] B. parapertussis DNA ESTELITA+probe Ql (Unsp spec) Not detected Not Detected [facility] B. pertussis DNA ESTELITA+probe Ql (Unsp spec) Not detected Not Detected [facility] C. pneumoniae DNA ESTELITA+probe Ql (Unsp spec) Not detected Not Detected [facility] FLUAV RNA ESTELITA+probe Ql (Unsp spec) Not detected Not Detected [facility] FLUBV RNA ESTELITA+probe Ql (Unsp spec) Not detected Not Detected [facility] HCoV 229E RNA ESTELITA+non-probe Ql (Nph) Not detected Not Detected [facility] HCoV HKU1 RNA ESTELITA+non-probe Ql (Nph) Not detected Not Detected [facility] HCoV NL63 RNA ESTELITA+non-probe Ql (Nph) Not detected Not Detected [facility] HCoV OC43 RNA ESTELITA+non-probe Ql (Nph) Not detected Not Detected [facility] hMPV A RNA ESTELITA+probe Ql (Unsp spec) Not detected Not [facility]ed [facility] Interpretation and review of laboratory results Normal [facility] M. pneumoniae DNA ESTELITA+probe Ql (Unsp spec) Not detected Not Detected [facility] Parainfluenza virus 1 RNA ESTELITA+probe Ql (Unsp spec) Not detected Not Detected [facility] Parainfluenza virus 2 RNA ESTELITA+probe Ql (Unsp spec) Not detected Not Detected [facility] Parainfluenza virus 3 RNA ESTELITA+probe Ql (Unsp spec) Not detected Not Detected [facility] Parainfluenza virus 4 RNA ESTELITA+probe Ql (Unsp spec) Not detected Not Detected [facility] Rhinovirus+Enterovirus RNA ESTELITA+probe Ql (Unsp spec) Not detected Not Detected [facility] RSV RNA ESTELITA+probe Ql (Unsp spec) Not detected Not Detected [facility] SARS-CoV-2 (COVID-19) RNA ESTELITA+probe Ql (Unsp spec) Not detected NOT DETECTED [facility] ALBUMINon 04-28-2023 Albumin [Mass/Vol] 4.0 g/dL Normal 3.4-5.0 [facility] Comment on above: Performed By: #### C MP #### [facility] [address] [place] [address] Dr. Dwight Waters ALKALINE PHOSPHAon ALP [Catalytic activity/Vol] 106 U/L Normal 46-116 [facility] Comment on above: Performed By: #### F [id number] #### [facility] [address] [place] [address] Dr. Dwight Waters BILIRUBIN CONJUGATED (DIRECT )on 04-28-2023 BILI, CONJUGATED 0.3 mg/dL Critically high 0.0-0.2 [facility] Comment on above: Performed By: #### C MP #### [facility] [address] [place] [address] Dr. Dwight Waters BILIRUBIN TOTALon 04-28-2023 Bilirubin [Mass/Vol] 1.4 mg/dL Critically high 0.2-1.0 [facility] Comment on above: Performed By: #### C MP #### [facility] [address] [place] [address] Dr. Dwight Waters BUNon 04-28-2023 Urea nitrogen [Mass/Vol] 12.0 mg/dL Normal 7.0-18.0 [facility] Comment on above: Performed By: #### U RTPCR #### [facility] [address] [place] [address] Dr. Dwight Waters CALCIUMon 04-28-2023 Calcium [Mass/Vol] 9.3 mg/dL Normal 8.5-10.1 [facility] Comment on above: Performed By: #### U RTPCR #### [facility] [address] [place] [address] Dr. Dwight Waters CBC AUTO DIFFon 04-28-2023 BASO # 0.1 103/ul Normal 0.0-0.1 [facility] Comment on above: Performed By: #### C BC #### [facility] [address] [place] [address] Dr. Dwight Waters Basophils/100 WBC (Bld) 0.9 % Normal 0.2-2.0 [facility] Comment on above: Performed By: #### C BC #### [facility] [address] [place] [address] Dr. Dwight Waters EO # 0.2 103/ul Normal 0.0-0.7 [facility] Comment on above: Performed By: #### C BC #### [facility] [address] [place] [address] Dr. Dwight Waters Eosinophils/100 WBC (Bld) 3.8 % Normal 0.9-7.0 [facility] Comment on above: Performed By: #### C BC #### [facility] [address] [place] [address] Dr. Dwight Waters Erythrocyte distribution width (RBC) [Ratio] 12.5 % Normal 11.0-15.0 [facility] Comment on above: Performed By: #### C BC #### [facility] [address] [place] [address] Dr. Dwight Waters Hematocrit (Bld) [Volume fraction] 49.8 % Normal 42.0-54.0 [facility] Comment on above: Performed By: #### C BC #### [facility] [address] [place] [address] Dr. Dwight Waters Hemoglobin (Bld) [Mass/Vol] 16.4 g/dL Normal 14.0-18.0 [facility] Comment on above: Performed By: #### C BC #### [facility] [address] [place] [address] Dr. Dwight Waters IG # 0.01 10e3/ul Normal 0.00-0.03 [facility] Comment on above: Performed By: #### C BC #### [facility] [address] [place] [address] Dr. Dwight Waters IG % 0.2 % Normal 0.0-0.5 [facility] Comment on above: Performed By: #### C BC #### [facility] [address] [place] [address] Dr. Dwight Waters LYMPH # 2.1 103/ul Normal 1.2-3.8 [facility] Comment on above: Performed By: #### C BC #### [facility] [address] [place] [address] Dr. Dwight Waters Lymphocytes/100 WBC (Bld) 39.1 % Normal 20.5-60.0 [facility] Comment on above: Performed By: #### C BC #### [facility] [address] [place] [address] Dr. Dwight Waters MANUAL DIFF REQ NO Normal [facility] Comment on above: Performed By: #### C BC #### [facility] [address] [place] [address] Dr. Dwight Waters MCH (RBC) [Entitic mass] 28.6 pg Normal 25.9-34.0 [facility] Comment on above: Performed By: #### C BC #### [facility] [address] [place] [address] Dr. Dwight Waters MCHC (RBC) [Mass/Vol] 32.9 g/dL Normal 29.9-35.2 [facility] Comment on above: Performed By: #### C BC #### [facility] [address] [address] [address] Dwight Waters MCV (RBC) [Entitic vol] 86.9 fL Normal 80.0-94.0 [facility] Comment on above: Performed By: #### C BC #### [facility] [address] [address] [address] Dwight Waters MONO # 0.6 103/ul Normal 0.3-0.8 [facility] Comment on above: Performed By: #### C BC #### [facility] [address] [address] [address] Dwight Waters Monocytes/100 WBC (Bld) 10.6 % Normal 1.7-12.0 [facility] Comment on above: Performed By: #### C BC #### [facility] [address] [place] [address] Dr. Dwight Waters NEUT # 2.5 103/ul Normal 1.4-6.5 [facility] Comment on above: Performed By: #### C BC #### [facility] [address] [place] [address] Dr. Dwight Waters Neutrophils/100 WBC (Bld) 45.4 % Normal 43.0-75.0 [facility] Comment on above: Performed By: #### C BC #### [facility] [address] [address] [address] Dwight Waters Platelet mean volume (Bld) [Entitic vol] 9.3 fL Critically low 9.5-13.5 [facility] Comment on above: Performed By: #### C BC #### [facility] [address] [address] [address] Dwight Waters PLT 248 103/ul Normal 150-450 [facility] Comment on above: Performed By: #### C BC #### [facility] [address] [address] [address] Dwight Waters RBC 5.73 106/ul Normal 4.70-6.10 [facility] Comment on above: Performed By: #### C BC #### [facility] [address] [place] [address] Dr. Dwight Waters WBC 5.5 103/ul Normal 4.0-11.0 [facility] Comment on above: Performed By: #### C BC #### [facility] [address] [place] [address] Dr. Dwight Waters CHLORIDEon 04-28-2023 Chloride [Moles/Vol] 107 mmol/L Normal 98-107 [facility] Comment on above: Performed By: #### U RTPCR #### [facility] [address] [place] [address] Dr. Dwight Waters CO2on 04-28-2023 CO2 [Moles/Vol] 28.9 mmol/L Normal 21.0-32.0 [facility] Comment on above: Performed By: #### U RTPCR #### [facility] [address] [place] [address] Dr. Dwight Waters CREATININEon 04-28-2023 Creatinine [Mass/Vol] 1.17 mg/dL Normal 0.70-1.30 [facility] Comment on above: Performed By: #### U RTPCR #### [facility] [address] [place] [address] Dr. Dwight Waters EGFR-AF FINNISH >60 Normal >=60 [facility] Comment on above: Performed By: #### U RTPCR #### [facility] [address] [place] [address] Dr. Dwight Waters EGFR-NON AF FINNISH >60 Normal >=60 [facility] Comment on above: Performed By: #### U RTPCR #### [facility] [address] [place] [address] Dr. Dwight Waters GGTon 04-28-2023 Gamma glutamyl transferase [Catalytic activity/Vol] 27 U/L Normal 15-85 [facility] Comment on above: Performed By: #### U RTPCR #### [facility] [address] [place] [address] Dr. Dwight Waters GLUCOSE BLOODon 04-28-2023 Glucose [Mass/Vol] 110 mg/dL Critically high 74-106 [facility] Comment on above: Performed By: #### U RTPCR #### [facility] [address] [place] [address] Dr. Dwight Waters MAGNESIUMon 04-28-2023 Magnesium [Mass/Vol] 1.7 mg/dL Critically low 1.8-2.4 [facility] Comment on above: Performed By: #### U RTPCR #### [facility] [address] [place] [address] Dr. Dwight Waters NAon 04-28-2023 Sodium [Moles/Vol] 144 mmol/L Normal 136-145 [facility] Comment on above: Performed By: #### U RTPCR #### [facility] [address] [place] [address] Dr. Dwight Waters PHOSPHORUSon 04-28-2023 Phosphate [Mass/Vol] 3.2 mg/dL Normal 2.6-4.7 [facility] Comment on above: Performed By: #### U RTPCR #### [facility] [address] [place] [address] Dr. Dwight Waters POTASSIUMon 04-28-2023 Potassium [Moles/Vol] 4.0 mmol/L Normal 3.5-5.1 [facility] Comment on above: Performed By: #### U RTPCR #### [facility] [address] [place] [address] Dr. Dwight Waters SGOTon 04-28-2023 AST [Catalytic activity/Vol] 25 U/L Normal 15-37 [facility] Comment on above: Performed By: #### C MP #### [facility] [address] [place] [address] Dr. Dwight Waters SGPTon 04-28-2023 ALT [Catalytic activity/Vol] 40 U/L Normal 16-63 [facility] Comment on above: Performed By: #### C MP #### [facility] [address] [place] [address] Dr. Dwight Waters URINE T PROTEIN CREAT RATIOo n 04-28-2023 Protein (U) [Mass/Vol] 10.1 mg/dL Normal <=12.0 [facility] Comment on above: Performed By: #### U RTPCR #### [facility] [address] [place] [address] Dr. Dwight Waters UR PROT CREAT RAT 0.14 Normal [facility] Comment on above: Performed By: #### U RTPCR #### [facility] [address] [place] [address] Dr. Dwight Waters URINE CREAT 74.40 mg/dL Normal 20.00-300.00 [facility] Comment on above: Performed By: #### U RTPCR #### [facility] [address] [place] [address] Dr. Dwight Waters BK VIRUS PCR QUANTon 023 BKV DNA QUANT PCR PLASMA Negative Normal Negative [facility] Comment on above: Result Comment: No B K DNA detected. . The linear range of the assay is 22 - 100,000,000 IU/mL. Performed By: #### B KVIRUS #### [facility] [address] [place] [address] Dr. Dwight Waters Log10 BKV DNA Plasma Normal [facility] Comment on above: Performed By: #### B KVIRUS #### [facility] [address] [place] [address] Dr. Dwight Waters FK506 (TACROLIMUS) WHOLE BLO ODon 03-04-2023 Tacrolimus (FK506), Blood 5.9 ng/mL Normal 2.0-20.0 [facility] Comment on above: Result Comment: Trou gh (immediately following transplant) 15.0 . Trough (steady state, 2 weeks or more after transplant): 3.0 - 8.0 . Performed by LC-MS/MS technology. Performed By: #### C MP #### [facility] [address] [place] [address] Dr. Dwight Waters ALBUMINon 03-02-2023 Albumin [Mass/Vol] 3.9 g/dL Normal 3.4-5.0 [facility] Comment on above: Performed By: #### U RTPCR #### [facility] [address] [place] [address] Dr. Dwight Waters ALKALINE PHOSPHAon ALP [Catalytic activity/Vol] 105 U/L Normal 46-116 [facility] Comment on above: Performed By: #### U RTPCR #### [facility] [address] [place] [address] Dr. Dwight Waters BILIRUBIN CONJUGATED (DIRECT )on 03-02-2023 BILI, CONJUGATED 0.2 mg/dL Normal 0.0-0.2 [facility] Comment on above: Performed By: #### U RTPCR #### [facility] [address] [place] [address] Dr. Dwight Waters BILIRUBIN TOTALon 03-02-2023 Bilirubin [Mass/Vol] 0.9 mg/dL Normal 0.2-1.0 [facility] Comment on above: Performed By: #### U RTPCR #### [facility] [address] [place] [address] Dr. Dwight Waters CBC AUTO DIFFon 03-02-2023 BASO # 0.1 103/ul Normal 0.0-0.1 [facility] Comment on above: Performed By: #### C BC #### [facility] [address] [place] [address] Dr. Dwight Waters Basophils/100 WBC (Bld) 0.9 % Normal 0.2-2.0 [facility] Comment on above: Performed By: #### C BC #### [facility] [address] [place] [address] Dr. Dwight Waters EO # 0.2 103/ul Normal 0.0-0.7 [facility] Comment on above: Performed By: #### C BC #### [facility] [address] [place] [address] Dr. Dwight Waters Eosinophils/100 WBC (Bld) 3.5 % Normal 0.9-7.0 [facility] Comment on above: Performed By: #### C BC #### [facility] [address] [place] [address] Dr. Dwight Waters Erythrocyte distribution width (RBC) [Ratio] 12.7 % Normal 11.0-15.0 [facility] Comment on above: Performed By: #### C BC #### [facility] [address] [address] [address] Dwight Waters Hematocrit (Bld) [Volume fraction] 48.2 % Normal 42.0-54.0 [facility] Comment on above: Performed By: #### C BC #### [facility] [address] [place] [address] Dr. Dwight Waters Hemoglobin (Bld) [Mass/Vol] 15.9 g/dL Normal 14.0-18.0 [facility] Comment on above: Performed By: #### C BC #### [facility] [address] [place] [address] Dr. Dwight Waters IG # 0.01 10e3/ul Normal 0.00-0.03 [facility] Comment on above: Performed By: #### C BC #### [facility] [address] [place] [address] Dr. Dwight Waters IG % 0.2 % Normal 0.0-0.5 [facility] Comment on above: Performed By: #### C BC #### [facility] [address] [place] [address] Dr. Dwight Waters LYMPH # 2.1 103/ul Normal 1.2-3.8 [facility] Comment on above: Performed By: #### C BC #### [facility] [address] [place] [address] Dr. Dwight Waters Lymphocytes/100 WBC (Bld) 37.4 % Normal 20.5-60.0 [facility] Comment on above: Performed By: #### C BC #### [facility] [address] [place] [address] Dr. Dwight Waters MANUAL DIFF REQ NO Normal [facility] Comment on above: Performed By: #### C BC #### [facility] [address] [place] [address] Dr. Dwight Waters MCH (RBC) [Entitic mass] 28.3 pg Normal 25.9-34.0 [facility] Comment on above: Performed By: #### C BC #### [facility] [address] [address] [address] Dwight Waters MCHC (RBC) [Mass/Vol] 33.0 g/dL Normal 29.9-35.2 [facility] Comment on above: Performed By: #### C BC #### [facility] [address] [address] [address] Dwight Waters MCV (RBC) [Entitic vol] 85.8 fL Normal 80.0-94.0 [facility] Comment on above: Performed By: #### C BC #### [facility] [address] [address] [address] Dwight Waters MONO # 0.6 103/ul Normal 0.3-0.8 [facility] Comment on above: Performed By: #### C BC #### [facility] [address] [place] [address] Dr. Dwight Waters Monocytes/100 WBC (Bld) 10.2 % Normal 1.7-12.0 [facility] Comment on above: Performed By: #### C BC #### [facility] [address] [place] [address] Dr. Dwight Waters NEUT # 2.7 103/ul Normal 1.4-6.5 [facility] Comment on above: Performed By: #### C BC #### [facility] [address] [place] [address] Dr. Dwight Waters Neutrophils/100 WBC (Bld) 47.8 % Normal 43.0-75.0 [facility] Comment on above: Performed By: #### C BC #### [facility] [address] [place] [address] Dr. Dwight Waters Platelet mean volume (Bld) [Entitic vol] 9.3 fL Critically low 9.5-13.5 [facility] Comment on above: Performed By: #### C BC #### [facility] [address] [place] [address] Dr. Dwight Waters PLT 241 103/ul Normal 150-450 [facility] Comment on above: Performed By: #### C BC #### [facility] [address] [place] [address] Dr. Dwight Waters RBC 5.62 106/ul Normal 4.70-6.10 [facility] Comment on above: Performed By: #### C BC #### [facility] [address] [place] [address] Dr. Dwight Waters WBC 5.7 103/ul Normal 4.0-11.0 [facility] Comment on above: Performed By: #### C BC #### [facility] [address] [place] [address] Dr. Dwight Waters GGTon 03-02-2023 Gamma glutamyl transferase [Catalytic activity/Vol] 25 U/L Normal 15-85 [facility] Comment on above: Performed By: #### U RTPCR #### [facility] [address] [place] [address] Dr. Dwight Waters MAGNESIUMon 03-02-2023 Magnesium [Mass/Vol] 1.6 mg/dL Critically low 1.8-2.4 [facility] Comment on above: Performed By: #### U RTPCR #### [facility] [address] [place] [address] Dr. Dwight Waters PHOSPHORUSon 03-02-2023 Phosphate [Mass/Vol] 3.6 mg/dL Normal 2.6-4.7 [facility] Comment on above: Performed By: #### U RTPCR #### [facility] [address] [place] [address] Dr. Dwight Waters PROF CHEM 8 (BAS METB)on Anion gap [Moles/Vol] 9.4 mmol/L Normal [facility] Comment on above: Performed By: #### U RTPCR #### [facility] [address] [place] [address] Dr. Dwight Waters Calcium [Mass/Vol] 9.3 mg/dL Normal 8.5-10.1 [facility] Comment on above: Performed By: #### U RTPCR #### [facility] [address] [place] [address] Dr. Dwight Waters Chloride [Moles/Vol] 108 mmol/L Critically high 98-107 [facility] Comment on above: Performed By: #### U RTPCR #### [facility] [address] [address] [address] Dwight Waters CO2 [Moles/Vol] 27.2 mmol/L Normal 21.0-32.0 [facility] Comment on above: Performed By: #### U RTPCR #### [facility] [address] [address] [address] Dwight Waters Creatinine [Mass/Vol] 1.12 mg/dL Normal 0.70-1.30 [facility] Comment on above: Performed By: #### U RTPCR #### [facility] [address] [address] [address] Dwight Waters EGFR-AF FINNISH >60 Normal >=60 [facility] Comment on above: Performed By: #### U RTPCR #### [facility] [address] [address] [address] Dwight Waters EGFR-NON AF FINNISH >60 Normal >=60 [facility] Comment on above: Performed By: #### U RTPCR #### [facility] [address] [address] [address] Dwight Waters Glucose [Mass/Vol] 113 mg/dL Critically high 74-106 [facility] Comment on above: Performed By: #### U RTPCR #### [facility] [address] [address] [address] Dwight Waters Potassium [Moles/Vol] 3.6 mmol/L Normal 3.5-5.1 [facility] Comment on above: Performed By: #### U RTPCR #### [facility] [address] [address] [address] Dwight Waters Sodium [Moles/Vol] 141 mmol/L Normal 136-145 [facility] Comment on above: Performed By: #### U RTPCR #### [facility] [address] [address] [address] Dwight Waters Urea nitrogen [Mass/Vol] 14.0 mg/dL Normal 7.0-18.0 [facility] Comment on above: Performed By: #### U RTPCR #### [facility] [address] [place] [address] Dr. Dwight Waters Urea nitrogen/Creatinine [Mass ratio] 12.5 mg/mg Normal [facility] Comment on above: Performed By: #### U RTPCR #### [facility] [address] [place] [address] Dr. Dwight Waters SGOTon 03-02-2023 AST [Catalytic activity/Vol] 20 U/L Normal 15-37 [facility] Comment on above: Performed By: #### U RTPCR #### [facility] [address] [place] [address] Dr. Dwight Waters SGPTon 03-02-2023 ALT [Catalytic activity/Vol] 30 U/L Normal 16-63 [facility] Comment on above: Performed By: #### U RTPCR #### [facility] [address] [place] [address] Dr. Dwight Waters URINE T PROTEIN CREAT RATIOo n 03-02-2023 Protein (U) [Mass/Vol] 10.3 mg/dL Normal <=12.0 [facility] Comment on above: Performed By: #### U RTPCR #### [facility] [address] [place] [address] Dr. Dwight Waters UR PROT CREAT RAT 0.15 Normal [facility] Comment on above: Performed By: #### U RTPCR #### [facility] [address] [place] [address] Dr. Dwight Waters URINE CREAT 68.96 mg/dL Normal 20.00-300.00 [facility] Comment on above: Performed By: #### U RTPCR #### [facility] [address] [place] [address] Dr. Dwight Waters BK VIRUS PCR QUANTon 023 BKV DNA QUANT PCR PLASMA Negative Normal Negative [facility] Comment on above: Result Comment: No B K DNA detected. . The linear range of the assay is 22 - 100,000,000 IU/mL. Performed By: #### C MP #### [facility] [address] [place] [address] Dr. Dwight Waters Log10 BKV DNA Plasma Normal [facility] Comment on above: Performed By: #### C MP #### [facility] [address] [place] [address] Dr. Dwight Waters FK506 (TACROLIMUS) WHOLE BLO ODon 12-31-2022 Tacrolimus (FK506), Blood 5.6 ng/mL Normal 2.0-20.0 [facility] Comment on above: Result Comment: Trou gh (immediately following transplant) 15.0 . Trough (steady state, 2 weeks or more after transplant): 3.0 - 8.0 . Performed by LC-MS/MS technology. Performed By: #### C MP #### [facility] [address] [place] [address] Dr. Dwight Waters ALKALINE PHOSPHAon ALP [Catalytic activity/Vol] 96 U/L Normal 46-116 [facility] Comment on above: Performed By: #### C BC #### [facility] [address] [place] [address] Dr. Dwight Waters BILIRUBIN CONJUGATED (DIRECT )on 12-29-2022 BILI, CONJUGATED 0.3 mg/dL Critically high 0.0-0.2 [facility] Comment on above: Performed By: #### C BC #### [facility] [address] [place] [address] Dr. Dwight Waters BILIRUBIN TOTALon 12-29-2022 Bilirubin [Mass/Vol] 1.1 mg/dL Critically high 0.2-1.0 [facility] Comment on above: Performed By: #### C BC #### [facility] [address] [place] [address] Dr. Dwight Waters CBC AUTO DIFFon 12-29-2022 BASO # 0.1 103/ul Normal 0.0-0.1 [facility] Comment on above: Performed By: #### C MP #### [facility] [address] [place] [address] Dr. Dwight Waters Basophils/100 WBC (Bld) 0.8 % Normal 0.2-2.0 [facility] Comment on above: Performed By: #### C MP #### [facility] [address] [place] [address] Dr. Dwight Waters EO # 0.2 103/ul Normal 0.0-0.7 [facility] Comment on above: Performed By: #### C MP #### [facility] [address] [place] [address] Dr. Dwight Waters Eosinophils/100 WBC (Bld) 3.0 % Normal 0.9-7.0 [facility] Comment on above: Performed By: #### C MP #### [facility] [address] [place] [address] Dr. Dwight Waters Erythrocyte distribution width (RBC) [Ratio] 12.9 % Normal 11.0-15.0 [facility] Comment on above: Performed By: #### C MP #### [facility] [address] [place] [address] Dr. Dwight Waters Hematocrit (Bld) [Volume fraction] 46.9 % Normal 42.0-54.0 [facility] Comment on above: Performed By: #### C MP #### [facility] [address] [place] [address] Dr. Dwight Waters Hemoglobin (Bld) [Mass/Vol] 16.1 g/dL Normal 14.0-18.0 [facility] Comment on above: Performed By: #### C MP #### [facility] [address] [place] [address] Dr. Dwight Waters IG # 0.01 10e3/ul Normal 0.00-0.03 [facility] Comment on above: Performed By: #### C MP #### [facility] [address] [place] [address] Dr. Dwight Waters IG % 0.2 % Normal 0.0-0.5 [facility] Comment on above: Performed By: #### C MP #### [facility] [address] [place] [address] Dr. Dwight Waters LYMPH # 1.8 103/ul Normal 1.2-3.8 [facility] Comment on above: Performed By: #### C MP #### [facility] [address] [address] [address] Dwight Waters Lymphocytes/100 WBC (Bld) 27.9 % Normal 20.5-60.0 [facility] Comment on above: Performed By: #### C MP #### [facility] [address] [place] [address] Dr. Dwight Waters MANUAL DIFF REQ NO Normal [facility] Comment on above: Performed By: #### C MP #### [facility] [address] [place] [address] Dr. Dwight Waters MCH (RBC) [Entitic mass] 28.5 pg Normal 25.9-34.0 [facility] Comment on above: Performed By: #### C MP #### [facility] [address] [place] [address] Dr. Dwight Waters MCHC (RBC) [Mass/Vol] 34.3 g/dL Normal 29.9-35.2 [facility] Comment on above: Performed By: #### C MP #### [facility] [address] [place] [address] Dr. Dwight Waters MCV (RBC) [Entitic vol] 83.2 fL Normal 80.0-94.0 [facility] Comment on above: Performed By: #### C MP #### [facility] [address] [place] [address] Dr. Dwight Waters MONO # 0.5 103/ul Normal 0.3-0.8 [facility] Comment on above: Performed By: #### C MP #### [facility] [address] [place] [address] Dr. Dwight Waters Monocytes/100 WBC (Bld) 8.1 % Normal 1.7-12.0 [facility] Comment on above: Performed By: #### C MP #### [facility] [address] [place] [address] Dr. Dwight Waters NEUT # 3.8 103/ul Normal 1.4-6.5 [facility] Comment on above: Performed By: #### C MP #### [facility] [address] [place] [address] Dr. Dwight Waters Neutrophils/100 WBC (Bld) 60.0 % Normal 43.0-75.0 [facility] Comment on above: Performed By: #### C MP #### [facility] [address] [address] [address] Dwight Waters Platelet mean volume (Bld) [Entitic vol] 9.2 fL Critically low 9.5-13.5 [facility] Comment on above: Performed By: #### C MP #### [facility] [address] [address] [address] Dwight Waters PLT 225 103/ul Normal 150-450 [facility] Comment on above: Performed By: #### C MP #### [facility] [address] [address] [address] Dwight Waters RBC 5.64 106/ul Normal 4.70-6.10 [facility] Comment on above: Performed By: #### C MP #### [facility] [address] [address] [address] Dwight Waters WBC 6.3 103/ul Normal 4.0-11.0 [facility] Comment on above: Performed By: #### C MP #### [facility] [address] [address] [address] Dwight Waters GGTon 12-29-2022 Gamma glutamyl transferase [Catalytic activity/Vol] 24 U/L Normal 15-85 [facility] Comment on above: Performed By: #### C MP #### [facility] [address] [address] [address] Dwight Waters LIPID PROFILEon 12-29-2022 CHOL-HDL RATIO NORM SEE BELOW Normal [facility] Comment on above: Result Comment: 3.3 - 4.4 LOW RISK 4.4 - 7.1 AVERAGE RISK 7.1 - 11.0 MODERATE RISK >11.0 HIGH RISK Performed By: #### U RTPCR #### [facility] [address] [place] [address] Dr. Dwight Waters Cholesterol [Mass/Vol] 87 mg/dL Normal <=200 [facility] Comment on above: Performed By: #### U RTPCR #### [facility] [address] [address] [address] Dwight Waters Cholesterol in HDL [Mass/Vol] 44 mg/dL Normal 40-60 [facility] Comment on above: Performed By: #### U RTPCR #### [facility] [address] [address] [address] Dwight Waters Cholesterol in LDL [Mass/Vol] 33.0 mg/dL Normal [facility] Comment on above: Performed By: #### U RTPCR #### [facility] [address] [address] [address] Dwight Waters Cholesterol.total/Chol esterol in HDL [Mass ratio] 2.0 {ratio} Normal [facility] Comment on above: Performed By: #### U RTPCR #### [facility] [address] [place] [address] Dr. Dwight Waters HDL NORMAL > or = 60 mg/dl - LO W CARDIOVASCULAR RISK <40 mg/dl - HIGH CARDIOVASCULAR RISK Normal [facility] Comment on above: Performed By: #### U RTPCR #### [facility] [address] [address] [address] Dwight Waters LDL CALC NORMAL SEE BELOW Normal [facility] Comment on above: Result Comment: <100 mg/dl OPTIMAL 100 - 129 mg/dl NEAR OR ABOVE OPTIMAL 130 - 159 mg/dl BORDERLINE HIGH 160 - 189 mg/dl HIGH >190 mg/dl VERY HIGH Performed By: #### U RTPCR #### [facility] [address] [address] [address] Dwight Waters Triglyceride [Mass/Vol] 50 mg/dL Normal <=150 [facility] Comment on above: Performed By: #### U RTPCR #### [facility] [address] [place] [address] Dr. Dwight Waters VLDL CALC 10.0 mg/dL Normal [facility] Comment on above: Performed By: #### U RTPCR #### [facility] [address] [address] [address] Dwight Waters MAGNESIUMon 01-30-2023 Magnesium [Mass/Vol] 1.6 mg/dL Critically low 1.8-2.4 [facility] Comment on above: Performed By: #### C BC #### [facility] [address] [place] [address] Dr. Dwight Waters RENAL FUNCTION PANELon 12-29 Albumin [Mass/Vol] 3.9 g/dL Normal 3.4-5.0 [facility] Comment on above: Performed By: #### C BC #### [facility] [address] [place] [address] Dr. Dwight Waters Calcium [Mass/Vol] 9.2 mg/dL Normal 8.5-10.1 [facility] Comment on above: Performed By: #### C BC #### [facility] [address] [place] [address] Dr. Dwight Waters Chloride [Moles/Vol] 109 mmol/L Critically high 98-107 [facility] Comment on above: Performed By: #### C BC #### [facility] [address] [place] [address] Dr. Dwight Waters CO2 [Moles/Vol] 27.0 mmol/L Normal 21.0-32.0 [facility] Comment on above: Performed By: #### C BC #### [facility] [address] [place] [address] Dr. Dwight Waters Creatinine [Mass/Vol] 1.02 mg/dL Normal 0.70-1.30 [facility] Comment on above: Performed By: #### C BC #### [facility] [address] [place] [address] Dr. Dwight Waters EGFR-AF FINNISH >60 Normal >=60 [facility] Comment on above: Performed By: #### C BC #### [facility] [address] [place] [address] Dr. Dwight Waters EGFR-NON AF FINNISH >60 Normal >=60 [facility] Comment on above: Performed By: #### C BC #### [facility] [address] [place] [address] Dr. Dwight Waters Glucose [Mass/Vol] 117 mg/dL Critically high 74-106 [facility] Comment on above: Performed By: #### C BC #### [facility] [address] [place] [address] Dr. Dwight Waters Phosphate [Mass/Vol] 3.2 mg/dL Normal 2.6-4.7 [facility] Comment on above: Performed By: #### C BC #### [facility] [address] [place] [address] Dr. Dwight Waters Potassium [Moles/Vol] 4.1 mmol/L Normal 3.5-5.1 [facility] Comment on above: Performed By: #### C BC #### [facility] [address] [place] [address] Dr. Dwight Waters Sodium [Moles/Vol] 144 mmol/L Normal 136-145 [facility] Comment on above: Performed By: #### C BC #### [facility] [address] [place] [address] Dr. Dwight Waters Urea nitrogen [Mass/Vol] 13.0 mg/dL Normal 7.0-18.0 [facility] Comment on above: Performed By: #### C BC #### [facility] [address] [place] [address] Dr. Dwight Waters SGOTon 12-29-2022 AST [Catalytic activity/Vol] 21 U/L Normal 15-37 [facility] Comment on above: Performed By: #### C BC #### [facility] [address] [place] [address] Dr. Dwight Waters SGPTon 12-29-2022 ALT [Catalytic activity/Vol] 32 U/L Normal 16-63 [facility] Comment on above: Performed By: #### C BC #### [facility] [address] [place] [address] Dr. Dwight Waters URINE T PROTEIN CREAT RATIOo n 12-29-2022 Protein (U) [Mass/Vol] 14.3 mg/dL Critically high <=12.0 [facility] Comment on above: Performed By: #### U RTPCR #### [facility] [address] [address] [address] Dwight Waters UR PROT CREAT RAT 0.17 Normal [facility] Comment on above: Performed By: #### U RTPCR #### [facility] [address] [place] [address] Dr. Dwight Waters URINE CREAT 86.58 mg/dL Normal 20.00-300.00 [facility] Comment on above: Performed By: #### U RTPCR #### [facility] [address] [place] [address] Dr. Dwight Waters FK506 (TACROLIMUS) WHOLE BLO ODon 11-06-2022 Tacrolimus (FK506), Blood 4.9 ng/mL Normal 2.0-20.0 [facility] Comment on above: Result Comment: Trou gh (immediately following transplant) 15.0 . Trough (steady state, 2 weeks or more after transplant): 3.0 - 8.0 . Performed by LC-MS/MS technology. Performed By: #### U RTPCR #### [facility] [address] [place] [address] Dr. Dwight Waters ALKALINE PHOSPHAon ALP [Catalytic activity/Vol] 86 U/L Normal 46-116 [facility] Comment on above: Performed By: #### U RTPCR #### [facility] [address] [place] [address] Dr. Dwight Waters BILIRUBIN CONJUGATED (DIRECT )on 11-04-2022 BILI, CONJUGATED 0.2 mg/dL Normal 0.0-0.2 [facility] Comment on above: Performed By: #### U RTPCR #### [facility] [address] [place] [address] Dr. Dwight Waters BILIRUBIN TOTALon 11-04-2022 Bilirubin [Mass/Vol] 0.8 mg/dL Normal 0.2-1.0 [facility] Comment on above: Performed By: #### U RTPCR #### [facility] [address] [place] [address] Dr. Dwight Waters CBC AUTO DIFFon 11-04-2022 BASO # 0.1 103/ul Normal 0.0-0.1 [facility] Comment on above: Performed By: #### U RTPCR #### [facility] [address] [address] [address] Dwight Waters Basophils/100 WBC (Bld) 0.9 % Normal 0.2-2.0 [facility] Comment on above: Performed By: #### U RTPCR #### [facility] [address] [address] [address] Dwight Waters EO # 0.2 103/ul Normal 0.0-0.7 [facility] Comment on above: Performed By: #### U RTPCR #### [facility] [address] [address] [address] Dwight Waters Eosinophils/100 WBC (Bld) 3.7 % Normal 0.9-7.0 [facility] Comment on above: Performed By: #### U RTPCR #### [facility] [address] [place] [address] Dr. Dwight Waters Erythrocyte distribution width (RBC) [Ratio] 12.9 % Normal 11.0-15.0 [facility] Comment on above: Performed By: #### U RTPCR #### [facility] [address] [place] [address] Dr. Dwight Waters Hematocrit (Bld) [Volume fraction] 48.3 % Normal 42.0-54.0 [facility] Comment on above: Performed By: #### U RTPCR #### [facility] [address] [place] [address] Dr. Dwight Waters Hemoglobin (Bld) [Mass/Vol] 15.6 g/dL Normal 14.0-18.0 [facility] Comment on above: Performed By: #### U RTPCR #### [facility] [address] [address] [address] Dwight Waters IG # 0.01 10e3/ul Normal 0.00-0.03 [facility] Comment on above: Performed By: #### U RTPCR #### [facility] [address] [address] [address] Dwight Waters IG % 0.2 % Normal 0.0-0.5 [facility] Comment on above: Performed By: #### U RTPCR #### [facility] [address] [address] [address] Dwight Waters LYMPH # 1.9 103/ul Normal 1.2-3.8 [facility] Comment on above: Performed By: #### U RTPCR #### [facility] [address] [address] [address] Dwight Waters Lymphocytes/100 WBC (Bld) 33.0 % Normal 20.5-60.0 [facility] Comment on above: Performed By: #### U RTPCR #### [facility] [address] [address] [address] Dwight Waters MANUAL DIFF REQ NO Normal [facility] Comment on above: Performed By: #### U RTPCR #### [facility] [address] [place] [address] Dr. Dwight Waters MCH (RBC) [Entitic mass] 27.6 pg Normal 25.9-34.0 [facility] Comment on above: Performed By: #### U RTPCR #### [facility] [address] [place] [address] Dr. Dwight Waters MCHC (RBC) [Mass/Vol] 32.3 g/dL Normal 29.9-35.2 [facility] Comment on above: Performed By: #### U RTPCR #### [facility] [address] [address] [address] Dwight Waters MCV (RBC) [Entitic vol] 85.5 fL Normal 80.0-94.0 [facility] Comment on above: Performed By: #### U RTPCR #### [facility] [address] [address] [address] Dwight Waters MONO # 0.5 103/ul Normal 0.3-0.8 [facility] Comment on above: Performed By: #### U RTPCR #### [facility] [address] [address] [address] Dwight Waters Monocytes/100 WBC (Bld) 8.8 % Normal 1.7-12.0 [facility] Comment on above: Performed By: #### U RTPCR #### [facility] [address] [address] [address] Dwight Waters NEUT # 3.1 103/ul Normal 1.4-6.5 [facility] Comment on above: Performed By: #### U RTPCR #### [facility] [address] [address] [address] Dwight Waters Neutrophils/100 WBC (Bld) 53.4 % Normal 43.0-75.0 [facility] Comment on above: Performed By: #### U RTPCR #### [facility] [address] [address] [address] Dwight Waters Platelet mean volume (Bld) [Entitic vol] 9.2 fL Critically low 9.5-13.5 [facility] Comment on above: Performed By: #### U RTPCR #### [facility] [address] [address] [address] Dwight Waters PLT 255 103/ul Normal 150-450 [facility] Comment on above: Performed By: #### U RTPCR #### [facility] [address] [address] [address] Dwight Waters RBC 5.65 106/ul Normal 4.70-6.10 [facility] Comment on above: Performed By: #### U RTPCR #### [facility] [address] [place] [address] Dr. Dwight Waters WBC 5.7 103/ul Normal 4.0-11.0 [facility] Comment on above: Performed By: #### U RTPCR #### [facility] [address] [address] [address] Dwight Waters GGTon 11-04-2022 Gamma glutamyl transferase [Catalytic activity/Vol] 22 U/L Normal 15-85 [facility] Comment on above: Performed By: #### U RTPCR #### [facility] [address] [address] [address] Dwight Waters MAGNESIUMon 11-04-2022 Magnesium [Mass/Vol] 1.8 mg/dL Normal 1.8-2.4 [facility] Comment on above: Performed By: #### U RTPCR #### [facility] [address] [address] [address] Dwight Waters RENAL FUNCTION PANELon 11-04 Albumin [Mass/Vol] 3.8 g/dL Normal 3.4-5.0 [facility] Comment on above: Performed By: #### U RTPCR #### [facility] [address] [place] [address] Dr. Dwight Waters Calcium [Mass/Vol] 9.3 mg/dL Normal 8.5-10.1 [facility] Comment on above: Performed By: #### U RTPCR #### [facility] [address] [place] [address] Dr. Dwight Waters Chloride [Moles/Vol] 107 mmol/L Normal 98-107 [facility] Comment on above: Performed By: #### U RTPCR #### [facility] [address] [place] [address] Dr. Dwight Waters CO2 [Moles/Vol] 29.2 mmol/L Normal 21.0-32.0 [facility] Comment on above: Performed By: #### U RTPCR #### [facility] [address] [place] [address] Dr. Dwight Waters Creatinine [Mass/Vol] 1.07 mg/dL Normal 0.70-1.30 [facility] Comment on above: Performed By: #### U RTPCR #### [facility] [address] [place] [address] Dr. Dwight Waters EGFR-AF FINNISH >60 Normal >=60 [facility] Comment on above: Performed By: #### U RTPCR #### [facility] [address] [place] [address] Dr. Dwight Waters EGFR-NON AF FINNISH >60 Normal >=60 [facility] Comment on above: Performed By: #### U RTPCR #### [facility] [address] [place] [address] Dr. Dwight Waters Glucose [Mass/Vol] 106 mg/dL Normal 74-106 [facility] Comment on above: Performed By: #### U RTPCR #### [facility] [address] [place] [address] Dr. Dwight Waters Phosphate [Mass/Vol] 2.8 mg/dL Normal 2.6-4.7 [facility] Comment on above: Performed By: #### U RTPCR #### [facility] [address] [place] [address] Dr. Dwight Waters Potassium [Moles/Vol] 4.1 mmol/L Normal 3.5-5.1 [facility] Comment on above: Performed By: #### U RTPCR #### [facility] [address] [place] [address] Dr. Dwight Waters Sodium [Moles/Vol] 143 mmol/L Normal 136-145 [facility] Comment on above: Performed By: #### U RTPCR #### [facility] [address] [place] [address] Dr. Dwight Waters Urea nitrogen [Mass/Vol] 12.0 mg/dL Normal 7.0-18.0 [facility] Comment on above: Performed By: #### U RTPCR #### [facility] [address] [place] [address] Dr. Dwight Albert 11-04-2022 AST [Catalytic activity/Vol] 19 U/L Normal 15-37 [facility] Comment on above: Performed By: #### U RTPCR #### [facility] [address] [place] [address] Dr. Dwight Waters SGPTon 11-04-2022 ALT [Catalytic activity/Vol] 28 U/L Normal 16-63 [facility] Comment on above: Performed By: #### U RTPCR #### [facility] [address] [place] [address] Dr. Dwight Waters URINE T PROTEIN CREAT RATIOo n 11-04-2022 Protein (U) [Mass/Vol] 10.7 mg/dL Normal <=12.0 [facility] Comment on above: Performed By: #### U RTPCR #### [facility] [address] [place] [address] Dr. Dwight Waters UR PROT CREAT RAT 0.13 Normal [facility] Comment on above: Performed By: #### U RTPCR #### [facility] [address] [place] [address] Dr. Dwight Waters URINE CREAT 84.50 mg/dL Normal 20.00-300.00 [facility] Comment on above: Performed By: #### U RTPCR #### [facility] [address] [place] [address] Dr. Dwight Waters FK506 (TACROLIMUS) WHOLE BLO ODon 09-18-2022 Tacrolimus (FK506), Blood 4.6 ng/mL Normal 2.0-20.0 [facility] Comment on above: Result Comment: Trou gh (immediately following transplant) 15.0 . Trough (steady state, 2 weeks or more after transplant): 3.0 - 8.0 . Performed by LC-MS/MS technology. Performed By: #### U RTPCR #### [facility] [address] [place] [address] Dr. Dwight Waters BK VIRUS PCR QUANTon 022 BKV DNA QUANT PCR PLASMA Negative Normal Negative [facility] Comment on above: Result Comment: No B K DNA detected. . The linear range of the assay is 22 - 100,000,000 IU/mL. Performed By: #### U RTPCR #### [facility] [address] [place] [address] Dr. Dwight Waters Log10 BKV DNA Plasma Normal [facility] Comment on above: Performed By: #### U RTPCR #### [facility] [address] [place] [address] Dr. Dwight Waters ALKALINE PHOSPHAon ALP [Catalytic activity/Vol] 92 U/L Normal 46-116 [facility] Comment on above: Performed By: #### U RTPCR #### [facility] [address] [place] [address] Dr. Dwight Waters BILIRUBIN CONJUGATED (DIRECT )on 09-15-2022 BILI, CONJUGATED 0.3 mg/dL Critically high 0.0-0.2 [facility] Comment on above: Performed By: #### U RTPCR #### [facility] [address] [place] [address] Dr. Dwight Waters BILIRUBIN TOTALon 09-15-2022 Bilirubin [Mass/Vol] 1.1 mg/dL Critically high 0.2-1.0 [facility] Comment on above: Performed By: #### U RTPCR #### [facility] [address] [place] [address] Dr. Dwight Waters CBC AUTO DIFFon 09-15-2022 BASO # 0.1 103/ul Normal 0.0-0.1 [facility] Comment on above: Performed By: #### C BC #### [facility] [address] [place] [address] Dr. Dwight Waters Basophils/100 WBC (Bld) 0.8 % Normal 0.2-2.0 [facility] Comment on above: Performed By: #### C BC #### [facility] [address] [place] [address] Dr. Dwight Waters EO # 0.2 103/ul Normal 0.0-0.7 [facility] Comment on above: Performed By: #### C BC #### [facility] [address] [place] [address] Dr. Dwight Waters Eosinophils/100 WBC (Bld) 3.5 % Normal 0.9-7.0 [facility] Comment on above: Performed By: #### C BC #### [facility] [address] [place] [address] Dr. Dwight Waters Erythrocyte distribution width (RBC) [Ratio] 13.0 % Normal 11.0-15.0 [facility] Comment on above: Performed By: #### C BC #### [facility] [address] [place] [address] Dr. Dwight Waters Hematocrit (Bld) [Volume fraction] 50.0 % Normal 42.0-54.0 [facility] Comment on above: Performed By: #### C BC #### [facility] [address] [place] [address] Dr. Dwight Waters Hemoglobin (Bld) [Mass/Vol] 16.0 g/dL Normal 14.0-18.0 [facility] Comment on above: Performed By: #### C BC #### [facility] [address] [place] [address] Dr. Dwight Waters IG # 0.02 10e3/ul Normal 0.00-0.03 [facility] Comment on above: Performed By: #### C BC #### [facility] [address] [place] [address] Dr. Dwight Waters IG % 0.3 % Normal 0.0-0.5 [facility] Comment on above: Performed By: #### C BC #### [facility] [address] [place] [address] Dr. Dwight Waters LYMPH # 1.8 103/ul Normal 1.2-3.8 [facility] Comment on above: Performed By: #### C BC #### [facility] [address] [place] [address] Dr. Dwight Waters Lymphocytes/100 WBC (Bld) 26.5 % Normal 20.5-60.0 [facility] Comment on above: Performed By: #### C BC #### [facility] [address] [place] [address] Dr. Dwight Waters MANUAL DIFF REQ NO Normal [facility] Comment on above: Performed By: #### C BC #### [facility] [address] [place] [address] Dr. Dwight Waters MCH (RBC) [Entitic mass] 28.1 pg Normal 25.9-34.0 [facility] Comment on above: Performed By: #### C BC #### [facility] [address] [place] [address] Dr. Dwight Waters MCHC (RBC) [Mass/Vol] 32.0 g/dL Normal 29.9-35.2 [facility] Comment on above: Performed By: #### C BC #### [facility] [address] [place] [address] Dr. Dwight Waters MCV (RBC) [Entitic vol] 87.9 fL Normal 80.0-94.0 [facility] Comment on above: Performed By: #### C BC #### [facility] [address] [address] [address] Dwight Waters MONO # 0.5 103/ul Normal 0.3-0.8 [facility] Comment on above: Performed By: #### C BC #### [facility] [address] [address] [address] Dwight Waters Monocytes/100 WBC (Bld) 8.1 % Normal 1.7-12.0 [facility] Comment on above: Performed By: #### C BC #### [facility] [address] [address] [address] Dwight Waters NEUT # 4.0 103/ul Normal 1.4-6.5 [facility] Comment on above: Performed By: #### C BC #### [facility] [address] [address] [address] Dwight Waters Neutrophils/100 WBC (Bld) 60.8 % Normal 43.0-75.0 [facility] Comment on above: Performed By: #### C BC #### [facility] [address] [address] [address] Dwight Waters Platelet mean volume (Bld) [Entitic vol] 9.4 fL Critically low 9.5-13.5 [facility] Comment on above: Performed By: #### C BC #### [facility] [address] [address] [address] Dwight Waters PLT 265 103/ul Normal 150-450 [facility] Comment on above: Performed By: #### C BC #### [facility] [address] [address] [address] Dwight Waters RBC 5.69 106/ul Normal 4.70-6.10 [facility] Comment on above: Performed By: #### C BC #### [facility] [address] [address] [address] Dwight Waters WBC 6.6 103/ul Normal 4.0-11.0 [facility] Comment on above: Performed By: #### C BC #### [facility] [address] [place] [address] Dr. Dwight Waters GGTon 09-15-2022 Gamma glutamyl transferase [Catalytic activity/Vol] 23 U/L Normal 15-85 [facility] Comment on above: Performed By: #### U RTPCR #### [facility] [address] [place] [address] Dr. Dwight Waters MAGNESIUMon 09-15-2022 Magnesium [Mass/Vol] 1.8 mg/dL Normal 1.8-2.4 [facility] Comment on above: Performed By: #### U RTPCR #### [facility] [address] [place] [address] Dr. Dwight Waters RENAL FUNCTION PANELon 09-15 Albumin [Mass/Vol] 4.1 g/dL Normal 3.4-5.0 [facility] Comment on above: Performed By: #### C BC #### [facility] [address] [place] [address] Dr. Dwight Waters Calcium [Mass/Vol] 9.3 mg/dL Normal 8.5-10.1 [facility] Comment on above: Performed By: #### C BC #### [facility] [address] [place] [address] Dr. Dwight Waters Chloride [Moles/Vol] 107 mmol/L Normal 98-107 [facility] Comment on above: Performed By: #### C BC #### [facility] [address] [place] [address] Dr. Dwight Waters CO2 [Moles/Vol] 25.6 mmol/L Normal 21.0-32.0 [facility] Comment on above: Performed By: #### C BC #### [facility] [address] [place] [address] Dr. Dwight Waters Creatinine [Mass/Vol] 1.01 mg/dL Normal 0.70-1.30 [facility] Comment on above: Performed By: #### C BC #### [facility] [address] [place] [address] Dr. Dwight Waters EGFR-AF FINNISH >60 Normal >=60 [facility] Comment on above: Performed By: #### C BC #### [facility] [address] [address] [address] Dwight Waters EGFR-NON AF FINNISH >60 Normal >=60 [facility] Comment on above: Performed By: #### C BC #### [facility] [address] [address] [address] Dwight Waters Glucose [Mass/Vol] 119 mg/dL Critically high 74-106 [facility] Comment on above: Performed By: #### C BC #### [facility] [address] [address] [address] Dwight Waters Phosphate [Mass/Vol] 2.8 mg/dL Normal 2.6-4.7 [facility] Comment on above: Performed By: #### C BC #### [facility] [address] [place] [address] Dr. Dwight Waters Potassium [Moles/Vol] 4.0 mmol/L Normal 3.5-5.1 [facility] Comment on above: Performed By: #### C BC #### [facility] [address] [place] [address] Dr. Dwight Waters Sodium [Moles/Vol] 141 mmol/L Normal 136-145 [facility] Comment on above: Performed By: #### C BC #### [facility] [address] [place] [address] Dr. Dwight Waters Urea nitrogen [Mass/Vol] 15.0 mg/dL Normal 7.0-18.0 [facility] Comment on above: Performed By: #### C BC #### [facility] [address] [place] [address] Dr. Dwight Waters SGOTon 09-15-2022 AST [Catalytic activity/Vol] 18 U/L Normal 15-37 [facility] Comment on above: Performed By: #### U RTPCR #### [facility] [address] [place] [address] Dr. Dwight Waters SGPTon 09-15-2022 ALT [Catalytic activity/Vol] 32 U/L Normal 16-63 [facility] Comment on above: Performed By: #### C BC #### [facility] [address] [address] [address] Dwight Waters URINE T PROTEIN CREAT RATIOo n 09-15-2022 Protein (U) [Mass/Vol] 14.1 mg/dL Critically high <=12.0 [facility] Comment on above: Performed By: #### U RTPCR #### [facility] [address] [address] [address] Dwight Waters UR PROT CREAT RAT 0.14 Normal [facility] Comment on above: Performed By: #### U RTPCR #### [facility] [address] [address] [address] Dwight Waters URINE CREAT 98.89 mg/dL Normal 20.00-300.00 [facility] Comment on above: Performed By: #### U RTPCR #### [facility] [address] [address] [address] Dwight Waters CAROTID ART BILon 022 [...] JIMENEZ Date: 2022-08-28 13:20 Normal [facility] FK506 (TACROLIMUS) WHOLE BLO ODon 08-17-2022 Tacrolimus (FK506), Blood 9.9 ng/mL Normal 2.0-20.0 [facility] Comment on above: Result Comment: Trou gh (immediately following transplant) 15.0 . Trough (steady state, 2 weeks or more after transplant): 3.0 - 8.0 . Performed by LC-MS/MS technology. Performed By: #### F [id number] #### [facility] [address] [place] [address] Dr. Dwight Waters BK VIRUS PCR QUANTon 022 BKV DNA QUANT PCR PLASMA Negative Normal Negative [facility] Comment on above: Result Comment: No B K DNA detected. . The linear range of the assay is 22 - 100,000,000 IU/mL. Performed By: #### U RTPCR #### [facility] [address] [place] [address] Dr. Dwight Waters Log10 BKV DNA Plasma Normal [facility] Comment on above: Performed By: #### U RTPCR #### [facility] [address] [place] [address] Dr. Dwight Waters ALBUMINon 08-14-2022 Albumin [Mass/Vol] 4.2 g/dL Normal 3.4-5.0 [facility] Comment on above: Performed By: #### F [id number] #### [facility] [address] [place] [address] Dr. Dwight Waters ALKALINE PHOSPHAon ALP [Catalytic activity/Vol] 92 U/L Normal 46-116 [facility] Comment on above: Performed By: #### C BC #### [facility] [address] [place] [address] Dr. Dwight Waters BILIRUBIN CONJUGATED (DIRECT )on 08-14-2022 BILI, CONJUGATED 0.3 mg/dL Critically high 0.0-0.2 [facility] Comment on above: Performed By: #### F [id number] #### [facility] [address] [place] [address] Dr. Dwight Waters BILIRUBIN TOTALon 08-14-2022 Bilirubin [Mass/Vol] 1.5 mg/dL Critically high 0.2-1.0 [facility] Comment on above: Performed By: #### F [id number] #### [facility] [address] [place] [address] Dr. Dwight Waters BUNon 08-14-2022 Urea nitrogen [Mass/Vol] 11.0 mg/dL Normal 7.0-18.0 [facility] Comment on above: Performed By: #### C BC #### [facility] [address] [place] [address] Dr. Dwight Waters CALCIUMon 08-14-2022 Calcium [Mass/Vol] 9.4 mg/dL Normal 8.5-10.1 [facility] Comment on above: Performed By: #### F [id number] #### [facility] [address] [place] [address] Dr. Dwight Waters CBC AUTO DIFFon 08-14-2022 BASO # 0.0 103/ul Normal 0.0-0.1 [facility] Comment on above: Performed By: #### C MP #### [facility] [address] [place] [address] Dr. Dwight Waters Basophils/100 WBC (Bld) 0.5 % Normal 0.2-2.0 [facility] Comment on above: Performed By: #### C MP #### [facility] [address] [place] [address] Dr. Dwight Waters EO # 0.2 103/ul Normal 0.0-0.7 [facility] Comment on above: Performed By: #### C MP #### [facility] [address] [place] [address] Dr. Dwight Waters Eosinophils/100 WBC (Bld) 2.6 % Normal 0.9-7.0 [facility] Comment on above: Performed By: #### C MP #### [facility] [address] [place] [address] Dr. Dwight Waters Erythrocyte distribution width (RBC) [Ratio] 13.1 % Normal 11.0-15.0 [facility] Comment on above: Performed By: #### C MP #### [facility] [address] [place] [address] Dr. Dwight Waters Hematocrit (Bld) [Volume fraction] 47.0 % Normal 42.0-54.0 [facility] Comment on above: Performed By: #### C MP #### [facility] [address] [place] [address] Dr. Dwight Waters Hemoglobin (Bld) [Mass/Vol] 15.3 g/dL Normal 14.0-18.0 [facility] Comment on above: Performed By: #### C MP #### [facility] [address] [place] [address] Dr. Dwight Waters IG # 0.01 10e3/ul Normal 0.00-0.03 [facility] Comment on above: Performed By: #### C MP #### [facility] [address] [place] [address] Dr. Dwight Waters IG % 0.1 % Normal 0.0-0.5 [facility] Comment on above: Performed By: #### C MP #### [facility] [address] [place] [address] Dr. Dwight Waters LYMPH # 2.3 103/ul Normal 1.2-3.8 [facility] Comment on above: Performed By: #### C MP #### [facility] [address] [place] [address] Dr. Dwight Waters Lymphocytes/100 WBC (Bld) 29.8 % Normal 20.5-60.0 [facility] Comment on above: Performed By: #### C MP #### [facility] [address] [place] [address] Dr. Dwight Waters MANUAL DIFF REQ NO Normal [facility] Comment on above: Performed By: #### C MP #### [facility] [address] [place] [address] Dr. Dwight Waters MCH (RBC) [Entitic mass] 28.2 pg Normal 25.9-34.0 [facility] Comment on above: Performed By: #### C MP #### [facility] [address] [place] [address] Dr. Dwight Waters MCHC (RBC) [Mass/Vol] 32.6 g/dL Normal 29.9-35.2 [facility] Comment on above: Performed By: #### C MP #### [facility] [address] [place] [address] Dr. Dwight Waters MCV (RBC) [Entitic vol] 86.7 fL Normal 80.0-94.0 [facility] Comment on above: Performed By: #### C MP #### [facility] [address] [place] [address] Dr. Dwight Waetrs MONO # 0.7 103/ul Normal 0.3-0.8 [facility] Comment on above: Performed By: #### C MP #### [facility] [address] [place] [address] Dr. Dwight Waters Monocytes/100 WBC (Bld) 8.5 % Normal 1.7-12.0 [facility] Comment on above: Performed By: #### C MP #### [facility] [address] [place] [address] Dr. Dwight Waters NEUT # 4.5 103/ul Normal 1.4-6.5 [facility] Comment on above: Performed By: #### C MP #### [facility] [address] [place] [address] Dr. Dwight Waters Neutrophils/100 WBC (Bld) 58.5 % Normal 43.0-75.0 [facility] Comment on above: Performed By: #### C MP #### [facility] [address] [place] [address] Dr. Dwight Waters Platelet mean volume (Bld) [Entitic vol] 9.7 fL Normal 9.5-13.5 [facility] Comment on above: Performed By: #### C MP #### [facility] [address] [place] [address] Dr. Dwight Waters PLT 266 103/ul Normal 150-450 [facility] Comment on above: Performed By: #### C MP #### [facility] [address] [place] [address] Dr. Dwight Waters RBC 5.42 106/ul Normal 4.70-6.10 [facility] Comment on above: Performed By: #### C MP #### [facility] [address] [place] [address] Dr. Dwight Waters WBC 7.6 103/ul Normal 4.0-11.0 [facility] Comment on above: Performed By: #### C MP #### [facility] [address] [place] [address] Dr. Dwight Waters CHLORIDEon 08-14-2022 Chloride [Moles/Vol] 104 mmol/L Normal 98-107 [facility] Comment on above: Performed By: #### C BC #### [facility] [address] [place] [address] Dr. Dwight Waters CO2on 08-14-2022 CO2 [Moles/Vol] 27.9 mmol/L Normal 21.0-32.0 [facility] Comment on above: Performed By: #### C BC #### [facility] [address] [place] [address] Dr. Dwight Waters CREATININEon 08-14-2022 Creatinine [Mass/Vol] 1.08 mg/dL Normal 0.70-1.30 [facility] Comment on above: Performed By: #### C BC #### [facility] [address] [place] [address] Dr. Dwight Waters EGFR-AF FINNISH >60 Normal >=60 [facility] Comment on above: Performed By: #### C BC #### [facility] [address] [place] [address] Dr. Dwight Waters EGFR-NON AF FINNISH >60 Normal >=60 [facility] Comment on above: Performed By: #### C BC #### [facility] [address] [place] [address] Dr. Dwight Waters GGTon 08-14-2022 Gamma glutamyl transferase [Catalytic activity/Vol] 24 U/L Normal 15-85 [facility] Comment on above: Performed By: #### F [id number] #### [facility] [address] [place] [address] Dr. Dwight Waters GLUCOSE BLOODon 08-14-2022 Glucose [Mass/Vol] 111 mg/dL Critically high 74-106 [facility] Comment on above: Performed By: #### C BC #### [facility] [address] [place] [address] Dr. Dwight Waters MAGNESIUMon 08-14-2022 Magnesium [Mass/Vol] 1.4 mg/dL Critically low 1.8-2.4 [facility] Comment on above: Performed By: #### C BC #### [facility] [address] [place] [address] Dr. Dwight Waters NAon 08-14-2022 Sodium [Moles/Vol] 140 mmol/L Normal 136-145 [facility] Comment on above: Performed By: #### F [id number] #### [facility] [address] [place] [address] Dr. Dwight Waters PHOSPHORUSon 08-14-2022 Phosphate [Mass/Vol] 3.1 mg/dL Normal 2.6-4.7 [facility] Comment on above: Performed By: #### C BC #### [facility] [address] [place] [address] Dr. Dwight Waters POTASSIUMon 08-14-2022 Potassium [Moles/Vol] 3.5 mmol/L Normal 3.5-5.1 [facility] Comment on above: Performed By: #### C BC #### [facility] [address] [place] [address] Dr. Dwight Waters SGAlicia 08-14-2022 AST [Catalytic activity/Vol] 17 U/L Normal 15-37 [facility] Comment on above: Performed By: #### F [id number] #### [facility] [address] [place] [address] Dr. Dwight Waters SGPTon 08-14-2022 ALT [Catalytic activity/Vol] 22 U/L Normal 16-63 [facility] Comment on above: Performed By: #### F [id number] #### [facility] [address] [place] [address] Dr. Dwight Waters URINE T PROTEIN CREAT RATIOo n 08-14-2022 Protein (U) [Mass/Vol] 10.7 mg/dL Normal <=12.0 [facility] Comment on above: Performed By: #### F [id number] #### [facility] [address] [place] [address] Dr. Dwight Waters UR PROT CREAT RAT 0.10 Normal [facility] Comment on above: Performed By: #### F [id number] #### [facility] [address] [place] [address] Dr. Dwight Waters URINE CREAT 104.28 mg/dL Normal 20.00-300.00 [facility] Comment on above: Performed By: #### F [id number] #### [facility] [address] [place] [address] Dr. Dwight Waters NEPHROSTOMY TUBE REMOVALon 0 [...] Assisting physician present for entire procedure: yes [facility] Radiology Study observation (narrative) [facility] FK506 (TACROLIMUS) WHOLE BLO ODon 07-06-2022 Tacrolimus (FK506), Blood 9.5 ng/mL Normal 2.0-20.0 [facility] Comment on above: Result Comment: Trou gh (immediately following transplant) 15.0 . Trough (steady state, 2 weeks or more after transplant): 3.0 - 8.0 . Performed by LC-MS/MS technology. Performed By: #### C MP #### [facility] [address] [place] [address] Dr. Dwight Waters ALBUMINon 07-03-2022 Albumin [Mass/Vol] 3.7 g/dL Normal 3.4-5.0 [facility] Comment on above: Performed By: #### U RTPCR #### [facility] [address] [place] [address] Dr. Dwight Waters ALKALINE PHOSPHAon ALP [Catalytic activity/Vol] 76 U/L Normal 46-116 [facility] Comment on above: Performed By: #### U RTPCR #### [facility] [address] [place] [address] Dr. Dwight Waters BILIRUBIN CONJUGATED (DIRECT )on 07-03-2022 BILI, CONJUGATED 0.3 mg/dL Critically high 0.0-0.2 [facility] Comment on above: Performed By: #### C BC #### [facility] [address] [place] [address] Dr. Dwight Waters BILIRUBIN TOTALon 07-03-2022 Bilirubin [Mass/Vol] 1.4 mg/dL Critically high 0.2-1.0 [facility] Comment on above: Performed By: #### C BC #### [facility] [address] [place] [address] Dr. Dwight Waters BUNon 07-03-2022 Urea nitrogen [Mass/Vol] 15.0 mg/dL Normal 7.0-18.0 [facility] Comment on above: Performed By: #### C BC #### [facility] [address] [place] [address] Dr. Dwight Waters CALCIUMon 07-03-2022 Calcium [Mass/Vol] 9.4 mg/dL Normal 8.5-10.1 [facility] Comment on above: Performed By: #### U RTPCR #### [facility] [address] [place] [address] Dr. Dwight Waters CBC AUTO DIFFon 07-03-2022 BASO # 0.0 103/ul Normal 0.0-0.1 [facility] Comment on above: Performed By: #### U RTPCR #### [facility] [address] [place] [address] Dr. Dwight Waters Basophils/100 WBC (Bld) 0.6 % Normal 0.2-2.0 [facility] Comment on above: Performed By: #### U RTPCR #### [facility] [address] [place] [address] Dr. Dwight Waters EO # 0.2 103/ul Normal 0.0-0.7 [facility] Comment on above: Performed By: #### U RTPCR #### [facility] [address] [place] [address] Dr. Dwight Waters Eosinophils/100 WBC (Bld) 3.5 % Normal 0.9-7.0 [facility] Comment on above: Performed By: #### U RTPCR #### [facility] [address] [place] [address] Dr. Dwight Waters Erythrocyte distribution width (RBC) [Ratio] 12.9 % Normal 11.0-15.0 [facility] Comment on above: Performed By: #### U RTPCR #### [facility] [address] [place] [address] Dr. Dwight Waters Hematocrit (Bld) [Volume fraction] 44.2 % Normal 42.0-54.0 [facility] Comment on above: Performed By: #### U RTPCR #### [facility] [address] [place] [address] Dr. Dwight Waters Hemoglobin (Bld) [Mass/Vol] 14.6 g/dL Normal 14.0-18.0 [facility] Comment on above: Performed By: #### U RTPCR #### [facility] [address] [place] [address] Dr. Dwight Waters IG # 0.02 10e3/ul Normal 0.00-0.03 [facility] Comment on above: Performed By: #### U RTPCR #### [facility] [address] [place] [address] Dr. Dwight Waters IG % 0.3 % Normal 0.0-0.5 [facility] Comment on above: Performed By: #### U RTPCR #### [facility] [address] [place], [place] [id number] Dr. Dwight Waters LYMPH # 2.0 103/ul Normal 1.2-3.8 [facility] Comment on above: Performed By: #### U RTPCR #### [facility] [address] [place] [address] Dr. Dwight Waters Lymphocytes/100 WBC (Bld) 28.4 % Normal 20.5-60.0 [facility] Comment on above: Performed By: #### U RTPCR #### [facility] [address] [place] [address] Dr. Dwight Waters MANUAL DIFF REQ NO Normal [facility] Comment on above: Performed By: #### U RTPCR #### [facility] [address] [place] [address] Dr. Dwight Waters MCH (RBC) [Entitic mass] 28.6 pg Normal 25.9-34.0 [facility] Comment on above: Performed By: #### U RTPCR #### [facility] [address] [place] [address] Dr. Dwight Waters MCHC (RBC) [Mass/Vol] 33.0 g/dL Normal 29.9-35.2 [facility] Comment on above: Performed By: #### U RTPCR #### [facility] [address] [place] [address] Dr. Dwight Waters MCV (RBC) [Entitic vol] 86.7 fL Normal 80.0-94.0 [facility] Comment on above: Performed By: #### U RTPCR #### [facility] [address] [place] [address] Dr. Dwight Waters MONO # 0.6 103/ul Normal 0.3-0.8 [facility] Comment on above: Performed By: #### U RTPCR #### [facility] [address] [place] [address] Dr. Dwight Waters Monocytes/100 WBC (Bld) 9.1 % Normal 1.7-12.0 [facility] Comment on above: Performed By: #### U RTPCR #### [facility] [address] [place] [address] Dr. Dwight Waters NEUT # 4.0 103/ul Normal 1.4-6.5 [facility] Comment on above: Performed By: #### U RTPCR #### [facility] [address] [place] [address] Dr. Dwight Waters Neutrophils/100 WBC (Bld) 58.1 % Normal 43.0-75.0 [facility] Comment on above: Performed By: #### U RTPCR #### [facility] [address] [place] [address] Dr. Dwight Waters Platelet mean volume (Bld) [Entitic vol] 9.5 fL Normal 9.5-13.5 [facility] Comment on above: Performed By: #### U RTPCR #### [facility] [address] [place] [address] Dr. Dwight Waters PLT 292 103/ul Normal 150-450 [facility] Comment on above: Performed By: #### U RTPCR #### [facility] [address] [place] [address] Dr. Dwight Waters RBC 5.10 106/ul Normal 4.70-6.10 [facility] Comment on above: Performed By: #### U RTPCR #### [facility] [address] [place] [address] Dr. Dwight Waters WBC 6.9 103/ul Normal 4.0-11.0 [facility] Comment on above: Performed By: #### U RTPCR #### [facility] [address] [place] [address] Dr. Dwight Waters CHLORIDEon 07-03-2022 Chloride [Moles/Vol] 108 mmol/L Critically high 98-107 [facility] Comment on above: Performed By: #### C BC #### [facility] [address] [place] [address] Dr. Dwight Waters CO2on 07-03-2022 CO2 [Moles/Vol] 25.2 mmol/L Normal 21.0-32.0 [facility] Comment on above: Performed By: #### C BC #### [facility] [address] [place] [address] Dr. Dwight Waters CREATININEon 07-03-2022 Creatinine [Mass/Vol] 1.03 mg/dL Normal 0.70-1.30 [facility] Comment on above: Performed By: #### U RTPCR #### [facility] [address] [address] [address] Dwight Waters EGFR-AF FINNISH >60 Normal >=60 [facility] Comment on above: Performed By: #### U RTPCR #### [facility] [address] [address] [address] Dwight Waters EGFR-NON AF FINNISH >60 Normal >=60 [facility] Comment on above: Performed By: #### U RTPCR #### [facility] [address] [address] [address] Dwight Waters GGTon 07-03-2022 Gamma glutamyl transferase [Catalytic activity/Vol] 31 U/L Normal 15-85 [facility] Comment on above: Performed By: #### U RTPCR #### [facility] [address] [address] [address] Dwight Waters GLUCOSE BLOODon 07-03-2022 Glucose [Mass/Vol] 119 mg/dL Critically high 74-106 [facility] Comment on above: Performed By: #### U RTPCR #### [facility] [address] [address] [address] Dwight Waters MAGNESIUMon 07-03-2022 Magnesium [Mass/Vol] 1.4 mg/dL Critically low 1.8-2.4 [facility] Comment on above: Performed By: #### C BC #### [facility] [address] [address] [address] Dwight Waters NAon 07-03-2022 Sodium [Moles/Vol] 142 mmol/L Normal 136-145 [facility] Comment on above: Performed By: #### C MP #### [facility] [address] [address] [address] Dwight Waters PHOSPHORUSon 07-03-2022 Phosphate [Mass/Vol] 3.4 mg/dL Normal 2.6-4.7 [facility] Comment on above: Performed By: #### C BC #### [facility] [address] [address] [address] Dwight Waters POTASSIUMon 07-03-2022 Potassium [Moles/Vol] 4.1 mmol/L Normal 3.5-5.1 [facility] Comment on above: Performed By: #### C BC #### [facility] [address] [place] [address] Dr. Dwight Waters SGOTon 07-03-2022 AST [Catalytic activity/Vol] 14 U/L Critically low 15-37 [facility] Comment on above: Performed By: #### C BC #### [facility] [address] [place] [address] Dr. Dwight Waters SGPTon 07-03-2022 ALT [Catalytic activity/Vol] 25 U/L Normal 16-63 [facility] Comment on above: Performed By: #### C BC #### [facility] [address] [place] [address] Dr. Dwight Waters US KIDNEYSon 07-03-2022 US KIDNEYS Ultrasound kidneys, bilateral HISTORY: Transplant of kidney , pain in the right lower quadrant COMPARISON: None. TECHNIQUE: Transabdominal ultrasound imaging of both kidneys was performed. FINDINGS: The council kidneys are diffusely echogenic and atrophic with cortical thinning. The right kidney measures 8.3 x 3.5 x 4.07 m and the left measures 9.9 x 3.8 x 3.6 cm. No hydronephrosis of the council kidneys. There is a renal transplant in [...] stone involving the renal transplant. 2. Atrophic council kidneys. 3. Normal bladder. Electronically authenticated by: ARCELIA PIZARRO Date: 2022-07-03 17:22 [address] [facility] [address] Abdomen and Pelvis WO geoff sosa 06-27-2022 IMPRESSION: 1. Both council kidneys are atrophic with improvement in right-sided [...] Adrenals: Adrenal glands are unremarkable. Kidneys: Both council kidneys are atrophic. Interval improvement in right council kidney hydronephrosis since May 15, 2022. Status [...] Adrenals: Adrenal glands are unremarkable. Kidneys: Both council kidneys are atrophic. Interval improvement in right council kidney hydronephrosis since May 15, 2022. Status [...] aggressive osseous lesions. IMPRESSION IMPRESSION: 1. Both council kidneys are atrophic with improvement in right-sided hydronephrosis since May 15, 2022. 2. 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 No hydronephrosis. No discrete perinephric collection. 3. Partially imaged postsurgical changes related to prior liver transplant. 4. The bladder is decompressed, limiting evaluation. [facility] Radiology Study observation (narrative) [facility] CT Abdomen and Pelvis WO con trastOrdered By: Gera Lu on 06-27-2022 [facility] Work Phone: CBC AUTO DIFFon 06-18-2022 BASO # 0.0 103/ul Normal 0.0-0.1 [facility] Comment on above: Performed By: #### U RTPCR #### [facility] [address] [address] [address] Dwight Waters Basophils/100 WBC (Bld) 0.5 % Normal 0.2-2.0 [facility] Comment on above: Performed By: #### U RTPCR #### [facility] [address] [address] [address] Dwight Waters EO # 0.2 103/ul Normal 0.0-0.7 [facility] Comment on above: Performed By: #### U RTPCR #### [facility] [address] [address] [address] Dwight Waters Eosinophils/100 WBC (Bld) 2.3 % Normal 0.9-7.0 [facility] Comment on above: Performed By: #### U RTPCR #### [facility] [address] [address] [address] Dwight Waters Erythrocyte distribution width (RBC) [Ratio] 12.9 % Normal 11.0-15.0 [facility] Comment on above: Performed By: #### U RTPCR #### [facility] [address] [address] [address] Dwight Waters Hematocrit (Bld) [Volume fraction] 41.2 % Critically low 42.0-54.0 [facility] Comment on above: Performed By: #### U RTPCR #### [facility] [address] [address] [address] Dwight Waters Hemoglobin (Bld) [Mass/Vol] 13.3 g/dL Critically low 14.0-18.0 [facility] Comment on above: Performed By: #### U RTPCR #### [facility] [address] [place] [address] Dr. Dwight Waters IG # 0.04 10e3/ul Critically high 0.00-0.03 [facility] Comment on above: Performed By: #### U RTPCR #### [facility] [address] [place] [address] Dr. Dwight Waters IG % 0.5 % Normal 0.0-0.5 [facility] Comment on above: Performed By: #### U RTPCR #### [facility] [address] [place] [address] Dr. Dwight Waters LYMPH # 2.0 103/ul Normal 1.2-3.8 [facility] Comment on above: Performed By: #### U RTPCR #### [facility] [address] [place] [address] Dr. Dwight Waters Lymphocytes/100 WBC (Bld) 22.9 % Normal 20.5-60.0 [facility] Comment on above: Performed By: #### U RTPCR #### [facility] [address] [place] [address] Dr. Dwight Waters MANUAL DIFF REQ NO Normal [facility] Comment on above: Performed By: #### U RTPCR #### [facility] [address] [place] [address] Dr. Dwight Waters MCH (RBC) [Entitic mass] 28.7 pg Normal 25.9-34.0 [facility] Comment on above: Performed By: #### U RTPCR #### [facility] [address] [place] [address] Dr. Dwight Waters MCHC (RBC) [Mass/Vol] 32.3 g/dL Normal 29.9-35.2 [facility] Comment on above: Performed By: #### U RTPCR #### [facility] [address] [place] [address] Dr. Dwight Waters MCV (RBC) [Entitic vol] 88.8 fL Normal 80.0-94.0 [facility] Comment on above: Performed By: #### U RTPCR #### [facility] [address] [address] [address] Dwight Waters MONO # 0.8 103/ul Normal 0.3-0.8 [facility] Comment on above: Performed By: #### U RTPCR #### [facility] [address] [address] [address] Dwight Waters Monocytes/100 WBC (Bld) 9.7 % Normal 1.7-12.0 [facility] Comment on above: Performed By: #### U RTPCR #### [facility] [address] [place] [address] Dr. Dwight Waters NEUT # 5.6 103/ul Normal 1.4-6.5 [facility] Comment on above: Performed By: #### U RTPCR #### [facility] [address] [place] [address] Dr. Dwight Waters Neutrophils/100 WBC (Bld) 64.1 % Normal 43.0-75.0 [facility] Comment on above: Performed By: #### U RTPCR #### [facility] [address] [place] [address] Dr. Dwight Waters Platelet mean volume (Bld) [Entitic vol] 10.0 fL Normal 9.5-13.5 [facility] Comment on above: Performed By: #### U RTPCR #### [facility] [address] [place] [address] Dr. Dwight Waters PLT 270 103/ul Normal 150-450 [facility] Comment on above: Performed By: #### U RTPCR #### [facility] [address] [place] [address] Dr. Dwight Waters RBC 4.64 106/ul Critically low 4.70-6.10 [facility] Comment on above: Performed By: #### U RTPCR #### [facility] [address] [place] [address] Dr. Dwight Waters WBC 8.7 103/ul Normal 4.0-11.0 [facility] Comment on above: Performed By: #### U RTPCR #### [facility] [address] [place] [address] Dr. Dwight Waters CULTURE URINEon 06-18-2022 CULTURE URINE Culture Observations : NO GROWTH. Normal [facility] Comment on above: Performed By: #### U RTPCR #### [facility] [address] [place] [address] Dr. Dwight Waters Covid-19 PCR ([facility])on 05-31 SARS-CoV-2 (COVID-19) RNA ESTELITA+probe Ql (Unsp spec) Not detected Normal NOT DETECTED [facility] Comment on above: Result Comment: When diagnostic [...] for this test is supported by the [place] of [employer] and Human Service's declaration that [...] Performed By: #### C BC #### [facility] [address] [place] [address] Dr. Dwight Waters ER URINE PROFILEon 2 Bilirubin Ql (U) Negative Normal NEGATIVE [facility] Comment on above: Performed By: #### U RTPCR #### [facility] [address] [place] [address] Dr. Dwight Waters Clarity (U) CLEAR Normal CLEAR [facility] Comment on above: Performed By: #### U RTPCR #### [facility] [address] [place] [address] Dr. Dwight Waters Color (U) YELLOW Normal YELLOW [facility] Comment on above: Performed By: #### U RTPCR #### [facility] [address] [address] [address] Dwight SHARMA A micrscopic examination will be performed if indicated. Normal [facility] Comment on above: Performed By: #### U RTPCR #### [facility] [address] [place] [address] Dr. Dwight Waters Glucose Ql (U) Negative Normal NEGATIVE [facility] Comment on above: Performed By: #### U RTPCR #### [facility] [address] [address] [address] Dwight Waters Hemoglobin Ql (U) LARGE Abnormal NEGATIVE [facility] Comment on above: Performed By: #### U RTPCR #### [facility] [address] [place] [address] Dr. Dwight Waters Ketones Ql (U) Negative Normal NEGATIVE [facility] Comment on above: Performed By: #### U RTPCR #### [facility] [address] [place] [address] Dr. Dwight Waters LEUKOCYTES TRACE Abnormal NEGATIVE [facility] Comment on above: Performed By: #### U RTPCR #### [facility] [address] [place] [address] Dr. Dwight Waters Nitrite Ql (U) Negative Normal NEGATIVE [facility] Comment on above: Performed By: #### U RTPCR #### [facility] [address] [place] [address] Dr. Dwight Waters pH (U) 6.0 [pH] Normal 5-9 [facility] Comment on above: Performed By: #### U RTPCR #### [facility] [address] [place] [address] Dr. Dwight Waters Protein (U) [Mass/Vol] 30 mg/dL Abnormal NEGAT MAYUR/ TRACE [facility] Comment on above: Performed By: #### U RTPCR #### [facility] [address] [place] [address] Dr. Dwight Waters SPEC GRAVITY >=1.030 Abnormal 1.005-<=1.025 [facility] Comment on above: Performed By: #### U RTPCR #### [facility] [address] [place] [address] Dr. Dwight Waters UR MICRO IND INDICATED Normal [facility] Comment on above: Performed By: #### U RTPCR #### [facility] [address] [place] [address] Dr. Dwight Waters Urobilinogen Qn (U) 0.2 {Alyssa'U}/dL Normal 0.2 - 1. 0 [facility] Comment on above: Performed By: #### U RTPCR #### [facility] [address] [place] [address] Dr. Dwight Waters PROF 14(COMP METB)on 022 Albumin [Mass/Vol] 3.7 g/dL Normal 3.4-5.0 [facility] Comment on above: Performed By: #### C MP #### [facility] [address] [place] [address] Dr. Dwight Waters Albumin/Globulin [Mass ratio] 0.9 {ratio} Normal [facility] Comment on above: Performed By: #### C MP #### [facility] [address] [place] [address] Dr. Dwight Waters ALP [Catalytic activity/Vol] 80 U/L Normal 46-116 [facility] Comment on above: Performed By: #### C MP #### [facility] [address] [place] [address] Dr. Dwight Waters ALT [Catalytic activity/Vol] 24 U/L Normal 16-63 [facility] Comment on above: Performed By: #### C MP #### [facility] [address] [place] [address] Dr. Dwight Waters Anion gap [Moles/Vol] 12.9 mmol/L Normal [facility] Comment on above: Performed By: #### C MP #### [facility] [address] [place] [address] Dr. Dwight Waters AST [Catalytic activity/Vol] 17 U/L Normal 15-37 [facility] Comment on above: Performed By: #### C MP #### [facility] [address] [address] [address] Dwight Waters Bilirubin [Mass/Vol] 0.8 mg/dL Normal 0.2-1.0 [facility] Comment on above: Performed By: #### C MP #### [facility] [address] [place] [address] Dr. Dwight Waters Calcium [Mass/Vol] 9.4 mg/dL Normal 8.5-10.1 [facility] Comment on above: Performed By: #### C MP #### [facility] [address] [place] [address] Dr. Dwight Waters Chloride [Moles/Vol] 106 mmol/L Normal 98-107 [facility] Comment on above: Performed By: #### C MP #### [facility] [address] [place] [address] Dr. Dwight Waters CO2 [Moles/Vol] 25.3 mmol/L Normal 21.0-32.0 [facility] Comment on above: Performed By: #### C MP #### [facility] [address] [place] [address] Dr. Dwight Waters Creatinine [Mass/Vol] 1.29 mg/dL Normal 0.70-1.30 [facility] Comment on above: Performed By: #### C MP #### [facility] [address] [place] [address] Dr. Dwight Waters EGFR-AF FINNISH >60 Normal >=60 [facility] Comment on above: Performed By: #### C MP #### [facility] [address] [place] [address] Dr. Dwight Waters EGFR-NON AF FINNISH 59 mL/min/1.73m2 Critically low >=60 [facility] Comment on above: Performed By: #### C MP #### [facility] [address] [place] [address] Dr. Dwight Waters Globulin (S) [Mass/Vol] 4.2 g/dL Normal [facility] Comment on above: Performed By: #### C MP #### [facility] [address] [place] [address] Dr. Dwight Waters Glucose [Mass/Vol] 106 mg/dL Normal 74-106 [facility] Comment on above: Performed By: #### C MP #### [facility] [address] [place] [address] Dr. Dwight Waters Potassium [Moles/Vol] 4.2 mmol/L Normal 3.5-5.1 [facility] Comment on above: Performed By: #### C MP #### [facility] [address] [place] [address] Dr. Dwight Waters Protein [Mass/Vol] 7.9 g/dL Normal 6.4-8.2 [facility] Comment on above: Performed By: #### C MP #### [facility] [address] [place] [address] Dr. Dwight Waters Sodium [Moles/Vol] 140 mmol/L Normal 136-145 [facility] Comment on above: Performed By: #### C MP #### [facility] [address] [place] [address] Dr. Dwight Waters Urea nitrogen [Mass/Vol] 22.0 mg/dL Critically high 7.0-18.0 [facility] Comment on above: Performed By: #### C MP #### [facility] [address] [place] [address] Dr. Dwight Waters Urea nitrogen/Creatinine [Mass ratio] 17.1 mg/mg Normal [facility] Comment on above: Performed By: #### C MP #### [facility] [address] [place] [address] Dr. Dwight Waters URINE MICROSCOPIC ONLYon BACTERIA TRACE Abnormal NONE SEEN [facility] Comment on above: Performed By: #### U RTPCR #### [facility] [address] [place] [address] Dr. Dwight Waters Bacteria identified Cx Nom (U) INDICATED Normal [facility] Comment on above: Performed By: #### U RTPCR #### [facility] [address] [place] [address] Dr. Dwight Waters CAST NONE SEEN Normal NONE SEEN [facility] Comment on above: Performed By: #### U RTPCR #### [facility] [address] [place] [address] Dr. Dwight Waters Crystals LM Nom (Urine sed) NONE SEEN Normal NONE SEEN [facility] Comment on above: Performed By: #### U RTPCR #### [facility] [address] [place] [address] Dr. Dwight Waters Epithelial cells LM Ql (Urine sed) NONE SEEN Normal NONE SEEN /RARE [facility] Comment on above: Performed By: #### U RTPCR #### [facility] [address] [place] [place] [address] Dr. Dwight Waters MUCOUS NONE SEEN Normal NONE SEEN [facility] Comment on above: Performed By: #### U RTPCR #### [facility] [address] [place] [address] Dr. Dwight Waters RBC 5-10 Abnormal 0-2 [facility] Comment on above: Performed By: #### U RTPCR #### [facility] [address] [place] [address] Dr. Dwight Waters WBC 10-20 Abnormal NONE SEEN [facility] Comment on above: Performed By: #### U RTPCR #### [facility] [address] [place] [address] Dr. Dwight Waters ALLOSCREEN RECIPIENT (POST T X PRA)on 06-13-2022 AB SPECIFICITY CLASS COMMENT Antibody Specificity testing performed by [employer]. cPRA calculation based on identification of HLA antibody specificities at MFI >2000 and/or presence of CREG antibodies. [facility] Comment on above: Some of the reagents used for testing in the Clinical Histocompatibility Laboratory have yet to be approved by the FDA. Our certification by CLIA to perform high complexity tests allows us to use these reagents in the context of a stringent QC program, and obviates the need for FDA approval.Testing performed by the [facility] Clinical Histocompatibility Laboratory. [facility] number: [id number]. CLIA number: [id number], Director: Carlito Merchant, PhD, D([facility]). ANTIBODY SPECIFICITY INTERPRETATION Detected [facility] CLASS I SPECIFICITIES Not detected [facility] CLASS II SPECIFICITIES Not detected [facility] HLA Ab (S) 0 % 0 [facility] EXTRA MICROon 06-13-2022 [facility] URINE CULTUREOrdered By: Jah Upton on 06-13-2022 Bacteria identified Cx Nom (Unsp spec) Growth [facility] Bacteria identified Cx Nom (Unsp spec) 10,000-50,000 CFU/mL Mixed skin shimon [facility] Comment on above: Multiple bacterial m orphotypes present. Suggest appropriate recollection if clinically indicated. [facility] CBC,PLATELETSon 06-12-2022 Erythrocyte distribution width (RBC) [Ratio] 13.0 % 10.9 - 14.3 % [facility] Hematocrit (Bld) [Volume fraction] 43.2 % 39.6 - 48.8 % [facility] Hemoglobin (Bld) [Mass/Vol] 13.9 g/dL 13.4 - 16.8 g/dL [facility] Interpretation and review of laboratory results Normal [facility] MCH (RBC) [Entitic mass] 28.7 pg 26.1 - 33.3 pg [facility] MCHC (RBC) [Mass/Vol] 32.2 g/dL 31.9 - 36.5 g/dL [facility] MCV (RBC) [Entitic vol] 89.1 fL 79.0 - 94.5 fL [facility] Platelet mean volume (Bld) [Entitic vol] 10.5 fL 8.7 - 12.3 fL [facility] Platelets (Bld) [#/Vol] 269 10*3/uL 146 - 337 K/uL [facility] RBC (Bld) [#/Vol] 4.85 10*6/uL [facility] WBC (Bld) [#/Vol] 7.68 10*3/uL 3.73 - 10. 10 K/uL [facility] CHEM 7 (LYTES,BUN,CREA,GLUC) on 06-12-2022 Anion gap [Moles/Vol] 14 mmol/L 7 - 17 mmol/L [facility] Chloride [Moles/Vol] 106 mmol/L 98 - 10 8 mmol/L [facility] CO2 [Moles/Vol] 25 mmol/L 21 - 31 mmol/L [facility] Creatinine [Mass/Vol] 1.26 mg/dL 0.70 - 1.30 mg/dL [facility] GFR/1.73 sq M.predicted CKD-EPI (S/P/Bld) [Vol rate/Area] 69 >=60 mL/min/1.73m2 [facility] Comment on above: Reported eGFR is bas ed on the CKD-EPI 2020 equation using creatinine, age, and sex. Glucose [Mass/Vol] 83 mg/dL 70 - 99 mg/dL [facility] Osmolality Calc [Osmolality] 295 [facility] Potassium [Moles/Vol] 3.8 mmol/L 3.5 - 5.0 mmol/L [facility] Sodium [Moles/Vol] 141 mmol/L 135 - 145 mmol/L [facility] Urea nitrogen [Mass/Vol] 18 mg/dL 7 - 25 mg/dL [facility] Urea nitrogen/Creatinine [Mass ratio] 14 mg/mg [facility] GGTon 06-12-2022 Gamma glutamyl transferase [Catalytic activity/Vol] 20 U/L 8 - 64 U/L [facility] HEMOGLOBIN [id number] By: Link Roche on 06-12-2022 Average glucose Estimated from glycated hemoglobin (Bld) [Mass/Vol] 126 mg/dL [facility] HbA1c (Bld) [Mass fraction] 6.0 % High 4.7 - 5.6 % [facility] Interpretation and review of laboratory results Abnormal [facility] HEPATIC FUNCTION PANELon Albumin [Mass/Vol] 4.3 g/dL 3.5 - 5.0 g/dL [facility] ALP [Catalytic activity/Vol] 78 U/L 32 - 126 U/L [facility] ALT [Catalytic activity/Vol] 12 U/L 10 - 52 U/L [facility] AST [Catalytic activity/Vol] 16 U/L 10 - 39 U/L [facility] Bilirubin [Mass/Vol] 1.0 mg/dL <1.5 [facility] Bilirubin.direct [Mass/Vol] 0.2 mg/dL <0.3 [facility] Protein [Mass/Vol] 7.5 g/dL 6.4 - 8.3 g/dL [facility] No Panel Informationon 06-12 Interpretation and review of laboratory results Normal [facility] PTH INTACTOrdered By: Marli Lizarraga on 06-12-2022 Interpretation and review of laboratory results Abnormal [facility] Parathyrin.intact [Mass/Vol] 79.7 pg/mL High 14.0 - 72.0 pg/mL [facility] URINALYSIS REFLEX TO CULTURE PERFORMABLEon 06-12-2022 Appearance (U) Clear Clear [facility] Bacteria LM Ql (Urine sed) ABSENT ABSENT [facility] Color (U) Yellow Yellow [facility] Epithelial cells.squamous LM Ql (Urine sed) 1/hpf = 1+ 1/hpf = 1+, 2-5/hpf = 2+, 0/hpf = 0+, ABSENT [facility] Glucose Test strip (U) [Mass/Vol] Negative Negative [facility] Interpretation and review of laboratory results Abnormal [facility] Ketones (U) [Mass/Vol] Trace Abnormal Negative [facility] Leukocyte esterase Test strip Ql (U) Small Abnormal Negative [facility] Nitrite Ql (U) Negative Negative [facility] pH (U) 5.5 [pH] 5.0 - 7.0 [facility] Protein (U) [Mass/Vol] 30 mg/dL Abnormal Negative [facility] RBC (U) [#/Vol] Trace Abnormal Negative [facility] RBC LM.HPF (Urine sed) [#/Area] 0-2 0 - 2 /HPF [facility] Specific gravity (U) [Rel density] 1.026 [facility] Urobilinogen (U) [Mass/Vol] 0.2 E.U./dL 0.2 E.U/dL, 1.0 E.U/dL [facility] WBC LM.HPF (Urine sed) [#/Area] 10-20 Abnormal 0 - 5 /HPF [facility] URINE PROTEIN/CREA RATIO, RA NDOMon 06-12-2022 Creatinine (24H U) [Mass/Vol] 231.68 mg/dL [facility] Protein Unsp time (U) [Mass/Vol] 49 mg/dL [facility] Protein/Creatinine (U) [Mass ratio] 0.211 mg/g [facility] FK506 (TACROLIMUS) WHOLE BLO ODon 06-09-2022 Tacrolimus (FK506), Blood 9.8 ng/mL Normal 2.0-20.0 [facility] Comment on above: Result Comment: Trou gh (immediately following transplant) 15.0 . Trough (steady state, 2 weeks or more after transplant): 3.0 - 8.0 . Performed by LC-MS/MS technology. Performed By: #### U RTPCR #### [facility] [address] [place] [address] Dr. Dwight Waters ALBUMINon 06-06-2022 Albumin [Mass/Vol] 3.8 g/dL Normal 3.4-5.0 [facility] Comment on above: Performed By: #### C MP #### [facility] [address] [address] [address] Dwight Waters ALKALINE PHOSPHAon ALP [Catalytic activity/Vol] 82 U/L Normal 46-116 [facility] Comment on above: Performed By: #### C MP #### [facility] [address] [place] [address] Dr. Dwight Waters BILIRUBIN CONJUGATED (DIRECT )on 06-06-2022 BILI, CONJUGATED 0.2 mg/dL Normal 0.0-0.2 [facility] Comment on above: Performed By: #### C BC #### [facility] [address] [place] [address] Dr. Dwight Waters BILIRUBIN TOTALon 06-06-2022 Bilirubin [Mass/Vol] 1.0 mg/dL Normal 0.2-1.0 [facility] Comment on above: Performed By: #### C BC #### [facility] [address] [place] [address] Dr. Dwight Waters BUNon 06-06-2022 Urea nitrogen [Mass/Vol] 18.0 mg/dL Normal 7.0-18.0 [facility] Comment on above: Performed By: #### C BC #### [facility] [address] [place] [address] Dr. Dwight Waters CALCIUMon 06-06-2022 Calcium [Mass/Vol] 9.4 mg/dL Normal 8.5-10.1 [facility] Comment on above: Performed By: #### C MP #### [facility] [address] [place] [address] Dr. Dwight Waters CBC AUTO DIFFon 06-06-2022 BASO # 0.1 103/ul Normal 0.0-0.1 [facility] Comment on above: Performed By: #### U RTPCR #### [facility] [address] [place] [address] Dr. Dwight Waters Basophils/100 WBC (Bld) 0.8 % Normal 0.2-2.0 [facility] Comment on above: Performed By: #### U RTPCR #### [facility] [address] [place] [address] Dr. Dwight Waters EO # 0.3 103/ul Normal 0.0-0.7 [facility] Comment on above: Performed By: #### U RTPCR #### [facility] [address] [place] [address] Dr. Dwight Waters Eosinophils/100 WBC (Bld) 3.3 % Normal 0.9-7.0 [facility] Comment on above: Performed By: #### U RTPCR #### [facility] [address] [place] [address] Dr. Dwight Waters Erythrocyte distribution width (RBC) [Ratio] 12.4 % Normal 11.0-15.0 [facility] Comment on above: Performed By: #### U RTPCR #### [facility] [address] [place] [address] Dr. Dwight Waters Hematocrit (Bld) [Volume fraction] 45.1 % Normal 42.0-54.0 [facility] Comment on above: Performed By: #### U RTPCR #### [facility] [address] [place] [address] Dr. Dwight Waters Hemoglobin (Bld) [Mass/Vol] 14.4 g/dL Normal 14.0-18.0 [facility] Comment on above: Performed By: #### U RTPCR #### [facility] [address] [place] [address] Dr. Dwight Waters IG # 0.01 10e3/ul Normal 0.00-0.03 [facility] Comment on above: Performed By: #### U RTPCR #### [facility] [address] [place] [address] Dr. Dwight Waters IG % 0.1 % Normal 0.0-0.5 [facility] Comment on above: Performed By: #### U RTPCR #### [facility] [address] [place] [address] Dr. Dwight Waters LYMPH # 2.2 103/ul Normal 1.2-3.8 [facility] Comment on above: Performed By: #### U RTPCR #### [facility] [address] [place] [address] Dr. Dwight Waters Lymphocytes/100 WBC (Bld) 30.0 % Normal 20.5-60.0 [facility] Comment on above: Performed By: #### U RTPCR #### [facility] [address] [place] [address] Dr. Dwight Waters MANUAL DIFF REQ NO Normal [facility] Comment on above: Performed By: #### U RTPCR #### [facility] [address] [place] [address] Dr. Dwight Waters MCH (RBC) [Entitic mass] 28.2 pg Normal 25.9-34.0 [facility] Comment on above: Performed By: #### U RTPCR #### [facility] [address] [place] [address] Dr. Dwight Waters MCHC (RBC) [Mass/Vol] 31.9 g/dL Normal 29.9-35.2 [facility] Comment on above: Performed By: #### U RTPCR #### [facility] [address] [place] [address] Dr. Dwight Waters MCV (RBC) [Entitic vol] 88.3 fL Normal 80.0-94.0 [facility] Comment on above: Performed By: #### U RTPCR #### [facility] [address] [place] [address] Dr. Dwight Waters MONO # 0.6 103/ul Normal 0.3-0.8 [facility] Comment on above: Performed By: #### U RTPCR #### [facility] [address] [place] [address] Dr. Dwight Waters Monocytes/100 WBC (Bld) 8.2 % Normal 1.7-12.0 [facility] Comment on above: Performed By: #### U RTPCR #### [facility] [address] [place] [address] Dr. Dwight Waters NEUT # 4.3 103/ul Normal 1.4-6.5 [facility] Comment on above: Performed By: #### U RTPCR #### [facility] [address] [place] [address] Dr. Dwight Waters Neutrophils/100 WBC (Bld) 57.6 % Normal 43.0-75.0 [facility] Comment on above: Performed By: #### U RTPCR #### [facility] [address] [place] [address] Dr. Dwight Waters Platelet mean volume (Bld) [Entitic vol] 9.7 fL Normal 9.5-13.5 [facility] Comment on above: Performed By: #### U RTPCR #### [facility] [address] [place] [address] Dr. Dwight Waters PLT 297 103/ul Normal 150-450 [facility] Comment on above: Performed By: #### U RTPCR #### [facility] [address] [place] [address] Dr. Dwight Waters RBC 5.11 106/ul Normal 4.70-6.10 [facility] Comment on above: Performed By: #### U RTPCR #### [facility] [address] [place] [address] Dr. Dwight Waters WBC 7.5 103/ul Normal 4.0-11.0 [facility] Comment on above: Performed By: #### U RTPCR #### [facility] [address] [place] [address] Dr. Dwight Waters CHLORIDEon 06-06-2022 Chloride [Moles/Vol] 107 mmol/L Normal 98-107 [facility] Comment on above: Performed By: #### C BC #### [facility] [address] [place] [address] Dr. Dwight Waters CO2on 06-06-2022 CO2 [Moles/Vol] 27.4 mmol/L Normal 21.0-32.0 [facility] Comment on above: Performed By: #### C BC #### [facility] [address] [place] [address] Dr. Dwight Waters CREATININEon 06-06-2022 Creatinine [Mass/Vol] 1.20 mg/dL Normal 0.70-1.30 [facility] Comment on above: Performed By: #### C BC #### [facility] [address] [place] [address] Dr. Dwight Waters EGFR-AF FINNISH >60 Normal >=60 [facility] Comment on above: Performed By: #### C BC #### [facility] [address] [place] [address] Dr. Dwight Waters EGFR-NON AF FINNISH >60 Normal >=60 [facility] Comment on above: Performed By: #### C BC #### [facility] [address] [place] [address] Dr. Dwight Waters GGTon 06-06-2022 Gamma glutamyl transferase [Catalytic activity/Vol] 29 U/L Normal 15-85 [facility] Comment on above: Performed By: #### C BC #### [facility] [address] [place] [address] Dr. Dwight Waters GLUCOSE BLOODon 06-06-2022 Glucose [Mass/Vol] 112 mg/dL Critically high 74-106 [facility] Comment on above: Performed By: #### C BC #### [facility] [address] [place] [address] Dr. Dwight Waters MAGNESIUMon 06-06-2022 Magnesium [Mass/Vol] 1.3 mg/dL Critically low 1.8-2.4 [facility] Comment on above: Performed By: #### C MP #### [facility] [address] [place] [address] Dr. Dwight Waters NAon 06-06-2022 Sodium [Moles/Vol] 141 mmol/L Normal 136-145 [facility] Comment on above: Performed By: #### C MP #### [facility] [address] [place] [address] Dr. Dwight Waters PHOSPHORUSon 06-06-2022 Phosphate [Mass/Vol] 3.1 mg/dL Normal 2.6-4.7 [facility] Comment on above: Performed By: #### C MP #### [facility] [address] [place] [address] Dr. Dwight Waters POTASSIUMon 06-06-2022 Potassium [Moles/Vol] 4.3 mmol/L Normal 3.5-5.1 [facility] Comment on above: Performed By: #### C BC #### [facility] [address] [place] [address] Dr. Dwight Waters SGOTon 06-06-2022 AST [Catalytic activity/Vol] 16 U/L Normal 15-37 [facility] Comment on above: Performed By: #### C BC #### [facility] [address] [place] [address] Dr. Dwight Waters SGPTon 06-06-2022 ALT [Catalytic activity/Vol] 50 U/L Normal 16-63 [facility] Comment on above: Performed By: #### C BC #### [facility] [address] [address] [address] Dwight Waters Bacteria identified Cx Nom ( Bld)on 05-21-2022 Bacteria identified Cx Nom (Unsp spec) NO GROWTH DAY 5 OF 5 [facility] Results may be compromised due to volume of BACT\ALERT bottle exceeding 10mLs . The optimal blood volume is 8-10 mls per aerobic/anaerobic blood culture bottle. [facility] CALCIUMon 05-20-2022 Calcium [Mass/Vol] 9.1 mg/dL 8.6 - 10. 5 mg/dL [facility] CBC,PLATELETSon 05-20-2022 Erythrocyte distribution width (RBC) [Ratio] 12.5 % 10.9 - 14.3 % [facility] Hematocrit (Bld) [Volume fraction] 37.1 % Low 39.6 - 48.8 % [facility] Hemoglobin (Bld) [Mass/Vol] 12.3 g/dL Low 13.4 - 16.8 g/dL [facility] Interpretation and review of laboratory results Abnormal [facility] MCH (RBC) [Entitic mass] 28.9 pg 26.1 - 33.3 pg [facility] MCHC (RBC) [Mass/Vol] 33.2 g/dL 31.9 - 36.5 g/dL [facility] MCV (RBC) [Entitic vol] 87.3 fL 79.0 - 94.5 fL [facility] Platelet mean volume (Bld) [Entitic vol] 9.9 fL 8.7 - 12.3 fL [facility] Platelets (Bld) [#/Vol] 234 10*3/uL 146 - 337 K/uL [facility] RBC (Bld) [#/Vol] 4.25 10*6/uL Low [facility] WBC (Bld) [#/Vol] 6.31 10*3/uL 3.73 - 10. 10 K/uL [facility] CHEM 7 (LYTES,BUN,CREA,GLUC) on 05-20-2022 Anion gap [Moles/Vol] 15 mmol/L 7 - 17 mmol/L [facility] Chloride [Moles/Vol] 111 mmol/L High 98 - 10 8 mmol/L [facility] CO2 [Moles/Vol] 22 mmol/L 21 - 31 mmol/L [facility] Creatinine [Mass/Vol] 1.10 mg/dL 0.70 - 1.30 mg/dL [facility] GFR/1.73 sq M.predicted CKD-EPI (S/P/Bld) [Vol rate/Area] 81 >=60 mL/min/1.73m2 [facility] Comment on above: Reported eGFR is bas ed on the CKD-EPI 2020 equation using creatinine, age, and sex. Glucose [Mass/Vol] 92 mg/dL 70 - 99 mg/dL [facility] Interpretation and review of laboratory results Abnormal [facility] Osmolality Calc [Osmolality] 302 [facility] Potassium [Moles/Vol] 4.4 mmol/L 3.5 - 5.0 mmol/L [facility] Sodium [Moles/Vol] 144 mmol/L 135 - 145 mmol/L [facility] Urea nitrogen [Mass/Vol] 18 mg/dL 7 - 25 mg/dL [facility] Urea nitrogen/Creatinine [Mass ratio] 16 mg/mg [facility] MAGNESIUMon 05-20-2022 Interpretation and review of laboratory results Abnormal [facility] Magnesium [Mass/Vol] 1.5 mg/dL Low 1.6 - 2 .6 mg/dL [facility] No Panel Informationon 05-20 Interpretation and review of laboratory results Normal [facility] PHOSPHATE, INORGANICon 05-20 Phosphate [Mass/Vol] 3.3 mg/dL 2.2 - 4 .6 mg/dL [facility] RF Unspecified body region V [...] projections of kidneys, ureters, and bladder. FINDINGS: [employer] images: [employer] radiographs of the abdomen reveal a nonobstructive [...] Contrast refluxes up the ureter to the council right kidney that is grossly normal appearing. [...] projections of kidneys, ureters, and bladder. FINDINGS: [employer]imator images: [employer] radiographs of the abdomen reveal a nonobstructive [...] Contrast refluxes up the ureter to the council right kidney that is grossly normal appearing. [...] reviewed and approved this report. [facility] Radiology Study observation (narrative) [facility] RF Unspecified body region V iews during surgeryOrdered By: Lizz Campos on 05-20-2022 [facility] Work Phone: CALCIUMon 05-19-2022 Calcium [Mass/Vol] 9.2 mg/dL 8.6 - 10. 5 mg/dL [facility] Calcium [Mass/Vol] 8.6 mg/dL 8.6 - 10. 5 mg/dL [facility] CBC,PLATELETSon 05-19-2022 Erythrocyte distribution width (RBC) [Ratio] 12.4 % 10.9 - 14.3 % [facility] Hematocrit (Bld) [Volume fraction] 38.0 % Low 39.6 - 48.8 % [facility] Hemoglobin (Bld) [Mass/Vol] 12.0 g/dL Low 13.4 - 16.8 g/dL [facility] Interpretation and review of laboratory results Abnormal [facility] MCH (RBC) [Entitic mass] 28.6 pg 26.1 - 33.3 pg [facility] MCHC (RBC) [Mass/Vol] 31.6 g/dL Low 31.9 - 36.5 g/dL [facility] MCV (RBC) [Entitic vol] 90.5 fL 79.0 - 94.5 fL [facility] Platelet mean volume (Bld) [Entitic vol] 9.7 fL 8.7 - 12.3 fL [facility] Platelets (Bld) [#/Vol] 199 10*3/uL 146 - 337 K/uL [facility] RBC (Bld) [#/Vol] 4.20 10*6/uL Low [facility] WBC (Bld) [#/Vol] 6.81 10*3/uL 3.73 - 10. 10 K/uL [facility] CHEM 7 (LYTES,BUN,CREA,GLUC) on 05-19-2022 Anion gap [Moles/Vol] 13 mmol/L 7 - 17 mmol/L [facility] Chloride [Moles/Vol] 105 mmol/L 98 - 10 8 mmol/L [facility] CO2 [Moles/Vol] 30 mmol/L 21 - 31 mmol/L [facility] Creatinine [Mass/Vol] 1.39 mg/dL High 0.70 - 1.30 mg/dL [facility] GFR/1.73 sq M.predicted CKD-EPI (S/P/Bld) [Vol rate/Area] 61 >=60 mL/min/1.73m2 [facility] Comment on above: Reported eGFR is bas ed on the CKD-EPI 2020 equation using creatinine, age, and sex. Glucose [Mass/Vol] 121 mg/dL High 70 - 99 mg/dL [facility] Interpretation and review of laboratory results Abnormal [facility] Osmolality Calc [Osmolality] 303 [facility] Potassium [Moles/Vol] 3.8 mmol/L 3.5 - 5.0 mmol/L [facility] Sodium [Moles/Vol] 144 mmol/L 135 - 145 mmol/L [facility] Urea nitrogen [Mass/Vol] 18 mg/dL 7 - 25 mg/dL [facility] Urea nitrogen/Creatinine [Mass ratio] 13 mg/mg [facility] Anion gap [Moles/Vol] 15 mmol/L 7 - 17 mmol/L [facility] Chloride [Moles/Vol] 106 mmol/L 98 - 10 8 mmol/L [facility] CO2 [Moles/Vol] 24 mmol/L 21 - 31 mmol/L [facility] Creatinine [Mass/Vol] 1.46 mg/dL High 0.70 - 1.30 mg/dL [facility] GFR/1.73 sq M.predicted CKD-EPI (S/P/Bld) [Vol rate/Area] 58 Low >=60 mL/min/1.73m2 [facility] Comment on above: Reported eGFR is bas ed on the CKD-EPI 2020 equation using creatinine, age, and sex. Glucose [Mass/Vol] 103 mg/dL High 70 - 99 mg/dL [facility] Interpretation and review of laboratory results Abnormal [facility] Osmolality Calc [Osmolality] 298 [facility] [facility] Potassium [Moles/Vol] 3.9 mmol/L 3.5 - 5.0 mmol/L [facility] Sodium [Moles/Vol] 141 mmol/L 135 - 145 mmol/L [facility] Urea nitrogen [Mass/Vol] 21 mg/dL 7 - 25 mg/dL [facility] Urea nitrogen/Creatinine [Mass ratio] 14 mg/mg [facility] MAGNESIUMon 05-19-2022 Magnesium [Mass/Vol] 2.0 mg/dL 1.6 - 2 .6 mg/dL [facility] Magnesium [Mass/Vol] 1.7 mg/dL 1.6 - 2 .6 mg/dL [facility] No Panel Informationon 05-19 Interpretation and review of laboratory results Normal [facility] Interpretation and review of laboratory results Normal [facility] PHOSPHATE, INORGANICon 05-19 Phosphate [Mass/Vol] 3.0 mg/dL 2.2 - 4 .6 mg/dL [facility] Phosphate [Mass/Vol] 2.7 mg/dL 2.2 - 4 .6 mg/dL [facility] CALCIUMon 05-18-2022 Calcium [Mass/Vol] 9.1 mg/dL 8.6 - 10. 5 mg/dL [facility] CBC,PLATELETSon 05-18-2022 Erythrocyte distribution width (RBC) [Ratio] 12.5 % 10.9 - 14.3 % [facility] Hematocrit (Bld) [Volume fraction] 37.3 % Low 39.6 - 48.8 % [facility] Hemoglobin (Bld) [Mass/Vol] 11.9 g/dL Low 13.4 - 16.8 g/dL [facility] Interpretation and review of laboratory results Abnormal [facility] MCH (RBC) [Entitic mass] 28.9 pg 26.1 - 33.3 pg [facility] MCHC (RBC) [Mass/Vol] 31.9 g/dL 31.9 - 36.5 g/dL [facility] MCV (RBC) [Entitic vol] 90.5 fL 79.0 - 94.5 fL [facility] Platelet mean volume (Bld) [Entitic vol] 10.1 fL 8.7 - 12.3 fL [facility] Platelets (Bld) [#/Vol] 189 10*3/uL 146 - 337 K/uL [facility] RBC (Bld) [#/Vol] 4.12 10*6/uL Low [facility] WBC (Bld) [#/Vol] 10.19 10*3/uL High 3.73 - 10 .10 K/uL [facility] CHEM 7 (LYTES,BUN,CREA,GLUC) on 05-18-2022 Anion gap [Moles/Vol] 13 mmol/L 7 - 17 mmol/L [facility] Chloride [Moles/Vol] 102 mmol/L 98 - 10 8 mmol/L [facility] CO2 [Moles/Vol] 26 mmol/L 21 - 31 mmol/L [facility] Creatinine [Mass/Vol] 1.91 mg/dL High 0.70 - 1.30 mg/dL [facility] GFR/1.73 sq M.predicted CKD-EPI (S/P/Bld) [Vol rate/Area] 42 Low >=60 mL/min/1.73m2 [facility] Comment on above: Reported eGFR is bas ed on the CKD-EPI 2020 equation using creatinine, age, and sex. Glucose [Mass/Vol] 158 mg/dL High 70 - 99 mg/dL [facility] Osmolality Calc [Osmolality] 297 [facility] Potassium [Moles/Vol] 4.0 mmol/L 3.5 - 5.0 mmol/L [facility] Sodium [Moles/Vol] 137 mmol/L 135 - 145 mmol/L [facility] Urea nitrogen [Mass/Vol] 30 mg/dL High 7 - 25 mg/dL [facility] Urea nitrogen/Creatinine [Mass ratio] 16 mg/mg [facility] CHEM 7 (LYTES,BUN,CREA,GLUC) Ordered By: Tamiko Thapa on 05-18-2022 Anion gap [Moles/Vol] 13 mmol/L 7 - 17 mmol/L [facility] Chloride [Moles/Vol] 104 mmol/L 98 - 10 8 mmol/L [facility] CO2 [Moles/Vol] 26 mmol/L 21 - 31 mmol/L [facility] Creatinine [Mass/Vol] 2.96 mg/dL High 0.70 - 1.30 mg/dL [facility] GFR/1.73 sq M.predicted CKD-EPI (S/P/Bld) [Vol rate/Area] 25 Low >=60 mL/min/1.73m2 [facility] Comment on above: Reported eGFR is bas ed on the CKD-EPI 2020 equation using creatinine, age, and sex. Glucose [Mass/Vol] 136 mg/dL High 70 - 99 mg/dL [facility] Interpretation and review of laboratory results Abnormal [facility] Osmolality Calc [Osmolality] 304 [facility] Potassium [Moles/Vol] 4.2 mmol/L 3.5 - 5.0 mmol/L [facility] Sodium [Moles/Vol] 139 mmol/L 135 - 145 mmol/L [facility] Urea nitrogen [Mass/Vol] 41 mg/dL High 7 - 25 mg/dL [facility] Urea nitrogen/Creatinine [Mass ratio] 14 mg/mg [facility] MAGNESIUMon 05-18-2022 Magnesium [Mass/Vol] 2.2 mg/dL 1.6 - 2 .6 mg/dL [facility] Interpretation and review of laboratory results Normal [facility] Magnesium [Mass/Vol] 1.7 mg/dL 1.6 - 2 .6 mg/dL [facility] No Panel Informationon 05-18 Interpretation and review of laboratory results Abnormal [facility] Interpretation and review of laboratory results Normal [facility] PHOSPHATE, INORGANICon 05-18 Phosphate [Mass/Vol] 2.0 mg/dL Low 2.2 - 4 .6 mg/dL [facility] Interpretation and review of laboratory results Normal [facility] Phosphate [Mass/Vol] 2.8 mg/dL 2.2 - 4 .6 mg/dL [facility] PT,INR,PTTon 05-18-2022 aPTT Coag (PPP) [Time] 31.0 s [facility] INR Coag (Bld) [Relative time] 1.1 {INR} [facility] Interpretation and review of laboratory results Abnormal [facility] PT Coag (PPP) [Time] 14.4 s High [facility] URINE CULTUREOrdered By: Sylvia Campos on 05-18-2022 Bacteria identified Cx Nom (Unsp spec) No Growth [facility] CBC,PLATELETSon 05-17-2022 Erythrocyte distribution width (RBC) [Ratio] 12.8 % 10.9 - 14.3 % [facility] Hematocrit (Bld) [Volume fraction] 42.8 % 39.6 - 48.8 % [facility] Hemoglobin (Bld) [Mass/Vol] 13.3 g/dL Low 13.4 - 16.8 g/dL [facility] Interpretation and review of laboratory results Abnormal [facility] MCH (RBC) [Entitic mass] 28.9 pg 26.1 - 33.3 pg [facility] MCHC (RBC) [Mass/Vol] 31.1 g/dL Low 31.9 - 36.5 g/dL [facility] MCV (RBC) [Entitic vol] 92.8 fL 79.0 - 94.5 fL [facility] Platelet mean volume (Bld) [Entitic vol] 10.3 fL 8.7 - 12.3 fL [facility] Platelets (Bld) [#/Vol] 188 10*3/uL 146 - 337 K/uL [facility] RBC (Bld) [#/Vol] 4.61 10*6/uL [facility] WBC (Bld) [#/Vol] 16.61 10*3/uL High 3.73 - 10 .10 K/uL [facility] CHEM 7 (LYTES,BUN,CREA,GLUC) Ordered By: Kaylah Mc on 05-17-2022 Anion gap [Moles/Vol] 15 mmol/L 7 - 17 mmol/L [facility] Chloride [Moles/Vol] 103 mmol/L 98 - 10 8 mmol/L [facility] CO2 [Moles/Vol] 23 mmol/L 21 - 31 mmol/L [facility] Creatinine [Mass/Vol] 5.95 mg/dL High 0.70 - 1.30 mg/dL [facility] GFR/1.73 sq M.predicted CKD-EPI (S/P/Bld) [Vol rate/Area] 11 Low >=60 mL/min/1.73m2 [facility] Comment on above: Reported eGFR is bas ed on the CKD-EPI 2020 equation using creatinine, age, and sex. Glucose [Mass/Vol] 165 mg/dL High 70 - 99 mg/dL [facility] Interpretation and review of laboratory results Abnormal [facility] Osmolality Calc [Osmolality] 305 [facility] Potassium [Moles/Vol] 4.6 mmol/L 3.5 - 5.0 mmol/L [facility] Sodium [Moles/Vol] 136 mmol/L 135 - 145 mmol/L [facility] Urea nitrogen [Mass/Vol] 52 mg/dL High 7 - 25 mg/dL [facility] Urea nitrogen/Creatinine [Mass ratio] 9 mg/mg [facility] CHEM 7 (LYTES,BUN,CREA,GLUC) Ordered By: Kehinde Gutierrez on 05-17-2022 Anion gap [Moles/Vol] 24 mmol/L High 7 - 17 mmol/L [facility] Chloride [Moles/Vol] 100 mmol/L 98 - 10 8 mmol/L [facility] CO2 [Moles/Vol] 16 mmol/L Low 21 - 31 mmol/L [facility] Creatinine [Mass/Vol] 8.08 mg/dL High 0.70 - 1.30 mg/dL [facility] GFR/1.73 sq M.predicted CKD-EPI (S/P/Bld) [Vol rate/Area] 7 Low >=60 mL/min/1.73m2 [facility] Comment on above: Reported eGFR is bas ed on the CKD-EPI 1 equation using creatinine, age, and sex. Glucose [Mass/Vol] 164 mg/dL High 70 - 99 mg/dL [facility] Interpretation and review of laboratory results Abnormal [facility] Osmolality Calc [Osmolality] 305 [facility] Potassium [Moles/Vol] 5.0 mmol/L 3.5 - 5.0 mmol/L [facility] Sodium [Moles/Vol] 135 mmol/L 135 - 145 mmol/L [facility] Urea nitrogen [Mass/Vol] 56 mg/dL High 7 - 25 mg/dL [facility] Urea nitrogen/Creatinine [Mass ratio] 7 mg/mg [facility] LAVENDER TOP TUBEon 05-17-20 [facility] MAGNESIUMon 05-17-2022 Interpretation and review of laboratory results Normal [facility] Magnesium [Mass/Vol] 1.8 mg/dL 1.6 - 2 .6 mg/dL [facility] Interpretation and review of laboratory results Normal [facility] Magnesium [Mass/Vol] 1.6 mg/dL 1.6 - 2 .6 mg/dL [facility] No Panel Informationon 05-17 [facility] PHOSPHATE, INORGANICon 05-17 Interpretation and review of laboratory results Abnormal [facility] Phosphate [Mass/Vol] 4.9 mg/dL High 2.2 - 4 .6 mg/dL [facility] PT,INR,PTTon 05-17-2022 aPTT Coag (PPP) [Time] 33.0 s [facility] INR Coag (Bld) [Relative time] 1.3 {INR} High [facility] Interpretation and review of laboratory results Abnormal [facility] PT Coag (PPP) [Time] 15.7 s High [facility] Portable XR Chest Viewson IMPRESSION: No [...] IMPRESSION IMPRESSION: No acute findings. [facility] Radiology Study observation (narrative) [facility] Portable XR Chest ViewsOrder ed By: Raheem Sanz on 05-17-2022 [facility] Work Phone: URINALYSISOrdered By: Michael patel Ma on 05-17-2022 Appearance (U) Cloudy Abnormal Clear [facility] Comment on above: Results may be inacc urate due to color interference. Clinical correlation recommended. Bacteria LM Ql (Urine sed) ABSENT ABSENT [facility] Color (U) Red Abnormal Yellow [facility] Comment on above: Results may be inacc urate due to color interference. Clinical correlation recommended. Epithelial cells.squamous LM Ql (Urine sed) ABSENT 1/hpf = 1+, 2-5/hpf = 2+, 0/hpf = 0+, ABSENT [facility] Glucose Test strip (U) [Mass/Vol] Negative Negative [facility] Comment on above: Results may be inacc urate due to color interference. Clinical correlation recommended. Interpretation and review of laboratory results Abnormal [facility] Ketones (U) [Mass/Vol] Trace Abnormal Negative [facility] Comment on above: Results may be inacc urate due to color interference. Clinical correlation recommended. Leukocyte esterase Test strip Ql (U) Large Abnormal Negative [facility] Comment on above: Results may be inacc urate due to color interference. Clinical correlation recommended. Nitrite Ql (U) Negative Negative [facility] Comment on above: Results may be inacc urate due to color interference. Clinical correlation recommended. pH (U) 5.0 [pH] 5.0 - 7.0 [facility] Comment on above: Results may be inacc urate due to color interference. Clinical correlation recommended. Protein (U) [Mass/Vol] mg/dL Abnormal Negative [facility] Comment on above: Results may be inacc urate due to color interference. Clinical correlation recommended. RBC (U) [#/Vol] Large Abnormal Negative [facility] Comment on above: Results may be inacc urate due to color interference. Clinical correlation recommended. RBC LM.HPF (Urine sed) [#/Area] /[HPF] Abnormal 0 - 2 /HPF [facility] Specific gravity (U) [Rel density] 1.016 [facility] Comment on above: Results may be inacc urate due to color interference. Clinical correlation recommended. Urobilinogen (U) [Mass/Vol] 0.2 E.U./dL 0.2 E.U/dL, 1.0 E.U/dL [facility] Comment on above: Results may be inacc urate due to color interference. Clinical correlation recommended. WBC LM.HPF (Urine sed) [#/Area] /[HPF] Abnormal 0 - 5 /HPF [facility] URINE CULTUREOrdered By: Tyler Tiwari on 05-17-2022 Bacteria identified Cx Nom (Unsp spec) No Growth [facility] CBC,PLATELETSon 05-16-2022 Erythrocyte distribution width (RBC) [Ratio] 12.9 % 10.9 - 14.3 % [facility] Hematocrit (Bld) [Volume fraction] 46.5 % 39.6 - 48.8 % [facility] Hemoglobin (Bld) [Mass/Vol] 14.7 g/dL 13.4 - 16.8 g/dL [facility] Interpretation and review of laboratory results Abnormal [facility] MCH (RBC) [Entitic mass] 28.3 pg 26.1 - 33.3 pg [facility] MCHC (RBC) [Mass/Vol] 31.6 g/dL Low 31.9 - 36.5 g/dL [facility] MCV (RBC) [Entitic vol] 89.6 fL 79.0 - 94.5 fL [facility] Platelet mean volume (Bld) [Entitic vol] 10.3 fL 8.7 - 12.3 fL [facility] Platelets (Bld) [#/Vol] 188 10*3/uL 146 - 337 K/uL [facility] RBC (Bld) [#/Vol] 5.19 10*6/uL [facility] WBC (Bld) [#/Vol] 12.55 10*3/uL High 3.73 - 10 .10 K/uL [facility] CHEM 7 (LYTES,BUN,CREA,GLUC) Ordered By: Alma Pena on 05-16-2022 Anion gap [Moles/Vol] 14 mmol/L 7 - 17 mmol/L [facility] Chloride [Moles/Vol] 103 mmol/L 98 - 10 8 mmol/L [facility] CO2 [Moles/Vol] 22 mmol/L 21 - 31 mmol/L [facility] Creatinine [Mass/Vol] 6.09 mg/dL High 0.70 - 1.30 mg/dL [facility] GFR/1.73 sq M.predicted CKD-EPI (S/P/Bld) [Vol rate/Area] 10 Low >=60 mL/min/1.73m2 [facility] Comment on above: Reported eGFR is bas ed on the CKD-EPI 2020 equation using creatinine, age, and sex. Glucose [Mass/Vol] 134 mg/dL High 70 - 99 mg/dL [facility] Interpretation and review of laboratory results Abnormal [facility] Osmolality Calc [Osmolality] 298 [facility] Potassium [Moles/Vol] 4.9 mmol/L 3.5 - 5.0 mmol/L [facility] Sodium [Moles/Vol] 134 mmol/L Low 135 - 145 mmol/L [facility] Comment on above: Results inconsistent with previous results Urea nitrogen [Mass/Vol] 49 mg/dL High 7 - 25 mg/dL [facility] Urea nitrogen/Creatinine [Mass ratio] 8 mg/mg [facility] CHEM 7 (LYTES,BUN,CREA,GLUC) on 05-16-2022 Anion gap [Moles/Vol] 17 mmol/L 7 - 17 mmol/L [facility] Chloride [Moles/Vol] 106 mmol/L 98 - 10 8 mmol/L [facility] CO2 [Moles/Vol] 22 mmol/L 21 - 31 mmol/L [facility] Creatinine [Mass/Vol] 5.23 mg/dL High 0.70 - 1.30 mg/dL [facility] GFR/1.73 sq M.predicted CKD-EPI (S/P/Bld) [Vol rate/Area] 13 Low >=60 mL/min/1.73m2 [facility] Comment on above: Reported eGFR is bas ed on the CKD-EPI 2020 equation using creatinine, age, and sex. Glucose [Mass/Vol] 116 mg/dL High 70 - 99 mg/dL [facility] Interpretation and review of laboratory results Abnormal [facility] Osmolality Calc [Osmolality] 305 [facility] Potassium [Moles/Vol] 4.6 mmol/L 3.5 - 5.0 mmol/L [facility] Sodium [Moles/Vol] 140 mmol/L 135 - 145 mmol/L [facility] Urea nitrogen [Mass/Vol] 42 mg/dL High 7 - 25 mg/dL [facility] Urea nitrogen/Creatinine [Mass ratio] 8 mg/mg [facility] EXTRA MICROon 05-16-2022 [facility] LT BLUE TOP TUBEon 2 [facility] LYTES (NA, K, CL) - URINE - RANDOMon 05-16-2022 Chloride (24H U) [Moles/Vol] 68 mmol/L [facility] Potassium (24H U) [Moles/Vol] 36.7 mmol/L [facility] Sodium (24H U) [Moles/Vol] 55 mmol/L [facility] The reference range has not been established for random urine specimens. The test result should be integrated into the clinical context for interpretation. [facility] MAGNESIUMon 05-16-2022 Interpretation and review of laboratory results Normal [facility] Magnesium [Mass/Vol] 1.7 mg/dL 1.6 - 2 .6 mg/dL [facility] NOVEL CORONAVIRUS PCROrdered By: Edson Candelario on 05-16-2022 SARS-CoV-2 (COVID-19) RNA ESTELITA+probe Ql (Unsp spec) Not detected NOT DETECTED [facility] Comment on above: [facility] [...] for use by authorized laboratories. [facility] No Panel Informationon 05-16 [facility] OSMOLALITY, URINEon 05-16-20 Interpretation and review of laboratory results Normal [facility] Osmolality (U) [Osmolality] 320 mosm/kg [facility] The reference range has not been established for random urine specimens. The test result should be integrated into the clinical context for interpretation. [facility] PROCALCITONINon 05-16-2022 Interpretation and review of laboratory results Normal [facility] Procalcitonin [Mass/Vol] 0.18 ng/mL <0.50 [facility] Comment on above: Procalcitonin is [...] and trend procalcitonin in various clinical settings. [email or web address] Two common cutoffs associated with bacterial infections are as follows. Respiratory tract infections: >0.25 ng/mL Sepsis/septic shock: >0.5 ng/mL Procalcitonin should not be used alone as a diagnostic tool, however. All procalcitonin results should be interpreted in association with the patients clinical condition and all laboratory findings. [facility] PT,INR,PTTon 05-16-2022 aPTT Coag (PPP) [Time] 30.3 s [facility] INR Coag (Bld) [Relative time] 1.1 {INR} [facility] Interpretation and review of laboratory results Normal [facility] PT Coag (PPP) [Time] 14.1 s [facility] SARS-CoV-2 (COVID-19) RNA NA A+probe Ql (Unsp spec)Ordered By: Edson Candelario on 05-16-2022 Interpretation and review of laboratory results Normal [facility] TACROLIMUS LEVEL, TROUGH (IN E DRUG LEVEL)Ordered By: Mariama Nick on 05-16-2022 Interpretation and review of laboratory results Normal [facility] Tacrolimus (Bld) [Mass/Vol] 4.1 ng/mL Bone Marrow Transplant: 4.0-12.0, Therapeutic: 5.0-15.0 [facility] Method performed is a chemiluminescent microparticle immunoasssay on the VEEDIMS i2000. The range is based on experience at [facility] and users should be aware that target concentrations vary widely depending on concomitant therapy, time post-transplant, and desired degree of immunosuppression. [facility] URINE PROTEIN/CREA RATIO, RA Smiley 05-16-2022 Creatinine (24H U) [Mass/Vol] 59.82 mg/dL [facility] Protein Unsp time (U) [Mass/Vol] 111 mg/dL [facility] Protein/Creatinine (U) [Mass ratio] 1.856 mg/g [facility] US for transplanted kidney amber sánchez 05-16-2022 [...] flow in the transplant kidney. [facility] Radiology Study observation (narrative) [facility] US for transplanted kidney l imitedOrdered By: Rosendo Matute on 05-16-2022 [facility] Work Phone: CBC AND ELECTRONIC DIFFon Basophils (Bld) [#/Vol] 10*3/uL 0.00 - 0.09 K/uL [facility] Basophils/100 WBC (Bld) 0.2 % [facility] Differential cell count method Nom (Bld) Electronic Differential [facility] Eosinophils (Bld) [#/Vol] 10*3/uL 0.00 - 0.48 K/uL [facility] Eosinophils/100 WBC (Bld) 0.0 % [facility] Erythrocyte distribution width (RBC) [Ratio] 12.8 % 10.9 - 14.3 % [facility] Hematocrit (Bld) [Volume fraction] 46.0 % 39.6 - 48.8 % [facility] Hemoglobin (Bld) [Mass/Vol] 14.6 g/dL 13.4 - 16.8 g/dL [facility] Immature granulocytes (Bld) [#/Vol] 0.07 10*3/uL <=0.08 [facility] Immature granulocytes/100 WBC (Bld) 0.4 % [facility] Interpretation and review of laboratory results Abnormal [facility] Lymphocytes (Bld) [#/Vol] 1.49 10*3/uL 0.83 - 3.57 K/uL [facility] Lymphocytes/100 WBC (Bld) 9.4 % [facility] MCH (RBC) [Entitic mass] 28.2 pg 26.1 - 33.3 pg [facility] MCHC (RBC) [Mass/Vol] 31.7 g/dL Low 31.9 - 36.5 g/dL [facility] MCV (RBC) [Entitic vol] 89.0 fL 79.0 - 94.5 fL [facility] Monocytes (Bld) [#/Vol] 1.45 10*3/uL High 0.24 - 0.93 K/uL [facility] Monocytes/100 WBC (Bld) 9.2 % [facility] Neutrophils (Bld) [#/Vol] 12.77 10*3/uL High 1.57 - 6.19 K/uL [facility] Nucleated RBC/100 WBC (Bld) [Ratio] 0.0 % <=0.2 /100 WBC [facility] Platelet mean volume (Bld) [Entitic vol] 9.9 fL 8.7 - 12.3 fL [facility] Platelets (Bld) [#/Vol] 250 10*3/uL 146 - 337 K/uL [facility] RBC (Bld) [#/Vol] 5.17 10*6/uL [facility] Segmented neutrophils/100 WBC (Bld) 80.8 % [facility] WBC (Bld) [#/Vol] 15.81 10*3/uL High 3.73 - 10 .10 K/uL [facility] CBC AUTO DIFFon 05-15-2022 BASO # 0.0 103/ul Normal 0.0-0.1 [facility] Comment on above: Performed By: #### C BC #### [facility] [address] [place] [address] Dr. Dwight Waters Basophils/100 WBC (Bld) 0.3 % Normal 0.2-2.0 [facility] Comment on above: Performed By: #### C BC #### [facility] [address] [place] [address] Dr. Dwight Waters EO # 0.1 103/ul Normal 0.0-0.7 [facility] Comment on above: Performed By: #### C BC #### [facility] [address] [place] [address] Dr. Dwight Waters Eosinophils/100 WBC (Bld) 0.8 % Critically low 0.9-7.0 [facility] Comment on above: Performed By: #### C BC #### [facility] [address] [place] [address] Dr. Dwight Waters Erythrocyte distribution width (RBC) [Ratio] 12.7 % Normal 11.0-15.0 [facility] [facility] Comment on above: Performed By: #### C BC #### [facility] [address] [place] [address] Dr. Dwight Waters Hematocrit (Bld) [Volume fraction] 43.5 % Normal 42.0-54.0 [facility] Comment on above: Performed By: #### C BC #### [facility] [address] [place] [address] Dr. Dwight Waters Hemoglobin (Bld) [Mass/Vol] 14.4 g/dL Normal 14.0-18.0 [facility] Comment on above: Performed By: #### C BC #### [facility] [address] [place] [address] Dr. Dwight Waters IG # 0.02 10e3/ul Normal 0.00-0.03 [facility] Comment on above: Performed By: #### C BC #### [facility] [address] [place] [address] Dr. Dwight Waters IG % 0.2 % Normal 0.0-0.5 [facility] Comment on above: Performed By: #### C BC #### [facility] [address] [place] [address] Dr. Dwight Waters LYMPH # 1.5 103/ul Normal 1.2-3.8 [facility] Comment on above: Performed By: #### C BC #### [facility] [address] [place] [address] Dr. Dwight Waters Lymphocytes/100 WBC (Bld) 12.5 % Critically low 20.5-60.0 [facility] Comment on above: Performed By: #### C BC #### [facility] [address] [place] [address] Dr. Dwight Waters MANUAL DIFF REQ NO Normal [facility] Comment on above: Performed By: #### C BC #### [facility] [address] [place] [address] Dr. Dwight Waters MCH (RBC) [Entitic mass] 28.6 pg Normal 25.9-34.0 [facility] Comment on above: Performed By: #### C BC #### [facility] [address] [address] [address] Dwight Waters MCHC (RBC) [Mass/Vol] 33.1 g/dL Normal 29.9-35.2 [facility] Comment on above: Performed By: #### C BC #### [facility] [address] [place] [address] Dr. Dwight Waters MCV (RBC) [Entitic vol] 86.3 fL Normal 80.0-94.0 [facility] Comment on above: Performed By: #### C BC #### [facility] [address] [place] [address] Dr. Dwight Waters MONO # 1.0 103/ul Critically high 0.3-0.8 [facility] Comment on above: Performed By: #### C BC #### [facility] [address] [place] [address] Dr. Dwight Waters Monocytes/100 WBC (Bld) 8.2 % Normal 1.7-12.0 [facility] Comment on above: Performed By: #### C BC #### [facility] [address] [place] [address] Dr. Dwight Waters NEUT # 9.1 103/ul Critically high 1.4-6.5 [facility] Comment on above: Performed By: #### C BC #### [facility] [address] [place] [address] Dr. Dwight Waters Neutrophils/100 WBC (Bld) 78.0 % Critically high 43.0-75.0 [facility] Comment on above: Performed By: #### C BC #### [facility] [address] [place] [address] Dr. Dwight Waters Platelet mean volume (Bld) [Entitic vol] 9.8 fL Normal 9.5-13.5 [facility] Comment on above: Performed By: #### C BC #### [facility] [address] [place] [address] Dr. Dwight Waters PLT 251 103/ul Normal 150-450 [facility] Comment on above: Performed By: #### C BC #### [facility] [address], [place] [address] Dr. Dwight Waters RBC 5.04 106/ul Normal 4.70-6.10 [facility] Comment on above: Performed By: #### C BC #### [facility] [address], [place] [address] Dr. Dwight Waters WBC 11.6 103/ul Critically high 4.0-11.0 [facility] Comment on above: Performed By: #### C BC #### [facility] [address], [place] [address] Dr. Dwight Waters CHEM 6 (LYTES, BUN CREA)on 0 05-15-2022 Anion gap [Moles/Vol] 12 mmol/L 7 - 17 mmol/L [facility] Chloride [Moles/Vol] 105 mmol/L 98 - 10 8 mmol/L [facility] CO2 [Moles/Vol] 26 mmol/L 21 - 31 mmol/L [facility] Creatinine [Mass/Vol] 2.85 mg/dL High 0.70 - 1.30 mg/dL [facility] GFR/1.73 sq M.predicted CKD-EPI (S/P/Bld) [Vol rate/Area] 26 Low >=60 mL/min/1.73m2 [facility] Comment on above: Reported eGFR is bas ed on the CKD-EPI 2020 equation using creatinine, age, and sex. Potassium [Moles/Vol] 4.6 mmol/L 3.5 - 5.0 mmol/L [facility] Sodium [Moles/Vol] 138 mmol/L 135 - 145 mmol/L [facility] Urea nitrogen [Mass/Vol] 32 mg/dL High 7 - 25 mg/dL [facility] Urea nitrogen/Creatinine [Mass ratio] 11 mg/mg [facility] CT ABD/PELVIS WO CONon 05-15 [...] transplanted kidney with moderate right-sided hydronephrosis. Atrophic council kidneys with moderate right-sided hydronephrosis. Multiple nonobstructive [...] transplanted kidney with moderate right-sided hydronephrosis. Atrophic council kidneys with moderate right-sided hydronephrosis. Multiple nonobstructive right renal calculi measuring up to 8 mm. FOLLOW-UP: Follow-up as clinically indicated. Electronically authenticated by: LYNDSAY JEAN Date: 2022-05-15 05:04 Normal [facility] Covid-19 PCR (CVDTB)on 04-30 SARS-CoV-2 (COVID-19) RNA ESTELITA+probe Ql (Unsp spec) Not detected Normal NOT DETECTED [facility] Comment on above: Result Comment: When diagnostic [...] for this test is supported by the Embedded Systems Designer of Health and Human Service's declaration that [...] Performed By: #### U RTPCR #### [facility] [address] [address] [address] Dwight Waters GLUCOSEon 05-15-2022 Glucose [Mass/Vol] 141 mg/dL High 70 - 99 mg/dL [facility] GOLD TOP TUBEon 05-15-2022 [facility] HEPATIC FUNCTION PANELon Albumin [Mass/Vol] 4.3 g/dL 3.5 - 5.0 g/dL [facility] ALP [Catalytic activity/Vol] 85 U/L 32 - 126 U/L [facility] ALT [Catalytic activity/Vol] 13 U/L 10 - 52 U/L [facility] AST [Catalytic activity/Vol] 15 U/L 10 - 39 U/L [facility] Bilirubin [Mass/Vol] 0.8 mg/dL <1.5 [facility] Bilirubin.direct [Mass/Vol] 0.2 mg/dL <0.3 [facility] Interpretation and review of laboratory results Normal [facility] Protein [Mass/Vol] 7.3 g/dL 6.4 - 8.3 g/dL [facility] LIPASEon 05-15-2022 Lipase [Catalytic activity/Vol] 8 U/L Low 11 - 82 U/L [facility] No Panel Informationon 05-15 Interpretation and review of laboratory results Abnormal [facility] PROF 14(COMP METB)on 022 Albumin [Mass/Vol] 3.8 g/dL Normal 3.4-5.0 [facility] Comment on above: Performed By: #### U RTPCR #### [facility] [address] [address] [address] Dwight Waters Albumin/Globulin [Mass ratio] 1.1 {ratio} Normal [facility] Comment on above: Performed By: #### U RTPCR #### [facility] [address] [address] [address] Dwight Waters ALP [Catalytic activity/Vol] 92 U/L Normal 46-116 [facility] Comment on above: Performed By: #### U RTPCR #### [facility] [address] [address] [address] Dwight Waters ALT [Catalytic activity/Vol] 25 U/L Normal 16-63 [facility] Comment on above: Performed By: #### U RTPCR #### [facility] [address] [address] [address] Dwight Waters Anion gap [Moles/Vol] 14.6 mmol/L Normal [facility] Comment on above: Performed By: #### U RTPCR #### [facility] [address] [address] [address] Dwight Waters AST [Catalytic activity/Vol] 17 U/L Normal 15-37 [facility] Comment on above: Performed By: #### U RTPCR #### [facility] [address] [address] [address] Dwight Waters Bilirubin [Mass/Vol] 0.6 mg/dL Normal 0.2-1.0 [facility] Comment on above: Performed By: #### U RTPCR #### [facility] [address] [address] [address] Dwight Waters Calcium [Mass/Vol] 9.9 mg/dL Normal 8.5-10.1 [facility] Comment on above: Performed By: #### U RTPCR #### [facility] [address] [address] [address] Dwight Waters Chloride [Moles/Vol] 106 mmol/L Normal 98-107 [facility] Comment on above: Performed By: #### U RTPCR #### [facility] [address] [address] [address] Dwight Waters CO2 [Moles/Vol] 24.2 mmol/L Normal 21.0-32.0 [facility] Comment on above: Performed By: #### U RTPCR #### [facility] [address] [address] [address] Dwight Waters Creatinine [Mass/Vol] 1.58 mg/dL Critically high 0.70-1.30 [facility] Comment on above: Performed By: #### U RTPCR #### [facility] [address] [address] [address] Dwight Waters EGFR-AF FINNISH 56 mL/min/1.73m2 Critically low >=60 [facility] Comment on above: Performed By: #### U RTPCR #### [facility] [address] [address] [address] Dwight Waters EGFR-NON AF FINNISH 46 mL/min/1.73m2 Critically low >=60 [facility] Comment on above: Performed By: #### U RTPCR #### [facility] [address] [address] [address] Dwight Waters Globulin (S) [Mass/Vol] 3.5 g/dL Normal [facility] Comment on above: Performed By: #### U RTPCR #### [facility] [address] [address] [address] Dwight Waters Glucose [Mass/Vol] 162 mg/dL Critically high 74-106 [facility] Comment on above: Performed By: #### U RTPCR #### [facility] [address] [address] [address] Dwight Waters Potassium [Moles/Vol] 3.8 mmol/L Normal 3.5-5.1 [facility] Comment on above: Performed By: #### U RTPCR #### [facility] [address] [address] [address] Dwight Waters Protein [Mass/Vol] 7.3 g/dL Normal 6.4-8.2 [facility] Comment on above: Performed By: #### U RTPCR #### [facility] [address] [address] [address] Dwight Waters Sodium [Moles/Vol] 141 mmol/L Normal 136-145 [facility] Comment on above: Performed By: #### U RTPCR #### [facility] [address], [place] [address] Dr. Dwight Waters Urea nitrogen [Mass/Vol] 22.0 mg/dL Critically high 7.0-18.0 [facility] Comment on above: Performed By: #### U RTPCR #### [facility] [address], [place] [address] Dr. Dwight Waters Urea nitrogen/Creatinine [Mass ratio] 13.9 mg/mg Normal [facility] Comment on above: Performed By: #### U RTPCR #### [facility] [address], [place] [address] Dr. Dwight Waters Portable XR Chest Viewson [...] IMPRESSION: No acute cardiopulmonary disease [facility] Radiology Study observation (narrative) [facility] Portable XR Chest ViewsOrder ed By: Vladislav Omer on 05-15-2022 [facility] URINE DIPSTICK; REFLEX MICRO SCOPY; REFLEX CULTURE PERFORMABLEon 05-15-2022 Appearance (U) Clear Clear [facility] Color (U) Yellow Yellow [facility] Glucose Test strip (U) [Mass/Vol] 100 mg/dL Abnormal Negative [facility] Interpretation and review of laboratory results Abnormal [facility] Ketones (U) [Mass/Vol] Negative Negative [facility] Leukocyte esterase Test strip Ql (U) Large Abnormal Negative [facility] Nitrite Ql (U) Negative Negative [facility] pH (U) 6.0 [pH] 5.0 - 7.0 [facility] Protein (U) [Mass/Vol] 100 mg/dL Abnormal Negative [facility] RBC (U) [#/Vol] Large Abnormal Negative [facility] Specific gravity (U) [Rel density] 1.010 [facility] Urobilinogen (U) [Mass/Vol] 0.2 E.U./dL 0.2 E.U/dL, 1.0 E.U/dL [facility] URINE MICROSCOPIC WITH REFLE X TO CULTUREOrdered By: Rey Bro on 05-15-2022 Bacteria LM Ql (Urine sed) ABSENT ABSENT [facility] Epithelial cells.squamous LM Ql (Urine sed) ABSENT 1/hpf = 1+, 2-5/hpf = 2+, 0/hpf = 0+, ABSENT [facility] Interpretation and review of laboratory results Abnormal [facility] RBC LM.HPF (Urine sed) [#/Area] /[HPF] Abnormal 0 - 2 /HPF [facility] WBC LM.HPF (Urine sed) [#/Area] 10-20 Abnormal 0 - 5 /HPF [facility] CT ABD/PELVIS WO CONon 05-12 CT ABD/PELVIS WO CON Begin Addendum #[address] Lund 3:25 PM EST 05/11/2022. Begin Addendum #2 IMPRESSION below should also contain the followin. 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 The council kidneys are progressively atrophic bilaterally compared to [...] of 06/14/2020 are no longer present. The council distal right ureter is decompressed beyond this [...] with surgical history for renal graft and council right urinary drainage, as a discrete ureteroneocystostomy is not identified, and the graft may be draining via a ureteroureterostomy. Urology consultation recommended. 3. The council kidneys are bilaterally atrophic, with right renal sinus calcifications consistent with nonobstructing right council renal calculi up to 6 mm. Normal [facility] CBC AUTO DIFFon 05-11-2022 BASO # 0.1 103/ul Normal 0.0-0.1 [facility] Comment on above: Performed By: #### U RTPCR #### [facility] [address] [address] [address] Dwight Waters Basophils/100 WBC (Bld) 0.8 % Normal 0.2-2.0 [facility] Comment on above: Performed By: #### U RTPCR #### [facility] [address] [address] [address] Dwight Waters EO # 0.2 103/ul Normal 0.0-0.7 [facility] Comment on above: Performed By: #### U RTPCR #### [facility] [address] [address] [address] Dwight Waters Eosinophils/100 WBC (Bld) 2.5 % Normal 0.9-7.0 [facility] Comment on above: Performed By: #### U RTPCR #### [facility] [address] [address] [address] Dwight Waters Erythrocyte distribution width (RBC) [Ratio] 12.5 % Normal 11.0-15.0 [facility] Comment on above: Performed By: #### U RTPCR #### [facility] [address] [address] [address] Dwight Waters Hematocrit (Bld) [Volume fraction] 48.3 % Normal 42.0-54.0 [facility] Comment on above: Performed By: #### U RTPCR #### [facility] [address] [address] [address] Dwight Waters Hemoglobin (Bld) [Mass/Vol] 15.3 g/dL Normal 14.0-18.0 [facility] Comment on above: Performed By: #### U RTPCR #### [facility] [address] [address] [address] Dwight Waters IG # 0.01 10e3/ul Normal 0.00-0.03 [facility] Comment on above: Performed By: #### U RTPCR #### [facility] [address] [place] [address] Dr. Dwight Waters IG % 0.2 % Normal 0.0-0.5 [facility] Comment on above: Performed By: #### U RTPCR #### [facility] [address] [place] [address] Dr. Dwight Waters LYMPH # 1.9 103/ul Normal 1.2-3.8 [facility] Comment on above: Performed By: #### U RTPCR #### [facility] [address] [place] [address] Dr. Dwight Waters Lymphocytes/100 WBC (Bld) 29.8 % Normal 20.5-60.0 [facility] Comment on above: Performed By: #### U RTPCR #### [facility] [address] [place] [address] Dr. Dwight Waters MANUAL DIFF REQ NO Normal [facility] Comment on above: Performed By: #### U RTPCR #### [facility] [address] [place] [address] Dr. Dwight Waters MCH (RBC) [Entitic mass] 28.2 pg Normal 25.9-34.0 [facility] Comment on above: Performed By: #### U RTPCR #### [facility] [address] [place] [address] Dr. Dwight Waters MCHC (RBC) [Mass/Vol] 31.7 g/dL Normal 29.9-35.2 [facility] Comment on above: Performed By: #### U RTPCR #### [facility] [address] [address] [address] Dwight Waters MCV (RBC) [Entitic vol] 89.1 fL Normal 80.0-94.0 [facility] Comment on above: Performed By: #### U RTPCR #### [facility] [address] [address] [address] Dwight Waters MONO # 0.6 103/ul Normal 0.3-0.8 [facility] Comment on above: Performed By: #### U RTPCR #### [facility] [address] [place] [address] Dr. Dwight Waters Monocytes/100 WBC (Bld) 9.0 % Normal 1.7-12.0 [facility] Comment on above: Performed By: #### U RTPCR #### [facility] [address] [place] [address] Dr. Dwight Waters NEUT # 3.6 103/ul Normal 1.4-6.5 [facility] Comment on above: Performed By: #### U RTPCR #### [facility] [address] [place] [address] Dr. Dwight Waters Neutrophils/100 WBC (Bld) 57.7 % Normal 43.0-75.0 [facility] Comment on above: Performed By: #### U RTPCR #### [facility] [address] [place] [address] Dr. Dwight Waters Platelet mean volume (Bld) [Entitic vol] 9.9 fL Normal 9.5-13.5 [facility] Comment on above: Performed By: #### U RTPCR #### [facility] [address] [place] [address] Dr. Dwight Waters PLT 249 103/ul Normal 150-450 [facility] Comment on above: Performed By: #### U RTPCR #### [facility] [address] [place] [address] Dr. Dwight Waters RBC 5.42 106/ul Normal 4.70-6.10 [facility] Comment on above: Performed By: #### U RTPCR #### [facility] [address] [place] [address] Dr. Dwight Waters WBC 6.3 103/ul Normal 4.0-11.0 [facility] Comment on above: Performed By: #### U RTPCR #### [facility] [address] [place] [address] Dr. Dwight Waters ER URINE PROFILEon 2 Bilirubin Ql (U) Unable to perform testing due to color interference. Abnormal NEGATIVE [facility] Comment on above: Performed By: #### U RTPCR #### [facility] [address] [place] [address] Dr. Dwight Waters Clarity (U) TURBID Abnormal CLEAR [facility] Comment on above: Performed By: #### U RTPCR #### [facility] [address] [place] [address] Dr. Dwight Waters Color (U) RED Abnormal YELLOW [facility] Comment on above: Performed By: #### U RTPCR #### [facility] [address] [place] [address] Dr. Dwight Waters ERUAHD A micrscopic examination will be performed if indicated. Normal [facility] Comment on above: Performed By: #### U RTPCR #### [facility] [address] [place] [address] Dr. Dwight Waters Glucose Ql (U) Unable to perform testing due to color interference. Abnormal NEGATIVE [facility] Comment on above: Performed By: #### U RTPCR #### [facility] [address] [place] [address] Dr. Dwight Waters Hemoglobin Ql (U) Unable to perform testing due to color interference. Abnormal NEGATIVE [facility] Comment on above: Performed By: #### U RTPCR #### [facility] [address] [place] [address] Dr. Dwight Waters Ketones Ql (U) Unable to perform testing due to color interference. Abnormal NEGATIVE [facility] Comment on above: Performed By: #### U RTPCR #### [facility] [address] [place] [address] Dr. Dwight Waters LEUKOCYTES Unable to perform testing due to color interference. Abnormal NEGATIVE [facility] Comment on above: Performed By: #### U RTPCR #### [facility] [address] [place] [address] Dr. Dwight Waters Nitrite Ql (U) Unable to perform testing due to color interference. Abnormal NEGATIVE [facility] Comment on above: Performed By: #### U RTPCR #### [facility] [address] [place] [address] Dr. Dwight Waters pH (U) 6.5 [pH] Normal 5-9 [facility] Comment on above: Performed By: #### U RTPCR #### [facility] [address] [place] [address] Dr. Dwight Waters SPEC GRAVITY 1.020 Normal 1.005-<=1.025 [facility] Comment on above: Performed By: #### U RTPCR #### [facility] [address] [place] [address] Dr. Dwight Waters UA PROTEIN Unable to perform testing due to color interference. Normal NEGATIVE/ TRACE [facility] Comment on above: Performed By: #### U RTPCR #### [facility] [address] [place] [address] Dr. Dwight Waters UR MICRO IND INDICATED Normal [facility] Comment on above: Performed By: #### U RTPCR #### [facility] [address] [place] [address] Dr. Dwight Waters UROBILINOGEN Unable to perform testing due to color interference. Normal 0.2 - 1.0 [facility] Comment on above: Performed By: #### U RTPCR #### [facility] [address] [place] [address] Dr. Dwight Waters PROF 14(COMP METB)on 022 Albumin [Mass/Vol] 3.8 g/dL Normal 3.4-5.0 [facility] Comment on above: Performed By: #### C MP #### [facility] [address] [place] [address] Dr. Dwight Waters Albumin/Globulin [Mass ratio] 1.1 {ratio} Normal [facility] Comment on above: Performed By: #### C MP #### [facility] [address] [address] [address] Dwight Waters ALP [Catalytic activity/Vol] 106 U/L Normal 46-116 [facility] Comment on above: Performed By: #### C MP #### [facility] [address] [address] [address] Dwight Waters ALT [Catalytic activity/Vol] 30 U/L Normal 16-63 [facility] Comment on above: Performed By: #### C MP #### [facility] [address] [address] [address] Dwight Waters Anion gap [Moles/Vol] 11.7 mmol/L Normal [facility] Comment on above: Performed By: #### C MP #### [facility] [address] [place] [address] Dr. Dwight Waters AST [Catalytic activity/Vol] 16 U/L Normal 15-37 [facility] Comment on above: Performed By: #### C MP #### [facility] [address] [address] [address] Dwight Waters Bilirubin [Mass/Vol] 0.6 mg/dL Normal 0.2-1.0 [facility] Comment on above: Performed By: #### C MP #### [facility] [address] [address] [address] Dwight Waters Calcium [Mass/Vol] 9.1 mg/dL Normal 8.5-10.1 [facility] Comment on above: Performed By: #### C MP #### [facility] [address] [address] [address] Dwight Waters CO2 [Moles/Vol] 27.4 mmol/L Normal 21.0-32.0 [facility] Comment on above: Performed By: #### C MP #### [facility] [address] [address] [address] Dwight Waters Creatinine [Mass/Vol] 1.18 mg/dL Normal 0.70-1.30 [facility] Comment on above: Performed By: #### C MP #### [facility] [address] [address] [address] Dwight Waters EGFR-AF FINNISH >60 Normal >=60 [facility] Comment on above: Performed By: #### C MP #### [facility] [address] [address] [address] Dwight Waters EGFR-NON AF FINNISH >60 Normal >=60 [facility] Comment on above: Performed By: #### C MP #### [facility] [address] [address] [address] Dwight Waters Globulin (S) [Mass/Vol] 3.6 g/dL Normal [facility] Comment on above: Performed By: #### C MP #### [facility] [address] [address] [address] Dwight Waters Glucose [Mass/Vol] 192 mg/dL Critically high 74-106 [facility] Comment on above: Performed By: #### C MP #### [facility] [address] [id number] Dr. Dwight Waters Potassium [Moles/Vol] 4.1 mmol/L Normal 3.5-5.1 [facility] Comment on above: Performed By: #### C MP #### [facility] [address] [address] [address] Dwight Waters Protein [Mass/Vol] 7.4 g/dL Normal 6.4-8.2 [facility] Comment on above: Performed By: #### C MP #### [facility] [address] [address] [address] Dwight Waters Sodium [Moles/Vol] 142 mmol/L Normal 136-145 [facility] Comment on above: Performed By: #### C MP #### [facility] [address] [address] [address] Dwight Waters Urea nitrogen [Mass/Vol] 17.0 mg/dL Normal 7.0-18.0 [facility] Comment on above: Performed By: #### C MP #### [facility] [address] [place] [address] Dr. Dwight Waters Urea nitrogen/Creatinine [Mass ratio] 14.4 mg/mg Normal [facility] Comment on above: Performed By: #### C MP #### [facility] [address] [place] [address] Dr. Dwight Waters URINE MICROSCOPIC ONLYon BACTERIA NONE SEEN Normal NONE SEEN [facility] Comment on above: Performed By: #### U RTPCR #### [facility] [address] [place] [address] Dr. Dwight Waters Bacteria identified Cx Nom (U) NOT INDICATED Normal [facility] Comment on above: Performed By: #### U RTPCR #### [facility] [address] [place] [address] Dr. Dwight Waters CAST NONE SEEN Normal NONE SEEN [facility] Comment on above: Performed By: #### U RTPCR #### [facility] [address] [place] [address] Dr. Dwight Waters Crystals LM Nom (Urine sed) NONE SEEN Normal NONE SEEN [facility] Comment on above: Performed By: #### U RTPCR #### [facility] [address] [place] [address] Dr. Dwight Waters Epithelial cells LM Ql (Urine sed) RARE Normal NONE SEEN /RARE [facility] Comment on above: Performed By: #### U RTPCR #### [facility] [address] [place] [address] Dr. Dwight Waters MUCOUS NONE SEEN Normal NONE SEEN [facility] Comment on above: Performed By: #### U RTPCR #### [facility] [address] [place] [address] Dr. Dwight Waters RBC (U) [#/Vol] /uL Abnormal 0-2 [facility] Comment on above: Performed By: #### U RTPCR #### [facility] [address] [place] [address] Dr. Dwight Waters WBC NONE SEEN Normal NONE SEEN [facility] Comment on above: Performed By: #### U RTPCR #### [facility] [address] [place] [address] Dr. Dwight Ortiz (Potassium)on 01-06-2020 Potassium [Moles/Vol] 4.4 mmol/L Normal 3.7-5.3 [facility] Comment on above: Performed By: #### K #### [facility] [address] [place] [address] [employer] Operator: Kehinde Woodward MD Potassiumon 01-06-2020 Potassium [Moles/Vol] 4.4 mmol/L 3.7 - 5.3 mmol/L [facility] Work Phone: Hemoglobin and Hematocrit, B loodon 10-24-2019 Hematocrit (Bld) [Volume fraction] 23.6 % Low 40.7 - 50.3 % [place] Hemoglobin (Bld) [Mass/Vol] 7.3 g/dL Low 13 - 17 g/dL [place] Interpretation and review of laboratory results Abnormal [place] Hgb/Hcton 10-24-2019 Hematocrit (Bld) [Volume fraction] 23.6 % Low 40.7-50.3 [facility] Comment on above: Performed By: #### H H #### [facility] [address] [place] [address] Dr[address] [id number] [employer] Operator: Kehinde Woodward MD Hemoglobin (Bld) [Mass/Vol] 7.3 g/dL Low 13.0-17.0 [facility] Comment on above: Performed By: #### H H #### [facility] [address] [place] [id number] [employer] Operator: Kehinde Woodward MD Hemoglobinon 08-27-2019 Hemoglobin (Bld) [Mass/Vol] 7.5 g/dL Low 13.0-17.0 [facility] Comment on above: Performed By: #### H GB #### [facility] [address] [place] [address] [employer] Operator: Kehinde Woodward MD Hemoglobin (Bld) [Mass/Vol] 7.5 g/dL Low 13 - 17 g/dL [place] Interpretation and review of laboratory results Abnormal [place] Hemoglobinon 08-08-2019 Hemoglobin (Bld) [Mass/Vol] 8.3 g/dL Low 13.0-17.0 [facility] Comment on above: Performed By: #### H GB #### [facility] [address] [place] [address] [employer] Operator: Kehinde Woodward MD Hemoglobin (Bld) [Mass/Vol] 8.3 g/dL Low 13 - 17 g/dL [place] Interpretation and review of laboratory results Abnormal [place] Hemoglobinon 08-04-2019 Hemoglobin (Bld) [Mass/Vol] 8.0 g/dL Low 13.0-17.0 [facility] Comment on above: Performed By: #### H GB #### [facility] [address] [place] [address] [employer] Operator: Kehinde Woodward MD Hemoglobin A1Con 08-03-2019 HbA1c (Bld) [Mass fraction] % Low 4.8-5.9 [facility] Comment on above: Result Comment: The ADA and AACC recommend providing the estimated average glucose result to permit better patient understanding of their HBA1c result. Performed By: #### G LYHGB #### [address] [place] [place] [address] [employer] Operator: Kehinde Woodward MD Glucose [Mass/Vol] mg/dL mg/dL [place] Comment on above: The ADA and AACC rec ommend providing the estimated average glucose result to permit better patient understanding of their HBA1c result. HbA1c (Bld) [Mass fraction] % Low 4.8 - 5.9 % [place] Interpretation and review of laboratory results Abnormal [place] Hemoglobinon 08-01-2019 Hemoglobin (Bld) [Mass/Vol] 8.1 g/dL Low 13.0-17.0 [facility] Comment on above: Performed By: #### H GB #### [facility] [address] [place] [id number] [employer] Operator: Kehinde Woodward MD Hemoglobin (Bld) [Mass/Vol] 8.1 g/dL Low 13 - 17 g/dL [place] Interpretation and review of laboratory results Abnormal [place] Hgb/Hcton 06-10-2019 Hematocrit (Bld) [Volume fraction] 24.3 % Low 40.7-50.3 [facility] Comment on above: Performed By: #### H H #### [address] [place] [id number] [employer] Operator: Kehinde Woodward MD Hemoglobin (Bld) [Mass/Vol] 7.4 g/dL Low 13.0-17.0 [facility] Comment on above: Performed By: #### H H #### [address] [place] [id number] [employer] Operator: Kehinde Woodward MD Hemoglobinon 06-01-2019 Hemoglobin (Bld) [Mass/Vol] 7.2 g/dL Low 13.0-17.0 [facility] Comment on above: Performed By: #### H GB #### [address] [place] [id number] [employer] Operator: Kehinde Woodward MD K (Potassium)on 01-14-2019 Potassium [Moles/Vol] 3.6 mmol/L Low 3.7-5.3 [facility] Comment on above: Performed By: #### K #### [address] [place] [address] [employer] Operator: Kehinde Woodward MD Otheron 10-19-2018 IMPRESSION: [...] characteristics determined by Toxicology Laboratory at [facility]. It has not been cleared or [...] Amitriptyline(50), Amphetamine(250), Atenolol(500), Barbiturates(1000), Benzoylecgonine(50), Buprenorphine(50), Bupropion(25), Caffeine(21143), Chlordiazepoxide(50), Chlorpheniramine(100), Chlorpromazine(50), Citalopram(100), Clonazepam(200), Cocaine(25), Codeine(200), [...] LAB, [facility] TOXICOLOGY SCREEN URINE - [facility] Drugs identified Screen Nom (U) For Medical Purposes Only, Non-forensic, screen results are presumptive. No confirmatory testing will follow. Invalid Interpretation Code LAB, [facility] Comment on above: This Liquid Chromato graphy Mass Spectrometry (LC/MS/MS) test was developed and its performance characteristics determined by Toxicology Laboratory at [facility]. It has not been cleared or [...] Amitriptyline(50), Amphetamine(250), Atenolol(500), Barbiturates(200), Benzoylecgonine(50), Buprenorphine(500), Bupropion(25), Caffeine(46258), Cannabinoids(THC)(50), Chlordiazepoxide(50), Chlorpheniramine(100), Chlorpromazine(50), Citalopram(100), Clonazepam(200), Cocaine(25), [...] Pressure Location Clementina Montesinos [facility] 09-08-2024 13:40-0400 Diastolic blood pressure 90 mm[Hg] Clementina Montesinos [facility] 09-08-2024 13:40-0400 Heart rate 66 /min Clementina Montesinos [facility] 09-08-2024 13:40-0400 Systolic blood pressure 144 mm[Hg] Clementina Montesinos [facility] 06-17-2024 08:37-0400 Body mass index (BMI) [Ratio] 29.43 kg/m2 Rebeca Gutierrez NURSE TRANSITIONAL-SENIOR DATA MODELER Work Phone: [facility] 06-17-2024 08:37-0400 Body temperature 97.39 [degF] Rebeca Gutierrez NURSE TRANSITIONAL-SENIOR DATA MODELER Work Phone: [facility] 06-17-2024 08:37-0400 Body weight 85.23 kg Rebeca Gutierrez NURSE TRANSITIONAL-SENIOR DATA MODELER Work Phone: [facility] 06-17-2024 08:37-0400 Diastolic blood pressure 75 mm[Hg] Rebeca Gutierrez NURSE TRANSITIONAL-SENIOR DATA MODELER Work Phone: [facility] 06-17-2024 08:37-0400 Heart rate 53 /min Rebeca Gutierrez NURSE TRANSITIONAL-SENIOR DATA MODELER Work Phone: [facility] 06-17-2024 08:37-0400 Systolic blood pressure 143 mm[Hg] Rebeca Gutierrez NURSE TRANSITIONAL-SENIOR DATA MODELER Work Phone: [facility] 06-17-2024 08:36-0400 Body mass index (BMI) [Ratio] 29.43 kg/m2 Daisha Sobotka DO Work Phone: [facility] 06-17-2024 08:36-0400 Body temperature 97.39 [degF] Daisha Sobotka DO Work Phone: [facility] 06-17-2024 08:36-0400 Body weight 85.23 kg Daisha Sobotka DO Work Phone: [facility] 06-17-2024 08:36-0400 Diastolic blood pressure 75 mm[Hg] Daisha Max DO Work Phone: [facility] 06-17-2024 08:36-0400 Heart rate 53 /min Daisha Max DO Work Phone: [facility] 06-17-2024 08:36-0400 Systolic blood pressure 143 mm[Hg] Daisha Max DO Work Phone: [facility] 02-26-2024 09:07-0400 Diastolic blood pressure 56 mm[Hg] Candie Almaguer MD Work Phone: [facility] 02-26-2024 09:07-0400 Heart rate 65 /min Candie Almaguer MD Work Phone: [facility] 02-26-2024 09:07-0400 Systolic blood pressure 113 mm[Hg] Candie Almaguer MD Work Phone: [facility] 02-26-2024 09:06-0400 Body height 170.2 cm Candie Almaguer MD Work Phone: [facility] 02-26-2024 09:06-0400 Body mass index (BMI) [Ratio] 28.9 kg/m2 Candie Almaguer MD Work Phone: [facility] 02-26-2024 09:06-0400 Body weight 83.69 kg Candie Almaguer MD Work Phone: [facility] 02-26-2024 09:06-0400 Respiratory rate 20 /min Candie Almaguer MD Work Phone: [facility] 02-26-2024 09:06-0400 SaO2% (BldA) [Mass fraction] 97 % Candie Almaguer MD Work Phone: [facility] 01-23-2024 15:04-0500 Body temperature 97.9 [degF] Kevin Prince MD Work Phone: [facility] 01-23-2024 15:04-0500 Diastolic blood pressure 67 mm[Hg] Kevin Prince MD Work Phone: [facility] 01-23-2024 15:04-0500 Heart rate 51 /min Kevin Prince MD Work Phone: [facility] 01-23-2024 15:04-0500 Respiratory rate 16 /min Kevin Prince MD Work Phone: [facility] 01-23-2024 15:04-0500 SaO2% (BldA) [Mass fraction] 94 % Kevin Prince MD Work Phone: [facility] 01-23-2024 15:04-0500 Systolic blood pressure 151 mm[Hg] Kevin Prince MD Work Phone: [facility] 01-23-2024 10:46-0500 Body mass index (BMI) [Ratio] 30.94 kg/m2 Kevin Prince MD Work Phone: [facility] 01-23-2024 10:46-0500 Body weight 89.6 kg Kevin Prince MD Work Phone: [facility] 01-18-2024 11:21-0500 Body height 170.2 cm Kevin Prince MD Work Phone: [facility] 01-06-2024 09:04-0500 Body height 170.2 cm Zuly Bruno SIMULATION EDUCATOR Work Phone: [facility] 01-06-2024 09:04-0500 Body mass index (BMI) [Ratio] 32.42 kg/m2 Zuly Bruno SIMULATION EDUCATOR Work Phone: [facility] 01-06-2024 09:04-0500 Body temperature 97.81 [degF] Zuly Torresholz SIMULATION EDUCATOR Work Phone: [facility] 01-06-2024 09:04-0500 Body weight 93.89 kg Zulytray Torresholz SIMULATION EDUCATOR Work Phone: [facility] 01-06-2024 09:04-0500 Diastolic blood pressure 70 mm[Hg] Zuly Brianholz SIMULATION EDUCATOR Work Phone: [facility] 01-06-2024 09:04-0500 Heart rate 95 /min Zuly Kristopherhholz SIMULATION EDUCATOR Work Phone: [facility] 01-06-2024 09:04-0500 Respiratory rate 17 /min Zuly Brianholz SIMULATION EDUCATOR Work Phone: [facility] 01-06-2024 09:04-0500 SaO2% (BldA) [Mass fraction] 99 % Zuly Brianholz SIMULATION EDUCATOR Work Phone: [facility] 01-06-2024 09:04-0500 Systolic blood pressure 138 mm[Hg] Zuly Kristopherhholz SIMULATION EDUCATOR Work Phone: [facility] 09-11-2023 10:31-0400 Body temperature 97.81 [degF] Steve Tammy MBBS Work Phone: [facility] 09-11-2023 10:31-0400 Diastolic blood pressure 66 mm[Hg] Steve Tammy MBBS Work Phone: [facility] 09-11-2023 10:31-0400 Heart rate 70 /min Steve Tammy MBBS Work Phone: [facility] 09-11-2023 10:31-0400 Respiratory rate 20 /min Steve Tammy MBBS Work Phone: [facility] 09-11-2023 10:31-0400 SaO2% (BldA) [Mass fraction] 91 % Steve Tammy MBBS Work Phone: [facility] 09-11-2023 10:31-0400 Systolic blood pressure 129 mm[Hg] Steve Tammy MBBS Work Phone: [facility] 09-10-2023 15:50-0400 Body mass index (BMI) [Ratio] 31.99 kg/m2 Steve Tammy MBBS Work Phone: [facility] 09-10-2023 15:50-0400 Body weight 92.67 kg Steve Tammy MBBS Work Phone: [facility] 09-02-2023 07:32-0400 Body height 170.2 cm Steve Tammy MBBS Work Phone: [facility] 08-28-2023 13:33-0400 Body height 170.2 cm Steve Tammy MBBS Work Phone: [facility] 08-28-2023 13:33-0400 Body mass index (BMI) [Ratio] 32.12 kg/m2 Steve Tammy MBBS Work Phone: [facility] 08-28-2023 13:33-0400 Body temperature 97.3 [degF] Steve Tamym MBBS Work Phone: [facility] 08-28-2023 13:33-0400 Body weight 93.03 kg Steve Tammy MBBS Work Phone: [facility] 08-28-2023 13:33-0400 Diastolic blood pressure 41 mm[Hg] Steve Tammy MBBS Work Phone: [facility] 08-28-2023 13:33-0400 Heart rate 116 /min Steve Tammy MBBS Work Phone: [facility] 08-28-2023 13:33-0400 Systolic blood pressure 106 mm[Hg] Steve Tammy MBBS Work Phone: [facility] 06-12-2023 14:50-0400 Body mass index (BMI) [Ratio] 33.8 kg/m2 Rebeca Gutierrez NURSE TRANSITIONAL-SENIOR DATA MODELER Work Phone: [facility] 06-12-2023 14:50-0400 Body temperature 97.3 [degF] Rebeca Gutierrez NURSE TRANSITIONAL-SENIOR DATA MODELER Work Phone: [facility] 06-12-2023 14:50-0400 Body weight 97.89 kg Rebeca Gutierrez NURSE TRANSITIONAL-SENIOR DATA MODELER Work Phone: [facility] 06-12-2023 14:50-0400 Diastolic blood pressure 77 mm[Hg] Rebeca Gutierrez NURSE TRANSITIONAL-SENIOR DATA MODELER Work Phone: [facility] 06-12-2023 14:50-0400 Heart rate 76 /min Rebeca Gutierrez NURSE TRANSITIONAL-SENIOR DATA MODELER Work Phone: [facility] 06-12-2023 14:50-0400 Systolic blood pressure 146 mm[Hg] Rebeca Gutierrez NURSE TRANSITIONAL-SENIOR DATA MODELER Work Phone: [facility] 01-16-2023 08:57-0500 Body height 170.2 cm [facility] Work Phone: [facility] 01-16-2023 08:57-0500 Body mass index (BMI) [Ratio] 33.66 kg/m2 [facility] Work Phone: [facility] 01-16-2023 08:57-0500 Body temperature 97.3 [degF] [facility] Work Phone: [facility] 01-16-2023 08:57-0500 Body weight 97.48 kg [facility] Work Phone: [facility] 01-16-2023 08:57-0500 Diastolic blood pressure 75 mm[Hg] [facility] Work Phone: [facility] 01-16-2023 08:57-0500 Heart rate 76 /min [facility] Work Phone: [facility] 01-16-2023 08:57-0500 Systolic blood pressure 142 mm[Hg] [facility] Work Phone: [facility] 09-10-2022 09:38-0400 Body height 170.2 cm Ryan Yepez MD Work Phone: [facility] 09-10-2022 09:38-0400 Body mass index (BMI) [Ratio] 33.67 kg/m2 Ryan Yepez MD Work Phone: [facility] 09-10-2022 09:38-0400 Body weight 97.52 kg Ryan Yepez MD Work Phone: [facility] 09-10-2022 09:38-0400 Diastolic blood pressure 83 mm[Hg] Ryan Yepez MD Work Phone: [facility] 09-10-2022 09:38-0400 Heart rate 64 /min Ryan Yepez MD Work Phone: [facility] 09-10-2022 09:38-0400 SaO2% (BldA) [Mass fraction] 96 % Ryan Yepez MD Work Phone: [facility] 09-10-2022 09:38-0400 Systolic blood pressure 129 mm[Hg] Ryan Yepez MD Work Phone: [facility] 07-07-2022 13:48-0400 Diastolic blood pressure 76 mm[Hg] Ryan Yepez MD Work Phone: [facility] 07-07-2022 13:48-0400 Heart rate 82 /min Ryan Yepez MD Work Phone: [facility] 07-07-2022 13:48-0400 SaO2% (BldA) [Mass fraction] 96 % Ryan Yepez MD Work Phone: [facility] 07-07-2022 13:48-0400 Systolic blood pressure 141 mm[Hg] Ryan Yepez MD Work Phone: [facility] 06-27-2022 13:32-0400 Body height 170.2 cm Ryan Yepez MD Work Phone: [facility] 06-27-2022 13:32-0400 Body mass index (BMI) [Ratio] 34.24 kg/m2 Ryan Yepez MD Work Phone: [facility] 06-27-2022 13:32-0400 Body temperature 98.6 [degF] Ryan Yepez MD Work Phone: [facility] 06-27-2022 13:32-0400 Body weight 99.16 kg Ryan Yepez MD Work Phone: [facility] 06-27-2022 13:32-0400 Diastolic blood pressure 78 mm[Hg] Ryan Yepez MD Work Phone: [facility] 06-27-2022 13:32-0400 Heart rate 77 /min Ryan Yepez MD Work Phone: [facility] 06-27-2022 13:32-0400 SaO2% (BldA) [Mass fraction] 95 % Ryan Yepez MD Work Phone: [facility] 06-27-2022 13:32-0400 Systolic blood pressure 121 mm[Hg] Ryan Yepez MD Work Phone: [facility] 06-27-2022 10:52-0400 Body height 170.2 cm Rena Brewster RN [facility] 06-27-2022 10:52-0400 Body mass index (BMI) [Ratio] 34.46 kg/m2 Rena Brewster RN [facility] 06-27-2022 10:52-0400 Body temperature 98.2 [degF] Rena Brewster RN [facility] 06-27-2022 10:52-0400 Body weight 99.79 kg Rena Brewster RN [facility] 06-27-2022 10:52-0400 Diastolic blood pressure 73 mm[Hg] Rena Brewster RN [facility] 06-27-2022 10:52-0400 Heart rate 78 /min Rena Brewster RN [facility] 06-27-2022 10:52-0400 Respiratory rate 20 /min Rena Brewster RN [facility] 06-27-2022 10:52-0400 SaO2% (BldA) [Mass fraction] 97 % Renaanalilia Brewster RN [facility] 06-27-2022 10:52-0400 Systolic blood pressure 135 mm[Hg] Rena Brewster RN [facility] 06-12-2022 14:23-0400 Body mass index (BMI) [Ratio] 34.59 kg/m2 Steve Munoz MBBS Work Phone: [facility] 06-12-2022 14:23-0400 Body temperature 97 [degF] Steve Farrari MBBS Work Phone: [facility] 06-12-2022 14:23-0400 Body weight 100.2 kg Steve Munoz MBBS Work Phone: [facility] 06-12-2022 14:23-0400 Diastolic blood pressure 66 mm[Hg] Steve Farrari MBBS Work Phone: [facility] 06-12-2022 14:23-0400 Heart rate 63 /min Steve LEIGH Work Phone: [facility] 06-12-2022 14:23-0400 Systolic blood pressure 133 mm[Hg] Steve LEIGH Work Phone: [facility] 05-20-2022 15:21-0400 Body temperature 97.9 [degF] Gian Villatoro MD Work Phone: [facility] 05-20-2022 15:21-0400 Diastolic blood pressure 64 mm[Hg] Gian Villatoro MD Work Phone: [facility] 05-20-2022 15:21-0400 Heart rate 55 /min Gian Villatoro MD Work Phone: [facility] 05-20-2022 15:21-0400 Respiratory rate 15 /min Gian Villatoro MD Work Phone: [facility] 05-20-2022 15:21-0400 SaO2% (BldA) [Mass fraction] 95 % Gian Villatoro MD Work Phone: [facility] 05-20-2022 15:21-0400 Systolic blood pressure 145 mm[Hg] Gian Villatoro MD Work Phone: [facility] 05-19-2022 12:15-0400 Body mass index (BMI) [Ratio] 35.87 kg/m2 Gian Villatoro MD Work Phone: [facility] 05-19-2022 12:15-0400 Body weight 103.92 kg Gian Villatoro MD Work Phone: [facility] Comment on above: standing scale 05-16-2022 16:19-0400 Body height 170.2 cm Gian Villatoro MD Work Phone: [phone] 10-19-2018 08:44-0500 BMI (Body Mass Index) 26.58 kg/m2 [facility]: 10-19-2018 08:44-0500 BP Diastolic 76 mm[Hg] [facility] Work Phone: 10-19-2018 08:44-0500 BP Systolic 144 mm[Hg] [facility] Work Phone: 10-19-2018 08:44-0500 Height 172.7 cm [facility] Work Phone: 10-19-2018 08:44-0500 Pulse (Heart Rate) 92 /min [facility] Work Phone: 10-19-2018 08:44-0500 Pulse Oximetry 99 % [facility] Work Phone: 10-19-2018 08:44-0500 Respiratory Rate 16 /min [facility] Work Phone: 10-19-2018 08:44-0500 Weight 79.29 kg [facility] Work Phone: 10-12-2018 09:50-0500 BMI (Body Mass Index) 27.24 kg/m2 [facility] Work Phone: 10-12-2018 09:50-0500 Body Temperature 98.6 [degF] [facility] Work Phone: 10-12-2018 09:50-0500 BP Diastolic 80 mm[Hg] [facility] Work Phone: 10-12-2018 09:50-0500 BP Systolic 157 mm[Hg] [facility] Work Phone: 10-12-2018 09:50-0500 Height 169.5 cm [facility] Work Phone: 10-12-2018 09:50-0500 Pulse (Heart Rate) 94 /min [facility] Work Phone: 10-12-2018 09:50-0500 Weight 78.29 kg [facility] Work Phone: Encounters Encounter Date Encounter Type Care Provider Facility Start: 11-22-2024 ambulatory Steph Silva y:DOTTIE Marie Start: 10-01-2024 End: 10-03-2024 Refill Momo Verdugo MD Work Phone: [facility] Comment on above: Decreased urine stre am (Primary Dx) Start: 09-27-2024 End: 09-27-2024 Clinisync Result Encounter Generic External Data Provider [facility] External Department Unsolicited Start: 09-27-2024 End: 09-27-2024 Clinisync Result Encounter Generic External Data Provider [facility] External Department Unsolicited Start: 09-13-2024 End: 09-13-2024 Clinisync Result Encounter Generic External Data Provider [facility] External Department Unsolicited Start: 09-13-2024 End: 09-13-2024 Clinisync Result Encounter Generic External Data Provider [facility] External Department Unsolicited Start: 09-08-2024 End: 09-08-2024 ambulatory ZULY BRUNO Facility: [facility] Start: 09-08-2024 End: 09-08-2024 Patient encounter procedure Clementina Montesinos [facility] [employer] Start: 09-07-2024 ambulatory ZULY BRUNO Facility: [facility] Start: 09-05-2024 End: 09-05-2024 ambulatory Angel Carpio RPh,PharmD Pharmacy [facility] [place] Start: 09-05-2024 End: 09-05-2024 Patient encounter procedure Angel Carpio RPh,PharmD [facility] [place] Start: 08-24-2024 ambulatory Steph Borges Facility: [facility] Start: 08-23-2024 End: 08-23-2024 ambulatory ZULY AICHHOLZ Not Available Start: 06-23-2024 End: 06-23-2024 ambulatory Meka Munoz [facility] [place] Start: 06-23-2024 End: 06-23-2024 Patient encounter procedure Meka Munoz [facility] [place] Start: 06-17-2024 End: 06-17-2024 Office outpatient visit 25 minutes Daisha Max DO Work Phone: [facility] Comment on above: Liver lesion (Primar y Dx); Liver transplant recipient; High risk medication use; Therapeutic drug monitoring; 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) Start: 06-17-2024 ambulatory DAISHA MAX [facility] ity:[facility] Start: 05-26-2024 End: 05-26-2024 ambulatory Evan Bolton RPh,PharmD Pharmacy Outpatient [facility] [place] Start: 05-26-2024 End: 05-26-2024 Patient encounter procedure Evan Bolton RPh,PharmD Pharmacy [facility] [place] Start: 05-13-2024 End: 05-13-2024 ambulatory [facility] Start: 04-18-2024 End: 04-18-2024 ambulatory ZULY AICLydiaHOLZ Not Available Start: 03-24-2024 End: 03-24-2024 Patient encounter procedure Angel Carpio RPh,PharmD [facility] [place] Start: 03-24-2024 End: 03-24-2024 ambulatory Angel Carpio RPh,PharmD Pharmacy Outpatient [facility] [place] Start: 03-22-2024 End: 03-22-2024 ambulatory JOHNNA HOLLIDAY Not Available Start: 03-17-2024 End: 03-17-2024 ambulatory JOHNNA HOLLIDAY Not Available Start: 03-14-2024 End: 03-14-2024 ambulatory FIDELINA SANCHEZ Not Available Start: 03-10-2024 End: 03-10-2024 ambulatory JOHNNA HOLLIDAY Not Available Start: 03-08-2024 End: 03-08-2024 ambulatory JOHNNA HOLLIDAY Not Available Start: 03-03-2024 End: 03-03-2024 ambulatory JOHNNA HOLLIDAY Not Available Start: 03-02-2024 End: 03-02-2024 ambulatory Meka Munoz [facility] [place] Start: 03-02-2024 End: 03-02-2024 Patient encounter procedure Meka Munoz [facility] [place] Start: 03-01-2024 ambulatory ZULY BRUNO Facility: [facility] Start: 03-01-2024 End: 03-01-2024 ambulatory JOHNNA HOLLIDAY Not Available Start: 02-26-2024 ambulatory CANDIE ALMAGUER Facility: [facility] Start: 02-26-2024 End: 02-26-2024 Office outpatient new 30 minutes Candie Almaguer MD Work Phone: [facility] [employer] [facility] Comment on above: Heart failure, diast olic, acute (Primary Dx) Start: 02-26-2024 ambulatory KELVIN PACHECO Facility: [facility] Start: 02-25-2024 End: 02-25-2024 ambulatory FIDELINA SANCHEZ Not Available Start: 02-23-2024 End: 02-23-2024 ambulatory PALMA PALACIOS Not Available Start: 02-11-2024 Patient encounter procedure Generic Provider [facility] Start: 02-11-2024 End: 02-11-2024 ambulatory ZULY KRISTOPHERLydiaNINO Not Available Start: 01-16-2024 End: 01-23-2024 Encounter for other preprocedural examination KELVIN PACHECO Facility:[facility] Start: 01-16-2024 End: 01-23-2024 Evaluation and management of inpatient Kevin Prince MD Work Phone: [id number] Comment on above: Pleural effusion on right Start: 01-16-2024 End: 01-23-2024 Patient encounter status Kevin Prince MD Work Phone: [facility] Work Phone: Start: 01-12-2024 End: 01-12-2024 ambulatory Angel Fete RPh,PharmD Pharmacy Outpatient [facility] [place] Start: 01-12-2024 End: 01-12-2024 Patient encounter procedure Angel Fete RPh,PharmD Pharm[facility]patient [facility] [place] Start: 01-08-2024 Clinisync Result Encounter Generic External Data Provider [facility] External Department Unsolicited Start: 01-08-2024 Clinisync Result Encounter Generic External Data Provider [facility] External Department Unsolicited Start: 01-06-2024 End: 01-06-2024 Office outpatient visit 25 minutes Zuly Bruno SIMULATION EDUCATOR Work Phone: [facility] Comment on above: Bilateral lower extr emity edema (Primary Dx); 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); Atherosclerosis 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); Obesity (BMI 30-39.9); DARLENE (obstructive sleep apnea); Tremor; Immunocompromised (CMS/HCC); Primary hypertension ([facility]); Shortness of breath Start: 01-06-2024 End: 01-06-2024 ambulatory ZULY AICHHOLZ Not Available Start: 01-01-2024 Clinisync Result Encounter Generic External Data Provider [facility]OMS External Department Unsolicited Start: 01-01-2024 Clinisync Result Encounter Generic External Data Provider [facility] External Department Unsolicited Start: 11-03-2023 End: 11-03-2023 ambulatory ZULY AICHHOLZ Not Available Start: 10-06-2023 ambulatory Angel Fete RPh,PharmD [facility] [place] Start: 10-06-2023 Patient encounter procedure Angel Fete RPh,PharmD [facility] [place] Start: 09-29-2023 ambulatory ZULY AICHHOLZ Facility: [facility] Start: 09-23-2023 ambulatory ZULY AICHHOLZ Facility: [facility] Start: 09-15-2023 ambulatory ZULY AICHHOLZ Facility: [facility] Start: 08-28-2023 End: 09-11-2023 Evaluation and management of inpatient Steve LEIGH Work Phone: [id number] Start: 08-28-2023 End: 08-28-2023 Office outpatient visit 25 minutes Steve LEIGH Work Phone: [facility] Comment on above: Immunosuppressed sta tus (Primary Dx); Kidney replaced by transplant; Aftercare following organ transplant; High risk medication use; Other general symptoms and signs; Abnormal blood chemistry; Hypertension secondary to other renal disorders Start: 08-19-2023 ambulatory Meka rueda [facility] Pharm[facility]patient [facility] [place] Start: 08-19-2023 Patient encounter procedure Meka Munoz [facility] [place] Start: 06-12-2023 End: 06-12-2023 Office outpatient visit 25 minutes Steve LEIGH Work Phone: [facility] Comment on above: 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) Start: 06-10-2023 ambulatory Maren Hayeney RPh,PharmD Pharm[facility]patient [facility] [place] Start: 06-10-2023 Patient encounter procedure Maren Bar RPh,PharmD Pharm[facility] [place] Start: 04-28-2023 End: 04-29-[address] DOCTOR EVANS Facility:[facility] Start: 03-12-2023 ambulatory Angel Fete RPh,PharmD Pharmacy Outpatient [facility] [place] Start: 03-12-2023 Patient encounter procedure Angel Fete RPh,PharmD Pharm[facility] [place] Start: 03-10-2023 ambulatory Angel Calee RPh,PharmD Pharmacy Outpatient [facility] [place] Start: 03-10-2023 Patient encounter procedure Angel Fete RPh,PharmD Pharmacy [facility] [place] Start: 03-02-2023 End: 03-03-[address] DOCTOR EVANS Facility:[facility] Start: 01-16-2023 End: 01-16-2023 Office outpatient visit 25 minutes Daisha Max DO Work Phone: [facility] Comment on above: Abnormal blood chemi stry [...] MD Work Phone: [facility] Comment on above: BPH with obstruction /lower urinary tract symptoms (Primary Dx); Encounter for screening for malignant neoplasm of prostate Start: 08-28-2022 End: 08-29-2022 ambulatory ROB ZULY KIANA Facility:[facility] Start: 08-14-2022 End: 08-15-[address] DOCTOR EVANS Facility:[facility] Start: 07-07-2022 End: 07-07-2022 Patient encounter procedure Ryan Yepez MD Work Phone: [facility] Comment on above: Other hydronephrosis (Primary Dx); [...] MD Work Phone: [facility] Comment on above: Other hydronephrosis (Primary Dx) [...] Phone: [facility] Comment on above: Immunosuppressed sta tus [...] LAWRENCE Facility:[facility] Start: 03-14-2022 ambulatory Comfort Rivera [facility] Work Phone: Pharmacy Outpatient [facility] [place] Start: 03-14-2022 Patient encounter procedure Comfort Rivera [facility] Work Phone: Pharmacy Outpatient [facility] [place] Start: 06-14-2021 End: 06-14-2021 ambulatory Comfort Rivera [facility] Work Phone: [facility] Start: 06-14-2021 Patient encounter procedure Comfort Rivera [facility] Work Phone: [facility] Start: 01-20-2020 End: 01-27-2020 Patient encounter procedure PEPE CASE Facility:[facility] Start: 01-06-2020 End: 01-07-2020 Patient encounter procedure RENA GUDINO [facility] Start: 01-06-2020 End: 01-06-2020 Subsequent hospital visit by physician [facility] Start: 10-24-2019 End: 10-25-2019 Patient encounter procedure TANA CAMPA [facility] Start: 10-24-2019 End: 10-24-2019 Subsequent hospital visit by physician [facility] Start: 08-27-2019 End: 08-28-2019 Patient encounter procedure RENA GUDINO [facility] Start: 08-27-2019 End: 08-27-2019 Subsequent hospital visit by physician [facility] Start: 08-08-2019 End: 08-09-2019 [facility] Start: 08-08-2019 End: 08-08-2019 Subsequent hospital visit by physician [facility] Start: 08-03-2019 End: 08-04-2019 Patient encounter procedure [facility] Start: 08-03-2019 End: 08-03-2019 Subsequent hospital visit by physician [facility] Start: 08-01-2019 End: 08-02-2019 Patient encounter procedure ROBAmber PATINO [facility] Start: 08-01-2019 End: 08-01-2019 Subsequent hospital visit by physician [facility] Start: 06-10-2019 End: 06-11-2019 Patient encounter procedure RENA GUDINO [facility] Start: 06-01-2019 End: 06-02-2019 Patient encounter procedure RENA GUDINO [facility] Start: 01-14-2019 End: 01-15-2019 Patient encounter procedure RENA GUDINO [facility] Start: 11-17-2018 End: 11-17-2018 Patient encounter procedure Fidelina Dangelo [facility] Pre Transplant Office Comment on above: Social Work Follow-u p Start: 10-19-2018 End: 10-19-2018 Patient encounter Autumncolin Rooney [facility] Pre Transplant Office Comment on [...] End: 10-13-2018 Patient encounter procedure Autumn Rooney [facility] Pre Transplant Office Comment on above: Reschedule Outside Medical Allan rds Request Start: 10-12-2018 End: 10-12-2018 Patient encounter procedure Sophie Cary [facility] Pre Transplant Office Comment on above: Alcoholic cirrhosis, unspecified whether ascites present (Primary Dx); Pre-transplant evaluation for liver transplant Start: 10-12-2018 End: 10-12-2018 Office outpatient new 60 minutes Alfredito Feliz Kaye Work Phone: [facility] [place] Pre [facility] Comment on above: Alcoholic cirrhosis, unspecified whether ascites present; ESRD (end stage renal disease) on dialysis; Pre-transplant evaluation for liver transplant Start: 10-06-2018 End: 10-06-2018 Patient encounter procedure Yovani Mejias Dominga Work Phone: Department of Radiology Comment on above: Canceled (Insurance Company Redirected Pt) Start: 10-05-2018 Patient encounter status Comfort Rivera [facility] Work Phone: [facility] Procedures Date Procedure Procedure Detail Performing Clinician Start: 09-27-2024 ALL CBC WITH AUTO DIFF Generic External Data Provider Start: 09-13-2024 ALL CBC WITH AUTO DIFF Generic External Data Provider Start: 09-08-2024 History of renal transplant Clementina Montesinos Start: 09-07-2024 Follow-up visit Follow-up ANN WHITE Start: 01-23-2024 Glucose measurement, blood LU Jain [...] #### C HM7, HFP, MGO #### [facility] (DEFAULT) [address] [place] [address] Start: 01-22-2024 Assay of magnesium Just in [...] Start: 01-20-2024 ITRACONAZOLE LEVEL Jennifer norbert Alarcon [facility] Work Phone: Start: 01-20-2024 Oscillating [...] quantifica tion each organism Fidelina Ortiz Alarcon [facility] Work Phone: Start: 01-18-2024 Echo tthrc [...] AURIS SCREEN BY PCR Carol Ann Capps NURSE TRANSITIONAL-STULL INSTALLER Work Phone: Start: 01-08-2024 ALL CBC WITH [...] blood Crow Diaz MD Work Phone: Start: 4 End: 09-02-2023 Cytp slctv cell enhancement interpj [...] AURIS SCREEN BY PCR Carol Ann Capps NURSE TRANSITIONAL-STULL INSTALLER Work Phone: Start: 08-28-2023 CBC AND ELECTRONIC [...] Performed By: #### C MP #### [facility] [address] [place] [address] Dr. Dwight Waters Start: 07-07-2022 Rmvl nfros tube req fluoro guidance Ryan Yepez MD Work Phone: Start: 06-27-2022 Ct abdomen & pelvis w/o contrast material Evan Byrd MD Work Phone: Start: 06-12-2022 Culture bct isol&prs mptv id isolate ea urine Steve S Tammy JOSHBS Work Phone: Start: 06-12-2022 EXTRA MICRO Steve S Nor i MBBS Work Phone: Start: 06-12-2022 Hemoglobin glycosyla rukhsana a1c Steve S Tammy MBBS Work Phone: Start: 06-12-2022 Hepatic function panel Yovani Orr MD Work Phone: Start: 06-12-2022 URINALYSIS REFLEX TO CULTURE Steve S Tammy MBBS Work Phone: Start: 05-20-2022 Urography antegrade [...] recipient S/P liver trans plant Comfort Rivera [facility] Work Phone: Start: 04-08-2020 H/O: liver recipient Liver tra nsplant recipient Comfort Rivera [facility] Work Phone: Start: 01-06-2020 Potassium [...] transplant -donor kidney transplant recipient Comfort Rivera [facility] Work Phone: Start: 06-10-2019 HEMOGLOBIN AND HEMAT OCRIT, BLOOD ROB KASMANI Start: 06-01-2019 Blood count hemoglobin ROB KASMANI Start: 03-22-2019 Lipid 1996 panel - S fabricio or Plasma Comfort Rivera [facility] Work Phone: Start: 01-14-2019 Potassium [...] 10-12-2018 Drug screening cannabinoids natural Yovani Mejias [employer] Work Phone: Start: 10-12-2018 End: 10-12-2018 Hepatitis a antibody haab Yovani Mejias [employer] Work Phone: Start: 10-12-2018 End: 10-12-2018 Hepatitis b core antibody hbcab total Yovani Orr Work Phone: Start: 10-12-2018 End: 10-12-2018 Hepatitis b surf antibody hbsab Yovani Mejias [employer] Work Phone: Start: 10-12-2018 End: 10-12-2018 Hepatitis c antibody Yovani Mejias [employer] Work Phone: Start: 10-12-2018 End: 10-12-2018 Iaad ia hepatitis b surface antigen [employer]ovani [employer] Work Phone: Start: 10-12-2018 End: 10-12-2018 Iaad ia hiv-1 ag w/hiv-1 & hiv-2 antbdy single Yovani Mejias [employer] Work Phone: Start: 10-12-2018 End: 10-12-2018 PSA screening Yovani Meijas [employer] Work Phone: Start: 10-12-2018 End: 10-12-2018 Thromboplastin time partial plasma/whole blood Yovani Orr Work Phone: Start: 10-12-2018 End: 10-12-2018 Assay of ethanol [employer]ovani [employer] Work Phone: Start: 10-12-2018 End: 10-12-2018 Drug/substance definitive qual/quant nos 7/more Yovani Mejias [employer] Work Phone: Start: 10-12-2018 End: 10-12-2018 Protein total xcpt refractometry urine Yovani Orr Work Phone: Start: 10-12-2018 End: 10-12-2018 VOLUME MEASURED Yovani Orr Work Phone: H/O: liver recipient Liver repla vida by transplant Steve Munoz MBBS Work Phone: H/O: liver recipient Liver trans plant recipient Daisha A Sobotka DO Work Phone: H/O: liver recipient S/P liver transplant Generic Provider H/O: liver recipient Liver trans plant recipient Daisha A Sobotka DO Work Phone: History of renal transplant Kidney replaced by transplant Steve Munoz MBBS Work [...] transplant Kidney replaced by transplant Rebeca Gutierrez APRN-SENIOR DATA MODELER Work Phone: Plan of Treatment Date Care Activity Detail Author Start: 09-20-2029 Screening for malignant neoplasm of colon [facility] Start: 08-15-2025 Potassium [Moles/volume] in Serum or Plasma POTASSIUM [facility] Start: 07-04-2025 Potassium [Moles/volume] in Serum or Plasma POTASSIUM [facility] Start: 06-20-2025 Potassium [Moles/volume] in Serum or Plasma POTASSIUM [facility] Start: 06-16-2025 End: 06-16-2025 Patient encounter procedure [facility] Start: 06-13-2025 Potassium [Moles/volume] in Serum or Plasma POTASSIUM [facility] Start: 05-23-2025 Potassium [Moles/volume] in Serum or Plasma POTASSIUM [facility] Start: 03-28-2025 Potassium [Moles/volume] in Serum or Plasma POTASSIUM [facility] Start: 03-21-2025 Potassium [Moles/volume] in Serum or Plasma POTASSIUM [facility] Start: 02-28-2025 Potassium [Moles/volume] in Serum or Plasma POTASSIUM [facility] Start: 02-10-2025 Medicare Annual Wellness (AWV) Medicare Annual Wellness (AWV) [facility] Start: 01-23-2025 Potassium [Moles/volume] in Serum or Plasma POTASSIUM [facility] Start: 10-25-2024 End: 10-25-2024 Patient encounter procedure 10/25/2024 8:40 AM EST Office Visit [facility] [address] [place] [address] Zuly Bruno NP [address] [place] [address] [facility] Start: 09-29-2024 Influenza vaccination Influenza Vaccine (#1) [facility] Comment on above: Postponed from 07/31/2024 (Patient Refus ed) Start: 09-07-2024 End: 09-07-2024 Telemedicine consultation with patient 09/07/2024 3:00 PM EDT Telemedicine Infectious Diseases [facility] [address] [place] [phone] Evan White DO [address] [place] [address] Infect[facility] Start: 08-31-2024 Screening for malignant neoplasm of lung [facility] Start: 07-31-2024 Influenza vaccination INFLUENZA VACCINE (#1) [facility] Start: 06-17-2024 End: 06-17-2024 ambulatory [facility] Start: 06-17-2024 End: 06-17-2024 Patient encounter procedure [facility] Start: 03-22-2024 Fasting lipid profile LIPID SCREENING [facility] Start: 03-22-2024 Lipid panel [facility] Start: 02-26-2024 End: 02-26-2024 Patient encounter procedure 02/26/2024 9:30 AM EDT Office Visit [facility] [employer] [facility] [address] [place] [phone] Candie Almaguer MD [address] [place] [phone] [facility] [employer] [facility] Start: 02-11-2024 End: 02-11-2024 Patient encounter procedure 02/11/2024 10:30 AM EDT Office Visit [facility] [address] [place] [address] Zuly Bruno, BA [address] [place] [phone] [facility] Start: 02-09-2024 End: 02-09-2024 Telemedicine consultation with patient 02/09/2024 3:30 PM EDT Telemedicine Infectious Diseases Care [facility] [address] [place] [phone] Hakeem Alamo MD [address] [place] [address] Infectious Diseases Care [facility] Start: 01-15-2024 End: 01-15-2024 ambulatory [facility] Start: 01-15-2024 End: 01-15-2024 Patient encounter procedure [facility] Start: 01-06-2024 End: 01-06-2026 Echocardiogram 2D complete Echocardiogram 2D complete Echocardiography Routine DARLENE (obstructive sleep apnea) Primary hypertension (CMS/HCC) Bilateral lower extremity edema Shortness of breath Expected: 01/06/2024 (Approximate), Expires: 01/06/2026 [facility] Work Phone: Comment on above: Expected: 01/06/2024 (Approximate), Expi res: 01/06/2026 Start: 01-06-2024 End: 01-06-2024 Patient encounter procedure 01/06/2024 9:00 AM EST [facility] [address] [place] [phone] Zuly Bruno NP [address] [place] [phone] [facility] Start: 12-08-2023 End: 09-07-2024 CT Chest WO contrast [facility] Work Phone: Start: 12-01-2023 COVID-19 VACCINE (2 - Moderna risk series) COVID-19 VACCINE (2 - Moderna risk series) [facility] Start: 09-23-2023 End: 09-23-2023 ambulatory [facility] Start: 09-23-2023 End: 09-23-2023 Telemedicine consultation with patient 09/23/2023 4:00 PM EDT Telemedicine Infectious Diseases Care [facility] [address] [place] [address] Hakeem Alamo MD [address] [place] [address] [facility] Start: 09-15-2023 End: 09-10-2024 ITRACONAZOLE LEVEL [facility] Start: 08-25-2023 End: 08-25-2024 ALLOSCREEN RECIPIENT (POST TX PRA) ALLOSCREEN RECIPIENT (POST TX PRA) Lab Routine Kidney replaced by transplant Aftercare following organ transplant Immunosuppressed status High risk medication use Other general symptoms and signs Abnormal blood chemistry Expected: 08/25/2023, Expires: 08/25/2024 [facility] Comment on above: Expected: 08/25/2023, Expires: Start: 07-31-2023 Influenza vaccination [facility] Start: 06-12-2023 End: 06-12-2023 Patient encounter procedure 06/12/2023 Office Visit Transplant Surgery Steve Munzo MBBS [address] [place] [address] [facility] Start: 03-11-2023 End: 03-11-2023 Telemedicine consultation with patient 03/11/2023 Telemedicine Urology Ryan Yepez MD [address] [place] [address] [facility] Start: 01-16-2023 End: 01-16-2023 Patient encounter procedure 01/16/2023 Office Visit Transplant Surgery [facility] Start: 10-31-2022 End: 10-31-2022 Patient encounter procedure 10/31/2022 Office Visit Transplant Surgery Steve Munoz MBBS [address] [place] [phone] [facility] Start: 09-10-2022 End: 09-10-2023 PSA screening PSA, SCREENING Lab Routine BPH with obstruction/lower urinary tract symptoms Encounter for screening for malignant neoplasm of prostate Expected: 09/10/2022 (Approximate), Expires: 09/10/2023 [facility] Comment on above: Expected: 09/10/2022 (Approximate), Expi res: 09/10/2023 Start: 08-11-2022 End: 08-11-2022 Patient encounter procedure 08/11/2022 Office Visit Urology Ryan Yepez MD [address] [place] [address] [facility] [place] [facility] [facility] [place] Start: 07-31-2022 Influenza vaccination [facility] Start: 07-07-2022 End: 07-07-2022 Patient encounter procedure 07/07/2022 Office Visit Urology Ryan Yepez MD [address] [facility] [address] [place] [address] [facility] [place] Start: 07-07-2022 End: 07-07-2023 FLUORO IMAGING FOR UROLOGY [facility] Comment on above: Expected: 07/07/2022, Expires: 3 1 Occurrences starti ng 07/07/2022 until 07/07/2022 Start: 06-27-2022 End: 06-27-2022 Patient encounter procedure 06/27/2022 Office Visit Urology Ryan Yepez MD [address] [facility] [address] [place] [address] [facility] Start: 06-27-2022 End: 06-27-2023 Basic metabolic 2000 panel - Serum or Plasma BASIC METABOLIC PANEL Lab Routine Other hydronephrosis Expected: 06/27/2022, Expires: 06/27/2023 [facility] Comment on above: Expected: 06/27/2022, Expires: 3 Start: 06-27-2022 End: 06-27-2022 Patient encounter procedure 06/27/2022 Appointment Computerized Tomography Scan Ryan Yepez MD [address] [facility] [address] [place] [address] Department of Radiology Start: 06-15-2022 End: 05-16-2023 CT Abdomen and Pelvis WO contrast CT ABDOMEN/PELVIS WITHOUT CONTRAST Imaging Routine FAYE (acute kidney injury) Expected: 06/15/2022 (Approximate), Expires: 05/16/2023 [facility] Work Phone: Comment on above: Expected: 06/15/2022 (Approximate), Expi res: 05/16/2023 Start: 06-12-2022 End: 06-12-2022 Patient encounter procedure 06/12/2022 Office Visit Transplant Surgery Steve Munoz MBBS [address] [place] [address] [facility] Start: 06-11-2022 End: 06-11-2023 BK VIRUS DNA QN, PCR, PLASMA BK VIRUS DNA QN, PCR, PLASMA Lab Routine Kidney replaced by transplant Liver replaced by transplant Abnormal blood chemistry Expected: 06/11/2022, Expires: 06/11/2023 [facility] Comment on above: Expected: 06/11/2022, Expires: Start: 06-04-2022 End: 06-04-2022 Patient encounter procedure 06/04/2022 Office Visit Interventional Radiology [facility] Start: 10-18-2021 End: 10-18-2021 Patient encounter procedure 10/18/2021 Office Visit Transplant Surgery Steve Munoz MBBS [address] [place] [address] [facility] Start: 07-31-2021 Influenza vaccination INFLUENZA VACCINE (#1) [facility] Start: 07-26-2021 End: 07-26-2021 Patient encounter procedure 07/26/2021 Office Visit Transplant Surgery [facility] Start: 2021 Prostate specific antigen measurement [facility] Start: 2021 Screening for malignant neoplasm of lung LUNG CANCER SCREENING [facility] Start: 2021 Zoster vaccine hzv live for subcutaneous use ZOSTER (SHINGLES) VACCINE (1 of 2) [facility] Start: 09-20-2020 Colonoscopy COLORECTAL CANCER SCREENING DISCUSSION [facility] Start: 09-20-2020 Screening for malignant neoplasm of colon [facility] Start: 07-31-2019 [facility] Start: 05-22-2019 Annual Wellness Visit (AWV) Annual Wellness Visit (AWV) [facility] Start: 04-18-2019 End: 10-19-2019 Ultrasonography of abdomen US ABDOMEN RUQ/LIVER/GB Routine Cirrhosis of liver without ascites, unspecified hepatic cirrhosis type Expected: 04/18/2019 (Approximate), Expires: 10/19/2019 [facility] Work Phone: Comment on above: Expected: 04/18/2019 (Approximate), Expi res: 10/19/2019 Start: 01-25-2019 End: 01-25-2019 Ambulatory 01/25/2019 Office Visit Gastroenterology Christin Elizabeth, NURSE TRANSITIONAL-SENIOR DATA MODELER [address] [place] [address] Division of Gastroenterology and Hepatology Gavin Start: 11-19-2018 End: 11-19-2018 Ambulatory 11/19/2018 Appointment Pulmonary Diagnostics [facility] Start: 11-19-2018 End: 11-19-2018 Ambulatory [facility] Start: 10-19-2018 End: 10-19-2018 Ambulatory Ultrasound Jakob Start: 10-12-2018 End: 10-12-2019 Hemoglobin A1c/Hemoglobin.total mass fraction (Bld) HEMOGLOBIN A1C Routine Alcoholic cirrhosis, unspecified whether ascites present Pre-transplant evaluation for liver transplant Expected: 10/12/2018, Expires: 10/12/2019 [facility] Work Phone: Comment on above: Expected: 10/12/2018, Expires: 9 Start: 10-12-2018 End: 10-12-2019 TYPE AND SCREEN - NOT FOR TRANSFUSION TYPE AND SCREEN - NOT FOR TRANSFUSION Routine Alcoholic cirrhosis, unspecified whether ascites present Pre-transplant evaluation for liver transplant Expected: 10/12/2018, Expires: 10/12/2019 [facility] Work Phone: Comment on above: Expected: 10/12/2018, Expires: 9 Start: 07-31-2018 Influenza vaccination INFLUENZA VACCINE (#1) [facility] Work Phone: Start: 2011 Fasting lipid profile LIPID SCREENING [facility] Work Phone: Start: 2011 Lipid screen Lipid screen [place], [place] Start: 1990 DTaP/Tdap/Td vaccine (1 - Tdap) DTaP/Tdap/Td vaccine (1 - Tdap) [place] Start: 1990 Hepatitis B vaccination HEP B VACCINE (1 of 3 - 19+ 3-dose series) [facility] Start: 1990 Hepatitis B Vaccine (1 of 3 - Risk Recombivax 3-dose series) Hepatitis B Vaccine (1 of 3 - Risk Recombivax 3-dose series) [place] Start: 1990 Third diphtheria, tetanus and acellular pertussis (DTaP) vaccination [facility] Start: 1990 Zoster vaccine hzv live for subcutaneous use ZOSTER (SHINGLES) VACCINE (1 of 2) [facility] Start: 1990 [facility] Start: 1989 Tetanus vaccination TETANUS [facility] Start: 1986 HIV screen HIV screen [place], [place] Start: 02-17-1984 HIV screening HIV SCREENING DISCUSSION [facility] Work Phone: Start: 1983 COVID-19 VACCINE (1) COVID-19 VACCINE (1) [facility] Start: 1982 DTaP/Tdap/Td vaccine (1 - Tdap) DTaP/Tdap/Td vaccine (1 - Tdap) [place] Start: 1977 Pneumococcal 0-64 years Vaccine (1 of 3 - PCV13) Pneumococcal 0-64 years Vaccine (1 of 3 - PCV13) [place] Start: 1977 PNEUMOCOCCAL VACCINE SERIES (1 - PCV) PNEUMOCOCCAL VACCINE SERIES (1 - PCV) [facility] Start: 1977 PNEUMOCOCCAL VACCINE SERIES (1 of 2 - PCV) PNEUMOCOCCAL VACCINE SERIES (1 of 2 - PCV) [facility] Start: 1977 [facility] Start: 02-17-1976 COVID-19 VACCINE (#1) COVID-19 VACCINE (#1) [facility] Start: 02-17-1976 [facility] Start: 1971 COVID-19 VACCINE (#1) COVID-19 VACCINE (#1) [facility] Start: 1971 Hepatitis B vaccination HEP B VACCINE (1 of 3 - 3-dose series) [facility] Start: 1971 Medicare Annual Wellness (AWV) Medicare Annual Wellness (AWV) [facility] Start: 1971 Screening for malignant neoplasm of colon [facility] Start: 1971 Tetanus vaccination [facility] BK VIRUS DNA QN, PCR , PLASMA BK VIRUS DNA QN, PCR, PLASMA Lab Routine Kidney replaced by transplant Liver replaced by transplant Abnormal blood chemistry 06/12/2022 3:38 PM EDT [facility] CALCULI, URINARY (KIDNEY STONE) CALCULI, URINARY (KIDNEY STONE) Fluids Routine 05/19/2022 8:16 AM EDT [facility] Work Phone: CANNABINOIDS, QUANT (URINE)THC CONFIRMATION CANNABINOIDS, QUANT (URINE)THC CONFIRMATION Routine Alcoholic cirrhosis, unspecified whether ascites present ESRD (end stage renal disease) on dialysis Pre-transplant evaluation for liver transplant 10/12/2018 12:57 PM [facility] Work Phone: End: 09-10-2024 CHEM 6 (LYTES, BUN CREA) [facility] EBV VCA IGG AB EBV VCA IGG AB R outine Alcoholic cirrhosis, unspecified whether ascites present ESRD (end stage renal disease) on dialysis Pre-transplant evaluation for liver transplant 10/12/2018 12:57 PM [facility] Work Phone: Fungus identified in Unspecified specimen by Culture [facility] HLA TYPING (SOLID ORGAN) HLA TYPING (SOLID ORGAN) Routine Alcoholic cirrhosis, unspecified whether ascites present ESRD (end stage renal disease) on dialysis Pre-transplant evaluation for liver transplant 10/12/2018 12:57 PM [facility] Work Phone: HSV 1 AND 2 IGG ANTIBODY HSV 1 AND 2 IGG ANTIBODY Routine Alcoholic cirrhosis, unspecified whether ascites present ESRD (end stage renal disease) on dialysis Pre-transplant evaluation for liver transplant 10/12/2018 12:57 PM [facility] Work Phone: MR Abdomen WO and W contrast IV MRI ABDOMEN WITH AND WITHOUT CONTRAST Imaging Routine Liver lesion Ordered: 06/17/2024 [facility] Comment on above: Ordered: 06/17/2024 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 specific culture [facility] PLACEMENT NEPHROSTOM Y CATHETER PERCUTANEOUS W/ IMAGE GUIDANCE PLACEMENT NEPHROSTOMY CATHETER PERCUTANEOUS W/ IMAGE GUIDANCE Imaging Routine Hydronephrosis due to obstruction of ureteral orifice FAYE (acute kidney injury) 05/17/2022 11:08 AM EDT [facility] IN POST VOID RESIDUAL IN POST VO ID RESIDUAL IN - OFFICE PERFORMED Routine BPH with obstruction/lower urinary tract symptoms Ordered: 09/10/2022 [facility] Comment on above: Ordered: 09/10/2022 PTH INTACT PTH INTACT Routi ne Alcoholic cirrhosis, unspecified whether ascites present ESRD (end stage renal disease) on dialysis Pre-transplant evaluation for liver transplant 10/12/2018 12:57 PM [facility] Work Phone: RUBEOLA IGG AB (IMMU NE STATUS) RUBEOLA IGG AB (IMMUNE STATUS) Routine Alcoholic cirrhosis, unspecified whether ascites present ESRD (end stage renal disease) on dialysis Pre-transplant evaluation for liver transplant 10/12/2018 12:57 PM [facility] Work Phone: End: 01-16-2024 Standard ECG ECG ECG Routine One Time for 1 Occurrences starting 01/16/2024 until 01/16/2024 [facility] Comment on above: One Time for 1 Occurrences starting 12/31 until 01/16/2024 End: 09-10-2024 TACROLIMUS LEVEL, TROUGH (PRE DRUG LEVEL) [facility] VARICELLA IGG AB (IM M STATUS) VARICELLA IGG AB (IMM STATUS) Routine Alcoholic cirrhosis, unspecified whether ascites present ESRD (end stage renal disease) on dialysis Pre-transplant evaluation for liver transplant 10/12/2018 12:57 PM EST [facility] Work Phone: Immunizations Immunization Date Immunization Notes Care Provider Fa cili 11-03-2023 influenza virus vacc ine, unspecified formulation Generic Provider [facility] 11-03-2023 Influenza, injectabl e, Madin Jing Canine Kidney, preservative free, quadrivalent Generic Provider [facility] 11-03-2023 Moderna SARS-CoV-2 50mcg/0.5mL Booster Generic Provider [facility] 08-28-2022 influenza, injectabl e, quadrivalent, preservative free Generic Provider [facility] 09-30-2021 influenza, injectabl e, quadrivalent, preservative free Generic Provider [facility] 10-16-2020 influenza, injectabl e, quadrivalent, contains preservative Generic Provider [facility] Payers Date Payer Category Payer Unknown [id number] 2019 Unknown [facility] [id number] 2019-Present [id number] 2018 Medicaid MEDICAID [facility] DEPT OF JOB xxxxxxxxxxxx 2018-Present [phone] [address] [place] [address] xxxxxxxxxxxx [id number] 2018 Medicaid MEDICAID MEDICAI D [id number] 2018-Present [address] [place] [address] [id number] .[id number] 2018 Medicaid [id number] [id number] .[id number] 2018 Medicare MEDICARE MEDICAR E PART A AND B xxxxxxxxxxx 2018-Present [phone] [address] [address] [place] [address] xxxxxxxxxxx [id number] .[id number] 2018 Medicare [id number] 2018 Medicare MEDICARE MEDICAR E A AND B [id number] 2018-Present [address] [place] [address] [id number] .[id number] 2018 Medicare [id number]. 1.13.172.2.7.3 .355148.315 1971 Unknown [id number] 2.16.840.1.333385.3.579.2.173 1971 Unknown [id number] 2.16.840.1.056200.3.579.2.173 1971 Unknown [id number] 2.16.840.1.260721.3.579.2.173 1971 Unknown [id number] 2.16.840.1.314122.3.579.2.173 1971 Unknown [id number] 2.16.840.1.294503.3.579.2.173 1971 Unknown [id number] 2.16.840.1.823264.3.579.2.173 1971 Unknown [id number] 2.16.840.1.720786.3.579.2.173 1971 Unknown [id number] 2.16.840.1.271194.3.579.2.173 1971 Unknown [id number] 2.16.840.1.736251.3.579.2.647 1971 Unknown [id number] 2.16.840.1.631561.3.579.2.593 1971 Unknown [id number] 2.16.840.1.544833.3.579.2.593 1971 Unknown [id number] 2.16.840.1.189311.3.579.2.593 1971 Unknown [id number] 2.16.840.1.275176.3.579.2.593 1971 Unknown [id number] 2.16.840.1.854189.3.579.2.593 1971 Unknown [id number] 2.16.840.1.560134.3.579.2.593 1971 Unknown [id number] 2.16.840.1.438189.3.579.2.593 1971 Unknown [id number] 2.16.840.1.166950.3.579.2.593 1971 Unknown [id number] 2.16.840.1.729641.3.579.2.593 1971 Unknown [id number] 2.16.840.1.761786.3.579.2.593 1971 Unknown [id number] 2.16.840.1.509774.3.579.2.593 1971 Unknown [id number] 2.16.840.1.478633.3.579.2.593 1971 Unknown [id number] 2.16.840.1.169213.3.579.2.593 1971 Unknown [id number] 2.16.840.1.880802.3.579.2.593 1971 Unknown [id number] 2.16.840.1.289399.3.579.2.593 1971 Unknown [id number] 2.16.840.1.847788.3.579.2.125 9 1971 Unknown [id number] 2.16.840.1.948009.3.579.2.125 9 1971 Unknown [id number] 2.16.840.1.241764.3.579.2.125 9 1971 Unknown [id number] 2.16.840.1.378636.3.579.2.125 9 1971 Unknown [id number] 2.16.840.1.257426.3.579.2.125 9 1971 Unknown [id number] 2.16.840.1.676722.3.579.2.125 9 1971 Unknown [id number] 2.16.840.1.372395.3.579.2.125 9 1971 Unknown [id number] 2.16.840.1.482915.3.579.2.125 9 1971 Unknown [id number] 2.16.840.1.656706.3.579.2.125 9 1971 Unknown [id number] 2.16.840.1.392050.3.579.2.125 9 1971 Unknown [id number] 2.16.840.1.435413.3.579.2.125 9 1971 Unknown [id number] 2.16.840.1.953943.3.579.2.125 9 1971 Unknown [id number] 2.16.840.1.320428.3.579.2.125 9 1971 Unknown [id number] 2.16.840.1.140754.3.579.2.125 9 1971 Unknown [id number] 2.16.840.1.412337.3.579.2.125 9 1971 Unknown [id number] 2.16.840.1.900911.3.579.2.594 1971 Unknown [id number] 2.16.840.1.446609.3.579.2.594 1971 Unknown [id number] 2.16.840.1.984710.3.579.2.594 1971 Unknown [id number] 2.16.840.1.516757.3.579.2.594 1971 Unknown [id number] 2.16.840.1.134520.3.579.2.594 1971 Unknown [id number] 2.16.840.1.721249.3.579.2.594 1971 Unknown [id number] 2.16.840.1.372774.3.579.2.594 1971 Unknown [id number] 2.16840.1.083297.3.579.2.594 1971 Unknown [id number] 2.16.840.1.593662.3.579.2.594 1971 Unknown [id number] 2.16.840.1.449978.3.579.2.594 1971 Unknown [id number] 2.16840.1.050186.3.579.2.594 1971 Unknown [id number] 2.16840.1.294724.3.579.2.727 1971 Unknown [id number] 2.16840.1.623982.3.579.2.727 1959 Medicaid [id number] 1959 Medicare [id number] Social History Date Type Detail Facility Start: 10-19-2018 End: 11-03-2023 Tobacco smoking status NHIS Former smoker [facility] Start: 07-19-1988 End: 05-14-2018 History of tobacco use Current smoker [facility] Work Phone: Start: 07-19-1988 End: 05-14-2018 History of tobacco use Cigarette Smoker [facility] Work Phone: Start: 10-19-2018 End: 10-27-2023 Cigarettes smoked current (pack per day) - Reported [facility] End: 07-19-1994 History of tobacco use Chews Tobacco [facility] Work Phone: Start: 1971 Sex Assigned At Not on file [facility] Work Phone: Start: 11-03-2018 Alcohol intake Current non-drinker of alcohol (finding) [place] Start: 06-22-2018 Alcohol Comment Hx of alcoholism [place] Start: 11-03-2018 End: 10-27-2023 Alcohol intake No [facility] Start: 07-19-2018 Tobacco use and exposure Former user [facility] Start: 09-06-2020 End: 08-23-2024 Alcohol intake Ex-drinker (finding) [facility] Start: 07-19-2018 Alcohol Comment stopped 05/14/2018 [facility] Start: 05-05-2022 End: 01-16-2023 Exposure to SARS-CoV-2 (event) Not sure [facility] Start: 07-07-2018 Gender identity Identifies as male gender (finding) [facility] Start: 01-16-2022 Sexual orientation Heterosexual (finding) [facility] Start: 11-03-2023 Tobacco use and exposure [...] Never smoked tobacco (finding) [facility] Do you belong to any clubs or organizations such as temple groups, unions, fraternal or athletic groups, or school groups? Yes [facility] Are you now , , , , never or living with a partner? [facility] Medical Equipment Procedure Code Equipment Code Equipment Original Text Equipment Identifier Dates [id number] Start: 05-23-2020 [id number] Start: 04-12-2020 [id number] FDA Start: 05-17-2022 Comment on above: Description: Implant time-out completed by intra-procedural staff including this RN, fiber optics technician, and performing physician. The following was [...] 09-08-2024 Functional Status N/A [facility] Clinical Notes 06-14-2021 to 09-08-2024 Starla Edwards [...] urethra. Follow these instructions at home: Take vjnj-uhx-gnljzkn and prescription medicines only as told by [...] provider. Document Revised: 06/04/2022 Document Reviewed: 06/04/2022 [employer] Patient Education 2023 [email or web address]. Follow Up Care 08/25/2024 09:38:26 With:Clementina James, URL Address: When:3 months Comments:med increase [facility] 09-08-2024 Note Urology Office/Clini c Note Chief [...] Skin: No rashes or suspicious lesions Assessment/Plan SIMULATION EDUCATOR referred by Zuly Bruno NP for weak [...] E&M of New Patient Moderate 45-59 Min 13872 2. Screening PSA (prostate specific antigen) (Z12.5: Encounter for screening for malignant neoplasm of prostate) No PSA records on file -Will discuss with patient at his follow up Ordered: E&M of New Patient Moderate 45-59 Min 92905 3. History of kidney transplant (Z94.0: Kidney transplant status) 08/29/24 - BUN 18, Cre 1.3, GFR 58 Pt had liver and kidney transplant in 2020 and follows yearly with [facility]. Ordered: E&M of New Patient Moderate 45-59 Min 00704 Orders: tamsulosin, 0.4 mg = 1 cap(s), Oral, BID, X 30 day(s), # 60 cap(s), Refills(s) 11, Pharmacy: [id number], 170, cm, 09/08/24 14:00:00 EDT, Height/Length Dosing, 90, kg, 09/08/24 14:00:00 EDT, Weight Dosing 98249 Measure Post Void residual urine and/or bladder capacity by US- non-imaging Urnls Dip Stick Auto w/o Microscopy POC 13020 Follow-up With When Contact Information Jaguar CASTILLO, LEANDRO Greenberg Within 3 months Additional Instructions: med increase [...] Urine Dipstick: Negative (more content not included)... [facility] Comment on above: Result Comment: Elec tronically Signed By: Clementina James.shantanu\Date and Time Signed: 09/08/24 14:33 EDT 09-08-2024 [...] Follow these instructions at home: ? Take dnzo-tpk-ctfndqj and prescription medicines only as told by [...] develop side effec (more content not included)... [facility] 09-05-2024 History of Present illness Narrative [facility] OP RX OUTREACH ADVANCED: Call Information: Date and Time of Contact: 09/05/2024 3:24 PM Method of Contact: By Phone Contact Type: Prescriptions Contactor: Patient Contactee: [facility] Shipping/Pickup: Medicare B Refill?: No Medication Name: Mycophenolate, prograf Delivery Method: Ship Delivery Location: Home Signature Required: No Receive/Pickup Date: 09/06/2024 Shipping Address: [address] [place] [address] [address] Contact Info: Specialty (Yanci) [phone] Jakob [phone] [facility] [phone] Raheem [phone] Bedside Delivery ([facility]) [phone] documented in this encounter [facility] 06-23-2024 History of Present illness Narrative [facility] RX OUTREACH ADVANCED: Call Information: Date and Time of Contact: 06/23/2024 8:52 AM Method of Contact: By Phone Contact Type: Prescriptions Contactor: [facility] OP Contactee: Patient Shipping/Pickup: Medicare B Refill?: No Medication Name: Prograf 0.2mg Delivery Method: Ship Delivery Location: Home Signature Required: No Receive/Pickup Date: 06/29/2024 Shipping Address: [address] [place] [address] [address] Contact Info: Specialty (Yanci) [phone] Jakob [phone] [facility] [phone] Raheem [phone] Bedside Delivery ([facility]) [phone] documented in this encounter [facility] 06-17-2024 History of Present illness Narrative -Referring Provider for today's consult: Self, Self -Primary Care Provider: Zuly Bruno History of Present Illness George Styles is a 54 y.o. male who presents to the [facility] [...] Left; Surgeon: Jyoti Bryant MD, PhD; Location: [facility] MAIN OR PLACEMENT NEPHROSTOMY CATHETER PERCUTANEOUS W/ IMAGE GUIDANCE 05/17/2022 Surgeon: Enzo Heart DO; Location: [facility] INTERVENTIONAL RADIOLOGY (VIR) LIVER TRANSPLANT, ORTHOTOPIC N/A 04/12/2020 Laterality: N/A; Surgeon: LU Palma; Location: [facility] DAY [facility] MAIN OR KIDNEY TRANSPLANT W/O [place] NEPHRECTOMY N/A 04/12/2020 Laterality: N/A; Surgeon: LU Palma; Location: [facility] SAME DAY SURGERY MAIN OR OTHER [...] 0.2 06/13/2024 Explant Pathology Pathologic Diagnosis A. Nikolski liver, orthotopic liver transplant resection (1458 gram): [...] up in 1 year. Daisha Max DO Paper Bundler Gastroenterology, Hepatology and Nutrition [facility] Pager: [phone] Images from the original note were not included. 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 [facility] [address] [facility] [address], [address] [facility] [address] [id number] [place] [address] [address] [facility] [address] [facility] [address] [facility] Jakob [address], [address] [place] [address] ROS and SCREEN: Chest Pain: negative Cough: [...] year: no Do you follow with a Hand Stonecutter? yes Do you have a Primary Care [...] ADDRESS WITH PHYSICIAN: [facility] Instructions Ashlee Fair RN - 06/17/2024 10:00 AM EDT - No medication changes from a liver standpoint - A MRI Abdomen has been ordered today. Please call central scheduling at [phone] to schedule or take paper copy to your local hospital - Return to clinic 06/16/2025 TRANSPLANT HEPATOLOGY 3, [facility] as scheduled documented in this encounter [facility] 06-17-2024 History of Present illness Narrative Images from the original note were not included. George Styles is a 54 y.o. 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 No longer follows with a local ruby on rails developer. History of Present Illness: Since George was [...] and lab results. Rebeca Gutierrez MSN, RN, NURSE TRANSITIONAL-BC, CCTN Certified Nurse Practitioner [facility] [address] [facility] [id number] documented in this encounter [facility] 06-17-2024 Instructions JEANNA Hess - 06/17/2024 9:30 AM EDT Tacrolimus - increase to 0.2 mg packet three time per day; goal 3 to 5 ng/dL ; when the itraconazole stops 09/03/2024, reduce to 0.5 mg twice daily. Once your tacrolimus level is 3-5 ng/dL, you may reduce labs to every other week. documented in this encounter [facility] 05-26-2024 History of Present illness Narrative [facility] RX OUTREACH ADVANCED: Call Information: Date and Time of Contact: 05/26/2024 4:35 PM Method of Contact: By Phone Contact Type: Prescriptions Contactor: [facility] OP Contactee: Patient Contact Outcome: Left message and Follow-up Contact Info: Specialty ([place]) [phone] Jakob [phone] [facility] [phone] Raheem [phone] Bedside Delivery ([facility]) [phone] [facility] RX OUTREACH ADVANCED: Call Information: Date and Time of Contact: 05/30/2024 4:52 PM Method of Contact: By Phone Contact Type: Prescriptions Contactor: Patient Contactee: [facility] OP Shipping/Pickup: Medicare B Refill?: No Medication Name: Myco sod 360mg, Prograf 0.2mg Delivery Method: Ship Delivery Location: Home Signature Required: No Receive/Pickup Date: 06/06/2024 Shipping Address: [address] [facility] [address] [place] [address] Contact Info: Specialty ([place]) [phone] [facility] [phone] [facility] [phone] Raheem [phone] Bedside Delivery ([facility]) [phone] documented in this encounter [facility] 05-13-2024 Note [place] [facility] - [facility] Subjective George Styles is [...] , Rfl: t (more content not included)... [facility] 03-24-2024 History of Present illness Narrative [facility] RX OUTREACH ADVANCED: Call Information: Date and Time of Contact: 03/24/2024 4:14 PM Method of Contact: By Phone Contact Type: Prescriptions Contactor: [facility] OP Contactee: Patient Contact Outcome: Left message Shipping/Pickup: Medication Name: Prograf 0.2mg pack Contact Info: Specialty ([place]) [phone] [facility] [phone] [facility] [phone] Raheem [phone] Bedside Delivery ([facility]) [phone] [facility] RX OUTREACH ADVANCED: Call Information: Date and Time of Contact: 03/28/2024 3:58 PM Method of Contact: By Phone Contact Type: Prescriptions Contactor: [facility] Contactee: Patient Contact Outcome: Left message and Call back later Shipping/Pickup: Medication Name: Mycophenolate, prograf Contact Info: Specialty ([place]) [phone] [facility] [phone] [facility] [phone] Raheem [phone] Bedside Delivery ([facility]) [phone] [facility] RX OUTREACH ADVANCED: Call Information: Method of Contact: By Phone Contact Type: Prescriptions Contactor: Patient Contactee: [facility] Shipping/Pickup: Medicare B Refill?: No Medication Name: Mycopheolate 360mg and Prograf Delivery Method: Ship Delivery Location: Home Signature Required: No Receive/Pickup Date: 04/04/2024 Shipping Address: [address] [place] [address] [address] Contact Info: Specialty ([place]) [phone] [facility] [phone] [facility] [phone] Raheem [phone] Bedside Delivery ([facility]) [phone] documented in this encounter [facility] 03-24-2024 History of Present illness Narrative [facility] RX OUTREACH ADVANCED: Call Information: Date and Time of Contact: 03/24/2024 4:14 PM Method of Contact: By Phone Contact Type: Prescriptions Contactor: [facility] Contactee: Patient Contact Outcome: Left message Shipping/Pickup: Medication Name: Prograf 0.2mg pack Contact Info: Specialty ([place]) [phone] [facility] [phone] [facility] [phone] Raheem [phone] Bedside Delivery ([facility]) [phone] [facility] RX OUTREACH ADVANCED: Call Information: Date and Time of Contact: 03/28/2024 3:58 PM Method of Contact: By Phone Contact Type: Prescriptions Contactor: [facility] Contactee: Patient Contact Outcome: Left message and Call back later Shipping/Pickup: Medication Name: Mycophenolate, prograf Contact Info: Specialty ([place]) [phone] [facility] [phone] [facility] [phone] Raheem [phone] Bedside Delivery ([facility]) [phone] [facility] RX OUTREACH ADVANCED: Call Information: Method of Contact: By Phone Contact Type: Prescriptions Contactor: Patient Contactee: [facility] Shipping/Pickup: Medicare B Refill?: No Medication Name: Mycopheolate 360mg and Prograf Delivery Method: Ship Delivery Location: Home Signature Required: No Receive/Pickup Date: 04/04/2024 Shipping Address: [address] [place] [address] Contact Info: Specialty ([place]) [phone] [facility] [phone] [facility] [phone] [facility] [phone] Bedside Delivery ([facility]) [phone] [facility] RX OUTREACH ADVANCED: Pre-Verification/Specialty Assessment/Disease [...] Within normal limits Contact Info: Specialty ([place]) [phone] [facility] [phone] [facility] [phone] Raheem [phone] Bedside Delivery ([facility]) [phone] documented in this encounter [facility] 03-02-2024 History of Present illness [...] del of broth Contact Info: Specialty ([place]) [phone] [facility] [phone] [facility] [phone] Raheem [phone] Bedside Delivery ([facility]) [phone] [facility] RX OUTREACH ADVANCED: Call Information: Date and Time of Contact: 03/02/2024 3:49 PM Method of Contact: By Phone Contact Type: Prescriptions Contactor: [facility] Contactee: Patient Contact Outcome: Left message and Follow-up Shipping/Pickup: Medication Name: Myco 360mg and Prograf 0.2mg Contact Info: Specialty ([place]) [phone] [facility] [phone] [facility] [phone] Raheem [phone] Bedside Delivery ([facility]) [phone] [facility] RX OUTREACH ADVANCED: Call Information: Date and Time of Contact: 03/02/2024 4:08 PM Method of Contact: By Phone Contact Type: Prescriptions Contactor: [facility] Contactee: Patient Shipping/Pickup: Medicare B Refill?: No Medication Name: Myco 360 / prograf 0.2 Delivery Method: Ship Delivery Location: Home Signature Required: No Receive/Pickup Date: 03/03/2024 Shipping Address: [address] [place] [address] Contact Info: Specialty ([place]) [phone] [facility] [phone] [facility] [phone] Raheem [phone] Bedside Delivery ([facility]) [phone] documented in this encounter [facility] 02-26-2024 History of Present illness [...] presents to the HF Clinic at the [facility] on 02/26/2024 for initial evaluation of [...] Left; Surgeon: Jyoti Bryant MD, PhD; Location: [facility] MAIN OR PLACEMENT NEPHROSTOMY CATHETER PERCUTANEOUS W/ IMAGE GUIDANCE 05/17/2022 Surgeon: Enzo Heart DO; Location: [facility] INTERVENTIONAL RADIOLOGY (VIR) LIVER TRANSPLANT, ORTHOTOPIC N/A 04/12/2020 Laterality: N/A; Surgeon: LU Palma; Location: [facility] SAME DAY SURGERY MAIN OR KIDNEY TRANSPLANT W/O [place] NEPHRECTOMY N/A 04/12/2020 Laterality: N/A; Surgeon: LU Palma; Location: [facility] SAME DAY SURGERY MAIN OR OTHER [...] qd Antithrombotic: no Statin: no ICD: NA TEMPLATE STORAGE CLERK: NA CV Test results: ECHOCARDIOGRAM 01/18/2024 (Final) Interpretation Summary Left Ventricle: Chamber size is normal. Increased wall thickness. Concentric hypertrophy. Normal global systolic function. Regional wall motion is normal. Ejection fraction is normal (55 - 60%). Right Ventricle: Chamber size is normal. Systolic function is low normal. No hemodynamically significnat valve disease. Moderate pericardial effusion. There is no evidence of tamponade. [facility] (01/20/24) Hemodynamic Summary: Baseline Hemodynamics Systemic BP [...] will be BP control. Candie Almaguer M.D. wedding coordinator Advanced Heart Failure Program Division of Cardiovascular Medicine [facility] [email or web address] ph [phone] fax [phone] documented in this encounter [facility] 02-26-2024 Instructions Marsha Mckeon RN - 02/26/2024 9:30 AM EDT The following instructions were given today: Labs today Follow up with Dr. Almaguer as needed. Your after visit summary (AVS) is viewable in [facility] My Chart. Call RN if you have cardiac questions/concerns M-F 8 to 4:30 ; office # [phone], option 6, then option 2. Guidelines for home management: 1. Continue to monitor weight first thing each morning. 2. Report to the CHF CLINIC ([phone]) any significant weight change. Remember that weight [...] to have labs/tests run outside of the [facility] and you do not hear from us 1-2 days after they are performed, you must call us to ensure we received the results. Office fax # [phone]. No news does not necessarily mean that your tests are normal, it could mean we did not get the results. For questions/updates: please provide your name with spelling, date of and question or update All calls are prioritized and responses researched, if possible, prior to calls being returned. Call Scheduling for any appointment/procedure verification or changes [phone], option 7 or [facility] Heart Schedulers at [phone], option 1. documented in this encounter [facility] 01-23-2024 Nurse Note Jakob wrap [...] home on home oxygen supply. [facility] 01-23-2024 Miscellaneous Notes Jakob wrap [...] Pain): verbalization of pain descriptors George Styles ([id number]) PRE OPERATIVE DIAGNOSIS High output congestive heart failure [I50.83] POST OPERATIVE DIAGNOSIS Post-Op Diagnosis Codes: * High output congestive heart failure [I50.83] PROCEDURE PERFORMED Procedure(s) (LRB): LIGATION ANGIOACCESS AVF (Left) Resection of large aneurysmic vein PRIMARY CLOSURE Yes INTRAOPERATIVE FINDINGS No significant abnormalities SURGEON Surgeons and Role: * Jyoti Bryant MD, PhD - Primary ANESTHESIOLOGIST Anesthesiologist: Celena Tiwari MD; Kehinde Gutierrez MD FULL STACK NET DEVELOPER: Raheem Jasso APRN-FULL STACK NET DEVELOPER Analysis Intern Assisting: Mini Khan MD SURGICAL STAFF Charging Board Operator: Zoila Lawrence RN Relief Charging Board Operator: Marimar Saravia RN Relief Scrub: Briseyda [...] patient breathing easily. Report received from surgical consultant and report received from anesthesiology. Pt arrived [...] Axillary block. SURGEON(S): Jyoti Bryant MD, PHD GROCERY SPECIALIST: Mynor Fall MD ESTIMATED BLOOD LOSS: [...] Jyoti Bryant MD, PHD ATTENDING SHANNON/Constanza JOB: [id number] DOC: [id number] Patient has been asleep this shift. He [...] overnight coverage, Jasper Gastelum MD, via pager #[phone] Pt- George Styles. Sarah 1082. TM1. Was wondering if he can have his Melatonin order increased to 6mg. Per pt, he usually takes 8mg at home. -SAMI Duffy #[phone] Tati Charles RN Internal Medicine Daily Progress Note Patient: George Styles, 1970, [id number] Physician: Arelis Mera MD, PGY3, Pager #[phone], TM1 service Assessment/Plan: George Styles is a [...] home amlodipine 5mg CAD: non-obstructive CAD on [facility] 2018. - continue home aspirin [...] Kevin Prince MD, on rounds. Signed, Arelis M Asada, MD Mr. Styles was admitted to [address] [place] [address]. On admission to R10, from outside facility a dual RN initial assessment of skin condition was performed by Izzy Gutierrez RN and Leroy Singleton RN. Skin Assessment: Skin within defined limits:Yes Jose Score: 20 Wound [employer] Collision Estimator images obtained: No LDA Added: No Based [...] documented in this encounter [facility] 01-23-2024 Nurse Note Home Oxygen [...] at 4L of oxygen is also required.) [facility] 01-23-2024 History of Present illness [...] mg Oral Daily Kelvin Pacheco MD, MBBS systematic theology professor Transplant nephrology Surgery Post-Op Check Note [...] monitor Leonel Harris DO General Surgery Pager [phone] CM went to bedside to talk with patient. Patient states he has home oxygen through [employer]. He uses 2.5 LNC around the clock. Patient states his brother will bring a tank for discharge. Anticipate patient will discharge tomorrow AM. Brother updated. Girish Oro RN, BSN Clinical [employer] Principal Please note that I am a float case finisher and may not cover the same service every day. Please call the main Case Management office at [phone] for up-to-date coverage. Verified patients identity using [...] all questions answered to his satisfaction Leonel D Harris, DO Associated attestation - Jyoti Bryant MD, PhD - 01/22/2024 10:54 AM EST I. Jyoti Braynt MD, PhD, have independently seen and examined the patient, reviewed the labs, discussed the patient with the fellow/resident and agree with the note. Images from the original note were not included. Internal Medicine Daily Progress Note Patient: George Styles, 1970, [id number] Physician: Yury Ozuna MD, PGY1, Pager #[phone], TM1 service Assessment/Plan: George Styles is a [...] home amlodipine 5mg CAD: non-obstructive CAD on [facility] 2018. - continue home aspirin [...] the Nutrition plan outlined in the Outreach Liaison s note. DVT prophylaxis with lovenox Diet [...] in resident note. Kelvin Pacheco MD, MBBS systematic theology professor Transplant nephrology Patient seen and examined [...] Oral BID AC Kelvin Pacheco MD, MBBS systematic theology professor Transplant nephrology Images from the original note were not included. Internal Medicine Daily Progress Note Patient: George Styles, 1970, [id number] Physician: Yury Ozuna MD, PGY1, Pager #[phone], AF6 service Assessment/Plan: George Styles is a 53 [...] the Nutrition plan outlined in the Outreach Liaison s note. DVT prophylaxis with lovenox Diet [...] Refills: 0 Provider: Zuly Bruno NP [facility] [place] [place] Other Comments: Patient reported his Last Home Dose of mycophenolate and tacrolimus was on 01/15/24 at 0700. Medications that need removed from Outside Medication Reconciliation list: Please remove all medications. Please feel free to contact me with any further questions. Name: Heidy Chatman Phone #: [phone] Date/Time: 01/19/2024 12:08 PM Time Spent: 15 minutes Associated attestation - Fidelina Alarcon RPH - 01/19/2024 12:41 PM EST Department of Pharmacy Admission Medication Reconciliation Note Patient: George Styles Room/Bed: 1082/A I have reviewed the home medication list with the Embedded Systems Designer. The home medication list status is: complete. All changes to the home medication list have been updated in [facility]. Updated VP STRATEGY Med List: Prior to Admission Medications Prescriptions [...] any further questions. Name: Fidelina Angel Alarcon [facility] Phone #: [phone] Date/Time: 01/19/2024 12:41 PM Internal Medicine Daily Progress Note Patient: George Styles, 1970, [id number] Physician: Yury Ozuna MD, PGY1, Pager #[phone], ZI3 service Assessment/Plan: Acute Hypoxic Respiratory Insufficiency GARCIA, Bilateral JENESN, [...] the Nutrition plan outlined in the Outreach Liaison s note. DVT prophylaxis with lovenox Diet [...] mg Oral Daily Kelvin Pacheco MD, MBBS systematic theology professor Transplant nephrology Internal Medicine Daily Progress Note Patient: George Styles, 1970, [id number] Physician: Yury Ozuna MD, PGY1, Pager #[phone], TM4 service Assessment/Plan: Updates: - continued diuresis with [...] home amlodipine 5mg CAD: non-obstructive CAD on [facility] 2018. - continue home aspirin [...] the Nutrition plan outlined in the Outreach Liaison s note. DVT prophylaxis with lovenox Diet [...] in resident note. 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 Provided emotional and spiritual support. Patient shared about: family support, medical course Business Management Professor provided: - Supportive presence - Active listening - Validation of feelings/emotions Patient encouraged to request a welder setter resistance machine as needed. Chaplains are available in-house 24 hours a day and 7 days a week. For urgent matters in [facility], please page [phone]. If the request is not urgent, please enter a consult. Consults are responded to within 24 hours. Senior Staff Business Management Professor Angie Singh Mdiv, [facility] [place] [phone] [email or web address] On-call : callisthenics instructor Raheem: 22/06 Pager ,[facility], and Brock Hernandez Pager [phone] 01/18/24 1342 Clinical Encounter Type Visited With Patient Visit Type Introduction Pastoral Time Spent 15 min Referral Other (See Comment) (rounding) Spiritual Assessment Emotional Observation Coping well;Anxiety Hope Observation Specific hope focus Support Observation By Family Interventions Provided Active listening;Supportive presence Facilitated Verbalization of feelings;Identifying support system;Identifying Sources of spiritual well-being Explored Expectations;Treatment decisions Credit Card Clerk Education Credit Card Clerk Service Available Yes Educated Patient Outcomes Patient [...] for any potential drug interaction. Name: Fidelina DavisMOJGAN patel Phone #: [phone] Date/Time: 01/18/2024 9:56 AM Discharge Planning Patient [...] Yes Name and Contact information: Gian Styles ([phone]) Would you like to add additional adult [...] oxygen?: Yes Oxygen Provider and Contact : Nanameue Liter-Flow?: Order for oxygen use?: unknown at [...] patient on Anticoagulation? : No [id number] [place] [address] - [address] [place] [id number] Magistrate Judge Does the patient or school admissions representative express financial concerns? : No Employed?: [...] Plan 1. Identified self and role as [employer] Principal. 2. Confirmed and updated demographics and treatment team. 3. [employer] Principal will continue to follow with medical team for any other additional discharge needs. Kasandra DON RN *Please note I am float and work Thursday and Thursday every other week. Please call [phone] for assist in my absence. Internal Medicine Daily Progress Note Patient: George Styles, 1970, [id number] Physician: Yury Ozuna MD, PGY1, Pager #[phone], TM1 service Assessment/Plan: Updates: - continue diuresis [...] home amlodipine 5mg CAD: non-obstructive CAD on [facility] 2018. - continue home aspirin [...] ordered 2D echo. Kevin Prince MD, FASN Paper Bundler of Clinical Medicine [facility] documented in this encounter [facility] 01-23-2024 Plan of care note [...] Pain): verbalization of pain descriptors [facility] 01-22-2024 Hospital Discharge instructions Arelis [...] your doctor for further instructions. Please call [phone], Option 1 or [phone] to schedule your appointment with the Heart Failure Clinic. Arelis Mera MD - 01/22/2024 3:08 PM EST You can change your dressing 48 hours from the procedure The following attachments cannot be sent through Care Everywhere.Heart Failure: Avoiding Triggers (Samoan)Heart Failure: Limiting Sodium (Samoan)Pain and Pain Control ([facility]) (Samoan)documented in this encounter [facility] 01-22-2024 Surgery Postoperative evaluation and management note George Feliz Jensen ([id number]) PRE OPERATIVE DIAGNOSIS High output congestive heart failure [I50.83] POST OPERATIVE DIAGNOSIS Post-Op Diagnosis Codes: * High output congestive heart failure [I50.83] PROCEDURE PERFORMED Procedure(s) (LRB): LIGATION ANGIOACCESS AVF (Left) Resection of large aneurysmic vein PRIMARY CLOSURE Yes INTRAOPERATIVE FINDINGS No significant abnormalities SURGEON Surgeons and Role: * Jyoti Bryant MD, PhD - Primary ANESTHESIOLOGIST Anesthesiologist: Celena Tiwari MD; Kehinde Gutierrez MD FULL STACK NET DEVELOPER: Raheem Jasso APRN-FULL STACK NET DEVELOPER Analysis Intern Assisting: Mini Khan MD SURGICAL STAFF Charging Board Operator: Zoila Lawrence RN Relief Charging Board Operator: Marimar Saravia RN Relief Scrub: Briseyda Self Scrub Person: Cinda Mai RN Resident Assisting: Leonel Harris DO Fellow: Miki Mcgowan MD, MBBS COMPLICATIONS None ESTIMATED BLOOD LOSS Minimal SPECIMENS No specimen sent * No specimens in log * Jyoti Bryant MD, PhD January 22, 2024 1:34 PM [facility] Work Phone: 01-22-2024 Nurse Note Arrived to PACU assisted by anesthesiology. Connected to monitors. Turned side to side, OR linens removed, repositioned. Airway patent, patient breathing easily. Report received from surgical consultant and report received from anesthesiology. Pt arrived awake. VSS. Sats slightly low. Pulm rehab used. Sats currently 3lpm @ 93%. Pt states he uses CPAP nocturnally. A&Ox4. Nerve block left arm, elevated. [facility] 01-22-2024 Surgery Postoperative evaluation [...] Axillary block. SURGEON(S): Jyoti Bryant MD, PHD GROCERY SPECIALIST: Mynor Fall MD ESTIMATED BLOOD LOSS: [...] Jyoti Bryant MD, PHD ATTENDING SHANNON/Constanza JOB: [id number] DOC: [id number] [facility] 01-22-2024 Plan of care [...] 1939 Plan Of Care Reviewed With: patient [facility] 01-20-2024 Consult note Associated Order (s): IP CONSULT TO SURGERY - TRANSPLANT (RENAL) Images from the original note were not included. TRANSPLANT SURGERY CONSULT NOTE: Consult: 01/20/2024, 4:03 PM Transfer Table Operator: Starla Morris MD Reason for Consult: Requesting Dr Carson Bryant for AVF revision/closure given new onset high output heart failure George Styles is a 53 y.o. male CURRENT HOSPITALIZATION LOS: Admit Date: 01/16/2024 [facility] LOS: 4 days George Styles is [...] GUIDANCE 05/17/2022 Surgeon: Enzo Heart DO; Location: [facility] INTERVENTIONAL RADIOLOGY (VIR) LIVER TRANSPLANT, ORTHOTOPIC N/A 04/12/2020 Laterality: N/A; Surgeon: LU Palma; Location: [facility] SAME DAY SURGERY MAIN OR KIDNEY TRANSPLANT W/O [place] NEPHRECTOMY N/A 04/12/2020 Laterality: N/A; Surgeon: LU Palma; Location: [facility] SAME DAY SURGERY MAIN OR OTHER [...] Days Peripheral IV Line - Single Lumen 02/16/24 median cubital vein (antecubital fossa), right 20 [...] and staffed with Dr. Mcgowan fellow medical science liaison Thank you, Starla Morris MD Associated attestation - Jyoti Bryant MD, PhD - 01/22/2024 10:54 AM EST Beata Bryant MD, PhD, have independently seen and examined the patient, reviewed the labs, discussed the patient with the fellow/resident and agree with the note. [facility] [facility] Work Phone: 01-20-2024 Consult note Associated Order (s): IP CONSULT TO SURGERY - TRANSPLANT (RENAL) Images from the original note were not included. TRANSPLANT SURGERY CONSULT NOTE: Consult: 01/20/2024, 4:03 PM Transfer Table Operator: Starla Morris MD Reason for Consult: Requesting Dr Carson Bryant for AVF revision/closure given new onset high output heart failure George Styles is a 53 y.o. male CURRENT HOSPITALIZATION LOS: Admit Date: 01/16/2024 [facility] Hospital LOS: 4 days George [...] DAY SURGERY MAIN OR KIDNEY TRANSPLANT W/O [place] NEPHRECTOMY N/A 04/12/2020 Laterality: N/A; Surgeon: LU [...] and staffed with Dr. Mcgowan fellow medical science liaison Thank you, Starla Morris MD Associated attestation [...] DAY SURGERY MAIN OR KIDNEY TRANSPLANT W/O [place] NEPHRECTOMY N/A 04/12/2020 Laterality: N/A; Surgeon: LU [...] (order for outpatient) Please SecureChat or Call ([phone]) for any questions. Await attending attestation for final recommendations. Hank Noel MD Division of Gastroenterology, Hepatology, and Nutrition Clinical Fellow, PGY-5 Pager: [phone] For urgent/stat calls or consults 5pm to 7am, please page the on-call GI fellow on QGenda. [facility]--> Internal Medicine--> Gastroenterology, Hepatology, & Nutrition--> 1st Call Janae Hatfield For urgent/stat calls or consults 7am to 5pm during the weekend, please page the on-call GI fellow on QGenda. [facility]--> Internal Medicine--> Gastroenterology, Hepatology, & Nutrition--> All Hep & East Wknd Cons Fel Day For follow up questions regarding this patient 7am to 5pm during the weekday, contact the Hepatology consults fellow or CARLOS A on Health Newsa. [facility]--> Internal Medicine--> Gastroenterology, [...] Estrada MD, MSc documented in this encounter [facility] 01-19-2024 Nurse Note 01/19/24 0900 [...] rest, 95-96% when talking/moving. Paulette Cordon RN [facility] 01-19-2024 Nurse Note Paged overnight coverage, Jasper Gastelum MD, via pager #[phone] Pt- George Styles. Sarah [phone]. TM1. Was wondering if he can have his Melatonin order increased to 6mg. Per pt, he usually takes 8mg at home. -SAMI Duffy #[phone] Tati Charles RN [facility] 01-18-2024 Consult note Associated Order (s): IP CONSULT TO HEPATOBILIARY [facility] OS Main Hepatology Consult WebExchange --> IM Consult Serv [facility] --> [facility] Main Hepatology consult service [...] GUIDANCE 05/17/2022 Surgeon: Enzo Heart DO; Location: [facility] INTERVENTIONAL RADIOLOGY (VIR) LIVER TRANSPLANT, ORTHOTOPIC N/A 04/12/2020 Laterality: N/A; Surgeon: LU Palma; Location: [facility] SAME DAY SURGERY MAIN OR KIDNEY TRANSPLANT W/O [place] IN [place] NEPHRECTOMY N/A 04/12/2020 Laterality: N/A; Surgeon: LU Palma; Location: [facility] SAME DAY SURGERY MAIN OR OTHER [...] (order for outpatient) Please SecureChat or Call ([phone]) for any questions. Await attending attestation for final recommendations. Hank Noel MD Division of Gastroenterology, Hepatology, and Nutrition Clinical Fellow, PGY-5 Pager: [phone] For urgent/stat calls or consults 5pm to 7am, please page the on-call GI fellow on QGenda. [facility]--> Internal Medicine--> Gastroenterology, Hepatology, & Nutrition--> 1st Call Fel Alysia For urgent/stat calls or consults 7am to 5pm during the weekend, please page the on-call GI fellow on QGenda. [facility]--> Internal Medicine--> Gastroenterology, Hepatology, & Nutrition--> All [...] outpatient) Michael Estrada MD, MSc [facility] Work Phone: 01-16-2024 Plan of care note Internal Medicine Daily Progress Note Patient: George Styles, 1970, [id number] Physician: Arelis Mera MD, PGY3, Pager #[phone], TM1 service Assessment/Plan: George Styles is a [...] home amlodipine 5mg CAD: non-obstructive CAD on [facility] 2018. - continue home aspirin [...] MD, on rounds. Signed, Arelis Mera MD [facility] 01-16-2024 Nurse Note Mr. Styles was admitted to [address] [place] [address]. On admission to [facility], from outside facility a dual RN initial assessment of skin condition was performed by Izzy Gutierrez RN and Leroy Singleton RN. Skin Assessment: Skin within defined limits:Yes Jose Score: 20 [employer] Collision Estimator images obtained: No LDA Added: No Based [...] room closest to nurses station when available. [facility] 01-16-2024 History and physical note Images from the original note were not included. Internal Medicine Admission History & Physical Patient: George Styles, 1970, [id number] Physician: Timothy Joseph MD, PGY1, Pager #[phone], TM 1 service Date of face to [...] GUIDANCE 05/17/2022 Surgeon: Enzo Heart DO; Location: [facility] INTERVENTIONAL RADIOLOGY (VIR) LIVER TRANSPLANT, ORTHOTOPIC N/A 04/12/2020 Laterality: N/A; Surgeon: LU Palma; Location: [facility] SAME DAY SURGERY MAIN OR KIDNEY TRANSPLANT W/O [place] NEPHRECTOMY N/A 04/12/2020 Laterality: N/A; Surgeon: LU Palma; Location: [facility] SAME DAY SURGERY MAIN OR OTHER [...] itraconazole Fax results to: Dr. White - [phone] Transplant Neph - [phone] Gabapentin 400 MG capsule Sig: Take 1 [...] erythema: Skin: No jaundice or rash Neuro: dry cell tester 3-7, 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 Strength [...] home amlodipine 5mg CAD: non-obstructive CAD on [facility] 2019. - continue home aspirin 81mg daily Gout: continue home allopurinol 200mg daily BPH: continue home flomax 0.4mg daily Complexity. Obesity Body mass index is 32.8 kg/m . - Follow with PCP for dietary and lifestyle modifications. Any conditions listed below are present on admission unless otherwise specified. . DVT prophylaxis with lovenox Disposition: admitted to [facility] Code status is Full Staffed with [...] Pierson, Luisa Steven, Renee Rivera, Daisha Max Flask Cleaner: José Miguel Garnica All Txt: 04/13/2020 (Kidney), [...] results found for: CYCLOSPORIN , CYCLOSPORIN2 , [id number] , CYCLORAND No results found for: SIROLIMUS [...] request in chart. Kevin Prince MD Pager [phone] [facility] 01-16-2024 History and physical note Images from the original note were not included. Internal Medicine Admission History & Physical Patient: George Styles, 1970, [id number] Physician: Timothy Joseph MD, PGY1, Pager #[phone], TM 1 service Date of face to [...] GUIDANCE 05/17/2022 Surgeon: Enzo Heart DO; Location: [facility] INTERVENTIONAL RADIOLOGY (VIR) LIVER TRANSPLANT, ORTHOTOPIC N/A 04/12/2020 Laterality: N/A; Surgeon: LU Palma; Location: [facility] SAME DAY SURGERY MAIN OR KIDNEY TRANSPLANT W/O [place] IN [place] NEPHRECTOMY N/A 04/12/2020 Laterality: N/A; Surgeon: LU Palma; Location: [facility] SAME DAY SURGERY MAIN OR OTHER [...] itraconazole Fax results to: Dr. White - [phone] Transplant Neph - [phone] Gabapentin 400 MG capsule Sig: Take 1 [...] erythema: Skin: No jaundice or rash Neuro: dry cell tester 3-7, 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 Strength [...] home amlodipine 5mg CAD: non-obstructive CAD on [facility] 2018. - continue home aspirin 81mg daily Gout: continue home allopurinol 200mg daily BPH: continue home flomax 0.4mg daily Complexity. Obesity Body mass index is 32.8 kg/m . - Follow with PCP for dietary and lifestyle modifications. Any conditions listed below are present on admission unless otherwise specified. . DVT prophylaxis with lovenox Disposition: admitted to 1 Code status is Full Staffed with Timothy [...] Pierson, Luisa Steven, Renee Rivera, Daisha Max Flask Cleaner: José Miguel Garnica All Txt: 04/13/2020 (Kidney), [...] results found for: CYCLOSPORIN , CYCLOSPORIN2 , [id number] , CYCLORAND No results found for: SIROLIMUS [...] request in chart. Kevin Prince MD Pager [phone] documented in this encounter [facility] 01-12-2024 History of Present illness [...] Prograf 0.2 MG Contact Info: Specialty ([place]) [phone] [facility] [phone] [facility] [phone] Raheem [phone] Bedside Delivery ([facility]) [phone] [facility] RX OUTREACH ADVANCED: Call Information: Date and Time of Contact: 01/25/2024 10:23 AM Method of Contact: By Phone Contact Type: Prescriptions Contactor: [facility] Contactee: Patient Contact Outcome: Left message (prograf myco) Contact Info: Specialty ([place]) [phone] [facility] [phone] [facility] [phone] Raheem [phone] Bedside Delivery ([facility]) [phone] documented in this encounter [facility] 01-12-2024 History of Present illness [...] Name: Prograf 0.2 MG Contact Info: Specialty ([place]) [phone] [facility] [phone] [facility] [phone] Raheem [phone] Bedside Delivery ([facility]) [phone] [facility] RX OUTREACH ADVANCED: Call Information: Date and Time of Contact: 01/25/2024 10:23 AM Method of Contact: By Phone Contact Type: Prescriptions Contactor: [facility] Contactee: Patient Contact Outcome: Left message (prograf myco) Contact Info: Specialty ([place]) [phone] [facility] [phone] [facility] [phone] [facility] [phone] Bedside Delivery ([facility]) [phone] [facility] RX OUTREACH ADVANCED: Call Information: Date and Time of Contact: 01/27/2024 10:19 AM Method of Contact: By Phone Contact Type: Prescriptions Contactor: [facility] Contactee: Patient Contact Outcome: Left message (myco prograf) Contact Info: Specialty ([place]) [phone] [facility] [phone] [facility] [phone] Raheem [phone] Bedside Delivery ([facility]) [phone] documented in this encounter [facility] 01-12-2024 History of Present illness [...] Prograf 0.2 MG Contact Info: Specialty ([place]) [phone] [facility] [phone] [facility] [phone] Raheem [phone] Bedside Delivery ([facility]) [phone] [facility] RX OUTREACH ADVANCED: Call Information: Date and Time of Contact: 01/25/2024 10:23 AM Method of Contact: By Phone Contact Type: Prescriptions Contactor: [facility] Contactee: Patient Contact Outcome: Left message (prograf myco) Contact Info: Specialty ([place]) [phone] [facility] [phone] [facility] [phone] Raheem [phone] Bedside Delivery ([facility]) [phone] [facility] RX OUTREACH ADVANCED: Call Information: Date and Time of Contact: 01/27/2024 10:19 AM Method of Contact: By Phone Contact Type: Prescriptions Contactor: [facility] Contactee: Patient Contact Outcome: Left message (myco prograf) Contact Info: Specialty ([place]) [phone] [facility] [phone] [facility] [phone] Raheem [phone] Bedside Delivery ([facility]) [phone] [facility] RX OUTREACH ADVANCED: Call Information: Date and Time of Contact: 02/01/2024 3:22 PM Contact Type: Prescriptions Contactor: [facility] Contactee: Patient Contact Outcome: Left message Shipping/Pickup: Medication Name: Mycophenolate 360mg and Prograf 0.2mg Pack Contact Info: Specialty ([place]) [phone] [facility] [phone] [facility] [phone] Raheem [phone] Bedside Delivery ([facility]) [phone] documented in this encounter [facility] 01-06-2024 History of Present illness [...] wanted to send him to [facility] neurology but it is out [...] I have advised pt to contact insurance [employer] to see if they can provide a [...] 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) documented in this encounter [facility] 10-06-2023 History of Present illness Narrative [...] ; Prograf 0.2 MG Contact Info: Specialty ([place]) [phone] Jakob [phone] [facility] [phone] Raheem [phone] Bedside Delivery ([facility]) [phone] [facility] RX OUTREACH ADVANCED: Call Information: Date and Time of Contact: 10/23/2023 2:00 PM Method of Contact: By Phone Contact Type: Prescriptions Contactor: [facility] Contactee: Patient Contact Outcome: Left message and Call back later Shipping/Pickup: Medication Name: Mycophenolate 360mg and Prograf 0.2mg Contact Info: Specialty ([place]) [phone] [facility] [phone] [facility] [phone] Raheem [phone] Bedside Delivery ([facility]) [phone] documented in this encounter [facility] 09-11-2023 Miscellaneous Notes Pt discharged [...] the oxygen during the night. pt will pickle solution maker his oxygen from [facility], 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 This [...] Patient seen ambulating in the velazquez with WAITER/WAITRESS FORMAL. Patient was mildly short of breath on [...] & HR 114. Messaged Mainor Loomis, via [email or web address] secure chat, Temp 100.8. His tylenol order [...] short period of time. 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 Episode [...] Na/K+/Phos/Mg/Ca: 136/4.1/--/1.6/-- (09/03 402) Bun/Creat/Cl/CO2/Glucose: 17/1.20/104/24/112 (09/03 040) Relevant Microbiologic Data: CMV, EBV, BK, RVP, [...] Critical Care Medicine Message Mainor Loomis, via [email or web address] secure chat, Good evening, just an FYI, [...] short period of time. 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 This [...] [address] Loera here also (on site wastewater systems technician) Dr. Diaz aware of pt's increased [...] Medicine-Pediatrics, PGY-2 Mr. Styles was admitted to [address] [place] [address]. On admission to [facility], from home a [...] documented in this encounter [facility] 09-11-2023 History of Present illness Narrative Provided follow-up emotional and spiritual support. Patient shared about rosemary of discharge and looking forward to seeing family Business Management Professor provided: - Supportive presence - Active listening - Validation of feelings/emotions Patient encouraged to request a welder setter resistance machine as needed. Chaplains are available in-house 24 hours a day and 7 days a week. For urgent matters in [facility], please page [phone]. If the request is not urgent, please enter a consult. Consults are responded to within 24 hours. Senior Staff Business Management Professor Angie Singh Mdiv, [facility] Kirk [phone] [email or web address] 22/06 On-call Kirk: [phone] 22/06 Pager ,BS, and Brock Lewis Raheem Pager [phone] 09/11/23 1430 Clinical Encounter Type Visited With Patient Visit Type Follow-up Pastoral Time Spent 15 min Referral Other (See Comment) (rounding) Spiritual Assessment Spiritual Observation Spirituality helpful Emotional Observation Coping well Hope Observation Specific hope focus Support Observation By Family Interventions Provided Active listening;Supportive presence Facilitated Verbalization of feelings Explored Expectations Credit Card Clerk Education Credit Card Clerk Service Available Yes Educated Patient Plan of Care Continue Visiting PRN Images from the original note were not included. [facility] ([facility]) Note: Non-Verbal Med Rec [facility] received the following discharge prescription(s): Total cost is $0. I have reviewed the Discharge Rx Reconciliation Report. The discharge prescription(s) will be delivered to the patient on 09/11/2023. Dimitrios Gurrola [facility],PharmD Specialty ([place]) [phone] Jakob [phone] Jakob Bedside Delivery [phone] [facility] [phone] [facility] Bedside Delivery [phone] Raheem [phone] Raheem Bedside Delivery [phone] [place] [phone] Jolene [phone] Internal Medicine Daily Progress Note Patient: George Styles, 1970, [id number] Physician: Evan Kelly MD, PGY-1, TM1 service Subjective/Interval History: Patient continues to require oxygen overnight for desaturations. With insurance limitations, only accepting agency to provide home oxygen backed out. After calling them to discuss, Lynn stated she would be willing to have patient drive to their facility to pickle solution maker supplies, however they close at 5pm. 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 Does [...] losartan 50mg BID CAD: non-obstructive CAD on [facility] 2018. - continue home aspirin [...] 5.05 (H) 11/19/2018 Kevin Prince MD, SERA Paper Bundler of Clinical Medicine [facility] Images from the original note were not included. Final Discharge Planning and Transportation Final Discharge Planning Discharge Disposition: Home Services at Discharge: Outpatient clinical services (ie: lab draws, transfusions, injectables) (Home Oxygen by [facility]) Selected Continued Care - Admitted Since 08/28/2023 Durable Medical Equipment Coordination complete. Service Provider Selected Services Address Phone Fax Patient Preferred [facility] Durable Medical Equipment [address] [facility] [address] Internal Comment last updated by Lora Lawrence RN 09/10/2023 1334 Correct contact information: [address] [place] [address] [place] [address] clerical receptionist- you do not need to call at discharge, I already notified the company. Addendum 1521 [facility] notified this CM they are out of patient's insurance area and will not be able to service this patient at time of discharge. Provider notified. Addendum 0838 Dr Kelly called [facility] spoke to Lynn and she said they are willing to accept patient if the patient would drive to the [place] office and pickle solution maker the supplies. Patient is willing to [...] Lora Colón RN, MSN, CCM, CMCN Clinical [employer] Principal- [facility] Transplant #[phone] Department of Pharmacy Transplant Note Patient: George [...] dose adjustment Name: Matt Kramer RPh,Frankie Phone: [phone] Date/Time: 09/10/2023 11:33 AM This CM sent referral via Maven7 for O2 concentrator to 4 agencies Start date today Timer set for 1330 [employer] [facility] [employer] Addendum 1332 One accepting company reserved in [place] [address] [place] [address] [place] [address] Lora Colón RN, MSN, CCM, CMCN Clinical [employer] Principal- [facility] Transplant #[phone] NUTRITION FOLLOW-UP Nutrition Plan of Care: 1. Continue current diet order. 2. No oral supplements warranted at this time. 3. Monitor for significant weight changes. Monitor GI, skin integrity. 4. Monitor and encourage po intakes with goal of average po being 75-100%. 5. field contact technician to follow. ___ Met with patient [...] Will continue to monitor. Cecilia Mattson DTR Pager:[phone] Transplant Infectious Disease (Team 3) Progress Note [...] sign off. Please Epic message or page [phone] with questions. 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 - continue home aspirin [...] to follow. Please Epic message or page [phone] with questions. 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 - continue home aspirin [...] 5.05 (H) 11/19/2018 Kevin Prince MD, SERA Paper Bundler of Clinical Medicine [facility] Transplant Infectious Disease [...] to follow. Please Epic message or page [phone] with questions. Ann Marie Haskins MD PGY-4, [...] he continues to improve. Please message via [email or web address] secure chat or page with any questions or concerns. Evan White DO Paper Bundler Division of Infectious Disease Transplant Infectious Disease [...] to follow. Please Epic message or page [phone] with questions. vEan White DO Transplant Infectious Diseases Images from the original note were not included. Pulmonary/Critical Care Medicine Daily Progress Note Reason for Consultation: bronch for infectious workup Requesting Physician: Dr. Prince CURRENT HOSPITALIZATION: Admit Date: 08/28/2023 [facility] Hospital LOS: 9 days Impression [...] and interpreted reviewed the radiographic data in [email or web address]. Internal Medicine Daily Progress Note Patient: George Styles, 1970, [id number] Physician: Evan Kelly MD, PGY-1, TM1 service [...] for clinical situation. 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 - continue home aspirin [...] 5.05 (H) 11/19/2018 Kevin Prince MD, FASN Paper Bundler of Clinical Medicine [facility] Images from the original note were not included. Pulmonary/Critical Care Medicine Daily Progress Note Reason for Consultation: bronch for infectious workup Requesting Physician: Dr. Prince CURRENT HOSPITALIZATION: Admit Date: 08/28/2023 [facility] Hospital LOS: 8 days Impression [...] and interpreted reviewed the radiographic data in [facility]. Acute Occupational Therapy Evaluation Prior to Admission [...] Assessment: Transfer Assessment: Sit to Stand Transfer [place] Level: Sit->Stand: independent Skilled Intervention/Details: Sit->Stand: x1 from EOB, x1 from toilet Stand to Sit Transfer [place] Level: Stand->Sit: independent Skilled Intervention/Details: Stand->Sit: x1 to toilet, x1 to EOB Functional Mobility: Functional Mobility Osborne Level: Functional Mobility/Gait: independent Ambulation Distance (Feet): 20 Skilled Intervention/Details - Functional Mobility/Gait: pt performed functional mobility to/from RR w/ no overt LOB Outcome Score(s): CURRENT [facility] Daily Activity Inpatient Short Form Putting on/Taking Off Lower Body Clothin - A Little Assistance Bathin - A Little Assistance Toiletin - A Little Assistance Putting on/Taking Off Upper Body Clothin - No Assistance Groomin - No Assistance Eatin - No Assistance [facility]RENT [facility] Activity Raw Score: 21 [facility]RENT [facility] Activity Functional Limitation/Modifier: 32.79% Currently Impaired in [...] Intact Mobility Assessment: Supine to Sit Mobility Osborne Level: Supine->Sit: modified independence Bed Features/Set-up: Supine->Sit: Head of bed elevated Sit to Supine Mobility Osborne Level: Sit->Supine: not tested Balance: Sitting Balance [...] environment. Transfer Assessment: Sit to Stand Transfer Osborne Level: Sit->Stand: independent Skilled Intervention/Details: Sit->Stand: From EOB x 2 without difficulty. Stand to Sit Transfer Osborne Level: Stand->Sit: independent Assistive Device: Stand->Sit: armed chair Skilled Rationale: Verbal cues, Positioning Gait/Functional Mobility: Gait Assessment Osborne Level: Gait: stand-by assist Assistive Device: Gait: rollator Ambulation Distance (Feet): 400 Gait Deviations Identified: decreased grace, decreased gait speed Gait Skilled Rationale: verbal, upright posture, increase step length, increase foot clearance Skilled Intervention/Details - Gait: Reasonable foot clearnce without loss of balance but endorsing dyspnea as 6-7/10. Stairs: Stairs Assessment Osborne Level: Stair Negotiation: not tested Outcome Score(s): [facility] Basic Mobility Inpatient Short Form Turning over in bed: 4 - No Assistance Sitting/standing from chair: 4 - No Assistance Moving from lying on back to sittin - No Assistance Moving to and from bed to chair: 3 - A Little Assistance Walk in hospital room: 3 - A Little Assistance Climbing 3-5 steps with a railin - A Little Assistance [facility]RENT [facility] Mobility Raw Score: 21 CURRENT [facility] Mobility Functional Limitation/Modifier: 28.97% Currently Impaired in [...] Daily Progress Note Patient: George Styles, 1970, [id number] Physician: Evan Kelly MD, PGY-1, TM1 service [...] 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 - continue home aspirin [...] 5.05 (H) 11/19/2018 Kevin Prince MD, SERA Paper Bundler of Clinical Medicine [facility] Transplant Infectious [...] Once per day on Thu Wed Thu [Held by provider] Tacrolimus 0.5 mg [...] to follow. Please Epic message or page [phone] with questions. Evan White, DO Transplant Infectious Diseases Images from the original note were not included. Internal Medicine Daily Progress Note Patient: George Styles, 1970, [id number] Physician: Evan Kelly MD, PGY-1, TM1 service [...] the team on rounds. 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 - continue home aspirin [...] P 450 system Kevin Prince MD, SERA Paper Bundler of Clinical Medicine [facility] ERT [...] MD, PhD Internal Medicine and Pediatrics PGY-3 [facility] Brief plan of care update: Called [...] MD, PhD Internal Medicine and Pediatrics PGY-3 [facility] Transplant Infectious Disease (Team 3) Progress [...] to follow. Please Epic message or page [phone] with questions. 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 His council kidney disease was noted to be presumed [...] 2/2 renal function CAD: non-obstructive CAD on [facility] 2018. 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 His council kidney disease was noted to be presumed [...] 2/2 renal function CAD: non-obstructive CAD on [facility] 2018. - continue home aspirin [...] 5.05 (H) 11/19/2018 Kevin Prince MD, SERA Paper Bundler of Clinical Medicine [facility] Progression of Care [...] Lora Colón RN, MSN, CCM, CMCN Clinical [employer] Principal- R10 Transplant #[phone] Made introductory visit with patient. Provided emotional and spiritual support. Patient shared about: - Source of Rosemary: Camping/Fishing/Family - Spirituality/Yarsanism Affiliation: raised Jew - Family Support/history - Experience with illness/hospital course - Hopes for healing/future Business Management Professor provided: - Supportive presence - Active listening - Validation of feelings/emotions - Pledged prayer Patient encouraged to request a welder setter resistance machine as needed. Chaplains are available in-house 24 hours a day and 7 days a week. For urgent matters in [facility], please page [phone]. If the request is not urgent, please enter a consult. Consults are responded to within 24 hours. Senior Staff Business Management Professor Angie Singh Mdiv, [facility] Kirk [phone] [email or web address] 22/06 On-call Kirk: [phone] 22/06 Pager ,[facility], and Brock Hernandez Pager [phone] 09/02/23 1119 Clinical Encounter Type Visited With Patient Visit Type Introduction Pastoral Time Spent 15 min Referral Other (See Comment) (rounding) Spiritual Assessment Spiritual Observation Spirituality helpful Emotional Observation Coping well Hope Observation Specific hope focus Support Observation By Family Interventions Provided Active listening;Supportive presence Facilitated Verbalization of feelings Explored Expectations Credit Card Clerk Education Credit Card Clerk Service Available Yes Educated Patient Outcomes Patient Outcomes Reduced distress Plan of Care Continue Visiting PRN NUTRITION RISK SCREENING NOTE Nutrition Plan of Care: 1. Continue current diet order. 2. No oral supplements warranted at this time. 3. Monitor for significant weight changes. Monitor GI and skin integrity. 4. Monitor and encourage po intakes with goal of average po being 100%. 5. field contact technician to follow. George Styles is a 53 y.o. 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 His council kidney disease was noted to be presumed hepatorenal syndrome. His post-transplant course was noteworthy for nephrostomy tube (05/17/2022-09/10/2022) due to concern for ureteral stone. He presents as a direct admission for fever, cough, for infectious workup. Pt unavailable and information obtained via chart review Purse Framer Screening Pt's appetite is good. Pt with [...] with meds Food Allergies reviewed:Shellfish Cultural or Yarsanism Restrictions/Preferences: None GI: Last Bowel Movement: 09/01/23 [...] time. Will continue to monitor. RHIANNON BirminghamR Pager:[phone] Internal Medicine Daily Progress Note Patient: George Styles, 1970, [id number] Physician: Evan Kelly MD, PGY-1, TM1 service [...] s/p combined Liver-kidney transplant on 04/13/20. His council kidney disease was noted to be presumed [...] / renal function CAD: non-obstructive CAD on [facility] 2018. - continue home aspirin [...] as outlined above. Kevin Prince MD Pager [phone] Summary: Pharmacy Med Rec Department of Pharmacy [...] Provider: Zuly Bruno NP Pharmacy: [facility] Other Comments: Patient reported his Last Home Dose of mycophenolate & tacrolimus was on 08/28/23 at 0900. Patient reported he was taking Bactrim and benzonatate for fevers and a cough he was having. Please feel free to contact me with any further questions. Name: Heidy Chatman Phone #: [phone] Date/Time: 09/01/2023 2:01 PM Time Spent: 15 minutes Associated attestation - Matt Kramer RPh,PharmAbdoul - 09/01/2023 2:28 PM EDT Department of Pharmacy Admission Medication Reconciliation Note Patient: George Styles Room/Bed: 1062/A I have reviewed the home medication list with the Embedded Systems Designer. All changes to the home medication list have been updated in IHIS. Updated VP STRATEGY Med List: Prior to Admission Medications Prescriptions [...] questions. Name: Matt Kramer RPh,PharmD Phone #: [phone] Date/Time: 09/01/2023 2:28 PM Transplant Infectious Disease [...] crypto antigen, EBV PCR -follow pending histo, [id number] labs These recommendations were discussed with the primary team. Transplant ID (Team 3) will continue to follow. Please Epic message or page [phone] with questions. Evan White DO Transplant Infectious Diseases Internal Medicine Daily Progress Note Patient: George Styles, 1970, [id number] Physician: Evan Kelly MD, PGY-1, TM1 service [...] s/p combined Liver-kidney transplant on 04/13/20. His council kidney disease was noted to be presumed [...] 2/2 renal function CAD: non-obstructive CAD on [facility] 2018. - continue home aspirin [...] 5.05 (H) 11/19/2018 Kevin Prince MD, SERA Paper Bundler of Clinical Medicine [facility] Discharge Planning Patient [...] Yes Name and Contact information: Gian Styles ([phone]) Reviewed and Updated in Demographics? : Yes [...] patient on Anticoagulation? : No [id number] [place] [address] - [address] [facility] [address] Magistrate Judge Does the patient or school admissions representative express financial concerns? : No Employed?: [...] Plan 1. Identified self and role as [employer] Principal. 2. Confirmed and updated demographics and treatment team. 3. [employer] Principal will continue to follow with medical team/pt for any other additional discharge needs. Kasandra DON RN [facility] [phone] *Please note I am float CM and work Thursday and Thursday every other week. Please call [phone] for assist in my absence. Internal Medicine Daily Progress Note Patient: George Styles, 1970, [id number] Physician: Evan Kelly MD, PGY-1, TM1 service [...] Device: nasal cannula (08/30/23727) Flow (L/min): 3 (08/30/23 021) Gen: Alert, Awake, NAD, tired-appearing Eyes: EOMI, [...] s/p combined Liver-kidney transplant on 04/13/20. His council kidney disease was noted to be presumed [...] 2/2 renal function CAD: non-obstructive CAD on [facility] 2018. - continue home aspirin [...] CREATSERUM 5.05 (H) 11/19/2018 Kevin Prince MD, ESRA Paper Bundler of Clinical Medicine [facility] Internal Medicine Daily Progress Note Patient: George Styles, 1970, [id number] Physician: Laurel Serrano MD, PhD, PGY-3, TM1 [...] s/p combined Liver-kidney transplant on 04/13/20. His council kidney disease was noted to be presumed [...] losartan 50mg BID CAD: non-obstructive CAD on [facility] 2018. - continue home aspirin 81mg daily, atorvastatin 20mg daily Gout: continue home allopurinol 200mg daily BPH: continue home flomax 0.4mg daily DVT PPX: SQH Code Status: Full Code Disposition: Pending clinical course. Anticipate eventual discharge home. Discussed with team and attending, Kevin Pirnce MD, on rounds. Signed, Laurel Serrano MD, PhD documented in this encounter [facility] 09-10-2023 Hospital Discharge instructions Laurel [...] a sleep doctor. You will need to pickle solution maker the oxygen concentrator when you leave [...] foods. documented in this encounter [facility] 09-01-2023 Consult note Associated Order (s): IP CONSULT TO PULMONOLOGY Pulmonary Medicine Inpatient Consultation Reason for Consultation: bronch for infectious workup Requesting Physician: Dr. Prince Pulmonary Attending Physician: Dr. Diaz CURRENT HOSPITALIZATION: Admit Date: 08/28/2023 [facility] Hospital LOS: 4 days Impression/Recommendations: [...] Recommendations: - Plan to bronch tomorrow morning. NPO@OK, order placed - would repeat HIV, last [...] short period of time. 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 Other histories as documented in [...] ill contacts. He traveled to [place] to [facility] in May. REVIEW OF SYSTEMS [...] GUIDANCE 05/17/2022 Surgeon: Enzo Heart DO; Location: [facility] INTERVENTIONAL RADIOLOGY (VIR) LIVER TRANSPLANT, ORTHOTOPIC N/A 04/12/2020 Laterality: N/A; Surgeon: LU Palma; Location: [facility] SAME DAY SURGERY MAIN OR KIDNEY TRANSPLANT W/O [place] NEPHRECTOMY N/A 04/12/2020 Laterality: N/A; Surgeon: LU Palma; Location: [facility] SAME DAY SURGERY MAIN OR OTHER [...] Alamo MD I can be reached via [email or web address] secure message (preferred) or Pager #[phone] documented in this encounter [facility] 08-28-2023 History and physical note Images from the original note were not included. Internal Medicine Admission History & Physical Patient: George Styles, 1970, [id number] Physician: Aric Turner MD, PGY1, Pager #[phone], service Date of face to face patient [...] So he went to see the transplant ruby on rails developer. He was found elevated Cr and asked [...] Appetite is ok now. Urine is about 8285-2949 ml every day. Stool every day, no [...] GUIDANCE 05/17/2022 Surgeon: Enzo Heart DO; Location: [facility] INTERVENTIONAL RADIOLOGY (VIR) LIVER TRANSPLANT, ORTHOTOPIC N/A 04/12/2020 Laterality: N/A; Surgeon: LU Palma; Location: [facility] SAME DAY SURGERY MAIN OR KIDNEY TRANSPLANT W/O [place] NEPHRECTOMY N/A 04/12/2020 Laterality: N/A; Surgeon: LU Palma; Location: [facility] SAME DAY SURGERY MAIN OR OTHER [...] s/p combined Liver-kidney transplant on 04/13/20. His council kidney disease was noted to be presumed [...] Urinary histoplasmosis - PJP, candid PCR - Transfer Table Operator transplant ID Acute Kidney Injury with [...] losartan 50mg BID CAD: non-obstructive CAD on [facility] 2018. - continue aspirin 81mg [...] Pierson, Luisa Steven, Renee Rivera, Daisha Max Flask Cleaner: José Miguel Garnica All Txt: 04/13/2020 (Kidney), [...] results found for: CYCLOSPORIN , CYCLOSPORIN2 , [id number] , CYCLORAND No results found for: SIROLIMUS [...] Rest as above. Kevin Prince MD Pager [phone] documented in this encounter [facility] 08-28-2023 History of Present illness Narrative Images from the original note were not included. 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 Flask Cleaner: Anayeli Burt Date of Liver Transplant: 04/13/2020 (Kidney), 04/13/2020 (Liver) 3 years 4 months post Liver/Kidney Transplant Primary Disease: Hypertensive Nephrosclerosis Transplant Manager Statistics: Erma Roe/ Daisha Max Primary Care physician: [...] faMOTIdine === None Specified Preferred Lab: [facility] Change in lab frequency / new order [...] 12 hours. ADDITIONAL INFORMATION: None Specified, [id number] [place] [address] - [address] [facility] [address] [facility] [address] [place] [address] [facility][id number] [place] [address] [address] [facility] [address] [facility] [address] [facility] [address], [address] [facility] [address] ROS and SCREEN: Chest Pain: negative Cough: [...] PHYSICIAN: I saw George Styles at the [facility] on 08/28/2023. Patient is a 53 y.o. 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 Steve Munoz MD ski maker wood Division of Nephrology [facility] documented in this encounter [facility] 08-28-2023 Instructions Mainor Busby RN - 08/28/2023 2:15 PM EDT - Admission for fevers, cough, and night sweats documented in this encounter [facility] 08-19-2023 History of Present illness Narrative [facility] OUTREACH ADVANCED: Call Information: Date and Time of Contact: 08/19/2023 2:52 PM Method of Contact: By Phone Contact Type: Prescriptions Contactor: [facility] OP Contactee: Patient Shipping/Pickup: Medicare B Refill?: No Medication Name: Tacro 0.5mg Delivery Method: Air Delivery Location: Home Signature Required: No Mailing/Pickup Date: 08/25/2023 Shipping Address: [address] [place] [address] Contact Info: Specialty ([place]) [phone] [facility] [phone] [facility] [phone] Raheem [phone] Bedside Delivery ([facility]) [phone] documented in this encounter [facility] 06-12-2023 History of Present illness Narrative Images from the original note were not included. George Styles is a 53 y.o. 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 No longer follows with a local ruby on rails developer. History of Present Illness: Since George was [...] and lab results. Rebeca Gutierrez MSN, RN, NURSE TRANSITIONAL-BC, CCTN Certified Nurse Practitioner Comprehensive Transplant Center [facility] [address] [facility] [phone] documented in this encounter [facility] 06-12-2023 Instructions JEANNA Hess - 06/12/2023 3:00 PM EDT No change in immunosuppression. documented in this encounter [facility] 06-10-2023 History of Present illness Narrative [facility] OUTREACH ADVANCED: Call Information: Method of Contact: By Phone Contact Type: Prescriptions Contactor: [facility] OP Contactee: Patient Contact Outcome: Left message Shipping/Pickup: Medication Name: Mycophenolate sod 180 mg Contact Info: Specialty ([place]) [phone] [facility] [phone] [facility] [phone] Raheem [phone] Bedside Delivery ([facility]) [phone] [facility] RX OUTREACH ADVANCED: Call Information: Date and Time of Contact: 06/12/2023 9:43 AM Method of Contact: By Phone Contact Type: Prescriptions Contactor: [facility] Contactee: Patient Contact Outcome: Left message and Follow-up Shipping/Pickup: Medicare B Refill?: No Medication Name: Myco 180 Contact Info: Specialty ([place]) [phone] [facility] [phone] [facility] [phone] Raheem [phone] Bedside Delivery ([facility]) [phone] [facility] OP RX OUTREACH ADVANCED: Call Information: Date and Time of Contact: 06/12/2023 10:08 AM Method of Contact: By Phone Contact Type: Prescriptions Contactor: [facility] Contactee: Patient Shipping/Pickup: Medicare B Refill?: No Medication Name: Mycophenolate 180mg DR Delivery Method: Air Delivery Location: Home Signature Required: No Mailing/Pickup Date: 06/17/2023 Shipping Address: [address] [place] [address] Contact Info: Specialty ([place]) [phone] [facility] [phone] [facility] [phone] Raheem [phone] Bedside Delivery ([facility]) [phone] documented in this encounter [facility] 03-12-2023 History of Present illness Narrative [facility] RX OUTREACH ADVANCED: Call Information: Date and Time of Contact: 03/12/2023 10:34 AM Method of Contact: By Phone Contact Type: Prescriptions Contactor: [facility] Contactee: Patient Shipping/Pickup: Medicare B Refill?: No Medication Name: Mycophenoloate sod 360 mg prednisone 5mg Delivery Method: Air Delivery Location: Home Signature Required: No Mailing/Pickup Date: 03/16/2023 Shipping Address: [address] [facility] [address] Contact Info: Specialty ([place]) [phone] Jakob [phone] [facility] [phone] Raheem [phone] Bedside Delivery ([facility]) [phone] [facility] OP RX OUTREACH ADVANCED: Call Information: [...] Date: 03/19/2023 Shipping Address: [address] Contact Info: Specialty ([place]) [phone] [facility] [phone] [facility] [phone] Raheem [phone] Bedside Delivery ([facility]) [phone] documented in this encounter [facility] 03-10-2023 History of Present illness Narrative [facility] OUTREACH ADVANCED: Call Information: Date and Time of Contact: 03/10/2023 12:00 PM Method of Contact: By Phone Contact Type: Prescriptions Contactor: [facility] Contactee: Patient Contact Outcome: Left message and Call back later Shipping/Pickup: Medication Name: Mycophenolate ; Tacrolimus Contact Info: Specialty ([place]) [phone] [facility] [phone] [facility] [phone] Raheem [phone] Bedside Delivery ([facility]) [phone] documented in this encounter [facility] 03-10-2023 History of Present illness Narrative [facility] OUTREACH ADVANCED: Call Information: Date and Time of Contact: 03/10/2023 12:00 PM Method of Contact: By Phone Contact Type: Prescriptions Contactor: [facility] Contactee: Patient Contact Outcome: Left message and Call back later Shipping/Pickup: Medication Name: Mycophenolate ; Tacrolimus Contact Info: Specialty ([place]) [phone] [facility] [phone] [facility] [phone] Raheem [phone] Bedside Delivery ([facility]) [phone] [facility] OP RX OUTREACH ADVANCED: Call Information: Date and Time of Contact: 03/12/2023 10:32 AM Method of Contact: By Phone Contact Type: Prescriptions Contactor: [facility] OP Contactee: Patient Contact Outcome: Left message Shipping/Pickup: Medication Name: Mycophenolate sodium (MYFORTIC) 180 MG Tab tacrolimus 0.5 mg Contact Info: Specialty ([place]) [phone] [facility] [phone] [facility] [phone] Raheem [phone] Bedside Delivery ([facility]) [phone] documented in this encounter [facility] 01-16-2023 History of Present illness [...] GUIDANCE 05/17/2022 Surgeon: Enzo Heart DO; Location: [facility] INTERVENTIONAL RADIOLOGY (VIR) LIVER TRANSPLANT, ORTHOTOPIC N/A 04/12/2020 Laterality: N/A; Surgeon: LU Palma; Location: [facility] SAME DAY SURGERY MAIN OR KIDNEY TRANSPLANT W/O [place] NEPHRECTOMY N/A 04/12/2020 Laterality: N/A; Surgeon: LU Palma; Location: [facility] SAME DAY SURGERY MAIN OR OTHER [...] 0.3 12/29/2022 Explant Pathology Pathologic Diagnosis A. Nikolski liver, orthotopic liver transplant resection (1458 gram): [...] A/P with IV contrast (06/27/2022): 1. Both council kidneys are atrophic with improvement in right-sided [...] frequent nighttime urination, etc). Daisha Max DO Paper Bundler Gastroenterology, Hepatology and Nutrition [facility] Pager: [phone] Images from the original note were not included. 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 Flask Cleaner: Anayeli Burt Date of Liver Transplant: 04/13/2020 (Kidney), 04/13/2020 (Liver) 2 years, 8 months post Liver/Kidney Transplant Primary Disease: Hypertensive Nephrosclerosis Transplant Manager Statistics: Steve Munoz Primary Care physician: Zuly Bruno [...] levels: No results found for: CYCLOSPORIN, CYCLOSPORIN2, [id number], CYCLORAND No components found for: CYCLOSPORINE, 2HR [...] hours. ADDITIONAL INFORMATION: None Specified [id number] [place] [address] - [address] [facility] [address] [facility] [address] [place] [address] [id number] [place] [address] [address] [facility] [address] [facility] [address] [facility] [address], [address] [place] [address] ROS and SCREEN: Chest Pain: negative Cough: [...] PHYSICIAN: documented in this encounter [facility] 01-16-2023 Instructions José Miguel Garnica RN - 01/16/2023 9:40 AM EST - Labs Every 2 months - Discuss night time urination with your PCP - Schedule Colonoscopy through PCP - Follow up in 1 year documented in this encounter [facility] 09-10-2022 History of Present illness Narrative UROLOGY CLINIC NOTE Reason for Appointment: BPH with LUTS HPI: Patient is a 52 yo male with a DDRT to the [facility] in 2019. Nephrostomy tube placed 05/17/22 [...] and no hydronephrosis. Some reflux up the council right ureter but good drainage of both transplant and council ureter to the bladder. Nephrostomy tube was [...] transplant, orthotopic (N/A, 04/12/2020); kidney transplant w/o council nephrectomy (N/A, 04/12/2020); and placement nephrostomy catheter [...] Negative for , diarrhea, constipation Genitourinary: See [place] Neurological: Negative for headaches. Lymph/Heme: Negative [...] x 4, Normal strength. No edema. Skin: [place], warm, and dry. There are no [...] and no hydronephrosis. Some reflux up the council right ureter but good drainage of both transplant and council ureter to the bladder. Nephrostomy tube was [...] MD 09/10/22 documented in this encounter [facility] 07-07-2022 History of Present illness [...] to have transplant ureter with anastomosis to council right ureter. Nephrostogram without filling defects and no hydronephrosis. Some reflux up the council right ureter but good drainage of both transplant and council ureter to the bladder. Nephrostomy tube was [...] documented in this encounter [facility] 06-27-2022 History of Present illness [...] transplant, orthotopic (N/A, 04/12/2020); kidney transplant w/o council nephrectomy (N/A, 04/12/2020); and placement nephrostomy catheter [...] Negative for , diarrhea, constipation Genitourinary: See [place] Neurological: Negative for headaches. Lymph/Heme: Negative [...] x 4, Normal strength. No edema. Skin: [place], warm, and dry. There are no [...] to the [facility] in 2019. Nephrostomy tube placed 05/17 [...] needed. documented in this encounter [facility] 06-27-2022 History and physical note Patient was evaluated in clinic as a nurse visit. Please refer to Rena Brewster's note. [facility] Work Phone: 06-27-2022 History and physical note Patient was evaluated in clinic as a nurse visit. Please refer to Rena Brewster's note. documented in this encounter [facility] 06-27-2022 History of Present illness Narrative TEACHING REGARDING TX NEPH COMPLETED-NEPH TUBE SITE DRY AND INTACT-CLEAR YELLOW URINE IN THE BAG-INSTRUCTED ABOUT FLUSHING, BAG CHANGING ETC. NUMEROUS QUESTIONS ASKED AND ANSWERED-VERBALIZED UNDERSTANDING documented in this encounter [facility] 06-18-2022 Note EXAMINATION: CT ABD/ [...] mass or enlargement. KIDNEYS: Marked atrophy of council kidneys. Transplant right pelvic kidney with percutaneous [...] by: MÓNICA JIMENEZ Date: 2022-06-18 13:53 [facility] 06-12-2022 Instructions Anayeli Christianson RN - 06/12/2022 3:21 PM EDT Do not take apart/disrupt nephrostomy tube system. Call Interventional Radiology and/or on-call transplant nurse [phone] for instruction if need to flush (clot or decreased flow). Take cipro 500mg, one tablet, twice per day for 14 days documented in this encounter [facility] 06-12-2022 History of Present illness Narrative Images from the original note were not included. 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 Flask Cleaner: Anayeli Burt Date of Liver Transplant: 04/13/2020 (Kidney), 04/13/2020 (Liver) 2 year, 1 months post Liver/Kidney Transplant Primary Disease: Hypertensive Nephrosclerosis Transplant Manager Statistics: Steve Munoz Primary Care physician: Zuly Bruno [...] or medical transport for appointment: no Did hand roller confirm current address and insurance information is [...] LAB AND PHARMACY: None Specified [facility] [place] [address] - [address] [facility] [address] [facility] [address] [facility] [address], [address] [place] [address] [facility][id number] [place] [address] [address] [facility] [address] [facility] [address] [facility] [address], [address] [facility] [address] ROS and SCREEN: Chest Pain: negative Cough: negative SOB: negative Abd Pain: negative Nausea: positive Vomiting: negative Diarrhea: negative Constipation: negative Dysuria: positive Edema: negative Tremors: negative Headaches: negative Wound issues: negative Pt has neph tube w clear yellow urine. States he had a small clot that he dislodged QUESTIONS OR CONCERNS TO ADDRESS WITH PHYSICIAN: I saw George Styles at the [facility] on 06/12/2022. Patient is a 52 y.o. 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 Steve Munoz MD ski maker wood Division of Nephrology [facility] documented in this encounter [facility] 06-04-2022 Instructions TATI GROVE - 06/04/2022 11:04 AM EDT Thank you for joining us for your neph tube follow up. We recommend routine exchange every 8-10 weeks. Please reach out at [phone] when it is time to set your next routine exchange. Thank you IR clinic documented in this encounter [facility] 06-04-2022 History of Present illness [...] understanding. documented in this encounter [facility] 05-20-2022 Note Formatting of this [...] his discharge. Leon Cook RN [facility] 05-20-2022 Miscellaneous Notes Patient discharged. [...] provide teaching before his discharge Leon GALLARDO #[id number] Leon Cook RN Afternoon assessment completed at [...] Rounds/Family Conf Outcome: Ongoing Discussed with [facility] re: possible urine culture performed at their facility. However, based on urinalysis completed at that time, which was only notable for hematuria, culture was not performed and sample no longer feasible for culture. Liam Julian MD Internal Medicine/Pediatrics, PGY-3 2003: RxCost ContainmentIS message sent to Dr Justyn Wen, regarding [...] used. IHIS chat sent to Dr Tray uQintana, regarding pt BP 190/86. Pt complaining of [...] with questions. Evan Byrd MD Urology, PGY-2 #[id number] I certify that this patient requires inpatient [...] RN documented in this encounter [facility] 05-20-2022 Note Formatting of this [...] care. Outcome: Adequate for Discharge [facility] 05-20-2022 Note Formatting of this n ote might be different from the original. Anne Dillard MD R10 Rm 1006 Jensen Orellana Please let's have a clear order on how the nephrostomy site dressing need to be changed when the patient goes home so we provide teaching before his discharge Leon RN #[id number] Leon Cook RN [facility] 05-20-2022 History of Present illness Narrative Images from the original note were not included. [facility] Note: [facility] received the following discharge prescription(s): Medication reconciliation was completed with comparison to discharge reconciliation report. The prescription(s) will be delivered to the patient's bedside on 05/20/22. Total cost is $0. Yanira Her RPh,PharmD Specialty ([place]) [phone] [facility] [phone] [facility] [phone] [facility] [phone] [place] [phone] Bedside Delivery ([facility]) [phone] Attending I saw George Styles at the [facility] on 05/19/2022. I saw and independently [...] Nishant Gamez MD 10 mg at 05/18/22 08 Or oxyCODONE (ROXICODONE) tablet 5 mg 5 [...] Daily Progress Note Patient: George Styles, 1970, [id number] Physician: Liam Julian MD, PGY-3, Pager #[phone], [email or web address] Subjective/Interval History: No acute events overnight. Passed [...] Saldana MD Division of Hospital Medicine Pager [phone] Attending I saw George Styles at the [facility] on 05/18/2022. I saw and independently [...] 400 mg 400 mg Oral Q6H PRN Eavn Bennett MD heparin injection 5,000 Units 5,000 [...] PRN Nishant Gamez MD 10 mg at 05/18/22337 Or oxyCODONE (ROXICODONE) tablet 5 mg 5 [...] 250 mL 250 mL Intravenous PRN Evan Bnenett MD [Held by provider] tacrolimus (PROGRAF) capsule [...] Daily Progress Note Patient: George Styles, 1970, [id number] Physician: Nishant Gamez MD, PGY2, Pager #[phone], [id number] Subjective/Interval History: Nephrostomy tube placed yesterday with a lot of urine output and significant improvement in creatinine. 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 Daya (Nunu) Jeff Saldana MD Division of Hospital Medicine Pager [phone] Internal Medicine Daily Progress Note Patient: George Styles, 1970, [id number] Physician: Nishant Gamez MD, PGY2, Pager #[phone], [email or web address] Subjective/Interval History: Worsening creatinine this morning with [...] Saldana MD Division of Hospital Medicine Pager [phone] Attending I saw George Styles at the [facility] on 05/17/2022. I saw and independently [...] Evan Bennett MD 81 mg at 05/16/22 101 atorvastatin (LIPITOR) tablet 20 mg 20 mg Oral QHS Evan Bennett MD 20 mg at 05/16/222047 benzocaine-menthol (CEPACOL) 15-3.6 MG per lozenge 1 lozenge 1 lozenge Oral Q2H PRN Evan Bennett MD cefTRIAXone (ROCEPHIN) 2 g in dextrose 50mL premix IVPB 2 g Intravenous Q24H Nishant Gamez MD 100 mL/hr at 05/17/22 0546 Rate Verify at 05/17/22545 faMOTIdine (PEPCID) tablet 20 mg 20 mg Oral Daily Evan Bennett MD 20 mg at 05/16/221017 gabapentin (NEURONTIN) capsule 400 mg 400 mg [...] of chart and discussion with treatment team, [employer] Principal has not identified needs at this time. [...] follow. Introduced self and role of the welder setter resistance machine to patient. Provided emotional and spiritual support and the patient responded by sharing their experience and discussed the following: - Spirituality/Yarsanism Affiliation: As a kid attended [employer] but not a strong identity now - Family support - pt's brothers live close by Business Management Professor provided: - Supportive presence - Active listening - Validation of feelings/emotions Patient encouraged to request a welder setter resistance machine as needed. Chaplains are available in-house 24 hours a day and 7 days a week. For urgent matters in [facility], please page [phone]. If the request is not urgent, please enter a consult. Consults are responded to within 24 hours. Angie Singh Mdiv, [facility] Burn Unit and Transplant [place] [address] Business Management Professor [facility] Business Management Professor [place] [phone] [email or web address] 22/06 [facility] Pager [phone] 22/06 Pager ,[facility], and [place] 1500 22/06 Raheem Pager [phone] 05/16/22 0598 Clinical Encounter Type Visited With Patient Visit Type Introduction Pastoral Time Spent 15 min Referral Other (See Comment) (Rounding) Spiritual Assessment Spiritual Observation Spirituality helpful;Identifies as (see comment) (Pentecostal) Emotional Observation Coping well Hope Observation Hopeful and accepting Support Observation By Family Interventions Provided Active listening;Supportive presence Facilitated Verbalization of feelings;Sharing of life story;Identifying support system Explored Expectations Credit Card Clerk Education Credit Card Clerk Service Available Yes Educated Patient Outcomes Patient Outcomes Articulated purpose/meaning Plan of Care Continue Visiting PRN Internal Medicine Daily Progress Note Patient: George Styles, 1970, [id number] Physician: Nishant Gamez MD, PGY2, Pager #[phone], [id number] Subjective/Interval History: Overall feeling okay this morning. 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 Objective/Observation: [...] Supervision Transfer Assessment: Sit to Stand Transfer Osborne Level: Sit->Stand: independent Skilled Intervention/Details: Sit->Stand: x1 from EOB Stand to Sit Transfer Osborne Level: Stand->Sit: supervision Assistive Device: Stand->Sit: armed chair Skilled Rationale: Controlled descent for sitting, Verbal cues Gait/Functional Mobility: Gait Assessment Osborne Level: Gait: supervision Assistive Device: Gait: gait belt Gait Distance (feet): 200 Gait Deviations Identified: decreased grace, decreased step length, decreased stride length Gait Skilled Rationale: verbal, upright posture Skilled Intervention/Details - Gait: Pt with steady gait without LOB or complaints of SOB. Stairs: Stairs Assessment Osborne Level: Stair Negotiation: stand-by assist Assistive Device: Stair Negotiation: gait belt, left rail (ascending) Number of stairs: 9 Stairs Skilled Rationale: reciprocal pattern Outcome Score(s): CURRENT [facility] Basic Mobility Inpatient Short Form Turning over in bed: 4 - No Assistance Sitting/standing from chair: 4 - No Assistance Moving from lying on back to sittin - No Assistance Moving to and from bed to chair: 4 - No Assistance Walk in hospital room: 3 - A Little Assistance Climbing 3-5 steps with a railin - A Little Assistance CURRENT [facility] Mobility Raw Score: 22 CURRENT AM-PAC Mobility Functional Limitation/Modifier: 20.91% Currently Impaired in [...] community) 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 IADL [...] Assessment: Transfer Assessment: Sit to Stand Transfer Osborne Level: Sit->Stand: independent Skilled Rationale: Cues for increased safety Skilled Intervention/Details: Sit->Stand: x1 EOB Stand to Sit Transfer Osborne Level: Stand->Sit: supervision Assistive Device: Stand->Sit: gait belt, armed chair Skilled Rationale: Verbal cues, Controlled descent for sitting, Cues for increased safety Skilled Intervention/Details: Stand->Sit: cues for hand placement and controlled descent Functional Mobility: Functional Mobility Osborne Level: Functional Mobility/Gait: stand-by assist Assistive Device: [...] No Assistance Eatin - No Assistance CURRENT AM-[facility] Activity Raw Score: 21 CURRENT AM-[facility] Activity Functional Limitation/Modifier: 32.79% Currently [...] 04/12/2020 Laterality: N/A; Surgeon: LU Palma; Location: [facility] SAME DAY SURGERY MAIN OR KIDNEY TRANSPLANT W/O [place] IN [place] NEPHRECTOMY N/A 04/12/2020 Laterality: N/A; Surgeon: LU Palma; Location: [facility] SAME DAY SURGERY MAIN OR OTHER [...] by: Mel Norman OT, OTR/L License #: [id number] pager # [phone] 05/20/2022 Upon discontinuation of Acute Care Occupational Therapy Services or patient discharge from the hospital this note represents the current Occupational Therapy Discharge Summary. documented in this encounter [facility] 05-20-2022 Hospital course Narrative Discharge Summary Name: George Styles Age: 52 y.o. Birthday: 1970 Admit Date: 05/15/2022 3:51 PM Discharge Date: 05/20/22 Discharge Time: 11:52 AM Discharge Unit: [facility] 4 Admission Information Admitting Physician: Daya Saldana [...] during his recent hospital stay at [facility]. As you may know, George Styles, [...] Saldana MD Division of Hospital Medicine p: [phone] f: [phone] CONSULTS DURING ADMISSION: IP CONSULT TO SURGERY - UROLOGY IP CONSULT TO NEPHROLOGY - TRANSPLANT (MEDICINE) IP CONSULT TO INTERVENTIONAL RADIOLOGY IP CONSULT TO PHYSICAL THERAPY IP CONSULT TO OCCUPATIONAL THERAPY IP CONSULT TO PHARMACY BEDSIDE DISCHARGE MED DELIVERY IMAGING / PROCEDURES / RESULTS: Should you require further information or copies of results or reports please contact [employer] @ [phone] LABS AT TIME OF DISCHARGE: Lab Results [...] HOME AT DISCHARGE: Zulytray Bruno [address] [facility] [place] [address] MEDICATIONS: Discharge Orders CT ABDOMEN/PELVIS WITHOUT CONTRAST [...] CAPS Generic drug: docusate Follow-up: Zuly Bruno, ROB [address] [facility] [address] Schedule an appointment as soon as possible for a visit Follow-up appointment with your, primary care physician within 7-10 days, after discharge. [address] [facility] [address] Follow up The department of urology will call you with a follow up appointment. LU Ovalle [address] 11[address] Floor [facility] [address] Follow up Please make a follow up appointment with Dr. Munoz's office. Upcoming Appointments (up to five)-Some appointments for Medical Center outpatient clinics or diagnostic testing locations are not displayed below Provider Department Dept Phone 06/04/2022 10:40 AM IR CLINIC [facility] Interventional Radiology Clinic [phone] 06/27/2022 1:30 PM [facility] Department of Radiology Arrive at: Arrive to First Floor Registration Desk [phone] 06/27/2022 2:40 PM Ryan Yepez [facility] [place] Arrive at: Arrive to 2nd Floor, Registration [address] 10/31/2022 1:00 PM Steve Munoz [facility] Transplant [facility] [phone] 01/16/2023 9:40 AM TRANSPLANT HEPATOLOGY 3, [facility] Transplant [facility] [phone] Associated attestation - Daya Saldana MD - [...] MD (Peggy) Division of Hospital Medicine Pager [phone] documented in this encounter [facility] 05-20-2022 Hospital Discharge instructions Giulia [...] be changed by Interventional Radiology. Please call [phone] to schedule this appointment and with any questions or concerns you may have regarding the nephrostomy tube. If you have questions or concerns, please call Interventional Radiology at SOMEONE FROM INTERVENTIONAL RADIOLOGY WILL CALL YOU FOR A FOLLOW UP IN THE CLINIC Giulia Cavazos RN Nurse Coordinator Interventional Radiology Interventional Radiology Outpatient scheduling documented in this encounter [facility] 05-19-2022 Note Formatting of this [...] Interdisciplinary Rounds/Family Conf Outcome: Ongoing [facility] 05-19-2022 Note Formatting of this n ote might be different from the original. Discussed with [facility] re: possible urine culture performed at their facility. However, based on urinalysis completed at that time, which was only notable for hematuria, culture was not performed and sample no longer feasible for culture. Liam Julian MD Internal Medicine/Pediatrics, PGY-3 [facility] 05-18-2022 Note Formatting of this n ote might be different from the original. 2002: IHIS message sent to Dr Justyn Wen, regarding patient passing a small kidney stone, about the size of pea. notified. Stone left in strainer in pt bathroom. 0: IHIS message sent to Dr Justyn Wen, regarding pt BP 174/77. [facility] 05-18-2022 Note Formatting of this [...] discharge/transition of care. Outcome: Ongoing [facility] 05-18-2022 Note Formatting of this [...] NS should instead be used. [facility] Work Phone: 05-18-2022 Note Formatting of this n ote might be different from the original. IHIS chat sent to Dr Tray Quintana, regarding pt BP 190/86. Pt complaining of pain at site of neph tube. PRN pain medication given per order parameters. Pt denies any other symptoms at this time. notified and aware. [facility] 05-17-2022 Note Formatting of this n ote might be different from the original. At 0900, I rounded with Dr. Gamez and Dr. Saldana. At that time I checked Mr. Styles's vital signs. His pulse oximeter was low and he was tachypneic. Verbal order at bedside to put nasal cannula on starting at 2liters oxygen and to provide incentive spirometer. [facility] 05-17-2022 Note Formatting of this n ote might be different from the original. Interventional Radiology procedure completed with IR Attending Dr. Heart / Dr. Le of percutaneous right nephrostomy tube placement transplant kidney 10.2 Fr Griffin acosta Pt tolerated procedure with moderate sedation local numbing agent . Transported to inpatient after phase I recovery. Post procedure orders in place. [facility] 05-16-2022 Note Formatting of this n ote might be different from the original. At 1530, I text parisd Kaitlynn Gomez MD that patient has only had 25ml urine output in matias this afternoon. T [facility] 05-16-2022 Note Formatting of this [...] with questions. Evan Byrd MD Urology, PGY-2 #[id number] [facility] Work Phone: 05-16-2022 Note Formatting [...] will be discharge to home. [facility] 05-16-2022 Consult note Associated Order (s): IP CONSULT TO NEPHROLOGY - TRANSPLANT (MEDICINE) I saw George Styles at the [facility] on 05/16/2022. Reason for Consultation: kidney [...] he was given flomax and sent home. [place] better but noticed more pain and decreased [...] and recommendations. Maxi Pringle MD [facility] Work Phone: 05-16-2022 Consult note Associated Order (s): IP CONSULT TO NEPHROLOGY - TRANSPLANT (MEDICINE) [facility] Hospital on 05/16/[facility]22. Reason for Consultation: kidney [...] he was given flomax and sent home. [place] better but noticed more pain and decreased [...] states he went to his local ED [employer] and he was put on Flomax and he did improve. Pt states last night he was unable to void with severe right sided abd pain. Pt states nausea and no vomiting or fevers. Pt states he went back to [facility] ED at 0100 and they placed a [...] orthotopic (N/A, 04/12/2020); and kidney transplant w/o council nephrectomy (N/A, 04/12/2020). 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 The council kidneys are progressively atrophic bilaterally compared to [...] of 06/14/2020 are no longer present. The council distal right ureter is decompressed beyond this [...] with surgical history for renal graft and council right urinary drainage, as a discrete ureteroneocystostomy is not identified, and the graft may be draining via a ureteroureterostomy. Urology consultation recommended. 3. The council kidneys are bilaterally atrophic, with right renal sinus calcifications consistent with nonobstructing right council renal calculi up to 6 mm. Normal [...] PGY-3, Department of Urologic Surgery Pager #: [phone] Associated attestation - Ryan Yepez MD - [...] documented in this encounter [facility] 05-16-2022 Note Formatting of this [...] Relationship/Rapport: care explained choices provided [facility] 05-16-2022 Note Formatting of this n ote might be different from the original. On admission to 0, a dual RN initial assessment of skin condition was performed by Kallie Lorenzana RN and Sheri Arguelles RN. Skin Assessment: WDL Jose Score: 20 LDA Added:N Kallie Lorenzana RN [facility] 05-15-2022 Emergency department Note Report given to Kallie GALLARDO at [facility] 05-15-2022 Emergency department Note Report given to Kallie GALLARDO at [facility] Bladder scan with Dr Villatoro at [...] diagnosed Thursday and was [facility]. He went back to that [...] DAY SURGERY MAIN OR KIDNEY TRANSPLANT W/O [place] TRIBE IN [place] NEPHRECTOMY N/A 04/12/2020 Laterality: N/A; Surgeon: LU [...] MD Resident 05/15/222030 Pt arrives from [facility] with kidney stones. Pt states he had right lower abd pain and right flank pain with blood in his urine since Thursday. Pt states he went to his local ED [employer] and he was put on Flomax and he did improve. Pt states last night he was unable to void with severe right sided abd pain. Pt states nausea and no vomiting or fevers. Pt states he went back to [facility] ED at 0100 and they placed a matias and CT scan completed and multiple kidney stones noted. Pt [facility] ED as he had liver and kidney transplant in 03/2020. documented in this encounter [facility] 05-15-2022 History and physical note Internal Medicine Admission History & Physical Patient: George Styles, 1970, [id number] Physician: Evan Bennett MD, PGY1, Pager #[phone], GM 4 service Date of face to [...] DAY SURGERY MAIN OR KIDNEY TRANSPLANT W/O [place] TRIBE IN [place] NEPHRECTOMY N/A 04/12/2020 Laterality: N/A; Surgeon: LU [...] erythema: Skin: No jaundice or rash Neuro: dry cell tester 3-7, 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 Strength [...] dilation of the calyces may represent narrowing/partial [id number] ofthe ureter and mild hydronephrosis or sequela [...] Prince MD Division of Hospital Medicine [phone] [facility] Work Phone: 05-15-2022 History and physical note Internal Medicine Admission History & Physical Patient: George Styles, 1970, [id number] Physician: Evan Bennett MD, PGY1, Pager #[phone], GM 4 service Date of face to [...] DAY SURGERY MAIN OR KIDNEY TRANSPLANT W/O [place] TRIBE IN [place] NEPHRECTOMY N/A 04/12/2020 Laterality: N/A; Surgeon: LU [...] erythema: Skin: No jaundice or rash Neuro: dry cell tester 3-7, 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 Strength [...] dilation of the calyces may represent narrowing/partial [id number] ofthe ureter and mild hydronephrosis or sequela [...] documented in this encounter [facility] 05-15-2022 Emergency department Note Bladder scan with Dr Villatoro at bedside, 14ml noted [facility] 05-15-2022 Consult note Associated Order [...] states he went to his local ED [facility] and he was put on Flomax and he did improve. Pt states last night he was unable to void with severe right sided abd pain. Pt states nausea and no vomiting or fevers. Pt states he went back to [facility] ED at 0100 and they placed a [...] orthotopic (N/A, 04/12/2020); and kidney transplant w/o council nephrectomy (N/A, 04/12/2020). 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 The council kidneys are progressively atrophic bilaterally compared to [...] of 06/14/2020 are no longer present. The council distal right ureter is decompressed beyond this [...] with surgical history for renal graft and council right urinary drainage, as a discrete ureteroneocystostomy is not identified, and the graft may be draining via a ureteroureterostomy. Urology consultation recommended. 3. The council kidneys are bilaterally atrophic, with right renal sinus calcifications consistent with nonobstructing right council renal calculi up to 6 mm. Normal [...] PGY-3, Department of Urologic Surgery Pager #: [phone] Associated attestation - Ryan Yepez MD - [...] intervention --may continue flomax [facility] Work Phone: 05-15-2022 Emergency department Note Advised Dr Schneider concerning no urine output via matias catheter. [facility] 05-15-2022 Physician Emergency department Note [...] care. Gian Villatoro MD 05/15/222003 [facility] Work Phone: 05-15-[address] Schneider made aware of only 30 ml urine via matias since arrival to room. [facility] 05-15-2022 Physician Emergency department Note [...] 04/12/2020 Laterality: N/A; Surgeon: LU Palma; Location: [facility] SAME DAY SURGERY MAIN OR KIDNEY TRANSPLANT W/O [place] TRIBE IN [place] NEPHRECTOMY N/A 04/12/2020 Laterality: N/A; Surgeon: LU Palma; Location: [facility] SAME DAY SURGERY MAIN OR OTHER [...] Matt Schneider MD Resident 05/15/222030 [facility] Work Phone: 05-15-2022 Emergency department Note Pt arrives from [facility] with kidney stones. Pt states he had right lower abd pain and right flank pain with blood in his urine since Thursday. Pt states he went to his local ED [employer] and he was put on Flomax and he did improve. Pt states last night he was unable to void with severe right sided abd pain. Pt states nausea and no vomiting or fevers. Pt states he went back to [facility] ED at 0100 and they placed a matias and CT scan completed and multiple kidney stones noted. Pt sent to [facility] ED as he had liver and kidney transplant in 03/2020. [facility] 03-14-2022 History of Present illness [...] Required: No Mailing/Pickup Date: 03/17/2022 Shipping Address: [address] [place] [address] [address] Contact Info: Specialty ([place]) [phone] [facility] [phone] [facility] [phone] [facility] [phone] Bedside Delivery ([facility]) [phone] documented in this encounter [facility] 06-14-2021 History of Present illness [...] Goal Progress: Satisfactory Contact Info: Specialty ([place]) [phone] [facility] [phone] [facility] [phone] Ra[facility] [phone] Bedside Delivery ([facility]) [phone] [facility]: Call Information: Date [...] Home Signature Required: Yes Shipping Address: [address] [place] [address] Contact Info: Specialty ([place]) [phone] [facility] [phone] [facility] [phone] Raheem [phone] Bedside Delivery ([facility]) [phone] documented in this encounter [facility] note Future Appointments Appointment Date:11/22/2024 09:00:00 AM Scheduled Provider:JONATHAN Almodovar APRN, [place] [facility] Location:[facility] Appointment Type:URO Office Visit [facility] Evaluation note Diagnosis FAYE (acute kidney injury)- Primary Acute kidney failure, unspecified Hydronephrosis due to obstruction of ureteral orifice Hydronephrosis due to obstruction of ureteral orifice FAYE (acute kidney injury) Acute kidney failure, unspecified [facility] Diagnosis Follow-up exam- Primary Unspecified follow-up examination [facility] Diagnosis Immunosuppressed status- Primary Unspecified disorder of immune mechanism Kidney replaced by transplant Liver replaced by transplant Abnormal blood chemistry Other abnormal blood chemistry High risk medication use Encounter for long-term (current) use of other medications Aftercare following organ transplant Liver transplant recipient [facility] Diagnosis Attention to nephrostomy- Primary [facility] Diagnosis Other hydronephrosis- Primary [facility] Diagnosis FAYE (acute kidney injury) Acute kidney failure, unspecified 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) Encounter for screening for malignant neoplasm of prostate Special screening for malignant neoplasm of prostate [facility] Diagnosis Abnormal blood chemistry- Primary Other abnormal blood chemistry Liver transplant recipient Kidney replaced by transplant Immunosuppressed status Unspecified disorder of immune mechanism Aftercare following organ transplant [facility] Diagnosis Kidney replaced by transplant- Primary [facility] Diagnosis Immunosuppressed status- Primary Unspecified disorder of immune mechanism Kidney replaced by transplant Aftercare following organ transplant High risk medication use Encounter for long-term (current) use of other medications Other general symptoms and signs Abnormal blood chemistry Other abnormal blood chemistry Hypertension secondary to other renal disorders [facility] Diagnosis Histoplasmosis- Primary Histoplasmosis, [...] [facility] Diagnosis Bilateral lower extremity edema- Primary 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) Atherosclerosis 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) Atherosclerosis of aorta Obesity (BMI 30-39.9) DARLENE (obstructive sleep apnea) Obstructive sleep apnea (adult) (pediatric) Tremor Abnormal involuntary movements Immunocompromised (CMS/HCC) Unspecified immunity deficiency Primary hypertension (CMS/HCC) Unspecified essential hypertension Shortness of breath documented [facility] encounter [facility]* Diagnosis Pleural effusion on [...] specified pre-operative examination [facility] Diagnosis Heart failure, diastolic, acute- Primary Acute diastolic heart failure [facility] Diagnosis Liver lesion- Primary Other specified disorders of liver Liver transplant recipient High risk medication use Encounter for long-term (current) use of other medications Therapeutic drug monitoring Encounter for therapeutic drug monitoring Immunocompromised Unspecified immunity deficiency [facility] Diagnosis Kidney replaced by transplant- Primary [facility] Diagnosis DARLENE (obstructive sleep apnea)- Primary Obstructive sleep apnea (adult) (pediatric) Generalized anxiety disorder (CMS/HCC) Generalized anxiety disorder Class 1 obesity due to excess calories with body mass index (BMI) of 31.0 to 31.9 in adult, unspecified whether serious comorbidity present Kidney stones Calculus of kidney Tremor Abnormal involuntary movements Immunocompromised (CMS/HCC) Unspecified immunity deficiency S/P liver transplant (CMS/HCC) Bilateral lower extremity edema- Primary 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) Atherosclerosis 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) Atherosclerosis of aorta Obesity (BMI 30-39.9) DARLENE (obstructive sleep apnea) Obstructive sleep apnea (adult) (pediatric) Tremor Abnormal involuntary movements Immunocompromised (CMS/HCC) Unspecified immunity deficiency Primary hypertension (CMS/HCC) Unspecified essential hypertension Shortness of breath Encounter for subsequent annual wellness visit (AWV) in Medicare patient- Primary Liver transplant status (Z94.4) DARLENE (obstructive sleep apnea) Obstructive sleep apnea (adult) (pediatric) Primary hypertension (CMS/HCC) Unspecified essential hypertension Complication of arteriovenous dialysis fistula, subsequent encounter Bilateral lower extremity edema Histoplasmosis S/P liver transplant (CMS/HCC) Immunocompromised (CMS/HCC) Unspecified immunity deficiency Heart failure, diastolic, acute (CMS/HCC) Acute diastolic heart failure Organ transplant Unspecified organ or tissue replaced by transplant Primary hypertension (CMS/HCC)- Primary Unspecified essential hypertension Left carotid bruit Immunocompromised (CMS/HCC) Unspecified immunity deficiency Histoplasmosis Organ transplant Unspecified organ or tissue replaced by transplant Overweight (BMI 25.0-29.9) Overweight Primary hypertension (CMS/HCC)- Primary Unspecified essential hypertension Portal hypertension (CMS/HCC) Portal hypertension Alcoholic cirrhosis of liver without ascites (CMS/HCC) Obesity (BMI 30-39.9) Gastroesophageal reflux disease, unspecified whether esophagitis present Immunocompromised (CMS/HCC) Unspecified immunity deficiency Organ transplant Unspecified organ or tissue replaced by transplant Tremor Abnormal involuntary movements S/P liver transplant (CMS/HCC) Blood glucose elevated Other abnormal glucose Left carotid bruit Mixed hyperlipidemia (CMS/HCC) Mixed hyperlipidemia Prostate cancer screening Special screening for malignant neoplasm of prostate Dysuria Abdominal pain, generalized DARLENE (obstructive sleep apnea) Obstructive sleep apnea (adult) (pediatric) Bilateral lower extremity edema Other constipation Decreased urine stream Slowing of urinary stream Decreased urine stream- Primary Slowing of urinary stream [facility] Narrative No data available for this section [facility] progress note No data available for this section [facility] reason for referral (narrative)* Consultation (Routine) - New Request Specialty Diagnoses / Procedures Referred By Deni edwards Referred To Contact Interventional Radiology Diagnoses Hydronephrosis due to obstruction of ureteral orifice Daya Saldana MD [address] [place] [address] Referral ID Status Reason Start Date Expiration Date V isits Requested Visits Authorized [id number] New Request 05/18/2022 06/12/2023 1 1 * Radiology (Emergency) - New Request Specialty Diagnoses / Procedures Referred By Deni t Referred To Contact Procedures US RENAL TRANSPLANT SCAN Daya Saldana MD [address] [place] [address] Referral ID Status Reason Start Date Expiration Date V isits Requested Visits Authorized [id number] New Request 05/16/2022 06/10/2023 1 1 * Consultation (Routine) - New Request Specialty Diagnoses / Procedures Referred By Deni t Referred To Contact Urology Diagnoses FAYE (acute kidney injury) Ryan Yepez MD [address] [place] [address] [address] [place] [address] Referral ID Status Reason Start Date Expiration Date V isits Requested Visits Authorized [id number] New Request 05/16/2022 06/10/2023 1 1 * MRI/CAT Scan (Routine) - New Request Specialty Diagnoses / Procedures Referred By Deni edwards Referred To Contact Diagnoses FAYE (acute kidney injury) Procedures CT ABDOMEN/PELVIS WITHOUT CONTRAST CHG CT SCAN,ABDOMENT AND PELVIS,W/O CONTRAST Ryan Yepez MD [address] [place] [address] [address] [place] [address] Referral ID Status Reason Start Date Expiration Date V isits Requested Visits Authorized [id number] New Request 05/16/2022 06/10/2023 1 1 * (Routine) - Pending Review Specialty Diagnoses / Procedures Referred By Deni t Referred To Contact Procedures PLATELET MONITORING PER PROTOCOL Daya Saldana MD [address] [place] [address] Referral ID Status Reason Start Date Expiration Date V isits Requested Visits Authorized [id number] Pending Review 05/15/2022 06/09/2023 1 1 * (Routine) - Pending Review Specialty Diagnoses / Procedures Referred By Contac t Referred To Contact Procedures DVT/VTE RISK ASSESSMENT Daya Saldana MD [address] [place] [address] Referral ID Status Reason Start Date Expiration Date V isits Requested Visits Authorized [id number] Pending Review 05/15/2022 06/09/2023 1 1 * (Routine) Specialty Diagnoses / Procedures Referred By Contac t Referred To Contact Evan Bennett MD [address] [place] [address] Referral ID Status Reason Start Date Expiration Date Visits Re quested Visits Authorized * (Routine) Specialty Diagnoses / Procedures Referred By Contac t Referred To Contact Evan Bennett MD [address] [place] [address] Referral ID Status Reason Start Date Expiration Date Visits Re quested Visits Authorized [facility] for referral (narrative)* Consultation (Routine) - New Request Specialty Diagnoses / Procedures Referred By Contac t Referred To Contact Sleep Medicine Diagnoses Hypoxia Kevin Prince MD [address], [place] [address] Referral ID Status Reason Start Date Expiration Date V isits Requested Visits Authorized [id number] New Request 09/10/2023 10/04/2024 1 1 * MRI/CAT Scan (Routine) - New Request Specialty Diagnoses / Procedures Referred By Contac t Referred To Contact Diagnoses Histoplasmosis Procedures CT CHEST WITHOUT CONTRAST CHG DIAGNOSTIC COMPUTED TOMOGRAPHY THORAX W/O ROBERTT Kevin Prince MD [address] [place] [address] Referral ID Status Reason Start Date Expiration Date V isits Requested Visits Authorized [id number] New Request 09/10/2023 10/04/2024 1 1 * Radiology (Routine) - New Request Specialty Diagnoses / Procedures Referred By Contac t Referred To Contact Procedures US RENAL TRANSPLANT SCAN Steve Munoz MBBS [address] [place] [address] Referral ID Status Reason Start Date Expiration Date V isits Requested Visits Authorized [id number] New Request 08/29/2023 09/22/2024 1 1 * (Routine) - New Request Specialty Diagnoses / Procedures Referred By Contac t Referred To Contact Procedures PLATELET MONITORING PER PROTOCOL Steve Munoz MBBS [address], [place] [address] Referral ID Status Reason Start Date Expiration Date V isits Requested Visits Authorized [id number] New Request 08/28/2023 09/21/2024 1 1 * (Routine) - New Request Specialty Diagnoses / Procedures Referred By Contac t Referred To Contact Procedures DVT/VTE RISK ASSESSMENT Steve Munoz MBBS [address] [place] [address] Referral ID Status Reason Start Date Expiration Date V isits Requested Visits Authorized [id number] New Request 08/28/2023 09/21/2024 1 1 [facility] Instructions * Patient Instructions - Samycolt Christin MagalieDEEP-SENIOR DATA MODELER - 10/19/2018 9:21 AM EST You should take an extra dose of the lactulose as needed so that you are having 3-4 bowel movementsdaily. You should start the chemical dependency counseling as soon as possible. If you have questions, call the transplant social media job titles Fidelina Pierson. in this encounter* Patient Instructions - Sophie Cary RN - 10/12/2018 11:09 AM EST You have been seen in the pre-transplant evaluation clinic by Dr. Restrepo and Sophie Cary. Sophie Cary is your pre-environmental coordinator she can be reached at [phone] at any time for questions during the pre-transplant process. Your evaluation is complete pendin. Abdominal ultrasound. 2. 6 minute walk test. 3. Cardiology evaluation. Additionally, your can sterilizer will recommend testing to screen for coronary artery disease. This will be scheduled for you after your cardiology visit. 4. Your coordinator will be requesting record from your last dental visit, colonoscopy and EGD. 5. Please work to complete social work recommendations. Your social media job titles will be contacting you to follow up on your progress. 6. You have also been referred for a kidney transplant. An appointment will be scheduled for you sari evaluated in the kidney transplant clinic after you have satisfied requirements dictated by [email or web address] company. Once your testing is complete, we will review your case at patient selection committee for possiblelisting on the liver transplant waitlist. in this encounter History of Present Illness * RyanLindsay mcallister - 10/19/2018 9:00 AM EST Formatting of [...] ___ Other Name MRN * Christin Elizabeth, NURSE [facility] - 10/19/2018 9:00 AM EST Formatting of this note may be different from the original. History of Present Illness: Chief Complaint Patient presents with Follow-up Cirrhosis George Styles is a 48 y.o. male who presents to the [facility] today regarding his diagnosis/chief complaint(s) of Cirrhosis secondary to ETOH, with ESRD follows with Dr. Orr. Currently undergoing evaluation for liver/kidney transplant. Has been seen in transplant clinic for eval. Still undergoing pre testing. Diagnosed in April 2018. Last drink was immediately prior to hospital admission in [place] for ACLF. Hospital course notable for ARF [...] kidney transplant evaluation. Pt was AOx3. Transplant French Folder role/function was explained and reviewed. The patient was informed that the results of this assessment will be shared with the referring provider and the transplant team. The patient verbalized understanding of this information. The [facility] psychosocial assessment consent form has been explained to patient and has been signed. Pt is completing this evaluation with brother (David) in the Outpatient setting. NANCYK educated pt on the benefits of completing/filing advanced directives and resources were offered. Pt identifies with [employer] scientology. Pt confirms being a [place] Citizen. [...] valid license, does not regularly drive (SENIOR DATA MODELER recommends that he not to drive). He [...] related disease etoh cirrohosis April dx in [facility] for thirty days. Pt reports learning that [...] as well as referred him to pre environmental coordinator. Pt and support demonstrated moderate understanding [...] Patient's brother David is a self employed parlor maid. Additional support includes his other brother Tyshawn and his Mary live fifteen minutes away. 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 He confirms being comfortable asking for [...] in 2010, he was employed by the [employer]. 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 Patient George Styles ([id number]), accompanied by his brother, was seen on [...] any further questions. Sophie GUERINN, RN Liver Flask Cleaner Etiology: ETOH HCC: No ETOH: Yes Last [...] Yovani Orr MD [address] [address] Status Reason Specialty Diagnoses / Procedures Referred By Contact Referred To Contact New Request Diagnoses Cirrhosis of liver with ascites, unspecified hepatic cirrhosis type Procedures US ABDOMEN RUQ/LIVER/GB Yovani Orr MD [address] [address] Specialty Diagnoses / Procedures Referred By Contac t Referred To Contact Diagnoses FAYE (acute kidney injury) Procedures CT ABDOMEN/PELVIS WITHOUT CONTRAST CHG CT SCAN,ABDOMENT AND PELVIS,W/O CONTRAST Central [facility] [place] [address] Referral ID Status Reason Start Date Expiration Date V isits Requested Visits Authorized [id number] Pending Review 05/16/2022 06/10/2023 1 1 Specialty Diagnoses / Procedures Referred By Contac t Referred To Contact Diagnoses Other hydronephrosis Procedures FLUORO IMAGING FOR UROLOGY Ryan Yepez MD [address] [facility] [address] [place] [address] Referral ID Status Reason Start Date Expiration Date V isits Requested Visits Authorized [id number] New Request 07/07/2022 08/01/2023 1 1 Specialty Diagnoses / Procedures Referred By Contac t Referred To Contact Procedures DIRECT ADMIT REQUEST Steve Munoz MBBS [address] [place] [address] Referral ID Status Reason Start Date Expiration Date V isits Requested Visits Authorized [id number] New Request 08/28/2023 09/21/2024 1 1 Specialty Diagnoses / Procedures Referred By Contac t Referred To Contact Radiology Diagnoses DARLENE (obstructive sleep apnea) Primary hypertension (CMS/HCC) Bilateral lower extremity edema Shortness of breath Procedures Echocardiogram 2D complete Zuly Bruno NP [address] [place] [address] Referral ID Status Reason Start Date Expiration Date Visits Requested Visits Authorized [id number] Incomplete Perform Procedure 01/06/2024 07/04/2024 1 1 Specialty Diagnoses / Procedures Referred By Contac t Referred To Contact Procedures US IMAGING REGIONAL ANESTHESIA Kehinde Gutierrez MD [address] [place] [address] Referral ID Status Reason Start Date Expiration Date V isits Requested Visits Authorized [id number] New Request 01/22/2024 02/15/2025 1 1 Specialty Diagnoses / Procedures Referred By Contac t Referred To Contact Cardiovascular Medicine Diagnoses Heart failure, diastolic, acute Kelvin Pacheco MD, MBBS [address] [place] [address] Referral ID Status Reason Start Date Expiration Date V isits Requested Visits Authorized [id number] New Request 01/20/2024 02/13/2025 1 1 Specialty Diagnoses / Procedures Referred By Contac t Referred To Contact Procedures US ABDOMEN LIVER DOPPLER US ABDOMEN LIVER TRANSPLANT DOPPLER Timothy Joseph MD [address] [facility] [address] [place] [address] Referral ID Status Reason Start Date Expiration Date V isits Requested Visits Authorized [id number] New Request 01/16/2024 02/09/2025 1 1 Specialty Diagnoses / Procedures Referred By Contac t Referred To Contact Procedures DVT/VTE RISK ASSESSMENT Kelvin Pacheco MD, MBBS [address] [place] [address] Referral ID Status Reason Start Date Expiration Date V isits Requested Visits Authorized [id number] New Request 01/16/2024 02/09/2025 1 1 Specialty Diagnoses / Procedures Referred By Contac t Referred To Contact Procedures PLATELET MONITORING PER PROTOCOL Kelvin Pacheco MD, MBBS [address] [place] [address] Referral ID Status Reason Start Date Expiration Date V isits Requested Visits Authorized [id number] New Request 01/16/2024 02/09/2025 1 1 Referral ID Status Reason Start Date Expiration Date V isits Requested Visits Authorized [id number] New Request 01/16/2024 02/09/2025 1 1 Specialty Diagnoses / Procedures Referred By Contac t Referred To Contact Procedures ECG Kelvin Pacheco MD, MBBS [address] [place] [address] Referral ID Status Reason Start Date Expiration Date V isits Requested Visits Authorized [id number] New Request 01/16/2024 02/09/2025 1 1 Specialty Diagnoses / Procedures Referred By Contac t Referred To Contact Diagnoses Liver lesion Procedures MRI ABDOMEN WITH AND WITHOUT CONTRAST CHG MRI ABDOMEN W/O & W/CONTRAST MATERIAL Smithcarl Daisha Tray, DO [address] [place] [address] Referral ID Status Reason Start Date Expiration Date V isits Requested Visits Authorized [id number] New Request 06/17/2024 07/12/2025 1 1 Advance Directives Documents on File Type Date Recorded 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 Advance Directives and Living Will Power of Golf Cart Mechanic Latest Code Status on File Code [...] Yovani Orr MD [address] [address] Status Reason Specialty Diagnoses / Procedures Referre d By Contact Referred To Contact Denied Diagnoses Alcoholic cirrhosis, unspecified whether ascites present Pre-transplant evaluation for liver transplant Procedures MRI ABDOMEN WITH CONTRAST IN MRI, ABDOMEN W/CONTRAST Yovani Orr MD [address] [address] Reason Comments Liver Recipient Evaluation Status Reason Specialty Diagnoses / Procedures Referred By Contact Referred To Contact New Request Transplant / Transplant Surgery Procedures PRE NEW PATIENT Yovani Orr MD [address] [address] Alfredito Restrepo MD [address] [place] [address] Reason Comments Reschedule Reason Comments Outside Medical Records Request Reason Comments Social Work Follow-up Reason Comments Kidney Stone Specialty Diagnoses / Procedures Referred By Contac t Referred To Contact Diagnoses Obstructing kidney stone, s/p kidney transplant 2019 Daya Saldana MD [address] [place] [address] [facility] [address] [place] [address] Referral ID Status Reason Start Date Expiration Date Visits Re quested Visits Authorized [id number] 1 1 Reason Comments Follow-up Reason Comments Kidney Recipient Follow-up Liver Recipient Follow-up Reason Comments Consult Reason Comments New Patient Hospital follow up Specialty Diagnoses / Procedures Referred By Contac t Referred To Contact Urology Diagnoses hosp fu with [address] prior Procedures NEW TO DOC/RET PATIENT Zuly Bruno CNP [address] [place] [address] Ryan Yepez MD [address] [facility] [address] [place] [address] Referral ID Status Reason Start Date Expiration Date Visits Re quested Visits Authorized [id number] Closed 06/27/2022 07/22/2023 1 1 Specialty Diagnoses / Procedures Referred By Contac t Referred To Contact Diagnoses FAYE (acute kidney injury) Procedures CT ABDOMEN/PELVIS WITHOUT CONTRAST CHG CT SCAN,ABDOMENT AND PELVIS,W/O CONTRAST Central Scheduling [address] [place] [phone] Referral ID Status Reason Start Date Expiration Date V isits Requested Visits Authorized [id number] Pending Review 05/16/2022 06/10/2023 1 1 Reason Comments Follow-up Specialty Diagnoses / Procedures Referred By Contac t Referred To Contact Urology Diagnoses 1 week fu post NT clamp Procedures RETURN PATIENT Zuly Bruno CNP [address] [place] [address] Ryan Yepez MD [address] [facility] [address] [place] [phone] Referral ID Status Reason Start Date Expiration Date Visits Requested Visits Authorized [id number] Authorized - 07/07/2022 08/01/2023 2 2 Specialty Diagnoses / Procedures Referred By Contac t Referred To Contact Diagnoses Other hydronephrosis Procedures FLUORO IMAGING FOR UROLOGY Ryan Yepez MD [address] [place] [address] [address] [place] [address] Referral ID Status Reason Start Date Expiration Date V isits Requested Visits Authorized [id number] New Request 07/07/2022 08/01/2023 1 1 Specialty Diagnoses / Procedures Referred By Contac t Referred To Contact Urology Diagnoses 1 week fu post NT clamp Procedures RETURN PATIENT Zuly Bruno, SENIOR DATA MODELER [address] [place] [address] Ryan Yepez MD [address] [place] [address] [address] [place] [address] Referral ID Status Reason Start Date Expiration Date Visits Re quested Visits Authorized [id number] Closed 07/07/2022 08/01/2023 2 2 Reason Comments Liver Recipient Follow-up Reason Comments Kidney Recipient Follow-up Reason Comments Kidney Recipient Follow-up Specialty Diagnoses / Procedures Referred By Contac t Referred To Contact Diagnoses Kidney replaced by transplant Steve Munoz MBBS [address] [place] [address] [facility] [address] [place] [address] Referral ID Status Reason Start Date Expiration Date Visits Re quested Visits Authorized [id number] 1 1 Specialty Diagnoses / Procedures Referred By Contac t Referred To Contact Diagnoses Pleural effusion on right PNEUMONIA- HX LIVER AND KIDNEY TRANSPLANT Kevin Prince MD [address] [place] [address] [facility] [address] [place] [address] Referral ID Status Reason Start Date Expiration Date Visits Re quested Visits Authorized [id number] 1 1 Reason Comments New Patient Specialty Diagnoses / Procedures Referred By Contac t Referred To Contact Cardiovascular Medicine Diagnoses Heart failure, diastolic, acute Kelvin Pacheco MD, MBBS [address] 1[address] [place] [address] Referral ID Status Reason Start Date Expiration Date Visits Requested Visits Authorized [id number] Authorized - 01/20/2024 02/13/2025 5 5 Reason Comments Liver Recipient Follow-up Reason Onset Date Comments Med Refill 10/01/2024 (unrecognized sect ion and content) No Status Records FoundNo Status Records FoundNo Status Records FoundNo Status Records FoundNo Status Records FoundNo Status Records FoundNo Status Records Found INFORMATION SOURCE (unrecogn ized section and content) DATE CREATED AUTHOR 01/07/2020 [facility] DATE CREATED AUTHOR AUTHOR'S ORGANIZ ATION 01/27/2021 [facility] DATE CREATED AUTHOR AUTHOR'S ORGANIZ ATION 05/11/2023 [facility] DATE CREATED AUTHOR AUTHOR'S ORGANIZ ATION 06/03/2024 [facility] DATE CREATED AUTHOR AUTHOR'S ORGANIZ ATION 08/25/2024 [facility] DATE CREATED AUTHOR AUTHOR'S ORGANIZ ATION 09/09/2024 [facility] [place] [facility] DATE CREATED AUTHOR AUTHOR'S ORGANIZ ATION 09/10/2024 [facility] Care Teams (unrecognized sec tion and content) 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 Start Date End Date Zuly Bruno CNP PCP - General 07/19/18 Comfort Rivera, [address] [place] [address] Pharmacist Pharmacist 05/16/20 Angel Carpio 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 Start Date End Date Zuly Bruno CNP PCP - General 07/19/18 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 Start Date End Date Zuly Bruno CNP PCP - General 07/19/18 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 Start Date End Date Zuly Bruno CNP PCP - General 07/19/18 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 Start Date End Date Zuly Bruno CNP PCP - General 07/19/18 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 Start Date End Date Zuly Bruno CNP PCP - General 07/19/18 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 Start Date End Date Zuly Bruno CNP PCP - General 07/19/18 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 Start Date End Date Zuly Bruno CNP PCP - General 07/19/18 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 Start Date End Date Zuly Bruno CNP PCP - General 07/19/18 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 Start Date End Date Zuly Bruno CNP PCP - General 07/19/18 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 Start Date End Date Zuly Bruno CNP PCP - General 07/19/18 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 Start Date End Date BrianlatishaZuly tipton CNP PCP - General 07/19/18 Evan White DO [address] [place] [address] Infectious Disease Infectious Disease 09/09/23 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 Start Date End Date KristopherlydialatishaZuly tipton ROB PCP - General 07/19/18 Evan White DO [facility] [place] [address] Infectious Disease Infectious Disease 09/09/23 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 Start Date End Date Zuly Bruno CNP PCP - General 07/19/18 Evan White [place] [facility] [place] [address] Infectious Disease Infectious Disease 09/09/23 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 Start Date End Date Momo Verdugo MD PCP - General Family Medicine 05/21/23 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 Start Date End Date Momo Verdugo MD PCP - General Family Medicine 05/21/23 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 Start Date End Date Momo Verdugo MD PCP - General Family Medicine 05/21/23 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 Start Date End Date Zuly Bruno CNP PCP - General 07/19/18 Evan White [place] [facility] [place] [address] Infectious Disease Infectious Disease 09/09/23 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 Start Date End Date Zuly Bruno CNP PCP - General 07/19/18 Evan White DO [address] [place] [address] Infectious Disease Infectious Disease 09/09/23 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 Start Date End Date Zuly Bruno CNP PCP - General 07/19/18 Evan White DO [address] [place] [address] Infectious Disease Infectious Disease 09/09/23 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 Start Date End Date Zuly Bruno CNP PCP - General 07/19/18 Evan White DO [address] [place] [address] Infectious Disease Infectious Disease 09/09/23 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 Start Date End Date Zuly Bruno CNP PCP - General 07/19/18 Evan White DO [address] [place] [address] Infectious Disease Infectious Disease 09/09/23 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 Start Date End Date Zuly Bruno CNP PCP - General 07/19/18 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 Start Date End Date Zuly Bruno CNP PCP - General 07/19/18 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 Start Date End Date Zuly Bruno CNP PCP - General 07/19/18 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 Start Date End Date Zuly Bruno CNP PCP - General 07/19/18 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 Start Date End Date Zuly Bruno CNP PCP - General 07/19/18 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 Start Date End Date Zuly Bruno CNP PCP - General 07/19/18 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 Start Date End Date Zuly Bruno CNP PCP - General 07/19/18 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 Start Date End Date Momo Verdugo MD [address] [place] [address] PCP - General Family Medicine 02/11/24 Zuly Bruno NP [address] [place] [address] Nurse Practitioner Family Medicine 02/11/24 Kasandra Thomas DO [address] [place] [address] Referring Physician Neurology 02/17/24 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 Start Date End Date Momo Verdugo MD [address] [place] [address] PCP - General Family Medicine 02/11/24 Zuly Bruno NP [address] [place] [address] Nurse Practitioner Family Medicine 02/11/24 Kasandra Thomas DO [address] [place] [address] Referring Physician Neurology 02/17/24 Scheduled Active and [...] Until Discontinued 1999 (Given - Provider: Carolyn Isaac, SAMI) 2058 (Given - Provider: Carolyn Isaac, SAMI) 2100 (Canceled Entry - Provider: System Discharge [...] mg/mL for [facility] IR NEEDED, Starting on 6/18/22 at 1101, Until Thu05/20/22 at 2110, CT [...] Thu05/15/22 at 2206, Until Thu05/20/22 at 0, Carrier Fluid - See Admin. Inst, 250mL [...] RN) 08 (Given - Provider: Terra Heart, RN) 0957 [...] needed. 0753 (Given - Provider: Aixa Holden RN)2036 (Given - Provider: Girish Nunez RN) 0829 [...] Tati Ahmadi RN) 0842 (Given - Provider: Trera Heart RN)1053 (MAR Hold - Provider: Automatic [...] 0841 (Given - Provider: Terra Heart RN)105 ([facility] Hold - Provider: Automatic Transfer - Reason: Transfer to a Procedural area)141 ([facility] Unhold - Provider: Automatic Transfer)2008 (Given - Provider: Tati Ahmadi RN) 09 (Given - Provider: Terra Heart RN) Sulfamethoxazole-trime thoprim (BACTRIM DS) 800-160 MG per tablet 1 tablet 1 tablet, Oral, THREE TIMES WEEKLY (Once per day on Thursday), First dose on Thu01/18/24 at 0900, Until Discontinued 0846 (Given - Provider: Terra Heart RN)1052 ([facility] Hold - Provider: Automatic Transfer - Reason: Transfer to a Procedural area)1413 ([facility] Unhold - Provider: Automatic Transfer) tacrolimus (PROGRAF) susp 0.2 mg 0.2 mg, Oral, CUSTOM FREQUENCY (Once per day on Thursday), First dose on Thu01/16/24 at 0900, Until Discontinued, Caution check route of administration. For sublingual administration, place liquid under tongue and allow absorption. 0842 (Given - Provider: Erica Gudino RN) 1052 ([facility] Hold - Provider: Automatic Transfer - Reason: Transfer to a Procedural area)1413 ([facility] Unhold - Provider: Automatic Transfer) 922 (Given - Provider: Terra Heart RN) Tamsulosin HCl (FLOMAX) capsule 0.4 mg 0.4 mg, Oral, DAILY, First dose on Thu01/16/24 at 0900, Until Discontinued, Slow release product. Do not chew or crush 0842 (Given - Provider: Erica Gudino RN) 0841 (Given - Provider: Terra Heart RN)105 ([facility] Hold - Provider: Automatic Transfer - Reason: Transfer to a Procedural area)141 ([facility] Unhold - Provider: Automatic Transfer) 09 (Given [...] 0841 (Given - Provider: Terra Heart RN)1053 ([facility] Hold - Provider: Automatic Transfer - Reason: Transfer to a Procedural area)1414 ([facility] Unhold - Provider: Automatic Transfer) 0920 (Given [...] from all sources in 24 hours. 1053 ([facility] Hold - Provider: Automatic Transfer - Reason: Transfer to a Procedural area)1414 ([facility] Unhold - Provider: Automatic Transfer)1806 (Given - [...] 200-200 mg and Simethicone 20 mg) 1053 ([facility] Hold - Provider: Automatic Transfer - Reason: Transfer to a Procedural area)1414 ([facility] Unhold - Provider: Automatic Transfer) guaiFENesin (ROBITUSSIN) oral solution 400 mg 400 mg, Oral, EVERY 6 HOURS NEEDED, Starting on 01/16/24 at 0202, Until 01/23/24 at 1752, Cough, Congestion 1053 ([facility] Hold - Provider: Automatic Transfer - Reason: Transfer to a Procedural area)1414 ([facility] Unhold - Provider: Automatic Transfer) HYDROmorphone (DILAUDID) [...] 0016, Until 01/23/24 at 1752, Insomnia 1053 ([facility] Hold - Provider: Automatic Transfer - Reason: Transfer to a Procedural area)1414 ([facility] Unhold - Provider: Automatic Transfer)2355 (Given - Provider: Tati Ahmadi RN) Ondansetron (ZOFRAN) tablet 4 mg(Linked Group 1) 4 mg, Oral, EVERY 6 HOURS NEEDED, Starting on 01/16/24 at 0202, Until 01/23/24 at 1752, Nausea / Vomiting, 1st line for Nausea/Vomiting 1053 ([facility] Hold - Provider: Automatic Transfer - Reason: Transfer to a Procedural area)1414 ([facility] Unhold - Provider: Automatic Transfer)1809 (See Alternative - Provider: Terra Heart RN) 0430 (See Alternative - Provider: Tati Ahmadi RN)1415 (Given - Provider: Terra Heart RN) Ondansetron 4mg/2ml (ZOFRAN) injection 4 mg(Linked Group 1) 4 mg, Intravenous, EVERY 6 HOURS NEEDED, Starting on 01/16/24 at 0202, Until 01/23/24 at 1752, Nausea / Vomiting, 1st line for Nausea/Vomiting 1053 ([facility] Hold - Provider: Automatic Transfer - Reason: Transfer to a Procedural area)1414 ([facility] Unhold - Provider: Automatic Transfer)1809 (Given - [...] 01/23/24 at 1752, Constipation 1st Line 1053 ([facility] Hold - Provider: Automatic Transfer - Reason: Transfer to a Procedural area)1414 ([facility] Unhold - Provider: Automatic Transfer) Prochlorperazine (COMPAZINE) injection 10 mg 10 mg, Intravenous, EVERY 6 HOURS NEEDED, Starting on 01/17/24 at 1538, Until 01/23/24 at 1752, Nausea / Vomiting, Refractory Nausea Vomiting, For IV route: dilute dose with 10mL normal saline and give by slow IV push at a rate of 5mg/min. Maximum of 40mg/day. 1053 ([facility] Hold - Provider: Automatic Transfer - Reason: Transfer to a Procedural area)1414 ([facility] Unhold - Provider: Automatic Transfer)2349 (Given - [...] the intermittent or piggy back medication. 1053 ([facility] Hold - Provider: Automatic Transfer - Reason: [...] BE BASED ON THE PRIMARY CLINICAL RECORDS. [employer] [facility]. provides no warranty or guarantee of the accuracy or completeness of information [id number]
== END 2024-10-10 06:32 | disposition home or self-care (01) ==
LOC: LAB 06:32
PROVIDERS: PCP Nurse Practitioner
DX: Z94.4 Liver transplant status (principal); Z94.0 Kidney transplant status; Z51.81 Encounter for therapeutic drug level monitoring; Z48.298 Encounter for aftercare following other organ transplant
CPT/HCPCS: 36415; 86612; 87385

== ENCOUNTER 2024-10-10 06:36 | Outpatient (OUT) | payer MEDICARE, MEDICAID, SELFPAY ==
--- OUTSIDE RECORDS SUMMARY | 2024-10-10 06:45 | XMS_ITS | CCD ---
Author Organization [facility] Care Team Providers Care Library Services Coordinator Name Role Phone Kiana Zuly Unavailable [...] Unavailable AICHHOLZ, ZULY Primary Care Unavailable Aichholz [facility], [facility] Primary Care Provider Miguel [facility] Shirin [facility],PharmD, Angel Unavailable Unavailab makayla [facility],PharmD, Te Unavailable Unavai lable Aicholz [facility] Primary Care Provider CRISTINA, DR BURCH Admitting Unavailable MISC, DR BURCH Consulting Unavailable AICHHOLZ, COWLMAN ZULY Primary Care Unavailable MISC, DR BURCH Attending Unavailable MISC, DR BURCH Admitting Unavailable MISC, DR BURCH Consulting Unavailable AICHHOLZ, COWLMAN ZULY Primary Care Unavailable MISC, DR BURCH Attending Unavailable ARCELIA PIZARRO Consulting Unavailable KE BURNHAM Attending Unavailable KE BURNHAM Admitting Unavailable DR MÓNICA JIMENEZ Consulting Unavailable AICHHOLZ, COWLMAN ZULY Primary Care Unavailable KE BURNHAM Consulting Unavailable MISC, DR BURCH Consulting Unavailable MISC, DR BURCH Attending Unavailable AICHHOLZ, COWLMAN ZULY Primary Care Unavailable MISC, DR BURCH Admitting Unavailable MISC, DR BURCH Consulting Unavailable MISC, DR DOCTOR Attending Unavailable AICHHOLZ, COWLMAN ZULY Primary Care Unavailable MISC, DOCTOR Admitting Unavailable MISC, DR DOCTOR Consulting Unavailable AICHHOLZ, COWLMAN ZULY Primary Care Unavailable MISC, DOCTOR Admitting Unavailable MISC, DR DOCTOR Attending Unavailable MELINDA, DR GEORGE Munoz Consulting Unavailable MELINDA, DR GEORGE Munoz Attending Unavailable AICHHOLZ, COWLMAN ZULY Primary Care Unavailable MELINDA, DR GEORGE Munoz Admitting Unavailable NAUN ., KE Consulting Unavailable MIRANDA, LYNDSAY Consulting Unavailable MELINDA, DR GEORGE Munoz Consulting Unavailable NAUN ., KE Attending Unavailable NAUN ., KE Admitting Unavailable AICHHOLZ, COWLMAN ZULY Primary Care Unavailable NAUN ., KE Consulting Unavailable GIAN HERRING Consulting Unavailable AICHHOLZ, COWLMAN ZULY Consulting Unavailable AICHHOLZ, COWLMAN ZULY Attending Unavailable AICHHOLZ, COWLMAN ZULY Admitting Unavailable AICHHOLZ, COWLMAN ZULY Primary Care Unavailable MISC, DOCTOR Consulting Unavailable MISC, DOCTOR Admitting Unavailable MISC, DOCTOR Attending Unavailable AICHHOLZ, COWLMAN ZULY Primary Care Unavailable MISC, DR DOCTOR Consulting Unavailable MISC, DR DOCTOR Attending Unavailable MISC, DR DOCTOR Admitting Unavailable AICHHOLZ, COWLMAN ZULY Primary Care Unavailable MISC, DOCTOR Admitting Unavailable MISC, DOCTOR Consulting Unavailable MISC, DR DOCTOR Attending Unavailable AICHHOLZ, COWLMAN ZULY Primary Care Unavailable MISC, DOCTOR Admitting Unavailable MISC, DR DOCTOR Consulting Unavailable AICHHOLZ, COWLMAN ZULY Primary Care Unavailable MISC, DR DOCTOR Attending Unavailable MISC, DOCTOR Admitting Unavailable MISC, DR DOCTOR Consulting Unavailable AICHHOLZ, COWLMAN ZULY Primary Care Unavailable MISC, DR DOCTOR Attending Unavailable AICHHOLZ, COWLMAN ZULY Consulting Unavailable AICHHOLZ, COWLMAN ZULY Attending Unavailable AICHHOLZ, COWLMAN ZULY Admitting Unavailable AICHHOLZ, COWLMAN ZULY Primary Care Unavailable DR MÓNICA JIMENEZ Consulting Unavailable Aichholz [facility], Zuly Primary Care Provider Evan White DO Unavailable Aichholz [facility], Zuly Primary Care Provider [phone] Evan White DO Unavailable Momo Verdugo MD Primary Care Provider Aichholz COWLMAN, Zuly Primary Care Provider [phone] MIGUEL CARDONA Attending Unavailable AICHHOLZ, ZULY Attending Unavailable AICHHOLZ, ZULY Attending Unavailable PALMA PALACIOS Attending Unavailable AICHHOLZ, ZULY Referring Unavailable KELBLEY, FIDELINA Attending Unavailable AICHHOLZ, ZULY Referring Unavailable BRINK, JOHNNA Attending Unavailable AICHHOLZ, ZULY Referring Unavailable BRINK, JOHNNA Attending Unavailable AICHHOLZ, UZLY Referring Unavailable BRINK, JOHNNA Attending Unavailable AICHHOLZ, [...] Provider Zuly Bruno NP Unavailable Martha Kasandra Unavailable Allergies Allergy Classification Reported Allergen(s) Allergy Type Date of Onset Reaction(s) Facility (2 sources) Shellfish; Translations: [SHELLFISH DERIVED] Propensity to adverse reactions (disorder) 8 [facility] Repository (20 sources) Shellfish-Deriv ed Products Propensity to adverse reactions to drug 9 [facility] (3 sources) Shellfish; Translations: [shellfish] Drug allergy (disorder) Anaphylaxis (disorder) [facility] Rep[facility] Medications Current Medications Medication Drug [...] 1 capsule by mouth once daily b fzuuuhf-L-oxzaf acid (NEPHROCAPS) 1 MG capsule Take 1 [...] ankle pain. 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 White - [phone] [facility] - [phone] Each 09/10/2023 01/19/2024 Discontinued (Medication Reconciliation (suppress cancel msg)) Start: 09-10-2023 CUSTOM MEDICAT ION Labs to be obtained: 1- Tacrolimus level, trough - collect twice weekly until 09/24/23, then weekly until 10/08/23, them once every two weeks there after. 2- Itraconazole level - obtain once between 09/14-09/18. 3- Chem 6 - Obtain weekly while on itraconazole Fax results to: Dr. White - [phone] [facility] - [phone] Each 0 09/10/2023 Active Diatrizoate (1 [...] Active take 1 tablet by [facility] once daily magnesium oxide (MAG-OX) 400 [...] Coronary arteriosclerosis; Translations: [Atherosclerotic heart disease of [place] coronary artery without angina pectoris] Onset: 3 [...] sources) Taking high risk medication; Translations: [Other rodent exterminator (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] Episodic Other aftercare (1 [...] 05-10-2020 Episodic Other aftercare (1 source) Other rodent exterminator (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; Translations: [OTH SKILLED NURSING 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 THERAPY] Onset: 2 Episodic Other aftercare (1 source) [facility] (current) use of aspirin; Translations: [SKILLED NURSING CURRENT USE OF ASPIRIN] Onset: 2 Episodic [...] WITH AUTO DIFFon BASOPHILS ABSOLUTE AUTO 0 [facility] Basophils/100 WBC (Bld) 0.6 % 0.2 - 2.0 % [facility] Eosinophils/100 WBC (Bld) 3.2 % 0.9 - 7.0 % [facility] Erythrocyte distribution width (RBC) [Ratio] 12.4 % 11.0 - 15.0 % [facility] Hematocrit (Bld) [Volume fraction] 47 % 42.0 - 54.0 % [facility] Hemoglobin (Bld) [Mass/Vol] 15.8 g/dL 14.0 - 18.0 g/dL [facility] IMMATURE GRANULOCYTES ABS AUTO 0.01 [facility] Immature granulocytes/100 WBC (Bld) 0.2 % 0.0 - 0.5 % [facility] Interpretation and review of laboratory results Abnormal [facility] LYMPHOCYTES ABSOLUTE AUTO 1.1 Low [facility] Lymphocytes/100 WBC (Bld) 22.8 % 20.5 - 60.0 % [facility] MCH (RBC) [Entitic mass] 29.6 pg 25.9 - 34.0 pg [facility] MCHC (RBC) [Mass/Vol] 33.6 g/dL 29.9 - 35.2 g/dL [facility] MCV (RBC) [Entitic vol] 88 fL 80.0 - 94.0 fL [facility] MONOCYTES ABSOLUTE AUTO 0.4 [facility] Monocytes/100 WBC (Bld) 8 % 1.7 - 12.0 % [facility] NEUTROPHILS ABSOLUTE AUTO 3.3 [facility] Neutrophils/100 WBC (Bld) 65.2 % 43.0 - 75.0 % [facility] Platelet mean volume (Bld) [Entitic vol] 9.3 fL Low 9.5 - 13.5 fL [facility] RBC 5.34 [facility] WBC 5 [facility] ALL CBC WITH AUTO DIFFon BASOPHILS ABSOLUTE AUTO 0 [facility] Basophils/100 WBC (Bld) 0.6 % 0.2 - 2.0 % [facility] Eosinophils/100 WBC (Bld) 2.9 % 0.9 - 7.0 % [facility] Erythrocyte distribution width (RBC) [Ratio] 12.5 % 11.0 - 15.0 % [facility] Hematocrit (Bld) [Volume fraction] 47.1 % 42.0 - 54.0 % [facility] Hemoglobin (Bld) [Mass/Vol] 15.2 g/dL 14.0 - 18.0 g/dL [facility] IMMATURE GRANULOCYTES ABS AUTO 0.01 [facility] Immature granulocytes/100 WBC (Bld) 0.2 % 0.0 - 0.5 % [facility] Interpretation and review of laboratory results Abnormal [facility] LYMPHOCYTES ABSOLUTE AUTO 1.6 [facility] Lymphocytes/100 WBC (Bld) 32.7 % 20.5 - 60.0 % [facility] MCH (RBC) [Entitic mass] 28.5 pg 25.9 - 34.0 pg [facility] MCHC (RBC) [Mass/Vol] 32.3 g/dL 29.9 - 35.2 g/dL [facility] MCV (RBC) [Entitic vol] 88.4 fL 80.0 - 94.0 fL [facility] MONOCYTES ABSOLUTE AUTO 0.4 [facility] Monocytes/100 WBC (Bld) 8.5 % 1.7 - 12.0 % [facility] NEUTROPHILS ABSOLUTE AUTO 2.6 [facility] Neutrophils/100 WBC (Bld) 55.1 % 43.0 - 75.0 % [facility] Platelet mean volume (Bld) [Entitic vol] 9.3 fL Low 9.5 - 13.5 fL [facility] TBH EO # 0.1 [facility] TB PLT 225 [facility] TB RBC 5.33 [facility] WBC 4.8 [facility] 36on 06-01-2024 36 Regarding echo performed on 05/18/2024: MD Cinda Batres MA Please tell him the echo was ok and showed a small residual fluid around the heart. This is significant improvement from before. Follow up as planned. Patient informed and he verbalized understanding. Normal [facility] Office Visiton 05-13-2024 Follow-up visit [id number] George Styles 1970 M Date Provider Department Center 05/13/2024 MIGUEL PARADA BESSY Lopez Family History Problem Relation Age of Onset Coronary artery disease Mother Coronary artery disease Father Family Status - Relation Status Age at Mother Father Level of Service:17184 [place] OFFICE/OUTPATIENT ESTABLISHED LOW MDM 20 MIN Reason for Visit and Comments: Follow-up [785415] - Yearly follow up Normal [facility] B-TYPE NATRIURETIC PEPTIDE ( BRAIN)on 02-26-2024 Interpretation and review of laboratory results Normal [facility] Natriuretic peptide B (Bld) [Mass/Vol] 72 pg/mL 0 - 100 pg/mL [facility] Natriuretic peptide B (Bld) [Mass/Vol] 72 pg/mL Normal 0-100 [facility] Comment on above: Performed By: #### C HM7, HFP, MGO #### [facility] (DEFAULT) [address] [place] [address] CHEM 6 (LYTES, BUN CREA)on 0 02-26-2024 Anion gap [Moles/Vol] 13 mmol/L 7 - 17 mmol/L [facility] Chloride [Moles/Vol] 107 mmol/L 98 - 10 8 mmol/L [facility] CO2 [Moles/Vol] 25 mmol/L 21 - 31 mmol/L [facility] Creatinine [Mass/Vol] 1.23 mg/dL 0.70 - 1.30 mg/dL [facility] eGFR, CKD-EPI, Male 70 - PINF [facility] Comment on above: Reported eGFR is bas ed on the CKD-EPI 2020 equation using creatinine, age, and sex. Potassium [Moles/Vol] 4.2 mmol/L 3.5 - 5.0 mmol/L [facility] Sodium [Moles/Vol] 141 mmol/L 135 - 145 mmol/L [facility] Urea nitrogen [Mass/Vol] 17 mg/dL 7 - 25 mg/dL [facility] Urea nitrogen/Creatinine [Mass ratio] 14 mg/mg [facility] Anion gap [Moles/Vol] 13 mmol/L Normal 7-17 [facility] Comment on above: Performed By: #### C A, CHM7, HFP, IPB, MGO #### [facility] (DEFAULT) [address] [place] [address] Chloride [Moles/Vol] 107 mmol/L Normal 98-108 [facility] Comment on above: Performed By: #### C A, CHM7, HFP, IPB, MGO #### [facility] (DEFAULT) [address] [place] [address] CO2 [Moles/Vol] 25 mmol/L Normal 21-31 [facility] Comment on above: Performed By: #### C A, CHM7, HFP, IPB, MGO #### [facility] (DEFAULT) [address] [place] [address] Creatinine [Mass/Vol] 1.23 mg/dL Normal 0.70-1.30 [facility] Comment on above: Performed By: #### C Tray, CHM7, HFP, IPB, MGO #### [facility] (DEFAULT) [address] [place] [address] GFR/1.73 sq M.predicted among non-blacks MDRD (S/P/Bld) [Vol rate/Area] 70 mL/min/{1.73_m2} Normal >=60 [facility] Comment on above: Result Comment: Repo rted eGFR is based on the CKD-EPI 2020 equation using creatinine, age, and sex. Performed By: #### C Tray, CHM7, HFP, IPB, MGO #### [facility] (DEFAULT) [address] [place] [address] Potassium [Moles/Vol] 4.2 mmol/L Normal 3.5-5.0 [facility] Comment on above: Performed By: #### C Tray, CHM7, HFP, IPB, MGO #### [facility] (DEFAULT) [address] [place] [address]65 Sodium [Moles/Vol] 141 mmol/L Normal 135-145 [facility] Comment on above: Performed By: #### C A, CHM7, HFP, IPB, MGO #### [facility] (DEFAULT) [address] [place] [address]42 Urea nitrogen [Mass/Vol] 17 mg/dL Normal 7-25 [facility] Comment on above: Performed By: #### C A, CHM7, HFP, IPB, MGO #### [facility] (DEFAULT) [address] [place] [address] Urea nitrogen/Creatinine [Mass ratio] 14 mg/mg Normal [facility] Comment on above: Performed By: #### C A, CHM7, HFP, IPB, MGO #### [facility] (DEFAULT) [address] [place] [address]200 CBC,PLATELETSon 01-23-2024 Erythrocyte distribution width (RBC) [Ratio] 14.2 % 10.9 - 14.3 % [facility] Hematocrit (Bld) [Volume fraction] 37.0 % Low 39.6 - 48.8 % [facility] Hemoglobin (Bld) [Mass/Vol] 12.0 g/dL Low 13.4 - 16.8 g/dL [facility] Interpretation and review of laboratory results Abnormal [facility] MCH (RBC) [Entitic mass] 28.6 pg 26.1 - 33.3 pg [facility] MCHC (RBC) [Mass/Vol] 32.4 g/dL 31.9 - 36.5 g/dL [facility] MCV (RBC) [Entitic vol] 88.1 fL 79.0 - 94.5 fL [facility] Platelet mean volume (Bld) [Entitic vol] 10.4 fL 8.7 - 12.3 fL [facility] Platelets (Bld) [#/Vol] 170 10*3/uL 146 - 337 K/uL [facility] RBC (Bld) [#/Vol] 4.20 10*6/uL Low [facility] WBC (Bld) [#/Vol] 3.70 10*3/uL Low 3.73 - 10. 10 K/uL [facility] Hematocrit (Bld) [Volume fraction] 37.0 % Low 39.6-48.8 [facility] Comment on above: Performed By: #### C HM7, HFP, MGO #### [facility] (DEFAULT) [address] [place] [address]168 Hemoglobin (Bld) [Mass/Vol] 12.0 g/dL Low 13.4-16.8 [facility] Comment on above: Performed By: #### Chinedu HM7, HFP, MGO #### [facility] (DEFAULT) [address] [place] [address]250 MCV (RBC) [Entitic vol] 88.1 fL Normal 79.0-94.5 [facility] Comment on above: Performed By: #### C HM7, HFP, MGO #### [facility] (DEFAULT) [address] [place] [address] 26590 Mean Cell Hgb 28.6 pg Normal 26.1-33.3 [facility] Comment on above: Performed By: #### C HM7, HFP, MGO #### [facility] (DEFAULT) [address] [place] [address] 37705 Mean Cell Hgb Conc 32.4 g/dL Normal 31.9-36.5 [facility] Comment on above: Performed By: #### C HM7, HFP, MGO #### [facility] (DEFAULT) [address] [place] [address] Platelet mean volume (Bld) [Entitic vol] 10.4 fL Normal 8.7-12.3 [facility] Comment on above: Performed By: #### C HM7, HFP, MGO #### [facility] (DEFAULT) [address] [place] [address] Platelets (Bld) [#/Vol] 170 10*3/uL Normal 146-337 [facility] Comment on above: Performed By: #### C HM7, HFP, MGO #### [facility] (DEFAULT) [address] [place] [address] 63632 RBC (Bld) [#/Vol] 4.20 10*6/uL Low 4.38-5.83 [facility] Comment on above: Performed By: #### C HM7, HFP, MGO #### [facility] (DEFAULT) [address] [place] [address] 60387 RBC Distribution 14.2 % Normal 10.9-14.3 [facility] Comment on above: Performed By: #### C HM7, HFP, MGO #### [facility] (DEFAULT) [address] [place] [address] [place] [address] WBC (Bld) [#/Vol] 3.70 10*3/uL Low 3.73-10.10 [facility] Comment on above: Performed By: #### C JASMYNE, TAVO, MGO #### [facility] (DEFAULT) [address] [place] [address] CHEM 7 (LYTES,BUN,CREA,GLUC) on 01-23-2024 Anion gap [Moles/Vol] 14 mmol/L 7 - 17 mmol/L [facility] Chloride [Moles/Vol] 105 mmol/L 98 - 10 8 mmol/L [facility] CO2 [Moles/Vol] 25 mmol/L 21 - 31 mmol/L [facility] Creatinine [Mass/Vol] 1.32 mg/dL High 0.70 - 1.30 mg/dL [facility] eGFR, CKD-EPI, Male 65 - PINF [facility] Comment on above: Reported eGFR is bas ed on the CKD-EPI 2020 equation using creatinine, age, and sex. Glucose [Mass/Vol] 94 mg/dL 70 - 99 mg/dL [facility] Osmolality Calc [Osmolality] 296 [facility] Potassium [Moles/Vol] 3.8 mmol/L 3.5 - 5.0 mmol/L [facility] Sodium [Moles/Vol] 140 mmol/L 135 - 145 mmol/L [facility] Urea nitrogen [Mass/Vol] 23 mg/dL 7 - 25 mg/dL [facility] Urea nitrogen/Creatinine [Mass ratio] 17 mg/mg [facility] Anion gap [Moles/Vol] 14 mmol/L Normal 7-17 [facility] Comment on above: Performed By: #### C HMJessica, TAVO, MGO #### [facility] (DEFAULT) [address] [place] [address] Chloride [Moles/Vol] 105 mmol/L Normal 98-108 [facility] Comment on above: Performed By: #### Chinedu HMJessica, HFP, MGO #### [facility] (DEFAULT) [address] [place] [address] CO2 [Moles/Vol] 25 mmol/L Normal 21-31 [facility] Comment on above: Performed By: #### C HM7, HFP, MGO #### [facility] (DEFAULT) [address] [place] [address] Creatinine [Mass/Vol] 1.32 mg/dL High 0.70-1.30 [facility] Comment on above: Performed By: #### C HM7, HFP, MGO #### [facility] (DEFAULT) [address] [place] [address] 37969 GFR/1.73 sq M.predicted among non-blacks MDRD (S/P/Bld) [Vol rate/Area] 65 mL/min/{1.73_m2} Normal >=60 [facility] Comment on above: Result Comment: Repo rted eGFR is based on the CKD-EPI 2020 equation using creatinine, age, and sex. Performed By: #### C HM7, HFP, MGO #### [facility] (DEFAULT) [address] [place] [address]000 Glucose [Mass/Vol] 94 mg/dL Normal 70-99 [facility] Comment on above: Performed By: #### C HM7, HFP, MGO #### [facility] (DEFAULT) [address] [place] [address] 37784 Osmolality [Osmolality] 296 mosm/kg Normal 278-305 [facility] Comment on above: Performed By: #### C HM7, HFP, MGO #### [facility] (DEFAULT) [address] [place] [address] Potassium [Moles/Vol] 3.8 mmol/L Normal 3.5-5.0 [facility] Comment on above: Performed By: #### C HM7, HFP, MGO #### [facility] (DEFAULT) [address] [place] [address] 60065 Sodium [Moles/Vol] 140 mmol/L Normal 135-145 [facility] Comment on above: Performed By: #### C HM7, HFP, MGO #### [facility] (DEFAULT) [address] [place] [address] Urea nitrogen [Mass/Vol] 23 mg/dL Normal 7-25 [facility] Comment on above: Performed By: #### C HM7, HFP, MGO #### [facility] (DEFAULT) [address] [place] [address] Urea nitrogen/Creatinine [Mass ratio] 17 mg/mg Normal [facility] Comment on above: Performed By: #### C HM7, HFP, MGO #### [facility] (DEFAULT) [address] [place] [address] GLUCOSE POCon 01-23-2024 Glucose [Mass/Vol] 88 mg/dL 70 - 99 mg/dL [facility] POC Sample Type [facility] Test performed at address of the patient encounter. [facility] Glucose [Mass/Vol] 191 mg/dL High 70 - 99 mg/dL [facility] Interpretation and review of laboratory results Abnormal [facility] Test performed at address of the patient encounter. [facility] HEPATIC FUNCTION PANELon Albumin [Mass/Vol] 3.9 g/dL 3.5 - 5.0 g/dL [facility] ALP [Catalytic activity/Vol] 83 U/L 32 - 126 U/L [facility] ALT [Catalytic activity/Vol] 9 U/L Low 10 - 52 U/L [facility] AST [Catalytic activity/Vol] 17 U/L 10 - 39 U/L [facility] Bilirubin [Mass/Vol] 1.6 mg/dL High NINF - 1.5 mg/dL [facility] Bilirubin.direct [Mass/Vol] 0.4 mg/dL High NINF - 0.3 mg/dL [facility] Protein [Mass/Vol] 6.6 g/dL 6.4 - 8.3 g/dL [facility] Albumin [Mass/Vol] 3.9 g/dL Normal 3.5-5.0 [facility] Comment on above: Performed By: #### C HM7, HFP, MGO #### [facility] (DEFAULT) [address] [place] [address]892 ALP [Catalytic activity/Vol] 83 U/L Normal 32-126 [facility] Comment on above: Performed By: #### C HM7, HFP, MGO #### [facility] (DEFAULT) [address] [place] [address] 40182 ALT [Catalytic activity/Vol] 9 U/L Low 10-52 [facility] Comment on above: Performed By: #### C HM7, HFP, MGO #### [facility] (DEFAULT) [address] [place] [address] 27734 AST [Catalytic activity/Vol] 17 U/L Normal 10-39 [facility] Comment on above: Performed By: #### C HM7, HFP, MGO #### [facility] (DEFAULT) [address] [place] [address] 47766 Bilirubin [Mass/Vol] 1.6 mg/dL High <1.5 [facility] Comment on above: Performed By: #### Chinedu HM7, HFP, MGO #### [facility] (DEFAULT) [address] [place] [address] 26576 Bilirubin.indirect [Mass/Vol] 0.4 mg/dL High <0.3 [facility] Comment on above: Performed By: #### Chinedu HM7, HFP, MGO #### [facility] (DEFAULT) [address] [place] [address] 28887 Protein [Mass/Vol] 6.6 g/dL Normal 6.4-8.3 [facility] Comment on above: Performed By: #### C HM7, HFP, MGO #### [facility] (DEFAULT) [address] [place] [address] ITRACONAZOLE LEVELon 024 Hydroxyitraconazole [Mass/Vol] 7.6 mcg/mL [facility] Comment on above: REFERENCE VALUE No therapeutic range established; activity and serum concentration are similar to parent drug. ADDITIONAL INFORMATION This test was developed and its performance characteristics determined by [facility] in a manner consistent with CLIA requirements. This test has not been cleared or approved by the U.S. Food and Drug Administration. Test Performed by: [facility] [address] [place] [address] Supervisor [employer]: Rosendo Bose M.D. Ph.D.; CLIA# [id number] Itraconazole [Mass/Vol] 6.0 mcg/mL [facility] Comment on above: REFERENCE VALUE >0.5 (localized infection), >1.0 (systemic infection) [facility] MAGNESIUMon 01-23-2024 Interpretation and review of laboratory results Normal [facility] Magnesium [Mass/Vol] 1.8 mg/dL 1.6 - 2 .6 mg/dL [facility] Magnesium [Mass/Vol] 1.8 mg/dL Normal 1.6-2.6 [facility] Comment on above: Performed By: #### C JASMYNE, TAVO, MGO #### [facility] (DEFAULT) [address] [address] No Panel Informationon 01-23 Interpretation and review of laboratory results Abnormal [facility] TACROLIMUS LEVEL, TROUGH (RI E DRUG LEVEL)on 01-23-2024 Interpretation and review of laboratory results Normal [facility] Tacrolimus (Bld) [Mass/Vol] 7.0 ng/mL Bone Marrow Transplant: 4.0-12.0, Therapeutic: 5.0-15.0 [facility] Method performed is a chemiluminescent microparticle immunoasssay on the [employer] Senior [employer] Cpa i2000. The range is based on experience at [facility] and users should be aware that target concentrations vary widely depending on concomitant therapy, time post-transplant, and desired degree of immunosuppression. [facility] Tacrolimus, Trough 7.0 ng/mL Normal [facility] Susana ow Transplant: 4.0-12.0, Therapeutic: 5.0-15.0 [facility] Comment on above: Order Comment: Pleas e draw at specified interval PRIOR to dose. Do not hold dose to wait for level. Specimens batched twice per day, (M-F) and once per day weekendsMethod performed is a chemiluminescent microparticle immunoasssay on the [employer] Senior [employer] Cpa i2000.The range is based on experience at [facility] and users should be aware that target concentrations vary widely depending on concomitant therapy, time post-transplant, and desired degree of immunosuppression. Performed By: #### C A, CHM7, HFP, IPB, MGO #### [facility] (DEFAULT) [address] [place] [address] CARDIAC RHYTHM (SCANNED)on 0 01-22-2024 [facility] CBC,PLATELETSon 01-22-2024 Erythrocyte distribution width (RBC) [Ratio] 14.1 % 10.9 - 14.3 % [facility] Hematocrit (Bld) [Volume fraction] 41.5 % 39.6 - 48.8 % [facility] Hemoglobin (Bld) [Mass/Vol] 13.3 g/dL Low 13.4 - 16.8 g/dL [facility] Interpretation and review of laboratory results Abnormal [facility] MCH (RBC) [Entitic mass] 27.8 pg 26.1 - 33.3 pg [facility] MCHC (RBC) [Mass/Vol] 32.0 g/dL 31.9 - 36.5 g/dL [facility] MCV (RBC) [Entitic vol] 86.8 fL 79.0 - 94.5 fL [facility] Platelet mean volume (Bld) [Entitic vol] 10.5 fL 8.7 - 12.3 fL [facility] Platelets (Bld) [#/Vol] 186 10*3/uL 146 - 337 K/uL [facility] RBC (Bld) [#/Vol] 4.78 10*6/uL [facility] WBC (Bld) [#/Vol] 3.74 10*3/uL 3.73 - 10. 10 K/uL [facility] Hematocrit (Bld) [Volume fraction] 41.5 % Normal 39.6-48.8 [facility] Comment on above: Performed By: #### C JASMYNE, TAVO, MGO #### [facility] (DEFAULT) [address] [place] [address] Hemoglobin (Bld) [Mass/Vol] 13.3 g/dL Low 13.4-16.8 [facility] Comment on above: Performed By: #### Chinedu MEDLEY, HFP, MGO #### [facility] (DEFAULT) [address] [place] [address] MCV (RBC) [Entitic vol] 86.8 fL Normal 79.0-94.5 [facility] Comment on above: Performed By: #### Chinedu HMJessica, HFP, MGO #### [facility] (DEFAULT) [address] [place] [address] Mean Cell Hgb 27.8 pg Normal 26.1-33.3 [facility] Comment on above: Performed By: #### Chinedu HM7, HFP, MGO #### [facility] (DEFAULT) [address] [place] [address] 388[address] Mean Cell Hgb Conc 32.0 g/dL Normal 31.9-36.5 [facility] Comment on above: Performed By: #### C HM7, HFP, MGO #### [facility] (DEFAULT) [address] [place] [address] Platelet mean volume (Bld) [Entitic vol] 10.5 fL Normal 8.7-12.3 [facility] Comment on above: Performed By: #### C HM7, HFP, MGO #### [facility] (DEFAULT) [address] [place] [address] Platelets (Bld) [#/Vol] 186 10*3/uL Normal 146-337 [facility] Comment on above: Performed By: #### C HM7, HFP, MGO #### [facility] (DEFAULT) [address] [place] [address] RBC (Bld) [#/Vol] 4.78 10*6/uL Normal 4.38-5.83 [facility] Comment on above: Performed By: #### C HM7, HFP, MGO #### [facility] (DEFAULT) [address] [place] [address] RBC Distribution 14.1 % Normal 10.9-14.3 [facility] Comment on above: Performed By: #### Chinedu HM7, HFP, MGO #### [facility] (DEFAULT) [address] [place] [address] WBC (Bld) [#/Vol] 3.74 10*3/uL Normal 3.73-10.10 [facility] Comment on above: Performed By: #### C HM7, HFP, MGO #### [facility] (DEFAULT) [address] [place] [address] CHEM 7 (LYTES,BUN,CREA,GLUC) on 01-22-2024 Anion gap [Moles/Vol] 13 mmol/L 7 - 17 mmol/L [facility] Chloride [Moles/Vol] 109 mmol/L High 98 - 10 8 mmol/L [facility] CO2 [Moles/Vol] 23 mmol/L 21 - 31 mmol/L [facility] Creatinine [Mass/Vol] 1.10 mg/dL 0.70 - 1.30 mg/dL [facility] eGFR, CKD-EPI, Male 81 - PINF [facility] Comment on above: Reported eGFR is bas ed on the CKD-EPI 2020 equation using creatinine, age, and sex. Glucose [Mass/Vol] 84 mg/dL 70 - 99 mg/dL [facility] Interpretation and review of laboratory results Abnormal [facility] Osmolality Calc [Osmolality] 295 [facility] Potassium [Moles/Vol] 4.0 mmol/L 3.5 - 5.0 mmol/L [facility] Sodium [Moles/Vol] 141 mmol/L 135 - 145 mmol/L [facility] Urea nitrogen [Mass/Vol] 16 mg/dL 7 - 25 mg/dL [facility] Urea nitrogen/Creatinine [Mass ratio] 15 mg/mg [facility] Anion gap [Moles/Vol] 13 mmol/L Normal 7-17 [facility] Comment on above: Performed By: #### C HM7, HFP, MGO #### [facility] (DEFAULT) [address] [place] [address] Chloride [Moles/Vol] 109 mmol/L High 98-108 [facility] Comment on above: Performed By: #### C HM7, HFP, MGO #### [facility] (DEFAULT) [address] [place] [address] CO2 [Moles/Vol] 23 mmol/L Normal 21-31 [facility] Comment on above: Performed By: #### C HM7, HFP, MGO #### [facility] (DEFAULT) [address] [place] [address] Creatinine [Mass/Vol] 1.10 mg/dL Normal 0.70-1.30 [facility] Comment on above: Performed By: #### C HM7, HFP, MGO #### [facility] (DEFAULT) [address] [place] [address] GFR/1.73 sq M.predicted among non-blacks MDRD (S/P/Bld) [Vol rate/Area] 81 mL/min/{1.73_m2} Normal >=60 [facility] Comment on above: Result Comment: Repo rted eGFR is based on the CKD-EPI 2020 equation using creatinine, age, and sex. Performed By: #### C HM7, HFP, MGO #### [facility] (DEFAULT) [address] [place] [address] Glucose [Mass/Vol] 84 mg/dL Normal 70-99 [facility] Comment on above: Performed By: #### Chinedu HM7, HFP, MGO #### [facility] (DEFAULT) [address] [place] [address] Osmolality [Osmolality] 295 mosm/kg Normal 278-305 [facility] Comment on above: Performed By: #### Chinedu HM7, HFP, MGO #### [facility] (DEFAULT) [address] [place] [address] Potassium [Moles/Vol] 4.0 mmol/L Normal 3.5-5.0 [facility] Comment on above: Performed By: #### Chinedu HM7, HFP, MGO #### [facility] (DEFAULT) [address] [place] [address] Sodium [Moles/Vol] 141 mmol/L Normal 135-145 [facility] Comment on above: Performed By: #### Chinedu HM7, HFP, MGO #### [facility] (DEFAULT) [address] [place] [address] Urea nitrogen [Mass/Vol] 16 mg/dL Normal 7-25 [facility] Comment on above: Performed By: #### Chinedu HM7, HFP, MGO #### [facility] (DEFAULT) [address] [place] [address] Urea nitrogen/Creatinine [Mass ratio] 15 mg/mg Normal [facility] Comment on above: Performed By: #### C HM7, HFP, MGO #### [facility] (DEFAULT) [address] [place] [address] MAGNESIUMon 01-22-2024 Interpretation and review of laboratory results Normal [facility] Magnesium [Mass/Vol] 2.0 mg/dL 1.6 - 2 .6 mg/dL [facility] Magnesium [Mass/Vol] 2.0 mg/dL Normal 1.6-2.6 [facility] Comment on above: Performed By: #### M GO, CHM7 #### [facility] (DEFAULT) [address] [place] [address] No Panel Informationon 01-22 [facility] PT,INR,PTTon 01-22-2024 aPTT Coag (PPP) [Time] 29.2 s [facility] INR Coag (Bld) [Relative time] 1.1 {INR} 0.9 - 1.1 [facility] Interpretation and review of laboratory results Abnormal [facility] PT Coag (PPP) [Time] 14.3 s High [facility] aPTT Coag (Bld) [Time] 29.2 s Normal 24.0-34.3 [facility] Comment on above: Performed By: #### P TPTT #### [facility] (DEFAULT) [address] [place] [address] INR Coag (PPP) [Relative time] 1.1 {INR} Normal 0.9-1.1 [facility] Comment on above: Performed By: #### P TPTT #### [facility] (DEFAULT) [address] [place] [address] PT Coag (PPP) [Time] 14.3 s High 11.9-14.2 [facility] Comment on above: Performed By: #### P TPTT #### [facility] (DEFAULT) [address] [place] [address] TACROLIMUS LEVEL, TROUGH (RI E DRUG LEVEL)Ordered By: Sheree Jensen on 01-22-2024 Interpretation and review of laboratory results Normal [facility] Tacrolimus (Bld) [Mass/Vol] 7.9 ng/mL Bone Marrow Transplant: 4.0-12.0, Therapeutic: 5.0-15.0 [facility] Method performed is a chemiluminescent microparticle immunoasssay on the [employer] Senior [employer]ant Cpa i2000. The range is based on experience at [facility] and users should be aware that target concentrations vary widely depending on concomitant therapy, time post-transplant, and desired degree of immunosuppression. [facility] TACROLIMUS LEVEL, TROUGH (RI E DRUG LEVEL)on 01-22-2024 Tacrolimus, Trough 7.9 ng/mL Normal Bone Susana ow Transplant: 4.0-12.0, Therapeutic: 5.0-15.0 [facility] Comment on above: Order Comment: Pleas e draw at specified interval PRIOR to dose. Do not hold dose to wait for level. Specimens batched twice per day, (M-F) and once per day weekendsMethod performed is a chemiluminescent microparticle immunoasssay on the [employer] Senior [employer]ant Cpa i2000.The range is based on experience at [facility] and users should be aware that target concentrations vary widely depending on concomitant therapy, time post-transplant, and desired degree of immunosuppression. Performed By: #### C A, CHM7, HFP, IPB, MGO #### [facility] (DEFAULT) [address] [place] [address] TYPE AND SCREENon 01-22-2024 ABO/RH(D) TYPE Positive [facility] ABO/RH(D) TYPE Positive Normal [facility] Comment on above: Performed By: #### C HM7, HFP, MGO #### [facility] (DEFAULT) [address] [address] [place] Unspecified body regionOr dered By: Unassigned Pacs on 01-22-2024 [facility] Work Phone: [place] Unspecified body regionon 01-22-2024 Radiology Study observation (narrative) [facility] CBC,PLATELETSon 01-21-2024 Erythrocyte distribution width (RBC) [Ratio] 14.0 % 10.9 - 14.3 % [facility] Hematocrit (Bld) [Volume fraction] 39.4 % Low 39.6 - 48.8 % [facility] Hemoglobin (Bld) [Mass/Vol] 12.7 g/dL Low 13.4 - 16.8 g/dL [facility] Interpretation and review of laboratory results Abnormal [facility] MCH (RBC) [Entitic mass] 28.0 pg 26.1 - 33.3 pg [facility] MCHC (RBC) [Mass/Vol] 32.2 g/dL 31.9 - 36.5 g/dL [facility] MCV (RBC) [Entitic vol] 87.0 fL 79.0 - 94.5 fL [facility] Platelet mean volume (Bld) [Entitic vol] 10.2 fL 8.7 - 12.3 fL [facility] Platelets (Bld) [#/Vol] 157 10*3/uL 146 - 337 K/uL [facility] RBC (Bld) [#/Vol] 4.53 10*6/uL [facility] WBC (Bld) [#/Vol] 3.42 10*3/uL Low 3.73 - 10. 10 K/uL [facility] Hematocrit (Bld) [Volume fraction] 39.4 % Low 39.6-48.8 [facility] Comment on above: Performed By: #### C A, CHM7, HFP, IPB, MGO #### [facility] (DEFAULT) [address] [address] Hemoglobin (Bld) [Mass/Vol] 12.7 g/dL Low 13.4-16.8 [facility] Comment on above: Performed By: #### C A, CHM7, HFP, IPB, MGO #### [facility] (DEFAULT) [address] [address] MCV (RBC) [Entitic vol] 87.0 fL Normal 79.0-94.5 [facility] Comment on above: Performed By: #### Chinedu Feliz, CHM7, HFP, IPB, MGO #### [facility] (DEFAULT) [address] [place] [address] 15287 Mean Cell Hgb 28.0 pg Normal 26.1-33.3 [facility] Comment on above: Performed By: #### Chinedu Feliz, CHM7, HFP, IPB, MGO #### [facility] (DEFAULT) [address] [place] [address]31 Mean Cell Hgb Conc 32.2 g/dL Normal 31.9-36.5 [facility] Comment on above: Performed By: #### Chinedu Feliz, CHM7, HFP, IPB, MGO #### [facility] (DEFAULT) [address] [place] [address] Platelet mean volume (Bld) [Entitic vol] 10.2 fL Normal 8.7-12.3 [facility] Comment on above: Performed By: #### Chinedu Feliz, CHM7, HFP, IPB, MGO #### [facility] (DEFAULT) [address] [place] [address]87 Platelets (Bld) [#/Vol] 157 10*3/uL Normal 146-337 [facility] Comment on above: Performed By: #### Chinedu Feliz, CHM7, HFP, IPB, MGO #### [facility] (DEFAULT) [address] [place] [address] 03532 RBC (Bld) [#/Vol] 4.53 10*6/uL Normal 4.38-5.83 [facility] Comment on above: Performed By: #### Chinedu Feliz, CHM7, HFP, IPB, MGO #### [facility] (DEFAULT) [address] [place] [address] 14024 RBC Distribution 14.0 % Normal 10.9-14.3 [facility] Comment on above: Performed By: #### C A, CHM7, HFP, IPB, MGO #### [facility] (DEFAULT) [address] [place] [address] WBC (Bld) [#/Vol] 3.42 10*3/uL Low 3.73-10.10 [facility] Comment on above: Performed By: #### C A, CHM7, HFP, IPB, MGO #### [facility] (DEFAULT) [address] [place] [address] CHEM 7 (LYTES,BUN,CREA,GLUC) on 01-21-2024 Anion gap [Moles/Vol] 12 mmol/L 7 - 17 mmol/L [facility] Chloride [Moles/Vol] 107 mmol/L 98 - 10 8 mmol/L [facility] CO2 [Moles/Vol] 26 mmol/L 21 - 31 mmol/L [facility] Creatinine [Mass/Vol] 1.11 mg/dL 0.70 - 1.30 mg/dL [facility] eGFR, CKD-EPI, Male 80 - PINF [facility] Comment on above: Reported eGFR is bas ed on the CKD-EPI 2020 equation using creatinine, age, and sex. Glucose [Mass/Vol] 93 mg/dL 70 - 99 mg/dL [facility] Osmolality Calc [Osmolality] 295 [facility] Potassium [Moles/Vol] 3.9 mmol/L 3.5 - 5.0 mmol/L [facility] Sodium [Moles/Vol] 141 mmol/L 135 - 145 mmol/L [facility] Urea nitrogen [Mass/Vol] 15 mg/dL 7 - 25 mg/dL [facility] Urea nitrogen/Creatinine [Mass ratio] 14 mg/mg [facility] Anion gap [Moles/Vol] 12 mmol/L Normal 7-17 [facility] Comment on above: Performed By: #### C HM7, HFP, MGO #### [facility] (DEFAULT) [address] [place] [address] Chloride [Moles/Vol] 107 mmol/L Normal 98-108 [facility] Comment on above: Performed By: #### C TAVO MEDLEY, MGO #### [facility] (DEFAULT) [address] [place] [address] CO2 [Moles/Vol] 26 mmol/L Normal 21-31 [facility] Comment on above: Performed By: #### TAVO GONG, MGO #### [facility] (DEFAULT) [address] [place] [address] Creatinine [Mass/Vol] 1.11 mg/dL Normal 0.70-1.30 [facility] Comment on above: Performed By: #### TAVO GONG, MGO #### [facility] (DEFAULT) [address] [place] [address]160 GFR/1.73 sq M.predicted among non-blacks MDRD (S/P/Bld) [Vol rate/Area] 80 mL/min/{1.73_m2} Normal >=60 [facility] Comment on above: Result Comment: Repo rted eGFR is based on the CKD-EPI 2020 equation using creatinine, age, and sex. Performed By: #### C TAVO MEDLEY, MGO #### [facility] (DEFAULT) [address] [place] [address]29 Glucose [Mass/Vol] 93 mg/dL Normal 70-99 [facility] Comment on above: Performed By: #### TAVO GONG, MGO #### [facility] (DEFAULT) [address] [place] [address] Osmolality [Osmolality] 295 mosm/kg Normal 278-305 [facility] Comment on above: Performed By: #### TAVO GONG, MGO #### [facility] (DEFAULT) [address] [place] [address] 25532 Potassium [Moles/Vol] 3.9 mmol/L Normal 3.5-5.0 [facility] Comment on above: Performed By: #### C HM7, HFP, MGO #### [facility] (DEFAULT) [address] [place] [address] 17936 Sodium [Moles/Vol] 141 mmol/L Normal 135-145 [facility] Comment on above: Performed By: #### C HM7, HFP, MGO #### [facility] (DEFAULT) [address] [place] [address]53 Urea nitrogen [Mass/Vol] 15 mg/dL Normal 7-25 [facility] Comment on above: Performed By: #### C HM7, HFP, MGO #### [facility] (DEFAULT) [address] [place] [address]22 Urea nitrogen/Creatinine [Mass ratio] 14 mg/mg Normal [facility] Comment on above: Performed By: #### C HM7, HFP, MGO #### [facility] (DEFAULT) [address] [place] [address] Cardiac catheterization stud yOrdered By: Kelvin Donohue on 01-21-2024 Body surface area Derived from formula 2.08 m2 [facility] Work Phone: [facility] Work Phone: Cardiac catheterization stud yon [...] with fistula occlusion Kelvin Donohue MD, MPH Weave Room Supervisor of Internal Medicine. Section of Advanced Heart Failure and Transplantation Division of Cardiovascular Diseases [facility] [email or web address] INVASIVE CARDIOVASCULAR PROC EDUREon 01-21-2024 INVASIVE CARDIOVASCULAR [...] with fistula occlusion Kelvin Donohue MD, MPH Weave Room Supervisor of Internal Medicine. Section of Advanced Heart Failure and Transplantation Division of Cardiovascular Diseases [facility] [email or web address] Table formatting from the original result was not included. Images from the original result were not included. George Styles Invasive Cardiology Cath Procedure Ordering Physician: KELVIN PACHECO Order #: [id number] Study Date: 01/20/2024 Patient Information Name MRN Description George Styles [id number] 53 y.o. male Location Name Address [facility] [address] [facility] [address] Physicians Panel Physicians Referring Physician Case Authorizing Physician LU Costello (Primary) Zuly Bruno, C[place] Kelvin Pacheco MD, LU Procedures RIGHT HEART [...] with fistula occlusion Kelvin Donohue MD, MPH Weave Room Supervisor of Internal Medicine. Section of Advanced Heart Failure and Transplantation Division of Cardiovascular Diseases [facility] [email or web address] Medical History Diagnosis Date Comment Source Acute renal failure CAD (coronary artery disease) Cirrhosis Dialysis patient T, Th, Sa- Started 06/01/2018 End stage renal disease 06/01/2018 Essential hypertension, benign Hepatic encephalopathy History of blood transfusion Liver cirrhosis Procedure The risks and alternatives of the procedure and sedation were explained. Informed consent was obtained. The patient was brought to the drop crew laborer and placed on the table. The planned puncture sites were prepped and draped in the usual sterile fashion. Fluoro Dose Fluoro Dose: 0.2 Gy-cm^2 Complications Complications documented before study signed (01/21/2024 4:05 PM) No complications were associated with this study. Documented by LU Costello - 01/20/2024 11:09 AM Cardiac Geophysics Professor Attending Physician Statement and Signature I have [...] Blood O (more content not included)... Normal [facility] MAGNESIUMon 01-21-2024 Interpretation and review of laboratory results Abnormal [facility] Magnesium [Mass/Vol] 1.5 mg/dL Low 1.6 - 2 .6 mg/dL [facility] Magnesium [Mass/Vol] 1.5 mg/dL Low 1.6-2.6 [facility] Comment on above: Performed By: #### C HM7, [facility], MGO #### [facility] (DEFAULT) [address] [place] [address] No Panel Informationon 01-21 [facility] TACROLIMUS LEVEL, TROUGH (RI E DRUG LEVEL)on 01-21-2024 Interpretation and review of laboratory results Normal [facility] Tacrolimus (Bld) [Mass/Vol] 7.2 ng/mL Bone Marrow Transplant: 4.0-12.0, Therapeutic: 5.0-15.0 [facility] Method performed is a chemiluminescent microparticle immunoasssay on the [employer] Cpa i2000. The range is based on experience at [facility] and users should be aware that target concentrations vary widely depending on concomitant therapy, time post-transplant, and desired degree of immunosuppression. [facility] Tacrolimus, Trough 7.2 ng/mL Normal Bone Susana ow Transplant: 4.0-12.0, Therapeutic: 5.0-15.0 [facility] Comment on above: Order Comment: Pleas e draw at specified interval PRIOR to dose. Do not hold dose to wait for level. Specimens batched twice per day, (M-F) and once per day weekendsMethod performed is a chemiluminescent microparticle immunoasssay on the [employer] Cpa i2000.The range is based on experience at [facility] and users should be aware that target concentrations vary widely depending on concomitant therapy, time post-transplant, and desired degree of immunosuppression. Performed By: #### C A, CHM7, HFP, IPB, MGO #### [facility] (DEFAULT) [address] [place] [address] CBC,PLATELETSon 01-20-2024 Erythrocyte distribution width (RBC) [Ratio] 13.8 % 10.9 - 14.3 % [facility] Hematocrit (Bld) [Volume fraction] 38.9 % Low 39.6 - 48.8 % [facility] Hemoglobin (Bld) [Mass/Vol] 12.5 g/dL Low 13.4 - 16.8 g/dL [facility] Interpretation and review of laboratory results Abnormal [facility] MCH (RBC) [Entitic mass] 28.0 pg 26.1 - 33.3 pg [facility] MCHC (RBC) [Mass/Vol] 32.1 g/dL 31.9 - 36.5 g/dL [facility] MCV (RBC) [Entitic vol] 87.2 fL 79.0 - 94.5 fL [facility] Platelet mean volume (Bld) [Entitic vol] 10.2 fL 8.7 - 12.3 fL [facility] Platelets (Bld) [#/Vol] 166 10*3/uL 146 - 337 K/uL [facility] RBC (Bld) [#/Vol] 4.46 10*6/uL [facility] WBC (Bld) [#/Vol] 3.79 10*3/uL 3.73 - 10. 10 K/uL [facility] Hematocrit (Bld) [Volume fraction] 38.9 % Low 39.6-48.8 [facility] Comment on above: Performed By: #### C A, CHM7, HFP, IPB, MGO #### [facility] (DEFAULT) [address] [place] [address] Hemoglobin (Bld) [Mass/Vol] 12.5 g/dL Low 13.4-16.8 [facility] Comment on above: Performed By: #### C A, CHM7, HFP, IPB, MGO #### [facility] (DEFAULT) [address] [place] [address] MCV (RBC) [Entitic vol] 87.2 fL Normal 79.0-94.5 [facility] Comment on above: Performed By: #### C A, CHM7, HFP, IPB, MGO #### [facility] (DEFAULT) [address] [place] [address] 52929 Mean Cell Hgb 28.0 pg Normal 26.1-33.3 [facility] Comment on above: Performed By: #### C A, CHM7, HFP, IPB, MGO #### [facility] (DEFAULT) [address] [place] [address] 29793 Mean Cell Hgb Conc 32.1 g/dL Normal 31.9-36.5 [facility] Comment on above: Performed By: #### C A, CHM7, HFP, IPB, MGO #### [facility] (DEFAULT) [address] [place] [address] 21552 Platelet mean volume (Bld) [Entitic vol] 10.2 fL Normal 8.7-12.3 [facility] Comment on above: Performed By: #### Chinedu Feliz, CHM7, HFP, IPB, MGO #### [facility] (DEFAULT) [address] [place] [address] 51299 Platelets (Bld) [#/Vol] 166 10*3/uL Normal 146-337 [facility] Comment on above: Performed By: #### Chinedu Feliz, CHM7, HFP, IPB, MGO #### [facility] (DEFAULT) [address] [place] [address] 24727 RBC (Bld) [#/Vol] 4.46 10*6/uL Normal 4.38-5.83 [facility] Comment on above: Performed By: #### Chinedu Feliz, CHM7, HFP, IPB, MGO #### [facility] (DEFAULT) [address] [place] [address] 77769 RBC Distribution 13.8 % Normal 10.9-14.3 [facility] Comment on above: Performed By: #### Chinedu Feliz, CHM7, HFP, IPB, MGO #### [facility] (DEFAULT) [address] [place] [address] 31487 WBC (Bld) [#/Vol] 3.79 10*3/uL Normal 3.73-10.10 [facility] Comment on above: Performed By: #### Chinedu Feliz, CHM7, HFP, IPB, MGO #### [facility] (DEFAULT) [address] [place] [address] 17866 CHEM 7 (LYTES,BUN,CREA,GLUC) on 01-20-2024 Anion gap [Moles/Vol] 12 mmol/L 7 - 17 mmol/L [facility] Chloride [Moles/Vol] 105 mmol/L 98 - 10 8 mmol/L [facility] CO2 [Moles/Vol] 28 mmol/L 21 - 31 mmol/L [facility] Creatinine [Mass/Vol] 1.12 mg/dL 0.70 - 1.30 mg/dL [facility] eGFR, CKD-EPI, Male 80 - PINF [facility] Comment on above: Reported eGFR is bas ed on the CKD-EPI 2020 equation using creatinine, age, and sex. Glucose [Mass/Vol] 88 mg/dL 70 - 99 mg/dL [facility] Osmolality Calc [Osmolality] 294 [facility] Potassium [Moles/Vol] 3.8 mmol/L 3.5 - 5.0 mmol/L [facility] Sodium [Moles/Vol] 141 mmol/L 135 - 145 mmol/L [facility] Urea nitrogen [Mass/Vol] 15 mg/dL 7 - 25 mg/dL [facility] Urea nitrogen/Creatinine [Mass ratio] 13 mg/mg [facility] Anion gap [Moles/Vol] 12 mmol/L Normal 7-17 [facility] Comment on above: Performed By: #### C HM7, HFP, MGO #### [facility] (DEFAULT) [address] [place] [address] Chloride [Moles/Vol] 105 mmol/L Normal 98-108 [facility] Comment on above: Performed By: #### C HM7, HFP, MGO #### [facility] (DEFAULT) [address] [place] [address] CO2 [Moles/Vol] 28 mmol/L Normal 21-31 [facility] Comment on above: Performed By: #### C HM7, HFP, MGO #### [facility] (DEFAULT) [address] [place] [address] Creatinine [Mass/Vol] 1.12 mg/dL Normal 0.70-1.30 [facility] Comment on above: Performed By: #### Chinedu HM7, HFP, MGO #### [facility] (DEFAULT) [address] [place] [address] GFR/1.73 sq M.predicted among non-blacks MDRD (S/P/Bld) [Vol rate/Area] 79 mL/min/{1.73_m2} Normal >=60 [facility] Comment on above: Result Comment: Repo rted eGFR is based on the CKD-EPI 2020 equation using creatinine, age, and sex. Performed By: #### C HM7, HFP, MGO #### [facility] (DEFAULT) [address] [place] [address] 56498 Glucose [Mass/Vol] 88 mg/dL Normal 70-99 [facility] Comment on above: Performed By: #### C HM7, HFP, MGO #### [facility] (DEFAULT) [address] [place] [address] 99807 Osmolality [Osmolality] 294 mosm/kg Normal 278-305 [facility] Comment on above: Performed By: #### C HM7, HFP, MGO #### [facility] (DEFAULT) [address] [place] [address] 20941 Potassium [Moles/Vol] 3.8 mmol/L Normal 3.5-5.0 [facility] Comment on above: Performed By: #### C HM7, HFP, MGO #### [facility] (DEFAULT) [address] [place] [address] 30787 Sodium [Moles/Vol] 141 mmol/L Normal 135-145 [facility] Comment on above: Performed By: #### C HM7, HFP, MGO #### [facility] (DEFAULT) [address] [place] [address] 63049 Urea nitrogen [Mass/Vol] 15 mg/dL Normal 7-25 [facility] Comment on above: Performed By: #### C HM7, HFP, MGO #### [facility] (DEFAULT) [address] [place] [address] 30365 Urea nitrogen/Creatinine [Mass ratio] 13 mg/mg Normal [facility] Comment on above: Performed By: #### C HM7, HFP, MGO #### [facility] (DEFAULT) [address] [place] [address] Cardiac catheterization stud yon 01-20-2024 [facility] Radiology Study observation (narrative) [facility] Radiology Study observation (narrative) [facility] EBV BY PCR, QUANTITATIVE,BLO ODOrdered By: Charlotte Jensen on 01-20-2024 EBV DNA ESTELITA+probe (Unsp spec) [#/Vol] NINF [facility] Interpretation and review of laboratory results Normal [facility] This test was performed using a real time PCR assay. The dynamic range for this assay is 1000-5,000,000 IU/mL. A result <1000 IU/mL does not rule out the presence of EBV DNA in quantities below the sensitivity of this assay. This test was developed and its performance characteristics determined by [facility]. It has not been cleared or approved by the FDA. The laboratory is regulated under CLIA as qualified to perform high-complexity testing. This test is used for clinical purposes. It should not be regarded as investigational or for research. [facility] HEPATIC FUNCTION PANELon Albumin [Mass/Vol] 3.7 g/dL 3.5 - 5.0 g/dL [facility] ALP [Catalytic activity/Vol] 73 U/L 32 - 126 U/L [facility] ALT [Catalytic activity/Vol] 12 U/L 10 - 52 U/L [facility] AST [Catalytic activity/Vol] 19 U/L 10 - 39 U/L [facility] Bilirubin [Mass/Vol] 2.1 mg/dL High NINF - 1.5 mg/dL [facility] Bilirubin.direct [Mass/Vol] 0.5 mg/dL High NINF - 0.3 mg/dL [facility] Interpretation and review of laboratory results Abnormal [facility] Protein [Mass/Vol] 6.1 g/dL Low 6.4 - 8.3 g/dL [facility] Albumin [Mass/Vol] 3.7 g/dL Normal 3.5-5.0 [facility] Comment on above: Performed By: #### C HM7, HFP, MGO #### [facility] (DEFAULT) [address] [place] [address] 35943 ALP [Catalytic activity/Vol] 73 U/L Normal 32-126 [facility] Comment on above: Performed By: #### C HM7, HFP, MGO #### [facility] (DEFAULT) [address] [place] [address] 07669 ALT [Catalytic activity/Vol] 12 U/L Normal 10-52 [facility] Comment on above: Performed By: #### C HM7, HFP, MGO #### [facility] (DEFAULT) [address] [place] [address] 47884 AST [Catalytic activity/Vol] 19 U/L Normal 10-39 [facility] Comment on above: Performed By: #### Chinedu HM7, HFP, MGO #### [facility] (DEFAULT) [address] [place] [address] 01235 Bilirubin [Mass/Vol] 2.1 mg/dL High <1.5 [facility] Comment on above: Performed By: #### C HM7, HFP, MGO #### [facility] (DEFAULT) [address] [place] [address] 53179 Bilirubin.indirect [Mass/Vol] 0.5 mg/dL High <0.3 [facility] Comment on above: Performed By: #### Chinedu HM7, HFP, MGO #### [facility] (DEFAULT) [address] [place] [address] 81727 Protein [Mass/Vol] 6.1 g/dL Low 6.4-8.3 [facility] Comment on above: Performed By: #### C HM7, HFP, MGO #### [facility] (DEFAULT) [address] [place] [address] 49762 ITRACONAZOLE LEVELon 024 Hydroxyitraconazole 7.6 mcg/mL Normal [facility] Comment on above: Order Comment: [...] Food and Drug Administration. Test Performed by: [facility] [place] [address] [employer]: Rosendo Bose M.D. Ph.D.; CLIA# [id number] Performed By: #### C Tray, CHM7, HFP, IPB, MGO #### [facility] (DEFAULT) [address] [place] [address] Itraconazole 6.0 mcg/mL Normal [facility] Comment on above: Order Comment: Pleas e draw level at specified interval PRIOR to dose. Result Comment: REFERENCE VALUE >0.5 (localized infection), >1.0 (systemic infection) Performed By: #### C A, CHM7, HFP, IPB, MGO #### [facility] (DEFAULT) [address] [place] [address] MAGNESIUMon 01-20-2024 Interpretation and review of laboratory results Normal [facility] Magnesium [Mass/Vol] 1.6 mg/dL 1.6 - 2 .6 mg/dL [facility] Magnesium [Mass/Vol] 1.6 mg/dL Normal 1.6-2.6 [facility] Comment on above: Performed By: #### C HM7, HFP, MGO #### [facility] (DEFAULT) [address] [place] [address] 63724 No Panel Informationon 01-20 [facility] POCT CO-OXIMETRYon Hemoglobin (Bld) [Mass/Vol] 12.8 g/dL Low 13.4 - 16.8 g/dL [facility] Interpretation and review of laboratory results Abnormal [facility] Oxyhemoglobin 69 % Low 94 - 98 % [facility] Ordering physician notified. Test performed at address of the patient encounter. [facility] Hemoglobin (Bld) [Mass/Vol] 13.3 g/dL Low 13.4 - 16.8 g/dL [facility] Interpretation and review of laboratory results Abnormal [facility] Oxyhemoglobin 69 % Low 94 - 98 % [facility] Ordering physician notified. Test performed at address of the patient encounter. [facility] PT,INR,PTTon 01-20-2024 aPTT Coag (PPP) [Time] 30.6 s [facility] INR Coag (Bld) [Relative time] 1.2 {INR} High 0.9 - 1.1 [facility] Interpretation and review of laboratory results Abnormal [facility] PT Coag (PPP) [Time] 15.5 s High [facility] aPTT Coag (Bld) [Time] 30.6 s Normal 24.0-34.3 [facility] Comment on above: Performed By: #### C A, CHM7, HFP, IPB, MGO #### [facility] (DEFAULT) [address] [place] [address] 11365 INR Coag (PPP) [Relative time] 1.2 {INR} High 0.9-1.1 [facility] Comment on above: Performed By: #### C A, CHM7, HFP, IPB, MGO #### [facility] (DEFAULT) [address] [place] [address] 42928 PT Coag (PPP) [Time] 15.5 s High 11.9-14.2 [facility] Comment on above: Performed By: #### C NATHANIEL Feliz, TAVO, IPB, MGO #### [facility] (DEFAULT) [address] [place] [address] 51388 TACROLIMUS LEVEL, TROUGH (RI E DRUG LEVEL)Ordered By: Yanira Marcum on 01-20-2024 Interpretation and review of laboratory results Normal [facility] Tacrolimus (Bld) [Mass/Vol] 7.7 ng/mL Bone Marrow Transplant: 4.0-12.0, Therapeutic: 5.0-15.0 [facility] Method performed is a chemiluminescent microparticle immunoasssay on the [employer] Senior [employer]ant Cpa i2000. The range is based on experience at [facility] and users should be aware that target concentrations vary widely depending on concomitant therapy, time post-transplant, and desired degree of immunosuppression. [facility] TACROLIMUS LEVEL, TROUGH (RI E DRUG LEVEL)on 01-20-2024 Tacrolimus, Trough 7.7 ng/mL Normal Bone Susana ow Transplant: 4.0-12.0, Therapeutic: 5.0-15.0 [facility] Comment on above: Order Comment: Pleas e draw at specified interval PRIOR to dose. Do not hold dose to wait for level. Specimens batched twice per day, (M-F) and once per day weekendsMethod performed is a chemiluminescent microparticle immunoasssay on the [employer] Senior Accountant Cpa i2000.The range is based on experience at [facility] and users should be aware that target concentrations vary widely depending on concomitant therapy, time post-transplant, and desired degree of immunosuppression. Performed By: #### C NATHANIEL Feliz, TAVO, IPB, MGO #### [facility] (DEFAULT) [address] [place] [address] 46345 CBC,PLATELETSon 01-19-2024 Erythrocyte distribution width (RBC) [Ratio] 13.9 % 10.9 - 14.3 % [facility] Hematocrit (Bld) [Volume fraction] 37.5 % Low 39.6 - 48.8 % [facility] Hemoglobin (Bld) [Mass/Vol] 12.1 g/dL Low 13.4 - 16.8 g/dL [facility] Interpretation and review of laboratory results Abnormal [facility] MCH (RBC) [Entitic mass] 28.3 pg 26.1 - 33.3 pg [facility] MCHC (RBC) [Mass/Vol] 32.3 g/dL 31.9 - 36.5 g/dL [facility] MCV (RBC) [Entitic vol] 87.8 fL 79.0 - 94.5 fL [facility] Platelet mean volume (Bld) [Entitic vol] 10.4 fL 8.7 - 12.3 fL [facility] Platelets (Bld) [#/Vol] 163 10*3/uL 146 - 337 K/uL [facility] RBC (Bld) [#/Vol] 4.27 10*6/uL Low [facility] WBC (Bld) [#/Vol] 3.69 10*3/uL Low 3.73 - 10. 10 K/uL [facility] Hematocrit (Bld) [Volume fraction] 37.5 % Low 39.6-48.8 [facility] Comment on above: Performed By: #### C A, CHM7, HFP, IPB, MGO #### [facility] (DEFAULT) [address] [place] [address] 87497 Hemoglobin (Bld) [Mass/Vol] 12.1 g/dL Low 13.4-16.8 [facility] Comment on above: Performed By: #### C A, CHM7, HFP, IPB, MGO #### [facility] (DEFAULT) [address] [place] [address] 98992 MCV (RBC) [Entitic vol] 87.8 fL Normal 79.0-94.5 [facility] Comment on above: Performed By: #### C A, CHM7, HFP, IPB, MGO #### [facility] (DEFAULT) [address] [place] [address] 51026 Mean Cell Hgb 28.3 pg Normal 26.1-33.3 [facility] Comment on above: Performed By: #### C Tray, CHM7, HFP, IPB, MGO #### [facility] (DEFAULT) [address] [place] [address] 19642 Mean Cell Hgb Conc 32.3 g/dL Normal 31.9-36.5 [facility] Comment on above: Performed By: #### C Tray, CHM7, HFP, IPB, MGO #### [facility] (DEFAULT) [address] [place] [address] 01992 Platelet mean volume (Bld) [Entitic vol] 10.4 fL Normal 8.7-12.3 [facility] Comment on above: Performed By: #### Chinedu Feliz, CHM7, HFP, IPB, MGO #### [facility] (DEFAULT) [address] [place] [address] 34159 Platelets (Bld) [#/Vol] 163 10*3/uL Normal 146-337 [facility] Comment on above: Performed By: #### Chinedu Feliz, CHM7, HFP, IPB, MGO #### [facility] (DEFAULT) [address] [place] [address] 64649 RBC (Bld) [#/Vol] 4.27 10*6/uL Low 4.38-5.83 [facility] Comment on above: Performed By: #### C Tray, CHM7, HFP, IPB, MGO #### [facility] (DEFAULT) [address] [place] [address] 19919 RBC Distribution 13.9 % Normal 10.9-14.3 [facility] Comment on above: Performed By: #### C A, CHM7, HFP, IPB, MGO #### [facility] (DEFAULT) [address] [place] [address] 05061 WBC (Bld) [#/Vol] 3.69 10*3/uL Low 3.73-10.10 [facility] Comment on above: Performed By: #### C A, CHM7, HFP, IPB, MGO #### [facility] (DEFAULT) [address] [place] [address] 70482 CHEM 7 (LYTES,BUN,CREA,GLUC) on 01-19-2024 Anion gap [Moles/Vol] 14 mmol/L 7 - 17 mmol/L [facility] Chloride [Moles/Vol] 106 mmol/L 98 - 10 8 mmol/L [facility] CO2 [Moles/Vol] 24 mmol/L 21 - 31 mmol/L [facility] Creatinine [Mass/Vol] 1.13 mg/dL 0.70 - 1.30 mg/dL [facility] eGFR, CKD-EPI, Male 78 - PINF [facility] Comment on above: Reported eGFR is bas ed on the CKD-EPI 2020 equation using creatinine, age, and sex. Glucose [Mass/Vol] 86 mg/dL 70 - 99 mg/dL [facility] Osmolality Calc [Osmolality] 293 [facility] Potassium [Moles/Vol] 3.8 mmol/L 3.5 - 5.0 mmol/L [facility] Sodium [Moles/Vol] 140 mmol/L 135 - 145 mmol/L [facility] Urea nitrogen [Mass/Vol] 16 mg/dL 7 - 25 mg/dL [facility] Urea nitrogen/Creatinine [Mass ratio] 14 mg/mg [facility] Anion gap [Moles/Vol] 14 mmol/L Normal 7-17 [facility] Comment on above: Performed By: #### C A, CHM7, HFP, IPB, MGO #### [facility] (DEFAULT) [address] [place] [address] 27724 Chloride [Moles/Vol] 106 mmol/L Normal 98-108 [facility] Comment on above: Performed By: #### C A, CHM7, HFP, IPB, MGO #### [facility] (DEFAULT) [address] [place] [address] 48208 CO2 [Moles/Vol] 24 mmol/L Normal 21-31 [facility] Comment on above: Performed By: #### C A, CHM7, HFP, IPB, MGO #### [facility] (DEFAULT) [address] [place] [address] 11745 Creatinine [Mass/Vol] 1.13 mg/dL Normal 0.70-1.30 [facility] Comment on above: Performed By: #### C A, CHM7, HFP, IPB, MGO #### [facility] (DEFAULT) [address] [place] [address] 39614 GFR/1.73 sq M.predicted among non-blacks MDRD (S/P/Bld) [Vol rate/Area] 78 mL/min/{1.73_m2} Normal >=60 [facility] Comment on above: Result Comment: Repo rted eGFR is based on the CKD-EPI 2020 equation using creatinine, age, and sex. Performed By: #### C A, CHM7, HFP, IPB, MGO #### [facility] (DEFAULT) [address] [place] [address] 92074 Glucose [Mass/Vol] 86 mg/dL Normal 70-99 [facility] Comment on above: Performed By: #### C A, CHM7, HFP, IPB, MGO #### [facility] (DEFAULT) [address] [place] [address] 19072 Osmolality [Osmolality] 293 mosm/kg Normal 278-305 [facility] Comment on above: Performed By: #### C A, CHM7, HFP, IPB, MGO #### [facility] (DEFAULT) [address] [place] [address] 48770 Potassium [Moles/Vol] 3.8 mmol/L Normal 3.5-5.0 [facility] Comment on above: Performed By: #### C A, CHM7, HFP, IPB, MGO #### [facility] (DEFAULT) [address] [place] [address] 30021 Sodium [Moles/Vol] 140 mmol/L Normal 135-145 [facility] Comment on above: Performed By: #### C A, CHM7, HFP, IPB, MGO #### [facility] (DEFAULT) [address] [place] [address] 56079 Urea nitrogen [Mass/Vol] 16 mg/dL Normal 7-25 [facility] Comment on above: Performed By: #### C A, CHM7, HFP, IPB, MGO #### [facility] (DEFAULT) [address] [place] [address] 53202 Urea nitrogen/Creatinine [Mass ratio] 14 mg/mg Normal [facility] Comment on above: Performed By: #### C A, CHM7, HFP, IPB, MGO #### [facility] (DEFAULT) [address] [place] [address] 86161 EBV BY PCR, QUANTITATIVE,BLO ODon 01-19-2024 Ebv By Pcr, Quant, Blood <1000 Normal <1000 [facility] Comment on above: Order Comment: This test was performed using a real time PCR assay. The dynamic range for this assay is 1000-5,000,000 IU/mL. A result <1000 IU/mL does not rule out the presence of EBV DNA in quantities below the sensitivity of this assay. This test was developed and its performance characteristics determined by [facility]. It has not been cleared or approved by the FDA. The laboratory is regulated under CLIA as qualified to perform high-complexity testing. This test is used for clinical purposes. It should not be regarded as investigational or for research. Performed By: #### C A, CHM7, HFP, IPB, MGO #### [facility] (DEFAULT) [address] [place] [address] 91199 HISTOPLASMA AND BLASTOMYCES ANTIGEN, ENZYME IMMUNOASSAY, SERMon 01-19-2024 Histoplasma/Blastomyce s Ag Result Not detected Not Detected [facility] Comment on above: No antigen from Hist oplasma or Blastomyces detected. False negative results may occur depending on extent of disease, and/or site of infection. Repeat testing on a new specimen if clinically indicated. Histoplasma/Blastomyce s Ag Value Not detected ng/mL [facility] Comment on above: ADDITIONAL INFORMATION This test was developed and its performance characteristics determined by [facility] in a manner consistent with CLIA requirements. This test has not been cleared or approved by the [place]. Food and Drug Administration. Test Performed by: [facility] [address] [place] [address] [employer]: Rosendo Bose M.D. Ph.D.; CLIA# [id number] [facility] MAGNESIUMon 01-19-2024 Interpretation and review of laboratory results Normal [facility] Magnesium [Mass/Vol] 1.8 mg/dL 1.6 - 2 .6 mg/dL [facility] Magnesium [Mass/Vol] 1.8 mg/dL Normal 1.6-2.6 [facility] Comment on above: Performed By: #### C A, CHM7, HFP, IPB, MGO #### [facility] (DEFAULT) [address] [place] [address] No Panel Informationon 01-19 [facility] TACROLIMUS LEVEL, TROUGH (RI E DRUG LEVEL)Ordered By: Raymundo Mehta on 01-19-2024 Interpretation and review of laboratory results Normal [facility] Tacrolimus (Bld) [Mass/Vol] 6.8 ng/mL Bone Marrow Transplant: 4.0-12.0, Therapeutic: 5.0-15.0 [facility] Method performed is a chemiluminescent microparticle immunoasssay on the [employer] Senior Accountant Cpa i2000. The range is based on experience at [facility] and users should be aware that target concentrations vary widely depending on concomitant therapy, time post-transplant, and desired degree of immunosuppression. [facility] TACROLIMUS LEVEL, TROUGH (RI E DRUG LEVEL)on 01-19-2024 Tacrolimus, Trough 6.8 ng/mL Normal Bone Susana ow Transplant: 4.0-12.0, Therapeutic: 5.0-15.0 [facility] Comment on above: Order Comment: Dilan gregory draw at specified interval PRIOR to dose. Do not hold dose to wait for level. Specimens batched twice per day, (M-F) and once per day weekendsMethod performed is a chemiluminescent microparticle immunoasssay on the [employer]ant Cpa i2000.The range is based on experience at [facility] and users should be aware that target concentrations vary widely depending on concomitant therapy, time post-transplant, and desired degree of immunosuppression. Performed By: #### C HM7, HFP, MGO #### [facility] (DEFAULT) [address] [place] [address] US AV fistulaOrdered By: Diana Reyes on 01-19-2024 [facility] Work Phone: US AV fistulaon 01-19-2024 Radiology Study observation (narrative) [facility] AFP TUMOR MARKEROrdered By: Francisca Alaniz on 01-18-2024 AFP.tumor marker [Mass/Vol] ng/mL NINF - 8.1 ng/mL [facility] Comment on above: This test was perfor med on the [employer]Alert Immunoassay platform by [employer] which is a two-site sandwich chemiluminescent immunoassay. It is important to note that assays using different manufacturers and/or methods may not be comparable. Interpretation and review of laboratory results Normal [facility] CBC,PLATELETSon 01-18-2024 Erythrocyte distribution width (RBC) [Ratio] 13.9 % 10.9 - 14.3 % [facility] Hematocrit (Bld) [Volume fraction] 38.4 % Low 39.6 - 48.8 % [facility] Hemoglobin (Bld) [Mass/Vol] 12.1 g/dL Low 13.4 - 16.8 g/dL [facility] Interpretation and review of laboratory results Abnormal [facility] MCH (RBC) [Entitic mass] 27.8 pg 26.1 - 33.3 pg [facility] MCHC (RBC) [Mass/Vol] 31.5 g/dL Low 31.9 - 36.5 g/dL [facility] MCV (RBC) [Entitic vol] 88.3 fL 79.0 - 94.5 fL [facility] Platelet mean volume (Bld) [Entitic vol] 10.4 fL 8.7 - 12.3 fL [facility] Platelets (Bld) [#/Vol] 183 10*3/uL 146 - 337 K/uL [facility] RBC (Bld) [#/Vol] 4.35 10*6/uL Low [facility] WBC (Bld) [#/Vol] 3.66 10*3/uL Low 3.73 - 10. 10 K/uL [facility] [facility] Hematocrit (Bld) [Volume fraction] 38.4 % Low 39.6-48.8 [facility] Comment on above: Performed By: #### C Tray, CHM7, HFP, IPB, MGO #### [facility] (DEFAULT) [address] [place] [address] 65322 Hemoglobin (Bld) [Mass/Vol] 12.1 g/dL Low 13.4-16.8 [facility] Comment on above: Performed By: #### C Tray, CHM7, HFP, IPB, MGO #### [facility] (DEFAULT) [address] [place] [address] 70441 MCV (RBC) [Entitic vol] 88.3 fL Normal 79.0-94.5 [facility] Comment on above: Performed By: #### C A, CHM7, HFP, IPB, MGO #### [facility] (DEFAULT) [address] [place] [address] 44775 Mean Cell Hgb 27.8 pg Normal 26.1-33.3 [facility] Comment on above: Performed By: #### C A, CHM7, HFP, IPB, MGO #### [facility] (DEFAULT) [address] [place] [address] 94946 Mean Cell Hgb Conc 31.5 g/dL Low 31.9-36.5 [facility] Comment on above: Performed By: #### C Tray, CHM7, HFP, IPB, MGO #### [facility] (DEFAULT) [address] [place] [address] 65899 Platelet mean volume (Bld) [Entitic vol] 10.4 fL Normal 8.7-12.3 [facility] Comment on above: Performed By: #### C A, CHM7, HFP, IPB, MGO #### [facility] (DEFAULT) [address] [place] [address] 95820 Platelets (Bld) [#/Vol] 183 10*3/uL Normal 146-337 [facility] Comment on above: Performed By: #### Chinedu Feliz, CHM7, HFP, IPB, MGO #### [facility] (DEFAULT) [address] [place] [address] 30240 RBC (Bld) [#/Vol] 4.35 10*6/uL Low 4.38-5.83 [facility] Comment on above: Performed By: #### Chinedu Feliz, CHM7, HFP, IPB, MGO #### [facility] (DEFAULT) [address] [place] [address] 12777 RBC Distribution 13.9 % Normal 10.9-14.3 [facility] Comment on above: Performed By: #### C A, CHM7, HFP, IPB, MGO #### [facility] (DEFAULT) [address] [place] [address] 10697 WBC (Bld) [#/Vol] 3.66 10*3/uL Low 3.73-10.10 [facility] Comment on above: Performed By: #### C A, CHM7, HFP, IPB, MGO #### [facility] (DEFAULT) [address] [place] [address] 11268 CHEM 7 (LYTES,BUN,CREA,GLUC) on 01-18-2024 Anion gap [Moles/Vol] 11 mmol/L 7 - 17 mmol/L [facility] Chloride [Moles/Vol] 108 mmol/L 98 - 10 8 mmol/L [facility] CO2 [Moles/Vol] 26 mmol/L 21 - 31 mmol/L [facility] Creatinine [Mass/Vol] 1.00 mg/dL 0.70 - 1.30 mg/dL [facility] eGFR, CKD-EPI, Male - PINF [facility] Comment on above: Reported eGFR is bas ed on the CKD-EPI 2020 equation using creatinine, age, and sex. Glucose [Mass/Vol] 89 mg/dL 70 - 99 mg/dL [facility] Osmolality Calc [Osmolality] 295 [facility] Potassium [Moles/Vol] 3.9 mmol/L 3.5 - 5.0 mmol/L [facility] Sodium [Moles/Vol] 141 mmol/L 135 - 145 mmol/L [facility] Urea nitrogen [Mass/Vol] 16 mg/dL 7 - 25 mg/dL [facility] Urea nitrogen/Creatinine [Mass ratio] 16 mg/mg [facility] Anion gap [Moles/Vol] 11 mmol/L Normal 7-17 [facility] Comment on above: Performed By: #### C HM7, HFP, MGO #### [facility] (DEFAULT) [address] [place] [address] Chloride [Moles/Vol] 108 mmol/L Normal 98-108 [facility] Comment on above: Performed By: #### C HM7, HFP, MGO #### [facility] (DEFAULT) [address] [place] [address] CO2 [Moles/Vol] 26 mmol/L Normal 21-31 [facility] Comment on above: Performed By: #### C HM7, HFP, MGO #### [facility] (DEFAULT) [address] [place] [address] Creatinine [Mass/Vol] 1.00 mg/dL Normal 0.70-1.30 [facility] Comment on above: Performed By: #### C HM7, HFP, MGO #### [facility] (DEFAULT) [address] [place] [address] 46031 eGFR, CKD-EPI, Male > Normal >=60 [facility] Comment on above: Result Comment: Repo rted eGFR is based on the CKD-EPI 2020 equation using creatinine, age, and sex. Performed By: #### C HM7, HFP, MGO #### [facility] (DEFAULT) [address] [place] [address] 53772 Glucose [Mass/Vol] 89 mg/dL Normal 70-99 [facility] Comment on above: Performed By: #### C HM7, HFP, MGO #### [facility] (DEFAULT) [address] [place] [address] 40419 Osmolality [Osmolality] 295 mosm/kg Normal 278-305 [facility] Comment on above: Performed By: #### C HM7, HFP, MGO #### [facility] (DEFAULT) [address] [place] [address] 98470 Potassium [Moles/Vol] 3.9 mmol/L Normal 3.5-5.0 [facility] Comment on above: Performed By: #### C HM7, HFP, MGO #### [facility] (DEFAULT) [address] [place] [address] 99576 Sodium [Moles/Vol] 141 mmol/L Normal 135-145 [facility] Comment on above: Performed By: #### C HM7, HFP, MGO #### [facility] (DEFAULT) [address] [place] [address] 97750 Urea nitrogen [Mass/Vol] 16 mg/dL Normal 7-25 [facility] Comment on above: Performed By: #### C HM7, HFP, MGO #### [facility] (DEFAULT) [address] [place] [address] 72200 Urea nitrogen/Creatinine [Mass ratio] 16 mg/mg Normal [facility] Comment on above: Performed By: #### C HM7, HFP, MGO #### [facility] (DEFAULT) [address] [place] [address] Cardiac echo study Procedure Ordered By: Gian Carlos on 01-18-2024 Ao ASC index 1.63 cm[facility]: [phone] Ao peak meliton 1.46 m/s [facility] Work Phone: [phone] Ao SOV index 1.56 cm/m2 [facility] Work Phone: [phone] Ao STJ index 1.25 cm/m2 [facility] Work Phone: [phone] Ao VTI 35.74 cm [facility] Work Phone: [phone] [facility]ending [facility] 3.39 [facility] [phone] AV LVOT peak gradient 4 mmHg [facility] Work Phone: [phone] AV mean gradient 5 [facility]: [phone] AV peak gradient 9 mmHG [facility] Work Phone: [phone] AV valve area 3.09 cm2 [facility] Work Phone: [phone] [facility] [phone] VEGA (continuity Vmax) 3.01 cm2 [facility] Work Phone: [phone] VEGA (continuity VTI) 3.09 cm2 [facility] Work Phone: [phone] VEGA index (continuity Vmax) 1.45 m/s [facility] Work Phone: [phone] VEGA index (continuity VTI) 1.49 cm2/m2 [facility] Work Phone: [phone] Avg e' pk meliton 0.07 m/s [facility] Work Phone: [phone] Avg E/e' ratio 19.45 [facility] Work Phone: [phone] Body surface area Derived from formula 2.08 m2 [facility] Work Phone: [phone] BP EF 62 % [facility] Work Phone: [phone] DI (Vmax) 0.73 [facility] Work Phone: [phone] DI (VTI) 0.74 m/2 [facility] Work Phone: [phone] E wave decelartion time 180.38 msec [facility] Work Phone: [phone] e' lateral pk meliton 0.0789 m/s [facility]: [phone] e' lateral pk meliton 0.08 m/s [facility] Phone: [phone] e' septal pk meliton 0.0653 m/s [facility] Phone: [phone] e' septal pk meliton 0.07 m/s [facility] Work Phone: [phone] E/A ratio 2.67 [facility] Work Phone: [phone] E/e' lateral ratio 17.62 [facility] Work Phone: [phone] E/e' septal ratio 21.29 [facility] Phone: [phone] EF SP 2CH 66 [facility] Work Phone: [phone] EF SP 4CH 58 [facility] Work Phone: [phone] FS 28 % 28 - 44 % [facility] Work Phone: [phone] IVC ostium 2.30 cm [facility] Work Phone: [phone] IVS 1.11 cm [facility] Work Phone: [phone] LA AREA 2CH 24.36 cm2 [facility] Work Phone: [phone] LA area 4CH 20.36 cm2 [facility] Work Phone: [phone] LA ESV BP (MOD) 64 [facility] Work Phone: [phone] LA ESV BP (MOD) index 31 mL/m2 [facility] Work Phone: [phone] LA ESV SP 2CH (MOD) 76 mL [facility] Work Phone: [phone] LA ESV SP 4CH (MOD) 53 [facility]: [phone] LV EDV BP 180 mL [facility] Work Phone: [phone] LV EDV SP 2CH 190 [facility] Work Phone: [phone] LV EDV SP 4CH 166 mL [facility] Work Phone: [phone] LV ESV BP 69 mL [facility] Work Phone: [phone] LV ESV SP 2CH 65 mL [facility] Work Phone: [phone] LV ESV SP 4CH 70 mL [facility] Work Phone: [phone] LV mass 254.73 g [facility] Work Phone: [phone] LV Mass Index 122.5 g/m2 [facility] Work Phone: [phone] LV RWT 0.42 [facility] Work Phone: [phone] LV stroke volume BP (ml) 111 mL [facility] Work Phone: [phone] LV stroke volume index BP 53.37 mL/m2 [facility] Work Phone: [phone] LVIDD 5.53 cm [facility] Work Phone: [phone] LVIDS 3.97 cm [facility] Work Phone: [phone] LVOT area 4.15 cm2 [facility] Work Phone: [phone] LVOT diameter 2.30 cm [facility] Work Phone: [phone] LVOT peak meliton 1.06 m/s [facility] Work Phone: [phone] LVOT peak VTI 26.61 cm [facility] Work Phone: [phone] LVOT stroke volume 111 cm3 [facility] Work Phone: [phone] LVOT stroke volume index 53.13 ml/m2 [facility] Work Phone: [phone] Mr max meliton 4.21 m/s [facility] Work Phone: [phone] MR VTI 134.50 cm [facility] Work Phone: [phone] MV mean gradient 3 mmHg [facility] Work Phone: [phone] MV peak gradient 11 mmHg [facility] Work Phone: [phone] MV pk A meliton 0.52 m/s [facility] Work Phone: [phone] MV pk E meliton 1.39 m/s [facility] Work Phone: [phone] MV stenosis pressure 1/2 time 58.56 ms [facility] Work Phone: [phone] MV valve area by continuity eq 2.93 cm2 [facility] Work Phone: [phone] MV valve area p 1/2 method 3.76 cm2 [facility] Work Phone: [phone] MV VTI 37.70 cm [facility] Work Phone: [phone] MVA (continuity VTI) 2.92 cm [facility] Work Phone: [facility] AV VTI RATIO PRE STRESS 0.74 [facility] Work Phone: [facility] ECHO LV BIPLANE SYSTOLIC VOLUME INDEX 33.17 mL/m2 [facility] Work Phone: [facility] ECHO LV BP DIASTOLIC VOLUME INDEX 86.54 mL/m2 [facility] Work Phone: [facility] ECHO MR PEAK GRADIENT 70.94 mmHg [facility] Work Phone: PW 1.16 cm [facility] Work Phone: RA area 4CH (MOD) 14.50 cm2 [facility] Work Phone: RA vol index 4CH (MOD) 18.27 mL/m2 [facility] Work Phone: Right atrium volume 4 chamber method of disks 38 mL [facility] Work Phone: RV Area diastolic 33.20 cm2 [facility] Work Phone: RV Area systolic 21.30 cm2 [facility] Work Phone: RV basal diam 4.52 cm [facility] Work Phone: RV Fractional area change 35.8 % [facility] Work Phone: RV long diam 8.96 cm [facility] Work Phone: RV mid diam 3.70 cm [facility] Work Phone: RV S' 22.01 cm/s [facility] Work Phone: RVOT peak gradient 4 mmHg [facility] Work Phone: RVOT peak meliton 0.96 m/s [facility] Work Phone: RVOT peak VTI 20.86 cm [facility] Work Phone: [phone] Sinus 3.24 cm [facility] Work Phone: [phone] STJ 2.61 cm [facility] Work Phone: [phone] Stroke Volume 111 cm/mL [facility] Work Phone: [phone] Stroke volume index 53 [facility] Work Phone: [phone] TAPSE 2.19 cm [facility] Work Phone: [phone] [facility] Work Phone: Cardiac echo study Procedure [...] echocardiography study was performed. Imaging system used: [employer]. Indications Indications for study: shortness of breath. [facility] Radiology Study observation (narrative) [facility] ECHOCARDIOGRAMon 02-19-2024 Echocardiography ? Left Ventricle: Chamber [...] original result were not included. Facility [facility] Patient Information Patient Name George Styles [...] Role Read Date Gian Carlos MD Echo [place] 01/18/2024 Left Heart Measurements LV - Systole [...] Height We (more content not included)... Normal [facility] HEPATIC FUNCTION PANELon Albumin [Mass/Vol] 3.5 g/dL 3.5 - 5.0 g/dL [facility] ALP [Catalytic activity/Vol] 70 U/L 32 - 126 U/L [facility] ALT [Catalytic activity/Vol] 8 U/L Low 10 - 52 U/L [facility] AST [Catalytic activity/Vol] 20 U/L 10 - 39 U/L [facility] Bilirubin [Mass/Vol] 1.7 mg/dL [facility] Bilirubin.direct [Mass/Vol] 0.4 mg/dL High [facility] mg/dL [facility] Protein [Mass/Vol] 6.0 g/dL Low 6.4 - 8.3 g/dL [facility] Albumin [Mass/Vol] 3.5 g/dL Normal 3.5-5.0 [facility] Comment on above: Performed By: #### C HM7, HFP, MGO #### [facility] (DEFAULT) [address] [place] [address] ALP [Catalytic activity/Vol] 70 U/L Normal 32-126 [facility] Comment on above: Performed By: #### C HM7, HFP, MGO #### [facility] (DEFAULT) [address] [place] [address] ALT [Catalytic activity/Vol] 8 U/L Low 10-52 [facility] Comment on above: Performed By: #### Chinedu MEDLEY, HFP, MGO #### [facility] (DEFAULT) [address] [place] [address] 31125 AST [Catalytic activity/Vol] 20 U/L Normal 10-39 [facility] Comment on above: Performed By: #### Chinedu HMJessica, HFP, MGO #### [facility] (DEFAULT) [address] [place] [address] 42981 Bilirubin [Mass/Vol] 1.7 mg/dL High <1.5 [facility] Comment on above: Performed By: #### Chinedu HMJessica, HFP, MGO #### [facility] (DEFAULT) [address] [place] [address] 92661 Bilirubin.indirect [Mass/Vol] 0.4 mg/dL High <0.3 [facility] Comment on above: Performed By: #### Chinedu MEDLEY, HFP, MGO #### [facility] (DEFAULT) [address] [place] [address] 16738 Protein [Mass/Vol] 6.0 g/dL Low 6.4-8.3 [facility] Comment on above: Performed By: #### Chinedu HMJessica, HFP, MGO #### [facility] (DEFAULT) [address] [place] [address] 77724 MAGNESIUMon 01-18-2024 Magnesium [Mass/Vol] 1.5 mg/dL Low 1.6 - 2 .6 mg/dL [facility] Magnesium [Mass/Vol] 1.5 mg/dL Low 1.6-2.6 [facility] Comment on above: Performed By: #### Chinedu HMJessica, HFP, MGO #### [facility] (DEFAULT) [address] [place] [address] 13006 No Panel Informationon 01-18 Interpretation and review of laboratory results Abnormal [facility] PT,INR,PTTon 01-18-2024 aPTT Coag (PPP) [Time] 30.0 s [facility] INR Coag (Bld) [Relative time] 1.1 {INR} 0.9 - 1.1 [facility] Interpretation and review of laboratory results Abnormal [facility] PT Coag (PPP) [Time] 14.5 s High [facility] aPTT Coag (Bld) [Time] 30.0 s Normal 24.0-34.3 [facility] Comment on above: Performed By: #### C A, CHM7, HFP, IPB, MGO #### [facility] (DEFAULT) [address] [place] [address] 13833 INR Coag (PPP) [Relative time] 1.1 {INR} Normal 0.9-1.1 [facility] Comment on above: Performed By: #### C A, CHM7, HFP, IPB, MGO #### [facility] (DEFAULT) [address] [place] [address] 30876 PT Coag (PPP) [Time] 14.5 s High 11.9-14.2 [facility] Comment on above: Performed By: #### C A, CHM7, HFP, IPB, MGO #### [facility] (DEFAULT) [address] [place] [address] 31022 TSH W/FT4 REFLEXon 4 Interpretation and review of laboratory results Normal [facility] TSH Qn 2.660 m[IU]/L [facility] TSH 2.660 uIU/mL Normal 0.550-4.780 [facility] Comment on above: Performed By: #### C HM7, HFP, MGO #### [facility] (DEFAULT) [address] [place] [address] 56504 AFP TUMOR MARKERon 4 AFP Tumor Marker <2.2 Normal <8.1 [facility] Comment on above: Result Comment: This test was performed on the [employer] IM Immunoassay platform by [employer] which is a two-site sandwich chemiluminescent immunoassay. It is important to note that assays using different manufacturers and/or methods may not be comparable. Performed By: #### C A, CHM7, HFP, IPB, MGO #### [facility] (DEFAULT) [address] [place] [address] DARYL AURIS SCREEN BY PCRO rdered By: Mynor Alejandro on 01-17-2024 Daryl auris Screen by PCR Not detected Not Detected [facility] Interpretation and review of laboratory results Normal [facility] This test was performed using a real-time PCR assay. This test was developed, and its performance characteristics determined by [facility]. It has not been cleared or approved by the FDA. The laboratory is regulated under CLIA as qualified to perform high-complexity testing. This test is used for clinical purposes. It should not be regarded as investigational or for research. [facility] CBC,PLATELETSon 01-17-2024 Erythrocyte distribution width (RBC) [Ratio] 14.0 % 10.9 - 14.3 % [facility] Hematocrit (Bld) [Volume fraction] 37.2 % Low 39.6 - 48.8 % [facility] Hemoglobin (Bld) [Mass/Vol] 12.0 g/dL Low 13.4 - 16.8 g/dL [facility] Interpretation and review of laboratory results Abnormal [facility] MCH (RBC) [Entitic mass] 27.9 pg 26.1 - 33.3 pg [facility] MCHC (RBC) [Mass/Vol] 32.3 g/dL 31.9 - 36.5 g/dL [facility] MCV (RBC) [Entitic vol] 86.5 fL 79.0 - 94.5 fL [facility] Platelet mean volume (Bld) [Entitic vol] 10.5 fL 8.7 - 12.3 fL [facility] Platelets (Bld) [#/Vol] 159 10*3/uL 146 - 337 K/uL [facility] RBC (Bld) [#/Vol] 4.30 10*6/uL Low [facility] WBC (Bld) [#/Vol] 3.69 10*3/uL Low 3.73 - 10. 10 K/uL [facility] Hematocrit (Bld) [Volume fraction] 37.2 % Low 39.6-48.8 [facility] Comment on above: Performed By: #### C HM7, HFP, MGO #### [facility] (DEFAULT) [address] [place] [address] 52360 Hemoglobin (Bld) [Mass/Vol] 12.0 g/dL Low 13.4-16.8 [facility] Comment on above: Performed By: #### C HM7, HFP, MGO #### [facility] (DEFAULT) [address] [place] [address] 80636 MCV (RBC) [Entitic vol] 86.5 fL Normal 79.0-94.5 [facility] Comment on above: Performed By: #### C HM7, HFP, MGO #### [facility] (DEFAULT) [address] [place] [address] 10022 Mean Cell Hgb 27.9 pg Normal 26.1-33.3 [facility] Comment on above: Performed By: #### C HM7, HFP, MGO #### [facility] (DEFAULT) [address] [place] [address] 38905 Mean Cell Hgb Conc 32.3 g/dL Normal 31.9-36.5 [facility] Comment on above: Performed By: #### C HM7, HFP, MGO #### [facility] (DEFAULT) [address] [place] [address] 04809 Platelet mean volume (Bld) [Entitic vol] 10.5 fL Normal 8.7-12.3 [facility] Comment on above: Performed By: #### C HM7, HFP, MGO #### [facility] (DEFAULT) [address] [place] [address] 07792 Platelets (Bld) [#/Vol] 159 10*3/uL Normal 146-337 [facility] Comment on above: Performed By: #### C HM7, HFP, MGO #### [facility] (DEFAULT) [address] [place] [address] 69888 RBC (Bld) [#/Vol] 4.30 10*6/uL Low 4.38-5.83 [facility] Comment on above: Performed By: #### C HM7, HFP, MGO #### [facility] (DEFAULT) [address] [place] [address] 09697 RBC Distribution 14.0 % Normal 10.9-14.3 [facility] Comment on above: Performed By: #### Chinedu HM7, HFP, MGO #### [facility] (DEFAULT) [address] [place] [address] 26649 WBC (Bld) [#/Vol] 3.69 10*3/uL Low 3.73-10.10 [facility] Comment on above: Performed By: #### Chinedu HM7, HFP, MGO #### [facility] (DEFAULT) [address] [place] [address] 04673 CHEM 7 (LYTES,BUN,CREA,GLUC) on 01-17-2024 Anion gap [Moles/Vol] 13 mmol/L 7 - 17 mmol/L [facility] Chloride [Moles/Vol] 109 mmol/L High 98 - 10 8 mmol/L [facility] CO2 [Moles/Vol] 21 mmol/L 21 - 31 mmol/L [facility] Creatinine [Mass/Vol] 1.04 mg/dL 0.70 - 1.30 mg/dL [facility] eGFR, CKD-EPI, Male 86 - PINF [facility] Comment on above: Reported eGFR is bas ed on the CKD-EPI 2020 equation using creatinine, age, and sex. Glucose [Mass/Vol] 82 mg/dL 70 - 99 mg/dL [facility] Osmolality Calc [Osmolality] 292 [facility] Potassium [Moles/Vol] 4.4 mmol/L 3.5 - 5.0 mmol/L [facility] Sodium [Moles/Vol] 139 mmol/L 135 - 145 mmol/L [facility] Urea nitrogen [Mass/Vol] 17 mg/dL 7 - 25 mg/dL [facility] Urea nitrogen/Creatinine [Mass ratio] 16 mg/mg [facility] Anion gap [Moles/Vol] 13 mmol/L Normal 7-17 [facility] Comment on above: Performed By: #### C HM7, HFP, MGO #### [facility] (DEFAULT) [address] [place] [address] 87434 Chloride [Moles/Vol] 109 mmol/L High 98-108 [facility] Comment on above: Performed By: #### Chinedu HM7, HFP, MGO #### [facility] (DEFAULT) [address] [place] [address] 51870 CO2 [Moles/Vol] 21 mmol/L Normal 21-31 [facility] Comment on above: Performed By: #### Chinedu HM7, HFP, MGO #### [facility] (DEFAULT) [address] [place] [address] 15615 Creatinine [Mass/Vol] 1.04 mg/dL Normal 0.70-1.30 [facility] Comment on above: Performed By: #### Chinedu HM7, HFP, MGO #### [facility] (DEFAULT) [address] [place] [address] 33791 GFR/1.73 sq M.predicted among non-blacks MDRD (S/P/Bld) [Vol rate/Area] 86 mL/min/{1.73_m2} Normal >=60 [facility] Comment on above: Result Comment: Repo rted eGFR is based on the CKD-EPI 2020 equation using creatinine, age, and sex. Performed By: #### C HM7, HFP, MGO #### [facility] (DEFAULT) [address] [place] [address] 41092 Glucose [Mass/Vol] 82 mg/dL Normal 70-99 [facility] Comment on above: Performed By: #### C HM7, HFP, MGO #### [facility] (DEFAULT) [address] [place] [address] 33756 Osmolality [Osmolality] 292 mosm/kg Normal 278-305 [facility] Comment on above: Performed By: #### C HM7, HFP, MGO #### [facility] (DEFAULT) [address] [place] [address] 83634 Potassium [Moles/Vol] 4.4 mmol/L Normal 3.5-5.0 [facility] Comment on above: Performed By: #### C HM7, HFP, MGO #### [facility] (DEFAULT) [address] [place] [address] 84203 Sodium [Moles/Vol] 139 mmol/L Normal 135-145 [facility] Comment on above: Performed By: #### C HM7, HFP, MGO #### [facility] (DEFAULT) [address] [place] [address] 70121 Urea nitrogen [Mass/Vol] 17 mg/dL Normal 7-25 [facility] Comment on above: Performed By: #### Chinedu HM7, HFP, MGO #### [facility] (DEFAULT) [address] [place] [address] 83110 Urea nitrogen/Creatinine [Mass ratio] 16 mg/mg Normal [facility] Comment on above: Performed By: #### C HM7, HFP, MGO #### [facility] (DEFAULT) [address] [place] [address] ABDOMEN/PELVIS WITHOUT CO NTRASTon 01-17-2024 CT [...] unremarkable. Kidneys: Severe atrophy of the bilateral [place] kidney is without hydronephrosis. Right lower quadrant [...] middle lobe. Trace left pleural effusion. Normal [facility] CT Abdomen and Pelvis WO geoff [...] unremarkable. Kidneys: Severe atrophy of the bilateral [place] kidney is without hydronephrosis. Right lower quadrant [...] unremarkable. Kidneys: Severe atrophy of the bilateral [place] kidney is without hydronephrosis. Right lower quadrant [...] the middle lobe. Trace left pleural effusion. [facility] Radiology Study observation (narrative) [facility] HEPATIC FUNCTION PANELon Albumin [Mass/Vol] 3.5 g/dL 3.5 - 5.0 g/dL [facility] ALP [Catalytic activity/Vol] 73 U/L 32 - 126 U/L [facility] ALT [Catalytic activity/Vol] 7 U/L Low 10 - 52 U/L [facility] AST [Catalytic activity/Vol] 25 U/L 10 - 39 U/L [facility] Bilirubin [Mass/Vol] 1.8 mg/dL High NINF - 1.5 mg/dL [facility] Bilirubin.direct [Mass/Vol] 0.3 mg/dL High NINF - 0.3 mg/dL [facility] Protein [Mass/Vol] 6.0 g/dL Low 6.4 - 8.3 g/dL [facility] Albumin [Mass/Vol] 3.5 g/dL Normal 3.5-5.0 [facility] Comment on above: Performed By: #### C HM7, HFP, MGO #### [facility] (DEFAULT) [address] [place] [address]68 ALP [Catalytic activity/Vol] 73 U/L Normal 32-126 [facility] Comment on above: Performed By: #### C HM7, HFP, MGO #### [facility] (DEFAULT) [address] [place] [address] 35750 ALT [Catalytic activity/Vol] 7 U/L Low 10-52 [facility] Comment on above: Performed By: #### C HM7, HFP, MGO #### [facility] (DEFAULT) [address] [place] [address] 22547 AST [Catalytic activity/Vol] 25 U/L Normal 10-39 [facility] Comment on above: Performed By: #### C HM7, HFP, MGO #### [facility] (DEFAULT) [address] [place] [address] 71291 Bilirubin [Mass/Vol] 1.8 mg/dL High <1.5 [facility] Comment on above: Performed By: #### Chinedu HM7, HFP, MGO #### [facility] (DEFAULT) [address] [place] [address]59 Bilirubin.indirect [Mass/Vol] 0.3 mg/dL High <0.3 [facility] Comment on above: Performed By: #### Chinedu HM7, HFP, MGO #### [facility] (DEFAULT) [address] [place] [address] 67175 Protein [Mass/Vol] 6.0 g/dL Low 6.4-8.3 [facility] Comment on above: Performed By: #### C HM7, HFP, MGO #### [facility] (DEFAULT) [address] [address] HISTOPLASMA AND BLASTOMYCES ANTIGEN, ENZYME IMMUNOASSAY, SERMon 01-17-2024 Histoplasma/Blastomyce s Ag Result Not detected Normal Not Detected [facility] Comment on above: Result Comment: No a ntigen from Histoplasma or Blastomyces detected. False negative results may occur depending on extent of disease, and/or site of infection. Repeat testing on a new specimen if clinically indicated. Performed By: #### C Tray, CHM7, HFP, IPB, MGO #### [facility] (DEFAULT) [address] [address] Histoplasma/Blastomyce s Ag Value Not detected Normal [facility] Comment on above: Result Comment: ADDITIONAL INFORMATION This test was developed and its performance characteristics determined by [facility] in a manner consistent with CLIA requirements. This test has not been cleared or approved by the U.S. Food and Drug Administration. Test Performed by: [facility] [place] [address] [employer]: Rosendo Bose M.D. Ph.D.; CLIA# [id number] Performed By: #### C Tray, CHM7, HFP, IPB, MGO #### [facility] (DEFAULT) [address] [address] MAGNESIUMon 01-17-2024 Interpretation and review of laboratory results Normal [facility] Magnesium [Mass/Vol] 1.7 mg/dL 1.6 - 2 .6 mg/dL [facility] Magnesium [Mass/Vol] 1.7 mg/dL Normal 1.6-2.6 [facility] Comment on above: Performed By: #### C HM7, HFP, MGO #### [facility] (DEFAULT) [address] [place] [address] No Panel Informationon 01-17 Interpretation and review of laboratory results Abnormal [facility] PT,INR,PTTon 01-17-2024 aPTT Coag (PPP) [Time] 29.9 s OS [facility] INR Coag (Bld) [Relative time] 1.1 {INR} 0.9 - 1.1 [facility] Interpretation and review of laboratory results Abnormal [facility] PT Coag (PPP) [Time] 14.5 s High [facility] aPTT Coag (Bld) [Time] 29.9 s Normal 24.0-34.3 [facility] Comment on above: Performed By: #### Chinedu MEDLEY, TAVO, MGO #### [facility] (DEFAULT) [address] [place] [address] INR Coag (PPP) [Relative time] 1.1 {INR} Normal 0.9-1.1 [facility] Comment on above: Performed By: #### Chinedu HMJessica, HFP, MGO #### [facility] (DEFAULT) [address] [place] [address]952 PT Coag (PPP) [Time] 14.5 s High 11.9-14.2 [facility] Comment on above: Performed By: #### Chinedu HM7, HFP, MGO #### [facility] (DEFAULT) [address] [place] [address] B-TYPE NATRIURETIC PEPTIDE ( BRAIN)on 01-16-2024 Interpretation and review of laboratory results Abnormal [facility] Natriuretic peptide B (Bld) [Mass/Vol] 212 pg/mL High 0 - 100 pg/mL [facility] Natriuretic peptide B (Bld) [Mass/Vol] 212 pg/mL High 0-100 [facility] Comment on above: Performed By: #### Chinedu HM7, HFP, MGO #### [facility] (DEFAULT) [address] [place] [address] CALCIUMon 01-16-2024 Calcium [Mass/Vol] 8.5 mg/dL Low 8.6 - 10. 5 mg/dL [facility] Calcium [Mass/Vol] 8.5 mg/dL Low 8.6-10.5 [facility] Comment on above: Performed By: #### C A, CHM7, HFP, IPB, MGO #### [facility] (DEFAULT) [address] [place] [address] DARYL AURIS SCREEN BY PCRo n 01-16-2024 Daryl auris Screen by PCR Not detected Normal Not Detected [facility] Comment on above: Order Comment: This test was performed using a real-time PCR assay. This test was developed, and its performance characteristics determined by [facility]. It has not been cleared or approved by the FDA. The laboratory is regulated under CLIA as qualified to perform high-complexity testing. This test is used for clinical purposes. It should not be regarded as investigational or for research. Performed By: #### C HM7, HFP, MGO #### [facility] (DEFAULT) [address] [address] CBC AND ELECTRONIC DIFFon Basophils (Bld) [#/Vol] K/uL 0.00 - 0.09 K/uL [facility] Basophils/100 WBC (Bld) 0.6 % [facility] Differential cell count method Nom (Bld) Electronic Differential [facility] Eosinophils (Bld) [#/Vol] 0.09 10*3/uL 0.00 - 0.48 K/uL [facility] Eosinophils/100 WBC (Bld) 2.5 % [facility] Erythrocyte distribution width (RBC) [Ratio] 14.0 % 10.9 - 14.3 % [facility] Hematocrit (Bld) [Volume fraction] 37.4 % Low 39.6 - 48.8 % [facility] Hemoglobin (Bld) [Mass/Vol] 12.1 g/dL Low 13.4 - 16.8 g/dL [facility] Immature granulocytes (Bld) [#/Vol] K/uL NINF - 0.07 K/uL [facility] Immature granulocytes/100 WBC (Bld) 0.3 % [facility] Interpretation and review of laboratory results Abnormal [facility] Lymphocytes (Bld) [#/Vol] 1.16 10*3/uL 0.83 - 3.57 K/uL [facility] Lymphocytes/100 WBC (Bld) 32.0 % [facility] MCH (RBC) [Entitic mass] 28.4 pg 26.1 - 33.3 pg [facility] MCHC (RBC) [Mass/Vol] 32.4 g/dL 31.9 - 36.5 g/dL [facility] MCV (RBC) [Entitic vol] 87.8 fL 79.0 - 94.5 fL [facility] Monocytes (Bld) [#/Vol] 0.43 10*3/uL 0.24 - 0.93 K/uL [facility] Monocytes/100 WBC (Bld) 11.9 % [facility] Neutrophils (Bld) [#/Vol] 1.91 10*3/uL 1.57 - 6.19 K/uL [facility] Nucleated RBC/100 WBC (Bld) [Ratio] 0.0 % [facility] Platelet mean volume (Bld) [Entitic vol] 10.1 fL 8.7 - 12.3 fL [facility] Platelets (Bld) [#/Vol] 155 10*3/uL 146 - 337 K/uL [facility] RBC (Bld) [#/Vol] 4.26 10*6/uL Low [facility] Segmented neutrophils/100 WBC (Bld) 52.7 % [facility] WBC (Bld) [#/Vol] 3.62 10*3/uL Low 3.73 - 10. 10 K/uL [facility] Abs Baso Auto < Normal 0.00-0.09 [facility] Comment on above: Performed By: #### C HM7, HFP, MGO #### [facility] (DEFAULT) [address] [place] [address]2847 Basophils/100 WBC (Bld) 0.6 % Normal [facility] Comment on above: Performed By: #### C HM7, HFP, MGO #### [facility] (DEFAULT) [address] [place] [address] DIFF STATUS Electronic Differential Normal [facility] Comment on above: Performed By: #### C HM7, HFP, MGO #### [facility] (DEFAULT) [address] [place] [address] Eosinophils (Bld) [#/Vol] 0.09 10*3/uL Normal 0.00-0.48 [facility] Comment on above: Performed By: #### C HM7, HFP, MGO #### [facility] (DEFAULT) [address] [place] [address] Eosinophils/100 WBC (Bld) 2.5 % Normal [facility] Comment on above: Performed By: #### C HM7, HFP, MGO #### [facility] (DEFAULT) [address] [place] [address] Hematocrit (Bld) [Volume fraction] 37.4 % Low 39.6-48.8 [facility] Comment on above: Performed By: #### C HM7, HFP, MGO #### [facility] (DEFAULT) [address] [place] [address] Hemoglobin (Bld) [Mass/Vol] 12.1 g/dL Low 13.4-16.8 [facility] Comment on above: Performed By: #### C HM7, HFP, MGO #### [facility] (DEFAULT) [address] [place] [address]266 Immature Grans % 0.3 % Normal [facility] Comment on above: Performed By: #### C HM7, HFP, MGO #### [facility] (DEFAULT) [address] [place] [address] Immature Grans Absolute < Normal <=0.07 [facility] Comment on above: Performed By: #### C HM7, HFP, MGO #### [facility] (DEFAULT) [address] [place] [address] Lymphocytes (Bld) [#/Vol] 1.16 10*3/uL Normal 0.83-3.57 [facility] Comment on above: Performed By: #### C HM7, HFP, MGO #### [facility] (DEFAULT) [address] [place] [address]39 Lymphocytes/100 WBC (Bld) 32.0 % Normal [facility] Comment on above: Performed By: #### C HM7, HFP, MGO #### [facility] (DEFAULT) [address] [place] [address] 62200 MCV (RBC) [Entitic vol] 87.8 fL Normal 79.0-94.5 [facility] Comment on above: Performed By: #### C HM7, HFP, MGO #### [facility] (DEFAULT) [address] [place] [address] 39323 Mean Cell Hgb 28.4 pg Normal 26.1-33.3 [facility] Comment on above: Performed By: #### C HM7, HFP, MGO #### [facility] (DEFAULT) [address] [place] [address] 70764 Mean Cell Hgb Conc 32.4 g/dL Normal 31.9-36.5 [facility] Comment on above: Performed By: #### C HM7, HFP, MGO #### [facility] (DEFAULT) [address] [place] [address] 49514 Monocytes (Bld) [#/Vol] 0.43 10*3/uL Normal 0.24-0.93 [facility] Comment on above: Performed By: #### C HM7, HFP, MGO #### [facility] (DEFAULT) [address] [place] [address]109 Monocytes/100 WBC (Bld) 11.9 % Normal [facility] Comment on above: Performed By: #### C HM7, HFP, MGO #### [facility] (DEFAULT) [address] [place] [address] 96116 Nucleated RBC 0.0 /100 WBC Normal <=0.2 [facility] Comment on above: Performed By: #### C HM7, HFP, MGO #### [facility] (DEFAULT) [address] [place] [address] Platelet mean volume (Bld) [Entitic vol] 10.1 fL Normal 8.7-12.3 [facility] Comment on above: Performed By: #### C HM7, HFP, MGO #### [facility] (DEFAULT) [address] [place] [address] Platelets (Bld) [#/Vol] 155 10*3/uL Normal 146-337 [facility] Comment on above: Performed By: #### C HM7, HFP, MGO #### [facility] (DEFAULT) [address] [place] [address] 72469 RBC (Bld) [#/Vol] 4.26 10*6/uL Low 4.38-5.83 [facility] Comment on above: Performed By: #### C HM7, HFP, MGO #### [facility] (DEFAULT) [address] [place] [address] 28491 RBC Distribution 14.0 % Normal 10.9-14.3 [facility] Comment on above: Performed By: #### C HM7, HFP, MGO #### [facility] (DEFAULT) [address] [place] [address] Segs + Bands Auto 52.7 % Normal [facility] Comment on above: Performed By: #### C HM7, HFP, MGO #### [facility] (DEFAULT) [address] [place] [address]937 Segs + Bands,Absolute Auto 1.91 K/uL Normal 1.57-6.19 [facility] Comment on above: Performed By: #### C HM7, HFP, MGO #### [facility] (DEFAULT) [address] [place] [address] WBC (Bld) [#/Vol] 3.62 10*3/uL Low 3.73-10.10 [facility] Comment on above: Performed By: #### C HM7, HFP, MGO #### [facility] (DEFAULT) [address] [place] [address] CHEM 7 (LYTES,BUN,CREA,GLUC) on 01-16-2024 Anion gap [Moles/Vol] 11 mmol/L 7 - 17 mmol/L [facility] Chloride [Moles/Vol] 108 mmol/L 98 - 10 8 mmol/L [facility] CO2 [Moles/Vol] 24 mmol/L 21 - 31 mmol/L [facility] Creatinine [Mass/Vol] 1.04 mg/dL 0.70 - 1.30 mg/dL [facility] eGFR, CKD-EPI, Male 86 - PINF [facility] Comment on above: Reported eGFR is bas ed on the CKD-EPI 2020 equation using creatinine, age, and sex. Glucose [Mass/Vol] 95 mg/dL 70 - 99 mg/dL [facility] Osmolality Calc [O[facility]olality] [facility] Potassium [Moles/Vol] 4.0 mmol/L 3.5 - 5.0 mmol/L [facility] Sodium [Moles/Vol] 139 mmol/L 135 - 145 mmol/L [facility] Urea nitrogen [Mass/Vol] 19 mg/dL 7 - 25 mg/dL [facility] Urea nitrogen/Creatinine [Mass ratio] 18 mg/mg [facility] Anion gap [Moles/Vol] 11 mmol/L Normal - [facility] Comment on above: Performed By: #### C A, CHM7, HFP, IPB, MGO #### [facility] (DEFAULT) [address] [place] [address]95 Chloride [Moles/Vol] 108 mmol/L Normal 98-108 [facility] Comment on above: Performed By: #### C A, CHM7, HFP, IPB, MGO #### [facility] (DEFAULT) [address] [place] [address]36 CO2 [Moles/Vol] 24 mmol/L Normal 21-31 [facility] Comment on above: Performed By: #### C A, CHM7, HFP, IPB, MGO #### [facility] (DEFAULT) [address] [place] [address]198 Creatinine [Mass/Vol] 1.04 mg/dL Normal 0.70-1.30 [facility] Comment on above: Performed By: #### C A, CHM7, HFP, IPB, MGO #### [facility] (DEFAULT) [address] [place] [address] 18566 GFR/1.73 sq M.predicted among non-blacks MDRD (S/P/Bld) [Vol rate/Area] 86 mL/min/{1.73_m2} Normal >=60 [facility] Comment on above: Result Comment: Repo rted eGFR is based on the CKD-EPI 2020 equation using creatinine, age, and sex. Performed By: #### C A, CHM7, HFP, IPB, MGO #### [facility] (DEFAULT) [address] [place] [address]17 Glucose [Mass/Vol] 95 mg/dL Normal 70-99 [facility] Comment on above: Performed By: #### C A, CHM7, HFP, IPB, MGO #### [facility] (DEFAULT) [address] [place] [address] 14062 Osmolality [Osmolality] 293 mosm/kg Normal 278-305 [facility] Comment on above: Performed By: #### C A, CHM7, HFP, IPB, MGO #### [facility] (DEFAULT) [address] [place] [address] 13548 Potassium [Moles/Vol] 4.0 mmol/L Normal 3.5-5.0 [facility] Comment on above: Performed By: #### C A, CHM7, HFP, IPB, MGO #### [facility] (DEFAULT) [address] [place] [address], [place] [address] Sodium [Moles/Vol] 139 mmol/L Normal 135-145 [facility] Comment on above: Performed By: #### C A, CHM7, HFP, IPB, MGO #### [facility] (DEFAULT) [address] [place] [address] 48996 Urea nitrogen [Mass/Vol] 19 mg/dL Normal 7-25 [facility] Comment on above: Performed By: #### C A, CHM7, HFP, IPB, MGO #### [facility] (DEFAULT) [address] [place] [address] 12500 Urea nitrogen/Creatinine [Mass ratio] 18 mg/mg Normal [facility] Comment on above: Performed By: #### C A, CHM7, HFP, IPB, MGO #### [facility] (DEFAULT) [address] [place] [address]96 D-DIMER,QUANTITATIVEOrdered By: Shaji Kelly on 01-16-2024 Fibrin D-dimer FEU (PPP) [Mass/Vol] 0.67 [facility] Comment on above: The D-Dimer assay is intended for use in conjuction with a clinical pretest probability (PTP) assessment model to exclude pulmonary embolism (PE) and as an aid in the diagnosis of Deep Vein Thrombosis (DVT) in outpatients suspected of PE or DVT. For the assay in use at [facility] ([facility]), a cutoff of <0.50 mcg/mL has a Negative Predictive Value of 99.7% for exclusion of DVT in low and moderate PTP patients. Interpretation and review of laboratory results Abnormal [facility] D-DIMER,QUANTITATIVEon 01-16 D-Dimer, High Sensitivity 0.67 mcg/mL FEU High <0.50 [facility] Comment on above: Result Comment: The D-Dimer assay is intended for use in conjuction with a clinical pretest probability (PTP) assessment model to exclude pulmonary embolism (PE) and as an aid in the diagnosis of Deep Vein Thrombosis (DVT) in outpatients suspected of PE or DVT. For the assay in use at [facility] ([facility]), a cutoff of <0.50 mcg/mL has a Negative Predictive Value of 99.7% for exclusion of DVT in low and moderate PTP patients. Performed By: #### C HM7, HFP, MGO #### [facility] (DEFAULT) [address] [place] [address] HEPATIC FUNCTION PANELon Albumin [Mass/Vol] 3.7 g/dL 3.5 - 5.0 g/dL [facility] ALP [Catalytic activity/Vol] 70 U/L 32 - 126 U/L [facility] ALT [Catalytic activity/Vol] 8 U/L Low 10 - 52 U/L [facility] AST [Catalytic activity/Vol] 21 U/L 10 - 39 U/L [facility] Bilirubin [Mass/Vol] 1.9 mg/dL High NINF - 1.5 mg/dL [facility] Bilirubin.direct [Mass/Vol] 0.4 mg/dL High NINF - 0.3 mg/dL [facility] Protein [Mass/Vol] 6.1 g/dL Low 6.4 - 8.3 g/dL [facility] Albumin [Mass/Vol] 3.7 g/dL Normal 3.5-5.0 [facility] Comment on above: Performed By: #### C A, CHM7, HFP, IPB, MGO #### [facility] (DEFAULT) [address] [address] ALP [Catalytic activity/Vol] 70 U/L Normal 32-126 [facility] Comment on above: Performed By: #### C A, CHM7, HFP, IPB, MGO #### [facility] (DEFAULT) [address] [place] [address] 44860 ALT [Catalytic activity/Vol] 8 U/L Low 10-52 [facility] Comment on above: Performed By: #### C A, CHM7, HFP, IPB, MGO #### [facility] (DEFAULT) [address] [place] [address] 03583 AST [Catalytic activity/Vol] 21 U/L Normal 10-39 [facility] Comment on above: Performed By: #### C A, CHM7, HFP, IPB, MGO #### [facility] (DEFAULT) [address] [place] [address] 41287 Bilirubin [Mass/Vol] 1.9 mg/dL High <1.5 [facility] Comment on above: Performed By: #### C A, CHM7, HFP, IPB, MGO #### [facility] (DEFAULT) [address] [place] [address] 21323 Bilirubin.indirect [Mass/Vol] 0.4 mg/dL High <0.3 [facility] Comment on above: Performed By: #### C A, CHM7, HFP, IPB, MGO #### [facility] (DEFAULT) [address] [place] [address] 26287 Protein [Mass/Vol] 6.1 g/dL Low 6.4-8.3 [facility] Comment on above: Performed By: #### C A, CHM7, HFP, IPB, MGO #### [facility] (DEFAULT) [address] [place] [address]34 MAGNESIUMon 01-16-2024 Magnesium [Mass/Vol] 1.7 mg/dL 1.6 - 2 .6 mg/dL [facility] Magnesium [Mass/Vol] 1.7 mg/dL Normal 1.6-2.6 [facility] Comment on above: Performed By: #### C A, CHM7, HFP, IPB, MGO #### [facility] (DEFAULT) [address] [place] [address] 09192 No Panel Informationon 01-16 Interpretation and review of laboratory results Abnormal [facility] Interpretation and review of laboratory results Normal [facility] PHOSPHATE, INORGANICon 01-16 Phosphate [Mass/Vol] 4.1 mg/dL 2.2 - 4 .6 mg/dL [facility] Phosphorous 4.1 mg/dL Normal 2.2-4.6 [facility] Comment on above: Performed By: #### C A, CHM7, TAVO, JO ANN MGO #### [facility] (DEFAULT) [address] [place] [address] 22027 PT,INR,PTTon 01-16-2024 aPTT Coag (PPP) [Time] 29.6 s [facility] INR Coag (Bld) [Relative time] 1.2 {INR} High 0.9 - 1.1 [facility] Interpretation and review of laboratory results Abnormal [facility] PT Coag (PPP) [Time] 14.9 s High [facility] aPTT Coag (Bld) [Time] 29.6 s Normal 24.0-34.3 [facility] Comment on above: Performed By: #### Chinedu HMJessica, TAVO, MGO #### [facility] (DEFAULT) [address] [place] [address] 13089 INR Coag (PPP) [Relative time] 1.2 {INR} High 0.9-1.1 [facility] Comment on above: Performed By: #### C HMJessica, TAVO, MGO #### [facility] (DEFAULT) [address] [place] [address] 99479 PT Coag (PPP) [Time] 14.9 s High 11.9-14.2 [facility] Comment on above: Performed By: #### C HMJessica, HFP, MGO #### [facility] (DEFAULT) [address] [address] TACROLIMUS LEVEL, TROUGH (RI E DRUG LEVEL)Ordered By: Jimy Castillo on 01-16-2024 Interpretation and review of laboratory results Normal [facility] Tacrolimus (Bld) [Mass/Vol] 5.7 ng/mL Bone Marrow Transplant: 4.0-12.0, Therapeutic: 5.0-15.0 [facility] Method performed is a chemiluminescent microparticle immunoasssay on the [employer] Cpa i2000. The range is based on experience at [facility] and users should be aware that target concentrations vary widely depending on concomitant therapy, time post-transplant, and desired degree of immunosuppression. [facility] TACROLIMUS LEVEL, TROUGH (RI E DRUG LEVEL)on 01-16-2024 Tacrolimus, Trough 5.7 ng/mL Normal Bone Susana ow Transplant: 4.0-12.0, Therapeutic: 5.0-15.0 [facility] Comment on above: Order Comment: Pleas e draw at specified interval PRIOR to dose. Do not hold dose to wait for level. Specimens batched twice per day, (M-F) and once per day weekendsMethod performed is a chemiluminescent microparticle immunoasssay on the [employer] Cpa i2000.The range is based on experience at [facility] and users should be aware that target concentrations vary widely depending on concomitant therapy, time post-transplant, and desired degree of immunosuppression. Performed By: #### C A, CHM7, HFP, IPB, MGO #### [facility] (DEFAULT) [address] [place], [place] [id number] US ABDOMEN LIVER DOPPLERon 0 01-16-2024 US [...] effusion. Trace right upper quadrant ascites. Normal [facility] US.doppler Abdominal vessels on 01-16-2024 [...] pleural effusion. Trace right upper quadrant ascites. [facility] Radiology Study observation (narrative) [facility] US.doppler Abdominal vessels Ordered By: Iona Duran on 01-16-2024 [facility] Work Phone: XR CHEST PA AND [...] Normal IMPRESSION: Moderate right pleural effusion. Normal [facility] XR Chest PA and Lateralon [...] Normal IMPRESSION IMPRESSION: Moderate right pleural effusion. [facility] Radiology Study observation (narrative) [facility] XR Chest PA and LateralOrder ed By: Daisha Patterson on 01-16-2024 [facility] Work Phone: ALL CBC WITH AUTO DIFFon BASOPHILS ABSOLUTE AUTO 0.0 [facility] Basophils/100 WBC (Bld) 0.5 % 0.2 - 2.0 % [facility] Eosinophils/100 WBC (Bld) 2.8 % 0.9 - 7.0 % [facility] Erythrocyte distribution width (RBC) [Ratio] 13.8 % 11.0 - 15.0 % [facility] Hematocrit (Bld) [Volume fraction] 43.7 % 42.0 - 54.0 % [facility] Hemoglobin (Bld) [Mass/Vol] 14.0 g/dL 14.0 - 18.0 g/dL [facility] IMMATURE GRANULOCYTES ABS AUTO 0.01 [facility] Immature granulocytes/100 WBC (Bld) 0.3 % 0.0 - 0.5 % [facility] LYMPHOCYTES ABSOLUTE AUTO 1.5 [facility] Lymphocytes/100 WBC (Bld) 37.5 % 20.5 - 60.0 % [facility] MCH (RBC) [Entitic mass] 28.4 pg 25.9 - 34.0 pg [facility] MCHC (RBC) [Mass/Vol] 32.0 g/dL 29.9 - 35.2 g/dL [facility] MCV (RBC) [Entitic vol] 88.6 fL 80.0 - 94.0 fL [facility] MONOCYTES ABSOLUTE AUTO 0.5 [facility] Monocytes/100 WBC (Bld) 11.9 % 1.7 - 12.0 % [facility] NEUTROPHILS ABSOLUTE AUTO 1.9 [facility] Neutrophils/100 WBC (Bld) 47.0 % 43.0 - 75.0 % [facility] Platelet mean volume (Bld) [Entitic vol] 10.3 fL 9.5 - 13.5 fL [facility] TBH EO # 0.1 [facility] TBH PLT 180 [facility] RBC 4.93 [facility] TB WBC 4.0 [facility] ALL CBC WITH AUTO DIFFon BASOPHILS ABSOLUTE AUTO 0.0 [facility] Basophils/100 WBC (Bld) 0.5 % 0.2 - 2.0 % [facility] Eosinophils/100 WBC (Bld) 2.6 % 0.9 - 7.0 % [facility] Erythrocyte distribution width (RBC) [Ratio] 13.5 % 11.0 - 15.0 % [facility] Hematocrit (Bld) [Volume fraction] 43.8 % 42.0 - 54.0 % [facility] Hemoglobin (Bld) [Mass/Vol] 14.0 g/dL 14.0 - 18.0 g/dL [facility] IMMATURE GRANULOCYTES ABS AUTO 0.00 [facility] Immature granulocytes/100 WBC (Bld) 0.0 % 0.0 - 0.5 % [facility] Interpretation and review of laboratory results Abnormal [facility] LYMPHOCYTES ABSOLUTE AUTO 1.8 [facility] Lymphocytes/100 WBC (Bld) 45.2 % 20.5 - 60.0 % [facility] MCH (RBC) [Entitic mass] 27.9 pg 25.9 - 34.0 pg [facility] MCHC (RBC) [Mass/Vol] 32.0 g/dL 29.9 - 35.2 g/dL [facility] MCV (RBC) [Entitic vol] 87.4 fL 80.0 - 94.0 fL [facility] MONOCYTES ABSOLUTE AUTO 0.4 [facility] Monocytes/100 WBC (Bld) 9.6 % 1.7 - 12.0 % [facility] NEUTROPHILS ABSOLUTE AUTO 1.6 [facility] Neutrophils/100 WBC (Bld) 42.1 % Low 43.0 - 75.0 % [facility] Platelet mean volume (Bld) [Entitic vol] 9.8 fL 9.5 - 13.5 fL [facility] EO # 0.1 [facility] PLT 180 [facility] RBC 5.01 [facility] WBC 3.9 Low [facility] CHEM 7 (LYTES,BUN,CREA,GLUC) on 09-11-2023 Anion gap [Moles/Vol] 13 mmol/L 7 - 17 mmol/L [facility] Chloride [Moles/Vol] 111 mmol/L High 98 - 10 8 mmol/L [facility] CO2 [Moles/Vol] 20 mmol/L Low 21 - 31 mmol/L [facility] Creatinine [Mass/Vol] 1.13 mg/dL 0.70 - 1.30 mg/dL [facility] eGFR, CKD-EPI, Male 78 - PINF [facility] Glucose [Mass/Vol] 109 mg/dL High 70 - 99 mg/dL [facility] Interpretation and review of laboratory results Abnormal [facility] Osmolality Calc [Osmolality] 295 [facility] Potassium [Moles/Vol] 4.3 mmol/L 3.5 - 5.0 mmol/L [facility] Sodium [Moles/Vol] 140 mmol/L 135 - 145 mmol/L [facility] Urea nitrogen [Mass/Vol] 16 mg/dL 7 - 25 mg/dL [facility] Urea nitrogen/Creatinine [Mass ratio] 14 mg/mg [facility] Anion gap [Moles/Vol] 13 mmol/L Normal 7-17 [facility] Comment on above: Performed By: #### C Tray, CHM7, HFP, IPB, MGO #### [facility] (DEFAULT) [address] [place] [address] Chloride [Moles/Vol] 111 mmol/L High 98-108 [facility] Comment on above: Performed By: #### C Tray, CHM7, HFP, IPB, MGO #### [facility] (DEFAULT) [address] [place] [address] 10921 CO2 [Moles/Vol] 20 mmol/L Low 21-31 [facility] Comment on above: Performed By: #### C A, CHM7, HFP, IPB, MGO #### [facility] (DEFAULT) [address] [place] [address] 60271 Creatinine [Mass/Vol] 1.13 mg/dL Normal 0.70-1.30 [facility] Comment on above: Performed By: #### C A, CHM7, HFP, IPB, MGO #### [facility] (DEFAULT) [address] [place] [address] 84664 GFR/1.73 sq M.predicted among non-blacks MDRD (S/P/Bld) [Vol rate/Area] 78 mL/min/{1.73_m2} Normal >=60 [facility] Comment on above: Result Comment: Repo rted eGFR is based on the CKD-EPI 2020 equation using creatinine, age, and sex. Performed By: #### C A, CHM7, HFP, IPB, MGO #### [facility] (DEFAULT) [address] [place] [address]229 Glucose [Mass/Vol] 109 mg/dL High 70-99 [facility] Comment on above: Performed By: #### C A, CHM7, HFP, IPB, MGO #### [facility] (DEFAULT) [address] [place] [address]12 Osmolality [Osmolality] 295 mosm/kg Normal 278-305 [facility] Comment on above: Performed By: #### C A, CHM7, HFP, IPB, MGO #### [facility] (DEFAULT) [address] [place] [address]143 Potassium [Moles/Vol] 4.3 mmol/L Normal 3.5-5.0 [facility] Comment on above: Performed By: #### C A, CHM7, HFP, IPB, MGO #### [facility] (DEFAULT) [address] [place] [address] 03134 Sodium [Moles/Vol] 140 mmol/L Normal 135-145 [facility] Comment on above: Performed By: #### C A, CHM7, HFP, IPB, MGO #### [facility] (DEFAULT) [address] [place] [address] 45295 Urea nitrogen [Mass/Vol] 16 mg/dL Normal 7-25 [facility] Comment on above: Performed By: #### C A, CHM7, HFP, IPB, MGO #### [facility] (DEFAULT) [address] [place] [address] 63651 Urea nitrogen/Creatinine [Mass ratio] 14 mg/mg Normal [facility] Comment on above: Performed By: #### C A, CHM7, HFP, IPB, MGO #### [facility] (DEFAULT) [address] [place], [place] [id number] GLUCOSE POCon 09-11-2023 Glucose [Mass/Vol] 108 mg/dL High 70 - 99 mg/dL [facility] Interpretation and review of laboratory results Abnormal [facility] POC Sample Type CAPBL [facility] Legionella sp identified Org specific cx Nom (Unsp spec)on 09-11-2023 Bacteria identified Cx Nom (Unsp spec) NO GROWTH DAY 7 OF 7 [facility] MAGNESIUMon 09-11-2023 Interpretation and review of laboratory results Normal [facility] Magnesium [Mass/Vol] 1.6 mg/dL 1.6 - 2 .6 mg/dL [facility] Magnesium [Mass/Vol] 1.6 mg/dL Normal 1.6-2.6 [facility] Comment on above: Performed By: #### C Tray, CHM7, HFP, IPB, MGO #### [facility] (DEFAULT) [address] [place] [address] No Panel Informationon 09-11 [facility] TACROLIMUS LEVEL, TROUGH (RI E DRUG LEVEL)on 09-11-2023 Interpretation and review of laboratory results Normal [facility] Tacrolimus (Bld) [Mass/Vol] 11.5 ng/mL [facility] Tacrolimus, Trough 11.5 ng/mL Normal [facility] Susana ow Transplant: 4.0-12.0, Therapeutic: 5.0-15.0 [facility] Comment on above: Order Comment: Pleas e draw at specified interval PRIOR to dose. Do not hold dose to wait for level. Specimens batched twice per day, (M-F) and once per day weekendsMethod performed is a chemiluminescent microparticle immunoasssay on the [employer] Cpa i2000.The range is based on experience at [facility] and users should be aware that target concentrations vary widely depending on concomitant therapy, time post-transplant, and desired degree of immunosuppression. Performed By: #### C NATHANIEL Feliz HFP, IPB, DOMENICA #### [facility] (DEFAULT) [address] [place] [address] CBC,PLATELETSon 09-10-2023 Erythrocyte distribution width (RBC) [Ratio] 13.9 % 10.9 - 14.3 % [facility] Hematocrit (Bld) [Volume fraction] 40.0 % 39.6 - 48.8 % [facility] Hemoglobin (Bld) [Mass/Vol] 12.7 g/dL Low 13.4 - 16.8 g/dL [facility] Interpretation and review of laboratory results Abnormal [facility] MCH (RBC) [Entitic mass] 27.3 pg 26.1 - 33.3 pg [facility] MCHC (RBC) [Mass/Vol] 31.8 g/dL Low 31.9 - 36.5 g/dL [facility] MCV (RBC) [Entitic vol] 86.0 fL 79.0 - 94.5 fL [facility] Platelet mean volume (Bld) [Entitic vol] 9.5 fL 8.7 - 12.3 fL [facility] Platelets (Bld) [#/Vol] 225 10*3/uL 146 - 337 K/uL [facility] RBC (Bld) [#/Vol] 4.65 10*6/uL [facility] WBC (Bld) [#/Vol] 6.52 10*3/uL 3.73 - 10. 10 K/uL [facility] Hematocrit (Bld) [Volume fraction] 40.0 % Normal 39.6-48.8 [facility] Comment on above: Performed By: #### C NATHANIEL Feliz, TAVO, JO ANN, MGO #### [facility] (DEFAULT) [address] [place] [address] Hemoglobin (Bld) [Mass/Vol] 12.7 g/dL Low 13.4-16.8 [facility] Comment on above: Performed By: #### C Tray, CHM7, HFP, IPB, MGO #### [facility] (DEFAULT) [address] [place] [address] 93993 MCV (RBC) [Entitic vol] 86.0 fL Normal 79.0-94.5 [facility] Comment on above: Performed By: #### Chinedu Feliz, CHM7, HFP, IPB, MGO #### [facility] (DEFAULT) [address] [place] [address] 47544 Mean Cell Hgb 27.3 pg Normal 26.1-33.3 [facility] Comment on above: Performed By: #### Chinedu Feliz, CHM7, HFP, IPB, MGO #### [facility] (DEFAULT) [address] [place] [address] 18984 Mean Cell Hgb Conc 31.8 g/dL Low 31.9-36.5 [facility] Comment on above: Performed By: #### Chinedu Feliz, CHM7, HFP, IPB, MGO #### [facility] (DEFAULT) [address] [place] [address] 68470 Platelet mean volume (Bld) [Entitic vol] 9.5 fL Normal 8.7-12.3 [facility] Comment on above: Performed By: #### C Tray, CHM7, HFP, IPB, MGO #### [facility] (DEFAULT) [address] [place] [address] 60600 Platelets (Bld) [#/Vol] 225 10*3/uL Normal 146-337 [facility] Comment on above: Performed By: #### C A, CHM7, HFP, IPB, MGO #### [facility] (DEFAULT) [address] [place] [address] 16493 RBC (Bld) [#/Vol] 4.65 10*6/uL Normal 4.38-5.83 [facility] Comment on above: Performed By: #### C A, CHM7, HFP, IPB, MGO #### [facility] (DEFAULT) [address] [place] [address] RBC Distribution 13.9 % Normal 10.9-14.3 [facility] Comment on above: Performed By: #### C A, CHM7, HFP, IPB, MGO #### [facility] (DEFAULT) [address] [place] [address] 20680 WBC (Bld) [#/Vol] 6.52 10*3/uL Normal 3.73-10.10 [facility] Comment on above: Performed By: #### C A, CHM7, HFP, IPB, MGO #### [facility] (DEFAULT) [address] [place] [address] 96103 CHEM 7 (LYTES,BUN,CREA,GLUC) on 09-10-2023 Anion gap [Moles/Vol] 13 mmol/L 7 - 17 mmol/L [facility] Chloride [Moles/Vol] 111 mmol/L High 98 - 10 8 mmol/L [facility] CO2 [Moles/Vol] 20 mmol/L Low 21 - 31 mmol/L [facility] Creatinine [Mass/Vol] 1.27 mg/dL 0.70 - 1.30 mg/dL [facility] eGFR, CKD-EPI, Male 68 - PINF [facility] Glucose [Mass/Vol] 100 mg/dL High 70 - 99 mg/dL [facility]c [facility]olality] [facility] Potassium [Moles/Vol] 4.4 mmol/L 3.5 - 5.0 mmol/L [facility] Sodium [Moles/Vol] 140 mmol/L 135 - 145 mmol/L [facility] Urea nitrogen [Mass/Vol] 12 mg/dL 7 - 25 mg/dL [facility] Urea nitrogen/Creatinine [Mass ratio] 9 mg/mg [facility] Anion gap [Moles/Vol] 13 mmol/L Normal 7-17 [facility] Comment on above: Performed By: #### C HM7, HFP, MGO #### [facility] (DEFAULT) [address] [place] [address] 85246 Chloride [Moles/Vol] 111 mmol/L High 98-108 [facility] Comment on above: Performed By: #### C HM7, HFP, MGO #### [facility] (DEFAULT) [address] [place] [address] 10015 CO2 [Moles/Vol] 20 mmol/L Low 21-31 [facility] Comment on above: Performed By: #### C HM7, HFP, MGO #### [facility] (DEFAULT) [address] [place] [address] 88051 Creatinine [Mass/Vol] 1.27 mg/dL Normal 0.70-1.30 [facility] Comment on above: Performed By: #### C HM7, HFP, MGO #### [facility] (DEFAULT) [address] [place] [address] 32982 GFR/1.73 sq M.predicted among non-blacks MDRD (S/P/Bld) [Vol rate/Area] 68 mL/min/{1.73_m2} Normal >=60 [facility] Comment on above: Result Comment: Repo rted eGFR is based on the CKD-EPI 2020 equation using creatinine, age, and sex. Performed By: #### C HM7, HFP, MGO #### [facility] (DEFAULT) [address] [place] [address] 51173 Glucose [Mass/Vol] 100 mg/dL High 70-99 [facility] Comment on above: Performed By: #### C HM7, HFP, MGO #### [facility] (DEFAULT) [address] [place] [address] 13562 Osmolality [Osmolality] 293 mosm/kg Normal 278-305 [facility] Comment on above: Performed By: #### C HM7, HFP, MGO #### [facility] (DEFAULT) [address] [place] [address] Potassium [Moles/Vol] 4.4 mmol/L Normal 3.5-5.0 [facility] Comment on above: Performed By: #### C HM7, HFP, MGO #### [facility] (DEFAULT) [address] [place] [address] Sodium [Moles/Vol] 140 mmol/L Normal 135-145 [facility] Comment on above: Performed By: #### C HM7, HFP, MGO #### [facility] (DEFAULT) [address] [place] [address] 47472 Urea nitrogen [Mass/Vol] 12 mg/dL Normal 7-25 [facility] Comment on above: Performed By: #### C HM7, HFP, MGO #### [facility] (DEFAULT) [address] [place] [address] 47842 Urea nitrogen/Creatinine [Mass ratio] 9 mg/mg Normal [facility] Comment on above: Performed By: #### C HM7, HFP, MGO #### [facility] (DEFAULT) [address] [place] [address] 87548 HEPATIC FUNCTION PANELon Albumin [Mass/Vol] 3.3 g/dL Low 3.5 - 5.0 g/dL [facility] ALP [Catalytic activity/Vol] 143 U/L High 32 - 126 U/L [facility] ALT [Catalytic activity/Vol] 28 U/L 10 - 52 U/L [facility] AST [Catalytic activity/Vol] 29 U/L 10 - 39 U/L [facility] Bilirubin [Mass/Vol] 0.9 mg/dL NINF - 1.5 mg/dL [facility] Bilirubin.direct [Mass/Vol] 0.2 mg/dL NINF - 0.3 mg/dL [facility] Protein [Mass/Vol] 6.8 g/dL 6.4 - 8.3 g/dL [facility] Albumin [Mass/Vol] 3.3 g/dL Low 3.5-5.0 [facility] Comment on above: Performed By: #### C HM7, HFP, MGO #### [facility] (DEFAULT) [address] [place] [address] 80738 ALP [Catalytic activity/Vol] 143 U/L High 32-126 [facility] Comment on above: Performed By: #### Chinedu HM7, HFP, MGO #### [facility] (DEFAULT) [address] [place] [address] 37695 ALT [Catalytic activity/Vol] 28 U/L Normal 10-52 [facility] Comment on above: Performed By: #### C HM7, HFP, MGO #### [facility] (DEFAULT) [address] [place] [address] 78473 AST [Catalytic activity/Vol] 29 U/L Normal 10-39 [facility] Comment on above: Performed By: #### C HM7, HFP, MGO #### [facility] (DEFAULT) [address] [place] [address] 76747 Bilirubin [Mass/Vol] 0.9 mg/dL Normal <1.5 [facility] Comment on above: Performed By: #### Chinedu HM7, HFP, MGO #### [facility] (DEFAULT) [address] [place] [address] 00428 Bilirubin.indirect [Mass/Vol] 0.2 mg/dL Normal <0.3 [facility] Comment on above: Performed By: #### Chinedu HM7, HFP, MGO #### [facility] (DEFAULT) [address] [place] [address] 24801 Protein [Mass/Vol] 6.8 g/dL Normal 6.4-8.3 [facility] Comment on above: Performed By: #### C HM7, HFP, MGO #### [facility] (DEFAULT) [address] [place] [address] 43104 MAGNESIUMon 09-10-2023 Interpretation and review of laboratory results Normal [facility] Magnesium [Mass/Vol] 1.9 mg/dL 1.6 - 2 .6 mg/dL [facility] Magnesium [Mass/Vol] 1.9 mg/dL Normal 1.6-2.6 [facility] Comment on above: Performed By: #### C HM7, TAVO, MGO #### [facility] (DEFAULT) [address] [place] [address] No Panel Informationon 09-10 Interpretation and review of laboratory results Abnormal [facility] TACROLIMUS LEVEL, TROUGH (RI E DRUG LEVEL)Ordered By: Jimy Castillo on 09-10-2023 Interpretation and review of laboratory results Normal [facility] Tacrolimus (Bld) [Mass/Vol] 11.8 ng/mL [facility] TACROLIMUS LEVEL, TROUGH (RI E DRUG LEVEL)on 09-10-2023 Tacrolimus, Trough 11.8 ng/mL Normal Bone Susana ow Transplant: 4.0-12.0, Therapeutic: 5.0-15.0 [facility] Comment on above: Order Comment: Pleas e draw at specified interval PRIOR to dose. Do not hold dose to wait for level. Specimens batched twice per day, (M-F) and once per day weekendsMethod performed is a chemiluminescent microparticle immunoasssay on the [employer] Cpa i2000.The range is based on experience at [facility] and users should be aware that target concentrations vary widely depending on concomitant therapy, time post-transplant, and desired degree of immunosuppression. Performed By: #### C JASMYNE, TAVO, MGO #### [facility] (DEFAULT) [address] [place] [address] CHEM 7 (LYTES,BUN,CREA,GLUC) on 09-09-2023 Anion gap [Moles/Vol] 14 mmol/L 7 - 17 mmol/L [facility] Chloride [Moles/Vol] 113 mmol/L High 98 - 10 8 mmol/L [facility] CO2 [Moles/Vol] 18 mmol/L Low 21 - 31 mmol/L [facility] Creatinine [Mass/Vol] 1.03 mg/dL 0.70 - 1.30 mg/dL [facility] eGFR, CKD-EPI, Male 87 - PINF [facility] Glucose [Mass/Vol] 106 mg/dL High 70 - 99 mg/dL [facility] Interpretation and review of laboratory results Abnormal [facility] Osmolality Calc [Osmolality] 294 [facility] Potassium [Moles/Vol] 4.0 mmol/L 3.5 - 5.0 mmol/L [facility] Sodium [Moles/Vol] 141 mmol/L 135 - 145 mmol/L [facility] Urea nitrogen [Mass/Vol] 10 mg/dL 7 - 25 mg/dL [facility] Urea nitrogen/Creatinine [Mass ratio] 10 mg/mg [facility] MAGNESIUMon 09-09-2023 Magnesium [Mass/Vol] 1.6 mg/dL 1.6 - 2 .6 mg/dL [facility] No Panel Informationon 09-09 Interpretation and review of laboratory results Normal [facility] PHOSPHATE, INORGANICon 09-09 Phosphate [Mass/Vol] 3.8 mg/dL 2.2 - 4 .6 mg/dL [facility] TACROLIMUS LEVEL, TROUGH (RI E DRUG LEVEL)on 09-09-2023 Interpretation and review of laboratory results Normal [facility] Tacrolimus (Bld) [Mass/Vol] 9.2 ng/mL [facility] CBC,PLATELETSon 09-08-2023 Erythrocyte distribution width (RBC) [Ratio] 13.6 % 10.9 - 14.3 % [facility] Hematocrit (Bld) [Volume fraction] 36.1 % Low 39.6 - 48.8 % [facility] Hemoglobin (Bld) [Mass/Vol] 11.6 g/dL Low 13.4 - 16.8 g/dL [facility] Interpretation and review of laboratory results Abnormal [facility] MCH (RBC) [Entitic mass] 27.4 pg 26.1 - 33.3 pg [facility] MCHC (RBC) [Mass/Vol] 32.1 g/dL 31.9 - 36.5 g/dL [facility] MCV (RBC) [Entitic vol] 85.1 fL 79.0 - 94.5 fL [facility] Platelet mean volume (Bld) [Entitic vol] 9.5 fL 8.7 - 12.3 fL [facility] Platelets (Bld) [#/Vol] 182 10*3/uL 146 - 337 K/uL [facility] RBC (Bld) [#/Vol] 4.24 10*6/uL Low [facility] WBC (Bld) [#/Vol] 4.59 10*3/uL 3.73 - 10. 10 K/uL [facility] CHEM 7 (LYTES,BUN,CREA,GLUC) on 09-08-2023 Anion gap [Moles/Vol] 12 mmol/L 7 - 17 mmol/L [facility] Chloride [Moles/Vol] 113 mmol/L High 98 - 10 8 mmol/L [facility] CO2 [Moles/Vol] 21 mmol/L 21 - 31 mmol/L [facility] Creatinine [Mass/Vol] 1.14 mg/dL 0.70 - 1.30 mg/dL [facility] eGFR, CKD-EPI, Male 77 - PINF [facility] Glucose [Mass/Vol] 107 mg/dL High 70 - 99 mg/dL [facility] Osmolality Calc [Osmolality] 296 [facility] Potassium [Moles/Vol] 3.9 mmol/L 3.5 - 5.0 mmol/L [facility] Sodium [Moles/Vol] 142 mmol/L 135 - 145 mmol/L [facility] Urea nitrogen [Mass/Vol] 11 mg/dL 7 - 25 mg/dL [facility] Urea nitrogen/Creatinine [Mass ratio] 10 mg/mg [facility] HEPATIC FUNCTION PANELon Albumin [Mass/Vol] 2.9 g/dL Low 3.5 - 5.0 g/dL [facility] ALP [Catalytic activity/Vol] 133 U/L High 32 - 126 U/L [facility] ALT [Catalytic activity/Vol] 23 U/L 10 - 52 U/L [facility] AST [Catalytic activity/Vol] 23 U/L 10 - 39 U/L [facility] Bilirubin [Mass/Vol] 0.8 mg/dL NINF - 1.5 mg/dL [facility] Bilirubin.direct [Mass/Vol] 0.2 mg/dL NINF - 0.3 mg/dL [facility] Protein [Mass/Vol] 5.9 g/dL Low 6.4 - 8.3 g/dL [facility] MAGNESIUMon 09-08-2023 Interpretation and review of laboratory results Normal [facility] Magnesium [Mass/Vol] 1.8 mg/dL 1.6 - 2 .6 mg/dL [facility] No Panel Informationon 09-08 Interpretation and review of laboratory results Abnormal [facility] PHOSPHATE, INORGANICon 09-08 Interpretation and review of laboratory results Normal [facility] Phosphate [Mass/Vol] 4.1 mg/dL 2.2 - 4 .6 mg/dL [facility] TACROLIMUS LEVEL, TROUGH (RI E DRUG LEVEL)on 09-08-2023 Interpretation and review of laboratory results Normal [facility] Tacrolimus (Bld) [Mass/Vol] 8.5 ng/mL [facility] CBC,PLATELETSon 09-07-2023 Erythrocyte distribution width (RBC) [Ratio] 13.5 % 10.9 - 14.3 % [facility] Hematocrit (Bld) [Volume fraction] 37.1 % Low 39.6 - 48.8 % [facility] Hemoglobin (Bld) [Mass/Vol] 11.9 g/dL Low 13.4 - 16.8 g/dL [facility] Interpretation and review of laboratory results Abnormal [facility] MCH (RBC) [Entitic mass] 27.7 pg 26.1 - 33.3 pg [facility] MCHC (RBC) [Mass/Vol] 32.1 g/dL 31.9 - 36.5 g/dL [facility] MCV (RBC) [Entitic vol] 86.5 fL 79.0 - 94.5 fL [facility] Platelet mean volume (Bld) [Entitic vol] 9.6 fL 8.7 - 12.3 fL [facility] Platelets (Bld) [#/Vol] 176 10*3/uL 146 - 337 K/uL [facility] RBC (Bld) [#/Vol] 4.29 10*6/uL Low [facility] WBC (Bld) [#/Vol] 4.10 10*3/uL 3.73 - 10. 10 K/uL [facility] CHEM 7 (LYTES,BUN,CREA,GLUC) on 09-07-2023 Anion gap [Moles/Vol] 13 mmol/L 7 - 17 mmol/L [facility] Chloride [Moles/Vol] 113 mmol/L High 98 - 10 8 mmol/L [facility] CO2 [Moles/Vol] 19 mmol/L Low 21 - 31 mmol/L [facility] Creatinine [Mass/Vol] 1.22 mg/dL 0.70 - 1.30 mg/dL [facility] eGFR, CKD-EPI, Male 71 - PINF [facility] [facility] Glucose [Mass/Vol] 107 mg/dL High 70 - 99 mg/dL [facility]olality] [facility] Potassium [Moles/Vol] 3.9 mmol/L 3.5 - 5.0 mmol/L [facility] Sodium [Moles/Vol] 141 mmol/L 135 - 145 mmol/L [facility] Urea nitrogen [Mass/Vol] 13 mg/dL 7 - 25 mg/dL [facility] Urea nitrogen/Creatinine [Mass ratio] 11 mg/mg [facility] HEPATIC FUNCTION PANELon Albumin [Mass/Vol] 2.9 g/dL Low 3.5 - 5.0 g/dL [facility] ALP [Catalytic activity/Vol] 111 U/L 32 - 126 U/L [facility] ALT [Catalytic activity/Vol] 18 U/L 10 - 52 U/L [facility] AST [Catalytic activity/Vol] 23 U/L 10 - 39 U/L [facility] Bilirubin [Mass/Vol] 0.8 mg/dL NINF - 1.5 mg/dL [facility] Bilirubin.direct [Mass/Vol] 0.3 mg/dL High NINF - 0.3 mg/dL [facility] Protein [Mass/Vol] 6.0 g/dL Low 6.4 - 8.3 g/dL [facility] MAGNESIUMon 09-07-2023 Interpretation and review of laboratory results Normal [facility] Magnesium [Mass/Vol] 1.7 mg/dL 1.6 - 2 .6 mg/dL [facility] No Panel Informationon 09-07 Interpretation and review of laboratory results Abnormal [facility] PHOSPHATE, INORGANICon 09-07 Interpretation and review of laboratory results Normal [facility] Phosphate [Mass/Vol] 4.4 mg/dL 2.2 - 4 .6 mg/dL [facility] TACROLIMUS LEVEL, TROUGH (RI E DRUG LEVEL)Ordered By: Elizabeth Maldonado on 09-07-2023 Interpretation and review of laboratory results Normal [facility] Tacrolimus (Bld) [Mass/Vol] 7.8 ng/mL [facility] CBC,PLATELETSon 09-06-2023 Erythrocyte distribution width (RBC) [Ratio] 13.4 % 10.9 - 14.3 % [facility] Hematocrit (Bld) [Volume fraction] 38.4 % Low 39.6 - 48.8 % [facility] Hemoglobin (Bld) [Mass/Vol] 11.9 g/dL Low 13.4 - 16.8 g/dL [facility] Interpretation and review of laboratory results Abnormal [facility] MCH (RBC) [Entitic mass] 26.6 pg 26.1 - 33.3 pg [facility] MCHC (RBC) [Mass/Vol] 31.0 g/dL Low 31.9 - 36.5 g/dL [facility] MCV (RBC) [Entitic vol] 85.9 fL 79.0 - 94.5 fL [facility] Platelet mean volume (Bld) [Entitic vol] 9.7 fL 8.7 - 12.3 fL [facility] Platelets (Bld) [#/Vol] 181 10*3/uL 146 - 337 K/uL [facility] RBC (Bld) [#/Vol] 4.47 10*6/uL [facility] WBC (Bld) [#/Vol] 4.41 10*3/uL 3.73 - 10. 10 K/uL [facility] CHEM 7 (LYTES,BUN,CREA,GLUC) on 09-06-2023 Anion gap [Moles/Vol] 14 mmol/L 7 - 17 mmol/L [facility] Chloride [Moles/Vol] 109 mmol/L High 98 - 10 8 mmol/L [facility] CO2 [Moles/Vol] 19 mmol/L Low 21 - 31 mmol/L [facility] Creatinine [Mass/Vol] 1.26 mg/dL 0.70 - 1.30 mg/dL [facility] eGFR, CKD-EPI, Male 70 - PINF [facility] Glucose [Mass/Vol] 114 mg/dL High 70 - 99 mg/dL [facility] Osmolality Calc [Osmolality] 291 [facility] Potassium [Moles/Vol] 4.1 mmol/L 3.5 - 5.0 mmol/L [facility] Sodium [Moles/Vol] 138 mmol/L 135 - 145 mmol/L [facility] Urea nitrogen [Mass/Vol] 16 mg/dL 7 - 25 mg/dL [facility] Urea nitrogen/Creatinine [Mass ratio] 13 mg/mg [facility] HEPATIC FUNCTION PANELon Albumin [Mass/Vol] 3.0 g/dL Low 3.5 - 5.0 g/dL [facility] ALP [Catalytic activity/Vol] 115 U/L 32 - 126 U/L [facility] ALT [Catalytic activity/Vol] 25 U/L 10 - 52 U/L [facility] AST [Catalytic activity/Vol] 31 U/L 10 - 39 U/L [facility] Bilirubin [Mass/Vol] 1.0 mg/dL NINF - 1.5 mg/dL [facility] Bilirubin.direct [Mass/Vol] 0.3 mg/dL High NINF - 0.3 mg/dL [facility] Protein [Mass/Vol] 6.3 g/dL Low 6.4 - 8.3 g/dL [facility] MAGNESIUMon 09-06-2023 Interpretation and review of laboratory results Normal [facility] Magnesium [Mass/Vol] 2.0 mg/dL 1.6 - 2 .6 mg/dL [facility] No Panel Informationon 09-06 Interpretation and review of laboratory results Abnormal [facility] TACROLIMUS LEVEL, TROUGH (RI E DRUG LEVEL)on 09-06-2023 Interpretation and review of laboratory results Normal [facility] Tacrolimus (Bld) [Mass/Vol] 6.7 ng/mL [facility] CBC,PLATELETSon 09-05-2023 Erythrocyte distribution width (RBC) [Ratio] 13.5 % 10.9 - 14.3 % [facility] Hematocrit (Bld) [Volume fraction] 35.6 % Low 39.6 - 48.8 % [facility] Hemoglobin (Bld) [Mass/Vol] 11.4 g/dL Low 13.4 - 16.8 g/dL [facility] Interpretation and review of laboratory results Abnormal [facility] MCH (RBC) [Entitic mass] 27.5 pg 26.1 - 33.3 pg [facility] MCHC (RBC) [Mass/Vol] 32.0 g/dL 31.9 - 36.5 g/dL [facility] MCV (RBC) [Entitic vol] 86.0 fL 79.0 - 94.5 fL [facility] Platelet mean volume (Bld) [Entitic vol] 10.0 fL 8.7 - 12.3 fL [facility] Platelets (Bld) [#/Vol] 170 10*3/uL 146 - 337 K/uL [facility] RBC (Bld) [#/Vol] 4.14 10*6/uL [facility] WBC (Bld) [#/Vol] 4.24 10*3/uL 3.73 - 10. 10 K/uL [facility] CHEM 7 (LYTES,BUN,CREA,GLUC) on 09-05-2023 Anion gap [Moles/Vol] 12 mmol/L 7 - 17 mmol/L [facility] Chloride [Moles/Vol] 107 mmol/L 98 - 10 8 mmol/L [facility] CO2 [Moles/Vol] 20 mmol/L Low 21 - 31 mmol/L [facility] Creatinine [Mass/Vol] 1.43 mg/dL High 0.70 - 1.30 mg/dL [facility] eGFR, CKD-EPI, Male 60 Low - PINF [facility] Glucose [Mass/Vol] 111 mg/dL High 70 - 99 mg/dL [facility] Osmolality Calc [Osmolality] [facility] Potassium [Moles/Vol] 4.2 mmol/L 3.5 - 5.0 mmol/L [facility] Sodium [Moles/Vol] 135 mmol/L 135 - 145 mmol/L [facility] Urea nitrogen [Mass/Vol] 18 mg/dL 7 - 25 mg/dL [facility] Urea nitrogen/Creatinine [Mass ratio] 13 mg/mg [facility] CONTINUOUS CARDIAC MONITORIN G STRIPon 09-05-2023 [facility] HEPATIC FUNCTION PANELon Albumin [Mass/Vol] 2.8 g/dL Low 3.5 - 5.0 g/dL [facility] ALP [Catalytic activity/Vol] 103 U/L 32 - 126 U/L [facility] ALT [Catalytic activity/Vol] 26 U/L 10 - 52 U/L [facility] AST [Catalytic activity/Vol] 38 U/L 10 - 39 U/L [facility] Bilirubin [Mass/Vol] 0.9 mg/dL NINF - 1.5 mg/dL [facility] Bilirubin.direct [Mass/Vol] 0.1 mg/dL NINF - 0.3 mg/dL [facility] Protein [Mass/Vol] 6.1 g/dL Low 6.4 - 8.3 g/dL [facility] HISTOPLASMA ANTIGEN, FLUIDon 09-05-2023 FH SOURCE BAL RML [facility] Histo FLD interpretation Negative [facility] Histoplasma Antigen, FLUID Not detected ng/mL [facility] HISTOPLASMA CAPSULATUM/BLAST OMYCES SPECIES,PCR FLUIDon 09-05-2023 HISTO/BLASTO RESULT Negative Not Applicable [facility] Specimen source Nom (Unsp spec) BAL RML [facility] IMMUNOPHENOTYPING, TISSUE/FL UIDon 09-05-2023 BKR DX CODE Use Ordering [facility] Flow Interpretation See Comment [facility] Flow Interpreted by: Yossi Perla MD, PhD [facility] MAGNESIUMon 09-05-2023 Interpretation and review of laboratory results Normal [facility] Magnesium [Mass/Vol] 1.7 mg/dL 1.6 - 2 .6 mg/dL [facility] No Panel Informationon 09-05 Interpretation and review of laboratory results Abnormal [facility] TACROLIMUS LEVEL, TROUGH (RI E DRUG LEVEL)Ordered By: Raymundo Mehta on 09-05-2023 Interpretation and review of laboratory results Normal [facility] Tacrolimus (Bld) [Mass/Vol] 5.3 ng/mL [facility] ARTERIAL BLOOD GAS (FULL GOSS EL)on 09-04-2023 Base excess Calc (Bld) [Moles/Vol] -1.2000 mmol/L -3.0 - 3.0 mmol/L [facility] Calcium.ionized (Bld) [Mass/Vol] 4.79 mg/dL 4.60 - 5.30 mg/dL [facility] Carboxyhemoglobin (Bld) [Mass fraction] 0.7 % NINF - 1.5 % [facility] CO2 (Bld) [Partial pressure] 30 mm[Hg] Low [facility] Glucose [Mass/Vol] 159 mg/dL High 70 - 99 mg/dL [facility] HCO3 (Bld) [Moles/Vol] 22 mmol/L 22 - 28 mmol/L [facility] Hematocrit (Bld) [Volume fraction] 38.0 % Low 40.2 - 50.4 % [facility] Hemoglobin (Bld) [Mass/Vol] 12.6 g/dL Low 13.4 - 16.8 g/dL [facility] Interpretation and review of laboratory results Abnormal [facility] Lactate [Moles/Vol] 2.0 mmol/L High 0.5 - 1. 6 mmol/L [facility] Methemoglobin (Bld) [Mass fraction] 0.0 % NINF - 1.5 % [facility] Oxygen (Bld) [Partial pressure] 62 mm[Hg] Low [facility] Oxygen saturation in Blood 92 % Low 94 - 98 % [facility] Oxyhemoglobin 91 % Low 94 - 98 % [facility] pH (Bld) 7.48 [pH] High 7.35 - 7.45 [facility] Potassium [Moles/Vol] 4.2 mmol/L 3.5 - 5.0 mmol/L [facility] Sodium [Moles/Vol] 130 mmol/L Low 135 - 145 mmol/L [facility] Specimen source Nom (Unsp spec) Arterial [facility] Bacteria identified Respirat ory culture Nom (Unsp spec)on 09-04-2023 Bacteria identified Cx Nom (Unsp spec) NO GROWTH DAY 2 OF 2 [facility] Microscopic observation Other stain Nom (Unsp spec) Cytocentrifuge preparation [facility] Microscopic observation Other stain Nom (Unsp spec) Neutrophils, Rare [facility] Microscopic observation Other stain Nom (Unsp spec) Red Blood Cells Present [facility] Microscopic observation Other stain Nom (Unsp spec) No organisms seen [facility] Bacteria identified Respirat ory culture Nom (Unsp spec)Ordered By: Jose Salgado on 09-04-2023 Bacteria identified Cx Nom (Unsp spec) NO GROWTH DAY 2 OF 2 [facility] Microscopic observation Other stain Nom (Unsp spec) Cytocentrifuge preparation [facility] Microscopic observation Other stain Nom (Unsp spec) Neutrophils, Moderate [facility] Microscopic observation Other stain Nom (Unsp spec) Red Blood Cells Present [facility] Microscopic observation Other stain Nom (Unsp spec) No organisms seen [facility] CBC,PLATELETSon 09-04-2023 Erythrocyte distribution width (RBC) [Ratio] 13.2 % 10.9 - 14.3 % [facility] Hematocrit (Bld) [Volume fraction] 38.7 % Low 39.6 - 48.8 % [facility] Hemoglobin (Bld) [Mass/Vol] 12.3 g/dL Low 13.4 - 16.8 g/dL [facility] Interpretation and review of laboratory results Abnormal [facility] MCH (RBC) [Entitic mass] 27.9 pg 26.1 - 33.3 pg [facility] MCHC (RBC) [Mass/Vol] 31.8 g/dL Low 31.9 - 36.5 g/dL [facility] MCV (RBC) [Entitic vol] 87.8 fL 79.0 - 94.5 fL [facility] Platelet mean volume (Bld) [Entitic vol] 9.8 fL 8.7 - 12.3 fL [facility] Platelets (Bld) [#/Vol] 173 10*3/uL 146 - 337 K/uL [facility] RBC (Bld) [#/Vol] 4.41 10*6/uL [facility] WBC (Bld) [#/Vol] 4.57 10*3/uL 3.73 - 10. 10 K/uL [facility] CHEM 7 (LYTES,BUN,CREA,GLUC) on 09-04-2023 Anion gap [Moles/Vol] 16 mmol/L 7 - 17 mmol/L [facility] Chloride [Moles/Vol] 104 mmol/L 98 - 10 8 mmol/L [facility] CO2 [Moles/Vol] 18 mmol/L Low 21 - 31 mmol/L [facility] Creatinine [Mass/Vol] 1.22 mg/dL 0.70 - 1.30 mg/dL [facility] eGFR, CKD-EPI, Male 72 - PINF [facility] Glucose [Mass/Vol] 124 mg/dL High 70 - 99 mg/dL [facility] Osmolality Calc [Osmolality] 284 [facility] Potassium [Moles/Vol] 3.9 mmol/L 3.5 - 5.0 mmol/L [facility] Sodium [Moles/Vol] 134 mmol/L Low 135 - 145 mmol/L [facility] Urea nitrogen [Mass/Vol] 15 mg/dL 7 - 25 mg/dL [facility] Urea nitrogen/Creatinine [Mass ratio] 12 mg/mg [facility] CMV PCR,FLUIDS,URINE,EYE ETC on 09-04-2023 Specimen source Nom (Unsp spec) BAL LLL [facility] Specimen source Nom (Unsp spec) BAL RML [facility] HEPATIC FUNCTION PANELon Albumin [Mass/Vol] 3.0 g/dL Low 3.5 - 5.0 g/dL [facility] ALP [Catalytic activity/Vol] 112 U/L 32 - 126 U/L [facility] ALT [Catalytic activity/Vol] 22 U/L 10 - 52 U/L [facility] AST [Catalytic activity/Vol] 30 U/L 10 - 39 U/L [facility] Bilirubin [Mass/Vol] 1.2 mg/dL NINF - 1.5 mg/dL [facility] Bilirubin.direct [Mass/Vol] 0.4 mg/dL High NINF - 0.3 mg/dL [facility] Protein [Mass/Vol] 6.4 g/dL 6.4 - 8.3 g/dL [facility] LEGIONELLA PCRon 09-04-2023 Legionella sp rRNA Probe Ql (Unsp spec) Negative Not Applicable [facility] Specimen source Nom (Unsp spec) BAL RML [facility] - Microbiology an d Antimicrobial susceptibilityon 09-04-2023 CMV DNA ESTELITA+probe Ql (Unsp spec) Negative Negative [facility] MAGNESIUMon 09-04-2023 Magnesium [Mass/Vol] 1.4 mg/dL Low 1.6 - 2 .6 mg/dL [facility] No Panel Informationon 09-04 Annotation comment [Interpretation] Narrative DNR [facility] PN Report Status DNR [facility] Pneumocystis jiroveci,PCR result Negative Not Applicable [facility] Interpretation and review of laboratory results Abnormal [facility] PNEUMOCYSTIS JIROVECI,PCRon 09-04-2023 Specimen source Nom (Unsp spec) BAL LLL [facility] Specimen source Nom (Unsp spec) BAL RML [facility] Portable XR Chest Viewson RADIOLOGY RADIOLOGY [facility] Radiology Study observation (narrative) [facility] Portable XR Chest ViewsOrder ed By: Joanie Nugent on 09-04-2023 [facility] Work Phone: TACROLIMUS LEVEL, TROUGH (RI E DRUG LEVEL)on 09-04-2023 Interpretation and review of laboratory results Abnormal [facility] Tacrolimus (Bld) [Mass/Vol] 3.6 ng/mL Low [facility] ASPERGILLUS ANTIGEN, BALon 1 Galactomannan Ag IA Qn (Unsp spec) [facility]0.[facility] Galactomannan Ag IA Qn (Unsp spec) <0.500 [facility] BAL CONSULTOrdered By: Noa Peralta on 09-03-2023 ALVEOLAR MACROPHAGES 32 % [facility] Work Phone: Bal comments Correlation with microbiology stains and cultures is recommended. [facility] Work Phone: Bal Diff Quik Stain Quality Check Acceptable [facility] Work Phone: BKR BAL INTERPRETATION Cellular specimen comprised of alveolar macrophages and small lymphocytes. No definitive microorganisms are observed. Moderate degenerative changes. [facility] Work Phone: BKR DX CODE Use Ordering [facility] Work Phone: Eosinophils Patterson stain Ql (Unsp spec) 0 % [facility] Work Phone: Lymphocytes/100 WBC (Bld) 57 % [facility] Work Phone: Neutrophils/100 WBC Manual cnt (Bronch spec) 11 % [facility] Work Phone: Pathologist review Jame (Unsp spec) [Interp] Leonardo Peralta MD [facility] Work Phone: [facility] Work Phone: BAL CONSULTon 09-03-2023 ALVEOLAR MACROPHAGES 33 % [facility] Bal comments Correlation with microbiology stains and cultures is recommended. Correlation with viral studies is recommended. [facility] Bal Diff Quik Stain Quality Check Acceptable [facility] BKR BAL INTERPRETATION Cellular specimen comprised of alveolar macrophages and small lymphocytes. No definitive microorganisms are observed. Rare degenerating cells with changes suggestive of viral cytopathic effect are noted. Moderate degenerative changes. [facility] BKR DX CODE Use Ordering [facility] Eosinophils Patterson stain Ql (Unsp spec) 0 % [facility] Lymphocytes/100 WBC (Bld) 49 % [facility] Neutrophils/100 WBC Manual cnt (Bronch spec) 18 % [facility] Pathologist review Jame (Unsp spec) [Interp] Leonardo Peralta MD [facility] BRONCHOSCOPYon 09-03-2023 LAB, [facility] CBC,PLATELETSon 09-03-2023 Erythrocyte distribution width (RBC) [Ratio] 13.4 % 10.9 - 14.3 % [facility] Hematocrit (Bld) [Volume fraction] 39.6 % 39.6 - 48.8 % [facility] Hemoglobin (Bld) [Mass/Vol] 12.8 g/dL Low 13.4 - 16.8 g/dL [facility] Interpretation and review of laboratory results Abnormal [facility] MCH (RBC) [Entitic mass] 27.8 pg 26.1 - 33.3 pg [facility] MCHC (RBC) [Mass/Vol] 32.3 g/dL 31.9 - 36.5 g/dL [facility] MCV (RBC) [Entitic vol] 85.9 fL 79.0 - 94.5 fL [facility] Platelet mean volume (Bld) [Entitic vol] 9.4 fL 8.7 - 12.3 fL [facility] Platelets (Bld) [#/Vol] 222 10*3/uL 146 - 337 K/uL [facility] RBC (Bld) [#/Vol] 4.61 10*6/uL [facility] WBC (Bld) [#/Vol] 4.36 10*3/uL 3.73 - 10. 10 [facility] CHEM 7 (LYTES,BUN,CREA,GLUC) on 09-03-2023 Anion gap [Moles/Vol] 12 mmol/L 7 - 17 mmol/L [facility] Chloride [Moles/Vol] 104 mmol/L 98 - 10 8 mmol/L [facility] CO2 [Moles/Vol] 24 mmol/L 21 - 31 mmol/L [facility] Creatinine [Mass/Vol] 1.20 mg/dL 0.70 - 1.30 mg/dL [facility] eGFR, CKD-EPI, Male 73 - PINF [facility] Glucose [Mass/Vol] 112 mg/dL High 70 - 99 mg/dL [facility] Osmolality Calc [Osmolality] 288 [facility] Potassium [Moles/Vol] 4.1 mmol/L 3.5 - 5.0 mmol/L [facility] Sodium [Moles/Vol] 136 mmol/L 135 - 145 mmol/L [facility] Urea nitrogen [Mass/Vol] 17 mg/dL 7 - 25 mg/dL [facility] Urea nitrogen/Creatinine [Mass ratio] 14 mg/mg [facility] CYTOLOGY, NON-GYNOrdered By: Sherice Jimenez on 09-03-2023 CYTOLOGIC DIAGNOSIS i5ydxNMoFGTpfOExVIAxY5 qnlaAvOPTqfUUyE7Udfkhs OJreEJ3oRP7egYnxoFRumH DxKNXfPhJxu2ahk497aUUd i5yxPKCJjhjafKu8e7zcOO XDjI7at9m3jR73UWPerN1p dGJsIDtccmVkMFxncmVlbj TqVfz0EIY1lXqkLlmklNI5 hTPmlYO7ZUsvn9AgcTtmsL jlLKR1DHZbAyqgJPzseFH5 dVOigNyugMLsVM9rv9znsA K5hqDqDDJ8oXomxKS5dTts wtleu3nwfNH5bBU0QCadsI A8WIpoBcEeJ7kvPLYqvL0l N38kA7tdSIPpiRwhWMebIE NlvMS9CCT0FUFhg7lrLLEx jAOvaNRyZaSvFIvlJpe8j2 swFQXrgJ41pDJiupZ6gEpb GGlizGR0CR59IRnkc7EvHK BwuNvgVZZdoV2vDrIfNBnp dmVsbmZjbjIzXGxldmVsam CnJMqouiJob6GsnlAbxDD6 ZCaxdpCapFP0gQkuPXIrQ1 E9I118ELrkagZundUpYvBd qls9IKYjbCfuyXitiOqfqv VsXGxldmVsbmZjMjNcbGV2 TVcdPcBhHmCrgIY6WScxGm RwgNV9QEabmLPpxYP9CLbv sXL2YEu7BXi2JFzqWAknAb s7zTodfPE9BZrloI6xCCPr J59hZzC7a8edcKM1pVV8AA wcwFV3WFepIxPvE7pxOLMq yX9xM58gW9soMACptQyaHN ofKDLkrKV8KFC9YAPek8ff ZXZlbHRleHRcJzAxXCdiNz j8j1klKEVtnD26jFDvcnG8 mUddMY96DPtpj4BvUGSruJ bnXJChzT1yOhHcRKvdssZo bmZjbjIzXGxldmVsamMwXG ogkdAsr6RgznDoeOE9AVmg loSbmXQ0nWmuVAJfF3F2P3 64SKdppfOjhfMiJjXtcvm7 XGYxfXtcbGlzdGxldmVsXG dhcyQiogLvHtKugDE3PKaq MjGaIvBloJM8ZXzhRqZpyU H5GBhabJWrrXB2EQmlfJR9 WZt2AEi0XJepGVihWei8zX cwjHM8THsnqC0hKGNjN78y XzL4m1oufRH5vUA2BJotwS U6DRqtHtMnU7mqOBXcaJ9n S85lP9odVUPceGukNDebYE QliYD3IME6RWGlh6ejFDKy zSVliRTuKyElHVzuXox3n5 tuJAAzmM84oEQuuuP1qTjm BP54KZnoz4VkVHEjuJbuQR OgzR7vXpNqEUxzvyZewlYu bjIzXGxldmVsamMwXGxldm Oec0KjgdBfoTL9TCjlsgPk bAW6vPxrQHHmM9Y9I378IU byzfOooiEaGqZpnsf7BVLx fXtcbGlzdGxldmVsXGxldm NfpnKpKcGurLO0UFaiCtSu HfGxaLE9ZVikZoTleFH7JT imzYPmbDL9QKqkwKQ2HEa7 VXa1TGlfOEiiBlw2xCrypK O1QOivvT8yRUUyE56kYtJ8 vT78LIhlwOvhcG10GLBokO IbyCEacPG2QYnyqUhifJ15 JENctQXhDGafq1RwGEIwZf W2GVQ1DAYhgXpaoV98PGIk iGZyT144xmMhZRxwNN67JR BhcGVydzEyMjQwXHBhcGVy tAU2TDFpPS9zwzukYOxaNR ekUCHeveP2LFZhnRDgM0Yl EPXeXS2qcjgkHVE7ZMcjPW VrRLA2WlRxWJCyr0Hfoqk6 YbGxfMz3o8okIECdMCShyA ogb9suDTA6RFLfaIQvT7jy fX9pVSBmZV0zkjzev5lbEV qiSAixYRNioCC9wsQ4GVSm yFJqA7TufP2eWCYoEVPobm InwGqsiG1qIrcadtPvBMLe YGBVWfAJXi7HV8cQWYuXZR 9MQVIgTEFWQUdFLCBMRUZU JWkVK1FFXRxJPuJuGJZlGK FbO1tZT9dIO8qzOyinMnDc IWklDTTpOyVjK5QnEZKgqz oqUEWyDQIAJG7LTVCTRFWZ Tx3LHWC0QCHmvwcjzWM4JZ gjelOndDs9qJYfzPdsfC9c YlxmczIyXGNmMSBObyBNYW wxW06tmuVsM4DyeDOdDXZi TTecIM80hUWvTAEyuKZuMW t6cG8kFNjllNujikBEvGFx hO4zmkaoDTqsAbNofVVnRX xpMFxsczBccGFyfQ== [facility] Work Phone: Case Report [facility] Work Phone: Clinical History s4cwgLQsSPRonOAfQGPl M1 vnsmWtJMQwgSKiO3Shcwgr ACpnTT5yHA5vuLydwTOmgR NwYMIzQnShq9mot113pYGp z7lqGCPHnqvzjDm9tHotQ3 9al6A6AosiK6vjJLExTAjw QAMiNMtjgEKgNTe7YGSfrY VydzEyMjQwXHBhcGVyaDE1 ZYLjTL9oxsetQOruUHzhLW IjcjI4UQFkdYAlJ7GiGRKh WP0lnsimFQI7WVegUDMrOO Q8HzFpMOQrp5Aurxx6IeVy gTg7f6wyEBIkEYFdiEzse4 ecLWW5FNJcfTIjC9ymtO3w SLKbQN3wmebna4oeADnuLW ulQTXqnXY6yiF4ZKKfuSFk Q7QurJ1hUNEjHIOhozAkbC eigG1dOhDyVKkzQiSqXiGc TUxyfMYpizQjkXKbuO4lAQ Bhcn0= [facility] Work Phone: For Immediate Release to Patient's MyChart? Yes Yes [facility] Work Phone: Gross Description b1qceMFiCKCstYZvAXBx M1 vurmHsVIPdfOBlL0Wwcqle DIsvWN3lVO4nsSgcdPMrgY ImVHYsTtJwv0awm952zFMe x2qyHECUerfixPv0cUonY1 8fk1I9VfrcS22urWZgBBM9 PIYuACFnmIGeMQEgHOU1PE JddRVoX2ijWKLiBN2hqeey XWklFHghSPUoeUW4HNDvrY CcO7MzDTNwDQrjGXJmmcp3 ZgIiOd4kiCTltTykEPofKL JkXHBsYWluXGZzMjAgTExM IEJBTFxwYXIgMSBtbCBoYX u7PFPidM5jtLCrjjNoyQOi pR5joZviLGmqHKNjONBMDZ IgyUdzUMLAWUEse4BorU5l cGFyXHBhcmRccGFyXHBhcn 0= [facility] Work Phone: [facility] Work Phone: HEPATIC FUNCTION PANELon Albumin [Mass/Vol] 3.2 g/dL Low 3.5 - 5.0 g/dL [facility] ALP [Catalytic activity/Vol] 118 U/L 32 - 126 U/L [facility] ALT [Catalytic activity/Vol] 25 U/L 10 - 52 U/L [facility] AST [Catalytic activity/Vol] 32 U/L 10 - 39 U/L [facility] Bilirubin [Mass/Vol] 1.0 mg/dL NINF - 1.5 mg/dL [facility] Bilirubin.direct [Mass/Vol] 0.3 mg/dL High NINF - 0.3 mg/dL [facility] Protein [Mass/Vol] 6.5 g/dL 6.4 - 8.3 g/dL [facility] HISTOPLASMA AND BLASTOMYCES ANTIGEN, ENZYME IMMUNOASSAY, SERMon 09-03-2023 Histoplasma/Blastomyce s Ag Result Detected Critically abnormal Not Detected [facility] Histoplasma/Blastomyce s Ag Value 5.3 ng/mL [facility] Interpretation and review of laboratory results Abnormal [facility] MAGNESIUMon 09-03-2023 Interpretation and review of laboratory results Normal [facility] Magnesium [Mass/Vol] 1.6 mg/dL 1.6 - 2 .6 mg/dL [facility] No Panel Informationon 09-03 Interpretation and review of laboratory results Abnormal [facility] PARVOVIRUS (B19) DNA, PCR, [place] Burden 09-03-2023 PARVOVIRUS B19 BY RAPID PCR Not detected Not Detected [facility] RI SPEC SOURCE Whole Blood [facility] Portable XR Chest Viewson RADIOLOGY RADIOLOGY [facility] Radiology Study observation (narrative) [facility] Portable XR Chest ViewsOrder ed By: Lester [place] on 09-03-2023 [facility] Work Phone: ASPERGILLUS (GALACTOMANNAN), ANTIGENon 09-02-2023 Galactomannan Ag IA Qn <0.500 NINF OS [facility] ATYPICAL BACTERIAL PNEUMONIA ,PCROrdered By: Shari Contreras on 09-02-2023 B. parapertussis DNA ESTELITA+probe Ql (Unsp spec) Not detected Not Detected [facility] B. pertussis DNA ESTELITA+probe Ql (Unsp spec) Not detected Not Detected [facility] C. pneumoniae DNA ESTELITA+probe Ql (Unsp spec) Not detected Not Detected [facility] Interpretation and review of laboratory results Normal [facility] M. pneumoniae DNA ESTELITA+probe Ql (Unsp spec) Not detected Not Detected [facility] BRONCHOSCOPYon 09-02-2023 Radiology Study observation (narrative) [facility] Bacteria identified Cx Nom ( Bld)on 09-02-2023 Bacteria identified Cx Nom (Unsp spec) NO GROWTH DAY 5 OF 5 [facility] CBC,PLATELETSon 09-02-2023 Erythrocyte distribution width (RBC) [Ratio] 13.2 % 10.9 - 14.3 % [facility] Hematocrit (Bld) [Volume fraction] 39.9 % 39.6 - 48.8 % [facility] Hemoglobin (Bld) [Mass/Vol] 12.9 g/dL Low 13.4 - 16.8 g/dL [facility] Interpretation and review of laboratory results Abnormal [facility] MCH (RBC) [Entitic mass] 27.9 pg 26.1 - 33.3 pg [facility] MCHC (RBC) [Mass/Vol] 32.3 g/dL 31.9 - 36.5 g/dL [facility] MCV (RBC) [Entitic vol] 86.4 fL 79.0 - 94.5 fL [facility] Platelet mean volume (Bld) [Entitic vol] 9.5 fL 8.7 - 12.3 fL [facility] Platelets (Bld) [#/Vol] 210 10*3/uL 146 - 337 K/uL [facility] RBC (Bld) [#/Vol] 4.62 10*6/uL [facility] WBC (Bld) [#/Vol] 4.12 10*3/uL 3.73 - 10. 10 K/uL [facility] CHEM 7 (LYTES,BUN,CREA,GLUC) on 09-02-2023 Anion gap [Moles/Vol] 13 mmol/L 7 - 17 mmol/L [facility] Chloride [Moles/Vol] 105 mmol/L 98 - 10 8 mmol/L [facility] CO2 [Moles/Vol] 22 mmol/L 21 - 31 mmol/L [facility] Creatinine [Mass/Vol] 1.25 mg/dL 0.70 - 1.30 mg/dL [facility] eGFR, CKD-EPI, Male 70 - PINF [facility] Glucose [Mass/Vol] 105 mg/dL High 70 - 99 mg/dL [facility] Osmolality Cal[facility] [[facility]olality] 287 [facility] [Moles/Vol] 4.3 mmol/L 3.5 - 5.0 mmol/L [facility] Sodium [Moles/Vol] 136 mmol/L 135 - 145 mmol/L [facility] Urea nitrogen [Mass/Vol] 16 mg/dL 7 - 25 mg/dL [facility] Urea nitrogen/Creatinine [Mass ratio] 13 mg/mg [facility] HEPATIC FUNCTION PANELon Albumin [Mass/Vol] 3.2 g/dL Low 3.5 - 5.0 g/dL [facility] ALP [Catalytic activity/Vol] 107 U/L 32 - 126 U/L [facility] ALT [Catalytic activity/Vol] 20 U/L 10 - 52 U/L [facility] AST [Catalytic activity/Vol] 31 U/L 10 - 39 U/L [facility] Bilirubin [Mass/Vol] 1.0 mg/dL NINF - 1.5 mg/dL [facility] Bilirubin.direct [Mass/Vol] 0.3 mg/dL High NINF - 0.3 mg/dL [facility] Protein [Mass/Vol] 6.6 g/dL 6.4 - 8.3 g/dL [facility] HISTOPLASMA ANTIGEN,URINEon 09-02-2023 H. capsulatum Ag (U) [Mass/Vol] Not detected ng/mL [facility] H. capsulatum Ag IA Ql (U) Not detected Not Detected [facility] HIV 1 AND 2 ANTIBODIES/P24 A NTIGENOrdered By: Wilma Luque on 09-02-2023 HIV 1+2 Ab+HIV1 p24 Ag IA Ql Non-Reactive Non Reactive [facility] Interpretation and review of laboratory results Normal [facility] MAGNESIUMon 09-02-2023 Interpretation and review of laboratory results Normal [facility] Magnesium [Mass/Vol] 1.7 mg/dL 1.6 - 2 .6 mg/dL [facility] No Panel Informationon 09-02 Interpretation and review of laboratory results Abnormal [facility] TACROLIMUS LEVEL, TROUGH (RI E DRUG LEVEL)on 09-02-2023 Interpretation and review of laboratory results Normal [facility] Tacrolimus (Bld) [Mass/Vol] 4.2 ng/mL [facility] CBC,PLATELETSon 09-01-2023 Erythrocyte distribution width (RBC) [Ratio] 13.4 % 10.9 - 14.3 % [facility] Hematocrit (Bld) [Volume fraction] 38.9 % Low 39.6 - 48.8 % [facility] Hemoglobin (Bld) [Mass/Vol] 12.7 g/dL Low 13.4 - 16.8 g/dL [facility] Interpretation and review of laboratory results Abnormal [facility] MCH (RBC) [Entitic mass] 27.6 pg 26.1 - 33.3 pg [facility] MCHC (RBC) [Mass/Vol] 32.6 g/dL 31.9 - 36.5 g/dL [facility] MCV (RBC) [Entitic vol] 84.6 fL 79.0 - 94.5 fL [facility] Platelet mean volume (Bld) [Entitic vol] 9.4 fL 8.7 - 12.3 fL [facility] Platelets (Bld) [#/Vol] 209 10*3/uL 146 - 337 K/uL [facility] RBC (Bld) [#/Vol] 4.60 10*6/uL [facility] WBC (Bld) [#/Vol] 4.41 10*3/uL 3.73 - 10. 10 K/uL [facility] CHEM 7 (LYTES,BUN,CREA,GLUC) on 09-01-2023 Anion gap [Moles/Vol] 14 mmol/L 7 - 17 mmol/L [facility] Chloride [Moles/Vol] 103 mmol/L 98 - 10 8 mmol/L [facility] CO2 [Moles/Vol] 21 mmol/L 21 - 31 mmol/L [facility] Creatinine [Mass/Vol] 1.16 mg/dL 0.70 - 1.30 mg/dL [facility] eGFR, CKD-EPI, Male 76 - PINF [facility] Glucose [Mass/Vol] 117 mg/dL High 70 - 99 mg/dL [facility] Osmolality Calc [Osmolality] 285 [facility] Potassium [Moles/Vol] 4.2 mmol/L 3.5 - 5.0 mmol/L [facility] Sodium [Moles/Vol] 134 mmol/L Low 135 - 145 mmol/L [facility] Urea nitrogen [Mass/Vol] 18 mg/dL 7 - 25 mg/dL [facility] Urea nitrogen/Creatinine [Mass ratio] 16 mg/mg [facility] CRYPTOCOCCAL ANTIGENon 09-01 Cryptococcus sp Ag Ql (S) Negative Negative [facility] Interpretation and review of laboratory results Normal [facility] HEPATIC FUNCTION PANELon Albumin [Mass/Vol] 3.3 g/dL Low 3.5 - 5.0 g/dL [facility] ALP [Catalytic activity/Vol] 112 U/L 32 - 126 U/L [facility] ALT [Catalytic activity/Vol] 21 U/L 10 - 52 U/L [facility] AST [Catalytic activity/Vol] 29 U/L 10 - 39 U/L [facility] Bilirubin [Mass/Vol] 1.0 mg/dL NINF - 1.5 mg/dL [facility] Bilirubin.direct [Mass/Vol] 0.2 mg/dL NINF - 0.3 mg/dL [facility] Protein [Mass/Vol] 6.8 g/dL 6.4 - 8.3 g/dL [facility] L. pneumophila 1 Ag IA Ql (U )Ordered By: Carolin Miles on 09-01-2023 Interpretation and review of laboratory results Normal [facility] LEGIONELLA URINARY AGOrdered By: Carolin Miles on 09-01-2023 L. pneumophila 1 Ag IA Ql (U) Negative Negative [facility] MAGNESIUMon 09-01-2023 Interpretation and review of laboratory results Normal [facility] Magnesium [Mass/Vol] 1.6 mg/dL 1.6 - 2 .6 mg/dL [facility] No Panel Informationon 09-01 Interpretation and review of laboratory results Abnormal [facility] CBC,PLATELETSon 08-31-2023 Erythrocyte distribution width (RBC) [Ratio] 13.3 % 10.9 - 14.3 % [facility] Hematocrit (Bld) [Volume fraction] 39.4 % Low 39.6 - 48.8 % [facility] Hemoglobin (Bld) [Mass/Vol] 12.8 g/dL Low 13.4 - 16.8 g/dL [facility] Interpretation and review of laboratory results Abnormal [facility] MCH (RBC) [Entitic mass] 27.6 pg 26.1 - 33.3 pg [facility] MCHC (RBC) [Mass/Vol] 32.5 g/dL 31.9 - 36.5 g/dL [facility] MCV (RBC) [Entitic vol] 85.1 fL 79.0 - 94.5 fL [facility] Platelet mean volume (Bld) [Entitic vol] 9.6 fL 8.7 - 12.3 fL [facility] Platelets (Bld) [#/Vol] 228 10*3/uL 146 - 337 K/uL [facility] RBC (Bld) [#/Vol] 4.63 10*6/uL [facility] (Bld) [#/Vol] 4.77 10*3/uL 3.73 - 10. 10 K/uL [facility]M 7 (LYTES,BUN,CREA,GLUC) on 08-31-2023 Anion gap [Moles/Vol] 13 mmol/L 7 - 17 mmol/L [facility] Chloride [Moles/Vol] 102 mmol/L 98 - 10 8 mmol/L [facility] CO2 [Moles/Vol] 23 mmol/L 21 - 31 mmol/L [facility] Creatinine [Mass/Vol] 1.37 mg/dL High 0.70 - 1.30 mg/dL [facility] eGFR, CKD-EPI, Male 62 - PINF [facility] Glucose [Mass/Vol] 112 mg/dL High 70 - 99 mg/dL [facility] Osmolality Calc [Osmolality] 284 [facility] Potassium [Moles/Vol] 4.4 mmol/L 3.5 - 5.0 mmol/L [facility] Sodium [Moles/Vol] 134 mmol/L Low 135 - 145 mmol/L [facility] Urea nitrogen [Mass/Vol] 16 mg/dL 7 - 25 mg/dL [facility] Urea nitrogen/Creatinine [Mass ratio] 12 mg/[facility] Abdomen and Pelvis WO con traston 08-31-2023 RADIOLOGY RADIOLOGY [facility] Radiology Study observation (narrative) [facility] CT Abdomen and Pelvis WO con trastOrdered By: Chavez Larkin on 08-31-2023 [facility] Work Phone: CT Chest WO contraston 08-31 RADIOLOGY RADIOLOGY [facility] Radiology Study observation (narrative) [facility] CT Chest WO contrastOrdered By: Daisha Patterson on 08-31-2023 [facility] Work Phone: FERRITINon 08-31-2023 Ferritin [Mass/Vol] 409.0 ng/mL High 10.5 - 3 07.3 ng/mL [facility] Interpretation and review of laboratory results Abnormal [facility] HEPATIC FUNCTION PANELon Albumin [Mass/Vol] 3.3 g/dL Low 3.5 - 5.0 g/dL [facility] ALP [Catalytic activity/Vol] 113 U/L 32 - 126 U/L [facility] ALT [Catalytic activity/Vol] 25 U/L 10 - 52 U/L [facility] AST [Catalytic activity/Vol] 31 U/L 10 - 39 U/L [facility] Bilirubin [Mass/Vol] 1.1 mg/dL NINF - 1.5 mg/dL [facility] Bilirubin.direct [Mass/Vol] 0.3 mg/dL High NINF - 0.3 mg/dL [facility] Protein [Mass/Vol] 7.0 g/dL 6.4 - 8.3 g/dL [facility] MAGNESIUMon 08-31-2023 Interpretation and review of laboratory results Normal [facility] Magnesium [Mass/Vol] 1.7 mg/dL 1.6 - 2 .6 mg/dL [facility] No Panel Informationon 08-31 Interpretation and review of laboratory results Abnormal [facility] PROCALCITONINon 08-31-2023 Interpretation and review of laboratory results Normal [facility] Procalcitonin [Mass/Vol] 0.23 ng/mL NINF - 0.50 ng/mL [facility] TACROLIMUS LEVEL, TROUGH (RI E DRUG LEVEL)Ordered By: Yanira Marcum on 08-31-2023 Interpretation and review of laboratory results Normal [facility] Tacrolimus (Bld) [Mass/Vol] 5.9 ng/mL [facility] URINE CULTUREOrdered By: Jorge Lozano on 08-31-2023 Bacteria identified Cx Nom (Unsp spec) No Growth [facility] DARYL AURIS SCREEN BY PCRO rdered By: Mynor Alejandro on 08-30-2023 Daryl auris Screen by PCR Not detected Not Detected [facility] Interpretation and review of laboratory results Normal [facility] CBC,PLATELETSon 08-30-2023 Erythrocyte distribution width (RBC) [Ratio] 13.3 % 10.9 - 14.3 % [facility] Hematocrit (Bld) [Volume fraction] 41.3 % 39.6 - 48.8 % [facility] Hemoglobin (Bld) [Mass/Vol] 13.2 g/dL Low 13.4 - 16.8 g/dL [facility] Interpretation and review of laboratory results Abnormal [facility] MCH (RBC) [Entitic mass] 27.3 pg 26.1 - 33.3 pg [facility] MCHC (RBC) [Mass/Vol] 32.0 g/dL 31.9 - 36.5 g/dL [facility] MCV (RBC) [Entitic vol] 85.5 fL 79.0 - 94.5 fL [facility] Platelet mean volume (Bld) [Entitic vol] 9.2 fL 8.7 - 12.3 fL [facility] Platelets (Bld) [#/Vol] 235 10*3/uL 146 - 337 K/uL [facility] RBC (Bld) [#/Vol] 4.83 10*6/uL [facility] WBC (Bld) [#/Vol] 4.96 10*3/uL 3.73 - 10. 10 K/uL [facility] CHEM 7 (LYTES,BUN,CREA,GLUC) on 08-30-2023 Anion gap [Moles/Vol] 14 mmol/L 7 - 17 mmol/L [facility] Chloride [Moles/Vol] 102 mmol/L 98 - 10 8 mmol/L [facility] CO2 [Moles/Vol] 20 mmol/L Low 21 - 31 mmol/L [facility] Creatinine [Mass/Vol] 1.56 mg/dL High 0.70 - 1.30 mg/dL [facility] eGFR, CKD-EPI, Male 54 Low - PINF [facility] Glucose [Mass/Vol] 123 mg/dL High 70 - 99 mg/dL [facility] Osmolality Calc [Osmolality] 281 [facility] Potassium [Moles/Vol] 4.3 mmol/L 3.5 - 5.0 mmol/L [facility] Sodium [Moles/Vol] 132 mmol/L Low 135 - 145 mmol/L [facility] Urea nitrogen [Mass/Vol] 16 mg/dL 7 - 25 mg/dL [facility] Urea nitrogen/Creatinine [Mass ratio] 10 mg/mg [facility] EXTRA MICROon 08-30-2023 [facility] HEPATIC FUNCTION PANELon Albumin [Mass/Vol] 3.7 g/dL 3.5 - 5.0 g/dL [facility] ALP [Catalytic activity/Vol] 115 U/L 32 - 126 U/L [facility] ALT [Catalytic activity/Vol] 22 U/L 10 - 52 U/L [facility] AST [Catalytic activity/Vol] 34 U/L 10 - 39 U/L [facility] Bilirubin [Mass/Vol] 1.2 mg/dL NINF - 1.5 mg/dL [facility] Bilirubin.direct [Mass/Vol] 0.3 mg/dL High NINF - 0.3 mg/dL [facility] Protein [Mass/Vol] 7.7 g/dL 6.4 - 8.3 g/dL [facility] MAGNESIUMon 08-30-2023 Interpretation and review of laboratory results Normal [facility] Magnesium [Mass/Vol] 1.8 mg/dL 1.6 - 2 .6 mg/dL [facility] No Panel Informationon 08-30 Interpretation and review of laboratory results Abnormal [facility] CBC,PLATELETSon 08-29-2023 Erythrocyte distribution width (RBC) [Ratio] 13.4 % 10.9 - 14.3 % [facility] Hematocrit (Bld) [Volume fraction] 37.6 % Low 39.6 - 48.8 % [facility] Hemoglobin (Bld) [Mass/Vol] 12.2 g/dL Low 13.4 - 16.8 g/dL [facility] Interpretation and review of laboratory results Abnormal [facility] MCH (RBC) [Entitic mass] 27.6 pg 26.1 - 33.3 pg [facility] MCHC (RBC) [Mass/Vol] 32.4 g/dL 31.9 - 36.5 g/dL [facility] MCV (RBC) [Entitic vol] 85.1 fL 79.0 - 94.5 fL [facility] Platelet mean volume (Bld) [Entitic vol] 9.4 fL 8.7 - 12.3 fL [facility] Platelets (Bld) [#/Vol] 233 10*3/uL 146 - 337 K/uL [facility] RBC (Bld) [#/Vol] 4.42 10*6/uL [facility] WBC (Bld) [#/Vol] 4.92 10*3/uL 3.73 - 10. 10 K/uL [facility] CHEM 7 (LYTES,BUN,CREA,GLUC) on 08-29-2023 Anion gap [Moles/Vol] 13 mmol/L 7 - 17 mmol/L [facility] Chloride [Moles/Vol] 105 mmol/L 98 - 10 8 mmol/L [facility] CO2 [Moles/Vol] 20 mmol/L Low 21 - 31 mmol/L [facility] Creatinine [Mass/Vol] 1.55 mg/dL High 0.70 - 1.30 mg/dL [facility] eGFR, CKD-EPI, Male 55 Low - PINF [facility] Glucose [Mass/Vol] 108 mg/dL High 70 - 99 mg/dL [facility] Osmolality Calc [Osmolality] 283 [facility] Potassium [Moles/Vol] 4.5 mmol/L 3.5 - 5.0 mmol/L [facility] Sodium [Moles/Vol] 133 mmol/L Low 135 - 145 mmol/L [facility] Urea nitrogen [Mass/Vol] 19 mg/dL 7 - 25 mg/dL [facility] Urea nitrogen/Creatinine [Mass ratio] 12 mg/mg [facility] GGTon 08-29-2023 Gamma glutamyl transferase [Catalytic activity/Vol] 64 U/L 8 - 64 U/L [facility] Interpretation and review of laboratory results Normal [facility] HEPATIC FUNCTION PANELon Albumin [Mass/Vol] 3.3 g/dL Low 3.5 - 5.0 g/dL [facility] ALP [Catalytic activity/Vol] 103 U/L 32 - 126 U/L [facility] ALT [Catalytic activity/Vol] 18 U/L 10 - 52 U/L [facility] AST [Catalytic activity/Vol] 27 U/L 10 - 39 U/L [facility] Bilirubin [Mass/Vol] 1.1 mg/dL NINF - 1.5 mg/dL [facility] Bilirubin.direct [Mass/Vol] 0.3 mg/dL High NINF - 0.3 mg/dL [facility] Protein [Mass/Vol] 6.8 g/dL 6.4 - 8.3 g/dL [facility] MAGNESIUMon 08-29-2023 Interpretation and review of laboratory results Normal [facility] Magnesium [Mass/Vol] 1.7 mg/dL 1.6 - 2 .6 mg/dL [facility] No Panel Informationon 08-29 Interpretation and review of laboratory results Abnormal [facility] PT,INR,PTTon 08-29-2023 aPTT Coag (PPP) [Time] 29.3 s [facility] INR Coag (Bld) [Relative time] 1.1 {INR} 0.9 - 1.1 [facility] Interpretation and review of laboratory results Normal [facility] PT Coag (PPP) [Time] 13.8 s [facility] Viewson RADIOLOGY RADIOLOGY [facility] Portable XR Chest ViewsOrder ed By: Gerald Baer on 08-29-2023 [facility] Work Phone: TACROLIMUS LEVEL, TROUGH (RI E DRUG LEVEL)on 08-29-2023 Interpretation and review of laboratory results Normal [facility] Tacrolimus (Bld) [Mass/Vol] 8.9 ng/[facility]CR[facility]EL, TROUGH (RI E DRUG LEVEL)Ordered By: Roxanne Louie on 08-29-2023 Interpretation and review of laboratory results Normal [facility] Tacrolimus (Bld) [Mass/Vol] 8.7 ng/mL [facility] URINALYSIS REFLEX TO CULTURE PERFORMABLEOrdered By: Shaji Kelly on 08-29-2023 Appearance (U) Clear Clear [facility] Bacteria LM Ql (Urine sed) ABSENT ABSENT [facility] Calcium Oxalate Crystals PRESENT [facility] Color (U) Yellow Yellow [facility] Epithelial cells.squamous LM Ql (Urine sed) 0-2/hpf 0-2/hpf, 3-5/hpf = 1+ [facility] Glucose Test strip (U) [Mass/Vol] Negative Negative [facility] Interpretation and review of laboratory results Abnormal [facility] Ketones (U) [Mass/Vol] Negative Negative [facility] Leukocyte esterase Test strip Ql (U) Negative Negative [facility] Nitrite Ql (U) Negative Negative [facility] pH (U) 6.0 [pH] 5.0 - 7.0 [facility] Protein (U) [Mass/Vol] Negative Negative [facility] RBC (U) [#/Vol] Trace Abnormal Negative U [facility] RBC LM.HPF (Urine sed) [#/Area] 3-5 Abnormal [facility] Specific gravity (U) [Rel density] 1.015 1.001 - 1.035 [facility] Urobilinogen (U) [Mass/Vol] 1.0 E.U./dL 0.2 E.U/dL, 1.0 E.U/dL [facility] WBC LM.HPF (Urine sed) [#/Area] 0 - 5 [facility] US for transplanted kidney l imitedon 08-29-2023 RADIOLOGY RADIOLOGY [facility] Radiology Study observation (narrative) [facility] US for transplanted kidney l imitedOrdered By: Romana Matias on 08-29-2023 [facility] Work Phone: CBC AND ELECTRONIC DIFFon Basophils (Bld) [#/Vol] K/uL 0.00 - 0.09 K/uL [facility] Basophils/100 WBC (Bld) 0.6 % [facility] Differential cell count method Nom (Bld) Electronic Differential [facility] Eosinophils (Bld) [#/Vol] 0.10 10*3/uL 0.00 - 0.48 K/uL [facility] Eosinophils/100 WBC (Bld) 2.1 % [facility] Erythrocyte distribution width (RBC) [Ratio] 13.4 % 10.9 - 14.3 % [facility] Hematocrit (Bld) [Volume fraction] 37.9 % Low 39.6 - 48.8 % [facility] Hemoglobin (Bld) [Mass/Vol] 12.4 g/dL Low 13.4 - 16.8 g/dL [facility] Immature granulocytes (Bld) [#/Vol] K/uL NINF - 0.07 K/uL [facility] Immature granulocytes/100 WBC (Bld) 0.6 % [facility] Interpretation and review of laboratory results Abnormal [facility] Lymphocytes (Bld) [#/Vol] 1.76 10*3/uL 0.83 - 3.57 K/uL [facility] Lymphocytes/100 WBC (Bld) 37.1 % [facility] MCH (RBC) [Entitic mass] 27.8 pg 26.1 - 33.3 pg [facility] MCHC (RBC) [Mass/Vol] 32.7 g/dL 31.9 - 36.5 g/dL [facility] MCV (RBC) [Entitic vol] 85.0 fL 79.0 - 94.5 fL [facility] Monocytes (Bld) [#/Vol] 0.66 10*3/uL 0.24 - 0.93 K/uL [facility] Monocytes/100 WBC (Bld) 13.9 % [facility] Neutrophils (Bld) [#/Vol] 2.16 10*3/uL 1.57 - 6.19 K/uL [facility] Nucleated RBC/100 WBC (Bld) [Ratio] 0.0 % [facility] Platelet mean volume (Bld) [Entitic vol] 9.3 fL 8.7 - 12.3 fL [facility] Platelets (Bld) [#/Vol] 262 10*3/uL 146 - 337 K/uL [facility] RBC (Bld) [#/Vol] 4.46 10*6/uL [facility] Segmented neutrophils/100 WBC (Bld) 45.7 % [facility] WBC (Bld) [#/Vol] 4.74 10*3/uL 3.73 - 10. 10 K/uL [facility] CHEM 6 (LYTES, BUN CREA)on 0 08-28-2023 Anion gap [Moles/Vol] 13 mmol/L 7 - 17 mmol/L [facility] Chloride [Moles/Vol] 103 mmol/L 98 - 10 8 mmol/L [facility] CO2 [Moles/Vol] 22 mmol/L 21 - 31 mmol/L [facility] Creatinine [Mass/Vol] 1.62 mg/dL High 0.70 - 1.30 mg/dL [facility] eGFR, CKD-EPI, Male 52 Low - PINF [facility] Interpretation and review of laboratory results Abnormal [facility] Potassium [Moles/Vol] 4.3 mmol/L 3.5 - 5.0 mmol/L [facility] Sodium [Moles/Vol] 134 mmol/L Low 135 - 145 mmol/L [facility] Urea nitrogen [Mass/Vol] 22 mg/dL 7 - 25 mg/dL [facility] Urea nitrogen/Creatinine [Mass ratio] 14 mg/mg [facility] Portable XR Chest Viewson Radiology Study observation (narrative) [facility] Respiratory virus DNA+RNA NA A+probe Nom (Unsp spec)Ordered By: Dayami Harris on 08-28-2023 Adenovirus DNA ESTELITA+probe Nom (Unsp spec) Not detected Not Detected [facility] B. parapertussis DNA ESTELITA+probe Ql (Unsp spec) Not detected Not Detected [facility] B. pertussis DNA ESTELITA+probe Ql (Unsp spec) Not detected Not Detected [facility] C. pneumoniae DNA ESTELITA+probe Ql (Unsp spec) Not detected Not Detected [facility] FLUAV RNA ESTELITA+probe Ql (Unsp spec) Not detected Not Detected [facility] FLUBV RNA ESTELITA+probe Ql (Unsp spec) Not detected Not Detected [facility] HCoV 229E RNA ESTELITA+non-probe Ql (Nph) Not detected Not Detected [facility] HCoV HKU1 RNA ESTELITA+non-probe Ql (Nph) Not detected Not Detected [facility] HCoV NL63 RNA ESTELITA+non-probe Ql (Nph) Not detected Not Detected [facility] HCoV OC43 RNA ESTELITA+non-probe Ql (Nph) Not detected Not Detected [facility] hMPV A RNA ESTELITA+probe Ql (Unsp spec) Not detected Not Detected [facility] Interpretation and review of laboratory results Normal [facility] M. pneumoniae DNA ESTELITA+probe Ql (Unsp spec) Not detected Not Detected [facility] Parainfluenza virus 1 RNA ESTELITA+probe Ql (Unsp spec) Not detected Not Detected [facility] Parainfluenza virus 2 RNA ESTELITA+probe Ql (Unsp spec) Not detected Not Detected [facility] Parainfluenza virus 3 RNA ESTELITA+probe Ql (Unsp spec) Not detected Not Detected [facility] Parainfluenza virus 4 RNA ESTELITA+probe Ql (Unsp spec) Not detected Not Detected [facility] Rhinovirus+Enterovirus RNA ESTELITA+probe Ql (Unsp spec) Not detected Not Detected [facility] RSV RNA ESTELITA+probe Ql (Unsp spec) Not detected Not Detected [facility] SARS-CoV-2 (COVID-19) RNA ESTELITA+probe Ql (Unsp spec) Not detected NOT DETECTED [facility] ALBUMINon 04-28-2023 Albumin [Mass/Vol] 4.0 g/dL Normal 3.4-5.0 [facility] Comment on above: Performed By: #### C MP #### [facility] [address] [place] [address] Dr. Dwight Waters ALKALINE PHOSPHAon ALP [Catalytic activity/Vol] 106 U/L Normal 46-116 [facility] Comment on above: Performed By: #### F [id number] #### [facility] [address] [place] [address] Dr. Dwight Waters BILIRUBIN CONJUGATED (DIRECT )on 04-28-2023 BILI, CONJUGATED 0.3 mg/dL Critically high 0.0-0.2 [facility] Comment on above: Performed By: #### C MP #### [facility] [address] [place] [address] Dr. Dwight Waters BILIRUBIN TOTALon 04-28-2023 Bilirubin [Mass/Vol] 1.4 mg/dL Critically high 0.2-1.0 [facility] Comment on above: Performed By: #### C MP #### [facility] [address] [place] [address] Dr. Dwight Waters BUNon 04-28-2023 Urea nitrogen [Mass/Vol] 12.0 mg/dL Normal 7.0-18.0 [facility] Comment on above: Performed By: #### U RTPCR #### [facility] [address] [place] [address] Dr. Dwight Waters CALCIUMon 04-28-2023 Calcium [Mass/Vol] 9.3 mg/dL Normal 8.5-10.1 [facility] Comment on above: Performed By: #### U RTPCR #### [facility] [address] [place] [address] Dr. Dwight Waters CBC AUTO DIFFon 04-28-2023 BASO # 0.1 103/ul Normal 0.0-0.1 [facility] Comment on above: Performed By: #### C BC #### [facility] [address] [place] [address] Dr. Dwight Waters Basophils/100 WBC (Bld) 0.9 % Normal 0.2-2.0 [facility] Comment on above: Performed By: #### C BC #### [facility] [address] [place] [address] Dr. Dwight Waters EO # 0.2 103/ul Normal 0.0-0.7 [facility] Comment on above: Performed By: #### C BC #### [facility] [address] [place] [address] Dr. Dwight Waters Eosinophils/100 WBC (Bld) 3.8 % Normal 0.9-7.0 [facility] Comment on above: Performed By: #### C BC #### [facility] [address] [place] [address] Dr. Dwight Waters Erythrocyte distribution width (RBC) [Ratio] 12.5 % Normal 11.0-15.0 [facility] Comment on above: Performed By: #### C BC #### [facility] [address] [place] [address] Dr. Dwight Waters Hematocrit (Bld) [Volume fraction] 49.8 % Normal 42.0-54.0 [facility] Comment on above: Performed By: #### C BC #### [facility] [address] [place] [address] Dr. Dwight Waters Hemoglobin (Bld) [Mass/Vol] 16.4 g/dL Normal 14.0-18.0 [facility] Comment on above: Performed By: #### C BC #### [facility] [address] [place] [address] Dr. Dwight Waters IG # 0.01 10e3/ul Normal 0.00-0.03 [facility] Comment on above: Performed By: #### C BC #### [facility] [address] [place] [address] Dr. Dwight Waters IG % 0.2 % Normal 0.0-0.5 [facility] Comment on above: Performed By: #### C BC #### [facility] [address] [place] [address] Dr. Dwight Waters LYMPH # 2.1 103/ul Normal 1.2-3.8 [facility] Comment on above: Performed By: #### C BC #### [facility] [address] [place] [address] Dr. Dwight Waters Lymphocytes/100 WBC (Bld) 39.1 % Normal 20.5-60.0 [facility] Comment on above: Performed By: #### C BC #### [facility] [address] [place] [address] Dr. Dwight Waters MANUAL DIFF REQ NO Normal [facility] Comment on above: Performed By: #### C BC #### [facility] [address] [place] [address] Dr. Dwight Waters MCH (RBC) [Entitic mass] 28.6 pg Normal 25.9-34.0 [facility] Comment on above: Performed By: #### C BC #### [facility] [address] [place] [address] Dr. Dwight Waters MCHC (RBC) [Mass/Vol] 32.9 g/dL Normal 29.9-35.2 [facility] Comment on above: Performed By: #### C BC #### [facility] [address] [address] [address] wDight Waters MCV (RBC) [Entitic vol] 86.9 fL Normal 80.0-94.0 [facility] Comment on above: Performed By: #### C BC #### [facility] [address] [address] [address] Dwight Waters MONO # 0.6 103/ul Normal 0.3-0.8 [facility] Comment on above: Performed By: #### C BC #### [facility] [address] [address] [address] Dwight Waters Monocytes/100 WBC (Bld) 10.6 % Normal 1.7-12.0 [facility] Comment on above: Performed By: #### C BC #### [facility] [address] [place] [address] Dr. Dwight Waters NEUT # 2.5 103/ul Normal 1.4-6.5 [facility] Comment on above: Performed By: #### C BC #### [facility] [address] [place] [address] Dr. Dwight Waters Neutrophils/100 WBC (Bld) 45.4 % Normal 43.0-75.0 [facility] Comment on above: Performed By: #### C BC #### [facility] [address] [address] [address] Dwight Waters Platelet mean volume (Bld) [Entitic vol] 9.3 fL Critically low 9.5-13.5 [facility] Comment on above: Performed By: #### C BC #### [facility] [address] [address] [address] Dwight Waters PLT 248 103/ul Normal 150-450 [facility] Comment on above: Performed By: #### C BC #### [facility] [address] [address] [address] Dwight Waters RBC 5.73 106/ul Normal 4.70-6.10 [facility] Comment on above: Performed By: #### C BC #### [facility] [address] [place] [address] Dr. Dwight Waters WBC 5.5 103/ul Normal 4.0-11.0 [facility] Comment on above: Performed By: #### C BC #### [facility] [address] [place] [address] Dr. Dwight Waters CHLORIDEon 04-28-2023 Chloride [Moles/Vol] 107 mmol/L Normal 98-107 [facility] Comment on above: Performed By: #### U RTPCR #### [facility] [address] [place] [address] Dr. Dwight Waters CO2on 04-28-2023 CO2 [Moles/Vol] 28.9 mmol/L Normal 21.0-32.[address] [facility] Comment on above: Performed By: #### U RTPCR #### [facility] [address] [place] [address] Dr. Dwight Waters CREATININEon 04-28-2023 Creatinine [Mass/Vol] 1.17 mg/dL Normal 0.70-1.30 [facility] Comment on above: Performed By: #### U RTPCR #### [facility] [address] [place] [address] Dr. Dwight Waters EGFR-AF QATARI >60 Normal >=60 [facility] Comment on above: Performed By: #### U RTPCR #### [facility] [address] [place] [address] Dr. Dwight Waters EGFR-NON AF QATARI >60 Normal >=60 [facility] Comment on above: Performed By: #### U RTPCR #### [facility] [address] [place] [address] Dr. Dwight Waters GGTon 04-28-2023 Gamma glutamyl transferase [Catalytic activity/Vol] 27 U/L Normal 15-85 [facility] Comment on above: Performed By: #### U RTPCR #### [facility] [address] [place] [address] Dr. Dwight Waters GLUCOSE BLOODon 04-28-2023 Glucose [Mass/Vol] 110 mg/dL Critically high 74-106 [facility] Comment on above: Performed By: #### U RTPCR #### [facility] [address] [place] [address] Dr. Dwight Waters MAGNESIUMon 04-28-2023 Magnesium [Mass/Vol] 1.7 mg/dL Critically low 1.8-2.4 [facility] Comment on above: Performed By: #### U RTPCR #### [facility] [address] [place] [address] Dr. Dwight Waters NAon 04-28-2023 Sodium [Moles/Vol] 144 mmol/L Normal 136-145 [facility] Comment on above: Performed By: #### U RTPCR #### [facility] [address] [place] [address] Dr. Dwight Waters PHOSPHORUSon 04-28-2023 Phosphate [Mass/Vol] 3.2 mg/dL Normal 2.6-4.7 [facility] Comment on above: Performed By: #### U RTPCR #### [facility] [address] [place] [address] Dr. Dwight Waters POTASSIUMon 04-28-2023 Potassium [Moles/Vol] 4.0 mmol/L Normal 3.5-5.1 [facility] Comment on above: Performed By: #### U RTPCR #### [facility] [address] [place] [address] Dr. Dwight Waters SGOTon 04-28-2023 AST [Catalytic activity/Vol] 25 U/L Normal 15-37 [facility] Comment on above: Performed By: #### C MP #### [facility] [address] [place] [address] Dr. Dwight Waters SGPTon 04-28-2023 ALT [Catalytic activity/Vol] 40 U/L Normal 16-63 [facility] Comment on above: Performed By: #### C MP #### [facility] [address] [place] [address] Dr. Dwight Waters URINE T PROTEIN CREAT RATIOo n 04-28-2023 Protein (U) [Mass/Vol] 10.1 mg/dL Normal <=12.0 [facility] Comment on above: Performed By: #### U RTPCR #### [facility] [address] [place] [address] Dr. Dwight Waters UR PROT CREAT RAT 0.14 Normal [facility] Comment on above: Performed By: #### U RTPCR #### [facility] [address] [place] [address] Dr. Dwight Waters URINE CREAT 74.40 mg/dL Normal 20.00-300.00 [facility] Comment on above: Performed By: #### U RTPCR #### [facility] [address] [place] [address] Dr. Dwight Waters BK VIRUS PCR QUANTon 023 BKV DNA QUANT PCR PLASMA Negative Normal Negative [facility] Comment on above: Result Comment: No B K DNA detected. . The linear range of the assay is 22 - 100,000,000 IU/mL. Performed By: #### B KVIRUS #### [facility] [address] [place] [address] Dr. Dwight Waters Log10 BKV DNA Plasma Normal [facility] Comment on above: Performed By: #### B KVIRUS #### [facility] [address] [place] [address] Dr. Dwight Waters FK506 (TACROLIMUS) WHOLE BLO ODon 03-04-2023 Tacrolimus (FK506), Blood 5.9 ng/mL Normal 2.0-20.0 [facility] Comment on above: Result Comment: Trou gh (immediately following transplant) 15.0 . Trough (steady state, 2 weeks or more after transplant): 3.0 - 8.0 . Performed by LC-MS/MS technology. Performed By: #### C MP #### [facility] [address] [place] [address] Dr. Dwight Waters ALBUMINon 03-02-2023 Albumin [Mass/Vol] 3.9 g/dL Normal 3.4-5.0 [facility] Comment on above: Performed By: #### U RTPCR #### [facility] [address] [place] [address] Dr. Dwight Waters ALKALINE PHOSPHAon ALP [Catalytic activity/Vol] 105 U/L Normal 46-116 [facility] Comment on above: Performed By: #### U RTPCR #### [facility] [address] [place] [address] Dr. Dwight Waters BILIRUBIN CONJUGATED (DIRECT )on 03-02-2023 BILI, CONJUGATED 0.2 mg/dL Normal 0.0-0.2 [facility] Comment on above: Performed By: #### U RTPCR #### [facility] [address] [place] [address] Dr. Dwight Waters BILIRUBIN TOTALon 03-02-2023 Bilirubin [Mass/Vol] 0.9 mg/dL Normal 0.2-1.0 [facility] Comment on above: Performed By: #### U RTPCR #### [facility] [address] [place] [address] Dr. Dwight Waters CBC AUTO DIFFon 03-02-2023 BASO # 0.1 103/ul Normal 0.0-0.1 [facility] Comment on above: Performed By: #### C BC #### [facility] [address] [place] [address] Dr. Dwight Waters Basophils/100 WBC (Bld) 0.9 % Normal 0.2-2.0 [facility] Comment on above: Performed By: #### C BC #### [facility] [address] [place] [address] Dr. Dwight Waters EO # 0.2 103/ul Normal 0.0-0.7 [facility] Comment on above: Performed By: #### C BC #### [facility] [address] [place] [address] Dr. Dwight Waters Eosinophils/100 WBC (Bld) 3.5 % Normal 0.9-7.0 [facility] Comment on above: Performed By: #### C BC #### [facility] [address] [place] [address] Dr. Dwight Waters Erythrocyte distribution width (RBC) [Ratio] 12.7 % Normal 11.0-15.0 [facility] Comment on above: Performed By: #### C BC #### [facility] [address] [address] [address] Dwight Waters Hematocrit (Bld) [Volume fraction] 48.2 % Normal 42.0-54.0 [facility] Comment on above: Performed By: #### C BC #### [facility] [address] [place] [address] Dr. Dwight Waters Hemoglobin (Bld) [Mass/Vol] 15.9 g/dL Normal 14.0-18.0 [facility] Comment on above: Performed By: #### C BC #### [facility] [address] [place] [address] Dr. Dwight Waters IG # 0.01 10e3/ul Normal 0.00-0.03 [facility] Comment on above: Performed By: #### C BC #### [facility] [address] [place] [address] Dr. Dwight Waters IG % 0.2 % Normal 0.0-0.5 [facility] Comment on above: Performed By: #### C BC #### [facility] [address] [place] [address] Dr. Dwight Waters LYMPH # 2.1 103/ul Normal 1.2-3.8 [facility] Comment on above: Performed By: #### C BC #### [facility] [address] [place] [address] Dr. Dwight Waters Lymphocytes/100 WBC (Bld) 37.4 % Normal 20.5-60.0 [facility] Comment on above: Performed By: #### C BC #### [facility] [address] [place] [address] Dr. Dwight Waters MANUAL DIFF REQ NO Normal [facility] Comment on above: Performed By: #### C BC #### [facility] [address] [place] [address] Dr. Dwight Waters MCH (RBC) [Entitic mass] 28.3 pg Normal 25.9-34.0 [facility] Comment on above: Performed By: #### C BC #### [facility] [address] [address] [address] Dwight Waters MCHC (RBC) [Mass/Vol] 33.0 g/dL Normal 29.9-35.2 [facility] Comment on above: Performed By: #### C BC #### [facility] [address] [address] [address] Dwight Waters MCV (RBC) [Entitic vol] 85.8 fL Normal 80.0-94.0 [facility] Comment on above: Performed By: #### C BC #### [facility] [address] [address] [address] Dwight Waters MONO # 0.6 103/ul Normal 0.3-0.8 [facility] Comment on above: Performed By: #### C BC #### [facility] [address] [place] [address] Dr. Dwight Waters Monocytes/100 WBC (Bld) 10.2 % Normal 1.7-12.0 [facility] Comment on above: Performed By: #### C BC #### [facility] [address] [place] [address] Dr. Dwight Waters NEUT # 2.7 103/ul Normal 1.4-6.5 [facility] Comment on above: Performed By: #### C BC #### [facility] [address] [place] [address] Dr. Dwight Waters Neutrophils/100 WBC (Bld) 47.8 % Normal 43.0-75.0 [facility] Comment on above: Performed By: #### C BC #### [facility] [address] [place] [address] Dr. Dwight Waters Platelet mean volume (Bld) [Entitic vol] 9.3 fL Critically low 9.5-13.5 [facility] Comment on above: Performed By: #### C BC #### [facility] [address] [place] [address] Dr. Dwight Waters PLT 241 103/ul Normal 150-450 [facility] Comment on above: Performed By: #### C BC #### [facility] [address] [place] [address] Dr. Dwight Waters RBC 5.62 106/ul Normal 4.70-6.10 [facility] Comment on above: Performed By: #### C BC #### [facility] [address] [place] [address] Dr. Dwgiht Waters WBC 5.7 103/ul Normal 4.0-11.0 [facility] Comment on above: Performed By: #### C BC #### [facility] [address] [place] [address] Dr. Dwight Waters GGTon 03-02-2023 Gamma glutamyl transferase [Catalytic activity/Vol] 25 U/L Normal 15-85 [facility] Comment on above: Performed By: #### U RTPCR #### [facility] [address] [place] [address] Dr. Dwight Waters MAGNESIUMon 03-02-2023 Magnesium [Mass/Vol] 1.6 mg/dL Critically low 1.8-2.4 [facility] Comment on above: Performed By: #### U RTPCR #### [facility] [address] [place] [address] Dr. Dwight Waters PHOSPHORUSon 03-02-2023 Phosphate [Mass/Vol] 3.6 mg/dL Normal 2.6-4.7 [facility] Comment on above: Performed By: #### U RTPCR #### [facility] [address] [place] [address] Dr. Dwight Waters PROF CHEM 8 (BAS METB)on Anion gap [Moles/Vol] 9.4 mmol/L Normal [facility] Comment on above: Performed By: #### U RTPCR #### [facility] [address] [place] [address] Dr. Dwight Waters Calcium [Mass/Vol] 9.3 mg/dL Normal 8.5-10.1 [facility] Comment on above: Performed By: #### U RTPCR #### [facility] [address] [place] [address] Dr. Dwight Waters Chloride [Moles/Vol] 108 mmol/L Critically high 98-107 [facility] Comment on above: Performed By: #### U RTPCR #### [facility] [address] [address] [address] Dwight Waters CO2 [Moles/Vol] 27.2 mmol/L Normal 21.0-32.[address] [facility] Comment on above: Performed By: #### U RTPCR #### [facility] [address] [address] [address] Dwight Waters Creatinine [Mass/Vol] 1.12 mg/dL Normal 0.70-1.30 [facility] Comment on above: Performed By: #### U RTPCR #### [facility] [address] [address] [address] Dwight Waters EGFR-AF QATARI >60 Normal >=[address] [facility] Comment on above: Performed By: #### U RTPCR #### [facility] [address] [address] [address] Dwight Waters EGFR-NON AF QATARI >60 Normal >=60 [facility] Comment on above: Performed By: #### U RTPCR #### [facility] [address] [address] [address] Dwight Waters Glucose [Mass/Vol] 113 mg/dL Critically high 74-106 [facility] Comment on above: Performed By: #### U RTPCR #### [facility] [address] [address] [address] Dwight Waters Potassium [Moles/Vol] 3.6 mmol/L Normal 3.5-5.1 [facility] Comment on above: Performed By: #### U RTPCR #### [facility] [address] [address] [address] Dwight Waters Sodium [Moles/Vol] 141 mmol/L Normal 136-145 [facility] Comment on above: Performed By: #### U RTPCR #### [facility] [address] [address] [address] Dwight Waters Urea nitrogen [Mass/Vol] 14.0 mg/dL Normal 7.0-18.0 [facility] Comment on above: Performed By: #### U RTPCR #### [facility] [address] [place] [address] Dr. Dwight Waters Urea nitrogen/Creatinine [Mass ratio] 12.5 mg/mg Normal [facility] Comment on above: Performed By: #### U RTPCR #### [facility] [address] [place] [address] Dr. Dwight Waters SGOTon 03-02-2023 AST [Catalytic activity/Vol] 20 U/L Normal 15-37 [facility] Comment on above: Performed By: #### U RTPCR #### [facility] [address] [place] [address] Dr. Dwight Waters SGPTon 03-02-2023 ALT [Catalytic activity/Vol] 30 U/L Normal 16-63 [facility] Comment on above: Performed By: #### U RTPCR #### [facility] [address] [place] [address] Dr. Dwight Waters URINE T PROTEIN CREAT RATIOo n 03-02-2023 Protein (U) [Mass/Vol] 10.3 mg/dL Normal <=12.0 [facility] Comment on above: Performed By: #### U RTPCR #### [facility] [address] [place] [address] Dr. Dwight Waters UR PROT CREAT RAT 0.15 Normal [facility] Comment on above: Performed By: #### U RTPCR #### [facility] [address] [place] [address] Dr. Dwight Waters URINE CREAT 68.96 mg/dL Normal 20.00-300.00 [facility] Comment on above: Performed By: #### U RTPCR #### [facility] [address] [place] [address] Dr. Dwight Waters BK VIRUS PCR QUANTon 023 BKV DNA QUANT PCR PLASMA Negative Normal Negative [facility] Comment on above: Result Comment: No B K DNA detected. . The linear range of the assay is 22 - 100,000,000 IU/mL. Performed By: #### C MP #### [facility] [address] [place] [address] Dr. Dwight Waters Log10 BKV DNA Plasma Normal [facility] Comment on above: Performed By: #### C MP #### [facility] [address] [place] [address] Dr. Dwight Waters FK506 (TACROLIMUS) WHOLE BLO ODon 12-31-2022 Tacrolimus (FK506), Blood 5.6 ng/mL Normal 2.0-20.0 [facility] Comment on above: Result Comment: Trou gh (immediately following transplant) 15.0 . Trough (steady state, 2 weeks or more after transplant): 3.0 - 8.0 . Performed by LC-MS/MS technology. Performed By: #### C MP #### [facility] [address] [place] [address] Dr. Dwight Waters ALKALINE PHOSPHAon ALP [Catalytic activity/Vol] 96 U/L Normal 46-116 [facility] Comment on above: Performed By: #### C BC #### [facility] [address] [place] [address] Dr. Dwight Waters BILIRUBIN CONJUGATED (DIRECT )on 12-29-2022 BILI, CONJUGATED 0.3 mg/dL Critically high 0.0-0.2 [facility] Comment on above: Performed By: #### C BC #### [facility] [address] [place] [address] Dr. Dwight Waters BILIRUBIN TOTALon 12-29-2022 Bilirubin [Mass/Vol] 1.1 mg/dL Critically high 0.2-1.0 [facility] Comment on above: Performed By: #### C BC #### [facility] [address] [place] [address] Dr. Dwight Waters CBC AUTO DIFFon 12-29-2022 BASO # 0.1 103/ul Normal 0.0-0.1 [facility] Comment on above: Performed By: #### C MP #### [facility] [address] [place] [address] Dr. Dwight Waters Basophils/100 WBC (Bld) 0.8 % Normal 0.2-2.0 [facility] Comment on above: Performed By: #### C MP #### [facility] [address] [place] [address] Dr. Dwight Waters EO # 0.2 103/ul Normal 0.0-0.7 [facility] Comment on above: Performed By: #### C MP #### [facility] [address] [place] [address] Dr. Dwight Waters Eosinophils/100 WBC (Bld) 3.0 % Normal 0.9-7.0 [facility] Comment on above: Performed By: #### C MP #### [facility] [address] [place] [address] Dr. Dwight Waters Erythrocyte distribution width (RBC) [Ratio] 12.9 % Normal 11.0-15.0 [facility] Comment on above: Performed By: #### C MP #### [facility] [address] [place] [address] Dr. Dwight Waters Hematocrit (Bld) [Volume fraction] 46.9 % Normal 42.0-54.0 [facility] Comment on above: Performed By: #### C MP #### [facility] [address] [place] [address] Dr. Dwight Waters Hemoglobin (Bld) [Mass/Vol] 16.1 g/dL Normal 14.0-18.0 [facility] Comment on above: Performed By: #### C MP #### [facility] [address] [place] [address] Dr. Dwight Waters IG # 0.01 10e3/ul Normal 0.00-0.03 [facility] Comment on above: Performed By: #### C MP #### [facility] [address] [place] [address] Dr. Dwight Waters IG % 0.2 % Normal 0.0-0.5 [facility] Comment on above: Performed By: #### C MP #### [facility] [address] [place] [address] Dr. Dwight Waters LYMPH # 1.8 103/ul Normal 1.2-3.8 [facility] Comment on above: Performed By: #### C MP #### [facility] [address] [address] [address] Dwight Waters Lymphocytes/100 WBC (Bld) 27.9 % Normal 20.5-60.0 [facility] Comment on above: Performed By: #### C MP #### [facility] [address] [place] [address] Dr. Dwight Waters MANUAL DIFF REQ NO Normal [facility] Comment on above: Performed By: #### C MP #### [facility] [address] [place] [address] Dr. Dwight Waters MCH (RBC) [Entitic mass] 28.5 pg Normal 25.9-34.0 [facility] Comment on above: Performed By: #### C MP #### [facility] [address] [place] [address] Dr. Dwight Waters MCHC (RBC) [Mass/Vol] 34.3 g/dL Normal 29.9-35.2 [facility] Comment on above: Performed By: #### C MP #### [facility] [address] [place] [address] Dr. Dwight Waters MCV (RBC) [Entitic vol] 83.2 fL Normal 80.0-94.0 [facility] Comment on above: Performed By: #### C MP #### [facility] [address] [place] [address] Dr. Dwight Waters MONO # 0.5 103/ul Normal 0.3-0.8 [facility] Comment on above: Performed By: #### C MP #### [facility] [address] [place] [address] Dr. Dwight Waters Monocytes/100 WBC (Bld) 8.1 % Normal 1.7-12.0 [facility] Comment on above: Performed By: #### C MP #### [facility] [address] [place] [address] Dr. Dwight Waters NEUT # 3.8 103/ul Normal 1.4-6.5 [facility] Comment on above: Performed By: #### C MP #### [facility] [address] [place] [address] Dr. Dwight Waters Neutrophils/100 WBC (Bld) 60.0 % Normal 43.0-75.0 [facility] Comment on above: Performed By: #### C MP #### [facility] [address] [address] [address] Dwight Waters Platelet mean volume (Bld) [Entitic vol] 9.2 fL Critically low 9.5-13.5 [facility] Comment on above: Performed By: #### C MP #### [facility] [address] [address] [address] Dwight Waters PLT 225 103/ul Normal 150-450 [facility] Comment on above: Performed By: #### C MP #### [facility] [address] [address] [address] Dwight Waters RBC 5.64 106/ul Normal 4.70-6.10 [facility] Comment on above: Performed By: #### C MP #### [facility] [address] [address] [address] Dwight Waters WBC 6.3 103/ul Normal 4.0-11.0 [facility] Comment on above: Performed By: #### C MP #### [facility] [address] [address] [address] Dwight Waters GGTon 12-29-2022 Gamma glutamyl transferase [Catalytic activity/Vol] 24 U/L Normal 15-85 [facility] Comment on above: Performed By: #### C MP #### [facility] [address] [address] [address] Dwight Waters LIPID PROFILEon 12-29-2022 CHOL-HDL RATIO NORM SEE BELOW Normal [facility] Comment on above: Result Comment: 3.3 - 4.4 LOW RISK 4.4 - 7.1 AVERAGE RISK 7.1 - 11.0 MODERATE RISK >11.0 HIGH RISK Performed By: #### U RTPCR #### [facility] [address] [place] [address] Dr. Dwight Waters Cholesterol [Mass/Vol] 87 mg/dL Normal <=200 [facility] Comment on above: Performed By: #### U RTPCR #### [facility] [address] [address] [address] Dwight Waters Cholesterol in HDL [Mass/Vol] 44 mg/dL Normal 40-60 [facility] Comment on above: Performed By: #### U RTPCR #### [facility] [address] [address] [address] Dwight Waters Cholesterol in LDL [Mass/Vol] 33.0 mg/dL Normal [facility] Comment on above: Performed By: #### U RTPCR #### [facility] [address] [address] [address] Dwight Waters Cholesterol.total/Chol esterol in HDL [Mass ratio] 2.0 {ratio} Normal [facility] Comment on above: Performed By: #### U RTPCR #### [facility] [address] [place] [address] Dr. Dwight Waters HDL NORMAL > or = 60 mg/dl - LO W CARDIOVASCULAR RISK <40 mg/dl - HIGH CARDIOVASCULAR RISK Normal [facility] Comment on above: Performed By: #### U RTPCR #### [facility] [address] [address] [address] Dwight Waters LDL CALC NORMAL SEE BELOW Normal [facility] Comment on above: Result Comment: <100 mg/dl OPTIMAL 100 - 129 mg/dl NEAR OR ABOVE OPTIMAL 130 - 159 mg/dl BORDERLINE HIGH 160 - 189 mg/dl HIGH >190 mg/dl VERY HIGH Performed By: #### U RTPCR #### [facility] [address] [address] [address] Dwight Waters Triglyceride [Mass/Vol] 50 mg/dL Normal <=150 [facility] Comment on above: Performed By: #### U RTPCR #### [facility] [address] [place] [address] Dr. Dwight Waters VLDL CALC 10.0 mg/dL Normal [facility] Comment on above: Performed By: #### U RTPCR #### [facility] [address] [address] [address] Dwight Waters MAGNESIUMon 01-30-2023 Magnesium [Mass/Vol] 1.6 mg/dL Critically low 1.8-2.4 [facility] Comment on above: Performed By: #### C BC #### [facility] [address] [place] [address] Dr. Dwight Waters RENAL FUNCTION PANELon 12-29 Albumin [Mass/Vol] 3.9 g/dL Normal 3.4-5.0 [facility] Comment on above: Performed By: #### C BC #### [facility] [address] [place] [address] Dr. Dwight Waters Calcium [Mass/Vol] 9.2 mg/dL Normal 8.5-10.1 [facility] Comment on above: Performed By: #### C BC #### [facility] [address] [place] [address] Dr. Dwight Waters Chloride [Moles/Vol] 109 mmol/L Critically high 98-107 [facility] Comment on above: Performed By: #### C BC #### [facility] [address] [place] [address] Dr. Dwight Waters CO2 [Moles/Vol] 27.0 mmol/L Normal 21.0-32.0 [facility] Comment on above: Performed By: #### C BC #### [facility] [address] [place] [address] Dr. Dwight Waters Creatinine [Mass/Vol] 1.02 mg/dL Normal 0.70-1.30 [facility] Comment on above: Performed By: #### C BC #### [facility] [address] [place] [address] Dr. Dwight Waters EGFR-AF QATARI >60 Normal >=60 [facility] Comment on above: Performed By: #### C BC #### [facility] [address] [place] [address] Dr. Dwight Waters EGFR-NON AF QATARI >60 Normal >=60 [facility] Comment on above: Performed By: #### C BC #### [facility] [address] [place] [address] Dr. Dwight Waters Glucose [Mass/Vol] 117 mg/dL Critically high 74-106 [facility] Comment on above: Performed By: #### C BC #### [facility] [address] [place] [address] Dr. Dwight Waters Phosphate [Mass/Vol] 3.2 mg/dL Normal 2.6-4.7 [facility] Comment on above: Performed By: #### C BC #### [facility] [address] [place] [address] Dr. Dwight Waters Potassium [Moles/Vol] 4.1 mmol/L Normal 3.5-5.1 [facility] Comment on above: Performed By: #### C BC #### [facility] [address] [place] [address] Dr. Dwight Waters Sodium [Moles/Vol] 144 mmol/L Normal 136-145 [facility] Comment on above: Performed By: #### C BC #### [facility] [address] [place] [address] Dr. Dwight Waters Urea nitrogen [Mass/Vol] 13.0 mg/dL Normal 7.0-18.0 [facility] Comment on above: Performed By: #### C BC #### [facility] [address] [place] [address] Dr. Dwight Waters SGOTon 12-29-2022 AST [Catalytic activity/Vol] 21 U/L Normal 15-37 [facility] Comment on above: Performed By: #### C BC #### [facility] [address] [place] [address] Dr. Dwight Waters SGPTon 12-29-2022 ALT [Catalytic activity/Vol] 32 U/L Normal 16-63 [facility] Comment on above: Performed By: #### C BC #### [facility] [address] [place] [address] Dr. Dwight Waters URINE T PROTEIN CREAT RATIOo n 12-29-2022 Protein (U) [Mass/Vol] 14.3 mg/dL Critically high <=12.0 [facility] Comment on above: Performed By: #### U RTPCR #### [facility] [address] [address] [address] Dwight Waters UR PROT CREAT RAT 0.17 Normal [facility] Comment on above: Performed By: #### U RTPCR #### [facility] [address] [place] [address] Dr. Dwight Waters URINE CREAT 86.58 mg/dL Normal 20.00-300.00 [facility] Comment on above: Performed By: #### U RTPCR #### [facility] [address] [place] [address] Dr. Dwight Waters FK506 (TACROLIMUS) WHOLE BLO ODon 11-06-2022 Tacrolimus (FK506), Blood 4.9 ng/mL Normal 2.0-20.0 [facility] Comment on above: Result Comment: Trou gh (immediately following transplant) 15.0 . Trough (steady state, 2 weeks or more after transplant): 3.0 - 8.0 . Performed by LC-MS/MS technology. Performed By: #### U RTPCR #### [facility] [address] [place] [address] Dr. Dwight Waters ALKALINE PHOSPHAon ALP [Catalytic activity/Vol] 86 U/L Normal 46-116 [facility] Comment on above: Performed By: #### U RTPCR #### [facility] [address] [place] [address] Dr. Dwight Waters BILIRUBIN CONJUGATED (DIRECT )on 11-04-2022 BILI, CONJUGATED 0.2 mg/dL Normal 0.0-0.[address] [facility] Comment on above: Performed By: #### U RTPCR #### [facility] [address] [place] [address] Dr. Dwight Waters BILIRUBIN TOTALon 11-04-2022 Bilirubin [Mass/Vol] 0.8 mg/dL Normal 0.2-1.0 [facility] Comment on above: Performed By: #### U RTPCR #### [facility] [address] [place] [address] Dr. Dwight Waters CBC AUTO DIFFon 11-04-2022 BASO # 0.1 103/ul Normal 0.0-0.1 [facility] Comment on above: Performed By: #### U RTPCR #### [facility] [address] [address] [address] Dwight Waters Basophils/100 WBC (Bld) 0.9 % Normal 0.2-2.0 [facility] Comment on above: Performed By: #### U RTPCR #### [facility] [address] [address] [address] Dwight Waters EO # 0.2 103/ul Normal 0.0-0.7 [facility] Comment on above: Performed By: #### U RTPCR #### [facility] [address] [address] [address] Dwight Waters Eosinophils/100 WBC (Bld) 3.7 % Normal 0.9-7.0 [facility] Comment on above: Performed By: #### U RTPCR #### [facility] [address] [place] [address] Dr. Dwight Waters Erythrocyte distribution width (RBC) [Ratio] 12.9 % Normal 11.0-15.0 [facility] Comment on above: Performed By: #### U RTPCR #### [facility] [address] [place] [address] Dr. Dwight Waters Hematocrit (Bld) [Volume fraction] 48.3 % Normal 42.0-54.0 [facility] Comment on above: Performed By: #### U RTPCR #### [facility] [address] [place] [address] Dr. Dwight Waters Hemoglobin (Bld) [Mass/Vol] 15.6 g/dL Normal 14.0-18.0 [facility] Comment on above: Performed By: #### U RTPCR #### [facility] [address] [address] [address] Dwight Waters IG # 0.01 10e3/ul Normal 0.00-0.03 [facility] Comment on above: Performed By: #### U RTPCR #### [facility] [address] [address] [address] Dwight Waters IG % 0.2 % Normal 0.0-0.5 [facility] Comment on above: Performed By: #### U RTPCR #### [facility] [address] [address] [address] Dwight Waters LYMPH # 1.9 103/ul Normal 1.2-3.8 [facility] Comment on above: Performed By: #### U RTPCR #### [facility] [address] [address] [address] Dwight Waters Lymphocytes/100 WBC (Bld) 33.0 % Normal 20.5-60.0 [facility] Comment on above: Performed By: #### U RTPCR #### [facility] [address] [address] [address] Dwight Waters MANUAL DIFF REQ NO Normal [facility] Comment on above: Performed By: #### U RTPCR #### [facility] [address] [place] [address] Dr. Dwight Waters MCH (RBC) [Entitic mass] 27.6 pg Normal 25.9-34.0 [facility] Comment on above: Performed By: #### U RTPCR #### [facility] [address] [place] [address] Dr. Dwight Waters MCHC (RBC) [Mass/Vol] 32.3 g/dL Normal 29.9-35.2 [facility] Comment on above: Performed By: #### U RTPCR #### [facility] [address] [address] [address] Dwight Waters MCV (RBC) [Entitic vol] 85.5 fL Normal 80.0-94.0 [facility] Comment on above: Performed By: #### U RTPCR #### [facility] [address] [address] [address] Dwight Waters MONO # 0.5 103/ul Normal 0.3-0.8 [facility] Comment on above: Performed By: #### U RTPCR #### [facility] [address] [address] [address] Dwight Waters Monocytes/100 WBC (Bld) 8.8 % Normal 1.7-12.0 [facility] Comment on above: Performed By: #### U RTPCR #### [facility] [address] [address] [address] Dwight Waters NEUT # 3.1 103/ul Normal 1.4-6.5 [facility] Comment on above: Performed By: #### U RTPCR #### [facility] [address] [address] [address] Dwight Waters Neutrophils/100 WBC (Bld) 53.4 % Normal 43.0-75.0 [facility] Comment on above: Performed By: #### U RTPCR #### [facility] [address] [address] [address] Dwight Waters Platelet mean volume (Bld) [Entitic vol] 9.2 fL Critically low 9.5-13.5 [facility] Comment on above: Performed By: #### U RTPCR #### [facility] [address] [address] [address] Dwight Waters PLT 255 103/ul Normal 150-450 [facility] Comment on above: Performed By: #### U RTPCR #### [facility] [address] [address] [address] Dwight Waters RBC 5.65 106/ul Normal 4.70-6.10 [facility] Comment on above: Performed By: #### U RTPCR #### [facility] [address] [place] [address] Dr. Dwight Waters WBC 5.7 103/ul Normal 4.0-11.0 [facility] Comment on above: Performed By: #### U RTPCR #### [facility] [address] [address] [address] Dwight Waters GGTon 11-04-2022 Gamma glutamyl transferase [Catalytic activity/Vol] 22 U/L Normal 15-85 [facility] Comment on above: Performed By: #### U RTPCR #### [facility] [address] [address] [address] Dwight Waters MAGNESIUMon 11-04-2022 Magnesium [Mass/Vol] 1.8 mg/dL Normal 1.8-2.4 [facility] Comment on above: Performed By: #### U RTPCR #### [facility] [address] [address] [address] Dwight Waters RENAL FUNCTION PANELon 11-04 Albumin [Mass/Vol] 3.8 g/dL Normal 3.4-5.0 [facility] Comment on above: Performed By: #### U RTPCR #### [facility] [address] [place] [address] Dr. Dwight Waters Calcium [Mass/Vol] 9.3 mg/dL Normal 8.5-10.1 [facility] Comment on above: Performed By: #### U RTPCR #### [facility] [address] [place] [address] Dr. Dwight Waters Chloride [Moles/Vol] 107 mmol/L Normal 98-107 [facility] Comment on above: Performed By: #### U RTPCR #### [facility] [address] [place] [address] Dr. Dwight Waters CO2 [Moles/Vol] 29.2 mmol/L Normal 21.0-32.[address] [facility] Comment on above: Performed By: #### U RTPCR #### [facility] [address] [place] [address] Dr. Dwight Waters Creatinine [Mass/Vol] 1.07 mg/dL Normal 0.70-1.30 [facility] Comment on above: Performed By: #### U RTPCR #### [facility] [address] [place] [address] Dr. Dwight Waters EGFR-AF QATARI >60 Normal >=60 [facility] Comment on above: Performed By: #### U RTPCR #### [facility] [address] [place] [address] Dr. Dwight Waters EGFR-NON AF QATARI >60 Normal >=60 [facility] Comment on above: Performed By: #### U RTPCR #### [facility] [address] [place] [address] Dr. Dwight Waters Glucose [Mass/Vol] 106 mg/dL Normal 74-106 [facility] Comment on above: Performed By: #### U RTPCR #### [facility] [address] [place] [address] Dr. Dwight Waters Phosphate [Mass/Vol] 2.8 mg/dL Normal 2.6-4.7 [facility] Comment on above: Performed By: #### U RTPCR #### [facility] [address] [place] [address] Dr. Dwight Waters Potassium [Moles/Vol] 4.1 mmol/L Normal 3.5-5.1 [facility] Comment on above: Performed By: #### U RTPCR #### [facility] [address] [place] [address] Dr. Dwight Waters Sodium [Moles/Vol] 143 mmol/L Normal 136-145 [facility] Comment on above: Performed By: #### U RTPCR #### [facility] [address] [place] [address] Dr. Dwight Waters Urea nitrogen [Mass/Vol] 12.0 mg/dL Normal 7.0-18.0 [facility] Comment on above: Performed By: #### U RTPCR #### [facility] [address] [place] [address] Dr. Dwight Albert 11-04-2022 AST [Catalytic activity/Vol] 19 U/L Normal 15-37 [facility] Comment on above: Performed By: #### U RTPCR #### [facility] [address] [place] [address] Dr. Dwight Waters SGPTon 11-04-2022 ALT [Catalytic activity/Vol] 28 U/L Normal 16-63 [facility] Comment on above: Performed By: #### U RTPCR #### [facility] [address] [place] [address] Dr. Dwight Waters URINE T PROTEIN CREAT RATIOo n 11-04-2022 Protein (U) [Mass/Vol] 10.7 mg/dL Normal <=12.0 [facility] Comment on above: Performed By: #### U RTPCR #### [facility] [address] [place] [address] Dr. Dwight Waters UR PROT CREAT RAT 0.13 Normal [facility] Comment on above: Performed By: #### U RTPCR #### [facility] [address] [place] [address] Dr. Dwight Waters URINE CREAT 84.50 mg/dL Normal 20.00-300.00 [facility] Comment on above: Performed By: #### U RTPCR #### [facility] [address] [place] [address] Dr. Dwight Waters FK506 (TACROLIMUS) WHOLE BLO ODon 09-18-2022 Tacrolimus (FK506), Blood 4.6 ng/mL Normal 2.0-20.0 [facility] Comment on above: Result Comment: Trou gh (immediately following transplant) 15.0 . Trough (steady state, 2 weeks or more after transplant): 3.0 - 8.0 . Performed by LC-MS/MS technology. Performed By: #### U RTPCR #### [facility] [address] [place] [address] Dr. Dwight Waters BK VIRUS PCR QUANTon 022 BKV DNA QUANT PCR PLASMA Negative Normal Negative [facility] Comment on above: Result Comment: No B K DNA detected. . The linear range of the assay is 22 - 100,000,000 IU/mL. Performed By: #### U RTPCR #### [facility] [address] [place] [address] Dr. Dwight Waters Log10 BKV DNA Plasma Normal [facility] Comment on above: Performed By: #### U RTPCR #### [facility] [address] [place] [address] Dr. Dwight Waters ALKALINE PHOSPHAon ALP [Catalytic activity/Vol] 92 U/L Normal 46-116 [facility] Comment on above: Performed By: #### U RTPCR #### [facility] [address] [place] [address] Dr. Dwight Waters BILIRUBIN CONJUGATED (DIRECT )on 09-15-2022 BILI, CONJUGATED 0.3 mg/dL Critically high 0.0-0.2 [facility] Comment on above: Performed By: #### U RTPCR #### [facility] [address] [place] [address] Dr. Dwight Waters BILIRUBIN TOTALon 09-15-2022 Bilirubin [Mass/Vol] 1.1 mg/dL Critically high 0.2-1.0 [facility] Comment on above: Performed By: #### U RTPCR #### [facility] [address] [place] [address] Dr. Dwight Waters CBC AUTO DIFFon 09-15-2022 BASO # 0.1 103/ul Normal 0.0-0.1 [facility] Comment on above: Performed By: #### C BC #### [facility] [address] [place] [address] Dr. Dwight Waters Basophils/100 WBC (Bld) 0.8 % Normal 0.2-2.0 [facility] Comment on above: Performed By: #### C BC #### [facility] [address] [place] [address] Dr. Dwight Waters EO # 0.2 103/ul Normal 0.0-0.7 [facility] Comment on above: Performed By: #### C BC #### [facility] [address] [place] [address] Dr. Dwight Waters Eosinophils/100 WBC (Bld) 3.5 % Normal 0.9-7.0 [facility] Comment on above: Performed By: #### C BC #### [facility] [address] [place] [address] Dr. Dwight Waters Erythrocyte distribution width (RBC) [Ratio] 13.0 % Normal 11.0-15.0 [facility] Comment on above: Performed By: #### C BC #### [facility] [address] [place] [address] Dr. Dwight Waters Hematocrit (Bld) [Volume fraction] 50.0 % Normal 42.0-54.0 [facility] Comment on above: Performed By: #### C BC #### [facility] [address] [place] [address] Dr. Dwight Waters Hemoglobin (Bld) [Mass/Vol] 16.0 g/dL Normal 14.0-18.0 [facility] Comment on above: Performed By: #### C BC #### [facility] [address] [place] [address] Dr. Dwight Waters IG # 0.02 10e3/ul Normal 0.00-0.03 [facility] Comment on above: Performed By: #### C BC #### [facility] [address] [place] [address] Dr. Dwight Waters IG % 0.3 % Normal 0.0-0.5 [facility] Comment on above: Performed By: #### C BC #### [facility] [address] [place] [address] Dr. Dwight Waters LYMPH # 1.8 103/ul Normal 1.2-3.8 [facility] Comment on above: Performed By: #### C BC #### [facility] [address] [place] [address] Dr. Dwight Waters Lymphocytes/100 WBC (Bld) 26.5 % Normal 20.5-60.0 [facility] Comment on above: Performed By: #### C BC #### [facility] [address] [place] [address] Dr. Dwight Waters MANUAL DIFF REQ NO Normal [facility] Comment on above: Performed By: #### C BC #### [facility] [address] [place] [address] Dr. Dwight Waters MCH (RBC) [Entitic mass] 28.1 pg Normal 25.9-34.0 [facility] Comment on above: Performed By: #### C BC #### [facility] [address] [place] [address] Dr. Dwight Waters MCHC (RBC) [Mass/Vol] 32.0 g/dL Normal 29.9-35.2 [facility] Comment on above: Performed By: #### C BC #### [facility] [address] [place] [address] Dr. Dwight Waters MCV (RBC) [Entitic vol] 87.9 fL Normal 80.0-94.0 [facility] Comment on above: Performed By: #### C BC #### [facility] [address] [address] [address] Dwight Waters MONO # 0.5 103/ul Normal 0.3-0.8 [facility] Comment on above: Performed By: #### C BC #### [facility] [address] [address] [address] Dwight Waters Monocytes/100 WBC (Bld) 8.1 % Normal 1.7-12.0 [facility] Comment on above: Performed By: #### C BC #### [facility] [address] [address] [address] Dwight Waters NEUT # 4.0 103/ul Normal 1.4-6.5 [facility] Comment on above: Performed By: #### C BC #### [facility] [address] [address] [address] Dwight Waters Neutrophils/100 WBC (Bld) 60.8 % Normal 43.0-75.0 [facility] Comment on above: Performed By: #### C BC #### [facility] [address] [address] [address] Dwight Waters Platelet mean volume (Bld) [Entitic vol] 9.4 fL Critically low 9.5-13.5 [facility] Comment on above: Performed By: #### C BC #### [facility] [address] [address] [address] Dwight Waters PLT 265 103/ul Normal 150-450 [facility] Comment on above: Performed By: #### C BC #### [facility] [address] [address] [address] Dwight Waters RBC 5.69 106/ul Normal 4.70-6.10 [facility] Comment on above: Performed By: #### C BC #### [facility] [address] [address] [address] Dwight Waters WBC 6.6 103/ul Normal 4.0-11.0 [facility] Comment on above: Performed By: #### C BC #### [facility] [address] [place] [address] Dr. Dwight Waters GGTon 09-15-2022 Gamma glutamyl transferase [Catalytic activity/Vol] 23 U/L Normal 15-85 [facility] Comment on above: Performed By: #### U RTPCR #### [facility] [address] [place] [address] Dr. Dwight Waters MAGNESIUMon 09-15-2022 Magnesium [Mass/Vol] 1.8 mg/dL Normal 1.8-2.4 [facility] Comment on above: Performed By: #### U RTPCR #### [facility] [address] [place] [address] Dr. Dwight Waters RENAL FUNCTION PANELon 09-15 Albumin [Mass/Vol] 4.1 g/dL Normal 3.4-5.0 [facility] Comment on above: Performed By: #### C BC #### [facility] [address] [place] [address] Dr. Dwight Waters Calcium [Mass/Vol] 9.3 mg/dL Normal 8.5-10.1 [facility] Comment on above: Performed By: #### C BC #### [facility] [address] [place] [address] Dr. Dwight Waters Chloride [Moles/Vol] 107 mmol/L Normal 98-107 [facility] Comment on above: Performed By: #### C BC #### [facility] [address] [place] [address] Dr. Dwight Waters CO2 [Moles/Vol] 25.6 mmol/L Normal 21.0-32.[address] [facility] Comment on above: Performed By: #### C BC #### [facility] [address] [place] [address] Dr. Dwight Waters Creatinine [Mass/Vol] 1.01 mg/dL Normal 0.70-1.30 [facility] Comment on above: Performed By: #### C BC #### [facility] [address] [place] [address] Dr. Dwight Waters EGFR-AF QATARI >60 Normal >=[address] [facility] Comment on above: Performed By: #### C BC #### [facility] [address] [address] [address] Dwight Waters EGFR-NON AF QATARI >60 Normal >=60 [facility] Comment on above: Performed By: #### C BC #### [facility] [address] [address] [address] Dwight Waters Glucose [Mass/Vol] 119 mg/dL Critically high 74-106 [facility] Comment on above: Performed By: #### C BC #### [facility] [address] [address] [address] Dwight Waters Phosphate [Mass/Vol] 2.8 mg/dL Normal 2.6-4.7 [facility] Comment on above: Performed By: #### C BC #### [facility] [address] [place] [address] Dr. Dwight Waters Potassium [Moles/Vol] 4.0 mmol/L Normal 3.5-5.1 [facility] Comment on above: Performed By: #### C BC #### [facility] [address] [place] [address] Dr. Dwight Waters Sodium [Moles/Vol] 141 mmol/L Normal 136-145 [facility] Comment on above: Performed By: #### C BC #### [facility] [address] [place] [address] Dr. Dwight Waters Urea nitrogen [Mass/Vol] 15.0 mg/dL Normal 7.0-18.0 [facility] Comment on above: Performed By: #### C BC #### [facility] [address] [place] [address] Dr. Dwight Waters SGOTon 09-15-2022 AST [Catalytic activity/Vol] 18 U/L Normal 15-37 [facility] Comment on above: Performed By: #### U RTPCR #### [facility] [address] [place] [address] Dr. Dwight Waters SGPTon 09-15-2022 ALT [Catalytic activity/Vol] 32 U/L Normal 16-63 [facility] Comment on above: Performed By: #### C BC #### [facility] [address] [address] [address] Dwight Waters URINE T PROTEIN CREAT RATIOo n 09-15-2022 Protein (U) [Mass/Vol] 14.1 mg/dL Critically high <=12.0 [facility] Comment on above: Performed By: #### U RTPCR #### [facility] [address] [address] [address] Dwight Waters UR PROT CREAT RAT 0.14 Normal [facility] Comment on above: Performed By: #### U RTPCR #### [facility] [address] [address] [address] Dwight Waters URINE CREAT 98.89 mg/dL Normal 20.00-300.00 [facility] Comment on above: Performed By: #### U RTPCR #### [facility] [address] [address] [address] Dwight Waters CAROTID ART BILon 022 [...] MÓNICA JIMENEZ Date: 2022-08-28 13:20 Normal [facility] FK506 (TACROLIMUS) WHOLE BLO ODon 08-17-2022 Tacrolimus (FK506), Blood 9.9 ng/mL Normal 2.0-20.0 [facility] Comment on above: Result Comment: Trou gh (immediately following transplant) 15.0 . Trough (steady state, 2 weeks or more after transplant): 3.0 - 8.0 . Performed by LC-MS/MS technology. Performed By: #### F [id number] #### [facility] [address] [place] [address] Dr. Dwight Waters BK VIRUS PCR QUANTon 022 BKV DNA QUANT PCR PLASMA Negative Normal Negative [facility] Comment on above: Result Comment: No B K DNA detected. . The linear range of the assay is 22 - 100,000,000 IU/mL. Performed By: #### U RTPCR #### [facility] [address] [place] [address] Dr. Dwight Waters Log10 BKV DNA Plasma Normal [facility] Comment on above: Performed By: #### U RTPCR #### [facility] [address] [place] [address] Dr. Dwight Waters ALBUMINon 08-14-2022 Albumin [Mass/Vol] 4.2 g/dL Normal 3.4-5.0 [facility] Comment on above: Performed By: #### F [id number] #### [facility] [address] [place] [address] Dr. Dwight Waters ALKALINE PHOSPHAon ALP [Catalytic activity/Vol] 92 U/L Normal 46-116 [facility] Comment on above: Performed By: #### C BC #### [facility] [address] [place] [address] Dr. Dwight Waters BILIRUBIN CONJUGATED (DIRECT )on 08-14-2022 BILI, CONJUGATED 0.3 mg/dL Critically high 0.0-0.2 [facility] Comment on above: Performed By: #### F [id number] #### [facility] [address] [place] [address] Dr. Dwight Waters BILIRUBIN TOTALon 08-14-2022 Bilirubin [Mass/Vol] 1.5 mg/dL Critically high 0.2-1.0 [facility] Comment on above: Performed By: #### F [id number] #### [facility] [address] [place] [address] Dr. Dwight Waters BUNon 08-14-2022 Urea nitrogen [Mass/Vol] 11.0 mg/dL Normal 7.0-18.0 [facility] Comment on above: Performed By: #### C BC #### [facility] [address] [place] [address] Dr. Dwight Waters CALCIUMon 08-14-2022 Calcium [Mass/Vol] 9.4 mg/dL Normal 8.5-10.1 [facility] Comment on above: Performed By: #### F [id number] #### [facility] [address] [place] [address] Dr. Dwight Waters CBC AUTO DIFFon 08-14-2022 BASO # 0.0 103/ul Normal 0.0-0.1 [facility] Comment on above: Performed By: #### C MP #### [facility] [address] [place] [address] Dr. Dwight Waters Basophils/100 WBC (Bld) 0.5 % Normal 0.2-2.0 [facility] Comment on above: Performed By: #### C MP #### [facility] [address] [place] [address] Dr. Dwight Waters EO # 0.2 103/ul Normal 0.0-0.7 [facility] Comment on above: Performed By: #### C MP #### [facility] [address] [place] [address] Dr. Dwight Waters Eosinophils/100 WBC (Bld) 2.6 % Normal 0.9-7.0 [facility] Comment on above: Performed By: #### C MP #### [facility] [address] [place] [address] Dr. Dwight Waters Erythrocyte distribution width (RBC) [Ratio] 13.1 % Normal 11.0-15.0 [facility] Comment on above: Performed By: #### C MP #### [facility] [address] [place] [address] Dr. Dwight Waters Hematocrit (Bld) [Volume fraction] 47.0 % Normal 42.0-54.0 [facility] Comment on above: Performed By: #### C MP #### [facility] [address] [place] [address] Dr. Dwight Waters Hemoglobin (Bld) [Mass/Vol] 15.3 g/dL Normal 14.0-18.0 [facility] Comment on above: Performed By: #### C MP #### [facility] [address] [place] [address] Dr. Dwight Waters IG # 0.01 10e3/ul Normal 0.00-0.03 [facility] Comment on above: Performed By: #### C MP #### [facility] [address] [place] [address] Dr. Dwight Waters IG % 0.1 % Normal 0.0-0.5 [facility] Comment on above: Performed By: #### C MP #### [facility] [address] [place] [address] Dr. Dwight Waters LYMPH # 2.3 103/ul Normal 1.2-3.8 [facility] Comment on above: Performed By: #### C MP #### [facility] [address] [place] [address] Dr. Dwight Waters Lymphocytes/100 WBC (Bld) 29.8 % Normal 20.5-60.0 [facility] Comment on above: Performed By: #### C MP #### [facility] [address] [place] [address] Dr. Dwight Waters MANUAL DIFF REQ NO Normal [facility] Comment on above: Performed By: #### C MP #### [facility] [address] [place] [address] Dr. Dwight Waters MCH (RBC) [Entitic mass] 28.2 pg Normal 25.9-34.0 [facility] Comment on above: Performed By: #### C MP #### [facility] [address] [place] [address] Dr. Dwight Waters MCHC (RBC) [Mass/Vol] 32.6 g/dL Normal 29.9-35.2 [facility] Comment on above: Performed By: #### C MP #### [facility] [address] [place] [address] Dr. Dwight Waters MCV (RBC) [Entitic vol] 86.7 fL Normal 80.0-94.0 [facility] Comment on above: Performed By: #### C MP #### [facility] [address] [place] [address] Dr. Dwight Waters MONO # 0.7 103/ul Normal 0.3-0.8 [facility] Comment on above: Performed By: #### C MP #### [facility] [address] [place] [address] Dr. Dwight Waters Monocytes/100 WBC (Bld) 8.5 % Normal 1.7-12.0 [facility] Comment on above: Performed By: #### C MP #### [facility] [address] [place] [address] Dr. Dwight Waters NEUT # 4.5 103/ul Normal 1.4-6.5 [facility] Comment on above: Performed By: #### C MP #### [facility] [address] [place] [address] Dr. Dwight Waters Neutrophils/100 WBC (Bld) 58.5 % Normal 43.0-75.0 [facility] Comment on above: Performed By: #### C MP #### [facility] [address] [place] [address] Dr. Dwight Waters Platelet mean volume (Bld) [Entitic vol] 9.7 fL Normal 9.5-13.5 [facility] Comment on above: Performed By: #### C MP #### [facility] [address] [place] [address] Dr. Dwight Waters PLT 266 103/ul Normal 150-450 [facility] Comment on above: Performed By: #### C MP #### [facility] [address] [place] [address] Dr. Dwight Waters RBC 5.42 106/ul Normal 4.70-6.10 [facility] Comment on above: Performed By: #### C MP #### [facility] [address] [place] [address] Dr. Dwight Waters WBC 7.6 103/ul Normal 4.0-11.0 [facility] Comment on above: Performed By: #### C MP #### [facility] [address] [place] [address] Dr. Dwight Waters CHLORIDEon 08-14-2022 Chloride [Moles/Vol] 104 mmol/L Normal 98-107 [facility] Comment on above: Performed By: #### C BC #### [facility] [address] [place] [address] Dr. Dwight Waters CO2on 08-14-2022 CO2 [Moles/Vol] 27.9 mmol/L Normal 21.0-32.[address] [facility] Comment on above: Performed By: #### C BC #### [facility] [address] [place] [address] Dr. Dwight Waters CREATININEon 08-14-2022 Creatinine [Mass/Vol] 1.08 mg/dL Normal 0.70-1.30 [facility] Comment on above: Performed By: #### C BC #### [facility] [address] [place] [address] Dr. Dwight Waters EGFR-AF QATARI >60 Normal >=[address] [facility] Comment on above: Performed By: #### C BC #### [facility] [address] [place] [address] Dr. Dwight Waters EGFR-NON AF QATARI >60 Normal >=60 [facility] Comment on above: Performed By: #### C BC #### [facility] [address] [place] [address] Dr. Dwight Waters GGTon 08-14-2022 Gamma glutamyl transferase [Catalytic activity/Vol] 24 U/L Normal 15-85 [facility] Comment on above: Performed By: #### F [id number] #### [facility] [address] [place] [address] Dr. Dwight Waters GLUCOSE BLOODon 08-14-2022 Glucose [Mass/Vol] 111 mg/dL Critically high 74-106 [facility] Comment on above: Performed By: #### C BC #### [facility] [address] [place] [address] Dr. Dwight Waters MAGNESIUMon 08-14-2022 Magnesium [Mass/Vol] 1.4 mg/dL Critically low 1.8-2.4 [facility] Comment on above: Performed By: #### C BC #### [facility] [address] [place] [address] Dr. Dwight Waters NAon 08-14-2022 Sodium [Moles/Vol] 140 mmol/L Normal 136-145 [facility] Comment on above: Performed By: #### F [id number] #### [facility] [address] [place] [address] Dr. Dwight Waters PHOSPHORUSon 08-14-2022 Phosphate [Mass/Vol] 3.1 mg/dL Normal 2.6-4.7 [facility] Comment on above: Performed By: #### C BC #### [facility] [address] [place] [address] Dr. Dwight Waters POTASSIUMon 08-14-2022 Potassium [Moles/Vol] 3.5 mmol/L Normal 3.5-5.1 [facility] Comment on above: Performed By: #### C BC #### [facility] [address] [place] [address] Dr. Dwight Waters SGAlicia 08-14-2022 AST [Catalytic activity/Vol] 17 U/L Normal 15-37 [facility] Comment on above: Performed By: #### F [id number] #### [facility] [address] [place] [address] Dr. Dwight Waters SGPTon 08-14-2022 ALT [Catalytic activity/Vol] 22 U/L Normal 16-63 [facility] Comment on above: Performed By: #### F [id number] #### [facility] [address] [place] [address] Dr. Dwight Waters URINE T PROTEIN CREAT RATIOo n 08-14-2022 Protein (U) [Mass/Vol] 10.7 mg/dL Normal <=12.0 [facility] Comment on above: Performed By: #### F [id number] #### [facility] [address] [place] [address] Dr. Dwight Waters UR PROT CREAT RAT 0.10 Normal [facility] Comment on above: Performed By: #### F [id number] #### [facility] [address] [place] [address] Dr. Dwight Waters URINE CREAT 104.28 mg/dL Normal 20.00-300.00 [facility] Comment on above: Performed By: #### F [id number] #### [facility] [address] [place] [address] Dr. Dwight Waters NEPHROSTOMY TUBE REMOVALon 0 [...] Assisting physician present for entire procedure: yes [facility] Radiology Study observation (narrative) [facility] FK506 (TACROLIMUS) WHOLE BLO ODon 07-06-2022 Tacrolimus (FK506), Blood 9.5 ng/mL Normal 2.0-20.0 [facility] Comment on above: Result Comment: Trou gh (immediately following transplant) 15.0 . Trough (steady state, 2 weeks or more after transplant): 3.0 - 8.0 . Performed by LC-MS/MS technology. Performed By: #### C MP #### [facility] [address] [place] [address] Dr. Dwight Waters ALBUMINon 07-03-2022 Albumin [Mass/Vol] 3.7 g/dL Normal 3.4-5.0 [facility] Comment on above: Performed By: #### U RTPCR #### [facility] [address] [place] [address] Dr. Dwight Waters ALKALINE PHOSPHAon ALP [Catalytic activity/Vol] 76 U/L Normal 46-116 [facility] Comment on above: Performed By: #### U RTPCR #### [facility] [address] [place] [address] Dr. Dwight Waters BILIRUBIN CONJUGATED (DIRECT )on 07-03-2022 BILI, CONJUGATED 0.3 mg/dL Critically high 0.0-0.2 [facility] Comment on above: Performed By: #### C BC #### [facility] [address] [place] [address] Dr. Dwight Waters BILIRUBIN TOTALon 07-03-2022 Bilirubin [Mass/Vol] 1.4 mg/dL Critically high 0.2-1.0 [facility] Comment on above: Performed By: #### C BC #### [facility] [address] [place] [address] Dr. Dwight Waters BUNon 07-03-2022 Urea nitrogen [Mass/Vol] 15.0 mg/dL Normal 7.0-18.0 [facility] Comment on above: Performed By: #### C BC #### [facility] [address] [place] [address] Dr. Dwight Waters CALCIUMon 07-03-2022 Calcium [Mass/Vol] 9.4 mg/dL Normal 8.5-10.1 [facility] Comment on above: Performed By: #### U RTPCR #### [facility] [address] [place] [address] Dr. Dwight Waters CBC AUTO DIFFon 07-03-2022 BASO # 0.0 103/ul Normal 0.0-0.1 [facility] Comment on above: Performed By: #### U RTPCR #### [facility] [address] [place] [address] Dr. Dwight Waters Basophils/100 WBC (Bld) 0.6 % Normal 0.2-2.0 [facility] Comment on above: Performed By: #### U RTPCR #### [facility] [address] [place] [address] Dr. Dwight Waters EO # 0.2 103/ul Normal 0.0-0.7 [facility] Comment on above: Performed By: #### U RTPCR #### [facility] [address] [place] [address] Dr. Dwight Waters Eosinophils/100 WBC (Bld) 3.5 % Normal 0.9-7.0 [facility] Comment on above: Performed By: #### U RTPCR #### [facility] [address] [place] [address] Dr. Dwight Waters Erythrocyte distribution width (RBC) [Ratio] 12.9 % Normal 11.0-15.0 [facility] Comment on above: Performed By: #### U RTPCR #### [facility] [address] [place] [address] Dr. Dwight Waters Hematocrit (Bld) [Volume fraction] 44.2 % Normal 42.0-54.0 [facility] Comment on above: Performed By: #### U RTPCR #### [facility] [address] [place] [address] Dr. Dwight Waters Hemoglobin (Bld) [Mass/Vol] 14.6 g/dL Normal 14.0-18.0 [facility] Comment on above: Performed By: #### U RTPCR #### [facility] [address] [place] [address] Dr. Dwight Waters IG # 0.02 10e3/ul Normal 0.00-0.03 [facility] Comment on above: Performed By: #### U RTPCR #### [facility] [address] [place] [address] Dr. Dwight Waters IG % 0.3 % Normal 0.0-0.5 [facility] Comment on above: Performed By: #### U RTPCR #### [facility] [address] [place], [place] [address] Dr. Dwight Waters LYMPH # 2.0 103/ul Normal 1.2-3.8 [facility] Comment on above: Performed By: #### U RTPCR #### [facility] [address] [place] [address] Dr. Dwight Waters Lymphocytes/100 WBC (Bld) 28.4 % Normal 20.5-60.0 [facility] Comment on above: Performed By: #### U RTPCR #### [facility] [address] [place] [address] Dr. Dwight Waters MANUAL DIFF REQ NO Normal [facility] Comment on above: Performed By: #### U RTPCR #### [facility] [address] [place] [address] Dr. Dwight Waters MCH (RBC) [Entitic mass] 28.6 pg Normal 25.9-34.0 [facility] Comment on above: Performed By: #### U RTPCR #### [facility] [address] [place] [address] Dr. Dwight Waters MCHC (RBC) [Mass/Vol] 33.0 g/dL Normal 29.9-35.2 [facility] Comment on above: Performed By: #### U RTPCR #### [facility] [address] [place] [address] Dr. Dwight Waters MCV (RBC) [Entitic vol] 86.7 fL Normal 80.0-94.0 [facility] Comment on above: Performed By: #### U RTPCR #### [facility] [address] [place] [address] Dr. Dwight Waters MONO # 0.6 103/ul Normal 0.3-0.8 [facility] Comment on above: Performed By: #### U RTPCR #### [facility] [address] [place] [address] Dr. Dwight Waters Monocytes/100 WBC (Bld) 9.1 % Normal 1.7-12.0 [facility] Comment on above: Performed By: #### U RTPCR #### [facility] [address] [place] [address] Dr. Dwight Waters NEUT # 4.0 103/ul Normal 1.4-6.5 [facility] Comment on above: Performed By: #### U RTPCR #### [facility] [address] [place] [address] Dr. Dwight Waters Neutrophils/100 WBC (Bld) 58.1 % Normal 43.0-75.0 [facility] Comment on above: Performed By: #### U RTPCR #### [facility] [address] [place] [address] Dr. Dwight Waters Platelet mean volume (Bld) [Entitic vol] 9.5 fL Normal 9.5-13.5 [facility] Comment on above: Performed By: #### U RTPCR #### [facility] [address] [place] [address] Dr. Dwight Waters PLT 292 103/ul Normal 150-450 [facility] Comment on above: Performed By: #### U RTPCR #### [facility] [address] [place] [address] Dr. Dwight Waters RBC 5.10 106/ul Normal 4.70-6.10 [facility] Comment on above: Performed By: #### U RTPCR #### [facility] [address] [place] [address] Dr. Dwight Waters WBC 6.9 103/ul Normal 4.0-11.0 [facility] Comment on above: Performed By: #### U RTPCR #### [facility] [address] [place] [address] Dr. Dwight Waters CHLORIDEon 07-03-2022 Chloride [Moles/Vol] 108 mmol/L Critically high 98-107 [facility] Comment on above: Performed By: #### C BC #### [facility] [address] [place] [address] Dr. Dwight Waters CO2on 07-03-2022 CO2 [Moles/Vol] 25.2 mmol/L Normal 21.0-32.0 [facility] Comment on above: Performed By: #### C BC #### [facility] [address] [place] [address] Dr. Dwight Waters CREATININEon 07-03-2022 Creatinine [Mass/Vol] 1.03 mg/dL Normal 0.70-1.30 [facility] Comment on above: Performed By: #### U RTPCR #### [facility] [address] [address] [address] Dwight Waters EGFR-AF QATARI >60 Normal >=[address] [facility] Comment on above: Performed By: #### U RTPCR #### [facility] [address] [address] [address] Dwight Waters EGFR-NON AF QATARI >60 Normal >=60 [facility] Comment on above: Performed By: #### U RTPCR #### [facility] [address] [address] [address] Dwight Waters GGTon 07-03-2022 Gamma glutamyl transferase [Catalytic activity/Vol] 31 U/L Normal 15-85 [facility] Comment on above: Performed By: #### U RTPCR #### [facility] [address] [address] [address] Dwight Waters GLUCOSE BLOODon 07-03-2022 Glucose [Mass/Vol] 119 mg/dL Critically high 74-106 [place] [facility] Comment on above: Performed By: #### U RTPCR #### [facility] [address] [address] [address] Dwight Waters MAGNESIUMon 07-03-2022 Magnesium [Mass/Vol] 1.4 mg/dL Critically low 1.8-2.4 [facility] Comment on above: Performed By: #### C BC #### [facility] [address] [address] [address] Dwight Waters NAon 07-03-2022 Sodium [Moles/Vol] 142 mmol/L Normal 136-145 [facility] Comment on above: Performed By: #### C MP #### [facility] [address] [address] [address] Dwight Waters PHOSPHORUSon 07-03-2022 Phosphate [Mass/Vol] 3.4 mg/dL Normal 2.6-4.7 [facility] Comment on above: Performed By: #### C BC #### [facility] [address] [address] [address] Dwight Waters POTASSIUMon 07-03-2022 Potassium [Moles/Vol] 4.1 mmol/L Normal 3.5-5.1 [facility] Comment on above: Performed By: #### C BC #### [facility] [address] [place] [address] Dr. Dwight Waters SGOTon 07-03-2022 AST [Catalytic activity/Vol] 14 U/L Critically low 15-37 [facility] Comment on above: Performed By: #### C BC #### [facility] [address] [place] [address] Dr. Dwight Waters SGPTon 07-03-2022 ALT [Catalytic activity/Vol] 25 U/L Normal 16-63 [facility] Comment on above: Performed By: #### C BC #### [facility] [address] [place] [address] Dr. Dwight Waters US KIDNEYSon 07-03-2022 US KIDNEYS Ultrasound kidneys, bilateral HISTORY: Transplant of kidney , pain in the right lower quadrant COMPARISON: None. TECHNIQUE: Transabdominal ultrasound imaging of both kidneys was performed. FINDINGS: The [place] kidneys are diffusely echogenic and atrophic with cortical thinning. The right kidney measures 8.3 x 3.5 x 4.07 m and the left measures 9.9 x 3.8 x 3.6 cm. No hydronephrosis of the [place] kidneys. There is a renal transplant in [...] stone involving the renal transplant. 2. Atrophic [place] kidneys. 3. Normal bladder. Electronically authenticated by: ARCELIA PIZARRO Date: 2022-07-03 17:22 Normal [facility] CT Abdomen and Pelvis WO geoff sosa 06-27-2022 IMPRESSION: 1. Both [place] kidneys are atrophic with improvement in right-sided [...] Adrenals: Adrenal glands are unremarkable. Kidneys: Both [place] kidneys are atrophic. Interval improvement in right [place] kidney hydronephrosis since May 15, 2022. Status [...] Adrenals: Adrenal glands are unremarkable. Kidneys: Both [place] kidneys are atrophic. Interval improvement in right [place] kidney hydronephrosis since May 15, 2022. Status [...] aggressive osseous lesions. IMPRESSION IMPRESSION: 1. Both [place] kidneys are atrophic with improvement in right-sided hydronephrosis since May 15, 2022. 2. 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 No hydronephrosis. No discrete perinephric collection. 3. Partially imaged postsurgical changes related to prior liver transplant. 4. The bladder is decompressed, limiting evaluation. [facility] Radiology Study observation (narrative) [facility] CT Abdomen and Pelvis WO con trastOrdered By: Gera Lu on 06-27-2022 [facility] Work Phone: CBC AUTO DIFFon 06-18-2022 BASO # 0.0 103/ul Normal 0.0-0.1 [facility] Comment on above: Performed By: #### U RTPCR #### [facility] [address] [address] [address] Diwght Waters Basophils/100 WBC (Bld) 0.5 % Normal 0.2-2.0 [facility] Comment on above: Performed By: #### U RTPCR #### [facility] [address] [address] [address] Dwight Waters EO # 0.2 103/ul Normal 0.0-0.7 [facility] Comment on above: Performed By: #### U RTPCR #### [facility] [address] [address] [address] Dwight Waters Eosinophils/100 WBC (Bld) 2.3 % Normal 0.9-7.0 [facility] Comment on above: Performed By: #### U RTPCR #### [facility] [address] [address] [address] Dwight Waters Erythrocyte distribution width (RBC) [Ratio] 12.9 % Normal 11.0-15.0 [facility] Comment on above: Performed By: #### U RTPCR #### [facility] [address] [address] [address] Dwight Waters Hematocrit (Bld) [Volume fraction] 41.2 % Critically low 42.0-54.0 [facility] Comment on above: Performed By: #### U RTPCR #### [facility] [address] [address] [address] Dwight Waters Hemoglobin (Bld) [Mass/Vol] 13.3 g/dL Critically low 14.0-18.0 [facility] Comment on above: Performed By: #### U RTPCR #### [facility] [address] [place] [address] Dr. Dwight Waters IG # 0.04 10e3/ul Critically high 0.00-0.03 [facility] Comment on above: Performed By: #### U RTPCR #### [facility] [address] [place] [address] Dr. Dwight Waters IG % 0.5 % Normal 0.0-0.5 [facility] Comment on above: Performed By: #### U RTPCR #### [facility] [address] [place] [address] Dr. Dwight Waters LYMPH # 2.0 103/ul Normal 1.2-3.8 [facility] Comment on above: Performed By: #### U RTPCR #### [facility] [address] [place] [address] Dr. Dwight Waters Lymphocytes/100 WBC (Bld) 22.9 % Normal 20.5-60.0 [facility] Comment on above: Performed By: #### U RTPCR #### [facility] [address] [place] [address] Dr. Dwight Waters MANUAL DIFF REQ NO Normal [facility] Comment on above: Performed By: #### U RTPCR #### [facility] [address] [place] [address] Dr. Dwight Waters MCH (RBC) [Entitic mass] 28.7 pg Normal 25.9-34.0 [facility] Comment on above: Performed By: #### U RTPCR #### [facility] [address] [place] [address] Dr. Dwight Waters MCHC (RBC) [Mass/Vol] 32.3 g/dL Normal 29.9-35.2 [facility] Comment on above: Performed By: #### U RTPCR #### [facility] [address] [place] [address] Dr. Dwight Waters MCV (RBC) [Entitic vol] 88.8 fL Normal 80.0-94.0 [facility] Comment on above: Performed By: #### U RTPCR #### [facility] [address] [address] [address] Dwight Waters MONO # 0.8 103/ul Normal 0.3-0.8 [facility] Comment on above: Performed By: #### U RTPCR #### [facility] [address] [address] [address] Dwight Waters Monocytes/100 WBC (Bld) 9.7 % Normal 1.7-12.0 [facility] Comment on above: Performed By: #### U RTPCR #### [facility] [address] [place] [address] Dr. Dwight Waters NEUT # 5.6 103/ul Normal 1.4-6.5 [facility] Comment on above: Performed By: #### U RTPCR #### [facility] [address] [place] [address] Dr. Dwight Waters Neutrophils/100 WBC (Bld) 64.1 % Normal 43.0-75.0 [facility] Comment on above: Performed By: #### U RTPCR #### [facility] [address] [place] [address] Dr. Dwight Waters Platelet mean volume (Bld) [Entitic vol] 10.0 fL Normal 9.5-13.5 [facility] Comment on above: Performed By: #### U RTPCR #### [facility] [address] [place] [address] Dr. Dwight Waters PLT 270 103/ul Normal 150-450 [facility] Comment on above: Performed By: #### U RTPCR #### [facility] [address] [place] [address] Dr. Dwight Waters RBC 4.64 106/ul Critically low 4.70-6.10 [facility] Comment on above: Performed By: #### U RTPCR #### [facility] [address] [place] [address] Dr. Dwight Waters WBC 8.7 103/ul Normal 4.0-11.0 [facility] Comment on above: Performed By: #### U RTPCR #### [facility] [address] [place] [address] Dr. Dwight Waters CULTURE URINEon 06-18-2022 CULTURE URINE Culture Observations : NO GROWTH. Normal [facility] Comment on above: Performed By: #### U RTPCR #### [facility] [address] [place] [address] Dr. Dwight Waters Covid-19 PCR ([facility])on 05-31 SARS-CoV-2 (COVID-19) RNA ESTELITA+probe Ql (Unsp spec) Not detected Normal NOT DETECTED [facility] Comment on above: Result Comment: When [...] for this test is supported by the [place] of Health and Human Service's declaration that [...] used). Performed By: #### C BC #### [facility] [address] [place] [address] Dr. Dwight Waters ER URINE PROFILEon 2 Bilirubin Ql (U) Negative Normal NEGATIVE [facility] Comment on above: Performed By: #### U RTPCR #### [facility] [address] [place] [address] Dr. Dwight Waters Clarity (U) CLEAR Normal CLEAR [facility] Comment on above: Performed By: #### U RTPCR #### [facility] [address] [place] [address] Dr. Dwight Waters Color (U) YELLOW Normal YELLOW [facility] Comment on above: Performed By: #### U RTPCR #### [facility] [address] [address] [address] Dwight SHARMA A micrscopic examination will be performed if indicated. Normal [facility] Comment on above: Performed By: #### U RTPCR #### [facility] [address] [place] [address] Dr. Dwight Waters Glucose Ql (U) Negative Normal NEGATIVE [facility] Comment on above: Performed By: #### U RTPCR #### [facility] [address] [address] [address] Dwight Waters Hemoglobin Ql (U) LARGE Abnormal NEGATIVE [facility] Comment on above: Performed By: #### U RTPCR #### [facility] [address] [place] [address] Dr. Dwight Waters Ketones Ql (U) Negative Normal NEGATIVE [facility] Comment on above: Performed By: #### U RTPCR #### [facility] [address] [place] [address] Dr. Dwight Waters LEUKOCYTES TRACE Abnormal NEGATIVE [facility] Comment on above: Performed By: #### U RTPCR #### [facility] [address] [place] [address] Dr. Dwight Waters Nitrite Ql (U) Negative Normal NEGATIVE [facility] Comment on above: Performed By: #### U RTPCR #### [facility] [address] [place] [address] Dr. Dwight Waters pH (U) 6.0 [pH] Normal 5-9 [facility] Comment on above: Performed By: #### U RTPCR #### [facility] [address] [place] [address] Dr. Dwight Waters Protein (U) [Mass/Vol] 30 mg/dL Abnormal NEGAT MAYUR/ TRACE [facility] Comment on above: Performed By: #### U RTPCR #### [facility] [address] [place] [address] Dr. Dwight Waters SPEC GRAVITY >=1.030 Abnormal 1.005-<=1.025 [facility] Comment on above: Performed By: #### U RTPCR #### [facility] [address] [place] [address] Dr. Dwight Waters UR MICRO IND INDICATED Normal [facility] Comment on above: Performed By: #### U RTPCR #### [facility] [address] [place] [address] Dr. Dwight Waters Urobilinogen Qn (U) 0.2 {Alyssa'U}/dL Normal 0.2 - 1. 0 [facility] Comment on above: Performed By: #### U RTPCR #### [facility] [address] [place] [address] Dr. Dwight Waters PROF 14(COMP METB)on 022 Albumin [Mass/Vol] 3.7 g/dL Normal 3.4-5.0 [facility] Comment on above: Performed By: #### C MP #### [facility] [address] [place] [address] Dr. Dwight Waters Albumin/Globulin [Mass ratio] 0.9 {ratio} Normal [facility] Comment on above: Performed By: #### C MP #### [facility] [address] [place] [address] Dr. Dwight Waters ALP [Catalytic activity/Vol] 80 U/L Normal 46-116 [facility] Comment on above: Performed By: #### C MP #### [facility] [address] [place] [address] Dr. Dwight Waters ALT [Catalytic activity/Vol] 24 U/L Normal 16-63 [facility] Comment on above: Performed By: #### C MP #### [facility] [address] [place] [address] Dr. Dwight Waters Anion gap [Moles/Vol] 12.9 mmol/L Normal [facility] Comment on above: Performed By: #### C MP #### [facility] [address] [place] [address] Dr. Dwight Waters AST [Catalytic activity/Vol] 17 U/L Normal 15-37 [facility] Comment on above: Performed By: #### C MP #### [facility] [address] [address] [address] Dwight Waters Bilirubin [Mass/Vol] 0.8 mg/dL Normal 0.2-1.0 [facility] Comment on above: Performed By: #### C MP #### [facility] [address] [place] [address] Dr. Dwight Waters Calcium [Mass/Vol] 9.4 mg/dL Normal 8.5-10.1 [facility] Comment on above: Performed By: #### C MP #### [facility] [address] [place] [address] Dr. Dwight Waters Chloride [Moles/Vol] 106 mmol/L Normal 98-107 [facility] Comment on above: Performed By: #### C MP #### [facility] [address] [place] [address] Dr. Dwight Waters CO2 [Moles/Vol] 25.3 mmol/L Normal 21.0-32.0 [facility] Comment on above: Performed By: #### C MP #### [facility] [address] [place] [address] Dr. Dwight Waters Creatinine [Mass/Vol] 1.29 mg/dL Normal 0.70-1.30 [facility] Comment on above: Performed By: #### C MP #### [facility] [address] [place] [address] Dr. Dwight Waters EGFR-AF QATARI >60 Normal >=60 [facility] Comment on above: Performed By: #### C MP #### [facility] [address] [place] [address] Dr. Dwight Waters EGFR-NON AF QATARI 59 mL/min/1.73m2 Critically low >=60 [facility] Comment on above: Performed By: #### C MP #### [facility] [address] [place] [address] Dr. Dwight Waters Globulin (S) [Mass/Vol] 4.2 g/dL Normal [facility] Comment on above: Performed By: #### C MP #### [facility] [address] [place] [address] Dr. Dwight Waters Glucose [Mass/Vol] 106 mg/dL Normal 74-106 [facility] Comment on above: Performed By: #### C MP #### [facility] [address] [place] [address] Dr. Dwight Waters Potassium [Moles/Vol] 4.2 mmol/L Normal 3.5-5.1 [facility] Comment on above: Performed By: #### C MP #### [facility] [address] [place] [address] Dr. Dwight Waters Protein [Mass/Vol] 7.9 g/dL Normal 6.4-8.2 [facility] Comment on above: Performed By: #### C MP #### [facility] [address] [place] [address] Dr. Dwight Waters Sodium [Moles/Vol] 140 mmol/L Normal 136-145 [facility] Comment on above: Performed By: #### C MP #### [facility] [address] [place] [address] Dr. Dwight Waters Urea nitrogen [Mass/Vol] 22.0 mg/dL Critically high 7.0-18.0 [facility] Comment on above: Performed By: #### C MP #### [facility] [address] [place] [address] Dr. Dwight Waters Urea nitrogen/Creatinine [Mass ratio] 17.1 mg/mg Normal [facility] Comment on above: Performed By: #### C MP #### [facility] [address] [place] [address] Dr. Dwight Waters URINE MICROSCOPIC ONLYon BACTERIA TRACE Abnormal NONE SEEN [facility] Comment on above: Performed By: #### U RTPCR #### [facility] [address] [place] [address] Dr. Dwight Waters Bacteria identified Cx Nom (U) INDICATED Normal [facility] Comment on above: Performed By: #### U RTPCR #### [facility] [address] [place] [address] Dr. Dwight Waters CAST NONE SEEN Normal NONE SEEN [facility] Comment on above: Performed By: #### U RTPCR #### [facility] [address] [place] [address] Dr. Dwight Waters Crystals LM Nom (Urine sed) NONE SEEN Normal NONE SEEN [facility] Comment on above: Performed By: #### U RTPCR #### [facility] [address] [place] [address] Dr. Dwight Waters Epithelial cells LM Ql (Urine sed) NONE SEEN Normal NONE SEEN /RARE [facility] Comment on above: Performed By: #### U RTPCR #### [facility] [address] [place] [address] Dr. Dwight Waters MUCOUS NONE SEEN Normal NONE SEEN [facility] Comment on above: Performed By: #### U RTPCR #### [facility] [address] [place] [address] Dr. Dwight Waters RBC 5-10 Abnormal 0-2 [facility] Comment on above: Performed By: #### U RTPCR #### [facility] [address] [place] [address] Dr. Dwight Waters WBC 10-20 Abnormal NONE SEEN [facility] Comment on above: Performed By: #### U RTPCR #### [facility] [address] [place] [address] Dr. Dwight Waters ALLOSCREEN RECIPIENT (POST T X PRA)on 06-13-2022 AB SPECIFICITY CLASS COMMENT Antibody Specificity testing performed by [employer]. cPRA calculation based on identification of HLA antibody specificities at MFI >2000 and/or presence of CREG antibodies. [facility] Comment on above: Some of the reagents used for testing in the Clinical Histocompatibility Laboratory have yet to be approved by the FDA. Our certification by CLIA to perform high complexity tests allows us to use these reagents in the context of a stringent QC program, and obviates the need for FDA approval.Testing performed by the [facility] Clinical Histocompatibility Laboratory. [facility] number: [id number]. CLIA number: [id number], Director: Carlito Merchant, PhD, D([facility]). ANTIBODY SPECIFICITY INTERPRETATION Detected [facility] CLASS I SPECIFICITIES Not detected [facility] CLASS II SPECIFICITIES Not detected [facility] HLA Ab (S) 0 % 0 [facility] EXTRA MICROon 06-13-2022 [facility] URINE CULTUREOrdered By: Jah Upton on 06-13-2022 Bacteria identified Cx Nom (Unsp spec) Growth [facility] Bacteria identified Cx Nom (Unsp spec) 10,000-50,000 CFU/mL Mixed skin shimon [facility] Comment on above: Multiple bacterial m orphotypes present. Suggest appropriate recollection if clinically indicated. [facility] CBC,PLATELETSon 06-12-2022 Erythrocyte distribution width (RBC) [Ratio] 13.0 % 10.9 - 14.3 % [facility] Hematocrit (Bld) [Volume fraction] 43.2 % 39.6 - 48.8 % [facility] Hemoglobin (Bld) [Mass/Vol] 13.9 g/dL 13.4 - 16.8 g/dL [facility] Interpretation and review of laboratory results Normal [facility] MCH (RBC) [Entitic mass] 28.7 pg 26.1 - 33.3 pg [facility] MCHC (RBC) [Mass/Vol] 32.2 g/dL 31.9 - 36.5 g/dL [facility] MCV (RBC) [Entitic vol] 89.1 fL 79.0 - 94.5 fL [facility] Platelet mean volume (Bld) [Entitic vol] 10.5 fL 8.7 - 12.3 fL [facility] Platelets (Bld) [#/Vol] 269 10*3/uL 146 - 337 K/uL [facility] RBC (Bld) [#/Vol] 4.85 10*6/uL [facility] WBC (Bld) [#/Vol] 7.68 10*3/uL 3.73 - 10. 10 K/uL [facility] CHEM 7 (LYTES,BUN,CREA,GLUC) on 06-12-2022 Anion gap [Moles/Vol] 14 mmol/L 7 - 17 mmol/L [facility] Chloride [Moles/Vol] 106 mmol/L 98 - 10 8 mmol/L [facility] CO2 [Moles/Vol] 25 mmol/L 21 - 31 mmol/L [facility] Creatinine [Mass/Vol] 1.26 mg/dL 0.70 - 1.30 mg/dL [facility] GFR/1.73 sq M.predicted CKD-EPI (S/P/Bld) [Vol rate/Area] 69 >=60 mL/min/1.73m2 [facility] Comment on above: Reported eGFR is bas ed on the CKD-EPI 2020 equation using creatinine, age, and sex. Glucose [Mass/Vol] 83 mg/dL 70 - 99 mg/dL [facility] Osmolality Calc [Osmolality] 295 [facility] Potassium [Moles/Vol] 3.8 mmol/L 3.5 - 5.0 mmol/L [facility] Sodium [Moles/Vol] 141 mmol/L 135 - 145 mmol/L [facility] Urea nitrogen [Mass/Vol] 18 mg/dL 7 - 25 mg/dL [facility] Urea nitrogen/Creatinine [Mass ratio] 14 mg/mg [facility] GGTon 06-12-2022 Gamma glutamyl transferase [Catalytic activity/Vol] 20 U/L 8 - 64 U/L [facility] HEMOGLOBIN [id number] By: [employer] on 06-12-2022 Average glucose Estimated from glycated hemoglobin (Bld) [Mass/Vol] 126 mg/dL [facility] HbA1c (Bld) [Mass fraction] 6.0 % High 4.7 - 5.6 % [facility] Interpretation and review of laboratory results Abnormal [facility] HEPATIC FUNCTION PANELon Albumin [Mass/Vol] 4.3 g/dL 3.5 - 5.0 g/dL [facility] ALP [Catalytic activity/Vol] 78 U/L 32 - 126 U/L [facility] ALT [Catalytic activity/Vol] 12 U/L 10 - 52 U/L [facility] AST [Catalytic activity/Vol] 16 U/L 10 - 39 U/L [facility] Bilirubin [Mass/Vol] 1.0 mg/dL <1.5 [facility] Bilirubin.direct [Mass/Vol] 0.2 mg/dL <0.3 [facility] Protein [Mass/Vol] 7.5 g/dL 6.4 - 8.3 g/dL [facility] No Panel Informationon 06-12 Interpretation and review of laboratory results Normal [facility] PTH INTACTOrdered By: Marli Lizarraga on 06-12-2022 Interpretation and review of laboratory results Abnormal [facility] Parathyrin.intact [Mass/Vol] 79.7 pg/mL High 14.0 - 72.0 pg/mL [facility] URINALYSIS REFLEX TO CULTURE PERFORMABLEon 06-12-2022 Appearance (U) Clear Clear [facility] Bacteria LM Ql (Urine sed) ABSENT ABSENT [facility] Color (U) Yellow Yellow [facility] Epithelial cells.squamous LM Ql (Urine sed) 1/hpf = 1+ 1/hpf = 1+, 2-5/hpf = 2+, 0/hpf = 0+, ABSENT [facility] Glucose Test strip (U) [Mass/Vol] Negative Negative [facility] Interpretation and review of laboratory results Abnormal [facility] Ketones (U) [Mass/Vol] Trace Abnormal Negative [facility] Leukocyte esterase Test strip Ql (U) Small Abnormal Negative [facility] Nitrite Ql (U) Negative Negative [facility] pH (U) 5.5 [pH] 5.0 - 7.0 [facility] Protein (U) [Mass/Vol] 30 mg/dL Abnormal Negative [facility] RBC (U) [#/Vol] Trace Abnormal Negative [facility] RBC LM.HPF (Urine sed) [#/Area] 0-2 0 - 2 /HPF [facility] Specific gravity (U) [Rel density] 1.026 [facility] Urobilinogen (U) [Mass/Vol] 0.2 E.U./dL 0.2 E.U/dL, 1.0 E.U/dL [facility] WBC LM.HPF (Urine sed) [#/Area] 10-20 Abnormal 0 - 5 /HPF [facility] PROTEIN/CREA RATIO, RA NDOMon 06-12-2022 Creatinine (24H U) [Mass/Vol] 231.68 mg/dL [facility] Protein Unsp time (U) [Mass/Vol] 49 mg/dL [facility] Protein/Creatinine (U) [Mass ratio] 0.211 mg/g [facility] FK506 (TACROLIMUS) WHOLE BLO ODon 06-09-2022 Tacrolimus (FK506), Blood 9.8 ng/mL Normal 2.0-20.0 [facility] Comment on above: Result Comment: Trou gh (immediately following transplant) 15.0 . Trough (steady state, 2 weeks or more after transplant): 3.0 - 8.0 . Performed by LC-MS/MS technology. Performed By: #### U RTPCR #### [facility] [address] [place] [address] Dr. Dwight Waters ALBUMINon 06-06-2022 Albumin [Mass/Vol] 3.8 g/dL Normal 3.4-5.0 [facility] Comment on above: Performed By: #### C MP #### [facility] [address] [address] [address] Dwight Waters ALKALINE PHOSPHAon ALP [Catalytic activity/Vol] 82 U/L Normal 46-116 [facility] Comment on above: Performed By: #### C MP #### [facility] [address] [place] [address] Dr. Dwight Waters BILIRUBIN CONJUGATED (DIRECT )on 06-06-2022 BILI, CONJUGATED 0.2 mg/dL Normal 0.0-0.[address] [facility] Comment on above: Performed By: #### C BC #### [facility] [address] [place] [address] Dr. Dwight Waters BILIRUBIN TOTALon 06-06-2022 Bilirubin [Mass/Vol] 1.0 mg/dL Normal 0.2-1.0 [facility] Comment on above: Performed By: #### C BC #### [facility] [address] [place] [address] Dr. Dwight Waters BUNon 06-06-2022 Urea nitrogen [Mass/Vol] 18.0 mg/dL Normal 7.0-18.0 [facility] Comment on above: Performed By: #### C BC #### [facility] [address] [place] [address] Dr. Dwight Waters CALCIUMon 06-06-2022 Calcium [Mass/Vol] 9.4 mg/dL Normal 8.5-10.1 [facility] Comment on above: Performed By: #### C MP #### [facility] [address] [place] [address] Dr. Dwight Waters CBC AUTO DIFFon 06-06-2022 BASO # 0.1 103/ul Normal 0.0-0.1 [facility] Comment on above: Performed By: #### U RTPCR #### [facility] [address] [place] [address] Dr. Dwight Waters Basophils/100 WBC (Bld) 0.8 % Normal 0.2-2.0 [facility] Comment on above: Performed By: #### U RTPCR #### [facility] [address] [place] [address] Dr. Dwight Waters EO # 0.3 103/ul Normal 0.0-0.7 [facility] Comment on above: Performed By: #### U RTPCR #### [facility] [address] [place] [address] Dr. Dwight Waters Eosinophils/100 WBC (Bld) 3.3 % Normal 0.9-7.0 [facility] Comment on above: Performed By: #### U RTPCR #### [facility] [address] [place] [address] Dr. Dwight Waters Erythrocyte distribution width (RBC) [Ratio] 12.4 % Normal 11.0-15.0 [facility] Comment on above: Performed By: #### U RTPCR #### [facility] [address] [place] [address] Dr. Dwight Waters Hematocrit (Bld) [Volume fraction] 45.1 % Normal 42.0-54.0 [facility] Comment on above: Performed By: #### U RTPCR #### [facility] [address] [place] [address] Dr. Dwight Waters Hemoglobin (Bld) [Mass/Vol] 14.4 g/dL Normal 14.0-18.0 [facility] Comment on above: Performed By: #### U RTPCR #### [facility] [address] [place] [address] Dr. Dwight Waters IG # 0.01 10e3/ul Normal 0.00-0.03 [facility] Comment on above: Performed By: #### U RTPCR #### [facility] [address] [place] [address] Dr. Dwight Waters IG % 0.1 % Normal 0.0-0.5 [facility] Comment on above: Performed By: #### U RTPCR #### [facility] [address] [place] [address] Dr. Dwight Waters LYMPH # 2.2 103/ul Normal 1.2-3.8 [facility] Comment on above: Performed By: #### U RTPCR #### [facility] [address] [place] [address] Dr. Dwight Waters Lymphocytes/100 WBC (Bld) 30.0 % Normal 20.5-60.0 [facility] Comment on above: Performed By: #### U RTPCR #### [facility] [address] [place] [address] Dr. Dwight Waters MANUAL DIFF REQ NO Normal [facility] Comment on above: Performed By: #### U RTPCR #### [facility] [address] [place] [address] Dr. wDight Waters MCH (RBC) [Entitic mass] 28.2 pg Normal 25.9-34.0 [facility] Comment on above: Performed By: #### U RTPCR #### [facility] [address] [place] [address] Dr. Dwight Waters MCHC (RBC) [Mass/Vol] 31.9 g/dL Normal 29.9-35.2 [facility] Comment on above: Performed By: #### U RTPCR #### [facility] [address] [place] [address] Dr. Dwight Waters MCV (RBC) [Entitic vol] 88.3 fL Normal 80.0-94.0 [facility] Comment on above: Performed By: #### U RTPCR #### [facility] [address] [place] [address] Dr. Dwight Waters MONO # 0.6 103/ul Normal 0.3-0.8 [facility] Comment on above: Performed By: #### U RTPCR #### [facility] [address] [place] [address] Dr. Dwight Waters Monocytes/100 WBC (Bld) 8.2 % Normal 1.7-12.0 [facility] Comment on above: Performed By: #### U RTPCR #### [facility] [address] [place] [address] Dr. Dwight Waters NEUT # 4.3 103/ul Normal 1.4-6.5 [facility] Comment on above: Performed By: #### U RTPCR #### [facility] [address] [place] [address] Dr. Dwight Waters Neutrophils/100 WBC (Bld) 57.6 % Normal 43.0-75.0 [facility] Comment on above: Performed By: #### U RTPCR #### [facility] [address] [place] [address] Dr. Dwight Waters Platelet mean volume (Bld) [Entitic vol] 9.7 fL Normal 9.5-13.5 [facility] Comment on above: Performed By: #### U RTPCR #### [facility] [address] [place] [address] Dr. Dwight Waters PLT 297 103/ul Normal 150-450 [facility] Comment on above: Performed By: #### U RTPCR #### [facility] [address] [place] [address] Dr. Dwight Waters RBC 5.11 106/ul Normal 4.70-6.10 [facility] Comment on above: Performed By: #### U RTPCR #### [facility] [address] [place] [address] Dr. Dwight Waters WBC 7.5 103/ul Normal 4.0-11.0 [facility] Comment on above: Performed By: #### U RTPCR #### [facility] [address] [place] [address] Dr. Dwight Waters CHLORIDEon 06-06-2022 Chloride [Moles/Vol] 107 mmol/L Normal 98-107 [facility] Comment on above: Performed By: #### C BC #### [facility] [address] [place] [address] Dr. Dwight Waters CO2on 06-06-2022 CO2 [Moles/Vol] 27.4 mmol/L Normal 21.0-32.0 [facility] Comment on above: Performed By: #### C BC #### [facility] [address] [place] [address] Dr. Dwight Waters CREATININEon 06-06-2022 Creatinine [Mass/Vol] 1.20 mg/dL Normal 0.70-1.30 [facility] Comment on above: Performed By: #### C BC #### [facility] [address] [place] [address] Dr. Dwight Waters EGFR-AF QATARI >60 Normal >=60 [facility] Comment on above: Performed By: #### C BC #### [facility] [address] [place] [address] Dr. Dwight Waters EGFR-NON AF QATARI >60 Normal >=60 [facility] Comment on above: Performed By: #### C BC #### [facility] [address] [place] [address] Dr. Dwight Waters GGTon 06-06-2022 Gamma glutamyl transferase [Catalytic activity/Vol] 29 U/L Normal 15-85 [facility] Comment on above: Performed By: #### C BC #### [facility] [address] [place] [address] Dr. Dwight Waters GLUCOSE BLOODon 06-06-2022 Glucose [Mass/Vol] 112 mg/dL Critically high 74-106 [facility] Comment on above: Performed By: #### C BC #### [facility] [address] [place] [address] Dr. Dwight Waters MAGNESIUMon 06-06-2022 Magnesium [Mass/Vol] 1.3 mg/dL Critically low 1.8-2.4 [facility] Comment on above: Performed By: #### C MP #### [facility] [address] [place] [address] Dr. Dwight Waters NAon 06-06-2022 Sodium [Moles/Vol] 141 mmol/L Normal 136-145 [facility] Comment on above: Performed By: #### C MP #### [facility] [address] [place] [address] Dr. Dwight Waters PHOSPHORUSon 06-06-2022 Phosphate [Mass/Vol] 3.1 mg/dL Normal 2.6-4.7 [facility] Comment on above: Performed By: #### C MP #### [facility] [address] [place] [address] Dr. Dwight Waters POTASSIUMon 06-06-2022 Potassium [Moles/Vol] 4.3 mmol/L Normal 3.5-5.1 [facility] Comment on above: Performed By: #### C BC #### [facility] [address] [place] [address] Dr. Dwight Waters SGOTon 06-06-2022 AST [Catalytic activity/Vol] 16 U/L Normal 15-37 [facility] Comment on above: Performed By: #### C BC #### [facility] [address] [place] [address] Dr. Dwight Waters SGPTon 06-06-2022 ALT [Catalytic activity/Vol] 50 U/L Normal 16-63 [facility] Comment on above: Performed By: #### C BC #### [facility] [address] [address] [address] Dwight Waters Bacteria identified Cx Nom ( Bld)on 05-21-2022 Bacteria identified Cx Nom (Unsp spec) NO GROWTH DAY 5 OF 5 [facility] Results may be compromised due to volume of BACT\ALERT bottle exceeding 10mLs . The optimal blood volume is 8-10 mls per aerobic/anaerobic blood culture bottle. [facility] CALCIUMon 05-20-2022 Calcium [Mass/Vol] 9.1 mg/dL 8.6 - 10. 5 mg/dL [facility] CBC,PLATELETSon 05-20-2022 Erythrocyte distribution width (RBC) [Ratio] 12.5 % 10.9 - 14.3 % [facility] Hematocrit (Bld) [Volume fraction] 37.1 % Low 39.6 - 48.8 % [facility] Hemoglobin (Bld) [Mass/Vol] 12.3 g/dL Low 13.4 - 16.8 g/dL [facility] Interpretation and review of laboratory results Abnormal [facility] MCH (RBC) [Entitic mass] 28.9 pg 26.1 - 33.3 pg [facility] MCHC (RBC) [Mass/Vol] 33.2 g/dL 31.9 - 36.5 g/dL [facility] MCV (RBC) [Entitic vol] 87.3 fL 79.0 - 94.5 fL [facility] Platelet mean volume (Bld) [Entitic vol] 9.9 fL 8.7 - 12.3 fL [facility] Platelets (Bld) [#/Vol] 234 10*3/uL 146 - 337 K/uL [facility] RBC (Bld) [#/Vol] 4.25 10*6/uL Low [facility] WBC (Bld) [#/Vol] 6.31 10*3/uL 3.73 - 10. 10 K/uL [facility] CHEM 7 (LYTES,BUN,CREA,GLUC) on 05-20-2022 Anion gap [Moles/Vol] 15 mmol/L 7 - 17 mmol/L [facility] Chloride [Moles/Vol] 111 mmol/L High 98 - 10 8 mmol/L [facility] CO2 [Moles/Vol] 22 mmol/L 21 - 31 mmol/L [facility] Creatinine [Mass/Vol] 1.10 mg/dL 0.70 - 1.30 mg[facility] GFR/1.73 sq M.predicted CKD-EPI (S/P/Bld) [Vol rate/Area] 81 >=60 mL/min/1.73m2 [facility] Comment on above: Reported eGFR is bas ed on the CKD-EPI 2020 equation using creatinine, age, and sex. Glucose [Mass/Vol] 92 mg/dL 70 - 99 mg/dL [facility] Interpretation and review of laboratory results Abnormal [facility] Osmolality Calc [Osmolality] 302 [facility] Potassium [Moles/Vol] 4.4 mmol/L 3.5 - 5.0 mmol/L [facility] Sodium [Moles/Vol] 144 mmol/L 135 - 145 mmol/L [facility] Urea nitrogen [Mass/Vol] 18 mg/dL 7 - 25 mg/dL [facility] Urea nitrogen/Creatinine [Mass ratio] 16 mg/mg [facility] MAGNESIUMon 05-20-2022 Interpretation and review of laboratory results Abnormal [facility] Magnesium [Mass/Vol] 1.5 mg/dL Low 1.6 - 2 .6 mg/dL [facility] No Panel Informationon 05-20 Interpretation and review of laboratory results Normal [facility] PHOSPHATE, INORGANICon 05-20 Phosphate [Mass/Vol] 3.3 mg/dL 2.2 - 4 .6 mg/dL [facility] RF Unspecified body region V iews [...] projections of kidneys, ureters, and bladder. FINDINGS: Stewardess Supervisor images: Stewardess Supervisor radiographs of the abdomen reveal a [...] Contrast refluxes up the ureter to the [place] right kidney that is grossly normal appearing. [...] projections of kidneys, ureters, and bladder. FINDINGS: Stewardess Supervisor images: Stewardess Supervisor radiographs of the abdomen reveal a [...] Contrast refluxes up the ureter to the [place] right kidney that is grossly normal appearing. [...] I have reviewed and approved this report. [facility] Radiology Study observation (narrative) [facility] RF Unspecified body region V iews during surgeryOrdered By: Lizz Campos on 05-20-2022 [facility] Work Phone: CALCIUMon 05-19-2022 Calcium [Mass/Vol] 9.2 mg/dL 8.6 - 10. 5 mg/dL [facility] Calcium [Mass/Vol] 8.6 mg/dL 8.6 - 10. 5 mg/dL [facility] CBC,PLATELETSon 05-19-2022 Erythrocyte distribution width (RBC) [Ratio] 12.4 % 10.9 - 14.3 % [facility] Hematocrit (Bld) [Volume fraction] 38.0 % Low 39.6 - 48.8 % [facility] Hemoglobin (Bld) [Mass/Vol] 12.0 g/dL Low 13.4 - 16.8 g/dL [facility] Interpretation and review of laboratory results Abnormal [facility] MCH (RBC) [Entitic mass] 28.6 pg 26.1 - 33.3 pg [facility] MCHC (RBC) [Mass/Vol] 31.6 g/dL Low 31.9 - 36.5 g/dL [facility] MCV (RBC) [Entitic vol] 90.5 fL 79.0 - 94.5 fL [facility] Platelet mean volume (Bld) [Entitic vol] 9.7 fL 8.7 - 12.3 fL [facility] Platelets (Bld) [#/Vol] 199 10*3/uL 146 - 337 K/uL [facility] RBC (Bld) [#/Vol] 4.20 10*6/uL [facility] WBC (Bld) [#/Vol] 6.81 10*3/uL 3.73 - 10. 10 K/uL [facility] CHEM 7 (LYTES,BUN,CREA,GLUC) on 05-19-2022 Anion gap [Moles/Vol] 13 mmol/L 7 - 17 mmol/L [facility] Chloride [Moles/Vol] 105 mmol/L 98 - 10 8 mmol/L [facility] CO2 [Moles/Vol] 30 mmol/L 21 - 31 mmol/L [facility] Creatinine [Mass/Vol] 1.39 mg/dL High 0.70 - 1.30 mg/dL [facility] GFR/1.73 sq M.predicted CKD-EPI (S/P/Bld) [Vol rate/Area] 61 >=60 mL/min/1.73m2 [facility] Comment on above: Reported eGFR is bas ed on the CKD-EPI 2020 equation using creatinine, age, and sex. Glucose [Mass/Vol] 121 mg/dL High 70 - 99 mg/dL [facility] Interpretation and review of laboratory results Abnormal [facility] Osmolality Calc [Osmolality] 303 [facility] Potassium [Moles/Vol] 3.8 mmol/L 3.5 - 5.0 mmol/L [facility] Sodium [Moles/Vol] 144 mmol/L 135 - 145 mmol/L [facility] Urea nitrogen [Mass/Vol] 18 mg/dL 7 - 25 mg/dL [facility] Urea nitrogen/Creatinine [Mass ratio] 13 mg/mg [facility] Anion gap [Moles/Vol] 15 mmol/L 7 - 17 mmol/L [facility] Chloride [Moles/Vol] 106 mmol/L 98 - 10 8 mmol/L [facility] CO2 [Moles/Vol] 24 mmol/L 21 - 31 mmol/L [facility] Creatinine [Mass/Vol] 1.46 mg/dL High 0.70 - 1.30 mg/dL [facility] GFR/1.73 sq M.predicted CKD-EPI (S/P/Bld) [Vol rate/Area] 58 Low >=60 mL/min/1.73m2 [facility] Comment on above: Reported eGFR is bas ed on the CKD-EPI 2020 equation using creatinine, age, and sex. Glucose [Mass/Vol] 103 mg/dL High 70 - 99 mg/dL [facility] Interpretation and review of laboratory results Abnormal [facility] Osmolality Calc [Osmolality] 298 [facility] Potassium [Moles/Vol] 3.9 mmol/L 3.5 - 5.0 mmol/L [facility] Sodium [Moles/Vol] 141 mmol/L 135 - 145 mmol/L [facility] Urea nitrogen [Mass/Vol] 21 mg/dL 7 - 25 mg/dL [facility] Urea nitrogen/Creatinine [Mass ratio] 14 mg/mg [facility] MAGNESIUMon 05-19-2022 Magnesium [Mass/Vol] 2.0 mg/dL 1.6 - 2 .6 mg/dL [facility] Magnesium [Mass/Vol] 1.7 mg/dL 1.6 - 2 .6 mg/dL [facility] No Panel Informationon 05-19 Interpretation and review of laboratory results Normal [facility] Interpretation and review of laboratory results Normal [facility] PHOSPHATE, INORGANICon 05-19 Phosphate [Mass/Vol] 3.0 mg/dL 2.2 - 4 .6 mg/dL [facility] Phosphate [Mass/Vol] 2.7 mg/dL 2.2 - 4 .6 mg/dL [facility] CALCIUMon 05-18-2022 Calcium [Mass/Vol] 9.1 mg/dL 8.6 - 10. 5 mg/dL [facility] CBC,PLATELETSon 05-18-2022 Erythrocyte distribution width (RBC) [Ratio] 12.5 % 10.9 - 14.3 % [facility] Hematocrit (Bld) [Volume fraction] 37.3 % Low 39.6 - 48.8 % [facility] Hemoglobin (Bld) [Mass/Vol] 11.9 g/dL Low 13.4 - 16.8 g/dL [facility] Interpretation and review of laboratory results Abnormal [facility] MCH (RBC) [Entitic mass] 28.9 pg 26.1 - 33.3 pg [facility] MCHC (RBC) [Mass/Vol] 31.9 g/dL 31.9 - 36.5 g/dL [facility] MCV (RBC) [Entitic vol] 90.5 fL 79.0 - 94.5 fL [facility] Platelet mean volume (Bld) [Entitic vol] 10.1 fL 8.7 - 12.3 fL [facility] Platelets (Bld) [#/Vol] 189 10*3/uL 146 - 337 K/uL [facility] RBC (Bld) [#/Vol] 4.12 10*6/uL Low [facility] WBC (Bld) [#/Vol] 10.19 10*3/uL High 3.73 - 10 .10 K/uL [facility] CHEM 7 (LYTES,BUN,CREA,GLUC) on 05-18-2022 Anion gap [Moles/Vol] 13 mmol/L 7 - 17 mmol/L [facility] Chloride [Moles/Vol] 102 mmol/L 98 - 10 8 mmol/L [facility] CO2 [Moles/Vol] 26 mmol/L 21 - 31 mmol/L [facility] Creatinine [Mass/Vol] 1.91 mg/dL High 0.70 - 1.30 mg/dL [facility] GFR/1.73 sq M.predicted CKD-EPI (S/P/Bld) [Vol rate/Area] 42 Low >=60 mL/min/1.73m2 [facility] Comment on above: Reported eGFR is bas ed on the CKD-EPI 2020 equation using creatinine, age, and sex. Glucose [Mass/Vol] 158 mg/dL High 70 - 99 mg/dL [facility] Osmolality Calc [Osmolality] 297 [facility] Potassium [Moles/Vol] 4.0 mmol/L 3.5 - 5.0 mmol/L [facility] Sodium [Moles/Vol] 137 mmol/L 135 - 145 mmol/L [facility] Urea nitrogen [Mass/Vol] 30 mg/dL High 7 - 25 mg/dL [facility] Urea nitrogen/Creatinine [Mass ratio] 16 mg/mg [facility] CHEM 7 (LYTES,BUN,CREA,GLUC) Ordered By: Tamiko Thapa on 05-18-2022 Anion gap [Moles/Vol] 13 mmol/L 7 - 17 mmol/L [facility] Chloride [Moles/Vol] 104 mmol/L 98 - 10 8 mmol/L [facility] CO2 [Moles/Vol] 26 mmol/L 21 - 31 mmol/L [facility] Creatinine [Mass/Vol] 2.96 mg/dL High 0.70 - 1.30 mg/dL [facility] GFR/1.73 sq M.predicted CKD-EPI (S/P/Bld) [Vol rate/Area] 25 Low >=60 mL/min/1.73m2 [facility] Comment on above: Reported eGFR is bas ed on the CKD-EPI 2020 equation using creatinine, age, and sex. Glucose [Mass/Vol] 136 mg/dL High 70 - 99 mg/dL [facility] Interpretation and review of laboratory results Abnormal [facility] Osmolality Calc [Osmolality] 304 [facility] Potassium [Moles/Vol] 4.2 mmol/L 3.5 - 5.0 mmol/L [facility] Sodium [Moles/Vol] 139 mmol/L 135 - 145 mmol/L [facility] Urea nitrogen [Mass/Vol] 41 mg/dL High 7 - 25 mg/dL [facility] Urea nitrogen/Creatinine [Mass ratio] 14 mg/mg [facility] MAGNESIUMon 05-18-2022 Magnesium [Mass/Vol] 2.2 mg/dL 1.6 - 2 .6 mg/dL [facility] Interpretation and review of laboratory results Normal [facility] Magnesium [Mass/Vol] 1.7 mg/dL 1.6 - 2 .6 mg/dL [facility] No Panel Informationon 05-18 Interpretation and review of laboratory results Abnormal [facility] Interpretation and review of laboratory results Normal [facility] PHOSPHATE, INORGANICon 05-18 Phosphate [Mass/Vol] 2.0 mg/dL Low 2.2 - 4 .6 mg/dL [facility] Interpretation and review of laboratory results Normal [facility] Phosphate [Mass/Vol] 2.8 mg/dL 2.2 - 4 .6 mg/dL [facility] PT,INR,PTTon 05-18-2022 aPTT Coag (PPP) [Time] 31.0 s [facility] INR Coag (Bld) [Relative time] 1.1 {INR} [facility] Interpretation and review of laboratory results Abnormal [facility] PT Coag (PPP) [Time] 14.4 s High [facility] URINE CULTUREOrdered By: Sylvia Campos on 05-18-2022 Bacteria identified Cx Nom (Unsp spec) No Growth [facility] CBC,PLATELETSon 05-17-2022 Erythrocyte distribution width (RBC) [Ratio] 12.8 % 10.9 - 14.3 % [facility] Hematocrit (Bld) [Volume fraction] 42.8 % 39.6 - 48.8 % [facility] Hemoglobin (Bld) [Mass/Vol] 13.3 g/dL Low 13.4 - 16.8 g/dL [facility] Interpretation and review of laboratory results Abnormal [facility] MCH (RBC) [Entitic mass] 28.9 pg 26.1 - 33.3 pg [facility] MCHC (RBC) [Mass/Vol] 31.1 g/dL Low 31.9 - 36.5 g/dL [facility] MCV (RBC) [Entitic vol] 92.8 fL 79.0 - 94.5 fL [facility] Platelet mean volume (Bld) [Entitic vol] 10.3 fL 8.7 - 12.3 fL [facility] Platelets (Bld) [#/Vol] 188 10*3/uL 146 - 337 K/uL [facility] RBC (Bld) [#/Vol] 4.61 10*6/uL [facility] WBC (Bld) [#/Vol] 16.61 10*3/uL High 3.73 - 10 .10 K/uL [facility] CHEM 7 (LYTES,BUN,CREA,GLUC) Ordered By: Kaylah Mc on 05-17-2022 Anion gap [Moles/Vol] 15 mmol/L 7 - 17 mmol/L [facility] Chloride [Moles/Vol] 103 mmol/L 98 - 10 8 mmol/L [facility] CO2 [Moles/Vol] 23 mmol/L 21 - 31 mmol/L [facility] Creatinine [Mass/Vol] 5.95 mg/dL High 0.70 - 1.30 mg/dL [facility] GFR/1.73 sq M.predicted CKD-EPI (S/P/Bld) [Vol rate/Area] 11 Low >=60 mL/min/1.73m2 [facility] Comment on above: Reported eGFR is bas ed on the CKD-EPI 2020 equation using creatinine, age, and sex. Glucose [Mass/Vol] 165 mg/dL High 70 - 99 mg/dL [facility] Interpretation and review of laboratory results Abnormal [facility] Osmolality Calc [Osmolality] 305 [facility] Potassium [Moles/Vol] 4.6 mmol/L 3.5 - 5.0 mmol/L [facility] Sodium [Moles/Vol] 136 mmol/L 135 - 145 mmol/L [facility] Urea nitrogen [Mass/Vol] 52 mg/dL High 7 - 25 mg/dL [facility] Urea nitrogen/Creatinine [Mass ratio] 9 mg/mg [facility] CHEM 7 (LYTES,BUN,CREA,GLUC) Ordered By: Kehinde Gutierrez on 05-17-2022 Anion gap [Moles/Vol] 24 mmol/L High 7 - 17 mmol/L [facility] Chloride [Moles/Vol] 100 mmol/L 98 - 10 8 mmol/L [facility] CO2 [Moles/Vol] 16 mmol/L Low 21 - 31 mmol/L [facility] Creatinine [Mass/Vol] 8.08 mg/dL High 0.70 - 1.30 mg/dL [facility] GFR/1.73 sq M.predicted CKD-EPI (S/P/Bld) [Vol rate/Area] 7 Low >=60 mL/min/1.73m2 [facility] Comment on above: Reported eGFR is bas ed on the CKD-EPI 1 equation using creatinine, age, and sex. Glucose [Mass/Vol] 164 mg/dL High 70 - 99 mg/dL [facility] Interpretation and review of laboratory results Abnormal [facility] Osmolality Calc [Osmolality] 305 [facility] Potassium [Moles/Vol] 5.0 mmol/L 3.5 - 5.0 mmol/L [facility] Sodium [Moles/Vol] 135 mmol/L 135 - 145 mmol/L [facility] Urea nitrogen [Mass/Vol] 56 mg/dL High 7 - 25 mg/dL [facility] Urea nitrogen/Creatinine [Mass ratio] 7 mg/mg [facility] LAVENDER TOP TUBEon 05-17-20 [facility] MAGNESIUMon 05-17-2022 Interpretation and review of laboratory results Normal [facility] Magnesium [Mass/Vol] 1.8 mg/dL 1.6 - 2 .6 mg/dL [facility] Interpretation and review of laboratory results Normal [facility] Magnesium [Mass/Vol] 1.6 mg/dL 1.6 - 2 .6 mg/dL [facility] No Panel Informationon 05-17 [facility] PHOSPHATE, INORGANICon 05-17 Interpretation and review of laboratory results Abnormal [facility] Phosphate [Mass/Vol] 4.9 mg/dL High 2.2 - 4 .6 mg/dL [facility] PT,INR,PTTon 05-17-2022 aPTT Coag (PPP) [Time] 33.0 s [facility] INR Coag (Bld) [Relative time] 1.3 {INR} High [facility] Interpretation and review of laboratory results Abnormal [facility] PT Coag (PPP) [Time] 15.7 s High [facility] Portable XR Chest Viewson IMPRESSION: No [...] Stable cardiomegaly. IMPRESSION IMPRESSION: No acute findings. [facility] Radiology Study observation (narrative) [facility] Portable XR Chest ViewsOrder ed By: Raheem Sanz on 05-17-2022 [facility] Work Phone: URINALYSISOrdered By: Michael patel Ma on 05-17-2022 Appearance (U) Cloudy Abnormal Clear [facility] Comment on above: Results may be inacc urate due to color interference. Clinical correlation recommended. Bacteria LM Ql (Urine sed) ABSENT ABSENT [facility] Color (U) Red Abnormal Yellow [facility] Comment on above: Results may be inacc urate due to color interference. Clinical correlation recommended. Epithelial cells.squamous LM Ql (Urine sed) ABSENT 1/hpf = 1+, 2-5/hpf = 2+, 0/hpf = 0+, ABSENT [facility] Glucose Test strip (U) [Mass/Vol] Negative Negative [facility] Comment on above: Results may be inacc urate due to color interference. Clinical correlation recommended. Interpretation and review of laboratory results Abnormal [facility] Ketones (U) [Mass/Vol] Trace Abnormal Negative [facility] Comment on above: Results may be inacc urate due to color interference. Clinical correlation recommended. Leukocyte esterase Test strip Ql (U) Large Abnormal Negative [facility] Comment on above: Results may be inacc urate due to color interference. Clinical correlation recommended. Nitrite Ql (U) Negative Negative [facility] Comment on above: Results may be inacc urate due to color interference. Clinical correlation recommended. pH (U) 5.0 [pH] 5.0 - 7.0 [facility] Comment on above: Results may be inacc urate due to color interference. Clinical correlation recommended. Protein (U) [Mass/Vol] mg/dL Abnormal Negative [facility] Comment on above: Results may be inacc urate due to color interference. Clinical correlation recommended. RBC (U) [#/Vol] Large Abnormal Negative [facility] Comment on above: Results may be inacc urate due to color interference. Clinical correlation recommended. RBC LM.HPF (Urine sed) [#/Area] /[HPF] Abnormal 0 - 2 /HPF [facility] Specific gravity (U) [Rel density] 1.016 [facility] Comment on above: Results may be inacc urate due to color interference. Clinical correlation recommended. Urobilinogen (U) [Mass/Vol] 0.2 E.U./dL 0.2 E.U/dL, 1.0 E.U/dL [facility] Comment on above: Results may be inacc urate due to color interference. Clinical correlation recommended. WBC LM.HPF (Urine sed) [#/Area] /[HPF] Abnormal 0 - 5 /HPF [facility] URINE CULTUREOrdered By: Tyler Tiwari on 05-17-2022 Bacteria identified Cx Nom (Unsp spec) No Growth [facility] CBC,PLATELETSon 05-16-2022 Erythrocyte distribution width (RBC) [Ratio] 12.9 % 10.9 - 14.3 % [facility] Hematocrit (Bld) [Volume fraction] 46.5 % 39.6 - 48.8 % [facility] Hemoglobin (Bld) [Mass/Vol] 14.7 g/dL 13.4 - 16.8 g/dL [facility] Interpretation and review of laboratory results Abnormal [facility] MCH (RBC) [Entitic mass] 28.3 pg 26.1 - 33.3 pg [facility] MCHC (RBC) [Mass/Vol] 31.6 g/dL Low 31.9 - 36.5 g/dL [facility] MCV (RBC) [Entitic vol] 89.6 fL 79.0 - 94.5 fL [facility] Platelet mean volume (Bld) [Entitic vol] 10.3 fL 8.7 - 12.3 fL [facility] Platelets (Bld) [#/Vol] 188 10*3/uL 146 - 337 K/uL [facility] RBC (Bld) [#/Vol] 5.19 10*6/uL [facility] WBC (Bld) [#/Vol] 12.55 10*3/uL High 3.73 - 10 .10 K/uL [facility] CHEM 7 (LYTES,BUN,CREA,GLUC) Ordered By: Alma Pena on 05-16-2022 Anion gap [Moles/Vol] 14 mmol/L 7 - 17 mmol/L [facility] Chloride [Moles/Vol] 103 mmol/L 98 - 10 8 mmol/L [facility] CO2 [Moles/Vol] 22 mmol/L 21 - 31 mmol/L [facility] Creatinine [Mass/Vol] 6.09 mg/dL High 0.70 - 1.30 mg/dL [facility] GFR/1.73 sq M.predicted CKD-EPI (S/P/Bld) [Vol rate/Area] 10 Low >=60 mL/min/1.73m2 [facility] Comment on above: Reported eGFR is bas ed on the CKD-EPI 2020 equation using creatinine, age, and sex. Glucose [Mass/Vol] 134 mg/dL High 70 - 99 mg/dL [facility] Interpretation and review of laboratory results Abnormal [facility] Osmolality Calc [Osmolality] 298 [facility] Potassium [Moles/Vol] 4.9 mmol/L 3.5 - 5.0 mmol/L [facility] Sodium [Moles/Vol] 134 mmol/L Low 135 - 145 mmol/L [facility] Comment on above: Results inconsistent with previous results Urea nitrogen [Mass/Vol] 49 mg/dL High 7 - 25 mg/dL [facility] Urea nitrogen/Creatinine [Mass ratio] 8 mg/mg [facility] CHEM 7 (LYTES,BUN,CREA,GLUC) on 05-16-2022 Anion gap [Moles/Vol] 17 mmol/L 7 - 17 mmol/L [facility] Chloride [Moles/Vol] 106 mmol/L 98 - 10 8 mmol/L [facility] CO2 [Moles/Vol] 22 mmol/L 21 - 31 mmol/L [facility] Creatinine [Mass/Vol] 5.23 mg/dL High 0.70 - 1.30 mg/dL [facility] GFR/1.73 sq M.predicted CKD-EPI (S/P/Bld) [Vol rate/Area] 13 Low >=60 mL/min/1.73m2 [facility] Comment on above: Reported eGFR is bas ed on the CKD-EPI 2020 equation using creatinine, age, and sex. Glucose [Mass/Vol] 116 mg/dL High 70 - 99 mg/dL [facility] Interpretation and review of laboratory results Abnormal [facility] Osmolality Calc [Osmolality] 305 [facility] Potassium [Moles/Vol] 4.6 mmol/L 3.5 - 5.0 mmol/L [facility] Sodium [Moles/Vol] 140 mmol/L 135 - 145 mmol/L [facility] Urea nitrogen [Mass/Vol] 42 mg/dL High 7 - 25 mg/dL [facility] Urea nitrogen/Creatinine [Mass ratio] 8 mg/mg [facility] EXTRA MICROon 05-16-2022 [facility] LT BLUE TOP TUBEon 2 [facility] LYTES (NA, K, CL) - URINE - RANDOMon 05-16-2022 Chloride (24H U) [Moles/Vol] 68 mmol/L [facility] Potassium (24H U) [Moles/Vol] 36.7 mmol/L [facility] Sodium (24H U) [Moles/Vol] 55 mmol/L [facility] The reference range has not been established for random urine specimens. The test result should be integrated into the clinical context for interpretation. [facility] MAGNESIUMon 05-16-2022 Interpretation and review of laboratory results Normal [facility] Magnesium [Mass/Vol] 1.7 mg/dL 1.6 - 2 .6 mg/dL [facility] NOVEL CORONAVIRUS PCROrdered By: Edson Candelario on 05-16-2022 SARS-CoV-2 (COVID-19) RNA ESTELITA+probe Ql (Unsp spec) Not detected NOT DETECTED [facility] Comment on above: [facility] Negative results do [...] use authorization for use by authorized laboratories. [facility] No Panel Informationon 05-16 [facility] OSMOLALITY, URINEon 05-16-20 Interpretation and review of laboratory results Normal [facility] Osmolality (U) [Osmolality] 320 mosm/kg [facility] The reference range has not been established for random urine specimens. The test result should be integrated into the clinical context for interpretation. [facility] PROCALCITONINon 05-16-2022 Interpretation and review of laboratory results Normal [facility] Procalcitonin [Mass/Vol] 0.18 ng/mL <0.50 [facility] Comment on above: Procalcitonin is an [...] and trend procalcitonin in various clinical settings. [email or web address]/[email or web address] Two common cutoffs associated with bacterial infections are as follows. Respiratory tract infections: >0.25 ng/mL Sepsis/septic shock: >0.5 ng/mL Procalcitonin should not be used alone as a diagnostic tool, however. All procalcitonin results should be interpreted in association with the patients clinical condition and all laboratory findings. [facility] PT,INR,PTTon 05-16-2022 aPTT Coag (PPP) [Time] 30.3 s [facility] INR Coag (Bld) [Relative time] 1.1 {INR} [facility] Interpretation and review of laboratory results Normal [facility] PT Coag (PPP) [Time] 14.1 s [facility] SARS-CoV-2 (COVID-19) RNA NA A+probe Ql (Unsp spec)Ordered By: Edson Candelario on 05-16-2022 Interpretation and review of laboratory results Normal [facility] TACROLIMUS LEVEL, TROUGH (RI E DRUG LEVEL)Ordered By: Mariama Nick on 05-16-2022 Interpretation and review of laboratory results Normal [facility] Tacrolimus (Bld) [Mass/Vol] 4.1 ng/mL Bone Marrow Transplant: 4.0-12.0, Therapeutic: 5.0-15.0 [facility] Method performed is a chemiluminescent microparticle immunoasssay on the [employer] i2000. The range is based on experience at [facility] and users should be aware that target concentrations vary widely depending on concomitant therapy, time post-transplant, and desired degree of immunosuppression. [facility] URINE PROTEIN/CREA RATIO, RA Smiley 05-16-2022 Creatinine (24H U) [Mass/Vol] 59.82 mg/dL [facility] Protein Unsp time (U) [Mass/Vol] 111 mg/dL [facility] Protein/Creatinine (U) [Mass ratio] 1.856 mg/g [facility] US for transplanted kidney amber [...] appearing vascular flow in the transplant kidney. [facility] Radiology Study observation (narrative) [facility] US for transplanted kidney l imitedOrdered By: Rosendo Matute on 05-16-2022 [facility] Work Phone: CBC AND ELECTRONIC DIFFon Basophils (Bld) [#/Vol] 10*3/uL 0.00 - 0.09 K/uL [facility] Basophils/100 WBC (Bld) 0.2 % [facility] Differential cell count method Nom (Bld) Electronic Differential [facility] Eosinophils (Bld) [#/Vol] 10*3/uL 0.00 - 0.48 K/uL [facility] Eosinophils/100 WBC (Bld) 0.0 % [facility] Erythrocyte distribution width (RBC) [Ratio] 12.8 % 10.9 - 14.3 % [facility] Hematocrit (Bld) [Volume fraction] 46.0 % 39.6 - 48.8 % [facility] Hemoglobin (Bld) [Mass/Vol] 14.6 g/dL 13.4 - 16.8 g/dL [facility] Immature granulocytes (Bld) [#/Vol] 0.07 10*3/uL <=0.08 [facility] Immature granulocytes/100 WBC (Bld) 0.4 % [facility] Interpretation and review of laboratory results Abnormal [facility] Lymphocytes (Bld) [#/Vol] 1.49 10*3/uL 0.83 - 3.57 K/uL [facility] Lymphocytes/100 WBC (Bld) 9.4 % [facility] MCH (RBC) [Entitic mass] 28.2 pg 26.1 - 33.3 pg [facility] MCHC (RBC) [Mass/Vol] 31.7 g/dL Low 31.9 - 36.5 g/dL [facility] MCV (RBC) [Entitic vol] 89.0 fL 79.0 - 94.5 fL [facility] Monocytes (Bld) [#/Vol] 1.45 10*3/uL High 0.24 - 0.93 K/uL [facility] Monocytes/100 WBC (Bld) 9.2 % [facility] Neutrophils (Bld) [#/Vol] 12.77 10*3/uL High 1.57 - 6.19 K/uL [facility] Nucleated RBC/100 WBC (Bld) [Ratio] 0.0 % <=0.2 /100 WBC [facility] Platelet mean volume (Bld) [Entitic vol] 9.9 fL 8.7 - 12.3 fL [facility] Platelets (Bld) [#/Vol] 250 10*3/uL 146 - 337 K/uL [facility] RBC (Bld) [#/Vol] 5.17 10*6/uL [facility] Segmented neutrophils/100 WBC (Bld) 80.8 % [facility] WBC (Bld) [#/Vol] 15.81 10*3/uL High 3.73 - 10 .10 K/uL [facility] CBC AUTO DIFFon 05-15-2022 BASO # 0.0 103/ul Normal 0.0-0.1 [facility] Comment on above: Performed By: #### C BC #### [facility] [address] [place] [address] Dr. Dwight Waters Basophils/100 WBC (Bld) 0.3 % Normal 0.2-2.0 [facility] Comment on above: Performed By: #### C BC #### [facility] [address] [place] [address] Dr. Dwight Waters EO # 0.1 103/ul Normal 0.0-0.7 [facility] Comment on above: Performed By: #### C BC #### [facility] [address] [place] [address] Dr. Dwight Waters Eosinophils/100 WBC (Bld) 0.8 % Critically low 0.9-7.0 [facility] Comment on above: Performed By: #### C BC #### [facility] [address] [place] [address] Dr. Dwight Waters Erythrocyte distribution width (RBC) [Ratio] 12.7 % Normal 11.0-15.0 [facility] Comment on above: Performed By: #### C BC #### [facility] [address] [place] [address] Dr. Dwight Waters Hematocrit (Bld) [Volume fraction] 43.5 % Normal 42.0-54.0 [facility] Comment on above: Performed By: #### C BC #### [facility] [address] [place] [address] Dr. Dwight Waters Hemoglobin (Bld) [Mass/Vol] 14.4 g/dL Normal 14.0-18.0 [facility] Comment on above: Performed By: #### C BC #### [facility] [address] [place] [address] Dr. Dwight Waters IG # 0.02 10e3/ul Normal 0.00-0.03 [facility] Comment on above: Performed By: #### C BC #### [facility] [address] [place] [address] Dr. Dwight Waters IG % 0.2 % Normal 0.0-0.5 [facility] Comment on above: Performed By: #### C BC #### [facility] [address] [place] [address] Dr. Dwight Waters LYMPH # 1.5 103/ul Normal 1.2-3.8 [facility] Comment on above: Performed By: #### C BC #### [facility] [address] [place] [address] Dr. Dwight Waters Lymphocytes/100 WBC (Bld) 12.5 % Critically low 20.5-60.0 [facility] Comment on above: Performed By: #### C BC #### [facility] [address] [place] [address] Dr. Dwight Waters MANUAL DIFF REQ NO Normal [facility] Comment on above: Performed By: #### C BC #### [facility] [address] [place] [address] Dr. Dwight Waters MCH (RBC) [Entitic mass] 28.6 pg Normal 25.9-34.0 [facility] Comment on above: Performed By: #### C BC #### [facility] [address] [address] [address] Dwight Waters MCHC (RBC) [Mass/Vol] 33.1 g/dL Normal 29.9-35.2 [facility] Comment on above: Performed By: #### C BC #### [facility] [address] [place] [address] Dr. Dwight Waters MCV (RBC) [Entitic vol] 86.3 fL Normal 80.0-94.0 [facility] Comment on above: Performed By: #### C BC #### [facility] [address] [place] [address] Dr. Dwight Waters MONO # 1.0 103/ul Critically high 0.3-0.8 [facility] Comment on above: Performed By: #### C BC #### [facility] [address] [place] [address] Dr. Dwight Waters Monocytes/100 WBC (Bld) 8.2 % Normal 1.7-12.0 [facility] Comment on above: Performed By: #### C BC #### [facility] [address] [place] [address] Dr. Dwight Waters NEUT # 9.1 103/ul Critically high 1.4-6.5 [facility] Comment on above: Performed By: #### C BC #### [facility] [address] [place] [address] Dr. Dwight Waters Neutrophils/100 WBC (Bld) 78.0 % Critically high 43.0-75.0 [facility] Comment on above: Performed By: #### C BC #### [facility] [address] [place] [address] Dr. Dwight Waters Platelet mean volume (Bld) [Entitic vol] 9.8 fL Normal 9.5-13.5 [facility] Comment on above: Performed By: #### C BC #### [facility] [address] [place] [address] Dr. Dwight Waters PLT 251 103/ul Normal 150-450 [facility] Comment on above: Performed By: #### C BC #### [facility] [address], [place] [address] Dr. Dwight Waters RBC 5.04 106/ul Normal 4.70-6.10 [facility] Comment on above: Performed By: #### C BC #### [facility] [address], [place] [address] Dr. Dwight Waters WBC 11.6 103/ul Critically high 4.0-11.[address] [facility] Comment on above: Performed By: #### C BC #### [facility] [address], [place] [address] Dr. Dwight Waters CHEM 6 (LYTES, BUN CREA)on 0 05-15-2022 Anion gap [Moles/Vol] 12 mmol/L 7 - 17 mmol/L [facility] Chloride [Moles/Vol] 105 mmol/L 98 - 10 8 mmol/L [facility] CO2 [Moles/Vol] 26 mmol/L 21 - 31 mmol/L [facility] Creatinine [Mass/Vol] 2.85 mg/dL High 0.70 - 1.30 mg/dL [facility] GFR/1.73 sq M.predicted CKD-EPI (S/P/Bld) [Vol rate/Area] 26 Low >=60 mL/min/1.73m2 [facility] Comment on above: Reported eGFR is bas ed on the CKD-EPI 2020 equation using creatinine, age, and sex. Potassium [Moles/Vol] 4.6 mmol/L 3.5 - 5.0 mmol/L [facility] Sodium [Moles/Vol] 138 mmol/L 135 - 145 mmol/L [facility] Urea nitrogen [Mass/Vol] 32 mg/dL High 7 - 25 mg/dL [facility] Urea nitrogen/Creatinine [Mass ratio] 11 mg/mg [facility] CT ABD/PELVIS WO CONon 05-15 [...] transplanted kidney with moderate right-sided hydronephrosis. Atrophic [place] kidneys with moderate right-sided hydronephrosis. Multiple nonobstructive [...] transplanted kidney with moderate right-sided hydronephrosis. Atrophic [place] kidneys with moderate right-sided hydronephrosis. Multiple nonobstructive right renal calculi measuring up to 8 mm. FOLLOW-UP: Follow-up as clinically indicated. Electronically authenticated by: LYNDSAY JEAN Date: 2022-05-15 05:04 Normal [facility] Covid-19 PCR (CVDTB)on 04-30 SARS-CoV-2 (COVID-19) RNA ESTELITA+probe Ql (Unsp spec) Not detected Normal NOT DETECTED [facility] Comment on above: Result Comment: When [...] for this test is supported by the [employer] and [employer]'s declaration that [...] used). Performed By: #### U RTPCR #### [facility] [address] [address] [address] Dwight Waters GLUCOSEon 05-15-2022 Glucose [Mass/Vol] 141 mg/dL High 70 - 99 mg/dL [facility] GOLD TOP TUBEon 05-15-2022 [facility] HEPATIC FUNCTION PANELon Albumin [Mass/Vol] 4.3 g/dL 3.5 - 5.0 g/dL [facility] ALP [Catalytic activity/Vol] 85 U/L 32 - 126 U/L [facility] ALT [Catalytic activity/Vol] 13 U/L 10 - 52 U/L [facility] AST [Catalytic activity/Vol] 15 U/L 10 - 39 U/L [facility] Bilirubin [Mass/Vol] 0.8 mg/dL <1.5 [facility] Bilirubin.direct [Mass/Vol] 0.2 mg/dL <0.3 [facility] Interpretation and review of laboratory results Normal [facility] Protein [Mass/Vol] 7.3 g/dL 6.4 - 8.3 g/dL [facility] LIPASEon 05-15-2022 Lipase [Catalytic activity/Vol] 8 U/L Low 11 - 82 U/L [facility] No Panel Informationon 05-15 Interpretation and review of laboratory results Abnormal [facility] PROF 14(COMP METB)on 022 Albumin [Mass/Vol] 3.8 g/dL Normal 3.4-5.0 [facility] Comment on above: Performed By: #### U RTPCR #### [facility] [address] [address] [address] Dwight Waters Albumin/Globulin [Mass ratio] 1.1 {ratio} Normal [facility] Comment on above: Performed By: #### U RTPCR #### [facility] [address] [address] [address] Dwight Waters ALP [Catalytic activity/Vol] 92 U/L Normal 46-116 [facility] Comment on above: Performed By: #### U RTPCR #### [facility] [address] [address] [address] Dwight Waters ALT [Catalytic activity/Vol] 25 U/L Normal 16-63 [facility] Comment on above: Performed By: #### U RTPCR #### [facility] [address] [address] [address] Dwight Waters Anion gap [Moles/Vol] 14.6 mmol/L Normal [facility] Comment on above: Performed By: #### U RTPCR #### [facility] [address] [address] [address] Dwight Waters AST [Catalytic activity/Vol] 17 U/L Normal 15-37 [facility] Comment on above: Performed By: #### U RTPCR #### [facility] [address] [address] [address] Dwight Waters Bilirubin [Mass/Vol] 0.6 mg/dL Normal 0.2-1.0 [facility] Comment on above: Performed By: #### U RTPCR #### [facility] [address] [address] [address] Dwight Waters Calcium [Mass/Vol] 9.9 mg/dL Normal 8.5-10.1 [facility] Comment on above: Performed By: #### U RTPCR #### [facility] [address] [address] [address] Dwight Waters Chloride [Moles/Vol] 106 mmol/L Normal 98-107 [facility] Comment on above: Performed By: #### U RTPCR #### [facility] [address] [address] [address] Dwight Waters CO2 [Moles/Vol] 24.2 mmol/L Normal 21.0-32.[address] [facility] Comment on above: Performed By: #### U RTPCR #### [facility] [address] [address] [address] Dwight Waters Creatinine [Mass/Vol] 1.58 mg/dL Critically high 0.70-1.30 [facility] Comment on above: Performed By: #### U RTPCR #### [facility] [address] [address] [address] Dwight Waters EGFR-AF QATARI 56 mL/min/1.73m2 Critically low >=60 [facility] Comment on above: Performed By: #### U RTPCR #### [facility] [address] [address] [address] Dwight Waters EGFR-NON AF QATARI 46 mL/min/1.73m2 Critically low >=60 [facility] Comment on above: Performed By: #### U RTPCR #### [facility] [address] [address] [address] Dwight Waters Globulin (S) [Mass/Vol] 3.5 g/dL Normal [facility] Comment on above: Performed By: #### U RTPCR #### [facility] [address] [address] [address] Dwight Waters Glucose [Mass/Vol] 162 mg/dL Critically high 74-106 [facility] Comment on above: Performed By: #### U RTPCR #### [facility] [address] [address] [address] Dwight Waters Potassium [Moles/Vol] 3.8 mmol/L Normal 3.5-5.1 [facility] Comment on above: Performed By: #### U RTPCR #### [facility] [address] [address] [address] Dwight Waters Protein [Mass/Vol] 7.3 g/dL Normal 6.4-8.2 [facility] Comment on above: Performed By: #### U RTPCR #### [facility] [address] [address] [address] Dwight Waters Sodium [Moles/Vol] 141 mmol/L Normal 136-145 [facility] Comment on above: Performed By: #### U RTPCR #### [facility] [address], [place] [address] Dr. Dwight Waters Urea nitrogen [Mass/Vol] 22.0 mg/dL Critically high 7.0-18.0 [facility] Comment on above: Performed By: #### U RTPCR #### [facility] [address], [place] [address] Dr. Dwight Waters Urea nitrogen/Creatinine [Mass ratio] 13.9 mg/mg Normal [facility] Comment on above: Performed By: #### U RTPCR #### [facility] [address], [place] [address] Dr[address] Dwight Waters Portable XR Chest Viewson [...] chest. IMPRESSION IMPRESSION: No acute cardiopulmonary disease [facility] Radiology Study observation (narrative) [facility] Portable XR Chest ViewsOrder ed By: Vladislav Omer on 05-15-2022 [facility] UR[facility] DIPSTICK; REFLEX MICRO SCOPY; REFLEX CULTURE PERFORMABLEon 05-15-2022 Appearance (U) Clear Clear [facility] Color (U) Yellow Yellow [facility] Glucose Test strip (U) [Mass/Vol] 100 mg/dL Abnormal Negative [facility] Interpretation and review of laboratory results Abnormal [facility] Ketones (U) [Mass/Vol] Negative Negative [facility] Leukocyte esterase Test strip Ql (U) Large Abnormal Negative [facility] Nitrite Ql (U) Negative Negative [facility] pH (U) 6.0 [pH] 5.0 - 7.0 [facility] Protein (U) [Mass/Vol] 100 mg/dL Abnormal Negative [facility] RBC (U) [#/Vol] Large Abnormal Negative [facility] Specific gravity (U) [Rel density] [facility] Urobilinogen (U) [Mass/Vol] 0.2 E.U./dL 0.2 E.U/dL, 1.0 E.U/dL [facility] URINE MICROSCOPIC WITH REFLE X TO CULTUREOrdered By: Rey Bro on 05-15-2022 Bacteria LM Ql (Urine sed) ABSENT ABSENT [facility] Epithelial cells.squamous LM Ql (Urine sed) ABSENT 1/hpf = 1+, 2-5/hpf = 2+, 0/hpf = 0+, ABSENT [facility] Interpretation and review of laboratory results Abnormal [facility] RBC LM.HPF (Urine sed) [#/Area] /[HPF] Abnormal 0 - 2 /HPF [facility] WBC LM.HPF (Urine sed) [#/Area] 10-20 Abnormal 0 - 5 /HPF [facility] CT ABD/PELVIS WO CONon 05-12 CT ABD/PELVIS WO CON Begin Addendum #[address] Lund 3:25 PM EST 05/11/2022. Begin Addendum #2 IMPRESSION below should also contain the followin. 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 The [place] kidneys are progressively atrophic bilaterally compared to [...] of 06/14/2020 are no longer present. The [place] distal right ureter is decompressed beyond this [...] with surgical history for renal graft and [place] right urinary drainage, as a discrete ureteroneocystostomy is not identified, and the graft may be draining via a ureteroureterostomy. Urology consultation recommended. 3. The [place] kidneys are bilaterally atrophic, with right renal sinus calcifications consistent with nonobstructing right [place] renal calculi up to 6 mm. Normal [facility] CBC AUTO DIFFon 05-11-2022 BASO # 0.1 103/ul Normal 0.0-0.1 [facility] Comment on above: Performed By: #### U RTPCR #### [facility] [address] [address] [address] Dwight Waters Basophils/100 WBC (Bld) 0.8 % Normal 0.2-2.0 [facility] Comment on above: Performed By: #### U RTPCR #### [facility] [address] [address] [address] Dwight Waters EO # 0.2 103/ul Normal 0.0-0.7 [facility] Comment on above: Performed By: #### U RTPCR #### [facility] [address] [address] [address] Dwight Waters Eosinophils/100 WBC (Bld) 2.5 % Normal 0.9-7.0 [facility] Comment on above: Performed By: #### U RTPCR #### [facility] [address] [address] [address] Dwight Waters Erythrocyte distribution width (RBC) [Ratio] 12.5 % Normal 11.0-15.0 [facility] Comment on above: Performed By: #### U RTPCR #### [facility] [address] [address] [address] Dwight Waters Hematocrit (Bld) [Volume fraction] 48.3 % Normal 42.0-54.0 [facility] Comment on above: Performed By: #### U RTPCR #### [facility] [address] [address] [address] Dwight Waters Hemoglobin (Bld) [Mass/Vol] 15.3 g/dL Normal 14.0-18.0 [facility] Comment on above: Performed By: #### U RTPCR #### [facility] [address] [address] [address] Dwight Waters IG # 0.01 10e3/ul Normal 0.00-0.03 [facility] Comment on above: Performed By: #### U RTPCR #### [facility] [address] [place] [address] Dr. Dwight Waters IG % 0.2 % Normal 0.0-0.5 [facility] Comment on above: Performed By: #### U RTPCR #### [facility] [address] [place] [address] Dr. Dwight Waters LYMPH # 1.9 103/ul Normal 1.2-3.8 [facility] Comment on above: Performed By: #### U RTPCR #### [facility] [address] [place] [address] Dr. Dwight Waters Lymphocytes/100 WBC (Bld) 29.8 % Normal 20.5-60.0 [facility] Comment on above: Performed By: #### U RTPCR #### [facility] [address] [place] [address] Dr. Dwight Waters MANUAL DIFF REQ NO Normal [facility] Comment on above: Performed By: #### U RTPCR #### [facility] [address] [place] [address] Dr. Dwight Waters MCH (RBC) [Entitic mass] 28.2 pg Normal 25.9-34.0 [facility] Comment on above: Performed By: #### U RTPCR #### [facility] [address] [place] [address] Dr. Dwight Waters MCHC (RBC) [Mass/Vol] 31.7 g/dL Normal 29.9-35.2 [facility] Comment on above: Performed By: #### U RTPCR #### [facility] [address] [address] [address] Dwight Waters MCV (RBC) [Entitic vol] 89.1 fL Normal 80.0-94.0 [facility] Comment on above: Performed By: #### U RTPCR #### [facility] [address] [address] [address] Dwight Waters MONO # 0.6 103/ul Normal 0.3-0.8 [facility] Comment on above: Performed By: #### U RTPCR #### [facility] [address] [place] [address] Dr. Dwight Waters Monocytes/100 WBC (Bld) 9.0 % Normal 1.7-12.0 [facility] Comment on above: Performed By: #### U RTPCR #### [facility] [address] [place] [address] Dr. Dwight Waters NEUT # 3.6 103/ul Normal 1.4-6.5 [facility] Comment on above: Performed By: #### U RTPCR #### [facility] [address] [place] [address] Dr. Dwight Waters Neutrophils/100 WBC (Bld) 57.7 % Normal 43.0-75.0 [facility] Comment on above: Performed By: #### U RTPCR #### [facility] [address] [place] [address] Dr. Dwight Waters Platelet mean volume (Bld) [Entitic vol] 9.9 fL Normal 9.5-13.5 [facility] Comment on above: Performed By: #### U RTPCR #### [facility] [address] [place] [address] Dr. Dwight Waters PLT 249 103/ul Normal 150-450 [facility] Comment on above: Performed By: #### U RTPCR #### [facility] [address] [place] [address] Dr. Dwight Waters RBC 5.42 106/ul Normal 4.70-6.10 [facility] Comment on above: Performed By: #### U RTPCR #### [facility] [address] [place] [address] Dr. Dwight Waters WBC 6.3 103/ul Normal 4.0-11.0 [facility] Comment on above: Performed By: #### U RTPCR #### [facility] [address] [place] [address] Dr. Dwight Waters ER URINE PROFILEon 2 Bilirubin Ql (U) Unable to perform testing due to color interference. Abnormal NEGATIVE [facility] Comment on above: Performed By: #### U RTPCR #### [facility] [address] [place] [address] Dr. Dwight Waters Clarity (U) TURBID Abnormal CLEAR [facility] Comment on above: Performed By: #### U RTPCR #### [facility] [address] [place] [address] Dr. Dwight Waters Color (U) RED Abnormal YELLOW [facility] Comment on above: Performed By: #### U RTPCR #### [facility] [address] [place] [address] Dr. Dwight Waters ERUAHD A micrscopic examination will be performed if indicated. Normal [facility] Comment on above: Performed By: #### U RTPCR #### [facility] [address] [place] [address] Dr. Dwihgt Waters Glucose Ql (U) Unable to perform testing due to color interference. Abnormal NEGATIVE [facility] Comment on above: Performed By: #### U RTPCR #### [facility] [address] [place] [address] Dr. Dwight Waters Hemoglobin Ql (U) Unable to perform testing due to color interference. Abnormal NEGATIVE [facility] Comment on above: Performed By: #### U RTPCR #### [facility] [address] [place] [address] Dr. Dwight Waters Ketones Ql (U) Unable to perform testing due to color interference. Abnormal NEGATIVE [facility] Comment on above: Performed By: #### U RTPCR #### [facility] [address] [place] [address] Dr. Dwight Waters LEUKOCYTES Unable to perform testing due to color interference. Abnormal NEGATIVE [facility] Comment on above: Performed By: #### U RTPCR #### [facility] [address] [place] [address] Dr. Dwight Waters Nitrite Ql (U) Unable to perform testing due to color interference. Abnormal NEGATIVE [facility] Comment on above: Performed By: #### U RTPCR #### [facility] [address] [place] [address] Dr. Dwight Waters pH (U) 6.5 [pH] Normal 5-9 [facility] Comment on above: Performed By: #### U RTPCR #### [facility] [address] [place] [address] Dr. Dwight Waters SPEC GRAVITY 1.020 Normal 1.005-<=1.025 [facility] Comment on above: Performed By: #### U RTPCR #### [facility] [address] [place] [address] Dr. Dwight Waters UA PROTEIN Unable to perform testing due to color interference. Normal NEGATIVE/ TRACE [facility] Comment on above: Performed By: #### U RTPCR #### [facility] [address] [place] [address] Dr. Dwight Waters UR MICRO IND INDICATED Normal [facility] Comment on above: Performed By: #### U RTPCR #### [facility] [address] [place] [address] Dr. Dwight Waters UROBILINOGEN Unable to perform testing due to color interference. Normal 0.2 - 1.0 [facility] Comment on above: Performed By: #### U RTPCR #### [facility] [address] [place] [address] Dr. Dwight Waters PROF 14(COMP METB)on 022 Albumin [Mass/Vol] 3.8 g/dL Normal 3.4-5.0 [facility] Comment on above: Performed By: #### C MP #### [facility] [address] [place] [address] Dr. Dwight Waters Albumin/Globulin [Mass ratio] 1.1 {ratio} Normal [facility] Comment on above: Performed By: #### C MP #### [facility] [address] [address] [address] Dwight Waters ALP [Catalytic activity/Vol] 106 U/L Normal 46-116 [facility] Comment on above: Performed By: #### C MP #### [facility] [address] [address] [address] Dwight Waters ALT [Catalytic activity/Vol] 30 U/L Normal 16-63 [facility] Comment on above: Performed By: #### C MP #### [facility] [address] [address] [address] Dwight Waters Anion gap [Moles/Vol] 11.7 mmol/L Normal [facility] Comment on above: Performed By: #### C MP #### [facility] [address] [place] [address] Dr. Dwight Waters AST [Catalytic activity/Vol] 16 U/L Normal 15-37 [facility] Comment on above: Performed By: #### C MP #### [facility] [address] [address] [address] Dwight Waters Bilirubin [Mass/Vol] 0.6 mg/dL Normal 0.2-1.0 [facility] Comment on above: Performed By: #### C MP #### [facility] [address] [address] [address] Dwight Waters Calcium [Mass/Vol] 9.1 mg/dL Normal 8.5-10.1 [facility] Comment on above: Performed By: #### C MP #### [facility] [address] [address] [address] Dwight Waters CO2 [Moles/Vol] 27.4 mmol/L Normal 21.0-32.[address] [facility] Comment on above: Performed By: #### C MP #### [facility] [address] [address] [address] Dwight Waters Creatinine [Mass/Vol] 1.18 mg/dL Normal 0.70-1.30 [facility] Comment on above: Performed By: #### C MP #### [facility] [address] [address] [address] Dwight Waters EGFR-AF QATARI >60 Normal >=[address] [facility] Comment on above: Performed By: #### C MP #### [facility] [address] [address] [address] Dwight Waters EGFR-NON AF QATARI >60 Normal >=60 [facility] Comment on above: Performed By: #### C MP #### [facility] [address] [address] [address] Dwight Waters Globulin (S) [Mass/Vol] 3.6 g/dL Normal [facility] Comment on above: Performed By: #### C MP #### [facility] [address] [address] [address] Dwight Waters Glucose [Mass/Vol] 192 mg/dL Critically high 74-106 [facility] Comment on above: Performed By: #### C MP #### [facility] [address] [address] [address] Dwight Waters Potassium [Moles/Vol] 4.1 mmol/L Normal 3.5-5.1 [facility] Comment on above: Performed By: #### C MP #### [facility] [address] [address] [address] Dwight Waters Protein [Mass/Vol] 7.4 g/dL Normal 6.4-8.2 [facility] Comment on above: Performed By: #### C MP #### [facility] [address] [address] [address] Dwight Waters Sodium [Moles/Vol] 142 mmol/L Normal 136-145 [facility] Comment on above: Performed By: #### C MP #### [facility] [address] [address] [address] Dwight Waters Urea nitrogen [Mass/Vol] 17.0 mg/dL Normal 7.0-18.0 [facility] Comment on above: Performed By: #### C MP #### [facility] [address] [place] [address] Dr. Dwight Waters Urea nitrogen/Creatinine [Mass ratio] 14.4 mg/mg Normal [facility] Comment on above: Performed By: #### C MP #### [facility] [address] [place] [address] Dr. Dwight Waters URINE MICROSCOPIC ONLYon BACTERIA NONE SEEN Normal NONE SEEN [facility] Comment on above: Performed By: #### U RTPCR #### [facility] [address] [place] [address] Dr. Dwight Waters Bacteria identified Cx Nom (U) NOT INDICATED Normal [facility] Comment on above: Performed By: #### U RTPCR #### [facility] [address] [place] [address] Dr. Dwight Waters CAST NONE SEEN Normal NONE SEEN [facility] Comment on above: Performed By: #### U RTPCR #### [facility] [address] [place] [address] Dr. Dwight Waters Crystals LM Nom (Urine sed) NONE SEEN Normal NONE SEEN [facility] Comment on above: Performed By: #### U RTPCR #### [facility] [address] [place] [address] Dr. Dwight Waters Epithelial cells LM Ql (Urine sed) RARE Normal NONE SEEN /RARE [facility] Comment on above: Performed By: #### U RTPCR #### [facility] [address] [place] [address] Dr. Dwight Waters MUCOUS NONE SEEN Normal NONE SEEN [facility] Comment on above: Performed By: #### U RTPCR #### [facility] [address] [place] [address] Dr. Dwight Waters RBC (U) [#/Vol] /uL Abnormal 0-2 [facility] Comment on above: Performed By: #### U RTPCR #### [facility] [address] [place] [address] Dr. Dwight Waters WBC NONE SEEN Normal NONE SEEN [facility] Comment on above: Performed By: #### U RTPCR #### [facility] [address] [place] [address] Dr. Dwight Ortiz (Potassium)on 01-06-2020 Potassium [Moles/Vol] 4.4 mmol/L Normal 3.7-5.3 [facility] Comment on above: Performed By: #### K #### [facility] [address] [place] [address] [employer]: Kehinde Woodward MD Potassiumon 01-06-2020 Potassium [Moles/Vol] 4.4 mmol/L 3.7 - 5.3 mmol/L [facility] Work Phone: Hemoglobin and Hematocrit, B loodon 10-24-2019 Hematocrit (Bld) [Volume fraction] 23.6 % Low 40.7 - 50.3 % [place] Hemoglobin (Bld) [Mass/Vol] 7.3 g/dL Low 13 - 17 g/dL [place] Interpretation and review of laboratory results Abnormal [place] Hgb/Hcton 10-24-2019 Hematocrit (Bld) [Volume fraction] 23.6 % Low 40.7-50.3 [facility] Comment on above: Performed By: #### H H #### [facility] [address] [place] [address] [address] [id number] [employer]: Kehinde Woodward MD Hemoglobin (Bld) [Mass/Vol] 7.3 g/dL Low 13.0-17.0 [facility] Comment on above: Performed By: #### H H #### [facility] [address] [place] [id number] [employer]: Kehinde Woodward MD Hemoglobinon 08-27-2019 Hemoglobin (Bld) [Mass/Vol] 7.5 g/dL Low 13.0-17.0 [facility] Comment on above: Performed By: #### H GB #### [facility] [address] [place] [address] [employer]: Kehinde Woodward MD Hemoglobin (Bld) [Mass/Vol] 7.5 g/dL Low 13 - 17 g/dL [place] Interpretation and review of laboratory results Abnormal [place] Hemoglobinon 08-08-2019 Hemoglobin (Bld) [Mass/Vol] 8.3 g/dL Low 13.0-17.0 [facility] Comment on above: Performed By: #### H GB #### [facility] [address] [place] [address] [employer]: Kehinde Woodward MD Hemoglobin (Bld) [Mass/Vol] 8.3 g/dL Low 13 - 17 g/dL [place] Interpretation and review of laboratory results Abnormal [place] Hemoglobinon 08-04-2019 Hemoglobin (Bld) [Mass/Vol] 8.0 g/dL Low 13.0-17.0 [facility] Comment on above: Performed By: #### H GB #### [facility] [address] [place] [address] [employer]: Kehinde Woodward MD Hemoglobin A1Con 08-03-2019 HbA1c (Bld) [Mass fraction] % Low 4.8-5.9 [facility] Comment on above: Result Comment: The ADA and AACC recommend providing the estimated average glucose result to permit better patient understanding of their HBA1c result. Performed By: #### G LYHGB #### [address] [place] [address] [employer]: Kehinde Woodward MD Glucose [Mass/Vol] mg/dL mg/dL [place] Comment on above: The ADA and AACC rec ommend providing the estimated average glucose result to permit better patient understanding of their HBA1c result. HbA1c (Bld) [Mass fraction] % Low 4.8 - 5.9 % [place] Interpretation and review of laboratory results Abnormal [place] Hemoglobinon 08-01-2019 Hemoglobin (Bld) [Mass/Vol] 8.1 g/dL Low 13.0-17.0 [facility] Comment on above: Performed By: #### H GB #### [facility] [address] [place] [id number] [employer]: Kehinde Woodward MD Hemoglobin (Bld) [Mass/Vol] 8.1 g/dL Low 13 - 17 g/dL [place] Interpretation and review of laboratory results Abnormal [place] Hgb/Hcton 06-10-2019 Hematocrit (Bld) [Volume fraction] 24.3 % Low 40.7-50.3 [facility] Comment on above: Performed By: #### H H #### [address] [place] [id number] [employer]: Kehinde Woodward MD Hemoglobin (Bld) [Mass/Vol] 7.4 g/dL Low 13.0-17.0 [facility] Comment on above: Performed By: #### H H #### [address] [place] [id number] [employer]: Kehinde Woodward MD Hemoglobinon 06-01-2019 Hemoglobin (Bld) [Mass/Vol] 7.2 g/dL Low 13.0-17.0 [facility] Comment on above: Performed By: #### H GB #### [address] [place] [id number] [employer]: Kehinde Woodward MD K (Potassium)on 01-14-2019 Potassium [Moles/Vol] 3.6 mmol/L Low 3.7-5.3 [facility] Comment on above: Performed By: #### K #### [address] [place] [address] [employer]: Kehinde Woodward MD Otheron 10-19-2018 IMPRESSION: 1. [...] characteristics determined by Toxicology Laboratory at [facility]. It has not been cleared [...] Amitriptyline(50), Amphetamine(250), Atenolol(500), Barbiturates(1000), Benzoylecgonine(50), Buprenorphine(50), Bupropion(25), Caffeine(80618), Chlordiazepoxide(50), Chlorpheniramine(100), Chlorpromazine(50), Citalopram(100), Clonazepam(200), Cocaine(25), Codeine(200), [...] LAB, [facility] Drugs identified Screen Nom (U) For Medical Purposes Only, Non-forensic, screen results are presumptive. No confirmatory testing will follow. Invalid Interpretation Code LAB, [facility] Comment on above: This Liquid Chromato graphy Mass Spectrometry (LC/MS/MS) test was developed and its performance characteristics determined by Toxicology Laboratory at [facility]. It has not been cleared [...] Amitriptyline(50), Amphetamine(250), Atenolol(500), Barbiturates(200), Benzoylecgonine(50), Buprenorphine(500), Bupropion(25), Caffeine(73836), Cannabinoids(THC)(50), Chlordiazepoxide(50), Chlorpheniramine(100), Chlorpromazine(50), Citalopram(100), Clonazepam(200), Cocaine(25), [...] Pressure Location Clementina Montesinos [facility] 09-08-2024 13:40-0400 Diastolic blood pressure 90 mm[Hg] Clementina Montesinos [facility] 09-08-2024 13:40-0400 Heart rate 66 /min Clementina Montesinos [facility] 09-08-2024 13:40-0400 Systolic blood pressure 144 mm[Hg] Clementina Montesinos [facility] 06-17-2024 08:37-0400 Body mass index (BMI) [Ratio] 29.43 kg/m2 Rebeca Gutierrez [employer] Work Phone: [facility] 06-17-2024 08:37-0400 Body temperature 97.39 [degF] Rebeca Gutierrez [employer] Work Phone: [facility] 06-17-2024 08:37-0400 Body weight 85.23 kg Rebeca Gutierrez [employer] Work Phone: [facility] 06-17-2024 08:37-0400 Diastolic blood pressure 75 mm[Hg] Rebeca Gutierrez [employer] Work Phone: [facility] 06-17-2024 08:37-0400 Heart rate 53 /min Rebeca Gutierrez [employer] Work Phone: [facility] 06-17-2024 08:37-0400 Systolic blood pressure 143 mm[Hg] Rebeca Gutierrez [employer] Work Phone: [facility] 06-17-2024 08:36-0400 Body mass index (BMI) [Ratio] 29.43 kg/m2 Daisha Sobotka DO Work Phone: [facility] 06-17-2024 08:36-0400 Body temperature 97.39 [degF] Daisha Sobotka DO Work Phone: [facility] 06-17-2024 08:36-0400 Body weight 85.23 kg Daisha Sobotka DO Work Phone: [facility] 06-17-2024 08:36-0400 Diastolic blood pressure 75 mm[Hg] Daisha Max DO Work Phone: [facility] 06-17-2024 08:36-0400 Heart rate 53 /min Daisha Max DO Work Phone: [facility] 06-17-2024 08:36-0400 Systolic blood pressure 143 mm[Hg] Daisha Max DO Work Phone: [facility] 02-26-2024 09:07-0400 Diastolic blood pressure 56 mm[Hg] Candie Almaguer MD Work Phone: [facility] 02-26-2024 09:07-0400 Heart rate 65 /min Candie Almaguer MD Work Phone: [facility] 02-26-2024 09:07-0400 Systolic blood pressure 113 mm[Hg] Candie Almaguer MD Work Phone: [facility] 02-26-2024 09:06-0400 Body height 170.2 cm Candie Almaguer MD Work Phone: [facility] 02-26-2024 09:06-0400 Body mass index (BMI) [Ratio] 28.9 kg/m2 Candie Almaguer MD Work Phone: [facility] 02-26-2024 09:06-0400 Body weight 83.69 kg Candie Almaguer MD Work Phone: [facility] 02-26-2024 09:06-0400 Respiratory rate 20 /min Candie Almaguer MD Work Phone: [facility] 02-26-2024 09:06-0400 SaO2% (BldA) [Mass fraction] 97 % Candie Almaguer MD Work Phone: [facility] 01-23-2024 15:04-0500 Body temperature 97.9 [degF] Kevin Prince MD Work Phone: [facility] 01-23-2024 15:04-0500 Diastolic blood pressure 67 mm[Hg] Kevin Prince MD Work Phone: [facility] 01-23-2024 15:04-0500 Heart rate 51 /min Kevin Prince MD Work Phone: [facility] 01-23-2024 15:04-0500 Respiratory rate 16 /min Kevin Prince MD Work Phone: [facility] 01-23-2024 15:04-0500 SaO2% (BldA) [Mass fraction] 94 % Kevin Prince MD Work Phone: [facility] 01-23-2024 15:04-0500 Systolic blood pressure 151 mm[Hg] Kevin Prince MD Work Phone: [facility] 01-23-2024 10:46-0500 Body mass index (BMI) [Ratio] 30.94 kg/m2 Kevin Prince MD Work Phone: [facility] 01-23-2024 10:46-0500 Body weight 89.6 kg Kevin Prince MD Work Phone: [facility] 01-18-2024 11:21-0500 Body height 170.2 cm Kevin Prince MD Work Phone: [facility] 01-06-2024 09:04-0500 Body height 170.2 cm Zuly Bruno WAITER/WAITRESS DINING [employer] Work Phone: [facility] 01-06-2024 09:04-0500 Body mass index (BMI) [Ratio] 32.42 kg/m2 Zuly Bruno WAITER/[employer]ING [employer] Work Phone: [facility] 01-06-2024 09:04-0500 Body temperature 97.81 [degF] Zuly Torresholz WAITER/[employer]ING [employer] Work Phone: [facility] 01-06-2024 09:04-0500 Body weight 93.89 kg Zulytray Torresholz WAITER/[employer]RESS [employer]ING [employer] Work Phone: [facility] 01-06-2024 09:04-0500 Diastolic blood pressure 70 mm[Hg] Zuly Brianholz WAITER/[employer]ING [employer] Work Phone: [facility] 01-06-2024 09:04-0500 Heart rate 95 /min Zuly Kristopherhholz WAITER/[employer]RESS [employer]ING [employer] Work Phone: [facility] 01-06-2024 09:04-0500 Respiratory rate 17 /min Zuly Brianholz WAITER/[employer]RESS DINING [employer] Work Phone: [facility] 01-06-2024 09:04-0500 SaO2% (BldA) [Mass fraction] 99 % Zuly Brianholz WAITER/[employer]RESS [employer]ING [employer] Work Phone: [facility] 01-06-2024 09:04-0500 Systolic blood pressure 138 mm[Hg] Zuly Kristopherhholz WAITER/[employer]RESS [employer]ING [employer] Work Phone: [facility] 09-11-2023 10:31-0400 Body temperature 97.81 [degF] Steve Tammy MBBS Work Phone: [facility] 09-11-2023 10:31-0400 Diastolic blood pressure 66 mm[Hg] Steve Tammy MBBS Work Phone: [facility] 09-11-2023 10:31-0400 Heart rate 70 /min Steve Tammy MBBS Work Phone: [facility] 09-11-2023 10:31-0400 Respiratory rate 20 /min Steve Tammy MBBS Work Phone: [facility] 09-11-2023 10:31-0400 SaO2% (BldA) [Mass fraction] 91 % Steve Tammy MBBS Work Phone: [facility] 09-11-2023 10:31-0400 Systolic blood pressure 129 mm[Hg] Steve Tammy MBBS Work Phone: [facility] 09-10-2023 15:50-0400 Body mass index (BMI) [Ratio] 31.99 kg/m2 Steve Tammy MBBS Work Phone: [facility] 09-10-2023 15:50-0400 Body weight 92.67 kg Steve Tammy MBBS Work Phone: [facility] 09-02-2023 07:32-0400 Body height 170.2 cm Steve Tammy MBBS Work Phone: [facility] 08-28-2023 13:33-0400 Body height 170.2 cm Steve Tammy MBBS Work Phone: [facility] 08-28-2023 13:33-0400 Body mass index (BMI) [Ratio] 32.12 kg/m2 Steve Tammy MBBS Work Phone: [facility] 08-28-2023 13:33-0400 Body temperature 97.3 [degF] Steve Tammy MBBS Work Phone: [facility] 08-28-2023 13:33-0400 Body weight 93.03 kg Steve Tammy MBBS Work Phone: [facility] 08-28-2023 13:33-0400 Diastolic blood pressure 41 mm[Hg] Steve Tammy MBBS Work Phone: [facility] 08-28-2023 13:33-0400 Heart rate 116 /min Steve Tammy MBBS Work Phone: [facility] 08-28-2023 13:33-0400 Systolic blood pressure 106 mm[Hg] Steve Tammy MBBS Work Phone: [facility] 06-12-2023 14:50-0400 Body mass index (BMI) [Ratio] 33.8 kg/m2 Rebeca Gutierrez SUPERINTENDENT BOARD MILL-COWLMAN Work Phone: [facility] 06-12-2023 14:50-0400 Body temperature 97.3 [degF] Rebeca Gutierrez SUPERINTENDENT [employer]OWL[employer] Work Phone: [facility] 06-12-2023 14:50-0400 Body weight 97.89 kg Rebeca Gutierrez SUPERINTENDENT [employer] Work Phone: [facility] 06-12-2023 14:50-0400 Diastolic blood pressure 77 mm[Hg] Rebeca Gutierrez SUPERINTENDENT [employer] Work Phone: [facility] 06-12-2023 14:50-0400 Heart rate 76 /min Rebeca Gutierrez SUPERINTENDENT [employer] Work Phone: [facility] 06-12-2023 14:50-0400 Systolic blood pressure 146 mm[Hg] Rebeca Gutierrez SUPERINTENDENT [employer] Work Phone: [facility] 01-16-2023 08:57-0500 Body height 170.2 cm [facility] Work Phone: [facility] 01-16-2023 08:57-0500 Body mass index (BMI) [Ratio] 33.66 kg/m2 [facility] Work Phone: [facility] 01-16-2023 08:57-0500 Body temperature 97.3 [degF] [facility] Work Phone: [facility] 01-16-2023 08:57-0500 Body weight 97.48 kg [facility] Work Phone: [facility] 01-16-2023 08:57-0500 Diastolic blood pressure 75 mm[Hg] [facility] Work Phone: [facility] 01-16-2023 08:57-0500 Heart rate 76 /min [facility] Work Phone: [facility] 01-16-2023 08:57-0500 Systolic blood pressure 142 mm[Hg] [facility] Work Phone: [facility] 09-10-2022 09:38-0400 Body height 170.2 cm Ryan Yepez MD Work Phone: [facility] 09-10-2022 09:38-0400 Body mass index (BMI) [Ratio] 33.67 kg/m2 Ryan Yepez MD Work Phone: [facility] 09-10-2022 09:38-0400 Body weight 97.52 kg Ryan Yepez MD Work Phone: [facility] 09-10-2022 09:38-0400 Diastolic blood pressure 83 mm[Hg] Ryan Yepez MD Work Phone: [facility] 09-10-2022 09:38-0400 Heart rate 64 /min Ryan Yepez MD Work Phone: [facility] 09-10-2022 09:38-0400 SaO2% (BldA) [Mass fraction] 96 % Ryan Yepez MD Work Phone: [facility] 09-10-2022 09:38-0400 Systolic blood pressure 129 mm[Hg] Ryan Yepez MD Work Phone: [facility] 07-07-2022 13:48-0400 Diastolic blood pressure 76 mm[Hg] Ryan Yepez MD Work Phone: [facility] 07-07-2022 13:48-0400 Heart rate 82 /min Ryan Yepez MD Work Phone: [facility] 07-07-2022 13:48-0400 SaO2% (BldA) [Mass fraction] 96 % Ryan Yepez MD Work Phone: [facility] 07-07-2022 13:48-0400 Systolic blood pressure 141 mm[Hg] Ryan Yepez MD Work Phone: [facility] 06-27-2022 13:32-0400 Body height 170.2 cm Ryan Yepez MD Work Phone: [facility] 06-27-2022 13:32-0400 Body mass index (BMI) [Ratio] 34.24 kg/m2 Ryan Yepez MD Work Phone: [facility] 06-27-2022 13:32-0400 Body temperature 98.6 [degF] Ryan Yepez MD Work Phone: [facility] 06-27-2022 13:32-0400 Body weight 99.16 kg Ryan Yepez MD Work Phone: [facility] 06-27-2022 13:32-0400 Diastolic blood pressure 78 mm[Hg] Ryan Yepez MD Work Phone: [facility] 06-27-2022 13:32-0400 Heart rate 77 /min Ryan Yepez MD Work Phone: [facility] 06-27-2022 13:32-0400 SaO2% (BldA) [Mass fraction] 95 % Ryan Yepez MD Work Phone: [facility] 06-27-2022 13:32-0400 Systolic blood pressure 121 mm[Hg] Ryan Yepez MD Work Phone: [facility] 06-27-2022 10:52-0400 Body height 170.2 cm Rena Brewster RN [facility] 06-27-2022 10:52-0400 Body mass index (BMI) [Ratio] 34.46 kg/m2 Rena Brewster RN [facility] 06-27-2022 10:52-0400 Body temperature 98.2 [degF] Rena Brewster RN [facility] 06-27-2022 10:52-0400 Body weight 99.79 kg Rena Brewster RN [facility] 06-27-2022 10:52-0400 Diastolic blood pressure 73 mm[Hg] Rena Brewster RN [facility] 06-27-2022 10:52-0400 Heart rate 78 /min Rena Brewster RN [facility] 06-27-2022 10:52-0400 Respiratory rate 20 /min Rena Brewster RN [facility] 06-27-2022 10:52-0400 SaO2% (BldA) [Mass fraction] 97 % Renaanalilia Brewster RN [facility] 06-27-2022 10:52-0400 Systolic blood pressure 135 mm[Hg] Rena Brewster RN [facility] 06-12-2022 14:23-0400 Body mass index (BMI) [Ratio] 34.59 kg/m2 Steve Munoz MBBS Work Phone: [facility] 06-12-2022 14:23-0400 Body temperature 97 [degF] Steve Farrari MBBS Work Phone: [facility] 06-12-2022 14:23-0400 Body weight 100.2 kg Steve Munoz MBBS Work Phone: [facility] 06-12-2022 14:23-0400 Diastolic blood pressure 66 mm[Hg] Steve Farrari MBBS Work Phone: [facility] 06-12-2022 14:23-0400 Heart rate 63 /min Steve LEIGH Work Phone: [facility] 06-12-2022 14:23-0400 Systolic blood pressure 133 mm[Hg] Steve LEIGH Work Phone: [facility] 05-20-2022 15:21-0400 Body temperature 97.9 [degF] Gian Villatoro MD Work Phone: [facility] 05-20-2022 15:21-0400 Diastolic blood pressure 64 mm[Hg] Gian Villatoro MD Work Phone: [facility] 05-20-2022 15:21-0400 Heart rate 55 /min Gian Villatoro MD Work Phone: [facility] 05-20-2022 15:21-0400 Respiratory rate 15 /min Gian Villatoro MD Work Phone: [facility] 05-20-2022 15:21-0400 SaO2% (BldA) [Mass fraction] 95 % Gian Villatoro MD Work Phone: [facility] 05-20-2022 15:21-0400 Systolic blood pressure 145 mm[Hg] Gian Villatoro MD Work Phone: [facility] 05-19-2022 12:15-0400 Body mass index (BMI) [Ratio] 35.87 kg/m2 Gian Villatoro MD Work Phone: [facility] 05-19-2022 12:15-0400 Body weight 103.92 kg Gian Villatoro MD Work Phone: [facility] Comment on above: standing scale 05-16-2022 16:19-0400 Body height 170.2 cm Gian Villatoro MD Work Phone: [phone] [address] 10-19-2018 08:44-0500 BMI (Body Mass Index) 26.58 kg/m2 [facility]: 10-19-2018 08:44-0500 BP Diastolic 76 mm[Hg] [facility] Work Phone: 10-19-2018 08:44-0500 BP Systolic 144 mm[Hg] [facility] Work Phone: 10-19-2018 08:44-0500 Height 172.7 cm [facility] Work Phone: 10-19-2018 08:44-0500 Pulse (Heart Rate) 92 /min [facility] Work Phone: 10-19-2018 08:44-0500 Pulse Oximetry 99 % [facility] Work Phone: 10-19-2018 08:44-0500 Respiratory Rate 16 /min [facility] Work Phone: 10-19-2018 08:44-0500 Weight 79.29 kg [facility] Work Phone: 10-12-2018 09:50-0500 BMI (Body Mass Index) 27.24 kg/m2 [facility] Work Phone: 10-12-2018 09:50-0500 Body Temperature 98.6 [degF] [facility] Work Phone: 10-12-2018 09:50-0500 BP Diastolic 80 mm[Hg] [facility] Work Phone: 10-12-2018 09:50-0500 BP Systolic 157 mm[Hg] [facility] Work Phone: 10-12-2018 09:50-0500 Height 169.5 cm [facility] Work Phone: 10-12-2018 09:50-0500 Pulse (Heart Rate) 94 /min [facility] Work Phone: 10-12-2018 09:50-0500 Weight 78.29 kg [facility] Work Phone: Encounters Encounter Date [...] procedure Clementina Montesinos [facility] [place] Start: 09-07-2024 ambulatory ZULY BRUNO Facility: [facility] Start: 09-05-2024 End: 09-05-2024 ambulatory Angel Carpio RPh,PharmD [facility] [place] Start: 09-05-2024 End: 09-05-2024 Patient encounter procedure Angel Carpio RPh,PharmD [facility] [place] Start: 08-24-2024 ambulatory Steph Borges Facility: [facility] Start: 08-23-2024 End: 08-23-2024 ambulatory ZULY AICHHOLZ Not Available Start: 06-23-2024 End: 06-23-2024 ambulatory Meka Munoz [facility] [place] Start: 06-23-2024 End: 06-23-2024 Patient encounter procedure Meka Munoz [facility] [place] Start: 06-17-2024 End: 06-17-2024 Office outpatient visit 25 minutes Daisha Max DO Work Phone: [facility] Comment on above: Liver lesion (Primar y Dx); Liver transplant recipient; High risk medication use; Therapeutic drug monitoring; 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) Start: 06-17-2024 ambulatory DAISHA MAX [facility] ity:[facility] Start: 05-26-2024 End: 05-26-2024 ambulatory Evan Bolton RPh,PharmD [facility] [place] Start: 05-26-2024 End: 05-26-2024 Patient encounter procedure Evan Bolton RPh,PharmD [facility] [place] Start: 05-13-2024 End: 05-13-2024 ambulatory [facility] Start: 04-18-2024 End: 04-18-2024 ambulatory ZULY AICLydiaHOLZ Not Available Start: 03-24-2024 End: 03-24-2024 Patient encounter procedure Angel Carpio RPh,PharmD [facility] [place] Start: 03-24-2024 End: 03-24-2024 ambulatory Angel Carpio [...] Munoz [facility] [place] Start: 03-02-2024 End: 03-02-2024 Patient encounter procedure Meka Munoz [facility] [place] Start: 03-01-2024 ambulatory ZULY BRUNO Facility: [facility] Start: 03-01-2024 End: 03-01-2024 ambulatory JOHNNA HOLLIDAY Not Available Start: 02-26-2024 ambulatory CANDIE ALMAGUER Facility: [facility] Start: 02-26-2024 End: 02-26-2024 Office outpatient new 30 minutes Candie Almaguer MD Work Phone: [facility] Comment on above: Heart failure, diast olic, acute (Primary Dx) Start: 02-26-2024 ambulatory KELVIN PACHECO Facility: [facility] Start: 02-25-2024 End: 02-25-2024 ambulatory FIDELINA SANCHEZ Not Available Start: 02-23-2024 End: 02-23-2024 ambulatory PALMA PALACIOS Not Available Start: 02-11-2024 Patient encounter procedure Generic Provider [facility] Start: 02-11-2024 End: 02-11-2024 ambulatory ZULY KRISTOPHERLydiaNINO Not Available Start: 01-16-2024 End: 01-23-2024 Encounter for other preprocedural examination KELVIN PACHECO Facility:[facility] Start: 01-16-2024 End: 01-23-2024 Evaluation and management of inpatient Kevin Prince MD Work Phone: [id number] Comment on above: Pleural effusion on right Start: 01-16-2024 End: 01-23-2024 Patient encounter status Kevin Prince MD Work Phone: [facility] Work Phone: Start: 01-12-2024 End: 01-12-2024 ambulatory Angel Fete RPh,PharmD [facility] [place] Start: 01-12-2024 End: 01-12-2024 Patient encounter procedure Angel Fete RPh,PharmD [facility] [place] Start: 01-08-2024 Clinisync Result Encounter Generic External Data Provider [facility] External Department Unsolicited Start: 01-08-2024 Clinisync Result Encounter Generic External Data Provider [facility] External Department Unsolicited Start: 01-06-2024 End: 01-06-2024 Office outpatient visit 25 minutes Zuly Bruno WAITER/[employer] Work Phone: [facility] Comment on above: Bilateral lower extr emity edema (Primary Dx); 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); Atherosclerosis 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); Obesity (BMI 30-39.9); DARLENE (obstructive sleep apnea); Tremor; Immunocompromised (CMS/HCC); Primary hypertension ([facility]); Shortness of breath Start: 01-06-2024 End: 01-06-2024 ambulatory ZULY AICHHOLZ Not Available Start: 01-01-2024 Clinisync Result Encounter Generic External Data Provider [facility] External Department Unsolicited Start: 01-01-2024 Clinisync Result Encounter Generic External Data Provider [facility] External Department Unsolicited Start: 11-03-2023 End: 11-03-2023 ambulatory ZULY AICHHOLZ Not Available Start: 10-06-2023 ambulatory Angel Fete RPh,PharmD [facility] [place] Start: 10-06-2023 Patient encounter procedure Angel Fete RPh,PharmD [facility] [place] Start: 09-29-2023 ambulatory ZULY AICHHOLZ Facility: [facility] Start: 09-23-2023 ambulatory ZULY AICHHOLZ Facility: [facility] Start: 09-15-2023 ambulatory ZULY AICHHOLZ Facility: [facility] Start: 08-28-2023 End: 09-11-2023 Evaluation and management of inpatient Steve LEIGH Work Phone: [id number] Start: 08-28-2023 End: 08-28-2023 Office outpatient visit 25 minutes Steve LEIGH Work Phone: [facility] Comment on above: Immunosuppressed sta tus (Primary Dx); Kidney replaced by transplant; Aftercare following organ transplant; High risk medication use; Other general symptoms and signs; Abnormal blood chemistry; Hypertension secondary to other renal disorders Start: 08-19-2023 ambulatory Meka rueda [facility] [place] Start: 08-19-2023 Patient encounter procedure Meka Munoz [facility] [place] Start: 06-12-2023 End: 06-12-2023 Office outpatient visit 25 minutes Steve LEIGH Work Phone: [facility] Comment on above: 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) Start: 06-10-2023 ambulatory Maren Hayeney RPh,PharmD [facility] [place] Start: 06-10-2023 Patient encounter procedure Maren Bar RPh,PharmD [facility] [place] Start: 04-28-2023 End: 04-29-[address] DOCTOR EVANS Facility:[facility] Start: 03-12-2023 ambulatory Angel Fete RPh,PharmD [facility] Start: 03-12-2023 Patient encounter procedure Angel Fete RPh,PharmD [facility] [place] Start: 03-10-2023 ambulatory Angel Calee RPh,PharmD [facility] [place] Start: 03-10-2023 Patient encounter procedure Angel Fete RPh,PharmD [facility] [place] Start: 03-02-2023 End: 03-03-[address] DOCTOR EVANS Facility:[facility] Start: 01-16-2023 End: 01-16-2023 Office outpatient visit 25 minutes Daisha Max DO Work Phone: [facility] Comment on above: Abnormal blood chemi stry [...] MD Work Phone: [facility] Comment on above: BPH with obstruction /lower urinary tract symptoms (Primary Dx); Encounter for screening for malignant neoplasm of prostate Start: 08-28-2022 End: 08-29-2022 ambulatory ROB ZULY KIANA Facility:[facility] Start: 08-14-2022 End: 08-15-[address] DOCTOR EVANS Facility:[facility] Start: 07-07-2022 End: 07-07-2022 Patient encounter procedure Ryan Yepez MD Work Phone: [facility] Comment on above: Other hydronephrosis (Primary Dx); [...] MD Work Phone: [facility] [place] Comment on above: Other hydronephrosis (Primary Dx) [...] Phone: [facility] Comment on above: Immunosuppressed sta tus (Primary [...] Rivera [facility] Work Phone: [facility] Start: 06-14-2021 Patient encounter procedure Comfort Rivera [facility] Work Phone: [facility] Start: 01-20-2020 End: 01-27-2020 Patient encounter procedure PEPE CASE Facility:[facility] Start: 01-06-2020 End: 01-07-2020 Patient encounter procedure RENA GUDINO [facility] Start: 01-06-2020 End: 01-06-2020 Subsequent hospital visit by physician [facility] Start: 10-24-2019 End: 10-25-2019 Patient encounter procedure TANA CAMPA [facility] Start: 10-24-2019 End: 10-24-2019 Subsequent hospital visit by physician [facility] Start: 08-27-2019 End: 08-28-2019 Patient encounter procedure RENA GUDINO [facility] Start: 08-27-2019 End: 08-27-2019 Subsequent hospital visit by physician [facility] Start: 08-08-2019 End: 08-09-2019 [facility] Start: 08-08-2019 End: 08-08-2019 Subsequent hospital visit by physician [facility] Start: 08-03-2019 End: 08-04-2019 Patient encounter [facility] Start: 08-03-2019 End: 08-03-2019 Subsequent hospital visit by physician [facility] Start: 08-01-2019 End: 08-02-2019 Patient encounter procedure ROBAmber PATINO [facility] Start: 08-01-2019 End: 08-01-2019 Subsequent hospital visit by physician [facility] Start: 06-10-2019 End: 06-11-2019 Patient encounter procedure RENA GUDINO [facility] Start: 06-01-2019 End: 06-02-2019 Patient encounter procedure RENA GUDINO [facility] Start: 01-14-2019 End: 01-15-2019 Patient encounter procedure RENA GUDINO [facility] Start: 11-17-2018 End: 11-17-2018 Patient encounter procedure Fidelina Dangelo [facility] Pre Transplant Office Comment on above: Social Work Follow-u p Start: 10-19-2018 End: 10-19-2018 Patient encounter Autumncolin Rooney [facility] Pre Transplant Office Comment on above: Cirrhosis [...] End: 10-12-2018 Patient encounter procedure Sophie Cary [facility] Pre Transplant Office Comment on above: Alcoholic cirrhosis, unspecified whether ascites present (Primary Dx); Pre-transplant evaluation for liver transplant Start: 10-12-2018 End: 10-12-2018 Office outpatient new 60 minutes Alfredito Feliz Kaye Work Phone: [facility] [place] Pre Transplant Office Comment on above: Alcoholic cirrhosis, unspecified whether ascites present; ESRD (end stage renal disease) on dialysis; Pre-transplant evaluation for liver transplant Start: 10-06-2018 End: 10-06-2018 Patient encounter procedure Yovani Mejias Dominga Work Phone: Department of Radiology Comment on above: Canceled (Insurance Company Redirected Pt) Start: 10-05-2018 Patient encounter status Comfort Rivera [facility] Work Phone: [facility] Procedures Date Procedure Procedure Detail [...] #### C HM7, HFP, MGO #### [facility] (DEFAULT) [address] [place] [address] Start: 01-22-2024 Assay of magnesium Just in [...] Start: 01-20-2024 Assay of magnesium Just in Jaek LUZ Work Phone: Start: 01-20-2024 Hepatic function [...] quantifica tion each organism Fidelina Ortiz Alarcon [facility] Work Phone: Start: 01-18-2024 Echo tthrc r-t [...] AURIS SCREEN BY PCR Carol Ann Capps SUPERINTENDENT BOARD M[employer]PU[employer] SERVICER SUPERVISOR Work Phone: Start: 01-08-2024 ALL CBC WITH [...] Culture fngi mold/yeast prsmptv oth xcpt blood rCow Diaz MD Work Phone: Start: 0 End: 09-02-2023 Cytp slctv cell enhancement interpj [...] Phone: Start: 08-30-2023 Hepatic function panel Evan Kelyl MD Work Phone: Start: 08-29-2023 Prothrombin time [...] AURIS SCREEN BY PCR Carol Ann Capps SUPERINTENDENT [employer]ARD [employer] SERVICER SUPERVISOR Work Phone: Start: 08-28-2023 CBC AND ELECTRONIC [...] above: Performed By: #### C MP #### [facility] [address] [place] [address] Dr. Dwight Waters Start: 07-07-2022 Rmvl nfros [...] 10-12-2018 Drug screening cannabinoids natural Yovani Mejias Kiddyannie Work Phone: Start: 10-12-2018 End: 10-12-2018 Hepatitis a antibody haab Yovani Mejias Kiddyannie Work Phone: Start: 10-12-2018 End: 10-12-2018 Hepatitis b core antibody hbcab total Yovani Orr Work Phone: Start: 10-12-2018 End: 10-12-2018 Hepatitis b surf antibody hbsab Yovani Mejias [employer] Work Phone: Start: 10-12-2018 End: 10-12-2018 Hepatitis c antibody Yovani Mejias [employer] Work Phone: Start: 10-12-2018 End: 10-12-2018 Iaad ia hepatitis b surface antigen Yovani RuizAgilys Work Phone: Start: 10-12-2018 End: 10-12-2018 Iaad ia hiv-1 ag w/hiv-1 & hiv-2 antbdy single Yovani Mejias [employer] Work Phone: Start: 10-12-2018 End: 10-12-2018 PSA screening Yovani Mejias [employer] Work Phone: Start: 10-12-2018 End: 10-12-2018 Thromboplastin time partial plasma/whole blood Yovani Orr Work Phone: Start: 10-12-2018 End: 10-12-2018 Assay of ethanol Yovani [employer] Work Phone: Start: 10-12-2018 End: 10-12-2018 Drug/substance definitive qual/quant nos 7/more Yovani Mejias [employer] Work Phone: Start: 10-12-2018 End: 10-12-2018 Protein [...] transplant Kidney replaced by transplant Rebeca Gutierrez APRN-COWLMAN Work Phone: Plan of Treatment Date Care Activity Detail Author Start: 09-20-2029 Screening for malignant neoplasm of colon [facility] Start: 08-15-2025 Potassium [Moles/volume] in Serum or Plasma [facility] Start: 07-04-2025 Potassium [Moles/volume] in Serum or Plasma POTASSIUM [facility] Start: 06-20-2025 Potassium [Moles/volume] in Serum or Plasma POTASSIUM [facility] Start: 06-16-2025 End: 06-16-2025 Patient encounter procedure [facility] Start: 06-13-2025 Potassium [Moles/volume] in Serum or Plasma POTAS[facility]UM [facility] Start: 05-23-2025 Potassium [Moles/volume] in Serum or Plasma P[facility]AS[facility]UM [facility] Start: 03-28-2025 Potassium [Moles/volume] in Serum or Plasma POTAS[facility]UM [facility] Start: 03-21-2025 Potassium [Moles/volume] in Serum or Plasma [facility]AS[facility]UM [facility] Start: 02-28-2025 Potassium [Moles/volume] in Serum or Plasma POTASSIUM [facility] Start: 02-10-2025 Medicare Annual Wellness (AWV) Medicare Annual Wellness (AWV) [facility] Start: 01-23-2025 Potassium [Moles/volume] in Serum or Plasma POTASSIUM [facility] Start: 10-25-2024 End: 10-25-2024 Patient encounter procedure 10/25/2024 8:40 AM EST Office Visit [facility] [address] [place] [address] Zuly Bruno NP [address] [place] [address] [facility] Start: 09-29-2024 Influenza vaccination Influenza Vaccine (#1) [facility] Comment on above: Postponed from 07/31/2024 (Patient Refus ed) Start: 09-07-2024 End: 09-07-2024 Telemedicine consultation with patient 09/07/2024 3:00 PM EDT Telemedicine Infectious Diseases Care [facility] [address] [place] [phone] Evan White DO [address] [place] [address] Infectious Diseases Care [facility] Start: 08-31-2024 Screening for malignant neoplasm of lung [facility] Start: 07-31-2024 Influenza vaccination INFLUENZA VACCINE (#1) [facility] Start: 06-17-2024 End: 06-17-2024 ambulatory [facility] Transplant [facility] Start: 06-17-2024 End: 06-17-2024 Patient encounter procedure [facility] Start: 03-22-2024 Fasting lipid profile LIPID SCREENING [facility] Start: 03-22-2024 Lipid panel [facility] Start: 02-26-2024 End: 02-26-2024 Patient encounter procedure 02/26/2024 9:30 AM EDT Office Visit [facility] [address] [place] [phone] Candie Almaguer MD [address] [place] [phone] [facility] Start: 02-11-2024 End: 02-11-2024 Patient encounter procedure 02/11/2024 10:30 AM EDT Office Visit [facility] [address] [place] [address] Zuly Bruno, BA [address] [place] [phone] [facility] Start: 02-09-2024 End: 02-09-2024 Telemedicine consultation with patient 02/09/2024 3:30 PM EDT Telemedicine Infectious Diseases Care [facility] [address] [place] [phone] Hakeem Alamo MD [address] [place] [address] Infectious Diseases Care [facility] Start: 01-15-2024 End: 01-15-2024 ambulatory [facility] Start: 01-15-2024 End: 01-15-2024 Patient encounter procedure [facility] Start: 01-06-2024 End: 01-06-2026 Echocardiogram 2D complete Echocardiogram 2D complete Echocardiography Routine DARLENE (obstructive sleep apnea) Primary hypertension (CMS/HCC) Bilateral lower extremity edema Shortness of breath Expected: 01/06/2024 (Approximate), Expires: 01/06/2026 [facility] Work Phone: Comment on above: Expected: 01/06/2024 (Approximate), Expi res: 01/06/2026 Start: 01-06-2024 End: 01-06-2024 Patient encounter procedure 01/06/2024 9:00 AM EST Office Visit [facility] [address] [place] [phone] Zuly Bruno NP [address] [place] [phone] [facility] Start: 12-08-2023 End: 09-07-2024 CT Chest WO contrast [facility] Work Phone: Start: 12-01-2023 COVID-19 VACCINE (2 - Moderna risk series) COVID-19 VACCINE (2 - Moderna risk series) [facility] Start: 09-23-2023 End: 09-23-2023 ambulatory Infectious Diseases Care [facility] Start: 09-23-2023 End: 09-23-2023 Telemedicine consultation with patient 09/23/2023 4:00 PM EDT Telemedicine Infectious Diseases Care [facility] [address] [place] [address] Hakeem Alamo MD [address] [place] [address] Infectious Diseases Care [facility] Start: 09-15-2023 End: 09-10-2024 ITRACONAZOLE LEVEL [facility] Start: 08-25-2023 End: 08-25-2024 ALLOSCREEN RECIPIENT (POST TX PRA) ALLOSCREEN RECIPIENT (POST TX PRA) Lab Routine Kidney replaced by transplant Aftercare following organ transplant Immunosuppressed status High risk medication use Other general symptoms and signs Abnormal blood chemistry Expected: 08/25/2023, Expires: 08/25/2024 [facility] Comment on above: Expected: 08/25/2023, Expires: Start: 07-31-2023 Influenza vaccination [facility] Start: 06-12-2023 End: 06-12-2023 Patient encounter procedure 06/12/2023 Office Visit Transplant Surgery Steve Munoz MBBS [address] [place] [address] [facility] Transplant [facility] Start: 03-11-2023 End: 03-11-2023 Telemedicine consultation with patient 03/11/2023 Telemedicine Urology Ryan Yepez MD [email or web address] [place] [address] [facility] Start: 01-16-2023 End: 01-16-2023 Patient encounter procedure 01/16/2023 Office Visit Transplant Surgery [facility] Transplant [facility] Start: 10-31-2022 End: 10-31-2022 Patient encounter procedure 10/31/2022 Office Visit Transplant Surgery Steve Munoz MBBS [address] [place] [phone] [facility] Transplant [facility] Start: 09-10-2022 End: 09-10-2023 PSA screening PSA, SCREENING Lab Routine BPH with obstruction/lower urinary tract symptoms Encounter for screening for malignant neoplasm of prostate Expected: 09/10/2022 (Approximate), Expires: 09/10/2023 [facility] Comment on above: Expected: 09/10/2022 (Approximate), Expi res: 09/10/2023 Start: 08-11-2022 End: 08-11-2022 Patient encounter procedure 08/11/2022 Office Visit Urology Ryan Yepez MD [email or web address] [place] [address] Urolog [facility] [place] Start: 07-31-2022 Influenza vaccination [facility] Start: 07-07-2022 End: 07-07-2022 Patient encounter procedure 07/07/2022 Office Visit Urology Ryan Yepez MD [address] [facility] [address] [place] [address] Urolog [facility] [place] Start: 07-07-2022 End: 07-07-2023 FLUORO IMAGING FOR UROLOGY [facility] Comment on above: Expected: 07/07/2022, Expires: 3 1 Occurrences starti ng 07/07/2022 until 07/07/2022 Start: 06-27-2022 End: 06-27-2022 Patient encounter procedure 06/27/2022 Office Visit Urology Ryan Yepez MD [address] [facility] [address] [place] [address] [facility] Start: 06-27-2022 End: 06-27-2023 Basic metabolic 2000 panel - Serum or Plasma BASIC METABOLIC PANEL Lab Routine Other hydronephrosis Expected: 06/27/2022, Expires: 06/27/2023 [facility] Comment on above: Expected: 06/27/2022, Expires: 3 Start: 06-27-2022 End: 06-27-2022 Patient encounter procedure 06/27/2022 Appointment Computerized Tomography Scan Ryan Yepez MD [address] [facility] [address] [place] [address] Department of Radiology Start: 06-15-2022 End: 05-16-2023 CT Abdomen and Pelvis WO contrast CT ABDOMEN/PELVIS WITHOUT CONTRAST Imaging Routine FAYE (acute kidney injury) Expected: 06/15/2022 (Approximate), Expires: 05/16/2023 [facility] Work Phone: Comment on above: Expected: 06/15/2022 (Approximate), Expi res: 05/16/2023 Start: 06-12-2022 End: 06-12-2022 Patient encounter procedure 06/12/2022 Office Visit Transplant Surgery Steve Munoz MBBS [address] [place] [address] [facility] Start: 06-11-2022 End: 06-11-2023 BK VIRUS DNA QN, PCR, PLASMA BK VIRUS DNA QN, PCR, PLASMA Lab Routine Kidney replaced by transplant Liver replaced by transplant Abnormal blood chemistry Expected: 06/11/2022, Expires: 06/11/2023 [facility] Comment on above: Expected: 06/11/2022, Expires: Start: 06-04-2022 End: 06-04-2022 Patient encounter procedure 06/04/2022 Office Visit [facility] Start: 10-18-2021 End: 10-18-2021 Patient encounter procedure 10/18/2021 Office Visit Transplant Surgery Steve Munoz MBBS [address] [place] [address] [facility] Start: 07-31-2021 Influenza vaccination INFLUENZA VACCINE (#1) [facility] Start: 07-26-2021 End: 07-26-2021 Patient encounter procedure 07/26/2021 Office Visit Transplant Surgery [facility] Start: 2021 Prostate specific antigen measurement [facility] Start: 2021 Screening for malignant neoplasm of lung LUNG CANCER SCREENING [facility] Start: 2021 Zoster vaccine hzv live for subcutaneous use ZOSTER (SHINGLES) VACCINE (1 of 2) [facility] Start: 09-20-2020 Colonoscopy COLORECTAL CANCER SCREENING DISCUSSION [facility] Start: 09-20-2020 Screening for malignant neoplasm of colon [facility] Start: 07-31-2019 [facility] Start: 05-22-2019 Annual Wellness Visit (AWV) [facility]AWV[facility] Start: 04-18-2019 End: 10-19-2019 Ultrasonography of abdomen US ABDOMEN RUQ/LIVER/GB Routine Cirrhosis of liver without ascites, unspecified hepatic cirrhosis type Expected: 04/18/2019 (Approximate), Expires: 10/19/2019 [facility] Work Phone: Comment on above: Expected: 04/18/2019 (Approximate), Expi res: 10/19/2019 Start: 01-25-2019 End: 01-25-2019 Ambulatory 01/25/2019 Office Visit Gastroenterology Christin Elizabeth, [employer] [address] [place] [address] Division of Gastroenterology and Hepatology [facility] Start: 11-19-2018 End: 11-19-2018 Ambulatory 11/19/2018 Appointment [facility] Start: 11-19-2018 End: 11-19-2018 Ambulatory [facility] Start: 10-19-2018 End: 10-19-2018 Ambulatory Ultrasound Jakob Start: 10-12-2018 End: 10-12-2019 Hemoglobin A1c/Hemoglobin.total mass fraction (Bld) HEMOGLOBIN A1C Routine Alcoholic cirrhosis, unspecified whether ascites present Pre-transplant evaluation for liver transplant Expected: 10/12/2018, Expires: 10/12/2019 [facility] Work Phone: Comment on above: Expected: 10/12/2018, Expires: 9 Start: 10-12-2018 End: 10-12-2019 TYPE AND SCREEN - NOT FOR TRANSFUSION TYPE AND SCREEN - NOT FOR TRANSFUSION Routine Alcoholic cirrhosis, unspecified whether ascites present Pre-transplant evaluation for liver transplant Expected: 10/12/2018, Expires: 10/12/2019 [facility] Work Phone: Comment on above: Expected: 10/12/2018, Expires: 9 Start: 07-31-2018 Influenza vaccination INFLUENZA VACCINE (#1) [facility] Work Phone: Start: 2011 Fasting lipid profile LIPID SCREENING [facility] Work Phone: Start: 2011 Lipid screen Lipid screen [place] Start: 1990 DTaP/Tdap/Td vaccine (1 - Tdap) DTaP/Tdap/Td vaccine (1 - Tdap) [place] Start: 1990 Hepatitis B vaccination HEP B VACCINE (1 of 3 - 19+ 3-dose series) [facility] Start: 1990 Hepatitis B Vaccine (1 of 3 - Risk Recombivax 3-dose series) Hepatitis B Vaccine (1 of 3 - Risk Recombivax 3-dose series) [place] Start: 1990 Third diphtheria, tetanus and acellular pertussis (DTaP) vaccination [facility] Start: 1990 Zoster vaccine hzv live for subcutaneous use ZOSTER (SHINGLES) VACCINE (1 of 2) [facility] Start: 1990 [facility] Start: 1989 Tetanus vaccination TETANUS [facility] Start: 1986 HIV screen HIV screen [place] Start: 02-17-1984 HIV screening HIV SCREENING DISCUSSION [facility] Work Phone: Start: 1983 COVID-19 VACCINE (1) COVID-19 VACCINE (1) [facility] Start: 1982 DTaP/Tdap/Td vaccine (1 - Tdap) DTaP/Tdap/Td vaccine (1 - Tdap) [place] Start: 1977 Pneumococcal 0-64 years Vaccine (1 of 3 - PCV13) Pneumococcal 0-64 years Vaccine (1 of 3 - PCV13) [place] Start: 1977 PNEUMOCOCCAL VACCINE SERIES (1 - PCV) PNEUMOCOCCAL VACCINE SERIES (1 - PCV) [facility] Start: 1977 PNEUMOCOCCAL VACCINE SERIES (1 of 2 - PCV) PNEUMOCOCCAL VACCINE SERIES (1 of 2 - PCV) [facility] Start: 1977 [facility] Start: 02-17-1976 COVID-19 VACCINE (#1) COVID-19 VACCINE (#1) [facility] Start: 02-17-1976 [facility] Start: 1971 COVID-19 VACCINE (#1) COVID-19 VACCINE (#1) [facility] Start: 1971 Hepatitis B vaccination HEP B VACCINE (1 of 3 - 3-dose series) [facility] Start: 1971 Medicare Annual Wellness (AWV) Medicare Annual Wellness (AWV) [facility] Start: 1971 Screening for malignant neoplasm of colon [facility] Start: 1971 Tetanus vaccination [facility] BK VIRUS DNA QN, PCR , PLASMA BK VIRUS DNA QN, PCR, PLASMA Lab Routine Kidney replaced by transplant Liver replaced by transplant Abnormal blood chemistry 06/12/2022 3:38 PM EDT [facility] CALCULI, URINARY (KIDNEY STONE) CALCULI, URINARY (KIDNEY STONE) Fluids Routine 05/19/2022 8:16 AM EDT [facility] Work Phone: CANNABINOIDS, QUANT (URINE)THC CONFIRMATION CANNABINOIDS, QUANT (URINE)THC CONFIRMATION Routine Alcoholic cirrhosis, unspecified whether ascites present ESRD (end stage renal disease) on dialysis Pre-transplant evaluation for liver transplant 10/12/2018 12:57 PM [facility] Work Phone: End: 09-10-2024 CHEM 6 (LYTES, BUN CREA) [facility] EBV VCA IGG AB EBV VCA IGG AB R outine Alcoholic cirrhosis, unspecified whether ascites present ESRD (end stage renal disease) on dialysis Pre-transplant evaluation for liver transplant 10/12/2018 12:57 PM [facility] Work Phone: Fungus identified in Unspecified specimen by Culture [facility] HLA TYPING (SOLID ORGAN) HLA TYPING (SOLID ORGAN) Routine Alcoholic cirrhosis, unspecified whether ascites present ESRD (end stage renal disease) on dialysis Pre-transplant evaluation for liver transplant 10/12/2018 12:57 PM [facility] Work Phone: HSV 1 AND 2 IGG ANTIBODY HSV 1 AND 2 IGG ANTIBODY Routine Alcoholic cirrhosis, unspecified whether ascites present ESRD (end stage renal disease) on dialysis Pre-transplant evaluation for liver transplant 10/12/2018 12:57 PM [facility] Work Phone: MR Abdomen WO and W contrast IV MRI ABDOMEN WITH AND WITHOUT CONTRAST Imaging Routine Liver lesion Ordered: 06/17/2024 [facility] Comment on above: Ordered: 06/17/2024 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 specific culture [facility] PLACEMENT NEPHROSTOM Y CATHETER PERCUTANEOUS W/ IMAGE GUIDANCE PLACEMENT NEPHROSTOMY CATHETER PERCUTANEOUS W/ IMAGE GUIDANCE Imaging Routine Hydronephrosis due to obstruction of ureteral orifice FAYE (acute kidney injury) 05/17/2022 11:08 AM EDT [facility] RI POST VOID RESIDUAL RI POST VO ID RESIDUAL RI - OFFICE PERFORMED Routine BPH with obstruction/lower urinary tract symptoms Ordered: 09/10/2022 [facility] Comment on above: Ordered: 09/10/2022 PTH INTACT PTH INTACT Routi ne Alcoholic cirrhosis, unspecified whether ascites present ESRD (end stage renal disease) on dialysis Pre-transplant evaluation for liver transplant 10/12/2018 12:57 PM [facility] Work Phone: RUBEOLA IGG AB (IMMU NE STATUS) RUBEOLA IGG AB (IMMUNE STATUS) Routine Alcoholic cirrhosis, unspecified whether ascites present ESRD (end stage renal disease) on dialysis Pre-transplant evaluation for liver transplant 10/12/2018 12:57 PM [facility] Work Phone: End: 01-16-2024 Standard ECG ECG ECG Routine One Time for 1 Occurrences starting 01/16/2024 until 01/16/2024 [facility] Comment on above: One Time for 1 Occurrences starting 12/31 until 01/16/2024 End: 09-10-2024 TACROLIMUS LEVEL, TROUGH (PRE DRUG LEVEL) [facility] VARICELLA IGG AB (IM M STATUS) VARICELLA IGG AB (IMM STATUS) Routine Alcoholic cirrhosis, unspecified whether ascites present ESRD (end stage renal disease) on dialysis Pre-transplant evaluation for liver transplant 10/12/2018 12:57 PM EST [facility] Work Phone: Immunizations Immunization Date Immunization Notes Care Provider Fa cili 11-03-2023 influenza virus vacc ine, unspecified formulation Generic Provider [facility] 11-03-2023 Influenza, injectabl e, [place] Jing Canine Kidney, preservative free, quadrivalent Generic Provider [facility] 11-03-2023 Moderna SARS-CoV-2 50mcg/0.5mL Booster Generic Provider [facility] 08-28-2022 influenza, injectabl e, quadrivalent, preservative free Generic Provider [facility] 09-30-2021 influenza, injectabl e, quadrivalent, preservative free Generic Provider [facility] 10-16-2020 influenza, injectabl e, quadrivalent, contains preservative Generic Provider [facility] Payers Date Payer Category Payer Unknown [id number] 2019 Unknown [facility] [id number] 2019-Present [id number] 2018 Medicaid [place]ICAID [place] [facility] DEPT OF JOB xxxxxxxxxxxx 2018-Present [phone] [address] [place] [address] xxxxxxxxxxxx [id number] 2018 Medicaid MEDICAID MEDICAI D [id number] 2018-Present [address] [place] [address] [id number] .[id number] 2018 Medicaid [id number] .[id number] 2018 Medicare MEDICARE MEDICAR E PART A AND B xxxxxxxxxxx 2018-Present [phone] [address] [address] [place] [address] xxxxxxxxxxx [id number] [id number] 2018 Medicare [id number] 2018 Medicare MEDICARE MEDICAR E A AND B [id number] 2018-Present [address] [place] [address] [id number] .[id number] 2018 Medicare [id number] 1.13.172.2.7.3 .[id number] 1971 Unknown [id number] 2.16.840.1.884745.3.579.2.173 1971 Unknown [id number] 2.16.840.1.411334.3.579.2.173 1971 Unknown [id number] 2.16.840.1.305411.3.579.2.173 1971 Unknown [id number] 2.16.840.1.363929.3.579.2.173 1971 Unknown [id number] 2.16.840.1.209815.3.579.2.173 1971 Unknown [id number] 2.16.840.1.584516.3.579.2.173 1971 Unknown [id number] 2.16.840.1.152677.3.579.2.173 1971 Unknown [id number] 2.16.840.1.586876.3.579.2.173 1971 Unknown [id number] 2.16.840.1.798168.3.579.2.647 1971 Unknown [id number] 2.16.840.1.864370.3.579.2.593 1971 Unknown [id number] 2.16.840.1.942365.3.579.2.593 1971 Unknown [id number] 2.16.840.1.307285.3.579.2.593 1971 Unknown [id number] 2.16.840.1.572695.3.579.2.593 1971 Unknown [id number] 2.16.840.1.832918.3.579.2.593 1971 Unknown [id number] 2.16.840.1.997544.3.579.2.593 1971 Unknown [id number] 2.16.840.1.882243.3.579.2.593 1971 Unknown [id number] 2.16.840.1.404489.3.579.2.593 1971 Unknown [id number] 2.16.840.1.760853.3.579.2.593 1971 Unknown [id number] 2.16.840.1.934420.3.579.2.593 1971 Unknown [id number] 2.16.840.1.487643.3.579.2.593 1971 Unknown [id number] 2.16.840.1.908510.3.579.2.593 1971 Unknown [id number] 2.16.840.1.558855.3.579.2.593 1971 Unknown [id number] 2.16.840.1.727554.3.579.2.593 1971 Unknown [id number] 2.16.840.1.522856.3.579.2.593 1971 Unknown [id number] 2.16.840.1.624109.3.579.2.125 9 1971 Unknown [id number] 2.16.840.1.493762.3.579.2.125 9 1971 Unknown [id number] 2.16.840.1.960060.3.579.2.125 9 1971 Unknown [id number] 2.16.840.1.492872.3.579.2.125 9 1971 Unknown [id number] 2.16.840.1.250963.3.579.2.125 9 1971 Unknown [id number] 2.16.840.1.071928.3.579.2.125 9 1971 Unknown [id number] 2.16.840.1.137251.3.579.2.125 9 1971 Unknown [id number] 2.16.840.1.166522.3.579.2.125 9 1971 Unknown [id number] 2.16.840.1.478615.3.579.2.125 9 1971 Unknown [id number] 2.16.840.1.880997.3.579.2.125 9 1971 Unknown [id number] 2.16.840.1.656440.3.579.2.125 9 1971 Unknown [id number] 2.16.840.1.584964.3.579.2.125 9 1971 Unknown [id number] 2.16.840.1.692346.3.579.2.125 9 1971 Unknown [id number] 2.16.840.1.650162.3.579.2.125 9 1971 Unknown [id number] 2.16.840.1.329953.3.579.2.125 9 1971 Unknown [id number] 2.16.840.1.670698.3.579.2.594 1971 Unknown [id number] 2.16.840.1.280971.3.579.2.594 1971 Unknown [id number] 2.16.840.1.232508.3.579.2.594 1971 Unknown [id number] 2.16.840.1.458359.3.579.2.594 1971 Unknown [id number] 2.16.840.1.907259.3.579.2.594 1971 Unknown [id number] 2.16.840.1.765450.3.579.2.594 1971 Unknown [id number] 2.16.840.1.210543.3.579.2.594 1971 Unknown [id number] 2.16840.1.277045.3.579.2.594 1971 Unknown [id number] 2.16.840.1.644995.3.579.2.594 1971 Unknown [id number] 2.16.840.1.494522.3.579.2.594 1971 Unknown [id number] 2.16840.1.429196.3.579.2.594 1971 Unknown [id number] 2.16840.1.971496.3.579.2.727 1971 Unknown [id number] 2.16840.1.758448.3.579.2.727 1959 Medicaid [id number] 1958 Medicare [id number] Social History Date Type Detail Facility Start: 10-19-2018 End: 11-03-2023 Tobacco smoking status NHIS Former smoker [facility] Start: 07-19-1988 End: 05-14-2018 History of tobacco use Current smoker [facility] Work Phone: Start: 07-19-1988 End: 05-14-2018 History of tobacco use Cigarette Smoker [facility] Work Phone: Start: 10-19-2018 End: 10-27-2023 Cigarettes smoked current (pack per day) - Reported [facility] End: 07-19-1994 History of tobacco use Chews Tobacco [facility] Work Phone: Start: 1970 Sex Assigned At Not on file [facility] Work Phone: Start: 11-03-2018 Alcohol intake Current non-drinker of alcohol (finding) [place] Start: 06-22-2018 Alcohol Comment Hx of alcoholism [place] Start: 11-03-2018 End: 10-27-2023 Alcohol intake No [facility] Start: 07-19-2018 Tobacco use and exposure Former user [facility] Start: 09-06-2020 End: 08-23-2024 Alcohol intake Ex-drinker (finding) [facility] Start: 07-19-2018 Alcohol Comment stopped 05/14/2018 [facility] Start: 05-05-2022 End: 01-16-2023 Exposure to SARS-CoV-2 (event) Not sure [facility] Start: 07-07-2018 Gender identity Identifies as male gender (finding) [facility] Start: 01-16-2022 Sexual orientation Heterosexual (finding) [facility] Start: 11-03-2023 Tobacco use and exposure [...] Never smoked tobacco (finding) [facility] Do you belong to any clubs or organizations such as baptism groups, unions, fraternal or athletic groups, or school groups? Yes [facility] Are you now , , , , never or living with a partner? [facility] Medical Equipment Procedure Code Equipment Code Equipment Original Text Equipment Identifier Dates [id number] Start: 05-23-2020 [id number] Start: 04-12-2020 [id number] FDA Start: 05-17-2022 Comment on above: Description: Implant time-out completed by intra-procedural staff including this RN, emergency room technician, and performing physician. The following was [...] 09-08-2024 Functional Status N/A [facility] Clinical Notes 06-14-2021 to 09-08-2024 Starla [...] urethra. Follow these instructions at home: Take laei-dym-tuxdekw and prescription medicines only as told by [...] provider. Document Revised: 06/04/2022 Document Reviewed: 06/04/2022 [employer] Patient Education 2023 Zazengo. Follow Up Care 08/25/2024 09:38:26 With:Clementina James, URL Address: When:3 months Comments:med increase 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 Screening PSA (prostate specific antigen) (Z12.5: Encounter for screening for malignant neoplasm of prostate) No PSA records on file -Will discuss with patient at his follow up Ordered: E&M of New Patient Moderate 45-59 Min 42528 3. History of kidney transplant (Z94.0: Kidney transplant status) 08/29/24 - BUN 18, Cre 1.3, GFR 58 Pt had liver and kidney transplant in 2020 and follows yearly with [facility]. Ordered: E&M of New Patient Moderate 45-59 Min 47961 Orders: tamsulosin, 0.4 mg = 1 cap(s), Oral, BID, X 30 day(s), # 60 cap(s), Refills(s) 11, Pharmacy: [id number], 170, cm, 09/08/24 14:00:00 EDT, Height/Length Dosing, 90, kg, 09/08/24 14:00:00 EDT, Weight Dosing 46319 Measure Post Void residual urine and/or bladder capacity by US- non-imaging Urnls Dip Stick Auto w/o Microscopy POC 14562 Follow-up With When Contact Information Jaguar CASTILLO, [...] Urine Dipstick: Negative (more content not included)... [facility] Comment on above: Result Comment: Elec [...] Follow these instructions at home: ? Take bwqr-aub-qhgumgt and prescription medicines only as told by [...] develop side effec (more content not included)... [facility] 09-05-2024 History of Present illness Narrative [facility] OP RX OUTREACH ADVANCED: Call Information: Date and Time of Contact: 09/05/2024 3:24 PM Method of Contact: By Phone Contact Type: Prescriptions Contactor: Patient Contactee: [facility] OP Shipping/Pickup: Medicare B Refill?: No Medication Name: Mycophenolate, prograf Delivery Method: Ship Delivery Location: Home Signature Required: No Receive/Pickup Date: 09/06/2024 Shipping Address: [address] [place] [address] [address] Contact Info: Specialty (Yanci) [phone] Jakob [phone] [facility] [phone] Raheem [phone] Bedside Delivery ([facility]) [phone] documented in this encounter [facility] 06-23-2024 History of Present illness Narrative [facility] RX OUTREACH ADVANCED: Call Information: Date and Time of Contact: 06/23/2024 8:52 AM Method of Contact: By Phone Contact Type: Prescriptions Contactor: [facility] OP Contactee: Patient Shipping/Pickup: Medicare B Refill?: No Medication Name: Prograf 0.2mg Delivery Method: Ship Delivery Location: Home Signature Required: No Receive/Pickup Date: 06/29/2024 Shipping Address: [address] [place] [address] [address] Contact Info: Specialty (Yanci) [phone] Jakob [phone] [facility] [phone] Raheem [phone] Bedside Delivery ([facility]) [phone] documented in this encounter [facility] 06-17-2024 History of Present illness Narrative -Referring Provider for today's consult: Self, Self -Primary Care Provider: Zuly Bruno History of Present Illness George Styles is a 54 y.o. male who presents to the [facility] Transplant Hepatology Clinic today for follow-up [...] Left; Surgeon: Jyoti Bryant MD, PhD; Location: [facility] MAIN OR PLACEMENT NEPHROSTOMY CATHETER PERCUTANEOUS W/ IMAGE GUIDANCE 05/17/2022 Surgeon: Enzo Heart DO; Location: [facility] INTERVENTIONAL RADIOLOGY (VIR) LIVER TRANSPLANT, ORTHOTOPIC N/A 04/12/2020 Laterality: N/A; Surgeon: LU Palma; [facility] MAIN OR KIDNEY TRANSPLANT W/O COQUILLE NEPHRECTOMY N/A 04/12/2020 Laterality: N/A; Surgeon: LU Palma; Location: [facility] SAME DAY SURGERY MAIN [...] 0.2 06/13/2024 Explant Pathology Pathologic Diagnosis A. [place] liver, orthotopic liver transplant resection (1458 gram): [...] up in 1 year. Daisha Max DO Weave Room Supervisor Gastroenterology, Hepatology and Nutrition [facility] Pager: [phone] Images from the original note were not included. 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 Grill Attendant: Anayeli Burt Date of Liver Transplant: 04/13/2020 (Kidney), 04/13/2020 (Liver) 4 years, 2 months post Liver/Kidney Transplant Primary Disease: Hypertensive Nephrosclerosis Transplant Paste Up Copy Camera Operator: Erma Roe/ Daisha Max Primary Care physician: Zuly Bruno Last Transplant Clinic appointment :06/12/23 with WAITER/WAITRESS DINING CAR Matt combined liver/kidney transplant from a Donation [...] LAB AND PHARMACY: None Specified [id number] [place] [address] - [address] [facility] [address] [facility] [address] [facility] [place] [facility] [address] [facility] [facility] [address] [id number] [place] [address] [address] [facility] [address] [facility] [address] [facility] Jakob [address], [address] [place] [address] ROS and SCREEN: Chest Pain: negative Cough: [...] year: no Do you follow with a Supplier Quality Engineer? yes Do you have a Primary Care [...] ADDRESS WITH PHYSICIAN: [facility] Instructions Ashlee Fair RN - 06/17/2024 10:00 AM EDT - No medication changes from a liver standpoint - A MRI Abdomen has been ordered today. Please call central scheduling at [phone] to schedule or take paper copy to your local hospital - Return to clinic 06/16/2025 TRANSPLANT HEPATOLOGY 3, [facility] as scheduled documented in this encounter [facility] 06-17-2024 History of Present illness Narrative Images from the original note were not included. George Styles is a 54 y.o. 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 No longer follows with a local tea bag machine tender. History of Present Illness: Since George was [...] and lab results. Rebeca Gutierrez MSN, RN, SUPERINTENDENT [employer]-BC, CCTN Certified Nurse Practitioner [facility] [address] [facility] [address] documented in this encounter [facility] 06-17-2024 Instructions JEANNA Hess - 06/17/2024 9:30 AM EDT Tacrolimus - increase to 0.2 mg packet three time per day; goal 3 to 5 ng/dL ; when the itraconazole stops 09/03/2024, reduce to 0.5 mg twice daily. Once your tacrolimus level is 3-5 ng/dL, you may reduce labs to every other week. documented in this encounter [facility] 05-26-2024 History of Present illness Narrative [facility] OP RX OUTREACH ADVANCED: Call Information: Date and Time of Contact: 05/26/2024 4:35 PM Method of Contact: By Phone Contact Type: Prescriptions Contactor: [facility] OP Contactee: Patient Contact Outcome: Left message and Follow-up Contact Info: Specialty (Yanci) [phone] Jakob [phone] [facility] [phone] Raheem [phone] Bedside Delivery ([facility]) [phone] [facility] RX OUTREACH ADVANCED: Call Information: Date and Time of Contact: 05/30/2024 4:52 PM Method of Contact: By Phone Contact Type: Prescriptions Contactor: Patient Contactee: [facility] OP Shipping/Pickup: Medicare B Refill?: No Medication Name: Myco sod 360mg, Prograf 0.2mg Delivery Method: Ship Delivery Location: Home Signature Required: No Receive/Pickup Date: 06/06/2024 Shipping Address: [address] [facility] [address] [place] [address] Contact Info: Specialty ([place]) [phone] [facility] [phone] [facility] [phone] Raheem [phone] Bedside Delivery ([facility]) [phone] documented in this encounter [facility] 05-13-2024 Note [place] [facility] Subjective George Styles is [...] , Rfl: t (more content not included)... [facility] 03-24-2024 History of Present illness Narrative [facility] RX OUTREACH ADVANCED: Call Information: Date and Time of Contact: 03/24/2024 4:14 PM Method of Contact: By Phone Contact Type: Prescriptions Contactor: [facility] OP Contactee: Patient Contact Outcome: Left message Shipping/Pickup: Medication Name: Prograf 0.2mg pack Contact Info: Specialty ([place]) [phone] [facility] [phone] [facility] [phone] Raheem [phone] Bedside Delivery ([facility]) [phone] [facility] RX OUTREACH ADVANCED: Call Information: Date and Time of Contact: 03/28/2024 3:58 PM Method of Contact: By Phone Contact Type: Prescriptions Contactor: [facility] OP Contactee: Patient Contact Outcome: Left message and Call back later Shipping/Pickup: Medication Name: Mycophenolate, prograf Contact Info: Specialty ([place]) [phone] [facility] [phone] [facility] [phone] Raheem [phone] Bedside Delivery ([facility]) [phone] [facility] RX OUTREACH ADVANCED: Call Information: Method of Contact: By Phone Contact Type: Prescriptions Contactor: Patient Contactee: [facility] OP Shipping/Pickup: Medicare B Refill?: No Medication Name: Mycopheolate 360mg and Prograf Delivery Method: Ship Delivery Location: Home Signature Required: No Receive/Pickup Date: 04/04/2024 Shipping Address: [address] [place] [address] [address] Contact Info: Specialty ([place]) [phone] [facility] [phone] [facility] [phone] Raheem [phone] Bedside Delivery ([facility]) [phone] documented in this encounter [facility] 03-24-2024 History of Present illness Narrative [facility] RX OUTREACH ADVANCED: Call Information: Date and Time of Contact: 03/24/2024 4:14 PM Method of Contact: By Phone Contact Type: Prescriptions Contactor: [facility] OP Contactee: Patient Contact Outcome: Left message Shipping/Pickup: Medication Name: Prograf 0.2mg pack Contact Info: Specialty ([place]) [phone] [facility] [phone] [facility] [phone] Raheem [phone] Bedside Delivery ([facility]) [phone] [facility] RX OUTREACH ADVANCED: Call Information: Date and Time of Contact: 03/28/2024 3:58 PM Method of Contact: By Phone Contact Type: Prescriptions Contactor: [facility] OP Contactee: Patient Contact Outcome: Left message and Call back later Shipping/Pickup: Medication Name: Mycophenolate, prograf Contact Info: Specialty ([place]) [phone] [facility] [phone] [facility] [phone] Raheem [phone] Bedside Delivery ([facility]) [phone] [facility] RX OUTREACH ADVANCED: Call Information: Method of Contact: By Phone Contact Type: Prescriptions Contactor: Patient Contactee: [facility] OP Shipping/Pickup: Medicare B Refill?: No Medication Name: Mycopheolate 360mg and Prograf Delivery Method: Ship Delivery Location: Home Signature Required: No Receive/Pickup Date: 04/04/2024 Shipping Address: [address] [place] [address] [address] Contact Info: Specialty ([place]) [phone] [facility] [phone] [facility] [phone] [facility] [phone] Bedside Delivery ([facility]) [phone] [facility] RX OUTREACH ADVANCED: Pre-Verification/Specialty Assessment/Disease [...] Within normal limits Contact Info: Specialty ([place]anc[place]) [phone] [facility] [phone] [facility] [phone] Raheem [phone] Bedside Delivery ([facility]) [phone] documented in this encounter [facility] 03-02-2024 History of Present illness [...] del of broth Contact Info: Specialty ([place]) [phone] [facility] [phone] [facility] [phone] Raheem [phone] Bedside Delivery ([facility]) [phone] [facility] RX OUTREACH ADVANCED: Call Information: Date and Time of Contact: 03/02/2024 3:49 PM Method of Contact: By Phone Contact Type: Prescriptions Contactor: [facility] OP Contactee: Patient Contact Outcome: Left message and Follow-up Shipping/Pickup: Medication Name: Myco 360mg and Prograf 0.2mg Contact Info: Specialty ([place]) [phone] [facility] [phone] [facility] [phone] Raheem [phone] Bedside Delivery ([facility]) [phone] [facility] RX OUTREACH ADVANCED: Call Information: Date and Time of Contact: 03/02/2024 4:08 PM Method of Contact: By Phone Contact Type: Prescriptions Contactor: [facility] OP Contactee: Patient Shipping/Pickup: Medicare B Refill?: No Medication Name: Myco 360 / prograf 0.2 Delivery Method: Ship Delivery Location: Home Signature Required: No Receive/Pickup Date: 03/03/2024 Shipping Address: [address] [place] [address] [address] Contact Info: Specialty ([place]) [phone] [facility] [phone] [facility] [phone] Raheem [phone] Bedside Delivery ([facility]) [phone] documented in this encounter [facility] 02-26-2024 History of Present illness Narrative [...] to the HF Clinic at the [facility] on 02/26/2024 [...] Left; Surgeon: Jyoti Bryant MD, PhD; Location: [facility] MAIN OR PLACEMENT NEPHROSTOMY CATHETER PERCUTANEOUS W/ IMAGE GUIDANCE 05/17/2022 Surgeon: Enzo Heart DO; Location: [facility] INTERVENTIONAL RADIOLOGY (VIR) LIVER TRANSPLANT, ORTHOTOPIC N/A 04/12/2020 Laterality: N/A; Surgeon: LU Palma; Location: [facility] SAME DAY SURGERY MAIN OR KIDNEY TRANSPLANT W/O COQUILLE NEPHRECTOMY N/A 04/12/2020 Laterality: N/A; Surgeon: LU Palma; Location: [facility] SAME DAY SURGERY MAIN [...] qd Antithrombotic: no Statin: no ICD: NA JOB COACH: NA CV Test results: ECHOCARDIOGRAM 01/18/2024 (Final) Interpretation Summary Left Ventricle: Chamber size is normal. Increased wall thickness. Concentric hypertrophy. Normal global systolic function. Regional wall motion is normal. Ejection fraction is normal (55 - 60%). Right Ventricle: Chamber size is normal. Systolic function is low normal. No hemodynamically significnat valve disease. Moderate pericardial effusion. There is no evidence of tamponade. [facility] (01/20/24) Hemodynamic Summary: Baseline Hemodynamics Systemic BP [...] will be BP control. Candie Almaguer M.D. brush holder assembler Advanced Heart Failure Program Division of Cardiovascular Medicine [facility] [email or web address] ph [phone] fax [phone] documented in this encounter [facility] 02-26-2024 Instructions Marsha Mckeon RN - 02/26/2024 9:30 AM EDT The following instructions were given today: Labs today Follow up with Dr. Almaguer as needed. Your after visit summary (AVS) is viewable in [facility] My Chart. Call RN if you have cardiac questions/concerns M-F 8 to 4:30 ; office # [phone], option 6, then option 2. Guidelines for home management: 1. Continue to monitor weight first thing each morning. 2. Report to the CHF CLINIC ([phone]) any significant weight change. Remember that weight [...] to have labs/tests run outside of the [facility] and you do not hear from us 1-2 days after they are performed, you must call us to ensure we received the results. Office fax # [phone]. No news does not necessarily mean that your tests are normal, it could mean we did not get the results. For questions/updates: please provide your name with spelling, date of and question or update All calls are prioritized and responses researched, if possible, prior to calls being returned. Call Scheduling for any appointment/procedure verification or changes [phone], option 7 or [facility] Heart Schedulers at [phone], option 1. documented in this encounter [facility] 01-23-2024 Nurse Note Jakob wrap & [...] to transport home on home oxygen supply. [facility] 01-23-2024 Miscellaneous Notes Jakob wrap & [...] Pain): verbalization of pain descriptors George Styles ([id number]) PRE OPERATIVE DIAGNOSIS High output congestive heart failure [I50.83] POST OPERATIVE DIAGNOSIS Post-Op Diagnosis Codes: * High output congestive heart failure [I50.83] PROCEDURE PERFORMED Procedure(s) (LRB): LIGATION ANGIOACCESS AVF (Left) Resection of large aneurysmic vein PRIMARY CLOSURE Yes INTRAOPERATIVE FINDINGS No significant abnormalities SURGEON Surgeons and Role: * Jyoti Bryant MD, PhD - Primary ANESTHESIOLOGIST Anesthesiologist: Celena Tiwari MD; Kehinde Gutierrez MD PROVIDER ENROLLMENT SPECIALIST: Raheem Jasso APRN-PROVIDER ENROLLMENT SPECIALIST Controller Repairer And Tester Assisting: Mini Khan MD SURGICAL STAFF Enamel Buffer: Zoila Lawrence RN Relief Enamel Buffer: Marimar Saravia RN Relief Scrub: Briseyda Self [...] patient breathing easily. Report received from surgical scheduler and report received from anesthesiology. Pt arrived [...] Axillary block. SURGEON(S): Jyoti Bryant MD, PHD MANAGER COMMUNITY DEVELOPMENT: Mynor Fall MD ESTIMATED BLOOD LOSS: Minimal. [...] Jyoti Bryant MD, PHD ATTENDING SHANNON/Constanza JOB: [id number] DOC: [id number] Patient has been asleep this shift. He [...] overnight coverage, Jasper Gastelum MD, via pager #[phone] Pt- George Styles. Sarah 1082. TM1. Was wondering if he can have his Melatonin order increased to 6mg. Per pt, he usually takes 8mg at home. -SAMI Duffy #[phone] Tati Charles RN Internal Medicine Daily Progress Note Patient: George Styles, 1970, [id number] Physician: Arelis Mera MD, PGY3, Pager #[phone], TM1 service Assessment/Plan: George Styles is a [...] home amlodipine 5mg CAD: non-obstructive CAD on [facility] 2018. - continue home aspirin 81mg [...] Asada, MD Mr. Styles was admitted to [address] [place] [address]. On admission to R[facility], from outside facility a dual RN initial assessment of skin condition was performed by Izzy Gutierrez RN and Leroy Singleton RN. Skin Assessment: Skin within defined limits:Yes Jose Score: 20 Wound Vision Stewardess Supervisor images obtained: No LDA Added: No [...] when available. documented in this encounter [facility] 01-23-2024 Nurse Note Home Oxygen [...] 4L of oxygen is also required.) [facility] 01-23-2024 History of Present illness [...] mg Oral Daily Kelvin Pacheco MD, MBBS astrophysics professor Transplant nephrology Surgery Post-Op Check Note [...] monitor Leonel Harris DO General Surgery Pager [phone] CM went to bedside to talk with patient. Patient states he has home oxygen through [employer]. He uses 2.5 LNC around the clock. Patient states his brother will bring a tank for discharge. Anticipate patient will discharge tomorrow AM. Brother updated. Girish Oro RN, BSN Clinical Topper Press Operator Please note that I am a float case specialist and may not cover the same service every day. Please call the main Case Management office at [phone] for up-to-date coverage. Verified patients identity using [...] Daily Progress Note Patient: George Styles, 1970, [id number] Physician: Yury Ozuna MD, PGY1, Pager #[phone], TM1 service Assessment/Plan: George Styles is a [...] by transplant surgery on 01/22 (NPO at ok, updated type & screen) S/p Liver-Kidney Transplant [...] home amlodipine 5mg CAD: non-obstructive CAD on [facility] 2018. - continue home aspirin 81mg [...] with the Nutrition plan outlined in the Acid Washer Operator s note. DVT prophylaxis with lovenox [...] in resident note. Kelvin Pacheco MD, MBBS astrophysics professor Transplant nephrology Patient seen and examined [...] Oral BID AC Kelvin Pacheco MD, MBBS astrophysics professor Transplant nephrology Images from the original note were not included. Internal Medicine Daily Progress Note Patient: George Styles, 1970, [id number] Physician: Yury Ozuna MD, PGY1, Pager #[phone], LT4 service Assessment/Plan: George Styles is a 53 [...] with the Nutrition plan outlined in the Acid Washer Operator s note. DVT prophylaxis with lovenox [...] [facility] [place] [place] Other Comments: Patient reported his Last Home Dose of mycophenolate and tacrolimus was on 01/15/24 at 0700. Medications that need removed from Outside Medication Reconciliation list: Please remove all medications. Please feel free to contact me with any further questions. Name: Heidy Chatman Phone #: [phone] Date/Time: 01/19/2024 12:08 PM Time Spent: 15 minutes Associated attestation - Fidelina Alarcon RPH - 01/19/2024 12:41 PM EST Department of Pharmacy Admission Medication Reconciliation Note Patient: George Styles Room/Bed: 1082/A I have reviewed the home medication list with the Barrel Charrer Helper. The home medication list status is: complete. All changes to the home medication list have been updated in [facility]. Updated FELT WASHING MACHINE TENDER Med List: Prior to Admission Medications [...] Name: Fidelina Angel Alarcon [facility] Phone #: [phone] Date/Time: 01/19/2024 12:41 PM Internal Medicine Daily Progress Note Patient: George Styles, 1970, [id number] Physician: Yury Ozuna MD, PGY1, Pager #[phone], GT7 service Assessment/Plan: Acute Hypoxic Respiratory Insufficiency GARCIA, [...] with the Nutrition plan outlined in the Acid Washer Operator s note. DVT prophylaxis with lovenox [...] mg Oral Daily Kelvin Pacheco MD, MBBS astrophysics professor Transplant nephrology Internal Medicine Daily Progress Note Patient: George Styles, 1970, [id number] Physician: Yury Ozuna MD, PGY1, Pager #[phone], TM0 service Assessment/Plan: Updates: - continued diuresis with [...] home amlodipine 5mg CAD: non-obstructive CAD on [facility] 2018. - continue home aspirin 81mg [...] with the Nutrition plan outlined in the Acid Washer Operator s note. DVT prophylaxis with lovenox [...] in resident note. Kelvin Pacheco MD, MBBS astrophysics professor Transplant nephrology Pt known to surfacer from previous admissions. Provided emotional and spiritual support. Patient shared about: family support, medical course Call Center Agent provided: - Supportive presence - Active listening - Validation of feelings/emotions Patient encouraged to request a surfacer as needed. Chaplains are available in-house 24 hours a day and 7 days a week. For urgent matters in [facility], please page [phone]. If the request is not urgent, please enter a consult. Consults are responded to within 24 hours. Senior Staff Call Center Agent Angie Singh Mdiv, [facility] [place] [phone] [email or web address] On-call : barrel bridge assembler Raheem: 22/06 Pager ,[facility], and Brock Hernandez Pager [phone] 01/18/24 1342 Clinical Encounter Type Visited With Patient Visit Type Introduction Pastoral Time Spent 15 min Referral Other (See Comment) (rounding) Spiritual Assessment Emotional Observation Coping well;Anxiety Hope Observation Specific hope focus Support Observation By Family Interventions Provided Active listening;Supportive presence Facilitated Verbalization of feelings;Identifying support system;Identifying Sources of spiritual well-being Explored Expectations;Treatment decisions Heavy Duty Mechanic Education Heavy Duty Mechanic Service Available Yes Educated Patient Outcomes Patient [...] interaction. Name: Fidelina DavisMOJGAN patel Phone #: [phone] Date/Time: 01/18/2024 9:56 AM Discharge Planning Patient [...] Yes Name and Contact information: Gian Styles ([phone]) Would you like to add additional adult [...] oxygen?: Yes Oxygen Provider and Contact : [employer] Liter-Flow?: Order for oxygen use?: unknown at [...] patient on Anticoagulation? : No [id number] - [place] [address] - [address] [place] [phone] Sales Representative Printing Does the patient or healthcare representative express financial concerns? : No Employed?: Disabled Coping/Stress Concerns about patient s coping and stress?: No Concerns about patient s caregiver s coping and stress?: No Values and Beliefs Cultural or taoism practices that may impact discharge planning and/or [...] Plan 1. Identified self and role as Topper Press Operator. 2. Confirmed and updated demographics and treatment team. 3. Topper Press Operator will continue to follow with medical team for any other additional discharge needs. Kasandra DON RN *Please note I am float and work Thursday and Thursday every other week. Please call [phone] for assist in my absence. Internal Medicine Daily Progress Note Patient: George Styles, 1970, [id number] Physician: Yury Ozuna MD, PGY1, Pager #[phone], TM1 service Assessment/Plan: Updates: - continue diuresis [...] home amlodipine 5mg CAD: non-obstructive CAD on [facility] 2018. - continue home aspirin 81mg [...] ordered 2D echo. Kevin Prince MD, FASN Weave Room Supervisor of Clinical Medicine [facility] documented in this encounter [facility] 01-23-2024 Plan of care note Patient [...] Symptoms (Acute Pain): verbalization of pain descriptors [facility] 01-22-2024 Hospital Discharge instructions Arelis Mera [...] your doctor for further instructions. Please call [phone], Option 1 or [phone] to schedule your appointment with the Heart Failure [facility]. Arelis Mera MD - 01/22/2024 3:08 PM EST You can change your dressing 48 hours from the procedure The following attachments cannot be sent through Care Everywhere.Heart Failure: Avoiding Triggers (Czech)Heart Failure: Limiting Sodium (Czech)Pain and Pain Control ([facility]) (Czech)documented in this encounter [facility] 01-22-2024 Surgery Postoperative evaluation and management note George Feliz Jensen ([id number]) PRE OPERATIVE DIAGNOSIS High output congestive heart failure [I50.83] POST OPERATIVE DIAGNOSIS Post-Op Diagnosis Codes: * High output congestive heart failure [I50.83] PROCEDURE PERFORMED Procedure(s) (LRB): LIGATION ANGIOACCESS AVF (Left) Resection of large aneurysmic vein PRIMARY CLOSURE Yes INTRAOPERATIVE FINDINGS No significant abnormalities SURGEON Surgeons and Role: * Jyoti Bryant MD, PhD - Primary ANESTHESIOLOGIST Anesthesiologist: Celena Tiwari MD; Kehinde Gutierrez MD PROVIDER ENROLLMENT SPECIALIST: Raheem Jasso APRN-PROVIDER ENROLLMENT SPECIALIST Controller Repairer And Tester Assisting: Mini Khan MD SURGICAL STAFF Enamel Buffer: Zoila Lawrence RN Relief Enamel Buffer: Marimar Saravia RN Relief Scrub: Briseyda Self Scrub Person: Cinda Mai RN Resident Assisting: Leonel Harris DO Fellow: Miki Mcgowan MD, MBBS COMPLICATIONS None ESTIMATED BLOOD LOSS Minimal SPECIMENS No specimen sent * No specimens in log * Jyoti Bryant MD, PhD January 22, 2024 1:34 PM [facility] Work Phone: 01-22-2024 Nurse Note Arrived to PACU assisted by anesthesiology. Connected to monitors. Turned side to side, OR linens removed, repositioned. Airway patent, patient breathing easily. Report received from surgical scheduler and report received from anesthesiology. Pt arrived awake. VSS. Sats slightly low. Pulm rehab used. Sats currently 3lpm @ 93%. Pt states he uses CPAP nocturnally. A&Ox4. Nerve block left arm, elevated. [facility] 01-22-2024 Surgery Postoperative evaluation and [...] Axillary block. SURGEON(S): Jyoti Bryant MD, PHD MANAGER COMMUNITY DEVELOPMENT: Mynor Fall MD ESTIMATED BLOOD LOSS: Minimal. [...] Jyoti Bryant MD, PHD ATTENDING SHANNON/Constanza JOB: [id number] DOC: [id number] [facility] 01-22-2024 Plan of care note [...] Plan Of Care Reviewed With: patient [facility] 01-20-2024 Consult note Associated Order (s): IP CONSULT TO SURGERY - TRANSPLANT (RENAL) Images from the original note were not included. TRANSPLANT SURGERY CONSULT NOTE: Consult: 01/20/2024, 4:03 PM Motor And Controls Tester: Starla Morris MD Reason for Consult: Requesting [...] GUIDANCE 05/17/2022 Surgeon: Enzo Heart DO; Location: [facility] INTERVENTIONAL RADIOLOGY (VIR) LIVER TRANSPLANT, ORTHOTOPIC N/A 04/12/2020 Laterality: N/A; Surgeon: LU Palma; Location: [facility] SAME DAY SURGERY MAIN OR KIDNEY TRANSPLANT W/O COQUILLE NEPHRECTOMY N/A 04/12/2020 Laterality: N/A; Surgeon: LU Palma; Location: [facility] SAME DAY SURGERY MAIN [...] 10 mg 10 mg Intravenous Q6H PRN Yruy Ozuna MD 10 mg at 01/17/24 2345 [...] Studies: Labs-CBC: WBC/Hgb/Hct/Plts: 3.79/12.5/38.9/166 (01/20 611) Labs-Chem 7([facility]): Bun/Creat/Cl/CO2/Glucose: 15/1.12/105/28/88 (01/20 611) Na/K+/Phos/Mg/Ca: 141/3.8/--/1.6/-- [...] seen and staffed with Dr. Mcgowan fellow bloom conveyor operator Thank you, Starla Morris MD Associated attestation - Jyoti Bryant MD, PhD - 01/22/2024 10:54 AM EST Beata Bryant MD, PhD, have independently seen and examined the patient, reviewed the labs, discussed the patient with the fellow/resident and agree with the note. [facility] Work Phone: 01-20-2024 Consult note Associated Order (s): IP CONSULT TO SURGERY - TRANSPLANT (RENAL) Images from the original note were not included. TRANSPLANT SURGERY CONSULT NOTE: Consult: 01/20/2024, 4:03 PM Motor And Controls Tester: Starla Morris MD Reason for Consult: Requesting Dr Carson Bryant for AVF revision/closure given new onset high output heart failure George Styles is a 53 y.o. male CURRENT HOSPITALIZATION LOS: Admit Date: 01/16/2024 [facility] Hospital LOS: 4 days George Styles [...] DAY SURGERY MAIN OR KIDNEY TRANSPLANT W/O COQUILLE NEPHRECTOMY N/A 04/12/2020 Laterality: N/A; Surgeon: LU [...] Studies: Labs-CBC: WBC/Hgb/Hct/Plts: 3.79/12.5/38.9/166 (01/20 611) Labs-Chem 7([facility]): Bun/Creat/Cl/CO2/Glucose: 15/1.12/105/28/88 (01/20 611) Na/K+/Phos/Mg/Ca: 141/3.8/--/1.6/-- [...] seen and staffed with Dr. Mcgowan fellow bloom conveyor operator Thank you, Starla Morris MD Associated [...] DAY SURGERY MAIN OR KIDNEY TRANSPLANT W/O COQUILLE NEPHRECTOMY N/A 04/12/2020 Laterality: N/A; Surgeon: LU [...] (order for outpatient) Please SecureChat or Call ([phone]) for any questions. Await attending attestation for final recommendations. Hank Noel MD Division of Gastroenterology, Hepatology, and Nutrition Clinical Fellow, PGY-5 Pager: [phone] For urgent/stat calls or consults 5pm to 7am, please page the on-call GI fellow on QGenda. [facility]--> Internal Medicine--> Gastroenterology, Hepatology, & [...] Hepatology consults fellow or CARLOS A on [employer]. [facility]--> Internal Medicine--> Gastroenterology, Hepatology, & [...] Estrada MD, MSc documented in this encounter [facility] 01-19-2024 Nurse Note 01/19/24 0900 Vitals [...] rest, 95-96% when talking/moving. Paulette Cordon RN [facility] 01-19-2024 Nurse Note Paged overnight coverage, Jasper Gastelum MD, via pager #[phone] Pt- George Styles. Sarah 1082. TM1. Was wondering if he can have his Melatonin order increased to 6mg. Per pt, he usually takes 8mg at home. -SAMI Duffy #[phone] Tati Charles RN [facility] 01-18-2024 Consult note Associated Order (s): IP CONSULT TO HEPATOBILIARY [facility] OS Main Hepatology Consult WebExchange --> IM Consult Serv [facility] --> [facility] Main Hepatology consult service Fellow [...] Surgeon: Enzo Heart DO; [facility] INTER[facility]AL RAD[facility] (VIR) LIVER TRANSPLANT, ORTHOTOPIC N/A 04/12/2020 Laterality: N/A; Surgeon: LU Palma; Location: [facility] SAME DAY SURGERY MAIN OR KIDNEY TRANSPLANT W/O COQUILLE NEPHRECTOMY N/A 04/12/2020 Laterality: N/A; Surgeon: LU Palma; Location: [facility] SAME DAY SURGERY MAIN [...] (order for outpatient) Please SecureChat or Call ([phone]) for any questions. Await attending attestation for final recommendations. Hank Noel MD Division of Gastroenterology, Hepatology, and Nutrition Clinical Fellow, PGY-5 Pager: [phone] For urgent/stat calls or consults 5pm to 7am, please page the on-call GI fellow on QGenda. [facility]--> Internal Medicine--> Gastroenterology, Hepatology, & [...] consults fellow or CARLOS A on [employer]Genda. [facility]--> Internal Medicine--> Gastroenterology, Hepatology, & [...] (order for outpatient) Michael Estrada MD, MSc [facility] Work Phone: 01-16-2024 Plan of care note Internal Medicine Daily Progress Note Patient: George Styles, 1970, [id number] Physician: Arelis Mera MD, PGY3, Pager #[phone], TM1 service Assessment/Plan: George Styles is a [...] home amlodipine 5mg CAD: non-obstructive CAD on [facility] 2018. - continue home aspirin 81mg [...] on rounds. Signed, Arelis Mera MD [facility] 01-16-2024 Nurse Note Mr. Styles was admitted to [address] [place] [address]. On admission to [facility], from outside facility a dual RN initial assessment of skin condition was performed by Izzy Gutierrez RN and Leroy Singleton RN. Skin Assessment: Skin within defined limits:Yes Jose Score: 20 Wound Vision Stewardess Supervisor images obtained: No LDA Added: No [...] closest to nurses station when available. [facility] 01-16-2024 History and physical note Images from the original note were not included. Internal Medicine Admission History & Physical Patient: George Styles, 1970, [id number] Physician: Timothy Joseph MD, PGY1, Pager #[phone], TM 1 service Date of face to [...] GUIDANCE 05/17/2022 Surgeon: Enzo Heart DO; Location: [facility] INTERVENTIONAL RADIOLOGY (VIR) LIVER TRANSPLANT, ORTHOTOPIC N/A 04/12/2020 Laterality: N/A; Surgeon: LU Palma; Location: [facility] SAME DAY SURGERY MAIN OR KIDNEY TRANSPLANT W/O COQUILLE NEPHRECTOMY N/A 04/12/2020 Laterality: N/A; Surgeon: LU Palma; Location: [facility] SAME DAY SURGERY MAIN [...] itraconazole Fax results to: Dr. White - [phone] Transplant Neph - [phone] Gabapentin 400 MG capsule Sig: Take 1 [...] erythema: Skin: No jaundice or rash Neuro: tablet repair 3-7, 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 Strength grossly [...] home amlodipine 5mg CAD: non-obstructive CAD on [facility] 2019. - continue home aspirin 81mg daily Gout: continue home allopurinol 200mg daily BPH: continue home flomax 0.4mg daily Complexity. Obesity Body mass index is 32.8 kg/m . - Follow with PCP for dietary and lifestyle modifications. Any conditions listed below are present on admission unless otherwise specified. . DVT prophylaxis with lovenox Disposition: admitted to [facility] Code status is Full [...] Pierson, Luisa Steven, Renee Rivera, Daisha Max Grill Attendant: José Miguel Garnica All Txt: 04/13/2020 [...] results found for: CYCLOSPORIN , CYCLOSPORIN2 , [id number] , CYCLORAND No results found for: SIROLIMUS [...] request in chart. Kevin Prince MD Pager [phone] [facility] 01-16-2024 History and physical note Images from the original note were not included. Internal Medicine Admission History & Physical Patient: George Styles, 1970, [id number] Physician: Timothy Joseph MD, PGY1, Pager #[phone], TM 1 service Date of face to [...] GUIDANCE 05/17/2022 Surgeon: Enzo Heart DO; Location: [facility] INTERVENTIONAL RADIOLOGY (VIR) LIVER TRANSPLANT, ORTHOTOPIC N/A 04/12/2020 Laterality: N/A; Surgeon: LU Palma; Location: [facility] SAME DAY SURGERY MAIN OR KIDNEY TRANSPLANT W/O COQUILLE NEPHRECTOMY N/A 04/12/2020 Laterality: N/A; Surgeon: LU Palma; Location: [facility] SAME DAY SURGERY MAIN [...] itraconazole Fax results to: Dr. White - [phone] Transplant Neph - [phone] Gabapentin 400 MG capsule Sig: Take 1 [...] erythema: Skin: No jaundice or rash Neuro: tablet repair 3-7, 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 Strength grossly [...] home amlodipine 5mg CAD: non-obstructive CAD on [facility] 2018. - continue home aspirin 81mg [...] Pierson, Luisa Steven, Renee Rivera, Daisha Max Grill Attendant: José Miguel Garnica All Txt: 04/13/2020 [...] results found for: CYCLOSPORIN , CYCLOSPORIN2 , [id number] , CYCLORAND No results found for: SIROLIMUS [...] request in chart. Kevin Prince MD Pager [phone] documented in this encounter [facility] 01-12-2024 History of Present illness Narrative [...] Prograf 0.2 MG Contact Info: Specialty ([place]) [phone] [facility] [phone] [facility] [phone] Raheem [phone] Bedside Delivery ([facility]) [phone] [facility] RX OUTREACH ADVANCED: Call Information: Date and Time of Contact: 01/25/2024 10:23 AM Method of Contact: By Phone Contact Type: Prescriptions Contactor: [facility] Contactee: Patient Contact Outcome: Left message (prograf myco) Contact Info: Specialty ([place]) [phone] [facility] [phone] [facility] [phone] Raheem [phone] Bedside Delivery ([facility]) [phone] documented in this encounter [facility] 01-12-2024 History of Present illness Narrative [...] Name: Prograf 0.2 MG Contact Info: Specialty ([place]) [phone] [facility] [phone] [facility] [phone] Raheem [phone] Bedside Delivery ([facility]) [phone] [facility] RX OUTREACH ADVANCED: Call Information: Date and Time of Contact: 01/25/2024 10:23 AM Method of Contact: By Phone Contact Type: Prescriptions Contactor: [facility] Contactee: Patient Contact Outcome: Left message (prograf myco) Contact Info: Specialty ([place]) [phone] [facility] [phone] [facility] [phone] [facility] [phone] Bedside Delivery ([facility]) [phone] [facility] RX OUTREACH ADVANCED: Call Information: Date and Time of Contact: 01/27/2024 10:19 AM Method of Contact: By Phone Contact Type: Prescriptions Contactor: [facility] Contactee: Patient Contact Outcome: Left message (myco prograf) Contact Info: Specialty ([place]) [phone] [facility] [phone] [facility] [phone] Raheem [phone] Bedside Delivery ([facility]) [phone] documented in this encounter [facility] 01-12-2024 History of Present illness Narrative [...] Prograf 0.2 MG Contact Info: Specialty ([place]) [phone] [facility] [phone] [facility] [phone] Raheem [phone] Bedside Delivery ([facility]) [phone] [facility] RX OUTREACH ADVANCED: Call Information: Date and Time of Contact: 01/25/2024 10:23 AM Method of Contact: By Phone Contact Type: Prescriptions Contactor: [facility] Contactee: Patient Contact Outcome: Left message (prograf myco) Contact Info: Specialty ([place]) [phone] [facility] [phone] [facility] [phone] Raheem [phone] Bedside Delivery ([facility]) [phone] [facility] RX OUTREACH ADVANCED: Call Information: Date and Time of Contact: 01/27/2024 10:19 AM Method of Contact: By Phone Contact Type: Prescriptions Contactor: [facility] Contactee: Patient Contact Outcome: Left message (myco prograf) Contact Info: Specialty ([place]) [phone] [facility] [phone] [facility] [phone] Raheem [phone] Bedside Delivery ([facility]) [phone] [facility] RX OUTREACH ADVANCED: Call Information: Date and Time of Contact: 02/01/2024 3:22 PM Contact Type: Prescriptions Contactor: [facility] Contactee: Patient Contact Outcome: Left message Shipping/Pickup: Medication Name: Mycophenolate 360mg and Prograf 0.2mg Pack Contact Info: Specialty ([place]) [phone] [facility] [phone] [facility] [phone] Raheem [phone] Bedside Delivery ([facility]) [phone] documented in this encounter [facility] 01-06-2024 History of Present illness Narrative [...] The neurologist wanted to send him to [facility] but it is out of network [...] I have advised pt to contact insurance [employer] to see if they can provide a [...] aorta (I70.0) documented in this encounter [facility] 10-06-2023 History of Present illness [...] ; Prograf 0.2 MG Contact Info: Specialty ([place]) [phone] Jakob [phone] [facility] [phone] Raheem [phone] Bedside Delivery ([facility]) [phone] [facility] RX OUTREACH ADVANCED: Call Information: Date and Time of Contact: 10/23/2023 2:00 PM Method of Contact: By Phone Contact Type: Prescriptions Contactor: [facility] Contactee: Patient Contact Outcome: Left message and Call back later Shipping/Pickup: Medication Name: Mycophenolate 360mg and Prograf 0.2mg Contact Info: Specialty ([place]) [phone] [facility] [phone] [facility] [phone] Raheem [phone] Bedside Delivery ([facility]) [phone] documented in this encounter [facility] 09-11-2023 Miscellaneous Notes Pt discharged home [...] oxygen during the night. pt will flower picker his oxygen from [facility], 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 This [...] Patient seen ambulating in the velazquez with TELEPHONE LINES REPAIRER. Patient was mildly short of breath on [...] & HR 114. Messaged Mainor Loomis, via [employer] secure chat, Temp 100.8. His tylenol [...] short period of time. 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 Episode [...] Critical Care Medicine Message Mainor Loomis, via [employer] secure chat, Good evening, just an [...] short period of time. 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 This [...] [address] Loera here also (marketing executive) Dr. Diaz aware of pt's increased [...] PGY-2 Mr. Styles was admitted to [address] [place] [address]. On admission to [facility], from home a [...] when available. documented in this encounter [facility] 09-11-2023 History of Present illness Narrative Provided follow-up emotional and spiritual support. Patient shared about rosemary of discharge and looking forward to seeing family Call Center Agent provided: - Supportive presence - Active listening - Validation of feelings/emotions Patient encouraged to request a surfacer as needed. Chaplains are available in-house 24 hours a day and 7 days a week. For urgent matters in [facility], please page [phone]. If the request is not urgent, please enter a consult. Consults are responded to within 24 hours. Senior Staff Call Center Agent Angie Singh Mdiv, [facility] Kirk [phone] [email or web address] 22/06 On-call Kirk: 3-2001 22/06 Pager ,BS, and Brock Lewis Raheem Pager [phone] 09/11/23 1430 Clinical Encounter Type Visited With Patient Visit Type Follow-up Pastoral Time Spent 15 min Referral Other (See Comment) (rounding) Spiritual Assessment Spiritual Observation Spirituality helpful Emotional Observation Coping well Hope Observation Specific hope focus Support Observation By Family Interventions Provided Active listening;Supportive presence Facilitated Verbalization of feelings Explored Expectations Heavy Duty Mechanic Education Heavy Duty Mechanic Service Available Yes Educated Patient Plan of Care Continue Visiting PRN Images from the original note were not included. [facility] ([facility]) Note: Non-Verbal Med Rec [facility] received the following discharge prescription(s): Total cost is $0. I have reviewed the Discharge Rx Reconciliation Report. The discharge prescription(s) will be delivered to the patient on 09/11/2023. Dimitrios Gurrola [facility],PharmD Specialty ([place]) [phone] Jakob [phone] Jakob Bedside Delivery [phone] [facility] [phone] [facility] Bedside Delivery [phone] Raheem [phone] Raheem Bedside Delivery [phone] [place] [phone] Jolene [phone] Internal Medicine Daily Progress Note Patient: George Styles, 1970, [id number] Physician: Evan Kelly MD, PGY-1, TM1 service Subjective/Interval History: Patient continues to require oxygen overnight for desaturations. With insurance limitations, only accepting agency to provide home oxygen backed out. After calling them to discuss, Lynn stated she would be willing to have patient drive to their facility to flower picker supplies, however they close at 5pm. 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 His [place] kidney disease was noted to be presumed [...] in 8-12 weeks Acute Hypoxic Respiratory Insufficiency [facility] Patient requiring 3-4L NC during admission. [...] losartan 50mg BID CAD: non-obstructive CAD on [facility] 2018. - continue home aspirin 81mg [...] 5.05 (H) 11/19/2018 Kevin Prince MD, SERA Weave Room Supervisor of Clinical Medicine [facility] Images from the original note were not included. Final Discharge Planning and Transportation Final Discharge Planning Discharge Disposition: Home Services at Discharge: Outpatient clinical services (ie: lab draws, transfusions, injectables) (Home Oxygen by [facility]) Selected Continued Care - Admitted Since 08/28/2023 Durable Medical Equipment Coordination complete. Service Provider Selected Services Address Phone Fax Patient Preferred [facility] Durable Medical Equipment [address] [facility] [address] Internal Comment last updated by Lora Lawrence RN 09/10/2023 1334 Correct contact information: [address] [place] [address] [place] [address] laminating press operator- you do not need to call at discharge, I already notified the company. Addendum [phone] [facility] notified this CM they are out of patient's insurance area and will not be able to service this patient at time of discharge. Provider notified. Addendum 4940 Dr Kelly called [facility] spoke to Lynn and she said they are willing to accept patient if the patient would drive to the [place] office and flower picker the supplies. Patient is willing to [...] Lora Colón RN, MSN, CCM, CMCN Clinical Topper Press Operator- [facility] Transplant #[phone] Department of Pharmacy Transplant Note Patient: George [...] dose adjustment Name: Matt Kramer RPh,Frankie Phone: [phone] Date/Time: 09/10/2023 11:33 AM This CM sent referral via [employer] for O2 concentrator to 4 agencies Start date today Timer set for 1330 [employer] Viemed [facility] [place] watAgame Addendum 1332 One accepting company reserved in [employer] [address] [place] [address] [place] [address] Lora Colón RN, MSN, CCM, CMCN Clinical Topper Press Operator- R10 Transplant #[phone] NUTRITION FOLLOW-UP Nutrition Plan of Care: 1. Continue current diet order. 2. No oral supplements warranted at this time. 3. Monitor for significant weight changes. Monitor GI, skin integrity. 4. Monitor and encourage po intakes with goal of average po being 75-100%. 5. radiation protection technician to follow. ___ Met with patient [...] Will continue to monitor. Cecilia Mattson DTR Pager:[phone] Transplant Infectious Disease (Team 3) Progress Note [...] sign off. Please Epic message or page [phone] with questions. Evan White DO Transplant Infectious Diseases Internal Medicine Daily Progress Note Patient: George Styles, 1970, [id number] Physician: Evan Kelly MD, PGY-1, TM1 service [...] s/p combined Liver-kidney transplant on 04/13/20. His agua caliente kidney disease was noted to be presumed [...] losartan 50mg BID CAD: non-obstructive CAD on [facility] 2018. - continue home aspirin 81mg [...] to follow. Please Epic message or page [phone] with questions. 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 - continue home aspirin 81mg daily, holding atorvastatin 20mg daily Gout: continue home allopurinol 200mg daily BPH: continue home flomax 0.4mg daily DVT PPX: SQH Code Status: Full Code Disposition: Pending clinical course. Anticipate eventual discharge home. Discussed with team and attending, Kevin Prince MD, on rounds. 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 - continue home aspirin 81mg [...] 5.05 (H) 11/19/2018 Kevin Prince MD, SERA Weave Room Supervisor of Clinical Medicine [facility] Transplant Infectious Disease (Team [...] to follow. Please Epic message or page [phone] with questions. Ann Marie Haskins MD PGY-4, [...] he continues to improve. Please message via [employer] secure chat or page with any questions or concerns. Evan White DO Weave Room Supervisor Division of Infectious Disease Transplant Infectious [...] to follow. Please Epic message or page [phone] with questions. Evan White DO Transplant Infectious Diseases Images from the original note were not included. Pulmonary/Critical Care Medicine Daily Progress Note Reason for Consultation: bronch for infectious workup Requesting Physician: Dr. Prince CURRENT HOSPITALIZATION: Admit Date: 08/28/2023 [facility] Hospital LOS: 9 days Impression 1. [...] and interpreted reviewed the radiographic data in [employer]. 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 - continue home aspirin 81mg [...] 5.05 (H) 11/19/2018 Kevin Prince MD, FASN Weave Room Supervisor of Clinical Medicine [facility] Images from the original note were not included. Pulmonary/Critical Care Medicine Daily Progress Note Reason for Consultation: bronch for infectious workup Requesting Physician: Dr. Prince CURRENT HOSPITALIZATION: Admit Date: 08/28/2023 [facility] Hospital LOS: 8 days Impression 1. [...] and interpreted reviewed the radiographic data in [facility] Acute Occupational Therapy Evaluation Prior to [...] Assessment: Transfer Assessment: Sit to Stand Transfer [place] Level: Sit->Stand: independent Skilled Intervention/Details: Sit->Stand: x1 from EOB, x1 from toilet Stand to Sit Transfer [place] Level: Stand->Sit: independent Skilled Intervention/Details: Stand->Sit: x1 to toilet, x1 to EOB Functional Mobility: Functional Mobility [place] Level: Functional Mobility/Gait: independent Ambulation Distance (Feet): 20 Skilled Intervention/Details - Functional Mobility/Gait: pt performed functional mobility to/from RR w/ no overt LOB Outcome Score(s): CURRENT [facility] Daily Activity Inpatient Short Form Putting on/Taking Off Lower Body Clothin - A Little Assistance Bathin - A Little Assistance Toiletin - A Little Assistance Putting on/Taking Off Upper Body Clothin - No Assistance Groomin - No Assistance Eatin - No Assistance CURRENT [facility] Activity Raw Score: 21 CURRENT [facility] Activity Functional Limitation/Modifier: 32.79% Currently Impaired [...] Intact Mobility Assessment: Supine to Sit Mobility [place] Level: Supine->Sit: modified independence Bed Features/Set-up: Supine->Sit: Head of bed elevated Sit to Supine Mobility [place] Level: Sit->Supine: not tested Balance: Sitting Balance [...] environment. Transfer Assessment: Sit to Stand Transfer [place] Level: Sit->Stand: independent Skilled Intervention/Details: Sit->Stand: From EOB x 2 without difficulty. Stand to Sit Transfer [place] Level: Stand->Sit: independent Assistive Device: Stand->Sit: armed chair Skilled Rationale: Verbal cues, Positioning Gait/Functional Mobility: Gait Assessment [place] Level: Gait: stand-by assist Assistive Device: Gait: rollator Ambulation Distance (Feet): 400 Gait Deviations Identified: decreased grace, decreased gait speed Gait Skilled Rationale: verbal, upright posture, increase step length, increase foot clearance Skilled Intervention/Details - Gait: Reasonable foot clearnce without loss of balance but endorsing dyspnea as 6-7/10. Stairs: Stairs Assessment [place] Level: Stair Negotiation: not tested Outcome Score(s): CURRENT [facility] Basic Mobility Inpatient Short Form Turning over in bed: 4 - No Assistance Sitting/standing from chair: 4 - No Assistance Moving from lying on back to sittin - No Assistance Moving to and from bed to chair: 3 - A Little Assistance Walk in hospital room: 3 - A Little Assistance Climbing 3-5 steps with a railin - A Little Assistance CURRENT [facility] Mobility Raw Score: 21 CURRENT [facility] Mobility Functional Limitation/Modifier: 28.97% Currently Impaired [...] Daily Progress Note Patient: George Styles, 1970, [id number] Physician: Evan Kelly MD, PGY-1, TM1 service [...] 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 His agua caliente kidney disease was noted to be presumed [...] losartan 50mg BID CAD: non-obstructive CAD on [facility] 2019. - continue home aspirin 81mg [...] 5.05 (H) 11/19/2018 Kevin Prince MD, SERA Weave Room Supervisor of Clinical Medicine [facility] Comprehensive Transplant Center Transplant Infectious [...] to follow. Please Epic message or page [phone] with questions. Evan White, DO Transplant Infectious Diseases Images from the original note were not included. Internal Medicine Daily Progress Note Patient: George Styles, 1970, [id number] Physician: Evan Kelly MD, PGY-1, TM1 service [...] RRR, normal S1, S2, no M/R/G. No JENSNE. 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 His agua caliente kidney disease was noted to be presumed [...] losartan 50mg BID CAD: non-obstructive CAD on [facility] 2018. - continue home aspirin 81mg [...] P 450 system Kevin Prince MD, SERA Weave Room Supervisor of Clinical Medicine [facility] Comprehensive Transplant Center ERT Note: [...] MD, PhD Internal Medicine and Pediatrics PGY-3 [facility] Brief plan of care update: Called [...] MD, PhD Internal Medicine and Pediatrics PGY-3 [facility] Transplant Infectious Disease (Team 3) Progress [...] to follow. Please Epic message or page [phone] with questions. 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 His agua caliente kidney disease was noted to be presumed [...] 2/2 renal function CAD: non-obstructive CAD on [facility] 2018. 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 His agua [place] kidney disease was noted to be presumed [...] 2/2 renal function CAD: non-obstructive CAD on [facility] 2018. - continue home aspirin 81mg [...] 5.05 (H) 11/19/2018 Kevin Prince MD, SERA Weave Room Supervisor of Clinical Medicine [facility] Progression of Care Note [...] Lora Colón RN, MSN, CCM, CMCN Clinical Topper Press Operator- R10 Transplant #[phone] Made introductory visit with patient. Provided emotional and spiritual support. Patient shared about: - Source of Rosemary: Camping/Fishing/Family - Spirituality/Episcopalian Affiliation: raised Adventist - Family Support/history - Experience with illness/hospital course - Hopes for healing/future Call Center Agent provided: - Supportive presence - Active listening - Validation of feelings/emotions - Pledged prayer Patient encouraged to request a surfacer as needed. Chaplains are available in-house 24 hours a day and 7 days a week. For urgent matters in [facility], please page [phone]. If the request is not urgent, please enter a consult. Consults are responded to within 24 hours. Senior Staff Call Center Agent Angie Singh Mdiv, [facility] Kirk [phone] [email or web address] 22/06 On-call Kirk: [phone] 22/06 Pager ,[facility], and Brock Hernandez Pager [phone] 09/02/23 1113 Clinical Encounter Type Visited With Patient Visit Type Introduction Pastoral Time Spent 15 min Referral Other (See Comment) (rounding) Spiritual Assessment Spiritual Observation Spirituality helpful Emotional Observation Coping well Hope Observation Specific hope focus Support Observation By Family Interventions Provided Active listening;Supportive presence Facilitated Verbalization of feelings Explored Expectations Heavy Duty Mechanic Education Heavy Duty Mechanic Service Available Yes Educated Patient Outcomes Patient Outcomes Reduced distress Plan of Care Continue Visiting PRN NUTRITION RISK SCREENING NOTE Nutrition Plan of Care: 1. Continue current diet order. 2. No oral supplements warranted at this time. 3. Monitor for significant weight changes. Monitor GI and skin integrity. 4. Monitor and encourage po intakes with goal of average po being 100%. 5. radiation protection technician to follow. George Styles is a 53 y.o. 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 His agua caliente kidney disease was noted to be presumed hepatorenal syndrome. His post-transplant course was noteworthy for nephrostomy tube (05/17/2022-09/10/2022) due to concern for ureteral stone. He presents as a direct admission for fever, cough, for infectious workup. Pt unavailable and information obtained via chart review Electronic Installer Screening Pt's appetite is good. Pt with [...] with meds Food Allergies reviewed:Shellfish Cultural or Episcopalian Restrictions/Preferences: None GI: Last Bowel Movement: 09/01/23 [...] time. Will continue to monitor. 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 His agua caliente kidney disease was noted to be presumed [...] / renal function CAD: non-obstructive CAD on [facility] 2018. - continue home aspirin 81mg [...] as outlined above. Kevin Prince MD Pager [phone] Summary: Pharmacy Med Rec Department of Pharmacy [...] Provider: Zuly Bruno NP Pharmacy: [facility] Other Comments: Patient reported his Last Home Dose of mycophenolate & tacrolimus was on 08/28/23 at 0900. Patient reported he was taking Bactrim and benzonatate for fevers and a cough he was having. Please feel free to contact me with any further questions. Name: Heidy Chatman Phone #: [phone] Date/Time: 09/01/2023 2:01 PM Time Spent: 15 minutes Associated attestation - Matt Kramer RPh,PharmAbdoul - 09/01/2023 2:28 PM EDT Department of Pharmacy Admission Medication Reconciliation Note Patient: George Styles Room/Bed: 1062/A I have reviewed the home medication list with the Barrel Charrer Helper. All changes to the home medication list have been updated in [facility]. Updated FELT WASHING MACHINE TENDER Med List: Prior to Admission Medications [...] questions. Name: Matt Kramer RPh,PharmD Phone #: [phone] Date/Time: 09/01/2023 2:28 PM Transplant Infectious Disease [...] crypto antigen, EBV PCR -follow pending histo, [id number] labs These recommendations were discussed with the primary team. Transplant ID (Team 3) will continue to follow. Please Epic message or page [phone] with questions. 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 His agua [place] kidney disease was noted to be presumed [...] 2/2 renal function CAD: non-obstructive CAD on [facility] 2018. - continue home aspirin 81mg [...] 5.05 (H) 11/19/2018 Kevin Prince MD, SERA Weave Room Supervisor of Clinical Medicine [facility] Discharge Planning Patient Assessment [...] Yes Name and Contact information: Gian Styles ([phone]) Reviewed and Updated in Demographics? : Yes [...] patient on Anticoagulation? : No [id number] [place] [address] - [address] [facility] [address] [facility] [address] Sales Representative Printing Does the patient or healthcare representative express financial concerns? : No Employed?: Disabled Coping/Stress Concerns about patient s coping and stress?: No Concerns about patient s caregiver s coping and stress?: No Values and Beliefs Cultural or taoism practices that may impact discharge planning and/or [...] Plan 1. Identified self and role as Topper Press Operator. 2. Confirmed and updated demographics and treatment team. 3. Topper Press Operator will continue to follow with medical team/pt for any other additional discharge needs. Kasandra DON RN [facility] [phone] *Please note I am float CM and work Thursday and Thursday every other week. Please call [phone] for assist in my absence. 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 His [place] kidney disease was noted to be presumed [...] 2/2 renal function CAD: non-obstructive CAD on [facility] 2018. 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 His agua [place] kidney disease was noted to be presumed [...] losartan 50mg BID CAD: non-obstructive CAD on [facility] 2018. - continue home aspirin 81mg daily, atorvastatin 20mg daily Gout: continue home allopurinol 200mg daily BPH: continue home flomax 0.4mg daily DVT PPX: SQH Code Status: Full Code Disposition: Pending clinical course. Anticipate eventual discharge home. Discussed with team and attending, Kevin Prince MD, on rounds. Signed, Laurel Serrano MD, PhD documented in this encounter [facility] 09-10-2023 Hospital Discharge instructions Laurel [...] sleep doctor. You will need to flower picker the oxygen concentrator when you leave [...] on healthy foods. documented in this encounter [facility] 09-01-2023 Consult note Associated Order (s): IP CONSULT TO PULMONOLOGY Pulmonary Medicine Inpatient Consultation Reason for Consultation: bronch for infectious workup Requesting Physician: Dr. Prince Pulmonary Attending Physician: Dr. Diaz CURRENT HOSPITALIZATION: Admit Date: 08/28/2023 [facility] Hospital LOS: 4 days Impression/Recommendations: George [...] Recommendations: - Plan to bronch tomorrow morning. NPO@[place], order placed - would repeat HIV, last [...] short period of time. 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 Other histories as documented in [...] contacts. He traveled to [place] [facility]. REVIEW OF SYSTEMS A [...] GUIDANCE 05/17/2022 Surgeon: Enzo Heart DO; Location: [facility] INTERVENTIONAL RADIOLOGY (VIR) LIVER TRANSPLANT, ORTHOTOPIC N/A 04/12/2020 Laterality: N/A; Surgeon: LU Palma; Location: [facility] SAME DAY SURGERY MAIN OR KIDNEY TRANSPLANT W/O COQUILLE NEPHRECTOMY N/A 04/12/2020 Laterality: N/A; Surgeon: LU Palma; Location: [facility] SAME DAY SURGERY MAIN [...] Alamo MD I can be reached via [employer] secure message (preferred) or Pager #[phone] documented in this encounter [facility] 08-28-2023 History and physical note Images from the original note were not included. Internal Medicine Admission History & Physical Patient: George Styles, 1970, [id number] Physician: Aric Turner MD, PGY1, Pager #[phone], service Date of face to face patient [...] So he went to see the transplant tea bag machine tender. He was found elevated Cr and asked [...] Appetite is ok now. Urine is about 4032-0594 ml every day. 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 His agua [place] kidney disease was noted to be presumed [...] Urinary histoplasmosis - PJP, candid PCR - Motor And Controls Tester transplant ID Acute Kidney Injury with Kidney [...] losartan 50mg BID CAD: non-obstructive CAD on [facility] 2018. - continue aspirin 81mg daily, [...] Pierson, Luisa Steven, Renee Rivera, Daisha Max Grill Attendant: José Miguel Garnica All Txt: 04/13/2020 [...] results found for: CYCLOSPORIN , CYCLOSPORIN2 , [id number] , CYCLORAND No results found for: SIROLIMUS [...] Rest as above. Kevin Prince MD Pager [phone] documented in this encounter [facility] 08-28-2023 History of Present illness Narrative Images from the original note were not included. 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 Grill Attendant: Anayeli Burt Date of Liver Transplant: 04/13/2020 (Kidney), 04/13/2020 (Liver) 3 years 4 months post Liver/Kidney Transplant Primary Disease: Hypertensive Nephrosclerosis Transplant Paste Up Copy Camera Operator: Erma Roe/ Daisha Max Primary Care [...] and faMOTIdine === None Specified Preferred Lab: [facility] Change in lab frequency / new [...] every 12 hours. ADDITIONAL INFORMATION: None Specified, [id number] [place] [address] - [address] [facility] [facility] [address] [facility] [address] [place] [address] [facility][id number] [place] [address] [address] [facility] [address] [facility] [address] [facility] [address], [place] [address] [facility] [address] ROS and SCREEN: Chest Pain: negative Cough: [...] PHYSICIAN: I saw George Styles at the [facility] on 08/28/2023. Patient is a 53 y.o. 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 His [place] kidney disease was noted to be presumed [...] GUIDANCE 05/17/2022 Surgeon: Enzo Heart DO; Location: [facility] INTERVENTIONAL RADIOLOGY (VIR) LIVER TRANSPLANT, ORTHOTOPIC N/A 04/12/2020 Laterality: N/A; Surgeon: LU Palma; Location: [facility] SAME DAY SURGERY MAIN OR KIDNEY TRANSPLANT W/O COQUILLE NEPHRECTOMY N/A 04/12/2020 Laterality: N/A; Surgeon: LU Palma; Location: [facility] SAME DAY SURGERY MAIN [...] you have any questions. Steve Munoz MD member of technical staff Division of Nephrology [facility] documented in this encounter [facility] 08-28-2023 Instructions Mainor Busby RN - 08/28/2023 2:15 PM EDT - Admission for fevers, cough, and night sweats documented in this encounter [facility] 08-19-2023 History of Present illness Narrative [facility]: Call Information: Date and Time of Contact: 08/19/2023 2:52 PM Method of Contact: By Phone Contact Type: Prescriptions Contactor: [facility] OP Contactee: Patient Shipping/Pickup: Medicare B Refill?: No Medication Name: Tacro 0.5mg Delivery Method: Air Delivery Location: Home Signature Required: No Mailing/Pickup Date: 08/25/2023 Shipping Address: [address] [place] [address] Contact Info: Specialty ([place]) [phone] [facility] [phone] [facility] [phone] Raheem [phone] Bedside Delivery ([facility]) [phone] documented in this encounter [facility] 06-12-2023 History of Present illness Narrative Images from the original note were not included. George Styles is a 53 y.o. 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 No longer follows with a local tea bag machine tender. History of Present Illness: Since George was [...] and lab results. Rebeca Gutierrez MSN, RN, SUPERINTENDENT [employer]ARD [employer]-BC, CCTN Certified Nurse Practitioner Comprehensive Transplant Center [facility] [address] [facility] [id number] documented in this encounter [facility] 06-12-2023 Instructions JEANNA Hess - 06/12/2023 3:00 PM EDT No change in immunosuppression. documented in this encounter [facility] 06-10-2023 History of Present illness Narrative [facility] OUTREACH ADVANCED: Call Information: Method of Contact: By Phone Contact Type: Prescriptions Contactor: [facility] Contactee: Patient Contact Outcome: Left message Shipping/Pickup: Medication Name: Mycophenolate sod 180 mg Contact Info: Specialty ([place]) [phone] [facility] [phone] [facility] [phone] Raheem [phone] Bedside Delivery ([facility]) [phone] [facility] OUTREACH ADVANCED: Call Information: Date and Time of Contact: 06/12/2023 9:43 AM Method of Contact: By Phone Contact Type: Prescriptions Contactor: [facility] Contactee: Patient Contact Outcome: Left message and Follow-up Shipping/Pickup: Medicare B Refill?: No Medication Name: Myco 180 Contact Info: Specialty ([place]) [phone] [facility] [phone] [facility] [phone] Raheem [phone] Bedside Delivery ([facility]) [phone] [facility] OUTREACH ADVANCED: Call Information: Date and Time of Contact: 06/12/2023 10:08 AM Method of Contact: By Phone Contact Type: Prescriptions Contactor: [facility] Contactee: Patient Shipping/Pickup: Medicare B Refill?: No Medication Name: Mycophenolate 180mg DR Delivery Method: Air Delivery Location: Home Signature Required: No Mailing/Pickup Date: 06/17/2023 Shipping Address: [address] [place] [address] Contact Info: Specialty ([place]) [phone] [facility] [phone] [facility] [phone] Raheem [phone] Bedside Delivery ([facility]) [phone] documented in this encounter [facility] 03-12-2023 History of Present illness Narrative [facility] OUTREACH ADVANCED: Call Information: Date and Time of Contact: 03/12/2023 10:34 AM Method of Contact: By Phone Contact Type: Prescriptions Contactor: [facility] Contactee: Patient Shipping/Pickup: Medicare B Refill?: No Medication Name: Mycophenoloate sod 360 mg prednisone 5mg Delivery Method: Air Delivery Location: Home Signature Required: No Mailing/Pickup Date: 03/16/2023 Shipping Address: [address] [address] Contact Info: Specialty ([place]) [phone] Jakob [phone] [facility] [phone] Raheem [phone] Bedside Delivery ([facility]) [phone] [facility] OUTREACH ADVANCED: Call Information: [...] No Mailing/Pickup Date: 03/19/2023 Shipping Address: [address] Contact Info: Specialty ([place]) [phone] [facility] [phone] [facility] [phone] Raheem [phone] Bedside Delivery ([facility]) [phone] documented in this encounter [facility] 03-10-2023 History of Present illness Narrative [facility] OUTREACH ADVANCED: Call Information: Date and Time of Contact: 03/10/2023 12:00 PM Method of Contact: By Phone Contact Type: Prescriptions Contactor: [facility] Contactee: Patient Contact Outcome: Left message and Call back later Shipping/Pickup: Medication Name: Mycophenolate ; Tacrolimus Contact Info: Specialty ([place]) [phone] [facility] [phone] [facility] [phone] Raheem [phone] Bedside Delivery ([facility]) [phone] documented in this encounter [facility] 03-10-2023 History of Present illness Narrative [facility] OUTREACH ADVANCED: Call Information: Date and Time of Contact: 03/10/2023 12:00 PM Method of Contact: By Phone Contact Type: Prescriptions Contactor: [facility] Contactee: Patient Contact Outcome: Left message and Call back later Shipping/Pickup: Medication Name: Mycophenolate ; Tacrolimus Contact Info: Specialty ([place]) [phone] [facility] [phone] [facility] [phone] Raheem [phone] Bedside Delivery ([facility]) [phone] [facility] OUTREACH ADVANCED: Call Information: Date and Time of Contact: 03/12/2023 10:32 AM Method of Contact: By Phone Contact Type: Prescriptions Contactor: [facility] Contactee: Patient Contact Outcome: Left message Shipping/Pickup: Medication Name: Mycophenolate sodium (MYFORTIC) 180 MG Tab tacrolimus 0.5 mg Contact Info: Specialty ([place]) [phone] [facility] [phone] [facility] [phone] Raheem [phone] Bedside Delivery ([facility]) [phone] documented in this encounter [facility] 01-16-2023 History of Present illness Narrative [...] GUIDANCE 05/17/2022 Surgeon: Enzo Heart DO; Location: [facility] INTERVENTIONAL RADIOLOGY (VIR) LIVER TRANSPLANT, ORTHOTOPIC N/A 04/12/2020 Laterality: N/A; Surgeon: LU Palma; Location: [facility] SAME DAY SURGERY MAIN OR KIDNEY TRANSPLANT W/O COQUILLE NEPHRECTOMY N/A 04/12/2020 Laterality: N/A; Surgeon: LU Palma; Location: [facility] SAME DAY SURGERY MAIN [...] 0.3 12/29/2022 Explant Pathology Pathologic Diagnosis A. [place] liver, orthotopic liver transplant resection (1458 gram): [...] A/P with IV contrast (06/27/2022): 1. Both agua caliente kidneys are atrophic with improvement in right-sided [...] frequent nighttime urination, etc). Daisha Max DO Weave Room Supervisor Gastroenterology, Hepatology and Nutrition [facility] Pager: [phone] Images from the original note were not included. 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 Grill Attendant: Anayeli Burt Date of Liver Transplant: 04/13/2020 (Kidney), 04/13/2020 (Liver) 2 years, 8 months post Liver/Kidney Transplant Primary Disease: Hypertensive Nephrosclerosis Transplant Paste Up Copy Camera Operator: Steve Munoz Primary Care physician: Zuly [...] levels: No results found for: CYCLOSPORIN, CYCLOSPORIN2, KORLYYEPN3JO, CYCLORAND No components found for: CYCLOSPORINE, 2HR [...] hours. ADDITIONAL INFORMATION: None Specified [id number] [place] [address] - [address] [facility] [address] [facility] [address] [facility] [address] [place] [address] [id number] [place] [address] [address] [facility] [address] [facility] [address] [facility] Jakob [address], [address] [place] [address] ROS and SCREEN: Chest Pain: negative Cough: [...] ADDRESS WITH PHYSICIAN: documented in this encounter [facility] 01-16-2023 Instructions José Miguel Garnica RN - 01/16/2023 9:40 AM EST - Labs Every 2 months - Discuss night time urination with your PCP - Schedule Colonoscopy through PCP - Follow up in 1 year documented in this encounter [facility] 09-10-2022 History of Present illness Narrative UROLOGY CLINIC NOTE Reason for Appointment: BPH with LUTS HPI: Patient is a 52 yo male with a DDRT to the [facility] in 2019. Nephrostomy tube placed 05/17/22 due [...] and no hydronephrosis. Some reflux up the [place] right ureter but good drainage of both transplant and [place] ureter to the bladder. Nephrostomy tube was [...] transplant, orthotopic (N/A, 04/12/2020); kidney transplant w/o [place] nephrectomy (N/A, 04/12/2020); and placement nephrostomy catheter [...] Negative for , diarrhea, constipation Genitourinary: See ATKA Neurological: Negative for headaches. Lymph/Heme: Negative for [...] x 4, Normal strength. No edema. Skin: [place], warm, and dry. There are no rashes [...] and no hydronephrosis. Some reflux up the [place] right ureter but good drainage of both transplant and [place] ureter to the bladder. Nephrostomy tube was [...] MD 09/10/22 documented in this encounter [facility] 07-07-2022 History of Present illness [...] assisted off the table and escorted to community development specialist where they made a follow up. [...] to have transplant ureter with anastomosis to [place] right ureter. Nephrostogram without filling defects and no hydronephrosis. Some reflux up the [place] right ureter but good drainage of both transplant and [place] ureter to the bladder. Nephrostomy tube was removed without issue. Patient does have some sensation of incomplete bladder emptying and occasional sensation in his right flank. PVR today was 33cc. Will re-evaluate urinary symptoms at next appointment. --continue Flomax --RTC in one month flow flow/PVR/IPSS Patient to call with any additional questions or concerns. Ryan Yepez MD 07/07/22 documented in this encounter [facility] 06-27-2022 History of Present illness [...] transplant, orthotopic (N/A, 04/12/2020); kidney transplant w/o [place] nephrectomy (N/A, 04/12/2020); and placement nephrostomy catheter [...] Negative for , diarrhea, constipation Genitourinary: See ATKA Neurological: Negative for headaches. Lymph/Heme: Negative for [...] x 4, Normal strength. No edema. Skin: [place], warm, and dry. There are no rashes [...] yo male with a DDRT to the [facility] in 2019. Nephrostomy tube placed 05/17 due [...] bag if needed. documented in this encounter [facility] 06-27-2022 History and physical note Patient was evaluated in clinic as a nurse visit. Please refer to Rena Brewster's note. [facility] Work Phone: 06-27-2022 History and physical note Patient was evaluated in clinic as a nurse visit. Please refer to Rena Brewster's note. documented in this encounter [facility] 06-27-2022 History of Present illness Narrative TEACHING REGARDING TX NEPH COMPLETED-NEPH TUBE SITE DRY AND INTACT-CLEAR YELLOW URINE IN THE BAG-INSTRUCTED ABOUT FLUSHING, BAG CHANGING ETC. NUMEROUS QUESTIONS ASKED AND ANSWERED-VERBALIZED UNDERSTANDING documented in this encounter [facility] 06-18-2022 Note EXAMINATION: CT ABD/ [...] mass or enlargement. KIDNEYS: Marked atrophy of agua caliente kidneys. Transplant right pelvic kidney with percutaneous [...] by: MÓNICA JIMENEZ Date: 2022-06-18 13:53 [facility] 06-12-2022 Instructions Anayeli Christianson RN - 06/12/2022 3:21 PM EDT Do not take apart/disrupt nephrostomy tube system. Call Interventional Radiology and/or on-call transplant nurse [phone] for instruction if need to flush (clot or decreased flow). Take cipro 500mg, one tablet, twice per day for 14 days documented in this encounter [facility] 06-12-2022 History of Present illness Narrative Images from the original note were not included. 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 Grill Attendant: Anayeli Burt Date of Liver Transplant: 04/13/2020 (Kidney), 04/13/2020 (Liver) 2 year, 1 months post Liver/Kidney Transplant Primary Disease: Hypertensive Nephrosclerosis Transplant Paste Up Copy Camera Operator: Steve Munoz Primary Care physician: Zuly [...] or medical transport for appointment: no Did credit front office developer confirm current address and insurance information [...] LAB AND PHARMACY: None Specified [facility] [place] [address] - [address] [facility] [address] [facility] [address] [facility] [place] [facility] [address] [place] [address] [id number] [place] [address] [address] [facility] [address] [facility] [address] [facility] [address], [address] [facility] [address] ROS and SCREEN: Chest Pain: negative Cough: negative SOB: negative Abd Pain: negative Nausea: positive Vomiting: negative Diarrhea: negative Constipation: negative Dysuria: positive Edema: negative Tremors: negative Headaches: negative Wound issues: negative Pt has neph tube w clear yellow urine. States he had a small clot that he dislodged QUESTIONS OR CONCERNS TO ADDRESS WITH PHYSICIAN: I saw George Styles at the [facility] on 06/12/2022. Patient is a 52 y.o. 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 His [place] kidney disease was noted to be presumed [...] GUIDANCE 05/17/2022 Surgeon: Enzo Heart DO; Location: [facility] INTERVENTIONAL RADIOLOGY (VIR) LIVER TRANSPLANT, ORTHOTOPIC N/A 04/12/2020 Laterality: N/A; Surgeon: LU Palma; Location: [facility] SAME DAY SURGERY MAIN OR KIDNEY TRANSPLANT W/O COQUILLE NEPHRECTOMY N/A 04/12/2020 Laterality: N/A; Surgeon: LU Palma; Location: [facility] SAME DAY SURGERY MAIN [...] you have any questions. Steve Munoz MD member of technical staff Division of Nephrology [facility] documented in this encounter [facility] 06-04-2022 Instructions TATI GROVE - 06/04/2022 11:04 AM EDT Thank you for joining us for your neph tube follow up. We recommend routine exchange every 8-10 weeks. Please reach out at [phone] when it is time to set your next routine exchange. Thank you IR clinic documented in this encounter [facility] 06-04-2022 History of Present illness Narrative [...] exchange. Verbalized understanding. documented in this encounter [facility] 05-20-2022 Note Formatting of this n [...] time of his discharge. Leon Cook RN [facility] 05-20-2022 Miscellaneous Notes Patient discharged. AVS [...] provide teaching before his discharge Leon GALLARDO #[id number] Leon Cook RN Afternoon assessment completed at [...] Interdisciplinary Rounds/Family Conf Outcome: Ongoing Discussed with [facility] re: possible urine culture performed at their facility. However, based on urinalysis completed at that time, which was only notable for hematuria, culture was not performed and sample no longer feasible for culture. Liam Julian MD Internal Medicine/Pediatrics, PGY-3 2003: [employer] message sent to Dr Justyn Wen, regarding [...] with questions. Evan Byrd MD Urology, PGY-2 #[id number] I certify that this patient requires inpatient [...] Kallie Lorenzana RN documented in this encounter [facility] 05-20-2022 Note Formatting of this n [...] discharge/transition of care. Outcome: Adequate for Discharge [facility] 05-20-2022 Note Formatting of this n ote might be different from the original. Anne Dillard MD R10 Rm 1006 Jensen Orellana Please let's have a clear order on how the nephrostomy site dressing need to be changed when the patient goes home so we provide teaching before his discharge Leon RN #[id number] Leon Cook RN [facility] 05-20-2022 History of Present illness Narrative Images from the original note were not included. [facility] Note: [facility] received the following discharge prescription(s): Medication reconciliation was completed with comparison to discharge reconciliation report. The prescription(s) will be delivered to the patient's bedside on 05/20/22. Total cost is $0. Yanira Her RPh,PharmD Specialty ([place]) [phone] [facility] [phone] [facility] [phone] [facility] [phone] [place] [phone] Bedside Delivery ([facility]) [phone] Attending I saw George Styles at the [...] Daily Progress Note Patient: George Styles, 1970, [id number] Physician: Liam Julian MD, PGY-3, Pager #[phone], [email or web address] Subjective/Interval History: No acute events overnight. Passed [...] Saldana MD Division of Hospital Medicine Pager [phone] Attending I saw George Styles at the [...] mg 10 mg Oral Q4H PRN Nishant Gaemz MD 10 mg at 05/18/22337 Or oxyCODONE [...] Daily Progress Note Patient: George Styles, 1970, [id number] Physician: Nishant Gamez MD, PGY2, Pager #[phone], [email or web address] Subjective/Interval History: Nephrostomy tube placed yesterday with [...] to have stablized for this to be healthcare representative. Daya ([place]) Jeff Saldana MD Division of Hospital Medicine Pager [phone] Internal Medicine Daily Progress Note Patient: George Styles, 1970, [id number] Physician: Nishant Gmaez MD, PGY2, Pager #[phone], [email or web address] Subjective/Interval History: Worsening creatinine this morning with [...] Saldana MD Division of Hospital Medicine Pager [phone] Attending I saw George Styles at the [...] of chart and discussion with treatment team, Topper Press Operator has not identified needs at this [...] follow. Introduced self and role of the surfacer to patient. Provided emotional and spiritual support and the patient responded by sharing their experience and discussed the following: - Spirituality/Episcopalian Affiliation: As a kid attended [employer] but not a strong identity now - Family support - pt's brothers live close by Call Center Agent provided: - Supportive presence - Active listening - Validation of feelings/emotions Patient encouraged to request a surfacer as needed. Chaplains are available in-house 24 hours a day and 7 days a week. For urgent matters in [facility], please page [phone]. If the request is not urgent, please enter a consult. Consults are responded to within 24 hours. Angie Singh Mdiv, [facility] [place] [address] Call Center Agent [facility] Call Center Agent [place] [phone] [email or web address] 22/06 [facility] Pager 1200 22/06 Pager ,[facility], and [place] 1500 22/06 Raheem Pager [phone] 05/16/22 6039 Clinical Encounter Type Visited With Patient Visit Type Introduction Pastoral Time Spent 15 min Referral Other (See Comment) (Rounding) Spiritual Assessment Spiritual Observation Spirituality helpful;Identifies as (see comment) (Evangelical) Emotional Observation Coping well Hope Observation Hopeful and accepting Support Observation By Family Interventions Provided Active listening;Supportive presence Facilitated Verbalization of feelings;Sharing of life story;Identifying support system Explored Expectations Heavy Duty Mechanic Education Heavy Duty Mechanic Service Available Yes Educated Patient Outcomes Patient Outcomes Articulated purpose/meaning Plan of Care Continue Visiting PRN Internal Medicine Daily Progress Note Patient: George Styles, 1970, [id number] Physician: Nishant Gamez MD, PGY2, Pager #[phone], [email or web address] Subjective/Interval History: Overall feeling okay this morning. 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 [...] Supervision Transfer Assessment: Sit to Stand Transfer [place] Level: Sit->Stand: independent Skilled Intervention/Details: Sit->Stand: x1 from EOB Stand to Sit Transfer [place] Level: Stand->Sit: supervision Assistive Device: Stand->Sit: armed chair Skilled Rationale: Controlled descent for sitting, Verbal cues Gait/Functional Mobility: Gait Assessment [place] Level: Gait: supervision Assistive Device: Gait: gait belt Gait Distance (feet): 200 Gait Deviations Identified: decreased grace, decreased step length, decreased stride length Gait Skilled Rationale: verbal, upright posture Skilled Intervention/Details - Gait: Pt with steady gait without LOB or complaints of SOB. Stairs: Stairs Assessment [place] Level: Stair Negotiation: stand-by assist Assistive Device: Stair Negotiation: gait belt, left rail (ascending) Number of stairs: 9 Stairs Skilled Rationale: reciprocal pattern Outcome Score(s): CURRENT [facility] Basic Mobility Inpatient Short Form Turning over in bed: 4 - No Assistance Sitting/standing from chair: 4 - No Assistance Moving from lying on back to sittin - No Assistance Moving to and from bed to chair: 4 - No Assistance Walk in hospital room: 3 - A Little Assistance Climbing 3-5 steps with a railin - A Little Assistance CURRENT [facility] Mobility Raw Score: 22 CURRENT AM-PAC Mobility [...] community) 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 IADL History IADLs: independent Primary Language: Czech Home Management Skills: independent Meal Prep Responsibility: [...] Assessment: Transfer Assessment: Sit to Stand Transfer [place] Level: Sit->Stand: independent Skilled Rationale: Cues for increased safety Skilled Intervention/Details: Sit->Stand: x1 EOB Stand to Sit Transfer [place] Level: Stand->Sit: supervision Assistive Device: Stand->Sit: gait belt, armed chair Skilled Rationale: Verbal cues, Controlled descent for sitting, Cues for increased safety Skilled Intervention/Details: Stand->Sit: cues for hand placement and controlled descent Functional Mobility: Functional Mobility [place] Level: Functional Mobility/Gait: stand-by assist Assistive Device: [...] No Assistance Eatin - No Assistance CURRENT [facility] Activity Raw Score: 21 CURRENT [facility] Activity Functional Limitation/Modifier: 32.79% Currently Impaired [...] 04/12/2020 Laterality: N/A; Surgeon: LU Palma; Location: [facility] SAME DAY SURGERY MAIN OR KIDNEY TRANSPLANT W/O COQUILLE NEPHRECTOMY N/A 04/12/2020 Laterality: N/A; Surgeon: LU Palma; Location: [facility] SAME DAY SURGERY MAIN [...] by: Mel Norman OT, OTR/L License #: [id number] pager # [phone] 05/20/2022 Upon discontinuation of Acute Care Occupational Therapy Services or patient discharge from the hospital this note represents the current Occupational Therapy Discharge Summary. documented in this encounter [facility] 05-20-2022 Hospital course Narrative Discharge Summary Name: George Styles Age: 52 y.o. Birthday: 1970 Admit Date: 05/15/2022 3:51 PM Discharge Date: 05/20/22 Discharge Time: 11:52 AM Discharge Unit: Gen [facility] 4 Admission Information Admitting Physician: Daya Saldana [...] during his recent hospital stay at [facility]. As you may know, George [...] Saldana MD Division of Hospital Medicine p: [phone] f: [phone] CONSULTS DURING ADMISSION: IP CONSULT TO SURGERY - UROLOGY IP CONSULT TO NEPHROLOGY - TRANSPLANT (MEDICINE) IP CONSULT TO INTERVENTIONAL RADIOLOGY IP CONSULT TO PHYSICAL THERAPY IP CONSULT TO OCCUPATIONAL THERAPY IP CONSULT TO PHARMACY BEDSIDE DISCHARGE MED DELIVERY IMAGING / PROCEDURES / RESULTS: Should you require further information or copies of results or reports please contact [employer] @ [phone] LABS AT TIME OF DISCHARGE: Lab Results [...] Zulytray Bruno [address] [facility] / [place] [address] [address]ICATIONS: Discharge Orders CT ABDOMEN/PELVIS WITHOUT CONTRAST [...] Follow-up: Zuly Bruno, ROB [address] [facility] [address] Schedule an appointment as soon as possible for a visit Follow-up appointment with your, primary care physician within 7-10 days, after discharge. [address] [facility] [address] Follow up The department of urology will call you with a follow up appointment. LU Ovalle [address] 11[address] [facility] [address] Follow up Please make a follow up appointment with Dr. Munoz's office. Upcoming Appointments (up to five)-Some appointments for Medical Center outpatient clinics or diagnostic testing locations are not displayed below Provider Department Dept Phone 06/04/2022 10:40 AM IR CLINIC [facility] Interventional Radiology Clinic [phone] 06/27/2022 1:30 PM [facility] Department of Radiology Arrive at: Arrive to First Floor Registration Desk [phone] 06/27/2022 2:40 PM Ryan Yepez [facility] [place] Arrive at: Arrive to 2nd Floor, Registration [address] 10/31/2022 1:00 PM Steve Munoz [facility] Transplant [facility] [phone] 01/16/2023 9:40 AM TRANSPLANT HEPATOLOGY 3, [facility] Transplant [facility] [phone] Associated attestation - Daya Saldana MD - [...] MD (Peggy) Division of Hospital Medicine Pager [phone] documented in this encounter [facility] 05-20-2022 Hospital Discharge instructions Giulia [...] be changed by Interventional Radiology. Please call [phone] to schedule this appointment and with any questions or concerns you may have regarding the nephrostomy tube. If you have questions or concerns, please call Interventional Radiology at SOMEONE FROM INTERVENTIONAL RADIOLOGY WILL CALL YOU FOR A FOLLOW UP IN THE CLINIC Giulia Cavazos RN Nurse Coordinator Interventional Radiology Interventional Radiology Outpatient scheduling documented in this encounter [facility] 05-19-2022 Note Formatting of this n [...] Ongoing Goal: Interdisciplinary Rounds/Family Conf Outcome: Ongoing [facility] 05-19-2022 Note Formatting of this n ote might be different from the original. Discussed with [facility] re: possible urine culture performed at their facility. However, based on urinalysis completed at that time, which was only notable for hematuria, culture was not performed and sample no longer feasible for culture. Liam Julian MD Internal Medicine/Pediatrics, PGY-3 [facility] 05-18-2022 Note Formatting of this n ote might be different from the original. 2002: IHIS message sent to Dr Justyn Wen, regarding patient passing a small kidney stone, about the size of pea. notified. Stone left in strainer in pt bathroom. 0: IHIS message sent to Dr Justyn Wen, regarding pt BP 174/77. [facility] 05-18-2022 Note Formatting of this n [...] outcomes by discharge/transition of care. Outcome: Ongoing [facility] 05-18-2022 Note Formatting of this n [...] becomes hyponatremic, NS should instead be used. [facility] Work Phone: 05-18-2022 Note Formatting of this n ote might be different from the original. IHIS chat sent to Dr Tray Quintana, regarding pt BP 190/86. Pt complaining of pain at site of neph tube. PRN pain medication given per order parameters. Pt denies any other symptoms at this time. notified and aware. [facility] 05-17-2022 Note Formatting of this n ote might be different from the original. At 0900, I rounded with Dr. Gamez and Dr. Saldana. At that time I checked Mr. Styles's vital signs. His pulse oximeter was low and he was tachypneic. Verbal order at bedside to put nasal cannula on starting at 2liters oxygen and to provide incentive spirometer. [facility] 05-17-2022 Note Formatting of this n ote might be different from the original. Interventional Radiology procedure completed with IR Attending Dr. Heart / Dr. Le of percutaneous right nephrostomy tube placement transplant kidney 10.2 Fr Griffin acosta Pt tolerated procedure with moderate sedation local numbing agent . Transported to inpatient after phase I recovery. Post procedure orders in place. [facility] 05-16-2022 Note Formatting of this n ote might be different from the original. At 1530, I text parisd Kaitlynn Gomez MD that patient has only had 25ml urine output in matias this afternoon. T [facility] 05-16-2022 Note Formatting of this n [...] with questions. Evan Byrd MD Urology, PGY-2 #[id number] [facility] Work Phone: 05-16-2022 Note Formatting of this n ote might be different from the original. I certify that this patient requires inpatient services at this time. I anticipate the expected length of stay will include at least two midnights. Inpatient services are due to the following medical concerns Obstructive kidney stone. Plans for post hospitalization care will be discharge to home. [facility] 05-16-2022 Consult note Associated Order (s): [...] he was given flomax and sent home. [place] better but noticed more pain and decreased [...] best assessment and recommendations. Maxi Pringle MD [facility] Work Phone: 05-16-2022 Consult note Associated [...] he was given flomax and sent home. [place] better but noticed more pain and decreased [...] states he went to his local ED [place] and he was put on Flomax and he did improve. Pt states last night he was unable to void with severe right sided abd pain. Pt states nausea and no vomiting or fevers. Pt states he went back to [place] ED at 0100 and they placed [...] orthotopic (N/A, 04/12/2020); and kidney transplant w/o [place] nephrectomy (N/A, 04/12/2020). 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 The agua [place] kidneys are progressively atrophic bilaterally compared to [...] of 06/14/2020 are no longer present. The [place] distal right ureter is decompressed beyond this [...] with surgical history for renal graft and [place] right urinary drainage, as a discrete ureteroneocystostomy is not identified, and the graft may be draining via a ureteroureterostomy. Urology consultation recommended. 3. The agua [place] kidneys are bilaterally atrophic, with right renal sinus calcifications consistent with nonobstructing right [place] renal calculi up to 6 mm. Normal [...] PGY-3, Department of Urologic Surgery Pager #: [phone] Associated attestation - Ryan Yepez MD - [...] continue flomax documented in this encounter [facility] 05-16-2022 Note Formatting of this [...] supported Trust Relationship/Rapport: care explained choices provided [facility] 05-16-2022 Note Formatting of this n ote might be different from the original. On admission to 0, a dual RN initial assessment of skin condition was performed by Kallie Lorenzana RN and Sheri Arguelles RN. Skin Assessment: WDL Jose Score: 20 LDA Added:N Kallie Lorenzana RN [facility] 05-15-2022 Emergency department Note Report given to Kallie GALLARDO at [facility] 05-15-2022 Emergency department Note Report given to Kallie GALLARDO at [facility] Bladder scan with Dr Villatoro at [...] sent home with [facility]. He went back to that ED and [...] DAY SURGERY MAIN OR KIDNEY TRANSPLANT W/O COQUILLE NEPHRECTOMY N/A 04/12/2020 Laterality: N/A; Surgeon: LU [...] Schneider MD Resident 05/15/222030 Pt arrives from [facility] with kidney stones. Pt states he had right lower abd pain and right flank pain with blood in his urine since Thursday. Pt states he went to his local ED [place] and he was put on Flomax and he did improve. Pt states last night he was unable to void with severe right sided abd pain. Pt states nausea and no vomiting or fevers. Pt states he went back to [place] ED at 0100 and they placed a matias and CT scan completed and multiple kidney stones noted. [facility] ED as he had liver and kidney transplant in 03/2020. documented in this encounter [facility] 05-15-2022 History and physical note Internal Medicine Admission History & Physical Patient: George Styles, 1970, [id number] Physician: Evan Bennett MD, PGY1, Pager #[phone], GM 4 service Date of face to [...] DAY SURGERY MAIN OR KIDNEY TRANSPLANT W/O COQUILLE NEPHRECTOMY N/A 04/12/2020 Laterality: N/A; Surgeon: LU [...] erythema: Skin: No jaundice or rash Neuro: tablet repair 3-7, 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 Strength grossly [...] dilation of the calyces may represent narrowing/partial [id number] ofthe ureter and mild hydronephrosis or sequela [...] Prince MD Division of Hospital Medicine [phone] [facility] Work Phone: 05-15-2022 History and physical note Internal Medicine Admission History & Physical Patient: George Styles, 1970, [id number] Physician: Evan Bennett MD, PGY1, Pager #[phone], GM 4 service Date of face to [...] DAY SURGERY MAIN OR KIDNEY TRANSPLANT W/O COQUILLE NEPHRECTOMY N/A 04/12/2020 Laterality: N/A; Surgeon: LU [...] erythema: Skin: No jaundice or rash Neuro: tablet repair 3-7, 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 Strength grossly [...] dilation of the calyces may represent narrowing/partial [id number] ofthe ureter and mild hydronephrosis or sequela [...] Medicine [id number] documented in this encounter [facility] 05-15-2022 Emergency department Note Bladder scan with Dr Villatoro at bedside, 14ml noted [facility] 05-15-2022 Consult note Associated Order [...] states he went to his local ED [place] and he was put on Flomax and he did improve. Pt states last night he was unable to void with severe right sided abd pain. Pt states nausea and no vomiting or fevers. Pt states he went back to [place] ED at 0100 and they placed [...] orthotopic (N/A, 04/12/2020); and kidney transplant w/o [place] nephrectomy (N/A, 04/12/2020). 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 The [place] kidneys are progressively atrophic bilaterally compared to [...] of 06/14/2020 are no longer present. The [place] distal right ureter is decompressed beyond this [...] with surgical history for renal graft and [place] right urinary drainage, as a discrete ureteroneocystostomy is not identified, and the graft may be draining via a ureteroureterostomy. Urology consultation recommended. 3. The [place] kidneys are bilaterally atrophic, with right renal sinus calcifications consistent with nonobstructing right [place] renal calculi up to 6 mm. Normal [...] PGY-3, Department of Urologic Surgery Pager #: [phone] Associated attestation - Ryan Yepez MD - [...] before surgical intervention --may continue flomax [facility] Work Phone: 05-15-2022 Emergency department Note Advised Dr Schneider concerning no urine output via matias catheter. [facility] 05-15-2022 Physician Emergency department Note [...] plan of care. Gian Villatoro MD 05/15/222003 [facility] Work Phone: 05-15-[address] Schneider made aware of only 30 ml urine via matias since arrival to room. [facility] 05-15-2022 Physician Emergency department Note dEPARTMENT [...] 04/12/2020 Laterality: N/A; Surgeon: LU Palma; Location: [facility] SAME DAY SURGERY MAIN OR KIDNEY TRANSPLANT W/O COQUILLE NEPHRECTOMY N/A 04/12/2020 Laterality: N/A; Surgeon: LU Palma; Location: [facility] SAME DAY SURGERY MAIN [...] any incorrections. Matt Schneider MD Resident 05/15/222030 [facility] Work Phone: 05-15-2022 Emergency department Note Pt arrives from [facility] with kidney stones. Pt states he had right lower abd pain and right flank pain with blood in his urine since Thursday. Pt states he went to his local ED [place] and he was put on Flomax and he did improve. Pt states last night he was unable to void with severe right sided abd pain. Pt states nausea and no vomiting or fevers. Pt states he went back to [place] ED at 0100 and they placed a matias and CT scan completed and multiple kidney stones noted. Pt sent to [facility] ED as he had liver and kidney transplant in 03/2020. [facility] 03-14-2022 History of Present illness Narrative [...] Required: No Mailing/Pickup Date: 03/17/2022 Shipping Address: [address] [place] [address] [address] Contact Info: Specialty ([place]) [phone] [facility] [phone] [facility] [phone] [facility] [phone] Bedside Delivery ([facility]) [phone] documented in this encounter [facility] 06-14-2021 History of Present illness Narrative [...] Goal Progress: Satisfactory Contact Info: Specialty ([place]) [phone] [facility] [phone] [facility] [phone] [facility] [phone] Bedside Delivery ([facility]) [phone] [facility]: Call Information: Date [...] Location: Home Signature Required: Yes Shipping Address: [address] [place] [address] Contact Info: Specialty ([place]) [phone] [facility] [phone] [facility] [phone] [place] [phone] Bedside Delivery ([facility]) [phone] documented in this encounter [facility] + Plan note Future Appointments Appointment Date:11/22/2024 09:00:00 AM Scheduled Provider:JONATHAN Almodovar APRN, [place] [facility] Location:[facility] Appointment Type:URO Office Visit [facility] Evaluation note Diagnosis FAYE (acute kidney injury)- Primary Acute kidney failure, unspecified Hydronephrosis due to obstruction of ureteral orifice Hydronephrosis due to obstruction of ureteral orifice FAYE (acute kidney injury) Acute kidney failure, unspecified [facility] Diagnosis Follow-up exam- Primary Unspecified follow-up examination [facility]* Diagnosis Immunosuppressed status- Primary Unspecified disorder of immune mechanism Kidney replaced by transplant Liver replaced by transplant Abnormal blood chemistry Other abnormal blood chemistry High risk medication use Encounter for long-term (current) use of other medications Aftercare following organ transplant Liver transplant recipient [facility]* Diagnosis Attention to nephrostomy- Primary [facility] Diagnosis Other hydronephrosis- Primary [facility] Diagnosis FAYE (acute kidney injury) Acute kidney failure, unspecified [facility]* Diagnosis Other hydronephrosis- Primary -donor kidney transplant recipient Kidney replaced by transplant [facility]* Diagnosis Other hydronephrosis [facility]* Diagnosis 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) Encounter for screening for malignant neoplasm of prostate Special screening for malignant neoplasm of prostate [facility]* Diagnosis Abnormal blood chemistry- Primary Other abnormal blood chemistry Liver transplant recipient Kidney replaced by transplant Immunosuppressed status Unspecified disorder of immune mechanism Aftercare following organ transplant [facility]* Diagnosis Kidney replaced by transplant- Primary [facility]* Diagnosis Immunosuppressed status- Primary Unspecified disorder of immune mechanism Kidney replaced by transplant Aftercare following organ transplant High risk medication use Encounter for long-term (current) use of other medications Other general symptoms and signs Abnormal blood chemistry Other abnormal blood chemistry Hypertension secondary to other renal disorders [facility]* Diagnosis Histoplasmosis- Primary Histoplasmosis, unspecified [...] Fever, unspecified [facility] Diagnosis Bilateral lower extremity edema- Primary 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) Atherosclerosis 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) Atherosclerosis of aorta Obesity (BMI 30-39.9) DARLENE (obstructive sleep apnea) Obstructive sleep apnea (adult) (pediatric) Tremor Abnormal involuntary movements Immunocompromised (CMS/HCC) Unspecified immunity deficiency Primary hypertension (CMS/HCC) Unspecified essential hypertension Shortness of breath documented in this encounter [facility]* Diagnosis Pleural effusion on [...] specified pre-operative examination [facility]* Diagnosis Heart failure, diastolic, acute- Primary Acute diastolic heart failure [facility]* Diagnosis Liver lesion- Primary Other specified disorders of liver Liver transplant recipient High risk medication use Encounter for long-term (current) use of other medications Therapeutic drug monitoring Encounter for therapeutic drug monitoring Immunocompromised Unspecified immunity deficiency [facility]* Diagnosis Kidney replaced by transplant- Primary [facility]* Diagnosis DARLENE (obstructive sleep apnea)- Primary [...] available for this section [facility] progress note No data available for this section [facility] reason for referral (narrative)* Consultation (Routine) - New Request Specialty Diagnoses / Procedures Referred By Deni edwards Referred To Contact Interventional Radiology Diagnoses Hydronephrosis due to obstruction of ureteral orifice Daya Saldana MD [address] [place] [address] Referral ID Status Reason Start Date Expiration Date V isits Requested Visits Authorized [id number] New Request 05/18/2022 06/12/2023 1 1 * Radiology (Emergency) - New Request Specialty Diagnoses / Procedures Referred By Deni t Referred To Contact Procedures US RENAL TRANSPLANT SCAN Daya Saldana MD [address] [place] [address] Referral ID Status Reason Start Date Expiration Date V isits Requested Visits Authorized [id number] New Request 05/16/2022 06/10/2023 1 1 * Consultation (Routine) - New Request Specialty Diagnoses / Procedures Referred By Deni t Referred To Contact Urology Diagnoses FAYE (acute kidney injury) Ryan Yepez MD [address] [place] [address] [address] [place] [address] Referral ID Status Reason Start Date Expiration Date V isits Requested Visits Authorized [id number] New Request 05/16/2022 06/10/2023 1 1 * MRI/CAT Scan (Routine) - New Request Specialty Diagnoses / Procedures Referred By Deni edwards Referred To Contact Diagnoses FAYE (acute kidney injury) Procedures CT ABDOMEN/PELVIS WITHOUT CONTRAST CHG CT SCAN,ABDOMENT AND PELVIS,W/O CONTRAST Ryan Yepez MD [address] [place] [address] [address] [place] [address] Referral ID Status Reason Start Date Expiration Date V isits Requested Visits Authorized [id number] New Request 05/16/2022 06/10/2023 1 1 * (Routine) - Pending Review Specialty Diagnoses / Procedures Referred By Deni t Referred To Contact Procedures PLATELET MONITORING PER PROTOCOL Daya Saldana MD [address] [place] [address] Referral ID Status Reason Start Date Expiration Date V isits Requested Visits Authorized [id number] Pending Review 05/15/2022 06/09/2023 1 1 * (Routine) - Pending Review Specialty Diagnoses / Procedures Referred By Contac t Referred To Contact Procedures DVT/VTE RISK ASSESSMENT Daya Saldana MD [address] [place] [address] Referral ID Status Reason Start Date Expiration Date V isits Requested Visits Authorized [id number] Pending Review 05/15/2022 06/09/2023 1 1 * (Routine) Specialty Diagnoses / Procedures Referred By Contac t Referred To Contact Evan Bennett MD [address] [place] [address] Referral ID Status Reason Start Date Expiration Date Visits Re quested Visits Authorized * (Routine) Specialty Diagnoses / Procedures Referred By Contac t Referred To Contact Evan Bennett MD [address] [place] [address] Referral ID Status Reason Start Date Expiration Date Visits Re quested Visits Authorized [facility] for referral (narrative)* Consultation (Routine) - New Request Specialty Diagnoses / Procedures Referred By Contac t Referred To Contact Sleep Medicine Diagnoses Hypoxia Kevin Prince MD [address], [place] [address] Referral ID Status Reason Start Date Expiration Date V isits Requested Visits Authorized [id number] New Request 09/10/2023 10/04/2024 1 1 * MRI/CAT Scan (Routine) - New Request Specialty Diagnoses / Procedures Referred By Contac t Referred To Contact Diagnoses Histoplasmosis Procedures CT CHEST WITHOUT CONTRAST CHG DIAGNOSTIC COMPUTED TOMOGRAPHY THORAX W/O ROBERTT Kevin Prince MD [address] [place] [address] Referral ID Status Reason Start Date Expiration Date V isits Requested Visits Authorized [id number] New Request 09/10/2023 10/04/2024 1 1 * Radiology (Routine) - New Request Specialty Diagnoses / Procedures Referred By Contac t Referred To Contact Procedures US RENAL TRANSPLANT SCAN Steve Munoz MBBS [address] [place] [address] Referral ID Status Reason Start Date Expiration Date V isits Requested Visits Authorized [id number] New Request 08/29/2023 09/22/2024 1 1 * (Routine) - New Request Specialty Diagnoses / Procedures Referred By Contac t Referred To Contact Procedures PLATELET MONITORING PER PROTOCOL Steve Munoz MBBS [address], [place] [address] Referral ID Status Reason Start Date Expiration Date V isits Requested Visits Authorized [id number] New Request 08/28/2023 09/21/2024 1 1 * (Routine) - New Request Specialty Diagnoses / Procedures Referred By Contac t Referred To Contact Procedures DVT/VTE RISK ASSESSMENT Steve Munoz MBBS [address] [place] [address] Referral ID Status Reason Start Date Expiration Date V isits Requested Visits Authorized [id number] New Request 08/28/2023 09/21/2024 1 1 [facility] Instructions * Patient Instructions - Samycolt Christin MagalieDEEP-COWLMAN - 10/19/2018 9:21 AM EST You should take an extra dose of the lactulose as needed so that you are having 3-4 bowel movementsdaily. You should start the chemical dependency counseling as soon as possible. If you have questions, call the transplant social service assistant Fidelina Pierson. in this encounter* Patient Instructions - Sophie Cary RN - 10/12/2018 11:09 AM EST You have been seen in the pre-transplant evaluation clinic by Dr. Restrepo and Sophie Cary. Sophie Cary is your pre-orthodontic treatment coordinator she can be reached at [phone] at any time for questions during the pre-transplant process. Your evaluation is complete pendin. Abdominal ultrasound. 2. 6 minute walk test. 3. Cardiology evaluation. Additionally, your printing press operator apprentice will recommend testing to screen for coronary artery disease. This will be scheduled for you after your cardiology visit. 4. Your coordinator will be requesting record from your last dental visit, colonoscopy and EGD. 5. Please work to complete social work recommendations. Your social service assistant will be contacting you to follow up on your progress. 6. You have also been referred for a kidney transplant. An appointment will be scheduled for you sari evaluated in the kidney transplant clinic after you have satisfied requirements dictated by yourElder's [employer] company. Once your testing is complete, we [...] ___ Other Name MRN * Christin Elizabeth, [employer] [facility] - 10/19/2018 9:00 AM EST Formatting of this note may be different from the original. History of Present Illness: Chief Complaint Patient presents with Follow-up Cirrhosis George Styles is a 48 y.o. male who presents to the [facility] today regarding his diagnosis/chief complaint(s) of Cirrhosis secondary to ETOH, with ESRD follows with Dr. Orr. Currently undergoing evaluation for liver/kidney transplant. Has been seen in transplant clinic for eval. Still undergoing pre testing. Diagnosed in April 2018. Last drink was immediately prior to hospital admission in [place] for ACLF. Hospital course notable for ARF [...] (human immunodeficiency virus infection); Hyperlipidemia; Hyperthyroidism; Hypothyroidism; TN (myocardial infarction); Migraine; DARLENE (obstructive sleep apnea); [...] kidney transplant evaluation. Pt was AOx3. Transplant Cap Inspector role/function was explained and reviewed. The patient was informed that the results of this assessment will be shared with the referring provider and the transplant team. The patient verbalized understanding of this information. The [facility] psychosocial assessment consent form has been explained to patient and has been signed. Pt is completing this evaluation with brother (David) in the Outpatient setting. NANCYK educated pt on the benefits of completing/filing advanced directives and resources were offered. Pt identifies with AMISH gnosticist. Pt confirms being a [place] Citizen. Pt.'s primary language is Czech. Pt confirms the ability to read,write, and understand Czech. Pt denies potential donors. Donor cards and [...] has valid license, does not regularly drive ([facility] recommends that he not to drive). He [...] related disease etoh cirrohosis April dx in [facility] for thirty days. Pt reports learning [...] as well as referred him to pre orthodontic treatment coordinator. Pt and support demonstrated moderate understanding [...] Patient's brother David is a self employed yield clerk. Additional support includes his other brother Tyshawn and his Mayr live fifteen minutes away. 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 He confirms being comfortable asking for help. [...] in 2010, he was employed by the [employer]. He has access to SSDI payment (SSDI starts in November) in regards to financial means pre/ post-transplant. Pt confirms (meeting bills currently, ) being able to meet daily needs. Patient's brother asking for additional information on community resources, food stamps and [place]. Refer him to pt.'s dialysis center and the [facility]. Hereports access to Medicaid. Pt. denies [...] treatment after a DUI charge [facility] in [place], court ordered treatment in 2001 and in [...] by patient from his primary medical provider- [facility] patient was noted as attending an alcohol [...] new visit Date of service: 10/12/2018 -Referring collection systems administrator for today's consult: -Primary Care Provider: [...] EST Timed up and go 9.9 seconds Cartography Technician Left 52.8 pounds Right 44.9 pounds Waist circ 38.5 inches * Sophie Cary, SAMI - 10/12/2018 10:00 AM EST Formatting of this note may be different from the original. Patient George Styles ([id number]), accompanied by his brother, was seen on [...] any further questions. Sophie GUERINN, RN Liver Grill Attendant Etiology: ETOH HCC: No ETOH: Yes [...] Orr MD [address] [address] Status Reason Specialty Diagnoses / Procedures Referred By Contact Referred To Contact New Request Diagnoses Cirrhosis of liver with ascites, unspecified hepatic cirrhosis type Procedures US ABDOMEN RUQ/LIVER/GB Yovani Orr MD [address] [address] Specialty Diagnoses / Procedures Referred By Contac t Referred To Contact Diagnoses FAYE (acute kidney injury) Procedures CT ABDOMEN/PELVIS WITHOUT CONTRAST CHG CT SCAN,ABDOMENT AND PELVIS,W/O CONTRAST Central Scheduling [facility] [place] [address] Referral ID Status Reason Start Date Expiration Date V isits Requested Visits Authorized [id number] Pending Review 05/16/2022 06/10/2023 1 1 Specialty Diagnoses / Procedures Referred By Contac t Referred To Contact Diagnoses Other hydronephrosis Procedures FLUORO IMAGING FOR UROLOGY Ryan Yepez MD [address] [facility] [address] [place] [address] Referral ID Status Reason Start Date Expiration Date V isits Requested Visits Authorized [id number] New Request 07/07/2022 08/01/2023 1 1 Specialty Diagnoses / Procedures Referred By Contac t Referred To Contact Procedures DIRECT ADMIT REQUEST Steve Munoz MBBS [address] [place] [address] Referral ID Status Reason Start Date Expiration Date V isits Requested Visits Authorized [id number] New Request 08/28/2023 09/21/2024 1 1 Specialty Diagnoses / Procedures Referred By Contac t Referred To Contact Radiology Diagnoses DARLENE (obstructive sleep apnea) Primary hypertension (CMS/HCC) Bilateral lower extremity edema Shortness of breath Procedures Echocardiogram 2D complete Zuly Bruno NP [address] [place] [address] Referral ID Status Reason Start Date Expiration Date Visits Requested Visits Authorized [id number] Incomplete Perform Procedure 01/06/2024 07/04/2024 1 1 Specialty Diagnoses / Procedures Referred By Contac t Referred To Contact Procedures US IMAGING REGIONAL ANESTHESIA Kehinde Gutierrez MD [address] [place] [address] Referral ID Status Reason Start Date Expiration Date V isits Requested Visits Authorized [id number] New Request 01/22/2024 02/15/2025 1 1 Specialty Diagnoses / Procedures Referred By Contac t Referred To Contact Cardiovascular Medicine Diagnoses Heart failure, diastolic, acute Kelvin Pacheco MD, MBBS [address] [place] [address] Referral ID Status Reason Start Date Expiration Date V isits Requested Visits Authorized [id number] New Request 01/20/2024 02/13/2025 1 1 Specialty Diagnoses / Procedures Referred By Contac t Referred To Contact Procedures US ABDOMEN LIVER DOPPLER US ABDOMEN LIVER TRANSPLANT DOPPLER Timothy Joseph MD [address] [facility] [address] [place] [address] Referral ID Status Reason Start Date Expiration Date V isits Requested Visits Authorized [id number] New Request 01/16/2024 02/09/2025 1 1 Specialty Diagnoses / Procedures Referred By Contac t Referred To Contact Procedures DVT/VTE RISK ASSESSMENT Kelvin Pacheco MD, MBBS [address] [place] [address] Referral ID Status Reason Start Date Expiration Date V isits Requested Visits Authorized [id number] New Request 01/16/2024 02/09/2025 1 1 Specialty Diagnoses / Procedures Referred By Contac t Referred To Contact Procedures PLATELET MONITORING PER PROTOCOL Kelvin Pacheco MD, MBBS [address] [place] [address] Referral ID Status Reason Start Date Expiration Date V isits Requested Visits Authorized [id number] New Request 01/16/2024 02/09/2025 1 1 Referral ID Status Reason Start Date Expiration Date V isits Requested Visits Authorized [id number] New Request 01/16/2024 02/09/2025 1 1 Specialty Diagnoses / Procedures Referred By Contac t Referred To Contact Procedures ECG Kelvin Pacheco MD, MBBS [address] [place] [address] Referral ID Status Reason Start Date Expiration Date V isits Requested Visits Authorized [id number] New Request 01/16/2024 02/09/2025 1 1 Specialty Diagnoses / Procedures Referred By Contac t Referred To Contact Diagnoses Liver lesion Procedures MRI ABDOMEN WITH AND WITHOUT CONTRAST CHG MRI ABDOMEN W/O & W/CONTRAST MATERIAL Smithcarl Daisha Tray, DO [address] [place] [address] Referral ID Status Reason Start Date Expiration Date V isits Requested Visits Authorized [id number] New Request 06/17/2024 07/12/2025 1 1 Advance Directives Documents on File Type Date Recorded Patient Flue Blower Expl anation Advance Directives and Living Will Power of Salmon Troll Fisher Latest Code Status on File Code Status [...] Orr MD [address] [address] Status Reason Specialty Diagnoses / Procedures Referre d By Contact Referred To Contact Denied Diagnoses Alcoholic cirrhosis, unspecified whether ascites present Pre-transplant evaluation for liver transplant Procedures MRI ABDOMEN WITH CONTRAST RI MRI, ABDOMEN W/CONTRAST Yovani Orr MD [address] [address] Reason Comments Liver Recipient Evaluation Status Reason Specialty Diagnoses / Procedures Referred By Contact Referred To Contact New Request Transplant / Transplant Surgery Procedures PRE NEW PATIENT Yovani Orr MD [address] [address] Alfredito Restrepo MD [address] [place] [address] Reason Comments Reschedule Reason Comments Outside Medical Records Request Reason Comments Social Work Follow-up Reason Comments Kidney Stone Specialty Diagnoses / Procedures Referred By Contac t Referred To Contact Diagnoses Obstructing kidney stone, s/p kidney transplant 2019 Daya Saldana MD [address] [place] [address] [facility] [address] [place] [address] Referral ID Status Reason Start Date Expiration Date Visits Re quested Visits Authorized [id number] 1 1 Reason Comments Follow-up Reason Comments Kidney Recipient Follow-up Liver Recipient Follow-up Reason Comments Consult Reason Comments New Patient Hospital follow up Specialty Diagnoses / Procedures Referred By Contac t Referred To Contact Urology Diagnoses hosp fu with [address] prior Procedures NEW TO DOC/RET PATIENT Zuly Bruno CNP [address] [place] [address] Ryan Yepez MD [address] [facility] [address] [place] [address] Referral ID Status Reason Start Date Expiration Date Visits Re quested Visits Authorized [id number] Closed 06/27/2022 07/22/2023 1 1 Specialty Diagnoses / Procedures Referred By Contac t Referred To Contact Diagnoses FAYE (acute kidney injury) Procedures CT ABDOMEN/PELVIS WITHOUT CONTRAST CHG CT SCAN,ABDOMENT AND PELVIS,W/O CONTRAST Central Scheduling [address] [place] [address] Referral ID Status Reason Start Date Expiration Date V isits Requested Visits Authorized [id number] Pending Review 05/16/2022 06/10/2023 1 1 Reason Comments Follow-up Specialty Diagnoses / Procedures Referred By Contac t Referred To Contact Urology Diagnoses 1 week fu post NT clamp Procedures RETURN PATIENT Zuly Bruno CNP [address] [place] [address] Ryan Yepez MD [address] [facility] [address] [place] [phone] Referral ID Status Reason Start Date Expiration Date Visits Requested Visits Authorized [id number] Authorized - 07/07/2022 08/01/2023 2 2 Specialty Diagnoses / Procedures Referred By Contac t Referred To Contact Diagnoses Other hydronephrosis Procedures FLUORO IMAGING FOR UROLOGY Ryan Yepez MD [address] [place] [address] [address] [place] [address] Referral ID Status Reason Start Date Expiration Date V isits Requested Visits Authorized [id number] New Request 07/07/2022 08/01/2023 1 1 Specialty Diagnoses / Procedures Referred By Contac t Referred To Contact Urology Diagnoses 1 week fu post NT clamp Procedures RETURN PATIENT Zuly Bruno, [facility] [address] [place] [address] Ryan Yepez MD [address] [place] [address] [address] [place] [address] Referral ID Status Reason Start Date Expiration Date Visits Re quested Visits Authorized [id number] Closed 07/07/2022 08/01/2023 2 2 Reason Comments Liver Recipient Follow-up Reason Comments Kidney Recipient Follow-up Reason Comments Kidney Recipient Follow-up Specialty Diagnoses / Procedures Referred By Contac t Referred To Contact Diagnoses Kidney replaced by transplant Steve Munoz MBBS [address] [place] [address] [facility] [address] [place] [address] Referral ID Status Reason Start Date Expiration Date Visits Re quested Visits Authorized [id number] 1 1 Specialty Diagnoses / Procedures Referred By Contac t Referred To Contact Diagnoses Pleural effusion on right PNEUMONIA- HX LIVER AND KIDNEY TRANSPLANT Kevin Prince MD [address] [place] [address] [facility] [address] [place] [address] Referral ID Status Reason Start Date Expiration Date Visits Re quested Visits Authorized [id number] 1 1 Reason Comments New Patient Specialty Diagnoses / Procedures Referred By Contac t Referred To Contact Cardiovascular Medicine Diagnoses Heart failure, diastolic, acute Kelvin Pacheco MD, MBBS [address] 1[address] [place] [address] Referral ID Status Reason Start Date Expiration Date Visits Requested Visits Authorized [id number] Authorized - 01/20/2024 02/13/2025 5 5 Reason [...] DATE CREATED AUTHOR AUTHOR'S ORGANIZ ATION 01/27/2021 [facility] DATE CREATED AUTHOR AUTHOR'S ORGANIZ ATION 05/11/2023 [facility] DATE CREATED AUTHOR AUTHOR'S ORGANIZ ATION 06/03/2024 [facility] DATE CREATED AUTHOR AUTHOR'S ORGANIZ ATION 08/25/2024 [facility] dical Specialists [facility] DATE CREATED AUTHOR AUTHOR'S ORGANIZ ATION 09/09/2024 [facility] DATE CREATED AUTHOR AUTHOR'S ORGANIZ ATION 09/10/2024 [facility] Care Teams (unrecognized sec tion and content) Library Services Coordinator Relationship Specialty Start Date End Date Zuly Bruno CNP PCP - General 07/19/18 Comfort Rivera, [facility] [address] [facility] [address] [place] [address] Pharmacist Pharmacist 05/16/20 Angel Carpio [facility],PharmD Pharmacist Pharmacist 05/16/20 Te Leigh RP,PharmD Pharmacist Pharmacist 01/09/21 Library Services Coordinator Relationship Specialty Start Date End Date Zuly Bruno CNP PCP - General 07/19/18 Comfort Rivera, [address] [place] [address] Pharmacist Pharmacist 05/16/20 Angel Carpio [facility],PharmD Pharmacist Pharmacist 05/16/20 Te Leigh RP,PharmD Pharmacist Pharmacist 01/09/21 Library Services Coordinator Relationship Specialty Start Date End Date Zuly Bruno CNP PCP - General 07/19/18 Library Services Coordinator Relationship Specialty Start Date End Date Zuly Bruno CNP PCP - General 07/19/18 Library Services Coordinator Relationship Specialty Start Date End Date Zuly Bruno CNP PCP - General 07/19/18 Library Services Coordinator Relationship Specialty Start Date End Date Zuly Bruno CNP PCP - General 07/19/18 Library Services Coordinator Relationship Specialty Start Date End Date Zuly Bruno CNP PCP - General 07/19/18 Library Services Coordinator Relationship Specialty Start Date End Date Zuly Bruno CNP PCP - General 07/19/18 Library Services Coordinator Relationship Specialty Start Date End Date Zuly Bruno CNP PCP - General 07/19/18 Library Services Coordinator Relationship Specialty Start Date End Date Zuly Bruno CNP PCP - General 07/19/18 Library Services Coordinator Relationship Specialty Start Date End Date Zuly Bruno CNP PCP - General 07/19/18 Library Services Coordinator Relationship Specialty Start Date End Date Zuly Bruno CNP PCP - General 07/19/18 Library Services Coordinator Relationship Specialty Start Date End Date Zuly Bruno CNP PCP - General 07/19/18 Library Services Coordinator Relationship Specialty Start Date End Date Zuly Bruno CNP PCP - General 07/19/18 Library Services Coordinator Relationship Specialty Start Date End Date Zuly Bruno CNP PCP - General 07/19/18 Library Services Coordinator Relationship Specialty Start Date End Date Zuly Bruno CNP PCP - General 07/19/18 Library Services Coordinator Relationship Specialty Start Date End Date BrianlatishaZuly tipton CNP PCP - General 07/19/18 Evan White DO [address] [place] [address] Infectious Disease Infectious Disease 09/09/23 Library Services Coordinator Relationship Specialty Start Date End Date KristopherlydialatishaZuly tipton ROB PCP - General 07/19/18 Evan White DO [facility] [place] [address] Infectious Disease Infectious Disease 09/09/23 Library Services Coordinator Relationship Specialty Start Date End Date Zuly Bruno CNP PCP - General 07/19/18 Evan White DO [facility] [place] [address] Infectious Disease Infectious Disease 09/09/23 Library Services Coordinator Relationship Specialty Start Date End Date Momo Verdugo MD PCP - General Family Medicine 05/21/23 Library Services Coordinator Relationship Specialty Start Date End Date Momo Verdugo MD PCP - General Family Medicine 05/21/23 Library Services Coordinator Relationship Specialty Start Date End Date Momo Verdugo MD PCP - General Family Medicine 05/21/23 Library Services Coordinator Relationship Specialty Start Date End Date Zuly Bruno CNP PCP - General 07/19/18 Evan White DO [facility] [place] [address] Infectious Disease Infectious Disease 09/09/23 Library Services Coordinator Relationship Specialty Start Date End Date Zuly Bruno CNP PCP - General 07/19/18 Evan White DO [address] [place] [address] Infectious Disease Infectious Disease 09/09/23 Library Services Coordinator Relationship Specialty Start Date End Date Zuly Bruno CNP PCP - General 07/19/18 Evan White DO [address] [place] [address] Infectious Disease Infectious Disease 09/09/23 Library Services Coordinator Relationship Specialty Start Date End Date Zuly Bruno CNP PCP - General 07/19/18 Evan White DO [address] [place] [address] Infectious Disease Infectious Disease 09/09/23 Library Services Coordinator Relationship Specialty Start Date End Date Zuly Bruno CNP PCP - General 07/19/18 Evan White DO [address] [place] [address] Infectious Disease Infectious Disease 09/09/23 Library Services Coordinator Relationship Specialty Start Date End Date Zuly Bruno CNP PCP - General 07/19/18 Library Services Coordinator Relationship Specialty Start Date End Date Zuly Bruno CNP PCP - General 07/19/18 Library Services Coordinator Relationship Specialty Start Date End Date Zuly Bruno CNP PCP - General 07/19/18 Library Services Coordinator Relationship Specialty Start Date End Date Zuly Bruno CNP PCP - General 07/19/18 Library Services Coordinator Relationship Specialty Start Date End Date Zuly Bruno CNP PCP - General 07/19/18 Library Services Coordinator Relationship Specialty Start Date End Date Zuly Bruno CNP PCP - General 07/19/18 Library Services Coordinator Relationship Specialty Start Date End Date Zuly Bruno CNP PCP - General 07/19/18 Library Services Coordinator Relationship Specialty Start Date End Date Momo Verdugo MD [address] [place] [address] PCP - General Family Medicine 02/11/24 Zuly Bruno NP [address] [place] [address] Nurse Practitioner Family Medicine 02/11/24 Kasandra Thomas DO [address] [place] [address] Referring Physician Neurology 02/17/24 Library Services Coordinator Relationship Specialty Start Date End Date Momo Verdugo MD [address] [place] [id number] PCP - General Family Medicine 02/11/24 Zuly Bruno NP [address] [place] [address] Nurse Practitioner Family Medicine 02/11/24 Kasandra Thomas DO [address] [place] [address] Referring Physician Neurology 02/17/24 Scheduled Active and [...] 0841 (Given - Provider: Terra Heart RN)105 ([facility] Hold - Provider: Automatic Transfer - Reason: Transfer to a Procedural area)141 ([facility] Unhold - Provider: Automatic Transfer)2008 (Given - Provider: Tati Ahmadi RN) 09 (Given - Provider: Terra Heart RN) Sulfamethoxazole-trime thoprim (BACTRIM DS) 800-160 MG per tablet 1 tablet 1 tablet, Oral, THREE TIMES WEEKLY (Once per day on Thursday), First dose on Thu01/18/24 at 0900, Until Discontinued 0846 (Given - Provider: Terra Heart RN)1052 ([facility] Hold - Provider: Automatic Transfer - Reason: Transfer to a Procedural area)1413 ([facility] Unhold - Provider: Automatic Transfer) tacrolimus (PROGRAF) susp 0.2 mg 0.2 mg, Oral, CUSTOM FREQUENCY (Once per day on Thursday), First dose on Thu01/16/24 at 0900, Until Discontinued, Caution check route of administration. For sublingual administration, place liquid under tongue and allow absorption. 0842 (Given - Provider: Erica Gudino RN) 1052 ([facility] Hold - Provider: Automatic Transfer - Reason: Transfer to a Procedural area)1413 ([facility] Unhold - Provider: Automatic Transfer) 922 (Given - Provider: Terra Heart RN) Tamsulosin HCl (FLOMAX) capsule 0.4 mg 0.4 mg, Oral, DAILY, First dose on Thu01/16/24 at 0900, Until Discontinued, Slow release product. Do not chew or crush 0842 (Given - Provider: Erica Gudino RN) 0841 (Given - Provider: Terra Heart RN)105 ([facility] Hold - Provider: Automatic Transfer - Reason: Transfer to a Procedural area)141 ([facility] Unhold - Provider: Automatic Transfer) [...] 0841 (Given - Provider: Terra Heart RN)1053 ([facility] Hold - Provider: Automatic Transfer - Reason: Transfer to a Procedural area)1414 ([facility] Unhold - Provider: Automatic Transfer) [...] from all sources in 24 hours. 1053 ([facility] Hold - Provider: Automatic Transfer - Reason: Transfer to a Procedural area)1414 ([facility] Unhold - Provider: Automatic Transfer)1806 [...] 200-200 mg and Simethicone 20 mg) 1053 ([facility] Hold - Provider: Automatic Transfer - Reason: Transfer to a Procedural area)1414 ([facility] Unhold - Provider: Automatic Transfer) guaiFENesin (ROBITUSSIN) oral solution 400 mg 400 mg, Oral, EVERY 6 HOURS NEEDED, Starting on 01/16/24 at 0202, Until 01/23/24 at 1752, Cough, Congestion 1053 ([facility] Hold - Provider: Automatic Transfer - Reason: Transfer to a Procedural area)1414 ([facility] Unhold - Provider: Automatic Transfer) [...] 0016, Until 01/23/24 at 1752, Insomnia 1053 ([facility] Hold - Provider: Automatic Transfer - Reason: Transfer to a Procedural area)1414 ([facility] Unhold - Provider: Automatic Transfer)2355 (Given - Provider: Tati Ahmadi RN) Ondansetron (ZOFRAN) tablet 4 mg(Linked Group 1) 4 mg, Oral, EVERY 6 HOURS NEEDED, Starting on 01/16/24 at 0202, Until 01/23/24 at 1752, Nausea / Vomiting, 1st line for Nausea/Vomiting 1053 ([facility] Hold - Provider: Automatic Transfer - Reason: Transfer to a Procedural area)1414 ([facility] Unhold - Provider: Automatic Transfer)1809 (See Alternative - Provider: Terra Heart RN) 0430 (See Alternative - Provider: Tati Ahmadi RN)1415 (Given - Provider: Terra Heart RN) Ondansetron 4mg/2ml (ZOFRAN) injection 4 mg(Linked Group 1) 4 mg, Intravenous, EVERY 6 HOURS NEEDED, Starting on 01/16/24 at 0202, Until 01/23/24 at 1752, Nausea / Vomiting, 1st line for Nausea/Vomiting 1053 ([facility] Hold - Provider: Automatic Transfer - Reason: Transfer to a Procedural area)1414 ([facility] Unhold - Provider: Automatic Transfer)1809 [...] 01/23/24 at 1752, Constipation 1st Line 1053 ([facility] Hold - Provider: Automatic Transfer - Reason: Transfer to a Procedural area)1414 ([facility] Unhold - Provider: Automatic Transfer) Prochlorperazine (COMPAZINE) injection 10 mg 10 mg, Intravenous, EVERY 6 HOURS NEEDED, Starting on 01/17/24 at 1538, Until 01/23/24 at 1752, Nausea / Vomiting, Refractory Nausea Vomiting, For IV route: dilute dose with 10mL normal saline and give by slow IV push at a rate of 5mg/min. Maximum of 40mg/day. 1053 ([facility] Hold - Provider: Automatic Transfer - Reason: Transfer to a Procedural area)1414 ([facility] Unhold - Provider: Automatic Transfer)2349 [...] the intermittent or piggy back medication. 1053 ([facility] [facility] Hold - Provider: Automatic Transfer [...] BE BASED ON THE PRIMARY CLINICAL RECORDS. [facility]. provides no warranty or guarantee of the accuracy or completeness of information in this document.
[2024-10-10 07:48] LABS: Basophils Percent Auto 0.6 % (0.2-2.0); Eosinophils Absolute Auto 0.2 10^3/uL (0.0-0.7); Eosinophils Percent Auto 3.5 % (0.9-7.0); Hematocrit 47.1 % (42.0-54.0); Hemoglobin 15.4 g/dL (14.0-18.0); Immature Granulocytes Abs Auto 0.01 10^3/uL (0.00-0.03); Immature Granulocytes Pct Auto 0.2 % (0.0-0.5); Lymphocytes Absolute Auto 1.5 10^3/uL (1.2-3.8); Lymphocytes Percent Auto 31.7 % (20.5-60.0); Mean Corpuscular HGB Conc 32.7 g/dL (29.9-35.2); Mean Corpuscular Hemoglobin 28.9 pg (25.9-34.0); Mean Corpuscular Volume 88.4 fL (80.0-94.0); Mean Platelet Volume 9.7 fL (9.5-13.5); Monocytes Absolute Auto 0.4 10^3/uL (0.3-0.8); Monocytes Percent Auto 8.6 % (1.7-12.0); Neutrophils Absolute Auto 2.7 10^3/uL (1.4-6.5); Neutrophils Percent Auto 55.4 % (43.0-75.0); Platelet Count 238 10^3/uL (150-450); Red Blood Count 5.33 10^6/uL (4.70-6.10); Red Cell Distribution Width 12.3 % (11.0-15.0); White Blood Count 4.8 10^3/uL (4.0-11.0)
[2024-10-10 09:37] LABS: Creatinine Urine Random 108.26 mg/dL (20.00-300.00); Protein Creatinine Ratio Urine 0.13; Total Protein Urine Random 13.8 mg/dL (<=11.9)
[2024-10-10 09:57] LABS: Alanine Aminotransferase 24 U/L (16-63); Albumin Level 3.7 g/dL (3.4-5.0); Alkaline Phosphatase 106 U/L (46-116); Anion Gap 14.4; Aspartate Amino Transferase 19 U/L (15-37); BUN Creatinine Ratio 11.6; Bilirubin Direct 0.2 mg/dL (0.0-0.2); Bilirubin Total 0.8 mg/dL (0.2-1.0); Calcium 9.6 mg/dL (8.5-10.1); Carbon Dioxide 26.4 mmol/L (21.0-32.0); Chloride 107 mmol/L (98-107); Estimated GFR (African America >60 (>=60 mL/min/1.73m^2); Estimated GFR (Non-African Ame >60 (>=60 mL/min/1.73m^2); Gamma Glutamyl Transpeptidase 23 U/L (15-85); Glucose 117 mg/dL (74-106); Potassium 3.8 mmol/L (3.5-5.1); Sodium 144 mmol/L (136-145)
[2024-10-12 13:09] LABS: Tacrolimus (FK506), Blood 3.4 ng/mL (2.0-20.0)
== END 2024-10-10 06:37 | disposition home or self-care (01) ==
LOC: LAB 06:38
PROVIDERS: PCP Nurse Practitioner
DX: R79.9 Abnormal finding of blood chemistry, unspecified (principal); Z94.4 Liver transplant status; Z94.0 Kidney transplant status; Z51.81 Encounter for therapeutic drug level monitoring; Z48.298 Encounter for aftercare following other organ transplant; B39.9 Histoplasmosis, unspecified; D84.9 Immunodeficiency, unspecified
CPT/HCPCS: 36415; 80048; 80189; 80197; 82042; 82247; 82248; 82570; 82977; 83735; 84075; 84100; 84156; 84450; 84460; 85025; 86612; 87385

== ENCOUNTER 2024-10-24 06:56 | Outpatient (OUT) | payer MEDICARE, MEDICAID, SELFPAY ==
--- OUTSIDE RECORDS SUMMARY | 2024-10-24 07:06 | XMS_ITS | CCD ---
Author Organization [facility] Care Team Providers Care Oven Heater Name Role Phone Kiana Zuly Unavailable Unavailable [...] Unavailable AICHHOLZ, ZULY Primary Care Unavailable Aichholz [facility], [facility] Primary Care Provider Miguel [facility] [phone] Shirin [facility],PharmD, Angel Unavailable Unavailab makayla Leigh [facility],PharmD, Te Unavailable Unavai lable Aicholz [facility], Zuly Primary Care Provider CRISTINA, DR BURCH Admitting Unavailable MISC, DR BURCH Consulting Unavailable AICHHOLZ, TRANSFORMER SHOP SUPERVISOR ZULY Primary Care Unavailable MISC, DR BURCH Attending Unavailable MISC, DR BURCH Admitting Unavailable MISC, DR BURCH Consulting Unavailable AICHHOLZ, TRANSFORMER SHOP SUPERVISOR ZULY Primary Care Unavailable MISC, DR BURCH Attending Unavailable ARCELIA PIZARRO Consulting Unavailable KE BURNHAM Attending Unavailable KE BURNHAM Admitting Unavailable DR MÓNICA JIMENEZ Consulting Unavailable AICHHOLZ, TRANSFORMER SHOP SUPERVISOR ZULY Primary Care Unavailable KE BURNHAM Consulting Unavailable MISC, DR BURCH Consulting Unavailable MISC, DR BURCH Attending Unavailable AICHHOLZ, TRANSFORMER SHOP SUPERVISOR ZULY Primary Care Unavailable MISC, DR BURCH Admitting Unavailable MISC, DR BURCH Consulting Unavailable MISC, DR DOCTOR Attending Unavailable AICHHOLZ, TRANSFORMER SHOP SUPERVISOR ZULY Primary Care Unavailable MISC, DOCTOR Admitting Unavailable MISC, DR DOCTOR Consulting Unavailable AICHHOLZ, TRANSFORMER SHOP SUPERVISOR ZULY Primary Care Unavailable MISC, DOCTOR Admitting Unavailable MISC, DR DOCTOR Attending Unavailable MELINDA, DR GEORGE Munoz Consulting Unavailable MELINDA, DR GEORGE Munoz Attending Unavailable AICHHOLZ, TRANSFORMER SHOP SUPERVISOR ZUYL Primary Care Unavailable MELINDA, DR GEORGE Munoz Admitting Unavailable NAUN ., KE Consulting Unavailable MIRANDA, LYNDSAY Consulting Unavailable MELINDA, DR GEORGE Munoz Consulting Unavailable NAUN ., KE Attending Unavailable NAUN ., KE Admitting Unavailable AICHHOLZ, TRANSFORMER SHOP SUPERVISOR ZULY Primary Care Unavailable NAUN ., KE Consulting Unavailable GIAN HERRING Consulting Unavailable AICHHOLZ, TRANSFORMER SHOP SUPERVISOR ZULY Consulting Unavailable AICHHOLZ, TRANSFORMER SHOP SUPERVISOR ZULY Attending Unavailable AICHHOLZ, TRANSFORMER SHOP SUPERVISOR ZULY Admitting Unavailable AICHHOLZ, TRANSFORMER SHOP SUPERVISOR ZULY Primary Care Unavailable MISC, DOCTOR Consulting Unavailable MISC, DOCTOR Admitting Unavailable MISC, DOCTOR Attending Unavailable AICHHOLZ, TRANSFORMER SHOP SUPERVISOR ZULY Primary Care Unavailable MISC, DR DOCTOR Consulting Unavailable MISC, DR DOCTOR Attending Unavailable MISC, DR DOCTOR Admitting Unavailable AICHHOLZ, TRANSFORMER SHOP SUPERVISOR ZULY Primary Care Unavailable MISC, DOCTOR Admitting Unavailable MISC, DOCTOR Consulting Unavailable MISC, DR DOCTOR Attending Unavailable AICHHOLZ, TRANSFORMER SHOP SUPERVISOR ZULY Primary Care Unavailable MISC, DOCTOR Admitting Unavailable MISC, DR DOCTOR Consulting Unavailable AICHHOLZ, TRANSFORMER SHOP SUPERVISOR ZULY Primary Care Unavailable MISC, DR DOCTOR Attending Unavailable MISC, DOCTOR Admitting Unavailable MISC, DR DOCTOR Consulting Unavailable AICHHOLZ, TRANSFORMER SHOP SUPERVISOR ZULY Primary Care Unavailable MISC, DR DOCTOR Attending Unavailable AICHHOLZ, TRANSFORMER SHOP SUPERVISOR ZULY Consulting Unavailable AICHHOLZ, TRANSFORMER SHOP SUPERVISOR ZULY Attending Unavailable AICHHOLZ, TRANSFORMER SHOP SUPERVISOR ZULY Admitting Unavailable AICHHOLZ, TRANSFORMER SHOP SUPERVISOR ZULY Primary Care Unavailable DR MÓNICA JIMENEZ Consulting Unavailable Aichholz [facility], Zuly Primary Care Provider Evan White DO Unavailable Aichholz [facility], Zuly Primary Care Provider Evan White DO Unavailable Momo Verdugo MD Primary Care Provider Aichholz [employer]ANSFORMER [employer]OP SUPERVISOR, Zuly Primary Care Provider MIGUEL CARDONA Attending Unavailable AICHHOLZ, ZULY Attending Unavailable AICHHOLZ, ZULY Attending Unavailable PALMA PALACIOS Attending Unavailable AICHHOLZ, ZULY Referring Unavailable KELBLEY, FIDELINA Attending Unavailable AICHHOLZ, ZULY Referring Unavailable BRINK, JOHNNA Attending Unavailable AICHHOLZ, ZLUY Referring Unavailable BRINK, JOHNNA Attending Unavailable AICHHOLZ, [...] Propensity to adverse reactions (disorder) 8 [facility] Repository (20 sources) Shellfish-Deriv ed Products Propensity to adverse reactions to drug 9 [facility] (3 sources) Shellfish; Translations: [shellfish] Drug allergy (disorder) Anaphylaxis (disorder) [facility] Repository Medications Current Medications Medication [...] 1 capsule by mouth once daily b gncamhy-V-mzcvh acid (NEPHROCAPS) 1 MG capsule Take 1 [...] ankle pain. 0 06/12/2020 06/12/2023 Discontinued lactulose 50908 mg powder for oral solution (19 sources) [...] DAILY (Solid Organ Transplant), First dose on [facility] 01/16/24 at 0800, Until Discontinued, [...] nausea or vomiting Active polyethylene glycol 3350 19155 mg powder for oral solution (20 sources) [...] 07/17/2018 Active take 2 tablets by mo [facility] three times daily at mealtime [...] day(s), # 60 cap(s), Refills(s) 11, Pharmacy: [id number], 170, cm, 09/08/24 14:00:00 EDT, Height/Length [...] Discontinued Start: 12-30-2021 take 2 tablets by [facility] once daily allopurinol 100 MG tablet Indications: Abnormal blood chemistry take 2 tablets by mouth once daily 180 tablet 3 12/30/2021 Active Start: 01-28-2021 take 2 tablets by [facility] once daily allopurinol 100 MG [...] itraconazole Fax results to: Dr. White - [phone] Transplant [facility] - [phone] Each 09/10/2023 01/19/2024 Discontinued (Medication Reconciliation (suppress cancel msg)) Start: 09-10-2023 CUSTOM MEDICAT ION Labs to be obtained: 1- Tacrolimus level, trough - collect twice weekly until 09/24/23, then weekly until 10/08/23, them once every two weeks there after. 2- Itraconazole level - obtain once between 09/14-09/18. 3- Chem 6 - Obtain weekly while on itraconazole Fax results to: Dr. White - [phone] [facility] - [phone] Each 0 09/10/2023 Active Diatrizoate (1 [...] 01/16/2023 Discontinued take 2 tablets by mo [facility] in the morning magnesium oxide (Mag-Ox) 400 MG tablet Take 2 tablets by mouth in the morning. 0 Active take 1 tablet by [facility] once daily magnesium oxide (MAG-OX) 400 [...] rate of 5mg/min. Maximum of 40mg/day. sennosides, residential 8.6 mg oral tablet (1 source) Start: [...] Date Documented Da te Episodic/Chronic Anxiety disorders (14 sources) Generalized anxiety disorder; Translations: [Generalized anxiety [...] Coronary arteriosclerosis; Translations: [Atherosclerotic heart disease of [place] coronary artery without angina pectoris] Onset: 3 04-22-2020 Chronic Disorders of lipid metabolism (10 sources) Hyperlipidemia, unspecified; Translations: [Mixed hyperlipidemia] Onset: 3 Chronic Esophageal disorders (7 sources) Gastroesophageal reflux disease; Translations: [Gastro-esophageal reflux disease without esophagitis] Onset: 3 11-03-2023 Chronic Essential hypertension (20 sources) Benign essential hypertension; Translations: [Essential (primary) hypertension] Onset: 2 04-22-2020 Chronic Genitourinary symptoms and ill-defined conditions (1 source) Finding of urological device; Translations: [Encounter for attention to other artificial openings of urinary tract] Chronic Genitourinary symptoms and ill-defined conditions (16 sources) Retention of urine, unspecified; Translations: [Hematuria, [...] other renal disorders] 08-28-2023 Chronic Immunity disorders (19 sources) Immunosuppression; Translations: [Immunodeficiency, unspecified] Onset: 2 Chronic Osteoporosis (4 sources) Osteoporosis; Translations: [Other osteoporosis without current [...] sources) Taking high risk medication; Translations: [Other watcher automat long goods (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] Episodic Other aftercare (1 source) Patient encounter status; Translations: [Encounter for therapeutic drug level monitoring] 06-17-2024 Episodic Other and ill-defined heart disease (7 sources) Dysfunction of papillary muscle; Translations: [Other ill-defined heart diseases] Onset: 3 11-03-2023 Chronic Other and ill-defined heart disease (4 sources) Diastolic dysfunction; Translations: [Other ill-defined heart diseases] Onset: 4 02-11-2024 Chronic Other diseases of kidney and ureters (4 sources) Hydronephrosis; Translations: [Hydronephrosis with ureteral stricture, not elsewhere classified] Episodic Other diseases of kidney and ureters (1 source) Urinary tract obstruction; Translations: [Other obstructive and reflux uropathy] Onset: 4 Episodic Other gastrointestinal disorders (4 sources) Constipation; Translations: [Other constipation] Onset: 4 08-23-2024 Episodic Other liver diseases (6 sources) Cirrhosis of liver; Translations: [Unspecified cirrhosis [...] unspecified] Onset: 4 Chronic Other liver diseases (4 sources) Portal hypertension; Translations: [Portal hypertension] Onset: 4 02-11-2024 Chronic Other lower respiratory disease (1 source) Hypoxia; Translations: [Hypoxemia] 09-10-2023 Episodic Other nervous system disorders (7 sources) Peripheral nerve disease ; Translations: [Polyneuropathy, unspecified] Onset: 4 12-03-2023 Chronic Other nutritional; endocrine; and metabolic disorders (20 sources) Obese class I; Translations: [Obesity, unspecified] Onset: 0 04-09-2020 Chronic Other nutritional; endocrine; and metabolic disorders (1 source) Obesity; Translations: [Obesity, unspecified] Onset: 3 11-03-2023 Chronic Other nutritional; endocrine; and metabolic disorders (7 sources) Body mass index 30+ - obesity; [...] Onset: 9 04-12-2020 Chronic Residual codes; unclassified (8 sources) Obstructive sleep apnea syndrome; Translations: [Obstructive sleep apnea (adult) (pediatric)] Onset: 3 11-21-2023 Chronic Residual codes; unclassified (4 sources) H/O: tissue/organ recipient; Translations: [Transplanted organ [...] Date Documented Da te Episodic/Chronic Abdominal hernia (4 sources) Umbilical hernia; Translations: [Umbilical hernia without obstruction or gangrene] Onset: 4 02-11-2024 Episodic Abdominal pain (7 sources) Generalized abdominal pain; Translations: [Generalized abdominal pain] Onset: 3 12-05-2023 Episodic Acute and unspecified renal failure (20 sources) Acute injury of kidney; Translations: [Acute kidney failure, unspecified] Onset: 2 Resolved: 4 Episodic Alcohol-related disorders (20 sources) Alcoholic cirrhosis; Translations: [Alcoholic cirrhosis of liver without ascites] Onset: 8 Resolved: 4 10-05-2018 Chronic Allergic reactions (4 sources) Eczema; Translations: [Dermatitis, unspecified] Onset: 4 02-25-2024 Episodic Calculus of urinary tract (12 sources) Calculus of ureter; Translations: [Kidney stone] Onset: 2 11-03-2023 Episodic Complication of device; implant or graft (11 sources) Complication of dialysis; Translations: [Unspecified complication [...] Onset: 2 Episodic Deficiency and other anemia (7 sources) Anemia; Translations: [Anemia, unspecified] Onset: 3 11-03-2023 Episodic Diabetes mellitus without complication (7 sources) Hyperglycemia; Translations: [Hyperglycemia, unspecified] Onset: 3 11-03-2023 Episodic Fever of unknown origin (20 sources) Fever; Translations: [Fever, unspecified] Onset: 3 Resolved: 3 08-28-2023 Episodic Gastrointestinal hemorrhage (11 sources) Gastrointestinal hemorrhage; Translations: [Gastrointestinal hemorrhage, unspecified] Onset: 3 Resolved: 4 11-03-2023 Episodic Malaise and fatigue (4 sources) Asthenia; Translations: [Weakness] Onset: 4 02-18-2024 Episodic Mood disorders (4 sources) Mood disorders Onset: 4 02-11-2024 Mycoses (20 sources) Histoplasmosis; Translations: [Histoplasmosis, unspecified] Onset: 3 09-10-2023 Episodic Nausea and vomiting (20 sources) Nausea and vomiting; Translations: [Nausea with vomiting, unspecified] Onset: 0 05-10-2020 Episodic Other aftercare (1 source) Other watcher automat long goods (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; Translations: [OTH GROUP HOME 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 THERAPY] Onset: 2 Episodic Other aftercare (1 source) long-term (current) use of aspirin; Translations: [CORE WINDING OPERATOR CURRENT USE OF ASPIRIN] Onset: 2 Episodic Other circulatory disease (4 sources) Other specified symptoms and signs involving the circulatory and respiratory systems; Translations: [OTH SPEC SX SIGNS INVLV CIRC RS] Onset: 2 Episodic Other circulatory disease (4 sources) Carotid bruit; Translations: [Other specified symptoms [...] 0 04-09-2020 Episodic Other lower respiratory disease (9 sources) Dyspnea; Translations: [Shortness of breath] Onset: 4 01-06-2024 Episodic Other lower respiratory disease (1 source) Shortness of breath; Translations: [Shortness of breath] Onset: 4 Episodic Other nervous system disorders (8 sources) Tremor; Translations: [Tremor, unspecified] Onset: 3 11-03-2023 Episodic Other nutritional; endocrine; and metabolic disorders (4 sources) Body mass index 25-29 - overweight; Translations: [Overweight] Onset: 4 04-18-2024 Episodic Pancreatic disorders (not diabetes) (4 sources) Pancreatitis; Translations: [Acute pancreatitis without necrosis or infection, unspecified] Onset: 4 Resolved: 4 02-11-2024 Episodic Pleurisy; pneumothorax; pulmonary collapse (20 sources) Pleural effusion; Translations: [Pleural effusion, not elsewhere classified] Onset: 4 01-16-2024 Episodic Residual codes; unclassified (1 source) Ill-defined and unknown cause of mortality; Translations: [ILL-DEFINED UNKNOWN CAUSE MORTALITY] Onset: 2 Episodic Residual codes; unclassified (7 sources) Bilateral lower limb edema; Translations: [Localized edema] Onset: 4 01-06-2024 Episodic Residual codes; unclassified (6 sources) Insomnia; Translations: [Insomnia, unspecified] Onset: 4 [...] AUTO DIFFon BASOPHILS ABSOLUTE AUTO 0 [facility] Basophils/100 WBC (Bld) 0.6 % 0.2 - 2.0 % [facility] Eosinophils/100 WBC (Bld) 3.5 % 0.9 - 7.0 % [facility] Erythrocyte distribution width (RBC) [Ratio] 12.3 % 11.0 - 15.0 % [facility] Hematocrit (Bld) [Volume fraction] 47.1 % 42.0 - 54.0 % [facility] Hemoglobin (Bld) [Mass/Vol] 15.4 g/dL 14.0 - 18.0 g/dL [facility] IMMATURE GRANULOCYTES ABS AUTO 0.01 [facility] Immature granulocytes/100 WBC (Bld) 0.2 % 0.0 - 0.5 % [facility] LYMPHOCYTES ABSOLUTE AUTO 1.5 [facility] Lymphocytes/100 WBC (Bld) 31.7 % 20.5 - 60.0 % [facility] MCH (RBC) [Entitic mass] 28.9 pg 25.9 - 34.0 pg [facility] MCHC (RBC) [Mass/Vol] 32.7 g/dL 29.9 - 35.2 g/dL [facility] MCV (RBC) [Entitic vol] 88.4 fL 80.0 - 94.0 fL [facility] MONOCYTES ABSOLUTE AUTO 0.4 [facility] Monocytes/100 WBC (Bld) 8.6 % 1.7 - 12.0 % [facility] NEUTROPHILS ABSOLUTE AUTO 2.7 [facility] Neutrophils/100 WBC (Bld) 55.4 % 43.0 - 75.0 % [facility] Platelet mean volume (Bld) [Entitic vol] 9.7 fL 9.5 - 13.5 fL [facility] TBH EO # 0.2 [facility] PLT 238 [facility] RBC 5.33 [facility] WBC 4.8 [facility] ALL CBC WITH AUTO DIFFon BASOPHILS ABSOLUTE AUTO 0 [facility] Basophils/100 WBC (Bld) 0.6 % 0.2 - 2.0 % [facility] Eosinophils/100 WBC (Bld) 3.2 % 0.9 - 7.0 % [facility] Erythrocyte distribution width (RBC) [Ratio] 12.4 % 11.0 - 15.0 % [facility] Hematocrit (Bld) [Volume fraction] 47 % 42.0 - 54.0 % [facility] Hemoglobin (Bld) [Mass/Vol] 15.8 g/dL 14.0 - 18.0 g/dL [facility] IMMATURE GRANULOCYTES ABS AUTO 0.01 [facility] Immature granulocytes/100 WBC (Bld) 0.2 % 0.0 - 0.5 % [facility] Interpretation and review of laboratory results Abnormal [facility] LYMPHOCYTES ABSOLUTE AUTO 1.1 Low [facility] Lymphocytes/100 WBC (Bld) 22.8 % 20.5 - 60.0 % [facility] MCH (RBC) [Entitic mass] 29.6 pg 25.9 - 34.0 pg [facility] MCHC (RBC) [Mass/Vol] 33.6 g/dL 29.9 - 35.2 g/dL [facility] MCV (RBC) [Entitic vol] 88 fL 80.0 - 94.0 fL [facility] MONOCYTES ABSOLUTE AUTO 0.4 [facility] Monocytes/100 WBC (Bld) 8 % 1.7 - 12.0 % [facility] NEUTROPHILS ABSOLUTE AUTO 3.3 [facility] Neutrophils/100 WBC (Bld) 65.2 % 43.0 - 75.0 % [facility] Platelet mean volume (Bld) [Entitic vol] 9.3 fL Low 9.5 - 13.5 fL [facility] TBH EO # 0.2 [facility] TBH PLT 222 [facility] RBC 5.34 [facility] WBC 5 [facility] ALL CBC WITH AUTO DIFFon BASOPHILS ABSOLUTE AUTO 0 [facility] Basophils/100 WBC (Bld) 0.6 % 0.2 - 2.0 % [facility] Eosinophils/100 WBC (Bld) 2.9 % 0.9 - 7.0 % [facility] Erythrocyte distribution width (RBC) [Ratio] 12.5 % 11.0 - 15.0 % [facility] Hematocrit (Bld) [Volume fraction] 47.1 % 42.0 - 54.0 % [facility] Hemoglobin (Bld) [Mass/Vol] 15.2 g/dL 14.0 - 18.0 g/dL [facility] IMMATURE GRANULOCYTES ABS AUTO 0.01 [facility] Immature granulocytes/100 WBC (Bld) 0.2 % 0.0 - 0.5 % [facility] Interpretation and review of laboratory results Abnormal [facility] LYMPHOCYTES ABSOLUTE AUTO 1.6 [facility] Lymphocytes/100 WBC (Bld) 32.7 % 20.5 - 60.0 % [facility] MCH (RBC) [Entitic mass] 28.5 pg 25.9 - 34.0 pg [facility] MCHC (RBC) [Mass/Vol] 32.3 g/dL 29.9 - 35.2 g/dL [facility] MCV (RBC) [Entitic vol] 88.4 fL 80.0 - 94.0 fL [facility] MONOCYTES ABSOLUTE AUTO 0.4 [facility] Monocytes/100 WBC (Bld) 8.5 % 1.7 - 12.0 % [facility] NEUTROPHILS ABSOLUTE AUTO 2.6 [facility] Neutrophils/100 WBC (Bld) 55.1 % 43.0 - 75.0 % [facility] Platelet mean volume (Bld) [Entitic vol] 9.3 fL Low 9.5 - 13.5 fL [facility] TB EO # 0.1 [facility] TB PLT 225 [facility] RBC 5.33 [facility] WBC 4.8 [facility] 36on 06-01-2024 36 Regarding echo performed on 05/18/2024: MD Cinda Batres MA Please tell him the echo was ok and showed a small residual fluid around the heart. This is significant improvement from before. Follow up as planned. Patient informed and he verbalized understanding. Normal [facility] Office Visiton 05-13-2024 Follow-up visit [id number] George Styles 1970 M Date Provider Department Center 05/13/2024 [facility]UEL CARDONA [facility] Family History Problem Relation Age of Onset Coronary artery disease Mother Coronary artery disease Father Family Status - Relation Status Age at Mother Father Level of Service:32582 DC OFFICE/OUTPATIENT ESTABLISHED LOW MDM 20 MIN Reason for Visit and Comments: Follow-up [642316] - Yearly follow up Normal [facility] B-TYPE NATRIURETIC PEPTIDE ( BRAIN)on 02-26-2024 Interpretation and review of laboratory results Normal [facility] Natriuretic peptide B (Bld) [Mass/Vol] 72 pg/mL 0 - 100 pg/mL [facility] Natriuretic peptide B (Bld) [Mass/Vol] 72 pg/mL Normal 0-100 [facility] Comment on above: Performed By: #### C HM7, HFP, MGO #### [facility] (DEFAULT) [address] [place] [address] CHEM 6 (LYTES, BUN CREA)on 0 02-26-2024 Anion gap [Moles/Vol] 13 mmol/L 7 - 17 mmol/L [facility] Chloride [Moles/Vol] 107 mmol/L 98 - 10 8 mmol/L [facility] CO2 [Moles/Vol] 25 mmol/L 21 - 31 mmol/L [facility] Creatinine [Mass/Vol] 1.23 mg/dL 0.70 - 1.30 mg/dL [facility] eGFR, CKD-EPI, Male 71 - PINF [facility] Comment on above: Reported eGFR is bas ed on the CKD-EPI 2020 equation using creatinine, age, and sex. Potassium [Moles/Vol] 4.2 mmol/L 3.5 - 5.0 mmol/L [facility] Sodium [Moles/Vol] 141 mmol/L 135 - 145 mmol/L [facility] Urea nitrogen [Mass/Vol] 17 mg/dL 7 - 25 mg/dL [facility] Urea nitrogen/Creatinine [Mass ratio] 14 mg/mg [facility] Anion gap [Moles/Vol] 13 mmol/L Normal 7-17 [facility] Comment on above: Performed By: #### C A, CHM7, HFP, IPB, MGO #### [facility] (DEFAULT) [address] [place] [address] Chloride [Moles/Vol] 107 mmol/L Normal 98-108 [facility] Comment on above: Performed By: #### C A, CHM7, HFP, IPB, MGO #### [facility] (DEFAULT) [address] [place] [address] CO2 [Moles/Vol] 25 mmol/L Normal 21-31 [facility] Comment on above: Performed By: #### C A, CHM7, HFP, IPB, MGO #### [facility] (DEFAULT) [address] [place] [address] Creatinine [Mass/Vol] 1.23 mg/dL Normal 0.70-1.30 [facility] Comment on above: Performed By: #### C A, CHM7, HFP, IPB, MGO #### [facility] (DEFAULT) [address] [place] [address] GFR/1.73 sq M.predicted among non-blacks MDRD (S/P/Bld) [Vol rate/Area] 70 mL/min/{1.73_m2} Normal >=60 [facility] Comment on above: Result Comment: Repo rted eGFR is based on the CKD-EPI 2020 equation using creatinine, age, and sex. Performed By: #### C A, CHM7, HFP, IPB, MGO #### [facility] (DEFAULT) [address] [place] [address] Potassium [Moles/Vol] 4.2 mmol/L Normal 3.5-5.0 [facility] Comment on above: Performed By: #### C A, CHM7, HFP, IPB, MGO #### [facility] (DEFAULT) [address] [place] [address] Sodium [Moles/Vol] 141 mmol/L Normal 135-145 [facility] Comment on above: Performed By: #### C A, CHM7, HFP, IPB, MGO #### [facility] (DEFAULT) [address] [place] [address] Urea nitrogen [Mass/Vol] 17 mg/dL Normal 7-25 [facility] Comment on above: Performed By: #### C A, CHM7, HFP, IPB, MGO #### [facility] (DEFAULT) [address] [place] [address] Urea nitrogen/Creatinine [Mass ratio] 14 mg/mg Normal [facility] Comment on above: Performed By: #### C A, CHM7, HFP, IPB, MGO #### [facility] (DEFAULT) [address] [place] [address] CBC,PLATELETSon 01-23-2024 Erythrocyte distribution width (RBC) [Ratio] 14.2 % 10.9 - 14.3 % [facility] Hematocrit (Bld) [Volume fraction] 37.0 % Low 39.6 - 48.8 % [facility] Hemoglobin (Bld) [Mass/Vol] 12.0 g/dL Low 13.4 - 16.8 g/dL [facility] Interpretation and review of laboratory results Abnormal [facility] MCH (RBC) [Entitic mass] 28.6 pg 26.1 - 33.3 pg [facility] MCHC (RBC) [Mass/Vol] 32.4 g/dL 31.9 - 36.5 g/dL [facility] MCV (RBC) [Entitic vol] 88.1 fL 79.0 - 94.5 fL [facility] Platelet mean volume (Bld) [Entitic vol] 10.4 fL 8.7 - 12.3 fL [facility] Platelets (Bld) [#/Vol] 170 10*3/uL 146 - 337 K/uL [facility] RBC (Bld) [#/Vol] 4.20 10*6/uL Low [facility] WBC (Bld) [#/Vol] 3.70 10*3/uL Low 3.73 - 10. 10 K/uL [facility] Hematocrit (Bld) [Volume fraction] 37.0 % Low 39.6-48.8 [facility] Comment on above: Performed By: #### C HM7, HFP, MGO #### [facility] (DEFAULT) [address] [place] [address] 18224 Hemoglobin (Bld) [Mass/Vol] 12.0 g/dL Low 13.4-16.8 [facility] Comment on above: Performed By: #### C HM7, HFP, MGO #### [facility] (DEFAULT) [address] [place] [address] MCV (RBC) [Entitic vol] 88.1 fL Normal 79.0-94.5 [facility] Comment on above: Performed By: #### C HM7, HFP, MGO #### [facility] (DEFAULT) [address] [place] [address] Mean Cell Hgb 28.6 pg Normal 26.1-33.3 [facility] Comment on above: Performed By: #### C HM7, HFP, MGO #### [facility] (DEFAULT) [address] [place] [address] 90674 Mean Cell Hgb Conc 32.4 g/dL Normal 31.9-36.5 [facility] Comment on above: Performed By: #### C HM7, HFP, MGO #### [facility] (DEFAULT) [address] [place] [address] 02125 Platelet mean volume (Bld) [Entitic vol] 10.4 fL Normal 8.7-12.3 [facility] Comment on above: Performed By: #### C HM7, HFP, MGO #### [facility] (DEFAULT) [address] [place] [address] 21750 Platelets (Bld) [#/Vol] 170 10*3/uL Normal 146-337 [facility] Comment on above: Performed By: #### C HM7, HFP, MGO #### [facility] (DEFAULT) [address] [place] [address] 69588 RBC (Bld) [#/Vol] 4.20 10*6/uL Low 4.38-5.83 [facility] Comment on above: Performed By: #### C HM7, HFP, MGO #### [facility] (DEFAULT) [address] [place] [address] 09431 RBC Distribution 14.2 % Normal 10.9-14.3 [facility] Comment on above: Performed By: #### C HM7, HFP, MGO #### [facility] (DEFAULT) [address] [place] [address] 53765 WBC (Bld) [#/Vol] 3.70 10*3/uL Low 3.73-10.10 [facility] Comment on above: Performed By: #### C HM7, HFP, MGO #### [facility] (DEFAULT) [address] [place] [address] 96955 CHEM 7 (LYTES,BUN,CREA,GLUC) on 01-23-2024 Anion gap [Moles/Vol] 14 mmol/L 7 - 17 mmol/L [facility] Chloride [Moles/Vol] 105 mmol/L 98 - 10 8 mmol/L [facility] CO2 [Moles/Vol] 25 mmol/L 21 - 31 mmol/L [facility] Creatinine [Mass/Vol] 1.32 mg/dL High 0.70 - 1.30 mg/dL [facility] eGFR, CKD-EPI, Male 66 - PINF [facility] Comment on above: Reported eGFR is bas ed on the CKD-EPI 2020 equation using creatinine, age, and sex. Glucose [Mass/Vol] 94 mg/dL 70 - 99 mg/dL [facility] Osmolality Calc [Osmolality] 296 [facility] Potassium [Moles/Vol] 3.8 mmol/L 3.5 - 5.0 mmol/L [facility] Sodium [Moles/Vol] 140 mmol/L 135 - 145 mmol/L [facility] Urea nitrogen [Mass/Vol] 23 mg/dL 7 - 25 mg/dL [facility] Urea nitrogen/Creatinine [Mass ratio] 17 mg/mg [facility] Anion gap [Moles/Vol] 14 mmol/L Normal 7-17 [facility] Comment on above: Performed By: #### C HM7, HFP, MGO #### [facility] (DEFAULT) [address] [place] [address] 86328 Chloride [Moles/Vol] 105 mmol/L Normal 98-108 [facility] Comment on above: Performed By: #### C HM7, HFP, MGO #### [facility] (DEFAULT) [address] [place] [address] 89027 CO2 [Moles/Vol] 25 mmol/L Normal 21-31 [facility] Comment on above: Performed By: #### C HM7, HFP, MGO #### [facility] (DEFAULT) [address] [place] [address] 19046 Creatinine [Mass/Vol] 1.32 mg/dL High 0.70-1.30 [facility] Comment on above: Performed By: #### C HMJessica, HFP, MGO #### [facility] (DEFAULT) [address] [place] [address] 52275 GFR/1.73 sq M.predicted among non-blacks MDRD (S/P/Bld) [Vol rate/Area] 65 mL/min/{1.73_m2} Normal >=60 [facility] Comment on above: Result Comment: Repo rted eGFR is based on the CKD-EPI 2020 equation using creatinine, age, and sex. Performed By: #### Chinedu MEDLEY, HFP, MGO #### [facility] (DEFAULT) [address] [place] [address] 59536 Glucose [Mass/Vol] 94 mg/dL Normal 70-99 [facility] Comment on above: Performed By: #### C JASMYNE, HFP, MGO #### [facility] (DEFAULT) [address] [place] [address] 98154 Osmolality [Osmolality] 296 mosm/kg Normal 278-305 [facility] Comment on above: Performed By: #### C HMJessica, HFP, MGO #### [facility] (DEFAULT) [address] [place] [address] 51137 Potassium [Moles/Vol] 3.8 mmol/L Normal 3.5-5.0 [facility] Comment on above: Performed By: #### C HM7, HFP, MGO #### [facility] (DEFAULT) [address] [place] [address] 18776 Sodium [Moles/Vol] 140 mmol/L Normal 135-145 [facility] Comment on above: Performed By: #### Chinedu HM7, HFP, MGO #### [facility] (DEFAULT) [address] [place] [address] 29147 Urea nitrogen [Mass/Vol] 23 mg/dL Normal 7-25 [facility] Comment on above: Performed By: #### C HM7, HFP, MGO #### [facility] (DEFAULT) [address] [place] [address] Urea nitrogen/Creatinine [Mass ratio] 17 mg/mg Normal [facility] Comment on above: Performed By: #### C HM7, HFP, MGO #### [facility] (DEFAULT) [address] [place] [address] GLUCOSE POCon 01-23-2024 Glucose [Mass/Vol] 88 mg/dL 70 - 99 mg/dL [facility] POC Sample Type CAPBL [facility] Test performed at address of the patient encounter. [facility] Glucose [Mass/Vol] 191 mg/dL High 70 - 99 mg/dL [facility] Interpretation and review of laboratory results Abnormal [facility] POC Sample Type CAPBL [facility] Test performed at address of the patient encounter. [facility] HEPATIC FUNCTION PANELon Albumin [Mass/Vol] 3.9 g/dL 3.5 - 5.0 g/dL [facility] ALP [Catalytic activity/Vol] 83 U/L 32 - 126 U/L [facility] ALT [Catalytic activity/Vol] 9 U/L Low 10 - 52 U/L [facility] AST [Catalytic activity/Vol] 17 U/L 10 - 39 U/L [facility] Bilirubin [Mass/Vol] 1.6 mg/dL High NINF - 1.5 mg/dL [facility] Bilirubin.direct [Mass/Vol] 0.4 mg/dL High NINF - 0.3 mg/dL [facility] Protein [Mass/Vol] 6.6 g/dL 6.4 - 8.3 g/dL [facility] Albumin [Mass/Vol] 3.9 g/dL Normal 3.5-5.0 [facility] Comment on above: Performed By: #### C HM7, HFP, MGO #### [facility] (DEFAULT) [address] [place] [address] 23588 ALP [Catalytic activity/Vol] 83 U/L Normal 32-126 [facility] Comment on above: Performed By: #### C HM7, HFP, MGO #### [facility] (DEFAULT) [address] [place] [address] 50292 ALT [Catalytic activity/Vol] 9 U/L Low 10-52 [facility] Comment on above: Performed By: #### C HM7, HFP, MGO #### [facility] (DEFAULT) [address] [place] [address] 46717 AST [Catalytic activity/Vol] 17 U/L Normal 10-39 [facility] Comment on above: Performed By: #### Chinedu HM7, HFP, MGO #### [facility] (DEFAULT) [address] [place] [address] 64078 Bilirubin [Mass/Vol] 1.6 mg/dL High <1.5 [facility] Comment on above: Performed By: #### Chinedu HM7, HFP, MGO #### [facility] (DEFAULT) [address] [place] [address] 14207 Bilirubin.indirect [Mass/Vol] 0.4 mg/dL High <0.3 [facility] Comment on above: Performed By: #### Chinedu HM7, HFP, MGO #### [facility] (DEFAULT) [address] [place] [address] 74489 Protein [Mass/Vol] 6.6 g/dL Normal 6.4-8.3 [facility] Comment on above: Performed By: #### Chinedu HM7, HFP, MGO #### [facility] (DEFAULT) [address] [place] [address] 00580 ITRACONAZOLE LEVELon 024 Hydroxyitraconazole [Mass/Vol] 7.6 mcg/mL [facility] Comment on above: REFERENCE VALUE No therapeutic range established; activity and serum concentration are similar to parent drug. ADDITIONAL INFORMATION This test was developed and its performance characteristics determined by [facility] in a manner consistent with CLIA requirements. This test has not been cleared or approved by the U.S. Food and Drug Administration. Test Performed by: [facility] [address] [place] [address] Research Assistant Professor: Rosendo Bose M.D. Ph.D.; CLIA# [id number] Itraconazole [Mass/Vol] 6.0 mcg/mL [facility] Comment on above: REFERENCE VALUE >0.5 (localized infection), >1.0 (systemic infection) [facility] MAGNESIUMon 01-23-2024 Interpretation and review of laboratory results Normal [facility] Magnesium [Mass/Vol] 1.8 mg/dL 1.6 - 2 .6 mg/dL [facility] Magnesium [Mass/Vol] 1.8 mg/dL Normal 1.6-2.6 [facility] Comment on above: Performed By: #### C 7, [facility], MGO #### [facility] (DEFAULT) [address] [place] [address] No Panel Informationon 01-23 Interpretation and review of laboratory results Abnormal [facility] TACROLIMUS LEVEL, TROUGH (DC E DRUG LEVEL)on 01-23-2024 Interpretation and review of laboratory results Normal [facility] Tacrolimus (Bld) [Mass/Vol] 7.0 ng/mL Bone Marrow Transplant: 4.0-12.0, Therapeutic: 5.0-15.0 [facility] Method performed is a chemiluminescent microparticle immunoasssay on the [employer] Seam[employer] i2000. The range is based on experience at [facility] and users should be aware that target concentrations vary widely depending on concomitant therapy, time post-transplant, and desired degree of immunosuppression. [facility] Tacrolimus, Trough 7.0 ng/mL Normal Bone Susana ow Transplant: 4.0-12.0, Therapeutic: 5.0-15.0 [facility] Comment on above: Order Comment: Pleas e draw at specified interval PRIOR to dose. Do not hold dose to wait for level. Specimens batched twice per day, (M-F) and once per day weekendsMethod performed is a chemiluminescent microparticle immunoasssay on the [employer] Seamstress i2000.The range is based on experience at [facility] and users should be aware that target concentrations vary widely depending on concomitant therapy, time post-transplant, and desired degree of immunosuppression. Performed By: #### C A, CHM7, HFP, IPB, MGO #### [facility] (DEFAULT) [address] [place] [address] CARDIAC RHYTHM (SCANNED)on 0 01-22-2024 [facility] CBC,PLATELETSon 01-22-2024 Erythrocyte distribution width (RBC) [Ratio] 14.1 % 10.9 - 14.3 % [facility] Hematocrit (Bld) [Volume fraction] 41.5 % 39.6 - 48.8 % [facility] Hemoglobin (Bld) [Mass/Vol] 13.3 g/dL Low 13.4 - 16.8 g/dL [facility] Interpretation and review of laboratory results Abnormal [facility] MCH (RBC) [Entitic mass] 27.8 pg 26.1 - 33.3 pg [facility] MCHC (RBC) [Mass/Vol] 32.0 g/dL 31.9 - 36.5 g/dL [facility] MCV (RBC) [Entitic vol] 86.8 fL 79.0 - 94.5 fL [facility] Platelet mean volume (Bld) [Entitic vol] 10.5 fL 8.7 - 12.3 fL [facility] Platelets (Bld) [#/Vol] 186 10*3/uL 146 - 337 K/uL [facility] RBC (Bld) [#/Vol] 4.78 10*6/uL [facility] WBC (Bld) [#/Vol] 3.74 10*3/uL 3.73 - 10. 10 K/uL [facility] Hematocrit (Bld) [Volume fraction] 41.5 % Normal 39.6-48.8 [facility] Comment on above: Performed By: #### C HM7, HFP, MGO #### [facility] (DEFAULT) [address] [place] [address] 34321 Hemoglobin (Bld) [Mass/Vol] 13.3 g/dL Low 13.4-16.8 [facility] Comment on above: Performed By: #### Chinedu HM7, HFP, MGO #### [facility] (DEFAULT) [address] [address] MCV (RBC) [Entitic vol] 86.8 fL Normal 79.0-94.5 [facility] Comment on above: Performed By: #### Chinedu HM7, HFP, MGO #### [facility] (DEFAULT) [address] [place] [address] 51138 Mean Cell Hgb 27.8 pg Normal 26.1-33.3 [facility] Comment on above: Performed By: #### Chinedu HM7, HFP, MGO #### [facility] (DEFAULT) [address] [place] [address] 25268 Mean Cell Hgb Conc 32.0 g/dL Normal 31.9-36.5 [facility] Comment on above: Performed By: #### C HM7, HFP, MGO #### [facility] (DEFAULT) [address] [address] Platelet mean volume (Bld) [Entitic vol] 10.5 fL Normal 8.7-12.3 [facility] Comment on above: Performed By: #### C HM7, HFP, MGO #### [facility] (DEFAULT) [address] [place] [address] 44232 Platelets (Bld) [#/Vol] 186 10*3/uL Normal 146-337 [facility] Comment on above: Performed By: #### C HM7, HFP, MGO #### [facility] (DEFAULT) [address] [place] [address] 61450 RBC (Bld) [#/Vol] 4.78 10*6/uL Normal 4.38-5.83 [facility] Comment on above: Performed By: #### C HM7, HFP, MGO #### [facility] (DEFAULT) [address] [place] [address] 02936 RBC Distribution 14.1 % Normal 10.9-14.3 [facility] Comment on above: Performed By: #### Chinedu HM7, HFP, MGO #### [facility] (DEFAULT) [address] [place] [address] 30268 WBC (Bld) [#/Vol] 3.74 10*3/uL Normal 3.73-10.10 [facility] Comment on above: Performed By: #### Chinedu HM7, HFP, MGO #### [facility] (DEFAULT) [address] [place] [address] 71134 CHEM 7 (LYTES,BUN,CREA,GLUC) on 01-22-2024 Anion gap [Moles/Vol] 13 mmol/L 7 - 17 mmol/L [facility] Chloride [Moles/Vol] 109 mmol/L High 98 - 10 8 mmol/L [facility] CO2 [Moles/Vol] 23 mmol/L 21 - 31 mmol/L [facility] Creatinine [Mass/Vol] 1.10 mg/dL 0.70 - 1.30 mg/dL [facility] eGFR, CKD-EPI, Male 82 - PINF [facility] Comment on above: Reported eGFR is bas ed on the CKD-EPI 2020 equation using creatinine, age, and sex. Glucose [Mass/Vol] 84 mg/dL 70 - 99 mg/dL [facility] Interpretation and review of laboratory results Abnormal [facility] Osmolality Calc [Osmolality] 295 [facility] Potassium [Moles/Vol] 4.0 mmol/L 3.5 - 5.0 mmol/L [facility] Sodium [Moles/Vol] 141 mmol/L 135 - 145 mmol/L [facility] Urea nitrogen [Mass/Vol] 16 mg/dL 7 - 25 mg/dL [facility] Urea nitrogen/Creatinine [Mass ratio] 15 mg/mg [facility] Anion gap [Moles/Vol] 13 mmol/L Normal 7-17 [facility] Comment on above: Performed By: #### C HM7, HFP, MGO #### [facility] (DEFAULT) [address] [place] [address] 57424 Chloride [Moles/Vol] 109 mmol/L High 98-108 [facility] Comment on above: Performed By: #### Chinedu HM7, HFP, MGO #### [facility] (DEFAULT) [address] [place] [address] 86028 CO2 [Moles/Vol] 23 mmol/L Normal 21-31 [facility] Comment on above: Performed By: #### Chinedu HM7, HFP, MGO #### [facility] (DEFAULT) [address] [place] [address] 77526 Creatinine [Mass/Vol] 1.10 mg/dL Normal 0.70-1.30 [facility] Comment on above: Performed By: #### C HM7, HFP, MGO #### [facility] (DEFAULT) [address] [place] [address] 39362 GFR/1.73 sq M.predicted among non-blacks MDRD (S/P/Bld) [Vol rate/Area] 81 mL/min/{1.73_m2} Normal >=60 [facility] Comment on above: Result Comment: Repo rted eGFR is based on the CKD-EPI 2020 equation using creatinine, age, and sex. Performed By: #### C HM7, HFP, MGO #### [facility] (DEFAULT) [address] [place] [address] 36809 Glucose [Mass/Vol] 84 mg/dL Normal 70-99 [facility] Comment on above: Performed By: #### C HM7, HFP, MGO #### [facility] (DEFAULT) [address] [place] [address] 37284 Osmolality [Osmolality] 295 mosm/kg Normal 278-305 [facility] Comment on above: Performed By: #### C HM7, HFP, MGO #### [facility] (DEFAULT) [address] [place] [address] 85074 Potassium [Moles/Vol] 4.0 mmol/L Normal 3.5-5.0 [facility] Comment on above: Performed By: #### C HM7, HFP, MGO #### [facility] (DEFAULT) [address] [place] [address] 52993 Sodium [Moles/Vol] 141 mmol/L Normal 135-145 [facility] Comment on above: Performed By: #### C HM7, HFP, MGO #### [facility] (DEFAULT) [address] [place] [address] 89418 Urea nitrogen [Mass/Vol] 16 mg/dL Normal 7-25 [facility] Comment on above: Performed By: #### C HM7, HFP, MGO #### [facility] (DEFAULT) [address] [place] [address] 46390 Urea nitrogen/Creatinine [Mass ratio] 15 mg/mg Normal [facility] Comment on above: Performed By: #### C HM7, HFP, MGO #### [facility] (DEFAULT) [address] [place] [address] 77006 MAGNESIUMon 01-22-2024 Interpretation and review of laboratory results Normal [facility] Magnesium [Mass/Vol] 2.0 mg/dL 1.6 - 2 .6 mg/dL [facility] Magnesium [Mass/Vol] 2.0 mg/dL Normal 1.6-2.6 [facility] Comment on above: Performed By: #### M TJ BLOOM7 #### [facility] (DEFAULT) [address] [place] [address] 39085 No Panel Informationon 01-22 [facility] PT,INR,PTTon 01-22-2024 aPTT Coag (PPP) [Time] 29.2 s [facility] INR Coag (Bld) [Relative time] 1.1 {INR} 0.9 - 1.1 [facility] Interpretation and review of laboratory results Abnormal [facility] PT Coag (PPP) [Time] 14.3 s High [facility] aPTT Coag (Bld) [Time] 29.2 s Normal 24.0-34.[address] [facility] Comment on above: Performed By: #### P TPTT #### [facility] (DEFAULT) [address] [place] [address] 05637 INR Coag (PPP) [Relative time] 1.1 {INR} Normal 0.9-1.1 [facility] Comment on above: Performed By: #### P TPTT #### [facility] (DEFAULT) [address] [place] [address] 44864 PT Coag (PPP) [Time] 14.3 s High 11.9-14.2 [facility] Comment on above: Performed By: #### P TPTT #### [facility] (DEFAULT) [address] [place] [address] 52774 TACROLIMUS LEVEL, TROUGH (DC E DRUG LEVEL)Ordered By: Sheree Jensen on 01-22-2024 Interpretation and review of laboratory results Normal [facility] Tacrolimus (Bld) [Mass/Vol] 7.9 ng/mL Bone Marrow Transplant: 4.0-12.0, Therapeutic: 5.0-15.0 [facility] Method performed is a chemiluminescent microparticle immunoasssay on the [employer]am[employer] i2000. The range is based on experience at [facility] and users should be aware that target concentrations vary widely depending on concomitant therapy, time post-transplant, and desired degree of immunosuppression. [facility] TACROLIMUS LEVEL, TROUGH (DC E DRUG LEVEL)on 01-22-2024 Tacrolimus, Trough 7.9 ng/mL Normal Bone Susana ow Transplant: 4.0-12.0, Therapeutic: 5.0-15.0 [facility] Comment on above: Order Comment: Pleas e draw at specified interval PRIOR to dose. Do not hold dose to wait for level. Specimens batched twice per day, (M-F) and once per day weekendsMethod performed is a chemiluminescent microparticle immunoasssay on the [employer] Seam[employer] i2000.The range is based on experience at [facility] and users should be aware that target concentrations vary widely depending on concomitant therapy, time post-transplant, and desired degree of immunosuppression. Performed By: #### C A, CHM7, HFP, IPB, MGO #### [facility] (DEFAULT) [address] [place] [address] TYPE AND SCREENon 01-22-2024 ABO/RH(D) TYPE Positive [facility] ABO/RH(D) TYPE Positive Normal [facility] Comment on above: Performed By: #### C HM7, HFP, MGO #### [facility] (DEFAULT) [address] [place] [address] [place] Unspecified body regionOr dered By: Unassigned Pacs on 01-22-2024 [facility] Work Phone: [place] Unspecified body regionon 01-22-2024 Radiology Study observation (narrative) [facility] CBC,PLATELETSon 01-21-2024 Erythrocyte distribution width (RBC) [Ratio] 14.0 % 10.9 - 14.3 % [facility] Hematocrit (Bld) [Volume fraction] 39.4 % Low 39.6 - 48.8 % [facility] Hemoglobin (Bld) [Mass/Vol] 12.7 g/dL Low 13.4 - 16.8 g/dL [facility] Interpretation and review of laboratory results Abnormal [facility] MCH (RBC) [Entitic mass] 28.0 pg 26.1 - 33.3 pg [facility] MCHC (RBC) [Mass/Vol] 32.2 g/dL 31.9 - 36.5 g/dL [facility] MCV (RBC) [Entitic vol] 87.0 fL 79.0 - 94.5 fL [facility] Platelet mean volume (Bld) [Entitic vol] 10.2 fL 8.7 - 12.3 fL [facility] Platelets (Bld) [#/Vol] 157 10*3/uL 146 - 337 K/uL [facility] RBC (Bld) [#/Vol] 4.53 10*6/uL [facility] WBC (Bld) [#/Vol] 3.42 10*3/uL Low 3.73 - 10. 10 K/uL [facility] Hematocrit (Bld) [Volume fraction] 39.4 % Low 39.6-48.8 [facility] Comment on above: Performed By: #### C A, CHM7, HFP, IPB, MGO #### [facility] (DEFAULT) [address] [place] [address] 70577 Hemoglobin (Bld) [Mass/Vol] 12.7 g/dL Low 13.4-16.8 [facility] Comment on above: Performed By: #### C A, CHM7, HFP, IPB, MGO #### [facility] (DEFAULT) [address] [place] [address] 66438 MCV (RBC) [Entitic vol] 87.0 fL Normal 79.0-94.5 [facility] Comment on above: Performed By: #### C A, CHM7, HFP, IPB, MGO #### [facility] (DEFAULT) [address] [place] [address] 97452 Mean Cell Hgb 28.0 pg Normal 26.1-33.3 [facility] Comment on above: Performed By: #### C Tray, CHM7, HFP, IPB, MGO #### [facility] (DEFAULT) [address] [place] [address] 01613 Mean Cell Hgb Conc 32.2 g/dL Normal 31.9-36.5 [facility] Comment on above: Performed By: #### C A, CHM7, HFP, IPB, MGO #### [facility] (DEFAULT) [address] [place] [address] 41377 Platelet mean volume (Bld) [Entitic vol] 10.2 fL Normal 8.7-12.3 [facility] Comment on above: Performed By: #### Chinedu A, CHM7, HFP, IPB, MGO #### [facility] (DEFAULT) [address] [place] [address] 11728 Platelets (Bld) [#/Vol] 157 10*3/uL Normal 146-337 [facility] Comment on above: Performed By: #### Chinedu Feliz, CHM7, HFP, IPB, MGO #### [facility] (DEFAULT) [address] [place] [address] 22490 RBC (Bld) [#/Vol] 4.53 10*6/uL Normal 4.38-5.83 [facility] Comment on above: Performed By: #### C Tray, CHM7, HFP, IPB, MGO #### [facility] (DEFAULT) [address] [place] [address] 81820 RBC Distribution 14.0 % Normal 10.9-14.3 [facility] Comment on above: Performed By: #### C A, CHM7, HFP, IPB, MGO #### [facility] (DEFAULT) [address] [place] [address] 14585 WBC (Bld) [#/Vol] 3.42 10*3/uL Low 3.73-10.10 [facility] Comment on above: Performed By: #### C A, CHM7, HFP, IPB, MGO #### [facility] (DEFAULT) [address] [place] [address] CHEM 7 (LYTES,BUN,CREA,GLUC) on 01-21-2024 Anion gap [Moles/Vol] 12 mmol/L 7 - 17 mmol/L [facility] Chloride [Moles/Vol] 107 mmol/L 98 - 10 8 mmol/L [facility] CO2 [Moles/Vol] 26 mmol/L 21 - 31 mmol/L [facility] Creatinine [Mass/Vol] 1.11 mg/dL 0.70 - 1.30 mg/dL [facility] eGFR, CKD-EPI, Male 80 - PINF [facility] Comment on above: Reported eGFR is bas ed on the CKD-EPI 2020 equation using creatinine, age, and sex. Glucose [Mass/Vol] 93 mg/dL 70 - 99 mg/dL [facility] Osmolality Calc [Osmolality] 295 [facility] Potassium [Moles/Vol] 3.9 mmol/L 3.5 - 5.0 mmol/L [facility] Sodium [Moles/Vol] 141 mmol/L 135 - 145 mmol/L [facility] Urea nitrogen [Mass/Vol] 15 mg/dL 7 - 25 mg/dL [facility] Urea nitrogen/Creatinine [Mass ratio] 14 mg/mg [facility] Anion gap [Moles/Vol] 12 mmol/L Normal 7-17 [facility] Comment on above: Performed By: #### C HM7, HFP, MGO #### [facility] (DEFAULT) [address] [place] [address] Chloride [Moles/Vol] 107 mmol/L Normal 98-108 [facility] Comment on above: Performed By: #### C HM7, HFP, MGO #### [facility] (DEFAULT) [address] [place] [address] CO2 [Moles/Vol] 26 mmol/L Normal 21-31 [facility] Comment on above: Performed By: #### C HM7, HFP, MGO #### [facility] (DEFAULT) [address] [place] [address] 14191 Creatinine [Mass/Vol] 1.11 mg/dL Normal 0.70-1.30 [facility] Comment on above: Performed By: #### Chinedu HM7, HFP, MGO #### [facility] (DEFAULT) [address] [place] [address] 72650 GFR/1.73 sq M.predicted among non-blacks MDRD (S/P/Bld) [Vol rate/Area] 80 mL/min/{1.73_m2} Normal >=60 [facility] Comment on above: Result Comment: Repo rted eGFR is based on the CKD-EPI 2020 equation using creatinine, age, and sex. Performed By: #### C HMJessica, HFP, MGO #### [facility] (DEFAULT) [address] [place] [address] 57261 Glucose [Mass/Vol] 93 mg/dL Normal 70-99 [facility] Comment on above: Performed By: #### Chinedu HMJessica, HFP, MGO #### [facility] (DEFAULT) [address] [place] [address] 45508 Osmolality [Osmolality] 295 mosm/kg Normal 278-305 [facility] Comment on above: Performed By: #### C HMJessica, HFP, MGO #### [facility] (DEFAULT) [address] [place] [address] 62900 Potassium [Moles/Vol] 3.9 mmol/L Normal 3.5-5.0 [facility] Comment on above: Performed By: #### Chinedu HM7, HFP, MGO #### [facility] (DEFAULT) [address] [place] [address] 09527 Sodium [Moles/Vol] 141 mmol/L Normal 135-145 [facility] Comment on above: Performed By: #### Chinedu HM7, HFP, MGO #### [facility] (DEFAULT) [address] [place] [address] Urea nitrogen [Mass/Vol] 15 mg/dL Normal - [facility] Comment on above: Performed By: #### C HM7, HFP, MGO #### [facility] (DEFAULT) [address] [place] [address] Urea nitrogen/Creatinine [Mass ratio] 14 mg/mg Normal [facility] Comment on above: Performed By: #### C HM7, HFP, MGO #### [facility] (DEFAULT) [address] [place] [address] 02100 Cardiac catheterization stud yOrdered By: Kelvin Donohue on 01-21-2024 Body surface area Derived from formula 2.08 m2 [facility] Work Phone: [facility] Work Phone: Cardiac catheterization [...] with fistula occlusion Kelvin Donohue MD, MPH Financial Report Service Sales Agent of Internal Medicine. Section of Advanced Heart Failure and Transplantation Division of Cardiovascular Diseases [facility] [email or web address] INVASIVE CARDIOVASCULAR PROC EDUREon 01-21-2024 INVASIVE [...] with fistula occlusion Kelvin Donohue MD, MPH Financial Report Service Sales Agent of Internal Medicine. Section of Advanced Heart Failure and Transplantation Division of Cardiovascular Diseases [facility] [email or web address] Table formatting from the original result was not included. Images from the original result were not included. George Styles Invasive Cardiology Cath Procedure Ordering Physician: KELVIN PACHECO Order #: [id number] Study Date: 01/20/2024 Patient Information Name MRN Description George Styles [id number] 53 y.o. male Location Name Address [place] [id number] Physicians Panel Physicians Referring Physician Case Authorizing Physician LU Costello (Primary) Zuly Bruno, ROB Pacheco MD, MBBS Procedures RIGHT HEART CATHETERIZATION Indications Pre-transplant evaluation [...] with fistula occlusion Kelvin Donohue MD, MPH Financial Report Service Sales Agent of Internal Medicine. Section of Advanced Heart Failure and Transplantation Division of Cardiovascular Diseases [facility] [email or web address] Medical History Diagnosis Date Comment Source Acute renal failure CAD (coronary artery disease) Cirrhosis Dialysis patient T, Th, Sa- Started 06/01/2018 End stage renal disease 06/01/2018 Essential hypertension, benign Hepatic encephalopathy History of blood transfusion Liver cirrhosis Procedure The risks and alternatives of the procedure and sedation were explained. Informed consent was obtained. The patient was brought to the laboratory sampler and placed on the table. The planned puncture sites were prepped and draped in the usual sterile fashion. Fluoro Dose Fluoro Dose: 0.2 Gy-cm^2 Complications Complications documented before study signed (01/21/2024 4:05 PM) No complications were associated with this study. Documented by LU Costello - 01/20/2024 11:09 AM Cardiac Recreation Therapist Attending Physician Statement and Signature I have [...] Blood O (more content not included)... Normal [facility] MAGNESIUMon 01-21-2024 Interpretation and review of laboratory results Abnormal [facility] Magnesium [Mass/Vol] 1.5 mg/dL Low 1.6 - 2 .6 mg/dL [facility] Magnesium [Mass/Vol] 1.5 mg/dL Low 1.6-2.6 [facility] Comment on above: Performed By: #### C HM7, HFP, MGO #### [facility] (DEFAULT) [address] [place] [address] No Panel Informationon 01-21 [facility] TACROLIMUS LEVEL, TROUGH (DC E DRUG LEVEL)on 01-21-2024 Interpretation and review of laboratory results Normal [facility] Tacrolimus (Bld) [Mass/Vol] 7.2 ng/mL Bone Marrow Transplant: 4.0-12.0, Therapeutic: 5.0-15.0 [facility] Method performed is a chemiluminescent microparticle immunoasssay on the [employer] i2000. The range is based on experience at [facility] and users should be aware that target concentrations vary widely depending on concomitant therapy, time post-transplant, and desired degree of immunosuppression. [facility] Tacrolimus, Trough 7.2 ng/mL Normal Bone Susana ow Transplant: 4.0-12.0, Therapeutic: 5.0-15.0 [facility] Comment on above: Order Comment: Samrajoan gregory draw at specified interval PRIOR to dose. Do not hold dose to wait for level. Specimens batched twice per day, (M-F) and once per day weekendsMethod performed is a chemiluminescent microparticle immunoasssay on the [employer]ter[employer] i2000.The range is based on experience at [facility] and users should be aware that target concentrations vary widely depending on concomitant therapy, time post-transplant, and desired degree of immunosuppression. Performed By: #### C A, CHM7, HFP, IPB, MGO #### [facility] (DEFAULT) [address] [place] [address] CBC,PLATELETSon 01-20-2024 Erythrocyte distribution width (RBC) [Ratio] 13.8 % 10.9 - 14.3 % [facility] Hematocrit (Bld) [Volume fraction] 38.9 % Low 39.6 - 48.8 % [facility] Hemoglobin (Bld) [Mass/Vol] 12.5 g/dL Low 13.4 - 16.8 g/dL [facility] Interpretation and review of laboratory results Abnormal [facility] MCH (RBC) [Entitic mass] 28.0 pg 26.1 - 33.3 pg [facility] MCHC (RBC) [Mass/Vol] 32.1 g/dL 31.9 - 36.5 g/dL [facility] MCV (RBC) [Entitic vol] 87.2 fL 79.0 - 94.5 fL [facility] Platelet mean volume (Bld) [Entitic vol] 10.2 fL 8.7 - 12.3 fL [facility] Platelets (Bld) [#/Vol] 166 10*3/uL 146 - 337 K/uL [facility] RBC (Bld) [#/Vol] 4.46 10*6/uL [facility] WBC (Bld) [#/Vol] 3.79 10*3/uL 3.73 - 10. 10 K/uL [facility] Hematocrit (Bld) [Volume fraction] 38.9 % Low 39.6-48.8 [facility] Comment on above: Performed By: #### C A, CHM7, HFP, IPB, MGO #### [facility] (DEFAULT) [address] [place] [address] 52098 Hemoglobin (Bld) [Mass/Vol] 12.5 g/dL Low 13.4-16.8 [facility] Comment on above: Performed By: #### C A, CHM7, HFP, IPB, MGO #### [facility] (DEFAULT) [address] [place] [address] 04363 MCV (RBC) [Entitic vol] 87.2 fL Normal 79.0-94.5 [facility] Comment on above: Performed By: #### C A, CHM7, HFP, IPB, MGO #### [facility] (DEFAULT) [address] [place] [address] 51912 Mean Cell Hgb 28.0 pg Normal 26.1-33.3 [facility] Comment on above: Performed By: #### C A, CHM7, HFP, IPB, MGO #### [facility] (DEFAULT) [address] [place] [address] 53127 Mean Cell Hgb Conc 32.1 g/dL Normal 31.9-36.5 [facility] Comment on above: Performed By: #### C A, CHM7, HFP, IPB, MGO #### [facility] (DEFAULT) [address] [place] [address] 82247 Platelet mean volume (Bld) [Entitic vol] 10.2 fL Normal 8.7-12.3 [facility] Comment on above: Performed By: #### C A, CHM7, HFP, IPB, MGO #### [facility] (DEFAULT) [address] [place] [address] 42280 Platelets (Bld) [#/Vol] 166 10*3/uL Normal 146-337 [facility] Comment on above: Performed By: #### C A, CHM7, HFP, IPB, MGO #### [facility] (DEFAULT) [address] [place] [address] RBC (Bld) [#/Vol] 4.46 10*6/uL Normal 4.38-5.83 [facility] Comment on above: Performed By: #### C A, CHM7, HFP, IPB, MGO #### [facility] (DEFAULT) [address] [place] [address] RBC Distribution 13.8 % Normal 10.9-14.3 [facility] Comment on above: Performed By: #### C A, CHM7, HFP, IPB, MGO #### [facility] (DEFAULT) [address] [place] [address] 45078 WBC (Bld) [#/Vol] 3.79 10*3/uL Normal 3.73-10.10 [facility] Comment on above: Performed By: #### C A, CHM7, HFP, IPB, MGO #### [facility] (DEFAULT) [address] [place] [address] 61798 CHEM 7 (LYTES,BUN,CREA,GLUC) on 01-20-2024 Anion gap [Moles/Vol] 12 mmol/L 7 - 17 mmol/L [facility] Chloride [Moles/Vol] 105 mmol/L 98 - 10 8 mmol/L [facility] CO2 [Moles/Vol] 28 mmol/L 21 - 31 mmol/L [facility] Creatinine [Mass/Vol] 1.12 mg/dL 0.70 - 1.30 mg/dL [facility] eGFR, CKD-EPI, Male 79 - PINF [facility] Comment on above: Reported eGFR is bas ed on the CKD-EPI 2020 equation using creatinine, age, and sex. Glucose [Mass/Vol] 88 mg/dL 70 - 99 mg/dL [facility] Osmolality Calc [Osmolality] 294 [facility] Potassium [Moles/Vol] 3.8 mmol/L 3.5 - 5.0 mmol/L [facility] Sodium [Moles/Vol] 141 mmol/L 135 - 145 mmol/L [facility] Urea nitrogen [Mass/Vol] 15 mg/dL 7 - 25 mg/dL [facility] Urea nitrogen/Creatinine [Mass ratio] 13 mg/mg [facility] Anion gap [Moles/Vol] 12 mmol/L Normal 7-17 [facility] Comment on above: Performed By: #### Chinedu MEDLEY, TAVO, MGO #### [facility] (DEFAULT) [address] [place] [address] 68392 Chloride [Moles/Vol] 105 mmol/L Normal 98-108 [facility] Comment on above: Performed By: #### Chinedu MEDLEY, HFP, MGO #### [facility] (DEFAULT) [address] [place] [address] 91996 CO2 [Moles/Vol] 28 mmol/L Normal 21-31 [facility] Comment on above: Performed By: #### Chinedu MEDLEY, HFP, MGO #### [facility] (DEFAULT) [address] [place] [address] 42104 Creatinine [Mass/Vol] 1.12 mg/dL Normal 0.70-1.30 [facility] Comment on above: Performed By: #### Chinedu HMJessica, HFP, MGO #### [facility] (DEFAULT) [address] [place] [address] 14666 GFR/1.73 sq M.predicted among non-blacks MDRD (S/P/Bld) [Vol rate/Area] 79 mL/min/{1.73_m2} Normal >=60 [facility] Comment on above: Result Comment: Repo rted eGFR is based on the CKD-EPI 2020 equation using creatinine, age, and sex. Performed By: #### Chinedu HMJessica, HFP, MGO #### [facility] (DEFAULT) [address] [place] [address] 93414 Glucose [Mass/Vol] 88 mg/dL Normal 70-99 [facility] Comment on above: Performed By: #### C HM7, HFP, MGO #### [facility] (DEFAULT) [address] [place] [address] 36487 Osmolality [Osmolality] 294 mosm/kg Normal 278-305 [facility] Comment on above: Performed By: #### C HM7, HFP, MGO #### [facility] (DEFAULT) [address] [place] [address] 35675 Potassium [Moles/Vol] 3.8 mmol/L Normal 3.5-5.0 [facility] Comment on above: Performed By: #### C HM7, HFP, MGO #### [facility] (DEFAULT) [address] [place] [address] 72814 Sodium [Moles/Vol] 141 mmol/L Normal 135-145 [facility] Comment on above: Performed By: #### C HM7, HFP, MGO #### [facility] (DEFAULT) [address] [place] [address] 61360 Urea nitrogen [Mass/Vol] 15 mg/dL Normal 7-25 [facility] Comment on above: Performed By: #### C HM7, HFP, MGO #### [facility] (DEFAULT) [address] [place] [address] 85247 Urea nitrogen/Creatinine [Mass ratio] 13 mg/mg Normal [facility] Comment on above: Performed By: #### C HM7, HFP, MGO #### [facility] (DEFAULT) [address] [place] [address] 26048 Cardiac catheterization stud yon 01-20-2024 [facility] Radiology Study observation (narrative) [facility] Radiology Study observation (narrative) [facility] EBV BY PCR, QUANTITATIVE,BLO ODOrdered By: Charlotte Jensen on 01-20-2024 EBV DNA ESTELITA+probe (Unsp spec) [#/Vol] NINF [facility] Interpretation and review of laboratory results Normal [facility] This test was performed using a real time PCR assay. The dynamic range for this assay is 1000-5,000,000 IU/mL. A result <1000 IU/mL does not rule out the presence of EBV DNA in quantities below the sensitivity of this assay. This test was developed and its performance characteristics determined by [facility]. It has not been cleared or approved by the FDA. The laboratory is regulated under CLIA as qualified to perform high-complexity testing. This test is used for clinical purposes. It should not be regarded as investigational or for research. [facility] HEPATIC FUNCTION PANELon Albumin [Mass/Vol] 3.7 g/dL 3.5 - 5.0 g/dL [facility] ALP [Catalytic activity/Vol] 73 U/L 32 - 126 U/L [facility] ALT [Catalytic activity/Vol] 12 U/L 10 - 52 U/L [facility] AST [Catalytic activity/Vol] 19 U/L 10 - 39 U/L [facility] Bilirubin [Mass/Vol] 2.1 mg/dL High [facility]/dL [facility] Bilirubin.direct [Mass/Vol] 0.5 mg/dL High [facility] 0.[facility] mg/dL [facility] Interpretation and review of laboratory results Abnormal [facility] Protein [Mass/Vol] 6.1 g/dL Low 6.4 - 8.3 g/dL [facility] Albumin [Mass/Vol] 3.7 g/dL Normal 3.5-5.0 [facility] Comment on above: Performed By: #### C TAVO MEDLEY MGO #### [facility] (DEFAULT) [address] [place] [address] ALP [Catalytic activity/Vol] 73 U/L Normal 32-126 [facility] Comment on above: Performed By: #### C HM7, HFP, MGO #### [facility] (DEFAULT) [address] [place] [address] 66514 ALT [Catalytic activity/Vol] 12 U/L Normal 10-52 [facility] Comment on above: Performed By: #### C HM7, HFP, MGO #### [facility] (DEFAULT) [address] [place] [address] 18767 AST [Catalytic activity/Vol] 19 U/L Normal 10-39 [facility] Comment on above: Performed By: #### C HM7, HFP, MGO #### [facility] (DEFAULT) [address] [place] [address] 08935 Bilirubin [Mass/Vol] 2.1 mg/dL High <1.5 [facility] Comment on above: Performed By: #### C HM7, HFP, MGO #### [facility] (DEFAULT) [address] [place] [address] 73518 Bilirubin.indirect [Mass/Vol] 0.5 mg/dL High <0.3 [facility] Comment on above: Performed By: #### C HM7, HFP, MGO #### [facility] (DEFAULT) [address] [place] [address] 35505 Protein [Mass/Vol] 6.1 g/dL Low 6.4-8.3 [facility] Comment on above: Performed By: #### C HM7, HFP, MGO #### [facility] (DEFAULT) [address] [place] [address] 67493 ITRACONAZOLE LEVELon 024 Hydroxyitraconazole 7.6 mcg/mL Normal [facility] Comment on above: Order Comment: Dilan gregory draw level at specified interval PRIOR to dose. Result Comment: REFERENCE VALUE No therapeutic range established; activity and serum concentration are similar to parent drug. ADDITIONAL INFORMATION This test was developed and its performance characteristics determined by [facility] in a manner consistent with CLIA requirements. This test has not been cleared or approved by the U.S. Food and Drug Administration. Test Performed by: [facility] [address] [place] [address] Research Assistant Professor: Rosendo Bose M.D. Ph.D.; CLIA# [id number] Performed By: #### Chinedu Feliz, CHM7, HFP, IPB, MGO #### [facility] (DEFAULT) [address] [place] [address] Itraconazole 6.0 mcg/mL Normal [facility] Comment on above: Order Comment: Dilan e draw level at specified interval PRIOR to dose. Result Comment: REFERENCE VALUE >0.5 (localized infection), >1.0 (systemic infection) Performed By: #### C Tray, CHM7, HFP, IPB, MGO #### [facility] (DEFAULT) [address] [place] [address] 06013 MAGNESIUMon 01-20-2024 Interpretation and review of laboratory results Normal [facility] Magnesium [Mass/Vol] 1.6 mg/dL 1.6 - 2 .6 mg/dL [facility] Magnesium [Mass/Vol] 1.6 mg/dL Normal 1.6-2.6 [facility] Comment on above: Performed By: #### C HM7, HFP, MGO #### [facility] (DEFAULT) [address] [address] No Panel Informationon 01-20 [facility] POCT CO-OXIMETRYon Hemoglobin (Bld) [Mass/Vol] 12.8 g/dL Low 13.4 - 16.8 g/dL [facility] Interpretation and review of laboratory results Abnormal [facility] Oxyhemoglobin 69 % Low 94 - 98 % [facility] Ordering physician notified. Test performed at address of the patient encounter. [facility] Hemoglobin (Bld) [Mass/Vol] 13.3 g/dL Low 13.4 - 16.8 g/dL [facility] Interpretation and review of laboratory results Abnormal [facility] Oxyhemoglobin 69 % Low 94 - 98 % [facility] Ordering physician notified. Test performed at address of the patient encounter. [facility] PT,INR,PTTon 01-20-2024 aPTT Coag (PPP) [Time] 30.6 s [facility] INR Coag (Bld) [Relative time] 1.2 {INR} High 0.9 - 1.1 [facility] Interpretation and review of laboratory results Abnormal [facility] PT Coag (PPP) [Time] 15.5 s High [facility] aPTT Coag (Bld) [Time] 30.6 s Normal 24.0-34.[address] [facility] Comment on above: Performed By: #### C A, CHM7, HFP, IPB, MGO #### [facility] (DEFAULT) [address] [place] [address] 29768 INR Coag (PPP) [Relative time] 1.2 {INR} High 0.9-1.1 [facility] Comment on above: Performed By: #### C A, CHM7, HFP, IPB, MGO #### [facility] (DEFAULT) [address] [place] [address] PT Coag (PPP) [Time] 15.5 s High 11.9-14.2 [facility] Comment on above: Performed By: #### C A, CHM7, HFP, IPB, MGO #### [facility] (DEFAULT) [address] [place] [id number] TACROLIMUS LEVEL, TROUGH (DC E DRUG LEVEL)Ordered By: Yanira Marcum on 01-20-2024 Interpretation and review of laboratory results Normal [facility] Tacrolimus (Bld) [Mass/Vol] 7.7 ng/mL Bone Marrow Transplant: 4.0-12.0, Therapeutic: 5.0-15.0 [facility] Method performed is a chemiluminescent microparticle immunoasssay on the [employer] Seam[employer] i2000. The range is based on experience at [facility] and users should be aware that target concentrations vary widely depending on concomitant therapy, time post-transplant, and desired degree of immunosuppression. [facility] TACROLIMUS LEVEL, TROUGH (DC E DRUG LEVEL)on 01-20-2024 Tacrolimus, Trough 7.7 ng/mL Normal Bone Susana ow Transplant: 4.0-12.0, Therapeutic: 5.0-15.0 [facility] Comment on above: Order Comment: Pleas e draw at specified interval PRIOR to dose. Do not hold dose to wait for level. Specimens batched twice per day, (M-F) and once per day weekendsMethod performed is a chemiluminescent microparticle immunoasssay on the [employer] Seamstress i2000.The range is based on experience at [facility] and users should be aware that target concentrations vary widely depending on concomitant therapy, time post-transplant, and desired degree of immunosuppression. Performed By: #### C A, CHM7, HFP, IPB, MGO #### [facility] (DEFAULT) [address] [address] CBC,PLATELETSon 01-19-2024 Erythrocyte distribution width (RBC) [Ratio] 13.9 % 10.9 - 14.3 % [facility] Hematocrit (Bld) [Volume fraction] 37.5 % Low 39.6 - 48.8 % [facility] Hemoglobin (Bld) [Mass/Vol] 12.1 g/dL Low 13.4 - 16.8 g/dL [facility] Interpretation and review of laboratory results Abnormal [facility] MCH (RBC) [Entitic mass] 28.3 pg 26.1 - 33.3 pg [facility] MCHC (RBC) [Mass/Vol] 32.3 g/dL 31.9 - 36.5 g/dL [facility] MCV (RBC) [Entitic vol] 87.8 fL 79.0 - 94.5 fL [facility] Platelet mean volume (Bld) [Entitic vol] 10.4 fL 8.7 - 12.3 fL [facility] Platelets (Bld) [#/Vol] 163 10*3/uL 146 - 337 K/uL [facility] RBC (Bld) [#/Vol] 4.27 10*6/uL Low [facility] WBC (Bld) [#/Vol] 3.69 10*3/uL Low 3.73 - 10. 10 K/uL [facility] Hematocrit (Bld) [Volume fraction] 37.5 % Low 39.6-48.8 [facility] Comment on above: Performed By: #### C Tray, CHM7, HFP, IPB, MGO #### [facility] (DEFAULT) [address] [place] [address]140 Hemoglobin (Bld) [Mass/Vol] 12.1 g/dL Low 13.4-16.8 [facility] Comment on above: Performed By: #### C Tray, CHM7, HFP, IPB, MGO #### [facility] (DEFAULT) [address] [place] [address] MCV (RBC) [Entitic vol] 87.8 fL Normal 79.0-94.5 [facility] Comment on above: Performed By: #### C Tray, CHM7, HFP, IPB, MGO #### [facility] (DEFAULT) [address] [place] [address] Mean Cell Hgb 28.3 pg Normal 26.1-33.3 [facility] Comment on above: Performed By: #### C A, CHM7, HFP, IPB, MGO #### [facility] (DEFAULT) [address] [place] [address] Mean Cell Hgb Conc 32.3 g/dL Normal 31.9-36.5 [facility] Comment on above: Performed By: #### C Tray, CHM7, HFP, IPB, MGO #### [facility] (DEFAULT) [address] [place] [address] Platelet mean volume (Bld) [Entitic vol] 10.4 fL Normal 8.7-12.3 [facility] Comment on above: Performed By: #### C Tray, CHM7, HFP, IPB, MGO #### [facility] (DEFAULT) [address] [place] [address]882 Platelets (Bld) [#/Vol] 163 10*3/uL Normal 146-337 [facility] Comment on above: Performed By: #### Chinedu Feliz, CHM7, HFP, IPB, MGO #### [facility] (DEFAULT) [address] [place] [address] 89970 RBC (Bld) [#/Vol] 4.27 10*6/uL Low 4.38-5.83 [facility] Comment on above: Performed By: #### Chinedu Feliz, CHM7, HFP, IPB, MGO #### [facility] (DEFAULT) [address] [place] [address] 30288 RBC Distribution 13.9 % Normal 10.9-14.3 [facility] Comment on above: Performed By: #### C A, CHM7, HFP, IPB, MGO #### [facility] (DEFAULT) [address] [place] [address] 09446 WBC (Bld) [#/Vol] 3.69 10*3/uL Low 3.73-10.10 [facility] Comment on above: Performed By: #### C A, CHM7, HFP, IPB, MGO #### [facility] (DEFAULT) [address] [place] [address] CHEM 7 (LYTES,BUN,CREA,GLUC) on 01-19-2024 Anion gap [Moles/Vol] 14 mmol/L 7 - 17 mmol/L [facility] Chloride [Moles/Vol] 106 mmol/L 98 - 10 8 mmol/L [facility] CO2 [Moles/Vol] 24 mmol/L 21 - 31 mmol/L [facility] Creatinine [Mass/Vol] 1.13 mg/dL 0.70 - 1.30 mg/dL [facility] eGFR, CKD-EPI, Male 79 - PINF [facility] Comment on above: Reported eGFR is bas ed on the CKD-EPI 2020 equation using creatinine, age, and sex. Glucose [Mass/Vol] 86 mg/dL 70 - 99 mg/dL [facility] Osmolality Calc [Osmolality] 293 [facility] Potassium [Moles/Vol] 3.8 mmol/L 3.5 - 5.0 mmol/L [facility] Sodium [Moles/Vol] 140 mmol/L 135 - 145 mmol/L [facility] Urea nitrogen [Mass/Vol] 16 mg/dL 7 - 25 mg/dL [facility] Urea nitrogen/Creatinine [Mass ratio] 14 mg/mg [facility] Anion gap [Moles/Vol] 14 mmol/L Normal 7-17 [facility] Comment on above: Performed By: #### C A, CHM7, HFP, IPB, MGO #### [facility] (DEFAULT) [address] [place] [address] Chloride [Moles/Vol] 106 mmol/L Normal 98-108 [facility] Comment on above: Performed By: #### C A, CHM7, HFP, IPB, MGO #### [facility] (DEFAULT) [address] [place] [address] CO2 [Moles/Vol] 24 mmol/L Normal 21-31 [facility] Comment on above: Performed By: #### C A, CHM7, HFP, IPB, MGO #### [facility] (DEFAULT) [address] [place] [address] Creatinine [Mass/Vol] 1.13 mg/dL Normal 0.70-1.30 [facility] Comment on above: Performed By: #### C Tray, CHM7, HFP, IPB, MGO #### [facility] (DEFAULT) [address] [place] [address] GFR/1.73 sq M.predicted among non-blacks MDRD (S/P/Bld) [Vol rate/Area] 78 mL/min/{1.73_m2} Normal >=60 [facility] Comment on above: Result Comment: Repo rted eGFR is based on the CKD-EPI 2020 equation using creatinine, age, and sex. Performed By: #### C A, CHM7, HFP, IPB, MGO #### [facility] (DEFAULT) [address] [place] [address] Glucose [Mass/Vol] 86 mg/dL Normal 70-99 [facility] Comment on above: Performed By: #### C Tray, CHM7, HFP, IPB, MGO #### [facility] (DEFAULT) [address] [place] [address] Osmolality [Osmolality] 293 mosm/kg Normal 278-305 [facility] Comment on above: Performed By: #### C A, CHM7, HFP, IPB, MGO #### [facility] (DEFAULT) [address] [place] [address] Potassium [Moles/Vol] 3.8 mmol/L Normal 3.5-5.0 [facility] Comment on above: Performed By: #### C A, CHM7, HFP, IPB, MGO #### [facility] (DEFAULT) [address] [place] [address] Sodium [Moles/Vol] 140 mmol/L Normal 135-145 [facility] Comment on above: Performed By: #### C A, CHM7, HFP, IPB, MGO #### [facility] (DEFAULT) [address] [place] [address] Urea nitrogen [Mass/Vol] 16 mg/dL Normal 7-25 [facility] Comment on above: Performed By: #### C Tray, CHM7, HFP, IPB, MGO #### [facility] (DEFAULT) [address] [place] [address]304 Urea nitrogen/Creatinine [Mass ratio] 14 mg/mg Normal [facility] Comment on above: Performed By: #### C Tray, CHM7, HFP, IPB, MGO #### [facility] (DEFAULT) [address] [place] [address] EBV BY PCR, QUANTITATIVE,BLO ODon 01-19-2024 Ebv By Pcr, Quant, Blood <1000 Normal <1000 [facility] Comment on above: Order Comment: This test was performed using a real time PCR assay. The dynamic range for this assay is 1000-5,000,000 IU/mL. A result <1000 IU/mL does not rule out the presence of EBV DNA in quantities below the sensitivity of this assay. This test was developed and its performance characteristics determined by [facility]. It has not been cleared or approved by the FDA. The laboratory is regulated under CLIA as qualified to perform high-complexity testing. This test is used for clinical purposes. It should not be regarded as investigational or for research. Performed By: #### C Tray, CHM7, HFP, IPB, MGO #### [facility] (DEFAULT) [address] [place] [address] HISTOPLASMA AND BLASTOMYCES ANTIGEN, ENZYME IMMUNOASSAY, SERMon 01-19-2024 Histoplasma/Blastomyce s Ag Result Not detected Not Detected [facility] Comment on above: No antigen from Hist oplasma or Blastomyces detected. False negative results may occur depending on extent of disease, and/or site of infection. Repeat testing on a new specimen if clinically indicated. Histoplasma/Blastomyce s Ag Value Not detected ng/mL [facility] Comment on above: ADDITIONAL INFORMATION This test was developed and its performance characteristics determined by [facility] in a manner consistent with CLIA requirements. This test has not been cleared or approved by the U.S. Food and Drug Administration. Test Performed by: [facility] [address] [place] [address] Research Assistant Professor: Rosendo Bose M.D. Ph.D.; CLIA# [id number] [facility] MAGNESIUMon 01-19-2024 Interpretation and review of laboratory results Normal [facility] Magnesium [Mass/Vol] 1.8 mg/dL 1.6 - 2 .6 mg/dL [facility] Magnesium [Mass/Vol] 1.8 mg/dL Normal 1.6-2.6 [facility] Comment on above: Performed By: #### C A, CHM7, HFP, IPB, MGO #### [facility] (DEFAULT) [address] [place] [address] No Panel Informationon 01-19 [facility] TACROLIMUS LEVEL, TROUGH (DC E DRUG LEVEL)Ordered By: Raymundo Mehta on 01-19-2024 Interpretation and review of laboratory results Normal [facility] Tacrolimus (Bld) [Mass/Vol] 6.8 ng/mL Bone Marrow Transplant: 4.0-12.0, Therapeutic: 5.0-15.0 [facility] Method performed is a chemiluminescent microparticle immunoasssay on the [employer]am[employer] i2000. The range is based on experience at [facility] and users should be aware that target concentrations vary widely depending on concomitant therapy, time post-transplant, and desired degree of immunosuppression. [facility] TACROLIMUS LEVEL, TROUGH (DC E DRUG LEVEL)on 01-19-2024 Tacrolimus, Trough 6.8 ng/mL Normal Bone Susana ow Transplant: 4.0-12.0, Therapeutic: 5.0-15.0 [facility] Comment on above: Order Comment: Pleas e draw at specified interval PRIOR to dose. Do not hold dose to wait for level. Specimens batched twice per day, (M-F) and once per day weekendsMethod performed is a chemiluminescent microparticle immunoasssay on the [employer] Seam[employer] i2000.The range is based on experience at [facility] and users should be aware that target concentrations vary widely depending on concomitant therapy, time post-transplant, and desired degree of immunosuppression. Performed By: #### C HM7, HFP, MGO #### [facility] (DEFAULT) [address] [place] [address] US AV fistulaOrdered By: Diana Reyes on 01-19-2024 [facility] Work Phone: US AV fistulaon 01-19-2024 Radiology Study observation (narrative) [facility] AFP TUMOR MARKEROrdered By: Francisca Alaniz on 01-18-2024 AFP.tumor marker [Mass/Vol] ng/mL NINF - 8.1 ng/mL [facility] Comment on above: This test was perfor med on the Bit9 Immunoassay platform by [employer] which is a two-site sandwich chemiluminescent immunoassay. It is important to note that assays using different manufacturers and/or methods may not be comparable. Interpretation and review of laboratory results Normal [facility] CBC,PLATELETSon 01-18-2024 Erythrocyte distribution width (RBC) [Ratio] 13.9 % 10.9 - 14.3 % [facility] Hematocrit (Bld) [Volume fraction] 38.4 % Low 39.6 - 48.8 % [facility] Hemoglobin (Bld) [Mass/Vol] 12.1 g/dL Low 13.4 - 16.8 g/dL [facility] Interpretation and review of laboratory results Abnormal [facility] MCH (RBC) [Entitic mass] 27.8 pg 26.1 - 33.3 pg [facility] MCHC (RBC) [Mass/Vol] 31.5 g/dL Low 31.9 - 36.5 g/dL [facility] MCV (RBC) [Entitic vol] 88.3 fL 79.0 - 94.5 fL [facility] Platelet mean volume (Bld) [Entitic vol] 10.4 fL 8.7 - 12.3 fL [facility] Platelets (Bld) [#/Vol] 183 10*3/uL 146 - 337 K/uL [facility] RBC (Bld) [#/Vol] 4.35 10*6/uL Low [facility] WBC (Bld) [#/Vol] 3.66 10*3/uL Low 3.73 - 10. 10 K/uL [facility] Hematocrit (Bld) [Volume fraction] 38.4 % Low 39.6-48.8 [facility] Comment on above: Performed By: #### C Tray, CHM7, HFP, IPB, MGO #### [facility] (DEFAULT) [address] [place] [address]64 Hemoglobin (Bld) [Mass/Vol] 12.1 g/dL Low 13.4-16.8 [facility] Comment on above: Performed By: #### Chinedu Feliz, CHM7, HFP, IPB, MGO #### [facility] (DEFAULT) [address] [place] [address] 40806 MCV (RBC) [Entitic vol] 88.3 fL Normal 79.0-94.5 [facility] Comment on above: Performed By: #### C A, CHM7, HFP, IPB, MGO #### [facility] (DEFAULT) [address] [place] [address] 50100 Mean Cell Hgb 27.8 pg Normal 26.1-33.3 [facility] Comment on above: Performed By: #### C A, CHM7, HFP, IPB, MGO #### [facility] (DEFAULT) [address] [place] [address] 21466 Mean Cell Hgb Conc 31.5 g/dL Low 31.9-36.5 [facility] Comment on above: Performed By: #### C A, CHM7, HFP, IPB, MGO #### [facility] (DEFAULT) [address] [place] [address] 73609 Platelet mean volume (Bld) [Entitic vol] 10.4 fL Normal 8.7-12.3 [facility] Comment on above: Performed By: #### Chinedu Feliz, CHM7, HFP, IPB, MGO #### [facility] (DEFAULT) [address] [place] [address] 02231 Platelets (Bld) [#/Vol] 183 10*3/uL Normal 146-337 [facility] Comment on above: Performed By: #### Chinedu Feliz, CHM7, HFP, IPB, MGO #### [facility] (DEFAULT) [address] [place] [address] 47767 RBC (Bld) [#/Vol] 4.35 10*6/uL Low 4.38-5.83 [facility] Comment on above: Performed By: #### Chinedu Feliz, CHM7, HFP, IPB, MGO #### [facility] (DEFAULT) [address] [place] [address] 64302 RBC Distribution 13.9 % Normal 10.9-14.3 [facility] Comment on above: Performed By: #### Chinedu Feliz, CHM7, HFP, IPB, MGO #### [facility] (DEFAULT) [address] [place] [address] 69147 WBC (Bld) [#/Vol] 3.66 10*3/uL Low 3.73-10.10 [facility] Comment on above: Performed By: #### Chinedu Feliz, CHM7, HFP, IPB, MGO #### [facility] (DEFAULT) [address] [place] [address] 45420 CHEM 7 (LYTES,BUN,CREA,GLUC) on 01-18-2024 Anion gap [Moles/Vol] 11 mmol/L 7 - 17 mmol/L [facility] Chloride [Moles/Vol] 108 mmol/L 98 - 10 8 mmol/L [facility] CO2 [Moles/Vol] 26 mmol/L 21 - 31 mmol/L [facility] Creatinine [Mass/Vol] 1.00 mg/dL 0.70 - 1.30 mg/dL [facility] eGFR, CKD-EPI, Male - PINF [facility] Comment on above: Reported eGFR is bas ed on the CKD-EPI 2020 equation using creatinine, age, and sex. Glucose [Mass/Vol] 89 mg/dL 70 - 99 mg/dL [facility] Osmolality Calc [Osmolality] 295 [facility] Potassium [Moles/Vol] 3.9 mmol/L 3.5 - 5.0 mmol/L [facility] Sodium [Moles/Vol] 141 mmol/L 135 - 145 mmol/L [facility] Urea nitrogen [Mass/Vol] 16 mg/dL 7 - 25 mg/dL [facility] Urea nitrogen/Creatinine [Mass ratio] 16 mg/mg [facility] Anion gap [Moles/Vol] 11 mmol/L Normal 7-17 [facility] Comment on above: Performed By: #### C HM7, HFP, MGO #### [facility] (DEFAULT) [address] [place] [address] 85752 Chloride [Moles/Vol] 108 mmol/L Normal 98-108 [facility] Comment on above: Performed By: #### Chinedu HM7, HFP, MGO #### [facility] (DEFAULT) [address] [place] [address] 96924 CO2 [Moles/Vol] 26 mmol/L Normal 21-31 [facility] Comment on above: Performed By: #### Chinedu HM7, HFP, MGO #### [facility] (DEFAULT) [address] [place] [address] Creatinine [Mass/Vol] 1.00 mg/dL Normal 0.70-1.30 [facility] Comment on above: Performed By: #### Chinedu HM7, HFP, MGO #### [facility] (DEFAULT) [address] [place] [address] 53433 eGFR, CKD-EPI, Male > Normal >=60 [facility] Comment on above: Result Comment: Repo rted eGFR is based on the CKD-EPI 2020 equation using creatinine, age, and sex. Performed By: #### C HMJessica, HFP, MGO #### [facility] (DEFAULT) [address] [place] [address] 93528 Glucose [Mass/Vol] 89 mg/dL Normal 70-99 [facility] Comment on above: Performed By: #### C HM7, HFP, MGO #### [facility] (DEFAULT) [address] [place] [address] 37754 Osmolality [Osmolality] 295 mosm/kg Normal 278-305 [facility] Comment on above: Performed By: #### C HM7, HFP, MGO #### [facility] (DEFAULT) [address] [place] [address] 87766 Potassium [Moles/Vol] 3.9 mmol/L Normal 3.5-5.0 [facility] Comment on above: Performed By: #### C HMJessica, HFP, MGO #### [facility] (DEFAULT) [address] [place] [address] 55571 Sodium [Moles/Vol] 141 mmol/L Normal 135-145 [facility] Comment on above: Performed By: #### Chinedu HM7, HFP, MGO #### [facility] (DEFAULT) [address] [place] [address] 56870 Urea nitrogen [Mass/Vol] 16 mg/dL Normal 7-25 [facility] Comment on above: Performed By: #### C HM7, HFP, MGO #### [facility] (DEFAULT) [address] [place] [address] 52105 Urea nitrogen/Creatinine [Mass ratio] 16 mg/mg Normal [facility] Comment on above: Performed By: #### C HM7, HFP, MGO #### [facility] (DEFAULT) [address] [place] [address] 34579 Cardiac echo study Procedure Ordered By: Gian Carlos on 01-18-2024 Ao ASC index 1.63 cm/m2 [facility] Work Phone: [phone] Ao peak meliton 1.46 m/s [facility] Work Phone: [phone] Ao SOV index 1.56 cm/m2 [facility] Work Phone: [phone] Ao STJ index 1.25 cm/m2 [facility] Work Phone: [phone] Ao VTI 35.74 cm [facility] Work Phone: [phone] Ascending aorta 3.39 cm [facility] Work Phone: [phone] AV LVOT peak gradient 4 mmHg [facility] Work Phone: [phone] AV mean gradient 5 mmHg [facility] Work Phone: [phone] AV peak gradient 9 mmHG [facility] Work Phone: [phone] AV valve area 3.09 cm2 [facility] Work Phone: [phone] AV Velocity Ratio 0.73 [facility] Work Phone: [phone] VEGA (continuity Vmax) 3.01 cm2 [facility] Work Phone: [phone] VEGA (continuity VTI) 3.09 cm2 [facility] Work Phone: [phone] VEGA index (continuity Vmax) 1.45 m/s [facility] Work Phone: [phone] VEGA index (continuity VTI) 1.49 cm2/m2 [facility] Work Phone: [phone] Avg e' pk meliton 0.07 m/s [facility] Work Phone: [phone] Avg E/e' ratio 19.45 [facility] Work Phone: [phone] Body surface area Derived from formula 2.08 m2 [facility] Work Phone: [phone] BP EF 62 % [facility] Work Phone: [phone] DI (Vmax) 0.73 [facility] Work Phone: [phone] DI (VTI) 0.74 m/2 [facility] Work Phone: [phone] E wave decelartion time 180.38 msec [facility] Work Phone: [phone] e' lateral pk meliton 0.0789 m/s [facility]: [phone] e' lateral pk meliton 0.08 m/s [facility] Work Phone: [phone] e' septal pk meliton 0.0653 m/s [facility]: [phone] e' septal pk meliton 0.07 m/s [facility] Work Phone: [phone] E/A ratio 2.67 [facility] Work Phone: [phone] E/e' [facility] 17.62 [facility]: [phone] E/e' septal ratio 21.29 [facility] Work Phone: [phone] EF SP 2CH 66 [facility] Work Phone: [phone] EF SP 4CH 58 [facility] Work Phone: [phone] FS 28 % 28 - 44 % [facility] Work Phone: [phone] IVC ostium 2.30 cm [facility] Work Phone: [phone] IVS 1.11 cm [facility] Work Phone: [phone] LA AREA 2CH 24.36 cm2 [facility] Work Phone: [phone] LA area 4CH 20.36 cm2 [facility] Work Phone: [phone] LA ESV BP (MOD) 64 mL [facility] Work Phone: [phone] LA ESV BP (MOD) index 31 mL/m2 [facility] Work Phone: [phone] LA ESV SP 2CH (MOD) 76 mL [facility] Work Phone: [phone] LA ESV SP 4CH (MOD) 53 mL [facility] Work Phone: [phone] LV EDV BP 180 mL [facility] [facility] Work Phone: [phone] LV EDV SP 2CH 190 mL [facility] Work Phone: [phone] LV EDV SP 4CH 166 mL [facility] Work Phone: [phone] LV ESV BP 69 mL [facility] Work Phone: [phone] LV ESV SP 2CH 65 mL [facility] Work Phone: [phone] LV ESV SP 4CH 70 mL [facility] Work Phone: [phone] LV mass 254.73 g [facility] Work Phone: [phone] LV Mass Index 122.5 g/m2 [facility] Work Phone: [phone] LV RWT 0.42 [facility] Work Phone: [phone] LV stroke volume BP (ml) 111 mL [facility] Work Phone: [phone] LV stroke volume index BP 53.37 mL/m2 [facility] Work Phone: [phone] LVIDD 5.53 cm [facility] Work Phone: [phone] LVIDS 3.97 cm [facility] Work Phone: [phone] LVOT area 4.15 cm2 [facility] Work Phone: [phone] LVOT diameter 2.30 cm [facility] Work Phone: LVOT peak meliton 1.06 m/s [facility] Work Phone: [phone] LVOT peak VTI 26.61 cm [facility] Work Phone: [phone] [facility] stroke [facility]: [phone] LVOT stroke volume index 53.13 ml/m2 [facility] Work Phone: [phone] Mr max meliton 4.21 m/s [facility] Work Phone: [phone] MR VTI 134.50 cm [facility] Work Phone: [phone] MV mean gradient 3 mmHg [facility] Work Phone: [phone] MV peak gradient 11 mmHg [facility] Work Phone: [phone] MV pk A meliton 0.52 m/s [facility] Work Phone: [phone] MV pk E meliton 1.39 m/s [facility] Work Phone: [phone] MV stenosis pressure 1/2 time 58.56 ms [facility] Work Phone: [phone] MV valve area by continuity eq 2.93 cm2 [facility] Work Phone: [phone] MV valve area p 1/2 method 3.76 cm2 [facility] Work Phone: [phone] MV VTI 37.70 cm [facility] Work Phone: [phone] MVA (continuity VTI) 2.92 cm [facility] Work Phone: [phone] [facility] AV VTI RATIO PRE STRESS 0.74 [facility] Work Phone: [phone] [facility] ECHO LV BIPLANE SYSTOLIC VOLUME INDEX 33.17 mL/m2 [facility] Work Phone: [phone] [facility] ECHO LV BP DIASTOLIC VOLUME INDEX 86.54 mL/m2 [facility] Work Phone: [phone] [facility] ECHO MR PEAK GRADIENT 70.94 mmHg [facility] Work Phone: [phone] PW 1.16 cm [facility] Work Phone: [phone] RA area 4CH (MOD) 14.50 cm2 [facility] Work Phone: [phone] RA vol index 4CH (MOD) 18.27 mL/m2 [facility] Work Phone: Right atrium volume 4 chamber method of disks 38 mL [facility] Work Phone: RV Area diastolic 33.20 cm2 [facility] Work Phone: RV Area systolic 21.30 [facility] RV basal diam 4.52 cm [facility] Work Phone: RV Fractional area change 35.8 % [facility] Work Phone: RV long diam 8.96 cm [facility] Work Phone: RV mid diam 3.70 cm [facility] Work Phone: RV S' 22.01 cm/s [facility] Work Phone: RVOT peak gradient 4 mmHg [facility] Work Phone: RVOT peak meliton 0.96 m/s [facility] Work Phone: RVOT peak VTI 20.86 cm [facility] Work Phone: Sinus 3.24 cm [facility] Work Phone: STJ 2.61 cm [facility] Work Phone: Stroke Volume 111 cm/mL [facility] Work Phone: Stroke volume index 53 [facility] Work Phone: [phone] TAPSE 2.19 cm [facility] Work Phone: [facility] Work Phone: Cardiac echo [...] echocardiography study was performed. Imaging system used: TiVo. Indications Indications for study: shortness of breath. [facility] Radiology Study observation (narrative) [facility] ECHOCARDIOGRAMon 01-18-2024 Echocardiography ? Left Ventricle: [...] original result were not included. Facility [facility] Patient Information Patient Name George Styles Legal [...] Role Read Date Gian Carlos MD Echo Kirby 01/18/2024 Left Heart Measurements LV - Systole [...] Height We (more content not included)... Normal [facility] HEPATIC FUNCTION PANELon Albumin [Mass/Vol] 3.5 g/dL 3.5 - 5.0 g/dL [facility] ALP [Catalytic activity/Vol] 70 U/L 32 - 126 U/L [facility] ALT [Catalytic activity/Vol] 8 U/L Low 10 - 52 U/L [facility] AST [Catalytic activity/Vol] 20 U/L 10 - 39 U/L [facility] Bilirubin [Mass/Vol] 1.7 mg/dL High NINF - 1.5 mg/dL [facility] Bilirubin.direct [Mass/Vol] 0.4 mg/dL High NINF - 0.3 mg/dL [facility] Protein [Mass/Vol] 6.0 g/dL Low 6.4 - 8.3 g/dL [facility] Albumin [Mass/Vol] 3.5 g/dL Normal 3.5-5.0 [facility] Comment on above: Performed By: #### C HM7, HFP, MGO #### [facility] (DEFAULT) [address] [place] [address] ALP [Catalytic activity/Vol] 70 U/L Normal 32-126 [facility] Comment on above: Performed By: #### C HM7, HFP, MGO #### [facility] (DEFAULT) [address] [place] [address] ALT [Catalytic activity/Vol] 8 U/L Low 10-52 [facility] Comment on above: Performed By: #### C HM7, HFP, MGO #### [facility] (DEFAULT) [address] [place] [address] AST [Catalytic activity/Vol] 20 U/L Normal 10-39 [facility] Comment on above: Performed By: #### C HM7, HFP, MGO #### [facility] (DEFAULT) [address] [place] [address]8469 Bilirubin [Mass/Vol] 1.7 mg/dL High <1.5 [facility] Comment on above: Performed By: #### C HM7, HFP, MGO #### [facility] (DEFAULT) [address] [place] [address] 10671 Bilirubin.indirect [Mass/Vol] 0.4 mg/dL High <0.3 [facility] Comment on above: Performed By: #### C HMJessica, HFP, MGO #### [facility] (DEFAULT) [address] [place] [address] Protein [Mass/Vol] 6.0 g/dL Low 6.4-8.3 [facility] Comment on above: Performed By: #### C HM7, HFP, MGO #### [facility] (DEFAULT) [address] [place] [address] MAGNESIUMon 01-18-2024 Magnesium [Mass/Vol] 1.5 mg/dL Low 1.6 - 2 .6 mg/dL [facility] Magnesium [Mass/Vol] 1.5 mg/dL Low 1.6-2.6 [facility] Comment on above: Performed By: #### C HM7, HFP, MGO #### [facility] (DEFAULT) [address] [place] [address] No Panel Informationon 01-18 Interpretation and review of laboratory results Abnormal [facility] PT,INR,PTTon 01-18-2024 aPTT Coag (PPP) [Time] 30.0 s [facility] INR Coag (Bld) [Relative time] 1.1 {INR} 0.9 - 1.1 [facility] Interpretation and review of laboratory results Abnormal [facility] PT Coag (PPP) [Time] 14.5 s High [facility] aPTT Coag (Bld) [Time] 30.0 s Normal 24.0-34.[address] [facility] Comment on above: Performed By: #### C A, CHM7, HFP, IPB, MGO #### [facility] (DEFAULT) [address] [place] [address]59 INR Coag (PPP) [Relative time] 1.1 {INR} Normal 0.9-1.1 [facility] Comment on above: Performed By: #### C A, CHM7, HFP, IPB, MGO #### [facility] (DEFAULT) [address] [place] [address] 67667 PT Coag (PPP) [Time] 14.5 s High 11.9-14.2 [facility] Comment on above: Performed By: #### C Tray, CHM7, HFP, IPB, MGO #### [facility] (DEFAULT) [address] [place] [address]31 TSH W/FT4 REFLEXon 4 Interpretation and review of laboratory results Normal [facility] TSH Qn 2.660 m[IU]/L [facility] TSH 2.660 uIU/mL Normal 0.550-4.780 [facility] Comment on above: Performed By: #### C HM7, HFP, MGO #### [facility] (DEFAULT) [address] [place] [address]190 AFP TUMOR MARKERon 4 AFP Tumor Marker <2.2 Normal <8.1 [facility] Comment on above: Result Comment: This test was performed on the Bit9 Immunoassay platform by [employer] which is a two-site sandwich chemiluminescent immunoassay. It is important to note that assays using different manufacturers and/or methods may not be comparable. Performed By: #### C A, CHM7, HFP, IPB, MGO #### [facility] (DEFAULT) [address] [place] [address] 12064 DARYL AURIS SCREEN BY PCRO rdered By: Mynor Alejandro on 01-17-2024 Daryl auris Screen by PCR Not detected Not Detected [facility] Interpretation and review of laboratory results Normal [facility] This test was performed using a real-time PCR assay. This test was developed, and its performance characteristics determined by [facility]. It has not been cleared or approved by the FDA. The laboratory is regulated under CLIA as qualified to perform high-complexity testing. This test is used for clinical purposes. It should not be regarded as investigational or for research. [facility] CBC,PLATELETSon 01-17-2024 Erythrocyte distribution width (RBC) [Ratio] 14.0 % 10.9 - 14.3 % [facility] Hematocrit (Bld) [Volume fraction] 37.2 % Low 39.6 - 48.8 % [facility] Hemoglobin (Bld) [Mass/Vol] 12.0 g/dL Low 13.4 - 16.8 g/dL [facility] Interpretation and review of laboratory results Abnormal [facility] MCH (RBC) [Entitic mass] 27.9 pg 26.1 - 33.3 pg [facility] MCHC (RBC) [Mass/Vol] 32.3 g/dL 31.9 - 36.5 g/dL [facility] MCV (RBC) [Entitic vol] 86.5 fL 79.0 - 94.5 fL [facility] Platelet mean volume (Bld) [Entitic vol] 10.5 fL 8.7 - 12.3 fL [facility] Platelets (Bld) [#/Vol] 159 10*3/uL 146 - 337 K/uL [facility] RBC (Bld) [#/Vol] 4.30 10*6/uL Low [facility] WBC (Bld) [#/Vol] 3.69 10*3/uL Low 3.73 - 10. 10 K/uL [facility] Hematocrit (Bld) [Volume fraction] 37.2 % Low 39.6-48.8 [facility] Comment on above: Performed By: #### C HM7, HFP, MGO #### [facility] (DEFAULT) [address] [place] [address] 38647 Hemoglobin (Bld) [Mass/Vol] 12.0 g/dL Low 13.4-16.8 [facility] Comment on above: Performed By: #### C HM7, HFP, MGO #### [facility] (DEFAULT) [address] [place] [address] 68220 MCV (RBC) [Entitic vol] 86.5 fL Normal 79.0-94.5 [facility] Comment on above: Performed By: #### C HM7, HFP, MGO #### [facility] (DEFAULT) [address] [place] [address] 16876 Mean Cell Hgb 27.9 pg Normal 26.1-33.3 [facility] Comment on above: Performed By: #### C HM7, HFP, MGO #### [facility] (DEFAULT) [address] [place] [address] 98112 Mean Cell Hgb Conc 32.3 g/dL Normal 31.9-36.5 [facility] Comment on above: Performed By: #### C HM7, HFP, MGO #### [facility] (DEFAULT) [address] [place] [address] 13452 Platelet mean volume (Bld) [Entitic vol] 10.5 fL Normal 8.7-12.3 [facility] Comment on above: Performed By: #### C HM7, HFP, MGO #### [facility] (DEFAULT) [address] [place] [address] 03218 Platelets (Bld) [#/Vol] 159 10*3/uL Normal 146-337 [facility] Comment on above: Performed By: #### C HM7, HFP, MGO #### [facility] (DEFAULT) [address] [place] [address] 10814 RBC (Bld) [#/Vol] 4.30 10*6/uL Low 4.38-5.83 [facility] Comment on above: Performed By: #### C HM7, HFP, MGO #### [facility] (DEFAULT) [address] [place] [address] RBC Distribution 14.0 % Normal 10.9-14.3 [facility] Comment on above: Performed By: #### C HM7, HFP, MGO #### [facility] (DEFAULT) [address] [place] [address] WBC (Bld) [#/Vol] 3.69 10*3/uL Low 3.73-10.10 [facility] Comment on above: Performed By: #### Chinedu HM7, HFP, MGO #### [facility] (DEFAULT) [address] [place] [address] CHEM 7 (LYTES,BUN,CREA,GLUC) on 01-17-2024 Anion gap [Moles/Vol] 13 mmol/L 7 - 17 mmol/L [facility] Chloride [Moles/Vol] 109 mmol/L High 98 - 10 8 mmol/L [facility] CO2 [Moles/Vol] 21 mmol/L 21 - 31 mmol/L [facility] Creatinine [Mass/Vol] 1.04 mg/dL 0.70 - 1.30 mg/dL [facility] eGFR, CKD-EPI, Male 86 - PINF [facility] Comment on above: Reported eGFR is bas ed on the CKD-EPI 2020 equation using creatinine, age, and sex. Glucose [Mass/Vol] 82 mg/dL 70 - 99 mg/dL [facility] Osmolality Calc [Osmolality] 292 [facility] Potassium [Moles/Vol] 4.4 mmol/L 3.5 - 5.0 mmol/L [facility] Sodium [Moles/Vol] 139 mmol/L 135 - 145 mmol/L [facility] Urea nitrogen [Mass/Vol] 17 mg/dL 7 - 25 mg/dL [facility] Urea nitrogen/Creatinine [Mass ratio] 16 mg/mg [facility] Anion gap [Moles/Vol] 13 mmol/L Normal 7-17 [facility] Comment on above: Performed By: #### C HM7, HFP, MGO #### [facility] (DEFAULT) [address] [place] [address] 60346 Chloride [Moles/Vol] 109 mmol/L High 98-108 [facility] Comment on above: Performed By: #### C HM7, HFP, MGO #### [facility] (DEFAULT) [address] [place] [address] 82412 CO2 [Moles/Vol] 21 mmol/L Normal 21-31 [facility] Comment on above: Performed By: #### C HM7, HFP, MGO #### [facility] (DEFAULT) [address] [place] [address] 63391 Creatinine [Mass/Vol] 1.04 mg/dL Normal 0.70-1.30 [facility] Comment on above: Performed By: #### C HM7, HFP, MGO #### [facility] (DEFAULT) [address] [place] [address] 68326 GFR/1.73 sq M.predicted among non-blacks MDRD (S/P/Bld) [Vol rate/Area] 86 mL/min/{1.73_m2} Normal >=60 [facility] Comment on above: Result Comment: Repo rted eGFR is based on the CKD-EPI 1 equation using creatinine, age, and sex. Performed By: #### C HM7, HFP, MGO #### [facility] (DEFAULT) [address] [place] [address] 13095 Glucose [Mass/Vol] 82 mg/dL Normal 70-99 [facility] Comment on above: Performed By: #### C HM7, HFP, MGO #### [facility] (DEFAULT) [address] [place] [address] 67122 Osmolality [Osmolality] 292 mosm/kg Normal 278-305 [facility] Comment on above: Performed By: #### C HM7, HFP, MGO #### [facility] (DEFAULT) [address] [place] [address]40 Potassium [Moles/Vol] 4.4 mmol/L Normal 3.5-5.0 [facility] Comment on above: Performed By: #### C HM7, HFP, MGO #### [facility] (DEFAULT) [address] [place] [address] 84051 Sodium [Moles/Vol] 139 mmol/L Normal 135-145 [facility] Comment on above: Performed By: #### C HM7, HFP, MGO #### [facility] (DEFAULT) [address] [place] [address] 05746 Urea nitrogen [Mass/Vol] 17 mg/dL Normal 7-25 [facility] Comment on above: Performed By: #### C HM7, HFP, MGO #### [facility] (DEFAULT) [address] [place] [address] 35336 Urea nitrogen/Creatinine [Mass ratio] 16 mg/mg Normal [facility] Comment on above: Performed By: #### C HM7, HFP, MGO #### [facility] (DEFAULT) [address] [place] [address] ABDOMEN/PELVIS WITHOUT CO NTRASTon 01-17-2024 CT [...] unremarkable. Kidneys: Severe atrophy of the bilateral [place] kidney is without hydronephrosis. Right lower quadrant [...] middle lobe. Trace left pleural effusion. Normal [facility] CT Abdomen and Pelvis WO [...] unremarkable. Kidneys: Severe atrophy of the bilateral [place] kidney is without hydronephrosis. Right lower quadrant [...] unremarkable. Kidneys: Severe atrophy of the bilateral [place] kidney is without hydronephrosis. Right lower quadrant [...] middle lobe. Trace left pleural effusion. [facility] Radiology Study observation (narrative) [facility] HEPATIC FUNCTION PANELon Albumin [Mass/Vol] 3.5 g/dL 3.5 - 5.0 g/dL [facility] ALP [Catalytic activity/Vol] 73 U/L 32 - 126 U/L [facility] ALT [Catalytic activity/Vol] 7 U/L Low 10 - 52 U/L [facility] AST [Catalytic activity/Vol] 25 U/L 10 - 39 U/L [facility] Bilirubin [Mass/Vol] 1.8 mg/dL High NINF - 1.5 mg/dL [facility] Bilirubin.direct [Mass/Vol] 0.3 mg/dL High NINF - 0.3 mg/dL [facility] Protein [Mass/Vol] 6.0 g/dL Low 6.4 - 8.3 g/dL [facility] Albumin [Mass/Vol] 3.5 g/dL Normal 3.5-5.0 [facility] Comment on above: Performed By: #### C HM7, HFP, MGO #### [facility] (DEFAULT) [address] [place] [address] 11852 ALP [Catalytic activity/Vol] 73 U/L Normal 32-126 [facility] Comment on above: Performed By: #### C HM7, HFP, MGO #### [facility] (DEFAULT) [address] [place] [address] 67078 ALT [Catalytic activity/Vol] 7 U/L Low 10-52 [facility] Comment on above: Performed By: #### C HM7, HFP, MGO #### [facility] (DEFAULT) [address] [place] [address] 98607 AST [Catalytic activity/Vol] 25 U/L Normal 10-39 [facility] Comment on above: Performed By: #### C HM7, HFP, MGO #### [facility] (DEFAULT) [address] [place] [address] 69203 Bilirubin [Mass/Vol] 1.8 mg/dL High <1.5 [facility] Comment on above: Performed By: #### C HM7, HFP, MGO #### [facility] (DEFAULT) [address] [place] [address]15 Bilirubin.indirect [Mass/Vol] 0.3 mg/dL High <0.3 [facility] Comment on above: Performed By: #### C HM7, HFP, MGO #### [facility] (DEFAULT) [address] [place] [address] 70828 Protein [Mass/Vol] 6.0 g/dL Low 6.4-8.3 [facility] Comment on above: Performed By: #### C HM7, HFP, MGO #### [facility] (DEFAULT) [address] [place] [address]129 HISTOPLASMA AND BLASTOMYCES ANTIGEN, ENZYME IMMUNOASSAY, SERMon 01-17-2024 Histoplasma/Blastomyce s Ag Result Not detected Normal Not Detected [facility] Comment on above: Result Comment: No a ntigen from Histoplasma or Blastomyces detected. False negative results may occur depending on extent of disease, and/or site of infection. Repeat testing on a new specimen if clinically indicated. Performed By: #### NATHANIEL Willis, TAVO, JO ANN, MGO #### [facility] (DEFAULT) [address] [address] Histoplasma/Blastomyce s Ag Value Not detected Normal [facility] Comment on above: Result Comment: ADDITIONAL INFORMATION This test was developed and its performance characteristics determined by [facility] in a manner consistent with CLIA requirements. This test has not been cleared or approved by the U.S. Food and Drug Administration. Test Performed by: [place] [address] Research Assistant Professor: Rosendo Bose M.D. Ph.D.; CLIA# [id number] Performed By: #### NATHANIEL Willis, TAVO, JO ANN, MGO #### [facility] (DEFAULT) [address] [address] MAGNESIUMon 01-17-2024 Interpretation and review of laboratory results Normal [facility] Magnesium [Mass/Vol] 1.7 mg/dL 1.6 - 2 .6 mg/dL [facility] Magnesium [Mass/Vol] 1.7 mg/dL Normal 1.6-2.6 [facility] Comment on above: Performed By: #### Chinedu MEDLEY, TAVO, MGO #### [facility] (DEFAULT) [address] [address] No Panel Informationon 01-17 Interpretation and review of laboratory results Abnormal [facility] PT,INR,PTTon 01-17-2024 aPTT Coag (PPP) [Time] 29.9 s [facility] INR Coag (Bld) [Relative time] 1.1 {INR} 0.9 - 1.1 [facility] Interpretation and review of laboratory results Abnormal [facility] PT Coag (PPP) [Time] 14.5 s High [facility] aPTT Coag (Bld) [Time] 29.9 s Normal 24.0-34.[address] [facility] Comment on above: Performed By: #### C HM7, HFP, MGO #### [facility] (DEFAULT) [address] [place] [address]111 INR Coag (PPP) [Relative time] 1.1 {INR} Normal 0.9-1.1 [facility] Comment on above: Performed By: #### C HM7, HFP, MGO #### [facility] (DEFAULT) [address] [place] [address] PT Coag (PPP) [Time] 14.5 s High 11.9-14.2 [facility] Comment on above: Performed By: #### C HM7, HFP, MGO #### [facility] (DEFAULT) [address] [place] [address] 29096 B-TYPE NATRIURETIC PEPTIDE ( BRAIN)on 01-16-2024 Interpretation and review of laboratory results Abnormal [facility] Natriuretic peptide B (Bld) [Mass/Vol] 212 pg/mL High 0 - 100 pg/mL [facility] Natriuretic peptide B (Bld) [Mass/Vol] 212 pg/mL High 0-100 [facility] Comment on above: Performed By: #### C HM7, HFP, MGO #### [facility] (DEFAULT) [address] [place] [address] 48624 CALCIUMon 01-16-2024 Calcium [Mass/Vol] 8.5 mg/dL Low 8.6 - 10. 5 mg/dL [facility] Calcium [Mass/Vol] 8.5 mg/dL Low 8.6-10.5 [facility] Comment on above: Performed By: #### C A, CHM7, HFP, IPB, MGO #### [facility] (DEFAULT) [address] [place] [address] DARYL AURIS SCREEN BY PCRo n 01-16-2024 Daryl auris Screen by PCR Not detected Normal Not Detected [facility] Comment on above: Order Comment: This test was performed using a real-time PCR assay. This test was developed, and its performance characteristics determined by [facility]. It has not been cleared or approved by the FDA. The laboratory is regulated under CLIA as qualified to perform high-complexity testing. This test is used for clinical purposes. It should not be regarded as investigational or for research. Performed By: #### C HM7, HFP, MGO #### [facility] (DEFAULT) [address] [address] CBC AND ELECTRONIC DIFFon Basophils (Bld) [#/Vol] K/uL 0.00 - 0.09 K/uL [facility] Basophils/100 WBC (Bld) 0.6 % [facility] Differential cell count method Nom (Bld) Electronic Differential [facility] Eosinophils (Bld) [#/Vol] 0.09 10*3/uL 0.00 - 0.48 K/uL [facility] Eosinophils/100 WBC (Bld) 2.5 % [facility] Erythrocyte distribution width (RBC) [Ratio] 14.0 % 10.9 - 14.3 % [facility] Hematocrit (Bld) [Volume fraction] 37.4 % Low 39.6 - 48.8 % [facility] Hemoglobin (Bld) [Mass/Vol] 12.1 g/dL Low 13.4 - 16.8 g/dL [facility] Immature granulocytes (Bld) [#/Vol] K/uL NINF - 0.07 K/uL [facility] Immature granulocytes/100 WBC (Bld) 0.3 % [facility] Interpretation and review of laboratory results Abnormal [facility] Lymphocytes (Bld) [#/Vol] 1.16 10*3/uL 0.83 - 3.57 K/uL [facility] Lymphocytes/100 WBC (Bld) 32.0 % [facility] MCH (RBC) [Entitic mass] 28.4 pg 26.1 - 33.3 pg [facility] MCHC (RBC) [Mass/Vol] 32.4 g/dL 31.9 - 36.5 g/dL [facility] MCV (RBC) [Entitic vol] 87.8 fL 79.0 - 94.5 fL [facility] Monocytes (Bld) [#/Vol] 0.43 10*3/uL 0.24 - 0.93 K/uL [facility] Monocytes/100 WBC (Bld) 11.9 % [facility] Neutrophils (Bld) [#/Vol] 1.91 10*3/uL 1.57 - 6.19 K/uL [facility] Nucleated RBC/100 WBC (Bld) [Ratio] 0.0 % NINF [facility] Platelet mean volume (Bld) [Entitic vol] 10.1 fL 8.7 - 12.3 fL [facility] Platelets (Bld) [#/Vol] 155 10*3/uL 146 - 337 K/uL [facility] RBC (Bld) [#/Vol] 4.26 10*6/uL Low [facility] Segmented neutrophils/100 WBC (Bld) 52.7 % [facility] WBC (Bld) [#/Vol] 3.62 10*3/uL Low 3.73 - 10. 10 K/uL [facility] Abs Baso Auto < Normal 0.00-0.09 [facility] Comment on above: Performed By: #### C HM7, HFP, MGO #### [facility] (DEFAULT) [address] [place] [address] Basophils/100 WBC (Bld) 0.6 % Normal [facility] Comment on above: Performed By: #### C HM7, HFP, MGO #### [facility] (DEFAULT) [address] [place] [address] DIFF STATUS Electronic Differential Normal [facility] Comment on above: Performed By: #### C HM7, HFP, MGO #### [facility] (DEFAULT) [address] [place] [address] Eosinophils (Bld) [#/Vol] 0.09 10*3/uL Normal 0.00-0.48 [facility] Comment on above: Performed By: #### C HM7, HFP, MGO #### [facility] (DEFAULT) [address] [place] [address] Eosinophils/100 WBC (Bld) 2.5 % Normal [facility] Comment on above: Performed By: #### C HM7, HFP, MGO #### [facility] (DEFAULT) [address] [place] [address] Hematocrit (Bld) [Volume fraction] 37.4 % Low 39.6-48.8 [facility] Comment on above: Performed By: #### C HM7, HFP, MGO #### [facility] (DEFAULT) [address] [place] [address] Hemoglobin (Bld) [Mass/Vol] 12.1 g/dL Low 13.4-16.8 [facility] Comment on above: Performed By: #### C HM7, HFP, MGO #### [facility] (DEFAULT) [address] [place] [address] Immature Grans % 0.3 % Normal [facility] Comment on above: Performed By: #### C HM7, HFP, MGO #### [facility] (DEFAULT) [address] [place] [address] Immature Grans Absolute < Normal <=0.07 [facility] Comment on above: Performed By: #### C HM7, HFP, MGO #### [facility] (DEFAULT) [address] [place] [address] Lymphocytes (Bld) [#/Vol] 1.16 10*3/uL Normal 0.83-3.57 [facility] Comment on above: Performed By: #### C HM7, HFP, MGO #### [facility] (DEFAULT) [address] [place] [address] Lymphocytes/100 WBC (Bld) 32.0 % Normal [facility] Comment on above: Performed By: #### C HM7, HFP, MGO #### [facility] (DEFAULT) [address] [place] [address] 57621 MCV (RBC) [Entitic vol] 87.8 fL Normal 79.0-94.5 [facility] Comment on above: Performed By: #### C HM7, HFP, MGO #### [facility] (DEFAULT) [address] [place] [address] 58099 Mean Cell Hgb 28.4 pg Normal 26.1-33.3 [facility] Comment on above: Performed By: #### C HM7, HFP, MGO #### [facility] (DEFAULT) [address] [place] [address] Mean Cell Hgb Conc 32.4 g/dL Normal 31.9-36.5 [facility] Comment on above: Performed By: #### C HM7, HFP, MGO #### [facility] (DEFAULT) [address] [place] [address] Monocytes (Bld) [#/Vol] 0.43 10*3/uL Normal 0.24-0.93 [facility] Comment on above: Performed By: #### C HM7, HFP, MGO #### [facility] (DEFAULT) [address] [place] [address]92 Monocytes/100 WBC (Bld) 11.9 % Normal [facility] Comment on above: Performed By: #### C HM7, HFP, MGO #### [facility] (DEFAULT) [address] [place] [address] Nucleated RBC 0.0 /100 WBC Normal <=0.2 [facility] Comment on above: Performed By: #### C HM7, HFP, MGO #### [facility] (DEFAULT) [address] [place] [address] Platelet mean volume (Bld) [Entitic vol] 10.1 fL Normal 8.7-12.3 [facility] Comment on above: Performed By: #### C HM7, HFP, MGO #### [facility] (DEFAULT) [address] [place] [address] Platelets (Bld) [#/Vol] 155 10*3/uL Normal 146-337 [facility] Comment on above: Performed By: #### C HM7, HFP, MGO #### [facility] (DEFAULT) [address] [place] [address] RBC (Bld) [#/Vol] 4.26 10*6/uL Low 4.38-5.83 [facility] Comment on above: Performed By: #### C HM7, HFP, MGO #### [facility] (DEFAULT) [address] [place] [address] RBC Distribution 14.0 % Normal 10.9-14.3 [facility] Comment on above: Performed By: #### Chinedu HM7, HFP, MGO #### [facility] (DEFAULT) [address] [place] [address] Segs + Bands Auto 52.7 % Normal [facility] Comment on above: Performed By: #### C HM7, HFP, MGO #### [facility] (DEFAULT) [address] [place] [address] Segs + Bands,Absolute Auto 1.91 K/uL Normal 1.57-6.19 [facility] Comment on above: Performed By: #### C HM7, HFP, MGO #### [facility] (DEFAULT) [address] [place] [address] WBC (Bld) [#/Vol] 3.62 10*3/uL Low 3.73-10.10 [facility] Comment on above: Performed By: #### C HM7, HFP, MGO #### [facility] (DEFAULT) [address] [place] [address] CHEM 7 (LYTES,BUN,CREA,GLUC) on 01-16-2024 Anion gap [Moles/Vol] 11 mmol/L 7 - 17 mmol/L [facility] Chloride [Moles/Vol] 108 mmol/L 98 - 10 8 mmol/L [facility] CO2 [Moles/Vol] 24 mmol/L 21 - 31 mmol/L [facility] Creatinine [Mass/Vol] 1.04 mg/dL 0.70 - 1.30 mg/dL [facility] eGFR, CKD-EPI, Male 86 - PINF [facility] Comment on above: Reported eGFR is bas ed on the CKD-EPI 2020 equation using creatinine, age, and sex. Glucose [Mass/Vol] 95 mg/dL 70 - 99 mg/dL [facility] Osmolality Calc [Osmolality] 293 [facility] Potassium [Moles/Vol] 4.0 mmol/L 3.5 - 5.0 mmol/L [facility] Sodium [Moles/Vol] 139 mmol/L 135 - 145 mmol/L [facility] Urea nitrogen [Mass/Vol] 19 mg/dL 7 - 25 mg/dL [facility] Urea nitrogen/Creatinine [Mass ratio] 18 mg/mg [facility] Anion gap [Moles/Vol] 11 mmol/L Normal 7-17 [facility] Comment on above: Performed By: #### C A, CHM7, HFP, IPB, MGO #### [facility] (DEFAULT) [address] [place] [address] Chloride [Moles/Vol] 108 mmol/L Normal 98-108 [facility] Comment on above: Performed By: #### C A, CHM7, HFP, IPB, MGO #### [facility] (DEFAULT) [address] [place] [address] CO2 [Moles/Vol] 24 mmol/L Normal 21-31 [facility] Comment on above: Performed By: #### C A, CHM7, HFP, IPB, MGO #### [facility] (DEFAULT) [address] [place] [address] Creatinine [Mass/Vol] 1.04 mg/dL Normal 0.70-1.30 [facility] Comment on above: Performed By: #### C A, CHM7, HFP, IPB, MGO #### [facility] (DEFAULT) [address] [place] [address] GFR/1.73 sq M.predicted among non-blacks MDRD (S/P/Bld) [Vol rate/Area] 86 mL/min/{1.73_m2} Normal >=60 [facility] Comment on above: Result Comment: Repo rted eGFR is based on the CKD-EPI 2020 equation using creatinine, age, and sex. Performed By: #### C A, CHM7, HFP, IPB, MGO #### [facility] (DEFAULT) [address] [place] [address] Glucose [Mass/Vol] 95 mg/dL Normal 70-99 [facility] Comment on above: Performed By: #### C A, CHM7, HFP, IPB, MGO #### [facility] (DEFAULT) [address] [place] [address]83 Osmolality [Osmolality] 293 mosm/kg Normal 278-305 [facility] Comment on above: Performed By: #### C A, CHM7, HFP, IPB, MGO #### [facility] (DEFAULT) [address] [place] [address] Potassium [Moles/Vol] 4.0 mmol/L Normal 3.5-5.0 [facility] Comment on above: Performed By: #### C A, CHM7, HFP, IPB, MGO #### [facility] (DEFAULT) [address] [place] [address] Sodium [Moles/Vol] 139 mmol/L Normal 135-145 [facility] Comment on above: Performed By: #### C A, CHM7, HFP, IPB, MGO #### [facility] (DEFAULT) [address] [place] [address] Urea nitrogen [Mass/Vol] 19 mg/dL Normal 7-25 [facility] Comment on above: Performed By: #### C A, CHM7, HFP, IPB, MGO #### [facility] (DEFAULT) [address] [place] [address]3353 Urea nitrogen/Creatinine [Mass ratio] 18 mg/mg Normal [facility] Comment on above: Performed By: #### C A, CHM7, HFP, IPB, MGO #### [facility] (DEFAULT) [address] [place] [address] 13965 D-DIMER,QUANTITATIVEOrdered By: Shaji Kelly on 01-16-2024 Fibrin D-dimer FEU (PPP) [Mass/Vol] 0.67 High [facility] Comment on above: The D-Dimer assay is intended for use in conjuction with a clinical pretest probability (PTP) assessment model to exclude pulmonary embolism (PE) and as an aid in the diagnosis of Deep Vein Thrombosis (DVT) in outpatients suspected of PE or DVT. For the assay in use at [facility] ([facility]), a cutoff of <0.50 mcg/mL has a Negative Predictive Value of 99.7% for exclusion of DVT in low and moderate PTP patients. Interpretation and review of laboratory results Abnormal [facility] D-DIMER,QUANTITATIVEon 01-16 D-Dimer, High Sensitivity 0.67 mcg/mL FEU High <0.50 [facility] Comment on above: Result Comment: The D-Dimer assay is intended for use in conjuction with a clinical pretest probability (PTP) assessment model to exclude pulmonary embolism (PE) and as an aid in the diagnosis of Deep Vein Thrombosis (DVT) in outpatients suspected of PE or DVT. For the assay in use at [facility] ([facility]), a cutoff of <0.50 mcg/mL has a Negative Predictive Value of 99.7% for exclusion of DVT in low and moderate PTP patients. Performed By: #### C HM7, HFP, MGO #### [facility] (DEFAULT) [address] [place] [address] 90820 HEPATIC FUNCTION PANELon Albumin [Mass/Vol] 3.7 g/dL 3.5 - 5.0 g/dL [facility] ALP [Catalytic activity/Vol] 70 U/L 32 - 126 U/L [facility] ALT [Catalytic activity/Vol] 8 U/L Low 10 - 52 U/L [facility] AST [Catalytic activity/Vol] 21 U/L 10 - 39 U/L [facility] Bilirubin [Mass/Vol] 1.9 mg/dL High NINF - 1.5 mg/dL [facility] Bilirubin.direct [Mass/Vol] 0.4 mg/dL High NINF - 0.3 mg/dL [facility] Protein [Mass/Vol] 6.1 g/dL Low 6.4 - 8.3 g/dL [facility] Albumin [Mass/Vol] 3.7 g/dL Normal 3.5-5.0 [facility] Comment on above: Performed By: #### C Tray, CHM7, HFP, IPB, MGO #### [facility] (DEFAULT) [address] [place] [address] 02620 ALP [Catalytic activity/Vol] 70 U/L Normal 32-126 [facility] Comment on above: Performed By: #### Chinedu Feliz, CHM7, HFP, IPB, MGO #### [facility] (DEFAULT) [address] [place] [address] 46828 ALT [Catalytic activity/Vol] 8 U/L Low 10-52 [facility] Comment on above: Performed By: #### Chinedu A, CHM7, HFP, IPB, MGO #### [facility] (DEFAULT) [address] [place] [address] 08067 AST [Catalytic activity/Vol] 21 U/L Normal 10-39 [facility] Comment on above: Performed By: #### C A, CHM7, HFP, IPB, MGO #### [facility] (DEFAULT) [address] [place] [address] 29110 Bilirubin [Mass/Vol] 1.9 mg/dL High <1.5 [facility] Comment on above: Performed By: #### C A, CHM7, HFP, IPB, MGO #### [facility] (DEFAULT) [address] [place] [address] 62858 Bilirubin.indirect [Mass/Vol] 0.4 mg/dL High <0.3 [facility] Comment on above: Performed By: #### C A, CHM7, HFP, IPB, MGO #### [facility] (DEFAULT) [address] [place] [address] 35255 Protein [Mass/Vol] 6.1 g/dL Low 6.4-8.3 [facility] Comment on above: Performed By: #### C A, CHM7, HFP, IPB, MGO #### [facility] (DEFAULT) [address] [place] [address] 33230 MAGNESIUMon 01-16-2024 Magnesium [Mass/Vol] 1.7 mg/dL 1.6 - 2 .6 mg/dL [facility] Magnesium [Mass/Vol] 1.7 mg/dL Normal 1.6-2.6 [facility] Comment on above: Performed By: #### C A, CHM7, HFP, IPB, MGO #### [facility] (DEFAULT) [address] [place] [address] [phone] No Panel Informationon 01-16 Interpretation and review of laboratory results Abnormal [facility] Interpretation and review of laboratory results Normal [facility] PHOSPHATE, INORGANICon 01-16 Phosphate [Mass/Vol] 4.1 mg/dL 2.2 - 4 .6 mg/dL [facility] Phosphorous 4.1 mg/dL Normal 2.2-4.6 [facility] Comment on above: Performed By: #### C A, CHM7, HFP, IPB, MGO #### [facility] (DEFAULT) [address] [place] [address] 32438 PT,INR,PTTon 01-16-2024 aPTT Coag (PPP) [Time] 29.6 s [facility] INR Coag (Bld) [Relative time] 1.2 {INR} High 0.9 - 1.1 [facility] Interpretation and review of laboratory results Abnormal [facility] PT Coag (PPP) [Time] 14.9 s High [facility] aPTT Coag (Bld) [Time] 29.6 s Normal 24.0-34.[address] [facility] Comment on above: Performed By: #### C HM7, HFP, MGO #### [facility] (DEFAULT) [address] [place] [address] 89998 INR Coag (PPP) [Relative time] 1.2 {INR} High 0.9-1.1 [facility] Comment on above: Performed By: #### C HM7, HFP, MGO #### [facility] (DEFAULT) [address] [place] [address] 27855 PT Coag (PPP) [Time] 14.9 s High 11.9-14.2 [facility] Comment on above: Performed By: #### C HM7, HFP, MGO #### [facility] (DEFAULT) [address] [place] [address] 12085 TACROLIMUS LEVEL, TROUGH (DC E DRUG LEVEL)Ordered By: Jimy Castillo on 01-16-2024 Interpretation and review of laboratory results Normal [facility] Tacrolimus (Bld) [Mass/Vol] 5.7 ng/mL Bone Marrow Transplant: 4.0-12.0, Therapeutic: 5.0-15.0 [facility] Method performed is a chemiluminescent microparticle immunoasssay on the [employer] i2000. The range is based on experience at [facility] and users should be aware that target concentrations vary widely depending on concomitant therapy, time post-transplant, and desired degree of immunosuppression. [facility] TACROLIMUS LEVEL, TROUGH (DC E DRUG LEVEL)on 01-16-2024 Tacrolimus, Trough 5.7 ng/mL Normal Bone Susana ow Transplant: 4.0-12.0, Therapeutic: 5.0-15.0 [facility] Comment on above: Order Comment: Pleas e draw at specified interval PRIOR to dose. Do not hold dose to wait for level. Specimens batched twice per day, (M-F) and once per day weekendsMethod performed is a chemiluminescent microparticle immunoasssay on the [employer] i2000.The range is based on experience at [facility] and users should be aware that target concentrations vary widely depending on concomitant therapy, time post-transplant, and desired degree of immunosuppression. Performed By: #### C A, CHM7, HFP, IPB, MGO #### [facility] (DEFAULT) [address] [place] [address] US ABDOMEN LIVER DOPPLERon 0 01-16-2024 US [...] effusion. Trace right upper quadrant ascites. Normal [facility] US.doppler Abdominal vessels on 01-16-2024 [...] pleural effusion. Trace right upper quadrant ascites. [facility] Radiology Study observation (narrative) [facility] US.doppler Abdominal vessels Ordered By: Iona Duran on 01-16-2024 [facility] Work Phone: XR CHEST [...] Normal IMPRESSION: Moderate right pleural effusion. Normal [facility] XR Chest PA and Lateralon [...] Normal IMPRESSION IMPRESSION: Moderate right pleural effusion. [facility] Radiology Study observation (narrative) [facility] XR Chest PA and LateralOrder ed By: Daisha Patterson on 01-16-2024 [facility] Work Phone: ALL CBC WITH AUTO DIFFon BASOPHILS ABSOL[facility] WBC (Bld) 0.5 % 0.2 - 2.0 % [facility] Eosinophils/100 WBC (Bld) 2.8 % 0.9 - 7.0 % [facility] Erythrocyte distribution width (RBC) [Ratio] 13.8 % 11.0 - 15.0 % [facility] Hematocrit (Bld) [Volume fraction] 43.7 % 42.0 - 54.0 % [facility] Hemoglobin (Bld) [Mass/Vol] 14.0 g/dL 14.0 - 18.0 g/dL [facility] IMMATURE GRANULOCYTES ABS AUTO 0.01 [facility] Immature granulocytes/100 WBC (Bld) 0.3 % 0.0 - 0.5 % [facility] LYMPHOCYTES ABSOLUTE AUTO 1.5 [facility] Lymphocytes/100 WBC (Bld) 37.5 % 20.5 - 60.0 % [facility] MCH (RBC) [Entitic mass] 28.4 pg 25.9 - 34.0 pg [facility] MCHC (RBC) [Mass/Vol] 32.0 g/dL 29.9 - 35.2 g/dL [facility] MCV (RBC) [Entitic vol] 88.6 fL 80.0 - 94.0 fL [facility] MONOCYTES ABSOLUTE AUTO 0.5 [facility] Monocytes/100 WBC (Bld) 11.9 % 1.7 - 12.0 % [facility] NEUTROPHILS ABSOLUTE AUTO 1.9 [facility] Neutrophils/100 WBC (Bld) 47.0 % 43.0 - 75.0 % [facility] Platelet mean volume (Bld) [Entitic vol] 10.3 fL 9.5 - 13.5 fL [facility] RBC 4.93 [facility] WBC 4.0 [facility] ALL CBC WITH AUTO DIFFon BASOPHILS ABSOLUTE AUTO 0.0 [facility] Basophils/100 WBC (Bld) 0.5 % 0.2 - 2.0 % [facility] Eosinophils/100 WBC (Bld) 2.6 % 0.9 - 7.0 % [facility] Erythrocyte distribution width (RBC) [Ratio] 13.5 % 11.0 - 15.0 % [facility] Hematocrit (Bld) [Volume fraction] 43.8 % 42.0 - 54.0 % [facility] Hemoglobin (Bld) [Mass/Vol] 14.0 g/dL 14.0 - 18.0 g/dL [facility] IMMATURE GRANULOCYTES ABS AUTO 0.00 [facility] Immature granulocytes/100 WBC (Bld) 0.0 % 0.0 - 0.5 % [facility] Interpretation and review of laboratory results Abnormal [facility] LYMPHOCYTES ABSOLUTE AUTO 1.8 [facility] Lymphocytes/100 WBC (Bld) 45.2 % 20.5 - 60.0 % [facility] MCH (RBC) [Entitic mass] 27.9 pg 25.9 - 34.0 pg [facility] MCHC (RBC) [Mass/Vol] 32.0 g/dL 29.9 - 35.2 g/dL [facility] MCV (RBC) [Entitic vol] 87.4 fL 80.0 - 94.0 fL [facility] MONOCYTES ABSOLUTE AUTO 0.4 [facility] Monocytes/100 WBC (Bld) 9.6 % 1.7 - 12.0 % [facility] NEUTROPHILS ABSOLUTE AUTO 1.6 [facility] Neutrophils/100 WBC (Bld) 42.1 % Low 43.0 - 75.0 % [facility] Platelet mean volume (Bld) [Entitic vol] 9.8 fL 9.5 - 13.5 fL [facility] TBH EO # 0.1 [facility] TB PLT 180 [facility] RBC 5.01 [facility] WBC 3.9 Low [facility] CHEM 7 (LYTES,BUN,CREA,GLUC) on 09-11-2023 Anion gap [Moles/Vol] 13 mmol/L 7 - 17 mmol/L [facility] Chloride [Moles/Vol] 111 mmol/L High 98 - 10 8 mmol/L [facility] CO2 [Moles/Vol] 20 mmol/L Low 21 - 31 mmol/L [facility] Creatinine [Mass/Vol] 1.13 mg/dL 0.70 - 1.30 mg/dL [facility] eGFR, CKD-EPI, [facility] 78 - [facility] Gl[facility] [Mass/Vol] 109 mg/dL High 70 - 99 mg/dL [facility] Interpretation and review of laboratory results Abnormal [facility] Osmolality Calc [Osmolality] 295 [facility] Potassium [Moles/Vol] 4.3 mmol/L 3.5 - 5.0 mmol/L [facility] Sodium [Moles/Vol] 140 mmol/L 135 - 145 mmol/L [facility] Urea nitrogen [Mass/Vol] 16 mg/dL 7 - 25 mg/dL [facility] Urea nitrogen/Creatinine [Mass ratio] 14 mg/mg [facility] Anion gap [Moles/Vol] 13 mmol/L Normal 7-17 [facility] Comment on above: Performed By: #### C Tray, CHM7, HFP, IPB, MGO #### [facility] (DEFAULT) [address] [place] [address] [id number] Chloride [Moles/Vol] 111 mmol/L High 98-108 [facility] Comment on above: Performed By: #### C Tray, CHM7, HFP, IPB, MGO #### [facility] (DEFAULT) [address] [place] [address] 40407 CO2 [Moles/Vol] 20 mmol/L Low 21-31 [facility] Comment on above: Performed By: #### C A, CHM7, HFP, IPB, MGO #### [facility] (DEFAULT) [address] [place] [address] 98057 Creatinine [Mass/Vol] 1.13 mg/dL Normal 0.70-1.30 [facility] Comment on above: Performed By: #### C A, CHM7, HFP, IPB, MGO #### [facility] (DEFAULT) [address] [place] [address] 31843 GFR/1.73 sq M.predicted among non-blacks MDRD (S/P/Bld) [Vol rate/Area] 78 mL/min/{1.73_m2} Normal >=60 [facility] Comment on above: Result Comment: Repo rted eGFR is based on the CKD-EPI 2020 equation using creatinine, age, and sex. Performed By: #### C A, CHM7, HFP, IPB, MGO #### [facility] (DEFAULT) [address] [place] [address] 19240 Glucose [Mass/Vol] 109 mg/dL High 70-99 [facility] Comment on above: Performed By: #### C A, CHM7, HFP, IPB, MGO #### [facility] (DEFAULT) [address] [place] [address] 37433 Osmolality [Osmolality] 295 mosm/kg Normal 278-305 [facility] Comment on above: Performed By: #### C A, CHM7, HFP, IPB, MGO #### [facility] (DEFAULT) [address] [place] [address] 72574 Potassium [Moles/Vol] 4.3 mmol/L Normal 3.5-5.0 [facility] Comment on above: Performed By: #### C A, CHM7, HFP, IPB, MGO #### [facility] (DEFAULT) [address] [place] [address] 17545 Sodium [Moles/Vol] 140 mmol/L Normal 135-145 [facility] Comment on above: Performed By: #### C A, CHM7, HFP, IPB, MGO #### [facility] (DEFAULT) [address] [place] [address] 17167 Urea nitrogen [Mass/Vol] 16 mg/dL Normal 7-25 [facility] Comment on above: Performed By: #### C A, CHM7, HFP, IPB, MGO #### [facility] (DEFAULT) [address] [place] [address] 46221 Urea nitrogen/Creatinine [Mass ratio] 14 mg/mg Normal [facility] Comment on above: Performed By: #### C A, CHM7, HFP, IPB, MGO #### [facility] (DEFAULT) [address] [place] [address] 07684 GLUCOSE POCon 09-11-2023 Glucose [Mass/Vol] 108 mg/dL High 70 - 99 mg/dL [facility] Interpretation and review of laboratory results Abnormal [facility] POC Sample Type CAPBL [facility] Legionella sp identified Org specific cx Nom (Unsp spec)on 09-11-2023 Bacteria identified Cx Nom (Unsp spec) NO GROWTH DAY 7 OF 7 [facility] MAGNESIUMon 09-11-2023 Interpretation and review of laboratory results Normal [facility] Magnesium [Mass/Vol] 1.6 mg/dL 1.6 - 2 .6 mg/dL [facility] Magnesium [Mass/Vol] 1.6 mg/dL Normal 1.6-2.6 [facility] Comment on above: Performed By: #### C A, CHM7, HFP, IPB, MGO #### [facility] (DEFAULT) [address] [place] [address] No Panel Informationon 09-11 [facility] TACROLIMUS LEVEL, TROUGH (DC E DRUG LEVEL)on 09-11-2023 Interpretation and review of laboratory results Normal [facility] Tacrolimus (Bld) [Mass/Vol] 11.5 ng/mL [facility] Tacrolimus, Trough 11.5 ng/mL Normal Bone Susana ow Transplant: 4.0-12.0, Therapeutic: 5.0-15.0 [facility] Comment on above: Order Comment: Pleas e draw at specified interval PRIOR to dose. Do not hold dose to wait for level. Specimens batched twice per day, (M-F) and once per day weekendsMethod performed is a chemiluminescent microparticle immunoasssay on the [employer] i2000.The range is based on experience at [facility] and users should be aware that target concentrations vary widely depending on concomitant therapy, time post-transplant, and desired degree of immunosuppression. Performed By: #### C A, CHM7, HFP, IPB, MGO #### [facility] (DEFAULT) [address] [place] [address] 06048 CBC,PLATELETSon 09-10-2023 Erythrocyte distribution width (RBC) [Ratio] 13.9 % 10.9 - 14.3 % [facility] Hematocrit (Bld) [Volume fraction] 40.0 % 39.6 - 48.8 % [facility] Hemoglobin (Bld) [Mass/Vol] 12.7 g/dL Low 13.4 - 16.8 g/dL [facility] Interpretation and review of laboratory results Abnormal [facility] MCH (RBC) [Entitic mass] 27.3 pg 26.1 - 33.3 pg [facility] MCHC (RBC) [Mass/Vol] 31.8 g/dL Low 31.9 - 36.5 g/dL [facility] MCV (RBC) [Entitic vol] 86.0 fL 79.0 - 94.5 fL [facility] Platelet mean volume (Bld) [Entitic vol] 9.5 fL 8.7 - 12.3 fL [facility] Platelets (Bld) [#/Vol] 225 10*3/uL 146 - 337 K/uL [facility] RBC (Bld) [#/Vol] 4.65 10*6/uL [facility] WBC (Bld) [#/Vol] 6.52 10*3/uL 3.73 - 10. 10 K/uL [facility] Hematocrit (Bld) [Volume fraction] 40.0 % Normal 39.6-48.8 [facility] Comment on above: Performed By: #### C Tray, CHM7, HFP, IPB, MGO #### [facility] (DEFAULT) [address] [place] [address] 29807 Hemoglobin (Bld) [Mass/Vol] 12.7 g/dL Low 13.4-16.8 [facility] Comment on above: Performed By: #### C A, CHM7, HFP, IPB, MGO #### [facility] (DEFAULT) [address] [place] [address] MCV (RBC) [Entitic vol] 86.0 fL Normal 79.0-94.5 [facility] Comment on above: Performed By: #### Chinedu Feliz, CHM7, HFP, IPB, MGO #### [facility] (DEFAULT) [address] [place] [address] 47945 Mean Cell Hgb 27.3 pg Normal 26.1-33.3 [facility] Comment on above: Performed By: #### Chinedu Feliz, CHM7, HFP, IPB, MGO #### [facility] (DEFAULT) [address] [place] [address] 66807 Mean Cell Hgb Conc 31.8 g/dL Low 31.9-36.5 [facility] Comment on above: Performed By: #### Chinedu Feliz, CHM7, HFP, IPB, MGO #### [facility] (DEFAULT) [address] [place] [address] 44183 Platelet mean volume (Bld) [Entitic vol] 9.5 fL Normal 8.7-12.3 [facility] Comment on above: Performed By: #### Chinedu Feliz, CHM7, HFP, IPB, MGO #### [facility] (DEFAULT) [address] [place] [address] 22043 Platelets (Bld) [#/Vol] 225 10*3/uL Normal 146-337 [facility] Comment on above: Performed By: #### Chinedu Feliz, CHM7, HFP, IPB, MGO #### [facility] (DEFAULT) [address] [place] [address] 93115 RBC (Bld) [#/Vol] 4.65 10*6/uL Normal 4.38-5.83 [facility] Comment on above: Performed By: #### Chinedu Feliz, CHM7, HFP, IPB, MGO #### [facility] (DEFAULT) [address] [place] [address] 99045 RBC Distribution 13.9 % Normal 10.9-14.3 [facility] Comment on above: Performed By: #### Chinedu Feliz, CHM7, HFP, IPB, MGO #### [facility] (DEFAULT) [address] [place] [address] WBC (Bld) [#/Vol] 6.52 10*3/uL Normal 3.73-10.10 [facility] Comment on above: Performed By: #### C A, CHM7, HFP, IPB, MGO #### [facility] (DEFAULT) [address] [place] [address] CHEM 7 (LYTES,BUN,CREA,GLUC) on 09-10-2023 Anion gap [Moles/Vol] 13 mmol/L 7 - 17 mmol/L [facility] Chloride [Moles/Vol] 111 mmol/L High 98 - 10 8 mmol/L [facility] CO2 [Moles/Vol] 20 mmol/L Low 21 - 31 mmol/L [facility] Creatinine [Mass/Vol] 1.27 mg/dL 0.70 - 1.30 mg/dL [facility] eGFR, CKD-EPI, Male 69 - PINF [facility] Glucose [Mass/Vol] 100 mg/dL High 70 - 99 mg/dL [facility] Osmolality Calc [Osmolality] 293 [facility] Potassium [Moles/Vol] 4.4 mmol/L 3.5 - 5.0 mmol/L [facility] Sodium [Moles/Vol] 140 mmol/L 135 - 145 mmol/L [facility] Urea nitrogen [Mass/Vol] 12 mg/dL 7 - 25 mg/dL [facility] Urea nitrogen/Creatinine [Mass ratio] 9 mg/mg [facility] Anion gap [Moles/Vol] 13 mmol/L Normal 7-17 [facility] Comment on above: Performed By: #### C HM7, HFP, MGO #### [facility] (DEFAULT) [address] [place] [address] Chloride [Moles/Vol] 111 mmol/L High 98-108 [facility] Comment on above: Performed By: #### C HM7, HFP, MGO #### [facility] (DEFAULT) [address] [place] [address] 14068 CO2 [Moles/Vol] 20 mmol/L Low 21-31 [facility] Comment on above: Performed By: #### C HM7, HFP, MGO #### [facility] (DEFAULT) [address] [place] [address] 02973 Creatinine [Mass/Vol] 1.27 mg/dL Normal 0.70-1.30 [facility] Comment on above: Performed By: #### C HM7, HFP, MGO #### [facility] (DEFAULT) [address] [place] [address] 33205 GFR/1.73 sq M.predicted among non-blacks MDRD (S/P/Bld) [Vol rate/Area] 68 mL/min/{1.73_m2} Normal >=60 [facility] Comment on above: Result Comment: Repo rted eGFR is based on the CKD-EPI 2020 equation using creatinine, age, and sex. Performed By: #### C HM7, HFP, MGO #### [facility] (DEFAULT) [address] [place] [address] 43672 Glucose [Mass/Vol] 100 mg/dL High 70-99 [facility] Comment on above: Performed By: #### C HM7, HFP, MGO #### [facility] (DEFAULT) [address] [place] [address] 42766 Osmolality [Osmolality] 293 mosm/kg Normal 278-305 [facility] Comment on above: Performed By: #### C HM7, HFP, MGO #### [facility] (DEFAULT) [address] [place] [address] 48671 Potassium [Moles/Vol] 4.4 mmol/L Normal 3.5-5.0 [facility] Comment on above: Performed By: #### C HM7, HFP, MGO #### [facility] (DEFAULT) [address] [place] [address], [place] [address] Sodium [Moles/Vol] 140 mmol/L Normal 135-145 [facility] Comment on above: Performed By: #### C HM7, HFP, MGO #### [facility] (DEFAULT) [address] [place] [address] Urea nitrogen [Mass/Vol] 12 mg/dL Normal 7-25 [facility] Comment on above: Performed By: #### C HM7, HFP, MGO #### [facility] (DEFAULT) [address] [place] [address] Urea nitrogen/Creatinine [Mass ratio] 9 mg/mg Normal [facility] Comment on above: Performed By: #### C HM7, HFP, MGO #### [facility] (DEFAULT) [address] [place] [address] 88880 HEPATIC FUNCTION PANELon Albumin [Mass/Vol] 3.3 g/dL Low 3.5 - 5.0 g/dL [facility] ALP [Catalytic activity/Vol] 143 U/L High 32 - 126 U/L [facility] ALT [Catalytic activity/Vol] 28 U/L 10 - 52 U/L [facility] AST [Catalytic activity/Vol] 29 U/L 10 - 39 U/L [facility] Bilirubin [Mass/Vol] 0.9 mg/dL [facility] mg/dL [facility] Bilirubin.direct [Mass/Vol] 0.2 mg/dL NINF - 0.3 mg/dL [facility] Protein [Mass/Vol] 6.8 g/dL 6.4 - 8.3 g/dL [facility] Albumin [Mass/Vol] 3.3 g/dL Low 3.5-5.0 [facility] Comment on above: Performed By: #### C HM7, HFP, MGO #### [facility] (DEFAULT) [address] [place] [address] 18364 ALP [Catalytic activity/Vol] 143 U/L High 32-126 [facility] Comment on above: Performed By: #### C HM7, HFP, MGO #### [facility] (DEFAULT) [address] [place] [address] 47684 ALT [Catalytic activity/Vol] 28 U/L Normal 10-52 [facility] Comment on above: Performed By: #### C HM7, HFP, MGO #### [facility] (DEFAULT) [address] [place] [address] 56272 AST [Catalytic activity/Vol] 29 U/L Normal 10-39 [facility] Comment on above: Performed By: #### C HM7, HFP, MGO #### [facility] (DEFAULT) [address] [place] [address] 21322 Bilirubin [Mass/Vol] 0.9 mg/dL Normal <1.5 [facility] Comment on above: Performed By: #### C HM7, HFP, MGO #### [facility] (DEFAULT) [address] [place] [address] 79977 Bilirubin.indirect [Mass/Vol] 0.2 mg/dL Normal <0.3 [facility] Comment on above: Performed By: #### Chinedu HM7, HFP, MGO #### [facility] (DEFAULT) [address] [place] [address] 76919 Protein [Mass/Vol] 6.8 g/dL Normal 6.4-8.3 [facility] Comment on above: Performed By: #### C HM7, HFP, MGO #### [facility] (DEFAULT) [address] [place] [address] 18185 MAGNESIUMon 09-10-2023 Interpretation and review of laboratory results Normal [facility] Magnesium [Mass/Vol] 1.9 mg/dL 1.6 - 2 .6 mg/dL [facility] Magnesium [Mass/Vol] 1.9 mg/dL Normal 1.6-2.6 [facility] Comment on above: Performed By: #### C HM7, HFP, MGO #### [facility] (DEFAULT) [address] [place] [address] No Panel Informationon 09-10 Interpretation and review of laboratory results Abnormal [facility] TACROLIMUS LEVEL, TROUGH (DC E DRUG LEVEL)Ordered By: Jimy Castillo on 09-10-2023 Interpretation and review of laboratory results Normal [facility] Tacrolimus (Bld) [Mass/Vol] 11.8 ng/mL [facility] TACROLIMUS LEVEL, TROUGH (DC E DRUG LEVEL)on 09-10-2023 Tacrolimus, Trough 11.8 ng/mL Normal Bone Susana ow Transplant: 4.0-12.0, Therapeutic: 5.0-15.0 [facility] Comment on above: Order Comment: Pleas e draw at specified interval PRIOR to dose. Do not hold dose to wait for level. Specimens batched twice per day, (M-F) and once per day weekendsMethod performed is a chemiluminescent microparticle immunoasssay on the [employer] i2000.The range is based on experience at [facility] and users should be aware that target concentrations vary widely depending on concomitant therapy, time post-transplant, and desired degree of immunosuppression. Performed By: #### C 7, [facility], MGO #### [facility] (DEFAULT) [address] [place] [address] 74582 CHEM 7 (LYTES,BUN,CREA,GLUC) on 09-09-2023 Anion gap [Moles/Vol] 14 mmol/L 7 - 17 mmol/L [facility] Chloride [Moles/Vol] 113 mmol/L High 98 - 10 8 mmol/L [facility] CO2 [Moles/Vol] 18 mmol/L Low 21 - 31 mmol/L [facility] Creatinine [Mass/Vol] 1.03 mg/dL 0.70 - 1.30 mg/dL [facility] eGFR, CKD-EPI, Male 87 - PINF [facility] Glucose [Mass/Vol] 106 mg/dL High 70 - 99 mg/dL [facility] Interpretation and review of laboratory results Abnormal [facility] Osmolality Calc [Osmolality] 294 [facility] Potassium [Moles/Vol] 4.0 mmol/L 3.5 - 5.0 mmol/L [facility] Sodium [Moles/Vol] 141 mmol/L 135 - 145 mmol/L [facility] Urea nitrogen [Mass/Vol] 10 mg/dL 7 - 25 mg/dL [facility] Urea nitrogen/Creatinine [Mass ratio] 10 mg/mg [facility] MAGNESIUMon 09-09-2023 Magnesium [Mass/Vol] 1.6 mg/dL 1.6 - 2 .6 mg/dL [facility] No Panel Informationon 09-09 Interpretation and review of laboratory results Normal [facility] PHOSPHATE, INORGANICon 09-09 Phosphate [Mass/Vol] 3.8 mg/dL 2.2 - 4 .6 mg/dL [facility] TACROLIMUS LEVEL, TROUGH (DC E DRUG LEVEL)on 09-09-2023 Interpretation and review of laboratory results Normal [facility] Tacrolimus (Bld) [Mass/Vol] 9.2 ng/mL [facility] CBC,PLATELETSon 09-08-2023 Erythrocyte distribution width (RBC) [Ratio] 13.6 % 10.9 - 14.3 % [facility] Hematocrit (Bld) [Volume fraction] 36.1 % Low 39.6 - 48.8 % [facility] Hemoglobin (Bld) [Mass/Vol] 11.6 g/dL Low 13.4 - 16.8 g/dL [facility] Interpretation and review of laboratory results Abnormal [facility] MCH (RBC) [Entitic mass] 27.4 pg 26.1 - 33.3 pg [facility] MCHC (RBC) [Mass/Vol] 32.1 g/dL 31.9 - 36.5 g/dL [facility] MCV (RBC) [Entitic vol] 85.1 fL 79.0 - 94.5 fL [facility] Platelet mean volume (Bld) [Entitic vol] 9.5 fL 8.7 - 12.3 fL [facility] Platelets (Bld) [#/Vol] 182 10*3/uL 146 - 337 K/uL [facility] RBC (Bld) [#/Vol] 4.24 10*6/uL Low [facility] WBC (Bld) [#/Vol] 4.59 10*3/uL 3.73 - 10. 10 K/uL [facility] CHEM 7 (LYTES,BUN,CREA,GLUC) on 09-08-2023 Anion gap [Moles/Vol] 12 mmol/L 7 - 17 mmol/L [facility] Chloride [Moles/Vol] 113 mmol/L High 98 - 10 8 mmol/L [facility] CO2 [Moles/Vol] 21 mmol/L 21 - 31 mmol/L [facility] Creatinine [Mass/Vol] 1.14 mg/dL 0.70 - 1.30 mg/dL [facility] eGFR, CKD-EPI, Male 77 - PINF [facility] Glucose [Mass/Vol] 107 mg/dL High 70 - 99 mg/dL [facility] Osmolality Calc [Osmolality] 296 [facility] Potassium [Moles/Vol] 3.9 mmol/L 3.5 - 5.0 mmol/L [facility] Sodium [Moles/Vol] 142 mmol/L 135 - 145 mmol/L [facility] Urea nitrogen [Mass/Vol] 11 mg/dL 7 - 25 mg/dL [facility] Urea nitrogen/Creatinine [Mass ratio] 10 mg/mg [facility] HEPATIC FUNCTION PANELon Albumin [Mass/Vol] 2.9 g/dL Low 3.5 - 5.0 g/dL [facility] ALP [Catalytic activity/Vol] 133 U/L High 32 - 126 U/L [facility] ALT [Catalytic activity/Vol] 23 U/L 10 - 52 U/L [facility] AST [Catalytic activity/Vol] 23 U/L 10 - 39 U/L [facility] Bilirubin [Mass/Vol] 0.8 mg/dL NINF - 1.5 mg/dL [facility] Bilirubin.direct [Mass/Vol] 0.2 mg/dL NINF - 0.3 mg/dL [facility] Protein [Mass/Vol] 5.9 g/dL Low 6.4 - 8.3 g/dL [facility] MAGNESIUMon 09-08-2023 Interpretation and review of laboratory results Normal [facility] Magnesium [Mass/Vol] 1.8 mg/dL 1.6 - 2 .6 mg/dL [facility] No Panel Informationon 09-08 Interpretation and review of laboratory results Abnormal [facility] PHOSPHATE, INORGANICon 09-08 Interpretation and review of laboratory results Normal [facility] Phosphate [Mass/Vol] 4.1 mg/dL 2.2 - 4 .6 mg/dL [facility] TACROLIMUS LEVEL, TROUGH (DC E DRUG LEVEL)on 09-08-2023 Interpretation and review of laboratory results Normal [facility] Tacrolimus (Bld) [Mass/Vol] 8.5 ng/mL [facility] CBC,PLATELETSon 09-07-2023 Erythrocyte distribution width (RBC) [Ratio] 13.5 % 10.9 - 14.3 % [facility] Hematocrit (Bld) [Volume fraction] 37.1 % Low 39.6 - 48.8 % [facility] Hemoglobin (Bld) [Mass/Vol] 11.9 g/dL Low 13.4 - 16.8 g/dL [facility] Interpretation and review of laboratory results Abnormal [facility] MCH (RBC) [Entitic mass] 27.7 pg 26.1 - 33.3 pg [facility] MCHC (RBC) [Mass/Vol] 32.1 g/dL 31.9 - 36.5 g/dL [facility] MCV (RBC) [Entitic vol] 86.5 fL 79.0 - 94.5 fL [facility] Platelet mean volume (Bld) [Entitic vol] 9.6 fL 8.7 - 12.3 fL [facility] Platelets (Bld) [#/Vol] 176 10*3/uL 146 - 337 K/uL [facility] RBC (Bld) [#/Vol] 4.29 10*6/uL Low [facility] WBC (Bld) [#/Vol] 4.10 10*3/uL 3.73 - 10. 10 K/uL [facility] CHEM 7 (LYTES,BUN,CREA,GLUC) on 09-07-2023 Anion gap [Moles/Vol] 13 mmol/L 7 - 17 mmol/L [facility] Chloride [Moles/Vol] 113 mmol/L High 98 - 10 8 mmol/L [facility] CO2 [Moles/Vol] 19 mmol/L Low 21 - 31 mmol/L [facility] Creatinine [Mass/Vol] 1.22 mg/dL 0.70 - 1.30 mg/dL [facility] eGFR, CKD-EPI, Male 71 - PINF [facility] Glucose [Mass/Vol] 107 mg/dL High 70 - 99 mg/dL [facility] Osmolality Calc [Osmolality] 295 [facility] Potassium [Moles/Vol] 3.9 mmol/L 3.5 - 5.0 mmol/L [facility] Sodium [Moles/Vol] 141 mmol/L 135 - 145 mmol/L [facility] Urea nitrogen [Mass/Vol] 13 mg/dL 7 - 25 mg/dL [facility] Urea nitrogen/Creatinine [Mass ratio] 11 mg/mg [facility] HEPATIC FUNCTION PANELon Albumin [Mass/Vol] 2.9 g/dL Low 3.5 - 5.0 g/dL [facility] ALP [Catalytic activity/Vol] 111 U/L 32 - 126 U/L [facility] ALT [Catalytic activity/Vol] 18 U/L 10 - 52 U/L [facility] AST [Catalytic activity/Vol] 23 U/L 10 - 39 U/L [facility] Bilirubin [Mass/Vol] 0.8 mg/dL NINF - 1.5 mg/dL [facility] Bilirubin.direct [Mass/Vol] 0.3 mg/dL High NINF - 0.3 mg/dL [facility] Protein [Mass/Vol] 6.0 g/dL Low 6.4 - 8.3 g/dL [facility] MAGNESIUMon 09-07-2023 Interpretation and review of laboratory results Normal [facility] Magnesium [Mass/Vol] 1.7 mg/dL 1.6 - 2 .6 mg/dL [facility] No Panel Informationon 09-07 Interpretation and review of laboratory results Abnormal [facility] PHOSPHATE, INORGANICon 09-07 Interpretation and review of laboratory results Normal [facility] Phosphate [Mass/Vol] 4.4 mg/dL 2.2 - 4 .6 mg/dL [facility] TACROLIMUS LEVEL, TROUGH (DC E DRUG LEVEL)Ordered By: Elizabeth Maldonado on 09-07-2023 Interpretation and review of laboratory results Normal [facility] Tacrolimus (Bld) [Mass/Vol] 7.8 ng/mL [facility] CBC,PLATELETSon 09-06-2023 Erythrocyte distribution width (RBC) [Ratio] 13.4 % 10.9 - 14.3 % [facility] Hematocrit (Bld) [Volume fraction] 38.4 % Low 39.6 - 48.8 % [facility] Hemoglobin (Bld) [Mass/Vol] 11.9 g/dL Low 13.4 - 16.8 g/dL [facility] Interpretation and review of laboratory results Abnormal [facility] MCH (RBC) [Entitic mass] 26.6 pg 26.1 - 33.3 pg [facility] MCHC (RBC) [Mass/Vol] 31.0 g/dL Low 31.9 - 36.5 g/dL [facility] [facility] MCV (RBC) [Entitic vol] 85.9 fL 79.0 - 94.5 fL [facility] Platelet mean volume (Bld) [Entitic vol] 9.7 fL 8.7 - 12.3 fL [facility] Platelets (Bld) [#/Vol] 181 10*3/uL 146 - 337 K/uL [facility] RBC (Bld) [#/Vol] 4.47 10*6/uL [facility] WBC (Bld) [#/Vol] 4.41 10*3/uL 3.73 - 10. 10 K/uL [facility] CHEM 7 (LYTES,BUN,CREA,GLUC) on 09-06-2023 Anion gap [Moles/Vol] 14 mmol/L 7 - 17 mmol/L [facility] Chloride [Moles/Vol] 109 mmol/L High 98 - 10 8 mmol/L [facility] CO2 [Moles/Vol] 19 mmol/L Low 21 - 31 mmol/L [facility] Creatinine [Mass/Vol] 1.26 mg/dL 0.70 - 1.30 mg/dL [facility] eGFR, CKD-EPI, Male 70 - PINF [facility] Glucose [Mass/Vol] 114 mg/dL High 70 - 99 mg/dL [facility] Osmolality Calc [Osmolality] 291 [facility] Potassium [Moles/Vol] 4.1 mmol/L 3.5 - 5.0 mmol/L [facility] Sodium [Moles/Vol] 138 mmol/L 135 - 145 mmol/L [facility] Urea nitrogen [Mass/Vol] 16 mg/dL 7 - 25 mg/dL [facility] Urea nitrogen/Creatinine [Mass ratio] 13 mg/mg [facility] HEPATIC FUNCTION PANELon Albumin [Mass/Vol] 3.0 g/dL Low 3.5 - 5.0 g/dL [facility] ALP [Catalytic activity/Vol] 115 U/L 32 - 126 U/L [facility] ALT [Catalytic activity/Vol] 25 U/L 10 - 52 U/L [facility] AST [Catalytic activity/Vol] 31 U/L 10 - 39 U/L [facility] Bilirubin [Mass/Vol] 1.0 mg/dL NINF - 1.5 mg/dL [facility] Bilirubin.direct [Mass/Vol] 0.3 mg/dL High NINF - 0.3 mg/dL [facility] Protein [Mass/Vol] 6.3 g/dL Low 6.4 - 8.3 g/dL [facility] MAGNESIUMon 09-06-2023 Interpretation and review of laboratory results Normal [facility] Magnesium [Mass/Vol] 2.0 mg/dL 1.6 - 2 .6 mg/dL [facility] No Panel Informationon 09-06 Interpretation and review of laboratory results Abnormal [facility] TACROLIMUS LEVEL, TROUGH (DC E DRUG LEVEL)on 09-06-2023 Interpretation and review of laboratory results Normal [facility] Tacrolimus (Bld) [Mass/Vol] 6.7 ng/mL [facility] CBC,PLATELETSon 09-05-2023 Erythrocyte distribution width (RBC) [Ratio] 13.5 % 10.9 - 14.3 % [facility] Hematocrit (Bld) [Volume fraction] 35.6 % Low 39.6 - 48.8 % [facility] Hemoglobin (Bld) [Mass/Vol] 11.4 g/dL Low 13.4 - 16.8 g/dL [facility] Interpretation and review of laboratory results Abnormal [facility] MCH (RBC) [Entitic mass] 27.5 pg 26.1 - 33.3 pg [facility] MCHC (RBC) [Mass/Vol] 32.0 g/dL 31.9 - 36.5 g/dL [facility] MCV (RBC) [Entitic vol] 86.0 fL 79.0 - 94.5 fL [facility] Platelet mean volume (Bld) [Entitic vol] 10.0 fL 8.7 - 12.3 fL [facility] Platelets (Bld) [#/Vol] 170 10*3/uL 146 - 337 K/uL [facility] RBC (Bld) [#/Vol] 4.14 10*6/uL Low [facility] WBC (Bld) [#/Vol] 4.24 10*3/uL 3.73 - 10. 10 K/uL [facility] CHEM 7 (LYTES,BUN,CREA,GLUC) on 09-05-2023 Anion gap [Moles/Vol] 12 mmol/L 7 - 17 mmol/L [facility] Chloride [Moles/Vol] 107 mmol/L 98 - 10 8 mmol/L [facility] CO2 [Moles/Vol] 20 mmol/L Low 21 - 31 mmol/L [facility] Creatinine [Mass/Vol] 1.43 mg/dL High 0.70 - 1.30 mg/dL [facility] eGFR, CKD-EPI, Male 60 Low - PINF [facility] Glucose [Mass/Vol] 111 mg/dL High 70 - 99 mg/dL [facility] Osmolality Calc [Osmolality] 286 [facility] Potassium [Moles/Vol] 4.2 mmol/L 3.5 - 5.0 mmol/L [facility] Sodium [Moles/Vol] 135 mmol/L 135 - 145 mmol/L [facility] Urea nitrogen [Mass/Vol] 18 mg/dL 7 - 25 mg/dL [facility] Urea nitrogen/Creatinine [Mass ratio] 13 mg/mg [facility] CONTINUOUS CARDIAC MONITORIN G STRIPon 09-05-2023 [facility] HEPATIC FUNCTION PANELon Albumin [Mass/Vol] 2.8 g/dL Low 3.5 - 5.0 g/dL [facility] ALP [Catalytic activity/Vol] 103 U/L 32 - 126 U/L [facility] ALT [Catalytic activity/Vol] 26 U/L 10 - 52 U/L [facility] AST [Catalytic activity/Vol] 38 U/L 10 - 39 U/L [facility] Bilirubin [Mass/Vol] 0.9 mg/dL NINF - 1.5 mg/dL [facility] Bilirubin.direct [Mass/Vol] 0.1 mg/dL NINF - 0.3 mg/dL [facility] Protein [Mass/Vol] 6.1 g/dL Low 6.4 - 8.3 g/dL [facility] HISTOPLASMA ANTIGEN, FLUIDon 09-05-2023 FH SOURCE BAL RML [facility] Histo FLD interpretation Negative [facility] Histoplasma Antigen, FLUID Not detected ng/mL [facility] HISTOPLASMA CAPSULATUM/BLAST OMYCES SPECIES,PCR FLUIDon 09-05-2023 HISTO/BLASTO RESULT Negative Not Applicable [facility] Specimen source Nom (Unsp spec) BAL RML [facility] IMMUNOPHENOTYPING, TISSUE/FL UIDon 09-05-2023 BKR DX CODE Use Ordering [facility] Flow Interpretation See Comment [facility] Flow Interpreted by: Yossi Perla MD, PhD [facility] MAGNESIUMon 09-05-2023 Interpretation and review of laboratory results Normal [facility] Magnesium [Mass/Vol] 1.7 mg/dL 1.6 - 2 .6 mg/dL [facility] No Panel Informationon 09-05 Interpretation and review of laboratory results Abnormal [facility] TACROLIMUS LEVEL, TROUGH (DC E DRUG LEVEL)Ordered By: Raymundo Mehta on 09-05-2023 Interpretation and review of laboratory results Normal [facility] Tacrolimus (Bld) [Mass/Vol] 5.3 ng/mL [facility] ARTERIAL BLOOD GAS (FULL GOSS EL)on 09-04-2023 Base excess Calc (Bld) [Moles/Vol] -1.2000 mmol/L -3.0 - 3.0 mmol/L [facility] Calcium.ionized (Bld) [Mass/Vol] 4.79 mg/dL 4.60 - 5.30 mg/dL [facility] Carboxyhemoglobin (Bld) [Mass fraction] 0.7 % NINF - 1.5 % [facility] CO2 (Bld) [Partial pressure] 30 mm[Hg] Low [facility] Glucose [Mass/Vol] 159 mg/dL High 70 - 99 mg/dL [facility] HCO3 (Bld) [Moles/Vol] 22 mmol/L 22 - 28 mmol/L [facility] Hematocrit (Bld) [Volume fraction] 38.0 % Low 40.2 - 50.4 % [facility] Hemoglobin (Bld) [Mass/Vol] 12.6 g/dL Low 13.4 - 16.8 g/dL [facility] Interpretation and review of laboratory results Abnormal [facility] Lactate [Moles/Vol] 2.0 mmol/L High 0.5 - 1. 6 mmol/L [facility] Methemoglobin (Bld) [Mass fraction] 0.0 % NINF - 1.5 % [facility] Oxygen (Bld) [Partial pressure] 62 mm[Hg] Low [facility] Oxygen saturation in Blood 92 % Low 94 - 98 % [facility] Oxyhemoglobin 91 % Low 94 - 98 % [facility] pH (Bld) 7.48 [pH] High 7.35 - 7.45 [facility] Potassium [Moles/Vol] 4.2 mmol/L 3.5 - 5.0 mmol/L [facility] Sodium [Moles/Vol] 130 mmol/L Low 135 - 145 mmol/L [facility] Specimen source Nom (Unsp spec) Arterial [facility] Bacteria identified Respirat ory culture Nom (Unsp spec)on 09-04-2023 Bacteria identified Cx Nom (Unsp spec) NO GROWTH DAY 2 OF 2 [facility] Microscopic observation Other stain Nom (Unsp spec) Cytocentrifuge preparation [facility] Microscopic observation Other stain Nom (Unsp spec) Neutrophils, Rare [facility]sc[facility] Other stain Nom (Unsp spec) Red Blood Cells Present [facility] Microscopic observation Other stain Nom (Unsp spec) [facility] Bacteria identified Respirat ory culture Nom (Unsp spec)Ordered By: Jose Salgado on 09-04-2023 Bacteria identified Cx Nom (Unsp spec) NO GROWTH DAY 2 OF 2 [facility] Microscopic observation Other stain Nom (Unsp spec) Cytocentrifuge preparation [facility] Microscopic observation Other stain Nom (Unsp spec) Neutrophils, Moderate [facility] Microscopic observation Other stain Nom (Unsp spec) Red Blood Cells Present [facility] Microscopic observation Other stain Nom (Unsp spec) No organisms seen [facility] CBC,PLATELETSon 09-04-2023 Erythrocyte distribution width (RBC) [Ratio] 13.2 % 10.9 - 14.3 % [facility] Hematocrit (Bld) [Volume fraction] 38.7 % Low 39.6 - 48.8 % [facility] Hemoglobin (Bld) [Mass/Vol] 12.3 g/dL Low 13.4 - 16.8 g/dL [facility] Interpretation and review of laboratory results Abnormal [facility] MCH (RBC) [Entitic mass] 27.9 pg 26.1 - 33.3 pg [facility] MCHC (RBC) [Mass/Vol] 31.8 g/dL Low 31.9 - 36.5 g/dL [facility] MCV (RBC) [Entitic vol] 87.8 fL 79.0 - 94.5 fL [facility] Platelet mean volume (Bld) [Entitic vol] 9.8 fL 8.7 - 12.3 fL [facility] Platelets (Bld) [#/Vol] 173 10*3/uL 146 - 337 K/uL [facility] RBC (Bld) [#/Vol] 4.41 10*6/uL [facility] WBC (Bld) [#/Vol] 4.57 10*3/uL 3.73 - 10. 10 K/uL [facility] CHEM 7 (LYTES,BUN,CREA,GLUC) on 09-04-2023 Anion gap [Moles/Vol] 16 mmol/L 7 - 17 mmol/L [facility] Chloride [Moles/Vol] 104 mmol/L 98 - 10 8 mmol/L [facility] CO2 [Moles/Vol] 18 mmol/L Low 21 - 31 mmol/L [facility] Creatinine [Mass/Vol] 1.22 mg/dL 0.70 - 1.30 mg/dL [facility] eGFR, CKD-EPI, Male 71 - PINF [facility] Glucose [Mass/Vol] 124 mg/dL High 70 - 99 mg/dL [facility] Osmolality Calc [Osmolality] 284 [facility] Potassium [Moles/Vol] 3.9 mmol/L 3.5 - 5.0 mmol/L [facility] Sodium [Moles/Vol] 134 mmol/L Low 135 - 145 mmol/L [facility] Urea nitrogen [Mass/Vol] 15 mg/dL 7 - 25 mg/dL [facility] Urea nitrogen/Creatinine [Mass ratio] 12 mg/mg [facility] CMV PCR,FLUIDS,URINE,EYE ETC on 09-04-2023 Specimen source Nom (Unsp spec) BAL LLL [facility] Specimen source Nom (Unsp spec) BAL RML [facility] HEPATIC FUNCTION PANELon Albumin [Mass/Vol] 3.0 g/dL Low 3.5 - 5.0 g/dL [facility] ALP [Catalytic activity/Vol] 112 U/L 32 - 126 U/L [facility] ALT [Catalytic activity/Vol] 22 U/L 10 - 52 U/L [facility] AST [Catalytic activity/Vol] 30 U/L 10 - 39 U/L [facility] Bilirubin [Mass/Vol] 1.2 mg/dL NINF - 1.5 mg/dL [facility] Bilirubin.direct [Mass/Vol] 0.4 mg/dL High NINF - 0.3 mg/dL [facility] Protein [Mass/Vol] 6.4 g/dL 6.4 - 8.3 g/dL [facility] LEGIONELLA PCRon 09-04-2023 Legionella sp rRNA Probe Ql (Unsp spec) Negative Not Applicable [facility] Specimen source Nom (Unsp spec) BAL RML [facility] Laboratory - Microbiology an d Antimicrobial susceptibilityon 09-04-2023 CMV DNA ESTELITA+probe Ql (Unsp spec) Negative Negative [facility] MAGNESIUMon 09-04-2023 Magnesium [Mass/Vol] 1.4 mg/dL Low 1.6 - 2 .6 mg/dL [facility] No Panel Informationon 09-04 Annotation comment [Interpretation] Narrative DNR [facility] PN Report Status DNR [facility] Pneumocystis jiroveci,PCR result Negative Not Applicable [facility] Interpretation and review of laboratory results Abnormal [facility] PNEUMOCYSTIS JIROVECI,PCRon 09-04-2023 Specimen source Nom (Unsp spec) BAL LLL [facility] Specimen source Nom (Unsp spec) BAL RML [facility] Portable XR Chest Viewson RADIOLOGY RADIOLOGY [facility] Radiology Study observation (narrative) [facility] Portable XR Chest ViewsOrder ed By: Joanie Nugent on 09-04-2023 [facility] Work Phone: TACROLIMUS LEVEL, TROUGH (DC E DRUG LEVEL)on 09-04-2023 Interpretation and review of laboratory results Abnormal [facility] Tacrolimus (Bld) [Mass/Vol] 3.6 ng/mL Low [facility] ASPERGILLUS ANTIGEN, BALon 1 Galactomannan Ag IA Qn (Unsp spec) <0.500 NINF [facility] Galactomannan Ag IA Qn (Unsp spec) <0.500 NINF [facility] BAL CONSULTOrdered By: Noa Peralta on 09-03-2023 ALVEOLAR MACROPHAGES 32 % [facility] Work Phone: Bal comments Correlation with microbiology stains and cultures is recommended. [facility] Work Phone: Bal Diff Quik Stain Quality Check Acceptable [facility] Work Phone: BKR BAL INTERPRETATION Cellular specimen comprised of alveolar macrophages and small lymphocytes. No definitive microorganisms are observed. Moderate degenerative changes. [facility] Work Phone: BKR DX CODE Use Ordering [facility] Work Phone: Eosinophils Patterson stain Ql (Unsp spec) 0 % [facility] Work Phone: Lymphocytes/100 WBC (Bld) 57 % [facility] Work Phone: Neutrophils/100 WBC Manual cnt (Bronch spec) 11 % [facility] Work Phone: Pathologist review Jame (Unsp spec) [Interp] Leonardo Peralta MD [facility] Work Phone: [facility] Work Phone: BAL CONSULTon 09-03-2023 ALVEOLAR MACROPHAGES 33 % [facility] Bal comments Correlation with microbiology stains and cultures is recommended. Correlation with viral studies is recommended. [facility] Bal Diff Quik Stain Quality Check Acceptable [facility] BKR BAL INTERPRETATION Cellular specimen comprised of alveolar macrophages and small lymphocytes. No definitive microorganisms are observed. Rare degenerating cells with changes suggestive of viral cytopathic effect are noted. Moderate degenerative changes. [facility] BKR DX CODE Use Ordering [facility] Eosinophils Patterson stain Ql (Unsp spec) 0 % [facility] Lymphocytes/100 WBC (Bld) 49 % [facility] Neutrophils/100 WBC Manual cnt (Bronch spec) 18 % [facility] Pathologist review Jame (Unsp spec) [Interp] Leonardo Peralta MD [facility] BRONCHOSCOPYon 09-03-2023 LAB, [facility] CBC,PLATELETSon 09-03-2023 Erythrocyte distribution width (RBC) [Ratio] 13.4 % 10.9 - 14.3 % [facility] Hematocrit (Bld) [Volume fraction] 39.6 % 39.6 - 48.8 % [facility] Hemoglobin (Bld) [Mass/Vol] 12.8 g/dL Low 13.4 - 16.8 g/dL [facility] Interpretation and review of laboratory results Abnormal [facility] MCH (RBC) [Entitic mass] 27.8 pg 26.1 - 33.3 pg [facility] MCHC (RBC) [Mass/Vol] 32.3 g/dL 31.9 - 36.5 g/dL [facility] MCV (RBC) [Entitic vol] 85.9 fL 79.0 - 94.5 fL [facility] Platelet mean volume (Bld) [Entitic vol] 9.4 fL 8.7 - 12.3 fL [facility] Platelets (Bld) [#/Vol] 222 10*3/uL 146 - 337 K/uL [facility] RBC (Bld) [#/Vol] 4.61 10*6/uL [facility] WBC (Bld) [#/Vol] 4.36 10*3/uL 3.73 - 10. 10 K/uL [facility] CHEM 7 (LYTES,BUN,CREA,GLUC) on 09-03-2023 Anion gap [Moles/Vol] 12 mmol/L 7 - 17 mmol/L [facility] Chloride [Moles/Vol] 104 mmol/L 98 - 10 8 mmol/L [facility] CO2 [Moles/Vol] 24 mmol/L 21 - 31 mmol/L [facility] Creatinine [Mass/Vol] 1.20 mg/dL 0.70 - 1.30 mg/dL [facility] eGFR, CKD-EPI, Male 73 - PINF [facility] Glucose [Mass/Vol] 112 mg/dL High 70 - 99 mg/dL [facility] Osmolality Calc [Osmolality] 288 [facility] Potassium [Moles/Vol] 4.1 mmol/L 3.5 - 5.0 mmol/L [facility] Sodium [Moles/Vol] 136 mmol/L 135 - 145 mmol/L [facility] Urea nitrogen [Mass/Vol] 17 mg/dL 7 - 25 mg/dL [facility] Urea nitrogen/Creatinine [Mass ratio] 14 mg/mg [facility] CYTOLOGY, NON-GYNOrdered By: Sherice Jimenez on 09-03-2023 CYTOLOGIC DIAGNOSIS f7ebaYFsNDRfxTRyYAIvE1 brqxUhDLXriEZuL2Wphdip XQjrHH1mVF5twMwvvUCtlA KkFKHrAhDqo7iil057fXPn q1tpKVONwjnquEj2a1qxSK WXiP5zb6p4dP86ZGWksT9y dGJsIDtccmVkMFxncmVlbj HpNkh3DUQ3bDihEdkktXO7 aOAckTJ0CZkml6LxsTcpgC dsRGC9QKLvMabtWLopzXD3 hFFjsSnysEUeTY9uq6kgdG V6nxLwIBQ4dXjhsAQ0pXqy ejhif5zayKM2nDE8UCrpqO R3BAaoSrIfO8jvJBFptS4r A38pZ4hqVUOefOfaBYppQZ UwsND2MOG2DZOys9wvFBJg gAFnpGRdDuLvOMwmExk8r9 goGRAxoB86wWKevlF0yBzy HWorcZG7QO29KJbhd3UtWB TfkHqmNTWpkX9eKhEsJXyt dmVsbmZjbjIzXGxldmVsam BdDRjlitMlv9HqncUbdFF7 RHhmxcCjlCD2kQbtUVBdN1 K0A986AIzvvtKwpvXrWrFf sjx5BGQstCcqyFyhrDvmyx VsXGxldmVsbmZjMjNcbGV2 AIikDuVxXmOerUQ9EKycQa BmmVX5KFssoCJvrZT2WYly cJO5KGz6COt3JYibIFxrPy a5iTcokNG8GOpymX2aGESd E12jXwG3h9wneEF6bYC1EJ srlSH8YSjnDwRvF3akZIQi jN4cX56lY1hgWXYojLifRV wqFSXmvDC7NQD9TNSkc0ne ZXZlbHRleHRcJzAxXCdiNz a6w6kzGLZpvK23hZKihaU2 lSouMZ88SYohd3XeKEInqA ckGWAfkX2yUqJeKEvnkuPc bmZjbjIzXGxldmVsamMwXG okjhVeu9BgldQlyRB3ZBzr kvVdvRD7sQvhTYJlG4I7L7 50XWjagwNvaeMmEnGkhwu5 XGYxfXtcbGlzdGxldmVsXG suswVwknMaWzJqmKM0QOas GaHzJhHlwMZ5OOneNfHmvT N1XEtuhWTvoNB0GRtrkHJ5 DUr8EOp5MSueQDgtNbb7rB golJQ7CLdqzC2iHDApK64u SeS9d8knpIT1wWD9LFyghA J2OWltSwNoB0gdXUDxxX8g W60qD7nkHBSehVwsLVsuHC EgwLT2UDT1WLLvd4jbLQMx dAOkjIJrXzMhGEjhNkz4b7 toVGFmsE88jBDwopB6pWac WV09WMqyv7CeKVLtfLonID AyrW2tVdCoMRxsmiXnptNu bjIzXGxldmVsamMwXGxldm Uzx8GpfnNwzUQ2VTlafhFj nKV9hGnuOUWbO6S4Y720MY ikrdYiabYwJxOyxwv9UCGo fXtcbGlzdGxldmVsXGxldm FwixTqIwVxhXP9EDnlFnNz TfUqjRT2WEhiWaOnmJF7QC thjDKezFL9OQbxwRS1HQm1 BSw2WFtkYXmcFlf3nSlroM S8BZafzH6aCNEvL69rWfD5 cZ90KCjkjWaqcC07JODhzT HubEHbaBB0NHznfVgdkB75 XHAgfICmEAzgj4EkPDFnWd K0WJM9JDGyoJnonR71LVIv yJDyY349nyZfPTziEC22YC BhcGVydzEyMjQwXHBhcGVy eDE4YUFvMF8lmtvcUHkgIO vgOZJsukL5AFFoiAScD3Eb COGsSR9uwzmfNWD3BLwhTL XnDVN4AlFlKWCgb1Qqubz7 CxNzzQt9n3vmVHHkCHPgwB eky4myRYF1YEYovPRfM7nq gD5pFDXoZU7gdzmgn1rePS wnJNyzSOUudOP4fmY7QBFv fYMbF4AapX0kTUErMPBpkm OukNhddE5cUbituiQmUKBz CLEAAlGMWm5RY5qCJWeLBS 9MQVIgTEFWQUdFLCBMRUZU XWcHY1DGINqREjCjKMVqRS DvP3cTP5eFK9iwPydqPnNt YCrcKJFrIeOrX9CwESHpmx rdLQWsWFPXQB7HYVYLSNJF Wf0EKAU2JLHiutcxjAW9IX zrhnBraZg7pIIdtVgfqT0r YlxmczIyXGNmMSBObyBNYW gmE03gpeSgP3HkqISfBRQn UYhqZT60xAFuHSQkrBYwXC w7oJ9gPLlbaHyilwEYlIRk tV0hexroLNpgEiFzhPCwLV xpMFxsczBccGFyfQ== [facility] Work Phone: Case Report [facility] Work Phone: Clinical History j8xkjOXaUFKluODhLFVa M1 vuetKeRGIdmLPsL1Hwfflz BPloBO7hJA2itHhwsEZhgO GiCBRdMpCxo3srx535hCKt i8ptLSLBxboddMc0nKhqV6 1hf2W1AglwH8smDGEaJZxx BNGzXKkpcIYjTWl9TUWaaL VydzEyMjQwXHBhcGVyaDE1 UNQgNC1vupeqMMxnHEyeBS BugkH0ULCxgOTuX1KbZJZs DV6rjskpWUA3QKlpNNIzSZ A4FcFvCNDvi6Vvmjv2ClNk mIl1d7xpVJLlGACwoGrrf2 llTGS5UFChiTEoM6pnvK9s YRSxLO2ynrvfa2qjTTwcLG nyEACohDZ3ciB6WTMluULv S6WprK3kZMSyILBacvEfsL sgxN2qUcMvWIwrOcYsWiTn EUnujCXqhqMwgEHwpP1vMD Bhcn0= [facility] Work Phone: For Immediate Release to Patient's MyChart? Yes Yes [facility] Work Phone: Gross Description q3rkrDQpDZTpgYXoPNNv M1 mgdlLlKFCmgVVjO1Vrvkvn HUekVG3xST7djVnwkZHxqD YiADCsRdQyp9gas174wITe t8zyUMTGmofdlPh1jAazQ2 7jg3R8ZhpkV00eoBHgYHM0 PZPpRESffAYxNOSpDBQ7YM CkwGOwZ2irTZTdTL7qtlxj ZStpESlnEFYfzMZ9VWKjdU KaC3TqYQNxLDkgKMDhosc1 JjFbTk6reVItvPkhSHyeNG JkXHBsYWluXGZzMjAgTExM IEJBTFxwYXIgMSBtbCBoYX i8DMMfvU4jlNJhveWmoGBc jJ2ekDcnOPnxNLEhINJXIY OsbKlgJEAFYMDbr7HwjH2k cGFyXHBhcmRccGFyXHBhcn 0= [facility] Work Phone: [facility] Work Phone: HEPATIC FUNCTION PANELon Albumin [Mass/Vol] 3.2 g/dL Low 3.5 - 5.0 g/dL [facility] ALP [Catalytic activity/Vol] 118 U/L 32 - 126 U/L [facility] ALT [Catalytic activity/Vol] 25 U/L 10 - 52 U/L [facility] AST [Catalytic activity/Vol] 32 U/L 10 - 39 U/L [facility] Bilirubin [Mass/Vol] 1.0 mg/dL NINF - 1.5 mg/dL [facility] Bilirubin.direct [Mass/Vol] 0.3 mg/dL High NINF - 0.3 mg/dL [facility] Protein [Mass/Vol] 6.5 g/dL 6.4 - 8.3 g/dL [facility] HISTOPLASMA AND BLASTOMYCES ANTIGEN, ENZYME IMMUNOASSAY, SERMon 09-03-2023 Histoplasma/Blastomyce s Ag Result Detected Critically abnormal Not Detected [facility] Histoplasma/Blastomyce s Ag Value 5.3 ng/mL [facility] Interpretation and review of laboratory results Abnormal [facility] MAGNESIUMon 09-03-2023 Interpretation and review of laboratory results Normal [facility] Magnesium [Mass/Vol] 1.6 mg/dL 1.6 - 2 .6 mg/dL [facility] No Panel Informationon 09-03 Interpretation and review of laboratory results Abnormal [facility] PARVOVIRUS (B19) DNA, PCR, B SMITHAODon 09-03-2023 PARVOVIRUS B19 BY RAPID PCR Not detected Not Detected [facility] DC SPEC SOURCE Whole Blood [facility] Portable XR Chest Viewson RADIOLOGY RADIOLOGY [facility] Radiology Study observation (narrative) [facility] Portable XR Chest ViewsOrder ed By: [place] on 09-03-2023 [facility] Work Phone: ASPERGILLUS (GALACTOMANNAN), ANTIGENon 09-02-2023 Galactomannan Ag IA Qn <0.500 NINF [facility] ATYPICAL BACTERIAL PNEUMONIA ,PCROrdered By: Shari Contreras on 09-02-2023 B. parapertussis DNA ESTELITA+probe Ql (Unsp spec) Not detected Not Detected [facility] B. pertussis DNA ESTELITA+probe Ql (Unsp spec) Not detected Not Detected [facility] C. pneumoniae DNA ESTELITA+probe Ql (Unsp spec) Not detected Not Detected [facility] Interpretation and review of laboratory results Normal [facility] M. pneumoniae DNA ESTELITA+probe Ql (Unsp spec) Not detected Not Detected [facility] BRONCHOSCOPYon 09-02-2023 Radiology Study observation (narrative) [facility] Bacteria identified Cx Nom ( Bld)on 09-02-2023 Bacteria identified Cx Nom (Unsp spec) NO GROWTH DAY 5 OF 5 [facility] CBC,PLATELETSon 09-02-2023 Erythrocyte distribution width (RBC) [Ratio] 13.2 % 10.9 - 14.3 % [facility] Hematocrit (Bld) [Volume fraction] 39.9 % 39.6 - 48.8 % [facility] Hemoglobin (Bld) [Mass/Vol] 12.9 g/dL Low 13.4 - 16.8 g/dL [facility] Interpretation and review of laboratory results Abnormal [facility] MCH (RBC) [Entitic mass] 27.9 pg 26.1 - 33.3 pg [facility] MCHC (RBC) [Mass/Vol] 32.3 g/dL 31.9 - 36.5 g/dL [facility] [facility] MCV (RBC) [Entitic vol] 86.4 fL 79.0 - 94.5 fL [facility] Platelet mean volume (Bld) [Entitic vol] 9.5 fL 8.7 - 12.3 fL [facility] Platelets (Bld) [#/Vol] 210 10*3/uL 146 - 337 K/uL [facility] RBC (Bld) [#/Vol] 4.62 10*6/uL [facility] WBC (Bld) [#/Vol] 4.12 10*3/uL 3.73 - 10. 10 K/uL [facility] CHEM 7 (LYTES,BUN,CREA,GLUC) on 09-02-2023 Anion gap [Moles/Vol] 13 mmol/L 7 - 17 mmol/L [facility] Chloride [Moles/Vol] 105 mmol/L 98 - 10 8 mmol/L [facility] CO2 [Moles/Vol] 22 mmol/L 21 - 31 mmol/L [facility] Creatinine [Mass/Vol] 1.25 mg/dL 0.70 - 1.30 mg/dL [facility] eGFR, CKD-EPI, Male 69 - PINF [facility] Glucose [Mass/Vol] 105 mg/dL High 70 - 99 mg/dL [facility] Osmolality Calc [Osmolality] 287 [facility] Potassium [Moles/Vol] 4.3 mmol/L 3.5 - 5.0 mmol/L [facility] Sodium [Moles/Vol] 136 mmol/L 135 - 145 mmol/L [facility] Urea nitrogen [Mass/Vol] 16 mg/dL 7 - 25 mg/dL [facility] Urea nitrogen/Creatinine [Mass ratio] 13 mg/mg [facility] HEPATIC FUNCTION PANELon Albumin [Mass/Vol] 3.2 g/dL Low 3.5 - 5.0 g/dL [facility] ALP [Catalytic activity/Vol] 107 U/L 32 - 126 U/L [facility] ALT [Catalytic activity/Vol] 20 U/L 10 - 52 U/L [facility] AST [Catalytic activity/Vol] 31 U/L 10 - 39 U/L [facility] Bilirubin [Mass/Vol] 1.0 mg/dL NINF - 1.5 mg/dL [facility] Bilirubin.direct [Mass/Vol] 0.3 mg/dL High NINF - 0.3 mg/dL [facility] Protein [Mass/Vol] 6.6 g/dL 6.4 - 8.3 g/dL [facility] HISTOPLASMA ANTIGEN,URINEon 09-02-2023 H. capsulatum Ag (U) [Mass/Vol] Not detected ng/mL [facility] H. capsulatum Ag IA Ql (U) Not detected Not Detected [facility] HIV 1 AND 2 ANTIBODIES/P24 A NTIGENOrdered By: Wilma Luque on 09-02-2023 HIV 1+2 Ab+HIV1 p24 Ag IA Ql Non-Reactive Non Reactive [facility] Interpretation and review of laboratory results Normal [facility] MAGNESIUMon 09-02-2023 Interpretation and review of laboratory results Normal [facility] Magnesium [Mass/Vol] 1.7 mg/dL 1.6 - 2 .6 mg/dL [facility] No Panel Informationon 09-02 Interpretation and review of laboratory results Abnormal [facility] TACROLIMUS LEVEL, TROUGH (DC E DRUG LEVEL)on 09-02-2023 Interpretation and review of laboratory results Normal [facility] Tacrolimus (Bld) [Mass/Vol] 4.2 ng/mL [facility] CBC,PLATELETSon 09-01-2023 Erythrocyte distribution width (RBC) [Ratio] 13.4 % 10.9 - 14.3 % [facility] Hematocrit (Bld) [Volume fraction] 38.9 % Low 39.6 - 48.8 % [facility] Hemoglobin (Bld) [Mass/Vol] 12.7 g/dL Low 13.4 - 16.8 g/dL [facility] Interpretation and review of laboratory results Abnormal [facility] MCH (RBC) [Entitic mass] 27.6 pg 26.1 - 33.3 pg [facility] MCHC (RBC) [Mass/Vol] 32.6 g/dL 31.9 - 36.5 g/dL [facility] MCV (RBC) [Entitic vol] 84.6 fL 79.0 - 94.5 fL [facility] Platelet mean volume (Bld) [Entitic vol] 9.4 fL 8.7 - 12.3 fL [facility] Platelets (Bld) [#/Vol] 209 10*3/uL 146 - 337 K/uL [facility] RBC (Bld) [#/Vol] 4.60 10*6/uL [facility] WBC (Bld) [#/Vol] 4.41 10*3/uL 3.73 - 10. 10 K/uL [facility] CHEM 7 (LYTES,BUN,CREA,GLUC) on 09-01-2023 Anion gap [Moles/Vol] 14 mmol/L 7 - 17 mmol/L [facility] Chloride [Moles/Vol] 103 mmol/L 98 - 10 8 mmol/L [facility] CO2 [Moles/Vol] 21 mmol/L 21 - 31 mmol/L [facility] Creatinine [Mass/Vol] 1.16 mg/dL 0.70 - 1.30 mg/dL [facility] eGFR, CKD-EPI, Male 76 - PINF [facility] Glucose [Mass/Vol] 117 mg/dL High 70 - 99 mg/dL [facility] Osmolality Calc [Osmolality] 285 [facility] Potassium [Moles/Vol] 4.2 mmol/L 3.5 - 5.0 mmol/L [facility] Sodium [Moles/Vol] 134 mmol/L Low 135 - 145 mmol/L [facility] Urea nitrogen [Mass/Vol] 18 mg/dL 7 - 25 mg/dL [facility] Urea nitrogen/Creatinine [Mass ratio] 16 mg/mg [facility] CRYPTOCOCCAL ANTIGENon 09-01 Cryptococcus sp Ag Ql (S) Negative Negative [facility] Interpretation and review of laboratory results Normal [facility] HEPATIC FUNCTION PANELon Albumin [Mass/Vol] 3.3 g/dL Low 3.5 - 5.0 g/dL [facility] ALP [Catalytic activity/Vol] 112 U/L 32 - 126 U/L [facility] ALT [Catalytic activity/Vol] 21 U/L 10 - 52 U/L [facility] AST [Catalytic activity/Vol] 29 U/L 10 - 39 U/L [facility] Bilirubin [Mass/Vol] 1.0 mg/dL NINF - 1.5 mg/dL [facility] Bilirubin.direct [Mass/Vol] 0.2 mg/dL NINF - 0.3 mg/dL [facility] Protein [Mass/Vol] 6.8 g/dL 6.4 - 8.3 g/dL [facility] L. pneumophila 1 Ag IA Ql (U )Ordered By: Carolin Miles on 09-01-2023 Interpretation and review of laboratory results Normal [facility] LEGIONELLA URINARY AGOrdered By: Carolin Miles on 09-01-2023 L. pneumophila 1 Ag IA Ql (U) Negative Negative [facility] MAGNESIUMon 09-01-2023 Interpretation and review of laboratory results Normal [facility] Magnesium [Mass/Vol] 1.6 mg/dL 1.6 - 2 .6 mg/dL [facility] No Panel Informationon 09-01 Interpretation and review of laboratory results Abnormal [facility] CBC,PLATELETSon 08-31-2023 Erythrocyte distribution width (RBC) [Ratio] 13.3 % 10.9 - 14.3 % [facility] Hematocrit (Bld) [Volume fraction] 39.4 % Low 39.6 - 48.8 % [facility] Hemoglobin (Bld) [Mass/Vol] 12.8 g/dL Low 13.4 - 16.8 g/dL [facility] Interpretation and review of laboratory results Abnormal [facility] MCH (RBC) [Entitic mass] 27.6 pg 26.1 - 33.3 pg [facility] MCHC (RBC) [Mass/Vol] 32.5 g/dL 31.9 - 36.5 g/dL [facility] MCV (RBC) [Entitic vol] 85.1 fL 79.0 - 94.5 fL [facility] Platelet mean volume (Bld) [Entitic vol] 9.6 fL 8.7 - 12.3 fL [facility] Platelets (Bld) [#/Vol] 228 10*3/uL 146 - 337 K/uL [facility] RBC (Bld) [#/Vol] 4.63 10*6/uL [facility] WBC (Bld) [#/Vol] 4.77 10*3/uL 3.73 - 10. 10 K/uL [facility] CHEM 7 (LYTES,BUN,CREA,GLUC) on 08-31-2023 Anion gap [Moles/Vol] 13 mmol/L 7 - 17 mmol/L [facility] Chloride [Moles/Vol] 102 mmol/L 98 - 10 8 mmol/L [facility] CO2 [Moles/Vol] 23 mmol/L 21 - 31 mmol/L [facility] Creatinine [Mass/Vol] 1.37 mg/dL High 0.70 - 1.30 mg/dL [facility] eGFR, CKD-EPI, Male 62 - PINF [facility] Glucose [Mass/Vol] 112 mg/dL High 70 - 99 mg/dL [facility] Osmolality Calc [Osmolality] 284 [facility] Potassium [Moles/Vol] 4.4 mmol/L 3.5 - 5.0 mmol/L [facility] Sodium [Moles/Vol] 134 mmol/L Low 135 - 145 mmol/L [facility] Urea nitrogen [Mass/Vol] 16 mg/dL 7 - 25 mg/dL [facility] Urea nitrogen/Creatinine [Mass ratio] 12 mg/mg [facility] CT Abdomen and Pelvis WO con traston 08-31-2023 RADIOLOGY RADIOLOGY [facility] Radiology Study observation (narrative) [facility] CT Abdomen and Pelvis WO con trastOrdered By: Chavez Larkin on 08-31-2023 [facility] Work Phone: CT Chest WO contraston 08-31 RADIOLOGY RADIOLOGY [facility] Radiology Study observation (narrative) [facility] CT Chest WO contrastOrdered By: Daisha Patterson on 08-31-2023 [facility] Work Phone: FERRITINon 08-31-2023 Ferritin [Mass/Vol] 409.0 ng/mL High 10.5 - 3 07.3 ng/mL [facility] Interpretation and review of laboratory results Abnormal [facility] HEPATIC FUNCTION PANELon Albumin [Mass/Vol] 3.3 g/dL Low 3.5 - 5.0 g/dL [facility] ALP [Catalytic activity/Vol] 113 U/L 32 - 126 U/L [facility] ALT [Catalytic activity/Vol] 25 U/L 10 - 52 U/L [facility] AST [Catalytic activity/Vol] 31 U/L 10 - 39 U/L [facility] Bilirubin [Mass/Vol] 1.1 mg/dL NINF - 1.5 mg/dL [facility] Bilirubin.direct [Mass/Vol] 0.3 mg/dL High NINF - 0.3 mg/dL [facility] Protein [Mass/Vol] 7.0 g/dL 6.4 - 8.3 g/dL [facility] MAGNESIUMon 08-31-2023 Interpretation and review of laboratory results Normal [facility] Magnesium [Mass/Vol] 1.7 mg/dL 1.6 - 2 .6 mg/dL [facility] No Panel Informationon 08-31 Interpretation and review of laboratory results Abnormal [facility] PROCALCITONINon 08-31-2023 Interpretation and review of laboratory results Normal [facility] Procalcitonin [Mass/Vol] 0.23 ng/mL NINF - 0.50 ng/mL [facility] TACROLIMUS LEVEL, TROUGH (DC E DRUG LEVEL)Ordered By: Yanira Marcum on 08-31-2023 Interpretation and review of laboratory results Normal [facility] Tacrolimus (Bld) [Mass/Vol] 5.9 ng/mL [facility] URINE CULTUREOrdered By: Jorge Lozano on 08-31-2023 Bacteria identified Cx Nom (Unsp spec) No Growth [facility] DARYL AURIS SCREEN BY PCRO rdered By: Mynor Alejandro on 08-30-2023 Daryl auris Screen by PCR Not detected Not Detected [facility] Interpretation and review of laboratory results Normal [facility] CBC,PLATELETSon 08-30-2023 Erythrocyte distribution width (RBC) [Ratio] 13.3 % 10.9 - 14.3 % [facility] Hematocrit (Bld) [Volume fraction] 41.3 % 39.6 - 48.8 % [facility] Hemoglobin (Bld) [Mass/Vol] 13.2 g/dL Low 13.4 - 16.8 g/dL [facility] Interpretation and review of laboratory results Abnormal [facility] MCH (RBC) [Entitic mass] 27.3 pg 26.1 - 33.3 pg [facility] MCHC (RBC) [Mass/Vol] 32.0 g/dL 31.9 - 36.5 g/dL [facility] MCV (RBC) [Entitic vol] 85.5 fL 79.0 - 94.5 fL [facility] Platelet mean volume (Bld) [Entitic vol] 9.2 fL 8.7 - 12.3 fL [facility] Platelets (Bld) [#/Vol] 235 10*3/uL 146 - 337 K/uL [facility] RBC (Bld) [#/Vol] 4.83 10*6/uL [facility] WBC (Bld) [#/Vol] 4.96 10*3/uL 3.73 - 10. 10 K/uL [facility] CHEM 7 (LYTES,BUN,CREA,GLUC) on 08-30-2023 Anion gap [Moles/Vol] 14 mmol/L 7 - 17 mmol/L [facility] Chloride [Moles/Vol] 102 mmol/L 98 - 10 8 mmol/L [facility] CO2 [Moles/Vol] 20 mmol/L Low 21 - 31 mmol/L [facility] Creatinine [Mass/Vol] 1.56 mg/dL High 0.70 - 1.30 mg/dL [facility] eGFR, CKD-EPI, Male 54 Low - PINF [facility] Glucose [Mass/Vol] 123 mg/dL High 70 - 99 mg/dL [facility] Osmolality Calc [Osmolality] 281 [facility] Potassium [Moles/Vol] 4.3 mmol/L 3.5 - 5.0 mmol/L [facility] Sodium [Moles/Vol] 132 mmol/L Low 135 - 145 mmol/L [facility] Urea nitrogen [Mass/Vol] 16 mg/dL 7 - 25 mg/dL [facility] Urea nitrogen/Creatinine [Mass ratio] 10 mg/mg [facility] EXTRA MICROon 08-30-2023 [facility] HEPATIC FUNCTION PANELon Albumin [Mass/Vol] 3.7 g/dL 3.5 - 5.0 g/dL [facility] ALP [Catalytic activity/Vol] 115 U/L 32 - 126 U/L [facility] ALT [Catalytic activity/Vol] 22 U/L 10 - 52 U/L [facility] AST [Catalytic activity/Vol] 34 U/L 10 - 39 U/L [facility] Bilirubin [Mass/Vol] 1.2 [facility] - [facility] mg/dL [facility] Bilirubin.direct [Mass/Vol] 0.3 mg/dL High NINF - 0.3 mg/dL [facility] Protein [Mass/Vol] 7.7 g/dL 6.4 - 8.3 g/dL [facility] MAGNESIUMon 08-30-2023 Interpretation and review of laboratory results Normal [facility] Magnesium [Mass/Vol] 1.8 mg/dL 1.6 - 2 .6 mg/dL [facility] No Panel Informationon 08-30 Interpretation and review of laboratory results Abnormal [facility] CBC,PLATELETSon 08-29-2023 Erythrocyte distribution width (RBC) [Ratio] 13.4 % 10.9 - 14.3 % [facility] Hematocrit (Bld) [Volume fraction] 37.6 % Low 39.6 - 48.8 % [facility] Hemoglobin (Bld) [Mass/Vol] 12.2 g/dL Low 13.4 - 16.8 g/dL [facility] Interpretation and review of laboratory results Abnormal [facility] MCH (RBC) [Entitic mass] 27.6 pg 26.1 - 33.3 pg [facility] MCHC (RBC) [Mass/Vol] 32.4 g/dL 31.9 - 36.5 g/dL [facility] MCV (RBC) [Entitic vol] 85.1 fL 79.0 - 94.5 fL [facility] Platelet mean volume (Bld) [Entitic vol] 9.4 fL 8.7 - 12.3 fL [facility] Platelets (Bld) [#/Vol] 233 10*3/uL 146 - 337 K/uL [facility] RBC (Bld) [#/Vol] 4.42 10*6/uL [facility] WBC (Bld) [#/Vol] 4.92 10*3/uL 3.73 - 10. 10 K/uL [facility] CHEM 7 (LYTES,BUN,CREA,GLUC) on 08-29-2023 Anion gap [Moles/Vol] 13 mmol/L 7 - 17 mmol/L [facility] Chloride [Moles/Vol] 105 mmol/L 98 - 10 8 mmol/L [facility] CO2 [Moles/Vol] 20 mmol/L Low 21 - 31 mmol/L [facility] Creatinine [Mass/Vol] 1.55 mg/dL High 0.70 - 1.30 mg/dL [facility] eGFR, CKD-EPI, Male 55 Low - PINF [facility] Glucose [Mass/Vol] 108 mg/dL High 70 - 99 mg/dL [facility] Osmolality Calc [Osmolality] 283 [facility] Potassium [Moles/Vol] 4.5 mmol/L 3.5 - 5.0 mmol/L [facility] Sodium [Moles/Vol] 133 mmol/L Low 135 - 145 mmol/L [facility] Urea nitrogen [Mass/Vol] 19 mg/dL 7 - 25 mg/dL [facility] Urea nitrogen/Creatinine [Mass ratio] 12 mg/mg [facility] GGTon 08-29-2023 Gamma glutamyl transferase [Catalytic activity/Vol] 64 U/L 8 - 64 U/L [facility] Interpretation and review of laboratory results Normal [facility] HEPATIC FUNCTION PANELon Albumin [Mass/Vol] 3.3 g/dL Low 3.5 - 5.0 g/dL [facility] ALP [Catalytic activity/Vol] 103 U/L 32 - 126 U/L [facility] ALT [Catalytic activity/Vol] 18 U/L 10 - 52 U/L [facility] AST [Catalytic activity/Vol] 27 U/L 10 - 39 U/L [facility] Bilirubin [Mass/Vol] 1.1 mg/dL NINF - 1.5 mg/dL [facility] Bilirubin.direct [Mass/Vol] 0.3 mg/dL High NINF - 0.3 mg/dL [facility] Protein [Mass/Vol] 6.8 g/dL 6.4 - 8.3 g/dL [facility] MAGNESIUMon 08-29-2023 Interpretation and review of laboratory results Normal [facility] Magnesium [Mass/Vol] 1.7 mg/dL 1.6 - 2 .6 mg/dL [facility] No Panel Informationon 08-29 Interpretation and review of laboratory results Abnormal [facility] PT,INR,PTTon 08-29-2023 aPTT Coag (PPP) [Time] 29.3 s [facility] INR Coag (Bld) [Relative time] 1.1 {INR} 0.9 - 1.1 [facility] Interpretation and review of laboratory results Normal [facility] PT Coag (PPP) [Time] 13.8 s [facility] Portable XR Chest Viewson RADIOLOGY RADIOLOGY [facility] Portable XR Chest ViewsOrder ed By: Gerald Baer on 08-29-2023 [facility] Work Phone: TACROLIMUS LEVEL, TROUGH (DC E DRUG LEVEL)on 08-29-2023 Interpretation and review of laboratory results Normal [facility] Tacrolimus (Bld) [Mass/Vol] 8.9 ng/mL [facility] TACROLIMUS LEVEL, TROUGH (DC E DRUG LEVEL)Ordered By: Roxanne Louie on 08-29-2023 Interpretation and review of laboratory results Normal [facility] Tacrolimus (Bld) [Mass/Vol] 8.7 ng/mL [facility] URINAL[facility] REFLEX TO CULTURE PERFORMABLEOrdered By: Shaji Kelly on 08-29-2023 Appearance (U) Clear Clear [facility] Bacteria LM Ql (Urine sed) ABSENT ABSENT [facility] Calcium Oxalate Crystals PRESENT [facility] Color (U) Yellow Yellow [facility] Epithelial cells.squamous LM Ql (Urine sed) 0-2/hpf 0-2/hpf, 3-5/hpf = 1+ [facility] Glucose Test strip (U) [Mass/Vol] Negative Negative [facility] Interpretation and review of laboratory results Abnormal [facility] Ketones (U) [Mass/Vol] Negative Negative [facility] Leukocyte esterase Test strip Ql (U) Negative Negative [facility] Nitrite Ql (U) Negative Negative [facility] pH (U) 6.0 [pH] 5.0 - 7.0 [facility] Protein (U) [Mass/Vol] Negative Negative [facility] RBC (U) [#/Vol] Trace Abnormal Negative [facility] RBC LM.HPF (Urine sed) [#/Area] 3-5 Abnormal [facility] Specific gravity (U) [Rel density] 1.015 1.001 - 1.035 [facility] Urobilinogen (U) [Mass/Vol] 1.0 E.U./dL 0.2 E.U/dL, 1.0 E.U/dL [facility] WBC LM.HPF (Urine sed) [#/Area] 0 - 5 [facility] US for [facility] kidney l imitedon 08-29-2023 RADIOLOGY RADIOLOGY [facility] Radiology Study observation (narrative) [facility] US for transplanted kidney l imitedOrdered By: Romana Matias on 08-29-2023 [facility] Work Phone: CBC AND ELECTRONIC DIFFon Basophils (Bld) [#/Vol] K/uL 0.00 - 0.09 K/uL [facility] Basophils/100 WBC (Bld) 0.6 % [facility] Differential cell count method Nom (Bld) Electronic Differential [facility] Eosinophils (Bld) [#/Vol] 0.10 10*3/uL 0.00 - 0.48 K/uL [facility] Eosinophils/100 WBC (Bld) 2.1 % [facility] Erythrocyte distribution width (RBC) [Ratio] 13.4 % 10.9 - 14.3 % [facility] Hematocrit (Bld) [Volume fraction] 37.9 % Low 39.6 - 48.8 % [facility] Hemoglobin (Bld) [Mass/Vol] 12.4 g/dL Low 13.4 - 16.8 g/dL [facility] Immature granulocytes (Bld) [#/Vol] K/uL NINF - 0.07 K/uL [facility] Immature granulocytes/100 WBC (Bld) 0.6 % [facility] Interpretation and review of laboratory results Abnormal [facility] Lymphocytes (Bld) [#/Vol] 1.76 10*3/uL 0.83 - 3.57 K/uL [facility] Lymphocytes/100 WBC (Bld) 37.1 % [facility] MCH (RBC) [Entitic mass] 27.8 pg 26.1 - 33.3 pg [facility] MCHC (RBC) [Mass/Vol] 32.7 g/dL 31.9 - 36.5 g/dL [facility] MCV (RBC) [Entitic vol] 85.0 fL 79.0 - 94.5 fL [facility] Monocytes (Bld) [#/Vol] 0.66 10*3/uL 0.24 - 0.93 K/uL [facility] Monocytes/100 WBC (Bld) 13.9 % [facility] Neutrophils (Bld) [#/Vol] 2.16 10*3/uL 1.57 - 6.19 K/uL [facility] Nucleated RBC/100 WBC (Bld) [Ratio] 0.0 % [facility] Platelet mean volume (Bld) [Entitic vol] 9.3 fL 8.7 - 12.3 fL [facility] Platelets (Bld) [#/Vol] 262 10*3/uL 146 - 337 K/uL [facility] RBC (Bld) [#/Vol] 4.46 10*6/uL [facility] Segmented neutrophils/100 WBC (Bld) 45.7 % [facility] WBC (Bld) [#/Vol] 4.74 10*3/uL 3.73 - 10. 10 K/uL [facility] CHEM 6 (LYTES, BUN CREA)on 0 08-28-2023 Anion gap [Moles/Vol] 13 mmol/L 7 - 17 mmol/L [facility] Chloride [Moles/Vol] 103 mmol/L 98 - 10 8 mmol/L [facility] CO2 [Moles/Vol] 22 mmol/L 21 - 31 mmol/L [facility] Creatinine [Mass/Vol] 1.62 mg/dL High 0.70 - 1.30 mg/dL [facility] eGFR, CKD-EPI, Male 52 Low - PINF [facility] Interpretation and review of laboratory results Abnormal [facility] Potassium [Moles/Vol] 4.3 mmol/L 3.5 - 5.0 mmol/L [facility] Sodium [Moles/Vol] 134 mmol/L Low 135 - 145 mmol/L [facility] Urea nitrogen [Mass/Vol] 22 mg/dL 7 - 25 mg/dL [facility] Urea nitrogen/Creatinine [Mass ratio] 14 mg/mg [facility] Portable XR Chest [facility] Radiology Study observation (narrative) [facility] Respiratory virus DNA+RNA NA A+probe Nom (Unsp spec)Ordered By: Dayami Harris on 08-28-2023 Adenovirus DNA ESTELITA+probe Nom (Unsp spec) Not detected Not Detected [facility] B. parapertussis DNA ESTELITA+probe Ql (Unsp spec) Not detected Not Detected [facility] B. pertussis DNA ESTELITA+probe Ql (Unsp spec) Not detected Not Detected [facility] C. pneumoniae DNA ESTELITA+probe Ql (Unsp spec) Not detected Not Detected [facility] FLUAV RNA ESTELITA+probe Ql (Unsp spec) Not detected Not Detected [facility] FLUBV RNA ESTELITA+probe Ql (Unsp spec) Not detected Not Detected [facility] HCoV 229E RNA ESTELITA+non-probe Ql (Nph) Not detected Not Detected [facility] HCoV HKU1 RNA ESTELITA+non-probe Ql (Nph) Not detected Not Detected [facility] HCoV NL63 RNA ESTELITA+non-probe Ql (Nph) Not detected Not Detected [facility] HCoV OC43 RNA ESTELITA+non-probe Ql (Nph) Not detected Not Detected [facility] hMPV A RNA ESTELITA+probe Ql (Unsp spec) Not detected Not Detected [facility] Interpretation and review of laboratory results Normal [facility] M. pneumoniae DNA ESTELITA+probe Ql (Unsp spec) Not detected Not Detected [facility] Parainfluenza virus 1 RNA ESTELITA+probe Ql (Unsp spec) Not detected Not Detected [facility] Parainfluenza virus 2 RNA ESTELITA+probe Ql (Unsp spec) Not detected Not Detected [facility] Parainfluenza virus 3 RNA ESTELITA+probe Ql (Unsp spec) Not detected Not Detected [facility] Parainfluenza virus 4 RNA ESTELITA+probe Ql (Unsp spec) Not detected Not Detected [facility] Rhinovirus+Enterovirus RNA ESTELITA+probe Ql (Unsp spec) Not detected Not Detected [facility] RSV RNA ESTELITA+probe Ql (Unsp spec) Not detected Not Detected [facility] SARS-CoV-2 (COVID-19) RNA ESTELITA+probe Ql (Unsp spec) Not detected NOT DETECTED [facility] ALBUMINon 04-28-2023 Albumin [Mass/Vol] 4.0 g/dL Normal 3.4-5.0 [facility] Comment on above: Performed By: #### C MP #### [facility] [address] [place] [address] Dr. Dwight Waters ALKALINE PHOSPHAon ALP [Catalytic activity/Vol] 106 U/L Normal 46-116 [facility] Comment on above: Performed By: #### F [id number] #### [facility] [address] [place] [address] Dr. Dwight Waters BILIRUBIN CONJUGATED (DIRECT )on 04-28-2023 BILI, CONJUGATED 0.3 mg/dL Critically high 0.0-0.2 [facility] Comment on above: Performed By: #### C MP #### [facility] [address] [place] [address] Dr. Dwight Waters BILIRUBIN TOTALon 04-28-2023 Bilirubin [Mass/Vol] 1.4 mg/dL Critically high 0.2-1.0 [facility] Comment on above: Performed By: #### C MP #### [facility] [address] [place] [address] Dr. Dwight Waters BUNon 04-28-2023 Urea nitrogen [Mass/Vol] 12.0 mg/dL Normal 7.0-18.0 [facility] Comment on above: Performed By: #### U RTPCR #### [facility] [address] [address] [address] Dwight Waters CALCIUMon 04-28-2023 Calcium [Mass/Vol] 9.3 mg/dL Normal 8.5-10.1 [facility] Comment on above: Performed By: #### U RTPCR #### [facility] [address] [place] [address] Dr. Dwight Waters CBC AUTO DIFFon 04-28-2023 BASO # 0.1 103/ul Normal 0.0-0.1 [facility] Comment on above: Performed By: #### C BC #### [facility] [address] [place] [address] Dr. Dwight Waters Basophils/100 WBC (Bld) 0.9 % Normal 0.2-2.0 [facility] Comment on above: Performed By: #### C BC #### [facility] [address] [place] [address] Dr. Dwight Waters EO # 0.2 103/ul Normal 0.0-0.7 [facility] Comment on above: Performed By: #### C BC #### [facility] [address] [place] [address] Dr. Dwight Waters Eosinophils/100 WBC (Bld) 3.8 % Normal 0.9-7.0 [facility] Comment on above: Performed By: #### C BC #### [facility] [address] [place] [address] Dr. Dwight Waters Erythrocyte distribution width (RBC) [Ratio] 12.5 % Normal 11.0-15.0 [facility] Comment on above: Performed By: #### C BC #### [facility] [address] [place] [address] Dr. Dwight Waters Hematocrit (Bld) [Volume fraction] 49.8 % Normal 42.0-54.0 [facility] Comment on above: Performed By: #### C BC #### [facility] [address] [place] [address] Dr. Dwight Waters Hemoglobin (Bld) [Mass/Vol] 16.4 g/dL Normal 14.0-18.0 [facility] Comment on above: Performed By: #### C BC #### [facility] [address] [place] [address] Dr. Dwight Waters IG # 0.01 10e3/ul Normal 0.00-0.03 [facility] Comment on above: Performed By: #### C BC #### [facility] [address] [place] [address] Dr. Dwight Waters IG % 0.2 % Normal 0.0-0.5 [facility] Comment on above: Performed By: #### C BC #### [facility] [address] [place] [address] Dr. Dwight Waters LYMPH # 2.1 103/ul Normal 1.2-3.8 [facility] Comment on above: Performed By: #### C BC #### [facility] [address] [place] [address] Dr. Dwight Waters Lymphocytes/100 WBC (Bld) 39.1 % Normal 20.5-60.0 [facility] Comment on above: Performed By: #### C BC #### [facility] [address] [place] [address] Dr. Dwight Waters MANUAL DIFF REQ NO Normal [facility] Comment on above: Performed By: #### C BC #### [facility] [address] [place] [address] Dr. Dwight Waters MCH (RBC) [Entitic mass] 28.6 pg Normal 25.9-34.0 [facility] Comment on above: Performed By: #### C BC #### [facility] [address] [place] [address] Dr. Dwight Waters MCHC (RBC) [Mass/Vol] 32.9 g/dL Normal 29.9-35.2 [facility] Comment on above: Performed By: #### C BC #### [facility] [address] [place] [address] Dr. Dwight Waters MCV (RBC) [Entitic vol] 86.9 fL Normal 80.0-94.0 [facility] Comment on above: Performed By: #### C BC #### [facility] [address] [place] [address] Dr. Dwight Waters MONO # 0.6 103/ul Normal 0.3-0.8 [facility] Comment on above: Performed By: #### C BC #### [facility] [address] [place] [address] Dr. Dwight Waters Monocytes/100 WBC (Bld) 10.6 % Normal 1.7-12.0 [facility] Comment on above: Performed By: #### C BC #### [facility] [address] [place] [address] Dr. Dwight Waters NEUT # 2.5 103/ul Normal 1.4-6.5 [facility] Comment on above: Performed By: #### C BC #### [facility] [address] [place] [address] Dr. Dwight Waters Neutrophils/100 WBC (Bld) 45.4 % Normal 43.0-75.0 [facility] Comment on above: Performed By: #### C BC #### [facility] [address] [place] [address] Dr. Dwight Waters Platelet mean volume (Bld) [Entitic vol] 9.3 fL Critically low 9.5-13.5 [facility] Comment on above: Performed By: #### C BC #### [facility] [address] [place] [address] Dr. Dwight Waters PLT 248 103/ul Normal 150-450 [facility] Comment on above: Performed By: #### C BC #### [facility] [address] [place] [address] Dr. Dwight Waters RBC 5.73 106/ul Normal 4.70-6.10 [facility] Comment on above: Performed By: #### C BC #### [facility] [address] [place] [address] Dr. Dwight Waters WBC 5.5 103/ul Normal 4.0-11.0 [facility] Comment on above: Performed By: #### C BC #### [facility] [address] [place] [address] Dr. Dwight Waters CHLORIDEon 04-28-2023 Chloride [Moles/Vol] 107 mmol/L Normal 98-107 [facility] Comment on above: Performed By: #### U RTPCR #### [facility] [address] [place] [address] Dr. Dwight Waters CO2on 04-28-2023 CO2 [Moles/Vol] 28.9 mmol/L Normal 21.0-32.0 [facility] Comment on above: Performed By: #### U RTPCR #### [facility] [address] [address] [address] Dwight Waters CREATININEon 04-28-2023 Creatinine [Mass/Vol] 1.17 mg/dL Normal 0.70-1.30 [facility] Comment on above: Performed By: #### U RTPCR #### [facility] [address] [place] [address] Dr. Dwight Waters EGFR-AF SWISS >60 Normal >=60 [facility] Comment on above: Performed By: #### U RTPCR #### [facility] [address] [place] [address] Dr. Dwight Waters EGFR-NON AF SWISS >60 Normal >=60 [facility] Comment on above: Performed By: #### U RTPCR #### [facility] [address] [place] [address] Dr. Dwight Waters GGTon 04-28-2023 Gamma glutamyl transferase [Catalytic activity/Vol] 27 U/L Normal 15-85 [facility] Comment on above: Performed By: #### U RTPCR #### [facility] [address] [place] [address] Dr. Dwight Waters GLUCOSE BLOODon 04-28-2023 Glucose [Mass/Vol] 110 mg/dL Critically high 74-[address] [facility] Comment on above: Performed By: #### U RTPCR #### [facility] [address] [place] [address] Dr. Dwight Waters MAGNESIUMon 04-28-2023 Magnesium [Mass/Vol] 1.7 mg/dL Critically low 1.8-2.4 [facility] Comment on above: Performed By: #### U RTPCR #### [facility] [address] [place] [address] Dr. Dwight Waters NAandrzej 04-28-2023 Sodium [Moles/Vol] 144 mmol/L Normal 136-145 [facility] Comment on above: Performed By: #### U RTPCR #### [facility] [address] [place] [address] Dr. Dwight Waters PHOSPHORUSon 04-28-2023 Phosphate [Mass/Vol] 3.2 mg/dL Normal 2.6-4.7 [facility] Comment on above: Performed By: #### U RTPCR #### [facility] [address] [place] [address] Dr. Dwight Waters POTASSIUMon 04-28-2023 Potassium [Moles/Vol] 4.0 mmol/L Normal 3.5-5.1 [facility] Comment on above: Performed By: #### U RTPCR #### [facility] [address] [place] [address] Dr. Dwight Albert 04-28-2023 AST [Catalytic activity/Vol] 25 U/L Normal 15-37 [facility] Comment on above: Performed By: #### C MP #### [facility] [address] [place] [address] Dr. Dwight Osei 04-28-2023 ALT [Catalytic activity/Vol] 40 U/L Normal 16-63 [facility] Comment on above: Performed By: #### C MP #### [facility] [address] [place] [address] Dr. Dwight Waters URINE T PROTEIN CREAT RATIOo n 04-28-2023 Protein (U) [Mass/Vol] 10.1 mg/dL Normal <=12.0 [facility] Comment on above: Performed By: #### U RTPCR #### [facility] [address] [place] [address] Dr. Dwight Waters UR PROT CREAT RAT 0.14 Normal [facility] Comment on above: Performed By: #### U RTPCR #### [facility] [address] [place] [address] Dr. Dwight Waters URINE CREAT 74.40 mg/dL Normal 20.00-300.00 [facility] Comment on above: Performed By: #### U RTPCR #### [facility] [address] [place] [address] Dr. Dwight Waters BK VIRUS PCR QUANTon 023 BKV DNA QUANT PCR PLASMA Negative Normal Negative [facility] Comment on above: Result Comment: No B K DNA detected. . The linear range of the assay is 22 - 100,000,000 IU/mL. Performed By: #### B KVIRUS #### [facility] [address] [place] [address] Dr. Dwight Waters Log10 BKV DNA Plasma Normal [facility] Comment on above: Performed By: #### B KVIRUS #### [facility] [address] [place] [address] Dr. Dwight Waters FK506 (TACROLIMUS) WHOLE BLO ODon 03-04-2023 Tacrolimus (FK506), Blood 5.9 ng/mL Normal 2.0-20.0 [facility] Comment on above: Result Comment: Trou gh (immediately following transplant) 15.0 . Trough (steady state, 2 weeks or more after transplant): 3.0 - 8.0 . Performed by LC-MS/MS technology. Performed By: #### C MP #### [facility] [address] [place] [address] Dr. Dwight Waters ALBUMINon 03-02-2023 Albumin [Mass/Vol] 3.9 g/dL Normal 3.4-5.0 [facility] Comment on above: Performed By: #### U RTPCR #### [facility] [address] [place] [address] Dr. Dwight Waters ALKALINE PHOSPHAon ALP [Catalytic activity/Vol] 105 U/L Normal 46-116 [facility] Comment on above: Performed By: #### U RTPCR #### [facility] [address] [place] [address] Dr. Dwight Waters BILIRUBIN CONJUGATED (DIRECT )on 03-02-2023 BILI, CONJUGATED 0.2 mg/dL Normal 0.0-0.2 [facility] Comment on above: Performed By: #### U RTPCR #### [facility] [address] [place] [address] Dr. Dwight Waters BILIRUBIN TOTALon 03-02-2023 Bilirubin [Mass/Vol] 0.9 mg/dL Normal 0.2-1.0 [facility] Comment on above: Performed By: #### U RTPCR #### [facility] [address] [place] [address] Dr. Dwight Waters CBC AUTO DIFFon 03-02-2023 BASO # 0.1 103/ul Normal 0.0-0.1 [facility] Comment on above: Performed By: #### C BC #### [facility] [address] [place] [address] Dr. Dwight Waters Basophils/100 WBC (Bld) 0.9 % Normal 0.2-2.0 [facility] Comment on above: Performed By: #### C BC #### [facility] [address] [place] [address] Dr. Dwight Waters EO # 0.2 103/ul Normal 0.0-0.7 [facility] Comment on above: Performed By: #### C BC #### [facility] [address] [place] [address] Dr. Dwight Waters Eosinophils/100 WBC (Bld) 3.5 % Normal 0.9-7.0 [facility] Comment on above: Performed By: #### C BC #### [facility] [address] [place] [address] Dr. Dwight Waters Erythrocyte distribution width (RBC) [Ratio] 12.7 % Normal 11.0-15.0 [facility] Comment on above: Performed By: #### C BC #### [facility] [address] [place] [address] Dr. Dwight Waters Hematocrit (Bld) [Volume fraction] 48.2 % Normal 42.0-54.0 [facility] Comment on above: Performed By: #### C BC #### [facility] [address] [place] [address] Dr. Dwight Waters Hemoglobin (Bld) [Mass/Vol] 15.9 g/dL Normal 14.0-18.0 [facility] Comment on above: Performed By: #### C BC #### [facility] [address] [place] [address] Dr. Dwight Waters IG # 0.01 10e3/ul Normal 0.00-0.03 [facility] Comment on above: Performed By: #### C BC #### [facility] [address] [place] [address] Dr. Dwight Waters IG % 0.2 % Normal 0.0-0.5 [facility] Comment on above: Performed By: #### C BC #### [facility] [address] [place] [address] Dr. Dwight Waters LYMPH # 2.1 103/ul Normal 1.2-3.8 [facility] Comment on above: Performed By: #### C BC #### [facility] [address] [place] [address] Dr. Dwight Waters Lymphocytes/100 WBC (Bld) 37.4 % Normal 20.5-60.0 [facility] Comment on above: Performed By: #### C BC #### [facility] [address] [place] [address] Dr. Dwight Waters MANUAL DIFF REQ NO Normal [facility] Comment on above: Performed By: #### C BC #### [facility] [address] [place] [address] Dr. Dwight Waters MCH (RBC) [Entitic mass] 28.3 pg Normal 25.9-34.0 [facility] Comment on above: Performed By: #### C BC #### [facility] [address] [place] [address] Dr. Dwight Waters MCHC (RBC) [Mass/Vol] 33.0 g/dL Normal 29.9-35.2 [facility] Comment on above: Performed By: #### C BC #### [facility] [address] [place] [address] Dr. Dwight Waters MCV (RBC) [Entitic vol] 85.8 fL Normal 80.0-94.0 [facility] Comment on above: Performed By: #### C BC #### [facility] [address] [place] [address] Dr. Dwight Waters MONO # 0.6 103/ul Normal 0.3-0.8 [facility] Comment on above: Performed By: #### C BC #### [facility] [address] [place] [address] Dr. Dwight Waters Monocytes/100 WBC (Bld) 10.2 % Normal 1.7-12.0 [facility] Comment on above: Performed By: #### C BC #### [facility] [address] [place] [address] Dr. Dwight Waters NEUT # 2.7 103/ul Normal 1.4-6.5 [facility] Comment on above: Performed By: #### C BC #### [facility] [address] [place] [address] Dr. Dwight Waters Neutrophils/100 WBC (Bld) 47.8 % Normal 43.0-75.0 [facility] Comment on above: Performed By: #### C BC #### [facility] [address] [place] [address] Dr. Dwight Waters Platelet mean volume (Bld) [Entitic vol] 9.3 fL Critically low 9.5-13.5 [facility] Comment on above: Performed By: #### C BC #### [facility] [address] [place] [address] Dr. Dwight Waters PLT 241 103/ul Normal 150-450 [facility] Comment on above: Performed By: #### C BC #### [facility] [address] [place], [place] [id number] Dr. Dwight Waters RBC 5.62 106/ul Normal 4.70-6.10 [facility] Comment on above: Performed By: #### C BC #### [facility] [address] [place] [address] Dr. Dwight Waters WBC 5.7 103/ul Normal 4.0-11.0 [facility] Comment on above: Performed By: #### C BC #### [facility] [address] [place] [address] Dr. Dwight Waters GGTon 03-02-2023 Gamma glutamyl transferase [Catalytic activity/Vol] 25 U/L Normal 15-85 [facility] Comment on above: Performed By: #### U RTPCR #### [facility] [address] [place] [address] Dr. Dwight Waters MAGNESIUMon 03-02-2023 Magnesium [Mass/Vol] 1.6 mg/dL Critically low 1.8-2.4 [facility] Comment on above: Performed By: #### U RTPCR #### [facility] [address] [place] [address] Dr. Dwight Waters PHOSPHORUSon 03-02-2023 Phosphate [Mass/Vol] 3.6 mg/dL Normal 2.6-4.7 [facility] Comment on above: Performed By: #### U RTPCR #### [facility] [address] [place] [address] Dr. Dwight Waters PROF CHEM 8 (BAS METB)on Anion gap [Moles/Vol] 9.4 mmol/L Normal [facility] Comment on above: Performed By: #### U RTPCR #### [facility] [address] [place] [address] Dr. Dwight Waters Calcium [Mass/Vol] 9.3 mg/dL Normal 8.5-10.1 [facility] Comment on above: Performed By: #### U RTPCR #### [facility] [address] [place] [address] Dr. Dwight Waters Chloride [Moles/Vol] 108 mmol/L Critically high 98-107 [facility] Comment on above: Performed By: #### U RTPCR #### [facility] [address] [place] [address] Dr. Dwight Waters CO2 [Moles/Vol] 27.2 mmol/L Normal 21.0-32.0 [facility] Comment on above: Performed By: #### U RTPCR #### [facility] [address] [address] [address] Dwight Waters Creatinine [Mass/Vol] 1.12 mg/dL Normal 0.70-1.30 [facility] Comment on above: Performed By: #### U RTPCR #### [facility] [address] [address] [address] Dwight Waters EGFR-AF SWISS >60 Normal >=60 [facility] Comment on above: Performed By: #### U RTPCR #### [facility] [address] [place] [address] Dr. Dwight Waters EGFR-NON AF SWISS >60 Normal >=60 [facility] Comment on above: Performed By: #### U RTPCR #### [facility] [address] [place] [address] Dr. Dwight Waters Glucose [Mass/Vol] 113 mg/dL Critically high 74-106 [facility] Comment on above: Performed By: #### U RTPCR #### [facility] [address] [place] [address] Dr. Dwight Waters Potassium [Moles/Vol] 3.6 mmol/L Normal 3.5-5.1 [facility] Comment on above: Performed By: #### U RTPCR #### [facility] [address] [place] [address] Dr. Dwight Waters Sodium [Moles/Vol] 141 mmol/L Normal 136-145 [facility] Comment on above: Performed By: #### U RTPCR #### [facility] [address] [address] [address] Dwight Waters Urea nitrogen [Mass/Vol] 14.0 mg/dL Normal 7.0-18.0 [facility] Comment on above: Performed By: #### U RTPCR #### [facility] [address] [place] [address] Dr. Dwight Waters Urea nitrogen/Creatinine [Mass ratio] 12.5 mg/mg Normal [facility] Comment on above: Performed By: #### U RTPCR #### [facility] [address] [place] [address] Dr. Dwight Waters SGOTon 03-02-2023 AST [Catalytic activity/Vol] 20 U/L Normal 15-37 [facility] Comment on above: Performed By: #### U RTPCR #### [facility] [address] [place] [address] Dr. Dwight Waters SGPTon 03-02-2023 ALT [Catalytic activity/Vol] 30 U/L Normal 16-63 [facility] Comment on above: Performed By: #### U RTPCR #### [facility] [address] [place] [address] Dr. Dwight Waters URINE T PROTEIN CREAT RATIOo n 03-02-2023 Protein (U) [Mass/Vol] 10.3 mg/dL Normal <=12.0 [facility] Comment on above: Performed By: #### U RTPCR #### [facility] [address] [place] [address] Dr. Dwight Waters UR PROT CREAT RAT 0.15 Normal [facility] Comment on above: Performed By: #### U RTPCR #### [facility] [address] [place] [address] Dr. Dwight Waters URINE CREAT 68.96 mg/dL Normal 20.00-300.00 [facility] Comment on above: Performed By: #### U RTPCR #### [facility] [address] [place] [address] Dr. Dwight Waters BK VIRUS PCR QUANTon 023 BKV DNA QUANT PCR PLASMA Negative Normal Negative [facility] Comment on above: Result Comment: No B K DNA detected. . The linear range of the assay is 22 - 100,000,000 IU/mL. Performed By: #### C MP #### [facility] [address] [place] [address] Dr. Dwight Waters Log10 BKV DNA Plasma Normal [facility] Comment on above: Performed By: #### C MP #### [facility] [address] [place] [address] Dr. Dwight Waters FK506 (TACROLIMUS) WHOLE BLO ODon 12-31-2022 Tacrolimus (FK506), Blood 5.6 ng/mL Normal 2.0-20.0 [facility] Comment on above: Result Comment: Trou gh (immediately following transplant) 15.0 . Trough (steady state, 2 weeks or more after transplant): 3.0 - 8.0 . Performed by LC-MS/MS technology. Performed By: #### C MP #### [facility] [address] [place] [address] Dr. Dwight Waters ALKALINE PHOSPHAon ALP [Catalytic activity/Vol] 96 U/L Normal 46-116 [facility] Comment on above: Performed By: #### C BC #### [facility] [address] [place] [address] Dr. Dwight Waters BILIRUBIN CONJUGATED (DIRECT )on 12-29-2022 BILI, CONJUGATED 0.3 mg/dL Critically high 0.0-0.2 [facility] Comment on above: Performed By: #### C BC #### [facility] [address] [place] [address] Dr. Dwight Waters BILIRUBIN TOTALon 12-29-2022 Bilirubin [Mass/Vol] 1.1 mg/dL Critically high 0.2-1.0 [facility] Comment on above: Performed By: #### C BC #### [facility] [facility] [address] [place] [address] Dr. Dwight Waters CBC AUTO DIFFon 12-29-2022 BASO # 0.1 103/ul Normal 0.0-0.1 [facility] Comment on above: Performed By: #### C MP #### [facility] [address] [place] [address] Dr. Dwight Waters Basophils/100 WBC (Bld) 0.8 % Normal 0.2-2.0 [facility] Comment on above: Performed By: #### C MP #### [facility] [address] [place] [address] Dr. Dwight Waters EO # 0.2 103/ul Normal 0.0-0.7 [facility] Comment on above: Performed By: #### C MP #### [facility] [address] [place] [address] Dr. Dwight Waters Eosinophils/100 WBC (Bld) 3.0 % Normal 0.9-7.0 [facility] Comment on above: Performed By: #### C MP #### [facility] [address] [place] [address] Dr. Dwight Waters Erythrocyte distribution width (RBC) [Ratio] 12.9 % Normal 11.0-15.0 [facility] Comment on above: Performed By: #### C MP #### [facility] [address] [place] [address] Dr. Dwight Waters Hematocrit (Bld) [Volume fraction] 46.9 % Normal 42.0-54.0 [facility] Comment on above: Performed By: #### C MP #### [facility] [address] [place] [address] Dr. Dwight Waters Hemoglobin (Bld) [Mass/Vol] 16.1 g/dL Normal 14.0-18.0 [facility] Comment on above: Performed By: #### C MP #### [facility] [address] [place] [address] Dr. Dwight Waters IG # 0.01 10e3/ul Normal 0.00-0.03 [facility] Comment on above: Performed By: #### C MP #### [facility] [address] [place] [address] Dr. Dwight Waters IG % 0.2 % Normal 0.0-0.5 [facility] Comment on above: Performed By: #### C MP #### [facility] [address] [place] [address] Dr. Dwight Waters LYMPH # 1.8 103/ul Normal 1.2-3.8 [facility] Comment on above: Performed By: #### C MP #### [facility] [address] [place] [address] Dr. Dwight Waters Lymphocytes/100 WBC (Bld) 27.9 % Normal 20.5-60.0 [facility] Comment on above: Performed By: #### C MP #### [facility] [address] [place] [address] Dr. Dwight Waters MANUAL DIFF REQ NO Normal [facility] Comment on above: Performed By: #### C MP #### [facility] [address] [place] [address] Dr. Dwight Waters MCH (RBC) [Entitic mass] 28.5 pg Normal 25.9-34.0 [facility] Comment on above: Performed By: #### C MP #### [facility] [address] [place] [address] Dr. Dwight Waters MCHC (RBC) [Mass/Vol] 34.3 g/dL Normal 29.9-35.2 [facility] Comment on above: Performed By: #### C MP #### [facility] [address] [place] [address] Dr. Dwight Waters MCV (RBC) [Entitic vol] 83.2 fL Normal 80.0-94.0 [facility] Comment on above: Performed By: #### C MP #### [facility] [address] [place] [address] Dr. Dwight Waters MONO # 0.5 103/ul Normal 0.3-0.8 [facility] Comment on above: Performed By: #### C MP #### [facility] [address] [place] [address] Dr. Dwight Waters Monocytes/100 WBC (Bld) 8.1 % Normal 1.7-12.0 [facility] Comment on above: Performed By: #### C MP #### [facility] [address] [place] [address] Dr. Dwight Waters NEUT # 3.8 103/ul Normal 1.4-6.5 [facility] Comment on above: Performed By: #### C MP #### [facility] [address] [place] [address] Dr. Dwight Waters Neutrophils/100 WBC (Bld) 60.0 % Normal 43.0-75.0 [facility] Comment on above: Performed By: #### C MP #### [facility] [address] [place] [address] Dr. Dwight Waters Platelet mean volume (Bld) [Entitic vol] 9.2 fL Critically low 9.5-13.5 [facility] Comment on above: Performed By: #### C MP #### [facility] [address] [address] [address] Dwight Waters PLT 225 103/ul Normal 150-450 [facility] Comment on above: Performed By: #### C MP #### [facility] [address] [address] [address] Dwight Waters RBC 5.64 106/ul Normal 4.70-6.10 [facility] Comment on above: Performed By: #### C MP #### [facility] [address] [address] [address] Dwight Waters WBC 6.3 103/ul Normal 4.0-11.0 [facility] Comment on above: Performed By: #### C MP #### [facility] [address] [place] [address] Dr. Dwight Waters GGTon 12-29-2022 Gamma glutamyl transferase [Catalytic activity/Vol] 24 U/L Normal 15-85 [facility] Comment on above: Performed By: #### C MP #### [facility] [address] [place] [address] Dr. Dwight Waters LIPID PROFILEon 12-29-2022 CHOL-HDL RATIO NORM SEE BELOW Normal [facility] Comment on above: Result Comment: 3.3 - 4.4 LOW RISK 4.4 - 7.1 AVERAGE RISK 7.1 - 11.0 MODERATE RISK >11.0 HIGH RISK Performed By: #### U RTPCR #### [facility] [address] [place] [address] Dr. Dwight Waters Cholesterol [Mass/Vol] 87 mg/dL Normal <=200 [facility] Comment on above: Performed By: #### U RTPCR #### [facility] [address] [place] [address] Dr. Dwight Waters Cholesterol in HDL [Mass/Vol] 44 mg/dL Normal 40-60 [facility] Comment on above: Performed By: #### U RTPCR #### [facility] [address] [place], [place] [id number] Dr. Dwight Waters Cholesterol in LDL [Mass/Vol] 33.0 mg/dL Normal [facility] Comment on above: Performed By: #### U RTPCR #### [facility] [address] [address] [address] Dwight Waters Cholesterol.total/Chol esterol in HDL [Mass ratio] 2.0 {ratio} Normal [facility] Comment on above: Performed By: #### U RTPCR #### [facility] [address] [address] [address] Dwight Waters HDL NORMAL > or = 60 mg/dl - LO W CARDIOVASCULAR RISK <40 mg/dl - HIGH CARDIOVASCULAR RISK Normal [facility] Comment on above: Performed By: #### U RTPCR #### [facility] [address] [place] [address] Dr. Dwight Waters LDL CALC NORMAL SEE BELOW Normal [facility] Comment on above: Result Comment: <100 mg/dl OPTIMAL 100 - 129 mg/dl NEAR OR ABOVE OPTIMAL 130 - 159 mg/dl BORDERLINE HIGH 160 - 189 mg/dl HIGH >190 mg/dl VERY HIGH Performed By: #### U RTPCR #### [facility] [address] [address] [address] Dwight Waters Triglyceride [Mass/Vol] 50 mg/dL Normal <=150 [facility] Comment on above: Performed By: #### U RTPCR #### [facility] [address] [address] [address] Dwight Waters VLDL CALC 10.0 mg/dL Normal [facility] Comment on above: Performed By: #### U RTPCR #### [facility] [address] [address] [address] Dwight Waters MAGNESIUMon 12-29-2022 Magnesium [Mass/Vol] 1.6 mg/dL Critically low 1.8-2.4 [facility] Comment on above: Performed By: #### C BC #### [facility] [address] [place] [address] Dr. Dwight Waters RENAL FUNCTION PANELon 12-29 Albumin [Mass/Vol] 3.9 g/dL Normal 3.4-5.0 [facility] Comment on above: Performed By: #### C BC #### [facility] [address] [place] [address] Dr. Dwight Waters Calcium [Mass/Vol] 9.2 mg/dL Normal 8.5-10.1 [facility] Comment on above: Performed By: #### C BC #### [facility] [address] [place] [address] Dr. Dwight Waters Chloride [Moles/Vol] 109 mmol/L Critically high 98-107 [facility] Comment on above: Performed By: #### C BC #### [facility] [address] [place] [address] Dr. Dwight Waters CO2 [Moles/Vol] 27.0 mmol/L Normal 21.0-32.0 [facility] Comment on above: Performed By: #### C BC #### [facility] [address] [place] [address] Dr. Dwight Waters Creatinine [Mass/Vol] 1.02 mg/dL Normal 0.70-1.30 [facility] Comment on above: Performed By: #### C BC #### [facility] [address] [place] [address] Dr. Dwight Waters EGFR-AF SWISS >60 Normal >=60 [facility] Comment on above: Performed By: #### C BC #### [facility] [address] [place] [address] Dr. Dwight Waters EGFR-NON AF SWISS >60 Normal >=60 [facility] Comment on above: Performed By: #### C BC #### [facility] [address] [place] [address] Dr. Dwight Waters Glucose [Mass/Vol] 117 mg/dL Critically high 74-[address] [facility] Comment on above: Performed By: #### C BC #### [facility] [address] [place] [address] Dr. Dwight Waters Phosphate [Mass/Vol] 3.2 mg/dL Normal 2.6-4.7 [facility] Comment on above: Performed By: #### C BC #### [facility] [address] [address] [address] Dwight Waters Potassium [Moles/Vol] 4.1 mmol/L Normal 3.5-5.1 [facility] Comment on above: Performed By: #### C BC #### [facility] [address] [address] [address] Dwight Waters Sodium [Moles/Vol] 144 mmol/L Normal 136-145 [facility] Comment on above: Performed By: #### C BC #### [facility] [address] [place] [address] Dr. Dwight Waters Urea nitrogen [Mass/Vol] 13.0 mg/dL Normal 7.0-18.0 [facility] Comment on above: Performed By: #### C BC #### [facility] [address] [place] [address] Dr. Dwight Waters SGOTon 12-29-2022 AST [Catalytic activity/Vol] 21 U/L Normal 15-37 [facility] Comment on above: Performed By: #### C BC #### [facility] [address] [place] [address] Dr. Dwight Waters SGPTon 12-29-2022 ALT [Catalytic activity/Vol] 32 U/L Normal 16-63 [facility] Comment on above: Performed By: #### C BC #### [facility] [address] [place] [address] Dr. Dwight Waters URINE T PROTEIN CREAT RATIOo n 12-29-2022 Protein (U) [Mass/Vol] 14.3 mg/dL Critically high <=12.0 [facility] Comment on above: Performed By: #### U RTPCR #### [facility] [address] [place] [address] Dr. Dwight Waters UR PROT CREAT RAT 0.17 Normal [facility] Comment on above: Performed By: #### U RTPCR #### [facility] [address] [place] [address] Dr. Dwight Waters URINE CREAT 86.58 mg/dL Normal 20.00-300.00 [facility] Comment on above: Performed By: #### U RTPCR #### [facility] [address] [place] [address] Dr. Dwight Waters FK506 (TACROLIMUS) WHOLE BLO ODon 11-06-2022 Tacrolimus (FK506), Blood 4.9 ng/mL Normal 2.0-20.0 [facility] Comment on above: Result Comment: Trou gh (immediately following transplant) 15.0 . Trough (steady state, 2 weeks or more after transplant): 3.0 - 8.0 . Performed by LC-MS/MS technology. Performed By: #### U RTPCR #### [facility] [address] [place] [address] Dr. Dwight Waters ALKALINE PHOSPHAon ALP [Catalytic activity/Vol] 86 U/L Normal 46-116 [facility] Comment on above: Performed By: #### U RTPCR #### [facility] [address] [place] [address] Dr. Dwight Waters BILIRUBIN CONJUGATED (DIRECT )on 11-04-2022 BILI, CONJUGATED 0.2 mg/dL Normal 0.0-0.2 [facility] Comment on above: Performed By: #### U RTPCR #### [facility] [address] [place] [address] Dr. Dwight Waters BILIRUBIN TOTALon 11-04-2022 Bilirubin [Mass/Vol] 0.8 mg/dL Normal 0.2-1.0 [facility] Comment on above: Performed By: #### U RTPCR #### [facility] [address] [place] [address] Dr. Dwight Waters CBC AUTO DIFFon 11-04-2022 BASO # 0.1 103/ul Normal 0.0-0.1 [facility] Comment on above: Performed By: #### U RTPCR #### [facility] [address] [place] [address] Dr. Dwight Waters Basophils/100 WBC (Bld) 0.9 % Normal 0.2-2.0 [facility] Comment on above: Performed By: #### U RTPCR #### [facility] [address] [place] [address] Dr. Dwight Waters EO # 0.2 103/ul Normal 0.0-0.7 [facility] Comment on above: Performed By: #### U RTPCR #### [facility] [address] [place] [address] Dr. Dwight Waters Eosinophils/100 WBC (Bld) 3.7 % Normal 0.9-7.0 [facility] Comment on above: Performed By: #### U RTPCR #### [facility] [address] [place] [address] Dr. Dwight Waters Erythrocyte distribution width (RBC) [Ratio] 12.9 % Normal 11.0-15.0 [facility] Comment on above: Performed By: #### U RTPCR #### [facility] [address] [place] [address] Dr. Dwight Waters Hematocrit (Bld) [Volume fraction] 48.3 % Normal 42.0-54.0 [facility] Comment on above: Performed By: #### U RTPCR #### [facility] [address] [place] [address] Dr. Dwight Waters Hemoglobin (Bld) [Mass/Vol] 15.6 g/dL Normal 14.0-18.0 [facility] Comment on above: Performed By: #### U RTPCR #### [facility] [address] [place] [address] Dr. Dwight Waters IG # 0.01 10e3/ul Normal 0.00-0.03 [facility] Comment on above: Performed By: #### U RTPCR #### [facility] [address] [place] [address] Dr. Dwight Waters IG % 0.2 % Normal 0.0-0.5 [facility] Comment on above: Performed By: #### U RTPCR #### [facility] [address] [place] [address] Dr. Dwight Waters LYMPH # 1.9 103/ul Normal 1.2-3.8 [facility] Comment on above: Performed By: #### U RTPCR #### [facility] [address] [address] [address] Dwight Waters Lymphocytes/100 WBC (Bld) 33.0 % Normal 20.5-60.0 [facility] Comment on above: Performed By: #### U RTPCR #### [facility] [address] [place] [address] Dr. Dwight Waters MANUAL DIFF REQ NO Normal [facility] Comment on above: Performed By: #### U RTPCR #### [facility] [address] [address] [address] Dwight Waters MCH (RBC) [Entitic mass] 27.6 pg Normal 25.9-34.0 [facility] Comment on above: Performed By: #### U RTPCR #### [facility] [address] [place] [address] Dr. Dwight Waters MCHC (RBC) [Mass/Vol] 32.3 g/dL Normal 29.9-35.2 [facility] Comment on above: Performed By: #### U RTPCR #### [facility] [address] [place] [address] Dr. Dwight Waters MCV (RBC) [Entitic vol] 85.5 fL Normal 80.0-94.0 [facility] Comment on above: Performed By: #### U RTPCR #### [facility] [address] [place] [address] Dr. Dwight Waters MONO # 0.5 103/ul Normal 0.3-0.8 [facility] Comment on above: Performed By: #### U RTPCR #### [facility] [address] [place] [address] Dr. Dwight Waters Monocytes/100 WBC (Bld) 8.8 % Normal 1.7-12.0 [facility] Comment on above: Performed By: #### U RTPCR #### [facility] [address] [place] [address] Dr. Dwight Waters NEUT # 3.1 103/ul Normal 1.4-6.5 [facility] Comment on above: Performed By: #### U RTPCR #### [facility] [address] [address] [address] Dwight Waters Neutrophils/100 WBC (Bld) 53.4 % Normal 43.0-75.0 [facility] Comment on above: Performed By: #### U RTPCR #### [facility] [address] [address] [address] Dwight Waters Platelet mean volume (Bld) [Entitic vol] 9.2 fL Critically low 9.5-13.5 [facility] Comment on above: Performed By: #### U RTPCR #### [facility] [address] [address] [address] Dwight Waters PLT 255 103/ul Normal 150-450 [facility] Comment on above: Performed By: #### U RTPCR #### [facility] [address] [place] [address] Dr. Dwight Waters RBC 5.65 106/ul Normal 4.70-6.10 [facility] Comment on above: Performed By: #### U RTPCR #### [facility] [address] [address] [address] Dwight Waters WBC 5.7 103/ul Normal 4.0-11.0 [facility] Comment on above: Performed By: #### U RTPCR #### [facility] [address] [place] [address] Dr. Dwight Waters GGTon 11-04-2022 Gamma glutamyl transferase [Catalytic activity/Vol] 22 U/L Normal 15-85 [facility] Comment on above: Performed By: #### U RTPCR #### [facility] [address] [place] [address] Dr. Dwight Waters MAGNESIUMon 11-04-2022 Magnesium [Mass/Vol] 1.8 mg/dL Normal 1.8-2.4 [facility] Comment on above: Performed By: #### U RTPCR #### [facility] [address] [place] [address] Dr. Dwight Waters RENAL FUNCTION PANELon 11-04 Albumin [Mass/Vol] 3.8 g/dL Normal 3.4-5.0 [facility] Comment on above: Performed By: #### U RTPCR #### [facility] [address] [address] [address] Dwight Waters Calcium [Mass/Vol] 9.3 mg/dL Normal 8.5-10.1 [facility] Comment on above: Performed By: #### U RTPCR #### [facility] [address] [address] [address] Dwight Waters Chloride [Moles/Vol] 107 mmol/L Normal 98-107 [facility] Comment on above: Performed By: #### U RTPCR #### [facility] [address] [place] [address] Dr. Dwight Waters CO2 [Moles/Vol] 29.2 mmol/L Normal 21.0-32.0 [facility] Comment on above: Performed By: #### U RTPCR #### [facility] [address] [place] [address] Dr. Dwight Waters Creatinine [Mass/Vol] 1.07 mg/dL Normal 0.70-1.30 [facility] Comment on above: Performed By: #### U RTPCR #### [facility] [address] [place] [address] Dr. Dwight Waters EGFR-AF SWISS >60 Normal >=60 [facility] Comment on above: Performed By: #### U RTPCR #### [facility] [address] [place] [address] Dr. Dwight Waters EGFR-NON AF SWISS >60 Normal >=60 [facility] Comment on above: Performed By: #### U RTPCR #### [facility] [address] [place] [address] Dr. Dwight Waters Glucose [Mass/Vol] 106 mg/dL Normal 74-106 [facility] Comment on above: Performed By: #### U RTPCR #### [facility] [address] [place] [address] Dr. Dwight Waters Phosphate [Mass/Vol] 2.8 mg/dL Normal 2.6-4.7 [facility] Comment on above: Performed By: #### U RTPCR #### [facility] [address] [place] [address] Dr. Dwight Waters Potassium [Moles/Vol] 4.1 mmol/L Normal 3.5-5.1 [facility] Comment on above: Performed By: #### U RTPCR #### [facility] [address] [place] [address] Dr. Dwight Waters Sodium [Moles/Vol] 143 mmol/L Normal 136-145 [facility] Comment on above: Performed By: #### U RTPCR #### [facility] [address] [place] [address] Dr. Dwight Waters Urea nitrogen [Mass/Vol] 12.0 mg/dL Normal 7.0-18.0 [facility] Comment on above: Performed By: #### U RTPCR #### [facility] [address] [place] [address] Dr. Dwight Waters SGOTon 11-04-2022 AST [Catalytic activity/Vol] 19 U/L Normal 15-37 [facility] Comment on above: Performed By: #### U RTPCR #### [facility] [address] [place] [address] Dr. Dwight Waters SGPTon 11-04-2022 ALT [Catalytic activity/Vol] 28 U/L Normal 16-63 [facility] Comment on above: Performed By: #### U RTPCR #### [facility] [address] [place] [address] Dr. Dwight Waters URINE T PROTEIN CREAT RATIOo n 11-04-2022 Protein (U) [Mass/Vol] 10.7 mg/dL Normal <=12.0 [facility] Comment on above: Performed By: #### U RTPCR #### [facility] [address] [place] [address] Dr. Dwight Waters UR PROT CREAT RAT 0.13 Normal [facility] Comment on above: Performed By: #### U RTPCR #### [facility] [address] [place] [address] Dr. Dwight Waters URINE CREAT 84.50 mg/dL Normal 20.00-300.00 [facility] Comment on above: Performed By: #### U RTPCR #### [facility] [address] [place] [address] Dr. Dwight Waters FK506 (TACROLIMUS) WHOLE BLO ODon 09-18-2022 Tacrolimus (FK506), Blood 4.6 ng/mL Normal 2.0-20.0 [facility] Comment on above: Result Comment: Trou gh (immediately following transplant) 15.0 . Trough (steady state, 2 weeks or more after transplant): 3.0 - 8.0 . Performed by LC-MS/MS technology. Performed By: #### U RTPCR #### [facility] [address] [place] [address] Dr. Dwight Waters BK VIRUS PCR QUANTon 022 BKV DNA QUANT PCR PLASMA Negative Normal Negative [facility] Comment on above: Result Comment: No B K DNA detected. . The linear range of the assay is 22 - 100,000,000 IU/mL. Performed By: #### U RTPCR #### [facility] [address] [place] [address] Dr. Dwight Waters Log10 BKV DNA Plasma Normal [facility] Comment on above: Performed By: #### U RTPCR #### [facility] [address] [place] [address] Dr. Dwight Waters ALKALINE PHOSPHAon ALP [Catalytic activity/Vol] 92 U/L Normal 46-116 [facility] Comment on above: Performed By: #### U RTPCR #### [facility] [address] [place] [address] Dr. Dwight Waters BILIRUBIN CONJUGATED (DIRECT )on 09-15-2022 BILI, CONJUGATED 0.3 mg/dL Critically high 0.0-0.2 [facility] Comment on above: Performed By: #### U RTPCR #### [facility] [address] [place] [address] Dr. Dwight Waters BILIRUBIN TOTALon 09-15-2022 Bilirubin [Mass/Vol] 1.1 mg/dL Critically high 0.2-1.0 [facility] Comment on above: Performed By: #### U RTPCR #### [facility] [address] [place] [address] Dr. Dwight Waters CBC AUTO DIFFon 09-15-2022 BASO # 0.1 103/ul Normal 0.0-0.1 [facility] Comment on above: Performed By: #### C BC #### [facility] [address] [place] [address] Dr. Dwight Waters Basophils/100 WBC (Bld) 0.8 % Normal 0.2-2.0 [facility] Comment on above: Performed By: #### C BC #### [facility] [address] [place] [address] Dr. Dwight Waters EO # 0.2 103/ul Normal 0.0-0.7 [facility] Comment on above: Performed By: #### C BC #### [facility] [address] [place] [address] Dr. Dwight Waters Eosinophils/100 WBC (Bld) 3.5 % Normal 0.9-7.0 [facility] Comment on above: Performed By: #### C BC #### [facility] [address] [place] [address] Dr. Dwight Waters Erythrocyte distribution width (RBC) [Ratio] 13.0 % Normal 11.0-15.0 [facility] Comment on above: Performed By: #### C BC #### [facility] [address] [place] [address] Dr. Dwight Waters Hematocrit (Bld) [Volume fraction] 50.0 % Normal 42.0-54.0 [facility] Comment on above: Performed By: #### C BC #### [facility] [address] [place] [address] Dr. Dwight Waters Hemoglobin (Bld) [Mass/Vol] 16.0 g/dL Normal 14.0-18.0 [facility] Comment on above: Performed By: #### C BC #### [facility] [address] [place] [address] Dr. Dwight Waters IG # 0.02 10e3/ul Normal 0.00-0.03 [facility] Comment on above: Performed By: #### C BC #### [facility] [address] [place] [address] Dr. Dwight Waters IG % 0.3 % Normal 0.0-0.5 [facility] Comment on above: Performed By: #### C BC #### [facility] [address] [place] [address] Dr. Dwight Waters LYMPH # 1.8 103/ul Normal 1.2-3.8 [facility] Comment on above: Performed By: #### C BC #### [facility] [address] [place] [address] Dr. Dwight Waters Lymphocytes/100 WBC (Bld) 26.5 % Normal 20.5-60.0 [facility] Comment on above: Performed By: #### C BC #### [facility] [address] [place] [address] Dr. Dwight Waters MANUAL DIFF REQ NO Normal [facility] Comment on above: Performed By: #### C BC #### [facility] [address] [place] [address] Dr. Dwight Waters MCH (RBC) [Entitic mass] 28.1 pg Normal 25.9-34.0 [facility] Comment on above: Performed By: #### C BC #### [facility] [address] [place] [address] Dr. Dwight Waters MCHC (RBC) [Mass/Vol] 32.0 g/dL Normal 29.9-35.2 [facility] Comment on above: Performed By: #### C BC #### [facility] [address] [place] [address] Dr. Dwight Waters MCV (RBC) [Entitic vol] 87.9 fL Normal 80.0-94.0 [facility] Comment on above: Performed By: #### C BC #### [facility] [address] [place] [address] Dr. Dwight Waters MONO # 0.5 103/ul Normal 0.3-0.8 [facility] Comment on above: Performed By: #### C BC #### [facility] [address] [place] [address] Dr. Dwight Waters Monocytes/100 WBC (Bld) 8.1 % Normal 1.7-12.0 [facility] Comment on above: Performed By: #### C BC #### [facility] [address] [place] [address] Dr. Dwight Waters NEUT # 4.0 103/ul Normal 1.4-6.5 [facility] Comment on above: Performed By: #### C BC #### [facility] [address] [place] [address] Dr. Dwight Waters Neutrophils/100 WBC (Bld) 60.8 % Normal 43.0-75.0 [facility] Comment on above: Performed By: #### C BC #### [facility] [address] [place] [address] Dr. Dwight Waters Platelet mean volume (Bld) [Entitic vol] 9.4 fL Critically low 9.5-13.5 [facility] Comment on above: Performed By: #### C BC #### [facility] [address] [place] [address] Dr. Dwight Waters PLT 265 103/ul Normal 150-450 [facility] Comment on above: Performed By: #### C BC #### [facility] [address] [place] [address] Dr. Dwight Waters RBC 5.69 106/ul Normal 4.70-6.10 [facility] Comment on above: Performed By: #### C BC #### [facility] [address] [place] [address] Dr. Dwight Waters WBC 6.6 103/ul Normal 4.0-11.0 [facility] Comment on above: Performed By: #### C BC #### [facility] [address] [place] [address] Dr. Dwight Waters GGTon 09-15-2022 Gamma glutamyl transferase [Catalytic activity/Vol] 23 U/L Normal 15-85 [facility] Comment on above: Performed By: #### U RTPCR #### [facility] [address] [place] [address] Dr. Dwight Waters MAGNESIUMon 09-15-2022 Magnesium [Mass/Vol] 1.8 mg/dL Normal 1.8-2.4 [facility] Comment on above: Performed By: #### U RTPCR #### [facility] [address] [place] [address] Dr. Dwight Waters RENAL FUNCTION PANELon 09-15 Albumin [Mass/Vol] 4.1 g/dL Normal 3.4-5.0 [facility] Comment on above: Performed By: #### C BC #### [facility] [address] [place] [address] Dr. Dwight Waters Calcium [Mass/Vol] 9.3 mg/dL Normal 8.5-10.1 [facility] Comment on above: Performed By: #### C BC #### [facility] [address] [place] [address] Dr. Dwight Waters Chloride [Moles/Vol] 107 mmol/L Normal 98-107 [facility] Comment on above: Performed By: #### C BC #### [facility] [address] [place] [address] Dr. Dwight Waters CO2 [Moles/Vol] 25.6 mmol/L Normal 21.0-32.0 [facility] Comment on above: Performed By: #### C BC #### [facility] [address] [place] [address] Dr. Dwight Waters Creatinine [Mass/Vol] 1.01 mg/dL Normal 0.70-1.30 [facility] Comment on above: Performed By: #### C BC #### [facility] [address] [place] [address] Dr. Dwight Waters EGFR-AF SWISS >60 Normal >=60 [facility] Comment on above: Performed By: #### C BC #### [facility] [address] [place] [address] Dr. Dwight Waters EGFR-NON AF SWISS >60 Normal >=60 [facility] Comment on above: Performed By: #### C BC #### [facility] [address] [place] [address] Dr. Dwight Waters Glucose [Mass/Vol] 119 mg/dL Critically high 74-[address] [facility] Comment on above: Performed By: #### C BC #### [facility] [address] [address] [address] Dwight Waters Phosphate [Mass/Vol] 2.8 mg/dL Normal 2.6-4.7 [facility] Comment on above: Performed By: #### C BC #### [facility] [address] [address] [address] Dwight Waters Potassium [Moles/Vol] 4.0 mmol/L Normal 3.5-5.1 [facility] Comment on above: Performed By: #### C BC #### [facility] [address] [place] [address] Dr. Dwight Waters Sodium [Moles/Vol] 141 mmol/L Normal 136-145 [facility] Comment on above: Performed By: #### C BC #### [facility] [address] [address] [address] Dwight Waters Urea nitrogen [Mass/Vol] 15.0 mg/dL Normal 7.0-18.0 [facility] Comment on above: Performed By: #### C BC #### [facility] [address] [place] [address] Dr. Dwight Waters SGOTon 09-15-2022 AST [Catalytic activity/Vol] 18 U/L Normal 15-37 [facility] Comment on above: Performed By: #### U RTPCR #### [facility] [address] [place] [address] Dr. Dwight Waters SGPTon 09-15-2022 ALT [Catalytic activity/Vol] 32 U/L Normal 16-63 [facility] Comment on above: Performed By: #### C BC #### [facility] [address] [place] [address] Dr. Dwight Waters URINE T PROTEIN CREAT RATIOo n 09-15-2022 Protein (U) [Mass/Vol] 14.1 mg/dL Critically high <=12.0 [facility] Comment on above: Performed By: #### U RTPCR #### [facility] [address] [address] [address] Dwight Waters UR PROT CREAT RAT 0.14 Normal [facility] Comment on above: Performed By: #### U RTPCR #### [facility] [address] [place], [place] [address] Dr. Dwight Waters URINE CREAT 98.89 mg/dL Normal 20.00-300.00 [facility] Comment on above: Performed By: #### U RTPCR #### [facility] [address] [place], [place] [address] Dr. Dwight Waters US CAROTID ART BILon [...] MÓNICA JIMENEZ Date: 2022-08-28 13:20 Normal [facility] FK506 (TACROLIMUS) WHOLE BLO ODon 08-17-2022 Tacrolimus (FK506), Blood 9.9 ng/mL Normal 2.0-20.0 [facility] Comment on above: Result Comment: Trou gh (immediately following transplant) 15.0 . Trough (steady state, 2 weeks or more after transplant): 3.0 - 8.0 . Performed by LC-MS/MS technology. Performed By: #### F [id number] #### [facility] [address] [place] [address] Dr. Dwight Waters BK VIRUS PCR QUANTon 022 BKV DNA QUANT PCR PLASMA Negative Normal Negative [facility] Comment on above: Result Comment: No B K DNA detected. . The linear range of the assay is 22 - 100,000,000 IU/mL. Performed By: #### U RTPCR #### [facility] [address] [place] [address] Dr. Dwight Waters Log10 BKV DNA Plasma Normal [facility] Comment on above: Performed By: #### U RTPCR #### [facility] [address] [place] [address] Dr. Dwight Waters ALBUMINon 08-14-2022 Albumin [Mass/Vol] 4.2 g/dL Normal 3.4-5.0 [facility] Comment on above: Performed By: #### F [id number] #### [facility] [address] [place] [address] Dr. Dwight Waters ALKALINE PHOSPHAon ALP [Catalytic activity/Vol] 92 U/L Normal 46-116 [facility] Comment on above: Performed By: #### C BC #### [facility] [address] [place] [address] Dr. Dwight Waters BILIRUBIN CONJUGATED (DIRECT )on 08-14-2022 BILI, CONJUGATED 0.3 mg/dL Critically high 0.0-0.2 [facility] Comment on above: Performed By: #### F [id number] #### [facility] [address] [place] [address] Dr. Dwight Waters BILIRUBIN TOTALon 08-14-2022 Bilirubin [Mass/Vol] 1.5 mg/dL Critically high 0.2-1.0 [facility] Comment on above: Performed By: #### F [id number] #### [facility] [address] [place] [address] Dr. Dwight Waters BUNon 08-14-2022 Urea nitrogen [Mass/Vol] 11.0 mg/dL Normal 7.0-18.0 [facility] Comment on above: Performed By: #### C BC #### [facility] [address] [place] [address] Dr. Dwight Waters CALCIUMon 08-14-2022 Calcium [Mass/Vol] 9.4 mg/dL Normal 8.5-10.1 [facility] Comment on above: Performed By: #### F [id number] #### [facility] [address] [place] [address] Dr. Dwight Waters CBC AUTO DIFFon 08-14-2022 BASO # 0.0 103/ul Normal 0.0-0.1 [facility] Comment on above: Performed By: #### C MP #### [facility] [address] [place] [address] Dr. Dwight Waters Basophils/100 WBC (Bld) 0.5 % Normal 0.2-2.0 [facility] Comment on above: Performed By: #### C MP #### [facility] [address] [place] [address] Dr. Dwight Waters EO # 0.2 103/ul Normal 0.0-0.7 [facility] Comment on above: Performed By: #### C MP #### [facility] [address] [place] [address] Dr. Dwight Waters Eosinophils/100 WBC (Bld) 2.6 % Normal 0.9-7.0 [facility] Comment on above: Performed By: #### C MP #### [facility] [address] [place] [address] Dr. Dwight Waters Erythrocyte distribution width (RBC) [Ratio] 13.1 % Normal 11.0-15.0 [facility] Comment on above: Performed By: #### C MP #### [facility] [address] [place] [address] Dr. Dwight Waters Hematocrit (Bld) [Volume fraction] 47.0 % Normal 42.0-54.0 [facility] Comment on above: Performed By: #### C MP #### [facility] [address] [place] [address] Dr. Dwight Waters Hemoglobin (Bld) [Mass/Vol] 15.3 g/dL Normal 14.0-18.0 [facility] Comment on above: Performed By: #### C MP #### [facility] [address] [place] [address] Dr. Dwight Waters IG # 0.01 10e3/ul Normal 0.00-0.03 [facility] Comment on above: Performed By: #### C MP #### [facility] [address] [place] [address] Dr. Dwight Waters IG % 0.1 % Normal 0.0-0.5 [facility] Comment on above: Performed By: #### C MP #### [facility] [address] [place] [address] Dr. Dwight Waters LYMPH # 2.3 103/ul Normal 1.2-3.8 [facility] Comment on above: Performed By: #### C MP #### [facility] [address] [address] [address] Dwight Waters Lymphocytes/100 WBC (Bld) 29.8 % Normal 20.5-60.0 [facility] Comment on above: Performed By: #### C MP #### [facility] [address] [place] [address] Dr. Dwight Waters MANUAL DIFF REQ NO Normal [facility] Comment on above: Performed By: #### C MP #### [facility] [address] [place] [address] Dr. Dwight Waters MCH (RBC) [Entitic mass] 28.2 pg Normal 25.9-34.0 [facility] Comment on above: Performed By: #### C MP #### [facility] [address] [place] [address] Dr. Dwight Waters MCHC (RBC) [Mass/Vol] 32.6 g/dL Normal 29.9-35.2 [facility] Comment on above: Performed By: #### C MP #### [facility] [address] [place] [address] Dr. Dwight Waters MCV (RBC) [Entitic vol] 86.7 fL Normal 80.0-94.0 [facility] Comment on above: Performed By: #### C MP #### [facility] [address] [place] [address] Dr. Dwight Waters MONO # 0.7 103/ul Normal 0.3-0.8 [facility] Comment on above: Performed By: #### C MP #### [facility] [address] [place] [address] Dr. Dwight Waters Monocytes/100 WBC (Bld) 8.5 % Normal 1.7-12.0 [facility] Comment on above: Performed By: #### C MP #### [facility] [address] [place] [address] Dr. Dwight Waters NEUT # 4.5 103/ul Normal 1.4-6.5 [facility] Comment on above: Performed By: #### C MP #### [facility] [address] [place] [address] Dr. Dwight Waters Neutrophils/100 WBC (Bld) 58.5 % Normal 43.0-75.0 [facility] Comment on above: Performed By: #### C MP #### [facility] [address] [place] [address] Dr. Dwight Waters Platelet mean volume (Bld) [Entitic vol] 9.7 fL Normal 9.5-13.5 [facility] Comment on above: Performed By: #### C MP #### [facility] [address] [place] [address] Dr. Dwight Waters PLT 266 103/ul Normal 150-450 [facility] Comment on above: Performed By: #### C MP #### [facility] [address] [place] [address] Dr. Dwight Waters RBC 5.42 106/ul Normal 4.70-6.10 [facility] Comment on above: Performed By: #### C MP #### [facility] [address] [place] [address] Dr. Dwight Waters WBC 7.6 103/ul Normal 4.0-11.0 [facility] Comment on above: Performed By: #### C MP #### [facility] [address] [place] [address] Dr. Dwight Waters CHLORIDEon 08-14-2022 Chloride [Moles/Vol] 104 mmol/L Normal 98-107 [facility] Comment on above: Performed By: #### C BC #### [facility] [address] [place] [address] Dr. Dwight Waters CO2on 08-14-2022 CO2 [Moles/Vol] 27.9 mmol/L Normal 21.0-32.0 [facility] Comment on above: Performed By: #### C BC #### [facility] [address] [address] [address] Dwight Waters CREATININEon 08-14-2022 Creatinine [Mass/Vol] 1.08 mg/dL Normal 0.70-1.30 [facility] Comment on above: Performed By: #### C BC #### [facility] [address] [address] [address] Dwight Waters EGFR-AF SWISS >60 Normal >=60 [facility] Comment on above: Performed By: #### C BC #### [facility] [address] [place] [address] Dr. Dwight Waters EGFR-NON AF SWISS >60 Normal >=60 [facility] Comment on above: Performed By: #### C BC #### [facility] [address] [place] [address] Dr. Dwight Waters GGTon 08-14-2022 Gamma glutamyl transferase [Catalytic activity/Vol] 24 U/L Normal 15-85 [facility] Comment on above: Performed By: #### F [id number] #### [facility] [address] [place] [address] Dr. Dwight Waters GLUCOSE BLOODon 08-14-2022 Glucose [Mass/Vol] 111 mg/dL Critically high 74-[address] [facility] Comment on above: Performed By: #### C BC #### [facility] [address] [place] [address] Dr. Dwight Waters MAGNESIUMon 08-14-2022 Magnesium [Mass/Vol] 1.4 mg/dL Critically low 1.8-2.4 [facility] Comment on above: Performed By: #### C BC #### [facility] [address] [place] [address] Dr. Dwight Waters NAon 08-14-2022 Sodium [Moles/Vol] 140 mmol/L Normal 136-145 [facility] Comment on above: Performed By: #### F [id number] #### [facility] [address] [place] [address] Dr. Dwight Waters PHOSPHORUSon 08-14-2022 Phosphate [Mass/Vol] 3.1 mg/dL Normal 2.6-4.7 [facility] Comment on above: Performed By: #### C BC #### [facility] [address] [place] [address] Dr. Dwight Waters POTASSIUMon 08-14-2022 Potassium [Moles/Vol] 3.5 mmol/L Normal 3.5-5.1 [facility] Comment on above: Performed By: #### C BC #### [facility] [address] [place] [address] Dr. Dwight Waters SGOTon 08-14-2022 AST [Catalytic activity/Vol] 17 U/L Normal 15-37 [facility] Comment on above: Performed By: #### F [id number] #### [facility] [address] [place] [address] Dr. Dwight Waters SGPTon 08-14-2022 ALT [Catalytic activity/Vol] 22 U/L Normal 16-63 [facility] Comment on above: Performed By: #### F [id number] #### [facility] [address] [place] [address] Dr. Dwight Waters URINE T PROTEIN CREAT RATIOo n 08-14-2022 Protein (U) [Mass/Vol] 10.7 mg/dL Normal <=12.0 [facility] Comment on above: Performed By: #### F [id number] #### [facility] [address] [place] [address] Dr. Dwight Waters UR PROT CREAT RAT 0.10 Normal [facility] Comment on above: Performed By: #### F [id number] #### [facility] [address] [place] [address] Dr. Dwight Waters URINE CREAT 104.28 mg/dL Normal 20.00-300.00 [facility] Comment on above: Performed By: #### F [id number] #### [facility] [address] [place] [address] Dr. Dwight Waters NEPHROSTOMY TUBE REMOVALon 0 [...] physician present for entire procedure: yes [facility] Radiology Study observation (narrative) [facility] FK506 (TACROLIMUS) WHOLE BLO ODon 07-06-2022 Tacrolimus (FK506), Blood 9.5 ng/mL Normal 2.0-20.0 [facility] Comment on above: Result Comment: Trou gh (immediately following transplant) 15.0 . Trough (steady state, 2 weeks or more after transplant): 3.0 - 8.0 . Performed by LC-MS/MS technology. Performed By: #### C MP #### [facility] [address] [place] [address] Dr. Dwight Waters ALBUMINon 07-03-2022 Albumin [Mass/Vol] 3.7 g/dL Normal 3.4-5.0 [facility] Comment on above: Performed By: #### U RTPCR #### [facility] [address] [place] [address] Dr. Dwight Waters ALKALINE PHOSPHAon ALP [Catalytic activity/Vol] 76 U/L Normal 46-116 [facility] Comment on above: Performed By: #### U RTPCR #### [facility] [address] [place] [address] Dr. Dwight Waters BILIRUBIN CONJUGATED (DIRECT )on 07-03-2022 BILI, CONJUGATED 0.3 mg/dL Critically high 0.0-0.2 [facility] Comment on above: Performed By: #### C BC #### [facility] [address] [place] [address] Dr. Dwight Waters BILIRUBIN TOTALon 07-03-2022 Bilirubin [Mass/Vol] 1.4 mg/dL Critically high 0.2-1.0 [facility] Comment on above: Performed By: #### C BC #### [facility] [address] [place] [address] Dr. Dwight Waters BUNon 07-03-2022 Urea nitrogen [Mass/Vol] 15.0 mg/dL Normal 7.0-18.0 [facility] Comment on above: Performed By: #### C BC #### [facility] [address] [place] [address] Dr. Dwight Waters CALCIUMon 07-03-2022 Calcium [Mass/Vol] 9.4 mg/dL Normal 8.5-10.1 [facility] Comment on above: Performed By: #### U RTPCR #### [facility] [address] [place] [address] Dr. Dwight Waters CBC AUTO DIFFon 07-03-2022 BASO # 0.0 103/ul Normal 0.0-0.1 [facility] Comment on above: Performed By: #### U RTPCR #### [facility] [address] [place] [address] Dr. Dwight Waters Basophils/100 WBC (Bld) 0.6 % Normal 0.2-2.0 [facility] Comment on above: Performed By: #### U RTPCR #### [facility] [address] [place] [address] Dr. Dwight Waters EO # 0.2 103/ul Normal 0.0-0.7 [facility] Comment on above: Performed By: #### U RTPCR #### [facility] [address] [place] [address] Dr. Dwight Waters Eosinophils/100 WBC (Bld) 3.5 % Normal 0.9-7.0 [facility] Comment on above: Performed By: #### U RTPCR #### [facility] [address] [place] [address] Dr. Dwight Waters Erythrocyte distribution width (RBC) [Ratio] 12.9 % Normal 11.0-15.0 [facility] Comment on above: Performed By: #### U RTPCR #### [facility] [address] [place] [address] Dr. Dwight Waters Hematocrit (Bld) [Volume fraction] 44.2 % Normal 42.0-54.0 [facility] Comment on above: Performed By: #### U RTPCR #### [facility] [address] [place] [address] Dr. Dwight Waters Hemoglobin (Bld) [Mass/Vol] 14.6 g/dL Normal 14.0-18.0 [facility] Comment on above: Performed By: #### U RTPCR #### [facility] [address] [place] [address] Dr. Dwight Waters IG # 0.02 10e3/ul Normal 0.00-0.03 [facility] Comment on above: Performed By: #### U RTPCR #### [facility] [address] [place] [address] Dr. Dwight Waters IG % 0.3 % Normal 0.0-0.5 [facility] Comment on above: Performed By: #### U RTPCR #### [facility] [address] [place] [address] Dr. Dwight Waters LYMPH # 2.0 103/ul Normal 1.2-3.8 [facility] Comment on above: Performed By: #### U RTPCR #### [facility] [address] [place] [address] Dr. Dwight Waters Lymphocytes/100 WBC (Bld) 28.4 % Normal 20.5-60.0 [facility] Comment on above: Performed By: #### U RTPCR #### [facility] [address] [place] [address] Dr. Dwight Waters MANUAL DIFF REQ NO Normal [facility] Comment on above: Performed By: #### U RTPCR #### [facility] [address] [place] [address] Dr. Dwight Waters MCH (RBC) [Entitic mass] 28.6 pg Normal 25.9-34.0 [facility] Comment on above: Performed By: #### U RTPCR #### [facility] [address] [place] [address] Dr. Dwight Waters MCHC (RBC) [Mass/Vol] 33.0 g/dL Normal 29.9-35.2 [facility] Comment on above: Performed By: #### U RTPCR #### [facility] [address] [place] [address] Dr. Dwight Waters MCV (RBC) [Entitic vol] 86.7 fL Normal 80.0-94.0 [facility] Comment on above: Performed By: #### U RTPCR #### [facility] [address] [place] [address] Dr. Dwight Waters MONO # 0.6 103/ul Normal 0.3-0.8 [facility] Comment on above: Performed By: #### U RTPCR #### [facility] [address] [place] [address] Dr. Dwight Waters Monocytes/100 WBC (Bld) 9.1 % Normal 1.7-12.0 [facility] Comment on above: Performed By: #### U RTPCR #### [facility] [address] [place] [address] Dr. Dwight Waters NEUT # 4.0 103/ul Normal 1.4-6.5 [facility] Comment on above: Performed By: #### U RTPCR #### [facility] [address] [place] [address] Dr. Dwight Waters Neutrophils/100 WBC (Bld) 58.1 % Normal 43.0-75.0 [facility] Comment on above: Performed By: #### U RTPCR #### [facility] [address] [address] [address] Dwight Waters Platelet mean volume (Bld) [Entitic vol] 9.5 fL Normal 9.5-13.5 [facility] Comment on above: Performed By: #### U RTPCR #### [facility] [address] [place] [address] Dr. Dwight Waters PLT 292 103/ul Normal 150-450 [facility] Comment on above: Performed By: #### U RTPCR #### [facility] [address] [place] [address] Dr. Dwight Waters RBC 5.10 106/ul Normal 4.70-6.10 [facility] Comment on above: Performed By: #### U RTPCR #### [facility] [address] [place] [address] Dr. Dwight Waters WBC 6.9 103/ul Normal 4.0-11.0 [facility] Comment on above: Performed By: #### U RTPCR #### [facility] [address] [place] [address] Dr. Dwight Waters CHLORIDEon 07-03-2022 Chloride [Moles/Vol] 108 mmol/L Critically high 98-107 [facility] Comment on above: Performed By: #### C BC #### [facility] [address] [place] [address] Dr. Dwight Waters CO2on 07-03-2022 CO2 [Moles/Vol] 25.2 mmol/L Normal 21.0-32.0 [facility] Comment on above: Performed By: #### C BC #### [facility] [address] [place] [address] Dr. Dwight Waters CREATININEon 07-03-2022 Creatinine [Mass/Vol] 1.03 mg/dL Normal 0.70-1.30 [facility] Comment on above: Performed By: #### U RTPCR #### [facility] [address] [place] [address] Dr. Dwight Waters EGFR-AF SWISS >60 Normal >=60 [facility] Comment on above: Performed By: #### U RTPCR #### [facility] [address] [place] [address] Dr. Dwight Waters EGFR-NON AF SWISS >60 Normal >=60 [facility] Comment on above: Performed By: #### U RTPCR #### [facility] [address] [place] [address] Dr. Dwight Waters GGTon 07-03-2022 Gamma glutamyl transferase [Catalytic activity/Vol] 31 U/L Normal 15-85 [facility] Comment on above: Performed By: #### U RTPCR #### [facility] [address] [place] [address] Dr. Dwight Waters GLUCOSE BLOODon 07-03-2022 Glucose [Mass/Vol] 119 mg/dL Critically high 74-106 [facility] Comment on above: Performed By: #### U RTPCR #### [facility] [address] [place] [address] Dr. Dwight Waters MAGNESIUMon 07-03-2022 Magnesium [Mass/Vol] 1.4 mg/dL Critically low 1.8-2.4 [facility] Comment on above: Performed By: #### C BC #### [facility] [address] [place] [address] Dr. Dwight Waters NAon 07-03-2022 Sodium [Moles/Vol] 142 mmol/L Normal 136-145 [facility] Comment on above: Performed By: #### C MP #### [facility] [address] [place] [address] Dr. Dwight Waters PHOSPHORUSon 07-03-2022 Phosphate [Mass/Vol] 3.4 mg/dL Normal 2.6-4.7 [facility] Comment on above: Performed By: #### C BC #### [facility] [address] [place] [address] Dr. Dwight Waters POTASSIUMon 07-03-2022 Potassium [Moles/Vol] 4.1 mmol/L Normal 3.5-5.1 [facility] Comment on above: Performed By: #### C BC #### [facility] [address] [place], [place] [address] Dr. Dwight Waters SGOTon 07-03-2022 AST [Catalytic activity/Vol] 14 U/L Critically low 15-37 [facility] Comment on above: Performed By: #### C BC #### [facility] [address] [place], [place] [address] Dr. Dwight Waters SGPTon 07-03-2022 ALT [Catalytic activity/Vol] 25 U/L Normal 16-63 [facility] Comment on above: Performed By: #### C BC #### [facility] [address] [place], [place] [address] Dr. Dwight Waters US KIDNEYSon 07-03-2022 US KIDNEYS Ultrasound kidneys, bilateral HISTORY: Transplant of kidney , pain in the right lower quadrant COMPARISON: None. TECHNIQUE: Transabdominal ultrasound imaging of both kidneys was performed. FINDINGS: The [place] kidneys are diffusely echogenic and atrophic with cortical thinning. The right kidney measures 8.3 x 3.5 x 4.07 m and the left measures 9.9 x 3.8 x 3.6 cm. No hydronephrosis of the [place] kidneys. There is a renal transplant in [...] stone involving the renal transplant. 2. Atrophic [place] kidneys. 3. Normal bladder. Electronically authenticated by: ARCELIA PIZARRO Date: 2022-07-03 17:22 Normal [facility] CT Abdomen and Pelvis WO con traston 06-27-2022 IMPRESSION: 1. Both [place] kidneys are atrophic with improvement in right-sided [...] Adrenals: Adrenal glands are unremarkable. Kidneys: Both [place] kidneys are atrophic. Interval improvement in right [place] kidney hydronephrosis since May 15, 2022. Status [...] Adrenals: Adrenal glands are unremarkable. Kidneys: Both [place] kidneys are atrophic. Interval improvement in right [place] kidney hydronephrosis since May 15, 2022. Status [...] aggressive osseous lesions. IMPRESSION IMPRESSION: 1. Both [place] kidneys are atrophic with improvement in right-sided hydronephrosis since May 15, 2022. 2. 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 No hydronephrosis. No discrete perinephric collection. 3. Partially imaged postsurgical changes related to prior liver transplant. 4. The bladder is decompressed, limiting evaluation. [facility] Radiology Study observation (narrative) [facility] CT Abdomen and Pelvis WO con trastOrdered By: Gera Lu on 06-27-2022 [facility] Work Phone: CBC AUTO DIFFon 06-18-2022 BASO # 0.0 103/ul Normal 0.0-0.1 [facility] Comment on above: Performed By: #### U RTPCR #### [facility] [address] [place] [address] Dr. Dwight Waters Basophils/100 WBC (Bld) 0.5 % Normal 0.2-2.0 [facility] Comment on above: Performed By: #### U RTPCR #### [facility] [address] [place] [address] Dr. Dwight Waters EO # 0.2 103/ul Normal 0.0-0.7 [facility] Comment on above: Performed By: #### U RTPCR #### [facility] [address] [place] [address] Dr. Dwight Waters Eosinophils/100 WBC (Bld) 2.3 % Normal 0.9-7.0 [facility] Comment on above: Performed By: #### U RTPCR #### [facility] [address] [place] [address] Dr. Dwight Waters Erythrocyte distribution width (RBC) [Ratio] 12.9 % Normal 11.0-15.0 [facility] Comment on above: Performed By: #### U RTPCR #### [facility] [address] [place] [address] Dr. Dwight Waters Hematocrit (Bld) [Volume fraction] 41.2 % Critically low 42.0-54.0 [facility] Comment on above: Performed By: #### U RTPCR #### [facility] [address] [place] [address] Dr. Dwight Waters Hemoglobin (Bld) [Mass/Vol] 13.3 g/dL Critically low 14.0-18.0 [facility] Comment on above: Performed By: #### U RTPCR #### [facility] [address] [place] [address] Dr. Dwight Waters IG # 0.04 10e3/ul Critically high 0.00-0.03 [facility] Comment on above: Performed By: #### U RTPCR #### [facility] [address] [place] [address] Dr. Dwight Waters IG % 0.5 % Normal 0.0-0.5 [facility] Comment on above: Performed By: #### U RTPCR #### [facility] [address] [place] [address] Dr. Dwight Waters LYMPH # 2.0 103/ul Normal 1.2-3.8 [facility] Comment on above: Performed By: #### U RTPCR #### [facility] [address] [place] [address] Dr. Dwight Waters Lymphocytes/100 WBC (Bld) 22.9 % Normal 20.5-60.0 [facility] Comment on above: Performed By: #### U RTPCR #### [facility] [address] [place] [address] Dr. Dwight Waters MANUAL DIFF REQ NO Normal [facility] Comment on above: Performed By: #### U RTPCR #### [facility] [address] [place] [address] Dr. Dwight Waters MCH (RBC) [Entitic mass] 28.7 pg Normal 25.9-34.0 [facility] Comment on above: Performed By: #### U RTPCR #### [facility] [address] [place] [address] Dr. Dwight Waters MCHC (RBC) [Mass/Vol] 32.3 g/dL Normal 29.9-35.2 [facility] Comment on above: Performed By: #### U RTPCR #### [facility] [address] [place] [address] Dr. Dwight Waters MCV (RBC) [Entitic vol] 88.8 fL Normal 80.0-94.0 [facility] Comment on above: Performed By: #### U RTPCR #### [facility] [address] [place] [address] Dr. Dwight Waters MONO # 0.8 103/ul Normal 0.3-0.8 [facility] Comment on above: Performed By: #### U RTPCR #### [facility] [address] [place] [address] Dr. Dwight Waters Monocytes/100 WBC (Bld) 9.7 % Normal 1.7-12.0 [facility] Comment on above: Performed By: #### U RTPCR #### [facility] [address] [place] [address] Dr. Dwight Waters NEUT # 5.6 103/ul Normal 1.4-6.5 [facility] Comment on above: Performed By: #### U RTPCR #### [facility] [address] [place] [address] Dr. Dwight Waters Neutrophils/100 WBC (Bld) 64.1 % Normal 43.0-75.0 [facility] Comment on above: Performed By: #### U RTPCR #### [facility] [address] [place] [address] Dr. Dwight Waters Platelet mean volume (Bld) [Entitic vol] 10.0 fL Normal 9.5-13.5 [facility] Comment on above: Performed By: #### U RTPCR #### [facility] [address] [place] [address] Dr. Dwight Waters PLT 270 103/ul Normal 150-450 [facility] Comment on above: Performed By: #### U RTPCR #### [facility] [address] [place] [address] Dr. Dwight Waters RBC 4.64 106/ul Critically low 4.70-6.10 [facility] Comment on above: Performed By: #### U RTPCR #### [facility] [address] [place] [address] Dr. Dwight Waters WBC 8.7 103/ul Normal 4.0-11.0 [facility] Comment on above: Performed By: #### U RTPCR #### [facility] [address] [place] [address] Dr. Dwight Waters CULTURE URINEon 06-18-2022 CULTURE URINE Culture Observations : NO GROWTH. Normal [facility] Comment on above: Performed By: #### U RTPCR #### [facility] [address] [place] [address] Dr. Dwight Waters Covid-19 PCR (CVDTBH)on 05-31 SARS-CoV-2 (COVID-19) RNA ESTELITA+probe Ql (Unsp spec) Not detected Normal NOT DETECTED [facility] Comment on above: Result Comment: [...] for this test is supported by the [employer] of Health and Human Service's declaration [...] used). Performed By: #### C BC #### [facility] [address] [place] [address] Dr. Dwight Waters ER URINE PROFILEon 2 Bilirubin Ql (U) Negative Normal NEGATIVE [facility] Comment on above: Performed By: #### U RTPCR #### [facility] [address] [place] [address] Dr. Dwight Waters Clarity (U) CLEAR Normal CLEAR [facility] Comment on above: Performed By: #### U RTPCR #### [facility] [address] [place] [address] Dr. Dwight Waters Color (U) YELLOW Normal YELLOW [facility] Comment on above: Performed By: #### U RTPCR #### [facility] [address] [place] [address] Dr. Dwight Waters ERUAHJenna A micrscopic examination will be performed if indicated. Normal [facility] Comment on above: Performed By: #### U RTPCR #### [facility] [address] [place] [address] Dr. Dwight Waters Glucose Ql (U) Negative Normal NEGATIVE [facility] Comment on above: Performed By: #### U RTPCR #### [facility] [address] [place] [address] Dr. Dwight Waters Hemoglobin Ql (U) LARGE Abnormal NEGATIVE [facility] Comment on above: Performed By: #### U RTPCR #### [facility] [address] [place] [address] Dr. Dwight Waters Ketones Ql (U) Negative Normal NEGATIVE [facility] Comment on above: Performed By: #### U RTPCR #### [facility] [address] [place] [address] Dr. Dwight Waters LEUKOCYTES TRACE Abnormal NEGATIVE [facility] Comment on above: Performed By: #### U RTPCR #### [facility] [address] [place] [address] Dr. Dwight Waters Nitrite Ql (U) Negative Normal NEGATIVE [facility] Comment on above: Performed By: #### U RTPCR #### [facility] [address] [place] [address] Dr. Dwight Waters pH (U) 6.0 [pH] Normal 5-9 [facility] Comment on above: Performed By: #### U RTPCR #### [facility] [address] [place] [address] Dr. Dwight Waters Protein (U) [Mass/Vol] 30 mg/dL Abnormal NEGAT MAYUR/ TRACE [facility] Comment on above: Performed By: #### U RTPCR #### [facility] [address] [place] [address] Dr. Dwight Waters SPEC GRAVITY >=1.030 Abnormal 1.005-<=1.025 [facility] Comment on above: Performed By: #### U RTPCR #### [facility] [address] [place] [address] Dr. Dwight Waters UR MICRO IND INDICATED Normal [facility] Comment on above: Performed By: #### U RTPCR #### [facility] [address] [place] [address] Dr. Dwight Waters Urobilinogen Qn (U) 0.2 {Alyssa'U}/dL Normal 0.2 - 1. 0 [facility] Comment on above: Performed By: #### U RTPCR #### [facility] [address] [place] [address] Dr. Dwight Waters PROF 14(COMP METB)on 022 Albumin [Mass/Vol] 3.7 g/dL Normal 3.4-5.0 [facility] Comment on above: Performed By: #### C MP #### [facility] [address] [place] [address] Dr. Dwight Waters Albumin/Globulin [Mass ratio] 0.9 {ratio} Normal [facility] Comment on above: Performed By: #### C MP #### [facility] [address] [place] [address] Dr. Dwight Waters ALP [Catalytic activity/Vol] 80 U/L Normal 46-116 [facility] Comment on above: Performed By: #### C MP #### [facility] [address] [place] [address] Dr. Dwight Waters ALT [Catalytic activity/Vol] 24 U/L Normal 16-63 [facility] Comment on above: Performed By: #### C MP #### [facility] [address] [place] [address] Dr. Dwight Waters Anion gap [Moles/Vol] 12.9 mmol/L Normal [facility] Comment on above: Performed By: #### C MP #### [facility] [address] [place] [address] Dr. Dwight Waters AST [Catalytic activity/Vol] 17 U/L Normal 15-37 [facility] Comment on above: Performed By: #### C MP #### [facility] [address] [place] [address] Dr. Dwight Waters Bilirubin [Mass/Vol] 0.8 mg/dL Normal 0.2-1.0 [facility] Comment on above: Performed By: #### C MP #### [facility] [address] [place] [address] Dr. Dwight Waters Calcium [Mass/Vol] 9.4 mg/dL Normal 8.5-10.1 [facility] Comment on above: Performed By: #### C MP #### [facility] [address] [place] [address] Dr. Dwight Waters Chloride [Moles/Vol] 106 mmol/L Normal 98-107 [facility] Comment on above: Performed By: #### C MP #### [facility] [address] [address] [address] Dwight Waters CO2 [Moles/Vol] 25.3 mmol/L Normal 21.0-32.0 [facility] Comment on above: Performed By: #### C MP #### [facility] [address] [place] [address] Dr. Dwight Waters Creatinine [Mass/Vol] 1.29 mg/dL Normal 0.70-1.30 [facility] Comment on above: Performed By: #### C MP #### [facility] [address] [place] [address] Dr. Dwight Waters EGFR-AF SWISS >60 Normal >=60 [facility] Comment on above: Performed By: #### C MP #### [facility] [address] [place] [address] Dr. Dwight Waters EGFR-NON AF SWISS 59 mL/min/1.73m2 Critically low >=60 [facility] Comment on above: Performed By: #### C MP #### [facility] [address] [place] [address] Dr. Dwight Waters Globulin (S) [Mass/Vol] 4.2 g/dL Normal [facility] Comment on above: Performed By: #### C MP #### [facility] [address] [place] [address] Dr. Dwight Waters Glucose [Mass/Vol] 106 mg/dL Normal 74-106 [facility] Comment on above: Performed By: #### C MP #### [facility] [address] [place] [address] Dr. Dwight Waters Potassium [Moles/Vol] 4.2 mmol/L Normal 3.5-5.1 [facility] Comment on above: Performed By: #### C MP #### [facility] [address] [address] [address] Dwight Waters Protein [Mass/Vol] 7.9 g/dL Normal 6.4-8.2 [facility] Comment on above: Performed By: #### C MP #### [facility] [address] [address] [address] Dwight Waters Sodium [Moles/Vol] 140 mmol/L Normal 136-145 [facility] Comment on above: Performed By: #### C MP #### [facility] [address] [address] [address] Dwight Waters Urea nitrogen [Mass/Vol] 22.0 mg/dL Critically high 7.0-18.0 [facility] Comment on above: Performed By: #### C MP #### [facility] [address] [place] [address] Dr. Dwight Waters Urea nitrogen/Creatinine [Mass ratio] 17.1 mg/mg Normal [facility] Comment on above: Performed By: #### C MP #### [facility] [address] [place] [address] Dr. Dwight Waters URINE MICROSCOPIC ONLYon BACTERIA TRACE Abnormal NONE SEEN [facility] Comment on above: Performed By: #### U RTPCR #### [facility] [address] [place] [address] Dr. Dwight Waters Bacteria identified Cx Nom (U) INDICATED Normal [facility] Comment on above: Performed By: #### U RTPCR #### [facility] [address] [place] [address] Dr. Dwight Waters CAST NONE SEEN Normal NONE SEEN [facility] Comment on above: Performed By: #### U RTPCR #### [facility] [address] [address] [address] Dwight Waters Crystals LM Nom (Urine sed) NONE SEEN Normal NONE SEEN [facility] Comment on above: Performed By: #### U RTPCR #### [facility] [address] [place] [address] Dr. Dwight aWters Epithelial cells LM Ql (Urine sed) NONE SEEN Normal NONE SEEN /RARE [facility] Comment on above: Performed By: #### U RTPCR #### [facility] [address] [place] [address] Dr. Dwight Waters MUCOUS NONE SEEN Normal NONE SEEN [facility] Comment on above: Performed By: #### U RTPCR #### [facility] [address] [place] [address] Dr. Dwight Waters RBC 5-10 Abnormal 0-2 [facility] Comment on above: Performed By: #### U RTPCR #### [facility] [address] [address] [address] Dwight Waters WBC 10-20 Abnormal NONE SEEN [facility] Comment on above: Performed By: #### U RTPCR #### [facility] [address] [place] [address] Dr. Dwight Waters ALLOSCREEN RECIPIENT (POST T X PRA)on 06-13-2022 AB SPECIFICITY CLASS COMMENT Antibody Specificity testing performed by [employer]. cPRA calculation based on identification of HLA antibody specificities at MFI >2000 and/or presence of CREG antibodies. [facility] Comment on above: Some of the reagents used for testing in the Clinical Histocompatibility Laboratory have yet to be approved by the FDA. Our certification by CLIA to perform high complexity tests allows us to use these reagents in the context of a stringent QC program, and obviates the need for FDA approval.Testing performed by the [facility] Clinical Histocompatibility Laboratory. [facility] number: [id number]. CLIA number: [id number], Director: Carlito Merchant, PhD, D([facility]). ANTIBODY SPECIFICITY INTERPRETATION Detected [facility] CLASS I SPECIFICITIES Not detected [facility] CLASS II SPECIFICITIES Not detected [facility] HLA Ab (S) 0 % 0 [facility] EXTRA MICROon 06-13-2022 [facility] URINE CULTUREOrdered By: Jah Upton on 06-13-2022 Bacteria identified Cx Nom (Unsp spec) Growth [facility] Bacteria identified Cx Nom (Unsp spec) 10,000-50,000 CFU/mL Mixed skin shimon [facility] Comment on above: Multiple bacterial m orphotypes present. Suggest appropriate recollection if clinically indicated. [facility] CBC,PLATELETSon 06-12-2022 Erythrocyte distribution width (RBC) [Ratio] 13.0 % 10.9 - 14.3 % [facility] Hematocrit (Bld) [Volume fraction] 43.2 % 39.6 - 48.8 % [facility] Hemoglobin (Bld) [Mass/Vol] 13.9 g/dL 13.4 - 16.8 g/dL [facility] Interpretation and review of laboratory results Normal [facility] MCH (RBC) [Entitic mass] 28.7 pg 26.1 - 33.3 pg [facility] MCHC (RBC) [Mass/Vol] 32.2 g/dL 31.9 - 36.5 g/dL [facility] MCV (RBC) [Entitic vol] 89.1 fL 79.0 - 94.5 fL [facility] Platelet mean volume (Bld) [Entitic vol] 10.5 fL 8.7 - 12.3 fL [facility] Platelets (Bld) [#/Vol] 269 10*3/uL 146 - 337 K/uL [facility] RBC (Bld) [#/Vol] 4.85 10*6/uL [facility] WBC (Bld) [#/Vol] 7.68 10*3/uL 3.73 - 10. 10 K/uL [facility] CHEM 7 (LYTES,BUN,CREA,GLUC) on 06-12-2022 Anion gap [Moles/Vol] 14 mmol/L 7 - 17 mmol/L [facility] Chloride [Moles/Vol] 106 mmol/L 98 - 10 8 mmol/L [facility] CO2 [Moles/Vol] 25 mmol/L 21 - 31 mmol/L [facility] Creatinine [Mass/Vol] 1.26 mg/dL 0.70 - 1.30 mg/dL [facility] GFR/1.73 sq M.predicted CKD-EPI (S/P/Bld) [Vol rate/Area] 69 >=60 mL/min/1.73m2 [facility] Comment on above: Reported eGFR is bas ed on the CKD-EPI 2020 equation using creatinine, age, and sex. Glucose [Mass/Vol] 83 mg/dL 70 - 99 mg/dL [facility] Osmolality Calc [Osmolality] 295 [facility] Potassium [Moles/Vol] 3.8 mmol/L 3.5 - 5.0 mmol/L [facility] Sodium [Moles/Vol] 141 mmol/L 135 - 145 mmol/L [facility] Urea nitrogen [Mass/Vol] 18 mg/dL 7 - 25 mg/dL [facility] Urea nitrogen/Creatinine [Mass ratio] 14 mg/mg [facility] GGTon 06-12-2022 Gamma glutamyl transferase [Catalytic activity/Vol] 20 U/L 8 - 64 U/L [facility] HEMOGLOBIN [id number] By: Link Roche on 06-12-2022 Average glucose Estimated from glycated hemoglobin (Bld) [Mass/Vol] 126 mg/dL [facility] HbA1c (Bld) [Mass fraction] 6.0 % High 4.7 - 5.6 % [facility] Interpretation and review of laboratory results Abnormal [facility] HEPATIC FUNCTION PANELon Albumin [Mass/Vol] 4.3 g/dL 3.5 - 5.0 g/dL [facility] ALP [Catalytic activity/Vol] 78 U/L 32 - 126 U/L [facility] ALT [Catalytic activity/Vol] 12 U/L 10 - 52 U/L [facility] AST [Catalytic activity/Vol] 16 U/L 10 - 39 U/L [facility] Bilirubin [Mass/Vol] 1.0 mg/dL <1.5 [facility] Bilirubin.direct [Mass/Vol] 0.2 mg/dL <0.3 [facility] Protein [Mass/Vol] 7.5 g/dL 6.4 - 8.3 g/dL [facility] No Panel Informationon 06-12 Interpretation and review of laboratory results Normal [facility] PTH INTACTOrdered By: Marli Lizarraga on 06-12-2022 Interpretation and review of laboratory results Abnormal [facility] Parathyrin.intact [Mass/Vol] 79.7 pg/mL High 14.0 - 72.0 pg/mL [facility] URINALYSIS REFLEX TO CULTURE PERFORMABLEon 06-12-2022 Appearance (U) Clear Clear [facility] Bacteria LM Ql (Urine sed) ABSENT ABSENT [facility] Color (U) Yellow Yellow [facility] Epithelial cells.squamous LM Ql (Urine sed) 1/hpf = 1+ 1/hpf = 1+, 2-5/hpf = 2+, 0/hpf = 0+, ABSENT [facility] Glucose Test strip (U) [Mass/Vol] Negative Negative [facility] Interpretation and review of laboratory results Abnormal [facility] Ketones (U) [Mass/Vol] Trace Abnormal Negative [facility] Leukocyte esterase Test strip Ql (U) Small Abnormal Negative [facility] Nitrite Ql (U) Negative Negative [facility] pH (U) 5.5 [pH] 5.0 - 7.0 [facility] Protein (U) [Mass/Vol] 30 mg/dL Abnormal Negative [facility] RBC (U) [#/Vol] Trace Abnormal Negative [facility] RBC LM.HPF (Urine sed) [#/Area] 0-2 0 - 2 /HPF [facility] Specific gravity (U) [Rel density] 1.026 [facility] Urobilinogen (U) [Mass/Vol] 0.2 E.U./dL 0.2 E.U/dL, 1.0 E.U/dL [facility] WBC LM.HPF (Urine sed) [#/Area] 10-20 Abnormal 0 - 5 /HPF [facility] URINE PROTEIN/CREA RATIO, RA Baljit 06-12-2022 Creatinine (24H U) [Mass/Vol] 231.68 mg/dL [facility] Protein Unsp time (U) [Mass/Vol] 49 mg/dL [facility] Protein/Creatinine (U) [Mass ratio] 0.211 mg[facility] ([facility] WHOLE BLO ODon 06-09-2022 Tacrolimus (FK506), Blood 9.8 ng/mL Normal 2.0-20.0 [facility] Comment on above: Result Comment: Trou gh (immediately following transplant) 15.0 . Trough (steady state, 2 weeks or more after transplant): 3.0 - 8.0 . Performed by LC-MS/MS technology. Performed By: #### U RTPCR #### [facility] [address] [place] [address] Dr. Dwight Waters ALBUMINon 06-06-2022 Albumin [Mass/Vol] 3.8 g/dL Normal 3.4-5.0 [facility] Comment on above: Performed By: #### C MP #### [facility] [address] [place] [address] Dr. Dwight Waters ALKALINE PHOSPHAon ALP [Catalytic activity/Vol] 82 U/L Normal 46-116 [facility] Comment on above: Performed By: #### C MP #### [facility] [address] [place] [address] Dr. Dwight Waters BILIRUBIN CONJUGATED (DIRECT )on 06-06-2022 BILI, CONJUGATED 0.2 mg/dL Normal 0.0-0.2 [facility] Comment on above: Performed By: #### C BC #### [facility] [address] [place] [address] Dr. Dwight Waters BILIRUBIN TOTALon 06-06-2022 Bilirubin [Mass/Vol] 1.0 mg/dL Normal 0.2-1.0 [facility] Comment on above: Performed By: #### C BC #### [facility] [address] [place] [address] Dr. Dwight Waters BUNon 06-06-2022 Urea nitrogen [Mass/Vol] 18.0 mg/dL Normal 7.0-18.0 [facility] Comment on above: Performed By: #### C BC #### [facility] [address] [place] [address] Dr. Dwight Waters CALCIUMon 06-06-2022 Calcium [Mass/Vol] 9.4 mg/dL Normal 8.5-10.1 [facility] Comment on above: Performed By: #### C MP #### [facility] [address] [place] [address] Dr. Dwight Waters CBC AUTO DIFFon 06-06-2022 BASO # 0.1 103/ul Normal 0.0-0.1 [facility] Comment on above: Performed By: #### U RTPCR #### [facility] [address] [place] [address] Dr. Dwight Waters Basophils/100 WBC (Bld) 0.8 % Normal 0.2-2.0 [facility] Comment on above: Performed By: #### U RTPCR #### [facility] [address] [place] [address] Dr. Dwight Waters EO # 0.3 103/ul Normal 0.0-0.7 [facility] Comment on above: Performed By: #### U RTPCR #### [facility] [address] [place] [address] Dr. Dwight Waters Eosinophils/100 WBC (Bld) 3.3 % Normal 0.9-7.0 [facility] Comment on above: Performed By: #### U RTPCR #### [facility] [address] [place] [address] Dr. Dwight Waters Erythrocyte distribution width (RBC) [Ratio] 12.4 % Normal 11.0-15.0 [facility] Comment on above: Performed By: #### U RTPCR #### [facility] [address] [place] [address] Dr. Dwight Waters Hematocrit (Bld) [Volume fraction] 45.1 % Normal 42.0-54.0 [facility] Comment on above: Performed By: #### U RTPCR #### [facility] [address] [address] [address] Dwight Waters Hemoglobin (Bld) [Mass/Vol] 14.4 g/dL Normal 14.0-18.0 [facility] Comment on above: Performed By: #### U RTPCR #### [facility] [address] [address] [address] Dwight Waters IG # 0.01 10e3/ul Normal 0.00-0.03 [facility] Comment on above: Performed By: #### U RTPCR #### [facility] [address] [address] [address] Dwight Waters IG % 0.1 % Normal 0.0-0.5 [facility] Comment on above: Performed By: #### U RTPCR #### [facility] [address] [address] [address] Dwight Waters LYMPH # 2.2 103/ul Normal 1.2-3.8 [facility] Comment on above: Performed By: #### U RTPCR #### [facility] [address] [address] [address] Dwight Waters Lymphocytes/100 WBC (Bld) 30.0 % Normal 20.5-60.0 [facility] Comment on above: Performed By: #### U RTPCR #### [facility] [address] [address] [address] Dwight Waters MANUAL DIFF REQ NO Normal [facility] Comment on above: Performed By: #### U RTPCR #### [facility] [address] [address] [address] Dwight Waters MCH (RBC) [Entitic mass] 28.2 pg Normal 25.9-34.0 [facility] Comment on above: Performed By: #### U RTPCR #### [facility] [address] [address] [address] Dwight Waters MCHC (RBC) [Mass/Vol] 31.9 g/dL Normal 29.9-35.2 [facility] Comment on above: Performed By: #### U RTPCR #### [facility] [address] [address] [address] Dwight Waters MCV (RBC) [Entitic vol] 88.3 fL Normal 80.0-94.0 [facility] Comment on above: Performed By: #### U RTPCR #### [facility] [address] [address] [address] Dwight Waters MONO # 0.6 103/ul Normal 0.3-0.8 [facility] Comment on above: Performed By: #### U RTPCR #### [facility] [address] [place] [address] Dr. Dwight Waters Monocytes/100 WBC (Bld) 8.2 % Normal 1.7-12.0 [facility] Comment on above: Performed By: #### U RTPCR #### [facility] [address] [place] [address] Dr. Dwight Waters NEUT # 4.3 103/ul Normal 1.4-6.5 [facility] Comment on above: Performed By: #### U RTPCR #### [facility] [address] [place] [address] Dr. Dwihgt Waters Neutrophils/100 WBC (Bld) 57.6 % Normal 43.0-75.0 [facility] Comment on above: Performed By: #### U RTPCR #### [facility] [address] [place] [address] Dr. Dwight Waters Platelet mean volume (Bld) [Entitic vol] 9.7 fL Normal 9.5-13.5 [facility] Comment on above: Performed By: #### U RTPCR #### [facility] [address] [place] [address] Dr. Dwight Waters PLT 297 103/ul Normal 150-450 [facility] Comment on above: Performed By: #### U RTPCR #### [facility] [address] [place] [address] Dr. Dwight Waters RBC 5.11 106/ul Normal 4.70-6.10 [facility] Comment on above: Performed By: #### U RTPCR #### [facility] [address] [address] [address] Dwight Waters WBC 7.5 103/ul Normal 4.0-11.0 [facility] Comment on above: Performed By: #### U RTPCR #### [facility] [address] [address] [address] Dwight Waters CHLORIDEon 06-06-2022 Chloride [Moles/Vol] 107 mmol/L Normal 98-107 [facility] Comment on above: Performed By: #### C BC #### [facility] [address] [address] [address] Dwight Waters CO2on 06-06-2022 CO2 [Moles/Vol] 27.4 mmol/L Normal 21.0-32.0 [facility] Comment on above: Performed By: #### C BC #### [facility] [address] [place] [address] Dr. Dwight Waters CREATININEon 06-06-2022 Creatinine [Mass/Vol] 1.20 mg/dL Normal 0.70-1.30 [facility] Comment on above: Performed By: #### C BC #### [facility] [address] [place] [address] Dr. Dwight Waters EGFR-AF SWISS >60 Normal >=60 [facility] Comment on above: Performed By: #### C BC #### [facility] [address] [place] [address] Dr. Dwight Waters EGFR-NON AF SWISS >60 Normal >=60 [facility] Comment on above: Performed By: #### C BC #### [facility] [address] [place] [address] Dr. Dwight Waters GGTon 06-06-2022 Gamma glutamyl transferase [Catalytic activity/Vol] 29 U/L Normal 15-85 [facility] Comment on above: Performed By: #### C BC #### [facility] [address] [place] [address] Dr. Dwight Waters GLUCOSE BLOODon 06-06-2022 Glucose [Mass/Vol] 112 mg/dL Critically high 74-106 T [facility] Comment on above: Performed By: #### C BC #### [facility] [address] [place] [address] Dr. Dwight Waters MAGNESIUMon 06-06-2022 Magnesium [Mass/Vol] 1.3 mg/dL Critically low 1.8-2.4 [facility] Comment on above: Performed By: #### C MP #### [facility] [address] [place] [address] Dr. Dwight Waters NAon 06-06-2022 Sodium [Moles/Vol] 141 mmol/L Normal 136-145 [facility] Comment on above: Performed By: #### C MP #### [facility] [address] [place] [address] Dr. Dwight Waters PHOSPHORUSon 06-06-2022 Phosphate [Mass/Vol] 3.1 mg/dL Normal 2.6-4.7 [facility] Comment on above: Performed By: #### C MP #### [facility] [address] [place] [address] Dr. Dwight Waters POTASSIUMon 06-06-2022 Potassium [Moles/Vol] 4.3 mmol/L Normal 3.5-5.1 [facility] Comment on above: Performed By: #### C BC #### [facility] [address] [place] [address] Dr. Dwight Waters SGOTon 06-06-2022 AST [Catalytic activity/Vol] 16 U/L Normal 15-37 [facility] Comment on above: Performed By: #### C BC #### [facility] [address] [place] [address] Dr. Dwight Waters SGPTon 06-06-2022 ALT [Catalytic activity/Vol] 50 U/L Normal 16-63 [facility] Comment on above: Performed By: #### C BC #### [facility] [address] [place] [address] Dr. Dwight Waters Bacteria identified Cx Nom ( Bld)on 05-21-2022 Bacteria identified Cx Nom (Unsp spec) NO GROWTH DAY 5 OF 5 [facility] Results may be compromised due to volume of BACT\ALERT bottle exceeding 10mLs . The optimal blood volume is 8-10 mls per aerobic/anaerobic blood culture bottle. [facility] CALCIUMon 05-20-2022 Calcium [Mass/Vol] 9.1 mg/dL 8.6 - 10. 5 mg/dL [facility] CBC,PLATELETSon 05-20-2022 Erythrocyte distribution width (RBC) [Ratio] 12.5 % 10.9 - 14.3 % [facility] Hematocrit (Bld) [Volume fraction] 37.1 % Low 39.6 - 48.8 % [facility] Hemoglobin (Bld) [Mass/Vol] 12.3 g/dL Low 13.4 - 16.8 g/dL [facility] Interpretation and review of laboratory results Abnormal [facility] MCH (RBC) [Entitic mass] 28.9 pg 26.1 - 33.3 pg [facility] MCHC (RBC) [Mass/Vol] 33.2 g/dL 31.9 - 36.5 g/dL [facility] MCV (RBC) [Entitic vol] 87.3 fL 79.0 - 94.5 fL [facility] Platelet mean volume (Bld) [Entitic vol] 9.9 fL 8.7 - 12.3 fL [facility] Platelets (Bld) [#/Vol] 234 10*3/uL 146 - 337 K/uL [facility] RBC (Bld) [#/Vol] 4.25 10*6/uL Low [facility] WBC (Bld) [#/Vol] 6.31 10*3/uL 3.73 - 10. 10 K/uL [facility] CHEM 7 (LYTES,BUN,CREA,GLUC) on 05-20-2022 Anion gap [Moles/Vol] 15 mmol/L 7 - 17 mmol/L [facility] Chloride [Moles/Vol] 111 mmol/L High 98 - 10 8 mmol/L [facility] CO2 [Moles/Vol] 22 mmol/L 21 - 31 mmol/L [facility] Creatinine [Mass/Vol] 1.10 mg/dL 0.70 - 1.30 mg/dL [facility] GFR/1.73 sq M.predicted CKD-EPI (S/P/Bld) [Vol rate/Area] 81 >=60 mL/min/1.73m2 [facility] Comment on above: Reported eGFR is bas ed on the CKD-EPI 2020 equation using creatinine, age, and sex. Glucose [Mass/Vol] 92 mg/dL 70 - 99 mg/dL [facility] Interpretation and review of laboratory results Abnormal [facility] Osmolality Calc [Osmolality] 302 [facility] Potassium [Moles/Vol] 4.4 mmol/L 3.5 - 5.0 mmol/L [facility] Sodium [Moles/Vol] 144 mmol/L 135 - 145 mmol/L [facility] Urea nitrogen [Mass/Vol] 18 mg/dL 7 - 25 mg/dL [facility] Urea nitrogen/Creatinine [Mass ratio] 16 mg/mg [facility] MAGNESIUMon 05-20-2022 Interpretation and review of laboratory results Abnormal [facility] Magnesium [Mass/Vol] 1.5 mg/dL Low 1.6 - 2 .6 mg/dL [facility] No Panel Informationon 05-20 Interpretation and review of laboratory results Normal [facility] PHOSPHATE, INORGANICon 05-20 Phosphate [Mass/Vol] 3.3 mg/dL 2.2 - 4 .6 mg/dL [facility] RF Unspecified body region V iews [...] projections of kidneys, ureters, and bladder. FINDINGS: Vessel Slag Worker images: Vessel Slag Worker radiographs of the abdomen reveal a nonobstructive [...] Contrast refluxes up the ureter to the [place] right kidney that is grossly normal appearing. [...] projections of kidneys, ureters, and bladder. FINDINGS: Vessel Slag Worker images: Vessel Slag Worker radiographs of the abdomen reveal a nonobstructive [...] Contrast refluxes up the ureter to the [place] right kidney that is grossly normal appearing. [...] I have reviewed and approved this report. [facility] Radiology Study observation (narrative) [facility] RF Unspecified body region V iews during surgeryOrdered By: Lizz Campos on 05-20-2022 [facility] Work Phone: CALCIUMon 05-19-2022 Calcium [Mass/Vol] 9.2 mg/dL 8.6 - 10. 5 mg/dL [facility] Calcium [Mass/Vol] 8.6 mg/dL 8.6 - 10. 5 mg/dL [facility] CBC,PLATELETSon 05-19-2022 Erythrocyte distribution width (RBC) [Ratio] 12.4 % 10.9 - 14.3 % [facility] Hematocrit (Bld) [Volume fraction] 38.0 % Low 39.6 - 48.8 % [facility] Hemoglobin (Bld) [Mass/Vol] 12.0 g/dL Low 13.4 - 16.8 g/dL [facility] Interpretation and review of laboratory results Abnormal [facility] MCH (RBC) [Entitic mass] 28.6 pg 26.1 - 33.3 pg [facility] MCHC (RBC) [Mass/Vol] 31.6 g/dL Low 31.9 - 36.5 g/dL [facility] MCV (RBC) [Entitic vol] 90.5 fL 79.0 - 94.5 fL [facility] Platelet mean volume (Bld) [Entitic vol] 9.7 fL 8.7 - 12.3 fL [facility] Platelets (Bld) [#/Vol] 199 10*3/uL 146 - 337 K/uL [facility] RBC (Bld) [#/Vol] 4.20 10*6/uL Low [facility] WBC (Bld) [#/Vol] 6.81 10*3/uL 3.73 - 10. 10 K/uL [facility] CHEM 7 (LYTES,BUN,CREA,GLUC) on 05-19-2022 Anion gap [Moles/Vol] 13 mmol/L 7 - 17 mmol/L [facility] Chloride [Moles/Vol] 105 mmol/L 98 - 10 8 mmol/L [facility] CO2 [Moles/Vol] 30 mmol/L 21 - 31 mmol/L [facility] Creatinine [Mass/Vol] 1.39 mg/dL High 0.70 - 1.30 mg/dL [facility] GFR/1.73 sq M.predicted CKD-EPI (S/P/Bld) [Vol rate/Area] 61 >=60 mL/min/1.73m2 [facility] Comment on above: Reported eGFR is bas ed on the CKD-EPI 2020 equation using creatinine, age, and sex. Glucose [Mass/Vol] 121 mg/dL High 70 - 99 mg/dL [facility] Interpretation and review of laboratory results Abnormal [facility] Osmolality Calc [Osmolality] 303 [facility] Potassium [Moles/Vol] 3.8 mmol/L 3.5 - 5.0 mmol/L [facility] Sodium [Moles/Vol] 144 mmol/L 135 - 145 mmol/L [facility] Urea nitrogen [Mass/Vol] 18 mg/dL 7 - 25 mg/dL [facility] Urea nitrogen/Creatinine [Mass ratio] 13 mg/mg [facility] Anion gap [Moles/Vol] 15 mmol/L 7 - 17 mmol/L [facility] Chloride [Moles/Vol] 106 mmol/L 98 - 10 8 mmol/L [facility] CO2 [Moles/Vol] 24 mmol/L 21 - 31 mmol/L [facility] Creatinine [Mass/Vol] 1.46 mg/dL High 0.70 - 1.30 mg/dL [facility] GFR/1.73 sq M.predicted CKD-EPI (S/P/Bld) [Vol rate/Area] 58 Low >=60 mL/min/1.73m2 [facility] Comment on above: Reported eGFR is bas ed on the CKD-EPI 2020 equation using creatinine, age, and sex. Glucose [Mass/Vol] 103 mg/dL High 70 - 99 mg/dL [facility] Interpretation and review of laboratory results Abnormal [facility] Osmolality Calc [Osmolality] 298 [facility] Potassium [Moles/Vol] 3.9 mmol/L 3.5 - 5.0 mmol/L [facility] Sodium [Moles/Vol] 141 mmol/L 135 - 145 mmol/L [facility] Urea nitrogen [Mass/Vol] 21 mg/dL 7 - 25 mg/dL [facility] Urea nitrogen/Creatinine [Mass ratio] 14 mg/mg [facility] MAGNESIUMon 05-19-2022 Magnesium [Mass/Vol] 2.0 mg/dL 1.6 - 2 .6 mg/dL [facility] Magnesium [Mass/Vol] 1.7 mg/dL 1.6 - 2 .6 mg/dL [facility] No Panel Informationon 05-19 Interpretation and review of laboratory results Normal [facility] Interpretation and review of laboratory results Normal [facility] PHOSPHATE, INORGANICon 05-19 Phosphate [Mass/Vol] 3.0 mg/dL 2.2 - 4 .6 mg/dL [facility] Phosphate [Mass/Vol] 2.7 mg/dL 2.2 - 4 .6 mg/dL [facility] CALCIUMon 05-18-2022 Calcium [Mass/Vol] 9.1 mg/dL 8.6 - 10. 5 mg/dL [facility] CBC,PLATELETSon 05-18-2022 Erythrocyte distribution width (RBC) [Ratio] 12.5 % 10.9 - 14.3 % [facility] Hematocrit (Bld) [Volume fraction] 37.3 % Low 39.6 - 48.8 % [facility] Hemoglobin (Bld) [Mass/Vol] 11.9 g/dL Low 13.4 - 16.8 g/dL [facility] Interpretation and review of laboratory results Abnormal [facility] MCH (RBC) [Entitic mass] 28.9 pg 26.1 - 33.3 pg [facility] [facility] MCHC (RBC) [Mass/Vol] 31.9 g/dL 31.9 - 36.5 g/dL [facility] MCV (RBC) [Entitic vol] 90.5 fL 79.0 - 94.5 fL [facility] Platelet mean volume (Bld) [Entitic vol] 10.1 fL 8.7 - 12.3 fL [facility] Platelets (Bld) [#/Vol] 189 10*3/uL 146 - 337 K/uL [facility] RBC (Bld) [#/Vol] 4.12 10*6/uL Low [facility] WBC (Bld) [#/Vol] 10.19 10*3/uL High 3.73 - 10 .10 K/uL [facility] CHEM 7 (LYTES,BUN,CREA,GLUC) on 05-18-2022 Anion gap [Moles/Vol] 13 mmol/L 7 - 17 mmol/L [facility] Chloride [Moles/Vol] 102 mmol/L 98 - 10 8 mmol/L [facility] CO2 [Moles/Vol] 26 mmol/L 21 - 31 mmol/L [facility] Creatinine [Mass/Vol] 1.91 mg/dL High 0.70 - 1.30 mg/dL [facility] GFR/1.73 sq M.predicted CKD-EPI (S/P/Bld) [Vol rate/Area] 42 Low >=60 mL/min/1.73m2 [facility] Comment on above: Reported eGFR is bas ed on the CKD-EPI 2020 equation using creatinine, age, and sex. Glucose [Mass/Vol] 158 mg/dL High 70 - 99 mg/dL [facility] Osmolality Calc [Osmolality] 297 [facility] Potassium [Moles/Vol] 4.0 mmol/L 3.5 - 5.0 mmol/L [facility] Sodium [Moles/Vol] 137 mmol/L 135 - 145 mmol/L [facility] Urea nitrogen [Mass/Vol] 30 mg/dL High 7 - 25 mg/dL [facility] Urea nitrogen/Creatinine [Mass ratio] 16 mg/mg [facility] CHEM 7 (LYTES,BUN,CREA,GLUC) Ordered By: Tamiko Thapa on 05-18-2022 Anion gap [Moles/Vol] 13 mmol/L 7 - 17 mmol/L [facility] Chloride [Moles/Vol] 104 mmol/L 98 - 10 8 mmol/L [facility] CO2 [Moles/Vol] 26 mmol/L 21 - 31 mmol/L [facility] Creatinine [Mass/Vol] 2.96 mg/dL High 0.70 - 1.30 mg/dL [facility] GFR/1.73 sq M.predicted CKD-EPI (S/P/Bld) [Vol rate/Area] 25 Low >=60 mL/min/1.73m2 [facility] Comment on above: Reported eGFR is bas ed on the CKD-EPI 2020 equation using creatinine, age, and sex. Glucose [Mass/Vol] 136 mg/dL High 70 - 99 mg/dL [facility] Interpretation and review of laboratory results Abnormal [facility] Osmolality Calc [Osmolality] 304 [facility] Potassium [Moles/Vol] 4.2 mmol/L 3.5 - 5.0 mmol/L [facility] Sodium [Moles/Vol] 139 mmol/L 135 - 145 mmol/L [facility] Urea nitrogen [Mass/Vol] 41 mg/dL High 7 - 25 mg/dL [facility] Urea nitrogen/Creatinine [Mass ratio] 14 mg/mg [facility] MAGNESIUMon 05-18-2022 Magnesium [Mass/Vol] 2.2 mg/dL 1.6 - 2 .6 mg/dL [facility] Interpretation and review of laboratory results Normal [facility] Magnesium [Mass/Vol] 1.7 mg/dL 1.6 - 2 .6 mg/dL [facility] No Panel Informationon 05-18 Interpretation and review of laboratory results Abnormal [facility] Interpretation and review of laboratory results Normal [facility] PHOSPHATE, INORGANICon 05-18 Phosphate [Mass/Vol] 2.0 mg/dL Low 2.2 - 4 .6 mg/dL [facility] Interpretation and review of laboratory results Normal [facility] Phosphate [Mass/Vol] 2.8 mg/dL 2.2 - 4 .6 mg/dL [facility] PT,INR,PTTon 05-18-2022 aPTT Coag (PPP) [Time] 31.0 s [facility] INR Coag (Bld) [Relative time] 1.1 {INR} [facility] Interpretation and review of laboratory results Abnormal [facility] PT Coag (PPP) [Time] 14.4 s High [facility] URINE CULTUREOrdered By: Sylvia Campos on 05-18-2022 Bacteria identified Cx Nom (Unsp spec) No Growth [facility] CBC,PLATELETSon 05-17-2022 Erythrocyte distribution width (RBC) [Ratio] 12.8 % 10.9 - 14.3 % [facility] Hematocrit (Bld) [Volume fraction] 42.8 % 39.6 - 48.8 % [facility] Hemoglobin (Bld) [Mass/Vol] 13.3 g/dL Low 13.4 - 16.8 g/dL [facility] Interpretation and review of laboratory results Abnormal [facility] MCH (RBC) [Entitic mass] 28.9 pg 26.1 - 33.3 pg [facility] MCHC (RBC) [Mass/Vol] 31.1 g/dL Low 31.9 - 36.5 g/dL [facility] MCV (RBC) [Entitic vol] 92.8 fL 79.0 - 94.5 fL [facility] Platelet mean volume (Bld) [Entitic vol] 10.3 fL 8.7 - 12.3 fL [facility] Platelets (Bld) [#/Vol] 188 10*3/uL 146 - 337 K/uL [facility] RBC (Bld) [#/Vol] 4.61 10*6/uL [facility] WBC (Bld) [#/Vol] 16.61 10*3/uL High 3.73 - 10 .10 K/uL [facility] CHEM 7 (LYTES,BUN,CREA,GLUC) Ordered By: Kaylah Mc on 05-17-2022 Anion gap [Moles/Vol] 15 mmol/L 7 - 17 mmol/L [facility] Chloride [Moles/Vol] 103 mmol/L 98 - 10 8 mmol/L [facility] CO2 [Moles/Vol] 23 mmol/L 21 - 31 mmol/L [facility] Creatinine [Mass/Vol] 5.95 mg/dL High 0.70 - 1.30 mg/dL [facility] GFR/1.73 sq M.predicted CKD-EPI (S/P/Bld) [Vol rate/Area] 11 Low >=60 mL/min/1.73m2 [facility] Comment on above: Reported eGFR is bas ed on the CKD-EPI 2020 equation using creatinine, age, and sex. Glucose [Mass/Vol] 165 mg/dL High 70 - 99 mg/dL [facility] Interpretation and review of laboratory results Abnormal [facility] Osmolality Calc [Osmolality] 305 [facility] Potassium [Moles/Vol] 4.6 mmol/L 3.5 - 5.0 mmol/L [facility] Sodium [Moles/Vol] 136 mmol/L 135 - 145 mmol/L [facility] Urea nitrogen [Mass/Vol] 52 mg/dL High 7 - 25 mg/dL [facility] Urea nitrogen/Creatinine [Mass ratio] 9 mg/mg [facility] CHEM 7 (LYTES,BUN,CREA,GLUC) Ordered By: Kehinde Gutierrez on 05-17-2022 Anion gap [Moles/Vol] 24 mmol/L High 7 - 17 mmol/L [facility] Chloride [Moles/Vol] 100 mmol/L 98 - 10 8 mmol/L [facility] CO2 [Moles/Vol] 16 mmol/L Low 21 - 31 mmol/L [facility] Creatinine [Mass/Vol] 8.08 mg/dL High 0.70 - 1.30 mg/dL [facility] GFR/1.73 sq M.predicted CKD-EPI (S/P/Bld) [Vol rate/Area] 7 Low >=60 mL/min/1.73m2 [facility] Comment on above: Reported eGFR is bas ed on the CKD-EPI 2020 equation using creatinine, age, and sex. Glucose [Mass/Vol] 164 mg/dL High 70 - 99 mg/dL [facility] Interpretation and review of laboratory results Abnormal [facility] Osmolality Calc [Osmolality] 305 [facility] Potassium [Moles/Vol] 5.0 mmol/L 3.5 - 5.0 mmol/L [facility] Sodium [Moles/Vol] 135 mmol/L 135 - 145 mmol/L [facility] Urea nitrogen [Mass/Vol] 56 mg/dL High 7 - 25 mg/dL [facility] Urea nitrogen/Creatinine [Mass ratio] 7 mg/mg [facility] LAVENDER TOP TUBEon 05-17-20 [facility] MAGNESIUMon 05-17-2022 Interpretation and review of laboratory results Normal [facility] Magnesium [Mass/Vol] 1.8 mg/dL 1.6 - 2 .6 mg/dL [facility] Interpretation and review of laboratory results Normal [facility] Magnesium [Mass/Vol] 1.6 mg/dL 1.6 - 2 .6 mg/dL [facility] No Panel Informationon 05-17 [facility] PHOSPHATE, INORGANICon 05-17 Interpretation and review of laboratory results Abnormal [facility] Phosphate [Mass/Vol] 4.9 mg/dL High 2.2 - 4 .6 mg/dL [facility] PT,INR,PTTon 05-17-2022 aPTT Coag (PPP) [Time] 33.0 s [facility] INR Coag (Bld) [Relative time] 1.3 {INR} High [facility] Interpretation and review of laboratory results Abnormal [facility] PT Coag (PPP) [Time] 15.7 s High [facility] Portable XR Chest Viewson IMPRESSION: No [...] Stable cardiomegaly. IMPRESSION IMPRESSION: No acute findings. [facility] Radiology Study observation (narrative) [facility] Portable XR Chest ViewsOrder ed By: Raheem Sanz on 05-17-2022 [facility] Work Phone: URINALYSISOrdered By: Michael patel Ma on 05-17-2022 Appearance (U) Cloudy Abnormal Clear [facility] Comment on above: Results may be inacc urate due to color interference. Clinical correlation recommended. Bacteria LM Ql (Urine sed) ABSENT ABSENT [facility] Color (U) Red Abnormal Yellow [facility] Comment on above: Results may be inacc urate due to color interference. Clinical correlation recommended. Epithelial cells.squamous LM Ql (Urine sed) ABSENT 1/hpf = 1+, 2-5/hpf = 2+, 0/hpf = 0+, ABSENT [facility] Glucose Test strip (U) [Mass/Vol] Negative Negative [facility] Comment on above: Results may be inacc urate due to color interference. Clinical correlation recommended. Interpretation and review of laboratory results Abnormal [facility] Ketones (U) [Mass/Vol] Trace Abnormal Negative [facility] Comment on above: Results may be inacc urate due to color interference. Clinical correlation recommended. Leukocyte esterase Test strip Ql (U) Large Abnormal Negative [facility] Comment on above: Results may be inacc urate due to color interference. Clinical correlation recommended. Nitrite Ql (U) Negative Negative [facility] Comment on above: Results may be inacc urate due to color interference. Clinical correlation recommended. pH (U) 5.0 [pH] 5.0 - 7.0 [facility] Comment on above: Results may be inacc urate due to color interference. Clinical correlation recommended. Protein (U) [Mass/Vol] mg/dL Abnormal Negative [facility] Comment on above: Results may be inacc urate due to color interference. Clinical correlation recommended. RBC (U) [#/Vol] Large Abnormal Negative [facility] Comment on above: Results may be inacc urate due to color interference. Clinical correlation recommended. RBC LM.HPF (Urine sed) [#/Area] /[HPF] Abnormal 0 - 2 /HPF [facility] Specific gravity (U) [Rel density] 1.016 [facility] Comment on above: Results may be inacc urate due to color interference. Clinical correlation recommended. Urobilinogen (U) [Mass/Vol] 0.2 E.U./dL 0.2 E.U/dL, 1.0 E.U/dL [facility] Comment on above: Results may be inacc urate due to color interference. Clinical correlation recommended. WBC LM.HPF (Urine sed) [#/Area] /[HPF] Abnormal 0 - 5 /HPF [facility] URINE CULTUREOrdered By: Tyler Tiwari on 05-17-2022 Bacteria identified Cx Nom (Unsp spec) No Growth [facility] CBC,PLATELETSon 05-16-2022 Erythrocyte distribution width (RBC) [Ratio] 12.9 % 10.9 - 14.3 % [facility] Hematocrit (Bld) [Volume fraction] 46.5 % 39.6 - 48.8 % [facility] Hemoglobin (Bld) [Mass/Vol] 14.7 g/dL 13.4 - 16.8 g/dL [facility] Interpretation and review of laboratory results Abnormal [facility] MCH (RBC) [Entitic mass] 28.3 pg 26.1 - 33.3 pg [facility] MCHC (RBC) [Mass/Vol] 31.6 g/dL Low 31.9 - 36.5 g/dL [facility] MCV (RBC) [Entitic vol] 89.6 fL 79.0 - 94.5 fL [facility] Platelet mean volume (Bld) [Entitic vol] 10.3 fL 8.7 - 12.3 fL [facility] Platelets (Bld) [#/Vol] 188 10*3/uL 146 - 337 K/uL [facility] RBC (Bld) [#/Vol] 5.19 10*6/uL [facility] WBC (Bld) [#/Vol] 12.55 10*3/uL High 3.73 - 10 .10 K/uL [facility] CHEM 7 (LYTES,BUN,CREA,GLUC) Ordered By: Alma Pena on 05-16-2022 Anion gap [Moles/Vol] 14 mmol/L 7 - 17 mmol/L [facility] Chloride [Moles/Vol] 103 mmol/L 98 - 10 8 mmol/L [facility] CO2 [Moles/Vol] 22 mmol/L 21 - 31 mmol/L [facility] Creatinine [Mass/Vol] 6.09 mg/dL High 0.70 - 1.30 mg/dL [facility] GFR/1.73 sq M.predicted CKD-EPI (S/P/Bld) [Vol rate/Area] 10 Low >=60 mL/min/1.73m2 [facility] Comment on above: Reported eGFR is bas ed on the CKD-EPI 2020 equation using creatinine, age, and sex. Glucose [Mass/Vol] 134 mg/dL High 70 - 99 mg/dL [facility] Interpretation and review of laboratory results Abnormal [facility] Osmolality Calc [Osmolality] 298 [facility] Potassium [Moles/Vol] 4.9 mmol/L 3.5 - 5.0 mmol/L [facility] Sodium [Moles/Vol] 134 mmol/L Low 135 - 145 mmol/L [facility] Comment on above: Results inconsistent with previous results Urea nitrogen [Mass/Vol] 49 mg/dL High 7 - 25 mg/dL [facility] Urea nitrogen/Creatinine [Mass ratio] 8 mg/mg [facility] CHEM 7 (LYTES,BUN,CREA,GLUC) on 05-16-2022 Anion gap [Moles/Vol] 17 mmol/L 7 - 17 mmol/L [facility] Chloride [Moles/Vol] 106 mmol/L 98 - 10 8 mmol/L [facility] CO2 [Moles/Vol] 22 mmol/L 21 - 31 mmol/L [facility] Creatinine [Mass/Vol] 5.23 mg/dL High 0.70 - 1.30 mg/dL [facility] GFR/1.73 sq M.predicted CKD-EPI (S/P/Bld) [Vol rate/Area] 13 Low >=60 mL/min/1.73m2 [facility] Comment on above: Reported eGFR is bas ed on the CKD-EPI 2020 equation using creatinine, age, and sex. Glucose [Mass/Vol] 116 mg/dL High 70 - 99 mg/dL [facility] Interpretation and review of laboratory results Abnormal [facility] Osmolality Calc [Osmolality] 305 [facility] Potassium [Moles/Vol] 4.6 mmol/L 3.5 - 5.0 mmol/L [facility] Sodium [Moles/Vol] 140 mmol/L 135 - 145 mmol/L [facility] Urea nitrogen [Mass/Vol] 42 mg/dL High 7 - 25 mg/dL [facility] Urea nitrogen/Creatinine [Mass ratio] 8 mg/mg [facility] EXTRA MICROon 05-16-2022 [facility] LT BLUE TOP TUBEon 2 [facility] LYTES (NA, K, CL) - URINE - RANDOMon 05-16-2022 Chloride (24H U) [Moles/Vol] 68 mmol/L [facility] Potassium (24H U) [Moles/Vol] 36.7 mmol/L [facility] Sodium (24H U) [Moles/Vol] 55 mmol/L [facility] The reference range has not been established for random urine specimens. The test result should be integrated into the clinical context for interpretation. [facility] MAGNESIUMon 05-16-2022 Interpretation and review of laboratory results Normal [facility] Magnesium [Mass/Vol] 1.7 mg/dL 1.6 - 2 .6 mg/dL [facility] NOVEL CORONAVIRUS PCROrdered By: Edson Candelario on 05-16-2022 SARS-CoV-2 (COVID-19) RNA ESTELITA+probe Ql (Unsp spec) Not detected NOT DETECTED [facility] Comment on above: [facility] Negative [...] use authorization for use by authorized laboratories. [facility] No Panel Informationon 05-16 [facility] OSMOLALITY, URINEon 05-16-20 Interpretation and review of laboratory results Normal [facility] Osmolality (U) [Osmolality] 320 mosm/kg [facility] The reference range has not been established for random urine specimens. The test result should be integrated into the clinical context for interpretation. [facility] PROCALCITONINon 05-16-2022 Interpretation and review of laboratory results Normal [facility] Procalcitonin [Mass/Vol] 0.18 ng/mL <0.50 [facility] Comment on above: Procalcitonin [...] and trend procalcitonin in various clinical settings. [email or web address] Two common cutoffs associated with bacterial infections are as follows. Respiratory tract infections: >0.25 ng/mL Sepsis/septic shock: >0.5 ng/mL Procalcitonin should not be used alone as a diagnostic tool, however. All procalcitonin results should be interpreted in association with the patients clinical condition and all laboratory findings. [facility] PT,INR,PTTon 05-16-2022 aPTT Coag (PPP) [Time] 30.3 s [facility] INR Coag (Bld) [Relative time] 1.1 {INR} [facility] Interpretation and review of laboratory results Normal [facility] PT Coag (PPP) [Time] 14.1 s [facility] SARS-CoV-2 (COVID-19) RNA NA A+probe Ql (Unsp spec)Ordered By: Edson Candelario on 05-16-2022 Interpretation and review of laboratory results Normal [facility] TACROLIMUS LEVEL, TROUGH (DC E DRUG LEVEL)Ordered By: Mariama Nick on 05-16-2022 Interpretation and review of laboratory results Normal [facility] Tacrolimus (Bld) [Mass/Vol] 4.1 ng/mL Bone Marrow Transplant: 4.0-12.0, Therapeutic: 5.0-15.0 [facility] Method performed is a chemiluminescent microparticle immunoasssay on the [employer] i2000. The range is based on experience at [facility] and users should be aware that target concentrations vary widely depending on concomitant therapy, time post-transplant, and desired degree of immunosuppression. [facility] URINE PROTEIN/CREA RATIO, RA Smiley 05-16-2022 Creatinine (24H U) [Mass/Vol] 59.82 mg/dL [facility] Protein Unsp time (U) [Mass/Vol] 111 mg/dL [facility] Protein/Creatinine (U) [Mass ratio] 1.856 mg/g [facility] US for transplanted kidney l sanjivon [...] appearing vascular flow in the transplant kidney. [facility] Radiology Study observation (narrative) [facility] US for transplanted kidney l imitedOrdered By: Rosendo Matute on 05-16-2022 [facility] Work Phone: CBC AND ELECTRONIC DIFFon Basophils (Bld) [#/Vol] 10*3/uL 0.00 - 0.09 K/uL [facility] Basophils/100 WBC (Bld) 0.2 % [facility] Differential cell count method Nom (Bld) Electronic Differential [facility] Eosinophils (Bld) [#/Vol] 10*3/uL 0.00 - 0.48 K/uL [facility] Eosinophils/100 WBC (Bld) 0.0 % [facility] Erythrocyte distribution width (RBC) [Ratio] 12.8 % 10.9 - 14.3 % [facility] Hematocrit (Bld) [Volume fraction] 46.0 % 39.6 - 48.8 % [facility] Hemoglobin (Bld) [Mass/Vol] 14.6 g/dL 13.4 - 16.8 g/dL [facility] Immature granulocytes (Bld) [#/Vol] 0.07 10*3/uL <=0.08 [facility] Immature granulocytes/100 WBC (Bld) 0.4 % [facility] Interpretation and review of laboratory results Abnormal [facility] Lymphocytes (Bld) [#/Vol] 1.49 10*3/uL 0.83 - 3.57 K/uL [facility] Lymphocytes/100 WBC (Bld) 9.4 % [facility] MCH (RBC) [Entitic mass] 28.2 pg 26.1 - 33.3 pg [facility] MCHC (RBC) [Mass/Vol] 31.7 g/dL Low 31.9 - 36.5 g/dL [facility] MCV (RBC) [Entitic vol] 89.0 fL 79.0 - 94.5 fL [facility] Monocytes (Bld) [#/Vol] 1.45 10*3/uL High 0.24 - 0.93 K/uL [facility] Monocytes/100 WBC (Bld) 9.2 % [facility] Neutrophils (Bld) [#/Vol] 12.77 10*3/uL High 1.57 - 6.19 K/uL [facility] Nucleated RBC/100 WBC (Bld) [Ratio] 0.0 % <=0.2 /100 WBC [facility] Platelet mean volume (Bld) [Entitic vol] 9.9 fL 8.7 - 12.3 fL [facility] Platelets (Bld) [#/Vol] 250 10*3/uL 146 - 337 K/uL [facility] RBC (Bld) [#/Vol] 5.17 10*6/uL [facility] Segmented neutrophils/100 WBC (Bld) 80.8 % [facility] WBC (Bld) [#/Vol] 15.81 10*3/uL High 3.73 - 10 .10 K/uL [facility] CBC AUTO DIFFon 05-15-2022 BASO # 0.0 103/ul Normal 0.0-0.1 [facility] Comment on above: Performed By: #### C BC #### [facility] [address] [place] [address] Dr. Dwight Waters Basophils/100 WBC (Bld) 0.3 % Normal 0.2-2.0 [facility] Comment on above: Performed By: #### C BC #### [facility] [address] [address] [address] Dwight Waters EO # 0.1 103/ul Normal 0.0-0.7 [facility] Comment on above: Performed By: #### C BC #### [facility] [address] [address] [address] Dwight Waters Eosinophils/100 WBC (Bld) 0.8 % Critically low 0.9-7.0 [facility] Comment on above: Performed By: #### C BC #### [facility] [address] [address] [address] Dwight Waters Erythrocyte distribution width (RBC) [Ratio] 12.7 % Normal 11.0-15.0 [facility] Comment on above: Performed By: #### C BC #### [facility] [address] [place] [address] Dr. Dwight Waters Hematocrit (Bld) [Volume fraction] 43.5 % Normal 42.0-54.0 [facility] Comment on above: Performed By: #### C BC #### [facility] [address] [address] [address] Dwight Waters Hemoglobin (Bld) [Mass/Vol] 14.4 g/dL Normal 14.0-18.0 [facility] Comment on above: Performed By: #### C BC #### [facility] [address] [address] [address] Dwight Waters IG # 0.02 10e3/ul Normal 0.00-0.03 [facility] Comment on above: Performed By: #### C BC #### [facility] [address] [place] [address] Dr. Dwight Waters IG % 0.2 % Normal 0.0-0.5 [facility] Comment on above: Performed By: #### C BC #### [facility] [address] [place] [address] Dr. Dwight Waters LYMPH # 1.5 103/ul Normal 1.2-3.8 [facility] Comment on above: Performed By: #### C BC #### [facility] [address] [place] [address] Dr. Dwight Waters Lymphocytes/100 WBC (Bld) 12.5 % Critically low 20.5-60.0 [facility] Comment on above: Performed By: #### C BC #### [facility] [address] [place] [address] Dr. Dwight Waters MANUAL DIFF REQ NO Normal [facility] Comment on above: Performed By: #### C BC #### [facility] [address] [place] [address] Dr. Dwight Waters MCH (RBC) [Entitic mass] 28.6 pg Normal 25.9-34.0 [facility] Comment on above: Performed By: #### C BC #### [facility] [address] [place] [address] Dr. Dwight Waters MCHC (RBC) [Mass/Vol] 33.1 g/dL Normal 29.9-35.2 [facility] Comment on above: Performed By: #### C BC #### [facility] [address] [address] [address] Dwight Waters MCV (RBC) [Entitic vol] 86.3 fL Normal 80.0-94.0 [facility] Comment on above: Performed By: #### C BC #### [facility] [address] [address] [address] Dwight Waters MONO # 1.0 103/ul Critically high 0.3-0.8 [facility] Comment on above: Performed By: #### C BC #### [facility] [address] [address] [address] Dwight Waters Monocytes/100 WBC (Bld) 8.2 % Normal 1.7-12.0 [facility] Comment on above: Performed By: #### C BC #### [facility] [address] [place] [address] Dr. Dwight Waters NEUT # 9.1 103/ul Critically high 1.4-6.5 [facility] Comment on above: Performed By: #### C BC #### [facility] [address] [place] [address] Dr. Dwight Waters Neutrophils/100 WBC (Bld) 78.0 % Critically high 43.0-75.0 [facility] Comment on above: Performed By: #### C BC #### [facility] [address] [place] [address] Dr. Dwight Waters Platelet mean volume (Bld) [Entitic vol] 9.8 fL Normal 9.5-13.5 [facility] Comment on above: Performed By: #### C BC #### [facility] [address] [place] [address] Dr. Dwight Waters PLT 251 103/ul Normal 150-450 [facility] Comment on above: Performed By: #### C BC #### [facility] [address] [address] [address] Dwight Waters RBC 5.04 106/ul Normal 4.70-6.10 [facility] Comment on above: Performed By: #### C BC #### [facility] [address] [place], [place] [address] Dr. Dwight Waters WBC 11.6 103/ul Critically high 4.0-11.0 [facility] Comment on above: Performed By: #### C #### [facility] [address] [place], [place] [address] Dr. Dwight Waters CHEM 6 (LYTES, BUN CREA)on 0 05-15-2022 Anion gap [Moles/Vol] 12 mmol/L 7 - 17 mmol/L [facility] Chloride [Moles/Vol] 105 mmol/L 98 - 10 8 mmol/L [facility] CO2 [Moles/Vol] 26 mmol/L 21 - 31 mmol/L [facility] Creatinine [Mass/Vol] 2.85 mg/dL High 0.70 - 1.30 mg/dL [facility] GFR/1.73 sq M.predicted CKD-EPI (S/P/Bld) [Vol rate/Area] 26 Low >=60 mL/min/1.73m2 [facility] Comment on above: Reported eGFR is bas ed on the CKD-EPI 2020 equation using creatinine, age, and sex. Potassium [Moles/Vol] 4.6 mmol/L 3.5 - 5.0 mmol/L [facility] Sodium [Moles/Vol] 138 mmol/L 135 - 145 mmol/L [facility] Urea nitrogen [Mass/Vol] 32 mg/dL High 7 - 25 mg/dL [facility] Urea nitrogen/Creatinine [Mass ratio] 11 mg/mg [facility] CT ABD/PELVIS WO CONon 05-15 CT [...] transplanted kidney with moderate right-sided hydronephrosis. Atrophic [place] kidneys with moderate right-sided hydronephrosis. Multiple nonobstructive [...] transplanted kidney with moderate right-sided hydronephrosis. Atrophic [place] kidneys with moderate right-sided hydronephrosis. Multiple nonobstructive right renal calculi measuring up to 8 mm. FOLLOW-UP: Follow-up as clinically indicated. Electronically authenticated by: LYNDSAY JEAN Date: 2022-05-15 05:04 Normal [facility] Covid-19 PCR (CVDTB)on 04-30 SARS-CoV-2 (COVID-19) RNA ESTELITA+probe Ql (Unsp spec) Not detected Normal NOT DETECTED [facility] Comment on above: Result Comment: [...] for this test is supported by the [employer] of Health and Human Service's declaration [...] used). Performed By: #### U RTPCR #### [facility] [address] [address] [address] Dwight Waters GLUCOSEon 05-15-2022 Glucose [Mass/Vol] 141 mg/dL High 70 - 99 mg/dL [facility] GOLD TOP TUBEon 05-15-2022 [facility] HEPATIC FUNCTION PANELon Albumin [Mass/Vol] 4.3 g/dL 3.5 - 5.0 g/dL [facility] ALP [Catalytic activity/Vol] 85 U/L 32 - 126 U/L [facility] ALT [Catalytic activity/Vol] 13 U/L 10 - 52 U/L [facility] AST [Catalytic activity/Vol] 15 U/L 10 - 39 U/L [facility] Bilirubin [Mass/Vol] 0.8 mg/dL <1.5 [facility] Bilirubin.direct [Mass/Vol] 0.2 mg/dL <0.3 [facility] Interpretation and review of laboratory results Normal [facility] Protein [Mass/Vol] 7.3 g/dL 6.4 - 8.3 g/dL [facility] LIPASEon 05-15-2022 Lipase [Catalytic activity/Vol] 8 U/L Low 11 - 82 U/L [facility] No Panel Informationon 05-15 Interpretation and review of laboratory results Abnormal [facility] PROF 14(COMP METB)on 022 Albumin [Mass/Vol] 3.8 g/dL Normal 3.4-5.0 [facility] Comment on above: Performed By: #### U RTPCR #### [facility] [address] [address] [address] Dwight Waters Albumin/Globulin [Mass ratio] 1.1 {ratio} Normal [facility] Comment on above: Performed By: #### U RTPCR #### [facility] [address] [address] [address] Dwight Waters ALP [Catalytic activity/Vol] 92 U/L Normal 46-116 [facility] Comment on above: Performed By: #### U RTPCR #### [facility] [address] [address] [address] Dwight Waters ALT [Catalytic activity/Vol] 25 U/L Normal 16-63 [facility] Comment on above: Performed By: #### U RTPCR #### [facility] [address] [address] [address] Dwight Waters Anion gap [Moles/Vol] 14.6 mmol/L Normal [facility] Comment on above: Performed By: #### U RTPCR #### [facility] [address] [address] [address] Dwight Waters AST [Catalytic activity/Vol] 17 U/L Normal 15-37 [facility] Comment on above: Performed By: #### U RTPCR #### [facility] [address] [address] [address] Dwight Waters Bilirubin [Mass/Vol] 0.6 mg/dL Normal 0.2-1.0 [facility] Comment on above: Performed By: #### U RTPCR #### [facility] [address] [address] [address] Dwight Waters Calcium [Mass/Vol] 9.9 mg/dL Normal 8.5-10.1 [facility] Comment on above: Performed By: #### U RTPCR #### [facility] [address] [address] [address] Dwight Waters Chloride [Moles/Vol] 106 mmol/L Normal 98-107 [facility] Comment on above: Performed By: #### U RTPCR #### [facility] [address] [address] [address] Dwight Waters CO2 [Moles/Vol] 24.2 mmol/L Normal 21.0-32.0 [facility] Comment on above: Performed By: #### U RTPCR #### [facility] [address] [address] [address] Dwight Waters Creatinine [Mass/Vol] 1.58 mg/dL Critically high 0.70-1.30 [facility] Comment on above: Performed By: #### U RTPCR #### [facility] [address] [address] [address] Dwight Waters EGFR-AF SWISS 56 mL/min/1.73m2 Critically low >=60 [facility] Comment on above: Performed By: #### U RTPCR #### [facility] [address] [address] [address] Dwight Waters EGFR-NON AF SWISS 46 mL/min/1.73m2 Critically low >=60 [facility] Comment on above: Performed By: #### U RTPCR #### [facility] [address] [address] [address] Dwihgt Waters Globulin (S) [Mass/Vol] 3.5 g/dL Normal [facility] Comment on above: Performed By: #### U RTPCR #### [facility] [address] [address] [address] Dwight Waters Glucose [Mass/Vol] 162 mg/dL Critically high 74-106 [facility] Comment on above: Performed By: #### U RTPCR #### [facility] [address] [address] [address] Dwight Waters Potassium [Moles/Vol] 3.8 mmol/L Normal 3.5-5.1 [facility] Comment on above: Performed By: #### U RTPCR #### [facility] [address] [address] [address] Dwight Waters Protein [Mass/Vol] 7.3 g/dL Normal 6.4-8.2 [facility] Comment on above: Performed By: #### U RTPCR #### [facility] [address] [address] [address] Dwight Waters Sodium [Moles/Vol] 141 mmol/L Normal 136-145 [facility] Comment on above: Performed By: #### U RTPCR #### [facility] [address] [address] [address] Dwight Waters Urea nitrogen [Mass/Vol] 22.0 mg/dL Critically high 7.0-18.0 [facility] Comment on above: Performed By: #### U RTPCR #### [facility] [address] [place], [place] [address] Dr. Dwight Waters Urea nitrogen/Creatinine [Mass ratio] 13.9 mg/mg Normal [facility] Comment on above: Performed By: #### U RTPCR #### [facility] [address] [place], [place] [address] Dr. Dwight Waters Portable XR Chest Viewson [...] chest. IMPRESSION IMPRESSION: No acute cardiopulmonary disease [facility] Radiology Study observation (narrative) [facility] Portable XR Chest ViewsOrder ed By: Vladislav Omer on 05-15-2022 [facility] URINE DIPSTICK; REFLEX MICRO SCOPY; REFLEX CULTURE PERFORMABLEon 05-15-2022 Appearance (U) Clear Clear [facility] Color (U) Yellow Yellow [facility] Glucose Test strip (U) [Mass/Vol] 100 mg/dL Abnormal Negative [facility] Interpretation and review of laboratory results Abnormal [facility] Ketones (U) [Mass/Vol] Negative Negative OS [facility] Leukocyte esterase Test strip Ql (U) Large Abnormal Negative [facility] Nitrite Ql (U) Negative Negative [facility] pH (U) 6.0 [pH] 5.0 - 7.0 [facility] Protein (U) [Mass/Vol] 100 mg/dL Abnormal Negative [facility] RBC (U) [#/Vol] Large Abnormal Negative [facility] Specific gravity (U) [Rel density] 1.010 [facility] Urobilinogen (U) [Mass/Vol] 0.2 E.U./dL 0.2 E.U/dL, 1.0 E.U/dL [facility] URINE MICROSCOPIC WITH REFLE X TO CULTUREOrdered By: Rey Bro on 05-15-2022 Bacteria LM Ql (Urine sed) ABSENT ABSENT [facility] Epithelial cells.squamous LM Ql (Urine sed) ABSENT 1/hpf = 1+, 2-5/hpf = 2+, 0/hpf = 0+, ABSENT [facility] Interpretation and review of laboratory results Abnormal [facility] RBC LM.HPF (Urine sed) [#/Area] /[HPF] Abnormal 0 - 2 /HPF [facility] WBC LM.HPF (Urine sed) [#/Area] 10-20 Abnormal 0 - 5 /HPF [facility] CT ABD/PELVIS WO CONon 05-12 CT ABD/PELVIS WO CON Begin Addendum #[address] Lund 3:25 PM EST 05/11/2022. Begin Addendum #2 IMPRESSION below should also contain the followin. 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 The [place] kidneys are progressively atrophic bilaterally compared to [...] of 06/14/2020 are no longer present. The [place] distal right ureter is decompressed beyond this [...] with surgical history for renal graft and [place] right urinary drainage, as a discrete ureteroneocystostomy is not identified, and the graft may be draining via a ureteroureterostomy. Urology consultation recommended. 3. The [place] kidneys are bilaterally atrophic, with right renal sinus calcifications consistent with nonobstructing right [place] renal calculi up to 6 mm. Normal [facility] CBC AUTO DIFFon 05-11-2022 BASO # 0.1 103/ul Normal 0.0-0.1 [facility] Comment on above: Performed By: #### U RTPCR #### [facility] [address] [address] [address] Dwight Waters Basophils/100 WBC (Bld) 0.8 % Normal 0.2-2.0 [facility] Comment on above: Performed By: #### U RTPCR #### [facility] [address] [address] [address] Dwight Waters EO # 0.2 103/ul Normal 0.0-0.7 [facility] Comment on above: Performed By: #### U RTPCR #### [facility] [address] [address] [address] Dwight Waters Eosinophils/100 WBC (Bld) 2.5 % Normal 0.9-7.0 [facility] Comment on above: Performed By: #### U RTPCR #### [facility] [address] [address] [address] Dwight Waters Erythrocyte distribution width (RBC) [Ratio] 12.5 % Normal 11.0-15.0 [facility] Comment on above: Performed By: #### U RTPCR #### [facility] [address] [address] [address] Dwight Waters Hematocrit (Bld) [Volume fraction] 48.3 % Normal 42.0-54.0 [facility] Comment on above: Performed By: #### U RTPCR #### [facility] [address] [address] [address] Dwight Waters Hemoglobin (Bld) [Mass/Vol] 15.3 g/dL Normal 14.0-18.0 [facility] Comment on above: Performed By: #### U RTPCR #### [facility] [address] [address] [address] Dwight Waters IG # 0.01 10e3/ul Normal 0.00-0.03 [facility] Comment on above: Performed By: #### U RTPCR #### [facility] [address] [place] [address] Dr. Dwight Waters IG % 0.2 % Normal 0.0-0.5 [facility] Comment on above: Performed By: #### U RTPCR #### [facility] [address] [place] [address] Dr. Dwight Waters LYMPH # 1.9 103/ul Normal 1.2-3.8 [facility] Comment on above: Performed By: #### U RTPCR #### [facility] [address] [place] [address] Dr. Dwight Waters Lymphocytes/100 WBC (Bld) 29.8 % Normal 20.5-60.0 [facility] Comment on above: Performed By: #### U RTPCR #### [facility] [address] [place] [address] Dr. Dwight Waters MANUAL DIFF REQ NO Normal [facility] Comment on above: Performed By: #### U RTPCR #### [facility] [address] [place] [address] Dr. Dwight Waters MCH (RBC) [Entitic mass] 28.2 pg Normal 25.9-34.0 [facility] Comment on above: Performed By: #### U RTPCR #### [facility] [address] [place] [address] Dr. Dwight Waters MCHC (RBC) [Mass/Vol] 31.7 g/dL Normal 29.9-35.2 [facility] Comment on above: Performed By: #### U RTPCR #### [facility] [address] [place] [address] Dr. Dwight Waters MCV (RBC) [Entitic vol] 89.1 fL Normal 80.0-94.0 [facility] Comment on above: Performed By: #### U RTPCR #### [facility] [address] [address] [address] Dwight Waters MONO # 0.6 103/ul Normal 0.3-0.8 [facility] Comment on above: Performed By: #### U RTPCR #### [facility] [address] [place] [address] Dr. Dwight Waters Monocytes/100 WBC (Bld) 9.0 % Normal 1.7-12.0 [facility] Comment on above: Performed By: #### U RTPCR #### [facility] [address] [place] [address] Dr. Dwight Waters NEUT # 3.6 103/ul Normal 1.4-6.5 [facility] Comment on above: Performed By: #### U RTPCR #### [facility] [address] [place] [address] Dr. Dwight Waters Neutrophils/100 WBC (Bld) 57.7 % Normal 43.0-75.0 [facility] Comment on above: Performed By: #### U RTPCR #### [facility] [address] [place] [address] Dr. Dwight Waters Platelet mean volume (Bld) [Entitic vol] 9.9 fL Normal 9.5-13.5 [facility] Comment on above: Performed By: #### U RTPCR #### [facility] [address] [place] [address] Dr. Dwight Waters PLT 249 103/ul Normal 150-450 [facility] Comment on above: Performed By: #### U RTPCR #### [facility] [address] [place] [address] Dr. Dwight Waters RBC 5.42 106/ul Normal 4.70-6.10 [facility] Comment on above: Performed By: #### U RTPCR #### [facility] [address] [place] [address] Dr. Dwight Waters WBC 6.3 103/ul Normal 4.0-11.0 [facility] Comment on above: Performed By: #### U RTPCR #### [facility] [address] [place] [address] Dr. Dwight Waters ER URINE PROFILEon 2 Bilirubin Ql (U) Unable to perform testing due to color interference. Abnormal NEGATIVE [facility] Comment on above: Performed By: #### U RTPCR #### [facility] [address] [place] [address] Dr. Dwight Waters Clarity (U) TURBID Abnormal CLEAR [facility] Comment on above: Performed By: #### U RTPCR #### [facility] [address] [place] [address] Dr. Dwight Waters Color (U) RED Abnormal YELLOW [facility] Comment on above: Performed By: #### U RTPCR #### [facility] [address] [place] [address] Dr. Dwight Waters ERUAHD A micrscopic examination will be performed if indicated. Normal [facility] Comment on above: Performed By: #### U RTPCR #### [facility] [address] [place] [address] Dr. Dwight Waters Glucose Ql (U) Unable to perform testing due to color interference. Abnormal NEGATIVE [facility] Comment on above: Performed By: #### U RTPCR #### [facility] [address] [place] [address] Dr. Dwight Waters Hemoglobin Ql (U) Unable to perform testing due to color interference. Abnormal NEGATIVE [facility] Comment on above: Performed By: #### U RTPCR #### [facility] [address] [place] [address] Dr. Dwight Waters Ketones Ql (U) Unable to perform testing due to color interference. Abnormal NEGATIVE [facility] Comment on above: Performed By: #### U RTPCR #### [facility] [address] [place] [address] Dr. Dwight Waters LEUKOCYTES Unable to perform testing due to color interference. Abnormal NEGATIVE [facility] Comment on above: Performed By: #### U RTPCR #### [facility] [address] [place] [address] Dr. Dwight Waters Nitrite Ql (U) Unable to perform testing due to color interference. Abnormal NEGATIVE [facility] Comment on above: Performed By: #### U RTPCR #### [facility] [address] [place] [address] Dr. Dwight Waters pH (U) 6.5 [pH] Normal 5-9 [facility] Comment on above: Performed By: #### U RTPCR #### [facility] [address] [place] [address] Dr. Dwight Waters SPEC GRAVITY 1.020 Normal 1.005-<=1.025 [facility] Comment on above: Performed By: #### U RTPCR #### [facility] [address] [place] [address] Dr. Dwight Waters UA PROTEIN Unable to perform testing due to color interference. Normal NEGATIVE/ TRACE [facility] Comment on above: Performed By: #### U RTPCR #### [facility] [address] [place] [address] Dr. Dwight Waters UR MICRO IND INDICATED Normal [facility] Comment on above: Performed By: #### U RTPCR #### [facility] [address] [place] [address] Dr. Dwight Waters UROBILINOGEN Unable to perform testing due to color interference. Normal 0.2 - 1.0 [facility] Comment on above: Performed By: #### U RTPCR #### [facility] [address] [place] [address] Dr. Dwight Waters PROF 14(COMP METB)on 022 Albumin [Mass/Vol] 3.8 g/dL Normal 3.4-5.0 [facility] Comment on above: Performed By: #### C MP #### [facility] [address] [place] [address] Dr. Dwight Waters Albumin/Globulin [Mass ratio] 1.1 {ratio} Normal [facility] Comment on above: Performed By: #### C MP #### [facility] [address] [place] [address] Dr. Dwight Waters ALP [Catalytic activity/Vol] 106 U/L Normal 46-116 [facility] Comment on above: Performed By: #### C MP #### [facility] [address] [address] [address] Dwight Waters ALT [Catalytic activity/Vol] 30 U/L Normal 16-63 [facility] Comment on above: Performed By: #### C MP #### [facility] [address] [address] [address] Dwight Waters Anion gap [Moles/Vol] 11.7 mmol/L Normal [facility] Comment on above: Performed By: #### C MP #### [facility] [address] [place] [address] Dr. Dwight Waters AST [Catalytic activity/Vol] 16 U/L Normal 15-37 [facility] Comment on above: Performed By: #### C MP #### [facility] [address] [place] [address] Dr. Dwight Waters Bilirubin [Mass/Vol] 0.6 mg/dL Normal 0.2-1.0 [facility] Comment on above: Performed By: #### C MP #### [facility] [address] [place] [address] Dr. Dwight Waters Calcium [Mass/Vol] 9.1 mg/dL Normal 8.5-10.1 [facility] Comment on above: Performed By: #### C MP #### [facility] [address] [place] [address] Dr. Dwight Waters CO2 [Moles/Vol] 27.4 mmol/L Normal 21.0-32.0 [facility] Comment on above: Performed By: #### C MP #### [facility] [address] [place] [address] Dr. Dwight Waters Creatinine [Mass/Vol] 1.18 mg/dL Normal 0.70-1.30 [facility] Comment on above: Performed By: #### C MP #### [facility] [address] [place] [address] Dr. Dwight Waters EGFR-AF SWISS >60 Normal >=60 [facility] Comment on above: Performed By: #### C MP #### [facility] [address] [place] [address] Dr. Dwight Waters EGFR-NON AF SWISS >60 Normal >=60 [facility] Comment on above: Performed By: #### C MP #### [facility] [address] [place] [address] Dr. Dwight Waters Globulin (S) [Mass/Vol] 3.6 g/dL Normal [facility] Comment on above: Performed By: #### C MP #### [facility] [address] [place] [address] Dr. Dwight Waters Glucose [Mass/Vol] 192 mg/dL Critically high 74-106 T [facility] Comment on above: Performed By: #### C MP #### [facility] [address] [place] [address] Dr. Dwight Waters Potassium [Moles/Vol] 4.1 mmol/L Normal 3.5-5.1 [facility] Comment on above: Performed By: #### C MP #### [facility] [address] [place] [address] Dr. Dwight Waters Protein [Mass/Vol] 7.4 g/dL Normal 6.4-8.2 [facility] Comment on above: Performed By: #### C MP #### [facility] [address] [place] [address] Dr. Dwight Waters Sodium [Moles/Vol] 142 mmol/L Normal 136-145 [facility] Comment on above: Performed By: #### C MP #### [facility] [address] [place] [address] Dr. Dwight Waters Urea nitrogen [Mass/Vol] 17.0 mg/dL Normal 7.0-18.0 [facility] Comment on above: Performed By: #### C MP #### [facility] [address] [place] [address] Dr. Dwight Waters Urea nitrogen/Creatinine [Mass ratio] 14.4 mg/mg Normal [facility] Comment on above: Performed By: #### C MP #### [facility] [facility] [address] [place] [address] Dr. Dwight Waters URINE MICROSCOPIC ONLYon 06- 12-2022 BACTERIA NONE SEEN Normal NONE SEEN [facility] Comment on above: Performed By: #### U RTPCR #### [facility] [address] [place] [address] Dr. Dwight Waters Bacteria identified Cx Nom (U) NOT INDICATED Normal [facility] Comment on above: Performed By: #### U RTPCR #### [facility] [address] [place] [address] Dr. Dwight Waters CAST NONE SEEN Normal NONE SEEN [facility] Comment on above: Performed By: #### U RTPCR #### [facility] [address] [place] [address] Dr. Dwight Waters Crystals LM Nom (Urine sed) NONE SEEN Normal NONE SEEN [facility] Comment on above: Performed By: #### U RTPCR #### [facility] [address] [place] [address] Dr. Dwight Waters Epithelial cells LM Ql (Urine sed) RARE Normal NONE SEEN /RARE [facility] Comment on above: Performed By: #### U RTPCR #### [facility] [address] [place] [address] Dr. Dwight Waters MUCOUS NONE SEEN Normal NONE SEEN [facility] Comment on above: Performed By: #### U RTPCR #### [facility] [address] [place] [address] Dr. Dwight Waters RBC (U) [#/Vol] /uL Abnormal 0-2 [facility] Comment on above: Performed By: #### U RTPCR #### [facility] [address] [place] [address] Dr. Dwight Waters WBC NONE SEEN Normal NONE SEEN [facility] Comment on above: Performed By: #### U RTPCR #### [facility] [address] [place] [address] Dr. Dwight Waters K (Potassium)on 01-06-2020 Potassium [Moles/Vol] 4.4 mmol/L Normal 3.7-5.3 [facility] Comment on above: Performed By: #### K #### [facility] [address] [place], [facility] Research Assistant Professor: Kehinde Woodward MD Potassiumon 01-06-2020 Potassium [Moles/Vol] 4.4 mmol/L 3.7 - 5.3 mmol/L [facility] Work Phone: Hemoglobin and Hematocrit, B loodon 10-24-2019 Hematocrit (Bld) [Volume fraction] 23.6 % Low 40.7 - 50.3 % [place] Hemoglobin (Bld) [Mass/Vol] 7.3 g/dL Low 13 - 17 g/dL [place] Interpretation and review of laboratory results Abnormal [place] Hgb/Hcton 10-24-2019 Hematocrit (Bld) [Volume fraction] 23.6 % Low 40.7-50.3 [facility] Comment on above: Performed By: #### H H #### [facility] [address] [place] [address] [place] [address] Research Assistant Professor: Kehinde Woodward MD Hemoglobin (Bld) [Mass/Vol] 7.3 g/dL Low 13.0-17.0 [facility] Comment on above: Performed By: #### H H #### [address] [place] [address] Research Assistant Professor: Kehinde Woodward MD Hemoglobinon 08-27-2019 Hemoglobin (Bld) [Mass/Vol] 7.5 g/dL Low 13.0-17.0 [facility] Comment on above: Performed By: #### H GB #### [facility] [address] [place] [address] [place] [address] Research Assistant Professor: Kehinde Woodward MD Hemoglobin (Bld) [Mass/Vol] 7.5 g/dL Low 13 - 17 g/dL [place] Interpretation and review of laboratory results Abnormal [place] Hemoglobinon 08-08-2019 Hemoglobin (Bld) [Mass/Vol] 8.3 g/dL Low 13.0-17.0 [facility] Comment on above: Performed By: #### H GB #### [facility] [address] [place], [place] [id number] Research Assistant Professor: Kehinde Woodward MD Hemoglobin (Bld) [Mass/Vol] 8.3 g/dL Low 13 - 17 g/dL [place] Interpretation and review of laboratory results Abnormal [place] Hemoglobinon 08-04-2019 Hemoglobin (Bld) [Mass/Vol] 8.0 g/dL Low 13.0-17.0 [facility] Comment on above: Performed By: #### H GB #### [facility] [address] [place] [address] Research Assistant Professor: Kehinde Woodward MD Hemoglobin A1Con 08-03-2019 HbA1c (Bld) [Mass fraction] % Low 4.8-5.9 [facility] Comment on above: Result Comment: The ADA and AACC recommend providing the estimated average glucose result to permit better patient understanding of their HBA1c result. Performed By: #### G LYHGB #### [address] [place], [place] [id number] Research Assistant Professor: Kehinde Woodward MD Glucose [Mass/Vol] mg/dL mg/dL [place] Comment on above: The ADA and AACC rec ommend providing the estimated average glucose result to permit better patient understanding of their HBA1c result. HbA1c (Bld) [Mass fraction] % Low 4.8 - 5.9 % [place] Interpretation and review of laboratory results Abnormal [place] Hemoglobinon 08-01-2019 Hemoglobin (Bld) [Mass/Vol] 8.1 g/dL Low 13.0-17.0 [facility] Comment on above: Performed By: #### H GB #### [facility] [address] [place] [place] [address] Research Assistant Professor: Kehinde Woodward MD Hemoglobin (Bld) [Mass/Vol] 8.1 g/dL Low 13 - 17 g/dL [place] Interpretation and review of laboratory results Abnormal [place] Hgb/Hcton 06-10-2019 Hematocrit (Bld) [Volume fraction] 24.3 % Low 40.7-50.3 [facility] Comment on above: Performed By: #### H H #### [facility] [address] [place]ña, [place] [id number] Research Assistant Professor: Kehinde Woodward MD Hemoglobin (Bld) [Mass/Vol] 7.4 g/dL Low 13.0-17.0 [facility] Comment on above: Performed By: #### H H #### [facility] [address] [place], [place] [id number] Research Assistant Professor: Kehinde Woodward MD Hemoglobinon 06-01-2019 Hemoglobin (Bld) [Mass/Vol] 7.2 g/dL Low 13.0-17.0 [facility] Comment on above: Performed By: #### H GB #### [facility] [address] [place]ña, [place] [id number] Research Assistant Professor: Kehinde Woodward MD K (Potassium)on 01-14-2019 Potassium [Moles/Vol] 3.6 mmol/L Low 3.7-5.3 [facility] Comment on above: Performed By: #### K #### [facility] [address] [place]ña, [place] [id number] Research Assistant Professor: Kehinde Woodward MD Otheron 10-19-2018 IMPRESSION: 1. [...] confirmatory testing will follow. Invalid Interpretation Code QASIM LOUIS Comment on above: This Liquid Chromato graphy Mass Spectrometry (LC/MS/MS) test was developed and its performance characteristics determined by Toxicology Laboratory at [facility]. It has not been cleared [...] Amitriptyline(50), Amphetamine(250), Atenolol(500), Barbiturates(1000), Benzoylecgonine(50), Buprenorphine(50), Bupropion(25), Caffeine(92601), Chlordiazepoxide(50), Chlorpheniramine(100), Chlorpromazine(50), Citalopram(100), Clonazepam(200), Cocaine(25), Codeine(200), [...] Code LAB, [facility] TOXICOLOGY SCREEN URINE - [facility] 10-12-2018 Drugs identified Screen Nom (U) For Medical Purposes Only, Non-forensic, screen results are presumptive. No confirmatory testing will follow. Invalid Interpretation Code LAB, [facility] Comment on above: This Liquid Chromato graphy Mass Spectrometry (LC/MS/MS) test was developed and its performance characteristics determined by Toxicology Laboratory at [facility]. It has not been cleared [...] Amitriptyline(50), Amphetamine(250), Atenolol(500), Barbiturates(200), Benzoylecgonine(50), Buprenorphine(500), Bupropion(25), Caffeine(67735), Cannabinoids(THC)(50), Chlordiazepoxide(50), Chlorpheniramine(100), Chlorpromazine(50), Citalopram(100), Clonazepam(200), Cocaine(25), [...] Blood Pressure Location Clementina Montesinos [facility] 09-08-2024 13:40-0400 Diastolic blood pressure 90 mm[Hg] Clementina Montesinos [facility] 09-08-2024 13:40-0400 Heart rate 66 /min Clementina Montesinos [facility] 09-08-2024 13:40-0400 Systolic blood pressure 144 mm[Hg] Clementina Montesinos [facility] 06-17-2024 08:37-0400 Body mass index (BMI) [Ratio] 29.43 kg/m2 Rebeca Gutierrez ENTRY ENGINEER-TRANSFORMER [employer] SUPER[employer] Work Phone: [facility] 06-17-2024 08:37-0400 Body temperature 97.39 [degF] Rebeca Gutierrez ENTRY ENGINEER-TRANSFORMER [employer] SUPERVISOR Work Phone: [facility] 06-17-2024 08:37-0400 Body weight 85.23 kg Rebeca Gutierrez ENTRY ENGINEER-TRANSFORMER [employer] SUPERVISOR Work Phone: [facility] 06-17-2024 08:37-0400 Diastolic blood pressure 75 mm[Hg] Rebeca Gutierrez ENTRY ENGINEER-TRANSFORMER [employer] SUPERVISOR Work Phone: [facility] 06-17-2024 08:37-0400 Heart rate 53 /min Rebeca Gutierrez ENTRY ENGINEER-TRANSFORMER [employer] SUPERVISOR Work Phone: [facility] 06-17-2024 08:37-0400 Systolic blood pressure 143 mm[Hg] Rebeca Gutierrez ENTRY ENGINEER-TRANSFORMER [employer] SUPERVISOR Work Phone: [facility] 06-17-2024 08:36-0400 Body mass index (BMI) [Ratio] 29.43 kg/m2 Daisha Sobotka DO Work Phone: [facility] 06-17-2024 08:36-0400 Body temperature 97.39 [degF] Daisha Sobotka DO Work Phone: [facility] 06-17-2024 08:36-0400 Body weight 85.23 kg Daisha Sobotka DO Work Phone: [facility] 06-17-2024 08:36-0400 Diastolic blood pressure 75 mm[Hg] Daisha Sobotka DO Work Phone: [facility] 06-17-2024 08:36-0400 Heart rate 53 /min Daisha Sobotka DO Work Phone: [facility] 06-17-2024 08:36-0400 Systolic blood pressure 143 mm[Hg] Daisha Max DO Work Phone: [facility] 02-26-2024 09:07-0400 Diastolic blood pressure 56 mm[Hg] Candie Almaguer MD Work Phone: [facility] 02-26-2024 09:07-0400 Heart rate 65 /min Candie Almaguer MD Work Phone: [facility] 02-26-2024 09:07-0400 Systolic blood pressure 113 mm[Hg] Candie Almaguer MD Work Phone: [facility] 02-26-2024 09:06-0400 Body height 170.2 cm Candie Almaguer MD Work Phone: [facility] 02-26-2024 09:06-0400 Body mass index (BMI) [Ratio] 28.9 kg/m2 Candie Almaguer MD Work Phone: [facility] 02-26-2024 09:06-0400 Body weight 83.69 kg Candie Almaguer MD Work Phone: [facility] 02-26-2024 09:06-0400 Respiratory rate 20 /min Candie Almaguer MD Work Phone: [facility] 02-26-2024 09:06-0400 SaO2% (BldA) [Mass fraction] 97 % Candie Almaguer MD Work Phone: [facility] 01-23-2024 15:04-0500 Body temperature 97.9 [degF] Kevin Prince MD Work Phone: [facility] 01-23-2024 15:04-0500 Diastolic blood pressure 67 mm[Hg] Kevin Prince MD Work Phone: [facility] 01-23-2024 15:04-0500 Heart rate 51 /min Kevin Prince MD Work Phone: [facility] 01-23-2024 15:04-0500 Respiratory rate 16 /min Kevin Prince MD Work Phone: [facility] 01-23-2024 15:04-0500 SaO2% (BldA) [Mass fraction] 94 % Kevin Prince MD Work Phone: [facility] 01-23-2024 15:04-0500 Systolic blood pressure 151 mm[Hg] Kevin Prince MD Work Phone: [facility] 01-23-2024 10:46-0500 Body mass index (BMI) [Ratio] 30.94 kg/m2 Kevin Prince MD Work Phone: [facility] 01-23-2024 10:46-0500 Body weight 89.6 kg Kevin Prince MD Work Phone: [facility] 01-18-2024 11:21-0500 Body height 170.2 cm Kevin Prince MD Work Phone: [facility] 01-06-2024 09:04-0500 Body height 170.2 cm Zuly Bruno CEMETERY WORKER Work Phone: [facility] 01-06-2024 09:04-0500 Body mass index (BMI) [Ratio] 32.42 kg/m2 Zuly Bruno CEMETERY WORKER Work Phone: [facility] 01-06-2024 09:04-0500 Body temperature 97.81 [degF] Zuly Bruno CEMETERY WORKER Work Phone: [facility] 01-06-2024 09:04-0500 Body weight 93.89 kg Zuly Bruno CEMETERY WORKER Work Phone: [facility] 01-06-2024 09:04-0500 Diastolic blood pressure 70 mm[Hg] Zuly Torresholz CEMETERY WORKER Work Phone: [facility] 01-06-2024 09:04-0500 Heart rate 95 /min Zulytray Torresholz CEMETERY WORKER Work Phone: [facility] 01-06-2024 09:04-0500 Respiratory rate 17 /min Zuly Torresholz CEMETERY WORKER Work Phone: [facility] 01-06-2024 09:04-0500 SaO2% (BldA) [Mass fraction] 99 % Zulytray Owenhholz CEMETERY WORKER Work Phone: [facility] 01-06-2024 09:04-0500 Systolic blood pressure 138 mm[Hg] Zuly Brianholz CEMETERY WORKER Work Phone: [facility] 09-11-2023 10:31-0400 Body temperature 97.81 [degF] Steve Tammy MBBS Work Phone: [facility] 09-11-2023 10:31-0400 Diastolic blood pressure 66 mm[Hg] Steve Tammy MBBS Work Phone: [facility] 09-11-2023 10:31-0400 Heart rate 70 /min Steve Tammy MBBS Work Phone: [facility] 09-11-2023 10:31-0400 Respiratory rate 20 /min Steve Tammy MBBS Work Phone: [facility] 09-11-2023 10:31-0400 SaO2% (BldA) [Mass fraction] 91 % Steve Tammy MBBS Work Phone: [facility] 09-11-2023 10:31-0400 Systolic blood pressure 129 mm[Hg] Steve Tammy MBBS Work Phone: [facility] 09-10-2023 15:50-0400 Body mass index (BMI) [Ratio] 31.99 kg/m2 Steve Tammy MBBS Work Phone: [facility] 09-10-2023 15:50-0400 Body weight 92.67 kg Steve Tammy MBBS Work Phone: [facility] 09-02-2023 07:32-0400 Body height 170.2 cm Steve Tammy MBBS Work Phone: [facility] 08-28-2023 13:33-0400 Body height 170.2 cm Steve Tammy MBBS Work Phone: [facility] 08-28-2023 13:33-0400 Body mass index (BMI) [Ratio] 32.12 kg/m2 Steve Tammy MBBS Work Phone: [facility] 08-28-2023 13:33-0400 Body temperature 97.3 [degF] Steve Tammy MBBS Work Phone: [facility] 08-28-2023 13:33-0400 Body weight 93.03 kg Steve Tammy MBBS Work Phone: [facility] 08-28-2023 13:33-0400 Diastolic blood pressure 41 mm[Hg] Steve Tammy MBBS Work Phone: [facility] 08-28-2023 13:33-0400 Heart rate 116 /min Steve Tammy MBBS Work Phone: [facility] 08-28-2023 13:33-0400 Systolic blood pressure 106 mm[Hg] Steve Tammy MBBS Work Phone: [facility] 06-12-2023 14:50-0400 Body mass index (BMI) [Ratio] 33.8 kg/m2 Rebeca Gutierrez ENTRY ENGINEER-TRANSFORMER [employer] SUPERVISOR Work Phone: [facility] 06-12-2023 14:50-0400 Body temperature 97.3 [degF] Rebeca Gutierrez ENTRY ENGINEER-TRANSFORMER [employer] SUPERVISOR Work Phone: [facility] 06-12-2023 14:50-0400 Body weight 97.89 kg Rebeca Gutierrez ENTRY ENGINEER-TRANSFORMER [employer]OP SUPERVISOR Work Phone: [facility] 06-12-2023 14:50-0400 Diastolic blood pressure 77 mm[Hg] Rebeca Gutierrez ENTRY ENGINEER-TRANSFORMER [employer]OP SUPERVISOR Work Phone: [facility] 06-12-2023 14:50-0400 Heart rate 76 /min Rebeca Gutierrez ENTRY ENGINEER-TRANSFORMER SHOP SUPERVISOR Work Phone: [facility] 06-12-2023 14:50-0400 Systolic blood pressure 146 mm[Hg] Rebeca Gutierrez ENTRY ENGINEER-TRANSFORMER SHOP SUPERVISOR Work Phone: [facility] 01-16-2023 08:57-0500 Body height 170.2 cm [facility] Work Phone: [facility] 01-16-2023 08:57-0500 Body mass index (BMI) [Ratio] 33.66 kg/m2 [facility] Work Phone: [facility] 01-16-2023 08:57-0500 Body temperature 97.3 [degF] [facility] Work Phone: [facility] 01-16-2023 08:57-0500 Body weight 97.48 kg [facility] Work Phone: [facility] 01-16-2023 08:57-0500 Diastolic blood pressure 75 mm[Hg] [facility] Work Phone: [facility] 01-16-2023 08:57-0500 Heart rate 76 /min [facility] Work Phone: [facility] 01-16-2023 08:57-0500 Systolic blood pressure 142 mm[Hg] [facility] Work Phone: [facility] 09-10-2022 09:38-0400 Body height 170.2 cm Ryan Yepez MD Work Phone: [facility] 09-10-2022 09:38-0400 Body mass index (BMI) [Ratio] 33.67 kg/m2 Ryan Yepez MD Work Phone: [facility] 09-10-2022 09:38-0400 Body weight 97.52 kg Ryan Yepez MD Work Phone: [facility] 09-10-2022 09:38-0400 Diastolic blood pressure 83 mm[Hg] Ryan Yepez MD Work Phone: [facility] 09-10-2022 09:38-0400 Heart rate 64 /min Ryan Yepez MD Work Phone: [facility] 09-10-2022 09:38-0400 SaO2% (BldA) [Mass fraction] 96 % Ryan Yepez MD Work Phone: [facility] 09-10-2022 09:38-0400 Systolic blood pressure 129 mm[Hg] Ryan Yepez MD Work Phone: [facility] 07-07-2022 13:48-0400 Diastolic blood pressure 76 mm[Hg] Ryan Yepez MD Work Phone: [facility] 07-07-2022 13:48-0400 Heart rate 82 /min Ryan Yepez MD Work Phone: [facility] 07-07-2022 13:48-0400 SaO2% (BldA) [Mass fraction] 96 % Ryan Yepez MD Work Phone: [facility] 07-07-2022 13:48-0400 Systolic blood pressure 141 mm[Hg] Ryan Yepez MD Work Phone: [facility] 06-27-2022 13:32-0400 Body height 170.2 cm Ryan Yepez MD Work Phone: [facility] 06-27-2022 13:32-0400 Body mass index (BMI) [Ratio] 34.24 kg/m2 Ryan Yepez MD Work Phone: [facility] 06-27-2022 13:32-0400 Body temperature 98.6 [degF] Ryan Yepez MD Work Phone: [phone])[phone] [address] 06-27-2022 13:32-0400 Body weight 99.16 kg Ryan Yepez MD Work Phone: [facility] 06-27-2022 13:32-0400 Diastolic blood pressure 78 mm[Hg] Ryan Yepez MD Work Phone: [facility] 06-27-2022 13:32-0400 Heart rate 77 /min Ryan Yepez MD Work Phone: [facility] 06-27-2022 13:32-0400 SaO2% (BldA) [Mass fraction] 95 % Ryan Yepez MD Work Phone: [facility] 06-27-2022 13:32-0400 Systolic blood pressure 121 mm[Hg] Ryan Yepez MD Work Phone: [facility] 06-27-2022 10:52-0400 Body height 170.2 cm Rena Brewster RN [facility] 06-27-2022 10:52-0400 Body mass index (BMI) [Ratio] 34.46 kg/m2 Rena Brewster RN [facility] 06-27-2022 10:52-0400 Body temperature 98.2 [degF] Rena Brewster RN [facility] 06-27-2022 10:52-0400 Body weight 99.79 kg Rena Brewster RN [facility] 06-27-2022 10:52-0400 Diastolic blood pressure 73 mm[Hg] Rena Brewster RN [facility] 06-27-2022 10:52-0400 Heart rate 78 /min Rena Brewster RN [facility] 06-27-2022 10:52-0400 Respiratory rate 20 /min Rena Brewster RN [facility] 06-27-2022 10:52-0400 SaO2% (BldA) [Mass fraction] 97 % Rena Brewster RN [facility] 06-27-2022 10:52-0400 Systolic blood pressure 135 mm[Hg] Rena Brewster RN [facility] 06-12-2022 14:23-0400 Body mass index (BMI) [Ratio] 34.59 kg/m2 Steve Tammy MBBS Work Phone: [facility] 06-12-2022 14:23-0400 Body temperature 97 [degF] Steve Tammy MBBS Work Phone: [facility] 06-12-2022 14:23-0400 Body weight 100.2 kg Steve Tammy MBBS Work Phone: [facility] 06-12-2022 14:23-0400 Diastolic blood pressure 66 mm[Hg] Steve Tammy MBBS Work Phone: [facility] 06-12-2022 14:23-0400 Heart rate 63 /min Steve Tammy MBBS Work Phone: [facility] 06-12-2022 14:23-0400 Systolic blood pressure 133 mm[Hg] Steve Tammy MBBS Work Phone: [facility] 05-20-2022 15:21-0400 Body temperature 97.9 [degF] Gian Villatoro MD Work Phone: [facility] 05-20-2022 15:21-0400 Diastolic blood pressure 64 mm[Hg] Gian Villatoro MD Work Phone: [facility] 05-20-2022 15:21-0400 Heart rate 55 /min Gian Villatoro MD Work Phone: [facility] 05-20-2022 15:21-0400 Respiratory rate 15 /min Gian Villatoro MD Work Phone: [phone] [address] 05-20-2022 15:21-0400 SaO2% (BldA) [Mass fraction] 95 % Gian Villatoro MD Work Phone: [facility] 05-20-2022 15:21-0400 Systolic blood pressure 145 mm[Hg] Gian Villatoro MD Work Phone: [phone] [address] 05-19-2022 12:15-0400 Body mass index (BMI) [Ratio] 35.87 kg/m2 Gian Villatoro MD Work Phone: 9(989)[phone] [address] 05-19-2022 12:15-0400 Body weight 103.92 kg Gian Villatoro MD Work Phone: [phone] [place] [address] Comment on above: standing scale 05-16-2022 16:19-0400 Body height 170.2 cm Gian Villatoro MD Work Phone: [facility] 10-19-2018 08:44-0500 BMI (Body Mass Index) 26.58 kg/m2 [facility] Work Phone: 10-19-2018 08:44-0500 BP Diastolic 76 mm[Hg] [facility] Work Phone: 10-19-2018 08:44-0500 BP Systolic 144 mm[Hg] [facility] Work Phone: 10-19-2018 08:44-0500 Height 172.7 cm [facility] Work Phone: 10-19-2018 08:44-0500 Pulse (Heart Rate) 92 /min [facility] Work Phone: 10-19-2018 08:44-0500 Pulse Oximetry 99 % [facility] Work Phone: 10-19-2018 08:44-0500 Respiratory Rate 16 /min [facility] Work Phone: 10-19-2018 08:44-0500 Weight 79.29 kg [facility] Work Phone: 10-12-2018 09:50-0500 BMI (Body Mass Index) 27.24 kg/m2 [facility] Work Phone: 10-12-2018 09:50-0500 Body Temperature 98.6 [degF] [facility] Work Phone: 10-12-2018 09:50-0500 BP Diastolic 80 mm[Hg] [facility] Work Phone: 10-12-2018 09:50-0500 BP Systolic 157 mm[Hg] [facility] Work Phone: 10-12-2018 09:50-0500 Height 169.5 cm [facility] Work Phone: 10-12-2018 09:50-0500 Pulse (Heart Rate) 94 /min [facility] Work Phone: 10-12-2018 09:50-0500 Weight 78.29 kg [facility] Work Phone: Encounters Encounter Date Encounter Type Care Provider Facility Start: 11-22-2024 ambulatory Steph X Orzech Facilit y:[facility] Start: 10-10-2024 End: 10-10-2024 Clinis[facility] Result Encounter Generic External Data Provider [facility] External Department Unsolicited Start: 10-10-2024 End: 10-10-2024 [facility] Result Encounter Generic External Data Provider [facility] External Department Unsolicited Start: 10-01-2024 End: 10-03-2024 Refill Momo Verdugo MD Work Phone: [facility] Comment on above: Decreased urine stre am [...] Start: 09-08-2024 End: 09-08-2024 ambulatory [facility] Start: 09-08-2024 End: 09-08-2024 Patient encounter procedure Clementina J Galea [facility] Start: 09-07-2024 ambulatory ZULY BRUNO Facility: [facility] Start: 09-05-2024 End: 09-05-2024 ambulatory Angel Calee RPsylvester,PharmD Pharmacy Outpatient [facility] [place] Start: 09-05-2024 End: 09-05-2024 Patient encounter procedure Angel Carpio RPh,PharmD Pharmacy Outpatient [facility] [place] Start: 08-24-2024 ambulatory Steph Almodovar Facility: [facility] Start: 08-23-2024 End: 08-23-2024 ambulatory ZULY BRUNO Not Available Start: 06-23-2024 End: 06-23-2024 ambulatory Meka Munoz [facility] Pharmacy Outpatient [facility] [place] Start: 06-23-2024 End: 06-23-2024 Patient encounter procedure Meka Munoz [facility] Pharmacy Outpatient [facility] [place] Start: 06-17-2024 End: 06-17-2024 Office outpatient visit 25 minutes Daisha Max DO Work Phone: [facility] Comment on above: Liver lesion (Primar y Dx); Liver transplant recipient; High risk medication use; Therapeutic drug monitoring; 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) Start: 06-17-2024 ambulatory DAISHA MAX [facility] Start: 05-26-2024 End: 05-26-2024 ambulatory Evan Bolton RPh,PharmD Pharmacy Outpatient [facility] [place] Start: 05-26-2024 End: 05-26-2024 Patient encounter procedure Evan Bolton RPh,PharmD Pharmacy Outpatient [facility] [place] Start: 05-13-2024 End: 05-13-2024 ambulatory [facility] Start: 04-18-2024 End: 04-18-2024 ambulatory ZULY BRUNO Not Available Start: 03-24-2024 End: 03-24-2024 Patient encounter procedure Angel Carpio RPh,PharmD Pharmacy Outpatient [facility] [place] Start: 03-24-2024 End: 03-24-2024 ambulatory Angel Carpio RPh,PharmD Pharmacy Outpatient [facility] [place] Start: 03-22-2024 End: 03-22-2024 ambulatory JOHNNA HOLLIDAY Not Available Start: 03-17-2024 End: 03-17-2024 ambulatory JOHNNA HOLLIDAY Not Available Start: 03-14-2024 End: 03-14-2024 ambulatory FIDELINA SANCHEZ Not Available Start: 03-10-2024 End: 03-10-2024 ambulatory JOHNNA HOLLIDAY Not Available Start: 03-08-2024 End: 03-08-2024 ambulatory JOHNNA HOLLIDAY Not Available Start: 03-03-2024 End: 03-03-2024 ambulatory JOHNNA SHANTANUSHANTA Not Available Start: 03-02-2024 End: 03-02-2024 ambulatory Meka Munoz [facility] Pharmacy Outpatient [facility] [place] Start: 03-02-2024 End: 03-02-2024 Patient encounter procedure Meka Munoz [facility] Pharmacy Outpatient [facility] [place] Start: 03-01-2024 ambulatory ZULY BRUNO Facility: [facility] Start: 03-01-2024 End: 03-01-2024 ambulatory JOHNNA HOLLIDAY Not Available Start: 02-26-2024 ambulatory CANDIE ALMAGUER Facility: [facility] Start: 02-26-2024 End: 02-26-2024 Office outpatient new 30 minutes Candie Almaguer MD Work Phone: [facility] Comment on above: Heart failure, diast olic, acute (Primary Dx) Start: 02-26-2024 ambulatory KELVIN PACHECO Facility: [facility] Start: 02-25-2024 End: 02-25-2024 ambulatory FIDELINA SANCHEZ Not Available Start: 02-23-2024 End: 02-23-2024 ambulatory PALMA PALACIOS Not Available Start: 02-11-2024 Patient encounter procedure Generic Provider [facility] Start: 02-11-2024 End: 02-11-2024 ambulatory ZULY KIANA Not Available Start: 01-16-2024 End: 01-23-2024 Encounter for other preprocedural examination KELVIN PACHECO Facility:[facility] Start: 01-16-2024 End: 01-23-2024 Evaluation and management of inpatient Kevin Prince MD Work Phone: [id number] Comment on above: Pleural effusion on right Start: 01-16-2024 End: 01-23-2024 Patient encounter status Kevin Prince MD Work Phone: [facility] Work Phone: Start: 01-12-2024 End: 01-12-2024 ambulatory Angel Fete RPh,PharmD Pharmacy Outpatient [facility] [place] Start: 01-12-2024 End: 01-12-2024 Patient encounter procedure Angel Fete RPh,PharmD Pharmacy Outpatient [facility] [place] Start: 01-08-2024 Clinisync Result Encounter Generic External Data Provider [facility] External Department Unsolicited Start: 01-08-2024 Clinisync Result Encounter Generic External Data Provider [facility] External Department Unsolicited Start: 01-06-2024 End: 01-06-2024 Office outpatient visit 25 minutes Zuly Marissaz CEMETERY WORKER Work Phone: [facility] Comment on above: Bilateral lower extr emity edema (Primary Dx); 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); Atherosclerosis 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); Obesity (BMI 30-39.9); DARLENE (obstructive sleep apnea); Tremor; Immunocompromised ([facility]); Primary hypertension ([facility]); Shortness of breath Start: 01-06-2024 End: [...] [place] Start: 09-29-2023 ambulatory ZULY AICHHOLZ Facility: [facility] Start: 09-23-2023 ambulatory ZULY AICHHOLZ Facility: [facility] Start: 09-15-2023 ambulatory ZULY AICHHOLZ Facility: [facility] Start: 08-28-2023 End: 09-11-2023 Evaluation and management of inpatient Steve Katarzyna LEIGH Work Phone: [id number] Start: 08-28-2023 End: 08-28-2023 Office outpatient visit 25 minutes Steve LEIGH Work Phone: [facility] Comment on above: Immunosuppressed sta tus (Primary Dx); Kidney replaced by transplant; Aftercare following organ transplant; High risk medication use; Other general symptoms and signs; Abnormal blood chemistry; Hypertension secondary to other renal disorders Start: 08-19-2023 ambulatory Meka rueda [facility] Pharmacy Outpatient [facility] [place] Start: 08-19-2023 Patient encounter procedure Meka Munoz [facility] Pharmacy Outpatient [facility] [place] Start: 06-12-2023 End: 06-12-2023 Office outpatient visit 25 minutes Steve LEIGH Work Phone: [facility] Comment on above: 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) Start: 06-10-2023 ambulatory Maren Dipika BHAKTAh,PharmD Pharmacy Outpatient [facility] [place] Start: 06-10-2023 Patient encounter procedure Maren Hayeney RPh,PharmD Pharmacy Outpatient [facility] [place] Start: 04-28-2023 End: 04-29-[address] DOCTOR EVANS Facility:[facility] Start: 03-12-2023 ambulatory Angel Shirin RPh,PharmD Pharmacy Outpatient [facility] [place] Start: 03-12-2023 Patient encounter procedure Angel Madsenjyoti RPh,PharmD Pharmacy Outpatient [facility] [place] Start: 03-10-2023 ambulatory Angel Carpio RPsylvester,PharmD Pharmacy Outpatient [facility] [place] Start: 03-10-2023 Patient encounter procedure Angel Fetjyoti RPh,PharmD Pharmacy Outpatient [facility] [place] Start: 03-02-2023 End: 03-03-[address] DOCTOR EVANS Facility:[facility] Start: 01-16-2023 End: 01-16-2023 Office outpatient visit 25 minutes Daisha Max DO Work Phone: [facility] Comment on above: Abnormal blood chemi [...] MD Work Phone: [facility] Comment on above: BPH with obstruction /lower urinary tract symptoms (Primary Dx); Encounter for screening for malignant neoplasm of prostate Start: 08-28-2022 End: 08-29-2022 ambulatory ROB BRUNO Facility:[facility] Start: 08-14-2022 End: 08-15-[address] DOCTOR EVANS Facility:[facility] Start: 07-07-2022 End: 07-07-2022 Patient encounter procedure Ryan Yepez MD Work Phone: [facility] Comment on above: Other hydronephrosis (Primary Dx); [...] MD Work Phone: [facility] Comment on above: Other hydronephrosis (Primary Dx) [...] Start: 03-14-2022 ambulatory Comfort Rivera [facility] Work Phone: Pharmacy Outpatient [facility] [place] Start: 03-14-2022 Patient encounter procedure Comfort Rivera [facility] Work Phone: Pharmacy Outpatient [facility] [place] Start: 06-14-2021 End: 06-14-2021 ambulatory Comfort Rivera [facility] Work Phone: [facility] Start: 06-14-2021 Patient encounter procedure Comfort Rivera [facility] Work Phone: [facility] Start: 01-20-2020 End: 01-27-2020 Patient encounter procedure PEPE CASE Facility:[facility] Start: 01-06-2020 End: 01-07-2020 [facility] Start: 01-06-2020 End: 01-06-2020 Subsequent hospital visit by physician [facility] Start: 10-24-2019 End: 10-25-2019 Patient encounter procedure TANA CAMPA [facility] Start: 10-24-2019 End: 10-24-2019 Subsequent hospital visit by physician [facility] Start: 08-27-2019 End: 08-28-2019 Patient encounter procedure RENA GUDINO [facility] Start: 08-27-2019 End: 08-27-2019 Subsequent hospital visit by physician [facility] Start: 08-08-2019 End: 08-09-2019 Patient encounter procedure [facility] Start: 08-08-2019 End: 08-08-2019 Subsequent hospital visit by physician [facility] Start: 08-03-2019 End: 08-04-2019 Patient encounter procedure [facility] Start: 08-03-2019 End: 08-03-2019 Subsequent hospital visit by physician [facility] Start: 08-01-2019 End: 08-02-2019 Patient encounter procedure [facility] Start: 08-01-2019 End: 08-01-2019 Subsequent hospital visit by physician [facility] Start: 06-10-2019 End: 06-11-2019 Patient encounter procedure RENA GUDINO [facility] Start: 06-01-2019 End: 06-02-2019 [facility] Start: 01-14-2019 End: 01-15-2019 [facility] Start: 11-17-2018 End: 11-17-2018 Patient encounter procedure Fidelina Pierson [facility] Comment on above: Social Work Follow-u p Start: 10-19-2018 End: 10-19-2018 Patient encounter Autumn [facility] Comment [...] End: 10-13-2018 Patient encounter procedure Autumn Rooney [facility] Comment on above: Reschedule Outside Medical Allan rds Request Start: 10-12-2018 End: 10-12-2018 Patient encounter procedure Sophie Cary [facility] Comment on above: Alcoholic cirrhosis, unspecified whether ascites present (Primary Dx); Pre-transplant evaluation for liver transplant Start: 10-12-2018 End: 10-12-2018 Office outpatient new 60 minutes Daxjorgematthew Restrepo Work Phone: [facility] Comment on above: Alcoholic cirrhosis, unspecified whether ascites present; ESRD (end stage renal disease) on dialysis; Pre-transplant evaluation for liver transplant Start: 10-06-2018 End: 10-06-2018 Patient encounter procedure Yovani Orr Work Phone: Department of Radiology Comment on above: Canceled (Insurance Company Redirected Pt) Start: 10-05-2018 Patient encounter status Comfort Rivera [facility] Work Phone: [facility] Procedures Date Procedure Procedure Detail Performing Clinician Start: 10-10-2024 ALL CBC WITH AUTO DIFF Generic External Data Provider Start: 09-27-2024 ALL CBC WITH AUTO DIFF [...] #### C HM7, HFP, MGO #### [facility] ([facility]) [address] [place] [address] Start: 01-22-2024 Assay of magnesium Just in [...] 01-20-2024 Assay of magnesium Just in Jake LZU Work Phone: Start: 01-20-2024 Hepatic function panel Arelis Mera MD Work Phone: Start: 01-20-2024 ITRACONAZOLE LEVEL Jennifer Alarcon [facility] Work Phone: Start: 01-20-2024 Oscillating positive [...] quantifica tion each organism Fidelina Ortiz Alarcon [facility] Work Phone: Start: 01-18-2024 Echo tthrc [...] AURIS SCREEN BY PCR Carol Ann Capps ENTRY ENGINEER-TRANSACTIONAL ATTORNEY Work Phone: Start: 01-08-2024 ALL CBC WITH [...] blood Crow Diaz MD Work Phone: Start: End: 09-02-2023 Cytp slctv cell enhancement interpj [...] AURIS SCREEN BY PCR Carol Ann Capps ENTRY ENGINEER-TRANSACTIONAL ATTORNEY Work Phone: Start: 08-28-2023 CBC AND ELECTRONIC [...] above: Performed By: #### C MP #### [facility] [address] [place] [address] Dr. Dwight Waters Start: 07-07-2022 Rmvl nfros [...] liver trans plant Comfort Rivera [facility] Work Phone: Start: 04-08-2020 H/O: liver recipient Liver tra nsplant recipient Comfort Rivera [facility] Work Phone: Start: 01-06-2020 Potassium serum [...] transplant -donor kidney transplant recipient Comfort Rivera [facility] Work Phone: Start: 06-10-2019 HEMOGLOBIN AND HEMAT OCRIT, BLOOD ROB KASMANI Start: 06-01-2019 Blood count hemoglobin ROB KASMANI Start: 03-22-2019 Lipid 1996 panel - S fabricio or Plasma Comfort Rivera [facility] Work Phone: Start: 01-14-2019 Potassium serum [...] Start: 10-12-2018 End: 10-12-2018 Calcium total [employer]ani [employer] Work Phone: Start: 10-12-2018 End: 10-12-2018 CBC, EDIF, PLATELET Yovani Orr Work Phone: Start: 10-12-2018 End: 10-12-2018 Creatinine blood Yovani Orr Work Phone: Start: 10-12-2018 End: 10-12-2018 Drug screening cannabinoids natural Yovani Mejias [employer] Work Phone: Start: 10-12-2018 End: 10-12-2018 Hepatitis a antibody haab Yovani Mejias [employer] Work Phone: Start: 10-12-2018 End: 10-12-2018 Hepatitis b core antibody hbcab total Yovani Mejias [employer] Work Phone: Start: 10-12-2018 End: 10-12-2018 Hepatitis b surf antibody hbsab Yovani Mejias [employer] Work Phone: Start: 10-12-2018 End: 10-12-2018 Hepatitis c antibody Yovani Mejias [employer] Work Phone: Start: 10-12-2018 End: 10-12-2018 Iaad ia hepatitis b surface antigen Yovani Mejias [employer] Work Phone: Start: 10-12-2018 End: 10-12-2018 Iaad ia hiv-1 ag w/hiv-1 & hiv-2 antbdy single Yovani Mejias [employer] Work Phone: Start: 10-12-2018 End: 10-12-2018 PSA screening Yovani Mejias [employer] Work Phone: Start: 10-12-2018 End: 10-12-2018 Thromboplastin time partial plasma/whole blood Yovani Mejias [employer] Work Phone: Start: 10-12-2018 End: 10-12-2018 Assay of ethanol Yovani Mejias [employer] Work Phone: Start: 10-12-2018 End: 10-12-2018 Drug/substance definitive qual/quant nos 7/more Yovani Mejias [employer] Work Phone: Start: 10-12-2018 End: 10-12-2018 Protein total xcpt refractometry urine Yovani Orr Work Phone: Start: 10-12-2018 End: 10-12-2018 VOLUME MEASURED Yovani Orr Work Phone: H/O: liver recipient Liver repla vida by transplant Steve Farrari MBBS Work Phone: H/O: liver recipient Liver [...] renal transplant -donor kidney transplant recipient Steve Farrari MBBS Work Phone: History of renal transplant Kidney replaced by transplant Rebeca Gutierrez APRN-TRANSFORMER SHOP SUPERVISOR Work Phone: Plan of Treatment Date Care Activity Detail Author Start: 09-20-2029 Screening for malignant neoplasm of colon [facility] Start: 08-15-2025 Potassium [Moles/volume] in Serum or Plasma POTASSIUM [facility] Start: 07-04-2025 Potassium [Moles/volume] in Serum or Plasma POTASSIUM [facility] Start: 06-20-2025 Potassium [Moles/volume] in Serum or Plasma POTASSIUM [facility] Start: 06-16-2025 End: 06-16-2025 Patient encounter procedure [facility] Start: 06-13-2025 Potassium [Moles/volume] in Serum or Plasma POTASSIUM [facility] Start: 05-23-2025 Potassium [Moles/volume] in Serum or Plasma POTASSIUM [facility] Start: 03-28-2025 Potassium [Moles/volume] in Serum or Plasma POTASSIUM [facility] Start: 03-21-2025 Potassium [Moles/volume] in Serum or Plasma POTASSIUM [facility] Start: 02-28-2025 Potassium [Moles/volume] in Serum or Plasma POTASSIUM [facility] Start: 02-10-2025 Medicare Annual Wellness (AWV) Medicare Annual Wellness (AWV) [facility] Start: 01-23-2025 Potassium [Moles/volume] in Serum or Plasma POTASSIUM [facility] Start: 10-25-2024 End: 10-25-2024 Patient encounter procedure 10/25/2024 8:40 AM EST Office Visit [facility] [address] [place] [address] Zuly Bruno, BA [address] [place] [address] [facility] Start: 09-29-2024 Influenza vaccination Influenza Vaccine (#1) [facility] Comment on above: Postponed from 07/31/2024 (Patient Refus ed) Start: 09-07-2024 End: 09-07-2024 Telemedicine consultation with patient 09/07/2024 3:00 PM EDT Telemedicine Infectious Diseases Care [facility] [address] [place] [phone] Evan White DO [address] [place] [address] Infectious Diseases Care [facility] Start: 08-31-2024 Screening for malignant neoplasm of lung [facility] Start: 07-31-2024 Influenza vaccination INFLUENZA VACCINE (#1) [facility] Start: 06-17-2024 End: 06-17-2024 ambulatory [facility] Start: 06-17-2024 End: 06-17-2024 Patient encounter procedure [facility] Start: 03-22-2024 Fasting lipid profile LIPID SCREENING [facility] Start: 03-22-2024 Lipid panel [facility] Start: 02-26-2024 End: 02-26-2024 Patient encounter procedure 02/26/2024 9:30 AM EDT Office Visit [facility] [address] [place] [phone] Candie Almaguer MD [address] [place] [phone] [facility] Start: 02-11-2024 End: 02-11-2024 Patient encounter procedure 02/11/2024 10:30 AM EDT Office Visit [facility] [address] [place] [address] Zuly Bruno, BA [address] [place] [phone] [facility] Start: 02-09-2024 End: 02-09-2024 Telemedicine consultation with patient 02/09/2024 3:30 PM EDT Telemedicine Infectious Diseases Care [facility] [address] [place] [address] Hakeem Alamo MD [address] [place] [address] Infectious Diseases Care [facility] Start: 01-15-2024 End: 01-15-2024 ambulatory [facility] Start: 01-15-2024 End: 01-15-2024 Patient encounter procedure [facility] Start: 01-06-2024 End: 01-06-2026 Echocardiogram 2D complete Echocardiogram 2D complete Echocardiography Routine DARLENE (obstructive sleep apnea) Primary hypertension (CMS/HCC) Bilateral lower extremity edema Shortness of breath Expected: 01/06/2024 (Approximate), Expires: 01/06/2026 [facility] Work Phone: Comment on above: Expected: 01/06/2024 (Approximate), Expi res: 01/06/2026 Start: 01-06-2024 End: 01-06-2024 Patient encounter procedure 01/06/2024 9:00 AM EST Office Visit [facility] [address] [place] [phone] Zuly Bruno NP [address] [place] [address] [facility] Start: 12-08-2023 End: 09-07-2024 CT Chest WO contrast [facility] Work Phone: Start: 12-01-2023 COVID-19 VACCINE (2 - Moderna risk series) COVID-19 VACCINE (2 - Moderna risk series) [facility] Start: 09-23-2023 End: 09-23-2023 ambulatory [facility] Care [facility] Start: 09-23-2023 End: 09-23-2023 Telemedicine consultation with patient 09/23/2023 4:00 PM EDT Telemedicine Infectious Diseases Care [facility] [address] [place] [address] Hakeem Alamo MD [address] [place] [address] Infectious Diseases Care [facility] Start: 09-15-2023 End: 09-10-2024 ITRACONAZOLE LEVEL [facility] Start: 08-25-2023 End: 08-25-2024 ALLOSCREEN RECIPIENT (POST TX PRA) ALLOSCREEN RECIPIENT (POST TX PRA) Lab Routine Kidney replaced by transplant Aftercare following organ transplant Immunosuppressed status High risk medication use Other general symptoms and signs Abnormal blood chemistry Expected: 08/25/2023, Expires: 08/25/2024 [facility] Comment on above: Expected: 08/25/2023, Expires: Start: 07-31-2023 Influenza vaccination [facility] Start: 06-12-2023 End: 06-12-2023 Patient encounter procedure 06/12/2023 Office Visit Transplant Surgery Steve Munoz MBBS [address] [place] [address] [facility] Start: 03-11-2023 End: 03-11-2023 Telemedicine consultation with patient 03/11/2023 Telemedicine Urology Ryan Yepez MD [address] [place], [place] [phone] [facility] Start: 01-16-2023 End: 01-16-2023 Patient encounter procedure 01/16/2023 Office Visit Transplant Surgery [facility] Start: 10-31-2022 End: 10-31-2022 Patient encounter procedure 10/31/2022 Office Visit Transplant Surgery Steve Munoz MBBS [address] [place] [phone] [facility] Start: 09-10-2022 End: 09-10-2023 PSA screening PSA, SCREENING Lab Routine BPH with obstruction/lower urinary tract symptoms Encounter for screening for malignant neoplasm of prostate Expected: 09/10/2022 (Approximate), Expires: 09/10/2023 [facility] Comment on above: Expected: 09/10/2022 (Approximate), Expi res: 09/10/2023 Start: 08-11-2022 End: 08-11-2022 Patient encounter procedure 08/11/2022 Office Visit Urology Ryan Yepez MD [address] [place] [address] Urolog [facility] Start: 07-31-2022 Influenza vaccination [facility] Start: 07-07-2022 End: 07-07-2022 Patient encounter procedure 07/07/2022 Office Visit Urology Ryan Yepez MD [address] [facility] [address] [place] [address] Urolog Eye [facility] Start: 07-07-2022 End: 07-07-2023 FLUORO IMAGING FOR UROLOGY [facility] Comment on above: Expected: 07/07/2022, Expires: 3 1 Occurrences starti ng 07/07/2022 until 07/07/2022 Start: 06-27-2022 End: 06-27-2022 Patient encounter procedure 06/27/2022 Office Visit Urology Ryan Yepez MD [address] [facility] [address] [place] [address] [facility] Start: 06-27-2022 End: 06-27-2023 Basic metabolic 2000 panel - Serum or Plasma BASIC METABOLIC PANEL Lab Routine Other hydronephrosis Expected: 06/27/2022, Expires: 06/27/2023 [facility] Comment on above: Expected: 06/27/2022, Expires: 3 Start: 06-27-2022 End: 06-27-2022 Patient encounter procedure 06/27/2022 Appointment Computerized Tomography Scan Ryan Yepez MD [address] [facility] [address] [place] [address] Department of Radiology Start: 06-15-2022 End: 05-16-2023 CT Abdomen and Pelvis WO contrast CT ABDOMEN/PELVIS WITHOUT CONTRAST Imaging Routine FAYE (acute kidney injury) Expected: 06/15/2022 (Approximate), Expires: 05/16/2023 [facility] Work Phone: Comment on above: Expected: 06/15/2022 (Approximate), Expi res: 05/16/2023 Start: 06-12-2022 End: 06-12-2022 Patient encounter procedure 06/12/2022 Office Visit Transplant Surgery Steve Munoz MBBS [address] [place] [address] [facility] Start: 06-11-2022 End: 06-11-2023 BK VIRUS DNA QN, PCR, PLASMA BK VIRUS DNA QN, PCR, PLASMA Lab Routine Kidney replaced by transplant Liver replaced by transplant Abnormal blood chemistry Expected: 06/11/2022, Expires: 06/11/2023 [facility] Comment on above: Expected: 06/11/2022, Expires: Start: 06-04-2022 End: 06-04-2022 Patient encounter procedure 06/04/2022 Office Visit [facility] Radiology [facility] Start: 10-18-2021 End: 10-18-2021 Patient encounter procedure 10/18/2021 Office Visit Transplant Surgery Steve Munoz MBBS [address] [place] [address] [facility] Start: 07-31-2021 Influenza vaccination INFLUENZA VACCINE (#1) [facility] Start: 07-26-2021 End: 07-26-2021 Patient encounter procedure 07/26/2021 Office Visit Transplant Surgery [facility] Start: 2021 Prostate specific antigen measurement [facility] Start: 2021 Screening for malignant neoplasm of lung LUNG CANCER SCREENING [facility] Start: 2021 Zoster vaccine hzv live for subcutaneous use ZOSTER (SHINGLES) VACCINE (1 of 2) [facility] Start: 09-20-2020 Colonoscopy COLORECTAL CANCER SCREENING DISCUSSION [facility] Start: 09-20-2020 Screening for malignant neoplasm of colon [facility] Start: 07-31-2019 [facility] Start: 05-22-2019 Annual Wellness Visit (AWV) Annual Wellness Visit (AWV) [facility] Start: 04-18-2019 End: 10-19-2019 Ultrasonography of abdomen US ABDOMEN RUQ/LIVER/GB Routine Cirrhosis of liver without ascites, unspecified hepatic cirrhosis type Expected: 04/18/2019 (Approximate), Expires: 10/19/[address] [facility] Work Phone: Comment on above: Expected: 04/18/2019 (Approximate), Expi res: 10/19/2019 Start: 01-25-2019 End: 01-25-2019 Ambulatory 01/25/2019 Office Visit Gastroenterology Christin Elizabeth, ENTRY ENGINEER-TRANSFORMER SHOP SUPERVISOR [address] [place] [address] Division of Gastroenterology and Hepatology Gavin Start: 11-19-2018 End: 11-19-2018 Ambulatory 11/19/2018 Appointment [facility] Start: 11-19-2018 End: 11-19-2018 Ambulatory [facility] Start: 10-19-2018 End: 10-19-2018 Ambulatory Ultrasound Jakob Start: 10-12-2018 End: 10-12-2019 Hemoglobin A1c/Hemoglobin.total mass fraction (Bld) HEMOGLOBIN A1C Routine Alcoholic cirrhosis, unspecified whether ascites present Pre-transplant evaluation for liver transplant Expected: 10/12/2018, Expires: 10/12/[address] [facility] Work Phone: Comment on above: Expected: 10/12/2018, Expires: 9 Start: 10-12-2018 End: 10-12-2019 TYPE AND SCREEN - NOT FOR TRANSFUSION TYPE AND SCREEN - NOT FOR TRANSFUSION Routine Alcoholic cirrhosis, unspecified whether ascites present Pre-transplant evaluation for liver transplant Expected: 10/12/2018, Expires: 10/12/[address] [facility] Work Phone: Comment on above: Expected: 10/12/2018, Expires: 9 Start: 07-31-2018 Influenza vaccination INFLUENZA VACCINE (#1) [facility] Work Phone: Start: 2011 Fasting lipid profile LIPID SCREENING [facility] Work Phone: Start: 2011 Lipid screen Lipid screen [place] Start: 1990 DTaP/Tdap/Td vaccine (1 - Tdap) DTaP/Tdap/Td vaccine (1 - Tdap) [place] Start: 1990 Hepatitis B vaccination HEP B VACCINE (1 of 3 - 19+ 3-dose series) [facility] Start: 1990 Hepatitis B Vaccine (1 of 3 - Risk Recombivax 3-dose series) Hepatitis B Vaccine (1 of 3 - Risk Recombivax 3-dose series) [place] Start: 1990 Third diphtheria, tetanus and acellular pertussis (DTaP) vaccination [facility] Start: 1990 Zoster vaccine hzv live for subcutaneous use ZOSTER (SHINGLES) VACCINE (1 of 2) [facility] Start: 1990 [facility] Start: 1989 Tetanus vaccination TETANUS [facility] Start: 1986 HIV screen HIV screen [place] Start: 02-17-1984 HIV screening HIV SCREENING DISCUSSION [facility] Work Phone: Start: 1983 COVID-19 VACCINE (1) COVID-19 VACCINE (1) [facility] Start: 1982 DTaP/Tdap/Td vaccine (1 - Tdap) DTaP/Tdap/Td vaccine (1 - Tdap) [place] Start: 1977 Pneumococcal 0-64 years Vaccine (1 of 3 - PCV13) Pneumococcal 0-64 years Vaccine (1 of 3 - PCV13) [place] Start: 1977 PNEUMOCOCCAL VACCINE SERIES (1 - PCV) PNEUMOCOCCAL VACCINE SERIES (1 - PCV) [facility] Start: 1977 PNEUMOCOCCAL VACCINE SERIES (1 of 2 - PCV) PNEUMOCOCCAL VACCINE SERIES (1 of 2 - PCV) [facility] Start: 1977 [facility] Start: 02-17-1976 COVID-19 VACCINE (#1) COVID-19 VACCINE (#1) [facility] Start: 02-17-1976 [facility] Start: 1971 COVID-19 VACCINE (#1) COVID-19 VACCINE (#1) [facility] Start: 1971 Hepatitis B vaccination HEP B VACCINE (1 of 3 - 3-dose series) [facility] Start: 1971 Medicare Annual Wellness (AWV) Medicare Annual Wellness (AWV) [facility] Start: 1971 Screening for malignant neoplasm of colon [facility] Start: 1971 Tetanus vaccination [facility] BK VIRUS DNA QN, PCR , PLASMA BK VIRUS DNA QN, PCR, PLASMA Lab Routine Kidney replaced by transplant Liver replaced by transplant Abnormal blood chemistry 06/12/2022 3:38 PM EDT [facility] CALCULI, URINARY (KIDNEY STONE) CALCULI, URINARY (KIDNEY STONE) Fluids Routine 05/19/2022 8:16 AM EDT [facility] Work Phone: CANNABINOIDS, QUANT (URINE)THC CONFIRMATION CANNABINOIDS, QUANT (URINE)THC CONFIRMATION Routine Alcoholic cirrhosis, unspecified whether ascites present ESRD (end stage renal disease) on dialysis Pre-transplant evaluation for liver transplant 10/12/2018 12:57 PM [facility] Work Phone: End: 09-10-2024 CHEM 6 (LYTES, BUN CREA) [facility] EBV VCA IGG AB EBV VCA IGG AB R outine Alcoholic cirrhosis, unspecified whether ascites present ESRD (end stage renal disease) on dialysis Pre-transplant evaluation for liver transplant 10/12/2018 12:57 PM [facility] Work Phone: Fungus identified in Unspecified specimen by Culture [facility] HLA TYPING (SOLID ORGAN) [...] PM [facility] Work Phone: MR Abdomen WO and W contrast IV MRI ABDOMEN WITH AND WITHOUT CONTRAST Imaging Routine Liver lesion Ordered: 06/17/2024 [facility] Comment on above: Ordered: 06/17/2024 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 specific culture [facility] PLACEMENT NEPHROSTOM Y CATHETER PERCUTANEOUS W/ IMAGE GUIDANCE PLACEMENT NEPHROSTOMY CATHETER PERCUTANEOUS W/ IMAGE GUIDANCE Imaging Routine Hydronephrosis due to obstruction of ureteral orifice FAYE (acute kidney injury) 05/17/2022 11:08 AM EDT [facility] DC POST VOID RESIDUAL DC POST VO ID RESIDUAL DC - OFFICE PERFORMED Routine BPH with obstruction/lower urinary tract symptoms Ordered: 09/10/2022 [facility] Comment on above: Ordered: [...] [facility] Work Phone: End: 01-16-2024 Standard ECG ECG ECG Routine One Time for 1 Occurrences starting 01/16/2024 until 01/16/2024 [facility] Comment on above: One Time for 1 Occurrences starting 12/31 until 01/16/2024 End: 09-10-2024 TACROLIMUS LEVEL, TROUGH (PRE DRUG LEVEL) [facility] VARICELLA IGG AB (IM M STATUS) VARICELLA IGG AB (IMM STATUS) Routine Alcoholic cirrhosis, unspecified whether ascites present ESRD (end stage renal disease) on dialysis Pre-transplant evaluation for liver transplant 10/12/2018 12:57 PM EST [facility] Work Phone: Immunizations Immunization Date [...] Healthcare Payers Date Payer Category Payer Unknown [id number] 2019 Unknown [facility] [id number] 2019-Present [id number] 2018 Medicaid MEDICAID [facility] DEPT OF JOB xxxxxxxxxxxx 2018-Present [phone] [address] [place] [address] xxxxxxxxxxxx [id number] 2018 Medicaid MEDICAID MEDICAI D [id number] 2018-Present [address] [place] [address] [id number] .[id number] 2018 Medicaid [id number] [id number] .[id number] 2018 Medicare MEDICARE MEDICAR E PART A AND B xxxxxxxxxxx 2018-Present [phone] [address] [address] [place] [address] xxxxxxxxxxx [id number] .[id number] 2018 Medicare [id number] 2018 Medicare MEDICARE MEDICAR E A AND B [id number] 2018-Present [address] [place] [address] [id number] .[id number] 2018 Medicare [id number]. 1.13.172.2.7.3 .320832.315 1971 Unknown [id number] 2.16.840.1.843345.3.579.2.173 1971 Unknown [id number] 2.16.840.1.853882.3.579.2.173 1971 Unknown [id number] 2.16.840.1.998544.3.579.2.173 1971 Unknown [id number] 2.16.840.1.564423.3.579.2.173 1971 Unknown [id number] 2.16.840.1.422993.3.579.2.173 1971 Unknown [id number] 2.16.840.1.471964.3.579.2.173 1971 Unknown [id number] 2.16.840.1.575509.3.579.2.173 1971 Unknown [id number] 2.16.840.1.740797.3.579.2.173 1971 Unknown [id number] 2.16.840.1.498846.3.579.2.647 1971 Unknown [id number] 2.16.840.1.785245.3.579.2.593 1971 Unknown [id number] 2.16.840.1.747677.3.579.2.593 1971 Unknown [id number] 2.16.840.1.054117.3.579.2.593 1971 Unknown [id number] 2.16.840.1.690320.3.579.2.593 1971 Unknown [id number] 2.16.840.1.773526.3.579.2.593 1971 Unknown [id number] 2.16.840.1.345474.3.579.2.593 1971 Unknown [id number] 2.16.840.1.776861.3.579.2.593 1971 Unknown [id number] 2.16.840.1.456483.3.579.2.593 1971 Unknown [id number] 2.16.840.1.232606.3.579.2.593 1971 Unknown [id number] 2.16.840.1.174140.3.579.2.593 1971 Unknown [id number] 2.16.840.1.962344.3.579.2.593 1971 Unknown [id number] 2.16.840.1.175228.3.579.2.593 1971 Unknown [id number] 2.16.840.1.900643.3.579.2.593 1971 Unknown [id number] 2.16.840.1.825272.3.579.2.593 1971 Unknown [id number] 2.16.840.1.515665.3.579.2.593 1971 Unknown [id number] 2.16.840.1.920953.3.579.2.125 9 1971 Unknown [id number] 2.16.840.1.258188.3.579.2.125 9 1971 Unknown [id number] 2.16.840.1.506116.3.579.2.125 9 1971 Unknown [id number] 2.16.840.1.850420.3.579.2.125 9 1971 Unknown [id number] 2.16.840.1.689126.3.579.2.125 9 1971 Unknown [id number] 2.16.840.1.758908.3.579.2.125 9 1971 Unknown [id number] 2.16.840.1.244061.3.579.2.125 9 1971 Unknown [id number] 2.16.840.1.929348.3.579.2.125 9 1971 Unknown [id number] 2.16.840.1.871212.3.579.2.125 9 1971 Unknown [id number] 2.16.840.1.066056.3.579.2.125 9 1971 Unknown [id number] 2.16.840.1.456100.3.579.2.125 9 1971 Unknown [id number] 2.16.840.1.674134.3.579.2.125 9 1971 Unknown [id number] 2.16.840.1.052133.3.579.2.125 9 1971 Unknown [id number] 2.16.840.1.946378.3.579.2.125 9 1971 Unknown [id number] 2.16.840.1.190704.3.579.2.125 9 1971 Unknown [id number] 2.16.840.1.863430.3.579.2.594 1971 Unknown [id number] 2.16.840.1.275859.3.579.2.594 1971 Unknown [id number] 2.16.840.1.088104.3.579.2.594 1971 Unknown [id number] 2.16.840.1.006734.3.579.2.594 1971 Unknown [id number] 2.16.840.1.636206.3.579.2.594 1971 Unknown [id number] 2.16.840.1.675969.3.579.2.594 1971 Unknown [id number] 2.16.840.1.148871.3.579.2.594 1971 Unknown [id number] 2.16.840.1.560364.3.579.2.594 1971 Unknown [id number] 2.16.840.1.312473.3.579.2.594 1971 Unknown [id number] 2.16.840.1.844892.3.579.2.594 1971 Unknown [id number] 2.16.840.1.615241.3.579.2.594 1971 Unknown [id number] 2.16840.1.515197.3.579.2.727 1971 Unknown [id number] 2.16840.1.021210.3.579.2.727 1959 Medicaid [id number] 1959 Medicare [id number] Social History Date Type Detail Facility Start: 10-19-2018 End: 11-03-2023 Tobacco smoking status WVIS Former smoker [facility] Start: 07-19-1988 End: 05-14-2018 History of tobacco use Current smoker [facility] Work Phone: Start: 07-19-1988 End: 05-14-2018 History of tobacco use Cigarette Smoker [facility] Work Phone: Start: 10-19-2018 End: 10-27-2023 Cigarettes smoked current (pack per day) - Reported [facility] End: 07-19-1994 History of tobacco use Chews Tobacco [facility] Work Phone: Start: 1971 Sex Assigned At Not on file [facility] Work Phone: Start: 11-03-2018 Alcohol intake Current non-drinker of alcohol (finding) [place] Start: 06-22-2018 Alcohol Comment Hx of alcoholism [place] Start: 11-03-2018 End: 10-27-2023 Alcohol intake No [facility] Start: 07-19-2018 Tobacco use and exposure Former user [facility] Start: 09-06-2020 End: 08-23-2024 Alcohol intake Ex-drinker (finding) [facility] Start: 07-19-2018 Alcohol Comment stopped 05/14/2018 [facility] Start: 05-05-2022 End: 01-16-2023 Exposure to SARS-CoV-2 (event) Not sure [facility] Start: 07-07-2018 Gender identity Identifies as male gender (finding) [facility] Start: 01-16-2022 Sexual orientation Heterosexual (finding) [facility] Start: 11-03-2023 Tobacco use and exposure Smokeless [...] Never smoked tobacco (finding) [facility] Do you belong to any clubs or organizations such as jehovah's witness groups, unions, fraternal or athletic groups, or school groups? Yes [facility] Are you now , , , , never or living with a partner? [facility] Medical Equipment Procedure Code Equipment Code Equipment Original Text Equipment Identifier Dates [id number] Start: 05-23-2020 [id number] Start: 04-12-2020 [id number], [id number] FDA Start: 05-17-2022 Comment on above: Description: Implant time-out completed by intra-procedural staff including this RN, marketing technologist, and performing physician. The following was completed. [...] 09-08-2024 Functional Status N/A [facility] Clinical Notes 06-14-2021 to 09-08-2024 Starla Edwards [...] urethra. Follow these instructions at home: Take pcbg-qio-jgutjde and prescription medicines only as told by [...] provider. Document Revised: 06/04/2022 Document Reviewed: 06/04/2022 [employer] Patient Education 2023 [employer]. 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 Screening PSA (prostate specific antigen) (Z12.5: Encounter for screening for malignant neoplasm of prostate) No PSA records on file -Will discuss with patient at his follow up Ordered: E&M of New Patient Moderate 45-59 Min 73606 3. History of kidney transplant (Z94.0: Kidney transplant status) 08/29/24 - BUN 18, Cre 1.3, GFR 58 Pt had liver and kidney transplant in 2020 and follows yearly with [facility]. Ordered: E&M of New Patient Moderate 45-59 Min 97187 Orders: tamsulosin, 0.4 mg = 1 cap(s), Oral, BID, X 30 day(s), # 60 cap(s), Refills(s) 11, Pharmacy: [facility], 170, cm, 09/08/24 14:00:00 EDT, Height/Length Dosing, 90, kg, 09/08/24 14:00:00 EDT, Weight Dosing 36786 Measure Post Void residual urine and/or bladder capacity by US- non-imaging Urnls Dip Stick Auto w/o Microscopy POC 30258 Follow-up With When Contact Information Jaguar CASTILLO, [...] Urine Dipstick: Negative (more content not included)... [facility] Comment on above: Result Comment: Elec [...] Follow these instructions at home: ? Take gmso-nve-ianmbvw and prescription medicines only as told by [...] develop side effec (more content not included)... [facility] 09-05-2024 History of Present illness Narrative [facility]: Call Information: Date and Time of Contact: 09/05/2024 3:24 PM Method of Contact: By Phone Contact Type: Prescriptions Contactor: Patient Contactee: [facility] Shipping/Pickup: Medicare B Refill?: No Medication Name: Mycophenolate, prograf Delivery Method: Ship Delivery Location: Home Signature Required: No Receive/Pickup Date: 09/06/2024 Shipping Address: [address] [place] [address] [address] Contact Info: Specialty ([place]) [phone] Jakob [phone] [facility] [phone] [facility] [phone] Bedside Delivery ([facility]) [phone] documented in this encounter [facility] 06-23-2024 History of Present illness Narrative [facility]RE[facility]ED: Call Information: Date and Time of Contact: 06/23/2024 8:52 AM Method of Contact: By Phone Contact Type: Prescriptions Contactor: [facility] Contactee: Patient Shipping/Pickup: Medicare B Refill?: No Medication Name: Prograf 0.2mg Delivery Method: Ship Delivery Location: Home Signature Required: No Receive/Pickup Date: 06/29/2024 Shipping Address: [address] [place] [address] [address] Contact Info: Specialty ([place]) [phone] Jakob [phone] [facility] [phone] [facility] [phone] Bedside Delivery ([facility]) [phone] documented in this encounter [facility] 06-17-2024 History of Present illness Narrative -Referring Provider for today's consult: Self, Self -Primary Care Provider: Zuly Bruno History of Present Illness George Styles is a 54 y.o. male who presents to the [facility] today for follow-up [...] Surgeon: Jyoti Bryant MD, PhD; Location: [facility] MAIN OR PLACEMENT NEPHROSTOMY CATHETER PERCUTANEOUS W/ IMAGE GUIDANCE 05/17/2022 Surgeon: Enzo Heart DO; Location: [facility] INTERVENTIONAL RADIOLOGY (VIR) LIVER TRANSPLANT, ORTHOTOPIC N/A 04/12/2020 Laterality: N/A; Surgeon: LU Palma; Location: [facility] SAME DAY SURGERY MAIN OR KIDNEY TRANSPLANT W/O [place]BE NEPHRECTOMY N/A 04/12/2020 Laterality: N/A; Surgeon: LU [...] 0.2 06/13/2024 Explant Pathology Pathologic Diagnosis A. [place] liver, orthotopic liver transplant resection (1458 gram): [...] up in 1 year. Daisha Max DO Financial Report Service Sales Agent Gastroenterology, Hepatology and Nutrition [facility] Pager: [phone] Images from the original note were not included. 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 Analysis Consultant: Anayeli Burt Date of Liver Transplant: 04/13/2020 (Kidney), 04/13/2020 (Liver) 4 years, 2 months post Liver/Kidney Transplant Primary Disease: Hypertensive Nephrosclerosis Transplant All Around Gear Machine Operator: Erma Roe/ Daisha Max Primary [...] LAB AND PHARMACY: None Specified [id number] [place] [id number] - [address] [facility] [address] [facility] [address] [facility] [address] [facility], [address] [facility] [address] [id number] [place] [address] [address] [facility] [address] [facility] [address] [facility] [address], [address] [facility] [address] ROS and SCREEN: Chest Pain: negative Cough: [...] year: no Do you follow with a Mask Former? yes Do you have a Primary Care [...] ADDRESS WITH PHYSICIAN: documented in this encounter [facility] 06-17-2024 Instructions Ashlee Fair RN - 06/17/2024 10:00 AM EDT - No medication changes from a liver standpoint - A MRI Abdomen has been ordered today. Please call central scheduling at [phone] to schedule or take paper copy to your local hospital - Return to clinic 06/16/2025 TRANSPLANT HEPATOLOGY 3, [facility] as scheduled documented in this encounter [facility] 06-17-2024 History of Present illness Narrative Images from the original note were not included. George Styles is a 54 y.o. 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 No longer follows with a local hog pusher. History of Present Illness: Since George was [...] and lab results. Rebeca Gutierrez MSN, RN, ENTRY ENGINEER-BC, CCTN Certified Nurse Practitioner [facility] [address] [facility] [address] documented in this encounter [facility] 06-17-2024 Instructions JEANNA Hess - 06/17/2024 9:30 AM EDT Tacrolimus - increase to 0.2 mg packet three time per day; goal 3 to 5 ng/dL ; when the itraconazole stops 09/03/2024, reduce to 0.5 mg twice daily. Once your tacrolimus level is 3-5 ng/dL, you may reduce labs to every other week. documented in this encounter [facility] 05-26-2024 History of Present illness Narrative [facility]: Call Information: Date and Time of Contact: 05/26/2024 4:35 PM Method of Contact: By Phone Contact Type: Prescriptions Contactor: [facility] Contactee: Patient Contact Outcome: Left message and Follow-up Contact Info: Specialty ([place]) [phone] Jakob [phone] [facility] [phone] Raheem [phone] Bedside Delivery ([facility]) [phone] [facility]REACH [facility]ANCED: Call Information: Date and Time of Contact: 05/30/2024 4:52 PM Method of Contact: By Phone Contact Type: Prescriptions Contactor: Patient Contactee: [facility] Shipping/Pickup: Medicare B Refill?: No Medication Name: Myco sod 360mg, Prograf 0.2mg Delivery Method: Ship Delivery Location: Home Signature Required: No Receive/Pickup Date: 06/06/2024 Shipping Address: [address] [place] [address] Contact Info: Specialty ([place]) [phone] [facility] [phone] [facility] [phone] Raheem [phone] Bedside Delivery ([facility]) [phone] documented in this encounter [facility] 05-13-2024 Note [place] [facility] Subjective George Styles is a [...] , Rfl: t (more content not included)... [facility] 03-24-2024 History of Present illness Narrative [facility] OUTREACH ADVANCED: Call Information: Date and Time of Contact: 03/24/2024 4:14 PM Method of Contact: By Phone Contact Type: Prescriptions Contactor: [facility] Contactee: Patient Contact Outcome: Left message Shipping/Pickup: Medication Name: Prograf 0.2mg pack Contact Info: Specialty ([place]) [phone] [facility] [phone] [facility] [phone] Raheem [phone] Bedside Delivery ([facility]) [phone] [facility]REACH ADVANCED: Call Information: Date and Time of Contact: 03/28/2024 3:58 PM Method of Contact: By Phone Contact Type: Prescriptions Contactor: [facility] Contactee: Patient Contact Outcome: Left message and Call back later Shipping/Pickup: Medication Name: Mycophenolate, prograf Contact Info: Specialty ([place]) [phone] [facility] [phone] [facility] [phone] Raheem [phone] Bedside Delivery ([facility]) [phone] [facility] RX OUTREACH ADVANCED: Call Information: Method of Contact: By Phone Contact Type: Prescriptions Contactor: Patient Contactee: [facility] Shipping/Pickup: Medicare B Refill?: No Medication Name: Mycopheolate 360mg and Prograf Delivery Method: Ship Delivery Location: Home Signature Required: No Receive/Pickup Date: 04/04/2024 Shipping Address: [address] [place] [address] [address] Contact Info: Specialty ([place]) [phone] [facility] [phone] [facility] [phone] Raheem [phone] Bedside Delivery ([facility]) [phone] documented in this encounter [facility] 03-24-2024 History of Present illness Narrative [facility] OUTREACH ADVANCED: Call Information: Date and Time of Contact: 03/24/2024 4:14 PM Method of Contact: By Phone Contact Type: Prescriptions Contactor: [facility] Contactee: Patient Contact Outcome: Left message Shipping/Pickup: Medication Name: Prograf 0.2mg pack Contact Info: Specialty ([place]) [phone] [facility] [phone] [facility] [phone] Raheem [phone] Bedside Delivery ([facility]) [phone] [facility] RX OUTREACH ADVANCED: Call Information: Date and Time of Contact: 03/28/2024 3:58 PM Method of Contact: By Phone Contact Type: Prescriptions Contactor: [facility] Contactee: Patient Contact Outcome: Left message and Call back later Shipping/Pickup: Medication Name: Mycophenolate, prograf Contact Info: Specialty ([place]) [phone] [facility] [phone] [facility] [phone] [facility] [phone] Bedside Delivery ([facility]) [phone] [facility] OP RX OUTREACH ADVANCED: Call Information: Method of Contact: By Phone Contact Type: Prescriptions Contactor: Patient Contactee: [facility] Shipping/Pickup: Medicare B Refill?: No Medication Name: Mycopheolate 360mg and Prograf Delivery Method: Ship Delivery Location: Home Signature Required: No Receive/Pickup Date: 04/04/2024 Shipping Address: [address] [place] [address] [address] Contact Info: Specialty ([place]) [phone] [facility] [phone] [facility] [phone] [facility] [phone] Bedside Delivery ([facility]) [phone] [facility] RX OUTREACH ADVANCED: Pre-Verification/Specialty Assessment/Disease [...] Within normal limits Contact Info: Specialty ([place]) [phone] Jakob [phone] [facility] [phone] Raheem [phone] Bedside Delivery ([facility]) [phone] documented in this encounter [facility] 03-02-2024 History of Present illness [...] del of broth Contact Info: Specialty ([place]) [phone] Jakob [phone] [facility] [phone] Raheem [phone] Bedside Delivery ([facility]) [phone] [facility] RX OUTREACH ADVANCED: Call Information: Date and Time of Contact: 03/02/2024 3:49 PM Method of Contact: By Phone Contact Type: Prescriptions Contactor: [facility] Contactee: Patient Contact Outcome: Left message and Follow-up Shipping/Pickup: Medication Name: Myco 360mg and Prograf 0.2mg Contact Info: Specialty ([place]) [phone] Jakob [phone] [facility] [phone] Raheem [phone] Bedside Delivery ([facility]) [phone] [facility] RX OUTREACH ADVANCED: Call Information: Date and Time of Contact: 03/02/2024 4:08 PM Method of Contact: By Phone Contact Type: Prescriptions Contactor: [facility] Contactee: Patient Shipping/Pickup: Medicare B Refill?: No Medication Name: Myco 360 / prograf 0.2 Delivery Method: Ship Delivery Location: Home Signature Required: No Receive/Pickup Date: 03/03/2024 Shipping Address: [address] [place] [address] [address] Contact Info: Specialty ([place]) [phone] [facility] [phone] [facility] [phone] Raheem [phone] Bedside Delivery ([facility]) [phone] documented in this encounter [facility] 02-26-2024 History of Present illness Narrative [...] presents to the HF Clinic at the [facility] on 02/26/2024 for initial evaluation [...] Surgeon: Jyoti Bryant MD, PhD; Location: [facility] MAIN OR PLACEMENT NEPHROSTOMY CATHETER PERCUTANEOUS W/ IMAGE GUIDANCE 05/17/2022 Surgeon: Enzo Heart DO; Location: [facility] INTERVENTIONAL RADIOLOGY (VIR) LIVER TRANSPLANT, ORTHOTOPIC N/A 04/12/2020 Laterality: N/A; Surgeon: LU Palma; Location: [facility] SAME DAY SURGERY MAIN OR KIDNEY TRANSPLANT W/O [place] TRIBE NEPHRECTOMY N/A 04/12/2020 Laterality: N/A; Surgeon: LU [...] qd Antithrombotic: no Statin: no ICD: NA EQUIPMENT WASHER: NA CV Test results: ECHOCARDIOGRAM 01/18/2024 (Final) Interpretation Summary Left Ventricle: Chamber size is normal. Increased wall thickness. Concentric hypertrophy. Normal global systolic function. Regional wall motion is normal. Ejection fraction is normal (55 - 60%). Right Ventricle: Chamber size is normal. Systolic function is low normal. No hemodynamically significnat valve disease. Moderate pericardial effusion. There is no evidence of tamponade. [facility] (01/20/24) Hemodynamic Summary: Baseline Hemodynamics Systemic [...] will be BP control. Candie Almaguer M.D. web mobile designer Advanced Heart Failure Program Division of Cardiovascular Medicine [facility] [email or web address] [phone] fax [phone] documented in this encounter [facility] 02-26-2024 Instructions Marsha Mckeon RN - 02/26/2024 9:30 AM EDT The following instructions were given today: Labs today Follow up with Dr. Almaguer as needed. Your after visit summary (AVS) is viewable in [facility] My Chart. Call RN if you have cardiac questions/concerns M-F 8 to 4:30 ; office # [phone], option 6, then option 2. Guidelines for home management: 1. Continue to monitor weight first thing each morning. 2. Report to the CHF CLINIC ([phone]) any significant weight change. Remember that weight [...] to have labs/tests run outside of the [facility] and you do not hear from us 1-2 days after they are performed, you must call us to ensure we received the results. Office fax # [phone]. No news does not necessarily mean that your tests are normal, it could mean we did not get the results. For questions/updates: please provide your name with spelling, date of and question or update All calls are prioritized and responses researched, if possible, prior to calls being returned. Call Scheduling for any appointment/procedure verification or changes [phone], option 7 or [facility] Heart Schedulers at [phone], option 1. documented in this encounter [facility] 01-23-2024 Nurse Note Jakob [...] to transport home on home oxygen supply. [facility] 01-23-2024 Miscellaneous Notes Jakob [...] Pain): verbalization of pain descriptors George Styles ([id number]) PRE OPERATIVE DIAGNOSIS High output congestive heart failure [I50.83] POST OPERATIVE DIAGNOSIS Post-Op Diagnosis Codes: * High output congestive heart failure [I50.83] PROCEDURE PERFORMED Procedure(s) (LRB): LIGATION ANGIOACCESS AVF (Left) Resection of large aneurysmic vein PRIMARY CLOSURE Yes INTRAOPERATIVE FINDINGS No significant abnormalities SURGEON Surgeons and Role: * Jyoti Bryant MD, PhD - Primary ANESTHESIOLOGIST Anesthesiologist: Celena Tiwari MD; Kehinde Gutierrez MD MEMBER OF THE LEGISLATIVE ASSEMBLY: Raheem Jasso APRN-MEMBER OF THE LEGISLATIVE ASSEMBLY Delicatessen Department Manager Assisting: Mini Khan MD SURGICAL STAFF Cnc Mill Programmer: Zoila Lawrence RN Relief Cnc Mill Programmer: Marimar Saravia RN Relief Scrub: Briseyda Self [...] patient breathing easily. Report received from surgical asst and report received from anesthesiology. Pt arrived [...] block. SURGEON(S): Jyoti Bryant MD, PHD ROUTE SALES MANAGER: Mynor Fall MD ESTIMATED BLOOD LOSS: [...] Jyoti Bryant MD, PHD ATTENDING SHANNON/Constanza JOB: [id number] DOC: [id number] Patient has been asleep this shift. He [...] overnight coverage, Jasper Gastelum MD, via pager #[phone] Pt- George Styles. Sarah 1082. TM1. Was wondering if he can have his Melatonin order increased to 6mg. Per pt, he usually takes 8mg at home. -SAMI Duffy #[phone] Tati Charles RN Internal Medicine Daily Progress Note Patient: George Styles, 1970, [id number] Physician: Arelis Mera MD, PGY3, Pager #[phone], TM1 service Assessment/Plan: George Styles is a [...] amlodipine 5mg CAD: non-obstructive CAD on [facility] 2018. - continue home aspirin [...] Mera MD Mr. Styles was admitted to [address] [place] [address]. On admission to [facility], from outside facility a dual RN initial assessment of skin condition was performed by Izzy Gutierrez RN and Leroy Singleton RN. Skin Assessment: Skin within defined limits:Yes Jose Score: 20 Wound Vision Vessel Slag Worker images obtained: No LDA Added: No Based [...] when available. documented in this encounter [facility] 01-23-2024 Nurse Note Home Oxygen [...] 4L of oxygen is also required.) [facility] 01-23-2024 History of Present illness [...] Daily Kelvin Pacheco MD, MBBS professor of religious studies Transplant nephrology Surgery Post-Op Check Note [...] monitor Leonel Harris DO General Surgery Pager [phone] CM went to bedside to talk with patient. Patient states he has home oxygen through [employer]. He uses 2.5 LNC around the clock. Patient states his brother will bring a tank for discharge. Anticipate patient will discharge tomorrow AM. Brother updated. Girish Oro RN, BSN Clinical Hat Body Inspector Please note that I am a float child welfare caseworker and may not cover the same service every day. Please call the main Case Management office at [phone] for up-to-date coverage. Verified patients identity using [...] Daily Progress Note Patient: George Styles, 1970, [id number] Physician: Yury Ozuna MD, PGY1, Pager #[phone], TM1 service Assessment/Plan: George Styles is a [...] by transplant surgery on 01/22 (NPO at md, updated type & screen) S/p Liver-Kidney Transplant [...] amlodipine 5mg CAD: non-obstructive CAD on [facility] 2018. - continue home aspirin [...] with the Nutrition plan outlined in the Pool Servicer s note. DVT prophylaxis with lovenox Diet [...] note. Kelvin Pacheco MD, MBBS professor of religious studies Transplant nephrology Patient seen and examined [...] AC Kelvin Pacheco MD, MBBS professor of religious studies Transplant nephrology Images from the original note were not included. Internal Medicine Daily Progress Note Patient: George Styles, 1970, [id number] Physician: Yury Ozuna MD, PGY1, Pager #[phone], OY4 service Assessment/Plan: George Styles is a 53 [...] amlodipine 5mg CAD: non-obstructive CAD on [facility] 2018. - continue home aspirin [...] with the Nutrition plan outlined in the Pool Servicer s note. DVT prophylaxis with lovenox Diet [...] new concerns this morning. Objective: Vitals: 01/20/24 08 BP: 140/66 Pulse: 54 Resp: 14 Temp: [...] Refills: 0 Provider: Zuly Bruno NP [facility] [place] [place] Other Comments: Patient reported his Last Home Dose of mycophenolate and tacrolimus was on 01/15/24 at 0700. Medications that need removed from Outside Medication Reconciliation list: Please remove all medications. Please feel free to contact me with any further questions. Name: Heidy Chatman Phone #: [phone] Date/Time: 01/19/2024 12:08 PM Time Spent: 15 minutes Associated attestation - Fidelina Alarcon RPH - 01/19/2024 12:41 PM EST Department of Pharmacy Admission Medication Reconciliation Note Patient: George Styles Room/Bed: 1082/A I have reviewed the home medication list with the Machine Plaster Mixer. The home medication list status is: complete. All changes to the home medication list have been updated in [facility]. Updated INDUSTRIAL ROOF PLUMBER Med List: Prior to Admission Medications Prescriptions [...] with any further questions. Name: Fidelina Angel Alarcon, [facility] Phone #: [phone] Date/Time: 01/19/2024 12:41 PM Internal Medicine Daily Progress Note Patient: George Styles, 1970, [id number] Physician: Yury Ozuna MD, PGY1, Pager #[phone], BN1 service Assessment/Plan: Acute Hypoxic Respiratory Insufficiency GARCIA, [...] with the Nutrition plan outlined in the Pool Servicer s note. DVT prophylaxis with lovenox Diet [...] Daily Kelvin Pacheco MD, MBBS professor of religious studies Transplant nephrology Internal Medicine Daily Progress Note Patient: George Styles, 1970, [id number] Physician: Yury Ozuna MD, PGY1, Pager #[phone], TM0 service Assessment/Plan: Updates: - continued diuresis [...] with the Nutrition plan outlined in the Pool Servicer s note. DVT prophylaxis with lovenox Diet [...] Ptt/Pt/Inr: 30.0/14.5/1.1 (01/18 315) Associated attestation - eKlvin Pacheco MD, MBBS - 01/18/2024 4:20 PM EST Patient seen and examined at bedside today during multidisciplinary rounds with medicine residents and pharmacy, charts reviewed, laboratory parameters reviewed. Agree with plan of care as mentioned in resident note. Kelvin Pacheco MD, MBBS professor of religious studies Transplant nephrology Pt known to tubing assembler from previous admissions. Provided emotional and spiritual support. Patient shared about: family support, medical course Development Geologist provided: - Supportive presence - Active listening - Validation of feelings/emotions Patient encouraged to request a tubing assembler as needed. Chaplains are available in-house 24 hours a day and 7 days a week. For urgent matters in [facility], please page [phone]. If the request is not urgent, please enter a consult. Consults are responded to within 24 hours. Senior Staff Development Geologist Angie Singh Mdiv, [facility] Kirk [phone] [email or web address] On-call : call or contact centre team leader Raheem: 22/06 Pager ,[facility], and Brock Hernandez Pager [phone] 01/18/24 1342 Clinical Encounter Type Visited With Patient Visit Type Introduction Pastoral Time Spent 15 min Referral Other (See Comment) (rounding) Spiritual Assessment Emotional Observation Coping well;Anxiety Hope Observation Specific hope focus Support Observation By Family Interventions Provided Active listening;Supportive presence Facilitated Verbalization of feelings;Identifying support system;Identifying Sources of spiritual well-being Explored Expectations;Treatment decisions Syrup Mixer Helper Education Syrup Mixer Helper Service Available Yes Educated Patient Outcomes Patient [...] any potential drug interaction. Name: Fidelina Alarcon MOJGAN Phone #: [phone] Date/Time: 01/18/2024 9:56 AM Discharge Planning Patient [...] Yes Name and Contact information: Gian Styles ([phone]) Would you like to add additional adult [...] oxygen?: Yes Oxygen Provider and Contact : Agradis Liter-Flow?: 20/01- Order for oxygen use?: unknown [...] patient on Anticoagulation? : No [id number] - [place] [address] - [address] [place] [id number] Mining Engineer Does the patient or graphic art sales representative express financial concerns? : No [...] Plan 1. Identified self and role as Hat Body Inspector. 2. Confirmed and updated demographics and treatment team. 3. Hat Body Inspector will continue to follow with medical team for any other additional discharge needs. Kasandra DON RN [facility] [phone] *Please note I am float and work Thursday and Thursday every other week. Please call [phone] for assist in my absence. Internal Medicine Daily Progress Note Patient: George Styles, 1970, [id number] Physician: Yury Oznua MD, PGY1, Pager #[phone], TM1 service Assessment/Plan: Updates: - continue diuresis [...] amlodipine 5mg CAD: non-obstructive CAD on [facility] 2018. - continue home aspirin [...] ordered 2D echo. Kevin Prince MD, FASN Financial Report Service Sales Agent of Clinical Medicine [facility] documented in this encounter [facility] 01-23-2024 Plan of care [...] Symptoms (Acute Pain): verbalization of pain descriptors [facility] 01-22-2024 Hospital Discharge instructions [...] your doctor for further instructions. Please call [phone], Option 1 or [phone] to schedule your appointment with the Heart Failure Clinic. Arelis Mera MD - 01/22/2024 3:08 PM EST You can change your dressing 48 hours from the procedure The following attachments cannot be sent through Care Everywhere.Heart Failure: Avoiding Triggers (Finnish)Heart Failure: Limiting Sodium (Finnish)Pain and Pain Control ([facility]) (Finnish)documented in this encounter [facility] 01-22-2024 Surgery Postoperative evaluation and management note George Feliz Jensen ([id number]) PRE OPERATIVE DIAGNOSIS High output congestive heart failure [I50.83] POST OPERATIVE DIAGNOSIS Post-Op Diagnosis Codes: * High output congestive heart failure [I50.83] PROCEDURE PERFORMED Procedure(s) (LRB): LIGATION ANGIOACCESS AVF (Left) Resection of large aneurysmic vein PRIMARY CLOSURE Yes INTRAOPERATIVE FINDINGS No significant abnormalities SURGEON Surgeons and Role: * Jyoti Bryant MD, PhD - Primary ANESTHESIOLOGIST Anesthesiologist: Celena Tiwari MD; Kehinde Gutierrez MD MEMBER OF THE LEGISLATIVE ASSEMBLY: Raheem Jasso APRN-MEMBER OF THE LEGISLATIVE ASSEMBLY Delicatessen Department Manager Assisting: Mini Khan MD SURGICAL STAFF Cnc Mill Programmer: Zoila Lawrence RN Relief Cnc Mill Programmer: Marimar Saravia RN Relief Scrub: Briseyda Self Scrub Person: Cinda Mai RN Resident Assisting: Leonel Harris DO Fellow: Miki Mcgowan MD, MBBS COMPLICATIONS None ESTIMATED BLOOD LOSS Minimal SPECIMENS No specimen sent * No specimens in log * Jyoti Bryant MD, PhD January 22, 2024 1:34 PM [facility] Work Phone: 01-22-2024 Nurse Note Arrived to PACU assisted by anesthesiology. Connected to monitors. Turned side to side, OR linens removed, repositioned. Airway patent, patient breathing easily. Report received from surgical asst and report received from anesthesiology. Pt arrived awake. VSS. Sats slightly low. Pulm rehab used. Sats currently 3lpm @ 93%. Pt states he uses CPAP nocturnally. A&Ox4. Nerve block left arm, elevated. [facility] 01-22-2024 Surgery Postoperative evaluation and management [...] block. SURGEON(S): Jyoti Bryant MD, PHD ROUTE SALES MANAGER: Mynor Fall MD ESTIMATED BLOOD LOSS: [...] Jyoti Bryant MD, PHD ATTENDING AR/Constanza JOB: [id number] DOC: [id number] [facility] 01-22-2024 Plan of care note Patient [...] Of Care Reviewed With: patient [facility] 01-20-2024 Consult note Associated Order (s): IP CONSULT TO SURGERY - TRANSPLANT (RENAL) Images from the original note were not included. TRANSPLANT SURGERY CONSULT NOTE: Consult: 01/20/2024, 4:03 PM Interior Design Director: Starla Morris MD Reason for Consult: Requesting Dr Carson Bryant for AVF revision/closure given new onset high output heart failure George Styles is a 53 y.o. male CURRENT HOSPITALIZATION LOS: Admit Date: 01/16/2024 [facility] Hospital LOS: 4 days George [...] DAY SURGERY MAIN OR KIDNEY TRANSPLANT W/O [place] TRIBE NEPHRECTOMY N/A 04/12/2020 Laterality: N/A; Surgeon: LU [...] seen and staffed with Dr. Mcgowan fellow recreation center director Thank you, Starla Morris MD Associated attestation - Jyoti Bryant MD, PhD - 01/22/2024 10:54 AM EST IRomaine Bryant MD, PhD, have independently seen and examined the patient, reviewed the labs, discussed the patient with the fellow/resident and agree with the note. [facility] Work Phone: 01-20-2024 Consult note Associated Order (s): IP CONSULT TO SURGERY - TRANSPLANT (RENAL) Images from the original note were not included. TRANSPLANT SURGERY CONSULT NOTE: Consult: 01/20/2024, 4:03 PM Interior Design Director: Starla Morris MD Reason for Consult: Requesting Dr Carson Bryant for AVF revision/closure given new onset high output heart failure George Styles is a 53 y.o. male CURRENT HOSPITALIZATION LOS: Admit Date: 01/16/2024 [facility] Hospital LOS: 4 days George [...] DAY SURGERY MAIN OR KIDNEY TRANSPLANT W/O [place] TRIBE NEPHRECTOMY N/A 04/12/2020 Laterality: N/A; Surgeon: LU [...] seen and staffed with Dr. Mcgowan fellow recreation center director Thank you, Starla Morris MD Associated attestation [...] Hgb 12.1, Plts 155. SARAI with Dr. Sobotka on 01/16/2023. IS at the time was [...] DAY SURGERY MAIN OR KIDNEY TRANSPLANT W/O [place] TRIBE NEPHRECTOMY N/A 04/12/2020 Laterality: N/A; Surgeon: LU [...] (order for outpatient) Please SecureChat or Call ([phone]) for any questions. Await attending attestation for final recommendations. Hank Noel MD Division of Gastroenterology, Hepatology, and Nutrition Clinical Fellow, PGY-5 Pager: [phone] For urgent/stat calls or consults 5pm to 7am, please page the on-call GI fellow on [employer]Genda. [facility]--> Internal Medicine--> Gastroenterology, Hepatology, & Nutrition--> 1st Call Janae Hatfield For urgent/stat calls or consults 7am to 5pm during the weekend, please page the on-call GI fellow on [employer]Genda. [facility]--> Internal Medicine--> Gastroenterology, Hepatology, & Nutrition--> All Hep & East Wknd Cons Fel Day For follow up questions regarding this patient 7am to 5pm during the weekday, contact the Hepatology consults fellow or CARLOS A on [employer]. [facility]--> Internal Medicine--> Gastroenterology, Hepatology, & [...] Estrada MD, MSc documented in this encounter [facility] 01-19-2024 Nurse Note 01/19/24 0900 Vitals [...] when talking/moving. Paulette Cordon RN [facility] 01-19-2024 Nurse Note Paged overnight coverage, Jasper Gastelum MD, via pager #[phone] Pt- George Styles. Sarah 1082. TM1. Was wondering if he can have his Melatonin order increased to 6mg. Per pt, he usually takes 8mg at home. -SAMI Duffy #[phone] Tati Charles RN [facility] 01-18-2024 Consult note Associated Order (s): IP CONSULT TO HEPATOBILIARY [facility] OS Main Hepatology Consult WebExchange --> IM Consult Serv [facility] --> [facility] Main Hepatology consult service [...] GUIDANCE 05/17/2022 Surgeon: Enzo Heart DO; [facility] INTER[facility]IONAL RADIOLOG[facility] (VIR) LIVER TRANSPLANT, ORTHOTOPIC N/A 04/12/2020 Laterality: N/A; Surgeon: LU Palma; [facility] MAIN OR KIDNEY TRANSPLANT W/O [place] TRIBE NEPHRECTOMY N/A 04/12/2020 Laterality: N/A; Surgeon: LU [...] (order for outpatient) Please SecureChat or Call ([phone]) for any questions. Await attending attestation for final recommendations. Hank Noel MD Division of Gastroenterology, Hepatology, and Nutrition Clinical Fellow, PGY-5 Pager: [phone] For urgent/stat calls or consults 5pm to 7am, please page the on-call GI fellow on [employer]. [facility]--> Internal Medicine--> Gastroenterology, Hepatology, & Nutrition--> 1st Call Fel Alysia For urgent/stat calls or consults 7am to 5pm during the weekend, please page the on-call GI fellow on [employer]. [facility]--> Internal Medicine--> Gastroenterology, Hepatology, & Nutrition--> All Hep & East Wknd Cons Day For follow up questions regarding this patient 7am to 5pm during the weekday, contact the Hepatology consults fellow or CARLOS A on [employer]. [facility]--> Internal Medicine--> Gastroenterology, Hepatology, & [...] (order for outpatient) Michael Estrada MD, MSc [facility] Work Phone: 01-16-2024 Plan of care note Internal Medicine Daily Progress Note Patient: George Styles, 1970, [id number] Physician: Arelis Mera MD, PGY3, Pager #[phone], TM1 service Assessment/Plan: George Styles is a [...] amlodipine 5mg CAD: non-obstructive CAD on [facility] 2018. - continue home aspirin [...] rounds. Signed, Arelis Mera MD [facility] 01-16-2024 Nurse Note Mr. Styles was admitted to [address] [place] [address]. On admission to [facility], from outside facility a dual RN initial assessment of skin condition was performed by Izzy Gutierrez RN and Leroy Singleton RN. Skin Assessment: Skin within defined limits:Yes Jose Score: 20 Wound Vision Vessel Slag Worker images obtained: No LDA Added: No Based [...] to nurses station when available. [facility] 01-16-2024 History and physical note Images from the original note were not included. Internal Medicine Admission History & Physical Patient: George Styles, 1970, [id number] Physician: Timothy Joseph MD, PGY1, Pager #[phone], TM 1 service Date of face to [...] DAY SURGERY MAIN OR KIDNEY TRANSPLANT W/O [place] TRIBE NEPHRECTOMY N/A 04/12/2020 Laterality: N/A; Surgeon: LU [...] itraconazole Fax results to: Dr. White - [phone] Transplant Neph - [phone] Gabapentin 400 MG capsule Sig: Take 1 [...] erythema: Skin: No jaundice or rash Neuro: historic interpreter 3-7, 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 Strength grossly [...] amlodipine 5mg CAD: non-obstructive CAD on [facility] 2019. - continue home aspirin [...] Pierson, Luisa Steven, Renee Rivera, Daisha Max Analysis Consultant: José Miguel Garnica All Txt: 04/13/2020 (Kidney), [...] results found for: CYCLOSPORIN , CYCLOSPORIN2 , [id number] , CYCLORAND No results found for: SIROLIMUS [...] request in chart. Kevin Prince MD Pager [phone] [facility] 01-16-2024 History and physical note Images from the original note were not included. Internal Medicine Admission History & Physical Patient: George Styles, 1970, [id number] Physician: Timothy Joseph MD, PGY1, Pager #[phone], TM 1 service Date of face to [...] DAY SURGERY MAIN OR KIDNEY TRANSPLANT W/O [place] TRIBE NEPHRECTOMY N/A 04/12/2020 Laterality: N/A; Surgeon: LU [...] itraconazole Fax results to: Dr. White - [phone] Transplant Neph - [phone] Gabapentin 400 MG capsule Sig: Take 1 [...] erythema: Skin: No jaundice or rash Neuro: historic interpreter 3-7, 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 Strength grossly [...] amlodipine 5mg CAD: non-obstructive CAD on [facility] 2018. - continue home aspirin [...] Pierson, Luisa Steven, Renee Rivera, Daisha Max Analysis Consultant: José Miguel Garnica All Txt: 04/13/2020 (Kidney), [...] results found for: CYCLOSPORIN , CYCLOSPORIN2 , [id number] , CYCLORAND No results found for: SIROLIMUS [...] request in chart. Kevin Prince MD Pager [phone] documented in this encounter [facility] 01-12-2024 History of Present illness Narrative [...] Prograf 0.2 MG Contact Info: Specialty ([place]) [phone] [facility] [phone] [facility] [phone] [facility] [phone] Bedside Delivery ([facility]) [phone] [facility] RX OUTREACH ADVANCED: Call Information: Date and Time of Contact: 01/25/2024 10:23 AM Method of Contact: By Phone Contact Type: Prescriptions Contactor: [facility] Contactee: Patient Contact Outcome: Left message (prograf myco) Contact Info: Specialty ([place]) [phone] [facility] [phone] [facility] [phone] Raheem [phone] Bedside Delivery ([facility]) [phone] documented in this encounter [facility] 01-12-2024 History of Present [...] Name: Prograf 0.2 MG Contact Info: Specialty ([place]) [phone] [facility] [phone] [facility] [phone] Raheem [phone] Bedside Delivery ([facility]) [phone] [facility] RX OUTREACH ADVANCED: Call Information: Date and Time of Contact: 01/25/2024 10:23 AM Method of Contact: By Phone Contact Type: Prescriptions Contactor: [facility] Contactee: Patient Contact Outcome: Left message (prograf myco) Contact Info: Specialty ([place]) [phone] [facility] [phone] [facility] [phone] [facility] [phone] Bedside Delivery ([facility]) [phone] [facility] RX OUTREACH ADVANCED: Call Information: Date and Time of Contact: 01/27/2024 10:19 AM Method of Contact: By Phone Contact Type: Prescriptions Contactor: [facility] Contactee: Patient Contact Outcome: Left message (myco prograf) Contact Info: Specialty ([place]) [phone] [facility] [phone] [facility] [phone] Raheem [phone] Bedside Delivery ([facility]) [phone] documented in this encounter [facility] 01-12-2024 History of Present [...] Prograf 0.2 MG Contact Info: Specialty ([place]) [phone] [facility] [phone] [facility] [phone] [facility] [phone] Bedside Delivery ([facility]) [phone] [facility] RX OUTREACH ADVANCED: Call Information: Date and Time of Contact: 01/25/2024 10:23 AM Method of Contact: By Phone Contact Type: Prescriptions Contactor: [facility] Contactee: Patient Contact Outcome: Left message (prograf myco) Contact Info: Specialty ([place]) [phone] [facility] [phone] [facility] [phone] [facility] [phone] Bedside Delivery ([facility]) [phone] [facility] RX OUTREACH ADVANCED: Call Information: Date and Time of Contact: 01/27/2024 10:19 AM Method of Contact: By Phone Contact Type: Prescriptions Contactor: [facility] Contactee: Patient Contact Outcome: Left message (myco prograf) Contact Info: Specialty ([place]) [phone] [facility] [phone] [facility] [phone] [facility] [phone] Bedside Delivery ([facility]) [phone] [facility] RX OUTREACH ADVANCED: Call Information: Date and Time of Contact: 02/01/2024 3:22 PM Contact Type: Prescriptions Contactor: [facility] Contactee: Patient Contact Outcome: Left message Shipping/Pickup: Medication Name: Mycophenolate 360mg and Prograf 0.2mg Pack Contact Info: Specialty ([place]) [phone] [facility] [phone] [facility] [phone] [facility] [phone] Bedside Delivery ([facility]) [phone] documented in this encounter [facility] 01-06-2024 History of Present illness Narrative [...] The neurologist wanted to send him to [facility] neurology but it is out of network [...] I have advised pt to contact insurance opendorse to see if they can provide a [...] aorta (I70.0) documented in this encounter [facility] 10-06-2023 History of Present illness Narrative [...] ; Prograf 0.2 MG Contact Info: Specialty ([place]) [phone] Jakob [phone] [facility] [phone] Raheem [phone] Bedside Delivery ([facility]) [phone] [facility] OUTREACH ADVANCED: Call Information: Date and Time of Contact: 10/23/2023 2:00 PM Method of Contact: By Phone Contact Type: Prescriptions Contactor: [facility] Contactee: Patient Contact Outcome: Left message and Call back later Shipping/Pickup: Medication Name: Mycophenolate 360mg and Prograf 0.2mg Contact Info: Specialty ([place]) [phone] [facility] [phone] [facility] [phone] Raheem [phone] Bedside Delivery ([facility]) [phone] documented in this encounter [facility] 09-11-2023 Miscellaneous Notes Pt discharged home [...] the oxygen during the night. pt will nut picker his oxygen from [employer] [facility], 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 This RN [...] Patient seen ambulating in the velazquez with NAILER OPERATOR. Patient was mildly short of breath [...] & HR 114. Messaged Mainor Loomis, via [employer] secure chat, Temp 100.8. His tylenol order [...] short period of time. 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 Episode of [...] (09/03 402) Na/K+/Phos/Mg/Ca: 136/4.1/--/1.6/-- (09/03 402) Bun/Creat/Cl/CO2/Glucose: 17/1.20/104/24/ (09/03 402) Relevant Microbiologic Data: CMV, EBV, [...] Critical Care Medicine Message Mainor Loomis, via [employer] secure chat, Good evening, just an FYI, [...] short period of time. 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 This morning, [...] [address] Loera here also (equalizing saw operator) Dr. Diaz aware of pt's increased [...] regular sleep/rest pattern promoted Sent a secure [employer] chat to Rosi LUZ concerning patient's temp [...] Medicine-Pediatrics, PGY-2 Mr. Styles was admitted to [address] [place] [address]. On admission to [facility], from home a [...] when available. documented in this encounter [facility] 09-11-2023 History of Present illness Narrative Provided follow-up emotional and spiritual support. Patient shared about rosemary of discharge and looking forward to seeing family Development Geologist provided: - Supportive presence - Active listening - Validation of feelings/emotions Patient encouraged to request a tubing assembler as needed. Chaplains are available in-house 24 hours a day and 7 days a week. For urgent matters in [facility], please page [phone]. If the request is not urgent, please enter a consult. Consults are responded to within 24 hours. Senior Staff Development Geologist Angie Singh Mdiv, [facility] Kirk [phone] [email or web address] 22/[email or web address] On-call [place]: [phone] 22/06 Pager ,BS, and Brock Hernandez Pager [phone] 09/11/23 1430 Clinical Encounter Type Visited With Patient Visit Type Follow-up Pastoral Time Spent 15 min Referral Other (See Comment) (rounding) Spiritual Assessment Spiritual Observation Spirituality helpful Emotional Observation Coping well Hope Observation Specific hope focus Support Observation By Family Interventions Provided Active listening;Supportive presence Facilitated Verbalization of feelings Explored Expectations Syrup Mixer Helper Education Syrup Mixer Helper Service Available Yes Educated Patient Plan of Care Continue Visiting PRN Images from the original note were not included. [facility] ([facility] Note: Non-Verbal Med Rec [facility] received the following discharge prescription(s): Total cost is $0. I have reviewed the Discharge Rx Reconciliation Report. The discharge prescription(s) will be delivered to the patient on 09/11/2023. Dimitrios Gurrola [facility],PharmD Specialty ([place]) [phone] Jakob [phone] [facility] Bedside Delivery [phone] [facility] [phone] [facility] Bedside Delivery [phone] Raheem [phone] Raheem Bedside Delivery [phone] [place] [phone] Jolene [phone] Electronically signed by Dimitrios Gurrola [facility],PharmD at 09/11/2023 10:52 AM EDT Internal Medicine Daily Progress Note Patient: George Styles, 1970, [id number] Physician: Evan Kelly MD, PGY-1, TM1 service Subjective/Interval History: Patient continues to require oxygen overnight for desaturations. With insurance limitations, only accepting agency to provide home oxygen backed out. After calling them to discuss, yLnn stated she would be willing to have patient drive to their facility to nut picker supplies, however they close at 5pm. 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 His [place] kidney disease was noted to be presumed [...] in 8-12 weeks Acute Hypoxic Respiratory Insufficiency [facility] Patient requiring 3-4L NC during admission. [...] 50mg BID CAD: non-obstructive CAD on [facility] 2018. - continue home aspirin [...] 5.05 (H) 11/19/2018 Kevin Prince MD, SERA Financial Report Service Sales Agent of Clinical Medicine [facility] Images from the original note were not included. Final Discharge Planning and Transportation Final Discharge Planning Discharge Disposition: Home Services at Discharge: Outpatient clinical services (ie: lab draws, transfusions, injectables) (Home Oxygen by [facility]) Selected Continued Care - Admitted Since 08/28/2023 Durable Medical Equipment Coordination complete. Service Provider Selected Services Address Phone Fax Patient Preferred [facility] Durable Medical Equipment [address] [facility] [address] Internal Comment last updated by Lora Lawrence RN 09/10/2023 1334 Correct contact information: [address] [place] [address] [place] [address] parts counter specialist- you do not need to call at discharge, I already notified the company. Addendum [phone] [facility] notified this CM they are out of patient's insurance area and will not be able to service this patient at time of discharge. Provider notified. Addendum [phone] Dr Kelly called [facility] spoke to Lynn and she said they are willing to accept patient if the patient would drive to the [place] office and nut picker the supplies. Patient is willing to [...] Lora Colón RN, MSN, CCM, CMCN Clinical Hat Body Inspector- [facility] Transplant #[phone] Department of Pharmacy Transplant Note Patient: George [...] dose adjustment Name: Matt Kramer RPh,PharmD Phone: [phone] Date/Time: 09/10/2023 11:33 AM This CM sent referral via Sprout Route for O2 concentrator to 4 agencies Start date today Timer set for 1330 [employer] [facility] [employer] Addendum 1332 One accepting company reserved in [employer] [address] [place] [address] [place] [address] Lora Colón RN, MSN, CCM, CMCN Clinical Hat Body Inspector- [facility] Transplant #[phone] NUTRITION FOLLOW-UP Nutrition Plan of Care: 1. Continue current diet order. 2. No oral supplements warranted at this time. 3. Monitor for significant weight changes. Monitor GI, skin integrity. 4. Monitor and encourage po intakes with goal of average po being 75-100%. 5. fuel cell technician to follow. ___ Met with patient [...] time. Will continue to monitor. RHIANNON BirminghamR Pager:[phone] Transplant Infectious Disease (Team 3) Progress Note [...] (personally rewiewed): RVP negative Imaging (personally reviewed): 10/2 CT C/A/P 1. [...] sign off. Please Epic message or page [phone] with questions. 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 His [place]olumne kidney disease was noted to be presumed [...] 50mg BID CAD: non-obstructive CAD on [facility] 2018. - continue home aspirin [...] to follow. Please Epic message or page [phone] with questions. 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 His [place] kidney disease was noted to be presumed [...] 50mg BID CAD: non-obstructive CAD on [facility] 2019. 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 His [place] kidney disease was noted to be presumed [...] 50mg BID CAD: non-obstructive CAD on [facility] 2018. - continue home aspirin [...] 5.05 (H) 11/19/2018 Kevin Prince MD, MADISONN Financial Report Service Sales Agent of Clinical Medicine [facility] Transplant Infectious Disease (Team [...] to follow. Please Epic message or page [phone] with questions. Ann Marie Haskins MD PGY-4, [...] he continues to improve. Please message via Neop[employer]pecta secure chat or page with any questions or concerns. Evan White DO Financial Report Service Sales Agent Division of Infectious Disease Transplant Infectious Disease [...] to follow. Please Epic message or page [phone] with questions. Evan White DO Transplant Infectious Diseases Images from the original note were not included. Pulmonary/Critical Care Medicine Daily Progress Note Reason for Consultation: bronch for infectious workup Requesting Physician: Dr. Prince CURRENT HOSPITALIZATION: Admit Date: 08/28/2023 [facility] LOS: 9 days Impression [...] and interpreted reviewed the radiographic data in [email or web address]. 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 His [place] kidney disease was noted to be presumed [...] 50mg BID CAD: non-obstructive CAD on [facility] 2018. - continue home aspirin [...] 5.05 (H) 11/19/2018 Kevin Prince MD, FASN Financial Report Service Sales Agent of Clinical Medicine [facility] Images from the original note were not included. Pulmonary/Critical Care Medicine Daily Progress Note Reason for Consultation: bronch for infectious workup Requesting Physician: Dr. Prince CURRENT HOSPITALIZATION: Admit Date: 08/28/2023 [facility] Hospital LOS: 8 days Impression [...] and interpreted reviewed the radiographic data in [facility]. Acute Occupational Therapy Evaluation Prior to [...] Assessment: Transfer Assessment: Sit to Stand Transfer Enochs Level: Sit->Stand: independent Skilled Intervention/Details: Sit->Stand: x1 from EOB, x1 from toilet Stand to Sit Transfer Enochs Level: Stand->Sit: independent Skilled Intervention/Details: Stand->Sit: x1 to toilet, x1 to EOB Functional Mobility: Functional Mobility Enochs Level: Functional Mobility/Gait: independent Ambulation Distance (Feet): 20 Skilled Intervention/Details - Functional Mobility/Gait: pt performed functional mobility to/from RR w/ no overt LOB Outcome Score(s): CURRENT [facility] Daily Activity Inpatient Short Form Putting on/Taking Off Lower Body Clothin - A Little Assistance Bathin - A Little Assistance Toiletin - A Little Assistance Putting on/Taking Off Upper Body Clothin - No Assistance Groomin - No Assistance Eatin - No Assistance CURRENT [facility] Activity Raw Score: 21 CURRENT [facility] Activity Functional Limitation/Modifier: 32.79% Currently Impaired in [...] Intact Mobility Assessment: Supine to Sit Mobility Enochs Level: Supine->Sit: modified independence Bed Features/Set-up: Supine->Sit: Head of bed elevated Sit to Supine Mobility Enochs Level: Sit->Supine: not tested Balance: Sitting Balance [...] environment. Transfer Assessment: Sit to Stand Transfer Enochs Level: Sit->Stand: independent Skilled Intervention/Details: Sit->Stand: From EOB x 2 without difficulty. Stand to Sit Transfer Enochs Level: Stand->Sit: independent Assistive Device: Stand->Sit: armed chair Skilled Rationale: Verbal cues, Positioning Gait/Functional Mobility: Gait Assessment Enochs Level: Gait: stand-by assist Assistive Device: Gait: rollator Ambulation Distance (Feet): 400 Gait Deviations Identified: decreased grace, decreased gait speed Gait Skilled Rationale: verbal, upright posture, increase step length, increase foot clearance Skilled Intervention/Details - Gait: Reasonable foot clearnce without loss of balance but endorsing dyspnea as 6-7/10. Stairs: Stairs Assessment Enochs Level: Stair Negotiation: not tested Outcome Score(s): CURRENT [facility] Basic Mobility Inpatient Short Form Turning over in bed: 4 - No Assistance Sitting/standing from chair: 4 - No Assistance Moving from lying on back to sittin - No Assistance Moving to and from bed to chair: 3 - A Little Assistance Walk in hospital room: 3 - A Little Assistance Climbing 3-5 steps with a railin - A Little Assistance CURRENT [facility] Mobility Raw Score: 21 CURRENT [facility] Mobility Functional Limitation/Modifier: 28.97% Currently Impaired in [...] Daily Progress Note Patient: George Styles, 1970, [id number] Physician: Evan Kelly MD, PGY-1, TM1 service [...] s/p 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 His [place]umne kidney disease was noted to be presumed [...] 50mg BID CAD: non-obstructive CAD on [facility] 2018. - continue home aspirin [...] 5.05 (H) 11/19/2018 Kevin Prince MD, MADISONN Financial Report Service Sales Agent of Clinical Medicine The [facility] Transplant Infectious Disease (Team [...] to follow. Please Epic message or page [phone] with questions. Evan White, DO Transplant Infectious Diseases Images from the original note were not included. 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 His tuolumne kidney disease was noted to be presumed [...] 50mg BID CAD: non-obstructive CAD on [facility] 2018. - continue home aspirin [...] P 450 system Kevin Prince MD, SERA Financial Report Service Sales Agent of Clinical Medicine [facility] ERT Note: ERT called [...] MD, PhD Internal Medicine and Pediatrics PGY-3 [facility] Brief plan [...] MD, PhD Internal Medicine and Pediatrics PGY-3 [facility] Transplant Infectious [...] to follow. Please Epic message or page [phone] with questions. 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 His tuolumne kidney disease was noted to be presumed [...] renal function CAD: non-obstructive CAD on [facility] 2018. 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 His tuolumne kidney disease was noted to be presumed [...] renal function CAD: non-obstructive CAD on [facility] 2018. - continue home aspirin [...] 5.05 (H) 11/19/2018 Kevin Prince MD, SERA Financial Report Service Sales Agent of Clinical Medicine [facility] Progression of Care Note [...] Lora Colón RN, MSN, CCM, CMCN Clinical Hat Body Inspector- [facility] Transplant #[phone] Made introductory visit with patient. Provided emotional and spiritual support. Patient shared about: - Source of Rosemary: Camping/Fishing/Family - Spirituality/Latter-Day Affiliation: raised Orthodox - Family Support/history - Experience with illness/hospital course - Hopes for healing/future Development Geologist provided: - Supportive presence - Active listening - Validation of feelings/emotions - Pledged prayer Patient encouraged to request a tubing assembler as needed. Chaplains are available in-house 24 hours a day and 7 days a week. For urgent matters in [facility], please page [phone]. If the request is not urgent, please enter a consult. Consults are responded to within 24 hours. Senior Staff Development Geologist Angie Singh Mdiv, [facility] Kirk [phone] [email or web address] 22/06 On-call Kirk: [phone] 22/06 Pager ,[facility], and Brock Hernandez Pager [phone] 09/02/23 1112 Clinical Encounter Type Visited With Patient Visit Type Introduction Pastoral Time Spent 15 min Referral Other (See Comment) (rounding) Spiritual Assessment Spiritual Observation Spirituality helpful Emotional Observation Coping well Hope Observation Specific hope focus Support Observation By Family Interventions Provided Active listening;Supportive presence Facilitated Verbalization of feelings Explored Expectations Syrup Mixer Helper Education Syrup Mixer Helper Service Available Yes Educated Patient Outcomes Patient Outcomes Reduced distress Plan of Care Continue Visiting PRN NUTRITION RISK SCREENING NOTE Nutrition Plan of Care: 1. Continue current diet order. 2. No oral supplements warranted at this time. 3. Monitor for significant weight changes. Monitor GI and skin integrity. 4. Monitor and encourage po intakes with goal of average po being 100%. 5. fuel cell technician to follow. George Styles is a 53 y.o. 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 His tu[place]umne kidney disease was noted to be presumed hepatorenal syndrome. His post-transplant course was noteworthy for nephrostomy tube (05/17/2022-09/10/2022) due to concern for ureteral stone. He presents as a direct admission for fever, cough, for infectious workup. Pt unavailable and information obtained via chart review Nut Picker Screening Pt's appetite is good. Pt with [...] time. Will continue to monitor. 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 His [place]umne kidney disease was noted to be presumed [...] / renal function CAD: non-obstructive CAD on [facility] 2018. - continue home aspirin [...] as outlined above. Kevin Prince MD Pager [phone] Summary: Pharmacy Med Rec Department of Pharmacy [...] Provider: Zuly Bruno NP Pharmacy: [facility] [place] Other Comments: Patient reported his Last Home Dose of mycophenolate & tacrolimus was on 08/28/23 at 0900. Patient reported he was taking Bactrim and benzonatate for fevers and a cough he was having. Please feel free to contact me with any further questions. Name: Heidy Chatman Phone #: [phone] Date/Time: 09/01/2023 2:01 PM Time Spent: 15 minutes Associated attestation - Matt Kramer RPh,PharmD - 09/01/2023 2:28 PM EDT Department of Pharmacy Admission Medication Reconciliation Note Patient: George Styles Room/Bed: 1062/A I have reviewed the home medication list with the Machine Plaster Mixer. All changes to the home medication list have been updated in [facility]. Updated INDUSTRIAL ROOF PLUMBER Med List: Prior to Admission Medications Prescriptions [...] questions. Name: Matt Kramer RPh,PharmD Phone #: [phone] Date/Time: 09/01/2023 2:28 PM Transplant Infectious Disease [...] to follow. Please Epic message or page [phone] with questions. 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 His tuolumne kidney disease was noted to be presumed [...] renal function CAD: non-obstructive CAD on [facility] 2018. - continue home aspirin [...] 5.05 (H) 11/19/2018 Kevin Prince MD, SERA Financial Report Service Sales Agent of Clinical Medicine [facility] Discharge Planning Patient Assessment [...] Yes Name and Contact information: Gian Styles ([phone]) Reviewed and Updated in Demographics? : Yes [...] patient on Anticoagulation? : No [id number] [place] [address] - [address] [facility] [address] [facility] [address] Mining Engineer Does the patient or graphic art sales representative express financial concerns? : No [...] Plan 1. Identified self and role as Hat Body Inspector. 2. Confirmed and updated demographics and treatment team. 3. Hat Body Inspector will continue to follow with medical team/pt for any other additional discharge needs. Kasandra DON RN [facility] [phone] *Please note I am float CM and work Thursday and Thursday every other week. Please call [phone] for assist in my absence. 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 His tuol[place]ne kidney disease was noted to be presumed [...] renal function CAD: non-obstructive CAD on [facility] 2018. 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 His tu[place]umne kidney disease was noted to be presumed [...] 50mg BID CAD: non-obstructive CAD on [facility] 2018. - continue home aspirin 81mg daily, atorvastatin 20mg daily Gout: continue home allopurinol 200mg daily BPH: continue home flomax 0.4mg daily DVT PPX: SQH Code Status: Full Code Disposition: Pending clinical course. Anticipate eventual discharge home. Discussed with team and attending, Kevin Prince MD, on rounds. Signed, Laurel Serrano MD, PhD documented in this encounter [facility] 09-10-2023 Hospital Discharge instructions Laurel [...] a sleep doctor. You will need to nut picker the oxygen concentrator when you leave [...] healthy foods. documented in this encounter [facility] 09-01-2023 Consult note Associated Order (s): IP CONSULT TO PULMONOLOGY Pulmonary Medicine Inpatient Consultation Reason for Consultation: bronch for infectious workup Requesting Physician: Dr. Prince Pulmonary Attending Physician: Dr. Diaz CURRENT HOSPITALIZATION: Admit Date: 08/28/2023 [facility] Hospital LOS: 4 days Impression/Recommendations: [...] short period of time. 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 Other histories as documented in the [...] ill contacts. He traveled to [place] to [facility] in May. REVIEW OF SYSTEMS A [...] 04/12/2020 Laterality: N/A; Surgeon: LU Palma; [facility] MAIN OR KIDNEY TRANSPLANT W/O [place] TRIBE NEPHRECTOMY N/A 04/12/2020 Laterality: N/A; Surgeon: LU [...] Alamo MD I can be reached via Neop[employer]pecta secure message [email or web address]) or Pager #[phone] documented in this encounter [facility] 08-28-2023 History and physical note Images from the original note were not included. Internal Medicine Admission History & Physical Patient: George Styles, 1970, [id number] Physician: Aric Turner MD, PGY1, Pager #[phone], Drinks4-you service Date of face to face patient [...] So he went to see the transplant hog pusher. He was found elevated Cr and asked [...] Appetite is ok now. Urine is about 8109-7580 ml every day. 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 His [place] kidney disease was noted to be presumed [...] Urinary histoplasmosis - PJP, candid PCR - Interior Design Director transplant ID Acute Kidney Injury with [...] 50mg BID CAD: non-obstructive CAD on [facility] 2018. - continue aspirin 81mg [...] Pierson, Luisa Steven, Renee Rivera, Daisha Max Analysis Consultant: José Miguel Garnica All Txt: 04/13/2020 (Kidney), [...] results found for: CYCLOSPORIN , CYCLOSPORIN2 , [id number] , CYCLORAND No results found for: SIROLIMUS [...] Rest as above. Kevin Prince MD Pager [phone] documented in this encounter [facility] 08-28-2023 History of Present illness Narrative Images from the original note were not included. 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 Analysis Consultant: Anayeli Burt Date of Liver Transplant: 04/13/2020 (Kidney), 04/13/2020 (Liver) 3 years 4 months post Liver/Kidney Transplant Primary Disease: Hypertensive Nephrosclerosis Transplant All Around Gear Machine Operator: Erma Roe/ Daisha Max Primary [...] and faMOTIdine === None Specified Preferred Lab: [facility] Change in lab frequency / [...] every 12 hours. ADDITIONAL INFORMATION: None Specified, [id number] [place] [address] - [address] [facility] [address] [facility] [address] [facility] [address] [place] [address] [facility]/pharmacy #[id number] [place] [address] [address] [facility] [address] [facility] [address] [facility] [address], [place] [address] [facility] [address] ROS and SCREEN: Chest Pain: negative Cough: [...] PHYSICIAN: I saw George Styles at the [facility] on 08/28/2023. Patient is a 53 y.o. 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 His [place]umne kidney disease was noted to be presumed [...] DAY SURGERY MAIN OR KIDNEY TRANSPLANT W/O [place] TRIBE NEPHRECTOMY N/A 04/12/2020 Laterality: N/A; Surgeon: LU [...] you have any questions. Steve Munoz MD director of the biophysics facility Division of Nephrology [facility] documented in this encounter [facility] 08-28-2023 Instructions Mainor Busby RN - 08/28/2023 2:15 PM EDT - Admission for fevers, cough, and night sweats documented in this encounter [facility] 08-19-2023 History of Present illness Narrative [facility] RX OUTREACH ADVANCED: Call Information: Date and Time of Contact: 08/19/2023 2:52 PM Method of Contact: By Phone Contact Type: Prescriptions Contactor: [facility] Contactee: Patient Shipping/Pickup: Medicare B Refill?: No Medication Name: Tacro 0.5mg Delivery Method: Air Delivery Location: Home Signature Required: No Mailing/Pickup Date: 08/25/2023 Shipping Address: [address] [place] [address] Contact Info: Specialty ([place]) [phone] [facility] [phone] [facility] [phone] [place] [phone] Bedside Delivery ([facility]) [phone] documented in this encounter [facility] 06-12-2023 History of Present illness Narrative Images from the original note were not included. George Styles is a 53 y.o. 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 No longer follows with a local hog pusher. History of Present Illness: Since George was [...] and lab results. Rebeca Gutierrez MSN, RN, ENTRY ENGINEER-BC, CCTN Certified Nurse Practitioner Comprehensive Transplant Center [facility] [address] [facility] [address] documented in this encounter [facility] 06-12-2023 Instructions JEANNA Hess - 06/12/2023 3:00 PM EDT No change in immunosuppression. documented in this encounter [facility] 06-10-2023 History of Present illness Narrative [facility] OUTREACH ADVANCED: Call Information: Method of Contact: By Phone Contact Type: Prescriptions Contactor: [facility] Contactee: Patient Contact Outcome: Left message Shipping/Pickup: Medication Name: Mycophenolate sod 180 mg Contact Info: Specialty ([place]) [phone] [facility] [phone] [facility] [phone] Raheem [phone] Bedside Delivery ([facility]) [phone] [facility] RX OUTREACH ADVANCED: Call Information: Date and Time of Contact: 06/12/2023 9:43 AM Method of Contact: By Phone Contact Type: Prescriptions Contactor: [facility] Contactee: Patient Contact Outcome: Left message and Follow-up Shipping/Pickup: Medicare B Refill?: No Medication Name: Myco 180 Contact Info: Specialty ([place]) [phone] [facility] [phone] [facility] [phone] Raheem [phone] Bedside Delivery ([facility]) [phone] [facility] RX OUTREACH ADVANCED: Call Information: Date and Time of Contact: 06/12/2023 10:08 AM Method of Contact: By Phone Contact Type: Prescriptions Contactor: [facility] Contactee: Patient Shipping/Pickup: Medicare B Refill?: No Medication Name: Mycophenolate 180mg DR Delivery Method: Air Delivery Location: Home Signature Required: No Mailing/Pickup Date: 06/17/2023 Shipping Address: [address] [place] [address] Contact Info: Specialty ([place]) [phone] [facility] [phone] [facility] [phone] Raheem [phone] Bedside Delivery ([facility]) [phone] documented in this encounter [facility] 03-12-2023 History of Present illness Narrative [facility] RX OUTREACH ADVANCED: Call Information: Date and Time of Contact: 03/12/2023 10:34 AM Method of Contact: By Phone Contact Type: Prescriptions Contactor: [facility] Contactee: Patient Shipping/Pickup: Medicare B Refill?: No Medication Name: Mycophenoloate sod 360 mg prednisone 5mg Delivery Method: Air Delivery Location: Home Signature Required: No Mailing/Pickup Date: 03/16/2023 Shipping Address: [address] [place] [address] Contact Info: Specialty ([place]) [phone] Jakob [phone] [facility] [phone] Raheem [phone] Bedside Delivery ([facility]) [phone] [facility] RX OUTREACH ADVANCED: Call Information: [...] No Mailing/Pickup Date: 03/19/2023 Shipping Address: [address] Contact Info: Specialty ([place]) [phone] [facility] [phone] [facility] [phone] Raheem [phone] Bedside Delivery ([facility]) [phone] documented in this encounter [facility] 03-10-2023 History of Present illness Narrative [facility] OUTREACH ADVANCED: Call Information: Date and Time of Contact: 03/10/2023 12:00 PM Method of Contact: By Phone Contact Type: Prescriptions Contactor: [facility] Contactee: Patient Contact Outcome: Left message and Call back later Shipping/Pickup: Medication Name: Mycophenolate ; Tacrolimus Contact Info: Specialty ([place]) [phone] [facility] [phone] [facility] [phone] Raheem [phone] Bedside Delivery ([facility]) [phone] documented in this encounter [facility] 03-10-2023 History of Present illness Narrative [facility] RX OUTREACH ADVANCED: Call Information: Date and Time of Contact: 03/10/2023 12:00 PM Method of Contact: By Phone Contact Type: Prescriptions Contactor: [facility] Contactee: Patient Contact Outcome: Left message and Call back later Shipping/Pickup: Medication Name: Mycophenolate ; Tacrolimus Contact Info: Specialty ([place]) [phone] [facility] [phone] [facility] [phone] Raheem [phone] Bedside Delivery ([facility]) [phone] [facility] RX OUTREACH ADVANCED: Call Information: Date and Time of Contact: 03/12/2023 10:32 AM Method of Contact: By Phone Contact Type: Prescriptions Contactor: [facility] Contactee: Patient Contact Outcome: Left message Shipping/Pickup: Medication Name: Mycophenolate sodium (MYFORTIC) 180 MG Tab tacrolimus 0.5 mg Contact Info: Specialty ([place]) [phone] [facility] [phone] [facility] [phone] Raheem [phone] Bedside Delivery ([facility]) [phone] documented in this encounter [facility] 01-16-2023 History of Present illness Narrative -Referring Provider for today's consult: Daisha Max DO -Primary Care Provider: Zuly Bruno History of Present Illness George Styles is a 52 y.o. male who presents to the [facility]ology [facility] today for follow-up [...] DAY SURGERY MAIN OR KIDNEY TRANSPLANT W/O [place] TRIBE NEPHRECTOMY N/A 04/12/2020 Laterality: N/A; Surgeon: LU [...] 0.3 12/29/2022 Explant Pathology Pathologic Diagnosis A. [place] liver, orthotopic liver transplant resection (1458 gram): [...] A/P with IV contrast (06/27/2022): 1. Both tu[place]umne kidneys are atrophic with improvement in right-sided [...] frequent nighttime urination, etc). Daisha Max DO Financial Report Service Sales Agent Gastroenterology, Hepatology and Nutrition [facility] Pager: [phone] Images from the original note were not included. 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 Analysis Consultant: Anayeli Burt Date of Liver Transplant: 04/13/2020 (Kidney), 04/13/2020 (Liver) 2 years, 8 months post Liver/Kidney Transplant Primary Disease: Hypertensive Nephrosclerosis Transplant All Around Gear Machine Operator: Steve Munoz Primary Care physician: [...] levels: No results found for: CYCLOSPORIN, CYCLOSPORIN2, [id number], CYCLORAND No components found for: CYCLOSPORINE, 2HR [...] hours. ADDITIONAL INFORMATION: None Specified [id number] [place] [address] - [address] [facility] [address] [facility] [address] [facility] [address] [facility], [address] [place] [address] [id number] [place] [address] [address] [facility] [address] [place] [id number] [facility] [address], [place] [address] [place] [address] ROS and SCREEN: Chest Pain: negative Cough: [...] ADDRESS WITH PHYSICIAN: documented in this encounter [facility] 01-16-2023 Instructions José Miguel Garnica RN - 01/16/2023 9:40 AM EST - Labs Every 2 months - Discuss night time urination with your PCP - Schedule Colonoscopy through PCP - Follow up in 1 year documented in this encounter [facility] 09-10-2022 History of Present illness Narrative UROLOGY CLINIC NOTE Reason for Appointment: BPH with LUTS HPI: Patient is a 52 yo male with a DDRT to the [facility] in 2019. Nephrostomy tube placed 05/17/22 [...] and no hydronephrosis. Some reflux up the tu[place]ne right ureter but good drainage of both transplant and [place]ne ureter to the bladder. Nephrostomy tube was [...] transplant, orthotopic (N/A, 04/12/2020); kidney transplant w/o tu[place]umne nephrectomy (N/A, 04/12/2020); and placement nephrostomy catheter [...] Negative for , diarrhea, constipation Genitourinary: See QAGAN TAYAGUNGIN Neurological: Negative for headaches. Lymph/Heme: Negative for [...] x 4, Normal strength. No edema. Skin: [place], warm, and dry. There are no rashes [...] and no hydronephrosis. Some reflux up the [place] right ureter but good drainage of both transplant and [place] ureter to the bladder. Nephrostomy tube was [...] MD 09/10/22 documented in this encounter [facility] 07-07-2022 History of Present illness [...] to have transplant ureter with anastomosis to [place] right ureter. Nephrostogram without filling defects and no hydronephrosis. Some reflux up the [place] right ureter but good drainage of both transplant and [place] ureter to the bladder. Nephrostomy tube was removed without issue. Patient does have some sensation of incomplete bladder emptying and occasional sensation in his right flank. PVR today was 33cc. Will re-evaluate urinary symptoms at next appointment. --continue Flomax --RTC in one month flow flow/PVR/IPSS Patient to call with any additional questions or concerns. Ryan Yepez MD 07/07/22 documented in this encounter [facility] 06-27-2022 History of Present illness [...] transplant, orthotopic (N/A, 04/12/2020); kidney transplant w/o [place]ne nephrectomy (N/A, 04/12/2020); and placement nephrostomy catheter [...] Negative for , diarrhea, constipation Genitourinary: See QAGAN TAYAGUNGIN Neurological: Negative for headaches. Lymph/Heme: Negative for [...] x 4, Normal strength. No edema. Skin: [place], warm, and dry. There are no rashes [...] bag if needed. documented in this encounter [facility] 06-27-2022 History and physical note Patient was evaluated in clinic as a nurse visit. Please refer to Rena Brewster's note. [facility] Work Phone: 06-27-2022 History and physical note Patient was evaluated in clinic as a nurse visit. Please refer to Rena Brewster's note. documented in this encounter [facility] 06-27-2022 History of Present illness Narrative TEACHING REGARDING TX NEPH COMPLETED-NEPH TUBE SITE DRY AND INTACT-CLEAR YELLOW URINE IN THE BAG-INSTRUCTED ABOUT FLUSHING, BAG CHANGING ETC. NUMEROUS QUESTIONS ASKED AND ANSWERED-VERBALIZED UNDERSTANDING documented in this encounter [facility] 06-18-2022 Note EXAMINATION: CT ABD/ [...] mass or enlargement. KIDNEYS: Marked atrophy of [place] kidneys. Transplant right pelvic kidney with percutaneous [...] by: MÓNICA JIMENEZ Date: 2022-06-18 13:53 [facility] 06-12-2022 Instructions Anayeli Christianson RN - 06/12/2022 3:21 PM EDT Do not take apart/disrupt nephrostomy tube system. Call Interventional Radiology and/or on-call transplant nurse [phone] for instruction if need to flush (clot or decreased flow). Take cipro 500mg, one tablet, twice per day for 14 days documented in this encounter [facility] 06-12-2022 History of Present illness Narrative Images from the original note were not included. 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 Analysis Consultant: Anayeli Burt Date of Liver Transplant: 04/13/2020 (Kidney), 04/13/2020 (Liver) 2 year, 1 months post Liver/Kidney Transplant Primary Disease: Hypertensive Nephrosclerosis Transplant All Around Gear Machine Operator: Steve Munoz Primary Care physician: [...] transport for appointment: no Did front office representative confirm current address and insurance information is [...] PREFERRED LAB AND PHARMACY: None Specified [facility] [place] [address] - [address] [facility] [address] [facility] [address] [facility] [address] [facility] [place] [address] [facility]/pharmacy #[id number] [place] [address] [address] [facility] [address] [facility] [address] [facility] [address], [address] [facility] [address] ROS and SCREEN: Chest Pain: negative Cough: negative SOB: negative Abd Pain: negative Nausea: positive Vomiting: negative Diarrhea: negative Constipation: negative Dysuria: positive Edema: negative Tremors: negative Headaches: negative Wound issues: negative Pt has neph tube w clear yellow urine. States he had a small clot that he dislodged QUESTIONS OR CONCERNS TO ADDRESS WITH PHYSICIAN: I saw George Styles at the [facility] on 06/12/2022. Patient is a 52 y.o. 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 His [place] kidney disease was noted to be presumed [...] DAY SURGERY MAIN OR KIDNEY TRANSPLANT W/O [place] TRIBE NEPHRECTOMY N/A 04/12/2020 Laterality: N/A; Surgeon: LU [...] you have any questions. Steve Munoz MD director of the biophysics facility Division of Nephrology [facility] documented in this encounter [facility] 06-04-2022 Instructions TATI GROVE - 06/04/2022 11:04 AM EDT Thank you for joining us for your neph tube follow up. We recommend routine exchange every 8-10 weeks. Please reach out at [phone] when it is time to set your next routine exchange. Thank you IR clinic documented in this encounter [facility] 06-04-2022 History of Present [...] exchange. Verbalized understanding. documented in this encounter [facility] 05-20-2022 Note Formatting of [...] time of his discharge. Leon Cook RN [facility] 05-20-2022 Miscellaneous Notes Patient [...] provide teaching before his discharge Leon GALLARDO #[id number] Leon Cook RN Afternoon assessment completed at [...] Interdisciplinary Rounds/Family Conf Outcome: Ongoing Discussed with [facility] re: possible urine culture performed [...] with questions. Evan Byrd MD Urology, PGY-2 #[id number] I certify that this patient requires inpatient [...] Added:Tess Lorenzana RN documented in this encounter [facility] 05-20-2022 Note Formatting of [...] discharge/transition of care. Outcome: Adequate for Discharge [facility] 05-20-2022 Note Formatting of this n ote might be different from the original. Anne Dillard MD R10 Rm 1006 Jensen George Please let's have a clear order on how the nephrostomy site dressing need to be changed when the patient goes home so we provide teaching before his discharge Leon RN #[id number] Leon Cook RN [facility] 05-20-2022 History of Present illness Narrative Images from the original note were not included. [facility]: [facility] the following [facility] prescription(s): Medication reconciliation was completed with comparison to discharge reconciliation report. The prescription(s) will be delivered to the patient's bedside on 05/20/22. Total cost is $0. Yanira Her RPh,PharmD Specialty ([place]) [phone] [facility] [phone] [facility] [phone] Rahe[place] [phone] [place] [phone] Bedside Delivery ([facility]) [phone] Attending I saw George Styles at the [facility] on 05/19/2022. I saw and [...] Follow-up with urology for ongoing management Maxi Prignle MD Internal Medicine Daily Progress Note Patient: George Styles, 1970, [id number] Physician: Liam Julian MD, PGY-3, Pager #[phone], [id number] Subjective/Interval History: No acute events overnight. Passed [...] Saldana MD Division of Hospital Medicine Pager [phone] Attending I saw George Styles at the [facility] on 05/18/2022. I saw and [...] Daily Nishant Gamez MD 100 mg at 05/17/2247 amLODIPine (NORVASC) tablet 5 mg 5 mg [...] Daily Progress Note Patient: George Styles, 1970, [id number] Physician: Nishant Gamez MD, PGY2, Pager #[phone], [email or web address] Subjective/Interval History: Nephrostomy tube placed yesterday with [...] is FULL. 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 Daya (Nunu) Jeff Saldana MD Division of Hospital Medicine Pager [phone] Internal Medicine Daily Progress Note Patient: George Styles, 1970, [id number] Physician: Nishant Gamez MD, PGY2, Pager #[phone], [id number] Subjective/Interval History: Worsening creatinine this morning with [...] still working to his knowledge. Daya (Aggie aSldana MD Division of Hospital Medicine Pager [phone] Attending I saw George Styles at the [facility] on 05/17/2022. I saw and [...] for Discharge Planning Patient is here for AFYE and renal stone in patient with Hx of Kidney/Liver transplant 04/12/2020. Urology recommended empiric abx until urine culture returns. After review of chart and discussion with treatment team, Hat Body Inspector has not identified needs at this time. [...] follow. Introduced self and role of the tubing assembler to patient. Provided emotional and spiritual support and the patient responded by sharing their experience and discussed the following: - Spirituality/Latter-Day Affiliation: As a kid attended Orthodox jehovah's witness but not a strong identity now - Family support - pt's brothers live close by Development Geologist provided: - Supportive presence - Active listening - Validation of feelings/emotions Patient encouraged to request a tubing assembler as needed. Chaplains are available in-house 24 hours a day and 7 days a week. For urgent matters in [facility], please page [phone]. If the request is not urgent, please enter a consult. Consults are responded to within 24 hours. Angie Singh Mdiv, [facility] Burn Unit and Transplant [place] [phone] Development Geologist [facility] Development Geologist [place] [phone] [email or web address] 22/06 [place] Pager [phone] 22/06 Pager ,[facility], and [place] 1500 22/06 [place]heem Pager [phone] 05/16/22 1120 Clinical Encounter Type Visited With Patient Visit Type Introduction Pastoral Time Spent 15 min Referral Other (See Comment) (Rounding) Spiritual Assessment Spiritual Observation Spirituality helpful;Identifies as (see comment) (Judaism) Emotional Observation Coping well Hope Observation Hopeful and accepting Support Observation By Family Interventions Provided Active listening;Supportive presence Facilitated Verbalization of feelings;Sharing of life story;Identifying support system Explored Expectations Syrup Mixer Helper Education Syrup Mixer Helper Service Available Yes Educated Patient Outcomes Patient Outcomes Articulated purpose/meaning Plan of Care Continue Visiting PRN Internal Medicine Daily Progress Note Patient: George Styles, 1970, [id number] Physician: Nishant Gamez MD, PGY2, Pager #[phone], [id number] Subjective/Interval History: Overall feeling okay this morning. 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 [...] Supervision Transfer Assessment: Sit to Stand Transfer Enochs Level: Sit->Stand: independent Skilled Intervention/Details: Sit->Stand: x1 from EOB Stand to Sit Transfer Enochs Level: Stand->Sit: supervision Assistive Device: Stand->Sit: armed chair Skilled Rationale: Controlled descent for sitting, Verbal cues Gait/Functional Mobility: Gait Assessment Enochs Level: Gait: supervision Assistive Device: Gait: gait belt Gait Distance (feet): 200 Gait Deviations Identified: decreased grace, decreased step length, decreased stride length Gait Skilled Rationale: verbal, upright posture Skilled Intervention/Details - Gait: Pt with steady gait without LOB or complaints of SOB. Stairs: Stairs Assessment Enochs Level: Stair Negotiation: stand-by assist Assistive Device: Stair Negotiation: gait belt, left rail (ascending) Number of stairs: 9 Stairs Skilled Rationale: reciprocal pattern Outcome Score(s): CURRENT [facility] Basic Mobility Inpatient Short Form Turning over in bed: 4 - No Assistance Sitting/standing from chair: 4 - No Assistance Moving from lying on back to sittin - No Assistance Moving to and from bed to chair: 4 - No Assistance Walk in hospital room: 3 - A Little Assistance Climbing 3-5 steps with a railin - A Little Assistance CURRENT [facility] Mobility Raw Score: 22 CURRENT AM-PAC Mobility [...] community) 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 [...] Assessment: Transfer Assessment: Sit to Stand Transfer Enochs Level: Sit->Stand: independent Skilled Rationale: Cues for increased safety Skilled Intervention/Details: Sit->Stand: x1 EOB Stand to Sit Transfer Enochs Level: Stand->Sit: supervision Assistive Device: Stand->Sit: gait belt, armed chair Skilled Rationale: Verbal cues, Controlled descent for sitting, Cues for increased safety Skilled Intervention/Details: Stand->Sit: cues for hand placement and controlled descent Functional Mobility: Functional Mobility Enochs Level: Functional Mobility/Gait: stand-by assist Assistive Device: [...] Assistance Eatin - No Assistance CURRENT AM-[facility] Activity Raw Score: 21 CURRENT AM-[facility] Activity Functional Limitation/Modifier: 32.79% Currently Impaired in [...] DAY SURGERY MAIN OR KIDNEY TRANSPLANT W/O [place] TRIBE NEPHRECTOMY N/A 04/12/2020 Laterality: N/A; Surgeon: LU [...] by: Mel Norman OT, OTR/L License #: [id number] pager # [phone] 05/20/2022 Upon discontinuation of Acute Care Occupational Therapy Services or patient discharge from the hospital this note represents the current Occupational Therapy Discharge Summary. documented in this encounter [facility] 05-20-2022 Hospital course Narrative [...] during his recent hospital stay at [facility]. As you may know, George [...] Saldana MD Division of Hospital Medicine p: [phone] f: [phone] CONSULTS DURING ADMISSION: IP CONSULT TO SURGERY - UROLOGY IP CONSULT TO NEPHROLOGY - TRANSPLANT (MEDICINE) IP CONSULT TO INTERVENTIONAL RADIOLOGY IP CONSULT TO PHYSICAL THERAPY IP CONSULT TO OCCUPATIONAL THERAPY IP CONSULT TO PHARMACY BEDSIDE DISCHARGE MED DELIVERY IMAGING / PROCEDURES / RESULTS: Should you require further information or copies of results or reports please contact [employer] @ [phone] LABS AT TIME OF DISCHARGE: Lab Results [...] HOME AT DISCHARGE: Zuly Bruno [address] [facility] / [place] [address] MEDICATIONS: Discharge Orders CT ABDOMEN/PELVIS WITHOUT CONTRAST [...] CAPS Generic drug: docusate Follow-up: Zuly Bruno, TRANSFORMER SHOP SUPERVISOR [address] [place] [address] Schedule an appointment as soon as possible for a visit Follow-up appointment with your, primary care physician within 7-10 days, after discharge. [address] [facility] [address] Follow up The department of urology will call you with a follow up appointment. LU Ovalle [address] 11th Floor [facility] [address] Follow up Please make a follow up appointment with Dr. Munoz's office. Upcoming Appointments (up to five)-Some appointments for Medical Center outpatient clinics or diagnostic testing locations are not displayed below Provider Department Dept Phone 06/04/2022 10:40 AM IR CLINIC [facility] Interventional Radiology Clinic [phone] 06/27/2022 1:30 PM [facility] Department of Radiology Arrive at: Arrive to First Floor Registration Desk [phone] 06/27/2022 2:40 PM Ryan Yepez [facility] Arrive at: Arrive to 2nd Floor, Registration [id number] 10/31/2022 1:00 PM Steve Munoz [facility] Trans[facility] [phone] 01/16/2023 9:40 AM TRANSPLANT HEPATOLOGY 3, [facility] Trans[facility] [phone] Associated attestation - Daya Saldana MD - [...] planning including counseling and coordination of care. Daay Saldana MD (Peggy) Division of Hospital Medicine Pager [phone] documented in this encounter [facility] 05-20-2022 Hospital Discharge instructions Giulia [...] be changed by Interventional Radiology. Please call [phone] to schedule this appointment and with any questions or concerns you may have regarding the nephrostomy tube. If you have questions or concerns, please call Interventional Radiology at SOMEONE FROM INTERVENTIONAL RADIOLOGY WILL CALL YOU FOR A FOLLOW UP IN THE CLINIC Giulia Cavazos RN Nurse Coordinator Interventional Radiology Interventional Radiology Outpatient scheduling documented in this encounter [facility] 05-19-2022 Note Formatting of [...] Ongoing Goal: Interdisciplinary Rounds/Family Conf Outcome: Ongoing [facility] 05-19-2022 Note Formatting of this n ote might be different from the original. Discussed with [facility] re: possible urine culture performed at their facility. However, based on urinalysis completed at that time, which was only notable for hematuria, culture was not performed and sample no longer feasible for culture. Liam Julian MD Internal Medicine/Pediatrics, PGY-3 [facility] 05-18-2022 Note Formatting of this n ote might be different from the original. 2002: IHIS message sent to Dr Justyn Wen, regarding patient passing a small kidney stone, about the size of pea. MD notified. Stone left in strainer in pt bathroom. 0: IHIS message sent to Dr Justyn Wen, regarding pt BP 174/77. [facility] 05-18-2022 Note Formatting of [...] outcomes by discharge/transition of care. Outcome: Ongoing [facility] 05-18-2022 Note Formatting of [...] becomes hyponatremic, NS should instead be used. [facility] Work Phone: 05-18-2022 Note Formatting of this n ote might be different from the original. IHIS chat sent to Dr Tray Quintana, regarding pt BP 190/86. Pt complaining of pain at site of neph tube. PRN pain medication given per order parameters. Pt denies any other symptoms at this time. notified and aware. [facility] 05-17-2022 Note Formatting of this n ote might be different from the original. At 0900, I rounded with Dr. Gamez and Dr. Saldana. At that time I checked Mr. Styles's vital signs. His pulse oximeter was low and he was tachypneic. Verbal order at bedside to put nasal cannula on starting at 2liters oxygen and to provide incentive spirometer. [facility] 05-17-2022 Note Formatting of this n ote might be different from the original. Interventional Radiology procedure completed with IR Attending Dr. Heart / Dr. Le of percutaneous right nephrostomy tube placement transplant kidney 10.2 Fr Griffin acosta Pt tolerated procedure with moderate sedation local numbing agent . Transported to inpatient after phase I recovery. Post procedure orders in place. [facility] 05-16-2022 Note Formatting of this n ote might be different from the original. At 1530, I text parisd Kaitlynn Gomez MD that patient has only had 25ml urine output in matias this afternoon. T [facility] 05-16-2022 Note Formatting of [...] with questions. Evan Byrd MD Urology, PGY-2 #8001 [facility] Work Phone: 05-16-2022 Note [...] hospitalization care will be discharge to home. [facility] 05-16-2022 Consult note Associated Order (s): IP CONSULT TO NEPHROLOGY - TRANSPLANT (MEDICINE) I saw George Styles at the [facility] on 05/16/2022. Reason for Consultation: [...] he was given flomax and sent home. [place] better but noticed more pain and decreased [...] best assessment and recommendations. Maxi Pringle MD [facility] Work Phone: 05-16-2022 Consult note Associated Order (s): IP CONSULT TO NEPHROLOGY - TRANSPLANT (MEDICINE) I saw George Styles at the [facility] on 05/16/2022. Reason for Consultation: [...] he was given flomax and sent home. [place] better but noticed more pain and decreased [...] states he went to his local ED [place] and he was put on Flomax and he did improve. Pt states last night he was unable to void with severe right sided abd pain. Pt states nausea and no vomiting or fevers. 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 The tuolumne kidneys are progressively atrophic bilaterally compared to [...] of 06/14/2020 are no longer present. The tuolumne distal right ureter is decompressed beyond this [...] with surgical history for renal graft and tuolumne right urinary drainage, as a discrete ureteroneocystostomy is not identified, and the graft may be draining via a ureteroureterostomy. Urology consultation recommended. 3. The tuolumne kidneys are bilaterally atrophic, with right renal sinus calcifications consistent with nonobstructing right tuolumne renal calculi up to 6 mm. Normal [...] PGY-3, Department of Urologic Surgery Pager #: [phone] Associated attestation - Ryan Yepez MD - [...] continue flomax documented in this encounter [facility] 05-16-2022 Note Formatting of this [...] supported Trust Relationship/Rapport: care explained choices provided [facility] 05-16-2022 Note Formatting of this n ote might be different from the original. On admission to [facility], a dual RN initial assessment of skin condition was performed by Kallie Lorenzana RN and Sheri Arguelles RN. Skin Assessment: WDL Jose Score: 20 LDA Added:N Kallie Lorenzana RN [facility] 05-15-2022 Emergency department Note Report given to Kallie GALLARDO at [facility] 05-15-2022 Emergency department Note Report given to Kallie GALLARDO at [facility] Bladder scan with Dr Villatoro at [...] Thursday and was sent home with [facility]. He went back to that ED [...] DAY SURGERY MAIN OR KIDNEY TRANSPLANT W/O [place] TRIBE NEPHRECTOMY N/A 04/12/2020 Laterality: N/A; Surgeon: LU [...] discussed with Urology as above. Impression: UTI, AFYE Dispo: Admit to medicine This note was dictated with M-Modal. Every effort was made to correct grammatical mistakes but please excuse any incorrections. Matt Schneider MD Resident 05/15/222030 Pt arrives from [facility] with kidney stones. Pt states he had right lower abd pain and right flank pain with blood in his urine since Thursday. Pt states he went to his local ED [place] and he was put on Flomax and he did improve. Pt states last night he was unable to void with severe right sided abd pain. Pt states nausea and no vomiting or fevers. Pt states he went back to [place] ED at 0100 and they placed a matias and CT scan completed and multiple kidney stones noted. [facility] he had liver and kidney transplant in 03/2020. documented in this encounter [facility] 05-15-2022 History and physical note Internal Medicine Admission History & Physical Patient: George Styles, 1970, [id number] Physician: Evan Bennett MD, PGY1, Pager #[phone], GM 4 service Date of face to [...] DAY SURGERY MAIN OR KIDNEY TRANSPLANT W/O [place] TRIBE NEPHRECTOMY N/A 04/12/2020 Laterality: N/A; Surgeon: LU [...] erythema: Skin: No jaundice or rash Neuro: historic interpreter 3-7, 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 Strength grossly [...] dilation of the calyces may represent narrowing/partial [id number] ofthe ureter and mild hydronephrosis or sequela [...] MD Division of Hospital Medicine [phone] [facility] Work Phone: 05-15-2022 History and physical note Internal Medicine Admission History & Physical Patient: George Styles, 1970, [id number] Physician: Evan Bennett MD, PGY1, Pager #[phone], GM 4 service Date of face to [...] urine output; went back to he ED [place]. Matias was placed and the patient [...] DAY SURGERY MAIN OR KIDNEY TRANSPLANT W/O [place] TRIBE NEPHRECTOMY N/A 04/12/2020 Laterality: N/A; Surgeon: LU [...] erythema: Skin: No jaundice or rash Neuro: historic interpreter 3-7, 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 Strength grossly [...] dilation of the calyces may represent narrowing/partial [id number] ofthe ureter and mild hydronephrosis or sequela [...] Medicine [id number] documented in this encounter [facility] 05-15-2022 Emergency department Note Bladder scan with Dr Villatoro at bedside, 14ml noted [facility] 05-15-2022 Consult note Associated Order [...] states he went to his local ED [place] and he was put on Flomax and he did improve. Pt states last night he was unable to void with severe right sided abd pain. Pt states nausea and no vomiting or fevers. 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 The tuolumne kidneys are progressively atrophic bilaterally compared to [...] of 06/14/2020 are no longer present. The tuolumne distal right ureter is decompressed beyond this [...] with surgical history for renal graft and tuolumne right urinary drainage, as a discrete ureteroneocystostomy is not identified, and the graft may be draining via a ureteroureterostomy. Urology consultation recommended. 3. The tuolumne kidneys are bilaterally atrophic, with right renal sinus calcifications consistent with nonobstructing right tuolumne renal calculi up to 6 mm. Normal Assessment Mr. Jensen is a 52 y.o. male who presents [...] PGY-3, Department of Urologic Surgery Pager #: [phone] Associated attestation - Ryan Yepez MD - [...] before surgical intervention --may continue flomax [facility] Work Phone: 05-15-2022 Emergency department Note Advised Dr Schneider concerning no urine output via matias catheter. [facility] 05-15-2022 Physician Emergency department Note ED [...] plan of care. Gian Villatoro MD 05/15/222003 [facility] Work Phone: 05-15-[address] Schneider made aware of only 30 ml urine via matias since arrival to room. [facility] 05-15-2022 Physician Emergency department [...] DAY SURGERY MAIN OR KIDNEY TRANSPLANT W/O [place] TRIBE NEPHRECTOMY N/A 04/12/2020 Laterality: N/A; Surgeon: LU [...] any incorrections. Matt Schneider MD Resident 05/15/222030 [facility] Work Phone: 05-15-2022 Emergency department Note Pt arrives from [facility] with kidney stones. Pt states he had right lower abd pain and right flank pain with blood in his urine since Thursday. Pt states he went to his local ED [place] and he was put on Flomax and he did improve. Pt states last night he was unable to void with severe right sided abd pain. Pt states nausea and no vomiting or fevers. Pt states he went back to [place] ED at 0100 and they placed a matias and CT scan completed and multiple kidney stones noted. [facility] as he had liver and kidney transplant in 03/2020. [facility] 03-14-2022 History of Present [...] Required: No Mailing/Pickup Date: 03/17/2022 Shipping Address: [address] [place] [address] [address] Contact Info: Specialty ([place]) [phone] Jakob [phone] [facility] [phone] Raheem [phone] Bedside Delivery ([facility]) [phone] documented in this encounter [facility] 06-14-2021 History of Present illness Narrative [...] Goal Progress: Satisfactory Contact Info: Specialty ([place]) [phone] [facility] [phone] [facility] [phone] Raheem [phone] Bedside Delivery ([facility]) [phone] [facility] OUTREACH: Call Information: Date [...] Location: Home Signature Required: Yes Shipping Address: [address] [place] [address] Contact Info: Specialty (Yanci) [phone] [facility] [phone] [facility] [phone] Raheem [phone] Bedside Delivery ([facility]) [phone] documented in this encounter [facility] Evaluation + Plan note Future Appointments Appointment Date:11/22/2024 09:00:00 AM Scheduled Provider:JONATHAN Almodovar APRN, [place] X Location:[facility] Appointment Type:URO Office Visit [facility] Evaluation note Diagnosis FAYE (acute kidney injury)- Primary Acute kidney failure, unspecified Hydronephrosis due to obstruction of ureteral orifice Hydronephrosis due to obstruction of ureteral orifice FAYE (acute kidney injury) Acute kidney failure, unspecified documented [facility] Diagnosis Follow-up exam- Primary Unspecified follow-up examination [facility] Diagnosis Immunosuppressed status- Primary Unspecified disorder of immune mechanism Kidney replaced by transplant Liver replaced by transplant Abnormal blood chemistry Other abnormal blood chemistry High risk medication use Encounter for long-term (current) use of other medications Aftercare following organ transplant Liver transplant recipient [facility] Diagnosis Attention to nephrostomy- Primary [facility] Diagnosis Other hydronephrosis- Primary [facility] Diagnosis FAYE (acute kidney injury) Acute kidney failure, unspecified [facility] Diagnosis Other hydronephrosis- Primary -donor kidney transplant recipient Kidney replaced by transplant [facility]* Diagnosis Other hydronephrosis documented [facility]* Diagnosis 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) Encounter for screening for malignant neoplasm of prostate Special screening for malignant neoplasm of prostate documented [facility] this [facility]* Diagnosis Abnormal blood chemistry- Primary Other abnormal blood chemistry Liver transplant recipient Kidney replaced by transplant Immunosuppressed status Unspecified disorder of immune mechanism Aftercare following organ transplant [facility]* Diagnosis Kidney replaced by transplant- Primary documented [facility]* Diagnosis Immunosuppressed status- Primary Unspecified disorder of immune mechanism Kidney replaced by transplant Aftercare following organ transplant High risk medication use Encounter for long-term (current) use of other medications Other general symptoms and signs Abnormal blood chemistry Other abnormal blood chemistry Hypertension secondary to other renal disorders documented [facility] this [facility]* Diagnosis Histoplasmosis- Primary Histoplasmosis, unspecified without [...] Fever, unspecified [facility] Diagnosis Bilateral lower extremity edema- Primary 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) Atherosclerosis 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) Atherosclerosis of aorta Obesity (BMI 30-39.9) DARLENE (obstructive sleep apnea) Obstructive sleep apnea (adult) (pediatric) Tremor Abnormal involuntary movements Immunocompromised (CMS/HCC) Unspecified immunity deficiency Primary hypertension (CMS/HCC) Unspecified essential hypertension Shortness of breath documented in this encounter [facility]* Diagnosis Pleural effusion [...] specified pre-operative examination [facility] Diagnosis Heart failure, diastolic, acute- Primary Acute diastolic heart failure [facility] Diagnosis Liver lesion- Primary Other specified disorders of liver Liver transplant recipient High risk medication use Encounter for long-term (current) use of other medications Therapeutic drug monitoring Encounter for therapeutic drug monitoring Immunocompromised Unspecified immunity deficiency [facility]* Diagnosis Kidney replaced by transplant- Primary [facility]* Diagnosis DARLENE (obstructive sleep apnea)- [...] available for this section [facility] progress note No data available for this section [facility] reason for referral (narrative)* Consultation (Routine) - New Request Specialty Diagnoses / Procedures Referred By Deni edwards Referred To Contact Interventional Radiology Diagnoses Hydronephrosis due to obstruction of ureteral orifice Daya Saldana MD [address] [place] [address] Referral ID Status Reason Start Date Expiration Date V isits Requested Visits Authorized [id number] New Request 05/18/2022 06/12/2023 1 1 * Radiology (Emergency) - New Request Specialty Diagnoses / Procedures Referred By Contac t Referred To Contact Procedures US RENAL TRANSPLANT SCAN Daya Saldana MD [address] [place] [address] Referral ID Status Reason Start Date Expiration Date V isits Requested Visits Authorized [id number] New Request 05/16/2022 06/10/2023 1 1 * Consultation (Routine) - New Request Specialty Diagnoses / Procedures Referred By Contac t Referred To Contact Urology Diagnoses FAYE (acute kidney injury) Ryan Yepez MD [address] [place] [address] [address] [place] [address] Referral ID Status Reason Start Date Expiration Date V isits Requested Visits Authorized [id number] New Request 05/16/2022 06/10/2023 1 1 * MRI/CAT Scan (Routine) - New Request Specialty Diagnoses / Procedures Referred By Deni t Referred To Contact Diagnoses FAYE (acute kidney injury) Procedures CT ABDOMEN/PELVIS WITHOUT CONTRAST CHG CT SCAN,ABDOMENT AND PELVIS,W/O CONTRAST Ryan Yepez MD [address] [place] [address] [address] [place] [address] Referral ID Status Reason Start Date Expiration Date V isits Requested Visits Authorized [id number] New Request 05/16/2022 06/10/2023 1 1 * (Routine) - Pending Review Specialty Diagnoses / Procedures Referred By Contdaniel t Referred To Contact Procedures PLATELET MONITORING PER PROTOCOL Daya Saldana MD [address] [place] [address] Referral ID Status Reason Start Date Expiration Date V isits Requested Visits Authorized [id number] Pending Review 05/15/2022 06/09/2023 1 1 * (Routine) - Pending Review Specialty Diagnoses / Procedures Referred By Contac t Referred To Contact Procedures DVT/VTE RISK ASSESSMENT Daya Saldana MD [address] [place] [address] Referral ID Status Reason Start Date Expiration Date V isits Requested Visits Authorized [id number] Pending Review 05/15/2022 06/09/2023 1 1 * (Routine) Specialty Diagnoses / Procedures Referred By Contac t Referred To Contact Evan Bennett MD [address] [place] [address] Referral ID Status Reason Start Date Expiration Date Visits Re quested Visits Authorized * (Routine) Specialty Diagnoses / Procedures Referred By Contac t Referred To Contact Evan Bennett MD [address] [place] [address] Referral ID Status Reason Start Date Expiration Date Visits Re quested Visits Authorized [facility] for referral (narrative)* Consultation (Routine) - New Request Specialty Diagnoses / Procedures Referred By Contac t Referred To Contact Sleep Medicine Diagnoses Hypoxia Kevin Prince MD [address] [address] Referral ID Status Reason Start Date Expiration Date V isits Requested Visits Authorized [id number] New Request 09/10/2023 10/04/2024 1 1 * MRI/CAT Scan (Routine) - New Request Specialty Diagnoses / Procedures Referred By Contac t Referred To Contact Diagnoses Histoplasmosis Procedures CT CHEST WITHOUT CONTRAST CHG DIAGNOSTIC COMPUTED TOMOGRAPHY THORAX W/O CNTRST Kevin Prince MD [address] [place] [address] Referral ID Status Reason Start Date Expiration Date V isits Requested Visits Authorized [id number] New Request 09/10/2023 10/04/2024 1 1 * Radiology (Routine) - New Request Specialty Diagnoses / Procedures Referred By Contac t Referred To Contact Procedures US RENAL TRANSPLANT SCAN Steve Munoz MBBS [address] [place] [address] Referral ID Status Reason Start Date Expiration Date V isits Requested Visits Authorized [id number] New Request 08/29/2023 09/22/2024 1 1 * (Routine) - New Request Specialty Diagnoses / Procedures Referred By Contac t Referred To Contact Procedures PLATELET MONITORING PER PROTOCOL Steve Munoz MBBS [address] [place] [address] Referral ID Status Reason Start Date Expiration Date V isits Requested Visits Authorized [id number] New Request 08/28/2023 09/21/2024 1 1 * (Routine) - New Request Specialty Diagnoses / Procedures Referred By Contac t Referred To Contact Procedures DVT/VTE RISK ASSESSMENT Steve Munoz MBBS [address] [place] [address] Referral ID Status Reason Start Date Expiration Date V isits Requested Visits Authorized [id number] New Request 08/28/2023 09/21/2024 1 1 [facility] Instructions * Patient Instructions - EnriquenicolasaChristin gregoryDEEP-TRANSFORMER SHOP SUPERVISOR - 10/19/2018 9:21 AM EST You should take an extra dose of the lactulose as needed so that you are having 3-4 bowel movementsdaily. You should start the chemical dependency counseling as soon as possible. If you have questions, call the transplant long term care social worker Fidelina Pierson. in this encounter* Patient Instructions - Sophie Cary RN - 10/12/2018 11:09 AM EST You have been seen in the pre-transplant evaluation clinic by Dr. Restrepo and Sophie Cary. Sophie Cary is your pre-medical staff services coordinator she can be reached at [phone] at any time for questions during the pre-transplant process. Your evaluation is complete pendin. Abdominal ultrasound. 2. 6 minute walk test. 3. Cardiology evaluation. Additionally, your owner oral surgeon will recommend testing to screen for coronary [...] after you have satisfied requirements dictated by [employer] company. Once your testing is complete, we [...] ___ Other Name MRN * Christin Elizabeth, ENTRY ENGINEER-[facility] - 10/19/2018 9:00 AM EST Formatting of this note may be different from the original. History of Present Illness: Chief Complaint Patient presents with Follow-up Cirrhosis George Styles is a 48 y.o. male who presents to the [facility] Gastroenter[facility] today regarding his diagnosis/chief complaint(s) of Cirrhosis secondary to ETOH, with ESRD follows with Dr. Orr. Currently undergoing evaluation for liver/kidney transplant. Has been seen in transplant clinic for eval. Still undergoing pre testing. Diagnosed in April 2018. Last drink was immediately prior to hospital admission in [place] for ACLF. Hospital course notable for ARF [...] kidney transplant evaluation. Pt was AOx3. Transplant Well Logging Mud Analysis Captain role/function was explained and reviewed. The patient [...] and resources were offered. Pt identifies with HOAHAOISM adventism. Pt confirms being a [place] Citizen. Pt.'s [...] has valid license, does not regularly drive (TRANSFORMER SHOP SUPERVISOR recommends that he not to drive). He [...] related disease etoh cirrohosis April dx in [facility] for thirty days. Pt reports [...] as well as referred him to pre medical staff services coordinator. Pt and support demonstrated moderate [...] Patient's brother David is a self employed salesperson surgical appliances. Additional support includes his other brother Tyshawn and his Mary live fifteen minutes away. 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 He confirms being comfortable asking for help. [...] in 2010, he was employed by the [employer]. He has access to SSDI payment (SSDI starts in November) in regards to financial means pre/ post-transplant. Pt confirms (meeting bills currently, ) being able to meet daily needs. Patient's brother asking for additional information on community resources, food stamps and Heap. Refer him to pt.'s dialysis center and the [facility]. Hereports access to Medicaid. Pt. denies [...] ordered treatment after a DUI charge [facility] in [place], court ordered treatment in 2001 and in [...] by patient from his primary medical provider- TRANSFORMER SHOP SUPERVISOR patient was noted as attending an alcohol [...] new visit Date of service: 10/12/2018 -Referring auto body mechanic for today's consult: -Primary Care Provider: Zuly Bruno CC: Chief Complaint Patient presents with Liver Recipient Evaluation History of Present Illness George Styles is a 48 y.o. male who presents to the [facility] liver transplant surgery clinic today for [...] processes progressing rapidly Unknown * Elisa Tiwari, NAILER OPERATOR - 10/12/2018 10:00 AM EST Timed up and go 9.9 seconds Product Mgr Left 52.8 pounds Right 44.9 pounds Waist circ 38.5 inches * Sophie Cary, RN - 10/12/2018 10:00 AM EST Formatting of this note may be different from the original. Patient George Styles ([id number]), accompanied by his brother, was seen on [...] any further questions. Sophie GUERINN, RN Liver Analysis Consultant Etiology: ETOH HCC: No ETOH: Yes Last [...] Orr MD [address] [address] Status Reason Specialty Diagnoses / Procedures Referred By Contact Referred To Contact New Request Diagnoses Cirrhosis of liver with ascites, unspecified hepatic cirrhosis type Procedures US ABDOMEN RUQ/LIVER/GB Yovani Orr MD [address] [address] Specialty Diagnoses / Procedures Referred By Contac t Referred To Contact Diagnoses FAYE (acute kidney injury) Procedures CT ABDOMEN/PELVIS WITHOUT CONTRAST CHG CT SCAN,ABDOMENT AND PELVIS,W/O CONTRAST Central Scheduling [facility] [place] [address] Referral ID Status Reason Start Date Expiration Date V isits Requested Visits Authorized [id number] Pending Review 05/16/2022 06/10/2023 1 1 Specialty Diagnoses / Procedures Referred By Contac t Referred To Contact Diagnoses Other hydronephrosis Procedures FLUORO IMAGING FOR UROLOGY Ryan Yepez MD [address] [facility] [address] [place] [address] Referral ID Status Reason Start Date Expiration Date V isits Requested Visits Authorized [id number] New Request 07/07/2022 08/01/2023 1 1 Specialty Diagnoses / Procedures Referred By Contac t Referred To Contact Procedures DIRECT ADMIT REQUEST Steve Munoz MBBS [address] [place] [address] Referral ID Status Reason Start Date Expiration Date V isits Requested Visits Authorized [id number] New Request 08/28/2023 09/21/2024 1 1 Specialty Diagnoses / Procedures Referred By Contac t Referred To Contact Radiology Diagnoses DARLENE (obstructive sleep apnea) Primary hypertension (CMS/HCC) Bilateral lower extremity edema Shortness of breath Procedures Echocardiogram 2D complete Zuly Bruno NP [address] [place] [address] Referral ID Status Reason Start Date Expiration Date Visits Requested Visits Authorized [id number] Incomplete Perform Procedure 01/06/2024 07/04/2024 1 1 Specialty Diagnoses / Procedures Referred By Contac t Referred To Contact Procedures US IMAGING REGIONAL ANESTHESIA Kehinde Gutierrez MD [address] [place] [address] Referral ID Status Reason Start Date Expiration Date V isits Requested Visits Authorized [id number] New Request 01/22/2024 02/15/2025 1 1 Specialty Diagnoses / Procedures Referred By Contac t Referred To Contact Cardiovascular Medicine Diagnoses Heart failure, diastolic, acute Kelvin Pacheco MD, JOSHBS [address] [place] [id number] Referral ID Status Reason Start Date Expiration Date V isits Requested Visits Authorized [id number] New Request 01/20/2024 02/13/2025 1 1 Specialty Diagnoses / Procedures Referred By Contac t Referred To Contact Procedures US ABDOMEN LIVER DOPPLER US ABDOMEN LIVER TRANSPLANT DOPPLER Timothy Joseph MD [address] [facility] [address] [place] [address] Referral ID Status Reason Start Date Expiration Date V isits Requested Visits Authorized [id number] New Request 01/16/2024 02/09/2025 1 1 Specialty Diagnoses / Procedures Referred By Contac t Referred To Contact Procedures DVT/VTE RISK ASSESSMENT Kelvin Pacheco MD, MBBS [address] [place] [address] Referral ID Status Reason Start Date Expiration Date V isits Requested Visits Authorized [id number] New Request 01/16/2024 02/09/2025 1 1 Specialty Diagnoses / Procedures Referred By Contac t Referred To Contact Procedures PLATELET MONITORING PER PROTOCOL Kelvin Pacheco MD, MBBS [address] [place], [place] [address] Referral ID Status Reason Start Date Expiration Date V isits Requested Visits Authorized [id number] New Request 01/16/2024 02/09/2025 1 1 Referral ID Status Reason Start Date Expiration Date V isits Requested Visits Authorized [id number] New Request 01/16/2024 02/09/2025 1 1 Specialty Diagnoses / Procedures Referred By Contac t Referred To Contact Procedures ECG Kelvin Pacheco MD, MBBS [address] [place] [address] Referral ID Status Reason Start Date Expiration Date V isits Requested Visits Authorized [id number] New Request 01/16/2024 02/09/2025 1 1 Specialty Diagnoses / Procedures Referred By Contac t Referred To Contact Diagnoses Liver lesion Procedures MRI ABDOMEN WITH AND WITHOUT CONTRAST CHG MRI ABDOMEN W/O & W/CONTRAST MATERIAL Smithcarl Daisha Feliz, DO [address] [place] [address] Referral ID Status Reason Start Date Expiration Date V isits Requested Visits Authorized [id number] New Request 06/17/2024 07/12/2025 1 1 Advance Directives Documents on File Type Date Recorded Patient Practice Management Consultant Expl anation Advance Directives and Living Will Power of Safe And Vault Mechanic Latest Code Status on File Code [...] Orr MD [address] [address] Status Reason Specialty Diagnoses / Procedures Referre d By Contact Referred To Contact Denied Diagnoses Alcoholic cirrhosis, unspecified whether ascites present Pre-transplant evaluation for liver transplant Procedures MRI ABDOMEN WITH CONTRAST DC MRI, ABDOMEN W/CONTRAST Yovani Orr MD [address] [address] Reason Comments Liver Recipient Evaluation Status Reason Specialty Diagnoses / Procedures Referred By Contact Referred To Contact New Request Transplant / Transplant Surgery Procedures PRE NEW PATIENT Yovani Orr MD [address] [address] Alfredito Restrepo MD [address] [place] [address] Reason Comments Reschedule Reason Comments Outside Medical Records Request Reason Comments Social Work Follow-up Reason Comments Kidney Stone Specialty Diagnoses / Procedures Referred By Contac t Referred To Contact Diagnoses Obstructing kidney stone, s/p kidney transplant 2019 Daya Saldana MD [address] [place] [address] [facility] [address] [place] [address] Referral ID Status Reason Start Date Expiration Date Visits Re quested Visits Authorized [id number] 1 1 Reason Comments Follow-up Reason Comments Kidney Recipient Follow-up Liver Recipient Follow-up Reason Comments Consult Reason Comments New Patient Hospital follow up Specialty Diagnoses / Procedures Referred By Contac t Referred To Contact Urology Diagnoses hosp fu with [address] prior Procedures NEW TO DOC/RET PATIENT Zuly Bruno CNP [address] [place] [address] Ryan Yepez MD [address] [facility] [address] [place] [address] Referral ID Status Reason Start Date Expiration Date Visits Re quested Visits Authorized [id number] Closed 06/27/2022 07/22/2023 1 1 Specialty Diagnoses / Procedures Referred By Contac t Referred To Contact Diagnoses FAYE (acute kidney injury) Procedures CT ABDOMEN/PELVIS WITHOUT CONTRAST CHG CT SCAN,ABDOMENT AND PELVIS,W/O CONTRAST Central Scheduling [address] [place] [address] Referral ID Status Reason Start Date Expiration Date V isits Requested Visits Authorized [id number] Pending Review 05/16/2022 06/10/2023 1 1 Reason Comments Follow-up Specialty Diagnoses / Procedures Referred By Contac t Referred To Contact Urology Diagnoses 1 week fu post NT clamp Procedures RETURN PATIENT Zuly Bruno CNP [address] [place] [address] Ryan Yepez MD [address] [facility] [address] [place] [address] Referral ID Status Reason Start Date Expiration Date Visits Requested Visits Authorized [id number] Authorized - 07/07/2022 08/01/2023 2 2 Specialty Diagnoses / Procedures Referred By Contac t Referred To Contact Diagnoses Other hydronephrosis Procedures FLUORO IMAGING FOR UROLOGY Ryan Yepez MD [address] [facility] [address] [place] [address] Referral ID Status Reason Start Date Expiration Date V isits Requested Visits Authorized [id number] New Request 07/07/2022 08/01/2023 1 1 Specialty Diagnoses / Procedures Referred By Contac t Referred To Contact Urology Diagnoses 1 week fu post NT clamp Procedures RETURN PATIENT Zuly Bruno, TRANSFORMER SHOP SUPERVISOR [address] [place] [address] Ryan Yepez MD [address] [facility] [address] [place] [address] Referral ID Status Reason Start Date Expiration Date Visits Re quested Visits Authorized [id number] Closed 07/07/2022 08/01/2023 2 2 Reason Comments Liver Recipient Follow-up Reason Comments Kidney Recipient Follow-up Reason Comments Kidney Recipient Follow-up Specialty Diagnoses / Procedures Referred By Contac t Referred To Contact Diagnoses Kidney replaced by transplant Steve Munoz MBBS [address] [place] [address] [facility] [address] [place] [address] Referral ID Status Reason Start Date Expiration Date Visits Re quested Visits Authorized [id number] 1 1 Specialty Diagnoses / Procedures Referred By Contac t Referred To Contact Diagnoses Pleural effusion on right PNEUMONIA- HX LIVER AND KIDNEY TRANSPLANT Kevin Prince MD [address] [place] [address] [facility] [address] [place] [address] Referral ID Status Reason Start Date Expiration Date Visits Re quested Visits Authorized [id number] 1 1 Reason Comments New Patient Specialty Diagnoses / Procedures Referred By Contac t Referred To Contact Cardiovascular Medicine Diagnoses Heart failure, diastolic, acute Kelvin Pacheco MD, MBBS [address] [place] [address] Referral ID Status Reason Start Date Expiration Date Visits Requested Visits Authorized [id number] Authorized - 01/20/2024 02/13/2025 5 5 Reason [...] AUTHOR'S ORGANIZ ATION 01/27/2021 [facility] DATE CREATED AUTHOR AUTHOR'S ORGANIZ ATION 05/11/2023 [facility] DATE CREATED AUTHOR AUTHOR'S ORGANIZ ATION 06/03/2024 [facility] DATE CREATED AUTHOR AUTHOR'S ORGANIZ ATION 08/25/2024 [facility] dical Specialists [facility] DATE CREATED AUTHOR AUTHOR'S ORGANIZ ATION 09/09/2024 [facility] DATE CREATED AUTHOR AUTHOR'S ORGANIZ ATION 09/10/[address] [facility] Care Teams (unrecognized sec tion and content) Oven Heater Relationship Specialty Start Date End Date Zuly Bruno CNP PCP - General 07/19/18 [place], [facility] [facility] [address] [facility] [address] [place] [address] Pharmacist Pharmacist 05/16/20 Angel Carpio [facility]ly [facility],PharmD Pharmacist Pharmacist 05/16/20 Te Leigh [facility],PharmD Pharmacist Pharmacist 01/09/21 Oven Heater Relationship Specialty Start Date End Date Zuly Bruno CNP PCP - General 07/19/18 Comfort Rivera, [address] [place] [address] Pharmacist Pharmacist 05/16/20 Angel Carpio [facility],PharmD Pharmacist Pharmacist 05/16/20 Te Leigh [facility],PharmD Pharmacist Pharmacist 01/09/21 Oven Heater Relationship Specialty Start Date End Date Zuly Bruno CNP PCP - General 07/19/18 Oven Heater Relationship Specialty Start Date End Date Zuly Bruno CNP PCP - General 07/19/18 Oven Heater Relationship Specialty Start Date End Date Zuly Bruno CNP PCP - General 07/19/18 Oven Heater Relationship Specialty Start Date End Date Zuly Bruno CNP PCP - General 07/19/18 Oven Heater Relationship Specialty Start Date End Date Zuly Bruno CNP PCP - General 07/19/18 Oven Heater Relationship Specialty Start Date End Date Zuly Bruno CNP PCP - General 07/19/18 Oven Heater Relationship Specialty Start Date End Date Zuly Bruno CNP PCP - General 07/19/18 Oven Heater Relationship Specialty Start Date End Date Zuly Bruno CNP PCP - General 07/19/18 Oven Heater Relationship Specialty Start Date End Date Zuly Bruno CNP PCP - General 07/19/18 Oven Heater Relationship Specialty Start Date End Date Zuly Bruno CNP PCP - General 07/19/18 Oven Heater Relationship Specialty Start Date End Date Zuly Bruno CNP PCP - General 07/19/18 Oven Heater Relationship Specialty Start Date End Date Zuly Bruno CNP PCP - General 07/19/18 Oven Heater Relationship Specialty Start Date End Date Zuly Bruno CNP PCP - General 07/19/18 Oven Heater Relationship Specialty Start Date End Date Zuly Bruno CNP PCP - General 07/19/18 Oven Heater Relationship Specialty Start Date End Date BrianlatishaZuly tipton CNP PCP - General 07/19/18 Evan White DO [address] [place] [address] Infectious Disease Infectious Disease 09/09/23 Oven Heater Relationship Specialty Start Date End Date Lexiesylvesterlatishasaeed Zuly, ROB PCP - General 07/19/18 Evan White DO [facility] [place] [address] Infectious Disease Infectious Disease 09/09/23 Oven Heater Relationship Specialty Start Date End Date Zuly Bruno CNP PCP - General 07/19/18 Evan White DO [facility] [place] [address] Infectious Disease Infectious Disease 09/09/23 Oven Heater Relationship Specialty Start Date End Date Momo Verdugo MD PCP - General Family Medicine 05/21/23 Oven Heater Relationship Specialty Start Date End Date Momo Verdugo MD PCP - General Family Medicine 05/21/23 Oven Heater Relationship Specialty Start Date End Date Momo Verdugo MD PCP - General Family Medicine 05/21/23 Oven Heater Relationship Specialty Start Date End Date Zuly Bruno CNP PCP - General 07/19/18 Evan White DO [facility] [place] [address] Infectious Disease Infectious Disease 09/09/23 Oven Heater Relationship Specialty Start Date End Date Zuly Bruno CNP PCP - General 07/19/18 Evan White DO [facility] [place] [address] Infectious Disease Infectious Disease 09/09/23 Oven Heater Relationship Specialty Start Date End Date Zuly Bruno CNP PCP - General 07/19/18 Evan White DO [facility] [place] [address] Infectious Disease Infectious Disease 09/09/23 Oven Heater Relationship Specialty Start Date End Date Zuly Bruno CNP PCP - General 07/19/18 Evan White DO [address] [place] [address] Infectious Disease Infectious Disease 09/09/23 Oven Heater Relationship Specialty Start Date End Date Zuly Bruno CNP PCP - General 07/19/18 Evan White DO [address] [place] [address] Infectious Disease Infectious Disease 09/09/23 Oven Heater Relationship Specialty Start Date End Date Zuly Bruno CNP PCP - General 07/19/18 Oven Heater Relationship Specialty Start Date End Date Zuly Bruno CNP PCP - General 07/19/18 Oven Heater Relationship Specialty Start Date End Date uZly Bruno CNP PCP - General 07/19/18 Oven Heater Relationship Specialty Start Date End Date Zuly Bruno CNP PCP - General 07/19/18 Oven Heater Relationship Specialty Start Date End Date Zuly Bruno CNP PCP - General 07/19/18 Oven Heater Relationship Specialty Start Date End Date Zuly Bruno CNP PCP - General 07/19/18 Oven Heater Relationship Specialty Start Date End Date Zuly Bruno CNP PCP - General 07/19/18 Oven Heater Relationship Specialty Start Date End Date Momo Verdugo MD [address] [place] [phone] PCP - General Family Medicine 02/11/24 Zuly Bruno NP [address] [place] [phone] Nurse Practitioner Family Medicine 02/11/24 Kasandra Thomas DO [address] [place] [address] Referring Physician Neurology 02/17/24 Oven Heater Relationship Specialty Start Date End Date Momo Verdugo MD [address] [place] [id number] PCP - General Family Medicine 02/11/24 Zuly Bruno NP [address] [place] [phone] Nurse Practitioner Family Medicine 02/11/24 Kasandra Thomas DO [address] [place] [address] Referring Physician Neurology 02/17/24 Oven Heater Relationship Specialty Start Date End Date Momo Verdugo MD [address] [place] [phone] PCP - General Family Medicine 02/11/24 Zuly Bruno NP [address] [place] [phone] Nurse Practitioner Family Medicine 02/11/24 Kasandra Thomas DO [address] [place], [place] [id number] Referring Physician Neurology 02/17/24 Scheduled Active and Recently Administ ered Medications (unrecognized section and content) Medication Order 05/18/2022 05/19/2022 05/20/2022 allopurinol (ZYLOPRIM) tablet 100 mg 100 mg, Oral, DAILY, First dose (after last modification) on Thu05/17/22 at 0900, Until Discontinued 806 (Given - Provider: Mel Hampton RN) 804 (Given - Provider: Josey Braun RN) 930 (Given - Provider: Leon Cook RN) amLODIPine (NORVASC) tablet 5 mg 5 mg, Oral, DAILY, First dose on Thu05/16/22 at 0900, Until Discontinued 806 (Given - Provider: Mel Hampton RN) 804 (Given - Provider: Josey Braun RN) 0932 [...] Braun RN)1128 (Stopped - Provider: Josey Braun, RN) Magnesium Sulfate 4 g in sterile [...] 05/18/22 at 1715 1735 (Given - Provider: eMl Hampton RN) sodium-potassium phosphate (K-PHOS NEUTRAL) tablet [...] RN) 08 (Given - Provider: Josey Braun RN)205 (Given [...] - Provider: Tati Ahmadi RN) 1053 ([facility] Hold - Provider: Automatic Transfer - Reason: Transfer to a Procedural area)141 ([facility] Unhold - Provider: Automatic Transfer)2008 [...] (Given - Provider: Terra Heart RN)1053 ([facility] Hold - Provider: Automatic Transfer - Reason: Transfer to a Procedural area)141 ([facility] Unhold - Provider: Automatic Transfer)2008 (Given - Provider: Tati Ahmadi, SAMI) 09 (Given - Provider: Terra Heart, SAMI) Magnesium [...] Reason: Transfer to a Procedural area)1414 ([facility] Unhold - Provider: Automatic Transfer) 0923 (Given - Provider: Terra Heart RN) Tamsulosin HCl (FLOMAX) capsule 0.4 mg 0.4 mg, Oral, DAILY, First dose on 01/16/24 at 0900, Until Discontinued, Slow release product. Do not chew or crush 0842 (Given - Provider: Erica Gudino RN) 0841 (Given - Provider: Terra Heart RN)1053 ([facility] Hold - Provider: Automatic Transfer - Reason: Transfer to a Procedural area)1414 ([facility] Unhold - Provider: Automatic Transfer) [...] (Given - Provider: Terra Heart RN)1053 ([facility] Hold - Provider: Automatic Transfer - Reason: Transfer to a Procedural area)1414 ([facility] Unhold - Provider: Automatic Transfer) [...] all sources in 24 hours. 1053 ([facility] Hold - Provider: Automatic Transfer - Reason: Transfer to a Procedural area)1414 ([facility] Unhold - Provider: Automatic Transfer)1806 [...] mg and Simethicone 20 mg) 1053 ([facility] Hold - Provider: Automatic Transfer - Reason: Transfer to a Procedural area)1414 ([facility] Unhold - Provider: Automatic Transfer) guaiFENesin (ROBITUSSIN) oral solution 400 mg 400 mg, Oral, EVERY 6 HOURS NEEDED, Starting on 01/16/24 at 0202, Until 01/23/24 at 1752, Cough, Congestion 1053 ([facility] Hold - Provider: Automatic Transfer - Reason: Transfer to a Procedural area)1414 ([facility] Unhold - Provider: Automatic Transfer) [...] Until 01/23/24 at 1752, Insomnia 1053 ([facility] Hold - Provider: Automatic Transfer - Reason: Transfer to a Procedural area)1414 ([facility] Unhold - Provider: Automatic Transfer)2355 (Given - Provider: Tati Ahmadi, SAMI) Ondansetron (ZOFRAN) tablet 4 mg(Linked Group 1) 4 mg, Oral, EVERY 6 HOURS NEEDED, Starting on 01/16/24 at 0202, Until 01/23/24 at 1752, Nausea / Vomiting, 1st line for Nausea/Vomiting 1053 ([facility] Hold - Provider: Automatic Transfer - Reason: Transfer to a Procedural area)1414 ([facility] Unhold - Provider: Automatic Transfer)1809 (See Alternative - Provider: Trera Heart, SAMI) 0430 (See Alternative - Provider: [...] Ahmadi, SAMI) 0916 (Given - Provider: Terra Heart, SAMI) Sodium chloride 0.9% IV solution 250 mL [...] intermittent or piggy back medication. 1053 ([facility] Hold - Provider: Automatic Transfer - Reason: Transfer to a Procedural area)1414 ([facility] Unhold - Provider: Automatic Transfer) [...] BE BASED ON THE PRIMARY CLINICAL RECORDS. [facility] provides no warranty or guarantee of the accuracy or completeness of information in this document.
[2024-10-24 08:43] LABS: Eosinophils Absolute Auto 0.1 10^3/uL (0.0-0.7); Eosinophils Percent Auto 2.9 % (0.9-7.0); Hematocrit 49.9 % (42.0-54.0); Hemoglobin 16.5 g/dL (14.0-18.0); Immature Granulocytes Abs Auto 0.01 10^3/uL (0.00-0.03); Immature Granulocytes Pct Auto 0.2 % (0.0-0.5); Lymphocytes Absolute Auto 1.3 10^3/uL (1.2-3.8); Lymphocytes Percent Auto 30.6 % (20.5-60.0); Mean Corpuscular HGB Conc 33.1 g/dL (29.9-35.2); Mean Corpuscular Hemoglobin 29.2 pg (25.9-34.0); Mean Corpuscular Volume 88.3 fL (80.0-94.0); Mean Platelet Volume 9.9 fL (9.5-13.5); Monocytes Absolute Auto 0.4 10^3/uL (0.3-0.8); Monocytes Percent Auto 8.8 % (1.7-12.0); Neutrophils Absolute Auto 2.4 10^3/uL (1.4-6.5); Neutrophils Percent Auto 56.5 % (43.0-75.0); Platelet Count 245 10^3/uL (150-450); Red Blood Count 5.65 10^6/uL (4.70-6.10); Red Cell Distribution Width 12.3 % (11.0-15.0); White Blood Count 4.2 10^3/uL (4.0-11.0)
[2024-10-24 09:32] LABS: Alanine Aminotransferase 20 U/L (16-63); Albumin Level 4.1 g/dL (3.4-5.0); Alkaline Phosphatase 105 U/L (46-116); Anion Gap 15.4; Aspartate Amino Transferase 18 U/L (15-37); BUN Creatinine Ratio 11.7; Bilirubin Direct 0.2 mg/dL (0.0-0.2); Bilirubin Total 0.9 mg/dL (0.2-1.0); Carbon Dioxide 26.5 mmol/L (21.0-32.0); Chloride 106 mmol/L (98-107); Estimated GFR (African America >60 (>=60 mL/min/1.73m^2); Estimated GFR (Non-African Ame 59 (>=60 mL/min/1.73m^2); Gamma Glutamyl Transpeptidase 23 U/L (15-85); Glucose 111 mg/dL (74-106); Magnesium 1.9 mg/dL (1.8-2.4); Phosphorus 2.8 mg/dL (2.6-4.7); Potassium 3.9 mmol/L (3.5-5.1); Sodium 144 mmol/L (136-145)
[2024-10-26 11:09] LABS: Tacrolimus (FK506), Blood 5.2 ng/mL (2.0-20.0)
== END 2024-10-24 06:57 | disposition home or self-care (01) ==
LOC: LAB 06:58
PROVIDERS: PCP Nurse Practitioner
DX: Z51.81 Encounter for therapeutic drug level monitoring (principal); Z94.0 Kidney transplant status; Z94.4 Liver transplant status; Z48.298 Encounter for aftercare following other organ transplant
CPT/HCPCS: 36415; 80048; 80197; 82042; 82247; 82248; 82977; 83735; 84075; 84100; 84450; 84460; 85025; 86612; 87385

== ENCOUNTER 2024-11-07 06:39 | Outpatient (OUT) | payer MEDICARE, MEDICAID, SELFPAY ==
[2024-11-07 07:13] LABS: Basophils Percent Auto 0.5 % (0.2-2.0); Eosinophils Absolute Auto 0.1 10^3/uL (0.0-0.7); Eosinophils Percent Auto 2.6 % (0.9-7.0); Hematocrit 47.7 % (42.0-54.0); Hemoglobin 15.7 g/dL (14.0-18.0); Immature Granulocytes Abs Auto 0.01 10^3/uL (0.00-0.03); Immature Granulocytes Pct Auto 0.2 % (0.0-0.5); Lymphocytes Absolute Auto 1.5 10^3/uL (1.2-3.8); Mean Corpuscular HGB Conc 32.9 g/dL (29.9-35.2); Mean Corpuscular Hemoglobin 28.9 pg (25.9-34.0); Mean Corpuscular Volume 87.8 fL (80.0-94.0); Mean Platelet Volume 9.3 fL (9.5-13.5); Monocytes Absolute Auto 0.3 10^3/uL (0.3-0.8); Monocytes Percent Auto 7.7 % (1.7-12.0); Neutrophils Absolute Auto 2.2 10^3/uL (1.4-6.5); Platelet Count 211 10^3/uL (150-450); Red Blood Count 5.43 10^6/uL (4.70-6.10); Red Cell Distribution Width 12.2 % (11.0-15.0); White Blood Count 4.2 10^3/uL (4.0-11.0)
[2024-11-07 07:20] LABS: Alanine Aminotransferase 19 U/L (16-63); Albumin Level 3.9 g/dL (3.4-5.0); Alkaline Phosphatase 89 U/L (46-116); Anion Gap 12.9; Aspartate Amino Transferase 19 U/L (15-37); BUN Creatinine Ratio 11.9; Bilirubin Direct 0.2 mg/dL (0.0-0.2); Bilirubin Total 0.9 mg/dL (0.2-1.0); Calcium 9.3 mg/dL (8.5-10.1); Carbon Dioxide 25.3 mmol/L (21.0-32.0); Chloride 108 mmol/L (98-107); Estimated GFR (African America >60 (>=60 mL/min/1.73m^2); Estimated GFR (Non-African Ame 60 (>=60 mL/min/1.73m^2); Gamma Glutamyl Transpeptidase 23 U/L (15-85); Glucose 110 mg/dL (74-106); Magnesium 1.9 mg/dL (1.8-2.4); Phosphorus 2.5 mg/dL (2.6-4.7); Potassium 4.2 mmol/L (3.5-5.1); Sodium 142 mmol/L (136-145)
[2024-11-09 11:10] LABS: Tacrolimus (FK506), Blood 6.1 ng/mL (2.0-20.0)
== END 2024-11-07 06:40 | disposition home or self-care (01) ==
LOC: LAB 06:43
PROVIDERS: PCP Nurse Practitioner
DX: Z51.81 Encounter for therapeutic drug level monitoring (principal); Z94.4 Liver transplant status; Z94.0 Kidney transplant status; Z48.298 Encounter for aftercare following other organ transplant; Z79.899 Other long term (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
CPT/HCPCS: 36415; 80048; 80197; 82042; 82247; 82248; 82977; 83735; 84075; 84100; 84450; 84460; 85025; 86612; 87385

== ENCOUNTER 2024-11-21 06:32 | Outpatient (OUT) | payer MEDICARE, MEDICAID, SELFPAY ==
--- OUTSIDE RECORDS SUMMARY | 2024-11-21 06:40 | XMS_ITS | CCD ---
Author Organization [facility] Care Team Providers Care Electrical Research Engineer Name Role Phone Kiana Zuly Unavailable Unavailable [...] Unavailable AICHHOLZ, ZULY Primary Care Unavailable Aichholz [facility], Zuly Primary Care Provider Miguel [facility] Shirin [facility],PharmD, Angel Unavailable Unavailab makayla Leigh [facility],PharmD, Te Unavailable Unavai lable Aicholz [facility], Zuly Primary Care Provider [phone] CRISTINA, DR BURCH Admitting Unavailable MISC, DR BURCH Consulting Unavailable AICHHOLZ, EXPEDITER CLERK ZULY Primary Care Unavailable MISC, DR BURCH Attending Unavailable MISC, DR BURCH Admitting Unavailable MISC, DR BURCH Consulting Unavailable AICHHOLZ, EXPEDITER CLERK ZULY Primary Care Unavailable MISC, DR BURCH Attending Unavailable ARCELIA PIZARRO Consulting Unavailable KE BURNHAM Attending Unavailable EK BURNHAM Admitting Unavailable BARBARA, DR MÓNICA Munoz Consulting Unavailable AICHHOLZ, EXPEDITER CLERK ZULY Primary Care Unavailable KE BURNHAM Consulting Unavailable MISC, DR BURCH Consulting Unavailable MISC, DR BURCH Attending Unavailable AICHHOLZ, EXPEDITER CLERK ZULY Primary Care Unavailable MISC, DR BURCH Admitting Unavailable MISC, DR DOCTOR Consulting Unavailable MISC, DOCTOR Attending Unavailable AICHHOLZ, EXPEDITER CLERK ZULY Primary Care Unavailable MISC, DR BURCH Admitting Unavailable MISC, DR DOCTOR Consulting Unavailable AICHHOLZ, EXPEDITER CLERK ZULY Primary Care Unavailable MISC, DOCTOR Admitting Unavailable MISC, DR DOCTOR Attending Unavailable MELINDA, DR GEORGE Munoz Consulting Unavailable MELINDA, DR GEORGE Munoz Attending Unavailable AICHHOLZ, EXPEDITER CLERK ZULY Primary Care Unavailable MELINDA, DR GEORGE Munoz Admitting Unavailable NAUN ., KE Consulting Unavailable MIRANDA, LYNDSAY Consulting Unavailable MELINDA, DR GEORGE Munoz Consulting Unavailable NAUN ., KE Attending Unavailable NAUN ., KE Admitting Unavailable AICHHOLZ, EXPEDITER CLERK ZULY Primary Care Unavailable NAUN ., KE Consulting Unavailable GIAN HERRING Consulting Unavailable AICHHOLZ, EXPEDITER CLERK ZULY Consulting Unavailable AICHHOLZ, EXPEDITER CLERK ZULY Attending Unavailable AICHHOLZ, EXPEDITER CLERK ZULY Admitting Unavailable AICHHOLZ, EXPEDITER CLERK ZULY Primary Care Unavailable MISC, DR BURCH Consulting Unavailable MISC, DOCTOR Admitting Unavailable MISC, DOCTOR Attending Unavailable AICHHOLZ, EXPEDITER CLERK ZULY Primary Care Unavailable MISC, DR DOCTOR Consulting Unavailable MISC, DR DOCTOR Attending Unavailable MISC, DR DOCTOR Admitting Unavailable AICHHOLZ, EXPEDITER CLERK ZULY Primary Care Unavailable MISC, DR BURCH Admitting Unavailable MISC, DOCTOR Consulting Unavailable MISC, DOCTOR Attending Unavailable AICHHOLZ, EXPEDITER CLERK ZULY Primary Care Unavailable MISC, DOCTOR Admitting Unavailable MISC, DR DOCTOR Consulting Unavailable AICHHOLZ, EXPEDITER CLERK ZULY Primary Care Unavailable MISC, DR DOCTOR Attending Unavailable MISC, DOCTOR Admitting Unavailable MISC, DR DOCTOR Consulting Unavailable AICHHOLZ, EXPEDITER CLERK ZULY Primary Care Unavailable MISC, DR DOCTOR Attending Unavailable AICHHOLZ, EXPEDITER CLERK ZULY Consulting Unavailable AICHHOLZ, EXPEDITER CLERK ZULY Attending Unavailable AICHHOLZ, EXPEDITER CLERK ZULY Admitting Unavailable AICHHOLZ, EXPEDITER CLERK ZULY Primary Care Unavailable DR MÓNICA JIMENEZ Consulting Unavailable Aichholz EXPEDITER CLERK, Zuly Primary Care Provider Ann White DOs A Unavailable Aichholz EXPEDITER CLERK, Zuly Primary Care Provider Ann White DOs A Unavailable [phone] Momo Verdugo MD Primary Care Provider Aichholz EXPEDITER CLERK, Zuly Primary Care Provider MIGUEL CARDONA Attending Unavailable CANDIE ALMAGUER Attending Unavailable KELVIN [...] Care Unavailable HAKEEM ALAMO A Attending Unavailable EVAN WHITE Referring Unavailabl e KEVIN PRINCE Admitting Unavailable KELVIN PACHECO Attending Unavailable CONSULT, HEPATOBILIARY Consulting Unavailab le SYSTEM, PROVIDER NOT IN Referring Unavaila ble AICHHOLZ, ZULY Primary Care Unavailable KELVIN PACHECO Referring Unavailable CANDIE ALMAGUER Attending Unavailable AICHHOLZ, ZULY Primary Care Unavailable Steph Almodovar Attending Unavailable AICHHOLZ, ZULY J Referring Unavailable Clementina Montesinos Attending Unavailable AICHHOLZ, ZULY J Primary Care Physician Kartik LUZ, Momo Primary Care Provider Aichholz CABLE WAY OPERATOR, Zuly Unavailable Kasandra Thomas DO Unavailable AICHHOLZ, ZULY Attending Unavailable AICHHOLZ, ZULY Attending Unavailable PALMA PALACIOS Attending Unavailable AICHHOLZ, ZULY Referring Unavailable FIDELINA SANCHEZ Attending Unavailable AICHHOLZ, ZULY Referring Unavailable JOHNNA HOLLIDAY Attending Unavailable AICHHOLZ, ZULY Referring Unavailable JOHNNA HOLLIDAY Attending Unavailable AICHHOLZ, ZULY Referring Unavailable JOHNNA HOLLIDAY Attending Unavailable AICHHOLZ, ZULY Referring Unavailable JOHNNA HOLLIDAY Attending Unavailable AICHHOLZ, ZULY Referring Unavailable BAKARIYFIDELINA Attending Unavailable AICHHOLZ, ZULY Referring Unavailable BRINK, [...] Propensity to adverse reactions (disorder) 8 [facility] Rep[facility] (20 sources) Shellfish-Deriv ed Products Propensity to adverse reactions to drug 9 [facility] (3 sources) Shellfish; Translations: [shellfish] Drug allergy (disorder) Anaphylaxis (disorder) [facility] [...] Start: 12-30-2021 take [address] [facility] once daily allopurinol 100 MG tablet Indications: Abnormal blood chemistry take 2 tablets by mouth once daily 180 tablet 3 12/30/2021 Active Start: 01-28-2021 take [address] [facility] once daily allopurinol [...] 1 capsule by mouth once daily b zvtupma-X-pybor acid (NEPHROCAPS) 1 MG capsule Take 1 [...] (20 sources) Anti-epileptic Agent Start: 06-07-2023 End: 09-25-2024 take 1 capsule by mouth at bedtime gabapentin (Neurontin) 400 MG capsule Indications: Other polyneuropathy Take 1 capsule (400 mg) by mouth at bedtime 90 capsule 1 06/27/2024 Active Start: 05-15-2022 End: 05-20-2022 take 400 mg by mouth once daily at bedtime 400 mg, Oral, DAILY AT BEDTIME, First dose on [facility] 05/15/22 at 2215, Until Discontinued Start: 06-12-2020 End: 06-12-2023 take 4 capsules by mouth once daily at bedtime for pain gabapentin 100 MG capsule Take 4 capsules by mouth at bedtime. Take daily at bedtime for foot and ankle pain. 0 06/12/2020 06/12/2023 Discontinued lactulose 29730 mg powder for oral solution (19 sources) [...] Start Date: 09/08/24 Status: Ordered Start: 04-27-2024 End: 10-31-2024 take 1 tablet by mouth every twelve hours Mycophenolate sodium (MYFORTIC) [address] tablet DR Take 1 tablet by mouth every 12 hours. 60 tablet 5 04/27/2024 10/31/2024 Discontinued (Reorder) Start: 01-16-2024 End: 01-23-2024 take 1 tablet [...] Nausea / Vomiting. Active polyethylene glycol 3350 69905 mg powder for oral solution (20 sources) [...] 0 07/17/2018 Active take 2 tablets by [facility] three times daily at mealtime sevelamer (RENVELA) 800 MG tablet Take 2 tablets by mouth 3 times daily (with meals) 0 Active sulfamethoxazole 800 mg / trimethoprim 160 mg oral tablet (20 sources) Dihydrofolate Reductase Inhibitor Antibacterial, Sulfonamide Antimicrobial Start: 09-23-2023 End: 08-28-2025 take 1 tablet by mouth three times weekly Sulfamethoxazole-trimethoprim 800-160 MG per tablet Take 1 tablet by mouth three times a week. 36 tablet 1 09/26/2024 08/28/2025 Active Start: 09-04-2023 End: 09-11-2023 take 1 [...] suspension (20 sources) Calcineurin Inhibitor Immunosuppressant Start: 10-03-2024 take 1 capsule by mouth once daily in the morning Tacrolimus (PROGRAF) 0.5 MG capsule Take 1 capsule by mouth every morning and take1 capsule by mouth every evening. 60 capsule 5 10/03/2024 Active Start: 10-03-2024 Tacrolimus 0.2 MG Pack Discontinued on 10/03/24 for low Tacrolimus level. Patient started on 0.5mg capsules. 10/03/2024 Active Start: 09-08-2024 Prograf 0.2 mg oral granule [...] capsule (20 sources) alpha-Adrenergic Ibrahima Start: 10-03-2024 take 1 capsule by mouth once daily Tamsulosin HCl 0.4 MG capsule Take 1 capsule by mouth daily. 90 capsule 1 10/03/2024 Active Start: 09-08-2024 End: 09-03-2025 take 1 capsule by mouth twice daily tamsulosin 0.4 mg Cap 0.4 mg = 1 cap(s), Oral, BID, X 30 day(s), # 60 cap(s), Refills(s) 11, Pharmacy: [id number], 170, cm, 09/08/24 14:00:00 EDT, Height/Length [...] oral tablet (20 sources) Loop Diuretic Start: 10-03-2024 take 1 tablet by mouth once daily Torsemide 20 MG tablet Take 1 tablet by mouth daily. 90 tablet 1 10/03/2024 Active Start: 01-22-2024 End: 01-23-2024 take 1 [...] itraconazole Fax results to: Dr. White - [phone] [facility] - [phone] Each 09/10/2023 01/19/2024 Discontinued (Medication Reconciliation (suppress cancel msg)) Start: 09-10-2023 CUSTOM MEDICAT ION Labs to be obtained: 1- Tacrolimus level, trough - collect twice weekly until 09/24/23, then weekly until 10/08/23, them once every two weeks there after. 2- Itraconazole level - obtain once between 09/14-09/18. 3- Chem 6 - Obtain weekly while on itraconazole Fax results to: Dr. White - [phone] [facility] - [phone] Each 0 09/10/2023 Active Diatrizoate (1 [...] 01/16/2023 Discontinued take [address] [facility] in the morning magnesium oxide (Mag-Ox) 400 MG tablet Take 2 tablets by mouth in the morning. 0 Active take 1 tablet by [facility] daily magnesium oxide (MAG-OX) 400 [...] NEEDED, Starting on 01/16/24 at 0141, Until Tu01/19/24 at 0016, Insomnia Start: 08-28-2023 End: 09-11-2023 [...] solution (1 source) Phenothiazine Start: 01-17-2024 End: 02-24-2024 take 10 mg intravenously every six hours [...] Classification Problem Date Documented Da te Episodic/Chronic Alcohol-related disorders (20 sources) Alcoholic cirrhosis; Translations: [Alcoholic cirrhosis of liver without ascites] Onset: 8 Resolved: 4 10-05-2018 Chronic Anxiety disorders (10 sources) Generalized anxiety disorder; Translations: [Generalized anxiety [...] Coronary arteriosclerosis; Translations: [Atherosclerotic heart disease of [place] coronary artery without angina pectoris] Onset: 3 04-22-2020 Chronic Disorders of lipid metabolism (8 sources) Hyperlipidemia, unspecified; Translations: [Mixed hyperlipidemia] Onset: 3 Chronic Esophageal disorders (5 sources) Gastroesophageal reflux disease; Translations: [Gastro-esophageal reflux disease without esophagitis] Onset: 3 11-03-2023 Chronic Essential hypertension (20 sources) Benign essential hypertension; Translations: [Essential (primary) hypertension] Onset: 2 04-22-2020 Chronic Genitourinary symptoms and ill-defined conditions (1 source) Finding of urological device; Translations: [Encounter for attention to other artificial openings of urinary tract] Chronic Genitourinary symptoms and ill-defined conditions (11 sources) Retention of urine, unspecified; Translations: [Hematuria, [...] other renal disorders] 08-28-2023 Chronic Immunity disorders (17 sources) Immunosuppression; Translations: [Immunodeficiency, unspecified] Onset: 2 Chronic Osteoporosis (2 sources) Osteoporosis; Translations: [Other osteoporosis without current [...] [Other penitentiary (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] Episodic Other aftercare (1 source) Patient encounter status; Translations: [Encounter for therapeutic drug level monitoring] 06-17-2024 Episodic Other and ill-defined heart disease (5 sources) Dysfunction of papillary muscle; Translations: [Other ill-defined heart diseases] Onset: 3 11-03-2023 Chronic Other and ill-defined heart disease (2 sources) Diastolic dysfunction; Translations: [Other ill-defined heart diseases] Onset: 4 02-11-2024 Chronic Other diseases of kidney and ureters (4 sources) Hydronephrosis; Translations: [Hydronephrosis with ureteral stricture, not elsewhere classified] Episodic Other diseases of kidney and ureters (1 source) Urinary tract obstruction; Translations: [Other obstructive and reflux uropathy] Onset: 4 Episodic Other gastrointestinal disorders (2 sources) Constipation; Translations: [Other constipation] Onset: 4 08-23-2024 Episodic Other liver diseases (4 sources) Cirrhosis of liver; Translations: [Unspecified cirrhosis [...] unspecified] Onset: 4 Chronic Other liver diseases (2 sources) Portal hypertension; Translations: [Portal hypertension] Onset: 4 02-11-2024 Chronic Other lower respiratory disease (1 source) Hypoxia; Translations: [Hypoxemia] 09-10-2023 Episodic Other nervous system disorders (5 sources) Peripheral nerve disease ; Translations: [Polyneuropathy, unspecified] Onset: 4 12-03-2023 Chronic Other nutritional; endocrine; and metabolic disorders (20 sources) Obese class I; Translations: [Obesity, unspecified] Onset: 0 04-09-2020 Chronic Other nutritional; endocrine; and metabolic disorders (1 source) Obesity; Translations: [Obesity, unspecified] Onset: 3 11-03-2023 Chronic Other nutritional; endocrine; and metabolic disorders (5 sources) Body mass index 30+ - obesity; [...] Onset: 9 04-12-2020 Chronic Residual codes; unclassified (6 sources) Obstructive sleep apnea syndrome; Translations: [Obstructive sleep apnea (adult) (pediatric)] Onset: 3 11-21-2023 Chronic Residual codes; unclassified (2 sources) H/O: tissue/organ recipient; Translations: [Transplanted organ [...] Date Documented Da te Episodic/Chronic Abdominal hernia (2 sources) Umbilical hernia; Translations: [Umbilical hernia without obstruction or gangrene] Onset: 4 02-11-2024 Episodic Abdominal pain (5 sources) Generalized abdominal pain; Translations: [Generalized abdominal pain] Onset: 3 11-03-2023 Episodic Acute and unspecified renal failure (20 sources) Acute injury of kidney; Translations: [Acute kidney failure, unspecified] Onset: 2 Resolved: 4 Episodic Allergic reactions (2 sources) Eczema; Translations: [Dermatitis, unspecified] Onset: 4 02-25-2024 Episodic Calculus of urinary tract (8 sources) Calculus of ureter; Translations: [Kidney stone] Onset: 2 11-03-2023 Episodic Complication of device; implant or graft (7 sources) Complication of dialysis; Translations: [Unspecified complication [...] Onset: 2 Episodic Deficiency and other anemia (5 sources) Anemia; Translations: [Anemia, unspecified] Onset: 3 11-03-2023 Episodic Diabetes mellitus without complication (5 sources) Hyperglycemia; Translations: [Hyperglycemia, unspecified] Onset: 3 11-03-2023 Episodic Fever of unknown origin (20 sources) Fever; Translations: [Fever, unspecified] Onset: 3 Resolved: 3 08-28-2023 Episodic Gastrointestinal hemorrhage (7 sources) Gastrointestinal hemorrhage; Translations: [Gastrointestinal hemorrhage, unspecified] Onset: 3 Resolved: 4 11-03-2023 Episodic Malaise and fatigue (2 sources) Asthenia; Translations: [Weakness] Onset: 4 02-18-2024 Episodic Mood disorders (2 sources) Mood disorders Onset: 4 02-11-2024 Mycoses (20 sources) Histoplasmosis; Translations: [Histoplasmosis, unspecified] Onset: 3 09-10-2023 Episodic Nausea and vomiting (20 sources) Nausea and vomiting; Translations: [Nausea with vomiting, unspecified] Onset: 0 05-10-2020 Episodic Other aftercare (1 source) Other rodent exterminator (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; Translations: [OTH NURSING HOME 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 THERAPY] Onset: 2 Episodic Other aftercare (1 source) USP (current) use of aspirin; Translations: [NURSING HOME CURRENT USE OF ASPIRIN] Onset: 2 Episodic Other circulatory disease (4 sources) Other specified symptoms and signs involving the circulatory and respiratory systems; Translations: [OTH SPEC SX SIGNS INVLV CIRC RS] Onset: 2 Episodic Other circulatory disease (2 sources) Carotid bruit; Translations: [Other specified symptoms [...] 0 04-09-2020 Episodic Other lower respiratory disease (7 sources) Dyspnea; Translations: [Shortness of breath] Onset: 4 01-06-2024 Episodic Other lower respiratory disease (1 source) Shortness of breath; Translations: [Shortness of breath] Onset: 4 Episodic Other nervous system disorders (6 sources) Tremor; Translations: [Tremor, unspecified] Onset: 3 11-03-2023 Episodic Other nutritional; endocrine; and metabolic disorders (2 sources) Body mass index 25-29 - overweight; Translations: [Overweight] Onset: 4 04-18-2024 Episodic Pancreatic disorders (not diabetes) (2 sources) Pancreatitis; Translations: [Acute pancreatitis without necrosis or infection, unspecified] Onset: 4 Resolved: 4 02-11-2024 Episodic Pleurisy; pneumothorax; pulmonary collapse (20 sources) Pleural effusion; Translations: [Pleural effusion, not elsewhere classified] Onset: 4 01-16-2024 Episodic Residual codes; unclassified (1 source) Ill-defined and unknown cause of mortality; Translations: [ILL-DEFINED UNKNOWN CAUSE MORTALITY] Onset: 2 Episodic Residual codes; unclassified (5 sources) Bilateral lower limb edema; Translations: [Localized edema] Onset: 4 01-06-2024 Episodic Residual codes; unclassified (4 sources) Insomnia; Translations: [Insomnia, unspecified] Onset: 4 [...] WITH AUTO DIFFon BASOPHILS ABSOLUTE AUTO 0 [facility] Basophils/100 WBC (Bld) 0.6 % 0.2 - 2.0 % [facility] Eosinophils/100 WBC (Bld) 3.2 % 0.9 - 7.0 % [facility] Erythrocyte distribution width (RBC) [Ratio] 12.4 % 11.0 - 15.0 % [facility] Hematocrit (Bld) [Volume fraction] 47 % 42.0 - 54.0 % [facility] Hemoglobin (Bld) [Mass/Vol] 15.8 g/dL 14.0 - 18.0 g/dL [facility] IMMATURE GRANULOCYTES ABS AUTO 0.01 [facility] Immature granulocytes/100 WBC (Bld) 0.2 % 0.0 - 0.5 % [facility] Interpretation and review of laboratory results Abnormal [facility] LYMPHOCYTES ABSOLUTE AUTO 1.1 Low [facility] Lymphocytes/100 WBC (Bld) 22.8 % 20.5 - 60.0 % [facility] MCH (RBC) [Entitic mass] 29.6 pg 25.9 - 34.0 pg [facility] MCHC (RBC) [Mass/Vol] 33.6 g/dL 29.9 - 35.2 g/dL [facility] MCV (RBC) [Entitic vol] 88 fL 80.0 - 94.0 fL [facility] MONOCYTES ABSOLUTE AUTO 0.4 [facility] Monocytes/100 WBC (Bld) 8 % 1.7 - 12.0 % [facility] NEUTROPHILS ABSOLUTE AUTO 3.3 [facility] Neutrophils/100 WBC (Bld) 65.2 % 43.0 - 75.0 % [facility] Platelet mean volume (Bld) [Entitic vol] 9.3 fL Low 9.5 - 13.5 fL [facility] EO # 0.2 [facility] PLT 222 [facility] RBC 5.34 [facility] WBC 5 [facility] ALL CBC WITH AUTO DIFFon BASOPHILS ABSOLUTE AUTO 0 [facility] Basophils/100 WBC (Bld) 0.6 % 0.2 - 2.0 % [facility] Eosinophils/100 WBC (Bld) 2.9 % 0.9 - 7.0 % [facility] Erythrocyte distribution width (RBC) [Ratio] 12.5 % 11.0 - 15.0 % [facility] Hematocrit (Bld) [Volume fraction] 47.1 % 42.0 - 54.0 % [facility] Hemoglobin (Bld) [Mass/Vol] 15.2 g/dL 14.0 - 18.0 g/dL [facility] IMMATURE GRANULOCYTES ABS AUTO 0.01 [facility] Immature granulocytes/100 WBC (Bld) 0.2 % 0.0 - 0.5 % [facility] Interpretation and review of laboratory results Abnormal [facility] LYMPHOCYTES ABSOLUTE AUTO 1.6 [facility] Lymphocytes/100 WBC (Bld) 32.7 % 20.5 - 60.0 % [facility] MCH (RBC) [Entitic mass] 28.5 pg 25.9 - 34.0 pg [facility] MCHC (RBC) [Mass/Vol] 32.3 g/dL 29.9 - 35.2 g/dL [facility] MCV (RBC) [Entitic vol] 88.4 fL 80.0 - 94.0 fL [facility] MONOCYTES ABSOLUTE AUTO 0.4 [facility] Monocytes/100 WBC (Bld) 8.5 % 1.7 - 12.0 % [facility] NEUTROPHILS ABSOLUTE AUTO 2.6 [facility] Neutrophils/100 WBC (Bld) 55.1 % 43.0 - 75.0 % [facility] Platelet mean volume (Bld) [Entitic vol] 9.3 fL Low 9.5 - 13.5 fL [facility] TBH EO # 0.1 [facility] TB PLT 225 [facility] TB RBC 5.33 [facility] WBC 4.8 [facility] 36on 06-01-2024 36 Regarding echo performed on 05/18/2024: MD Cinda Batres MA Please tell him the echo was ok and showed a small residual fluid around the heart. This is significant improvement from before. Follow up as planned. Patient informed and he verbalized understanding. Normal [facility] Office Visiton 05-13-2024 Follow-up visit [id number] George Styles 1970 M Date Provider Department Center 05/13/2024 [facility]-MIGUEL CARDONA [facility] Family History Problem Relation Age of Onset Coronary artery disease Mother Coronary artery disease Father Family Status - Relation Status Age at Mother Father Level of Service:18310 MI OFFICE/OUTPATIENT ESTABLISHED LOW MDM 20 MIN Reason for Visit and Comments: Follow-up [284641] - Yearly follow up Normal [facility] B-TYPE NATRIURETIC PEPTIDE ( BRAIN)on 02-26-2024 Interpretation and review of laboratory results Normal [facility] Natriuretic peptide B (Bld) [Mass/Vol] 72 pg/mL 0 - 100 pg/mL [facility] Natriuretic peptide B (Bld) [Mass/Vol] 72 pg/mL Normal 0-100 [facility] Comment on above: Performed By: #### C HM7, HFP, MGO #### [facility] (DEFAULT) [address] [place] [address] CHEM 6 (LYTES, BUN CREA)on 0 02-26-2024 Anion gap [Moles/Vol] 13 mmol/L 7 - 17 mmol/L [facility] Chloride [Moles/Vol] 107 mmol/L 98 - 10 8 mmol/L [facility] CO2 [Moles/Vol] 25 mmol/L 21 - 31 mmol/L [facility] Creatinine [Mass/Vol] 1.23 mg/dL 0.70 - 1.30 mg/dL [facility] eGFR, CKD-EPI, Male 71 - PINF [facility] Comment on above: Reported eGFR is bas ed on the CKD-EPI 2020 equation using creatinine, age, and sex. Potassium [Moles/Vol] 4.2 mmol/L 3.5 - 5.0 mmol/L [facility] Sodium [Moles/Vol] 141 mmol/L 135 - 145 mmol/L [facility] Urea nitrogen [Mass/Vol] 17 mg/dL 7 - 25 mg/dL [facility] Urea nitrogen/Creatinine [Mass ratio] 14 mg/mg [facility] Anion gap [Moles/Vol] 13 mmol/L Normal 7-17 [facility] Comment on above: Performed By: #### C Tray, CHM7, HFP, IPB, MGO #### [facility] (DEFAULT) [address] [place] [address] Chloride [Moles/Vol] 107 mmol/L Normal 98-108 [facility] Comment on above: Performed By: #### C A, CHM7, HFP, IPB, MGO #### [facility] (DEFAULT) [address] [place] [address] CO2 [Moles/Vol] 25 mmol/L Normal 21-31 [facility] Comment on above: Performed By: #### C A, CHM7, HFP, IPB, MGO #### [facility] (DEFAULT) [address] [place] [id number] Creatinine [Mass/Vol] 1.23 mg/dL Normal 0.70-1.30 [facility] Comment on above: Performed By: #### C A, CHM7, HFP, IPB, MGO #### [facility] (DEFAULT) [address] [place] [id number] GFR/1.73 sq M.predicted among non-blacks MDRD (S/P/Bld) [Vol rate/Area] 70 mL/min/{1.73_m2} Normal >=60 [facility] Comment on above: Result Comment: Repo rted eGFR is based on the CKD-EPI 2020 equation using creatinine, age, and sex. Performed By: #### C A, CHM7, HFP, IPB, MGO #### [facility] (DEFAULT) [address] [place] [id number] Potassium [Moles/Vol] 4.2 mmol/L Normal 3.5-5.0 [facility] Comment on above: Performed By: #### C A, CHM7, HFP, IPB, MGO #### [facility] (DEFAULT) [address] [place] [address] 14961 Sodium [Moles/Vol] 141 mmol/L Normal 135-145 [facility] Comment on above: Performed By: #### C A, CHM7, HFP, IPB, MGO #### [facility] (DEFAULT) [address] [place] [address] 08293 Urea nitrogen [Mass/Vol] 17 mg/dL Normal 7-25 [facility] Comment on above: Performed By: #### C A, CHM7, HFP, IPB, MGO #### [facility] (DEFAULT) [address] [place] [address] 15379 Urea nitrogen/Creatinine [Mass ratio] 14 mg/mg Normal [facility] Comment on above: Performed By: #### C A, CHM7, HFP, IPB, MGO #### [facility] (DEFAULT) [address] [place] [address] CBC,PLATELETSon 01-23-2024 Erythrocyte distribution width (RBC) [Ratio] 14.2 % 10.9 - 14.3 % [facility] Hematocrit (Bld) [Volume fraction] 37.0 % Low 39.6 - 48.8 % [facility] Hemoglobin (Bld) [Mass/Vol] 12.0 g/dL Low 13.4 - 16.8 g/dL [facility] Interpretation and review of laboratory results Abnormal [facility] MCH (RBC) [Entitic mass] 28.6 pg 26.1 - 33.[address] [facility] MCHC (RBC) [Mass/Vol] 32.4 g/dL 31.9 - 36.5 g/dL [facility] MCV (RBC) [Entitic vol] 88.1 fL 79.0 - 94.[address] [facility] Platelet mean volume (Bld) [Entitic vol] 10.4 fL 8.7 - 12.[address] [facility] Platelets (Bld) [#/Vol] 170 10*3/uL 146 - 337 K/uL [facility] RBC (Bld) [#/Vol] 4.20 10*6/uL Low [facility] WBC (Bld) [#/Vol] 3.70 10*3/uL Low 3.73 - 10. 10 K/uL [facility] Hematocrit (Bld) [Volume fraction] 37.0 % Low 39.6-48.8 [facility] Comment on above: Performed By: #### C HM7, HFP, MGO #### [facility] (DEFAULT) [address] [place] [address] Hemoglobin (Bld) [Mass/Vol] 12.0 g/dL Low 13.4-16.8 [facility] Comment on above: Performed By: #### C HM7, HFP, MGO #### [facility] (DEFAULT) [address] [place] [address] 89727 MCV (RBC) [Entitic vol] 88.1 fL Normal 79.0-94.5 [facility] Comment on above: Performed By: #### C HM7, HFP, MGO #### [facility] (DEFAULT) [address] [place] [address] 54641 Mean Cell Hgb 28.6 pg Normal 26.1-33.3 [facility] Comment on above: Performed By: #### C HM7, HFP, MGO #### [facility] (DEFAULT) [address] [place] [address] 00263 Mean Cell Hgb Conc 32.4 g/dL Normal 31.9-36.5 [facility] Comment on above: Performed By: #### Chinedu HM7, HFP, MGO #### [facility] (DEFAULT) [address] [place] [address] 77705 Platelet mean volume (Bld) [Entitic vol] 10.4 fL Normal 8.7-12.3 [facility] Comment on above: Performed By: #### Chinedu HM7, HFP, MGO #### [facility] (DEFAULT) [address] [place] [address] 35565 Platelets (Bld) [#/Vol] 170 10*3/uL Normal 146-337 [facility] Comment on above: Performed By: #### C HM7, HFP, MGO #### [facility] (DEFAULT) [address] [place] [address] 31252 RBC (Bld) [#/Vol] 4.20 10*6/uL Low 4.38-5.83 [facility] Comment on above: Performed By: #### C HM7, HFP, MGO #### [facility] (DEFAULT) [address] [place] [address] 30753 RBC Distribution 14.2 % Normal 10.9-14.3 [facility] Comment on above: Performed By: #### C HM7, HFP, MGO #### [facility] (DEFAULT) [address] [place] [address] WBC (Bld) [#/Vol] 3.70 10*3/uL Low 3.73-10.10 [facility] Comment on above: Performed By: #### C HM7, HFP, MGO #### [facility] (DEFAULT) [address] [place] [address] CHEM 7 (LYTES,BUN,CREA,GLUC) on 01-23-2024 Anion gap [Moles/Vol] 14 mmol/L 7 - 17 mmol/L [facility] Chloride [Moles/Vol] 105 mmol/L 98 - 10 8 mmol/L [facility] CO2 [Moles/Vol] 25 mmol/L 21 - 31 mmol/L [facility] Creatinine [Mass/Vol] 1.32 mg/dL High 0.70 - 1.30 mg/dL [facility] eGFR, CKD-EPI, Male 66 - PINF [facility] Comment on above: Reported eGFR is bas ed on the CKD-EPI 2020 equation using creatinine, age, and sex. Glucose [Mass/Vol] 94 mg/dL 70 - 99 mg/dL [facility] Osmolality Calc [Osmolality] [address] [facility] Potassium [Moles/Vol] 3.8 mmol/L 3.5 - 5.0 mmol/L [facility] Sodium [Moles/Vol] 140 mmol/L 135 - 145 mmol/L [facility] Urea nitrogen [Mass/Vol] 23 mg/dL 7 - 25 mg/dL [facility] Urea nitrogen/Creatinine [Mass ratio] 17 mg/mg [facility] Anion gap [Moles/Vol] 14 mmol/L Normal 7-17 [facility] Comment on above: Performed By: #### C HM7, HFP, MGO #### [facility] (DEFAULT) [address] [place] [address] Chloride [Moles/Vol] 105 mmol/L Normal 98-108 [facility] Comment on above: Performed By: #### C HMJessica, HFP, MGO #### [facility] (DEFAULT) [address] [place] [address] 53956 CO2 [Moles/Vol] 25 mmol/L Normal 21-31 [facility] Comment on above: Performed By: #### Chinedu HMJessica, HFP, MGO #### [facility] (DEFAULT) [address] [place] [address] 75742 Creatinine [Mass/Vol] 1.32 mg/dL High 0.70-1.30 [facility] Comment on above: Performed By: #### Chinedu HMJessica, HFP, MGO #### [facility] (DEFAULT) [address] [place] [address] 27890 GFR/1.73 sq M.predicted among non-blacks MDRD (S/P/Bld) [Vol rate/Area] 65 mL/min/{1.73_m2} Normal >=60 [facility] Comment on above: Result Comment: Repo rted eGFR is based on the CKD-EPI 2020 equation using creatinine, age, and sex. Performed By: #### C JASMYNE, HFP, MGO #### [facility] (DEFAULT) [address] [place] [address] 20481 Glucose [Mass/Vol] 94 mg/dL Normal 70-99 [facility] Comment on above: Performed By: #### Chinedu HMJessica, HFP, MGO #### [facility] (DEFAULT) [address] [place] [address] 58773 Osmolality [Osmolality] 296 mosm/kg Normal 278-305 [facility] Comment on above: Performed By: #### Chinedu HM7, HFP, MGO #### [facility] (DEFAULT) [address] [place] [address] 31715 Potassium [Moles/Vol] 3.8 mmol/L Normal 3.5-5.0 [facility] Comment on above: Performed By: #### Chinedu HMJessica, HFP, MGO #### [facility] (DEFAULT) [address] [place] [address] Sodium [Moles/Vol] 140 mmol/L Normal 135-145 [facility] Comment on above: Performed By: #### C HM7, HFP, MGO #### [facility] (DEFAULT) [address] [place] [address] Urea nitrogen [Mass/Vol] 23 mg/dL Normal 7-25 [facility] Comment on above: Performed By: #### C HM7, HFP, MGO #### [facility] (DEFAULT) [address] [place] [address] Urea nitrogen/Creatinine [Mass ratio] 17 mg/mg Normal [facility] Comment on above: Performed By: #### C HM7, HFP, MGO #### [facility] (DEFAULT) [address] [place] [address] GLUCOSE POCon 01-23-2024 Glucose [Mass/Vol] 88 mg/dL 70 - 99 mg/dL [facility] POC Sample Type [facility] Test performed at address of the patient encounter. [facility] Glucose [Mass/Vol] 191 mg/dL High 70 - 99 mg/dL [facility] Interpretation and review of laboratory results Abnormal [facility] POC Sample Type CAPBL [facility] Test performed at address of the patient encounter. [facility] HEPATIC FUNCTION PANELon Albumin [Mass/Vol] 3.9 g/dL 3.5 - 5.0 g/dL [facility] ALP [Catalytic activity/Vol] 83 U/L 32 - 126 U/L [facility] ALT [Catalytic activity/Vol] 9 U/L Low 10 - 52 U/L [facility] AST [Catalytic activity/Vol] 17 U/L 10 - 39 U/L [facility] Bilirubin [Mass/Vol] 1.6 mg/dL High NINF - 1.5 mg/dL [facility] Bilirubin.direct [Mass/Vol] 0.4 mg/dL High NINF - 0.3 mg/dL [facility] Protein [Mass/Vol] 6.6 g/dL 6.4 - 8.3 g/dL [facility] Albumin [Mass/Vol] 3.9 g/dL Normal 3.5-5.0 [facility] Comment on above: Performed By: #### C HM7, HFP, MGO #### [facility] (DEFAULT) [address] [place] [address] 03863 ALP [Catalytic activity/Vol] 83 U/L Normal 32-126 [facility] Comment on above: Performed By: #### C HM7, HFP, MGO #### [facility] (DEFAULT) [address] [place] [address] 80862 ALT [Catalytic activity/Vol] 9 U/L Low 10-52 [facility] Comment on above: Performed By: #### C HM7, HFP, MGO #### [facility] (DEFAULT) [address] [place] [address] 24528 AST [Catalytic activity/Vol] 17 U/L Normal 10-39 [facility] Comment on above: Performed By: #### C HM7, HFP, MGO #### [facility] (DEFAULT) [address] [place] [address] Bilirubin [Mass/Vol] 1.6 mg/dL High <1.5 [facility] Comment on above: Performed By: #### C HM7, HFP, MGO #### [facility] (DEFAULT) [address] [place] [address] 69360 Bilirubin.indirect [Mass/Vol] 0.4 mg/dL High <0.3 [facility] Comment on above: Performed By: #### C HM7, HFP, MGO #### [facility] (DEFAULT) [address] [place] [address] 39790 Protein [Mass/Vol] 6.6 g/dL Normal 6.4-8.3 [facility] Comment on above: Performed By: #### C TAVO MEDLEY MGO #### [facility] (DEFAULT) [address] [place] [address] ITRACONAZOLE LEVELon 024 Hydroxyitraconazole [Mass/Vol] 7.6 mcg/mL [facility] Comment on above: REFERENCE VALUE No therapeutic range established; activity and serum concentration are similar to parent drug. ADDITIONAL INFORMATION This test was developed and its performance characteristics determined by [facility] in a manner consistent with CLIA requirements. This test has not been cleared or approved by the [place]. Food and Drug Administration. Test Performed by: [facility] [address] [place] [address] Web Site Specialist: Rosendo Bose M.D. Ph.D.; CLIA# [id number] Itraconazole [Mass/Vol] 6.0 mcg/mL [facility] Comment on above: REFERENCE VALUE >0.5 (localized infection), >1.0 (systemic infection) [facility] MAGNESIUMon 01-23-2024 Interpretation and review of laboratory results Normal [facility] Magnesium [Mass/Vol] 1.8 mg/dL 1.6 - 2 .6 mg/dL [facility] Magnesium [Mass/Vol] 1.8 mg/dL Normal 1.6-2.6 [facility] Comment on above: Performed By: #### C JASMYNE, TAVO, MGO #### [facility] (DEFAULT) [address] [place], [place] [id number] No Panel Informationon 01-23 Interpretation and review of laboratory results Abnormal [facility] TACROLIMUS LEVEL, TROUGH (MI E DRUG LEVEL)on 01-23-2024 Interpretation and review of laboratory results Normal [facility] Tacrolimus (Bld) [Mass/Vol] 7.0 ng/mL Bone Marrow Transplant: 4.0-12.0, Therapeutic: 5.0-15.[address] [facility] Method performed is a chemiluminescent microparticle immunoasssay on the [employer] i2000. The range is based on experience at [facility] and users should be aware that target concentrations vary widely depending on concomitant therapy, time post-transplant, and desired degree of immunosuppression. [facility] Tacrolimus, Trough 7.0 ng/mL Normal Bone Susana ow Transplant: 4.0-12.0, Therapeutic: 5.0-15.0 [facility] Comment on above: Order Comment: Pleas e draw at specified interval PRIOR to dose. Do not hold dose to wait for level. Specimens batched twice per day, (M-F) and once per day weekendsMethod performed is a chemiluminescent microparticle immunoasssay on the [employer] i2000.The range is based on experience at [facility] and users should be aware that target concentrations vary widely depending on concomitant therapy, time post-transplant, and desired degree of immunosuppression. Performed By: #### C A, CHM7, HFP, IPB, MGO #### [facility] (DEFAULT) [address] [place] [address] 97117 CARDIAC RHYTHM (SCANNED)on 0 01-22-[address] [facility] CBC,PLATELETSon 01-22-2024 Erythrocyte distribution width (RBC) [Ratio] 14.1 % 10.9 - 14.3 % [facility] Hematocrit (Bld) [Volume fraction] 41.5 % 39.6 - 48.8 % [facility] Hemoglobin (Bld) [Mass/Vol] 13.3 g/dL Low 13.4 - 16.8 g/dL [facility] Interpretation and review of laboratory results Abnormal [facility] MCH (RBC) [Entitic mass] 27.8 pg 26.1 - 33.[address] [facility] MCHC (RBC) [Mass/Vol] 32.0 g/dL 31.9 - 36.5 g/dL [facility] MCV (RBC) [Entitic vol] 86.8 fL 79.0 - 94.[address] [facility] Platelet mean volume (Bld) [Entitic vol] 10.5 fL 8.7 - 12.[address] [facility] Platelets (Bld) [#/Vol] 186 10*3/uL 146 - 337 K/uL [facility] RBC (Bld) [#/Vol] 4.78 10*6/uL [facility] WBC (Bld) [#/Vol] 3.74 10*3/uL 3.73 - 10. 10 K/uL [facility] Hematocrit (Bld) [Volume fraction] 41.5 % Normal 39.6-48.8 [facility] Comment on above: Performed By: #### C HM7, HFP, MGO #### [facility] (DEFAULT) [address] [place] [address] 01609 Hemoglobin (Bld) [Mass/Vol] 13.3 g/dL Low 13.4-16.8 [facility] Comment on above: Performed By: #### C HM7, HFP, MGO #### [facility] (DEFAULT) [address] [place] [address] 12234 MCV (RBC) [Entitic vol] 86.8 fL Normal 79.0-94.5 [facility] Comment on above: Performed By: #### C HM7, HFP, MGO #### [facility] (DEFAULT) [address] [place] [address] 93580 Mean Cell Hgb 27.8 pg Normal 26.1-33.3 [facility] Comment on above: Performed By: #### C HM7, HFP, MGO #### [facility] (DEFAULT) [address] [place] [address] 90344 Mean Cell Hgb Conc 32.0 g/dL Normal 31.9-36.5 [facility] Comment on above: Performed By: #### Chinedu HM7, HFP, MGO #### [facility] (DEFAULT) [address] [place] [address] 87415 Platelet mean volume (Bld) [Entitic vol] 10.5 fL Normal 8.7-12.3 [facility] Comment on above: Performed By: #### C HM7, HFP, MGO #### [facility] (DEFAULT) [address] [place] [address] 75306 Platelets (Bld) [#/Vol] 186 10*3/uL Normal 146-337 [facility] Comment on above: Performed By: #### Chinedu HM7, HFP, MGO #### [facility] (DEFAULT) [address] [place] [address] 37692 RBC (Bld) [#/Vol] 4.78 10*6/uL Normal 4.38-5.83 [facility] Comment on above: Performed By: #### Chinedu HM7, HFP, MGO #### [facility] (DEFAULT) [address] [place] [address] 85528 RBC Distribution 14.1 % Normal 10.9-14.3 [facility] Comment on above: Performed By: #### Chinedu HM7, HFP, MGO #### [facility] (DEFAULT) [address] [place] [address] 68905 WBC (Bld) [#/Vol] 3.74 10*3/uL Normal 3.73-10.10 [facility] Comment on above: Performed By: #### Chinedu HM7, HFP, MGO #### [facility] (DEFAULT) [address] [place] [address] 65248 CHEM 7 (LYTES,BUN,CREA,GLUC) on 01-22-2024 Anion gap [Moles/Vol] 13 mmol/L 7 - 17 mmol/L [facility] Chloride [Moles/Vol] 109 mmol/L High 98 - 10 8 mmol/L [facility] CO2 [Moles/Vol] 23 mmol/L 21 - 31 mmol/L [facility] Creatinine [Mass/Vol] 1.10 mg/dL 0.70 - 1.30 mg/dL [facility] eGFR, CKD-EPI, Male 82 - PINF [facility] Comment on above: Reported eGFR is bas ed on the CKD-EPI 2020 equation using creatinine, age, and sex. Glucose [Mass/Vol] 84 mg/dL 70 - 99 mg/dL [facility] Interpretation and review of laboratory results Abnormal [facility] Osmolality Calc [Osmolality] [address] [facility] Potassium [Moles/Vol] 4.0 mmol/L 3.5 - 5.0 mmol/L [facility] Sodium [Moles/Vol] 141 mmol/L 135 - 145 mmol/L [facility] Urea nitrogen [Mass/Vol] 16 mg/dL 7 - 25 mg/dL [facility] Urea nitrogen/Creatinine [Mass ratio] 15 mg/mg [facility] Anion gap [Moles/Vol] 13 mmol/L Normal 7-17 [facility] Comment on above: Performed By: #### C HM7, HFP, MGO #### [facility] (DEFAULT) [address] [place] [address] 54265 Chloride [Moles/Vol] 109 mmol/L High 98-108 [facility] Comment on above: Performed By: #### C HM7, HFP, MGO #### [facility] (DEFAULT) [address] [place] [address] CO2 [Moles/Vol] 23 mmol/L Normal 21-31 [facility] Comment on above: Performed By: #### C HM7, HFP, MGO #### [facility] (DEFAULT) [address] [place] [address] Creatinine [Mass/Vol] 1.10 mg/dL Normal 0.70-1.30 [facility] Comment on above: Performed By: #### C HM7, HFP, MGO #### [facility] (DEFAULT) [address] [place] [address] 28264 GFR/1.73 sq M.predicted among non-blacks MDRD (S/P/Bld) [Vol rate/Area] 81 mL/min/{1.73_m2} Normal >=60 [facility] Comment on above: Result Comment: Repo rted eGFR is based on the CKD-EPI 2020 equation using creatinine, age, and sex. Performed By: #### C HM7, HFP, MGO #### [facility] (DEFAULT) [address] [place] [address] 70277 Glucose [Mass/Vol] 84 mg/dL Normal 70-99 [facility] Comment on above: Performed By: #### C HM7, HFP, MGO #### [facility] (DEFAULT) [address] [place] [address] 48685 Osmolality [Osmolality] 295 mosm/kg Normal 278-305 [facility] Comment on above: Performed By: #### C HM7, HFP, MGO #### [facility] (DEFAULT) [address] [place] [address] 17728 Potassium [Moles/Vol] 4.0 mmol/L Normal 3.5-5.0 [facility] Comment on above: Performed By: #### C HM7, HFP, MGO #### [facility] (DEFAULT) [address] [place] [address] 24181 Sodium [Moles/Vol] 141 mmol/L Normal 135-145 [facility] Comment on above: Performed By: #### C HM7, HFP, MGO #### [facility] (DEFAULT) [address] [place] [address] 86383 Urea nitrogen [Mass/Vol] 16 mg/dL Normal 7-25 [facility] Comment on above: Performed By: #### C HM7, HFP, MGO #### [facility] (DEFAULT) [address] [place] [address] 86559 Urea nitrogen/Creatinine [Mass ratio] 15 mg/mg Normal [facility] Comment on above: Performed By: #### C HM7, HFP, MGO #### [facility] (DEFAULT) [address] [place] [address] 96302 MAGNESIUMon 01-22-2024 Interpretation and review of laboratory results Normal [facility] Magnesium [Mass/Vol] 2.0 mg/dL 1.6 - 2 .6 mg/dL [facility] Magnesium [Mass/Vol] 2.0 mg/dL Normal 1.6-2.6 [facility] Comment on above: Performed By: #### M GO, CHM7 #### [facility] (DEFAULT) [address] [place] [address] 26688 No Panel Informationon 01-[address] [facility] PT,INR,PTTon 01-22-2024 aPTT Coag (PPP) [Time] 29.2 s [facility] INR Coag (Bld) [Relative time] 1.1 {INR} 0.9 - 1.[address] [facility] Interpretation and review of laboratory results Abnormal [facility] PT Coag (PPP) [Time] 14.3 s High [facility] aPTT Coag (Bld) [Time] 29.2 s Normal 24.0-34.3 [facility] Comment on above: Performed By: #### P TPTT #### [facility] (DEFAULT) [address] [place] [address] 73750 INR Coag (PPP) [Relative time] 1.1 {INR} Normal 0.9-1.1 [facility] Comment on above: Performed By: #### P TPTT #### [facility] (DEFAULT) [address] [place] [address] 68907 PT Coag (PPP) [Time] 14.3 s High 11.9-14.2 [facility] Comment on above: Performed By: #### P TPTT #### [facility] (DEFAULT) [address] [address] TACROLIMUS LEVEL, TROUGH (MI E DRUG LEVEL)Ordered By: Sheree Jensen on 01-22-2024 Interpretation and review of laboratory results Normal [facility] Tacrolimus (Bld) [Mass/Vol] 7.9 ng/mL Bone Marrow Transplant: 4.0-12.0, Therapeutic: 5.0-15.[address] [facility] Method performed is a chemiluminescent microparticle immunoasssay on the [employer] i2000. The range is based on experience at [facility] and users should be aware that target concentrations vary widely depending on concomitant therapy, time post-transplant, and desired degree of immunosuppression. [facility] TACROLIMUS LEVEL, TROUGH (MI E DRUG LEVEL)on 01-22-2024 Tacrolimus, Trough 7.9 ng/mL Normal Bone Susana ow Transplant: 4.0-12.0, Therapeutic: 5.0-15.0 [facility] Comment on above: Order Comment: Pleas e draw at specified interval PRIOR to dose. Do not hold dose to wait for level. Specimens batched twice per day, (M-F) and once per day weekendsMethod performed is a chemiluminescent microparticle immunoasssay on the [employer] i2000.The range is based on experience at [facility] and users should be aware that target concentrations vary widely depending on concomitant therapy, time post-transplant, and desired degree of immunosuppression. Performed By: #### C A, CHM7, HFP, IPB, MGO #### [facility] (DEFAULT) [address] [place] [address] 95742 TYPE AND SCREENon 01-22-2024 ABO/RH(D) TYPE Positive [facility] ABO/RH(D) TYPE Positive Normal [facility] Comment on above: Performed By: #### C HM7, HFP, MGO #### [facility] (DEFAULT) [address] [address] [place] Unspecified body regionOr dered By: Unassigned Pacs on 01-22-[address] [facility] Work Phone: [place] Unspecified body regionon 01-22-2024 Radiology Study observation (narrative) [facility] CBC,PLATELETSon 01-21-2024 Erythrocyte distribution width (RBC) [Ratio] 14.0 % 10.9 - 14.3 % [facility] Hematocrit (Bld) [Volume fraction] 39.4 % Low 39.6 - 48.8 % [facility] Hemoglobin (Bld) [Mass/Vol] 12.7 g/dL Low 13.4 - 16.8 g/dL [facility] Interpretation and review of laboratory results Abnormal [facility] MCH (RBC) [Entitic mass] 28.0 pg 26.1 - 33.[address] [facility] MCHC (RBC) [Mass/Vol] 32.2 g/dL 31.9 - 36.5 g/dL [facility] MCV (RBC) [Entitic vol] 87.0 fL 79.0 - 94.[address] [facility] Platelet mean volume (Bld) [Entitic vol] 10.2 fL 8.7 - 12.[address] [facility] Platelets (Bld) [#/Vol] 157 10*3/uL 146 - 337 K/uL [facility] RBC (Bld) [#/Vol] 4.53 10*6/uL [facility] WBC (Bld) [#/Vol] 3.42 10*3/uL Low 3.73 - 10. 10 K/uL [facility] Hematocrit (Bld) [Volume fraction] 39.4 % Low 39.6-48.8 [facility] Comment on above: Performed By: #### NATHANIEL Willis HFP, IPB, MGO #### [facility] (DEFAULT) [address] [place] [address] Hemoglobin (Bld) [Mass/Vol] 12.7 g/dL Low 13.4-16.8 [facility] Comment on above: Performed By: #### C A, CHM7, HFP, IPB, MGO #### [facility] (DEFAULT) [address] [place] [address] 39266 MCV (RBC) [Entitic vol] 87.0 fL Normal 79.0-94.5 [facility] Comment on above: Performed By: #### C A, CHM7, HFP, IPB, MGO #### [facility] (DEFAULT) [address] [place] [address] 69453 Mean Cell Hgb 28.0 pg Normal 26.1-33.3 [facility] Comment on above: Performed By: #### C A, CHM7, HFP, IPB, MGO #### [facility] (DEFAULT) [address] [place] [address] 20042 Mean Cell Hgb Conc 32.2 g/dL Normal 31.9-36.5 [facility] Comment on above: Performed By: #### C A, CHM7, HFP, IPB, MGO #### [facility] (DEFAULT) [address] [place] [address] 36272 Platelet mean volume (Bld) [Entitic vol] 10.2 fL Normal 8.7-12.3 [facility] Comment on above: Performed By: #### C A, CHM7, HFP, IPB, MGO #### [facility] (DEFAULT) [address] [place] [address] 22353 Platelets (Bld) [#/Vol] 157 10*3/uL Normal 146-337 [facility] Comment on above: Performed By: #### C A, CHM7, HFP, IPB, MGO #### [facility] (DEFAULT) [address] [place] [address] 86734 RBC (Bld) [#/Vol] 4.53 10*6/uL Normal 4.38-5.83 [facility] Comment on above: Performed By: #### C A, CHM7, HFP, IPB, MGO #### [facility] (DEFAULT) [address] [place] [address] [place] [address] RBC Distribution 14.0 % Normal 10.9-14.3 [facility] Comment on above: Performed By: #### C A, CHM7, HFP, IPB, MGO #### [facility] (DEFAULT) [address] [place] [address] WBC (Bld) [#/Vol] 3.42 10*3/uL Low 3.73-10.10 [facility] Comment on above: Performed By: #### C A, CHM7, HFP, IPB, MGO #### [facility] (DEFAULT) [address] [place] [address] 06655 CHEM 7 (LYTES,BUN,CREA,GLUC) on 01-21-2024 Anion gap [Moles/Vol] 12 mmol/L 7 - 17 mmol/L [facility] Chloride [Moles/Vol] 107 mmol/L 98 - 10 8 mmol/L [facility] CO2 [Moles/Vol] 26 mmol/L 21 - 31 mmol/L [facility] Creatinine [Mass/Vol] 1.11 mg/dL 0.70 - 1.30 mg/dL [facility] eGFR, CKD-EPI, Male 80 - PINF [facility] Comment on above: Reported eGFR is bas ed on the CKD-EPI 2020 equation using creatinine, age, and sex. Glucose [Mass/Vol] 93 mg/dL 70 - 99 mg/dL [facility] Osmolality Calc [Osmolality] [address] [facility] Potassium [Moles/Vol] 3.9 mmol/L 3.5 - 5.0 mmol/L [facility] Sodium [Moles/Vol] 141 mmol/L 135 - 145 mmol/L [facility] Urea nitrogen [Mass/Vol] 15 mg/dL 7 - 25 mg/dL [facility] Urea nitrogen/Creatinine [Mass ratio] 14 mg/mg [facility] Anion gap [Moles/Vol] 12 mmol/L Normal 7-17 [facility] Comment on above: Performed By: #### C HM7, HFP, MGO #### [facility] (DEFAULT) [address] [place] [address] 94213 Chloride [Moles/Vol] 107 mmol/L Normal 98-108 [facility] Comment on above: Performed By: #### C HM7, HFP, MGO #### [facility] (DEFAULT) [address] [place] [address] 02057 CO2 [Moles/Vol] 26 mmol/L Normal 21-31 [facility] Comment on above: Performed By: #### C HM7, HFP, MGO #### [facility] (DEFAULT) [address] [place] [address] 58752 Creatinine [Mass/Vol] 1.11 mg/dL Normal 0.70-1.30 [facility] Comment on above: Performed By: #### C HM7, HFP, MGO #### [facility] (DEFAULT) [address] [place] [address] 83003 GFR/1.73 sq M.predicted among non-blacks MDRD (S/P/Bld) [Vol rate/Area] 80 mL/min/{1.73_m2} Normal >=60 [facility] Comment on above: Result Comment: Repo rted eGFR is based on the CKD-EPI 2020 equation using creatinine, age, and sex. Performed By: #### C HM7, HFP, MGO #### [facility] (DEFAULT) [address] [place] [address] 89837 Glucose [Mass/Vol] 93 mg/dL Normal 70-99 [facility] Comment on above: Performed By: #### C HM7, HFP, MGO #### [facility] (DEFAULT) [address] [place] [address] 40961 Osmolality [Osmolality] 295 mosm/kg Normal 278-305 [facility] Comment on above: Performed By: #### C HM7, HFP, MGO #### [facility] (DEFAULT) [address] [place] [address] Potassium [Moles/Vol] 3.9 mmol/L Normal 3.5-5.0 [facility] Comment on above: Performed By: #### C HM7, HFP, MGO #### [facility] (DEFAULT) [address] [place] [address] Sodium [Moles/Vol] 141 mmol/L Normal 135-145 [facility] Comment on above: Performed By: #### C HM7, HFP, MGO #### [facility] (DEFAULT) [address] [place] [address] Urea nitrogen [Mass/Vol] 15 mg/dL Normal 7-25 [facility] Comment on above: Performed By: #### C HM7, HFP, MGO #### [facility] (DEFAULT) [address] [place] [address] Urea nitrogen/Creatinine [Mass ratio] 14 mg/mg Normal [facility] Comment on above: Performed By: #### Chinedu HM7, HFP, MGO #### [facility] (DEFAULT) [address] [place] [address] 17298 Cardiac catheterization stud yOrdered By: Kelvin Donohue on 01-21-2024 Body surface area Derived from formula 2.[address] [facility] Work Phone: 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 Section of Advanced Heart Failure and Transplantation Division of Cardiovascular Diseases [facility] [email or web address] INVASIVE CARDIOVASCULAR PROC EDUREon 01-21-2024 INVASIVE [...] with fistula occlusion Kelvin Donohue MD, MPH Manager Performance of Internal Medicine. Section of Advanced Heart Failure and Transplantation Division of Cardiovascular Diseases [facility] [email or web address] Table formatting from the original result was not included. Images from the original result were not included. George Styles Invasive Cardiology Cath Procedure Ordering Physician: KELVIN PACHECO Order #: [id number] Study Date: 01/20/2024 Patient Information Name MRN Description George Styles [id number] 53 y.o. male Location Name Address [address] [address] Physicians Panel Physicians Referring Physician Case Authorizing [...] with fistula occlusion Kelvin Donohue MD, MPH Manager Performance of Internal Medicine. Section of Advanced Heart Failure and Transplantation Division of Cardiovascular Diseases [facility] [email or web address] Diagnosis Date Comment Source Acute renal failure CAD (coronary artery disease) Cirrhosis Dialysis patient T, Th, Sa- Started 06/01/2018 End stage renal disease 06/01/2018 Essential hypertension, benign Hepatic encephalopathy History of blood transfusion Liver cirrhosis Procedure The risks and alternatives of the procedure and sedation were explained. Informed consent was obtained. The patient was brought to the dairy laboratory technician and placed on the table. The planned puncture sites were prepped and draped in the usual sterile fashion. Fluoro Dose Fluoro Dose: 0.2 Gy-cm^2 Complications Complications documented before study signed (01/21/2024 4:05 PM) No complications were associated with this study. Documented by LU Costello - 01/20/2024 11:09 AM Cardiac Attenuator Attending Physician Statement and Signature I have [...] Data HR (bpm) TDCO (L/min) TDCI (L/min/m2) Ojhn CO (L/min) John CI (L/min/m2) SVR (dsc-5) PVR-CAMARGO (Holden unit) Hemo Outputs 7.1 3.5 Hemo Resistances 1.27 Blood O (more content not included)... Normal [facility] MAGNESIUMon 01-21-2024 Interpretation and review of laboratory results Abnormal [facility] Magnesium [Mass/Vol] 1.5 mg/dL Low 1.6 - 2 .6 mg/dL [facility] Magnesium [Mass/Vol] 1.5 mg/dL Low 1.6-2.6 [facility] Comment on above: Performed By: #### C HM7, HFP, MGO #### [facility] (DEFAULT) [address] [place] [address] No Panel Informationon 01-[address] [facility] TACROLIMUS LEVEL, TROUGH (MI E DRUG LEVEL)on 01-21-2024 Interpretation and review of laboratory results Normal [facility] Tacrolimus (Bld) [Mass/Vol] 7.2 ng/mL Bone Marrow Transplant: 4.0-12.0, Therapeutic: 5.0-15.[address] [facility] Method performed is a chemiluminescent microparticle immunoasssay on the [employer] i2000. The range is based on experience at [facility] and users should be aware that target concentrations vary widely depending on concomitant therapy, time post-transplant, and desired degree of immunosuppression. [facility] Tacrolimus, Trough 7.2 ng/mL Normal Bone Susana ow Transplant: 4.0-12.0, Therapeutic: 5.0-15.0 [facility] Comment on above: Order Comment: Pleas e draw at specified interval PRIOR to dose. Do not hold dose to wait for level. Specimens batched twice per day, (M-F) and once per day weekendsMethod performed is a chemiluminescent microparticle immunoasssay on the [employer] Super[employer] i2000.The range is based on experience at [facility] and users should be aware that target concentrations vary widely depending on concomitant therapy, time post-transplant, and desired degree of immunosuppression. Performed By: #### C A, CHM7, HFP, IPB, MGO #### [facility] (DEFAULT) [address] [place] [address] CBC,PLATELETSon 01-20-2024 Erythrocyte distribution width (RBC) [Ratio] 13.8 % 10.9 - 14.3 % [facility] Hematocrit (Bld) [Volume fraction] 38.9 % Low 39.6 - 48.8 % [facility] Hemoglobin (Bld) [Mass/Vol] 12.5 g/dL Low 13.4 - 16.8 g/dL [facility] Interpretation and review of laboratory results Abnormal [facility] MCH (RBC) [Entitic mass] 28.0 pg 26.1 - 33.[address] [facility] MCHC (RBC) [Mass/Vol] 32.1 g/dL 31.9 - 36.5 g/dL [facility] MCV (RBC) [Entitic vol] 87.2 fL 79.0 - 94.[address] [facility] Platelet mean volume (Bld) [Entitic vol] 10.2 fL 8.7 - 12.[address] [facility] Platelets (Bld) [#/Vol] 166 10*3/uL 146 - 337 K/uL [facility] RBC (Bld) [#/Vol] 4.46 10*6/uL [facility] WBC (Bld) [#/Vol] 3.79 10*3/uL 3.73 - 10. 10 K/uL [facility] Hematocrit (Bld) [Volume fraction] 38.9 % Low 39.6-48.8 [facility] Comment on above: Performed By: #### C Tray, CHM7, HFP, IPB, MGO #### [facility] (DEFAULT) [address] [place] [address] 67722 Hemoglobin (Bld) [Mass/Vol] 12.5 g/dL Low 13.4-16.8 [facility] Comment on above: Performed By: #### Chinedu Feliz, CHM7, HFP, IPB, MGO #### [facility] (DEFAULT) [address] [place] [address] 37093 MCV (RBC) [Entitic vol] 87.2 fL Normal 79.0-94.5 [facility] Comment on above: Performed By: #### C Tray, CHM7, HFP, IPB, MGO #### [facility] (DEFAULT) [address] [place] [address] 05878 Mean Cell Hgb 28.0 pg Normal 26.1-33.3 [facility] Comment on above: Performed By: #### Chinedu Feliz, CHM7, HFP, IPB, MGO #### [facility] (DEFAULT) [address] [place] [address] 53313 Mean Cell Hgb Conc 32.1 g/dL Normal 31.9-36.5 [facility] Comment on above: Performed By: #### C A, CHM7, HFP, IPB, MGO #### [facility] (DEFAULT) [address] [place] [address] 03011 Platelet mean volume (Bld) [Entitic vol] 10.2 fL Normal 8.7-12.3 [facility] Comment on above: Performed By: #### C A, CHM7, HFP, IPB, MGO #### [facility] (DEFAULT) [address] [place] [address] 45349 Platelets (Bld) [#/Vol] 166 10*3/uL Normal 146-337 [facility] Comment on above: Performed By: #### C A, CHM7, HFP, IPB, MGO #### [facility] (DEFAULT) [address] [place] [address] 00984 RBC (Bld) [#/Vol] 4.46 10*6/uL Normal 4.38-5.83 [facility] Comment on above: Performed By: #### C A, CHM7, HFP, IPB, MGO #### [facility] (DEFAULT) [address] [place] [address] 15487 RBC Distribution 13.8 % Normal 10.9-14.3 [facility] Comment on above: Performed By: #### C A, CHM7, HFP, IPB, MGO #### [facility] (DEFAULT) [address] [place] [address] 95332 WBC (Bld) [#/Vol] 3.79 10*3/uL Normal 3.73-10.10 [facility] Comment on above: Performed By: #### C A, CHM7, HFP, IPB, MGO #### [facility] (DEFAULT) [address] [place] [address] 76481 CHEM 7 (LYTES,BUN,CREA,GLUC) on 01-20-2024 Anion gap [Moles/Vol] 12 mmol/L 7 - 17 mmol/L [facility] Chloride [Moles/Vol] 105 mmol/L 98 - 10 8 mmol/L [facility] CO2 [Moles/Vol] 28 mmol/L 21 - 31 mmol/L [facility] Creatinine [Mass/Vol] 1.12 mg/dL 0.70 - 1.30 mg/dL [facility] eGFR, CKD-EPI, Male 79 - PINF [facility] Comment on above: Reported eGFR is bas ed on the CKD-EPI 2020 equation using creatinine, age, and sex. Glucose [Mass/Vol] 88 mg/dL 70 - 99 mg/dL [facility] Osmolality Calc [Osmolality] [address] [facility] Potassium [Moles/Vol] 3.8 mmol/L 3.5 - 5.0 mmol/L [facility] Sodium [Moles/Vol] 141 mmol/L 135 - 145 mmol/L [facility] Urea nitrogen [Mass/Vol] 15 mg/dL 7 - 25 mg/dL [facility] Urea nitrogen/Creatinine [Mass ratio] 13 mg/mg [facility] Anion gap [Moles/Vol] 12 mmol/L Normal 7-17 [facility] Comment on above: Performed By: #### C HM7, HFP, MGO #### [facility] (DEFAULT) [address] [address] Chloride [Moles/Vol] 105 mmol/L Normal 98-108 [facility] Comment on above: Performed By: #### Chinedu HM7, HFP, MGO #### [facility] (DEFAULT) [address] [address] CO2 [Moles/Vol] 28 mmol/L Normal 21-31 [facility] Comment on above: Performed By: #### C HM7, HFP, MGO #### [facility] (DEFAULT) [address] [address] Creatinine [Mass/Vol] 1.12 mg/dL Normal 0.70-1.30 [facility] Comment on above: Performed By: #### Chinedu HM7, HFP, MGO #### [facility] (DEFAULT) [address] [place] [address] 51471 GFR/1.73 sq M.predicted among non-blacks MDRD (S/P/Bld) [Vol rate/Area] 79 mL/min/{1.73_m2} Normal >=60 [facility] Comment on above: Result Comment: Repo rted eGFR is based on the CKD-EPI 2020 equation using creatinine, age, and sex. Performed By: #### C HM7, HFP, MGO #### [facility] (DEFAULT) [address] [place] [address] 47727 Glucose [Mass/Vol] 88 mg/dL Normal 70-99 [facility] Comment on above: Performed By: #### Chinedu HM7, HFP, MGO #### [facility] (DEFAULT) [address] [place] [address] 46276 Osmolality [Osmolality] 294 mosm/kg Normal 278-305 [facility] Comment on above: Performed By: #### C HM7, HFP, MGO #### [facility] (DEFAULT) [address] [place] [address] 27404 Potassium [Moles/Vol] 3.8 mmol/L Normal 3.5-5.0 [facility] Comment on above: Performed By: #### C HM7, HFP, MGO #### [facility] (DEFAULT) [address] [place] [address] 69517 Sodium [Moles/Vol] 141 mmol/L Normal 135-145 [facility] Comment on above: Performed By: #### C HM7, HFP, MGO #### [facility] (DEFAULT) [address] [place] [address] 26363 Urea nitrogen [Mass/Vol] 15 mg/dL Normal 7-25 [facility] Comment on above: Performed By: #### C HM7, HFP, MGO #### [facility] (DEFAULT) [address] [place] [address] 68613 Urea nitrogen/Creatinine [Mass ratio] 13 mg/mg Normal [facility] Comment on above: Performed By: #### C HM7, HFP, MGO #### [facility] (DEFAULT) [address] [place] [address] Cardiac catheterization stud yon 01-20-[address] [facility] Radiology Study observation (narrative) [facility] Radiology Study observation (narrative) [facility] EBV BY PCR, QUANTITATIVE,BLO ODOrdered By: Charlotte Jensen on 01-20-2024 EBV DNA ESTELITA+probe (Unsp spec) [#/Vol] NINF [facility] Interpretation and review of laboratory results Normal [facility] This test was performed using a real time PCR assay. The dynamic range for this assay is 1000-5,000,000 IU/mL. A result <1000 IU/mL does not rule out the presence of EBV DNA in quantities below the sensitivity of this assay. This test was developed and its performance characteristics determined by [facility]. It has not been cleared or approved by the FDA. The laboratory is regulated under CLIA as qualified to perform high-complexity testing. This test is used for clinical purposes. It should not be regarded as investigational or for research. [facility] HEPATIC FUNCTION PANELon Albumin [Mass/Vol] 3.7 g/dL 3.5 - 5.0 g/dL [facility] ALP [Catalytic activity/Vol] 73 U/L 32 - 126 U/L [facility] ALT [Catalytic activity/Vol] 12 U/L 10 - 52 U/L [facility] AST [Catalytic activity/Vol] 19 U/L 10 - 39 U/L [facility] Bilirubin [Mass/Vol] 2.1 mg/dL High NINF - 1.5 mg/dL [facility] Bilirubin.direct [Mass/Vol] 0.5 mg/dL High NINF - 0.3 mg/dL [facility] Interpretation and review of laboratory results Abnormal [facility] Protein [Mass/Vol] 6.1 g/dL Low 6.4 - 8.3 g/dL [facility] Albumin [Mass/Vol] 3.7 g/dL Normal 3.5-5.0 [facility] Comment on above: Performed By: #### C HM7, HFP, MGO #### [facility] (DEFAULT) [address] [place] [address] 60390 ALP [Catalytic activity/Vol] 73 U/L Normal 32-126 [facility] Comment on above: Performed By: #### C HM7, HFP, MGO #### [facility] (DEFAULT) [address] [place] [address] 19167 ALT [Catalytic activity/Vol] 12 U/L Normal 10-52 [facility] Comment on above: Performed By: #### C HM7, HFP, MGO #### [facility] (DEFAULT) [address] [place] [address] 44643 AST [Catalytic activity/Vol] 19 U/L Normal 10-39 [facility] Comment on above: Performed By: #### C HM7, HFP, MGO #### [facility] (DEFAULT) [address] [place] [address] 03964 Bilirubin [Mass/Vol] 2.1 mg/dL High <1.5 [facility] Comment on above: Performed By: #### C HM7, HFP, MGO #### [facility] (DEFAULT) [address] [place] [address] 57903 Bilirubin.indirect [Mass/Vol] 0.5 mg/dL High <0.3 [facility] Comment on above: Performed By: #### C HM7, HFP, MGO #### [facility] (DEFAULT) [address] [place] [address] 92276 Protein [Mass/Vol] 6.1 g/dL Low 6.4-8.3 [facility] Comment on above: Performed By: #### C HM7, HFP, MGO #### [facility] (DEFAULT) [address] [place] [address] 94624 ITRACONAZOLE LEVELon 024 Hydroxyitraconazole 7.6 mcg/mL Normal [facility] Comment on above: Order Comment: Pleas e draw level at specified interval PRIOR to dose. Result Comment: REFERENCE VALUE No therapeutic range established; activity and serum concentration are similar to parent drug. ADDITIONAL INFORMATION This test was developed and its performance characteristics determined by [facility] in a manner consistent with CLIA requirements. This test has not been cleared or approved by the [place].S. Food and Drug Administration. Test Performed by: [facility] [place] [address] Web Site Specialist: Rosendo Bose M.D. Ph.D.; CLIA# [id number] Performed By: #### C Tray, CHM7, HFP, IPB, MGO #### [facility] (DEFAULT) [address] [place] [address] Itraconazole 6.0 mcg/mL Normal [facility] Comment on above: Order Comment: Pleas e draw level at specified interval PRIOR to dose. Result Comment: REFERENCE VALUE >0.5 (localized infection), >1.0 (systemic infection) Performed By: #### C A, CHM7, HFP, IPB, MGO #### [facility] (DEFAULT) [address] [place] [id number] MAGNESIUMon 01-20-2024 Interpretation and review of laboratory results Normal [facility] Magnesium [Mass/Vol] 1.6 mg/dL 1.6 - 2 .6 mg/dL [facility] Magnesium [Mass/Vol] 1.6 mg/dL Normal 1.6-2.6 [facility] Comment on above: Performed By: #### C JASMYNE, HFP, MGO #### [facility] (DEFAULT) [address] [place] [address] No Panel Informationon 01-[address] [facility] POCT CO-OXIMETRYon Hemoglobin (Bld) [Mass/Vol] 12.8 g/dL Low 13.4 - 16.8 g/dL [facility] Interpretation and review of laboratory results Abnormal [facility] Oxyhemoglobin 69 % Low 94 - 98 % [facility] Ordering physician notified. Test performed at address of the patient encounter. [facility] Hemoglobin (Bld) [Mass/Vol] 13.3 g/dL Low 13.4 - 16.8 g/dL [facility] Interpretation and review of laboratory results Abnormal [facility] Oxyhemoglobin 69 % Low 94 - 98 % [facility] Ordering physician notified. Test performed at address of the patient encounter. [facility] PT,INR,PTTon 01-20-2024 aPTT Coag (PPP) [Time] 30.6 s [facility] INR Coag (Bld) [Relative time] 1.2 {INR} High 0.9 - 1.[address] [facility] Interpretation and review of laboratory results Abnormal [facility] PT Coag (PPP) [Time] 15.5 s High [facility] aPTT Coag (Bld) [Time] 30.6 s Normal 24.0-34.3 [facility] Comment on above: Performed By: #### NATHANIEL Willis, TAVO, IPB, MGO #### [facility] (DEFAULT) [address] [place] [address] INR Coag (PPP) [Relative time] 1.2 {INR} High 0.9-1.1 [facility] Comment on above: Performed By: #### C A, CHM7, HFP, IPB, MGO #### [facility] (DEFAULT) [address] [place] [address] PT Coag (PPP) [Time] 15.5 s High 11.9-14.2 [facility] Comment on above: Performed By: #### C Tray, CHM7, HFP, IPB, MGO #### [facility] (DEFAULT) [address] [place] [address] 15312 TACROLIMUS LEVEL, TROUGH (MI E DRUG LEVEL)Ordered By: Yanira Marcum on 01-20-2024 Interpretation and review of laboratory results Normal [facility] Tacrolimus (Bld) [Mass/Vol] 7.7 ng/mL Bone Marrow Transplant: 4.0-12.0, Therapeutic: 5.0-15.[address] [facility] Method performed is a chemiluminescent microparticle immunoasssay on the [employer] i2000. The range is based on experience at [facility] and users should be aware that target concentrations vary widely depending on concomitant therapy, time post-transplant, and desired degree of immunosuppression. [facility] TACROLIMUS LEVEL, TROUGH (MI E DRUG LEVEL)on 01-20-2024 Tacrolimus, Trough 7.7 ng/mL Normal Bone Susana ow Transplant: 4.0-12.0, Therapeutic: 5.0-15.0 [facility] Comment on above: Order Comment: Pleas e draw at specified interval PRIOR to dose. Do not hold dose to wait for level. Specimens batched twice per day, (M-F) and once per day weekendsMethod performed is a chemiluminescent microparticle immunoasssay on the [employer] i2000.The range is based on experience at [facility] and users should be aware that target concentrations vary widely depending on concomitant therapy, time post-transplant, and desired degree of immunosuppression. Performed By: #### C Tray, CHM7, HFP, IPB, MGO #### [facility] (DEFAULT) [address] [place] [address]83 CBC,PLATELETSon 01-19-2024 Erythrocyte distribution width (RBC) [Ratio] 13.9 % 10.9 - 14.3 % [facility] Hematocrit (Bld) [Volume fraction] 37.5 % Low 39.6 - 48.8 % [facility] Hemoglobin (Bld) [Mass/Vol] 12.1 g/dL Low 13.4 - 16.8 g/dL [facility] Interpretation and review of laboratory results Abnormal [facility] MCH (RBC) [Entitic mass] 28.3 pg 26.1 - 33.[address] [facility] MCHC (RBC) [Mass/Vol] 32.3 g/dL 31.9 - 36.5 g/dL [facility] MCV (RBC) [Entitic vol] 87.8 fL 79.0 - 94.[address] [facility] Platelet mean volume (Bld) [Entitic vol] 10.4 fL 8.7 - 12.[address] [facility] Platelets (Bld) [#/Vol] 163 10*3/uL 146 - 337 K/uL [facility] RBC (Bld) [#/Vol] 4.27 10*6/uL Low [facility] WBC (Bld) [#/Vol] 3.69 10*3/uL Low 3.73 - 10. 10 K/uL [facility] Hematocrit (Bld) [Volume fraction] 37.5 % Low 39.6-48.8 [facility] Comment on above: Performed By: #### NATHANIEL Willis, TAVO, JO ANN, MGO #### [facility] (DEFAULT) [address] [address] Hemoglobin (Bld) [Mass/Vol] 12.1 g/dL Low 13.4-16.8 [facility] Comment on above: Performed By: #### NATHANIEL Willis, TAVO, IPB, MGO #### [facility] (DEFAULT) [address] [place] [address] 74352 MCV (RBC) [Entitic vol] 87.8 fL Normal 79.0-94.5 [facility] Comment on above: Performed By: #### C A, CHM7, HFP, IPB, MGO #### [facility] (DEFAULT) [address] [place] [address] 13970 Mean Cell Hgb 28.3 pg Normal 26.1-33.3 [facility] Comment on above: Performed By: #### C A, CHM7, HFP, IPB, MGO #### [facility] (DEFAULT) [address] [place] [address] 07022 Mean Cell Hgb Conc 32.3 g/dL Normal 31.9-36.5 [facility] Comment on above: Performed By: #### C A, CHM7, HFP, IPB, MGO #### [facility] (DEFAULT) [address] [place] [address] 08350 Platelet mean volume (Bld) [Entitic vol] 10.4 fL Normal 8.7-12.3 [facility] Comment on above: Performed By: #### C A, CHM7, HFP, IPB, MGO #### [facility] (DEFAULT) [address] [place] [address] 93746 Platelets (Bld) [#/Vol] 163 10*3/uL Normal 146-337 [facility] Comment on above: Performed By: #### C A, CHM7, HFP, IPB, MGO #### [facility] (DEFAULT) [address] [place] [address] 88057 RBC (Bld) [#/Vol] 4.27 10*6/uL Low 4.38-5.83 [facility] Comment on above: Performed By: #### C A, CHM7, HFP, IPB, MGO #### [facility] (DEFAULT) [address] [address] RBC Distribution 13.9 % Normal 10.9-14.3 [facility] Comment on above: Performed By: #### C A, CHM7, HFP, IPB, MGO #### [facility] (DEFAULT) [address] [place] [address] WBC (Bld) [#/Vol] 3.69 10*3/uL Low 3.73-10.10 [facility] Comment on above: Performed By: #### C A, CHM7, HFP, IPB, MGO #### [facility] (DEFAULT) [address] [place] [address] CHEM 7 (LYTES,BUN,CREA,GLUC) on 01-19-2024 Anion gap [Moles/Vol] 14 mmol/L 7 - 17 mmol/L [facility] Chloride [Moles/Vol] 106 mmol/L 98 - 10 8 mmol/L [facility] CO2 [Moles/Vol] 24 mmol/L 21 - 31 mmol/L [facility] Creatinine [Mass/Vol] 1.13 mg/dL 0.70 - 1.30 mg/dL [facility] eGFR, CKD-EPI, Male 78 - PINF [facility] Comment on above: Reported eGFR is bas ed on the CKD-EPI 2020 equation using creatinine, age, and sex. Glucose [Mass/Vol] 86 mg/dL 70 - 99 mg/dL [facility] Osmolality Calc [Osmolality] 293 [facility] Potassium [Moles/Vol] 3.8 mmol/L 3.5 - 5.0 mmol/L [facility] Sodium [Moles/Vol] 140 mmol/L 135 - 145 mmol/L [facility] Urea nitrogen [Mass/Vol] 16 mg/dL 7 - 25 mg/dL [facility] Urea nitrogen/Creatinine [Mass ratio] 14 mg/mg [facility] Anion gap [Moles/Vol] 14 mmol/L Normal 7-17 [facility] Comment on above: Performed By: #### C A, CHM7, HFP, IPB, MGO #### [facility] (DEFAULT) [address] [place] [address] Chloride [Moles/Vol] 106 mmol/L Normal 98-108 [facility] Comment on above: Performed By: #### C Tray, CHM7, HFP, IPB, MGO #### [facility] (DEFAULT) [address] [place] [address] 13167 CO2 [Moles/Vol] 24 mmol/L Normal 21-31 [facility] Comment on above: Performed By: #### C Tray, CHM7, HFP, IPB, MGO #### [facility] (DEFAULT) [address] [place] [address] 64856 Creatinine [Mass/Vol] 1.13 mg/dL Normal 0.70-1.30 [facility] Comment on above: Performed By: #### C Tray, CHM7, HFP, IPB, MGO #### [facility] (DEFAULT) [address] [place] [address] 15634 GFR/1.73 sq M.predicted among non-blacks MDRD (S/P/Bld) [Vol rate/Area] 78 mL/min/{1.73_m2} Normal >=60 [facility] Comment on above: Result Comment: Repo rted eGFR is based on the CKD-EPI 2020 equation using creatinine, age, and sex. Performed By: #### C Tray, CHM7, HFP, IPB, MGO #### [facility] (DEFAULT) [address] [place] [address] 09483 Glucose [Mass/Vol] 86 mg/dL Normal 70-99 [facility] Comment on above: Performed By: #### C Tray, CHM7, HFP, IPB, MGO #### [facility] (DEFAULT) [address] [place] [address] 08876 Osmolality [Osmolality] 293 mosm/kg Normal 278-305 [facility] Comment on above: Performed By: #### C A, CHM7, HFP, IPB, MGO #### [facility] (DEFAULT) [address] [place] [address] 17905 Potassium [Moles/Vol] 3.8 mmol/L Normal 3.5-5.0 [facility] Comment on above: Performed By: #### C A, CHM7, HFP, IPB, MGO #### [facility] (DEFAULT) [address] [place] [address] 63062 Sodium [Moles/Vol] 140 mmol/L Normal 135-145 [facility] Comment on above: Performed By: #### C A, CHM7, HFP, IPB, MGO #### [facility] (DEFAULT) [address] [place] [address] 38348 Urea nitrogen [Mass/Vol] 16 mg/dL Normal 7-25 [facility] Comment on above: Performed By: #### C A, CHM7, HFP, IPB, MGO #### [facility] (DEFAULT) [address] [place] [address] Urea nitrogen/Creatinine [Mass ratio] 14 mg/mg Normal [facility] Comment on above: Performed By: #### C A, CHM7, HFP, IPB, MGO #### [facility] (DEFAULT) [address] [place] [address] 48129 EBV BY PCR, QUANTITATIVE,BLO ODon 01-19-2024 Ebv By Pcr, Quant, Blood <1000 Normal <1000 [facility] Comment on above: Order Comment: This test was performed using a real time PCR assay. The dynamic range for this assay is 1000-5,000,000 IU/mL. A result <1000 IU/mL does not rule out the presence of EBV DNA in quantities below the sensitivity of this assay. This test was developed and its performance characteristics determined by [facility]. It has not been cleared or approved by the FDA. The laboratory is regulated under CLIA as qualified to perform high-complexity testing. This test is used for clinical purposes. It should not be regarded as investigational or for research. Performed By: #### C A, CHM7, HFP, IPB, MGO #### [facility] (DEFAULT) [address] [place] [address] 59598 HISTOPLASMA AND BLASTOMYCES ANTIGEN, ENZYME IMMUNOASSAY, SERMon 01-19-2024 Histoplasma/Blastomyce s Ag Result Not detected Not Detected [facility] Comment on above: No antigen from Hist oplasma or Blastomyces detected. False negative results may occur depending on extent of disease, and/or site of infection. Repeat testing on a new specimen if clinically indicated. Histoplasma/Blastomyce s Ag Value Not detected ng/mL [facility] Comment on above: ADDITIONAL INFORMATION This test was developed and its performance characteristics determined by [facility] in a manner consistent with CLIA requirements. This test has not been cleared or approved by the U.S. Food and Drug Administration. Test Performed by: [facility] - [address] [address] Web Site Specialist: Rosendo Bose M.D. Ph.D.; CLIA# [id number] [facility] MAGNESIUMon 01-19-2024 Interpretation and review of laboratory results Normal [facility] Magnesium [Mass/Vol] 1.8 mg/dL 1.6 - 2 .6 mg/dL [facility] Magnesium [Mass/Vol] 1.8 mg/dL Normal 1.6-2.6 [facility] Comment on above: Performed By: #### C A, CHM7, HFP, IPB, MGO #### [facility] (DEFAULT) [address] [place] [address] No Panel Informationon 01-[address] [facility] TACROLIMUS LEVEL, TROUGH (MI E DRUG LEVEL)Ordered By: Raymundo Mehta on 01-19-2024 Interpretation and review of laboratory results Normal [facility] Tacrolimus (Bld) [Mass/Vol] 6.8 ng/mL Bone Marrow Transplant: 4.0-12.0, Therapeutic: 5.0-15.[address] [facility] Method performed is a chemiluminescent microparticle immunoasssay on the [employer] i2000. The range is based on experience at [facility] and users should be aware that target concentrations vary widely depending on concomitant therapy, time post-transplant, and desired degree of immunosuppression. [facility] TACROLIMUS LEVEL, TROUGH (MI E DRUG LEVEL)on 01-19-2024 Tacrolimus, Trough 6.8 ng/mL Normal Bone Susana ow Transplant: 4.0-12.0, Therapeutic: 5.0-15.0 [facility] Comment on above: Order Comment: Pleas e draw at specified interval PRIOR to dose. Do not hold dose to wait for level. Specimens batched twice per day, (M-F) and once per day weekendsMethod performed is a chemiluminescent microparticle immunoasssay on the [employer] i2000.The range is based on experience at [facility] and users should be aware that target concentrations vary widely depending on concomitant therapy, time post-transplant, and desired degree of immunosuppression. Performed By: #### C HM7, HFP, MGO #### [facility] (DEFAULT) [address] [place] [address] US AV fistulaOrdered By: Diana Reyes on 01-19-[address] [facility] Work Phone: US AV fistulaon 01-19-2024 Radiology Study observation (narrative) [facility] AFP TUMOR MARKEROrdered By: Francisca Alaniz on 01-18-2024 AFP.tumor marker [Mass/Vol] ng/mL NINF - 8.1 ng/mL [facility] Comment on above: This test was perfor med on the [employer] IM Immunoassay platform by [employer] which is a two-site sandwich chemiluminescent immunoassay. It is important to note that assays using different manufacturers and/or methods may not be comparable. Interpretation and review of laboratory results Normal [facility] CBC,PLATELETSon 01-18-2024 Erythrocyte distribution width (RBC) [Ratio] 13.9 % 10.9 - 14.3 % [facility] Hematocrit (Bld) [Volume fraction] 38.4 % Low 39.6 - 48.8 % [facility] Hemoglobin (Bld) [Mass/Vol] 12.1 g/dL Low 13.4 - 16.8 g/dL [facility] Interpretation and review of laboratory results Abnormal [facility] MCH (RBC) [Entitic mass] 27.8 pg 26.1 - 33.[address] [facility] MCHC (RBC) [Mass/Vol] 31.5 g/dL Low 31.9 - 36.5 g/dL [facility] MCV (RBC) [Entitic vol] 88.3 fL 79.0 - 94.[address] [facility] Platelet mean volume (Bld) [Entitic vol] 10.4 fL 8.7 - 12.[address] [facility] Platelets (Bld) [#/Vol] 183 10*3/uL 146 - 337 K/uL [facility] RBC (Bld) [#/Vol] 4.35 10*6/uL Low [facility] WBC (Bld) [#/Vol] 3.66 10*3/uL Low 3.73 - 10. 10 K/uL [facility] Hematocrit (Bld) [Volume fraction] 38.4 % Low 39.6-48.8 [facility] Comment on above: Performed By: #### C Tray, CHM7, HFP, IPB, MGO #### [facility] (DEFAULT) [address] [address] Hemoglobin (Bld) [Mass/Vol] 12.1 g/dL Low 13.4-16.8 [facility] Comment on above: Performed By: #### C Tray, CHM7, HFP, IPB, MGO #### [facility] (DEFAULT) [address] [place] [address] 26497 MCV (RBC) [Entitic vol] 88.3 fL Normal 79.0-94.5 [facility] Comment on above: Performed By: #### Chinedu Feliz, CHM7, HFP, IPB, MGO #### [facility] (DEFAULT) [address] [place] [address] 90486 Mean Cell Hgb 27.8 pg Normal 26.1-33.3 [facility] Comment on above: Performed By: #### C Tray, CHM7, HFP, IPB, MGO #### [facility] (DEFAULT) [address] [place] [address] 34420 Mean Cell Hgb Conc 31.5 g/dL Low 31.9-36.5 [facility] Comment on above: Performed By: #### C A, CHM7, HFP, IPB, MGO #### [facility] (DEFAULT) [address] [place] [address] 46064 Platelet mean volume (Bld) [Entitic vol] 10.4 fL Normal 8.7-12.3 [facility] Comment on above: Performed By: #### C A, CHM7, HFP, IPB, MGO #### [facility] (DEFAULT) [address] [place] [address] 83137 Platelets (Bld) [#/Vol] 183 10*3/uL Normal 146-337 [facility] Comment on above: Performed By: #### C A, CHM7, HFP, IPB, MGO #### [facility] (DEFAULT) [address] [place] [address] 63394 RBC (Bld) [#/Vol] 4.35 10*6/uL Low 4.38-5.83 [facility] Comment on above: Performed By: #### C A, CHM7, HFP, IPB, MGO #### [facility] (DEFAULT) [address] [place] [address] 32576 RBC Distribution 13.9 % Normal 10.9-14.3 [facility] Comment on above: Performed By: #### C A, CHM7, HFP, IPB, MGO #### [facility] (DEFAULT) [address] [place] [address] 44556 WBC (Bld) [#/Vol] 3.66 10*3/uL Low 3.73-10.10 [facility] Comment on above: Performed By: #### C A, CHM7, HFP, IPB, MGO #### [facility] (DEFAULT) [address] [place] [address] CHEM 7 (LYTES,BUN,CREA,GLUC) on 01-18-2024 Anion gap [Moles/Vol] 11 mmol/L 7 - 17 mmol/L [facility] Chloride [Moles/Vol] 108 mmol/L 98 - 10 8 mmol/L [facility] CO2 [Moles/Vol] 26 mmol/L 21 - 31 mmol/L [facility] Creatinine [Mass/Vol] 1.00 mg/dL 0.70 - 1.30 mg/dL [facility] eGFR, CKD-EPI, Male - PINF [facility] Comment on above: Reported eGFR is bas ed on the CKD-EPI 2020 equation using creatinine, age, and sex. Glucose [Mass/Vol] 89 mg/dL 70 - 99 mg/dL [facility] Osmolality Calc [Osmolality] [address] [facility] Potassium [Moles/Vol] 3.9 mmol/L 3.5 - 5.0 mmol/L [facility] Sodium [Moles/Vol] 141 mmol/L 135 - 145 mmol/L [facility] Urea nitrogen [Mass/Vol] 16 mg/dL 7 - 25 mg/dL [facility] Urea nitrogen/Creatinine [Mass ratio] 16 mg/mg [facility] Anion gap [Moles/Vol] 11 mmol/L Normal 7-17 [facility] Comment on above: Performed By: #### C HMJessica, HFP, MGO #### [facility] (DEFAULT) [address] [place] [address] Chloride [Moles/Vol] 108 mmol/L Normal 98-108 [facility] Comment on above: Performed By: #### Chinedu HM7, HFP, MGO #### [facility] (DEFAULT) [address] [place] [address] CO2 [Moles/Vol] 26 mmol/L Normal 21-31 [facility] Comment on above: Performed By: #### Chinedu HM7, HFP, MGO #### [facility] (DEFAULT) [address] [place] [address] 25995 Creatinine [Mass/Vol] 1.00 mg/dL Normal 0.70-1.30 [facility] Comment on above: Performed By: #### C HM7, HFP, MGO #### [facility] (DEFAULT) [address] [place] [address] 47788 eGFR, CKD-EPI, Male > Normal >=60 [facility] Comment on above: Result Comment: Repo rted eGFR is based on the CKD-EPI 2020 equation using creatinine, age, and sex. Performed By: #### C HM7, HFP, MGO #### [facility] (DEFAULT) [address] [place] [address] 46688 Glucose [Mass/Vol] 89 mg/dL Normal 70-99 [facility] Comment on above: Performed By: #### C HM7, HFP, MGO #### [facility] (DEFAULT) [address] [place] [address] 21216 Osmolality [Osmolality] 295 mosm/kg Normal 278-305 [facility] Comment on above: Performed By: #### C HM7, HFP, MGO #### [facility] (DEFAULT) [address] [place] [address] 95402 Potassium [Moles/Vol] 3.9 mmol/L Normal 3.5-5.0 [facility] Comment on above: Performed By: #### C HM7, HFP, MGO #### [facility] (DEFAULT) [address] [place] [address] 82544 Sodium [Moles/Vol] 141 mmol/L Normal 135-145 [facility] Comment on above: Performed By: #### C HM7, HFP, MGO #### [facility] (DEFAULT) [address] [place] [address] 08987 Urea nitrogen [Mass/Vol] 16 mg/dL Normal 7-25 [facility] Comment on above: Performed By: #### C HM7, HFP, MGO #### [facility] (DEFAULT) [address] [place] [address] Urea nitrogen/Creatinine [Mass ratio] 16 mg/mg Normal [facility] Comment on above: Performed By: #### C HM7, HFP, MGO #### [facility] (DEFAULT) [address] [place] [address] Cardiac echo study Procedure Ordered By: Gian Carlos on 01-18-2024 Ao ASC index 1.63 cm/m2 [facility] Work Phone: [phone] Ao peak meliton 1.46 m/s [facility] Work Phone: [phone] Ao SOV index 1.56 cm/m2 [facility] Work Phone: [phone] Ao STJ index 1.25 cm/m2 [facility] Work Phone: [phone] Ao VTI 35.[address] [facility] Work Phone: [phone] Ascending aorta 3.39 cm [facility] Work Phone: [phone] AV LVOT peak gradient [address] [facility] Work Phone: [phone] AV mean gradient 5 mmHg [facility] Work Phone: [phone] AV peak gradient 9 mmHG [facility] Work Phone: [phone] AV valve area 3.[address] [facility] Work Phone: [phone] AV Velocity Ratio 0.73 [facility] Work Phone: [phone] VEGA (continuity Vmax) 3.[address] [facility] Work Phone: [phone] VEGA (continuity VTI) 3.[address] [facility] Work Phone: [phone] VEGA index (continuity Vmax) 1.45 m/s [facility] Work Phone: [phone] VEGA index (continuity VTI) 1.49 cm2/m2 [facility] Work Phone: [phone] Avg e' pk meliton 0.07 m/s [facility] Work Phone: [phone] Avg E/e' ratio 19.[address] [facility] Work Phone: [phone] Body surface area Derived from formula 2.08 m2 [facility] Work Phone: [phone] BP EF 62 % [facility] Work Phone: [phone] DI (Vmax) 0.[address] [facility] Work Phone: [phone] DI (VTI) 0.74 m/[address] [facility] Work Phone: [phone] E wave decelartion time 180.[address] [facility] Work Phone: [phone] e' lateral pk meliton 0.0789 m/s [facility] Work Phone: [phone] e' lateral pk meliton 0.08 m/s [facility] Work Phone: [phone] e' septal pk meliton 0.0653 m/s [facility] Work Phone: [phone] e' septal pk meliton 0.07 m/s [facility] Work Phone: [phone] E/A ratio 2.[address] [facility] Work Phone: [phone] E/e' lateral ratio 17.62 [facility] Work Phone: [phone] E/e' septal ratio 21.29 [facility] Work Phone: [phone] EF SP 2CH [address] [facility] Work Phone: [phone] EF SP 4CH 58 [facility] Work Phone: [phone] FS 28 % 28 - 44 % [facility] Work Phone: [phone] IVC ostium 2.30 cm [facility] Work Phone: [phone] IVS 1.11 cm [facility] Work Phone: [phone] LA AREA 2CH 24.36 cm2 [facility] Work Phone: [phone] LA area 4CH 20.[address] [facility] Work Phone: [phone] LA ESV BP (MOD) 64 mL [facility] Work Phone: [phone] LA ESV BP (MOD) index 31 mL/m2 [facility] Work Phone: [phone] LA ESV SP 2CH (MOD) 76 [facility] Work Phone: [phone] LA ESV SP 4CH (MOD) 53 mL [facility] Work Phone: [phone] LV EDV BP [address] [facility] Work Phone: [phone] LV EDV SP 2CH [address] [facility] Work Phone: [phone] LV EDV SP 4CH [address] [facility] Work Phone: [phone] LV ESV BP [address] [facility] Work Phone: [phone] LV ESV SP 2CH 65 mL [facility] Work Phone: [phone] LV ESV SP 4CH 70 mL [facility] Work Phone: [phone] LV mass 254.[address] [facility] Work Phone: [phone] LV Mass Index 122.5 g/m2 [facility] Work Phone: [phone] LV RWT 0.[address] [facility] Work Phone: [phone] LV stroke volume BP (ml) 111 mL [facility] Work Phone: [phone] LV stroke volume index BP 53.37 mL/m2 [facility] Work Phone: [phone] LVIDD 5.[address] [facility] Work Phone: [phone] LVIDS 3.[address] [facility] Work Phone: [phone] LVOT area 4.[address] [facility] Work Phone: [phone] LVOT diameter 2.[address] [facility] Work Phone: [phone] LVOT peak meliton 1.06 m/s [facility] Work Phone: [phone] LVOT peak VTI 26.[address] [facility] Work Phone: [phone] LVOT stroke volume 111 cm3 [facility] Work Phone: [phone] LVOT stroke volume index 53.13 ml/m2 [facility] Work Phone: [phone] Mr max meliton 4.21 m/s [facility] Work Phone: [phone] MR VTI 134.[address] [facility] Work Phone: [phone] MV mean gradient 3 mmHg [facility] Work Phone: [phone] MV peak gradient 11 mmHg [facility] Work Phone: [phone] MV pk A meliton 0.52 m/s [facility] Work Phone: [phone] MV pk E meliton 1.39 m/s [facility] Work Phone: [phone] MV stenosis pressure 1/2 time 58.[address] [facility] Work Phone: [phone] MV valve area by continuity eq 2.[address] [facility] Work Phone: [phone] MV valve area p 1/2 method 3.[address] [facility] Work Phone: [phone] MV VTI 37.[address] [facility] Work Phone: [phone] MVA (continuity VTI) 2.[address] [facility] Work Phone: [facility] AV VTI RATIO PRE STRESS 0.[address] [facility] Work Phone: [facility] ECHO LV BIPLANE SYSTOLIC VOLUME INDEX 33.17 mL/m2 [facility] Work Phone: [facility] ECHO LV BP DIASTOLIC VOLUME INDEX 86.54 mL/m2 [facility] Work Phone: [facility] ECHO MR PEAK GRADIENT 70.[address] [facility] Work Phone: PW 1.[address] [facility] Work Phone: [phone] RA area 4CH (MOD) 14.50 cm2 [facility] Work Phone: RA vol index 4CH (MOD) 18.27 mL/m2 [facility] Work Phone: Right atrium volume 4 chamber method of disks [address] [facility] Work Phone: RV Area diastolic 33.20 cm2 [facility] Work Phone: RV Area systolic 21.30 cm2 [facility] Work Phone: RV basal diam 4.[address] [facility] Work Phone: RV Fractional area change 35.8 % [facility] Work Phone: RV long diam 8.[address] [facility] Work Phone: RV mid diam 3.[address] [facility] Work Phone: RV S' 22.01 cm/s [facility] Work Phone: RVOT peak gradient 4 mmHg [facility] Work Phone: RVOT peak meliton 0.96 m/s [facility] Work Phone: [phone] RVOT peak VTI 20.[address] [facility] Work Phone: [phone] Sinus 3.[address] [facility] Work Phone: [phone] STJ 2.[address] [facility] Work Phone: [phone] Stroke Volume 111 cm/mL [facility] Work Phone: [phone] Stroke volume index 53 [facility] Work Phone: [phone] TAPSE 2.[address] [facility] Work Phone: [phone] [facility] Work Phone: [phone] Cardiac echo study Procedure on 01-18-2024 Left [...] Indications Indications for study: shortness of breath. [facility] Radiology Study observation (narrative) [facility] ECHOCARDIOGRAMon 01-18-2024 Echocardiography ? Left [...] the original result were not included. Facility [facility] Patient Information Patient Name George Styles [...] Role Read Date Gian Carlos MD Echo [place] 01/18/2024 Left Heart Measurements LV - Systole [...] Height We (more content not included)... Normal [facility] HEPATIC FUNCTION PANELon Albumin [Mass/Vol] 3.5 g/dL 3.5 - 5.0 g/dL [facility] ALP [Catalytic activity/Vol] 70 U/L 32 - 126 U/L [facility] ALT [Catalytic activity/Vol] 8 U/L Low 10 - 52 U/L [facility] AST [Catalytic activity/Vol] 20 U/L 10 - 39 U/L [facility] Bilirubin [Mass/Vol] 1.7 mg/dL [facility]/dL [facility] Bilirubin.direct [Mass/Vol] 0.4 mg/dL High NINF - 0.3 mg/dL [facility] Protein [Mass/Vol] 6.0 g/dL Low 6.4 - 8.3 g/dL [facility] Albumin [Mass/Vol] 3.5 g/dL Normal 3.5-5.0 [facility] Comment on above: Performed By: #### C TAVO MEDLEY, MGO #### [facility] (DEFAULT) [address] [place] [address] ALP [Catalytic activity/Vol] 70 U/L Normal 32-126 [facility] Comment on above: Performed By: #### C JASMYNE, TAVO, MGO #### [facility] (DEFAULT) [address] [place] [address]253 ALT [Catalytic activity/Vol] 8 U/L Low 10-52 [facility] Comment on above: Performed By: #### C HM7, HFP, MGO #### [facility] (DEFAULT) [address] [place] [address] 97411 AST [Catalytic activity/Vol] 20 U/L Normal 10-39 [facility] Comment on above: Performed By: #### C HM7, HFP, MGO #### [facility] (DEFAULT) [address] [place] [address] 24031 Bilirubin [Mass/Vol] 1.7 mg/dL High <1.5 [facility] Comment on above: Performed By: #### C HM7, HFP, MGO #### [facility] (DEFAULT) [address] [place] [address] 12310 Bilirubin.indirect [Mass/Vol] 0.4 mg/dL High <0.3 [facility] Comment on above: Performed By: #### C HM7, HFP, MGO #### [facility] (DEFAULT) [address] [place] [address] 59804 Protein [Mass/Vol] 6.0 g/dL Low 6.4-8.3 [facility] Comment on above: Performed By: #### C HM7, HFP, MGO #### [facility] (DEFAULT) [address] [place] [address] 20889 MAGNESIUMon 01-18-2024 Magnesium [Mass/Vol] 1.5 mg/dL Low 1.6 - 2 .6 mg/dL [facility] Magnesium [Mass/Vol] 1.5 mg/dL Low 1.6-2.6 [facility] Comment on above: Performed By: #### C HM7, HFP, MGO #### [facility] (DEFAULT) [address] [place] [address] 31923 No Panel Informationon 01-18 Interpretation and review of laboratory results Abnormal [facility] PT,INR,PTTon 01-18-2024 aPTT Coag (PPP) [Time] 30.0 s [facility] INR Coag (Bld) [Relative time] 1.1 {INR} 0.9 - 1.[address] [facility] Interpretation and review of laboratory results Abnormal [facility] PT Coag (PPP) [Time] 14.5 s High [facility] aPTT Coag (Bld) [Time] 30.0 s Normal 24.0-34.3 [facility] Comment on above: Performed By: #### C A, CHM7, HFP, IPB, MGO #### [facility] (DEFAULT) [address] [place] [address] 26375 INR Coag (PPP) [Relative time] 1.1 {INR} Normal 0.9-1.1 [facility] Comment on above: Performed By: #### C A, CHM7, HFP, IPB, MGO #### [facility] (DEFAULT) [address] [place] [address] 90262 PT Coag (PPP) [Time] 14.5 s High 11.9-14.2 [facility] Comment on above: Performed By: #### C A, CHM7, HFP, IPB, MGO #### [facility] (DEFAULT) [address] [place] [address] 73329 TSH W/FT4 REFLEXon 4 Interpretation and review of laboratory results Normal [facility] TSH Qn 2.660 m[IU]/L [facility] TSH 2.660 uIU/mL Normal 0.550-4.780 [facility] Comment on above: Performed By: #### C HM7, HFP, MGO #### [facility] (DEFAULT) [address] [place] [address] 51336 AFP TUMOR MARKERon 02-18-202 4 AFP Tumor Marker <2.2 Normal <8.1 [facility] Comment on above: Result Comment: This test was performed on the [employer] Immunoassay platform by [employer] which is a two-site sandwich chemiluminescent immunoassay. It is important to note that assays using different manufacturers and/or methods may not be comparable. Performed By: #### C A, CHM7, HFP, IPB, MGO #### [facility] (DEFAULT) [address] [place] [address] DARYL AURIS SCREEN BY PCRO rdered By: Mynor Alejandro on 01-17-2024 Daryl auris Screen by PCR Not detected Not Detected [facility] Interpretation and review of laboratory results Normal [facility] This test was performed using a real-time PCR assay. This test was developed, and its performance characteristics determined by [facility]. It has not been cleared or approved by the FDA. The laboratory is regulated under CLIA as qualified to perform high-complexity testing. This test is used for clinical purposes. It should not be regarded as investigational or for research. [facility] CBC,PLATELETSon 01-17-2024 Erythrocyte distribution width (RBC) [Ratio] 14.0 % 10.9 - 14.3 % [facility] Hematocrit (Bld) [Volume fraction] 37.2 % Low 39.6 - 48.8 % [facility] Hemoglobin (Bld) [Mass/Vol] 12.0 g/dL Low 13.4 - 16.8 g/dL [facility] Interpretation and review of laboratory results Abnormal [facility] MCH (RBC) [Entitic mass] 27.9 pg 26.1 - 33.[address] [facility] MCHC (RBC) [Mass/Vol] 32.3 g/dL 31.9 - 36.5 g/dL [facility] MCV (RBC) [Entitic vol] 86.5 fL 79.0 - 94.[address] [facility] Platelet mean volume (Bld) [Entitic vol] 10.5 fL 8.7 - 12.[address] [facility] Platelets (Bld) [#/Vol] 159 10*3/uL 146 - 337 K/uL [facility] RBC (Bld) [#/Vol] 4.30 10*6/uL Low [facility] WBC (Bld) [#/Vol] 3.69 10*3/uL Low 3.73 - 10. 10 K/uL [facility] Hematocrit (Bld) [Volume fraction] 37.2 % Low 39.6-48.8 [facility] Comment on above: Performed By: #### Chinedu HM7, HFP, MGO #### [facility] (DEFAULT) [address] [address] Hemoglobin (Bld) [Mass/Vol] 12.0 g/dL Low 13.4-16.8 [facility] Comment on above: Performed By: #### Chinedu HM7, HFP, MGO #### [facility] (DEFAULT) [address] [place] [address] 49692 MCV (RBC) [Entitic vol] 86.5 fL Normal 79.0-94.5 [facility] Comment on above: Performed By: #### Chinedu HM7, HFP, MGO #### [facility] (DEFAULT) [address] [place] [address] 33933 Mean Cell Hgb 27.9 pg Normal 26.1-33.3 [facility] Comment on above: Performed By: #### Chinedu HM7, HFP, MGO #### [facility] (DEFAULT) [address] [place] [address] 76291 Mean Cell Hgb Conc 32.3 g/dL Normal 31.9-36.5 [facility] Comment on above: Performed By: #### Chinedu HM7, HFP, MGO #### [facility] (DEFAULT) [address] [place] [address] 54189 Platelet mean volume (Bld) [Entitic vol] 10.5 fL Normal 8.7-12.3 [facility] Comment on above: Performed By: #### C HM7, HFP, MGO #### [facility] (DEFAULT) [address] [place] [address] 20091 Platelets (Bld) [#/Vol] 159 10*3/uL Normal 146-337 [facility] Comment on above: Performed By: #### C HM7, HFP, MGO #### [facility] (DEFAULT) [address] [place] [address] 17070 RBC (Bld) [#/Vol] 4.30 10*6/uL Low 4.38-5.83 [facility] Comment on above: Performed By: #### C HM7, HFP, MGO #### [facility] (DEFAULT) [address] [place] [address] 81177 RBC Distribution 14.0 % Normal 10.9-14.3 [facility] Comment on above: Performed By: #### Chinedu HM7, HFP, MGO #### [facility] (DEFAULT) [address] [place] [address] 46212 WBC (Bld) [#/Vol] 3.69 10*3/uL Low 3.73-10.10 [facility] Comment on above: Performed By: #### Chinedu HM7, HFP, MGO #### [facility] (DEFAULT) [address] [place] [address] 67337 CHEM 7 (LYTES,BUN,CREA,GLUC) on 01-17-2024 Anion gap [Moles/Vol] 13 mmol/L 7 - 17 mmol/L [facility] Chloride [Moles/Vol] 109 mmol/L High 98 - 10 8 mmol/L [facility] CO2 [Moles/Vol] 21 mmol/L 21 - 31 mmol/L [facility] Creatinine [Mass/Vol] 1.04 mg/dL 0.70 - 1.30 mg/dL [facility] eGFR, CKD-EPI, Male 86 - PINF [facility] Comment on above: Reported eGFR is bas ed on the CKD-EPI 2021 equation using creatinine, age, and sex. Glucose [Mass/Vol] 82 mg/dL 70 - 99 mg/dL [facility] Osmolality Calc [Osmolality] [address] [facility] Potassium [Moles/Vol] 4.4 mmol/L 3.5 - 5.0 mmol/L [facility] Sodium [Moles/Vol] 139 mmol/L 135 - 145 mmol/L [facility] Urea nitrogen [Mass/Vol] 17 mg/dL 7 - 25 mg/dL [facility] Urea nitrogen/Creatinine [Mass ratio] 16 mg/mg [facility] Anion gap [Moles/Vol] 13 mmol/L Normal 7-17 [facility] Comment on above: Performed By: #### C HM7, HFP, MGO #### [facility] (DEFAULT) [address] [place] [address] 78833 Chloride [Moles/Vol] 109 mmol/L High 98-108 [facility] Comment on above: Performed By: #### Chinedu HM7, HFP, MGO #### [facility] (DEFAULT) [address] [place] [address] 99802 CO2 [Moles/Vol] 21 mmol/L Normal 21-31 [facility] Comment on above: Performed By: #### Chinedu HM7, HFP, MGO #### [facility] (DEFAULT) [address] [place] [address] 87509 Creatinine [Mass/Vol] 1.04 mg/dL Normal 0.70-1.30 [facility] Comment on above: Performed By: #### Chinedu HM7, HFP, MGO #### [facility] (DEFAULT) [address] [place] [address] 55669 GFR/1.73 sq M.predicted among non-blacks MDRD (S/P/Bld) [Vol rate/Area] 86 mL/min/{1.73_m2} Normal >=60 [facility] Comment on above: Result Comment: Repo rted eGFR is based on the CKD-EPI 2020 equation using creatinine, age, and sex. Performed By: #### C HM7, HFP, MGO #### [facility] (DEFAULT) [address] [place] [address] 16441 Glucose [Mass/Vol] 82 mg/dL Normal 70-99 [facility] Comment on above: Performed By: #### C HM7, HFP, MGO #### [facility] (DEFAULT) [address] [place] [address] 32921 Osmolality [Osmolality] 292 mosm/kg Normal 278-305 [facility] Comment on above: Performed By: #### C HM7, HFP, MGO #### [facility] (DEFAULT) [address] [place] [address] 89050 Potassium [Moles/Vol] 4.4 mmol/L Normal 3.5-5.0 [facility] Comment on above: Performed By: #### C HM7, HFP, MGO #### [facility] (DEFAULT) [address] [place] [address] 46023 Sodium [Moles/Vol] 139 mmol/L Normal 135-145 [facility] Comment on above: Performed By: #### C HM7, HFP, MGO #### [facility] (DEFAULT) [address] [place] [address] 66477 Urea nitrogen [Mass/Vol] 17 mg/dL Normal 7-25 [facility] Comment on above: Performed By: #### C HM7, HFP, MGO #### [facility] (DEFAULT) [address] [place] [address] 02929 Urea nitrogen/Creatinine [Mass ratio] 16 mg/mg Normal [facility] Comment on above: Performed By: #### C HM7, HFP, MGO #### [facility] (DEFAULT) [address] [place] [address] ABDOMEN/PELVIS WITHOUT CO NTRASTon 01-17-2024 CT [...] unremarkable. Kidneys: Severe atrophy of the bilateral [place] kidney is without hydronephrosis. Right lower quadrant [...] middle lobe. Trace left pleural effusion. Normal [facility] CT Abdomen and Pelvis [...] unremarkable. Kidneys: Severe atrophy of the bilateral [place] kidney is without hydronephrosis. Right lower quadrant [...] unremarkable. Kidneys: Severe atrophy of the bilateral [place] kidney is without hydronephrosis. Right lower quadrant [...] middle lobe. Trace left pleural effusion. [facility] Radiology Study observation (narrative) [facility] HEPATIC FUNCTION PANELon Albumin [Mass/Vol] 3.5 g/dL 3.5 - 5.0 g/dL [facility] ALP [Catalytic activity/Vol] 73 U/L 32 - 126 U/L [facility] ALT [Catalytic activity/Vol] 7 U/L Low 10 - 52 U/L [facility] AST [Catalytic activity/Vol] 25 U/L 10 - 39 U/L [facility] Bilirubin [Mass/Vol] 1.8 mg/dL High NINF - 1.5 mg/dL [facility] Bilirubin.direct [Mass/Vol] 0.3 mg/dL High NINF - 0.3 mg/dL [facility] Protein [Mass/Vol] 6.0 g/dL Low 6.4 - 8.3 g/dL [facility] Albumin [Mass/Vol] 3.5 g/dL Normal 3.5-5.0 [facility] Comment on above: Performed By: #### C HM7, HFP, MGO #### [facility] (DEFAULT) [address] [place] [address] 53199 ALP [Catalytic activity/Vol] 73 U/L Normal 32-126 [facility] Comment on above: Performed By: #### C HM7, HFP, MGO #### [facility] (DEFAULT) [address] [place] [address] ALT [Catalytic activity/Vol] 7 U/L Low 10-52 [facility] Comment on above: Performed By: #### C HM7, HFP, MGO #### [facility] (DEFAULT) [address] [place] [address] 50919 AST [Catalytic activity/Vol] 25 U/L Normal 10-39 [facility] Comment on above: Performed By: #### C HM7, HFP, MGO #### [facility] (DEFAULT) [address] [place] [address] Bilirubin [Mass/Vol] 1.8 mg/dL High <1.5 [facility] Comment on above: Performed By: #### C HM7, HFP, MGO #### [facility] (DEFAULT) [address] [place] [address] 55851 Bilirubin.indirect [Mass/Vol] 0.3 mg/dL High <0.3 [facility] Comment on above: Performed By: #### C HM7, HFP, MGO #### [facility] (DEFAULT) [address] [place] [address] Protein [Mass/Vol] 6.0 g/dL Low 6.4-8.3 [facility] Comment on above: Performed By: #### C TAVO MEDLEY, MGO #### [facility] (DEFAULT) [address] [address] HISTOPLASMA AND BLASTOMYCES ANTIGEN, ENZYME IMMUNOASSAY, SERMon 01-17-2024 Histoplasma/Blastomyce s Ag Result Not detected Normal Not Detected [facility] Comment on above: Result Comment: No a ntigen from Histoplasma or Blastomyces detected. False negative results may occur depending on extent of disease, and/or site of infection. Repeat testing on a new specimen if clinically indicated. Performed By: #### NATHANIEL Willis HFP, IPB, DOMENICA #### [facility] (DEFAULT) [address] [address] Histoplasma/Blastomyce s Ag Value Not detected Normal [facility] Comment on above: Result Comment: ADDITIONAL INFORMATION This test was developed and its performance characteristics determined by [facility] in a manner consistent with CLIA requirements. This test has not been cleared or approved by the U.S. Food and Drug Administration. Test Performed by: [place] [address] Web Site Specialist: Rosendo Bose M.D. Ph.D.; CLIA# [id number] Performed By: #### C NATHANIEL Feliz HFP, JO ANN, MGO #### [facility] (DEFAULT) [address] [address] MAGNESIUMon 01-17-2024 Interpretation and review of laboratory results Normal [facility] Magnesium [Mass/Vol] 1.7 mg/dL 1.6 - 2 .6 mg/dL [facility] Magnesium [Mass/Vol] 1.7 mg/dL Normal 1.6-2.6 [facility] Comment on above: Performed By: #### C JASMYNE, TAVO, MGO #### [facility] (DEFAULT) [address] [place] [address] 37998 No Panel Informationon 01-17 Interpretation and review of laboratory results Abnormal [facility] PT,INR,PTTon 01-17-2024 aPTT Coag (PPP) [Time] 29.9 s OS [facility] INR Coag (Bld) [Relative time] 1.1 {INR} 0.9 - 1.[address] [facility] Interpretation and review of laboratory results Abnormal [facility] PT Coag (PPP) [Time] 14.5 s High [facility] aPTT Coag (Bld) [Time] 29.9 s Normal 24.0-34.3 [facility] Comment on above: Performed By: #### C HMJessica, HFP, MGO #### [facility] (DEFAULT) [address] [place] [address] 49691 INR Coag (PPP) [Relative time] 1.1 {INR} Normal 0.9-1.1 [facility] Comment on above: Performed By: #### Chinedu HMJessica, HFP, MGO #### [facility] (DEFAULT) [address] [place] [address] 40300 PT Coag (PPP) [Time] 14.5 s High 11.9-14.2 [facility] Comment on above: Performed By: #### C HM7, HFP, MGO #### [facility] (DEFAULT) [address] [place] [address] 20393 B-TYPE NATRIURETIC PEPTIDE ( BRAIN)on 01-16-2024 Interpretation and review of laboratory results Abnormal [facility] Natriuretic peptide B (Bld) [Mass/Vol] 212 pg/mL High 0 - 100 pg/mL [facility] Natriuretic peptide B (Bld) [Mass/Vol] 212 pg/mL High 0-100 [facility] Comment on above: Performed By: #### C HM7, HFP, MGO #### [facility] (DEFAULT) [address] [place] [address] 48148 CALCIUMon 01-16-2024 Calcium [Mass/Vol] 8.5 mg/dL Low 8.6 - 10. 5 mg/dL [facility] Calcium [Mass/Vol] 8.5 mg/dL Low 8.6-10.5 [facility] Comment on above: Performed By: #### C A, CHM7, HFP, IPB, MGO #### [facility] (DEFAULT) [address] [place] [address] 0[address]16 DARYL AURIS SCREEN BY PCRo n 01-16-2024 Daryl auris Screen by PCR Not detected Normal Not Detected [facility] Comment on above: Order Comment: This test was performed using a real-time PCR assay. This test was developed, and its performance characteristics determined by [facility]. It has not been cleared or approved by the FDA. The laboratory is regulated under CLIA as qualified to perform high-complexity testing. This test is used for clinical purposes. It should not be regarded as investigational or for research. Performed By: #### C HM7, HFP, MGO #### [facility] (DEFAULT) [address] [place] [address] 9[address]83 CBC AND ELECTRONIC DIFFon Basophils (Bld) [#/Vol] K/uL 0.00 - 0.09 K/uL [facility] Basophils/100 WBC (Bld) 0.6 % [facility] Differential cell count method Nom (Bld) Electronic Differential [facility] Eosinophils (Bld) [#/Vol] 0.09 10*3/uL 0.00 - 0.48 K/uL [facility] Eosinophils/100 WBC (Bld) 2.5 % [facility] Erythrocyte distribution width (RBC) [Ratio] 14.0 % 10.9 - 14.3 % [facility] Hematocrit (Bld) [Volume fraction] 37.4 % Low 39.6 - 48.8 % [facility] Hemoglobin (Bld) [Mass/Vol] 12.1 g/dL Low 13.4 - 16.8 g/dL [facility] Immature granulocytes (Bld) [#/Vol] K/uL NINF - 0.07 K/uL [facility] Immature granulocytes/100 WBC (Bld) 0.3 % [facility] Interpretation and review of laboratory results Abnormal [facility] Lymphocytes (Bld) [#/Vol] 1.16 10*3/uL 0.83 - 3.57 K/uL [facility] Lymphocytes/100 WBC (Bld) 32.0 % [facility] MCH (RBC) [Entitic mass] 28.4 pg 26.1 - 33.[address] [facility] MCHC (RBC) [Mass/Vol] 32.4 g/dL 31.9 - 36.5 g/dL [facility] MCV (RBC) [Entitic vol] 87.8 fL 79.0 - 94.[address] [facility] Monocytes (Bld) [#/Vol] 0.43 10*3/uL 0.24 - 0.93 K/uL [facility] Monocytes/100 WBC (Bld) 11.9 % [facility] Neutrophils (Bld) [#/Vol] 1.91 10*3/uL 1.57 - 6.19 K/uL [facility] Nucleated RBC/100 WBC (Bld) [Ratio] 0.0 % [facility] Platelet mean volume (Bld) [Entitic vol] 10.1 fL 8.7 - 12.[address] [facility] Platelets (Bld) [#/Vol] 155 10*3/uL 146 - 337 K/uL [facility] RBC (Bld) [#/Vol] 4.26 10*6/uL Low [facility] Segmented neutrophils/100 WBC (Bld) 52.7 % [facility] WBC (Bld) [#/Vol] 3.62 10*3/uL Low 3.73 - 10. 10 K/uL [facility] Abs Baso Auto < Normal 0.00-0.09 [facility] Comment on above: Performed By: #### C HM7, HFP, MGO #### [facility] (DEFAULT) [address] [place] [address] 41801 Basophils/100 WBC (Bld) 0.6 % Normal [facility] Comment on above: Performed By: #### C HM7, HFP, MGO #### [facility] (DEFAULT) [address] [place] [address] 38970 DIFF STATUS Electronic Differential Normal [facility] Comment on above: Performed By: #### C HM7, HFP, MGO #### [facility] (DEFAULT) [address] [place] [address] 20316 Eosinophils (Bld) [#/Vol] 0.09 10*3/uL Normal 0.00-0.48 [facility] Comment on above: Performed By: #### C HM7, HFP, MGO #### [facility] (DEFAULT) [address] [place] [address] 16866 Eosinophils/100 WBC (Bld) 2.5 % Normal [facility] Comment on above: Performed By: #### C HM7, HFP, MGO #### [facility] (DEFAULT) [address] [place] [address] 8[address] Hematocrit (Bld) [Volume fraction] 37.4 % Low 39.6-48.8 [facility] Comment on above: Performed By: #### C HM7, HFP, MGO #### [facility] (DEFAULT) [address] [place] [address] 08543 Hemoglobin (Bld) [Mass/Vol] 12.1 g/dL Low 13.4-16.8 [facility] Comment on above: Performed By: #### C HM7, HFP, MGO #### [facility] (DEFAULT) [address] [place] [address] 46453 Immature Grans % 0.3 % Normal [facility] Comment on above: Performed By: #### C HM7, HFP, MGO #### [facility] (DEFAULT) [address] [place] [address] 59196 Immature Grans Absolute < Normal <=0.07 [facility] Comment on above: Performed By: #### Chinedu HM7, HFP, MGO #### [facility] (DEFAULT) [address] [place] [address] 56739 Lymphocytes (Bld) [#/Vol] 1.16 10*3/uL Normal 0.83-3.57 [facility] Comment on above: Performed By: #### C HM7, HFP, MGO #### [facility] (DEFAULT) [address] [place] [address] 11957 Lymphocytes/100 WBC (Bld) 32.0 % Normal [facility] Comment on above: Performed By: #### Chinedu HM7, HFP, MGO #### [facility] (DEFAULT) [address] [place] [address] 79203 MCV (RBC) [Entitic vol] 87.8 fL Normal 79.0-94.5 [facility] Comment on above: Performed By: #### Chinedu HMJessica, HFP, MGO #### [facility] (DEFAULT) [address] [place] [address] 92146 Mean Cell Hgb 28.4 pg Normal 26.1-33.3 [facility] Comment on above: Performed By: #### Chinedu HM7, HFP, MGO #### [facility] (DEFAULT) [address] [place] [address] 95032 Mean Cell Hgb Conc 32.4 g/dL Normal 31.9-36.5 [facility] Comment on above: Performed By: #### Chinedu HM7, HFP, MGO #### [facility] (DEFAULT) [address] [place] [address] 34410 Monocytes (Bld) [#/Vol] 0.43 10*3/uL Normal 0.24-0.93 [facility] Comment on above: Performed By: #### Chinedu HM7, HFP, MGO #### [facility] (DEFAULT) [address] [place] [address] 91046 Monocytes/100 WBC (Bld) 11.9 % Normal [facility] Comment on above: Performed By: #### C HM7, HFP, MGO #### [facility] (DEFAULT) [address] [place] [address] 70593 Nucleated RBC 0.0 /100 WBC Normal <=0.2 [facility] Comment on above: Performed By: #### C HM7, HFP, MGO #### [facility] (DEFAULT) [address] [place] [address] 90010 Platelet mean volume (Bld) [Entitic vol] 10.1 fL Normal 8.7-12.3 [facility] Comment on above: Performed By: #### C HM7, HFP, MGO #### [facility] (DEFAULT) [address] [place] [address] 66986 Platelets (Bld) [#/Vol] 155 10*3/uL Normal 146-337 [facility] Comment on above: Performed By: #### C HM7, HFP, MGO #### [facility] (DEFAULT) [address] [place] [address] 77783 RBC (Bld) [#/Vol] 4.26 10*6/uL Low 4.38-5.83 [facility] Comment on above: Performed By: #### C HM7, HFP, MGO #### [facility] (DEFAULT) [address] [place] [address] 30973 RBC Distribution 14.0 % Normal 10.9-14.3 [facility] Comment on above: Performed By: #### C HM7, HFP, MGO #### [facility] (DEFAULT) [address] [place] [address] 44532 Segs + Bands Auto 52.7 % Normal [facility] Comment on above: Performed By: #### C HM7, HFP, MGO #### [facility] (DEFAULT) [address] [place] [address] Segs + Bands,Absolute Auto 1.91 K/uL Normal 1.57-6.19 [facility] Comment on above: Performed By: #### C HM7, HFP, MGO #### [facility] (DEFAULT) [address] [place] [address] WBC (Bld) [#/Vol] 3.62 10*3/uL Low 3.73-10.10 [facility] Comment on above: Performed By: #### C HM7, HFP, MGO #### [facility] (DEFAULT) [address] [place] [address] CHEM 7 (LYTES,BUN,CREA,GLUC) on 01-16-2024 Anion gap [Moles/Vol] 11 mmol/L 7 - 17 mmol/L [facility] Chloride [Moles/Vol] 108 mmol/L 98 - 10 8 mmol/L [facility] CO2 [Moles/Vol] 24 mmol/L 21 - 31 mmol/L [facility] Creatinine [Mass/Vol] 1.04 mg/dL 0.70 - 1.30 mg/dL [facility] eGFR, CKD-EPI, Male 86 - PINF [facility] Comment on above: Reported eGFR is bas ed on the CKD-EPI 2020 equation using creatinine, age, and sex. Glucose [Mass/Vol] 95 mg/dL 70 - 99 mg/dL [facility] Osmolality Calc [Osmolality] [address] [facility] Potassium [Moles/Vol] 4.0 mmol/L 3.5 - 5.0 mmol/L [facility] Sodium [Moles/Vol] 139 mmol/L 135 - 145 mmol/L [facility] Urea nitrogen [Mass/Vol] 19 mg/dL 7 - 25 mg/dL [facility] Urea nitrogen/Creatinine [Mass ratio] 18 mg/mg [facility] Anion gap [Moles/Vol] 11 mmol/L Normal 7-17 [facility] Comment on above: Performed By: #### C A, CHM7, HFP, IPB, MGO #### [facility] (DEFAULT) [address] [place] [address] 03311 Chloride [Moles/Vol] 108 mmol/L Normal 98-108 [facility] Comment on above: Performed By: #### C A, CHM7, HFP, IPB, MGO #### [facility] (DEFAULT) [address] [place] [address] 06315 CO2 [Moles/Vol] 24 mmol/L Normal 21-31 [facility] Comment on above: Performed By: #### C A, CHM7, HFP, IPB, MGO #### [facility] (DEFAULT) [address] [place] [address] 78620 Creatinine [Mass/Vol] 1.04 mg/dL Normal 0.70-1.30 [facility] Comment on above: Performed By: #### C A, CHM7, HFP, IPB, MGO #### [facility] (DEFAULT) [address] [place] [address] 00695 GFR/1.73 sq M.predicted among non-blacks MDRD (S/P/Bld) [Vol rate/Area] 86 mL/min/{1.73_m2} Normal >=60 [facility] Comment on above: Result Comment: Repo rted eGFR is based on the CKD-EPI 2020 equation using creatinine, age, and sex. Performed By: #### C A, CHM7, HFP, IPB, MGO #### [facility] (DEFAULT) [address] [place] [address] 91868 Glucose [Mass/Vol] 95 mg/dL Normal 70-99 [facility] Comment on above: Performed By: #### C A, CHM7, HFP, IPB, MGO #### [facility] (DEFAULT) [address] [place] [address] 06463 Osmolality [Osmolality] 293 mosm/kg Normal 278-305 [facility] Comment on above: Performed By: #### C A, CHM7, HFP, IPB, MGO #### [facility] (DEFAULT) [address] [place] [address] 33734 Potassium [Moles/Vol] 4.0 mmol/L Normal 3.5-5.0 [facility] Comment on above: Performed By: #### C A, CHM7, HFP, IPB, MGO #### [facility] (DEFAULT) [address] [place] [address] 85977 Sodium [Moles/Vol] 139 mmol/L Normal 135-145 [facility] Comment on above: Performed By: #### C A, CHM7, HFP, IPB, MGO #### [facility] (DEFAULT) [address] [place] [address] 12271 Urea nitrogen [Mass/Vol] 19 mg/dL Normal 7-25 [facility] Comment on above: Performed By: #### C A, CHM7, HFP, IPB, MGO #### [facility] (DEFAULT) [address] [place] [address] 11894 Urea nitrogen/Creatinine [Mass ratio] 18 mg/mg Normal [facility] Comment on above: Performed By: #### C A, CHM7, HFP, IPB, MGO #### [facility] (DEFAULT) [address] [place] [address] 34487 D-DIMER,QUANTITATIVEOrdered By: Shaji Kelly on 01-16-2024 Fibrin D-dimer FEU (PPP) [Mass/Vol] 0.67 High [facility] Comment on above: The D-Dimer assay is intended for use in conjuction with a clinical pretest probability (PTP) assessment model to exclude pulmonary embolism (PE) and as an aid in the diagnosis of Deep Vein Thrombosis (DVT) in outpatients suspected of PE or DVT. For the assay in use at [facility] ([facility]), a cutoff of <0.50 mcg/mL has a Negative Predictive Value of 99.7% for exclusion of DVT in low and moderate PTP patients. Interpretation and review of laboratory results Abnormal [facility] D-DIMER,QUANTITATIVEon 01-16 D-Dimer, High Sensitivity 0.67 mcg/mL FEU High <0.50 [facility] Comment on above: Result Comment: The D-Dimer assay is intended for use in conjuction with a clinical pretest probability (PTP) assessment model to exclude pulmonary embolism (PE) and as an aid in the diagnosis of Deep Vein Thrombosis (DVT) in outpatients suspected of PE or DVT. For the assay in use at [facility] ([facility]), a cutoff of <0.50 mcg/mL has a Negative Predictive Value of 99.7% for exclusion of DVT in low and moderate PTP patients. Performed By: #### C HM7, HFP, MGO #### [facility] (DEFAULT) [address] [place] [address] HEPATIC FUNCTION PANELon Albumin [Mass/Vol] 3.7 g/dL 3.5 - 5.0 g/dL [facility] ALP [Catalytic activity/Vol] 70 U/L 32 - 126 U/L [facility] ALT [Catalytic activity/Vol] 8 U/L Low 10 - 52 U/L [facility] AST [Catalytic activity/Vol] 21 U/L 10 - 39 U/L [facility] Bilirubin [Mass/Vol] 1.9 mg/dL High NINF - 1.5 mg/dL [facility] Bilirubin.direct [Mass/Vol] 0.4 mg/dL High NINF - 0.3 mg/dL [facility] Protein [Mass/Vol] 6.1 g/dL Low 6.4 - 8.3 g/dL [facility] Albumin [Mass/Vol] 3.7 g/dL Normal 3.5-5.0 [facility] Comment on above: Performed By: #### C A, CHM7, HFP, IPB, MGO #### [facility] (DEFAULT) [address] [address] ALP [Catalytic activity/Vol] 70 U/L Normal 32-126 [facility] Comment on above: Performed By: #### C A, CHM7, HFP, IPB, MGO #### [facility] (DEFAULT) [address] [place] [address] 71908 ALT [Catalytic activity/Vol] 8 U/L Low 10-52 [facility] Comment on above: Performed By: #### C A, CHM7, HFP, IPB, MGO #### [facility] (DEFAULT) [address] [place] [address] 55184 AST [Catalytic activity/Vol] 21 U/L Normal 10-39 [facility] Comment on above: Performed By: #### C A, CHM7, HFP, IPB, MGO #### [facility] (DEFAULT) [address] [place] [address] 08346 Bilirubin [Mass/Vol] 1.9 mg/dL High <1.5 [facility] Comment on above: Performed By: #### C A, CHM7, HFP, IPB, MGO #### [facility] (DEFAULT) [address] [place] [address] 63587 Bilirubin.indirect [Mass/Vol] 0.4 mg/dL High <0.3 [facility] Comment on above: Performed By: #### C A, CHM7, HFP, IPB, MGO #### [facility] (DEFAULT) [address] [place] [address] 93141 Protein [Mass/Vol] 6.1 g/dL Low 6.4-8.3 [facility] Comment on above: Performed By: #### C A, CHM7, HFP, IPB, MGO #### [facility] (DEFAULT) [address] [place] [address] 94297 MAGNESIUMon 01-16-2024 Magnesium [Mass/Vol] 1.7 mg/dL 1.6 - 2 .6 mg/dL [facility] Magnesium [Mass/Vol] 1.7 mg/dL Normal 1.6-2.6 [facility] Comment on above: Performed By: #### Chinedu Feliz, HELENM7, HFP, IPB, MGO #### [facility] (DEFAULT) [address] [place] [address] 18160 No Panel Informationon 01-16 Interpretation and review of laboratory results Abnormal [facility] Interpretation and review of laboratory results Normal [facility] PHOSPHATE, INORGANICon 01-16 Phosphate [Mass/Vol] 4.1 mg/dL 2.2 - 4 .6 mg/dL [facility] Phosphorous 4.1 mg/dL Normal 2.2-4.6 [facility] Comment on above: Performed By: #### Chinedu Feliz, CHM7, HFP, IPB, MGO #### [facility] (DEFAULT) [address] [place] [address] 39113 PT,INR,PTTon 01-16-2024 aPTT Coag (PPP) [Time] 29.6 s [facility] INR Coag (Bld) [Relative time] 1.2 {INR} High 0.9 - 1.[address] [facility] Interpretation and review of laboratory results Abnormal [facility] PT Coag (PPP) [Time] 14.9 s High [facility] aPTT Coag (Bld) [Time] 29.6 s Normal 24.0-34.3 [facility] Comment on above: Performed By: #### Chinedu HMJessica, TAVO, MGO #### [facility] (DEFAULT) [address] [place] [address] 95670 INR Coag (PPP) [Relative time] 1.2 {INR} High 0.9-1.1 [facility] Comment on above: Performed By: #### Chinedu HM7, HFP, MGO #### [facility] (DEFAULT) [address] [place] [address] 68840 PT Coag (PPP) [Time] 14.9 s High 11.9-14.2 [facility] Comment on above: Performed By: #### C HM7, HFP, MGO #### [facility] (DEFAULT) [address] [place] [address] 05582 TACROLIMUS LEVEL, TROUGH (MI E DRUG LEVEL)Ordered By: Jimy Castillo on 01-16-2024 Interpretation and review of laboratory results Normal [facility] Tacrolimus (Bld) [Mass/Vol] 5.7 ng/mL Bone Marrow Transplant: 4.0-12.0, Therapeutic: 5.0-15.[address] [facility] Method performed is a chemiluminescent microparticle immunoasssay on the [employer] i2000. The range is based on experience at [facility] and users should be aware that target concentrations vary widely depending on concomitant therapy, time post-transplant, and desired degree of immunosuppression. [facility] TACROLIMUS LEVEL, TROUGH (MI E DRUG LEVEL)on 01-16-2024 Tacrolimus, Trough 5.7 ng/mL Normal Bone Susana ow Transplant: 4.0-12.0, Therapeutic: 5.0-15.0 [facility] Comment on above: Order Comment: Pleas e draw at specified interval PRIOR to dose. Do not hold dose to wait for level. Specimens batched twice per day, (M-F) and once per day weekendsMethod performed is a chemiluminescent microparticle immunoasssay on the [employer] i2000.The range is based on experience at [facility] and users should be aware that target concentrations vary widely depending on concomitant therapy, time post-transplant, and desired degree of immunosuppression. Performed By: #### C A, CHM7, HFP, IPB, MGO #### [facility] [address] [place] [address] 94292 US ABDOMEN LIVER DOPPLERon 0 01-16-2024 US [...] effusion. Trace right upper quadrant ascites. Normal [facility] US.doppler Abdominal vessels on 01-16-2024 [...] pleural effusion. Trace right upper quadrant ascites. [facility] Radiology Study observation (narrative) [facility] US.doppler Abdominal vessels Ordered By: Iona Duran on 01-16-2024 [facility] Work Phone: XR CHEST PA [...] Normal IMPRESSION: Moderate right pleural effusion. Normal [facility] XR Chest PA and Lateralon [...] Normal IMPRESSION IMPRESSION: Moderate right pleural effusion. [facility] Radiology Study observation (narrative) [facility] XR Chest PA and LateralOrder ed By: Daisha Patterson on 01-16-[address] [facility] Work Phone: ALL CBC WITH AUTO DIFFon BASOPHILS ABSOLUTE AUTO 0.0 [facility] Basophils/100 WBC (Bld) 0.5 % 0.2 - 2.0 % [facility] Eosin[facility]/100 WBC (Bld) 2.8 % 0.9 - 7.0 % [facility] Erythrocyte distribution width (RBC) [Ratio] 13.8 % 11.0 - 15.0 % [facility] Hematocrit (Bld) [Volume fraction] 43.7 % 42.0 - 54.0 % [facility] [facility] Hemoglobin (Bld) [Mass/Vol] 14.0 g/dL 14.0 - 18.0 g/dL [facility] IMMATURE GRANULOCYTES ABS AUTO 0.01 [facility] Immature granulocytes/100 WBC (Bld) 0.3 % 0.0 - 0.5 % [facility] LYMPHOCYTES ABSOLUTE AUTO 1.5 [facility] Lymphocytes/100 WBC (Bld) 37.5 % 20.5 - 60.0 % [facility] MCH (RBC) [Entitic mass] 28.4 pg 25.9 - 34.0 pg [facility] MCHC (RBC) [Mass/Vol] 32.0 g/dL 29.9 - 35.2 g/dL [facility] MCV (RBC) [Entitic vol] 88.6 fL 80.0 - 94.0 fL [facility] MONOCYTES ABSOLUTE AUTO 0.5 [facility] Monocytes/100 WBC (Bld) 11.9 % 1.7 - 12.0 % [facility] NEUTROPHILS ABSOLUTE AUTO 1.9 [facility] Neutrophils/100 WBC (Bld) 47.0 % 43.0 - 75.0 % [facility] Platelet mean volume (Bld) [Entitic vol] 10.3 fL 9.5 - 13.5 fL [facility] TBH EO # 0.1 [facility] TBH PLT 180 [facility] TBH RBC 4.93 [facility] TBH WBC 4.0 [facility] ALL CBC WITH AUTO DIFFon BASOPHILS ABSOLUTE AUTO 0.0 [facility] Basophils/100 WBC (Bld) 0.5 % 0.2 - 2.0 % [facility] Eosinophils/100 WBC (Bld) 2.6 % 0.9 - 7.0 % [facility] Erythrocyte distribution width (RBC) [Ratio] 13.5 % 11.0 - 15.0 % [facility] Hematocrit (Bld) [Volume fraction] 43.8 % 42.0 - 54.0 % [facility] Hemoglobin (Bld) [Mass/Vol] 14.0 g/dL 14.0 - 18.0 g/dL [facility] IMMATURE GRANULOCYTES ABS AUTO 0.00 [facility] Immature granulocytes/100 WBC (Bld) 0.0 % 0.0 - 0.5 % [facility] Interpretation and review of laboratory results Abnormal [facility] LYMPHOCYTES ABSOLUTE AUTO 1.8 [facility] Lymphocytes/100 WBC (Bld) 45.2 % 20.5 - 60.0 % [facility] MCH (RBC) [Entitic mass] 27.9 pg 25.9 - 34.0 pg [facility] MCHC (RBC) [Mass/Vol] 32.0 g/dL 29.9 - 35.2 g/dL [facility] MCV (RBC) [Entitic vol] 87.4 fL 80.0 - 94.0 fL [facility] MONOCYTES ABSOLUTE AUTO 0.4 [facility] Monocytes/100 WBC (Bld) 9.6 % 1.7 - 12.0 % [facility] NEUTROPHILS ABSOLUTE AUTO 1.6 [facility] Neutrophils/100 WBC (Bld) 42.1 % Low 43.0 - 75.0 % [facility] Platelet mean volume (Bld) [Entitic vol] 9.8 fL 9.5 - 13.5 fL [facility] TB EO # 0.1 [facility] TB PLT 180 [facility] RBC 5.01 [facility] TB WBC 3.9 Low [facility] CHEM 7 (LYTES,BUN,CREA,GLUC) on 09-11-2023 Anion gap [Moles/Vol] 13 mmol/L 7 - 17 mmol/L [facility] Chloride [Moles/Vol] 111 mmol/L High 98 - 10 8 mmol/L [facility] CO2 [Moles/Vol] 20 mmol/L Low 21 - 31 mmol/L [facility] Creatinine [Mass/Vol] 1.13 mg/dL 0.70 - 1.30 mg/dL [facility] eGFR, CKD-EPI, Male 78 - PINF [facility] Glucose [Mass/Vol] 109 mg/dL High 70 - 99 mg/dL [facility] Interpretation and review of laboratory results Abnormal [facility] Osmolality Calc [Osmolality] [address] [facility] Potassium [Moles/Vol] 4.3 mmol/L 3.5 - 5.0 mmol/L [facility] Sodium [Moles/Vol] 140 mmol/L 135 - 145 mmol/L [facility] Urea nitrogen [Mass/Vol] 16 mg/dL 7 - 25 mg/dL [facility] Urea nitrogen/Creatinine [Mass ratio] 14 mg/mg [facility] Anion gap [Moles/Vol] 13 mmol/L Normal 7-17 [facility] Comment on above: Performed By: #### C A, CHM7, HFP, IPB, MGO #### [facility] (DEFAULT) [address] [place] [address] 72568 Chloride [Moles/Vol] 111 mmol/L High 98-108 [facility] Comment on above: Performed By: #### C A, CHM7, HFP, IPB, MGO #### [facility] (DEFAULT) [address] [place] [address] CO2 [Moles/Vol] 20 mmol/L Low 21-31 [facility] Comment on above: Performed By: #### C A, CHM7, HFP, IPB, MGO #### [facility] (DEFAULT) [address] [place] [address] Creatinine [Mass/Vol] 1.13 mg/dL Normal 0.70-1.30 [facility] Comment on above: Performed By: #### C A, CHM7, HFP, IPB, MGO #### [facility] (DEFAULT) [address] [place] [address] 06857 GFR/1.73 sq M.predicted among non-blacks MDRD (S/P/Bld) [Vol rate/Area] 78 mL/min/{1.73_m2} Normal >=60 [facility] Comment on above: Result Comment: Repo rted eGFR is based on the CKD-EPI 2020 equation using creatinine, age, and sex. Performed By: #### C A, CHM7, HFP, IPB, MGO #### [facility] (DEFAULT) [address] [place] [address] 82883 Glucose [Mass/Vol] 109 mg/dL High 70-99 [facility] Comment on above: Performed By: #### C A, CHM7, HFP, IPB, MGO #### [facility] (DEFAULT) [address] [place] [address] 01383 Osmolality [Osmolality] 295 mosm/kg Normal 278-305 [facility] Comment on above: Performed By: #### C A, CHM7, HFP, IPB, MGO #### [facility] (DEFAULT) [address] [place] [address] 71052 Potassium [Moles/Vol] 4.3 mmol/L Normal 3.5-5.0 [facility] Comment on above: Performed By: #### C A, CHM7, HFP, IPB, MGO #### [facility] (DEFAULT) [address] [place] [address] 55949 Sodium [Moles/Vol] 140 mmol/L Normal 135-145 [facility] Comment on above: Performed By: #### C A, CHM7, HFP, IPB, MGO #### [facility] (DEFAULT) [address] [place] [address] 88458 Urea nitrogen [Mass/Vol] 16 mg/dL Normal 7-25 [facility] Comment on above: Performed By: #### C A, CHM7, HFP, IPB, MGO #### [facility] (DEFAULT) [address] [place] [address] Urea nitrogen/Creatinine [Mass ratio] 14 mg/mg Normal [facility] Comment on above: Performed By: #### C Tray, CHM7, HFP, IPB, MGO #### [facility] (DEFAULT) [address] [place] [address] GLUCOSE POCon 09-11-2023 Glucose [Mass/Vol] 108 mg/dL High 70 - 99 mg/dL [facility] Interpretation and review of laboratory results Abnormal [facility] POC Sample Type CAPBL [facility] Legionella sp identified Org specific cx Nom (Unsp spec)on 09-11-2023 Bacteria identified Cx Nom (Unsp spec) NO GROWTH DAY 7 OF 7 [facility] MAGNESIUMon 09-11-2023 Interpretation and review of laboratory results Normal [facility] Magnesium [Mass/Vol] 1.6 mg/dL 1.6 - 2 .6 mg/dL [facility] Magnesium [Mass/Vol] 1.6 mg/dL Normal 1.6-2.6 [facility] Comment on above: Performed By: #### C Tray, HELENMJessica, HFP, IPB, MGO #### [facility] (DEFAULT) [address] [place] [address] 22271 No Panel Informationon 09-[address] [facility] TACROLIMUS LEVEL, TROUGH (MI E DRUG LEVEL)on 09-11-2023 Interpretation and review of laboratory results Normal [facility] Tacrolimus (Bld) [Mass/Vol] 11.5 ng/mL [facility] Tacrolimus, Trough 11.5 ng/mL Normal Bone Susana ow Transplant: 4.0-12.0, Therapeutic: 5.0-15.0 [facility] Comment on above: Order Comment: Pleas e draw at specified interval PRIOR to dose. Do not hold dose to wait for level. Specimens batched twice per day, (M-F) and once per day weekendsMethod performed is a chemiluminescent microparticle immunoasssay on the [employer] i2000.The range is based on experience at [facility] and users should be aware that target concentrations vary widely depending on concomitant therapy, time post-transplant, and desired degree of immunosuppression. Performed By: #### C NATHANIEL Feliz, TAVO, IPB, MGO #### [facility] (DEFAULT) [address] [place] [address] CBC,PLATELETSon 09-10-2023 Erythrocyte distribution width (RBC) [Ratio] 13.9 % 10.9 - 14.3 % [facility] Hematocrit (Bld) [Volume fraction] 40.0 % 39.6 - 48.8 % [facility] Hemoglobin (Bld) [Mass/Vol] 12.7 g/dL Low 13.4 - 16.8 g/dL [facility] Interpretation and review of laboratory results Abnormal [facility] MCH (RBC) [Entitic mass] 27.3 pg 26.1 - 33.[address] [facility] MCHC (RBC) [Mass/Vol] 31.8 g/dL Low 31.9 - 36.5 g/dL [facility] MCV (RBC) [Entitic vol] 86.0 fL 79.0 - 94.[address] [facility] Platelet mean volume (Bld) [Entitic vol] 9.5 fL 8.7 - 12.[address] [facility] Platelets (Bld) [#/Vol] 225 10*3/uL 146 - 337 K/uL [facility] RBC (Bld) [#/Vol] 4.65 10*6/uL [facility] WBC (Bld) [#/Vol] 6.52 10*3/uL 3.73 - 10. 10 K/uL [facility] Hematocrit (Bld) [Volume fraction] 40.0 % Normal 39.6-48.8 [facility] Comment on above: Performed By: #### C HELEN FelizM7, HFP, IPB, MGO #### [facility] (DEFAULT) [address] [place] [address] 99533 Hemoglobin (Bld) [Mass/Vol] 12.7 g/dL Low 13.4-16.8 [facility] Comment on above: Performed By: #### C A, CHM7, HFP, IPB, MGO #### [facility] (DEFAULT) [address] [place] [address] 54969 MCV (RBC) [Entitic vol] 86.0 fL Normal 79.0-94.5 [facility] Comment on above: Performed By: #### C A, CHM7, HFP, IPB, MGO #### [facility] (DEFAULT) [address] [place] [address] 12635 Mean Cell Hgb 27.3 pg Normal 26.1-33.3 [facility] Comment on above: Performed By: #### C A, CHM7, HFP, IPB, MGO #### [facility] (DEFAULT) [address] [place] [address] 24897 Mean Cell Hgb Conc 31.8 g/dL Low 31.9-36.5 [facility] Comment on above: Performed By: #### C A, CHM7, HFP, IPB, MGO #### [facility] (DEFAULT) [address] [place] [address] 60677 Platelet mean volume (Bld) [Entitic vol] 9.5 fL Normal 8.7-12.3 [facility] Comment on above: Performed By: #### C A, CHM7, HFP, IPB, MGO #### [facility] (DEFAULT) [address] [place] [address] 90249 Platelets (Bld) [#/Vol] 225 10*3/uL Normal 146-337 [facility] Comment on above: Performed By: #### C A, CHM7, HFP, IPB, MGO #### [facility] (DEFAULT) [address] [place] [address] 88197 RBC (Bld) [#/Vol] 4.65 10*6/uL Normal 4.38-5.83 [facility] Comment on above: Performed By: #### C A, CHM7, HFP, IPB, MGO #### [facility] (DEFAULT) [address] [place] [address] RBC Distribution 13.9 % Normal 10.9-14.3 [facility] Comment on above: Performed By: #### C A, CHM7, HFP, IPB, MGO #### [facility] (DEFAULT) [address] [place] [address] WBC (Bld) [#/Vol] 6.52 10*3/uL Normal 3.73-10.10 [facility] Comment on above: Performed By: #### C A, CHM7, HFP, IPB, MGO #### [facility] (DEFAULT) [address] [place] [address] CHEM 7 (LYTES,BUN,CREA,GLUC) on 09-10-2023 Anion gap [Moles/Vol] 13 mmol/L 7 - 17 mmol/L [facility] Chloride [Moles/Vol] 111 mmol/L High 98 - 10 8 mmol/L [facility] CO2 [Moles/Vol] 20 mmol/L Low 21 - 31 mmol/L [facility] Creatinine [Mass/Vol] 1.27 mg/dL 0.70 - 1.30 mg/dL [facility] eGFR, CKD-EPI, Male 69 - PINF [facility] Glucose [Mass/Vol] 100 mg/dL High 70 - 99 mg/dL [facility] Osmolality Calc [Osmolality] 293 [facility] Potassium [Moles/Vol] 4.4 mmol/L 3.5 - 5.0 mmol/L [facility] Sodium [Moles/Vol] 140 mmol/L 135 - 145 mmol/L [facility] Urea nitrogen [Mass/Vol] 12 mg/dL 7 - 25 mg/dL [facility] Urea nitrogen/Creatinine [Mass ratio] 9 mg/mg [facility] Anion gap [Moles/Vol] 13 mmol/L Normal 7-17 [facility] Comment on above: Performed By: #### C HM7, HFP, MGO #### [facility] (DEFAULT) [address] [place] [address] 20566 Chloride [Moles/Vol] 111 mmol/L High 98-108 [facility] Comment on above: Performed By: #### C HM7, HFP, MGO #### [facility] (DEFAULT) [address] [place] [address] 98840 CO2 [Moles/Vol] 20 mmol/L Low 21-31 [facility] Comment on above: Performed By: #### C HM7, HFP, MGO #### [facility] (DEFAULT) [address] [place] [address] 13260 Creatinine [Mass/Vol] 1.27 mg/dL Normal 0.70-1.30 [facility] Comment on above: Performed By: #### C HM7, HFP, MGO #### [facility] (DEFAULT) [address] [place] [address] 39492 GFR/1.73 sq M.predicted among non-blacks MDRD (S/P/Bld) [Vol rate/Area] 68 mL/min/{1.73_m2} Normal >=60 [facility] Comment on above: Result Comment: Repo rted eGFR is based on the CKD-EPI 1 equation using creatinine, age, and sex. Performed By: #### C HM7, HFP, MGO #### [facility] (DEFAULT) [address] [place] [address] 26217 Glucose [Mass/Vol] 100 mg/dL High 70-99 [facility] Comment on above: Performed By: #### C HM7, HFP, MGO #### [facility] (DEFAULT) [address] [place] [address] 96960 Osmolality [Osmolality] 293 mosm/kg Normal 278-305 [facility] Comment on above: Performed By: #### C HM7, HFP, MGO #### [facility] (DEFAULT) [address] [place] [address] 78401 Potassium [Moles/Vol] 4.4 mmol/L Normal 3.5-5.0 [facility] Comment on above: Performed By: #### Chinedu HM7, HFP, MGO #### [facility] (DEFAULT) [address] [place] [address] 66549 Sodium [Moles/Vol] 140 mmol/L Normal 135-145 [facility] Comment on above: Performed By: #### Chinedu HM7, HFP, MGO #### [facility] (DEFAULT) [address] [place] [address] 20432 Urea nitrogen [Mass/Vol] 12 mg/dL Normal 7-25 [facility] Comment on above: Performed By: #### Chinedu HM7, HFP, MGO #### [facility] (DEFAULT) [address] [place] [address] 91777 Urea nitrogen/Creatinine [Mass ratio] 9 mg/mg Normal [facility] Comment on above: Performed By: #### Chinedu HM7, HFP, MGO #### [facility] (DEFAULT) [address] [place] [address] 09772 HEPATIC FUNCTION PANELon Albumin [Mass/Vol] 3.3 g/dL Low 3.5 - 5.0 g/dL [facility] ALP [Catalytic activity/Vol] 143 U/L High 32 - 126 U/L [facility] ALT [Catalytic activity/Vol] 28 U/L 10 - 52 U/L [facility] AST [Catalytic activity/Vol] 29 U/L 10 - 39 U/L [facility] Bilirubin [Mass/Vol] 0.9 mg/dL [facility] mg/dL [facility] Bilirubin.direct [Mass/Vol] 0.2 mg/dL NINF - 0.3 mg/dL [facility] Protein [Mass/Vol] 6.8 g/dL 6.4 - 8.3 g/dL [facility] Albumin [Mass/Vol] 3.3 g/dL Low 3.5-5.0 [facility] Comment on above: Performed By: #### C HM7, HFP, MGO #### [facility] (DEFAULT) [address] [place] [address] 37177 ALP [Catalytic activity/Vol] 143 U/L High 32-126 [facility] Comment on above: Performed By: #### C HM7, HFP, MGO #### [facility] (DEFAULT) [address] [place] [address] 09884 ALT [Catalytic activity/Vol] 28 U/L Normal 10-52 [facility] Comment on above: Performed By: #### C HM7, HFP, MGO #### [facility] (DEFAULT) [address] [place] [address] 49448 AST [Catalytic activity/Vol] 29 U/L Normal 10-39 [facility] Comment on above: Performed By: #### C HM7, HFP, MGO #### [facility] (DEFAULT) [address] [place] [address] 06719 Bilirubin [Mass/Vol] 0.9 mg/dL Normal <1.5 [facility] Comment on above: Performed By: #### C HM7, HFP, MGO #### [facility] (DEFAULT) [address] [place] [address] 40265 Bilirubin.indirect [Mass/Vol] 0.2 mg/dL Normal <0.3 [facility] Comment on above: Performed By: #### C HM7, HFP, MGO #### [facility] (DEFAULT) [address] [place] [address] 94759 Protein [Mass/Vol] 6.8 g/dL Normal 6.4-8.3 [facility] Comment on above: Performed By: #### C HM7, HFP, MGO #### [facility] (DEFAULT) [address] [place] [address] 15666 MAGNESIUMon 09-10-2023 Interpretation and review of laboratory results Normal [facility] Magnesium [Mass/Vol] 1.9 mg/dL 1.6 - 2 .6 mg/dL [facility] Magnesium [Mass/Vol] 1.9 mg/dL Normal 1.6-2.6 [facility] Comment on above: Performed By: #### C TAVO MEDLEY, MGO #### [facility] (DEFAULT) [address] [place] [address] 42413 No Panel Informationon 09-10 Interpretation and review of laboratory results Abnormal [facility] TACROLIMUS LEVEL, TROUGH (MI E DRUG LEVEL)Ordered By: Jimy Castillo on 09-10-2023 Interpretation and review of laboratory results Normal [facility] Tacrolimus (Bld) [Mass/Vol] 11.8 ng/mL [facility] TACROLIMUS LEVEL, TROUGH (MI E DRUG LEVEL)on 09-10-2023 Tacrolimus, Trough 11.8 ng/mL Normal Bone Susana ow Transplant: 4.0-12.0, Therapeutic: 5.0-15.0 [facility] Comment on above: Order Comment: Pleas e draw at specified interval PRIOR to dose. Do not hold dose to wait for level. Specimens batched twice per day, (M-) and once per day weekendsMethod performed is a chemiluminescent microparticle immunoasssay on the [employer] i2000.The range is based on experience at [facility] and users should be aware that target concentrations vary widely depending on concomitant therapy, time post-transplant, and desired degree of immunosuppression. Performed By: #### C TAVO MEDLEY, MGO #### [facility] (DEFAULT) [address] [place] [address] 92011 CHEM 7 (LYTES,BUN,CREA,GLUC) on 09-09-2023 Anion gap [Moles/Vol] 14 mmol/L 7 - 17 mmol/L [facility] Chloride [Moles/Vol] 113 mmol/L High 98 - 10 8 mmol/L [facility] CO2 [Moles/Vol] 18 mmol/L Low 21 - 31 mmol/L [facility] Creatinine [Mass/Vol] 1.03 mg/dL 0.70 - 1.30 mg/dL [facility] eGFR, CKD-EPI, Male 87 - PINF [facility] Glucose [Mass/Vol] 106 mg/dL High 70 - 99 mg/dL [facility] Interpretation and review of laboratory results Abnormal [facility] Osmolality Calc [Osmolality] [address] [facility] Potassium [Moles/Vol] 4.0 mmol/L 3.5 - 5.0 mmol/L [facility] Sodium [Moles/Vol] 141 mmol/L 135 - 145 mmol/L [facility] Urea nitrogen [Mass/Vol] 10 mg/dL 7 - 25 mg/dL [facility] Urea nitrogen/Creatinine [Mass ratio] 10 mg/mg [facility] MAGNESIUMon 09-09-2023 Magnesium [Mass/Vol] 1.6 mg/dL 1.6 - 2 .6 mg/dL [facility] No Panel Informationon 09-09 Interpretation and review of laboratory results Normal [facility] PHOSPHATE, INORGANICon 09-09 Phosphate [Mass/Vol] 3.8 mg/dL 2.2 - 4 .6 mg/dL [facility] TACROLIMUS LEVEL, TROUGH (MI E DRUG LEVEL)on 09-09-2023 Interpretation and review of laboratory results Normal [facility] Tacrolimus (Bld) [Mass/Vol] 9.2 ng/mL [facility] CBC,PLATELETSon 09-08-2023 Erythrocyte distribution width (RBC) [Ratio] 13.6 % 10.9 - 14.3 % [facility] Hematocrit (Bld) [Volume fraction] 36.1 % Low 39.6 - 48.8 % [facility] Hemoglobin (Bld) [Mass/Vol] 11.6 g/dL Low 13.4 - 16.8 g/dL [facility] Interpretation and review of laboratory results Abnormal [facility] MCH (RBC) [Entitic mass] 27.4 pg 26.1 - 33.[address] [facility] MCHC (RBC) [Mass/Vol] 32.1 g/dL 31.9 - 36.5 g/dL [facility] MCV (RBC) [Entitic vol] 85.1 fL 79.0 - 94.[address] [facility] Platelet mean volume (Bld) [Entitic vol] 9.5 fL 8.7 - 12.[address] [facility] Platelets (Bld) [#/Vol] 182 10*3/uL 146 - 337 K/uL [facility] RBC (Bld) [#/Vol] 4.24 10*6/uL Low [facility] WBC (Bld) [#/Vol] 4.59 10*3/uL 3.73 - 10. 10 K/uL [facility] CHEM 7 (LYTES,BUN,CREA,GLUC) on 09-08-2023 Anion gap [Moles/Vol] 12 mmol/L 7 - 17 mmol/L [facility] Chloride [Moles/Vol] 113 mmol/L High 98 - 10 8 mmol/L [facility] CO2 [Moles/Vol] 21 mmol/L 21 - 31 mmol/L [facility] Creatinine [Mass/Vol] 1.14 mg/dL 0.70 - 1.30 mg/dL [facility] eGFR, CKD-EPI, Male 77 - PINF [facility] Glucose [Mass/Vol] 107 mg/dL High 70 - 99 mg/dL [facility] Osmolality Calc [Osmolality] [address] [facility] Potassium [Moles/Vol] 3.9 mmol/L 3.5 - 5.0 mmol/L [facility] Sodium [Moles/Vol] 142 mmol/L 135 - 145 mmol/L [facility] Urea nitrogen [Mass/Vol] 11 mg/dL 7 - 25 mg/dL [facility] Urea nitrogen/Creatinine [Mass ratio] 10 mg/mg [facility] HEPATIC FUNCTION PANELon Albumin [Mass/Vol] 2.9 g/dL Low 3.5 - 5.0 g/dL [facility] ALP [Catalytic activity/Vol] 133 U/L High 32 - 126 U/L [facility] ALT [Catalytic activity/Vol] 23 U/L 10 - 52 U/L [facility] AST [Catalytic activity/Vol] 23 U/L 10 - 39 U/L [facility] Bilirubin [Mass/Vol] 0.8 mg/dL NINF - 1.5 mg/dL [facility] Bilirubin.direct [Mass/Vol] 0.2 mg/dL NINF - 0.3 mg/dL [facility] Protein [Mass/Vol] 5.9 g/dL Low 6.4 - 8.3 g/dL [facility] MAGNESIUMon 09-08-2023 Interpretation and review of laboratory results Normal [facility] [facility] Magn[facility] [Mass/Vol] 1.8 mg/dL 1.6 - 2 .6 mg/dL [facility] No Panel Informationon 09-08 Interpretation and review of laboratory results Abnormal [facility] PHOSPHATE, INORGANICon 09-08 Interpretation and review of laboratory results Normal [facility] Phosphate [Mass/Vol] 4.1 mg/dL 2.2 - 4 .6 mg/dL [facility] TACROLIMUS LEVEL, TROUGH (MI E DRUG LEVEL)on 09-08-2023 Interpretation and review of laboratory results Normal [facility] Tacrolimus (Bld) [Mass/Vol] 8.5 ng/mL [facility] CBC,PLATELETSon 09-07-2023 Erythrocyte distribution width (RBC) [Ratio] 13.5 % 10.9 - 14.3 % [facility] Hematocrit (Bld) [Volume fraction] 37.1 % Low 39.6 - 48.8 % [facility] Hemoglobin (Bld) [Mass/Vol] 11.9 g/dL Low 13.4 - 16.8 g/dL [facility] Interpretation and review of laboratory results Abnormal [facility] MCH (RBC) [Entitic mass] 27.7 pg 26.1 - 33.[address] [facility] MCHC (RBC) [Mass/Vol] 32.1 g/dL 31.9 - 36.5 g/dL [facility] MCV (RBC) [Entitic vol] 86.5 fL 79.0 - 94.[address] [facility] Platelet mean volume (Bld) [Entitic vol] 9.6 fL 8.7 - 12.[address] [facility] Platelets (Bld) [#/Vol] 176 10*3/uL 146 - 337 K/uL [facility] RBC (Bld) [#/Vol] 4.29 10*6/uL Low [facility] WBC (Bld) [#/Vol] 4.10 10*3/uL 3.73 - 10. 10 K/uL [facility] CHEM 7 (LYTES,BUN,CREA,GLUC) on 09-07-2023 Anion gap [Moles/Vol] 13 mmol/L 7 - 17 mmol/L [facility] Chloride [Moles/Vol] 113 mmol/L High 98 - 10 8 mmol/L [facility] CO2 [Moles/Vol] 19 mmol/L Low 21 - 31 mmol/L [facility] Creatinine [Mass/Vol] 1.22 mg/dL 0.70 - 1.30 mg/dL [facility] eGFR, CKD-EPI, Male 72 - PINF [facility] Glucose [Mass/Vol] 107 mg/dL High 70 - 99 mg/dL [facility] Osmolality Calc [Osmolality] [address] [facility] Potassium [Moles/Vol] 3.9 mmol/L 3.5 - 5.0 mmol/L [facility] Sodium [Moles/Vol] 141 mmol/L 135 - 145 mmol/L [facility] Urea nitrogen [Mass/Vol] 13 mg/dL 7 - 25 mg/dL [facility] Urea nitrogen/Creatinine [Mass ratio] 11 mg/mg [facility] HEPATIC FUNCTION PANELon Albumin [Mass/Vol] 2.9 g/dL Low 3.5 - 5.0 g/dL [facility] ALP [Catalytic activity/Vol] 111 U/L 32 - 126 U/L [facility] ALT [Catalytic activity/Vol] 18 U/L 10 - 52 U/L [facility] AST [Catalytic activity/Vol] 23 U/L 10 - 39 U/L [facility] Bilirubin [Mass/Vol] 0.8 mg/dL NINF - 1.5 mg/dL [facility] Bilirubin.direct [Mass/Vol] 0.3 mg/dL High NINF - 0.3 mg/dL [facility] Protein [Mass/Vol] 6.0 g/dL Low 6.4 - 8.3 g/dL [facility] MAGNESIUMon 09-07-2023 Interpretation and review of laboratory results Normal [facility] Magnesium [Mass/Vol] 1.7 mg/dL 1.6 - 2 .6 mg/dL [facility] No Panel Informationon 09-07 Interpretation and review of laboratory results Abnormal [facility] PHOSPHATE, INORGANICon 09-07 Interpretation and review of laboratory results Normal [facility] Phosphate [Mass/Vol] 4.4 mg/dL 2.2 - 4 .6 mg/dL [facility] TACROLIMUS LEVEL, TROUGH (MI E DRUG LEVEL)Ordered By: Elizabeth Maldonado on 09-07-2023 Interpretation and review of laboratory results Normal [facility] Tacrolimus (Bld) [Mass/Vol] 7.8 ng/mL [facility] CBC,PLATELETSon 09-06-2023 Erythrocyte distribution width (RBC) [Ratio] 13.4 % 10.9 - 14.3 % [facility] Hematocrit (Bld) [Volume fraction] 38.4 % Low 39.6 - 48.8 % [facility] Hemoglobin (Bld) [Mass/Vol] 11.9 g/dL Low 13.4 - 16.8 g/dL [facility] Interpretation and review of laboratory results Abnormal [facility] MCH (RBC) [Entitic mass] 26.6 pg 26.1 - 33.[address] [facility] MCHC (RBC) [Mass/Vol] 31.0 g/dL Low 31.9 - 36.5 g/dL [facility] MCV (RBC) [Entitic vol] 85.9 fL 79.0 - 94.[address] [facility] Platelet mean volume (Bld) [Entitic vol] 9.7 fL 8.7 - 12.[address] [facility] Platelets (Bld) [#/Vol] 181 10*3/uL 146 - 337 K/uL [facility] RBC (Bld) [#/Vol] 4.47 10*6/uL [facility] WBC (Bld) [#/Vol] 4.41 10*3/uL 3.73 - 10. 10 K/uL [facility] CHEM 7 (LYTES,BUN,CREA,GLUC) on 09-06-2023 Anion gap [Moles/Vol] 14 mmol/L 7 - 17 mmol/L [facility] Chloride [Moles/Vol] 109 mmol/L High 98 - 10 8 mmol/L [facility] CO2 [Moles/Vol] 19 mmol/L Low 21 - 31 mmol/L [facility] Creatinine [Mass/Vol] 1.26 mg/dL 0.70 - 1.30 mg/dL [facility] eGFR, CKD-EPI, Male 70 - PINF [facility] Glucose [Mass/Vol] 114 mg/dL High 70 - 99 mg/dL [facility] Osmolality Calc [Osmolality] [address] [facility] Potassium [Moles/Vol] 4.1 mmol/L 3.5 - 5.0 mmol/L [facility] Sodium [Moles/Vol] 138 mmol/L 135 - 145 mmol/L [facility] Urea nitrogen [Mass/Vol] 16 mg/dL 7 - 25 mg/dL [facility] Urea nitrogen/Creatinine [Mass ratio] 13 mg/mg [facility] HEPATIC FUNCTION PANELon Albumin [Mass/Vol] 3.0 g/dL Low 3.5 - 5.0 g/dL [facility] ALP [Catalytic activity/Vol] 115 U/L 32 - 126 U/L [facility] ALT [Catalytic activity/Vol] 25 U/L 10 - 52 U/L [facility] AST [Catalytic activity/Vol] 31 U/L 10 - 39 U/L [facility] Bilirubin [Mass/Vol] 1.0 mg/dL NINF - 1.5 mg/dL [facility] Bilirubin.direct [Mass/Vol] 0.3 mg/dL High NINF - 0.3 mg/dL [facility] Protein [Mass/Vol] 6.3 g/dL Low 6.4 - 8.3 g/dL [facility] MAGNESIUMon 09-06-2023 Interpretation and review of laboratory results Normal [facility] Magnesium [Mass/Vol] 2.0 mg/dL 1.6 - 2 .6 mg/dL [facility] No Panel Informationon 09-06 Interpretation and review of laboratory results Abnormal [facility] TACROLIMUS LEVEL, TROUGH (MI E DRUG LEVEL)on 09-06-2023 Interpretation and review of laboratory results Normal [facility] Tacrolimus (Bld) [Mass/Vol] 6.7 ng/mL [facility] CBC,PLATELETSon 09-05-2023 Erythrocyte distribution width (RBC) [Ratio] 13.5 % 10.9 - 14.3 % [facility] Hematocrit (Bld) [Volume fraction] 35.6 % Low 39.6 - 48.8 % [facility] Hemoglobin (Bld) [Mass/Vol] 11.4 g/dL Low 13.4 - 16.8 g/dL [facility] Interpretation and review of laboratory results Abnormal [facility] MCH (RBC) [Entitic mass] 27.5 pg 26.1 - 33.[address] [facility] MCHC (RBC) [Mass/Vol] 32.0 g/dL 31.9 - 36.5 g/dL [facility] MCV (RBC) [Entitic vol] 86.0 fL 79.0 - 94.[address] [facility] Platelet mean volume (Bld) [Entitic vol] 10.0 fL 8.7 - 12.[address] [facility] Platelets (Bld) [#/Vol] 170 10*3/uL 146 - 337 K/uL [facility] RBC (Bld) [#/Vol] 4.14 10*6/uL Low [facility] WBC (Bld) [#/Vol] 4.24 10*3/uL 3.73 - 10. 10 K/uL [facility] CHEM 7 (LYTES,BUN,CREA,GLUC) on 09-05-2023 Anion gap [Moles/Vol] 12 mmol/L 7 - 17 mmol/L [facility] Chloride [Moles/Vol] 107 mmol/L 98 - 10 8 mmol/L [facility] CO2 [Moles/Vol] 20 mmol/L Low 21 - 31 mmol/L [facility] Creatinine [Mass/Vol] 1.43 mg/dL High 0.70 - 1.30 mg/dL [facility] eGFR, CKD-EPI, Male 60 Low - PINF [facility] Glucose [Mass/Vol] 111 mg/dL High 70 - 99 mg/dL [facility] Osmolality Calc [Osmolality] [address] [facility] Potassium [Moles/Vol] 4.2 mmol/L 3.5 - 5.0 mmol/L [facility] Sodium [Moles/Vol] 135 mmol/L 135 - 145 mmol/L [facility] Urea nitrogen [Mass/Vol] 18 mg/dL 7 - 25 mg/dL [facility] Urea nitrogen/Creatinine [Mass ratio] 13 mg/mg [facility] CONTINUOUS CARDIAC MONITORIN G STRIPon 09-05-[address] [facility] HEPATIC FUNCTION PANELon Albumin [Mass/Vol] 2.8 g/dL Low 3.5 - 5.0 g/dL [facility] ALP [Catalytic activity/Vol] 103 U/L 32 - 126 U/L [facility] ALT [Catalytic activity/Vol] 26 U/L 10 - 52 U/L [facility] AST [Catalytic activity/Vol] 38 U/L 10 - 39 U/L [facility] Bilirubin [Mass/Vol] 0.9 mg/dL NINF - 1.5 mg/dL [facility] Bilirubin.direct [Mass/Vol] 0.1 mg/dL NINF - 0.3 mg/dL [facility] Protein [Mass/Vol] 6.1 g/dL Low 6.4 - 8.3 g/dL [facility] HISTOPLASMA ANTIGEN, FLUIDon 09-05-2023 FH SOURCE BAL RML [facility] Histo FLD interpretation Negative [facility] Histoplasma Antigen, FLUID Not detected ng/mL [facility] HISTOPLASMA CAPSULATUM/BLAST OMYCES SPECIES,PCR FLUIDon 09-05-2023 HISTO/BLASTO RESULT Negative Not Applicable [facility] Specimen source Nom (Unsp spec) BAL RML [facility] IMMUNOPHENOTYPING, TISSUE/FL UIDon 09-05-2023 BKR DX CODE Use Ordering [facility] Flow Interpretation See Comment [facility] Flow Interpreted by: Yossi Perla MD, PhD [facility] MAGNESIUMon 09-05-2023 Interpretation and review of laboratory results Normal [facility] Magnesium [Mass/Vol] 1.7 mg/dL 1.6 - 2 .6 mg/dL [facility] No Panel Informationon 09-05 Interpretation and review of laboratory results Abnormal [facility] TACROLIMUS LEVEL, TROUGH (MI E DRUG LEVEL)Ordered By: Raymundo Mehta on 09-05-2023 Interpretation and review of laboratory results Normal [facility] Tacrolimus (Bld) [Mass/Vol] 5.3 ng/mL [facility] ARTERIAL BLOOD GAS (FULL GOSS EL)on 09-04-2023 Base excess Calc (Bld) [Moles/Vol] -1.2000 mmol/L -3.0 - 3.0 mmol/L [facility] Calcium.ionized (Bld) [Mass/Vol] 4.79 mg/dL 4.60 - 5.30 mg/dL [facility] Carboxyhemoglobin (Bld) [Mass fraction] 0.7 % NINF - 1.5 % [facility] CO2 (Bld) [Partial pressure] 30 mm[Hg] Low [facility] Glucose [Mass/Vol] 159 mg/dL High 70 - 99 mg/dL [facility] HCO3 (Bld) [Moles/Vol] 22 mmol/L 22 - 28 mmol/L [facility] Hematocrit (Bld) [Volume fraction] 38.0 % Low 40.2 - 50.4 % [facility] Hemoglobin (Bld) [Mass/Vol] 12.6 g/dL Low 13.4 - 16.8 g/dL [facility] Interpretation and review of laboratory results Abnormal [facility] Lactate [Moles/Vol] 2.0 mmol/L High 0.5 - 1. 6 mmol/L [facility] Methemoglobin (Bld) [Mass fraction] 0.0 % NINF - 1.5 % [facility] Oxygen (Bld) [Partial pressure] 62 mm[Hg] Low [facility] Oxygen saturation in Blood 92 % Low 94 - 98 % [facility] Oxyhemoglobin 91 % Low 94 - 98 % [facility] pH (Bld) 7.48 [pH] High 7.35 - 7.45 [facility] Potassium [Moles/Vol] 4.2 mmol/L 3.5 - 5.0 mmol/L [facility] Sodium [Moles/Vol] 130 mmol/L Low 135 - 145 mmol/L [facility] Specimen source Nom (Unsp spec) Arterial [facility] Bacteria identified Respirat ory culture Nom (Unsp spec)on 09-04-2023 Bacteria identified Cx Nom (Unsp spec) NO GROWTH DAY 2 OF [address] [facility] Microscopic observation Other stain Nom (Unsp spec) Cytocentrifuge preparation [facility] Microscopic observation Other stain Nom (Unsp spec) Neutrophils, Rare [facility] Microscopic observation Other stain Nom (Unsp spec) Red Blood Cells Present [facility] Microscopic observation Other stain Nom (Unsp spec) No organisms seen [facility] Bacteria identified Respirat ory culture Nom (Unsp spec)Ordered By: Jose Salgado on 09-04-2023 Bacteria identified Cx Nom (Unsp spec) NO GROWTH DAY 2 OF [address] [facility] Microscopic observation Other stain Nom (Unsp spec) Cytocentrifuge preparation [facility] Microscopic observation Other stain Nom (Unsp spec) Neutrophils, Moderate [facility] Microscopic observation Other stain Nom (Unsp spec) Red Blood Cells Present [facility] Microscopic observation Other stain Nom (Unsp spec) No organisms seen [facility] CBC,PLATELETSon 09-04-2023 Erythrocyte distribution width (RBC) [Ratio] 13.2 % 10.9 - 14.3 % [facility] Hematocrit (Bld) [Volume fraction] 38.7 % Low 39.6 - 48.8 % [facility] Hemoglobin (Bld) [Mass/Vol] 12.3 g/dL Low 13.4 - 16.8 g/dL [facility] Interpretation and review of laboratory results Abnormal [facility] MCH (RBC) [Entitic mass] 27.9 pg 26.1 - 33.3 pg [facility] MCHC (RBC) [Mass/Vol] 31.8 g/dL Low 31.9 - 36.5 g/dL [facility] MCV (RBC) [Entitic vol] 87.8 fL 79.0 - 94.[address] [facility] Platelet mean volume (Bld) [Entitic vol] 9.8 fL 8.7 - 12.[address] [facility] Platelets (Bld) [#/Vol] 173 10*3/uL 146 - 337 K/uL [facility] RBC (Bld) [#/Vol] 4.41 10*6/uL [facility] WBC (Bld) [#/Vol] 4.57 10*3/uL 3.73 - 10. 10 K/uL [facility] CHEM 7 (LYTES,BUN,CREA,GLUC) on 09-04-2023 Anion gap [Moles/Vol] 16 mmol/L 7 - 17 mmol/L [facility] Chloride [Moles/Vol] 104 mmol/L 98 - 10 8 mmol/L [facility] CO2 [Moles/Vol] 18 mmol/L Low 21 - 31 mmol/L [facility] Creatinine [Mass/Vol] 1.22 mg/dL 0.70 - 1.30 mg/dL [facility] eGFR, CKD-EPI, Male 72 - PINF [facility] Glucose [Mass/Vol] 124 mg/dL High 70 - 99 mg/dL [facility] Osmolality Calc [Osmolality] 284 [facility] Potassium [Moles/Vol] 3.9 mmol/L 3.5 - 5.0 mmol/L [facility] Sodium [Moles/Vol] 134 mmol/L Low 135 - 145 mmol/L [facility] Urea nitrogen [Mass/Vol] 15 mg/dL 7 - 25 mg/dL [facility] Urea nitrogen/Creatinine [Mass ratio] 12 mg/mg [facility] CMV PCR,FLUIDS,URINE,EYE ETC on 09-04-2023 Specimen source Nom (Unsp spec) [facility] Specimen source Nom (Unsp spec) BAL RML [facility] HEPATIC FUNCTION PANELon Albumin [Mass/Vol] 3.0 g/dL Low 3.5 - 5.0 g/dL [facility] ALP [Catalytic activity/Vol] 112 U/L 32 - 126 U/L [facility] ALT [Catalytic activity/Vol] 22 U/L 10 - 52 U/L [facility] AST [Catalytic activity/Vol] 30 U/L 10 - 39 U/L [facility] Bilirubin [Mass/Vol] 1.2 mg/dL NINF - 1.5 mg/dL [facility] Bilirubin.direct [Mass/Vol] 0.4 mg/dL High NINF - 0.3 mg/dL [facility] Protein [Mass/Vol] 6.4 g/dL 6.4 - 8.3 g/dL [facility] LEGIONELLA PCRon 09-04-2023 Legionella sp rRNA Probe Ql (Unsp spec) Negative Not Applicable [facility] Specimen source Nom (Unsp spec) BAL RML [facility] Laboratory - Microbiology an d Antimicrobial susceptibilityon 09-04-2023 CMV DNA ESTELITA+probe Ql (Unsp spec) Negative Negative [facility] MAGNESIUMon 09-04-2023 Magnesium [Mass/Vol] 1.4 mg/dL Low 1.6 - 2 .6 mg/dL [facility] No Panel Informationon 09-04 Annotation comment [Interpretation] Narrative DNR [facility] PN Report Status DNR [facility] Pneumocystis jiroveci,PCR result Negative Not Applicable [facility] Interpretation and review of laboratory results Abnormal [facility] PNEUMOCYSTIS JIROVECI,PCRon 09-04-2023 Specimen source Nom (Unsp spec) BAL LLL [facility] Specimen source Nom (Unsp spec) BAL RML [facility] Portable XR Chest Viewson RADIOLOGY RADIOLOGY [facility] Radiology Study observation (narrative) [facility] Portable XR Chest ViewsOrder ed By: Joanie Nugent on 09-04-[address] [facility] Work Phone: TACROLIMUS LEVEL, TROUGH (MI E DRUG LEVEL)on 09-04-2023 Interpretation and review of laboratory results Abnormal [facility] Tacrolimus (Bld) [Mass/Vol] 3.6 ng/mL Low [facility] ASPERGILLUS ANTIGEN, BALon 1 Galactomannan Ag IA Qn (Unsp spec) <0.500 [facility] Galactomannan Ag IA Qn (Unsp spec) <0.500 [facility] BAL CONSULTOrdered By: Noa Peralta on 09-03-2023 ALVEOLAR MACROPHAGES 32 % [facility] Work Phone: Bal comments Correlation with microbiology stains and cultures is recommended. [facility] Work Phone: Bal Diff Quik Stain Quality Check Acceptable [facility] Work Phone: BKR BAL INTERPRETATION Cellular specimen comprised of alveolar macrophages and small lymphocytes. No definitive microorganisms are observed. Moderate degenerative changes. [facility] Work Phone: BKR DX CODE Use Ordering [facility] Work Phone: Eosinophils Patterson stain Ql (Unsp spec) 0 % [facility] Work Phone: Lymphocytes/100 WBC (Bld) 57 % [facility] Work Phone: Neutrophils/100 WBC Manual cnt (Bronch spec) 11 % [facility] Work Phone: Pathologist review Jame (Unsp spec) [Interp] Leonardo Peralta MD [facility] Work Phone: [facility] Work Phone: BAL CONSULTon 09-03-2023 ALVEOLAR MACROPHAGES 33 % [facility] Bal comments Correlation with microbiology stains and cultures is recommended. Correlation with viral studies is recommended. [facility] Bal Diff Quik Stain Quality Check Acceptable [facility] BKR BAL INTERPRETATION Cellular specimen comprised of alveolar macrophages and small lymphocytes. No definitive microorganisms are observed. Rare degenerating cells with changes suggestive of viral cytopathic effect are noted. Moderate degenerative changes. [facility] BKR DX CODE Use Ordering [facility] Eosinophils Patterson stain Ql (Unsp spec) 0 % [facility] Lymphocytes/100 WBC (Bld) 49 % [facility] Neutrophils/100 WBC Manual cnt (Bronch spec) 18 % [facility] Pathologist review Jame (Unsp spec) [Interp] Leonardo Peralta MD [facility] BRONCHOSCOPYon 09-03-2023 LAB, [facility] CBC,PLATELETSon 09-03-2023 Erythrocyte distribution width (RBC) [Ratio] 13.4 % 10.9 - 14.3 % [facility] Hematocrit (Bld) [Volume fraction] 39.6 % 39.6 - 48.8 % [facility] Hemoglobin (Bld) [Mass/Vol] 12.8 g/dL Low 13.4 - 16.8 g/dL [facility] Interpretation and review of laboratory results Abnormal [facility] MCH (RBC) [Entitic mass] 27.8 pg 26.1 - 33.[address] [facility] MCHC (RBC) [Mass/Vol] 32.3 g/dL 31.9 - 36.5 g/dL [facility] MCV (RBC) [Entitic vol] 85.9 fL 79.0 - 94.[address] [facility] Platelet mean volume (Bld) [Entitic vol] 9.4 fL 8.7 - 12.[address] [facility] Platelets (Bld) [#/Vol] 222 10*3/uL 146 - 337 K/uL [facility] RBC (Bld) [#/Vol] 4.61 10*6/uL [facility] WBC (Bld) [#/Vol] 4.36 10*3/uL 3.73 - 10. 10 K/uL [facility] 7 (LYTES,BUN,CREA,GLUC) on 09-03-2023 Anion gap [Moles/Vol] 12 mmol/L 7 - 17 mmol/L [facility] Chloride [Moles/Vol] 104 mmol/L 98 - 10 8 mmol/L [facility] CO2 [Moles/Vol] 24 mmol/L 21 - 31 mmol/L [facility] Creatinine [Mass/Vol] 1.20 mg/dL 0.70 - 1.30 mg/dL [facility] eGFR, CKD-EPI, Male 74 - PINF [facility] Glucose [Mass/Vol] 112 mg/dL High 70 - 99 mg/dL [facility] Osmolality Calc [Osmolality] 288 [facility] Potassium [Moles/Vol] 4.1 mmol/L 3.5 - 5.0 mmol/L [facility] Sodium [Moles/Vol] 136 mmol/L 135 - 145 mmol/L [facility] Urea nitrogen [Mass/Vol] 17 mg/dL 7 - 25 mg/dL [facility] Urea nitrogen/Creatinine [Mass ratio] 14 mg/[facility] CYTOLOGY, NON-GYNOrdered By: Sherice Jimenez on 09-03-2023 CYTOLOGIC DIAGNOSIS r1zheELlEZEixKYgTGWjK6 nihtVsGBCctQWeD6Hxdddq YPhbLY9zBF4xtUxogIXnaV PaKLQoUyNgs5hjv349pXJx x7bkMJNEormoiTr9j0gyZZ YUhQ1xx8v3hJ13DNLnlT8h dGJsIDtccmVkMFxncmVlbj UdNjp6KZF6zPveRfwnnSH0 wGCpuDD1TVlhq1IrsSdhsN ihDSD1DUOdUqxgVBxhdGM2 qGTotOheqGWuEI9wq7mmzC B5zbNhZUY4vNicuDE2qYyc cfhbf7lacCX1hAP3OIzipV Z4EWcyDdHtF7tsWXQzlG9i I64nC5cyFEFvcDyiCBzuLS WnbVA0MRU6KJZga8iuDOSs uTGwnXVlCcWaSBlzMpd8u3 whENJloB62zMArbiX1tZxo PMnuhTG0IK11LCjrn3XvJX NbcNwvBOOlkV8iYeVfVIsd dmVsbmZjbjIzXGxldmVsam CiXPwghfVkh3PsnaNckBR2 IWdvreYhjSK1dUjeELLxC0 C8J477ICuudqBkioAyKfKp seu9WIQyaOwurXlbmUnvxk VsXGxldmVsbmZjMjNcbGV2 WJsjFgQcWdWnuGG6JRkdVh DgqVR2GUoxrLHbySR1NUjz hPQ4APd7XCk9RZnhCCusSj q3xKssfGJ1SSoeoX7rMTFq W45jVsD0y3weoSZ5pKU2VC povPA1VWekPtJkK2ymROVe lW8pO97dN0dfKJKkaRayUE mbNOSitBG6QKA9ZKTes1fk ZXZlbHRleHRcJzAxXCdiNz l2i6kpXTXzqK97uDJqhqO5 gShzID59UDguw3YpLNXvyI ocWIAqlN9fHuJvWDnmgjRp bmZjbjIzXGxldmVsamMwXG excoThy5ZyvvOpnJP1WVrs xdLkgUP7dCioXCBnQ4F6N7 68XEgadfYtlqVbHnUxlvp9 XGYxfXtcbGlzdGxldmVsXG latsTjmmNgQgUedSO6UZmq RtHcGoFzgEE3EYemIsAncK T7YQgrhEIhhQC4JSveaUS2 ZYc5QUe1TJaeZWneCkp4iK czyNB7DZdbwJ4vTZDbD37v VkT7x5dydNS0uHD4HGopoG K4ELyyRcCuS4ewIRJibV0f W20mZ2uyVELmwUktCSycQR NnjKL6JUH3FCOqo7gmHJMk nBOqmPFzLpCkAWiqXkw5o2 ixOAHrrR99qTJcliS6uLkl KD29VZeth8PjYCLiwQipJA DkuB5uZxXqHEbyxpNlnaEy bjIzXGxldmVsamMwXGxldm Myk5BblbWdbLC8YIjruhUo bRJ9zYedESKlJ6V1Q893MQ glsmRlwuPbOqVbqqr2QHOe fXtcbGlzdGxldmVsXGxldm VunuWvPmArhYA0PKoyLmCr MiUyaTK2FBcrGuEzhUB2DS ombYKmcPX4VAgdyEO9RNg1 CMq9CErcPUnkOet9cYwpdG N4MTmokH0yMDBlL25lVsL3 lW77TWdufHhosN58XZTqdJ EltSAicGV1MBlrlJuxlJ89 FYFatFAmMPets0BtBTCiYu S9LTZ2OBZwnCqwxS92YKNu eWCsC648sdWaGAvgUL41EL BhcGVydzEyMjQwXHBhcGVy iUA3ODEzGR0gvyvnRAciWO csDKRrayI5YOEwsWOmI2Wg WUKnNF2jhtgwYPH8DAtzVR KzPHQ8LlVsFAUco4Afsbg1 VjJqxJt2k0raGQYwHVWesT xhm3niZIF6MWEahRKiE5li bU4jWYXcLG6ktzhyu5auSG ceCHvcCYSdhTT2dcM3NFFv wGDzP7FgcQ4kBISlTNMykd AvkUkytR4sKdpxgeBtHNBc QBDDJiNSQo5MZ2hFUSuUWE 9MQVIgTEFWQUdFLCBMRUZU RLsLM8UHVVcTMlWfOMHkUX EcT3qDY9yAE8yqPpxtOdEs ISwvPKLrLhReS2ZaZFAtve jpDSAuWTIXNG6IKJJQXLYY Dr6DUOH9FKTozbwtmCK3TP muiaYycKl7xXBmlNcksF9r YlxmczIyXGNmMSBObyBNYW dsT10jfcGhH1GxoALiIXDi BHxkHI13qGZiNXAlyLPvNF j0zK2uVRjpeZtovrPFlFQx kN5heonzPZakDcOhsJYjIT xpMFxsczBccGFyfQ== [facility] Work Phone: Case Report [facility] Work Phone: Clinical History k9xpmKDjHXZvqJOlNIZv M1 awqxHtDDEliWZeU0Hkndnj XRhsXB7cLI2ksPrqmPQptR AaWEDsBvBob9mvv690oJKc y4nyXMXVqblxrAm8zTghV7 4ip5T4NflfK5weJEDyCSni FUBqZSqgrOWoEQp8JSVqsG VydzEyMjQwXHBhcGVyaDE1 BJZvAO6irriiNKzrYDutZS FlirR1HEWgxRLgH8RrTIDx FO7wrmbsIYK6EEtzMSXjHX R4EkVyDKSci3Otpxu0OvTy qKp9c6npFZEsDWAtvZdos7 dvLJQ5IWWjiFPxH9rybM0d ZMHkTO8lmzyrg7bcLDevDF lqFLHxqJI3cfS2IERmoOXe K3JmfN3nZEBdOWIiecKerR glxA4pOiFlZZtqIpTfOcYv WZhfwWBupfScyPIllN3cST Bhcn0= [facility] Work Phone: For Immediate Release [facility] Yes Yes [facility] Work Phone: Gross Description m6asfUGiHJUsuUOsBCRk M1 hxetVbAVBtxHTnC5Lkkrfi FLfwSS9oTP7dkVqxfOWmjL ApTPStZpBoi5pvg345dTZg v8bgACYNkgnvhIh9yPcyS0 8jx7O5LkbdB64kvFZwWJL5 WRXoSXUauCUrZRLoFVY4DQ ZgyCMnM6udYKZaQJ7kgxpy IKdlDAanJBFbsSW3WCOhbS EgG2HzEVZmOVevIOEcwps9 UlGuNe9mmYVmfGqxFFyiWP JkXHBsYWluXGZzMjAgTExM IEJBTFxwYXIgMSBtbCBoYX m8QZEibD3fqLWxceGifCMw yS4slMfmDIbaGXOlCBLLGF PdhZzbSJYTDVAbw4RepQ2d cGFyXHBhcmRccGFyXHBhcn 0= [facility] Work Phone: [facility] Work Phone: HEPATIC FUNCTION PANELon Albumin [Mass/Vol] 3.2 g/dL Low 3.5 - 5.0 g/dL [facility] ALP [Catalytic activity/Vol] 118 U/L 32 - 126 U/L [facility] [place] ALT [Catalytic activity/Vol] 25 U/L 10 - 52 U/L [facility] AST [Catalytic activity/Vol] 32 U/L 10 - 39 U/L [facility] Bilirubin [Mass/Vol] 1.0 mg/dL NINF - 1.5 mg/dL [facility] Bilirubin.direct [Mass/Vol] 0.3 mg/dL High NINF - 0.3 mg/dL [facility] Protein [Mass/Vol] 6.5 g/dL 6.4 - 8.3 g/dL [facility] HISTOPLASMA AND BLASTOMYCES ANTIGEN, ENZYME IMMUNOASSAY, SERMon 09-03-2023 Histoplasma/Blastomyce s Ag Result Detected Critically abnormal Not Detected [facility] Histoplasma/Blastomyce s Ag Value 5.3 ng/mL [facility] Interpretation and review of laboratory results Abnormal [facility] MAGNESIUMon 09-03-2023 Interpretation and review of laboratory results Normal [facility] Magnesium [Mass/Vol] 1.6 mg/dL 1.6 - 2 .6 mg/dL [facility] No Panel Informationon 09-03 Interpretation and review of laboratory results Abnormal [facility] PARVOVIRUS (B19) DNA, PCR, [place] Burden 09-03-2023 PARVOVIRUS B19 BY RAPID PCR Not detected Not Detected [facility] MI SPEC SOURCE Whole Blood [facility] Portable XR Chest Viewson RADIOLOGY RADIOLOGY [facility] Radiology Study observation (narrative) [facility] Portable XR Chest ViewsOrder ed By: Lester Grove on 09-03-[address] [facility] Work Phone: ASPERGILLUS (GALACTOMANNAN), ANTIGENon 09-02-2023 Galactomannan Ag IA Qn <0.500 NINF OS [facility] ATYPICAL BACTERIAL PNEUMONIA ,PCROrdered By: Shari Contreras on 09-02-2023 B. parapertussis DNA ESTELITA+probe Ql (Unsp spec) Not detected Not Detected [facility] B. pertussis DNA ESTELITA+probe Ql (Unsp spec) Not detected Not Detected [facility] C. pneumoniae DNA ESTELITA+probe Ql (Unsp spec) Not detected Not Detected [facility] Interpretation and review of laboratory results Normal [facility] M. pneumoniae DNA ESTELITA+probe Ql (Unsp spec) Not detected Not Detected [facility] BRONCHOSCOPYon 09-02-2023 Radiology Study observation (narrative) [facility] Bacteria identified Cx Nom ( Bld)on 09-02-2023 Bacteria identified Cx Nom (Unsp spec) NO GROWTH DAY 5 OF 5 [facility] CBC,PLATELETSon 09-02-2023 Erythrocyte distribution width (RBC) [Ratio] 13.2 % 10.9 - 14.3 % [facility] Hematocrit (Bld) [Volume fraction] 39.9 % 39.6 - 48.8 % [facility] Hemoglobin (Bld) [Mass/Vol] 12.9 g/dL Low 13.4 - 16.8 g/dL [facility] Interpretation and review of laboratory results Abnormal [facility] MCH (RBC) [Entitic mass] 27.9 pg 26.1 - 33.[address] [facility] MCHC (RBC) [Mass/Vol] 32.3 g/dL 31.9 - 36.5 g/dL [facility] MCV (RBC) [Entitic vol] 86.4 fL 79.0 - 94.[address] [facility] Platelet mean volume (Bld) [Entitic vol] 9.5 fL 8.7 - 12.[address] [facility] Platelets (Bld) [#/Vol] 210 10*3/uL 146 - 337 K/uL [facility] RBC (Bld) [#/Vol] 4.62 10*6/uL [facility] WBC (Bld) [#/Vol] 4.12 10*3/uL 3.73 - 10. 10 K/uL [facility] CHEM 7 (LYTES,BUN,CREA,GLUC) on 09-02-2023 Anion gap [Moles/Vol] 13 mmol/L 7 - 17 mmol/L [facility] Chloride [Moles/Vol] 105 mmol/L 98 - 10 8 mmol/L [facility] CO2 [Moles/Vol] 22 mmol/L 21 - 31 mmol/L [facility] Creatinine [Mass/Vol] 1.25 mg/dL 0.70 - 1.30 mg/dL [facility] eGFR, CKD-EPI, Male 70 - PINF [facility] Glucose [Mass/Vol] 105 mg/dL High 70 - 99 mg/dL [facility] Osmolality Calc [Osmolality] 287 [facility] [place] Potassium [Moles/Vol] 4.3 mmol/L 3.5 - 5.0 mmol/L [facility] Sodium [Moles/Vol] 136 mmol/L 135 - 145 mmol/L [facility] Urea nitrogen [Mass/Vol] 16 mg/dL 7 - 25 mg/dL [facility] Urea nitrogen/Creatinine [Mass ratio] 13 mg/mg [facility] HEPATIC FUNCTION PANELon Albumin [Mass/Vol] 3.2 g/dL Low 3.5 - 5.0 g/dL [facility] ALP [Catalytic activity/Vol] 107 U/L 32 - 126 U/L [facility] ALT [Catalytic activity/Vol] 20 U/L 10 - 52 U/L [facility] AST [Catalytic activity/Vol] 31 U/L 10 - 39 U/L [facility] Bilirubin [Mass/Vol] 1.0 mg/dL NINF - 1.5 mg/dL [facility] Bilirubin.direct [Mass/Vol] 0.3 mg/dL High NINF - 0.3 mg/dL [facility] Protein [Mass/Vol] 6.6 g/dL 6.4 - 8.3 g/dL [facility] HISTOPLASMA ANTIGEN,URINEon 09-02-2023 H. capsulatum Ag (U) [Mass/Vol] Not detected ng/mL [facility] H. capsulatum Ag IA Ql (U) Not detected Not Detected [facility] HIV 1 AND 2 ANTIBODIES/P24 A NTIGENOrdered By: Wilma Luque on 09-02-2023 HIV 1+2 Ab+HIV1 p24 Ag IA Ql Non-Reactive Non Reactive [facility] Interpretation and review of laboratory results Normal [facility] MAGNESIUMon 09-02-2023 Interpretation and review of laboratory results Normal [facility] Magnesium [Mass/Vol] 1.7 mg/dL 1.6 - 2 .6 mg/dL [facility] No Panel Informationon 09-02 Interpretation and review of laboratory results Abnormal [facility] TACROLIMUS LEVEL, TROUGH (MI E DRUG LEVEL)on 09-02-2023 Interpretation and review of laboratory results Normal [facility] Tacrolimus (Bld) [Mass/Vol] 4.2 ng/mL [facility] CBC,PLATELETSon 09-01-2023 Erythrocyte distribution width (RBC) [Ratio] 13.4 % 10.9 - 14.3 % [facility] Hematocrit (Bld) [Volume fraction] 38.9 % Low 39.6 - 48.8 % [facility] Hemoglobin (Bld) [Mass/Vol] 12.7 g/dL Low 13.4 - 16.8 g/dL [facility] Interpretation and review of laboratory results Abnormal [facility] MCH (RBC) [Entitic mass] 27.6 pg 26.1 - 33.[address] [facility] MCHC (RBC) [Mass/Vol] 32.6 g/dL 31.9 - 36.5 g/dL [facility] MCV (RBC) [Entitic vol] 84.6 fL 79.0 - 94.[address] [facility] Platelet mean volume (Bld) [Entitic vol] 9.4 fL 8.7 - 12.[address] [facility] Platelets (Bld) [#/Vol] 209 10*3/uL 146 - 337 K/uL [facility] RBC (Bld) [#/Vol] 4.60 10*6/uL [facility] WBC (Bld) [#/Vol] 4.41 10*3/uL 3.73 - 10. 10 K/uL [facility] CHEM 7 (LYTES,BUN,CREA,GLUC) on 09-01-2023 Anion gap [Moles/Vol] 14 mmol/L 7 - 17 mmol/L [facility] Chloride [Moles/Vol] 103 mmol/L 98 - 10 8 mmol/L [facility] CO2 [Moles/Vol] 21 mmol/L 21 - 31 mmol/L [facility] Creatinine [Mass/Vol] 1.16 mg/dL 0.70 - 1.30 mg/dL [facility] eGFR, CKD-EPI, Male 76 - PINF [facility] Glucose [Mass/Vol] 117 mg/dL High 70 - 99 mg/dL [facility] Osmolality Calc [Osmolality] [address] [facility] Potassium [Moles/Vol] 4.2 mmol/L 3.5 - 5.0 mmol/L [facility] Sodium [Moles/Vol] 134 mmol/L Low 135 - 145 mmol/L [facility] Urea nitrogen [Mass/Vol] 18 mg/dL 7 - 25 mg/dL [facility] Urea nitrogen/Creatinine [Mass ratio] 16 mg/mg [facility] CRYPTOCOCCAL ANTIGENon 09-01 Cryptococcus sp Ag Ql (S) Negative Negative [facility] Interpretation and review of laboratory results Normal [facility] HEPATIC FUNCTION PANELon Albumin [Mass/Vol] 3.3 g/dL Low 3.5 - 5.0 g/dL [facility] ALP [Catalytic activity/Vol] 112 U/L 32 - 126 U/L [facility] ALT [Catalytic activity/Vol] 21 U/L 10 - 52 U/L [facility] AST [Catalytic activity/Vol] 29 U/L 10 - 39 U/L [facility] Bilirubin [Mass/Vol] 1.0 mg/dL NINF - 1.5 mg/dL [facility] Bilirubin.direct [Mass/Vol] 0.2 mg/dL NINF - 0.3 mg/dL [facility] Protein [Mass/Vol] 6.8 g/dL 6.4 - 8.3 g/dL [facility] L. pneumophila 1 Ag IA Ql (U )Ordered By: Carolin Miles on 09-01-2023 Interpretation and review of laboratory results Normal [facility] LEGIONELLA URINARY AGOrdered By: Carolin Miles on 09-01-2023 L. pneumophila 1 Ag IA Ql (U) Negative Negative [facility] MAGNESIUMon 09-01-2023 Interpretation and review of laboratory results Normal [facility] Magnesium [Mass/Vol] 1.6 mg/dL 1.6 - 2 .6 mg/dL [facility] No Panel Informationon 09-01 Interpretation and review of laboratory results Abnormal [facility] CBC,PLATELETSon 08-31-2023 Erythrocyte distribution width (RBC) [Ratio] 13.3 % 10.9 - 14.3 % [facility] Hematocrit (Bld) [Volume fraction] 39.4 % Low 39.6 - 48.8 % [facility] Hemoglobin (Bld) [Mass/Vol] 12.8 g/dL Low 13.4 - 16.8 g/dL [facility] Interpretation and review of laboratory results Abnormal [facility] MCH (RBC) [Entitic mass] 27.6 pg 26.1 - 33.[address] [facility] MCHC (RBC) [Mass/Vol] 32.5 g/dL 31.9 - 36.5 g/dL [facility] MCV (RBC) [Entitic vol] 85.1 fL 79.0 - 94.[address] [facility] Platelet mean volume (Bld) [Entitic vol] 9.6 fL 8.7 - 12.[address] [facility] Platelets (Bld) [#/Vol] 228 10*3/uL 146 - 337 K/uL [facility] RBC (Bld) [#/Vol] 4.63 10*6/uL [facility] [#/Vol] 4.77 10*3/uL 3.73 - 10. 10 K/uL [facility]M 7 (LYTES,BUN,CREA,GLUC) on 08-31-2023 Anion gap [Moles/Vol] 13 mmol/L 7 - 17 mmol/L [facility] Chloride [Moles/Vol] 102 mmol/L 98 - 10 8 mmol/L [facility] CO2 [Moles/Vol] 23 mmol/L 21 - 31 mmol/L [facility] Creatinine [Mass/Vol] 1.37 mg/dL High 0.70 - 1.30 mg/dL [facility] eGFR, CKD-EPI, Male 62 - PINF [facility] Glucose [Mass/Vol] 112 mg/dL High 70 - 99 mg/dL [facility] Osmolality Calc [Osmolality] 284 [facility] Potassium [Moles/Vol] 4.4 mmol/L 3.5 - 5.0 mmol/L [facility] Sodium [Moles/Vol] 134 mmol/L Low 135 - 145 mmol/L [facility] Urea nitrogen [Mass/Vol] 16 mg/dL 7 - 25 mg/dL [facility] Urea nitrogen/Creatinine [Mass ratio] 12 mg/mg [facility] CT Abdomen and Pelvis WO con traston 08-31-2023 RADIOLOGY [address] [facility] Radiology Study observation (narrative) [facility] CT Abdomen and Pelvis WO con trastOrdered By: Chavez Larkin on 08-31-[address] [facility] Work Phone: CT Chest WO contraston 08-31 RADIOLOGY RADIOLOGY [facility] Radiology Study observation (narrative) [facility] CT Chest WO contrastOrdered By: Daisha Patterson on 08-31-[address] [facility] Work Phone: FERRITINon 08-31-2023 Ferritin [Mass/Vol] 409.0 ng/mL High 10.5 - 3 07.3 ng/mL [facility] Interpretation and review of laboratory results Abnormal [facility] HEPATIC FUNCTION PANELon Albumin [Mass/Vol] 3.3 g/dL Low 3.5 - 5.0 g/dL [facility] ALP [Catalytic activity/Vol] 113 U/L 32 - 126 U/L [facility] ALT [Catalytic activity/Vol] 25 U/L 10 - 52 U/L [facility] AST [Catalytic activity/Vol] 31 U/L 10 - 39 U/L [facility] Bilirubin [Mass/Vol] 1.1 mg/dL NINF - 1.5 mg/dL [facility] Bilirubin.direct [Mass/Vol] 0.3 mg/dL High NINF - 0.3 mg/dL [facility] Protein [Mass/Vol] 7.0 g/dL 6.4 - 8.3 g/dL [facility] MAGNESIUMon 08-31-2023 Interpretation and review of laboratory results Normal [facility] Magnesium [Mass/Vol] 1.7 mg/dL 1.6 - 2 .6 mg/dL [facility] No Panel Informationon 08-31 Interpretation and review of laboratory results Abnormal [facility] PROCALCITONINon 08-31-2023 Interpretation and review of laboratory results Normal [facility] Procalcitonin [Mass/Vol] 0.23 ng/mL NINF - 0.50 ng/mL [facility] TACROLIMUS LEVEL, TROUGH (MI E DRUG LEVEL)Ordered By: Yanira Marcum on 08-31-2023 Interpretation and review of laboratory results Normal [facility] Tacrolimus (Bld) [Mass/Vol] 5.9 ng/mL [facility] URINE CULTUREOrdered By: Jorge Lozano on 08-31-2023 Bacteria identified Cx Nom (Unsp spec) No Growth [facility] DARYL AURIS SCREEN BY PCRO rdered By: Mynor Alejandro on 08-30-2023 Daryl auris Screen by PCR Not detected Not Detected [facility] Interpretation and review of laboratory results Normal [facility] CBC,PLATELETSon 08-30-2023 Erythrocyte distribution width (RBC) [Ratio] 13.3 % 10.9 - 14.3 % [facility] Hematocrit (Bld) [Volume fraction] 41.3 % 39.6 - 48.8 % [facility] Hemoglobin (Bld) [Mass/Vol] 13.2 g/dL Low 13.4 - 16.8 g/dL [facility] Interpretation and review of laboratory results Abnormal [facility] MCH (RBC) [Entitic mass] 27.3 pg 26.1 - 33.[address] [facility] MCHC (RBC) [Mass/Vol] 32.0 g/dL 31.9 - 36.5 g/dL [facility] MCV (RBC) [Entitic vol] 85.5 fL 79.0 - 94.[address] [facility] Platelet mean volume (Bld) [Entitic vol] 9.2 fL 8.7 - 12.[address] [facility] Platelets (Bld) [#/Vol] 235 10*3/uL 146 - 337 K/uL [facility] RBC (Bld) [#/Vol] 4.83 10*6/uL [facility] WBC (Bld) [#/Vol] 4.96 10*3/uL 3.73 - 10. 10 K/uL [facility] CHEM 7 (LYTES,BUN,CREA,GLUC) on 08-30-2023 Anion gap [Moles/Vol] 14 mmol/L 7 - 17 mmol/L [facility] Chloride [Moles/Vol] 102 mmol/L 98 - 10 8 mmol/L [facility] CO2 [Moles/Vol] 20 mmol/L Low 21 - 31 mmol/L [facility] Creatinine [Mass/Vol] 1.56 mg/dL High 0.70 - 1.30 mg/dL [facility] eGFR, CKD-EPI, Male 54 Low - PINF [facility] Glucose [Mass/Vol] 123 mg/dL High 70 - 99 mg/dL [facility] Osmolality Calc [Osmolality] 281 [facility] Potassium [Moles/Vol] 4.3 mmol/L 3.5 - 5.0 mmol/L [facility] Sodium [Moles/Vol] 132 mmol/L Low 135 - 145 mmol/L [facility] Urea nitrogen [Mass/Vol] 16 mg/dL 7 - 25 mg/dL [facility] Urea nitrogen/Creatinine [Mass ratio] 10 mg/mg [facility] EXTRA MICROon 08-30-[address] [facility] HEPATIC FUNCTION PANELon Albumin [Mass/Vol] 3.7 g/dL 3.5 - 5.0 g/dL [facility] ALP [Catalytic activity/Vol] 115 U/L 32 - 126 U/L [facility] ALT [Catalytic activity/Vol] 22 U/L 10 - 52 U/L [facility] AST [Catalytic activity/Vol] 34 U/L 10 - 39 U/L [facility] Bilirubin [Mass/Vol] 1.2 mg/dL NINF - 1.5 mg/dL [facility] Bilirubin.direct [Mass/Vol] 0.3 mg/dL High NINF - 0.3 mg/dL [facility] Protein [Mass/Vol] 7.7 g/dL 6.4 - 8.3 g/dL [facility] MAGNESIUMon 08-30-2023 Interpretation and review of laboratory results Normal [facility] Magnesium [Mass/Vol] 1.8 mg/dL 1.6 - 2 .6 mg/dL [facility] No Panel Informationon 08-30 Interpretation and review of laboratory results Abnormal [facility] CBC,PLATELETSon 08-29-2023 Erythrocyte distribution width (RBC) [Ratio] 13.4 % 10.9 - 14.3 % [facility] Hematocrit (Bld) [Volume fraction] 37.6 % Low 39.6 - 48.8 % [facility] Hemoglobin (Bld) [Mass/Vol] 12.2 g/dL Low 13.4 - 16.8 g/dL [facility] Interpretation and review of laboratory results Abnormal [facility] MCH (RBC) [Entitic mass] 27.6 pg 26.1 - 33.[address] [facility] MCHC (RBC) [Mass/Vol] 32.4 g/dL 31.9 - 36.5 g/dL [facility] MCV (RBC) [Entitic vol] 85.1 fL 79.0 - 94.[address] [facility] Platelet mean volume (Bld) [Entitic vol] 9.4 fL 8.7 - 12.[address] [facility] Platelets (Bld) [#/Vol] 233 10*3/uL 146 - 337 K/uL [facility] RBC (Bld) [#/Vol] 4.42 10*6/uL [facility] WBC (Bld) [#/Vol] 4.92 10*3/uL 3.73 - 10. 10 K/uL [facility] CHEM 7 (LYTES,BUN,CREA,GLUC) on 08-29-2023 Anion gap [Moles/Vol] 13 mmol/L 7 - 17 mmol/L [facility] Chloride [Moles/Vol] 105 mmol/L 98 - 10 8 mmol/L [facility] CO2 [Moles/Vol] 20 mmol/L Low 21 - 31 mmol/L [facility] Creatinine [Mass/Vol] 1.55 mg/dL High 0.70 - 1.30 mg/dL [facility] eGFR, CKD-EPI, Male 55 Low - PINF [facility] Glucose [Mass/Vol] 108 mg/dL High 70 - 99 mg/dL [facility] Osmolality Calc [Osmolality] [address] [facility] Potassium [Moles/Vol] 4.5 mmol/L 3.5 - 5.0 mmol/L [facility] Sodium [Moles/Vol] 133 mmol/L Low 135 - 145 mmol/L [facility] Urea nitrogen [Mass/Vol] 19 mg/dL 7 - 25 mg/dL [facility] Urea nitrogen/Creatinine [Mass ratio] 12 mg/mg [facility] GGTon 08-29-2023 Gamma glutamyl transferase [Catalytic activity/Vol] 64 U/L 8 - 64 U/L [facility] Interpretation and review of laboratory results Normal [facility] HEPATIC FUNCTION PANELon Albumin [Mass/Vol] 3.3 g/dL Low 3.5 - 5.0 g/dL [facility] ALP [Catalytic activity/Vol] 103 U/L 32 - 126 U/L [facility] ALT [Catalytic activity/Vol] 18 U/L 10 - 52 U/L [facility] AST [Catalytic activity/Vol] 27 U/L 10 - 39 U/L [facility] Bilirubin [Mass/Vol] 1.1 mg/dL [facility]/dL [facility] Bilirubin.direct [Mass/Vol] 0.3 mg/dL High NINF - 0.3 mg/dL [facility] Protein [Mass/Vol] 6.8 g/dL 6.4 - 8.3 g/dL [facility] MAGNESIUMon 08-29-2023 Interpretation and review of laboratory results Normal [facility] Magnesium [Mass/Vol] 1.7 mg/dL 1.6 - 2 .6 mg/dL [facility] No Panel Informationon 08-29 Interpretation and review of laboratory results Abnormal [facility] PT,INR,PTTon 08-29-2023 aPTT Coag (PPP) [Time] 29.3 s [facility] INR Coag (Bld) [Relative time] 1.1 {INR} 0.9 - 1.[address] [facility] Interpretation and review of laboratory results Normal [facility] PT Coag (PPP) [Time] 13.[address] [facility] Port[facility] XR Chest Viewson RADIOLOGY RADIOLOGY [facility] Portable XR Chest ViewsOrder ed By: Gerald Baer on 08-29-[address] [facility] Work Phone: TACROLIMUS LEVEL, TROUGH (MI E DRUG LEVEL)on 08-29-2023 Interpretation and review of laboratory results Normal [facility] Tacrolimus (Bld) [Mass/Vol] 8.9 ng/mL [facility] TACROLIMUS LEVEL, TROUGH (MI E DRUG LEVEL)Ordered By: Roxanne Louie on 08-29-2023 Interpretation and review of laboratory results Normal [facility] Tacrolimus (Bld) [Mass/Vol] 8.7 ng/mL [facility] URINALYSIS REFLEX TO CULTURE PERFORMABLEOrdered By: Shaji Kelly on 08-29-2023 Appearance (U) Clear Clear [facility] Bacteria LM Ql (Urine sed) ABSENT ABSENT [facility] Calcium Oxalate Crystals PRESENT [facility] Color (U) Yellow Yellow [facility] Epithelial cells.squamous LM Ql (Urine sed) 0-2/hpf 0-2/hpf, 3-5/hpf = 1+ [facility] Glucose Test strip (U) [Mass/Vol] Negative Negative [facility] Interpretation and review of laboratory results Abnormal [facility] Ketones (U) [Mass/Vol] Negative Negative [facility] Leukocyte esterase Test strip Ql (U) Negative Negative [facility] Nitrite Ql (U) Negative Negative [facility] pH (U) 6.0 [pH] 5.0 - 7.0 [facility] Protein (U) [Mass/Vol] Negative Negative [facility] RBC (U) [#/Vol] Trace Abnormal Negative U [facility] RBC LM.HPF (Urine sed) [#/Area] 3-[address] [facility] Specific gravity (U) [Rel density] 1.015 1.001 - 1.[address] [facility] Urobilinogen (U) [Mass/Vol] 1.0 E.U./dL 0.2 E.U/dL, 1.0 E.U/dL [facility] WBC LM.HPF (Urine sed) [#/Area] 0 - 5 [facility] US for transplanted kidney l imitedon 08-29-2023 RADIOLOGY [address] [facility] Radiology Study observation (narrative) [facility] US for transplanted kidney l imitedOrdered By: Romana Matias on 08-29-[address] [facility] Work Phone: CBC AND ELECTRONIC DIFFon Basophils (Bld) [#/Vol] K/uL 0.00 - 0.09 K/uL [facility] Basophils/100 WBC (Bld) 0.6 % [facility] Differential cell count method Nom (Bld) Electronic Differential [facility] Eosinophils (Bld) [#/Vol] 0.10 10*3/uL 0.00 - 0.48 K/uL [facility] Eosinophils/100 WBC (Bld) 2.1 % [facility] Erythrocyte distribution width (RBC) [Ratio] 13.4 % 10.9 - 14.3 % [facility] Hematocrit (Bld) [Volume fraction] 37.9 % Low 39.6 - 48.8 % [facility] Hemoglobin (Bld) [Mass/Vol] 12.4 g/dL Low 13.4 - 16.8 g/dL [facility] Immature granulocytes (Bld) [#/Vol] K/uL NINF - 0.07 K/uL [facility] Immature granulocytes/100 WBC (Bld) 0.6 % [facility] Interpretation and review of laboratory results Abnormal [facility] Lymphocytes (Bld) [#/Vol] 1.76 10*3/uL 0.83 - 3.57 K/uL [facility] Lymphocytes/100 WBC (Bld) 37.1 % [facility] MCH (RBC) [Entitic mass] 27.8 pg 26.1 - 33.[address] [facility] MCHC (RBC) [Mass/Vol] 32.7 g/dL 31.9 - 36.5 g/dL [facility] MCV (RBC) [Entitic vol] 85.0 fL 79.0 - 94.[address] [facility] Monocytes (Bld) [#/Vol] 0.66 10*3/uL 0.24 - 0.93 K/uL [facility] Monocytes/100 WBC (Bld) 13.9 % [facility] Neutrophils (Bld) [#/Vol] 2.16 10*3/uL 1.57 - 6.19 K/uL [facility] Nucleated RBC/100 WBC (Bld) [Ratio] 0.0 % [facility] Platelet mean volume (Bld) [Entitic vol] 9.3 fL 8.7 - 12.[address] [facility] Platelets (Bld) [#/Vol] 262 10*3/uL 146 - 337 K/uL [facility] RBC (Bld) [#/Vol] 4.46 10*6/uL [facility] Segmented neutrophils/100 WBC (Bld) 45.7 % [facility] WBC (Bld) [#/Vol] 4.74 10*3/uL 3.73 - 10. 10 K/uL [facility] CHEM 6 (LYTES, BUN CREA)on 0 08-28-2023 Anion gap [Moles/Vol] 13 mmol/L 7 - 17 mmol/L [facility] Chloride [Moles/Vol] 103 mmol/L 98 - 10 8 mmol/L [facility] CO2 [Moles/Vol] 22 mmol/L 21 - 31 mmol/L [facility] Creatinine [Mass/Vol] 1.62 mg/dL High 0.70 - 1.30 mg/dL [facility] eGFR, CKD-EPI, Male 52 Low - PINF [facility] Interpretation and review of laboratory results Abnormal [facility] Potassium [Moles/Vol] 4.3 mmol/L 3.5 - 5.0 mmol/L [facility] Sodium [Moles/Vol] 134 mmol/L Low 135 - 145 mmol/L [facility] Urea nitrogen [Mass/Vol] 22 mg/dL 7 - 25 mg/dL [facility] Urea nitrogen/Creatinine [Mass ratio] 14 mg/mg [facility] Chest Viewson Radiology Study observation (narrative) [facility] Respiratory virus DNA+RNA NA A+probe Nom (Unsp spec)Ordered By: Dayami Harris on 08-28-2023 Adenovirus DNA ESTELITA+probe Nom (Unsp spec) Not detected Not Detected [facility] B. parapertussis DNA ESTELITA+probe Ql (Unsp spec) Not detected Not Detected [facility] B. pertussis DNA ESTELITA+probe Ql (Unsp spec) Not detected Not Detected [facility] C. pneumoniae DNA ESTELITA+probe Ql (Unsp spec) Not detected Not Detected [facility] FLUAV RNA ESTELITA+probe Ql (Unsp spec) Not detected Not Detected [facility] FLUBV RNA ESTELITA+probe Ql (Unsp spec) Not detected Not Detected [facility] HCoV 229E RNA ESTELITA+non-probe Ql (Nph) Not detected Not Detected [facility] HCoV HKU1 RNA ESTELITA+non-probe Ql (Nph) Not detected Not Detected [facility] HCoV NL63 RNA ESTELITA+non-probe Ql (Nph) Not detected Not Detected [facility] HCoV OC43 RNA ESTELITA+non-probe Ql (Nph) Not detected Not Detected [facility] [facility] A RNA ESTELITA+probe Ql (Unsp spec) Not detected Not Detected [facility] Interpretation and review of laboratory results Normal [facility] M. pneumoniae DNA ESTELITA+probe Ql (Unsp spec) Not detected Not Detected [facility] Parainfluenza virus 1 RNA ESTELITA+probe Ql (Unsp spec) Not detected Not Detected [facility] Parainfluenza virus 2 RNA ESTELITA+probe Ql (Unsp spec) Not detected Not Detected [facility] Parainfluenza virus 3 RNA ESTELITA+probe Ql (Unsp spec) Not detected Not Detected [facility] Parainfluenza virus 4 RNA ESTELITA+probe Ql (Unsp spec) Not detected Not Detected [facility] Rhinovirus+Enterovirus RNA ESTELITA+probe Ql (Unsp spec) Not detected Not Detected [facility] RSV RNA ESTELTIA+probe Ql (Unsp spec) Not detected Not Detected [facility] SARS-CoV-2 (COVID-19) RNA ESTELITA+probe Ql (Unsp spec) Not detected NOT DETECTED [facility] ALBUMINon 04-28-2023 Albumin [Mass/Vol] 4.0 g/dL Normal 3.4-5.0 [facility] Comment on above: Performed By: #### C MP #### [facility] [address] [place] [address] Dr. Dwight Waters ALKALINE PHOSPHAon ALP [Catalytic activity/Vol] 106 U/L Normal 46-116 [facility] Comment on above: Performed By: #### F [id number] #### [facility] [address], [place] [address] Dr. Dwight Waters BILIRUBIN CONJUGATED (DIRECT )on 04-28-2023 BILI, CONJUGATED 0.3 mg/dL Critically high 0.0-0.2 [facility] Comment on above: Performed By: #### C MP #### [facility] [address] [place] [address] Dr. Dwight Waters BILIRUBIN TOTALon 04-28-2023 Bilirubin [Mass/Vol] 1.4 mg/dL Critically high 0.2-1.0 [facility] Comment on above: Performed By: #### C MP #### [facility] [address] [place] [address] Dr. Dwight Waters BUNon 04-28-2023 Urea nitrogen [Mass/Vol] 12.0 mg/dL Normal 7.0-18.0 [facility] Comment on above: Performed By: #### U RTPCR #### [facility] [address] [place] [address] Dr. Dwight Waters CALCIUMon 04-28-2023 Calcium [Mass/Vol] 9.3 mg/dL Normal 8.5-10.1 [facility] Comment on above: Performed By: #### U RTPCR #### [facility] [address] [place] [address] Dr. Dwight Waters CBC AUTO DIFFon 04-28-2023 BASO # 0.1 103/ul Normal 0.0-0.1 [facility] Comment on above: Performed By: #### C BC #### [facility] [address] [place] [address] Dr. Dwight Waters Basophils/100 WBC (Bld) 0.9 % Normal 0.2-2.0 [facility] Comment on above: Performed By: #### C BC #### [facility] [address] [place] [address] Dr. Dwight Waters EO # 0.2 103/ul Normal 0.0-0.7 [facility] Comment on above: Performed By: #### C BC #### [facility] [address] [place] [address] Dr. Dwight Waters Eosinophils/100 WBC (Bld) 3.8 % Normal 0.9-7.0 [facility] Comment on above: Performed By: #### C BC #### [facility] [address] [place] [address] Dr. Dwight Waters Erythrocyte distribution width (RBC) [Ratio] 12.5 % Normal 11.0-15.0 [facility] Comment on above: Performed By: #### C BC #### [facility] [address] [place] [address] Dr. Dwight Waters Hematocrit (Bld) [Volume fraction] 49.8 % Normal 42.0-54.0 [facility] Comment on above: Performed By: #### C BC #### [facility] [address] [place] [address] Dr. Dwight Waters Hemoglobin (Bld) [Mass/Vol] 16.4 g/dL Normal 14.0-18.0 [facility] Comment on above: Performed By: #### C BC #### [facility] [address] [place] [address] Dr. Dwight Waters IG # 0.01 10e3/ul Normal 0.00-0.03 [facility] Comment on above: Performed By: #### C BC #### [facility] [address] [place] [address] Dr. Dwight Waters IG % 0.2 % Normal 0.0-0.5 [facility] Comment on above: Performed By: #### C BC #### [facility] [address] [place] [address] Dr. Dwight Waters LYMPH # 2.1 103/ul Normal 1.2-3.8 [facility] Comment on above: Performed By: #### C BC #### [facility] [address] [place] [address] Dr. Dwight Waters Lymphocytes/100 WBC (Bld) 39.1 % Normal 20.5-60.0 [facility] Comment on above: Performed By: #### C BC #### [facility] [address] [place] [address] Dr. Dwight Waters MANUAL DIFF REQ NO Normal [facility] Comment on above: Performed By: #### C BC #### [facility] [address] [place] [address] Dr. Dwight Waters MCH (RBC) [Entitic mass] 28.6 pg Normal 25.9-34.0 [facility] Comment on above: Performed By: #### C BC #### [facility] [address] [place] [address] [address] Dwight Waters MCHC (RBC) [Mass/Vol] 32.9 g/dL Normal 29.9-35.2 [facility] Comment on above: Performed By: #### C BC #### [facility] [address] [place] [address] Dr. Dwight Waters MCV (RBC) [Entitic vol] 86.9 fL Normal 80.0-94.0 [facility] Comment on above: Performed By: #### C BC #### [facility] [address] [place] [address] Dr. Dwight Waters MONO # 0.6 103/ul Normal 0.3-0.8 [facility] Comment on above: Performed By: #### C BC #### [facility] [address] [place] [address] Dr. Dwight Waters Monocytes/100 WBC (Bld) 10.6 % Normal 1.7-12.0 [facility] Comment on above: Performed By: #### C BC #### [facility] [address] [place] [address] Dr. Dwight Waters NEUT # 2.5 103/ul Normal 1.4-6.5 [facility] Comment on above: Performed By: #### C BC #### [facility] [address] [place] [address] Dr. Dwight Waters Neutrophils/100 WBC (Bld) 45.4 % Normal 43.0-75.0 [facility] Comment on above: Performed By: #### C BC #### [facility] [address] [place] [address] Dr. Dwight Waters Platelet mean volume (Bld) [Entitic vol] 9.3 fL Critically low 9.5-13.5 [facility] Comment on above: Performed By: #### C BC #### [facility] [address] [place] [address] Dr. Dwight Waters PLT 248 103/ul Normal 150-450 [facility] Comment on above: Performed By: #### C BC #### [facility] [address] [place] [address] Dr. Dwight Waters RBC 5.73 106/ul Normal 4.70-6.10 [facility] Comment on above: Performed By: #### C BC #### [facility] [address] [place] [address] Dr. Dwight Waters WBC 5.5 103/ul Normal 4.0-11.0 [facility] Comment on above: Performed By: #### C BC #### [facility] [address] [place] [address] Dr. Dwight Waters CHLORIDEon 04-28-2023 Chloride [Moles/Vol] 107 mmol/L Normal 98-107 [facility] Comment on above: Performed By: #### U RTPCR #### [facility] [address] [place] [address] Dr. Dwight Waters CO2on 04-28-2023 CO2 [Moles/Vol] 28.9 mmol/L Normal 21.0-32.0 [facility] Comment on above: Performed By: #### U RTPCR #### [facility] [address] [place] [address] Dr. Dwight Waters CREATININEon 04-28-2023 Creatinine [Mass/Vol] 1.17 mg/dL Normal 0.70-1.30 [facility] Comment on above: Performed By: #### U RTPCR #### [facility] [address] [place] [address] Dr. Dwight Waters EGFR-AF [place] >60 Normal >=60 [facility] Comment on above: Performed By: #### U RTPCR #### [facility] [address] [place] [address] Dr. Dwight Waters EGFR-NON AF [place] >60 Normal >=60 [facility] Comment on above: Performed By: #### U RTPCR #### [facility] [address] [place] [address] Dr. Dwight Waters GGTon 04-28-2023 Gamma glutamyl transferase [Catalytic activity/Vol] 27 U/L Normal 15-85 [facility] Comment on above: Performed By: #### U RTPCR #### [facility] [address] [place] [address] Dr. Dwight Waters GLUCOSE BLOODon 04-28-2023 Glucose [Mass/Vol] 110 mg/dL Critically high 74-106 [facility] Comment on above: Performed By: #### U RTPCR #### [facility] [address] [place] [address] Dr. Dwight Waters MAGNESIUMon 04-28-2023 Magnesium [Mass/Vol] 1.7 mg/dL Critically low 1.8-2.4 [facility] Comment on above: Performed By: #### U RTPCR #### [facility] [address] [place] [address] Dr. Dwight Waters NAon 04-28-2023 Sodium [Moles/Vol] 144 mmol/L Normal 136-145 [facility] Comment on above: Performed By: #### U RTPCR #### [facility] [address] [place] [address] Dr. Dwight Waters PHOSPHORUSon 04-28-2023 Phosphate [Mass/Vol] 3.2 mg/dL Normal 2.6-4.7 [facility] Comment on above: Performed By: #### U RTPCR #### [facility] [address] [place] [address] Dr. Dwight Waters POTASSIUMon 04-28-2023 Potassium [Moles/Vol] 4.0 mmol/L Normal 3.5-5.1 [facility] Comment on above: Performed By: #### U RTPCR #### [facility] [address] [place] [address] Dr. Dwight Waters SGOTon 04-28-2023 AST [Catalytic activity/Vol] 25 U/L Normal 15-37 [facility] Comment on above: Performed By: #### C MP #### [facility] [address] [place] [address] Dr. Dwgiht Waters SGPTon 04-28-2023 ALT [Catalytic activity/Vol] 40 U/L Normal 16-63 [facility] Comment on above: Performed By: #### C MP #### [facility] [address] [place] [address] Dr. Dwight Waters URINE T PROTEIN CREAT RATIOo n 04-28-2023 Protein (U) [Mass/Vol] 10.1 mg/dL Normal <=12.0 [facility] Comment on above: Performed By: #### U RTPCR #### [facility] [address] [place] [address] Dr. Dwight Waters UR PROT CREAT RAT 0.14 Normal [facility] Comment on above: Performed By: #### U RTPCR #### [facility] [address] [place] [address] Dr. Dwight Waters URINE CREAT 74.40 mg/dL Normal 20.00-300.00 [facility] Comment on above: Performed By: #### U RTPCR #### [facility] [address] [place] [address] Dr. Dwight Waters BK VIRUS PCR QUANTon 023 BKV DNA QUANT PCR PLASMA Negative Normal Negative [facility] Comment on above: Result Comment: No B K DNA detected. . The linear range of the assay is 22 - 100,000,000 IU/mL. Performed By: #### B KVIRUS #### [facility] [address] [place] [address] Dr. Dwight Waters Log10 BKV DNA Plasma Normal [facility] Comment on above: Performed By: #### B KVIRUS #### [facility] [address] [place] [address] Dr. Dwight Waters FK506 (TACROLIMUS) WHOLE BLO ODon 03-04-2023 Tacrolimus (FK506), Blood 5.9 ng/mL Normal 2.0-20.0 [facility] Comment on above: Result Comment: Trou gh (immediately following transplant) 15.0 . Trough (steady state, 2 weeks or more after transplant): 3.0 - 8.0 . Performed by LC-MS/MS technology. Performed By: #### C MP #### [facility] [address] [place] [address] Dr. Dwight Waters ALBUMINon 03-02-2023 Albumin [Mass/Vol] 3.9 g/dL Normal 3.4-5.0 [facility] Comment on above: Performed By: #### U RTPCR #### [facility] [address] [place] [address] Dr. Dwight Waters ALKALINE PHOSPHAon ALP [Catalytic activity/Vol] 105 U/L Normal 46-116 [facility] Comment on above: Performed By: #### U RTPCR #### [facility] [address] [place] [address] Dr. Dwight Waters BILIRUBIN CONJUGATED (DIRECT )on 03-02-2023 BILI, CONJUGATED 0.2 mg/dL Normal 0.0-0.2 [facility] Comment on above: Performed By: #### U RTPCR #### [facility] [address] [place] [address] Dr. Dwight Waters BILIRUBIN TOTALon 03-02-2023 Bilirubin [Mass/Vol] 0.9 mg/dL Normal 0.2-1.0 [facility] Comment on above: Performed By: #### U RTPCR #### [facility] [address] [place] [address] Dr. Dwight Waters CBC AUTO DIFFon 03-02-2023 BASO # 0.1 103/ul Normal 0.0-0.1 [facility] Comment on above: Performed By: #### C BC #### [facility] [address] [place] [address] Dr. Dwight Waters Basophils/100 WBC (Bld) 0.9 % Normal 0.2-2.0 [facility] Comment on above: Performed By: #### C BC #### [facility] [address] [place] [address] Dr. Dwight Waters EO # 0.2 103/ul Normal 0.0-0.7 [facility] Comment on above: Performed By: #### C BC #### [facility] [address] [place] [address] Dr. Dwight Waters Eosinophils/100 WBC (Bld) 3.5 % Normal 0.9-7.0 [facility] Comment on above: Performed By: #### C BC #### [facility] [address] [place] [address] Dr. Dwight Waters Erythrocyte distribution width (RBC) [Ratio] 12.7 % Normal 11.0-15.0 [facility] Comment on above: Performed By: #### C BC #### [facility] [address] [place] [address] Dr. Dwight Waters Hematocrit (Bld) [Volume fraction] 48.2 % Normal 42.0-54.0 [facility] Comment on above: Performed By: #### C BC #### [facility] [address] [place] [address] Dr. Dwight Waters Hemoglobin (Bld) [Mass/Vol] 15.9 g/dL Normal 14.0-18.0 [facility] Comment on above: Performed By: #### C BC #### [facility] [address] [place] [address] Dr. Dwight Waters IG # 0.01 10e3/ul Normal 0.00-0.03 [facility] Comment on above: Performed By: #### C BC #### [facility] [address] [place] [address] Dr. Dwight Waters IG % 0.2 % Normal 0.0-0.5 [facility] Comment on above: Performed By: #### C BC #### [facility] [address] [place] [address] Dr. Dwight Waters LYMPH # 2.1 103/ul Normal 1.2-3.8 [facility] Comment on above: Performed By: #### C BC #### [facility] [address] [place] [address] Dr. Dwight Waters Lymphocytes/100 WBC (Bld) 37.4 % Normal 20.5-60.0 [facility] Comment on above: Performed By: #### C BC #### [facility] [address] [place] [address] Dr. Dwight Waters MANUAL DIFF REQ NO Normal [facility] Comment on above: Performed By: #### C BC #### [facility] [address] [place] [address] Dr. Dwight Waters MCH (RBC) [Entitic mass] 28.3 pg Normal 25.9-34.0 [facility] Comment on above: Performed By: #### C BC #### [facility] [address] [place] [address] Dr. Dwight Waters MCHC (RBC) [Mass/Vol] 33.0 g/dL Normal 29.9-35.2 [facility] Comment on above: Performed By: #### C BC #### [facility] [address] [place] [address] Dr. Dwight Waters MCV (RBC) [Entitic vol] 85.8 fL Normal 80.0-94.0 [facility] Comment on above: Performed By: #### C BC #### [facility] [address] [place] [address] Dr. Dwight Waters MONO # 0.6 103/ul Normal 0.3-0.8 [facility] Comment on above: Performed By: #### C BC #### [facility] [address] [place] [address] Dr. Dwight Waters Monocytes/100 WBC (Bld) 10.2 % Normal 1.7-12.0 [facility] Comment on above: Performed By: #### C BC #### [facility] [address] [place] [address] Dr. Dwight Waters NEUT # 2.7 103/ul Normal 1.4-6.5 [facility] Comment on above: Performed By: #### C BC #### [facility] [address] [place] [address] Dr. Dwight Waters Neutrophils/100 WBC (Bld) 47.8 % Normal 43.0-75.0 [facility] Comment on above: Performed By: #### C BC #### [facility] [address] [place] [address] Dr. Dwight Waters Platelet mean volume (Bld) [Entitic vol] 9.3 fL Critically low 9.5-13.5 [facility] Comment on above: Performed By: #### C BC #### [facility] [address] [place] [address] Dr. Dwight Waters PLT 241 103/ul Normal 150-450 [facility] Comment on above: Performed By: #### C BC #### [facility] [address] [place] [address] Dr. Dwight Waters RBC 5.62 106/ul Normal 4.70-6.10 [facility] Comment on above: Performed By: #### C BC #### [facility] [address] [place] [address] Dr. Dwight Waters WBC 5.7 103/ul Normal 4.0-11.0 [facility] Comment on above: Performed By: #### C BC #### [facility] [address] [place] [address] Dr. Dwight Waters GGTon 03-02-2023 Gamma glutamyl transferase [Catalytic activity/Vol] 25 U/L Normal 15-85 [facility] Comment on above: Performed By: #### U RTPCR #### [facility] [address] [place] [address] Dr. Dwight Waters MAGNESIUMon 03-02-2023 Magnesium [Mass/Vol] 1.6 mg/dL Critically low 1.8-2.4 [facility] Comment on above: Performed By: #### U RTPCR #### [facility] [address] [place] [address] Dr. Dwight Waters PHOSPHORUSon 03-02-2023 Phosphate [Mass/Vol] 3.6 mg/dL Normal 2.6-4.7 [facility] Comment on above: Performed By: #### U RTPCR #### [facility] [address] [place] [address] Dr. Dwight Waters PROF CHEM 8 (BAS METB)on Anion gap [Moles/Vol] 9.4 mmol/L Normal [facility] Comment on above: Performed By: #### U RTPCR #### [facility] [address] [place] [address] Dr. Dwight Waters Calcium [Mass/Vol] 9.3 mg/dL Normal 8.5-10.1 [facility] Comment on above: Performed By: #### U RTPCR #### [facility] [address] [address] [address] Dwight Waters Chloride [Moles/Vol] 108 mmol/L Critically high 98-107 [facility] Comment on above: Performed By: #### U RTPCR #### [facility] [address] [address] [address] Dwight Waters CO2 [Moles/Vol] 27.2 mmol/L Normal 21.0-32.0 [facility] Comment on above: Performed By: #### U RTPCR #### [facility] [address] [address] [address] Dwight Waters Creatinine [Mass/Vol] 1.12 mg/dL Normal 0.70-1.30 [facility] Comment on above: Performed By: #### U RTPCR #### [facility] [address] [address] [address] Dwight Waters EGFR-AF [place]AN >60 Normal >=60 [facility] Comment on above: Performed By: #### U RTPCR #### [facility] [address] [place] [address] Dr. Dwight Waters EGFR-NON AF [place] >60 Normal >=60 [facility] Comment on above: Performed By: #### U RTPCR #### [facility] [address] [address] [address] Dwight Waters Glucose [Mass/Vol] 113 mg/dL Critically high 74-106 [facility] Comment on above: Performed By: #### U RTPCR #### [facility] [address] [address] [address] Dwight Waters Potassium [Moles/Vol] 3.6 mmol/L Normal 3.5-5.1 [facility] Comment on above: Performed By: #### U RTPCR #### [facility] [address] [address] [address] Dwight Waters Sodium [Moles/Vol] 141 mmol/L Normal 136-145 [facility] Comment on above: Performed By: #### U RTPCR #### [facility] [address] [place] [address] Dr. Dwight Waters Urea nitrogen [Mass/Vol] 14.0 mg/dL Normal 7.0-18.0 [facility] Comment on above: Performed By: #### U RTPCR #### [facility] [address] [place] [address] Dr. Dwight Waters Urea nitrogen/Creatinine [Mass ratio] 12.5 mg/mg Normal [facility] Comment on above: Performed By: #### U RTPCR #### [facility] [address] [place] [address] Dr. Dwight Waters SGOTon 03-02-2023 AST [Catalytic activity/Vol] 20 U/L Normal 15-37 [facility] Comment on above: Performed By: #### U RTPCR #### [facility] [address] [place] [address] Dr. Dwight Waters SGPTon 03-02-2023 ALT [Catalytic activity/Vol] 30 U/L Normal 16-63 [facility] Comment on above: Performed By: #### U RTPCR #### [facility] [address] [place] [address] Dr. Dwight Waters URINE T PROTEIN CREAT RATIOo n 03-02-2023 Protein (U) [Mass/Vol] 10.3 mg/dL Normal <=12.0 [facility] Comment on above: Performed By: #### U RTPCR #### [facility] [address] [place] [address] Dr. Dwight Waters UR PROT CREAT RAT 0.15 Normal [facility] Comment on above: Performed By: #### U RTPCR #### [facility] [address] [place] [address] Dr. Dwight Waters URINE CREAT 68.96 mg/dL Normal 20.00-300.00 [facility] Comment on above: Performed By: #### U RTPCR #### [facility] [address] [place] [address] Dr. Dwight Waters BK VIRUS PCR QUANTon 023 BKV DNA QUANT PCR PLASMA Negative Normal Negative [facility] Comment on above: Result Comment: No B K DNA detected. . The linear range of the assay is 22 - 100,000,000 IU/mL. Performed By: #### C MP #### [facility] [address] [place] [address] Dr. Dwight Waters Log10 BKV DNA Plasma Normal [facility] Comment on above: Performed By: #### C MP #### [facility] [address] [place] [address] Dr. Dwight Waters FK506 (TACROLIMUS) WHOLE BLO ODon 12-31-2022 Tacrolimus (FK506), Blood 5.6 ng/mL Normal 2.0-20.0 [facility] Comment on above: Result Comment: Trou gh (immediately following transplant) 15.0 . Trough (steady state, 2 weeks or more after transplant): 3.0 - 8.0 . Performed by LC-MS/MS technology. Performed By: #### C MP #### [facility] [address] [place] [address] Dr. Dwight Waters ALKALINE PHOSPHAon ALP [Catalytic activity/Vol] 96 U/L Normal 46-116 [facility] Comment on above: Performed By: #### C BC #### [facility] [address] [place] [address] Dr. Dwight Waters BILIRUBIN CONJUGATED (DIRECT )on 12-29-2022 BILI, CONJUGATED 0.3 mg/dL Critically high 0.0-0.2 [facility] Comment on above: Performed By: #### C BC #### [facility] [address] [place] [address] Dr. Dwight Waters BILIRUBIN TOTALon 12-29-2022 Bilirubin [Mass/Vol] 1.1 mg/dL Critically high 0.2-1.0 [facility] Comment on above: Performed By: #### C BC #### [facility] [address] [place] [address] Dr. Dwight Waters CBC AUTO DIFFon 12-29-2022 BASO # 0.1 103/ul Normal 0.0-0.1 [facility] Comment on above: Performed By: #### C MP #### [facility] [address] [place] [address] Dr. Dwight Waters Basophils/100 WBC (Bld) 0.8 % Normal 0.2-2.0 [facility] Comment on above: Performed By: #### C MP #### [facility] [address] [place] [address] Dr. Dwight Waters EO # 0.2 103/ul Normal 0.0-0.7 [facility] Comment on above: Performed By: #### C MP #### [facility] [address] [place] [address] Dr. Dwight Waters Eosinophils/100 WBC (Bld) 3.0 % Normal 0.9-7.0 [facility] Comment on above: Performed By: #### C MP #### [facility] [address] [place] [address] Dr. Dwight Waters Erythrocyte distribution width (RBC) [Ratio] 12.9 % Normal 11.0-15.0 [facility] Comment on above: Performed By: #### C MP #### [facility] [address] [place] [address] Dr. Dwight Waters Hematocrit (Bld) [Volume fraction] 46.9 % Normal 42.0-54.0 [facility] Comment on above: Performed By: #### C MP #### [facility] [address] [place] [address] Dr. Dwight Waters Hemoglobin (Bld) [Mass/Vol] 16.1 g/dL Normal 14.0-18.0 [facility] Comment on above: Performed By: #### C MP #### [facility] [address] [place] [address] Dr. Dwight Waters IG # 0.01 10e3/ul Normal 0.00-0.03 [facility] Comment on above: Performed By: #### C MP #### [facility] [address] [place] [address] Dr. Dwight Waters IG % 0.2 % Normal 0.0-0.5 [facility] Comment on above: Performed By: #### C MP #### [facility] [address] [place] [address] Dr. Dwight Waters LYMPH # 1.8 103/ul Normal 1.2-3.8 [facility] Comment on above: Performed By: #### C MP #### [facility] [address] [place] [address] Dr. Dwight Waters Lymphocytes/100 WBC (Bld) 27.9 % Normal 20.5-60.0 [facility] Comment on above: Performed By: #### C MP #### [facility] [address] [place] [address] Dr. Dwight Waters MANUAL DIFF REQ NO Normal [facility] Comment on above: Performed By: #### C MP #### [facility] [address] [place] [address] Dr. Dwight Waters MCH (RBC) [Entitic mass] 28.5 pg Normal 25.9-34.0 [facility] Comment on above: Performed By: #### C MP #### [facility] [address] [place] [address] Dr. Dwight Waters MCHC (RBC) [Mass/Vol] 34.3 g/dL Normal 29.9-35.2 [facility] Comment on above: Performed By: #### C MP #### [facility] [address] [place] [address] Dr. Dwight Waters MCV (RBC) [Entitic vol] 83.2 fL Normal 80.0-94.0 [facility] Comment on above: Performed By: #### C MP #### [facility] [address] [place] [address] Dr. Dwight Waters MONO # 0.5 103/ul Normal 0.3-0.8 [facility] Comment on above: Performed By: #### C MP #### [facility] [address] [place] [address] Dr. Dwight Waters Monocytes/100 WBC (Bld) 8.1 % Normal 1.7-12.0 [facility] Comment on above: Performed By: #### C MP #### [facility] [address] [place] [address] Dr. Dwight Waters NEUT # 3.8 103/ul Normal 1.4-6.5 [facility] Comment on above: Performed By: #### C MP #### [facility] [address] [address] [address] Dwight Waters Neutrophils/100 WBC (Bld) 60.0 % Normal 43.0-75.0 [facility] Comment on above: Performed By: #### C MP #### [facility] [address] [address] [address] Dwight Waters Platelet mean volume (Bld) [Entitic vol] 9.2 fL Critically low 9.5-13.5 [facility] Comment on above: Performed By: #### C MP #### [facility] [address] [place] [address] Dr. Dwight Waters PLT 225 103/ul Normal 150-450 [facility] Comment on above: Performed By: #### C MP #### [facility] [address] [place] [address] Dr. Dwight Waters RBC 5.64 106/ul Normal 4.70-6.10 [facility] Comment on above: Performed By: #### C MP #### [facility] [address] [address] [address] Dwight Waters WBC 6.3 103/ul Normal 4.0-11.0 [facility] Comment on above: Performed By: #### C MP #### [facility] [address] [place] [address] Dr. Dwight Waters GGTon 12-29-2022 Gamma glutamyl transferase [Catalytic activity/Vol] 24 U/L Normal 15-85 [facility] Comment on above: Performed By: #### C MP #### [facility] [address] [place] [address] Dr. Dwight Waters LIPID PROFILEon 12-29-2022 CHOL-HDL RATIO NORM SEE BELOW Normal [facility] Comment on above: Result Comment: 3.3 - 4.4 LOW RISK 4.4 - 7.1 AVERAGE RISK 7.1 - 11.0 MODERATE RISK >11.0 HIGH RISK Performed By: #### U RTPCR #### [facility] [address] [place] [address] Dr. Dwight Waters Cholesterol [Mass/Vol] 87 mg/dL Normal <=200 [facility] Comment on above: Performed By: #### U RTPCR #### [facility] [address] [address] [address] Dwight Waters Cholesterol in HDL [Mass/Vol] 44 mg/dL Normal 40-60 [facility] Comment on above: Performed By: #### U RTPCR #### [facility] [address] [address] [address] Dwight Waters Cholesterol in LDL [Mass/Vol] 33.0 mg/dL Normal [facility] Comment on above: Performed By: #### U RTPCR #### [facility] [address] [address] [address] Dwight Waters Cholesterol.total/Chol esterol in HDL [Mass ratio] 2.0 {ratio} Normal [facility] Comment on above: Performed By: #### U RTPCR #### [facility] [address] [address] [address] Dwight Waters HDL NORMAL > or = 60 mg/dl - LO W CARDIOVASCULAR RISK <40 mg/dl - HIGH CARDIOVASCULAR RISK Normal [facility] Comment on above: Performed By: #### U RTPCR #### [facility] [address] [address] [address] Dwight Waters LDL CALC NORMAL SEE BELOW Normal [facility] Comment on above: Result Comment: <100 mg/dl OPTIMAL 100 - 129 mg/dl NEAR OR ABOVE OPTIMAL 130 - 159 mg/dl BORDERLINE HIGH 160 - 189 mg/dl HIGH >190 mg/dl VERY HIGH Performed By: #### U RTPCR #### [facility] [address] [address] [address] Dwight Waters Triglyceride [Mass/Vol] 50 mg/dL Normal <=150 [facility] Comment on above: Performed By: #### U RTPCR #### [facility] [address] [address] [address] Dwight Waters VLDL CALC 10.0 mg/dL Normal [facility] Comment on above: Performed By: #### U RTPCR #### [facility] [address] [address] [address] Dwight Waters MAGNESIUMon 12-29-2022 Magnesium [Mass/Vol] 1.6 mg/dL Critically low 1.8-2.4 [facility] Comment on above: Performed By: #### C BC #### [facility] [address] [address] [address] Dwight Waters RENAL FUNCTION PANELon 12-29 Albumin [Mass/Vol] 3.9 g/dL Normal 3.4-5.0 [facility] Comment on above: Performed By: #### C BC #### [facility] [address] [address] [address] Dwight Waters Calcium [Mass/Vol] 9.2 mg/dL Normal 8.5-10.1 [facility] Comment on above: Performed By: #### C BC #### [facility] [address] [place] [address] Dr. Dwight Waters Chloride [Moles/Vol] 109 mmol/L Critically high 98-107 [facility] Comment on above: Performed By: #### C BC #### [facility] [address] [place] [address] Dr. Dwight Waters CO2 [Moles/Vol] 27.0 mmol/L Normal 21.0-32.0 [facility] Comment on above: Performed By: #### C BC #### [facility] [address] [place] [address] Dr. Dwight Waters Creatinine [Mass/Vol] 1.02 mg/dL Normal 0.70-1.30 [facility] Comment on above: Performed By: #### C BC #### [facility] [address] [place] [address] Dr. Dwight Waters EGFR-AF [place] >60 Normal >=60 [facility] Comment on above: Performed By: #### C BC #### [facility] [address] [place] [address] Dr. Dwight Waters EGFR-NON AF [place] >60 Normal >=60 [facility] Comment on above: Performed By: #### C BC #### [facility] [address] [address] [address] Dwight Waters Glucose [Mass/Vol] 117 mg/dL Critically high 74-106 [facility] Comment on above: Performed By: #### C BC #### [facility] [address] [address] [address] Dwight Waters Phosphate [Mass/Vol] 3.2 mg/dL Normal 2.6-4.7 [facility] Comment on above: Performed By: #### C BC #### [facility] [address] [address] [address] Dwihgt Waters Potassium [Moles/Vol] 4.1 mmol/L Normal 3.5-5.1 [facility] Comment on above: Performed By: #### C BC #### [facility] [address] [place] [address] Dr. Dwight Waters Sodium [Moles/Vol] 144 mmol/L Normal 136-145 [facility] Comment on above: Performed By: #### C BC #### [facility] [address] [address] [address] Dwight Waters Urea nitrogen [Mass/Vol] 13.0 mg/dL Normal 7.0-18.0 [facility] Comment on above: Performed By: #### C BC #### [facility] [address] [place] [address] Dr. Dwight Waters SGOTon 12-29-2022 AST [Catalytic activity/Vol] 21 U/L Normal 15-37 [facility] Comment on above: Performed By: #### C BC #### [facility] [address] [place] [address] Dr. Dwight Waters SGPTon 12-29-2022 ALT [Catalytic activity/Vol] 32 U/L Normal 16-63 [facility] Comment on above: Performed By: #### C BC #### [facility] [address] [place] [address] Dr. Dwight Waters URINE T PROTEIN CREAT RATIOo n 12-29-2022 Protein (U) [Mass/Vol] 14.3 mg/dL Critically high <=12.0 [facility] Comment on above: Performed By: #### U RTPCR #### [facility] [address] [address] [address] Dwight Waters UR PROT CREAT RAT 0.17 Normal [facility] Comment on above: Performed By: #### U RTPCR #### [facility] [address] [address] [address] Dwight Waters URINE CREAT 86.58 mg/dL Normal 20.00-300.00 [facility] Comment on above: Performed By: #### U RTPCR #### [facility] [address] [address] [address] Dwight Waters FK506 (TACROLIMUS) WHOLE BLO ODon 11-06-2022 Tacrolimus (FK506), Blood 4.9 ng/mL Normal 2.0-20.0 [facility] Comment on above: Result Comment: Trou gh (immediately following transplant) 15.0 . Trough (steady state, 2 weeks or more after transplant): 3.0 - 8.0 . Performed by LC-MS/MS technology. Performed By: #### U RTPCR #### [facility] [address] [place] [address] Dr. Dwight Waters ALKALINE PHOSPHAon ALP [Catalytic activity/Vol] 86 U/L Normal 46-116 [facility] Comment on above: Performed By: #### U RTPCR #### [facility] [address] [place] [address] Dr. Dwight Waters BILIRUBIN CONJUGATED (DIRECT )on 11-04-2022 BILI, CONJUGATED 0.2 mg/dL Normal 0.0-0.2 [facility] Comment on above: Performed By: #### U RTPCR #### [facility] [address] [place] [address] Dr. Dwight Waters BILIRUBIN TOTALon 11-04-2022 Bilirubin [Mass/Vol] 0.8 mg/dL Normal 0.2-1.0 [facility] Comment on above: Performed By: #### U RTPCR #### [facility] [address] [place] [address] Dr. Dwight Waters CBC AUTO DIFFon 11-04-2022 BASO # 0.1 103/ul Normal 0.0-0.1 [facility] Comment on above: Performed By: #### U RTPCR #### [facility] [address] [address] [address] Dwight Waters Basophils/100 WBC (Bld) 0.9 % Normal 0.2-2.0 [facility] Comment on above: Performed By: #### U RTPCR #### [facility] [address] [address] [address] Dwight Waters EO # 0.2 103/ul Normal 0.0-0.7 [facility] Comment on above: Performed By: #### U RTPCR #### [facility] [address] [place] [address] Dr. Dwight Waters Eosinophils/100 WBC (Bld) 3.7 % Normal 0.9-7.0 [facility] Comment on above: Performed By: #### U RTPCR #### [facility] [address] [place] [address] Dr. Dwight Waters Erythrocyte distribution width (RBC) [Ratio] 12.9 % Normal 11.0-15.0 [facility] Comment on above: Performed By: #### U RTPCR #### [facility] [address] [place] [address] Dr. Dwight Waters Hematocrit (Bld) [Volume fraction] 48.3 % Normal 42.0-54.0 [facility] Comment on above: Performed By: #### U RTPCR #### [facility] [address] [place] [address] Dr. Dwight Waters Hemoglobin (Bld) [Mass/Vol] 15.6 g/dL Normal 14.0-18.0 [facility] Comment on above: Performed By: #### U RTPCR #### [facility] [address] [place] [address] Dr. Dwight Waters IG # 0.01 10e3/ul Normal 0.00-0.03 [facility] Comment on above: Performed By: #### U RTPCR #### [facility] [address] [place] [address] Dr. Dwight Waters IG % 0.2 % Normal 0.0-0.5 [facility] Comment on above: Performed By: #### U RTPCR #### [facility] [address] [place] [address] Dr. Dwight Waters LYMPH # 1.9 103/ul Normal 1.2-3.8 [facility] Comment on above: Performed By: #### U RTPCR #### [facility] [address] [place] [address] Dr. Dwight Waters Lymphocytes/100 WBC (Bld) 33.0 % Normal 20.5-60.0 [facility] Comment on above: Performed By: #### U RTPCR #### [facility] [address] [place] [address] Dr. Dwight Waters MANUAL DIFF REQ NO Normal [facility] Comment on above: Performed By: #### U RTPCR #### [facility] [address] [place] [address] Dr. Dwight Waters MCH (RBC) [Entitic mass] 27.6 pg Normal 25.9-34.0 [facility] Comment on above: Performed By: #### U RTPCR #### [facility] [address] [place] [address] Dr. Dwight Waters MCHC (RBC) [Mass/Vol] 32.3 g/dL Normal 29.9-35.2 [facility] Comment on above: Performed By: #### U RTPCR #### [facility] [address] [place] [address] Dr. Dwight Waters MCV (RBC) [Entitic vol] 85.5 fL Normal 80.0-94.0 [facility] Comment on above: Performed By: #### U RTPCR #### [facility] [address] [place] [address] Dr. Dwight Waters MONO # 0.5 103/ul Normal 0.3-0.8 [facility] Comment on above: Performed By: #### U RTPCR #### [facility] [address] [place] [address] Dr. Dwight Waters Monocytes/100 WBC (Bld) 8.8 % Normal 1.7-12.0 [facility] Comment on above: Performed By: #### U RTPCR #### [facility] [address] [place] [address] Dr. Dwight Waters NEUT # 3.1 103/ul Normal 1.4-6.5 [facility] Comment on above: Performed By: #### U RTPCR #### [facility] [address] [address] [address] Dwight Waters Neutrophils/100 WBC (Bld) 53.4 % Normal 43.0-75.0 [facility] Comment on above: Performed By: #### U RTPCR #### [facility] [address] [place] [address] Dr. Dwight Waters Platelet mean volume (Bld) [Entitic vol] 9.2 fL Critically low 9.5-13.5 [facility] Comment on above: Performed By: #### U RTPCR #### [facility] [address] [place] [address] Dr. Dwight Waters PLT 255 103/ul Normal 150-450 [facility] Comment on above: Performed By: #### U RTPCR #### [facility] [address] [place] [address] Dr. Dwight Waters RBC 5.65 106/ul Normal 4.70-6.10 [facility] Comment on above: Performed By: #### U RTPCR #### [facility] [address] [place] [address] Dr. Dwight Waters WBC 5.7 103/ul Normal 4.0-11.0 [facility] Comment on above: Performed By: #### U RTPCR #### [facility] [address] [place] [address] Dr. Dwight Waters GGTon 11-04-2022 Gamma glutamyl transferase [Catalytic activity/Vol] 22 U/L Normal 15-85 [facility] Comment on above: Performed By: #### U RTPCR #### [facility] [address] [place] [address] Dr. Dwight Waters MAGNESIUMon 11-04-2022 Magnesium [Mass/Vol] 1.8 mg/dL Normal 1.8-2.4 [facility] Comment on above: Performed By: #### U RTPCR #### [facility] [address] [address] [address] Dwight Waters RENAL FUNCTION PANELon 11-04 Albumin [Mass/Vol] 3.8 g/dL Normal 3.4-5.0 [facility] Comment on above: Performed By: #### U RTPCR #### [facility] [address] [address] [address] Dwight Waters Calcium [Mass/Vol] 9.3 mg/dL Normal 8.5-10.1 [facility] Comment on above: Performed By: #### U RTPCR #### [facility] [address] [place] [address] Dr. Dwight Waters Chloride [Moles/Vol] 107 mmol/L Normal 98-107 [facility] Comment on above: Performed By: #### U RTPCR #### [facility] [address] [address] [address] Dwight Waters CO2 [Moles/Vol] 29.2 mmol/L Normal 21.0-32.0 [facility] Comment on above: Performed By: #### U RTPCR #### [facility] [address] [place] [address] Dr. Dwight Waters Creatinine [Mass/Vol] 1.07 mg/dL Normal 0.70-1.30 [facility] Comment on above: Performed By: #### U RTPCR #### [facility] [address] [place] [address] Dr. Dwight Waters EGFR-AF [place]TH [place]OREAN >60 Normal >=60 [facility] Comment on above: Performed By: #### U RTPCR #### [facility] [address] [address] [address] Dwight Waters EGFR-NON AF [place] >60 Normal >=60 [facility] Comment on above: Performed By: #### U RTPCR #### [facility] [address] [address] [address] Dwight Waters Glucose [Mass/Vol] 106 mg/dL Normal 74-106 [facility] Comment on above: Performed By: #### U RTPCR #### [facility] [address] [place] [address] Dr. Dwight Waters Phosphate [Mass/Vol] 2.8 mg/dL Normal 2.6-4.7 [facility] Comment on above: Performed By: #### U RTPCR #### [facility] [address] [place] [address] Dr. Dwight Waters Potassium [Moles/Vol] 4.1 mmol/L Normal 3.5-5.1 [facility] Comment on above: Performed By: #### U RTPCR #### [facility] [address] [place] [address] Dr. Dwight Waters Sodium [Moles/Vol] 143 mmol/L Normal 136-145 [facility] Comment on above: Performed By: #### U RTPCR #### [facility] [address] [place] [address] Dr. Dwight Waters Urea nitrogen [Mass/Vol] 12.0 mg/dL Normal 7.0-18.0 [facility] Comment on above: Performed By: #### U RTPCR #### [facility] [address] [place] [address] Dr. Dwight Waters SGOTon 11-04-2022 AST [Catalytic activity/Vol] 19 U/L Normal 15-37 [facility] Comment on above: Performed By: #### U RTPCR #### [facility] [address] [place] [address] Dr. Dwight Waters SGPTon 11-04-2022 ALT [Catalytic activity/Vol] 28 U/L Normal 16-63 [facility] Comment on above: Performed By: #### U RTPCR #### [facility] [address] [place] [address] Dr. Dwight Waters URINE T PROTEIN CREAT RATIOo n 11-04-2022 Protein (U) [Mass/Vol] 10.7 mg/dL Normal <=12.0 [facility] Comment on above: Performed By: #### U RTPCR #### [facility] [address] [address] [address] Dwight Waters UR PROT CREAT RAT 0.13 Normal [facility] Comment on above: Performed By: #### U RTPCR #### [facility] [address] [address] [address] Dwight Waters URINE CREAT 84.50 mg/dL Normal 20.00-300.00 [facility] Comment on above: Performed By: #### U RTPCR #### [facility] [address] [address] [address] Dwight Waters FK506 (TACROLIMUS) WHOLE BLO ODon 09-18-2022 Tacrolimus (FK506), Blood 4.6 ng/mL Normal 2.0-20.0 [facility] Comment on above: Result Comment: Trou gh (immediately following transplant) 15.0 . Trough (steady state, 2 weeks or more after transplant): 3.0 - 8.0 . Performed by LC-MS/MS technology. Performed By: #### U RTPCR #### [facility] [address] [place] [address] Dr. Dwight Waters BK VIRUS PCR QUANTon 022 BKV DNA QUANT PCR PLASMA Negative Normal Negative [facility] Comment on above: Result Comment: No B K DNA detected. . The linear range of the assay is 22 - 100,000,000 IU/mL. Performed By: #### U RTPCR #### [facility] [address] [address] [address] Dwight Waters Log10 BKV DNA Plasma Normal [facility] Comment on above: Performed By: #### U RTPCR #### [facility] [address] [address] [address] Dwight Waters ALKALINE PHOSPHAon ALP [Catalytic activity/Vol] 92 U/L Normal 46-116 [facility] Comment on above: Performed By: #### U RTPCR #### [facility] [address] [place] [address] Dr. Dwight Waters BILIRUBIN CONJUGATED (DIRECT )on 09-15-2022 BILI, CONJUGATED 0.3 mg/dL Critically high 0.0-0.2 [facility] Comment on above: Performed By: #### U RTPCR #### [facility] [address] [place] [address] Dr. Dwight Waters BILIRUBIN TOTALon 09-15-2022 Bilirubin [Mass/Vol] 1.1 mg/dL Critically high 0.2-1.0 [facility] Comment on above: Performed By: #### U RTPCR #### [facility] [address] [place] [address] Dr. Dwight Waters CBC AUTO DIFFon 09-15-2022 BASO # 0.1 103/ul Normal 0.0-0.1 [facility] Comment on above: Performed By: #### C BC #### [facility] [address] [place] [address] Dr. Dwight Waters Basophils/100 WBC (Bld) 0.8 % Normal 0.2-2.0 [facility] Comment on above: Performed By: #### C BC #### [facility] [address] [place] [address] Dr. Dwight Waters EO # 0.2 103/ul Normal 0.0-0.7 [facility] Comment on above: Performed By: #### C BC #### [facility] [address] [place] [address] Dr. Dwight Waters Eosinophils/100 WBC (Bld) 3.5 % Normal 0.9-7.0 [facility] Comment on above: Performed By: #### C BC #### [facility] [address] [place] [address] Dr. Dwight Waters Erythrocyte distribution width (RBC) [Ratio] 13.0 % Normal 11.0-15.0 [facility] Comment on above: Performed By: #### C BC #### [facility] [address] [place] [address] Dr. Dwight Waters Hematocrit (Bld) [Volume fraction] 50.0 % Normal 42.0-54.0 [facility] Comment on above: Performed By: #### C BC #### [facility] [address] [place] [address] Dr. Dwight Waters Hemoglobin (Bld) [Mass/Vol] 16.0 g/dL Normal 14.0-18.0 [facility] Comment on above: Performed By: #### C BC #### [facility] [address] [place] [address] Dr. Dwight Waters IG # 0.02 10e3/ul Normal 0.00-0.03 [facility] Comment on above: Performed By: #### C BC #### [facility] [address] [place] [address] Dr. Dwight Waters IG % 0.3 % Normal 0.0-0.5 [facility] Comment on above: Performed By: #### C BC #### [facility] [address] [place] [address] Dr. Dwight Waters LYMPH # 1.8 103/ul Normal 1.2-3.8 [facility] Comment on above: Performed By: #### C BC #### [facility] [address] [place] [address] Dr. Dwight Waters Lymphocytes/100 WBC (Bld) 26.5 % Normal 20.5-60.0 [facility] Comment on above: Performed By: #### C BC #### [facility] [address] [place] [address] Dr. Dwight Waters MANUAL DIFF REQ NO Normal [facility] Comment on above: Performed By: #### C BC #### [facility] [address] [place] [address] Dr. Dwight Waters MCH (RBC) [Entitic mass] 28.1 pg Normal 25.9-34.0 [facility] Comment on above: Performed By: #### C BC #### [facility] [address] [place] [address] Dr. Dwight Waters MCHC (RBC) [Mass/Vol] 32.0 g/dL Normal 29.9-35.2 [facility] Comment on above: Performed By: #### C BC #### [facility] [address] [place], [place] [id number] Dr. Dwight Waters MCV (RBC) [Entitic vol] 87.9 fL Normal 80.0-94.0 [facility] Comment on above: Performed By: #### C BC #### [facility] [address] [place] [address] Dr. Dwight Waters MONO # 0.5 103/ul Normal 0.3-0.8 [facility] Comment on above: Performed By: #### C BC #### [facility] [address] [place] [address] Dr. Dwihgt Waters Monocytes/100 WBC (Bld) 8.1 % Normal 1.7-12.0 [facility] Comment on above: Performed By: #### C BC #### [facility] [address] [place] [address] Dr. Dwight Waters NEUT # 4.0 103/ul Normal 1.4-6.5 [facility] Comment on above: Performed By: #### C BC #### [facility] [address] [place] [address] Dr. Dwight Waters Neutrophils/100 WBC (Bld) 60.8 % Normal 43.0-75.0 [facility] Comment on above: Performed By: #### C BC #### [facility] [address] [place] [address] Dr. Dwight Waters Platelet mean volume (Bld) [Entitic vol] 9.4 fL Critically low 9.5-13.5 [facility] Comment on above: Performed By: #### C BC #### [facility] [address] [place] [address] Dr. Dwight Waters PLT 265 103/ul Normal 150-450 [facility] Comment on above: Performed By: #### C BC #### [facility] [address] [place] [address] Dr. Dwight Waters RBC 5.69 106/ul Normal 4.70-6.10 [facility] Comment on above: Performed By: #### C BC #### [facility] [address] [place] [address] Dr. Dwight Waters WBC 6.6 103/ul Normal 4.0-11.0 [facility] Comment on above: Performed By: #### C BC #### [facility] [address] [place] [address] Dr. Dwight Waters GGTon 09-15-2022 Gamma glutamyl transferase [Catalytic activity/Vol] 23 U/L Normal 15-85 [facility] Comment on above: Performed By: #### U RTPCR #### [facility] [address] [place] [address] Dr. Dwight Waters MAGNESIUMon 09-15-2022 Magnesium [Mass/Vol] 1.8 mg/dL Normal 1.8-2.4 [facility] Comment on above: Performed By: #### U RTPCR #### [facility] [address] [place] [address] Dr. Dwight Waters RENAL FUNCTION PANELon 09-15 Albumin [Mass/Vol] 4.1 g/dL Normal 3.4-5.0 [facility] Comment on above: Performed By: #### C BC #### [facility] [address] [place] [address] Dr. Dwight Waters Calcium [Mass/Vol] 9.3 mg/dL Normal 8.5-10.1 [facility] Comment on above: Performed By: #### C BC #### [facility] [address] [place] [address] Dr. Dwight Waters Chloride [Moles/Vol] 107 mmol/L Normal 98-107 [facility] Comment on above: Performed By: #### C BC #### [facility] [address] [place] [address] Dr. Dwight Waters CO2 [Moles/Vol] 25.6 mmol/L Normal 21.0-32.0 [facility] Comment on above: Performed By: #### C BC #### [facility] [address] [place] [address] Dr. Dwight Waters Creatinine [Mass/Vol] 1.01 mg/dL Normal 0.70-1.30 [facility] Comment on above: Performed By: #### C BC #### [facility] [address] [address] [address] Dwight Waters EGFR-AF [place]OREAN >60 Normal >=60 [facility] Comment on above: Performed By: #### C BC #### [facility] [address] [place] [address] Dr. Dwight Waters EGFR-NON AF [place] >60 Normal >=60 [facility] Comment on above: Performed By: #### C BC #### [facility] [address] [address] [address] Dwight Waters Glucose [Mass/Vol] 119 mg/dL Critically high 74-106 T [facility] Comment on above: Performed By: #### C BC #### [facility] [address] [place] [address] Dr. Dwight Waters Phosphate [Mass/Vol] 2.8 mg/dL Normal 2.6-4.7 [facility] Comment on above: Performed By: #### C BC #### [facility] [address] [place] [address] Dr. Dwight Waters Potassium [Moles/Vol] 4.0 mmol/L Normal 3.5-5.1 [facility] Comment on above: Performed By: #### C BC #### [facility] [address] [place] [address] Dr. Dwight Waters Sodium [Moles/Vol] 141 mmol/L Normal 136-145 [facility] Comment on above: Performed By: #### C BC #### [facility] [address] [place] [address] Dr. Dwight Waters Urea nitrogen [Mass/Vol] 15.0 mg/dL Normal 7.0-18.0 [facility] Comment on above: Performed By: #### C BC #### [facility] [address] [place] [address] Dr. Dwight Araizan 09-15-2022 AST [Catalytic activity/Vol] 18 U/L Normal 15-37 [facility] Comment on above: Performed By: #### U RTPCR #### [facility] [address] [place] [address] Dr. Dwight OLVERAPTon 09-15-2022 ALT [Catalytic activity/Vol] 32 U/L Normal 16-63 [facility] Comment on above: Performed By: #### C BC #### [facility] [address] [address] [address] Dwight Waters URINE T PROTEIN CREAT RATIOo n 09-15-2022 Protein (U) [Mass/Vol] 14.1 mg/dL Critically high <=12.0 [facility] Comment on above: Performed By: #### U RTPCR #### [facility] [address] [address] [address] Dwight Waters UR PROT CREAT RAT 0.14 Normal [facility] Comment on above: Performed By: #### U RTPCR #### [facility] [address] [address] [address] Dwight Waters URINE CREAT 98.89 mg/dL Normal 20.00-300.00 [facility] Comment on above: Performed By: #### U RTPCR #### [facility] [address] [place] [address] Dr. Dwight Waters US CAROTID ART BILon [...] #### [facility] [address] [place] [address] Dr. Dwight Waters BK VIRUS PCR QUANTon 022 BKV DNA QUANT PCR PLASMA Negative Normal Negative [facility] Comment on above: Result Comment: No B K DNA detected. . The linear range of the assay is 22 - 100,000,000 IU/mL. Performed By: #### U RTPCR #### [facility] [address] [place] [address] Dr. Dwight Waters Log10 BKV DNA Plasma Normal [facility] Comment on above: Performed By: #### U RTPCR #### [facility] [address] [place] [address] Dr. Dwight Waters ALBUMINon 08-14-2022 Albumin [Mass/Vol] 4.2 g/dL Normal 3.4-5.0 [facility] Comment on above: Performed By: #### F [id number] #### [facility] [address] [place] [address] Dr. Dwight Waters ALKALINE PHOSPHAon ALP [Catalytic activity/Vol] 92 U/L Normal 46-116 [facility] Comment on above: Performed By: #### C BC #### [facility] [address] [place] [address] Dr. Dwight Waters BILIRUBIN CONJUGATED (DIRECT )on 08-14-2022 BILI, CONJUGATED 0.3 mg/dL Critically high 0.0-0.2 [facility] Comment on above: Performed By: #### F [id number] #### [facility] [address] [place] [address] Dr. Dwight Waters BILIRUBIN TOTALon 08-14-2022 Bilirubin [Mass/Vol] 1.5 mg/dL Critically high 0.2-1.0 [facility] Comment on above: Performed By: #### F [id number] #### [facility] [address] [place] [address] Dr. Dwight Waters BUNon 08-14-2022 Urea nitrogen [Mass/Vol] 11.0 mg/dL Normal 7.0-18.0 [facility] Comment on above: Performed By: #### C BC #### [facility] [address] [address] [address] Dwight Waters CALCIUMon 08-14-2022 Calcium [Mass/Vol] 9.4 mg/dL Normal 8.5-10.1 [facility] Comment on above: Performed By: #### F [id number] #### [facility] [address] [place] [address] Dr. Dwight Waters CBC AUTO DIFFon 08-14-2022 BASO # 0.0 103/ul Normal 0.0-0.1 [facility] Comment on above: Performed By: #### C MP #### [facility] [address] [place] [address] Dr. Dwight Waters Basophils/100 WBC (Bld) 0.5 % Normal 0.2-2.0 [facility] Comment on above: Performed By: #### C MP #### [facility] [address] [place] [address] Dr. Dwight Waters EO # 0.2 103/ul Normal 0.0-0.7 [facility] Comment on above: Performed By: #### C MP #### [facility] [address] [place] [address] Dr. Dwight Waters Eosinophils/100 WBC (Bld) 2.6 % Normal 0.9-7.0 [facility] Comment on above: Performed By: #### C MP #### [facility] [address] [place] [address] Dr. Dwight Waters Erythrocyte distribution width (RBC) [Ratio] 13.1 % Normal 11.0-15.0 [facility] Comment on above: Performed By: #### C MP #### [facility] [address] [place] [address] Dr. Dwight Waters Hematocrit (Bld) [Volume fraction] 47.0 % Normal 42.0-54.0 [facility] Comment on above: Performed By: #### C MP #### [facility] [address] [place] [address] Dr. Dwight Waters Hemoglobin (Bld) [Mass/Vol] 15.3 g/dL Normal 14.0-18.0 [facility] Comment on above: Performed By: #### C MP #### [facility] [address] [address] [address] Dwight Waters IG # 0.01 10e3/ul Normal 0.00-0.03 [facility] Comment on above: Performed By: #### C MP #### [facility] [address] [address] [address] Dwight Waters IG % 0.1 % Normal 0.0-0.5 [facility] Comment on above: Performed By: #### C MP #### [facility] [address] [place] [address] Dr. Dwight Waters LYMPH # 2.3 103/ul Normal 1.2-3.8 [facility] Comment on above: Performed By: #### C MP #### [facility] [address] [place] [address] Dr. Dwight Waters Lymphocytes/100 WBC (Bld) 29.8 % Normal 20.5-60.0 [facility] Comment on above: Performed By: #### C MP #### [facility] [address] [place] [address] Dr. Dwight Waters MANUAL DIFF REQ NO Normal [facility] Comment on above: Performed By: #### C MP #### [facility] [address] [place] [address] Dr. Dwight Waters MCH (RBC) [Entitic mass] 28.2 pg Normal 25.9-34.0 [facility] Comment on above: Performed By: #### C MP #### [facility] [address] [place] [address] Dr. Dwight Waters MCHC (RBC) [Mass/Vol] 32.6 g/dL Normal 29.9-35.2 [facility] Comment on above: Performed By: #### C MP #### [facility] [address] [place] [address] Dr. Dwight Waters MCV (RBC) [Entitic vol] 86.7 fL Normal 80.0-94.0 [facility] Comment on above: Performed By: #### C MP #### [facility] [address] [place] [address] Dr. Dwight Waters MONO # 0.7 103/ul Normal 0.3-0.8 [facility] Comment on above: Performed By: #### C MP #### [facility] [address] [place] [address] Dr. Dwight Waters Monocytes/100 WBC (Bld) 8.5 % Normal 1.7-12.0 [facility] Comment on above: Performed By: #### C MP #### [facility] [address] [place] [address] Dr. Dwight Waters NEUT # 4.5 103/ul Normal 1.4-6.5 [facility] Comment on above: Performed By: #### C MP #### [facility] [address] [place] [address] Dr. Dwight Waters Neutrophils/100 WBC (Bld) 58.5 % Normal 43.0-75.0 [facility] Comment on above: Performed By: #### C MP #### [facility] [address] [place] [address] Dr. Dwight Waters Platelet mean volume (Bld) [Entitic vol] 9.7 fL Normal 9.5-13.5 [facility] Comment on above: Performed By: #### C MP #### [facility] [address] [place] [address] Dr. Dwight Waters PLT 266 103/ul Normal 150-450 [facility] Comment on above: Performed By: #### C MP #### [facility] [address] [place] [address] Dr. Dwight Waters RBC 5.42 106/ul Normal 4.70-6.10 [facility] Comment on above: Performed By: #### C MP #### [facility] [address] [place] [address] Dr. Dwight Waters WBC 7.6 103/ul Normal 4.0-11.0 [facility] Comment on above: Performed By: #### C MP #### [facility] [address] [place] [address] Dr. Dwight Waters CHLORIDEon 08-14-2022 Chloride [Moles/Vol] 104 mmol/L Normal 98-107 [facility] Comment on above: Performed By: #### C BC #### [facility] [address] [place] [address] Dr. Dwight Waters CO2on 08-14-2022 CO2 [Moles/Vol] 27.9 mmol/L Normal 21.0-32.0 [facility] Comment on above: Performed By: #### C BC #### [facility] [address] [place] [address] Dr. Dwight Waters CREATININEon 08-14-2022 Creatinine [Mass/Vol] 1.08 mg/dL Normal 0.70-1.30 [facility] Comment on above: Performed By: #### C BC #### [facility] [address] [place] [address] Dr. Dwight Waters EGFR-AF [place]TH [place]OREAN >60 Normal >=60 [facility] Comment on above: Performed By: #### C BC #### [facility] [address] [place] [address] Dr. Dwight Waters EGFR-NON AF [place] >60 Normal >=60 [facility] Comment on above: Performed By: #### C BC #### [facility] [address] [place] [address] Dr. Dwight Waters GGTon 08-14-2022 Gamma glutamyl transferase [Catalytic activity/Vol] 24 U/L Normal 15-85 [facility] Comment on above: Performed By: #### F [id number] #### [facility] [address] [place] [address] Dr. Dwight Waters GLUCOSE BLOODon 08-14-2022 Glucose [Mass/Vol] 111 mg/dL Critically high 74-106 [facility] Comment on above: Performed By: #### C BC #### [facility] [address] [place] [address] Dr. Dwight Waters MAGNESIUMon 08-14-2022 Magnesium [Mass/Vol] 1.4 mg/dL Critically low 1.8-2.4 [facility] Comment on above: Performed By: #### C BC #### [facility] [address] [place] [address] Dr. Dwight Waters NAandrzej 08-14-2022 Sodium [Moles/Vol] 140 mmol/L Normal 136-145 [facility] Comment on above: Performed By: #### F [id number] #### [facility] [address] [place] [address] Dr. Dwight Davis 08-14-2022 Phosphate [Mass/Vol] 3.1 mg/dL Normal 2.6-4.7 [facility] Comment on above: Performed By: #### C BC #### [facility] [address] [place] [address] Dr. Dwight Waters POTASSIUMandrzej 08-14-2022 Potassium [Moles/Vol] 3.5 mmol/L Normal 3.5-5.1 [facility] Comment on above: Performed By: #### C BC #### [facility] [address] [place] [address] Dr. Dwight Albert 08-14-2022 AST [Catalytic activity/Vol] 17 U/L Normal 15-37 [facility] Comment on above: Performed By: #### F K506T #### [facility] [address] [place] [address] Dr. Dwight Osei 08-14-2022 ALT [Catalytic activity/Vol] 22 U/L Normal 16-63 [facility] Comment on above: Performed By: #### F K506T #### [facility] [address] [place] [address] Dr. Dwight Waters URINE T PROTEIN CREAT RATIOo n 08-14-2022 Protein (U) [Mass/Vol] 10.7 mg/dL Normal <=12.0 [facility] Comment on above: Performed By: #### F K506T #### [facility] [address] [place] [address] Dr. Dwight Waters UR PROT CREAT RAT 0.10 Normal [facility] Comment on above: Performed By: #### F K506T #### [facility] [address] [address] [address] Dwight Waters URINE CREAT 104.28 mg/dL Normal 20.00-300.00 [facility] Comment on above: Performed By: #### F K506T #### [facility] [address] [place], [place] [address] Dr. Dwight Waters NEPHROSTOMY TUBE REMOVALon 0 [...] physician present for entire procedure: yes [facility] Radiology Study observation (narrative) [facility] FK506 (TACROLIMUS) WHOLE BLO ODon 07-06-2022 Tacrolimus (FK506), Blood 9.5 ng/mL Normal 2.0-20.0 [facility] Comment on above: Result Comment: Trou gh (immediately following transplant) 15.0 . Trough (steady state, 2 weeks or more after transplant): 3.0 - 8.0 . Performed by LC-MS/MS technology. Performed By: #### C MP #### [facility] [address] [place] [address] Dr. Dwight Waters ALBUMINon 07-03-2022 Albumin [Mass/Vol] 3.7 g/dL Normal 3.4-5.0 [facility] Comment on above: Performed By: #### U RTPCR #### [facility] [address] [place] [address] Dr. Dwight Waters ALKALINE PHOSPHAon ALP [Catalytic activity/Vol] 76 U/L Normal 46-116 [facility] Comment on above: Performed By: #### U RTPCR #### [facility] [address] [place] [address] Dr. Dwight Waters BILIRUBIN CONJUGATED (DIRECT )on 07-03-2022 BILI, CONJUGATED 0.3 mg/dL Critically high 0.0-0.2 [facility] Comment on above: Performed By: #### C BC #### [facility] [address] [place] [address] Dr. Dwight Waters BILIRUBIN TOTALon 07-03-2022 Bilirubin [Mass/Vol] 1.4 mg/dL Critically high 0.2-1.0 [facility] Comment on above: Performed By: #### C BC #### [facility] [address] [place] [address] Dr. Dwight Waters BUNon 07-03-2022 Urea nitrogen [Mass/Vol] 15.0 mg/dL Normal 7.0-18.0 [facility] Comment on above: Performed By: #### C BC #### [facility] [address] [place] [address] Dr. Dwight Waters CALCIUMon 07-03-2022 Calcium [Mass/Vol] 9.4 mg/dL Normal 8.5-10.1 [facility] Comment on above: Performed By: #### U RTPCR #### [facility] [address] [place] [address] Dr. Dwight Waters CBC AUTO DIFFon 07-03-2022 BASO # 0.0 103/ul Normal 0.0-0.1 [facility] Comment on above: Performed By: #### U RTPCR #### [facility] [address] [address] [address] Dwight Waters Basophils/100 WBC (Bld) 0.6 % Normal 0.2-2.0 [facility] Comment on above: Performed By: #### U RTPCR #### [facility] [address] [address] [address] Dwight Waters EO # 0.2 103/ul Normal 0.0-0.7 [facility] Comment on above: Performed By: #### U RTPCR #### [facility] [address] [address] [address] Dwight Waters Eosinophils/100 WBC (Bld) 3.5 % Normal 0.9-7.0 [facility] Comment on above: Performed By: #### U RTPCR #### [facility] [address] [place] [address] Dr. Dwight Waters Erythrocyte distribution width (RBC) [Ratio] 12.9 % Normal 11.0-15.0 [facility] Comment on above: Performed By: #### U RTPCR #### [facility] [address] [place] [address] Dr. Dwight Waters Hematocrit (Bld) [Volume fraction] 44.2 % Normal 42.0-54.0 [facility] Comment on above: Performed By: #### U RTPCR #### [facility] [address] [place] [address] Dr. Dwight Waters Hemoglobin (Bld) [Mass/Vol] 14.6 g/dL Normal 14.0-18.0 [facility] Comment on above: Performed By: #### U RTPCR #### [facility] [address] [place] [address] Dr. Dwight Waters IG # 0.02 10e3/ul Normal 0.00-0.03 [facility] Comment on above: Performed By: #### U RTPCR #### [facility] [address] [place] [address] Dr. Dwight Waters IG % 0.3 % Normal 0.0-0.5 [facility] Comment on above: Performed By: #### U RTPCR #### [facility] [address] [address] [address] Dwight Waters LYMPH # 2.0 103/ul Normal 1.2-3.8 [facility] Comment on above: Performed By: #### U RTPCR #### [facility] [address] [address] [address] Dwight Waters Lymphocytes/100 WBC (Bld) 28.4 % Normal 20.5-60.0 [facility] Comment on above: Performed By: #### U RTPCR #### [facility] [address] [place] [address] Dr. Dwight Waters MANUAL DIFF REQ NO Normal [facility] Comment on above: Performed By: #### U RTPCR #### [facility] [address] [place] [address] Dr. Dwight Waters MCH (RBC) [Entitic mass] 28.6 pg Normal 25.9-34.0 [facility] Comment on above: Performed By: #### U RTPCR #### [facility] [address] [place] [address] Dr. Dwight Waters MCHC (RBC) [Mass/Vol] 33.0 g/dL Normal 29.9-35.2 [facility] Comment on above: Performed By: #### U RTPCR #### [facility] [address] [place] [address] Dr. Dwight Waters MCV (RBC) [Entitic vol] 86.7 fL Normal 80.0-94.0 [facility] Comment on above: Performed By: #### U RTPCR #### [facility] [address] [place] [address] Dr. Dwight Waters MONO # 0.6 103/ul Normal 0.3-0.8 [facility] Comment on above: Performed By: #### U RTPCR #### [facility] [address] [place] [address] Dr. Dwight Waters Monocytes/100 WBC (Bld) 9.1 % Normal 1.7-12.0 [facility] Comment on above: Performed By: #### U RTPCR #### [facility] [address] [address] [address] Dwight Waters NEUT # 4.0 103/ul Normal 1.4-6.5 [facility] Comment on above: Performed By: #### U RTPCR #### [facility] [address] [address] [address] Dwight Waters Neutrophils/100 WBC (Bld) 58.1 % Normal 43.0-75.0 [facility] Comment on above: Performed By: #### U RTPCR #### [facility] [address] [address] [address] Dwight Waters Platelet mean volume (Bld) [Entitic vol] 9.5 fL Normal 9.5-13.5 [facility] Comment on above: Performed By: #### U RTPCR #### [facility] [address] [place] [address] Dr. Dwight Waters PLT 292 103/ul Normal 150-450 [facility] Comment on above: Performed By: #### U RTPCR #### [facility] [address] [address] [address] Dwight Waters RBC 5.10 106/ul Normal 4.70-6.10 [facility] Comment on above: Performed By: #### U RTPCR #### [facility] [address] [place] [address] Dr. Dwight Waters WBC 6.9 103/ul Normal 4.0-11.0 [facility] Comment on above: Performed By: #### U RTPCR #### [facility] [address] [address] [address] Dwight Waters CHLORIDEon 07-03-2022 Chloride [Moles/Vol] 108 mmol/L Critically high 98-107 [facility] Comment on above: Performed By: #### C BC #### [facility] [address] [place] [address] Dr. Dwight Waters CO2on 07-03-2022 CO2 [Moles/Vol] 25.2 mmol/L Normal 21.0-32.0 [facility] Comment on above: Performed By: #### C BC #### [facility] [address] [place] [address] Dr. Dwight Waters CREATININEon 07-03-2022 Creatinine [Mass/Vol] 1.03 mg/dL Normal 0.70-1.30 [facility] Comment on above: Performed By: #### U RTPCR #### [facility] [address] [place] [address] Dr. Dwight Waters EGFR-AF [place] >60 Normal >=60 [facility] Comment on above: Performed By: #### U RTPCR #### [facility] [address] [place] [address] Dr. Dwight Waters EGFR-NON AF [place] >60 Normal >=60 [facility] Comment on above: Performed By: #### U RTPCR #### [facility] [address] [place] [address] Dr. Dwight Waters GGTon 07-03-2022 Gamma glutamyl transferase [Catalytic activity/Vol] 31 U/L Normal 15-85 [facility] Comment on above: Performed By: #### U RTPCR #### [facility] [address] [place] [address] Dr. Dwight Waters GLUCOSE BLOODon 07-03-2022 Glucose [Mass/Vol] 119 mg/dL Critically high 74-106 T [facility] Comment on above: Performed By: #### U RTPCR #### [facility] [address] [place] [address] Dr. Dwight Waters MAGNESIUMon 07-03-2022 Magnesium [Mass/Vol] 1.4 mg/dL Critically low 1.8-2.4 [facility] Comment on above: Performed By: #### C BC #### [facility] [address] [place] [address] Dr. Dwight Waters NAon 07-03-2022 Sodium [Moles/Vol] 142 mmol/L Normal 136-145 [facility] Comment on above: Performed By: #### C MP #### [facility] [address] [place] [address] Dr. Dwight Waters PHOSPHORUSon 07-03-2022 Phosphate [Mass/Vol] 3.4 mg/dL Normal 2.6-4.7 [facility] Comment on above: Performed By: #### C BC #### [facility] [address] [place] [address] Dr. Dwight Waters POTASSIUMon 07-03-2022 Potassium [Moles/Vol] 4.1 mmol/L Normal 3.5-5.1 [facility] Comment on above: Performed By: #### C BC #### [facility] [address] [place] [address] Dr. Dwight Waters SGOTon 07-03-2022 AST [Catalytic activity/Vol] 14 U/L Critically low 15-37 [facility] Comment on above: Performed By: #### C BC #### [facility] [address] [place] [address] Dr. Dwight Waters SGPTon 07-03-2022 ALT [Catalytic activity/Vol] 25 U/L Normal 16-63 [facility] Comment on above: Performed By: #### C BC #### [facility] [address] [place] [address] Dr. Dwight Waters KIDNEYSon 07-03-2022 US KIDNEYS Ultrasound kidneys, bilateral HISTORY: Transplant of kidney , pain in the right lower quadrant COMPARISON: None. TECHNIQUE: Transabdominal ultrasound imaging of both kidneys was performed. FINDINGS: The [place] kidneys are diffusely echogenic and atrophic with cortical thinning. The right kidney measures 8.3 x 3.5 x 4.07 m and the left measures 9.9 x 3.8 x 3.6 cm. No hydronephrosis of the [place] kidneys. There is a renal transplant in [...] stone involving the renal transplant. 2. Atrophic [place] kidneys. 3. Normal bladder. Electronically authenticated by: ARCELIA PIZARRO Date: 2022-07-03 17:22 Normal [facility] CT Abdomen and Pelvis WO geoff sosa 06-27-2022 IMPRESSION: 1. Both [place] kidneys are atrophic with improvement in right-sided [...] Adrenals: Adrenal glands are unremarkable. Kidneys: Both [place] kidneys are atrophic. Interval improvement in right [place] kidney hydronephrosis since May 15, 2022. Status [...] Adrenals: Adrenal glands are unremarkable. Kidneys: Both [place] kidneys are atrophic. Interval improvement in right [place] kidney hydronephrosis since May 15, 2022. Status [...] aggressive osseous lesions. IMPRESSION IMPRESSION: 1. Both [place] kidneys are atrophic with improvement in right-sided hydronephrosis since May 15, 2022. 2. 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 No hydronephrosis. No discrete perinephric collection. 3. Partially imaged postsurgical changes related to prior liver transplant. 4. The bladder is decompressed, limiting evaluation. [facility] Radiology Study observation (narrative) [facility] CT Abdomen and Pelvis WO con trastOrdered By: Gera Lu on 06-27-[address] [facility] Work Phone: CBC AUTO DIFFon 06-18-2022 BASO # 0.0 103/ul Normal 0.0-0.1 [facility] Comment on above: Performed By: #### U RTPCR #### [facility] [address] [place] [address] Dr. Dwight Waters Basophils/100 WBC (Bld) 0.5 % Normal 0.2-2.0 [facility] Comment on above: Performed By: #### U RTPCR #### [facility] [address] [place] [address] Dr. Dwight Waters EO # 0.2 103/ul Normal 0.0-0.7 [facility] Comment on above: Performed By: #### U RTPCR #### [facility] [address] [place] [address] Dr. Dwight Waters Eosinophils/100 WBC (Bld) 2.3 % Normal 0.9-7.0 [facility] Comment on above: Performed By: #### U RTPCR #### [facility] [address] [place] [address] Dr. Dwight Waters Erythrocyte distribution width (RBC) [Ratio] 12.9 % Normal 11.0-15.0 [facility] Comment on above: Performed By: #### U RTPCR #### [facility] [address] [place] [address] Dr. Dwight Waters Hematocrit (Bld) [Volume fraction] 41.2 % Critically low 42.0-54.0 [facility] Comment on above: Performed By: #### U RTPCR #### [facility] [address] [place] [address] Dr. Dwight Waters Hemoglobin (Bld) [Mass/Vol] 13.3 g/dL Critically low 14.0-18.0 [facility] Comment on above: Performed By: #### U RTPCR #### [facility] [address] [place] [address] Dr. Dwight Waters IG # 0.04 10e3/ul Critically high 0.00-0.03 [facility] Comment on above: Performed By: #### U RTPCR #### [facility] [address] [place] [address] Dr. Dwight Waters IG % 0.5 % Normal 0.0-0.5 [facility] Comment on above: Performed By: #### U RTPCR #### [facility] [address] [place] [address] Dr. Dwight Waters LYMPH # 2.0 103/ul Normal 1.2-3.8 [facility] Comment on above: Performed By: #### U RTPCR #### [facility] [address] [place] [address] Dr. Dwight Waters Lymphocytes/100 WBC (Bld) 22.9 % Normal 20.5-60.0 [facility] Comment on above: Performed By: #### U RTPCR #### [facility] [address] [place] [address] Dr. Dwight Waters MANUAL DIFF REQ NO Normal [facility] Comment on above: Performed By: #### U RTPCR #### [facility] [address] [place] [address] Dr. Dwight Waters MCH (RBC) [Entitic mass] 28.7 pg Normal 25.9-34.0 [facility] Comment on above: Performed By: #### U RTPCR #### [facility] [address] [place] [address] Dr. Dwight Waters MCHC (RBC) [Mass/Vol] 32.3 g/dL Normal 29.9-35.2 [facility] Comment on above: Performed By: #### U RTPCR #### [facility] [address] [place] [place] [address] Dr. Dwight Waters MCV (RBC) [Entitic vol] 88.8 fL Normal 80.0-94.0 [facility] Comment on above: Performed By: #### U RTPCR #### [facility] [address] [place] [address] Dr. Dwight Waters MONO # 0.8 103/ul Normal 0.3-0.8 [facility] Comment on above: Performed By: #### U RTPCR #### [facility] [address] [place] [address] Dr. Dwight Waters Monocytes/100 WBC (Bld) 9.7 % Normal 1.7-12.0 [facility] Comment on above: Performed By: #### U RTPCR #### [facility] [address] [place] [address] Dr. Dwight Waters NEUT # 5.6 103/ul Normal 1.4-6.5 [facility] Comment on above: Performed By: #### U RTPCR #### [facility] [address] [place] [address] Dr. Dwight Waters Neutrophils/100 WBC (Bld) 64.1 % Normal 43.0-75.0 [facility] Comment on above: Performed By: #### U RTPCR #### [facility] [address] [place] [address] Dr. Dwight Waters Platelet mean volume (Bld) [Entitic vol] 10.0 fL Normal 9.5-13.5 [facility] Comment on above: Performed By: #### U RTPCR #### [facility] [address] [place] [address] Dr. Dwight Waters PLT 270 103/ul Normal 150-450 [facility] Comment on above: Performed By: #### U RTPCR #### [facility] [address] [place] [address] Dr. Dwight Waters RBC 4.64 106/ul Critically low 4.70-6.10 [facility] Comment on above: Performed By: #### U RTPCR #### [facility] [address] [place] [address] Dr. Dwight Waters WBC 8.7 103/ul Normal 4.0-11.0 [facility] Comment on above: Performed By: #### U RTPCR #### [facility] [address] [place] [address] Dr. Dwight Waters CULTURE URINEon 06-18-2022 CULTURE URINE Culture Observations : NO GROWTH. Normal [facility] Comment on above: Performed By: #### U RTPCR #### [facility] [address] [place] [address] Dr. Dwight Waters Covid-19 PCR ([facility]on 05-31 SARS-CoV-2 (COVID-19) RNA ESTELITA+probe Ql (Unsp [...] for this test is supported by the [place] of Health and Human Service's declaration that [...] #### [facility] [address] [place] [address] Dr. Dwight Waters ER URINE PROFILEon Bilirubin Ql (U) Negative Normal NEGATIVE [facility] Comment on above: Performed By: #### U RTPCR #### [facility] [address] [place] [address] Dr. Dwight Waters Clarity (U) CLEAR Normal CLEAR [facility] Comment on above: Performed By: #### U RTPCR #### [facility] [address] [place] [address] Dr. Dwight Waters Color (U) YELLOW Normal YELLOW [facility] Comment on above: Performed By: #### U RTPCR #### [facility] [address] [place] [address] Dr. Dwight SHARMA A micrscopic examination will be performed if indicated. Normal [facility] Comment on above: Performed By: #### U RTPCR #### [facility] [address] [place] [address] Dr. Dwight Waters Glucose Ql (U) Negative Normal NEGATIVE [facility] Comment on above: Performed By: #### U RTPCR #### [facility] [address] [place] [address] Dr. Dwight Waters Hemoglobin Ql (U) LARGE Abnormal NEGATIVE [facility] Comment on above: Performed By: #### U RTPCR #### [facility] [address] [place] [address] Dr. Dwight Waters Ketones Ql (U) Negative Normal NEGATIVE [facility] Comment on above: Performed By: #### U RTPCR #### [facility] [address] [place] [address] Dr. Dwight Waters LEUKOCYTES TRACE Abnormal NEGATIVE [facility] Comment on above: Performed By: #### U RTPCR #### [facility] [address] [place] [address] Dr. Dwight Waters Nitrite Ql (U) Negative Normal NEGATIVE [facility] Comment on above: Performed By: #### U RTPCR #### [facility] [address] [place] [address] Dr. Dwight Waters pH (U) 6.0 [pH] Normal 5-9 [facility] Comment on above: Performed By: #### U RTPCR #### [facility] [address] [place] [address] Dr. Dwight Waters Protein (U) [Mass/Vol] 30 mg/dL Abnormal NEGAT MAYUR/ TRACE [facility] Comment on above: Performed By: #### U RTPCR #### [facility] [address] [place] [address] Dr. Dwight Waters SPEC GRAVITY >=1.030 Abnormal 1.005-<=1.025 [facility] Comment on above: Performed By: #### U RTPCR #### [facility] [address] [place] [address] Dr. Dwight Waters UR MICRO IND INDICATED Normal [facility] Comment on above: Performed By: #### U RTPCR #### [facility] [address] [place] [address] Dr. Dwight Waters Urobilinogen Qn (U) 0.2 {Alyssa'U}/dL Normal 0.2 - 1. 0 [facility] Comment on above: Performed By: #### U RTPCR #### [facility] [address] [place] [address] Dr. Dwight Waters PROF 14(COMP METB)on 022 Albumin [Mass/Vol] 3.7 g/dL Normal 3.4-5.0 [facility] Comment on above: Performed By: #### C MP #### [facility] [address] [place] [address] Dr. Dwight Waters Albumin/Globulin [Mass ratio] 0.9 {ratio} Normal [facility] Comment on above: Performed By: #### C MP #### [facility] [address] [place] [address] Dr. Dwight Waters ALP [Catalytic activity/Vol] 80 U/L Normal 46-116 [facility] Comment on above: Performed By: #### C MP #### [facility] [address] [place] [address] Dr. Dwight Waters ALT [Catalytic activity/Vol] 24 U/L Normal 16-63 [facility] Comment on above: Performed By: #### C MP #### [facility] [address] [place] [address] Dr. Dwight Waters Anion gap [Moles/Vol] 12.9 mmol/L Normal [facility] Comment on above: Performed By: #### C MP #### [facility] [address] [place] [address] Dr. Dwight Waters AST [Catalytic activity/Vol] 17 U/L Normal 15-37 [facility] Comment on above: Performed By: #### C MP #### [facility] [address] [address] [address] Dwight Waters Bilirubin [Mass/Vol] 0.8 mg/dL Normal 0.2-1.0 [facility] Comment on above: Performed By: #### C MP #### [facility] [address] [address] [address] Dwight Waters Calcium [Mass/Vol] 9.4 mg/dL Normal 8.5-10.1 [facility] Comment on above: Performed By: #### C MP #### [facility] [address] [address] [address] Dwight Waters Chloride [Moles/Vol] 106 mmol/L Normal 98-107 [facility] Comment on above: Performed By: #### C MP #### [facility] [address] [address] [address] Dwight Waters CO2 [Moles/Vol] 25.3 mmol/L Normal 21.0-32.0 [facility] Comment on above: Performed By: #### C MP #### [facility] [address] [address] [address] Dwight Waters Creatinine [Mass/Vol] 1.29 mg/dL Normal 0.70-1.30 [facility] Comment on above: Performed By: #### C MP #### [facility] [address] [address] [address] Dwight Waters EGFR-AF [place] >60 Normal >=60 [facility] Comment on above: Performed By: #### C MP #### [facility] [address] [address] [address] Dwight Waters EGFR-NON AF [place] 59 mL/min/1.73m2 Critically low >=60 [facility] Comment on above: Performed By: #### C MP #### [facility] [address] [address] [address] Dwight Waters Globulin (S) [Mass/Vol] 4.2 g/dL Normal [facility] Comment on above: Performed By: #### C MP #### [facility] [address] [address] [address] Dwight Waters Glucose [Mass/Vol] 106 mg/dL Normal 74-106 [facility] Comment on above: Performed By: #### C MP #### [facility] [address] [address] [address] Dwight Waters Potassium [Moles/Vol] 4.2 mmol/L Normal 3.5-5.1 [facility] Comment on above: Performed By: #### C MP #### [facility] [address] [place] [address] Dr. Dwight Waters Protein [Mass/Vol] 7.9 g/dL Normal 6.4-8.2 [facility] Comment on above: Performed By: #### C MP #### [facility] [address] [place] [address] Dr. Dwight Waters Sodium [Moles/Vol] 140 mmol/L Normal 136-145 [facility] Comment on above: Performed By: #### C MP #### [facility] [address] [place] [address] Dr. Dwight Waters Urea nitrogen [Mass/Vol] 22.0 mg/dL Critically high 7.0-18.0 [facility] Comment on above: Performed By: #### C MP #### [facility] [address] [place] [address] Dr. Dwight Waters Urea nitrogen/Creatinine [Mass ratio] 17.1 mg/mg Normal [facility] Comment on above: Performed By: #### C MP #### [facility] [address] [address] [address] Dwight Waters URINE MICROSCOPIC ONLYon BACTERIA TRACE Abnormal NONE SEEN [facility] Comment on above: Performed By: #### U RTPCR #### [facility] [address] [place] [address] Dr. Dwight Waters Bacteria identified Cx Nom (U) INDICATED Normal [facility] Comment on above: Performed By: #### U RTPCR #### [facility] [address] [place] [address] Dr. Dwight Waters CAST NONE SEEN Normal NONE SEEN [facility] Comment on above: Performed By: #### U RTPCR #### [facility] [address] [place] [address] Dr. Dwight Waters Crystals LM Nom (Urine sed) NONE SEEN Normal NONE SEEN [facility] Comment on above: Performed By: #### U RTPCR #### [facility] [address] [place] [address] Dr. Dwight Waters Epithelial cells LM Ql (Urine sed) NONE SEEN Normal NONE SEEN /RARE [facility] Comment on above: Performed By: #### U RTPCR #### [facility] [address] [place] [address] Dr. Dwight Waters MUCOUS NONE SEEN Normal NONE SEEN [facility] Comment on above: Performed By: #### U RTPCR #### [facility] [address] [place] [address] Dr. Dwight Waters RBC 5-10 Abnormal 0-2 [facility] Comment on above: Performed By: #### U RTPCR #### [facility] [address] [place] [address] Dr. Dwight Waters WBC 10-20 Abnormal NONE SEEN [facility] Comment on above: Performed By: #### U RTPCR #### [facility] [address] [place] [address] Dr. Dwight Waters ALLOSCREEN RECIPIENT (POST T X PRA)on 06-13-2022 AB SPECIFICITY CLASS COMMENT Antibody Specificity testing performed by [employer]. cPRA calculation based on identification of HLA antibody specificities at MFI >2000 and/or presence of CREG antibodies. [facility] Comment on above: Some of the reagents used for testing in the Clinical Histocompatibility Laboratory have yet to be approved by the FDA. Our certification by CLIA to perform high complexity tests allows us to use these reagents in the context of a stringent QC program, and obviates the need for FDA approval.Testing performed by the [facility] Clinical Histocompatibility Laboratory. [facility] number: [id number]. CLIA number: [id number], Director: Carlito Merchant, PhD, D([facility]). ANTIBODY SPECIFICITY INTERPRETATION Detected [facility] CLASS I SPECIFICITIES Not detected [facility] CLASS II SPECIFICITIES Not detected [facility] HLA Ab (S) 0 % 0 [facility] EXTRA MICROon 06-13-[address] [facility] URINE CULTUREOrdered By: Jah Upton on 06-13-2022 Bacteria identified Cx Nom (Unsp spec) Growth [facility] Bacteria identified Cx Nom (Unsp spec) 10,000-50,000 CFU/mL Mixed skin shimon [facility] Comment on above: Multiple bacterial m orphotypes present. Suggest appropriate recollection if clinically indicated. [facility] CBC,PLATELETSon 06-12-2022 Erythrocyte distribution width (RBC) [Ratio] 13.0 % 10.9 - 14.3 % [facility] Hematocrit (Bld) [Volume fraction] 43.2 % 39.6 - 48.8 % [facility] Hemoglobin (Bld) [Mass/Vol] 13.9 g/dL 13.4 - 16.8 g/dL [facility] Interpretation and review of laboratory results Normal [facility] MCH (RBC) [Entitic mass] 28.7 pg 26.1 - 33.[address] [facility] MCHC (RBC) [Mass/Vol] 32.2 g/dL 31.9 - 36.5 g/dL [facility] MCV (RBC) [Entitic vol] 89.1 fL 79.0 - 94.[address] [facility] Platelet mean volume (Bld) [Entitic vol] 10.5 fL 8.7 - 12.[address] [facility] Platelets (Bld) [#/Vol] 269 10*3/uL 146 - 337 K/uL [facility] RBC (Bld) [#/Vol] 4.85 10*6/uL [facility] WBC (Bld) [#/Vol] 7.68 10*3/uL 3.73 - 10. 10 K/uL [facility] CHEM 7 (LYTES,BUN,CREA,GLUC) on 06-12-2022 Anion gap [Moles/Vol] 14 mmol/L 7 - 17 mmol/L [facility] Chloride [Moles/Vol] 106 mmol/L 98 - 10 8 mmol/L [facility] CO2 [Moles/Vol] 25 mmol/L 21 - 31 mmol/L [facility] Creatinine [Mass/Vol] 1.26 mg/dL 0.70 - 1.30 mg/dL [facility] GFR/1.73 sq M.predicted CKD-EPI (S/P/Bld) [Vol rate/Area] 69 >=60 mL/min/1.73m2 [facility] Comment on above: Reported eGFR is bas ed on the CKD-EPI 2020 equation using creatinine, age, and sex. Glucose [Mass/Vol] 83 mg/dL 70 - 99 mg/dL [facility] Osmolality Calc [Osmolality] [address] [facility] Potassium [Moles/Vol] 3.8 mmol/L 3.5 - 5.0 mmol/L [facility] Sodium [Moles/Vol] 141 mmol/L 135 - 145 mmol/L [facility] Urea nitrogen [Mass/Vol] 18 mg/dL 7 - 25 mg/dL [facility] Urea nitrogen/Creatinine [Mass ratio] 14 mg/mg [facility] GGTon 06-12-2022 Gamma glutamyl transferase [Catalytic activity/Vol] 20 U/L 8 - 64 U/L [facility] HEMOGLOBIN [id number] By: [employer] on 06-12-2022 Average glucose Estimated from glycated hemoglobin (Bld) [Mass/Vol] 126 mg/dL [facility] HbA1c (Bld) [Mass fraction] 6.0 % High 4.7 - 5.6 % [facility] Interpretation and review of laboratory results Abnormal [facility] HEPATIC FUNCTION PANELon Albumin [Mass/Vol] 4.3 g/dL 3.5 - 5.0 g/dL [facility] ALP [Catalytic activity/Vol] 78 U/L 32 - 126 U/L [facility] ALT [Catalytic activity/Vol] 12 U/L 10 - 52 U/L [facility] AST [Catalytic activity/Vol] 16 U/L 10 - 39 U/L [facility] Bilirubin [Mass/Vol] 1.0 mg/dL <1.[address] [facility] Bilirubin.direct [Mass/Vol] 0.2 mg/dL <0.[address] [facility] Protein [Mass/Vol] 7.5 g/dL 6.4 - 8.3 g/dL [facility] No Panel Informationon 06-12 Interpretation and review of laboratory results Normal [facility] PTH INTACTOrdered By: Marli Lizarraga on 06-12-2022 Interpretation and review of laboratory results Abnormal [facility] Parathyrin.intact [Mass/Vol] 79.7 pg/mL High 14.0 - 72.0 pg/mL [facility] URINALYSIS REFLEX TO CULTURE PERFORMABLEon 06-12-2022 Appearance (U) Clear Clear [facility] Bacteria LM Ql (Urine sed) ABSENT ABSENT [facility] Color (U) Yellow Yellow [facility] Epithelial cells.squamous LM Ql (Urine sed) 1/hpf = 1+ 1/hpf = 1+, 2-5/hpf = 2+, 0/hpf = 0+, ABSENT [facility] Glucose Test strip (U) [Mass/Vol] Negative Negative [facility] Interpretation and review of laboratory results Abnormal [facility] Ketones (U) [Mass/Vol] Trace Abnormal Negative [facility] Leukocyte esterase Test strip Ql (U) Small Abnormal Negative [facility] Nitrite Ql (U) Negative Negative [facility] pH (U) 5.5 [pH] 5.0 - 7.0 [facility] Protein (U) [Mass/Vol] 30 mg/dL Abnormal Negative [facility] RBC (U) [#/Vol] Trace Abnormal Negative [place] RBC LM.HPF (Urine sed) [#/Area] 0-2 0 - 2 /HPF [facility] Specific gravity (U) [Rel density] 1.[address] [facility] Urobilinogen (U) [Mass/Vol] 0.2 E.U./dL 0.2 E.U/dL, 1.0 E.U/dL [facility] WBC LM.HPF (Urine sed) [#/Area] 10-20 Abnormal 0 - 5 /HPF [facility] URINE PROTEIN/CREA RATIO, RA NDOMon 06-12-2022 Creatinine (24H U) [Mass/Vol] 231.68 mg/dL [facility] Protein Unsp time (U) [Mass/Vol] 49 mg/dL [facility] Protein/Creatinine (U) [Mass ratio] 0.211 mg/g [facility] FK506 (TACROLIMUS) WHOLE BLO ODon 06-09-2022 Tacrolimus (FK506), Blood 9.8 ng/mL Normal 2.0-20.0 [facility] Comment on above: Result Comment: Trou gh (immediately following transplant) 15.0 . Trough (steady state, 2 weeks or more after transplant): 3.0 - 8.0 . Performed by LC-MS/MS technology. Performed By: #### U RTPCR #### [facility] [address] [place] [address] Dr. Dwight Waters ALBUMINon 06-06-2022 Albumin [Mass/Vol] 3.8 g/dL Normal 3.4-5.0 [facility] Comment on above: Performed By: #### C MP #### [facility] [address] [address] [address] Dwight Waters ALKALINE PHOSPHAon ALP [Catalytic activity/Vol] 82 U/L Normal 46-116 [facility] Comment on above: Performed By: #### C MP #### [facility] [address] [address] [address] Dwight Waters BILIRUBIN CONJUGATED (DIRECT )on 06-06-2022 BILI, CONJUGATED 0.2 mg/dL Normal 0.0-0.2 [facility] Comment on above: Performed By: #### C BC #### [facility] [address] [place] [address] Dr. Dwight Waters BILIRUBIN TOTALon 06-06-2022 Bilirubin [Mass/Vol] 1.0 mg/dL Normal 0.2-1.0 [facility] Comment on above: Performed By: #### C BC #### [facility] [address] [place] [address] Dr. Dwight Waters BUNon 06-06-2022 Urea nitrogen [Mass/Vol] 18.0 mg/dL Normal 7.0-18.0 [facility] Comment on above: Performed By: #### C BC #### [facility] [address] [place] [address] Dr. Dwight Waters CALCIUMon 06-06-2022 Calcium [Mass/Vol] 9.4 mg/dL Normal 8.5-10.1 [facility] Comment on above: Performed By: #### C MP #### [facility] [address] [place] [address] Dr. Dwight Waters CBC AUTO DIFFon 06-06-2022 BASO # 0.1 103/ul Normal 0.0-0.1 [facility] Comment on above: Performed By: #### U RTPCR #### [facility] [address] [place] [address] Dr. Dwight Waters Basophils/100 WBC (Bld) 0.8 % Normal 0.2-2.0 [facility] Comment on above: Performed By: #### U RTPCR #### [facility] [address] [place] [address] Dr. Dwight Waters EO # 0.3 103/ul Normal 0.0-0.7 [facility] Comment on above: Performed By: #### U RTPCR #### [facility] [address] [place] [address] Dr. Dwight Waters Eosinophils/100 WBC (Bld) 3.3 % Normal 0.9-7.0 [facility] Comment on above: Performed By: #### U RTPCR #### [facility] [address] [address] [address] Dwight Waters Erythrocyte distribution width (RBC) [Ratio] 12.4 % Normal 11.0-15.0 [facility] Comment on above: Performed By: #### U RTPCR #### [facility] [address] [place] [address] Dr. Dwight Waters Hematocrit (Bld) [Volume fraction] 45.1 % Normal 42.0-54.0 [facility] Comment on above: Performed By: #### U RTPCR #### [facility] [address] [place] [address] Dr. Dwight Waters Hemoglobin (Bld) [Mass/Vol] 14.4 g/dL Normal 14.0-18.0 [facility] Comment on above: Performed By: #### U RTPCR #### [facility] [address] [place] [address] Dr. Dwight Waters IG # 0.01 10e3/ul Normal 0.00-0.03 [facility] Comment on above: Performed By: #### U RTPCR #### [facility] [address] [place] [address] Dr. Dwight Waters IG % 0.1 % Normal 0.0-0.5 [facility] Comment on above: Performed By: #### U RTPCR #### [facility] [address] [place] [address] Dr. Dwight Wtaers LYMPH # 2.2 103/ul Normal 1.2-3.8 [facility] Comment on above: Performed By: #### U RTPCR #### [facility] [address] [place] [address] Dr. Dwight Waters Lymphocytes/100 WBC (Bld) 30.0 % Normal 20.5-60.0 [facility] Comment on above: Performed By: #### U RTPCR #### [facility] [address] [place] [address] Dr. Dwight Waters MANUAL DIFF REQ NO Normal [facility] Comment on above: Performed By: #### U RTPCR #### [facility] [address] [place] [address] Dr. Dwight Waters MCH (RBC) [Entitic mass] 28.2 pg Normal 25.9-34.0 [facility] Comment on above: Performed By: #### U RTPCR #### [facility] [address] [place] [address] Dr. Dwight Waters MCHC (RBC) [Mass/Vol] 31.9 g/dL Normal 29.9-35.2 [facility] Comment on above: Performed By: #### U RTPCR #### [facility] [address] [place] [address] Dr. Dwight Waters MCV (RBC) [Entitic vol] 88.3 fL Normal 80.0-94.0 [facility] Comment on above: Performed By: #### U RTPCR #### [facility] [address] [place] [address] Dr. Dwight Waters MONO # 0.6 103/ul Normal 0.3-0.8 [facility] Comment on above: Performed By: #### U RTPCR #### [facility] [address] [place] [address] Dr. Dwight Waters Monocytes/100 WBC (Bld) 8.2 % Normal 1.7-12.0 [facility] Comment on above: Performed By: #### U RTPCR #### [facility] [address] [place] [address] Dr. Dwight Waters NEUT # 4.3 103/ul Normal 1.4-6.5 [facility] Comment on above: Performed By: #### U RTPCR #### [facility] [address] [place] [address] Dr. Dwight Waters Neutrophils/100 WBC (Bld) 57.6 % Normal 43.0-75.0 [facility] Comment on above: Performed By: #### U RTPCR #### [facility] [address] [place] [address] Dr. Dwight Waters Platelet mean volume (Bld) [Entitic vol] 9.7 fL Normal 9.5-13.5 [facility] Comment on above: Performed By: #### U RTPCR #### [facility] [address] [address] [address] Dwight Waters PLT 297 103/ul Normal 150-450 [facility] Comment on above: Performed By: #### U RTPCR #### [facility] [address] [address] [address] Dwight Waters RBC 5.11 106/ul Normal 4.70-6.10 [facility] Comment on above: Performed By: #### U RTPCR #### [facility] [address] [address] [address] Dwight Waters WBC 7.5 103/ul Normal 4.0-11.0 [facility] Comment on above: Performed By: #### U RTPCR #### [facility] [address] [place] [address] Dr. Dwight Waters CHLORIDEon 06-06-2022 Chloride [Moles/Vol] 107 mmol/L Normal 98-107 [facility] Comment on above: Performed By: #### C BC #### [facility] [address] [place] [address] Dr. Dwight Waters CO2on 06-06-2022 CO2 [Moles/Vol] 27.4 mmol/L Normal 21.0-32.0 [facility] Comment on above: Performed By: #### C BC #### [facility] [address] [place] [address] Dr. Dwight Waters CREATININEon 06-06-2022 Creatinine [Mass/Vol] 1.20 mg/dL Normal 0.70-1.30 [facility] Comment on above: Performed By: #### C BC #### [facility] [address] [place] [address] Dr. Dwight Waters EGFR-AF [place] >60 Normal >=60 [facility] Comment on above: Performed By: #### C BC #### [facility] [address] [place] [address] Dr. Dwight Waters EGFR-NON AF [place] >60 Normal >=60 [facility] Comment on above: Performed By: #### C BC #### [facility] [address] [place] [address] Dr. Dwight Waters GGTon 06-06-2022 Gamma glutamyl transferase [Catalytic activity/Vol] 29 U/L Normal 15-85 [facility] Comment on above: Performed By: #### C BC #### [facility] [address] [place] [address] Dr. Dwight Waters GLUCOSE BLOODon 06-06-2022 Glucose [Mass/Vol] 112 mg/dL Critically high 74-106 [facility] Comment on above: Performed By: #### C BC #### [facility] [address] [place] [address] Dr. Dwight Waters MAGNESIUMon 06-06-2022 Magnesium [Mass/Vol] 1.3 mg/dL Critically low 1.8-2.4 [facility] Comment on above: Performed By: #### C MP #### [facility] [address] [place] [address] Dr. Dwight Waters NAon 06-06-2022 Sodium [Moles/Vol] 141 mmol/L Normal 136-145 [facility] Comment on above: Performed By: #### C MP #### [facility] [address] [place] [address] Dr. Dwight Waters PHOSPHORUSon 06-06-2022 Phosphate [Mass/Vol] 3.1 mg/dL Normal 2.6-4.7 [facility] Comment on above: Performed By: #### C MP #### [facility] [address] [place] [address] Dr. Dwight Waters POTASSIUMon 06-06-2022 Potassium [Moles/Vol] 4.3 mmol/L Normal 3.5-5.1 [facility] Comment on above: Performed By: #### C BC #### [facility] [address] [place] [address] Dr. Dwight Waters SGOTon 06-06-2022 AST [Catalytic activity/Vol] 16 U/L Normal 15-37 [facility] Comment on above: Performed By: #### C BC #### [facility] [address] [place] [address] Dr. Dwight Waters [facility] 06-06-2022 ALT [Catalytic activity/Vol] 50 U/L Normal 16-63 [facility] Comment on above: Performed By: #### C BC #### [facility] [address] [address] [address] Dwight Waters Bacteria identified Cx Nom ( Bld)on 05-21-2022 Bacteria identified Cx Nom (Unsp spec) NO GROWTH DAY 5 OF [address] [facility] Results may be compromised due to volume of BACT\ALERT bottle exceeding 10mLs . The optimal blood volume is 8-10 mls per aerobic/anaerobic blood culture bottle. [facility] CALCIUMon 05-20-2022 Calcium [Mass/Vol] 9.1 mg/dL 8.6 - 10. 5 mg/dL [facility] CBC,PLATELETSon 05-20-2022 Erythrocyte distribution width (RBC) [Ratio] 12.5 % 10.9 - 14.3 % [facility] Hematocrit (Bld) [Volume fraction] 37.1 % Low 39.6 - 48.8 % [facility] Hemoglobin (Bld) [Mass/Vol] 12.3 g/dL Low 13.4 - 16.8 g/dL [facility] Interpretation and review of laboratory results Abnormal [facility] MCH (RBC) [Entitic mass] 28.9 pg 26.1 - 33.[address] [facility] MCHC (RBC) [Mass/Vol] 33.2 g/dL 31.9 - 36.5 g/dL [facility] MCV (RBC) [Entitic vol] 87.3 fL 79.0 - 94.[address] [facility] Platelet mean volume (Bld) [Entitic vol] 9.9 fL 8.7 - 12.[address] [facility] Platelets (Bld) [#/Vol] 234 10*3/uL 146 - 337 K/uL [facility] RBC (Bld) [#/Vol] 4.25 10*6/uL [facility] WBC (Bld) [#/Vol] 6.31 10*3/uL 3.73 - 10. 10 K/uL [facility] CHEM 7 (LYTES,BUN,CREA,GLUC) on 05-20-2022 Anion gap [Moles/Vol] 15 mmol/L 7 - 17 mmol/L [facility] Chloride [Moles/Vol] 111 mmol/L High 98 - 10 8 mmol/L [facility] CO2 [Moles/Vol] 22 mmol/L 21 - 31 mmol/L [facility] Creatinine [Mass/Vol] 1.10 mg/dL 0.70 - 1.30 mg/dL [facility] GFR/1.73 sq M.predicted CKD-EPI (S/P/Bld) [Vol rate/Area] 81 >=60 mL/min/1.73m2 [facility] Comment on above: Reported eGFR is bas ed on the CKD-EPI 2020 equation using creatinine, age, and sex. Glucose [Mass/Vol] 92 mg/dL 70 - 99 mg/dL [facility] Interpretation and review of laboratory results Abnormal [facility] Osmolality Calc [Osmolality] [address] [facility] Potassium [Moles/Vol] 4.4 mmol/L 3.5 - 5.0 mmol/L [facility] Sodium [Moles/Vol] 144 mmol/L 135 - 145 mmol/L [facility] Urea nitrogen [Mass/Vol] 18 mg/dL 7 - 25 mg/dL [facility] Urea nitrogen/Creatinine [Mass ratio] 16 mg/mg [facility] MAGNESIUMon 05-20-2022 Interpretation and review of laboratory results Abnormal [facility] Magnesium [Mass/Vol] 1.5 mg/dL Low 1.6 - 2 .6 mg/dL [facility] No Panel Informationon 05-20 Interpretation and review of laboratory results Normal [facility] PHOSPHATE, INORGANICon 05-20 Phosphate [Mass/Vol] 3.3 mg/dL 2.2 - 4 .6 mg/dL [facility] RF Unspecified body region V [...] projections of kidneys, ureters, and bladder. FINDINGS: [facility] images: [facility] radiographs of the abdomen reveal a nonobstructive [...] Contrast refluxes up the ureter to the [place] right kidney that is grossly normal appearing. [...] projections of kidneys, ureters, and bladder. FINDINGS: [facility] images: [place] [facility] radiographs of the abdomen reveal a nonobstructive [...] Contrast refluxes up the ureter to the [place] right kidney that is grossly normal appearing. [...] reviewed and approved this report. [facility] Radiology Study observation (narrative) [facility] RF Unspecified body region V iews during surgeryOrdered By: Lizz Campos on 05-20-[address] [facility] Work Phone: CALCIUMon 05-19-2022 Calcium [Mass/Vol] 9.2 mg/dL 8.6 - 10. 5 mg/dL [facility] Calcium [Mass/Vol] 8.6 mg/dL 8.6 - 10. 5 mg/dL [facility] CBC,PLATELETSon 05-19-2022 Erythrocyte distribution width (RBC) [Ratio] 12.4 % 10.9 - 14.3 % [facility] Hematocrit (Bld) [Volume fraction] 38.0 % Low 39.6 - 48.8 % [facility] Hemoglobin (Bld) [Mass/Vol] 12.0 g/dL Low 13.4 - 16.8 g/dL [facility] Interpretation and review of laboratory results Abnormal [facility] MCH (RBC) [Entitic mass] 28.6 pg 26.1 - 33.[address] [facility] MCHC (RBC) [Mass/Vol] 31.6 g/dL Low 31.9 - 36.5 g/dL [facility] MCV (RBC) [Entitic vol] 90.5 fL 79.0 - 94.[address] [facility] Platelet mean volume (Bld) [Entitic vol] 9.7 fL 8.7 - 12.[address] [facility] Platelets (Bld) [#/Vol] 199 10*3/uL 146 - 337 K/uL [facility] RBC (Bld) [#/Vol] 4.20 10*6/uL [facility] WBC (Bld) [#/Vol] 6.81 10*3/uL 3.73 - 10. 10 K/uL [facility] CHEM 7 (LYTES,BUN,CREA,GLUC) on 05-19-2022 Anion gap [Moles/Vol] 13 mmol/L 7 - 17 mmol/L [facility] Chloride [Moles/Vol] 105 mmol/L 98 - 10 8 mmol/L [facility] CO2 [Moles/Vol] 30 mmol/L 21 - 31 mmol/L [facility] Creatinine [Mass/Vol] 1.39 mg/dL High 0.70 - 1.30 mg/dL [facility] GFR/1.73 sq M.predicted CKD-EPI (S/P/Bld) [Vol rate/Area] 61 >=60 mL/min/1.73m2 [facility] Comment on above: Reported eGFR is bas ed on the CKD-EPI 2020 equation using creatinine, age, and sex. Glucose [Mass/Vol] 121 mg/dL High 70 - 99 mg/dL [facility] Interpretation and review of laboratory results Abnormal [facility] Osmolality Calc [Osmolality] 303 [facility] Potassium [Moles/Vol] 3.8 mmol/L 3.5 - 5.0 mmol/L [facility] Sodium [Moles/Vol] 144 mmol/L 135 - 145 mmol/L [facility] Urea nitrogen [Mass/Vol] 18 mg/dL 7 - 25 mg/dL [facility] Urea nitrogen/Creatinine [Mass ratio] 13 mg/mg [facility] Anion gap [Moles/Vol] 15 mmol/L 7 - 17 mmol/L [facility] Chloride [Moles/Vol] 106 mmol/L 98 - 10 8 mmol/L [facility] CO2 [Moles/Vol] 24 mmol/L 21 - 31 mmol/L [facility] Creatinine [Mass/Vol] 1.46 mg/dL High 0.70 - 1.30 mg/dL [facility] GFR/1.73 sq M.predicted CKD-EPI (S/P/Bld) [Vol rate/Area] 58 Low >=60 mL/min/1.73m2 [facility] Comment on above: Reported eGFR is bas ed on the CKD-EPI 2020 equation using creatinine, age, and sex. Glucose [Mass/Vol] 103 mg/dL High 70 - 99 mg/dL [facility] Interpretation and review of laboratory results Abnormal [facility] Osmolality Calc [Osmolality] 298 [facility] Potassium [Moles/Vol] 3.9 mmol/L 3.5 - 5.0 mmol/L [facility] Sodium [Moles/Vol] 141 mmol/L 135 - 145 mmol/L [facility] Urea nitrogen [Mass/Vol] 21 mg/dL 7 - 25 mg/dL [facility] Urea nitrogen/Creatinine [Mass ratio] 14 mg/mg [facility] MAGNESIUMon 05-19-2022 Magnesium [Mass/Vol] 2.0 mg/dL 1.6 - 2 .6 mg/dL [facility] Magnesium [Mass/Vol] 1.7 mg/dL 1.6 - 2 .6 mg/dL [facility] No Panel Informationon 05-19 Interpretation and review of laboratory results Normal [facility] Interpretation and review of laboratory results Normal [facility] PHOSPHATE, INORGANICon 05-19 Phosphate [Mass/Vol] 3.0 mg/dL 2.2 - 4 .6 mg/dL [facility] Phosphate [Mass/Vol] 2.7 mg/dL 2.2 - 4 .6 mg/dL [facility] CALCIUMon 05-18-2022 Calcium [Mass/Vol] 9.1 mg/dL 8.6 - 10. 5 mg/dL [facility] CBC,PLATELETSon 05-18-2022 Erythrocyte distribution width (RBC) [Ratio] 12.5 % 10.9 - 14.3 % [facility] Hematocrit (Bld) [Volume fraction] 37.3 % Low 39.6 - 48.8 % [facility] Hemoglobin (Bld) [Mass/Vol] 11.9 g/dL Low 13.4 - 16.8 g/dL [facility] Interpretation and review of laboratory results Abnormal [facility] MCH (RBC) [Entitic mass] 28.9 pg 26.1 - 33.[address] [facility] MCHC (RBC) [Mass/Vol] 31.9 g/dL 31.9 - 36.5 g/dL [facility] MCV (RBC) [Entitic vol] 90.5 fL 79.0 - 94.[address] [facility] Platelet mean volume (Bld) [Entitic vol] 10.1 fL 8.7 - 12.[address] [facility] Platelets (Bld) [#/Vol] 189 10*3/uL 146 - 337 K/uL [facility] RBC (Bld) [#/Vol] 4.12 10*6/uL [facility] WBC (Bld) [#/Vol] 10.19 10*3/uL High 3.73 - 10 .10 K/uL [facility] 7 (LYTES,BUN,CREA,GLUC) on 05-18-2022 Anion gap [Moles/Vol] 13 mmol/L 7 - 17 mmol/L [facility] Chloride [Moles/Vol] 102 mmol/L 98 - 10 8 mmol/L [facility] CO2 [Moles/Vol] 26 mmol/L 21 - 31 mmol/L [facility] Creatinine [Mass/Vol] 1.91 mg/dL High 0.70 - 1.30 mg/dL [facility] GFR/1.73 sq M.predicted CKD-EPI (S/P/Bld) [Vol rate/Area] 42 Low >=60 mL/min/1.73m2 [facility] Comment on above: Reported eGFR is bas ed on the CKD-EPI 2020 equation using creatinine, age, and sex. Glucose [Mass/Vol] 158 mg/dL High 70 - 99 mg/dL [facility] Osmolality Calc [Osmolality] 297 [facility] Potassium [Moles/Vol] 4.0 mmol/L 3.5 - 5.0 mmol/L [facility] Sodium [Moles/Vol] 137 mmol/L 135 - 145 mmol/L [facility] Urea nitrogen [Mass/Vol] 30 mg/dL High 7 - 25 mg/dL [facility] Urea nitrogen/Creatinine [Mass ratio] 16 mg/mg [facility] CHEM 7 (LYTES,BUN,CREA,GLUC) Ordered By: Tamiko Thapa on 05-18-2022 Anion gap [Moles/Vol] 13 mmol/L 7 - 17 mmol/L [facility] Chloride [Moles/Vol] 104 mmol/L 98 - 10 8 mmol/L [facility] CO2 [Moles/Vol] 26 mmol/L 21 - 31 mmol/L [facility] Creatinine [Mass/Vol] 2.96 mg/dL High 0.70 - 1.30 mg/dL [facility] GFR/1.73 sq M.predicted CKD-EPI (S/P/Bld) [Vol rate/Area] 25 Low >=60 mL/min/1.73m2 [facility] Comment on above: Reported eGFR is bas ed on the CKD-EPI 2020 equation using creatinine, age, and sex. Glucose [Mass/Vol] 136 mg/dL High 70 - 99 mg/dL [facility] Interpretation and review of laboratory results Abnormal [facility] Osmolality Calc [Osmolality] 304 [facility] Potassium [Moles/Vol] 4.2 mmol/L 3.5 - 5.0 mmol/L [facility] Sodium [Moles/Vol] 139 mmol/L 135 - 145 mmol/L [facility] Urea nitrogen [Mass/Vol] 41 mg/dL High 7 - 25 mg/dL [facility] Urea nitrogen/Creatinine [Mass ratio] 14 mg/mg [facility] MAGNESIUMon 05-18-2022 Magnesium [Mass/Vol] 2.2 mg/dL 1.6 - 2 .6 mg/dL [facility] Interpretation and review of laboratory results Normal [facility] Magnesium [Mass/Vol] 1.7 mg/dL 1.6 - 2 .6 mg/dL [facility] No Panel Informationon 05-18 Interpretation and review of laboratory results Abnormal [facility] Interpretation and review of laboratory results Normal [facility] PHOSPHATE, INORGANICon 05-18 Phosphate [Mass/Vol] 2.0 mg/dL Low 2.2 - 4 .6 mg/dL [facility] Interpretation and review of laboratory results Normal [facility] Phosphate [Mass/Vol] 2.8 mg/dL 2.2 - 4 .6 mg/dL [facility] PT,INR,PTTon 05-18-2022 aPTT Coag (PPP) [Time] 31.0 s [facility] INR Coag (Bld) [Relative time] 1.1 {INR} [facility] Interpretation and review of laboratory results Abnormal [facility] PT Coag (PPP) [Time] 14.4 s High [facility] URINE CULTUREOrdered By: Sylvia Campos on 05-18-2022 Bacteria identified Cx Nom (Unsp spec) No Growth [facility] CBC,PLATELETSon 05-17-2022 Erythrocyte distribution width (RBC) [Ratio] 12.8 % 10.9 - 14.3 % [facility] Hematocrit (Bld) [Volume fraction] 42.8 % 39.6 - 48.8 % [facility] Hemoglobin (Bld) [Mass/Vol] 13.3 g/dL Low 13.4 - 16.8 g/dL [facility] Interpretation and review of laboratory results Abnormal [facility] MCH (RBC) [Entitic mass] 28.9 pg 26.1 - 33.[address] [facility] MCHC (RBC) [Mass/Vol] 31.1 g/dL Low 31.9 - 36.5 g/dL [facility] MCV (RBC) [Entitic vol] 92.8 fL 79.0 - 94.[address] [facility] Platelet mean volume (Bld) [Entitic vol] 10.3 fL 8.7 - 12.[address] [facility] Platelets (Bld) [#/Vol] 188 10*3/uL 146 - 337 K/uL [facility] RBC (Bld) [#/Vol] 4.61 10*6/uL [facility] WBC (Bld) [#/Vol] 16.61 10*3/uL High 3.73 - 10 .10 K/uL [facility] CHEM 7 (LYTES,BUN,CREA,GLUC) Ordered By: Kaylah Mc on 05-17-2022 Anion gap [Moles/Vol] 15 mmol/L 7 - 17 mmol/L [facility] Chloride [Moles/Vol] 103 mmol/L 98 - 10 8 mmol/L [facility] CO2 [Moles/Vol] 23 mmol/L 21 - 31 mmol/L [facility] Creatinine [Mass/Vol] 5.95 mg/dL High 0.70 - 1.30 mg/dL [facility] GFR/1.73 sq M.predicted CKD-EPI (S/P/Bld) [Vol rate/Area] 11 Low >=60 mL/min/1.73m2 [facility] Comment on above: Reported eGFR is bas ed on the CKD-EPI 2020 equation using creatinine, age, and sex. Glucose [Mass/Vol] 165 mg/dL High 70 - 99 mg/dL [facility] Interpretation and review of laboratory results Abnormal [facility] Osmolality Calc [Osmolality] [address] [facility] Potassium [Moles/Vol] 4.6 mmol/L 3.5 - 5.0 mmol/L [facility] Sodium [Moles/Vol] 136 mmol/L 135 - 145 mmol/L [facility] Urea nitrogen [Mass/Vol] 52 mg/dL High 7 - 25 mg/dL [facility] Urea nitrogen/Creatinine [Mass ratio] 9 mg/mg [facility] CHEM 7 (LYTES,BUN,CREA,GLUC) Ordered By: Kehinde Gutierrez on 05-17-2022 Anion gap [Moles/Vol] 24 mmol/L High 7 - 17 mmol/L [facility] Chloride [Moles/Vol] 100 mmol/L 98 - 10 8 mmol/L [facility] CO2 [Moles/Vol] 16 mmol/L Low 21 - 31 mmol/L [facility] Creatinine [Mass/Vol] 8.08 mg/dL High 0.70 - 1.30 mg/dL [facility] GFR/1.73 sq M.predicted CKD-EPI (S/P/Bld) [Vol rate/Area] 7 Low >=60 mL/min/1.73m2 [facility] Comment on above: Reported eGFR is bas ed on the CKD-EPI 2020 equation using creatinine, age, and sex. Glucose [Mass/Vol] 164 mg/dL High 70 - 99 mg/dL [facility] Interpretation and review of laboratory results Abnormal [facility] Osmolality Calc [Osmolality] [address] [facility] Potassium [Moles/Vol] 5.0 mmol/L 3.5 - 5.0 mmol/L [facility] Sodium [Moles/Vol] 135 mmol/L 135 - 145 mmol/L [facility] Urea nitrogen [Mass/Vol] 56 mg/dL High 7 - 25 mg/dL [facility] Urea nitrogen/Creatinine [Mass ratio] 7 mg/mg [facility] LAVENDER TOP TUBEon 05-17-[address] [facility] MAGNESIUMon 05-17-2022 Interpretation and review of laboratory results Normal [facility] Magnesium [Mass/Vol] 1.8 mg/dL 1.6 - 2 .6 mg/dL [facility] Interpretation and review of laboratory results Normal [facility] Magnesium [Mass/Vol] 1.6 mg/dL 1.6 - 2 .6 mg/dL [facility] No Panel Informationon 05-[address] [facility] PHOSPHATE, INORGANICon 05-17 Interpretation and review of laboratory results Abnormal [facility] Phosphate [Mass/Vol] 4.9 mg/dL High 2.2 - 4 .6 mg/dL [facility] PT,INR,PTTon 05-17-2022 aPTT Coag (PPP) [Time] 33.0 s OS [facility] INR Coag (Bld) [Relative time] 1.3 {INR} High [facility] Interpretation and review of laboratory results Abnormal [facility] PT Coag (PPP) [Time] 15.7 s High [facility] Portable XR Chest Viewson IMPRESSION: No [...] IMPRESSION IMPRESSION: No acute findings. [facility] Radiology Study observation (narrative) [facility] Portable XR Chest ViewsOrder ed By: David Sanz on 05-17-[address] [facility] Work Phone: URINALYSISOrdered By: Michael patel Ma on 05-17-2022 Appearance (U) Cloudy Abnormal Clear [facility] Comment on above: Results may be inacc urate due to color interference. Clinical correlation recommended. Bacteria LM Ql (Urine sed) ABSENT ABSENT [facility] Color (U) Red Abnormal Yellow [facility] Comment on above: Results may be inacc urate due to color interference. Clinical correlation recommended. Epithelial cells.squamous LM Ql (Urine sed) ABSENT 1/hpf = 1+, 2-5/hpf = 2+, 0/hpf = 0+, ABSENT [facility] Glucose Test strip (U) [Mass/Vol] Negative Negative [facility] Comment on above: Results may be inacc urate due to color interference. Clinical correlation recommended. Interpretation and review of laboratory results Abnormal [facility] Ketones (U) [Mass/Vol] Trace Abnormal Negative OS [facility] Comment on above: Results may be inacc urate due to color interference. Clinical correlation recommended. Leukocyte esterase Test strip Ql (U) Large Abnormal Negative [facility] Comment on above: Results may be inacc urate due to color interference. Clinical correlation recommended. Nitrite Ql (U) Negative Negative [facility] Comment on above: Results may be inacc urate due to color interference. Clinical correlation recommended. pH (U) 5.0 [pH] 5.0 - 7.[address] [facility] Comment on above: Results may be inacc urate due to color interference. Clinical correlation recommended. Protein (U) [Mass/Vol] mg/dL Abnormal Negative [facility] Comment on above: Results may be inacc urate due to color interference. Clinical correlation recommended. RBC (U) [#/Vol] Large Abnormal Negative [facility] Comment on above: Results may be inacc urate due to color interference. Clinical correlation recommended. RBC LM.HPF (Urine sed) [#/Area] /[HPF] Abnormal 0 - 2 /HPF [facility] Specific gravity (U) [Rel density] 1.[address] [facility] Comment on above: Results may be inacc urate due to color interference. Clinical correlation recommended. Urobilinogen (U) [Mass/Vol] 0.2 E.U./dL 0.2 E.U/dL, 1.0 E.U/dL [facility] Comment on above: Results may be inacc urate due to color interference. Clinical correlation recommended. WBC LM.HPF (Urine sed) [#/Area] /[HPF] Abnormal 0 - 5 /HPF [facility] URINE CULTUREOrdered By: Tyler Tiwari on 05-17-2022 Bacteria identified Cx Nom (Unsp spec) No Growth [facility] CBC,PLATELETSon 05-16-2022 Erythrocyte distribution width (RBC) [Ratio] 12.9 % 10.9 - 14.3 % [facility] Hematocrit (Bld) [Volume fraction] 46.5 % 39.6 - 48.8 % [facility] Hemoglobin (Bld) [Mass/Vol] 14.7 g/dL 13.4 - 16.8 g/dL [facility] Interpretation and review of laboratory results Abnormal [facility] MCH (RBC) [Entitic mass] 28.3 pg 26.1 - 33.[address] [facility] MCHC (RBC) [Mass/Vol] 31.6 g/dL Low 31.9 - 36.5 g/dL [facility] MCV (RBC) [Entitic vol] 89.6 fL 79.0 - 94.[address] [facility] Platelet mean volume (Bld) [Entitic vol] 10.3 fL 8.7 - 12.[address] [facility] Platelets (Bld) [#/Vol] 188 10*3/uL 146 - 337 K/uL [facility] RBC (Bld) [#/Vol] 5.19 10*6/uL [facility] WBC (Bld) [#/Vol] 12.55 10*3/uL High 3.73 - 10 .10 K/uL [facility] CHEM 7 (LYTES,BUN,CREA,GLUC) Ordered By: Alma Pena on 05-16-2022 Anion gap [Moles/Vol] 14 mmol/L 7 - 17 mmol/L [facility] Chloride [Moles/Vol] 103 mmol/L 98 - 10 8 mmol/L [facility] CO2 [Moles/Vol] 22 mmol/L 21 - 31 mmol/L [facility] Creatinine [Mass/Vol] 6.09 mg/dL High 0.70 - 1.30 mg/dL [facility] GFR/1.73 sq M.predicted CKD-EPI (S/P/Bld) [Vol rate/Area] 10 Low >=60 mL/min/1.73m2 [facility] Comment on above: Reported eGFR is bas ed on the CKD-EPI 2020 equation using creatinine, age, and sex. Glucose [Mass/Vol] 134 mg/dL High 70 - 99 mg/dL [facility] Interpretation and review of laboratory results Abnormal [facility] Osmolality Calc [Osmolality] [address] [facility] Potassium [Moles/Vol] 4.9 mmol/L 3.5 - 5.0 mmol/L [facility] Sodium [Moles/Vol] 134 mmol/L Low 135 - 145 mmol/L [facility] Comment on above: Results inconsistent with previous results Urea nitrogen [Mass/Vol] 49 mg/dL High 7 - 25 mg/dL [facility] Urea nitrogen/Creatinine [Mass ratio] 8 mg[facility] 7 (LYTES,BUN,CREA,GLUC) on 05-16-2022 Anion gap [Moles/Vol] 17 mmol/L 7 - 17 mmol/L [facility] Chloride [Moles/Vol] 106 mmol/L 98 - 10 8 mmol/L [facility] CO2 [Moles/Vol] 22 mmol/L 21 - 31 mmol/L [facility] Creatinine [Mass/Vol] 5.23 mg/dL High 0.70 - 1.30 mg/dL [facility] GFR/1.73 sq M.predicted CKD-EPI (S/P/Bld) [Vol rate/Area] 13 Low >=60 mL/min/1.73m2 [facility] Comment on above: Reported eGFR is bas ed on the CKD-EPI 2020 equation using creatinine, age, and sex. Glucose [Mass/Vol] 116 mg/dL High 70 - 99 mg/dL [facility] Interpretation and review of laboratory results Abnormal [facility] Osmolality Calc [Osmolality] [address] [facility] Potassium [Moles/Vol] 4.6 mmol/L 3.5 - 5.0 mmol/L [facility] Sodium [Moles/Vol] 140 mmol/L 135 - 145 mmol/L [facility] Urea nitrogen [Mass/Vol] 42 mg/dL High 7 - 25 mg/dL [facility] Urea nitrogen/Creatinine [Mass ratio] 8 mg/mg [facility] EXTRA MICROon 05-16-[address] [facility] LT BLUE TOP TUBEon [address] [facility] LYTES (NA, K, CL) - URINE - RANDOMon 05-16-2022 Chloride (24H U) [Moles/Vol] 68 mmol/L [facility] Potassium (24H U) [Moles/Vol] 36.7 mmol/L [facility] Sodium (24H U) [Moles/Vol] 55 mmol/L [facility] The reference range has not been established for random urine specimens. The test result should be integrated into the clinical context for interpretation. [facility] MAGNESIUMon 05-16-2022 Interpretation and review of laboratory results Normal [facility] Magnesium [Mass/Vol] 1.7 mg/dL 1.6 - 2 .6 mg/dL [facility] NOVEL CORONAVIRUS PCROrdered By: Edson Candelario on 05-16-2022 SARS-CoV-2 (COVID-19) RNA ESTELITA+probe Ql (Unsp spec) Not detected NOT DETECTED [facility] Comment on above: [facility] Negative results do [...] for use by authorized laboratories. [facility] No Panel Informationon 05-16 [facility] OSMOLALITY, URINEon 05-16-20 Interpretation and review of laboratory results Normal [facility] Osmolality (U) [Osmolality] 320 mosm/kg [facility] The reference range has not been established for random urine specimens. The test result should be integrated into the clinical context for interpretation. [facility] PROCALCITONINon 05-16-2022 Interpretation and review of laboratory results Normal [facility] Procalcitonin [Mass/Vol] 0.18 ng/mL <0.[address] [facility] Comment on above: Procalcitonin is [...] and trend procalcitonin in various clinical settings. [email or web address] Two common cutoffs associated with bacterial infections are as follows. Respiratory tract infections: >0.25 ng/mL Sepsis/septic shock: >0.5 ng/mL Procalcitonin should not be used alone as a diagnostic tool, however. All procalcitonin results should be interpreted in association with the patients clinical condition and all laboratory findings. [facility] PT,INR,PTTon 05-16-2022 aPTT Coag (PPP) [Time] 30.3 s [facility] INR Coag (Bld) [Relative time] 1.1 {INR} [facility] Interpretation and review of laboratory results Normal [facility] PT Coag (PPP) [Time] 14.1 s [facility] SARS-CoV-2 (COVID-19) RNA NA A+probe Ql (Unsp spec)Ordered By: Edson Candelario on 05-16-2022 Interpretation and review of laboratory results Normal [facility] TACROLIMUS LEVEL, TROUGH (MI E DRUG LEVEL)Ordered By: Mariama Nick on 05-16-2022 Interpretation and review of laboratory results Normal [facility] Tacrolimus (Bld) [Mass/Vol] 4.1 ng/mL Bone Marrow Transplant: 4.0-12.0, Therapeutic: 5.0-15.[address] [facility] Method performed is a chemiluminescent microparticle immunoasssay on the [employer] i2000. The range is based on experience at [facility] and users should be aware that target concentrations vary widely depending on concomitant therapy, time post-transplant, and desired degree of immunosuppression. [facility] URINE PROTEIN/CREA RATIO, RA Smiley 05-16-2022 Creatinine (24H U) [Mass/Vol] 59.82 mg/dL [facility] Protein Unsp time (U) [Mass/Vol] 111 mg/dL [facility] Protein/Creatinine (U) [Mass ratio] 1.856 mg/g [facility] US for transplanted kidney amber sánchez [...] flow in the transplant kidney. [facility] Radiology Study observation (narrative) [facility] US for transplanted kidney l imitedOrdered By: Rosendo Matute on 05-16-[address] [facility] Work Phone: CBC AND ELECTRONIC DIFFon Basophils (Bld) [#/Vol] 10*3/uL 0.00 - 0.09 K/uL [facility] Basophils/100 WBC (Bld) 0.2 % [facility] Differential cell count method Nom (Bld) Electronic Differential [facility] Eosinophils (Bld) [#/Vol] 10*3/uL 0.00 - 0.48 K/uL [facility] Eosinophils/100 WBC (Bld) 0.0 % [facility] Erythrocyte distribution width (RBC) [Ratio] 12.8 % 10.9 - 14.3 % [facility] Hematocrit (Bld) [Volume fraction] 46.0 % 39.6 - 48.8 % [facility] Hemoglobin (Bld) [Mass/Vol] 14.6 g/dL 13.4 - 16.8 g/dL [facility] Immature granulocytes (Bld) [#/Vol] 0.07 10*3/uL <=0.[address] [facility] Immature granulocytes/100 WBC (Bld) 0.4 % [facility] Interpretation and review of laboratory results Abnormal [facility] Lymphocytes (Bld) [#/Vol] 1.49 10*3/uL 0.83 - 3.57 K/uL [facility] Lymphocytes/100 WBC (Bld) 9.4 % [facility] MCH (RBC) [Entitic mass] 28.2 pg 26.1 - 33.[address] [facility] MCHC (RBC) [Mass/Vol] 31.7 g/dL Low 31.9 - 36.5 g/dL [facility] MCV (RBC) [Entitic vol] 89.0 fL 79.0 - 94.[address] [facility] Monocytes (Bld) [#/Vol] 1.45 10*3/uL High 0.24 - 0.93 K/uL [facility] Monocytes/100 WBC (Bld) 9.2 % [facility] Neutrophils (Bld) [#/Vol] 12.77 10*3/uL High 1.57 - 6.19 K/uL [facility] Nucleated RBC/100 WBC (Bld) [Ratio] 0.0 % <=0.2 /[address] [facility] Platelet mean volume (Bld) [Entitic vol] 9.9 fL 8.7 - 12.[address] [facility] Platelets (Bld) [#/Vol] 250 10*3/uL 146 - 337 K/uL [facility] RBC (Bld) [#/Vol] 5.17 10*6/uL [facility] Segmented neutrophils/100 WBC (Bld) 80.8 % [facility] WBC (Bld) [#/Vol] 15.81 10*3/uL High 3.73 - 10 .10 K/uL [facility] CBC AUTO DIFFon 05-15-2022 BASO # 0.0 103/ul Normal 0.0-0.1 [facility] Comment on above: Performed By: #### C BC #### [facility] [address] [place] [address] Dr. Dwight Waters Basophils/100 WBC (Bld) 0.3 % Normal 0.2-2.0 [facility] Comment on above: Performed By: #### C BC #### [facility] [address] [address] [address] Dwigth Waters EO # 0.1 103/ul Normal 0.0-0.7 [facility] Comment on above: Performed By: #### C BC #### [facility] [address] [place] [address] Dr. Dwight Waters Eosinophils/100 WBC (Bld) 0.8 % Critically low 0.9-7.0 [facility] Comment on above: Performed By: #### C BC #### [facility] [address] [place] [address] Dr. Dwight Waters Erythrocyte distribution width (RBC) [Ratio] 12.7 % Normal 11.0-15.0 [facility] Comment on above: Performed By: #### C BC #### [facility] [address] [place] [address] Dr. Dwight Waters Hematocrit (Bld) [Volume fraction] 43.5 % Normal 42.0-54.0 [facility] Comment on above: Performed By: #### C BC #### [facility] [address] [place] [address] Dr. Dwight Waters Hemoglobin (Bld) [Mass/Vol] 14.4 g/dL Normal 14.0-18.0 [facility] Comment on above: Performed By: #### C BC #### [facility] [address] [place] [address] Dr. Dwight Waters IG # 0.02 10e3/ul Normal 0.00-0.03 [facility] Comment on above: Performed By: #### C BC #### [facility] [address] [place] [address] Dr. Dwight Waters IG % 0.2 % Normal 0.0-0.5 [facility] Comment on above: Performed By: #### C BC #### [facility] [address] [place] [address] Dr. Dwight Waters LYMPH # 1.5 103/ul Normal 1.2-3.8 [facility] Comment on above: Performed By: #### C BC #### [facility] [address] [place] [address] Dr. Dwight Waters Lymphocytes/100 WBC (Bld) 12.5 % Critically low 20.5-60.0 [facility] Comment on above: Performed By: #### C BC #### [facility] [address] [place] [address] Dr. Dwight Waters MANUAL DIFF REQ NO Normal [facility] Comment on above: Performed By: #### C BC #### [facility] [address] [address] [address] Dwight Waters MCH (RBC) [Entitic mass] 28.6 pg Normal 25.9-34.0 [facility] Comment on above: Performed By: #### C BC #### [facility] [address] [place] [address] Dr. Dwight Waters MCHC (RBC) [Mass/Vol] 33.1 g/dL Normal 29.9-35.2 [facility] Comment on above: Performed By: #### C BC #### [facility] [address] [address] [address] Dwight Waters MCV (RBC) [Entitic vol] 86.3 fL Normal 80.0-94.0 [facility] Comment on above: Performed By: #### C BC #### [facility] [address] [place] [address] Dr. Dwight Waters MONO # 1.0 103/ul Critically high 0.3-0.8 [facility] Comment on above: Performed By: #### C BC #### [facility] [address] [place] [address] Dr. Dwight Waters Monocytes/100 WBC (Bld) 8.2 % Normal 1.7-12.0 [facility] Comment on above: Performed By: #### C BC #### [facility] [address] [place] [address] Dr. Dwight Waters NEUT # 9.1 103/ul Critically high 1.4-6.5 [facility] Comment on above: Performed By: #### C BC #### [facility] [address] [place] [address] Dr. Dwight Waters Neutrophils/100 WBC (Bld) 78.0 % Critically high 43.0-75.0 [facility] Comment on above: Performed By: #### C BC #### [facility] [address] [place] [address] Dr. Dwight Waters Platelet mean volume (Bld) [Entitic vol] 9.8 fL Normal 9.5-13.5 [facility] Comment on above: Performed By: #### C BC #### [facility] [address] [place], [place] [address] Dr. Dwight Waters PLT 251 103/ul Normal 150-450 [facility] Comment on above: Performed By: #### C BC #### [facility] [address] [place], [place] [address] Dr[address] Dwight Waters RBC 5.04 106/ul Normal 4.70-6.10 [facility] Comment on above: Performed By: #### C BC #### [facility] [address] [place], [place] [address] Dr[address] Dwight Waters WBC 11.6 103/ul Critically high 4.0-11.0 [facility] Comment on above: Performed By: #### C BC #### [facility] [address] [address] [address] Dwight Waters CHEM 6 (LYTES, BUN CREA)on 0 05-15-2022 Anion gap [Moles/Vol] 12 mmol/L 7 - 17 mmol/L [facility] Chloride [Moles/Vol] 105 mmol/L 98 - 10 8 mmol/L [facility] CO2 [Moles/Vol] 26 mmol/L 21 - 31 mmol/L [facility] Creatinine [Mass/Vol] 2.85 mg/dL High 0.70 - 1.30 mg/dL [facility] GFR/1.73 sq M.predicted CKD-EPI (S/P/Bld) [Vol rate/Area] 26 Low >=60 mL/min/1.73m2 [facility] Comment on above: Reported eGFR is bas ed on the CKD-EPI 2020 equation using creatinine, age, and sex. Potassium [Moles/Vol] 4.6 mmol/L 3.5 - 5.0 mmol/L [facility] Sodium [Moles/Vol] 138 mmol/L 135 - 145 mmol/L [facility] Urea nitrogen [Mass/Vol] 32 mg/dL High 7 - 25 mg/dL [facility] Urea nitrogen/Creatinine [Mass ratio] 11 mg/mg [facility] CT ABD/PELVIS WO CONon 05-15 CT [...] transplanted kidney with moderate right-sided hydronephrosis. Atrophic [place] kidneys with moderate right-sided hydronephrosis. Multiple nonobstructive [...] transplanted kidney with moderate right-sided hydronephrosis. Atrophic [place] kidneys with moderate right-sided hydronephrosis. Multiple nonobstructive right renal calculi measuring up to 8 mm. FOLLOW-UP: Follow-up as clinically indicated. Electronically authenticated by: LYNDSAY JEAN Date: 2022-05-15 05:04 Normal [facility] Covid-19 PCR (CVDTB)on 04-30 SARS-CoV-2 (COVID-19) [...] for this test is supported by the Automation Technician of Health and Human Service's declaration [...] #### [facility] [address] [place] [address] Dr. Dwight Waters GLUCOSEon 05-15-2022 Glucose [Mass/Vol] 141 mg/dL High 70 - 99 mg/dL [facility] GOLD TOP TUBEon 05-15-[address] [facility] HEPATIC FUNCTION PANELon Albumin [Mass/Vol] 4.3 g/dL 3.5 - 5.0 g/dL [facility] ALP [Catalytic activity/Vol] 85 U/L 32 - 126 U/L [facility] ALT [Catalytic activity/Vol] 13 U/L 10 - 52 U/L [facility] AST [Catalytic activity/Vol] 15 U/L 10 - 39 U/L [facility] Bilirubin [Mass/Vol] 0.8 mg/dL <1.[address] [facility] Bilirubin.direct [Mass/Vol] 0.2 mg/dL <0.[address] [facility] Interpretation and review of laboratory results Normal [facility] Protein [Mass/Vol] 7.3 g/dL 6.4 - 8.3 g/dL [facility] LIPASEon 05-15-2022 Lipase [Catalytic activity/Vol] 8 U/L Low 11 - 82 U/L [facility] No Panel Informationon 05-15 Interpretation and review of laboratory results Abnormal [facility] PROF 14(COMP METB)on 022 Albumin [Mass/Vol] 3.8 g/dL Normal 3.4-5.0 [facility] Comment on above: Performed By: #### U RTPCR #### [facility] [address] [place] [address] Dr. Dwight Waters Albumin/Globulin [Mass ratio] 1.1 {ratio} Normal [facility] Comment on above: Performed By: #### U RTPCR #### [facility] [address] [address] [address] Dwight Waters ALP [Catalytic activity/Vol] 92 U/L Normal 46-116 [facility] Comment on above: Performed By: #### U RTPCR #### [facility] [address] [place] [address] Dr. Dwight Waters ALT [Catalytic activity/Vol] 25 U/L Normal 16-63 [facility] Comment on above: Performed By: #### U RTPCR #### [facility] [address] [place] [address] Dr. Dwight Waters Anion gap [Moles/Vol] 14.6 mmol/L Normal [facility] Comment on above: Performed By: #### U RTPCR #### [facility] [address] [place] [address] Dr. Dwight Waters AST [Catalytic activity/Vol] 17 U/L Normal 15-37 [facility] Comment on above: Performed By: #### U RTPCR #### [facility] [address] [place] [address] Dr. Dwight Waters Bilirubin [Mass/Vol] 0.6 mg/dL Normal 0.2-1.0 [facility] Comment on above: Performed By: #### U RTPCR #### [facility] [address] [place] [address] Dr. Dwight Waters Calcium [Mass/Vol] 9.9 mg/dL Normal 8.5-10.1 [facility] Comment on above: Performed By: #### U RTPCR #### [facility] [address] [place] [address] Dr. Dwight Waters Chloride [Moles/Vol] 106 mmol/L Normal 98-107 [facility] Comment on above: Performed By: #### U RTPCR #### [facility] [address] [place] [address] Dr. Dwight Waters CO2 [Moles/Vol] 24.2 mmol/L Normal 21.0-32.0 [facility] Comment on above: Performed By: #### U RTPCR #### [facility] [address] [address] [address] Dwight Waters Creatinine [Mass/Vol] 1.58 mg/dL Critically high 0.70-1.30 [facility] Comment on above: Performed By: #### U RTPCR #### [facility] [address] [address] [address] Dwight Waters EGFR-AF [place] 56 mL/min/1.73m2 Critically low >=60 [facility] Comment on above: Performed By: #### U RTPCR #### [facility] [address] [address] [address] Dwight Waters EGFR-NON AF [place] 46 mL/min/1.73m2 Critically low >=60 [facility] Comment on above: Performed By: #### U RTPCR #### [facility] [address] [address] [address] Dwight Waters Globulin (S) [Mass/Vol] 3.5 g/dL Normal [facility] Comment on above: Performed By: #### U RTPCR #### [facility] [address] [address] [address] Dwight Waters Glucose [Mass/Vol] 162 mg/dL Critically high 74-106 T [facility] Comment on above: Performed By: #### U RTPCR #### [facility] [address] [address] [address] Dwight Waters Potassium [Moles/Vol] 3.8 mmol/L Normal 3.5-5.1 [facility] Comment on above: Performed By: #### U RTPCR #### [facility] [address] [address] [address] Dwight Waters Protein [Mass/Vol] 7.3 g/dL Normal 6.4-8.2 [facility] Comment on above: Performed By: #### U RTPCR #### [facility] [address] [address] [address] Dwight Waters Sodium [Moles/Vol] 141 mmol/L Normal 136-145 [facility] Comment on above: Performed By: #### U RTPCR #### [facility] [address] [address] [address] Dwight Waters Urea nitrogen [Mass/Vol] 22.0 mg/dL Critically high 7.0-18.0 [facility] Comment on above: Performed By: #### U RTPCR #### [facility] [address] [address] [address] Dwight Waters Urea nitrogen/Creatinine [Mass ratio] 13.9 mg/mg Normal [facility] Comment on above: Performed By: #### U RTPCR #### [facility] [address] [address] [address] Dwight Waters Portable XR Chest Viewson [...] IMPRESSION: No acute cardiopulmonary disease [facility] Radiology Study observation (narrative) [facility] Portable XR Chest ViewsOrder ed By: Vladislav Omer on 05-15-[address] [facility] URINE DIPSTICK; REFLEX MICRO SCOPY; REFLEX CULTURE PERFORMABLEon 05-15-2022 Appearance (U) Clear Clear [facility] Color (U) Yellow Yellow [facility] Glucose Test strip (U) [Mass/Vol] 100 mg/dL Abnormal Negative [facility] Interpretation and review of laboratory results Abnormal [facility] Ketones (U) [Mass/Vol] Negative Negative [facility] Leukocyte esterase Test strip Ql (U) Large Abnormal Negative [facility] Nitrite Ql (U) Negative Negative [facility] pH (U) 6.0 [pH] 5.0 - 7.0 [facility] Protein (U) [Mass/Vol] 100 mg/dL Abnormal Negative [facility] RBC (U) [#/Vol] Large Abnormal Negative [facility] Specific gravity (U) [Rel density] 1.[address] [facility] Urobilinogen (U) [Mass/Vol] 0.2 E.U./dL 0.2 E.U/dL, 1.0 E.U/dL [facility] URINE MICROSCOPIC WITH REFLE X TO CULTUREOrdered By: Rey Bro on 05-15-2022 Bacteria LM Ql (Urine sed) ABSENT ABSENT [facility] Epithelial cells.squamous LM Ql (Urine sed) ABSENT 1/hpf = 1+, 2-5/hpf = 2+, 0/hpf = 0+, ABSENT [facility] Interpretation and review of laboratory results Abnormal [facility] RBC LM.HPF (Urine sed) [#/Area] /[HPF] Abnormal 0 - 2 /HPF [facility] WBC LM.HPF (Urine sed) [#/Area] 10-20 Abnormal 0 - 5 /HPF [facility] CT ABD/PELVIS WO CONon 05-12 CT ABD/PELVIS WO CON Begin Addendum #[address] Lund 3:25 PM EST 05/11/2022. Begin Addendum #2 IMPRESSION below should also contain the followin. 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 The [place] kidneys are progressively atrophic bilaterally compared to [...] of 06/14/2020 are no longer present. The [place] distal right ureter is decompressed beyond this [...] with surgical history for renal graft and [place] right urinary drainage, as a discrete ureteroneocystostomy is not identified, and the graft may be draining via a ureteroureterostomy. Urology consultation recommended. 3. The [place] kidneys are bilaterally atrophic, with right renal sinus calcifications consistent with nonobstructing right [place] renal calculi up to 6 mm. Normal [facility] CBC AUTO DIFFon 05-11-2022 BASO # 0.1 103/ul Normal 0.0-0.1 [facility] Comment on above: Performed By: #### U RTPCR #### [facility] [address] [place] [address] Dr. Dwight Waters Basophils/100 WBC (Bld) 0.8 % Normal 0.2-2.0 [facility] Comment on above: Performed By: #### U RTPCR #### [facility] [address] [place] [address] Dr. Dwight Waters EO # 0.2 103/ul Normal 0.0-0.7 [facility] Comment on above: Performed By: #### U RTPCR #### [facility] [address] [address] [address] Dwight Waters Eosinophils/100 WBC (Bld) 2.5 % Normal 0.9-7.0 [facility] Comment on above: Performed By: #### U RTPCR #### [facility] [address] [address] [address] Dwight Waters Erythrocyte distribution width (RBC) [Ratio] 12.5 % Normal 11.0-15.0 [facility] Comment on above: Performed By: #### U RTPCR #### [facility] [address] [place] [address] Dr. Dwight Waters Hematocrit (Bld) [Volume fraction] 48.3 % Normal 42.0-54.0 [facility] Comment on above: Performed By: #### U RTPCR #### [facility] [address] [place] [address] Dr. Dwight Waters Hemoglobin (Bld) [Mass/Vol] 15.3 g/dL Normal 14.0-18.0 [facility] Comment on above: Performed By: #### U RTPCR #### [facility] [address] [place] [address] Dr. Dwight Waters IG # 0.01 10e3/ul Normal 0.00-0.03 [facility] Comment on above: Performed By: #### U RTPCR #### [facility] [address] [place] [address] Dr. Dwight Waters IG % 0.2 % Normal 0.0-0.5 [facility] Comment on above: Performed By: #### U RTPCR #### [facility] [address] [place] [address] Dr. Dwight Waters LYMPH # 1.9 103/ul Normal 1.2-3.8 [facility] Comment on above: Performed By: #### U RTPCR #### [facility] [address] [place] [address] Dr. Dwigth Waters Lymphocytes/100 WBC (Bld) 29.8 % Normal 20.5-60.0 [facility] Comment on above: Performed By: #### U RTPCR #### [facility] [address] [place] [address] Dr. Dwight Waters MANUAL DIFF REQ NO Normal [facility] Comment on above: Performed By: #### U RTPCR #### [facility] [address] [place] [address] Dr. Dwight Waters MCH (RBC) [Entitic mass] 28.2 pg Normal 25.9-34.0 [facility] Comment on above: Performed By: #### U RTPCR #### [facility] [address] [place] [address] Dr. Dwight Waters MCHC (RBC) [Mass/Vol] 31.7 g/dL Normal 29.9-35.2 [facility] Comment on above: Performed By: #### U RTPCR #### [facility] [address] [place] [address] Dr. Dwight Waters MCV (RBC) [Entitic vol] 89.1 fL Normal 80.0-94.0 [facility] Comment on above: Performed By: #### U RTPCR #### [facility] [address] [place] [address] Dr. Dwight Waters MONO # 0.6 103/ul Normal 0.3-0.8 [facility] Comment on above: Performed By: #### U RTPCR #### [facility] [address] [place] [address] Dr. Dwight Waters Monocytes/100 WBC (Bld) 9.0 % Normal 1.7-12.0 [facility] Comment on above: Performed By: #### U RTPCR #### [facility] [address] [place] [address] Dr. Dwight Waters NEUT # 3.6 103/ul Normal 1.4-6.5 [facility] Comment on above: Performed By: #### U RTPCR #### [facility] [address] [place] [address] Dr. Dwight Waters Neutrophils/100 WBC (Bld) 57.7 % Normal 43.0-75.0 [facility] Comment on above: Performed By: #### U RTPCR #### [facility] [address] [place] [address] Dr. Dwight Waters Platelet mean volume (Bld) [Entitic vol] 9.9 fL Normal 9.5-13.5 [facility] Comment on above: Performed By: #### U RTPCR #### [facility] [address] [place] [address] Dr. Dwight Waters PLT 249 103/ul Normal 150-450 [facility] Comment on above: Performed By: #### U RTPCR #### [facility] [address] [place] [address] Dr. Dwight Waters RBC 5.42 106/ul Normal 4.70-6.10 [facility] Comment on above: Performed By: #### U RTPCR #### [facility] [address] [place] [address] Dr. Dwight Waters WBC 6.3 103/ul Normal 4.0-11.0 [facility] Comment on above: Performed By: #### U RTPCR #### [facility] [address] [place] [address] Dr. Dwight Waters ER URINE PROFILEon 2 Bilirubin Ql (U) Unable to perform testing due to color interference. Abnormal NEGATIVE [facility] Comment on above: Performed By: #### U RTPCR #### [facility] [address] [place] [address] Dr. Dwight Waters Clarity (U) TURBID Abnormal CLEAR [facility] Comment on above: Performed By: #### U RTPCR #### [facility] [address] [place] [address] Dr. Dwight Waters Color (U) RED Abnormal YELLOW [facility] Comment on above: Performed By: #### U RTPCR #### [facility] [address] [place] [address] Dr. Dwight SHARMA A micrscopic examination will be performed if indicated. Normal [facility] Comment on above: Performed By: #### U RTPCR #### [facility] [address] [place] [address] Dr. Dwight Waters Glucose Ql (U) Unable to perform testing due to color interference. Abnormal NEGATIVE [facility] Comment on above: Performed By: #### U RTPCR #### [facility] [address] [place] [address] Dr. Dwight Waters Hemoglobin Ql (U) Unable to perform testing due to color interference. Abnormal NEGATIVE [facility] Comment on above: Performed By: #### U RTPCR #### [facility] [address] [place] [address] Dr. Dwight Waters Ketones Ql (U) Unable to perform testing due to color interference. Abnormal NEGATIVE [facility] Comment on above: Performed By: #### U RTPCR #### [facility] [address] [place] [address] Dr. Dwight Waters LEUKOCYTES Unable to perform testing due to color interference. Abnormal NEGATIVE [facility] Comment on above: Performed By: #### U RTPCR #### [facility] [address] [place] [address] Dr. Dwight Waters Nitrite Ql (U) Unable to perform testing due to color interference. Abnormal NEGATIVE [facility] Comment on above: Performed By: #### U RTPCR #### [facility] [address] [place] [address] Dr. Dwight Waters pH (U) 6.5 [pH] Normal 5-9 [facility] Comment on above: Performed By: #### U RTPCR #### [facility] [address] [place] [address] Dr. Dwight Waters SPEC GRAVITY 1.020 Normal 1.005-<=1.025 [facility] Comment on above: Performed By: #### U RTPCR #### [facility] [address] [place] [address] Dr. Dwihgt Waters UA PROTEIN Unable to perform testing due to color interference. Normal NEGATIVE/ TRACE [facility] Comment on above: Performed By: #### U RTPCR #### [facility] [address] [place] [address] Dr. Dwight Waters UR MICRO IND INDICATED Normal [facility] Comment on above: Performed By: #### U RTPCR #### [facility] [address] [place] [address] Dr. Dwight Waters UROBILINOGEN Unable to perform testing due to color interference. Normal 0.2 - 1.0 [facility] Comment on above: Performed By: #### U RTPCR #### [facility] [address] [place] [address] Dr. Dwight Waters PROF 14(COMP METB)on 022 Albumin [Mass/Vol] 3.8 g/dL Normal 3.4-5.0 [facility] Comment on above: Performed By: #### C MP #### [facility] [address] [address] [address] Dwight Waters Albumin/Globulin [Mass ratio] 1.1 {ratio} Normal [facility] Comment on above: Performed By: #### C MP #### [facility] [address] [address] [address] Dwight Waters ALP [Catalytic activity/Vol] 106 U/L Normal 46-116 [facility] Comment on above: Performed By: #### C MP #### [facility] [address] [place] [address] Dr. Dwight Waters ALT [Catalytic activity/Vol] 30 U/L Normal 16-63 [facility] Comment on above: Performed By: #### C MP #### [facility] [address] [place] [address] Dr. Dwight Waters Anion gap [Moles/Vol] 11.7 mmol/L Normal [facility] Comment on above: Performed By: #### C MP #### [facility] [address] [place] [address] Dr. Dwight Waters AST [Catalytic activity/Vol] 16 U/L Normal 15-37 [facility] Comment on above: Performed By: #### C MP #### [facility] [address] [place] [address] Dr. Dwight Waters Bilirubin [Mass/Vol] 0.6 mg/dL Normal 0.2-1.0 [facility] Comment on above: Performed By: #### C MP #### [facility] [address] [place] [address] Dr. Dwight Waters Calcium [Mass/Vol] 9.1 mg/dL Normal 8.5-10.1 [facility] Comment on above: Performed By: #### C MP #### [facility] [address] [place] [address] Dr. Dwight Waters CO2 [Moles/Vol] 27.4 mmol/L Normal 21.0-32.0 [facility] Comment on above: Performed By: #### C MP #### [facility] [address] [place] [address] Dr. Dwight Waters Creatinine [Mass/Vol] 1.18 mg/dL Normal 0.70-1.30 [facility] Comment on above: Performed By: #### C MP #### [facility] [address] [address] [address] Dwight Waters EGFR-AF [place] >60 Normal >=60 [facility] Comment on above: Performed By: #### C MP #### [facility] [address] [address] [address] Dwight Waters EGFR-NON AF [place] >60 Normal >=60 [facility] Comment on above: Performed By: #### C MP #### [facility] [address] [address] [address] Dwight Waters Globulin (S) [Mass/Vol] 3.6 g/dL Normal [facility] Comment on above: Performed By: #### C MP #### [facility] [address] [place] [address] Dr. Dwight Waters Glucose [Mass/Vol] 192 mg/dL Critically high 74-106 [facility] Comment on above: Performed By: #### C MP #### [facility] [address] [address] [address] Dwight Waters Potassium [Moles/Vol] 4.1 mmol/L Normal 3.5-5.1 [facility] Comment on above: Performed By: #### C MP #### [facility] [address] [place] [address] Dr. Dwight Waters Protein [Mass/Vol] 7.4 g/dL Normal 6.4-8.2 [facility] Comment on above: Performed By: #### C MP #### [facility] [address] [address] [address] Dwight Waters Sodium [Moles/Vol] 142 mmol/L Normal 136-145 [facility] Comment on above: Performed By: #### C MP #### [facility] [address] [place] [address] Dr. Dwight Waters Urea nitrogen [Mass/Vol] 17.0 mg/dL Normal 7.0-18.0 [facility] Comment on above: Performed By: #### C MP #### [facility] [address] [place] [address] Dr. Dwight Waters Urea nitrogen/Creatinine [Mass ratio] 14.4 mg/mg Normal [facility] Comment on above: Performed By: #### C MP #### [facility] [address] [place] [address] Dr. Dwight Waters URINE MICROSCOPIC ONLYon BACTERIA NONE SEEN Normal NONE SEEN [facility] Comment on above: Performed By: #### U RTPCR #### [facility] [address] [place] [address] Dr. Dwight Waters Bacteria identified Cx Nom (U) NOT INDICATED Normal [facility] Comment on above: Performed By: #### U RTPCR #### [facility] [address] [place] [address] Dr. Dwight Waters CAST NONE SEEN Normal NONE SEEN [facility] Comment on above: Performed By: #### U RTPCR #### [facility] [address] [place] [address] Dr. Dwight Waters Crystals LM Nom (Urine sed) NONE SEEN Normal NONE SEEN [facility] Comment on above: Performed By: #### U RTPCR #### [facility] [address] [place] [address] Dr. Dwight Waters Epithelial cells LM Ql (Urine sed) RARE Normal NONE SEEN /RARE [facility] Comment on above: Performed By: #### U RTPCR #### [facility] [address] [place] [address] Dr. Dwight Waters MUCOUS NONE SEEN Normal NONE SEEN [facility] Comment on above: Performed By: #### U RTPCR #### [facility] [address] [place] [address] Dr. Dwight Waters RBC (U) [#/Vol] /uL Abnormal 0-2 [facility] Comment on above: Performed By: #### U RTPCR #### [facility] [address] [place] [address] Dr. Dwight Waters WBC NONE SEEN Normal NONE SEEN [facility] Comment on above: Performed By: #### U RTPCR #### [facility] [address] [place], [place] [address] Dr. Dwight Ortiz (Potassium)on 01-06-2020 Potassium [Moles/Vol] 4.4 mmol/L Normal 3.7-5.3 [facility] Comment on above: Performed By: #### K #### [facility] [address] [place] [address] Web Site Specialist: Kehinde Woodward MD Potassiumon 01-06-2020 Potassium [Moles/Vol] 4.4 mmol/L 3.7 - 5.3 mmol/L [facility] Work Phone: Hemoglobin and Hematocrit, B loodon 10-24-2019 Hematocrit (Bld) [Volume fraction] 23.6 % Low 40.7 - 50.3 % [place], [place] Hemoglobin (Bld) [Mass/Vol] 7.3 g/dL Low 13 - 17 g/dL [place] Interpretation and review of laboratory results Abnormal [place] Hgb/Hcton 10-24-2019 Hematocrit (Bld) [Volume fraction] 23.6 % Low 40.7-50.3 [facility] Comment on above: Performed By: #### H H #### [address] [place] [address] Web Site Specialist: Kehinde Woodward MD Hemoglobin (Bld) [Mass/Vol] 7.3 g/dL Low 13.0-17.0 [facility] Comment on above: Performed By: #### H H #### [facility] [address] [place] [address] Web Site Specialist: Kehinde Woodward MD Hemoglobinon 08-27-2019 Hemoglobin (Bld) [Mass/Vol] 7.5 g/dL Low 13.0-17.0 [facility] Comment on above: Performed By: #### H GB #### [facility] [address] [place] [address] Web Site Specialist: Kehinde Woodward MD Hemoglobin (Bld) [Mass/Vol] 7.5 g/dL Low 13 - 17 g/dL [place], [place] Interpretation and review of laboratory results Abnormal [place] Hemoglobinon 08-08-2019 Hemoglobin (Bld) [Mass/Vol] 8.3 g/dL Low 13.0-17.0 [facility] Comment on above: Performed By: #### H GB #### [facility] [address] [place] [address] [address] [id number] Web Site Specialist: Kehinde Woodward MD Hemoglobin (Bld) [Mass/Vol] 8.3 g/dL Low 13 - 17 g/dL [place] Interpretation and review of laboratory results Abnormal [place] Hemoglobinon 08-04-2019 Hemoglobin (Bld) [Mass/Vol] 8.0 g/dL Low 13.0-17.0 [facility] Comment on above: Performed By: #### H GB #### [address] [place] [address] Web Site Specialist: Kehinde Woodward MD Hemoglobin A1Con 08-03-2019 HbA1c (Bld) [Mass fraction] % Low 4.8-5.9 [facility] Comment on above: Result Comment: The ADA and AACC recommend providing the estimated average glucose result to permit better patient understanding of their HBA1c result. Performed By: #### G LYHGB #### [address] [place], [place] [id number] Web Site Specialist: Kehinde Woodward MD Glucose [Mass/Vol] mg/dL mg/dL [place], [place] Comment on above: The ADA and AACC rec ommend providing the estimated average glucose result to permit better patient understanding of their HBA1c result. HbA1c (Bld) [Mass fraction] % Low 4.8 - 5.9 % [place], [place] Interpretation and review of laboratory results Abnormal [place] Hemoglobinon 08-01-2019 Hemoglobin (Bld) [Mass/Vol] 8.1 g/dL Low 13.0-17.0 The [facility] Comment on above: Performed By: #### H GB #### [facility] [address] [place] [id number] Web Site Specialist: Kehinde Woodward MD Hemoglobin (Bld) [Mass/Vol] 8.1 g/dL Low 13 - 17 g/dL [place], [place] Interpretation and review of laboratory results Abnormal [place], [place] Hgb/Hcton 06-10-2019 Hematocrit (Bld) [Volume fraction] 24.3 % Low 40.7-50.3 [facility] Comment on above: Performed By: #### H H #### [facility] [address] [place] [facility] Web Site Specialist: Kehinde Woodward MD Hemoglobin (Bld) [Mass/Vol] 7.4 g/dL Low 13.0-17.0 [facility] Comment on above: Performed By: #### H H #### [facility] [address] [place] [id number] Web Site Specialist: Kehinde Woodward MD Hemoglobinon 06-01-2019 Hemoglobin (Bld) [Mass/Vol] 7.2 g/dL Low 13.0-17.0 [facility] Comment on above: Performed By: #### H GB #### [facility] [address] [place] [address] Web Site Specialist: Kehinde Woodward MD K (Potassium)on 01-14-2019 Potassium [Moles/Vol] 3.6 mmol/L Low 3.7-5.3 [facility] Comment on above: Performed By: #### K #### [facility] [address] [place] [address] Web Site Specialist: Kehinde Woodward MD Otheron 10-19-2018 IMPRESSION: 1. [...] characteristics determined by Toxicology Laboratory at [facility]. It has not been cleared [...] Amitriptyline(50), Amphetamine(250), Atenolol(500), Barbiturates(1000), Benzoylecgonine(50), Buprenorphine(50), Bupropion(25), Caffeine(26936), Chlordiazepoxide(50), Chlorpheniramine(100), Chlorpromazine(50), Citalopram(100), Clonazepam(200), Cocaine(25), Codeine(200), [...] [place], [facility] TOXICOLOGY SCREEN URINE - UD [facility] 10-12-2018 Drugs identified Screen Nom (U) For Medical Purposes Only, Non-forensic, screen results are presumptive. No confirmatory testing will follow. Invalid Interpretation Code [place], [facility] Comment on above: This Liquid Chromato graphy Mass Spectrometry (LC/MS/MS) test was developed and its performance characteristics determined by Toxicology Laboratory at [facility]. It has not been cleared [...] Amitriptyline(50), Amphetamine(250), Atenolol(500), Barbiturates(200), Benzoylecgonine(50), Buprenorphine(500), Bupropion(25), Caffeine(06118), Cannabinoids(THC)(50), Chlordiazepoxide(50), Chlorpheniramine(100), Chlorpromazine(50), Citalopram(100), Clonazepam(200), Cocaine(25), [...] Pressure Location Clementina Montesinos [facility] 09-08-2024 13:40-0400 Diastolic blood pressure 90 mm[Hg] Clementina Montesinos [facility] 09-08-2024 13:40-0400 Heart rate 66 /min Clementina Galea [facility] 09-08-2024 13:40-0400 Systolic blood pressure 144 mm[Hg] Clementina Galea [facility] 06-17-2024 08:37-0400 Body mass index (BMI) [Ratio] 29.43 kg/m2 Rebeca Gutierrez SCREEDMAN-EXPEDITER CLERK Work Phone: [facility] 06-17-2024 08:37-0400 Body temperature 97.39 [degF] Rebeca Gutierrez SCREEDMAN-EXPEDITER CLERK Work Phone: [facility] 06-17-2024 08:37-0400 Body weight 85.23 kg Rebeca Gutierrez SCREEDMAN-EXPEDITER CLERK Work Phone: [facility] 06-17-2024 08:37-0400 Diastolic blood pressure 75 mm[Hg] Rebeca Gutierrez SCREEDMAN-EXPEDITER CLERK Work Phone: [facility] 06-17-2024 08:37-0400 Heart rate 53 /min Rebeca Gutierrez SCREEDMAN-EXPEDITER CLERK Work Phone: [facility] 06-17-2024 08:37-0400 Systolic blood pressure 143 mm[Hg] Rebeca Gutierrez SCREEDMAN-EXPEDITER CLERK Work Phone: [facility] 06-17-2024 08:36-0400 Body mass index (BMI) [Ratio] 29.43 kg/m2 Daisha Sobotka DO Work Phone: [facility] 06-17-2024 08:36-0400 Body temperature 97.39 [degF] Daisha Sobotka DO Work Phone: [facility] 06-17-2024 08:36-0400 Body weight 85.23 kg Daisha Sobotcarl DO Work Phone: [facility] 06-17-2024 08:36-0400 Diastolic blood pressure 75 mm[Hg] Daisha Sobotka DO Work Phone: [facility] 06-17-2024 08:36-0400 Heart rate 53 /min Daisha Sobotka DO Work Phone: [facility] 06-17-2024 08:36-0400 Systolic blood pressure 143 mm[Hg] Daisha Sobotka DO Work Phone: [facility] 02-26-2024 09:07-0400 Diastolic blood pressure 56 mm[Hg] Candie Almaguer MD Work Phone: [facility] 02-26-2024 09:07-0400 Heart rate 65 /min Candie Almaguer MD Work Phone: [facility] 02-26-2024 09:07-0400 Systolic blood pressure 113 mm[Hg] Candie Almaguer MD Work Phone: [facility] 02-26-2024 09:06-0400 Body height 170.2 cm Candie Almaguer MD Work Phone: [facility] 02-26-2024 09:06-0400 Body mass index (BMI) [Ratio] 28.9 kg/m2 Candie Almaguer MD Work Phone: [facility] 02-26-2024 09:06-0400 Body weight 83.69 kg Candie Almaguer MD Work Phone: [facility] 02-26-2024 09:06-0400 Respiratory rate 20 /min Candie Almaguer MD Work Phone: [facility] 02-26-2024 09:06-0400 SaO2% (BldA) [Mass fraction] 97 % Candie Almaguer MD Work Phone: [facility] 01-23-2024 15:04-0500 Body temperature 97.9 [degF] Kevin Prince MD Work Phone: [facility] 01-23-2024 15:04-0500 Diastolic blood pressure 67 mm[Hg] Kevin Prince MD Work Phone: [facility] 01-23-2024 15:04-0500 Heart rate 51 /min Kevin Prince MD Work Phone: [facility] 01-23-2024 15:04-0500 Respiratory rate 16 /min Kevin Prince MD Work Phone: [facility] 01-23-2024 15:04-0500 SaO2% (BldA) [Mass fraction] 94 % Kevin Prince MD Work Phone: [facility] 01-23-2024 15:04-0500 Systolic blood pressure 151 mm[Hg] Kevin Prince MD Work Phone: [facility] 01-23-2024 10:46-0500 Body mass index (BMI) [Ratio] 30.94 kg/m2 Kevin Prince MD Work Phone: [facility] 01-23-2024 10:46-0500 Body weight 89.6 kg Kevin Prince MD Work Phone: [facility] 01-18-2024 11:21-0500 Body height 170.2 cm Kevin Prince MD Work Phone: [facility] 01-06-2024 09:04-0500 Body height 170.2 cm Zuly Bruno NP Work Phone: [facility] 01-06-2024 09:04-0500 Body mass index (BMI) [Ratio] 32.42 kg/m2 Zuly Torresholz CABLE WAY OPERATOR Work Phone: [facility] 01-06-2024 09:04-0500 Body temperature 97.81 [degF] Zuly Torresholz CABLE WAY OPERATOR Work Phone: [facility] 01-06-2024 09:04-0500 Body weight 93.89 kg Zuly Torresholz CABLE WAY OPERATOR Work Phone: [facility] 01-06-2024 09:04-0500 Diastolic blood pressure 70 mm[Hg] Zuly Brianholz CABLE WAY OPERATOR Work Phone: [facility] 01-06-2024 09:04-0500 Heart rate 95 /min Zulytray Torresholz CABLE WAY OPERATOR Work Phone: [facility] 01-06-2024 09:04-0500 Respiratory rate 17 /min Zulytray Torresholz CABLE WAY OPERATOR Work Phone: [facility] 01-06-2024 09:04-0500 SaO2% (BldA) [Mass fraction] 99 % Zulytray Torresholz CABLE WAY OPERATOR Work Phone: [facility] 01-06-2024 09:04-0500 Systolic blood pressure 138 mm[Hg] Zuyltray Torresholz CABLE WAY OPERATOR Work Phone: [facility] 09-11-2023 10:31-0400 Body temperature 97.81 [degF] Steve Tammy MBBS Work Phone: [facility] 09-11-2023 10:31-0400 Diastolic blood pressure 66 mm[Hg] Steve Tammy MBBS Work Phone: [facility] 09-11-2023 10:31-0400 Heart rate 70 /min Steve Tammy MBBS Work Phone: [facility] 09-11-2023 10:31-0400 Respiratory rate 20 /min Steve Tammy MBBS Work Phone: [facility] 09-11-2023 10:31-0400 SaO2% (BldA) [Mass fraction] 91 % Steve Tammy MBBS Work Phone: [facility] 09-11-2023 10:31-0400 Systolic blood pressure 129 mm[Hg] Steve Tammy MBBS Work Phone: [facility] 09-10-2023 15:50-0400 Body mass index (BMI) [Ratio] 31.99 kg/m2 Steve Tammy MBBS Work Phone: [facility] 09-10-2023 15:50-0400 Body weight 92.67 kg Steve Tammy MBBS Work Phone: [facility] 09-02-2023 07:32-0400 Body height 170.2 cm Steve Tammy MBBS Work Phone: [facility] 08-28-2023 13:33-0400 Body height 170.2 cm Steve Tammy MBBS Work Phone: [facility] 08-28-2023 13:33-0400 Body mass index (BMI) [Ratio] 32.12 kg/m2 Steve Tammy MBBS Work Phone: [facility] 08-28-2023 13:33-0400 Body temperature 97.3 [degF] Steve Tammy MBBS Work Phone: [facility] 08-28-2023 13:33-0400 Body weight 93.03 kg Steve Tammy MBBS Work Phone: [facility] 08-28-2023 13:33-0400 Diastolic blood pressure 41 mm[Hg] Steve Tammy MBBS Work Phone: [facility] 08-28-2023 13:33-0400 Heart rate 116 /min Steve Tammy MBBS Work Phone: [phone] [address] 08-28-2023 13:33-0400 Systolic blood pressure 106 mm[Hg] Steve Farrarmatthew LEIGH Work Phone: [facility] 06-12-2023 14:50-0400 Body mass index (BMI) [Ratio] 33.8 kg/m2 Rebeca Gutierrez SCREEDMAN-EXPEDITER CLERK Work Phone: [facility] 06-12-2023 14:50-0400 Body temperature 97.3 [degF] Rebeca Gutierrez SCREEDMAN-EXPEDITER CLERK Work Phone: [facility] 06-12-2023 14:50-0400 Body weight 97.89 kg Rebeca Gutierrez SCREEDMAN-EXPEDITER CLERK Work Phone: [facility] 06-12-2023 14:50-0400 Diastolic blood pressure 77 mm[Hg] Rebeca Gutierrez SCREEDMAN-EXPEDITER CLERK Work Phone: [facility] 06-12-2023 14:50-0400 Heart rate 76 /min Rebeca Gutierrez SCREEDMAN-EXPEDITER CLERK Work Phone: [facility] 06-12-2023 14:50-0400 Systolic blood pressure 146 mm[Hg] Rebeca Gutierrez SCREEDMAN-EXPEDITER CLERK Work Phone: [facility] 01-16-2023 08:57-0500 Body height 170.2 cm [facility] Work Phone: [facility] 01-16-2023 08:57-0500 Body mass index (BMI) [Ratio] 33.66 kg/m2 [facility] Work Phone: [facility] 01-16-2023 08:57-0500 Body temperature 97.3 [degF] [facility] Work Phone: [facility] 01-16-2023 08:57-0500 Body weight 97.48 kg [facility] Work Phone: [facility] 01-16-2023 08:57-0500 Diastolic blood pressure 75 mm[Hg] [facility] Work Phone: [facility] 01-16-2023 08:57-0500 Heart rate 76 /min [facility] Work Phone: [facility] 01-16-2023 08:57-0500 Systolic blood pressure 142 mm[Hg] [facility] Work Phone: [facility] 09-10-2022 09:38-0400 Body height 170.2 cm Ryan Yepez MD Work Phone: [facility] 09-10-2022 09:38-0400 Body mass index (BMI) [Ratio] 33.67 kg/m2 Ryan Yepez MD Work Phone: [facility] 09-10-2022 09:38-0400 Body weight 97.52 kg Ryan Yepez MD Work Phone: [facility] 09-10-2022 09:38-0400 Diastolic blood pressure 83 mm[Hg] Ryan Yepez MD Work Phone: [facility] 09-10-2022 09:38-0400 Heart rate 64 /min Ryan Yepez MD Work Phone: [facility] 09-10-2022 09:38-0400 SaO2% (BldA) [Mass fraction] 96 % Ryan Yepez MD Work Phone: [facility] 09-10-2022 09:38-0400 Systolic blood pressure 129 mm[Hg] Ryan Yepez MD Work Phone: [facility] 07-07-2022 13:48-0400 Diastolic blood pressure 76 mm[Hg] Ryan Yepez MD Work Phone: [facility] 07-07-2022 13:48-0400 Heart rate 82 /min Ryan Yepez MD Work Phone: [facility] 07-07-2022 13:48-0400 SaO2% (BldA) [Mass fraction] 96 % Ryan Yepez MD Work Phone: [facility] 07-07-2022 13:48-0400 Systolic blood pressure 141 mm[Hg] Ryan Yepez MD Work Phone: 2(209)[phone] [address] 06-27-2022 13:32-0400 Body height 170.2 cm Ryan Yepez MD Work Phone: [facility] 06-27-2022 13:32-0400 Body mass index (BMI) [Ratio] 34.24 kg/m2 Ryan Yepez MD Work Phone: [phone] [address] 06-27-2022 13:32-0400 Body temperature 98.6 [degF] Ryan Yepez MD Work Phone: [facility] 06-27-2022 13:32-0400 Body weight 99.16 kg Ryan Yepez MD Work Phone: [facility] 06-27-2022 13:32-0400 Diastolic blood pressure 78 mm[Hg] Ryan Yepez MD Work Phone: [facility] 06-27-2022 13:32-0400 Heart rate 77 /min Ryan Yepez MD Work Phone: [facility] 06-27-2022 13:32-0400 SaO2% (BldA) [Mass fraction] 95 % Ryan Yepez MD Work Phone: [facility] 06-27-2022 13:32-0400 Systolic blood pressure 121 mm[Hg] Ryan Yepez MD Work Phone: [facility] 06-27-2022 10:52-0400 Body height 170.2 cm Rena Brewster RN [facility] 06-27-2022 10:52-0400 Body mass index (BMI) [Ratio] 34.46 kg/m2 Rena Brewster RN [facility] 06-27-2022 10:52-0400 Body temperature 98.2 [degF] Rena Brewster RN [facility] 06-27-2022 10:52-0400 Body weight 99.79 kg Rena Brewster RN [facility] 06-27-2022 10:52-0400 Diastolic blood pressure 73 mm[Hg] Rena Brewster RN [facility] 06-27-2022 10:52-0400 Heart rate 78 /min Rena Brewster RN [facility] 06-27-2022 10:52-0400 Respiratory rate 20 /min Rena Brewster RN [facility] 06-27-2022 10:52-0400 SaO2% (BldA) [Mass fraction] 97 % Rena Brewster RN [facility] 06-27-2022 10:52-0400 Systolic blood pressure 135 mm[Hg] Rena Brewster RN [facility] 06-12-2022 14:23-0400 Body mass index (BMI) [Ratio] 34.59 kg/m2 Steve LEIGH Work Phone: [facility] 06-12-2022 14:23-0400 Body temperature 97 [degF] Steve MORENOBS Work Phone: [facility] 06-12-2022 14:23-0400 Body weight 100.2 kg Steve MORENOBS Work Phone: [facility] 06-12-2022 14:23-0400 Diastolic blood pressure 66 mm[Hg] Steve MORENOBS Work Phone: [facility] 06-12-2022 14:23-0400 Heart rate 63 /min Steve Munoz LU Work Phone: [facility] 06-12-2022 14:23-0400 Systolic blood pressure 133 mm[Hg] Steve Munoz LU Work Phone: [facility] 05-20-2022 15:21-0400 Body temperature 97.9 [degF] Gian Villatoro MD Work Phone: [facility] 05-20-2022 15:21-0400 Diastolic blood pressure 64 mm[Hg] Gian Villatoro MD Work Phone: [facility] 05-20-2022 15:21-0400 Heart rate 55 /min Gian Villatoro MD Work Phone: [facility] 05-20-2022 15:21-0400 Respiratory rate 15 /min Gian Villatoro MD Work Phone: [facility] 05-20-2022 15:21-0400 SaO2% (BldA) [Mass fraction] 95 % Gian Villatoro MD Work Phone: [facility] 05-20-2022 15:21-0400 Systolic blood pressure 145 mm[Hg] Gian Villatoro MD Work Phone: [facility] 05-19-2022 12:15-0400 Body mass index (BMI) [Ratio] 35.87 kg/m2 Gian Villatoro MD Work Phone: [facility] 05-19-2022 12:15-0400 Body weight 103.92 kg Gian Villatoro MD Work Phone: [phone] [address] Comment on above: standing scale 05-16-2022 16:19-0400 Body height 170.2 cm Gian Villatoro MD Work Phone: [phone] [address] 10-19-2018 08:44-0500 BMI (Body Mass Index) 26.58 kg/m2 [facility] Work Phone: 10-19-2018 08:44-0500 BP Diastolic 76 mm[Hg] [facility] Work Phone: 10-19-2018 08:44-0500 BP Systolic 144 mm[Hg] [facility] Work Phone: 10-19-2018 08:44-0500 Height 172.7 cm [facility] Work Phone: 10-19-2018 08:44-0500 Pulse (Heart Rate) 92 /min [facility] Work Phone: 10-19-2018 08:44-0500 Pulse Oximetry 99 % [facility] Work Phone: 10-19-2018 08:44-0500 Respiratory Rate 16 /min [facility] Work Phone: 10-19-2018 08:44-0500 Weight 79.29 kg [facility] Work Phone: 10-12-2018 09:50-0500 BMI (Body Mass Index) 27.24 kg/m2 [facility] Work Phone: 10-12-2018 09:50-0500 Body Temperature 98.6 [degF] [facility] Work Phone: 10-12-2018 09:50-0500 BP Diastolic 80 mm[Hg] [facility] Work Phone: 10-12-2018 09:50-0500 BP Systolic 157 mm[Hg] [facility] Work Phone: 10-12-2018 09:50-0500 Height 169.5 cm [facility] Work Phone: 10-12-2018 09:50-0500 Pulse (Heart Rate) 94 /min [facility] Work Phone: 10-12-2018 09:50-0500 Weight 78.29 kg [facility] Work Phone: Encounters Encounter Date Encounter Type Care Provider Facility Start: 11-22-2024 ambulatory Steph Silva y:[facility] Start: 11-07-2024 End: 11-07-2024 ambulatory ZULY BRUNO Not Available Start: 10-31-2024 End: 10-31-2024 ambulatory Evan Bolton RPh,PharmD [facility] Start: 10-31-2024 End: 10-31-2024 Patient encounter procedure Evan Bolton RPh,PharmD [facility] Start: 09-27-2024 End: 09-27-2024 Clinisync Result Encounter [...] Start: 09-08-2024 End: 09-08-2024 ambulatory ZULY BRUNO Facility:[facility] Start: 09-08-2024 End: 09-08-2024 Patient encounter procedure Clementina Montesinos [facility] Start: 09-07-2024 ambulatory ZULY AICHHOLZ Facility: [facility] Start: 09-05-2024 End: 09-05-2024 ambulatory Angel Carpio RPh,PharmD [facility] Start: 09-05-2024 End: 09-05-2024 Patient encounter procedure Angel Calee RPh,PharmD [facility] Start: 08-24-2024 [facility] Start: 08-23-2024 End: 08-23-2024 ambulatory ZULY ELENZ Not Available Start: 06-23-2024 End: 06-23-2024 ambulatory Meka Munoz [facility] Start: 06-23-2024 End: 06-23-2024 Patient encounter procedure Meka Munoz [facility] Start: 06-17-2024 End: 06-17-2024 Office outpatient visit 25 minutes Daisha Max DO Work Phone: [facility] Comment on above: Liver lesion (Primar y Dx); Liver transplant recipient; High risk medication use; Therapeutic drug monitoring; 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) Start: 06-17-2024 ambulatory DAISHA MAX Facil ity:[facility] Start: 05-26-2024 End: 05-26-2024 ambulatory Evan Bolton RPh,PharmD [facility] Start: 05-26-2024 End: 05-26-2024 Patient encounter procedure Evan Bolton RPh,PharmD [facility] Start: 05-13-2024 End: 05-13-2024 ambulatory [facility] Start: 04-18-2024 End: 04-18-2024 ambulatory ZULY AICHLATISHAZ Not Available Start: 03-24-2024 End: 03-24-2024 Patient encounter procedure Angel Calee RPh,PharmD [facility] Start: 03-24-2024 End: 03-24-2024 ambulatory Angel Carpio [facility],PharmD Pharmacy Outpatient [facility] Start: 03-22-2024 End: [...] End: 03-02-2024 ambulatory Meka Munoz [facility] Pharm[facility] Outpatient [facility] Start: 03-02-2024 End: 03-02-2024 Patient encounter procedure Meka Munoz [facility] Pharm[facility] Outpatient [facility] Start: 03-01-2024 ambulatory ZULY BRUNO Facility: [facility] Start: 03-01-2024 End: 03-01-2024 ambulatory JOHNNA BRINK Not Available Start: 02-26-2024 ambulatory CANDIE ALMAGUER Facility: [facility] Start: 02-26-2024 End: 02-26-2024 Office outpatient new 30 minutes Candie Almaguer MD Work Phone: [facility] Comment on above: Heart failure, diast olic, acute (Primary Dx) Start: 02-26-2024 ambulatory KELVIN PACHECO Facility: [facility] Start: 02-25-2024 End: 02-25-2024 ambulatory FIDELINA SANCHEZ Not Available Start: 02-23-2024 End: 02-23-2024 ambulatory PALMA PALACIOS Not Available Start: 02-11-2024 Patient encounter procedure Generic Provider [facility] Start: 02-11-2024 End: 02-11-2024 ambulatory ZULY AICHHOLZ Not Available Start: 01-16-2024 End: 01-23-2024 Encounter for other preprocedural examination KELVIN PACHECO Facility:[facility] Start: 01-16-2024 End: 01-23-2024 Evaluation and management of inpatient Kevin Prince MD Work Phone: [email or web address] Comment on above: Pleural effusion on right Start: 01-16-2024 End: 01-23-2024 Patient encounter status Kevin Prince MD Work Phone: [facility] Work Phone: Start: 01-12-2024 End: 01-12-2024 ambulatory Angel Fete RPh,PharmD Pharm[facility] Start: 01-12-2024 End: 01-12-2024 Patient encounter procedure Angel Fete RPh,PharmD Pharmacy [facility] Start: 01-08-2024 Clinisync Result Encounter Generic External Data Provider [facility] External [facility] Unsolicited Start: 01-08-2024 Clinisync Result Encounter Generic External Data Provider [facility] External [facility] Unsolicited Start: 01-06-2024 End: 01-06-2024 Office outpatient visit 25 minutes Zuly Bruno CABLE WAY OPERATOR Work Phone: [facility] Comment on above: Bilateral lower extr emity edema (Primary Dx); 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); Atherosclerosis 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); Obesity (BMI 30-39.9); DARLENE (obstructive sleep apnea); Tremor; Immunocompromised (CMS/HCC); Primary hypertension ([facility] Shortness of breath Start: 01-06-2024 End: 01-06-2024 ambulatory ZULY ELENZ Not Available Start: 01-01-2024 Clinisync Result Encounter Generic External Data Provider [facility] External Department Unsolicited Start: 01-01-2024 Clinisync Result Encounter Generic External Data Provider [facility] External Department Unsolicited Start: 10-06-2023 ambulatory Angel Fete RPh,PharmD Pharmacy [facility] Start: 10-06-2023 Patient encounter procedure Angel Fete RPh,PharmD Pharm[facility] Start: 09-29-2023 ambulatory ZULY ELENZ Facility: [facility] Start: 09-23-2023 ambulatory ZULY KIANA Facility: [facility] Start: 09-15-2023 ambulatory [facility] Facility: [facility] Start: 08-28-2023 End: 09-11-2023 Evaluation and management of inpatient Steve Munoz MBBS Work Phone: [id number] Start: 08-28-2023 End: 08-28-2023 Office outpatient visit 25 minutes Steve Munoz MBBS Work Phone: [facility] Comment on above: Immunosuppressed sta tus (Primary Dx); Kidney replaced by transplant; Aftercare following organ transplant; High risk medication use; Other general symptoms and signs; Abnormal blood chemistry; Hypertension secondary to other renal disorders Start: 08-19-2023 ambulatory Meka rueda [facility] Pharm[facility] Outpatient [facility] Start: 08-19-2023 Patient encounter procedure Meka Munoz [facility] Pharmacy Outpatient [facility] Start: 06-12-2023 End: 06-12-2023 Office outpatient visit 25 minutes Steve Munoz MBBS Work Phone: [facility] Comment on above: 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) Start: 06-10-2023 ambulatory Maren Dipika RPh,PharmD Pharmacy Outpatient [facility] Start: 06-10-2023 Patient encounter procedure Maren Hayeney RPh,PharmD Pharmacy Outpatient [facility] Start: 04-28-2023 End: 04-29-[address] DOCTOR EVANS Facility:[facility] Start: 03-12-2023 ambulatory Angel Fete RPh,PharmD Pharmacy [facility] Start: 03-12-2023 Patient encounter procedure Angel Fete RPh,PharmD Pharmacy Outpatient [facility] Start: 03-10-2023 ambulatory Angel Madsene RPh,PharmD Pharmacy [facility]patient [facility] Start: 03-10-2023 Patient encounter procedure Angel Fete RPh,PharmD Pharmacy [facility] Start: 03-02-2023 End: 03-03-[address] DOCTOR [...] MD Work Phone: [facility] [place] Comment on above: BPH with obstruction /lower urinary tract symptoms (Primary Dx); Encounter for screening for malignant neoplasm of prostate Start: 08-28-2022 End: 08-29-2022 ambulatory ROB BRUNO Facility:[facility] Start: 08-14-2022 End: 08-15-[address] DOCTOR EVANS Facility:[facility] Start: 07-07-2022 End: 07-07-2022 Patient encounter procedure Ryan Yepez MD Work Phone: [facility] [place] Comment on above: Other hydronephrosis (Primary Dx); [...] MD Work Phone: [facility] [place] Comment on above: Other hydronephrosis (Primary Dx) [...] visit 25 minutes Steve LEIGH Work Phone: [facility] Comment on above: Immunosuppressed sta [...] Start: 03-14-2022 ambulatory Comfort Rivera [facility] Work Phone: Pharmacy Outpatient RX [facility] Start: 03-14-2022 Patient encounter procedure Comfort Rivera [facility] Work Phone: Pharmacy Outpatient [facility] Start: 06-14-2021 End: 06-14-2021 ambulatory Comfort Rivera [facility] Work Phone: [facility] Start: 06-14-2021 Patient encounter procedure Comfort Rivera [facility] Work Phone: [facility] Start: 01-20-2020 End: 01-27-2020 Patient encounter procedure PEPE CASE Facility:[facility] Start: 01-06-2020 End: 01-07-2020 [facility] Start: 01-06-2020 End: 01-06-2020 Subsequent hospital visit by physician [facility] Start: 10-24-2019 End: 10-25-2019 Patient encounter procedure TANA CAMPA [facility] Start: 10-24-2019 End: 10-24-2019 Subsequent hospital visit by physician [facility] Start: 08-27-2019 End: 08-28-2019 Patient encounter [facility] Start: 08-27-2019 End: 08-27-2019 Subsequent hospital visit by physician [facility] Start: 08-08-2019 End: 08-09-2019 [facility] Start: 08-08-2019 End: 08-08-2019 Subsequent hospital visit by physician [facility] Start: 08-03-2019 End: 08-04-2019 Patient encounter procedure ROBAmber PATINO [facility] Start: 08-03-2019 End: 08-03-2019 Subsequent hospital visit by physician [facility] Start: 08-01-2019 End: 08-02-2019 Patient encounter procedure ROBAmber PATINO [facility] Start: 08-01-2019 End: 08-01-2019 Subsequent hospital visit by physician [facility] Start: 06-10-2019 End: 06-11-2019 Patient encounter [facility] Start: 06-01-2019 End: 06-02-2019 Patient encounter [facility] Start: 01-14-2019 End: 01-15-2019 Patient encounter procedure [facility] Start: 11-17-2018 End: 11-17-2018 Patient encounter procedure Fidelina Pierson [facility] Pre Transplant Office Comment on above: Social Work Follow-u p Start: 10-19-2018 End: 10-19-2018 Patient encounter Autumn Rooney [facility] Pre Transplant Office [...] End: 10-13-2018 Patient encounter procedure Autumn Rooney [facility] [place] [facility] Comment on above: Reschedule Outside Medical Allan rds Request Start: 10-12-2018 End: 10-12-2018 Patient encounter procedure Sophie Cary [facility] [place] [facility] Comment on above: Alcoholic cirrhosis, unspecified whether ascites present (Primary Dx); Pre-transplant evaluation for liver transplant Start: 10-12-2018 End: 10-12-2018 Office outpatient new 60 minutes Alfredito Restrepo Work Phone: [facility] [place] Pre [facility] Comment on above: Alcoholic cirrhosis, unspecified whether ascites present; ESRD (end stage renal disease) on dialysis; Pre-transplant evaluation for liver transplant Start: 10-06-2018 End: 10-06-2018 Patient encounter procedure Yovani Orr Work Phone: Department of Radiology Comment on above: Canceled (Insurance Company Redirected Pt) Start: 10-05-2018 Patient encounter status Comfort Rivera [facility] Work Phone: [facility] Procedures Date Procedure Procedure Detail [...] #### C HM7, HFP, MGO #### [facility] ([facility]) [address] [place] [address] Start: 01-22-2024 Assay of magnesium Just in [...] 01-20-2024 ITRACONAZOLE LEVEL Jennifer Alarcon [facility] Work Phone: Start: 01-20-2024 Oscillating positive [...] each organism Fidelina Ortiz Alarcon [facility] Work Phone: Start: 01-18-2024 Echo tthrc [...] AURIS SCREEN BY PCR Carol Ann Capps SCREEDMAN-SUPERVISOR FEED HOUSE Work Phone: Start: 01-08-2024 ALL CBC WITH [...] AURIS SCREEN BY PCR Carol Ann Capps SCREEDMAN-SUPERVISOR [employer] Work Phone: Start: 08-28-2023 CBC AND ELECTRONIC [...] Phone: Start: 09-15-[address] DOCTOR SCHOFIELD Comment on above: Performed By: #### C MP #### [facility] [address] [place] [address] Dr. Dwight Waters Start: 07-07-2022 Rmvl nfros tube req fluoro guidance Ryan Yepez MD Work Phone: Start: 06-27-2022 Ct abdomen & pelvis w/o contrast material Evan Byrd MD Work Phone: Start: 06-12-2022 Culture bct isol&prs mptv id isolate ea urine Steve S Tammy MBBS Work Phone: Start: 06-12-2022 EXTRA MICRO [...] liver trans plant Comfort Rivera [facility] Work Phone: Start: 04-08-2020 H/O: liver recipient Liver tra nsplant recipient Comfort Rivera [facility] Work Phone: Start: 01-06-2020 Potassium serum [...] kidney transplant recipient Comfort Rivera [facility] Work Phone: Start: 06-10-2019 HEMOGLOBIN AND HEMAT OCRIT, BLOOD ROB KASMANI Start: 06-01-2019 Blood count hemoglobin ROB KASMANI Start: 03-22-2019 Lipid 1996 panel - S fabricio or Plasma Comfort Rivera [facility] Work Phone: Start: 01-14-2019 Potassium serum [...] 10-12-2018 End: 10-12-2018 Bilirubin total Yovani Mejias [employer]alife Work Phone: Start: 10-12-2018 End: 10-12-2018 Calcium total Yovani Mejias [employer]alife Work Phone: Start: 10-12-2018 End: 10-12-2018 CBC, EDIF, PLATELET Yovani Mejias [employer] Work Phone: Start: 10-12-2018 End: 10-12-2018 Creatinine blood Yovani Mejias [employer] Work Phone: Start: 10-12-2018 End: 10-12-2018 Drug screening cannabinoids natural Yovani Mejias [employer] Phone: Start: 10-12-2018 End: 10-12-2018 Hepatitis a antibody haab Yovani Mejias [employer] Phone: Start: 10-12-2018 End: 10-12-2018 Hepatitis b core antibody hbcab total Yovani Mejias [employer] Work Phone: Start: 10-12-2018 End: 10-12-2018 Hepatitis b surf antibody hbsab Yovani Mejias [employer] Phone: Start: 10-12-2018 End: 10-12-2018 Hepatitis c antibody Yovani Mejias [employer] Phone: Start: 10-12-2018 End: 10-12-2018 Iaad ia hepatitis b surface antigen Yovani Mejias [employer] Work Phone: Start: 10-12-2018 End: 10-12-2018 Iaad ia hiv-1 ag w/hiv-1 & hiv-2 antbdy single Yovnai Mejias [employer] Phone: Start: 10-12-2018 End: 10-12-2018 PSA screening Yovani Mejias [employer] Phone: Start: 10-12-2018 End: 10-12-2018 Thromboplastin time partial plasma/whole blood Yovani Mejias [employer] Phone: Start: 10-12-2018 End: 10-12-2018 Assay of ethanol Yovani Orr Work Phone: Start: 10-12-2018 End: 10-12-2018 Drug/substance definitive qual/quant nos 7/more Yovani Orr Work Phone: Start: 10-12-2018 End: 10-12-2018 Protein total xcpt refractometry urine Yovani Orr Work Phone: Start: 10-12-2018 End: 10-12-2018 VOLUME MEASURED Yovani Orr Work Phone: H/O: liver recipient Liver repla vida by transplant Steve S Tammy MBBS Work Phone: H/O: liver recipient Liver [...] transplant -donor kidney transplant recipient Steve S Tammy MBBS Work Phone: History of renal transplant Kidney replaced by transplant Rebeca Gutierrez SCREEDMAN-EXPEDITER CLERK Work Phone: Plan of Treatment Date Care Activity Detail Author Start: 09-20-2029 Screening for malignant neoplasm of colon [facility] Start: 10-24-2025 Potassium [Moles/volume] in Serum or Plasma POTASSIUM [facility] Start: 08-15-2025 Potassium [Moles/volume] in Serum or Plasma POTASSIUM [facility] Start: 07-04-2025 Potassium [Moles/volume] in Serum or Plasma POTASSIUM [facility] Start: 06-20-2025 Potassium [Moles/volume] in Serum or Plasma POTASSIUM [facility] Start: 06-16-2025 End: 06-16-2025 Patient encounter procedure [facility] [place] [facility] Start: 06-13-2025 Potassium [Moles/volume] in Serum or Plasma POTASSIUM [facility] Start: 05-23-2025 Potassium [Moles/volume] in Serum or Plasma POTASSIUM [facility] Start: 03-28-2025 Potassium [Moles/volume] in Serum or Plasma POTASSIUM [facility] Start: 03-21-2025 Potassium [Moles/volume] in Serum or Plasma POTASSIUM [facility] Start: 02-28-2025 Potassium [Moles/volume] in Serum or Plasma POTASSIUM [facility] Start: 02-10-2025 Medicare Annual Wellness (AWV) Medicare Annual Wellness (AWV) [facility] Start: 01-23-2025 Potassium [Moles/volume] in Serum or Plasma POTASSIUM [facility] Start: 10-25-2024 End: 10-25-2024 Patient encounter procedure 10/25/2024 8:40 AM EST Office Visit [facility] [address] [place] [address] Zuly Bruno NP [address] [place] [phone] [facility] Start: 09-29-2024 Influenza vaccination Influenza Vaccine (#1) [facility] Comment on above: Postponed from 07/31/2024 (Patient Refus ed) Start: 09-07-2024 End: 09-07-2024 Telemedicine consultation with patient 09/07/2024 3:00 PM EDT Telemedicine Infectious Diseases Care [facility] [address] 4th [place] [phone] Evan White DO [address] [place] [address] Infectious Diseases Care [facility] Start: 08-31-2024 Screening for malignant neoplasm of lung [facility] Start: 07-31-2024 Influenza vaccination INFLUENZA VACCINE (#1) [facility] Start: 06-17-2024 End: 06-17-2024 ambulatory [facility] [place] [facility] Start: 06-17-2024 End: 06-17-2024 Patient encounter procedure [facility] Start: 03-22-2024 Fasting lipid profile LIPID SCREENING [facility] Start: 03-22-2024 Lipid panel [facility] Start: 02-26-2024 End: 02-26-2024 Patient encounter procedure 02/26/2024 9:30 AM EDT Office Visit [facility] [address] [place] [phone] Candie Almaguer MD [address] [place] [phone] [facility] Start: 02-11-2024 End: 02-11-2024 Patient encounter procedure 02/11/2024 10:30 AM EDT Office Visit [facility] [address] [place] [phone] Zuly Bruno NP [address] [place] [address] [facility] Start: 02-09-2024 End: 02-09-2024 Telemedicine consultation with patient 02/09/2024 3:30 PM EDT Telemedicine Infectious Diseases Care [facility] [address] [phone] Hakeem Alamo MD [address] [address] Infectious Diseases Care [facility] Start: 01-15-2024 End: 01-15-2024 ambulatory [facility] Start: 01-15-2024 End: 01-15-2024 Patient encounter procedure [facility] Start: 01-06-2024 End: 01-06-2026 Echocardiogram 2D complete Echocardiogram 2D complete Echocardiography Routine DARLENE (obstructive sleep apnea) Primary hypertension (CMS/HCC) Bilateral lower extremity edema Shortness of breath Expected: 01/06/2024 (Approximate), Expires: 01/06/2026 [facility] Work Phone: Comment on above: Expected: 01/06/2024 (Approximate), Expi res: 01/06/2026 Start: 01-06-2024 End: 01-06-2024 Patient encounter procedure 01/06/2024 9:00 AM EST [facility] [address] [place] [phone] Zuly Bruno NP [address] [place] [phone] [facility] Start: 12-08-2023 End: 09-07-2024 CT Chest WO contrast [facility] Work Phone: Start: 12-01-2023 COVID-19 VACCINE (2 - Moderna risk series) COVID-19 VACCINE (2 - Moderna risk series) [facility] Start: 09-23-2023 End: 09-23-2023 ambulatory Infectious Diseases Care [facility] Start: 09-23-2023 End: 09-23-2023 Telemedicine consultation with patient 09/23/2023 4:00 PM EDT Telemedicine Infectious Diseases Care [facility] [address] [place] [phone] Hakeem Alamo MD [address] [place] [address] Infectious Diseases Care [facility] Start: 09-15-2023 End: 09-10-2024 ITRACONAZOLE LEVEL [facility] Start: 08-25-2023 End: 08-25-2024 ALLOSCREEN RECIPIENT (POST TX PRA) ALLOSCREEN RECIPIENT (POST TX PRA) Lab Routine Kidney replaced by transplant Aftercare following organ transplant Immunosuppressed status High risk medication use Other general symptoms and signs Abnormal blood chemistry Expected: 08/25/2023, Expires: 08/25/[address] [facility] Comment on above: Expected: 08/25/2023, Expires: Start: 07-31-2023 Influenza vaccination [facility] Start: 06-12-2023 End: 06-12-2023 Patient encounter procedure 06/12/2023 Office Visit Transplant Surgery Steve Munoz MBBS [address] [place] [address] [facility] Start: 03-11-2023 End: 03-11-2023 Telemedicine consultation with patient 03/11/2023 Telemedicine Urology Ryan Yepez MD [address] [facility] [address] [place] [address] [facility] [place] [facility] Start: 01-16-2023 End: 01-16-2023 Patient encounter procedure 01/16/2023 Office Visit Transplant Surgery [facility] Start: 10-31-2022 End: 10-31-2022 Patient encounter procedure 10/31/2022 Office Visit Transplant Surgery Steve Munoz MBBS [address] [place] [address] [facility] Start: 09-10-2022 End: 09-10-2023 PSA screening PSA, SCREENING Lab Routine BPH with obstruction/lower urinary tract symptoms Encounter for screening for malignant neoplasm of prostate Expected: 09/10/2022 (Approximate), Expires: 09/10/[address] [facility] Comment on above: Expected: 09/10/2022 (Approximate), Expi res: 09/10/2023 Start: 08-11-2022 End: 08-11-2022 Patient encounter procedure 08/11/2022 Office Visit Ryan Webster MD [address] [facility] [address] [place] [address] [facility] [place] Start: 07-31-2022 Influenza vaccination [facility] Start: 07-07-2022 End: 07-07-2022 Patient encounter procedure 07/07/2022 Office Visit Ryan Webster MD [address] [facility] [address] [place] [phone] [facility] [place] Start: 07-07-2022 End: 07-07-2023 FLUORO IMAGING FOR UROLOGY [facility] Comment on above: Expected: 07/07/2022, Expires: 3 1 Occurrences starti ng 07/07/2022 until 07/07/2022 Start: 06-27-2022 End: 06-27-2022 Patient encounter procedure 06/27/2022 Office Visit Ryan Webster MD [address] [facility] [address] [place] [address] [facility] [place] Start: 06-27-2022 End: 06-27-2023 Basic metabolic 2000 panel - Serum or Plasma BASIC METABOLIC PANEL Lab Routine Other hydronephrosis Expected: 06/27/2022, Expires: 06/27/[address] [facility] Comment on above: Expected: 06/27/2022, Expires: 3 Start: 06-27-2022 End: 06-27-2022 Patient encounter procedure 06/27/2022 Appointment Computerized Tomography Scan Ryan Yepez MD [address] [facility] [address] [place] [address] Department of Radiology Start: 06-15-2022 End: 05-16-2023 CT Abdomen and Pelvis WO contrast CT ABDOMEN/PELVIS WITHOUT CONTRAST Imaging Routine FAYE (acute kidney injury) Expected: 06/15/2022 (Approximate), Expires: 05/16/[address] [facility] Work Phone: Comment on above: Expected: 06/15/2022 (Approximate), Expi res: 05/16/2023 Start: 06-12-2022 End: 06-12-2022 Patient encounter procedure 06/12/2022 Office Visit Transplant Surgery Steve Munoz MBBS [address] [place] [address] [facility] Start: 06-11-2022 End: 06-11-2023 BK VIRUS DNA QN, PCR, PLASMA BK VIRUS DNA QN, PCR, PLASMA Lab Routine Kidney replaced by transplant Liver replaced by transplant Abnormal blood chemistry Expected: 06/11/2022, Expires: 06/11/[address] [facility] Comment on above: Expected: 06/11/2022, Expires: Start: 06-04-2022 End: 06-04-2022 Patient encounter procedure 06/04/2022 Office Visit [facility]iology [facility] Start: 10-18-2021 End: 10-18-2021 Patient encounter procedure 10/18/2021 Office Visit Transplant Surgery Steve Munoz MBBS [address] [place] [address] [facility] Start: 07-31-2021 Influenza vaccination INFLUENZA VACCINE (#1) [facility] Start: 07-26-2021 End: 07-26-2021 Patient encounter procedure 07/26/2021 Office Visit Transplant Surgery [facility] Start: 2021 Prostate specific antigen measurement [facility] Start: 2021 Screening for malignant neoplasm of lung LUNG CANCER SCREENING [facility] Start: 2021 Zoster vaccine hzv live for subcutaneous use ZOSTER (SHINGLES) VACCINE (1 of 2) [facility] Start: 09-20-2020 Colonoscopy COLORECTAL CANCER SCREENING DISCUSSION [facility] Start: 09-20-2020 Screening for malignant neoplasm of colon [facility] Start: 07-31-2019 Influenza vaccination Flu vaccine (#1) [place], [place] Start: 05-22-2019 Annual Wellness Visit (AWV) Annual Wellness Visit (AWV) [place], [place] Start: 04-18-2019 End: 10-19-2019 Ultrasonography of abdomen US ABDOMEN RUQ/LIVER/GB Routine Cirrhosis of liver without ascites, unspecified hepatic cirrhosis type Expected: 04/18/2019 (Approximate), Expires: 10/19/2019 [facility] Work Phone: Comment on above: Expected: 04/18/2019 (Approximate), Expi res: 10/19/2019 Start: 01-25-2019 End: 01-25-2019 Ambulatory 01/25/2019 Office Visit Gastroenterology Christin Elizabeth, SCREEDMAN-EXPEDITER CLERK [address] [place] [address] Division of Gastroenterology and Hepatology Gavin Start: 11-19-2018 End: 11-19-2018 Ambulatory 11/19/2018 Appointment Pulmonary Diagnostics [facility] Start: 11-19-2018 End: 11-19-2018 Ambulatory [facility] Start: 10-19-2018 End: 10-19-2018 Ambulatory Ultrasound Jakob Start: 10-12-2018 End: 10-12-2019 Hemoglobin A1c/Hemoglobin.total mass fraction (Bld) HEMOGLOBIN A1C Routine Alcoholic cirrhosis, unspecified whether ascites present Pre-transplant evaluation for liver transplant Expected: 10/12/2018, Expires: 10/12/2019 [facility] Work Phone: Comment on above: Expected: 10/12/2018, Expires: 9 Start: 10-12-2018 End: 10-12-2019 TYPE AND SCREEN - NOT FOR TRANSFUSION TYPE AND SCREEN - NOT FOR TRANSFUSION Routine Alcoholic cirrhosis, unspecified whether ascites present Pre-transplant evaluation for liver transplant Expected: 10/12/2018, Expires: 10/12/2019 [facility] Work Phone: Comment on above: Expected: 10/12/2018, Expires: 9 Start: 07-31-2018 Influenza vaccination INFLUENZA VACCINE (#1) [facility] Work Phone: Start: 2011 Fasting lipid profile LIPID SCREENING [facility] Work Phone: Start: 2011 Lipid screen Lipid screen [place], [place] Start: 1990 DTaP/Tdap/Td vaccine (1 - Tdap) DTaP/Tdap/Td vaccine (1 - Tdap) [place], [place] Start: 1990 Hepatitis B vaccination HEP B VACCINE (1 of 3 - 19+ 3-dose series) [facility] Start: 1990 Hepatitis B Vaccine (1 of 3 - Risk Recombivax 3-dose series) Hepatitis B Vaccine (1 of 3 - Risk Recombivax 3-dose series) [place], [place] Start: 1990 Third diphtheria, tetanus and acellular pertussis (DTaP) vaccination [facility] Start: 1990 Zoster vaccine hzv live for subcutaneous use ZOSTER (SHINGLES) VACCINE (1 of 2) [facility] Start: [address] [facility] Start: 1989 Tetanus vaccination TETANUS [facility] Start: 1986 HIV screen HIV screen [place], [place] Start: 02-17-1984 HIV screening HIV SCREENING DISCUSSION [facility] Work Phone: Start: 1983 COVID-19 VACCINE (1) COVID-19 VACCINE (1) [facility] Start: 1982 DTaP/Tdap/Td vaccine (1 - Tdap) DTaP/Tdap/Td vaccine (1 - Tdap) [place] Start: 1977 Pneumococcal 0-64 years Vaccine (1 of 3 - PCV13) Pneumococcal 0-64 years Vaccine (1 of 3 - PCV13) [place] Start: 1977 PNEUMOCOCCAL VACCINE SERIES (1 - PCV) PNEUMOCOCCAL VACCINE SERIES (1 - PCV) [facility] Start: 1977 PNEUMOCOCCAL VACCINE SERIES (1 of 2 - PCV) PNEUMOCOCCAL VACCINE SERIES (1 of 2 - PCV) [facility] Start: [address] [facility] Start: 02-17-1976 COVID-19 VACCINE (#1) COVID-19 VACCINE (#1) [facility] Start: 02-17-[address] [facility] Start: 1971 COVID-19 VACCINE (#1) COVID-19 VACCINE (#1) [facility] Start: 1971 Hepatitis B vaccination HEP B VACCINE (1 of 3 - 3-dose series) [facility] Start: 1971 Medicare Annual Wellness (AWV) Medicare Annual Wellness (AWV) [facility] Start: 1971 Screening for malignant neoplasm of colon [facility] Start: 1971 Tetanus vaccination [facility] BK VIRUS DNA QN, PCR , PLASMA BK VIRUS DNA QN, PCR, PLASMA Lab Routine Kidney replaced by transplant Liver replaced by transplant Abnormal blood chemistry 06/12/2022 3:38 PM EDT [facility] CALCULI, URINARY (KIDNEY STONE) CALCULI, URINARY (KIDNEY STONE) Fluids Routine 05/19/2022 8:16 AM EDT [facility] Work Phone: CANNABINOIDS, QUANT (URINE)THC CONFIRMATION CANNABINOIDS, QUANT (URINE)THC CONFIRMATION Routine Alcoholic cirrhosis, unspecified whether ascites present ESRD (end stage renal disease) on dialysis Pre-transplant evaluation for liver transplant 10/12/2018 12:57 PM EST [facility] Work Phone: End: 09-10-2024 CHEM 6 (LYTES, BUN CREA) [facility] EBV VCA IGG AB EBV VCA IGG AB R outine Alcoholic cirrhosis, unspecified whether ascites present ESRD (end stage renal disease) on dialysis Pre-transplant evaluation for liver transplant 10/12/2018 12:57 PM [facility] Work Phone: Fungus identified in Unspecified specimen by Culture [facility] HLA TYPING (SOLID ORGAN) HLA TYPING (SOLID ORGAN) Routine Alcoholic cirrhosis, unspecified whether ascites present ESRD (end stage renal disease) on dialysis Pre-transplant evaluation for liver transplant 10/12/2018 12:57 PM [facility] Work Phone: HSV 1 AND 2 IGG ANTIBODY HSV 1 AND 2 IGG ANTIBODY Routine Alcoholic cirrhosis, unspecified whether ascites present ESRD (end stage renal disease) on dialysis Pre-transplant evaluation for liver transplant 10/12/2018 12:57 PM [facility] Work Phone: MR Abdomen WO and W contrast IV MRI ABDOMEN WITH AND WITHOUT CONTRAST Imaging Routine Liver lesion Ordered: 06/17/[address] [facility] Comment on above: Ordered: 06/17/2024 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 specific culture [facility] PLACEMENT NEPHROSTOM Y CATHETER PERCUTANEOUS W/ IMAGE GUIDANCE PLACEMENT NEPHROSTOMY CATHETER PERCUTANEOUS W/ IMAGE GUIDANCE Imaging Routine Hydronephrosis due to obstruction of ureteral orifice FAYE (acute kidney injury) 05/17/2022 11:08 AM EDT [facility] MI POST VOID RESIDUAL MI POST VO ID RESIDUAL MI - OFFICE PERFORMED Routine BPH with obstruction/lower urinary tract symptoms Ordered: 09/10/[address] [facility] Comment on above: Ordered: 09/10/2022 PTH INTACT PTH INTACT Routi ne Alcoholic cirrhosis, unspecified whether ascites present ESRD (end stage renal disease) on dialysis Pre-transplant evaluation for liver transplant 10/12/2018 12:57 PM [facility] Work Phone: RUBEOLA IGG AB (IMMU NE STATUS) RUBEOLA IGG AB (IMMUNE STATUS) Routine Alcoholic cirrhosis, unspecified whether ascites present ESRD (end stage renal disease) on dialysis Pre-transplant evaluation for liver transplant 10/12/2018 12:57 PM [facility] Work Phone: End: 01-16-2024 Standard ECG ECG ECG Routine One Time for 1 Occurrences starting 01/16/2024 until 01/16/[address] [facility] Comment on above: One Time for 1 Occurrences starting 12/31 until 01/16/2024 End: 09-10-2024 TACROLIMUS LEVEL, TROUGH (PRE DRUG LEVEL) [facility] VARICELLA IGG AB (IM M STATUS) VARICELLA IGG AB (IMM STATUS) Routine Alcoholic cirrhosis, unspecified whether ascites present ESRD (end stage renal disease) on dialysis Pre-transplant evaluation for liver transplant 10/12/2018 12:57 PM [facility] Work Phone: Immunizations Immunization Date Immunization Notes Care Provider Zeeshan marquez 11-03-2023 influenza virus vacc ine, unspecified formulation Generic Provider [facility] 11-03-2023 Influenza, injectabl e, Madin Jing Canine Kidney, preservative free, quadrivalent Generic Provider [facility] 11-03-2023 Moderna SARS-CoV-2 50mcg/0.5mL Booster Generic Provider [facility] 08-28-2022 influenza, injectabl e, quadrivalent, preservative free Generic Provider [facility] 09-30-2021 influenza, injectabl e, quadrivalent, preservative free Generic Provider [facility] 10-16-2020 influenza, injectabl e, quadrivalent, contains preservative Generic Provider [facility] Payers Date Payer Category Payer Unknown [id number] 2019 Unknown NURSING HOMES [facility] HALFW[facility] [id number] 2019-Present [id number] [id number] [place] [facility] DEPT OF JOB xxxxxxxxxxxx 2018-Present [phone] [address] [place] [address] xxxxxxxxxxxx [id number] .[id number] 2018 Medicaid MEDICAID MEDICAI [id number] 2018-Present [address] [place] [address] [id number] .[id number] 2018 Medicaid [id number]. 1.13.172.2.7.3 .[id number] 2018 Medicare MEDICARE MEDICAR E PART A AND B xxxxxxxxxxx 2018-Present [phone] [address] [address] [place] [address] xxxxxxxxxxx [id number] .[id number] 2018 Medicare [id number] 2018 Medicare MEDICARE MEDICAR E A AND B [id number] 2018-Present [address] [place] [address] [id number] [id number].3 .[id number] 2018 Medicare [id number]. 1.13.172.2.7.3 .952857.315 1971 Unknown [id number] 2.16840.1.045379.3.579.2.173 1971 Unknown [id number] 2.16.840.1.491175.3.579.2.173 1971 Unknown [id number] 2.16.840.1.526758.3.579.2.173 1971 Unknown [id number] 2.16.840.1.536578.3.579.2.173 1971 Unknown [id number] 2.16.840.1.452028.3.579.2.173 1971 Unknown [id number] 2.16.840.1.809141.3.579.2.173 1971 Unknown [id number] 2.16.840.1.550773.3.579.2.173 1971 Unknown [id number] 2.16.840.1.790200.3.579.2.173 1971 Unknown [id number] 2.16.840.1.308460.3.579.2.647 1971 Unknown [id number] 2.16.840.1.118642.3.579.2.593 1971 Unknown [id number] 2.16.840.1.692594.3.579.2.593 1971 Unknown [id number] 2.16.840.1.625035.3.579.2.593 1971 Unknown [id number] 2.16.840.1.797303.3.579.2.593 1971 Unknown [id number] 2.16.840.1.956397.3.579.2.593 1971 Unknown [id number] 2.16.840.1.594552.3.579.2.593 1971 Unknown [id number] 2.16.840.1.041358.3.579.2.593 1971 Unknown [id number] 2.16.840.1.779214.3.579.2.593 1971 Unknown [id number] 2.16.840.1.623905.3.579.2.593 1971 Unknown [id number] 2.16.840.1.301214.3.579.2.593 1971 Unknown [id number] 2.16.840.1.926733.3.579.2.593 1971 Unknown [id number] 2.16.840.1.289597.3.579.2.593 1971 Unknown [id number] 2.16.840.1.864358.3.579.2.593 1971 Unknown [id number] 2.16.840.1.624325.3.579.2.593 1971 Unknown [id number] 2.16.840.1.838700.3.579.2.593 1971 Unknown [id number] 2.16840.1.609064.3.579.2.594 1971 Unknown [id number] 2.16.840.1.873509.3.579.2.594 1971 Unknown [id number] 2.840.1.852881.3.579.2.594 1971 Unknown [id number] 2.840.1.562822.3.579.2.594 1971 Unknown [id number] 2.840.1.199362.3.579.2.594 1971 Unknown [id number] 2.840.1.013948.3.579.2.594 1971 Unknown [id number] 2.840.1.735540.3.579.2.594 1971 Unknown [id number] 2.840.1.653912.3.579.2.594 1971 Unknown [id number] 2.840.1.961726.3.579.2.594 1971 Unknown [id number] 2.840.1.235071.3.579.2.594 1971 Unknown [id number] 2.840.1.271520.3.579.2.594 1971 Unknown [id number] 2.16840.1.273760.3.579.2.727 1971 Unknown [id number] 2.840.1.641360.3.579.2.727 1971 Unknown [id number] 2.16.840.1.310985.3.579.2.125 9 1971 Unknown [id number] 2.16.840.1.225809.3.579.2.125 9 1971 Unknown [id number] 2.16.840.1.795139.3.579.2.125 9 1971 Unknown [id number] 2.16.840.1.070205.3.579.2.125 9 1971 Unknown [id number] 2.16.840.1.326113.3.579.2.125 9 1971 Unknown [id number] 2.16.840.1.977039.3.579.2.125 9 1971 Unknown [id number] 2.16.840.1.064355.3.579.2.125 9 1971 Unknown [id number] 2.16.840.1.325070.3.579.2.125 9 1971 Unknown [id number] 2.16.840.1.785042.3.579.2.125 9 1971 Unknown [id number] 2.16.840.1.115663.3.579.2.125 9 1971 Unknown [id number] 2.16.840.1.084014.3.579.2.125 9 1971 Unknown [id number] 2.16.840.1.535076.3.579.2.125 9 1971 Unknown [id number] 2.16.840.1.487936.3.579.2.125 9 1971 Unknown [id number] 2.16.840.1.367817.3.579.2.125 9 1971 Unknown [id number] 2.16.840.1.971110.3.579.2.125 9 1959 Medicaid [id number] 1959 Medicare [id number] Social History Date Type Detail Facility Start: 07-19-2018 End: 10-19-2018 Tobacco smoking status NHIS Former smoker [facility] Start: 07-19-1988 End: 05-14-2018 History of tobacco use Current smoker [facility] Work Phone: Start: 07-19-1988 End: 05-14-2018 History of tobacco use Cigarette Smoker [facility] Work Phone: Start: 10-19-2018 End: 09-05-2024 Cigarettes smoked current (pack per day) - Reported [facility] End: 07-19-1994 History of tobacco use Chews Tobacco [facility] Work Phone: Start: 1971 Sex Assigned At Not on file [facility] Work Phone: Start: 11-03-2018 Alcohol intake Current non-drinker of alcohol (finding) [place] Start: 06-22-2018 Alcohol Comment Hx of alcoholism [place] Start: 11-03-2018 End: 09-05-2024 Alcohol intake No [facility] Start: 07-19-2018 Tobacco use and exposure Former user [facility] Start: 09-06-2020 End: 09-05-2024 Alcohol intake Ex-drinker (finding) [facility] Start: 07-19-2018 Alcohol Comment stopped 05/14/[address] [facility] Start: 05-05-2022 End: 01-16-2023 Exposure to SARS-CoV-2 (event) Not sure [facility] Start: 07-07-2018 Gender identity Identifies as male gender (finding) [facility] Start: 01-16-2022 Sexual orientation Heterosexual (finding) [facility] Start: 11-03-2023 Tobacco use and exposure [...] Never smoked tobacco (finding) [facility] Do you belong to any clubs or organizations such as yarsanism groups, unions, fraternal or athletic groups, or school groups? Yes [facility] Are you now , , , , never or living with a partner? [facility] Medical Equipment Procedure Code Equipment Code Equipment Original Text Equipment Identifier Dates [id number] Start: 05-23-2020 [id number] Start: 04-12-2020 [id number] FDA Start: 05-17-2022 Comment on above: Description: Implant time-out completed by intra-procedural staff including this RN, robot technician, and performing physician. The following was [...] 09-08-2024 Functional Status N/A [facility] Clinical Notes 06-14-2021 to 10-31-2024 Gopi Noyola - 10/31/2024 12:18 PM Julianne Edwards - 09/05/2024 3:24 PM Milagros Edwards - 06/23/2024 8:51 AM Hannah Max DO - 06/17/2024 10:00 AM EDTPatient InstructionsPatient Instructions Note Date & Type Note Facility 10-31-2024 History of Present illness Narrative [facility]: Shipping/Pickup: Patient has affirmed needing a refill of the following medications for Shipment (11/01) : Med Name: Mycophenolate 360mg Med Name: Tacrolimus 0.5mg Contact Info: Specialty ([place]) [phone] Jakob [phone] [facility] [phone] David [phone] Bedside Delivery ([facility]) [phone] documented in this encounter [facility] 09-08-2024 Hospital Discharge instructions Patient Education 09/08/2024 [...] urethra. Follow these instructions at home: Take sewc-yak-ezqmavf and prescription medicines only as told by [...] provider. Document Revised: 06/04/2022 Document Reviewed: 06/04/2022 [facility] Patient Education 2023 [employer]. 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 Screening PSA (prostate specific antigen) (Z12.5: Encounter for screening for malignant neoplasm of prostate) No PSA records on file -Will discuss with patient at his follow up Ordered: E&M of New Patient Moderate 45-59 Min 86373 3. History of kidney transplant (Z94.0: Kidney transplant status) 08/29/24 - BUN 18, Cre 1.3, GFR 58 Pt had liver and kidney transplant in 2020 and follows yearly with [facility]. Ordered: E&M of New Patient Moderate 45-59 Min 43256 Orders: tamsulosin, 0.4 mg = 1 cap(s), Oral, BID, X 30 day(s), # 60 cap(s), Refills(s) 11, Pharmacy: [facility], 170, cm, 09/08/24 14:00:00 EDT, Height/Length Dosing, 90, kg, 09/08/24 14:00:00 EDT, Weight Dosing 18486 Measure Post Void residual urine and/or bladder capacity by US- non-imaging Urnls Dip Stick Auto w/o Microscopy POC [id number] Follow-up With When Contact Information Jaguar CASTILLO, [...] Urine Dipstick: Negative (more content not included)... [facility] Comment on above: Result Comment: Elec tronically Signed By: Jaguar CASTILLO, Clementina Mejias\.br\Date and Time Signed: 09/08/24 14:33 EDT 09-08-2024 [...] Follow these instructions at home: ? Take elmf-waz-vqnxnle and prescription medicines only as told by [...] develop side effec (more content not included)... [facility] 09-05-2024 History of Present illness Narrative [facility]: Call Information: Date and Time of Contact: 09/05/2024 3:24 PM Method of Contact: By Phone Contact Type: Prescriptions Contactor: Patient Contactee: [facility] Shipping/Pickup: Medicare B Refill?: No Medication Name: Mycophenolate, prograf Delivery Method: Ship Delivery Location: Home Signature Required: No Receive/Pickup Date: 09/06/2024 Shipping Address: [address] [place] [address] [address] Contact Info: Specialty ([place]) [phone] Jakob [phone] [facility] [phone] David [phone] Bedside Delivery ([facility]) [phone] documented in this encounter [facility] 06-23-2024 History of Present illness Narrative [facility]REACH ADVANC[facility]: Call Information: Date and Time of Contact: 06/23/2024 8:52 AM Method of Contact: By Phone Contact Type: Prescriptions Contactor: [facility] Contactee: Patient Shipping/Pickup: Medicare B Refill?: No Medication Name: Prograf 0.2mg Delivery Method: Ship Delivery Location: Home Signature Required: No Receive/Pickup Date: 06/29/2024 Shipping Address: [address] [place] [address] [address] Contact Info: Specialty (Yanci) [phone] Jakob [phone] [facility] [phone] David [phone] Bedside Delivery ([facility]) [phone] documented in this encounter [facility] 06-17-2024 History of Present illness Narrative -Referring Provider for today's consult: Self, Self -Primary Care Provider: Zuly Bruno History of Present Illness George Styles is a 54 y.o. male who presents to the [facility] Transplant Hepatology Clinic today [...] Left; Surgeon: Jyoti Bryant MD, PhD; Location: [facility] MAIN OR PLACEMENT NEPHROSTOMY CATHETER PERCUTANEOUS W/ IMAGE GUIDANCE 05/17/2022 Surgeon: Enzo Heart DO; Location: [facility] INTERVENTIONAL RADIOLOGY (VIR) LIVER TRANSPLANT, ORTHOTOPIC N/A 04/12/2020 Laterality: N/A; Surgeon: LU Palma; Location: [facility] SAME DAY SURGERY MAIN OR KIDNEY TRANSPLANT W/O LAC [place] NEPHRECTOMY N/A 04/12/2020 Laterality: N/A; Surgeon: LU Palma; Location: [facility] SAME DAY SURGERY MAIN OR OTHER [...] 0.2 06/13/2024 Explant Pathology Pathologic Diagnosis A. [place] liver, orthotopic liver transplant resection (1458 [...] up in 1 year. Daisha Max DO Manager Performance Gastroenterology, Hepatology and Nutrition [facility] Pager: [phone] Images from the original note were not included. 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 Musical Performer: Anayeli Burt Date of Liver Transplant: 04/13/2020 (Kidney), 04/13/2020 (Liver) 4 years, 2 months post Liver/Kidney Transplant Primary Disease: Hypertensive Nephrosclerosis Transplant Associate Dean Of Women: Erma Roe/ Daisha Max Primary Care physician: [...] LAB AND PHARMACY: None Specified [id number] [place] [address] - [address] [facility] [address] [facility] [address] [facility] [address] [place] [address] [facility][id number] [place] [address] [address] [facility] [address] [place] [id number] [facility] Jakob [address], [address] [facility] [address] ROS and SCREEN: Chest Pain: negative Cough: [...] year: no Do you follow with a Combination Machine Tender? yes Do you have a Primary Care [...] PHYSICIAN: documented in this encounter [facility] 06-17-2024 Instructions Ashlee Fair RN - 06/17/2024 10:00 AM EDT - No medication changes from a liver standpoint - A MRI Abdomen has been ordered today. Please call central scheduling at [phone] to schedule or take paper copy to your local hospital - Return to clinic 06/16/2025 TRANSPLANT HEPATOLOGY 3, [facility] as scheduled documented in this encounter [facility] 06-17-2024 History of Present illness Narrative Images from the original note were not included. George Styles is a 54 y.o. 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 No longer follows with a local tuyere fitter. History of Present Illness: Since George was [...] and lab results. Rebeca Gutierrez MSN, RN, SCREEDMAN-BC, CCTN Certified Nurse Practitioner [facility] [address] [facility] [id number] documented in this encounter [facility] 06-17-2024 Instructions JEANNA Hess - 06/17/2024 9:30 AM EDT Tacrolimus - increase to 0.2 mg packet three time per day; goal 3 to 5 ng/dL ; when the itraconazole stops 09/03/2024, reduce to 0.5 mg twice daily. Once your tacrolimus level is 3-5 ng/dL, you may reduce labs to every other week. documented in this encounter [facility] 05-26-2024 History of Present illness Narrative [facility]RE[facility]: Call Information: Date and Time of Contact: 05/26/2024 4:35 PM Method of Contact: By Phone Contact Type: Prescriptions Contactor: [facility] Contactee: Patient Contact Outcome: Left message and Follow-up Contact Info: Specialty ([place]anci) [phone] Jakob [phone] [facility] [phone] David [phone] Bedside Delivery ([facility]) [phone] [facility]RE[facility]ANC[facility]: Call Information: Date and Time of Contact: 05/30/2024 4:52 PM Method of Contact: By Phone Contact Type: Prescriptions Contactor: Patient Contactee: [facility] Shipping/Pickup: Medicare B Refill?: No Medication Name: Myco sod 360mg, Prograf 0.2mg Delivery Method: Ship Delivery Location: Home Signature Required: No Receive/Pickup Date: 06/06/2024 Shipping Address: [address] [place] [address] Contact Info: Specialty ([place]) [phone] [facility] [place] [phone] [facility] [phone] David [phone] Bedside Delivery ([facility]) [phone] documented in this encounter [facility] 05-13-2024 Note [facility] Subjective George Styles is [...] , Rfl: t (more content not included)... [facility] 03-24-2024 History of Present illness Narrative [facility]REACH [facility]ANC[facility]: Call Information: Date and Time of Contact: 03/24/2024 4:14 PM Method of Contact: By Phone Contact Type: Prescriptions Contactor: [facility] Contactee: Patient Contact Outcome: Left message Shipping/Pickup: Medication Name: Prograf 0.2mg pack Contact Info: Specialty ([place]) [phone] [facility] [place] [phone] [facility] [phone] David [phone] Bedside Delivery ([facility]) [phone] [facility] OUTREACH ADVANCED: Call Information: Date and Time of Contact: 03/28/2024 3:58 PM Method of Contact: By Phone Contact Type: Prescriptions Contactor: [facility] Contactee: Patient Contact Outcome: Left message and Call back later Shipping/Pickup: Medication Name: Mycophenolate, prograf Contact Info: Specialty ([place]anci) [phone] [facility] [place] [phone] [facility] [phone] David [phone] Bedside Delivery ([facility]) [phone] [facility] OUTREACH ADVANCED: Call Information: Method of Contact: By Phone Contact Type: Prescriptions Contactor: Patient Contactee: [facility] Shipping/Pickup: Medicare B Refill?: No Medication Name: Mycopheolate 360mg and Prograf Delivery Method: Ship Delivery Location: Home Signature Required: No Receive/Pickup Date: 04/04/2024 Shipping Address: [address] [place] [address] [address] Contact Info: Specialty ([place]) [phone] Jakob [phone] [facility] [phone] David [phone] Bedside Delivery ([facility]) [phone] documented in this encounter [facility] 03-24-2024 History of Present illness Narrative [facility] OUTREACH ADVANCED: Call Information: Date and Time of Contact: 03/24/2024 4:14 PM Method of Contact: By Phone Contact Type: Prescriptions Contactor: [facility] Contactee: Patient Contact Outcome: Left message Shipping/Pickup: Medication Name: Prograf 0.2mg pack Contact Info: Specialty ([place]) [phone] [facility] [place] [phone] [facility] [phone] David [phone] Bedside Delivery ([facility]) [phone] [facility] RX OUTREACH ADVANCED: Call Information: Date and Time of Contact: 03/28/2024 3:58 PM Method of Contact: By Phone Contact Type: Prescriptions Contactor: [facility] Contactee: Patient Contact Outcome: Left message and Call back later Shipping/Pickup: Medication Name: Mycophenolate, prograf Contact Info: Specialty (Butler) [phone] [facility], [place] [phone] [facility] [phone] David [phone] Bedside Delivery ([facility]) [phone] [facility] RX OUTREACH ADVANCED: Call Information: Method of Contact: By Phone Contact Type: Prescriptions Contactor: Patient Contactee: [facility] Shipping/Pickup: Medicare B Refill?: No Medication Name: Mycopheolate 360mg and Prograf Delivery Method: Ship Delivery Location: Home Signature Required: No Receive/Pickup Date: 04/04/2024 Shipping Address: [address] [place] [address] [address] Contact Info: Specialty (Butler) [phone] [facility], [place] [phone] [facility] [phone] David [phone] Bedside Delivery ([facility]) [phone] [facility] RX OUTREACH ADVANCED: Pre-Verification/Specialty Assessment/Disease [...] Within normal limits Contact Info: Specialty (Yanci) [phone] Jakob [phone] [facility] [phone] David [phone] Bedside Delivery ([facility]) [phone] documented in this encounter [facility] 03-02-2024 History of Present illness [...] del of broth Contact Info: Specialty (Yanci) [phone] [facility], [place] [phone] [facility] [phone] David [phone] Bedside Delivery ([facility]) [phone] [facility] RX OUTREACH ADVANCED: Call Information: Date and Time of Contact: 03/02/2024 3:49 PM Method of Contact: By Phone Contact Type: Prescriptions Contactor: [facility] Contactee: Patient Contact Outcome: Left message and Follow-up Shipping/Pickup: Medication Name: Myco 360mg and Prograf 0.2mg Contact Info: Specialty (Yanci) [phone] [facility], [place] [phone] [facility] [phone] David [phone] Bedside Delivery ([facility]) [phone] [facility] RX OUTREACH ADVANCED: Call Information: Date and Time of Contact: 03/02/2024 4:08 PM Method of Contact: By Phone Contact Type: Prescriptions Contactor: [facility] Contactee: Patient Shipping/Pickup: Medicare B Refill?: No Medication Name: Myco 360 / prograf 0.2 Delivery Method: Ship Delivery Location: Home Signature Required: No Receive/Pickup Date: 03/03/2024 Shipping Address: [address] [place] [address] [address] Contact Info: Specialty (Yanci) [phone] [facility], [place] [phone] [facility] [phone] David [phone] Bedside Delivery ([facility]) [phone] documented in this encounter [facility] 02-26-2024 History of Present illness [...] at the [facility] on 02/26/2024 for initial evaluation of [...] Left; Surgeon: Jyoti Bryant MD, PhD; Location: [facility] MAIN OR PLACEMENT NEPHROSTOMY CATHETER PERCUTANEOUS W/ IMAGE GUIDANCE 05/17/2022 Surgeon: Enzo Heart DO; Location: [facility] INTERVENTIONAL RADIOLOGY (VIR) LIVER TRANSPLANT, ORTHOTOPIC N/A 04/12/2020 Laterality: N/A; Surgeon: LU Palma; Location: [facility] SAME DAY SURGERY MAIN OR KIDNEY TRANSPLANT W/O LAC DU FLAMBEAU NEPHRECTOMY N/A 04/12/2020 Laterality: N/A; Surgeon: LU Palma; Location: [facility] SAME DAY SURGERY MAIN OR OTHER [...] qd Antithrombotic: no Statin: no ICD: NA LEGAL COORDINATOR: NA CV Test results: ECHOCARDIOGRAM 01/18/2024 (Final) [...] will be BP control. Candie Almaguer M.D. activities coordinator Advanced Heart Failure Program Division of Cardiovascular Medicine [facility] [email or web address] [phone] fax [phone] documented in this encounter [facility] 02-26-2024 Instructions Marsha Mckeon RN - 02/26/2024 9:30 AM EDT The following instructions were given today: Labs today Follow up with Dr. Almaguer as needed. Your after visit summary (AVS) is viewable in [facility] My Chart. Call RN if you have cardiac questions/concerns M-F 8 to 4:30 ; office # [phone], option 6, then option 2. Guidelines for home management: 1. Continue to monitor weight first thing each morning. 2. Report to the CHF CLINIC ([phone]) any significant weight change. Remember that weight [...] labs/tests run outside of the [facility] and you do not hear from us 1-2 days after they are performed, you must call us to ensure we received the results. Office fax # [phone]. No news does not necessarily mean that your tests are normal, it could mean we did not get the results. For questions/updates: please provide your name with spelling, date of and question or update All calls are prioritized and responses researched, if possible, prior to calls being returned. Call Scheduling for any appointment/procedure verification or changes [phone], option 7 or [facility] Schedulers at [phone], option 1. documented in this encounter [facility] 01-23-2024 Nurse Note Jakob wrap [...] understanding on picking up needed prescriptions [facility] as listed on discharge summary. Patient denies any unanswered questions at this time. Patient has been discharged with all of their belongings, transported via wheelchair on oxygen to front entrance for brother to transport home on home oxygen supply. [facility] 01-23-2024 Miscellaneous Notes Jakob wrap [...] understanding on picking up needed prescriptions at [facility] as listed on discharge summary. Patient [...] Pain): verbalization of pain descriptors George Styles ([id number]) PRE OPERATIVE DIAGNOSIS High output congestive heart failure [I50.83] POST OPERATIVE DIAGNOSIS Post-Op Diagnosis Codes: * High output congestive heart failure [I50.83] PROCEDURE PERFORMED Procedure(s) (LRB): LIGATION ANGIOACCESS AVF (Left) Resection of large aneurysmic vein PRIMARY CLOSURE Yes INTRAOPERATIVE FINDINGS No significant abnormalities SURGEON Surgeons and Role: * Jyoti Bryant MD, PhD - Primary ANESTHESIOLOGIST Anesthesiologist: Celena Tiwari MD; Kehinde Gutierrez MD CNC MACHINE PROGRAMMER: David Jasso APRN-CNC MACHINE PROGRAMMER Chief Radiologic Technologist Assisting: Mini Khan MD SURGICAL STAFF Corporate Analyst: Zoila Lawrence RN Relief Corporate Analyst: Marimar Saravia RN Relief Scrub: Briseyda Self [...] patent, patient breathing easily. Report received from assistant professor surgical technology and report received from anesthesiology. Pt arrived [...] Axillary block. SURGEON(S): Jyoti Bryant MD, PHD RELATIONS DIRECTOR: Mynor Fall MD ESTIMATED BLOOD LOSS: Minimal. [...] Jyoti Bryant MD, PHD ATTENDING SHANNON/Constanza JOB: [id number] DOC: [id number] Patient has been asleep this shift. He [...] overnight coverage, Jasper Gastelum MD, via pager #[phone] Pt- George Styles. Sarah 1082. TM1. Was wondering if he can have his Melatonin order increased to 6mg. Per pt, he usually takes 8mg at home. -SAMI Duffy #[phone] Tati Charles RN Internal Medicine Daily Progress Note Patient: George Styles, 1970, [id number] Physician: Arelis Mera MD, PGY3, Pager #[phone], TM1 service Assessment/Plan: George Styles is a [...] home amlodipine 5mg CAD: non-obstructive CAD on [facility] [...] Mera MD Mr. Styles was admitted to [address] [place] [address]. On admission to [facility], from outside facility a dual RN initial assessment of skin condition was performed by Izzy Gutierrez RN and Leroy Singleton RN. Skin Assessment: Skin within defined limits:Yes Jose Score: 20 Wound Vision Fisher Hand Line images obtained: No LDA Added: No Based [...] when available. documented in this encounter [facility] 01-23-2024 Nurse Note Home Oxygen [...] of oxygen is also required.) [facility] 01-23-2024 History of Present illness [...] mg Oral Daily Kelvin Pacheco MD, MBBS business management professor Transplant nephrology Surgery Post-Op Check Note [...] monitor Leonel Harris DO General Surgery Pager [phone] CM went to bedside to talk with patient. Patient states he has home oxygen through [employer]. He uses 2.5 LNC around the clock. Patient states his brother will bring a tank for discharge. Anticipate patient will discharge tomorrow AM. Brother updated. Girish Oro RN, BSN Clinical Home Appliance Installer Please note that I am a float telephonic case manager and may not cover the same service every day. Please call the main Case Management office at [phone] for up-to-date coverage. Verified patients identity using [...] Daily Progress Note Patient: George Styles, 1970, [id number] Physician: Yury Ozuna MD, PGY1, Pager #[phone], HI2 service Assessment/Plan: George Styles is a 53 [...] by transplant surgery on 01/22 (NPO at ar, updated type & screen) S/p Liver-Kidney Transplant [...] home amlodipine 5mg CAD: non-obstructive CAD on [facility] [...] with the Nutrition plan outlined in the Street Sprinkler s note. DVT prophylaxis with lovenox Diet [...] in resident note. Kelvin Pacheco MD, MBBS business management professor Transplant nephrology Patient seen and examined [...] Oral BID AC Kelvin Pacheco MD, MBBS business management professor Transplant nephrology Images from the original note were not included. Internal Medicine Daily Progress Note Patient: George Styles, 1970, [id number] Physician: Yury Ozuna MD, PGY1, Pager #[phone], TM1 service Assessment/Plan: George Styles is a [...] home amlodipine 5mg CAD: non-obstructive CAD on [facility] [...] with the Nutrition plan outlined in the Street Sprinkler s note. DVT prophylaxis with lovenox Diet [...] further questions. Name: Heidy Chatman Phone #: [phone] Date/Time: 01/19/2024 12:08 PM Time Spent: 15 minutes Associated attestation - Fidelina Alarcon RPH - 01/19/2024 12:41 PM EST Department of Pharmacy Admission Medication Reconciliation Note Patient: George Styles Room/Bed: 1082/A I have reviewed the home medication list with the Jamb Cutter. The home medication list status is: complete. All changes to the home medication list have been updated in [facility]HIS. Updated FURNACE FITTER Med List: Prior to Admission Medications Prescriptions [...] further questions. Name: Fidelina Alarcon, [facility] Phone #: [phone] Date/Time: 01/19/2024 12:41 PM Internal Medicine Daily Progress Note Patient: George Styles, 1970, [id number] Physician: Yury Ozuna MD, PGY1, Pager #[phone], EK5 service Assessment/Plan: Acute Hypoxic Respiratory Insufficiency GARCIA, [...] home amlodipine 5mg CAD: non-obstructive CAD on [facility] [...] with the Nutrition plan outlined in the Street Sprinkler s note. DVT prophylaxis with lovenox Diet [...] Temp: SpO2: 97% O2 Device: nasal cannula (01/19/24 0900) Flow (L/min): 2 (01/19/24 0900) Gen: NAD [...] Oral Daily Kelvin Pacheco MD, MBAPOORVA business management professor Transplant nephrology Internal Medicine Daily Progress Note Patient: George Styles, 1970, [id number] Physician: Yury Ozuna MD, PGY1, Pager #[phone], TM1 service Assessment/Plan: Updates: - continued diuresis [...] home amlodipine 5mg CAD: non-obstructive CAD on [facility] [...] with the Nutrition plan outlined in the Street Sprinkler s note. DVT prophylaxis with lovenox Diet [...] resident note. Kelvin Pacheco MD, LU business management professor Transplant nephrology Pt known to chain sales representative from previous admissions. Provided emotional and spiritual support. Patient shared about: family support, medical course Application Security Developer provided: - Supportive presence - Active listening - Validation of feelings/emotions Patient encouraged to request a chain sales representative as needed. Chaplains are available in-house 24 hours a day and 7 days a week. For urgent matters in [facility], please page [phone]. If the request is not urgent, please enter a consult. Consults are responded to within 24 hours. Senior Staff Application Security Developer Angie Singh Mdiv, [facility] [place] [phone] [email or web address] On-call : call center recruiter David: 22/06 Pager ,BS, and Brock Hernandez Pager [phone] 01/18/24 1342 Clinical Encounter Type Visited With Patient Visit Type Introduction Pastoral Time Spent 15 min Referral Other (See Comment) (rounding) Spiritual Assessment Emotional Observation Coping well;Anxiety Hope Observation Specific hope focus Support Observation By Family Interventions Provided Active listening;Supportive presence Facilitated Verbalization of feelings;Identifying support system;Identifying Sources of spiritual well-being Explored Expectations;Treatment decisions X Ray Developer Education X Ray Developer Service Available Yes Educated Patient Outcomes Patient [...] interaction. Name: Fidelina Alarcon RPH Phone #: [phone] Date/Time: 01/18/2024 9:56 AM Discharge Planning Patient [...] Yes Name and Contact information: Gian Styles ([phone]) Would you like to add additional adult [...] Is the patient from a facility or [place] facility?: No Patient lives with: Alone Living Environment: [...] oxygen?: Yes Oxygen Provider and Contact : [employer] Liter-Flow?: 20/01- Order for oxygen use?: unknown [...] patient on Anticoagulation? : No [facility] [id number] [place] [address] - [address] [address] Heater Helper Does the patient or indirect sales representative express financial concerns? : No Employed?: Disabled Coping/Stress Concerns about patient s coping and stress?: No Concerns about patient s caregiver s coping and stress?: No Values and Beliefs Cultural or mormon practices that may impact discharge planning and/or [...] Plan 1. Identified self and role as Home Appliance Installer. 2. Confirmed and updated demographics and treatment team. 3. Home Appliance Installer will continue to follow with medical team for any other additional discharge needs. Kasandra DON RN [facility] [phone] *Please note I am float CM and work Thursday and Thursday every other week. Please call [phone] for assist in my absence. Internal Medicine Daily Progress Note Patient: George Styles, 1970, [id number] Physician: Yury Ozuna MD, PGY1, Pager #[phone], SE1 service Assessment/Plan: Updates: - continue diuresis with [...] home amlodipine 5mg CAD: non-obstructive CAD on [facility] [...] ordered 2D echo. Kevin Prince MD, SERA Manager Performance of Clinical Medicine [facility] documented in this encounter [facility] 01-23-2024 Plan of care note [...] Pain): verbalization of pain descriptors [facility] 01-22-2024 Hospital Discharge instructions Arelis [...] your doctor for further instructions. Please call [phone], Option 1 or [phone] to schedule your appointment with the Heart Failure Clinic. Arelis Mera MD - 01/22/2024 3:08 PM EST You can change your dressing 48 hours from the procedure The following attachments cannot be sent through Care Everywhere.Heart Failure: Avoiding Triggers (Salvadorean)Heart Failure: Limiting Sodium (Salvadorean)Pain and Pain Control ([facility]) (Salvadorean)documented in this encounter [facility] 01-22-2024 Surgery Postoperative evaluation and management note George Styles ([id number]) PRE OPERATIVE DIAGNOSIS High output congestive heart failure [I50.83] POST OPERATIVE DIAGNOSIS Post-Op Diagnosis Codes: * High output congestive heart failure [I50.83] PROCEDURE PERFORMED Procedure(s) (LRB): LIGATION ANGIOACCESS AVF (Left) Resection of large aneurysmic vein PRIMARY CLOSURE Yes INTRAOPERATIVE FINDINGS No significant abnormalities SURGEON Surgeons and Role: * Jyoti Bryant MD, PhD - Primary ANESTHESIOLOGIST Anesthesiologist: Celena Tiwari MD; Kehinde Gutierrez MD CNC MACHINE PROGRAMMER: David Jasso APRN-CNC MACHINE PROGRAMMER Chief Radiologic Technologist Assisting: Mini Khan MD SURGICAL STAFF Corporate Analyst: Zoila Lawrence RN Relief Corporate Analyst: Marimar Saravia RN Relief Scrub: Briseyda Self Scrub Person: Cinda Mai RN Resident Assisting: Leonel Harris DO Fellow: Miki Mcgowan MD, MBBS COMPLICATIONS None ESTIMATED BLOOD LOSS Minimal SPECIMENS No specimen sent * No specimens in log * Jyoti Bryant MD, PhD January 22, 2024 1:34 PM [facility] Work Phone: 01-22-2024 Nurse Note Arrived to PACU assisted by anesthesiology. Connected to monitors. Turned side to side, OR linens removed, repositioned. Airway patent, patient breathing easily. Report received from assistant professor surgical technology and report received from anesthesiology. Pt arrived awake. VSS. Sats slightly low. Pulm rehab used. Sats currently 3lpm @ 93%. Pt states he uses CPAP nocturnally. A&Ox4. Nerve block left arm, elevated. [facility] 01-22-2024 Surgery Postoperative evaluation and [...] Axillary block. SURGEON(S): Jyoti Bryant MD, PHD RELATIONS DIRECTOR: Mynor Fall MD ESTIMATED BLOOD LOSS: Minimal. [...] Jyoti Bryant MD, PHD ATTENDING SHANNON/Constanza JOB: [id number] DOC: [id number] [facility] 01-22-2024 Plan of care note [...] 1939 Plan Of Care Reviewed With: patient [facility] 01-20-2024 Consult note Associated Order (s): IP CONSULT TO SURGERY - TRANSPLANT (RENAL) Images from the original note were not included. TRANSPLANT SURGERY CONSULT NOTE: Consult: 01/20/2024, 4:03 PM Cook House Laborer: Starla Morris MD Reason for Consult: Requesting Dr Carson Bryant for AVF revision/closure given new onset high output heart failure George Styles is a 53 y.o. male CURRENT HOSPITALIZATION LOS: Admit Date: 01/16/2024 [facility] Hospital LOS: 4 days George [...] 04/12/2020 Laterality: N/A; Surgeon: LU Palma; Location: [facility] SAME DAY SURGERY MAIN OR KIDNEY TRANSPLANT W/O LAC DU FLAMBEAU NEPHRECTOMY N/A 04/12/2020 Laterality: N/A; Surgeon: LU Palma; Location: [facility] SAME DAY SURGERY MAIN OR OTHER [...] PRN Jasper Groves MD 6 mg at 02/20/24 2044 Mycophenolate sodium (MYFORTIC) tablet DR 360 [...] seen and staffed with Dr. Mcgowan fellow cone cleaner Thank you, Starla Morris MD Associated attestation - Jyoti Bryant MD, PhD - 01/22/2024 10:54 AM EST Beata Bryant MD, PhD, have independently seen and examined the patient, reviewed the labs, discussed the patient with the fellow/resident and agree with the note. [facility] Work Phone: 01-20-2024 Consult note Associated Order (s): IP CONSULT TO SURGERY - TRANSPLANT (RENAL) Images from the original note were not included. TRANSPLANT SURGERY CONSULT NOTE: Consult: 01/20/2024, 4:03 PM Cook House Laborer: Starla Morris MD Reason for Consult: Requesting Dr Carson Bryant for AVF revision/closure given new onset high output heart failure George Styles is a 53 y.o. male CURRENT HOSPITALIZATION LOS: Admit Date: 01/16/2024 [facility] Hospital LOS: 4 days George [...] GUIDANCE 05/17/2022 Surgeon: Enzo Heart DO; Location: [facility] INTERVENTIONAL RADIOLOGY (VIR) LIVER TRANSPLANT, ORTHOTOPIC N/A 04/12/2020 Laterality: N/A; Surgeon: LU Palma; Location: [facility] SAME DAY SURGERY MAIN OR KIDNEY TRANSPLANT W/O LAC DU FLAMBEAU NEPHRECTOMY N/A 04/12/2020 Laterality: N/A; Surgeon: LU Palma; Location: [facility] SAME DAY SURGERY MAIN OR OTHER [...] mg 10 mg Intravenous Q6H PRN Yury Ouzna MD 10 mg at 01/17/24 2345 Sodium [...] seen and staffed with Dr. Mcgowan fellow cone cleaner Thank you, Starla Morris MD Associated attestation - Jyoti Bryant MD, PhD - 01/22/2024 10:54 AM EST I. Jyoti Bryant MD, PhD, have independently seen and examined the patient, reviewed the labs, discussed the patient with the fellow/resident and agree with the note. Associated Order(s): IP CONSULT TO HEPATOBILIARY [facility] OS Main Hepatology Consult WebExchange --> IM Consult Serv [facility] --> [facility] Main Hepatology consult service [...] 04/12/2020 Laterality: N/A; Surgeon: LU Palma; Location: [facility] SAME DAY SURGERY MAIN OR KIDNEY TRANSPLANT W/O LAC DU FLAMBEAU NEPHRECTOMY N/A 04/12/2020 Laterality: N/A; Surgeon: LU Palma; Location: [facility] SAME DAY SURGERY MAIN OR OTHER [...] (order for outpatient) Please SecureChat or Call ([phone]) for any questions. Await attending attestation for final recommendations. Hank Noel MD Division of Gastroenterology, Hepatology, and Nutrition Clinical Fellow, PGY-5 Pager: [phone] For urgent/stat calls or consults 5pm to 7am, please page the on-call GI fellow on IronPlan[employer]. [facility]--> Internal Medicine--> Gastroenterology, Hepatology, & Nutrition--> 1st Call Fel Alysia For urgent/stat calls or consults 7am to 5pm during the weekend, please page the on-call GI fellow on [employer]. [facility]--> Internal Medicine--> Gastroenterology, Hepatology, & Nutrition--> All Hep & East Wknd Cons Fel Day For follow up questions regarding this patient 7am to 5pm during the weekday, contact the Hepatology consults fellow or CARLOS A on [employer]. [facility]--> Internal Medicine--> Gastroenterology, Hepatology, & [...] MSc documented in this encounter [facility] 01-19-2024 Nurse Note 01/19/24 0900 [...] rest, 95-96% when talking/moving. Paulette Cordon, RN [facility] 01-19-2024 Nurse Note Paged overnight coverage, Jasper Gastelum MD, via pager #[phone] Pt- George Styles. Sarah 1082. TM1. Was wondering if he can have his Melatonin order increased to 6mg. Per pt, he usually takes 8mg at home. -SAMI Duffy #[phone] Tati Charles RN [facility] 01-18-2024 Consult note Associated Order (s): IP CONSULT TO HEPATOBILIARY N [facility] Main Hepatology Consult WebExchange --> IM Consult Serv [facility] --> [facility] Main Hepatology consult service Fellow [...] GUIDANCE 05/17/2022 Surgeon: Enzo Heart DO; Location: [facility] INTERVENTIONAL RADIOLOGY (VIR) LIVER TRANSPLANT, ORTHOTOPIC N/A 04/12/2020 Laterality: N/A; Surgeon: LU Palma; Location: [facility] SAME DAY SURGERY MAIN OR KIDNEY TRANSPLANT W/O LAC DU FLAMBEAU NEPHRECTOMY N/A 04/12/2020 Laterality: N/A; Surgeon: LU Palma; Location: [facility] SAME DAY SURGERY MAIN OR OTHER [...] (order for outpatient) Please SecureChat or Call ([phone]) for any questions. Await attending attestation for final recommendations. Hank Noel MD Division of Gastroenterology, Hepatology, and Nutrition Clinical Fellow, PGY-5 Pager: [phone] For urgent/stat calls or consults 5pm to 7am, please page the on-call GI fellow on [employer]. [facility]--> Internal Medicine--> Gastroenterology, Hepatology, & Nutrition--> 1st Call Fel Alysia For urgent/stat calls or consults 7am to 5pm during the weekend, please page the on-call GI fellow on [employer]. [facility]--> Internal Medicine--> Gastroenterology, Hepatology, & Nutrition--> All Hep & East Wknd Cons Day For follow up questions regarding this patient 7am to 5pm during the weekday, contact the Hepatology consults fellow or CARLOS A on [employer]. [facility]--> Internal Medicine--> Gastroenterology, Hepatology, & [...] for outpatient) Michael Estrada MD, MSc [facility] Work Phone: 01-16-2024 Plan of care note Internal Medicine Daily Progress Note Patient: George Styles, 1970, [id number] Physician: Arelis Mera MD, PGY3, Pager #[phone], TM1 service Assessment/Plan: George Styles is a [...] home amlodipine 5mg CAD: non-obstructive CAD on [facility] [...] MD, on rounds. Signed, Arelis Mera MD [facility] 01-16-2024 Nurse Note Mr. Styles was admitted to [address] [place] [address]. On admission to [facility], from outside facility a dual RN initial assessment of skin condition was performed by Izzy Gutierrez RN and Leroy Singleton RN. Skin Assessment: Skin within defined limits:Yes Jose Score: 20 Wound Vision Fisher Hand Line images obtained: No LDA Added: No Based [...] to nurses station when available. [facility] 01-16-2024 History and physical note Images from the original note were not included. Internal Medicine Admission History & Physical Patient: George Styles, 1970, [id number] Physician: Timothy Joseph MD, PGY1, Pager #[phone], TM 1 service Date of face to [...] 04/12/2020 Laterality: N/A; Surgeon: LU Palma; Location: [facility] SAME DAY SURGERY MAIN OR KIDNEY TRANSPLANT W/O LAC DU FL[place]AU NEPHRECTOMY N/A 04/12/2020 Laterality: N/A; Surgeon: LU Palma; Location: [facility] SAME DAY SURGERY MAIN OR OTHER [...] itraconazole Fax results to: Dr. White - [phone] Transplant Neph - [phone] Gabapentin 400 MG capsule Sig: Take 1 [...] erythema: Skin: No jaundice or rash Neuro: food counter attendant 3-7, 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 Strength grossly [...] home amlodipine 5mg CAD: non-obstructive CAD on [facility] [...] prophylaxis with lovenox Disposition: admitted to [facility] Code status is Full Staffed with [...] Pierson, Luisa Steven, Renee Rivera, Daisha Max Musical Performer: José Miguel Garnica All Txt: 04/13/2020 (Kidney), [...] results found for: CYCLOSPORIN , CYCLOSPORIN2 , [id number] , CYCLORAND No results found for: SIROLIMUS [...] request in chart. Kevin Prince MD Pager [phone] [facility] 01-16-2024 History and physical note Images from the original note were not included. Internal Medicine Admission History & Physical Patient: George Styles, 1970, [id number] Physician: Timothy Joseph MD, PGY1, Pager #[phone], TM 1 service Date of face to [...] GUIDANCE 05/17/2022 Surgeon: Enzo Heart DO; Location: [facility] INTERVENTIONAL RADIOLOGY (VIR) LIVER TRANSPLANT, ORTHOTOPIC N/A 04/12/2020 Laterality: N/A; Surgeon: LU Palma; Location: [facility] SAME DAY SURGERY MAIN OR KIDNEY TRANSPLANT W/O LAC DU [place] NEPHRECTOMY N/A 04/12/2020 Laterality: N/A; Surgeon: LU Palma; Location: [facility] SAME DAY SURGERY MAIN OR OTHER [...] itraconazole Fax results to: Dr. White - [phone] Transplant Neph - [phone] Gabapentin 400 MG capsule Sig: Take 1 [...] erythema: Skin: No jaundice or rash Neuro: food counter attendant 3-7, 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 Strength grossly [...] home amlodipine 5mg CAD: non-obstructive CAD on [facility] [...] prophylaxis with lovenox Disposition: admitted to [facility] Code status is Full Staffed with [...] Pierson, Luisa Steven, Renee Rivera, Daisha Max Musical Performer: José Miguel Garnica All Txt: 04/13/2020 (Kidney), [...] results found for: CYCLOSPORIN , CYCLOSPORIN2 , [id number] , CYCLORAND No results found for: SIROLIMUS [...] request in chart. Kevin Prince MD Pager [phone] documented in this encounter [facility] 01-12-2024 History of Present illness [...] Name: Prograf 0.2 MG Contact Info: Specialty ([place]) [phone] [facility] [place] [phone] [facility] [phone] David [phone] Bedside Delivery ([facility]) [phone] [facility] RX OUTREACH ADVANCED: Call Information: Date and Time of Contact: 01/25/2024 10:23 AM Method of Contact: By Phone Contact Type: Prescriptions Contactor: [facility] Contactee: Patient Contact Outcome: Left message (prograf myco) Contact Info: Specialty (Yanci) [phone] [facility] [place] [phone] [facility] [phone] David [phone] Bedside Delivery ([facility]) [phone] documented in this encounter [facility] 01-12-2024 History of Present illness [...] Prograf 0.2 MG Contact Info: Specialty (Yanci) [phone] [facility] [place] [phone] [facility] [phone] David [phone] Bedside Delivery ([facility]) [phone] [facility] RX OUTREACH ADVANCED: Call Information: Date and Time of Contact: 01/25/2024 10:23 AM Method of Contact: By Phone Contact Type: Prescriptions Contactor: [facility] Contactee: Patient Contact Outcome: Left message (prograf myco) Contact Info: Specialty ([place]anci) [phone] [facility] [place] [phone] [facility] [phone] David [phone] Bedside Delivery ([facility]) [phone] [facility] RX OUTREACH ADVANCED: Call Information: Date and Time of Contact: 01/27/2024 10:19 AM Method of Contact: By Phone Contact Type: Prescriptions Contactor: [facility] Contactee: Patient Contact Outcome: Left message (myco prograf) Contact Info: Specialty (Yanci) [phone] [facility] [place] [phone] [facility] [phone] David [phone] Bedside Delivery ([facility]) [phone] documented in this encounter [facility] 01-12-2024 History of Present illness [...] Name: Prograf 0.2 MG Contact Info: Specialty ([place]) [phone] [facility] [place] [phone] [facility] [phone] David [phone] Bedside Delivery ([facility]) [phone] [facility] RX OUTREACH ADVANCED: Call Information: Date and Time of Contact: 01/25/2024 10:23 AM Method of Contact: By Phone Contact Type: Prescriptions Contactor: [facility] Contactee: Patient Contact Outcome: Left message (prograf myco) Contact Info: Specialty ([place]) [phone] [facility] [place] [phone] [facility] [phone] [facility] [phone] Bedside Delivery ([facility]) [phone] [facility] RX OUTREACH ADVANCED: Call Information: Date and Time of Contact: 01/27/2024 10:19 AM Method of Contact: By Phone Contact Type: Prescriptions Contactor: [facility] Contactee: Patient Contact Outcome: Left message (myco prograf) Contact Info: Specialty (Yanci) [phone] [facility] [place] [phone] [facility] [phone] [facility] [phone] Bedside Delivery ([facility]) [phone] [facility] RX OUTREACH ADVANCED: Call Information: Date and Time of Contact: 02/01/2024 3:22 PM Contact Type: Prescriptions Contactor: [facility] Contactee: Patient Contact Outcome: Left message Shipping/Pickup: Medication Name: Mycophenolate 360mg and Prograf 0.2mg Pack Contact Info: Specialty (Yanci) [phone] Jakob [phone] [facility] [phone] David [phone] Bedside Delivery ([facility]) [phone] documented in this encounter [facility] 01-06-2024 History of Present illness [...] The neurologist wanted to send him to [facility] neurology but it is out of [...] pt to see neurologist in [facility] Immunocompromised ([facility]) Hypertension ([facility]) No change in meds Check echo Relevant Orders Echocardiogram 2D complete Bilateral lower extremity edema Relevant Orders Echocardiogram 2D complete Shortness of breath Check ECHO Relevant Orders Echocardiogram 2D complete Other Visit Diagnoses 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) Atherosclerosis 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) documented in this encounter [facility] 10-06-2023 History of Present [...] ; Prograf 0.2 MG Contact Info: Specialty ([place]) [phone] [facility] [place] [phone] [facility] [phone] [facility] [phone] Bedside Delivery ([facility]) [phone] [facility] RX OUTREACH ADVANCED: Call Information: Date and Time of Contact: 10/23/2023 2:00 PM Method of Contact: By Phone Contact Type: Prescriptions Contactor: [facility] Contactee: Patient Contact Outcome: Left message and Call back later Shipping/Pickup: Medication Name: Mycophenolate 360mg and Prograf 0.2mg Contact Info: Specialty (Yanci) [phone] [facility] [place] [phone] [facility] [phone] [facility] [phone] Bedside Delivery ([facility]) [phone] documented in this encounter [facility] 09-11-2023 Miscellaneous Notes Pt discharged [...] the oxygen during the night. pt will bead picker his oxygen from [employer] [facility], 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 This RN [...] Patient seen ambulating in the velazquez with LANDSCAPE PHOTOGRAPHER. Patient was mildly short of breath on [...] & HR 114. Messaged Mainor Loomis, via [employer] secure chat, Temp 100.8. His tylenol order [...] short period of time. 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 Episode [...] Critical Care Medicine Message Mainor Loomis, via [employer] secure chat, Good evening, just an FYI, [...] short period of time. 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 This [...] [address] Loera here also (blast setter) Dr. Diaz aware of pt's increased oxygen [...] regular sleep/rest pattern promoted Sent a secure People to RememberIS chat to Rosi LUZ concerning patient's temp [...] Medicine-Pediatrics, PGY-2 Mr. Styles was admitted to [address] [place] [address]. On admission to [facility], from home a [...] station when available. documented in this [facility] History of Present illness Narrative Provided follow-up emotional and spiritual support. Patient shared about rosemary of discharge and looking forward to seeing family Application Security Developer provided: - Supportive presence - Active listening - Validation of feelings/emotions Patient encouraged to request a chain sales representative as needed. Chaplains are available in-house 24 hours a day and 7 days a week. For urgent matters in [facility], please page [phone]. If the request is not urgent, please enter a consult. Consults are responded to within 24 hours. Senior Staff Application Security Developer Angie Singh Mdiv, [facility] Kirk [phone] [email or web address] 22/06 On-call [place]: [phone] 22/06 Pager ,BS, and Brock Toledor [phone] 09/11/23 1430 Clinical Encounter Type Visited With Patient Visit Type Follow-up Pastoral Time Spent 15 min Referral Other (See Comment) (rounding) Spiritual Assessment Spiritual Observation Spirituality helpful Emotional Observation Coping well Hope Observation Specific hope focus Support Observation By Family Interventions Provided Active listening;Supportive presence Facilitated Verbalization of feelings Explored Expectations X Ray Developer Education X Ray Developer Service Available Yes Educated Patient Plan of Care Continue Visiting PRN Images from the original note were not included. [facility] ([facility] Note: Non-Verbal Med Rec [facility] received the following discharge prescription(s): Total cost is $0. I have reviewed the Discharge Rx Reconciliation Report. The discharge prescription(s) will be delivered to the patient on 09/11/2023. Dimitrios Gurrola RPh,PharmD Specialty ([place]) [phone] [facility] [place] [phone] [facility] [place] Bedside Delivery [phone] [facility] [phone] [facility] Bedside Delivery [phone] David [phone] David Bedside Delivery [phone] [place] [phone] [place] [phone] Internal Medicine Daily Progress Note Patient: George Styles, 1970, [id number] Physician: Evan Kelly MD, PGY-1, TM1 service Subjective/Interval History: Patient continues to require oxygen overnight for desaturations. With insurance limitations, only accepting agency to provide home oxygen backed out. After calling them to discuss, Lynn stated she would be willing to have patient drive to their facility to bead picker supplies, however they close at 5pm. 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 His [place]bi[place]sha shoshone kidney disease was noted to be presumed [...] 5.05 (H) 11/19/2018 Kevin Prince MD, SERA Manager Performance of Clinical Medicine [facility] Images from the original note were not included. Final Discharge Planning and Transportation Final Discharge Planning Discharge Disposition: Home Services at Discharge: Outpatient clinical services (ie: lab draws, transfusions, injectables) (Home Oxygen by [employer]) Selected Continued Care - Admitted Since 08/28/2023 Durable Medical Equipment Coordination complete. Service Provider Selected Services Address Phone Fax Patient Preferred [facility] Durable Medical Equipment [facility] [address] Internal Comment last updated by Lora Lawrence RN 09/10/2023 1334 Correct contact information: [employer] [address] [place] [address] [address] [place] [address] data analysis assistant- you do not need to call at discharge, I already notified the company. [facility]um [phone] they are out of patient's insurance area and will not be able to service this patient at time of discharge. Provider notified. Addendum [phone] Dr Kelly called Randi spoke to Lynn and she said they are willing to accept patient if the patient would drive to the [employer] office and bead picker the supplies. Patient is willing to [...] Lora Colón RN, MSN, CCM, CMCN Clinical Home Appliance Installer- [facility] Transplant #[phone] Department of Pharmacy Transplant Note Patient: George [...] adjustment Name: Matt Kramer RPh, PharmD Phone: [phone] Date/Time: 09/10/2023 11:33 AM This CM sent referral via [employer] for O2 concentrator to 4 agencies Start date today Timer set for 1330 [employer] [facility] [employer] Addendum 1332 One accepting company reserved in Net [address] [place] [address] [place] [address] Lora Colón RN, MSN, CCM, CMCN Clinical Home Appliance Installer- [facility] Transplant #[phone] NUTRITION FOLLOW-UP Nutrition Plan of Care: 1. Continue current diet order. 2. No oral supplements warranted at this time. 3. Monitor for significant weight changes. Monitor GI, skin integrity. 4. Monitor and encourage po intakes with goal of average po being 75-100%. 5. cath lab radiology technician to follow. ___ Met with patient today at bedside wearing mask. Current Diet Orders Procedures DIET REGULAR Standing Status: Standing Number of Occurrences: 1 Appetite: good Per doc flow sheet: Date Breakfast Lunch Dinner /10 -% 75% -% 10/9 100% 75% 100% 10/8 100% 100% 100% 10/ 100% 100% -% [...] time. Will continue to monitor. RHIANNON BirminghamR Pager:[phone] Transplant Infectious Disease (Team 3) Progress Note [...] sign off. Please Epic message or page [phone] with questions. 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 His timbi-sha shoshone kidney disease was noted to be presumed [...] to follow. Please Epic message or page [phone] with questions. 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 His timbi-sha shoshone kidney disease was noted to be presumed [...] 5.05 (H) 11/19/2018 Kevin Prince MD, SERA Manager Performance of Clinical Medicine [facility] Transplant [...] to follow. Please Epic message or page [phone] with questions. Ann Marie Haskins MD PGY-4, [...] he continues to improve. Please message via Pharmaxis secure chat or page with any questions or concerns. Evan White DO Manager Performance Division of Infectious Disease Transplant Infectious Disease [...] to follow. Please Epic message or page [phone] with questions. Evan White DO Transplant Infectious Diseases Images from the original note were not included. Pulmonary/Critical Care Medicine Daily Progress Note Reason for Consultation: bronch for infectious workup Requesting Physician: Dr. Prince CURRENT HOSPITALIZATION: Admit Date: 08/28/2023 [facility] Hospital LOS: 9 days Impression [...] and interpreted reviewed the radiographic data in [employer]/careeverywhere. 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 His timbi-sha shoshone kidney disease was noted to be presumed [...] 5.05 (H) 11/19/2018 Kevin Prince MD, MADISONN Manager Performance of Clinical Medicine [facility] Images from the original note were not included. Pulmonary/Critical Care Medicine Daily Progress Note Reason for Consultation: bronch for infectious workup Requesting Physician: Dr. Prince CURRENT HOSPITALIZATION: Admit Date: 08/28/2023 [facility] Hospital LOS: 8 days Impression [...] and interpreted reviewed the radiographic data in [employer]. Acute Occupational Therapy Evaluation Prior to Admission [...] Assessment: Transfer Assessment: Sit to Stand Transfer [place] Level: Sit->Stand: independent Skilled Intervention/Details: Sit->Stand: x1 from EOB, x1 from toilet Stand to Sit Transfer [place] Level: Stand->Sit: independent Skilled Intervention/Details: Stand->Sit: x1 to toilet, x1 to EOB Functional Mobility: Functional Mobility [place] Level: Functional Mobility/Gait: independent Ambulation Distance (Feet): 20 Skilled Intervention/Details - Functional Mobility/Gait: pt performed functional mobility to/from RR w/ no overt LOB Outcome Score(s): CURRENT [facility] Daily Activity Inpatient Short Form Putting on/Taking Off Lower Body Clothin - A Little Assistance Bathin - A Little Assistance Toiletin - A Little Assistance Putting on/Taking Off Upper Body Clothin - No Assistance Groomin - No Assistance Eatin - No Assistance CURRENT [facility] Activity Raw Score: 21 CURRENT [facility] Activity Functional Limitation/Modifier: 32.79% Currently Impaired [...] Intact Mobility Assessment: Supine to Sit Mobility [place] Level: Supine->Sit: modified [place] Bed Features/Set-up: Supine->Sit: Head of bed elevated Sit to Supine Mobility [place] Level: Sit->Supine: not tested Balance: Sitting Balance [...] environment. Transfer Assessment: Sit to Stand Transfer [place] Level: Sit->Stand: independent Skilled Intervention/Details: Sit->Stand: From EOB x 2 without difficulty. Stand to Sit Transfer [place] Level: Stand->Sit: independent Assistive Device: Stand->Sit: armed chair Skilled Rationale: Verbal cues, Positioning Gait/Functional Mobility: Gait Assessment Yuba Level: Gait: stand-by assist Assistive Device: Gait: rollator Ambulation Distance (Feet): 400 Gait Deviations Identified: decreased grace, decreased gait speed Gait Skilled Rationale: verbal, upright posture, increase step length, increase foot clearance Skilled Intervention/Details - Gait: Reasonable foot clearnce without loss of balance but endorsing dyspnea as 6-7/10. Stairs: Stairs Assessment [place]uba Level: Stair Negotiation: not tested Outcome Score(s): CURRENT [facility] Basic Mobility Inpatient Short Form Turning over in bed: 4 - No Assistance Sitting/standing from chair: 4 - No Assistance Moving from lying on back to sittin - No Assistance Moving to and from bed to chair: 3 - A Little Assistance Walk in hospital room: 3 - A Little Assistance Climbing 3-5 steps with a railin - A Little Assistance CURRENT [facility] Mobility Raw Score: 21 CURRENT [facility] Mobility Functional Limitation/Modifier: 28.97% Currently Impaired [...] Daily Progress Note Patient: George Styles, 1970, [id number] Physician: Evan Kelly MD, PGY-1, TM1 service [...] 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 His timbi-sha shoshone kidney disease was noted to be presumed [...] 5.05 (H) 11/19/2018 Kevin Prince MD, MADISONN Manager Performance of Clinical Medicine [facility] Transplant [...] to follow. Please Epic message or page [phone] with questions. Evan White DO Transplant Infectious Diseases Images from the original note were not included. 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 His timbi-sha shoshone kidney disease was noted to be presumed [...] P 450 system Kevin Prince MD, SERA Manager Performance of Clinical Medicine [facility] ERT Note: [...] to follow. Please Epic message or page [phone] with questions. Evan White DO Transplant Infectious Diseases Internal Medicine Daily Progress Note Patient: George Styles, 1970, [id number] Physician: Evan Kelly MD, PGY-1, TM1 service [...] questions answered by the team. 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 His timbi-sha shoshone kidney disease was noted to be presumed [...] 5.05 (H) 11/19/2018 Kevin Prince MD, FASN Manager Performance of Clinical Medicine [facility] Progression [...] Lora Colón RN, MSN, CCM, CMCN Clinical Home Appliance Installer- [facility] Transplant #[phone] Made introductory visit with patient. Provided emotional and spiritual support. Patient shared about: - Source of Rosemary: Camping/Fishing/Family - Spirituality/Taoist Affiliation: raised Jainism - Family Support/history - Experience with illness/hospital course - Hopes for healing/future Application Security Developer provided: - Supportive presence - Active listening - Validation of feelings/emotions - Pledged prayer Patient encouraged to request a chain sales representative as needed. Chaplains are available in-house 24 hours a day and 7 days a week. For urgent matters in [facility], please page [phone]. If the request is not urgent, please enter a consult. Consults are responded to within 24 hours. Senior Staff Application Security Developerwilmer Singh Mdiv, [facility] Kirk [phone] [email or web address] 22/06 On-call [place]: [phone] 22/06 Pager ,BS, and Brock Hernandez Pager [phone] 09/02/23 1116 Clinical Encounter Type Visited With Patient Visit Type Introduction Pastoral Time Spent 15 min Referral Other (See Comment) (rounding) Spiritual Assessment Spiritual Observation Spirituality helpful Emotional Observation Coping well Hope Observation Specific hope focus Support Observation By Family Interventions Provided Active listening;Supportive presence Facilitated Verbalization of feelings Explored Expectations X Ray Developer Education X Ray Developer Service Available Yes Educated Patient Outcomes Patient Outcomes Reduced distress Plan of Care Continue Visiting PRN NUTRITION RISK SCREENING NOTE Nutrition Plan of Care: 1. Continue current diet order. 2. No oral supplements warranted at this time. 3. Monitor for significant weight changes. Monitor GI and skin integrity. 4. Monitor and encourage po intakes with goal of average po being 100%. 5. cath lab radiology technician to follow. George Styles is a 53 y.o. 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 His timbi-sha shoshone kidney disease was noted to be presumed hepatorenal syndrome. His post-transplant course was noteworthy for nephrostomy tube (05/17/2022-09/10/2022) due to concern for ureteral stone. He presents as a direct admission for fever, cough, for infectious workup. Pt unavailable and information obtained via chart review Folded Cloth Taper Screening Pt's appetite is good. Pt with [...] with meds Food Allergies reviewed:Shellfish Cultural or Taoist Restrictions/Preferences: None GI: Last Bowel Movement: 09/01/23 [...] Will continue to monitor. Cecilia Mattson DTR Pager:[phone] Internal Medicine Daily Progress Note Patient: George Styles, 1970, [id number] Physician: Evan Kelly MD, PGY-1, TM1 service [...] s/p combined Liver-kidney transplant on 04/13/20. His timbi-sha shoshone kidney disease was noted to be presumed [...] as outlined above. Kevin Prince MD Pager [phone] Summary: Pharmacy Med Rec Department of Pharmacy [...] contact me with any further questions. Name: Hiedy Chatman Phone #: [phone] Date/Time: 09/01/2023 2:01 PM Time Spent: 15 minutes Associated attestation - Matt Kramer RPh,Frankie - 09/01/2023 2:28 PM EDT Department of Pharmacy Admission Medication Reconciliation Note Patient: George Styles Room/Bed: 1062/A I have reviewed the home medication list with the Jamb Cutter. All changes to the home medication list have been updated in [facility]. Updated FURNACE FITTER Med List: Prior to Admission Medications Prescriptions [...] Name: Matt Kramer RPh, PharmD Phone #: [phone] Date/Time: 09/01/2023 2:28 PM Transplant Infectious Disease [...] crypto antigen, EBV PCR -follow pending histo, [id number] labs These recommendations were discussed with the primary team. Transplant ID (Team 3) will continue to follow. Please Epic message or page [phone] with questions. Evan White DO Transplant Infectious Diseases Internal Medicine Daily Progress Note Patient: George Styles, 1970, [id number] Physician: Evan Kelly MD, PGY-1, TM1 service [...] C) SpO2: 91% O2 Device: nasal cannula (08/31/23 0917) Flow (L/min): 4 (10/02/23 0917) Gen: Alert, Awake, NAD, tired-appearing Eyes: EOMI, [...] s/p combined Liver-kidney transplant on 04/13/20. His timbi-sha shoshone kidney disease was noted to be presumed [...] home amlodipine 5mg, holding losartan 50mg BID 2/ renal function CAD: non-obstructive CAD on [facility] [...] 5.05 (H) 11/19/2018 Kevin Prince MD, SERA Manager Performance of Clinical Medicine [facility] Discharge [...] Yes Name and Contact information: Gian Jensen ([phone]) Reviewed and Updated in Demographics? : Yes Outpatient Providers Does patient have a primary care physician? : Yes When was the patient's last PCP visit?: > 30 days Does the patient follow any specialists?: No Reviewed and updated Care Team?: Yes Patient Care Team: Zuly Bruno CNP as PCP - General Environment/Caregivers Is the patient from a facility or [place] health care facility?: No Patient lives with: Alone Living Environment: [...] patient on Anticoagulation? : No [id number] [place] [address] - [address] [place] [id number] Heater Helper Does the patient or indirect sales representative express financial concerns? : No Employed?: Disabled Coping/Stress Concerns about patient s coping and stress?: No Concerns about patient s caregiver s coping and stress?: No Values and Beliefs Cultural or mormon practices that may impact discharge planning and/or [...] Plan 1. Identified self and role as Home Appliance Installer. 2. Confirmed and updated demographics and treatment team. 3. Home Appliance Installer will continue to follow with medical team/pt for any other additional discharge needs. Kasandra DON RN CM *Please note I am float and work Thursday and Thursday every other week. Please call [phone] for assist in my absence. Internal Medicine Daily Progress Note Patient: George Styles, 1970, [id number] Physician: Evan Kelly MD, PGY-1, TM1 service [...] s/p combined Liver-kidney transplant on 04/13/20. His timbi-sha shoshone kidney disease was noted to be presumed [...] 5.05 (H) 11/19/2018 Kevin Prince MD, SERA Manager Performance of Clinical Medicine [facility] Internal Medicine Daily Progress Note Patient: George Styles, 1970, [id number] Physician: Laurel Serrano MD, PhD, PGY-3, TM1 [...] s/p combined Liver-kidney transplant on 04/13/20. His timbi-sha shoshone kidney disease was noted to be presumed [...] MD, PhD documented in this encounter [facility] 09-10-2023 Hospital Discharge instructions Laurel Serrano [...] a sleep doctor. You will need to bead picker the oxygen concentrator when you leave [...] on healthy foods. documented in this [facility] Consult note Associated Order (s): IP CONSULT TO PULMONOLOGY Pulmonary Medicine Inpatient Consultation Reason for Consultation: bronch for infectious workup Requesting Physician: Dr. Prince Pulmonary Attending Physician: Dr. Diaz CURRENT HOSPITALIZATION: Admit Date: 08/28/2023 [facility] Hospital LOS: 4 days Impression/Recommendations: George Stylse is a 53 y.o. male with a [...] short period of time. 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 Other histories as documented in [...] contacts. He traveled to [place] to family reunion in May. REVIEW OF [...] GUIDANCE 05/17/2022 Surgeon: Enzo Heart DO; Location: [facility] INTERVENTIONAL RADIOLOGY (VIR) LIVER TRANSPLANT, ORTHOTOPIC N/A 04/12/2020 Laterality: N/A; Surgeon: LU Palma; Location: [facility] SAME DAY SURGERY MAIN OR KIDNEY TRANSPLANT W/O LAC [place] FL[place] NEPHRECTOMY N/A 04/12/2020 Laterality: N/A; Surgeon: LU Palma; Location: [facility] SAME DAY SURGERY MAIN OR OTHER [...] Alamo MD I can be reached via Pharmaxis secure message (preferred) or Pager #[phone] documented in this encounter [facility] 08-28-2023 History and physical note Images from the original note were not included. Internal Medicine Admission History & Physical Patient: George Styles, 1970, [id number] Physician: Aric Turner MD, PGY1, Pager #[phone], TM service Date of face to face [...] So he went to see the transplant tuyere fitter. He was found elevated Cr and asked [...] Appetite is ok now. Urine is about 3040-1363 ml every day. Stool every day, no [...] GUIDANCE 05/17/2022 Surgeon: Enzo Heart DO; Location: [facility] INTERVENTIONAL RADIOLOGY (VIR) LIVER TRANSPLANT, ORTHOTOPIC N/A 04/12/2020 Laterality: N/A; Surgeon: LU Palma; Location: [facility] SAME DAY SURGERY MAIN OR KIDNEY TRANSPLANT W/O LAC [place] NEPHRECTOMY N/A 04/12/2020 Laterality: N/A; Surgeon: LU Palma; Location: [facility] SAME DAY SURGERY MAIN OR OTHER [...] s/p combined Liver-kidney transplant on 04/13/20. His timbi-sha shoshone kidney disease was noted to be presumed [...] Urinary histoplasmosis - PJP, candid PCR - Cook House Laborer transplant ID Acute Kidney Injury with Kidney [...] Pierson, Luisa Steven, Renee Rivera, Daisha Max Musical Performer: José Miguel Garnica All Txt: 04/13/2020 (Kidney), [...] results found for: CYCLOSPORIN , CYCLOSPORIN2 , [id number] , CYCLORAND No results found for: SIROLIMUS [...] Rest as above. Kevin Prince MD Pager [phone] documented in this encounter [facility] 08-28-2023 History of Present illness Narrative Images from the original note were not included. 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 Musical Performer: Anayeli Burt Date of Liver Transplant: 04/13/2020 (Kidney), 04/13/2020 (Liver) 3 years 4 months post Liver/Kidney Transplant Primary Disease: Hypertensive Nephrosclerosis Transplant Associate Dean Of Women: Erma Roe/ Daisha Max Primary Care physician: [...] [id number] [place] [address] - [address] [facility] [facility] [address] [facility] [address] [facility] [facility] [address] [id number] [place] [address] [address] [facility] [address] [facility] [address] [facility] [address], [place] [address] [facility] [address] ROS and SCREEN: Chest Pain: negative Cough: [...] PHYSICIAN: I saw George Styles at the [facility] on 08/28/2023. Patient is a 53 y.o. 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 His [place]-sha shosh[place] kidney disease was noted to be presumed [...] 04/12/2020 Laterality: N/A; Surgeon: JOSH PalmaBS; Location: [facility] SAME DAY SURGERY MAIN OR KIDNEY TRANSPLANT W/O LAC [place] NEPHRECTOMY N/A 04/12/2020 Laterality: N/A; Surgeon: LU Palma; Location: [facility] SAME DAY SURGERY MAIN OR OTHER [...] you have any questions. Steve Munoz MD marine engine mechanic Division of Nephrology [facility] documented in this encounter [facility] 08-28-2023 Instructions Mainor Busby RN - 08/28/2023 2:15 PM EDT - Admission for fevers, cough, and night sweats documented in this encounter [facility] 08-19-2023 History of Present illness Narrative [facility]RE[facility] ADVANCED: Call Information: Date and Time of Contact: 08/19/2023 2:52 PM Method of Contact: By Phone Contact Type: Prescriptions Contactor: [facility] Contactee: Patient Shipping/Pickup: Medicare B Refill?: No Medication Name: Tacro 0.5mg Delivery Method: Air Delivery Location: Home Signature Required: No Mailing/Pickup Date: 08/25/2023 Shipping Address: [address] [place] [address] Contact Info: Specialty ([place]) [phone] Jakob [phone] [facility] [phone] David [phone] Bedside Delivery ([facility]) [phone] documented in this encounter [facility] 06-12-2023 History of Present illness Narrative Images from the original note were not included. George Styles is a 53 y.o. 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 No longer follows with a local tuyere fitter. History of Present Illness: Since George was [...] and lab results. Rebeca Gutierrez MSN, RN, SCREEDMAN-BC, CCTN Certified Nurse Practitioner [facility] [address] [facility] [address] documented in this encounter [facility] 06-12-2023 Instructions JEANNA Hess - 06/12/2023 3:00 PM EDT No change in immunosuppression. documented in this encounter [facility] 06-10-2023 History of Present illness Narrative [facility]RE[facility]: Call Information: Method of Contact: By Phone Contact Type: Prescriptions Contactor: [facility] Contactee: Patient Contact Outcome: Left message Shipping/Pickup: Medication Name: Mycophenolate sod 180 mg Contact Info: Specialty ([place]) [phone] [facility] [place] [phone] [facility] [phone] David [phone] Bedside Delivery ([facility]) [phone] [facility]REACH ADVANCED: Call Information: Date and Time of Contact: 06/12/2023 9:43 AM Method of Contact: By Phone Contact Type: Prescriptions Contactor: [facility] Contactee: Patient Contact Outcome: Left message and Follow-up Shipping/Pickup: Medicare B Refill?: No Medication Name: Myco 180 Contact Info: Specialty ([place]) [phone] [facility] [place] [phone] [facility] [phone] David [phone] Bedside Delivery ([facility]) [phone] [facility] OUTREACH ADVANCED: Call Information: Date and Time of Contact: 06/12/2023 10:08 AM Method of Contact: By Phone Contact Type: Prescriptions Contactor: [facility] Contactee: Patient Shipping/Pickup: Medicare B Refill?: No Medication Name: Mycophenolate 180mg DR Delivery Method: Air Delivery Location: Home Signature Required: No Mailing/Pickup Date: 06/17/2023 Shipping Address: [address] [address] Contact Info: Specialty ([place]) [phone] Jakob [phone] [facility] [phone] David [phone] Bedside Delivery ([facility]) [phone] documented in this encounter [facility] 03-12-2023 History of Present illness Narrative [facility]REACH ADVANCED: Call Information: Date and Time of Contact: 03/12/2023 10:34 AM Method of Contact: By Phone Contact Type: Prescriptions Contactor: [facility] Contactee: Patient Shipping/Pickup: Medicare B Refill?: No Medication Name: Mycophenoloate sod 360 mg prednisone 5mg Delivery Method: Air Delivery Location: Home Signature Required: No Mailing/Pickup Date: 03/16/2023 Shipping Address: [address] [place] [address] Contact Info: Specialty ([place]) [phone] [facility] [place] [phone] [facility] [phone] David [phone] Bedside Delivery ([facility]) [phone] [facility]REACH ADVANCED: Call Information: [...] No Mailing/Pickup Date: 03/19/2023 Shipping Address: [address] Contact Info: Specialty ([place]) [phone] [facility] [place] [phone] [facility] [phone] David [phone] Bedside Delivery ([facility]) [phone] documented in this encounter [facility] 03-10-2023 History of Present illness Narrative [facility] OUTREACH ADVANCED: Call Information: Date and Time of Contact: 03/10/2023 12:00 PM Method of Contact: By Phone Contact Type: Prescriptions Contactor: [facility] Contactee: Patient Contact Outcome: Left message and Call back later Shipping/Pickup: Medication Name: Mycophenolate ; Tacrolimus Contact Info: Specialty ([place]) [phone] [facility] [place] [phone] [facility] [phone] David [phone] Bedside Delivery ([facility]) [phone] documented in this encounter [facility] 03-10-2023 History of Present illness Narrative [facility] OUTREACH ADVANCED: Call Information: Date and Time of Contact: 03/10/2023 12:00 PM Method of Contact: By Phone Contact Type: Prescriptions Contactor: [facility] Contactee: Patient Contact Outcome: Left message and Call back later Shipping/Pickup: Medication Name: Mycophenolate ; Tacrolimus Contact Info: Specialty ([place]) [phone] [facility] [place] [phone] [facility] [phone] David [phone] Bedside Delivery ([facility]) [phone] [facility] OUTREACH ADVANCED: Call Information: Date and Time of Contact: 03/12/2023 10:32 AM Method of Contact: By Phone Contact Type: Prescriptions Contactor: [facility] Contactee: Patient Contact Outcome: Left message Shipping/Pickup: Medication Name: Mycophenolate sodium (MYFORTIC) 180 MG Tab tacrolimus 0.5 mg Contact Info: Specialty ([place]) [phone] [facility] [place] [phone] [facility] [phone] David [phone] Bedside Delivery ([facility]) [phone] documented in this encounter [facility] 01-16-2023 History of Present illness Narrative -Referring Provider for today's consult: Daisha Max DO -Primary Care Provider: Zuly Bruno History of Present Illness George Styles is a 52 y.o. male who presents to the [facility] Transplant Hepatology Clinic today [...] GUIDANCE 05/17/2022 Surgeon: Enzo Heart DO; Location: [facility] INTERVENTIONAL RADIOLOGY (VIR) LIVER TRANSPLANT, ORTHOTOPIC N/A 04/12/2020 Laterality: N/A; Surgeon: LU Palma; Location: [facility] SAME DAY SURGERY MAIN OR KIDNEY TRANSPLANT W/O LAC DU FL[place]BEAU NEPHRECTOMY N/A 04/12/2020 Laterality: N/A; Surgeon: LU Palma; Location: [facility] SAME DAY SURGERY MAIN OR OTHER [...] 0.3 12/29/2022 Explant Pathology Pathologic Diagnosis A. [place] liver, orthotopic liver transplant resection (1458 [...] A/P with IV contrast (06/27/2022): 1. Both timbi-sha shoshone kidneys are atrophic with improvement in right-sided [...] frequent nighttime urination, etc). Daisha Max DO Manager Performance Gastroenterology, Hepatology and Nutrition [facility] Pager: [phone] Images from the original note were not included. 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 Musical Performer: Anayeli Burt Date of Liver Transplant: 04/13/2020 (Kidney), 04/13/2020 (Liver) 2 years, 8 months post Liver/Kidney Transplant Primary Disease: Hypertensive Nephrosclerosis Transplant Associate Dean Of Women: Steve Munoz Primary Care physician: Zuly Bruno [...] levels: No results found for: CYCLOSPORIN, CYCLOSPORIN2, [id number], CYCLORAND No components found for: CYCLOSPORINE, 2HR [...] hours. ADDITIONAL INFORMATION: None Specified [id number] [place] [address] - [address] [facility] [facility] [address] [facility] [address], [address] [facility] [address] [id number] [place] [address] [address] [facility] [address] [facility] [address] [facility] [address] [facility] [address], [address] [facility] [address] ROS and SCREEN: Chest Pain: negative Cough: [...] PHYSICIAN: documented in this encounter [facility] 01-16-2023 Instructions José Miguel Garnica RN - 01/16/2023 9:40 AM EST - Labs Every 2 months - Discuss night time urination with your PCP - Schedule Colonoscopy through PCP - Follow up in 1 year documented in this encounter [facility] 09-10-2022 History of Present illness [...] and no hydronephrosis. Some reflux up the timbi-sha shoshone right ureter but good drainage of both transplant and timbi-[place] shoshone ureter to the bladder. Nephrostomy tube was [...] transplant, orthotopic (N/A, 04/12/2020); kidney transplant w/o timbi-sha shoshone nephrectomy (N/A, 04/12/2020); and placement nephrostomy catheter [...] Negative for , diarrhea, constipation Genitourinary: See [place] Neurological: Negative for headaches. Lymph/Heme: Negative for [...] x 4, Normal strength. No edema. Skin: Margaret, warm, and dry. There are no rashes [...] and no hydronephrosis. Some reflux up the timbi-sha shosh[place] right ureter but good drainage of both transplant and timbi-[place] shoshone ureter to the bladder. Nephrostomy tube was [...] MD 09/10/22 documented in this encounter [facility] 07-07-2022 History of Present illness Narrative [...] off the table and escorted to reception agent where they made a follow up. Associated Order(s): NEPHROSTOMY TUBE REMOVAL Post-Procedure Diagnose(s): Other hydronephrosis NEPHROSTOMY TUBE REMOVAL Date/Time: 07/07/2022 2:10 PM Performed by: Ryan Ypeez MD Authorized by: Ryan Yepez MD Nephrostomy [...] to have transplant ureter with anastomosis to timbi-sha shoshone right ureter. Nephrostogram without filling defects and no hydronephrosis. Some reflux up the timbi-[place] shoshone right ureter but good drainage of both transplant and [place]bi-[place] shoshone ureter to the bladder. Nephrostomy tube was removed without issue. Patient does have some sensation of incomplete bladder emptying and occasional sensation in his right flank. PVR today was 33cc. Will re-evaluate urinary symptoms at next appointment. --continue Flomax --RTC in one month flow flow/PVR/IPSS Patient to call with any additional questions or concerns. Ryan Yepez MD 07/07/22 documented in this encounter [facility] 06-27-2022 History of Present illness Narrative [...] transplant, orthotopic (N/A, 04/12/2020); kidney transplant w/o timbi-sha shoshone nephrectomy (N/A, 04/12/2020); and placement nephrostomy catheter [...] Negative for , diarrhea, constipation Genitourinary: See [place] Neurological: Negative for headaches. Lymph/Heme: Negative for [...] x 4, Normal strength. No edema. Skin: Margaret, warm, and dry. There are no rashes [...] yo male with a DDRT to the [facility]. Nephrostomy tube placed [...] needed. documented in this encounter [facility] 06-27-2022 History and physical note Patient was evaluated in clinic as a nurse visit. Please refer to Rena Brewster's note. [facility] Work Phone: 06-27-2022 History and physical note Patient was evaluated in clinic as a nurse visit. Please refer to Rena Brewster's note. documented in this encounter [facility] 06-27-2022 History of Present illness Narrative TEACHING REGARDING TX NEPH COMPLETED-NEPH TUBE SITE DRY AND INTACT-CLEAR YELLOW URINE IN THE BAG-INSTRUCTED ABOUT FLUSHING, BAG CHANGING ETC. NUMEROUS QUESTIONS ASKED AND ANSWERED-VERBALIZED UNDERSTANDING documented in this encounter [facility] 06-18-2022 Note EXAMINATION: CT ABD/ [...] mass or enlargement. KIDNEYS: Marked atrophy of timbi-sha shoshone kidneys. Transplant right pelvic kidney with percutaneous [...] compared to prior study. Electronically authenticated by: MÓINCA JIMENEZ Date: 2022-06-18 13:53 [facility] 06-12-2022 Instructions Anayeli Christianson RN - 06/12/2022 3:21 PM EDT Do not take apart/disrupt nephrostomy tube system. Call Interventional Radiology and/or on-call transplant nurse [phone] for instruction if need to flush (clot or decreased flow). Take cipro 500mg, one tablet, twice per day for 14 days documented in this encounter [facility] 06-12-2022 History of Present illness Narrative Images from the original note were not included. 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 Musical Performer: Anayeli Burt Date of Liver Transplant: 04/13/2020 (Kidney), 04/13/2020 (Liver) 2 year, 1 months post Liver/Kidney Transplant Primary Disease: Hypertensive Nephrosclerosis Transplant Associate Dean Of Women: Steve Munoz Primary Care physician: Zuly Aichholz combined liver/kidney transplant from a Donation after [...] or medical transport for appointment: no Did medical front desk coordinator confirm current address and insurance information is [...] LAB AND PHARMACY: None Specified [facility] [place] [address] - [address] [facility] [address] [facility] [address] [facility] [address] , [address] [facility] [address] [id number] [place] [address] [address] [facility] [address] [facility] [address] [facility] [address] [facility] [id number] ROS and SCREEN: Chest Pain: negative Cough: negative SOB: negative Abd Pain: negative Nausea: positive Vomiting: negative Diarrhea: negative Constipation: negative Dysuria: positive Edema: negative Tremors: negative Headaches: negative Wound issues: negative Pt has neph tube w clear yellow urine. States he had a small clot that he dislodged QUESTIONS OR CONCERNS TO ADDRESS WITH PHYSICIAN: I saw George Styles at the [facility] on 06/12/2022. Patient is a 52 y.o. 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 His timbi-sha shoshone kidney disease was noted to be presumed [...] GUIDANCE 05/17/2022 Surgeon: Enzo Heart DO; Location: [facility] INTERVENTIONAL RADIOLOGY (VIR) LIVER TRANSPLANT, ORTHOTOPIC N/A 04/12/2020 Laterality: N/A; Surgeon: LU Palma; Location: [facility] SAME DAY SURGERY MAIN OR KIDNEY TRANSPLANT W/O LAC DU FLAMBEAU NEPHRECTOMY N/A 04/12/2020 Laterality: N/A; Surgeon: LU Palma; Location: [facility] SAME DAY SURGERY MAIN OR OTHER [...] you have any questions. Steve Munoz MD marine engine mechanic Division of Nephrology [facility] documented in this encounter [facility] 06-04-2022 Instructions TATI GROVE - 06/04/2022 11:04 AM EDT Thank you for joining us for your neph tube follow up. We recommend routine exchange every 8-10 weeks. Please reach out at [phone] when it is time to set your next routine exchange. Thank you IR clinic documented in this encounter [facility] 06-04-2022 History of Present illness [...] understanding. documented in this encounter [facility] 05-20-2022 Note Formatting of this [...] his discharge. Leon Cook RN [facility] 05-20-2022 Miscellaneous Notes Patient discharged. [...] discharge/transition of care. Outcome: Adequate for Discharge Tung Dillard MD R10 Rm 1006 Jenesn Orellana Please let's have a clear order on how the nephrostomy site dressing need to be changed when the patient goes home so we provide teaching before his discharge Leon RN #[id number] Leon Cook RN Afternoon assessment completed at [...] with questions. Evan Byrd MD Urology, PGY-2 #[id number] I certify that this patient requires inpatient [...] RN documented in this encounter [facility] 05-20-2022 Note Formatting of this [...] care. Outcome: Adequate for Discharge [facility] 05-20-2022 Note Formatting of this n ote might be different from the original. Tung Dillard MD R10 Rm 1006 Jensen George Please let's have a clear order on how the nephrostomy site dressing need to be changed when the patient goes home so we provide teaching before his discharge Leon GALLARDO #[id number] Leon Cook RN [facility] 05-20-2022 History of Present illness Narrative Images from the original note were not included. [facility] ([facility] Note: [facility] received the following discharge prescription(s): Medication reconciliation was completed with comparison to discharge reconciliation report. The prescription(s) will be delivered to the patient's bedside on 05/20/22. Total cost is $0. Yanira Her RPh,PharmD Specialty ([place]) [phone] [facility] [place] [phone] [facility] [phone] [place] [phone] [place] [phone] Bedside Delivery ([facility]) [phone] Attending I saw George Styles at the [facility] on 05/19/2022. I saw and independently [...] 650 mg 650 mg Oral Q6H PRN Eavn Bennett MD 650 mg at 05/18/22 1739 [...] MD Internal Medicine Daily Progress Note Patient: Goerge Styles, 1970, [id number] Physician: Liam Julian MD, PGY-3, Pager #[phone], [id number] Subjective/Interval History: No acute events overnight. Passed [...] MD (Peggy) Division of Hospital Medicine Pager [phone] Attending I saw George Styles at the [facility] on 05/18/2022. I saw and independently [...] 320 mg/mL for [facility] PRN Enzo Heatr, DO 15 mL at 05/17/22 110 [Held [...] Daily Progress Note Patient: George Styles, 1970, [id number] Physician: Nishant Gamez MD, PGY2, Pager #[phone], [email or web address] Subjective/Interval History: Nephrostomy tube placed yesterday with [...] to have stablized for this to be indirect sales representative. Daya Saldana MD (Peggy) Division of Hospital Medicine Pager [phone] Internal Medicine Daily Progress Note Patient: George Styles, 1970, [id number] Physician: Nishant Gamez MD, PGY2, Pager #[phone], [id number] Subjective/Interval History: Worsening creatinine this morning with minimal urine output. Paged IR to let them no of his worsening kidney function. They plan for nephrostomy tube placement this morning. Objective: Vitals: 05/17/22 0334 BP: 134/71 Pulse: 122 Resp: 20 Temp: 98.6 F (37 C) O2 Device: room air (05/17/22 033) Gen: NAD, well-appearing HENT: NCAT, EOMI, MMM [...] MD (Peggy) Division of Hospital Medicine Pager [phone] Attending I saw George Styles at the [facility] on 05/17/2022. I saw and independently [...] of chart and discussion with treatment team, Home Appliance Installer has not identified needs at this time. [...] follow. Introduced self and role of the chain sales representative to patient. Provided emotional and spiritual support and the patient responded by sharing their experience and discussed the following: - Spirituality/Taoist Affiliation: As a kid attended Jainism yarsanism but not a strong identity now - Family support - pt's brothers live close by Application Security Developer provided: - Supportive presence - Active listening - Validation of feelings/emotions Patient encouraged to request a chain sales representative as needed. Chaplains are available in-house 24 hours a day and 7 days a week. For urgent matters in [facility], please page [phone]. If the request is not urgent, please enter a consult. Consults are responded to within 24 hours. Angie Singh Mdiv, [facility] Trans[facility] [place] [address] Application Security Developer [facility] Application Security Developer Kirk [email or web address] 22/06 [facility] Pager [phone] 22/06 Pager ,[facility], and [place] 1500 22/06 David Pager [phone] 05/16/22 1129 Clinical Encounter Type Visited With Patient Visit Type Introduction Pastoral Time Spent 15 min Referral Other (See Comment) (Rounding) Spiritual Assessment Spiritual Observation Spirituality helpful;Identifies as (see comment) (Voodoo) Emotional Observation Coping well Hope Observation Hopeful and accepting Support Observation By Family Interventions Provided Active listening;Supportive presence Facilitated Verbalization of feelings;Sharing of life story;Identifying support system Explored Expectations X Ray Developer Education X Ray Developer Service Available Yes Educated Patient Outcomes Patient Outcomes Articulated purpose/meaning Plan of Care Continue Visiting PRN Internal Medicine Daily Progress Note Patient: George Styles, 1970, [id number] Physician: Nishant Gamez MD, PGY2, Pager #[phone], [id number] Subjective/Interval History: Overall feeling okay this morning. 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 [...] Supervision Transfer Assessment: Sit to Stand Transfer Yuba Level: Sit->Stand: independent Skilled Intervention/Details: Sit->Stand: x1 from EOB Stand to Sit Transfer Yuba Level: Stand->Sit: supervision Assistive Device: Stand->Sit: armed chair Skilled Rationale: Controlled descent for sitting, Verbal cues Gait/Functional Mobility: Gait Assessment Yuba Level: Gait: supervision Assistive Device: Gait: gait belt Gait Distance (feet): 200 Gait Deviations Identified: decreased grace, decreased step length, decreased stride length Gait Skilled Rationale: verbal, upright posture Skilled Intervention/Details - Gait: Pt with steady gait without LOB or complaints of SOB. Stairs: Stairs Assessment Yuba Level: Stair Negotiation: stand-by assist Assistive Device: Stair Negotiation: gait belt, left rail (ascending) Number of stairs: 9 Stairs Skilled Rationale: reciprocal pattern Outcome Score(s): [facility] Basic Mobility Inpatient Short Form Turning over in bed: 4 - No Assistance Sitting/standing from chair: 4 - No Assistance Moving from lying on back to sittin - No Assistance Moving to and from bed to chair: 4 - No Assistance Walk in hospital room: 3 - A Little Assistance Climbing 3-5 steps with a railin - A Little Assistance [facility] Mobility Raw Score: 22 CURRENT [facility] Mobility Functional Limitation/Modifier: 20.91% Currently Impaired [...] reported no concerns with discharging home with flor[place]ome support. 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 IADL History IADLs: independent Primary Language: Salvadorean Home Management Skills: independent Meal Prep Responsibility: [...] Assessment: Transfer Assessment: Sit to Stand Transfer Yuba Level: Sit->Stand: independent Skilled Rationale: Cues for increased safety Skilled Intervention/Details: Sit->Stand: x1 EOB Stand to Sit Transfer Yuba Level: Stand->Sit: supervision Assistive Device: Stand->Sit: gait belt, armed chair Skilled Rationale: Verbal cues, Controlled descent for sitting, Cues for increased safety Skilled Intervention/Details: Stand->Sit: cues for hand placement and controlled descent Functional Mobility: Functional Mobility Yuba Level: Functional Mobility/Gait: stand-by assist Assistive Device: Functional Mobility/Gait: gait belt Functional Mobility Distance: Distance needed for limited community mobility Functional Mobility Deficits: Activity tolerance, Balance, Decreased step length, Generalized weakness Functional Mobility Skilled Rationale: Verbal cues, Facilitate postural control Skilled Intervention/Details - Functional Mobility/Gait: cues for upright posture Outcome Score(s): [facility] Daily Activity Inpatient Short Form Putting on/Taking Off Lower Body Clothin - A Little Assistance Bathin - A Little Assistance Toiletin - A Little Assistance Putting on/Taking Off Upper Body Clothin - No Assistance Groomin - No Assistance Eatin - No Assistance [facility] Activity Raw Score: 21 CURRENT [facility] Activity Functional Limitation/Modifier: 32.79% Currently Impaired [...] DAY SURGERY MAIN OR KIDNEY TRANSPLANT W/O LAC DU FLAMBEAU NEPHRECTOMY N/A 04/12/2020 Laterality: N/A; Surgeon: LU [...] by: Mel Norman OT, OTR/L License #: [id number] pager # [phone] 05/20/2022 Upon discontinuation of Acute Care Occupational Therapy Services or patient discharge from the hospital this note represents the current Occupational Therapy Discharge Summary. documented in this encounter [facility] 05-20-2022 Hospital course Narrative Discharge [...] during his recent hospital stay at [facility]. As you may know, George [...] Saldana MD Division of Hospital Medicine p: [phone] f: [phone] CONSULTS DURING ADMISSION: IP CONSULT TO SURGERY - UROLOGY IP CONSULT TO NEPHROLOGY - TRANSPLANT (MEDICINE) IP CONSULT TO INTERVENTIONAL RADIOLOGY IP CONSULT TO PHYSICAL THERAPY IP CONSULT TO OCCUPATIONAL THERAPY IP CONSULT TO PHARMACY BEDSIDE DISCHARGE MED DELIVERY IMAGING / PROCEDURES / RESULTS: Should you require further information or copies of results or reports please contact Medical Information Management @ [phone] LABS AT TIME OF DISCHARGE: Lab Results [...] Bruno [address] / [place] [address] MEDICATIONS: Discharge Orders CT ABDOMEN/PELVIS WITHOUT CONTRAST [...] CAPS Generic drug: docusate Follow-up: Zuly Bruno, EXPEDITER CLERK [address] [facility] [phone] Schedule an appointment as soon as possible for a visit Follow-up appointment with your, primary care physician within 7-10 days, after discharge. [address] [facility] [phone] Follow up The department of urology will call you with a follow up appointment. LU Ovalle [address] 11[address] [facility] [phone] Follow up Please make a follow up appointment with Dr. Munoz's office. Upcoming Appointments (up to five)-Some appointments for Medical Center outpatient clinics or diagnostic testing locations are not displayed below Provider Department Dept Phone 06/04/2022 10:40 AM [facility] Interventional Radiology Clinic [phone] 06/27/2022 1:30 PM [facility] Department of Radiology Arrive at: Arrive to First Floor Registration Desk [phone] 06/27/2022 2:40 PM Ryan Yepez [facility] [place] Arrive at: Arrive to 2nd Floor, Registration [address] 10/31/2022 1:00 PM Steve Munoz [facility] [phone] 01/16/2023 9:40 AM TRANSPLANT HEPATOLOGY 3, [facility] Trans[facility] [phone] Associated attestation - Daya Saldana MD - [...] Saldana MD Division of Hospital Medicine Pager [phone] documented in this encounter [facility] 05-20-2022 Hospital Discharge instructions Giulia Cavazos [...] be changed by Interventional Radiology. Please call [phone] to schedule this appointment and with any questions or concerns you may have regarding the nephrostomy tube. If you have questions or concerns, please call Interventional Radiology at SOMEONE FROM INTERVENTIONAL RADIOLOGY WILL CALL YOU FOR A FOLLOW UP IN THE IR CLINIC Giulia Cavazos RN Nurse Coordinator Interventional Radiology Interventional Radiology Outpatient scheduling documented in this encounter [facility] 05-19-2022 Note Formatting of this [...] Ongoing Goal: Interdisciplinary Rounds/Family Conf Outcome: [facility] Note Formatting of this n ote might be different from the original. Discussed with [facility] re: possible urine culture performed at their facility. However, based on urinalysis completed at that time, which was only notable for hematuria, culture was not performed and sample no longer feasible for culture. Liam Julian MD Internal Medicine/Pediatrics, PGY-[address] [facility] 05-18-2022 Note Formatting of this n ote might be different from the original. 2002: IHIS message sent to Dr Justyn Wen, regarding patient passing a small kidney stone, about the size of pea. MD notified. Stone left in strainer in pt bathroom. 499: IHIS message sent to Dr Justyn Wen, regarding pt BP 174/77. [facility] 05-18-2022 Note Formatting of this [...] discharge/transition of care. Outcome: Ongoing [facility] 05-18-2022 Note Formatting of this [...] NS should instead be used. [facility] Work Phone: 05-18-2022 Note Formatting of this n ote might be different from the original. IHIS chat sent to Dr Tray Quintana, regarding pt BP 190/86. Pt complaining of pain at site of neph tube. PRN pain medication given per order parameters. Pt denies any other symptoms at this time. MD notified and aware. [facility] 05-17-2022 Note Formatting of this n ote might be different from the original. At 0900, I rounded with Dr. Gamez and Dr. Saldana. At that time I checked Mr. Styles's vital signs. His pulse oximeter was low and he was tachypneic. Verbal order at bedside to put nasal cannula on starting at 2liters oxygen and to provide incentive spirometer. [facility] 05-17-2022 Note Formatting of this n ote might be different from the original. Interventional Radiology procedure completed with IR Attending Dr. Heart / Dr. Le of percutaneous right nephrostomy tube placement transplant kidney 10.2 Fr Griffin acosta Pt tolerated procedure with moderate sedation local numbing agent . Transported to inpatient after phase I recovery. Post procedure orders in place. [facility] 05-16-2022 Note Formatting of this n ote might be different from the original. At 1530, I text tung Gomez MD that patient has only had 25ml urine output in matias this afternoon. [facility] 05-16-2022 Note Formatting of this [...] with questions. Evan Byrd MD Urology, PGY-2 #[id number] [facility] Work Phone: 05-16-2022 Note Formatting [...] care will be discharge to home. [facility] 05-16-2022 Consult note Associated Order (s): IP CONSULT TO NEPHROLOGY - TRANSPLANT (MEDICINE) I saw George Styles at the [facility] on 05/16/2022. Reason for Consultation: kidney [...] he was given flomax and sent home. [place] better but noticed more pain and decreased [...] and recommendations. Maxi Pringle MD [facility] Work Phone: 05-16-2022 Consult note Associated Order (s): IP CONSULT TO NEPHROLOGY - TRANSPLANT (MEDICINE) I saw George Styles at the [facility] on 05/16/2022. Reason for Consultation: kidney [...] he was given flomax and sent home. [place] better but noticed more pain and decreased [...] states he went to his local ED [facility] and he was put on Flomax and he did improve. Pt states last night he was unable to void with severe right sided abd pain. Pt states nausea and no vomiting or fevers. Pt states he went back to [facility] ED at 0100 and they placed a [...] orthotopic (N/A, 04/12/2020); and kidney transplant w/o timbi-sha shoshone nephrectomy (N/A, 04/12/2020). 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 The timbi-sha shoshone kidneys are progressively atrophic bilaterally compared to [...] of 06/14/2020 are no longer present. The timbi-sha shoshone distal right ureter is decompressed beyond this [...] with surgical history for renal graft and timbi-sha shoshone right urinary drainage, as a discrete ureteroneocystostomy is not identified, and the graft may be draining via a ureteroureterostomy. Urology consultation recommended. 3. The timbi-sha shoshone kidneys are bilaterally atrophic, with right renal sinus calcifications consistent with nonobstructing right timbi-sha shoshone renal calculi up to 6 mm. Normal [...] PGY-3, Department of Urologic Surgery Pager #: [phone] Associated attestation - Ryan Yepez MD - [...] continue flomax documented in this encounter [facility] 05-16-2022 Note Formatting of this [...] supported Trust Relationship/Rapport: care explained choices provided [facility] 05-16-2022 Note Formatting of this n ote might be different from the original. On admission to 0, a dual RN initial assessment of skin condition was performed by Kallie Lorenzana RN and Sheri Arguelles RN. Skin Assessment: WDL Jose Score: 20 LDA Added:N Kallie Lorenzana RN [facility] 05-15-2022 Emergency department Note Report given to Kallie RN at [address] [facility] 05-15-2022 Emergency department Note Report [...] Thursday and was sent home with [facility]. He went back to that ED [...] 04/12/2020 Laterality: N/A; Surgeon: LU Palma; Location: [facility] SAME DAY SURGERY MAIN OR KIDNEY TRANSPLANT W/O LAC DU FLAMBEAU NEPHRECTOMY N/A 04/12/2020 Laterality: N/A; Surgeon: LU Palma; Location: [facility] SAME DAY SURGERY MAIN OR OTHER [...] states he went to his local ED [facility] and he was put on Flomax and he did improve. Pt states last night he was unable to void with severe right sided abd pain. Pt states nausea and no vomiting or fevers. Pt states he went back to [facility] at 0100 and they placed a matias and CT scan completed and multiple kidney stones noted. [facility] as he had liver and kidney transplant in 03/2020. documented in this encounter [facility] 05-15-2022 History and physical note Internal Medicine Admission History & Physical Patient: George Styles, 1970, [id number] Physician: Evan Bennett MD, PGY1, Pager #[phone], GM 4 service Date of face to [...] 04/12/2020 Laterality: N/A; Surgeon: LU Palma; Location: [facility] SAME DAY SURGERY MAIN OR KIDNEY TRANSPLANT W/O LAC DU FLAMBEAU NEPHRECTOMY N/A 04/12/2020 Laterality: N/A; Surgeon: LU Palma; Location: [facility] SAME DAY SURGERY MAIN OR OTHER [...] erythema: Skin: No jaundice or rash Neuro: food counter attendant 3-7, 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 Strength grossly [...] dilation of the calyces may represent narrowing/partial [id number] ofthe ureter and mild hydronephrosis or sequela [...] Fred Prince MD Division of Hospital Medicine [phone] [facility] Work Phone: 05-15-2022 History and physical note Internal Medicine Admission History & Physical Patient: George Styles, 1970, [id number] Physician: Evan Bennett MD, PGY1, Pager #[phone], GM 4 service Date of face to [...] DAY SURGERY MAIN OR KIDNEY TRANSPLANT W/O LAC DU FLAMBEAU NEPHRECTOMY N/A 04/12/2020 Laterality: N/A; Surgeon: LU Palma; Location: [facility] SAME DAY SURGERY MAIN OR OTHER [...] erythema: Skin: No jaundice or rash Neuro: food counter attendant 3-7, 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 Strength grossly [...] dilation of the calyces may represent narrowing/partial [id number] ofthe ureter and mild hydronephrosis or sequela [...] Medicine [id number] documented in this encounter [facility] 05-15-2022 Emergency department Note Bladder scan with Dr Villatoro at bedside, 14ml noted [facility] 05-15-2022 Consult note Associated Order (s): [...] states he went to his local ED [facility] and he was put on Flomax and he did improve. Pt states last night he was unable to void with severe right sided abd pain. Pt states nausea and no vomiting or fevers. Pt states he went back to [facility] at 0100 and they placed a [...] orthotopic (N/A, 04/12/2020); and kidney transplant w/o timbi-sha shoshone nephrectomy (N/A, 04/12/2020). 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 The timbi-sha shoshone kidneys are progressively atrophic bilaterally compared to [...] of 06/14/2020 are no longer present. The timbi-sha shoshone distal right ureter is decompressed beyond this [...] with surgical history for renal graft and timbi-sha shoshone right urinary drainage, as a discrete ureteroneocystostomy is not identified, and the graft may be draining via a ureteroureterostomy. Urology consultation recommended. 3. The timbi-sha shoshone kidneys are bilaterally atrophic, with right renal sinus calcifications consistent with nonobstructing right timbi-sha shoshone renal calculi up to 6 mm. Normal [...] PGY-3, Department of Urologic Surgery Pager #: [phone] Associated attestation - Ryan Yepez MD - [...] before surgical intervention --may continue flomax [facility] Work Phone: 05-15-2022 Emergency department Note Advised Dr Schneider concerning no urine output via matias catheter. [facility] 05-15-2022 Physician Emergency department Note ED [...] care. Gian Villatoro MD 05/15/222003 [facility] Work Phone: 05-15-[address] Schneider made aware of only 30 ml urine via matias since arrival to room. [facility] 05-15-2022 Physician Emergency department Note [...] 04/12/2020 Laterality: N/A; Surgeon: LU Palma; Location: [facility] SAME DAY SURGERY MAIN OR KIDNEY TRANSPLANT W/O LAC DU [place]BEAU NEPHRECTOMY N/A 04/12/2020 Laterality: N/A; Surgeon: LU Palma; Location: [facility] SAME DAY SURGERY MAIN OR OTHER [...] incorrections. Matt Schneider MD Resident 05/15/222030 [facility] Work Phone: 05-15-2022 Emergency department Note Pt arrives from [facility] with kidney stones. Pt states he had right lower abd pain and right flank pain with blood in his urine since Thursday. Pt states he went to his local ED [facility] and he was put on Flomax and he did improve. Pt states last night he was unable to void with severe right sided abd pain. Pt states nausea and no vomiting or fevers. Pt states he went back to [facility] at 0100 and they placed a matias and CT scan completed and multiple kidney stones noted. [facility] as he had liver and kidney transplant in 03/2020. [facility] 03-14-2022 History of Present illness [...] No Mailing/Pickup Date: 03/17/2022 Shipping Address: [address] [place] [address] Contact Info: Specialty ([place]) [phone] [facility] [place] [phone] [facility] [phone] David [phone] Bedside Delivery ([facility]) [phone] documented in this encounter [facility] 06-14-2021 History [...] Goal Progress: Satisfactory Contact Info: Specialty (Yanci) [phone] Jakob [phone] [facility] [phone] [facility] [phone] Bedside Delivery ([facility]) [phone] [facility]: Call Information: Date [...] Location: Home Signature Required: Yes Shipping Address: [address] [place] [id number] Contact Info: Specialty (Yanci) [phone] Jakob [phone] [facility] [phone] David [phone] Bedside Delivery ([facility]) [phone] documented in this encounter [facility] Evaluation + Plan note Future Appointments Appointment Date:11/22/2024 09:00:00 AM Scheduled Provider:JONATHAN Almodovar APRN, Steph Wilson Location:[facility] Appointment Type:URO Office Visit [facility] Evaluation note Diagnosis FAYE (acute kidney injury)- Primary Acute kidney failure, unspecified Hydronephrosis due to obstruction of ureteral orifice Hydronephrosis due to obstruction of ureteral orifice FAYE (acute kidney injury) Acute kidney failure, unspecified [facility] Diagnosis Follow-up exam- Primary Unspecified follow-up examination [facility] Diagnosis Immunosuppressed status- Primary Unspecified disorder of immune mechanism Kidney replaced by transplant Liver replaced by transplant Abnormal blood chemistry Other abnormal blood chemistry High risk medication use Encounter for long-term (current) use of other medications Aftercare following organ transplant Liver transplant recipient [facility] Diagnosis Attention to nephrostomy- Primary [facility] Diagnosis Other hydronephrosis- Primary [facility] Diagnosis FAYE (acute kidney injury) Acute kidney failure, unspecified [facility] Diagnosis Other hydronephrosis- Primary -donor kidney transplant recipient Kidney replaced by transplant [facility] Diagnosis Other hydronephrosis [facility] Diagnosis 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* Diagnosis Abnormal blood chemistry- Primary Other abnormal blood chemistry Liver transplant recipient Kidney replaced by transplant Immunosuppressed status Unspecified disorder of immune mechanism Aftercare following organ transplant [facility] Diagnosis Kidney replaced by transplant- Primary 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 Diagnosis Histoplasmosis- Primary Histoplasmosis, [...] Fever Fever, unspecified 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 Diagnosis Heart failure, diastolic, acute- Primary Acute diastolic heart failure [facility] Diagnosis Liver lesion- Primary Other specified disorders of liver Liver transplant recipient High risk medication use Encounter for long-term (current) use of other medications Therapeutic drug monitoring Encounter for therapeutic drug monitoring Immunocompromised Unspecified immunity deficiency [facility] Diagnosis Kidney replaced by transplant- Primary [facility] Narrative No data available for this section [facility] progress note No data available for this section [facility] reason for referral (narrative)* Consultation (Routine) - New Request Specialty Diagnoses / Procedures Referred By Contac t Referred To Contact Interventional Radiology Diagnoses Hydronephrosis due to obstruction of ureteral orifice Daya Saldana MD [address] [place] [phone] Referral ID Status Reason Start Date Expiration Date V isits Requested Visits Authorized [id number] New Request 05/18/2022 06/12/2023 1 1 * Radiology (Emergency) - New Request Specialty Diagnoses / Procedures Referred By Contac t Referred To Contact Procedures US RENAL TRANSPLANT SCAN Daya Saldana MD [address] [place] [address] Referral ID Status Reason Start Date Expiration Date V isits Requested Visits Authorized [id number] New Request 05/16/2022 06/10/2023 1 1 * Consultation (Routine) - New Request Specialty Diagnoses / Procedures Referred By Contac t Referred To Contact Urology Diagnoses FAYE (acute kidney injury) Ryan Yepez MD [address] [place] [address] [address] [place] [phone] Referral ID Status Reason Start Date Expiration Date V isits Requested Visits Authorized [id number] New Request 05/16/2022 06/10/2023 1 1 * MRI/CAT Scan (Routine) - New Request Specialty Diagnoses / Procedures Referred By Contac t Referred To Contact Diagnoses FAYE (acute kidney injury) Procedures CT ABDOMEN/PELVIS WITHOUT CONTRAST CHG CT SCAN,ABDOMENT AND PELVIS,W/O CONTRAST Ryan Yepez MD [address] [facility] [address] [place] [address] Referral ID Status Reason Start Date Expiration Date V isits Requested Visits Authorized [id number] New Request 05/16/2022 06/10/2023 1 1 * (Routine) - Pending Review Specialty Diagnoses / Procedures Referred By Contac t Referred To Contact Procedures PLATELET MONITORING PER PROTOCOL Daay Saldana MD [address] [place] [address] Referral ID Status Reason Start Date Expiration Date V isits Requested Visits Authorized [id number] Pending Review 05/15/2022 06/09/2023 1 1 * (Routine) - Pending Review Specialty Diagnoses / Procedures Referred By Contac t Referred To Contact Procedures DVT/VTE RISK ASSESSMENT Daya Saldana MD [address] [place] [address] Referral ID Status Reason Start Date Expiration Date V isits Requested Visits Authorized [id number] Pending Review 05/15/2022 06/09/2023 1 1 * (Routine) Specialty Diagnoses / Procedures Referred By Contac t Referred To Contact Evan Bennett MD [address] [place] [address] Referral ID Status Reason Start Date Expiration Date Visits Re quested Visits Authorized * (Routine) Specialty Diagnoses / Procedures Referred By Deni t Referred To Contact Evan Bennett MD [address] [place] [address] Referral ID Status Reason Start Date Expiration Date Visits Re quested Visits Authorized [facility] for referral (narrative)* Consultation (Routine) - New Request Specialty Diagnoses / Procedures Referred By Deni t Referred To Contact Sleep Medicine Diagnoses Hypoxia Kevin Prince MD [address] [place] [address] Referral ID Status Reason Start Date Expiration Date V isits Requested Visits Authorized [id number] New Request 09/10/2023 10/04/2024 1 1 * MRI/CAT Scan (Routine) - New Request Specialty Diagnoses / Procedures Referred By Deni t Referred To Contact Diagnoses Histoplasmosis Procedures CT CHEST WITHOUT CONTRAST CHG DIAGNOSTIC COMPUTED TOMOGRAPHY THORAX W/O Kevin Zarate MD [address] [place] [address] Referral ID Status Reason Start Date Expiration Date V isits Requested Visits Authorized [id number] New Request 09/10/2023 10/04/2024 1 1 * Radiology (Routine) - New Request Specialty Diagnoses / Procedures Referred By Deni t Referred To Contact Procedures US RENAL TRANSPLANT SCAN Steve Munoz MBBS [address] [place] [address] Referral ID Status Reason Start Date Expiration Date V isits Requested Visits Authorized [id number] New Request 08/29/2023 09/22/2024 1 1 * (Routine) - New Request Specialty Diagnoses / Procedures Referred By Contac t Referred To Contact Procedures PLATELET MONITORING PER PROTOCOL Steve Munoz MBBS [address] [place] [address] Referral ID Status Reason Start Date Expiration Date V isits Requested Visits Authorized [id number] New Request 08/28/2023 09/21/2024 1 1 * (Routine) - New Request Specialty Diagnoses / Procedures Referred By Contac t Referred To Contact Procedures DVT/VTE RISK ASSESSMENT Steve Munoz MBBS [address], [place] [address] Referral ID Status Reason Start Date Expiration Date V isits Requested Visits Authorized [id number] New Request 08/28/2023 09/21/2024 [address] [facility] Instructions * [...] Sophie Cary. Sophie Cary is your pre-patient experience coordinator she can be reached at [phone] at any time for questions during the pre-transplant process. Your evaluation is complete pendin. Abdominal ultrasound. 2. 6 minute walk test. 3. Cardiology evaluation. Additionally, your hair worker will recommend testing to screen for coronary [...] after you have satisfied requirements dictated by [employer] company. Once your testing is complete, we [...] ___ Other Name MRN * Christin Elizabeth, SCREEDMAN-EXPEDITER CLERK - 10/19/2018 9:00 AM EST Formatting of this note may be different from the original. History of Present Illness: Chief Complaint Patient presents with Follow-up Cirrhosis George Styles is a 48 y.o. male who presents to the [facility] Gastroenterology Clinic today regarding his diagnosis/chief complaint(s) of Cirrhosis secondary to ETOH, with ESRD follows with Dr. Orr. Currently undergoing evaluation for liver/kidney transplant. Has been seen in transplant clinic for eval. Still undergoing pre testing. Diagnosed in April 2018. Last drink was immediately prior to hospital admission in [place] for ACLF. Hospital course notable for ARF [...] kidney transplant evaluation. Pt was AOx3. Transplant Manager Provider Relations role/function was explained and reviewed. The patient was informed that the results of this assessment will be shared with the referring provider and the transplant team. The patient verbalized understanding of this information. The [facility] psychosocial assessment consent form has been explained to patient and has been signed. Pt is completing this evaluation with brother (David) in the Outpatient setting. [facility] educated pt on the benefits of completing/filing advanced directives and resources were offered. Pt identifies with TAOIST roman catholic. Pt confirms being a [place] Citizen. Pt.'s primary language is Salvadorean. Pt confirms the ability to read,write, and understand Salvadorean. Pt denies potential donors. Donor cards and [...] has valid license, does not regularly drive ([facility] recommends that he not to drive). [...] organ related disease etoh cirrohosis April in [facility] for thirty days. Pt reports learning that [...] well as referred him to pre patient experience coordinator. Pt and support demonstrated moderate understanding [...] Patient's brother David is a self employed agricultural extension agent. Additional support includes his other brother Tyshawn and his Mary live fifteen minutes away. Of note Mary is a plastic press molder for a [employer] is available to assist transit department clerk. He confirms being comfortable asking for [...] in 2010, he was employed by the [employer]. He has access to SSDI payment (SSDI [...] court ordered treatment after a DUI charge [facility] in [place], court ordered treatment in 2001 and in [...] by patient from his primary medical provider- [facility] patient was noted as attending an [...] He was provided with local AOD resources, [facility] AOD informational packet. Pt was referred [...] new visit Date of service: 10/12/2018 -Referring house wirer helper for today's consult: -Primary Care Provider: Zuly Bruno CC: Chief Complaint Patient presents with Liver Recipient Evaluation History of Present Illness George Styles is a 48 y.o. male who presents to the [facility] liver transplant surgery clinic [...] EST Timed up and go 9.9 seconds Casket Trimmer Left 52.8 pounds Right 44.9 pounds Waist circ 38.5 inches * Sophie Cary RN - 10/12/2018 10:00 AM EST Formatting of this note may be different from the original. Patient George Styles ([id number]), accompanied by his brother, was seen on [...] any further questions. Sophie DON, RN Liver Musical Performer Etiology: ETOH HCC: No ETOH: Yes Last [...] Orr MD [address] [address] Status Reason Specialty Diagnoses / Procedures Referred By Contact Referred To Contact New Request Diagnoses Cirrhosis of liver with ascites, unspecified hepatic cirrhosis type Procedures US ABDOMEN RUQ/LIVER/GB Yovani Orr MD [address] [address] Specialty Diagnoses / Procedures Referred By Contac t Referred To Contact Diagnoses FAYE (acute kidney injury) Procedures CT ABDOMEN/PELVIS WITHOUT CONTRAST CHG CT SCAN,ABDOMENT AND PELVIS,W/O CONTRAST Central Scheduling [address] [place] [phone] Referral ID Status Reason Start Date Expiration Date V isits Requested Visits Authorized [id number] Pending Review 05/16/2022 06/10/2023 1 1 Specialty Diagnoses / Procedures Referred By Contac t Referred To Contact Diagnoses Other hydronephrosis Procedures FLUORO IMAGING FOR UROLOGY Ryan Yepez MD [address] [facility] [address] [place] [address] Referral ID Status Reason Start Date Expiration Date V isits Requested Visits Authorized [id number] New Request 07/07/2022 08/01/2023 1 1 Specialty Diagnoses / Procedures Referred By Contac t Referred To Contact Procedures DIRECT ADMIT REQUEST Steve Munoz MBBS [address] [place] [address] Referral ID Status Reason Start Date Expiration Date V isits Requested Visits Authorized [id number] New Request 08/28/2023 09/21/2024 1 1 Specialty Diagnoses / Procedures Referred By Contac t Referred To Contact Radiology Diagnoses DARLENE (obstructive sleep apnea) Primary hypertension (CMS/HCC) Bilateral lower extremity edema Shortness of breath Procedures Echocardiogram 2D complete Zuly Bruno, BA [address] [place] [address] Referral ID Status Reason Start Date Expiration Date Visits Requested Visits Authorized [id number] Incomplete Perform Procedure 01/06/2024 07/04/2024 1 1 Specialty Diagnoses / Procedures Referred By Contac t Referred To Contact Procedures US IMAGING REGIONAL ANESTHESIA Kehinde Gutierrez MD [address] [place] [address] Referral ID Status Reason Start Date Expiration Date V isits Requested Visits Authorized [id number] New Request 01/22/2024 02/15/2025 1 1 Specialty Diagnoses / Procedures Referred By Contac t Referred To Contact Cardiovascular Medicine Diagnoses Heart failure, diastolic, acute Kelvin Pacheco MD, MBBS [address] [place] [address] Referral ID Status Reason Start Date Expiration Date V isits Requested Visits Authorized [id number] New Request 01/20/2024 02/13/2025 1 1 Specialty Diagnoses / Procedures Referred By Contac t Referred To Contact Procedures US ABDOMEN LIVER DOPPLER US ABDOMEN LIVER TRANSPLANT DOPPLER Timothy Joseph MD [address] [facility] [address] [place] [address] Referral ID Status Reason Start Date Expiration Date V isits Requested Visits Authorized [id number] New Request 01/16/2024 02/09/2025 1 1 Specialty Diagnoses / Procedures Referred By Contac t Referred To Contact Procedures DVT/VTE RISK ASSESSMENT Kelvin Pacheco MD, MBBS [address] [place] [address] Referral ID Status Reason Start Date Expiration Date V isits Requested Visits Authorized [id number] New Request 01/16/2024 02/09/2025 1 1 Specialty Diagnoses / Procedures Referred By Contac t Referred To Contact Procedures PLATELET MONITORING PER PROTOCOL Kelvin Pacheco MD, MBBS [address] [place] [address] Referral ID Status Reason Start Date Expiration Date V isits Requested Visits Authorized [id number] New Request 01/16/2024 02/09/2025 1 1 Referral ID Status Reason Start Date Expiration Date V isits Requested Visits Authorized [id number] New Request 01/16/2024 02/09/2025 1 1 Specialty Diagnoses / Procedures Referred By Contac t Referred To Contact Procedures ECG Kelvin Pacheco MD, MBBS [address] [place], [place] [phone] Referral ID Status Reason Start Date Expiration Date V isits Requested Visits Authorized [id number] New Request 01/16/2024 02/09/2025 1 1 Specialty Diagnoses / Procedures Referred By Contac t Referred To Contact Diagnoses Liver lesion Procedures MRI ABDOMEN WITH AND WITHOUT CONTRAST CHG MRI ABDOMEN W/O & W/CONTRAST MATERIAL Daisha Max, DO [address] [place] [phone] Referral ID Status Reason Start Date Expiration Date V isits Requested Visits Authorized [id number] New Request 06/17/2024 07/12/2025 1 1 Advance Directives No Advanced Directives Records FoundDocuments on File Type Date Recorded Patient Games Dealer Expl anation Advance Directives and Living Will Power of Negotiations Director Latest Code Status on File Code Status [...] Found No data available for this section No Family History Records Found Additional Source Comments Reason for Visit (unrecogniz ed section and content) Reason Comments Follow-up Cirrhosis Status Reason Specialty Diagnoses / Procedures Referred By Contact Referred To Contact New Request Diagnoses Cirrhosis of liver with ascites, unspecified hepatic cirrhosis type Procedures US ABDOMEN RUQ/LIVER/GB Yovani Orr MD [address] [address] Status Reason Specialty Diagnoses / Procedures Referre d By Contact Referred To Contact Denied Diagnoses Alcoholic cirrhosis, unspecified whether ascites present Pre-transplant evaluation for liver transplant Procedures MRI ABDOMEN WITH CONTRAST MI MRI, ABDOMEN W/CONTRAST Yovani Orr MD [address] [address] Reason Comments Liver Recipient Evaluation Status Reason Specialty Diagnoses / Procedures Referred By Contact Referred To Contact New Request Transplant / Transplant Surgery Procedures PRE NEW PATIENT Yovani Orr MD [address] [address] Alfredito Restrepo MD [address], [place] [address] Reason Comments Reschedule Reason Comments Outside Medical Records Request Reason Comments Social Work Follow-up Reason Comments Kidney Stone Specialty Diagnoses / Procedures Referred By Deni edwards Referred To Contact Diagnoses Obstructing kidney stone, s/p kidney transplant 2019 Daya Saldana MD [address] [place] [address] [facility] [address] [place] [address] Referral ID Status Reason Start Date Expiration Date Visits Re quested Visits Authorized [id number] 1 1 Reason Comments Follow-up Reason Comments Kidney Recipient Follow-up Liver Recipient Follow-up Reason Comments Consult Reason Comments New Patient Hospital follow up Specialty Diagnoses / Procedures Referred By Deni edwards Referred To Contact Urology Diagnoses hosp fu with [address] prior Procedures NEW TO DOC/RET PATIENT Zuly Bruno, EXPEDITER CLERK [address] [place] [address] Ryan Yepez MD [address] [facility] [address] [place] [address] Referral ID Status Reason Start Date Expiration Date Visits Re quested Visits Authorized [id number] Closed 06/27/2022 07/22/2023 1 1 Specialty Diagnoses / Procedures Referred By Contac t Referred To Contact Diagnoses FAYE (acute kidney injury) Procedures CT ABDOMEN/PELVIS WITHOUT CONTRAST CHG CT SCAN,ABDOMENT AND PELVIS,W/O CONTRAST Central Scheduling [address] [place] [phone] Referral ID Status Reason Start Date Expiration Date V isits Requested Visits Authorized [id number] Pending Review 05/16/2022 06/10/2023 1 1 Reason Comments Follow-up Specialty Diagnoses / Procedures Referred By Contac t Referred To Contact Urology Diagnoses 1 week fu post NT clamp Procedures RETURN PATIENT Zuly Bruno, ROB [address] [place] [address] Ryan Yepez MD [address] [facility] [address] [place] [address] Referral ID Status Reason Start Date Expiration Date Visits Requested Visits Authorized [id number] Authorized - [facility] 07/07/2022 08/01/2023 2 2 Specialty Diagnoses / Procedures Referred By Contac t Referred To Contact Diagnoses Other hydronephrosis Procedures FLUORO IMAGING FOR UROLOGY Ryan Yepez MD [address] [facility] [address] [place] [address] Referral ID Status Reason Start Date Expiration Date V isits Requested Visits Authorized [id number] New Request 07/07/2022 08/01/2023 1 1 Specialty Diagnoses / Procedures Referred By Contac t Referred To Contact Urology Diagnoses 1 week fu post NT clamp Procedures RETURN PATIENT Zuly Bruno CNP [address] [place] [address] Ryan Yepez MD [address] [facility] [address] [place] [phone] Referral ID Status Reason Start Date Expiration Date Visits Re quested Visits Authorized [id number] Closed 07/07/2022 08/01/2023 2 2 Reason Comments Liver Recipient Follow-up Reason Comments Kidney Recipient Follow-up Reason Comments Kidney Recipient Follow-up Specialty Diagnoses / Procedures Referred By Contac t Referred To Contact Diagnoses Kidney replaced by transplant Steve Munoz MBBS [address] [place] [address] [facility] [address] [place] [address] Referral ID Status Reason Start Date Expiration Date Visits Re quested Visits Authorized [id number] 1 1 Specialty Diagnoses / Procedures Referred By Contac t Referred To Contact Diagnoses Pleural effusion on right PNEUMONIA- HX LIVER AND KIDNEY TRANSPLANT Kevin Prince MD [address] [place] [address] [facility] [address] [place] [address] Referral ID Status Reason Start Date Expiration Date Visits Re quested Visits Authorized [id number] 1 1 Reason Comments New Patient Specialty Diagnoses / Procedures Referred By Contac t Referred To Contact Cardiovascular Medicine Diagnoses Heart failure, diastolic, acute Kelvin Pacheco MD, MBBS [address] 1[address] [place] [address] Referral ID Status Reason Start Date Expiration Date Visits Requested Visits Authorized [id number] Authorized - 01/20/2024 02/13/2025 5 5 Reason Comments Liver Recipient Follow-up (unrecognized sect ion and content) No Status Records FoundNo Status Records FoundNo Status Records FoundNo Status Records FoundNo Status Records FoundNo Status Records FoundNo Status Records Found INFORMATION SOURCE (unrecogn ized section and content) DATE CREATED AUTHOR 01/07/2020 Karlie ariza DATE CREATED AUTHOR AUTHOR'S ORGANIZ ATION 01/27/2021 [facility] DATE CREATED AUTHOR AUTHOR'S ORGANIZ ATION 05/11/2023 [facility] DATE CREATED AUTHOR AUTHOR'S ORGANIZ ATION 06/03/2024 [facility] DATE CREATED AUTHOR AUTHOR'S ORGANIZ ATION 09/09/2024 [facility] DATE CREATED AUTHOR AUTHOR'S ORGANIZ ATION 09/10/2024 [facility] DATE CREATED AUTHOR AUTHOR'S ORGANIZ ATION 11/10/2024 [facility] dical Specialists EPIC Care Teams (unrecognized sec tion and content) Electrical Research Engineer Relationship Specialty Start Date End Date Zuly Bruno CNP PCP - General 07/19/18 Comfort Rivera [facility] [address] [facility] [address] [place] [address] Pharmacist Pharmacist 05/16/20 Angel Carpio RP,PharmD Pharmacist Pharmacist 05/16/20 Te Leigh RP,PharmD Pharmacist Pharmacist 01/09/21 Electrical Research Engineer Relationship Specialty Start Date End Date Zuly Bruno CNP PCP - General 07/19/18 Comfort Rivera [facility] [address] [facility] [address] [place] [address] Pharmacist Pharmacist 05/16/20 Angel Carpio RPh,PharmD Pharmacist Pharmacist 05/16/20 Te Leigh RP,PharmD Pharmacist Pharmacist 01/09/21 Electrical Research Engineer Relationship Specialty Start Date End Date Zuly Bruno CNP PCP - General 07/19/18 Electrical Research Engineer Relationship Specialty Start Date End Date Zuly Bruno CNP PCP - General 07/19/18 Electrical Research Engineer Relationship Specialty Start Date End Date Zuly Bruno CNP PCP - General 07/19/18 Electrical Research Engineer Relationship Specialty Start Date End Date Zuly Bruno CNP PCP - General 07/19/18 Electrical Research Engineer Relationship Specialty Start Date End Date Zuly Bruno CNP PCP - General 07/19/18 Electrical Research Engineer Relationship Specialty Start Date End Date Zuly Bruno CNP PCP - General 07/19/18 Electrical Research Engineer Relationship Specialty Start Date End Date Zuly Bruno CNP PCP - General 07/19/18 Electrical Research Engineer Relationship Specialty Start Date End Date Zuly Bruno CNP PCP - General 07/19/18 Electrical Research Engineer Relationship Specialty Start Date End Date Zuly Bruno CNP PCP - General 07/19/18 Electrical Research Engineer Relationship Specialty Start Date End Date Zuly Bruno CNP PCP - General 07/19/18 Electrical Research Engineer Relationship Specialty Start Date End Date Zuly Bruno CNP PCP - General 07/19/18 Electrical Research Engineer Relationship Specialty Start Date End Date BrianlatishaZuly tipton CNP PCP - General 07/19/18 Electrical Research Engineer Relationship Specialty Start Date End Date LexiesylvesterlatishaZuly tipton CNP PCP - General 07/19/18 Electrical Research Engineer Relationship Specialty Start Date End Date Zuly Bruno CNP PCP - General 07/19/18 Electrical Research Engineer Relationship Specialty Start Date End Date Zuly Bruno CNP PCP - General 07/19/18 Evan White DO [facility] [place] [address] Infectious Disease Infectious Disease 09/09/23 Electrical Research Engineer Relationship Specialty Start Date End Date Zuly Bruno CNP PCP - General 07/19/18 Evan White DO [address] [place] [address] Infectious Disease Infectious Disease 09/09/23 Electrical Research Engineer Relationship Specialty Start Date End Date Zuly Bruno CNP PCP - General 07/19/18 Evan White DO [address] [place] [address] Infectious Disease Infectious Disease 09/09/23 Electrical Research Engineer Relationship Specialty Start Date End Date Momo Verdugo MD PCP - General Family Medicine 05/21/23 Electrical Research Engineer Relationship Specialty Start Date End Date Momo Verdugo MD PCP - General Family Medicine 05/21/23 Electrical Research Engineer Relationship Specialty Start Date End Date Momo Verdugo MD PCP - General Family Medicine 05/21/23 Electrical Research Engineer Relationship Specialty Start Date End Date Zuly Bruno CNP PCP - General 07/19/18 Evan White DO [facility] [place] [address] Infectious Disease Infectious Disease 09/09/23 Electrical Research Engineer Relationship Specialty Start Date End Date Zuly Bruno CNP PCP - General 07/19/18 Evan White DO [facility] [place] [address] Infectious Disease Infectious Disease 09/09/23 Electrical Research Engineer Relationship Specialty Start Date End Date Zuly Bruno CNP PCP - General 07/19/18 Evan White DO [address] [place] [address] Infectious Disease Infectious Disease 09/09/23 Electrical Research Engineer Relationship Specialty Start Date End Date Zuly Bruno CNP PCP - General 07/19/18 Evan White DO [facility] [place] [address] Infectious Disease Infectious Disease 09/09/23 Electrical Research Engineer Relationship Specialty Start Date End Date LexiesylvesterlatishaZuly tipton CNP PCP - General 07/19/18 Evan White DO [address] [place] [address] Infectious Disease Infectious Disease 09/09/23 Electrical Research Engineer Relationship Specialty Start Date End Date BrianlatishaZuly tipton CNP PCP - General 07/19/18 Electrical Research Engineer Relationship Specialty Start Date End Date Lexiesylvesterjose eZuly CNP PCP - General 07/19/18 Electrical Research Engineer Relationship Specialty Start Date End Date BrianlatishaZuly tipton CNP PCP - General 07/19/18 Electrical Research Engineer Relationship Specialty Start Date End Date BrianlatishaZuly tipton CNP PCP - General 07/19/18 Electrical Research Engineer Relationship Specialty Start Date End Date LexiesylvesterAnnie dorantesROB feliz PCP - General 07/19/18 Electrical Research Engineer Relationship Specialty Start Date End Date LexiesylvesterAnnie dorantestray ROB PCP - General 07/19/18 Electrical Research Engineer Relationship Specialty Start Date End Date Zuly Bruno ROB PCP - General 07/19/18 Electrical Research Engineer Relationship Specialty Start Date End Date Momo Verdugo MD [address] [place] [address] PCP - General Family Medicine 02/11/24 Zuly Bruno NP [address] [place] [address] Nurse Practitioner Family Medicine 02/11/24 Kasandra Thomas DO [address] [place] [address] Referring Physician Neurology 02/17/24 Scheduled Active and Recently Administ ered Medications (unrecognized section and content) Medication Order 05/18/2022 05/19/2022 05/20/2022 allopurinol (ZYLOPRIM) tablet 100 mg 100 mg, Oral, DAILY, First dose (after last modification) on 05/17/22 at 0900, Until Discontinued 08 (Given - Provider: Mel Hampton RN) 08 (Given - Provider: Josey Braun RN) 09 (Given - Provider: Leon Cook, SAMI) amLODIPine [...] swallowed separately. 0805 (Given - Provider: Josey Bruan RN) potassium chloride (K-DUR) tablet ER 40 [...] Isaac RN)1925 (Rate/Dose Verify - Provider: Carolyn sIaac RN) 2059 (Stopped - Provider: Carolyn Isaac [...] Oral, EVERY 6 HOURS NEEDED, Starting on Thu22 at 2209, Until Thu05/20/22 at 2110, Cough, [...] 0753 (Given - Provider: Aixa Holden, SAMI) 0829 [...] Lyman, SAMI) 0841 (Given - Provider: Terra Heart RN)1053 [...] - Reason: Transfer to a Procedural area)141 ([facility] Unhold - Provider: Automatic Transfer)2008 (Given [...] 0842 (Given - Provider: Terra Heart RN)1053 ([facility] Hold - Provider: Automatic Transfer - Reason: Transfer to a Procedural area)141 ([facility] Unhold - Provider: Automatic Transfer)2008 (Given [...] 08 (Given - Provider: Terra Heart RN)105 ([facility] Hold - Provider: Automatic Transfer - Reason: Transfer to a Procedural area)141 ([facility] Unhold - Provider: Automatic Transfer)2008 (Given - Provider: Tati Ahmadi RN) 919 (Given - Provider: Terra Heart RN) Sulfamethoxazole-trime thoprim (BACTRIM DS) 800-160 MG per tablet 1 tablet 1 tablet, Oral, THREE TIMES WEEKLY (Once per day on Thursday), First dose on Thu01/18/24 at 0900, Until Discontinued 08 (Given - Provider: Terra Heart RN)1052 ([facility] Hold - Provider: Automatic Transfer - Reason: Transfer to a Procedural area)1413 ([facility] Unhold - Provider: Automatic Transfer) tacrolimus (PROGRAF) susp 0.2 mg 0.2 mg, Oral, CUSTOM FREQUENCY (Once per day on Thursday), First dose on 01/16/24 at 0900, Until Discontinued, Caution check route of administration. For sublingual administration, place liquid under tongue and allow absorption. 08 (Given - Provider: Erica Gudino RN) 1052 ([facility] Hold - Provider: Automatic Transfer - Reason: Transfer to a Procedural area)141 ([facility] Unhold - Provider: Automatic Transfer) 922 (Given - Provider: Terra Heart RN) Tamsulosin HCl (FLOMAX) capsule 0.4 mg 0.4 mg, Oral, DAILY, First dose on 01/16/24 at 0900, Until Discontinued, Slow release product. Do not chew or crush 42 (Given - Provider: Erica Gudino RN) 08 (Given - Provider: Terra Heart RN)105 ([facility] Hold - Provider: Automatic Transfer - Reason: Transfer to a Procedural area)141 ([facility] Unhold - Provider: Automatic Transfer) 919 (Given [...] 0841 (Given - Provider: Terra Heart RN)1053 ([facility] Hold - Provider: Automatic Transfer - Reason: Transfer to a Procedural area)1414 ([facility] Unhold - Provider: Automatic Transfer) 0920 [...] from all sources in 24 hours. 1053 ([facility] Hold - Provider: Automatic Transfer - Reason: Transfer to a Procedural area)1414 ([facility] Unhold - Provider: Automatic Transfer)1806 (Given [...] 200-200 mg and Simethicone 20 mg) 1053 ([facility] Hold - Provider: Automatic Transfer - Reason: Transfer to a Procedural area)1414 ([facility] Unhold - Provider: Automatic Transfer) guaiFENesin (ROBITUSSIN) oral solution 400 mg 400 mg, Oral, EVERY 6 HOURS NEEDED, Starting on 01/16/24 at 0202, Until 01/23/24 at 1752, Cough, Congestion 1053 ([facility] Hold - Provider: Automatic Transfer - Reason: Transfer to a Procedural area)1414 ([facility] Unhold - Provider: Automatic Transfer) HYDROmorphone [...] 0016, Until 01/23/24 at 1752, Insomnia 1053 ([facility] Hold - Provider: Automatic Transfer - Reason: Transfer to a Procedural area)1414 ([facility] Unhold - Provider: Automatic Transfer)2355 (Given - Provider: Tati Ahmadi, SAMI) Ondansetron (ZOFRAN) tablet 4 mg(Linked Group 1) 4 mg, Oral, EVERY 6 HOURS NEEDED, Starting on 01/16/24 at 0202, Until 01/23/24 at 1752, Nausea / Vomiting, 1st line for Nausea/Vomiting 1053 ([facility] Hold - Provider: Automatic Transfer - Reason: Transfer to a Procedural area)1414 ([facility] Unhold - Provider: Automatic Transfer)1809 (See Alternative - Provider: Terra Heart RN) 0430 (See Alternative - Provider: Tati Ahmadi, SAMI)1415 (Given - Provider: Terra Heart, SAMI) Ondansetron 4mg/2ml (ZOFRAN) injection 4 mg(Linked Group 1) 4 mg, Intravenous, EVERY 6 HOURS NEEDED, Starting on 01/16/24 at 0202, Until 01/23/24 at 1752, Nausea / Vomiting, 1st line for Nausea/Vomiting 1053 ([facility] Hold - Provider: Automatic Transfer - Reason: Transfer to a Procedural area)1414 ([facility] Unhold - Provider: Automatic Transfer)1809 (Given [...] - Reason: Transfer to a Procedural area)1414 ([facility] Unhold - Provider: Automatic Transfer)2349 (Given [...] BE BASED ON THE PRIMARY CLINICAL RECORDS. [facility] provides no warranty or guarantee of the accuracy or completeness of information in this document.
[2024-11-21 07:02] LABS: Basophils Percent Auto 0.7 % (0.2-2.0); Eosinophils Absolute Auto 0.1 10^3/uL (0.0-0.7); Eosinophils Percent Auto 2.6 % (0.9-7.0); Hematocrit 47.5 % (42.0-54.0); Hemoglobin 15.6 g/dL (14.0-18.0); Lymphocytes Absolute Auto 1.6 10^3/uL (1.2-3.8); Lymphocytes Percent Auto 36.3 % (20.5-60.0); Mean Corpuscular HGB Conc 32.8 g/dL (29.9-35.2); Mean Corpuscular Hemoglobin 28.6 pg (25.9-34.0); Mean Corpuscular Volume 87.2 fL (80.0-94.0); Mean Platelet Volume 9.5 fL (9.5-13.5); Monocytes Absolute Auto 0.4 10^3/uL (0.3-0.8); Monocytes Percent Auto 9.8 % (1.7-12.0); Neutrophils Absolute Auto 2.2 10^3/uL (1.4-6.5); Neutrophils Percent Auto 50.6 % (43.0-75.0); Platelet Count 230 10^3/uL (150-450); Red Blood Count 5.45 10^6/uL (4.70-6.10); Red Cell Distribution Width 12.5 % (11.0-15.0); White Blood Count 4.3 10^3/uL (4.0-11.0)
[2024-11-21 07:23] LABS: Alanine Aminotransferase 19 U/L (16-63); Alkaline Phosphatase 93 U/L (46-116); Anion Gap 10.9; Aspartate Amino Transferase 16 U/L (15-37); BUN Creatinine Ratio 10.9; Bilirubin Direct 0.2 mg/dL (0.0-0.2); Bilirubin Total 1.1 mg/dL (0.2-1.0); Calcium 9.4 mg/dL (8.5-10.1); Carbon Dioxide 27.9 mmol/L (21.0-32.0); Chloride 106 mmol/L (98-107); Estimated GFR (African America >60 (>=60 mL/min/1.73m^2); Estimated GFR (Non-African Ame 58 (>=60 mL/min/1.73m^2); Gamma Glutamyl Transpeptidase 23 U/L (15-85); Glucose 114 mg/dL (74-106); Magnesium 1.9 mg/dL (1.8-2.4); Phosphorus 2.6 mg/dL (2.6-4.7); Potassium 3.8 mmol/L (3.5-5.1); Sodium 141 mmol/L (136-145)
[2024-11-24 13:07] LABS: Tacrolimus (FK506), Blood 4.3 ng/mL (2.0-20.0)
== END 2024-11-21 06:33 | disposition home or self-care (01) ==
LOC: LAB 06:34
PROVIDERS: PCP Nurse Practitioner
DX: Z79.899 Other long term (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 (principal); Z94.4 Liver transplant status; Z48.298 Encounter for aftercare following other organ transplant; Z51.81 Encounter for therapeutic drug level monitoring
CPT/HCPCS: 36415; 80048; 80197; 82042; 82247; 82248; 82977; 83735; 84075; 84100; 84450; 84460; 85025

== ENCOUNTER 2024-12-28 06:36 | Outpatient (OUT) | payer MEDICARE, MEDICAID, SELFPAY ==
--- OUTSIDE RECORDS SUMMARY | 2024-12-28 06:47 | XMS_ITS | CCD ---
Author Organization [facility] Care Team Providers Care Renewable Energy Consultant Name Role Phone Lexieevi Zuly Unavailable Unavailable Primary Care Provider Unavailabl e KASMANI, ROB Referring Unavailable KASMANI, ROB Referring Unavailable KASMANI, ROB Referring Unavailable RIST, RENA Referring Unavailable JOHARTANA S Referring Unavailable RIST, RENA Referring Unavailable RIST, RENA Referring Unavailable RIST, RENA Referring Unavailable RIST, RENA Referring Unavailable PEPE CASE Attending Unavailable PEPE CASE Admitting Unavailable AICHHOLZ, ZULY Referring Unavailable AICHHOLZ, ZULY Primary Care Unavailable Aichholz [facility] Primary Care Provider [phone] Miguel [facility], Comfort Che Unavailable Shirin [facility],PharmD, Angel Unavailable Unavailab makayla Leigh [facility],PharmD, Te Unavailable Unavai lable Aicholz [facility] Primary Care Provider CHANDUC, DR BURCH Admitting Unavailable MISC, DR BURCH Consulting Unavailable AICHOLOmer, RESEARCH ENGINEER ZULY Primary Care Unavailable MISC, DR BURCH Attending Unavailable MISC, DR BURCH Admitting Unavailable MISC, DR BURCH Consulting Unavailable AICHOLZ, RESEARCH ENGINEER ZULY Primary Care Unavailable MISC, DR BURCH Attending Unavailable ARCELIA PIZARRO Consulting Unavailable KE BURNHAM Attending Unavailable KE BURNHAM Admitting Unavailable DR MÓNICA JIMENEZ Consulting Unavailable AICHHOLZ, RESEARCH ENGINEER ZULY Primary Care Unavailable KE BURNHAM Consulting Unavailable MISC, DR BURCH Consulting Unavailable MISC, DR BURCH Attending Unavailable AICHOLZ, RESEARCH ENGINEER ZULY Primary Care Unavailable MISC, DR BURCH Admitting Unavailable MISC, DR BURCH Consulting Unavailable MISC, DR BURCH Attending Unavailable AICHHOLZ, RESEARCH ENGINEER ZULY Primary Care Unavailable MISC, DOCTOR Admitting Unavailable MISC, DR DOCTOR Consulting Unavailable AICHHOLZ, RESEARCH ENGINEER ZULY Primary Care Unavailable MISC, DOCTOR Admitting Unavailable MISC, DR DOCTOR Attending Unavailable MELINDA, DR GEORGE Munoz Consulting Unavailable MELINDA, DR GEORGE Munoz Attending Unavailable AICHHOLZ, RESEARCH ENGINEER ZULY Primary Care Unavailable MELINDA, DR GEORGE Munoz Admitting Unavailable NAUN ., KE Consulting Unavailable MIRANDA, LYNDSAY Consulting Unavailable MELINDA, DR GEORGE Munoz Consulting Unavailable NAUN ., KE Attending Unavailable NAUN ., KE Admitting Unavailable AICHHOLZ, RESEARCH ENGINEER ZULY Primary Care Unavailable NAUN ., KE Consulting Unavailable GIAN HERRING Consulting Unavailable AICHHOLZ, RESEARCH ENGINEER ZULY Consulting Unavailable AICHHOLZ, RESEARCH ENGINEER ZULY Attending Unavailable AICHHOLZ, RESEARCH ENGINEER ZULY Admitting Unavailable AICHHOLZ, RESEARCH ENGINEER ZULY Primary Care Unavailable MISC, DR DOCTOR Consulting Unavailable MISC, DOCTOR Admitting Unavailable MISC, DR DOCTOR Attending Unavailable AICHHOLZ, RESEARCH ENGINEER ZULY Primary Care Unavailable MISC, DR DOCTOR Consulting Unavailable MISC, DR DOCTOR Attending Unavailable MISC, DR DOCTOR Admitting Unavailable AICHHOLZ, RESEARCH ENGINEER ZULY Primary Care Unavailable MISC, DOCTOR Admitting Unavailable MISC, DOCTOR Consulting Unavailable MISC, DR DOCTOR Attending Unavailable AICHHOLZ, RESEARCH ENGINEER ZULY Primary Care Unavailable MISC, DOCTOR Admitting Unavailable MISC, DR DOCTOR Consulting Unavailable AICHHOLZ, [facility] ZULY Primary Care Unavailable MISC, DR DOCTOR Attending Unavailable MISC, DOCTOR Admitting Unavailable MISC, DR DOCTOR Consulting Unavailable AICHHOLZ, RESEARCH ENGINEER ZULY Primary Care Unavailable MISC, DR DOCTOR Attending Unavailable AICHOLZ, RESEARCH ENGINEER ZULY Consulting Unavailable AICHHOLZ, RESEARCH ENGINEER ZULY Attending Unavailable AICHHOLZ, RESEARCH ENGINEER ZULY Admitting Unavailable AICHHOLZ, RESEARCH ENGINEER ZULY Primary Care Unavailable DR MÓNICA JIMENEZ Consulting Unavailable Aicholz [facility] Zuly Primary Care Provider [phone] Evan White DO Unavailable [phone] [facility] Primary Care Provider Tran White DOs A Unavailable Momo Verdugo MD Primary Care Provider Aichholz RESEARCH ENGINEER, Zuly Primary Care Provider MIGUEL CARDONA Attending Unavailable AICHHOLZ, ZULY J Primary Care Physician [phone] Momo Verdugo MD Primary Care Provider Aichholz [employer], Zuly Unavailable Kasandra Thomas DO Unavailable AICHHOLZ, [...] ZULY Attending Unavailable AICHHOLZ, ZULY Attending Unavailable Steph Almodovar Attending Unavailable AICHHOLZ, ZULY J Referring Unavailable Clementina Montesinos Attending Unavailable Aichholz, Zuly J Primary Care Provider [phone] Briseida LUZ, Yoselyn Attending Provider Aichholz, Zuly J Primary Care Unavailable Asaad, Imad Attending Unavailable Asaad, Imad Admitting Unavailable KELVIN PACHECO Referring Unavailable CANIDE ALMAGUER Attending Unavailable AICHHOLZ, ZULY Primary Care Unavailable AICHHOLZ, ZULY Primary Care Unavailable DAISHA MAX Attending Unavailable SELF, SELF Referring Unavailable AICHHOLZ, ZLUY Primary Care Unavailable SELF, SELF Referring Unavailable REBECA GUTIERREZ Attending Unavailable AICHHOLZ, ZULY Primary Care Unavailable HAKEEM ALAMO Attending Unavailable SELF, SELF Referring Unavailable KEVIN PRINCE Admitting Unavailable AICHHOLZ, ZULY Primary Care Unavailable KELVIN PACHECO Attending Unavailable CONSULT, HEPATOBILIARY Consulting Unavailab le SYSTEM, PROVIDER NOT IN Referring Unavaila CANDIE Gutierrez Attending Unavailable ZULY BRUNO Primary Care Unavailable KELVIN PACHECO Referring Unavailable EVAN WHITE Attending Unavailabl e ZULY BRUNO Primary Care Unavailable SELF, SELF Referring Unavailable Allergies Allergy Classification Reported Allergen(s) Allergy Type Date of Onset Reaction(s) Facility (3 sources) Shellfish; Translations: [SHELLFISH DERIVED] Propensity to adverse reactions (disorder) 8 [facility] Repository (20 sources) Shellfish-Deriv ed Products Propensity to adverse reactions to drug 9 [facility] (4 sources) Shellfish; Translations: [shellfish] Drug allergy (disorder) Anaphylaxis (disorder) [facility] Repository Medications Current Medications Medication Drug Class(es) Dates Sig (Normalized) Sig (Original) allopurinol 100 mg oral tablet (20 sources) Xanthine Oxidase Inhibitor Start: 12-15-2024 take 2 tablets by mouth once daily Allopurinol 100 mg tablet Active 200 MG PO Daily December 15, 2024 12:00am Start: 01-16-2024 End: 01-23-2024 take 200 mg [...] 12-30-2021 take 2 tablets by mo [facility] once daily allopurinol 100 MG tablet Indications: Abnormal blood chemistry take 2 tablets by mouth once daily 180 tablet 3 12/30/2021 Active Start: 01-28-2021 take 2 tablets by mo [facility] once daily allopurinol 100 MG tablet Indications: Abnormal blood chemistry Take 2 tablets by mouth daily. 180 tablet 3 01/28/2021 Active amLODIPine 5 mg oral tablet (20 sources) Dihydropyridine Calcium Channel Melissa Start: 12-15-2024 take 1 tablet by mouth once daily Amlodipine 5 mg tablet Active 5 MG PO Daily December 15, 2024 12:00am Start: 08-12-2024 End: 11-10-2024 take 1 tablet by mouth once daily Amlodipine 5 mg tablet Active 5 MG PO Daily December 15, 2024 12:00am Start: 02-08-2024 [facility] amLOD[facility]ine (Norvasc) 5 MG tablet Indications: Primary hypertension (CMS/HCC) Take 1 tablet (5 mg) by mouth Daily 90 tablet 1 02/08/2024 Active Start: 01-16-2024 End: 01-23-2024 take 5 [...] 1 capsule by mouth once daily b rmekjsk-H-qaznt acid (NEPHROCAPS) 1 MG capsule Take 1 capsule by mouth daily 0 Active aspirin 81 mg delayed release oral tablet (20 sources) Platelet Aggregation Inhibitor, Nonsteroidal Anti-inflammatory Drug Start: 12-15-19 25 Aspirin (Adult Low Dose Aspirin) 81 mg tablet,delayed release (DR/EC) Active 81 MG PO Daily December 15, 2024 12:00am Start: 09-08-2024 take 1 tablet by magy th once daily aspirin 81 mg Oral EC Tab 81 mg = 1 tab(s), Oral, Daily, # 30 tab(s), Refills(s) 0 Start Date: 09/08/24 Status: Ordered Start: 10-08-2020 End: 01-23-2024 aspirin 81 MG Chew Tab chewa ble tablet Chew 1 tablet daily. Last refill from our office. Medication can be purchased over the counter going forward. 30 tablet 10/08/2020 Active Start: 08-04-2018 End: 11-04-2018 take 1 tablet by mouth once daily Aspirin 81 mg Tablet,Delayed Release (Dr/Ec) Discontinued 81 MG PO Daily August 03, 2018 11:00pm November 04, 2018 1:24pm cholecalciferol 1000 unt oral tablet (1 source) [...] or medicament (substance) (1 source) Start: 023 famotidine 20 mg oral tablet (20 sources) Histamine-2 Receptor Antagonist Start: 025 take 1 tablet by mouth twice daily Famotidine (Acid Mold Construction Supervisor (Famotidine)) 20 mg tablet Active 20 MG PO Twice daily December 15, 2024 12:00am Start: 02-08-2024 End: 11-21-2024 take 1 tablet by mouth twice daily Famotidine (Acid Mold Construction Supervisor (Famotidine)) 20 mg tablet Active 20 MG PO Twice daily December 15, 2024 12:00am Start: 01-16-2024 End: 01-23-2024 take 20 mg [...] oral capsule (20 sources) Anti-epileptic Agent Start: 12-15-2024 take 1 capsule by mouth once daily at bedtime Gabapentin 400 mg capsule Active 400 MG PO Daily at bedtime December 15, 2024 12:00am Start: 06-07-2023 End: 09-25-2024 take 1 capsule by mouth once daily at bedtime Gabapentin 400 mg capsule Active 400 MG PO Daily at bedtime December 15, 2024 12:00am Start: 05-15-2022 End: 05-20-2022 take 400 mg [...] and ankle pain. 0 06/12/2020 06/12/2023 Discontinued melatonin 3 mg oral tablet (20 sources) Start: 12-15-2024 take 1 capsule by mouth once daily at bedtime as needed for sleep Melatonin 3 mg capsule Active 3 MG PO Daily at bedtime as needed for sleep December 15, 2024 12:00am Start: 09-08-2024 melatonin [address] 3 mg under the tongue at bedtime 09/08/2024 Active Start: 01-19-2024 End: 01-23-2024 take 6 mg by mouth once daily at bedtime as needed 6 mg, Oral, DAILY AT BEDTIME NEEDED, Starting on Thu01/19/24 at 0016, Until 01/23/24 at 1752, Insomnia Start: 08-28-2023 End: 09-11-2023 take 6 mg by mouth once daily at bedtime as needed 6 mg, Oral, DAILY AT BEDTIME NEEDED, Starting on Thu08/28/23 at 1738, Until Thu09/11/23 at 1645, Insomnia Start: 05-15-2022 End: 11-07-2024 take 3 mg by mouth once daily at bedtime as needed 3 mg, Oral, DAILY AT BEDTIME NEEDED, Starting on 01/16/24 at 0141, Until Thu01/19/24 at 0016, Insomnia Multiple Vitamins-Minerals (THERAPEUTIC MULTIVITAMIN-MINERALS) tablet (6 sources) take 1 tablet by mouth once daily Multiple Vitamins-Minerals (THERAPEUTIC MULTIVITAMIN-MINERALS) tablet Take 1 tablet by mouth daily 0 Active mycophenolic acid 360 mg delayed release oral tablet (20 sources) Antimetabolite Immunosuppressant Star t: 11-30 take 1 tablet by mouth every twelve hours Mycophenolate Sodium 360 mg tablet,delayed release (DR/EC) Active 360 MG PO Every 12 hours December 15, 2024 12:00am Start: 09-08-2024 mycophenolic a ree 360 mg oral enteric coated tablet 720 [...] vomiting. 20 tablet 0 06/14/2020 06/12/2023 Discontinued Start: 04-14-2019 End: 12-16-2024 take 1 tablet by mouth every eight hours as needed for nausea and vomiting Ondansetron 4 mg tablet,disintegrating Active 4 MG PO Q8H as needed for nausea and vomiting December 16, 2024 12:00am take 1 tablet by magy th every eight hours as needed for nausea and vomiting ondansetron (Zofran) 4 MG tablet Take 1 tablet by mouth every 8 (eight) hours if needed for nausea or vomiting Active polyethylene glycol 3350 10856 mg powder for oral solution (20 sources) Osmotic Laxative Start: 12-15-2024 Polyethylene Glycol 3350 (Miralax) 17 gram powder in packet Active 17 GM PO Daily as needed for constipation December 15, 2024 12:00am Start: 09-08-2024 take 1 g by mouth once daily p olyethylene glycol 3350 17 gram packet gm, Oral, [...] polyethylene glycol (MIRALAX ) packet 17 g sertraline 25 mg oral tablet (1 source) Serotonin Reuptake Inhibitor take 1 tablet by mouth once daily sertraline 25 MG tablet Take 25 mg by mouth daily. 0 Active sulfamethoxazole 800 mg / trimethoprim 160 mg oral tablet (20 sources) Dihydrofolate Reductase Inhibitor Antibacterial, Sulfonamide Antimicrobial Start: 09-23-20 End: 08-28-20 take 1 tablet by mouth three times weekly Sulfamethoxazole-T rimethoprim 800-160 mg tablet Active 1 TAB PO 3 Times a week December 15, 2024 12:00am Start: 09-04-2023 End: 09-11-2023 take 1 tablet [...] 800-160 MG per tablet 1 tablet tacrolimus 0.5 mg oral capsule (20 sources) Calcineurin Inhibitor Immunosuppressant Start: 12-15-2024 take 1 capsule by mouth twice daily Tacrolimus 0.5 mg capsule Active 0.5 MG PO Twice daily December 15, 2024 12:00am Start: 11-22-2024 tacrolimus 0.5 mg oral capsule 60 cap(s), 0 Refill(s), Refills(s) 0 Start Date: 11/22/24 Status: Ordered Start: 10-03-2024 take 1 capsule by mo uth once daily in the morning Tacrolimus (PROGRAF) 0.5 MG capsule Take 1 capsule by mouth every morning and take1 capsule by mouth every evening. 60 capsule 5 10/03/2024 Active Start: 10-03-2024 Tacrolimus 0.2 MG Pack Discontinued on 10/03/24 for low Tacrolimus level. Patient started on 0.5mg capsules. 10/03/2024 Active Start: 09-15-2024 Prograf 0.2 MG pack 09/15/2024 Active Start: 09-08-2024 Prograf 0.2 mg oral [...] 12 Each 06/22/2024 07/01/2024 Discontinued (Reorder) Start: 03-24-2024 End: 09-03-2024 Prograf 0.2 MG pack 03/24/20 24 08/23/2024 Discontinued Start: 03-04-2024 End: 06-17-2024 take 1 dose by mouth once Tacrolimus 0.2 MG Pack Mix 1 packet (0.2 mg) as directed and take by mouth every Thursday and Thursday. 8 Each 03/04/2024 06/17/2024 Discontinued Start: 02-19-2024 End: 03-02-2024 [...] needed. Start: 08-20-2022 take 1 capsule by [facility] every twelve hours Tacrolimus (PROGRAF) 0.5 MG capsule Indications: -donor kidney transplant recipient , Liver transplant recipient Take 1 capsule by mouth every 12 hours. 180 capsule 1 08/20/2022 Active Start: 05-15-2022 End: 05-20-2022 take 1 mg by mouth every twelve hours 1 mg, Oral, EVERY 12 HOURS, First dose on 05/15/22 at 2215, Until Discontinued Do not [...] 0.4 mg oral capsule (20 sources) alpha-Adrenergic Melissa Start: 10-03-2024 End: 01-27-2025 take 1 capsule by mouth every twenty-four hours in the evening tamsulosin (Flomax) 0.4 MG 24 hr capsule Indications: Decreased urine stream Take 1 capsule (0.4 mg) by mouth in the evening 90 capsule 1 10/29/2024 01/27/2025 Active Start: 10-03-2024 take 1 capsule by mo uth once daily Tamsulosin HCl 0.4 MG capsule Take 1 capsule by mouth daily. 90 capsule 1 10/03/2024 Active Start: 09-08-2024 End: 11-17-2025 take 1 capsule by mouth twice daily Tamsulosin 0.4 mg capsule Active 0.4 MG PO Twice daily December 15, 2024 12:00am Start: 08-10-2024 End: 10-01-2024 take 1 capsule by mouth every twenty-four hours at bedtime tamsulosin (Flomax) 0.4 MG 24 hr capsule Take 0.4 mg by mouth at bedtime 08/10/2024 10/01/2024 Discontinued (Reorder) Start: 05-09-2024 End: 08-07-2024 take 1 capsule by mouth every twenty-four hours in the morning tamsulosin (Flomax) 0.4 MG 24 hr capsule Indications: Kidney stones Take 1 capsule (0.4 mg) by mouth in the morning. 90 capsule 1 05/09/2024 08/07/2024 Active Start: 11-03-2023 End: 01-23-2024 take 1 [...] oral tablet (20 sources) Loop Diuretic Start: 12-15-2024 take 1 tablet by mouth once daily Torsemide 20 mg tablet Active 20 MG PO Daily December 15, 2024 12:00am Start: 01-22-2024 End: 01-23-2024 take 1 tablet [...] Sig (Original) acetaminophen 325 mg oral tablet (9 sources) Start: 01-16-2024 End: 01-23-2024 take 1 [...] as needed acetaminophen (TYLENOL) tablet 650 mg Start: 08-27-2018 End: 09-27-2018 take 2 tablets by mouth every six hours as needed for fever Acetaminophen 325 mg Tablet Discontinued 650 MG PO Every 6 hours as needed for Fever 0 August 26, 2018 11:00pm September 27, 2018 7:04pm aluminum hydroxide 40 mg/ml / magnesium hydroxide [...] dose on Thu08/28/23 at 2100, Until Discontinued B Complex With C 20-Folic Acid (Nephrocaps) 1 mg Capsule (2 sources) Start: 08-27-2018 End: 09-27-2018 B Complex With C 20-Folic Acid (Nephrocaps) 1 mg Capsule Discontinued 1 MG PO Every morning 0 August 26, 2018 11:00pm September 27, 2018 7:01pm B Complex With C 20-Folic Acid (Nephrocaps) 1 mg capsule (2 sources) Start: 09-27-2018 End: 09-27-2018 B Complex With C 20-Folic Acid (Nephrocaps) 1 mg capsule Discontinued 1 MG PO Daily before lunch September 27, 2018 7:01pm September 27, 2018 7:02pm B Complex With C 20-Folic Acid (Triphrocaps) 1 mg capsule (2 sources) Start: 09-27-2018 End: 12-15-2024 take 1 capsule by mouth once daily before breakfast B Complex With C 20-Folic Acid (Triphrocaps) 1 mg capsule Discontinued 1 CAP PO Daily before breakfast September 26, 2018 11:00pm December 15, 2024 9:21am benzocaine 140 mg/ml / butamben 20 mg/ml / tetracaine 20 mg/ml mucosal spray (1 source) Elizabeth Local Anesthetic, Standardized Chemical Allergen Start: 09-02-2023 End: 09-02-2023 Topical, NEEDED, Starting on Thu09/02/23 at 0807, Until Discontinued, Intra-op/Intra-Pro c benzocaine 15 mg / menthol 3.6 mg [...] needed. 222 mL 0 06/06/2020 06/12/2023 Discontinued cefdinir 300 mg oral capsule (2 sources) Cephalosporin Antibacterial Start: 08-27-2018 End: 09-27-2018 take 1 capsule by mouth once daily Cefdinir 300 mg capsule Discontinued 300 MG PO Daily August 26, 2018 11:00pm September 27, 2018 7:07pm give after dialysis on dialysis days. cefTRIAXone 2000 mg injection (2 sources) Cephalosporin [...] itraconazole Fax results to: Dr. White - [phone] Transplant [facility] - [phone] Each 09/10/2023 01/19/2024 Discontinued (Medication Reconciliation (suppress cancel msg)) Start: 09-10-2023 CUSTOM MEDICAT ION Labs to be obtained: 1- Tacrolimus level, trough - collect twice weekly until 09/24/23, then weekly until 10/08/23, them once every two weeks there after. 2- Itraconazole level - obtain once between 09/14-09/18. 3- Chem 6 - Obtain weekly while on itraconazole Fax results to: Dr. Cindy Moran [phone] [facility] - [phone] Each 0 09/10/2023 Active Diatrizoate (1 [...] 2 hours after administration. Start: 09-10-2023 End: 11-07-2024 take 10 mL by mouth in the morning itraconazole (Sporanox) 10 MG/ML solution Take 10 mL by mouth in the morning and 10 mL before bedtime. 09/10/2023 11/07/2024 Discontinued (Therapy completed) Start: 09-10-2023 End: 10-08-2023 take 20 mL [...] before and 2 hours after administration. lactulose 667 mg/ml oral solution (20 sources) Osmotic Laxative Start: 01-18-2020 End: 12-15-2024 take 1 mL by mouth four times daily Lactulose 10 gram/15 mL solution Discontinued 60 ML PO Four times daily January 18, 2020 3:59pm December 15, 2024 9:16am Take at 7AM, 3PM, and 11PM Start: 08-04-2018 End: 01-18-2020 take 60 g by mouth three times daily Lactulose 10 gram/15 mL Solution Discontinued 60 GM PO Three times daily 0 September 29, 2018 1:13pm January 18, 2020 3:59pm Take at 7AM, 3PM, and 11PM take 20 g by mouth t hree times daily lactulose (CEPHULAC) 20 g packet Take 20 g by mouth 3 times daily 0 Active 10 ml lidocaine hydrochloride 10 mg/ml injection (2 sources) Antiarrhythmic, Amide Local Anesthetic Start: 09-02-2023 End: 09-02-2023 Infiltration, NEEDED, Starting on Thu09/02/23 at 0831, Until Discontinued, Intra-op/Intra-Proc Start: 09-02-2023 End: 09-02-2023 Topical, NEEDED, Starting on Thu09/02/23 at 0828, Until Discontinued, Intra-op/Intra-Proc losartan potassium 50 mg ora l tablet (20 sources) Angiotensin 2 Receptor Melissa Start: 02-05-2023 End: 09-10-2023 Start: 01-05-2023 take [...] daily. 20 tablet 0 05/20/2022 01/16/2023 Discontinued End: 08-23-2024 take 2 tablets by mouth in the morning magnesium oxide (Mag-Ox) 400 MG tablet Take 2 tablets by mouth in the morning. 08/23/2024 Discontinued take 1 tablet by magy th [...] over 4 Hours, ONCE, 1 dose, On Thu09/05/23 at 0800 Start: 05-18-2022 End: 05-20-2022 Magnesium Sulfate 4 g in joreg rile water 50 ml premix IVPB 2 ml midazolam 1 mg/ml injection (2 sources) Benzodiazepine Start: 09-02-2023 End: 09-03-2023 Intravenous, NEEDED, Starting on Thu09/02/23 at 0818, Until Discontinued, Intra-op/Intra-Proc midodrine hydrochloride 10 mg oral tablet (20 sources) alpha-Adrenergic Agonist Start: 06-09-2018 End: 08-27-2018 take 1 tablet by mouth three times daily as needed Midodrine 10 mg tablet Discontinued 10 MG PO Three times daily as needed for hypotension August 03, 2018 11:00pm August 27, 2018 10:05am take 2 tablets by mo ut three times daily as needed midodrine (PROAMATINE) 5 MG tablet Take 10 mg by mouth 3 times daily Prn with dialysis 0 Active take 2 tablets by mo uth once daily as needed midodrine 5 MG Tab tablet Take 10 mg by mouth daily as needed. Iv durning Dialysis Active mineral oil 0.15 mg/mg / petrolatum 0.83 [...] needed oxyCODONE HCl (ROXICODONE) tablet 10 mg pantoprazole 40 mg delayed release oral tablet (6 sources) Proton Pump Inhibitor Start: 01-18-2020 End: 12-15-2024 take 1 tablet by mouth once daily Pantoprazole (Protonix) 40 mg tablet,delayed release (DR/EC) Discontinued 40 MG PO Daily January 18, 2020 12:00am December 15, 2024 9:16am Start: 04-14-2019 End: 12-15-2024 take 1 tablet by mouth twice daily Pantoprazole (Protonix) 20 mg Tablet,Delayed Release (Dr/Ec) Discontinued 20 MG PO Twice daily April 13, 2019 11:00pm December 15, 2024 9:16am Start: 11-04-2018 End: 12-16-2018 take 1 tablet by mouth once daily Pantoprazole 40 mg tablet,delayed release (DR/EC) Discontinued 40 MG PO Daily 42 42 November 04, 2018 12:00am December 15, 2018 12:00am December 16, 2018 12:01am potassium bicarbonate 20 meq effervescent oral tablet [...] chloride 20 meq extended release oral tablet (17 sources) Start: 09-10-2023 End: 09-10-2023 Start: 09-09-2023 [...] chloride (K-DUR) t ablet ER 20 mEq Start: 08-04-2018 End: 12-15-2024 take 5 capsules by mouth once daily Potassium Chloride 8 mEq Capsule, Extended Release Discontinued 40 MEQ PO Daily August 03, 2018 11:00pm December 15, 2024 9:16am take 40 mEq by mouth once daily [...] a rate of 5mg/min. Maximum of 40mg/day. rifAXIMin 550 mg oral tablet (14 sources) Rifamycin Antibacterial Start: 08-27-2018 End: 12-15-2024 take 1 tablet by mouth twice daily Rifaximin (Xifaxan) 550 mg Tablet Discontinued 550 MG PO Twice daily 0 August 26, 2018 11:00pm December 15, 2024 9:16am RifAXIMin (XIFAX AN PO) Take by mouth. Active sennosides, mcc 8.6 mg oral tablet (1 source) Start: 05-16-2022 End: 05-20-2022 senna (SENOKOT) tablet 8.6 mg sevelamer hydrochloride 800 mg oral tablet (20 sources) Phosphate Binder Start: 08-04-2018 End: 12-15-2024 take 2 tablets by mouth three times daily at mealtime Sevelamer Hcl 800 mg Tablet Discontinued 1600 MG PO THREE TIMES DAILY WITH MEALS August 03, 2018 11:00pm December 15, 2024 9:21am Start: 07-17-2018 take 1 tablet by magy three times daily at mealtime sevelamer 800 MG Tab tablet Take 800 mg by mouth 3 times daily with meals. 0 07/17/2018 Active take 2 tablets by mo [facility] three times daily at mealtime sevelamer (RENVELA) 800 MG tablet Take 2 tablets by mouth 3 times daily (with meals) 0 Active Sod Picosulf-Mag Ox-Citric Ac (2 sources) Start: 12-15-2024 End: 12-26-2024 take 1 dose by mouth once daily Sod Picosulf-Mag Ox-Citric Ac (Clenpiq) 10 mg-3.5 gram- 12 gram/175 mL solution Discontinued 175 ML PO Daily 350 0 December 15, 2024 12:00am December 26, 2024 6:57am Take first dose at 3pm evening before colonoscopy; second dose at 9 pm night before colonoscopy Start: 12-15-2024 take 1 dose by mouth once daily Sod Picosulf-Mag Ox-Citric Ac (Clenpiq) 10 mg-3.5 gram- 12 gram/175 mL solution Active 175 ML PO Daily 350 0 December 15, 2024 12:00am Take first dose at 3pm evening before colonoscopy; second dose at 9 pm night before colonoscopy 1000 ml sodium chloride 9 mg/ml injection [...] chloride 0.9% IV solu tion 250 mL sucralfate 1000 mg oral tablet (2 sources) Aluminum Complex Start: 01-18-2020 End: 12-15-2024 take 1 tablet by mouth every six hours Sucralfate (Carafate) 1 gram tablet Discontinued 1 GM PO Q6H 56 January 18, 2020 12:00am December 15, 2024 9:21am tadalafil 10 mg oral tablet (1 source) Phosphodiesterase 5 Inhibitor Start: 11-22-2024 take 1 tablet by mouth every hour, then take 2 tablets by mouth every twenty-four hours Cialis 10 mg Tab 10 mg = 1 tab(s), Oral, As Directed, take 1 tab at least 1 hr prior to intercourse, do not exceed 20 mg (2 tab) in 24 hrs, # 30 tab(s), Refills(s) 5, Pharmacy: [id number], 170, cm, 11/22/24 9:39:00 EST, Height/Length Dosing, 90, kg, 11/22/24 9:39:00 EST, Weight Dosing Start Date: 11/22/24 Status: Ordered (2 sources) Start: 09-12-2023 End: 09-11-2023 0.25 mg, Oral, EVERY 48 HOURS, First [...] Problem Classification Problem Date Documented Date Episodic/Chronic Abdominal pain (20 sources) Generalized abdominal pain; Translations: [Generalized abdominal pain] Onset: 3 11-03-2023 Episodic Acute and unspecified renal failure (1 source) Chronic renal failure Onset: 9 11-22-2024 Chronic Anxiety disorders (20 sources) Generalized anxiety disorder; Translations: [Generalized anxiety disorder] Onset: 3 11-03-2023 Chronic Chronic kidney disease (20 sources) End stage renal failure on dialysis; Translations: [End-stage renal disease] Onset: 8 06-22-2018 Chronic Comment on above: Outside Source Comme nt: Overview: Added automatically from request for surgery [id number] Coagulation and hemorrhagic disorders (4 sources) Hypercoagulability state; Translations: [Other primary thrombophilia] 08-21-2018 Chronic Congestive heart failure; nonhypertensive (20 sources) Acute diastolic heart failure; Translations: [Acute diastolic (congestive) heart failure] Onset: 4 01-20-2024 Chronic Coronary atherosclerosis and other heart disease (20 sources) Coronary arteriosclerosis; Translations: [Atherosclerotic heart disease of chilkoot coronary artery without angina pectoris] Onset: 3 04-22-2020 Chronic Deficiency and other anemia (2 sources) Anemia due to blood loss; Translations: [Iron deficiency anemia secondary to blood loss (chronic)] 11-03-2018 Chronic Disorders of lipid metabolism (20 sources) Hyperlipidemia, unspecified; Translations: [Mixed hyperlipidemia] Onset: 3 Chronic Esophageal disorders (20 sources) Gastroesophageal reflux disease; Translations: [Gastro-esophageal reflux disease without esophagitis] Onset: 3 11-03-2023 Chronic Essential hypertension (20 sources) Benign essential hypertension; Translations: [Essential (primary) hypertension] Onset: 2 04-22-2020 Chronic Fluid and electrolyte disorders (2 sources) Hypokalemia; Translations: [Hypokalemia] 09-28-2018 Episodic Genitourinary symptoms and ill-defined conditions (1 source) Finding of urological device; Translations: [Encounter for attention to other artificial openings of urinary tract] Chronic Headache; including migraine (1 source) Headache; including migraine; Translations: [HEADACHE UNSPECIFIED] Onset: 2 Hyperplasia of prostate (8 sources) Benign prostatic hypertrophy with outflow obstruction; Translations: [Benign prostatic hyperplasia with lower urinary tract symptoms] Onset: 2 Chronic Hypertension with complications and secondary hypertension (1 source) Renal hypertension; Translations: [Hypertension secondary to other renal disorders] 08-28-2023 Chronic Immunity disorders (20 sources) Immunosuppression; Translations: [Immunodeficiency, unspecified] Onset: 2 Chronic Nutritional deficiencies (2 sources) Moderate protein energy malnutrition; Translations: [Moderate protein-calorie malnutrition] 08-04-2018 Chronic Osteoporosis (13 sources) Osteoporosis; Translations: [Other osteoporosis without current pathological fracture] Onset: 4 09-08-2024 Chronic Other aftercare (3 sources) Transplant follow-up; Translations: [Encounter for aftercare following other organ transplant] Chronic Other aftercare (1 source) Encounter for aftercare following other organ transplant; Translations: [ENC [facility] OT ORGN TRANSPL] Onset: 3 Chronic Other aftercare (1 source) Follow-up status; Translations: [Encounter for follow-up examination after completed treatment for conditions other than malignant neoplasm] Episodic Other aftercare (3 sources) Taking high risk medication; Translations: [Other prison (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] Episodic Other aftercare (1 source) Patient encounter status; Translations: [Encounter for therapeutic drug level monitoring] 06-17-2024 Episodic Other and ill-defined heart disease (20 sources) Dysfunction of papillary muscle; Translations: [Other ill-defined heart diseases] Onset: 3 11-03-2023 Chronic Other and ill-defined heart disease (18 sources) Diastolic dysfunction; Translations: [Other ill-defined heart diseases] Onset: 4 02-11-2024 Chronic Other diseases of kidney and ureters (2 sources) Secondary hyperparathyroidism; Translations: [Secondary hyperparathyroidism of renal origin] 11-03-2018 Chronic Other diseases of kidney and ureters (4 sources) Hydronephrosis; Translations: [Hydronephrosis with ureteral stricture, not elsewhere classified] Episodic Other diseases of kidney and ureters (1 source) Urinary tract obstruction; Translations: [Other obstructive and reflux uropathy] Onset: 4 Episodic Other gastrointestinal disorders (2 sources) Irritable bowel syndrome characterized by constipation; Translations: [Irritable bowel syndrome with constipation] 12-15-2024 Chronic Other gastrointestinal disorders (2 sources) Irritable bowel syndrome with constipation; Translations: [Irritable bowel syndrome] 12-15-2024 Chronic Other liver diseases (20 sources) Cirrhosis of liver; Translations: [Unspecified cirrhosis of liver] Onset: 4 02-11-2024 Chronic Other liver diseases (1 source) Cirrhosis and chronic liver disease; Translations: [Unspecified cirrhosis of liver] Onset: 0 04-12-2020 Chronic Other liver diseases (20 sources) Chronic liver disease; Translations: [Unspecified cirrhosis of liver] Onset: 8 04-12-2020 Chronic Comment on above: Outside Source Comme nt: Overview: Added automatically from request for surgery [id number] Other liver diseases (3 sources) Liver transplant status; Translations: [LIVER TRANSPLANT STATUS] Onset: 3 Chronic Other liver diseases (1 source) Lesion of liver; Translations: [Liver disease, unspecified] 06-17-2024 Chronic Other liver diseases (20 sources) Portal hypertension; Translations: [Portal hypertension] Onset: 4 02-11-2024 Chronic Other liver diseases (2 sources) Hepatorenal syndrome; Translations: [Hepatorenal syndrome] 09-27-2018 Chronic Other liver diseases (2 sources) Liver disease, unspecified; Translations: [Liver disease, unspecified] Onset: 4 Chronic Other liver diseases (20 sources) Hepatic encephalopathy; Translations: [Hepatic failure, unspecified without coma] Onset: 8 10-19-2018 Episodic Other lower respiratory disease (1 source) Hypoxia; Translations: [Hypoxemia] 09-10-2023 Episodic Other male genital disorders (1 source) Male erectile dysfunction, unspecified; Translations: [Erectile dysfunction] Onset: 4 Chronic Other nervous system disorders (20 sources) Peripheral nerve disease ; Translations: [Polyneuropathy, unspecified] Onset: 4 12-03-2023 Chronic Other nutritional; endocrine; and metabolic disorders (20 sources) Obese class I; Translations: [Obesity, unspecified] Onset: 0 04-09-2020 Chronic Other nutritional; endocrine; and metabolic disorders (1 source) Obesity; Translations: [Obesity, unspecified] Onset: 3 11-03-2023 Chronic Other nutritional; endocrine; and metabolic disorders (20 sources) Body mass index 30+ - obesity; Translations: [Obesity, unspecified] Onset: 3 01-06-2024 Chronic Other nutritional; endocrine; and metabolic disorders (2 sources) Hyperammonemia; Translations: [Disorder of urea cycle metabolism, unspecified] 04-14-2019 Chronic Other screening for suspected conditions (not mental disorders or infectious disease) (1 source) CT of chest abnormal; Translations: [Abnormal findings on diagnostic imaging of other specified body structures] 09-02-2023 Chronic Peripheral and visceral atherosclerosis (1 source) Atherosclerosis of aorta; Translations: [Atherosclerosis of aorta] 01-06-2024 Chronic Pneumonia (except that caused by tuberculosis or sexually transmitted disease) (2 sources) Pneumonia; Translations: [Pneumonia, unspecified organism] 08-23-2018 Episodic Residual codes; unclassified (20 sources) Awaiting transplantation of liver; Translations: [Awaiting organ transplant status] Onset: 9 04-12-2020 Chronic Residual codes; unclassified (20 sources) Obstructive sleep apnea syndrome; Translations: [Obstructive sleep apnea (adult) (pediatric)] Onset: 3 11-21-2023 Chronic Residual codes; unclassified (20 sources) H/O: tissue/organ recipient; Translations: [Transplanted organ [...] Translations: [Other pericardial effusion (noninflammatory)] Onset: 4 Unclassified (1 source) Patient encounter status 11-22-2024 Past or Other Problems Problem Classification Problem Date Documented Da te Episodic/Chronic Abdominal hernia (18 sources) Umbilical hernia; Translations: [Umbilical hernia without obstruction or gangrene] Onset: 4 02-11-2024 Episodic Acute and unspecified renal failure (20 sources) Acute injury of kidney; Translations: [Acute kidney failure, unspecified] Onset: 2 Resolved: 4 Episodic Alcohol-related disorders (20 sources) Alcoholic cirrhosis; Translations: [Alcoholic cirrhosis of liver without ascites] Onset: 8 Resolved: 4 10-05-2018 Chronic Comment on above: Outside Source Comme nt: Overview: Added automatically from request for surgery [id number] Allergic reactions (18 sources) Eczema; Translations: [Dermatitis, unspecified] Onset: 4 02-25-2024 Episodic Calculus of urinary tract (20 sources) Calculus of ureter; Translations: [Kidney stone] Onset: 2 11-03-2023 Episodic Complication of device; implant or graft (20 sources) Complication of dialysis; Translations: [Unspecified complication [...] Onset: 2 Episodic Deficiency and other anemia (20 sources) Anemia; Translations: [Anemia, unspecified] Onset: 9 11-03-2023 Episodic Diabetes mellitus without complication (20 sources) Hyperglycemia; Translations: [Hyperglycemia, unspecified] Onset: 3 11-03-2023 Episodic Fever of unknown origin (20 sources) Fever; Translations: [Fever, unspecified] Onset: 3 Resolved: 3 08-28-2023 Episodic Gastrointestinal hemorrhage (20 sources) Gastrointestinal hemorrhage; Translations: [Gastrointestinal hemorrhage, unspecified] Onset: 3 Resolved: 4 11-03-2023 Episodic Genitourinary symptoms and ill-defined conditions (20 sources) Retention of urine, unspecified; Translations: [Hematuria, unspecified] Onset: 2 Episodic Malaise and fatigue (18 sources) Asthenia; Translations: [Weakness] Onset: 4 02-18-2024 Episodic Mood disorders (18 sources) Mood disorders Onset: 4 02-11-2024 Mycoses (20 sources) Histoplasmosis; Translations: [Histoplasmosis, unspecified] Onset: 3 09-10-2023 Episodic Nausea and vomiting (20 sources) Nausea and vomiting; Translations: [Nausea with vomiting, unspecified] Onset: 0 05-10-2020 Episodic Other aftercare (1 source) Other prison (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; Translations: [OTH PERSONAL PROPERTY ASSESSOR 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 THERAPY] Onset: 2 Episodic Other aftercare (1 source) 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; Translations: [RETIREMENT CURRENT USE OF ASPIRIN] Onset: 2 Episodic Other circulatory disease (4 sources) Other specified symptoms and signs involving the circulatory and respiratory systems; Translations: [OTH SPEC SX SIGNS INVLV CIRC RS] Onset: 2 Episodic Other circulatory disease (20 sources) Carotid bruit; Translations: [Other specified symptoms [...] URETRL CALCUL OBST] Onset: 2 Episodic Other gastrointestinal disorders (16 sources) Constipation; Translations: [Other constipation] Onset: 4 08-23-2024 Episodic Other liver diseases (20 sources) Hepatic failure; Translations: [Hepatic failure, unspecified without coma] Onset: 0 04-09-2020 Episodic Other lower respiratory disease (20 sources) Dyspnea; Translations: [Shortness of breath] Onset: 4 01-06-2024 Episodic Other lower respiratory disease (1 source) Shortness of breath; Translations: [Shortness of breath] Onset: 4 Episodic Other nervous system disorders (20 sources) Tremor; Translations: [Tremor, unspecified] Onset: 3 11-03-2023 Episodic Other nutritional; endocrine; and metabolic disorders (18 sources) Body mass index 25-29 - overweight; Translations: [Overweight] Onset: 4 04-18-2024 Episodic Other screening for suspected conditions (not mental disorders or infectious disease) (20 sources) Abnormal quantity of physiologic substance; Translations: [Blood chemistry abnormal] Onset: 8 06-22-2018 Episodic Pancreatic disorders (not diabetes) (18 sources) Pancreatitis; Translations: [Acute pancreatitis without necrosis or infection, unspecified] Onset: 4 Resolved: 4 02-11-2024 Episodic Pleurisy; pneumothorax; pulmonary collapse (20 sources) Pleural effusion; Translations: [Pleural effusion, not elsewhere classified] Onset: 4 01-16-2024 Episodic Residual codes; unclassified (1 source) Ill-defined and unknown cause of mortality; Translations: [ILL-DEFINED UNKNOWN CAUSE MORTALITY] Onset: 2 Episodic Residual codes; unclassified (20 sources) Bilateral lower limb edema; Translations: [Localized edema] Onset: 4 01-06-2024 Episodic Residual codes; unclassified (20 sources) Insomnia; Translations: [Insomnia, unspecified] Onset: 4 01-06-2024 Episodic Screening and history of mental health and substance abuse codes (1 source) Personal history of nicotine dependence; Translations: [PERSONAL HISTORY OF NICOTINE DEPEND] Onset: 2 Episodic Unclassified (1 source) Other pericardial effusion (noninflammatory); Translations: [Other pericardial effusion (noninflammatory)] Onset: 4 Results Test Name Value Interpretation Reference Range Facility Ambulatory Visit Summaryon 1 01-23-2024 Ambulatory Visit Summary Ambulatory Visit Summary GEORGE STYLES :1970 Visit Date:08/24/2024 Ambulatory Visit Instructions Your Care Team Primary Care Physician - ZULY BRUNO CNP This Is Your Medications List allopurinol (allopurinol 100 mg Tab) amlodipine (amLODIPine 5 mg Tab) aspirin (aspirin 81 mg Oral EC Tab) famotidine (famotidine 20 mg Tab) gabapentin (gabapentin 400 mg Cap) melatonin (melatonin 3 mg oral disintegrating strip) mycophenolic acid (mycophenolic acid 360 mg oral enteric coated tablet) ondansetron (ondansetron 4 mg Dis Tab) polyethylene glycol 3350 (polyethylene glycol 3350 17 gram packet) sulfamethoxazole-trime thoprim (sulfamethoxazole-trim ethoprim 800 mg-160 mg Tab) tacrolimus (tacrolimus 0.5 mg oral capsule) tadalafil (Cialis 10 mg Tab) tamsulosin (tamsulosin 0.4 mg Cap) torsemide (torsemide 20 mg Tab) Procedures Performed Kidney transplant (2019), Transplantation of liver (2019). Medications What How Much When Instructions Unchanged allopurinol (allopurinol 100 mg Tab) 1 Tablets TAKE 2 TABLETS BY MOUTH DAILY Unchanged amlodipine (amLODIPine 5 mg Tab) 1 Tablets TAKE 1 TABLET BY MOUTH DAILY Unchanged aspirin (aspirin 81 mg Oral EC Tab) 1 Tablets By Mouth Every day Unchanged famotidine (famotidine 20 mg Tab) 1 Tablets TAKE 1 TABLET BY MOUTH TWICE DAILY (IN THE MORNING and BEFORE bedtime) Unchanged gabapentin (gabapentin 400 mg Cap) take 1 capsule by mouth at bedtime Unchanged melatonin (melatonin 3 mg oral disintegrating strip) By Mouth Unchanged mycophenolic acid (mycophenolic acid 360 mg oral enteric coated tablet) 2 Tablets Unchanged ondansetron (ondansetron 4 mg Dis Tab) Take 1 tablet by mouth every 8 hours if needed for nausea or vomiting for up to 10 days Unchanged polyethylene glycol 3350 (polyethylene glycol 3350 17 gram packet) By Mouth Every day Unchanged sulfamethoxazole-trime thoprim (sulfamethoxazole-trim ethoprim 800 mg-160 mg Tab) Unchanged tacrolimus (tacrolimus 0.5 mg oral capsule) 60 cap(s), 0 Refill(s) Unchanged tadalafil (Cialis 10 mg Tab) 1 Tablets By Mouth As Directed take 1 tab at least 1 hr prior to intercourse, do not exceed 20 mg (2 tab) in 24 hrs Unchanged tamsulosin (tamsulosin 0.4 mg Cap) 1 Capsules By Mouth 2 times a day Duration: 90 Days Unchanged torsemide (torsemide 20 mg Tab) 1 Tablets TAKE 1 TABLET BY MOUTH ONCE DAILY Allergies shellfish (Anaphylaxis) Problems Ongoing - Any problem that you are currently receiving treatment for. Acute kidney injury Alcoholic cirrhosis Anemia Benign essential hypertension BPH with urinary obstruction Chronic liver disease Chronic renal failure Coronary arteriosclerosis End-stage renal disease Hepatic encephalopathy Prostate cancer screening Patient Survey You may receive a survey via text or e-mail asking about your office visit. Please share your experience with us by completing your survey. We appreciate your feedback and thank you for choosing us for your care. Normal [facility] Reminderson 11-22-2024 Reminders Reminders From: Paulina Morales To: EU - Administrative; Sent: 11/22/2024 09:52:41 EST Show up: 01/28/2025 09:52:00 EST Subject: Ambulatory Reminder Due Date/Time: 03/09/2025 09:52:00 EDT Reminder/Recall Patient needs scheduled with AG for a 4 month F/U, he schedule is not built yet. Due back in February [address] [facility] Urology Office/Clinic Noteon 11-22-2024 Urology Office/Clinic Note Urology Office/Clinic Note Chief Complaint follow up HPI Staff Pt here for 2-3mo f/u. Flomax 0.4mg increased to BID at last visit. Previous Dx: BPH with obstruction/lower urinary tract symptoms, screening PSA, history of kidney transplant Dysuria: no Incomplete bladder emptying: feels he is emptying better with flomax bid Hematuria: no Frequency: no Urgency: mild Nocturia: 5x Stream: slower stream still however states it has improved, easier to get started Leaking: no Post void dripping: no Wearing pads/ Depends: no Urge incontinence: no Stress incontinence: no Incontinence without Sensory Awareness: no Abdominal pain: no Flank pain: no Sexual complaints: no History of Present Illness I have reviewed and verified the staff HPI to be accurate for this encounter. Portions of this record may have been created with voice recognition artificial intelligence software, specifically [employer], [employer] and or [employer]. Substitutions may have occurred due to the inherent limitations of voice recognition and artificial intelligence software. Review of Systems PHQ Score Initial Depression Screen Score: 0 SCORE Physical Exam Vitals & Measurements HR: 68(Peripheral) BP: 135/95 HT: 67 in HT: 170 cm WT: 90 kg WT: 198.416 lb BMI: 31.14 General: Well developed, well nourished, in no acute distress. Assessment/Plan AG pt 1. BPH with urinary obstruction (N40.1: Benign prostatic hyperplasia with lower urinary tract symptoms) IPSS 23 (16). QoL 3 At prior office visit, patient was to increase tamsulosin dose to 0.4 mg twice daily. He states that he was able to do this for a couple months and was quite satisfied with his urinary symptoms at that time. However, when he got his most recent refill his pharmacy refused to fill it for twice daily dosing. I sent another Rx for twice daily dosing and advised patient to call our office if he has any further issues. He is tolerating this dosing well without significant side effects. We discussed potential for cystoscopy in the future to assess degree of bladder outlet obstruction, evaluate for potential procedures in the future. Patient is not interested in this time, but would like a close follow-up to reassess how he is doing on the twice daily dosing. UA today without blood or infection. PVR today 68 ml -Continue tamsulosin 0.4 mg twice daily -Follow-up 4 months per patient preference Ordered: [id number] Measure Post Void residual urine and/or bladder capacity by US- non-imaging Urnls Dip Stick Auto w/o Microscopy POC 16168 2. Erectile dysfunction (N52.9: Male erectile dysfunction, unspecified) LINDEN 3 Patient states that this has been ongoing for him for several years. Does not attempt any type of activity due to his difficulty achieving erection. He does note that he does wake with partial erections occasionally. States that he was on Cialis in the past which worked well for him, denies any side effects to medication but unsure of dose he was on at that time. We discussed treatment options for ED including oral medication, ICI, penile prosthesis. Patient would like to move forward with trialing oral medication again. Discussed use of Cialis, dosing, side effects. Will send for 10 mg dosing, he knows not to exceed 20 mg in 24 hours. -Start Cialis 10 mg as needed 3. Prostate cancer screening (Z12.5: Encounter for screening for malignant neoplasm of prostate) Will try to locate PSA through his PCP. Patient believes that he had this checked about 6 months ago and it was normal. If unable to locate PSA, will have patient obtain PSA prior to follow-up appointment. 4. History of kidney transplant (Z94.0: Kidney transplant status) 08/29/24 - BUN 18, Cre 1.3, GFR 58 Pt had liver and kidney transplant in 2019 and follows yearly with [facility]. [1] Orders: tadalafil, 10 mg = 1 tab(s), Oral, As Directed, take 1 tab at least 1 hr prior to intercourse, do not exceed 20 mg (2 tab) in 24 hrs, # 30 tab(s), Refills(s) 5, Pharmacy: [facility] #[id number], 170, cm, 11/22/24 9:39:00 EST, Height/Length Dosing, 90, kg, 12... tamsulosin, 0.4 mg = 1 cap(s), Oral, BID, X 30 day(s), # 60 cap(s), Refills(s) 11, Pharmacy: [facility] #[id number], 170, cm, 09/08/24 14:00:00 EDT, Height/Length Dosing, 90, kg, 09/08/24 14:00:00 EDT, Weight Dosing tamsulosin, 0.4 mg = 1 cap(s), Oral, BID, X 90 day(s), # 180 cap(s), Refills(s) 3, Pharmacy: [facility] #72, 170, cm, 09/08/24 14:00:00 EDT, Height/Length Dosing, 90, kg, 09/08/24 14:00:00 EDT, Weight Dosing Follow-up With When Contact Information [employer]ST[employer]O, Clementina Mejias, URL Additional Instructions: 4 mos Patient Education Cancer Screening for Males Erectile Dysfunction Benign Prostatic Hyperplasia Problem List/Past Medical History Ongoing Acute kidney injury Alcoholic cirrhosis Anemia Benign essential hypertension BPH with urinary obstruction Chronic liver disease (more content not included)... Normal [facility] Comment on above: Result Comment: Elec tronically Signed By: JONATHAN Almodovar APRN, Steph Wilson\.br\Date and Time Signed: 11/22/24 09:58 EST ALL CBC WITH AUTO DIFFon BASOPHILS ABSOLUTE AUTO 0 [facility] Basophils/100 WBC (Bld) 0.7 % 0.2 - 2.0 % [facility] Eosinophils/100 WBC (Bld) 2.6 % 0.9 - 7.0 % [facility] Erythrocyte distribution width (RBC) [Ratio] 12.5 % 11.0 - 15.0 % [facility] Hematocrit (Bld) [Volume fraction] 47.5 % 42.0 - 54.0 % [facility] Hemoglobin (Bld) [Mass/Vol] 15.6 g/dL 14.0 - 18.0 g/dL [facility] IMMATURE GRANULOCYTES ABS AUTO 0 [facility] Immature granulocytes/100 WBC (Bld) 0 % 0.0 - 0.5 % [facility] LYMPHOCYTES ABSOLUTE AUTO 1.6 [facility] Lymphocytes/100 WBC (Bld) 36.3 % 20.5 - 60.0 % [facility] MCH (RBC) [Entitic mass] 28.6 pg 25.9 - 34.0 pg [facility] MCHC (RBC) [Mass/Vol] 32.8 g/dL 29.9 - 35.2 g/dL [facility] MCV (RBC) [Entitic vol] 87.2 fL 80.0 - 94.0 fL [facility] MONOCYTES ABSOLUTE AUTO 0.4 [facility] Monocytes/100 WBC (Bld) 9.8 % 1.7 - 12.0 % [facility] NEUTROPHILS ABSOLUTE AUTO 2.2 [facility] Neutrophils/100 WBC (Bld) 50.6 % 43.0 - 75.0 % [facility] Platelet mean volume (Bld) [Entitic vol] 9.5 fL 9.5 - 13.5 [facility]L [facility] PLT 230 [facility] RBC 5.45 [facility] WBC 4.3 [facility] ALL CBC WITH AUTO DIFFon BASOPHILS ABSOLUTE AUTO 0 [facility] Basophils/100 WBC (Bld) 0.5 % 0.2 - 2.0 % [facility] Eosinophils/100 WBC (Bld) 2.6 % 0.9 - 7.0 % [facility] Erythrocyte distribution width (RBC) [Ratio] 12.2 % 11.0 - 15.0 % [facility] Hematocrit (Bld) [Volume fraction] 47.7 % 42.0 - 54.0 % [facility] Hemoglobin (Bld) [Mass/Vol] 15.7 g/dL 14.0 - 18.0 g/dL [facility] IMMATURE GRANULOCYTES ABS AUTO 0.01 [facility] Immature granulocytes/100 WBC (Bld) 0.2 % 0.0 - 0.5 % [facility] Interpretation and review of laboratory results Abnormal [facility] LYMPHOCYTES ABSOLUTE AUTO 1.5 [facility] Lymphocytes/100 WBC (Bld) 37 % 20.5 - 60.0 % [facility] MCH (RBC) [Entitic mass] 28.9 pg 25.9 - 34.0 pg [facility] MCHC (RBC) [Mass/Vol] 32.9 g/dL 29.9 - 35.2 g/dL [facility] MCV (RBC) [Entitic vol] 87.8 fL 80.0 - 94.0 fL [facility] MONOCYTES ABSOLUTE AUTO 0.3 [facility] Monocytes/100 WBC (Bld) 7.7 % 1.7 - 12.0 % [facility] NEUTROPHILS ABSOLUTE AUTO 2.2 [facility] Neutrophils/100 WBC (Bld) 52 % 43.0 - 75.0 % [facility] Platelet mean volume (Bld) [Entitic vol] 9.3 fL Low 9.5 - 13.5 fL [facility] TBH EO # 0.1 [facility]H PLT 211 [facility] TB RBC 5.43 [facility] WBC 4.2 [facility] ALL CBC WITH AUTO DIFFon BASOPHILS ABSOLUTE AUTO 0 [facility] Basophils/100 WBC (Bld) 1 % 0.2 - 2.0 % [facility] Eosinophils/100 WBC (Bld) 2.9 % 0.9 - 7.0 % [facility] Erythrocyte distribution width (RBC) [Ratio] 12.3 % 11.0 - 15.0 % [facility] Hematocrit (Bld) [Volume fraction] 49.9 % 42.0 - 54.0 % [facility] Hemoglobin (Bld) [Mass/Vol] 16.5 g/dL 14.0 - 18.0 g/dL [facility] IMMATURE GRANULOCYTES ABS AUTO 0.01 [facility] Immature granulocytes/100 WBC (Bld) 0.2 % 0.0 - 0.5 % [facility] LYMPHOCYTES ABSOLUTE AUTO 1.3 [facility] Lymphocytes/100 WBC (Bld) 30.6 % 20.5 - 60.0 % [facility] MCH (RBC) [Entitic mass] 29.2 pg 25.9 - 34.0 pg [facility] MCHC (RBC) [Mass/Vol] 33.1 g/dL 29.9 - 35.2 g/dL [facility] MCV (RBC) [Entitic vol] 88.3 fL 80.0 - 94.0 fL [facility] MONOCYTES ABSOLUTE AUTO 0.4 [facility] Monocytes/100 WBC (Bld) 8.8 % 1.7 - 12.0 % [facility] NEUTROPHILS ABSOLUTE AUTO 2.4 [facility] Neutrophils/100 WBC (Bld) 56.5 % 43.0 - 75.0 % [facility] Platelet mean volume (Bld) [Entitic vol] 9.9 fL 9.5 - 13.5 fL [facility] EO # 0.1 [facility] [address] [facility] RBC 5.65 [facility] WBC 4.2 [facility] ALL CBC WITH AUTO DIFFon BASOPHILS ABSOLUTE AUTO 0 [facility] Basophils/100 WBC (Bld) 0.6 % 0.2 - 2.0 % [facility] Eosinophils/100 WBC (Bld) 3.5 % 0.9 - 7.0 % [facility] Erythrocyte distribution width (RBC) [Ratio] 12.3 % 11.0 - 15.0 % [facility] Hematocrit (Bld) [Volume fraction] 47.1 % 42.0 - 54.0 % [facility] Hemoglobin (Bld) [Mass/Vol] 15.4 g/dL 14.0 - 18.0 g/dL [facility] IMMATURE GRANULOCYTES ABS AUTO 0.01 [facility] Immature granulocytes/100 WBC (Bld) 0.2 % 0.0 - 0.5 % [facility] LYMPHOCYTES ABSOLUTE AUTO 1.5 [facility] Lymphocytes/100 WBC (Bld) 31.7 % 20.5 - 60.0 % [facility] MCH (RBC) [Entitic mass] 28.9 pg 25.9 - 34.0 pg [facility] MCHC (RBC) [Mass/Vol] 32.7 g/dL 29.9 - 35.2 g/dL [facility] MCV (RBC) [Entitic vol] 88.4 fL 80.0 - 94.0 fL [facility] MONOCYTES ABSOLUTE AUTO 0.4 [facility] Monocytes/100 WBC (Bld) 8.6 % 1.7 - 12.0 % [facility] NEUTROPHILS ABSOLUTE AUTO 2.7 [facility] Neutrophils/100 WBC (Bld) 55.4 % 43.0 - 75.0 % [facility] Platelet mean volume (Bld) [Entitic vol] 9.7 fL 9.5 - 13.5 [facility]L [facility] PLT 238 [facility] RBC 5.33 [facility] WBC 4.8 [facility] ALL CBC WITH AUTO DIFFon BASOPHILS ABSOLUTE AUTO 0 [facility] Basophils/100 WBC (Bld) 0.6 % 0.2 - 2.0 % [facility] Eosinophils/100 WBC (Bld) 3.2 % 0.9 - 7.0 % [facility] Erythrocyte distribution width (RBC) [Ratio] 12.4 % 11.0 - 15.0 % [facility] Hematocrit (Bld) [Volume fraction] 47 % 42.0 - 54.0 % [facility] Hemoglobin (Bld) [Mass/Vol] 15.8 g/dL 14.0 - 18.0 g/dL [facility] IMMATURE GRANULOCYTES ABS AUTO 0.01 [facility] Immature granulocytes/100 WBC (Bld) 0.2 % 0.0 - 0.5 % [facility] Interpretation and review of laboratory results Abnormal [facility] LYMPHOCYTES ABSOLUTE AUTO 1.1 Low [facility] Lymphocytes/100 WBC (Bld) 22.8 % 20.5 - 60.0 % [facility] MCH (RBC) [Entitic mass] 29.6 pg 25.9 - 34.0 pg [facility] MCHC (RBC) [Mass/Vol] 33.6 g/dL 29.9 - 35.2 g/dL [facility] MCV (RBC) [Entitic vol] 88 fL 80.0 - 94.0 fL [facility] MONOCYTES ABSOLUTE AUTO 0.4 [facility] Monocytes/100 WBC (Bld) 8 % 1.7 - 12.0 % [facility] NEUTROPHILS ABSOLUTE AUTO 3.3 [facility] Neutrophils/100 WBC (Bld) 65.2 % 43.0 - 75.0 % [facility] Platelet mean volume (Bld) [Entitic vol] 9.3 fL Low 9.5 - 13.5 fL [facility] TBH EO # 0.2 [facility] PLT 222 [facility] RBC 5.34 [facility] WBC 5 [facility] ALL CBC WITH AUTO DIFFon BASOPHILS ABSOLUTE AUTO 0 [facility] Basophils/100 WBC (Bld) 0.6 % 0.2 - 2.0 % [facility] Eosinophils/100 WBC (Bld) 2.9 % 0.9 - 7.0 % [facility] Erythrocyte distribution width (RBC) [Ratio] 12.5 % 11.0 - 15.0 % [facility] Hematocrit (Bld) [Volume fraction] 47.1 % 42.0 - 54.0 % [facility] Hemoglobin (Bld) [Mass/Vol] 15.2 g/dL 14.0 - 18.0 g/dL [facility] IMMATURE GRANULOCYTES ABS AUTO 0.01 [facility] Immature granulocytes/100 WBC (Bld) 0.2 % 0.0 - 0.5 % [facility] Interpretation and review of laboratory results Abnormal [facility] LYMPHOCYTES ABSOLUTE AUTO 1.6 [facility] Lymphocytes/100 WBC (Bld) 32.7 % 20.5 - 60.0 % [facility] MCH (RBC) [Entitic mass] 28.5 pg 25.9 - 34.0 pg [facility] MCHC (RBC) [Mass/Vol] 32.3 g/dL 29.9 - 35.2 g/dL [facility] MCV (RBC) [Entitic vol] 88.4 fL 80.0 - 94.0 fL [facility] MONOCYTES ABSOLUTE AUTO 0.4 [facility] Monocytes/100 WBC (Bld) 8.5 % 1.7 - 12.0 % [facility] NEUTROPHILS ABSOLUTE AUTO 2.6 [facility] Neutrophils/100 WBC (Bld) 55.1 % 43.0 - 75.0 % [facility] Platelet mean volume (Bld) [Entitic vol] 9.3 fL Low 9.5 - 13.5 [facility]L [facility] PLT 225 [facility] RBC 5.33 [facility] WBC 4.8 [facility] ALL CBC WITH AUTO DIFFon BASOPHILS ABSOLUTE AUTO 0.0 [facility] Basophils/100 WBC (Bld) 0.6 % 0.2 - 2.0 % [facility] Eosinophils/100 WBC (Bld) 3.2 % 0.9 - 7.0 % [facility] Erythrocyte distribution width (RBC) [Ratio] 12.4 % 11.0 - 15.0 % [facility] Hematocrit (Bld) [Volume fraction] 48.1 % 42.0 - 54.0 % [facility] Hemoglobin (Bld) [Mass/Vol] 15.8 g/dL 14.0 - 18.0 g/dL [facility] IMMATURE GRANULOCYTES ABS AUTO 0.01 [facility] Immature granulocytes/100 WBC (Bld) 0.2 % 0.0 - 0.5 % [facility] LYMPHOCYTES ABSOLUTE AUTO 1.4 [facility] Lymphocytes/100 WBC (Bld) 28.5 % 20.5 - 60.0 % [facility] MCH (RBC) [Entitic mass] 28.8 pg 25.9 - 34.0 pg [facility] MCHC (RBC) [Mass/Vol] 32.8 g/dL 29.9 - 35.2 g/dL [facility] MCV (RBC) [Entitic vol] 87.8 fL 80.0 - 94.0 fL [facility] MONOCYTES ABSOLUTE AUTO 0.4 [facility] Monocytes/100 WBC (Bld) 8.6 % 1.7 - 12.0 % [facility] NEUTROPHILS ABSOLUTE AUTO 2.9 [facility] Neutrophils/100 WBC (Bld) 58.9 % 43.0 - 75.0 % [facility] Platelet mean volume (Bld) [Entitic vol] 9.8 fL 9.5 - 13.5 fL [facility] EO # 0.2 [facility] PLT 240 [facility] RBC 5.48 [facility] WBC 5.0 [facility] ALL CBC WITH AUTO DIFFon BASOPHILS ABSOLUTE AUTO 0.0 [facility] Basophils/100 WBC (Bld) 0.7 % 0.2 - 2.0 % [facility] Eosinophils/100 WBC (Bld) 2.7 % 0.9 - 7.0 % [facility] Erythrocyte distribution width (RBC) [Ratio] 12.4 % 11.0 - 15.0 % [facility] Hematocrit (Bld) [Volume fraction] 47.4 % 42.0 - 54.0 % [facility] Hemoglobin (Bld) [Mass/Vol] 15.6 g/dL 14.0 - 18.0 g/dL [facility] IMMATURE GRANULOCYTES ABS AUTO 0.01 [facility] Immature granulocytes/100 WBC (Bld) 0.2 % 0.0 - 0.5 % [facility] LYMPHOCYTES ABSOLUTE AUTO 1.3 [facility] Lymphocytes/100 WBC (Bld) 29.6 % 20.5 - 60.0 % [facility] MCH (RBC) [Entitic mass] 28.8 pg 25.9 - 34.0 pg [facility] MCHC (RBC) [Mass/Vol] 32.9 g/dL 29.9 - 35.2 g/dL [facility] MCV (RBC) [Entitic vol] 87.5 fL 80.0 - 94.0 fL [facility] MONOCYTES ABSOLUTE AUTO 0.4 [facility] Monocytes/100 WBC (Bld) 8.1 % 1.7 - 12.0 % [facility] NEUTROPHILS ABSOLUTE AUTO 2.6 [facility] Neutrophils/100 WBC (Bld) 58.7 % 43.0 - 75.0 % [facility] Platelet mean volume (Bld) [Entitic vol] 9.9 fL 9.5 - 13.5 fL [facility] TBH EO # 0.1 [facility] PLT 240 [facility] RBC 5.42 [facility] WBC 4.5 [facility] URINE T PROTEIN CREAT RA TIOon 08-15-2024 CREATININE URINE RANDOM 123.63 mg/dL 20.00 - 300.00 mg/dL [facility] Interpretation and review of laboratory results Abnormal [facility] Protein (U) [Mass/Vol] 14.4 mg/dL High NINF - 11.9 mg/dL [facility] PROTEIN CREATININE RATIO URINE 0.12 [facility] CBC WITH AUTO DIFFon BASOPHILS ABSOLUTE AUTO 0.0 [facility] Basophils/100 WBC (Bld) 0.8 % 0.2 - 2.0 % [facility] Eosinophils/100 WBC (Bld) 1.8 % 0.9 - 7.0 % [facility] Erythrocyte distribution width (RBC) [Ratio] 12.2 % 11.0 - 15.0 % [facility] Hematocrit (Bld) [Volume fraction] 47.2 % 42.0 - 54.0 % [facility] Hemoglobin (Bld) [Mass/Vol] 15.7 g/dL 14.0 - 18.0 g/dL [facility] IMMATURE GRANULOCYTES ABS AUTO 0.01 [facility] Immature granulocytes/100 WBC (Bld) 0.2 % 0.0 - 0.5 % [facility] LYMPHOCYTES ABSOLUTE AUTO 1.5 [facility] Lymphocytes/100 WBC (Bld) 29.9 % 20.5 - 60.0 % [facility] MCH (RBC) [Entitic mass] 29.1 pg 25.9 - 34.0 pg [facility] MCHC (RBC) [Mass/Vol] 33.3 g/dL 29.9 - 35.2 g/dL [facility] MCV (RBC) [Entitic vol] 87.4 fL 80.0 - 94.0 fL [facility] MONOCYTES ABSOLUTE AUTO 0.4 [facility] Monocytes/100 WBC (Bld) 8.8 % 1.7 - 12.0 % [facility] NEUTROPHILS ABSOLUTE AUTO 2.9 [facility] Neutrophils/100 WBC (Bld) 58.5 % 43.0 - 75.0 % [facility] Platelet mean volume (Bld) [Entitic vol] 10.0 fL 9.5 - 13.5 fL [facility] TBH EO # 0.1 [facility] PLT 238 [facility] RBC 5.40 [facility] WBC 4.9 [facility] PROTEIN CREAT RA TIOon 08-02-2024 CREATININE URINE RANDOM 134.02 mg/dL 20.00 - 300.00 mg/dL [facility] Interpretation and review of laboratory results Abnormal [facility] Protein (U) [Mass/Vol] 13.8 mg/dL High NINF - 11.9 mg/dL [facility] PROTEIN CREATININE RATIO URINE 0.10 [facility] 36on 06-01-2024 36 Regarding echo performed on 05/18/2024: MD Cinda Batres MA Please tell him the echo was ok and showed a small residual fluid around the heart. This is significant improvement from before. Follow up as planned. Patient informed and he verbalized understanding. [facility] Office Visiton 05-13-2024 Follow-up visit [id number] George Styles 1970 M Date Provider Department Center 05/13/2024 Júnior-MIGUEL CARDONA BESSY Lopez Family History Problem Relation Age of Onset Coronary artery disease Mother Coronary artery disease Father Family Status - Relation Status Age at Mother Father Level of Service:34778 [facility] OFFICE/OUTPATIENT ESTABLISHED LOW MDM 20 MIN Reason for Visit and Comments: Follow-up [444252] - Yearly follow up Normal [facility] B-TYPE NATRIURETIC PEPTIDE ( BRAIN)on 02-26-2024 Interpretation and review of laboratory results Normal [facility] Natriuretic peptide B (Bld) [Mass/Vol] 72 pg/mL 0 - 100 pg/mL [facility] Natriuretic peptide B (Bld) [Mass/Vol] 72 pg/mL Normal 0-100 [place] Comment on above: Performed By: #### C HM7, HFP, MGO #### [facility] (DEFAULT) [address] [place] [address] CHEM 6 (LYTES, BUN CREA)on 0 02-26-2024 Anion gap [Moles/Vol] 13 mmol/L 7 - 17 mmol/L [facility] Chloride [Moles/Vol] 107 mmol/L 98 - 10 8 mmol/L [facility] CO2 [Moles/Vol] 25 mmol/L 21 - 31 mmol/L [facility] Creatinine [Mass/Vol] 1.23 mg/dL 0.70 - 1.30 mg/dL [facility] eGFR, CKD-EPI, Male 70 - PINF [facility] Comment on above: Reported eGFR is bas ed on the CKD-EPI 2020 equation using creatinine, age, and sex. Potassium [Moles/Vol] 4.2 mmol/L 3.5 - 5.0 mmol/L [facility] Sodium [Moles/Vol] 141 mmol/L 135 - 145 mmol/L [facility] Urea nitrogen [Mass/Vol] 17 mg/dL 7 - 25 mg/dL [facility] Urea nitrogen/Creatinine [Mass ratio] 14 mg/mg [facility] Anion gap [Moles/Vol] 13 mmol/L Normal 7-17 [facility] Comment on above: Performed By: #### P TPTT #### [facility] (DEFAULT) [address] [place] [address] Chloride [Moles/Vol] 107 mmol/L Normal 98-108 [place] Comment on above: Performed By: #### P TPTT #### [facility] (DEFAULT) [address] [place] [address] CO2 [Moles/Vol] 25 mmol/L Normal 21-31 [facility] Comment on above: Performed By: #### P TPTT #### [facility] (DEFAULT) [address] [place] [address] Creatinine [Mass/Vol] 1.23 mg/dL Normal 0.70-1.30 [facility] Comment on above: Performed By: #### P TPTT #### [facility] (DEFAULT) [address] [place] [address] GFR/1.73 sq M.predicted among non-blacks MDRD (S/P/Bld) [Vol rate/Area] 70 mL/min/{1.73_m2} Normal >=60 [place] Comment on above: Result Comment: Repo rted eGFR is based on the CKD-EPI 2020 equation using creatinine, age, and sex. Performed By: #### P TPTT #### [facility] (DEFAULT) [address] [place] [address] Potassium [Moles/Vol] 4.2 mmol/L Normal 3.5-5.0 [facility] Comment on above: Performed By: #### P TPTT #### [facility] (DEFAULT) [address] [place] [address] Sodium [Moles/Vol] 141 mmol/L Normal 135-145 [facility] Comment on above: Performed By: #### P TPTT #### [facility] (DEFAULT) [address] [place] [address] Urea nitrogen [Mass/Vol] 17 mg/dL Normal 7-25 [place] Comment on above: Performed By: #### P TPTT #### [facility] (DEFAULT) [address] [place] [address] Urea nitrogen/Creatinine [Mass ratio] 14 mg/mg Normal [place] Comment on above: Performed By: #### P TPTT #### [facility] (DEFAULT) [address] [place] [address] CBC,PLATELETSon 01-23-2024 Erythrocyte distribution width (RBC) [Ratio] 14.2 % 10.9 - 14.3 % [facility] Hematocrit (Bld) [Volume fraction] 37.0 % Low 39.6 - 48.8 % [facility] Hemoglobin (Bld) [Mass/Vol] 12.0 g/dL Low 13.4 - 16.8 g/dL [facility] Interpretation and review of laboratory results Abnormal [facility] MCH (RBC) [Entitic mass] 28.6 pg 26.1 - 33.3 pg [facility] MCHC (RBC) [Mass/Vol] 32.4 g/dL 31.9 - 36.5 g/dL [facility] MCV (RBC) [Entitic vol] 88.1 fL 79.0 - 94.5 fL [facility] Platelet mean volume (Bld) [Entitic vol] 10.4 fL 8.7 - 12.3 fL [facility] Platelets (Bld) [#/Vol] 170 10*3/uL 146 - 337 K/uL [facility] RBC (Bld) [#/Vol] 4.20 10*6/uL Low [facility] WBC (Bld) [#/Vol] 3.70 10*3/uL Low 3.73 - 10. 10 K/uL [facility] Hematocrit (Bld) [Volume fraction] 37.0 % Low 39.6-48.8 [place] Comment on above: Performed By: #### P TPTT #### [facility] (DEFAULT) [address] [place] [address] Hemoglobin (Bld) [Mass/Vol] 12.0 g/dL Low 13.4-16.8 [place] Comment on above: Performed By: #### P TPTT #### [facility] (DEFAULT) [address] [place] [address] MCV (RBC) [Entitic vol] 88.1 fL Normal 79.0-94.5 [place] Comment on above: Performed By: #### P TPTT #### [facility] (DEFAULT) [address] [place] [address]35[address] Mean Cell Hgb 28.6 pg Normal 26.1-33.3 [place] Comment on above: Performed By: #### P TPTT #### [facility] (DEFAULT) [address] [place] [address] Mean Cell Hgb Conc 32.4 g/dL Normal 31.9-36.5 [facility] Comment on above: Performed By: #### P TPTT #### [facility] (DEFAULT) [address] [place] [address]896 Platelet mean volume (Bld) [Entitic vol] 10.4 fL Normal 8.7-12.3 [place] Comment on above: Performed By: #### P TPTT #### [facility] (DEFAULT) [address] [address] Platelets (Bld) [#/Vol] 170 10*3/uL Normal 146-337 [place] Comment on above: Performed By: #### P TPTT #### [facility] (DEFAULT) [address] [place] [address] RBC (Bld) [#/Vol] 4.20 10*6/uL Low 4.38-5.83 [place] Comment on above: Performed By: #### P TPTT #### [facility] (DEFAULT) [address] [address] RBC Distribution 14.2 % Normal 10.9-14.3 [facility] Comment on above: Performed By: #### P TPTT #### [facility] (DEFAULT) [address] [place] [address] WBC (Bld) [#/Vol] 3.70 10*3/uL Low 3.73-10.10 [place] Comment on above: Performed By: #### P TPTT #### [facility] (DEFAULT) [address] [place] [address] CHEM 7 (LYTES,BUN,CREA,GLUC) on 01-23-2024 Anion gap [Moles/Vol] 14 mmol/L 7 - 17 mmol/L [facility] Chloride [Moles/Vol] 105 mmol/L 98 - 10 8 mmol/L [facility] CO2 [Moles/Vol] 25 mmol/L 21 - 31 mmol/L [facility] Creatinine [Mass/Vol] 1.32 mg/dL High 0.70 - 1.30 mg/dL [facility] eGFR, CKD-EPI, Male 65 - PINF [facility] Comment on above: Reported eGFR is bas ed on the CKD-EPI 2020 equation using creatinine, age, and sex. Glucose [Mass/Vol] 94 mg/dL 70 - 99 mg/dL [facility] Osmolality Calc [Osmolality] 296 [facility] Potassium [Moles/Vol] 3.8 mmol/L 3.5 - 5.0 mmol/L [facility] Sodium [Moles/Vol] 140 mmol/L 135 - 145 mmol/L [facility] Urea nitrogen [Mass/Vol] 23 mg/dL 7 - 25 mg/dL [facility] Urea nitrogen/Creatinine [Mass ratio] 17 mg/mg [facility] Anion gap [Moles/Vol] 14 mmol/L Normal 7-17 [facility] Comment on above: Performed By: #### C HM7, HFP, MGO #### [facility] (DEFAULT) [address] [place] [address] Chloride [Moles/Vol] 105 mmol/L Normal 98-108 [place] Comment on above: Performed By: #### C HM7, HFP, MGO #### [facility] (DEFAULT) [address] [place] [address] CO2 [Moles/Vol] 25 mmol/L Normal 21-31 [facility] Comment on above: Performed By: #### C TAVO MEDLEY, MGO #### [facility] (DEFAULT) [address] [place] [address] Creatinine [Mass/Vol] 1.32 mg/dL High 0.70-1.30 [facility] Comment on above: Performed By: #### TAVO GONG, MGO #### [facility] (DEFAULT) [address] [place] [address] GFR/1.73 sq M.predicted among non-blacks MDRD (S/P/Bld) [Vol rate/Area] 65 mL/min/{1.73_m2} Normal >=60 [place] Comment on above: Result Comment: Repo rted eGFR is based on the CKD-EPI 2020 equation using creatinine, age, and sex. Performed By: #### TAVO GONG, MGO #### [facility] (DEFAULT) [address] [place] [address] Glucose [Mass/Vol] 94 mg/dL Normal 70-99 [facility] Comment on above: Performed By: #### TAVO GONG, MGO #### [facility] (DEFAULT) [address] [place] [address] Osmolality [Osmolality] 296 mosm/kg Normal 278-305 [place] Comment on above: Performed By: #### Chinedu MEDELY, TAVO, MGO #### [facility] (DEFAULT) [address] [place] [address] Potassium [Moles/Vol] 3.8 mmol/L Normal 3.5-5.0 [facility] Comment on above: Performed By: #### Chinedu MEDLEY, HFP, MGO #### [facility] (DEFAULT) [address] [place] [address]881 Sodium [Moles/Vol] 140 mmol/L Normal 135-145 [facility] Comment on above: Performed By: #### C HM7, HFP, MGO #### [facility] (DEFAULT) [address] [place] [address] Urea nitrogen [Mass/Vol] 23 mg/dL Normal 7-25 [place] Comment on above: Performed By: #### C HM7, HFP, MGO #### [facility] (DEFAULT) [address] [place] [address] Urea nitrogen/Creatinine [Mass ratio] 17 mg/mg Normal [place] Comment on above: Performed By: #### C HM7, HFP, MGO #### [facility] (DEFAULT) [address] [place] [address] GLUCOSE POCon 01-23-2024 Glucose [Mass/Vol] 88 mg/dL 70 - 99 mg/dL [facility] POC Sample Type CAPBL [facility] Test performed at address of the patient encounter. [facility] Glucose [Mass/Vol] 191 mg/dL High 70 - 99 mg/dL [facility] Interpretation and review of laboratory results Abnormal [facility] POC Sample Type CAPBL [facility] Test performed at address of the patient encounter. [facility] HEPATIC FUNCTION PANELon Albumin [Mass/Vol] 3.9 g/dL 3.5 - 5.0 g/dL [facility] ALP [Catalytic activity/Vol] 83 U/L 32 - 126 U/L [facility] ALT [Catalytic activity/Vol] 9 U/L Low 10 - 52 U/L [facility] AST [Catalytic activity/Vol] 17 U/L 10 - 39 U/L [facility] Bilirubin [Mass/Vol] 1.6 mg/dL High NINF - 1.5 mg/dL [facility] Bilirubin.direct [Mass/Vol] 0.4 mg/dL High NINF - 0.3 mg/dL [facility] Protein [Mass/Vol] 6.6 g/dL 6.4 - 8.3 g/dL [facility] Albumin [Mass/Vol] 3.9 g/dL Normal 3.5-5.0 [facility] Comment on above: Performed By: #### C HM7, HFP, MGO #### [facility] (DEFAULT) [address] [place] [address] ALP [Catalytic activity/Vol] 83 U/L Normal 32-126 [place] Comment on above: Performed By: #### C HM7, HFP, MGO #### [facility] (DEFAULT) [address] [place] [address] 11322 ALT [Catalytic activity/Vol] 9 U/L Low 10-52 [place] Comment on above: Performed By: #### C HM7, HFP, MGO #### [facility] (DEFAULT) [address] [place] [address] 95622 AST [Catalytic activity/Vol] 17 U/L Normal 10-39 [place] Comment on above: Performed By: #### C HM7, HFP, MGO #### [facility] (DEFAULT) [address] [place] [address] 28009 Bilirubin [Mass/Vol] 1.6 mg/dL High <1.5 [place] Comment on above: Performed By: #### C HM7, HFP, MGO #### [facility] (DEFAULT) [address] [place] [address] 77572 Bilirubin.indirect [Mass/Vol] 0.4 mg/dL High <0.3 [place] Comment on above: Performed By: #### C HM7, HFP, MGO #### [facility] (DEFAULT) [address] [place] [address]90 Protein [Mass/Vol] 6.6 g/dL Normal 6.4-8.3 [facility] Comment on above: Performed By: #### C HM7, HFP, MGO #### [facility] (DEFAULT) [address] [place] [address] ITRACONAZOLE LEVELon 024 Hydroxyitraconazole [Mass/Vol] 7.6 mcg/mL [facility] Comment on above: REFERENCE VALUE No therapeutic range established; activity and serum concentration are similar to parent drug. ADDITIONAL INFORMATION This test was developed and its performance characteristics determined by [facility] in a manner consistent with CLIA requirements. This test has not been cleared or approved by the U.S. Food and Drug Administration. Test Performed by: [facility] [place] [id number] [place] Operator: Rosendo Bose M.D. Ph.D.; CLIA# [id number] Itraconazole [Mass/Vol] 6.0 mcg/mL [facility] Comment on above: REFERENCE VALUE >0.5 (localized infection), >1.0 (systemic infection) [facility] MAGNESIUMon 01-23-2024 Interpretation and review of laboratory results Normal [facility] Magnesium [Mass/Vol] 1.8 mg/dL 1.6 - 2 .6 mg/dL [facility] Magnesium [Mass/Vol] 1.8 mg/dL Normal 1.6-2.6 [place] Comment on above: Performed By: #### C HM7, [facility], MGO #### [facility] (DEFAULT) [address] [place] [address] No Panel Informationon 01-23 Interpretation and review of laboratory results Abnormal [facility] TACROLIMUS LEVEL, TROUGH (UT E DRUG LEVEL)on 01-23-2024 Interpretation and review of laboratory results Normal [facility] Tacrolimus (Bld) [Mass/Vol] 7.0 ng/mL Bone Marrow Transplant: 4.0-12.0, Therapeutic: 5.0-15.0 [facility] Method performed is a chemiluminescent microparticle immunoasssay on the [employer] i2000. The range is based on experience [...] chemiluminescent microparticle immunoasssay on the [employer] i2000.The range is based on experience at [facility] and users should be aware that target concentrations vary widely depending on concomitant therapy, time post-transplant, and desired degree of immunosuppression. Performed By: #### P TPTT #### [facility] (DEFAULT) [address] [place] [address] CARDIAC RHYTHM (SCANNED)on 0 01-22-2024 [facility] CBC,PLATELETSon 01-22-2024 Erythrocyte distribution width (RBC) [Ratio] 14.1 % 10.9 - 14.3 % [facility] Hematocrit (Bld) [Volume fraction] 41.5 % 39.6 - 48.8 % [facility] Hemoglobin (Bld) [Mass/Vol] 13.3 g/dL Low 13.4 - 16.8 g/dL [facility] Interpretation and review of laboratory results Abnormal [facility] MCH (RBC) [Entitic mass] 27.8 pg 26.1 - 33.3 pg [facility] MCHC (RBC) [Mass/Vol] 32.0 g/dL 31.9 - 36.5 g/dL [facility] MCV (RBC) [Entitic vol] 86.8 fL 79.0 - 94.5 fL [facility] Platelet mean volume (Bld) [Entitic vol] 10.5 fL 8.7 - 12.3 fL [facility] Platelets (Bld) [#/Vol] 186 10*3/uL 146 - 337 K/uL [facility] RBC (Bld) [#/Vol] 4.78 10*6/uL [facility] WBC (Bld) [#/Vol] 3.74 10*3/uL 3.73 - 10. 10 K/uL [facility] Hematocrit (Bld) [Volume fraction] 41.5 % Normal 39.6-48.8 [place] Comment on above: Performed By: #### C HM7, HFP, MGO #### [facility] (DEFAULT) [address] [place] [address]87 Hemoglobin (Bld) [Mass/Vol] 13.3 g/dL Low 13.4-16.8 [place] Comment on above: Performed By: #### C HM7, HFP, MGO #### [facility] (DEFAULT) [address] [place] [address] 48065 MCV (RBC) [Entitic vol] 86.8 fL Normal 79.0-94.5 [place] Comment on above: Performed By: #### C HM7, HFP, MGO #### [facility] (DEFAULT) [address] [place] [address] 74232 Mean Cell Hgb 27.8 pg Normal 26.1-33.3 [place] Comment on above: Performed By: #### C HM7, HFP, MGO #### [facility] (DEFAULT) [address] [place] [address] 53886 Mean Cell Hgb Conc 32.0 g/dL Normal 31.9-36.5 [facility] Comment on above: Performed By: #### C HM7, HFP, MGO #### [facility] (DEFAULT) [address] [place] [address] 84755 Platelet mean volume (Bld) [Entitic vol] 10.5 fL Normal 8.7-12.3 [place] Comment on above: Performed By: #### C HM7, HFP, MGO #### [facility] (DEFAULT) [address] [place] [address] 14852 Platelets (Bld) [#/Vol] 186 10*3/uL Normal 146-337 [place] Comment on above: Performed By: #### Chinedu HM7, HFP, MGO #### [facility] (DEFAULT) [address] [place] [address] 73978 RBC (Bld) [#/Vol] 4.78 10*6/uL Normal 4.38-5.83 [place] Comment on above: Performed By: #### Chinedu HM7, HFP, MGO #### [facility] (DEFAULT) [address] [place] [address] 80031 RBC Distribution 14.1 % Normal 10.9-14.3 [facility] Comment on above: Performed By: #### Chinedu HM7, HFP, MGO #### [facility] (DEFAULT) [address] [place] [address] 74847 WBC (Bld) [#/Vol] 3.74 10*3/uL Normal 3.73-10.10 [place] Comment on above: Performed By: #### Chinedu HM7, HFP, MGO #### [facility] (DEFAULT) [address] [place] [address]7816 CHEM 7 (LYTES,BUN,CREA,GLUC) on 01-22-2024 Anion gap [Moles/Vol] 13 mmol/L 7 - 17 mmol/L [facility] Chloride [Moles/Vol] 109 mmol/L High 98 - 10 8 mmol/L [facility] CO2 [Moles/Vol] 23 mmol/L 21 - 31 mmol/L [facility] Creatinine [Mass/Vol] 1.10 mg/dL 0.70 - 1.30 mg/dL [facility] eGFR, CKD-EPI, Male 81 - PINF [facility] Comment on above: Reported eGFR is bas ed on the CKD-EPI 2020 equation using creatinine, age, and sex. Glucose [Mass/Vol] 84 mg/dL 70 - 99 mg/dL [facility] Interpretation and review of laboratory results Abnormal [facility] Osmolality Calc [Osmolality] 295 [facility] Potassium [Moles/Vol] 4.0 mmol/L 3.5 - 5.0 mmol/L [facility] Sodium [Moles/Vol] 141 mmol/L 135 - 145 mmol/L [facility] Urea nitrogen [Mass/Vol] 16 mg/dL 7 - 25 mg/dL [facility] Urea nitrogen/Creatinine [Mass ratio] 15 mg/mg [facility] Anion gap [Moles/Vol] 13 mmol/L Normal 7-17 [facility] Comment on above: Performed By: #### E BVPCR #### [facility] (DEFAULT) [address] [address] Chloride [Moles/Vol] 109 mmol/L High 98-108 [place] Comment on above: Performed By: #### E BVPCR #### [facility] (DEFAULT) [address] [address] CO2 [Moles/Vol] 23 mmol/L Normal 21-31 [facility] Comment on above: Performed By: #### E BVPCR #### [facility] (DEFAULT) [address] [address] Creatinine [Mass/Vol] 1.10 mg/dL Normal 0.70-1.30 [facility] Comment on above: Performed By: #### E BVPCR #### [facility] (DEFAULT) [address] [address] GFR/1.73 sq M.predicted among non-blacks MDRD (S/P/Bld) [Vol rate/Area] 81 mL/min/{1.73_m2} Normal >=60 [place] Comment on above: Result Comment: Repo rted eGFR is based on the CKD-EPI 2020 equation using creatinine, age, and sex. Performed By: #### E BVPCR #### [facility] (DEFAULT) [address] [place] [address] 45873 Glucose [Mass/Vol] 84 mg/dL Normal 70-99 [facility] Comment on above: Performed By: #### E BVPCR #### [facility] (DEFAULT) [address] [place] [address] 93140 Osmolality [Osmolality] 295 mosm/kg Normal 278-305 [place] Comment on above: Performed By: #### E BVPCR #### [facility] (DEFAULT) [address] [place] [address] 78898 Potassium [Moles/Vol] 4.0 mmol/L Normal 3.5-5.0 [facility] Comment on above: Performed By: #### E BVPCR #### [facility] (DEFAULT) [address] [place] [address] 44688 Sodium [Moles/Vol] 141 mmol/L Normal 135-145 [facility] Comment on above: Performed By: #### E BVPCR #### [facility] (DEFAULT) [address] [place] [address] 11101 Urea nitrogen [Mass/Vol] 16 mg/dL Normal 7-25 [place] Comment on above: Performed By: #### E BVPCR #### [facility] (DEFAULT) [address] [place] [address] 24244 Urea nitrogen/Creatinine [Mass ratio] 15 mg/mg Normal [place] Comment on above: Performed By: #### E BVPCR #### [facility] (DEFAULT) [address] [place] [address]32 MAGNESIUMon 01-22-2024 Interpretation and review of laboratory results Normal [facility] Magnesium [Mass/Vol] 2.0 mg/dL 1.6 - 2 .6 mg/dL [facility] Magnesium [Mass/Vol] 2.0 mg/dL Normal 1.6-2.6 [place] Comment on above: Performed By: #### E BVPCR #### [facility] (DEFAULT) [address] [place] [address] No Panel Informationon 01-22 [facility] PT,INR,PTTon 01-22-2024 aPTT Coag (PPP) [Time] 29.2 s OS [facility] INR Coag (Bld) [Relative time] 1.1 {INR} 0.9 - 1.1 [facility] Interpretation and review of laboratory results Abnormal [facility] PT Coag (PPP) [Time] 14.3 s High [facility] aPTT Coag (Bld) [Time] 29.2 s Normal 24.0-34.3 [facility] Comment on above: Performed By: #### P TPTT #### [facility] (DEFAULT) [address] [place] [address] 26651 INR Coag (PPP) [Relative time] 1.1 {INR} Normal 0.9-1.1 [place] Comment on above: Performed By: #### P TPTT #### [facility] (DEFAULT) [address] [place] [address] 11304 PT Coag (PPP) [Time] 14.3 s High 11.9-14.2 [place] Comment on above: Performed By: #### P TPTT #### [facility] (DEFAULT) [address] [place] [address]134 TACROLIMUS LEVEL, TROUGH (UT E DRUG LEVEL)Ordered By: Sheree Jensen on 01-22-2024 Interpretation and review of laboratory results Normal [facility] Tacrolimus (Bld) [Mass/Vol] 7.9 ng/mL Bone Marrow Transplant: 4.0-12.0, Therapeutic: 5.0-15.0 [facility] Method performed is a chemiluminescent microparticle immunoasssay on the [employer] i2000. The range is based on experience at [facility] and users should be aware that target concentrations vary widely depending on concomitant therapy, time post-transplant, and desired degree of immunosuppression. [facility] TACROLIMUS LEVEL, TROUGH (UT E DRUG LEVEL)on 01-22-2024 Tacrolimus, Trough 7.9 ng/mL Normal [facility] Susana ow Transplant: 4.0-12.0, Therapeutic: 5.0-15.0 [place] Comment on above: Order Comment: Pleas e draw at specified interval PRIOR to dose. Do not hold dose to wait for level. Specimens batched twice per day, (M-F) and once per day weekendsMethod performed is a chemiluminescent microparticle immunoasssay on the [employer] i2000.The range is based on experience at [facility] and users should be aware that target concentrations vary widely depending on concomitant therapy, time post-transplant, and desired degree of immunosuppression. Performed By: #### C HM7, HFP, MGO #### [facility] (DEFAULT) [address] [place] [address] TYPE AND SCREENon 01-22-2024 ABO/RH(D) TYPE Positive [facility] ABO/RH(D) TYPE Positive Normal [place] Comment on above: Performed By: #### X M #### [facility] (DEFAULT) [address] [place], [place] [address] [place] Unspecified body regionOr dered By: Unassigned Pacs on 01-22-2024 [facility] Work Phone: [place] Unspecified body regionon 01-22-2024 Radiology Study observation (narrative) [facility] CBC,PLATELETSon 01-21-2024 Erythrocyte distribution width (RBC) [Ratio] 14.0 % 10.9 - 14.3 % [facility] Hematocrit (Bld) [Volume fraction] 39.4 % Low 39.6 - 48.8 % [facility] Hemoglobin (Bld) [Mass/Vol] 12.7 g/dL Low 13.4 - 16.8 g/dL [facility] Interpretation and review of laboratory results Abnormal [facility] MCH (RBC) [Entitic mass] 28.0 pg 26.1 - 33.3 pg [facility] MCHC (RBC) [Mass/Vol] 32.2 g/dL 31.9 - 36.5 g/dL [facility] MCV (RBC) [Entitic vol] 87.0 fL 79.0 - 94.5 fL [facility] Platelet mean volume (Bld) [Entitic vol] 10.2 fL 8.7 - 12.3 fL [facility] Platelets (Bld) [#/Vol] 157 10*3/uL 146 - 337 K/uL [facility] RBC (Bld) [#/Vol] 4.53 10*6/uL [facility] WBC (Bld) [#/Vol] 3.42 10*3/uL Low 3.73 - 10. 10 K/uL [facility] Hematocrit (Bld) [Volume fraction] 39.4 % Low 39.6-48.8 [place] Comment on above: Performed By: #### C HMJessica, TAVO, MGO #### [facility] (DEFAULT) [address] [address] Hemoglobin (Bld) [Mass/Vol] 12.7 g/dL Low 13.4-16.8 [place] Comment on above: Performed By: #### Chinedu HMJessica, HFP, MGO #### [facility] (DEFAULT) [address] [address] MCV (RBC) [Entitic vol] 87.0 fL Normal 79.0-94.5 [place] Comment on above: Performed By: #### Chinedu HM7, HFP, MGO #### [facility] (DEFAULT) [address] [address] Mean Cell Hgb 28.0 pg Normal 26.1-33.3 [place] Comment on above: Performed By: #### Chinedu HM7, HFP, MGO #### [facility] (DEFAULT) [address] [place] [address] 50762 Mean Cell Hgb Conc 32.2 g/dL Normal 31.9-36.5 [facility] Comment on above: Performed By: #### Chinedu HM7, HFP, MGO #### [facility] (DEFAULT) [address] [place] [address] 63947 Platelet mean volume (Bld) [Entitic vol] 10.2 fL Normal 8.7-12.3 [place] Comment on above: Performed By: #### C HM7, HFP, MGO #### [facility] (DEFAULT) [address] [place] [address] 08279 Platelets (Bld) [#/Vol] 157 10*3/uL Normal 146-337 [place] Comment on above: Performed By: #### Chinedu HM7, HFP, MGO #### [facility] (DEFAULT) [address] [place] [address] 75693 RBC (Bld) [#/Vol] 4.53 10*6/uL Normal 4.38-5.83 [place] Comment on above: Performed By: #### Chinedu HM7, HFP, MGO #### [facility] (DEFAULT) [address] [place] [address] 52858 RBC Distribution 14.0 % Normal 10.9-14.3 [facility] Comment on above: Performed By: #### Chinedu HM7, HFP, MGO #### [facility] (DEFAULT) [address] [place] [address] 02822 WBC (Bld) [#/Vol] 3.42 10*3/uL Low 3.73-10.10 [place] Comment on above: Performed By: #### Chinedu HM7, HFP, MGO #### [facility] (DEFAULT) [address] [place] [address]89 CHEM 7 (LYTES,BUN,CREA,GLUC) on 01-21-2024 Anion gap [Moles/Vol] 12 mmol/L 7 - 17 mmol/L [facility] Chloride [Moles/Vol] 107 mmol/L 98 - 10 8 mmol/L [facility] CO2 [Moles/Vol] 26 mmol/L 21 - 31 mmol/L [facility] Creatinine [Mass/Vol] 1.11 mg/dL 0.70 - 1.30 mg/dL [facility] eGFR, CKD-EPI, Male 80 - PINF [facility] Comment on above: Reported eGFR is bas ed on the CKD-EPI 2020 equation using creatinine, age, and sex. Glucose [Mass/Vol] 93 mg/dL 70 - 99 mg/dL [facility] Osmolality Calc [Osmolality] 295 [facility] Potassium [Moles/Vol] 3.9 mmol/L 3.5 - 5.0 mmol/L [facility] Sodium [Moles/Vol] 141 mmol/L 135 - 145 mmol/L [facility] Urea nitrogen [Mass/Vol] 15 mg/dL 7 - 25 mg/dL [facility] Urea nitrogen/Creatinine [Mass ratio] 14 mg/mg [facility] Anion gap [Moles/Vol] 12 mmol/L Normal 7-17 [facility] Comment on above: Performed By: #### C HM7, HFP, MGO #### [facility] (DEFAULT) [address] [place] [address] Chloride [Moles/Vol] 107 mmol/L Normal 98-108 [place] Comment on above: Performed By: #### C HM7, HFP, MGO #### [facility] (DEFAULT) [address] [place] [address] CO2 [Moles/Vol] 26 mmol/L Normal 21-31 [facility] Comment on above: Performed By: #### C HM7, HFP, MGO #### [facility] (DEFAULT) [address] [place] [address] Creatinine [Mass/Vol] 1.11 mg/dL Normal 0.70-1.30 [facility] Comment on above: Performed By: #### C HM7, HFP, MGO #### [facility] (DEFAULT) [address] [place] [address] 75935 GFR/1.73 sq M.predicted among non-blacks MDRD (S/P/Bld) [Vol rate/Area] 80 mL/min/{1.73_m2} Normal >=60 [place] Comment on above: Result Comment: Repo rted eGFR is based on the CKD-EPI 2020 equation using creatinine, age, and sex. Performed By: #### C HM7, HFP, MGO #### [facility] (DEFAULT) [address] [place] [address] 16485 Glucose [Mass/Vol] 93 mg/dL Normal 70-99 [facility] Comment on above: Performed By: #### C HM7, HFP, MGO #### [facility] (DEFAULT) [address] [place] [address] 12739 Osmolality [Osmolality] 295 mosm/kg Normal 278-305 [place] Comment on above: Performed By: #### C HM7, HFP, MGO #### [facility] (DEFAULT) [address] [place] [address] 03772 Potassium [Moles/Vol] 3.9 mmol/L Normal 3.5-5.0 [facility] Comment on above: Performed By: #### C HM7, HFP, MGO #### [facility] (DEFAULT) [address] [place] [address] 13943 Sodium [Moles/Vol] 141 mmol/L Normal 135-145 [facility] Comment on above: Performed By: #### C HM7, HFP, MGO #### [facility] (DEFAULT) [address] [place] [address] 35058 Urea nitrogen [Mass/Vol] 15 mg/dL Normal 7-25 [place] Comment on above: Performed By: #### C HM7, HFP, MGO #### [facility] (DEFAULT) [address] [place] [address], [place] [address] Urea nitrogen/Creatinine [Mass ratio] 14 mg/mg Normal [place] Comment on above: Performed By: #### C HM7, HFP, MGO #### [facility] (DEFAULT) [address] [place] [address] Cardiac catheterization stud yOrdered By: Kelvin Donohue on 01-21-2024 Body surface area Derived from formula 2.08 m2 [facility] Work Phone: [facility] Work Phone: Cardiac catheterization stud yon [...] with fistula occlusion Kelvin Donohue MD, MPH [employer] Officer of Internal Medicine. Section of Advanced Heart Failure and Transplantation Division of Cardiovascular Diseases [facility] [place] [email or web address] [facility] INVASIVE CARDIOVASCULAR PROC EDUREon 01-21-2024 INVASIVE [...] with fistula occlusion Kelvin Donohue MD, MPH [employer] Officer of Internal Medicine. Section of Advanced Heart Failure and Transplantation Division of Cardiovascular Diseases [facility] [place] [email or web address] Table formatting from the original result was not included. Images from the original result were not included. George Styles Invasive Cardiology Cath Procedure Ordering Physician: KELVIN PACHECO Order #: [id number] Study Date: 01/20/2024 Patient Information Name MRN Description George Styles [id number] 53 y.o. male Location Name Address [place] [id number] Physicians Panel Physicians Referring Physician Case Authorizing [...] in PA pressures with fistula occlusion Kelvin oDnohue MD, MPH [employer] Officer of Internal Medicine. Section of Advanced Heart Failure and Transplantation Division of Cardiovascular Diseases [facility] [place] [email or web address] du Medical History Diagnosis Date Comment Source Acute renal failure CAD (coronary artery disease) Cirrhosis Dialysis patient T, Th, Sa- Started 06/01/2018 End stage renal disease 06/01/2018 Essential hypertension, benign Hepatic encephalopathy History of blood transfusion Liver cirrhosis Procedure The risks and alternatives of the procedure and sedation were explained. Informed consent was obtained. The patient was brought to the slab stripper and placed on the table. The planned puncture sites were prepped and draped in the usual sterile fashion. Fluoro Dose Fluoro Dose: 0.2 Gy-cm^2 Complications Complications documented before study signed (01/21/2024 4:05 PM) No complications were associated with this study. Documented by LU Costello - 01/20/2024 11:09 AM Cardiac Risk Reduction Counselor Attending Physician Statement and Signature I have [...] Blood O (more content not included)... Normal [place] MAGNESIUMon 01-21-2024 Interpretation and review of laboratory results Abnormal [facility] Magnesium [Mass/Vol] 1.5 mg/dL Low 1.6 - 2 .6 mg/dL [facility] Magnesium [Mass/Vol] 1.5 mg/dL Low 1.6-2.6 [place] Comment on above: Performed By: #### C HM7, [facility], MGO #### [facility] (DEFAULT) [address] [place] [address] No Panel Informationon 01-21 [facility] TACROLIMUS LEVEL, TROUGH (UT E DRUG LEVEL)on 01-21-2024 Interpretation and review of laboratory results Normal [facility] Tacrolimus (Bld) [Mass/Vol] 7.2 ng/mL Bone Marrow Transplant: 4.0-12.0, Therapeutic: 5.0-15.0 [facility] Method performed is a chemiluminescent microparticle immunoasssay on the [employer] i2000. The range is based on experience at [facility] and users should be aware [...] chemiluminescent microparticle immunoasssay on the [employer] i2000.The range is based on experience at [facility] and users should be aware that target concentrations vary widely depending on concomitant therapy, time post-transplant, and desired degree of immunosuppression. Performed By: #### C TAVO MEDLEY MGO #### [facility] (DEFAULT) [address] [place] [address] CBC,PLATELETSon 01-20-2024 Erythrocyte distribution width (RBC) [Ratio] 13.8 % 10.9 - 14.3 % [facility] Hematocrit (Bld) [Volume fraction] 38.9 % Low 39.6 - 48.8 % [facility] Hemoglobin (Bld) [Mass/Vol] 12.5 g/dL Low 13.4 - 16.8 g/dL [facility] Interpretation and review of laboratory results Abnormal [facility] MCH (RBC) [Entitic mass] 28.0 pg 26.1 - 33.3 pg [facility] MCHC (RBC) [Mass/Vol] 32.1 g/dL 31.9 - 36.5 g/dL [facility] MCV (RBC) [Entitic vol] 87.2 fL 79.0 - 94.5 fL [facility] Platelet mean volume (Bld) [Entitic vol] 10.2 fL 8.7 - 12.3 fL [facility] Platelets (Bld) [#/Vol] 166 10*3/uL 146 - 337 K/uL [facility] RBC (Bld) [#/Vol] 4.46 10*6/uL [facility] WBC (Bld) [#/Vol] 3.79 10*3/uL 3.73 - 10. 10 K/uL [facility] Hematocrit (Bld) [Volume fraction] 38.9 % Low 39.6-48.8 [place] Comment on above: Performed By: #### C JASMYNE, TAVO, MGO #### [facility] (DEFAULT) [address] [place] [address] 6[address]16 Hemoglobin (Bld) [Mass/Vol] 12.5 g/dL Low 13.4-16.8 [place] Comment on above: Performed By: #### C HM7, HFP, MGO #### [facility] (DEFAULT) [address] [place] [address] 45708 MCV (RBC) [Entitic vol] 87.2 fL Normal 79.0-94.5 [place] Comment on above: Performed By: #### C HM7, HFP, MGO #### [facility] (DEFAULT) [address] [place] [address] 34151 Mean Cell Hgb 28.0 pg Normal 26.1-33.3 [place] Comment on above: Performed By: #### Chinedu HM7, HFP, MGO #### [facility] (DEFAULT) [address] [place] [address] 85008 Mean Cell Hgb Conc 32.1 g/dL Normal 31.9-36.5 [facility] Comment on above: Performed By: #### C HM7, HFP, MGO #### [facility] (DEFAULT) [address] [place] [address] 80817 Platelet mean volume (Bld) [Entitic vol] 10.2 fL Normal 8.7-12.3 [place] Comment on above: Performed By: #### C HM7, HFP, MGO #### [facility] (DEFAULT) [address] [place] [address] 49[address] Platelets (Bld) [#/Vol] 166 10*3/uL Normal 146-337 [place] Comment on above: Performed By: #### C HM7, HFP, MGO #### [facility] (DEFAULT) [address] [place] [address] 36882 RBC (Bld) [#/Vol] 4.46 10*6/uL Normal 4.38-5.83 [place] Comment on above: Performed By: #### C HM7, HFP, MGO #### [facility] (DEFAULT) [address] [place] [address] RBC Distribution 13.8 % Normal 10.9-14.3 [facility] Comment on above: Performed By: #### C HM7, HFP, MGO #### [facility] (DEFAULT) [address] [place] [address] WBC (Bld) [#/Vol] 3.79 10*3/uL Normal 3.73-10.10 [place] Comment on above: Performed By: #### C HM7, HFP, MGO #### [facility] (DEFAULT) [address] [place] [address] CHEM 7 (LYTES,BUN,CREA,GLUC) on 01-20-2024 Anion gap [Moles/Vol] 12 mmol/L 7 - 17 mmol/L [facility] Chloride [Moles/Vol] 105 mmol/L 98 - 10 8 mmol/L [facility] CO2 [Moles/Vol] 28 mmol/L 21 - 31 mmol/L [facility] Creatinine [Mass/Vol] 1.12 mg/dL 0.70 - 1.30 mg/dL [facility] eGFR, CKD-EPI, Male 79 - PINF [facility] Comment on above: Reported eGFR is bas ed on the CKD-EPI 2020 equation using creatinine, age, and sex. Glucose [Mass/Vol] 88 mg/dL 70 - 99 mg/dL [facility] Osmolality Calc [Osmolality] 294 [facility] Potassium [Moles/Vol] 3.8 mmol/L 3.5 - 5.0 mmol/L [facility] Sodium [Moles/Vol] 141 mmol/L 135 - 145 mmol/L [facility] Urea nitrogen [Mass/Vol] 15 mg/dL 7 - 25 mg/dL [facility] Urea nitrogen/Creatinine [Mass ratio] 13 mg/mg [facility] Anion gap [Moles/Vol] 12 mmol/L Normal 7-17 [facility] Comment on above: Performed By: #### C HM7, HFP, MGO #### [facility] (DEFAULT) [address] [place] [address] Chloride [Moles/Vol] 105 mmol/L Normal 98-108 [place] Comment on above: Performed By: #### C HM7, HFP, MGO #### [facility] (DEFAULT) [address] [place] [address] 21466 CO2 [Moles/Vol] 28 mmol/L Normal 21-31 [facility] Comment on above: Performed By: #### C HM7, HFP, MGO #### [facility] (DEFAULT) [address] [place] [address] 98240 Creatinine [Mass/Vol] 1.12 mg/dL Normal 0.70-1.30 [facility] Comment on above: Performed By: #### C HM7, HFP, MGO #### [facility] (DEFAULT) [address] [place] [address] 67645 GFR/1.73 sq M.predicted among non-blacks MDRD (S/P/Bld) [Vol rate/Area] 79 mL/min/{1.73_m2} Normal >=60 [place] Comment on above: Result Comment: Repo rted eGFR is based on the CKD-EPI 2020 equation using creatinine, age, and sex. Performed By: #### C HM7, HFP, MGO #### [facility] (DEFAULT) [address] [place] [address] 96797 Glucose [Mass/Vol] 88 mg/dL Normal 70-99 [facility] Comment on above: Performed By: #### C HM7, HFP, MGO #### [facility] (DEFAULT) [address] [place] [address] 54826 Osmolality [Osmolality] 294 mosm/kg Normal 278-305 [place] Comment on above: Performed By: #### C HM7, HFP, MGO #### [facility] (DEFAULT) [address] [place] [address] 78035 Potassium [Moles/Vol] 3.8 mmol/L Normal 3.5-5.0 [facility] Comment on above: Performed By: #### C HM7, HFP, MGO #### [facility] (DEFAULT) [address] [place] [address] Sodium [Moles/Vol] 141 mmol/L Normal 135-145 [facility] Comment on above: Performed By: #### C HM7, HFP, MGO #### [facility] (DEFAULT) [address] [place] [address], [place] [address] Urea nitrogen [Mass/Vol] 15 mg/dL Normal 7-25 [place] Comment on above: Performed By: #### C HM7, HFP, MGO #### [facility] (DEFAULT) [address] [place] [address] 63341 Urea nitrogen/Creatinine [Mass ratio] 13 mg/mg Normal [place] Comment on above: Performed By: #### C HM7, HFP, MGO #### [facility] (DEFAULT) [address] [place] [address] 42036 Cardiac catheterization stud yon 01-20-2024 [facility] Radiology Study observation (narrative) [facility] Radiology Study observation (narrative) [facility] EBV BY PCR, QUANTITATIVE,BLO ODOrdered By: Charlotte Jensen on 01-20-2024 EBV DNA ESTELITA+probe (Unsp spec) [#/Vol] NINF [facility] Interpretation and review of laboratory results Normal [facility] This test was performed using a [...] [Mass/Vol] 3.7 g/dL 3.5 - 5.0 g/dL [facility] ALP [Catalytic activity/Vol] 73 U/L 32 - 126 U/L [facility] ALT [Catalytic activity/Vol] 12 U/L 10 - 52 U/L [facility] AST [Catalytic activity/Vol] 19 U/L 10 - 39 U/L [facility] Bilirubin [Mass/Vol] 2.1 mg/dL High NINF - 1.5 mg/dL [facility] Bilirubin.direct [Mass/Vol] 0.5 mg/dL High NINF - 0.3 mg/dL [facility] Interpretation and review of laboratory results Abnormal [facility] Protein [Mass/Vol] 6.1 g/dL Low 6.4 - 8.3 g/dL [facility] Albumin [Mass/Vol] 3.7 g/dL Normal 3.5-5.0 [facility] Comment on above: Performed By: #### Chinedu MEDLEY, TAVO, MGO #### [facility] (DEFAULT) [address] [address] ALP [Catalytic activity/Vol] 73 U/L Normal 32-126 [place] Comment on above: Performed By: #### Chinedu MEDLEY, HFP, MGO #### [facility] (DEFAULT) [address] [address] ALT [Catalytic activity/Vol] 12 U/L Normal 10-52 [place] Comment on above: Performed By: #### Chinedu MEDLEY, HFP, MGO #### [facility] (DEFAULT) [address] [address] AST [Catalytic activity/Vol] 19 U/L Normal 10-39 [place] Comment on above: Performed By: #### Chinedu MEDLEY, HFP, MGO #### [facility] (DEFAULT) [address] [place] [address] 61943 Bilirubin [Mass/Vol] 2.1 mg/dL High <1.5 [place] Comment on above: Performed By: #### C HM7, HFP, MGO #### [facility] (DEFAULT) [address] [place] [address] 41999 Bilirubin.indirect [Mass/Vol] 0.5 mg/dL High <0.3 [place] Comment on above: Performed By: #### C HM7, HFP, MGO #### [facility] (DEFAULT) [address] [place] [address] 96137 Protein [Mass/Vol] 6.1 g/dL Low 6.4-8.3 [facility] Comment on above: Performed By: #### C HM7, HFP, MGO #### [facility] (DEFAULT) [address] [place] [address] 05341 ITRACONAZOLE LEVELon 024 Hydroxyitraconazole 7.6 mcg/mL Normal [place] Comment on above: Order Comment: Pleas e draw level at specified interval PRIOR to dose. Result Comment: REFERENCE VALUE No therapeutic range established; activity and serum concentration are similar to parent drug. ADDITIONAL INFORMATION This test was developed and its performance characteristics determined by [facility] in a manner consistent with CLIA requirements. This test has not been cleared or approved by the U.S. Food and Drug Administration. Test Performed by: [facility] - [address] [address] [place] Operator: Rosendo Bose M.D. Ph.D.; CLIA# [id number] Performed By: #### P TPTT #### [facility] (DEFAULT) [address] [address] Itraconazole 6.0 mcg/mL Normal [place] Comment on above: Order Comment: Pleas e draw level at specified interval PRIOR to dose. Result Comment: REFERENCE VALUE >0.5 (localized infection), >1.0 (systemic infection) Performed By: #### P TPTT #### [facility] (DEFAULT) [address] [place] [address] MAGNESIUMon 01-20-2024 Interpretation and review of laboratory results Normal [facility] Magnesium [Mass/Vol] 1.6 mg/dL 1.6 - 2 .6 mg/dL [facility] Magnesium [Mass/Vol] 1.6 mg/dL Normal 1.6-2.6 [place] Comment on above: Performed By: #### C HM7, HFP, MGO #### [facility] (DEFAULT) [address] [place], [place] [address] No Panel Informationon 01-20 [facility] POCT CO-OXIMETRYon Hemoglobin (Bld) [Mass/Vol] 12.8 g/dL Low 13.4 - 16.8 g/dL [facility] Interpretation and review of laboratory results Abnormal [facility] Oxyhemoglobin 69 % Low 94 - 98 % [facility] Ordering physician notified. Test performed at address of the patient encounter. [facility] Hemoglobin (Bld) [Mass/Vol] 13.3 g/dL Low 13.4 - 16.8 g/dL [facility] Interpretation and review of laboratory results Abnormal [facility] Oxyhemoglobin 69 % Low 94 - 98 % [facility] Ordering physician notified. Test performed at address of the patient encounter. [facility] PT,INR,PTTon 01-20-2024 aPTT Coag (PPP) [Time] 30.6 s OS [facility] INR Coag (Bld) [Relative time] 1.2 {INR} High 0.9 - 1.1 [facility] Interpretation and review of laboratory results Abnormal [facility] PT Coag (PPP) [Time] 15.5 s High [facility] aPTT Coag (Bld) [Time] 30.6 s Normal 24.0-34.3 [facility] Comment on above: Performed By: #### P TPTT #### [facility] (DEFAULT) [address] [place] [address] INR Coag (PPP) [Relative time] 1.2 {INR} High 0.9-1.1 [place] Comment on above: Performed By: #### P TPTT #### [facility] (DEFAULT) [address] [place] [address] PT Coag (PPP) [Time] 15.5 s High 11.9-14.2 [place] Comment on above: Performed By: #### P TPTT #### [facility] (DEFAULT) [address] [place] [address]136 TACROLIMUS LEVEL, TROUGH (UT E DRUG LEVEL)Ordered By: Yanira Marcum on 01-20-2024 Interpretation and review of laboratory results Normal [facility] Tacrolimus (Bld) [Mass/Vol] 7.7 ng/mL Bone Marrow Transplant: 4.0-12.0, Therapeutic: 5.0-15.0 [facility] Method performed is a chemiluminescent microparticle immunoasssay on the [employer] i2000. The range is based on experience at [facility] and users should be aware that target concentrations vary widely depending on concomitant therapy, time post-transplant, and desired degree of immunosuppression. [place] TACROLIMUS LEVEL, TROUGH (UT E DRUG LEVEL)on 01-20-2024 Tacrolimus, Trough 7.7 ng/mL Normal Bone Susana ow Transplant: 4.0-12.0, Therapeutic: 5.0-15.0 [place] Comment on above: Order Comment: Dilan gregory draw at specified interval PRIOR to dose. Do not hold dose to wait for level. Specimens batched twice per day, (M-F) and once per day weekendsMethod performed is a chemiluminescent microparticle immunoasssay on the [employer] i2000.The range is based on experience at [facility] and users should be aware that target concentrations vary widely depending on concomitant therapy, time post-transplant, and desired degree of immunosuppression. Performed By: #### P TPTT #### [facility] (DEFAULT) [address] [place] [address] CBC,PLATELETSon 01-19-2024 Erythrocyte distribution width (RBC) [Ratio] 13.9 % 10.9 - 14.3 % [facility] Hematocrit (Bld) [Volume fraction] 37.5 % Low 39.6 - 48.8 % [facility] Hemoglobin (Bld) [Mass/Vol] 12.1 g/dL Low 13.4 - 16.8 g/dL [facility] Interpretation and review of laboratory results Abnormal [facility] MCH (RBC) [Entitic mass] 28.3 pg 26.1 - 33.3 pg [facility] MCHC (RBC) [Mass/Vol] 32.3 g/dL 31.9 - 36.5 g/dL [facility] MCV (RBC) [Entitic vol] 87.8 fL 79.0 - 94.5 fL [facility] Platelet mean volume (Bld) [Entitic vol] 10.4 fL 8.7 - 12.3 fL [facility] Platelets (Bld) [#/Vol] 163 10*3/uL 146 - 337 K/uL [facility] RBC (Bld) [#/Vol] 4.27 10*6/uL Low [facility] WBC (Bld) [#/Vol] 3.69 10*3/uL Low 3.73 - 10. 10 K/uL [facility] Hematocrit (Bld) [Volume fraction] 37.5 % Low 39.6-48.8 [place] Comment on above: Performed By: #### P TPTT #### [facility] (DEFAULT) [address] [place] [address] 50946 Hemoglobin (Bld) [Mass/Vol] 12.1 g/dL Low 13.4-16.8 [place] Comment on above: Performed By: #### P TPTT #### [facility] (DEFAULT) [address] [place] [address] 67294 MCV (RBC) [Entitic vol] 87.8 fL Normal 79.0-94.5 [place] Comment on above: Performed By: #### P TPTT #### [facility] (DEFAULT) [address] [address] Mean Cell Hgb 28.3 pg Normal 26.1-33.3 [place] Comment on above: Performed By: #### P TPTT #### [facility] (DEFAULT) [address] [address] Mean Cell Hgb Conc 32.3 g/dL Normal 31.9-36.5 [facility] Comment on above: Performed By: #### P TPTT #### [facility] (DEFAULT) [address] [place] [address] 99874 Platelet mean volume (Bld) [Entitic vol] 10.4 fL Normal 8.7-12.3 [place] Comment on above: Performed By: #### P TPTT #### [facility] (DEFAULT) [address] [place] [address] 81645 Platelets (Bld) [#/Vol] 163 10*3/uL Normal 146-337 [place] Comment on above: Performed By: #### P TPTT #### [facility] (DEFAULT) [address] [place] [address] 43416 RBC (Bld) [#/Vol] 4.27 10*6/uL Low 4.38-5.83 [place] Comment on above: Performed By: #### P TPTT #### [facility] (DEFAULT) [address] [place] [address] RBC Distribution 13.9 % Normal 10.9-14.3 [facility] Comment on above: Performed By: #### P TPTT #### [facility] (DEFAULT) [address] [place] [address] WBC (Bld) [#/Vol] 3.69 10*3/uL Low 3.73-10.10 [place] Comment on above: Performed By: #### P TPTT #### [facility] (DEFAULT) [address] [place] [address] CHEM 7 (LYTES,BUN,CREA,GLUC) on 01-19-2024 Anion gap [Moles/Vol] 14 mmol/L 7 - 17 mmol/L [facility] Chloride [Moles/Vol] 106 mmol/L 98 - 10 8 mmol/L [facility] CO2 [Moles/Vol] 24 mmol/L 21 - 31 mmol/L [facility] Creatinine [Mass/Vol] 1.13 mg/dL 0.70 - 1.30 mg/dL [facility] eGFR, CKD-EPI, Male 79 - PINF [facility] Comment on above: Reported eGFR is bas ed on the CKD-EPI 2020 equation using creatinine, age, and sex. Glucose [Mass/Vol] 86 mg/dL 70 - 99 mg/dL [facility] Osmolality Calc [Osmolality] 293 [facility] Potassium [Moles/Vol] 3.8 mmol/L 3.5 - 5.0 mmol/L [facility] Sodium [Moles/Vol] 140 mmol/L 135 - 145 mmol/L [facility] Urea nitrogen [Mass/Vol] 16 mg/dL 7 - 25 mg/dL [facility] Urea nitrogen/Creatinine [Mass ratio] 14 mg/mg [facility] Anion gap [Moles/Vol] 14 mmol/L Normal 7-17 [facility] Comment on above: Performed By: #### C HM7, HFP, MGO #### [facility] (DEFAULT) [address] [place] [address] 02852 Chloride [Moles/Vol] 106 mmol/L Normal 98-108 [place] Comment on above: Performed By: #### C HM7, HFP, MGO #### [facility] (DEFAULT) [address] [place] [address] 77191 CO2 [Moles/Vol] 24 mmol/L Normal 21-31 [facility] Comment on above: Performed By: #### C HM7, HFP, MGO #### [facility] (DEFAULT) [address] [place] [address] 33310 Creatinine [Mass/Vol] 1.13 mg/dL Normal 0.70-1.30 [facility] Comment on above: Performed By: #### C HM7, HFP, MGO #### [facility] (DEFAULT) [address] [place] [address]2110 GFR/1.73 sq M.predicted among non-blacks MDRD (S/P/Bld) [Vol rate/Area] 78 mL/min/{1.73_m2} Normal >=60 [place] Comment on above: Result Comment: Repo rted eGFR is based on the CKD-EPI 2020 equation using creatinine, age, and sex. Performed By: #### C HM7, HFP, MGO #### [facility] (DEFAULT) [address] [place] [address]306 Glucose [Mass/Vol] 86 mg/dL Normal 70-99 [facility] Comment on above: Performed By: #### C HM7, HFP, MGO #### [facility] (DEFAULT) [address] [place] [address] 09503 Osmolality [Osmolality] 293 mosm/kg Normal 278-305 [place] Comment on above: Performed By: #### C HM7, HFP, MGO #### [facility] (DEFAULT) [address] [place] [address] 14740 Potassium [Moles/Vol] 3.8 mmol/L Normal 3.5-5.0 [facility] Comment on above: Performed By: #### C HM7, HFP, MGO #### [facility] (DEFAULT) [address] [place] [address]72 Sodium [Moles/Vol] 140 mmol/L Normal 135-145 [facility] Comment on above: Performed By: #### C HM7, HFP, MGO #### [facility] (DEFAULT) [address] [place] [address] 85873 Urea nitrogen [Mass/Vol] 16 mg/dL Normal 7-25 [place] Comment on above: Performed By: #### C HM7, HFP, MGO #### [facility] (DEFAULT) [address] [place] [address] 10292 Urea nitrogen/Creatinine [Mass ratio] 14 mg/mg Normal [place] Comment on above: Performed By: #### C HM7, HFP, MGO #### [facility] (DEFAULT) [address] [place] [address]1042 EBV BY PCR, QUANTITATIVE,BLO ODon 01-19-2024 Ebv [...] for research. Performed By: #### E BVPCR #### [facility] (DEFAULT) [address] [place] [address] 23710 HISTOPLASMA AND BLASTOMYCES ANTIGEN, ENZYME IMMUNOASSAY, SERMon 01-19-2024 Histoplasma/Blastomyce s Ag Result Not detected Not Detected [facility] Comment on above: No antigen from Hist oplasma or Blastomyces detected. False negative results may occur depending on extent of disease, and/or site of infection. Repeat testing on a new specimen if clinically indicated. Histoplasma/Blastomyce s Ag Value Not detected ng/mL [facility] Comment on above: ADDITIONAL INFORMATION This test was developed and its performance characteristics determined by [facility] in a manner consistent with CLIA requirements. This test has not been cleared or approved by the U.S. Food and Drug Administration. Test Performed by: [facility] [address] [place] [address] [place] Operator: Rosendo Bose M.D. Ph.D.; CLIA# [id number] [facility] MAGNESIUMon 01-19-2024 Interpretation and review of laboratory results Normal [facility] Magnesium [Mass/Vol] 1.8 mg/dL 1.6 - 2 .6 mg/dL [facility] Magnesium [Mass/Vol] 1.8 mg/dL Normal 1.6-2.6 [place] Comment on above: Performed By: #### C HM7, [facility], MGO #### [facility] (DEFAULT) [address] [place] [address] No Panel Informationon 01-19 [facility] TACROLIMUS LEVEL, TROUGH (UT E DRUG LEVEL)Ordered By: Raymundo Mehta on 01-19-2024 Interpretation and review of laboratory results Normal [facility] Tacrolimus (Bld) [Mass/Vol] 6.8 ng/mL Bone Marrow Transplant: 4.0-12.0, Therapeutic: 5.0-15.0 [facility] Method performed is a chemiluminescent microparticle immunoasssay on the [employer] i2000. The range is based on experience at [facility] and users should be aware that target concentrations vary widely depending on concomitant therapy, time post-transplant, and desired degree of immunosuppression. [facility] TACROLIMUS LEVEL, TROUGH (UT E DRUG LEVEL)on 01-19-2024 Tacrolimus, Trough 6.8 ng/mL Normal Bone Susana ow Transplant: 4.0-12.0, Therapeutic: 5.0-15.0 [place] Comment on above: Order Comment: This [...] for research. Performed By: #### E BVPCR #### [facility] (DEFAULT) [address] [place] [address] US AV fistulaOrdered By: Diana Reyes on 01-19-2024 [facility] Work Phone: US AV fistulaon 01-19-2024 Radiology Study observation (narrative) [facility] AFP TUMOR MARKEROrdered By: Francisca Alaniz on 01-18-2024 AFP.tumor marker [Mass/Vol] ng/mL NINF - 8.1 ng/mL [facility] Comment on above: This test was perfor med on the [employer] IM Immunoassay platform by [employer] which is a two-site sandwich chemiluminescent immunoassay. It is important to note that assays using different manufacturers and/or methods may not be comparable. Interpretation and review of laboratory results Normal [facility] CBC,PLATELETSon 01-18-2024 Erythrocyte distribution width (RBC) [Ratio] 13.9 % 10.9 - 14.3 % [facility] Hematocrit (Bld) [Volume fraction] 38.4 % Low 39.6 - 48.8 % [facility] Hemoglobin (Bld) [Mass/Vol] 12.1 g/dL Low 13.4 - 16.8 g/dL [facility] Interpretation and review of laboratory results Abnormal [facility] MCH (RBC) [Entitic mass] 27.8 pg 26.1 - 33.3 pg [facility] MCHC (RBC) [Mass/Vol] 31.5 g/dL Low 31.9 - 36.5 g/dL [facility] MCV (RBC) [Entitic vol] 88.3 fL 79.0 - 94.5 fL [facility] Platelet mean volume (Bld) [Entitic vol] 10.4 fL 8.7 - 12.3 fL [facility] Platelets (Bld) [#/Vol] 183 10*3/uL 146 - 337 K/uL [facility] RBC (Bld) [#/Vol] 4.35 10*6/uL Low [facility] WBC (Bld) [#/Vol] 3.66 10*3/uL Low 3.73 - 10. 10 K/uL [facility] Hematocrit (Bld) [Volume fraction] 38.4 % Low 39.6-48.8 [place] Comment on above: Performed By: #### P TPTT #### [facility] (DEFAULT) [address] [address] Hemoglobin (Bld) [Mass/Vol] 12.1 g/dL Low 13.4-16.8 [place] Comment on above: Performed By: #### P TPTT #### [facility] (DEFAULT) [address] [address] MCV (RBC) [Entitic vol] 88.3 fL Normal 79.0-94.5 [place] Comment on above: Performed By: #### P TPTT #### [facility] (DEFAULT) [address] [address] Mean Cell Hgb 27.8 pg Normal 26.1-33.3 [place] Comment on above: Performed By: #### P TPTT #### [facility] (DEFAULT) [address] [address] Mean Cell Hgb Conc 31.5 g/dL Low 31.9-36.5 [facility] Comment on above: Performed By: #### P TPTT #### [facility] (DEFAULT) [address] [place] [address]13 Platelet mean volume (Bld) [Entitic vol] 10.4 fL Normal 8.7-12.3 [place] Comment on above: Performed By: #### P TPTT #### [facility] (DEFAULT) [address] [place] [address]67 Platelets (Bld) [#/Vol] 183 10*3/uL Normal 146-337 [place] Comment on above: Performed By: #### P TPTT #### [facility] (DEFAULT) [address] [place] [address]14 RBC (Bld) [#/Vol] 4.35 10*6/uL Low 4.38-5.83 [place] Comment on above: Performed By: #### P TPTT #### [facility] (DEFAULT) [address] [place] [address]381 RBC Distribution 13.9 % Normal 10.9-14.3 [facility] Comment on above: Performed By: #### P TPTT #### [facility] (DEFAULT) [address] [place] [address] WBC (Bld) [#/Vol] 3.66 10*3/uL Low 3.73-10.10 [place] Comment on above: Performed By: #### P TPTT #### [facility] (DEFAULT) [address] [place] [address] CHEM 7 (LYTES,BUN,CREA,GLUC) on 01-18-2024 Anion gap [Moles/Vol] 11 mmol/L 7 - 17 mmol/L [facility] Chloride [Moles/Vol] 108 mmol/L 98 - 10 8 mmol/L [facility] CO2 [Moles/Vol] 26 mmol/L 21 - 31 mmol/L [facility] Creatinine [Mass/Vol] 1.00 mg/dL 0.70 - 1.30 mg/dL [facility] eGFR, CKD-EPI, Male - PINF [facility] Comment on above: Reported eGFR is bas ed on the CKD-EPI 2020 equation using creatinine, age, and sex. Glucose [Mass/Vol] 89 mg/dL 70 - 99 mg/dL [facility] Osmolality Calc [Osmolality] 295 [facility] Potassium [Moles/Vol] 3.9 mmol/L 3.5 - 5.0 mmol/L [facility] Sodium [Moles/Vol] 141 mmol/L 135 - 145 mmol/L [facility] Urea nitrogen [Mass/Vol] 16 mg/dL 7 - 25 mg/dL [facility] Urea nitrogen/Creatinine [Mass ratio] 16 mg/mg [facility] Anion gap [Moles/Vol] 11 mmol/L Normal 7-17 [facility] Comment on above: Performed By: #### C HM7, HFP, MGO #### [facility] (DEFAULT) [address] [place] [address] Chloride [Moles/Vol] 108 mmol/L Normal 98-108 [place] Comment on above: Performed By: #### C HM7, HFP, MGO #### [facility] (DEFAULT) [address] [place] [address] CO2 [Moles/Vol] 26 mmol/L Normal 21-31 [facility] Comment on above: Performed By: #### C HM7, HFP, MGO #### [facility] (DEFAULT) [address] [place] [address] Creatinine [Mass/Vol] 1.00 mg/dL Normal 0.70-1.30 [facility] Comment on above: Performed By: #### C HM7, HFP, MGO #### [facility] (DEFAULT) [address] [place] [address] eGFR, CKD-EPI, Male > Normal >=60 [place] Comment on above: Result Comment: Repo rted eGFR is based on the CKD-EPI 2020 equation using creatinine, age, and sex. Performed By: #### C HM7, HFP, MGO #### [facility] (DEFAULT) [address] [place] [address]243 Glucose [Mass/Vol] 89 mg/dL Normal 70-99 [facility] Comment on above: Performed By: #### C HM7, HFP, MGO #### [facility] (DEFAULT) [address] [place] [address]93 Osmolality [Osmolality] 295 mosm/kg Normal 278-305 [place] Comment on above: Performed By: #### C HM7, HFP, MGO #### [facility] (DEFAULT) [address] [place] [address]93 Potassium [Moles/Vol] 3.9 mmol/L Normal 3.5-5.0 [facility] Comment on above: Performed By: #### C HM7, HFP, MGO #### [facility] (DEFAULT) [address] [place] [address]684 Sodium [Moles/Vol] 141 mmol/L Normal 135-145 [facility] Comment on above: Performed By: #### C HM7, HFP, MGO #### [facility] (DEFAULT) [address] [place] [address] 43[address] Urea nitrogen [Mass/Vol] 16 mg/dL Normal 7-25 [place] Comment on above: Performed By: #### C HM7, HFP, MGO #### [facility] (DEFAULT) [address] [place] [address] 99431 Urea nitrogen/Creatinine [Mass ratio] 16 mg/mg Normal [place] Comment on above: Performed By: #### C HM7, HFP, MGO #### [facility] (DEFAULT) [address] [place] [address] Cardiac echo study Procedure Ordered By: Gian Carlos on 01-18-2024 Ao ASC index 1.63 cm/m2 [facility] Work Phone: [phone] Ao peak mleiton 1.46 m[facility]s [facility]: [phone] Ao SOV index 1.56 cm/m2 [facility] Work Phone: [phone] Ao STJ index 1.25 cm/m2 [facility] Work Phone: [phone] Ao VTI 35.74 cm [facility] Work Phone: [phone] Ascending [facility] 3.[facility]: [phone] AV LVOT peak gradient 4 mmHg [facility] Work Phone: [phone] AV mean gradient 5 mmHg [facility] Work Phone: [phone] AV peak gradient 9 mmHG [facility] Work Phone: [phone] AV valve area 3.09 cm2 [facility] Work Phone: [phone] AV Velocity Ratio 0.73 [facility] Work Phone: [phone] VEGA (continuity Vmax) 3.01 cm2 [facility] Work Phone: [phone] VEGA (continuity VTI) 3.09 cm2 [facility] Work Phone: [phone] VEGA index (continuity Vmax) 1.45 m/s [facility] Work Phone: [phone] VEGA index (continuity VTI) 1.49 cm2/m2 [facility] [facility] Work Phone: [phone] Avg e' pk meliton 0.07 m/s [facility] Work Phone: [phone] Avg E/e' ratio 19.45 [facility] Work Phone: [phone] Body surface area Derived from formula 2.08 m2 [facility] Work Phone: [phone] BP EF 62 % [facility] Work Phone: [phone] DI (Vmax) 0.73 [facility]: [phone] DI (VTI) 0.74 m/2 [facility] Work Phone: [phone] E wave decelartion time 180.38 msec [facility] Work Phone: [phone] e' lateral pk meliton 0.0789 m[facility]s [facility]: [phone] e' lateral pk meliton 0.08 [facility]s [facility]: [phone] e' septal pk meliton 0.0653 m/s [facility]: [phone] e' septal pk meliton 0.07 m/s [facility]: [phone] E/A ratio 2.67 [facility] Work Phone: [phone] E[facility]e' [facility]: [phone] E/e' septal ratio 21.29 [facility]: [phone] EF SP 2CH 66 [facility] Work Phone: [phone] EF SP 4CH 58 [facility] Work Phone: [phone] FS 28 % 28 - 44 % [facility] Work Phone: [phone] IVC ostium 2.30 cm [facility] Work Phone: [phone] IVS 1.11 cm [facility] Work Phone: [phone] LA AREA 2CH 24.36 cm2 [facility] Work Phone: [phone] LA area 4CH 20.36 cm2 [facility] Work Phone: [phone] LA ESV BP (MOD) 64 [facility]: [phone] LA ESV BP (MOD) index 31 mL/m2 [facility] Work Phone: [phone] LA ESV SP 2CH (MOD) 76 mL [facility] Work Phone: [phone] LA ESV SP 4CH (MOD) 53 mL [facility] Work Phone: [phone] LV EDV BP 180 mL [facility] Work Phone: [phone] LV EDV SP 2CH 190 mL [facility] Work Phone: [phone] LV EDV SP 4CH 166 mL [facility] Work Phone: [phone] LV ESV BP 69 mL [facility] Work Phone: [phone] LV ESV SP 2CH 65 mL [facility] Work Phone: [phone] LV ESV SP 4CH 70 mL [facility] Work Phone: [phone] LV mass 254.73 g [facility] Work Phone: [phone] LV Mass Index 122.5 g/m2 [facility] Work Phone: [phone] LV RWT 0.42 [facility] Work Phone: [phone] LV stroke volume BP (ml) 111 mL [facility] Work Phone: [phone] LV stroke volume index BP 53.37 mL/m2 [facility] Work Phone: [phone] LVIDD 5.53 cm [facility] Work Phone: [phone] LVIDS 3.97 cm [facility] Work Phone: [phone] LVOT area 4.15 cm2 [facility] Work Phone: [phone] LVOT diameter 2.30 cm [facility] Phone: [phone] LVOT peak meliton 1.06 m/s [facility] Work Phone: [phone] LVOT peak VTI 26.61 cm [facility] Work Phone: [phone] LVOT stroke volume 111 cm3 [facility] Work Phone: [phone] LVOT stroke volume index 53.13 ml/m2 [facility] Work Phone: [phone] Mr max meliton 4.21 m/s [facility] Work Phone: [phone] MR VTI 134.50 cm [facility] Work Phone: [phone] MV mean gradient 3 mmHg [facility] Work Phone: [phone] MV peak gradient 11 mmHg [facility] Work Phone: [phone] MV pk A meliton 0.52 m/s [facility] Work Phone: [phone] MV pk E meliton 1.39 m/s [facility] Work Phone: [phone] MV stenosis pressure 1/2 time 58.56 ms [facility] Work Phone: [phone] MV valve area by continuity eq 2.93 cm2 [facility] Work Phone: [phone] MV valve area p 1/2 method 3.76 cm2 [facility] Work Phone: [phone] MV VTI 37.70 cm [facility] Work Phone: [phone] MVA (continuity VTI) 2.92 cm [facility] Work Phone: [phone] [facility] AV VTI RATIO PRE STRESS 0.74 [facility] Work Phone: [phone] [facility] ECHO LV BIPLANE SYSTOLIC VOLUME INDEX 33.17 mL/m2 [facility] Work Phone: [facility] ECHO LV BP DIASTOLIC VOLUME INDEX 86.54 mL/m2 [facility] Work Phone: [facility] ECHO MR PEAK GRADIENT 70.94 mmHg [facility] Work Phone: [phone] PW 1.16 cm [facility] Work Phone: [phone] RA area 4CH (MOD) 14.50 cm2 [facility] Work Phone: [phone] RA vol index 4CH (MOD) 18.27 mL/m2 [facility] Work Phone: Right atrium volume 4 chamber method of disks 38 mL [facility] Work Phone: RV Area diastolic 33.20 cm2 [facility] Work Phone: RV Area systolic 21.30 cm2 [facility]: RV basal diam 4.52 cm [facility] Work Phone: RV Fractional area change 35.8 % [facility] Work Phone: RV long diam 8.96 cm [facility] Work Phone: RV mid diam 3.70 cm [facility] Work Phone: RV S' 22.01 cm/s [facility] Work Phone: RVOT peak gradient 4 mmHg [facility] Work Phone: RVOT peak meliton 0.96 m/s [facility] Work Phone: RVOT peak VTI 20.86 cm [facility] Work Phone: Sinus 3.24 cm [facility] Work Phone: STJ 2.61 cm [facility] Work Phone: Stroke Volume 111 cm/mL [facility] Work Phone: [phone] Stroke volume index 53 [facility] Work Phone: [phone] TAPSE 2.19 cm [facility] Work Phone: [phone] [facility] Work Phone: [phone] Cardiac echo study Procedure on 01-18-2024 Left [...] echocardiography study was performed. Imaging system used: [employer]. Indications Indications for study: shortness of breath. [facility] Radiology Study observation (narrative) [facility] ECHOCARDIOGRAMon 01-18-2024 Echocardiography ? Left Ventricle: [...] original result were not included. Facility [facility] Patient Information Patient Name George Styles [...] Role Read Date Gian Carlos MD Echo Grant 01/18/2024 Left Heart Measurements LV - Systole [...] Height We (more content not included)... Normal [place] HEPATIC FUNCTION PANELon Albumin [Mass/Vol] 3.5 g/dL 3.5 - 5.0 g/dL [facility] ALP [Catalytic activity/Vol] 70 U/L 32 - 126 U/L [facility] ALT [Catalytic activity/Vol] 8 U/L Low 10 - 52 U/L [facility] AST [Catalytic activity/Vol] 20 U/L 10 - 39 U/L [facility] Bilirubin [Mass/Vol] 1.7 mg/dL High [facility]/dL [facility] Bilirubin.direct [Mass/Vol] 0.4 mg/dL High NINF - 0.3 mg/dL [facility] Protein [Mass/Vol] 6.0 g/dL Low 6.4 - 8.3 g/dL [facility] Albumin [Mass/Vol] 3.5 g/dL Normal 3.5-5.0 [facility] Comment on above: Performed By: #### C HM7, HFP, MGO #### [facility] (DEFAULT) [address] [place] [address] 21419 ALP [Catalytic activity/Vol] 70 U/L Normal 32-126 [place] Comment on above: Performed By: #### Chinedu HM7, HFP, MGO #### [facility] (DEFAULT) [address] [place] [address] ALT [Catalytic activity/Vol] 8 U/L Low 10-52 [place] Comment on above: Performed By: #### Chinedu HM7, HFP, MGO #### [facility] (DEFAULT) [address] [place] [address] AST [Catalytic activity/Vol] 20 U/L Normal 10-39 [place] Comment on above: Performed By: #### TAVO GONG, MGO #### [facility] (DEFAULT) [address] [place] [address] 60267 Bilirubin [Mass/Vol] 1.7 mg/dL High <1.5 [place] Comment on above: Performed By: #### TAVO GONG, MGO #### [facility] (DEFAULT) [address] [place] [address] 95946 Bilirubin.indirect [Mass/Vol] 0.4 mg/dL High <0.3 [place] Comment on above: Performed By: #### TAVO GONG, MGO #### [facility] (DEFAULT) [address] [place] [address] 71416 Protein [Mass/Vol] 6.0 g/dL Low 6.4-8.3 [facility] Comment on above: Performed By: #### Chinedu MEDLEY, TAVO, MGO #### [facility] (DEFAULT) [address] [place] [address] 10628 MAGNESIUMon 01-18-2024 Magnesium [Mass/Vol] 1.5 mg/dL Low 1.6 - 2 .6 mg/dL [facility] Magnesium [Mass/Vol] 1.5 mg/dL Low 1.6-2.6 [place] Comment on above: Performed By: #### Chinedu MEDLEY, TAVO, MGO #### [facility] (DEFAULT) [address] [place] [address] 43802 No Panel Informationon 01-18 Interpretation and review of laboratory results Abnormal [facility] PT,INR,PTTon 01-18-2024 aPTT Coag (PPP) [Time] 30.[address] [facility] INR Coag (Bld) [Relative time] 1.1 {INR} 0.9 - 1.1 [facility] Interpretation and review of laboratory results Abnormal [facility] PT Coag (PPP) [Time] 14.5 s High [facility] aPTT Coag (Bld) [Time] 30.0 s Normal 24.0-34.3 [facility] Comment on above: Performed By: #### P TPTT #### [facility] (DEFAULT) [address] [place] [address] 62371 INR Coag (PPP) [Relative time] 1.1 {INR} Normal 0.9-1.1 [place] Comment on above: Performed By: #### P TPTT #### [facility] (DEFAULT) [address] [place] [address] 11352 PT Coag (PPP) [Time] 14.5 s High 11.9-14.2 [place] Comment on above: Performed By: #### P TPTT #### [facility] (DEFAULT) [address] [place] [address] 70790 TSH W/FT4 REFLEXon 4 Interpretation and review of laboratory results Normal [facility] TSH Qn 2.660 m[IU]/L [facility] [facility] TSH 2.660 uIU/mL Normal 0.550-4.780 [place] Comment on above: Performed By: #### C HM7, HFP, MGO #### [facility] (DEFAULT) [address] [place] [address] 12988 AFP TUMOR MARKERon 4 AFP Tumor Marker <2.2 Normal <8.1 [facility] Comment on above: Result Comment: This test was performed on the [employer] IM Immunoassay platform by [employer] which is a two-site sandwich chemiluminescent immunoassay. It is important to note that assays using different manufacturers and/or methods may not be comparable. Performed By: #### C HM7, HFP, MGO #### [facility] (DEFAULT) [address] [place] [address] 32537 DARYL AURIS SCREEN BY PCRO rdered By: Mynor Alejandro on 02-18-2024 Daryl auris Screen by PCR Not detected Not Detected [facility] Interpretation and review of laboratory results Normal [facility] This test was performed using a [...] [Ratio] 14.0 % 10.9 - 14.3 % [facility] Hematocrit (Bld) [Volume fraction] 37.2 % Low 39.6 - 48.8 % [facility] Hemoglobin (Bld) [Mass/Vol] 12.0 g/dL Low 13.4 - 16.8 g/dL [facility] Interpretation and review of laboratory results Abnormal [facility] MCH (RBC) [Entitic mass] 27.9 pg 26.1 - 33.3 pg [facility] MCHC (RBC) [Mass/Vol] 32.3 g/dL 31.9 - 36.5 g/dL [facility] MCV (RBC) [Entitic vol] 86.5 fL 79.0 - 94.5 fL [facility] Platelet mean volume (Bld) [Entitic vol] 10.5 fL 8.7 - 12.3 fL [facility] Platelets (Bld) [#/Vol] 159 10*3/uL 146 - 337 K/uL [facility] RBC (Bld) [#/Vol] 4.30 10*6/uL Low [facility] WBC (Bld) [#/Vol] 3.69 10*3/uL Low 3.73 - 10. 10 K/uL [facility] Hematocrit (Bld) [Volume fraction] 37.2 % Low 39.6-48.8 [place] Comment on above: Performed By: #### P TPTT #### [facility] (DEFAULT) [address] [place] [address] 38341 Hemoglobin (Bld) [Mass/Vol] 12.0 g/dL Low 13.4-16.8 [place] Comment on above: Performed By: #### P TPTT #### [facility] (DEFAULT) [address] [place] [address] 61078 MCV (RBC) [Entitic vol] 86.5 fL Normal 79.0-94.5 [place] Comment on above: Performed By: #### P TPTT #### [facility] (DEFAULT) [address] [place] [address] 37166 Mean Cell Hgb 27.9 pg Normal 26.1-33.3 [place] Comment on above: Performed By: #### P TPTT #### [facility] (DEFAULT) [address] [place] [address] 97301 Mean Cell Hgb Conc 32.3 g/dL Normal 31.9-36.5 [facility] Comment on above: Performed By: #### P TPTT #### [facility] (DEFAULT) [address] [place] [address] 76765 Platelet mean volume (Bld) [Entitic vol] 10.5 fL Normal 8.7-12.3 [place] Comment on above: Performed By: #### P TPTT #### [facility] (DEFAULT) [address] [place] [address] 80202 Platelets (Bld) [#/Vol] 159 10*3/uL Normal 146-337 [place] Comment on above: Performed By: #### P TPTT #### [facility] (DEFAULT) [address] [address] RBC (Bld) [#/Vol] 4.30 10*6/uL Low 4.38-5.83 [place] Comment on above: Performed By: #### P TPTT #### [facility] (DEFAULT) [address] [place] [address] 99937 RBC Distribution 14.0 % Normal 10.9-14.3 [facility] Comment on above: Performed By: #### P TPTT #### [facility] (DEFAULT) [address] [place] [address] WBC (Bld) [#/Vol] 3.69 10*3/uL Low 3.73-10.10 [place] Comment on above: Performed By: #### P TPTT #### [facility] (DEFAULT) [address] [place] [address] 98992 CHEM 7 (LYTES,BUN,CREA,GLUC) on 01-17-2024 Anion gap [Moles/Vol] 13 mmol/L 7 - 17 mmol/L [facility] Chloride [Moles/Vol] 109 mmol/L High 98 - 10 8 mmol/L [facility] CO2 [Moles/Vol] 21 mmol/L 21 - 31 mmol/L [facility] Creatinine [Mass/Vol] 1.04 mg/dL 0.70 - 1.30 mg/dL [facility] eGFR, CKD-EPI, Male 86 - PINF [facility] Comment on above: Reported eGFR is bas ed on the CKD-EPI 2020 equation using creatinine, age, and sex. Glucose [Mass/Vol] 82 mg/dL 70 - 99 mg/dL [facility] Osmolality Calc [Osmolality] 292 [facility] Potassium [Moles/Vol] 4.4 mmol/L 3.5 - 5.0 mmol/L [facility] Sodium [Moles/Vol] 139 mmol/L 135 - 145 mmol/L [facility] Urea nitrogen [Mass/Vol] 17 mg/dL 7 - 25 mg/dL [facility] Urea nitrogen/Creatinine [Mass ratio] 16 mg/mg [facility] Anion gap [Moles/Vol] 13 mmol/L Normal 7-17 [facility] Comment on above: Performed By: #### C HM7, HFP, MGO #### [facility] (DEFAULT) [address] [place] [address] 07796 Chloride [Moles/Vol] 109 mmol/L High 98-108 [place] Comment on above: Performed By: #### C HMJessica, HFP, MGO #### [facility] (DEFAULT) [address] [place] [address] 48698 CO2 [Moles/Vol] 21 mmol/L Normal 21-31 [facility] Comment on above: Performed By: #### C HMJessica, HFP, MGO #### [facility] (DEFAULT) [address] [place] [address] 27069 Creatinine [Mass/Vol] 1.04 mg/dL Normal 0.70-1.30 [facility] Comment on above: Performed By: #### Chinedu HM7, HFP, MGO #### [facility] (DEFAULT) [address] [place] [address] 80521 GFR/1.73 sq M.predicted among non-blacks MDRD (S/P/Bld) [Vol rate/Area] 86 mL/min/{1.73_m2} Normal >=60 [place] Comment on above: Result Comment: Repo rted eGFR is based on the CKD-EPI 2020 equation using creatinine, age, and sex. Performed By: #### C HM7, HFP, MGO #### [facility] (DEFAULT) [address] [place] [address] 48906 Glucose [Mass/Vol] 82 mg/dL Normal 70-99 [facility] Comment on above: Performed By: #### C HM7, HFP, MGO #### [facility] (DEFAULT) [address] [place] [address] 42008 Osmolality [Osmolality] 292 mosm/kg Normal 278-305 [place] Comment on above: Performed By: #### C HM7, HFP, MGO #### [facility] (DEFAULT) [address] [place] [address] 43543 Potassium [Moles/Vol] 4.4 mmol/L Normal 3.5-5.0 [facility] Comment on above: Performed By: #### C HM7, HFP, MGO #### [facility] (DEFAULT) [address] [place] [address] Sodium [Moles/Vol] 139 mmol/L Normal 135-145 [facility] Comment on above: Performed By: #### C HM7, HFP, MGO #### [facility] (DEFAULT) [address] [place] [address] 26916 Urea nitrogen [Mass/Vol] 17 mg/dL Normal 7-25 [place] Comment on above: Performed By: #### C HM7, HFP, MGO #### [facility] (DEFAULT) [address] [place] [address] 47927 Urea nitrogen/Creatinine [Mass ratio] 16 mg/mg Normal [place] Comment on above: Performed By: #### C HM7, HFP, MGO #### [facility] (DEFAULT) [address] [place] [address] ABDOMEN/PELVIS WITHOUT CO NTRASTon 01-17-2024 CT [...] unremarkable. Kidneys: Severe atrophy of the bilateral chilkoot kidney is without hydronephrosis. Right lower quadrant [...] middle lobe. Trace left pleural effusion. Normal [place] CT Abdomen and Pelvis WO [...] unremarkable. Kidneys: Severe atrophy of the bilateral chilkoot kidney is without hydronephrosis. Right lower quadrant [...] unremarkable. Kidneys: Severe atrophy of the bilateral chilkoot kidney is without hydronephrosis. Right lower quadrant [...] effusion. [facility] Study observation (narrative) [facility] HEPATIC FUNCTION PANELon Albumin [Mass/Vol] 3.5 g/dL 3.5 - 5.0 g/dL [facility] ALP [Catalytic activity/Vol] 73 U/L 32 - 126 U/L [facility] ALT [Catalytic activity/Vol] 7 U/L Low 10 - 52 U/L [facility] AST [Catalytic activity/Vol] 25 U/L 10 - 39 U/L [facility] Bilirubin [Mass/Vol] 1.8 mg/dL High NINF - 1.5 mg/dL [facility] Bilirubin.direct [Mass/Vol] 0.3 mg/dL High NINF - 0.3 mg/dL [facility] Protein [Mass/Vol] 6.0 g/dL Low 6.4 - 8.3 g/dL [facility] Albumin [Mass/Vol] 3.5 g/dL Normal 3.5-5.0 [facility] Comment on above: Performed By: #### C TAVO MEDLEY MGO #### [facility] (DEFAULT) [address] [place] [address] ALP [Catalytic activity/Vol] 73 U/L Normal 32-126 [place] Comment on above: Performed By: #### C TAVO MEDLEY, MGO #### [facility] (DEFAULT) [address] [place] [address] 84039 ALT [Catalytic activity/Vol] 7 U/L Low 10-52 [place] Comment on above: Performed By: #### C HM7, HFP, MGO #### [facility] (DEFAULT) [address] [place] [address] 92526 AST [Catalytic activity/Vol] 25 U/L Normal 10-39 [place] Comment on above: Performed By: #### C HM7, HFP, MGO #### [facility] (DEFAULT) [address] [place] [address] 10746 Bilirubin [Mass/Vol] 1.8 mg/dL High <1.5 [place] Comment on above: Performed By: #### C HM7, HFP, MGO #### [facility] (DEFAULT) [address] [place] [address] 79866 Bilirubin.indirect [Mass/Vol] 0.3 mg/dL High <0.3 [place] Comment on above: Performed By: #### C HM7, HFP, MGO #### [facility] (DEFAULT) [address] [place] [address] 54536 Protein [Mass/Vol] 6.0 g/dL Low 6.4-8.3 [facility] Comment on above: Performed By: #### C HM7, HFP, MGO #### [facility] (DEFAULT) [address] [place] [address] 74347 HISTOPLASMA AND BLASTOMYCES ANTIGEN, ENZYME IMMUNOASSAY, SERMon 01-17-2024 Histoplasma/Blastomyce s Ag Result Not detected Normal Not Detected [place] Comment on above: Result Comment: No a ntigen from Histoplasma or Blastomyces detected. False negative results may occur depending on extent of disease, and/or site of infection. Repeat testing on a new specimen if clinically indicated. Performed By: #### P TPTT #### [facility] (DEFAULT) [address] [place] [address] 89610 Histoplasma/Blastomyce s Ag Value Not detected Normal [place] Comment on above: Result Comment: ADDITIONAL INFORMATION This test was developed and its performance characteristics determined by [facility] in a manner consistent with CLIA requirements. This test has not been cleared or approved by the U.S. Food and Drug Administration. Test Performed by: [facility] [address] [place] [address] [place] Operator: Rosendo Bose M.D. Ph.D.; CLIA# [id number] Performed By: #### P TPTT #### [facility] (DEFAULT) [address] [place] [address] MAGNESIUMon 01-17-2024 Interpretation and review of laboratory results Normal [facility] Magnesium [Mass/Vol] 1.7 mg/dL 1.6 - 2 .6 mg/dL [facility] Magnesium [Mass/Vol] 1.7 mg/dL Normal 1.6-2.6 [place] Comment on above: Performed By: #### C HM7, HFP, MGO #### [facility] (DEFAULT) [address] [place] [id number] No Panel Informationon 01-17 Interpretation and review of laboratory results Abnormal [facility] PT,INR,PTTon 01-17-2024 aPTT Coag (PPP) [Time] 29.[address] [facility] INR Coag (Bld) [Relative time] 1.1 {INR} 0.9 - 1.1 [facility] Interpretation and review of laboratory results Abnormal [facility] PT Coag (PPP) [Time] 14.5 s High [facility] aPTT Coag (Bld) [Time] 29.9 s Normal 24.0-34.3 [facility] Comment on above: Performed By: #### P TPTT #### [facility] (DEFAULT) [address] [place] [address] 05780 INR Coag (PPP) [Relative time] 1.1 {INR} Normal 0.9-1.1 [place] Comment on above: Performed By: #### P TPTT #### [facility] (DEFAULT) [address] [place] [address] 81974 PT Coag (PPP) [Time] 14.5 s High 11.9-14.2 [place] Comment on above: Performed By: #### P TPTT #### [facility] (DEFAULT) [address] [place] [address] 04726 B-TYPE NATRIURETIC PEPTIDE ( BRAIN)on 01-16-2024 Interpretation and review of laboratory results Abnormal [facility] Natriuretic peptide B (Bld) [Mass/Vol] 212 pg/mL High 0 - 100 pg/mL [facility] Natriuretic peptide B (Bld) [Mass/Vol] 212 pg/mL High 0-100 [place] Comment on above: Performed By: #### C HM7, HFP, MGO #### [facility] (DEFAULT) [address] [place] [address] 10938 CALCIUMon 01-16-2024 Calcium [Mass/Vol] 8.5 mg/dL Low 8.6 - 10. 5 mg/dL [facility] Calcium [Mass/Vol] 8.5 mg/dL Low 8.6-10.5 [facility] Comment on above: Performed By: #### E BVPCR #### [facility] (DEFAULT) [address] [place] [address] 61215 DARYL AURIS SCREEN BY PCRo n 01-16-2024 [...] or for research. Performed By: #### C ANDKEVIN AURIS SCREEN BY PCR #### [facility] (DEFAULT) [address] [address] CBC AND ELECTRONIC DIFFon Basophils (Bld) [#/Vol] K/uL 0.00 - 0.09 K/uL [facility] Basophils/100 WBC (Bld) 0.6 % [facility] Differential cell count method Nom (Bld) Electronic Differential [facility] Eosinophils (Bld) [#/Vol] 0.09 10*3/uL 0.00 - 0.48 K/uL [facility] Eosinophils/100 WBC (Bld) 2.5 % [facility] Erythrocyte distribution width (RBC) [Ratio] 14.0 % 10.9 - 14.3 % [facility] Hematocrit (Bld) [Volume fraction] 37.4 % Low 39.6 - 48.8 % [facility] Hemoglobin (Bld) [Mass/Vol] 12.1 g/dL Low 13.4 - 16.8 g/dL [facility] Immature granulocytes (Bld) [#/Vol] K/uL NINF - 0.07 K/uL [facility] Immature granulocytes/100 WBC (Bld) 0.3 % [facility] Interpretation and review of laboratory results Abnormal [facility] Lymphocytes (Bld) [#/Vol] 1.16 10*3/uL 0.83 - 3.57 K/uL [facility] Lymphocytes/100 WBC (Bld) 32.0 % [facility] MCH (RBC) [Entitic mass] 28.4 pg 26.1 - 33.3 pg [facility] MCHC (RBC) [Mass/Vol] 32.4 g/dL 31.9 - 36.5 g/dL [facility] MCV (RBC) [Entitic vol] 87.8 fL 79.0 - 94.5 fL [facility] Monocytes (Bld) [#/Vol] 0.43 10*3/uL 0.24 - 0.93 K/uL [facility] Monocytes/100 WBC (Bld) 11.9 % [facility] Neutrophils (Bld) [#/Vol] 1.91 10*3/uL 1.57 - 6.19 K/uL [facility] Nucleated RBC/100 WBC (Bld) [Ratio] 0.0 % NINF [facility] Platelet mean volume (Bld) [Entitic vol] 10.1 fL 8.7 - 12.3 fL [facility] Platelets (Bld) [#/Vol] 155 10*3/uL 146 - 337 K/uL [facility] RBC (Bld) [#/Vol] 4.26 10*6/uL Low [facility] Segmented neutrophils/100 WBC (Bld) 52.7 % [facility] WBC (Bld) [#/Vol] 3.62 10*3/uL Low 3.73 - 10. 10 K/uL [facility] Abs Baso Auto < Normal 0.00-0.09 [place] Comment on above: Performed By: #### Chinedu HMJesisca, HFP, MGO #### [facility] (DEFAULT) [address] [place] [address] 70854 Basophils/100 WBC (Bld) 0.6 % Normal [place] Comment on above: Performed By: #### Chinedu HM7, HFP, MGO #### [facility] (DEFAULT) [address] [place] [address] 62089 DIFF STATUS Electronic Differential Normal [place] Comment on above: Performed By: #### Chinedu HM7, HFP, MGO #### [facility] (DEFAULT) [address] [address] [address] Eosinophils (Bld) [#/Vol] 0.09 10*3/uL Normal 0.00-0.48 [place] Comment on above: Performed By: #### Chinedu HM7, HFP, MGO #### [facility] (DEFAULT) [address] [place] [address] 80123 Eosinophils/100 WBC (Bld) 2.5 % Normal [place] Comment on above: Performed By: #### C HM7, HFP, MGO #### [facility] (DEFAULT) [address] [place] [address] 20936 Hematocrit (Bld) [Volume fraction] 37.4 % Low 39.6-48.8 [place] Comment on above: Performed By: #### C HM7, HFP, MGO #### [facility] (DEFAULT) [address] [place] [address] 60762 Hemoglobin (Bld) [Mass/Vol] 12.1 g/dL Low 13.4-16.8 [place] Comment on above: Performed By: #### C HM7, HFP, MGO #### [facility] (DEFAULT) [address] [place] [address] 56331 Immature Grans % 0.3 % Normal [facility] Comment on above: Performed By: #### C HM7, HFP, MGO #### [facility] (DEFAULT) [address] [place] [address] 18221 Immature Grans Absolute < Normal <=0.07 [place] Comment on above: Performed By: #### C HM7, HFP, MGO #### [facility] (DEFAULT) [address] [place] [address] 63610 Lymphocytes (Bld) [#/Vol] 1.16 10*3/uL Normal 0.83-3.57 [place] Comment on above: Performed By: #### C HM7, HFP, MGO #### [facility] (DEFAULT) [address] [place] [address] 94223 Lymphocytes/100 WBC (Bld) 32.0 % Normal [place] Comment on above: Performed By: #### C HM7, HFP, MGO #### [facility] (DEFAULT) [address] [place] [address] 74826 MCV (RBC) [Entitic vol] 87.8 fL Normal 79.0-94.5 [place] Comment on above: Performed By: #### C HM7, HFP, MGO #### [facility] (DEFAULT) [address] [place] [address] 52703 Mean Cell Hgb 28.4 pg Normal 26.1-33.3 [place] Comment on above: Performed By: #### C HM7, HFP, MGO #### [facility] (DEFAULT) [address] [place] [address] 14518 Mean Cell Hgb Conc 32.4 g/dL Normal 31.9-36.5 [facility] Comment on above: Performed By: #### C HM7, HFP, MGO #### [facility] (DEFAULT) [address] [place] [address] 99790 Monocytes (Bld) [#/Vol] 0.43 10*3/uL Normal 0.24-0.93 [place] Comment on above: Performed By: #### C HM7, HFP, MGO #### [facility] (DEFAULT) [address] [place] [address] 81819 Monocytes/100 WBC (Bld) 11.9 % Normal [place] Comment on above: Performed By: #### C HM7, HFP, MGO #### [facility] (DEFAULT) [address] [place] [address] 46064 Nucleated RBC 0.0 /100 WBC Normal <=0.2 [facility] Comment on above: Performed By: #### C HM7, HFP, MGO #### [facility] (DEFAULT) [address] [place] [address] 79572 Platelet mean volume (Bld) [Entitic vol] 10.1 fL Normal 8.7-12.3 [place] Comment on above: Performed By: #### C HM7, HFP, MGO #### [facility] (DEFAULT) [address] [place] [address] 29851 Platelets (Bld) [#/Vol] 155 10*3/uL Normal 146-337 [place] Comment on above: Performed By: #### C HM7, HFP, MGO #### [facility] (DEFAULT) [address] [place] [address] 89774 RBC (Bld) [#/Vol] 4.26 10*6/uL Low 4.38-5.83 [place] Comment on above: Performed By: #### C HM7, HFP, MGO #### [facility] (DEFAULT) [address] [place] [address] 01684 RBC Distribution 14.0 % Normal 10.9-14.3 [facility] Comment on above: Performed By: #### Chinedu HM7, HFP, MGO #### [facility] (DEFAULT) [address] [place] [address] 17765 Segs + Bands Auto 52.7 % Normal [facility] Comment on above: Performed By: #### Chinedu HM7, HFP, MGO #### [facility] (DEFAULT) [address] [place] [address] 23118 Segs + Bands,Absolute Auto 1.91 K/uL Normal 1.57-6.19 [place] Comment on above: Performed By: #### Chinedu HM7, HFP, MGO #### [facility] (DEFAULT) [address] [place] [address] 31277 WBC (Bld) [#/Vol] 3.62 10*3/uL Low 3.73-10.10 [place] Comment on above: Performed By: #### Chinedu HM7, HFP, MGO #### [facility] (DEFAULT) [address] [place] [address] 66202 CHEM 7 (LYTES,BUN,CREA,GLUC) on 01-16-2024 Anion gap [Moles/Vol] 11 mmol/L 7 - 17 mmol/L [facility] Chloride [Moles/Vol] 108 mmol/L 98 - 10 8 mmol/L [facility] CO2 [Moles/Vol] 24 mmol/L 21 - 31 mmol/L [facility] Creatinine [Mass/Vol] 1.04 mg/dL 0.70 - 1.30 mg/dL [facility] eGFR, CKD-EPI, Male 86 - PINF [facility] Comment on above: Reported eGFR is bas ed on the CKD-EPI 2020 equation using creatinine, age, and sex. Glucose [Mass/Vol] 95 mg/dL 70 - 99 mg/dL [facility] Osmolality Calc [Osmolality] 293 [facility] Potassium [Moles/Vol] 4.0 mmol/L 3.5 - 5.0 mmol/L [facility] Sodium [Moles/Vol] 139 mmol/L 135 - 145 mmol/L [facility] Urea nitrogen [Mass/Vol] 19 mg/dL 7 - 25 mg/dL [facility] Urea nitrogen/Creatinine [Mass ratio] 18 mg/mg [facility] Anion gap [Moles/Vol] 11 mmol/L Normal 7-17 [facility] Comment on above: Performed By: #### E BVPCR #### [facility] (DEFAULT) [address] [place] [address] 14576 Chloride [Moles/Vol] 108 mmol/L Normal 98-108 [place] Comment on above: Performed By: #### E BVPCR #### [facility] (DEFAULT) [address] [place] [address]29 CO2 [Moles/Vol] 24 mmol/L Normal 21-31 [facility] Comment on above: Performed By: #### E BVPCR #### [facility] (DEFAULT) [address] [place] [address] 25810 Creatinine [Mass/Vol] 1.04 mg/dL Normal 0.70-1.30 [facility] Comment on above: Performed By: #### E BVPCR #### [facility] (DEFAULT) [address] [place] [address] 83954 GFR/1.73 sq M.predicted among non-blacks MDRD (S/P/Bld) [Vol rate/Area] 86 mL/min/{1.73_m2} Normal >=60 [place] Comment on above: Result Comment: Repo rted eGFR is based on the CKD-EPI 2020 equation using creatinine, age, and sex. Performed By: #### E BVPCR #### [facility] (DEFAULT) [address] [place] [address] 06292 Glucose [Mass/Vol] 95 mg/dL Normal 70-99 [facility] Comment on above: Performed By: #### E BVPCR #### [facility] (DEFAULT) [address] [place] [address] 02523 Osmolality [Osmolality] 293 mosm/kg Normal 278-305 [place] Comment on above: Performed By: #### E BVPCR #### [facility] (DEFAULT) [address] [place] [address] 93130 Potassium [Moles/Vol] 4.0 mmol/L Normal 3.5-5.0 [facility] Comment on above: Performed By: #### E BVPCR #### [facility] (DEFAULT) [address] [place] [address] 03792 Sodium [Moles/Vol] 139 mmol/L Normal 135-145 [facility] Comment on above: Performed By: #### E BVPCR #### [facility] (DEFAULT) [address] [place] [address] 57231 Urea nitrogen [Mass/Vol] 19 mg/dL Normal 7-25 [place] Comment on above: Performed By: #### E BVPCR #### [facility] (DEFAULT) [address] [place] [address] 50308 Urea nitrogen/Creatinine [Mass ratio] 18 mg/mg Normal [place] Comment on above: Performed By: #### E BVPCR #### [facility] (DEFAULT) [address] [place] [address] 66867 D-DIMER,QUANTITATIVEOrdered By: Shaji Kelly on 01-16-2024 Fibrin D-dimer FEU (PPP) [Mass/Vol] 0.67 High NINF [facility] Comment on above: The D-Dimer assay is intended for use in conjuction with a clinical pretest probability (PTP) assessment model to exclude pulmonary embolism (PE) and as an aid in the diagnosis of Deep Vein Thrombosis (DVT) in outpatients suspected of PE or DVT. For the assay in use at [facility] [place] ([facility]), a cutoff of <0.50 mcg/mL [...] the assay in use at [facility] [place] ([facility]), a cutoff of <0.50 mcg/mL has a Negative Predictive Value of 99.7% for exclusion of DVT in low and moderate PTP patients. Performed By: #### C HM7, HFP, MGO #### [facility] (DEFAULT) [address] [place] [address] HEPATIC FUNCTION PANELon Albumin [Mass/Vol] 3.7 g/dL 3.5 - 5.0 g/dL [facility] ALP [Catalytic activity/Vol] 70 U/L 32 - 126 U/L [facility] ALT [Catalytic activity/Vol] 8 U/L Low 10 - 52 U/L [facility] AST [Catalytic activity/Vol] 21 U/L 10 - 39 U/L [facility] Bilirubin [Mass/Vol] 1.9 mg/dL High NINF - 1.5 mg/dL [facility] Bilirubin.direct [Mass/Vol] 0.4 mg/dL High NINF - 0.3 mg/dL [facility] Protein [Mass/Vol] 6.1 g/dL Low 6.4 - 8.3 g/dL [facility] Albumin [Mass/Vol] 3.7 g/dL Normal 3.5-5.0 [facility] Comment on above: Performed By: #### E BVPCR #### [facility] (DEFAULT) [address] [place] [address] 46761 ALP [Catalytic activity/Vol] 70 U/L Normal 32-126 [place] Comment on above: Performed By: #### E BVPCR #### [facility] (DEFAULT) [address] [place] [address] 6[address]10 ALT [Catalytic activity/Vol] 8 U/L Low 10-52 [place] Comment on above: Performed By: #### E BVPCR #### [facility] (DEFAULT) [address] [place] [address] 92848 AST [Catalytic activity/Vol] 21 U/L Normal 10-39 [place] Comment on above: Performed By: #### E BVPCR #### [facility] (DEFAULT) [address] [place] [address] 66859 Bilirubin [Mass/Vol] 1.9 mg/dL High <1.5 [place] Comment on above: Performed By: #### E BVPCR #### [facility] (DEFAULT) [address] [place] [address] 42550 Bilirubin.indirect [Mass/Vol] 0.4 mg/dL High <0.3 [place] Comment on above: Performed By: #### E BVPCR #### [facility] (DEFAULT) [address] [place] [address] 55556 Protein [Mass/Vol] 6.1 g/dL Low 6.4-8.3 [facility] Comment on above: Performed By: #### E BVPCR #### [facility] (DEFAULT) [address] [place] [address] 44267 MAGNESIUMon 01-16-2024 Magnesium [Mass/Vol] 1.7 mg/dL 1.6 - 2 .6 mg/dL [facility] Magnesium [Mass/Vol] 1.7 mg/dL Normal 1.6-2.6 [place] Comment on above: Performed By: #### E BVPCR #### [facility] (DEFAULT) [address] [place] [address] 51746 No Panel Informationon 01-16 Interpretation and review of laboratory results Abnormal [facility] Interpretation and review of laboratory results Normal [facility] PHOSPHATE, INORGANICon 01-16 Phosphate [Mass/Vol] 4.1 mg/dL 2.2 - 4 .6 mg/dL [facility] Phosphorous 4.1 mg/dL Normal 2.2-4.6 [place] Comment on above: Performed By: #### E BVPCR #### [facility] (DEFAULT) [address] [place] [address] 25964 PT,INR,PTTon 01-16-2024 aPTT Coag (PPP) [Time] 29.[address] [facility] INR Coag (Bld) [Relative time] 1.2 {INR} High 0.9 - 1.1 [facility] Interpretation and review of laboratory results Abnormal [facility] PT Coag (PPP) [Time] 14.9 s High [facility] aPTT Coag (Bld) [Time] 29.6 s Normal 24.0-34.3 [facility] Comment on above: Performed By: #### C TAVO MEDLEY MGO #### [facility] (DEFAULT) [address] [place] [address] 73954 INR Coag (PPP) [Relative time] 1.2 {INR} High 0.9-1.1 [place] Comment on above: Performed By: #### C TAVO MEDLEY, MGO #### [facility] (DEFAULT) [address] [place] [address] 30199 PT Coag (PPP) [Time] 14.9 s High 11.9-14.2 [place] Comment on above: Performed By: #### C TAVO MEDLEY, MGO #### [facility] (DEFAULT) [address] [place] [address] TACROLIMUS LEVEL, TROUGH (UT E DRUG LEVEL)Ordered By: Jimy Castillo on 01-16-2024 Interpretation and review of laboratory results Normal [facility] Tacrolimus (Bld) [Mass/Vol] 5.7 ng/mL Bone Marrow Transplant: 4.0-12.0, Therapeutic: 5.0-15.0 [facility] Method performed is a chemiluminescent microparticle immunoasssay on the [employer] i2000. The range is based on experience at [facility] and users should be aware that target concentrations vary widely depending on concomitant therapy, time post-transplant, and desired degree of immunosuppression. [facility] TACROLIMUS LEVEL, TROUGH (UT E DRUG LEVEL)on [...] chemiluminescent microparticle immunoasssay on the [employer] i2000.The range is based on experience at [facility] and users should be aware that target concentrations vary widely depending on concomitant therapy, time post-transplant, and desired degree of immunosuppression. Performed By: #### C TAVO MEDLEY, MGO #### [facility] (DEFAULT) [address] [place] [address] 10831 US ABDOMEN LIVER DOPPLERon 0 01-16-2024 US [...] effusion. Trace right upper quadrant ascites. Normal [place] US.doppler Abdominal vessels on 01-16-2024 [...] pleural effusion. Trace right upper quadrant ascites. [facility] Radiology Study observation (narrative) [facility] US.doppler Abdominal vessels Ordered By: Iona Duran on 01-16-2024 [facility] Work Phone: XR CHEST PA AND [...] Normal IMPRESSION: Moderate right pleural effusion. Normal [place] XR Chest PA and Lateralon [...] Normal IMPRESSION IMPRESSION: Moderate right pleural effusion. [facility] Radiology Study observation (narrative) [facility] XR Chest PA and LateralOrder ed By: Daisha Patterson on 01-16-2024 [facility] Work Phone: ALL CBC WITH AUTO DIFFon BASOPHILS ABSOLUTE AUTO 0.0 [facility] Basophils/100 WBC (Bld) 0.5 % 0.2 - 2.0 % [facility] Eosinophils/100 WBC (Bld) 2.8 % 0.9 - 7.0 % [facility] Erythrocyte distribution width (RBC) [Ratio] 13.8 % 11.0 - 15.0 % [facility] Hematocrit (Bld) [Volume fraction] 43.7 % 42.0 - 54.0 % [facility] Hemoglobin (Bld) [Mass/Vol] 14.0 g/dL 14.0 - 18.0 g/dL [facility] IMMATURE GRANULOCYTES ABS AUTO 0.01 [facility] Immature granulocytes/100 WBC (Bld) 0.3 % 0.0 - 0.5 % [facility] LYMPHOCYTES ABSOLUTE AUTO 1.5 [facility] Lymphocytes/100 WBC (Bld) 37.5 % 20.5 - 60.0 % [facility] MCH (RBC) [Entitic mass] 28.4 pg 25.9 - 34.0 pg [facility] MCHC (RBC) [Mass/Vol] 32.0 g/dL 29.9 - 35.2 g/dL [facility] MCV (RBC) [Entitic vol] 88.6 fL 80.0 - 94.0 fL [facility] MONOCYTES ABSOLUTE [facility]O 0.5 [facility] Monocytes/100 WBC (Bld) 11.9 % 1.7 - 12.0 % [facility] NEUTROPHILS ABSOLUTE AUTO 1.9 [facility] Neutrophils/100 WBC (Bld) 47.0 % 43.0 - 75.0 % [facility] Platelet mean volume (Bld) [Entitic vol] 10.3 fL 9.5 - 13.5 fL [facility] TBH EO # 0.1 [facility]H PLT 180 [facility] RBC 4.93 [facility] WBC 4.0 [facility] ALL CBC WITH AUTO DIFFon BASOPHILS ABSOLUTE AUTO 0.0 [facility] Basophils/100 WBC (Bld) 0.5 % 0.2 - 2.0 % [facility] Eosinophils/100 WBC (Bld) 2.6 % 0.9 - 7.0 % [facility] Erythrocyte distribution width (RBC) [Ratio] 13.5 % 11.0 - 15.0 % [facility] Hematocrit (Bld) [Volume fraction] 43.8 % 42.0 - 54.0 % [facility] Hemoglobin (Bld) [Mass/Vol] 14.0 g/dL 14.0 - 18.0 g/dL [facility] IMMATURE GRANULOCYTES ABS AUTO 0.00 [facility] Immature granulocytes/100 WBC (Bld) 0.0 % 0.0 - 0.5 % [facility] Interpretation and review of laboratory results Abnormal [facility] LYMPHOCYTES ABSOLUTE AUTO 1.8 [facility] Lymphocytes/100 WBC (Bld) 45.2 % 20.5 - 60.0 % [facility] MCH (RBC) [Entitic mass] 27.9 pg 25.9 - 34.0 pg [facility] MCHC (RBC) [Mass/Vol] 32.0 g/dL 29.9 - 35.2 g/dL [facility] MCV (RBC) [Entitic vol] 87.4 fL 80.0 - 94.0 fL [facility] MONOCYTES ABSOLUTE AUTO 0.4 [facility] Monocytes/100 WBC (Bld) 9.6 % 1.7 - 12.0 % [facility] NEUTROPHILS ABSOLUTE AUTO 1.6 [facility] Neutrophils/100 WBC (Bld) 42.1 % Low 43.0 - 75.0 % [facility] Platelet mean volume (Bld) [Entitic vol] 9.8 fL 9.5 - 13.5 fL [facility] TBH EO # 0.1 [facility] PLT 180 [facility] RBC 5.01 [facility] WBC 3.9 Low [facility] CHEM 7 (LYTES,BUN,CREA,GLUC) on 09-11-2023 Anion gap [Moles/Vol] 13 mmol/L 7 - 17 mmol/L [facility] Chloride [Moles/Vol] 111 mmol/L High 98 - 10 8 mmol/L [facility] CO2 [Moles/Vol] 20 mmol/L Low 21 - 31 mmol/L [facility] Creatinine [Mass/Vol] 1.13 mg/dL 0.70 - 1.30 mg/dL [facility] eGFR, CKD-EPI, Male 78 - PINF [facility] Glucose [Mass/Vol] 109 mg/dL High 70 - 99 mg/dL [facility] Interpretation and review of laboratory results Abnormal [facility] Osmolality Calc [Osmolality] 295 [facility] Potassium [Moles/Vol] 4.3 mmol/L 3.5 - 5.0 mmol/L [facility] Sodium [Moles/Vol] 140 mmol/L 135 - 145 mmol/L [facility] Urea nitrogen [Mass/Vol] 16 mg/dL 7 - 25 mg/dL [facility] Urea nitrogen/Creatinine [Mass ratio] 14 mg/mg [facility] GLUCOSE POCon 09-11-2023 Glucose [Mass/Vol] 108 mg/dL High 70 - 99 mg/dL [facility] Interpretation and review of laboratory results Abnormal [facility] POC Sample Type CAPBL [facility] Legionella sp identified Org specific cx Nom (Unsp spec)on 09-11-2023 Bacteria identified Cx Nom (Unsp spec) NO GROWTH DAY 7 OF 7 [facility] MAGNESIUMon 09-11-2023 Interpretation and review of laboratory results Normal [facility] Magnesium [Mass/Vol] 1.6 mg/dL 1.6 - 2 .6 mg/dL [facility] No Panel Informationon 09-11 [facility] TACROLIMUS LEVEL, TROUGH (UT E DRUG LEVEL)on 09-11-2023 Interpretation and review of laboratory results Normal [facility] Tacrolimus (Bld) [Mass/Vol] 11.5 ng/mL [facility] CBC,PLATELETSon 09-10-2023 Erythrocyte distribution width (RBC) [Ratio] 13.9 % 10.9 - 14.3 % [facility] Hematocrit (Bld) [Volume fraction] 40.0 % 39.6 - 48.8 % [facility] Hemoglobin (Bld) [Mass/Vol] 12.7 g/dL Low 13.4 - 16.8 g/dL [facility] Interpretation and review of laboratory results Abnormal [facility] MCH (RBC) [Entitic mass] 27.3 pg 26.1 - 33.3 pg [facility] MCHC (RBC) [Mass/Vol] 31.8 g/dL Low 31.9 - 36.5 g/dL [facility] MCV (RBC) [Entitic vol] 86.0 fL 79.0 - 94.5 fL [facility] Platelet mean volume (Bld) [Entitic vol] 9.5 fL 8.7 - 12.3 fL [facility] Platelets (Bld) [#/Vol] 225 10*3/uL 146 - 337 K/uL [facility] RBC (Bld) [#/Vol] 4.65 10*6/uL [facility] WBC (Bld) [#/Vol] 6.52 10*3/uL 3.73 - 10. 10 K/uL [facility] CHEM 7 (LYTES,BUN,CREA,GLUC) on 09-10-2023 Anion gap [Moles/Vol] 13 mmol/L 7 - 17 mmol/L [facility] Chloride [Moles/Vol] 111 mmol/L High 98 - 10 8 mmol/L [facility] CO2 [Moles/Vol] 20 mmol/L Low 21 - 31 mmol/L [facility] Creatinine [Mass/Vol] 1.27 mg/dL 0.70 - 1.30 mg/dL [facility] eGFR, CKD-EPI, Male 68 - PINF [facility] Glucose [Mass/Vol] 100 mg/dL High 70 - 99 mg/dL [facility] Osmolality Calc [Osmolality] 293 [facility] Potassium [Moles/Vol] 4.4 mmol/L 3.5 - 5.0 mmol/L [facility] Sodium [Moles/Vol] 140 mmol/L 135 - 145 mmol/L [facility] Urea nitrogen [Mass/Vol] 12 mg/dL 7 - 25 mg/dL [facility] Urea nitrogen/Creatinine [Mass ratio] 9 mg/mg [facility] HEPATIC FUNCTION PANELon Albumin [Mass/Vol] 3.3 g/dL Low 3.5 - 5.0 g/dL [facility] ALP [Catalytic activity/Vol] 143 U/L High 32 - 126 U/L [facility] ALT [Catalytic activity/Vol] 28 U/L 10 - 52 U/L [facility] AST [Catalytic activity/Vol] 29 U/L 10 - 39 U/L [facility] Bilirubin [Mass/Vol] 0.9 mg/[facility]/dL [facility] Bilirubin.direct [Mass/Vol] 0.2 mg/dL [facility] 0.[facility] mg/dL [facility] Protein [Mass/Vol] 6.8 g/dL 6.4 - 8.3 g/dL [facility] MAGNESIUMon 09-10-2023 Interpretation and review of laboratory results Normal [facility] Magnesium [Mass/Vol] 1.9 mg/dL 1.6 - 2 .6 mg/dL [facility] No Panel Informationon 09-10 Interpretation and review of laboratory results Abnormal [facility] TACROLIMUS LEVEL, TROUGH (UT E DRUG LEVEL)Ordered By: Jimy Castillo on 09-10-2023 Interpretation and review of laboratory results Normal [facility] Tacrolimus (Bld) [Mass/Vol] 11.8 ng/mL [facility] CHEM 7 (LYTES,BUN,CREA,GLUC) on 09-09-2023 Anion gap [Moles/Vol] 14 mmol/L 7 - 17 mmol/L [facility] Chloride [Moles/Vol] 113 mmol/L High 98 - 10 8 mmol/L [facility] CO2 [Moles/Vol] 18 mmol/L Low 21 - 31 mmol/L [facility] Creatinine [Mass/Vol] 1.03 mg/dL 0.70 - 1.30 mg/dL [facility] eGFR, CKD-EPI, Male 87 - PINF [facility] Glucose [Mass/Vol] 106 mg/dL High 70 - 99 mg/dL [facility] Interpretation and review of laboratory results Abnormal [facility] Osmolality Calc [Osmolality] 294 [facility] Potassium [Moles/Vol] 4.0 mmol/L 3.5 - 5.0 mmol/L [facility] Sodium [Moles/Vol] 141 mmol/L 135 - 145 mmol/L [facility] Urea nitrogen [Mass/Vol] 10 mg/dL 7 - 25 mg/dL [facility] Urea nitrogen/Creatinine [Mass ratio] 10 mg/mg [facility] MAGNESIUMon 09-09-2023 Magnesium [Mass/Vol] 1.6 mg/dL 1.6 - 2 .6 mg/dL [facility] No Panel Informationon 09-09 Interpretation and review of laboratory results Normal [facility] PHOSPHATE, INORGANICon 09-09 Phosphate [Mass/Vol] 3.8 mg/dL 2.2 - 4 .6 mg/dL [facility] TACROLIMUS LEVEL, TROUGH (UT E DRUG LEVEL)on 09-09-2023 Interpretation and review of laboratory results Normal [facility] Tacrolimus (Bld) [Mass/Vol] 9.2 ng/mL [facility] CBC,PLATELETSon 09-08-2023 Erythrocyte distribution width (RBC) [Ratio] 13.6 % 10.9 - 14.3 % [facility] Hematocrit (Bld) [Volume fraction] 36.1 % Low 39.6 - 48.8 % [facility] Hemoglobin (Bld) [Mass/Vol] 11.6 g/dL Low 13.4 - 16.8 g/dL [facility] Interpretation and review of laboratory results Abnormal [facility] MCH (RBC) [Entitic mass] 27.4 pg 26.1 - 33.3 pg [facility] MCHC (RBC) [Mass/Vol] 32.1 g/dL 31.9 - 36.5 g/dL [facility] MCV (RBC) [Entitic vol] 85.1 fL 79.0 - 94.5 fL [facility] Platelet mean volume (Bld) [Entitic vol] 9.5 fL 8.7 - 12.3 fL [facility] Platelets (Bld) [#/Vol] 182 10*3/uL 146 - 337 K/uL [facility] RBC (Bld) [#/Vol] 4.24 10*6/uL Low [facility] WBC (Bld) [#/Vol] 4.59 10*3/uL 3.73 - 10. 10 K/uL [facility] CHEM 7 (LYTES,BUN,CREA,GLUC) on 09-08-2023 Anion gap [Moles/Vol] 12 mmol/L 7 - 17 mmol/L [facility] Chloride [Moles/Vol] 113 mmol/L High 98 - 10 8 mmol/L [facility] CO2 [Moles/Vol] 21 mmol/L 21 - 31 mmol/L [facility] Creatinine [Mass/Vol] 1.14 mg/dL 0.70 - 1.30 mg/dL [facility] eGFR, CKD-EPI, Male 77 - PINF [facility] Glucose [Mass/Vol] 107 mg/dL High 70 - 99 mg/dL [facility] Osmolality Calc [Osmolality] 296 [facility] Potassium [Moles/Vol] 3.9 mmol/L 3.5 - 5.0 mmol/L [facility] Sodium [Moles/Vol] 142 mmol/L 135 - 145 mmol/L [facility] Urea nitrogen [Mass/Vol] 11 mg/dL 7 - 25 mg/dL [facility] Urea nitrogen/Creatinine [Mass ratio] 10 mg/mg [facility] HEPATIC FUNCTION PANELon Albumin [Mass/Vol] 2.9 g/dL Low 3.5 - 5.0 g/dL [facility] ALP [Catalytic activity/Vol] 133 U/L High 32 - 126 U/L [facility] ALT [Catalytic activity/Vol] 23 U/L 10 - 52 U/L [facility] AST [Catalytic activity/Vol] 23 U/L 10 - 39 U/L [facility] Bilirubin [Mass/Vol] 0.8 mg/dL NINF - 1.5 mg/dL [facility] Bilirubin.direct [Mass/Vol] 0.2 mg/dL NINF - 0.3 mg/dL [facility] Protein [Mass/Vol] 5.9 g/dL Low 6.4 - 8.3 g/dL [facility] MAGNESIUMon 09-08-2023 Interpretation and review of laboratory results Normal [facility] Magnesium [Mass/Vol] 1.8 mg/dL 1.6 - 2 .6 mg/dL [facility] No Panel Informationon 09-08 Interpretation and review of laboratory results Abnormal [facility] PHOSPHATE, INORGANICon 09-08 Interpretation and review of laboratory results Normal [facility] Phosphate [Mass/Vol] 4.1 mg/dL 2.2 - 4 .6 mg/dL [facility] TACROLIMUS LEVEL, TROUGH (UT E DRUG LEVEL)on 09-08-2023 Interpretation and review of laboratory results Normal [facility] Tacrolimus (Bld) [Mass/Vol] 8.5 ng/mL [facility] CBC,PLATELETSon 09-07-2023 Erythrocyte distribution width (RBC) [Ratio] 13.5 % 10.9 - 14.3 % [facility] [facility] Hematocrit (Bld) [Volume fraction] 37.1 % Low 39.6 - 48.8 % [facility] Hemoglobin (Bld) [Mass/Vol] 11.9 g/dL Low 13.4 - 16.8 g/dL [facility] Interpretation and review of laboratory results Abnormal [facility] MCH (RBC) [Entitic mass] 27.7 pg 26.1 - 33.3 pg [facility] MCHC (RBC) [Mass/Vol] 32.1 g/dL 31.9 - 36.5 g/dL [facility] MCV (RBC) [Entitic vol] 86.5 fL 79.0 - 94.5 fL [facility] Platelet mean volume (Bld) [Entitic vol] 9.6 fL 8.7 - 12.3 fL [facility] Platelets (Bld) [#/Vol] 176 10*3/uL 146 - 337 K/uL [facility] RBC (Bld) [#/Vol] 4.29 10*6/uL Low [facility] WBC (Bld) [#/Vol] 4.10 10*3/uL 3.73 - 10. 10 K/uL [facility] CHEM 7 (LYTES,BUN,CREA,GLUC) on 09-07-2023 Anion gap [Moles/Vol] 13 mmol/L 7 - 17 mmol/L [facility] Chloride [Moles/Vol] 113 mmol/L High 98 - 10 8 mmol/L [facility] CO2 [Moles/Vol] 19 mmol/L Low 21 - 31 mmol/L [facility] Creatinine [Mass/Vol] 1.22 mg/dL 0.70 - 1.30 mg/dL [facility] eGFR, CKD-EPI, Male 71 - PINF [facility] Glucose [Mass/Vol] 107 mg/dL High 70 - 99 mg/dL [facility] Osmolality Calc [Osmolality] 295 [facility] Potassium [Moles/Vol] 3.9 mmol/L 3.5 - 5.0 mmol/L [facility] Sodium [Moles/Vol] 141 mmol/L 135 - 145 mmol/L [facility] Urea nitrogen [Mass/Vol] 13 mg/dL 7 - 25 mg/dL [facility] Urea nitrogen/Creatinine [Mass ratio] 11 mg/mg [facility] HEPATIC FUNCTION PANELon Albumin [Mass/Vol] 2.9 g/dL Low 3.5 - 5.0 g/dL [facility] ALP [Catalytic activity/Vol] 111 U/L 32 - 126 U/L [facility] ALT [Catalytic activity/Vol] 18 U/L 10 - 52 U/L [facility] AST [Catalytic activity/Vol] 23 U/L 10 - 39 U/L [facility] Bilirubin [Mass/Vol] 0.8 mg/dL NINF - 1.5 mg/dL [facility] Bilirubin.direct [Mass/Vol] 0.3 mg/dL High NINF - 0.3 mg/dL [facility] Protein [Mass/Vol] 6.0 g/dL Low 6.4 - 8.3 g/dL [facility] MAGNESIUMon 09-07-2023 Interpretation and review of laboratory results Normal [facility] Magnesium [Mass/Vol] 1.7 mg/dL 1.6 - 2 .6 mg/dL [facility] No Panel Informationon 09-07 Interpretation and review of laboratory results Abnormal [facility] PHOSPHATE, INORGANICon 09-07 Interpretation and review of laboratory results Normal [facility] Phosphate [Mass/Vol] 4.4 mg/dL 2.2 - 4 .6 mg/dL [facility] TACROLIMUS LEVEL, TROUGH (UT E DRUG LEVEL)Ordered By: Elizabeth Maldonado on 09-07-2023 Interpretation and review of laboratory results Normal [facility] Tacrolimus (Bld) [Mass/Vol] 7.8 ng/mL [facility] CBC,PLATELETSon 09-06-2023 Erythrocyte distribution width (RBC) [Ratio] 13.4 % 10.9 - 14.3 % [facility] Hematocrit (Bld) [Volume fraction] 38.4 % Low 39.6 - 48.8 % [facility] Hemoglobin (Bld) [Mass/Vol] 11.9 g/dL Low 13.4 - 16.8 g/dL [facility] Interpretation and review of laboratory results Abnormal [facility] MCH (RBC) [Entitic mass] 26.6 pg 26.1 - 33.3 pg [facility] MCHC (RBC) [Mass/Vol] 31.0 g/dL Low 31.9 - 36.5 g/dL [facility] MCV (RBC) [Entitic vol] 85.9 fL 79.0 - 94.5 fL [facility] Platelet mean volume (Bld) [Entitic vol] 9.7 fL 8.7 - 12.3 fL [facility] Platelets (Bld) [#/Vol] 181 10*3/uL 146 - 337 K/uL [facility] RBC (Bld) [#/Vol] 4.47 10*6/uL [facility] WBC (Bld) [#/Vol] 4.41 10*3/uL 3.73 - 10. 10 K/uL [facility] CHEM 7 (LYTES,BUN,CREA,GLUC) on 09-06-2023 Anion gap [Moles/Vol] 14 mmol/L 7 - 17 mmol/L [facility] Chloride [Moles/Vol] 109 mmol/L High 98 - 10 8 mmol/L [facility] CO2 [Moles/Vol] 19 mmol/L Low 21 - 31 mmol/L [facility] Creatinine [Mass/Vol] 1.26 mg/dL 0.70 - 1.30 mg/dL [facility] eGFR, CKD-EPI, Male 69 - PINF [facility] Glucose [Mass/Vol] 114 mg/dL High 70 - 99 mg/dL [facility] Osmolality Calc [Osmolality] 291 [facility] Potassium [Moles/Vol] 4.1 mmol/L 3.5 - 5.0 mmol/L [facility] Sodium [Moles/Vol] 138 mmol/L 135 - 145 mmol/L [facility] Urea nitrogen [Mass/Vol] 16 mg/dL 7 - 25 mg/dL [facility] Urea nitrogen/Creatinine [Mass ratio] 13 mg/mg [facility] HEPATIC FUNCTION PANELon Albumin [Mass/Vol] 3.0 g/dL Low 3.5 - 5.0 g/dL [facility] ALP [Catalytic activity/Vol] 115 U/L 32 - 126 U/L [facility] ALT [Catalytic activity/Vol] 25 U/L 10 - 52 U/L [facility] AST [Catalytic activity/Vol] 31 U/L 10 - 39 U/L [facility] Bilirubin [Mass/Vol] 1.0 mg/dL NINF - 1.5 mg/dL [facility] Bilirubin.direct [Mass/Vol] 0.3 mg/dL High NINF - 0.3 mg/dL [facility] Protein [Mass/Vol] 6.3 g/dL Low 6.4 - 8.3 g/dL [facility] MAGNESIUMon 09-06-2023 Interpretation and review of laboratory results Normal [facility] Magnesium [Mass/Vol] 2.0 mg/dL 1.6 - 2 .6 mg/dL [facility] No Panel Informationon 09-06 Interpretation and review of laboratory results Abnormal [facility] TACROLIMUS LEVEL, TROUGH (UT E DRUG LEVEL)on 09-06-2023 Interpretation and review of laboratory results Normal [facility] Tacrolimus (Bld) [Mass/Vol] 6.7 ng/mL [facility] CBC,PLATELETSon 09-05-2023 Erythrocyte distribution width (RBC) [Ratio] 13.5 % 10.9 - 14.3 % [facility] Hematocrit (Bld) [Volume fraction] 35.6 % Low 39.6 - 48.8 % [facility] Hemoglobin (Bld) [Mass/Vol] 11.4 g/dL Low 13.4 - 16.8 g/dL [facility] Interpretation and review of laboratory results Abnormal [facility] MCH (RBC) [Entitic mass] 27.5 pg 26.1 - 33.3 pg [facility] MCHC (RBC) [Mass/Vol] 32.0 g/dL 31.9 - 36.5 g/dL [facility] MCV (RBC) [Entitic vol] 86.0 fL 79.0 - 94.5 fL [facility] Platelet mean volume (Bld) [Entitic vol] 10.0 fL 8.7 - 12.3 fL [facility] Platelets (Bld) [#/Vol] 170 10*3/uL 146 - 337 K/uL [facility] RBC (Bld) [#/Vol] 4.14 10*6/uL Low [facility] WBC (Bld) [#/Vol] 4.24 10*3/uL 3.73 - 10. 10 K/uL [facility] CHEM 7 (LYTES,BUN,CREA,GLUC) on 09-05-2023 Anion gap [Moles/Vol] 12 mmol/L 7 - 17 mmol/L [facility] Chloride [Moles/Vol] 107 mmol/L 98 - 10 8 mmol/L [facility] CO2 [Moles/Vol] 20 mmol/L Low 21 - 31 mmol/L [facility] Creatinine [Mass/Vol] 1.43 mg/dL High 0.70 - 1.30 mg/dL [facility] eGFR, CKD-EPI, Male 60 Low - PINF [facility] Glucose [Mass/Vol] 111 mg/dL High 70 - 99 mg/dL [facility] Osmolality Calc [Osmolality] 286 [facility] Potassium [Moles/Vol] 4.2 mmol/L 3.5 - 5.0 mmol/L [facility] Sodium [Moles/Vol] 135 mmol/L 135 - 145 mmol/L [facility] Urea nitrogen [Mass/Vol] 18 mg/dL 7 - 25 mg/dL [facility] Urea nitrogen/Creatinine [Mass ratio] 13 mg/mg [facility] CONTINUOUS CARDIAC MONITORIN G STRIPon 09-05-2023 [facility] HEPATIC FUNCTION PANELon Albumin [Mass/Vol] 2.8 g/dL Low 3.5 - 5.0 g/dL [facility] ALP [Catalytic activity/Vol] 103 U/L 32 - 126 U/L [facility] ALT [Catalytic activity/Vol] 26 U/L 10 - 52 U/L [facility] AST [Catalytic activity/Vol] 38 U/L 10 - 39 U/L [facility] Bilirubin [Mass/Vol] 0.9 mg/dL NINF - 1.5 mg/dL [facility] Bilirubin.direct [Mass/Vol] 0.1 mg/dL NINF - 0.3 mg/dL [facility] Protein [Mass/Vol] 6.1 g/dL Low 6.4 - 8.3 g/dL [facility] HISTOPLASMA ANTIGEN, FLUIDon 09-05-2023 FH SOURCE BAL RML [facility] Histo FLD interpretation Negative [facility] Histoplasma Antigen, FLUID Not detected ng/mL [facility] HISTOPLASMA CAPSULATUM/BLAST OMYCES SPECIES,PCR FLUIDon 09-05-2023 HISTO/BLASTO RESULT Negative Not Applicable [facility] Specimen source Nom (Unsp spec) BAL RML [facility] IMMUNOPHENOTYPING, TISSUE/FL UIDon 09-05-2023 BKR DX CODE Use Ordering [facility] Flow Interpretation See Comment [facility] Flow Interpreted by: Yossi Perla MD, PhD [facility] MAGNESIUMon 09-05-2023 Interpretation and review of laboratory results Normal [facility] Magnesium [Mass/Vol] 1.7 mg/dL 1.6 - 2 .6 mg/dL [facility] No Panel Informationon 09-05 Interpretation and review of laboratory results Abnormal [facility] TACROLIMUS LEVEL, TROUGH (UT E DRUG LEVEL)Ordered By: Raymundo Mehta on 09-05-2023 Interpretation and review of laboratory results Normal [facility] Tacrolimus (Bld) [Mass/Vol] 5.3 ng/mL [facility] ARTERIAL BLOOD GAS (FULL GOSS EL)on 09-04-2023 Base excess Calc (Bld) [Moles/Vol] -1.2000 mmol/L -3.0 - 3.0 mmol/L [facility] Calcium.ionized (Bld) [Mass/Vol] 4.79 mg/dL 4.60 - 5.30 mg/dL [facility] Carboxyhemoglobin (Bld) [Mass fraction] 0.7 % NINF - 1.5 % [facility] CO2 (Bld) [Partial pressure] 30 mm[Hg] Low [facility] Glucose [Mass/Vol] 159 mg/dL High 70 - 99 mg/dL [facility] HCO3 (Bld) [Moles/Vol] 22 mmol/L 22 - 28 mmol/L [facility] Hematocrit (Bld) [Volume fraction] 38.0 % Low 40.2 - 50.4 % [facility] Hemoglobin (Bld) [Mass/Vol] 12.6 g/dL Low 13.4 - 16.8 g/dL [facility] Interpretation and review of laboratory results Abnormal [facility] Lactate [Moles/Vol] 2.0 mmol/L High 0.5 - 1. 6 mmol/L [facility] Methemoglobin (Bld) [Mass fraction] 0.0 % NINF - 1.5 % [facility] Oxygen (Bld) [Partial pressure] 62 mm[Hg] Low [facility] Oxygen saturation in Blood 92 % Low 94 - 98 % [facility] Oxyhemoglobin 91 % Low 94 - 98 % [facility] pH (Bld) 7.48 [pH] High 7.35 - 7.45 [facility] Potassium [Moles/Vol] 4.2 mmol/L 3.5 - 5.0 mmol/L [facility] Sodium [Moles/Vol] 130 mmol/L Low 135 - 145 mmol/L [facility] Specimen source Nom (Unsp spec) Arterial [facility] Bacteria identified Respirat ory culture Nom (Unsp spec)on 09-04-2023 Bacteria identified Cx Nom (Unsp spec) NO GROWTH DAY 2 OF 2 [facility] Microscopic observation Other stain Nom (Unsp spec) Cytocentrifuge preparation [facility] Microscopic observation Other stain Nom (Unsp spec) Neutrophils, Rare [facility] Microscopic observation Other stain Nom (Unsp spec) Red Blood Cells Present [facility] Microscopic observation Other stain Nom (Unsp spec) No organisms seen [facility] Bacteria identified Respirat ory culture Nom (Unsp spec)Ordered By: Jose Salgado on 09-04-2023 Bacteria identified Cx Nom (Unsp spec) NO GROWTH DAY 2 OF 2 [facility] Microscopic observation Other stain Nom (Unsp spec) Cytocentrifuge preparation [facility] Microscopic observation Other stain Nom (Unsp spec) Neutrophils, Moderate [facility] Microscopic observation Other stain Nom (Unsp spec) Red Blood Cells Present [facility] Microscopic observation Other stain Nom (Unsp spec) No organisms seen [facility] CBC,PLATELETSon 09-04-2023 Erythrocyte distribution width (RBC) [Ratio] 13.2 % 10.9 - 14.3 % [facility] Hematocrit (Bld) [Volume fraction] 38.7 % Low 39.6 - 48.8 % [facility] Hemoglobin (Bld) [Mass/Vol] 12.3 g/dL Low 13.4 - 16.8 g/dL [facility] Interpretation and review of laboratory results Abnormal [facility] MCH (RBC) [Entitic mass] 27.9 pg 26.1 - 33.3 pg [facility] MCHC (RBC) [Mass/Vol] 31.8 g/dL Low 31.9 - 36.5 g/dL [facility] MCV (RBC) [Entitic vol] 87.8 fL 79.0 - 94.5 fL [facility] Platelet mean volume (Bld) [Entitic vol] 9.8 fL 8.7 - 12.3 fL [facility] Platelets (Bld) [#/Vol] 173 10*3/uL 146 - 337 K/uL [facility] RBC (Bld) [#/Vol] 4.41 10*6/uL [facility] WBC (Bld) [#/Vol] 4.57 10*3/uL 3.73 - 10. 10 K/uL [facility] CHEM 7 (LYTES,BUN,CREA,GLUC) on 09-04-2023 Anion gap [Moles/Vol] 16 mmol/L 7 - 17 mmol/L [facility] Chloride [Moles/Vol] 104 mmol/L 98 - 10 8 mmol/L [facility] CO2 [Moles/Vol] 18 mmol/L Low 21 - 31 mmol/L [facility] Creatinine [Mass/Vol] 1.22 mg/dL 0.70 - 1.30 mg/dL [facility] eGFR, CKD-EPI, Male 71 - PINF [facility] Glucose [Mass/Vol] 124 mg/dL High 70 - 99 mg/dL [facility] Osmolality Calc [Osmolality] 284 [facility] Potassium [Moles/Vol] 3.9 mmol/L 3.5 - 5.0 mmol/L [facility] Sodium [Moles/Vol] 134 mmol/L Low 135 - 145 mmol/L [facility] Urea nitrogen [Mass/Vol] 15 mg/dL 7 - 25 mg/dL [facility] Urea nitrogen/Creatinine [Mass ratio] 12 mg/mg [facility] CMV PCR,FLUIDS,URINE,EYE ETC on 09-04-2023 Specimen source Nom (Unsp spec) BAL LLL [facility] Specimen source Nom (Unsp spec) BAL RML [facility] HEPATIC FUNCTION PANELon Albumin [Mass/Vol] 3.0 g/dL Low 3.5 - 5.0 g/dL [facility] ALP [Catalytic activity/Vol] 112 U/L 32 - 126 U/L [facility] ALT [Catalytic activity/Vol] 22 U/L 10 - 52 U/L [facility] AST [Catalytic activity/Vol] 30 U/L 10 - 39 U/L [facility] Bilirubin [Mass/Vol] 1.2 mg/dL NINF - 1.5 mg/dL [facility] Bilirubin.direct [Mass/Vol] 0.4 mg/dL High NINF - 0.3 mg/dL [facility] Protein [Mass/Vol] 6.4 g/dL 6.4 - 8.3 g/dL [facility] LEGIONELLA PCRon 09-04-2023 Legionella sp rRNA Probe Ql (Unsp spec) Negative Not Applicable [facility] Specimen source Nom (Unsp spec) BAL RML [facility] - Microbiology an d Antimicrobial susceptibilityon 09-04-2023 CMV DNA ESTELITA+probe Ql (Unsp spec) Negative Negative [facility] MAGNESIUMon 09-04-2023 Magnesium [Mass/Vol] 1.4 mg/dL Low 1.6 - 2 .6 mg/dL [facility] No Panel Informationon 09-04 Annotation comment [Interpretation] Narrative DNR [facility] PN Report Status DNR [facility] Pneumocystis jiroveci,PCR result Negative Not Applicable [facility] Interpretation and review of laboratory results Abnormal [facility] PNEUMOCYSTIS JIROVECI,PCRon 09-04-2023 Specimen source Nom (Unsp spec) BAL LLL [facility] Specimen source Nom (Unsp spec) BAL RML [facility] Portable XR Chest Viewson RADIOLOGY RADIOLOGY [facility] Radiology Study observation (narrative) [facility] Portable XR Chest ViewsOrder ed By: Joanie Nugent on 09-04-2023 [facility] Work Phone: TACROLIMUS LEVEL, TROUGH (UT E DRUG LEVEL)on 09-04-2023 Interpretation and review of laboratory results Abnormal [facility] Tacrolimus (Bld) [Mass/Vol] 3.6 ng/mL Low [facility] ASPERGILLUS ANTIGEN, BALon 1 Galactomannan Ag IA Qn (Unsp spec) <0.500 NINF [facility] Galactomannan Ag IA Qn (Unsp spec) <0.500 NINF [facility] BAL CONSULTOrdered By: Noa Peralta on 09-03-2023 ALVEOLAR MACROPHAGES 32 % [facility] Work Phone: Bal comments Correlation with microbiology stains and cultures is recommended. [facility] Work Phone: Bal Diff Quik Stain Quality Check Acceptable [facility] Work Phone: BKR BAL INTERPRETATION Cellular specimen comprised of alveolar macrophages and small lymphocytes. No definitive microorganisms are observed. Moderate degenerative changes. [facility] Work Phone: BKR DX CODE Use Ordering [facility] Work Phone: Eosinophils Patterson stain Ql (Unsp spec) 0 % [facility] Work Phone: Lymphocytes/100 WBC (Bld) 57 % [facility] Work Phone: Neutrophils/100 WBC Manual cnt (Bronch spec) 11 % [facility] Work Phone: Pathologist review Jame (Unsp spec) [Interp] Leoanrdo Peralta MD [facility] Work Phone: [facility] Work Phone: BAL CONSULTon 09-03-2023 ALVEOLAR MACROPHAGES 33 % [facility] Bal comments Correlation with microbiology stains and cultures is recommended. Correlation with viral studies is recommended. [facility] Bal Diff Quik Stain Quality Check Acceptable [facility] BKR BAL INTERPRETATION Cellular specimen comprised of alveolar macrophages and small lymphocytes. No definitive microorganisms are observed. Rare degenerating cells with changes suggestive of viral cytopathic effect are noted. Moderate degenerative changes. [facility] BKR DX CODE Use Ordering [facility] Eosinophils Patterson stain Ql (Unsp spec) 0 % [facility] Lymphocytes/100 WBC (Bld) 49 % [facility] Neutrophils/100 WBC Manual cnt (Bronch spec) 18 % [facility] Pathologist review Jame (Unsp spec) [Interp] Leonardo Peralta MD [facility] BRONCHOSCOPYon 09-03-2023 LAB, [facility] CBC,PLATELETSon 09-03-2023 Erythrocyte distribution width (RBC) [Ratio] 13.4 % 10.9 - 14.3 % [facility] Hematocrit (Bld) [Volume fraction] 39.6 % 39.6 - 48.8 % [facility] Hemoglobin (Bld) [Mass/Vol] 12.8 g/dL Low 13.4 - 16.8 g/dL [facility] Interpretation and review of laboratory results Abnormal [facility] MCH (RBC) [Entitic mass] 27.8 pg 26.1 - 33.3 pg [facility] MCHC (RBC) [Mass/Vol] 32.3 g/dL 31.9 - 36.5 g/dL [facility] MCV (RBC) [Entitic vol] 85.9 fL 79.0 - 94.5 fL [facility] Platelet mean volume (Bld) [Entitic vol] 9.4 fL 8.7 - 12.3 fL [facility] Platelets (Bld) [#/Vol] 222 10*3/uL 146 - 337 K/uL [facility] RBC (Bld) [#/Vol] 4.61 10*6/uL [facility] [#/Vol] 4.36 10*3/uL 3.73 - 10. 10 K/[facility]L [facility] 7 (LYTES,BUN,CREA,GLUC) on 09-03-2023 Anion gap [Moles/Vol] 12 mmol/L 7 - 17 mmol/L [facility] Chloride [Moles/Vol] 104 mmol/L 98 - 10 8 mmol/L [facility] CO2 [Moles/Vol] 24 mmol/L 21 - 31 mmol/L [facility] Creatinine [Mass/Vol] 1.20 mg/dL 0.70 - 1.30 mg/dL [facility] eGFR, CKD-EPI, Male 73 - PINF [facility] Glucose [Mass/Vol] 112 mg/dL High 70 - 99 mg/dL [facility] Osmolality Calc [Osmolality] 288 [facility] Potassium [Moles/Vol] 4.1 mmol/L 3.5 - 5.0 mmol/L [facility] Sodium [Moles/Vol] 136 mmol/L 135 - 145 mmol/L [facility] Urea nitrogen [Mass/Vol] 17 mg/dL 7 - 25 mg/dL [facility] Urea nitrogen/Creatinine [Mass ratio] 14 mg/mg [facility] CYTOLOGY, NON-GYNOrdered By: Sherice Jimenez on 09-03-2023 CYTOLOGIC DIAGNOSIS [id number] auqmSlNHJszWCpK9Feljvb YLqfOR6dSE5ktQmoxAIzuC MbGVBtCgWoq7jsh503iNGe k5gyJWUBoelxeWg7m2inEW QOfE5es5o6dP34EURhvR2b dGJsIDtccmVkMFxncmVlbj NbRgp4UTX0oEgoCvlreCI4 iRJjxPA9BEkyt8HekWjevO kaQSM2RHJhIcfgHSmioRQ8 iQLmvZsduDStLO8iv6zyuK T6auItTMT0bErphBQ5zIkb twgsd8vziQZ8iDQ0OMeelS K0MCicQoIwW5msPMDlvD8r O17nY8rkRSHdcWvkVIxrRG NksSJ8FAJ8PGOzi9ocPNYf hFCwmBGoRoVlZTzeKok4c2 sfCFFhmF18cDSdxeK2xQmr EWkesRP0DM42ZPnbh3QmYO QdbGmvITYlzO1dMzBqDHry dmVsbmZjbjIzXGxldmVsam MqSWthzqRge3OgggBssIG5 ZUgpucSaqTG8jAddLFDgI1 J5L971FLyiihCzncBqBtAg jvq3RIWzmEvlmMljjOpcqx VsXGxldmVsbmZjMjNcbGV2 BWjrTyUkTlLzlSA3MVgxHy CafHE8EMzlzXMboZD9GRrl xTT6ZNe4OZm0JYfoSPpsFh c3cByksAC1WYfmuS9xUJEk Q58zNpN6j7uixHW0xMN0MO wowXZ2EBwiZvPcF1abDWTj yH1wE07cI7ewHEXsuApuVW aoJZBtfDY1NVW4GWSif8bu ZXZlbHRleHRcJzAxXCdiNz b9f7gwQNSniM56qYQxesU1 rSamFS19XJlvl9ZyUMRviB kbPWFtmN4sUvZxTThidqRm bmZjbjIzXGxldmVsamMwXG svnkCkv8TiynRnlNN1YOri deWmzDL0mKvjPEHeG2X6Q0 77IDuwgxLutxHmYsTjhag9 XGYxfXtcbGlzdGxldmVsXG habpRxcoQhVpOmuVZ3SQqy SaFpXhRmoKN5XSwzCsDyaR X0LDgmyORjtYW2RVnyvHB6 YQm2FVd2PPeaTLofZmb7yU kzuGP9DAkumQ8uCALwZ72d MyR8r3lyfGL1eZA0NPzrxA N1OLbkLaLbW9ltJWDfvY5a D11wK3cjLRRveWanOAysFK DtlWI2KQP1TPJee4coFQTq mJJkuLYpZtUcGJzlIer2u2 fgYLFulX37iWCxwgN7xAms QQ30TGipc0IaLONhbAyuYJ TinK0bTqHoMNpicwXouyDm bjIzXGxldmVsamMwXGxldm Gbr6GhitLhuGK6MIohknPn rHO0vPajGNEsR0A4A663ZP wjagFzugMcMdMrdon4GJZd fXtcbGlzdGxldmVsXGxldm KineOmXkHqyTJ2FIaaIqWo YlTzvIY5UJtmRzCmrFT7DZ henPCeiQH6CQgriGV5SCe4 LAp1GJoiXQxtPwx3fZjqcQ M5MXuevV7pWLVcI57pKlV2 iB32LUkhxPvpqM66FZNklR NgpKLrgLG4VExouFxezT08 MRYwzJFmIVeou6MnFQOsAi X7ZRP5WRUmoToxbQ44ZONl sLQgZ205caEuOSzrJD34HC BhcGVydzEyMjQwXHBhcGVy vLQ1QYRgIN1cqqzsCQdvXI egOFZbunK7CQIshJPiL8Kd FZSfUR6cyvbmEJT0EXenHG XmVUA4AkBuYORlt9Hlhev4 OeXdeZs0y0txQPUgSPKptS ftf8byBGR3LEQixMCpX9of jN5xIMXcWL1emvobz6yrII xqDBloVKAfkQE7roF0MHMg oNLkP1GjwA3aGEMqZYVhgw HdlXndgF5rKpqtpiSmZWCe SMDXBjUIEq9FO4kEUUxNQI 9MQVIgTEFWQUdFLCBMRUZU BBmQT2LBMXwUSeXsOAKwXU YcL2mCC2gUL5ycNgmcEpLr CUneQBDnIhQvB6LhHPVgui ajEZYhYNRAEU8OPHPOBWZG Ag0XMVG2XIZxwuhfuTL2QG wyahTgrYk0uZQgrIgwzA9o YlxmczIyXGNmMSBObyBNYW ynX39ycdCuD6KrdLEfWAHz RLgmDF04dMXyTQKxpAVgUC m2dE2yOLjbjSobisBOkQAl sT5ktzbbZCzvPfLwxYUpHU xpMFxsczBccGFyfQ== [facility] Work Phone: Case Report [facility] Work Phone: Clinical History b6rwtACwZCFgvQUqNYHn M1 aobbXdIZQoeTFqB1Rchpio MPdkKC4oFV5gpXnikYWxzR NtJMTcUdAya7sgy638sUJv t0gqPCGOlpuabHz3iTqeW4 4xq9W0GpjoF6dvNFMvFHdi CWKhYCpinQFkCNj9LJXkjN VydzEyMjQwXHBhcGVyaDE1 NICgKC3vkqnePKksKBmxUK JnkoK7XRKkeTGyA7SoSMSf AK4cnwbvMRA7ADrgORTgGH R9WwEvKYTic6Xtqmn4KrPy qAb2s3rgDTXjIYYngWhpw0 jwENB1ZWQbrOSzK1tlaJ7f IXVkYR5sdeeve3coUEonDM ebZLDhoPZ9bzQ7PYIewHAr Q3EhdM3jHBVdKHUxddTdzM wypM4bYuSbSDvbJcUuGuUp YLgkzCJcfaKmxOPubI6pFY Bhcn0= [facility] Work Phone: For Immediate Release to Patient's MyChart? Yes Yes [facility] Work Phone: Gross Description o6vxbUYiOODbbXOxZONo M1 iovzPjUAVxuSVoZ7Znjmjt KShgOA7zKV9izYsjfOBjeD SjOECgKoCzg4ivb911gLCa a3wgKAJLeojkkXv1kXwfD4 0cz9W3HbbnU47iuTFfCEM8 LPSiCIOogJGpXXAvIWJ1UM RazNOyF1rgMXQeMN5hltgw MSvuJMeyZTJnbWK0EHOueL UwP3MwTFFcUBcmLXPouio7 HeKsPd5ibUDezPorFTpyTP JkXHBsYWluXGZzMjAgTExM IEJBTFxwYXIgMSBtbCBoYX w2IYXmoJ3kiWYgfeVjcOZo jQ7iqQobGUecXWQxJDAYJO RpbQshGYLBRUEhv0EhxV4z cGFyXHBhcmRccGFyXHBhcn 0= [facility] Work Phone: [facility] Work Phone: HEPATIC FUNCTION PANELon Albumin [Mass/Vol] 3.2 g/dL Low 3.5 - 5.0 g/dL [facility] ALP [Catalytic activity/Vol] 118 U/L 32 - 126 U/L [facility] ALT [Catalytic activity/Vol] 25 U/L 10 - 52 U/L [facility] AST [Catalytic activity/Vol] 32 U/L 10 - 39 U/L [facility] Bilirubin [Mass/Vol] 1.0 mg/dL NINF - 1.5 mg/dL [facility] Bilirubin.direct [Mass/Vol] 0.3 mg/dL High NINF - 0.3 mg/dL [facility] Protein [Mass/Vol] 6.5 g/dL 6.4 - 8.3 g/dL [facility] HISTOPLASMA AND BLASTOMYCES ANTIGEN, ENZYME IMMUNOASSAY, SERMon 09-03-2023 Histoplasma/Blastomyce s Ag Result Detected Critically abnormal Not Detected [facility] Histoplasma/Blastomyce s Ag Value 5.3 ng/mL [facility] Interpretation and review of laboratory results Abnormal [facility] MAGNESIUMon 09-03-2023 Interpretation and review of laboratory results Normal [facility] Magnesium [Mass/Vol] 1.6 mg/dL 1.6 - 2 .6 mg/dL [facility] No Panel Informationon 09-03 Interpretation and review of laboratory results Abnormal [facility] PARVOVIRUS (B19) DNA, PCR, B Jenise 09-03-2023 PARVOVIRUS B19 BY RAPID PCR Not detected Not Detected [facility] UT SPEC SOURCE Whole Blood [facility] Portable XR Chest Viewson RADIOLOGY RADIOLOGY [facility] Radiology Study observation (narrative) [facility] Portable XR Chest ViewsOrder ed By: [place] on 09-03-2023 [facility] Work Phone: ASPERGILLUS (GALACTOMANNAN), ANTIGENon 09-02-2023 Galactomannan Ag IA Qn <0.500 NINF OS [facility] ATYPICAL BACTERIAL PNEUMONIA ,PCROrdered By: Shari Contreras on 09-02-2023 B. parapertussis DNA ESTELITA+probe Ql (Unsp spec) Not detected Not Detected [facility] B. pertussis DNA ESTELITA+probe Ql (Unsp spec) Not detected Not Detected [facility] C. pneumoniae DNA ESTELITA+probe Ql (Unsp spec) Not detected Not Detected [facility] Interpretation and review of laboratory results Normal [facility] M. pneumoniae DNA ESTELITA+probe Ql (Unsp spec) Not detected Not Detected [facility] BRONCHOSCOPYon 09-02-2023 Radiology Study observation (narrative) [facility] Bacteria identified Cx Nom ( Bld)on 09-02-2023 Bacteria identified Cx Nom (Unsp spec) NO GROWTH DAY 5 OF 5 [place] [facility] CBC,PLATELETSon 09-02-2023 Erythrocyte distribution width (RBC) [Ratio] 13.2 % 10.9 - 14.3 % [facility] Hematocrit (Bld) [Volume fraction] 39.9 % 39.6 - 48.8 % [facility] Hemoglobin (Bld) [Mass/Vol] 12.9 g/dL Low 13.4 - 16.8 g/dL [facility] Interpretation and review of laboratory results Abnormal [facility] MCH (RBC) [Entitic mass] 27.9 pg 26.1 - 33.3 pg [facility] MCHC (RBC) [Mass/Vol] 32.3 g/dL 31.9 - 36.5 g/dL [facility] MCV (RBC) [Entitic vol] 86.4 fL 79.0 - 94.5 fL [facility] Platelet mean volume (Bld) [Entitic vol] 9.5 fL 8.7 - 12.3 fL [facility] Platelets (Bld) [#/Vol] 210 10*3/uL 146 - 337 K/uL [facility] RBC (Bld) [#/Vol] 4.62 10*6/uL [facility] WBC (Bld) [#/Vol] 4.12 10*3/uL 3.73 - 10. 10 K/uL [facility] CHEM 7 (LYTES,BUN,CREA,GLUC) on 09-02-2023 Anion gap [Moles/Vol] 13 mmol/L 7 - 17 mmol/L [facility] Chloride [Moles/Vol] 105 mmol/L 98 - 10 8 mmol/L [facility] CO2 [Moles/Vol] 22 mmol/L 21 - 31 mmol/L [facility] Creatinine [Mass/Vol] 1.25 mg/dL 0.70 - 1.30 mg/dL [facility] eGFR, CKD-EPI, Male 70 - PINF [facility] Glucose [Mass/Vol] 105 mg/dL High 70 - 99 mg/dL [facility] Osmolality Calc [Osmolality] 287 [facility] Potassium [Moles/Vol] 4.3 mmol/L 3.5 - 5.0 mmol/L [facility] Sodium [Moles/Vol] 136 mmol/L 135 - 145 mmol/L [facility] Urea nitrogen [Mass/Vol] 16 mg/dL 7 - 25 mg/dL [facility] Urea nitrogen/Creatinine [Mass ratio] 13 mg/mg [facility] HEPATIC FUNCTION PANELon Albumin [Mass/Vol] 3.2 g/dL Low 3.5 - 5.0 g/dL [facility] ALP [Catalytic activity/Vol] 107 U/L 32 - 126 U/L [facility] ALT [Catalytic activity/Vol] 20 U/L 10 - 52 U/L [facility] AST [Catalytic activity/Vol] 31 U/L 10 - 39 U/L [facility] Bilirubin [Mass/Vol] 1.0 mg/dL NINF - 1.5 mg/dL [facility] Bilirubin.direct [Mass/Vol] 0.3 mg/dL High NINF - 0.3 mg/dL [facility] Protein [Mass/Vol] 6.6 g/dL 6.4 - 8.3 g/dL [facility] HISTOPLASMA ANTIGEN,URINEon 09-02-2023 H. capsulatum Ag (U) [Mass/Vol] Not detected ng/mL [facility] H. capsulatum Ag IA Ql (U) Not detected Not Detected [facility] HIV 1 AND 2 ANTIBODIES/P24 A NTIGENOrdered By: Wilma Luque on 09-02-2023 HIV 1+2 Ab+HIV1 p24 Ag IA Ql Non-Reactive Non Reactive [facility] Interpretation and review of laboratory results Normal [facility] MAGNESIUMon 09-02-2023 Interpretation and review of laboratory results Normal [facility] Magnesium [Mass/Vol] 1.7 mg/dL 1.6 - 2 .6 mg/dL [facility] No Panel Informationon 09-02 Interpretation and review of laboratory results Abnormal [facility] TACROLIMUS LEVEL, TROUGH (UT E DRUG LEVEL)on 09-02-2023 Interpretation and review of laboratory results Normal [facility] Tacrolimus (Bld) [Mass/Vol] 4.2 ng/mL [facility] CBC,PLATELETSon 09-01-2023 Erythrocyte distribution width (RBC) [Ratio] 13.4 % 10.9 - 14.3 % [facility] Hematocrit (Bld) [Volume fraction] 38.9 % Low 39.6 - 48.8 % [facility] Hemoglobin (Bld) [Mass/Vol] 12.7 g/dL Low 13.4 - 16.8 g/dL [facility] Interpretation and review of laboratory results Abnormal [facility] MCH (RBC) [Entitic mass] 27.6 pg 26.1 - 33.3 pg [facility] MCHC (RBC) [Mass/Vol] 32.6 g/dL 31.9 - 36.5 g/dL [facility] MCV (RBC) [Entitic vol] 84.6 fL 79.0 - 94.5 fL [facility] Platelet mean volume (Bld) [Entitic vol] 9.4 fL 8.7 - 12.3 fL [facility] Platelets (Bld) [#/Vol] 209 10*3/uL 146 - 337 K/uL [facility] RBC (Bld) [#/Vol] 4.60 10*6/uL [facility] WBC (Bld) [#/Vol] 4.41 10*3/uL 3.73 - 10. 10 K/uL [facility] CHEM 7 (LYTES,BUN,CREA,GLUC) on 09-01-2023 Anion gap [Moles/Vol] 14 mmol/L 7 - 17 mmol/L [facility] Chloride [Moles/Vol] 103 mmol/L 98 - 10 8 mmol/L [facility] CO2 [Moles/Vol] 21 mmol/L 21 - 31 mmol/L [facility] Creatinine [Mass/Vol] 1.16 mg/dL 0.70 - 1.30 mg/dL [facility] eGFR, CKD-EPI, Male 76 - PINF [facility] Glucose [Mass/Vol] 117 mg/dL High 70 - 99 mg/dL [facility] Osmolality Calc [Osmolality] 285 [facility] Potassium [Moles/Vol] 4.2 mmol/L 3.5 - 5.0 mmol/L [facility] Sodium [Moles/Vol] 134 mmol/L Low 135 - 145 mmol/L [facility] Urea nitrogen [Mass/Vol] 18 mg/dL 7 - 25 mg/dL [facility] Urea nitrogen/Creatinine [Mass ratio] 16 mg/mg [facility] CRYPTOCOCCAL ANTIGENon 09-01 Cryptococcus sp Ag Ql (S) Negative Negative [facility] Interpretation and review of laboratory results Normal [facility] HEPATIC FUNCTION PANELon Albumin [Mass/Vol] 3.3 g/dL Low 3.5 - 5.0 g/dL [facility] ALP [Catalytic activity/Vol] 112 U/L 32 - 126 U/L [facility] ALT [Catalytic activity/Vol] 21 U/L 10 - 52 U/L [facility] AST [Catalytic activity/Vol] 29 U/L 10 - 39 U/L [facility] Bilirubin [Mass/Vol] 1.0 mg/dL NINF - 1.5 mg/dL [facility] Bilirubin.direct [Mass/Vol] 0.2 mg/dL NINF - 0.3 mg/dL [facility] Protein [Mass/Vol] 6.8 g/dL 6.4 - 8.3 g/dL [facility] L. pneumophila 1 Ag IA Ql (U )Ordered By: Carolin Miles on 09-01-2023 Interpretation and review of laboratory results Normal [place] [facility] AGOrdered By: Carolin Miles on 09-01-2023 L. pneumophila 1 Ag IA Ql (U) Negative Negative [facility] MAGNESIUMon 09-01-2023 Interpretation and review of laboratory results Normal [facility] Magnesium [Mass/Vol] 1.6 mg/dL 1.6 - 2 .6 mg/dL [facility] No Panel Informationon 09-01 Interpretation and review of laboratory results Abnormal [facility] CBC,PLATELETSon 08-31-2023 Erythrocyte distribution width (RBC) [Ratio] 13.3 % 10.9 - 14.3 % [facility] Hematocrit (Bld) [Volume fraction] 39.4 % Low 39.6 - 48.8 % [facility] Hemoglobin (Bld) [Mass/Vol] 12.8 g/dL Low 13.4 - 16.8 g/dL [facility] Interpretation and review of laboratory results Abnormal [facility] MCH (RBC) [Entitic mass] 27.6 pg 26.1 - 33.3 pg [facility] MCHC (RBC) [Mass/Vol] 32.5 g/dL 31.9 - 36.5 g/dL [facility] MCV (RBC) [Entitic vol] 85.1 fL 79.0 - 94.5 fL [facility] Platelet mean volume (Bld) [Entitic vol] 9.6 fL 8.7 - 12.3 fL [facility] Platelets (Bld) [#/Vol] 228 10*3/uL 146 - 337 K/uL [facility] RBC (Bld) [#/Vol] 4.63 10*6/uL [facility] WBC (Bld) [#/Vol] 4.77 10*3/uL 3.73 - 10. 10 [facility]M 7 (LYTES,BUN,CREA,GLUC) on 08-31-2023 Anion gap [Moles/Vol] 13 mmol/L 7 - 17 mmol/L [facility] Chloride [Moles/Vol] 102 mmol/L 98 - 10 8 mmol/L [facility] CO2 [Moles/Vol] 23 mmol/L 21 - 31 mmol/L [facility] Creatinine [Mass/Vol] 1.37 mg/dL High 0.70 - 1.30 mg/dL [facility] eGFR, CKD-EPI, Male 62 - PINF [facility] Glucose [Mass/Vol] 112 mg/dL High 70 - 99 mg/dL [facility]olality] [facility] Potassium [Moles/Vol] 4.4 mmol/L 3.5 - 5.0 mmol/L [facility] Sodium [Moles/Vol] 134 mmol/L Low 135 - 145 mmol/L [facility] Urea nitrogen [Mass/Vol] 16 mg/dL 7 - 25 mg/dL [facility] Urea nitrogen/Creatinine [Mass ratio] 12 mg/mg [facility] CT Abdomen and Pelvis WO con traston 08-31-2023 RADIOLOGY RADIOLOGY [facility] Radiology Study observation (narrative) [facility] CT Abdomen and Pelvis WO con trastOrdered By: Chavez Larkin on 08-31-2023 [facility] Work Phone: CT Chest WO contraston 08-31 RADIOLOGY RADIOLOGY [facility] Radiology Study observation (narrative) [facility] CT Chest WO contrastOrdered By: Daisha Patterson on 08-31-2023 [facility] Work Phone: FERRITINon 08-31-2023 Ferritin [Mass/Vol] 409.0 ng/mL High 10.5 - 3 07.3 ng/mL [facility] Interpretation and review of laboratory results Abnormal [facility] HEPATIC FUNCTION PANELon Albumin [Mass/Vol] 3.3 g/dL Low 3.5 - 5.0 g/dL [facility] ALP [Catalytic activity/Vol] 113 U/L 32 - 126 U/L [facility] ALT [Catalytic activity/Vol] 25 U/L 10 - 52 U/L [facility] AST [Catalytic activity/Vol] 31 U/L 10 - 39 U/L [facility] Bilirubin [Mass/Vol] 1.1 mg/dL NINF - 1.5 mg/dL [facility] Bilirubin.direct [Mass/Vol] 0.3 mg/dL High NINF - 0.3 mg/dL [facility] Protein [Mass/Vol] 7.0 g/dL 6.4 - 8.3 g/dL [facility] MAGNESIUMon 08-31-2023 Interpretation and review of laboratory results Normal [facility] Magnesium [Mass/Vol] 1.7 mg/dL 1.6 - 2 .6 mg/dL [facility] No Panel Informationon 08-31 Interpretation and review of laboratory results Abnormal [facility] PROCALCITONINon 08-31-2023 Interpretation and review of laboratory results Normal [facility] Procalcitonin [Mass/Vol] 0.23 ng/mL NINF - 0.50 ng/mL [facility] TACROLIMUS LEVEL, TROUGH (UT E DRUG LEVEL)Ordered By: Yanira Marcum on 08-31-2023 Interpretation and review of laboratory results Normal [facility] Tacrolimus (Bld) [Mass/Vol] 5.9 ng/[facility] URINE CULTUREOrdered By: Jorge Lozano on 08-31-2023 Bacteria identified Cx Nom (Unsp spec) No Growth [facility] DARYL AURIS SCREEN BY PCRO rdered By: Mynor Alejandro on 08-30-2023 Daryl auris Screen by PCR Not detected Not Detected [facility] Interpretation and review of laboratory results Normal [facility] CBC,PLATELETSon 08-30-2023 Erythrocyte distribution width (RBC) [Ratio] 13.3 % 10.9 - 14.3 % [facility] Hematocrit (Bld) [Volume fraction] 41.3 % 39.6 - 48.8 % [facility] Hemoglobin (Bld) [Mass/Vol] 13.2 g/dL Low 13.4 - 16.8 g/dL [facility] Interpretation and review of laboratory results Abnormal [facility] MCH (RBC) [Entitic mass] 27.3 pg 26.1 - 33.3 pg [facility] MCHC (RBC) [Mass/Vol] 32.0 g/dL 31.9 - 36.5 g/dL [facility] MCV (RBC) [Entitic vol] 85.5 fL 79.0 - 94.5 fL [facility] Platelet mean volume (Bld) [Entitic vol] 9.2 fL 8.7 - 12.3 fL [facility] Platelets (Bld) [#/Vol] 235 10*3/uL 146 - 337 K/uL [facility] RBC (Bld) [#/Vol] 4.83 10*6/uL [facility] WBC (Bld) [#/Vol] 4.96 10*3/uL 3.73 - 10. 10 K/uL [facility] CHEM 7 (LYTES,BUN,CREA,GLUC) on 08-30-2023 Anion gap [Moles/Vol] 14 mmol/L 7 - 17 mmol/L [facility] Chloride [Moles/Vol] 102 mmol/L 98 - 10 8 mmol/L [facility] CO2 [Moles/Vol] 20 mmol/L Low 21 - 31 mmol/L [facility] Creatinine [Mass/Vol] 1.56 mg/dL High 0.70 - 1.30 mg/dL [facility] eGFR, CKD-EPI, Male 54 Low - PINF [facility] Glucose [Mass/Vol] 123 mg/dL High 70 - 99 mg/dL [facility]sm[facility]ality Calc [Osmolality] [facility] Potassium [Moles/Vol] 4.3 mmol/L 3.5 - 5.0 mmol/L [facility] Sodium [Moles/Vol] 132 mmol/L Low 135 - 145 mmol/L [facility] Urea nitrogen [Mass/Vol] 16 mg/dL 7 - 25 mg/dL [facility] Urea nitrogen/Creatinine [Mass ratio] 10 mg/mg [facility] EXTRA MICROon 08-30-2023 [facility] HEPATIC FUNCTION PANELon Albumin [Mass/Vol] 3.7 g/dL 3.5 - 5.0 g/dL [facility] ALP [Catalytic activity/Vol] 115 U/L 32 - 126 U/L [facility] ALT [Catalytic activity/Vol] 22 U/L 10 - 52 U/L [facility] AST [Catalytic activity/Vol] 34 U/L 10 - 39 U/L [facility] Bilirubin [Mass/Vol] 1.2 mg/dL NINF - 1.5 mg/dL [facility] Bilirubin.direct [Mass/Vol] 0.3 mg/dL High NINF - 0.3 mg/dL [facility] Protein [Mass/Vol] 7.7 g/dL 6.4 - 8.3 g/dL [facility] MAGNESIUMon 08-30-2023 Interpretation and review of laboratory results Normal [facility] Magnesium [Mass/Vol] 1.8 mg/dL 1.6 - 2 .6 mg/dL [facility] No Panel Informationon 08-30 Interpretation and review of laboratory results Abnormal [facility] CBC,PLATELETSon 08-29-2023 Erythrocyte distribution width (RBC) [Ratio] 13.4 % 10.9 - 14.3 % [facility] Hematocrit (Bld) [Volume fraction] 37.6 % Low 39.6 - 48.8 % [facility] Hemoglobin (Bld) [Mass/Vol] 12.2 g/dL Low 13.4 - 16.8 g/dL [facility] Interpretation and review of laboratory results Abnormal [facility] MCH (RBC) [Entitic mass] 27.6 pg 26.1 - 33.3 pg [facility] MCHC (RBC) [Mass/Vol] 32.4 g/dL 31.9 - 36.5 g/dL [facility] MCV (RBC) [Entitic vol] 85.1 fL 79.0 - 94.5 fL [facility] Platelet mean volume (Bld) [Entitic vol] 9.4 fL 8.7 - 12.3 fL [facility] Platelets (Bld) [#/Vol] 233 10*3/uL 146 - 337 K/uL [facility] RBC (Bld) [#/Vol] 4.42 10*6/uL [facility] WBC (Bld) [#/Vol] 4.92 10*3/uL 3.73 - 10. 10 K/uL [facility] CHEM 7 (LYTES,BUN,CREA,GLUC) on 08-29-2023 Anion gap [Moles/Vol] 13 mmol/L 7 - 17 mmol/L [facility] Chloride [Moles/Vol] 105 mmol/L 98 - 10 8 mmol/L [facility] CO2 [Moles/Vol] 20 mmol/L Low 21 - 31 mmol/L [facility] Creatinine [Mass/Vol] 1.55 mg/dL High 0.70 - 1.30 mg/dL [facility] eGFR, CKD-EPI, Male 55 Low - PINF [facility] Glucose [Mass/Vol] 108 mg/dL High 70 - 99 mg/dL [facility] Osmolality Calc [Osmolality] [facility] Potassium [Moles/Vol] 4.5 mmol/L 3.5 - 5.0 mmol/L [facility] Sodium [Moles/Vol] 133 mmol/L Low 135 - 145 mmol/L [facility] Urea nitrogen [Mass/Vol] 19 mg/dL 7 - 25 mg/dL [facility] Urea nitrogen/Creatinine [Mass ratio] 12 mg/mg [facility] GGTon 08-29-2023 Gamma glutamyl transferase [Catalytic activity/Vol] 64 U/L 8 - 64 U/L [facility] Interpretation and review of laboratory results Normal [facility] HEPATIC FUNCTION PANELon Albumin [Mass/Vol] 3.3 g/dL Low 3.5 - 5.0 g/dL [facility] ALP [Catalytic activity/Vol] 103 U/L 32 - 126 U/L [facility] ALT [Catalytic activity/Vol] 18 U/L 10 - 52 U/L [facility] AST [Catalytic activity/Vol] 27 U/L 10 - 39 U/L [facility] Bilirubin [Mass/Vol] 1.1 mg/dL NINF - 1.5 mg/dL [facility] Bilirubin.direct [Mass/Vol] 0.3 mg/dL High NINF - 0.3 mg/dL [facility] Protein [Mass/Vol] 6.8 g/dL 6.4 - 8.3 g/dL [facility] MAGNESIUMon 08-29-2023 Interpretation and review of laboratory results Normal [facility] Magnesium [Mass/Vol] 1.7 mg/dL 1.6 - 2 .6 mg/dL [facility] No Panel Informationon 08-29 Interpretation and review of laboratory results Abnormal [facility] PT,INR,PTTon 08-29-2023 aPTT Coag (PPP) [Time] 29.3 s OS [facility] INR Coag (Bld) [Relative time] 1.1 {INR} 0.9 - 1.1 [facility] Interpretation and review of laboratory results Normal [facility] PT Coag (PPP) [Time] 13.8 s [facility] Portable XR Chest Viewson RADIOLOGY RADIOLOGY [facility] Portable XR Chest ViewsOrder ed By: Gerald Baer on 08-29-2023 [facility] Work Phone: TACROLIMUS LEVEL, TROUGH (UT E DRUG LEVEL)on 08-29-2023 Interpretation and review of laboratory results Normal [facility] Tacrolimus (Bld) [Mass/Vol] 8.9 ng/mL [facility] TACROLIMUS LEVEL, TROUGH (UT E DRUG LEVEL)Ordered By: Roxanne Luoie on 08-29-2023 Interpretation and review of laboratory results Normal [facility] Tacrolimus (Bld) [Mass/Vol] 8.7 ng/mL [facility] URINALYSIS REFLEX TO CULTURE PERFORMABLEOrdered By: Shaji Kelly on 08-29-2023 Appearance (U) Clear Clear [facility] Bacteria LM Ql (Urine sed) ABSENT ABSENT [facility] Calcium Oxalate Crystals PRESENT [facility] Color (U) Yellow Yellow [facility] Epithelial cells.squamous LM Ql (Urine sed) 0-2/hpf 0-2/hpf, 3-5/hpf = 1+ [facility] Glucose Test strip (U) [Mass/Vol] Negative Negative [facility] Interpretation and review of laboratory results Abnormal [facility] Ketones (U) [Mass/Vol] Negative Negative OS [facility] Leukocyte esterase Test strip Ql (U) Negative Negative [facility] Nitrite Ql (U) Negative Negative [facility] pH (U) 6.0 [pH] 5.0 - 7.0 [facility] Protein (U) [Mass/Vol] Negative Negative [facility] RBC (U) [#/Vol] Trace Abnormal Negative [facility] RBC LM.HPF (Urine sed) [#/Area] 3-5 Abnormal [facility] Specific gravity (U) [Rel density] 1.015 1.001 - 1.035 [facility] Urobilinogen (U) [Mass/Vol] 1.0 E.U./dL 0.2 E.U/dL, 1.0 E.U/dL [facility] WBC LM.HPF (Urine sed) [#/Area] 0 - 5 [facility] US for transplanted kidney l imitedon 08-29-2023 RADIOLOGY RADIOLOGY [facility] Radiology Study observation (narrative) [facility] US for transplanted kidney l imitedOrdered By: Romana Matias on 08-29-2023 [facility] Work Phone: CBC AND ELECTRONIC DIFFon Basophils (Bld) [#/Vol] K/uL 0.00 - 0.09 K/uL [facility] Basophils/100 WBC (Bld) 0.6 % [facility] Differential cell count method Nom (Bld) Electronic Differential [facility] Eosinophils (Bld) [#/Vol] 0.10 10*3/uL 0.00 - 0.48 K/uL [facility] Eosinophils/100 WBC (Bld) 2.1 % [facility] Erythrocyte distribution width (RBC) [Ratio] 13.4 % 10.9 - 14.3 % [facility] Hematocrit (Bld) [Volume fraction] 37.9 % Low 39.6 - 48.8 % [facility] Hemoglobin (Bld) [Mass/Vol] 12.4 g/dL Low 13.4 - 16.8 g/dL [facility] Immature granulocytes (Bld) [#/Vol] K/uL NINF - 0.07 K/uL [facility] Immature granulocytes/100 WBC (Bld) 0.6 % [facility] Interpretation and review of laboratory results Abnormal [facility] Lymphocytes (Bld) [#/Vol] 1.76 10*3/uL 0.83 - 3.57 K/uL [facility] Lymphocytes/100 WBC (Bld) 37.1 % [facility] MCH (RBC) [Entitic mass] 27.8 pg 26.1 - 33.3 pg [facility] MCHC (RBC) [Mass/Vol] 32.7 g/dL 31.9 - 36.5 g/dL [facility] MCV (RBC) [Entitic vol] 85.0 fL 79.0 - 94.5 fL [facility] Monocytes (Bld) [#/Vol] 0.66 10*3/uL 0.24 - 0.93 K/uL [facility] Monocytes/100 WBC (Bld) 13.9 % [facility] Neutrophils (Bld) [#/Vol] 2.16 10*3/uL 1.57 - 6.19 K/uL [facility] Nucleated RBC/100 WBC (Bld) [Ratio] 0.0 % [facility] Platelet mean volume (Bld) [Entitic vol] 9.3 fL 8.7 - 12.3 fL [facility] Platelets (Bld) [#/Vol] 262 10*3/uL 146 - 337 K/uL [facility] RBC (Bld) [#/Vol] 4.46 10*6/uL [facility] Segmented neutrophils/100 WBC (Bld) 45.7 % [facility] WBC (Bld) [#/Vol] 4.74 10*3/uL 3.73 - 10. 10 K/uL [facility] CHEM 6 (LYTES, BUN CREA)on 0 08-28-2023 Anion gap [Moles/Vol] 13 mmol/L 7 - 17 mmol/L [facility] Chloride [Moles/Vol] 103 mmol/L 98 - 10 8 mmol/L [facility] CO2 [Moles/Vol] 22 mmol/L 21 - 31 mmol/L [facility] Creatinine [Mass/Vol] 1.62 mg/dL High 0.70 - 1.30 mg/dL [facility] eGFR, CKD-EPI, Male 51 Low - PINF [facility] Interpretation and review of laboratory results Abnormal [facility] Potassium [Moles/Vol] 4.3 mmol/L 3.5 - 5.0 mmol/L [facility] Sodium [Moles/Vol] 134 mmol/L Low 135 - 145 mmol/L [facility] Urea nitrogen [Mass/Vol] 22 mg/dL 7 - 25 mg/dL [facility] Urea nitrogen/Creatinine [Mass ratio] 14 mg[facility] Radiology Study observation (narrative) [facility] Respiratory virus DNA+RNA NA A+probe Nom (Unsp spec)Ordered By: Dayami Harris on 08-28-2023 Adenovirus DNA ESTELITA+probe Nom (Unsp spec) Not detected Not Detected [facility] B. parapertussis DNA ESTELITA+probe Ql (Unsp spec) Not detected Not Detected [facility] B. pertussis DNA ESTELITA+probe Ql (Unsp spec) Not detected Not Detected [facility] C. pneumoniae DNA ESTELITA+probe Ql (Unsp spec) Not detected Not Detected [facility] FLUAV RNA ESTELITA+probe Ql (Unsp spec) Not detected Not Detected [facility] FLUBV RNA ESTELITA+probe Ql (Unsp spec) Not detected Not Detected [facility] HCoV 229E RNA ESTELITA+non-probe Ql (Nph) Not detected Not Detected [facility] HCoV HKU1 RNA ESTELITA+non-probe Ql (Nph) Not detected Not Detected [facility] HCoV NL63 RNA ESTELITA+non-probe Ql (Nph) Not detected Not Detected [facility] HCoV OC43 RNA ESTELITA+non-probe Ql (Nph) Not detected Not [facility]ed [facility] A RNA ESTELITA+probe Ql (Unsp spec) Not detected Not Detected [facility] Interpretation and review of laboratory results Normal [facility] M. pneumoniae DNA ESTELITA+probe Ql (Unsp spec) Not detected Not Detected [facility] Parainfluenza virus 1 RNA ESTELITA+probe Ql (Unsp spec) Not detected Not Detected [facility] Parainfluenza virus 2 RNA ESTELITA+probe Ql (Unsp spec) Not detected Not Detected [facility] Parainfluenza virus 3 RNA ESTELITA+probe Ql (Unsp spec) Not detected Not Detected [facility] Parainfluenza virus 4 RNA ESTELITA+probe Ql (Unsp spec) Not detected Not Detected [facility] Rhinovirus+Enterovirus RNA ESTELITA+probe Ql (Unsp spec) Not detected Not Detected [facility] RSV RNA ESTELITA+probe Ql (Unsp spec) Not detected Not Detected [facility] SARS-CoV-2 (COVID-19) RNA ESTELITA+probe Ql (Unsp spec) Not detected NOT DETECTED [facility] ALBUMINon 04-28-2023 Albumin [Mass/Vol] 4.0 g/dL Normal 3.4-5.0 [facility] Comment on above: Performed By: #### C MP #### [facility] [address] [place] [address] Dr. Dwight Waters ALKALINE PHOSPHAon ALP [Catalytic activity/Vol] 106 U/L Normal 46-116 [facility] Comment on above: Performed By: #### F [id number] #### [facility] [address] [place] [address] Dr. Dwight Waters BILIRUBIN CONJUGATED (DIRECT )on 04-28-2023 BILI, CONJUGATED 0.3 mg/dL Critically high 0.0-0.2 [facility] Comment on above: Performed By: #### C MP #### [facility] [address] [place] [address] Dr. Dwight Waters BILIRUBIN TOTALon 04-28-2023 Bilirubin [Mass/Vol] 1.4 mg/dL Critically high 0.2-1.0 [facility] Comment on above: Performed By: #### C MP #### [facility] [address] [place] [address] Dr. Dwight Waters BUNon 04-28-2023 Urea nitrogen [Mass/Vol] 12.0 mg/dL Normal 7.0-18.0 [facility] Comment on above: Performed By: #### U RTPCR #### [facility] [address] [place] [address] Dr. Dwight Waters CALCIUMon 04-28-2023 Calcium [Mass/Vol] 9.3 mg/dL Normal 8.5-10.1 [facility] Comment on above: Performed By: #### U RTPCR #### [facility] [address] [place] [address] Dr. Dwight Waters CBC AUTO DIFFon 04-28-2023 BASO # 0.1 103/ul Normal 0.0-0.1 [facility] Comment on above: Performed By: #### C BC #### [facility] [address] [place] [address] Dr. Dwight Waters Basophils/100 WBC (Bld) 0.9 % Normal 0.2-2.0 [facility] Comment on above: Performed By: #### C BC #### [facility] [address] [place] [address] Dr. Dwight Waters EO # 0.2 103/ul Normal 0.0-0.7 [facility] Comment on above: Performed By: #### C BC #### [facility] [address] [place] [address] Dr. Dwight Waters Eosinophils/100 WBC (Bld) 3.8 % Normal 0.9-7.0 [facility] Comment on above: Performed By: #### C BC #### [facility] [address] [place] [address] Dr. Dwight Waters Erythrocyte distribution width (RBC) [Ratio] 12.5 % Normal 11.0-15.0 [facility] Comment on above: Performed By: #### C BC #### [facility] [address] [place] [address] Dr. Dwight Waters Hematocrit (Bld) [Volume fraction] 49.8 % Normal 42.0-54.0 [facility] Comment on above: Performed By: #### C BC #### [facility] [address] [place] [address] Dr. Dwight Waters Hemoglobin (Bld) [Mass/Vol] 16.4 g/dL Normal 14.0-18.0 [facility] Comment on above: Performed By: #### C BC #### [facility] [address] [place] [address] Dr. Dwight Waters IG # 0.01 10e3/ul Normal 0.00-0.03 [facility] Comment on above: Performed By: #### C BC #### [facility] [address] [place] [address] Dr. Dwight Waters IG % 0.2 % Normal 0.0-0.5 [facility] Comment on above: Performed By: #### C BC #### [facility] [address] [place] [address] Dr. Dwight Waters LYMPH # 2.1 103/ul Normal 1.2-3.8 [facility] Comment on above: Performed By: #### C BC #### [facility] [address] [place] [address] Dr. Dwight Waters Lymphocytes/100 WBC (Bld) 39.1 % Normal 20.5-60.0 [facility] Comment on above: Performed By: #### C BC #### [facility] [address] [place] [address] Dr. Dwight Waters MANUAL DIFF REQ NO Normal [facility] Comment on above: Performed By: #### C BC #### [facility] [address] [place] [address] Dr. Dwight Waters MCH (RBC) [Entitic mass] 28.6 pg Normal 25.9-34.0 [facility] Comment on above: Performed By: #### C BC #### [facility] [address] [address] [address] Dwight Waters MCHC (RBC) [Mass/Vol] 32.9 g/dL Normal 29.9-35.2 [facility] Comment on above: Performed By: #### C BC #### [facility] [address] [address] [address] Dwight Waters MCV (RBC) [Entitic vol] 86.9 fL Normal 80.0-94.0 [facility] Comment on above: Performed By: #### C BC #### [facility] [address] [address] [address] Dwight Waters MONO # 0.6 103/ul Normal 0.3-0.8 [facility] Comment on above: Performed By: #### C BC #### [facility] [address] [place] [address] Dr. Dwight Waters Monocytes/100 WBC (Bld) 10.6 % Normal 1.7-12.0 [facility] Comment on above: Performed By: #### C BC #### [facility] [address] [place] [address] Dr. Dwight Waters NEUT # 2.5 103/ul Normal 1.4-6.5 [facility] Comment on above: Performed By: #### C BC #### [facility] [address] [address] [address] Dwight Waters Neutrophils/100 WBC (Bld) 45.4 % Normal 43.0-75.0 [facility] Comment on above: Performed By: #### C BC #### [facility] [address] [address] [address] Dwight Waters Platelet mean volume (Bld) [Entitic vol] 9.3 fL Critically low 9.5-13.5 [facility] Comment on above: Performed By: #### C BC #### [facility] [address] [address] [address] Dwight Waters PLT 248 103/ul Normal 150-450 [facility] Comment on above: Performed By: #### C BC #### [facility] [address] [place] [address] Dr. Dwight Waters RBC 5.73 106/ul Normal 4.70-6.10 [facility] Comment on above: Performed By: #### C BC #### [facility] [address] [place] [address] Dr. Dwight Waters WBC 5.5 103/ul Normal 4.0-11.0 [facility] Comment on above: Performed By: #### C BC #### [facility] [address] [place] [address] Dr. Dwight Waters CHLORIDEon 04-28-2023 Chloride [Moles/Vol] 107 mmol/L Normal 98-107 [facility] Comment on above: Performed By: #### U RTPCR #### [facility] [address] [place] [address] Dr. Dwight Waters CO2on 04-28-2023 CO2 [Moles/Vol] 28.9 mmol/L Normal 21.0-32.0 [facility] Comment on above: Performed By: #### U RTPCR #### [facility] [address] [place] [address] Dr. Dwight Waters CREATININEon 04-28-2023 Creatinine [Mass/Vol] 1.17 mg/dL Normal 0.70-1.30 [facility] Comment on above: Performed By: #### U RTPCR #### [facility] [address] [place] [address] Dr. Dwight Waters EGFR-AF [facility] >60 Normal >=60 [facility] Comment on above: Performed By: #### U RTPCR #### [facility] [address] [place] [address] Dr. Dwight Waters EGFR-NON AF [facility] >60 Normal >=60 [facility] Comment on above: Performed By: #### U RTPCR #### [facility] [address] [place] [address] Dr. Dwight Waters GGTon 04-28-2023 Gamma glutamyl transferase [Catalytic activity/Vol] 27 U/L Normal 15-85 [facility] Comment on above: Performed By: #### U RTPCR #### [facility] [address] [place] [address] Dr. Dwight Waters GLUCOSE BLOODon 04-28-2023 Glucose [Mass/Vol] 110 mg/dL Critically high 74-106 [facility] Comment on above: Performed By: #### U RTPCR #### [facility] [address] [place] [address] Dr. Dwight Waters MAGNESIUMon 04-28-2023 Magnesium [Mass/Vol] 1.7 mg/dL Critically low 1.8-2.4 [facility] Comment on above: Performed By: #### U RTPCR #### [facility] [address] [place] [address] Dr. Dwight Waters NAon 04-28-2023 Sodium [Moles/Vol] 144 mmol/L Normal 136-145 [facility] Comment on above: Performed By: #### U RTPCR #### [facility] [address] [place] [address] Dr. Dwight Waters PHOSPHORUSon 04-28-2023 Phosphate [Mass/Vol] 3.2 mg/dL Normal 2.6-4.7 [facility] Comment on above: Performed By: #### U RTPCR #### [facility] [address] [place] [address] Dr. Dwight Waters POTASSIUMon 04-28-2023 Potassium [Moles/Vol] 4.0 mmol/L Normal 3.5-5.1 [facility] Comment on above: Performed By: #### U RTPCR #### [facility] [address] [place] [address] Dr. Dwight Waters SGOTon 04-28-2023 AST [Catalytic activity/Vol] 25 U/L Normal 15-37 [facility] Comment on above: Performed By: #### C MP #### [facility] [address] [place] [address] Dr. Dwight Waters SGPTon 04-28-2023 ALT [Catalytic activity/Vol] 40 U/L Normal 16-63 [facility] Comment on above: Performed By: #### C MP #### [facility] [address] [place] [address] Dr. Dwight Waters URINE T PROTEIN CREAT RATIOo n 04-28-2023 Protein (U) [Mass/Vol] 10.1 mg/dL Normal <=12.0 [facility] Comment on above: Performed By: #### U RTPCR #### [facility] [address] [place] [address] Dr. Dwight Waters UR PROT CREAT RAT 0.14 Normal [facility] Comment on above: Performed By: #### U RTPCR #### [facility] [address] [place] [address] Dr. Dwight Waters URINE CREAT 74.40 mg/dL Normal 20.00-300.00 [facility] Comment on above: Performed By: #### U RTPCR #### [facility] [address] [place] [address] Dr. Dwight Waters BK VIRUS PCR QUANTon 023 BKV DNA QUANT PCR PLASMA Negative Normal Negative [facility] Comment on above: Result Comment: No B K DNA detected. . The linear range of the assay is 22 - 100,000,000 IU/mL. Performed By: #### B KVIRUS #### [facility] [address] [place] [address] Dr. Dwight Waters Log10 BKV DNA Plasma Normal [facility] Comment on above: Performed By: #### B KVIRUS #### [facility] [address] [place] [address] Dr. Dwight Waters FK506 (TACROLIMUS) WHOLE BLO ODon 03-04-2023 Tacrolimus (FK506), Blood 5.9 ng/mL Normal 2.0-20.0 [facility] Comment on above: Result Comment: Trou gh (immediately following transplant) 15.0 . Trough (steady state, 2 weeks or more after transplant): 3.0 - 8.0 . Performed by LC-MS/MS technology. Performed By: #### C MP #### [facility] [address] [place] [address] Dr. Dwight Waters ALBUMINon 03-02-2023 Albumin [Mass/Vol] 3.9 g/dL Normal 3.4-5.0 [facility] Comment on above: Performed By: #### U RTPCR #### [facility] [address] [place] [address] Dr. Dwight Waters ALKALINE PHOSPHAon ALP [Catalytic activity/Vol] 105 U/L Normal 46-116 [facility] Comment on above: Performed By: #### U RTPCR #### [facility] [address] [place] [address] Dr. Dwight Waters BILIRUBIN CONJUGATED (DIRECT )on 03-02-2023 BILI, CONJUGATED 0.2 mg/dL Normal 0.0-0.2 [facility] Comment on above: Performed By: #### U RTPCR #### [facility] [address] [place] [address] Dr. Dwight Waters BILIRUBIN TOTALon 03-02-2023 Bilirubin [Mass/Vol] 0.9 mg/dL Normal 0.2-1.0 [facility] Comment on above: Performed By: #### U RTPCR #### [facility] [address] [place] [address] Dr. Dwight Waters CBC AUTO DIFFon 03-02-2023 BASO # 0.1 103/ul Normal 0.0-0.1 [facility] Comment on above: Performed By: #### C BC #### [facility] [address] [place] [address] Dr. Dwight Waters Basophils/100 WBC (Bld) 0.9 % Normal 0.2-2.0 [facility] Comment on above: Performed By: #### C BC #### [facility] [address] [place] [address] Dr. Dwight Waters EO # 0.2 103/ul Normal 0.0-0.7 [facility] Comment on above: Performed By: #### C BC #### [facility] [address] [place] [address] Dr. Dwight Waters Eosinophils/100 WBC (Bld) 3.5 % Normal 0.9-7.0 [facility] Comment on above: Performed By: #### C BC #### [facility] [address] [place] [address] Dr. Dwight Waters Erythrocyte distribution width (RBC) [Ratio] 12.7 % Normal 11.0-15.0 [facility] Comment on above: Performed By: #### C BC #### [facility] [address] [place] [address] Dr. Dwight Waters Hematocrit (Bld) [Volume fraction] 48.2 % Normal 42.0-54.0 [facility] Comment on above: Performed By: #### C BC #### [facility] [address] [place] [address] Dr. Dwight Waters Hemoglobin (Bld) [Mass/Vol] 15.9 g/dL Normal 14.0-18.0 [facility] Comment on above: Performed By: #### C BC #### [facility] [address] [place] [address] Dr. Dwight Waters IG # 0.01 10e3/ul Normal 0.00-0.03 [facility] Comment on above: Performed By: #### C BC #### [facility] [address] [place] [address] Dr. Dwight Waters IG % 0.2 % Normal 0.0-0.5 [facility] Comment on above: Performed By: #### C BC #### [facility] [address] [place] [address] Dr. Dwight Waters LYMPH # 2.1 103/ul Normal 1.2-3.8 [facility] Comment on above: Performed By: #### C BC #### [facility] [address] [place] [address] Dr. Dwight Waters Lymphocytes/100 WBC (Bld) 37.4 % Normal 20.5-60.0 [facility] Comment on above: Performed By: #### C BC #### [facility] [address] [place] [address] Dr. Dwight Waters MANUAL DIFF REQ NO Normal [facility] Comment on above: Performed By: #### C BC #### [facility] [address] [address] [address] Dwight Waters MCH (RBC) [Entitic mass] 28.3 pg Normal 25.9-34.0 [facility] Comment on above: Performed By: #### C BC #### [facility] [address] [place] [address] Dr. Dwight Waters MCHC (RBC) [Mass/Vol] 33.0 g/dL Normal 29.9-35.2 [facility] Comment on above: Performed By: #### C BC #### [facility] [address] [place] [address] Dr. Dwight Waters MCV (RBC) [Entitic vol] 85.8 fL Normal 80.0-94.0 [facility] Comment on above: Performed By: #### C BC #### [facility] [address] [place] [address] Dr. Dwight Waters MONO # 0.6 103/ul Normal 0.3-0.8 [facility] Comment on above: Performed By: #### C BC #### [facility] [address] [place] [address] Dr. Dwight Waters Monocytes/100 WBC (Bld) 10.2 % Normal 1.7-12.0 [facility] Comment on above: Performed By: #### C BC #### [facility] [address] [place] [address] Dr. Dwight Waters NEUT # 2.7 103/ul Normal 1.4-6.5 [facility] Comment on above: Performed By: #### C BC #### [facility] [address] [place] [address] Dr. Dwight Waters Neutrophils/100 WBC (Bld) 47.8 % Normal 43.0-75.0 [facility] Comment on above: Performed By: #### C BC #### [facility] [address] [place] [address] Dr. Dwight Waters Platelet mean volume (Bld) [Entitic vol] 9.3 fL Critically low 9.5-13.5 [facility] Comment on above: Performed By: #### C BC #### [facility] [address] [place] [address] Dr. Dwight Waters PLT 241 103/ul Normal 150-450 [facility] Comment on above: Performed By: #### C BC #### [facility] [address] [place] [address] Dr. Dwight Waters RBC 5.62 106/ul Normal 4.70-6.10 [facility] Comment on above: Performed By: #### C BC #### [facility] [address] [place] [address] Dr. Dwight Waters WBC 5.7 103/ul Normal 4.0-11.0 [facility] Comment on above: Performed By: #### C BC #### [facility] [address] [place] [address] Dr. Dwight Waters GGTon 03-02-2023 Gamma glutamyl transferase [Catalytic activity/Vol] 25 U/L Normal 15-85 [facility] Comment on above: Performed By: #### U RTPCR #### [facility] [address] [place] [address] Dr. Dwight Waters MAGNESIUMon 03-02-2023 Magnesium [Mass/Vol] 1.6 mg/dL Critically low 1.8-2.4 [facility] Comment on above: Performed By: #### U RTPCR #### [facility] [address] [place] [address] Dr. Dwight Waters PHOSPHORUSon 03-02-2023 Phosphate [Mass/Vol] 3.6 mg/dL Normal 2.6-4.7 [facility] Comment on above: Performed By: #### U RTPCR #### [facility] [address] [place] [address] Dr. Dwight Waters PROF CHEM 8 (BAS METB)on Anion gap [Moles/Vol] 9.4 mmol/L Normal [facility] Comment on above: Performed By: #### U RTPCR #### [facility] [address] [place] [address] Dr. Dwight Waters Calcium [Mass/Vol] 9.3 mg/dL Normal 8.5-10.1 [facility] Comment on above: Performed By: #### U RTPCR #### [facility] [address] [address] [address] Dwight Waters Chloride [Moles/Vol] 108 mmol/L Critically high 98-107 [facility] Comment on above: Performed By: #### U RTPCR #### [facility] [address] [address] [address] Dwight Waters CO2 [Moles/Vol] 27.2 mmol/L Normal 21.0-32.0 [facility] Comment on above: Performed By: #### U RTPCR #### [facility] [address] [address] [address] Dwight Waters Creatinine [Mass/Vol] 1.12 mg/dL Normal 0.70-1.30 [facility] Comment on above: Performed By: #### U RTPCR #### [facility] [address] [address] [address] Dwight Waters EGFR-AF [facility] >60 Normal >=60 [facility] Comment on above: Performed By: #### U RTPCR #### [facility] [address] [address] [address] Dwight Waters EGFR-NON AF [facility] >60 Normal >=60 [facility] Comment on above: Performed By: #### U RTPCR #### [facility] [address] [address] [address] Dwight Waters Glucose [Mass/Vol] 113 mg/dL Critically high 74-106 [facility] Comment on above: Performed By: #### U RTPCR #### [facility] [address] [address] [address] Dwight Waters Potassium [Moles/Vol] 3.6 mmol/L Normal 3.5-5.1 [facility] Comment on above: Performed By: #### U RTPCR #### [facility] [address] [address] [address] Dwight Waters Sodium [Moles/Vol] 141 mmol/L Normal 136-145 [facility] Comment on above: Performed By: #### U RTPCR #### [facility] [address] [place] [address] Dr. Dwight Waters Urea nitrogen [Mass/Vol] 14.0 mg/dL Normal 7.0-18.0 [facility] Comment on above: Performed By: #### U RTPCR #### [facility] [address] [place] [address] Dr. Dwight Waters Urea nitrogen/Creatinine [Mass ratio] 12.5 mg/mg Normal [facility] Comment on above: Performed By: #### U RTPCR #### [facility] [address] [place] [address] Dr. Dwight Waters SGOTon 03-02-2023 AST [Catalytic activity/Vol] 20 U/L Normal 15-37 [facility] Comment on above: Performed By: #### U RTPCR #### [facility] [address] [place] [address] Dr. Dwight Waters SGPTon 03-02-2023 ALT [Catalytic activity/Vol] 30 U/L Normal 16-63 [facility] Comment on above: Performed By: #### U RTPCR #### [facility] [address] [place] [address] Dr. Dwight Waters URINE T PROTEIN CREAT RATIOo n 03-02-2023 Protein (U) [Mass/Vol] 10.3 mg/dL Normal <=12.0 [facility] Comment on above: Performed By: #### U RTPCR #### [facility] [address] [place] [address] Dr. Dwight Waters UR PROT CREAT RAT 0.15 Normal [facility] Comment on above: Performed By: #### U RTPCR #### [facility] [address] [place] [address] Dr. Dwight Waters URINE CREAT 68.96 mg/dL Normal 20.00-300.00 [facility] Comment on above: Performed By: #### U RTPCR #### [facility] [address] [place] [address] Dr. Dwight Waters BK VIRUS PCR QUANTon 023 BKV DNA QUANT PCR PLASMA Negative Normal Negative [facility] Comment on above: Result Comment: No B K DNA detected. . The linear range of the assay is 22 - 100,000,000 IU/mL. Performed By: #### C MP #### [facility] [address] [place] [address] Dr. Dwight Waters Log10 BKV DNA Plasma Normal [facility] Comment on above: Performed By: #### C MP #### [facility] [address] [place] [address] Dr. Dwight Waters FK506 (TACROLIMUS) WHOLE BLO ODon 12-31-2022 Tacrolimus (FK506), Blood 5.6 ng/mL Normal 2.0-20.0 [facility] Comment on above: Result Comment: Trou gh (immediately following transplant) 15.0 . Trough (steady state, 2 weeks or more after transplant): 3.0 - 8.0 . Performed by LC-MS/MS technology. Performed By: #### C MP #### [facility] [address] [place] [address] Dr. Dwight Waters ALKALINE PHOSPHAon ALP [Catalytic activity/Vol] 96 U/L Normal 46-116 [facility] Comment on above: Performed By: #### C BC #### [facility] [address] [place] [address] Dr. Dwight Waters BILIRUBIN CONJUGATED (DIRECT )on 12-29-2022 BILI, CONJUGATED 0.3 mg/dL Critically high 0.0-0.2 [facility] Comment on above: Performed By: #### C BC #### [facility] [address] [place] [address] Dr. Dwight Waters BILIRUBIN TOTALon 12-29-2022 Bilirubin [Mass/Vol] 1.1 mg/dL Critically high 0.2-1.0 [facility] Comment on above: Performed By: #### C BC #### [facility] [address] [place] [address] Dr. Dwight Waters CBC AUTO DIFFon 12-29-2022 BASO # 0.1 103/ul Normal 0.0-0.1 [facility] Comment on above: Performed By: #### C MP #### [facility] [address] [place] [address] Dr. Dwight Waters Basophils/100 WBC (Bld) 0.8 % Normal 0.2-2.0 [facility] Comment on above: Performed By: #### C MP #### [facility] [address] [place] [address] Dr. Dwight Waters EO # 0.2 103/ul Normal 0.0-0.7 [facility] Comment on above: Performed By: #### C MP #### [facility] [address] [place] [address] Dr. Dwight Waters Eosinophils/100 WBC (Bld) 3.0 % Normal 0.9-7.0 [facility] Comment on above: Performed By: #### C MP #### [facility] [address] [place] [address] Dr. Dwight Waters Erythrocyte distribution width (RBC) [Ratio] 12.9 % Normal 11.0-15.0 [facility] Comment on above: Performed By: #### C MP #### [facility] [address] [place] [address] Dr. Dwight Waters Hematocrit (Bld) [Volume fraction] 46.9 % Normal 42.0-54.0 [facility] Comment on above: Performed By: #### C MP #### [facility] [address] [place] [address] Dr. Dwight Waters Hemoglobin (Bld) [Mass/Vol] 16.1 g/dL Normal 14.0-18.0 [facility] Comment on above: Performed By: #### C MP #### [facility] [address] [place] [address] Dr. Dwight Waters IG # 0.01 10e3/ul Normal 0.00-0.03 [facility] Comment on above: Performed By: #### C MP #### [facility] [address] [place] [address] Dr. Dwight Waters IG % 0.2 % Normal 0.0-0.5 [facility] Comment on above: Performed By: #### C MP #### [facility] [address] [address] [address] Dwight Waters LYMPH # 1.8 103/ul Normal 1.2-3.8 [facility] Comment on above: Performed By: #### C MP #### [facility] [address] [address] [address] Dwight Waters Lymphocytes/100 WBC (Bld) 27.9 % Normal 20.5-60.0 [facility] Comment on above: Performed By: #### C MP #### [facility] [address] [place] [address] Dr. Dwight Waters MANUAL DIFF REQ NO Normal [facility] Comment on above: Performed By: #### C MP #### [facility] [address] [place] [address] Dr. Dwight Waters MCH (RBC) [Entitic mass] 28.5 pg Normal 25.9-34.0 [facility] Comment on above: Performed By: #### C MP #### [facility] [address] [place] [address] Dr. Dwight Waters MCHC (RBC) [Mass/Vol] 34.3 g/dL Normal 29.9-35.2 [facility] Comment on above: Performed By: #### C MP #### [facility] [address] [place] [address] Dr. Dwight Waters MCV (RBC) [Entitic vol] 83.2 fL Normal 80.0-94.0 [facility] Comment on above: Performed By: #### C MP #### [facility] [address] [place] [address] Dr. Dwight Waters MONO # 0.5 103/ul Normal 0.3-0.8 [facility] Comment on above: Performed By: #### C MP #### [facility] [address] [place] [address] Dr. Dwight Waters Monocytes/100 WBC (Bld) 8.1 % Normal 1.7-12.0 [facility] Comment on above: Performed By: #### C MP #### [facility] [address] [address] [address] Dwight Waters NEUT # 3.8 103/ul Normal 1.4-6.5 [facility] Comment on above: Performed By: #### C MP #### [facility] [address] [place] [address] Dr. Dwight Waters Neutrophils/100 WBC (Bld) 60.0 % Normal 43.0-75.0 [facility] Comment on above: Performed By: #### C MP #### [facility] [address] [address] [address] Dwight Waters Platelet mean volume (Bld) [Entitic vol] 9.2 fL Critically low 9.5-13.5 [facility] Comment on above: Performed By: #### C MP #### [facility] [address] [place] [address] Dr. Dwight Waters PLT 225 103/ul Normal 150-450 [facility] Comment on above: Performed By: #### C MP #### [facility] [address] [place] [address] Dr. Dwight Waters RBC 5.64 106/ul Normal 4.70-6.10 [facility] Comment on above: Performed By: #### C MP #### [facility] [address] [address] [address] Dwight Waters WBC 6.3 103/ul Normal 4.0-11.0 [facility] Comment on above: Performed By: #### C MP #### [facility] [address] [place] [address] Dr. Dwight Waters GGTon 12-29-2022 Gamma glutamyl transferase [Catalytic activity/Vol] 24 U/L Normal 15-85 [facility] Comment on above: Performed By: #### C MP #### [facility] [address] [place] [address] Dr. Dwight Waters LIPID PROFILEon 12-29-2022 CHOL-HDL RATIO NORM SEE BELOW Normal [facility] Comment on above: Result Comment: 3.3 - 4.4 LOW RISK 4.4 - 7.1 AVERAGE RISK 7.1 - 11.0 MODERATE RISK >11.0 HIGH RISK Performed By: #### U RTPCR #### [facility] [address] [address] [address] Dwight Waters Cholesterol [Mass/Vol] 87 mg/dL Normal <=200 [facility] Comment on above: Performed By: #### U RTPCR #### [facility] [address] [address] [address] Dwight Waters Cholesterol in HDL [Mass/Vol] 44 mg/dL Normal 40-60 [facility] Comment on above: Performed By: #### U RTPCR #### [facility] [address] [address] [address] Dwight Waters Cholesterol in LDL [Mass/Vol] 33.0 mg/dL Normal [facility] Comment on above: Performed By: #### U RTPCR #### [facility] [address] [place] [address] Dr. Dwight Waters Cholesterol.total/Chol esterol in HDL [Mass ratio] 2.0 {ratio} Normal [facility] Comment on above: Performed By: #### U RTPCR #### [facility] [address] [place] [address] Dr. Dwight Waters HDL NORMAL > or = 60 mg/dl - LO W CARDIOVASCULAR RISK <40 mg/dl - HIGH CARDIOVASCULAR RISK Normal [facility] Comment on above: Performed By: #### U RTPCR #### [facility] [address] [address] [address] Dwight Waters LDL CALC NORMAL SEE BELOW Normal [facility] Comment on above: Result Comment: <100 mg/dl OPTIMAL 100 - 129 mg/dl NEAR OR ABOVE OPTIMAL 130 - 159 mg/dl BORDERLINE HIGH 160 - 189 mg/dl HIGH >190 mg/dl VERY HIGH Performed By: #### U RTPCR #### [facility] [address] [address] [address] Dwight Waters Triglyceride [Mass/Vol] 50 mg/dL Normal <=150 [facility] Comment on above: Performed By: #### U RTPCR #### [facility] [address] [address] [address] Dwight Waters VLDL CALC 10.0 mg/dL Normal [facility] Comment on above: Performed By: #### U RTPCR #### [facility] [address] [place] [address] Dr. Dwight Waters MAGNESIUMon 12-29-2022 Magnesium [Mass/Vol] 1.6 mg/dL Critically low 1.8-2.4 [facility] Comment on above: Performed By: #### C BC #### [facility] [address] [place] [address] Dr. Dwight Waters RENAL FUNCTION PANELon 12-29 Albumin [Mass/Vol] 3.9 g/dL Normal 3.4-5.0 [facility] Comment on above: Performed By: #### C BC #### [facility] [address] [place] [address] Dr. Dwight Waters Calcium [Mass/Vol] 9.2 mg/dL Normal 8.5-10.1 [facility] Comment on above: Performed By: #### C BC #### [facility] [address] [place] [address] Dr. Dwight Waters Chloride [Moles/Vol] 109 mmol/L Critically high 98-107 [facility] Comment on above: Performed By: #### C BC #### [facility] [address] [place] [address] Dr. Dwight Waters CO2 [Moles/Vol] 27.0 mmol/L Normal 21.0-32.0 [facility] Comment on above: Performed By: #### C BC #### [facility] [address] [place] [address] Dr. Dwight Waters Creatinine [Mass/Vol] 1.02 mg/dL Normal 0.70-1.30 [facility] Comment on above: Performed By: #### C BC #### [facility] [address] [place] [address] Dr. Dwight Waters EGFR-AF [facility] >60 Normal >=60 [facility] Comment on above: Performed By: #### C BC #### [facility] [address] [place] [address] Dr. Dwight Waters EGFR-NON AF [facility] >60 Normal >=60 [facility] Comment on above: Performed By: #### C BC #### [facility] [address] [place] [address] Dr. Dwight Waters Glucose [Mass/Vol] 117 mg/dL Critically high 74-106 [facility] Comment on above: Performed By: #### C BC #### [facility] [address] [address] [address] Dwight Waters Phosphate [Mass/Vol] 3.2 mg/dL Normal 2.6-4.7 [facility] Comment on above: Performed By: #### C BC #### [facility] [address] [place] [address] Dr. Dwight Waters Potassium [Moles/Vol] 4.1 mmol/L Normal 3.5-5.1 [facility] Comment on above: Performed By: #### C BC #### [facility] [address] [place] [address] Dr. Dwight Waters Sodium [Moles/Vol] 144 mmol/L Normal 136-145 [facility] Comment on above: Performed By: #### C BC #### [facility] [address] [place] [address] Dr. Dwight Waters Urea nitrogen [Mass/Vol] 13.0 mg/dL Normal 7.0-18.0 [facility] Comment on above: Performed By: #### C BC #### [facility] [address] [place] [address] Dr. Dwight Albert 12-29-2022 AST [Catalytic activity/Vol] 21 U/L Normal 15-37 [facility] Comment on above: Performed By: #### C BC #### [facility] [address] [place] [address] Dr. Dwight Osei 12-29-2022 ALT [Catalytic activity/Vol] 32 U/L Normal 16-63 [facility] Comment on above: Performed By: #### C BC #### [facility] [address] [place] [address] Dr. Dwight Waters URINE T PROTEIN CREAT RATIOo n 01-30-2023 Protein (U) [Mass/Vol] 14.3 mg/dL Critically high <=12.0 [facility] Comment on above: Performed By: #### U RTPCR #### [facility] [address] [place] [address] Dr. Dwight Waters UR PROT CREAT RAT 0.17 Normal [facility] Comment on above: Performed By: #### U RTPCR #### [facility] [address] [address] [address] Dwight Waters URINE CREAT 86.58 mg/dL Normal 20.00-300.00 [facility] Comment on above: Performed By: #### U RTPCR #### [facility] [address] [place] [address] Dr. Dwight Waters FK506 (TACROLIMUS) WHOLE BLO ODon 11-06-2022 Tacrolimus (FK506), Blood 4.9 ng/mL Normal 2.0-20.0 [facility] Comment on above: Result Comment: Trou gh (immediately following transplant) 15.0 . Trough (steady state, 2 weeks or more after transplant): 3.0 - 8.0 . Performed by LC-MS/MS technology. Performed By: #### U RTPCR #### [facility] [address] [place] [address] Dr. Dwight Waters ALKALINE PHOSPHAon ALP [Catalytic activity/Vol] 86 U/L Normal 46-116 [facility] Comment on above: Performed By: #### U RTPCR #### [facility] [address] [place] [address] Dr. Dwight Waters BILIRUBIN CONJUGATED (DIRECT )on 11-04-2022 BILI, CONJUGATED 0.2 mg/dL Normal 0.0-0.2 [facility] Comment on above: Performed By: #### U RTPCR #### [facility] [address] [place] [address] Dr. Dwight Waters BILIRUBIN TOTALon 11-04-2022 Bilirubin [Mass/Vol] 0.8 mg/dL Normal 0.2-1.0 [facility] Comment on above: Performed By: #### U RTPCR #### [facility] [address] [address] [address] Dwight Waters CBC AUTO DIFFon 11-04-2022 BASO # 0.1 103/ul Normal 0.0-0.1 [facility] Comment on above: Performed By: #### U RTPCR #### [facility] [address] [place] [address] Dr. Dwight Waters Basophils/100 WBC (Bld) 0.9 % Normal 0.2-2.0 [facility] Comment on above: Performed By: #### U RTPCR #### [facility] [address] [place] [address] Dr. Dwight Waters EO # 0.2 103/ul Normal 0.0-0.7 [facility] Comment on above: Performed By: #### U RTPCR #### [facility] [address] [place] [address] Dr. Dwight Waters Eosinophils/100 WBC (Bld) 3.7 % Normal 0.9-7.0 [facility] Comment on above: Performed By: #### U RTPCR #### [facility] [address] [place] [address] Dr. Dwight Waters Erythrocyte distribution width (RBC) [Ratio] 12.9 % Normal 11.0-15.0 [facility] Comment on above: Performed By: #### U RTPCR #### [facility] [address] [place] [address] Dr. Dwight Waters Hematocrit (Bld) [Volume fraction] 48.3 % Normal 42.0-54.0 [facility] Comment on above: Performed By: #### U RTPCR #### [facility] [address] [place] [address] Dr. Dwight Waters Hemoglobin (Bld) [Mass/Vol] 15.6 g/dL Normal 14.0-18.0 [facility] Comment on above: Performed By: #### U RTPCR #### [facility] [address] [place] [address] Dr. Dwight Waters IG # 0.01 10e3/ul Normal 0.00-0.03 [facility] Comment on above: Performed By: #### U RTPCR #### [facility] [address] [place] [address] Dr. Dwight Waters IG % 0.2 % Normal 0.0-0.5 [facility] Comment on above: Performed By: #### U RTPCR #### [facility] [address] [place] [address] Dr. Dwight Waters LYMPH # 1.9 103/ul Normal 1.2-3.8 [facility] Comment on above: Performed By: #### U RTPCR #### [facility] [address] [place] [address] Dr. Dwight Waters Lymphocytes/100 WBC (Bld) 33.0 % Normal 20.5-60.0 [facility] Comment on above: Performed By: #### U RTPCR #### [facility] [address] [place] [address] Dr. Dwight Waters MANUAL DIFF REQ NO Normal [facility] Comment on above: Performed By: #### U RTPCR #### [facility] [address] [place] [address] Dr. Dwight Waters MCH (RBC) [Entitic mass] 27.6 pg Normal 25.9-34.0 [facility] Comment on above: Performed By: #### U RTPCR #### [facility] [address] [place] [address] Dr. Dwight Waters MCHC (RBC) [Mass/Vol] 32.3 g/dL Normal 29.9-35.2 [facility] Comment on above: Performed By: #### U RTPCR #### [facility] [address] [place] [address] Dr. Dwight Waters MCV (RBC) [Entitic vol] 85.5 fL Normal 80.0-94.0 [facility] Comment on above: Performed By: #### U RTPCR #### [facility] [address] [place] [address] Dr. Dwight Waters MONO # 0.5 103/ul Normal 0.3-0.8 [facility] Comment on above: Performed By: #### U RTPCR #### [facility] [address] [address] [address] Dwight Waters Monocytes/100 WBC (Bld) 8.8 % Normal 1.7-12.0 [facility] Comment on above: Performed By: #### U RTPCR #### [facility] [address] [address] [address] Dwight Waters NEUT # 3.1 103/ul Normal 1.4-6.5 [facility] Comment on above: Performed By: #### U RTPCR #### [facility] [address] [address] [address] Dwight Waters Neutrophils/100 WBC (Bld) 53.4 % Normal 43.0-75.0 [facility] Comment on above: Performed By: #### U RTPCR #### [facility] [address] [place] [address] Dr. Dwight Waters Platelet mean volume (Bld) [Entitic vol] 9.2 fL Critically low 9.5-13.5 [facility] Comment on above: Performed By: #### U RTPCR #### [facility] [address] [place] [address] Dr. Dwight Waters PLT 255 103/ul Normal 150-450 [facility] Comment on above: Performed By: #### U RTPCR #### [facility] [address] [place] [address] Dr. Dwight Waters RBC 5.65 106/ul Normal 4.70-6.10 [facility] Comment on above: Performed By: #### U RTPCR #### [facility] [address] [place] [address] Dr. Dwight Waters WBC 5.7 103/ul Normal 4.0-11.0 [facility] Comment on above: Performed By: #### U RTPCR #### [facility] [address] [place] [address] Dr. Dwight Waters GGTon 11-04-2022 Gamma glutamyl transferase [Catalytic activity/Vol] 22 U/L Normal 15-85 [facility] Comment on above: Performed By: #### U RTPCR #### [facility] [address] [address] [address] Dwight Waters MAGNESIUMon 11-04-2022 Magnesium [Mass/Vol] 1.8 mg/dL Normal 1.8-2.4 [facility] Comment on above: Performed By: #### U RTPCR #### [facility] [address] [place] [address] Dr. Dwight Waters RENAL FUNCTION PANELon 11-04 Albumin [Mass/Vol] 3.8 g/dL Normal 3.4-5.0 [facility] Comment on above: Performed By: #### U RTPCR #### [facility] [address] [place] [address] Dr. Dwight Waters Calcium [Mass/Vol] 9.3 mg/dL Normal 8.5-10.1 [facility] Comment on above: Performed By: #### U RTPCR #### [facility] [address] [place] [address] Dr. Dwight Waters Chloride [Moles/Vol] 107 mmol/L Normal 98-107 [facility] Comment on above: Performed By: #### U RTPCR #### [facility] [address] [place] [address] Dr. Dwight Waters CO2 [Moles/Vol] 29.2 mmol/L Normal 21.0-32.0 [facility] Comment on above: Performed By: #### U RTPCR #### [facility] [address] [place] [address] Dr. Dwight Waters Creatinine [Mass/Vol] 1.07 mg/dL Normal 0.70-1.30 [facility] Comment on above: Performed By: #### U RTPCR #### [facility] [address] [place] [address] Dr. Dwight Waters EGFR-AF [facility] >60 Normal >=60 [facility] Comment on above: Performed By: #### U RTPCR #### [facility] [address] [place] [address] Dr. Dwight Waters EGFR-NON AF [facility] >60 Normal >=60 [facility] Comment on above: Performed By: #### U RTPCR #### [facility] [address] [address] [address] Dwight Waters Glucose [Mass/Vol] 106 mg/dL Normal 74-106 [facility] Comment on above: Performed By: #### U RTPCR #### [facility] [address] [address] [address] Dwight Waters Phosphate [Mass/Vol] 2.8 mg/dL Normal 2.6-4.7 [facility] Comment on above: Performed By: #### U RTPCR #### [facility] [address] [address] [address] Dwight Waters Potassium [Moles/Vol] 4.1 mmol/L Normal 3.5-5.1 [facility] Comment on above: Performed By: #### U RTPCR #### [facility] [address] [place] [address] Dr. Dwight Waters Sodium [Moles/Vol] 143 mmol/L Normal 136-145 [facility] Comment on above: Performed By: #### U RTPCR #### [facility] [address] [place] [address] Dr. Dwight Waters Urea nitrogen [Mass/Vol] 12.0 mg/dL Normal 7.0-18.0 [facility] Comment on above: Performed By: #### U RTPCR #### [facility] [address] [address] [address] Diwght Albert 11-04-2022 AST [Catalytic activity/Vol] 19 U/L Normal 15-37 [facility] Comment on above: Performed By: #### U RTPCR #### [facility] [address] [place] [address] Dr. Dwight Osei 11-04-2022 ALT [Catalytic activity/Vol] 28 U/L Normal 16-63 [facility] Comment on above: Performed By: #### U RTPCR #### [facility] [address] [place] [address] Dr. Dwight Waters URINE T PROTEIN CREAT RATIOo n 11-04-2022 Protein (U) [Mass/Vol] 10.7 mg/dL Normal <=12.0 [facility] Comment on above: Performed By: #### U RTPCR #### [facility] [address] [place] [address] Dr. Dwight Waters UR PROT CREAT RAT 0.13 Normal [facility] Comment on above: Performed By: #### U RTPCR #### [facility] [address] [address] [address] Dwight Waters URINE CREAT 84.50 mg/dL Normal 20.00-300.00 [facility] Comment on above: Performed By: #### U RTPCR #### [facility] [address] [place] [address] Dr. Dwight Waters FK506 (TACROLIMUS) WHOLE BLO ODon 09-18-2022 Tacrolimus (FK506), Blood 4.6 ng/mL Normal 2.0-20.0 [facility] Comment on above: Result Comment: Trou gh (immediately following transplant) 15.0 . Trough (steady state, 2 weeks or more after transplant): 3.0 - 8.0 . Performed by LC-MS/MS technology. Performed By: #### U RTPCR #### [facility] [address] [place] [address] Dr. Dwight Waters BK VIRUS PCR QUANTon 022 BKV DNA QUANT PCR PLASMA Negative Normal Negative [facility] Comment on above: Result Comment: No B K DNA detected. . The linear range of the assay is 22 - 100,000,000 IU/mL. Performed By: #### U RTPCR #### [facility] [address] [place] [address] Dr. Dwight Waters Log10 BKV DNA Plasma Normal [facility] Comment on above: Performed By: #### U RTPCR #### [facility] [address] [place] [address] Dr. Dwight Waters ALKALINE PHOSPHAon 2 ALP [Catalytic activity/Vol] 92 U/L Normal 46-116 [facility] Comment on above: Performed By: #### U RTPCR #### [facility] [address] [place] [address] Dr. Dwight Waters BILIRUBIN CONJUGATED (DIRECT )on 09-15-2022 BILI, CONJUGATED 0.3 mg/dL Critically high 0.0-0.2 [facility] Comment on above: Performed By: #### U RTPCR #### [facility] [address] [place] [address] Dr. Dwight Waters BILIRUBIN TOTALon 09-15-2022 Bilirubin [Mass/Vol] 1.1 mg/dL Critically high 0.2-1.0 [facility] Comment on above: Performed By: #### U RTPCR #### [facility] [address] [place] [address] Dr. Dwight Waters CBC AUTO DIFFon 09-15-2022 BASO # 0.1 103/ul Normal 0.0-0.1 [facility] Comment on above: Performed By: #### C BC #### [facility] [address] [place] [address] Dr. Dwight Waters Basophils/100 WBC (Bld) 0.8 % Normal 0.2-2.0 [facility] Comment on above: Performed By: #### C BC #### [facility] [address] [place] [address] Dr. Dwight Waters EO # 0.2 103/ul Normal 0.0-0.7 [facility] Comment on above: Performed By: #### C BC #### [facility] [address] [place] [address] Dr. Dwight Waters Eosinophils/100 WBC (Bld) 3.5 % Normal 0.9-7.0 [facility] Comment on above: Performed By: #### C BC #### [facility] [address] [place] [address] Dr. Dwight Waters Erythrocyte distribution width (RBC) [Ratio] 13.0 % Normal 11.0-15.0 [facility] Comment on above: Performed By: #### C BC #### [facility] [address] [place] [address] Dr. Dwight Waters Hematocrit (Bld) [Volume fraction] 50.0 % Normal 42.0-54.0 [facility] Comment on above: Performed By: #### C BC #### [facility] [address] [place] [address] Dr. Dwight Waters Hemoglobin (Bld) [Mass/Vol] 16.0 g/dL Normal 14.0-18.0 [facility] Comment on above: Performed By: #### C BC #### [facility] [address] [place] [address] Dr. Dwight Waters IG # 0.02 10e3/ul Normal 0.00-0.03 [facility] Comment on above: Performed By: #### C BC #### [facility] [address] [place] [address] Dr. Dwight Waters IG % 0.3 % Normal 0.0-0.5 [facility] Comment on above: Performed By: #### C BC #### [facility] [address] [place] [address] Dr. Dwight Waters LYMPH # 1.8 103/ul Normal 1.2-3.8 [facility] Comment on above: Performed By: #### C BC #### [facility] [address] [place] [address] Dr. Dwight Waters Lymphocytes/100 WBC (Bld) 26.5 % Normal 20.5-60.0 [facility] Comment on above: Performed By: #### C BC #### [facility] [address] [place] [address] Dr. Dwight Waters MANUAL DIFF REQ NO Normal [facility] Comment on above: Performed By: #### C BC #### [facility] [address] [place] [address] Dr. Dwight Waters MCH (RBC) [Entitic mass] 28.1 pg Normal 25.9-34.0 [facility] Comment on above: Performed By: #### C BC #### [facility] [address] [place] [address] Dr. Dwight Waters MCHC (RBC) [Mass/Vol] 32.0 g/dL Normal 29.9-35.2 [facility] Comment on above: Performed By: #### C BC #### [facility] [address] [address] [address] Dwight Waters MCV (RBC) [Entitic vol] 87.9 fL Normal 80.0-94.0 [facility] Comment on above: Performed By: #### C BC #### [facility] [address] [address] [address] Dwight Waters MONO # 0.5 103/ul Normal 0.3-0.8 [facility] Comment on above: Performed By: #### C BC #### [facility] [address] [address] [address] Dwight Waters Monocytes/100 WBC (Bld) 8.1 % Normal 1.7-12.0 [facility] Comment on above: Performed By: #### C BC #### [facility] [address] [address] [address] Dwight Waters NEUT # 4.0 103/ul Normal 1.4-6.5 [facility] Comment on above: Performed By: #### C BC #### [facility] [address] [address] [address] Dwight Waters Neutrophils/100 WBC (Bld) 60.8 % Normal 43.0-75.0 [facility] Comment on above: Performed By: #### C BC #### [facility] [address] [address] [address] Dwight Waters Platelet mean volume (Bld) [Entitic vol] 9.4 fL Critically low 9.5-13.5 [facility] Comment on above: Performed By: #### C BC #### [facility] [address] [address] [address] Dwight Waters PLT 265 103/ul Normal 150-450 [facility] Comment on above: Performed By: #### C BC #### [facility] [address] [address] [address] Dwight Waters RBC 5.69 106/ul Normal 4.70-6.10 [facility] Comment on above: Performed By: #### C BC #### [facility] [address] [place] [address] Dr. Dwight Waters WBC 6.6 103/ul Normal 4.0-11.0 [facility] Comment on above: Performed By: #### C BC #### [facility] [address] [place] [address] Dr. Dwight Waters GGTon 09-15-2022 Gamma glutamyl transferase [Catalytic activity/Vol] 23 U/L Normal 15-85 [facility] Comment on above: Performed By: #### U RTPCR #### [facility] [address] [place] [address] Dr. Dwight Waters MAGNESIUMon 09-15-2022 Magnesium [Mass/Vol] 1.8 mg/dL Normal 1.8-2.4 [facility] Comment on above: Performed By: #### U RTPCR #### [facility] [address] [place] [address] Dr. Dwight Waters RENAL FUNCTION PANELon 09-15 Albumin [Mass/Vol] 4.1 g/dL Normal 3.4-5.0 [facility] Comment on above: Performed By: #### C BC #### [facility] [address] [place] [address] Dr. Dwight Waters Calcium [Mass/Vol] 9.3 mg/dL Normal 8.5-10.1 [facility] Comment on above: Performed By: #### C BC #### [facility] [address] [place] [address] Dr. Dwight Waters Chloride [Moles/Vol] 107 mmol/L Normal 98-107 [facility] Comment on above: Performed By: #### C BC #### [facility] [address] [place] [address] Dr. Dwight Waters CO2 [Moles/Vol] 25.6 mmol/L Normal 21.0-32.0 [facility] Comment on above: Performed By: #### C BC #### [facility] [address] [place] [address] Dr. Dwight Waters Creatinine [Mass/Vol] 1.01 mg/dL Normal 0.70-1.30 [facility] Comment on above: Performed By: #### C BC #### [facility] [address] [place] [address] Dr. Dwight Waters EGFR-AF [facility] >60 Normal >=60 [facility] Comment on above: Performed By: #### C BC #### [facility] [address] [place] [address] Dr. Dwight Waters EGFR-NON AF [facility] >60 Normal >=60 [facility] Comment on above: Performed By: #### C BC #### [facility] [address] [address] [address] Dwight Waters Glucose [Mass/Vol] 119 mg/dL Critically high 74-106 [facility] Comment on above: Performed By: #### C BC #### [facility] [address] [place] [address] Dr. Dwight Waters Phosphate [Mass/Vol] 2.8 mg/dL Normal 2.6-4.7 [facility] Comment on above: Performed By: #### C BC #### [facility] [address] [place] [address] Dr. Dwight Waters Potassium [Moles/Vol] 4.0 mmol/L Normal 3.5-5.1 [facility] Comment on above: Performed By: #### C BC #### [facility] [address] [place] [address] Dr. Dwight Waters Sodium [Moles/Vol] 141 mmol/L Normal 136-145 [facility] Comment on above: Performed By: #### C BC #### [facility] [address] [place] [address] Dr. Dwight Waters Urea nitrogen [Mass/Vol] 15.0 mg/dL Normal 7.0-18.0 [facility] Comment on above: Performed By: #### C BC #### [facility] [address] [place] [address] Dr. Dwight Waters SGOTon 09-15-2022 AST [Catalytic activity/Vol] 18 U/L Normal 15-37 [facility] Comment on above: Performed By: #### U RTPCR #### [facility] [address] [address] [address] Dwight Waters SGPTon 09-15-2022 ALT [Catalytic activity/Vol] 32 U/L Normal 16-63 [facility] Comment on above: Performed By: #### C BC #### [facility] [address] [address] [address] Dwight Waters URINE T PROTEIN CREAT RATIOo n 09-15-2022 Protein (U) [Mass/Vol] 14.1 mg/dL Critically high <=12.0 [facility] Comment on above: Performed By: #### U RTPCR #### [facility] [address] [place] [address] Dr. Dwight Waters UR PROT CREAT RAT 0.14 Normal [facility] Comment on above: Performed By: #### U RTPCR #### [facility] [address] [place] [address] Dr. Dwight Waters URINE CREAT 98.89 mg/dL Normal 20.00-300.00 [facility] Comment on above: Performed By: #### U RTPCR #### [facility] [address] [place] [address] Dr. Dwight Waters US CAROTID ART BILon [...] Date: 2022-08-28 13:20 Normal [facility] FK506 (TACROLIMUS) WHOLE BLO ODon 08-17-2022 Tacrolimus (FK506), Blood 9.9 ng/mL Normal 2.0-20.0 [facility] Comment on above: Result Comment: Trou gh (immediately following transplant) 15.0 . Trough (steady state, 2 weeks or more after transplant): 3.0 - 8.0 . Performed by LC-MS/MS technology. Performed By: #### F [id number] #### [facility] [address] [place] [address] Dr. Dwight Waters BK VIRUS PCR QUANTon 022 BKV DNA QUANT PCR PLASMA Negative Normal Negative [facility] Comment on above: Result Comment: No B K DNA detected. . The linear range of the assay is 22 - 100,000,000 IU/mL. Performed By: #### U RTPCR #### [facility] [address] [place] [address] Dr. Dwight Waters Log10 BKV DNA Plasma Normal [facility] Comment on above: Performed By: #### U RTPCR #### [facility] [address] [place] [address] Dr. Dwight Waters ALBUMINon 08-14-2022 Albumin [Mass/Vol] 4.2 g/dL Normal 3.4-5.0 [facility] Comment on above: Performed By: #### F [id number] #### [facility] [address] [place] [address] Dr. Dwight Waters ALKALINE PHOSPHAon ALP [Catalytic activity/Vol] 92 U/L Normal 46-116 [facility] Comment on above: Performed By: #### C BC #### [facility] [address] [place] [address] Dr. Dwight Waters BILIRUBIN CONJUGATED (DIRECT )on 08-14-2022 BILI, CONJUGATED 0.3 mg/dL Critically high 0.0-0.2 [facility] Comment on above: Performed By: #### F [id number] #### [facility] [address] [place] [address] Dr. Dwight Waters BILIRUBIN TOTALon 08-14-2022 Bilirubin [Mass/Vol] 1.5 mg/dL Critically high 0.2-1.0 [facility] Comment on above: Performed By: #### F [id number] #### [facility] [address] [place] [address] Dr. Dwight Waters BUNon 08-14-2022 Urea nitrogen [Mass/Vol] 11.0 mg/dL Normal 7.0-18.0 [facility] Comment on above: Performed By: #### C BC #### [facility] [address] [place] [address] Dr. Dwight Waters CALCIUMon 08-14-2022 Calcium [Mass/Vol] 9.4 mg/dL Normal 8.5-10.1 [facility] Comment on above: Performed By: #### F [id number] #### [facility] [address] [place] [address] Dr. Dwight Waters CBC AUTO DIFFon 08-14-2022 BASO # 0.0 103/ul Normal 0.0-0.1 [facility] Comment on above: Performed By: #### C MP #### [facility] [address] [place] [address] Dr. Dwight Waters Basophils/100 WBC (Bld) 0.5 % Normal 0.2-2.0 [facility] Comment on above: Performed By: #### C MP #### [facility] [address] [place] [address] Dr. Dwight Waters EO # 0.2 103/ul Normal 0.0-0.7 [facility] Comment on above: Performed By: #### C MP #### [facility] [address] [place] [address] Dr. Dwight Waters Eosinophils/100 WBC (Bld) 2.6 % Normal 0.9-7.0 [facility] Comment on above: Performed By: #### C MP #### [facility] [address] [place] [address] Dr. Dwight Waters Erythrocyte distribution width (RBC) [Ratio] 13.1 % Normal 11.0-15.0 [facility] Comment on above: Performed By: #### C MP #### [facility] [address] [place] [address] Dr. Dwight Waters Hematocrit (Bld) [Volume fraction] 47.0 % Normal 42.0-54.0 [facility] Comment on above: Performed By: #### C MP #### [facility] [address] [place] [address] Dr. Dwight Waters Hemoglobin (Bld) [Mass/Vol] 15.3 g/dL Normal 14.0-18.0 [facility] Comment on above: Performed By: #### C MP #### [facility] [address] [place] [address] Dr. Dwight Waters IG # 0.01 10e3/ul Normal 0.00-0.03 [facility] Comment on above: Performed By: #### C MP #### [facility] [address] [place] [address] Dr. Dwight Waters IG % 0.1 % Normal 0.0-0.5 [facility] Comment on above: Performed By: #### C MP #### [facility] [address] [place] [address] Dr. Dwight Waters LYMPH # 2.3 103/ul Normal 1.2-3.8 [facility] Comment on above: Performed By: #### C MP #### [facility] [address] [place] [address] Dr. Dwight Waters Lymphocytes/100 WBC (Bld) 29.8 % Normal 20.5-60.0 [facility] Comment on above: Performed By: #### C MP #### [facility] [address] [place] [address] Dr. Dwight Waters MANUAL DIFF REQ NO Normal [facility] Comment on above: Performed By: #### C MP #### [facility] [address] [place] [address] Dr. Dwight Waters MCH (RBC) [Entitic mass] 28.2 pg Normal 25.9-34.0 [facility] Comment on above: Performed By: #### C MP #### [facility] [address] [place] [address] Dr. Dwight Waters MCHC (RBC) [Mass/Vol] 32.6 g/dL Normal 29.9-35.2 [facility] Comment on above: Performed By: #### C MP #### [facility] [address] [place] [address] Dr. Dwight Waters MCV (RBC) [Entitic vol] 86.7 fL Normal 80.0-94.0 [facility] Comment on above: Performed By: #### C MP #### [facility] [address] [place] [address] Dr. Dwight Waters MONO # 0.7 103/ul Normal 0.3-0.8 [facility] Comment on above: Performed By: #### C MP #### [facility] [address] [place] [address] Dr. Dwight Waters Monocytes/100 WBC (Bld) 8.5 % Normal 1.7-12.0 [facility] Comment on above: Performed By: #### C MP #### [facility] [address] [place] [address] Dr. Dwight Waters NEUT # 4.5 103/ul Normal 1.4-6.5 [facility] Comment on above: Performed By: #### C MP #### [facility] [address] [place] [address] Dr. Dwight Waters Neutrophils/100 WBC (Bld) 58.5 % Normal 43.0-75.0 [facility] Comment on above: Performed By: #### C MP #### [facility] [address] [place] [address] Dr. Dwight Waters Platelet mean volume (Bld) [Entitic vol] 9.7 fL Normal 9.5-13.5 [facility] Comment on above: Performed By: #### C MP #### [facility] [address] [place] [address] Dr. Dwight Waters PLT 266 103/ul Normal 150-450 [facility] Comment on above: Performed By: #### C MP #### [facility] [address] [place] [address] Dr. Dwight Waters RBC 5.42 106/ul Normal 4.70-6.10 [facility] Comment on above: Performed By: #### C MP #### [facility] [address] [place] [address] Dr. Dwight Waters WBC 7.6 103/ul Normal 4.0-11.0 [facility] Comment on above: Performed By: #### C MP #### [facility] [address] [place] [address] Dr. Dwight Waters CHLORIDEon 08-14-2022 Chloride [Moles/Vol] 104 mmol/L Normal 98-107 [facility] Comment on above: Performed By: #### C BC #### [facility] [address] [place] [address] Dr. Dwight Waters CO2on 08-14-2022 CO2 [Moles/Vol] 27.9 mmol/L Normal 21.0-32.0 [facility] Comment on above: Performed By: #### C BC #### [facility] [address] [place] [address] Dr. Dwight Waters CREATININEon 08-14-2022 Creatinine [Mass/Vol] 1.08 mg/dL Normal 0.70-1.30 [facility] Comment on above: Performed By: #### C BC #### [facility] [address] [place] [address] Dr. Dwight Waters EGFR-AF [facility] >60 Normal >=60 [facility] Comment on above: Performed By: #### C BC #### [facility] [address] [place] [address] Dr. Dwight Waters EGFR-NON AF [facility] >60 Normal >=60 [facility] Comment on above: Performed By: #### C BC #### [facility] [address] [place] [address] Dr. Dwight Waters GGTon 08-14-2022 Gamma glutamyl transferase [Catalytic activity/Vol] 24 U/L Normal 15-85 [facility] Comment on above: Performed By: #### F [id number] #### [facility] [address] [place] [address] Dr. Dwight Waters GLUCOSE BLOODon 08-14-2022 Glucose [Mass/Vol] 111 mg/dL Critically high 74-106 [facility] Comment on above: Performed By: #### C BC #### [facility] [address] [place] [address] Dr. Dwight Waters MAGNESIUMon 08-14-2022 Magnesium [Mass/Vol] 1.4 mg/dL Critically low 1.8-2.4 [facility] Comment on above: Performed By: #### C BC #### [facility] [address] [place] [address] Dr. Dwight Waters NAon 08-14-2022 Sodium [Moles/Vol] 140 mmol/L Normal 136-145 [facility] Comment on above: Performed By: #### F [id number] #### [facility] [address] [place] [address] Dr. Dwight Waters PHOSPHORUSon 08-14-2022 Phosphate [Mass/Vol] 3.1 mg/dL Normal 2.6-4.7 [facility] Comment on above: Performed By: #### C BC #### [facility] [address] [place] [address] Dr. Dwight Waters POTASSIUMon 08-14-2022 Potassium [Moles/Vol] 3.5 mmol/L Normal 3.5-5.1 [facility] Comment on above: Performed By: #### C BC #### [facility] [address] [place] [address] Dr. Dwight Albert 08-14-2022 AST [Catalytic activity/Vol] 17 U/L Normal 15-37 [facility] Comment on above: Performed By: #### F [id number] #### [facility] [address] [place] [address] Dr. Dwight Waters SGPTon 08-14-2022 ALT [Catalytic activity/Vol] 22 U/L Normal 16-63 [facility] Comment on above: Performed By: #### F [id number] #### [facility] [address] [place] [address] Dr. Dwight Waters URINE T PROTEIN CREAT RATIOo n 08-14-2022 Protein (U) [Mass/Vol] 10.7 mg/dL Normal <=12.0 [facility] Comment on above: Performed By: #### F [id number] #### [facility] [address] [place] [address] Dr. Dwight Waters UR PROT CREAT RAT 0.10 Normal [facility] Comment on above: Performed By: #### F [id number] #### [facility] [address] [address] [address] Dwight Waters URINE CREAT 104.28 mg/dL Normal 20.00-300.00 [facility] Comment on above: Performed By: #### F [id number] #### [facility] [id number] Dwight Waters NEPHROSTOMY TUBE REMOVALon 0 [...] physician present for entire procedure: yes U [facility] Radiology Study observation (narrative) [facility] FK506 (TACROLIMUS) WHOLE BLO ODon 07-06-2022 Tacrolimus (FK506), Blood 9.5 ng/mL Normal 2.0-20.0 [facility] Comment on above: Result Comment: Trou gh (immediately following transplant) 15.0 . Trough (steady state, 2 weeks or more after transplant): 3.0 - 8.0 . Performed by LC-MS/MS technology. Performed By: #### C MP #### [facility] [address] [place] [address] Dr. Dwight Waters ALBUMINon 07-03-2022 Albumin [Mass/Vol] 3.7 g/dL Normal 3.4-5.0 [facility] Comment on above: Performed By: #### U RTPCR #### [facility] [address] [place] [address] Dr. Dwight Waters ALKALINE PHOSPHAon ALP [Catalytic activity/Vol] 76 U/L Normal 46-116 [facility] Comment on above: Performed By: #### U RTPCR #### [facility] [address] [place] [address] Dr. Dwight Waters BILIRUBIN CONJUGATED (DIRECT )on 07-03-2022 BILI, CONJUGATED 0.3 mg/dL Critically high 0.0-0.2 [facility] Comment on above: Performed By: #### C BC #### [facility] [address] [place] [address] Dr. Dwight Waters BILIRUBIN TOTALon 07-03-2022 Bilirubin [Mass/Vol] 1.4 mg/dL Critically high 0.2-1.0 [facility] Comment on above: Performed By: #### C BC #### [facility] [address] [place] [address] Dr. Dwight Waters BUNon 07-03-2022 Urea nitrogen [Mass/Vol] 15.0 mg/dL Normal 7.0-18.0 [facility] Comment on above: Performed By: #### C BC #### [facility] [address] [place] [address] Dr. Dwight Waters CALCIUMon 07-03-2022 Calcium [Mass/Vol] 9.4 mg/dL Normal 8.5-10.1 [facility] Comment on above: Performed By: #### U RTPCR #### [facility] [address] [place] [address] Dr. Dwight Waters CBC AUTO DIFFon 07-03-2022 BASO # 0.0 103/ul Normal 0.0-0.1 [facility] Comment on above: Performed By: #### U RTPCR #### [facility] [address] [place] [address] Dr. Dwight Waters Basophils/100 WBC (Bld) 0.6 % Normal 0.2-2.0 [facility] Comment on above: Performed By: #### U RTPCR #### [facility] [address] [place] [address] Dr. Dwight Waters EO # 0.2 103/ul Normal 0.0-0.7 [facility] Comment on above: Performed By: #### U RTPCR #### [facility] [address] [place] [address] Dr. Dwight Waters Eosinophils/100 WBC (Bld) 3.5 % Normal 0.9-7.0 [facility] Comment on above: Performed By: #### U RTPCR #### [facility] [address] [place] [address] Dr. Dwight Waters Erythrocyte distribution width (RBC) [Ratio] 12.9 % Normal 11.0-15.0 [facility] Comment on above: Performed By: #### U RTPCR #### [facility] [address] [place] [address] Dr. Dwight Waters Hematocrit (Bld) [Volume fraction] 44.2 % Normal 42.0-54.0 [facility] Comment on above: Performed By: #### U RTPCR #### [facility] [address] [place] [address] Dr. Dwight Waters Hemoglobin (Bld) [Mass/Vol] 14.6 g/dL Normal 14.0-18.0 [facility] Comment on above: Performed By: #### U RTPCR #### [facility] [address] [place] [address] Dr. Dwight Waters IG # 0.02 10e3/ul Normal 0.00-0.03 [facility] Comment on above: Performed By: #### U RTPCR #### [facility] [address] [place] [address] Dr. Dwight Waters IG % 0.3 % Normal 0.0-0.5 [facility] Comment on above: Performed By: #### U RTPCR #### [facility] [address] [place] [address] Dr. Dwight Waters LYMPH # 2.0 103/ul Normal 1.2-3.8 [facility] Comment on above: Performed By: #### U RTPCR #### [facility] [address] [place] [address] Dr. Dwight Waters Lymphocytes/100 WBC (Bld) 28.4 % Normal 20.5-60.0 [facility] Comment on above: Performed By: #### U RTPCR #### [facility] [address] [place] [address] Dr. Dwight Waters MANUAL DIFF REQ NO Normal [facility] Comment on above: Performed By: #### U RTPCR #### [facility] [address] [place] [address] Dr. Dwight Waters MCH (RBC) [Entitic mass] 28.6 pg Normal 25.9-34.0 [facility] Comment on above: Performed By: #### U RTPCR #### [facility] [address] [place] [address] Dr. Dwight Waters MCHC (RBC) [Mass/Vol] 33.0 g/dL Normal 29.9-35.2 [facility] Comment on above: Performed By: #### U RTPCR #### [facility] [address] [place] [address] Dr. Dwight Waters MCV (RBC) [Entitic vol] 86.7 fL Normal 80.0-94.0 [facility] Comment on above: Performed By: #### U RTPCR #### [facility] [address] [place] [address] Dr. Dwight Waters MONO # 0.6 103/ul Normal 0.3-0.8 [facility] Comment on above: Performed By: #### U RTPCR #### [facility] [address] [place] [address] Dr. Dwight Waters Monocytes/100 WBC (Bld) 9.1 % Normal 1.7-12.0 [facility] Comment on above: Performed By: #### U RTPCR #### [facility] [address] [place] [address] Dr. Dwight Waters NEUT # 4.0 103/ul Normal 1.4-6.5 [facility] Comment on above: Performed By: #### U RTPCR #### [facility] [address] [place] [address] Dr. Dwight Waters Neutrophils/100 WBC (Bld) 58.1 % Normal 43.0-75.0 [facility] Comment on above: Performed By: #### U RTPCR #### [facility] [address] [place] [address] Dr. Dwight Waters Platelet mean volume (Bld) [Entitic vol] 9.5 fL Normal 9.5-13.5 [facility] Comment on above: Performed By: #### U RTPCR #### [facility] [address] [place] [address] Dr. Dwight Waters PLT 292 103/ul Normal 150-450 [facility] Comment on above: Performed By: #### U RTPCR #### [facility] [address] [place] [address] Dr. Dwight Waters RBC 5.10 106/ul Normal 4.70-6.10 [facility] Comment on above: Performed By: #### U RTPCR #### [facility] [address] [place] [address] Dr. Dwight Waters WBC 6.9 103/ul Normal 4.0-11.0 [facility] Comment on above: Performed By: #### U RTPCR #### [facility] [address] [place] [address] Dr. Dwight Waters CHLORIDEon 07-03-2022 Chloride [Moles/Vol] 108 mmol/L Critically high 98-107 [facility] Comment on above: Performed By: #### C BC #### [facility] [address] [place] [address] Dr. Dwight Waters CO2on 07-03-2022 CO2 [Moles/Vol] 25.2 mmol/L Normal 21.0-32.0 [facility] Comment on above: Performed By: #### C BC #### [facility] [address] [place] [address] Dr. Dwight Waters CREATININEon 07-03-2022 Creatinine [Mass/Vol] 1.03 mg/dL Normal 0.70-1.30 [facility] Comment on above: Performed By: #### U RTPCR #### [facility] [address] [place] [address] Dr. Dwight Waters EGFR-AF [facility] >60 Normal >=60 [facility] Comment on above: Performed By: #### U RTPCR #### [facility] [address] [place] [address] Dr. Dwight Waters EGFR-NON AF [facility] >60 Normal >=60 [facility] Comment on above: Performed By: #### U RTPCR #### [facility] [address] [place] [address] Dr. Dwight Waters GGTon 07-03-2022 Gamma glutamyl transferase [Catalytic activity/Vol] 31 U/L Normal 15-85 [facility] Comment on above: Performed By: #### U RTPCR #### [facility] [address] [place] [address] Dr. Dwight Waters GLUCOSE BLOODon 07-03-2022 Glucose [Mass/Vol] 119 mg/dL Critically high 74-106 [facility] Comment on above: Performed By: #### U RTPCR #### [facility] [address] [place] [address] Dr. Dwight Waters MAGNESIUMon 07-03-2022 Magnesium [Mass/Vol] 1.4 mg/dL Critically low 1.8-2.4 [facility] Comment on above: Performed By: #### C BC #### [facility] [address] [place] [address] Dr. Dwight Waters NAon 07-03-2022 Sodium [Moles/Vol] 142 mmol/L Normal 136-145 [facility] Comment on above: Performed By: #### C MP #### [facility] [address] [place] [address] Dr. Dwight Waters PHOSPHORUSon 07-03-2022 Phosphate [Mass/Vol] 3.4 mg/dL Normal 2.6-4.7 [facility] Comment on above: Performed By: #### C BC #### [facility] [address] [place] [address] Dr. Dwight Waters POTASSIUMon 07-03-2022 Potassium [Moles/Vol] 4.1 mmol/L Normal 3.5-5.1 [facility] Comment on above: Performed By: #### C BC #### [facility] [address] [place] [address] Dr. Dwight Waters SGOTon 07-03-2022 AST [Catalytic activity/Vol] 14 U/L Critically low 15-37 [facility] Comment on above: Performed By: #### C BC #### [facility] [address] [place] [address] Dr. Dwight Waters SGPTon 07-03-2022 ALT [Catalytic activity/Vol] 25 U/L Normal 16-63 [facility] Comment on above: Performed By: #### C BC #### [facility] [address] [place] [address] Dr. Dwight Waters US KIDNEYSon 07-03-2022 US KIDNEYS Ultrasound kidneys, bilateral HISTORY: Transplant of kidney , pain in the right lower quadrant COMPARISON: None. TECHNIQUE: Transabdominal ultrasound imaging of both kidneys was performed. FINDINGS: The ch[place]oot kidneys are diffusely echogenic and atrophic with cortical thinning. The right kidney measures 8.3 x 3.5 x 4.07 m and the left measures 9.9 x 3.8 x 3.6 cm. No hydronephrosis of the chilkoot kidneys. There is a renal transplant in [...] stone involving the renal transplant. 2. Atrophic [place]koot kidneys. 3. Normal bladder. Electronically authenticated by: ARCELIA PIZARRO Date: 2022-07-03 17:22 Normal [facility] CT Abdomen and Pelvis WO geoff sosa 06-27-2022 IMPRESSION: 1. Both [place] kidneys are atrophic with improvement in right-sided [...] Adrenals: Adrenal glands are unremarkable. Kidneys: Both [place] kidneys are atrophic. Interval improvement in right [place] kidney hydronephrosis since May 15, 2022. Status [...] Adrenals: Adrenal glands are unremarkable. Kidneys: Both [place] kidneys are atrophic. Interval improvement in right [place]oot kidney hydronephrosis since May 15, 2022. Status [...] aggressive osseous lesions. IMPRESSION IMPRESSION: 1. Both [place] kidneys are atrophic with improvement in right-sided hydronephrosis since May 15, 2022. 2. 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 No hydronephrosis. No discrete perinephric collection. 3. Partially imaged postsurgical changes related to prior liver transplant. 4. The bladder is decompressed, limiting evaluation. [facility] Radiology Study observation (narrative) [facility] CT Abdomen and Pelvis WO con trastOrdered By: Gera Lu on 06-27-2022 [facility] Work Phone: CBC AUTO DIFFon 06-18-2022 BASO # 0.0 103/ul Normal 0.0-0.1 [facility] Comment on above: Performed By: #### U RTPCR #### [facility] [address] [place] [address] Dr. Dwight Waters Basophils/100 WBC (Bld) 0.5 % Normal 0.2-2.0 [facility] Comment on above: Performed By: #### U RTPCR #### [facility] [address] [address] [address] Dwight Waters EO # 0.2 103/ul Normal 0.0-0.7 [facility] Comment on above: Performed By: #### U RTPCR #### [facility] [address] [address] [address] Dwight Waetrs Eosinophils/100 WBC (Bld) 2.3 % Normal 0.9-7.0 [facility] Comment on above: Performed By: #### U RTPCR #### [facility] [address] [address] [address] Dwight Waters Erythrocyte distribution width (RBC) [Ratio] 12.9 % Normal 11.0-15.0 [facility] Comment on above: Performed By: #### U RTPCR #### [facility] [address] [place] [address] Dr. Dwight Waters Hematocrit (Bld) [Volume fraction] 41.2 % Critically low 42.0-54.0 [facility] Comment on above: Performed By: #### U RTPCR #### [facility] [address] [place] [address] Dr. Dwight Waters Hemoglobin (Bld) [Mass/Vol] 13.3 g/dL Critically low 14.0-18.0 [facility] Comment on above: Performed By: #### U RTPCR #### [facility] [address] [place] [address] Dr. Dwight Waters IG # 0.04 10e3/ul Critically high 0.00-0.03 [facility] Comment on above: Performed By: #### U RTPCR #### [facility] [address] [place] [address] Dr. Dwight Waters IG % 0.5 % Normal 0.0-0.5 [facility] Comment on above: Performed By: #### U RTPCR #### [facility] [address] [place] [address] Dr. Dwight Waters LYMPH # 2.0 103/ul Normal 1.2-3.8 [facility] Comment on above: Performed By: #### U RTPCR #### [facility] [address] [place] [address] Dr. Dwight Waters Lymphocytes/100 WBC (Bld) 22.9 % Normal 20.5-60.0 [facility] Comment on above: Performed By: #### U RTPCR #### [facility] [address] [place] [address] Dr. Dwight Waters MANUAL DIFF REQ NO Normal [facility] Comment on above: Performed By: #### U RTPCR #### [facility] [address] [place] [address] Dr. Dwight Waters MCH (RBC) [Entitic mass] 28.7 pg Normal 25.9-34.0 [facility] Comment on above: Performed By: #### U RTPCR #### [facility] [address] [place] [address] Dr. Dwight Waters MCHC (RBC) [Mass/Vol] 32.3 g/dL Normal 29.9-35.2 [facility] Comment on above: Performed By: #### U RTPCR #### [facility] [address] [address] [address] Dwight Waters MCV (RBC) [Entitic vol] 88.8 fL Normal 80.0-94.0 [facility] Comment on above: Performed By: #### U RTPCR #### [facility] [address] [address] [address] Dwight Waters MONO # 0.8 103/ul Normal 0.3-0.8 [facility] Comment on above: Performed By: #### U RTPCR #### [facility] [address] [place] [address] Dr. Dwight Waters Monocytes/100 WBC (Bld) 9.7 % Normal 1.7-12.0 [facility] Comment on above: Performed By: #### U RTPCR #### [facility] [address] [place] [address] Dr. Dwight Waters NEUT # 5.6 103/ul Normal 1.4-6.5 [facility] Comment on above: Performed By: #### U RTPCR #### [facility] [address] [place] [address] Dr. Dwight Waters Neutrophils/100 WBC (Bld) 64.1 % Normal 43.0-75.0 [facility] Comment on above: Performed By: #### U RTPCR #### [facility] [address] [place] [address] Dr. Dwight Waters Platelet mean volume (Bld) [Entitic vol] 10.0 fL Normal 9.5-13.5 [facility] Comment on above: Performed By: #### U RTPCR #### [facility] [address] [place] [address] Dr. Dwight Waters PLT 270 103/ul Normal 150-450 [facility] Comment on above: Performed By: #### U RTPCR #### [facility] [address] [place] [address] Dr. Dwight Waters RBC 4.64 106/ul Critically low 4.70-6.10 [facility] Comment on above: Performed By: #### U RTPCR #### [facility] [address] [address] [address] Dwight Waters WBC 8.7 103/ul Normal 4.0-11.0 [facility] Comment on above: Performed By: #### U RTPCR #### [facility] [address] [place] [address] Dr. Dwight Waters CULTURE URINEon 06-18-2022 CULTURE URINE Culture Observations : NO GROWTH. Normal [facility] Comment on above: Performed By: #### U RTPCR #### [facility] [address] [place] [address] Dr. Dwight Waters [facility] SARS-CoV-2 (COVID-19) RNA ESTELITA+probe Ql (Unsp spec) Not detected Normal NOT DETECTED [facility] Comment on above: Result Comment: When [...] for this test is supported by the [employer] of Health and Human Service's declaration that [...] By: #### C BC #### [facility] [address] [place] [address] Dr. Dwight Waters ER URINE PROFILEon 2 Bilirubin Ql (U) Negative Normal NEGATIVE [facility] Comment on above: Performed By: #### U RTPCR #### [facility] [address] [place] [address] Dr. Dwight Waters Clarity (U) CLEAR Normal CLEAR [facility] Comment on above: Performed By: #### U RTPCR #### [facility] [address] [place] [address] Dr. Dwight Waters Color (U) YELLOW Normal YELLOW [facility] Comment on above: Performed By: #### U RTPCR #### [facility] [address] [place] [address] Dr. Dwight SHARMA A micrscopic examination will be performed if indicated. Normal [facility] Comment on above: Performed By: #### U RTPCR #### [facility] [address] [place] [address] Dr. Dwight Waters Glucose Ql (U) Negative Normal NEGATIVE [facility] Comment on above: Performed By: #### U RTPCR #### [facility] [address] [place] [address] Dr. Dwight Waters Hemoglobin Ql (U) LARGE Abnormal NEGATIVE [facility] Comment on above: Performed By: #### U RTPCR #### [facility] [address] [place] [address] Dr. Dwight Waters Ketones Ql (U) Negative Normal NEGATIVE [facility] Comment on above: Performed By: #### U RTPCR #### [facility] [address] [place] [address] Dr. Dwight Waters LEUKOCYTES TRACE Abnormal NEGATIVE [facility] Comment on above: Performed By: #### U RTPCR #### [facility] [address] [place] [address] Dr. Dwight Waters Nitrite Ql (U) Negative Normal NEGATIVE [facility] Comment on above: Performed By: #### U RTPCR #### [facility] [address] [place] [address] Dr. Dwight Waters pH (U) 6.0 [pH] Normal 5-9 [facility] Comment on above: Performed By: #### U RTPCR #### [facility] [address] [place] [address] Dr. Dwight Waters Protein (U) [Mass/Vol] 30 mg/dL Abnormal NEGAT MAYUR/ TRACE [facility] Comment on above: Performed By: #### U RTPCR #### [facility] [address] [address] [address] Dwight Waters SPEC GRAVITY >=1.030 Abnormal 1.005-<=1.025 [facility] Comment on above: Performed By: #### U RTPCR #### [facility] [address] [place] [address] Dr. Dwight Waters UR MICRO IND INDICATED Normal [facility] Comment on above: Performed By: #### U RTPCR #### [facility] [address] [address] [address] Dwight Waters Urobilinogen Qn (U) 0.2 {Alyssa'U}/dL Normal 0.2 - 1. 0 [facility] Comment on above: Performed By: #### U RTPCR #### [facility] [address] [place] [address] Dr. Dwight Waters PROF 14(COMP METB)on 022 Albumin [Mass/Vol] 3.7 g/dL Normal 3.4-5.0 [facility] Comment on above: Performed By: #### C MP #### [facility] [address] [place] [address] Dr. Dwight Waters Albumin/Globulin [Mass ratio] 0.9 {ratio} Normal [facility] Comment on above: Performed By: #### C MP #### [facility] [address] [place] [address] Dr. Dwight Waters ALP [Catalytic activity/Vol] 80 U/L Normal 46-116 [facility] Comment on above: Performed By: #### C MP #### [facility] [address] [place] [address] Dr. Dwight Waters ALT [Catalytic activity/Vol] 24 U/L Normal 16-63 [facility] Comment on above: Performed By: #### C MP #### [facility] [address] [place] [address] Dr. Dwight Waters Anion gap [Moles/Vol] 12.9 mmol/L Normal [facility] Comment on above: Performed By: #### C MP #### [facility] [address] [address] [address] Dwight Waters AST [Catalytic activity/Vol] 17 U/L Normal 15-37 [facility] Comment on above: Performed By: #### C MP #### [facility] [address] [place] [address] Dr. Dwight Waters Bilirubin [Mass/Vol] 0.8 mg/dL Normal 0.2-1.0 [facility] Comment on above: Performed By: #### C MP #### [facility] [address] [place] [address] Dr. Dwight Waters Calcium [Mass/Vol] 9.4 mg/dL Normal 8.5-10.1 [facility] Comment on above: Performed By: #### C MP #### [facility] [address] [place] [address] Dr. Dwight Waters Chloride [Moles/Vol] 106 mmol/L Normal 98-107 [facility] Comment on above: Performed By: #### C MP #### [facility] [address] [place] [address] Dr. Dwight Waters CO2 [Moles/Vol] 25.3 mmol/L Normal 21.0-32.0 [facility] Comment on above: Performed By: #### C MP #### [facility] [address] [place] [address] Dr. Dwight Waters Creatinine [Mass/Vol] 1.29 mg/dL Normal 0.70-1.30 [facility] Comment on above: Performed By: #### C MP #### [facility] [address] [place] [address] Dr. Dwight aWters EGFR-AF [facility] >60 Normal >=60 [facility] Comment on above: Performed By: #### C MP #### [facility] [address] [place] [address] Dr. Dwight Waters EGFR-NON AF [facility] 59 mL/min/1.73m2 Critically low >=60 [facility] Comment on above: Performed By: #### C MP #### [facility] [address] [place] [address] Dr. Dwight Waters Globulin (S) [Mass/Vol] 4.2 g/dL Normal [facility] Comment on above: Performed By: #### C MP #### [facility] [address] [place] [address] Dr. Dwight Waters Glucose [Mass/Vol] 106 mg/dL Normal 74-106 [facility] Comment on above: Performed By: #### C MP #### [facility] [address] [place] [address] Dr. Dwight Waters Potassium [Moles/Vol] 4.2 mmol/L Normal 3.5-5.1 [facility] Comment on above: Performed By: #### C MP #### [facility] [address] [place] [address] Dr. Dwight Waters Protein [Mass/Vol] 7.9 g/dL Normal 6.4-8.2 [facility] Comment on above: Performed By: #### C MP #### [facility] [address] [place] [address] Dr. Dwgiht Waters Sodium [Moles/Vol] 140 mmol/L Normal 136-145 [facility] Comment on above: Performed By: #### C MP #### [facility] [address] [place] [address] Dr. Dwight Waters Urea nitrogen [Mass/Vol] 22.0 mg/dL Critically high 7.0-18.0 [facility] Comment on above: Performed By: #### C MP #### [facility] [address] [place] [address] Dr. Dwight Waters Urea nitrogen/Creatinine [Mass ratio] 17.1 mg/mg Normal [facility] Comment on above: Performed By: #### C MP #### [facility] [address] [place] [address] Dr. Dwight Waters URINE MICROSCOPIC ONLYon BACTERIA TRACE Abnormal NONE SEEN [facility] Comment on above: Performed By: #### U RTPCR #### [facility] [address] [place] [address] Dr. Dwight Waters Bacteria identified Cx Nom (U) INDICATED Normal [facility] Comment on above: Performed By: #### U RTPCR #### [facility] [address] [place] [address] Dr. Dwight Waters CAST NONE SEEN Normal NONE SEEN [facility] Comment on above: Performed By: #### U RTPCR #### [facility] [address] [place] [address] Dr. Dwight Waters Crystals LM Nom (Urine sed) NONE SEEN Normal NONE SEEN [facility] Comment on above: Performed By: #### U RTPCR #### [facility] [address] [place] [address] Dr. Dwight Waters Epithelial cells LM Ql (Urine sed) NONE SEEN Normal NONE SEEN /RARE [facility] Comment on above: Performed By: #### U RTPCR #### [facility] [address] [place] [address] Dr. Dwight Waters MUCOUS NONE SEEN Normal NONE SEEN [facility] Comment on above: Performed By: #### U RTPCR #### [facility] [address] [place] [address] Dr. Dwight Waters RBC 5-10 Abnormal 0-2 [facility] Comment on above: Performed By: #### U RTPCR #### [facility] [address] [place] [address] Dr. Dwight Waters WBC 10-20 Abnormal NONE SEEN [facility] Comment on above: Performed By: #### U RTPCR #### [facility] [address] [place] [address] Dr. Dwight Waters ALLOSCREEN RECIPIENT (POST T X PRA)on 06-13-2022 AB SPECIFICITY CLASS COMMENT Antibody Specificity testing performed by [employer]. cPRA calculation based on identification of HLA antibody specificities at MFI >2000 and/or presence of CREG antibodies. [facility] Comment on above: Some of the reagents used for testing in the Clinical [facility]ibility Laboratory have yet to be approved by the FDA. Our certification by CLIA to perform high complexity tests allows us to use these reagents in the context of a stringent QC program, and obviates the need for FDA approval.Testing performed by the [facility]. [facility] number: [id number]. CLIA number: [id number], Director: Carlito Merchant, PhD, D([facility]). ANTIBODY SPECIFICITY INTERPRETATION Detected [facility] CLASS I SPECIFICITIES Not detected [facility] CLASS II SPECIFICITIES Not detected [facility] HLA Ab (S) 0 % 0 [facility] EXTRA MICROon 06-13-2022 [facility] URINE CULTUREOrdered By: Jah Upton on 06-13-2022 Bacteria identified Cx Nom (Unsp spec) Growth [facility] Bacteria identified Cx Nom (Unsp spec) 10,000-50,000 CFU/mL Mixed skin shimon [facility] Comment on above: Multiple bacterial m orphotypes present. Suggest appropriate recollection if clinically indicated. [facility] CBC,PLATELETSon 06-12-2022 Erythrocyte distribution width (RBC) [Ratio] 13.0 % 10.9 - 14.3 % [facility] Hematocrit (Bld) [Volume fraction] 43.2 % 39.6 - 48.8 % [facility] Hemoglobin (Bld) [Mass/Vol] 13.9 g/dL 13.4 - 16.8 g/dL [facility] Interpretation and review of laboratory results Normal [facility] MCH (RBC) [Entitic mass] 28.7 pg 26.1 - 33.3 pg [facility] MCHC (RBC) [Mass/Vol] 32.2 g/dL 31.9 - 36.5 g/dL [facility] MCV (RBC) [Entitic vol] 89.1 fL 79.0 - 94.5 fL [facility] Platelet mean volume (Bld) [Entitic vol] 10.5 fL 8.7 - 12.3 fL [facility] Platelets (Bld) [#/Vol] 269 10*3/uL 146 - 337 K/uL [facility] RBC (Bld) [#/Vol] 4.85 10*6/uL [facility] WBC (Bld) [#/Vol] 7.68 10*3/uL 3.73 - 10. 10 K/uL [facility] CHEM 7 (LYTES,BUN,CREA,GLUC) on 06-12-2022 Anion gap [Moles/Vol] 14 mmol/L 7 - 17 mmol/L [facility] Chloride [Moles/Vol] 106 mmol/L 98 - 10 8 mmol/L [facility] CO2 [Moles/Vol] 25 mmol/L 21 - 31 mmol/L [facility] Creatinine [Mass/Vol] 1.26 mg/dL 0.70 - 1.30 mg/dL [facility] GFR/1.73 sq M.predicted CKD-EPI (S/P/Bld) [Vol rate/Area] 69 >=60 mL/min/1.73m2 [facility] Comment on above: Reported eGFR is bas ed on the CKD-EPI 2020 equation using creatinine, age, and sex. Glucose [Mass/Vol] 83 mg/dL 70 - 99 mg/dL [facility] Osmolality Calc [Osmolality] 295 [facility] Potassium [Moles/Vol] 3.8 mmol/L 3.5 - 5.0 mmol/L [facility] Sodium [Moles/Vol] 141 mmol/L 135 - 145 mmol/L [facility] Urea nitrogen [Mass/Vol] 18 mg/dL 7 - 25 mg/dL [facility] Urea nitrogen/Creatinine [Mass ratio] 14 mg/mg [facility] GGTon 06-12-2022 Gamma glutamyl transferase [Catalytic activity/Vol] 20 U/L 8 - 64 U/L [facility] HEMOGLOBIN [id number] By: Link [employer] on 06-12-2022 Average glucose Estimated from glycated hemoglobin (Bld) [Mass/Vol] 126 mg/dL [facility] HbA1c (Bld) [Mass fraction] 6.0 % High 4.7 - 5.6 % [facility] Interpretation and review of laboratory results Abnormal [facility] HEPATIC FUNCTION PANELon Albumin [Mass/Vol] 4.3 g/dL 3.5 - 5.0 g/dL [facility] ALP [Catalytic activity/Vol] 78 U/L 32 - 126 U/L [facility] ALT [Catalytic activity/Vol] 12 U/L 10 - 52 U/L [facility] AST [Catalytic activity/Vol] 16 U/L 10 - 39 U/L [facility] Bilirubin [Mass/Vol] 1.0 mg/dL <1.5 [facility] Bilirubin.direct [Mass/Vol] 0.2 mg/dL <0.3 [facility] Protein [Mass/Vol] 7.5 g/dL 6.4 - 8.3 g/dL [facility] No Panel Informationon 06-12 Interpretation and review of laboratory results Normal [facility] PTH INTACTOrdered By: Marli Lizarraga on 06-12-2022 Interpretation and review of laboratory results Abnormal [facility] Parathyrin.intact [Mass/Vol] 79.7 pg/mL High 14.0 - 72.0 pg/mL [facility] URINALYSIS REFLEX TO CULTURE PERFORMABLEon 06-12-2022 Appearance (U) Clear Clear [facility] Bacteria LM Ql (Urine sed) ABSENT ABSENT [facility] Color (U) Yellow Yellow [facility] Epithelial cells.squamous LM Ql (Urine sed) 1/hpf = 1+ 1/hpf = 1+, 2-5/hpf = 2+, 0/hpf = 0+, ABSENT [facility] Glucose Test strip (U) [Mass/Vol] Negative Negative [facility] Interpretation and review of laboratory results Abnormal [facility] Ketones (U) [Mass/Vol] Trace Abnormal Negative [facility] Leukocyte esterase Test strip Ql (U) Small Abnormal Negative [facility] Nitrite Ql (U) Negative [facility] pH (U) 5.5 [pH] 5.0 - 7.0 [facility] Protein (U) [Mass/Vol] 30 mg/dL Abnormal Negative [facility] RBC (U) [#/Vol] Trace Abnormal Negative [facility] RBC LM.HPF (Urine sed) [#/Area] 0-2 0 - 2 /HPF [facility] Specific gravity (U) [Rel density] 1.026 [facility] Urobilinogen (U) [Mass/Vol] 0.2 E.U./dL 0.2 E.U/dL, 1.0 E.U/dL [facility] WBC LM.HPF (Urine sed) [#/Area] 10-20 Abnormal 0 - 5 /HPF [facility] URINE PROTEIN/CREA RATIO, RA NDOMon 06-12-2022 Creatinine (24H U) [Mass/Vol] 231.68 mg/dL [facility] Protein Unsp time (U) [Mass/Vol] 49 mg/dL [facility] Protein/Creatinine (U) [Mass ratio] 0.211 [facility] ([facility]IMUS) WHOLE BLO ODon 06-09-2022 Tacrolimus (FK506), Blood 9.8 ng/mL Normal 2.0-20.0 [facility] Comment on above: Result Comment: Trou gh (immediately following transplant) 15.0 . Trough (steady state, 2 weeks or more after transplant): 3.0 - 8.0 . Performed by LC-MS/MS technology. Performed By: #### U RTPCR #### [facility] [address] [place] [address] Dr. Dwight Waters ALBUMINon 06-06-2022 Albumin [Mass/Vol] 3.8 g/dL Normal 3.4-5.0 [facility] Comment on above: Performed By: #### C MP #### [facility] [address] [place] [address] Dr. Dwight Waters ALKALINE PHOSPHAon ALP [Catalytic activity/Vol] 82 U/L Normal 46-116 [facility] Comment on above: Performed By: #### C MP #### [facility] [address] [place] [address] Dr. Dwight Waters BILIRUBIN CONJUGATED (DIRECT )on 06-06-2022 BILI, CONJUGATED 0.2 mg/dL Normal 0.0-0.2 [facility] Comment on above: Performed By: #### C BC #### [facility] [address] [place] [address] Dr. Dwight Waters BILIRUBIN TOTALon 06-06-2022 Bilirubin [Mass/Vol] 1.0 mg/dL Normal 0.2-1.0 [facility] Comment on above: Performed By: #### C BC #### [facility] [address] [place] [address] Dr. Dwight Waters BUNon 06-06-2022 Urea nitrogen [Mass/Vol] 18.0 mg/dL Normal 7.0-18.0 [facility] Comment on above: Performed By: #### C BC #### [facility] [address] [place] [address] Dr. Dwight Watesr CALCIUMon 06-06-2022 Calcium [Mass/Vol] 9.4 mg/dL Normal 8.5-10.1 [facility] Comment on above: Performed By: #### C MP #### [facility] [address] [place] [address] Dr. Dwight Waters CBC AUTO DIFFon 06-06-2022 BASO # 0.1 103/ul Normal 0.0-0.1 [facility] Comment on above: Performed By: #### U RTPCR #### [facility] [address] [place] [address] Dr. Dwight Waters Basophils/100 WBC (Bld) 0.8 % Normal 0.2-2.0 [facility] Comment on above: Performed By: #### U RTPCR #### [facility] [address] [place] [address] Dr. Dwight Waters EO # 0.3 103/ul Normal 0.0-0.7 [facility] Comment on above: Performed By: #### U RTPCR #### [facility] [address] [place] [address] Dr. Dwight Waters Eosinophils/100 WBC (Bld) 3.3 % Normal 0.9-7.0 [facility] Comment on above: Performed By: #### U RTPCR #### [facility] [address] [place] [address] Dr. Dwight Waters Erythrocyte distribution width (RBC) [Ratio] 12.4 % Normal 11.0-15.0 [facility] Comment on above: Performed By: #### U RTPCR #### [facility] [address] [place] [address] Dr. Dwight Waters Hematocrit (Bld) [Volume fraction] 45.1 % Normal 42.0-54.0 [facility] Comment on above: Performed By: #### U RTPCR #### [facility] [address] [place] [address] Dr. Dwight Waters Hemoglobin (Bld) [Mass/Vol] 14.4 g/dL Normal 14.0-18.0 [facility] Comment on above: Performed By: #### U RTPCR #### [facility] [address] [place] [address] Dr. Dwight Waters IG # 0.01 10e3/ul Normal 0.00-0.03 [facility] Comment on above: Performed By: #### U RTPCR #### [facility] [address] [place] [address] Dr. Dwight Waters IG % 0.1 % Normal 0.0-0.5 [facility] Comment on above: Performed By: #### U RTPCR #### [facility] [address] [place] [address] Dr. Dwight Waters LYMPH # 2.2 103/ul Normal 1.2-3.8 [facility] Comment on above: Performed By: #### U RTPCR #### [facility] [address] [place] [address] Dr. Dwight Waters Lymphocytes/100 WBC (Bld) 30.0 % Normal 20.5-60.0 [facility] Comment on above: Performed By: #### U RTPCR #### [facility] [address] [place] [address] Dr. Dwight Waters MANUAL DIFF REQ NO Normal [facility] Comment on above: Performed By: #### U RTPCR #### [facility] [address] [place] [address] Dr. Dwight Waters MCH (RBC) [Entitic mass] 28.2 pg Normal 25.9-34.0 [facility] Comment on above: Performed By: #### U RTPCR #### [facility] [address] [place] [address] Dr. Dwight Waters MCHC (RBC) [Mass/Vol] 31.9 g/dL Normal 29.9-35.2 [facility] Comment on above: Performed By: #### U RTPCR #### [facility] [address] [place] [address] Dr. Dwight Waters MCV (RBC) [Entitic vol] 88.3 fL Normal 80.0-94.0 [facility] Comment on above: Performed By: #### U RTPCR #### [facility] [address] [place] [address] Dr. Dwight Waters MONO # 0.6 103/ul Normal 0.3-0.8 [facility] Comment on above: Performed By: #### U RTPCR #### [facility] [address] [place] [address] Dr. Dwight Waters Monocytes/100 WBC (Bld) 8.2 % Normal 1.7-12.0 [facility] Comment on above: Performed By: #### U RTPCR #### [facility] [address] [place] [address] Dr. Dwight Waters NEUT # 4.3 103/ul Normal 1.4-6.5 [facility] Comment on above: Performed By: #### U RTPCR #### [facility] [address] [place] [address] Dr. Dwight Waters Neutrophils/100 WBC (Bld) 57.6 % Normal 43.0-75.0 [facility] Comment on above: Performed By: #### U RTPCR #### [facility] [address] [place] [address] Dr. Dwight Waters Platelet mean volume (Bld) [Entitic vol] 9.7 fL Normal 9.5-13.5 [facility] Comment on above: Performed By: #### U RTPCR #### [facility] [address] [place] [address] Dr. Dwight Waters PLT 297 103/ul Normal 150-450 [facility] Comment on above: Performed By: #### U RTPCR #### [facility] [address] [place] [address] Dr. Dwight Waters RBC 5.11 106/ul Normal 4.70-6.10 [facility] Comment on above: Performed By: #### U RTPCR #### [facility] [address] [place] [address] Dr. Dwight Waters WBC 7.5 103/ul Normal 4.0-11.0 [facility] Comment on above: Performed By: #### U RTPCR #### [facility] [address] [place] [address] Dr. Dwight Waters CHLORIDEon 06-06-2022 Chloride [Moles/Vol] 107 mmol/L Normal 98-107 [facility] Comment on above: Performed By: #### C BC #### [facility] [address] [place] [address] Dr. Dwight Waters CO2on 06-06-2022 CO2 [Moles/Vol] 27.4 mmol/L Normal 21.0-32.0 [facility] Comment on above: Performed By: #### C BC #### [facility] [address] [place] [address] Dr. Dwight Waters CREATININEon 06-06-2022 Creatinine [Mass/Vol] 1.20 mg/dL Normal 0.70-1.30 [facility] Comment on above: Performed By: #### C BC #### [facility] [address] [place] [address] Dr. Dwight Waters EGFR-AF [facility] >60 Normal >=60 [facility] Comment on above: Performed By: #### C BC #### [facility] [address] [place] [address] Dr. Dwight Waters EGFR-NON AF [facility] >60 Normal >=60 [facility] Comment on above: Performed By: #### C BC #### [facility] [address] [place] [address] Dr. Dwight Waters GGTon 06-06-2022 Gamma glutamyl transferase [Catalytic activity/Vol] 29 U/L Normal 15-85 [facility] Comment on above: Performed By: #### C BC #### [facility] [address] [place] [address] Dr. Dwight Waters GLUCOSE BLOODon 06-06-2022 Glucose [Mass/Vol] 112 mg/dL Critically high 74-106 [facility] Comment on above: Performed By: #### C BC #### [facility] [address] [place] [address] Dr. Dwight Waters MAGNESIUMon 06-06-2022 Magnesium [Mass/Vol] 1.3 mg/dL Critically low 1.8-2.4 [facility] Comment on above: Performed By: #### C MP #### [facility] [address] [place] [address] Dr. Dwight Waters NAon 06-06-2022 Sodium [Moles/Vol] 141 mmol/L Normal 136-145 [facility] Comment on above: Performed By: #### C MP #### [facility] [address] [place] [address] Dr. Dwight Waters PHOSPHORUSon 06-06-2022 Phosphate [Mass/Vol] 3.1 mg/dL Normal 2.6-4.7 [facility] Comment on above: Performed By: #### C MP #### [facility] [address] [place] [address] Dr. Dwight Waters POTASSIUMon 06-06-2022 Potassium [Moles/Vol] 4.3 mmol/L Normal 3.5-5.1 [facility] Comment on above: Performed By: #### C BC #### [facility] [address] [place] [address] Dr. Dwight Waters SGOTon 06-06-2022 AST [Catalytic activity/Vol] 16 U/L Normal 15-37 [facility] Comment on above: Performed By: #### C BC #### [facility] [address] [place], [place] [address] Dr. Dwight Waters SGPTon 06-06-2022 ALT [Catalytic activity/Vol] 50 U/L Normal 16-63 [facility] Comment on above: Performed By: #### C BC #### [facility] [address] [place] [address] [address] Dwight Waters Bacteria identified Cx Nom ( Bld)on 05-21-2022 Bacteria identified Cx Nom (Unsp spec) NO GROWTH DAY 5 OF 5 [facility] Results may be compromised due to volume of BACT\ALERT bottle exceeding 10mLs . The optimal blood volume is 8-10 mls per aerobic/anaerobic blood culture bottle. [facility] CALCIUMon 05-20-2022 Calcium [Mass/Vol] 9.1 mg/dL 8.6 - 10. 5 mg/dL [facility] CBC,PLATELETSon 05-20-2022 Erythrocyte distribution width (RBC) [Ratio] 12.5 % 10.9 - 14.3 % [facility] Hematocrit (Bld) [Volume fraction] 37.1 % Low 39.6 - 48.8 % [facility] Hemoglobin (Bld) [Mass/Vol] 12.3 g/dL Low 13.4 - 16.8 g/dL [facility] Interpretation and review of laboratory results Abnormal [facility] MCH (RBC) [Entitic mass] 28.9 pg 26.1 - 33.3 pg [facility] MCHC (RBC) [Mass/Vol] 33.2 g/dL 31.9 - 36.5 g/dL [facility] MCV (RBC) [Entitic vol] 87.3 fL 79.0 - 94.5 fL [facility] Platelet mean volume (Bld) [Entitic vol] 9.9 fL 8.7 - 12.3 fL [facility] Platelets (Bld) [#/Vol] 234 10*3/uL 146 - 337 K/uL [facility] RBC (Bld) [#/Vol] 4.25 10*6/uL Low [facility] WBC (Bld) [#/Vol] 6.31 10*3/uL 3.73 - 10. 10 K/uL [facility] CHEM 7 (LYTES,BUN,CREA,GLUC) on 05-20-2022 Anion gap [Moles/Vol] 15 mmol/L 7 - 17 mmol/L [facility] Chloride [Moles/Vol] 111 mmol/L High 98 - 10 8 mmol/L [facility] CO2 [Moles/Vol] 22 mmol/L 21 - 31 mmol/L [facility] Creatinine [Mass/Vol] 1.10 mg/dL 0.70 - 1.30 mg/dL [facility] GFR/1.73 sq M.predicted CKD-EPI (S/P/Bld) [Vol rate/Area] 81 >=60 mL/min/1.73m2 [facility] Comment on above: Reported eGFR is bas ed on the CKD-EPI 2020 equation using creatinine, age, and sex. Glucose [Mass/Vol] 92 mg/dL 70 - 99 mg/dL [facility] Interpretation and review of laboratory results Abnormal [facility] Osmolality Calc [Osmolality] 302 [facility] Potassium [Moles/Vol] 4.4 mmol/L 3.5 - 5.0 mmol/L [facility] Sodium [Moles/Vol] 144 mmol/L 135 - 145 mmol/L [facility] Urea nitrogen [Mass/Vol] 18 mg/dL 7 - 25 mg/dL [facility] Urea nitrogen/Creatinine [Mass ratio] 16 mg/mg [facility] MAGNESIUMon 05-20-2022 Interpretation and review of laboratory results Abnormal [facility] Magnesium [Mass/Vol] 1.5 mg/dL Low 1.6 - 2 .6 mg/dL [facility] No Panel Informationon 05-20 Interpretation and review of laboratory results Normal [facility] PHOSPHATE, INORGANICon 05-20 Phosphate [Mass/Vol] 3.3 mg/dL 2.2 - 4 .6 mg/dL [facility] RF Unspecified body region V iews [...] projections of kidneys, ureters, and bladder. FINDINGS: Silk Screen Operator images: Silk Screen Operator radiographs of the abdomen reveal a [...] Contrast refluxes up the ureter to the chilkoot right kidney that is grossly normal appearing. [...] projections of kidneys, ureters, and bladder. FINDINGS: Silk Screen Operator images: Silk Screen Operator radiographs of the abdomen reveal a [...] Contrast refluxes up the ureter to the chilkoot right kidney that is grossly normal appearing. [...] I have reviewed and approved this report. [facility] Radiology Study observation (narrative) [facility] RF Unspecified body region V iews during surgeryOrdered By: Lizz Campos on 05-20-2022 [facility] Work Phone: CALCIUMon 05-19-2022 Calcium [Mass/Vol] 9.2 mg/dL 8.6 - 10. 5 mg/dL [facility] Calcium [Mass/Vol] 8.6 mg/dL 8.6 - 10. 5 mg/dL [facility] CBC,PLATELETSon 05-19-2022 Erythrocyte distribution width (RBC) [Ratio] 12.4 % 10.9 - 14.3 % [facility] Hematocrit (Bld) [Volume fraction] 38.0 % Low 39.6 - 48.8 % [facility] Hemoglobin (Bld) [Mass/Vol] 12.0 g/dL Low 13.4 - 16.8 g/dL [facility] Interpretation and review of laboratory results Abnormal [facility] MCH (RBC) [Entitic mass] 28.6 pg 26.1 - 33.3 pg [facility] MCHC (RBC) [Mass/Vol] 31.6 g/dL Low 31.9 - 36.5 g/dL [facility] MCV (RBC) [Entitic vol] 90.5 fL 79.0 - 94.5 fL [facility] Platelet mean volume (Bld) [Entitic vol] 9.7 fL 8.7 - 12.3 fL [facility] Platelets (Bld) [#/Vol] 199 10*3/uL 146 - 337 K/uL [facility] RBC (Bld) [#/Vol] 4.20 10*6/uL Low [facility] WBC (Bld) [#/Vol] 6.81 10*3/uL 3.73 - 10. 10 K/uL [facility] CHEM 7 (LYTES,BUN,CREA,GLUC) on 05-19-2022 Anion gap [Moles/Vol] 13 mmol/L 7 - 17 mmol/L [facility] Chloride [Moles/Vol] 105 mmol/L 98 - 10 8 mmol/L [facility] CO2 [Moles/Vol] 30 mmol/L 21 - 31 mmol/L [facility] Creatinine [Mass/Vol] 1.39 mg/dL High 0.70 - 1.30 mg/dL [facility] GFR/1.73 sq M.predicted CKD-EPI (S/P/Bld) [Vol rate/Area] 61 >=60 mL/min/1.73m2 [facility] Comment on above: Reported eGFR is bas ed on the CKD-EPI 2020 equation using creatinine, age, and sex. Glucose [Mass/Vol] 121 mg/dL High 70 - 99 mg/dL [facility] Interpretation and review of laboratory results Abnormal [facility] Osmolality Calc [Osmolality] 303 [facility] Potassium [Moles/Vol] 3.8 mmol/L 3.5 - 5.0 mmol/L [facility] Sodium [Moles/Vol] 144 mmol/L 135 - 145 mmol/L [facility] Urea nitrogen [Mass/Vol] 18 mg/dL 7 - 25 mg/dL [facility] Urea nitrogen/Creatinine [Mass ratio] 13 mg/mg [facility] Anion gap [Moles/Vol] 15 mmol/L 7 - 17 mmol/L [facility] Chloride [Moles/Vol] 106 mmol/L 98 - 10 8 mmol/L [facility] CO2 [Moles/Vol] 24 mmol/L 21 - 31 mmol/L [facility] Creatinine [Mass/Vol] 1.46 mg/dL High 0.70 - 1.30 mg/dL [facility] GFR/1.73 sq M.predicted CKD-EPI (S/P/Bld) [Vol rate/Area] 58 Low >=60 mL/min/1.73m2 [facility] Comment on above: Reported eGFR is bas ed on the CKD-EPI 2020 equation using creatinine, age, and sex. Glucose [Mass/Vol] 103 mg/dL High 70 - 99 mg/dL [facility] Interpretation and review of laboratory results Abnormal [facility] Osmolality Calc [Osmolality] 298 [facility] Potassium [Moles/Vol] 3.9 mmol/L 3.5 - 5.0 mmol/L [facility] Sodium [Moles/Vol] 141 mmol/L 135 - 145 mmol/L [facility] Urea nitrogen [Mass/Vol] 21 mg/dL 7 - 25 mg/dL [facility] Urea nitrogen/Creatinine [Mass ratio] 14 mg/mg [facility] MAGNESIUMon 05-19-2022 Magnesium [Mass/Vol] 2.0 mg/dL 1.6 - 2 .6 mg/dL [facility] Magnesium [Mass/Vol] 1.7 mg/dL 1.6 - 2 .6 mg/dL [facility] No Panel Informationon 05-19 Interpretation and review of laboratory results Normal [facility] Interpretation and review of laboratory results Normal [facility] PHOSPHATE, INORGANICon 05-19 Phosphate [Mass/Vol] 3.0 mg/dL 2.2 - 4 .6 mg/dL [facility] Phosphate [Mass/Vol] 2.7 mg/dL 2.2 - 4 .6 mg/dL [facility] CALCIUMon 05-18-2022 Calcium [Mass/Vol] 9.1 mg/dL 8.6 - 10. 5 mg/dL [facility] CBC,PLATELETSon 05-18-2022 Erythrocyte distribution width (RBC) [Ratio] 12.5 % 10.9 - 14.3 % [facility] Hematocrit (Bld) [Volume fraction] 37.3 % Low 39.6 - 48.8 % [facility] Hemoglobin (Bld) [Mass/Vol] 11.9 g/dL Low 13.4 - 16.8 g/dL [facility] Interpretation and review of laboratory results Abnormal [facility] MCH (RBC) [Entitic mass] 28.9 pg 26.1 - 33.3 pg [facility] MCHC (RBC) [Mass/Vol] 31.9 g/dL 31.9 - 36.5 g/dL [facility] MCV (RBC) [Entitic vol] 90.5 fL 79.0 - 94.5 fL [facility] Platelet mean volume (Bld) [Entitic vol] 10.1 fL 8.7 - 12.3 fL [facility] Platelets (Bld) [#/Vol] 189 10*3/uL 146 - 337 K/uL [facility] RBC (Bld) [#/Vol] 4.12 10*6/uL Low [facility] WBC (Bld) [#/Vol] 10.19 10*3/uL High 3.73 - 10 .10 K[facility]L [facility] CHEM 7 (LYTES,BUN,CREA,GLUC) on 05-18-2022 Anion gap [Moles/Vol] 13 mmol/L 7 - 17 mmol/L [facility] Chloride [Moles/Vol] 102 mmol/L 98 - 10 8 mmol/L [facility] CO2 [Moles/Vol] 26 mmol/L 21 - 31 mmol/L [facility] Creatinine [Mass/Vol] 1.91 mg/dL High 0.70 - 1.30 mg/dL [facility] GFR/1.73 sq M.predicted CKD-EPI (S/P/Bld) [Vol rate/Area] 42 Low >=60 mL/min/1.73m2 [facility] Comment on above: Reported eGFR is bas ed on the CKD-EPI 2020 equation using creatinine, age, and sex. Glucose [Mass/Vol] 158 mg/dL High 70 - 99 mg/dL [facility] Osmolality Calc [Osmolality] 297 [facility] Potassium [Moles/Vol] 4.0 mmol/L 3.5 - 5.0 mmol/L [facility] Sodium [Moles/Vol] 137 mmol/L 135 - 145 mmol/L [facility] Urea nitrogen [Mass/Vol] 30 mg/dL High 7 - 25 mg/dL [facility] Urea nitrogen/Creatinine [Mass ratio] 16 mg/mg [facility] CHEM 7 (LYTES,BUN,CREA,GLUC) Ordered By: Tamiko Thapa on 05-18-2022 Anion gap [Moles/Vol] 13 mmol/L 7 - 17 mmol/L [facility] Chloride [Moles/Vol] 104 mmol/L 98 - 10 8 mmol/L [facility] CO2 [Moles/Vol] 26 mmol/L 21 - 31 mmol/L [facility] Creatinine [Mass/Vol] 2.96 mg/dL High 0.70 - 1.30 mg/dL [facility] GFR/1.73 sq M.predicted CKD-EPI (S/P/Bld) [Vol rate/Area] 25 Low >=60 mL/min/1.73m2 [facility] Comment on above: Reported eGFR is bas ed on the CKD-EPI 2020 equation using creatinine, age, and sex. Glucose [Mass/Vol] 136 mg/dL High 70 - 99 mg/dL [facility] Interpretation and review of laboratory results Abnormal [facility] Osmolality Calc [Osmolality] 304 [facility] Potassium [Moles/Vol] 4.2 mmol/L 3.5 - 5.0 mmol/L [facility] Sodium [Moles/Vol] 139 mmol/L 135 - 145 mmol/L [facility] Urea nitrogen [Mass/Vol] 41 mg/dL High 7 - 25 mg/dL [facility] Urea nitrogen/Creatinine [Mass ratio] 14 mg/mg [facility] MAGNESIUMon 05-18-2022 Magnesium [Mass/Vol] 2.2 mg/dL 1.6 - 2 .6 mg/dL [facility] Interpretation and review of laboratory results Normal [facility] Magnesium [Mass/Vol] 1.7 mg/dL 1.6 - 2 .6 mg/dL [facility] No Panel Informationon 05-18 Interpretation and review of laboratory results Abnormal [facility] Interpretation and review of laboratory results Normal [facility] PHOSPHATE, INORGANICon 05-18 Phosphate [Mass/Vol] 2.0 mg/dL Low 2.2 - 4 .6 mg/dL [facility] Interpretation and review of laboratory results Normal [facility] Phosphate [Mass/Vol] 2.8 mg/dL 2.2 - 4 .6 mg/dL [facility] PT,INR,PTTon 05-18-2022 aPTT Coag (PPP) [Time] 31.0 s OS [facility] INR Coag (Bld) [Relative time] 1.1 {INR} [facility] Interpretation and review of laboratory results Abnormal [facility] PT Coag (PPP) [Time] 14.4 s High [facility] URINE CULTUREOrdered By: Sylvia Campos on 05-18-2022 Bacteria identified Cx Nom (Unsp spec) No Growth [facility] CBC,PLATELETSon 05-17-2022 Erythrocyte distribution width (RBC) [Ratio] 12.8 % 10.9 - 14.3 % [facility] Hematocrit (Bld) [Volume fraction] 42.8 % 39.6 - 48.8 % [facility] Hemoglobin (Bld) [Mass/Vol] 13.3 g/dL Low 13.4 - 16.8 g/dL [facility] Interpretation and review of laboratory results Abnormal [facility] MCH (RBC) [Entitic mass] 28.9 pg 26.1 - 33.3 pg [facility] MCHC (RBC) [Mass/Vol] 31.1 g/dL Low 31.9 - 36.5 g/dL [facility] MCV (RBC) [Entitic vol] 92.8 fL 79.0 - 94.5 fL [facility] Platelet mean volume (Bld) [Entitic vol] 10.3 fL 8.7 - 12.3 fL [facility] Platelets (Bld) [#/Vol] 188 10*3/uL 146 - 337 K/uL [facility] RBC (Bld) [#/Vol] 4.61 10*6/uL [facility] WBC (Bld) [#/Vol] 16.61 10*3/uL High 3.73 - 10 .10 K/uL [facility] CHEM 7 (LYTES,BUN,CREA,GLUC) Ordered By: Kaylah Mc on 05-17-2022 Anion gap [Moles/Vol] 15 mmol/L 7 - 17 mmol/L [facility] Chloride [Moles/Vol] 103 mmol/L 98 - 10 8 mmol/L [facility] CO2 [Moles/Vol] 23 mmol/L 21 - 31 mmol/L [facility] Creatinine [Mass/Vol] 5.95 mg/dL High 0.70 - 1.30 mg/dL [facility] GFR/1.73 sq M.predicted CKD-EPI (S/P/Bld) [Vol rate/Area] 11 Low >=60 mL/min/1.73m2 [facility] Comment on above: Reported eGFR is bas ed on the CKD-EPI 2020 equation using creatinine, age, and sex. Glucose [Mass/Vol] 165 mg/dL High 70 - 99 mg/dL [facility] Interpretation and review of laboratory results Abnormal [facility] Osmolality Calc [Osmolality] 305 [facility] Potassium [Moles/Vol] 4.6 mmol/L 3.5 - 5.0 mmol/L [facility] Sodium [Moles/Vol] 136 mmol/L 135 - 145 mmol/L [facility] Urea nitrogen [Mass/Vol] 52 mg/dL High 7 - 25 mg/dL [facility] Urea nitrogen/Creatinine [Mass ratio] 9 mg/mg [facility] CHEM 7 (LYTES,BUN,CREA,GLUC) Ordered By: Kehinde Gutierrez on 05-17-2022 Anion gap [Moles/Vol] 24 mmol/L High 7 - 17 mmol/L [facility] Chloride [Moles/Vol] 100 mmol/L 98 - 10 8 mmol/L [facility] CO2 [Moles/Vol] 16 mmol/L Low 21 - 31 mmol/L [facility] Creatinine [Mass/Vol] 8.08 mg/dL High 0.70 - 1.30 mg/dL [facility] GFR/1.73 sq M.predicted CKD-EPI (S/P/Bld) [Vol rate/Area] 7 Low >=60 mL/min/1.73m2 [facility] Comment on above: Reported eGFR is bas ed on the CKD-EPI 2020 equation using creatinine, age, and sex. Glucose [Mass/Vol] 164 mg/dL High 70 - 99 mg/dL [facility] Interpretation and review of laboratory results Abnormal [facility] Osmolality Calc [Osmolality] 305 [facility] Potassium [Moles/Vol] 5.0 mmol/L 3.5 - 5.0 mmol/L [facility] Sodium [Moles/Vol] 135 mmol/L 135 - 145 mmol/L [facility] Urea nitrogen [Mass/Vol] 56 mg/dL High 7 - 25 mg/dL [facility] Urea nitrogen/Creatinine [Mass ratio] 7 mg/mg [facility] LAVENDER TOP TUBEon 05-17-20 22 [facility] MAGNESIUMon 05-17-2022 Interpretation and review of laboratory results Normal [facility] Magnesium [Mass/Vol] 1.8 mg/dL 1.6 - 2 .6 mg/dL [facility] Interpretation and review of laboratory results Normal [facility] Magnesium [Mass/Vol] 1.6 mg/dL 1.6 - 2 .6 mg/dL [facility] No Panel Informationon 05-17 [facility] PHOSPHATE, INORGANICon 05-17 Interpretation and review of laboratory results Abnormal [facility] Phosphate [Mass/Vol] 4.9 mg/dL High 2.2 - 4 .6 mg/dL [facility] PT,INR,PTTon 05-17-2022 aPTT Coag (PPP) [Time] 33.0 s [facility] INR Coag (Bld) [Relative time] 1.3 {INR} High [facility] Interpretation and review of laboratory results Abnormal [facility] PT Coag (PPP) [Time] 15.7 s [...] Stable cardiomegaly. IMPRESSION IMPRESSION: No acute findings. [facility] Radiology Study observation (narrative) [facility] Portable XR Chest ViewsOrder ed By: David Sanz on 05-17-2022 [facility] Work Phone: URINALYSISOrdered By: Michael patel Ma on 05-17-2022 Appearance (U) Cloudy Abnormal Clear [facility] Comment on above: Results may be inacc urate due to color interference. Clinical correlation recommended. Bacteria LM Ql (Urine sed) ABSENT ABSENT [facility] Color (U) Red Abnormal Yellow [facility] Comment on above: Results may be inacc urate due to color interference. Clinical correlation recommended. Epithelial cells.squamous LM Ql (Urine sed) ABSENT 1/hpf = 1+, 2-5/hpf = 2+, 0/hpf = 0+, ABSENT [facility] Glucose Test strip (U) [Mass/Vol] Negative Negative [facility] Comment on above: Results may be inacc urate due to color interference. Clinical correlation recommended. Interpretation and review of laboratory results Abnormal [facility] Ketones (U) [Mass/Vol] Trace Abnormal Negative [facility] Comment on above: Results may be inacc urate due to color interference. Clinical correlation recommended. Leukocyte esterase Test strip Ql (U) Large Abnormal Negative [facility] Comment on above: Results may be inacc urate due to color interference. Clinical correlation recommended. Nitrite Ql (U) Negative Negative [facility] Comment on above: Results may be inacc urate due to color interference. Clinical correlation recommended. pH (U) 5.0 [pH] 5.0 - 7.0 [facility] Comment on above: Results may be inacc urate due to color interference. Clinical correlation recommended. Protein (U) [Mass/Vol] mg/dL Abnormal Negative [facility] Comment on above: Results may be inacc urate due to color interference. Clinical correlation recommended. RBC (U) [#/Vol] Large Abnormal Negative [facility] Comment on above: Results may be inacc urate due to color interference. Clinical correlation recommended. RBC LM.HPF (Urine sed) [#/Area] /[HPF] Abnormal 0 - 2 /HPF [facility] Specific gravity (U) [Rel density] 1.016 [facility] Comment on above: Results may be inacc urate due to color interference. Clinical correlation recommended. Urobilinogen (U) [Mass/Vol] 0.2 E.U./dL 0.2 E.U/dL, 1.0 E.U/dL [facility] Comment on above: Results may be inacc urate due to color interference. Clinical correlation recommended. WBC LM.HPF (Urine sed) [#/Area] /[HPF] Abnormal 0 - 5 /HPF [facility] URINE CULTUREOrdered By: Tyler Tiwari on 05-17-2022 Bacteria identified Cx Nom (Unsp spec) No Growth [facility] CBC,PLATELETSon 05-16-2022 Erythrocyte distribution width (RBC) [Ratio] 12.9 % 10.9 - 14.3 % [facility] Hematocrit (Bld) [Volume fraction] 46.5 % 39.6 - 48.8 % [facility] Hemoglobin (Bld) [Mass/Vol] 14.7 g/dL 13.4 - 16.8 g/dL [facility] Interpretation and review of laboratory results Abnormal [facility] MCH (RBC) [Entitic mass] 28.3 pg 26.1 - 33.3 pg [facility] MCHC (RBC) [Mass/Vol] 31.6 g/dL Low 31.9 - 36.5 g/dL [facility] MCV (RBC) [Entitic vol] 89.6 fL 79.0 - 94.5 fL [facility] Platelet mean volume (Bld) [Entitic vol] 10.3 fL 8.7 - 12.3 fL [facility] Platelets (Bld) [#/Vol] 188 10*3/uL 146 - 337 K/uL [facility] RBC (Bld) [#/Vol] 5.19 10*6/uL [facility] WBC (Bld) [#/Vol] 12.55 10*3/uL High 3.73 - 10 .10 K/uL [facility] CHEM 7 (LYTES,BUN,CREA,GLUC) Ordered By: Alma Pena on 05-16-2022 Anion gap [Moles/Vol] 14 mmol/L 7 - 17 mmol/L [facility] Chloride [Moles/Vol] 103 mmol/L 98 - 10 8 mmol/L [facility] CO2 [Moles/Vol] 22 mmol/L 21 - 31 mmol/L [facility] Creatinine [Mass/Vol] 6.09 mg/dL High 0.70 - 1.30 mg/dL [facility] GFR/1.73 sq M.predicted CKD-EPI (S/P/Bld) [Vol rate/Area] 10 Low >=60 mL/min/1.73m2 [facility] Comment on above: Reported eGFR is bas ed on the CKD-EPI 2020 equation using creatinine, age, and sex. Glucose [Mass/Vol] 134 mg/dL High 70 - 99 mg/dL [facility] Interpretation and review of laboratory results Abnormal [facility] Osmolality Calc [Osmolality] 298 [facility] Potassium [Moles/Vol] 4.9 mmol/L 3.5 - 5.0 mmol/L [facility] Sodium [Moles/Vol] 134 mmol/L Low 135 - 145 mmol/L [facility] Comment on above: Results inconsistent with previous results Urea nitrogen [Mass/Vol] 49 mg/dL High 7 - 25 mg/dL [facility] Urea nitrogen/Creatinine [Mass ratio] 8 mg/mg [facility] CHEM 7 (LYTES,BUN,CREA,GLUC) on 05-16-2022 Anion gap [Moles/Vol] 17 mmol/L 7 - 17 mmol/L [facility] Chloride [Moles/Vol] 106 mmol/L 98 - 10 8 mmol/L [facility] CO2 [Moles/Vol] 22 mmol/L 21 - 31 mmol/L [facility] Creatinine [Mass/Vol] 5.23 mg/dL High 0.70 - 1.30 mg/dL [facility] GFR/1.73 sq M.predicted CKD-EPI (S/P/Bld) [Vol rate/Area] 13 Low >=60 mL/min/1.73m2 [facility] Comment on above: Reported eGFR is bas ed on the CKD-EPI 2020 equation using creatinine, age, and sex. Glucose [Mass/Vol] 116 mg/dL High 70 - 99 mg/dL [facility] Interpretation and review of laboratory results Abnormal [facility] Osmolality Calc [Osmolality] 305 [facility] Potassium [Moles/Vol] 4.6 mmol/L 3.5 - 5.0 mmol/L [facility] Sodium [Moles/Vol] 140 mmol/L 135 - 145 mmol/L [facility] Urea nitrogen [Mass/Vol] 42 mg/dL High 7 - 25 mg/dL [facility] Urea nitrogen/Creatinine [Mass ratio] 8 mg/mg [facility] EXTRA MICROon 05-16-2022 [facility] LT BLUE TOP TUBEon 2 [facility] LYTES (NA, K, CL) - URINE - RANDOMon 05-16-2022 Chloride (24H U) [Moles/Vol] 68 mmol/L [facility] Potassium (24H U) [Moles/Vol] 36.7 mmol/L [facility] Sodium (24H U) [Moles/Vol] 55 mmol/L [facility] The reference range has not been established for random urine specimens. The test result should be integrated into the clinical context for interpretation. [facility] MAGNESIUMon 05-16-2022 Interpretation and review of laboratory results Normal [facility] Magnesium [Mass/Vol] 1.7 mg/dL 1.6 - 2 .6 mg/dL [facility] NOVEL CORONAVIRUS PCROrdered By: Edson Candelario on 05-16-2022 SARS-CoV-2 (COVID-19) RNA ESTELITA+probe Ql (Unsp spec) Not detected NOT DETECTED [facility] Comment on above: [facility] Negative results do [...] use authorization for use by authorized laboratories. [facility] No Panel Informationon 05-16 [facility] OSMOLALITY, URINEon 05-16-20 Interpretation and review of laboratory results Normal [facility] Osmolality (U) [Osmolality] 320 mosm/kg [facility] The reference range has not been established for random urine specimens. The test result should be integrated into the clinical context for interpretation. [facility] PROCALCITONINon 05-16-2022 Interpretation and review of laboratory results Normal [facility] Procalcitonin [Mass/Vol] 0.18 ng/mL <0.50 [facility] Comment on above: Procalcitonin is an [...] and trend procalcitonin in various clinical settings. [email or web address] Two common cutoffs associated with bacterial infections are as follows. Respiratory tract infections: >0.25 ng/mL Sepsis/septic shock: >0.5 ng/mL Procalcitonin should not be used alone as a diagnostic tool, however. All procalcitonin results should be interpreted in association with the patients clinical condition and all laboratory findings. [facility] PT,INR,PTTon 05-16-2022 aPTT Coag (PPP) [Time] 30.3 s OS [facility] INR Coag (Bld) [Relative time] 1.1 {INR} [facility] Interpretation and review of laboratory results Normal [facility] PT Coag (PPP) [Time] 14.1 s [facility] SARS-CoV-2 (COVID-19) RNA NA A+probe Ql (Unsp spec)Ordered By: Edson Candelario on 05-16-2022 Interpretation and review of laboratory results Normal [facility] TACROLIMUS LEVEL, TROUGH (UT E DRUG LEVEL)Ordered By: Mariama Nick on 05-16-2022 Interpretation and review of laboratory results Normal [facility] Tacrolimus (Bld) [Mass/Vol] 4.1 ng/mL Bone Marrow Transplant: 4.0-12.0, Therapeutic: 5.0-15.0 [facility] Method performed is a chemiluminescent microparticle immunoasssay on the [employer] i2000. The range is based on experience at [facility] and users should be aware that target concentrations vary widely depending on concomitant therapy, time post-transplant, and desired degree of immunosuppression. [facility] URINE PROTEIN/CREA RATIO, RA Smiley 05-16-2022 Creatinine (24H U) [Mass/Vol] 59.82 mg/dL [facility] Protein Unsp time (U) [Mass/Vol] 111 mg/dL [facility] Protein/Creatinine (U) [Mass ratio] 1.856 mg/g [facility] US for transplanted kidney l jose guadalupeitedon 05-16-2022 IMPRESSION: 1. Pelvocaliectasis/mild hydronephrosis in the [...] appearing vascular flow in the transplant kidney. [facility] Radiology Study observation (narrative) [facility] US for transplanted kidney l imitedOrdered By: Rosendo Matute on 05-16-2022 [facility] Work Phone: CBC AND ELECTRONIC DIFFon Basophils (Bld) [#/Vol] 10*3/uL 0.00 - 0.09 K/uL [facility] Basophils/100 WBC (Bld) 0.2 % [facility] Differential cell count method Nom (Bld) Electronic Differential [facility] Eosinophils (Bld) [#/Vol] 10*3/uL 0.00 - 0.48 K/uL [facility] Eosinophils/100 WBC (Bld) 0.0 % [facility] Erythrocyte distribution width (RBC) [Ratio] 12.8 % 10.9 - 14.3 % [facility] Hematocrit (Bld) [Volume fraction] 46.0 % 39.6 - 48.8 % [facility] Hemoglobin (Bld) [Mass/Vol] 14.6 g/dL 13.4 - 16.8 g/dL [facility] Immature granulocytes (Bld) [#/Vol] 0.07 10*3/uL <=0.08 [facility] Immature granulocytes/100 WBC (Bld) 0.4 % [facility] Interpretation and review of laboratory results Abnormal [facility] Lymphocytes (Bld) [#/Vol] 1.49 10*3/uL 0.83 - 3.57 K/uL [facility] Lymphocytes/100 WBC (Bld) 9.4 % [facility] MCH (RBC) [Entitic mass] 28.2 pg 26.1 - 33.3 pg [facility] MCHC (RBC) [Mass/Vol] 31.7 g/dL Low 31.9 - 36.5 g/dL [facility] MCV (RBC) [Entitic vol] 89.0 fL 79.0 - 94.5 fL [facility] Monocytes (Bld) [#/Vol] 1.45 10*3/uL High 0.24 - 0.93 K/uL [facility] Monocytes/100 WBC (Bld) 9.2 % [facility] Neutrophils (Bld) [#/Vol] 12.77 10*3/uL High 1.57 - 6.19 K/uL [facility] Nucleated RBC/100 WBC (Bld) [Ratio] 0.0 % <=0.2 /100 WBC [facility] Platelet mean volume (Bld) [Entitic vol] 9.9 fL 8.7 - 12.3 fL [facility] Platelets (Bld) [#/Vol] 250 10*3/uL 146 - 337 K/uL [facility] RBC (Bld) [#/Vol] 5.17 10*6/uL [facility] Segmented neutrophils/100 WBC (Bld) 80.8 % [facility] WBC (Bld) [#/Vol] 15.81 10*3/uL High 3.73 - 10 .10 K/uL [facility] CBC AUTO DIFFon 05-15-2022 BASO # 0.0 103/ul Normal 0.0-0.1 [facility] Comment on above: Performed By: #### C BC #### [facility] [address] [place] [address] Dr. Diwght Waters Basophils/100 WBC (Bld) 0.3 % Normal 0.2-2.0 [facility] Comment on above: Performed By: #### C BC #### [facility] [address] [place] [address] Dr. Dwight Waters EO # 0.1 103/ul Normal 0.0-0.7 [facility] Comment on above: Performed By: #### C BC #### [facility] [address] [place] [address] Dr. Dwihgt Waters Eosinophils/100 WBC (Bld) 0.8 % Critically low 0.9-7.0 [facility] Comment on above: Performed By: #### C BC #### [facility] [address] [place] [address] Dr. Dwight Waters Erythrocyte distribution width (RBC) [Ratio] 12.7 % Normal 11.0-15.0 [facility] Comment on above: Performed By: #### C BC #### [facility] [address] [place] [address] Dr. Dwight Waters Hematocrit (Bld) [Volume fraction] 43.5 % Normal 42.0-54.0 [facility] Comment on above: Performed By: #### C BC #### [facility] [address] [place] [address] Dr. Dwight Waters Hemoglobin (Bld) [Mass/Vol] 14.4 g/dL Normal 14.0-18.0 [facility] Comment on above: Performed By: #### C BC #### [facility] [address] [place] [address] Dr. Dwight Waters IG # 0.02 10e3/ul Normal 0.00-0.03 [facility] Comment on above: Performed By: #### C BC #### [facility] [address] [place] [address] Dr. Dwight Waters IG % 0.2 % Normal 0.0-0.5 [facility] Comment on above: Performed By: #### C BC #### [facility] [address] [place] [address] Dr. Dwight Waters LYMPH # 1.5 103/ul Normal 1.2-3.8 [facility] Comment on above: Performed By: #### C BC #### [facility] [address] [place] [address] Dr. Dwight Waters Lymphocytes/100 WBC (Bld) 12.5 % Critically low 20.5-60.0 [facility] Comment on above: Performed By: #### C BC #### [facility] [address] [place] [address] Dr. Dwight Waters MANUAL DIFF REQ NO Normal [facility] Comment on above: Performed By: #### C BC #### [facility] [address] [place] [address] Dr. Dwight Waters MCH (RBC) [Entitic mass] 28.6 pg Normal 25.9-34.0 [facility] Comment on above: Performed By: #### C BC #### [facility] [address] [place] [address] Dr. Dwight Waters MCHC (RBC) [Mass/Vol] 33.1 g/dL Normal 29.9-35.2 [facility] Comment on above: Performed By: #### C BC #### [facility] [address] [place] [address] Dr. Dwight Waters MCV (RBC) [Entitic vol] 86.3 fL Normal 80.0-94.0 [facility] Comment on above: Performed By: #### C BC #### [facility] [address] [place] [address] Dr. Dwight Waters MONO # 1.0 103/ul Critically high 0.3-0.8 [facility] Comment on above: Performed By: #### C BC #### [facility] [address] [place] [address] Dr. Dwight Waters Monocytes/100 WBC (Bld) 8.2 % Normal 1.7-12.0 [facility] Comment on above: Performed By: #### C BC #### [facility] [address] [place] [address] Dr. Dwight Waters NEUT # 9.1 103/ul Critically high 1.4-6.5 [facility] Comment on above: Performed By: #### C BC #### [facility] [address] [place] [address] Dr. Dwight Waters Neutrophils/100 WBC (Bld) 78.0 % Critically high 43.0-75.0 [facility] Comment on above: Performed By: #### C BC #### [facility] [address] [place] [address] Dr. Dwight Waters Platelet mean volume (Bld) [Entitic vol] 9.8 fL Normal 9.5-13.5 [facility] Comment on above: Performed By: #### C BC #### [facility] [address], [place] [address] Dr. Dwight Waters PLT 251 103/ul Normal 150-450 [facility] Comment on above: Performed By: #### C BC #### [facility] [address], [place] [address] Dr. Dwight Waters RBC 5.04 106/ul Normal 4.70-6.10 [facility] Comment on above: Performed By: #### C BC #### [facility] [address], [place] [address] Dr. Dwight Waters WBC 11.6 103/ul Critically high 4.0-11.0 [facility] Comment on above: Performed By: #### C BC #### [facility] [address], [place] [address] Dr. Dwight Waters CHEM 6 (LYTES, BUN CREA)on 0 05-15-2022 Anion gap [Moles/Vol] 12 mmol/L 7 - 17 mmol/L [facility] Chloride [Moles/Vol] 105 mmol/L 98 - 10 8 mmol/L [facility] CO2 [Moles/Vol] 26 mmol/L 21 - 31 mmol/L [facility] Creatinine [Mass/Vol] 2.85 mg/dL High 0.70 - 1.30 mg/dL [facility] GFR/1.73 sq M.predicted CKD-EPI (S/P/Bld) [Vol rate/Area] 26 Low >=60 mL/min/1.73m2 [facility] Comment on above: Reported eGFR is bas ed on the CKD-EPI 2020 equation using creatinine, age, and sex. Potassium [Moles/Vol] 4.6 mmol/L 3.5 - 5.0 mmol/L [facility] Sodium [Moles/Vol] 138 mmol/L 135 - 145 mmol/L [facility] Urea nitrogen [Mass/Vol] 32 mg/dL High 7 - 25 mg/dL [facility] Urea nitrogen/Creatinine [Mass ratio] 11 mg/mg [facility] CT ABD/PELVIS WO CONon 05-15 CT [...] transplanted kidney with moderate right-sided hydronephrosis. Atrophic [place]ilkoot kidneys with moderate right-sided hydronephrosis. Multiple nonobstructive [...] transplanted kidney with moderate right-sided hydronephrosis. Atrophic [place]oot kidneys with moderate right-sided hydronephrosis. Multiple nonobstructive right renal calculi measuring up to 8 mm. FOLLOW-UP: Follow-up as clinically indicated. Electronically authenticated by: LYNDSAY SAID Date: 2022-05-15 05:04 Normal [facility] Covid-19 PCR (CVDTBH)on 04-30 SARS-CoV-2 (COVID-19) RNA ESTELITA+probe Ql (Unsp spec) Not detected Normal NOT DETECTED [facility] Comment on above: Result Comment: When [...] for this test is supported by the [employer] of Health and Human Service's declaration that [...] By: #### U RTPCR #### [facility] [address] [place] [address] Dr. Dwight Waters GLUCOSEon 05-15-2022 Glucose [Mass/Vol] 141 mg/dL High 70 - 99 mg/dL [facility] GOLD TOP TUBEon 05-15-2022 [facility] HEPATIC FUNCTION PANELon Albumin [Mass/Vol] 4.3 g/dL 3.5 - 5.0 g/dL [facility] ALP [Catalytic activity/Vol] 85 U/L 32 - 126 U/L [facility] ALT [Catalytic activity/Vol] 13 U/L 10 - 52 U/L [facility] AST [Catalytic activity/Vol] 15 U/L 10 - 39 U/L [facility] Bilirubin [Mass/Vol] 0.8 mg/dL <1.5 [facility] Bilirubin.direct [Mass/Vol] 0.2 mg/dL <0.3 [facility] Interpretation and review of laboratory results Normal [facility] Protein [Mass/Vol] 7.3 g/dL 6.4 - 8.3 g/dL [facility] LIPASEon 05-15-2022 Lipase [Catalytic activity/Vol] 8 U/L Low 11 - 82 U/L [facility] No Panel Informationon 05-15 Interpretation and review of laboratory results Abnormal [facility] PROF 14(COMP METB)on 022 Albumin [Mass/Vol] 3.8 g/dL Normal 3.4-5.0 [facility] Comment on above: Performed By: #### U RTPCR #### [facility] [address] [place] [address] Dr. Dwight Waters Albumin/Globulin [Mass ratio] 1.1 {ratio} Normal [facility] Comment on above: Performed By: #### U RTPCR #### [facility] [address] [place] [address] [address] Dwight Waters ALP [Catalytic activity/Vol] 92 U/L Normal 46-116 [facility] Comment on above: Performed By: #### U RTPCR #### [facility] [address] [place] [address] Dr. Dwight Waters ALT [Catalytic activity/Vol] 25 U/L Normal 16-63 [facility] Comment on above: Performed By: #### U RTPCR #### [facility] [address] [place] [address] Dr. Dwight Waters Anion gap [Moles/Vol] 14.6 mmol/L Normal [facility] Comment on above: Performed By: #### U RTPCR #### [facility] [address] [place] [address] Dr. Dwight Waters AST [Catalytic activity/Vol] 17 U/L Normal 15-37 [facility] Comment on above: Performed By: #### U RTPCR #### [facility] [address] [place] [address] Dr. Dwight Waters Bilirubin [Mass/Vol] 0.6 mg/dL Normal 0.2-1.0 [facility] Comment on above: Performed By: #### U RTPCR #### [facility] [address] [place] [address] Dr. Dwight Waters Calcium [Mass/Vol] 9.9 mg/dL Normal 8.5-10.1 [facility] Comment on above: Performed By: #### U RTPCR #### [facility] [address] [place] [address] Dr. Dwight Waters Chloride [Moles/Vol] 106 mmol/L Normal 98-107 [facility] Comment on above: Performed By: #### U RTPCR #### [facility] [address] [place] [address] [address] Dwight Waters CO2 [Moles/Vol] 24.2 mmol/L Normal 21.0-32.0 [facility] Comment on above: Performed By: #### U RTPCR #### [facility] [address] [address] [address] Dwight Waters Creatinine [Mass/Vol] 1.58 mg/dL Critically high 0.70-1.30 [facility] Comment on above: Performed By: #### U RTPCR #### [facility] [address] [address] [address] Dwight Waters EGFR-AF [facility] 56 mL/min/1.73m2 Critically low >=60 [facility] Comment on above: Performed By: #### U RTPCR #### [facility] [address] [address] [address] Dwight Waters EGFR-NON AF [facility] 46 mL/min/1.73m2 Critically low >=60 [facility] Comment on above: Performed By: #### U RTPCR #### [facility] [address] [address] [address] Dwight Waters Globulin (S) [Mass/Vol] 3.5 g/dL Normal [facility] Comment on above: Performed By: #### U RTPCR #### [facility] [address] [address] [address] Dwight Waters Glucose [Mass/Vol] 162 mg/dL Critically high 74-106 [facility] Comment on above: Performed By: #### U RTPCR #### [facility] [address] [address] [address] Dwight Waters Potassium [Moles/Vol] 3.8 mmol/L Normal 3.5-5.1 [facility] Comment on above: Performed By: #### U RTPCR #### [facility] [address] [address] [address] Dwight Waters Protein [Mass/Vol] 7.3 g/dL Normal 6.4-8.2 [facility] Comment on above: Performed By: #### U RTPCR #### [facility] [address] [address] [address] Dwight Waters Sodium [Moles/Vol] 141 mmol/L Normal 136-145 [facility] Comment on above: Performed By: #### U RTPCR #### [facility] [address] [address] [address] Dwight Waters Urea nitrogen [Mass/Vol] 22.0 mg/dL Critically high 7.0-18.0 [facility] Comment on above: Performed By: #### U RTPCR #### [facility] [address] [address] [address] Dwight Waters Urea nitrogen/Creatinine [Mass ratio] 13.9 mg/mg Normal [facility] Comment on above: Performed By: #### U RTPCR #### [facility] [address] [address] [address] Dwight Waters Portable XR Chest Viewson [...] chest. IMPRESSION IMPRESSION: No acute cardiopulmonary disease [facility] Radiology Study observation (narrative) [facility] Portable XR Chest ViewsOrder ed By: Vladislav Omer on 05-15-2022 [facility] URINE DIPSTICK; REFLEX MICRO SCOPY; REFLEX CULTURE PERFORMABLEon 05-15-2022 Appearance (U) Clear Clear [facility] Color (U) Yellow Yellow [facility] Glucose Test strip (U) [Mass/Vol] 100 mg/dL Abnormal Negative [facility] Interpretation and review of laboratory results Abnormal [facility] Ketones (U) [Mass/Vol] Negative Negative [facility] Leukocyte esterase Test strip Ql (U) Large Abnormal Negative [facility] Nitrite Ql (U) Negative Negative [facility] pH (U) 6.0 [pH] 5.0 - 7.0 [facility] Protein (U) [Mass/Vol] 100 mg/dL Abnormal Negative [facility] RBC (U) [#/Vol] Large Abnormal Negative [facility] Specific gravity (U) [Rel density] 1.010 [facility] Urobilinogen (U) [Mass/Vol] 0.2 E.U./dL 0.2 E.U/dL, 1.0 E.U/dL [facility] URINE MICROSCOPIC WITH REFLE X TO CULTUREOrdered By: Rey Bro on 05-15-2022 Bacteria LM Ql (Urine sed) ABSENT ABSENT [facility] Epithelial cells.squamous LM Ql (Urine sed) ABSENT 1/hpf = 1+, 2-5/hpf = 2+, 0/hpf = 0+, ABSENT [facility] Interpretation and review of laboratory results Abnormal [facility] RBC LM.HPF (Urine sed) [#/Area] /[HPF] Abnormal 0 - 2 /HPF [facility] WBC LM.HPF (Urine sed) [#/Area] 10-20 [...] 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 The [place] kidneys are progressively atrophic bilaterally compared to [...] of 06/14/2020 are no longer present. The [place] distal right ureter is decompressed beyond this [...] with surgical history for renal graft and chilkoot right urinary drainage, as a discrete ureteroneocystostomy is not identified, and the graft may be draining via a ureteroureterostomy. Urology consultation recommended. 3. The [place]koot kidneys are bilaterally atrophic, with right renal sinus calcifications consistent with nonobstructing right [place]koot renal calculi up to 6 mm. Normal [facility] CBC AUTO DIFFon 05-11-2022 BASO # 0.1 103/ul Normal 0.0-0.1 [facility] Comment on above: Performed By: #### U RTPCR #### [facility] [address] [address] [address] Dwight Waters Basophils/100 WBC (Bld) 0.8 % Normal 0.2-2.0 [facility] Comment on above: Performed By: #### U RTPCR #### [facility] [address] [address] [address] Dwight Waters EO # 0.2 103/ul Normal 0.0-0.7 [facility] Comment on above: Performed By: #### U RTPCR #### [facility] [address] [address] [address] Dwight Waters Eosinophils/100 WBC (Bld) 2.5 % Normal 0.9-7.0 [facility] Comment on above: Performed By: #### U RTPCR #### [facility] [address] [place] [address] Dr. Dwight Waters Erythrocyte distribution width (RBC) [Ratio] 12.5 % Normal 11.0-15.0 [facility] Comment on above: Performed By: #### U RTPCR #### [facility] [address] [address] [address] Dwight Waters Hematocrit (Bld) [Volume fraction] 48.3 % Normal 42.0-54.0 [facility] Comment on above: Performed By: #### U RTPCR #### [facility] [address] [place] [address] Dr. Dwight Waters Hemoglobin (Bld) [Mass/Vol] 15.3 g/dL Normal 14.0-18.0 [facility] Comment on above: Performed By: #### U RTPCR #### [facility] [address] [place] [address] Dr. Dwight Waters IG # 0.01 10e3/ul Normal 0.00-0.03 [facility] Comment on above: Performed By: #### U RTPCR #### [facility] [address] [place] [address] Dr. Dwight Waters IG % 0.2 % Normal 0.0-0.5 [facility] Comment on above: Performed By: #### U RTPCR #### [facility] [address] [place] [address] Dr. Dwight Waters LYMPH # 1.9 103/ul Normal 1.2-3.8 [facility] Comment on above: Performed By: #### U RTPCR #### [facility] [address] [place] [address] Dr. Dwight Waters Lymphocytes/100 WBC (Bld) 29.8 % Normal 20.5-60.0 [facility] Comment on above: Performed By: #### U RTPCR #### [facility] [address] [place] [address] Dr. Dwight Waters MANUAL DIFF REQ NO Normal [facility] Comment on above: Performed By: #### U RTPCR #### [facility] [address] [place] [address] Dr. Dwight Waters MCH (RBC) [Entitic mass] 28.2 pg Normal 25.9-34.0 [facility] Comment on above: Performed By: #### U RTPCR #### [facility] [address] [address] [address] Dwight Waters MCHC (RBC) [Mass/Vol] 31.7 g/dL Normal 29.9-35.2 [facility] Comment on above: Performed By: #### U RTPCR #### [facility] [address] [address] [address] Dwight Waters MCV (RBC) [Entitic vol] 89.1 fL Normal 80.0-94.0 [facility] Comment on above: Performed By: #### U RTPCR #### [facility] [address] [place] [address] Dr. Dwight Waters MONO # 0.6 103/ul Normal 0.3-0.8 [facility] Comment on above: Performed By: #### U RTPCR #### [facility] [address] [place] [address] Dr. Dwight Waters Monocytes/100 WBC (Bld) 9.0 % Normal 1.7-12.0 [facility] Comment on above: Performed By: #### U RTPCR #### [facility] [address] [place] [address] Dr. Dwight Waters NEUT # 3.6 103/ul Normal 1.4-6.5 [facility] Comment on above: Performed By: #### U RTPCR #### [facility] [address] [place] [address] Dr. Dwight Waters Neutrophils/100 WBC (Bld) 57.7 % Normal 43.0-75.0 [facility] Comment on above: Performed By: #### U RTPCR #### [facility] [address] [place] [address] Dr. Dwight Waters Platelet mean volume (Bld) [Entitic vol] 9.9 fL Normal 9.5-13.5 [facility] Comment on above: Performed By: #### U RTPCR #### [facility] [address] [place] [address] Dr. Dwight Waters PLT 249 103/ul Normal 150-450 [facility] Comment on above: Performed By: #### U RTPCR #### [facility] [address] [place] [address] Dr. Dwight Waters RBC 5.42 106/ul Normal 4.70-6.10 [facility] Comment on above: Performed By: #### U RTPCR #### [facility] [address] [place] [address] Dr. Dwight Waters WBC 6.3 103/ul Normal 4.0-11.0 [facility] Comment on above: Performed By: #### U RTPCR #### [facility] [address] [place] [address] Dr. Dwight Waters ER URINE PROFILEon 2 Bilirubin Ql (U) Unable to perform testing due to color interference. Abnormal NEGATIVE [facility] Comment on above: Performed By: #### U RTPCR #### [facility] [address] [place] [address] Dr. Dwight Waters Clarity (U) TURBID Abnormal CLEAR [facility] Comment on above: Performed By: #### U RTPCR #### [facility] [address] [place] [address] Dr. Dwight Waters Color (U) RED Abnormal YELLOW [facility] Comment on above: Performed By: #### U RTPCR #### [facility] [address] [place] [address] Dr. Dwight SHARMA A micrscopic examination will be performed if indicated. Normal [facility] Comment on above: Performed By: #### U RTPCR #### [facility] [address] [place] [address] Dr. Dwight Waters Glucose Ql (U) Unable to perform testing due to color interference. Abnormal NEGATIVE [facility] Comment on above: Performed By: #### U RTPCR #### [facility] [address] [place] [address] Dr. Dwight Waters Hemoglobin Ql (U) Unable to perform testing due to color interference. Abnormal NEGATIVE [facility] Comment on above: Performed By: #### U RTPCR #### [facility] [address] [place] [address] Dr. Dwight Waters Ketones Ql (U) Unable to perform testing due to color interference. Abnormal NEGATIVE [facility] Comment on above: Performed By: #### U RTPCR #### [facility] [address] [place] [address] Dr. Dwight Waters LEUKOCYTES Unable to perform testing due to color interference. Abnormal NEGATIVE [facility] Comment on above: Performed By: #### U RTPCR #### [facility] [address] [place] [address] Dr. Dwight Waters Nitrite Ql (U) Unable to perform testing due to color interference. Abnormal NEGATIVE [facility] Comment on above: Performed By: #### U RTPCR #### [facility] [address] [place] [address] Dr. Dwight Waters pH (U) 6.5 [pH] Normal 5-9 [facility] Comment on above: Performed By: #### U RTPCR #### [facility] [address] [place] [address] Dr. Dwight Waters SPEC GRAVITY 1.020 Normal 1.005-<=1.025 [facility] Comment on above: Performed By: #### U RTPCR #### [facility] [address] [place] [address] Dr. Dwight Waters UA PROTEIN Unable to perform testing due to color interference. Normal NEGATIVE/ TRACE [facility] Comment on above: Performed By: #### U RTPCR #### [facility] [address] [place] [address] Dr. Dwight Waters UR MICRO IND INDICATED Normal [facility] Comment on above: Performed By: #### U RTPCR #### [facility] [address] [place] [address] Dr. Dwight Waters UROBILINOGEN Unable to perform testing due to color interference. Normal 0.2 - 1.0 [facility] Comment on above: Performed By: #### U RTPCR #### [facility] [address] [place] [address] Dr. Dwight Waters PROF 14(COMP METB)on 022 Albumin [Mass/Vol] 3.8 g/dL Normal 3.4-5.0 [facility] Comment on above: Performed By: #### C MP #### [facility] [address] [place] [address] Dr. Dwight Waters Albumin/Globulin [Mass ratio] 1.1 {ratio} Normal [facility] Comment on above: Performed By: #### C MP #### [facility] [address] [address] [address] Dwight Waters ALP [Catalytic activity/Vol] 106 U/L Normal 46-116 [facility] Comment on above: Performed By: #### C MP #### [facility] [address] [address] [address] Dwight Waters ALT [Catalytic activity/Vol] 30 U/L Normal 16-63 [facility] Comment on above: Performed By: #### C MP #### [facility] [address] [place] [address] Dr. Dwight Waters Anion gap [Moles/Vol] 11.7 mmol/L Normal [facility] Comment on above: Performed By: #### C MP #### [facility] [address] [address] [address] Dwight Waters AST [Catalytic activity/Vol] 16 U/L Normal 15-37 [facility] Comment on above: Performed By: #### C MP #### [facility] [address] [place] [address] Dr. Dwight Waters Bilirubin [Mass/Vol] 0.6 mg/dL Normal 0.2-1.0 [facility] Comment on above: Performed By: #### C MP #### [facility] [address] [place] [address] Dr. Dwight Waters Calcium [Mass/Vol] 9.1 mg/dL Normal 8.5-10.1 [facility] Comment on above: Performed By: #### C MP #### [facility] [address] [address] [address] Dwight Waters CO2 [Moles/Vol] 27.4 mmol/L Normal 21.0-32.0 [facility] Comment on above: Performed By: #### C MP #### [facility] [address] [address] [address] Dwight Waters Creatinine [Mass/Vol] 1.18 mg/dL Normal 0.70-1.30 [facility] Comment on above: Performed By: #### C MP #### [facility] [address] [address] [address] Dwight Waters EGFR-AF [facility] >60 Normal >=60 [facility] Comment on above: Performed By: #### C MP #### [facility] [address] [address] [address] Dwight Waters EGFR-NON AF [facility] >60 Normal >=60 [facility] Comment on above: Performed By: #### C MP #### [facility] [address] [place] [address] Dr. Dwight Waters Globulin (S) [Mass/Vol] 3.6 g/dL Normal [facility] Comment on above: Performed By: #### C MP #### [facility] [address] [place] [address] Dr. Dwight Waters Glucose [Mass/Vol] 192 mg/dL Critically high 74-106 [facility] Comment on above: Performed By: #### C MP #### [facility] [address] [place] [address] Dr. Dwight Waters Potassium [Moles/Vol] 4.1 mmol/L Normal 3.5-5.1 [facility] Comment on above: Performed By: #### C MP #### [facility] [address] [place] [address] Dr. Dwight Waters Protein [Mass/Vol] 7.4 g/dL Normal 6.4-8.2 [facility] Comment on above: Performed By: #### C MP #### [facility] [address] [place] [address] Dr. Dwight Waters Sodium [Moles/Vol] 142 mmol/L Normal 136-145 [facility] Comment on above: Performed By: #### C MP #### [facility] [address] [place] [address] Dr. Dwight Waters Urea nitrogen [Mass/Vol] 17.0 mg/dL Normal 7.0-18.0 [facility] Comment on above: Performed By: #### C MP #### [facility] [address] [place] [address] Dr. Dwight Waters Urea nitrogen/Creatinine [Mass ratio] 14.4 mg/mg Normal [facility] Comment on above: Performed By: #### C MP #### [facility] [address] [address] [address] Dwight Waters URINE MICROSCOPIC ONLYon BACTERIA NONE SEEN Normal NONE SEEN [facility] Comment on above: Performed By: #### U RTPCR #### [facility] [address] [place] [address] Dr. Dwight Waters Bacteria identified Cx Nom (U) NOT INDICATED Normal [facility] Comment on above: Performed By: #### U RTPCR #### [facility] [address] [place] [address] Dr. Dwight Waters CAST NONE SEEN Normal NONE SEEN [facility] Comment on above: Performed By: #### U RTPCR #### [facility] [address] [place] [address] Dr. Dwight Waters Crystals LM Nom (Urine sed) NONE SEEN Normal NONE SEEN [facility] Comment on above: Performed By: #### U RTPCR #### [facility] [address] [place] [address] Dr. Dwight Waters Epithelial cells LM Ql (Urine sed) RARE Normal NONE SEEN /RARE [facility] Comment on above: Performed By: #### U RTPCR #### [facility] [address] [place] [address] Dr. Dwight Waters MUCOUS NONE SEEN Normal NONE SEEN [facility] Comment on above: Performed By: #### U RTPCR #### [facility] [address] [place] [address] Dr. Dwight Waters RBC (U) [#/Vol] /uL Abnormal 0-2 [facility] Comment on above: Performed By: #### U RTPCR #### [facility] [address] [address] [address] Dwight Waters WBC NONE SEEN Normal NONE SEEN [facility] Comment on above: Performed By: #### U RTPCR #### [facility] [id number] Dwight Waters K (Potassium)on 01-06-2020 Potassium [Moles/Vol] 4.4 mmol/L Normal 3.7-5.3 [facility] Comment on above: Performed By: #### K #### [facility] [address] [place] [address] [employer] Operator: Kehinde Woodward MD Potassiumon 01-06-2020 Potassium [Moles/Vol] 4.4 mmol/L 3.7 - 5.3 mmol/L [facility] Work Phone: Hemoglobin and Hematocrit, B loodon 10-24-2019 Hematocrit (Bld) [Volume fraction] 23.6 % Low 40.7 - 50.3 % [place], [place] Hemoglobin (Bld) [Mass/Vol] 7.3 g/dL Low 13 - 17 g/dL [place] Interpretation and review of laboratory results Abnormal [place] Hgb/Hcton 10-24-2019 Hematocrit (Bld) [Volume fraction] 23.6 % Low 40.7-50.3 [facility] Comment on above: Performed By: #### H H #### [facility] [address] [place] [address] [place] Operator: Kehinde Woodward MD Hemoglobin (Bld) [Mass/Vol] 7.3 g/dL Low 13.0-17.0 [facility] Comment on above: Performed By: #### H H #### [facility] [address] [place] [address] [place] Operator: Kehinde Woodward MD Hemoglobinon 08-27-2019 Hemoglobin (Bld) [Mass/Vol] 7.5 g/dL Low 13.0-17.0 [facility] Comment on above: Performed By: #### H GB #### [facility] [address] [place], [place] [id number] [place] Operator: Kehinde Woodward MD Hemoglobin (Bld) [Mass/Vol] 7.5 g/dL Low 13 - 17 g/dL [place] Interpretation and review of laboratory results Abnormal [place] Hemoglobinon 08-08-2019 Hemoglobin (Bld) [Mass/Vol] 8.3 g/dL Low 13.0-17.0 [facility] Comment on above: Performed By: #### H GB #### [facility] [address] [place] [address] [place] Operator: Kehinde Woodward MD Hemoglobin (Bld) [Mass/Vol] 8.3 g/dL Low 13 - 17 g/dL [place] Interpretation and review of laboratory results Abnormal [place] Hemoglobinon 08-04-2019 Hemoglobin (Bld) [Mass/Vol] 8.0 g/dL Low 13.0-17.0 [facility] Comment on above: Performed By: #### H GB #### [facility] [address] [place] [address] [place] Operator: Kehinde Woodward MD Hemoglobin A1Con 08-03-2019 HbA1c (Bld) [Mass fraction] % Low 4.8-5.9 [facility] Comment on above: Result Comment: The ADA and AACC recommend providing the estimated average glucose result to permit better patient understanding of their HBA1c result. Performed By: #### G LYHGB #### [facility] [address] [place] [address] [employer] Operator: Kehinde Woodward MD Glucose [Mass/Vol] mg/dL mg/dL [place], [place] Comment on above: The ADA and AACC rec ommend providing the estimated average glucose result to permit better patient understanding of their HBA1c result. HbA1c (Bld) [Mass fraction] % Low 4.8 - 5.9 % [place] Interpretation and review of laboratory results Abnormal [place] Hemoglobinon 08-01-2019 Hemoglobin (Bld) [Mass/Vol] 8.1 g/dL Low 13.0-17.0 [facility] Comment on above: Performed By: #### H GB #### [facility] [address] [place] [id number] [place] Operator: Kehinde Woodward MD Hemoglobin (Bld) [Mass/Vol] 8.1 g/dL Low 13 - 17 g/dL [place] Interpretation and review of laboratory results Abnormal [place] Hgb/Hcton 06-10-2019 Hematocrit (Bld) [Volume fraction] 24.3 % Low 40.7-50.3 [facility] Comment on above: Performed By: #### H H #### [facility] [address] [place] [id number] [place] Operator: Kehinde Woodward MD Hemoglobin (Bld) [Mass/Vol] 7.4 g/dL Low 13.0-17.0 [facility] Comment on above: Performed By: #### H H #### [facility] [address] [place] [id number] [place] Operator: Kehinde Woodward MD Hemoglobinon 06-01-2019 Hemoglobin (Bld) [Mass/Vol] 7.2 g/dL Low 13.0-17.0 [facility] Comment on above: Performed By: #### H GB #### [facility] [address] [place], [facility] [place] Operator: Kehinde Woodward MD K (Potassium)on 01-14-2019 Potassium [Moles/Vol] 3.6 mmol/L Low 3.7-5.3 [facility] Comment on above: Performed By: #### K #### [facility] [address] [place] [id number] [place] Operator: Kehinde Woodward MD Otheron 10-19-2018 IMPRESSION: [...] Amitriptyline(50), Amphetamine(250), Atenolol(500), Barbiturates(1000), Benzoylecgonine(50), Buprenorphine(50), Bupropion(25), Caffeine(08797), Chlordiazepoxide(50), Chlorpheniramine(100), Chlorpromazine(50), Citalopram(100), Clonazepam(200), Cocaine(25), Codeine(200), [...] [place], [facility] Drugs identified Screen Nom (U) For Medical Purposes Only, Non-forensic, screen results are presumptive. No confirmatory testing will follow. Invalid Interpretation Code MISSY, OS Comment on above: This Liquid Chromato [...] Amitriptyline(50), Amphetamine(250), Atenolol(500), Barbiturates(200), Benzoylecgonine(50), Buprenorphine(500), Bupropion(25), Caffeine(25210), Cannabinoids(THC)(50), Chlordiazepoxide(50), Chlorpheniramine(100), Chlorpromazine(50), Citalopram(100), Clonazepam(200), Cocaine(25), [...] Time Vital Sign Value Performing Clinician Facility 12-26-2024 09:32-0500 Diastolic blood pressure 71 mm[Hg] Zuly Kiana Work Phone: [facility] 12-26-2024 09:32-0500 Heart rate 62 /min Zuly Bruno Work Phone: [facility] 12-26-2024 09:32-0500 Respiratory rate 16 /min Zulytray Torresholz Work Phone: [facility] 12-26-2024 09:32-0500 SaO2% (BldA) [Mass fraction] 95 % Zuly Brianholz Work Phone: [facility] 12-26-2024 09:32-0500 Systolic blood pressure 105 mm[Hg] Zuly Brianholz Work Phone: [facility] 12-26-2024 06:58-0500 Body height 170.18 cm Zuly Torresholomer Work Phone: [facility] 12-26-2024 06:58-0500 Body weight 89.35 kg Zuly Bruno Work Phone: [facility] 12-15-2024 09:15-0500 Body height 170.18 cm [facility] 12-15-2024 09:15-0500 Body mass index (BMI) [Ratio] 30.8 kg/m2 [facility] 12-15-2024 09:15-0500 Body weight 89.35 kg [facility] 12-15-2024 09:15-0500 Diastolic blood pressure 72 mm[Hg] [facility] 12-15-2024 09:15-0500 Heart rate 82 /min [facility] 12-15-2024 09:15-0500 Systolic blood pressure 126 mm[Hg] [facility] 11-22-2024 09:35-0500 Diastolic blood pressure 95 mm[Hg] Steph Orzech [facility] 11-22-2024 09:35-0500 Heart rate 68 /min Steph Orzech [facility] 11-22-2024 09:35-0500 Systolic blood pressure 135 mm[Hg] Steph Almodovar [facility] 11-07-2024 14:29-0500 Body height 170.2 cm Zuly Owentamekaz [employer] Work Phone: [facility] 11-07-2024 14:29-0500 Body mass index (BMI) [Ratio] 31.83 kg/m2 Zulytray Owenlydiaholz [employer] Work Phone: [facility] 11-07-2024 14:29-0500 Body temperature 98.2 [degF] Zuly Lexiehholz [employer] Work Phone: [facility] 11-07-2024 14:29-0500 Body weight 92.17 kg Zulytray Owentamekaz [employer] Work Phone: [facility] 11-07-2024 14:29-0500 Diastolic blood pressure 86 mm[Hg] Zuly Lexiehholz [employer] Work Phone: [facility] 11-07-2024 14:29-0500 Heart rate 63 /min Zuly Aichholz [employer] Work Phone: [facility] 11-07-2024 14:29-0500 Respiratory rate 18 /min Zuly Lexiehholz [employer] Work Phone: [facility] 11-07-2024 14:29-0500 SaO2% (BldA) [Mass fraction] 96 % Zuly Lexiehholz [employer] Work Phone: [facility] 11-07-2024 14:29-0500 Systolic blood pressure 128 mm[Hg] Zuly Lexiehholz [employer] Work Phone: [facility] 09-08-2024 13:40-0400 Blood Pressure Location Clementinapattie Montesinos [facility] 09-08-2024 13:40-0400 Diastolic blood pressure 90 mm[Hg] Clementina Galea [facility] 09-08-2024 13:40-0400 Heart rate 66 /min Clementina Galea [facility] 09-08-2024 13:40-0400 Systolic blood pressure 144 mm[Hg] Clementina Galea [facility] 08-23-2024 08:45-0400 Body height 170.2 cm Zuly Bruno [employer] Work Phone: [facility] 08-23-2024 08:45-0400 Body mass index (BMI) [Ratio] 30.26 kg/m2 Zuly Marissaz [employer] Work Phone: [facility] 08-23-2024 08:45-0400 Body temperature 98.01 [degF] Zuly Kiana [employer] Work Phone: [facility] 08-23-2024 08:45-0400 Body weight 87.64 kg Zuly Marissaz [employer] Work Phone: [facility] 08-23-2024 08:45-0400 Diastolic blood pressure 80 mm[Hg] Zuly Marissaz [employer] Work Phone: [facility] 08-23-2024 08:45-0400 Heart rate 61 /min Zuly Marissaz [employer] Work Phone: [facility] 08-23-2024 08:45-0400 Respiratory rate 18 /min Zuly Marissaz [employer] Work Phone: [facility] 08-23-2024 08:45-0400 SaO2% (BldA) [Mass fraction] 96 % Zuly Marissaz [employer] Work Phone: [facility] 08-23-2024 08:45-0400 Systolic blood pressure 132 mm[Hg] Zuly Marissaz [employer] Work Phone: [facility] 06-17-2024 08:37-0400 Body mass index (BMI) [Ratio] 29.43 kg/m2 Rebeca Gutierrez [employer] Work Phone: [facility] 06-17-2024 08:37-0400 Body temperature 97.39 [degF] Rebeca Gutierrez [employer] Work Phone: [facility] 06-17-2024 08:37-0400 Body weight 85.23 kg Rebeca Gutierrez [employer] Work Phone: [facility] 06-17-2024 08:37-0400 Diastolic blood pressure 75 mm[Hg] Rebeca Gutierrez [employer] Work Phone: [facility] 06-17-2024 08:37-0400 Heart rate 53 /min Rebeca Gutierrez [employer] Work Phone: [facility] 06-17-2024 08:37-0400 Systolic blood pressure 143 mm[Hg] Rebeca Gutierrez [employer] Work Phone: [facility] 06-17-2024 08:36-0400 Body mass index (BMI) [Ratio] 29.43 kg/m2 Daisha Sobotka DO Work Phone: [facility] 06-17-2024 08:36-0400 Body temperature 97.39 [degF] Daisha Sobotka DO Work Phone: [facility] 06-17-2024 08:36-0400 Body weight 85.23 kg Daisha Sobotka DO Work Phone: [facility] 06-17-2024 08:36-0400 Diastolic blood pressure 75 mm[Hg] Daisha Sobotka DO Work Phone: [facility] 06-17-2024 08:36-0400 Heart rate 53 /min Daisha Sobotka DO Work Phone: [facility] 06-17-2024 08:36-0400 Systolic blood pressure 143 mm[Hg] Daisha Max DO Work Phone: [facility] 02-26-2024 09:07-0400 Diastolic blood pressure 56 mm[Hg] Candie Almaguer MD Work Phone: [facility] 02-26-2024 09:07-0400 Heart rate 65 /min Candie Almaguer MD Work Phone: [facility] 02-26-2024 09:07-0400 Systolic blood pressure 113 mm[Hg] Candie Almaguer MD Work Phone: [facility] 02-26-2024 09:06-0400 Body height 170.2 cm Candie Almaguer MD Work Phone: [facility] 02-26-2024 09:06-0400 Body mass index (BMI) [Ratio] 28.9 kg/m2 Candie Almaguer MD Work Phone: [facility] 02-26-2024 09:06-0400 Body weight 83.69 kg Candie Almaguer MD Work Phone: [facility] 02-26-2024 09:06-0400 Respiratory rate 20 /min Candie Almaguer MD Work Phone: [facility] 02-26-2024 09:06-0400 SaO2% (BldA) [Mass fraction] 97 % Candie Almaguer MD Work Phone: [facility] 01-23-2024 15:04-0500 Body temperature 97.9 [degF] Kevin Prince MD Work Phone: [facility] 01-23-2024 15:04-0500 Diastolic blood pressure 67 mm[Hg] Kevin Prince MD Work Phone: [facility] 01-23-2024 15:04-0500 Heart rate 51 /min Kevin Prince MD Work Phone: [facility] 01-23-2024 15:04-0500 Respiratory rate 16 /min Kevin Prince MD Work Phone: [facility] 01-23-2024 15:04-0500 SaO2% (BldA) [Mass fraction] 94 % Kevin Prince MD Work Phone: [facility] 01-23-2024 15:04-0500 Systolic blood pressure 151 mm[Hg] Kevin Prince MD Work Phone: [facility] 01-23-2024 10:46-0500 Body mass index (BMI) [Ratio] 30.94 kg/m2 Kevin Prince MD Work Phone: [facility] 01-23-2024 10:46-0500 Body weight 89.6 kg Kevin Prince MD Work Phone: [facility] 01-18-2024 11:21-0500 Body height 170.2 cm Kevin Prince MD Work Phone: [facility] 01-06-2024 09:04-0500 Body height 170.2 cm Zuly Bruno [employer] Work Phone: [facility] 01-06-2024 09:04-0500 Body mass index (BMI) [Ratio] 32.42 kg/m2 Zuly Bruno [employer] Work Phone: [facility] 01-06-2024 09:04-0500 Body temperature 97.81 [degF] Zuly Bruno [employer] Work Phone: [facility] 01-06-2024 09:04-0500 Body weight 93.89 kg Zuly Bruno [employer] Work Phone: [facility] 01-06-2024 09:04-0500 Diastolic blood pressure 70 mm[Hg] Zuly Torresholz [employer] Work Phone: [facility] 01-06-2024 09:04-0500 Heart rate 95 /min Zuly Torresholz [employer] Work Phone: [facility] 01-06-2024 09:04-0500 Respiratory rate 17 /min Zuly Torresholz [employer] Work Phone: [facility] 01-06-2024 09:04-0500 SaO2% (BldA) [Mass fraction] 99 % Zulytray Torresholz [employer] Work Phone: [facility] 01-06-2024 09:04-0500 Systolic blood pressure 138 mm[Hg] Zuly Brianholz [employer] Work Phone: [facility] 09-11-2023 10:31-0400 Body temperature 97.81 [degF] Steve Tammy MBBS Work Phone: [facility] 09-11-2023 10:31-0400 Diastolic blood pressure 66 mm[Hg] Steve Tammy MBBS Work Phone: [facility] 09-11-2023 10:31-0400 Heart rate 70 /min Steve Tammy MBBS Work Phone: [facility] 09-11-2023 10:31-0400 Respiratory rate 20 /min Steve Tammy MBBS Work Phone: [facility] 09-11-2023 10:31-0400 SaO2% (BldA) [Mass fraction] 91 % Steve Tammy MBBS Work Phone: [facility] 09-11-2023 10:31-0400 Systolic blood pressure 129 mm[Hg] Steve Tammy MBBS Work Phone: [facility] 09-10-2023 15:50-0400 Body mass index (BMI) [Ratio] 31.99 kg/m2 Steve Tammy MBBS Work Phone: [facility] 09-10-2023 15:50-0400 Body weight 92.67 kg Steve Tammy MBBS Work Phone: [facility] 09-02-2023 07:32-0400 Body height 170.2 cm Steve Tammy MBBS Work Phone: [facility] 08-28-2023 13:33-0400 Body height 170.2 cm Steve Tammy MBBS Work Phone: [facility] 08-28-2023 13:33-0400 Body mass index (BMI) [Ratio] 32.12 kg/m2 Steve Tammy MBBS Work Phone: [facility] 08-28-2023 13:33-0400 Body temperature 97.3 [degF] Steve Tammy MBBS Work Phone: [facility] 08-28-2023 13:33-0400 Body weight 93.03 kg Steve Tammy MBBS Work Phone: [facility] 08-28-2023 13:33-0400 Diastolic blood pressure 41 mm[Hg] Steve Tammy MBBS Work Phone: [facility] 08-28-2023 13:33-0400 Heart rate 116 /min Steve Tammy MBBS Work Phone: [facility] 08-28-2023 13:33-0400 Systolic blood pressure 106 mm[Hg] Steve Tammy MBBS Work Phone: [facility] 06-12-2023 14:50-0400 Body mass index (BMI) [Ratio] 33.8 kg/m2 Rebeca Gutierrez [employer] Work Phone: [facility] 06-12-2023 14:50-0400 Body temperature 97.3 [degF] Rebeca Gutierrez [employer] Work Phone: [facility] 06-12-2023 14:50-0400 Body weight 97.89 kg Rebeca Gutierrez [employer] Work Phone: [facility] 06-12-2023 14:50-0400 Diastolic blood pressure 77 mm[Hg] Rebeca Gutierrez [employer] Work Phone: [facility] 06-12-2023 14:50-0400 Heart rate 76 /min Rebeca Gutierrez [employer] Work Phone: [facility] 06-12-2023 14:50-0400 Systolic blood pressure 146 mm[Hg] Rebeca Gutierrez [employer] Work Phone: [facility] 01-16-2023 08:57-0500 Body height 170.2 cm [facility] Work Phone: [facility] 01-16-2023 08:57-0500 Body mass index (BMI) [Ratio] 33.66 kg/m2 [facility] Work Phone: [facility] 01-16-2023 08:57-0500 Body temperature 97.3 [degF] [facility] Work Phone: [facility] 01-16-2023 08:57-0500 Body weight 97.48 kg [facility] Work Phone: [facility] 01-16-2023 08:57-0500 Diastolic blood pressure 75 mm[Hg] [facility] Work Phone: [facility] 01-16-2023 08:57-0500 Heart rate 76 /min [facility] Work Phone: [facility] 01-16-2023 08:57-0500 Systolic blood pressure 142 mm[Hg] [facility] Work Phone: [facility] 09-10-2022 09:38-0400 Body height 170.2 cm Ryan Yepez MD Work Phone: [facility] 09-10-2022 09:38-0400 Body mass index (BMI) [Ratio] 33.67 kg/m2 Ryan Yepez MD Work Phone: [facility] 09-10-2022 09:38-0400 Body weight 97.52 kg Ryan Yepez MD Work Phone: [facility] 09-10-2022 09:38-0400 Diastolic blood pressure 83 mm[Hg] Ryan Yepez MD Work Phone: [facility] 09-10-2022 09:38-0400 Heart rate 64 /min Ryan Yepez MD Work Phone: [facility] 09-10-2022 09:38-0400 SaO2% (BldA) [Mass fraction] 96 % Ryan Yepez MD Work Phone: [facility] 09-10-2022 09:38-0400 Systolic blood pressure 129 mm[Hg] Ryan Yepez MD Work Phone: [facility] 07-07-2022 13:48-0400 Diastolic blood pressure 76 mm[Hg] Ryan Yepez MD Work Phone: [facility] 07-07-2022 13:48-0400 Heart rate 82 /min Ryan Yepez MD Work Phone: [facility] 07-07-2022 13:48-0400 SaO2% (BldA) [Mass fraction] 96 % Ryan Yepez MD Work Phone: [facility] 07-07-2022 13:48-0400 Systolic blood pressure 141 mm[Hg] Ryan Yepez MD Work Phone: [facility] 06-27-2022 13:32-0400 Body height 170.2 cm Ryan Yepez MD Work Phone: [facility] 06-27-2022 13:32-0400 Body mass index (BMI) [Ratio] 34.24 kg/m2 Ryan Yepez MD Work Phone: [facility] 06-27-2022 13:32-0400 Body temperature 98.6 [degF] Ryan Yepez MD Work Phone: [phone] [address] 06-27-2022 13:32-0400 Body weight 99.16 kg Ryan Yepez MD Work Phone: [facility] 06-27-2022 13:32-0400 Diastolic blood pressure 78 mm[Hg] Ryan Yepez MD Work Phone: [facility] 06-27-2022 13:32-0400 Heart rate 77 /min Ryan Yepez MD Work Phone: [facility] 06-27-2022 13:32-0400 SaO2% (BldA) [Mass fraction] 95 % Ryan Yepez MD Work Phone: [facility] 06-27-2022 13:32-0400 Systolic blood pressure 121 mm[Hg] Ryan Yepez MD Work Phone: [facility] 06-27-2022 10:52-0400 Body height 170.2 cm Rena Brewster RN [facility] 06-27-2022 10:52-0400 Body mass index (BMI) [Ratio] 34.46 kg/m2 Rena Brewster RN [facility] 06-27-2022 10:52-0400 Body temperature 98.2 [degF] Rena Brewster RN [facility] 06-27-2022 10:52-0400 Body weight 99.79 kg Rena Brewster RN [facility] 06-27-2022 10:52-0400 Diastolic blood pressure 73 mm[Hg] Rena Brewster RN [facility] 06-27-2022 10:52-0400 Heart rate 78 /min Rena Brewster RN [facility] 06-27-2022 10:52-0400 Respiratory rate 20 /min Rena Brewster RN [facility] 06-27-2022 10:52-0400 SaO2% (BldA) [Mass fraction] 97 % Rena Brewster RN [facility] 06-27-2022 10:52-0400 Systolic blood pressure 135 mm[Hg] Rena Brewster RN [facility] 06-12-2022 14:23-0400 Body mass index (BMI) [Ratio] 34.59 kg/m2 Steve Tammy MBBS Work Phone: [facility] 06-12-2022 14:23-0400 Body temperature 97 [degF] Steve Tammy MBBS Work Phone: [facility] 06-12-2022 14:23-0400 Body weight 100.2 kg Steve Tammy MBBS Work Phone: [facility] 06-12-2022 14:23-0400 Diastolic blood pressure 66 mm[Hg] Steve Tammy MBBS Work Phone: [facility] 06-12-2022 14:23-0400 Heart rate 63 /min Steve Tammy MBBS Work Phone: [facility] 06-12-2022 14:23-0400 Systolic blood pressure 133 mm[Hg] Steve Tammy MBBS Work Phone: [facility] 05-20-2022 15:21-0400 Body temperature 97.9 [degF] Gian Villatoro MD Work Phone: [facility] 05-20-2022 15:21-0400 Diastolic blood pressure 64 mm[Hg] Gian Villatoro MD Work Phone: [facility] 05-20-2022 15:21-0400 Heart rate 55 /min Gian Villatoro MD Work Phone: [facility] 05-20-2022 15:21-0400 Respiratory rate 15 /min Gian Villatoro MD Work Phone: [phone] [address] 05-20-2022 15:21-0400 SaO2% (BldA) [Mass fraction] 95 % Gian Villatoro MD Work Phone: [facility] 05-20-2022 15:21-0400 Systolic blood pressure 145 mm[Hg] Gian Villatoro MD Work Phone: [phone] [address] 05-19-2022 12:15-0400 Body mass index (BMI) [Ratio] 35.87 kg/m2 Gian Villatoro MD Work Phone: [phone](752)[phone] [address] 05-19-2022 12:15-0400 Body weight 103.92 kg Gian Villatoro MD Work Phone: [phone] [place] [address] Comment on above: standing scale 05-16-2022 16:19-0400 Body height 170.2 cm Gian Villatoro MD Work Phone: [facility] 10-19-2018 08:44-0500 BMI (Body Mass Index) 26.58 kg/m2 [facility] Work Phone: 10-19-2018 08:44-0500 BP Diastolic 76 mm[Hg] [facility] Work Phone: 10-19-2018 08:44-0500 BP Systolic 144 mm[Hg] [facility] Work Phone: 10-19-2018 08:44-0500 Height 172.7 cm [facility] Work Phone: 10-19-2018 08:44-0500 Pulse (Heart Rate) 92 /min [facility] Work Phone: 10-19-2018 08:44-0500 Pulse Oximetry 99 % [facility] Work Phone: 10-19-2018 08:44-0500 Respiratory Rate 16 /min [facility] Work Phone: 10-19-2018 08:44-0500 Weight 79.29 kg [facility] Work Phone: 10-12-2018 09:50-0500 BMI (Body Mass Index) 27.24 kg/m2 [facility] Work Phone: 10-12-2018 09:50-0500 Body Temperature 98.6 [degF] [facility] Work Phone: 10-12-2018 09:50-0500 BP Diastolic 80 mm[Hg] [facility] Work Phone: 10-12-2018 09:50-0500 BP Systolic 157 mm[Hg] [facility] Work Phone: 10-12-2018 09:50-0500 Height 169.5 cm [facility] Work Phone: 10-12-2018 09:50-0500 Pulse (Heart Rate) 94 /min Alfredito ramonasebastianjuan j [facility] Work Phone: 10-12-2018 09:50-0500 Weight 78.29 kg Alfredito ramonasebastianjuan j [facility] Work Phone: Encounters Encounter Date Encounter Type Care Provider Facility Start: 12-26-2024 Non-patient / Non-visit Zuly olmedo Work Phone: [facility] Work Phone: Start: 12-26-2024 End: 12-26-2024 Admission to same day surgery center Zuly Bruno Work Phone: [facility] Work Phone: Start: 12-26-2024 End: 12-26-2024 ambulatory Zuly Bruno Work Phone: [facility] Work Phone: Start: 12-23-2024 End: 12-23-2024 Refill Zuly Bruno [employer] Work Phone: [facility] Start: 12-15-2024 End: 12-15-2024 ambulatory [facility] Work Phone: Start: 12-15-2024 End: 12-15-2024 Patient encounter procedure [facility] Work Phone: Start: 11-22-2024 End: 11-22-2024 ambulatory Steph X Orzech Facility: [place] Start: 11-22-2024 End: 11-22-2024 Patient encounter procedure Steph X Orzech [facility] Start: 11-21-2024 End: 11-21-2024 Clinisync Result Encounter Generic External Data Provider [facility] External Department Unsolicited Start: 11-21-2024 End: 11-21-2024 Clinisync Result Encounter Generic External Data Provider [facility] External Department Unsolicited Start: 11-07-2024 End: 11-07-2024 Office outpatient visit 25 minutes Zuly Bruno [employer] Work Phone: [facility] Comment on above: Primary hypertension (CMS/HCC) (Primary Dx); Immunodeficiency, unspecified (CMS/HCC); Liver transplant status (CMS/HCC); Portal hypertension (CMS/HCC); Obesity (BMI 30-39.9); Other osteoporosis without current pathological fracture ([facility]/HCC); Kidney stones Start: 11-07-2024 End: 11-07-2024 ambulatory ZULY BRUNO Not Available Start: 11-07-2024 End: 11-07-2024 Clinisync Result Encounter Generic External Data Provider [facility] External Department Unsolicited Start: 11-07-2024 End: 11-07-2024 Clinisync Result Encounter Generic External Data Provider [facility] External Department Unsolicited Start: 10-31-2024 End: 10-31-2024 ambulatory Evan Bolton RPh,PharmD [facility] Start: 10-31-2024 End: 10-31-2024 Patient encounter procedure Evan Bolton RPh,PharmD [facility] Start: 10-29-2024 End: 10-29-2024 Refill Zuly Bruno NP Work Phone: [facility] Comment on above: Decreased urine stre am Start: 10-24-2024 End: 10-24-2024 Clinisync Result Encounter Generic External Data Provider [facility] External Department Unsolicited Start: 10-24-2024 End: 10-24-2024 Clinisync Result Encounter Generic External Data Provider [...] Start: 09-08-2024 End: 09-08-2024 ambulatory ZULY BRUNO Facility:[facility] Start: 09-08-2024 End: 09-08-2024 Patient encounter procedure Clementina Mejias Leifpaulette [facility] Start: 09-07-2024 ambulatory EVAN WHITE Facility:[facility] Start: 09-05-2024 End: 09-05-2024 ambulatory Angel Fete RPh,PharmD [facility] Start: 09-05-2024 End: 09-05-2024 Patient encounter procedure Angel Fete RPh,PharmD [facility] Start: 08-29-2024 End: 08-29-2024 Clinisync Result Encounter Generic External Data Provider [facility] External Department Unsolicited Start: 08-29-2024 End: 08-29-2024 Clinisync Result Encounter Generic External Data Provider [facility] External Department Unsolicited Start: 08-24-2024 ambulatory Steph Almodovar Facility: [facility] Start: 08-23-2024 End: 08-23-2024 Bamboo flowsheet Zuly Bruno [employer] Work Phone: [facility] Start: 08-23-2024 End: 08-23-2024 Bamboo flowsheet Zuly Bruno [employer] Work Phone: [facility] Start: 08-23-2024 End: 08-23-2024 Office outpatient visit 25 minutes Zuly Bruno [employer] Work Phone: [facility] Comment on above: Primary hypertension (CMS/HCC) (Primary Dx); Portal hypertension (CMS/HCC); Alcoholic cirrhosis of liver without ascites (CMS/HCC); Obesity (BMI 30-39.9); Gastroesophageal reflux disease, unspecified whether esophagitis present; Immunocompromised (CMS/HCC); Organ transplant; Tremor; S/P liver transplant (CMS/HCC); Blood glucose elevated; Left carotid bruit; Mixed hyperlipidemia (CMS/HCC); Prostate cancer screening; Dysuria; Abdominal pain, generalized; DARLENE (obstructive sleep apnea); Bilateral lower extremity edema; Other constipation; Decreased urine stream Start: 08-23-2024 End: 08-23-2024 ambulatory ZULY BRUNO Not Available Start: 08-15-2024 End: 08-15-2024 Clinisync Result Encounter Generic External Data Provider [facility] External Department Unsolicited Start: 08-15-2024 End: 08-15-2024 Clinisync Result Encounter Generic External Data Provider [facility] External Department Unsolicited Start: 08-11-2024 End: 08-12-2024 Refill Zuly Bruno [employer] Work Phone: [facility] Comment on above: Primary hypertension (CMS/HCC) Start: 08-02-2024 End: 08-02-2024 Clinisync Result Encounter Generic External Data Provider [facility] External Department Unsolicited Start: 08-02-2024 End: 08-02-2024 Clinisync Result Encounter Generic External Data Provider [facility] External Department Unsolicited Start: 06-23-2024 End: 06-23-2024 ambulatory Meka Munoz [facility] Start: 06-23-2024 End: 06-23-2024 Patient encounter procedure Meka Munoz [facility] Start: 06-17-2024 End: 06-17-2024 Office outpatient visit 25 minutes Daisha Max DO Work Phone: [facility] Comment on above: Liver lesion (Primar y Dx); Liver transplant recipient; High risk medication use; Therapeutic drug monitoring; 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) Start: 06-17-2024 ambulatory ZULY BRUNO Facility: [place] [facility] Start: 05-26-2024 End: 05-26-2024 ambulatory Evan Bolton RP,PharmD Pharmacy Outpatient RX [facility] Start: 05-26-2024 End: 05-26-2024 Patient encounter procedure Evan Bolton [facility],PharmJenna Pharmacy Outpatient RX [facility] Start: 05-13-2024 End: 05-13-2024 ambulatory [facility] Start: 04-18-2024 End: 04-18-2024 ambulatory ZULY BRUNO Not Available Start: 03-24-2024 End: 03-24-2024 Patient encounter procedure Angel Carpio [facility],PharmD Pharmacy Outpatient RX [facility] Start: 03-24-2024 End: 03-24-2024 ambulatory Angel Carpio [facility],PharmD Pharmacy Outpatient RX [facility] Start: 03-22-2024 End: 03-22-2024 ambulatory JOHNNA BRINK Not Available Start: 03-17-2024 End: 03-17-2024 ambulatory JOHNNA BRINK Not Available Start: 03-14-2024 End: 03-14-2024 ambulatory FIDELINA DANIEL Not Available Start: 03-10-2024 End: 03-10-2024 ambulatory JOHNNA BRINK Not Available Start: 03-08-2024 End: 03-08-2024 ambulatory JOHNNA BRINK Not Available Start: 03-03-2024 End: 03-03-2024 ambulatory JOHNNA BRINK Not Available Start: 03-02-2024 End: 03-02-2024 ambulatory Meka Munoz [facility] Pharmacy Outpatient RX [facility] Start: 03-02-2024 End: 03-02-2024 Patient encounter procedure Meka Munoz [facility] Pharmacy Outpatient RX Yanci Start: 03-01-2024 ambulatory ZULY BRUNO Facility: [facility] Start: 03-01-2024 End: 03-01-2024 ambulatory JOHNNA BRINK Not Available Start: 02-26-2024 ambulatory CANDIE ALMAGUER Facility: [facility] Start: 02-26-2024 End: 02-26-2024 Office outpatient new 30 minutes Candie Almaguer MD Work Phone: [employer] [facility] Comment on above: Heart failure, diast olic, acute (Primary Dx) Start: 02-26-2024 ambulatory KELVINMASSIEL PACHECO Facility: [facility] Start: 02-25-2024 End: 02-25-2024 ambulatory FIDELINA SANCHEZ Not Available Start: 02-23-2024 End: 02-23-2024 ambulatory PALMA PALACIOS Not Available Start: 02-11-2024 Patient encounter procedure Generic Provider [facility] Start: 02-11-2024 End: 02-11-2024 ambulatory ZULY BRUNO Not Available Start: 01-16-2024 End: 01-23-2024 Encounter for other preprocedural examination KELVIN PACHECO Facility:[facility] Start: 01-16-2024 End: 01-23-2024 Evaluation and management of inpatient Kevin Prince MD Work Phone: [id number] Comment on above: Pleural effusion on right Start: 01-16-2024 End: 01-23-2024 Patient encounter status Kevin Prince MD Work Phone: [facility] Work Phone: Start: 01-12-2024 End: 01-12-2024 [...] Office outpatient visit 25 minutes Zuly Bruno [employer] Work Phone: [facility] Comment on above: Bilateral lower extr emity edema (Primary Dx); 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); Primary hypertension ([facility]); Shortness of breath Start: 01-06-2024 End: 01-06-2024 ambulatory ZULY BRUNO Not Available Start: 01-01-2024 Clinisync Result Encounter Generic External Data Provider [facility] External Department Unsolicited Start: 01-01-2024 Clinisync Result Encounter Generic External Data Provider [facility] External Department Unsolicited Start: 10-06-2023 ambulatory Angel Shirin RPh,PharmD Pharmacy Outpatient RX [facility] Start: 10-06-2023 Patient encounter procedure Angel Carpio Mojgan,PharmD Pharmacy Outpatient RX [facility] Start: 08-28-2023 End: 09-11-2023 Evaluation and management of inpatient Steve S Tammy MBBS Work Phone: [id number] Start: 08-28-2023 End: 08-28-2023 Office outpatient visit 25 minutes Steve S Tammy MBBS Work Phone: [facility] Comment on above: Immunosuppressed sta tus (Primary Dx); Kidney replaced by transplant; Aftercare following organ transplant; High risk medication use; Other general symptoms and signs; Abnormal blood chemistry; Hypertension secondary to other renal disorders Start: 08-19-2023 ambulatory Meka rueda [facility] Pharmacy Outpatient RX [facility] Start: 08-19-2023 Patient encounter procedure Meka Munoz [facility] Pharmacy Outpatient RX [facility] Start: 06-12-2023 End: 06-12-2023 Office outpatient visit 25 minutes Steve S Tammy MBBS Work Phone: [facility] Comment on above: 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) Start: 06-10-2023 ambulatory Maren Bar RPh,PharmD Pharmacy Outpatient RX [facility] Start: 06-10-2023 Patient encounter procedure Maren Dipika RP,PharmD Pharmacy Outpatient RX [facility] Start: 04-28-2023 End: 04-29-[address] DOCTOR EVANS Facility:[facility] Start: 03-12-2023 ambulatory Angel Fete RPh,PharmD Pharmacy Outpatient RX [facility] Start: 03-12-2023 Patient encounter procedure Angel Fete RPh,PharmD Pharmacy Outpatient RX [facility] Start: 03-10-2023 ambulatory Angel Fete RPh,PharmD Pharmacy Outpatient RX [facility] Start: 03-10-2023 Patient encounter procedure Angel Madsene RPh,PharmD Pharmacy Outpatient RX [facility] Start: 03-02-2023 End: 03-03-[address] DOCTOR EVANS Facility:[facility] Start: 01-16-2023 End: 01-16-2023 Office outpatient visit 25 minutes Daisha Max DO Work Phone: [facility] [place] [facility] Comment on above: Abnormal blood [...] MD Work Phone: [facility] Comment on above: BPH with obstruction /lower urinary tract symptoms (Primary Dx); Encounter for screening for malignant neoplasm of prostate Start: 08-28-2022 End: 08-29-2022 ambulatory ROB HOBSONA KIANA Facility:[facility] Start: 08-14-2022 End: 08-15-[address] DOCTOR EVANS Facility:[facility] Start: 07-07-2022 End: 07-07-2022 Patient encounter procedure Ryan Yepez MD Work Phone: [facility] Comment on above: Other hydronephrosis (Primary Dx); [...] MD Work Phone: [facility] Comment on above: Other hydronephrosis (Primary Dx) [...] [facility] Comment on above: Immunosuppressed sta [...] [place] Facility: Start: 03-14-2022 ambulatory Comfort Rivera [facility] Work Phone: Pharmacy Outpatient RX [facility] Start: 03-14-2022 Patient encounter procedure Comfort Rivera [facility] Work Phone: Pharmacy Outpatient RX [facility] Start: 06-14-2021 End: 06-14-2021 ambulatory Comfort Rivera [facility] Work Phone: [facility] Outpatient Pharm[facility] Start: 06-14-2021 Patient encounter procedure Comfort Rivera [facility] Work Phone: [facility] Outpatient Pharmacy Start: 01-20-2020 End: 01-27-2020 Patient encounter procedure PEPE CASE Facility:[facility] Start: 01-06-2020 End: 01-07-2020 Patient encounter procedure [facility] Start: 01-06-2020 End: 01-06-2020 Subsequent hospital visit by physician [facility] Start: 10-24-2019 End: 10-25-2019 [facility] Start: 10-24-2019 End: 10-24-2019 Subsequent hospital visit by physician [facility] Start: 08-27-2019 End: 08-28-2019 Patient encounter procedure [facility] Start: 08-27-2019 End: 08-27-2019 Subsequent hospital visit by physician [facility] Start: 08-08-2019 End: 08-09-2019 Patient encounter procedure [facility] Start: 08-08-2019 End: 08-08-2019 Subsequent hospital visit by physician [facility] Start: 08-03-2019 End: 08-04-2019 Patient encounter procedure [facility] Start: 08-03-2019 End: 08-03-2019 Subsequent hospital visit by physician [facility] Start: 08-01-2019 End: 08-02-2019 Patient encounter procedure [facility] Start: 08-01-2019 End: 08-01-2019 Subsequent hospital visit by physician [facility] Start: 06-10-2019 End: 06-11-2019 Patient encounter procedure [facility] Start: 06-01-2019 End: 06-02-2019 Patient encounter procedure [facility] Start: 01-14-2019 End: 01-15-2019 Patient encounter procedure [facility] Start: 11-17-2018 End: 11-17-2018 Patient encounter procedure Fidelina Pierson [facility] Pre Transplant Office Comment on above: Social Work Follow-u p Start: 10-19-2018 End: 10-19-2018 Patient encounter [facility] Pre Transplant Office Comment on [...] Start: 10-13-2018 End: 10-13-2018 Patient encounter procedure [facility] Pre Transplant Office Comment on above: Reschedule Outside Medical Allan rds Request Start: 10-12-2018 End: 10-12-2018 Patient encounter procedure Sophie Singerhaja [facility] Pre Transplant Office Comment on above: Alcoholic cirrhosis, unspecified whether ascites present (Primary Dx); Pre-transplant evaluation for liver transplant Start: 10-12-2018 End: 10-12-2018 Office outpatient new 60 minutes Alfredito Restrepo Work Phone: [facility] Pre Transplant Office Comment on above: Alcoholic cirrhosis, unspecified whether ascites present; ESRD (end stage renal disease) on dialysis; Pre-transplant evaluation for liver transplant Start: 10-06-2018 End: 10-06-2018 Patient encounter procedure Yovani Orr Work Phone: Department of Radiology Comment on above: Canceled (Insurance Company Redirected Pt) Start: 10-05-2018 Patient encounter status Comfort Rivera MOJGAN Work Phone: [facility] Procedures Date Procedure Procedure Detail Performing Clinician Start: 12-26-2024 Esophagogastroduodenoscopy Zuly Bruno Work Phone: Start: 11-22-2024 History of renal transplant Steph elder Start: 11-21-2024 ALL CBC WITH AUTO DIFF Generic External Data Provider Start: 11-07-2024 ALL CBC WITH AUTO DIFF Generic External Data Provider Start: 10-24-2024 ALL CBC WITH AUTO DIFF Generic External Data Provider Start: 10-10-2024 ALL CBC WITH AUTO DIFF Generic External Data Provider Start: 09-27-2024 ALL CBC WITH AUTO DIFF Generic External Data Provider Start: 09-13-2024 ALL CBC WITH AUTO DIFF Generic External Data Provider Start: 09-08-2024 History of renal transplant Clementina Yadav ea Start: 09-07-2024 Follow-up visit Follow-up EVAN WHITE Start: 08-29-2024 ALL CBC WITH AUTO DIFF Generic External Data Provider Start: 08-15-2024 ALL CBC WITH AUTO DIFF Generic External Data Provider Start: 08-15-2024 [facility] URINE T PROTEIN CREAT RATIO Generic External Data Provider Start: 08-02-2024 ALL CBC WITH AUTO DIFF Generic External Data Provider Start: 08-02-2024 [facility] URINE T PROTEIN CREAT RATIO Generic External Data Provider Start: 01-23-2024 Glucose measurement, blood Kelvin Pacheco MD, LU Work Phone: Start: 01-23-2024 Glucose measurement, blood Kelvin Pacheco MD, MBAPOORVA Work Phone: Start: 01-23-2024 Assay of magnesium Timothy Joseph MD Work Phone: Start: 01-23-2024 Hepatic function panel Arelis Mera MD Work Phone: Start: 01-23-2024 Oscillating positive expiratory pressure (flutter) physiotherapy Arelis Mera MD Work Phone: Start: 01-22-2024 CARDIAC RHYTHM Other Other Start: 01-22-2024 US Unspecified body region Mini West Work Phone: Start: 01-22-2024 Antibody screen Kevin Prince MD Work Phone: Start: 01-22-2024 Antibody screen KELVIN PACHECO Comment on above: Performed By: #### XM #### [facility] ([facility]) [address] [place] [address] Start: 01-22-2024 Assay of magnesium Timothy Joseph MD Work Phone: Start: 01-22-2024 Drug screen quantitative tacrolimus Arelis Mera MD Work Phone: Start: 01-21-2024 Assay of magnesium Timothy Joseph MD Work Phone: Start: 01-21-2024 Drug screen quantitative tacrolimus Arelis Mera MD Work Phone: Start: 01-20-2024 Right heart cath o2 saturation & cardiac output LU Jain MD Work Phone: Start: 01-20-2024 End: 01-20-2024 Blood count hemoglobin LU Jain MD Work Phone: Start: 01-20-2024 Cardiac catheterization LU Jain MD Work Phone: Start: 01-20-2024 Assay of magnesium Timothy Joseph MD Work Phone: Start: 01-20-2024 Hepatic function panel Arelis Mera MD Work Phone: Start: 01-20-2024 ITRACONAZOLE LEVEL Fidelina Alarcon [facility] Work Phone: Start: 01-20-2024 Oscillating positive expiratory pressure (flutter) physiotherapy Arelis Mera MD Work Phone: Start: 01-19-2024 Duplex scan hemodialysis access Arelis Mera MD Work Phone: Start: 01-19-2024 Oscillating positive expiratory pressure (flutter) physiotherapy Arelis Mera MD Work Phone: Start: 01-19-2024 Assay of magnesium Timothy Joseph MD Work Phone: Start: 01-19-2024 Drug screen quantitative tacrolimus Arelis Mera MD Work Phone: Start: 01-19-2024 Iadna nos quantification each organism Fidelina Alarcon [facility] Work Phone: Start: 01-18-2024 Echo tthrc r-t 2d w/wom-mode compl spec&colr d Arelis Mera MD Work Phone: Start: 01-18-2024 Assay of magnesium Timothy Joseph MD Work Phone: Start: 01-18-2024 Hepatic function panel Arelis Mera MD Work Phone: Start: 01-17-2024 Ct abdomen & pelvis w/o contrast material Arelis Mera MD Work Phone: Start: 01-17-2024 Assay of magnesium Timothy Joseph MD Work Phone: Start: 01-17-2024 Hepatic function panel Arelis Mera MD Work Phone: Start: 01-17-2024 Iaad ia mult step method nos each organism Arelis Mera MD Work Phone: Start: 01-16-2024 Radiologic exam chest 2 views Arelis lambert MD Work Phone: Start: 01-16-2024 Dup-scan artl angela abdl/pel/scrot&/rpr orgn com Timothy Joseph MD Work Phone: Start: 01-16-2024 Drug screen quantitative tacrolimus Timothy Joseph MD Work Phone: Start: 01-16-2024 Bilirubin direct Timothy Joseph MD Work Phone: Start: 01-16-2024 CBC AND ELECTRONIC DIFF Timothy Joseph MD Work Phone: Start: 01-16-2024 Complete blood count with white cell differential, automated Timothy Joseph MD Work Phone: Start: 01-16-2024 DARYL AURIS SCREEN BY PCR Carol Ann avelar [employer] Work Phone: Start: 01-08-2024 ALL CBC WITH AUTO DIFF Generic External Data Provider Start: 01-01-2024 ALL CBC WITH AUTO DIFF Generic External Data Provider Start: 09-11-2023 Glucose measurement, blood Kevin tipton MD Work Phone: Start: 09-11-2023 Assay of magnesium Evan Kelly MD Work Phone: Start: 09-11-2023 Drug screen quantitative tacrolimus Evan Kelly MD Work Phone: Start: 09-10-2023 Assay of magnesium Evan Kelly MD Work Phone: Start: 09-10-2023 Hepatic function panel Laurel Serrano MD, PhD Work Phone: Start: 09-09-2023 Assay of magnesium Evan Kelly MD Work Phone: Start: 09-09-2023 Drug screen quantitative tacrolimus Evan Kelly MD Work Phone: Start: 09-08-2023 Assay of magnesium Evan Kelly MD Work Phone: Start: 09-08-2023 Hepatic function panel Evan West Work Phone: Start: 09-07-2023 Assay of magnesium Evan Kelly MD Work Phone: Start: 09-07-2023 Hepatic function panel Evan West Work Phone: Start: 09-06-2023 Assay of magnesium Evan Kelly MD Work Phone: Start: 09-06-2023 Hepatic function panel Evan West Work Phone: Start: 09-06-2023 Oscillating positive expiratory pressure (flutter) physiotherapy Laurel Serrano MD, PhD Work Phone: Start: 09-05-2023 Assay of magnesium Evan Kelly MD Work Phone: Start: 09-05-2023 Hepatic function panel Evan West Work Phone: Start: 09-05-2023 CONTINUOUS CARDIAC MONITORING STRIP Other Other Start: 09-04-2023 Calcium ionized Kevin Prince MD Work Phone: Start: 09-04-2023 Radiologic exam chest single view Barber Diaz MD Work Phone: Start: 09-04-2023 Oscillating positive expiratory pressure (flutter) physiotherapy Laurel Serrano MD, PhD Work Phone: Start: 09-04-2023 Assay of magnesium Evan Kelly MD Work Phone: Start: 09-04-2023 Hepatic function panel Evan West Work Phone: Start: 09-03-2023 Flow cytometry cell surf marker techl only ea Izzy Loera MD Work Phone: Start: 09-03-2023 Radiologic exam chest single view Izabel Loera MD Work Phone: Start: 09-03-2023 Assay of magnesium Evan Kelly MD Work Phone: Start: 09-03-2023 Hepatic function panel Evan West Work Phone: Start: 09-02-2023 Brnchsc incl fluor gdnce dx w/cell washg spx Izzy Loera MD Work Phone: Start: 09-02-2023 End: 09-02-2023 Culture fngi mold/yeast prsmptv oth xcpt blood Crow Diaz MD Work Phone: Start: 09-02-2023 End: 09-02-2023 Cytp slctv cell enhancement interpj xcpt c/v Crow Diaz MD Work Phone: Start: 09-02-2023 Assay of magnesium Evan Kelly MD Work Phone: Start: 09-02-2023 Hepatic function panel Evan West Work Phone: Start: 09-02-2023 Iaad ia hiv-1 ag w/hiv-1 & hiv-2 antbdy single Evan Kelly MD Work Phone: Start: 09-01-2023 Iaad ia cryptococcus neoformans Evan Kelly MD Work Phone: Start: 09-01-2023 Assay of magnesium Evan Kelly MD Work Phone: Start: 09-01-2023 Hepatic function panel Evan West Work Phone: Start: 09-01-2023 Iadna nos amplified probe tq each organism Evan A Cindy DO Work Phone: Start: 08-31-2023 End: 08-31-2023 Iaad ia mult step method nos each organism Laurel Serrano MD, PhD Work Phone: Start: 08-31-2023 Ct abdomen & pelvis w/o contrast material Laurel Serrano MD, PhD Work Phone: Start: 08-31-2023 Ct thorax w/o contrast material Laurel Serrano MD, PhD Work Phone: Start: 08-31-2023 Assay of ferritin Laurel Serrano MD, PhD Work Phone: Start: 08-31-2023 Hepatic function panel Evan West Work Phone: Start: 08-30-2023 Assay of magnesium Evan Kelly MD Work Phone: Start: 08-30-2023 Hepatic function panel Evan West Work Phone: Start: 08-29-2023 Prothrombin time Laurel Serrano MD, PhD Work Phone: Start: 08-29-2023 Us trnsplnt kidney real time w/image docmtn Aric Turner MD Work Phone: Start: 08-29-2023 Drug screen quantitative tacrolimus Aric Turner MD Work Phone: Start: 08-29-2023 Assay of magnesium Evan Kelly MD Work Phone: Start: 08-29-2023 Hepatic function panel Evan West Work Phone: Start: 08-29-2023 Iaad ia mult step method nos each organism Aric Turner MD Work Phone: Start: 08-29-2023 Culture bct isol&prsmptv id isolate ea urine Laurel Serrano MD, PhD Work Phone: Start: 08-29-2023 EXTRA MICRO Aric Turner MD Work Phone: Start: 08-29-2023 URINALYSIS REFLEX TO CULTURE Aric Turner MD Work Phone: Start: 08-28-2023 Radiologic exam chest single view Aric Turner MD Work Phone: Start: 08-28-2023 DARYL AURIS SCREEN BY PCR Carol Ann Velasco Tn ll [employer] Work Phone: Start: 08-28-2023 CBC AND ELECTRONIC DIFF Gi Aranda MD Work Phone: Start: 08-28-2023 Complete blood count with white cell differential, automated Gi Aranda MD Work Phone: Start: 08-28-2023 End: 08-28-2023 Culture bacterial blood aerobic w/id isolates Aric Turner MD Work Phone: Start: 08-28-2023 Electrolyte panel Gi Aranda MD Work Phone: Start: 08-28-2023 Respiratory virus DNA+RNA [Identifier] in Unspecified specimen by ESTELITA with probe detection Gi Aranda MD Work Phone: Start: 09-15-[address] DOCTOR EVANS Comment on above: Performed By: #### CMP #### [facility] [address] [address] [address] Dwight Waters Start: 07-07-2022 Rmvl nfros tube req fluoro guidance Ryan Yepez MD Work Phone: Start: 06-27-2022 Ct abdomen & pelvis w/o contrast material Evan Byrd MD Work Phone: Start: 06-12-2022 Culture bct isol&prsmptv id isolate ea urine Steve Munoz MBBS Work Phone: Start: 06-12-2022 EXTRA MICRO Stevemassiel Farrari MBBS Work Phone: Start: 06-12-2022 Hemoglobin glycosylated a1c Steve S Tammy MBBS Work Phone: Start: 06-12-2022 Hepatic function panel Yovani Orr MD Work Phone: Start: 06-12-2022 URINALYSIS REFLEX TO CULTURE Steve Munoz MBBS Work Phone: Start: 05-20-2022 Urography antegrade rs&i Evan Byrd MD Work Phone: Start: 05-20-2022 Assay of magnesium Evan Bennett MD Work Phone: Start: 05-19-2022 Assay of magnesium Nishant Gamez MD Work Phone: Start: 05-19-2022 Assay of magnesium Evan Bennett MD Work Phone: Start: 05-18-2022 Assay of magnesium Nishant Gamez MD Work Phone: Start: 05-18-2022 Assay of magnesium Evan Bennett MD Work Phone: Start: 05-17-2022 Radiologic exam chest single view Nishant Gamez MD Work Phone: Start: 05-17-2022 Assay of magnesium Nishant Gamez MD Work Phone: Start: 05-17-2022 Plmt nephrostomy cath prq new access rs&i Stephan Beard MD Start: 05-17-2022 Culture bct isol&prsmptv id isolate ea urine Nishant Gamez MD Work Phone: Start: 05-17-2022 Assay of magnesium Evan Bennett MD Work Phone: Start: 05-16-2022 Us trnsplnt kidney real time w/image docmtn Nishant Gamez MD Work Phone: Start: 05-16-2022 Creatinine blood Nishant Gamez MD Work Phone: Start: 05-16-2022 Assay of magnesium Evan Bennett MD Work Phone: Start: 05-16-2022 Drug screen quantitative tacrolimus Evan Bennett MD Work Phone: Start: 05-16-2022 Chloride urine Evan Bennett MD Work Phone: Start: 05-16-2022 Culture bacterial blood aerobic w/id isolates Evan Bennett MD Work Phone: Start: 05-16-2022 SARS-CoV-2 (COVID-19) RNA [Presence] in Unspecified specimen by ESTELITA with probe detection Fred Prince MD Work Phone: Start: 05-15-2022 Radiologic exam chest single view Camelia Bennett MD Work Phone: Start: 05-15-2022 Culture bct isol&prsmptv id isolate ea urine Vladislav Elizalde MD Work Phone: Start: 05-15-2022 EXTRA MICRO Vladislav Elizalde MD Work Phone: Start: 05-15-2022 Urnls dip stick/tablet rgnt auto w/o microscopy Vladislav Elizalde MD Work Phone: Start: 05-15-2022 Assay of lipase Vladislav Elizalde MD Work Phone: Start: 05-15-2022 CBC AND ELECTRONIC DIFF Vladislav Elizalde MD Work Phone: Start: 05-15-2022 Complete blood count with white cell differential, automated Vladislav Elizalde MD Work Phone: Start: 05-15-2022 GOLD TOP TUBE Vladislav Elizalde MD Work Phone: Start: 05-15-2022 Hepatic function panel Vladislav West Work Phone: Start: 05-15-2022 LAVENDER TOP TUBE Vladislav Elizalde MD Work Phone: Start: 05-15-2022 LT BLUE TOP TUBE Vladislav Elizalde MD Work Phone: Start: 05-15-2022 MINT GREEN TOP TUBE Vladislav Elizalde MD Work Phone: Start: 05-15-2022 RAINBOW DRAW Vladislav Elizalde MD Work Phone: Start: 05-10-2020 H/O: liver recipient S/P liver transplant Comfort Rivera [facility] Work Phone: Start: 04-08-2020 H/O: liver recipient Liver transplant recipient Comfort Rivera [facility] Work Phone: Start: 01-06-2020 Potassium serum plasma/whole blood ROB PATINO Start: 01-06-2020 Potassium serum plasma/whole blood Elyse Ross Work Phone: Start: 11-30-2019 Transplant of kidney Steph Almodovar Start: 11-30-2019 Transplantation of liver Steph Almodovar Start: 10-24-2019 HEMOGLOBIN AND HEMATOCRIT, BLOOD ROB K ASMANI Start: 10-24-2019 Blood count hemoglobin Tana S Cornelar Work Phone: Start: 09-20-2019 Colonoscopy Generic Provider Start: 08-27-2019 Blood count hemoglobin Rena Ross Work Phone: Start: 08-08-2019 Blood count hemoglobin ROB KASMANI Start: 08-08-2019 Blood count hemoglobin Rob Kasmani Work Phone: Start: 08-03-2019 Hemoglobin glycosylated a1c ROB KASMAN I Start: 08-03-2019 Hemoglobin glycosylated a1c Rob Kasman i Work Phone: Start: 08-01-2019 Blood count hemoglobin Rob Kasmani Work Phone: Start: 07-25-2019 History of renal transplant -donor kidney transplant recipient Comfort Rivera [facility] Work Phone: Start: 06-10-2019 HEMOGLOBIN AND HEMATOCRIT, BLOOD ROB K ASMANI Start: 06-01-2019 Blood count hemoglobin ROB KASMANI Start: 03-22-2019 Lipid 1996 panel - Serum or Plasma Comfort Rivera [facility] Work Phone: Start: 01-14-2019 Potassium [...] 10-12-2018 End: 10-12-2018 Antibody cytomegalovirus cmv Yovani gregory Work Phone: Start: 10-12-2018 End: 10-12-2018 Antibody dann-montes eb virus viral capsid vca Yovani Orr Work Phone: Start: 10-12-2018 End: 10-12-2018 Antibody herpes smplx type 1 Yovani gregory Work Phone: Start: 10-12-2018 End: 10-12-2018 Antibody [...] End: 10-12-2018 Assay of phosphatase alkaline Yovani valencia Work Phone: Start: 10-12-2018 End: 10-12-2018 Bilirubin [...] 10-12-2018 Hepatitis b surf antibody hbsab Yovani gould Work Phone: Start: 10-12-2018 End: 10-12-2018 Hepatitis [...] Sobotka DO Work Phone: H/O: liver recipient Liver trans plant status Zuly Bruon [employer] Work Phone: H/O: liver recipient S/P liver transplant (CMS/HCC) Zuly Bruno [employer] Work Phone: History of renal transplant Kidn ey replaced by transplant Steve LEIGH Work Phone: History of renal transplant Dece ased-donor kidney transplant recipient Ryan Yepez MD Work Phone: History of renal transplant Kidn ey replaced by transplant Daisha Mtzka DO Work Phone: History of renal transplant Kidn ey replaced by transplant Steve LEIGH Work Phone: History of renal transplant Kidn ey replaced by transplant Steve MORENOBS Work Phone: History of renal transplant Dece ased-donor kidney transplant recipient Steve LEIGH Work Phone: History of renal transplant Kidn ey replaced by transplant Rebeca Gutierrez [employer]EARCH ENGINEER Work Phone: Plan of Treatment Date Care Activity Detail Author Start: 09-20-2029 Screening for malignant neoplasm of colon [facility] Start: 10-24-2025 Potassium [Moles/volume] in Serum or Plasma [facility]AS[facility]UM [facility] Start: 08-15-2025 Potassium [Moles/volume] in Serum or Plasma POTASSIUM [facility] Start: 07-04-2025 Potassium [Moles/volume] in Serum or Plasma POTASSIUM [facility] Start: 06-20-2025 Potassium [Moles/volume] in Serum or Plasma POTASSIUM [facility] Start: 06-16-2025 End: 06-16-2025 Patient encounter procedure [facility] Start: 06-13-2025 Potassium [Moles/volume] in Serum or Plasma POTASSIUM [facility] Start: 05-23-2025 Potassium [Moles/volume] in Serum or Plasma POTASSIUM [facility] Start: 03-28-2025 Potassium [Moles/volume] in Serum or Plasma POTASSIUM [facility] Start: 03-21-2025 Potassium [Moles/volume] in Serum or Plasma POTASSIUM [facility] Start: 02-28-2025 Potassium [Moles/volume] in Serum or Plasma POTASSIUM [facility] Start: 02-10-2025 Medicare Annual Wellness (AWV) Medicare Annual Wellness (AWV) [facility] Start: 02-08-2025 End: 02-08-2025 Patient encounter procedure 02/08/2025 8:40 AM EDT Office Visit [facility] [address] [place] [address] Zuly Bruno, BA [address] [place] [address] [facility] Start: 01-23-2025 Potassium [Moles/volume] in Serum or Plasma POTASSIUM [facility] Start: 12-26-2024 [facility] Start: 11-07-2024 End: 11-07-2024 Patient encounter procedure 11/07/2024 2:20 PM EST Office Visit [facility] [address] [place] [address] Zuly Bruno, BA [address] [place] [address] [facility] Start: 10-25-2024 End: 10-25-2024 Patient encounter procedure 10/25/2024 8:40 AM EST Office Visit [facility] [address] [place] [phone] Zuly Bruno, BA [address] [place] [phone] [facility] Start: 09-29-2024 Influenza vaccination Influenza Vaccine (#1) [facility] Comment on above: Postponed from 07/31/2024 (Patient Refus ed) Start: 09-07-2024 End: 09-07-2024 Telemedicine consultation with patient 09/07/2024 3:00 PM EDT Telemedicine Infectious Diseases Care [facility] [address] [facility] 4th [place] [phone] Evan White DO [address] [place] [address] [facility] Start: 08-31-2024 Screening for malignant neoplasm of lung [facility] Start: 08-23-2024 End: 08-23-2025 Bacteria identified in Urine by Culture Urine culture (clean catch) Microbiology Routine Dysuria Expected: 08/23/2024 (Approximate), Expires: 08/23/2025 [facility] Comment on above: Expected: 08/23/2024 (Approximate), Expi res: 08/23/2025 Start: 08-23-2024 End: 08-23-2025 DXA Skeletal system Views for bone density DEXA bone density Imaging Routine Immunocompromised (CMS/HCC) Organ transplant Expected: 08/23/2024, Expires: 08/23/2025 [facility] Work Phone: Comment on above: Expected: 08/23/2024, Expires: Start: 08-23-2024 End: 08-23-2025 Hemoglobin A1c/Hemoglobin.total in Blood Hemoglobin A1c Lab Routine Blood glucose elevated Expected: 08/23/2024 (Approximate), Expires: 08/23/2025 [facility] Comment on above: Expected: 08/23/2024 (Approximate), Expi res: 08/23/2025 Start: 08-23-2024 End: 08-23-2025 Lipid 1996 panel - Serum or Plasma Lipid panel Lab Routine Mixed hyperlipidemia (CMS/HCC) Expected: 08/23/2024 (Approximate), Expires: 08/23/2025 [facility] Comment on above: Expected: 08/23/2024 (Approximate), Expi res: 08/23/2025 Start: 08-23-2024 End: 08-23-2025 Prostate specific Ag [Mass/volume] in Serum or Plasma PSA Lab Routine Prostate cancer screening Expected: 08/23/2024 (Approximate), Expires: 08/23/2025 [facility] Comment on above: Expected: 08/23/2024 (Approximate), Expi res: 08/23/2025 Start: 08-23-2024 End: 08-23-2025 Thyrotropin [Units/volume] in Serum or Plasma TSH Lab Routine Tremor Expected: 08/23/2024 (Approximate), Expires: 08/23/2025 [facility] Comment on above: Expected: 08/23/2024 (Approximate), Expi res: 08/23/2025 Start: 08-23-2024 End: 08-23-2025 Urinalysis complete panel - Urine Urinalysis with reflex microscopic (clean catch) Lab Routine Dysuria Expected: 08/23/2024 (Approximate), Expires: 08/23/2025 [facility] Comment on above: Expected: 08/23/2024 (Approximate), Expi res: 08/23/2025 Start: 08-23-2024 End: 08-23-2025 US.doppler Carotid arteries - bilateral Vascular US carotid artery duplex bilateral Imaging Routine Left carotid bruit Mixed hyperlipidemia (CMS/HCC) Expected: 08/23/2024, Expires: 08/23/2025 [facility] Comment on above: Expected: 08/23/2024, Expires: Start: 08-23-2024 End: 08-23-2024 Patient encounter procedure 08/23/2024 8:40 AM EDT Office Visit [facility] [address] [place] [address] Zuly Bruno NP [address] [place] [address] Primary hypertension (CMS/HCC) (Primary Dx); Portal hypertension (CMS/HCC); Alcoholic cirrhosis of liver without ascites (CMS/HCC) [facility] Comment on above: Primary hypertension (CMS/HCC) (Primary Dx); Portal hypertension (CMS/HCC); Alcoholic cirrhosis of liver without ascites (CMS/HCC) Start: 08-22-2024 End: 08-22-2024 Patient encounter procedure 08/22/2024 9:00 AM EDT Office Visit [facility] [address] [place] [phone] Zuly Bruno NP [address] [place] [phone] [facility] Start: 07-31-2024 Influenza vaccination INFLUENZA VACCINE (#1) [facility] Start: 06-17-2024 End: 06-17-2024 ambulatory [facility] Start: 06-17-2024 End: 06-17-2024 Patient encounter procedure [facility] Start: 03-22-2024 Fasting lipid profile LIPID SCREENING [facility] Start: 03-22-2024 Lipid panel [facility] Start: 02-26-2024 End: 02-26-2024 Patient encounter procedure 02/26/2024 9:30 AM EDT Office Visit [facility] [address] [place] [phone] Candie Almaguer MD [address] [place] [phone] [facility] Start: 02-11-2024 End: 02-11-2024 Patient encounter procedure 02/11/2024 10:30 AM EDT Office Visit [facility] [address] [place] [phone] Zuly Bruno NP [address] [place] [address] [facility] Start: 02-09-2024 End: 02-09-2024 Telemedicine consultation with patient 02/09/2024 3:30 PM EDT Telemedicine Infectious Diseases Care [facility] [address] [facility] 4th [place] [phone] Hakeem Alamo MD [address] [facility] 4th [place] [address] Infect[facility] Start: 01-15-2024 End: 01-15-2024 ambulatory [facility] Transplant [facility] Start: 01-15-2024 End: 01-15-2024 Patient encounter procedure [facility] Start: 01-06-2024 End: 01-06-2026 Echocardiogram 2D complete Echocardiogram 2D complete Echocardiography Routine DARLENE (obstructive sleep apnea) Primary hypertension (CMS/HCC) Bilateral lower extremity edema Shortness of breath Expected: 01/06/2024 (Approximate), Expires: 01/06/2026 [facility] Work Phone: Comment on above: Expected: 01/06/2024 (Approximate), Expi res: 01/06/2026 Start: 01-06-2024 End: 01-06-2024 Patient encounter procedure 01/06/2024 9:00 AM EST [facility] [address] [place] [address] Zuly Bruno NP [address] [place] [address] [facility] Start: 12-08-2023 End: 09-07-2024 CT Chest WO contrast [facility] Work Phone: Start: 12-01-2023 COVID-19 VACCINE (2 - Moderna risk series) COVID-19 VACCINE (2 - Moderna risk series) [facility] Start: 09-23-2023 End: 09-23-2023 ambulatory [facility] Start: 09-23-2023 End: 09-23-2023 Telemedicine consultation with patient 09/23/2023 4:00 PM EDT Telemedicine Infectious Diseases Care [facility] [address] [place] [address] Hakeem Alamo MD [address] [place] [address] Infectious Diseases Care [facility] Start: 09-15-2023 End: 09-10-2024 ITRACONAZOLE LEVEL [facility] Start: 08-25-2023 End: 08-25-2024 ALLOSCREEN RECIPIENT (POST TX PRA) ALLOSCREEN RECIPIENT (POST TX PRA) Lab Routine Kidney replaced by transplant Aftercare following organ transplant Immunosuppressed status High risk medication use Other general symptoms and signs Abnormal blood chemistry Expected: 08/25/2023, Expires: 08/25/2024 [facility] Comment on above: Expected: 08/25/2023, Expires: Start: 07-31-2023 Influenza vaccination [facility] Start: 06-12-2023 End: 06-12-2023 Patient encounter procedure 06/12/2023 Office Visit Transplant Surgery Steve Munoz, JOSHBS [address] [place] [address] [facility] Start: 03-11-2023 End: 03-11-2023 Telemedicine consultation with patient 03/11/2023 Telemedicine Urology Ryan Yepez MD [address] [place] [address] [address] [place] [address] [facility] Start: 01-16-2023 End: 01-16-2023 Patient encounter procedure 01/16/2023 Office Visit Transplant Surgery [facility] Trans[facility] Start: 10-31-2022 End: 10-31-2022 Patient encounter procedure 10/31/2022 Office Visit Transplant Surgery Steve Munoz MBBS [address] [place] [address] [facility] Start: 09-10-2022 End: 09-10-2023 PSA screening PSA, SCREENING Lab Routine BPH with obstruction/lower urinary tract symptoms Encounter for screening for malignant neoplasm of prostate Expected: 09/10/2022 (Approximate), Expires: 09/10/2023 [facility] Comment on above: Expected: 09/10/2022 (Approximate), Expi res: 09/10/2023 Start: 08-11-2022 End: 08-11-2022 Patient encounter procedure 08/11/2022 Office Visit Urology Ryan Yepez MD [address] [facility] [address] [place] [address] [facility] Start: 07-31-2022 Influenza vaccination [facility] Start: 07-07-2022 End: 07-07-2022 Patient encounter procedure 07/07/2022 Office Visit Ryan Webster MD [address] [facility] [address] [place] [address] [facility] Start: 07-07-2022 End: 07-07-2023 FLUORO IMAGING FOR UROLOGY [facility] Comment on above: Expected: 07/07/2022, Expires: 3 1 Occurrences starti ng 07/07/2022 until 07/07/2022 Start: 06-27-2022 End: 06-27-2022 Patient encounter procedure 06/27/2022 Office Visit Ryan Webster MD [address] [facility] [address] [place] [address] [facility] Start: 06-27-2022 End: 06-27-2023 Basic metabolic 2000 panel - Serum or Plasma BASIC METABOLIC PANEL Lab Routine Other hydronephrosis Expected: 06/27/2022, Expires: 06/27/2023 [facility] Comment on above: Expected: 06/27/2022, Expires: 3 Start: 06-27-2022 End: 06-27-2022 Patient encounter procedure 06/27/2022 Appointment Computerized Tomography Scan Ryan Yepez MD [address] [facility] [address] [place] [phone] Department of Radiology Start: 06-15-2022 End: 05-16-2023 CT Abdomen and Pelvis WO contrast CT ABDOMEN/PELVIS WITHOUT CONTRAST Imaging Routine FAYE (acute kidney injury) Expected: 06/15/2022 (Approximate), Expires: 05/16/2023 [facility] Work Phone: Comment on above: Expected: 06/15/2022 (Approximate), Expi res: 05/16/2023 Start: 06-12-2022 End: 06-12-2022 Patient encounter procedure 06/12/2022 Office Visit Transplant Surgery Steve Munoz MBBS [address] [place] [address] [facility] Start: 06-11-2022 End: 06-11-2023 BK VIRUS DNA QN, PCR, PLASMA BK VIRUS DNA QN, PCR, PLASMA Lab Routine Kidney replaced by transplant Liver replaced by transplant Abnormal blood chemistry Expected: 06/11/2022, Expires: 06/11/2023 [facility] Comment on above: Expected: 06/11/2022, Expires: 3 Start: 06-04-2022 End: 06-04-2022 Patient encounter procedure 06/04/2022 Office Visit [facility] Start: 10-18-2021 End: 10-18-2021 Patient encounter procedure 10/18/2021 Office Visit Transplant Surgery Steve Munoz MBBS [address] [place] [phone] [facility] Start: 07-31-2021 Influenza vaccination INFLUENZA VACCINE (#1) [facility] Start: 07-26-2021 End: 07-26-2021 Patient encounter procedure 07/26/2021 Office Visit Transplant Surgery [facility] Start: 2021 Prostate specific antigen measurement [facility] Start: 2021 Screening for malignant neoplasm of lung LUNG CANCER SCREENING [facility] Start: 2021 Zoster vaccine hzv live for subcutaneous use ZOSTER (SHINGLES) VACCINE (1 of 2) [facility] Start: 09-20-2020 Colonoscopy COLORECTAL CANCER SCREENING DISCUSSION [facility] Start: 09-20-2020 Screening for malignant neoplasm of colon [facility] Start: 07-31-2019 Influenza vaccination Flu vaccine (#1) [place], [place] Start: 05-22-2019 Annual Wellness Visit (AWV) Annual Wellness Visit (AWV) [place] Start: 04-18-2019 End: 10-19-2019 Ultrasonography of abdomen US ABDOMEN RUQ/LIVER/GB Routine Cirrhosis of liver without ascites, unspecified hepatic cirrhosis type Expected: 04/18/2019 (Approximate), Expires: 10/19/2019 [facility] Work Phone: Comment on above: Expected: 04/18/2019 (Approximate), Expi res: 10/19/2019 Start: 01-25-2019 End: 01-25-2019 Ambulatory 01/25/2019 Office Visit Gastroenterology Christin Elizabeth, CAR [employer]EARCH ENGINEER [address] [place] [address] Division of Gastroenterology and Hepatology [facility] Start: 11-19-2018 End: 11-19-2018 Ambulatory 11/19/2018 Appointment [facility] Start: 11-19-2018 End: 11-19-2018 Ambulatory [facility] Start: 10-19-2018 End: 10-19-2018 Ambulatory Ultrasound Jak[facility] Start: 10-12-2018 End: 10-12-2019 Hemoglobin A1c/Hemoglobin.total mass fraction (Bld) HEMOGLOBIN A1C Routine Alcoholic cirrhosis, unspecified whether ascites present Pre-transplant evaluation for liver transplant Expected: 10/12/2018, Expires: 10/12/2019 [facility] Work Phone: Comment on above: Expected: 10/12/2018, Expires: 9 Start: 10-12-2018 End: 10-12-2019 TYPE AND SCREEN - NOT FOR TRANSFUSION TYPE AND SCREEN - NOT FOR TRANSFUSION Routine Alcoholic cirrhosis, unspecified whether ascites present Pre-transplant evaluation for liver transplant Expected: 10/12/2018, Expires: 10/12/2019 [facility] Work Phone: Comment on above: Expected: 10/12/2018, Expires: 9 Start: 07-31-2018 Influenza vaccination INFLUENZA VACCINE (#1) [facility] Work Phone: Start: 2011 Fasting lipid profile LIPID SCREENING [facility] Work Phone: Start: 2011 Lipid screen Lipid screen [place], [place] Start: 1990 DTaP/Tdap/Td vaccine (1 - Tdap) DTaP/Tdap/Td vaccine (1 - Tdap) [place] Start: 1990 Hepatitis B vaccination HEP B VACCINE (1 of 3 - 19+ 3-dose series) [facility] Start: 1990 Hepatitis B Vaccine (1 of 3 - Risk Recombivax 3-dose series) Hepatitis B Vaccine (1 of 3 - Risk Recombivax 3-dose series) [place] Start: 1990 Third diphtheria, tetanus and acellular pertussis (DTaP) vaccination [facility] Start: 1990 Zoster vaccine hzv live for subcutaneous use ZOSTER (SHINGLES) VACCINE (1 of 2) [facility] Start: 1990 [facility] Start: 1989 Tetanus vaccination TETANUS [facility] Start: 1986 HIV screen HIV screen [place], [place] Start: 02-17-1984 HIV screening HIV SCREENING DISCUSSION [facility] Work Phone: Start: 1983 COVID-19 VACCINE (1) COVID-19 VACCINE (1) [facility] Start: 1982 DTaP/Tdap/Td vaccine (1 - Tdap) DTaP/Tdap/Td vaccine (1 - Tdap) [place] Start: 1977 Pneumococcal 0-64 years Vaccine (1 of 3 - PCV13) Pneumococcal 0-64 years Vaccine (1 of 3 - PCV13) [place] Start: 1977 PNEUMOCOCCAL VACCINE SERIES (1 - PCV) PNEUMOCOCCAL VACCINE SERIES (1 - PCV) [facility] Start: 1977 PNEUMOCOCCAL VACCINE SERIES (1 of 2 - PCV) PNEUMOCOCCAL VACCINE SERIES (1 of 2 - PCV) [facility] Start: 1977 [facility] Start: 02-17-1976 COVID-19 VACCINE (#1) COVID-19 VACCINE (#1) [facility] Start: 02-17-1976 [facility] Start: 1971 COVID-19 VACCINE (#1) COVID-19 VACCINE (#1) [facility] Start: 1971 Hepatitis B vaccination HEP B VACCINE (1 of 3 - 3-dose series) [facility] Start: 1971 Medicare Annual Wellness (AWV) Medicare Annual Wellness (AWV) [facility] Start: 1971 Screening for malignant neoplasm of colon [facility] Start: 1971 Tetanus vaccination [facility] BK VIRUS DNA QN, PCR , PLASMA BK VIRUS DNA QN, PCR, PLASMA Lab Routine Kidney replaced by transplant Liver replaced by transplant Abnormal blood chemistry 06/12/2022 3:38 PM EDT [facility] CALCULI, URINARY (KIDNEY STONE) CALCULI, URINARY (KIDNEY STONE) Fluids Routine 05/19/2022 8:16 AM EDT [facility] Work Phone: CANNABINOIDS, QUANT (URINE)THC CONFIRMATION CANNABINOIDS, QUANT (URINE)THC CONFIRMATION Routine Alcoholic cirrhosis, unspecified whether ascites present ESRD (end stage renal disease) on dialysis Pre-transplant evaluation for liver transplant 10/12/2018 12:57 PM [facility] Work Phone: End: 09-10-2024 CHEM 6 (LYTES, BUN CREA) [facility] EBV VCA IGG AB EBV VCA IGG AB R outine Alcoholic cirrhosis, unspecified whether ascites present ESRD (end stage renal disease) on dialysis Pre-transplant evaluation for liver transplant 10/12/2018 12:57 PM [facility] Work Phone: Fungus identified in Unspecified specimen by Culture [facility] HLA TYPING (SOLID ORGAN) HLA TYPING (SOLID ORGAN) Routine Alcoholic cirrhosis, unspecified whether ascites present ESRD (end stage renal disease) on dialysis Pre-transplant evaluation for liver transplant 10/12/2018 12:57 PM [facility] Work Phone: HSV 1 AND 2 IGG ANTIBODY HSV 1 AND 2 IGG ANTIBODY Routine Alcoholic cirrhosis, unspecified whether ascites present ESRD (end stage renal disease) on dialysis Pre-transplant evaluation for liver transplant 10/12/2018 12:57 PM [facility] Work Phone: MR Abdomen WO and W contrast IV MRI ABDOMEN WITH AND WITHOUT CONTRAST Imaging Routine Liver lesion Ordered: 06/17/2024 [facility] Comment on above: Ordered: 06/17/2024 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 specific culture [facility] Patient Education Hemorrhoids ED Diverticulosis Know your Meds [facility] Work Phone: PLACEMENT NEPHROSTOM Y CATHETER PERCUTANEOUS W/ IMAGE GUIDANCE PLACEMENT NEPHROSTOMY CATHETER PERCUTANEOUS W/ IMAGE GUIDANCE Imaging Routine Hydronephrosis due to obstruction of ureteral orifice FAYE (acute kidney injury) 05/17/2022 11:08 AM EDT [facility] UT POST VOID RESIDUAL UT POST VO ID RESIDUAL UT - OFFICE PERFORMED Routine BPH with obstruction/lower urinary tract symptoms Ordered: 09/10/2022 [facility] Comment on above: Ordered: 09/10/2022 PTH INTACT PTH INTACT Routi ne Alcoholic cirrhosis, unspecified whether ascites present ESRD (end stage renal disease) on dialysis Pre-transplant evaluation for liver transplant 10/12/2018 12:57 PM [facility] Work Phone: RUBEOLA IGG AB (IMMU NE STATUS) RUBEOLA IGG AB (IMMUNE STATUS) Routine Alcoholic cirrhosis, unspecified whether ascites present ESRD (end stage renal disease) on dialysis Pre-transplant evaluation for liver transplant 10/12/2018 12:57 PM [facility] Work Phone: End: 01-16-2024 Standard ECG ECG ECG Routine One Time for 1 Occurrences starting 01/16/2024 until 01/16/2024 [facility] Comment on above: One Time for 1 Occurrences starting 12/31 until 01/16/2024 End: 09-10-2024 TACROLIMUS LEVEL, TROUGH (PRE DRUG LEVEL) [facility] VARICELLA IGG AB (IM M STATUS) VARICELLA IGG AB (IMM STATUS) Routine Alcoholic cirrhosis, unspecified whether ascites present ESRD (end stage renal disease) on dialysis Pre-transplant evaluation for liver transplant 10/12/2018 12:57 PM [facility] Work Phone: Immunizations Immunization Date Immunization Notes Care Provider Zeeshan yi 11-01-2024 influenza virus vaccine, unspecified formulation Steph Almodovar [facility] 11-03-2023 influenza virus vaccine, unspecified formulation [facility] 11-03-2023 Influenza, injectabl e, Madin [place] Canine Kidney, preservative free, quadrivalent Generic [facility] 11-03-2023 Moderna SARS-CoV-2 50mcg/0.5mL Booster Generic [facility] 08-28-2022 influenza virus vaccine, unspecified formulation Steph Orzech [facility] 08-28-2022 influenza, injectabl e, quadrivalent, preservative free Generic Provider [facility] 09-30-2021 influenza virus vaccine, unspecified formulation Steph Orzech [facility] 09-30-2021 influenza, injectabl e, quadrivalent, preservative free Generic Provider [facility] 09-30-2021 SARS-CoV-2 (COVID-19 ) mRNA-1273 vaccine Steph Orzech [facility] 02-21-2021 SARS-CoV-2 (COVID-19 ) mRNA-1273 vaccine Steph Orzech [facility] 01-24-2021 SARS-CoV-2 (COVID-19 ) mRNA-1273 vaccine Steph Orzech [facility] 10-16-2020 influenza virus vaccine, unspecified formulation Steph Orzech [facility] 10-16-2020 influenza, injectabl e, quadrivalent, contains preservative Generic Provider [facility] Payers Date Payer Category Payer Self-pay 2019 Unknown [id number] 2019 Unknown [facility] [id number] 2019-Present [id number] 2018 Medicaid MEDICAID [facility] DEPT OF JOB xxxxxxxxxxxx 2018-Present [phone] [address] [place] [address] [id number] 2018 Medicaid MEDICAID MEDICAI D [id number] 2018-Present [address] [place] [address] [id number] 2018 Medicaid [id number] 2018 Medicare MEDICARE MEDICAR E PART A AND B xxxxxxxxxxx 2018-Present [phone] [address] [address] [place] [address] xxxxxxxxxxx [id number] .[id number] 2018 Medicare [id number] 2018 Medicare MEDICARE MEDICAR E A AND B [id number] 2018-Present [address] [place] [address] [id number] 1.2.840.302600.1.13.172.2.7.3 .[id number] 2018 Medicare [id number]. 1.13.172.2.7.3 .953003.315 1971 Unknown [id number] 2.16.840.1.555795.3.579.2.173 1971 Unknown [id number] 2.16.840.1.742302.3.579.2.173 1971 Unknown [id number] 2.16.840.1.664947.3.579.2.173 1971 Unknown [id number] 2.16.840.1.019040.3.579.2.173 1971 Unknown [id number] 2.16.840.1.234666.3.579.2.173 1971 Unknown [id number] 2.16.840.1.758984.3.579.2.173 1971 Unknown [id number] 2.16.840.1.318849.3.579.2.173 1971 Unknown [id number] 2.16.840.1.899773.3.579.2.173 1971 Unknown [id number] 2.16.840.1.878414.3.579.2.647 1971 Unknown [id number] 2.16.840.1.593695.3.579.2.593 1971 Unknown [id number] 2.16.840.1.595021.3.579.2.593 1971 Unknown [id number] 2.16.840.1.446958.3.579.2.593 1971 Unknown [id number] 2.16.840.1.245856.3.579.2.593 1971 Unknown [id number] 2.16.840.1.594068.3.579.2.593 1971 Unknown [id number] 2.16.840.1.475874.3.579.2.593 1971 Unknown [id number] 2.16.840.1.720618.3.579.2.593 1971 Unknown [id number] 2.16.840.1.500580.3.579.2.593 1971 Unknown [id number] 2.16.840.1.627107.3.579.2.593 1971 Unknown [id number] 2.16.840.1.957645.3.579.2.593 1971 Unknown [id number] 2.16.840.1.572765.3.579.2.593 1971 Unknown [id number] 2.16.840.1.457915.3.579.2.593 1971 Unknown [id number] 2.16.840.1.302365.3.579.2.593 1971 Unknown [id number] 2.16.840.1.139298.3.579.2.593 1971 Unknown [id number] 2.16.840.1.108252.3.579.2.593 1971 Unknown [id number] 2.16.840.1.567747.3.579.2.125 9 1971 Unknown [id number] 2.16.840.1.665891.3.579.2.125 9 1971 Unknown [id number] 2.16.840.1.951266.3.579.2.125 9 1971 Unknown [id number] 2.16.840.1.235928.3.579.2.125 9 1971 Unknown [id number] 2.16.840.1.147594.3.579.2.125 9 1971 Unknown [id number] 2.16.840.1.040829.3.579.2.125 9 1971 Unknown [id number] 2.16.840.1.589383.3.579.2.125 9 1971 Unknown [id number] 2.16.840.1.904813.3.579.2.125 1971 Unknown [id number] 2.16.840.1.353468.3.579.2.125 9 1971 Unknown [id number] 2.16.840.1.242325.3.579.2.125 9 1971 Unknown [id number] 2.16.840.1.515309.3.579.2.125 9 1971 Unknown [id number] 2.16.840.1.962729.3.579.2.125 9 1971 Unknown [id number] 2.16.840.1.872666.3.579.2.125 9 1971 Unknown [id number] 2.16.840.1.881070.3.579.2.125 9 1971 Unknown [id number] 2.16.840.1.877508.3.579.2.125 9 1971 Unknown [id number] 2.16.840.1.110766.3.579.2.727 1971 Unknown [id number] 2.16.840.1.763698.3.579.2.727 1971 Unknown [id number] 2.16.840.1.338494.3.579.2.594 1971 Unknown [id number] 2.16.840.1.893396.3.579.2.594 1971 Unknown [id number] 2.16.840.1.420315.3.579.2.594 1971 Unknown [id number] 2.16.840.1.861521.3.579.2.594 1971 Unknown [id number] 2.16.840.1.712667.3.579.2.594 1971 Unknown [id number] 2.16.840.1.811256.3.579.2.594 1971 Unknown [id number] 2.16.840.1.363526.3.579.2.594 1959 Medicaid [id number] 1959 Medicare [id number] Unknown [id number] 2.16.840.1.181945.3.579.2.531 Social History Date Type Detail Facility Start: 10-19-2018 End: 12-26-2024 Tobacco smoking status NHIS Former smoker [facility] Start: 07-19-1988 End: 05-14-2018 History of tobacco use Current smoker [facility] Work Phone: Start: 07-19-1988 End: 05-14-2018 History of tobacco use Cigarette Smoker [facility] Work Phone: Start: 10-19-2018 End: 10-27-2023 Cigarettes smoked current (pack per day) - Reported [facility] End: 07-19-1994 History of tobacco use Chews Tobacco [facility] Work Phone: Start: 1970 Sex Assigned At Not on file [facility] Work Phone: Start: 11-03-2018 Alcohol intake Current non-drinker of alcohol (finding) [place] Start: 06-22-2018 Alcohol Comment Hx of alcoholism [place] Start: 11-03-2018 End: 10-27-2023 Alcohol intake No [facility] Start: 07-19-2018 Tobacco use and exposure Former user [facility] Start: 09-06-2020 End: 11-07-2024 Alcohol intake Ex-drinker (finding) [facility] Start: 07-19-2018 Alcohol Comment stopped 05/14/2018 [facility] Start: 05-05-2022 End: 01-16-2023 Exposure to SARS-CoV-2 (event) Not sure [facility] Start: 07-07-2018 Gender identity Identifies as male gender (finding) [facility] Start: 01-16-2022 Sexual orientation Heterosexual (finding) [facility] Start: 11-03-2023 Tobacco use and [...] Alcohol Comment Former [facility] Start: 09-08-2024 End: 11-22-2024 Tobacco smoking status Never smoked tobacco (finding) [facility] Do you belong to any clubs or organizations such as confucianist groups, unions, fraternal or athletic groups, or school groups? Yes [facility] Are you now , , , , never or living with a partner? [facility] Start: 12-15-2024 End: 12-26-2024 Sex Male (finding) [facility] Start: 1970 Sex Assigned At Male [facility] Medical Equipment Procedure Code Equipment Code Equipment Original Text Equipment Identifier Dates [id number] Start: 05-23-2020 [id number] Start: 04-12-2020 [id number], [id number] FDA Start: 05-17-2022 Comment on above: Description: Implant time-out completed by intra-procedural staff including this RN, site damage prevention technician, and performing physician. The following was completed. RN reads out loud implant type/size/ expiration date, and verbalizes location. Holds package up to tech to visually verify implant details. Tech reads back package details MD verifies verbally correct implant Time-out was completed for each coil during embolization, if applicable. mg EA, Oral, Refills(s) 0 Start: 09-08-2024 mg EA, Oral, Refills(s) 0 Start: 09-08-2024 Goals Date Patient Goal Desired Activity /State Personal health goal Functional Status Date Assessment Result Facility 11-22-2024 Functional Status N/A [facility] 09-08-2024 Functional Status N/A [facility] Clinical Notes 06-14-2021 to 12-26-2024 Note Date & Type Note Facility 12-26-2024 Procedure note [facility] 12-15-2024 Evaluation note Authored December 15, 2024 9:35am 54-year-old man with a histo ry of liver and kidney transplant in 2019 referred to the GI clinic for evaluation of heartburn and constipation. +chronic heartburn which is controlled with Pepcid. +constipation started a year ago, he reports 1 bowel movement every other day if he takes MiraLAX. Will arrange for colonoscopy to evaluate change in bowel habits. Will arrange for EGD to assess for Forrester's. Patient was recommended to avoid dehydration, add Miralax 17gm PO Qday and titrate up to twice or three times daily if needed. [facility] Work Phone: 1(202) 969-501012-24-2024 Hospital Discharge instructions Patient Education 11/22/2024 09:57:55 Cancer Screening for Males Cancer Screening for Males A cancer screening is a test or exam that checks for cancer. Work with your health care provider tocreate a cancer screening schedule that protects your health. Who should have screening? All people who are male should be considered for screening of certain cancers, including colorectalcancer, prostate cancer, lung cancer, and skin cancer. Your health care provider may recommend screenings for other types of cancer if: You have had cancer before. You have a family member with cancer. You have genes that could increase the risk of cancer. You have risk factors for certain cancers, such as current or past use of tobacco products or beingoverweight. What are the benefits of screening? Cancer screening is done to look for cancer in the very early stages, before it spreads and becomesharder to treat and before you would start to notice symptoms. Finding cancer early improves the chances of successful treatment. It may save your life. When should I be screened for cancer? When you should be screened for cancer depends on: Your age. Your medical history and your family's medical history. Certain lifestyle factors, such as smoking or other use of tobacco products. Environmental exposure, such as to asbestos. How is screening done? Colorectal cancer Colorectal cancer screening looks for cancer or for growths called polyps that often form before cancer starts. Tests to look for cancer or polyps include: Colonoscopy or flexible sigmoidoscopy. For these procedures, a flexible tube with a small camera isinserted into the rectum. CT colonography. This test uses X-rays and a contrast dye to check the colon for polyps. Tests to look for cancer in the stool (feces) include: Guaiac-based fecal occult blood test (FOBT). This test can find blood in stool. It can be done at home with a kit. Fecal immunochemical test (FIT). This test can find blood in stool. For this test, you will need tocollect stool samples at home. Stool DNA test. This test looks for blood in stool and any changes in DNA that can lead to colon cancer. For this test, you will need to collect a stool sample at home and send it to a lab. All adults should have screenings starting at 45 years old and continuing through 75 years old. Formales 76 85 years old, the decision to be screened should be based on a person's preferences, life expectancy, overall health, and prior screening history. Your health care provider may recommend screening before 45 years old. You will have tests every 1 10 years, depending on your results and the type of screening test. People at increased risk should start screening at an earlier age. Talk withyour health care provider about which screening test is right for you and how often you should be screened. Prostate cancer Prostate cancer screening is done with blood tests and a digital rectal exam. During this exam, a health care provider uses a gloved finger to check prostate size. You may need to be screened for prostate cancer if: You have risk factors for prostate cancer, such as being an person or having a close family member with prostate cancer. You have had gene changes or a genetic condition that was passed on to you from a parent (inherited). These gene changes or genetic conditions include BRCA1 or BRCA2 gene mutations or Nayak syndrome. You have symptoms of prostate cancer, such as problems urinating or problems getting or keeping an erection (erectile dysfunction). When you have been screened for prostate cancer, future screening may be recommended based on the results of your blood tests. Prostate cancer screening for males with average risk may start at 50 years old. Males with risk factors may need to be screened earlier, at 40 45 years old. Talk with your health care provider aboutwhether screening is right for you and, if so, how often you should be screened. Lung cancer Lung cancer screening is done with a CT scan that looks for abnormal changes in the lungs. Discuss lung cancer screening with your health care provider if you are 50 80 years old and if any of the following apply to you: You currently smoke. You used to smoke heavily. You have a smoking history of 1 pack of cigarettes a day for 20 years or 2 packs a day for 10 years. You may need to be screened every year if you smoke heavily or if you used to smoke. Skin cancer Skin cancer screening is done by checking the skin for unusual moles or spots and any changes in existing moles. Your health care provider should check your skin for signs of skin cancer at every physical exam. You should check your skin every month and tell your health care provider right away if anything looks unusual. Males with a libchp-foqm-xghjke risk for skin cancer may want to see a parking enforcement specialist (shafting cleaner) for an annual body check. Where to find more information [place] [employer]: cancer.org Centers for Disease Control and Prevention: cdc.gov National Cancer [place]: cancer.gov Contact a health care provider if: You have concerns about any signs or symptoms of cancer. These may include: ?Skin problems. You may have: ?Moles of an unusual shape or color. ?Changes in existing moles. ?A sore on your skin that does not heal. ?Tiredness (fatigue) that does not go away. ?Losing weight without trying. ?Blood in your urine or stool. ?Problems with urination. You may have: ?Changes in urination habits. ?Painful urination. ?Painful ejaculation. ?Problems with coughing or breathing. These may include: ?Coughing or trouble breathing that does not go away. ?Coughing up blood. ?Frequent pain or cramping in your abdomen. This information is not intended to replace advice given to you by your health care provider. Make sure you discuss any questions you have with your health care provider. Document Revised: 11/24/2023 Document Reviewed: 06/08/2023 [employer] Patient Education 2023 [employer]. 11/22/2024 09:57:51 Erectile Dysfunction Erectile Dysfunction Erectile dysfunction (ED) is the inability to get or keep an erection in order to have sexual intercourse. ED is considered a symptom of an underlying disorder and is not considered a disease. ED mayinclude: Inability to get an erection. Lack of enough hardness of the erection to allow penetration. Loss of erection before sex is finished. What are the causes? This condition may be caused by: Physical causes, such as: ?Artery problems. This may include heart disease, high blood pressure, atherosclerosis, and diabetes. ?Hormonal problems, such as low testosterone. ?Obesity. ?Nerve problems. This may include back or pelvic injuries, multiple sclerosis, Parkinson's disease,spinal cord injury, and stroke. Certain medicines, such as: ?Pain relievers. ?Antidepressants. ?Blood pressure medicines and water pills (diuretics). ?Cancer medicines. ?Antihistamines. ?Muscle relaxants. Lifestyle factors, such as: ?Use of drugs such as marijuana, cocaine, or opioids. ?Excessive use of alcohol. ?Smoking. ?Lack of physical activity or exercise. Psychological causes, such as: ?Anxiety or stress. ?Sadness or depression. ?Exhaustion. ?Fear about sexual performance. ?Guilt. What are the signs or symptoms? Symptoms of this condition include: Inability to get an erection. Lack of enough hardness of the erection to allow penetration. Loss of the erection before sex is finished. Sometimes having normal erections, but with frequent unsatisfactory episodes. Low sexual satisfaction in either partner due to erection problems. A curved penis occurring with erection. The curve may cause pain, or the penis may be too curved toallow for intercourse. Never having nighttime or morning erections. How is this diagnosed? This condition is often diagnosed by: Performing a physical exam to find other diseases or specific problems with the penis. Asking you detailed questions about the problem. Doing tests, such as: ?Blood tests to check for diabetes mellitus or high cholesterol, or to measure hormone levels. ?Other tests to check for underlying health conditions. ?An ultrasound exam to check for scarring. ?A test to check blood flow to the penis. Doing a sleep study at home to measure nighttime erections. How is this treated? This condition may be treated by: Medicines, such as: ?Medicine taken by mouth to help you achieve an erection (oral medicine). ?Hormone replacement therapy to replace low testosterone levels. ?Medicine that is injected into the penis. Your health care provider may instruct you how to give yourself these injections at home. ?Medicine that is delivered with a short applicator tube. The tube is inserted into the opening at the tip of the penis, which is the opening of the urethra. A tiny pellet of medicine is put in the urethra. The pellet dissolves and enhances erectile function. This is also called MUSE (medicated urethral system for erections) therapy. Vacuum pump. This is a pump with a ring on it. The pump and ring are placed on the penis and used to create pressure that helps the penis become erect. Penile implant surgery. In this procedure, you may receive: ?An inflatable implant. This consists of cylinders, a pump, and a reservoir. The cylinders can be inflated with a fluid that helps to create an erection, and they can be deflated after intercourse. ?A semi-rigid implant. This consists of two silicone rubber rods. The rods provide some rigidity. They are also flexible, so the penis can both curve downward in its normal position and become straight for sexual intercourse. Blood vessel surgery to improve blood flow to the penis. During this procedure, a blood vessel froma different part of the body is placed into the penis to allow blood to flow around (bypass) damaged or blocked blood vessels. Lifestyle changes, such as exercising more, losing weight, and quitting smoking. Follow these instructions at home: Medicines Take eltb-fiu-omvsrmh and prescription medicines only as told by your health care provider. Do not increase the dosage without first discussing it with your health care provider. If you are using self-injections, do injections as directed by your health care provider. Make sureyou avoid any veins that are on the surface of the penis. After giving an injection, apply pressureto the injection site for 5 minutes. Talk to your health care provider about how to prevent headaches while taking ED medicines. These medicines may cause a sudden headache due to the increase in blood flow in your body. General instructions Exercise regularly, as directed by your health care provider. Work with your health care provider to lose weight, if needed. Do not use any products that contain nicotine or tobacco. These products include cigarettes, chewing tobacco, and vaping devices, such as e-cigarettes. If you need help quitting, ask your health careprovider. Before using a vacuum pump, read the instructions that come with the pump and discuss any questionswith your health care provider. Keep all follow-up visits. This is important. Contact a health care provider if: You feel nauseous. You are vomiting. You get sudden headaches while taking ED medicines. You have any concerns about your sexual health. Get help right away if: You are taking oral or injectable medicines and you have an erection that lasts longer than 4 hours. If your health care provider is unavailable, go to the nearest emergency room for evaluation. An erection that lasts much longer than 4 hours can result in permanent damage to your penis. You have severe pain in your groin or abdomen. You develop redness or severe swelling of your penis. You have redness spreading at your groin or lower abdomen. You are unable to urinate. You experience chest pain or a rapid heartbeat (palpitations) after taking oral medicines. These symptoms may represent a serious problem that is an emergency. Do not wait to see if the symptoms will go away. Get medical help right away. Call your local emergency services (911 in the [place] Do not drive yourself to the hospital. Summary Erectile dysfunction (ED) is the inability to get or keep an erection during sexual intercourse. This condition is diagnosed based on a physical exam, your symptoms, and tests to determine the cause. Treatment varies depending on the cause and may include medicines, hormone therapy, surgery, or a vacuum pump. You may need follow-up visits to make sure that you are using your medicines or devices correctly. Get help right away if you are taking or injecting medicines and you have an erection that lasts longer than 4 hours. This information is not intended to replace advice given to you by your health care provider. Make sure you discuss any questions you have with your health care provider. Document Revised: 02/12/2022 Document Reviewed: 02/12/2022 [employer] Patient Education 2023 [employer]. 11/22/2024 09:57:50 Benign Prostatic Hyperplasia Benign Prostatic Hyperplasia Benign prostatic hyperplasia (BPH) is an enlarged prostate gland that is caused by the normal agingprocess. The prostate may get bigger as a man gets older. The condition is not caused by cancer. The prostate is a walnut-sized gland that is involved in the production of semen. It is located in front of the rectum and below the bladder. The bladder stores urine. The urethra carries stored urine ou t of the body. An enlarged prostate can press on the urethra. This can make it harder to pass urine. The buildup of urine in the bladder can cause infection. Back pressure and infection may progress to bladder damage and kidney (renal) failure. What are the causes? This condition is part of the normal aging process. However, not all men develop problems from thiscondition. If the prostate enlarges away from the [...] urethra. Follow these instructions at home: Take dikd-fvv-lqqqold and prescription medicines only as told by [...] provider. Document Revised: 06/04/2022 Document Reviewed: 06/04/2022 [employer] Patient Education 2023 [employer]. Follow Up Care 09/08/2024 14:18:18 With:Clementina James, URL Address: When: Unknown Comments:4 mos [facility] 12-24-2024 NotePatient Education Oncology Cancer Screening for Males A cancer screening is a test or exam that checks for cancer. Work with your health care provider tocreate a cancer screening schedule that protects your health. Who should have screening? All people who are male should be considered for screening of certain cancers, including colorectalcancer, prostate cancer, lung cancer, and skin cancer. Your health care provider may recommend screenings for other types of cancer if: ??? You have had cancer before. ??? You have a family member with cancer. ??? You have genes that could increase the risk of cancer. ??? You have risk factors for certain cancers, such as current or past use of tobacco products or being overweight. What are the benefits of screening? Cancer screening is done to look for cancer in the very early stages, before it spreads and becomesharder to treat and before you would start to notice symptoms. Finding cancer early improves the chances of successful treatment. It may save your life. When should I be screened for cancer? When you should be screened for cancer depends on: ??? Your age. ??? Your medical history and your family's medical history. ??? Certain lifestyle factors, such as smoking or other use of tobacco products. ??? Environmental exposure, such as to asbestos. How is screening done? Colorectal cancer Colorectal cancer screening looks for cancer or for growths called polyps that often form before cancer starts. Tests to look for cancer or polyps include: ??? Colonoscopy or flexible sigmoidoscopy. For these procedures, a flexible tube with a small camera is inserted into the rectum. ??? CT colonography. This test uses X-rays and a contrast dye to check the colon for polyps. Tests to look for cancer in the stool (feces) include: ??? Guaiac-based fecal occult blood test (FOBT). This test can find blood in stool. It can be done at home with a kit. ??? Fecal immunochemical test (FIT). This test can find blood in stool. For this test, you will need to collect stool samples at home. ??? Stool DNA test. This test looks for blood in stool and any changes in DNA that can lead to colon cancer. For this test, you will need to collect a stool sample at home and send it to a lab. All adults should have screenings starting at 45 years old and continuing through 75 years old. Formales 76?85 years old, the decision to be screened should be based on a person's preferences, life expectancy, overall health, and prior screening history. Your health care provider may recommend screening before 45 years old. You will have tests every 1?10 years, depending on your results and the type of screening test. People at increased risk should start screening at an earlier age. Talk withyour health care provider about which screening test is right for you and how often you should be screened. Prostate cancer Prostate cancer screening is done with blood tests and a digital rectal exam. During this exam, a health care provider uses a gloved finger to check prostate size. You may need to be screened for prostate cancer if: ??? You have risk factors for prostate cancer, such as being an person or having aclose family member with prostate cancer. ??? You have had gene changes or a genetic condition that was passed on to you from a parent (inherited). These gene changes or genetic conditions include BRCA1 or BRCA2 gene mutations or Nayak syndrome. ??? You have symptoms of prostate cancer, such as problems urinating or problems getting or keepingan erection (erectile dysfunction). When you have been screened for prostate cancer, future screening may be recommended based on the results of your blood tests. Prostate cancer screening for males with average risk may start at 50 years old. Males with risk factors may need to be screened earlier, at 40?45 years old. Talk with your health care provider aboutwhether screening is right for you and, if so, how often you should be screened. Lung cancer Lung cancer screening is done with a CT scan that looks for abnormal changes in the lungs. Discuss lung cancer screening with your health care provider if you are 50?80 years old and if any of the following apply to you: ??? You currently smoke. ??? You used to smoke heavily. ??? You have a smoking history of 1 pack of cigarettes a day for 20 years or 2 packs a day for 10 years. You may need to be screened every year if you smoke heavily or if you used to smoke. Skin cancer Skin cancer screening is done by checking the skin for unusual moles or spots and any changes in existing moles. Your health care provider should check your skin for signs of skin cancer at every physical exam. You should check your skin every month and tell your health care provider right away if anything looks unusual. Males with a [id number] risk for skin cancer may want to see a parking enforcement specialist (dermatologi (more content not included)...[facility]12-09-2024 History of Present illness Narrative* Zuly Bruno NP - 11/07/2024 2:56 PM ESTAssociated Problem(s): Kidney stones Would caution use of calcium d/t this * Zuly Bruno NP - 11/07/2024 2:54 PM ESTAssociated Problem(s): Other osteoporosis without current pathological fracture (CMS/HCC) DEXA scan is -2.5 osteoprosis Letter sent (10/13/24)to [facility] regarding best therapy for this, no response as of yet * Zuly Bruno NP - 11/07/2024 2:53 PM ESTAssociated Problem(s): Immunodeficiency, unspecified (CMS/HCC) Double transplant at [facility] over 2 years ago (liver and kidney) Histoplasmosis dx in 08/22, continue to follow with ID Also sees transplant team yearly * Zuly Bruno NP - 11/07/2024 2:20 PM EST Images from the original note were not included. George Styles is a 54 y.o. male presents with chief complaint of Hypertension HPI: S/p renal and liver transplant: 2019 Follow with [facility] transplant team, check labs, tacrolimus dose increased since last visit, d/t comingoff anti fungal. Also has had flu and covid vaccines. Hypertension This is a chronic problem. The current episode started more than 1 year ago. The problem is unchanged. The problem is controlled. Pertinent negatives include no blurred vision, chest pain, peripheraledema or shortness of breath. There are no associated agents to hypertension. Risk factors for coronary artery disease include obesity, male gender and sedentary lifestyle. Past treatments include calcium channel blockers. The current treatment provides significant improvement. There are no compliance problems. SUBJECTIVE: MEDICATIONS: Current Outpatient Medications Medication Instructions allopurinol (Zyloprim) 100 MG tablet 2 tablets, Daily RT amLODIPine (NORVASC) 5 mg, Oral, Daily aspirin 81 MG chewable tablet 1 tablet, Daily famotidine (PEPCID) 20 mg, Oral, 2 times daily gabapentin (NEURONTIN) 400 mg, Oral, Nightly melatonin 3 mg, Nightly mycophenolate (Myfortic) 360 MG EC tablet 1 tablet, Every 12 hours ondansetron (Zofran) 4 MG tablet 1 tablet, Every 8 hours PRN polyethylene glycol (PEG) 3350 (GLYCOLAX) 17 g, Daily RT Prograf 0.2 MG pack sulfamethoxazole-trimethoprim (Bactrim DS) 800-160 MG per tablet 1 tablet, 3 times weekly tacrolimus (PROGRAF) 0.2 mg, Daily tamsulosin (FLOMAX) 0.4 mg, Oral, Every evening torsemide (DEMADEX) 20 mg, Daily RT ALLERGIES: Allergies Allergen Reactions Shellfish-Derived Products Swelling Patient with lip and tongue swelling. REVIEW OF SYMPTOMS: Review of Systems Constitutional: Negative for activity change, appetite change and unexpected weight change. HENT: Negative for ear pain, nosebleeds, sneezing, trouble swallowing and voice change. Eyes: Negative for blurred vision, pain, discharge and visual disturbance. Respiratory: Negative for apnea, chest tightness, shortness of breath and wheezing. Cardiovascular: Negative for chest pain and leg swelling. Gastrointestinal: Negative for abdominal distention, blood in stool, constipation and diarrhea. Genitourinary: Negative for decreased urine volume, difficulty urinating, dysuria and hematuria. Skin: Negative for color change. Neurological: Negative for dizziness, tremors and seizures. Psychiatric/Behavioral: Negative for agitation, decreased concentration, hallucinations, self-injury and suicidal ideas. The patient is not nervous/anxious. Hematological: Negative for adenopathy. Does not bruise/bleed easily. Endocrine: Negative for cold intolerance, heat intolerance, polydipsia and polyuria. Allergic/Immunologic: Negative for environmental allergies and food allergies. 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 Noticed first 6 months ago. Increasing in size and now with intermittent pain. Multiple surgical scars in midline - vertical and horizontal from Liver and renal transplant. Swelling/hernia -small in epigastric region -painful to touch, soft to touch. no overlying skin changes. Insomnia Kidney stones 11/03/2023 Left carotid bruit 02/11/2024 Obesity (BMI 30-39.9) Organ transplant 11/03/2023 Kidney and liver DARLENE (obstructive sleep apnea) 11/03/2023 Pancreatitis 02/11/2024 Peripheral neuropathy 12/03/2023 Portal hypertension (CMS/HCC) 02/11/2024 Right nephrolithiasis 02/11/2024 S/P liver transplant ([facility]) Takes dietary supplements Tremor 11/03/2023 Umbilical hernia 02/11/2024 Past Surgical History: Procedure Laterality Date AV FISTULA PLACEMENT Left 06/2018 LUE FL GUIDED ABDOMINAL PARACENTESIS 05/16/2018 FL GUIDED ABDOMINAL PARACENTESIS FL GUIDED ABDOMINAL PARACENTESIS 05/18/2018 FL GUIDED ABDOMINAL PARACENTESIS IR INJECTION NERVE BLOCK 01/22/2024 IR INJECTION NERVE BLOCK KIDNEY SURGERY Right 04/13/2020 LIVER TRANSPLANTATION 04/13/2020 MR ANGIOGRAM HEAD WO IV CONTRAST 05/17/2018 MR ANGIOGRAM HEAD WO IV CONTRAST ORIF ANKLE FRACTURE Right family history includes Diabetes in his brother, father, mother, and another family member; Heart disease in an other family member; Hyperlipidemia in an other family member; Hypertension in an otherfamily member; Stroke in his father, mother, and another family member. OBJECTIVE: Visit Vitals BP 128/86 (BP Location: Left arm, Patient Position: Sitting, BP Cuff Size: Adult long) Pulse 63 Temp 98.2 F (Temporal) Resp 18 Ht 5' 7 Wt 203 lb 3.2 oz SpO2 96% BMI 31.83 kg/m Smoking Status Former BSA 2.09 m Physical Exam Vitals and nursing note reviewed. Constitutional: Appearance: Normal appearance. HENT: Head: Normocephalic. Right Ear: External ear normal. Left Ear: External ear normal. Nose: Nose normal. Mouth/Throat: Mouth: Mucous membranes are moist. Pharynx: Oropharynx is clear. Eyes: Extraocular Movements: Extraocular movements intact. Conjunctiva/sclera: Conjunctivae normal. Neck: Vascular: No carotid bruit. Cardiovascular: Rate and Rhythm: Normal rate and regular rhythm. Pulses: Normal pulses. Heart sounds: Normal heart sounds. Pulmonary: Effort: Pulmonary effort is normal. Breath sounds: Normal breath sounds. No wheezing. Abdominal: General: Bowel sounds are normal. There is no distension. Palpations: Abdomen is soft. There is no mass. Tenderness: There is no abdominal tenderness. Hernia: A hernia is present. Musculoskeletal: Cervical back: Neck supple. Right lower leg: No edema. Left lower leg: No edema. Lymphadenopathy: Cervical: No cervical adenopathy. Skin: General: Skin is warm and dry. Capillary Refill: Capillary refill takes 2 to 3 seconds. Neurological: General: No focal deficit present. Mental Status: He is alert. Psychiatric: Mood and Affect: Mood normal. Behavior: Behavior normal. Thought Content: Thought content normal. Judgment: Judgment normal. ASSESSMENT AND PLAN: No follow-ups on file. Problem List Items Addressed This Visit Obesity (BMI 30-39.9) Discussed with patient their BMI (actual, verses recommended). We have also discussed lifestyle modifications: attempts to perform physical activity as chronic conditions allow, also to monitor dietary intake: increasing protein/fruits/veggies and lowering carb intake (unless contraindicated). Limit sodas, juices, and sugary drinks. 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, continue to follow with ID Also sees transplant team yearly Hypertension (CMS/HCC) - Primary Please check blood pressure daily and record DASH diet Limit caffeine Take medication as directed Contact office if chest pain, pressure, dizziness, shortness of breath, swelling legs Recommend slow position changes Current meds: amlodipine, Portal hypertension (CMS/HCC) Stable, continues w hepatology Other osteoporosis without current pathological fracture (CMS/HCC) DEXA scan is -2.5 osteoprosis Letter sent (10/13/24)to [facility] regarding best therapy for this, no response as of yet * Zuly Bruno NP - 11/07/2024 7:10 AM ESTAssociated Problem(s): Obesity (BMI 30-39.9) Discussed with patient their BMI (actual, verses recommended). We have also discussed lifestyle modifications: attempts to perform physical activity as chronic conditions allow, also to monitor dietary intake: increasing protein/fruits/veggies and lowering carb intake (unless contraindicated). Limit sodas, juices, and sugary drinks. Goal of 10 pounds weight loss by next visit * Zuly Bruno NP - 11/07/2024 7:10 AM ESTAssociated Problem(s): Hypertension (CMS/HCC) Please check blood pressure daily and record DASH diet Limit caffeine Take medication as directed Contact office if chest pain, pressure, dizziness, shortness of breath, swelling legs Recommend slow position changes Current meds: amlodipine, * Zuly Bruno NP - 11/07/2024 7:09 AM ESTAssociated Problem(s): Portal hypertension (CMS/HCC) Stable, continues w hepatology documented in this [facility]12-09-2024 Instructions* Patient Instructions* Zuly Bruno NP - 11/07/2024 2:20 PM EST No medication dose changes Recommend cutting back on snacking, goal for 10 pounds weight loss by next visit Exercise as tolerated, most days of the week for approx 30 minutes, treadmill is great option Will reach out again to transplant team about options for osteoporosis documented in this [facility]12-02-2024 History of Present illness Narrative* Gopi Noyola - 10/31/2024 12:18 PM EST [facility]: Shipping/Pickup: Patient has affirmed needing a refill of the following medications for Shipment (11/01) : Med Name: Mycophenolate 360mg Med Name: Tacrolimus 0.5mg Contact Info: Specialty ([place]) [phone] Jakob [phone] [facility] [phone] David [phone] Bedside Delivery ([facility]) [phone] [facility] Discharge instructions Patient Education 09/08/2024 14:31:14 Benign Prostatic Hyperplasia Benign Prostatic Hyperplasia Benign prostatic hyperplasia (BPH) is an enlarged prostate gland that is caused by the normal agingprocess. The prostate may get bigger as a man gets older. The condition is not caused by cancer. The prostate is a walnut-sized gland that is involved in the production of semen. It is located in front of the rectum and below the bladder. The bladder stores urine. The urethra carries stored urine ou t of the body. An enlarged prostate can press on the urethra. This can make it harder to pass urine. The buildup of urine in the bladder can cause infection. Back pressure and infection may progress to bladder damage and kidney (renal) failure. What are the causes? This condition is part of the normal aging process. However, not all men develop problems from thiscondition. If the prostate enlarges away from the [...] urethra. Follow these instructions at home: Take [id number] and prescription medicines only as told by [...] provider. Document Revised: 06/04/2022 Document Reviewed: 06/04/2022 [employer] Patient Education 2023 [employer]. Follow Up Care 08/25/2024 09:38:26 With:Clementina James, URL Address: When:3 months Comments:med increase [facility] 10-10-2024 NoteUrology Office/Clinic Note Chief Complaint referral- decrease of urine [...] Skin: No rashes or suspicious lesions Assessment/Plan [employer] referred by Zuly Bruno NP for weak [...] stream started. Pt has some urgency throughout theday but always has weak stream. He reports [...] E&M of New Patient Moderate 45-59 Min 56416 2. Screening PSA (prostate specific antigen) (Z12.5: Encounter for screening for malignant neoplasmof prostate) No PSA records on file -Will discuss with patient at his follow up Ordered: E&M of New Patient Moderate 45-59 Min 11066 3. History of kidney transplant (Z94.0: Kidney transplant status) 08/29/24 - BUN 18, Cre 1.3, GFR 58 Pt had liver and kidney transplant in 2020 and follows yearly with [facility]. Ordered: E&M of New Patient Moderate 45-59 Min 76012 Orders: tamsulosin, 0.4 mg = 1 cap(s), Oral, BID, X 30 day(s), # 60 cap(s), Refills(s) 11, Pharmacy: No [id number], 170, cm, 09/08/24 14:00:00 EDT, Height/Length Dosing, 90, kg, 09/08/24 14:00:00 EDT, Weight Dosing 84963 Measure Post Void residual urine and/or bladder capacity by US- non-imaging Urnls Dip Stick Auto w/o Microscopy POC 58632 Follow-up With When Contact Information [place], [...] Glucose Urine Dipstick: Negative (more content not included)...[facility] CenterComment on [facility]:Result Comment: Electronically Signed By: Clementina James.shantanu\Date and Time Signed: 09/08/24 14:33 [id number] Note Patient Education Urology Benign Prostatic Hyperplasia Benign prostatic hyperplasia (BPH) is an enlarged prostate gland that is caused by the normal agingprocess. The prostate may get bigger as a man gets older. The condition is not caused by cancer. The prostate is a walnut-sized gland that is involved in the production of semen. It is located in front of the rectum and below the bladder. The bladder stores urine. The urethra carries stored urine ou t of the body. An enlarged prostate can press on the urethra. This can make it harder to pass urine. The buildup of urine in the bladder can cause infection. Back pressure and infection may progress to bladder damage and kidney (renal) failure. What are the causes? This condition is part of the normal aging process. However, not all men develop problems from thiscondition. If the prostate enlarges away from the [...] urine that may remain in your bladder afteryou finish urinating. ? A digital rectal exam. [...] this procedure, a tool is inserted through theopening at the tip of the penis (urethra). [...] procedure uses radio frequencies to destroy and removea small amount of prostate tissue. ? Interstitial laser coagulation (ILC). This procedure uses a laser to destroy and remove a small amount of prostate tissue. ? Transurethral electrovaporization (TUVP). This procedure uses electrodes to destroy and remove a small amount of prostate tissue. ? Prostatic urethral lift. This procedure inserts an implant to push the lobes of the prostate awayfrom the urethra. Follow these instructions at home: ? Take asuq-wgo-hgoisby and prescription medicines only as told by [...] You develop side effec (more content not included)...[facility]10-07-2024 History of Present illness Narrative* Starla Edwards - 09/05/2024 3:24 PM EDT [facility]: Call Information: Date and Time of Contact: 09/05/2024 3:24 PM Method of Contact: By Phone Contact Type: Prescriptions Contactor: Patient Contactee: [facility] OP Shipping/Pickup: Medicare B Refill?: No Medication Name: Mycophenolate, prograf Delivery Method: Ship Delivery Location: Home Signature Required: No Receive/Pickup Date: 09/06/2024 Shipping Address: [address] [place] [address] Contact Info: Specialty ([place]) [phone] [facility] [phone] [facility] [phone] David [phone] Bedside Delivery ([facility]) [phone] [facility] History of Present illness Narrative* Zuly Bruno NP - 08/23/2024 9:29 AM EDTAssociated Problem(s): Bilateral lower extremity edema Stable, cont with torsemide * Zuly Bruno NP - 08/23/2024 9:29 AM EDTAssociated Problem(s): Gastroesophageal reflux disease Continue with use of H2 melissa Will refer to GI * Zuly Bruno NP - 08/23/2024 9:29 AM EDTAssociated Problem(s): Left carotid bruit Will order updated US , cont statin * Zuly Bruno NP - 08/23/2024 9:28 AM EDTAssociated Problem(s): DARLENE (obstructive sleep apnea) Compliant with PAP * Zuly Bruno NP - 08/23/2024 9:28 AM EDTAssociated Problem(s): Dysuria Check urine and culture * Zuly Brnuo NP - 08/23/2024 9:28 AM EDTAssociated Problem(s): Abdominal pain, generalized Reviewed labs and MRI report Will refer to GI as well * Zuly Bruno NP - 08/23/2024 8:56 AM EDTAssociated Problem(s): Portal hypertension (CMS/HCC) Stable, continues w hepatology * Zuly Bruno NP - 08/23/2024 8:55 AM EDTAssociated Problem(s): Hypertension (CMS/HCC) At goal , no med dose changes * CARI SONG - 08/23/2024 8:40 AM EDT Lower back pain and abdomin pain- in the last month or so. Pt states that he does have a hard time having a BM here and there. He has noticed weight gain and was afraid of retaining fluid-he has taken an extra water pill at times. Pt needs a refill on his pepcid * Zulytray Bruno, BA - 08/23/2024 8:40 AM EDT Images from the original note were not included. George Styles is a 54 y.o. male presents with chief complaint of No chief complaint on file. HPI: having Hypertension This is a chronic problem. The current episode started more than 1 year ago. The problem is unchanged. The problem is controlled. Pertinent negatives include no anxiety, chest pain, headaches, palpitations, peripheral edema (better in the morning, worse as the day goes on) or shortness of breath. There are no associated agents to hypertension. Risk factors for coronary artery disease include obesity, male gender and sedentary lifestyle. Past treatments include calcium channel blockers. The current treatment provides significant improvement. There are no compliance problems. Back Pain This is a new (3 week) problem. The current episode started 1 to 4 weeks ago. The problem occurs constantly. The pain is present in the lumbar spine. Quality: sharp. The pain does not radiate. The pain is at a severity of 6/10. The pain is moderate. The symptoms are aggravated by position. Associated symptoms include abdominal pain. Pertinent negatives include no bladder incontinence, bowel incontinence, chest pain, dysuria, fever, headaches, numbness or paresthesias. Abdominal Pain This is a new (4 weeks) problem. The onset quality is sudden. The problem occurs daily. The pain islocated in the LUQ and RUQ. The quality of the pain is cramping and aching (around the scar tissue area, and also has a hernia may be that too). The abdominal pain does not radiate. Associated symptoms include constipation. Pertinent negatives include no diarrhea, dysuria, fever, headaches, hematochezia, hematuria, nausea or vomiting. Exacerbated by: eating. The pain is relieved by Nothing. He has tried H2 blockers for the symptoms. Prior workup: MRI abd. SUBJECTIVE: MEDICATIONS: Current Outpatient Medications Medication Instructions allopurinol (Zyloprim) 100 MG tablet 2 tablets, Oral, Daily RT amLODIPine (NORVASC) 5 mg, Oral, Daily aspirin 81 MG chewable tablet 1 tablet, Oral, Daily famotidine (PEPCID) 20 mg, Oral, 2 times daily gabapentin (NEURONTIN) 400 mg, Oral, Nightly itraconazole (Sporanox) 10 MG/ML solution 10 mL, Oral, 2 times daily melatonin 3 MG tablet 1 tablet, Oral, Nightly mycophenolate (Myfortic) 360 MG EC tablet 1 tablet, Oral, Every 12 hours ondansetron (Zofran) 4 MG tablet 1 tablet, Oral, Every 8 hours PRN polyethylene glycol (PEG) 3350 (GLYCOLAX) 17 g, Oral, Daily RT sulfamethoxazole-trimethoprim (Bactrim DS) 800-160 MG per tablet 1 tablet, Oral, 3 times weekly tacrolimus (PROGRAF) 0.2 mg, Oral, Daily, 5 days a week (Thursday-Thursday) tamsulosin (FLOMAX) 0.4 mg, Oral, Nightly torsemide (DEMADEX) 20 mg, Oral, Daily RT ALLERGIES: Allergies Allergen Reactions Shellfish-Derived Products Swelling Patient with lip and tongue swelling. REVIEW OF SYMPTOMS: Review of Systems Constitutional: Negative for activity change, appetite change, fever and unexpected weight change. HENT: Negative for ear pain, nosebleeds, sneezing, trouble swallowing and voice change. Eyes: Negative for pain, discharge and visual disturbance. Respiratory: Negative for apnea, chest tightness, shortness of breath and wheezing. Cardiovascular: Negative for chest pain, palpitations and leg swelling. Gastrointestinal: Positive for abdominal pain and constipation. Negative for abdominal distention, blood in stool, bowel incontinence, diarrhea, hematochezia, nausea and vomiting. Genitourinary: Negative for bladder incontinence, decreased urine volume, difficulty urinating, dysuria and hematuria. Musculoskeletal: Positive for back pain. Skin: Negative for color change. Neurological: Negative for dizziness, tremors, seizures, numbness, headaches and paresthesias. Psychiatric/Behavioral: Negative for agitation, decreased concentration, hallucinations, self-injury and suicidal ideas. The patient is not nervous/anxious. Hematological: Negative for adenopathy. Does not bruise/bleed easily. Endocrine: Negative for cold intolerance, heat intolerance, polydipsia and polyuria. Allergic/Immunologic: Negative for environmental allergies and food allergies. 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 Noticed first 6 months ago. Increasing in size and now with intermittent pain. Multiple surgical scars in midline - vertical and horizontal from Liver and renal transplant. Swelling/hernia -small in epigastric region -painful to touch, soft to touch. no overlying skin changes. Insomnia Kidney stones 11/03/2023 Left carotid bruit 02/11/2024 Obesity (BMI 30-39.9) Organ transplant 11/03/2023 Kidney and liver DARLENE (obstructive sleep apnea) 11/03/2023 Pancreatitis 02/11/2024 Peripheral neuropathy 12/03/2023 Portal hypertension (CMS/HCC) 02/11/2024 Right nephrolithiasis 02/11/2024 S/P liver transplant ([facility]/HCC) Takes dietary supplements Tremor 11/03/2023 Umbilical hernia 02/11/2024 Past Surgical History: Procedure Laterality Date AV FISTULA PLACEMENT Left 06/2018 LUE FL GUIDED ABDOMINAL PARACENTESIS 05/16/2018 FL GUIDED ABDOMINAL PARACENTESIS FL GUIDED ABDOMINAL PARACENTESIS 05/18/2018 FL GUIDED ABDOMINAL PARACENTESIS IR INJECTION NERVE BLOCK 01/22/2024 IR INJECTION NERVE BLOCK KIDNEY SURGERY Right 04/13/2020 LIVER TRANSPLANTATION 04/13/2020 MR ANGIOGRAM HEAD WO IV CONTRAST 05/17/2018 MR ANGIOGRAM HEAD WO IV CONTRAST ORIF ANKLE FRACTURE Right family history includes Diabetes in his brother, father, mother, and another family member; Heart disease in an other family member; Hyperlipidemia in an other family member; Hypertension in an otherfamily member; Stroke in his father, mother, and another family member. OBJECTIVE: Visit Vitals BP 132/80 (BP Location: Right arm, Patient Position: Sitting, BP Cuff Size: Adult long) Pulse 61 Temp 98 F (Temporal) Resp 18 Ht 5' 7 Wt 193 lb 3.2 oz SpO2 96% BMI 30.26 kg/m Smoking Status Former BSA 2.04 m Physical Exam Vitals and nursing note reviewed. Constitutional: Appearance: Normal appearance. HENT: Head: Normocephalic. Right Ear: External ear normal. Left Ear: External ear normal. Nose: Nose normal. Mouth/Throat: Mouth: Mucous membranes are moist. Pharynx: Oropharynx is clear. Eyes: Extraocular Movements: Extraocular movements intact. Conjunctiva/sclera: Conjunctivae normal. Neck: Vascular: Carotid bruit (left cartoid bruit) present. Cardiovascular: Rate and Rhythm: Normal rate and regular rhythm. Pulses: Normal pulses. Heart sounds: Normal heart sounds. Pulmonary: Effort: Pulmonary effort is normal. Breath sounds: Normal breath sounds. Abdominal: General: Bowel sounds are normal. There is no distension. Palpations: Abdomen is soft. There is no mass. Tenderness: There is abdominal tenderness (mild generalized near post op scars). There is no guarding. Hernia: A hernia is present. Musculoskeletal: Cervical back: Neck supple. Right lower leg: No edema. Left lower leg: No edema. Comments: Neg SLR X2, DTR's 2+ bilat patellar/achilles, MMT 5/5 bilat LE Skin: General: Skin is warm and dry. Capillary Refill: Capillary refill takes 2 to 3 seconds. Coloration: Skin is not jaundiced. Findings: No lesion. Neurological: General: No focal deficit present. Mental Status: He is alert. Psychiatric: Mood and Affect: Mood normal. Behavior: Behavior normal. Thought Content: Thought content normal. Judgment: Judgment normal. ASSESSMENT AND PLAN: No follow-ups on file. Problem List Items Addressed This Visit Abdominal pain, generalized Reviewed labs and MRI report Will refer to GI as well Relevant Orders Ambulatory referral to Gastroenterology Blood glucose elevated Relevant Orders Hemoglobin A1c Gastroesophageal reflux disease Continue with use of H2 melissa Will refer to GI Relevant Medications famotidine (Pepcid) 20 MG tablet Other Relevant Orders Ambulatory referral to Gastroenterology Obesity (BMI 30-39.9) S/P liver transplant (CMS/HCC) DARLENE (obstructive sleep apnea) Compliant with PAP Tremor Relevant Orders TSH Immunocompromised (CMS/HCC) Relevant Orders DEXA bone density Hypertension (CMS/HCC) - Primary At goal , no med dose changes Bilateral lower extremity edema Stable, cont with torsemide Portal hypertension (CMS/HCC) Stable, continues w hepatology Left carotid bruit Will order updated US , cont statin Relevant Orders Vascular US carotid artery duplex bilateral Cirrhosis of liver (CMS/HCC) S/p liver transplant Follows yearly with Hepatology Organ transplant Relevant Orders DEXA bone density Hyperlipidemia (CMS/HCC) Relevant Orders Lipid panel Vascular US carotid artery duplex bilateral Prostate cancer screening Relevant Orders PSA Dysuria Check urine and culture Relevant Orders Urinalysis with reflex microscopic (clean catch) Urine culture (clean catch) Other constipation Relevant Orders Ambulatory referral to Gastroenterology Decreased urine stream Relevant Orders Ambulatory referral to Urology * Zuly Bruno NP - 08/23/2024 6:28 AM EDTAssociated Problem(s): Cirrhosis of liver (CMS/HCC) S/p liver transplant Follows yearly with Hepatology documented in this encounterOzarks Medical [id number] Instructions* Patient Instructions* Zuly Bruno NP - 08/23/2024 8:40 AM EDT Labs, referrals to : GI, Urology Tests: bone density test documented in this [facility]07-25-2024 History of Present illness Narrative* Starla Edwards - 06/23/2024 8:51 AM EDT [facility] RX OUTREACH ADVANCED: Call Information: Date and Time of Contact: 06/23/2024 8:52 AM Method of Contact: By Phone Contact Type: Prescriptions Contactor: [facility] OP Contactee: Patient Shipping/Pickup: Medicare B Refill?: No Medication Name: Prograf 0.2mg Delivery Method: Ship Delivery Location: Home Signature Required: No Receive/Pickup Date: 06/29/2024 Shipping Address: [address] [place] [address] [address] Contact Info: Specialty ([place]) [phone] Jakob [phone] [facility] [phone] David [phone] Bedside Delivery ([facility]) [phone] documented in this encounterOS[facility] History of Present illness Narrative* Daisha Max, - 06/17/2024 10:00 AM EDT -Referring Provider for today's consult: Self, Self [...] Itraconazole and heart failure due to bushra outputfrom his AVF s/p ligation. He has been admitted multiple times since his last appointment. 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 Last refill from our office. Medicationcan be purchased over the counter going forward. [...] pains, photosensitive rashes, history of vasculitis or kidneyproblems. HEMATOLOGIC: Negative for any abnormal bruising, frequent [...] a normal S1/S2, without any appreciable murmurs, rubsor gallops. Pulmonary: Normal breath sounds, without any appreciable crackles, wheezing or rhonchi. No increased work of breathing. Abdominal: Well healed chevron scar. Soft, nontender, nondistended with normal bowel sounds withoutany appreciable ascites. +incisional hernia which is easily [...] 0.2 06/13/2024 Explant Pathology Pathologic Diagnosis A. [place] liver, orthotopic liver transplant resection (1458 gram): [...] reschedule which he prefers to do locally), lipidsevery 6 months, annual spot prot/cr ratio, DEXA every 2 years, TSH, vitamin D which can be arrangedthrough his primary care physicians. - Last colonoscopy 2018, repeat due 3-5 years given inadequate prep. He prefers to complete this locally and will contact his local provider. - Continue follow up with transplant Nephrology - Follow up in 1 year. Daisha Max DO Vice Squad Police Officer Gastroenterology, Hepatology and Nutrition [facility] [place] Pager: [phone] * José Miguel Garnica RN - 06/17/2024 10:00 AM EDT Images from the original note were not included. 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 Diet Clerk: Anayeli Burt Date of Liver Transplant: 04/13/2020 (Kidney), 04/13/2020 (Liver) 4 years, 2 months post Liver/KidneyTransplant Primary Disease: Hypertensive Nephrosclerosis Transplant Assistant Boiler Operator: Erma Roe/ Daisha Max Primary Care [...] Will need to remain for 1 year * Ashlee Fair RN - 06/17/2024 10:00 AM EDT Images from the original note were not included. Nursing Assessment In Clinic Patient is accompanied to clinic today by: self Did patient require a wheelchair or medical transport for appointment: no Is patient employed: no (Needed for [employer] forms) VITALS BP Readings from Last 3 [...] LAB AND PHARMACY: None Specified [id number] [place] [address] - [address] [facility] [facility] [address] [facility] [address] [facility] [address] [id number] [place] [address] [address] [facility] [address] [facility] [address] [facility] Jakob [address], [address] [place] [address] ROS and SCREEN: Chest Pain: negative Cough: [...] year: no Do you follow with a Boat Laborer? yes Do you have a Primary Care [...] TO ADDRESS WITH PHYSICIAN: documented in this encounterWayne [facility]07-19-2024 Instructions* Patient Instructions* Ashlee Fair RN - 06/17/2024 10:00 AM EDT - No medication changes from a liver standpoint - A MRI Abdomen has been ordered today. Please call central scheduling at [phone] to schedule or take paper copy to your local hospital - Return to clinic 06/16/2025 TRANSPLANT HEPATOLOGY 3, [facility] as scheduled documented in this encounterWayne Hospital07-19-2024 History of Present illness Narrative* Rebeca Gutierrez APRN-ROB - 06/17/2024 9:30 AM EDT Images from the original note were not included. George Styles is a 54 y.o. 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 The HLA mismatch was 1A,2B, 1DR. No longer follows with a local corporate legal intern. History of Present Illness: Since George [...] tablet daily. Last refill from our office. Medicationcan be purchased over the counter going forward. [...] and lab results. Rebeca Gutierrez MSN, RN, CAR TOP BOLTER-BC, CCTN Certified Nurse Practitioner [facility] [place] [address] [facility] [address] documented in this encounterWayne Hospital07-19-2024 Instructions* Patient Instructions* JEANNA Hess - 06/17/2024 9:30 AM EDT Tacrolimus - increase to 0.2 mg packet three time per day; goal 3 to 5 ng/dL ; when the itraconazole stops 09/03/2024, reduce to 0.5 mg twice daily. Once your tacrolimus level is 3-5 ng/dL, you may reduce labs to every other week. documented in this encounterOSU [facility]06-27-2024 History of Present illness Narrative* Destiny Jensen - 05/26/2024 4:33 PM EDT [facility] RX OUTREACH ADVANCED: Call Information: Date and Time of Contact: 05/26/2024 4:35 PM Method of Contact: By Phone Contact Type: Prescriptions Contactor: [facility] OP Contactee: Patient Contact Outcome: Left message and Follow-up Contact Info: Specialty (Yanci) [phone] Jakob [phone] [facility] [phone] David [phone] Bedside Delivery ([facility]) [phone] * Melody Reyez - 05/26/2024 4:33 PM EDT [facility] RX OUTREACH ADVANCED: Call Information: Date and Time of Contact: 05/30/2024 4:52 PM Method of Contact: By Phone Contact Type: Prescriptions Contactor: Patient Contactee: [facility] OP Shipping/Pickup: Medicare B Refill?: No Medication Name: Myco sod 360mg, Prograf 0.2mg Delivery Method: Ship Delivery Location: Home Signature Required: No Receive/Pickup Date: 06/06/2024 Shipping Address: [address] [place] [address] Contact Info: Specialty ([place]) [phone] Jakob [phone] [facility] [phone] David [phone] Bedside Delivery ([facility]) [phone] documented in this encounterWayne Hospital06-14-2024 NoteUT Cardiology - [facility] Subjective George Styles is a [...] Disp: , Rfl: t (more content not included)...[facility]04-25-2024 History of Present illness Narrative* Melody Reyez - 03/24/2024 4:12 PM EDT [facility] RX OUTREACH ADVANCED: Call Information: Date and Time of Contact: 03/24/2024 4:14 PM Method of Contact: By Phone Contact Type: Prescriptions Contactor: [facility] OP Contactee: Patient Contact Outcome: Left message Shipping/Pickup: Medication Name: Prograf 0.2mg pack Contact Info: Specialty (Yanci) [phone] [facility] [phone] [facility] [phone] David [phone] Bedside Delivery ([facility]) [phone] * Starla Edwards - 03/24/2024 4:12 PM EDT [facility] RX OUTREACH ADVANCED: Call Information: Date and Time of Contact: 03/28/2024 3:58 PM Method of Contact: By Phone Contact Type: Prescriptions Contactor: [facility] OP Contactee: Patient Contact Outcome: Left message and Call back later Shipping/Pickup: Medication Name: Mycophenolate, prograf Contact Info: Specialty ([place]) [phone] [facility] [phone] [facility] [phone] David [phone] Bedside Delivery ([facility]) [phone] * Gabbi Rajput - 03/24/2024 4:12 PM EDT [facility] RX OUTREACH ADVANCED: Call Information: Method of Contact: By Phone Contact Type: Prescriptions Contactor: Patient Contactee: [facility] OP Shipping/Pickup: Medicare B Refill?: No Medication Name: Mycopheolate 360mg and Prograf Delivery Method: Ship Delivery Location: Home Signature Required: No Receive/Pickup Date: 04/04/2024 Shipping Address: [address] [place] [address] [address] Contact Info: Specialty ([place]) [phone] [facility] [phone] [facility] [phone] David [phone] Bedside Delivery ([facility]) [phone] documented in this encounterWayne Hospital04-25-2024 History of Present illness Narrative* Melody Reyez - 03/24/2024 4:12 PM EDT [facility] RX OUTREACH ADVANCED: Call Information: Date and Time of Contact: 03/24/2024 4:14 PM Method of Contact: By Phone Contact Type: Prescriptions Contactor: [facility] OP Contactee: Patient Contact Outcome: Left message Shipping/Pickup: Medication Name: Prograf 0.2mg pack Contact Info: Specialty ([place]) [phone] [facility] [phone] [facility] [phone] David [phone] Bedside Delivery ([facility]) [phone] * Starla Edwards - 03/24/2024 4:12 PM EDT [facility] RX OUTREACH ADVANCED: Call Information: Date and Time of Contact: 03/28/2024 3:58 PM Method of Contact: By Phone Contact Type: Prescriptions Contactor: [facility] OP Contactee: Patient Contact Outcome: Left message and Call back later Shipping/Pickup: Medication Name: Mycophenolate, prograf Contact Info: Specialty ([place]) [phone] [facility] [phone] [facility] [phone] David [phone] Bedside Delivery ([facility]) [phone] * Gabbi Rajput - 03/24/2024 4:12 PM EDT [facility] OP RX OUTREACH ADVANCED: Call Information: Method of Contact: By Phone Contact Type: Prescriptions Contactor: Patient Contactee: [facility] OP Shipping/Pickup: Medicare B Refill?: No Medication Name: Mycopheolate 360mg and Prograf Delivery Method: Ship Delivery Location: Home Signature Required: No Receive/Pickup Date: 04/04/2024 Shipping Address: [address] [place] [address] [address] Contact Info: Specialty (Yanci) [phone] [facility] [phone] [facility] [phone] David [phone] Bedside Delivery ([facility]) [phone] * Meka Munoz, [facility] - 03/24/2024 4:12 PM EDT [facility] RX OUTREACH ADVANCED: Pre-Verification/Specialty Assessment/Disease [...] Within normal limits Contact Info: Specialty (Yanci) [phone] Jakob [phone] [facility] [phone] David [phone] Bedside Delivery ([facility]) [phone] documented in this encounterWayne Hospital04-03-2024 History of Present illness Narrative* Mckenna Stuart - 03/02/2024 8:14 AM EDT [facility] OP RX OUTREACH ADVANCED: Call Information: [...] del of broth Contact Info: Specialty (Yanci) [phone] [facility] [phone] [facility] [phone] David [phone] Bedside Delivery ([facility]) [phone] * Andressa Gutiérrez - 03/02/2024 8:14 AM EDT [facility] RX OUTREACH ADVANCED: Call Information: Date and Time of Contact: 03/02/2024 3:49 PM Method of Contact: By Phone Contact Type: Prescriptions Contactor: [facility] OP Contactee: Patient Contact Outcome: Left message and Follow-up Shipping/Pickup: Medication Name: Myco 360mg and Prograf 0.2mg Contact Info: Specialty (Yanci) [phone] [facility] [phone] [facility] [phone] David [phone] Bedside Delivery ([facility]) [phone] * Mckenna Stuart - 03/02/2024 8:14 AM EDT [facility] OP RX OUTREACH ADVANCED: Call Information: Date and Time of Contact: 03/02/2024 4:08 PM Method of Contact: By Phone Contact Type: Prescriptions Contactor: [facility] OP Contactee: Patient Shipping/Pickup: Medicare B Refill?: No Medication Name: Myco 360 / prograf 0.2 Delivery Method: Ship Delivery Location: Home Signature Required: No Receive/Pickup Date: 03/03/2024 Shipping Address: [address] [place] [address] [address] Contact Info: Specialty ([place]) [phone] [facility] [phone] [facility] [phone] David [phone] Bedside Delivery ([facility]) [phone] documented in this encounterWayne Hospital03-29-2024 History of Present illness Narrative* Marsha Mckeon RN - 02/26/2024 9:30 AM EDT Patient Education Patient education regarding the following [...] patient and or support team regarding plan ofcare. * Candie Almaguer MD - 02/26/2024 9:30 AM EDT Advanced Heart Failure / Transplant Cardiology New Patient Clinic Note George Styles is a 54 y.o. male presents to the HF Clinic at the [facility] on 02/26/2024 for initial evaluation of [...] TTE showed LVEF 55-60%, with pericardial effusion, andconcentric LVH. BNP on 01/16/24 on day of admsn was elevated at 212. RHC was done showing elevated filling pressures with some improvement with occlusion of AV fistula.His cardiac output was mildly elevated. Given these findings, he underwent ligation of the large AVfistula. He presents today for follow up. He [...] Surgeon: Jyoti Bryant MD, PhD; Location: [facility] MAIN OR PLACEMENT NEPHROSTOMY CATHETER PERCUTANEOUS W/ IMAGE GUIDANCE 05/17/2022 Surgeon: Enzo Heart DO; Location: [facility] INTERVENTIONAL RADIOLOGY (VIR) LIVER TRANSPLANT, ORTHOTOPIC N/A 04/12/2020 Laterality: N/A; Surgeon: LU Palma; Location: [facility] SAME DAY SURGERY MAIN OR KIDNEY TRANSPLANT W/O [place] NEPHRECTOMY N/A 04/12/2020 Laterality: N/A; Surgeon: [...] tablet daily. Last refill from our office. Medicationcan be purchased over the counter going forward. [...] ACEI / ARB / ARNI: no Beta Melissa: no MRA: no SGLT2 inh: no GLP-1 Ag: no Diuretic: torsemide 20 mg qd Vasodilator: amlodipine 5 mg qd Ivabradine: no Antiarrhythmic: no Antiplt: asa 81 mg qd Antithrombotic: no Statin: no ICD: NA SPRAYER OPERATOR: NA CV Test results: ECHOCARDIOGRAM 01/18/2024 [...] most certainly secondary to his long hx ofHTN and renal disease. - He met criteria [...] will be BP control. Candie Almaguer M.D. senior customer service representative Advanced Heart Failure Program Division of Cardiovascular Medicine [place] [email or web address] ph [phone] fax [phone] documented in this encounterOSU [facility]vue Hospital03-29-2024 Instructions* Patient Instructions* Marsha Mckeon RN - 02/26/2024 9:30 AM EDT The following instructions were given today: Labs today Follow up with Dr. Almaguer as needed. Your after visit summary (AVS) is viewable in [facility] My [facility]. Call RN if you have cardiac questions/concerns M-F 8 to 4:30 ; office # [phone], option 6, then option 2. Guidelines for home management: 1. Continue to monitor weight first thing each morning. 2. Report to the CHF CLINIC ([phone]) any significant weight change. Remember that weight [...] or ICD shock, trouble catching breath while lyingdown, increased edema or abdominal bloating). Remember that even minor changes in symptoms may beimportant. Also report any changes in medications including [...] to have labs/tests run outside of the [facility] and you do not hear from us1-2 days after they are performed, you must call us to ensure we received the results. Office fax #[phone]. No news does not necessarily mean that your tests are normal, it could mean we did not get the results. For questions/updates: please provide your name with spelling, date of and question or update All calls are prioritized and responses researched, if possible, prior to calls being returned. Call Scheduling for any appointment/procedure verification or changes [phone], option 7 or [facility] at [phone], option 1. documented in this encounterOSPromedica Toledo [facility]02-24-2024 Nurse Note* Nursing Notes - Terra Heart RN - 01/23/2024 3:49 PM EST Jakob wrap & kerlix removed to LUE per surgical team instructions/note. Incisional site dressing to left inner bicep area remains CDI at this time. Circ checks to LUE are WNL at time of discharge. After-care information reviewed, including daily incisional care starting tomorrow (01/24), monitoring for s/s infection, dressing supplies provided as well for incisional care. IV access removed, dress ing CDI at time of discharge. Patient has received all discharge instructions and voices understanding on picking up needed prescriptions at [facility] pharmacy as listed on discharge summary. Patient denies any unanswered questions at this time. Patient has been discharged with all of their belongings, transported via wheelchair on oxygen to front entrance for brother to transport home on home oxygen supply. [facility]02-24-[facility] Miscellaneous Notes* Nursing Notes - Terra Heart RN - 01/23/2024 3:49 PM EST Jakob wrap & kerlix removed to LUE per surgical team instructions/note. Incisional site dressing to left inner bicep area remains CDI at this time. Circ checks to LUE are WNL at time of discharge. After-care information reviewed, including daily incisional care starting tomorrow (01/24), monitoring for s/s infection, dressing supplies provided as well for incisional care. IV access removed, dress ing CDI at time of discharge. Patient has received all discharge instructions and voices understanding on picking up needed prescriptions at [facility] pharmacy as listed on discharge summary. Patient denies any unanswered questions at this time. Patient has been discharged with all of their belongings, transported via wheelchair on oxygen to front entrance for brother to transport home on home oxygen supply. * Nursing Notes - Terra Heart RN - 01/23/2024 2:16 PM EST Home Oxygen Qualification Patient: George Styles The patient is agreeable to the test and reports feeling shortness of breath & weakness withoutcomplaints. Patient oxygen saturation at rest on room air is: 92% (2 minutes at rest, add oxygen if saturationsgo below 89% at rest) Placed on 2L [...] at 4L of oxygen is also required.) * Plan of Care - Tati Ahmadi RN - 01/23/2024 6:54 AM EST Patient has had ongoing pain and nausea this shift which improved with prn medications. 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] POST OPERATIVE DIAGNOSIS Post-Op Diagnosis Codes: * High output congestive heart failure [I50.83] PROCEDURE PERFORMED Procedure(s) (LRB): LIGATION ANGIOACCESS AVF (Left) Resection of large aneurysmic vein PRIMARY CLOSURE Yes INTRAOPERATIVE FINDINGS No significant abnormalities SURGEON Surgeons and Role: * Jyoti Bryant MD, PhD - Primary ANESTHESIOLOGIST Anesthesiologist: Celena Tiwari MD; Kehinde Gutierrez MD VENEER SUPERVISOR: David Jasso APRN-VENEER SUPERVISOR Senior Industrial Engineer Assisting: Mini Khan MD SURGICAL STAFF Refrigeration Supervisor: Zoila Lawrence RN Relief Refrigeration Supervisor: Marimar Saravia RN Relief Scrub: Briseyda Self Scrub Person: Cinda Mai RN Resident Assisting: Leonel Harris DO Fellow: Miki Mcgowan MD, MBBS COMPLICATIONS None ESTIMATED BLOOD LOSS Minimal SPECIMENS No specimen sent * No specimens in log * Jyoti Bryant MD, PhD January 22, 2024 1:34 PM * Nursing Notes - Justin Almendarez RN - 01/22/2024 1:24 PM EST Arrived to PACU assisted by anesthesiology. Connected to monitors. Turned side to side, OR linens removed, repositioned. Airway patent, patient breathing easily. Report received from surgical elastic knitter and report received from anesthesiology. Pt arrived awake. VSS. Sats slightly low. Pulm rehab used. Sats currently 3lpm @ 93%. Pt states he uses CPAP nocturnally. A&Ox4. Nerve block left arm, elevated. * Op Note - Jyoti Bryant MD, PhD - 01/22/2024 12:00 PM EST Operative Report DATE PERFORMED: 01/22/2024 PREOPERATIVE DIAGNOSIS: [...] Axillary block. SURGEON(S): Jyoti Bryant MD, PHD FACILITIES PLANT ENGINEER: Mynor Fall MD ESTIMATED BLOOD LOSS: [...] Jyoti Bryant MD, PHD ATTENDING SHANNON/Constanza JOB: [id number] DOC: [id number] * Plan of Care - Tati Ahmadi RN - 01/22/2024 7:00 AM EST Patient has been asleep this shift. He continues to deny pain and has been NPO since midnight in preparation of this ligation today. He has his call light in reach and his bed remains low and locked. Problem: Patient Care Overview Goal: Plan of Care Review Outcome: Progressing Flowsheets Taken 01/22/2024 0655 Progress: improving Taken 01/21/2024 1940 Plan Of Care Reviewed With: patient * Nursing Notes - Paulette Cordon RN - 01/19/2024 9:02 AM EST 01/19/24 0900 Vitals ICU/PCU Pulse (Heart Rate) [...] rest, 95-96% when talking/moving. Paulette Cordon RN * Nursing Notes - Tati Charles RN - 01/19/2024 12:10 AM EST Paged overnight coverage, Jasper Gastelum MD, via pager #[phone] Pt- Mark. Neo Styleses 1082. TM1. Was wondering if he can have his Melatonin order increased to 6mg. Per pt, he usually takes 8mg at home. -SAMI Duffy #[phone] Tati Charles RN * Plan of Care - Arelis Mera MD - 01/16/2024 7:27 AM EST Internal Medicine Daily Progress Note Patient: George Styles, 1970, [id number] Physician: Arelis Mera MD, PGY3, Pager #[phone], TM1 service Assessment/Plan: George Styles is a [...] home amlodipine 5mg CAD: non-obstructive CAD on [facility] 2018. - continue home aspirin [...] MD, on rounds. Signed, Arelis Mera MD * Nursing Notes - Izzy Gutierrez RN - 01/16/2024 1:41 AM EST Mr. Styles was admitted to [address] [place] [address]. On admission to 0, from outside facility a dual RN initial assessment of skin condition was performed by Izzy Gutierrez RN and Leroy Singleton RN. Skin Assessment: Skin within defined limits:Yes Jose Score: 20 Wound Vision Silk Screen Operator images obtained: No LDA Added: No [...] nurses station when available. [facility]* Nursing Notes - Terra Heart RN - 01/23/2024 2:16 PM EST Home Oxygen Qualification Patient: George Styles The patient is agreeable to the test and reports feeling shortness of breath & weakness withoutcomplaints. Patient oxygen saturation at rest on room air is: 92% (2 minutes at rest, add oxygen if saturationsgo below 89% at rest) Placed on 2L [...] at 4L of oxygen is also required.) [facility]02-24-2024 History of Present illness Narrative* Leonel Harris DO - 01/23/2024 8:00 AM EST BRIEF TRANSPLANT SURGERY PROGRESS UPDATE: As noted in post op check yesterday he is okay for discharge from a post op standpoint. Arm wrap can come down today, incisional dressing should stay in place at least 1 more day. Patient aware that he can follow up with the surgery clinic as needed. Leonel Harris DO PGY-3 Surgery Resident * Kelvin Pacheco MD, MBBS - 01/22/2024 3:51 PM EST Patient seen and examined at [...] mg Oral Daily Kelvin Pacheco MD, MBBS biomedical engineering professor Transplant nephrology * Leonel Harris, - 01/22/2024 3:29 PM EST Surgery Post-Op Check Note George Styles is [...] monitor Leonel Harris DO General Surgery Pager [phone] * Girish Salvador RN - 01/22/2024 3:14 PM EST CM went to bedside to talk with patient. Patient states he has home oxygen through [employer]. He uses 2.5 LNC around the clock. Patient states his brother will bring a tank for discharge. Anticipate patient will discharge tomorrow AM. Brother updated. Girish Oro RN, BSN Clinical Chocolate Refining Roller Please note that I am a float home health care case manager and may not cover the same service every day. Please call the main Case Management office at [phone] for up-to-date coverage. Verified patients identity using date of . Appropriate PPE utilized. * Leonel Harris DO - 01/22/2024 6:56 AM EST TRANSPLANT SURGERY IMMUNOSUPPRESSION/ PROGRESS NOTE: Date of [...] the fellow/resident and agree with the note. * Yury Ozuna MD - 01/21/2024 2:24 PM EST Images from the original note were not included. Internal Medicine Daily Progress Note Patient: George Styles, 1970, [id number] Physician: Yury Ozuna MD, PGY1, Pager #[phone], TM1 service Assessment/Plan: George Styles is a [...] home amlodipine 5mg CAD: non-obstructive CAD on [facility] 2018. - continue home aspirin [...] reviewed and agreed with the Nutrition plan outlinedin the Data Communications Analyst s note. DVT prophylaxis with lovenox Diet [...] in resident note. Kelvin Pacheco MD, LU biomedical engineering professor Transplant nephrology * Kelvin Pacheco MD, LU - 01/20/2024 3:44 PM EST Patient seen and examined at [...] Oral BID AC Kelvin Pacheco MD, MBBS biomedical engineering professor Transplant nephrology * Yury Ozuna MD - 01/20/2024 9:31 AM EST Images from the original note were not included. Internal Medicine Daily Progress Note Patient: George Styles, 1970, [id number] Physician: Yury Ozuna MD, PGY1, Pager #[phone], TM1 service Assessment/Plan: George Styles is a [...] reviewed and agreed with the Nutrition plan outlinedin the Data Communications Analyst s note. DVT prophylaxis with lovenox Diet [...] my note from today for additional detail * Heidy Chatman - 01/19/2024 12:07 PM ESTSummary: Pharmacy Med Rec Department of Pharmacy Admission Medication Reconciliation Note Patient: George Styles Room/Bed: 1082/A The patient's allergies have been reviewed with Patient. I also have reviewed the patient's home medication list with the following sources Patient recall with prompting, Dispense Report, OARRs, and [facility]IS Review. I have also reviewed this list with the pharmacist. I am recommending the followingchanges to the home medication list. These recommendations [...] further questions. Name: Heidy Chatman Phone #: [phone] Date/Time: 01/19/2024 12:08 PM Time Spent: 15 minutes Associated attestation - Fidelina Alarcon RPH - 01/19/2024 12:41 PM EST Department of Pharmacy Admission Medication Reconciliation Note Patient: George Styles Room/Bed: 1082/A I have reviewed the home medication list with the Traffic Officer. The home medication list status is: complete. All changes to the home medication list have been updated in IHIS. Updated LIME PLANT OPERATOR Med List: Prior to Admission Medications [...] office. Medication can be purchased over the countergoing forward. faMOTIdine 20 MG tablet Sig: Take [...] any further questions. Name: Fidelina Angel Alarcon [facility] Phone #: [phone] Date/Time: 01/19/2024 12:41 PM * Yury Ozuna MD - 01/19/2024 11:10 AM EST Internal Medicine Daily Progress Note Patient: George Styles, 1970, [id number] Physician: Yury Ozuna MD, PGY1, Pager #[phone], UY5 service Assessment/Plan: Acute Hypoxic Respiratory Insufficiency GARCIA, [...] home amlodipine 5mg CAD: non-obstructive CAD on [facility] 2018. - continue home aspirin [...] reviewed and agreed with the Nutrition plan outlinedin the Data Communications Analyst s note. DVT prophylaxis with lovenox Diet [...] mg Oral Daily Kelvin Pacheco MD, MBBS biomedical engineering professor Transplant nephrology * Yury Ozuna MD - 01/18/2024 2:53 PM EST Internal Medicine Daily Progress Note Patient: George Styles, 1970, [id number] Physician: Yury Ozuna MD, PGY1, Pager #[phone], MH7 service Assessment/Plan: Updates: - continued diuresis with [...] home amlodipine 5mg CAD: non-obstructive CAD on [facility] 2018. - continue home aspirin [...] reviewed and agreed with the Nutrition plan outlinedin the Data Communications Analyst s note. DVT prophylaxis with lovenox Diet [...] base, crackles in LLL. No wheezing. No significantincreased work of breathing GI: soft, mildly distended, [...] in resident note. Kelvin Pacheco MD, LU biomedical engineering professor Transplant nephrology * BENJY Syed - 01/18/2024 1:42 PM EST Pt known to pulmonary care nurse from previous admissions. Provided emotional and spiritual support. Patient shared about: family support, medical course Broom Man provided: - Supportive presence - Active listening - Validation of feelings/emotions Patient encouraged to request a pulmonary care nurse as needed. Chaplains are available in-house 24 hours a day and 7 days a week. For urgent matters in [facility], please page [phone]. If the request is not urgent, please enter a consult. Consults are responded to within 24 hours. Senior Staff Broom Man Angie Singh Mdiv, [facility] Kirk [phone] [email or web address] On-call : call out operator David: 22/06 Pager ,[facility], and [place] 1500 David Pager [phone] 01/18/24 1342 Clinical Encounter Type Visited With Patient Visit Type Introduction Pastoral Time Spent 15 min Referral Other (See Comment) (rounding) Spiritual Assessment Emotional Observation Coping well;Anxiety Hope Observation Specific hope focus Support Observation By Family Interventions Provided Active listening;Supportive presence Facilitated Verbalization of feelings;Identifying support system;Identifying Sources of spiritual well-being Explored Expectations;Treatment decisions Procurement Officer Education Procurement Officer Service Available Yes Educated Patient Outcomes Patient Outcomes Articulated purpose/meaning Plan of Care Continue Visiting PRN * Fidelina Alarcon, [facility] - 01/18/2024 9:56 AM EST Department of Pharmacy Transplant Note Patient: George [...] interaction. Name: Fidelina Alarcon RPH Phone #: [phone] Date/Time: 01/18/2024 9:56 AM * Kasandra Hurt RN - 01/17/2024 7:13 PM EST Discharge Planning Patient Assessment Admission Assessment Patient [...] Yes Name and Contact information: Gian Styles ([phone]) Would you like to add additional adult [...] Is the patient from a facility or long term?: No Patient lives with: Alone Living Environment: [...] oxygen?: Yes Oxygen Provider and Contact : Total EclipseFlow?: Order for oxygen use?: unknown at this [...] patient on Anticoagulation? 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 : No Employed?: Disabled Coping/Stress Concerns about patient s coping and stress?: No Concerns about patient s caregiver s coping and stress?: No Values and Beliefs Cultural or amish practices that may impact discharge planning and/or [...] Plan 1. Identified self and role as Chocolate Refining Roller. 2. Confirmed and updated demographics and treatment team. 3. Chocolate Refining Roller will continue to follow with medical team for any other additional discharge needs. Kasandra DON RN [facility] [phone] *Please note I am float CM and work Thursday and Thursday every other week. Please call [phone] for assist in my absence. * Yury Ozuna MD - 01/17/2024 1:57 PM EST Internal Medicine Daily Progress Note Patient: George Styles, 1970, [id number] Physician: Yury Ozuna MD, PGY1, Pager #[phone], TM9 service Assessment/Plan: Updates: - continue diuresis with [...] home amlodipine 5mg CAD: non-obstructive CAD on [facility] 2018. - continue home aspirin [...] I discussed the findings and plan of thecase. I agree with the history, physical examination, [...] ordered 2D echo. Kevin Prince MD, FASN Vice Squad Police Officer of Clinical Medicine [facility] [place] of Medicine [facility] documented [facility] Plan of care note* Plan of Care - Tati Ahmadi RN - 01/23/2024 6:54 AM EST Patient has had ongoing pain and nausea this shift which improved with prn medications. He was ableto get some sleep and continues to use [...] Symptoms (Acute Pain): verbalization of pain descriptors [facility] Hospital Discharge instructions* Discharge Instructions* Arelis Mera MD - 01/22/2024 2:58 PM [...] your doctor for further instructions. Please call [phone], Option 1 or [phone] to schedule your appointment with the Heart Failure Clinic. * Discharge Instr - Wound Care* Arelis Mera MD - 01/22/2024 3:08 PM EST You can change your dressing 48 hours from the procedure * Attachments The following attachments cannot be sent through Care Everywhere. * Heart Failure: Avoiding Triggers (Thai) * Heart Failure: Limiting Sodium (Thai) * Pain and Pain Control ([facility]) (Thai) [facility] Surgery Postoperative evaluation and management note* Brief Op Note - Jyoti Bryant MD, PhD - 01/22/2024 1:34 PM EST George Styles ([id number]) PRE OPERATIVE DIAGNOSIS High output congestive heart failure [I50.83] POST OPERATIVE DIAGNOSIS Post-Op Diagnosis Codes: * High output congestive heart failure [I50.83] PROCEDURE PERFORMED Procedure(s) (LRB): LIGATION ANGIOACCESS AVF (Left) Resection of large aneurysmic vein PRIMARY CLOSURE Yes INTRAOPERATIVE FINDINGS No significant abnormalities SURGEON Surgeons and Role: * Jyoti Bryant MD, PhD - Primary ANESTHESIOLOGIST Anesthesiologist: Celena Tiwari MD; Kehinde Gutierrez MD VENEER SUPERVISOR: David Jasso APRN-VENEER SUPERVISOR Senior Industrial Engineer Assisting: Mini Khan MD SURGICAL STAFF Refrigeration Supervisor: Zoila Lawrence RN Relief Refrigeration Supervisor: Marimar Saravia RN Relief Scrub: Briseyda Self Scrub Person: Cinda Mai RN Resident Assisting: Leonel Harris DO Fellow: Miki Mcgowan MD, MBBS COMPLICATIONS None ESTIMATED BLOOD LOSS Minimal SPECIMENS No specimen sent * No specimens in log * Jyoti Bryant MD, PhD January 22, 2024 1:34 PM [facility] Work Phone: [phone] Nurse Note* Nursing Notes - Jsutin Almendarez RN - 01/22/2024 1:24 PM EST Arrived to PACU assisted by anesthesiology. Connected to monitors. Turned side to side, OR linens removed, repositioned. Airway patent, patient breathing easily. Report received from surgical elastic knitter and report received from anesthesiology. Pt arrived awake. VSS. Sats slightly low. Pulm rehab used. Sats currently 3lpm @ 93%. Pt states he uses CPAP nocturnally. A&Ox4. Nerve block left arm, elevated. [facility]02-23-2024 Surgery Postoperative evaluation and management note* Op Note - Jyoti Bryant MD, PhD - 01/22/2024 12:00 PM EST Operative Report DATE PERFORMED: 01/22/2024 PREOPERATIVE DIAGNOSIS: [...] Axillary block. SURGEON(S): Jyoti Bryant MD, PHD FACILITIES PLANT ENGINEER: Mynor Fall MD ESTIMATED BLOOD LOSS: [...] Jyoti Bryant MD, PHD ATTENDING SHANNON/Constanza JOB: [id number] DOC: [id number] [facility]02-23-[facility] Plan of care note* Plan of Care - Tati Ahmadi RN - 01/22/2024 7:00 AM EST Patient has been asleep this shift. He continues to deny pain and has been NPO since midnight in preparation of this ligation today. He has his call light in reach and his bed remains low and locked. Problem: Patient Care Overview Goal: Plan of Care Review Outcome: Progressing Flowsheets Taken 01/22/2024 0655 Progress: improving Taken 01/21/2024 1940 Plan Of Care Reviewed With: patient [facility]02-21-2024 Consult note* Starla Morris MD - 01/20/2024 2:15 PM ESTAssociated Order(s): IP CONSULT TO SURGERY - TRANSPLANT (RENAL) Images from the original note were not included. TRANSPLANT SURGERY CONSULT NOTE: Consult: 01/20/2024, 4:03 PM Farm Helper: Starla Morris MD Reason for Consult: Requesting Dr Carson Bryant for AVF revision/closure given new onset high output heart failure George Styles is a 53 y.o. male CURRENT HOSPITALIZATION LOS: Admit Date: 01/16/[address] [facility] LOS: 4 days George Styles is [...] DAY SURGERY MAIN OR KIDNEY TRANSPLANT W/O [place] NEPHRECTOMY N/A 04/12/2020 Laterality: N/A; Surgeon: [...] 04/09/20 0139 HEMODIALYSIS USE ONLY;Hemodialysis 04/09/20 0139 --1381 Fluid Management (24hrs): Intake/Output last 3 shifts: [...] seen and staffed with Dr. Mcgowan fellow prison keeper Thank you, Starla Morris MD Associated attestation - Jyoti Bryant MD, PhD - 01/22/2024 10:54 AM EST Beata Bryant MD, PhD, have independently seen and examined the patient, reviewed the labs, discussed the patient with the fellow/resident and agree with the note. [facility] Work Phone: 1(619) 139-330402-21-2024 Consult note* Starla Morris MD - 01/20/2024 2:15 PM ESTAssociated Order(s): IP CONSULT TO SURGERY - TRANSPLANT (RENAL) Images from the original note were not included. TRANSPLANT SURGERY CONSULT NOTE: Consult: 01/20/2024, 4:03 PM Farm Helper: Starla Morris MD Reason for Consult: Requesting Dr Carson Bryant for AVF revision/closure given new onset high output heart failure George Styles is a 53 y.o. male CURRENT HOSPITALIZATION LOS: Admit Date: 01/16/[address] [facility] LOS: 4 days George Styles is [...] DAY SURGERY MAIN OR KIDNEY TRANSPLANT W/O [place] NEPHRECTOMY N/A 04/12/2020 Laterality: N/A; Surgeon: [...] Access 04/09/20138 HEMODIALYSIS USE ONLY;Hemodialysis 04/09/20 013 --1381 Fluid Management (24hrs): Intake/Output last 3 shifts: [...] 141/3.8/--/1.6/-- (01/20 611) Labs-Coags: Ptt/Pt/Inr: 30.6/15.5/1.2 (01/20 06) ASSESSMENT/PLAN: George Styles is a 53 y.o. [...] seen and staffed with Dr. Mcgowan fellow prison keeper Thank you, Starla Morris MD Associated attestation - Jyoti Bryant MD, PhD - 01/22/2024 10:54 AM EST I. Jyoti Bryant MD, PhD, have independently seen and examined the patient, reviewed the labs, discussed the patient with the fellow/resident and agree with the note. * Hank Noel MD - 01/18/2024 1:24 PM ESTAssociated Order(s): IP CONSULT TO HEPATOBILIARY N [facility]ology Consult WebExchange --> IM Consult Serv [facility] --> [facility] Main Hepatology consult service [...] [address] He followed up with transplantID on 09/23/2023. For this presentation, patient states that around a week ago he started develop increasing dyspnea on exertion and increased fatigue. Additionally, prior to last week, patient has been doing well at home off any supplemental oxygen (3- 4L). He also had started developing cough with [...] sick contacts and has been afebrile at home.He states he has been more thirsty than [...] DAY SURGERY MAIN OR KIDNEY TRANSPLANT W/O [place] NEPHRECTOMY N/A 04/12/2020 Laterality: N/A; Surgeon: [...] given the timing and does not usually presentso acutely. In terms of his immunosuppression, tacro goal is 4-6 and he should continue Mycophenolate given his K-L transplant. IMPRESSION 1. S/p DCD SLK (03/2020) 2. Acute heart failure ASSESSMENT/RECOMMENDATIONS: - Check TSH - Follow-up Echocardiogram - Continue Tacro 0.2 mg TTS, mycophenolate 360 mg BID - Check daily tacro troughs - Fibroscan (order for outpatient) Please SecureChat or Call ([phone]) for any questions. Await attending attestation for final recommendations. Hnak Noel MD Division of Gastroenterology, Hepatology, and Nutrition Clinical Fellow, PGY-5 Pager: [phone] For urgent/stat calls or consults 5pm to 7am, please page the on-call GI fellow on [employer]. [facility]--> Internal Medicine--> Gastroenterology, Hepatology, & Nutrition--> 1st Call Janae Hatfield For urgent/stat calls or consults 7am to 5pm during the weekend, please page the on-call GI fellow on QGenda. [facility]--> Internal Medicine--> Gastroenterology, Hepatology, & Nutrition--> All Hep & East Wknd Cons Fel Day For follow up questions regarding this patient 7am to 5pm during the weekday, contact the Hepatology consults fellow or CARLOS A on [employer]enda. [facility]--> Internal Medicine--> Gastroenterology, Hepatology, & [...] and he should continue Mycophenolate given his K-Ltransplant. Today, he is doing well from liver standpoint. He is breathless and using O2 inhalation. - Stable from LT standpoint - Check TSH - Follow-up Echocardiogram - Continue Tacro 0.2 mg TTS, mycophenolate 360 mg BID - Check daily tacro troughs - Fibroscan (order for outpatient) Michael Estrada MD, MSc documented in this encounterOS[facility] Nurse Note* Nursing Notes - Paulette Cordon RN - 01/19/2024 9:02 AM EST 01/19/24 0900 Vitals ICU/PCU Pulse (Heart Rate) [...] rest, 95-96% when talking/moving. Paulette Cordon, RN [facility]02-20-2024 Nurse Note* Nursing Notes - Tati Charles RN - 01/19/2024 12:10 AM EST Paged overnight coverage, Jasper Gastelum MD, via pager #[phone] Pt- George Styles. Sarah 1082. TM1. Was wondering if he can have his Melatonin order increased to 6mg. Per pt, he usually takes 8mg at home. -SAMI Duffy #[phone] Tati Charles RN [facility]02-19-2024 Consult note* Hank Noel MD - 01/18/2024 1:24 PM ESTAssociated Order(s): IP CONSULT TO HEPATOBILIARY N [facility]ology Consult WebExchange --> IM Consult Serv [facility] --> [facility] Main Hepatology consult service [...] [address] He followed up with transplantID on 09/23/2023. For this presentation, patient states that around a week ago he started develop increasing dyspnea on exertion and increased fatigue. Additionally, prior to last week, patient has been doing well at home off any supplemental oxygen (3- 4L). He also had started developing cough with [...] sick contacts and has been afebrile at home.He states he has been more thirsty than [...] DAY SURGERY MAIN OR KIDNEY TRANSPLANT W/O [place] NEPHRECTOMY N/A 04/12/2020 Laterality: N/A; Surgeon: [...] given the timing and does not usually presentso acutely. In terms of his immunosuppression, tacro goal is 4-6 and he should continue Mycophenolate given his K-L transplant. IMPRESSION 1. S/p DCD SLK (03/2020) 2. Acute heart failure ASSESSMENT/RECOMMENDATIONS: - Check TSH - Follow-up Echocardiogram - Continue Tacro 0.2 mg TTS, mycophenolate 360 mg BID - Check daily tacro troughs - Fibroscan (order for outpatient) Please SecureChat or Call ([phone]) for any questions. Await attending attestation for final recommendations. Hank Noel MD Division of Gastroenterology, Hepatology, and Nutrition Clinical Fellow, PGY-5 Pager: [phone] For urgent/stat calls or consults 5pm to 7am, please page the on-call GI fellow on [employer]. [facility]--> Internal Medicine--> Gastroenterology, Hepatology, & Nutrition--> 1st Call Fel Alysia For urgent/stat calls or consults 7am to 5pm during the weekend, please page the on-call GI fellow on [employer]. [facility]--> Internal Medicine--> Gastroenterology, Hepatology, & Nutrition--> All Hep & East Wknd Cons Fel Day For follow up questions regarding this patient 7am to 5pm during the weekday, contact the Hepatology consults fellow or CARLOS A on [facility]--> Internal Medicine--> Gastroenterology, Hepatology, & [...] and he should continue Mycophenolate given his K-Ltransplant. Today, he is doing well from liver standpoint. He is breathless and using O2 inhalation. - Stable from LT standpoint - Check TSH - Follow-up Echocardiogram - Continue Tacro 0.2 mg TTS, mycophenolate 360 mg BID - Check daily tacro troughs - Fibroscan (order for outpatient) Michael Estrada MD, MSc [facility] Work Phone: [phone] Plan of care note* Plan of Care - Arelis Mera MD - 01/16/2024 7:27 AM EST Internal Medicine Daily Progress Note Patient: George Styles, 1970, [id number] Physician: Arelis Mera MD, PGY3, Pager #[phone], MW3 service Assessment/Plan: George Styles is a [...] home amlodipine 5mg CAD: non-obstructive CAD on [facility] 2018. - continue home aspirin [...] Arelis Mera MD [facility]02-17-2024 Nurse Note* Nursing Notes - Izzy Gutierrez RN - 01/16/2024 1:41 AM EST Mr. Styles was admitted to [address] [place] [address]. On admission to [facility], from outside facility a dual RN initial assessment of skin condition was performed by Izzy Gutierrez RN and Leroy Singleton RN. Skin Assessment: Skin within defined limits:Yes Jose Score: 20 Wound Vision Silk Screen Operator images obtained: No LDA Added: No [...] station when available. [facility]02-17-2024 History and physical note* Timothy Joseph MD - 01/16/2024 1:13 AM EST Images from the original note were not included. Internal Medicine Admission History & Physical Patient: George Styles, 1970, [id number] Physician: Timothy Joseph MD, PGY1, Pager #[phone], TM 1 service Date of face to [...] distention. He denied having any history of bloodclots in the past. He has also had 1-2 week history of headaches but denied having any myalgia or ar thralgias. He denied having any sick contacts and [...] transfer. Last echo was in 03/2020 with TEEshowing preserved EF at 60%. On admission, patient [...] DAY SURGERY MAIN OR KIDNEY TRANSPLANT W/O [place] NEPHRECTOMY N/A 04/12/2020 Laterality: N/A; Surgeon: [...] itraconazole Fax results to: Dr. White - [phone] Transplant Neph - [phone] Gabapentin 400 MG capsule Sig: Take 1 [...] office. Medication can be purchased over the countergoing forward. 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 Strength grossly equal in muscle groups of the bilateral UEsand LEs. Psych: Ox3, appropriate affect and cognition [...] home amlodipine 5mg CAD: non-obstructive CAD on [facility] 2018. - continue home aspirin [...] Erma Roe, Fidelina Pierson, Luisa Steven, Renee Freed, Daisha Max Diet Clerk: José Miguel Garnica All Txt: 04/13/2020 (Kidney), 04/13/2020 (Liver) Current I/S Meds: Current Immunosuppressive Medication(s) Immunosuppressive Agents Mycophenolate sodium (MYFORTIC) tablet DR 360 mg 360 mg, Oral, 2 TIMES DAILY (Solid Organ Transplant), Give on an empty stomach. Swallow tablet whole; do not crush, split or chew. Contact pharmacy ifalternate route or dose is needed. tacrolimus (PROGRAF) [...] results found for: CYCLOSPORIN , CYCLOSPORIN2 , [id number] , CYCLORAND No results found for: SIROLIMUS [...] request in chart. Kevin Prince MD Pager [phone] [facility]02-17-2024 History and physical note* Timothy Joseph MD - 01/16/2024 1:13 AM EST Images from the original note were not included. Internal Medicine Admission History & Physical Patient: George Styles, 1970, [id number] Physician: Timothy Joseph MD, PGY1, Pager #[phone], TM 1 service Date of face to [...] distention. He denied having any history of bloodclots in the past. He has also had 1-2 week history of headaches but denied having any myalgia or ar thralgias. He denied having any sick contacts and [...] transfer. Last echo was in 03/2020 with TEEshowing preserved EF at 60%. On admission, patient [...] DAY SURGERY MAIN OR KIDNEY TRANSPLANT W/O [place] NEPHRECTOMY N/A 04/12/2020 Laterality: N/A; Surgeon: [...] itraconazole Fax results to: Dr. White - [phone] Transplant Neph - [phone] Gabapentin 400 MG capsule Sig: Take 1 [...] office. Medication can be purchased over the countergoing forward. 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 Strength grossly equal in muscle groups of the bilateral UEsand LEs. Psych: Ox3, appropriate affect and cognition [...] home amlodipine 5mg CAD: non-obstructive CAD on [facility] 2018. - continue home aspirin [...] Erma Roe, Fidelina Pierson, Luisa Steven, Renee Freed, Daisha Max Diet Clerk: José Miguel Garnica All Txt: 04/13/2020 (Kidney), 04/13/2020 (Liver) Current I/S Meds: Current Immunosuppressive Medication(s) Immunosuppressive Agents Mycophenolate sodium (MYFORTIC) tablet DR 360 mg 360 mg, Oral, 2 TIMES DAILY (Solid Organ Transplant), Give on an empty stomach. Swallow tablet whole; do not crush, split or chew. Contact pharmacy ifalternate route or dose is needed. tacrolimus (PROGRAF) [...] results found for: CYCLOSPORIN , CYCLOSPORIN2 , [id number] , CYCLORAND No results found for: SIROLIMUS [...] request in chart. Kevin Prince MD Pager [phone] documented in this encounterWay[facility]02-13-[facility]24 History of Present illness Narrative* Vladislav Thomasbard - 01/12/2024 3:09 PM EST [facility] OP RX OUTREACH ADVANCED: Call Information: [...] Prograf 0.2 MG Contact Info: Specialty (Yanci) [phone] [facility] [phone] [facility] [phone] David [phone] Bedside Delivery ([facility]) [phone] * Anne Choudhury - 01/12/2024 3:09 PM EST [facility] RX OUTREACH ADVANCED: Call Information: Date and Time of Contact: 01/25/2024 10:23 AM Method of Contact: By Phone Contact Type: Prescriptions Contactor: [facility] OP Contactee: Patient Contact Outcome: Left message (prograf myco) Contact Info: Specialty (Yanci) [phone] [facility] [phone] [facility] [phone] David [phone] Bedside Delivery ([facility]) [phone] documented in this [facility]02-13-2024 History of Present illness Narrative* Vladislav Mcnally - 01/12/2024 3:09 PM EST [facility] OP RX OUTREACH ADVANCED: Call Information: [...] Prograf 0.2 MG Contact Info: Specialty (Yanci) [phone] [facility] [phone] [facility] [phone] David [phone] Bedside Delivery ([facility]) [phone] * Anne Choudhury - 01/12/2024 3:09 PM EST [facility] OP RX OUTREACH ADVANCED: Call Information: Date and Time of Contact: 01/25/2024 10:23 AM Method of Contact: By Phone Contact Type: Prescriptions Contactor: [facility] OP Contactee: Patient Contact Outcome: Left message (prograf myco) Contact Info: Specialty (Yanci) [phone] [facility] [phone] [facility] [phone] David [phone] Bedside Delivery ([facility]) [phone] * Anne Choudhury - 01/12/2024 3:09 PM EST [facility] OP RX OUTREACH ADVANCED: Call Information: Date and Time of Contact: 01/27/2024 10:19 AM Method of Contact: By Phone Contact Type: Prescriptions Contactor: [facility] OP Contactee: Patient Contact Outcome: Left message (myco prograf) Contact Info: Specialty (Yanci) [phone] [facility] [phone] [facility] [phone] David [phone] Bedside Delivery ([facility]) [phone] documented [facility] History of Present illness Narrative* Vladislav Dali - 01/12/2024 3:09 PM EST [facility] OP RX OUTREACH ADVANCED: Call Information: [...] Prograf 0.2 MG Contact Info: Specialty (Yanci) [phone] [facility] [phone] [facility] [phone] David [phone] Bedside Delivery ([facility]) [phone] * Anne Choudhury - 01/12/2024 3:09 PM EST [facility] OP RX OUTREACH ADVANCED: Call Information: Date and Time of Contact: 01/25/2024 10:23 AM Method of Contact: By Phone Contact Type: Prescriptions Contactor: [facility] OP Contactee: Patient Contact Outcome: Left message (prograf myco) Contact Info: Specialty (Yanci) [phone] [facility] [phone] [facility] [phone] David [phone] Bedside Delivery ([facility]) [phone] * Anne Choudhury - 01/12/2024 3:09 PM EST [facility] OP RX OUTREACH ADVANCED: Call Information: Date and Time of Contact: 01/27/2024 10:19 AM Method of Contact: By Phone Contact Type: Prescriptions Contactor: [facility] OP Contactee: Patient Contact Outcome: Left message (myco prograf) Contact Info: Specialty (Yanci) [phone] [facility] [phone] [facility] [phone] David [phone] Bedside Delivery ([facility]) [phone] * Andressa Gutiérrez - 01/12/2024 3:09 PM EST [facility] OP RX OUTREACH ADVANCED: Call Information: Date and Time of Contact: 02/01/2024 3:22 PM Contact Type: Prescriptions Contactor: [facility] OP Contactee: Patient Contact Outcome: Left message Shipping/Pickup: Medication Name: Mycophenolate 360mg and Prograf 0.2mg Pack Contact Info: Specialty (Yanci) [phone] [facility] [phone] [facility] [phone] [facility] [phone] Bedside Delivery ([facility]) [phone] documented in this encounterOS[facility] History of Present illness Narrative* Zuly Bruno NP - 01/06/2024 9:47 AM ESTAssociated Problem(s): Shortness of breath Check ECHO * Zuly Bruno NP - 01/06/2024 9:46 AM ESTAssociated Problem(s): Hypertension (CMS/HCC) No change in meds Check echo * Zuly Bruno NP - 01/06/2024 9:46 AM ESTAssociated Problem(s): Tremor I have advised pt to contact insurance company to see if they can provide a PA for pt to see neurologist in [facility] * Zuly Bruno NP - 01/06/2024 9:45 AM ESTAssociated Problem(s): DARLENE (obstructive sleep apnea) Continue with sleep med provider * CARI SONG - 01/06/2024 9:00 AM EST Still getting tremors SOB been on cpap in the last month and using oxygen Asking for a sleeping pill melatonin not helping Swelling in both ankles and bloated Seen neurologist on Thursday he said xray was fine any drugs he would proscribe would interfer with his trich Talked about a stimulator put in the brain The neurologist wanted to send him to [facility] neurology but it is out of network * Zuly Bruno, BA - 01/06/2024 9:00 AM EST Images from the original note were not [...] an other family member; Hypertension in an otherfamily member; Stroke in his father, mother, and [...] Atherosclerosis 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) documented in this encounterOzarks Medical [id number] Evaluation note* Author Yoselyn [facility] Authored December 15, 2024 9 :35am 54-year-old man with a histo ry of liver and kidney transplant in 2019 referred to the GI clinic for evaluation of heartburn and constipation. +chronic heartburn which is controlled with Pepcid. +constipation started a year ago, he reports 1 bowel movement every other day if he takes MiraLAX. Will arrange for colonoscopy to evaluate change in bowel habits. Will arrange for EGD to assess for Forrester's. Patient was recommended to avoid dehydration, add Miralax 17gm PO Qday and titrate up to twice or three times daily if needed. [facility] Work Phone: 1(129) 383-462411-07-2023 History of Present illness Narrative* Vladislav Mcnally - 10/06/2023 9:30 AM EST [facility] OP RX OUTREACH ADVANCED: Call Information: [...] Prograf 0.2 MG Contact Info: Specialty (Yanci) [phone] Jakob [phone] [facility] [phone] David [phone] Bedside Delivery ([facility]) [phone] * Gabbi Rajput - 10/06/2023 9:30 AM EST [facility] OP RX OUTREACH ADVANCED: Call Information: Date and Time of Contact: 10/23/2023 2:00 PM Method of Contact: By Phone Contact Type: Prescriptions Contactor: [facility] OP Contactee: Patient Contact Outcome: Left message and Call back later Shipping/Pickup: Medication Name: Mycophenolate 360mg and Prograf 0.2mg Contact Info: Specialty (Mineral) [phone] [facility] [phone] [facility] [phone] David [phone] Bedside Delivery ([facility]) [phone] documented in this encounterWayne Hospital10-13-2023 Miscellaneous Notes* Nursing Notes - Cheyanne Mcdonough RN - 09/11/2023 2:45 PM EDT Pt discharged home with discharge instruction. Reviewed AVS with pt and all question answered. PIV removed. RN got pt medication from outpatient pharmacy and delivered it to pt. Signed Lab script wasgiven to pt by this RN.Pt left will all personal belongings. Pt axox4 Per MD Serrano, pt is ok to go without oxygen even though pt is on 1L and pt only needs the oxygen during the night. pt will hop picker his oxygen from [employer] [facility], 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 This RN made sure that pt has the address to the facility for the oxygen. * Plan of Care - Terra Heart RN - 09/10/2023 5:54 PM EDT VSS. Patient 89-92% on 1L via NC. [...] 1833) Infection Prevention/Resolution: making progress toward outcome * Nursing Notes - Aixa Holden RN - 09/09/2023 4:18 PM EDT Patient is laying, no distress noted. Patient has been sating on RA ranging from 94-98% on continuous pulse ox and Sinus rhythm on telemetry, with no abnormal epidoses. Patient ambulates with steady gait to the bathroom. Patient's Amphotericin B is discontinued. Patient complains of no pain at thistime. Patient has no further concerns at this time. Nothing follows. Aixa Alejandra RN * Nursing Notes - Aixa Holden RN - 09/08/2023 4:09 PM EDT Patient conducted a 6min around the unit with the use of his walker. Patient varied between 91-96% on RA during ambulation. Patient reported mild shortness of breath on ambulation, but tolerable. Patient ambulated 2 laps around the east end of the unit with steady gait. Nothing further at this time. 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 Patient was mildly short of breath on exertion. At rest patient is currently 96% on RA. Patient expressed only really needing supplemental oxygen when sleeping. Patient stated he is starting to have productions with cough. Patient encouraged to perform incentive spirometer 10 times qhr. Patient demonstrated effective use and verbalized understanding. Aixa Alejandra RN * Plan of Care - Aixa Holden RN - 09/08/2023 10:54 AM EDT Rnn discussed plan of care with patient. Patient is weaned from 2L to 1L sating at 96-97%. Patient denies pain. Patient has a dry nonproductive cough, given Robitussin. Patient continues on Amphotericin B. Continous pulse and tele monitoring displaying NSR. * Plan of Care - Karla Mosley RN - 09/08/2023 1:54 AM EDT VSS, assessment unchanged. 2LNC overnight, GARCIA, infrequent [...] maximize functional performance. Outcome: Progressing Toward Goal * Plan of Care - Keyla Russell RN - 09/07/2023 8:18 AM EDT Problem: Patient Care Overview Goal: Plan of Care Review Outcome: Ongoing Goal: Individualization & Mutuality Outcome: Ongoing Goal: Discharge Needs Assessment Outcome: Ongoing Goal: Interdisciplinary Rounds/Family Conf Outcome: Ongoing * Plan of Care - Wilma Hay RN - 09/07/2023 4:24 AM EDT VSS on RA while awake. 2L NC [...] outcomes by discharge/transition of care. Outcome: Ongoing * Plan of Care - Keyla Russlel RN - 09/06/2023 8:15 AM EDT Problem: Patient Care Overview Goal: Plan of Care Review Outcome: Ongoing Goal: Individualization & Mutuality Outcome: Ongoing Goal: Discharge Needs Assessment Outcome: Ongoing Goal: Interdisciplinary Rounds/Family Conf Outcome: Ongoing * Plan of Care - Girish Fonseca RN - 09/06/2023 6:43 AM EDT George is A & O x 4. [...] outcomes by discharge/transition of care. Outcome: Ongoing * Plan of Care - Terra Heart RN - 09/05/2023 6:34 PM EDT VSS, no tachycardia noted this shift. Respirations [...] 1833) Infection Prevention/Resolution: making progress toward outcome * Plan of Care - Fredi Mcfaralne OT - 09/05/2023 2:50 PM EDT Problem: OT - Dressing Goal: Lower Body [...] energy and maximize functional performance. Outcome: Ongoing * Plan of Care - David Sutherland PT - 09/05/2023 9:25 AM EDT Problem: PT - Balance/Coordination/Neuro Re-Education Goal: Standing [...] necessary in recommended discharge environment. Outcome: Ongoing * Medical Student - Bony Waters - 09/04/2023 2:02 PM EDT Pulmonary/Critical Care Medicine Consult Progress Note Length of Stay: 7 days Impression & Recommendations: George Styles is a 53 y.o. male with a history of liver and kidney transplant for hepatorenal syndromeon 03/2020 who presented on 08/28/2023 with 5 [...] of liver and kidney transplant for hepatorenal syndromeon 03/2020 who presented on 08/28/2023 with 5 weeks of fever, cough, night sweats and weight loss. 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 Overnight, the patient experienced fever and chills likely 2/2 cytokine storm like reaction from treatment. Tmax of 101.2. Oxygen saturation in low 90s with 2 L NC. Currently being monitored in the PCU forsymptomatic management. This morning, the patient was having episodes of desaturation which eventually increased to 9 L andnow back to 8 L HFNC. Oxygen saturation [...] segment of LLL. Diffuse centrilobular nodules in thelungs with miliary pattern. CXR 09/03/23 Likely residual [...] Diaz MD Pulmonary and Critical Care Medicine * Code Documentation - Romana Crow RN - 09/04/2023 9:58 AM EDT ABG drawn and sent * Nursing Notes - Jasper Nino RN - 09/04/2023 8:23 AM EDT Patient c/o SOB on assessment. Spot check pulse ox at 84%. Turned O2 up from 2L to 5L to keep patient at 90%. MD Kelly notified. * Nursing Notes - Jasper Nino RN - 09/04/2023 8:23 AM EDT 09/04/23 0720 Vital Signs Temp 100.9 F (38.3 C) Temp source Oral Pulse (Heart Rate) 114 Heart Rate Source Monitor Resp Rate 18 BP 126/68 MAP (mmHg) 93 mmHg BP Method Automatic BP Location Right arm BP Position Lying O2 Sat (%) 92 % MD Kelly notified of patient's temp & HR 114. * Nursing Notes - Tati Charles RN - 09/04/2023 3:30 AM EDT Messaged Mainor Loomis, via [employer] secure chat, Temp 100.8. His tylenol order is not listed for temps though. Tati Charles RN * Nursing Notes - Zuly Shepard RN - 09/03/2023 6:00 PM EDT Discussed the plan for antibiotics with the pt. Explained the method for giving Ampho B and the itraconazole. All questions answered. Discussed volume of ampho B with pharmacist. Per pharmacist, guidelines state it is made in the correct volume. * Medical Student - Bony Waters - 09/03/2023 10:59 AM EDT Pulmonary/Critical Care Medicine Consult Progress Note Length of Stay: 6 days Impression & Recommendations: George Styles is a 53 y.o. male with a history of liver and kidney transplant for hepatorenal syndromeon 03/2020 who presented on 08/28/2023 with 5 [...] of liver and kidney transplant for hepatorenal syndromeon 03/2020 who presented on 08/28/2023 with 5 weeks of fever, cough, night sweats and weight loss. Pt reports that a few weeks before symptoms started had been working in the garden pulling weeds for a short period of time. 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 Episode [...] given increased oxygen requirement and shows no acutefindings. Objective Findings: Physical Exam: Temp: [97.9 F [...] Diaz MD Pulmonary and Critical Care Medicine * Nursing Notes - Tati Charles RN - 09/02/2023 7:30 PM EDT Message [employer] Loomis, via [employer] secure chat, Good evening, just an FYI, pt's HR went up to 138 and spo2 was 88% on 4L NC. Bumped him up to 5L NC, spo2 is now 93%, HR came back down to 104 right now. Got an EKG, Sinus Tach. Temp 99.5, day shiftRN went ahead and gave his prn Tylenol. Tati Charles RN * Medical Student - Bony Waters - 09/02/2023 2:50 PM EDT Pulmonary/Critical Care Medicine Consult Progress Note Length of Stay: 5 days Impression & Recommendations: George Styles is a 53 y.o. male with a history of liver and kidney transplant for hepatorenal syndromeon 03/2020 who presented on 08/28/2023 with 5 [...] of immunosuppression, bacterial pneumonia. Less likely TB ormalignancy. Acute hypoxic respiratory failure Diffuse pulmonary nodules Superior segment LLL consolidation Recommendations: - follow culture results from BAL - follow pending histo, parvovirus Plan discussed with Dr. Diaz. Attending attestation to follow. Bony Waters Interval History: George Styles is a 53 y.o. male with a history of liver and kidney transplant for hepatorenal syndromeon 03/2020 who presented on 08/28/2023 with 5 weeks of fever, cough, night sweats and weight loss. Pt reports that a few weeks before symptoms started had been working in the garden pulling weeds for a short period of time. 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 This morning, the patient was able to tolerate bronchoscopy well. A good BAL sample was collected for culture. This afternoon, the patient was breathing comfortably on 5L NC. Patient reports some throat irritation after the procedure. Pt's oxygen saturation was around low 90s so increased oxygen supplement to5L from 4L. Pt had couple questions which [...] Diaz MD Pulmonary and Critical Care Medicine * Nursing Notes - Mary Case RN - 09/02/2023 9:46 AM EDT Called report to bedside nurse * Nursing Notes - Mary Case RN - 09/02/2023 8:48 AM EDT 60in 25 out BAL to RML * Nursing Notes - Mary Case RN - 09/02/2023 8:37 AM EDT LLL 90in 30 out now RML being done * Nursing Notes - Mary Case RN - 09/02/2023 8:35 AM EDT BAL LLL superior segment * Nursing Notes - Mary Case RN - 09/02/2023 8:34 AM EDT Sats 96% on non rebreather 15L.... * Nursing Notes - Mary Case RN - 09/02/2023 8:27 AM EDT Tco2 43 * Nursing Notes - Mary Case RN - 09/02/2023 8:19 AM EDT Tco2 39 * Nursing Notes - Mary Case RN - 09/02/2023 8:[address] Loera here also (as400 developer) * Nursing Notes - Mary Case RN - 09/02/2023 8:[address] Diaz aware of pt's increased oxygen needs (arrived here on 4L n/c and sats only 91%) on hi flow oxygen at 7L is 94%..... Dr. Diaz asked that pt be put on non rebreather 15L this done and pt. Is now 97% * Plan of Care - Romana Crow RN - 08/30/2023 10:48 AM EDT Problem: Infection, Risk/Actual (Adult) Goal: Identify Related [...] 08/29/20231045 Sleep/Rest Enhancement: regular sleep/rest pattern promoted * Nursing Notes - Erica Houston RN - 08/29/2023 10:49 PM EDT Sent a secure 1-800-DENTISTIS chat to Rosi LUZ concerning patient's temp of 100.4 with no PRNs on board 2339: 650 mg of PRN tylenol given * Plan of Care - Romana Crow RN - 08/29/2023 10:48 AM EDT Problem: Breathing Pattern Ineffective (Adult) Goal: Identify [...] 1046) Anxiety/Fear Reduction: making progress toward outcome * Certification - Gi Aranda MD - 08/29/2023 3:25 AM EDT I certify that this patient requires inpatient services at this time. I anticipate the expected length of stay will include at least two midnights. Inpatient services are due to the following medicalconcerns prolonged fever in setting of immunosuppression, hypoxia. Plans for post hospitalization care will be discharge to home. Merlene Aranda MD Internal Medicine-Pediatrics, PGY-2 * Nursing Notes - Erica Houston RN - 08/28/2023 10:39 PM EDT Mr. Styles was admitted to [address] [place] [address]. On admission to 0, from home a [...] nurses station when available. documented in this encounterOS[facility] History of Present illness Narrative* BENJY Syed - 09/11/2023 2:30 PM EDT Provided follow-up emotional and spiritual support. Patient shared about rosemary of discharge and looking forward to seeing family Broom Man provided: - Supportive presence - Active listening - Validation of feelings/emotions Patient encouraged to request a pulmonary care nurse as needed. Chaplains are available in-house 24 hours a day and 7 days a week. For urgent matters in [facility], please page [phone]. If the request is not urgent, please enter a consult. Consults are responded to within 24 hours. Senior Staff Broom Man Angie Singh Mdiv, [facility] Kirk [phone] [email or web address] 22/06 On-call Kirk: [phone] 22/06 Pager ,BS, and Brock Maciel Pager [phone] 09/11/23 1438 Clinical Encounter Type Visited With Patient Visit Type Follow-up Pastoral Time Spent 15 min Referral Other (See Comment) (rounding) Spiritual Assessment Spiritual Observation Spirituality helpful Emotional Observation Coping well Hope Observation Specific hope focus Support Observation By Family Interventions Provided Active listening;Supportive presence Facilitated Verbalization of feelings Explored Expectations Procurement Officer Education Procurement Officer Service Available Yes Educated Patient Plan of Care Continue Visiting PRN * Dimitrios Gurrola RPh,PharmD - 09/11/2023 10:51 AM EDT Images from the original note were not included. [facility] Note: Non-Verbal Med Rec [facility] received the following discharge prescription(s): Total cost is $0. I have reviewed the Discharge Rx Reconciliation Report. The discharge prescription(s) will be delivered to the patient on 09/11/2023. Dimitrios Gurrola RPh,PharmD Specialty ([place]) [phone] [facility] [phone] [facility] Bedside Delivery [phone] [facility] [phone] [facility] Bedside Delivery [phone] [place] [phone] [facility] Bedside [facility] [phone] [place] [phone] [place]ol[place] [phone] Electronically signed by Dimitrios Gurrola [facility],PharmD at 09/11/2023 10:52 AM EDT * Evan Kelly MD - 09/10/2023 4:09 PM EDT Internal Medicine Daily Progress Note Patient: George Styles, 1970, [id number] Physician: Evan Kelly MD, PGY-1, TM1 service Subjective/Interval History: Patient continues to require oxygen overnight for desaturations. With insurance limitations, only accepting agency to provide home oxygen backed out. After calling them to discuss, Lynn stated she would be willing to have patient drive to their facility to hop picker supplies, however they close at 5pm. 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 His post-transplant course was noteworthy for nephrostomy tube (05/17/2022-09/10/2022) dueto concern for ureteral stone. He presents as [...] in 8-12 weeks Acute Hypoxic Respiratory Insufficiency [facility] Patient requiring 3-4L NC during admission. [...] reserve. 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 He ag ain had increased oxygen requirements on 10/6 am [...] liver/kidney transplant in 04/13/20. Patient on immunosuppression asabove. - Immunosuppresion management as above - Hepatic function panel unremarkable on admission Chronic Medical Conditions Essential Hypertension- controlled - continue home amlodipine 5mg, holding losartan 50mg BID CAD: non-obstructive CAD on [facility] 2018. - continue home aspirin [...] I discussed the findings and plan of thecase. I agree with the history, physical examination, [...] 5.05 (H) 11/19/2018 Kevin Prince MD, MADISONN [employer] Officer of Clinical Medicine [facility] [place] [facility] * Lora Lawrence RN - 09/10/2023 1:45 PM EDT Images from the original note were not included. Final Discharge Planning and Transportation Final Discharge Planning Discharge Disposition: Home Services at Discharge: Outpatient clinical services (ie: lab draws, transfusions, injectables) ([facility] Selected Continued Care - Admitted Since 08/28/2023 Durable Medical Equipment Coordination complete. Service Provider Selected Services Address Phone Fax Patient Preferred [employer] Durable Medical Equipment [address] [place] [address] [phone] Internal Comment last updated by Lora Lawrence RN 09/10/2023 1334 Correct contact information: [facility] [employer] [address] [place] [address] shot peen operator- you do not need to call at discharge, I already notified the company. Addendum 1525 [facility] notified this CM they are out of patient's insurance area and will not be able to service this patient at time of discharge. Provider notified. Addendum 2497 Dr Kelly called [facility] spoke to Lynn and she said they are willing to accept patient if the patient would drive to the [place] office and hop picker the supplies. Patient is willing to [...] Lora Colón RN, MSN, CCM, CMCN [employer] Transplant #[phone] * Matt Kramer [facility],PharmD - 09/10/2023 11:32 AM EDT Department of Pharmacy Transplant Note Patient: George [...] dose adjustment Name: Matt Kramer RPh,PharmD Phone: [phone] Date/Time: 09/10/2023 11:33 AM * Lora Lawrence RN - 09/10/2023 11:08 AM EDT This CM sent referral via [employer] for O2 concentrator to 4 agencies Start date today Timer set for [address] [employer] [facility] [employer] Addendum 1332 One accepting company reserved in [employer] [address] [place] [address] Lora Colón RN, MSN, CCM, CMCN [employer] [facility] Transplant #[phone] * Cecilia Mattson, DT - 09/09/2023 3:18 PM EDT NUTRITION FOLLOW-UP Nutrition Plan of Care: 1. Continue current diet order. 2. No oral supplements warranted at this time. 3. Monitor for significant weight changes. Monitor GI, skin integrity. 4. Monitor and encourage po intakes with goal of average po being 75-100%. 5. windshield repair technician to follow. Met with patient today at bedside wearing [...] five days is 94% of 9 meals. Sheila of n/v/c/d identified. Pt without significant weight changes. No oral supplement warranted at this time. Will continue to monitor. RHIANNON [place] Pager:[phone] * Evan White, DO - 09/09/2023 12:28 PM EDT Transplant Infectious Disease (Team 3) Progress Note [...] him to get an itraconazole level next weekand followup outpatient with ID. Recommendations: -stop famotidine -stop amphoB -continue PO itraconazole liquid 200mg q12h -itraconazole trough next week as an outpatient - can be done at same place as his usual transplantlabs -ID follow up - 09/23 Transplant ID (Team 3) will sign off. Please Epic message or page [phone] with questions. 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 His post-transplant course was noteworthy for nephrostomy tube (05/17/2022-09/10/2022) dueto concern for ureteral stone. He presents as [...] reserve. 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 He ag ain had increased oxygen requirements on 09/04 am [...] liver/kidney transplant in 04/13/20. Patient on immunosuppression asabove. - Immunosuppresion management as above - Hepatic function panel unremarkable on admission Chronic Medical Conditions Essential Hypertension- controlled - continue home amlodipine 5mg, holding losartan 50mg BID CAD: non-obstructive CAD on [facility] 2018. - continue home aspirin 81mg daily, holding atorvastatin 20mg daily Gout: continue home allopurinol 200mg daily BPH: continue home flomax 0.4mg daily DVT PPX: SQH Code Status: Full Code Disposition: Pending clinical course. Anticipate eventual discharge home. Discussed with team and attending, Kevin Prince MD, on rounds. Signed, Evan Kelly MD * Evan White, - 09/08/2023 3:12 PM EDT Transplant Infectious Disease (Team 3) Progress Note [...] to follow. Please Epic message or page [phone] with questions. 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 His post-transplant course was noteworthy for nephrostomy tube (05/17/2022-09/10/2022) dueto concern for ureteral stone. He presents as [...] reserve. 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 He ag ain had increased oxygen requirements on 10/6 am that resolved with repositioning and supportive care. Oxygen desaturations likely related to mucous plugging. He has been saturating on room air to 2LNC and feels as if he is mobilizing [...] transplant in 04/13/20. Prior to admission patient tooktacrolimus 0.5mg BID and mycophenolate 360mg BID for immunosuppression. - Current IS as above - Immunosuppresion management as above - Hepatic function panel unremarkable on admission Chronic Medical Conditions Essential Hypertension- controlled - continue home amlodipine 5mg, holding losartan 50mg BID CAD: non-obstructive CAD on [facility] 2018. - continue home aspirin 81mg daily, holding atorvastatin 20mg daily Gout: continue home allopurinol 200mg daily BPH: continue home flomax 0.4mg daily DVT PPX: SQH Code Status: Full Code Disposition: Pending clinical course. Anticipate eventual discharge home. Discussed with team and attending, Kevin Prince MD, on rounds. Signed, Laurel Serrano MD, PhD * Evan Kelly MD - 09/07/2023 2:00 PM EDT Internal Medicine Daily Progress Note Patient: George Styles, 1970, [id number] Physician: Evan Kelly MD, PGY-1, TM1 service Subjective/Interval History: No acute events overnight. Patient saturating appropriately on room air. He has been mobilizing hissecretions. Denies any shortness of breath. 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 His post-transplant course was noteworthy for nephrostomy tube (05/17/2022-09/10/2022) dueto concern for ureteral stone. He presents as [...] reserve. 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 He ag ain had increased oxygen requirements on 10/6 am that resolved with repositioning and supportive care. Oxygen desaturations likely related to mucous plugging. He has been saturating on room air to 2LNC and feels as if he is mobilizing [...] losartan 50mg BID CAD: non-obstructive CAD on [facility] 2018. - continue home aspirin [...] I discussed the findings and plan of thecase. I agree with the history, physical examination, [...] 5.05 (H) 11/19/2018 Kevin Prince MD, SERA [employer] Officer of Clinical Medicine [facility] * Ann Marie Haskins MD - 09/07/2023 10:33 AM EDT Transplant Infectious Disease (Team 3) Progress Note [...] to follow. Please Epic message or page [phone] with questions. Ann Marie Haskins MD PGY-4, [...] secretions. Continue current antimicrobials but hopefully can getdown to only PO and discharge in the next few days if he continues to improve. Please message via [employer] secure chat or page with any questions or concerns. Evan White DO [employer] Police Officer Division of Infectious Disease * Evan White DO - 09/06/2023 2:40 PM EDT Transplant Infectious Disease (Team 3) Progress Note [...] to follow. Please Epic message or page [phone] with questions. Evan White DO Transplant Infectious Diseases * Crow Diaz MD - 09/06/2023 1:02 PM EDT Images from the original note were not included. Pulmonary/Critical Care Medicine Daily Progress Note Reason for Consultation: bronch for infectious workup Requesting Physician: Dr. Prince CURRENT HOSPITALIZATION: Admit Date: 08/28/[address] [facility] LOS: 9 days Impression 1. Acute hypoxemic respiratory failure 2. Pulmonary histoplasmosis. Serum ag positive. His CT chest is notable for a dense infiltrate in LLL superior segment along with diffuse bilateral micro nodules in a miliary pattern. Histo certainlyfits this pattern. He is s/p BAL though [...] tablet daily. Last refill from our office. Medicationcan be purchased over the counter going forward. [...] Mycophenolate sodium (Myfortic) [address] Tapia 3 tablets by mouth every 12 hours. 08/28/2023 at 0800 polyethylene glycol 17 g Pack packet Take 1 packet by mouth daily. 08/27/2023 Sulfamethoxazole-trimethoprim 800-160 MG per tablet Take 1 tablet by mouth 2 times daily. 08/28/2023 Tacrolimus (PROGRAF) 0.5 MG capsule Take 1 capsule by mouth every 12 hours. 180 capsule 1 08/28/2023t 0800 Tamsulosin HCl 0.4 MG capsule take [...] and interpreted reviewed the radiographic data [facility] * Evan Kelly MD - 09/06/2023 9:09 AM EDT Internal Medicine Daily Progress Note Patient: George Styles, 1970, [id number] Physician: Evan Kelly MD, PGY-1, TM1 service Subjective/Interval History: No acute events overnight. Patient saturating appropriately on room air. 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 His post-transplant course was noteworthy for nephrostomy tube (05/17/2022-09/10/2022) dueto concern for ureteral stone. He presents as [...] reserve. 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 He ag ain had increased oxygen requirements on 10/6 am [...] losartan 50mg BID CAD: non-obstructive CAD on [facility] 2019. - continue home aspirin 81mg daily, holding atorvastatin 20mg daily Gout: continue home allopurinol 200mg daily BPH: continue home flomax 0.4mg daily DVT PPX: SQH Code Status: Full Code Disposition: Pending clinical course. Anticipate eventual discharge home. Discussed with team and attending, eKvin Prince MD, on rounds. Signed, Evan Kelly MD Attending Physician Addendum I saw and personally examined Mr. Styles with the renal team. I discussed the findings and plan of thecase. I agree with the history, physical examination, [...] 5.05 (H) 11/19/2018 Kevin Prince MD, SERA [employer] Officer of Clinical Medicine [facility] * Crow Diaz MD - 09/05/2023 4:33 PM EDT Images from the original note were not included. Pulmonary/Critical Care Medicine Daily Progress Note Reason for Consultation: bronch for infectious workup Requesting Physician: Dr. Prince CURRENT HOSPITALIZATION: Admit Date: 08/28/[address] [facility] LOS: 8 days Impression 1. Acute hypoxemic respiratory failure 2. Pulmonary histoplasmosis. Serum ag positive. His CT chest is notable for a dense infiltrate in LLL superior segment along with diffuse bilateral micro nodules in a miliary pattern. Histo certainlyfits this pattern. He is s/p BAL though [...] tablet daily. Last refill from our office. Medicationcan be purchased over the counter going forward. [...] mouth every 12 hours. 180 capsule 1 08/28/2023t 0800 Tamsulosin HCl 0.4 MG capsule take [...] and interpreted reviewed the radiographic data in [facility] [facility]. * Fredi Mcfarlane OT - 09/05/2023 2:50 PM EDT Acute Occupational Therapy Evaluation Prior to Admission [...] Assessment: Transfer Assessment: Sit to Stand Transfer [place] Level: Sit->Stand: independent Skilled Intervention/Details: Sit->Stand: x1 from EOB, x1 from toilet Stand to Sit Transfer [place] Level: Stand->Sit: independent Skilled Intervention/Details: Stand->Sit: x1 to toilet, x1 to EOB Functional Mobility: Functional Mobility [place] Level: Functional Mobility/Gait: independent Ambulation Distance (Feet): 20 Skilled Intervention/Details - Functional Mobility/Gait: pt performed functional mobility to/from RR w/ no overt LOB Outcome Score(s): CURRENT [facility] Daily Activity Inpatient Short Form Putting on/Taking Off Lower Body Clothin - A Little Assistance Bathin - A Little Assistance Toiletin - A Little Assistance Putting on/Taking Off Upper Body Clothin - No Assistance Groomin - No Assistance Eatin - No Assistance CURRENT [facility] Activity Raw Score: 21 CURRENT [facility] Activity Functional Limitation/Modifier: 32.79% Currently Impaired in Daily Activity- CJ Interventions: Assessment & Plan: Patient was [...] represents the current Occupational Therapy Discharge Summary. * David Sutherland PT - 09/05/2023 9:25 AM EDT Acute Physical Therapy Evaluation Prior to Admission [facility] score(s): PRIOR LEVEL AM-PAC Mobility [...] supplemental O2 for approx 8 minutes, still maintainedSpO2 in 92-95%. Informed Rn. O2 Device: nasal [...] Intact Mobility Assessment: Supine to Sit Mobility [place] Level: Supine->Sit: modified independence Bed Features/Set-up: Supine->Sit: Head of bed elevated Sit to Supine Mobility [place] Level: Sit->Supine: not tested Balance: Sitting Balance [...] environment. Transfer Assessment: Sit to Stand Transfer [place] Level: Sit->Stand: independent Skilled Intervention/Details: Sit->Stand: From EOB x 2 without difficulty. Stand to Sit Transfer [place] Level: Stand->Sit: independent Assistive Device: Stand->Sit: armed chair Skilled Rationale: Verbal cues, Positioning Gait/Functional Mobility: Gait Assessment [place] Level: Gait: stand-by assist Assistive Device: Gait: rollator Ambulation Distance (Feet): 400 Gait Deviations Identified: decreased grace, decreased gait speed Gait Skilled Rationale: verbal, upright posture, increase step length, increase foot clearance Skilled Intervention/Details - Gait: Reasonable foot clearnce without loss of balance but endorsingdyspnea as 6-7/10. Stairs: Stairs Assessment [place] Level: Stair Negotiation: not tested Outcome Score(s): CURRENT [facility] Basic Mobility Inpatient Short Form [...] a railin - A Little Assistance CURRENT [facility] Mobility Raw Score: 21 CURRENT [facility] Mobility Functional Limitation/Modifier: 28.97% Currently Impaired in Basic Mobility- CJ Interventions: Assessment & Plan: Patient was admitted for ongoing fevers and sweats with suspected HRS and found with PNA and seen for therapy evaluation related to impaired functional endurance precluding typical ability to mobilize in order to care for self. Exam findings include impairments in: Gait/Locomotion, Aerobic capacity/endurance, Ventilation and respiration/gas exchange. These impairments contribute to functional limitations including Decreasedfunctional mobility. Current clinical presentation is Stable - [...] independence while in hospital to prevent deconditioning andfunctional decline. Provided mobility-related education including precautions associated [...] Therapy Services or patient discharge from the hospitalthis note represents the current Physical Therapy Discharge Summary. 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 His post-transplant course was noteworthy for nephrostomy tube (05/17/2022-09/10/2022) dueto concern for ureteral stone. He presents as [...] reserve. 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 He ag ain had increased oxygen requirements on 09/04 am [...] be 1.1-1.4, though variable. Bmup in creatinine today.Patient on amphotericin so keeping a close monitor [...] losartan 50mg BID CAD: non-obstructive CAD on [facility] 2018. - continue home aspirin [...] I discussed the findings and plan of thecase. I agree with the history, physical examination, [...] 5.05 (H) 11/19/2018 Kevin Prince MD, SERA [employer] Officer of Clinical Medicine [facility] [place] [facility] * Evan White, - 09/04/2023 3:25 PM EDT Transplant Infectious Disease (Team 3) Progress Note [...] to follow. Please Epic message or page [phone] with questions. Evan White DO Transplant Infectious Diseases * Evan Kelly MD - 09/04/2023 1:20 PM EDT Images from the original note were not included. 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 His post-transplant course was noteworthy for nephrostomy tube (05/17/2022-09/10/2022) dueto concern for ureteral stone. He presents as [...] losartan 50mg BID CAD: non-obstructive CAD on [facility] 2018. - continue home aspirin [...] I discussed the findings and plan of thecase. I agree with the history, physical examination, [...] or open doses of this medication. Contact pharmacyif altered dose or route needed. Lab Results Component Value Date TACROLIMUS 3.6 (L) 09/04/2023 TACROTRGHMAN 4.1 08/17/2023 On significantly reduced immunosuppression given interaction with P 450 system Kevin Prince MD, FASN [employer] Officer of Clinical Medicine [facility] [place] [facility] * Laurel Serrano MD, PhD - 09/04/2023 10:00 AM EDT ERT Note: ERT called by RN 2/2 patient remaining on increased O2 from recent baseline and RT not yet at badside to assess, get ABG and provide treatment as needed. STAT team met at bedside. On arrival, patientsaturating 95% on 9L HFNC. Reports feeling better [...] appears to be the case ongoing this timeas well. Suspect mucus plugging, derecruitment in setting of cough, patient not taking many deep breath due to starting cough. Fluid up, but only minimal basilar crackles- low concern for cause beingpulmonary edema. Plan: - HFNC for goal saturation [...] [facility] * Laurel Serrano MD, PhD - 09/04/2023 9:03 AM EDT Brief plan of care update: Called to [...] [facility] * Evan White, DO - 09/03/2023 3:38 PM EDT Transplant Infectious Disease (Team 3) Progress Note [...] team. Transplant ID (Team 3) will continue tofollow. Please Epic message or page [phone] with questions. Evan White DO Transplant Infectious Diseases * Evan Kelly MD - 09/03/2023 3:33 PM EDT Internal Medicine Daily Progress Note Patient: George Styles, 1970, [id number] Physician: Evan Kelly MD, PGY-1, TM1 service Subjective/Interval History: Patient briefly requiring 5L NC overnight, was weaned down to 1L NC this morning. His labs returnedpositive for histo/blasto and Infectious Disease counselled patient on illness. We are starting amphotericin and itraconazole for treatment. Patient denies shortness of rbeath at rest. He does becometachycardic and short of breath with activity. 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 His post-transplant course was noteworthy for nephrostomy tube (05/17/2022-09/10/2022) dueto concern for ureteral stone. He presents as [...] 2/2 renal function CAD: non-obstructive CAD on [facility] 2018. - continue home aspirin [...] I discussed the findings and plan of thecase. 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 His post-transplant course was noteworthy for nephrostomy tube (05/17/2022-09/10/2022) dueto concern for ureteral stone. He presents as [...] of UTI and UA non-infectious on admission. Concernfor other opportunistic infection in setting of immunosupression. [...] 2/2 renal function CAD: non-obstructive CAD on [facility] 2018. - continue home aspirin [...] I discussed the findings and plan of thecase. I agree with the history, physical examination, [...] 5.05 (H) 11/19/2018 Kevin Prince MD, SERA Vice Squad Police Officer of Clinical Medicine [facility] [employer] [facility] [employer] [facility] * Lora Lawrence RN - 09/02/2023 11:49 AM EDT Progression of Care Note Expected Discharge Date: [...] Lora Colón RN, MSN, CCM, CMCN Clinical Chocolate Refining Roller- R10 Transplant #[phone] * BENJY Syed - 09/02/2023 11:17 AM EDT Made introductory visit with patient. Provided emotional and spiritual support. Patient shared about: - Source of Rosemary: Camping/Fishing/Family - Spirituality/Episcopal Affiliation: raised Spiritism - Family Support/history - Experience with illness/hospital course - Hopes for healing/future Broom Man provided: - Supportive presence - Active listening - Validation of feelings/emotions - Pledged prayer Patient encouraged to request a pulmonary care nurse as needed. Chaplains are available in-house 24 hours a day and 7 days a week. For urgent matters in [facility], please page [phone]. If the request is not urgent, please enter a consult. Consults are responded to within 24 hours. Senior Staff Broom Man Angie Singh Mdiv, [facility] Kirk [phone] [email or web address] 22/06 On-call Wall: [phone] 22/06 Pager ,BSLydia, and Brock Maciel Pager [phone] 09/02/23 2015 Clinical Encounter Type Visited With Patient Visit Type Introduction Pastoral Time Spent 15 min Referral Other (See Comment) (rounding) Spiritual Assessment Spiritual Observation Spirituality helpful Emotional Observation Coping well Hope Observation Specific hope focus Support Observation By Family Interventions Provided Active listening;Supportive presence Facilitated Verbalization of feelings Explored Expectations Procurement Officer Education Procurement Officer Service Available Yes Educated Patient Outcomes Patient Outcomes Reduced distress Plan of Care Continue Visiting PRN * Cecilia Mattson, DT - 09/02/2023 8:51 AM EDT NUTRITION RISK SCREENING NOTE Nutrition Plan of Care: 1. Continue current diet order. 2. No oral supplements warranted at this time. 3. Monitor for significant weight changes. Monitor GI and skin integrity. 4. Monitor and encourage po intakes with goal of average po being 100%. 5. windshield repair technician to follow. George Styles is a 53 y.o. 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 His post- transplant course was noteworthy for nephrostomy tube (05/17/2022-09/10/2022) due to concern for ureteral stone. He presents as a direct admission for fever, cough, for infectious workup. Pt unavailable and information obtained via chart review Client Program Manager Screening Pt's appetite is good. Pt [...] with meds Food Allergies reviewed:Shellfish Cultural or Episcopal Restrictions/Preferences: None GI: Last Bowel Movement: 09/01/23 [...] time. Will continue to monitor. RHIANNON BirminghamR Pager:[phone] * Evan Kelly MD - 09/01/2023 3:44 PM EDT Internal Medicine Daily Progress Note Patient: George Styles, 1970, [id number] Physician: Evan Kelly MD, PGY-1, TM1 service Subjective/Interval History: No acute events overnight. Patient continues to have increased oxygen requirement. Pulmonology consulted who plans to perform bronchoscopy tomorrow. He is in agreement with the plan and does not haveany questions for the team. 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 His post-transplant course was noteworthy for nephrostomy tube (05/17/2022-09/10/2022) dueto concern for ureteral stone. He presents as [...] of UTI and UA non-infectious on admission. Concernfor other opportunistic infection in setting of immunosupression. [...] 2/2 renal function CAD: non-obstructive CAD on [facility] 2018. - continue home aspirin [...] as outlined above. Kevin Prince MD Pager [phone] * Heidy Lurdes - 09/01/2023 2:00 PM EDTSummary: Pharmacy Med Rec Department of Pharmacy Admission Medication Reconciliation Note Patient: George Styles Room/Bed: 1062/A The patient's allergies have been reviewed with Patient. I also have reviewed the patient's home medication list with the following sources Patient recall with prompting, Dispense Report, OARRs, Outside hospital record in Care Everywhere and [facility] Review. I have also reviewed this list with the daniel salgado. I am recommending the following changes to the home medication list. These recommendations are considered preliminary until attestation of this note by a pharmacist. Edits to Home Medications: mycophenolate 360 mg (2 tabs) q12h TO 540 mg (3 tabs) q12h. OARRs Report: Has been reviewed. gabapentin 400 mg Filled: 06/07/23 Amount: # 90 Day Supply: 90 Refills: 0 Provider: Zuly Bruno [employer] [facility]: [facility] Other Comments: Patient reported his Last Home Dose of mycophenolate & tacrolimus was on 08/28/23 at 0900. Patient reported he was taking Bactrim and benzonatate for fevers and a cough he was having. Please feel free to contact me with any further questions. Name: Heidy Chatman Phone #: [phone] Date/Time: 09/01/2023 2:01 PM Time Spent: 15 minutes Associated attestation - Matt Kramer RPh,PharmD - 09/01/2023 2:28 PM EDT Department of Pharmacy Admission Medication Reconciliation Note Patient: George Styles Room/Bed: 1062/A I have reviewed the home medication list with the Traffic Officer. All changes to the home medication list have been updated in IHIS. Updated LIME PLANT OPERATOR Med List: Prior to Admission Medications [...] office. Medication can be purchased over the countergoing forward. atorvastatin 20 MG tablet Sig: Take [...] questions. Name: Matt Kramer RPh,PharmD Phone #: [phone] Date/Time: 09/01/2023 2:28 PM * Evan White DO - 08/31/2023 4:49 PM EDT Transplant Infectious Disease (Team 3) Progress Note [...] crypto antigen, EBV PCR -follow pending histo, [id number] labs These recommendations were discussed with the primary team. Transplant ID (Team 3) will continue tofollow. Please Epic message or page [phone] with questions. 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 His post-transplant course was noteworthy for nephrostomy tube (05/17/2022-09/10/2022) dueto concern for ureteral stone. He presents as [...] of UTI and UA non-infectious on admission. Concernfor other opportunistic infection in setting of immunosupression. [...] 2/2 renal function CAD: non-obstructive CAD on [facility] 2018. - continue home aspirin [...] I discussed the findings and plan of thecase. I agree with the history, physical examination, [...] 5.05 (H) 11/19/2018 Kevin Prince MD, SERA [employer] Police Officer of Clinical Medicine [facility] * Kasandra Hurt RN - 08/30/2023 6:42 PM EDT Discharge Planning Patient Assessment Admission Assessment Patient [...] Yes Name and Contact information: Gian Styles ([phone]) Reviewed and Updated in Demographics? : Yes Outpatient Providers Does patient have a primary care physician? : Yes When was the patient's last PCP visit?: > 30 days Does the patient follow any specialists?: No Reviewed and updated Care Team?: Yes Patient Care Team: Zuly Bruno CNP as PCP - General Environment/Caregivers Is the patient from a facility or long term?: No Patient lives with: Alone Living Environment: [...] patient on Anticoagulation? 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 : No Employed?: Disabled Coping/Stress Concerns about patient s coping and stress?: No Concerns about patient s caregiver s coping and stress?: No Values and Beliefs Cultural or amish practices that may impact discharge planning and/or [...] Plan 1. Identified self and role as Chocolate Refining Roller. 2. Confirmed and updated demographics and treatment team. 3. Chocolate Refining Roller will continue to follow with medical team/pt for any other additional discharge needs. Kasandra DON RN [facility] [phone] *Please note I am float CM and work Thursday and Thursday every other week. Please call [phone] for assist in my absence. 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 His post-transplant course was noteworthy for nephrostomy tube (05/17/2022-09/10/2022) dueto concern for ureteral stone. He presents as [...] of UTI and UA non-infectious on admission. Concernfor other opportunistic infection in setting of immunosupression. [...] 2/2 renal function CAD: non-obstructive CAD on [facility] 2018. - continue home aspirin [...] I discussed the findings and plan of thecase. 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 His post-transplant course was noteworthy for nephrostomy tube (05/17/2022-09/10/2022) dueto concern for ureteral stone. He presents as [...] losartan 50mg BID CAD: non-obstructive CAD on [facility] 2018. - continue home aspirin 81mg daily, atorvastatin 20mg daily Gout: continue home allopurinol 200mg daily BPH: continue home flomax 0.4mg daily DVT PPX: SQH Code Status: Full Code Disposition: Pending clinical course. Anticipate eventual discharge home. Discussed with team and attending, Kevin Prince MD, on rounds. Signed, Laurel Serrano MD, PhD documented in this encounterWayne Hospital10-12-[facility]23 Hospital Discharge instructions* Discharge Instructions* Laurel Serrano MD, PhD - 09/10/2023 12:22 PM EDT You were admitted to the hospital for fevers. At first we did not know what was causing the fevers.We did many tests including imaging, lab work, [...] a sleep doctor. You will need to hop picker the oxygen concentrator when you leave [...] your fist check on Thursday, September 14! * Discharge Instr - Activity* Laurel Serrano MD, PhD - 09/10/2023 12:23 PM EDT Resume previous activity as tolerated. You will be wake after the hospitalization, but is importantto continue to try to move every day. * Discharge Instr - Diet* Laurel Serrano MD, PhD - 09/10/2023 12:23 PM EDT Resume your previous diet. Try to eat a good variety of foods and focus on healthy foods. documented in this encounterWayne Hospital10-03-2023 Consult note* Izzy Loera MD - 09/01/2023 12:26 PM EDTAssociated Order(s): IP CONSULT TO PULMONOLOGY Pulmonary Medicine Inpatient Consultation Reason for Consultation: bronch for infectious workup Requesting Physician: Dr. Prince Pulmonary Attending Physician: Dr. Diaz CURRENT HOSPITALIZATION: Admit Date: 08/28/[address] [facility] LOS: 4 days Impression/Recommendations: George Styles [...] Recommendations: - Plan to bronch tomorrow morning. NPO@SD, order placed - would repeat HIV, last [...] short period of time. 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 Other histories as documented in [...] Diaz MD Pulmonary and Critical Care Medicine * Liam Julian MD - 08/29/2023 9:16 AM EDTAssociated Order(s): IP CONSULT TO INFECTIOUS DISEASE INFECTIOUS [...] mL/min (A) (by C-G formula based on SCrof 1.55 mg/dL (H)). RECOMMENDATIONS Diagnostics 1. Follow-up [...] follow-up with reported fevers that had started on07/23/2023, which have been daily and measured as high as 102F. Serial labs (including EBV, CMV, andBK) have been unremarkable thus far. Given presentation [...] had any ill contacts. He traveled to [place] to [facility] in May. REVIEW OF SYSTEMS A [...] DAY SURGERY MAIN OR KIDNEY TRANSPLANT W/O WALKER RIVER NEPHRECTOMY N/A 04/12/2020 Laterality: N/A; Surgeon: [...] Alamo MD I can be reached via [employer] secure message (NeoReach) or Pager #[phone] documented in this encounterWayne Hospital09-29-2023 History and physical note* Aric Turner MD - 08/28/2023 6:14 PM EDT Images from the original note were not included. Internal Medicine Admission History & Physical Patient: George Styles, 1970, [id number] Physician: Aric Turner MD, PGY1, Pager #[phone], TM service Date of face to face patient encounter: 08/28/2023. Chief Complaint: Fevers, cough, night sweats History Of Present Illness: George Styles is a 53 y.o. 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 [...] So he went to see the transplant corporate legal intern. He was found elevated Cr and [...] Appetite is ok now. Urine is about 5803-8309 ml every day. Stool every day, no [...] DAY SURGERY MAIN OR KIDNEY TRANSPLANT W/O WALKER RIVER NEPHRECTOMY N/A 04/12/2020 Laterality: N/A; Surgeon: [...] office. Medication can be purchased over the countergoing forward. 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 His post-transplant course was noteworthy for nephrostomy tube (05/17/2022-09/10/2022) dueto concern for ureteral stone. He presents as a direct admission for fever, cough, for infectious workup Cough, Fever, Night Sweats: Patient is compliance with his immunosuppressive medicine, recently visit in PCP did CBC WBC in normal range and CMV, EBV, BK al negative. COVID and other respiratory virus has been done recently allshowed negative. Concern for other optimistic infection under the immunosuppressive setting. - CXR - UA - Blood cultures pending - Influenza swab - immunocompromised respiratory panel all negative - Covid testing negative - Urinary histoplasmosis - PJP, candid PCR - Farm Helper transplant ID Acute Kidney Injury with Kidney [...] losartan 50mg BID CAD: non-obstructive CAD on [facility] 2018. - continue aspirin 81mg [...] Erma Roe, Fidelina Pierson, Luisa Steven, Renee Freed, Daisha Max Diet Clerk: José Miguel Garnica All Txt: 04/13/2020 (Kidney), [...] crush, or open doses of this medication. Contactpharmacy if altered dose or route needed. LABS [...] results found for: CYCLOSPORIN , CYCLOSPORIN2 , [id number] , CYCLORAND No results found for: SIROLIMUS [...] Rest as above. Kevin Prince MD Pager [phone] documented in this encounterU [facility]09-29-[facility] History of Present illness Narrative* Rochelle Ribeiro RN - 08/28/2023 2:15 PM EDT Images from the original note were not included. 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 Diet Clerk: Anayeli Burt Date of Liver Transplant: 04/13/2020 (Kidney), 04/13/2020 (Liver) 3 years 4 months post Liver/Kidney Transplant Primary Disease: Hypertensive Nephrosclerosis Transplant Assistant Boiler Operator: Erma Roe/ Daisha Max Primary Care [...] Tacrolimus, Tamsulosin HCl, amLODIPine, aspirin, and faMOTIdine None Specified Preferred Lab: [facility] Change in lab frequency / new [...] to call and schedule transplant follow up * Mainor Busby RN - 08/28/2023 2:15 PM EDT Images from the original note were [...] hours. ADDITIONAL INFORMATION: None Specified, [id number] [place] [address] - [address] [facility] [address] [facility] [address] [facility] [address] [place] [address] [facility][id number] [place] [address] [address] [facility] [address] [place] [id number] [facility] [address], [address] [place] [address] ROS and SCREEN: Chest Pain: negative Cough: [...] QUESTIONS OR CONCERNS TO ADDRESS WITH PHYSICIAN: * LU Ovalle - 08/28/2023 2:15 PM EDT I saw George Styles at the [facility] on 08/28/2023. Patient is a 53 y.o. 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 His chilkoot kidney disease was noted to be presumed hepato-renal syndrome. His post- transplant course was noteworthy for good allograft function. [...] wee negative. Since the symptoms continued, he wentto the local ED on 08/20/2023. All the investigations done there were negative as well; CXR, CMV andEBV PCR including. White blood count remained normal. [...] tablet daily. Last refill from our office. Medicationcan be purchased over the counter going forward. [...] DAY SURGERY MAIN OR KIDNEY TRANSPLANT W/O WALKER RIVER NEPHRECTOMY N/A 04/12/2020 Laterality: N/A; Surgeon: [...] alcohol per week. He reports that he doesnot use drugs. Physical Exam: Blood pressure 106/41, [...] you have any questions. Steve Munoz MD photocopier technician Division [facility] documented in this encounterOSU [facility]09-29-[facility]23 Instructions* Patient Instructions* Mainor Busby RN - 08/28/2023 2:15 PM EDT - Admission for fevers, cough, and night sweats documented in this encounterOSU [facility]vue [facility]09-20-2023 History of Present illness Narrative* Andressa Gutiérrez - 08/19/2023 2:52 PM EDT [facility] RX OUTREACH ADVANCED: Call Information: Date and Time of Contact: 08/19/2023 2:52 PM Method of Contact: By Phone Contact Type: Prescriptions Contactor: [facility] OP Contactee: Patient Shipping/Pickup: Medicare B Refill?: No Medication Name: Tacro 0.5mg Delivery Method: Air Delivery Location: Home Signature Required: No Mailing/Pickup Date: 08/25/2023 Shipping Address: [address] [place] [address] Contact Info: Specialty ([place]) [phone] [facility] [phone] [facility] [phone] [place] [phone] Bedside Delivery ([facility]) [phone] documented in this encounterOSU [facility]07-14-2023 History of Present illness Narrative* JEANNA Hess - 06/12/2023 3:00 PM EDT Images from the original note were not included. George Styles is a 53 y.o. 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 The HLA mismatch was 1A,2B, 1DR. No longer follows with a local corporate legal intern. History of Present Illness: Since George was most recently evaluated in clinic on 06/12/2022, he has not had any hospitalizations,surgeries, or infections. Notable(s) since transplant: 1. 05/17/2022-09/10/2022 [...] tablet daily. Last refill from our office. Medicationcan be purchased over the counter going forward. [...] and lab results. Rebeca Gutierrez MSN, RN, CAR TOP BOLTER-BC, CCTN Certified Nurse Practitioner [facility] [place] [address] [facility] [address] documented in this encounterOSU [facility]07-14-2023 Instructions* Patient Instructions* JEANNA Hess - 06/12/2023 3:00 PM EDT No change in immunosuppression. documented in this encounterOSU [facility]vue Hospital07-12-2023 History of Present illness Narrative* Anne Choudhury - 06/10/2023 3:16 PM EDT [facility]REACH AD[facility]ANC[facility]: Call Information: Method of Contact: By Phone Contact Type: Prescriptions Contactor: [facility] OP Contactee: Patient Contact Outcome: Left message Shipping/Pickup: Medication Name: Mycophenolate sod 180 mg Contact Info: Specialty ([place]) [phone] [facility] [phone] [facility] [phone] David [phone] Bedside Delivery ([facility]) [phone] * Negra Burks - 06/10/2023 3:16 PM EDT [facility] RX OUTREACH ADVANCED: Call Information: Date and Time of Contact: 06/12/2023 9:43 AM Method of Contact: By Phone Contact Type: Prescriptions Contactor: [facility] OP Contactee: Patient Contact Outcome: Left message and Follow-up Shipping/Pickup: Medicare B Refill?: No Medication Name: Myco 180 Contact Info: Specialty ([place]) [phone] Jakob [phone] [facility] [phone] David [phone] Bedside Delivery ([facility]) [phone] * Mikaela Pierre - 06/10/2023 3:16 PM EDT [facility] RX OUTREACH ADVANCED: Call Information: Date and Time of Contact: 06/12/2023 10:08 AM Method of Contact: By Phone Contact Type: Prescriptions Contactor: [facility] OP Contactee: Patient Shipping/Pickup: Medicare B Refill?: No Medication Name: Mycophenolate 180mg DR Delivery Method: Air Delivery Location: Home Signature Required: No Mailing/Pickup Date: 06/17/2023 Shipping Address: [address] [place], [place] [address] Contact Info: Specialty ([place]) [phone] [facility] [phone] [facility] [phone] David [phone] Bedside Delivery ([facility]) [phone] documented in this encounterWayne Hospital04-13-2023 History of Present illness Narrative* Anne Choudhury - 03/12/2023 10:34 AM EDT [facility] RX OUTREACH ADVANCED: Call Information: Date and Time of Contact: 03/12/2023 10:34 AM Method of Contact: By Phone Contact Type: Prescriptions Contactor: [facility] OP Contactee: Patient Shipping/Pickup: Medicare B Refill?: No Medication Name: Mycophenoloate sod 360 mg prednisone 5mg Delivery Method: Air Delivery Location: Home Signature Required: No Mailing/Pickup Date: 03/16/2023 Shipping Address: [address] [place] [address] Contact Info: Specialty ([place]) [phone] [facility] [phone] [facility] [phone] David [phone] Bedside Delivery ([facility]) [phone] * Andressa Gutiérrez - 03/12/2023 10:34 AM EDT [facility] RX OUTREACH ADVANCED: Call Information: [...] Date: 03/19/2023 Shipping Address: [address] [facility] 179 Contact Info: Specialty ([place]) [phone] [facility] [phone] [facility] [phone] David [phone] Bedside Delivery ([facility]) [phone] documented in this encounterWayne Hospital04-11-2023 History of Present illness Narrative* Vladislav Mcnally - 03/10/2023 11:58 AM EDT [facility] RX OUTREACH ADVANCED: Call Information: Date and Time of Contact: 03/10/2023 12:00 PM Method of Contact: By Phone Contact Type: Prescriptions Contactor: [facility] OP Contactee: Patient Contact Outcome: Left message and Call back later Shipping/Pickup: Medication Name: Mycophenolate ; Tacrolimus Contact Info: Specialty ([place]) [phone] [facility] [phone] [facility] [phone] [facility] [phone] Bedside Delivery ([facility]) [phone] documented in this encounterOSU [facility]04-11-2023 History of Present illness Narrative* Vladislav Mcnally - 03/10/2023 11:58 AM EDT [facility]REACH ADVANC[facility]: Call Information: Date and Time of Contact: 03/10/2023 12:00 PM Method of Contact: By Phone Contact Type: Prescriptions Contactor: [facility] Contactee: Patient Contact Outcome: Left message and Call back later Shipping/Pickup: Medication Name: Mycophenolate ; Tacrolimus Contact Info: Specialty ([place]) [phone] [facility] [phone] [facility] [phone] [facility] [phone] Bedside Delivery ([facility]) [phone] * Anne Choudhury - 03/10/2023 11:58 AM EDT [facility]: Call Information: Date and Time of Contact: 03/12/2023 10:32 AM Method of Contact: By Phone Contact Type: Prescriptions Contactor: [facility] Contactee: Patient Contact Outcome: Left message Shipping/Pickup: Medication Name: Mycophenolate sodium (MYFORTIC) 180 MG Tab tacrolimus 0.5 mg Contact Info: Specialty ([place]) [phone] Jakob [phone] [facility] [phone] David [phone] Bedside Delivery ([facility]) [phone] documented in this encounter[facility] History of Present illness Narrative* Daisha Max DO - 01/16/2023 9:40 AM EST -Referring Provider for today's consult: Daisha Max [...] DAY SURGERY MAIN OR KIDNEY TRANSPLANT W/O [place] NEPHRECTOMY N/A 04/12/2020 Laterality: N/A; Surgeon: [...] tablet daily. Last refill from our office. Medicationcan be purchased over the counter going forward. [...] pain, dyspnea on exertion, paroxysmal nocturnal dyspnea, peripheraledema. PULMONARY: Negative for any shortness of breath, wheezing, GASTROINTESTINAL: Negative for any abdominal pain, nausea, vomiting, bright red blood per rectum, melena. GENITOURINARY: Negative for any dysuria, hematuria, incontinence. INTEGUMENTARY: Negative for any rashes, cuts, insect bites. RHEUMATOLOGIC: Negative for any joint pains, photosensitive rashes, history of vasculitis or kidneyproblems. HEMATOLOGIC: Negative for any abnormal bruising, frequent [...] a normal S1/S2, without any appreciable murmurs, rubsor gallops. Pulmonary: Normal breath sounds, without any appreciable crackles, wheezing or rhonchi. No increased work of breathing. Abdominal: Well healed chevron scar. Soft, nontender, nondistended with normal bowel sounds withoutany appreciable ascites. +incisional hernia which is easily [...] 0.3 12/29/2022 Explant Pathology Pathologic Diagnosis A. [place] liver, orthotopic liver transplant resection (1458 gram): [...] A/P with IV contrast (06/27/2022): 1. Both chilkoot kidneys are atrophic with improvement in right-sided [...] frequent nighttime urination, etc). Daisha Max DO [employer] Police Officer Gastroenterology, Hepatology and Nutrition [facility] [place] Pager: [phone] * José Miguel Garnica RN - 01/16/2023 9:40 AM EST Images from the original note were not included. 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 Diet Clerk: Anayeli Burt Date of Liver Transplant: 04/13/2020 (Kidney), 04/13/2020 (Liver) 2 years, 8 months post Liver/KidneyTransplant Primary Disease: Hypertensive Nephrosclerosis Transplant Assistant Boiler Operator: Steve Munoz Primary Care physician: Zuly [...] levels: No results found for: CYCLOSPORIN, CYCLOSPORIN2, AMKGUMMLW8CS, CYCLORAND No components found for: CYCLOSPORINE, 2HR [...] Cr stable 1.02 Last tac level 5.6 * José Miguel Garnica RN - 01/16/2023 9:40 AM EST Images from the original note were not [...] hours. ADDITIONAL INFORMATION: None Specified [id number] [place] [address] - [address] [facility] [address] [facility] [address] [facility] [address] [facility] [address] [id number] [place] [address] [address] [facility] [address] [facility] [address] [facility] Jakob [address], [place] [address] [facility] [address] ROS and SCREEN: Chest Pain: negative Cough: negative SOB: negative Abd Pain: negative Nausea: negative Vomiting: negative Diarrhea: negative Constipation: negative Dysuria: negative Edema: negative Tremors: negative Headaches: negative Wound issues: negative Alcohol consumption: no Cigarette smoking, smokeless tobacco or vaping/e-cigarette use: no Marijuana (any form), CBD oil or street drug use: no QUESTIONS OR CONCERNS TO ADDRESS WITH PHYSICIAN: documented in this [facility]02-17-2023 Instructions* Patient Instructions* José Miguel Garnica RN - 01/16/2023 9:40 AM EST - Labs Every 2 months - Discuss night time urination with your PCP - Schedule Colonoscopy through PCP - Follow up in 1 year documented in this [facility]10-12-2022 History of Present illness Narrative* Ryan Yepez MD - 09/10/2022 10:10 AM EDT UROLOGY CLINIC NOTE Reason for Appointment: BPH with LUTS HPI: Patient is a 52 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 Nephrostomy tube placed 05/17/22 due to FAYE.Last Cr down to 1.03 on 07/03. Unclear origin of FAYE and possible obstruction. Concern for possible renal vs ureteral stone when admitted to the hospital Nephrostogram on 05/20/22 showed a patent transplant ureter down to the bladder without filling defects. CT scans are difficult to follow the entirelength of the transplant ureter. No definitive stones seen. Patient did well with clamping trial of his nephrostomy tube without recurrent hydronephrosis. Repeat nephrostogram on 07/07 without filling defects and no hydronephrosis. Some reflux up the chilkoot right ureter but good drainage of both transplant and chilkoot ureter to the bladder. Nephrostomy tube was [...] transplant, orthotopic (N/A, 04/12/2020); kidney transplant w/o chilkoot nephrecto my (N/A, 04/12/2020); and placement nephrostomy catheter percutaneous [...] week. He reports that he does not usedrugs. Family History: He family history includes Breast Cancer in his paternal aunt; Diabetes in his brother, father, maternal aunt, maternal grandmother, and mother; Heart Disease - Other in his brother, father, maternalgrandfather, maternal grandmother, mother, paternal grandmother, and sister; Hypertension in his brother, father, maternal grandfather, maternal grandmother, mother, and paternal aunt; Lung Cancer inhis maternal grandfather and maternal grandmother; Stroke in his father and mother. Review of Systems Constitutional: Negative for fever, chills, weight loss, weight gain and malaise/fatigue. Eyes: Negative for blurred vision and eye redness. Cardiovascular: Negative for chest painRespiratory: negative shortness of breath Gastrointestinal: Negative for , diarrhea, constipation Genitourinary: See [place] Neurological: Negative for headaches. Lymph/Heme: Negative for [...] x 4, Normal strength. No edema. Skin: [place], warm, and dry. There are no [...] and no hydronephrosis. Some reflux up the chilkoot right ureter but good drainage of both transplant and chilkoot ureter to the bladder. Nephrostomy tube was [...] Ryan Yepez MD 09/10/22 documented [facility] this [facility] History of Present illness Narrative* Tati Langston LPN - 07/07/2022 2:10 PM EDT Patient is here today for a right [...] receptionist where they made a follow up. * Ryan Yepez MD - 07/07/2022 2:10 PM EDTAssociated Order(s): NEPHROSTOMY TUBE REMOVAL Post-Procedure Diagnose(s): Other [...] 2019. Nephrostomy tube placed 05/17/22 due to FAYE.Last Cr down to 1.2. Unclear origin of [...] to have transplant ureter with anastomosis to chilkoot right ureter. Nephrostogram without filling defects and no hydronephrosis. Some reflux up the chilkoot right ureter but good drainage of both transplant and chilkoot ureter to the bladder. Nephrostomy tube was removed without issue. Patient does have some sensation of incomplete bladder emptying and occasional sensation in his right flank. PVR today was 33cc. Will re-evaluate urinary symptoms at next appointment. --continue Flomax --RTC in one month flow flow/PVR/IPSS Patient to call with any additional questions or concerns. Ryan Yepez MD 07/07/22 documented in this encounterWayne [facility]07-29-2022 History of Present illness Narrative* Ryan Yepez MD - 06/27/2022 2:40 PM EDT UROLOGY CLINIC NOTE Reason for Appointment: possible [...] FAYE and flank pain. Unclear origin of FYAE and possible obstruction. Concern for possible renal [...] transplant, orthotopic (N/A, 04/12/2020); kidney transplant w/o chilkoot nephrecto my (N/A, 04/12/2020); and placement nephrostomy catheter percutaneous [...] Disease - Other in his brother, father, maternalgrandfather, maternal grandmother, mother, paternal grandmother, and sister; Hypertension in his brother, father, maternal grandfather, maternal grandmother, mother, and paternal aunt; Lung Cancer inhis maternal grandfather and maternal grandmother; Stroke in his father and mother. Review of Systems Constitutional: Negative for fever, chills, weight loss, weight gain and malaise/fatigue. Eyes: Negative for blurred vision and eye redness. Cardiovascular: Negative for chest painRespiratory: negative shortness of breath Gastrointestinal: Negative for , diarrhea, constipation Genitourinary: See [place] Neurological: Negative for headaches. Lymph/Heme: Negative for [...] x 4, Normal strength. No edema. Skin: [place], warm, and dry. There are no [...] male with a DDRT to the [facility] in 2019. Nephrostomy tube placed 05/17 [...] will plan for nephrostomy removal in about 1week. Will f/u on ordered CT scan to [...] questions or concerns. Ryan Yepez MD 06/27/22 * Makenzie Coelho LPN - 06/27/2022 2:[address] yepez patient needed nephrostomy tube cap off, teach him how to flush it and give him one new bag to take home. 5ml of 0.9 NS flushed without difficulty. Nephrostomy tube capped off. Supplies given to patient. Patient voice understanding the instructions on how to flush, how to cap offand how to place a new bag if needed. documented in this encounterOS[facility]07-29-2022 History and physical note* JEANNA Padilla - 06/27/2022 10:40 AM EDT Patient was evaluated in clinic as a nurse visit. Please refer to Rena Brewster's note. [facility] Work Phone: [phone]) 891-365707-29-2022 History and physical note* JEANNA Padilla - 06/27/2022 10:40 AM EDT Patient was evaluated in clinic as a nurse visit. Please refer to Rena Brewster's note. documented in this encounterOS[facility]-29-2022 History of Present illness Narrative* Rena Brewster RN - 06/27/2022 10:40 AM EDT TEACHING REGARDING TX NEPH COMPLETED-NEPH TUBE SITE DRY AND INTACT-CLEAR YELLOW URINE IN THE BAG-INSTRUCTED ABOUT FLUSHING, BAG CHANGING ETC. NUMEROUS QUESTIONS ASKED AND ANSWERED-VERBALIZED UNDERSTANDING documented in this encounterOSU [facility]07-20-2022 NoteEXAMINATION: CT ABD/PELVIS WO CON HISTORY: UNSPECIFIED COMPLICATION OF PROCEDURE, [...] mass or enlargement. KIDNEYS: Marked atrophy of chilkoot kidneys. Transplant right pelvic kidney with percutaneous [...] Electronically authenticated by: MÓNICA JIMENEZ Date: 2022-06-18 13:53[facility]07-14-2022 Instructions* Patient Instructions* Anayeli Christianson RN - 06/12/2022 3:21 PM EDT Do not take apart/disrupt nephrostomy tube system. Call Interventional Radiology and/or on-call transplant nurse [phone] for instruction if need to flush (clot or decreased flow). Take cipro 500mg, one tablet, twice per day for 14 days documented in this encounterWayne Hospital07-14-2022 History of Present illness Narrative* Roxanne Grimes RN - 06/12/2022 2:15 PM EDT Images from the original note were not included. 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 Diet Clerk: Anayeli Burt Date of Liver Transplant: 04/13/2020 (Kidney), 04/13/2020 (Liver) 2 year, 1 months post Liver/Kidney Transplant Primary Disease: Hypertensive Nephrosclerosis Transplant Assistant Boiler Operator: Steve Munoz Primary Care physician: Zuly [...] pain and elevated creatinine. Once the outside hospitalED where a Matias was placed without significant urine output. CT imaging there showed calcificationin the transplant kidney with some hydronephrosis. He was transferred here and started on ceftriaxone empirically for infection. His creatinine mauro dramatically to 8.0 on 05/17. He underwent percutaneous nephrostomy tube placement of the transplant kidney with significant urine output resulting andhis renal function improved quickly after this. He did pass a pea sized stone on 05/18 and this wassent to the lab for analysis. Results are pending at discharge. 2 urine cultures did not grow any ba cteria, and on discussion with the outside hospital [...] tube care and discharge with supplemental magnesium. * Anayeli Christianson RN - 06/12/2022 2:15 PM EDT Images from the original note were not included. Need labs today: 05/15/22-05/20/22 - Hospitalized 05/17/22 -elevated Cr, RLQ and flank pain - Non- obstructing kidney stone in renal graft at UPV. Percutaneous Neph Tube placed * Anayeli Christianson RN - 06/12/2022 2:15 PM EDT Images from the original note were not included. Nursing Assessment In Clinic (see Clinic Prep Sheet for additional information) Patient is accompanied to clinic today by: self Did patient require a wheelchair or medical transport for appointment: no Did ict help desk officer confirm current address and insurance information is [...] LAB AND PHARMACY: None Specified [facility] [place] [address] - [address] [facility] [address] [facility] [address] [facility] [address] [facility] [facility] [address] [id number] [place] [address] [address] [facility] [address] [facility] [address] [facility] [address], [place] [address] [facility] [address] ROS and SCREEN: Chest Pain: negative Cough: negative SOB: negative Abd Pain: negative Nausea: positive Vomiting: negative Diarrhea: negative Constipation: negative Dysuria: positive Edema: negative Tremors: negative Headaches: negative Wound issues: negative Pt has neph tube w clear yellow urine. States he had a small clot that he dislodged QUESTIONS OR CONCERNS TO ADDRESS WITH PHYSICIAN: * LU Ovalle - 06/12/2022 2:15 PM EDT I saw George Styles at the [facility] on 06/12/2022. Patient is a 52 y.o. 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 His post- transplant course was noteworthy for good allograft function. Hereports no interval health issues such as hospitalizations, [...] tablet daily. Last refill from our office. Medicationcan be purchased over the counter going forward. [...] Take daily at bedtime for foot and anklepain. losartan 50 MG tablet take 1 tablet [...] DAY SURGERY MAIN OR KIDNEY TRANSPLANT W/O [place] NEPHRECTOMY N/A 04/12/2020 Laterality: N/A; Surgeon: [...] male, s/p combined Liver-kidney transplant. 1. Immunosuppression: Geroge Styles is currently taking tacrolimus and mycophenolate [...] 2 weeks for now. He was instructed tocall the IR if he noticed any nephrostomy dysfunction. Patient is otherwise scheduled to follow up with me in 12 months. Lab draws will be every month. Please do not hesitate to contact me if you have any questions. Steve Munoz MD photocopier technician Division of Nephrology [facility] documented in this encounterOSU [facility]07-06-2022 Instructions* Patient Instructions* TATI GROVE - 06/04/2022 11:04 AM EDT Thank you for joining us for your neph tube follow up. We recommend routine exchange every 8-10 weeks. Please reach out at [phone] when it is time to set your next routine exchange. Thank you IR clinic documented in this encounterOSU [facility]07-06-2022 History of Present illness Narrative* Litzy Brice RN - 06/04/2022 10:40 AM EDT Met with patient today in IR clinic [...] Urology appointment.Number given to call to schedule exchange.Verbalized understanding. documented in this encounterU [facility]06-21-2022 Note* Nursing Notes - Leon Cook RN - 05/20/2022 7:04 PM EDT Patient discharged. AVS printed and reviewed with [...] time of his discharge. Leon Cook RN [facility]06-21-[facility] Miscellaneous Notes* Nursing Notes - Leon Cook RN - 05/20/2022 7:04 PM EDT Patient discharged. AVS printed and reviewed with [...] time of his discharge. Leon Cook RN * Plan of Care - Leon Cook RN - 05/20/2022 7:03 PM EDT Problem: Patient Care Overview Goal: Plan of [...] discharge/transition of care. Outcome: Adequate for Discharge * Nursing Notes - Leon Cook RN - 05/20/2022 2:01 PM EDT Tung Dillard MD R10 Rm [phone] Jensen Orellana Please let's have a clear order on how the nephrostomy site dressing need to be changed when the patient goes home so we provide teaching before his discharge Leon RN #[id number] Leon Cook RN * Plan of Care - Josey Braun RN - 05/19/2022 3:52 PM EDT Afternoon assessment completed at this time. No changes to previously charted assessment. StrainingUOP. Monitoring electrolytes. VSS. Pain controlled with current [...] Ongoing Goal: Interdisciplinary Rounds/Family Conf Outcome: Ongoing * Plan of Care - Liam Julian MD - 05/19/2022 12:44 PM EDT Discussed with [facility] re: possible urine culture performed at their facility. However, based on urinalysis completed at that time, which was only notable for hematuria, culture was not performed and sample no longer feasible for culture. Liam Julian MD Internal Medicine/Pediatrics, PGY-3 * Nursing Notes - Carolyn Isaac RN - 05/18/2022 8:03 PM EDT 2002: IHIS message sent to Dr Justyn Wen, regarding patient passing a small kidney stone, about the size of pea. MD notified. Stone left in strainer in pt bathroom. 0500: IHIS message sent to Dr W Wen, regarding pt BP 174/77. * Plan of Care - Mel Hampton RN - 05/18/2022 6:08 PM EDT Problem: Patient Care Overview Goal: Plan of [...] outcomes by discharge/transition of care. Outcome: Ongoing * Plan of Care - Елена Martinez MD - 05/18/2022 10:34 AM EDT Urology Plan of Care Note Pt is s/p PNT placement by IR into txp kidney. Please monitor for post- obstructive diuresis syndrome as below or if preferred can discuss with nephrology. Please monitor for post-obstructive diuresis. Post-obstructive diuresis should be expected if the patient voids over 1L in an 8h shift (not including the initial volume out from the patient's bladderon catheter placement). If post- obstructive diuresis is present: > Please make PO [...] becomes hyponatremic, NS should instead be used. * Nursing Notes - Carolyn Isaac RN - 05/18/2022 4:37 AM EDT IHIS chat sent to Dr Tray Quintana, regarding pt BP 190/86. Pt complaining of pain at site of neph tube. PRN pain medication given per order parameters. Pt denies any other symptoms at this time. notified and aware. * Nursing Notes - Danitza Thompson RN - 05/17/2022 12:28 PM EDT At 0900, I rounded with Dr. Gamez and Dr. Saldana. At that time I checked Mr. Styles's vital signs. His pulse oximeter was low and he was tachypneic. Verbal order at bedside to put nasal cannula on starting at 2liters oxygen and to provide incentive spirometer. * Nursing Notes - Meka Rincon RN - 05/17/2022 10:52 AM EDT Interventional Radiology procedure completed with IR Attending Dr. Heart / Dr. Le of percutaneous right nephrostomy tube placement transplant kidney 10.2 Fr Griffin acosta Pt tolerated procedure with moderate sedation local numbing agent . Transported to inpatient after phase I recovery. Post procedure orders in place. * Nursing Notes - Danitza Thompson RN - 05/16/2022 4:57 PM EDT At 1530, I text tung Gomez MD that patient has only had 25ml urine output in matias this afternoon. * Plan of Care - Evan Byrd MD - 05/16/2022 11:51 AM EDT Urology Plan of Care Mr. Styles is [...] with questions. Evan Byrd MD Urology, PGY-2 #[id number] * Certification - Nishant Gamez MD - 05/16/2022 11:20 AM EDT I certify that this patient requires inpatient services at this time. I anticipate the expected length of stay will include at least two midnights. Inpatient services are due to the following medicalconcerns Obstructive kidney stone. Plans for post hospitalization care will be discharge to home. * Plan of Care - Kallie Lorenzana RN - 05/16/2022 4:43 AM EDT No change from previous assessment. VSS/RA. Pain control with PRNs. Matias with little UOP overnight- urine pink tinged. Blood cx sent. Resting [...] supported Trust Relationship/Rapport: care explained choices provided * Nursing Notes - Kallie Lorenzana RN - 05/16/2022 2:29 AM EDT On admission to 0, a dual RN initial assessment of skin condition was performed by Kallie Lorenzana RN and Sheri Arguelles RN. Skin Assessment: WDL Jose Score: 20 LDA Added:N Kallie Lorenzana RN documented in this encounterWayne Hospital06-21-2022 Note* Plan of Care - Leon Cook RN - 05/20/2022 7:03 PM EDT Problem: Patient Care Overview Goal: Plan of [...] discharge/transition of care. Outcome: Adequate for Discharge [facility]06-21-20[facility] Note* Nursing Notes - Leon Cook RN - 05/20/2022 2:01 PM EDT Paged Vera Dillard MD R10 Rm 1006 Jensen Orellana Please let's have a clear order on how the nephrostomy site dressing need to be changed when the patient goes home so we provide teaching before his discharge Leon RN #[id number] Leon Cook RN [facility] History of Present illness Narrative* Yanira Her RPh,PharmD - 05/20/2022 12:01 PM EDT Images from the original note were not included. [facility] Note: [facility] the following discharge prescription(s): Medication reconciliation was completed with comparison to discharge reconciliation report. The prescription(s) will be delivered to the patient's bedside on 05/20/22. Total cost is $0. Yanira Her RPh,PharmD Specialty ([place]) [phone] [facility] [phone] [facility] [phone] [place] [phone] [place] [phone] Bedside Delivery ([facility]) [phone] * Maxi Pringle MD - 05/19/2022 12:32 PM EDT Attending I saw George Styles at the [facility] on 05/19/2022. I saw and independently [...] Evan Bennett MD 650 mg at 05/18/22 173 allopurinol (ZYLOPRIM) tablet 100 mg 100 mg Oral Daily Nishant Gamez MD 100 mg at 05/19/22 08 amLODIPine (NORVASC) tablet 5 mg 5 mg Oral Daily Evan Bennett MD 5 mg at 05/19/22 08 aspirin chewable tablet 81 mg 81 mg Oral Daily Evan Bennett MD 81 mg at 05/19/22 08 atorvastatin (LIPITOR) tablet 20 mg 20 mg [...] QHS Evan Bennett MD 400 mg at 05/18/22 2000 guaiFENesin (ROBITUSSIN) oral solution 400 mg 400 mg Oral Q6H PRN Evan Bennett MD heparin injection 5,000 Units 5,000 Units Subcutaneous Q8H Nishant Gamez MD 5,000 Units at 804 iodixanol (VISIPAQUE) injection 320 mg/mL for [facility]H [...] Daily Evan Bennett MD 0.4 mg at Lab Results Component Value Date SODIUM 141 [...] to obstruction. Volume and electrolyte status are acceptableand no immediate need for HD today. Given improvement with neph tube, we will sign off Resume home IS Follow-up with urology for ongoing management Maxi Pringle MD * Liam Julian MD - 05/19/2022 7:59 AM EDT Internal Medicine Daily Progress Note Patient: George Styles, 1970, [id number] Physician: Liam Julian MD, PGY-3, Pager #[phone], [id number] Subjective/Interval History: No acute events overnight. Passed [...] not look positive for infection. Will likely givea total of 5-7 days of ceftriaxone. May be able to discharge tomorrow, will need follow-up appointments with Urology, IR and will need to get set up with a 24 hour urine collection test if transplantnephrology still thinks appropriate. Daya Saldana MD (Peggy) Division of Hospital Medicine Pager [phone] * Maxi Pringle MD - 05/18/2022 7:39 AM EDT Attending I saw George Styles at the [facility] on 05/18/2022. I saw and independently [...] Q8H Nishant Gamez MD 5,000 Units at iodixanol (VISIPAQUE) injection 320 mg/mL for [facility] [...] Daily Evan Bennett MD 0.4 mg at 947 Lab Results Component Value Date SODIUM 139 [...] stones Can remove matias Maxi Pringle MD * Nishant Gamez MD - 05/18/2022 7:37 AM EDT Internal Medicine Daily Progress Note Patient: George Styles, 1970, [id number] Physician: Nishant Gamez MD, PGY2, Pager #[phone], [email or web address] Subjective/Interval History: Nephrostomy tube placed yesterday with a lot of urine output and significant improvement in creatinine. 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 Daya (Nunu) Jeff Saldana MD Division of Hospital Medicine Pager [phone] * Nishant Gamez MD - 05/17/2022 8:04 AM EDT Internal Medicine Daily Progress Note Patient: George Styles, 1970, [id number] Physician: Nishant Gamez MD, PGY2, Pager #[phone], [email or web address] Subjective/Interval History: Worsening creatinine this morning with [...] white blood cell count remains elevated at 16.Continue ceftriaxone but very low threshold to collect blood cultures and broaden to cefepime and vanco if he becomes unstable. Transplant Nephrology concerned that the patient may need dialysis due to worsening anion gap acidosis, decreasing bicarb and slowly elevating potassium and phosphorus. Wewill repeat his chemistry this afternoon. His fistula is still working to his knowledge. Daya (Aggie Saldana MD Division of Hospital Medicine Pager [phone] * Maxi Pringle MD - 05/17/2022 7:07 AM EDT Attending I saw George Styles at the [facility] on 05/17/2022. I saw and independently [...] Q8H Nishant Gamez MD 5,000 Units at lactated ringers IV solution Intravenous Continuous Nishant [...] Daily Evan Bennett MD 0.4 mg at Lab Results Component Value Date SODIUM 135 [...] other causes of ARF. Maxi Pringle MD * Kasandra Leigh RN - 05/16/2022 4:01 PM EDT Admission Screening for Discharge Planning Patient is here for FAYE and renal stone in patient with Hx of Kidney/Liver transplant 04/12/2020. Urology recommended empiric abx until urine culture returns. 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 Patient is expected to discharge home. Should discharge needs arise please place a consult order for case management. Appointment for Urology was sent for revue. Urology will call the patient with a follow up appointment. Note place on AVS for patient. Risk of Readmission: 8.6 Category Reference: High:16-100 Mod-High:10-16 Mod-Low: 5-10 Low: 0-5 * Rena Roa - 05/16/2022 3:24 PM EDT Renal Transplant US complete, report to follow. * BENJY Syed - 05/16/2022 11:29 AM EDT Introduced self and role of the pulmonary care nurse to patient. Provided emotional and spiritual support and the patient responded by sharing their experience and discussed the following: - Spirituality/Episcopal Affiliation: As a kid attended [employer] but not a strong identity now - Family support - pt's brothers live close by Broom Man provided: - Supportive presence - Active listening - Validation of feelings/emotions Patient encouraged to request a pulmonary care nurse as needed. Chaplains are available in-house 24 hours a day and 7 days a week. For urgent matters in [facility], please page [phone]. If the request is not urgent, please enter a consult. Consults are responded to within 24 hours. Angie Singh Md, [facility] Burn Unit and Transplant [place] [id number] [address] [facility] Broom Man Kirk [phone] [email or web address] 22/06 [facility] Pager [phone] 22/06 Pager ,[facility], and [place] 1500 22/06 David Pager [phone] 05/16/22 1129 Clinical Encounter Type Visited With Patient Visit Type Introduction Pastoral Time Spent 15 min Referral Other (See Comment) (Rounding) Spiritual Assessment Spiritual Observation Spirituality helpful;Identifies as (see comment) (Caodaism) Emotional Observation Coping well Hope Observation Hopeful and accepting Support Observation By Family Interventions Provided Active listening;Supportive presence Facilitated Verbalization of feelings;Sharing of life story;Identifying support system Explored Expectations Procurement Officer Education Procurement Officer Service Available Yes Educated Patient Outcomes Patient Outcomes Articulated purpose/meaning Plan of Care Continue Visiting PRN * Nishant Gamez MD - 05/16/2022 8:27 AM EDT Internal Medicine Daily Progress Note Patient: George Styles, 1970, [id number] Physician: Nishant Gamez MD, PGY2, Pager #[phone], [email or web address] Subjective/Interval History: Overall feeling okay this morning. [...] IR would like to monitor renal function andsee if it improves, if not, will likely need to be done this weekend so as to avoid further injury to his transplant kidney and potentially need to start dialysis. Continue IV fluids and tamsulosin, ceftriaxone for possible UTI while waiting on urinary cx. 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 [...] Supervision Transfer Assessment: Sit to Stand Transfer [place] Level: Sit->Stand: independent Skilled Intervention/Details: Sit->Stand: x1 from EOB Stand to Sit Transfer [place] Level: Stand->Sit: supervision Assistive Device: Stand->Sit: armed chair Skilled Rationale: Controlled descent for sitting, Verbal cues Gait/Functional Mobility: Gait Assessment [place] Level: Gait: supervision Assistive Device: Gait: gait belt Gait Distance (feet): 200 Gait Deviations Identified: decreased grace, decreased step length, decreased stride length Gait Skilled Rationale: verbal, upright posture Skilled Intervention/Details - Gait: Pt with steady gait without LOB or complaints of SOB. Stairs: Stairs Assessment [place] Level: Stair Negotiation: stand-by assist Assistive Device: Stair Negotiation: gait belt, left rail (ascending) Number of stairs: 9 Stairs Skilled Rationale: reciprocal pattern Outcome Score(s): CURRENT [facility] Basic Mobility Inpatient Short Form Turning over in bed: 4 - No Assistance Sitting/standing from chair: 4 - No Assistance Moving from lying on back to sittin - No Assistance Moving to and from bed to chair: 4 - No Assistance Walk in hospital room: 3 - A Little Assistance Climbing 3-5 steps with a railin - A Little Assistance CURRENT [facility] Mobility Raw Score: 22 CURRENT [facility] Mobility Functional Limitation/Modifier: 20.91% Currently Impaired in Basic Mobility- CJ Interventions: Assessment & Plan: Patient was [...] reported no concerns with discharging home with [place] support. Pt with no skilled acute PT [...] Therapy Services or patient discharge from the hospitalthis note represents the current Physical Therapy Discharge Summary. 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 IADL History IADLs: independent Primary Language: Thai Home Management Skills: independent Meal Prep Responsibility: [...] time to complete, Activity tolerance, Generalized weakness, Don/doffR sock, Don/doff L sock LE Dressing Skilled Rationale (Verbal/Tactile/Visual/Demonstration): Facilitate positioning, Technique of activity, Cues for [...] Assessment: Transfer Assessment: Sit to Stand Transfer [place] Level: Sit->Stand: independent Skilled Rationale: Cues for increased safety Skilled Intervention/Details: Sit->Stand: x1 EOB Stand to Sit Transfer [place] Level: Stand->Sit: supervision Assistive Device: Stand->Sit: gait belt, armed chair Skilled Rationale: Verbal cues, Controlled descent for sitting, Cues for increased safety Skilled Intervention/Details: Stand->Sit: cues for hand placement and controlled descent Functional Mobility: Functional Mobility [place] Level: Functional Mobility/Gait: stand-by assist Assistive Device: Functional Mobility/Gait: gait belt Functional Mobility Distance: Distance needed for limited community mobility Functional Mobility Deficits: Activity tolerance, Balance, Decreased step length, Generalized weakness Functional Mobility Skilled Rationale: Verbal cues, Facilitate postural control Skilled Intervention/Details - Functional Mobility/Gait: cues for upright posture Outcome Score(s): CURRENT -[facility] Daily Activity Inpatient Short Form Putting on/Taking Off Lower Body Clothin - A Little Assistance Bathin - A Little Assistance Toiletin - A Little Assistance Putting on/Taking Off Upper Body Clothin - No Assistance Groomin - No Assistance Eatin - No Assistance CURRENT -[facility] Activity Raw Score: 21 CURRENT -[facility] Activity Functional Limitation/Modifier: 32.79% Currently Impaired in Daily Activity- CJ Interventions: Assessment & Plan: Patient was [...] DAY SURGERY MAIN OR KIDNEY TRANSPLANT W/O [place] NEPHRECTOMY N/A 04/12/2020 Laterality: N/A; Surgeon: [...] individual plan of care. Medical complexity with functionaldeficits that necessitate two skilled therapy disciplines working [...] better reflect the patient's clinical status and thetreatment plan. Read and Co-signed by: Mel Norman OT, OTR/L License #: [id number] pager # [phone] 05/20/2022 Upon discontinuation of Acute Care Occupational Therapy Services or patient discharge from the hospital this note represents the current Occupational Therapy Discharge Summary. documented in this [facility]21[facility]2022 Hospital course Narrative* Nishant Gamez MD - 05/20/2022 11:45 AM EDT Discharge Summary Name: George Styles Age: 52 [...] tube. His kidney function peaked at 8.08 anddown trended at discharged to 1.10 which is his baseline. His immunosuppressants were initially helped but were restarted during admission. Additionally he was treated with ceftriaxone for 5 days forUTI. Losartan was held due to FAYE but [...] Saldana MD Division of Hospital Medicine p: [phone] f: [phone] CONSULTS DURING ADMISSION: IP CONSULT TO SURGERY - UROLOGY IP CONSULT TO NEPHROLOGY - TRANSPLANT (MEDICINE) IP CONSULT TO INTERVENTIONAL RADIOLOGY IP CONSULT TO PHYSICAL THERAPY IP CONSULT TO OCCUPATIONAL THERAPY IP CONSULT TO PHARMACY BEDSIDE DISCHARGE MED DELIVERY IMAGING / PROCEDURES / RESULTS: Should you require further information or copies of results or reports please contact [employer] @ [phone] LABS AT TIME OF DISCHARGE: Lab Results [...] HOME AT DISCHARGE: Zuly Kiana [address] Replaced By [facility] / [place] [address] MEDICATIONS: Discharge Orders CT ABDOMEN/PELVIS WITHOUT CONTRAST [...] CAPS Generic drug: docusate Follow-up: Zuly Bruno, RESEARCH ENGINEER [address] [facility] [address] Schedule an appointment as soon as possible for a visit Follow-up appointment with your, primary care physician within 7-10 days, after discharge. [address] [facility] [address] Follow up The department of [...] Dept Phone 06/04/2022 10:40 AM ERNESTO MACIEL [facility] Interventional Radiology Clinic [phone] 06/27/2022 1:30 PM CARLI BUSTAMANTE [facility] Department of Radiology Arrive at: Arrive to First Floor Registration Desk [phone] 06/27/2022 2:40 PM Ryan Yepez [facility] [place] Arrive at: Arrive to 2nd Floor, Registration [address] 10/31/2022 1:00 PM Steve Munoz [facility] Transplant [place] [facility] [phone] 01/16/2023 9:40 AM [facility] 3[facility] [phone] Associated attestation - Daya Saldana MD - [...] pain and elevated creatinine. Once the outside hospitalED where a Matias was placed without significant urine output. CT imaging there showed calcificationin the transplant kidney with some hydronephrosis. He was transferred here and started on ceftriaxone empirically for infection. His creatinine mauro dramatically to 8.0 on 05/17. He underwent percutaneous nephrostomy tube placement of the transplant kidney with significant urine output resulting andhis renal function improved quickly after this. He did pass a pea sized stone on 05/18 and this wassent to the lab for analysis. Results are pending at discharge. 2 urine cultures did not grow any ba cteria, and on discussion with the outside hospital [...] MD (Peggy) Division of Hospital Medicine Pager [phone] [facility] Discharge instructions* Discharge Instr - Wound Care* Giulia Cavazos RN - 05/20/2022 7:43 AM [...] be changed by Interventional Radiology. Please call [phone] to schedule this appointment and with any questions or concerns you may have regarding the nephrostomy tube. If you have questions or concerns, please call Interventional Radiology at SOMEONE FROM INTERVENTIONAL RADIOLOGY WILL CALL YOU FOR A FOLLOW UP IN THE CLINIC Giulia Cavazos RN Nurse Coordinator Interventional Radiology Interventional Radiology Outpatient scheduling documented in this [facility] Note* Plan of Care - Josey Braun RN - 05/19/2022 3:52 PM EDT Afternoon assessment completed at this time. No changes to previously charted assessment. StrainingUOP. Monitoring electrolytes. VSS. Pain controlled with current [...] Ongoing Goal: Interdisciplinary Rounds/Family Conf Outcome: Ongoing [facility]* Plan of Care - Liam Julian MD - 05/19/2022 12:44 PM EDT Discussed with [facility] re: possible urine culture performed at their facility. However, based on urinalysis completed at that time, which was only notable for hematuria, culture was not performed and sample no longer feasible for culture. Liam Julian MD Internal Medicine/Pediatrics, PGY-3 [facility]-19-[facility] Note* Nursing Notes - Carolyn Isaac RN - 05/18/2022 8:03 PM EDT 2003: IHIS message sent to Dr Justyn Wen, regarding patient passing a small kidney stone, about the size of pea. MD notified. Stone left in strainer in pt bathroom. 0500: IHIS message sent to Dr Justyn Wen, regarding pt BP 174/77. [facility]* Plan of Care - Mel Hampton RN - 05/18/2022 6:08 PM EDT Problem: Patient Care Overview Goal: Plan of [...] outcomes by discharge/transition of care. Outcome: [facility]ngoing [facility]* Plan of Care - Елена Martinez MD - 05/18/2022 10:34 AM EDT Urology Plan of Care Note Pt is s/p PNT placement by IR into txp kidney. Please monitor for post- obstructive diuresis syndrome as below or if preferred can discuss with nephrology. Please monitor for post-obstructive diuresis. Post-obstructive diuresis should be expected if the patient voids over 1L in an 8h shift (not including the initial volume out from the patient's bladderon catheter placement). If post- obstructive diuresis is present: > Please make PO [...] becomes hyponatremic, NS should instead be used. [facility] Work Phone: [phone] Note* Nursing Notes - Carolyn Isaac RN - 05/18/2022 4:37 AM EDT IHIS chat sent to Dr Tray Quintana, regarding pt BP 190/86. Pt complaining of pain at site of neph tube. PRN pain medication given per order parameters. Pt denies any other symptoms at this time. notified and aware. [facility]-18-[facility] Note* Nursing Notes - Danitza Thompson RN - 05/17/2022 12:28 PM EDT At 0900, I rounded with Dr. Gamez and Dr. Saldana. At that time I checked Mr. Styles's vital signs. His pulse oximeter was low and he was tachypneic. Verbal order at bedside to put nasal cannula on starting at 2liters oxygen and to provide incentive spirometer. [facility]-18-[facility] Note* Nursing Notes - Meka Rincon RN - 05/17/2022 10:52 AM EDT Interventional Radiology procedure completed with IR Attending Dr. Heart / Dr. Le of percutaneous right nephrostomy tube placement transplant kidney 10.2 Fr Griffin acosta Pt tolerated procedure with moderate sedation local numbing agent . Transported to inpatient after phase I recovery. Post procedure orders in place. [facility]* Nursing Notes - Danitza Thompson RN - 05/16/2022 4:57 PM EDT At 1530, I text chavad Kaitlynn Gomez MD that patient has only had 25ml urine output in matias this afternoon. [facility]-17-[facility] Note* Plan of Care - Evan Byrd MD - 05/16/2022 11:51 AM EDT Urology Plan of Care Mr. Styles is [...] with questions. Evan Byrd MD Urology, PGY-2 #[id number] [facility] Work Phone: 1(981) 594-794406-17-2022 Note* Certification - Nishant Gamez MD - 05/16/2022 11:20 AM EDT I certify that this patient requires inpatient services at this time. I anticipate the expected length of stay will include at least two midnights. Inpatient services are due to the following medicalconcerns Obstructive kidney stone. Plans for post hospitalization care will be discharge to home. [facility]-17-20[facility] Consult note* Maria De Jesus Pollock MD, PhD - 05/16/2022 9:37 AM EDTAssociated Order(s): IP CONSULT TO NEPHROLOGY - TRANSPLANT (MEDICINE) I saw George Styles at the [facility] on 05/16/2022. Reason for Consultation: kidney stone and FAYE; LK transplant 2019 on tac/cellcept. Held them on admission last doses eveningof 05/13 History of Present Illness: George Styles is a 52 y.o. male who we have been consulted to see on 05/16/2022. 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 Hispost transplant course was complicated by delayed graft [...] ED where he was given flomax and senthome. Winifrede better but noticed more pain and decreased [...] tablet daily. Last refill from our office. Medicationcan be purchased over the counter going forward. 30 tablet 0 Past Week at Unknown time atorvastatin 20 MG tablet Take 1 tablet by mouth at bedtime. Further refills to be provided by PCP's office. 30 tablet 3 05/14/2022 at Unknown time docusate 100 MG capsule Take 2 capsules by mouth every 12 hours. 120 capsule 0 05/14/2022 at Unknowntime faMOTIdine 20 MG tablet Take 20 mg by mouth 2 times daily. 05/14/2022 at Unknown time gabapentin 100 MG capsule Take 400 mg by mouth at bedtime. Take daily at bedtime for foot and anklepain. 05/14/2022 at Unknown time losartan 50 MG [...] creatinine trends. High suspicion for nephrolitiasis as etiologyfor acute rise in serum creatinine and oliguria. Even if small stone, it can completely obstruct the tract, especially if debri and mucous around that might not be seen in CT. Recommend reaching backto urology to see patient again today. Recommend nephrostogram and neph tube placement to drain thetransplant kidney. 3. Hypertension: Stable BP here so [...] best assessment and recommendations. Maxi Pringle MD [facility] Work Phone: 1([phone]) 155-634206-17-2022 Consult note* Maria De Jesus Pollock MD, PhD - 05/16/2022 9:37 AM EDTAssociated Order(s): IP CONSULT TO NEPHROLOGY - TRANSPLANT (MEDICINE) I saw George Styles at the [facility] on 05/16/2022. Reason for Consultation: kidney stone and FAYE; LK transplant 2019 on tac/cellcept. Held them on admission last doses eveningof 05/13 History of Present Illness: George Styles is a 52 y.o. male who we have been consulted to see on 05/16/2022. 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 Hispost transplant course was complicated by delayed graft [...] ED where he was given flomax and senthome. Winifrede better but noticed more pain and decreased [...] tablet daily. Last refill from our office. Medicationcan be purchased over the counter going forward. 30 tablet 0 Past Week at Unknown time atorvastatin 20 MG tablet Take 1 tablet by mouth at bedtime. Further refills to be provided by PCP's office. 30 tablet 3 05/14/2022 at Unknown time docusate 100 MG capsule Take 2 capsules by mouth every 12 hours. 120 capsule 0 05/14/2022 at Unknowntime faMOTIdine 20 MG tablet Take 20 mg by mouth 2 times daily. 05/14/2022 at Unknown time gabapentin 100 MG capsule Take 400 mg by mouth at bedtime. Take daily at bedtime for foot and anklepain. 05/14/2022 at Unknown time losartan 50 MG [...] creatinine trends. High suspicion for nephrolitiasis as etiologyfor acute rise in serum creatinine and oliguria. Even if small stone, it can completely obstruct the tract, especially if debri and mucous around that might not be seen in CT. Recommend reaching backto urology to see patient again today. Recommend nephrostogram and neph tube placement to drain thetransplant kidney. 3. Hypertension: Stable BP here so [...] best assessment and recommendations. Maxi Pringle MD * Stephanie Tomas MD - 05/15/2022 7:02 PM EDTAssociated Order(s): IP CONSULT TO SURGERY - UROLOGY [...] states he went to his local ED [place] and he was put on Flomax and he did improve. Pt states last night he was unable to void with severe right sided abd pain. Pt states nausea and no vomiting or fevers. Pt states he went back to [place] ED at 0100 and they placed a matias. After matias placed,no sig urine output recorded. CT imaging obtained at [facility] with new calcification in the right transplant lower pole vs UPJ and mild right renal edema, no clear hydronephrosis Transplant performed at [facility]. His post transplant course was complicated by delayed graft function and he required iHD until 04/26/2020. Last seen in clinic 12/2021 and noted to have good graft functionat that time. No previous Urologic Hx No [...] orthotopic (N/A, 04/12/2020); and kidney transplant w/o chilkoot nephr ectomy (N/A, 04/12/2020). 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 The chilkoot kidneys are progressively atrophic bilaterally compared to [...] of 06/14/2020 are no longer present. The chilkoot distal right ureter is decompressed beyond this [...] with surgical history for renal graft and chilkoot right urinary drainage, as a discrete ureteroneocystostomy is not identified, and the graft may be draining via a ureteroureterostomy. Urology consultation recommended. 3. The chilkoot kidneys are bilaterally atrophic, with right renal sinus calcifications consistent with nonobstructing right chilkoot renal calculi up to 6 mm. Normal [...] PGY-3, Department of Urologic Surgery Pager #: [phone] Associated attestation - Ryan Yepez MD - 05/16/2022 12:23 PM EDT I saw and independently examined this patient today. I discussed my findings and the therapeutic plan with the resident. I agree with the their history, physical examination, and medical decisions asoutlined. In addition: Patient with hx of urolithiasis [...] intervention --may continue flomax [facility]* Plan of Care - Kallie Lorenzana RN - 05/16/2022 4:43 AM EDT No change from previous assessment. VSS/RA. Pain control with PRNs. Matias with little UOP overnight- urine pink tinged. Blood cx sent. Resting [...] Response to Acute Pain Flowsheets (Taken 05/16/2022 044) Supportive Measures: active listening utilized decision-making supported Trust Relationship/Rapport: care explained choices provided [facility]-17-20[facility] Note* Nursing Notes - Kallie Lorenzana RN - 05/16/2022 2:29 AM EDT On admission to [facility], a dual RN initial assessment of skin condition was performed by Kallie Lorenzana RN and Sheri Arguelles RN. Skin Assessment: WDL Jose Score: 20 LDA Added:N Kallie Lorenzana RN [facility]06-16-2022 Emergency department Note* Karlie Bean RN - 05/15/2022 11:14 PM EDT Report given to Kallie RN at [facility] Emergency department Note* Karlie Bean RN - 05/15/2022 11:14 PM EDT Report given to Kallie RN at [facility] * Nisha Gardiner RN - 05/15/2022 7:02 PM EDT Bladder scan with Dr Villatoro at bedside, 14ml noted * Nisha Gardiner RN - 05/15/2022 6:[address] Schneider concerning no urine output via matias catheter. * Gian Villatoro MD - 05/15/2022 6:01 PM EDT ED Attending George Styles has a past medical history of Acute renal failure, CAD (coronary artery disease), Cirrhosis, Dialysis patient, End stage renal disease (06/01/2018), Essential hypertension, benign, Hepaticencephalopathy, History of blood transfusion, and Liver cirrhosis. Presents with a chief complaint of kidney stone and diagnosed Thursday and was sent home with flomax. He went back to that ED and found to have a 6mm stone that is obstructing. He had a matias catheter placed and transferred here forfurther evaluation. He has BP 140/66 Pulse 78 [...] discussed the history and examination with the residentand agree with the plan of care. Gian Villatoro MD 05/15/222003 * Nisha Gardiner RN - 05/15/2022 5:[address] Schneider made aware of only 30 ml urine via matias since arrival to room. * Matt Schneider MD - 05/15/2022 4:38 PM EDT dEPARTMENT of Emergency Medicine CHIEF COMPLAINT Kidney [...] where they put a Matias and did aCT scan. It shows a 6 mm right [...] DAY SURGERY MAIN OR KIDNEY TRANSPLANT W/O WALKER RIVER NEPHRECTOMY N/A 04/12/2020 Laterality: N/A; Surgeon: [...] tablet daily. Last refill from our office. Medicationcan be purchased over the counter going forward. [...] Take daily at bedtime for foot and anklepain. losartan 50 MG tablet take 1 tablet [...] obstructive stone that is infected and FAYE. Physicalexam is remarkable for tenderness to palpation over [...] the etiology of today's presentation. They recommend admissionfor medical management and possible nephrostomy tube by [...] any incorrections. Matt Schneider MD Resident 05/15/222030 * Lynn Rutherford RN - 05/15/2022 2:15 PM EDT Pt arrives from [facility] with kidney stones. Pt states he had right lower abd pain and right flank pain with blood in his urine since Thursday. Pt states he went to his local ED [place] andhe was put on Flomax and he did improve. Pt states last night he was unable to void with severe right sided abd pain. Pt states nausea and no vomiting or fevers. Pt states he went back to [place] EDat 010 and they placed a matias and CT scan completed and multiple kidney stones noted. Pt sent to [facility] ED as he had liver and kidney transplant in 03/2020. [facility] History and physical note* Evan Bennett MD - 05/15/2022 9:18 PM EDT Internal Medicine Admission History & Physical Patient: George Styles, 1970, [id number] Physician: Evan Bennett MD, PGY1, Pager #[phone], GM 4 service Date of face to face patient encounter: 05/15/22 . Chief Complaint: Kidney Stones History Of Present Illness: George Styles is a 52 y.o. male with a history of alcoholic cirrhosis (alcohol), ESRD (Htn) s/p kidneytransplant and liver transplant on April 18 who presents for obstructive kidney stone. Patient started having hematuria on Thursday along with nonspecific aches/pains. After another day of hematuria hewent to ED on Thursday. CT showing 6 mm right ureterovesicular junction calculus with right- sided hydronephrosis and hydroureter, the right lower quadrant [...] DAY SURGERY MAIN OR KIDNEY TRANSPLANT W/O WALKER RIVER NEPHRECTOMY N/A 04/12/2020 Laterality: N/A; Surgeon: [...] office. Medication can be purchased over the countergoing forward. 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 Strength grossly equal in muscle groups of the bilateral UEsand LEs. Psych: Ox3, appropriate affect and cognition [...] dilation of the calyces may represent narrowing/partial [id number] ofthe ureter and mild hydronephrosis or sequela [...] of the house staff team and discussed withthem all pertinent findings. I have personally reviewed [...] RLQ abdominal and flank pain and elevated Cr.He presented to and OSH last weekend with similar symptoms and was diagnosed with a small, non-obstructing kidney stone and discharged home with flomax. Symptoms worsened again on Thursday promptinghim to return to the ER. Pain is [...] MD Division of Hospital Medicine [phone] [facility] Work Phone: 1(525) 383-956106-16-2022 History and physical note* Evan Bennett MD - 05/15/2022 9:18 PM EDT Internal Medicine Admission History & Physical Patient: George Styles, 1970, [id number] Physician: Evan Bennett MD, PGY1, Pager #[phone], GM 4 service Date of face to face patient encounter: 05/15/22 . Chief Complaint: Kidney Stones History Of Present Illness: George Styles is a 52 y.o. male with a history of alcoholic cirrhosis (alcohol), ESRD (Htn) s/p kidneytransplant and liver transplant on April 18 who presents for obstructive kidney stone. Patient started having hematuria on Thursday along with nonspecific aches/pains. After another day of hematuria hewent to ED on Thursday. CT showing 6 mm right ureterovesicular junction calculus with right- sided hydronephrosis and hydroureter, the right lower quadrant [...] DAY SURGERY MAIN OR KIDNEY TRANSPLANT W/O WALKER RIVER NEPHRECTOMY N/A 04/12/2020 Laterality: N/A; Surgeon: [...] office. Medication can be purchased over the countergoing forward. 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 Strength grossly equal in muscle groups of the bilateral UEsand LEs. Psych: Ox3, appropriate affect and cognition [...] dilation of the calyces may represent narrowing/partial [id number] ofthe ureter and mild hydronephrosis or sequela [...] of the house staff team and discussed withthem all pertinent findings. I have personally reviewed [...] RLQ abdominal and flank pain and elevated Cr.He presented to and OSH last weekend with similar symptoms and was diagnosed with a small, non-obstructing kidney stone and discharged home with flomax. Symptoms worsened again on Thursday promptinghim to return to the ER. Pain is [...] of Hospital Medicine [id number] [facility] Emergency department Note* Nisha Gardiner RN - 05/15/2022 7:02 PM EDT Bladder scan with Dr Villatoro at bedside, 14ml noted [facility]06-16-2022 Consult note* Stephanie Tomas MD - 05/15/2022 7:02 PM EDTAssociated Order(s): IP CONSULT TO SURGERY - UROLOGY [...] states he went to his local ED [place] and he was put on Flomax and he did improve. Pt states last night he was unable to void with severe right sided abd pain. Pt states nausea and no vomiting or fevers. Pt states he went back to [place] ED at 0100 and they placed a matias. After matias placed,no sig urine output recorded. CT imaging obtained at OSH with new calcification in the right transplant lower pole vs UPJ and mild right renal edema, no clear hydronephrosis Transplant performed at [facility]. His post transplant course was complicated by delayed graft function and he required iHD until 04/26/2020. Last seen in clinic 12/2021 and noted to have good graft functionat that time. No previous Urologic Hx No [...] orthotopic (N/A, 04/12/2020); and kidney transplant w/o chilkoot nephr ectomy (N/A, 04/12/2020). 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 The chilkoot kidneys are progressively atrophic bilaterally compared to [...] of 06/14/2020 are no longer present. The chilkoot distal right ureter is decompressed beyond this [...] with surgical history for renal graft and chilkoot right urinary drainage, as a discrete ureteroneocystostomy is not identified, and the graft may be draining via a ureteroureterostomy. Urology consultation recommended. 3. The chilkoot kidneys are bilaterally atrophic, with right renal sinus calcifications consistent with nonobstructing right chilkoot renal calculi up to 6 mm. Normal [...] PGY-3, Department of Urologic Surgery Pager #: [phone] Associated attestation - Ryan Yepez MD - 05/16/2022 12:23 PM EDT I saw and independently examined this patient today. I discussed my findings and the therapeutic plan with the resident. I agree with the their history, physical examination, and medical decisions asoutlined. In addition: Patient with hx of urolithiasis [...] before surgical intervention --may continue flomax [facility] Work Phone: [phone] Emergency department Note* Nisha Gardiner RN - 05/15/2022 6:[address] Schneider concerning no urine output via matias catheter. [facility]06-16-2022 Physician Emergency department Note* Gian Villatoro MD - 05/15/2022 6:01 PM EDT ED Attending George Styles has a past medical history of Acute renal failure, CAD (coronary artery disease), Cirrhosis, Dialysis patient, End stage renal disease (06/01/2018), Essential hypertension, benign, Hepaticencephalopathy, History of blood transfusion, and Liver cirrhosis. Presents with a chief complaint of kidney stone and diagnosed Thursday and was sent home with flomax. He went back to that ED and found to have a 6mm stone that is obstructing. He had a matias catheter placed and transferred here forfurther evaluation. He has BP 140/66 Pulse 78 [...] discussed the history and examination with the residentand agree with the plan of care. Gian Villatoro MD 05/15/222003 [facility] Work Phone: [phone] Emergency department Note* Nisha Gardiner RN - 05/15/2022 5:[address] Schneider made aware of only 30 ml urine via matias since arrival to room. [facility]06-16-2022 Physician Emergency department Note* Matt Schneider MD - 05/15/2022 4:38 PM EDT dEPARTMENT of Emergency Medicine CHIEF COMPLAINT Kidney [...] where they put a Matias and did aCT scan. It shows a 6 mm right [...] DAY SURGERY MAIN OR KIDNEY TRANSPLANT W/O WALK[place] RIVER NEPHRECTOMY N/A 04/12/2020 Laterality: N/A; Surgeon: [...] tablet daily. Last refill from our office. Medicationcan be purchased over the counter going forward. [...] Take daily at bedtime for foot and anklepain. losartan 50 MG tablet take 1 tablet [...] obstructive stone that is infected and FAYE. Physicalexam is remarkable for tenderness to palpation over [...] the etiology of today's presentation. They recommend admissionfor medical management and possible nephrostomy tube by [...] incorrections. Matt Schneider MD Resident 05/15/222030 [facility] Work Phone: 1(964) 472-762606-16-2022 Emergency department Note* Lynn Rutherford RN - 05/15/2022 2:15 PM EDT Pt arrives from [facility] with kidney stones. Pt states he had right lower abd pain and right flank pain with blood in his urine since Thursday. Pt states he went to his local ED [place] andhe was put on Flomax and he did improve. Pt states last night he was unable to void with severe right sided abd pain. Pt states nausea and no vomiting or fevers. Pt states he went back to [place] EDat 0100 and they placed a matias and CT scan completed and multiple kidney stones noted. Pt sent to [facility] ED as he had liver and kidney transplant in 03/2020. [facility]04-15-2022 History of Present illness Narrative* Miranda Rosales - 03/14/2022 4:59 PM EDT [facility]: Call Information: Date and Time of Contact: 03/14/2022 5:01 PM Method of Contact: By Phone Contact Type: Prescriptions Contactor: [facility] Contactee: Patient Shipping/Pickup: Medicare B Refill?: No Medication Name: Mycophenolate sodium 180 mg and tacrolimus 0.5 mg Delivery Method: Air Delivery Location: Home Signature Required: No Mailing/Pickup Date: 03/17/2022 Shipping Address: [address] [place] [address] [address] Contact Info: Specialty ([place]) [phone] [facility] [phone] [facility] [phone] [facility] [phone] Bedside Delivery ([facility]) [phone] documented in [facility] encounter[facility] History of Present illness Narrative* Angel Carpio RPh,PharmD - 06/14/2021 11:57 AM EDT [facility]: Pre-Verification: Medication(s) Name: [...] Goal Progress: Satisfactory Contact Info: Specialty ([place]) [phone] Jakob [phone] [facility] [phone] [place] [phone] Bedside Delivery ([facility]) [phone] * Mallika Santiago - 06/14/2021 11:57 AM EDT [facility]: Call Information: Date [...] Location: Home Signature Required: Yes Shipping Address: [address] [place] [id number] Contact Info: Specialty ([place]) [phone] Jakob [phone] [facility] [phone] David [phone] Bedside Delivery ([facility]) [phone] documented in this encounterWayne HospitalEvaluation + Plan note Future Appointments Appointment Date:11/22/2024 09:00:00 AM Scheduled Provider:JONATHAN Almodovar APRN, Steph Wilson Location:[facility] Appointment Type:URO Office Visit [facility] evaluation note* Diagnosis FAYE (acute kidney injury)- Primary Acute kidney failure, unspecified Hydronephrosis due to obstruction of ureteral orifice Hydronephrosis due to obstruction of ureteral orifice FAYE (acute kidney injury) Acute kidney failure, unspecified [facility] Diagnosis Follow-up exam- Primary Unspecified follow-up examination [facility] Diagnosis Immunosuppressed status- Primary Unspecified disorder of immune mechanism Kidney replaced by transplant Liver replaced by transplant Abnormal blood chemistry Other abnormal blood chemistry High risk medication use Encounter for long-term (current) use of other medications Aftercare following organ transplant Liver transplant recipient [facility] Diagnosis Attention to nephrostomy- Primary [facility] Diagnosis Other hydronephrosis- Primary [facility]* Diagnosis FAYE (acute kidney injury) Acute kidney failure, unspecified [facility] Diagnosis Other hydronephrosis- Primary -donor kidney transplant recipient Kidney replaced by transplant [facility] Diagnosis Other hydronephrosis [facility] Diagnosis 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) Encounter for screening for malignant neoplasm of prostate Special screening for malignant neoplasm of prostate [facility] Diagnosis Abnormal blood chemistry- Primary Other abnormal blood chemistry Liver transplant recipient Kidney replaced by transplant Immunosuppressed status Unspecified disorder of immune mechanism Aftercare following organ transplant [facility] Diagnosis Kidney replaced by transplant- Primary [facility]* Diagnosis Immunosuppressed status- Primary Unspecified disorder of immune mechanism Kidney replaced by transplant Aftercare following organ transplant High risk medication use Encounter for long-term (current) use of other medications Other general symptoms and signs Abnormal blood chemistry Other abnormal blood chemistry Hypertension secondary to other renal disorders [facility]* Diagnosis Histoplasmosis- Primary Histoplasmosis, unspecified [...] Fever Fever, unspecified [facility]* Diagnosis Bilateral lower extremity edema- Primary 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) Atherosclerosis 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) Atherosclerosis of aorta Obesity (BMI 30-39.9) DARELNE (obstructive sleep apnea) Obstructive sleep apnea (adult) (pediatric) Tremor Abnormal involuntary movements Immunocompromised (CMS/HCC) Unspecified immunity deficiency Primary hypertension (CMS/HCC) Unspecified essential hypertension Shortness of breath documented in this encounter [facility]* Diagnosis Pleural effusion on [...] specified pre-operative examination [facility]* Diagnosis Heart failure, diastolic, acute- Primary Acute diastolic heart failure [facility]* Diagnosis Liver lesion- Primary Other specified disorders of liver Liver transplant recipient High risk medication use Encounter for long-term (current) use of other medications Therapeutic drug monitoring Encounter for therapeutic drug monitoring Immunocompromised Unspecified immunity deficiency [facility] Diagnosis Kidney replaced by transplant- Primary [facility]* Diagnosis DARLENE (obstructive sleep apnea)- [...] urinary stream [facility]* Diagnosis DARLENE (obstructive sleep apnea)- Primary [...] stream Slowing of urinary stream Decreased urine stream Slowing of urinary stream [facility]* Diagnosis Primary hypertension (CMS/HCC) Unspecified essential hypertension [facility]* Diagnosis DARLENE (obstructive sleep apnea)- Primary [...] Decreased urine stream Slowing of urinary stream Primary hypertension (CMS/HCC)- Primary Unspecified essential hypertension Immunodeficiency, unspecified (CMS/HCC) Liver transplant status (CMS/HCC) Portal hypertension (CMS/HCC) Portal hypertension Obesity (BMI 30-39.9) Other osteoporosis without current pathological fracture (CMS/HCC) Kidney stones Calculus of kidney documented in this encounter [facility]* Diagnosis Primary hypertension (CMS/HCC)- Primary Unspecified essential hypertension [...] Decreased urine stream Slowing of urinary stream documented in this encounter [facility] Healthcare[facility]ospital course Narrative No data available for this section [facility] Hospital Discharge instructions Additional Instructions DISCHARGE INSTRUCTIONS FOR UPPER ENDOSCOPY WHAT TO EXPECT: - You may feel full, gassy or cramping after your procedure. In some cases, this may be from a few hours to a day. Walking may help relieve the discomfort. - Your throat may feel sore today from the scope that the doctor passed through your throat to visualize your stomach. Take a throat lozenge or suck on ice to ease the discomfort. - You may notice some streaks of blood in your sputum if the doctor has taken a biopsy. - You should begin to recover from anesthesia within 1 hour of the procedure, however may feel groggy for the next 24 hours. DO's AND DON'Ts: - Call your doctor right away if you have a hard abdomen, severe pain, vomiting or if you cough up large amounts of blood. - Call your doctor if you develop any rashes, hives or difficulty breathing. - If you take 81 mg aspirin for your heart it is safe to resume this medication. - If you take other blood thinner medications your doctor will instruct you when these can safely be resumed. - Do NOT drive for 24 hours. - Do NOT operate machinery such as power tools, lawn mowers, snow blowers, sewing machines, etc. for 24 hours. - Avoid alcoholic beverages and drugs for allergies, nerves, or sleep. - Do NOT stay alone. Do NOT leave your child unattended. - Do NOT make important personal or business decisions or sign any legal documents. - Eat solid foods and drink liquids in smaller amounts than usual until normal appetite returns. If you should experience an upset stomach, liquids high in sugar content (soda, Randal-Aid, non-acid juices) are recommended. - Do NOT smoke. - Do take it easy today. You need not stay in bed, but avoid strenuous activities such as jogging or working out. DISCHARGE INSTRUCTIONS FOR COLONOSCOPY WHAT TO EXPECT: - You may feel full, gassy or cramping after your procedure. In some cases, this may be from a few hours to a day. Walking may help relieve the discomfort. - If you have polyp(s) removed you may note some minor bloody discharge after your first bowel movements. - You should begin to recover from anesthesia within 1 hour of the procedure, however may feel groggy for the next 24 hours. DO's AND DON'Ts: - Call your doctor right away if you have a hard abdomen, sever pain, are passing lots of bright red blood or clots. - Call your doctor if you develop any rashes, hives or difficulty breathing. - Let your doctor know if you have not had a bowel movement by 3 days after your procedure. - If you take 81 mg aspirin for your heart it is safe to resume this medication. - If you take other blood thinner medications your doctor will instruct you when these can safely be resumed. - Do NOT drive for 24 hours. - Do NOT operate machinery such as power tools, lawn mowers, snow blowers, sewing machines, etc. for 24 hours. - Avoid alcoholic beverages and drugs for allergies, nerves, or sleep. - Do NOT stay alone. Do NOT leave your child unattended. - Do NOT make important personal or business decisions or sign any legal documents. - Eat solid foods and drink liquids in smaller amounts than usual until normal appetite returns. If you should experience an upset stomach, liquids high in sugar content (soda, Randal-Aid, non-acid juices) are recommended. - You can resume normal activities tomorrow. FOLLOW UP & RECOMMENDATIONS: -Notify the doctor if you have any problems. -Repeat colonoscopy in 10 years -Regarding constipation can add tablespoon of Metamucil once daily if needed, avoid dehydration, Can add Miralax 17gm PO Qday and titrate up to twice or three times daily if needed. - Office number [phone]. [facility] Work Phone: Progress note No data available for this section [facility] reason for referral (narrative)* Consultation (Routine) - New Request Specialty Diagnoses / Procedures Referred By Contac t Referred To Contact Interventional Radiology Diagnoses Hydronephrosis due to obstruction of ureteral orifice Daya Saldana MD [address] [place] [address] Referral ID Status Reason Start Date Expiration Date V isits Requested Visits Authorized [id number] New Request 05/18/2022 06/12/2023 1 1 * Radiology (Emergency) - New Request Specialty Diagnoses / Procedures Referred By Contac t Referred To Contact Procedures US RENAL TRANSPLANT SCAN Daya Saldana MD [address] [place] [address] Referral ID Status Reason Start Date Expiration Date V isits Requested Visits Authorized [id number] New Request 05/16/2022 06/10/2023 1 1 * Consultation (Routine) - New Request Specialty Diagnoses / Procedures Referred By Contac t Referred To Contact Urology Diagnoses FAYE (acute kidney injury) Ryan Yepez MD [address] [facility] [address] [place] [address] Referral ID Status Reason Start Date Expiration Date V isits Requested Visits Authorized [id number] New Request 05/16/2022 06/10/2023 1 1 * MRI/CAT Scan (Routine) - New Request Specialty Diagnoses / Procedures Referred By Contac t Referred To Contact Diagnoses FAYE (acute kidney injury) Procedures CT ABDOMEN/PELVIS WITHOUT CONTRAST CHG CT SCAN,ABDOMENT AND PELVIS,W/O CONTRAST Ryan Yepez MD [address] [facility] [address] [place] [address] Referral ID Status Reason Start Date Expiration Date V isits Requested Visits Authorized [id number] New Request 05/16/2022 06/10/2023 1 1 * (Routine) - Pending Review Specialty Diagnoses / Procedures Referred By Contac t Referred To Contact Procedures PLATELET MONITORING PER PROTOCOL Daya Saldana MD [address] [place] [address] Referral ID Status Reason Start Date Expiration Date V isits Requested Visits Authorized [id number] Pending Review 05/15/2022 06/09/2023 1 1 * (Routine) - Pending Review Specialty Diagnoses / Procedures Referred By Contac t Referred To Contact Procedures DVT/VTE RISK ASSESSMENT Daya Saldana MD [address] [place] [address] Referral ID Status Reason Start Date Expiration Date V isits Requested Visits Authorized [id number] Pending Review 05/15/2022 06/09/2023 1 1 * (Routine) Specialty Diagnoses / Procedures Referred By Contac t Referred To Contact Evan Bennett MD [address] [place] [phone] Referral ID Status Reason Start Date Expiration Date Visits Re quested Visits Authorized * (Routine) Specialty Diagnoses / Procedures Referred By Contac t Referred To Contact Evan Bennett MD [address] [place] [phone] Referral ID Status Reason Start Date Expiration Date Visits Re quested Visits [facility] Consultation (Routine) - New Request Specialty Diagnoses / Procedures Referred By Contac t Referred To Contact Sleep Medicine Diagnoses Hypoxia Kevin Prince MD [address] [place] [phone] Referral ID Status Reason Start Date Expiration Date V isits Requested Visits Authorized [id number] New Request 09/10/2023 10/04/2024 1 1 * MRI/CAT Scan (Routine) - New Request Specialty Diagnoses / Procedures Referred By Contac t Referred To Contact Diagnoses Histoplasmosis Procedures CT CHEST WITHOUT CONTRAST CHG DIAGNOSTIC COMPUTED TOMOGRAPHY THORAX W/O Kevin Zarate MD [address] [place] [phone] Referral ID Status Reason Start Date Expiration Date V isits Requested Visits Authorized [id number] New Request 09/10/2023 10/04/2024 1 1 * Radiology (Routine) - New Request Specialty Diagnoses / Procedures Referred By Contac t Referred To Contact Procedures US RENAL TRANSPLANT SCAN Steve Munoz MBBS [address] [place] [address] Referral ID Status Reason Start Date Expiration Date V isits Requested Visits Authorized [id number] New Request 08/29/2023 09/22/2024 1 1 * (Routine) - New Request Specialty Diagnoses / Procedures Referred By Contac t Referred To Contact Procedures PLATELET MONITORING PER PROTOCOL Steve Munoz MBBS [address] [place] [address] Referral ID Status Reason Start Date Expiration Date V isits Requested Visits Authorized [id number] New Request 08/28/2023 09/21/2024 1 1 * (Routine) - New Request Specialty Diagnoses / Procedures Referred By Contac t Referred To Contact Procedures DVT/VTE RISK ASSESSMENT Steve Munoz MBBS [address] [place] [address] Referral ID Status Reason Start Date Expiration Date V isits Requested Visits Authorized [id number] New Request 08/28/2023 09/21/2024 1 1 [facility] for referral (narrative)* Consultation (Routine) - Pending Review Specialty Diagnoses / Procedures Referred By Contac t Referred To Contact Urology Diagnoses Decreased urine stream Procedures UT OFFICE/OUTPATIENT NEW HIGH MDM 60 MINUTES Zuly Bruno NP [address] [facility] [place] [address] Trace Gannon MD [address] [place] [address] Referral ID Status Reason Start Date Expiration Date Visits Requested Visits Authorized [id number] Pending Review Specialty Services Required 08/23/2024 02/19/2025 1 1 * Consultation (Routine) - Pending Review Specialty Diagnoses / Procedures Referred By Contac t Referred To Contact Gastroenterology Diagnoses Gastroesophageal reflux disease, unspecified whether esophagitis present Abdominal pain, generalized Other constipation Procedures UT OFFICE/OUTPATIENT NEW HIGH MDM 60 MINUTES Zuly Bruno NP [address] [place] [address] Alaina Mclaughlin DO [address] [facility] [address] [place] [phone] Referral ID Status Reason Start Date Expiration Date Visits Requested Visits Authorized [id number] Pending Review Specialty Services Required 08/23/2024 02/19/2025 1 1 * (Routine) - Authorized Specialty Diagnoses / Procedures Referred By Contac t Referred To Contact Radiology Diagnoses Left carotid bruit Mixed hyperlipidemia (CMS/HCC) Procedures Vascular US carotid artery duplex bilateral Zuly Bruno NP [address] [place] [address] Referral ID Status Reason Start Date Expiration Date V isits Requested Visits Authorized [id number] Authorized 08/23/2024 02/19/2025 1 1 [facility] Instructions * Patient Instructions - Christin Elizabeth APRN-ROB - 10/19/2018 9:21 AM EST You should take an extra dose of the lactulose as needed so that you are having 3-4 bowel movementsdaily. You should start the chemical dependency counseling as soon as possible. If you have questions, call the transplant social work professor Fidelina Pierson. in this encounter* Patient Instructions - Sophie Cary RN - 10/12/2018 11:09 AM EST You have been seen in the pre-transplant evaluation clinic by Dr. Restrepo and Sophie Cary. Sophie Cary is your pre-cooperative education coordinator she can be reached at [phone] at any time for questions during the pre-transplant process. Your evaluation is complete pendin. Abdominal ultrasound. 2. 6 minute walk test. 3. Cardiology evaluation. Additionally, your resource coordinator will recommend testing to screen for coronary [...] after you have satisfied requirements dictated by [email or web address] company. Once your testing is complete, we [...] ___ Other Name MRN * Christin Elizabeth, CAR TOP BOLTER-RESEARCH ENGINEER - 10/19/2018 9:00 AM EST Formatting of this note may be different from the original. History of Present Illness: Chief Complaint Patient presents with Follow-up Cirrhosis George Styles is a 48 y.o. male who presents to the [facility] today regarding his diagnosis/chief complaint(s) of Cirrhosis secondary to ETOH, with ESRD follows with Dr. Orr. Currently undergoing evaluation for liver/kidney transplant. Has been seen in transplant clinic for eval. Still undergoing pre testing. Diagnosed in April 2018. Last drink was immediately prior to hospital admission in [place] for ACLF. Hospital course notable for ARF [...] kidney transplant evaluation. Pt was AOx3. Transplant Data Communications Analyst role/function was explained and reviewed. The patient was informed that the results of this assessment will be shared with the referring provider and the transplant team. The patient verbalized understanding of this information. The [facility] psychosocial assessment consent form has been explained to patient and has been signed. Pt is completing this evaluation with brother (David) in the Outpatient setting. NANCYK educated pt on the benefits of completing/filing advanced directives and resources were offered. Pt identifies with [employer] congregational. Pt confirms being a [place] Citizen. Pt.'s primary language is Thai. Pt confirms the ability to read,write, and understand Thai. Pt denies potential donors. Donor cards and [...] has valid license, does not regularly drive (RESEARCH ENGINEER recommends that he not to drive). He [...] as well as referred him to pre cooperative education coordinator. Pt and support demonstrated moderate understanding [...] brother David is a self employed farm labor contractor. Additional support includes his other brother Tyshawn and his Mary live fifteen minutes away. Of note Mary is a spa director/finance for a [employer] is available to assist drug department worker. He confirms being comfortable asking for help. [...] in 2010, he was employed by the [employer]. He has access to SSDI payment (SSDI starts in November) in regards to financial means pre/ post-transplant. Pt confirms (meeting bills currently, ) being able to meet daily needs. Patient's brother asking for additional information on community resources, food stamps and [place]. Refer him to pt.'s dialysis center and the [facility]. Hereports access to Medicaid. Pt. denies history. [...] court ordered treatment after a DUI charge [facility] in [place], court ordered treatment in 2001 and in [...] by patient from his primary medical provider- [facility] patient was noted as attending an [...] He was provided with local AOD resources, [facility] AOD informational packet. Pt was [...] new visit Date of service: 10/12/2018 -Referring packaging associate for today's consult: -Primary Care Provider: Zuly Bruno CC: Chief Complaint Patient presents with Liver Recipient Evaluation History of Present Illness George Styles is a 48 y.o. male who presents to the [facility] liver transplant surgery clinic today [...] EST Timed up and go 9.9 seconds Computer Bookkeeper Left 52.8 pounds Right 44.9 pounds Waist circ 38.5 inches * Sophie Cary, RN - 10/12/2018 10:00 AM EST Formatting of this note may be different from the original. Patient George Styles ([id number]), accompanied by his brother, was seen on [...] any further questions. Sophie DON, RN Liver Diet Clerk Etiology: ETOH HCC: No ETOH: Yes Last [...] Orr MD [address] [address] Status Reason Specialty Diagnoses / Procedures Referred By Contact Referred To Contact New Request Diagnoses Cirrhosis of liver with ascites, unspecified hepatic cirrhosis type Procedures US ABDOMEN RUQ/LIVER/GB Yovani Orr MD [address] [address] Specialty Diagnoses / Procedures Referred By Contac t Referred To Contact Diagnoses FAYE (acute kidney injury) Procedures CT ABDOMEN/PELVIS WITHOUT CONTRAST CHG CT SCAN,ABDOMENT AND PELVIS,W/O CONTRAST Central Scheduling [address] [place] [phone] Referral ID Status Reason Start Date Expiration Date V isits Requested Visits Authorized [id number] Pending Review 05/16/2022 06/10/2023 1 1 Specialty Diagnoses / Procedures Referred By Contac t Referred To Contact Diagnoses Other hydronephrosis Procedures FLUORO IMAGING FOR UROLOGY Ryan Yepez MD [address] [facility] [address] [place] [phone] Referral ID Status Reason Start Date Expiration Date V isits Requested Visits Authorized [id number] New Request 07/07/2022 08/01/2023 1 1 Specialty Diagnoses / Procedures Referred By Contac t Referred To Contact Procedures DIRECT ADMIT REQUEST Steve Munoz MBBS [address] [place] [address] Referral ID Status Reason Start Date Expiration Date V isits Requested Visits Authorized [id number] New Request 08/28/2023 09/21/2024 1 1 Specialty Diagnoses / Procedures Referred By Contac t Referred To Contact Radiology Diagnoses DARLENE (obstructive sleep apnea) Primary hypertension (CMS/HCC) Bilateral lower extremity edema Shortness of breath Procedures Echocardiogram 2D complete Zuly Bruno NP [address] [place] [address] Referral ID Status Reason Start Date Expiration Date Visits Requested Visits Authorized [id number] Incomplete Perform Procedure 01/06/2024 07/04/2024 1 1 Specialty Diagnoses / Procedures Referred By Contac t Referred To Contact Procedures US IMAGING REGIONAL ANESTHESIA Kehinde Gutierrez MD [address] [place] [address] Referral ID Status Reason Start Date Expiration Date V isits Requested Visits Authorized [id number] New Request 01/22/2024 02/15/2025 1 1 Specialty Diagnoses / Procedures Referred By Contac t Referred To Contact Cardiovascular Medicine Diagnoses Heart failure, diastolic, acute Kelvin Pacheco MD, MBBS [address] [place] [address] Referral ID Status Reason Start Date Expiration Date V isits Requested Visits Authorized [id number] New Request 01/20/2024 02/13/2025 1 1 Specialty Diagnoses / Procedures Referred By Contac t Referred To Contact Procedures US ABDOMEN LIVER DOPPLER US ABDOMEN LIVER TRANSPLANT DOPPLER Timothy Joseph MD [address] [facility] [address] [place] [address] Referral ID Status Reason Start Date Expiration Date V isits Requested Visits Authorized [id number] New Request 01/16/2024 02/09/2025 1 1 Specialty Diagnoses / Procedures Referred By Contac t Referred To Contact Procedures DVT/VTE RISK ASSESSMENT Kelvin Pacheco MD, MBBS [address] [place], [place] [phone] Referral ID Status Reason Start Date Expiration Date V isits Requested Visits Authorized [id number] New Request 01/16/2024 02/09/2025 1 1 Specialty Diagnoses / Procedures Referred By Contac t Referred To Contact Procedures PLATELET MONITORING PER PROTOCOL Kelvin Pacheco MD, MBBS [address] [place] [address] Referral ID Status Reason Start Date Expiration Date V isits Requested Visits Authorized [id number] New Request 01/16/2024 02/09/2025 1 1 Referral ID Status Reason Start Date Expiration Date V isits Requested Visits Authorized [id number] New Request 01/16/2024 02/09/2025 1 1 Specialty Diagnoses / Procedures Referred By Contac t Referred To Contact Procedures ECG Kelvin Pacheco MD, MBBS [address] [place] [address] Referral ID Status Reason Start Date Expiration Date V isits Requested Visits Authorized [id number] New Request 01/16/2024 02/09/2025 1 1 Specialty Diagnoses / Procedures Referred By Contac t Referred To Contact Diagnoses Liver lesion Procedures MRI ABDOMEN WITH AND WITHOUT CONTRAST CHG MRI ABDOMEN W/O & W/CONTRAST MATERIAL Daisha Max DO [address] [place] [address] Referral ID Status Reason Start Date Expiration Date V isits Requested Visits Authorized [id number] New Request 06/17/2024 07/12/2025 1 1 Advance Directives No Advanced Directives Records FoundDocuments on File Type Date Recorded Patient Retread Operator Expl anation Advance Directives and Living Will Power of Entrepreneurial Finance Professor Latest Code Status on File Code Status [...] Comments 05/10/2020 4:17 AM 05/15/2022 10:11 PM Advance Directive Response Recorded Date/ Time Advance Directives No July 1:56am Summary Purpose Family History No Family History Records Found Relationship Condition Age at Onset Recorded Date/T luana mother Heart disease Unknown father Heart disease Unknown Chief Complaint and Reason for Visit Chief Complaint Admit Date Refer: GERD, abdominal pain, constipatio n December 15, 2024 9:01am Reason for Visit Admit Date Abdominal pain December 15, 2024 9 :01am GERD (gastroesophageal reflux disease) J anuary 2024 9:01am Irritable bowel syndrome with constipati on December 15, 2024 9:01am Chief Complaint Admit Date Refer: GERD, abdominal pain, constipatio n December 15, 2024 9:01am change in bowel habits,constipation,ab p ain, gerd December 26, 2024 6:44am change in bowel habits,constipation,ab p ain, gerd December 26, 2024 8:35am Additional Source Comments Reason for Visit (unrecogniz ed section and content) Reason Comments Follow-up Cirrhosis Status Reason Specialty Diagnoses / Procedures Referred By Contact Referred To Contact New Request Diagnoses Cirrhosis of liver with ascites, unspecified hepatic cirrhosis type Procedures US ABDOMEN RUQ/LIVER/GB Yovani Orr MD [address] [address] Status Reason Specialty Diagnoses / Procedures Referre d By Contact Referred To Contact Denied Diagnoses Alcoholic cirrhosis, unspecified whether ascites present Pre-transplant evaluation for liver transplant Procedures MRI ABDOMEN WITH CONTRAST UT MRI, ABDOMEN W/CONTRAST Yovani Orr MD [address] [address] Reason Comments Liver Recipient Evaluation Status Reason Specialty Diagnoses / Procedures Referred By Contact Referred To Contact New Request Transplant / Transplant Surgery Procedures PRE NEW PATIENT Yovani Orr MD [address] [address] Alfredito Restrepo MD [address] [place] [address] Reason Comments Reschedule Reason Comments Outside Medical Records Request Reason Comments Social Work Follow-up Reason Comments Kidney Stone Specialty Diagnoses / Procedures Referred By Contac t Referred To Contact Diagnoses Obstructing kidney stone, s/p kidney transplant 2019 Daya Saldana MD [address] [place] [address] [facility] [address] [place] [address] Referral ID Status Reason Start Date Expiration Date Visits Re quested Visits Authorized [id number] 1 1 Reason Comments Follow-up Reason Comments Kidney Recipient Follow-up Liver Recipient Follow-up Reason Comments Consult Reason Comments New Patient Hospital follow up Specialty Diagnoses / Procedures Referred By Contac t Referred To Contact Urology Diagnoses hosp fu with [address] prior Procedures NEW TO DOC/RET PATIENT Zuly Bruno CNP [address] [place] [address] Ryan Yepez MD [address] [facility] [address] [place] [address] Referral ID Status Reason Start Date Expiration Date Visits Re quested Visits Authorized [id number] Closed 06/27/2022 07/22/2023 1 1 Specialty Diagnoses / Procedures Referred By Contac t Referred To Contact Diagnoses FAYE (acute kidney injury) Procedures CT ABDOMEN/PELVIS WITHOUT CONTRAST CHG CT SCAN,ABDOMENT AND PELVIS,W/O CONTRAST Central Scheduling [address] [place] [phone] Referral ID Status Reason Start Date Expiration Date V isits Requested Visits Authorized [id number] Pending Review 05/16/2022 06/10/2023 1 1 Reason Comments Follow-up Specialty Diagnoses / Procedures Referred By Contac t Referred To Contact Urology Diagnoses 1 week fu post NT clamp Procedures RETURN PATIENT Zuly Bruno CNP [address] [place] [address] Ryan Yepez MD [address] [facility] [address] [place] [address] Referral ID Status Reason Start Date Expiration Date Visits Requested Visits Authorized [id number] Authorized - 07/07/2022 08/01/2023 2 2 Specialty Diagnoses / Procedures Referred By Contac t Referred To Contact Diagnoses Other hydronephrosis Procedures FLUORO IMAGING FOR UROLOGY Ryan Yepez MD [address] [facility] [address] [place] [address] Referral ID Status Reason Start Date Expiration Date V isits Requested Visits Authorized [id number] New Request 07/07/2022 08/01/2023 1 1 Specialty Diagnoses / Procedures Referred By Contac t Referred To Contact Urology Diagnoses 1 week fu post NT clamp Procedures RETURN PATIENT Zuly Bruno, RESEARCH ENGINEER [address] [place] [address] Ryan Yepez MD [address] [facility] [address] [place] [address] Referral ID Status Reason Start Date Expiration Date Visits Re quested Visits Authorized [id number] Closed 07/07/2022 08/01/2023 2 2 Reason Comments Liver Recipient Follow-up Reason Comments Kidney Recipient Follow-up Reason Comments Kidney Recipient Follow-up Specialty Diagnoses / Procedures Referred By Contac t Referred To Contact Diagnoses Kidney replaced by transplant Steve Munoz MBBS [address] [place] [address] [facility] [address] [place] [address] Referral ID Status Reason Start Date Expiration Date Visits Re quested Visits Authorized [id number] 1 1 Specialty Diagnoses / Procedures Referred By Contac t Referred To Contact Diagnoses Pleural effusion on right PNEUMONIA- HX LIVER AND KIDNEY TRANSPLANT Kevin Prince MD [address] [place] [address] [facility] [address] [place] [address] Referral ID Status Reason Start Date Expiration Date Visits Re quested Visits Authorized [id number] 1 1 Reason Comments New Patient Specialty Diagnoses / Procedures Referred By Contac t Referred To Contact Cardiovascular Medicine Diagnoses Heart failure, diastolic, acute Kelvin Pacheco MD, MBBS [address] [place] [address] Referral ID Status Reason Start Date Expiration Date Visits Requested Visits Authorized [id number] Authorized - 01/20/2024 02/13/2025 5 5 Reason Comments Liver Recipient Follow-up Reason Onset Date Comments Med Refill 10/01/2024 Reason Comments Med Refill Reason Onset Date Comments Med Refill 08/11/2024 Reason Comments Hypertension (unrecognized sect ion and content) No Status Records FoundNo Status Records FoundNo Status Records FoundNo Status Records FoundNo Status Records FoundNo Status Records FoundNo Status Records FoundNo Status Records Found INFORMATION SOURCE (unrecogn ized section and content) DATE CREATED AUTHOR 01/07/2020 [facility] DATE CREATED AUTHOR AUTHOR'S ORGANIZ ATION 01/27/2021 [facility] DATE CREATED AUTHOR AUTHOR'S ORGANIZ ATION 05/11/2023 [facility] DATE CREATED AUTHOR AUTHOR'S ORGANIZ ATION 06/03/2024 [facility] DATE CREATED AUTHOR AUTHOR'S ORGANIZ ATION 11/10/2024 [facility] EPIC DATE CREATED AUTHOR AUTHOR'S ORGANIZ ATION 11/24/2024 [facility] DATE CREATED AUTHOR AUTHOR'S ORGANIZ ATION 12/26/2024 [facility] DATE CREATED AUTHOR AUTHOR'S ORGANIZ ATION 12/28/2024 [facility] Care Teams (unrecognized sec tion and content) Renewable Energy Consultant Relationship Specialty Start Date End Date Zuly Bruno, RESEARCH ENGINEER PCP - General 07/19/18 MiguelComfort, [facility] [address] [place] [address] Pharmacist Pharmacist 05/16/20 Angel Carpio [facility],PharmD Pharmacist Pharmacist 05/16/20 Te Leigh [facility],PharmD Pharmacist Pharmacist 01/09/21 Renewable Energy Consultant Relationship Specialty Start Date End Date Zuly Bruno CNP PCP - General 07/19/18 Miguel Comfort C, [facility] [address] [place] [address] Pharmacist Pharmacist 05/16/20 Angel Carpio [facility],PharmD Pharmacist Pharmacist 05/16/20 Te Leigh [facility],PharmD Pharmacist Pharmacist 01/09/21 Renewable Energy Consultant Relationship Specialty Start Date End Date Zuly Bruno CNP PCP - General 07/19/18 Renewable Energy Consultant Relationship Specialty Start Date End Date Zuly Bruno CNP PCP - General 07/19/18 Renewable Energy Consultant Relationship Specialty Start Date End Date Zuly Bruno CNP PCP - General 07/19/18 Renewable Energy Consultant Relationship Specialty Start Date End Date Zuly Bruno CNP PCP - General 07/19/18 Renewable Energy Consultant Relationship Specialty Start Date End Date Zuly Bruno CNP PCP - General 07/19/18 Renewable Energy Consultant Relationship Specialty Start Date End Date Zuly Bruno CNP PCP - General 07/19/18 Renewable Energy Consultant Relationship Specialty Start Date End Date Zuly Bruno CNP PCP - General 07/19/18 Renewable Energy Consultant Relationship Specialty Start Date End Date Zuly Bruno CNP PCP - General 07/19/18 Renewable Energy Consultant Relationship Specialty Start Date End Date LexielydialatishaZuly tipton CNP PCP - General 07/19/18 Renewable Energy Consultant Relationship Specialty Start Date End Date Zuly Bruno CNP PCP - General 07/19/18 Renewable Energy Consultant Relationship Specialty Start Date End Date BrianlatishaZuly tipton CNP PCP - General 07/19/18 Renewable Energy Consultant Relationship Specialty Start Date End Date LexielydiaAnnie dorantestray ROB PCP - General 07/19/18 Renewable Energy Consultant Relationship Specialty Start Date End Date LexielydiaZuly dorantes ROB PCP - General 07/19/18 Renewable Energy Consultant Relationship Specialty Start Date End Date Zuly Bruno CNP PCP - General 07/19/18 Renewable Energy Consultant Relationship Specialty Start Date End Date LexielydiaZuly dorantes CNP PCP - General 07/19/18 Evan White DO [address] [place] [address] Infectious Disease Infectious Disease 09/09/23 Renewable Energy Consultant Relationship Specialty Start Date End Date Zuly Bruno ROB PCP - General 07/19/18 Evan White DO [address] [place], [place] [id number] Infectious Disease Infectious Disease 09/09/23 Renewable Energy Consultant Relationship Specialty Start Date End Date Zuly Bruno CNP PCP - General 07/19/18 Evan White DO [address] [place], [place] [id number] Infectious Disease Infectious Disease 09/09/23 [employer] Consult[employer] Relationship Specialty Start Date End Date Momo Verdugo MD PCP - General Family Medicine 05/21/23 [employer] Consultant Relationship Specialty Start Date End Date Momo Verdugo MD PCP - General Family Medicine 05/21/23 [employer] Consultant Relationship Specialty Start Date End Date Momo Verdugo MD PCP - General Family Medicine 05/21/23 [employer] Consultant Relationship Specialty Start Date End Date Zuly Bruno CNP PCP - General 07/19/18 Evan White DO [address] [place] [id number] Infectious Disease Infectious Disease 09/09/23 [employer] Consultant Relationship Specialty Start Date End Date Zuly Bruno ROB PCP - General 07/19/18 Evan White DO [address] [place] [address] Infectious Disease Infectious Disease 09/09/23 [employer] Consultant Relationship Specialty Start Date End Date Zuly Bruno ROB PCP - General 07/19/18 Evan White DO [address] [place] [address] Infectious Disease Infectious Disease 09/09/23 [employer] Consultant Relationship Specialty Start Date End Date Zuly Bruno CNP PCP - General 07/19/18 Evan White DO [address] [place] [address] Infectious Disease Infectious Disease 09/09/23 [employer] Consultant Relationship Specialty Start Date End Date Zuly Bruno CNP PCP - General 07/19/18 Evan White DO [address] [place] [address] Infectious Disease Infectious Disease 09/09/23 [employer] Consultant Relationship Specialty Start Date End Date Zuly Bruno CNP PCP - General 07/19/18 [employer] Consultant Relationship Specialty Start Date End Date Zuly Bruno CNP PCP - General 07/19/18 [employer] Consultant Relationship Specialty Start Date End Date Zuly Bruno CNP PCP - General 07/19/18 [employer] Consultant Relationship Specialty Start Date End Date Zuly Bruno CNP PCP - General 07/19/18 [employer] Consultant Relationship Specialty Start Date End Date Zuly Bruno CNP PCP - General 07/19/18 [employer] Consultant Relationship Specialty Start Date End Date Zuly Bruno CNP PCP - General 07/19/18 [employer] Consultant Relationship Specialty Start Date End Date Zuly Bruno CNP PCP - General 07/19/18 [employer] Consultant Relationship Specialty Start Date End Date Momo Verdugo MD [address] [place] [phone] PCP - General Family Medicine 02/11/24 Zuly Bruno NP [address] [place] [phone] Nurse Practitioner Family Medicine 02/11/24 Kasandra Thomas DO [address] [place] [address] Referring Physician Neurology 02/17/24 [employer] Consultant Relationship Specialty Start Date End Date Momo Verdugo MD [address] [place] [phone] PCP - General Family Medicine 02/11/24 Zuly Bruno NP [address] [place] [phone] Nurse Practitioner Family Medicine 02/11/24 Kasandra Thomas DO [address] [place] [address] Referring Physician Neurology 02/17/24 [employer] Consultant Relationship Specialty Start Date End Date oMmo Verdugo MD [address] [place] [phone] PCP - General Family Medicine 02/11/24 Zuly Bruno NP [address] [place] [phone] Nurse Practitioner Family Medicine 02/11/24 Kasandra Thomas DO [address] [place] [address] Referring Physician Neurology 02/17/24 [employer] Consultant Relationship Specialty Start Date End Date Momo Verdugo MD [address] [place] [phone] PCP - General Family Medicine 02/11/24 Zuly Bruno NP [address] [place] [phone] Nurse Practitioner Family Medicine 02/11/24 Kasandra Thomas DO [address] [place] [address] Referring Physician Neurology 02/17/24 [employer] Consultant Relationship Specialty Start Date End Date Momo Verdugo MD [address] [place] [phone] PCP - General Family Medicine 02/11/24 Zuly Bruno NP [address] [place] [phone] Nurse Practitioner Family Medicine 02/11/24 Kasandra Thomas DO [address] [place] [address] Referring Physician Neurology 02/17/24 [employer] Consultant Relationship Specialty Start Date End Date Momo Verdugo MD [address] [place] [phone] PCP - General Family Medicine 02/11/24 Zuly Bruno, BA [address] [place] [phone] Nurse Practitioner Family Medicine 02/11/24 Kasandra Thomas DO [address] [place] [address] Referring Physician Neurology 02/17/24 [employer] Consultant Relationship Specialty Start Date End Date Momo Verdugo MD [address] [place] [phone] PCP - General Family Medicine 02/11/24 Zuly Bruno NP [address] [place] [phone] Nurse Practitioner Family Medicine 02/11/24 Kasandra Thomas DO [address] [place] [address] Referring Physician Neurology 02/17/24 [employer] Consultant Relationship Specialty Start Date End Date Momo Verdugo MD [address] [place] [phone] PCP - General Family Medicine 02/11/24 Zuly Bruno NP [address] [place] [phone] Nurse Practitioner Family Medicine 02/11/24 Kasandra Thomas DO [address] [place], [place] [id number] Referring Physician Neurology 02/17/24 [employer] Consultant Relationship Specialty Start Date End Date Momo Verdugo MD [address] [place] [phone] PCP - General Family Medicine 02/11/24 Zuly Bruno NP [address] [place] [phone] Nurse Practitioner Family Medicine 02/11/24 Kasandra Thomas DO [address] [place] [address] Referring Physician Neurology 02/17/24 [employer] Consultant Relationship Specialty Start Date End Date Momo Verdugo MD [address] [place] [phone] PCP - General Family Medicine 02/11/24 Zuly Bruno NP [address] [place] [phone] Nurse Practitioner Family Medicine 02/11/24 Kasandra Thomas DO [address] [place], [place] [address] Referring Physician Neurology 02/17/24 [employer] Consultant Relationship Specialty Start Date End Date Momo Verdugo MD [address] [place] [phone] PCP - General Family Medicine 02/11/24 Zuly Bruno NP [address] [place] [phone] Nurse Practitioner Family Medicine 02/11/24 Kasandra Thomas DO [address] [place], [place] [id number] Referring Physician Neurology 02/17/24 Team Status: Active Member Role Status Dates Zuly Bruno Primary Care Provider Active Team Status: Inactive Member Role Status Dates Zuly Bruno Primary Care Provider Active Sta rt: December 15, 2024 End: December 15, 2024 Yoselyn Goins MD Attending Provider Active Start: December 15, 2024 End: December 15, 2024 Team Status: Inactive Member Role Status Dates Zuly Bruno Primary Care Provider Active Sta rt: December 26, 2024 End: December 26, 2024 Yoselyn Goins MD Attending Provider Active Start: December 26, 2024 End: December 26, 2024 Team Status: Active Member Role Status Dates Zuly Mejias Kiana Primary Care Provider Active Sta rt: December 26, 2024 Yoselyn Goins MD Attending Provider, Other Provider Active Start: December 26, 2024 Scheduled Active and Recently Administ ered Medications [...] dose on 05/16/22 at 0900, Until Discontinued 0807 (Given - [...] Cook RN)1035 (Stopped - Provider: Leon Cook, SAMI)1322 (Stopped - Provider: Leon Cook RN) mycophenolate [...] RN) 0742 (Given - Provider: Leon Cook, SAMI)1999 (Canceled Entry - Provider: System Discharge - Comment: Automatically canceled at discontinue of medication order) polyethylene glycol (MIRALAX) packet 17 g 17 g, Oral, EVERY 12 HOURS, First dose (after last modification) on Thu05/16/22 at 0900, Until Discontinued 08 (Not Given - Provider: Mel Hampton RN - Reason: Patient with symptoms)1958 (Given - Provider: Carolyn Isaac, SAMI) 113 (Not Given - Provider: Josey Braun [...] at 0900 0805 (Given - Provider: Josey Braun, SAMI) tacrolimus (PROGRAF) capsule 1 mg 1 mg, [...] 08 (Given - Provider: Josey Braun, SAMI) 0933 [...] Carolyn Isaac RN)1822 (Paused - Provider: Carolyn Isaac, SAMI)1823 (Restarted - Provider: Carolyn Isaac RN)1925 (Rate/Dose [...] Holden RN) 0829 (Given - Provider: Terra Herat RN) 0957 (Given - Provider: Cheyanne Mcdonough RN) amLODIPine (NORVASC) tablet 5 mg 5 mg, Oral, EVERY 24 HOURS, First dose on Marta 09/03/23 at 2100, Until Discontinued 2035 (Given - Provider: Girish Nunez RN) 2024 (Given - Provider: Carolyn Plasencia, SAMI) aspirin chewable tablet 81 mg 81 mg, Oral, DAILY, First dose on Thu08/29/23 at 0900, Until Discontinued 0753 (Given - [...] 0829 (Given - Provider: Terra Heart, SAMI) 0907 (Given - Provider: Cheyanne Mcdonough, SAMI) PRN [...] (Given - Provider: Tati Ahmadi RN) 105 (MAR Hold - Provider: Automatic Transfer - [...] 0841 (Given - Provider: Terra Heart RN)105 (MAR [...] 0846 (Given - Provider: Terra Heart RN)1053 ([facility] Hold - Provider: Automatic Transfer - Reason: Transfer to a Procedural area)1414 ([facility] Unhold - Provider: Automatic Transfer) tacrolimus (PROGRAF) susp 0.2 mg 0.2 mg, Oral, CUSTOM FREQUENCY (Once per day on Thursday), First dose on Thu01/16/24 at 0900, Until Discontinued, Caution check route of administration. For sublingual administration, place liquid under tongue and allow absorption. 0842 (Given - Provider: Erica Ross RN) 1053 ([facility] Hold - Provider: Automatic Transfer - Reason: Transfer to a Procedural area)1414 ([facility] Unhold - Provider: Automatic Transfer) 0923 (Given - Provider: Terra Heart RN) Tamsulosin HCl (FLOMAX) capsule 0.4 mg 0.4 mg, Oral, DAILY, First dose on Thu01/16/24 at 0900, Until Discontinued, Slow release product. Do not chew or crush 0842 (Given - Provider: Erica Ross RN) 0841 (Given - Provider: Terra Heart RN)1053 ([facility] Hold - Provider: Automatic Transfer - Reason: Transfer to a Procedural area)1414 ([facility] Unhold - Provider: Automatic Transfer) [...] 0841 (Given - Provider: Terra Heart RN)1053 ([facility] Hold - Provider: Automatic Transfer - Reason: Transfer to a Procedural area)1414 ([facility] Unhold - Provider: Automatic Transfer) [...] from all sources in 24 hours. 1053 ([facility] Hold - Provider: Automatic Transfer - Reason: Transfer to a Procedural area)1414 ([facility] Unhold - Provider: Automatic Transfer)1806 [...] 200-200 mg and Simethicone 20 mg) 1053 ([facility] Hold - Provider: Automatic Transfer - Reason: Transfer to a Procedural area)1414 ([facility] Unhold - Provider: Automatic Transfer) guaiFENesin (ROBITUSSIN) oral solution 400 mg 400 mg, Oral, EVERY 6 HOURS NEEDED, Starting on 01/16/24 at 0202, Until 01/23/24 at 1752, Cough, Congestion 1053 ([facility] Hold - Provider: Automatic Transfer - Reason: Transfer to a Procedural area)1414 ([facility] Unhold - Provider: Automatic Transfer) HYDROmorphone (DILAUDID) injection 0.2 mg (CANCELED) 0.2 mg, Intravenous, EVERY 3 HOURS NEEDED, Starting on 01/22/24 at 1323, Until 01/23/24 at 0821, Severe Pain 2103 (Given - Provider: Tati Ahmadi RN) Lidocaine (XYLOCAINE) 10 mg/mL injection (CANCELED) NEEDED, Starting on Thu01/22/24 at 1248, Until 01/22/24 at 1306, Intra-op/Intra-Proc 1248 (Given - Provider: Jyoti Bryant MD, PhD) Melatonin tablet 6 mg 6 mg, Oral, DAILY AT BEDTIME NEEDED, Starting on 01/19/24 at 0016, Until 01/23/24 at 1752, Insomnia 1053 ([facility] Hold - Provider: Automatic Transfer - Reason: Transfer to a Procedural area)1414 ([facility] Unhold - Provider: Automatic Transfer)2355 (Given - Provider: Tati Ahmadi RN) Ondansetron (ZOFRAN) tablet 4 mg(Linked Group 1) 4 mg, Oral, EVERY 6 HOURS NEEDED, Starting on 01/16/24 at 0202, Until 01/23/24 at 1752, Nausea / Vomiting, 1st line for Nausea/Vomiting 1053 ([facility] Hold - Provider: Automatic Transfer - Reason: Transfer to a Procedural area)1414 ([facility] Unhold - Provider: Automatic Transfer)1809 (See Alternative - Provider: Terra Heart RN) 0430 (See Alternative - Provider: Tati Ahmadi RN)1415 (Given - Provider: Terra Heart RN) Ondansetron 4mg/2ml (ZOFRAN) injection 4 mg(Linked Group 1) 4 mg, Intravenous, EVERY 6 HOURS NEEDED, Starting on 01/16/24 at 0202, Until 01/23/24 at 1752, Nausea / Vomiting, 1st line for Nausea/Vomiting 1053 ([facility] Hold - Provider: Automatic Transfer - Reason: Transfer to a Procedural area)1414 ([facility] Unhold - Provider: Automatic Transfer)1809 [...] 01/23/24 at 1752, Constipation 1st Line 1053 ([facility] Hold - Provider: Automatic Transfer - Reason: Transfer to a Procedural area)1414 ([facility] Unhold - Provider: Automatic Transfer) Prochlorperazine (COMPAZINE) injection 10 mg 10 mg, Intravenous, EVERY 6 HOURS NEEDED, Starting on 01/17/24 at 1538, Until 01/23/24 at 1752, Nausea / Vomiting, Refractory Nausea Vomiting, For IV route: dilute dose with 10mL normal saline and give by slow IV push at a rate of 5mg/min. Maximum of 40mg/day. 1053 ([facility] Hold - Provider: Automatic Transfer - Reason: Transfer to a Procedural area)1414 ([facility] Unhold - Provider: Automatic Transfer)2349 (Given - Provider: Tati Ahmadi RN) 0916 (Given - Provider: Terra Heart, SAMI) [...] the intermittent or piggy back medication. 1053 ([facility] Hold - Provider: Automatic Transfer - Reason: Transfer to a Procedural area)1414 ([facility] Unhold - Provider: Automatic Transfer) No [...] Nausea / Vomiting, 1st line for Nausea/Vomiting Goals (unrecognized section and content) Goals may be documented in a n alternate section FOR RECORDS PERTAINING TO PATIENTS WHO ARE [...] BE BASED ON THE PRIMARY CLINICAL RECORDS. [facility]. provides no warranty or guarantee of the accuracy or completeness of information in this document.
[2024-12-28 07:01] LABS: Basophils Percent Auto 0.7 % (0.2-2.0); Eosinophils Absolute Auto 0.1 10^3/uL (0.0-0.7); Eosinophils Percent Auto 3.1 % (0.9-7.0); Hematocrit 46.8 % (42.0-54.0); Hemoglobin 15.4 g/dL (14.0-18.0); Lymphocytes Absolute Auto 1.5 10^3/uL (1.2-3.8); Lymphocytes Percent Auto 34.5 % (20.5-60.0); Mean Corpuscular HGB Conc 32.9 g/dL (29.9-35.2); Mean Corpuscular Hemoglobin 28.9 pg (25.9-34.0); Mean Corpuscular Volume 87.8 fL (80.0-94.0); Mean Platelet Volume 9.5 fL (9.5-13.5); Monocytes Absolute Auto 0.4 10^3/uL (0.3-0.8); Monocytes Percent Auto 9.8 % (1.7-12.0); Neutrophils Absolute Auto 2.2 10^3/uL (1.4-6.5); Neutrophils Percent Auto 51.9 % (43.0-75.0); Platelet Count 203 10^3/uL (150-450); Red Blood Count 5.33 10^6/uL (4.70-6.10); Red Cell Distribution Width 12.5 % (11.0-15.0); White Blood Count 4.2 10^3/uL (4.0-11.0)
[2024-12-28 07:46] LABS: Alanine Aminotransferase 21 U/L (16-63); Alkaline Phosphatase 91 U/L (46-116); Anion Gap 12.6; Aspartate Amino Transferase 16 U/L (15-37); BUN Creatinine Ratio 10.1; Bilirubin Direct 0.2 mg/dL (0.0-0.2); Bilirubin Total 0.7 mg/dL (0.2-1.0); Calcium 9.4 mg/dL (8.5-10.1); Carbon Dioxide 27.3 mmol/L (21.0-32.0); Chloride 106 mmol/L (98-107); Estimated GFR (African America >60 (>=60 mL/min/1.73m^2); Estimated GFR (Non-African Ame 53 (>=60 mL/min/1.73m^2); Gamma Glutamyl Transpeptidase 20 U/L (15-85); Glucose 107 mg/dL (74-106); Magnesium 1.8 mg/dL (1.8-2.4); Phosphorus 2.7 mg/dL (2.6-4.7); Potassium 3.9 mmol/L (3.5-5.1); Sodium 142 mmol/L (136-145)
[2025-01-01 14:07] LABS: Tacrolimus (FK506), Blood 6.2 ng/mL (2.0-20.0)
== END 2024-12-28 06:37 | disposition home or self-care (01) ==
LOC: LAB 06:41
PROVIDERS: PCP Nurse Practitioner
DX: Z79.899 Other long term (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 (principal); Z94.4 Liver transplant status; Z48.298 Encounter for aftercare following other organ transplant; Z51.81 Encounter for therapeutic drug level monitoring
CPT/HCPCS: 36415; 80048; 80197; 82042; 82247; 82248; 82977; 83735; 84075; 84100; 84450; 84460; 85025

== ENCOUNTER 2025-01-31 06:33 | Outpatient (OUT) | payer MEDICARE, SELFPAY ==
--- OUTSIDE RECORDS SUMMARY | 2025-01-31 06:42 | XMS_ITS | CCD ---
Author Organization [facility] Care Team Providers Care Quantitative Associate Name Role Phone Kiana Zuly Unavailable Unavailable [...] Unavailable AICHHOLZ, ZULY Primary Care Unavailable Aichholz [facility], [facility] Primary Care Provider Miguel [facility],PharmD, Angel Unavailable Unavailab makayla [facility],PharmD, Te Unavailable Unavai lable Aicholz [facility] Primary Care Provider CRISTINA, DR BURCH Admitting Unavailable MISC, DR BURCH Consulting Unavailable AICHHOLZ, TRAILHEAD MAINTENANCE WORKER ZULY Primary Care Unavailable MISC, DR BURCH Attending Unavailable MISC, DR BURCH Admitting Unavailable MISC, DR BURCH Consulting Unavailable AICHHOLZ, TRAILHEAD MAINTENANCE WORKER ZULY Primary Care Unavailable MISC, DR BURCH Attending Unavailable ARCELIA PIZARRO Consulting Unavailable KE BURNHAM Attending Unavailable KE BURNHAM Admitting Unavailable DR MÓNICA JIMENEZ Consulting Unavailable AICHHOLZ, TRAILHEAD MAINTENANCE WORKER ZULY Primary Care Unavailable KE BURNHAM Consulting Unavailable MISC, DR BURCH Consulting Unavailable MISC, DR BURCH Attending Unavailable AICHHOLZ, TRAILHEAD MAINTENANCE WORKER ZULY Primary Care Unavailable MISC, DR BURCH Admitting Unavailable MISC, DR BURCH Consulting Unavailable MISC, DR DOCTOR Attending Unavailable AICHHOLZ, TRAILHEAD MAINTENANCE WORKER ZULY Primary Care Unavailable MISC, DOCTOR Admitting Unavailable MISC, DR DOCTOR Consulting Unavailable AICHHOLZ, TRAILHEAD MAINTENANCE WORKER ZULY Primary Care Unavailable MISC, DOCTOR Admitting Unavailable MISC, DR DOCTOR Attending Unavailable MELINDA, DR GEORGE Munoz Consulting Unavailable MELINDA, DR GEORGE Munoz Attending Unavailable AICHHOLZ, TRAILHEAD MAINTENANCE WORKER ZULY Primary Care Unavailable MELINDA, DR GEORGE Munoz Admitting Unavailable NAUN ., KE Consulting Unavailable MIRANDA, LYNDSAY Consulting Unavailable MELINDA, DR GEORGE Munoz Consulting Unavailable NAUN ., KE Attending Unavailable NAUN ., KE Admitting Unavailable AICHHOLZ, TRAILHEAD MAINTENANCE WORKER ZULY Primary Care Unavailable NAUN ., KE Consulting Unavailable GIAN HERRING Consulting Unavailable AICHHOLZ, TRAILHEAD MAINTENANCE WORKER ZULY Consulting Unavailable AICHHOLZ, TRAILHEAD MAINTENANCE WORKER ZULY Attending Unavailable AICHHOLZ, TRAILHEAD MAINTENANCE WORKER ZULY Admitting Unavailable AICHHOLZ, TRAILHEAD MAINTENANCE WORKER ZULY Primary Care Unavailable MISC, DOCTOR Consulting Unavailable MISC, DOCTOR Admitting Unavailable MISC, DOCTOR Attending Unavailable AICHHOLZ, TRAILHEAD MAINTENANCE WORKER ZULY Primary Care Unavailable MISC, DR DOCTOR Consulting Unavailable MISC, DR DOCTOR Attending Unavailable MISC, DR DOCTOR Admitting Unavailable AICHHOLZ, TRAILHEAD MAINTENANCE WORKER ZULY Primary Care Unavailable MISC, DOCTOR Admitting Unavailable MISC, DOCTOR Consulting Unavailable MISC, DR DOCTOR Attending Unavailable AICHHOLZ, TRAILHEAD MAINTENANCE WORKER ZULY Primary Care Unavailable MISC, DOCTOR Admitting Unavailable MISC, DR DOCTOR Consulting Unavailable AICHHOLZ, TRAILHEAD MAINTENANCE WORKER ZULY Primary Care Unavailable MISC, DR DOCTOR Attending Unavailable MISC, DOCTOR Admitting Unavailable MISC, DR DOCTOR Consulting Unavailable AICHHOLZ, TRAILHEAD MAINTENANCE WORKER ZULY Primary Care Unavailable MISC, DR DOCTOR Attending Unavailable AICHHOLZ, TRAILHEAD MAINTENANCE WORKER ZULY Consulting Unavailable AICHHOLZ, TRAILHEAD MAINTENANCE WORKER ZULY Attending Unavailable AICHHOLZ, TRAILHEAD MAINTENANCE WORKER ZULY Admitting Unavailable AICHHOLZ, TRAILHEAD MAINTENANCE WORKER ZULY Primary Care Unavailable DR MÓNICA JIMENEZ Consulting Unavailable Aichholz [facility], Zuly Primary Care Provider Evan White DO Unavailable [phone] Aichholz [facility], Zuly Primary Care Provider Evan White DO Unavailable Momo Verdugo MD Primary Care Provider Aichholz TRAILHEAD MAINTENANCE WORKER, Zuly Primary Care Provider MIGUEL CARDONA Attending Unavailable AICHHOLZ, ZULY J Primary Care Physician [phone] Kartik LUZ, Momo Primary Care Provider Aichholz INSURANCE INSPECTOR, Zuly Unavailable Kasandra Thomas DO Unavailable AICHHOLZ, [...] ZULY Attending Unavailable AICHHOLZ, ZULY Attending Unavailable Aichholz, Zuly J Primary Care Provider Briseida LUZ, Yoselyn Attending Provider Aichlatishaz, Zuly J Primary Care Unavailable Asaad, Imad Attending Unavailable Asaad, Imad Admitting Unavailable AICHHOLZ, ZULY J Referring Unavailable Clementina Montesinos Attending Unavailable Orzech, Steph X Attending Unavailable Orzech, Steph X Attending Unavailable Orzech, Steph X Attending Unavailable KELVIN PACHECO Referring Unavailable ALMAGUERCANDIE IVORY Attending Unavailable AICHHOLZ, ZULY Primary Care Unavailable KELVIN PACHECO Referring Unavailable ALMAGUERCANDIE IVORY Attending Unavailable AICHHOLZ, ZULY Primary Care Unavailable EVAN WHITE Attending Unavailabl e AICHHOLZ, ZULY Primary Care Unavailable SELF, SELF Referring Unavailable SELF, SELF Referring Unavailable DELLAATUL DAISHA Tray Attending Unavailable AICZULY STEVE Primary Care Unavailable SELF, SELF Referring Unavailable REBECA GUTIERREZ Attending Unavailable AICHHOLZ, ZULY Primary Care Unavailable SELF, SELF Referring Unavailable AICHHOLZ, ZULY Primary Care Unavailable HAKEEM ALAMO Attending Unavailable Allergies Allergy Classification Reported Allergen(s) Allergy Type Date of Onset Reaction(s) Facility (3 sources) Shellfish; Translations: [SHELLFISH DERIVED] Propensity to adverse reactions (disorder) 8 [facility] Repository (20 sources) Shellfish-Deriv ed Products Propensity to adverse reactions to drug 9 [facility] (5 sources) Shellfish; Translations: [shellfish] Drug allergy (disorder) Anaphylaxis (disorder) [facility] Repository Medications Current Medications Medication Drug Class(es) Dates Sig (Normalized) Sig (Original) amLODIPine 5 mg oral tablet (20 sources) Dihydropyridine Calcium Channel Melissa Start: 08-12-2024 End: 11-10-2024 take 1 tablet by mouth once daily amLODIPine (Norvasc) 5 MG tablet Indications: Primary hypertension (CMS/HCC) Take 1 tablet (5 mg) by mouth Daily 90 tablet 1 08/12/2024 Active Start: 02-08-2024 take 1 tablet by magy once daily amLODIPine (Norvasc) 5 MG tablet [...] 1 capsule by mouth once daily b knxghso-H-mlnjf acid (NEPHROCAPS) 1 MG capsule Take 1 capsule by mouth daily 0 Active aspirin 81 mg delayed release oral tablet (20 sources) Platelet Aggregation Inhibitor, Nonsteroidal Anti-inflammatory Drug Start: 09-08-20 Aspirin (Adult Low Dose Aspirin) 81 mg tablet,delayed release (DR/EC) Active 81 MG PO Daily December 15, 2024 12:00am Start: 10-08-2020 End: 01-23-2024 aspirin 81 MG [...] days. 28 tablet 0 06/12/2022 06/26/2022 Active doxycycline hyclate 100 mg oral capsule (1 source) Tetracycline-class Drug Start: 025 End: take 1 capsule by mouth twice daily doxycycline hyclate 100 mg Cap 100 mg = 1 cap(s), Oral, BID, may substitute hyclate for monohydrate based on availability, X 4 week(s), # 56 cap(s), Refills(s) 0, Pharmacy: [id number], 170, cm, 01/03/25 11:03:00 EST, Height/Length Dosing, 90, kg, 01/03/25 11:03:00 EST, Weight Dosing Start Date: 01/03/25 Stop Date: 01/31/25 Status: Ordered Drug or medicament (substance) (1 source) Start: famotidine 20 mg oral tablet (20 sources) Histamine-2 Receptor Antagonist Start: End: take 1 tablet by mouth in the morning famotidine (Pepcid) 20 MG tablet Indications: Gastroesophageal reflux disease, unspecified whether esophagitis present Take 1 tablet (20 mg) by mouth in the morning and 1 tablet (20 mg) before bedtime. 180 tablet 1 08/23/2024 Active Start: 01-16-2024 End: 01-23-2024 take 20 [...] oral capsule (20 sources) Anti-epileptic Agent Start: 01-06-2025 End: 04-06-2025 take 1 capsule by mouth at bedtime gabapentin (Neurontin) 400 MG capsule Indications: Other polyneuropathy Take 1 capsule (400 mg) by mouth at bedtime 90 capsule 1 01/06/2025 04/06/2025 Active Start: 06-07-2023 End: 09-25-2024 take 1 capsule by mouth at bedtime gabapentin 400 mg Cap take 1 capsule by mouth at bedtime Start Date: 09/08/24 Status: Ordered Start: 05-15-2022 End: 05-20-2022 take 400 mg [...] DAILY (Solid Organ Transplant), First dose on [facility] 01/16/24 at 0800, Until Discontinued, [...] 10 days Start Date: 09/08/24 Status: Ordered take 1 tablet by magy every eight hours as needed for nausea and vomiting ondansetron (Zofran) 4 MG tablet Take 1 tablet by mouth every 8 (eight) hours if needed for nausea or vomiting Active polyethylene glycol 3350 51942 mg powder for oral solution (20 sources) [...] 1 tablet by mouth three times weekly sulfamethoxazole-t rimethoprim (Bactrim DS) 800-160 MG per tablet Take [...] capsule (20 sources) Calcineurin Inhibitor Immunosuppressant Start: 11-22-2024 take 1 capsule by mouth twice daily Tacrolimus 0.5 mg capsule Active 0.5 MG PO Twice daily December 15, 2024 12:00am Start: 10-03-2024 take 1 capsule by [facility] once daily in the morning Tacrolimus (PROGRAF) [...] 03-24-2024 End: 09-03-2024 Prograf 0.2 MG pack 03/24/2008/23/2024 Discontinued Start: 03-04-2024 End: 06-17-2024 take 1 [...] day(s), # 180 cap(s), Refills(s) 3, Pharmacy: [id number], 170, cm, 09/08/24 14:00:00 EDT, Height/Length Dosing, 90, kg, 09/08/24 14:00:00 EDT, Weight Dosing Start Date: 11/22/24 Stop Date: 11/17/25 Status: Ordered Start: 08-10-2024 End: 10-01-2024 take [...] Active Start: 06-08-2023 take 1 capsule by [facility] once daily Tamsulosin HCl 0.4 MG capsule take 1 capsule by mouth once daily 30 capsule 11 06/08/2023 Active Start: 06-19-2022 take 1 capsule by [facility] once daily Tamsulosin HCl 0.4 MG capsule Take 1 capsule by mouth daily. 30 capsule 11 06/19/2022 Active Start: 05-23-2022 take 1 capsule by [facility] once daily Tamsulosin HCl 0.4 MG [...] NEEDED, Starting on 09/04/23 at 0405, Until Thu09/04/23 at 0926, Moderate [...] 26, 2018 11:00pm September 27, 2018 7:04pm allopurinol 100 mg oral tablet (20 sources) [...] itraconazole Fax results to: Dr. White - [phone] Transplant [facility] - [phone] Each 09/10/2023 01/19/2024 Discontinued (Medication Reconciliation (suppress cancel msg)) Start: 09-10-2023 CUSTOM MEDICAT ION Labs to be obtained: 1- Tacrolimus level, trough - collect twice weekly until 09/24/23, then weekly until 10/08/23, them once every two weeks there after. 2- Itraconazole level - obtain once between 09/14-09/18. 3- Chem 6 - Obtain weekly while on itraconazole Fax results to: Dr. White - [phone] Transplant Neph - [phone] Each 0 09/10/2023 Active Diatrizoate (1 [...] jorge rile water 50 ml premix IVPB 2 [...] 27, 2018 10:05am take 2 tablets by [facility] three times daily as needed midodrine (PROAMATINE) 5 MG tablet Take 10 mg by mouth 3 times daily Prn with dialysis 0 Active take 2 tablets by [facility] once daily as needed midodrine 5 MG [...] Discharge) Start: 09-06-2020 take 1 tablet by [facility] once daily multivitamin w/ minerals tablet Take [...] AN PO) Take by mouth. Active sennosides, assisted 8.6 mg oral tablet (1 [...] Start: 07-17-2018 take 1 tablet by magy th three times daily at mealtime sevelamer 800 [...] tablet Discontinued 1 GM PO Q6H 56 14 January 18, 2020 12:00am December 15, 2024 9:21am tadalafil 10 mg oral tablet (2 sources) Phosphodiesterase 5 Inhibitor Start: 11-22-2024 take 1 tablet by mouth every hour, then take 2 tablets by mouth every twenty-four hours Cialis 10 mg Tab 10 mg = 1 tab(s), Oral, As Directed, take 1 tab at least 1 hr prior to intercourse, do not exceed 20 mg (2 tab) in 24 hrs, # 30 tab(s), Refills(s) 5, Pharmacy: [id number], 170, cm, 11/22/24 9:39:00 EST, Height/Length [...] Date Episodic/Chronic Acute and unspecified renal failure (2 sources) Chronic renal failure Onset: 9 11-22-2024 Chronic Anxiety disorders (20 sources) Generalized anxiety disorder; Translations: [Generalized anxiety disorder] Onset: 3 11-03-2023 Chronic Chronic kidney disease (20 sources) End stage renal failure on dialysis; Translations: [End-stage renal disease] Onset: 8 06-22-2018 Chronic Comment on above: Outside Source Comme nt: Overview: Added automatically from request for surgery [id number] Coagulation and hemorrhagic disorders (4 sources) Hypercoagulability state; Translations: [Other primary thrombophilia] 08-21-2018 Chronic Congestive heart failure; nonhypertensive (20 sources) Acute diastolic heart failure; Translations: [Acute diastolic (congestive) heart failure] Onset: 4 01-20-2024 Chronic Coronary atherosclerosis and other heart disease (20 sources) Coronary arteriosclerosis; Translations: [Atherosclerotic heart disease of [place] coronary artery without angina pectoris] Onset: 3 [...] [HEADACHE UNSPECIFIED] Onset: 2 Hyperplasia of prostate (10 sources) Benign prostatic hypertrophy with outflow obstruction; Translations: [Benign prostatic hyperplasia with lower urinary tract symptoms] Onset: 2 Chronic Hypertension with complications and secondary hypertension (1 source) Renal hypertension; Translations: [Hypertension secondary to other renal disorders] 08-28-2023 Chronic Immunity disorders (20 sources) Immunosuppression; Translations: [Immunodeficiency, unspecified] Onset: 2 Chronic Inflammatory conditions of male genital organs (1 source) Prostatitis; Translations: [Inflammatory disease of prostate, unspecified] Onset: 5 Episodic Nutritional deficiencies (2 sources) Moderate protein energy malnutrition; Translations: [Moderate protein-calorie malnutrition] 08-04-2018 Chronic Osteoporosis (19 sources) Osteoporosis; Translations: [Other osteoporosis without current pathological fracture] Onset: 4 09-08-2024 Chronic Other aftercare (3 sources) Transplant follow-up; Translations: [Encounter for aftercare following other organ transplant] Chronic Other aftercare (1 source) Encounter for aftercare following other organ transplant; Translations: [[facility]] Onset: 3 Chronic Other aftercare (1 source) Follow-up status; Translations: [Encounter for follow-up examination after completed treatment for conditions other than malignant neoplasm] Episodic Other aftercare (3 sources) Taking high risk medication; Translations: [Other superintendent terminal (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] Episodic Other aftercare (1 source) Patient encounter status; Translations: [Encounter for therapeutic drug level monitoring] 06-17-2024 Episodic Other and ill-defined heart disease (20 sources) Dysfunction of papillary muscle; Translations: [Other ill-defined heart diseases] Onset: 3 11-03-2023 Chronic Other and ill-defined heart disease (20 sources) Diastolic dysfunction; Translations: [Other ill-defined heart [...] Translations: [Irritable bowel syndrome] 12-15-2024 Chronic Other gastrointestinal disorders (1 source) Change in bowel habit; Translations: [Change in bowel habit] Onset: 5 Episodic Other gastrointestinal disorders (1 source) Heartburn; Translations: [Heartburn] Onset: 5 Episodic Other liver diseases (20 sources) Cirrhosis of [...] Overview: Added automatically from request for surgery [id number] Other liver diseases (3 sources) Liver transplant [...] [Hypoxemia] 09-10-2023 Episodic Other male genital disorders (3 sources) Male erectile dysfunction, unspecified; Translations: [Erectile dysfunction] Onset: 4 Chronic Other nervous system disorders (20 sources) Peripheral nerve disease ; Translations: [Polyneuropathy, unspecified] Onset: 4 12-03-2023 Chronic Other nervous system disorders (1 source) Polyneuropathy; Translations: [Other specified polyneuropathies] 01-05-2025 Chronic Other nutritional; endocrine; and metabolic disorders [...] [Other pericardial effusion (noninflammatory)] Onset: 4 Unclassified (3 sources) Patient encounter status 11-22-2024 Past or Other Problems Problem Classification Problem Date Documented Da te Episodic/Chronic Abdominal hernia (20 sources) Umbilical hernia; Translations: [Umbilical hernia without obstruction or gangrene] Onset: 4 02-11-2024 Episodic Abdominal pain (20 sources) Generalized abdominal pain; [...] Overview: Added automatically from request for surgery [id number] Allergic reactions (20 sources) Eczema; Translations: [Dermatitis, unspecified] Onset: 4 [...] unspecified] Onset: 2 Episodic Malaise and fatigue (20 sources) Asthenia; Translations: [Weakness] Onset: 4 02-18-2024 Episodic Mood disorders (20 sources) Mood disorders Onset: 4 02-11-2024 Mycoses (20 sources) Histoplasmosis; Translations: [Histoplasmosis, unspecified] Onset: 3 09-10-2023 Episodic Nausea and vomiting (20 sources) Nausea and vomiting; Translations: [Nausea with vomiting, unspecified] Onset: 0 05-10-2020 Episodic Other aftercare (1 source) Other superintendent terminal (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; Translations: [OTH JAIL 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 THERAPY] Onset: 2 Episodic Other aftercare (1 source) long-term (current) use of aspirin; Translations: [STATISTICAL DEVELOPER CURRENT USE OF ASPIRIN] Onset: 2 Episodic [...] OBST] Onset: 2 Episodic Other gastrointestinal disorders (20 sources) Constipation; Translations: [Other constipation] Onset: 4 08-23-2024 Episodic Other liver diseases (20 sources) Hepatic encephalopathy; Translations: [Hepatic failure, unspecified without coma] Onset: 8 10-19-2018 Episodic Other liver diseases (20 sources) Hepatic failure; Translations: [Hepatic failure, unspecified without coma] Onset: 0 04-09-2020 Episodic Other lower respiratory disease (20 sources) Dyspnea; Translations: [Shortness of breath] Onset: 4 01-06-2024 Episodic Other nervous system disorders (20 sources) Tremor; Translations: [Tremor, unspecified] Onset: 3 11-03-2023 Episodic Other nutritional; endocrine; and metabolic disorders (20 sources) Body mass index 25-29 - overweight; Translations: [Overweight] Onset: 4 04-18-2024 Episodic Other screening for suspected conditions (not mental disorders or infectious disease) (20 sources) Abnormal quantity of physiologic substance; Translations: [Blood chemistry abnormal] Onset: 8 06-22-2018 Episodic Pancreatic disorders (not diabetes) (20 sources) Pancreatitis; Translations: [Acute pancreatitis without necrosis [...] Interpretation Reference Range Facility Ambulatory Visit Summaryon 0 01-03-2025 Ambulatory Visit Summary Ambulatory Visit Summary GEORGE STYLES Tray :1970 Visit Date:01/03/2025 Ambulatory Visit Instructions Your Diagnosis Prostatitis BPH with urinary obstruction Erectile dysfunction Screening PSA (prostate specific antigen) History of kidney transplant Your Care Team Attending Physician - JONATHAN Almodovar APRN, [facility] Primary Care Physician - ZULY BRUNO CNP This Is Your Medications List doxycycline (doxycycline hyclate 100 mg Cap) Contact prescribing physician if questions or concerns allopurinol (allopurinol 100 mg Tab) amlodipine (amLODIPine 5 mg Tab) aspirin (aspirin 81 mg Oral EC Tab) famotidine (famotidine 20 mg Tab) gabapentin (gabapentin 400 mg Cap) melatonin (melatonin 3 mg oral disintegrating strip) mycophenolic acid (mycophenolic acid 360 mg oral enteric coated tablet) ondansetron (ondansetron 4 mg Dis Tab) polyethylene glycol 3350 (polyethylene glycol 3350 17 gram packet) sulfamethoxazole-trimethopr im (sulfamethoxazole-trimethop rim 800 mg-160 mg Tab) tacrolimus (tacrolimus 0.5 mg oral capsule) tadalafil (Cialis 10 mg Tab) tamsulosin (tamsulosin 0.4 mg Cap) torsemide (torsemide 20 mg Tab) Procedures Performed Colonoscopy (12/26/2024), Esophagogastroduodenoscopy (12/26/2024), Kidney transplant (2019), Transplantation of liver (2019). Discharge Vitals Heart Rate (Peripheral) 67 Respiratory Rate 16 Blood Pressure 124/88 Height 170 cm Height 67 in Weight 90 kg Weight 198.416 lb BMI 31.14 What to do next Scheduled Follow-Up Appointments Feb. 2024 10:20 AM EDT With: JONATHAN Almodovar APRN, [facility] Where: [facility] [address] [place] [address]- You Need to Schedule the Following Appointments Follow Up with JONATHAN Almodovar APRN, [facility], FAM, URL When: Where: Medications What How Much When Instructions New doxycycline (doxycycline hyclate 100 mg Cap) 1 Capsules By Mouth 2 times a day Duration: 4 Weeks may substitute hyclate for monohydrate based on availability Pickup at [id number] Unchanged allopurinol (allopurinol 100 mg Tab) 1 Tablets TAKE 2 TABLETS BY MOUTH DAILY Contact prescribing physician if questions or concerns Unchanged amlodipine (amLODIPine 5 mg Tab) 1 Tablets TAKE 1 TABLET BY MOUTH DAILY Contact prescribing physician if questions or concerns Unchanged aspirin (aspirin 81 mg Oral EC Tab) 1 Tablets By Mouth Every day Contact prescribing physician if questions or concerns Unchanged famotidine (famotidine 20 mg Tab) 1 Tablets TAKE 1 TABLET BY MOUTH TWICE DAILY (IN THE MORNING and BEFORE bedtime) Contact prescribing physician if questions or concerns Unchanged gabapentin (gabapentin 400 mg Cap) take 1 capsule by mouth at bedtime Contact prescribing physician if questions or concerns Unchanged melatonin (melatonin 3 mg oral disintegrating strip) By Mouth Contact prescribing physician if questions or concerns Unchanged mycophenolic acid (mycophenolic acid 360 mg oral enteric coated tablet) 2 Tablets Contact prescribing physician if questions or concerns Unchanged ondansetron (ondansetron 4 mg Dis Tab) Take 1 tablet by mouth every 8 hours if needed for nausea or vomiting for up to 10 days Contact prescribing physician if questions or concerns Unchanged polyethylene glycol 3350 (polyethylene glycol 3350 17 gram packet) By Mouth Every day Contact prescribing physician if questions or concerns Unchanged sulfamethoxazole-trimethopr im (sulfamethoxazole-trimethop rim 800 mg-160 mg Tab) Contact prescribing physician if questions or concerns Unchanged tacrolimus (tacrolimus 0.5 mg oral capsule) 60 cap(s), 0 Refill(s) Contact prescribing physician if questions or concerns Unchanged tadalafil (Cialis 10 mg Tab) 1 Tablets By Mouth As Directed take 1 tab at least 1 hr prior to intercourse, do not exceed 20 mg (2 tab) in 24 hrs Contact prescribing physician if questions or concerns Unchanged tamsulosin (tamsulosin 0.4 mg Cap) 1 Capsules By Mouth 2 times a day Duration: 90 Days Contact prescribing physician if questions or concerns Unchanged torsemide (torsemide 20 mg Tab) 1 Tablets TAKE 1 TABLET BY MOUTH ONCE DAILY Contact prescribing physician if questions or concerns Pharmacy Information [id number]: [address] [place], [place] [id number] [phone] Allergies shellfish (Anaphylaxis) Problems Ongoing - Any problem that you are currently receiving treatment for. Acute kidney injury Alcoholic cirrhosis Anemia Benign essential hypertension BPH with urinary obstruction Chronic liver disease Chronic renal failure Coronary arteriosclerosis End-stage renal disease Erectile dysfunction Hepatic encephalopathy History of kidney transplant Prostate cancer screening Screening PSA (prostate specific antigen) Patient Survey You may receive a survey via text or e-mail asking a (more content not included)... [facility] Urology Office/Clinic Noteon 01-03-2025 Urology Office/Clinic Note Urology Office/Clinic Note Chief Complaint Urine stream HPI Staff Here d/t changes in urinary stream. Last seen 2 mos ago. Prior OV: started cialis 10 mg prn *tamsulosin 0.4 mg bid PSA 09/15/22 - 0.79 08/29/24- 0.85 PVR: 90 ml Dysuria: _has some pain and burning Incomplete bladder emptying: about half the time Hematuria: denies Frequency: once every 2-3 hours Urgency: denies Nocturia: once a night Stream: has straining, has a weak stream, urine stream sprays has stop and go Leaking: denies Post void dripping: yes Wearing pads/ Depends: denies Urge incontinence: denies Stress incontinence: denies Incontinence without Sensory Awareness: denies Abdominal pain: lower abdominal pain, right side Flank pain: has some lower back pain Sexual complaints: _ History of Present Illness Tests reviewed: UA & PSA I have reviewed the previous health record information and history for this patient from JONATHAN Martino APRN. I have reviewed and verified the staff HPI to be accurate for this encounter. Review of Systems PHQ Score Initial Depression Screen Score: 2 SCORE ROS - Provider Constitutional: denies weight loss, denies hot flashes. Eyes: denies eye problems. Gastrointestinal: denies nausea, denies vomiting. Cardiovascular: denies chest pain or angina. Integumentary: no dryness Musculoskeletal: denies musculoskeletal symptoms. ENMT: denies otolaryngeal symptoms. Respiratory: no shortness of breath. Heme/Lymph: denies easy bleeding tendency, denies easy bruising tendency. Psychiatric: no confusion, no anxiety. Genitourinary: See HPI. Physical Exam Vitals & Measurements HR: 67(Peripheral) RR: 16 BP: 124/88 HT: 67 in HT: 170 cm WT: 90 kg WT: 198.416 lb BMI: 31.14 General Appearance: alert, no distress, well nourished, well developed male. Assessment/Plan Here d/t changes in urinary stream. Last seen 2 mos ago. 1. Prostatitis (N41.9: Inflammatory disease of prostate, unspecified) UA today w/ small blood, PVR 90 ml pt c/o spraying urine stream, feels perineal pressure, dysuria all worsened since colonoscopy 1 week ago. Denies gross hematuria or pain w/ ejaculation. Discussed suspicion for prostatitis. He was advised about the different possible causes of bacterial and non-bacterial prostatitis. He needs to complete the course of prescribed antibiotics. He understands that the symptoms improve if he decreases his exercise and activity level. Anti-inflammatory medicines can also be helpful, as well as frequent ejaculations. Hot baths are also helpful in easing the discomfort. Increase fluid intake, avoid bladder irritants ER for fever, NV, severe flank pain, inability to urinate -Start doxycycline x4 weeks -f/u 2 mos, sooner if needed 2. BPH with urinary obstruction (N40.1: Benign prostatic hyperplasia with lower urinary tract symptoms) IPSS 16 (23) PVR today 90mL UA today shows small blood. Reviewed UA w pt today IO. Increased the Tamsulosin to BID at last OV. Urination overall is improved from previously, but still overall dissatisfied w/ urination. Briefly discussed a Cysto in the future if sxs do not improve after tx of prostatitis. -Cont Tamsulosin 0.4mg BID Follow up FEBRUARY or sooner if needed. Pt understands and agrees with plan. Ordered: 94770 Measure Post Void residual urine and/or bladder capacity by US- non-imaging Urnls Dip Stick Auto w/o Microscopy POC 71332 3. Erectile dysfunction (N52.9: Male erectile dysfunction, unspecified) LINDEN (3) Started taking Cialis 10mg PRN at prior OV. Ordered: Urnls Dip Stick Auto w/o Microscopy POC 28485 4. Screening PSA (prostate specific antigen) (Z12.5: Encounter for screening for malignant neoplasm of prostate) PSA 09/15/22 - 0.79 08/29/24 - 0.85 Reviewed PSA w patient today. Ordered: Urnls Dip Stick Auto w/o Microscopy POC 64160 5. History of kidney transplant (Z94.0: Kidney transplant status) 08/29/24 - BUN 18, Cre 1.3, GFR 58 Pt had liver and kidney transplant in 2019 and follows yearly with [facility]. [1] Pt reports being on Bactrim 3x weeks for kidney transplant. Ordered: Urnls Dip Stick Auto w/o Microscopy POC 85205 Orders: doxycycline, 100 mg = 1 cap(s), Oral, BID, may substitute hyclate for monohydrate based on availability, X 4 week(s), # 56 cap(s), Refills(s) 0, Pharmacy: [facility], 170, cm, 01/03/25 11:03:00 EST, Height/Length Dosing, 90, kg, 01/03/25 11:03:00 E... Follow-up With When Contact Information JONATHAN Almodovar APRN, Steph Wilson, FAM, URL Additional Instructions: Follow up FEBRUARY or sooner if needed Patient Education Benign Prostatic Hyperplasia I, Diana De La Vega, personally scribed for JONATHAN Martino APRN on 01/03/2025 11:26:59. . Documentation recorded by the aguilar De La Vega accurately reflects the services(s) I performed and decisions made by me. Authenticat (more content not included)... [facility] Comment on above: Result Comment: Elec tronically Signed By: JONATHAN Almodovar APRN, Steph Wilson\.br\Date and Time Signed: 01/03/25 11:33 EST\.br\Electronically Co-Signed By: Diana De La Vega\.br\Date and Time Co-Signed: 01/03/25 11:27 EST ALL CBC WITH AUTO DIFFon BASOPHILS ABSOLUTE AUTO 0 [facility] Basophils/100 WBC (Bld) 0.7 % 0.2 - 2.0 % [facility] Eosinophils/100 WBC (Bld) 3.1 % 0.9 - 7.0 % [facility] Erythrocyte distribution width (RBC) [Ratio] 12.5 % 11.0 - 15.0 % [facility] Hematocrit (Bld) [Volume fraction] 46.8 % 42.0 - 54.0 % [facility] Hemoglobin (Bld) [Mass/Vol] 15.4 g/dL 14.0 - 18.0 g/dL [facility] IMMATURE GRANULOCYTES ABS AUTO 0 [facility] Immature granulocytes/100 WBC (Bld) 0 % 0.0 - 0.5 % [facility] LYMPHOCYTES ABSOLUTE AUTO 1.5 [facility] Lymphocytes/100 WBC (Bld) 34.5 % 20.5 - 60.0 % [facility] MCH (RBC) [Entitic mass] 28.9 pg 25.9 - 34.0 pg [facility] MCHC (RBC) [Mass/Vol] 32.9 g/dL 29.9 - 35.2 g/dL [facility] MCV (RBC) [Entitic vol] 87.8 fL 80.0 - 94.0 fL [facility] MONOCYTES ABSOLUTE AUTO 0.4 [facility] Monocytes/100 WBC (Bld) 9.8 % 1.7 - 12.0 % [facility] NEUTROPHILS ABSOLUTE AUTO 2.2 [facility] Neutrophils/100 WBC (Bld) 51.9 % 43.0 - 75.0 % [facility] Platelet mean volume (Bld) [Entitic vol] 9.5 fL 9.5 - 13.5 fL [facility] EO # 0.1 [facility] PLT 203 [facility] RBC 5.33 [facility] TB WBC 4.2 [facility] Ambulatory Visit Summaryon 1 01-23-2024 Ambulatory Visit [...] 3350 (polyethylene glycol 3350 17 gram packet) sulfamethoxazole-trimethopr im (sulfamethoxazole-trimethop rim 800 mg-160 mg Tab) tacrolimus (tacrolimus 0.5 [...] gram packet) By Mouth Every day Unchanged sulfamethoxazole-trimethopr im (sulfamethoxazole-trimethop rim 800 mg-160 mg Tab) Unchanged tacrolimus (tacrolimus [...] for choosing us for your care. [facility] Reminderson 11-22-2024 Reminders Reminders From: Paulina Morales To: EU - Administrative; Sent: 11/22/2024 09:52:41 EST Show up: 01/28/2025 09:52:00 EST Subject: Ambulatory Reminder Due Date/Time: 03/09/2025 09:52:00 EDT Reminder/Recall Patient needs scheduled with [facility] for a 4 month F/U, he schedule is not built yet. Due back in February 2025 [facility] Urology Office/Clinic Noteon 11-22-2024 Urology Office/Clinic Note [...] with voice recognition artificial intelligence software, specifically [employer], [employer] and or [employer]. Substitutions may have occurred due to the [...] -Follow-up 4 months per patient preference Ordered: [id number] Measure Post Void residual urine and/or bladder capacity by US- non-imaging Urnls Dip Stick Auto w/o Microscopy POC 88812 2. Erectile dysfunction (N52.9: Male erectile dysfunction, [...] transplant in 2019 and follows yearly with [facility]. [1] Orders: tadalafil, 10 mg = 1 tab(s), Oral, As Directed, take 1 tab at least 1 hr prior to intercourse, do not exceed 20 mg (2 tab) in 24 hrs, # 30 tab(s), Refills(s) 5, Pharmacy: [address], 170, cm, 11/22/24 9:39:00 EST, Height/Length Dosing, 90, kg, 12... tamsulosin, 0.4 mg = 1 cap(s), Oral, BID, X 30 day(s), # 60 cap(s), Refills(s) 11, Pharmacy: [facility] [address], 170, cm, 09/08/24 14:00:00 EDT, Height/Length Dosing, 90, kg, 09/08/24 14:00:00 EDT, Weight Dosing tamsulosin, 0.4 mg = 1 cap(s), Oral, BID, X 90 day(s), # 180 cap(s), Refills(s) 3, Pharmacy: [facility] [address], 170, cm, 09/08/24 14:00:00 EDT, [...] liver disease (more content not included)... [facility] Comment on above: Result Comment: Elec tronically Signed By: JONATHAN Almodovar APRN, Steph Wilson\.br\Date and Time Signed: 11/22/24 09:58 EST ALL CBC WITH AUTO DIFFon BASOPHILS ABSOLUTE AUTO 0 [facility] Basophils/100 WBC (Bld) 0.7 % 0.2 - 2.0 % [facility] Eosinophils/100 WBC (Bld) 2.6 % 0.9 - 7.0 % [facility] Erythrocyte distribution width (RBC) [Ratio] 12.5 % 11.0 - 15.0 % [facility] Hematocrit (Bld) [Volume fraction] 47.5 % 42.0 - 54.0 % [facility] Hemoglobin (Bld) [Mass/Vol] 15.6 g/dL 14.0 - 18.0 g/dL [facility] IMMATURE GRANULOCYTES ABS AUTO 0 [facility] Immature granulocytes/100 WBC (Bld) 0 % 0.0 - 0.5 % [facility] LYMPHOCYTES ABSOLUTE AUTO 1.6 [facility] Lymphocytes/100 WBC (Bld) 36.3 % 20.5 - 60.0 % [facility] (RBC) [Entitic mass] 28.6 pg 25.9 - 34.0 pg [facility] MCHC (RBC) [Mass/Vol] 32.8 g/dL 29.9 - 35.2 g/dL [facility] MCV (RBC) [Entitic vol] 87.2 fL 80.0 - 94.0 fL [facility] MONOCYTES ABSOLUTE AUTO 0.4 [facility] Monocytes/100 WBC (Bld) 9.8 % 1.7 - 12.0 % [facility] NEUTROPHILS ABSOLUTE AUTO 2.2 [facility] Neutrophils/100 WBC (Bld) 50.6 % 43.0 - 75.0 % [facility] Platelet mean volume (Bld) [Entitic vol] 9.5 fL 9.5 - 13.5 fL [facility] TBH EO # 0.1 [facility] PLT 230 [facility] RBC 5.45 [facility] WBC 4.3 [facility] ALL CBC WITH AUTO DIFFon BASOPHILS ABSOLUTE AUTO 0 [facility] Basophils/100 WBC (Bld) 0.5 % 0.2 - 2.0 % [facility] Eosinophils/100 WBC (Bld) 2.6 % 0.9 - 7.0 % [facility] Erythrocyte distribution width (RBC) [Ratio] 12.2 % 11.0 - 15.0 % [facility] Hematocrit (Bld) [Volume fraction] 47.7 % 42.0 - 54.0 % [facility] Hemoglobin (Bld) [Mass/Vol] 15.7 g/dL 14.0 - 18.0 g/dL [facility] IMMATURE GRANULOCYTES ABS AUTO 0.01 [facility] Immature granulocytes/100 WBC (Bld) 0.2 % 0.0 - 0.5 % [facility] Interpretation and review of laboratory results Abnormal [facility] LYMPHOCYTES ABSOLUTE AUTO 1.5 [facility] Lymphocytes/100 WBC (Bld) 37 % 20.5 - 60.0 % [facility] MCH (RBC) [Entitic mass] 28.9 pg 25.9 - 34.0 pg [facility] MCHC (RBC) [Mass/Vol] 32.9 g/dL 29.9 - 35.2 g/dL [facility] MCV (RBC) [Entitic vol] 87.8 fL 80.0 - 94.0 fL [facility] MONOCYTES ABSOLUTE AUTO 0.3 [facility] Monocytes/100 WBC (Bld) 7.7 % 1.7 - 12.0 % [facility] NEUTROPHILS ABSOLUTE AUTO 2.2 [facility] Neutrophils/100 WBC (Bld) 52 % 43.0 - 75.0 % [facility] Platelet mean volume (Bld) [Entitic vol] 9.3 fL Low 9.5 - 13.5 fL [facility] EO # 0.1 [facility]T [facility] WBC 4.2 [facility] ALL CBC WITH AUTO DIFFon BASOPHILS ABSOLUTE AUTO 0 [facility] Basophils/100 WBC (Bld) 1 % 0.2 - 2.0 % [facility] Eosinophils/100 WBC (Bld) 2.9 % 0.9 - 7.0 % [facility] Erythrocyte distribution width (RBC) [Ratio] 12.3 % 11.0 - 15.0 % [facility] Hematocrit (Bld) [Volume fraction] 49.9 % 42.0 - 54.0 % [facility] Hemoglobin (Bld) [Mass/Vol] 16.5 g/dL 14.0 - 18.0 g/dL [facility] IMMATURE GRANULOCYTES ABS AUTO 0.01 [facility] Immature granulocytes/100 WBC (Bld) 0.2 % 0.0 - 0.5 % [facility] LYMPHOCYTES ABSOLUTE AUTO 1.3 [facility] Lymphocytes/100 WBC (Bld) 30.6 % 20.5 - 60.0 % [facility] MCH (RBC) [Entitic mass] 29.2 pg 25.9 - 34.0 pg [facility] MCHC (RBC) [Mass/Vol] 33.1 g/dL 29.9 - 35.2 g/dL [facility] MCV (RBC) [Entitic vol] 88.3 fL 80.0 - 94.0 fL [facility] MONOCYTES ABSOLUTE AUTO 0.4 [facility] Monocytes/100 WBC (Bld) 8.8 % 1.7 - 12.0 % [facility] NEUTROPHILS ABSOLUTE AUTO 2.4 [facility] Neutrophils/100 WBC (Bld) 56.5 % 43.0 - 75.0 % [facility] Platelet mean volume (Bld) [Entitic vol] 9.9 fL 9.5 - 13.5 fL [facility] EO # 0.1 [facility] PLT 245 [facility] RBC 5.65 [facility] WBC 4.2 [facility] ALL CBC WITH AUTO DIFFon BASOPHILS ABSOLUTE AUTO 0 [facility] Basophils/100 WBC (Bld) 0.6 % 0.2 - 2.0 % [facility] Eosinophils/100 WBC (Bld) 3.5 % 0.9 - 7.0 % [facility] Erythrocyte distribution width (RBC) [Ratio] 12.3 % 11.0 - 15.0 % [facility] Hematocrit (Bld) [Volume fraction] 47.1 % 42.0 - 54.0 % [facility] Hemoglobin (Bld) [Mass/Vol] 15.4 g/dL 14.0 - 18.0 g/dL [facility] IMMATURE GRANULOCYTES ABS AUTO 0.01 [facility] Immature granulocytes/100 WBC (Bld) 0.2 % 0.0 - 0.5 % [facility] LYMPHOCYTES ABSOLUTE AUTO 1.5 [facility] Lymphocytes/100 WBC (Bld) 31.7 % 20.5 - 60.0 % [facility] MCH (RBC) [Entitic mass] 28.9 pg 25.9 - 34.0 pg [facility] MCHC (RBC) [Mass/Vol] 32.7 g/dL 29.9 - 35.2 g/dL [facility] MCV (RBC) [Entitic vol] 88.4 fL 80.0 - 94.0 fL [facility] MONOCYTES ABSOLUTE AUTO 0.4 [facility] Monocytes/100 WBC (Bld) 8.6 % 1.7 - 12.0 % [facility] NEUTROPHILS ABSOLUTE AUTO 2.7 [facility] Neutrophils/100 WBC (Bld) 55.4 % 43.0 - 75.0 % [facility] Platelet mean volume (Bld) [Entitic vol] 9.7 fL 9.5 - 13.5 fL [facility] EO # 0.2 [facility] PLT 238 [facility] RBC 5.33 [facility] WBC 4.8 [facility] ALL CBC WITH AUTO DIFFon BASOPHILS ABSOLUTE AUTO 0 [facility] Basophils/100 WBC (Bld) 0.6 % 0.2 - 2.0 % [facility] Eosinophils/100 WBC (Bld) 3.2 % 0.9 - 7.0 % [facility] Erythrocyte distribution width (RBC) [Ratio] 12.4 % 11.0 - 15.0 % [facility] Hematocrit (Bld) [Volume fraction] 47 % 42.0 - 54.0 % [facility] Hemoglobin (Bld) [Mass/Vol] 15.8 g/dL 14.0 - 18.0 g/dL [facility] IMMATURE GRANULOCYTES ABS AUTO 0.01 [facility] Immature granulocytes/100 WBC (Bld) 0.2 % 0.0 - 0.5 % [facility] Interpretation and review of laboratory results Abnormal [facility] LYMPHOCYTES ABSOLUTE AUTO 1.1 Low [facility] Lymphocytes/100 WBC (Bld) 22.8 % 20.5 - 60.0 % [facility] MCH (RBC) [Entitic mass] 29.6 pg 25.9 - 34.0 pg [facility] MCHC (RBC) [Mass/Vol] 33.6 g/dL 29.9 - 35.2 g/dL [facility] MCV (RBC) [Entitic vol] 88 fL 80.0 - 94.0 fL [facility] MONOCYTES ABSOLUTE AUTO 0.4 [facility] Monocytes/100 WBC (Bld) 8 % 1.7 - 12.0 % [facility] NEUTROPHILS ABSOLUTE AUTO 3.3 [facility] Neutrophils/100 WBC (Bld) 65.2 % 43.0 - 75.0 % [facility] Platelet mean volume (Bld) [Entitic vol] 9.3 fL Low 9.5 - 13.5 fL [facility] PLT 222 [facility] RBC 5.34 [facility] WBC 5 [facility] ALL CBC WITH AUTO DIFFon BASOPHILS ABSOLUTE AUTO 0 [facility] Basophils/100 WBC (Bld) 0.6 % 0.2 - 2.0 % [facility] Eosinophils/100 WBC (Bld) 2.9 % 0.9 - 7.0 % [facility] Erythrocyte distribution width (RBC) [Ratio] 12.5 % 11.0 - 15.0 % [facility] Hematocrit (Bld) [Volume fraction] 47.1 % 42.0 - 54.0 % [facility] Hemoglobin (Bld) [Mass/Vol] 15.2 g/dL 14.0 - 18.0 g/dL [facility] IMMATURE GRANULOCYTES ABS AUTO 0.01 [facility] Immature granulocytes/100 WBC (Bld) 0.2 % 0.0 - 0.5 % [facility] Interpretation and review of laboratory results Abnormal [facility] LYMPHOCYTES ABSOLUTE AUTO 1.6 [facility] Lymphocytes/100 WBC (Bld) 32.7 % 20.5 - 60.0 % [facility] MCH (RBC) [Entitic mass] 28.5 pg 25.9 - 34.0 pg [facility] MCHC (RBC) [Mass/Vol] 32.3 g/dL 29.9 - 35.2 g/dL [facility] MCV (RBC) [Entitic vol] 88.4 fL 80.0 - 94.0 fL [facility] MONOCYTES ABSOLUTE AUTO 0.4 [facility] Monocytes/100 WBC (Bld) 8.5 % 1.7 - 12.0 % [facility] NEUTROPHILS ABSOLUTE AUTO 2.6 [facility] Neutrophils/100 WBC (Bld) 55.1 % 43.0 - 75.0 % [facility] Platelet mean volume (Bld) [Entitic vol] 9.3 fL Low 9.5 - 13.5 fL [facility] EO # 0.1 [facility] PLT 225 [facility] RBC 5.33 [facility] WBC 4.8 [facility] ALL CBC WITH AUTO DIFFon BASOPHILS ABSOLUTE AUTO 0.0 [facility] Basophils/100 WBC (Bld) 0.6 % 0.2 - 2.0 % [facility] Eosinophils/100 WBC (Bld) 3.2 % 0.9 - 7.0 % [facility] Erythrocyte distribution width (RBC) [Ratio] 12.4 % 11.0 - 15.0 % [facility] Hematocrit (Bld) [Volume fraction] 48.1 % 42.0 - 54.0 % [facility] Hemoglobin (Bld) [Mass/Vol] 15.8 g/dL 14.0 - 18.0 g/dL [facility] IMMATURE GRANULOCYTES ABS AUTO 0.01 [facility] Immature granulocytes/100 WBC (Bld) 0.2 % 0.0 - 0.5 % [facility] LYMPHOCYTES ABSOLUTE AUTO 1.4 [facility] Lymphocytes/100 WBC (Bld) 28.5 % 20.5 - 60.0 % [facility] MCH (RBC) [Entitic mass] 28.8 pg 25.9 - 34.0 pg [facility] MCHC (RBC) [Mass/Vol] 32.8 g/dL 29.9 - 35.2 g/dL [facility] MCV (RBC) [Entitic vol] 87.8 fL 80.0 - 94.0 fL [facility] MONOCYTES ABSOLUTE AUTO 0.4 [facility] Monocytes/100 WBC (Bld) 8.6 % 1.7 - 12.0 % [facility] NEUTROPHILS ABSOLUTE AUTO 2.9 [facility] Neutrophils/100 WBC (Bld) 58.9 % 43.0 - 75.0 % [facility] Platelet mean volume (Bld) [Entitic vol] 9.8 fL 9.5 - 13.5 fL [facility] # 0.2 [facility] RBC 5.48 [facility] WBC 5.0 [facility] ALL CBC WITH AUTO DIFFon BASOPHILS ABSOLUTE AUTO 0.0 [facility] Basophils/100 WBC (Bld) 0.7 % 0.2 - 2.0 % [facility] Eosinophils/100 WBC (Bld) 2.7 % 0.9 - 7.0 % [facility] Erythrocyte distribution width (RBC) [Ratio] 12.4 % 11.0 - 15.0 % [facility] Hematocrit (Bld) [Volume fraction] 47.4 % 42.0 - 54.0 % [facility] Hemoglobin (Bld) [Mass/Vol] 15.6 g/dL 14.0 - 18.0 g/dL [facility] IMMATURE GRANULOCYTES ABS AUTO 0.01 [facility] Immature granulocytes/100 WBC (Bld) 0.2 % 0.0 - 0.5 % [facility] LYMPHOCYTES ABSOLUTE AUTO 1.3 [facility] Lymphocytes/100 WBC (Bld) 29.6 % 20.5 - 60.0 % [facility] MCH (RBC) [Entitic mass] 28.8 pg 25.9 - 34.0 pg [facility] MCHC (RBC) [Mass/Vol] 32.9 g/dL 29.9 - 35.2 g/dL [facility] MCV (RBC) [Entitic vol] 87.5 fL 80.0 - 94.0 fL [facility] MONOCYTES ABSOLUTE AUTO 0.4 [facility] Monocytes/100 WBC (Bld) 8.1 % 1.7 - 12.0 % [facility] NEUTROPHILS ABSOLUTE AUTO 2.6 [facility] Neutrophils/100 WBC (Bld) 58.7 % 43.0 - 75.0 % [facility] Platelet mean volume (Bld) [Entitic vol] 9.9 fL 9.5 - 13.5 fL [facility] PLT 240 [facility] RBC 5.42 [facility] WBC 4.5 [facility] URINE T PROTEIN CREAT RA TIOon 08-15-2024 CREATININE URINE RANDOM 123.63 mg/dL 20.00 - 300.00 mg/dL [facility] Interpretation and review of laboratory results Abnormal [facility] Protein (U) [Mass/Vol] 14.4 mg/dL High NINF - 11.9 mg/dL [facility] PROTEIN CREATININE RATIO URINE 0.12 [facility] CBC WITH AUTO DIFFon BASOPHILS ABSOLUTE AUTO 0.0 [facility] Basophils/100 WBC (Bld) 0.8 % 0.2 - 2.0 % [facility] Eosinophils/100 WBC (Bld) 1.8 % 0.9 - 7.0 % [facility] Erythrocyte distribution width (RBC) [Ratio] 12.2 % 11.0 - 15.0 % [facility] Hematocrit (Bld) [Volume fraction] 47.2 % 42.0 - 54.0 % [facility] Hemoglobin (Bld) [Mass/Vol] 15.7 g/dL 14.0 - 18.0 g/dL [facility] IMMATURE GRANULOCYTES ABS AUTO 0.01 [facility] Immature granulocytes/100 WBC (Bld) 0.2 % 0.0 - 0.5 % [facility] LYMPHOCYTES ABSOLUTE AUTO 1.5 [facility] Lymphocytes/100 WBC (Bld) 29.9 % 20.5 - 60.0 % [facility] MCH (RBC) [Entitic mass] 29.1 pg 25.9 - 34.0 pg [facility] MCHC (RBC) [Mass/Vol] 33.3 g/dL 29.9 - 35.2 g/dL [facility] MCV (RBC) [Entitic vol] 87.4 fL 80.0 - 94.0 fL [facility] MONOCYTES ABSOLUTE AUTO 0.4 [facility] Monocytes/100 WBC (Bld) 8.8 % 1.7 - 12.0 % [facility] NEUTROPHILS ABSOLUTE AUTO 2.9 [facility] Neutrophils/100 WBC (Bld) 58.5 % 43.0 - 75.0 % [facility] Platelet mean volume (Bld) [Entitic vol] 10.0 fL 9.5 - 13.5 fL [facility] # 0.1 [facility] PLT 238 [facility] RBC 5.40 [facility] WBC 4.9 [facility] URINE T PROTEIN CREAT RA TIOon 08-02-2024 CREATININE URINE RANDOM 134.02 mg/dL 20.00 - 300.00 mg/dL [facility] Interpretation and review of laboratory results Abnormal [facility] Protein (U) [Mass/Vol] 13.8 mg/dL High NINF - 11.9 mg/dL [facility] PROTEIN CREATININE RATIO URINE 0.10 [facility]-2024 36 Regarding echo perfo rmed on 05/18/2024: MD Cinda Batres MA Please tell him the echo was ok and showed a small residual fluid around the heart. This is significant improvement from before. Follow up as planned. Patient informed and he verbalized understanding. [facility] Office Visiton 05-13-2024 Follow-up visit [id number] George Styles 1970 M Date Provider Department [facility] Family History Problem Relation Age of Onset Coronary artery disease Mother Coronary artery disease Father Family Status - Relation Status Age at Mother Father Level of Service:05088 [place] OFFICE/OUTPATIENT ESTABLISHED LOW MDM 20 MIN Reason for Visit and Comments: Follow-up [238944] - Yearly follow up Normal [facility] B-TYPE NATRIURETIC PEPTIDE ( BRAIN)on 02-26-2024 Interpretation and review of laboratory results Normal [facility] Natriuretic peptide B (Bld) [Mass/Vol] 72 pg/mL 0 - 100 pg/mL [facility] Natriuretic peptide B (Bld) [Mass/Vol] 72 pg/mL Normal 0-100 [facility] Comment on above: Performed By: #### B INSURANCE INSPECTOR #### [facility] (DEFAULT) [address] [place] [address] CHEM 6 (LYTES, BUN CREA)on 0 02-26-2024 Anion gap [Moles/Vol] 13 mmol/L 7 - 17 mmol/L [facility] Chloride [Moles/Vol] 107 mmol/L 98 - 10 8 mmol/L [facility] CO2 [Moles/Vol] 25 mmol/L 21 - 31 mmol/L [facility] Creatinine [Mass/Vol] 1.23 mg/dL 0.70 - 1.30 mg/dL [facility] eGFR, CKD-EPI, Male 70 - PINF [facility] Comment on above: Reported eGFR is bas ed on the CKD-EPI 2020 equation using creatinine, age, and sex. Potassium [Moles/Vol] 4.2 mmol/L 3.5 - 5.0 mmol/L [facility] Sodium [Moles/Vol] 141 mmol/L 135 - 145 mmol/L [facility] Urea nitrogen [Mass/Vol] 17 mg/dL 7 - 25 mg/dL [facility] Urea nitrogen/Creatinine [Mass ratio] 14 mg/mg [facility] Anion gap [Moles/Vol] 13 mmol/L Normal 7-17 [facility] Comment on above: Performed By: #### C HM6 #### [facility] (DEFAULT) [address] [place] [address] Chloride [Moles/Vol] 107 mmol/L Normal 98-108 [facility] Comment on above: Performed By: #### C HM6 #### [facility] (DEFAULT) [address] [place] [address] CO2 [Moles/Vol] 25 mmol/L Normal 21-31 [facility] Comment on above: Performed By: #### C HM6 #### [facility] (DEFAULT) [address] [place] [address] Creatinine [Mass/Vol] 1.23 mg/dL Normal 0.70-1.30 [facility] Comment on above: Performed By: #### C HM6 #### [facility] (DEFAULT) [address] [address] GFR/1.73 sq M.predicted among non-blacks MDRD (S/P/Bld) [Vol rate/Area] 70 mL/min/{1.73_m2} Normal >=60 [facility] Comment on above: Result Comment: Repo rted eGFR is based on the CKD-EPI 2020 equation using creatinine, age, and sex. Performed By: #### C HM6 #### [facility] (DEFAULT) [address] [address] Potassium [Moles/Vol] 4.2 mmol/L Normal 3.5-5.0 [facility] Comment on above: Performed By: #### C HM6 #### [facility] (DEFAULT) [address] [place] [address] Sodium [Moles/Vol] 141 mmol/L Normal 135-145 [facility] Comment on above: Performed By: #### C HM6 #### [facility] (DEFAULT) [address] [place] [address] Urea nitrogen [Mass/Vol] 17 mg/dL Normal 7-25 [facility] Comment on above: Performed By: #### C HM6 #### [facility] (DEFAULT) [address] [place] [address] Urea nitrogen/Creatinine [Mass ratio] 14 mg/mg Normal [facility] Comment on above: Performed By: #### C HM6 #### [facility] (DEFAULT) [address] [address] CBC,PLATELETSon 01-23-2024 Erythrocyte distribution width (RBC) [Ratio] 14.2 % 10.9 - 14.3 % [facility] Hematocrit (Bld) [Volume fraction] 37.0 % Low 39.6 - 48.8 % [facility] Hemoglobin (Bld) [Mass/Vol] 12.0 g/dL Low 13.4 - 16.8 g/dL [facility] Interpretation and review of laboratory results Abnormal [facility] MCH (RBC) [Entitic mass] 28.6 pg 26.1 - 33.[address] [facility] MCHC (RBC) [Mass/Vol] 32.4 g/dL 31.9 - 36.5 g/dL [facility] MCV (RBC) [Entitic vol] 88.1 fL 79.0 - 94.[address] [facility] Platelet mean volume (Bld) [Entitic vol] 10.4 fL 8.7 - 12.[address] [facility] Platelets (Bld) [#/Vol] 170 10*3/uL 146 - 337 K/uL [facility] RBC (Bld) [#/Vol] 4.20 10*6/uL Low [facility] WBC (Bld) [#/Vol] 3.70 10*3/uL Low 3.73 - 10. 10 K/uL [facility] CHEM 7 (LYTES,BUN,CREA,GLUC) on 01-23-2024 Anion gap [Moles/Vol] 14 mmol/L 7 - 17 mmol/L [facility] Chloride [Moles/Vol] 105 mmol/L 98 - 10 8 mmol/L [facility] CO2 [Moles/Vol] 25 mmol/L 21 - 31 mmol/L [facility] Creatinine [Mass/Vol] 1.32 mg/dL High 0.70 - 1.30 mg/dL [facility] eGFR, CKD-EPI, Male 65 - PINF [facility] Comment on above: Reported eGFR is bas ed on the CKD-EPI 2020 equation using creatinine, age, and sex. Glucose [Mass/Vol] 94 mg/dL 70 - 99 mg/dL [facility] Osmolality Calc [Osmolality] [address] [facility] Potassium [Moles/Vol] 3.8 mmol/L 3.5 - 5.0 mmol/L [facility] Sodium [Moles/Vol] 140 mmol/L 135 - 145 mmol/L [facility] Urea nitrogen [Mass/Vol] 23 mg/dL 7 - 25 mg/dL [facility] Urea nitrogen/Creatinine [Mass ratio] 17 mg/mg [facility] GLUCOSE POCon 01-23-2024 Glucose [Mass/Vol] 88 mg/dL 70 - 99 mg/dL [facility] POC Sample Type CAPBL [facility] Test performed at ad dress of the patient encounter. [facility] Glucose [Mass/Vol] 191 mg/dL High 70 - 99 mg/dL [facility] Interpretation and review of laboratory results Abnormal [facility] POC Sample Type CAPBL [facility] Test performed at ad dress of the patient encounter. [facility] HEPATIC FUNCTION PANELon Albumin [Mass/Vol] 3.9 g/dL 3.5 - 5.0 g/dL [facility] ALP [Catalytic activity/Vol] 83 U/L 32 - 126 U/L [facility] ALT [Catalytic activity/Vol] 9 U/L Low 10 - 52 U/L [facility] AST [Catalytic activity/Vol] 17 U/L 10 - 39 U/L [facility] Bilirubin [Mass/Vol] 1.6 mg/dL High NINF - 1.5 mg/dL [facility] Bilirubin.direct [Mass/Vol] 0.4 mg/dL High NINF - 0.3 mg/dL [facility] Protein [Mass/Vol] 6.6 g/dL 6.4 - 8.3 g/dL [facility] ITRACONAZOLE LEVELon 024 Hydroxyitraconazole [Mass/Vol] 7.6 mcg/mL [facility] Comment on above: REFERENCE VALUE No therapeutic range established; activity and serum concentration are similar to parent drug. ADDITIONAL INFORMATION This test was developed and its performance characteristics determined by [facility] in a manner consistent with CLIA requirements. This test has not been cleared or approved by the U.S. Food and Drug Administration. Test Performed by: [facility] [address] [place] [address] [employer] Associate: Rosendo Bose M.D. Ph.D.; CLIA# [id number] Itraconazole [Mass/Vol] 6.0 mcg/mL [facility] Comment on above: REFERENCE VALUE >0.5 (localized infection), >1.0 (systemic infection) [facility] MAGNESIUMon 01-23-2024 Interpretation and review of laboratory results Normal [facility] Magnesium [Mass/Vol] 1.8 mg/dL 1.6 - 2 .6 mg/dL [facility] No Panel Informationon 01-23 Interpretation and review of laboratory results Abnormal [facility] TACROLIMUS LEVEL, TROUGH ([place] E DRUG LEVEL)on 01-23-2024 Interpretation and review of laboratory results Normal [facility] Tacrolimus (Bld) [Mass/Vol] 7.0 ng/mL Bone Marrow Transplant: 4.0-12.0, Therapeutic: 5.0-15.[address] [facility] Method performed is a chemiluminescent microparticle immunoasssay on the [employer] Document Management Consultant i2000. The range is based on experience at [facility] and users should be aware that target concentrations vary widely depending on concomitant therapy, time post-transplant, and desired degree of immunosuppression. [facility] CARDIAC RHYTHM (SCANNED)on 0 01-22-[address] [facility] CBC,PLATELETSon 01-22-2024 Erythrocyte distribution width (RBC) [Ratio] 14.1 % 10.9 - 14.3 % [facility] Hematocrit (Bld) [Volume fraction] 41.5 % 39.6 - 48.8 % [facility] Hemoglobin (Bld) [Mass/Vol] 13.3 g/dL Low 13.4 - 16.8 g/dL [facility] Interpretation and review of laboratory results Abnormal [facility] MCH (RBC) [Entitic mass] 27.8 pg 26.1 - 33.[address] [facility] MCHC (RBC) [Mass/Vol] 32.0 g/dL 31.9 - 36.5 g/dL [facility] MCV (RBC) [Entitic vol] 86.8 fL 79.0 - 94.[address] [facility] Platelet mean volume (Bld) [Entitic vol] 10.5 fL 8.7 - 12.[address] [facility] Platelets (Bld) [#/Vol] 186 10*3/uL 146 - 337 K/uL [facility] RBC (Bld) [#/Vol] 4.78 10*6/uL [facility] WBC (Bld) [#/Vol] 3.74 10*3/uL 3.73 - 10. 10 K/uL [facility] CHEM 7 (LYTES,BUN,CREA,GLUC) on 01-22-2024 Anion gap [Moles/Vol] 13 mmol/L 7 - 17 mmol/L [facility] Chloride [Moles/Vol] 109 mmol/L High 98 - 10 8 mmol/L [facility] CO2 [Moles/Vol] 23 mmol/L 21 - 31 mmol/L [facility] Creatinine [Mass/Vol] 1.10 mg/dL 0.70 - 1.30 mg/dL [facility] eGFR, CKD-EPI, Male 81 - PINF [facility] Comment on above: Reported eGFR is bas ed on the CKD-EPI 2020 equation using creatinine, age, and sex. Glucose [Mass/Vol] 84 mg/dL 70 - 99 mg/dL [facility] Interpretation and review of laboratory results Abnormal [facility] Osmolality Calc [Osmolality] [address] [facility] Potassium [Moles/Vol] 4.0 mmol/L 3.5 - 5.0 mmol/L [facility] Sodium [Moles/Vol] 141 mmol/L 135 - 145 mmol/L [facility] Urea nitrogen [Mass/Vol] 16 mg/dL 7 - 25 mg/dL [facility] Urea nitrogen/Creatinine [Mass ratio] 15 mg/mg [facility] MAGNESIUMon 01-22-2024 Interpretation and review of laboratory results Normal [facility] Magnesium [Mass/Vol] 2.0 mg/dL 1.6 - 2 .6 mg/dL [facility] No Panel Informationon 01-[address] [facility] PT,INR,PTTon 01-22-2024 aPTT Coag (PPP) [Time] 29.[address] [facility] INR Coag (Bld) [Relative time] 1.1 {INR} 0.9 - 1.[address] [facility] Interpretation and review of laboratory results Abnormal [facility] PT Coag (PPP) [Time] 14.3 s High [facility] TACROLIMUS LEVEL, TROUGH ([place] E DRUG LEVEL)Ordered By: Sheree Jensen on 01-22-2024 Interpretation and review of laboratory results Normal [facility] Tacrolimus (Bld) [Mass/Vol] 7.9 ng/mL Bone Marrow Transplant: 4.0-12.0, Therapeutic: 5.0-15.[address] [facility] Method performed is a chemiluminescent microparticle immunoasssay on the [employer] i2000. The range is based on experience at [facility] and users should be aware that target concentrations vary widely depending on concomitant therapy, time post-transplant, and desired degree of immunosuppression. [facility] TYPE AND SCREENon 01-22-2024 ABO/RH(D) TYPE Positive [facility] [place] Unspecified body regionOr dered By: Unassigned Pacs on 01-22-[address] [facility] Work Phone: [place] Unspecified body regionon 01-22-2024 Radiology Study observation (narrative) [facility] CBC,PLATELETSon 01-21-2024 Erythrocyte distribution width (RBC) [Ratio] 14.0 % 10.9 - 14.3 % [facility] Hematocrit (Bld) [Volume fraction] 39.4 % Low 39.6 - 48.8 % [facility] Hemoglobin (Bld) [Mass/Vol] 12.7 g/dL Low 13.4 - 16.8 g/dL [facility] Interpretation and review of laboratory results Abnormal [facility] MCH (RBC) [Entitic mass] 28.0 pg 26.1 - 33.[address] [facility] MCHC (RBC) [Mass/Vol] 32.2 g/dL 31.9 - 36.5 g/dL [facility] MCV (RBC) [Entitic vol] 87.0 fL 79.0 - 94.[address] [facility] Platelet mean volume (Bld) [Entitic vol] 10.2 fL 8.7 - 12.[address] [facility] Platelets (Bld) [#/Vol] 157 10*3/uL 146 - 337 K/uL [facility] RBC (Bld) [#/Vol] 4.53 10*6/uL [facility] WBC (Bld) [#/Vol] 3.42 10*3/uL Low 3.73 - 10. 10 K/uL [facility] CHEM 7 (LYTES,BUN,CREA,GLUC) on 01-21-2024 Anion gap [Moles/Vol] 12 mmol/L 7 - 17 mmol/L [facility] Chloride [Moles/Vol] 107 mmol/L 98 - 10 8 mmol/L [facility] CO2 [Moles/Vol] 26 mmol/L 21 - 31 mmol/L [facility] Creatinine [Mass/Vol] 1.11 mg/dL 0.70 - 1.30 mg/dL [facility] eGFR, CKD-EPI, Male 80 - PINF [facility] Comment on above: Reported eGFR is bas ed on the CKD-EPI 2020 equation using creatinine, age, and sex. Glucose [Mass/Vol] 93 mg/dL 70 - 99 mg/dL [facility] Osmolality Calc [Osmolality] [address] [facility] Potassium [Moles/Vol] 3.9 mmol/L 3.5 - 5.0 mmol/L [facility] Sodium [Moles/Vol] 141 mmol/L 135 - 145 mmol/L [facility] Urea nitrogen [Mass/Vol] 15 mg/dL 7 - 25 mg/dL [facility] Urea nitrogen/Creatinine [Mass ratio] 14 mg/mg [facility] Cardiac catheterization stud yOrdered By: Kelvin Donohue on 01-21-2024 Body surface area Derived from formula 2.[address] [facility] Work Phone: [facility] Work Phone: Cardiac catheterization stud yon [...] with fistula occlusion Kelvin Donohue MD, MPH [facility]. Section of Advanced Heart Failure and Transplantation Division of Cardiovascular Diseases [facility] [email or web address] MAGNESIUMon 01-21-2024 Interpretation and review of laboratory results Abnormal [facility] Magnesium [Mass/Vol] 1.5 mg/dL Low 1.6 - 2 .6 mg/dL [facility] No Panel Informationon 01-[address] [facility] TACROLIMUS LEVEL, TROUGH ([place] E DRUG LEVEL)on 01-21-2024 Interpretation and review of laboratory results Normal [facility] Tacrolimus (Bld) [Mass/Vol] 7.2 ng/mL Bone Marrow Transplant: 4.0-12.0, Therapeutic: 5.0-15.[address] [facility] Method performed is a chemiluminescent microparticle immunoasssay on the [employer] Document [employer] i2000. The range is based on experience at [facility] and users should be aware that target concentrations vary widely depending on concomitant therapy, time post-transplant, and desired degree of immunosuppression. [facility] CBC,PLATELETSon 01-20-2024 Erythrocyte distribution width (RBC) [Ratio] 13.8 % 10.9 - 14.3 % [facility] Hematocrit (Bld) [Volume fraction] 38.9 % Low 39.6 - 48.8 % [facility] Hemoglobin (Bld) [Mass/Vol] 12.5 g/dL Low 13.4 - 16.8 g/dL [facility] Interpretation and review of laboratory results Abnormal [facility] MCH (RBC) [Entitic mass] 28.0 pg 26.1 - 33.[address] [facility] MCHC (RBC) [Mass/Vol] 32.1 g/dL 31.9 - 36.5 g/dL [facility] MCV (RBC) [Entitic vol] 87.2 fL 79.0 - 94.[address] [facility] Platelet mean volume (Bld) [Entitic vol] 10.2 fL 8.7 - 12.[address] [facility] Platelets (Bld) [#/Vol] 166 10*3/uL 146 - 337 K/uL [facility] RBC (Bld) [#/Vol] 4.46 10*6/uL [facility] WBC (Bld) [#/Vol] 3.79 10*3/uL 3.73 - 10. 10 K/uL [facility] CHEM 7 (LYTES,BUN,CREA,GLUC) on 01-20-2024 Anion gap [Moles/Vol] 12 mmol/L 7 - 17 mmol/L [facility] Chloride [Moles/Vol] 105 mmol/L 98 - 10 8 mmol/L [facility] CO2 [Moles/Vol] 28 mmol/L 21 - 31 mmol/L [facility] Creatinine [Mass/Vol] 1.12 mg/dL 0.70 - 1.30 mg/dL [facility] eGFR, CKD-EPI, Male 79 - PINF [facility] Comment on above: Reported eGFR is bas ed on the CKD-EPI 2020 equation using creatinine, age, and sex. Glucose [Mass/Vol] 88 mg/dL 70 - 99 mg/dL [facility] Osmolality Calc [Osmolality] [address] [facility] Potassium [Moles/Vol] 3.8 mmol/L 3.5 - 5.0 mmol/L [facility] Sodium [Moles/Vol] 141 mmol/L 135 - 145 mmol/L [facility] Urea nitrogen [Mass/Vol] 15 mg/dL 7 - 25 mg/dL [facility] Urea nitrogen/Creatinine [Mass ratio] 13 mg/mg [facility] Cardiac catheterization stud yon 01-20-[address] [facility] Radiology Study observation (narrative) [facility] Radiology Study observation (narrative) [facility] EBV BY PCR, QUANTITATIVE,BLO ODOrdered By: Charlotte Jensen on 01-20-2024 EBV DNA ESTELITA+probe (Unsp spec) [#/Vol] NINF [facility] Interpretation and review of laboratory results Normal [facility] This test was perfor med using [...] be regarded as investigational or for research. [facility] HEPATIC FUNCTION PANELon Albumin [Mass/Vol] 3.7 g/dL 3.5 - 5.0 g/dL [facility] ALP [Catalytic activity/Vol] 73 U/L 32 - 126 U/L [facility] ALT [Catalytic activity/Vol] 12 U/L 10 - 52 U/L [facility] AST [Catalytic activity/Vol] 19 U/L 10 - 39 U/L [facility] Bilirubin [Mass/Vol] 2.1 mg/dL High NINF - 1.5 mg/dL [facility] Bilirubin.direct [Mass/Vol] 0.5 mg/dL High NINF - 0.3 mg/dL [facility] Interpretation and review of laboratory results Abnormal [facility] Protein [Mass/Vol] 6.1 g/dL Low 6.4 - 8.3 g/dL [facility] MAGNESIUMon 01-20-2024 Interpretation and review of laboratory results Normal [facility] Magnesium [Mass/Vol] 1.6 mg/dL 1.6 - 2 .6 mg/dL [facility] No Panel Informationon 01-[address] [facility] POCT CO-OXIMETRYon Hemoglobin (Bld) [Mass/Vol] 12.8 g/dL Low 13.4 - 16.8 g/dL [facility] Interpretation and review of laboratory results Abnormal [facility] Oxyhemoglobin 69 % Low 94 - 98 % [facility] Ordering physician notified. Test performed at address of the patient encounter. [facility] Hemoglobin (Bld) [Mass/Vol] 13.3 g/dL Low 13.4 - 16.8 g/dL [facility] Interpretation and review of laboratory results Abnormal [facility] Oxyhemoglobin 69 % Low 94 - 98 % [facility] Ordering physician notified. Test performed at address of the patient encounter. [facility] PT,INR,PTTon 01-20-2024 aPTT Coag (PPP) [Time] 30.[address] [facility] INR Coag (Bld) [Relative time] 1.2 {INR} High 0.9 - 1.[address] [facility] Interpretation and review of laboratory results Abnormal [facility] PT Coag (PPP) [Time] 15.5 s High [facility] TACROLIMUS LEVEL, TROUGH ([place] E DRUG LEVEL)Ordered By: Yanira Marcum on 01-20-2024 Interpretation and review of laboratory results Normal [facility] Tacrolimus (Bld) [Mass/Vol] 7.7 ng/mL Bone Marrow Transplant: 4.0-12.0, Therapeutic: 5.0-15.[address] [facility] Method performed is a chemiluminescent microparticle immunoasssay on the [employer] i2000. The range is based on experience at [facility] and users should be aware that target concentrations vary widely depending on concomitant therapy, time post-transplant, and desired degree of immunosuppression. [facility] CBC,PLATELETSon 01-19-2024 Erythrocyte distribution width (RBC) [Ratio] 13.9 % 10.9 - 14.3 % [facility] Hematocrit (Bld) [Volume fraction] 37.5 % Low 39.6 - 48.8 % [facility] Hemoglobin (Bld) [Mass/Vol] 12.1 g/dL Low 13.4 - 16.8 g/dL [facility] Interpretation and review of laboratory results Abnormal [facility] MCH (RBC) [Entitic mass] 28.3 pg 26.1 - 33.[address] [facility] MCHC (RBC) [Mass/Vol] 32.3 g/dL 31.9 - 36.5 g/dL [facility] MCV (RBC) [Entitic vol] 87.8 fL 79.0 - 94.[address] [facility] Platelet mean volume (Bld) [Entitic vol] 10.4 fL 8.7 - 12.[address] [facility] Platelets (Bld) [#/Vol] 163 10*3/uL 146 - 337 K/uL [facility] RBC (Bld) [#/Vol] 4.27 10*6/uL Low [facility] WBC (Bld) [#/Vol] 3.69 10*3/uL Low 3.73 - 10. 10 K/uL [facility] CHEM 7 (LYTES,BUN,CREA,GLUC) on 01-19-2024 Anion gap [Moles/Vol] 14 mmol/L 7 - 17 mmol/L [facility] Chloride [Moles/Vol] 106 mmol/L 98 - 10 8 mmol/L [facility] CO2 [Moles/Vol] 24 mmol/L 21 - 31 mmol/L [facility] Creatinine [Mass/Vol] 1.13 mg/dL 0.70 - 1.30 mg/dL [facility] eGFR, CKD-EPI, Male 79 - PINF [facility] Comment on above: Reported eGFR is bas ed on the CKD-EPI 2020 equation using creatinine, age, and sex. Glucose [Mass/Vol] 86 mg/dL 70 - 99 mg/dL [facility] Osmolality Calc [Osmolality] [address] [facility] Potassium [Moles/Vol] 3.8 mmol/L 3.5 - 5.0 mmol/L [facility] Sodium [Moles/Vol] 140 mmol/L 135 - 145 mmol/L [facility] Urea nitrogen [Mass/Vol] 16 mg/dL 7 - 25 mg/dL [facility] Urea nitrogen/Creatinine [Mass ratio] 14 mg/mg [facility] HISTOPLASMA AND BLASTOMYCES ANTIGEN, ENZYME IMMUNOASSAY, SERMon 01-19-2024 Histoplasma/Blastomy antonia Ag Result Not detected Not Detected [facility] Comment on above: No antigen from Hist oplasma or Blastomyces detected. False negative results may occur depending on extent of disease, and/or site of infection. Repeat testing on a new specimen if clinically indicated. Histoplasma/Blastomy antonia Ag Value Not detected ng/mL [facility] Comment on above: ADDITIONAL INFORMATION This test was developed and its performance characteristics determined by [facility] in a manner consistent with CLIA requirements. This test has not been cleared or approved by the U.S. Food and Drug Administration. Test Performed by: [address] [address] [employer]: Rosendo Bose M.D. Ph.D.; CLIA# [id number] [facility] MAGNESIUMon 01-19-2024 Interpretation and review of laboratory results Normal [facility] Magnesium [Mass/Vol] 1.8 mg/dL 1.6 - 2 .6 mg/dL [facility] No Panel Informationon 01-[address] [facility] TACROLIMUS LEVEL, TROUGH (MN E DRUG LEVEL)Ordered By: Raymundo Mehta on 01-19-2024 Interpretation and review of laboratory results Normal [facility] Tacrolimus (Bld) [Mass/Vol] 6.8 ng/mL Bone Marrow Transplant: 4.0-12.0, Therapeutic: 5.0-15.[address] [facility] Method performed is a chemiluminescent microparticle immunoasssay on the [employer] i2000. The range is based on experience at [facility] and users should be aware that target concentrations vary widely depending on concomitant therapy, time post-transplant, and desired degree of immunosuppression. [facility] US AV fistulaOrdered By: Diana Reyes on 01-19-[address] [facility] Work Phone: US AV fistulaon 01-19-2024 Radiology Study observation (narrative) [facility] AFP TUMOR MARKEROrdered By: Francisca Alaniz on 01-18-2024 AFP.tumor marker [Mass/Vol] ng/mL NINF - 8.1 ng/mL [facility] Comment on above: This test was perfor med on the [employer] Immunoassay platform by [employer] which is a two-site sandwich chemiluminescent immunoassay. It is important to note that assays using different manufacturers and/or methods may not be comparable. Interpretation and review of laboratory results Normal [facility] CBC,PLATELETSon 01-18-2024 Erythrocyte distribution width (RBC) [Ratio] 13.9 % 10.9 - 14.3 % [facility] Hematocrit (Bld) [Volume fraction] 38.4 % Low 39.6 - 48.8 % [facility] Hemoglobin (Bld) [Mass/Vol] 12.1 g/dL Low 13.4 - 16.8 g/dL [facility] Interpretation and review of laboratory results Abnormal [facility] MCH (RBC) [Entitic mass] 27.8 pg 26.1 - 33.[address] [facility] MCHC (RBC) [Mass/Vol] 31.5 g/dL Low 31.9 - 36.5 g/dL [facility] MCV (RBC) [Entitic vol] 88.3 fL 79.0 - 94.[address] [facility] Platelet mean volume (Bld) [Entitic vol] 10.4 fL 8.7 - 12.[address] [facility] Platelets (Bld) [#/Vol] 183 10*3/uL 146 - 337 K/uL [facility] RBC (Bld) [#/Vol] 4.35 10*6/uL Low [facility] WBC (Bld) [#/Vol] 3.66 10*3/uL Low 3.73 - 10. 10 K/uL [facility] CHEM 7 (LYTES,BUN,CREA,GLUC) on 01-18-2024 Anion gap [Moles/Vol] 11 mmol/L 7 - 17 mmol/L [facility] Chloride [Moles/Vol] 108 mmol/L 98 - 10 8 mmol/L [facility] CO2 [Moles/Vol] 26 mmol/L 21 - 31 mmol/L [facility] Creatinine [Mass/Vol] 1.00 mg/dL 0.70 - 1.30 mg/dL [facility] eGFR, CKD-EPI, Male - PINF [facility] Comment on above: Reported eGFR is bas ed on the CKD-EPI 2020 equation using creatinine, age, and sex. Glucose [Mass/Vol] 89 mg/dL 70 - 99 mg/dL [facility] Osmolality Calc [Osmolality] 295 [facility] Potassium [Moles/Vol] 3.9 mmol/L 3.5 - 5.0 mmol/L [facility] Sodium [Moles/Vol] 141 mmol/L 135 - 145 mmol/L [facility] Urea nitrogen [Mass/Vol] 16 mg/dL 7 - 25 mg/dL [facility] Urea nitrogen/Creatinine [Mass ratio] 16 mg/mg [facility] Cardiac echo study Procedure Ordered By: Gian Carlos on 01-18-2024 Ao ASC index 1.63 cm/m2 [facility] Work Phone: Ao peak meliton 1.46 m/s [facility] Work Phone: Ao SOV index 1.56 cm/m2 [facility] Work Phone: Ao STJ index 1.25 cm/m2 [facility] Work Phone: Ao VTI 35.[address] [facility] Work Phone: Ascending aorta 3.39 [facility]: AV LVOT peak gradient 4 mmHg [facility] Work [facility]: AV mean gradient 5 mmHg [facility] AV peak gradient 9 mmHG [facility] Work Phone: AV valve area 3.[address] [facility] Work Phone: AV Velocity Ratio 0.73 [facility] Work Phone: VEGA (continuity Vmax) 3.01 cm2 [facility] Work Phone: VEGA (continuity VTI) 3.09 cm2 [facility] Work Phone: VEGA index (continuity Vmax) 1.45 m/s [facility] Work Phone: VEGA index (continuity VTI) 1.49 cm2/m2 [facility] Work Phone: Avg e' pk meliton 0.07 m/s [facility] Work Phone: Avg E/e' ratio 19.[address] [facility] Work Phone: Body surface area Derived from formula 2.[address] [facility] Work Phone: BP EF 62 % [facility] Work Phone: DI (Vmax) 0.[address] [facility] Work Phone: DI (VTI) 0.74 m/[address] [facility] Work Phone: E wave decelartion time 180.38 msec [facility] Work Phone: e' lateral pk meliton 0.0789 m/s [facility] Work Phone: e' lateral pk meliton 0.08 m/s [facility] Work Phone: e' septal pk meliton 0.0653 m/s [facility] Work Phone: e' septal pk meliton 0.07 m/s [facility] Work Phone: E/A ratio 2.67 [facility] Work Phone: E/e' lateral ratio 17.62 [facility] Work Phone: E/e' septal ratio 21.29 [facility] Work Phone: EF SP 2CH 66 [facility] Work Phone: EF SP 4CH 58 [facility] Work Phone: FS 28 % 28 - 44 % [facility] Work Phone: IVC ostium 2.30 cm [facility] Work Phone: IVS 1.11 cm [facility] Work Phone: LA AREA 2CH 24.36 cm2 [facility] Work Phone: LA area 4CH 20.36 cm2 [facility] Work Phone: LA ESV BP (MOD) 64 mL [facility] Work Phone: LA ESV BP (MOD) index 31 mL/m2 [facility] Work Phone: LA ESV SP 2CH (MOD) 76 mL [facility] Work Phone: LA ESV SP 4CH (MOD) 53 mL [facility] Work Phone: LV EDV BP 180 mL [facility] Work Phone: LV EDV SP 2CH 190 mL [facility] Work Phone: LV EDV SP 4CH 166 mL [facility] Work Phone: LV ESV BP 69 mL [facility] Work Phone: LV ESV SP 2CH 65 mL [facility] Work Phone: LV ESV SP 4CH 70 mL [facility] Work Phone: LV mass 254.73 g [facility] Work Phone: LV Mass Index 122.5 g/m2 [facility] Work Phone: LV RWT 0.[address] [facility] Work Phone: LV stroke volume BP (ml) [address] [facility] Work Phone: LV stroke volume index BP 53.37 mL/m2 [facility] Work Phone: LVIDD 5.[address] [facility] Work Phone: LVIDS 3.[address] [facility] Work Phone: LVOT area 4.[address] [facility] Work Phone: LVOT diameter 2.[address] [facility] Work Phone: LVOT peak meliton 1.06 m/s [facility] Work Phone: LVOT peak VTI 26.[address] [facility] Work Phone: LVOT stroke volume 111 [facility]: LVOT stroke volume index 53.13 ml/m2 [facility] Work Phone: Mr max meliton 4.21 m/s [facility] Work Phone: MR VTI 134.50 cm [facility] Work Phone: MV mean gradient 3 mmHg [facility] Work Phone: MV peak gradient 11 mmHg [facility] Work Phone: MV pk A meliton 0.52 m/s [facility] Work Phone: MV pk E meliton 1.39 m/s [facility] Work Phone: MV stenosis pressure 1/2 time 58.[address] [facility] Work Phone: MV valve area by continuity eq 2.[address] [facility] Work Phone: MV valve area p 1/2 method 3.[address] [facility] Work Phone: MV VTI 37.[address] [facility] Work Phone: MVA (continuity VTI) 2.[address] [facility] Work Phone: OSU AV VTI RATIO PRE STRESS 0.[address] [facility] Work Phone: OSU ECHO LV BIPLANE SYSTOLIC VOLUME INDEX 33.17 mL/m2 [facility] Work Phone: OSU ECHO LV BP DIASTOLIC VOLUME INDEX 86.54 mL/m2 [facility] Work Phone: OSU ECHO MR PEAK GRADIENT 70.[address] [facility] Work Phone: PW 1.[address] [facility] Work Phone: RA area 4CH (MOD) 14.50 cm2 [facility] Work Phone: RA vol index 4CH (MOD) 18.27 mL/m2 [facility] Work Phone: Right atrium volume 4 chamber method of disks 38 mL [facility] Work Phone: RV Area diastolic 33.20 cm2 [facility] Work Phone: RV Area systolic 21.30 cm2 [facility] Work Phone: RV basal diam 4.52 cm [facility] Work Phone: RV Fractional area change 35.8 % [facility] Work Phone: RV long diam 8.96 cm [facility] Work Phone: RV mid diam 3.70 cm [facility] Work Phone: RV S' 22.01 cm/s [facility] Work Phone: RVOT peak gradient 4 [facility] Work [facility]: RVOT peak meliton 0.96 m/s [facility] Work Phone: RVOT peak VTI 20.[address] [facility] Work Phone: Sinus 3.[address] [facility] Work Phone: STJ 2.[address] [facility] Work Phone: Stroke Volume 111 cm/mL [facility] Work Phone: Stroke volume index 53 [facility] Work [facility]: TAPSE 2.[address] [facility] Work Phone: [facility] Work Phone: Cardiac echo study Procedure [...] echocardiography study was performed. Imaging system used: Aginova. Indications Indications for study: shortness of breath. [facility] Radiology Study observation (narrative) [facility] HEPATIC FUNCTION PANELon Albumin [Mass/Vol] 3.5 g/dL 3.5 - 5.0 g/dL [facility] ALP [Catalytic activity/Vol] 70 U/L 32 - 126 U/L [facility] ALT [Catalytic activity/Vol] 8 U/L Low 10 - 52 U/L [facility] AST [Catalytic activity/Vol] 20 U/L 10 - 39 U/L [facility] Bilirubin [Mass/Vol] 1.7 mg/dL High NINF - 1.5 mg/dL [facility] Bilirubin.direct [Mass/Vol] 0.4 mg/dL High NINF - 0.3 mg/dL [facility] Protein [Mass/Vol] 6.0 g/dL Low 6.4 - 8.3 g/dL [facility] MAGNESIUMon 01-18-2024 Magnesium [Mass/Vol] 1.5 mg/dL Low 1.6 - 2 .6 mg/dL [facility] No Panel Informationon 01-18 Interpretation and review of laboratory results Abnormal [facility] PT,INR,PTTon 01-18-2024 aPTT Coag (PPP) [Time] 30.[address] [facility] INR Coag (Bld) [Relative time] 1.1 {INR} 0.9 - 1.[address] [facility] Interpretation and review of laboratory results Abnormal [facility] PT Coag (PPP) [Time] 14.5 s High [facility] TSH W/FT4 REFLEXon Interpretation and review of laboratory results Normal [facility] TSH Qn 2.660 m[IU]/L [facility] DARYL AURIS SCREEN BY PCRO rdered By: Mynor Alejandro on 01-17-2024 Daryl auris Screen by PCR Not detected Not Detected [facility] Interpretation and review of laboratory results Normal [facility] This test was perfor med using [...] be regarded as investigational or for research. [facility] CBC,PLATELETSon 01-17-2024 Erythrocyte distribution width (RBC) [Ratio] 14.0 % 10.9 - 14.3 % [facility] Hematocrit (Bld) [Volume fraction] 37.2 % Low 39.6 - 48.8 % [facility] Hemoglobin (Bld) [Mass/Vol] 12.0 g/dL Low 13.4 - 16.8 g/dL [facility] Interpretation and review of laboratory results Abnormal [facility] MCH (RBC) [Entitic mass] 27.9 pg 26.1 - 33.[address] [facility] MCHC (RBC) [Mass/Vol] 32.3 g/dL 31.9 - 36.5 g/dL [facility] MCV (RBC) [Entitic vol] 86.5 fL 79.0 - 94.[address] [facility] Platelet mean volume (Bld) [Entitic vol] 10.5 fL 8.7 - 12.[address] [facility] Platelets (Bld) [#/Vol] 159 10*3/uL 146 - 337 K/uL [facility] RBC (Bld) [#/Vol] 4.30 10*6/uL Low [facility] WBC (Bld) [#/Vol] 3.69 10*3/uL Low 3.73 - 10. 10 K/uL [facility] CHEM 7 (LYTES,BUN,CREA,GLUC) on 01-17-2024 Anion gap [Moles/Vol] 13 mmol/L 7 - 17 mmol/L [facility] Chloride [Moles/Vol] 109 mmol/L High 98 - 10 8 mmol/L [facility] CO2 [Moles/Vol] 21 mmol/L 21 - 31 mmol/L [facility] Creatinine [Mass/Vol] 1.04 mg/dL 0.70 - 1.30 mg/dL [facility] eGFR, CKD-EPI, Male 86 - PINF [facility] Comment on above: Reported eGFR is bas ed on the CKD-EPI 2020 equation using creatinine, age, and sex. Glucose [Mass/Vol] 82 mg/dL 70 - 99 mg/dL [facility] Osmolality Calc [Osmolality] 292 [facility] Potassium [Moles/Vol] 4.4 mmol/L 3.5 - 5.0 mmol/L [facility] Sodium [Moles/Vol] 139 mmol/L 135 - 145 mmol/L [facility] Urea nitrogen [Mass/Vol] 17 mg/dL 7 - 25 mg/dL [facility] Urea nitrogen/Creatinine [Mass ratio] 16 mg/mg [facility] CT [...] unremarkable. Kidneys: Severe atrophy of the bilateral [place] kidney is without hydronephrosis. Right lower quadrant [...] unremarkable. Kidneys: Severe atrophy of the bilateral [place] kidney is without hydronephrosis. Right lower quadrant [...] the middle lobe. Trace left pleural effusion. [facility] Radiology Study observation (narrative) [facility] HEPATIC FUNCTION PANELon Albumin [Mass/Vol] 3.5 g/dL 3.5 - 5.0 g/dL [facility] ALP [Catalytic activity/Vol] 73 U/L 32 - 126 U/L [facility] ALT [Catalytic activity/Vol] 7 U/L Low 10 - 52 U/L [facility] AST [Catalytic activity/Vol] 25 U/L 10 - 39 U/L [facility] Bilirubin [Mass/Vol] 1.8 mg/dL High NINF - 1.5 mg/dL [facility] Bilirubin.direct [Mass/Vol] 0.3 mg/dL High NINF - 0.3 mg/dL [facility] Protein [Mass/Vol] 6.0 g/dL Low 6.4 - 8.3 g/dL [facility] MAGNESIUMon 01-17-2024 Interpretation and review of laboratory results Normal [facility] Magnesium [Mass/Vol] 1.7 mg/dL 1.6 - 2 .6 mg/dL [facility] No Panel Informationon 01-17 Interpretation and review of laboratory results Abnormal [facility] PT,INR,PTTon 01-17-2024 aPTT Coag (PPP) [Time] 29.[address] [facility] INR Coag (Bld) [Relative time] 1.1 {INR} 0.9 - 1.[address] [facility] Interpretation and review of laboratory results Abnormal [facility] PT Coag (PPP) [Time] 14.5 s High [facility] B-TYPE NATRIURETIC PEPTIDE ( BRAIN)on 01-16-2024 Interpretation and review of laboratory results Abnormal [facility] Natriuretic peptide B (Bld) [Mass/Vol] 212 pg/mL High 0 - 100 pg/mL [facility] CALCIUMon 01-16-2024 Calcium [Mass/Vol] 8.5 mg/dL Low 8.6 - 10. 5 mg/dL [facility] CBC AND ELECTRONIC DIFFon Basophils (Bld) [#/Vol] K/uL 0.00 - 0.09 K/uL [facility] Basophils/100 WBC (Bld) 0.6 % [facility] Differential cell count method Nom (Bld) Electronic Differential [facility] Eosinophils (Bld) [#/Vol] 0.09 10*3/uL 0.00 - 0.48 K/uL [facility] Eosinophils/100 WBC (Bld) 2.5 % [facility] Erythrocyte distribution width (RBC) [Ratio] 14.0 % 10.9 - 14.3 % [facility] Hematocrit (Bld) [Volume fraction] 37.4 % Low 39.6 - 48.8 % [facility] Hemoglobin (Bld) [Mass/Vol] 12.1 g/dL Low 13.4 - 16.8 g/dL [facility] Immature granulocytes (Bld) [#/Vol] K/uL NINF - 0.07 K/uL [facility] Immature granulocytes/100 WBC (Bld) 0.3 % [facility] Interpretation and review of laboratory results Abnormal [facility] Lymphocytes (Bld) [#/Vol] 1.16 10*3/uL 0.83 - 3.57 K/uL [facility] Lymphocytes/100 WBC (Bld) 32.0 % [facility] MCH (RBC) [Entitic mass] 28.4 pg 26.1 - 33.[address] [facility] MCHC (RBC) [Mass/Vol] 32.4 g/dL 31.9 - 36.5 g/dL [facility] MCV (RBC) [Entitic vol] 87.8 fL 79.0 - 94.[address] [facility] Monocytes (Bld) [#/Vol] 0.43 10*3/uL 0.24 - 0.93 K/uL [facility] Monocytes/100 WBC (Bld) 11.9 % [facility] Neutrophils (Bld) [#/Vol] 1.91 10*3/uL 1.57 - 6.19 K/uL [facility] Nucleated RBC/100 WBC (Bld) [Ratio] 0.0 % [facility] Platelet mean volume (Bld) [Entitic vol] 10.1 fL 8.7 - 12.[address] [facility] Platelets (Bld) [#/Vol] 155 10*3/uL 146 - 337 K/uL [facility] RBC (Bld) [#/Vol] 4.26 10*6/uL Low [facility] Segmented neutrophils/100 WBC (Bld) 52.7 % [facility] WBC (Bld) [#/Vol] 3.62 10*3/uL Low 3.73 - 10. 10 K/uL [facility] CHEM 7 (LYTES,BUN,CREA,GLUC) on 01-16-2024 Anion gap [Moles/Vol] 11 mmol/L 7 - 17 mmol/L [facility] Chloride [Moles/Vol] 108 mmol/L 98 - 10 8 mmol/L [facility] CO2 [Moles/Vol] 24 mmol/L 21 - 31 mmol/L [facility] Creatinine [Mass/Vol] 1.04 mg/dL 0.70 - 1.30 mg/dL [facility] eGFR, CKD-EPI, Male 86 - PINF [facility] Comment on above: Reported eGFR is bas ed on the CKD-EPI 2020 equation using creatinine, age, and sex. Glucose [Mass/Vol] 95 mg/dL 70 - 99 mg/dL [facility] Osmolality Calc [Osmolality] [address] [facility] Potassium [Moles/Vol] 4.0 mmol/L 3.5 - 5.0 mmol/L [facility] Sodium [Moles/Vol] 139 mmol/L 135 - 145 mmol/L [facility] Urea nitrogen [Mass/Vol] 19 mg/dL 7 - 25 mg/dL [facility] Urea nitrogen/Creatinine [Mass ratio] 18 mg/mg [facility] D-DIMER,QUANTITATIVEOrdered By: Shaji Kelly on 01-16-2024 Fibrin D-dimer FEU (PPP) [Mass/Vol] 0.67 High [facility] Comment on above: The D-Dimer assay is intended for use in conjuction with a clinical pretest probability (PTP) assessment model to exclude pulmonary embolism (PE) and as an aid in the diagnosis of Deep Vein Thrombosis (DVT) in outpatients suspected of PE or DVT. For the assay in use at [facility] ([facility]), a cutoff of <0.50 mcg/mL has a Negative Predictive Value of 99.7% for exclusion of DVT in low and moderate PTP patients. Interpretation and review of laboratory results Abnormal [facility] HEPATIC FUNCTION PANELon Albumin [Mass/Vol] 3.7 g/dL 3.5 - 5.0 g/dL [facility] ALP [Catalytic activity/Vol] 70 U/L 32 - 126 U/L [facility] ALT [Catalytic activity/Vol] 8 U/L Low 10 - 52 U/L [facility] AST [Catalytic activity/Vol] 21 U/L 10 - 39 U/L [facility] Bilirubin [Mass/Vol] 1.9 mg/dL High NINF - 1.5 mg/dL [facility] Bilirubin.direct [Mass/Vol] 0.4 mg/dL High NINF - 0.3 mg/dL [facility] Protein [Mass/Vol] 6.1 g/dL Low 6.4 - 8.3 g/dL [facility] MAGNESIUMon 01-16-2024 Magnesium [Mass/Vol] 1.7 mg/dL 1.6 - 2 .6 mg/dL [facility] No Panel Informationon 01-16 Interpretation and review of laboratory results Abnormal [facility] Interpretation and review of laboratory results Normal [facility] PHOSPHATE, INORGANICon 01-16 Phosphate [Mass/Vol] 4.1 mg/dL 2.2 - 4 .6 mg/dL [facility] PT,INR,PTTon 01-16-2024 aPTT Coag (PPP) [Time] 29.[address] [facility] INR Coag (Bld) [Relative time] 1.2 {INR} High 0.9 - 1.[address] [facility] Interpretation and review of laboratory results Abnormal [facility] PT Coag (PPP) [Time] 14.9 s High [facility] TACROLIMUS LEVEL, TROUGH ([place] E DRUG LEVEL)Ordered By: Jimy Castillo on 01-16-2024 Interpretation and review of laboratory results Normal [facility] Tacrolimus (Bld) [Mass/Vol] 5.7 ng/mL Bone Marrow Transplant: 4.0-12.0, Therapeutic: 5.0-15.[address] [facility] Method performed is a chemiluminescent microparticle immunoasssay on the [employer] i2000. The range is based on experience at [facility] and users should be aware that target concentrations vary widely depending on concomitant therapy, time post-transplant, and desired degree of immunosuppression. [facility] US.doppler Abdominal vessels on 01-16-2024 [...] Trace right upper quadrant ascites. [facility] Radiology Study observation (narrative) [facility] US.doppler Abdominal vessels Ordered By: Iona Duran on 01-16-[address] [facility] Work Phone: XR Chest PA and Lateralon IMPRESSION: Moderate [...] IMPRESSION: Moderate right pleural effusion. [facility] Radiology Study observation (narrative) [facility] XR Chest PA and LateralOrder ed By: Daisha Patterson on 01-16-[address] [facility] Work Phone: ALL CBC WITH AUTO DIFFon BASOPHILS ABSOLUTE AUTO 0.0 [facility] Basophils/100 WBC (Bld) 0.5 % 0.2 - 2.0 % [facility] Eosinophils/100 WBC (Bld) 2.8 % 0.9 - 7.0 % [facility] Erythrocyte distribution width (RBC) [Ratio] 13.8 % 11.0 - 15.0 % [facility] Hematocrit (Bld) [Volume fraction] 43.7 % 42.0 - 54.0 % [facility] Hemoglobin (Bld) [Mass/Vol] 14.0 g/dL 14.0 - 18.0 g/dL [facility] IMMATURE GRANULOCYTES ABS AUTO 0.01 [facility] Immature granulocytes/100 WBC (Bld) 0.3 % 0.0 - 0.5 % [facility] LYMPHOCYTES ABSOLUTE AUTO 1.5 [facility] Lymphocytes/100 WBC (Bld) 37.5 % 20.5 - 60.0 % [facility] MCH (RBC) [Entitic mass] 28.4 pg 25.9 - 34.0 pg [facility] MCHC (RBC) [Mass/Vol] 32.0 g/dL 29.9 - 35.2 g/dL [facility] MCV (RBC) [Entitic vol] 88.6 fL 80.0 - 94.0 fL [facility] MONOCYTES ABSOLUTE AUTO 0.5 [facility] Monocytes/100 WBC (Bld) 11.9 % 1.7 - 12.0 % [facility] NEUTROPHILS ABSOLUTE AUTO 1.9 [facility] Neutrophils/100 WBC (Bld) 47.0 % 43.0 - 75.0 % [facility] Platelet mean volume (Bld) [Entitic vol] 10.3 fL 9.5 - 13.5 fL [facility] PLT 180 [facility] RBC 4.93 [facility] WBC 4.0 [facility] ALL CBC WITH AUTO DIFFon BASOPHILS ABSOLUTE AUTO 0.0 [facility] Basophils/100 WBC (Bld) 0.5 % 0.2 - 2.0 % [facility] Eosinophils/100 WBC (Bld) 2.6 % 0.9 - 7.0 % [facility] Erythrocyte distribution width (RBC) [Ratio] 13.5 % 11.0 - 15.0 % [facility] Hematocrit (Bld) [Volume fraction] 43.8 % 42.0 - 54.0 % [facility] Hemoglobin (Bld) [Mass/Vol] 14.0 g/dL 14.0 - 18.0 g/dL [facility] IMMATURE GRANULOCYTES ABS AUTO 0.00 [facility] Immature granulocytes/100 WBC (Bld) 0.0 % 0.0 - 0.5 % [facility] Interpretation and review of laboratory results Abnormal [facility] LYMPHOCYTES ABSOLUTE AUTO 1.8 [facility] Lymphocytes/100 WBC (Bld) 45.2 % 20.5 - 60.0 % [facility] MCH (RBC) [Entitic mass] 27.9 pg 25.9 - 34.0 pg [facility] MCHC (RBC) [Mass/Vol] 32.0 g/dL 29.9 - 35.2 g/dL [facility] MCV (RBC) [Entitic vol] 87.4 fL 80.0 - 94.0 fL [facility] MONOCYTES ABSOLUTE AUTO 0.4 [facility] Monocytes/100 WBC (Bld) 9.6 % 1.7 - 12.0 % [facility] NEUTROPHILS ABSOLUTE AUTO 1.6 [facility] Neutrophils/100 WBC (Bld) 42.1 % Low 43.0 - 75.0 % [facility] Platelet mean volume (Bld) [Entitic vol] 9.8 fL 9.5 - 13.5 fL [facility] # 0.1 [facility] PLT 180 [facility] RBC 5.01 [facility] WBC 3.9 Low [facility] CHEM 7 (LYTES,BUN,CREA,GLUC) on 09-11-2023 Anion gap [Moles/Vol] 13 mmol/L 7 - 17 mmol/L [facility] Chloride [Moles/Vol] 111 mmol/L High 98 - 10 8 mmol/L [facility] CO2 [Moles/Vol] 20 mmol/L Low 21 - 31 mmol/L [facility] Creatinine [Mass/Vol] 1.13 mg/dL 0.70 - 1.30 mg/dL [facility] eGFR, CKD-EPI, Male 78 - PINF [facility] Glucose [Mass/Vol] 109 mg/dL High 70 - 99 mg/dL [facility] Interpretation and review of laboratory results Abnormal [facility] Osmolality Calc [Osmolality] [address] [facility] Potassium [Moles/Vol] 4.3 mmol/L 3.5 - 5.0 mmol/L [facility] Sodium [Moles/Vol] 140 mmol/L 135 - 145 mmol/L [facility] Urea nitrogen [Mass/Vol] 16 mg/dL 7 - 25 mg/dL [facility] Urea nitrogen/Creatinine [Mass ratio] 14 mg/mg [facility] GLUCOSE POCon 09-11-2023 Glucose [Mass/Vol] 108 mg/dL High 70 - 99 mg/dL [facility] Interpretation and review of laboratory results Abnormal [facility] POC Sample Type CAPBL [facility] Legionella sp identified Org specific cx Nom (Unsp spec)on 09-11-2023 Bacteria identified Cx Nom (Unsp spec) NO GROWTH DAY 7 OF 7 [facility] MAGNESIUMon 09-11-2023 Interpretation and review of laboratory results Normal [facility] Magnesium [Mass/Vol] 1.6 mg/dL 1.6 - 2 .6 mg/dL [facility] No Panel Informationon 09-[address] [facility] TACROLIMUS LEVEL, TROUGH ([place] E DRUG LEVEL)on 09-11-2023 Interpretation and review of laboratory results Normal [facility] Tacrolimus (Bld) [Mass/Vol] 11.5 ng/mL [facility] CBC,PLATELETSon 09-10-2023 Erythrocyte distribution width (RBC) [Ratio] 13.9 % 10.9 - 14.3 % [facility] Hematocrit (Bld) [Volume fraction] 40.0 % 39.6 - 48.8 % [facility] Hemoglobin (Bld) [Mass/Vol] 12.7 g/dL Low 13.4 - 16.8 g/dL [facility] Interpretation and review of laboratory results Abnormal [facility] MCH (RBC) [Entitic mass] 27.3 pg 26.1 - 33.[address] [facility] MCHC (RBC) [Mass/Vol] 31.8 g/dL Low 31.9 - 36.5 g/dL [facility] MCV (RBC) [Entitic vol] 86.0 fL 79.0 - 94.[address] [facility] Platelet mean volume (Bld) [Entitic vol] 9.5 fL 8.7 - 12.[address] [facility] Platelets (Bld) [#/Vol] 225 10*3/uL 146 - 337 K/uL [facility] RBC (Bld) [#/Vol] 4.65 10*6/uL [facility] WBC (Bld) [#/Vol] 6.52 10*3/uL 3.73 - 10. 10 K/uL [facility] CHEM 7 (LYTES,BUN,CREA,GLUC) on 09-10-2023 Anion gap [Moles/Vol] 13 mmol/L 7 - 17 mmol/L [facility] Chloride [Moles/Vol] 111 mmol/L High 98 - 10 8 mmol/L [facility] CO2 [Moles/Vol] 20 mmol/L Low 21 - 31 mmol/L [facility] Creatinine [Mass/Vol] 1.27 mg/dL 0.70 - 1.30 mg/dL [facility] eGFR, CKD-EPI, Male 68 - PINF [facility] Glucose [Mass/Vol] 100 mg/dL High 70 - 99 mg/dL [facility] Osmolality Calc [Osmolality] [address] [facility] Potassium [Moles/Vol] 4.4 mmol/L 3.5 - 5.0 mmol/L [facility] Sodium [Moles/Vol] 140 mmol/L 135 - 145 mmol/L [facility] Urea nitrogen [Mass/Vol] 12 mg/dL 7 - 25 mg/dL [facility] Urea nitrogen/Creatinine [Mass ratio] 9 mg/mg [facility] HEPATIC FUNCTION PANELon Albumin [Mass/Vol] 3.3 g/dL Low 3.5 - 5.0 g/dL [facility] ALP [Catalytic activity/Vol] 143 U/L High 32 - 126 U/L [facility] ALT [Catalytic activity/Vol] 28 U/L 10 - 52 U/L [facility] AST [Catalytic activity/Vol] 29 U/L 10 - 39 U/L [facility] Bilirubin [Mass/Vol] 0.9 mg/dL NINF - 1.5 mg/dL [facility] Bilirubin.direct [Mass/Vol] 0.2 mg/dL NINF - 0.3 mg/dL [facility] Protein [Mass/Vol] 6.8 g/dL 6.4 - 8.3 g/dL [facility] MAGNESIUMon 09-10-2023 Interpretation and review of laboratory results Normal [facility] Magnesium [Mass/Vol] 1.9 mg/dL 1.6 - 2 .6 mg/dL [facility] No Panel Informationon 09-10 Interpretation and review of laboratory results Abnormal [facility] TACROLIMUS LEVEL, TROUGH ([place] E DRUG LEVEL)Ordered By: Jimy Castillo on 09-10-2023 Interpretation and review of laboratory results Normal [facility] Tacrolimus (Bld) [Mass/Vol] 11.8 ng/mL [facility] CHEM 7 (LYTES,BUN,CREA,GLUC) on 09-09-2023 Anion gap [Moles/Vol] 14 mmol/L 7 - 17 mmol/L [facility] Chloride [Moles/Vol] 113 mmol/L High 98 - 10 8 mmol/L [facility] CO2 [Moles/Vol] 18 mmol/L Low 21 - 31 mmol/L [facility] Creatinine [Mass/Vol] 1.03 mg/dL 0.70 - 1.30 mg/dL [facility] eGFR, CKD-EPI, Male 87 - PINF [facility] Glucose [Mass/Vol] 106 mg/dL High 70 - 99 mg/dL [facility] Interpretation and review of laboratory results Abnormal [facility] Osmolality Calc [Osmolality] [address] [facility] Potassium [Moles/Vol] 4.0 mmol/L 3.5 - 5.0 mmol/L [facility] Sodium [Moles/Vol] 141 mmol/L 135 - 145 mmol/L [facility] Urea nitrogen [Mass/Vol] 10 mg/dL 7 - 25 mg/dL [facility] Urea nitrogen/Creatinine [Mass ratio] 10 mg/mg [facility] MAGNESIUMon 09-09-2023 Magnesium [Mass/Vol] 1.6 mg/dL 1.6 - 2 .6 mg/dL [facility] No Panel Informationon 09-09 Interpretation and review of laboratory results Normal [facility] PHOSPHATE, INORGANICon 09-09 Phosphate [Mass/Vol] 3.8 mg/dL 2.2 - 4 .6 mg/dL [facility] TACROLIMUS LEVEL, TROUGH ([place] E DRUG LEVEL)on 09-09-2023 Interpretation and review of laboratory results Normal [facility] Tacrolimus (Bld) [Mass/Vol] 9.2 ng/mL [facility] CBC,PLATELETSon 09-08-2023 Erythrocyte distribution width (RBC) [Ratio] 13.6 % 10.9 - 14.3 % [facility] Hematocrit (Bld) [Volume fraction] 36.1 % Low 39.6 - 48.8 % [facility] Hemoglobin (Bld) [Mass/Vol] 11.6 g/dL Low 13.4 - 16.8 g/dL [facility] Interpretation and review of laboratory results Abnormal [facility] MCH (RBC) [Entitic mass] 27.4 pg 26.1 - 33.[address] [facility] MCHC (RBC) [Mass/Vol] 32.1 g/dL 31.9 - 36.5 g/dL [facility] MCV (RBC) [Entitic vol] 85.1 fL 79.0 - 94.[address] [facility] Platelet mean volume (Bld) [Entitic vol] 9.5 fL 8.7 - 12.[address] [facility] Platelets (Bld) [#/Vol] 182 10*3/uL 146 - 337 K/uL [facility] RBC (Bld) [#/Vol] 4.24 10*6/uL Low [facility] WBC (Bld) [#/Vol] 4.59 10*3/uL 3.73 - 10. 10 K/uL [facility] CHEM 7 (LYTES,BUN,CREA,GLUC) on 09-08-2023 Anion gap [Moles/Vol] 12 mmol/L 7 - 17 mmol/L [facility] Chloride [Moles/Vol] 113 mmol/L High 98 - 10 8 mmol/L [facility] CO2 [Moles/Vol] 21 mmol/L 21 - 31 mmol/L [facility] Creatinine [Mass/Vol] 1.14 mg/dL 0.70 - 1.30 mg/dL [facility] eGFR, CKD-EPI, Male 77 - PINF [facility] Glucose [Mass/Vol] 107 mg/dL High 70 - 99 mg/dL [facility] Osmolality Calc [Osmolality] [address] [facility] Potassium [Moles/Vol] 3.9 mmol/L 3.5 - 5.0 mmol/L [facility] Sodium [Moles/Vol] 142 mmol/L 135 - 145 mmol/L [facility] Urea nitrogen [Mass/Vol] 11 mg/dL 7 - 25 mg/dL [facility] Urea nitrogen/Creatinine [Mass ratio] 10 mg/mg [facility] HEPATIC FUNCTION PANELon Albumin [Mass/Vol] 2.9 g/dL Low 3.5 - 5.0 g/dL [facility] ALP [Catalytic activity/Vol] 133 U/L High 32 - 126 U/L [facility] ALT [Catalytic activity/Vol] 23 U/L 10 - 52 U/L [facility] AST [Catalytic activity/Vol] 23 U/L 10 - 39 U/L [facility] Bilirubin [Mass/Vol] 0.8 mg/dL NINF - 1.5 mg/dL [facility] Bilirubin.direct [Mass/Vol] 0.2 mg/dL NINF - 0.3 mg/dL [facility] Protein [Mass/Vol] 5.9 g/dL Low 6.4 - 8.3 g/dL [facility] MAGNESIUMon 09-08-2023 Interpretation and review of laboratory results Normal [facility] Magnesium [Mass/Vol] 1.8 mg/dL 1.6 - 2 .6 mg/dL [facility] No Panel Informationon 09-08 Interpretation and review of laboratory results Abnormal [facility] PHOSPHATE, INORGANICon 09-08 Interpretation and review of laboratory results Normal [facility] Phosphate [Mass/Vol] 4.1 mg/dL 2.2 - 4 .6 mg/dL [facility] TACROLIMUS LEVEL, TROUGH ([place] E DRUG LEVEL)on 09-08-2023 Interpretation and review of laboratory results Normal [facility] Tacrolimus (Bld) [Mass/Vol] 8.5 ng/mL [facility] CBC,PLATELETSon 09-07-2023 Erythrocyte distribution width (RBC) [Ratio] 13.5 % 10.9 - 14.3 % [facility] Hematocrit (Bld) [Volume fraction] 37.1 % Low 39.6 - 48.8 % [facility] Hemoglobin (Bld) [Mass/Vol] 11.9 g/dL Low 13.4 - 16.8 g/dL [facility] Interpretation and review of laboratory results Abnormal [facility] MCH (RBC) [Entitic mass] 27.7 pg 26.1 - 33.[address] [facility] MCHC (RBC) [Mass/Vol] 32.1 g/dL 31.9 - 36.5 g/dL [facility] MCV (RBC) [Entitic vol] 86.5 fL 79.0 - 94.[address] [facility] Platelet mean volume (Bld) [Entitic vol] 9.6 fL 8.7 - 12.[address] [facility] Platelets (Bld) [#/Vol] 176 10*3/uL 146 - 337 K/uL [facility] RBC (Bld) [#/Vol] 4.29 10*6/uL Low [facility] WBC (Bld) [#/Vol] 4.10 10*3/uL 3.73 - 10. 10 K/uL [facility] CHEM 7 (LYTES,BUN,CREA,GLUC) on 09-07-2023 Anion gap [Moles/Vol] 13 mmol/L 7 - 17 mmol/L [facility] Chloride [Moles/Vol] 113 mmol/L High 98 - 10 8 mmol/L [facility] CO2 [Moles/Vol] 19 mmol/L Low 21 - 31 mmol/L [facility] Creatinine [Mass/Vol] 1.22 mg/dL 0.70 - 1.30 mg/dL [facility] eGFR, CKD-EPI, Male 71 - PINF [facility] Glucose [Mass/Vol] 107 mg/dL High 70 - 99 mg/dL [facility] Osmolality Calc [Osmolality] 295 [facility] Potassium [Moles/Vol] 3.9 mmol/L 3.5 - 5.0 mmol/L [facility] Sodium [Moles/Vol] 141 mmol/L 135 - 145 mmol/L [facility] Urea nitrogen [Mass/Vol] 13 mg/dL 7 - 25 mg/dL [facility] Urea nitrogen/Creatinine [Mass ratio] 11 mg/mg [facility] HEPATIC FUNCTION PANELon Albumin [Mass/Vol] 2.9 g/dL Low 3.5 - 5.0 g/dL [facility] ALP [Catalytic activity/Vol] 111 U/L 32 - 126 U/L [facility] ALT [Catalytic activity/Vol] 18 U/L 10 - 52 U/L [facility] AST [Catalytic activity/Vol] 23 U/L 10 - 39 U/L [facility] Bilirubin [Mass/Vol] 0.8 mg/dL NINF - 1.5 mg/dL [facility] Bilirubin.direct [Mass/Vol] 0.3 mg/dL High NINF - 0.3 mg/dL [facility] Protein [Mass/Vol] 6.0 g/dL Low 6.4 - 8.3 g/dL [facility] MAGNESIUMon 09-07-2023 Interpretation and review of laboratory results Normal [facility] Magnesium [Mass/Vol] 1.7 mg/dL 1.6 - 2 .6 mg/dL [facility] No Panel Informationon 09-07 Interpretation and review of laboratory results Abnormal [facility] PHOSPHATE, INORGANICon 09-07 Interpretation and review of laboratory results Normal [facility] Phosphate [Mass/Vol] 4.4 mg/dL 2.2 - 4 .6 mg/dL [facility] TACROLIMUS LEVEL, TROUGH ([place] E DRUG LEVEL)Ordered By: Elizabeth Maldonado on 09-07-2023 Interpretation and review of laboratory results Normal [facility] Tacrolimus (Bld) [Mass/Vol] 7.8 ng/mL [facility] CBC,PLATELETSon 09-06-2023 Erythrocyte distribution width (RBC) [Ratio] 13.4 % 10.9 - 14.3 % [facility] Hematocrit (Bld) [Volume fraction] 38.4 % Low 39.6 - 48.8 % [facility] Hemoglobin (Bld) [Mass/Vol] 11.9 g/dL Low 13.4 - 16.8 g/dL [facility] Interpretation and review of laboratory results Abnormal [facility] MCH (RBC) [Entitic mass] 26.6 pg 26.1 - 33.[address] [facility] MCHC (RBC) [Mass/Vol] 31.0 g/dL Low 31.9 - 36.5 g/dL [facility] MCV (RBC) [Entitic vol] 85.9 fL 79.0 - 94.[address] [facility] Platelet mean volume (Bld) [Entitic vol] 9.7 fL 8.7 - 12.[address] [facility] Platelets (Bld) [#/Vol] 181 10*3/uL 146 - 337 K/uL [facility] RBC (Bld) [#/Vol] 4.47 10*6/uL [facility] WBC (Bld) [#/Vol] 4.41 10*3/uL 3.73 - 10. 10 K/uL [facility] CHEM 7 (LYTES,BUN,CREA,GLUC) on 09-06-2023 Anion gap [Moles/Vol] 14 mmol/L 7 - 17 mmol/L [facility] Chloride [Moles/Vol] 109 mmol/L High 98 - 10 8 mmol/L [facility] CO2 [Moles/Vol] 19 mmol/L Low 21 - 31 mmol/L [facility] Creatinine [Mass/Vol] 1.26 mg/dL 0.70 - 1.30 mg/dL [facility] eGFR, CKD-EPI, Male 69 - PINF [facility] Glucose [Mass/Vol] 114 mg/dL High 70 - 99 mg/dL [facility] Osmolality Calc [Osmolality] [address] [facility] Potassium [Moles/Vol] 4.1 mmol/L 3.5 - 5.0 mmol/L [facility] Sodium [Moles/Vol] 138 mmol/L 135 - 145 mmol/L [facility] Urea nitrogen [Mass/Vol] 16 mg/dL 7 - 25 mg/dL [facility] Urea nitrogen/Creatinine [Mass ratio] 13 mg/mg [facility] HEPATIC FUNCTION PANELon Albumin [Mass/Vol] 3.0 g/dL Low 3.5 - 5.0 g/dL [facility] ALP [Catalytic activity/Vol] 115 U/L 32 - 126 U/L [facility] ALT [Catalytic activity/Vol] 25 U/L 10 - 52 U/L [facility] AST [Catalytic activity/Vol] 31 U/L 10 - 39 U/L [facility] Bilirubin [Mass/Vol] 1.0 mg/dL [facility] mg/dL [facility] Bilirubin.direct [Mass/Vol] 0.3 mg/dL High NINF - 0.3 mg/[facility] [facility] Protein [Mass/Vol] 6.3 g/dL Low 6.4 - 8.3 g/dL [facility] MAGNESIUMon 09-06-2023 Interpretation and review of laboratory results Normal [facility] Magnesium [Mass/Vol] 2.0 mg/dL 1.6 - 2 .6 mg/dL [facility] No Panel Informationon 09-06 Interpretation and review of laboratory results Abnormal [facility] TACROLIMUS LEVEL, TROUGH (MN E DRUG LEVEL)on 09-06-2023 Interpretation and review of laboratory results Normal [facility] Tacrolimus (Bld) [Mass/Vol] 6.7 ng/mL [facility] CBC,PLATELETSon 09-05-2023 Erythrocyte distribution width (RBC) [Ratio] 13.5 % 10.9 - 14.3 % [facility] Hematocrit (Bld) [Volume fraction] 35.6 % Low 39.6 - 48.8 % [facility] Hemoglobin (Bld) [Mass/Vol] 11.4 g/dL Low 13.4 - 16.8 g/dL [facility] Interpretation and review of laboratory results Abnormal [facility] MCH (RBC) [Entitic mass] 27.5 pg 26.1 - 33.[address] [facility] MCHC (RBC) [Mass/Vol] 32.0 g/dL 31.9 - 36.5 g/dL [facility] MCV (RBC) [Entitic vol] 86.0 fL 79.0 - 94.[address] [facility] Platelet mean volume (Bld) [Entitic vol] 10.0 fL 8.7 - 12.[address] [facility] Platelets (Bld) [#/Vol] 170 10*3/uL 146 - 337 K/uL [facility] RBC (Bld) [#/Vol] 4.14 10*6/uL Low [facility] WBC (Bld) [#/Vol] 4.24 10*3/uL 3.73 - 10. 10 K/uL [facility] CHEM 7 (LYTES,BUN,CREA,GLUC) on 09-05-2023 Anion gap [Moles/Vol] 12 mmol/L 7 - 17 mmol/L [facility] Chloride [Moles/Vol] 107 mmol/L 98 - 10 8 mmol/L [facility] CO2 [Moles/Vol] 20 mmol/L Low 21 - 31 mmol/L [facility] Creatinine [Mass/Vol] 1.43 mg/dL High 0.70 - 1.30 mg/dL [facility] eGFR, CKD-EPI, Male 60 Low - PINF [facility] Glucose [Mass/Vol] 111 mg/dL High 70 - 99 mg/dL [facility] Osmolality Calc [Osmolality] [address] [facility] Potassium [Moles/Vol] 4.2 mmol/L 3.5 - 5.0 mmol/L [facility] Sodium [Moles/Vol] 135 mmol/L 135 - 145 mmol/L [facility] Urea nitrogen [Mass/Vol] 18 mg/dL 7 - 25 mg/dL [facility] Urea nitrogen/Creatinine [Mass ratio] 13 mg/mg [facility] CONTINUOUS CARDIAC MONITORIN G STRIPon 09-05-[address] [facility] HEPATIC FUNCTION PANELon Albumin [Mass/Vol] 2.8 g/dL Low 3.5 - 5.0 g/dL [facility] ALP [Catalytic activity/Vol] 103 U/L 32 - 126 U/L [facility] ALT [Catalytic activity/Vol] 26 U/L 10 - 52 U/L [facility] AST [Catalytic activity/Vol] 38 U/L 10 - 39 U/L [facility] Bilirubin [Mass/Vol] 0.9 mg/dL NINF - 1.5 mg/dL [facility] Bilirubin.direct [Mass/Vol] 0.1 mg/dL NINF - 0.3 mg/dL [facility] Protein [Mass/Vol] 6.1 g/dL Low 6.4 - 8.3 g/dL [facility] HISTOPLASMA ANTIGEN, FLUIDon 09-05-2023 FH SOURCE BAL RML [facility] Histo FLD interpretation Negative [facility] Histoplasma Antigen, FLUID Not detected ng/mL [facility] HISTOPLASMA CAPSULATUM/BLAST OMYCES SPECIES,PCR FLUIDon 09-05-2023 HISTO/BLASTO RESULT Negative Not Applicable [facility] Specimen source Nom (Unsp spec) BAL RML [facility] IMMUNOPHENOTYPING, TISSUE/FL UIDon 09-05-2023 BKR DX CODE Use Ordering [facility] Flow Interpretation See Comment [facility] Flow Interpreted by: Yossi Perla MD, PhD [facility] MAGNESIUMon 09-05-2023 Interpretation and review of laboratory results Normal [facility] Magnesium [Mass/Vol] 1.7 mg/dL 1.6 - 2 .6 mg/dL [facility] No Panel Informationon 09-05 Interpretation and review of laboratory results Abnormal [facility] TACROLIMUS LEVEL, TROUGH (MN E DRUG LEVEL)Ordered By: Raymundo Mehta on 09-05-2023 Interpretation and review of laboratory results Normal [facility] Tacrolimus (Bld) [Mass/Vol] 5.3 ng/mL [facility] ARTERIAL BLOOD GAS (FULL GOSS EL)on 09-04-2023 Base excess Calc (Bld) [Moles/Vol] -1.2000 mmol/L -3.0 - 3.0 mmol/L [facility] Calcium.ionized (Bld) [Mass/Vol] 4.79 mg/dL 4.60 - 5.30 mg/dL [facility] Carboxyhemoglobin (Bld) [Mass fraction] 0.7 % NINF - 1.5 % [facility] CO2 (Bld) [Partial pressure] 30 mm[Hg] Low [facility] Glucose [Mass/Vol] 159 mg/dL High 70 - 99 mg/dL [facility] HCO3 (Bld) [Moles/Vol] 22 mmol/L 22 - 28 mmol/L [facility] Hematocrit (Bld) [Volume fraction] 38.0 % Low 40.2 - 50.4 % [facility] Hemoglobin (Bld) [Mass/Vol] 12.6 g/dL Low 13.4 - 16.8 g/dL [facility] Interpretation and review of laboratory results Abnormal [facility] Lactate [Moles/Vol] 2.0 mmol/L High 0.5 - 1. 6 mmol/L [facility] Methemoglobin (Bld) [Mass fraction] 0.0 % NINF - 1.5 % [facility] Oxygen (Bld) [Partial pressure] 62 mm[Hg] Low [facility] Oxygen saturation in Blood 92 % Low 94 - 98 % [facility] Oxyhemoglobin 91 % Low 94 - 98 % [facility] pH (Bld) 7.48 [pH] High 7.35 - 7.45 [facility] Potassium [Moles/Vol] 4.2 mmol/L 3.5 - 5.0 mmol/L [facility] Sodium [Moles/Vol] 130 mmol/L Low 135 - 145 mmol/L [facility] Specimen source Nom (Unsp spec) Arterial [facility] Bacteria identified Respirat ory culture Nom (Unsp spec)on 09-04-2023 Bacteria identified Cx Nom (Unsp spec) NO GROWTH DAY 2 OF 2 [facility] Microscopic observation Other stain Nom (Unsp spec) Cytocentrifuge preparation [facility] Microscopic observation Other stain Nom (Unsp spec) Neutrophils, Rare [facility] Microscopic observation Other stain Nom (Unsp spec) Red Blood Cells Present [facility] Microscopic observation Other stain Nom (Unsp spec) No organisms seen [facility] Bacteria identified Respirat ory culture Nom (Unsp spec)Ordered By: Jose Salgado on 09-04-2023 Bacteria identified Cx Nom (Unsp spec) NO GROWTH DAY 2 OF 2 [facility] Microscopic observation Other stain Nom (Unsp spec) Cytocentrifuge preparation [facility] Microscopic observation Other stain Nom (Unsp spec) Neutrophils, Moderate [facility] Microscopic observation Other stain Nom (Unsp spec) Red Blood Cells Present [facility] Microscopic observation Other stain Nom (Unsp spec) No organisms seen [facility] CBC,PLATELETSon 09-04-2023 Erythrocyte distribution width (RBC) [Ratio] 13.2 % 10.9 - 14.3 % [facility] Hematocrit (Bld) [Volume fraction] 38.7 % Low 39.6 - 48.8 % [facility] Hemoglobin (Bld) [Mass/Vol] 12.3 g/dL Low 13.4 - 16.8 g/dL [facility] Interpretation and review of laboratory results Abnormal [facility] MCH (RBC) [Entitic mass] 27.9 pg 26.1 - 33.[address] [facility] MCHC (RBC) [Mass/Vol] 31.8 g/dL Low 31.9 - 36.5 g/dL [facility] MCV (RBC) [Entitic vol] 87.8 fL 79.0 - 94.[address] [facility] Platelet mean volume (Bld) [Entitic vol] 9.8 fL 8.7 - 12.[address] [facility] Platelets (Bld) [#/Vol] 173 10*3/uL 146 - 337 K/uL [facility] RBC (Bld) [#/Vol] 4.41 10*6/uL [facility] WBC (Bld) [#/Vol] 4.57 10*3/uL 3.73 - 10. 10 K/uL [facility] CHEM 7 (LYTES,BUN,CREA,GLUC) on 09-04-2023 Anion gap [Moles/Vol] 16 mmol/L 7 - 17 mmol/L [facility] Chloride [Moles/Vol] 104 mmol/L 98 - 10 8 mmol/L [facility] CO2 [Moles/Vol] 18 mmol/L Low 21 - 31 mmol/L [facility] Creatinine [Mass/Vol] 1.22 mg/dL 0.70 - 1.30 mg/dL [facility] eGFR, CKD-EPI, Male 71 - PINF [facility] Glucose [Mass/Vol] 124 mg/dL High 70 - 99 mg/dL [facility] Osmolality Calc [Osmolality] [address] [facility] Potassium [Moles/Vol] 3.9 mmol/L 3.5 - 5.0 mmol/L [facility] Sodium [Moles/Vol] 134 mmol/L Low 135 - 145 mmol/L [facility] Urea nitrogen [Mass/Vol] 15 mg/dL 7 - 25 mg/dL [facility] Urea nitrogen/Creatinine [Mass ratio] 12 mg/mg [facility] CMV PCR,FLUIDS,URINE,EYE ETC on 09-04-2023 Specimen source Nom (Unsp spec) BAL LLL [facility] Specimen source Nom (Unsp spec) BAL RML [facility] HEPATIC FUNCTION PANELon Albumin [Mass/Vol] 3.0 g/dL Low 3.5 - 5.0 g/dL [facility] ALP [Catalytic activity/Vol] 112 U/L 32 - 126 U/L [facility] ALT [Catalytic activity/Vol] 22 U/L 10 - 52 U/L [facility] AST [Catalytic activity/Vol] 30 U/L 10 - 39 U/L [facility] Bilirubin [Mass/Vol] 1.2 mg/dL NINF - 1.5 mg/dL [facility] Bilirubin.direct [Mass/Vol] 0.4 mg/dL High NINF - 0.3 mg/dL [facility] Protein [Mass/Vol] 6.4 g/dL 6.4 - 8.3 g/dL [facility] LEGIONELLA PCRon 09-04-2023 Legionella sp rRNA Probe Ql (Unsp spec) Negative Not Applicable [facility] Specimen source Nom (Unsp spec) BAL RML [facility] Laboratory - Microbiology an d Antimicrobial susceptibilityon 09-04-2023 CMV DNA ESTELITA+probe Ql (Unsp spec) Negative Negative [facility] MAGNESIUMon 09-04-2023 Magnesium [Mass/Vol] 1.4 mg/dL Low 1.6 - 2 .6 mg/dL [facility] No Panel Informationon 09-04 Annotation comment [Interpretation] Narrative DNR [facility] PN Report Status DNR [facility] Pneumocystis jiroveci,PCR result Negative Not Applicable [facility] Interpretation and review of laboratory results Abnormal [facility] PNEUMOCYSTIS JIROVECI,PCRon 09-04-2023 Specimen source Nom (Unsp spec) BAL LLL [facility] Specimen source Nom (Unsp spec) BAL RML [facility] Portable XR Chest Viewson RADIOLOGY RADIOLOGY [facility] Radiology Study observation (narrative) [facility] Portable XR Chest ViewsOrder ed By: Joanie Nugent on 09-04-[address] [facility] Work Phone: TACROLIMUS LEVEL, TROUGH (MN E DRUG LEVEL)on 09-04-2023 Interpretation and review of laboratory results Abnormal [facility] Tacrolimus (Bld) [Mass/Vol] 3.6 ng/mL Low [facility] ASPERGILLUS ANTIGEN, BALon 1 Galactomannan Ag IA Qn (Unsp spec) <0.500 NINF [facility] Galactomannan Ag IA Qn (Unsp spec) <0.500 [facility] BAL CONSULTOrdered By: Noa Peralta on 09-03-2023 ALVEOLAR MACROPHAGES 32 % [facility] Work Phone: Bal comments Correlation with microbiology stains and cultures is recommended. [facility] Work Phone: Bal Diff Quik Stain Quality Check Acceptable [facility] Work Phone: BKR BAL INTERPRETATION Cellular specimen comprised of alveolar macrophages and small lymphocytes. No definitive microorganisms are observed. Moderate degenerative changes. [facility] Work Phone: BKR DX CODE Use Ordering [facility] Work Phone: Eosinophils Patterson stain Ql (Unsp spec) 0 % [facility] Work Phone: Lymphocytes/100 WBC (Bld) 57 % [facility] Work Phone: Neutrophils/100 WBC Manual cnt (Bronch spec) 11 % [facility] Work Phone: Pathologist review Jame (Unsp spec) [Interp] Leonardo Peralta MD [facility] Work Phone: [facility] Work Phone: BAL CONSULTon 09-03-2023 ALVEOLAR MACROPHAGES 33 % [facility] Bal comments Correlation with microbiology stains and cultures is recommended. Correlation with viral studies is recommended. [facility] Bal Diff Quik Stain Quality Check Acceptable [facility] BKR BAL INTERPRETATION Cellular specimen comprised of alveolar macrophages and small lymphocytes. No definitive microorganisms are observed. Rare degenerating cells with changes suggestive of viral cytopathic effect are noted. Moderate degenerative changes. [facility] BKR DX CODE Use Ordering [facility] Eosinophils Patterson stain Ql (Unsp spec) 0 % [facility] Lymphocytes/100 WBC (Bld) 49 % [facility] Neutrophils/100 WBC Manual cnt (Bronch spec) 18 % [facility] Pathologist review Jame (Unsp spec) [Interp] Leonardo Peralta MD [facility] BRONCHOSCOPYon 09-03-2023 LAB, [facility] CBC,PLATELETSon 09-03-2023 Erythrocyte distribution width (RBC) [Ratio] 13.4 % 10.9 - 14.3 % [facility] Hematocrit (Bld) [Volume fraction] 39.6 % 39.6 - 48.8 % [facility] Hemoglobin (Bld) [Mass/Vol] 12.8 g/dL Low 13.4 - 16.8 g/dL [facility] Interpretation and review of laboratory results Abnormal [facility] MCH (RBC) [Entitic mass] 27.8 pg 26.1 - 33.[address] [facility] MCHC (RBC) [Mass/Vol] 32.3 g/dL 31.9 - 36.5 g/dL [facility] MCV (RBC) [Entitic vol] 85.9 fL 79.0 - 94.[address] [facility] Platelet mean volume (Bld) [Entitic vol] 9.4 fL 8.7 - 12.[address] [facility] Platelets (Bld) [#/Vol] 222 10*3/uL 146 - 337 K/uL [facility] RBC (Bld) [#/Vol] 4.61 10*6/uL [facility] WBC (Bld) [#/Vol] 4.36 10*3/uL 3.73 - 10. 10 K/uL [facility] CHEM 7 (LYTES,BUN,CREA,GLUC) on 09-03-2023 Anion gap [Moles/Vol] 12 mmol/L 7 - 17 mmol/L [facility] Chloride [Moles/Vol] 104 mmol/L 98 - 10 8 mmol/L [facility] CO2 [Moles/Vol] 24 mmol/L 21 - 31 mmol/L [facility] Creatinine [Mass/Vol] 1.20 mg/dL 0.70 - 1.30 mg/dL [facility] eGFR, CKD-EPI, Male 73 - PINF [facility] Glucose [Mass/Vol] 112 mg/dL High 70 - 99 mg/dL [facility] Osmolality Calc [Osmolality] [address] [facility] Potassium [Moles/Vol] 4.1 mmol/L 3.5 - 5.0 mmol/L [facility] Sodium [Moles/Vol] 136 mmol/L 135 - 145 mmol/L [facility] Urea nitrogen [Mass/Vol] 17 mg/dL 7 - 25 mg/dL [facility] Urea nitrogen/Creatinine [Mass ratio] 14 mg/mg [facility] CYTOLOGY, NON-GYNOrdered By: Sherice Jimenez on 09-03-2023 CYTOLOGIC DIAGNOSIS [id number] vTBAhgZQmI5BtweiyYQcyWJ1tUA 3kcTaccMPhlXSkIPOvKnXlz5imq 895bBEdm9bmUDAOillufHq4d8vq YEFThZ8gs9c4zY67FEMbxO2qhQJ zRPbfzxNvEJmcjoLyktBdZwc2XO I6xYrlJdmdbJF6qGSknHP6AZkcg 1GjzRegnXysSVB0JKLvUjllSZzq jGH9mMZjdMtgsIYyLK4iw8gwfZS 7vtLbLXJ2nRjjfXY8yLuseghtm1 uahIV3iXQ5UFgqpIB8YWyqGdPoU 6vwCFQliN8nA26nL4reMNVppJqi LXiiMNSraOA7DVF6PEGax2trODP nvCIjaGBcBrHcKMnzFvf4b0tcPD WteQ43xVLlzwJ0vLzwDOsixFC3L R29CJesb5ZlNTFxbIecCSAzxS3m YzIzXGxldmVsbmZjbjIzXGxldmV paoTfQMmqzgVvk9AradGplZG7XA akfwQerDU3bIvwFASyV6D8X672D BmmynNxwtSjBlQxtcs4NPBekHly bGlzdGxldmVsXGxldmVsbmZjMjN ojKV5VRapAmLnKhSslMC8ZMdxWd NtuRC4DSbafGJqsMT7ZZjpgTC3V Qo0SOs4FEfiWTyyXjy2cJzdiHY6 QRrwpV9pYWIoI26sGiI4f5fnvRA 4tFK7EGbaeXY3MUlxDdZaK5oeAO LwpF9vG10lH2qvDEDfqSooLGvqX JDqxOO4ERS2EXIqm1gpQHTmwFOd aWKqXlZxCPnsNdc6t4kaSQBcnH1 9mZLkugG8mJlwEU42ZRphe8ZiSS QytZemWVRqqE3jYjRcWAtbjpGnf mZjbjIzXGxldmVsamMwXGxldmVs z7ErwnAyiPM6AQkjegMsnRP5hWe hDEDcV7W9D473NXfrczYkdmTwBs Phddn9QWPriDmlcAurfXusiyIzZ MdzbeWzhgPxTaKmqVG3GPxaMxMv CcGstBY2VJfkHvUxcUU1WZjxoCE ykBL7CNwqvYS7GFo7TZg9ZZtwDI doQrk7qEmjgBH5JTgldA7mAXFzQ 81fWvY8j0zgeZB4cUL6MSzmdIK2 CXzgWhYnB7ybTDOovH7vF47eC1l zSKYitBpmEGfvDFApwZK5JKK7KR Guw8huUBSugDXdbQKlOtGzRMzqA ky6d8gsMMWzxY25iFMmdqA2zBno NU63BZjbv4XbACRvwQljICWsnC6 mYzIzXGxldmVsbmZjbjIzXGxldm IsudUkBPwofsFqk7EuhnAawUX1E RnpclNdgQM9pOyzVKTaA7M1V502 NOwqnfMizmLcKuTocwv6PDKiwEb cbGlzdGxldmVsXGxldmVsbmZjMj RlmRD3ENozDcPzSvUkbEJ9QQegN xYdcUA2WVntuXLxcKH5LXhuzNS8 BAx0TWt1IVjaZYgzHko3xVausMS 4QBfelC9zSBSgH87zPbK8qN99JU kbsQzwtD21UQYemKRqhEPchPI8F YmjyZonmZ12NBQbsAGxIAihf9Hz HWCrFjW5YOR0USBcoWjazX50EEV dgOCqF470gaHfEYhtQG60AGHntD PrwiBuMoQrMLJldGJrtIU7RCWbV P2xdwfoMBjaPJfcZJHgjaC5FEBn wKHvS1GuHLXiEU2gpfikXBH0DMy zQREwDSK7WkHiZHOsk6Tvxvt6Lf MmpVx7q8jqYGOkRGNpwTfqa9bgP FV6LPNphBDgN5oylM1yLVMvYO4e ywmqi3vtOUfmZNrzVCWcsBS0hpN 3DSGwbEExY6KwaM7wTQDbPKCgcw BuvJtwoT5nTvtvweBvZUMqMTRZH eMAUo7VO7oLMKhYUW4ZWRKeAILG CFkPMNTGWJLKEMoQR6HCMTfFUmU mYSCwVPGoZ3pGC3qHA8ebPuhlDa PaRGdeQYGpPhYlH3DoYGYgukgwC MGiHAWABA9XTCRJNOVFXw5LYBF2 IBHnxblccVA1NEkswvMriGe9lYY wkLnbdO9ySvirgmDqPCYsSXDYjq HQRFsgV18ykbRxY3WcqYVaLEKkR ZcmFQ03jAIdZPVxvPGjJVp4qA4f MJeseBudyuUXfMYchS0tliabGMw jZjBccGFyXGxpMFxsczBccGFyfQ == [facility] Work Phone: Case Report [facility] Work Phone: Clinical History e8ilsECrBWXrjZUdJWOr F2bivcG dFPDrwEHcQ0IbuufgVSkqQF6cZW 5qtSotvEKmkENpOMOqWnDha3lii 492cEBkr7rqQGAOnkwheRc0gMov Q43xl8G3BbtnM3ixIRWsZUerICV dVGfqhKPnBVt0HTGbbGXjbgWuYg PaMOOegNFlzMD3EQNoPD2wzezcA TenYBxmFQPfmrZ6SBGmiFJqW8Kd QJJiUV3artadSUH7XLgbVVQcCUT 1YeBgQJGin4Xpbzj2XdRcoFf3c6 otMABpQPBvyQqxe2qkXTL4PDVeg FDoY5dftC4jCVElXT7xjlhsy2yh IIgkGMrbEVDedRR9qlW5TIYfjRH sR3RpcI7bXCGaASAjmwKacDujqV 5cZnMyMFxjZjEgUmVuYWwgdHJhb vYurRIkwI4iUONmxa7= [facility] Work Phone: For Immediate Release to Patient's MyChart? Yes Yes [facility] Work Phone: Gross Description z8kbeULlNEYzcDPqLTJm H3ngfkO uBGSyaURgX5GipurzTXwvOL0cSS 3qvMrqeBUcwCWgMEMfUuXnq0gdc 385gMCot7nxRRBLxewdyMb2bUaj A38ok2B9ScvoE56zjXRkJWL3TEF uTHAzwNDcCXXjQAV4GZTrfPOhM9 buBCEwFX5zxhsbOLoiFJilXOSmr KY4IAIsiGBpR6QwTGAsECmhAMTr llp3BuMgXt4koYLabWlrWIaeUHU kXHBsYWluXGZzMjAgTExMIEJBTF mwXSOqRWOsyODwTGz3URNmjJ8nv ZHehaZxcVPjtC3xkTbyCRcjWEVt NNPFFURkyZihDUNBBISrj2ClbF7 ccGFyXHBhcmRccGFyXHBhcn0= [facility] Work Phone: [facility] Work Phone: HEPATIC FUNCTION PANELon Albumin [Mass/Vol] 3.2 g/dL Low 3.5 - 5.0 g/dL [facility] ALP [Catalytic activity/Vol] 118 U/L 32 - 126 U/L [facility] ALT [Catalytic activity/Vol] 25 U/L 10 - 52 U/L [facility] AST [Catalytic activity/Vol] 32 U/L 10 - 39 U/L [facility] Bilirubin [Mass/Vol] 1.0 mg/dL NINF - 1.5 mg/dL [facility] Bilirubin.direct [Mass/Vol] 0.3 mg/dL High NINF - 0.3 mg/dL [facility] Protein [Mass/Vol] 6.5 g/dL 6.4 - 8.3 g/dL [facility] HISTOPLASMA AND BLASTOMYCES ANTIGEN, ENZYME IMMUNOASSAY, SERMon 09-03-2023 Histoplasma/Blastomy antonia Ag Result Detected Critically abnormal Not Detected [facility] Histoplasma/Blastomy antonia Ag Value 5.3 ng/mL [facility] Interpretation and review of laboratory results Abnormal [facility] MAGNESIUMon 09-03-2023 Interpretation and review of laboratory results Normal [facility] Magnesium [Mass/Vol] 1.6 mg/dL 1.6 - 2 .6 mg/dL [facility] No Panel Informationon 09-03 Interpretation and review of laboratory results Abnormal [facility] PARVOVIRUS (B19) DNA, PCR, B LOODon 09-03-2023 PARVOVIRUS B19 BY RAPID PCR Not detected Not Detected [facility] MN SPEC SOURCE Whole Blood [facility] Portable XR Chest Viewson RADIOLOGY RADIOLOGY [facility] Radiology Study observation (narrative) [facility] Portable XR Chest ViewsOrder ed By: Lester Grove on 09-03-[address] [facility] Work Phone: ASPERGILLUS (GALACTOMANNAN), ANTIGENon 09-02-2023 Galactomannan Ag IA Qn <0.500 NINF [facility] ATYPICAL BACTERIAL PNEUMONIA ,PCROrdered By: Shari Contreras on 09-02-2023 B. parapertussis DNA ESTELITA+probe Ql (Unsp spec) Not detected Not Detected [facility] B. pertussis DNA ESTELITA+probe Ql (Unsp spec) Not detected Not Detected [facility] C. pneumoniae DNA ESTELITA+probe Ql (Unsp spec) Not detected Not Detected [facility] Interpretation and review of laboratory results Normal [facility] M. pneumoniae DNA ESTELITA+probe Ql (Unsp spec) Not detected Not Detected [facility] BRONCHOSCOPYon 09-02-2023 Radiology Study observation (narrative) [facility] Bacteria identified Cx Nom ( Bld)on 09-02-2023 Bacteria identified Cx Nom (Unsp spec) NO GROWTH DAY 5 OF 5 [facility] CBC,PLATELETSon 09-02-2023 Erythrocyte distribution width (RBC) [Ratio] 13.2 % 10.9 - 14.3 % [facility] Hematocrit (Bld) [Volume fraction] 39.9 % 39.6 - 48.8 % [facility] Hemoglobin (Bld) [Mass/Vol] 12.9 g/dL Low 13.4 - 16.8 g/dL [facility] Interpretation and review of laboratory results Abnormal [facility] MCH (RBC) [Entitic mass] 27.9 pg 26.1 - 33.[address] [facility] MCHC (RBC) [Mass/Vol] 32.3 g/dL 31.9 - 36.5 g/dL [facility] MCV (RBC) [Entitic vol] 86.4 fL 79.0 - 94.[address] [facility] Platelet mean volume (Bld) [Entitic vol] 9.5 fL 8.7 - 12.[address] [facility] Platelets (Bld) [#/Vol] 210 10*3/uL 146 - 337 K/uL [facility] RBC (Bld) [#/Vol] 4.62 10*6/uL [facility] WBC (Bld[facility] [#/Vol] 4.12 10*3/uL 3.73 - 10. 10 K/[facility]L [facility] CHEM 7 (LYTES,BUN,CREA,GLUC) on 09-02-2023 Anion gap [Moles/Vol] 13 mmol/L 7 - 17 mmol/L [facility] Chloride [Moles/Vol] 105 mmol/L 98 - 10 8 mmol/L [facility] CO2 [Moles/Vol] 22 mmol/L 21 - 31 mmol/L [facility] Creatinine [Mass/Vol] 1.25 mg/dL 0.70 - 1.30 mg/dL [facility] eGFR, CKD-EPI, Male 69 - PINF [facility] Glucose [Mass/Vol] 105 mg/dL High 70 - 99 mg/dL [facility] Osmolality Calc [Osmolality] 287 [facility] Potassium [Moles/Vol] 4.3 mmol/L 3.5 - 5.0 mmol/L [facility] Sodium [Moles/Vol] 136 mmol/L 135 - 145 mmol/L [facility] Urea nitrogen [Mass/Vol] 16 mg/dL 7 - 25 mg/dL [facility] Urea nitrogen/Creatinine [Mass ratio] 13 mg/mg [facility] HEPATIC FUNCTION PANELon Albumin [Mass/Vol] 3.2 g/dL Low 3.5 - 5.0 g/dL [facility] ALP [Catalytic activity/Vol] 107 U/L 32 - 126 U/L [facility] ALT [Catalytic activity/Vol] 20 U/L 10 - 52 U/L [facility] AST [Catalytic activity/Vol] 31 U/L 10 - 39 U/L [facility] Bilirubin [Mass/Vol] 1.0 mg/dL NINF - 1.5 mg/dL [facility] Bilirubin.direct [Mass/Vol] 0.3 mg/dL High NINF - 0.3 mg/dL [facility] Protein [Mass/Vol] 6.6 g/dL 6.4 - 8.3 g/dL [facility] HISTOPLASMA ANTIGEN,URINEon 09-02-2023 H. capsulatum Ag (U) [Mass/Vol] Not detected ng/mL [facility] H. capsulatum Ag IA Ql (U) Not detected Not Detected [facility] HIV 1 AND 2 ANTIBODIES/P24 A NTIGENOrdered By: Wilma Luque on 09-02-2023 HIV 1+2 Ab+HIV1 p24 Ag IA Ql Non-Reactive Non Reactive [facility] Interpretation and review of laboratory results Normal [facility] MAGNESIUMon 09-02-2023 Interpretation and review of laboratory results Normal [facility] Magnesium [Mass/Vol] 1.7 mg/dL 1.6 - 2 .6 mg/dL [facility] No Panel Informationon 09-02 Interpretation and review of laboratory results Abnormal [facility] TACROLIMUS LEVEL, TROUGH (MN E DRUG LEVEL)on 09-02-2023 Interpretation and review of laboratory results Normal [facility] Tacrolimus (Bld) [Mass/Vol] 4.2 ng/mL [facility] CBC,PLATELETSon 09-01-2023 Erythrocyte distribution width (RBC) [Ratio] 13.4 % 10.9 - 14.3 % [facility] Hematocrit (Bld) [Volume fraction] 38.9 % Low 39.6 - 48.8 % [facility] Hemoglobin (Bld) [Mass/Vol] 12.7 g/dL Low 13.4 - 16.8 g/dL [facility] Interpretation and review of laboratory results Abnormal [facility] MCH (RBC) [Entitic mass] 27.6 pg 26.1 - 33.[address] [facility] MCHC (RBC) [Mass/Vol] 32.6 g/dL 31.9 - 36.5 g/dL [facility] MCV (RBC) [Entitic vol] 84.6 fL 79.0 - 94.[address] [facility] Platelet mean volume (Bld) [Entitic vol] 9.4 fL 8.7 - 12.[address] [facility] Platelets (Bld) [#/Vol] 209 10*3/uL 146 - 337 K/uL [facility] RBC (Bld) [#/Vol] 4.60 10*6/uL [facility] WBC (Bld) [#/Vol] 4.41 10*3/uL 3.73 - 10. 10 K/uL [facility] CHEM 7 (LYTES,BUN,CREA,GLUC) on 09-01-2023 Anion gap [Moles/Vol] 14 mmol/L 7 - 17 mmol/L [facility] Chloride [Moles/Vol] 103 mmol/L 98 - 10 8 mmol/L [facility] CO2 [Moles/Vol] 21 mmol/L 21 - 31 mmol/L [facility] Creatinine [Mass/Vol] 1.16 mg/dL 0.70 - 1.30 mg/dL [facility] eGFR, CKD-EPI, Male 76 - PINF [facility] Glucose [Mass/Vol] 117 mg/dL High 70 - 99 mg/dL [facility] Osmolality Calc [Osmolality] 285 [facility] Potassium [Moles/Vol] 4.2 mmol/L 3.5 - 5.0 mmol/L [facility] Sodium [Moles/Vol] 134 mmol/L Low 135 - 145 mmol/L [facility] Urea nitrogen [Mass/Vol] 18 mg/dL 7 - 25 mg/dL [facility] Urea nitrogen/Creatinine [Mass ratio] 16 mg/mg [facility] CRYPTOCOCCAL ANTIGENon 09-01 Cryptococcus sp Ag Ql (S) Negative Negative [facility] Interpretation and review of laboratory results Normal [facility] HEPATIC FUNCTION PANELon Albumin [Mass/Vol] 3.3 g/dL Low 3.5 - 5.0 g/dL [facility] ALP [Catalytic activity/Vol] 112 U/L 32 - 126 U/L [facility] ALT [Catalytic activity/Vol] 21 U/L 10 - 52 U/L [facility] AST [Catalytic activity/Vol] 29 U/L 10 - 39 U/L [facility] Bilirubin [Mass/Vol] 1.0 mg/dL NINF - 1.5 mg/dL [facility] Bilirubin.direct [Mass/Vol] 0.2 mg/dL NINF - 0.3 mg/dL [facility] Protein [Mass/Vol] 6.8 g/dL 6.4 - 8.3 g/dL [facility] L. pneumophila 1 Ag IA Ql (U )Ordered By: Carolin Miles on 09-01-2023 Interpretation and review of laboratory results Normal [facility] LEGIONELLA URINARY AGOrdered By: Carolin Miles on 09-01-2023 L. pneumophila 1 Ag IA Ql (U) Negative Negative [facility] MAGNESIUMon 09-01-2023 Interpretation and review of laboratory results Normal [facility] Magnesium [Mass/Vol] 1.6 mg/dL 1.6 - 2 .6 mg/dL [facility] No Panel Informationon 09-01 Interpretation and review of laboratory results Abnormal [facility] CBC,PLATELETSon 08-31-2023 Erythrocyte distribution width (RBC) [Ratio] 13.3 % 10.9 - 14.3 % [facility] Hematocrit (Bld) [Volume fraction] 39.4 % Low 39.6 - 48.8 % [facility] Hemoglobin (Bld) [Mass/Vol] 12.8 g/dL Low 13.4 - 16.8 g/dL [facility] Interpretation and review of laboratory results Abnormal [facility] MCH (RBC) [Entitic mass] 27.6 pg 26.1 - 33.[address] [facility] MCHC (RBC) [Mass/Vol] 32.5 g/dL 31.9 - 36.5 g/dL [facility] MCV (RBC) [Entitic vol] 85.1 fL 79.0 - 94.[address] [facility] Platelet mean volume (Bld) [Entitic vol] 9.6 fL 8.7 - 12.3 fL [facility] Platelets (Bld) [#/Vol] 228 10*3/uL 146 - 337 K/uL [facility] RBC (Bld) [#/Vol] 4.63 10*6/uL [facility] WBC (Bld) [#/Vol] 4.77 10*3/uL 3.73 - 10. 10 K/uL [facility] CHEM 7 (LYTES,BUN,CREA,GLUC) on 08-31-2023 Anion gap [Moles/Vol] 13 mmol/L 7 - 17 mmol/L [facility] Chloride [Moles/Vol] 102 mmol/L 98 - 10 8 mmol/L [facility] CO2 [Moles/Vol] 23 mmol/L 21 - 31 mmol/L [facility] Creatinine [Mass/Vol] 1.37 mg/dL High 0.70 - 1.30 mg/dL [facility] eGFR, CKD-EPI, Male 62 - PINF [facility] Glucose [Mass/Vol] 112 mg/dL High 70 - 99 mg/dL [facility] Osmolality Calc [Osmolality] 284 [facility] Potassium [Moles/Vol] 4.4 mmol/L 3.5 - 5.0 mmol/L [facility] Sodium [Moles/Vol] 134 mmol/L Low 135 - 145 mmol/L [facility] Urea nitrogen [Mass/Vol] 16 mg/dL 7 - 25 mg/dL [facility] Urea nitrogen/Creatinine [Mass ratio] 12 mg/mg [facility] Abdomen and Pelvis WO con traston 08-31-2023 RADIOLOGY [address] [facility] Radiology Study observation (narrative) [facility] CT Abdomen and Pelvis WO con trastOrdered By: Chavez Larkin on 08-31-[address] [facility] Work Phone: CT Chest WO contraston 08-31 RADIOLOGY RADIOLOGY [facility] Radiology Study observation (narrative) [facility] CT Chest WO contrastOrdered By: Daisha Patterson on 08-31-[address] [facility] Work Phone: FERRITINon 08-31-2023 Ferritin [Mass/Vol] 409.0 ng/mL High 10.5 - 3 07.3 ng/mL [facility] Interpretation and review of laboratory results Abnormal [facility] HEPATIC FUNCTION PANELon Albumin [Mass/Vol] 3.3 g/dL Low 3.5 - 5.0 g/dL [facility] ALP [Catalytic activity/Vol] 113 U/L 32 - 126 U/L [facility] ALT [Catalytic activity/Vol] 25 U/L 10 - 52 U/L [facility] AST [Catalytic activity/Vol] 31 U/L 10 - 39 U/L [facility] Bilirubin [Mass/Vol] 1.1 mg/dL NINF - 1.5 mg/dL [facility] Bilirubin.direct [Mass/Vol] 0.3 mg/dL High NINF - 0.3 mg/dL [facility] Protein [Mass/Vol] 7.0 g/dL 6.4 - 8.3 g/dL [facility] MAGNESIUMon 08-31-2023 Interpretation and review of laboratory results Normal [facility] Magnesium [Mass/Vol] 1.7 mg/dL 1.6 - 2 .6 mg/dL [facility] No Panel Informationon 08-31 Interpretation and review of laboratory results Abnormal [facility] PROCALCITONINon 08-31-2023 Interpretation and review of laboratory results Normal [facility] Procalcitonin [Mass/Vol] 0.23 ng/mL NINF - 0.50 ng/mL [facility] TACROLIMUS LEVEL, TROUGH ([place] E DRUG LEVEL)Ordered By: Yanira Marcum on 08-31-2023 Interpretation and review of laboratory results Normal [facility] Tacrolimus (Bld) [Mass/Vol] 5.9 ng/mL [facility] URINE CULTUREOrdered By: Jorge Lozano on 08-31-2023 Bacteria identified Cx Nom (Unsp spec) No Growth [facility] DARYL AURIS SCREEN BY PCRO rdered By: Mynor Alejandro on 08-30-2023 Daryl auris Screen by PCR Not detected Not Detected [facility] Interpretation and review of laboratory results Normal [facility] CBC,PLATELETSon 08-30-2023 Erythrocyte distribution width (RBC) [Ratio] 13.3 % 10.9 - 14.3 % [facility] Hematocrit (Bld) [Volume fraction] 41.3 % 39.6 - 48.8 % [facility] Hemoglobin (Bld) [Mass/Vol] 13.2 g/dL Low 13.4 - 16.8 g/dL [facility] Interpretation and review of laboratory results Abnormal [facility] MCH (RBC) [Entitic mass] 27.3 pg 26.1 - 33.[address] [facility] MCHC (RBC) [Mass/Vol] 32.0 g/dL 31.9 - 36.5 g/dL [facility] MCV (RBC) [Entitic vol] 85.5 fL 79.0 - 94.[address] [facility] Platelet mean volume (Bld) [Entitic vol] 9.2 fL 8.7 - 12.[address] [facility] Platelets (Bld) [#/Vol] 235 10*3/uL 146 - 337 K/uL [facility] RBC (Bld) [#/Vol] 4.83 10*6/uL [facility] WBC (Bld) [#/Vol] 4.96 10*3/uL 3.73 - 10. 10 K/uL [facility] CHEM 7 (LYTES,BUN,CREA,GLUC) on 08-30-2023 Anion gap [Moles/Vol] 14 mmol/L 7 - 17 mmol/L [facility] Chloride [Moles/Vol] 102 mmol/L 98 - 10 8 mmol/L [facility] CO2 [Moles/Vol] 20 mmol/L Low 21 - 31 mmol/L [facility] Creatinine [Mass/Vol] 1.56 mg/dL High 0.70 - 1.30 mg/dL [facility] eGFR, CKD-EPI, Male 54 Low - PINF [facility] Glucose [Mass/Vol] 123 mg/dL High 70 - 99 mg/dL [facility] Osmolality Calc [Osmolality] [address] [facility] Potassium [Moles/Vol] 4.3 mmol/L 3.5 - 5.0 mmol/L [facility] Sodium [Moles/Vol] 132 mmol/L Low 135 - 145 mmol/L [facility] Urea nitrogen [Mass/Vol] 16 mg/dL 7 - 25 mg/dL [facility] Urea nitrogen/Creatinine [Mass ratio] 10 mg/mg [facility] EXTRA MICROon 08-30-[address] [facility] HEPATIC FUNCTION PANELon Albumin [Mass/Vol] 3.7 g/dL 3.5 - 5.0 g/dL [facility] ALP [Catalytic activity/Vol] 115 U/L 32 - 126 U/L [facility] ALT [Catalytic activity/Vol] 22 U/L 10 - 52 U/L [facility] AST [Catalytic activity/Vol] 34 U/L 10 - 39 U/L [facility] Bilirubin [Mass/Vol] 1.2 mg/dL NINF - 1.5 mg/dL [facility] Bilirubin.direct [Mass/Vol] 0.3 mg/dL High NINF - 0.3 mg/dL [facility] Protein [Mass/Vol] 7.7 g/dL 6.4 - 8.3 g/dL [facility] MAGNESIUMon 08-30-2023 Interpretation and review of laboratory results Normal [facility] Magnesium [Mass/Vol] 1.8 mg/dL 1.6 - 2 .6 mg/dL [facility] No Panel Informationon 08-30 Interpretation and review of laboratory results Abnormal [facility] CBC,PLATELETSon 08-29-2023 Erythrocyte distribution width (RBC) [Ratio] 13.4 % 10.9 - 14.3 % [facility] Hematocrit (Bld) [Volume fraction] 37.6 % Low 39.6 - 48.8 % [facility] Hemoglobin (Bld) [Mass/Vol] 12.2 g/dL Low 13.4 - 16.8 g/dL [facility] Interpretation and review of laboratory results Abnormal [facility] MCH (RBC) [Entitic mass] 27.6 pg 26.1 - 33.[address] [facility] MCHC (RBC) [Mass/Vol] 32.4 g/dL 31.9 - 36.5 g/dL [facility] MCV (RBC) [Entitic vol] 85.1 fL 79.0 - 94.[address] [facility] Platelet mean volume (Bld) [Entitic vol] 9.4 fL 8.7 - 12.[address] [facility] Platelets (Bld) [#/Vol] 233 10*3/uL 146 - 337 K/uL [facility] RBC (Bld) [#/Vol] 4.42 10*6/uL [facility] WBC (Bld) [#/Vol] 4.92 10*3/uL 3.73 - 10. 10 K/uL [facility] CHEM 7 (LYTES,BUN,CREA,GLUC) on 08-29-2023 Anion gap [Moles/Vol] 13 mmol/L 7 - 17 mmol/L [facility] Chloride [Moles/Vol] 105 mmol/L 98 - 10 8 mmol/L [facility] CO2 [Moles/Vol] 20 mmol/L Low 21 - 31 mmol/L [facility] Creatinine [Mass/Vol] 1.55 mg/dL High 0.70 - 1.30 mg/dL [facility] eGFR, CKD-EPI, Male 55 Low - PINF [facility] Glucose [Mass/Vol] 108 mg/dL High 70 - 99 mg/dL [facility] Osmolality Calc [Osmolality] 283 [facility] Potassium [Moles/Vol] 4.5 mmol/L 3.5 - 5.0 mmol/L [facility] Sodium [Moles/Vol] 133 mmol/L Low 135 - 145 mmol/L [facility] Urea nitrogen [Mass/Vol] 19 mg/dL 7 - 25 mg/dL [facility] Urea nitrogen/Creatinine [Mass ratio] 12 mg/mg [facility] GGTon 08-29-2023 Gamma glutamyl transferase [Catalytic activity/Vol] 64 U/L 8 - 64 U/L [facility] Interpretation and review of laboratory results Normal [facility] HEPATIC FUNCTION PANELon Albumin [Mass/Vol] 3.3 g/dL Low 3.5 - 5.0 g/dL [facility] ALP [Catalytic activity/Vol] 103 U/L 32 - 126 U/L [facility] ALT [Catalytic activity/Vol] 18 U/L 10 - 52 U/L [facility] AST [Catalytic activity/Vol] 27 U/L 10 - 39 U/L [facility] Bilirubin [Mass/Vol] 1.1 mg/dL NINF - 1.5 mg/dL [facility] Bilirubin.direct [Mass/Vol] 0.3 mg/dL High NINF - 0.3 mg/dL [facility] Protein [Mass/Vol] 6.8 g/dL 6.4 - 8.3 g/dL [facility] MAGNESIUMon 08-29-2023 Interpretation and review of laboratory results Normal [facility] Magnesium [Mass/Vol] 1.7 mg/dL 1.6 - 2 .6 mg/dL [facility] No Panel Informationon 08-29 Interpretation and review of laboratory results Abnormal [facility] PT,INR,PTTon 08-29-2023 aPTT Coag (PPP) [Time] 29.[address] [facility] INR Coag (Bld) [Relative time] 1.1 {INR} 0.9 - 1.[address] [facility] Interpretation and review of laboratory results Normal [facility] PT Coag (PPP) [Time] 13.8 s [facility] Portable XR Chest Viewson RADIOLOGY RADIOLOGY [facility] Portable XR Chest ViewsOrder ed By: Gerald Baer on 08-29-[address] [facility] Work Phone: TACROLIMUS LEVEL, TROUGH ([place] E DRUG LEVEL)on 08-29-2023 Interpretation and review of laboratory results Normal [facility] Tacrolimus (Bld) [Mass/Vol] 8.9 ng/mL [facility] TACROLIMUS LEVEL, TROUGH (MN E DRUG LEVEL)Ordered By: Roxanne Louie on 08-29-2023 Interpretation and review of laboratory results Normal [facility] Tacrolimus (Bld) [Mass/Vol] 8.7 ng/mL [facility] URINALYSIS REFLEX TO CULTURE PERFORMABLEOrdered By: Shaji Kelly on 08-29-2023 Appearance (U) Clear Clear [facility] Bacteria LM Ql (Urine sed) ABSENT ABSENT [facility] Calcium Oxalate Crystals PRESENT [facility] Color (U) Yellow Yellow [facility] Epithelial cells.squamous LM Ql (Urine sed) 0-2/hpf 0-2/hpf, 3-5/hpf = 1+ [facility] Glucose Test strip (U) [Mass/Vol] Negative Negative [facility] Interpretation and review of laboratory results Abnormal [facility] Ketones (U) [Mass/Vol] Negative Negative [facility] Leukocyte esterase Test strip Ql (U) Negative Negative [facility] Nitrite Ql (U) Negative Negative [facility] pH (U) 6.0 [pH] 5.0 - 7.0 [facility] Protein (U) [Mass/Vol] Negative Negative [facility] RBC (U) [#/Vol] Trace Abnormal Negative [facility] RBC LM.HPF (Urine sed) [#/Area] 3-[address] [facility] Specific gravity (U) [Rel density] 1.015 1.001 - 1.[address] [facility] Urobilinogen (U) [Mass/Vol] 1.0 E.U./dL 0.2 E.U/dL, 1.0 E.U/dL [facility] WBC LM.HPF (Urine sed) [#/Area] 0 - 5 [facility] US for transplanted kidney l imitedon 08-29-2023 RADIOLOGY [address] [facility] Radiology Study observation (narrative) [facility] US for transplanted kidney l imitedOrdered By: Romana Matias on 08-29-[address] [facility] Work Phone: CBC AND ELECTRONIC DIFFon Basophils (Bld) [#/Vol] K/uL 0.00 - 0.09 K/uL [facility] Basophils/100 WBC (Bld) 0.6 % [facility] Differential cell count method Nom (Bld) Electronic Differential [facility] Eosinophils (Bld) [#/Vol] 0.10 10*3/uL 0.00 - 0.48 K/uL [facility] Eosinophils/100 WBC (Bld) 2.1 % [facility] Erythrocyte distribution width (RBC) [Ratio] 13.4 % 10.9 - 14.3 % [facility] Hematocrit (Bld) [Volume fraction] 37.9 % Low 39.6 - 48.8 % [facility] Hemoglobin (Bld) [Mass/Vol] 12.4 g/dL Low 13.4 - 16.8 g/dL [facility] Immature granulocytes (Bld) [#/Vol] K/uL NINF - 0.07 K/uL [facility] Immature granulocytes/100 WBC (Bld) 0.6 % [facility] Interpretation and review of laboratory results Abnormal [facility] Lymphocytes (Bld) [#/Vol] 1.76 10*3/uL 0.83 - 3.57 K/uL [facility] Lymphocytes/100 WBC (Bld) 37.1 % [facility] MCH (RBC) [Entitic mass] 27.8 pg 26.1 - 33.[address] [facility] MCHC (RBC) [Mass/Vol] 32.7 g/dL 31.9 - 36.5 g/dL [facility] MCV (RBC) [Entitic vol] 85.0 fL 79.0 - 94.[address] [facility] Monocytes (Bld) [#/Vol] 0.66 10*3/uL 0.24 - 0.93 K/uL [facility] Monocytes/100 WBC (Bld) 13.9 % [facility] Neutrophils (Bld) [#/Vol] 2.16 10*3/uL 1.57 - 6.19 K/uL [facility] Nucleated RBC/100 WBC (Bld) [Ratio] 0.0 % [facility] Platelet mean volume (Bld) [Entitic vol] 9.3 fL 8.7 - 12.[address] [facility] Platelets (Bld) [#/Vol] 262 10*3/uL 146 - 337 K/uL [facility] RBC (Bld) [#/Vol] 4.46 10*6/uL [facility] Segmented neutrophils/100 WBC (Bld) 45.7 % [facility] [facility] WBC (Bld) [#/Vol] 4.74 10*3/uL 3.73 - 10. 10 K/uL [facility] CHEM 6 (LYTES, BUN CREA)on 0 08-28-2023 Anion gap [Moles/Vol] 13 mmol/L 7 - 17 mmol/L [facility] Chloride [Moles/Vol] 103 mmol/L 98 - 10 8 mmol/L [facility] CO2 [Moles/Vol] 22 mmol/L 21 - 31 mmol/L [facility] Creatinine [Mass/Vol] 1.62 mg/dL High 0.70 - 1.30 mg/dL [facility] eGFR, CKD-EPI, Male 52 Low - PINF [facility] Interpretation and review of laboratory results Abnormal [facility] Potassium [Moles/Vol] 4.3 mmol/L 3.5 - 5.0 mmol/L [facility] Sodium [Moles/Vol] 134 mmol/L Low 135 - 145 mmol/L [facility] Urea nitrogen [Mass/Vol] 22 mg/dL 7 - 25 mg/dL [facility] Urea nitrogen/Creatinine [Mass ratio] 14 mg/mg [facility] Portable XR Chest Viewson Radiology Study observation (narrative) [facility] Respiratory virus DNA+RNA NA A+probe Nom (Unsp spec)Ordered By: Dayami Harris on 08-28-2023 Adenovirus DNA ESTELITA+probe Nom (Unsp spec) Not detected Not Detected [facility] B. parapertussis DNA ESTELITA+probe Ql (Unsp spec) Not detected Not Detected [facility] B. pertussis DNA ESTELITA+probe Ql (Unsp spec) Not detected Not Detected [facility] C. pneumoniae DNA ESTELITA+probe Ql (Unsp spec) Not detected Not Detected [facility] FLUAV RNA ESTELITA+probe Ql (Unsp spec) Not detected Not Detected [facility] FLUBV RNA ESTELITA+probe Ql (Unsp spec) Not detected Not Detected [facility] HCoV 229E RNA ESTELITA+non-probe Ql (Nph) Not detected Not Detected [facility] HCoV HKU1 RNA ESTELITA+non-probe Ql (Nph) Not detected Not Detected [facility] HCoV NL63 RNA ESTELITA+non-probe Ql (Nph) Not detected Not Detected [facility] HCoV OC43 RNA ESTELITA+non-probe Ql (Nph) Not detected Not Detected [facility] hMPV A RNA ESTELITA+probe Ql (Unsp spec) Not detected Not Detected [facility] Interpretation and review of laboratory results Normal [facility] M. pneumoniae DNA ESTELITA+probe Ql (Unsp spec) Not detected Not Detected [facility] Parainfluenza virus 1 RNA ESTELITA+probe Ql (Unsp spec) Not detected Not Detected [facility] Parainfluenza virus 2 RNA ESTELITA+probe Ql (Unsp spec) Not detected Not Detected [facility] Parainfluenza virus 3 RNA ESTELITA+probe Ql (Unsp spec) Not detected Not Detected [facility] Parainfluenza virus 4 RNA ESTELITA+probe Ql (Unsp spec) Not detected Not Detected [facility] Rhinovirus+Enterovir us RNA ESTELITA+probe Ql (Unsp spec) Not detected Not Detected [facility] RSV RNA ESTELITA+probe Ql (Unsp spec) Not detected Not Detected [facility] SARS-CoV-2 (COVID-19) RNA ESTELITA+probe Ql (Unsp spec) Not detected NOT DETECTED [facility] ALBUMINon 04-28-2023 Albumin [Mass/Vol] 4.0 g/dL Normal 3.4-5.0 [facility] Comment on above: Performed By: #### C MP #### [facility] [address] [place] [address] Dr. Dwight Waters ALKALINE PHOSPHAon ALP [Catalytic activity/Vol] 106 U/L Normal 46-116 [facility] Comment on above: Performed By: #### F [id number] #### [facility] [address] [place] [address] Dr. Dwight Waters BILIRUBIN CONJUGATED (DIRECT )on 04-28-2023 BILI, CONJUGATED 0.3 mg/dL Critically high 0.0-0.2 [facility] Comment on above: Performed By: #### C MP #### [facility] [address] [place] [address] Dr. Dwight Waters BILIRUBIN TOTALon 04-28-2023 Bilirubin [Mass/Vol] 1.4 mg/dL Critically high 0.2-1.0 [facility] Comment on above: Performed By: #### C MP #### [facility] [address] [place] [address] Dr. Dwight Waters BUNon 04-28-2023 Urea nitrogen [Mass/Vol] 12.0 mg/dL Normal 7.0-18.0 [facility] Comment on above: Performed By: #### U RTPCR #### [facility] [address] [place] [address] Dr. Dwight Waters CALCIUMon 04-28-2023 Calcium [Mass/Vol] 9.3 mg/dL Normal 8.5-10.1 [facility] Comment on above: Performed By: #### U RTPCR #### [facility] [address] [place] [address] Dr. Dwight Waters CBC AUTO DIFFon 04-28-2023 BASO # 0.1 103/ul Normal 0.0-0.1 [facility] Comment on above: Performed By: #### C BC #### [facility] [address] [place] [address] Dr. Dwight Waters Basophils/100 WBC (Bld) 0.9 % Normal 0.2-2.0 [facility] Comment on above: Performed By: #### C BC #### [facility] [address] [place] [address] Dr. Dwight Waters EO # 0.2 103/ul Normal 0.0-0.7 [facility] Comment on above: Performed By: #### C BC #### [facility] [address] [place] [address] Dr. Dwight Waters Eosinophils/100 WBC (Bld) 3.8 % Normal 0.9-7.0 [facility] Comment on above: Performed By: #### C BC #### [facility] [address] [place] [address] Dr. Dwight Waters Erythrocyte distribution width (RBC) [Ratio] 12.5 % Normal 11.0-15.0 [facility] Comment on above: Performed By: #### C BC #### [facility] [address] [place] [address] Dr. Dwight Waters Hematocrit (Bld) [Volume fraction] 49.8 % Normal 42.0-54.0 [facility] Comment on above: Performed By: #### C BC #### [facility] [address] [place] [address] Dr. Dwight Waters Hemoglobin (Bld) [Mass/Vol] 16.4 g/dL Normal 14.0-18.0 [facility] Comment on above: Performed By: #### C BC #### [facility] [address] [place] [address] Dr. Dwight Waters IG # 0.01 10e3/ul Normal 0.00-0.03 [facility] Comment on above: Performed By: #### C BC #### [facility] [address] [place] [address] Dr. Dwight Waters IG % 0.2 % Normal 0.0-0.5 [facility] Comment on above: Performed By: #### C BC #### [facility] [address] [place] [address] Dr. Dwight Waters LYMPH # 2.1 103/ul Normal 1.2-3.8 [facility] Comment on above: Performed By: #### C BC #### [facility] [address] [place] [address] Dr. Dwight Waters Lymphocytes/100 WBC (Bld) 39.1 % Normal 20.5-60.0 [facility] Comment on above: Performed By: #### C BC #### [facility] [address] [place] [address] Dr. Dwight Waters MANUAL DIFF REQ NO Normal [facility] Comment on above: Performed By: #### C BC #### [facility] [address] [address] [address] Dwight Waters MCH (RBC) [Entitic mass] 28.6 pg Normal 25.9-34.0 [facility] Comment on above: Performed By: #### C BC #### [facility] [address] [place] [address] Dr. Dwight Waters MCHC (RBC) [Mass/Vol] 32.9 g/dL Normal 29.9-35.2 [facility] Comment on above: Performed By: #### C BC #### [facility] [address] [place] [address] Dr. Dwight Waters MCV (RBC) [Entitic vol] 86.9 fL Normal 80.0-94.0 [facility] Comment on above: Performed By: #### C BC #### [facility] [address] [place] [address] Dr. Dwight Waters MONO # 0.6 103/ul Normal 0.3-0.8 [facility] Comment on above: Performed By: #### C BC #### [facility] [address] [place] [address] Dr. Dwight Waters Monocytes/100 WBC (Bld) 10.6 % Normal 1.7-12.0 [facility] Comment on above: Performed By: #### C BC #### [facility] [address] [place] [address] Dr. Dwight Waters NEUT # 2.5 103/ul Normal 1.4-6.5 [facility] Comment on above: Performed By: #### C BC #### [facility] [address] [place] [address] Dr. Dwight Waters Neutrophils/100 WBC (Bld) 45.4 % Normal 43.0-75.0 [facility] Comment on above: Performed By: #### C BC #### [facility] [address] [place] [address] Dr. Dwight Waters Platelet mean volume (Bld) [Entitic vol] 9.3 fL Critically low 9.5-13.5 [facility] Comment on above: Performed By: #### C BC #### [facility] [address] [address] [address] Dwight Waters PLT 248 103/ul Normal 150-450 [facility] Comment on above: Performed By: #### C BC #### [facility] [address] [place] [address] Dr. Dwight Waters RBC 5.73 106/ul Normal 4.70-6.10 [facility] Comment on above: Performed By: #### C BC #### [facility] [address] [place] [address] Dr. Dwight Waters WBC 5.5 103/ul Normal 4.0-11.0 [facility] Comment on above: Performed By: #### C BC #### [facility] [address] [place] [address] Dr. Dwight Waters CHLORIDEon 04-28-2023 Chloride [Moles/Vol] 107 mmol/L Normal 98-107 [facility] Comment on above: Performed By: #### U RTPCR #### [facility] [address] [place] [address] Dr. Dwight Waters CO2on 04-28-2023 CO2 [Moles/Vol] 28.9 mmol/L Normal 21.0-32.0 [facility] Comment on above: Performed By: #### U RTPCR #### [facility] [address] [place] [address] Dr. Dwight Waters CREATININEon 04-28-2023 Creatinine [Mass/Vol] 1.17 mg/dL Normal 0.70-1.30 [facility] Comment on above: Performed By: #### U RTPCR #### [facility] [address] [place] [address] Dr. Dwight Waters EGFR-AF BHUTANESE >60 Normal >=60 [facility] Comment on above: Performed By: #### U RTPCR #### [facility] [address] [place] [address] Dr. Dwight Waters EGFR-NON AF BHUTANESE >60 Normal >=60 [facility] Comment on above: Performed By: #### U RTPCR #### [facility] [address] [place] [address] Dr. Dwight Waters GGTon 04-28-2023 Gamma glutamyl transferase [Catalytic activity/Vol] 27 U/L Normal 15-85 [facility] Comment on above: Performed By: #### U RTPCR #### [facility] [address] [place] [address] Dr. Dwight Waters GLUCOSE BLOODon 04-28-2023 Glucose [Mass/Vol] 110 mg/dL Critically high 74-106 [facility] Comment on above: Performed By: #### U RTPCR #### [facility] [address] [place] [address] Dr. Dwight Waters MAGNESIUMon 04-28-2023 Magnesium [Mass/Vol] 1.7 mg/dL Critically low 1.8-2.4 [facility] Comment on above: Performed By: #### U RTPCR #### [facility] [address] [place] [address] Dr. Dwight Waters NAon 04-28-2023 Sodium [Moles/Vol] 144 mmol/L Normal 136-145 [facility] Comment on above: Performed By: #### U RTPCR #### [facility] [address] [place] [address] Dr. Dwight Waters PHOSPHORUSon 04-28-2023 Phosphate [Mass/Vol] 3.2 mg/dL Normal 2.6-4.7 [facility] Comment on above: Performed By: #### U RTPCR #### [facility] [address] [place] [address] Dr. Dwight Waters POTASSIUMon 04-28-2023 Potassium [Moles/Vol] 4.0 mmol/L Normal 3.5-5.1 [facility] Comment on above: Performed By: #### U RTPCR #### [facility] [address] [place] [address] Dr. Dwight Waters SGOTon 04-28-2023 AST [Catalytic activity/Vol] 25 U/L Normal 15-37 [facility] Comment on above: Performed By: #### C MP #### [facility] [address] [place] [address] Dr. Dwight Waters SGPTon 04-28-2023 ALT [Catalytic activity/Vol] 40 U/L Normal 16-63 [facility] Comment on above: Performed By: #### C MP #### [facility] [address] [place] [address] Dr. Dwight Waters URINE T PROTEIN CREAT RATIOo n 04-28-2023 Protein (U) [Mass/Vol] 10.1 mg/dL Normal <=12.0 [facility] Comment on above: Performed By: #### U RTPCR #### [facility] [address] [place] [address] Dr. Dwight Waters UR PROT CREAT RAT 0.14 Normal [facility] Comment on above: Performed By: #### U RTPCR #### [facility] [address] [place] [address] Dr. Dwight Waters URINE CREAT 74.40 mg/dL Normal 20.00-300.00 [facility] Comment on above: Performed By: #### U RTPCR #### [facility] [address] [place] [address] Dr. Dwight Waters BK VIRUS PCR QUANTon 023 BKV DNA QUANT PCR PLASMA Negative Normal Negative [facility] Comment on above: Result Comment: No B K DNA detected. . The linear range of the assay is 22 - 100,000,000 IU/mL. Performed By: #### B KVIRUS #### [facility] [address] [place] [address] Dr. Dwight Waters Log10 BKV DNA Plasma Normal [facility] Comment on above: Performed By: #### B KVIRUS #### [facility] [address] [place] [address] Dr. Dwight Waters FK506 (TACROLIMUS) WHOLE BLO ODon 03-04-2023 Tacrolimus (FK506), Blood 5.9 ng/mL Normal 2.0-20.0 [facility] Comment on above: Result Comment: Trou gh (immediately following transplant) 15.0 . Trough (steady state, 2 weeks or more after transplant): 3.0 - 8.0 . Performed by LC-MS/MS technology. Performed By: #### C MP #### [facility] [address] [place] [address] Dr. Dwight Waters ALBUMINon 03-02-2023 Albumin [Mass/Vol] 3.9 g/dL Normal 3.4-5.0 [facility] Comment on above: Performed By: #### U RTPCR #### [facility] [address] [place] [address] Dr. Dwight Waters ALKALINE PHOSPHAon ALP [Catalytic activity/Vol] 105 U/L Normal 46-116 [facility] Comment on above: Performed By: #### U RTPCR #### [facility] [address] [place] [address] Dr. Dwight Waters BILIRUBIN CONJUGATED (DIRECT )on 03-02-2023 BILI, CONJUGATED 0.2 mg/dL Normal 0.0-0.2 [facility] Comment on above: Performed By: #### U RTPCR #### [facility] [address] [place] [address] Dr. Dwight Waters BILIRUBIN TOTALon 03-02-2023 Bilirubin [Mass/Vol] 0.9 mg/dL Normal 0.2-1.0 [facility] Comment on above: Performed By: #### U RTPCR #### [facility] [address] [place] [address] Dr. Dwight Waters CBC AUTO DIFFon 03-02-2023 BASO # 0.1 103/ul Normal 0.0-0.1 [facility] Comment on above: Performed By: #### C BC #### [facility] [address] [place] [address] Dr. Dwight Waters Basophils/100 WBC (Bld) 0.9 % Normal 0.2-2.0 [facility] Comment on above: Performed By: #### C BC #### [facility] [address] [place] [address] Dr. Dwight Waters EO # 0.2 103/ul Normal 0.0-0.7 [facility] Comment on above: Performed By: #### C BC #### [facility] [address] [place] [address] Dr. Dwight Waters Eosinophils/100 WBC (Bld) 3.5 % Normal 0.9-7.0 [facility] Comment on above: Performed By: #### C BC #### [facility] [address] [place] [address] Dr. Dwight Waters Erythrocyte distribution width (RBC) [Ratio] 12.7 % Normal 11.0-15.0 [facility] Comment on above: Performed By: #### C BC #### [facility] [address] [place] [address] Dr. Dwight Waters Hematocrit (Bld) [Volume fraction] 48.2 % Normal 42.0-54.0 [facility] Comment on above: Performed By: #### C BC #### [facility] [address] [place] [address] Dr. Dwight Waters Hemoglobin (Bld) [Mass/Vol] 15.9 g/dL Normal 14.0-18.0 [facility] Comment on above: Performed By: #### C BC #### [facility] [address] [place] [address] Dr. Dwight Waters IG # 0.01 10e3/ul Normal 0.00-0.03 [facility] Comment on above: Performed By: #### C BC #### [facility] [address] [place] [address] Dr. Dwight Waters IG % 0.2 % Normal 0.0-0.5 [facility] Comment on above: Performed By: #### C BC #### [facility] [address] [place] [address] Dr. Dwight Waters LYMPH # 2.1 103/ul Normal 1.2-3.8 [facility] Comment on above: Performed By: #### C BC #### [facility] [address] [place] [address] Dr. Dwight Waters Lymphocytes/100 WBC (Bld) 37.4 % Normal 20.5-60.0 [facility] Comment on above: Performed By: #### C BC #### [facility] [address] [place] [address] Dr. Dwight Waters MANUAL DIFF REQ NO Normal [facility] Comment on above: Performed By: #### C BC #### [facility] [address] [place] [address] Dr. Dwight Waters MCH (RBC) [Entitic mass] 28.3 pg Normal 25.9-34.0 [facility] Comment on above: Performed By: #### C BC #### [facility] [address] [place] [address] Dr. Dwight Waters MCHC (RBC) [Mass/Vol] 33.0 g/dL Normal 29.9-35.2 [facility] Comment on above: Performed By: #### C BC #### [facility] [address] [place] [address] Dr. Dwight Waters MCV (RBC) [Entitic vol] 85.8 fL Normal 80.0-94.0 [facility] Comment on above: Performed By: #### C BC #### [facility] [address] [place] [address] Dr. Dwight Waters MONO # 0.6 103/ul Normal 0.3-0.8 [facility] Comment on above: Performed By: #### C BC #### [facility] [address] [place] [address] Dr. Dwight Waters Monocytes/100 WBC (Bld) 10.2 % Normal 1.7-12.0 [facility] Comment on above: Performed By: #### C BC #### [facility] [address] [place] [address] Dr. Dwight Waters NEUT # 2.7 103/ul Normal 1.4-6.5 [facility] Comment on above: Performed By: #### C BC #### [facility] [address] [place] [address] Dr. Dwight Waters Neutrophils/100 WBC (Bld) 47.8 % Normal 43.0-75.0 [facility] Comment on above: Performed By: #### C BC #### [facility] [address] [place] [address] Dr. Dwight Waters Platelet mean volume (Bld) [Entitic vol] 9.3 fL Critically low 9.5-13.5 [facility] Comment on above: Performed By: #### C BC #### [facility] [address] [place] [address] Dr. Dwight Waters PLT 241 103/ul Normal 150-450 [facility] Comment on above: Performed By: #### C BC #### [facility] [address] [place] [address] Dr. Dwight Waters RBC 5.62 106/ul Normal 4.70-6.10 [facility] Comment on above: Performed By: #### C BC #### [facility] [address] [place] [address] Dr. Dwight Waters WBC 5.7 103/ul Normal 4.0-11.0 [facility] Comment on above: Performed By: #### C BC #### [facility] [address] [place] [address] Dr. Dwight Waters GGTon 03-02-2023 Gamma glutamyl transferase [Catalytic activity/Vol] 25 U/L Normal 15-85 [facility] Comment on above: Performed By: #### U RTPCR #### [facility] [address] [place] [address] Dr. Dwight Waters MAGNESIUMon 03-02-2023 Magnesium [Mass/Vol] 1.6 mg/dL Critically low 1.8-2.4 [facility] Comment on above: Performed By: #### U RTPCR #### [facility] [address] [place] [address] Dr. Dwight Waters PHOSPHORUSon 03-02-2023 Phosphate [Mass/Vol] 3.6 mg/dL Normal 2.6-4.7 [facility] Comment on above: Performed By: #### U RTPCR #### [facility] [address] [place] [address] Dr. Dwight Waters PROF CHEM 8 (BAS METB)on Anion gap [Moles/Vol] 9.4 mmol/L Normal [facility] Comment on above: Performed By: #### U RTPCR #### [facility] [address] [address] [address] Dwight Waters Calcium [Mass/Vol] 9.3 mg/dL Normal 8.5-10.1 [facility] Comment on above: Performed By: #### U RTPCR #### [facility] [address] [address] [address] Dwight Waters Chloride [Moles/Vol] 108 mmol/L Critically high 98-107 [facility] Comment on above: Performed By: #### U RTPCR #### [facility] [address] [place] [address] Dr. Dwight Waters CO2 [Moles/Vol] 27.2 mmol/L Normal 21.0-32.0 [facility] Comment on above: Performed By: #### U RTPCR #### [facility] [address] [place] [address] Dr. Dwight Waters Creatinine [Mass/Vol] 1.12 mg/dL Normal 0.70-1.30 [facility] Comment on above: Performed By: #### U RTPCR #### [facility] [facility] [address] [place] [address] Dr. Dwight Waters EGFR-AF BHUTANESE >60 Normal >=60 [facility] Comment on above: Performed By: #### U RTPCR #### [facility] [address] [place] [address] Dr. Dwight Waters EGFR-NON AF BHUTANESE >60 Normal >=60 [facility] Comment on above: Performed By: #### U RTPCR #### [facility] [address] [place] [address] Dr. Dwight Waters Glucose [Mass/Vol] 113 mg/dL Critically high 74-106 [facility] Comment on above: Performed By: #### U RTPCR #### [facility] [address] [place] [address] Dr. Dwight Waters Potassium [Moles/Vol] 3.6 mmol/L Normal 3.5-5.1 [facility] Comment on above: Performed By: #### U RTPCR #### [facility] [address] [address] [address] Dwight Waters Sodium [Moles/Vol] 141 mmol/L Normal 136-145 [facility] Comment on above: Performed By: #### U RTPCR #### [facility] [address] [place] [address] Dr. Dwight Waters Urea nitrogen [Mass/Vol] 14.0 mg/dL Normal 7.0-18.0 [facility] Comment on above: Performed By: #### U RTPCR #### [facility] [address] [place] [address] Dr. Dwight Waters Urea nitrogen/Creatinine [Mass ratio] 12.5 mg/mg Normal [facility] Comment on above: Performed By: #### U RTPCR #### [facility] [address] [place] [address] Dr. Dwight Waters SGOTon 03-02-2023 AST [Catalytic activity/Vol] 20 U/L Normal 15-37 [facility] Comment on above: Performed By: #### U RTPCR #### [facility] [address] [place] [address] Dr. Dwight Waters SGPTon 03-02-2023 ALT [Catalytic activity/Vol] 30 U/L Normal 16-63 [facility] Comment on above: Performed By: #### U RTPCR #### [facility] [address] [place] [address] Dr. Dwight Waters URINE T PROTEIN CREAT RATIOo n 03-02-2023 Protein (U) [Mass/Vol] 10.3 mg/dL Normal <=12.0 [facility] Comment on above: Performed By: #### U RTPCR #### [facility] [address] [place] [address] Dr. Dwight Waters UR PROT CREAT RAT 0.15 Normal [facility] Comment on above: Performed By: #### U RTPCR #### [facility] [address] [place] [address] Dr. Dwight Waters URINE CREAT 68.96 mg/dL Normal 20.00-300.00 [facility] Comment on above: Performed By: #### U RTPCR #### [facility] [address] [place] [address] Dr. Dwight Waters BK VIRUS PCR QUANTon 023 BKV DNA QUANT PCR PLASMA Negative Normal Negative [facility] Comment on above: Result Comment: No B K DNA detected. . The linear range of the assay is 22 - 100,000,000 IU/mL. Performed By: #### C MP #### [facility] [address] [place] [address] Dr. Dwight Waters Log10 BKV DNA Plasma Normal [facility] Comment on above: Performed By: #### C MP #### [facility] [address] [place] [address] Dr. Dwight Waters FK506 (TACROLIMUS) WHOLE BLO ODon 12-31-2022 Tacrolimus (FK506), Blood 5.6 ng/mL Normal 2.0-20.0 [facility] Comment on above: Result Comment: Trou gh (immediately following transplant) 15.0 . Trough (steady state, 2 weeks or more after transplant): 3.0 - 8.0 . Performed by LC-MS/MS technology. Performed By: #### C MP #### [facility] [address] [place] [address] Dr. Dwight Waters ALKALINE PHOSPHAon ALP [Catalytic activity/Vol] 96 U/L Normal 46-116 [facility] Comment on above: Performed By: #### C BC #### [facility] [address] [place] [address] Dr. Dwight Waters BILIRUBIN CONJUGATED (DIRECT )on 12-29-2022 BILI, CONJUGATED 0.3 mg/dL Critically high 0.0-0.2 [facility] Comment on above: Performed By: #### C BC #### [facility] [address] [place] [address] Dr. Dwight Waters BILIRUBIN TOTALon 12-29-2022 Bilirubin [Mass/Vol] 1.1 mg/dL Critically high 0.2-1.0 [facility] Comment on above: Performed By: #### C BC #### [facility] [address] [place] [address] Dr. Dwight Waters CBC AUTO DIFFon 12-29-2022 BASO # 0.1 103/ul Normal 0.0-0.1 [facility] Comment on above: Performed By: #### C MP #### [facility] [address] [place] [address] Dr. Dwight Waters Basophils/100 WBC (Bld) 0.8 % Normal 0.2-2.0 [facility] Comment on above: Performed By: #### C MP #### [facility] [address] [place] [address] Dr. Dwight Waters EO # 0.2 103/ul Normal 0.0-0.7 [facility] Comment on above: Performed By: #### C MP #### [facility] [address] [place] [address] Dr. Dwight Waters Eosinophils/100 WBC (Bld) 3.0 % Normal 0.9-7.0 [facility] Comment on above: Performed By: #### C MP #### [facility] [address] [place] [address] Dr. Dwight Waters Erythrocyte distribution width (RBC) [Ratio] 12.9 % Normal 11.0-15.0 [facility] Comment on above: Performed By: #### C MP #### [facility] [address] [place] [address] Dr. Dwight Waters Hematocrit (Bld) [Volume fraction] 46.9 % Normal 42.0-54.0 [facility] Comment on above: Performed By: #### C MP #### [facility] [address] [place] [address] Dr. Dwight Waters Hemoglobin (Bld) [Mass/Vol] 16.1 g/dL Normal 14.0-18.0 [facility] Comment on above: Performed By: #### C MP #### [facility] [address] [place] [address] Dr. Dwight Waters IG # 0.01 10e3/ul Normal 0.00-0.03 [facility] Comment on above: Performed By: #### C MP #### [facility] [address] [place] [address] Dr. Dwight Waters IG % 0.2 % Normal 0.0-0.5 [facility] Comment on above: Performed By: #### C MP #### [facility] [address] [place] [address] Dr. Dwight Waters LYMPH # 1.8 103/ul Normal 1.2-3.8 [facility] Comment on above: Performed By: #### C MP #### [facility] [address] [place] [address] Dr. Dwight Waters Lymphocytes/100 WBC (Bld) 27.9 % Normal 20.5-60.0 [facility] Comment on above: Performed By: #### C MP #### [facility] [address] [place] [address] Dr. Dwight Waters MANUAL DIFF REQ NO Normal [facility] Comment on above: Performed By: #### C MP #### [facility] [address] [place] [address] Dr. Dwight Waters MCH (RBC) [Entitic mass] 28.5 pg Normal 25.9-34.0 [facility] Comment on above: Performed By: #### C MP #### [facility] [address] [place] [address] Dr. Dwight Waters MCHC (RBC) [Mass/Vol] 34.3 g/dL Normal 29.9-35.2 [facility] Comment on above: Performed By: #### C MP #### [facility] [address] [place] [address] Dr. Dwight Waters MCV (RBC) [Entitic vol] 83.2 fL Normal 80.0-94.0 [facility] Comment on above: Performed By: #### C MP #### [facility] [address] [place] [address] Dr. Dwight Waters MONO # 0.5 103/ul Normal 0.3-0.8 [facility] Comment on above: Performed By: #### C MP #### [facility] [address] [place] [address] Dr. Dwight Waters Monocytes/100 WBC (Bld) 8.1 % Normal 1.7-12.0 [facility] Comment on above: Performed By: #### C MP #### [facility] [address] [place] [address] Dr. Dwight Waters NEUT # 3.8 103/ul Normal 1.4-6.5 [facility] Comment on above: Performed By: #### C MP #### [facility] [address] [place] [address] Dr. Dwight Waters Neutrophils/100 WBC (Bld) 60.0 % Normal 43.0-75.0 [facility] Comment on above: Performed By: #### C MP #### [facility] [address] [place] [address] Dr. Dwight Waters Platelet mean volume (Bld) [Entitic vol] 9.2 fL Critically low 9.5-13.5 [facility] Comment on above: Performed By: #### C MP #### [facility] [address] [place] [address] Dr. Dwight Waters PLT 225 103/ul Normal 150-450 [facility] Comment on above: Performed By: #### C MP #### [facility] [address] [place] [address] Dr. Dwight Waters RBC 5.64 106/ul Normal 4.70-6.10 [facility] Comment on above: Performed By: #### C MP #### [facility] [address] [place] [address] Dr. Dwight Waters WBC 6.3 103/ul Normal 4.0-11.0 [facility] Comment on above: Performed By: #### C MP #### [facility] [address] [place] [address] Dr. Dwight Waters GGTon 12-29-2022 Gamma glutamyl transferase [Catalytic activity/Vol] 24 U/L Normal 15-85 [facility] Comment on above: Performed By: #### C MP #### [facility] [address] [place] [address] Dr. Dwight Waters LIPID PROFILEon 01-30-2023 CHOL-HDL RATIO NORM SEE BELOW Normal [facility] Comment on above: Result Comment: 3.3 - 4.4 LOW RISK 4.4 - 7.1 AVERAGE RISK 7.1 - 11.0 MODERATE RISK >11.0 HIGH RISK Performed By: #### U RTPCR #### [facility] [address] [address] [address] Dwight Waters Cholesterol [Mass/Vol] 87 mg/dL Normal <=200 [facility] Comment on above: Performed By: #### U RTPCR #### [facility] [address] [address] [address] Dwight Waters Cholesterol in HDL [Mass/Vol] 44 mg/dL Normal 40-60 [facility] Comment on above: Performed By: #### U RTPCR #### [facility] [address] [address] [address] Dwight Waters Cholesterol in LDL [Mass/Vol] 33.0 mg/dL Normal [facility] Comment on above: Performed By: #### U RTPCR #### [facility] [address] [address] [address] Dwight Waters Cholesterol.total/Ch olesterol in HDL [Mass ratio] 2.0 {ratio} Normal [facility] Comment on above: Performed By: #### U RTPCR #### [facility] [address] [address] [address] Dwight Waters HDL NORMAL > or = 60 mg/dl - LO W CARDIOVASCULAR RISK <40 mg/dl - HIGH CARDIOVASCULAR RISK Normal [facility] Comment on above: Performed By: #### U RTPCR #### [facility] [address] [address] [address] Dwight Waters LDL CALC NORMAL SEE BELOW Normal [facility] Comment on above: Result Comment: <100 mg/dl OPTIMAL 100 - 129 mg/dl NEAR OR ABOVE OPTIMAL 130 - 159 mg/dl BORDERLINE HIGH 160 - 189 mg/dl HIGH >190 mg/dl VERY HIGH Performed By: #### U RTPCR #### [facility] [address] [address] [address] Dwight Waters Triglyceride [Mass/Vol] 50 mg/dL Normal <=150 [facility] Comment on above: Performed By: #### U RTPCR #### [facility] [address] [address] [address] Dwight Waters VLDL CALC 10.0 mg/dL Normal [facility] Comment on above: Performed By: #### U RTPCR #### [facility] [address] [place] [address] Dr. Dwight Waters MAGNESIUMon 12-29-2022 Magnesium [Mass/Vol] 1.6 mg/dL Critically low 1.8-2.4 [facility] Comment on above: Performed By: #### C BC #### [facility] [address] [place] [address] Dr. Dwight Waters RENAL FUNCTION PANELon 12-29 Albumin [Mass/Vol] 3.9 g/dL Normal 3.4-5.0 [facility] Comment on above: Performed By: #### C BC #### [facility] [address] [place] [address] Dr. Dwight Waters Calcium [Mass/Vol] 9.2 mg/dL Normal 8.5-10.1 [facility] Comment on above: Performed By: #### C BC #### [facility] [address] [place] [address] Dr. Dwight Waters Chloride [Moles/Vol] 109 mmol/L Critically high 98-107 [facility] Comment on above: Performed By: #### C BC #### [facility] [address] [place] [address] Dr. Dwight Waters CO2 [Moles/Vol] 27.0 mmol/L Normal 21.0-32.0 [facility] Comment on above: Performed By: #### C BC #### [facility] [address] [place] [address] Dr. Dwight Waters Creatinine [Mass/Vol] 1.02 mg/dL Normal 0.70-1.30 [facility] Comment on above: Performed By: #### C BC #### [facility] [address] [place] [address] Dr. Dwight Waters EGFR-AF BHUTANESE >60 Normal >=60 [facility] Comment on above: Performed By: #### C BC #### [facility] [address] [address] [address] Dwight Waters EGFR-NON AF BHUTANESE >60 Normal >=60 [facility] Comment on above: Performed By: #### C BC #### [facility] [address] [address] [address] Dwight Waters Glucose [Mass/Vol] 117 mg/dL Critically high 74-106 [facility] Comment on above: Performed By: #### C BC #### [facility] [address] [address] [address] Dwight Waters Phosphate [Mass/Vol] 3.2 mg/dL Normal 2.6-4.7 [facility] Comment on above: Performed By: #### C BC #### [facility] [address] [place] [address] Dr. Dwight Waters Potassium [Moles/Vol] 4.1 mmol/L Normal 3.5-5.1 [facility] Comment on above: Performed By: #### C BC #### [facility] [address] [place] [address] Dr. Dwight Waters Sodium [Moles/Vol] 144 mmol/L Normal 136-145 [facility] Comment on above: Performed By: #### C BC #### [facility] [address] [place] [address] Dr. Dwight Waters Urea nitrogen [Mass/Vol] 13.0 mg/dL Normal 7.0-18.0 [facility] Comment on above: Performed By: #### C BC #### [facility] [address] [place] [address] Dr. Dwight Albert 12-29-2022 AST [Catalytic activity/Vol] 21 U/L Normal 15-37 [facility] Comment on above: Performed By: #### C BC #### [facility] [address] [place] [address] Dr. Dwight OLVERAPTon 12-29-2022 ALT [Catalytic activity/Vol] 32 U/L Normal 16-63 [facility] Comment on above: Performed By: #### C BC #### [facility] [address] [address] [address] Dwight Waters URINE T PROTEIN CREAT RATIOo n 12-29-2022 Protein (U) [Mass/Vol] 14.3 mg/dL Critically high <=12.0 [facility] Comment on above: Performed By: #### U RTPCR #### [facility] [address] [place] [address] Dr. Dwight Waters UR PROT CREAT RAT 0.17 Normal [facility] Comment on above: Performed By: #### U RTPCR #### [facility] [address] [place] [address] Dr. Dwight Waters URINE CREAT 86.58 mg/dL Normal 20.00-300.00 [facility] Comment on above: Performed By: #### U RTPCR #### [facility] [address] [place] [address] Dr. Dwight Waters FK506 (TACROLIMUS) WHOLE BLO ODon 11-06-2022 Tacrolimus (FK506), Blood 4.9 ng/mL Normal 2.0-20.0 [facility] Comment on above: Result Comment: Trou gh (immediately following transplant) 15.0 . Trough (steady state, 2 weeks or more after transplant): 3.0 - 8.0 . Performed by LC-MS/MS technology. Performed By: #### U RTPCR #### [facility] [address] [place] [address] Dr. Dwight Waters ALKALINE PHOSPHAon ALP [Catalytic activity/Vol] 86 U/L Normal 46-116 [facility] Comment on above: Performed By: #### U RTPCR #### [facility] [address] [place] [address] Dr. Dwight Waters BILIRUBIN CONJUGATED (DIRECT )on 11-04-2022 BILI, CONJUGATED 0.2 mg/dL Normal 0.0-0.2 [facility] Comment on above: Performed By: #### U RTPCR #### [facility] [address] [place] [address] Dr. Dwight Waters BILIRUBIN TOTALon 11-04-2022 Bilirubin [Mass/Vol] 0.8 mg/dL Normal 0.2-1.0 [facility] Comment on above: Performed By: #### U RTPCR #### [facility] [address] [address] [address] Dwight Waters CBC AUTO DIFFon 11-04-2022 BASO # 0.1 103/ul Normal 0.0-0.1 [facility] Comment on above: Performed By: #### U RTPCR #### [facility] [address] [place] [address] Dr. Dwight Watesr Basophils/100 WBC (Bld) 0.9 % Normal 0.2-2.0 [facility] Comment on above: Performed By: #### U RTPCR #### [facility] [address] [place] [address] Dr. Dwight Waters EO # 0.2 103/ul Normal 0.0-0.7 [facility] Comment on above: Performed By: #### U RTPCR #### [facility] [address] [place] [address] Dr. Dwight Waters Eosinophils/100 WBC (Bld) 3.7 % Normal 0.9-7.0 [facility] Comment on above: Performed By: #### U RTPCR #### [facility] [address] [place] [address] Dr. Dwight Waters Erythrocyte distribution width (RBC) [Ratio] 12.9 % Normal 11.0-15.0 [facility] Comment on above: Performed By: #### U RTPCR #### [facility] [address] [place] [address] Dr. Dwight Waters Hematocrit (Bld) [Volume fraction] 48.3 % Normal 42.0-54.0 [facility] Comment on above: Performed By: #### U RTPCR #### [facility] [address] [place] [address] Dr. Dwight Waters Hemoglobin (Bld) [Mass/Vol] 15.6 g/dL Normal 14.0-18.0 [facility] Comment on above: Performed By: #### U RTPCR #### [facility] [address] [place] [address] Dr. Dwight Waters IG # 0.01 10e3/ul Normal 0.00-0.03 [facility] Comment on above: Performed By: #### U RTPCR #### [facility] [address] [place] [address] Dr. Dwight Waters IG % 0.2 % Normal 0.0-0.5 [facility] Comment on above: Performed By: #### U RTPCR #### [facility] [address] [place] [address] Dr. Dwight Waters LYMPH # 1.9 103/ul Normal 1.2-3.8 [facility] Comment on above: Performed By: #### U RTPCR #### [facility] [address] [place] [address] Dr. Dwight Waters Lymphocytes/100 WBC (Bld) 33.0 % Normal 20.5-60.0 [facility] Comment on above: Performed By: #### U RTPCR #### [facility] [address] [place] [address] Dr. Dwight Waters MANUAL DIFF REQ NO Normal [facility] Comment on above: Performed By: #### U RTPCR #### [facility] [address] [place] [address] Dr. Dwight Waters MCH (RBC) [Entitic mass] 27.6 pg Normal 25.9-34.0 [facility] Comment on above: Performed By: #### U RTPCR #### [facility] [address] [place] [address] Dr. Dwight Waters MCHC (RBC) [Mass/Vol] 32.3 g/dL Normal 29.9-35.2 [facility] Comment on above: Performed By: #### U RTPCR #### [facility] [address] [place] [address] Dr. Dwight Waters MCV (RBC) [Entitic vol] 85.5 fL Normal 80.0-94.0 [facility] Comment on above: Performed By: #### U RTPCR #### [facility] [address] [address] [address] Dwight Waters MONO # 0.5 103/ul Normal 0.3-0.8 [facility] Comment on above: Performed By: #### U RTPCR #### [facility] [address] [place] [address] Dr. Dwight Waters Monocytes/100 WBC (Bld) 8.8 % Normal 1.7-12.0 [facility] Comment on above: Performed By: #### U RTPCR #### [facility] [address] [place] [address] Dr. Dwight Waters NEUT # 3.1 103/ul Normal 1.4-6.5 [facility] Comment on above: Performed By: #### U RTPCR #### [facility] [address] [place] [address] Dr. Dwight Waters Neutrophils/100 WBC (Bld) 53.4 % Normal 43.0-75.0 [facility] Comment on above: Performed By: #### U RTPCR #### [facility] [address] [place] [address] Dr. Dwight Waters Platelet mean volume (Bld) [Entitic vol] 9.2 fL Critically low 9.5-13.5 [facility] Comment on above: Performed By: #### U RTPCR #### [facility] [address] [place] [address] Dr. Dwight Waters PLT 255 103/ul Normal 150-450 [facility] Comment on above: Performed By: #### U RTPCR #### [facility] [address] [place] [address] Dr. Dwight Waters RBC 5.65 106/ul Normal 4.70-6.10 [facility] Comment on above: Performed By: #### U RTPCR #### [facility] [address] [place] [address] Dr. Dwight Waters WBC 5.7 103/ul Normal 4.0-11.0 [facility] Comment on above: Performed By: #### U RTPCR #### [facility] [address] [place] [address] Dr. Dwight Waters GGTon 11-04-2022 Gamma glutamyl transferase [Catalytic activity/Vol] 22 U/L Normal 15-85 [facility] Comment on above: Performed By: #### U RTPCR #### [facility] [address] [place] [address] Dr. Dwight Waters MAGNESIUMon 11-04-2022 Magnesium [Mass/Vol] 1.8 mg/dL Normal 1.8-2.4 [facility] Comment on above: Performed By: #### U RTPCR #### [facility] [facility] [address] [place] [address] Dr. Dwight Waters RENAL FUNCTION PANELon 11-04 Albumin [Mass/Vol] 3.8 g/dL Normal 3.4-5.0 [facility] Comment on above: Performed By: #### U RTPCR #### [facility] [address] [place] [address] Dr. Dwight Waters Calcium [Mass/Vol] 9.3 mg/dL Normal 8.5-10.1 [facility] Comment on above: Performed By: #### U RTPCR #### [facility] [address] [place] [address] Dr. Dwight Waters Chloride [Moles/Vol] 107 mmol/L Normal 98-107 [facility] Comment on above: Performed By: #### U RTPCR #### [facility] [address] [place] [address] Dr. Dwight Waters CO2 [Moles/Vol] 29.2 mmol/L Normal 21.0-32.0 [facility] Comment on above: Performed By: #### U RTPCR #### [facility] [address] [place] [address] Dr. Dwight Waters Creatinine [Mass/Vol] 1.07 mg/dL Normal 0.70-1.30 [facility] Comment on above: Performed By: #### U RTPCR #### [facility] [address] [place] [address] Dr. Dwight Waters EGFR-AF BHUTANESE >60 Normal >=60 [facility] Comment on above: Performed By: #### U RTPCR #### [facility] [address] [address] [address] Dwight Waters EGFR-NON AF BHUTANESE >60 Normal >=60 [facility] Comment on above: Performed By: #### U RTPCR #### [facility] [address] [address] [address] Dwight Waters Glucose [Mass/Vol] 106 mg/dL Normal 74-106 [facility] Comment on above: Performed By: #### U RTPCR #### [facility] [address] [address] [address] Dwight Waters Phosphate [Mass/Vol] 2.8 mg/dL Normal 2.6-4.7 [facility] Comment on above: Performed By: #### U RTPCR #### [facility] [address] [place] [address] Dr. Dwight Waters Potassium [Moles/Vol] 4.1 mmol/L Normal 3.5-5.1 [facility] Comment on above: Performed By: #### U RTPCR #### [facility] [address] [place] [address] Dr. Dwight Waters Sodium [Moles/Vol] 143 mmol/L Normal 136-145 [facility] Comment on above: Performed By: #### U RTPCR #### [facility] [address] [place] [address] Dr. Dwight Waters Urea nitrogen [Mass/Vol] 12.0 mg/dL Normal 7.0-18.0 [facility] Comment on above: Performed By: #### U RTPCR #### [facility] [address] [place] [address] Dr. Dwight Waters SGOTon 11-04-2022 AST [Catalytic activity/Vol] 19 U/L Normal 15-37 [facility] Comment on above: Performed By: #### U RTPCR #### [facility] [address] [place] [address] Dr. Dwight Waters SGPTon 11-04-2022 ALT [Catalytic activity/Vol] 28 U/L Normal 16-63 [facility] Comment on above: Performed By: #### U RTPCR #### [facility] [address] [place] [address] Dr. Dwight Waters URINE T PROTEIN CREAT RATIOo n 11-04-2022 Protein (U) [Mass/Vol] 10.7 mg/dL Normal <=12.0 [facility] Comment on above: Performed By: #### U RTPCR #### [facility] [address] [place] [address] Dr. Dwight Waters UR PROT CREAT RAT 0.13 Normal [facility] Comment on above: Performed By: #### U RTPCR #### [facility] [address] [place] [address] Dr. Dwight Waters URINE CREAT 84.50 mg/dL Normal 20.00-300.00 [facility] Comment on above: Performed By: #### U RTPCR #### [facility] [address] [place] [address] Dr. Dwight Waters FK506 (TACROLIMUS) WHOLE BLO ODon 09-18-2022 Tacrolimus (FK506), Blood 4.6 ng/mL Normal 2.0-20.0 [facility] Comment on above: Result Comment: Trou gh (immediately following transplant) 15.0 . Trough (steady state, 2 weeks or more after transplant): 3.0 - 8.0 . Performed by LC-MS/MS technology. Performed By: #### U RTPCR #### [facility] [address] [place] [address] Dr. Dwight Waters BK VIRUS PCR QUANTon 022 BKV DNA QUANT PCR PLASMA Negative Normal Negative [facility] Comment on above: Result Comment: No B K DNA detected. . The linear range of the assay is 22 - 100,000,000 IU/mL. Performed By: #### U RTPCR #### [facility] [address] [place] [address] Dr. Dwight Waters Log10 BKV DNA Plasma Normal [facility] Comment on above: Performed By: #### U RTPCR #### [facility] [address] [place] [address] Dr. Dwight Waters ALKALINE PHOSPHAon 2 ALP [Catalytic activity/Vol] 92 U/L Normal 46-116 [facility] Comment on above: Performed By: #### U RTPCR #### [facility] [address] [place] [address] Dr. Dwight Waters BILIRUBIN CONJUGATED (DIRECT )on 09-15-2022 BILI, CONJUGATED 0.3 mg/dL Critically high 0.0-0.2 [facility] Comment on above: Performed By: #### U RTPCR #### [facility] [address] [place] [address] Dr. Dwight Waters BILIRUBIN TOTALon 09-15-2022 Bilirubin [Mass/Vol] 1.1 mg/dL Critically high 0.2-1.0 [facility] Comment on above: Performed By: #### U RTPCR #### [facility] [address] [place] [address] Dr. Dwight Waters CBC AUTO DIFFon 09-15-2022 BASO # 0.1 103/ul Normal 0.0-0.1 [facility] Comment on above: Performed By: #### C BC #### [facility] [address] [place] [address] Dr. Dwight Waters Basophils/100 WBC (Bld) 0.8 % Normal 0.2-2.0 [facility] Comment on above: Performed By: #### C BC #### [facility] [address] [place] [address] Dr. Dwight Waters EO # 0.2 103/ul Normal 0.0-0.7 [facility] Comment on above: Performed By: #### C BC #### [facility] [address] [place] [address] Dr. Dwight Waters Eosinophils/100 WBC (Bld) 3.5 % Normal 0.9-7.0 [facility] Comment on above: Performed By: #### C BC #### [facility] [address] [place] [address] Dr. Dwight Waters Erythrocyte distribution width (RBC) [Ratio] 13.0 % Normal 11.0-15.0 [facility] Comment on above: Performed By: #### C BC #### [facility] [address] [place] [address] Dr. Dwight Waters Hematocrit (Bld) [Volume fraction] 50.0 % Normal 42.0-54.0 [facility] Comment on above: Performed By: #### C BC #### [facility] [address] [place] [address] Dr. Dwight Waters Hemoglobin (Bld) [Mass/Vol] 16.0 g/dL Normal 14.0-18.0 [facility] Comment on above: Performed By: #### C BC #### [facility] [address] [place] [address] Dr. Dwight Waters IG # 0.02 10e3/ul Normal 0.00-0.03 [facility] Comment on above: Performed By: #### C BC #### [facility] [address] [place] [address] Dr. Dwight Waters IG % 0.3 % Normal 0.0-0.5 [facility] Comment on above: Performed By: #### C BC #### [facility] [address] [place] [address] Dr. Dwight Waters LYMPH # 1.8 103/ul Normal 1.2-3.8 [facility] Comment on above: Performed By: #### C BC #### [facility] [address] [place] [address] Dr. Dwight Waters Lymphocytes/100 WBC (Bld) 26.5 % Normal 20.5-60.0 [facility] Comment on above: Performed By: #### C BC #### [facility] [address] [place] [address] Dr. Dwight Waters MANUAL DIFF REQ NO Normal [facility] Comment on above: Performed By: #### C BC #### [facility] [address] [place] [address] Dr. Dwight Waters MCH (RBC) [Entitic mass] 28.1 pg Normal 25.9-34.0 [facility] Comment on above: Performed By: #### C BC #### [facility] [address] [place] [address] Dr. Dwight Waters MCHC (RBC) [Mass/Vol] 32.0 g/dL Normal 29.9-35.2 [facility] Comment on above: Performed By: #### C BC #### [facility] [address] [address] [address] Dwight Waters MCV (RBC) [Entitic vol] 87.9 fL Normal 80.0-94.0 [facility] Comment on above: Performed By: #### C BC #### [facility] [address] [place] [address] Dr. Dwight Waters MONO # 0.5 103/ul Normal 0.3-0.8 [facility] Comment on above: Performed By: #### C BC #### [facility] [address] [place] [address] Dr. Dwight Waters Monocytes/100 WBC (Bld) 8.1 % Normal 1.7-12.0 [facility] Comment on above: Performed By: #### C BC #### [facility] [address] [place] [address] Dr. Dwight Waters NEUT # 4.0 103/ul Normal 1.4-6.5 [facility] Comment on above: Performed By: #### C BC #### [facility] [address] [place] [address] Dr. Dwight Waters Neutrophils/100 WBC (Bld) 60.8 % Normal 43.0-75.0 [facility] Comment on above: Performed By: #### C BC #### [facility] [address] [address] [address] Dwight Waters Platelet mean volume (Bld) [Entitic vol] 9.4 fL Critically low 9.5-13.5 [facility] Comment on above: Performed By: #### C BC #### [facility] [address] [place] [address] Dr. Dwight Waters PLT 265 103/ul Normal 150-450 [facility] Comment on above: Performed By: #### C BC #### [facility] [address] [place] [address] Dr. Dwight Waters RBC 5.69 106/ul Normal 4.70-6.10 [facility] Comment on above: Performed By: #### C BC #### [facility] [address] [place] [address] Dr. Dwight Waters WBC 6.6 103/ul Normal 4.0-11.0 [facility] Comment on above: Performed By: #### C BC #### [facility] [address] [place] [address] Dr. Dwight Waters GGTon 09-15-2022 Gamma glutamyl transferase [Catalytic activity/Vol] 23 U/L Normal 15-85 [facility] Comment on above: Performed By: #### U RTPCR #### [facility] [address] [place] [address] Dr. Dwight Waters MAGNESIUMon 09-15-2022 Magnesium [Mass/Vol] 1.8 mg/dL Normal 1.8-2.4 [facility] Comment on above: Performed By: #### U RTPCR #### [facility] [address] [place] [address] Dr. Dwight Waters RENAL FUNCTION PANELon 09-15 Albumin [Mass/Vol] 4.1 g/dL Normal 3.4-5.0 [facility] Comment on above: Performed By: #### C BC #### [facility] [address] [place] [address] Dr. Dwight Waters Calcium [Mass/Vol] 9.3 mg/dL Normal 8.5-10.1 [facility] Comment on above: Performed By: #### C BC #### [facility] [address] [place] [address] Dr. Dwight Waters Chloride [Moles/Vol] 107 mmol/L Normal 98-107 [facility] Comment on above: Performed By: #### C BC #### [facility] [address] [place] [address] Dr. Dwight Waters CO2 [Moles/Vol] 25.6 mmol/L Normal 21.0-32.0 [facility] Comment on above: Performed By: #### C BC #### [facility] [address] [place] [address] Dr. Dwight Waters Creatinine [Mass/Vol] 1.01 mg/dL Normal 0.70-1.30 [facility] Comment on above: Performed By: #### C BC #### [facility] [address] [place] [address] Dr. Dwight Waters EGFR-AF BHUTANESE >60 Normal >=60 [facility] Comment on above: Performed By: #### C BC #### [facility] [address] [place] [address] Dr. Dwight Waters EGFR-NON AF BHUTANESE >60 Normal >=60 [facility] Comment on above: Performed By: #### C BC #### [facility] [address] [place] [address] Dr. Dwight Waters Glucose [Mass/Vol] 119 mg/dL Critically high 74-106 [facility] Comment on above: Performed By: #### C BC #### [facility] [address] [place] [address] Dr. Dwight Waters Phosphate [Mass/Vol] 2.8 mg/dL Normal 2.6-4.7 [facility] Comment on above: Performed By: #### C BC #### [facility] [address] [place] [address] Dr. Dwight Waters Potassium [Moles/Vol] 4.0 mmol/L Normal 3.5-5.1 [facility] Comment on above: Performed By: #### C BC #### [facility] [address] [place] [address] Dr. Dwight Waters Sodium [Moles/Vol] 141 mmol/L Normal 136-145 [facility] Comment on above: Performed By: #### C BC #### [facility] [address] [place] [address] Dr. wDight Waters Urea nitrogen [Mass/Vol] 15.0 mg/dL Normal 7.0-18.0 [facility] Comment on above: Performed By: #### C BC #### [facility] [address] [place] [address] Dr. Dwight Waters SGOTon 09-15-2022 AST [Catalytic activity/Vol] 18 U/L Normal 15-37 [facility] Comment on above: Performed By: #### U RTPCR #### [facility] [address] [place] [address] Dr. Dwight Waters SGPTon 09-15-2022 ALT [Catalytic activity/Vol] 32 U/L Normal 16-63 [facility] Comment on above: Performed By: #### C BC #### [facility] [address] [place] [address] Dr. Dwight Waters URINE T PROTEIN CREAT RATIOo n 09-15-2022 Protein (U) [Mass/Vol] 14.1 mg/dL Critically high <=12.0 [facility] Comment on above: Performed By: #### U RTPCR #### [facility] [address] [place] [address] Dr. Dwight Waters UR PROT CREAT RAT 0.14 Normal [facility] Comment on above: Performed By: #### U RTPCR #### [facility] [address] [place] [address] Dr. Dwight Waters URINE CREAT 98.89 mg/dL Normal 20.00-300.00 [facility] Comment on above: Performed By: #### U RTPCR #### [facility] [address] [place] [address] Dr. Dwight Waters US CAROTID ART BILon [...] MÓNICA JIMENEZ Date: 2022-08-28 13:20 Normal [facility] FK506 (TACROLIMUS) WHOLE BLO ODon 08-17-2022 Tacrolimus (FK506), Blood 9.9 ng/mL Normal 2.0-20.0 [facility] Comment on above: Result Comment: Trou gh (immediately following transplant) 15.0 . Trough (steady state, 2 weeks or more after transplant): 3.0 - 8.0 . Performed by LC-MS/MS technology. Performed By: #### F [id number] #### [facility] [address] [place] [address] Dr. Dwight Waters BK VIRUS PCR QUANTon 022 BKV DNA QUANT PCR PLASMA Negative Normal Negative [facility] Comment on above: Result Comment: No B K DNA detected. . The linear range of the assay is 22 - 100,000,000 IU/mL. Performed By: #### U RTPCR #### [facility] [address] [place] [address] Dr. Dwight Waters Log10 BKV DNA Plasma Normal [facility] Comment on above: Performed By: #### U RTPCR #### [facility] [address] [place] [address] Dr. Dwight Waters ALBUMINon 08-14-2022 Albumin [Mass/Vol] 4.2 g/dL Normal 3.4-5.0 [facility] Comment on above: Performed By: #### F [id number] #### [facility] [address] [place] [address] Dr. Dwight Waters ALKALINE PHOSPHAon ALP [Catalytic activity/Vol] 92 U/L Normal 46-116 [facility] Comment on above: Performed By: #### C BC #### [facility] [address] [place] [address] Dr. Dwight Waters BILIRUBIN CONJUGATED (DIRECT )on 08-14-2022 BILI, CONJUGATED 0.3 mg/dL Critically high 0.0-0.2 [facility] Comment on above: Performed By: #### F [id number] #### [facility] [address] [place] [address] Dr. Dwight Waters BILIRUBIN TOTALon 08-14-2022 Bilirubin [Mass/Vol] 1.5 mg/dL Critically high 0.2-1.0 [facility] Comment on above: Performed By: #### F [id number] #### [facility] [address] [place] [address] Dr. Dwight Waters BUNon 08-14-2022 Urea nitrogen [Mass/Vol] 11.0 mg/dL Normal 7.0-18.0 [facility] Comment on above: Performed By: #### C BC #### [facility] [address] [place] [address] Dr. Dwight Waters CALCIUMon 08-14-2022 Calcium [Mass/Vol] 9.4 mg/dL Normal 8.5-10.1 [facility] Comment on above: Performed By: #### F [id number] #### [facility] [address] [place] [address] Dr. Dwight Waters CBC AUTO DIFFon 08-14-2022 BASO # 0.0 103/ul Normal 0.0-0.1 [facility] Comment on above: Performed By: #### C MP #### [facility] [address] [place] [address] Dr. Dwight Waters Basophils/100 WBC (Bld) 0.5 % Normal 0.2-2.0 [facility] Comment on above: Performed By: #### C MP #### [facility] [address] [place] [address] Dr. Dwight Waters EO # 0.2 103/ul Normal 0.0-0.7 [facility] Comment on above: Performed By: #### C MP #### [facility] [address] [place] [address] Dr. Dwight Waters Eosinophils/100 WBC (Bld) 2.6 % Normal 0.9-7.0 [facility] Comment on above: Performed By: #### C MP #### [facility] [address] [place] [address] Dr. Dwight Waters Erythrocyte distribution width (RBC) [Ratio] 13.1 % Normal 11.0-15.0 [facility] Comment on above: Performed By: #### C MP #### [facility] [address] [place] [address] Dr. Dwight Waters Hematocrit (Bld) [Volume fraction] 47.0 % Normal 42.0-54.0 [facility] Comment on above: Performed By: #### C MP #### [facility] [address] [address] [address] Dwight Waters Hemoglobin (Bld) [Mass/Vol] 15.3 g/dL Normal 14.0-18.0 [facility] Comment on above: Performed By: #### C MP #### [facility] [address] [place] [address] Dr. Dwight Waters IG # 0.01 10e3/ul Normal 0.00-0.03 [facility] Comment on above: Performed By: #### C MP #### [facility] [address] [place] [address] Dr. Dwight Waters IG % 0.1 % Normal 0.0-0.5 [facility] Comment on above: Performed By: #### C MP #### [facility] [address] [place] [address] Dr. Dwight Waters LYMPH # 2.3 103/ul Normal 1.2-3.8 [facility] Comment on above: Performed By: #### C MP #### [facility] [address] [place] [address] Dr. Dwight Waters Lymphocytes/100 WBC (Bld) 29.8 % Normal 20.5-60.0 [facility] Comment on above: Performed By: #### C MP #### [facility] [address] [place] [address] Dr. Dwight Waters MANUAL DIFF REQ NO Normal [facility] Comment on above: Performed By: #### C MP #### [facility] [address] [place] [address] Dr. Dwight Waters MCH (RBC) [Entitic mass] 28.2 pg Normal 25.9-34.0 [facility] Comment on above: Performed By: #### C MP #### [facility] [address] [place] [address] Dr. Dwight Waters MCHC (RBC) [Mass/Vol] 32.6 g/dL Normal 29.9-35.2 [facility] Comment on above: Performed By: #### C MP #### [facility] [address] [address] [address] Dwight Waters MCV (RBC) [Entitic vol] 86.7 fL Normal 80.0-94.0 [facility] Comment on above: Performed By: #### C MP #### [facility] [address] [address] [address] Dwight Waters MONO # 0.7 103/ul Normal 0.3-0.8 [facility] Comment on above: Performed By: #### C MP #### [facility] [address] [address] [address] Dwight Waters Monocytes/100 WBC (Bld) 8.5 % Normal 1.7-12.0 [facility] Comment on above: Performed By: #### C MP #### [facility] [address] [place] [address] Dr. Dwight Waters NEUT # 4.5 103/ul Normal 1.4-6.5 [facility] Comment on above: Performed By: #### C MP #### [facility] [address] [place] [address] Dr. Dwight Waters Neutrophils/100 WBC (Bld) 58.5 % Normal 43.0-75.0 [facility] Comment on above: Performed By: #### C MP #### [facility] [address] [place] [address] Dr. Dwight Waters Platelet mean volume (Bld) [Entitic vol] 9.7 fL Normal 9.5-13.5 [facility] Comment on above: Performed By: #### C MP #### [facility] [address] [place] [address] Dr. Dwight Waters PLT 266 103/ul Normal 150-450 [facility] Comment on above: Performed By: #### C MP #### [facility] [address] [place] [address] Dr. Dwight Waters RBC 5.42 106/ul Normal 4.70-6.10 [facility] Comment on above: Performed By: #### C MP #### [facility] [address] [place] [address] Dr. Dwight Waters WBC 7.6 103/ul Normal 4.0-11.0 [facility] Comment on above: Performed By: #### C MP #### [facility] [address] [place] [address] Dr. Dwight Waters CHLORIDEon 08-14-2022 Chloride [Moles/Vol] 104 mmol/L Normal 98-107 [facility] Comment on above: Performed By: #### C BC #### [facility] [address] [place] [address] Dr. Dwight Waters CO2on 08-14-2022 CO2 [Moles/Vol] 27.9 mmol/L Normal 21.0-32.0 [facility] Comment on above: Performed By: #### C BC #### [facility] [address] [place] [address] Dr. Dwight Waters CREATININEon 08-14-2022 Creatinine [Mass/Vol] 1.08 mg/dL Normal 0.70-1.30 [facility] Comment on above: Performed By: #### C BC #### [facility] [address] [place] [address] Dr. Dwight Waters EGFR-AF BHUTANESE >60 Normal >=60 [facility] Comment on above: Performed By: #### C BC #### [facility] [address] [place] [address] Dr. Dwight Waters EGFR-NON AF BHUTANESE >60 Normal >=60 [facility] Comment on above: Performed By: #### C BC #### [facility] [address] [place] [address] Dr. Dwight Waters GGTon 08-14-2022 Gamma glutamyl transferase [Catalytic activity/Vol] 24 U/L Normal 15-85 [facility] Comment on above: Performed By: #### F [id number] #### [facility] [address] [place] [address] Dr. Dwight Waters GLUCOSE BLOODon 08-14-2022 Glucose [Mass/Vol] 111 mg/dL Critically high 74-106 [facility] Comment on above: Performed By: #### C BC #### [facility] [address] [place] [address] Dr. Dwight Waters MAGNESIUMon 08-14-2022 Magnesium [Mass/Vol] 1.4 mg/dL Critically low 1.8-2.4 [facility] Comment on above: Performed By: #### C BC #### [facility] [address] [place] [address] Dr. Dwight Waters NAon 08-14-2022 Sodium [Moles/Vol] 140 mmol/L Normal 136-145 [facility] Comment on above: Performed By: #### F [id number] #### [facility] [address] [place] [address] Dr. Dwight Waters PHOSPHORUSon 08-14-2022 Phosphate [Mass/Vol] 3.1 mg/dL Normal 2.6-4.7 [facility] Comment on above: Performed By: #### C BC #### [facility] [address] [place] [address] Dr. Dwight Waters POTASSIUMon 08-14-2022 Potassium [Moles/Vol] 3.5 mmol/L Normal 3.5-5.1 [facility] Comment on above: Performed By: #### C BC #### [facility] [address] [place] [address] Dr. Dwight Waters SGAlicia 08-14-2022 AST [Catalytic activity/Vol] 17 U/L Normal 15-37 [facility] Comment on above: Performed By: #### F [id number] #### [facility] [address] [place] [address] Dr. Dwight Waters SGPTon 08-14-2022 ALT [Catalytic activity/Vol] 22 U/L Normal 16-63 [facility] Comment on above: Performed By: #### F K506T #### [facility] [address] [place] [address] Dr. wDight Waters URINE T PROTEIN CREAT RATIOo n 08-14-2022 Protein (U) [Mass/Vol] 10.7 mg/dL Normal <=12.0 [facility] Comment on above: Performed By: #### F K506T #### [facility] [address] [place] [address] Dr. Dwight Waters UR PROT CREAT RAT 0.10 Normal [facility] Comment on above: Performed By: #### F K506T #### [facility] [address] [place], [place] [id number] Dr. Dwight Waters URINE CREAT 104.28 mg/dL Normal 20.00-300.00 [facility] Comment on above: Performed By: #### F [id number] #### [facility] [id number] [address] Dwight Waters NEPHROSTOMY TUBE REMOVALon 0 [...] Assisting physician present for entire procedure: yes [facility] Radiology Study observation (narrative) [facility] FK506 (TACROLIMUS) WHOLE BLO ODon 07-06-2022 Tacrolimus (FK506), Blood 9.5 ng/mL Normal 2.0-20.0 [facility] Comment on above: Result Comment: Trou gh (immediately following transplant) 15.0 . Trough (steady state, 2 weeks or more after transplant): 3.0 - 8.0 . Performed by LC-MS/MS technology. Performed By: #### C MP #### [facility] [address] [place] [address] Dr. Dwight Waters ALBUMINon 07-03-2022 Albumin [Mass/Vol] 3.7 g/dL Normal 3.4-5.0 [facility] Comment on above: Performed By: #### U RTPCR #### [facility] [address] [place] [address] Dr. Dwight Waters ALKALINE PHOSPHAon ALP [Catalytic activity/Vol] 76 U/L Normal 46-116 [facility] Comment on above: Performed By: #### U RTPCR #### [facility] [address] [place] [address] Dr. Dwight Waters BILIRUBIN CONJUGATED (DIRECT )on 07-03-2022 BILI, CONJUGATED 0.3 mg/dL Critically high 0.0-0.2 [facility] Comment on above: Performed By: #### C BC #### [facility] [address] [place] [address] Dr. Dwight Waters BILIRUBIN TOTALon 07-03-2022 Bilirubin [Mass/Vol] 1.4 mg/dL Critically high 0.2-1.0 [facility] Comment on above: Performed By: #### C BC #### [facility] [address] [place] [address] Dr. Dwight Waters BUNon 07-03-2022 Urea nitrogen [Mass/Vol] 15.0 mg/dL Normal 7.0-18.0 [facility] Comment on above: Performed By: #### C BC #### [facility] [address] [place] [address] Dr. Dwight Waters CALCIUMon 07-03-2022 Calcium [Mass/Vol] 9.4 mg/dL Normal 8.5-10.1 [facility] Comment on above: Performed By: #### U RTPCR #### [facility] [address] [place] [address] Dr. Dwight Waters CBC AUTO DIFFon 07-03-2022 BASO # 0.0 103/ul Normal 0.0-0.1 [facility] Comment on above: Performed By: #### U RTPCR #### [facility] [address] [place] [address] Dr. Dwight Waters Basophils/100 WBC (Bld) 0.6 % Normal 0.2-2.0 [facility] Comment on above: Performed By: #### U RTPCR #### [facility] [address] [place] [address] Dr. Dwight Waters EO # 0.2 103/ul Normal 0.0-0.7 [facility] Comment on above: Performed By: #### U RTPCR #### [facility] [address] [place] [address] Dr. Dwight Waters Eosinophils/100 WBC (Bld) 3.5 % Normal 0.9-7.0 [facility] Comment on above: Performed By: #### U RTPCR #### [facility] [address] [place] [address] Dr. Dwight Waters Erythrocyte distribution width (RBC) [Ratio] 12.9 % Normal 11.0-15.0 [facility] Comment on above: Performed By: #### U RTPCR #### [facility] [address] [place] [address] Dr. Dwight Waters Hematocrit (Bld) [Volume fraction] 44.2 % Normal 42.0-54.0 [facility] Comment on above: Performed By: #### U RTPCR #### [facility] [address] [place] [address] Dr. Dwight Waters Hemoglobin (Bld) [Mass/Vol] 14.6 g/dL Normal 14.0-18.0 [facility] Comment on above: Performed By: #### U RTPCR #### [facility] [address] [place] [address] Dr. Dwight Waters IG # 0.02 10e3/ul Normal 0.00-0.03 [facility] Comment on above: Performed By: #### U RTPCR #### [facility] [address] [place] [address] Dr. Dwight Waters IG % 0.3 % Normal 0.0-0.5 [facility] Comment on above: Performed By: #### U RTPCR #### [facility] [address] [place] [address] Dr. Dwight Waters LYMPH # 2.0 103/ul Normal 1.2-3.8 [facility] Comment on above: Performed By: #### U RTPCR #### [facility] [address] [place] [address] Dr. Dwight Waters Lymphocytes/100 WBC (Bld) 28.4 % Normal 20.5-60.0 [facility] Comment on above: Performed By: #### U RTPCR #### [facility] [address] [place] [address] Dr. Dwight Waters MANUAL DIFF REQ NO Normal [facility] Comment on above: Performed By: #### U RTPCR #### [facility] [address] [place] [address] Dr. Dwight Waters MCH (RBC) [Entitic mass] 28.6 pg Normal 25.9-34.0 [facility] Comment on above: Performed By: #### U RTPCR #### [facility] [address] [place] [address] Dr. Dwight Waters MCHC (RBC) [Mass/Vol] 33.0 g/dL Normal 29.9-35.2 [facility] Comment on above: Performed By: #### U RTPCR #### [facility] [address] [place] [address] Dr. Dwight Waters MCV (RBC) [Entitic vol] 86.7 fL Normal 80.0-94.0 [facility] Comment on above: Performed By: #### U RTPCR #### [facility] [address] [place] [address] Dr. Dwight Waters MONO # 0.6 103/ul Normal 0.3-0.8 [facility] Comment on above: Performed By: #### U RTPCR #### [facility] [address] [place] [address] Dr. Dwight Waters Monocytes/100 WBC (Bld) 9.1 % Normal 1.7-12.0 [facility] Comment on above: Performed By: #### U RTPCR #### [facility] [address] [place] [address] Dr. Dwight Waters NEUT # 4.0 103/ul Normal 1.4-6.5 [facility] Comment on above: Performed By: #### U RTPCR #### [facility] [address] [place] [address] Dr. Dwight Waters Neutrophils/100 WBC (Bld) 58.1 % Normal 43.0-75.0 [facility] Comment on above: Performed By: #### U RTPCR #### [facility] [address] [place] [address] Dr. Dwight Waters Platelet mean volume (Bld) [Entitic vol] 9.5 fL Normal 9.5-13.5 [facility] Comment on above: Performed By: #### U RTPCR #### [facility] [address] [place] [address] Dr. Dwight Waters PLT 292 103/ul Normal 150-450 [facility] Comment on above: Performed By: #### U RTPCR #### [facility] [address] [place] [address] Dr. Dwight Waters RBC 5.10 106/ul Normal 4.70-6.10 [facility] Comment on above: Performed By: #### U RTPCR #### [facility] [address] [place] [address] Dr. Dwight Waters WBC 6.9 103/ul Normal 4.0-11.0 [facility] Comment on above: Performed By: #### U RTPCR #### [facility] [address] [place] [address] Dr. Dwight Waters CHLORIDEon 07-03-2022 Chloride [Moles/Vol] 108 mmol/L Critically high 98-107 [facility] Comment on above: Performed By: #### C BC #### [facility] [address] [place] [address] Dr. Dwight Waters CO2on 07-03-2022 CO2 [Moles/Vol] 25.2 mmol/L Normal 21.0-32.0 [facility] Comment on above: Performed By: #### C BC #### [facility] [address] [place] [address] Dr. Dwight Waters CREATININEon 07-03-2022 Creatinine [Mass/Vol] 1.03 mg/dL Normal 0.70-1.30 [facility] Comment on above: Performed By: #### U RTPCR #### [facility] [address] [place] [address] Dr. Dwight Waters EGFR-AF BHUTANESE >60 Normal >=60 [facility] Comment on above: Performed By: #### U RTPCR #### [facility] [address] [place] [address] Dr. Dwight Waters EGFR-NON AF BHUTANESE >60 Normal >=60 [facility] Comment on above: Performed By: #### U RTPCR #### [facility] [address] [place] [address] Dr. Dwight Waters GGTon 07-03-2022 Gamma glutamyl transferase [Catalytic activity/Vol] 31 U/L Normal 15-85 [facility] Comment on above: Performed By: #### U RTPCR #### [facility] [address] [place] [address] Dr. Dwight Waters GLUCOSE BLOODon 07-03-2022 Glucose [Mass/Vol] 119 mg/dL Critically high 74-106 [facility] Comment on above: Performed By: #### U RTPCR #### [facility] [address] [place] [address] Dr. Dwight Waters MAGNESIUMon 07-03-2022 Magnesium [Mass/Vol] 1.4 mg/dL Critically low 1.8-2.4 [facility] Comment on above: Performed By: #### C BC #### [facility] [address] [place] [address] Dr. Dwight Waters NAon 07-03-2022 Sodium [Moles/Vol] 142 mmol/L Normal 136-145 [facility] Comment on above: Performed By: #### C MP #### [facility] [address] [place] [address] Dr. Dwight Waters PHOSPHORUSon 07-03-2022 Phosphate [Mass/Vol] 3.4 mg/dL Normal 2.6-4.7 [facility] Comment on above: Performed By: #### C BC #### [facility] [address] [place] [address] Dr. Dwight Waters POTASSIUMon 07-03-2022 Potassium [Moles/Vol] 4.1 mmol/L Normal 3.5-5.1 [facility] Comment on above: Performed By: #### C BC #### [facility] [address] [place] [address] Dr. Dwight Waters SGOTon 07-03-2022 AST [Catalytic activity/Vol] 14 U/L Critically low 15-37 [facility] Comment on above: Performed By: #### C BC #### [facility] [address] [place] [address] Dr. Dwight Waters SGPTon 07-03-2022 ALT [Catalytic activity/Vol] 25 U/L Normal 16-63 [facility] Comment on above: Performed By: #### C BC #### [facility] [address] [place] [address] Dr. Dwight Waters US KIDNEYSon 07-03-2022 US KIDNEYS Ultrasound kidneys, bilateral HISTORY: Transplant of kidney , pain in the right lower quadrant COMPARISON: None. TECHNIQUE: Transabdominal ultrasound imaging of both kidneys was performed. FINDINGS: The [place] kidneys are diffusely echogenic and atrophic with cortical thinning. The right kidney measures 8.3 x 3.5 x 4.07 m and the left measures 9.9 x 3.8 x 3.6 cm. No hydronephrosis of the [place] kidneys. There is a renal transplant in [...] stone involving the renal transplant. 2. Atrophic [place] kidneys. 3. Normal bladder. Electronically authenticated by: ARCELIA PIZARRO Date: 2022-07-03 17:22 Normal [facility] CT Abdomen and Pelvis WO geoff manriquezon 06-27-2022 IMPRESSION: 1. Both [place] kidneys are atrophic with improvement in right-sided [...] Adrenals: Adrenal glands are unremarkable. Kidneys: Both [place] kidneys are atrophic. Interval improvement in right [place] kidney hydronephrosis since May 15, 2022. Status [...] Adrenals: Adrenal glands are unremarkable. Kidneys: Both [place] kidneys are atrophic. Interval improvement in right [place] kidney hydronephrosis since May 15, 2022. Status [...] aggressive osseous lesions. IMPRESSION IMPRESSION: 1. Both [place] kidneys are atrophic with improvement in right-sided hydronephrosis since May 15, 2022. 2. 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 No hydronephrosis. No discrete perinephric collection. 3. Partially imaged postsurgical changes related to prior liver transplant. 4. The bladder is decompressed, limiting evaluation. [facility] Radiology Study observation (narrative) [facility] CT Abdomen and Pelvis WO con trastOrdered By: Gera Lu on 06-27-[address] [facility] Work Phone: CBC AUTO DIFFon 06-18-2022 BASO # 0.0 103/ul Normal 0.0-0.1 [facility] Comment on above: Performed By: #### U RTPCR #### [facility] [address] [address] [address] Dwight Waters Basophils/100 WBC (Bld) 0.5 % Normal 0.2-2.0 [facility] Comment on above: Performed By: #### U RTPCR #### [facility] [address] [address] [address] Dwight Waters EO # 0.2 103/ul Normal 0.0-0.7 [facility] Comment on above: Performed By: #### U RTPCR #### [facility] [address] [address] [address] Dwight Waters Eosinophils/100 WBC (Bld) 2.3 % Normal 0.9-7.0 [facility] Comment on above: Performed By: #### U RTPCR #### [facility] [address] [address] [address] Dwight Waters Erythrocyte distribution width (RBC) [Ratio] 12.9 % Normal 11.0-15.0 [facility] Comment on above: Performed By: #### U RTPCR #### [facility] [address] [address] [address] Dwight Waters Hematocrit (Bld) [Volume fraction] 41.2 % Critically low 42.0-54.0 [facility] Comment on above: Performed By: #### U RTPCR #### [facility] [address] [address] [address] Dwight Waters Hemoglobin (Bld) [Mass/Vol] 13.3 g/dL Critically low 14.0-18.0 [facility] Comment on above: Performed By: #### U RTPCR #### [facility] [address] [place] [address] Dr. Dwight Waters IG # 0.04 10e3/ul Critically high 0.00-0.03 [facility] Comment on above: Performed By: #### U RTPCR #### [facility] [address] [place] [address] Dr. Dwight Waters IG % 0.5 % Normal 0.0-0.5 [facility] Comment on above: Performed By: #### U RTPCR #### [facility] [address] [place] [address] Dr. Dwight Waetrs LYMPH # 2.0 103/ul Normal 1.2-3.8 [facility] Comment on above: Performed By: #### U RTPCR #### [facility] [address] [place] [address] Dr. Dwight Waters Lymphocytes/100 WBC (Bld) 22.9 % Normal 20.5-60.0 [facility] Comment on above: Performed By: #### U RTPCR #### [facility] [address] [place] [address] Dr. Dwight Waters MANUAL DIFF REQ NO Normal [facility] Comment on above: Performed By: #### U RTPCR #### [facility] [address] [place] [address] Dr. Dwight Waters MCH (RBC) [Entitic mass] 28.7 pg Normal 25.9-34.0 [facility] Comment on above: Performed By: #### U RTPCR #### [facility] [address] [place] [address] Dr. Dwight Waters MCHC (RBC) [Mass/Vol] 32.3 g/dL Normal 29.9-35.2 [facility] Comment on above: Performed By: #### U RTPCR #### [facility] [address] [address] [address] Dwight Waters MCV (RBC) [Entitic vol] 88.8 fL Normal 80.0-94.0 [facility] Comment on above: Performed By: #### U RTPCR #### [facility] [address] [address] [address] Dwight Waters MONO # 0.8 103/ul Normal 0.3-0.8 [facility] Comment on above: Performed By: #### U RTPCR #### [facility] [address] [place] [address] Dr. Dwight Waters Monocytes/100 WBC (Bld) 9.7 % Normal 1.7-12.0 [facility] Comment on above: Performed By: #### U RTPCR #### [facility] [address] [place] [address] Dr. Dwight Waters NEUT # 5.6 103/ul Normal 1.4-6.5 [facility] Comment on above: Performed By: #### U RTPCR #### [facility] [address] [place] [address] Dr. Dwight Waters Neutrophils/100 WBC (Bld) 64.1 % Normal 43.0-75.0 [facility] Comment on above: Performed By: #### U RTPCR #### [facility] [address] [place] [address] Dr. Dwight Waters Platelet mean volume (Bld) [Entitic vol] 10.0 fL Normal 9.5-13.5 [facility] Comment on above: Performed By: #### U RTPCR #### [facility] [address] [place] [address] Dr. Dwight Waters PLT 270 103/ul Normal 150-450 [facility] Comment on above: Performed By: #### U RTPCR #### [facility] [address] [place] [address] Dr. Dwight Waters RBC 4.64 106/ul Critically low 4.70-6.10 [facility] Comment on above: Performed By: #### U RTPCR #### [facility] [address] [place] [address] Dr. Dwight Waters WBC 8.7 103/ul Normal 4.0-11.0 [facility] Comment on above: Performed By: #### U RTPCR #### [facility] [address] [place] [address] Dr. Dwight Waters CULTURE URINEon 06-18-2022 CULTURE URINE Culture Observations : NO GROWTH. Normal [facility] Comment on above: Performed By: #### U RTPCR #### [facility] [address] [place] [address] Dr. Dwight Waters [facility] SARS-CoV-2 (COVID-19) RNA ESTELITA+probe Ql (Unsp spec) Not detected Normal NOT DETECTED [facility] Comment on above: Result Comment: When [...] for this test is supported by the [place] of Health and Human Service's declaration that [...] Performed By: #### C BC #### [facility] [address] [place] [address] Dr. Dwight Waters ER URINE PROFILEon 2 Bilirubin Ql (U) Negative Normal NEGATIVE [facility] Comment on above: Performed By: #### U RTPCR #### [facility] [address] [place] [address] Dr. Dwight Waters Clarity (U) CLEAR Normal CLEAR [facility] Comment on above: Performed By: #### U RTPCR #### [facility] [address] [place] [address] Dr. Dwight Waters Color (U) YELLOW Normal YELLOW [facility] Comment on above: Performed By: #### U RTPCR #### [facility] [address] [place] [address] Dr. Dwight Waters ERUAHD A micrscopic examina tion will be performed if indicated. Normal [facility] Comment on above: Performed By: #### U RTPCR #### [facility] [address] [place] [address] Dr. Dwight Waters Glucose Ql (U) Negative Normal NEGATIVE [facility] Comment on above: Performed By: #### U RTPCR #### [facility] [address] [place] [address] Dr. Dwight Waters Hemoglobin Ql (U) LARGE Abnormal NEGATIVE [facility] Comment on above: Performed By: #### U RTPCR #### [facility] [address] [place] [address] Dr. Dwight Waters Ketones Ql (U) Negative Normal NEGATIVE [facility] Comment on above: Performed By: #### U RTPCR #### [facility] [address] [place] [address] Dr. Dwight Waters LEUKOCYTES TRACE Abnormal NEGATIVE [facility] Comment on above: Performed By: #### U RTPCR #### [facility] [address] [place] [address] Dr. Dwight Waters Nitrite Ql (U) Negative Normal NEGATIVE [facility] Comment on above: Performed By: #### U RTPCR #### [facility] [address] [place] [address] Dr. Dwight Waters pH (U) 6.0 [pH] Normal 5-9 [facility] Comment on above: Performed By: #### U RTPCR #### [facility] [address] [place] [address] Dr. Dwight Waters Protein (U) [Mass/Vol] 30 mg/dL Abnormal NEGATIVE/ TRACE [facility] Comment on above: Performed By: #### U RTPCR #### [facility] [address] [place] [address] Dr. Dwight Waters SPEC GRAVITY >=1.030 Abnormal 1.005-<=1.02 5 [facility] Comment on above: Performed By: #### U RTPCR #### [facility] [address] [place] [address] Dr. Dwight Waters UR MICRO IND INDICATED Normal [facility] Comment on above: Performed By: #### U RTPCR #### [facility] [address] [place] [address] Dr. Dwight Waters Urobilinogen Qn (U) 0.2 {Alyssa'U}/dL Normal 0.2 - 1. 0 [facility] Comment on above: Performed By: #### U RTPCR #### [facility] [address] [place] [address] Dr. Dwight Waters PROF 14(COMP METB)on 022 Albumin [Mass/Vol] 3.7 g/dL Normal 3.4-5.0 [facility] Comment on above: Performed By: #### C MP #### [facility] [address] [place] [address] Dr. Dwight Waters Albumin/Globulin [Mass ratio] 0.9 {ratio} Normal [facility] Comment on above: Performed By: #### C MP #### [facility] [address] [place] [address] Dr. Dwight Waters ALP [Catalytic activity/Vol] 80 U/L Normal 46-116 [facility] Comment on above: Performed By: #### C MP #### [facility] [address] [place] [address] Dr. Dwight Waters ALT [Catalytic activity/Vol] 24 U/L Normal 16-63 [facility] Comment on above: Performed By: #### C MP #### [facility] [address] [place] [address] Dr. Dwight Waters Anion gap [Moles/Vol] 12.9 mmol/L Normal [facility] Comment on above: Performed By: #### C MP #### [facility] [address] [address] [address] Dwight Waters AST [Catalytic activity/Vol] 17 U/L Normal 15-37 [facility] Comment on above: Performed By: #### C MP #### [facility] [address] [address] [address] Dwight Waters Bilirubin [Mass/Vol] 0.8 mg/dL Normal 0.2-1.0 [facility] Comment on above: Performed By: #### C MP #### [facility] [address] [address] [address] Dwight Waters Calcium [Mass/Vol] 9.4 mg/dL Normal 8.5-10.1 [facility] Comment on above: Performed By: #### C MP #### [facility] [address] [address] [address] Dwight Waters Chloride [Moles/Vol] 106 mmol/L Normal 98-107 [facility] Comment on above: Performed By: #### C MP #### [facility] [address] [address] [address] Dwight Waters CO2 [Moles/Vol] 25.3 mmol/L Normal 21.0-32.0 [facility] Comment on above: Performed By: #### C MP #### [facility] [address] [address] [address] Dwight Waters Creatinine [Mass/Vol] 1.29 mg/dL Normal 0.70-1.30 [facility] Comment on above: Performed By: #### C MP #### [facility] [address] [address] [address] Dwight Waters EGFR-AF BHUTANESE >60 Normal >=60 [facility] Comment on above: Performed By: #### C MP #### [facility] [address] [address] [address] Dwight Waters EGFR-NON AF BHUTANESE 59 mL/min/1.73m2 Critically low >=60 [facility] Comment on above: Performed By: #### C MP #### [facility] [address] [address] [address] Dwight Waters Globulin (S) [Mass/Vol] 4.2 g/dL Normal [facility] Comment on above: Performed By: #### C MP #### [facility] [address] [place] [address] Dr. Dwight Waters Glucose [Mass/Vol] 106 mg/dL Normal 74-106 [facility] Comment on above: Performed By: #### C MP #### [facility] [address] [address] [address] Dwight Waters Potassium [Moles/Vol] 4.2 mmol/L Normal 3.5-5.1 [facility] Comment on above: Performed By: #### C MP #### [facility] [address] [place] [address] Dr. Dwight Waters Protein [Mass/Vol] 7.9 g/dL Normal 6.4-8.2 [facility] Comment on above: Performed By: #### C MP #### [facility] [address] [place] [address] Dr. Dwight Waters Sodium [Moles/Vol] 140 mmol/L Normal 136-145 [facility] Comment on above: Performed By: #### C MP #### [facility] [address] [place] [address] Dr. Dwight Waters Urea nitrogen [Mass/Vol] 22.0 mg/dL Critically high 7.0-18.0 [facility] Comment on above: Performed By: #### C MP #### [facility] [address] [place] [address] Dr. Dwight Waters Urea nitrogen/Creatinine [Mass ratio] 17.1 mg/mg Normal [facility] Comment on above: Performed By: #### C MP #### [facility] [address] [place] [address] Dr. Dwight Waters URINE MICROSCOPIC ONLYon BACTERIA TRACE Abnormal NONE SEEN [facility] Comment on above: Performed By: #### U RTPCR #### [facility] [address] [place] [address] Dr. Dwight Waters Bacteria identified Cx Nom (U) INDICATED Normal [facility] Comment on above: Performed By: #### U RTPCR #### [facility] [address] [place] [address] Dr. Dwight Waters CAST NONE SEEN Normal NONE SEEN [facility] Comment on above: Performed By: #### U RTPCR #### [facility] [address] [place] [address] Dr. Dwight Waters Crystals LM Nom (Urine sed) NONE SEEN Normal NONE SEEN [facility] Comment on above: Performed By: #### U RTPCR #### [facility] [address] [place] [address] Dr. Dwight Waters Epithelial cells LM Ql (Urine sed) NONE SEEN Normal NONE SEEN /RARE [facility] Comment on above: Performed By: #### U RTPCR #### [facility] [address] [place] [address] Dr. Dwight Waters MUCOUS NONE SEEN Normal NONE SEEN [facility] Comment on above: Performed By: #### U RTPCR #### [facility] [address] [place] [address] Dr. Dwight Waters RBC 5-10 Abnormal 0-2 [facility] Comment on above: Performed By: #### U RTPCR #### [facility] [address] [place] [address] Dr. Dwight Waters WBC 10-20 Abnormal NONE SEEN [facility] Comment on above: Performed By: #### U RTPCR #### [facility] [address] [place] [address] Dr. Dwight Waters ALLOSCREEN RECIPIENT (POST T X PRA)on 06-13-2022 AB SPECIFICITY CLASS COMMENT Antibody Specificity testing performed by [employer]. cPRA calculation based on identification of HLA antibody specificities at MFI >2000 and/or presence of CREG antibodies. [facility] Comment on above: Some of the reagents used for testing in the Clinical Histocompatibility Laboratory have yet to be approved by the FDA. Our certification by CLIA to perform high complexity tests allows us to use these reagents in the context of a stringent QC program, and obviates the need for FDA approval.Testing performed by the [facility] Clinical Histocompatibility Laboratory. [facility] number: [id number]. [facility] number: [id number], Director: Carlito Merchant, PhD, D([facility]). ANTIBODY SPECIFICITY INTERPRETATION Detected [facility] CLASS I SPECIFICITIES Not detected [facility] CLASS II SPECIFICITIES Not detected [facility] HLA Ab (S) 0 % 0 [facility] EXTRA MICROon 06-13-[address] [facility] URINE CULTUREOrdered By: Jah Upton on 06-13-2022 Bacteria identified Cx Nom (Unsp spec) Growth [facility] Bacteria identified Cx Nom (Unsp spec) 10,000-50,000 CFU/mL Mixed skin shimon [facility] Comment on above: Multiple bacterial m orphotypes present. Suggest appropriate recollection if clinically indicated. [facility] CBC,PLATELETSon 06-12-2022 Erythrocyte distribution width (RBC) [Ratio] 13.0 % 10.9 - 14.3 % [facility] Hematocrit (Bld) [Volume fraction] 43.2 % 39.6 - 48.8 % [facility] Hemoglobin (Bld) [Mass/Vol] 13.9 g/dL 13.4 - 16.8 g/dL [facility] Interpretation and review of laboratory results Normal [facility] MCH (RBC) [Entitic mass] 28.7 pg 26.1 - 33.[address] [facility] MCHC (RBC) [Mass/Vol] 32.2 g/dL 31.9 - 36.5 g/dL [facility] MCV (RBC) [Entitic vol] 89.1 fL 79.0 - 94.[address] [facility] Platelet mean volume (Bld) [Entitic vol] 10.5 fL 8.7 - 12.[address] [facility] Platelets (Bld) [#/Vol] 269 10*3/uL 146 - 337 K/uL [facility] RBC (Bld) [#/Vol] 4.85 10*6/uL [facility] WBC (Bld) [#/Vol] 7.68 10*3/uL 3.73 - 10. 10 K/uL [facility] CHEM 7 (LYTES,BUN,CREA,GLUC) on 06-12-2022 Anion gap [Moles/Vol] 14 mmol/L 7 - 17 mmol/L [facility] Chloride [Moles/Vol] 106 mmol/L 98 - 10 8 mmol/L [facility] CO2 [Moles/Vol] 25 mmol/L 21 - 31 mmol/L [facility] Creatinine [Mass/Vol] 1.26 mg/dL 0.70 - 1.30 mg/dL [facility] GFR/1.73 sq M.predicted CKD-EPI (S/P/Bld) [Vol rate/Area] 69 >=60 mL/min/1.73m [address] [facility] Comment on above: Reported eGFR is bas ed on the CKD-EPI 2020 equation using creatinine, age, and sex. Glucose [Mass/Vol] 83 mg/dL 70 - 99 mg/dL [facility] Osmolality Calc [Osmolality] [address] [facility] Potassium [Moles/Vol] 3.8 mmol/L 3.5 - 5.0 mmol/L [facility] Sodium [Moles/Vol] 141 mmol/L 135 - 145 mmol/L [facility] Urea nitrogen [Mass/Vol] 18 mg/dL 7 - 25 mg/dL [facility] Urea nitrogen/Creatinine [Mass ratio] 14 mg/mg [facility] GGTon 06-12-2022 Gamma glutamyl transferase [Catalytic activity/Vol] 20 U/L 8 - 64 U/L [facility] HEMOGLOBIN [id number] By: Link Roche on 06-12-2022 Average glucose Estimated from glycated hemoglobin (Bld) [Mass/Vol] 126 mg/dL [facility] HbA1c (Bld) [Mass fraction] 6.0 % High 4.7 - 5.6 % [facility] Interpretation and review of laboratory results Abnormal [facility] HEPATIC FUNCTION PANELon Albumin [Mass/Vol] 4.3 g/dL 3.5 - 5.0 g/dL [facility] ALP [Catalytic activity/Vol] 78 U/L 32 - 126 U/L [facility] ALT [Catalytic activity/Vol] 12 U/L 10 - 52 U/L [facility] AST [Catalytic activity/Vol] 16 U/L 10 - 39 U/L [facility] Bilirubin [Mass/Vol] 1.0 mg/dL <1.[address] [facility] Bilirubin.direct [Mass/Vol] 0.2 mg/dL <0.[address] [facility] Protein [Mass/Vol] 7.5 g/dL 6.4 - 8.3 g/dL [facility] No Panel Informationon 06-12 Interpretation and review of laboratory results Normal [facility] PTH INTACTOrdered By: Marli Lizarraga on 06-12-2022 Interpretation and review of laboratory results Abnormal [facility] Parathyrin.intact [Mass/Vol] 79.7 pg/mL High 14.0 - 72.0 pg/mL [facility] URINALYSIS REFLEX TO CULTURE PERFORMABLEon 06-12-2022 Appearance (U) Clear Clear [facility] Bacteria LM Ql (Urine sed) ABSENT ABSENT [facility] Color (U) Yellow Yellow [facility] Epithelial cells.squamous LM Ql (Urine sed) 1/hpf = 1+ 1/hpf = 1+, 2-5/hpf = 2+, 0/hpf = 0+, ABSENT [facility] Glucose Test strip (U) [Mass/Vol] Negative Negative [facility] Interpretation and review of laboratory results Abnormal [facility] Ketones (U) [Mass/Vol] Trace Abnormal Negative [facility] Leukocyte esterase Test strip Ql (U) Small Abnormal Negative [facility] Nitrite Ql (U) Negative Negative [facility] pH (U) 5.5 [pH] 5.0 - 7.0 [facility] Protein (U) [Mass/Vol] 30 mg/dL Abnormal Negative [facility] RBC (U) [#/Vol] Trace Abnormal Negative [facility] RBC LM.HPF (Urine sed) [#/Area] 0-2 0 - 2 /HPF [facility] Specific gravity (U) [Rel density] 1.[address] [facility] Urobilinogen (U) [Mass/Vol] 0.2 E.U./dL 0.2 E.U/dL, 1.0 E.U/dL [facility] WBC LM.HPF (Urine sed) [#/Area] 10-20 Abnormal 0 - 5 /HPF [facility] URINE PROTEIN/CREA RATIO, RA NDOMon 06-12-2022 Creatinine (24H U) [Mass/Vol] 231.68 mg/dL [facility] Protein Unsp time (U) [Mass/Vol] 49 mg/dL [facility] Protein/Creatinine (U) [Mass ratio] 0.211 mg/g [facility] FK506 (TACROLIMUS) WHOLE BLO ODon 06-09-2022 Tacrolimus (FK506), Blood 9.8 ng/mL Normal 2.0-20.0 [facility] Comment on above: Result Comment: Trou gh (immediately following transplant) 15.0 . Trough (steady state, 2 weeks or more after transplant): 3.0 - 8.0 . Performed by LC-MS/MS technology. Performed By: #### U RTPCR #### [facility] [address] [place] [address] Dr. Dwight Waters ALBUMINon 06-06-2022 Albumin [Mass/Vol] 3.8 g/dL Normal 3.4-5.0 [facility] Comment on above: Performed By: #### C MP #### [facility] [address] [place] [address] Dr. Dwight Waters ALKALINE PHOSPHAon ALP [Catalytic activity/Vol] 82 U/L Normal 46-116 [facility] Comment on above: Performed By: #### C MP #### [facility] [address] [place] [address] Dr. Dwight Waters BILIRUBIN CONJUGATED (DIRECT )on 06-06-2022 BILI, CONJUGATED 0.2 mg/dL Normal 0.0-0.2 [facility] Comment on above: Performed By: #### C BC #### [facility] [address] [place] [address] Dr. Dwight Waters BILIRUBIN TOTALon 06-06-2022 Bilirubin [Mass/Vol] 1.0 mg/dL Normal 0.2-1.0 [facility] Comment on above: Performed By: #### C BC #### [facility] [address] [place] [address] Dr. Dwight Waters BUNon 06-06-2022 Urea nitrogen [Mass/Vol] 18.0 mg/dL Normal 7.0-18.0 [facility] Comment on above: Performed By: #### C BC #### [facility] [address] [place] [address] Dr. Dwight Waters CALCIUMon 06-06-2022 Calcium [Mass/Vol] 9.4 mg/dL Normal 8.5-10.1 [facility] Comment on above: Performed By: #### C MP #### [facility] [address] [place] [address] Dr. Dwight Waters CBC AUTO DIFFon 06-06-2022 BASO # 0.1 103/ul Normal 0.0-0.1 [facility] Comment on above: Performed By: #### U RTPCR #### [facility] [address] [place] [address] Dr. Dwight Waters Basophils/100 WBC (Bld) 0.8 % Normal 0.2-2.0 [facility] Comment on above: Performed By: #### U RTPCR #### [facility] [address] [place] [address] Dr. Dwight Waters EO # 0.3 103/ul Normal 0.0-0.7 [facility] Comment on above: Performed By: #### U RTPCR #### [facility] [address] [place] [address] Dr. Dwight Waters Eosinophils/100 WBC (Bld) 3.3 % Normal 0.9-7.0 [facility] Comment on above: Performed By: #### U RTPCR #### [facility] [address] [place] [address] Dr. Dwight Waters Erythrocyte distribution width (RBC) [Ratio] 12.4 % Normal 11.0-15.0 [facility] Comment on above: Performed By: #### U RTPCR #### [facility] [address] [place] [address] Dr. Dwight Waters Hematocrit (Bld) [Volume fraction] 45.1 % Normal 42.0-54.0 [facility] Comment on above: Performed By: #### U RTPCR #### [facility] [address] [place] [address] Dr. Dwight Waters Hemoglobin (Bld) [Mass/Vol] 14.4 g/dL Normal 14.0-18.0 [facility] Comment on above: Performed By: #### U RTPCR #### [facility] [address] [place] [address] Dr. Dwight Waters IG # 0.01 10e3/ul Normal 0.00-0.03 [facility] Comment on above: Performed By: #### U RTPCR #### [facility] [address] [place] [address] Dr. Dwight Waters IG % 0.1 % Normal 0.0-0.5 [facility] Comment on above: Performed By: #### U RTPCR #### [facility] [address] [place] [address] Dr. Dwight Waters LYMPH # 2.2 103/ul Normal 1.2-3.8 [facility] Comment on above: Performed By: #### U RTPCR #### [facility] [address] [place] [address] Dr. Dwight Waters Lymphocytes/100 WBC (Bld) 30.0 % Normal 20.5-60.0 [facility] Comment on above: Performed By: #### U RTPCR #### [facility] [address] [place] [address] Dr. Dwight Waters MANUAL DIFF REQ NO Normal [facility] Comment on above: Performed By: #### U RTPCR #### [facility] [address] [place] [address] Dr. Dwight Waters MCH (RBC) [Entitic mass] 28.2 pg Normal 25.9-34.0 [facility] Comment on above: Performed By: #### U RTPCR #### [facility] [address] [place] [address] Dr. Dwight Waters MCHC (RBC) [Mass/Vol] 31.9 g/dL Normal 29.9-35.2 [facility] Comment on above: Performed By: #### U RTPCR #### [facility] [address] [place] [address] Dr. Diwght Waters MCV (RBC) [Entitic vol] 88.3 fL Normal 80.0-94.0 [facility] Comment on above: Performed By: #### U RTPCR #### [facility] [address] [place] [address] Dr. Dwight Waters MONO # 0.6 103/ul Normal 0.3-0.8 [facility] Comment on above: Performed By: #### U RTPCR #### [facility] [address] [place] [address] Dr. Dwight Waters Monocytes/100 WBC (Bld) 8.2 % Normal 1.7-12.0 [facility] Comment on above: Performed By: #### U RTPCR #### [facility] [address] [place] [address] Dr. Dwight Waters NEUT # 4.3 103/ul Normal 1.4-6.5 [facility] Comment on above: Performed By: #### U RTPCR #### [facility] [address] [place] [address] Dr. Dwight Waters Neutrophils/100 WBC (Bld) 57.6 % Normal 43.0-75.0 [facility] Comment on above: Performed By: #### U RTPCR #### [facility] [address] [place] [address] Dr. Dwight Waters Platelet mean volume (Bld) [Entitic vol] 9.7 fL Normal 9.5-13.5 [facility] Comment on above: Performed By: #### U RTPCR #### [facility] [address] [place] [address] Dr. Dwight Waters PLT 297 103/ul Normal 150-450 [facility] Comment on above: Performed By: #### U RTPCR #### [facility] [address] [place] [address] Dr. Dwight Waters RBC 5.11 106/ul Normal 4.70-6.10 [facility] Comment on above: Performed By: #### U RTPCR #### [facility] [address] [place] [address] Dr. Dwight Waters WBC 7.5 103/ul Normal 4.0-11.0 [facility] Comment on above: Performed By: #### U RTPCR #### [facility] [address] [place] [address] Dr. Dwight Waters CHLORIDEon 06-06-2022 Chloride [Moles/Vol] 107 mmol/L Normal 98-107 [facility] Comment on above: Performed By: #### C BC #### [facility] [address] [place] [address] Dr. Dwight Waters CO2on 06-06-2022 CO2 [Moles/Vol] 27.4 mmol/L Normal 21.0-32.0 [facility] Comment on above: Performed By: #### C BC #### [facility] [address] [place] [address] Dr. Dwight Waters CREATININEon 06-06-2022 Creatinine [Mass/Vol] 1.20 mg/dL Normal 0.70-1.30 [facility] Comment on above: Performed By: #### C BC #### [facility] [address] [place] [address] Dr. Dwight Waters EGFR-AF BHUTANESE >60 Normal >=60 [facility] Comment on above: Performed By: #### C BC #### [facility] [address] [place] [address] Dr. Dwight Waters EGFR-NON AF BHUTANESE >60 Normal >=60 [facility] Comment on above: Performed By: #### C BC #### [facility] [address] [place] [address] Dr. Dwight Waters GGTon 06-06-2022 Gamma glutamyl transferase [Catalytic activity/Vol] 29 U/L Normal 15-85 [facility] Comment on above: Performed By: #### C BC #### [facility] [address] [place] [address] Dr. Dwight Waters GLUCOSE BLOODon 06-06-2022 Glucose [Mass/Vol] 112 mg/dL Critically high 74-106 [facility] Comment on above: Performed By: #### C BC #### [facility] [address] [place] [address] Dr. Dwight Waters MAGNESIUMon 06-06-2022 Magnesium [Mass/Vol] 1.3 mg/dL Critically low 1.8-2.4 [facility] Comment on above: Performed By: #### C MP #### [facility] [address] [place] [address] Dr. Dwight Waters NAon 06-06-2022 Sodium [Moles/Vol] 141 mmol/L Normal 136-145 [facility] Comment on above: Performed By: #### C MP #### [facility] [address] [place] [address] Dr. Dwight Waters PHOSPHORUSon 06-06-2022 Phosphate [Mass/Vol] 3.1 mg/dL Normal 2.6-4.7 [facility] Comment on above: Performed By: #### C MP #### [facility] [address] [place] [address] Dr. Dwight Waters POTASSIUMon 06-06-2022 Potassium [Moles/Vol] 4.3 mmol/L Normal 3.5-5.1 [facility] Comment on above: Performed By: #### C BC #### [facility] [address] [place] [address] Dr. Dwight Waters SGOTon 06-06-2022 AST [Catalytic activity/Vol] 16 U/L Normal 15-37 [facility] Comment on above: Performed By: #### C BC #### [facility] [address] [place], [place] [address] Dr. Dwight Waters SGPTon 06-06-2022 ALT [Catalytic activity/Vol] 50 U/L Normal 16-63 [facility] Comment on above: Performed By: #### C BC #### [facility] [address] [place], [place] [address] Dr. Dwight Waters Bacteria identified Cx Nom ( Bld)on 05-21-2022 Bacteria identified Cx Nom (Unsp spec) NO GROWTH DAY 5 OF 5 [facility] Results may be compr omised due to volume of BACT\ALERT bottle exceeding 10mLs . The optimal blood volume is 8-10 mls per aerobic/anaerobic blood culture bottle. [facility] CALCIUMon 05-20-2022 Calcium [Mass/Vol] 9.1 mg/dL 8.6 - 10. 5 mg/dL [facility] CBC,PLATELETSon 05-20-2022 Erythrocyte distribution width (RBC) [Ratio] 12.5 % 10.9 - 14.3 % [facility] Hematocrit (Bld) [Volume fraction] 37.1 % Low 39.6 - 48.8 % [facility] Hemoglobin (Bld) [Mass/Vol] 12.3 g/dL Low 13.4 - 16.8 g/dL [facility] Interpretation and review of laboratory results Abnormal [facility] MCH (RBC) [Entitic mass] 28.9 pg 26.1 - 33.[address] [facility] MCHC (RBC) [Mass/Vol] 33.2 g/dL 31.9 - 36.5 g/dL [facility] MCV (RBC) [Entitic vol] 87.3 fL 79.0 - 94.[address] [facility] Platelet mean volume (Bld) [Entitic vol] 9.9 fL 8.7 - 12.[address] [facility] Platelets (Bld) [#/Vol] 234 10*3/uL 146 - 337 K/uL [facility] RBC (Bld) [#/Vol] 4.25 10*6/uL Low [facility] WBC (Bld) [#/Vol] 6.31 10*3/uL 3.73 - 10. 10 K/uL [facility] CHEM 7 (LYTES,BUN,CREA,GLUC) on 05-20-2022 Anion gap [Moles/Vol] 15 mmol/L 7 - 17 mmol/L [facility] Chloride [Moles/Vol] 111 mmol/L High 98 - 10 8 mmol/L [facility] CO2 [Moles/Vol] 22 mmol/L 21 - 31 mmol/L [facility] Creatinine [Mass/Vol] 1.10 mg/dL 0.70 - 1.30 mg/dL [facility] GFR/1.73 sq M.predicted CKD-EPI (S/P/Bld) [Vol rate/Area] 81 >=60 mL/min/1.73m [address] [facility] Comment on above: Reported eGFR is bas ed on the CKD-EPI 2020 equation using creatinine, age, and sex. Glucose [Mass/Vol] 92 mg/dL 70 - 99 mg/dL [facility] Interpretation and review of laboratory results Abnormal [facility] Osmolality Calc [Osmolality] [address] [facility] Potassium [Moles/Vol] 4.4 mmol/L 3.5 - 5.0 mmol/L [facility] Sodium [Moles/Vol] 144 mmol/L 135 - 145 mmol/L [facility] Urea nitrogen [Mass/Vol] 18 mg/dL 7 - 25 mg/dL [facility] Urea nitrogen/Creatinine [Mass ratio] 16 mg/mg [facility] MAGNESIUMon 05-20-2022 Interpretation and review of laboratory results Abnormal [facility] Magnesium [Mass/Vol] 1.5 mg/dL Low 1.6 - 2 .6 mg/dL [facility] No Panel Informationon 05-20 Interpretation and review of laboratory results Normal [facility] PHOSPHATE, INORGANICon 05-20 Phosphate [Mass/Vol] 3.3 mg/dL 2.2 - 4 .6 mg/dL [facility] RF Unspecified body [...] projections of kidneys, ureters, and bladder. FINDINGS: [employer] images: [employer] radiographs of the abdomen reveal a nonobstructive [...] Contrast refluxes up the ureter to the [place] right kidney that is grossly normal appearing. [...] projections of kidneys, ureters, and bladder. FINDINGS: [employer] images: [employer] radiographs of the abdomen reveal a nonobstructive [...] Contrast refluxes up the ureter to the [place] right kidney that is grossly normal appearing. [...] reviewed and approved this report. [facility] Radiology Study observation (narrative) [facility] Unspecified body region V iews during surgeryOrdered By: Lizz Campos on 05-20-[address] [facility] Work Phone: CALCIUMon 05-19-2022 Calcium [Mass/Vol] 9.2 mg/dL 8.6 - 10. 5 mg/dL [facility] Calcium [Mass/Vol] 8.6 mg/dL 8.6 - 10. 5 mg/dL [facility] CBC,PLATELETSon 05-19-2022 Erythrocyte distribution width (RBC) [Ratio] 12.4 % 10.9 - 14.3 % [facility] Hematocrit (Bld) [Volume fraction] 38.0 % Low 39.6 - 48.8 % [facility] Hemoglobin (Bld) [Mass/Vol] 12.0 g/dL Low 13.4 - 16.8 g/dL [facility] Interpretation and review of laboratory results Abnormal [facility] MCH (RBC) [Entitic mass] 28.6 pg 26.1 - 33.[address] [facility] MCHC (RBC) [Mass/Vol] 31.6 g/dL Low 31.9 - 36.5 g/dL [facility] MCV (RBC) [Entitic vol] 90.5 fL 79.0 - 94.[address] [facility] Platelet mean volume (Bld) [Entitic vol] 9.7 fL 8.7 - 12.[address] [facility] Platelets (Bld) [#/Vol] 199 10*3/uL 146 - 337 K/uL [facility] RBC (Bld) [#/Vol] 4.20 10*6/uL Low [facility] WBC (Bld) [#/Vol] 6.81 10*3/uL 3.73 - 10. 10 K/uL [facility] CHEM 7 (LYTES,BUN,CREA,GLUC) on 05-19-2022 Anion gap [Moles/Vol] 13 mmol/L 7 - 17 mmol/L [facility] Chloride [Moles/Vol] 105 mmol/L 98 - 10 8 mmol/L [facility] CO2 [Moles/Vol] 30 mmol/L 21 - 31 mmol/L [facility] Creatinine [Mass/Vol] 1.39 mg/dL High 0.70 - 1.30 mg/dL [facility] GFR/1.73 sq M.predicted CKD-EPI (S/P/Bld) [Vol rate/Area] 61 >=60 mL/min/1.73m [address] [facility] Comment on above: Reported eGFR is bas ed on the CKD-EPI 2020 equation using creatinine, age, and sex. Glucose [Mass/Vol] 121 mg/dL High 70 - 99 mg/dL [facility] Interpretation and review of laboratory results Abnormal [facility] Osmolality Calc [Osmolality] 303 [facility] [place] Potassium [Moles/Vol] 3.8 mmol/L 3.5 - 5.0 mmol/L [facility] Sodium [Moles/Vol] 144 mmol/L 135 - 145 mmol/L [facility] Urea nitrogen [Mass/Vol] 18 mg/dL 7 - 25 mg/dL [facility] Urea nitrogen/Creatinine [Mass ratio] 13 mg/mg [facility] Anion gap [Moles/Vol] 15 mmol/L 7 - 17 mmol/L [facility] Chloride [Moles/Vol] 106 mmol/L 98 - 10 8 mmol/L [facility] CO2 [Moles/Vol] 24 mmol/L 21 - 31 mmol/L [facility] Creatinine [Mass/Vol] 1.46 mg/dL High 0.70 - 1.30 mg/dL [facility] GFR/1.73 sq M.predicted CKD-EPI (S/P/Bld) [Vol rate/Area] 58 Low >=60 mL/min/1.73m [address] [facility] Comment on above: Reported eGFR is bas ed on the CKD-EPI 1 equation using creatinine, age, and sex. Glucose [Mass/Vol] 103 mg/dL High 70 - 99 mg/dL [facility] Interpretation and review of laboratory results Abnormal [facility] Osmolality Calc [Osmolality] 298 [facility] Potassium [Moles/Vol] 3.9 mmol/L 3.5 - 5.0 mmol/L [facility] Sodium [Moles/Vol] 141 mmol/L 135 - 145 mmol/L [facility] Urea nitrogen [Mass/Vol] 21 mg/dL 7 - 25 mg/dL [facility] Urea nitrogen/Creatinine [Mass ratio] 14 mg/mg [facility] MAGNESIUMon 05-19-2022 Magnesium [Mass/Vol] 2.0 mg/dL 1.6 - 2 .6 mg/dL [facility] Magnesium [Mass/Vol] 1.7 mg/dL 1.6 - 2 .6 mg/dL [facility] No Panel Informationon 05-19 Interpretation and review of laboratory results Normal [facility] Interpretation and review of laboratory results Normal [facility] PHOSPHATE, INORGANICon 05-19 Phosphate [Mass/Vol] 3.0 mg/dL 2.2 - 4 .6 mg/dL [facility] Phosphate [Mass/Vol] 2.7 mg/dL 2.2 - 4 .6 mg/dL [facility] CALCIUMon 05-18-2022 Calcium [Mass/Vol] 9.1 mg/dL 8.6 - 10. 5 mg/dL [facility] CBC,PLATELETSon 05-18-2022 Erythrocyte distribution width (RBC) [Ratio] 12.5 % 10.9 - 14.3 % [facility] Hematocrit (Bld) [Volume fraction] 37.3 % Low 39.6 - 48.8 % [facility] Hemoglobin (Bld) [Mass/Vol] 11.9 g/dL Low 13.4 - 16.8 g/dL [facility] Interpretation and review of laboratory results Abnormal [facility] MCH (RBC) [Entitic mass] 28.9 pg 26.1 - 33.[address] [facility] MCHC (RBC) [Mass/Vol] 31.9 g/dL 31.9 - 36.5 g/dL [facility] MCV (RBC) [Entitic vol] 90.5 fL 79.0 - 94.[address] [facility] Platelet mean volume (Bld) [Entitic vol] 10.1 fL 8.7 - 12.[address] [facility] Platelets (Bld) [#/Vol] 189 10*3/uL 146 - 337 K/uL [facility] RBC (Bld) [#/Vol] 4.12 10*6/uL [facility] WBC (Bld) [#/Vol] 10.19 10*3/uL High 3.73 - 10 .10 K/uL [facility] CHEM 7 (LYTES,BUN,CREA,GLUC) on 05-18-2022 Anion gap [Moles/Vol] 13 mmol/L 7 - 17 mmol/L [facility] Chloride [Moles/Vol] 102 mmol/L 98 - 10 8 mmol/L [facility] CO2 [Moles/Vol] 26 mmol/L 21 - 31 mmol/L [facility] Creatinine [Mass/Vol] 1.91 mg/dL High 0.70 - 1.30 mg/dL [facility] GFR/1.73 sq M.predicted CKD-EPI (S/P/Bld) [Vol rate/Area] 42 Low >=60 mL/min/1.73m [address] [facility] Comment on above: Reported eGFR is bas ed on the CKD-EPI 2020 equation using creatinine, age, and sex. Glucose [Mass/Vol] 158 mg/dL High 70 - 99 mg/dL [facility] Osmolality Calc [Osmolality] [address] [facility] Potassium [Moles/Vol] 4.0 mmol/L 3.5 - 5.0 mmol/L [facility] Sodium [Moles/Vol] 137 mmol/L 135 - 145 mmol/L [facility] Urea nitrogen [Mass/Vol] 30 mg/dL High 7 - 25 mg/dL [facility] Urea nitrogen/Creatinine [Mass ratio] 16 mg/mg [facility] CHEM 7 (LYTES,BUN,CREA,GLUC) Ordered By: Tmaiko Thapa on 05-18-2022 Anion gap [Moles/Vol] 13 mmol/L 7 - 17 mmol/L [facility] Chloride [Moles/Vol] 104 mmol/L 98 - 10 8 mmol/L [facility] CO2 [Moles/Vol] 26 mmol/L 21 - 31 mmol/L [facility] Creatinine [Mass/Vol] 2.96 mg/dL High 0.70 - 1.30 mg/dL [facility] GFR/1.73 sq M.predicted CKD-EPI (S/P/Bld) [Vol rate/Area] 25 Low >=60 mL/min/1.73m [address] [facility] Comment on above: Reported eGFR is bas ed on the CKD-EPI 2020 equation using creatinine, age, and sex. Glucose [Mass/Vol] 136 mg/dL High 70 - 99 mg/dL [facility] Interpretation and review of laboratory results Abnormal [facility] Osmolality Calc [Osmolality] [address] [facility] Potassium [Moles/Vol] 4.2 mmol/L 3.5 - 5.0 mmol/L [facility] Sodium [Moles/Vol] 139 mmol/L 135 - 145 mmol/L [facility] Urea nitrogen [Mass/Vol] 41 mg/dL High 7 - 25 mg/dL [facility] Urea nitrogen/Creatinine [Mass ratio] 14 mg/mg [facility] MAGNESIUMon 05-18-2022 Magnesium [Mass/Vol] 2.2 mg/dL 1.6 - 2 .6 mg/dL [facility] Interpretation and review of laboratory results Normal [facility] Magnesium [Mass/Vol] 1.7 mg/dL 1.6 - 2 .6 mg/dL [facility] No Panel Informationon 05-18 Interpretation and review of laboratory results Abnormal [facility] Interpretation and review of laboratory results Normal [facility] PHOSPHATE, INORGANICon 05-18 Phosphate [Mass/Vol] 2.0 mg/dL Low 2.2 - 4 .6 mg/dL [facility] Interpretation and review of laboratory results Normal [facility] Phosphate [Mass/Vol] 2.8 mg/dL 2.2 - 4 .6 mg/dL [facility] PT,INR,PTTon 05-18-2022 aPTT Coag (PPP) [Time] 31.[address] [facility] INR Coag (Bld) [Relative time] 1.1 {INR} [facility] Interpretation and review of laboratory results Abnormal [facility] PT Coag (PPP) [Time] 14.4 s High [facility] URINE CULTUREOrdered By: Sylvia Campos on 05-18-2022 Bacteria identified Cx Nom (Unsp spec) No Growth [facility] CBC,PLATELETSon 05-17-2022 Erythrocyte distribution width (RBC) [Ratio] 12.8 % 10.9 - 14.3 % [facility] Hematocrit (Bld) [Volume fraction] 42.8 % 39.6 - 48.8 % [facility] Hemoglobin (Bld) [Mass/Vol] 13.3 g/dL Low 13.4 - 16.8 g/dL [facility] Interpretation and review of laboratory results Abnormal [facility] MCH (RBC) [Entitic mass] 28.9 pg 26.1 - 33.[address] [facility] MCHC (RBC) [Mass/Vol] 31.1 g/dL Low 31.9 - 36.5 g/dL [facility] MCV (RBC) [Entitic vol] 92.8 fL 79.0 - 94.[address] [facility] Platelet mean volume (Bld) [Entitic vol] 10.3 fL 8.7 - 12.[address] [facility] Platelets (Bld) [#/Vol] 188 10*3/uL 146 - 337 K/uL [facility] RBC (Bld) [#/Vol] 4.61 10*6/uL [facility] WBC (Bld) [#/Vol] 16.61 10*3/uL High 3.73 - 10 .10 K/uL [facility] CHEM 7 (LYTES,BUN,CREA,GLUC) Ordered By: Kaylah Mc on 05-17-2022 Anion gap [Moles/Vol] 15 mmol/L 7 - 17 mmol/L [facility] Chloride [Moles/Vol] 103 mmol/L 98 - 10 8 mmol/L [facility] CO2 [Moles/Vol] 23 mmol/L 21 - 31 mmol/L [facility] Creatinine [Mass/Vol] 5.95 mg/dL High 0.70 - 1.30 mg/dL [facility] GFR/1.73 sq M.predicted CKD-EPI (S/P/Bld) [Vol rate/Area] 11 Low >=60 mL/min/1.73m [address] [facility] Comment on above: Reported eGFR is bas ed on the CKD-EPI 2020 equation using creatinine, age, and sex. Glucose [Mass/Vol] 165 mg/dL High 70 - 99 mg/dL [facility] Interpretation and review of laboratory results Abnormal [facility] Osmolality Calc [Osmolality] [address] [facility] Potassium [Moles/Vol] 4.6 mmol/L 3.5 - 5.0 mmol/L [facility] Sodium [Moles/Vol] 136 mmol/L 135 - 145 mmol/L [facility] Urea nitrogen [Mass/Vol] 52 mg/dL High 7 - 25 mg/dL [facility] Urea nitrogen/Creatinine [Mass ratio] 9 mg/mg [facility] CHEM 7 (LYTES,BUN,CREA,GLUC) Ordered By: Kehinde Gutierrez on 05-17-2022 Anion gap [Moles/Vol] 24 mmol/L High 7 - 17 mmol/L [facility] Chloride [Moles/Vol] 100 mmol/L 98 - 10 8 mmol/L [facility] CO2 [Moles/Vol] 16 mmol/L Low 21 - 31 mmol/L [facility] Creatinine [Mass/Vol] 8.08 mg/dL High 0.70 - 1.30 mg/dL [facility] GFR/1.73 sq M.predicted CKD-EPI (S/P/Bld) [Vol rate/Area] 7 Low >=60 mL/min/1.73m [address] [facility] Comment on above: Reported eGFR is bas ed on the CKD-EPI 2020 equation using creatinine, age, and sex. Glucose [Mass/Vol] 164 mg/dL High 70 - 99 mg/dL [facility] Interpretation and review of laboratory results Abnormal [facility] Osmolality Calc [Osmolality] 305 [facility] Potassium [Moles/Vol] 5.0 mmol/L 3.5 - 5.0 mmol/L [facility] Sodium [Moles/Vol] 135 mmol/L 135 - 145 mmol/L [facility] Urea nitrogen [Mass/Vol] 56 mg/dL High 7 - 25 mg/dL [facility] Urea nitrogen/Creatinine [Mass ratio] 7 mg/mg [facility] LAVENDER TOP TUBEon 05-17-[address] [facility] MAGNESIUMon 05-17-2022 Interpretation and review of laboratory results Normal [facility] Magnesium [Mass/Vol] 1.8 mg/dL 1.6 - 2 .6 mg/dL [facility] Interpretation and review of laboratory results Normal [facility] Magnesium [Mass/Vol] 1.6 mg/dL 1.6 - 2 .6 mg/dL [facility] No Panel Informationon 05-[address] [facility] PHOSPHATE, INORGANICon 05-17 Interpretation and review of laboratory results Abnormal [facility] Phosphate [Mass/Vol] 4.9 mg/dL High 2.2 - 4 .6 mg/dL [facility] PT,INR,PTTon 05-17-2022 aPTT Coag (PPP) [Time] 33.[address] [facility] INR Coag (Bld) [Relative time] 1.3 {INR} High [facility] Interpretation and review of laboratory results Abnormal [facility] PT Coag (PPP) [Time] 15.7 s High [facility] Portable XR Chest Viewson IMPRESSION: [...] IMPRESSION IMPRESSION: No acute findings. [facility] Radiology Study observation (narrative) [facility] Portable XR Chest ViewsOrder ed By: Raheem Sanz on 05-17-[address] [facility] Work Phone: URINALYSISOrdered By: Michael patel Ma on 05-17-2022 Appearance (U) Cloudy Abnormal Clear [facility] Comment on above: Results may be inacc urate due to color interference. Clinical correlation recommended. Bacteria LM Ql (Urine sed) ABSENT ABSENT [facility] Color (U) Red Abnormal Yellow [facility] Comment on above: Results may be inacc urate due to color interference. Clinical correlation recommended. Epithelial cells.squamous LM Ql (Urine sed) ABSENT 1/hpf = 1+, 2-5/hpf = 2+, 0/hpf = 0+, ABSENT [facility] Glucose Test strip (U) [Mass/Vol] Negative Negative [facility] Comment on above: Results may be inacc urate due to color interference. Clinical correlation recommended. Interpretation and review of laboratory results Abnormal [facility] Ketones (U) [Mass/Vol] Trace Abnormal Negative [facility] Comment on above: Results may be inacc urate due to color interference. Clinical correlation recommended. Leukocyte esterase Test strip Ql (U) Large Abnormal Negative [facility] Comment on above: Results may be inacc urate due to color interference. Clinical correlation recommended. Nitrite Ql (U) Negative Negative [facility] Comment on above: Results may be inacc urate due to color interference. Clinical correlation recommended. pH (U) 5.0 [pH] 5.0 - 7.[address] [facility] Comment on above: Results may be inacc urate due to color interference. Clinical correlation recommended. Protein (U) [Mass/Vol] mg/dL Abnormal Negative [facility] Comment on above: Results may be inacc urate due to color interference. Clinical correlation recommended. RBC (U) [#/Vol] Large Abnormal Negative [facility] Comment on above: Results may be inacc urate due to color interference. Clinical correlation recommended. RBC LM.HPF (Urine sed) [#/Area] /[HPF] Abnormal 0 - 2 /HPF [facility] Specific gravity (U) [Rel density] 1.[address] [facility] Comment on above: Results may be inacc urate due to color interference. Clinical correlation recommended. Urobilinogen (U) [Mass/Vol] 0.2 E.U./dL 0.2 E.U/dL, 1.0 E.U/dL [facility] Comment on above: Results may be inacc urate due to color interference. Clinical correlation recommended. WBC LM.HPF (Urine sed) [#/Area] /[HPF] Abnormal 0 - 5 /HPF [facility] URINE CULTUREOrdered By: Tyler Tiwari on 05-17-2022 Bacteria identified Cx Nom (Unsp spec) No Growth [facility] CBC,PLATELETSon 05-16-2022 Erythrocyte distribution width (RBC) [Ratio] 12.9 % 10.9 - 14.3 % [facility] Hematocrit (Bld) [Volume fraction] 46.5 % 39.6 - 48.8 % [facility] Hemoglobin (Bld) [Mass/Vol] 14.7 g/dL 13.4 - 16.8 g/dL [facility] Interpretation and review of laboratory results Abnormal [facility] MCH (RBC) [Entitic mass] 28.3 pg 26.1 - 33.[address] [facility] MCHC (RBC) [Mass/Vol] 31.6 g/dL Low 31.9 - 36.5 g/dL [facility] MCV (RBC) [Entitic vol] 89.6 fL 79.0 - 94.[address] [facility] Platelet mean volume (Bld) [Entitic vol] 10.3 fL 8.7 - 12.[address] [facility] Platelets (Bld) [#/Vol] 188 10*3/uL 146 - 337 K/uL [facility] RBC (Bld) [#/Vol] 5.19 10*6/uL [facility] WBC (Bld) [#/Vol] 12.55 10*3/uL High 3.73 - 10 .10 K/uL [facility] CHEM 7 (LYTES,BUN,CREA,GLUC) Ordered By: Alma Pena on 05-16-2022 Anion gap [Moles/Vol] 14 mmol/L 7 - 17 mmol/L [facility] Chloride [Moles/Vol] 103 mmol/L 98 - 10 8 mmol/L [facility] CO2 [Moles/Vol] 22 mmol/L 21 - 31 mmol/L [facility] Creatinine [Mass/Vol] 6.09 mg/dL High 0.70 - 1.30 mg/dL [facility] GFR/1.73 sq M.predicted CKD-EPI (S/P/Bld) [Vol rate/Area] 10 Low >=60 mL/min/1.73m [address] [facility] Comment on above: Reported eGFR is bas ed on the CKD-EPI 2020 equation using creatinine, age, and sex. Glucose [Mass/Vol] 134 mg/dL High 70 - 99 mg/dL [facility] Interpretation and review of laboratory results Abnormal [facility] Osmolality Calc [Osmolality] [address] [facility] Potassium [Moles/Vol] 4.9 mmol/L 3.5 - 5.0 mmol/L [facility] Sodium [Moles/Vol] 134 mmol/L Low 135 - 145 mmol/L [facility] Comment on above: Results inconsistent with previous results Urea nitrogen [Mass/Vol] 49 mg/dL High 7 - 25 mg/dL [facility] Urea nitrogen/Creatinine [Mass ratio] 8 mg/mg [facility] CHEM 7 (LYTES,BUN,CREA,GLUC) on 05-16-2022 Anion gap [Moles/Vol] 17 mmol/L 7 - 17 mmol/L [facility] Chloride [Moles/Vol] 106 mmol/L 98 - 10 8 mmol/L [facility] CO2 [Moles/Vol] 22 mmol/L 21 - 31 mmol/L [facility] Creatinine [Mass/Vol] 5.23 mg/dL High 0.70 - 1.30 mg/dL [facility] GFR/1.73 sq M.predicted CKD-EPI (S/P/Bld) [Vol rate/Area] 13 Low >=60 mL/min/1.73m [address] [facility] Comment on above: Reported eGFR is bas ed on the CKD-EPI 2020 equation using creatinine, age, and sex. Glucose [Mass/Vol] 116 mg/dL High 70 - 99 mg/dL [facility] Interpretation and review of laboratory results Abnormal [facility] Osmolality Calc [Osmolality] [address] [facility] Potassium [Moles/Vol] 4.6 mmol/L 3.5 - 5.0 mmol/L [facility] Sodium [Moles/Vol] 140 mmol/L 135 - 145 mmol/L [facility] Urea nitrogen [Mass/Vol] 42 mg/dL High 7 - 25 mg/dL [facility] Urea nitrogen/Creatinine [Mass ratio] 8 mg/mg [facility] EXTRA MICROon 05-16-[address] [facility] LT BLUE TOP TUBEon [address] [facility] LYTES (NA, K, CL) - URINE - RANDOMon 05-16-2022 Chloride (24H U) [Moles/Vol] 68 mmol/L [facility] Potassium (24H U) [Moles/Vol] 36.7 mmol/L [facility] Sodium (24H U) [Moles/Vol] 55 mmol/L [facility] The reference range has not been established for random urine specimens. The test result should be integrated into the clinical context for interpretation. [facility] MAGNESIUMon 05-16-2022 Interpretation and review of laboratory results Normal [facility] Magnesium [Mass/Vol] 1.7 mg/dL 1.6 - 2 .6 mg/dL [facility] NOVEL CORONAVIRUS PCROrdered By: Edson Candelario on 05-16-2022 SARS-CoV-2 (COVID-19) RNA ESTELITA+probe Ql (Unsp spec) Not detected NOT DETECTED [facility] Comment on above: [facility] Negative results do not [...] for use by authorized laboratories. [facility] No Panel Informationon 05-16 [facility] OSMOLALITY, URINEon 05-16-20 Interpretation and review of laboratory results Normal [facility] Osmolality (U) [Osmolality] 320 mosm/kg [facility] The reference range has not been established for random urine specimens. The test result should be integrated into the clinical context for interpretation. [facility] PROCALCITONINon 05-16-2022 Interpretation and review of laboratory results Normal [facility] Procalcitonin [Mass/Vol] 0.18 ng/mL <0.[address] [facility] Comment on above: Procalcitonin is an [...] and trend procalcitonin in various clinical settings. [email or web address] [email or web address]&action=[email or web address] Two common cutoffs associated with bacterial infections are as follows. Respiratory tract infections: >0.25 ng/mL Sepsis/septic shock: >0.5 ng/mL Procalcitonin should not be used alone as a diagnostic tool, however. All procalcitonin results should be interpreted in association with the patients clinical condition and all laboratory findings. [facility] PT,INR,PTTon 05-16-2022 aPTT Coag (PPP) [Time] 30.[address] [facility] INR Coag (Bld) [Relative time] 1.1 {INR} [facility] Interpretation and review of laboratory results Normal [facility] PT Coag (PPP) [Time] 14.1 s [facility] SARS-CoV-2 (COVID-19) RNA NA A+probe Ql (Unsp spec)Ordered By: Edson Candelario on 05-16-2022 Interpretation and review of laboratory results Normal [facility] TACROLIMUS LEVEL, TROUGH (MN E DRUG LEVEL)Ordered By: Mariama Nick on 05-16-2022 Interpretation and review of laboratory results Normal [facility] Tacrolimus (Bld) [Mass/Vol] 4.1 ng/mL Bone Marrow Transplant: 4.0-12.0, Therapeutic: 5.0-15.0 [facility] Method performed is a chemiluminescent microparticle immunoasssay on the [employer] i2000. The range is based on experience at [facility] and users should be aware that target concentrations vary widely depending on concomitant therapy, time post-transplant, and desired degree of immunosuppression. [facility] URINE PROTEIN/CREA RATIO, RA Smiley 05-16-2022 Creatinine (24H U) [Mass/Vol] 59.82 mg/dL [facility] Protein Unsp time (U) [Mass/Vol] 111 mg/dL [facility] Protein/Creatinine (U) [Mass ratio] 1.856 mg/g [facility] US for transplanted kidney dina sánchez 05-16-2022 [...] flow in the transplant kidney. [facility] Radiology Study observation (narrative) [facility] US for transplanted kidney l imitedOrdered By: Rosendo Matute on 05-16-[address] [facility] Work Phone: CBC AND ELECTRONIC DIFFon Basophils (Bld) [#/Vol] 10*3/uL 0.00 - 0.09 K/uL [facility] Basophils/100 WBC (Bld) 0.2 % [facility] Differential cell count method Nom (Bld) Electronic Differential [facility] Eosinophils (Bld) [#/Vol] 10*3/uL 0.00 - 0.48 K/uL [facility] Eosinophils/100 WBC (Bld) 0.0 % [facility] Erythrocyte distribution width (RBC) [Ratio] 12.8 % 10.9 - 14.3 % [facility] Hematocrit (Bld) [Volume fraction] 46.0 % 39.6 - 48.8 % [facility] Hemoglobin (Bld) [Mass/Vol] 14.6 g/dL 13.4 - 16.8 g/dL [facility] Immature granulocytes (Bld) [#/Vol] 0.07 10*3/uL <=0.[address] [facility] Immature granulocytes/100 WBC (Bld) 0.4 % [facility] Interpretation and review of laboratory results Abnormal [facility] Lymphocytes (Bld) [#/Vol] 1.49 10*3/uL 0.83 - 3.57 K/uL [facility] Lymphocytes/100 WBC (Bld) 9.4 % [facility] MCH (RBC) [Entitic mass] 28.2 pg 26.1 - 33.[address] [facility] MCHC (RBC) [Mass/Vol] 31.7 g/dL Low 31.9 - 36.5 g/dL [facility] MCV (RBC) [Entitic vol] 89.0 fL 79.0 - 94.[address] [facility] Monocytes (Bld) [#/Vol] 1.45 10*3/uL High 0.24 - 0.93 K/uL [facility] Monocytes/100 WBC (Bld) 9.2 % [facility] Neutrophils (Bld) [#/Vol] 12.77 10*3/uL High 1.57 - 6.19 K/uL [facility] Nucleated RBC/100 WBC (Bld) [Ratio] 0.0 % <=0.2 /[address] [facility] Platelet mean volume (Bld) [Entitic vol] 9.9 fL 8.7 - 12.[address] [facility] Platelets (Bld) [#/Vol] 250 10*3/uL 146 - 337 K/uL [facility] RBC (Bld) [#/Vol] 5.17 10*6/uL [facility] Segmented neutrophils/100 WBC (Bld) 80.8 % [facility] WBC (Bld) [#/Vol] 15.81 10*3/uL High 3.73 - 10 .10 K/uL [facility] CBC AUTO DIFFon 05-15-2022 BASO # 0.0 103/ul Normal 0.0-0.1 [facility] Comment on above: Performed By: #### C BC #### [facility] [address] [place] [address] Dr. Dwight Waters Basophils/100 WBC (Bld) 0.3 % Normal 0.2-2.0 [facility] Comment on above: Performed By: #### C BC #### [facility] [address] [place] [address] Dr. Dwight Waters EO # 0.1 103/ul Normal 0.0-0.7 [facility] Comment on above: Performed By: #### C BC #### [facility] [address] [place] [address] Dr. Dwight Waters Eosinophils/100 WBC (Bld) 0.8 % Critically low 0.9-7.0 [facility] Comment on above: Performed By: #### C BC #### [facility] [address] [place] [address] Dr. Dwight Waters Erythrocyte distribution width (RBC) [Ratio] 12.7 % Normal 11.0-15.0 [facility] Comment on above: Performed By: #### C BC #### [facility] [address] [place] [address] Dr. Dwihgt Waters Hematocrit (Bld) [Volume fraction] 43.5 % Normal 42.0-54.0 [facility] Comment on above: Performed By: #### C BC #### [facility] [address] [place] [address] Dr. Dwight Waters Hemoglobin (Bld) [Mass/Vol] 14.4 g/dL Normal 14.0-18.0 [facility] Comment on above: Performed By: #### C BC #### [facility] [address] [place] [address] Dr. Dwight Waters IG # 0.02 10e3/ul Normal 0.00-0.03 [facility] Comment on above: Performed By: #### C BC #### [facility] [address] [place] [address] Dr. Dwight Waters IG % 0.2 % Normal 0.0-0.5 [facility] Comment on above: Performed By: #### C BC #### [facility] [address] [place] [address] Dr. Dwight Waters LYMPH # 1.5 103/ul Normal 1.2-3.8 [facility] Comment on above: Performed By: #### C BC #### [facility] [address] [place] [address] Dr. Dwight Waters Lymphocytes/100 WBC (Bld) 12.5 % Critically low 20.5-60.0 [facility] Comment on above: Performed By: #### C BC #### [facility] [address] [place] [address] Dr. Dwight Waters MANUAL DIFF REQ NO Normal [facility] Comment on above: Performed By: #### C BC #### [facility] [address] [place] [address] Dr. Dwight Waters MCH (RBC) [Entitic mass] 28.6 pg Normal 25.9-34.0 [facility] Comment on above: Performed By: #### C BC #### [facility] [address] [place] [address] Dr. Dwight Waters MCHC (RBC) [Mass/Vol] 33.1 g/dL Normal 29.9-35.2 [facility] Comment on above: Performed By: #### C BC #### [facility] [address] [place] [address] Dr. Dwight Waters MCV (RBC) [Entitic vol] 86.3 fL Normal 80.0-94.0 [facility] Comment on above: Performed By: #### C BC #### [facility] [address] [place] [address] Dr. Dwight Waters MONO # 1.0 103/ul Critically high 0.3-0.8 [facility] Comment on above: Performed By: #### C BC #### [facility] [address] [place] [address] Dr. Dwight Waters Monocytes/100 WBC (Bld) 8.2 % Normal 1.7-12.0 [facility] Comment on above: Performed By: #### C BC #### [facility] [address] [place] [address] Dr. Dwight Waters NEUT # 9.1 103/ul Critically high 1.4-6.5 [facility] Comment on above: Performed By: #### C BC #### [facility] [address] [place] [address] Dr. Dwight Waters Neutrophils/100 WBC (Bld) 78.0 % Critically high 43.0-75.0 [facility] Comment on above: Performed By: #### C BC #### [facility] [address] [place] [address] Dr. Dwight Waters Platelet mean volume (Bld) [Entitic vol] 9.8 fL Normal 9.5-13.5 [facility] Comment on above: Performed By: #### C BC #### [facility] [address] [address] [address] Dwight Waters PLT 251 103/ul Normal 150-450 [facility] Comment on above: Performed By: #### C BC #### [facility] [address] [address] [address] Dwight Waters RBC 5.04 106/ul Normal 4.70-6.10 [facility] Comment on above: Performed By: #### C BC #### [facility] [address] [address] [address] Dwight Waters WBC 11.6 103/ul Critically high 4.0-11.0 [facility] Comment on above: Performed By: #### C BC #### [facility] [address] [place] [address] Dr. Dwight Waters CHEM 6 (LYTES, BUN CREA)on 0 05-15-2022 Anion gap [Moles/Vol] 12 mmol/L 7 - 17 mmol/L [facility] Chloride [Moles/Vol] 105 mmol/L 98 - 10 8 mmol/L [facility] CO2 [Moles/Vol] 26 mmol/L 21 - 31 mmol/L [facility] Creatinine [Mass/Vol] 2.85 mg/dL High 0.70 - 1.30 mg/dL [facility] GFR/1.73 sq M.predicted CKD-EPI (S/P/Bld) [Vol rate/Area] 26 Low >=60 mL/min/1.73m [address] [facility] Comment on above: Reported eGFR is bas ed on the CKD-EPI 2020 equation using creatinine, age, and sex. Potassium [Moles/Vol] 4.6 mmol/L 3.5 - 5.0 mmol/L [facility] Sodium [Moles/Vol] 138 mmol/L 135 - 145 mmol/L [facility] Urea nitrogen [Mass/Vol] 32 mg/dL High 7 - 25 mg/dL [facility] Urea nitrogen/Creatinine [Mass ratio] 11 mg/mg [facility] CT ABD/PELVIS WO CONon 05-15 CT [...] transplanted kidney with moderate right-sided hydronephrosis. Atrophic [place] kidneys with moderate right-sided hydronephrosis. Multiple nonobstructive [...] transplanted kidney with moderate right-sided hydronephrosis. Atrophic [place] kidneys with moderate right-sided hydronephrosis. Multiple nonobstructive right renal calculi measuring up to 8 mm. FOLLOW-UP: Follow-up as clinically indicated. Electronically authenticated by: LYNDSAY SAID Date: 2022-05-15 05:04 Normal [facility] Covid-19 PCR (CVDTB)on 04-30 SARS-CoV-2 (COVID-19) RNA ESTELITA+probe Ql (Unsp spec) Not detected Normal NOT DETECTED [facility] Comment on above: Result Comment: When [...] for this test is supported by the [employer] Operator of Health and Human Service's declaration [...] Performed By: #### U RTPCR #### [facility] [address] [place] [address] Dr. Dwight Waters GLUCOSEon 05-15-2022 Glucose [Mass/Vol] 141 mg/dL High 70 - 99 mg/dL [facility] GOLD TOP TUBEon 05-15-[address] [facility] HEPATIC FUNCTION PANELon Albumin [Mass/Vol] 4.3 g/dL 3.5 - 5.0 g/dL [facility] ALP [Catalytic activity/Vol] 85 U/L 32 - 126 U/L [facility] ALT [Catalytic activity/Vol] 13 U/L 10 - 52 U/L [facility] AST [Catalytic activity/Vol] 15 U/L 10 - 39 U/L [facility] Bilirubin [Mass/Vol] 0.8 mg/dL <1.[address] [facility] Bilirubin.direct [Mass/Vol] 0.2 mg/dL <0.[address] [facility] Interpretation and review of laboratory results Normal [facility] Protein [Mass/Vol] 7.3 g/dL 6.4 - 8.3 g/dL [facility] LIPASEon 05-15-2022 Lipase [Catalytic activity/Vol] 8 U/L Low 11 - 82 U/L [facility] No Panel Informationon 05-15 Interpretation and review of laboratory results Abnormal [facility] PROF 14(COMP METB)on 022 Albumin [Mass/Vol] 3.8 g/dL Normal 3.4-5.0 [facility] Comment on above: Performed By: #### U RTPCR #### [facility] [address] [place] [address] Dr. Dwight Waters Albumin/Globulin [Mass ratio] 1.1 {ratio} Normal [facility] Comment on above: Performed By: #### U RTPCR #### [facility] [address] [place] [address] Dr. Dwight Waters ALP [Catalytic activity/Vol] 92 U/L Normal 46-116 [facility] Comment on above: Performed By: #### U RTPCR #### [facility] [address] [place] [address] Dr. Dwight Waters ALT [Catalytic activity/Vol] 25 U/L Normal 16-63 [facility] Comment on above: Performed By: #### U RTPCR #### [facility] [address] [place] [address] Dr. Dwight Waters Anion gap [Moles/Vol] 14.6 mmol/L Normal [facility] Comment on above: Performed By: #### U RTPCR #### [facility] [address] [place] [address] Dr. Dwight Waters AST [Catalytic activity/Vol] 17 U/L Normal 15-37 [facility] Comment on above: Performed By: #### U RTPCR #### [facility] [address] [place] [address] Dr. Dwight Waters Bilirubin [Mass/Vol] 0.6 mg/dL Normal 0.2-1.0 [facility] Comment on above: Performed By: #### U RTPCR #### [facility] [address] [place] [address] Dr. Dwight Waters Calcium [Mass/Vol] 9.9 mg/dL Normal 8.5-10.1 [facility] Comment on above: Performed By: #### U RTPCR #### [facility] [address] [place] [address] Dr. Dwight Waters Chloride [Moles/Vol] 106 mmol/L Normal 98-107 [facility] Comment on above: Performed By: #### U RTPCR #### [facility] [address] [place] [address] Dr. Dwight Waters CO2 [Moles/Vol] 24.2 mmol/L Normal 21.0-32.0 [facility] Comment on above: Performed By: #### U RTPCR #### [facility] [address] [place] [address] Dr. Dwight Waters Creatinine [Mass/Vol] 1.58 mg/dL Critically high 0.70-1.30 [facility] Comment on above: Performed By: #### U RTPCR #### [facility] [address] [place] [address] Dr. Dwight Waters EGFR-AF BHUTANESE 56 mL/min/1.73m2 Critically low >=60 [facility] Comment on above: Performed By: #### U RTPCR #### [facility] [address] [place] [address] Dr. Dwight Waters EGFR-NON AF BHUTANESE 46 mL/min/1.73m2 Critically low >=60 [facility] Comment on above: Performed By: #### U RTPCR #### [facility] [address] [place] [address] Dr. Dwight Waters Globulin (S) [Mass/Vol] 3.5 g/dL Normal [facility] Comment on above: Performed By: #### U RTPCR #### [facility] [address] [place] [address] Dr. Dwight Waters Glucose [Mass/Vol] 162 mg/dL Critically high 74-106 [facility] Comment on above: Performed By: #### U RTPCR #### [facility] [address] [place] [address] Dr. Dwight Waters Potassium [Moles/Vol] 3.8 mmol/L Normal 3.5-5.1 [facility] Comment on above: Performed By: #### U RTPCR #### [facility] [address] [place] [address] Dr. Dwight Waters Protein [Mass/Vol] 7.3 g/dL Normal 6.4-8.2 [facility] Comment on above: Performed By: #### U RTPCR #### [facility] [address] [address] [address] Dwight Waters Sodium [Moles/Vol] 141 mmol/L Normal 136-145 [facility] Comment on above: Performed By: #### U RTPCR #### [facility] [address] [address] [address] Dwight Waters Urea nitrogen [Mass/Vol] 22.0 mg/dL Critically high 7.0-18.0 [facility] Comment on above: Performed By: #### U RTPCR #### [facility] [address] [place] [address] Dr. Dwight Waters Urea nitrogen/Creatinine [Mass ratio] 13.9 mg/mg Normal [facility] Comment on above: Performed By: #### U RTPCR #### [facility] [address] [place] [address] Dr. Dwight Waters Portable XR Chest Viewson [...] IMPRESSION: No acute cardiopulmonary disease [facility] Radiology Study observation (narrative) [facility] Portable XR Chest ViewsOrder ed By: Vladislav Omer on 05-15-[address] [facility] URINE DIPSTICK; REFLEX MICRO SCOPY; REFLEX CULTURE PERFORMABLEon 05-15-2022 Appearance (U) Clear Clear [facility] Color (U) Yellow Yellow [facility] Glucose Test strip (U) [Mass/Vol] 100 mg/dL Abnormal Negative [facility] Interpretation and review of laboratory results Abnormal [facility] Ketones (U) [Mass/Vol] Negative Negative [facility] Leukocyte esterase Test strip Ql (U) Large Abnormal Negative [facility] Nitrite Ql (U) Negative Negative [facility] pH (U) 6.0 [pH] 5.0 - 7.[address] [facility] Protein (U) [Mass/Vol] 100 mg/dL Abnormal Negative [facility] RBC (U) [#/Vol] Large Abnormal Negative [facility] Specific gravity (U) [Rel density] 1.[address] [facility] Urobilinogen (U) [Mass/Vol] 0.2 E.U./dL 0.2 E.U/dL, 1.0 E.U/dL [facility] URINE MICROSCOPIC WITH REFLE X TO CULTUREOrdered By: Rey Bro on 05-15-2022 Bacteria LM Ql (Urine sed) ABSENT ABSENT [facility] Epithelial cells.squamous LM Ql (Urine sed) ABSENT 1/hpf = 1+, 2-5/hpf = 2+, 0/hpf = 0+, ABSENT [facility] Interpretation and review of laboratory results Abnormal [facility] RBC LM.HPF (Urine sed) [#/Area] /[HPF] Abnormal 0 - 2 /HPF [facility] WBC LM.HPF (Urine sed) [#/Area] 10-20 Abnormal 0 - 5 /HPF [facility] CT ABD/PELVIS WO CONon 05-12 CT ABD/PELVIS WO CON Begin Addendum #[address] Lund 3:25 PM EST 05/11/2022. Begin Addendum #2 IMPRESSION below should also contain the followin. 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 The [place] kidneys are progressively atrophic bilaterally compared to [...] of 06/14/2020 are no longer present. The [place] distal right ureter is decompressed beyond this [...] with surgical history for renal graft and [place] right urinary drainage, as a discrete ureteroneocystostomy is not identified, and the graft may be draining via a ureteroureterostomy. Urology consultation recommended. 3. The [place] kidneys are bilaterally atrophic, with right renal sinus calcifications consistent with nonobstructing right [place] renal calculi up to 6 mm. Normal [facility] CBC AUTO DIFFon 05-11-2022 BASO # 0.1 103/ul Normal 0.0-0.1 [facility] Comment on above: Performed By: #### U RTPCR #### [facility] [address] [place] [address] Dr. Dwight Waters Basophils/100 WBC (Bld) 0.8 % Normal 0.2-2.0 [facility] Comment on above: Performed By: #### U RTPCR #### [facility] [address] [place] [address] Dr. Dwight Waters EO # 0.2 103/ul Normal 0.0-0.7 [facility] Comment on above: Performed By: #### U RTPCR #### [facility] [address] [place] [address] Dr. Dwight Waters Eosinophils/100 WBC (Bld) 2.5 % Normal 0.9-7.0 [facility] Comment on above: Performed By: #### U RTPCR #### [facility] [address] [place] [address] Dr. Dwight Waters Erythrocyte distribution width (RBC) [Ratio] 12.5 % Normal 11.0-15.0 [facility] Comment on above: Performed By: #### U RTPCR #### [facility] [address] [place] [address] Dr. Dwight Waters Hematocrit (Bld) [Volume fraction] 48.3 % Normal 42.0-54.0 [facility] Comment on above: Performed By: #### U RTPCR #### [facility] [address] [place] [address] Dr. Dwight Waters Hemoglobin (Bld) [Mass/Vol] 15.3 g/dL Normal 14.0-18.0 [facility] Comment on above: Performed By: #### U RTPCR #### [facility] [address] [place] [address] Dr. Dwight Waters IG # 0.01 10e3/ul Normal 0.00-0.03 [facility] Comment on above: Performed By: #### U RTPCR #### [facility] [address] [place] [address] Dr. Dwight Waters IG % 0.2 % Normal 0.0-0.5 [facility] Comment on above: Performed By: #### U RTPCR #### [facility] [address] [place] [address] Dr. Dwight Waters LYMPH # 1.9 103/ul Normal 1.2-3.8 [facility] Comment on above: Performed By: #### U RTPCR #### [facility] [address] [place] [address] Dr. Dwight Waters Lymphocytes/100 WBC (Bld) 29.8 % Normal 20.5-60.0 [facility] Comment on above: Performed By: #### U RTPCR #### [facility] [address] [place] [address] Dr. Dwight Waters MANUAL DIFF REQ NO Normal [facility] Comment on above: Performed By: #### U RTPCR #### [facility] [address] [place] [address] Dr. Dwight Watesr MCH (RBC) [Entitic mass] 28.2 pg Normal 25.9-34.0 [facility] Comment on above: Performed By: #### U RTPCR #### [facility] [address] [place] [address] Dr. Dwight Waters MCHC (RBC) [Mass/Vol] 31.7 g/dL Normal 29.9-35.2 [facility] Comment on above: Performed By: #### U RTPCR #### [facility] [address] [place] [address] Dr. Dwight Waters MCV (RBC) [Entitic vol] 89.1 fL Normal 80.0-94.0 [facility] Comment on above: Performed By: #### U RTPCR #### [facility] [address] [place] [address] Dr. Dwight Waters MONO # 0.6 103/ul Normal 0.3-0.8 [facility] Comment on above: Performed By: #### U RTPCR #### [facility] [address] [place] [address] Dr. Dwight Waters Monocytes/100 WBC (Bld) 9.0 % Normal 1.7-12.0 [facility] Comment on above: Performed By: #### U RTPCR #### [facility] [address] [place] [address] Dr. Dwight Waters NEUT # 3.6 103/ul Normal 1.4-6.5 [facility] Comment on above: Performed By: #### U RTPCR #### [facility] [address] [place] [address] Dr. Dwight Waters Neutrophils/100 WBC (Bld) 57.7 % Normal 43.0-75.0 [facility] Comment on above: Performed By: #### U RTPCR #### [facility] [address] [place] [address] Dr. Dwight Waters Platelet mean volume (Bld) [Entitic vol] 9.9 fL Normal 9.5-13.5 [facility] Comment on above: Performed By: #### U RTPCR #### [facility] [address] [place] [address] Dr. Dwight Waters PLT 249 103/ul Normal 150-450 [facility] Comment on above: Performed By: #### U RTPCR #### [facility] [address] [place] [address] Dr. Dwight Wtaers RBC 5.42 106/ul Normal 4.70-6.10 [facility] Comment on above: Performed By: #### U RTPCR #### [facility] [address] [place] [address] Dr. Dwight Waters WBC 6.3 103/ul Normal 4.0-11.0 [facility] Comment on above: Performed By: #### U RTPCR #### [facility] [address] [place] [address] Dr. Dwight Waters ER URINE PROFILEon 2 Bilirubin Ql (U) Unable to perform te sting due to color interference. Abnormal NEGATIVE [facility] Comment on above: Performed By: #### U RTPCR #### [facility] [address] [place] [address] Dr. Dwight Waters Clarity (U) TURBID Abnormal CLEAR [facility] Comment on above: Performed By: #### U RTPCR #### [facility] [address] [place] [address] Dr. Dwight Waters Color (U) RED Abnormal YELLOW [facility] Comment on above: Performed By: #### U RTPCR #### [facility] [address] [place] [address] Dr. Dwight Waters ERUAHD A micrscopic examina tion will be performed if indicated. Normal [facility] Comment on above: Performed By: #### U RTPCR #### [facility] [address] [place] [address] Dr. Dwight Waters Glucose Ql (U) Unable to perform te sting due to color interference. Abnormal NEGATIVE [facility] Comment on above: Performed By: #### U RTPCR #### [facility] [address] [place] [address] Dr. Dwight Waters Hemoglobin Ql (U) Unable to perform te sting due to color interference. Abnormal NEGATIVE [facility] Comment on above: Performed By: #### U RTPCR #### [facility] [address] [place] [address] Dr. Dwight Waters Ketones Ql (U) Unable to perform te sting due to color interference. Abnormal NEGATIVE [facility] Comment on above: Performed By: #### U RTPCR #### [facility] [address] [place] [address] Dr. Dwight Waters LEUKOCYTES Unable to perform te sting due to color interference. Abnormal NEGATIVE [facility] Comment on above: Performed By: #### U RTPCR #### [facility] [address] [place] [address] Dr. Dwight Waters Nitrite Ql (U) Unable to perform te sting due to color interference. Abnormal NEGATIVE [facility] Comment on above: Performed By: #### U RTPCR #### [facility] [address] [place] [address] Dr. Dwight Waters pH (U) 6.5 [pH] Normal 5-9 [facility] Comment on above: Performed By: #### U RTPCR #### [facility] [address] [place] [address] Dr. Dwight Waters SPEC GRAVITY 1.020 Normal 1.005-<=1.02 5 [facility] Comment on above: Performed By: #### U RTPCR #### [facility] [address] [place] [address] Dr. Dwight Waters UA PROTEIN Unable to perform te sting due to color interference. Normal NEGATIVE/ TRACE [facility] Comment on above: Performed By: #### U RTPCR #### [facility] [address] [place] [address] Dr. Dwight Waters UR MICRO IND INDICATED Normal [facility] Comment on above: Performed By: #### U RTPCR #### [facility] [address] [place] [address] Dr. Dwight Waters UROBILINOGEN Unable to perform te sting due to color interference. Normal 0.2 - 1.0 [facility] Comment on above: Performed By: #### U RTPCR #### [facility] [address] [place] [address] Dr. Dwight Waters PROF 14(COMP METB)on 022 Albumin [Mass/Vol] 3.8 g/dL Normal 3.4-5.0 [facility] Comment on above: Performed By: #### C MP #### [facility] [address] [place] [address] Dr. Dwight Waters Albumin/Globulin [Mass ratio] 1.1 {ratio} Normal [facility] Comment on above: Performed By: #### C MP #### [facility] [address] [place] [address] Dr. Dwight Waters ALP [Catalytic activity/Vol] 106 U/L Normal 46-116 [facility] Comment on above: Performed By: #### C MP #### [facility] [address] [place] [address] Dr. Dwight Waters ALT [Catalytic activity/Vol] 30 U/L Normal 16-63 [facility] Comment on above: Performed By: #### C MP #### [facility] [address] [place] [address] Dr. Dwight Waters Anion gap [Moles/Vol] 11.7 mmol/L Normal [facility] Comment on above: Performed By: #### C MP #### [facility] [address] [place] [address] Dr. Dwight Waters AST [Catalytic activity/Vol] 16 U/L Normal 15-37 [facility] Comment on above: Performed By: #### C MP #### [facility] [address] [place] [address] Dr. Dwight Waters Bilirubin [Mass/Vol] 0.6 mg/dL Normal 0.2-1.0 [facility] Comment on above: Performed By: #### C MP #### [facility] [address] [place] [address] Dr. Dwight Waters Calcium [Mass/Vol] 9.1 mg/dL Normal 8.5-10.1 [facility] Comment on above: Performed By: #### C MP #### [facility] [address] [place] [address] Dr. Dwight Waters CO2 [Moles/Vol] 27.4 mmol/L Normal 21.0-32.0 [facility] Comment on above: Performed By: #### C MP #### [facility] [address] [place] [address] Dr. Dwight Waters Creatinine [Mass/Vol] 1.18 mg/dL Normal 0.70-1.30 [facility] Comment on above: Performed By: #### C MP #### [facility] [address] [address] [address] Dwight Waters EGFR-AF BHUTANESE >60 Normal >=60 [facility] Comment on above: Performed By: #### C MP #### [facility] [address] [place] [address] Dr. Dwight Waters EGFR-NON AF BHUTANESE >60 Normal >=60 [facility] Comment on above: Performed By: #### C MP #### [facility] [address] [place] [address] Dr. Dwight Waters Globulin (S) [Mass/Vol] 3.6 g/dL Normal [facility] Comment on above: Performed By: #### C MP #### [facility] [address] [place] [address] Dr. Dwight Waters Glucose [Mass/Vol] 192 mg/dL Critically high 74-106 [facility] Comment on above: Performed By: #### C MP #### [facility] [address] [place] [address] Dr. Dwight Waters Potassium [Moles/Vol] 4.1 mmol/L Normal 3.5-5.1 [facility] Comment on above: Performed By: #### C MP #### [facility] [address] [place] [address] Dr. Dwight Waters Protein [Mass/Vol] 7.4 g/dL Normal 6.4-8.2 [facility] Comment on above: Performed By: #### C MP #### [facility] [address] [place] [address] Dr. Dwight Waters Sodium [Moles/Vol] 142 mmol/L Normal 136-145 [facility] Comment on above: Performed By: #### C MP #### [facility] [address] [place] [address] Dr. Dwight Waters Urea nitrogen [Mass/Vol] 17.0 mg/dL Normal 7.0-18.0 [facility] Comment on above: Performed By: #### C MP #### [facility] [address] [place] [address] Dr. Dwight Waters Urea nitrogen/Creatinine [Mass ratio] 14.4 mg/mg Normal [facility] Comment on above: Performed By: #### C MP #### [facility] [address] [place] [address] Dr. Dwight Waters URINE MICROSCOPIC ONLYon BACTERIA NONE SEEN Normal NONE SEEN [facility] Comment on above: Performed By: #### U RTPCR #### [facility] [address] [place] [address] Dr. Dwight Waters Bacteria identified Cx Nom (U) NOT INDICATED Normal [facility] Comment on above: Performed By: #### U RTPCR #### [facility] [address] [place] [address] Dr. Dwight Waters CAST NONE SEEN Normal NONE SEEN [facility] Comment on above: Performed By: #### U RTPCR #### [facility] [address] [place] [address] Dr. Dwight Waters Crystals LM Nom (Urine sed) NONE SEEN Normal NONE SEEN [facility] Comment on above: Performed By: #### U RTPCR #### [facility] [address] [place] [address] Dr. Dwight Waters Epithelial cells LM Ql (Urine sed) RARE Normal NONE SEEN /RARE [facility] Comment on above: Performed By: #### U RTPCR #### [facility] [address] [place] [address] Dr. Dwight Waters MUCOUS NONE SEEN Normal NONE SEEN [facility] Comment on above: Performed By: #### U RTPCR #### [facility] [address] [place] [address] Dr. Dwight Waters RBC (U) [#/Vol] /uL Abnormal 0-2 [facility] Comment on above: Performed By: #### U RTPCR #### [facility] [address] [address] [address] Dwight Waters WBC NONE SEEN Normal NONE SEEN [facility] Comment on above: Performed By: #### U RTPCR #### [facility] [id number] Dwihgt Waters K (Potassium)on 01-06-2020 Potassium [Moles/Vol] 4.4 mmol/L Normal 3.7-5.3 [facility] Comment on above: Performed By: #### K #### [facility] [address] [place] [address] [employer]: Kehinde Woodward MD Potassiumon 01-06-2020 Potassium [Moles/Vol] 4.4 mmol/L 3.7 - 5.3 mmol/L [facility] Work Phone: Hemoglobin and Hematocrit, B loodon 10-24-2019 Hematocrit (Bld) [Volume fraction] 23.6 % Low 40.7 - 50.3 % [place], [place] Hemoglobin (Bld) [Mass/Vol] 7.3 g/dL Low 13 - 17 g/dL [place] Interpretation and review of laboratory results Abnormal [place] Hgb/Hcton 10-24-2019 Hematocrit (Bld) [Volume fraction] 23.6 % Low 40.7-50.3 [facility] Comment on above: Performed By: #### H H #### [facility] [address] [place] [address] [employer]: Kehinde Woodward MD Hemoglobin (Bld) [Mass/Vol] 7.3 g/dL Low 13.0-17.0 [facility] Comment on above: Performed By: #### H H #### [facility] [address] [place] [address] [employer]: Kehinde Woodward MD Hemoglobinon 08-27-2019 Hemoglobin (Bld) [Mass/Vol] 7.5 g/dL Low 13.0-17.0 [facility] Comment on above: Performed By: #### H GB #### [facility] [address] [place] [address] [employer]: Kehinde Woodward MD Hemoglobin (Bld) [Mass/Vol] 7.5 g/dL Low 13 - 17 g/dL [place] Interpretation and review of laboratory results Abnormal [place] Hemoglobinon 08-08-2019 Hemoglobin (Bld) [Mass/Vol] 8.3 g/dL Low 13.0-17.0 [facility] Comment on above: Performed By: #### H GB #### [facility] [address] [place] [address] [employer]: Kehinde Woodward MD Hemoglobin (Bld) [Mass/Vol] 8.3 g/dL Low 13 - 17 g/dL [place] Interpretation and review of laboratory results Abnormal [place] Hemoglobinon 08-04-2019 Hemoglobin (Bld) [Mass/Vol] 8.0 g/dL Low 13.0-17.0 [facility] Comment on above: Performed By: #### H GB #### [facility] [address] [place] [address] [employer]: Kehinde Woodward MD Hemoglobin A1Con 08-03-2019 HbA1c (Bld) [Mass fraction] % Low 4.8-5.9 [facility] Comment on above: Result Comment: The ADA and AACC recommend providing the estimated average glucose result to permit better patient understanding of their HBA1c result. Performed By: #### G LYHGB #### [facility] [address] [place] [address] [employer]: Kehinde Woodward MD Glucose [Mass/Vol] mg/dL mg/dL [place] Comment on above: The ADA and AACC rec ommend providing the estimated average glucose result to permit better patient understanding of their HBA1c result. HbA1c (Bld) [Mass fraction] % Low 4.8 - 5.9 % [place] Interpretation and review of laboratory results Abnormal [place] Hemoglobinon 08-01-2019 Hemoglobin (Bld) [Mass/Vol] 8.1 g/dL Low 13.0-17.0 [facility] Comment on above: Performed By: #### H GB #### [facility] [address] [place] [id number] [employer]: Kehinde Woodward MD Hemoglobin (Bld) [Mass/Vol] 8.1 g/dL Low 13 - 17 g/dL [place] Interpretation and review of laboratory results Abnormal [place] Hgb/Hcton 06-10-2019 Hematocrit (Bld) [Volume fraction] 24.3 % Low 40.7-50.3 [facility] Comment on above: Performed By: #### H H #### [facility] [address] [place] [address] [employer]: Kehinde Woodward MD Hemoglobin (Bld) [Mass/Vol] 7.4 g/dL Low 13.0-17.0 [facility] Comment on above: Performed By: #### H H #### [address] [place] [address] [employer]: Kehinde Woodward MD Hemoglobinon 06-01-2019 Hemoglobin (Bld) [Mass/Vol] 7.2 g/dL Low 13.0-17.0 [facility] Comment on above: Performed By: #### H GB #### [facility] [address] [place] [address] [employer]: Kehinde Woodward MD K (Potassium)on 01-14-2019 Potassium [Moles/Vol] 3.6 mmol/L Low 3.7-5.3 [facility] Comment on above: Performed By: #### K #### [facility] [address] [place] [address] [employer]: Kehinde Woodward MD Otheron 10-19-2018 IMPRESSION: 1. [...] Amitriptyline(50), Amphetamine(250), Atenolol(500), Barbiturates(1000), Benzoylecgonine(50), Buprenorphine(50), Bupropion(25), Caffeine(03534), Chlordiazepoxide(50), Chlorpheniramine(100), Chlorpromazine(50), Citalopram(100), Clonazepam(200), Cocaine(25), Codeine(200), [...] Shira LOUIS, [facility] TOXICOLOGY SCREEN URINE - [facility] [place] 10-12-2018 Drugs identified Screen Nom (U) For Medical Purposes Only, Non-forensic, screen results are presumptive. No confirmatory testing will follow. Invalid Interpretation Shira LOUIS OSLucius Comment on above: This Liquid Chromato graphy [...] Amitriptyline(50), Amphetamine(250), Atenolol(500), Barbiturates(200), Benzoylecgonine(50), Buprenorphine(500), Bupropion(25), Caffeine(91456), Cannabinoids(THC)(50), Chlordiazepoxide(50), Chlorpheniramine(100), Chlorpromazine(50), Citalopram(100), Clonazepam(200), Cocaine(25), [...] Time Vital Sign Value Performing Clinician Facility 01-03-2025 11:01-0500 Diastolic blood pressure 88 mm[Hg] Steph Almodovar [facility] 01-03-2025 11:01-0500 Heart rate 67 /min Steph Orzech [facility] 01-03-2025 11:01-0500 Respiratory rate 16 /min Steph Orzech [facility] 01-03-2025 11:01-0500 Systolic blood pressure 124 mm[Hg] Steph Orzech [facility] 12-26-2024 09:32-0500 Diastolic blood pressure 71 mm[Hg] Zuly Aichholz Work Phone: [facility] 12-26-2024 09:32-0500 Heart rate 62 /min Zuly Aichholz Work Phone: [facility] 12-26-2024 09:32-0500 Respiratory rate 16 /min Zuly Aichholz Work Phone: [facility] 12-26-2024 09:32-0500 SaO2% (BldA) [Mass fraction] 95 % Zuly Aichholz Work Phone: [facility] 12-26-2024 09:32-0500 Systolic blood pressure 105 mm[Hg] Zuly Aichholz Work Phone: [facility] 12-26-2024 06:58-0500 Body height 170.18 cm Zuly Aichholz Work Phone: [facility] 12-26-2024 06:58-0500 Body weight 89.35 kg Zuly Aichholz Work Phone: [facility] 12-15-2024 09:15-0500 Body height 170.18 cm [facility] 12-15-2024 09:15-0500 Body mass index (BMI) [Ratio] 30.8 kg/m2 [facility] 12-15-2024 09:15-0500 Body weight 89.35 kg [facility] 12-15-2024 09:15-0500 Diastolic blood pressure 72 mm[Hg] [facility] 12-15-2024 09:15-0500 Heart rate 82 /min [facility] 12-15-2024 09:15-0500 Systolic blood pressure 126 mm[Hg] [facility] 11-22-2024 09:35-0500 Diastolic blood pressure 95 mm[Hg] Steph Orzech [facility] 11-22-2024 09:35-0500 Heart rate 68 /min Steph Orzech [facility] 11-22-2024 09:35-0500 Systolic blood pressure 135 mm[Hg] Steph Orzech [facility] 11-07-2024 14:29-0500 Body height 170.2 cm Zuly Kiana INSURANCE INSPECTOR Work Phone: [facility] 11-07-2024 14:29-0500 Body mass index (BMI) [Ratio] 31.83 kg/m2 Zuly Marissaz INSURANCE INSPECTOR Work Phone: [facility] 11-07-2024 14:29-0500 Body temperature 98.2 [degF] Zuly Kiana INSURANCE INSPECTOR Work Phone: [facility] 11-07-2024 14:29-0500 Body weight 92.17 kg Zuly Marissaz INSURANCE INSPECTOR Work Phone: [facility] 11-07-2024 14:29-0500 Diastolic blood pressure 86 mm[Hg] Zuly Marissaz INSURANCE INSPECTOR Work Phone: [facility] 11-07-2024 14:29-0500 Heart rate 63 /min Zuly Marissaz INSURANCE INSPECTOR Work Phone: [facility] 11-07-2024 14:29-0500 Respiratory rate 18 /min Zuly Bruno INSURANCE INSPECTOR Work Phone: [facility] 11-07-2024 14:29-0500 SaO2% (BldA) [Mass fraction] 96 % Zuly Bruno INSURANCE INSPECTOR Work Phone: [facility] 11-07-2024 14:29-0500 Systolic blood pressure 128 mm[Hg] Zuly Bruno INSURANCE INSPECTOR Work Phone: [facility] 09-08-2024 13:40-0400 Blood Pressure Location Clementina Galea [facility] 09-08-2024 13:40-0400 Diastolic blood pressure 90 mm[Hg] Clementina Galea [facility] 09-08-2024 13:40-0400 Heart rate 66 /min Clementina Galea [facility] 09-08-2024 13:40-0400 Systolic blood pressure 144 mm[Hg] Clementina Galea [facility] 08-23-2024 08:45-0400 Body height 170.2 cm Zuly Bruno INSURANCE INSPECTOR Work Phone: [facility] 08-23-2024 08:45-0400 Body mass index (BMI) [Ratio] 30.26 kg/m2 Zuly Bruno INSURANCE INSPECTOR Work Phone: [facility] 08-23-2024 08:45-0400 Body temperature 98.01 [degF] Zuly Bruno INSURANCE INSPECTOR Work Phone: [facility] 08-23-2024 08:45-0400 Body weight 87.64 kg Zuly Bruno INSURANCE INSPECTOR Work Phone: [facility] 08-23-2024 08:45-0400 Diastolic blood pressure 80 mm[Hg] Zuly Bruno INSURANCE INSPECTOR Work Phone: [facility] 08-23-2024 08:45-0400 Heart rate 61 /min Zuly Bruno INSURANCE INSPECTOR Work Phone: [facility] 08-23-2024 08:45-0400 Respiratory rate 18 /min Zuly Bruno INSURANCE INSPECTOR Work Phone: [facility] 08-23-2024 08:45-0400 SaO2% (BldA) [Mass fraction] 96 % Zuly Bruno INSURANCE INSPECTOR Work Phone: [facility] 08-23-2024 08:45-0400 Systolic blood pressure 132 mm[Hg] Zuly Bruno INSURANCE INSPECTOR Work Phone: [facility] 06-17-2024 08:37-0400 Body mass index (BMI) [Ratio] 29.43 kg/m2 Rebeca Gutierrez SOCIAL SERVICE ASSISTANT-TRAILHEAD MAINTENANCE WORKER Work Phone: [facility] 06-17-2024 08:37-0400 Body temperature 97.39 [degF] Rebeca Gutierrez SOCIAL SERVICE ASSISTANT-TRAILHEAD MAINTENANCE WORKER Work Phone: [facility] 06-17-2024 08:37-0400 Body weight 85.23 kg Rebeca Gutierrez SOCIAL SERVICE ASSISTANT-TRAILHEAD MAINTENANCE WORKER Work Phone: [facility] 06-17-2024 08:37-0400 Diastolic blood pressure 75 mm[Hg] Rebeca Gutierrez SOCIAL SERVICE ASSISTANT-TRAILHEAD MAINTENANCE WORKER Work Phone: [facility] 06-17-2024 08:37-0400 Heart rate 53 /min Rebeca Gutierrez SOCIAL SERVICE ASSISTANT-TRAILHEAD MAINTENANCE WORKER Work Phone: [facility] 06-17-2024 08:37-0400 Systolic blood pressure 143 mm[Hg] Rebeca Gutierrez SOCIAL SERVICE ASSISTANT-TRAILHEAD MAINTENANCE WORKER Work Phone: [facility] 06-17-2024 08:36-0400 Body mass index (BMI) [Ratio] 29.43 kg/m2 Daisha Sobotka DO Work Phone: [facility] 06-17-2024 08:36-0400 Body temperature 97.39 [degF] Daisha Sobotka DO Work Phone: [facility] 06-17-2024 08:36-0400 Body weight 85.23 kg Daisha Sobotcarl DO Work Phone: [facility] 06-17-2024 08:36-0400 Diastolic blood pressure 75 mm[Hg] Daisha Sobotka DO Work Phone: [facility] 06-17-2024 08:36-0400 Heart rate 53 /min Daisha Mtzka DO Work Phone: [facility] 06-17-2024 08:36-0400 Systolic blood pressure 143 mm[Hg] Daisha Max DO Work Phone: [facility] 02-26-2024 09:07-0400 Diastolic blood pressure 56 mm[Hg] Candie Almaguer MD Work Phone: [facility] 02-26-2024 09:07-0400 Heart rate 65 /min Candie Almaguer MD Work Phone: [facility] 02-26-2024 09:07-0400 Systolic blood pressure 113 mm[Hg] Candie Almaguer MD Work Phone: [facility] 02-26-2024 09:06-0400 Body height 170.2 cm Candie Almaguer MD Work Phone: [facility] 02-26-2024 09:06-0400 Body mass index (BMI) [Ratio] 28.9 kg/m2 Candie Almaguer MD Work Phone: [facility] 02-26-2024 09:06-0400 Body weight 83.69 kg Candie Almaguer MD Work Phone: [facility] 02-26-2024 09:06-0400 Respiratory rate 20 /min Candie Almaguer MD Work Phone: [facility] 02-26-2024 09:06-0400 SaO2% (BldA) [Mass fraction] 97 % Candie Almaguer MD Work Phone: [facility] 01-23-2024 15:04-0500 Body temperature 97.9 [degF] Reese Sage MD Work Phone: [facility] 01-23-2024 15:04-0500 Diastolic blood pressure 67 mm[Hg] Reese Sage MD Work Phone: [facility] 01-23-2024 15:04-0500 Heart rate 51 /min Reese Sage MD Work Phone: [facility] 01-23-2024 15:04-0500 Respiratory rate 16 /min Reese Sage MD Work Phone: [facility] 01-23-2024 15:04-0500 SaO2% (BldA) [Mass fraction] 94 % Reese Sage MD Work Phone: [facility] 01-23-2024 15:04-0500 Systolic blood pressure 151 mm[Hg] Reese Sage MD Work Phone: [facility] 01-23-2024 10:46-0500 Body mass index (BMI) [Ratio] 30.94 kg/m2 Reese Sage MD Work Phone: [facility] 01-23-2024 10:46-0500 Body weight 89.6 kg Reese Sage MD Work Phone: [facility] 01-18-2024 11:21-0500 Body height 170.2 cm Reese Sage MD Work Phone: [facility] 01-06-2024 09:04-0500 Body height 170.2 cm Zuly Kiana INSURANCE INSPECTOR Work Phone: [facility] 01-06-2024 09:04-0500 Body mass index (BMI) [Ratio] 32.42 kg/m2 Zuly Brianholz INSURANCE INSPECTOR Work Phone: [facility] 01-06-2024 09:04-0500 Body temperature 97.81 [degF] Zuly Lexiehholz INSURANCE INSPECTOR Work Phone: [facility] 01-06-2024 09:04-0500 Body weight 93.89 kg Zuly Marissaz INSURANCE INSPECTOR Work Phone: [facility] 01-06-2024 09:04-0500 Diastolic blood pressure 70 mm[Hg] Zuly Brianholz INSURANCE INSPECTOR Work Phone: [facility] 01-06-2024 09:04-0500 Heart rate 95 /min Zuly Lexiehholz INSURANCE INSPECTOR Work Phone: [facility] 01-06-2024 09:04-0500 Respiratory rate 17 /min Zuly Brianholz INSURANCE INSPECTOR Work Phone: [facility] 01-06-2024 09:04-0500 SaO2% (BldA) [Mass fraction] 99 % Zuly Marissaz INSURANCE INSPECTOR Work Phone: [facility] 01-06-2024 09:04-0500 Systolic blood pressure 138 mm[Hg] Zuly Lexiehholz INSURANCE INSPECTOR Work Phone: [facility] 09-11-2023 10:31-0400 Body temperature 97.81 [degF] Steve LEIGH Work Phone: [facility] 09-11-2023 10:31-0400 Diastolic blood pressure 66 mm[Hg] Steve LEIGH Work Phone: [facility] 09-11-2023 10:31-0400 Heart rate 70 /min Steve Tammy MBBS Work Phone: [facility] 09-11-2023 10:31-0400 Respiratory rate 20 /min Steve Tammy MBBS Work Phone: [facility] 09-11-2023 10:31-0400 SaO2% (BldA) [Mass fraction] 91 % Steve Tammy MBBS Work Phone: [facility] 09-11-2023 10:31-0400 Systolic blood pressure 129 mm[Hg] Steve Tammy MBBS Work Phone: [facility] 09-10-2023 15:50-0400 Body mass index (BMI) [Ratio] 31.99 kg/m2 Steve Tammy MBBS Work Phone: [facility] 09-10-2023 15:50-0400 Body weight 92.67 kg Steve Tammy MBBS Work Phone: [facility] 09-02-2023 07:32-0400 Body height 170.2 cm Steve Tammy MBBS Work Phone: [facility] 08-28-2023 13:33-0400 Body height 170.2 cm Steve Tammy MBBS Work Phone: [facility] 08-28-2023 13:33-0400 Body mass index (BMI) [Ratio] 32.12 kg/m2 Steve Tammy MBBS Work Phone: [facility] 08-28-2023 13:33-0400 Body temperature 97.3 [degF] Steve Tammy MBBS Work Phone: [facility] 08-28-2023 13:33-0400 Body weight 93.03 kg Steve Tammy MBBS Work Phone: [facility] 08-28-2023 13:33-0400 Diastolic blood pressure 41 mm[Hg] Steve Farrari MBBS Work Phone: [facility] 08-28-2023 13:33-0400 Heart rate 116 /min Steve Farrari MBBS Work Phone: [facility] 08-28-2023 13:33-0400 Systolic blood pressure 106 mm[Hg] Steve Farrari MBBS Work Phone: [facility] 06-12-2023 14:50-0400 Body mass index (BMI) [Ratio] 33.8 kg/m2 Rebeca Gutierrez SOCIAL SERVICE ASSISTANT-TRAILHEAD MAINTENANCE WORKER Work Phone: [facility] 06-12-2023 14:50-0400 Body temperature 97.3 [degF] Rebeca Gutierrez SOCIAL SERVICE ASSISTANT-TRAILHEAD MAINTENANCE WORKER Work Phone: [facility] 06-12-2023 14:50-0400 Body weight 97.89 kg Rebeca Gutierrez SOCIAL SERVICE ASSISTANT-TRAILHEAD MAINTENANCE WORKER Work Phone: [facility] 06-12-2023 14:50-0400 Diastolic blood pressure 77 mm[Hg] Rebeca Gutierrez SOCIAL SERVICE ASSISTANT-TRAILHEAD MAINTENANCE WORKER Work Phone: [facility] 06-12-2023 14:50-0400 Heart rate 76 /min Rebeca Gutierrez SOCIAL SERVICE ASSISTANT-TRAILHEAD MAINTENANCE WORKER Work Phone: [facility] 06-12-2023 14:50-0400 Systolic blood pressure 146 mm[Hg] Rebeca Gutierrez SOCIAL SERVICE ASSISTANT-TRAILHEAD MAINTENANCE WORKER Work Phone: [facility] 01-16-2023 08:57-0500 Body height 170.2 cm [facility] Work Phone: [facility] 01-16-2023 08:57-0500 Body mass index (BMI) [Ratio] 33.66 kg/m2 [facility] Work Phone: [facility] 01-16-2023 08:57-0500 Body temperature 97.3 [degF] [facility] Work Phone: [facility] 01-16-2023 08:57-0500 Body weight 97.48 kg [facility] Work Phone: [facility] 01-16-2023 08:57-0500 Diastolic blood pressure 75 mm[Hg] [facility] Work Phone: [facility] 01-16-2023 08:57-0500 Heart rate 76 /min [facility] Work Phone: [facility] 01-16-2023 08:57-0500 Systolic blood pressure 142 mm[Hg] [facility] Work Phone: [facility] 09-10-2022 09:38-0400 Body height 170.2 cm Ryan Yepez MD Work Phone: [facility] 09-10-2022 09:38-0400 Body mass index (BMI) [Ratio] 33.67 kg/m2 Ryan Yepez MD Work Phone: [facility] 09-10-2022 09:38-0400 Body weight 97.52 kg Ryan Yepez MD Work Phone: [facility] 09-10-2022 09:38-0400 Diastolic blood pressure 83 mm[Hg] Ryan Yepez MD Work Phone: [facility] 09-10-2022 09:38-0400 Heart rate 64 /min Ryan Yepez MD Work Phone: [facility] 09-10-2022 09:38-0400 SaO2% (BldA) [Mass fraction] 96 % Ryan Yepez MD Work Phone: [facility] 09-10-2022 09:38-0400 Systolic blood pressure 129 mm[Hg] Ryan Yepez MD Work Phone: [facility] 07-07-2022 13:48-0400 Diastolic blood pressure 76 mm[Hg] Ryan Yepez MD Work Phone: [facility] 07-07-2022 13:48-0400 Heart rate 82 /min Ryan Yepez MD Work Phone: [facility] 07-07-2022 13:48-0400 SaO2% (BldA) [Mass fraction] 96 % Ryan Yepez MD Work Phone: [facility] 07-07-2022 13:48-0400 Systolic blood pressure 141 mm[Hg] Ryan Yepez MD Work Phone: [facility] 06-27-2022 13:32-0400 Body height 170.2 cm Ryan Yepez MD Work Phone: [facility] 06-27-2022 13:32-0400 Body mass index (BMI) [Ratio] 34.24 kg/m2 Ryan Yepez MD Work Phone: [facility] 06-27-2022 13:32-0400 Body temperature 98.6 [degF] Ryan Yepez MD Work Phone: [facility] 06-27-2022 13:32-0400 Body weight 99.16 kg Ryan Yepez MD Work Phone: [facility] 06-27-2022 13:32-0400 Diastolic blood pressure 78 mm[Hg] Ryan Yepez MD Work Phone: [facility] 06-27-2022 13:32-0400 Heart rate 77 /min Ryan Yepez MD Work Phone: [facility] 06-27-2022 13:32-0400 SaO2% (BldA) [Mass fraction] 95 % Ryan Yepez MD Work Phone: [facility] 06-27-2022 13:32-0400 Systolic blood pressure 121 mm[Hg] Ryan Yepez MD Work Phone: [facility] 06-27-2022 10:52-0400 Body height 170.2 cm Rena Brewster RN [facility] 06-27-2022 10:52-0400 Body mass index (BMI) [Ratio] 34.46 kg/m2 Rena Brewster RN [facility] 06-27-2022 10:52-0400 Body temperature 98.2 [degF] Rena Brewster RN [facility] 06-27-2022 10:52-0400 Body weight 99.79 kg Rena Brewster RN [facility] 06-27-2022 10:52-0400 Diastolic blood pressure 73 mm[Hg] Rena Brewster RN [facility] 06-27-2022 10:52-0400 Heart rate 78 /min Rena Brewster RN [facility] 06-27-2022 10:52-0400 Respiratory rate 20 /min Rena Brewster RN [facility] 06-27-2022 10:52-0400 SaO2% (BldA) [Mass fraction] 97 % Rena Brewster RN [facility] 06-27-2022 10:52-0400 Systolic blood pressure 135 mm[Hg] Rena Brewster RN [facility] 06-12-2022 14:23-0400 Body mass index (BMI) [Ratio] 34.59 kg/m2 Steve LEIGH Work Phone: [facility] 06-12-2022 14:23-0400 Body temperature 97 [degF] Steve Tammy MBBS Work Phone: [facility] 06-12-2022 14:23-0400 Body weight 100.2 kg Steve Munoz MBBS Work Phone: [facility] 06-12-2022 14:23-0400 Diastolic blood pressure 66 mm[Hg] Steve Munoz MBBS Work Phone: [facility] 06-12-2022 14:23-0400 Heart rate 63 /min Steve Munoz MBBS Work Phone: [facility] 06-12-2022 14:23-0400 Systolic blood pressure 133 mm[Hg] Steve Munoz MBBS Work Phone: [facility] 05-20-2022 15:21-0400 Body temperature 97.9 [degF] Gian Villatoro MD Work Phone: [facility] 05-20-2022 15:21-0400 Diastolic blood pressure 64 mm[Hg] Gian Villatoro MD Work Phone: [facility] 05-20-2022 15:21-0400 Heart rate 55 /min Gian Villatoro MD Work Phone: [facility] 05-20-2022 15:21-0400 Respiratory rate 15 /min Gian Villatoro MD Work Phone: [facility] 05-20-2022 15:21-0400 SaO2% (BldA) [Mass fraction] 95 % Gian Villatoro MD Work Phone: [facility] 05-20-2022 15:21-0400 Systolic blood pressure 145 mm[Hg] Gian Villatoro MD Work Phone: [facility] 05-19-2022 12:15-0400 Body mass index (BMI) [Ratio] 35.87 kg/m2 Gian Villatoro MD Work Phone: [facility] 05-19-2022 12:15-0400 Body weight 103.92 kg Gian Villatoro MD Work Phone: [facility] Comment on above: standing scale 05-16-2022 16:19-0400 Body height 170.2 cm Gian Villatoro MD Work Phone: [facility] 10-19-2018 08:44-0500 BMI (Body Mass Index) 26.58 kg/m2 [facility] Work Phone: 10-19-2018 08:44-0500 BP Diastolic 76 mm[Hg] [facility] Work Phone: 10-19-2018 08:44-0500 BP Systolic 144 mm[Hg] [facility] Work Phone: 10-19-2018 08:44-0500 Height 172.7 cm [facility] Work Phone: 10-19-2018 08:44-0500 Pulse (Heart Rate) 92 /min [facility] Work Phone: 10-19-2018 08:44-0500 Pulse Oximetry 99 % [facility] Work Phone: 10-19-2018 08:44-0500 Respiratory Rate 16 /min [facility] Work Phone: 10-19-2018 08:44-0500 Weight 79.29 kg [facility] Work Phone: 10-12-2018 09:50-0500 BMI (Body Mass Index) 27.24 kg/m2 Alfredito Restrepo [facility] Work Phone: 10-12-2018 09:50-0500 Body Temperature 98.6 [degF] [facility] Work Phone: 10-12-2018 09:50-0500 BP Diastolic 80 mm[Hg] [facility] Work Phone: 10-12-2018 09:50-0500 BP Systolic 157 mm[Hg] [facility] Work Phone: 10-12-2018 09:50-0500 Height 169.5 cm [facility] Work Phone: 10-12-2018 09:50-0500 Pulse (Heart Rate) 94 /min [facility] Work Phone: 10-12-2018 09:50-0500 Weight 78.29 kg [facility] Work Phone: Encounters Encounter Date Encounter Type Care Provider Facility Start: 03-09-2025 ambulatory Steph X Orzech Facilit y:[facility] Start: 01-23-2025 ambulatory ZULY BRUNO Facility: [facility] Start: 01-13-2025 End: 01-13-2025 Orders Only Zuly Bruno INSURANCE INSPECTOR Work Phone: [facility] Comment on above: Other osteoporosis w ithout current pathological fracture (CMS/HCC) (Primary Dx); Liver transplant status (CMS/HCC); Organ transplant Start: 01-05-2025 End: 01-06-2025 Refill Zuly Bruno INSURANCE INSPECTOR Work Phone: [facility] Comment on above: Other polyneuropathy Start: 01-03-2025 End: 01-03-2025 ambulatory Steph X Orzech Facility:[facility] Start: 01-03-2025 End: 01-03-2025 Patient encounter procedure Steph X Orzech [facility] Start: 12-28-2024 End: 12-28-2024 Clinisync Result Encounter Generic External Data Provider [facility] External [facility] Unsolicited Start: 12-28-2024 End: 12-28-2024 Clinisync Result Encounter Generic External Data Provider [facility] External [facility] Unsolicited Start: 12-26-2024 Non-patient / Non-visit Zuly olmedo Work Phone: [facility] Work Phone: Start: 12-26-2024 End: 12-26-2024 Admission to same day surgery center Zuly Kiana Work Phone: [facility] Work Phone: Start: 12-26-2024 End: 12-26-2024 ambulatory Zuly Magalie Bruno Work Phone: [facility] Work Phone: Start: 12-23-2024 End: 12-23-2024 Refill Zuly Kiana INSURANCE INSPECTOR Work Phone: [facility] Start: 12-15-2024 End: 12-15-[address] [facility] Work Phone: Start: 12-15-2024 End: 12-15-2024 Patient encounter procedure [facility] Work Phone: Start: 11-22-2024 End: 11-22-2024 ambulatory [facility]ph X [facility]zech [facility] [place] [facility] Start: 11-22-2024 End: 11-22-2024 Patient encounter procedure Steph X Orzech [facility] Start: 11-21-2024 End: 11-21-2024 Clinisync Result Encounter Generic External Data Provider [facility] External Department Unsolicited Start: 11-21-2024 End: 11-21-2024 Clinisync Result Encounter Generic External Data Provider [facility] External Department Unsolicited Start: 11-07-2024 End: 11-07-2024 Office outpatient visit 25 minutes Zuly Bruno INSURANCE INSPECTOR Work Phone: [facility] Comment on above: Primary hypertension (CMS/HCC) (Primary Dx); Immunodeficiency, unspecified (CMS/HCC); Liver transplant status (CMS/HCC); Portal hypertension (CMS/HCC); Obesity (BMI 30-39.9); Other osteoporosis without current pathological fracture ([facility]/HCC); Kidney stones Start: 11-07-2024 End: 11-07-2024 ambulatory [...] Bolton RPh,PharmD Pharmacy Outpatient RX [facility] Start: 10-29-2024 End: 10-29-2024 Refill Zuly Bruno INSURANCE INSPECTOR Work Phone: [facility] Comment on [...] Start: 09-08-2024 End: 09-08-2024 ambulatory ZULY BRUNO Facility:[facility] Start: 09-08-2024 End: 09-08-2024 Patient encounter procedure Clementina Magalie Montesinos [facility] Start: 09-07-2024 ambulatory EVAN WHITE Facility:[facility] Start: 09-05-2024 End: 09-05-2024 ambulatory Angel Fete RPh,PharmD Pharmacy Outpatient [facility] [place] Start: 09-05-2024 End: 09-05-2024 Patient encounter procedure Angel Fete RPh,PharmD Pharmacy Outpatient RX [facility] Start: 08-29-2024 End: 08-29-2024 Clinisync Result Encounter Generic External Data Provider [facility] External Department Unsolicited Start: 08-29-2024 End: 08-29-2024 Clinisync Result Encounter Generic External Data Provider [facility] External Department Unsolicited Start: 08-24-2024 ambulatory ZULY BRUNO Facility: [facility] Start: 08-23-2024 End: 08-23-2024 Bamboo flowsheet Zuly Bruno INSURANCE INSPECTOR Work Phone: [facility] Start: 08-23-2024 End: 08-23-2024 Bamboo flowsheet Zuly Bruno INSURANCE INSPECTOR Work Phone: [facility] Start: 08-23-2024 End: 08-23-2024 Office outpatient visit 25 minutes Zuly Bruno INSURANCE INSPECTOR Work Phone: [facility] Comment on above: Primary hypertension (CMS/HCC) [...] Start: 08-11-2024 End: 08-12-2024 Refill Zuly Bruno INSURANCE INSPECTOR Work Phone: [facility] Comment on above: Primary hypertension (CMS/HCC) Start: 08-02-2024 End: 08-02-2024 Clinisync Result Encounter Generic External Data Provider [facility] External Department Unsolicited Start: 08-02-2024 End: 08-02-2024 Clinisync Result Encounter Generic External Data Provider [facility] External Department Unsolicited Start: 06-23-2024 End: 06-23-2024 ambulatory Meka Munoz [facility] Pharmacy Outpatient [facility] Start: 06-23-2024 End: 06-23-2024 Patient encounter procedure Meka Munoz [facility] Pharmacy Outpatient RX [facility] Start: 06-17-2024 End: 06-17-2024 Office outpatient visit 25 minutes Daisha Max DO Work Phone: [facility] Comment on above: Liver lesion (Primar y Dx); Liver transplant recipient; High risk medication use; Therapeutic drug monitoring; 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) Start: 06-17-2024 ambulatory SELF SELF Facility:[facility] Start: 05-26-2024 End: 05-26-2024 ambulatory Evan Bolton RP,PharmD Pharmacy Outpatient RX [facility] Start: 05-26-2024 End: 05-26-2024 Patient encounter procedure Evan Bolton RP,PharmD Pharmacy Outpatient RX [facility] Start: 05-13-2024 End: 05-13-2024 ambulatory [facility] Start: 04-18-2024 End: 04-18-2024 ambulatory ZULY KIANA Not Available Start: 03-24-2024 End: 03-24-2024 Patient encounter procedure Angel Carpio RP,PharmD Pharmacy Outpatient RX [facility] Start: 03-24-2024 End: 03-24-2024 ambulatory Angel Carpio RP,PharmD Pharmacy Outpatient RX [facility] Start: 03-22-2024 End: [...] 03-02-2024 End: 03-02-2024 ambulatory Meka Munoz [facility] Pharmacy Outpatient [facility] [place] Start: 03-02-2024 End: 03-02-2024 Patient encounter procedure Meka Munoz RPH Pharmacy Outpatient RX [facility] Start: 03-01-2024 ambulatory SELF SELF Facility:[facility] Start: 03-01-2024 End: 03-01-2024 ambulatory JOHNNA BRINK Not Available Start: 02-26-2024 ambulatory KELVIN PACHECO Facility: [facility] Start: 02-26-2024 End: 02-26-2024 Office outpatient new 30 minutes Candie Almaguer MD Work Phone: [facility] Comment on above: Heart failure, diast olic, acute (Primary Dx) Start: 02-26-2024 ambulatory KELVIN PACHECO Facility: [facility] Start: 02-25-2024 End: 02-25-2024 ambulatory FIDELINA SANCHEZ Not Available Start: 02-23-2024 End: 02-23-2024 ambulatory PALMA PALACIOS Not Available Start: 02-11-2024 Patient encounter procedure Generic Provider [facility] Start: 02-11-2024 End: 02-11-2024 ambulatory ZULY BRUON Not Available Start: 01-16-2024 End: 01-23-2024 Evaluation and management of inpatient Reese Sage MD Work Phone: [facility] Comment on above: Pleural effusion on right Start: 01-16-2024 End: 01-23-2024 Patient encounter status Reese Sage MD Work Phone: [facility] Work Phone: Start: 01-12-2024 End: 01-12-2024 ambulatory Angel Fete RPh,PharmD Pharmacy Outpatient RX [facility] Start: 01-12-2024 End: 01-12-2024 Patient encounter procedure Angel Fete RPh,PharmD Pharmacy Outpatient [facility] [place] Start: 01-08-2024 Clinisync Result Encounter Generic External Data Provider [facility] External Department Unsolicited Start: 01-08-2024 Clinisync Result Encounter Generic External Data Provider [facility] External Department Unsolicited Start: 01-06-2024 End: 01-06-2024 Office outpatient visit 25 minutes Zuly Bruno INSURANCE INSPECTOR Work Phone: [facility] Comment on above: Bilateral lower extr emity edema (Primary Dx); 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); Atherosclerosis 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); Obesity (BMI 30-39.9); DARLENE (obstructive sleep apnea); Tremor; Immunocompromised ([facility]); Primary hypertension ([facility]); Shortness of breath Start: 01-06-2024 End: 01-06-2024 ambulatory ZULY BRUNO Not Available Start: 01-01-2024 Clinisync Result Encounter Generic External Data Provider [facility] External Department Unsolicited Start: 01-01-2024 Clinisync Result Encounter Generic External Data Provider [facility] External Department Unsolicited Start: 10-06-2023 ambulatory Angel Carpio RPh,PharmD Pharmacy Outpatient RX [facility] Start: 10-06-2023 Patient encounter procedure Angel Carpio RPh,PharmD Pharmacy Outpatient [facility] [place] Start: 08-28-2023 End: 09-11-2023 Evaluation and management of inpatient Steve MORENOBS Work Phone: [facility] Start: 08-28-2023 End: 08-28-2023 Office outpatient visit 25 minutes Steve MORENOBS Work Phone: [facility] Comment on above: Immunosuppressed sta tus (Primary Dx); Kidney replaced by transplant; Aftercare following organ transplant; High risk medication use; Other general symptoms and signs; Abnormal blood chemistry; Hypertension secondary to other renal disorders Start: 08-19-2023 ambulatory Meka rueda [facility] Pharmacy Outpatient RX [facility] Start: 08-19-2023 Patient encounter procedure Meka Munoz [facility] Pharmacy Outpatient RX [facility] Start: 06-12-2023 End: 06-12-2023 Office outpatient visit 25 minutes Steve Munoz MBBS Work Phone: [facility] Comment on above: 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) Start: 06-10-2023 ambulatory Maren Bar RPh,PharmD Pharmacy Outpatient RX [facility] Start: 06-10-2023 Patient encounter procedure Maren Dipika RPsylvester,PharmD Pharmacy Outpatient [facility] [place] Start: 04-28-2023 End: 04-29-[address] DOCTOR SCHOFIELD Facility: Start: 04-13-2023 ambulatory Angel Fete RPh,PharmD Pharmacy Outpatient RX [facility] Start: 03-12-2023 Patient encounter procedure Angel Fete RPh,PharmD Pharmacy Outpatient [facility] [place] Start: 03-10-2023 ambulatory Angel Fete RPh,PharmD Pharmacy Outpatient RX [facility] Start: 03-10-2023 Patient encounter procedure Angel Fete RPh,PharmD Pharmacy Outpatient RX [facility] Start: 03-02-2023 End: 03-03-[address] DOCTOR EVANS Facility:[facility] Start: 01-16-2023 End: 01-16-2023 Office outpatient visit 25 minutes Daisha Max DO Work Phone: [facility] Comment on above: Abnormal blood [...] MD Work Phone: [facility] Comment on above: BPH with obstruction /lower urinary tract symptoms (Primary Dx); Encounter for screening for malignant neoplasm of prostate Start: 08-28-2022 End: 08-29-2022 ambulatory ROB BRUNO Facility:[facility] Start: 08-14-2022 End: 08-15-[address] DOCTOR EVANS Facility:[facility] Start: 07-07-2022 End: 07-07-2022 Patient encounter procedure Ryan Yepez MD Work Phone: [facility] Comment on above: Other hydronephrosis (Primary Dx); [...] MD Work Phone: [facility] Comment on above: Other hydronephrosis (Primary Dx) [...] Phone: [facility] Comment on above: Immunosuppressed [...] Facility: Start: 03-14-2022 ambulatory Comfort Rivera [facility] Work Phone: Pharmacy Outpatient RX [facility] Start: 03-14-2022 Patient encounter procedure Comfort Rivera [facility] Work Phone: Pharmacy Outpatient [facility] [place] Start: 06-14-2021 End: 06-14-2021 ambulatory Comfort Rivera [facility] Work Phone: [facility] Start: 06-14-2021 Patient encounter procedure Comfort Rivera [facility] Work Phone: [facility] Start: 01-20-2020 End: 01-27-2020 Patient encounter procedure PEPE CASE Facility:[facility] Start: 01-06-2020 End: 01-07-2020 Patient encounter procedure [facility] Start: 01-06-2020 End: 01-06-2020 Subsequent hospital visit by physician [facility] Start: 10-24-2019 End: 10-25-2019 Patient encounter procedure [facility] Start: 10-24-2019 End: 10-24-2019 Subsequent hospital visit by physician [facility] Start: 08-27-2019 End: 08-28-2019 Patient encounter procedure [facility] Start: 08-27-2019 End: 08-27-2019 Subsequent hospital visit by physician [facility] Start: 08-08-2019 End: 08-09-2019 Patient encounter procedure [facility] Start: 08-08-2019 End: 08-08-2019 Subsequent hospital visit by physician [facility] Start: 08-03-2019 End: 08-04-2019 Patient encounter procedure [facility] Start: 08-03-2019 End: 08-03-2019 Subsequent hospital visit by physician [facility] Start: 08-01-2019 End: 08-02-2019 Patient encounter procedure [facility] Start: 08-01-2019 End: 08-01-2019 Subsequent hospital visit by physician [facility] Start: 06-10-2019 End: 06-11-2019 Patient encounter procedure [facility] Start: 06-01-2019 End: 06-02-2019 Patient encounter procedure [facility] Start: 01-14-2019 End: 01-15-2019 Patient encounter procedure [facility] Start: 11-17-2018 End: 11-17-2018 Patient encounter procedure Fidelina Pierson [facility] Pre Transplant Office Comment on above: Social Work Follow-u p Start: 10-19-2018 End: 10-19-2018 Patient encounter Autumn [facility] Pre Transplant Office Comment on above: Cirrhosis of liver w ithout ascites, unspecified hepatic cirrhosis type (Primary Dx) Start: 10-19-2018 End: 10-19-2018 Office outpatient visit 25 minutes Christin Elizabeth Work Phone: Division of Gastroenterology and Hepat[facility] Comment on above: Alcoholic cirrhosis of liver without ascites (Primary Dx); Pre-transplant evaluation for liver transplant; Hepatic encephalopathy Start: 10-13-2018 End: 10-13-2018 Patient encounter procedure [facility] Pre Transplant Office Comment on above: Reschedule Outside Medical Allan rds Request Start: 10-12-2018 End: 10-12-2018 Patient encounter procedure Sophie Singerhaja [facility] Pre Transplant Office [...] 10-05-2018 Patient encounter status Comfort Rivera [facility] Work Phone: [facility] Procedures Date Procedure Procedure Detail Performing Clinician Start: 01-02-2025 History of renal transplant Steph elder Start: 12-28-2024 ALL CBC WITH AUTO DIFF Generic External Data Provider Start: 12-26-2024 End: 12-26-2024 Esophagogastroduodenoscopy Zuly Bruno Work Phone: Start: 12-26-2024 Colonoscopy Generic Provider Start: 12-26-2024 Colonoscopy Steph Almodovar Start: 11-22-2024 History of renal transplant Steph X Orsaeed ech Start: 11-21-2024 ALL CBC WITH AUTO DIFF [...] Data Provider Start: 01-23-2024 Glucose measurement, blood LU Jain [...] West Work Phone: Start: 01-22-2024 Antibody screen Reese Sage MD Work Phone: Start: 01-22-2024 Assay of magnesium Timothy Joseph [...] Phone: Start: 01-20-2024 ITRACONAZOLE LEVEL Fidelina Alarcon [facility] Work Phone: Start: 01-20-2024 Oscillating positive [...] Iadna nos quantification each organism Fidelina Alarcon [facility] Work Phone: Start: 01-18-2024 Echo tthrc r-t [...] AURIS SCREEN BY PCR Carol Ann Velasco Hi ll SOCIAL SERVICE ASSISTANT-LATEX FASHIONS DESIGNER Work Phone: Start: 01-08-2024 ALL CBC WITH AUTO DIFF Generic External Data Provider Start: 01-01-2024 ALL CBC WITH AUTO DIFF Generic External Data Provider Start: 09-11-2023 Glucose measurement, blood Reese tipton MD Work Phone: Start: 09-11-2023 Assay [...] Start: 09-05-2023 Hepatic function panel Evan Kelly M D Work Phone: Start: 09-05-2023 CONTINUOUS CARDIAC MONITORING STRIP Other Other Start: 09-04-2023 Calcium ionized Reese Sage MD Work Phone: Start: 09-04-2023 Radiologic exam chest single view Barber Diaz MD Work Phone: Start: 09-04-2023 Oscillating positive expiratory pressure (flutter) physiotherapy Laurel Serrano MD, PhD Work Phone: Start: 09-04-2023 Assay of magnesium Evan Kelly MD Work Phone: Start: 09-04-2023 Hepatic function panel Evan Velasco D Work Phone: Start: 09-03-2023 Flow cytometry cell [...] probe tq each organism Evan A Bryandiana DO Work Phone: Start: 08-31-2023 End: 08-31-2023 [...] AURIS SCREEN BY PCR Carol Ann Rod Hi ll SOCIAL SERVICE ASSISTANT-LATEX FASHIONS DESIGNER Work Phone: Start: 08-28-2023 CBC AND ELECTRONIC DIFF Gi Aranda MD Work Phone: Start: 08-28-2023 Complete blood count with white cell differential, automated Gi Aranda MD Work Phone: Start: 08-28-2023 End: 08-28-2023 Culture bacterial blood aerobic w/id isolates Aric Turner MD Work Phone: Start: 08-28-2023 Electrolyte panel iG Aranda MD Work Phone: Start: 08-28-2023 Respiratory virus DNA+RNA [Identifier] in Unspecified specimen by ESTELITA with probe detection Gi Aranda MD Work Phone: Start: 09-15-[address] DOCTOR EVANS Comment on above: Performed By: #### CMP #### [facility] [address] [place] [address] Dr. Dwight Waters Start: 07-07-2022 Rmvl nfros tube req fluoro guidance Ryan Yepez MD Work Phone: Start: 06-27-2022 Ct abdomen & pelvis w/o contrast material Evan Byrd MD Work Phone: Start: 06-12-2022 Culture bct isol&prsmptv id isolate ea urine Steve S Tammy [facility] Work Phone: Start: 06-12-2022 EXTRA MICRO Steve S Tammy MBBS Work Phone: Start: 06-12-2022 Hemoglobin glycosylated a1c Steve S Tammy MBBS Work Phone: Start: 06-12-2022 Hepatic function panel Yovani Orr MD Work Phone: Start: 06-12-2022 URINALYSIS REFLEX TO CULTURE Steve S Tammy [facility] Work [...] H/O: liver recipient S/P liver transplant Comfort Miguel [facility] Work Phone: Start: 04-08-2020 H/O: liver recipient Liver transplant recipient Comfort Rivera [facility] Work Phone: Start: 01-06-2020 Potassium serum plasma/whole blood ROB PATINO Start: 01-06-2020 Potassium serum plasma/whole blood Elyse Ross Work Phone: Start: 11-30-2019 Transplant of kidney Steph Almodovar Start: 11-30-2019 Transplantation of liver Steph Almodovar Start: 10-24-2019 HEMOGLOBIN AND HEMATOCRIT, BLOOD ROB K ASMANI Start: 10-24-2019 Blood count hemoglobin Tana Abel Work Phone: Start: 09-20-2019 Colonoscopy Generic Provider Start: 08-27-2019 Blood count hemoglobin Rena Albertt Work Phone: Start: 08-08-2019 Blood count hemoglobin ROB KASMANI Start: 08-08-2019 Blood count hemoglobin Rob Kasmani Work Phone: Start: 08-03-2019 Hemoglobin glycosylated a1c ROB KASMAN I Start: 08-03-2019 Hemoglobin glycosylated a1c Rob Kasman i Work Phone: Start: 08-01-2019 Blood count hemoglobin Rob Kasmani Work Phone: Start: 07-25-2019 History of renal transplant -donor kidney transplant recipient Comfort Rivera [facility] Work Phone: Start: 06-10-2019 HEMOGLOBIN AND HEMATOCRIT, BLOOD ROB K ASMANI Start: 06-01-2019 Blood count hemoglobin ROB KASMANI Start: 03-22-2019 Lipid 1996 panel - Serum or Plasma Comfort Rivera [facility] Work Phone: Start: 01-14-2019 Potassium serum [...] 10-12-2018 End: 10-12-2018 Antibody cytomegalovirus cmv Yovani montes Work Phone: Start: 10-12-2018 End: 10-12-2018 Antibody dann-montes eb virus viral capsid vca Yovani Orr Work Phone: Start: 10-12-2018 End: 10-12-2018 Antibody herpes smplx type 1 Yovani montes Work Phone: Start: 10-12-2018 End: 10-12-2018 Antibody [...] 10-12-2018 End: 10-12-2018 PSA screening Yovani Orr Krugle Phone: Start: 10-12-2018 End: 10-12-2018 Thromboplastin time [...] liver recipient Liver trans plant status Zuly Bruno INSURANCE INSPECTOR Work Phone: H/O: liver recipient S/P liver transplant (CMS/HCC) Zuly Bruno INSURANCE INSPECTOR Work Phone: H/O: liver recipient Liver trans plant status (CMS/HCC) Zuly Bruno INSURANCE INSPECTOR Work Phone: History of renal transplant Kidn [...] Kidn ey replaced by transplant Rebeca Gutierrez APRN-TRAILHEAD MAINTENANCE WORKER Work Phone: Plan of Treatment Date Care Activity Detail Author Start: 12-26-2034 Screening for malignant neoplasm of colon [facility] Start: 09-20-2029 Screening for malignant neoplasm of colon [facility] Start: 10-24-2025 Potassium [Moles/volume] in Serum or Plasma POTASSIUM [facility] Start: 08-15-2025 Potassium [Moles/volume] in Serum or Plasma POTASSIUM [facility] Start: 07-04-2025 Potassium [Moles/volume] in Serum or Plasma POTASSIUM [facility] Start: 06-20-2025 Potassium [Moles/volume] in Serum or Plasma POTASSIUM [facility] Start: 06-16-2025 End: 06-16-2025 Patient encounter procedure [facility] Start: 06-13-2025 Potassium [Moles/volume] in Serum or Plasma POTASSIUM [facility] Start: 05-23-2025 Potassium [Moles/volume] in Serum or Plasma POTASSIUM [facility] Start: 03-28-2025 Potassium [Moles/volume] in Serum or Plasma POTASSIUM [facility] Start: 03-21-2025 Potassium [Moles/volume] in Serum or Plasma POTASSIUM [facility] Start: 02-28-2025 Potassium [Moles/volume] in Serum or Plasma POTASSIUM [facility] Start: 02-10-2025 Medicare Annual Wellness (AWV) Medicare Annual Wellness (AWV) [facility] Start: 02-08-2025 End: 02-08-2025 Patient encounter procedure 02/08/2025 8:40 AM EDT Office Visit [facility] [address] [place] [address] Zuly Bruno, BA [address] [place] [id number] [facility] Start: 01-23-2025 Potassium [Moles/volume] in Serum or Plasma POTASSIUM [facility] Start: 12-26-2024 [facility] Start: 11-07-2024 End: 11-07-2024 Patient encounter procedure 11/07/2024 2:20 PM EST Office Visit [facility] [address] [place] [address] Zuly Bruno, BA [address] [place] [address] [facility] Start: 10-25-2024 End: 10-25-2024 Patient encounter procedure 10/25/2024 8:40 AM EST Office Visit [facility] [address] [place] [phone] Zuly Bruno, BA [address] [place] [address] [facility] Start: 09-29-2024 Influenza vaccination Influenza Vaccine (#1) [facility] Comment on above: Postponed from 07/31/2024 (Patient Refus ed) Start: 09-07-2024 End: 09-07-2024 Telemedicine consultation with patient 09/07/2024 3:00 PM EDT Telemedicine Infectious Diseases Care [facility] [address] [place] [id number] Evan White DO [address], [place] [id number] Infect[facility] Diseases [facility] Start: 08-31-2024 Screening for malignant neoplasm of lung [facility] Start: 08-23-2024 End: 08-23-2025 Bacteria identified in Urine by Culture Urine culture (clean catch) Microbiology Routine Dysuria Expected: 08/23/2024 (Approximate), Expires: 08/23/2025 [facility] Comment on above: Expected: 08/23/2024 (Approximate), Expi res: 08/23/2025 Start: 08-23-2024 End: 08-23-2025 DXA Skeletal system Views for bone density DEXA bone density Imaging Routine Immunocompromised (CMS/HCC) Organ transplant Expected: 08/23/2024, Expires: 08/23/2025 [facility] Work Phone: Comment on above: Expected: 08/23/2024, Expires: Start: 08-23-2024 End: 08-23-2025 Hemoglobin A1c/Hemoglobin.total in Blood Hemoglobin A1c Lab Routine Blood glucose elevated Expected: 08/23/2024 (Approximate), Expires: 08/23/2025 [facility] Comment on above: Expected: 08/23/2024 (Approximate), Expi res: 08/23/2025 Start: 08-23-2024 End: 08-23-2025 Lipid 1996 panel - Serum or Plasma Lipid panel Lab Routine Mixed hyperlipidemia (CMS/HCC) Expected: 08/23/2024 (Approximate), Expires: 08/23/2025 [facility] Comment on above: Expected: 08/23/2024 (Approximate), Expi res: 08/23/2025 Start: 08-23-2024 End: 08-23-2025 Prostate specific Ag [Mass/volume] in Serum or Plasma PSA Lab Routine Prostate cancer screening Expected: 08/23/2024 (Approximate), Expires: 08/23/2025 [facility] Comment on above: Expected: 08/23/2024 (Approximate), Expi res: 08/23/2025 Start: 08-23-2024 End: 08-23-2025 Thyrotropin [Units/volume] in Serum or Plasma TSH Lab Routine Tremor Expected: 08/23/2024 (Approximate), Expires: 08/23/2025 [facility] Comment on above: Expected: 08/23/2024 (Approximate), Expi res: 08/23/2025 Start: 08-23-2024 End: 08-23-2025 Urinalysis complete panel - Urine Urinalysis with reflex microscopic (clean catch) Lab Routine Dysuria Expected: 08/23/2024 (Approximate), Expires: 08/23/2025 [facility] Comment on above: Expected: 08/23/2024 (Approximate), Expi res: 08/23/2025 Start: 08-23-2024 End: 08-23-2025 US.doppler Carotid arteries - bilateral Vascular US carotid artery duplex bilateral Imaging Routine Left carotid bruit Mixed hyperlipidemia (CMS/HCC) Expected: 08/23/2024, Expires: 08/23/2025 [facility] Comment on above: Expected: 08/23/2024, Expires: Start: 08-23-2024 End: 08-23-2024 Patient encounter procedure 08/23/2024 8:40 AM EDT Office Visit [facility] [address] [place] [address] Zuly Bruno NP [address] [place] [phone] Primary hypertension (CMS/HCC) (Primary Dx); Portal hypertension (CMS/HCC); Alcoholic cirrhosis of liver without ascites (CMS/HCC) [facility] Comment on above: Primary hypertension (CMS/HCC) (Primary Dx); Portal hypertension (CMS/HCC); Alcoholic cirrhosis of liver without ascites (CMS/HCC) Start: 08-22-2024 End: 08-22-2024 Patient encounter procedure 08/22/2024 9:00 AM EDT Office Visit [facility] [address] [place] [address] Zuly Bruno NP [address] [place] [address] [place] [phone] [facility] Start: 07-31-2024 Influenza vaccination INFLUENZA VACCINE (#1) [facility] Start: 06-17-2024 End: 06-17-2024 ambulatory [facility] Transplant [facility] Start: 06-17-2024 End: 06-17-2024 Patient encounter procedure [facility] Transplant [facility] Start: 03-22-2024 Fasting lipid profile LIPID SCREENING [facility] Start: 03-22-20[address] Lip[address] [facility] Start: 02-26-2024 End: 02-26-2024 Patient encounter procedure 02/26/2024 9:30 AM EDT Office Visit [facility] [address] [place] [phone] Candie Almaguer MD [address] [place] [phone] [facility] Start: 02-11-2024 End: 02-11-2024 Patient encounter procedure 02/11/2024 10:30 AM EDT Office Visit [facility] [address] [place] [address] Zuly Bruno, INSURANCE INSPECTOR [address] [place] [phone] [facility] Start: 02-09-2024 End: 02-09-2024 Telemedicine consultation with patient 02/09/2024 3:30 PM EDT Telemedicine Infectious Diseases [facility] [address] [facility] 4th [place] [phone] Hakeem Alamo MD [address] [facility] [address]th [place] [address] Infectious Diseases [facility] Start: 01-15-2024 End: 01-15-2024 ambulatory [facility] Transplant [facility] Start: 01-15-2024 End: 01-15-2024 Patient encounter procedure [facility] [...] Visit [facility] [address] [place] [phone] Zuly Bruno, INSURANCE INSPECTOR [address] [place] [phone] [facility] Start: 12-08-2023 End: 09-07-2024 CT Chest WO contrast [facility] Work Phone: Start: 12-01-2023 COVID-19 VACCINE (2 - Moderna risk series) COVID-19 VACCINE (2 - Moderna risk series) [facility] Start: 09-23-2023 End: 09-23-2023 ambulatory [facility] Start: 09-23-2023 End: 09-23-2023 Telemedicine consultation with patient 09/23/2023 4:00 PM EDT Telemedicine Infectious Diseases Care [facility] [address] [place] [address] Hakeem Alamo MD [address] [facility] 4th [place] [address] Infectious Diseases Care [facility] Start: 09-15-2023 End: 09-10-2024 ITRACONAZOLE LEVEL [facility] Start: 08-25-2023 End: 08-25-2024 ALLOSCREEN RECIPIENT (POST TX PRA) ALLOSCREEN RECIPIENT (POST TX PRA) Lab Routine Kidney replaced by transplant Aftercare following organ transplant Immunosuppressed status High risk medication use Other general symptoms and signs Abnormal blood chemistry Expected: 08/25/2023, Expires: 08/25/[address] [facility] Comment on above: Expected: 08/25/2023, Expires: Start: 07-31-2023 Influenza vaccination [facility] Start: 06-12-2023 End: 06-12-2023 Patient encounter procedure 06/12/2023 Office Visit Transplant Surgery Steve Munoz MBBS [address]th [place] [address] [facility] Start: 03-11-2023 End: 03-11-2023 Telemedicine consultation with patient 03/11/2023 Telemedicine Urology Ryan Yepez MD [address] [facility] [address] [place] [address] [facility] Start: 01-16-2023 End: 01-16-2023 Patient encounter procedure 01/16/2023 Office Visit Transplant Surgery [facility] Transplant [facility] Start: 10-31-2022 End: 10-31-2022 Patient encounter procedure 10/31/2022 Office Visit Transplant Surgery Steve Munoz, LU [address] [place] [address] [facility] Transplant [facility] Start: 09-10-2022 End: 09-10-2023 PSA screening PSA, SCREENING Lab Routine BPH with obstruction/lower urinary tract symptoms Encounter for screening for malignant neoplasm of prostate Expected: 09/10/2022 (Approximate), Expires: 09/10/[address] [facility] Comment on above: Expected: 09/10/2022 (Approximate), Expi res: 09/10/2023 Start: 08-11-2022 End: 08-11-2022 Patient encounter procedure 08/11/2022 Office Visit Urology Ryan Yepez MD [address] [facility] [address] [place] [phone] Urology Eye pending [facility] to [facility] Start: 07-31-2022 Influenza vaccination [facility] Start: 07-07-2022 End: 07-07-2022 Patient encounter procedure 07/07/2022 Office Visit Urology Ryan Yepez MD [address] [facility] [address] [place] [address] [facility] Start: 07-07-2022 End: 07-07-2023 FLUORO IMAGING FOR UROLOGY [facility] Comment on above: Expected: 07/07/2022, Expires: 3 1 Occurrences starti ng 07/07/2022 until 07/07/2022 Start: 06-27-2022 End: 06-27-2022 Patient encounter procedure 06/27/2022 Office Visit Urology Ryan Yepez MD [address] [facility] [address] [place] [address] [facility] Start: 06-27-2022 End: 06-27-2023 Basic metabolic 2000 panel - Serum or Plasma BASIC METABOLIC PANEL Lab Routine Other hydronephrosis Expected: 06/27/2022, Expires: 06/27/[address] [facility] Comment on above: Expected: 06/27/2022, Expires: Start: 06-27-2022 End: 06-27-2022 Patient encounter procedure 06/27/2022 Appointment Computerized Tomography Scan Ryan Yepez MD [address] [facility] [address] [place] [address] Department of Radiology Start: 06-15-2022 End: 05-16-2023 CT Abdomen and Pelvis WO contrast CT ABDOMEN/PELVIS WITHOUT CONTRAST Imaging Routine FAYE (acute kidney injury) Expected: 06/15/2022 (Approximate), Expires: 05/16/[address] [facility] Work Phone: Comment on above: Expected: 06/15/2022 (Approximate), Expi res: 05/16/2023 Start: 06-12-2022 End: 06-12-2022 Patient encounter procedure 06/12/2022 Office Visit Transplant Surgery Steve Munoz, LU [address] [place] [address] [facility] Start: 06-11-2022 End: 06-11-2023 BK VIRUS DNA QN, PCR, PLASMA BK VIRUS DNA QN, PCR, PLASMA Lab Routine Kidney replaced by transplant Liver replaced by transplant Abnormal blood chemistry Expected: 06/11/2022, Expires: 06/11/[address] [facility] Comment on above: Expected: 06/11/2022, Expires: 3 Start: 06-04-2022 End: 06-04-2022 Patient encounter procedure 06/04/2022 Office Visit [facility] Start: 10-18-2021 End: 10-18-2021 Patient encounter procedure 10/18/2021 Office Visit Transplant Surgery Steve Munoz, LU [address] [place] [phone] [facility] Start: 07-31-2021 Influenza vaccination INFLUENZA VACCINE (#1) [facility] Start: 07-26-2021 End: 07-26-2021 Patient encounter procedure 07/26/2021 Office Visit Transplant Surgery [facility] Start: 2021 Prostate specific antigen measurement [facility] Start: 2021 Screening for malignant neoplasm of lung LUNG CANCER SCREENING [facility] Start: 2021 Zoster vaccine hzv live for subcutaneous use ZOSTER (SHINGLES) VACCINE (1 of 2) [facility] Start: 09-20-2020 Colonoscopy COLORECTAL CANCER SCREENING DISCUSSION [facility] Start: 09-20-2020 Screening for malignant neoplasm of colon [facility] Start: 07-31-2019 Influenza vaccination Flu vaccine (#1) [place] Start: 05-22-2019 Annual Wellness Visit (AWV) Annual Wellness Visit (AWV) [place] Start: 04-18-2019 End: 10-19-2019 Ultrasonography of abdomen US ABDOMEN RUQ/LIVER/GB Routine Cirrhosis of liver without ascites, unspecified hepatic cirrhosis type Expected: 04/18/2019 (Approximate), Expires: 10/19/2019 [facility] Work Phone: Comment on above: Expected: 04/18/2019 (Approximate), Expi res: 10/19/2019 Start: 01-25-2019 End: 01-25-2019 Ambulatory 01/25/2019 Office Visit Gastroenterology Christin Elizabeth, SOCIAL SERVICE ASSISTANT-TRAILHEAD MAINTENANCE WORKER [address] [place] [address] [place] [phone] Division of Gastroenterology and Hepatology Gavin Start: 11-19-2018 End: 11-19-2018 Ambulatory 11/19/2018 Appointment [facility] Start: 11-19-2018 End: 11-19-2018 Ambulatory [facility] Start: 10-19-2018 End: 10-19-2018 Ambulatory Ultrasound Jakob Start: 10-12-2018 End: 10-12-2019 Hemoglobin A1c/Hemoglobin.total mass fraction (Bld) HEMOGLOBIN A1C Routine Alcoholic cirrhosis, unspecified whether ascites present Pre-transplant evaluation for liver transplant Expected: 10/12/2018, Expires: 10/12/2019 [facility] Work Phone: Comment on above: Expected: 10/12/2018, Expires: 9 Start: 10-12-2018 End: 10-12-2019 TYPE AND SCREEN - NOT FOR TRANSFUSION TYPE AND SCREEN - NOT FOR TRANSFUSION Routine Alcoholic cirrhosis, unspecified whether ascites present Pre-transplant evaluation for liver transplant Expected: 10/12/2018, Expires: 10/12/2019 [facility] Work Phone: Comment on above: Expected: 10/12/2018, Expires: 9 Start: 07-31-2018 Influenza vaccination INFLUENZA VACCINE (#1) [facility] Work Phone: Start: 2011 Fasting lipid profile LIPID SCREENING [facility] Work Phone: Start: 2011 Lipid screen Lipid screen [place] Start: 1990 DTaP/Tdap/Td vaccine (1 - Tdap) DTaP/Tdap/Td vaccine (1 - Tdap) [place] Start: 1990 Hepatitis B vaccination HEP B VACCINE (1 of 3 - 19+ 3-dose series) [facility] Start: 1990 Hepatitis B Vaccine (1 of 3 - Risk Recombivax 3-dose series) Hepatitis B Vaccine (1 of 3 - Risk Recombivax 3-dose series) [place] Start: 1990 Third diphtheria, tetanus and acellular pertussis (DTaP) vaccination [facility] Start: 1990 Zoster vaccine hzv live for subcutaneous use ZOSTER (SHINGLES) VACCINE (1 of 2) [facility] Start: [address] [facility] Start: 1989 Tetanus vaccination TETANUS [facility] Start: 1986 HIV screen HIV screen [place], [place] Start: 02-17-1984 HIV screening HIV SCREENING DISCUSSION [facility] Work Phone: Start: 1983 COVID-19 VACCINE (1) COVID-19 VACCINE (1) [facility] Start: 1982 DTaP/Tdap/Td vaccine (1 - Tdap) DTaP/Tdap/Td vaccine (1 - Tdap) [place] Start: 1977 Pneumococcal 0-64 years Vaccine (1 of 3 - PCV13) Pneumococcal 0-64 years Vaccine (1 of 3 - PCV13) [place] Start: 1977 PNEUMOCOCCAL VACCINE SERIES (1 - PCV) PNEUMOCOCCAL VACCINE SERIES (1 - PCV) [facility] Start: 1977 PNEUMOCOCCAL VACCINE SERIES (1 of 2 - PCV) PNEUMOCOCCAL VACCINE SERIES (1 of 2 - PCV) [facility] Start: [address] [facility] Start: 02-17-1976 COVID-19 VACCINE (#1) COVID-19 VACCINE (#1) [facility] Start: 02-17-[address] [facility] Start: 1971 COVID-19 VACCINE (#1) COVID-19 VACCINE (#1) [facility] Start: 1971 Hepatitis B vaccination HEP B VACCINE (1 of 3 - 3-dose series) [facility] Start: 1971 Medicare Annual Wellness (AWV) Medicare Annual Wellness (AWV) [facility] Start: 1971 Screening for malignant neoplasm of colon [facility] Start: 1971 Tetanus vaccination [facility] BK VIRUS DNA QN, PCR , PLASMA BK VIRUS DNA QN, PCR, PLASMA Lab Routine Kidney replaced by transplant Liver replaced by transplant Abnormal blood chemistry 06/12/2022 3:38 PM EDT [facility] CALCULI, URINARY (KIDNEY STONE) CALCULI, URINARY (KIDNEY STONE) Fluids Routine 05/19/2022 8:16 AM EDT [facility] Work Phone: CANNABINOIDS, QUANT (URINE)THC CONFIRMATION CANNABINOIDS, QUANT (URINE)THC CONFIRMATION Routine Alcoholic cirrhosis, unspecified whether ascites present ESRD (end stage renal disease) on dialysis Pre-transplant evaluation for liver transplant 10/12/2018 12:57 PM [facility] Work Phone: End: 09-10-2024 CHEM 6 (LYTES, BUN CREA) [facility] EBV VCA IGG AB EBV VCA IGG AB R outine Alcoholic cirrhosis, unspecified whether ascites present ESRD (end stage renal disease) on dialysis Pre-transplant evaluation for liver transplant 10/12/2018 12:57 PM [facility] Work Phone: Fungus identified in Unspecified specimen by Culture [facility] HLA TYPING (SOLID ORGAN) HLA TYPING (SOLID ORGAN) Routine Alcoholic cirrhosis, unspecified whether ascites present ESRD (end stage renal disease) on dialysis Pre-transplant evaluation for liver transplant 10/12/2018 12:57 PM [facility] Work Phone: HSV 1 AND 2 IGG ANTIBODY HSV 1 AND 2 IGG ANTIBODY Routine Alcoholic cirrhosis, unspecified whether ascites present ESRD (end stage renal disease) on dialysis Pre-transplant evaluation for liver transplant 10/12/2018 12:57 PM [facility] Work Phone: MR Abdomen WO and W contrast IV MRI ABDOMEN WITH AND WITHOUT CONTRAST Imaging Routine Liver lesion Ordered: 06/17/[address] [facility] Comment on above: Ordered: 06/17/2024 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 specific culture [facility] Patient Education Hemorrhoids ED Diverticulosis Know your Meds [facility] Work Phone: PLACEMENT NEPHROSTOM Y CATHETER PERCUTANEOUS W/ IMAGE GUIDANCE PLACEMENT NEPHROSTOMY CATHETER PERCUTANEOUS W/ IMAGE GUIDANCE Imaging Routine Hydronephrosis due to obstruction of ureteral orifice FAYE (acute kidney injury) 05/17/2022 11:08 AM EDT [facility] MN POST VOID RESIDUAL MN POST VO ID RESIDUAL MN - OFFICE PERFORMED Routine BPH with obstruction/lower urinary tract symptoms Ordered: 09/10/[address] [facility] Comment on above: Ordered: 09/10/2022 PTH INTACT PTH INTACT Routi ne Alcoholic cirrhosis, unspecified whether ascites present ESRD (end stage renal disease) on dialysis Pre-transplant evaluation for liver transplant 10/12/2018 12:57 PM [facility] Work Phone: RUBEOLA IGG AB (IMMU NE STATUS) RUBEOLA IGG AB (IMMUNE STATUS) Routine Alcoholic cirrhosis, unspecified whether ascites present ESRD (end stage renal disease) on dialysis Pre-transplant evaluation for liver transplant 10/12/2018 12:57 PM [facility] Work Phone: End: 01-16-2024 Standard ECG ECG ECG Routine One Time for 1 Occurrences starting 01/16/2024 until 01/16/[address] [facility] Comment on above: One Time for 1 Occurrences starting 12/31 until 01/16/2024 End: 09-10-2024 TACROLIMUS LEVEL, TROUGH (PRE DRUG LEVEL) [facility] VARICELLA IGG AB (IM M STATUS) VARICELLA IGG AB (IMM STATUS) Routine Alcoholic cirrhosis, unspecified whether ascites present ESRD (end stage renal disease) on dialysis Pre-transplant evaluation for liver transplant 10/12/2018 12:57 PM [facility] Work Phone: Immunizations Immunization Date Immunization Notes Care Provider Zeeshan yi 11-01-2024 influenza virus vaccine, unspecified formulation Steph Almodovar [facility] 11-03-2023 influenza virus vaccine, unspecified formulation Generic Provider [facility] 11-03-2023 Influenza, injectabl e, Madin Delanson Canine Kidney, preservative free, quadrivalent Generic Provider [facility] 11-03-2023 Moderna SARS-CoV-2 50mcg/0.5mL Booster Generic Provider [facility] 08-28-2022 influenza virus vaccine, unspecified formulation Steph Orzech [facility] 08-28-2022 influenza, injectabl e, quadrivalent, preservative free Generic Provider [facility] 09-30-2021 influenza virus vaccine, unspecified formulation Steph Orzech [facility] 09-30-2021 influenza, injectabl e, quadrivalent, preservative free Generic Provider [facility] 09-30-2021 SARS-CoV-2 (COVID-19 ) mRNA-1273 vaccine Steph Orzech [facility] 02-21-2021 SARS-CoV-2 (COVID-19 ) mRNA-1273 vaccine Steph Orzech [facility] 01-24-2021 SARS-CoV-2 (COVID-19 ) mRNA-1273 vaccine Steph Orzech [facility] 10-16-2020 influenza virus vaccine, unspecified formulation Steph Orzech [facility] 10-16-2020 influenza, injectabl e, quadrivalent, contains preservative Generic Provider [facility] Payers Date Payer Category Payer Self-pay 2019 Unknown [id number] 2019 Unknown [facility] [id number] 2019-Present [id number] 2018 Medicaid MEDICAID [facility] DEPT OF JOB xxxxxxxxxxxx 2018-Present [phone] [address] [place] [address] xxxxxxxxxxxx [id number] .[id number] 2018 Medicaid MEDICAID MEDICAI D [id number] 2018-Present [address] [place] [address] [id number] .[id number] 2018 Medicaid [id number] [id number] .[id number] 2018 Medicare MEDICARE MEDICAR E PART A AND B xxxxxxxxxxx 2018-Present [phone] [address] [address] [place] [address] xxxxxxxxxxx [id number] .[id number] 2018 Medicare [id number] 2018 Medicare MEDICARE MEDICAR E A AND B [id number] 2018-Present [address] [place] [address] [id number] .[id number] 2018 Medicare [id number]. 1.13.172.2.7.3 .320395.315 1971 Unknown [id number] 2.16.840.1.919153.3.579.2.173 1971 Unknown [id number] 2.16.840.1.201005.3.579.2.173 1971 Unknown [id number] 2.16.840.1.759778.3.579.2.173 1971 Unknown [id number] 2.16.840.1.733849.3.579.2.173 1971 Unknown [id number] 2.16.840.1.148499.3.579.2.173 1971 Unknown [id number] 2.16.840.1.525252.3.579.2.173 1971 Unknown [id number] 2.16.840.1.015149.3.579.2.173 1971 Unknown [id number] 2.16.840.1.937035.3.579.2.173 1971 Unknown [id number] 2.16.840.1.941933.3.579.2.647 1971 Unknown [id number] 2.16.840.1.603471.3.579.2.593 1971 Unknown [id number] 2.16.840.1.661684.3.579.2.593 1971 Unknown [id number] 2.16.840.1.779503.3.579.2.593 1971 Unknown [id number] 2.16.840.1.864667.3.579.2.593 1971 Unknown [id number] 2.16.840.1.937755.3.579.2.593 1971 Unknown [id number] 2.16.840.1.827793.3.579.2.593 1971 Unknown [id number] 2.16.840.1.969618.3.579.2.593 1971 Unknown [id number] 2.16.840.1.003865.3.579.2.593 1971 Unknown [id number] 2.16.840.1.037756.3.579.2.593 1971 Unknown [id number] 2.16.840.1.625267.3.579.2.593 1971 Unknown [id number] 2.16.840.1.747177.3.579.2.593 1971 Unknown [id number] 2.16.840.1.616915.3.579.2.593 1971 Unknown [id number] 2.16.840.1.106391.3.579.2.593 1971 Unknown [id number] 2.16.840.1.585165.3.579.2.593 1971 Unknown [id number] 2.16.840.1.077309.3.579.2.593 1971 Unknown [id number] 2.16.840.1.612917.3.579.2.125 9 1971 Unknown [id number] 2.16.840.1.089050.3.579.2.125 9 1971 Unknown [id number] 2.16.840.1.980568.3.579.2.125 9 1971 Unknown [id number] 2.16.840.1.644440.3.579.2.125 9 1971 Unknown [id number] 2.16.840.1.454727.3.579.2.125 9 1971 Unknown [id number] 2.16.840.1.629485.3.579.2.125 9 1971 Unknown [id number] 2.16.840.1.340826.3.579.2.125 9 1971 Unknown [id number] 2.16.840.1.972255.3.579.2.125 9 1971 Unknown [id number] 2.16.840.1.584440.3.579.2.125 9 1971 Unknown [id number] 2.16.840.1.703339.3.579.2.125 9 1971 Unknown [id number] 2.16.840.1.738866.3.579.2.125 9 1971 Unknown [id number] 2.16.840.1.191712.3.579.2.125 9 1971 Unknown [id number] 2.16.840.1.708113.3.579.2.125 9 1971 Unknown [id number] 2.16.840.1.275368.3.579.2.125 9 1971 Unknown [id number] 2.16.840.1.543304.3.579.2.125 9 1971 Unknown [id number] 2.16.840.1.959821.3.579.2.727 1971 Unknown [id number] 2.16.840.1.736986.3.579.2.727 1971 Unknown [id number] 2.16.840.1.223084.3.579.2.727 1971 Unknown [id number] 2.16.840.1.864934.3.579.2.727 1971 Unknown [id number] 2.16.840.1.056076.3.579.2.594 1971 Unknown [id number] 2.16840.1.634845.3.579.2.594 1971 Unknown [id number] 2.16840.1.184848.3.579.2.594 1971 Unknown [id number] 2.16840.1.571369.3.579.2.594 1971 Unknown [id number] 2.16840.1.119986.3.579.2.594 1971 Unknown [id number] 2.16840.1.184548.3.579.2.594 1959 Medicaid [id number] 1959 Medicare [id number] Unknown [id number] 2.16840.1.278150.3.579.2.531 Social History Date Type Detail Facility Start: 10-19-2018 End: 11-03-2023 Tobacco smoking status NHIS Former smoker [facility] Start: 07-19-1988 End: 05-14-2018 History of tobacco use Current smoker [facility] Work Phone: Start: 07-19-1988 End: 05-14-2018 History of tobacco use Cigarette Smoker [facility] Work Phone: Start: 10-19-2018 End: 10-27-2023 Cigarettes smoked current (pack per day) - Reported [facility] End: 07-19-1994 History of tobacco use Chews Tobacco [facility] Work Phone: Start: 1970 Sex Assigned At Not on file [facility] Work Phone: Start: 11-03-2018 Alcohol intake Current non-drinker of alcohol (finding) [place] Start: 06-22-2018 Alcohol Comment Hx of alcoholism [place] Start: 11-03-2018 End: 10-27-2023 Alcohol intake No [facility] Start: 07-19-2018 Tobacco use and exposure Former user [facility] Start: 09-06-2020 End: 11-07-2024 Alcohol intake Ex-drinker (finding) [facility] Start: 07-19-2018 Alcohol Comment stopped 05/14/[address] [facility] Start: 05-05-2022 End: 01-16-2023 Exposure to SARS-CoV-2 (event) Not sure [facility] Start: 07-07-2018 Gender identity Identifies as male gender (finding) [facility] Start: 01-16-2022 Sexual orientation Heterosexual (finding) [facility] Start: 11-03-2023 Tobacco use and exposure [...] Comment Former [facility] Start: 09-08-2024 End: 01-03-2025 Tobacco smoking status Never smoked tobacco (finding) [facility] Do you belong to any clubs or organizations such as mosque groups, unions, fraternal or athletic groups, or school groups? Yes [facility] Are you now , , , , never or living with a partner? [facility] Start: 12-15-2024 End: 12-26-2024 Sex Male (finding) [facility] Start: 1970 Sex Assigned At Male [facility] Medical Equipment Procedure Code Equipment Code Equipment Original Text Equipment Identifier Dates [id number] Start: 05-23-2020 [id number] Start: 04-12-2020 [id number] FDA Start: 05-17-2022 Comment on above: Description: Implant time-out completed by intra-procedural staff including this RN, performing arts technicians, and performing physician. The following was completed. [...] goal Functional Status Date Assessment Result Facility 01-03-2025 Functional Status N/A [facility] 11-22-2024 Functional Status N/A [facility] 09-08-2024 Functional Status N/A [facility] Clinical Notes 06-14-2021 to 01-03-2025 Note Date & Type Note Facility 01-03-2025 Hospital Discharge instructions Patient Education 01/03/2025 11:17:19 Benign Prostatic Hyperplasia Benign Prostatic Hyperplasia Benign [...] urethra. Follow these instructions at home: Take ynwv-cdu-fduowvl and prescription medicines only as told by [...] provider. Document Revised: 06/04/2022 Document Reviewed: 06/04/2022 YouScribe Patient Education 2023 [employer]. Follow Up Care 12/27/2024 09:54:21 With:JONATHAN Almodovar APRN, RUMA La, URL Address: When: Unknown [facility] 01-03-2025 Note Patient Education Urology Benign Prostatic Hyperplasia [...] or symptoms? Symptoms of this condition include: ??? Getting up often during the night to urinate. ??? Needing to urinate frequently during the day. ??? Difficulty starting urine flow. ??? Decrease in size and strength of your urine stream. ??? Leaking (dribbling) after urinating. ??? Inability to pass urine. This needs immediate treatment. ??? Inability to completely empty your bladder. ??? Pain when you pass urine. This is more common if there is also an infection. ??? Urinary tract infection (UTI). How is this diagnosed? This condition is diagnosed based on your medical history, a physical exam, and your symptoms. Tests will also be done, such as: ??? A post-void bladder scan. This measures any amount of urine that may remain in your bladder after you finish urinating. ??? A digital rectal exam. In a rectal exam, your health care provider checks your prostate by putting a lubricated, gloved finger into your rectum to feel the back of your prostate gland. This exam detects the size of your gland and any abnormal lumps or growths. ??? An exam of your urine (urinalysis). ??? A prostate specific antigen (PSA) screening. This is a blood test used to screen for prostate cancer. ??? An ultrasound. This test uses sound waves [...] severity of your condition. Treatment may include: ??? Observation and yearly exams. This may be the only treatment needed if your condition and symptoms are mild. ??? Medicines to relieve your symptoms, including: ? Medicines to shrink the prostate. ? Medicines to relax the muscle of the prostate. ??? Surgery in severe cases. Surgery may include: [...] the urethra. Follow these instructions at home: ??? Take xbmg-sao-fvnjeob and prescription medicines only as told by your health care provider. ??? Monitor your symptoms for any changes. Contact your health care provider with any changes. ??? Avoid drinking large amounts of liquid before going to bed or out in public. ??? Avoid or reduce how much caffeine or alcohol you drink. ??? Give yourself time when you urinate. ??? Keep all follow-up visits. This is important. Contact a health care provider if: ??? You have unexplained back pain. ??? Your symptoms do not get (more content not included)... [facility] 12-26-2024 Procedure note [facility] 12-15-2024 Evaluation note Authored December 15, 2024 [...] twice or three times daily if needed. [facility] Work Phone: [phone] Hospital Discharge instructions Patient Education 11/22/2024 09:57:55 [...] if anything looks unusual. Males with a nfqpdc-uafq-zcqvvk risk for skin cancer may want to see a roll skinner (antique clock repairer) for an annual body check. Where to find more information [place] [employer]: cancer.org Centers for Disease Control and Prevention: cdc.gov National Cancer [place]: cancer.gov Contact a health care provider if: [...] provider. Document Revised: 11/24/2023 Document Reviewed: 06/08/2023 YouScribe Patient Education 2023 [employer]. 11/22/2024 09:57:51 Erectile Dysfunction Erectile Dysfunction Erectile [...] Follow these instructions at home: Medicines Take lpqu-gml-gjroraf and prescription medicines only as told by [...] provider. Document Revised: 02/12/2022 Document Reviewed: 02/12/2022 You[employer] Patient Education 2023 [employer]. 11/22/2024 09:57:50 Benign Prostatic Hyperplasia Benign Prostatic [...] urethra. Follow these instructions at home: Take gqvv-iqw-ubyxotk and prescription medicines only as told by [...] provider. Document Revised: 06/04/2022 Document Reviewed: 06/04/2022 [employer] Patient Education 2023 [employer]. Follow Up Care 09/08/2024 14:18:18 With:Clementina James, URL Address: When: Unknown Comments:4 mos [facility] 12-24-2024 NotePatient Education Oncology Cancer Screening for [...] if anything looks unusual. 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 Hyperlipidemia ([facility]/HCC) 02/11/2024 Hypertension ([facility]/HCC) 01/06/2024 Incisional hernia of anterior abdominal wall [...] 02/11/2024 Right nephrolithiasis 02/11/2024 S/P liver transplant ([facility]) Takes dietary supplements Tremor 11/03/2023 Umbilical hernia [...] 7:09 AM ESTAssociated Problem(s): Portal hypertension (CMS/HCC) Ginette, continues w hepatology documented in this [facility]12-09-2024 Instructions* Patient Instructions* Zuly Bruno NP - 11/07/2024 2:20 PM EST No medication dose changes Recommend cutting back on snacking, goal for 10 pounds weight loss by next visit Exercise as tolerated, most days of the week for approx 30 minutes, treadmill is great option Will reach out again to transplant team about options for osteoporosis documented in this [facility]12-02-2024 History of Present illness Narrative* Gopi Noyola - 10/31/2024 12:18 PM EST [facility]: Shipping/Pickup: Patient has affirmed needing a refill of the following medications for Shipment (11/01) : Med Name: Mycophenolate 360mg Med Name: Tacrolimus 0.5mg Contact Info: Specialty ([place]) [phone] Jakob [phone] [facility] [phone] Raheem [phone] Bedside Delivery ([facility]) [phone] documented in this encounterOS[facility] Hospital Discharge instructions Patient Education 09/08/2024 14:31:14 [...] urethra. Follow these instructions at home: Take yfwd-hqu-vgdkxpn and prescription medicines only as told by [...] provider. Document Revised: 06/04/2022 Document Reviewed: 06/04/2022 YouScribe Patient Education 2023 [employer]. Follow Up Care 08/25/2024 09:38:26 With:Clementina James, URL Address: When:3 months Comments:med increase [facility] 10-10-2024 NoteUrology Office/Clinic Note Chief Complaint referral- [...] Skin: No rashes or suspicious lesions Assessment/Plan INSURANCE INSPECTOR referred by Zuly Bruno NP for weak [...] E&M of New Patient Moderate 45-59 Min 29422 2. Screening PSA (prostate specific antigen) (Z12.5: Encounter for screening for malignant neoplasmof prostate) No PSA records on file -Will discuss with patient at his follow up Ordered: E&M of New Patient Moderate 45-59 Min 52483 3. History of kidney transplant (Z94.0: Kidney transplant status) 08/29/24 - BUN 18, Cre 1.3, GFR 58 Pt had liver and kidney transplant in 2019 and follows yearly with [facility]. Ordered: E&M of New Patient Moderate 45-59 Min 08920 Orders: tamsulosin, 0.4 mg = 1 cap(s), Oral, BID, X 30 day(s), # 60 cap(s), Refills(s) 11, Pharmacy: [id number], 170, cm, 09/08/24 14:00:00 EDT, Height/Length Dosing, 90, kg, 09/08/24 14:00:00 EDT, Weight Dosing 80344 Measure Post Void residual urine and/or bladder capacity by US- non-imaging Urnls Dip Stick Auto w/o Microscopy POC 18107 Follow-up With When Contact Information Jaguar CASTILLO, Clementina Mejias, LEANDRO Within 3 months Additional Instructions: med [...] Glucose Urine Dipstick: Negative (more content not included)...[facility]:Result Comment: Electronically Signed By: Clementina James\Date and Time Signed: 09/08/24 14:33 [id number] Note Patient Education Urology Benign Prostatic Hyperplasia [...] Follow these instructions at home: ? Take mbfk-owc-uccyofi and prescription medicines only as told by [...] You develop side effec (more content not included)...[facility]10-07-[facility] History of Present illness Narrative* Starla Edwards - 09/05/2024 3:24 PM EDT [facility]: Call Information: Date and Time of Contact: 09/05/2024 3:24 PM Method of Contact: By Phone Contact Type: Prescriptions Contactor: Patient Contactee: [facility] Shipping/Pickup: Medicare B Refill?: No Medication Name: Mycophenolate, prograf Delivery Method: Ship Delivery Location: Home Signature Required: No Receive/Pickup Date: 09/06/2024 Shipping Address: [address] [place] [address] [address] Contact Info: Specialty ([place]) [phone] [facility] [place] [phone] [facility] [phone] Raheem [phone] Bedside Delivery ([facility]) [phone] documented in this [facility]U [facility] History of Present illness Narrative* Zuly Bruno [...] Dysuria Check urine and culture * Zuly Bruno NP - 08/23/2024 9:28 [...] needs a refill on his pepcid * Zuly Bruno NP - 08/23/2024 8:40 AM EDT Images from [...] Pancreatitis 02/11/2024 Peripheral neuropathy 12/03/2023 Portal hypertension ([facility]/HCC) 02/11/2024 Right nephrolithiasis 02/11/2024 S/P liver transplant ([facility]) Takes dietary supplements Tremor 11/03/2023 Umbilical hernia [...] Follows yearly with Hepatology documented in this encounterGolden Valley Memorial [id number] Instructions* Patient Instructions* Zuly Bruno NP - 08/23/2024 8:40 AM EDT Labs, referrals to : GI, Urology Tests: bone density test documented in this encounterGolden Valley Memorial [id number] History of Present illness Narrative* Starla Edwards - 06/23/2024 8:51 AM EDT [facility]: Call Information: Date and Time of Contact: 06/23/2024 8:52 AM Method of Contact: By Phone Contact Type: Prescriptions Contactor: [facility] Contactee: Patient Shipping/Pickup: Medicare B Refill?: No Medication Name: Prograf 0.2mg Delivery Method: Ship Delivery Location: Home Signature Required: No Receive/Pickup Date: 06/29/2024 Shipping Address: [address] [place] [address] [address] Contact Info: Specialty ([place]) [phone] Jakob [phone] [facility] [phone] Raheem [phone] Bedside Delivery ([facility]) [phone] documented in this encounterOSU [facility]07-19-[facility] History of Present illness Narrative* Daisha Max, [...] Surgeon: Jyoti Bryant MD, PhD; Location: [facility] MAIN OR PLACEMENT NEPHROSTOMY CATHETER PERCUTANEOUS W/ IMAGE GUIDANCE 05/17/2022 Surgeon: Enzo Heart DO; Location: [facility] INTERVENTIONAL RADIOLOGY (VIR) LIVER TRANSPLANT, ORTHOTOPIC N/A 04/12/2020 Laterality: N/A; Surgeon: LU Palma; Location: [facility] SAME DAY SURGERY MAIN OR KIDNEY TRANSPLANT W/O KNIK NEPHRECTOMY N/A 04/12/2020 Laterality: N/A; Surgeon: LU Palma; Location: [facility] SAME DAY SURGERY MAIN OR OTHER [...] 0.2 06/13/2024 Explant Pathology Pathologic Diagnosis A. [place] liver, orthotopic liver transplant resection (1458 gram): [...] up in 1 year. Daisha Max DO [facility] Hepatology [facility] Nutrition [facility] Pager: [phone] * José Miguel Garnica RN - 06/17/2024 10:00 AM EDT Images from the original note were not included. 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 Employment Consultant: Anayeli Burt Date of Liver Transplant: 04/13/2020 (Kidney), 04/13/2020 (Liver) 4 years, 2 months post Liver/KidneyTransplant Primary Disease: Hypertensive Nephrosclerosis Transplant [place]. Representative: Erma Roe/ Daisha Max Primary Care physician: [...] LAB AND PHARMACY: None Specified [id number] [place] [address] - [address] [facility] [address] [facility] [id number] [facility] [address] [place] [address] [facility][id number] - [place] [id number] [address] [facility] [address] [place] [address] [facility] Jakob [address], [address] [place] [address] ROS and SCREEN: Chest Pain: negative Cough: [...] year: no Do you follow with a Supervisor Specialty Plant? yes Do you have a Primary Care [...] TO ADDRESS WITH PHYSICIAN: documented in this encounterMer[facility]07-19-2024 Instructions* Patient Instructions* Ashlee Fair RN - 06/17/2024 10:00 AM EDT - No medication changes from a liver standpoint - A MRI Abdomen has been ordered today. Please call central scheduling at [phone] to schedule or take paper copy to your local hospital - Return to clinic 06/16/2025 [facility]ANS[facility]ANT HEPATOLOGY 3, [facility] as scheduled documented in this encounterMer[facility]07-19-2024 History of Present illness Narrative* Rebeca Gutierrez APRN-ROB - 06/17/2024 9:30 AM EDT Images from the original note were not included. George Styles is a 54 y.o. 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 The HLA mismatch was 1A,2B, 1DR. No longer follows with a local tank crewmember. History of Present Illness: Since George was [...] and lab results. Rebeca Gutierrez MSN, RN, SOCIAL SERVICE ASSISTANT-BC, CCTN Certified Nurse Practitioner [facility] [address] [facility] [address] documented in this encounterOSU [facility]07-19-2024 Instructions* Patient Instructions* JEANNA Hess - 06/17/2024 9:30 AM EDT Tacrolimus - increase to 0.2 mg packet three time per day; goal 3 to 5 ng/dL ; when the itraconazole stops 09/03/2024, reduce to 0.5 mg twice daily. Once your tacrolimus level is 3-5 ng/dL, you may reduce labs to every other week. documented in this encounterOSU [facility]06-27-2024 History of Present illness Narrative* Destiny Jensen - 05/26/2024 4:33 PM EDT [facility]: Call Information: Date and Time of Contact: 05/26/2024 4:35 PM Method of Contact: By Phone Contact Type: Prescriptions Contactor: [facility] Contactee: Patient Contact Outcome: Left message and Follow-up Contact Info: Specialty ([place]) [phone] Jakob [phone] [facility] [phone] Raheem [phone] Bedside Delivery ([facility]) [phone] * Melody Reyez - 05/26/2024 4:33 PM EDT [facility]: Call Information: Date and Time of Contact: 05/30/2024 4:52 PM Method of Contact: By Phone Contact Type: Prescriptions Contactor: Patient Contactee: [facility] Shipping/Pickup: Medicare B Refill?: No Medication Name: Myco sod 360mg, Prograf 0.2mg Delivery Method: Ship Delivery Location: Home Signature Required: No Receive/Pickup Date: 06/06/2024 Shipping Address: [address] [place] [address] Contact Info: Specialty ([place]) [phone] Jakob [phone] [facility] [phone] Raheem [phone] Bedside Delivery ([facility]) [phone] documented in this encounterOSU [facility]06-14-2024 NoteUT Cardiology - [facility] Subjective George Styles is a [...] Disp: , Rfl: t (more content not included)...[facility]04-25-2024 History of Present illness Narrative* Melody Reyez - 03/24/2024 4:12 PM EDT [facility]: Call Information: Date and Time of Contact: 03/24/2024 4:14 PM Method of Contact: By Phone Contact Type: Prescriptions Contactor: [facility] Contactee: Patient Contact Outcome: Left message Shipping/Pickup: Medication Name: Prograf 0.2mg pack Contact Info: Specialty ([place]) [phone] [facility] [place] [phone] [facility] [phone] Raheem [phone] Bedside Delivery ([facility]) [phone] * Starla Edwards - 03/24/2024 4:12 PM EDT [facility]RE[facility]: Call Information: Date and Time of Contact: 03/28/2024 3:58 PM Method of Contact: By Phone Contact Type: Prescriptions Contactor: [facility] Contactee: Patient Contact Outcome: Left message and Call back later Shipping/Pickup: Medication Name: Mycophenolate, prograf Contact Info: Specialty ([place]) [phone] [facility] [place] [phone] [facility] [phone] Raheem [phone] Bedside Delivery ([facility]) [phone] * Gabbi Rajput - 03/24/2024 4:12 PM EDT [facility]RE[facility]: Call Information: Method of Contact: By Phone Contact Type: Prescriptions Contactor: Patient Contactee: [facility] Shipping/Pickup: Medicare B Refill?: No Medication Name: Mycopheolate 360mg and Prograf Delivery Method: Ship Delivery Location: Home Signature Required: No Receive/Pickup Date: 04/04/2024 Shipping Address: [address] Contact Info: Specialty ([place]) [phone] [facility] [place] [phone] [facility] [phone] [facility] [phone] Bedside Delivery ([facility]) [phone] documented in [address]Mer[facility]04-25-2024 History of Present illness Narrative* Melody Reyez - 03/24/2024 4:12 PM EDT [facility]REACH [facility]: Call Information: Date and Time of Contact: 03/24/2024 4:14 PM Method of Contact: By Phone Contact Type: Prescriptions Contactor: [facility] Contactee: Patient Contact Outcome: Left message Shipping/Pickup: Medication Name: Prograf 0.2mg pack Contact Info: Specialty ([place]) [phone] [facility] [place] [phone] [facility] [phone] Raheem [phone] Bedside Delivery ([facility]) [phone] * Starla Edwards - 03/24/2024 4:12 PM EDT [facility]REACH [facility]: Call Information: Date and Time of Contact: 03/28/2024 3:58 PM Method of Contact: By Phone Contact Type: Prescriptions Contactor: [facility] Contactee: Patient Contact Outcome: Left message and Call back later Shipping/Pickup: Medication Name: Mycophenolate, prograf Contact Info: Specialty ([place]) [phone] [facility] [place] [phone] [facility] [phone] Raheem [phone] Bedside Delivery ([facility]) [phone] * Gabbi Rajput - 03/24/2024 4:12 PM EDT [facility]REACH [facility]VANC[facility]: Call Information: Method of Contact: By Phone Contact Type: Prescriptions Contactor: Patient Contactee: [facility] Shipping/Pickup: Medicare B Refill?: No Medication Name: Mycopheolate 360mg and Prograf Delivery Method: Ship Delivery Location: Home Signature Required: No Receive/Pickup Date: 04/04/2024 Shipping Address: [address] [place] [address] [address] Contact Info: Specialty ([place]) [phone] [facility] [place] [phone] [facility] [phone] Raheem [phone] Bedside Delivery ([facility]) [phone] * Meka Munoz, [facility] - 03/24/2024 4:12 PM EDT [facility] [...] Within normal limits Contact Info: Specialty ([place]) [phone] [facility] [place] [phone] [facility] [phone] Raheem [phone] Bedside Delivery ([facility]) [phone] documented in [address]Mer[address] [facility]04-03-2024 History of Present illness Narrative* Mckenna [...] up del of broth Contact Info: Specialty ([place]) [phone] [facility] [place] [phone] [facility] [phone] Raheem [phone] Bedside Delivery ([facility]) [phone] * Andressa Gutiérrez - 03/02/2024 8:14 AM EDT [facility]: Call Information: Date and Time of Contact: 03/02/2024 3:49 PM Method of Contact: By Phone Contact Type: Prescriptions Contactor: [facility] Contactee: Patient Contact Outcome: Left message and Follow-up Shipping/Pickup: Medication Name: Myco 360mg and Prograf 0.2mg Contact Info: Specialty ([place]) [phone] [facility] [place] [phone] [facility] [phone] Raheem [phone] Bedside Delivery ([facility]) [phone] * Mckenna Stuart - 03/02/2024 8:14 AM EDT [facility]REACH [facility]VANCED: Call Information: Date and Time of Contact: 03/02/2024 4:08 PM Method of Contact: By Phone Contact Type: Prescriptions Contactor: [facility] Contactee: Patient Shipping/Pickup: Medicare B Refill?: No Medication Name: Myco 360 / prograf 0.2 Delivery Method: Ship Delivery Location: Home Signature Required: No Receive/Pickup Date: 03/03/2024 Shipping Address: [address] [place] [address] [address] Contact Info: Specialty ([place]) [phone] [facility] [place] [phone] [facility] [phone] Raheem [phone] Bedside Delivery ([facility]) [phone] documented in [address] encounterMercy [facility]. [facility]03-29-2024 History of Present illness Narrative* Marsha [...] to the [facility] on 02/26/2024 for initial evaluation [...] Surgeon: Jyoti Bryant MD, PhD; Location: [facility] MAIN OR PLACEMENT NEPHROSTOMY CATHETER PERCUTANEOUS W/ IMAGE GUIDANCE 05/17/2022 Surgeon: Enzo Herat DO; Location: [facility] INTERVENTIONAL RADIOLOGY (VIR) LIVER TRANSPLANT, ORTHOTOPIC N/A 04/12/2020 Laterality: N/A; Surgeon: LU Palma; Location: [facility] SAME DAY SURGERY MAIN OR KIDNEY TRANSPLANT W/O KNIK NEPHRECTOMY N/A 04/12/2020 Laterality: N/A; Surgeon: LU Palma; Location: [facility] SAME DAY SURGERY MAIN OR OTHER [...] qd Antithrombotic: no Statin: no ICD: NA PER DIEM REGISTERED NURSE: NA CV Test results: ECHOCARDIOGRAM 01/18/2024 (Final) Interpretation Summary Left Ventricle: Chamber size is normal. Increased wall thickness. Concentric hypertrophy. Normal global systolic function. Regional wall motion is normal. Ejection fraction is normal (55 - 60%). Right Ventricle: Chamber size is normal. Systolic function is low normal. No hemodynamically significnat valve disease. Moderate pericardial effusion. There is no evidence of tamponade. [facility] (01/20/24) Hemodynamic Summary: Baseline Hemodynamics Systemic BP [...] be BP control. Candie Almaguer M.D. radio mechanic apprentice Advanced Heart Failure Program Division of Cardiovascular Medicine [facility] [email or web address] [phone] fax [phone] documented in this encounterOSU [facility]03-29-2024 Instructions* Patient Instructions* Marsha Mckeon RN - 02/26/2024 9:30 AM EDT The following instructions were given today: Labs today Follow up with Dr. Almaguer as needed. Your after visit summary (AVS) is viewable in [facility] My Chart. Call RN if you have cardiac questions/concerns M-F 8 to 4:30 ; office # [phone], option 6, then option 2. Guidelines for home management: 1. Continue to monitor weight first thing each morning. 2. Report to the [facility] CLIN[facility] ([phone]) any significant weight change. Remember that weight [...] to have labs/tests run outside of the [facility] and you do not hear from us1-2 days after they are performed, you must call us to ensure we received the results. Office fax #[phone]. No news does not necessarily mean that your tests are normal, it could mean we did not get the results. For questions/updates: please provide your name with spelling, date of and question or update All calls are prioritized and responses researched, if possible, prior to calls being returned. Call Scheduling for any appointment/procedure verification or changes [phone], option 7 or [facility] at [phone], option 1. documented in [facility]* Nursing Notes - Terra Heart [...] home on home oxygen supply. [facility]02-24-2024 Miscellaneous Notes* Nursing Notes - Terra [...] - 01/22/2024 1:34 PM EST George Styles ([id number]) PRE OPERATIVE DIAGNOSIS High output congestive heart failure [I50.83] POST OPERATIVE DIAGNOSIS Post-Op Diagnosis Codes: * High output congestive heart failure [I50.83] PROCEDURE PERFORMED Procedure(s) (LRB): LIGATION ANGIOACCESS AVF (Left) Resection of large aneurysmic vein PRIMARY CLOSURE Yes INTRAOPERATIVE FINDINGS No significant abnormalities SURGEON Surgeons and Role: * Jyoti Bryant MD, PhD - Primary ANESTHESIOLOGIST Anesthesiologist: Celena Tiwari MD; eKhinde Gutierrez MD ASPHALT MIXER: Raheem Jasso APRN-ASPHALT MIXER Civil Design Technician Assisting: Mini Khan MD SURGICAL STAFF Medical Billing Clerk: Zoila Lawrence RN Relief Medical Billing Clerk: Marimar Saravia RN Relief Scrub: Briseyda [...] easily. Report received from regional vice president life sales and report received from anesthesiology. Pt [...] Axillary block. SURGEON(S): Jyoti Bryant MD, PHD ALL SOURCE INTELLIGENCE TECHNICIAN: Mynor Fall MD ESTIMATED BLOOD LOSS: Minimal. [...] Jyoti Bryant MD, PHD ATTENDING SHANNON/Constanza JOB: [id number] DOC: [id number] * Plan of Care - Tati Ahmadi [...] overnight coverage, Jasper Gastelum MD, via pager #[phone] Pt- Mark. Sarah Styles 1082. TM1. Was wondering if he can have his Melatonin order increased to 6mg. Per pt, he usually takes 8mg at home. -SAMI Duffy #[phone] Tati Charles RN * Plan of Care - Arelis Mera MD - 01/16/2024 7:27 AM EST Internal Medicine Daily Progress Note Patient: George Styles, 1970, [id number] Physician: Arelis Mera MD, PGY3, Pager #[phone], TM1 service Assessment/Plan: George Styles is a [...] 5mg CAD: non-obstructive CAD on [facility] 2018. - continue home aspirin 81mg [...] Code Discussed with team and attending, Dr Reese Sage MD, on rounds. Signed, Arelis Mera MD * Nursing Notes - Izzy Gutierrez RN - 01/16/2024 1:41 AM EST Mr. Styles was admitted to [address] [place] [address]. On admission to [facility], from outside facility a dual RN initial assessment of skin condition was performed by Izzy Gutierrez RN and Leroy Singleton RN. Skin Assessment: Skin within defined limits:Yes Jose Score: 20 W[employer] Guidance Counselor images obtained: No LDA Added: No Based [...] nurses station when available. documented in this encounter[facility] Nurse Note* Nursing Notes - Terra [...] of oxygen is also required.) [facility]02-24-2024 History of Present illness Narrative* Leonel [...] Kelvin Pacheco MD, MBBS assistant professor of life sciences Transplant nephrology * Leonel Harris DO - 01/22/2024 3:29 PM EST Surgery Post-Op [...] monitor Leonel Harris DO General Surgery Pager [phone] * Girish Salvador RN - 01/22/2024 3:14 PM EST CM went to bedside to talk with patient. Patient states he has home oxygen through [employer]. He uses 2.5 LNC around the clock. Patient states his brother will bring a tank for discharge. Anticipate patient will discharge tomorrow AM. Brother updated. Girish Oro RN, BSN Clinical Sales Utility Representative Please note that I am a float field nurse case manager and may not cover the same service every day. Please call the main Case Management office at [phone] for up-to-date coverage. Verified patients identity using [...] Daily Progress Note Patient: George Stylse, 1970, [id number] Physician: Yury Ozuna MD, PGY1, Pager #[phone], TM1 service Assessment/Plan: George Styles is a [...] 5mg CAD: non-obstructive CAD on [facility] 2018. - continue home aspirin 81mg [...] agreed with the Nutrition plan outlinedin the Corporate Auditor s note. DVT prophylaxis with lovenox Diet [...] 633) Bun/Creat/Cl/CO2/Glucose: 15/1.11/107/26/93 (01/21 633) Doppler US AMIE AVF: Associated attestation - Kelvin Pacheco MD, MBBS - 01/21/2024 4:20 PM EST Patient seen and examined at bedside today during multidisciplinary rounds with medicine residents and pharmacy, charts reviewed, laboratory parameters reviewed. Agree with plan of care as mentioned in resident note. Kelvin Pacheco MD, MBBS assistant professor of life sciences Transplant nephrology * Kelvin Pacheco MD, MBBS - 01/20/2024 3:44 PM EST Patient seen [...] Kelvin Pacheco MD, MBBS assistant professor of life sciences Transplant nephrology * Yury Ozuna MD - 01/20/2024 9:31 AM EST Images from the original note were not included. Internal Medicine Daily Progress Note Patient: George Styles, 1970, [id number] Physician: Yury Ozuna MD, PGY1, Pager #[phone], TM1 service Assessment/Plan: George Styles is a [...] 5mg CAD: non-obstructive CAD on [facility] 2019. - continue home aspirin 81mg [...] agreed with the Nutrition plan outlinedin the Corporate Auditor s note. DVT prophylaxis with lovenox Diet [...] (01/20 611) Ptt/Pt/Inr: 30.6/15.5/1.2 (01/20 06) Doppler AMIE AVF: Associated attestation - Kelvin Pacheco [...] Refills: 0 Provider: Zuly Bruno NP Pharmacy: [facility] [place], [place] Other Comments: Patient reported his Last Home Dose of mycophenolate and tacrolimus was on 01/15/24 at 0700. Medications that need removed from Outside Medication Reconciliation list: Please remove all medications. Please feel free to contact me with any further questions. Name: Heidy Chatman Phone #: [phone] Date/Time: 01/19/2024 12:08 PM Time Spent: 15 minutes Associated attestation - Fidelina Alarcon RPH - 01/19/2024 12:41 PM EST Department of Pharmacy Admission Medication Reconciliation Note Patient: George Styles Room/Bed: 1082/A I have reviewed the home medication list with the Digital Sales Assistant. The home medication list status is: complete. All changes to the home medication list have been updated in [facility]. Updated LITHOGRAPHIC PLATE MAKER APPRENTICE Med List: Prior to Admission Medications Prescriptions [...] any further questions. Name: Fidelina Alarcon [facility] Phone #: [phone] Date/Time: 01/19/2024 12:41 PM * Yury Ozuna MD - 01/19/2024 11:10 AM EST Internal Medicine Daily Progress Note Patient: George Styles, 1970, [id number] Physician: Yury Ozuna MD, PGY1, Pager #[phone], GA0 service Assessment/Plan: Acute Hypoxic Respiratory Insufficiency GARCIA, [...] 5mg CAD: non-obstructive CAD on [facility] 2018. - continue home aspirin 81mg [...] agreed with the Nutrition plan outlinedin the Corporate Auditor s note. DVT prophylaxis with lovenox Diet [...] Review: WBC/Hgb/Hct/Plts: 3.69/12.1/37.5/163 (01/19 616) Na/K+/Phos/Mg/Ca: 140/3.8/--/1.8/-- (02/20 0616) Bun/Creat/Cl/CO2/Glucose: 16/.13/106/24/86 (01/19 0616) Associated attestation - Kelvin Pacheco [...] Kelvin Pacheco MD, MBBS assistant professor of life sciences Transplant nephrology * Yury Ozuna MD - 01/18/2024 2:53 PM EST Internal Medicine Daily Progress Note Patient: George Styles, 1970, [id number] Physician: Yury Ozuna MD, PGY1, Pager #[phone], KR7 service Assessment/Plan: Updates: - continued diuresis with [...] 5mg CAD: non-obstructive CAD on [facility] 2019. - continue home aspirin 81mg [...] agreed with the Nutrition plan outlinedin the Corporate Auditor s note. DVT prophylaxis with lovenox Diet [...] Kelvin Pacheco MD, LU assistant professor of life sciences Transplant nephrology * BENJY Syed - 01/18/2024 1:42 PM EST Pt known to electric knife operator from previous admissions. Provided emotional and spiritual support. Patient shared about: family support, medical course Darkroom Technician provided: - Supportive presence - Active listening - Validation of feelings/emotions Patient encouraged to request a electric knife operator as needed. Chaplains are available in-house 24 hours a day and 7 days a week. For urgent matters in [facility], please page [phone]. If the request is not urgent, please enter a consult. Consults are responded to within 24 hours. Senior Staff Darkroom Technician Angie Singh Md, [facility] Kirk [phone] [email or web address] On-call TYLOR: workplace relations adviser Raheem: 22/06 Pager TYLOR,BS, and Brock Hernandez Pager [phone] 01/18/24 1342 Clinical Encounter Type Visited With Patient Visit Type Introduction Pastoral Time Spent 15 min Referral Other (See Comment) (rounding) Spiritual Assessment Emotional Observation Coping well;Anxiety Hope Observation Specific hope focus Support Observation By Family Interventions Provided Active listening;Supportive presence Facilitated Verbalization of feelings;Identifying support system;Identifying Sources of spiritual well-being Explored Expectations;Treatment decisions Instructional Writer Education Instructional Writer Service Available Yes Educated Patient Outcomes Patient Outcomes Articulated purpose/meaning Plan of Care Continue Visiting PRN * Fidelina Alarcon RPH - 01/18/2024 9:56 AM EST Department of [...] interaction. Name: Fidelina Alarcon RPH Phone #: [phone] Date/Time: 01/18/2024 9:56 AM * Kasandra Hurt [...] Yes Name and Contact information: Gian Styles ([phone]) Would you like to add additional adult [...] Care Team?: Yes Patient Care Team: Zuly Aichholz, TRAILHEAD MAINTENANCE WORKER as PCP - General Evan White, DO [...] oxygen?: Yes Oxygen Provider and Contact : Lattice PowerFlow?: Order for oxygen use?: unknown at this [...] patient on Anticoagulation? : No [id number] [place] [address] - [address] [facility] [address] [address] News Intern Does the patient or sales utility representative express financial concerns? : No Employed?: Disabled Coping/Stress Concerns about patient s coping and stress?: No Concerns about patient s caregiver s coping and stress?: No Values and Beliefs Cultural or synagogue practices that may impact discharge planning and/or [...] 1. Identified self and role as Sales Utility Representative. 2. Confirmed and updated demographics and treatment team. 3. Sales Utility Representative will continue to follow with medical team for any other additional discharge needs. Kasandra DON RN [facility] [phone] *Please note I am float and work Thursday and Thursday every other week. Please call [phone] for assist in my absence. * Yury Ozuna MD - 01/17/2024 1:57 PM EST Internal Medicine Daily Progress Note Patient: George Styles, 1970, [id number] Physician: Yury Ozuna MD, PGY1, Pager #[phone], XD9 service Assessment/Plan: Updates: - continue diuresis with [...] 5mg CAD: non-obstructive CAD on [facility] 2018. - continue home aspirin 81mg [...] Full Code Discussed with team and attending, Reese Sage MD , on rounds. Signed, Yury [...] Infectious Disease recommendations. Finally, ordered 2D echo. Reese Sage MD, MADISONN [facility] Cutter [facility] Clinical Medicine [facility] [employer] [facility] documented in this [facility] Plan of care note* Plan of [...] (Acute Pain): verbalization of pain descriptors [facility]02-23-[facility]24 Hospital Discharge instructions* Discharge Instructions* Arelis Mera [...] your doctor for further instructions. Please call [phone], Option 1 or [phone] to schedule your appointment with the Heart Failure Clinic. * Discharge Instr - Wound Care* Arelis Mera MD - 01/22/2024 3:08 PM EST You can change your dressing 48 hours from the procedure * Attachments The following attachments cannot be sent through Care Everywhere. * Heart Failure: Avoiding Triggers (Senegalese) * Heart Failure: Limiting Sodium (Senegalese) * Pain and Pain Control ([facility]) (Senegalese) documented in [facility] encounterOS[facility] Surgery Postoperative evaluation and management note* Brief Op Note - Jyoti Bryant MD, PhD - 01/22/2024 1:34 PM EST George Styles ([id number]) PRE OPERATIVE DIAGNOSIS High output congestive heart failure [I50.83] POST OPERATIVE DIAGNOSIS Post-Op Diagnosis Codes: * High output congestive heart failure [I50.83] PROCEDURE PERFORMED Procedure(s) (LRB): LIGATION ANGIOACCESS AVF (Left) Resection of large aneurysmic vein PRIMARY CLOSURE Yes INTRAOPERATIVE FINDINGS No significant abnormalities SURGEON Surgeons and Role: * Jyoti Bryant MD, PhD - Primary ANESTHESIOLOGIST Anesthesiologist: Celena Tiwari MD; Kehinde Gutierrez MD ASPHALT MIXER: Raheem Jasso APRN-ASPHALT MIXER Civil Design Technician Assisting: Mini Khan MD SURGICAL STAFF Medical Billing Clerk: Zoila Lawrence RN Relief Medical Billing Clerk: Marimar Saravia RN Relief Scrub: Briseyda Self Scrub Person: Cinda Mai RN Resident Assisting: Leonel Harris DO Fellow: Miki Mcgowan MD, MBBS COMPLICATIONS None ESTIMATED BLOOD LOSS Minimal SPECIMENS No specimen sent * No specimens in log * Jyoti Bryant MD, PhD January 22, 2024 1:[address] [facility] Work Phone: [phone] Nurse Note* Nursing Notes - Justin Almendarez RN - 01/22/2024 1:24 PM EST Arrived to PACU assisted by anesthesiology. Connected to monitors. Turned side to side, OR linens removed, repositioned. Airway patent, patient breathing easily. Report received from regional vice president life sales and report received from anesthesiology. Pt arrived awake. VSS. Sats slightly low. Pulm rehab used. Sats currently 3lpm @ 93%. Pt states he uses CPAP nocturnally. A&Ox4. Nerve block left arm, elevated. [facility]02-23-2024 Surgery Postoperative evaluation and management note* [...] Axillary block. SURGEON(S): Jyoti Bryant MD, PHD ALL SOURCE INTELLIGENCE TECHNICIAN: Mynor Fall MD ESTIMATED BLOOD LOSS: Minimal. [...] Jyoti Bryant MD, PHD ATTENDING SHANNON/Constanza JOB: [id number] DOC: [id number] [facility]02-23-2024 Plan of care note* Plan of Care [...] 1939 Plan Of Care Reviewed With: patient [facility]02-21-2024 Consult note* Starla Morris MD - 01/20/2024 2:15 PM ESTAssociated Order(s): IP CONSULT TO SURGERY - TRANSPLANT (RENAL) Images from the original note were not included. TRANSPLANT SURGERY CONSULT NOTE: Consult: 01/20/2024, 4:03 PM Freight Broker Agent: Starla Morris MD Reason for Consult: Requesting Dr Carson Bryant for AVF revision/closure given new onset high output heart failure George Styles is a 53 y.o. male CURRENT HOSPITALIZATION LOS: Admit Date: 01/16/2024 [facility] LOS: 4 days George Styles is [...] DAY SURGERY MAIN OR KIDNEY TRANSPLANT W/O KNIK NEPHRECTOMY N/A 04/12/2020 Laterality: N/A; Surgeon: LU [...] solution 100 mg 100 mg Oral Q12H iTmothy Joseph MD 100 mg at 01/20/24 0919 Melatonin tablet 6 mg 6 mg Oral QHS PRN Jasper Groves MD 6 mg at 01/19/242043 Mycophenolate sodium (MYFORTIC) tablet DR 360 mg 360 mg Oral bid Timothy Joseph MD 360 mg at 01/20/24 09 Ondansetron 4mg/2ml (ZOFRAN) injection 4 mg 4 [...] seen and staffed with Dr. Mcgowan fellow electronic warfare specialist Thank you, Starla Morris MD Associated attestation - Jyoti Bryant MD, PhD - 01/22/2024 10:54 AM EST Beata Bryant MD, PhD, have independently seen and examined the patient, reviewed the labs, discussed the patient with the fellow/resident and agree with the note. [facility] Work Phone: 1(520) 955-701302-21-2024 Consult note* Starla Morris MD - 01/20/2024 2:15 PM ESTAssociated Order(s): IP CONSULT TO SURGERY - TRANSPLANT (RENAL) Images from the original note were not included. TRANSPLANT SURGERY CONSULT NOTE: Consult: 01/20/2024, 4:03 PM Freight Broker Agent: Starla Morris MD Reason for Consult: Requesting Dr Carson Bryant for AVF revision/closure given new onset high output heart failure George Styles is a 53 y.o. male CURRENT HOSPITALIZATION LOS: Admit Date: 01/16/2024 [facility] [place] LOS: 4 days George Styles is [...] DAY SURGERY MAIN OR KIDNEY TRANSPLANT W/O KNIK NEPHRECTOMY N/A 04/12/2020 Laterality: N/A; Surgeon: LU [...] AV Access 04/09/20138 HEMODIALYSIS USE ONLY;Hemodialysis 04/09/20138 --1381 Fluid Management (24hrs): Intake/Output last 3 [...] seen and staffed with Dr. Mcgowan fellow electronic warfare specialist Thank you, Starla Morris MD Associated attestation - Jyoti Bryant MD, PhD - 01/22/2024 10:54 AM EST I. Jyoti Bryant MD, PhD, have independently seen and examined the patient, reviewed the labs, discussed the patient with the fellow/resident and agree with the note. * Hank Noel MD - 01/18/2024 1:24 PM ESTAssociated Order(s): IP CONSULT TO HEPATOBILIARY [facility] Main Hepatology Consult WebExchange --> IM Consult Serv [facility] --> [facility] Main Hepatology consult service [...] 05/17/2022 Surgeon: Enzo Heart DO; Location: [facility] INTERVENTIONAL RADIOLOGY (VIR) LIVER TRANSPLANT, ORTHOTOPIC N/A 04/12/2020 Laterality: N/A; Surgeon: LU Palma; Location: [facility] SAME DAY SURGERY MAIN OR KIDNEY TRANSPLANT W/O KNIK NEPHRECTOMY N/A 04/12/2020 Laterality: N/A; Surgeon: LU Palma; Location: [facility] SAME DAY SURGERY MAIN OR OTHER [...] (order for outpatient) Please SecureChat or Call ([phone]) for any questions. Await attending attestation for final recommendations. Hank Noel MD Division of Gastroenterology, Hepatology, and Nutrition Clinical Fellow, PGY-5 Pager: [phone] For urgent/stat calls or consults 5pm to 7am, please page the on-call GI fellow on QGenda. [facility]--> Internal Medicine--> Gastroenterology, Hepatology, & Nutrition--> 1st Call Fel Alysia For urgent/stat calls or consults 7am to 5pm during the weekend, please page the on-call GI fellow on QGenda. [facility]--> Internal Medicine--> Gastroenterology, Hepatology, & Nutrition--> All Hep & East Wknd Cons For follow up questions regarding this patient 7am to 5pm during the weekday, contact the Hepatology consults fellow or CARLOS A on [facility]. [facility]--> Internal Medicine--> [...] Michael Estrada MD, MSc documented in this encounterU [facility] Nurse Note* Nursing Notes - Paulette Cordon [...] rest, 95-96% when talking/moving. Paulette Cordon RN [facility]02-20-2024 Nurse Note* Nursing Notes - Tati Charles RN - 01/19/2024 12:10 AM EST Paged overnight coverage, Jasper Gastelum MD, via pager #[phone] Pt- George Styles. Sarah 1082. TM1. Was wondering if he can have his Melatonin order increased to 6mg. Per pt, he usually takes 8mg at home. -SAMI Duffy #[phone] Tati Charles RN [facility]02-19-2024 Consult note* Hank Noel MD - 01/18/2024 1:24 PM ESTAssociated Order(s): IP CONSULT TO HEPATOBILIARY [facility] Main Hepatology Consult WebExchange --> IM Consult Serv [facility] --> [facility] Main Hepatology consult service [...] 05/17/2022 Surgeon: Enzo Heart DO; Location: [facility] INTERVENTIONAL RADIOLOGY (VIR) LIVER TRANSPLANT, ORTHOTOPIC N/A 04/12/2020 Laterality: N/A; Surgeon: LU Palma; Location: [facility] SAME DAY SURGERY MAIN OR KIDNEY TRANSPLANT W/O KNIK NEPHRECTOMY N/A 04/12/2020 Laterality: N/A; Surgeon: LU Palma; Location: [facility] SAME DAY SURGERY MAIN OR OTHER [...] (order for outpatient) Please SecureChat or Call ([phone]) for any questions. Await attending attestation for final recommendations. Hank Noel MD Division of Gastroenterology, Hepatology, and Nutrition Clinical Fellow, PGY-5 Pager: [phone] For urgent/stat calls or consults 5pm to 7am, please page the on-call GI fellow on [facility]--> Internal Medicine--> Gastroenterology, Hepatology, & Nutrition--> 1st Call Janae Hatfield For urgent/stat calls or consults 7am to 5pm during the weekend, please page the on-call GI fellow [facility]--> Internal Medicine--> Gastroenterology, Hepatology, & Nutrition--> [...] outpatient) Michael Estrada MD, MSc [facility] Work Phone: 1(527) 209-345102-17-2024 Plan of care note* Plan of Care - Arelis Mera MD - 01/16/2024 7:27 AM EST Internal Medicine Daily Progress Note Patient: George Styles, 1970, [id number] Physician: Arelis Mera MD, PGY3, Pager #[phone], TM2 service Assessment/Plan: George Styles is a [...] 5mg CAD: non-obstructive CAD on [facility] 2019. - continue home aspirin 81mg [...] Code Discussed with team and attending, Dr Reese Sage MD, on rounds. Signed, Arelis Mera MD [facility]02-17-2024 Nurse Note* Nursing Notes - Izzy Gutierrez RN - 01/16/2024 1:41 AM EST Mr. Styles was admitted to [address] [place] [address]. On admission to [facility], from outside facility a dual RN initial assessment of skin condition was performed by Izzy Gutierrez RN and Leroy Singleton RN. Skin Assessment: Skin within defined limits:Yes Jose Score: 20 W[employer] Guidance Counselor images obtained: No LDA Added: No Based [...] to nurses station when available. [facility]02[facility]2024 History and physical note* Timothy Joseph MD - 01/16/2024 1:13 AM EST Images from the original note were not included. Internal Medicine Admission History & Physical Patient: George Styles, 1970, [id number] Physician: Timothy Joseph MD, PGY1, Pager #[phone], TM 1 service Date of face to [...] 05/17/2022 Surgeon: Enzo Heart DO; Location: [facility] INTERVENTIONAL RADIOLOGY (VIR) LIVER TRANSPLANT, ORTHOTOPIC N/A 04/12/2020 Laterality: N/A; Surgeon: LU Palma; Location: [facility] SAME DAY SURGERY MAIN OR KIDNEY TRANSPLANT W/O KNIK NEPHRECTOMY N/A 04/12/2020 Laterality: N/A; Surgeon: LU Palma; Location: [facility] SAME DAY SURGERY MAIN OR OTHER [...] itraconazole Fax results to: Dr. White - [phone] Transplant Neph - [phone] Gabapentin 400 MG capsule Sig: Take 1 [...] erythema: Skin: No jaundice or rash Neuro: alum plant operator 3-7, 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 Strength [...] 5mg CAD: non-obstructive CAD on [facility] 2018. - continue home aspirin 81mg daily Gout: continue home allopurinol 200mg daily BPH: continue home flomax 0.4mg daily Complexity. Obesity Body mass index is 32.8 kg/m . - Follow with PCP for dietary and lifestyle modifications. Any conditions listed below are present on admission unless otherwise specified. . DVT prophylaxis with lovenox Disposition: admitted to [facility] Code status is Full Staffed [...] Pierson, Luisa Steven, Renee Freed, Daisha Max Employment Consultant: José Miguel Garnica All Txt: 04/13/2020 [...] results found for: CYCLOSPORIN , CYCLOSPORIN2 , [id number] , CYCLORAND No results found for: SIROLIMUS [...] imaging per Infectious Disease request in chart. Reese Sage MD Pager [phone] [facility]02-17-2024 History and physical note* Timothy Joseph MD - 01/16/2024 1:13 AM EST Images from the original note were not included. Internal Medicine Admission History & Physical Patient: George Feliz Jensen, 1970, [id number] Physician: Timothy Joseph MD, PGY1, Pager #[phone], TM 1 service Date of face to [...] 05/17/2022 Surgeon: Enzo Heart DO; Location: [facility] INTERVENTIONAL RADIOLOGY (VIR) LIVER TRANSPLANT, ORTHOTOPIC N/A 04/12/2020 Laterality: N/A; Surgeon: LU Palma; Location: [facility] SAME DAY SURGERY MAIN OR KIDNEY TRANSPLANT W/O KNIK NEPHRECTOMY N/A 04/12/2020 Laterality: N/A; Surgeon: LU Palma; Location: [facility] SAME DAY SURGERY MAIN OR OTHER [...] itraconazole Fax results to: Dr. White - [phone] Transplant Neph - [phone] Gabapentin 400 MG capsule Sig: Take 1 [...] erythema: Skin: No jaundice or rash Neuro: alum plant operator 3-7, 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 Strength [...] 5mg CAD: non-obstructive CAD on [facility] 2019. - continue home aspirin 81mg daily Gout: continue home allopurinol 200mg daily BPH: continue home flomax 0.4mg daily Complexity. Obesity Body mass index is 32.8 kg/m . - Follow with PCP for dietary and lifestyle modifications. Any conditions listed below are present on admission unless otherwise specified. . DVT prophylaxis with lovenox Disposition: admitted to [facility] Code status is Full Staffed [...] Pierson, Luisa Steven, Renee Freed, Daisha Max Employment Consultant: José Miguel Garnica All Txt: 04/13/2020 [...] results found for: CYCLOSPORIN , CYCLOSPORIN2 , [id number] , CYCLORAND No results found for: SIROLIMUS [...] imaging per Infectious Disease request in chart. Reese Sage MD Pager [phone] documented in [facility] History of Present illness Narrative* Vladislav Hed - 01/12/2024 3:09 PM EST [facility] [...] Prograf 0.2 MG Contact Info: Specialty ([place]anc[place]) [phone] [facility] [place] [phone] [facility] [phone] Raheem [phone] Bedside Delivery ([facility]) [phone] * Anne Choudhury - 01/12/2024 3:09 PM EST [facility] RX OUTREACH ADVANCED: Call Information: Date and Time of Contact: 01/25/2024 10:23 AM Method of Contact: By Phone Contact Type: Prescriptions Contactor: [facility] Contactee: Patient Contact Outcome: Left message (prograf myco) Contact Info: Specialty (Yanci) [phone] [facility] [place] [phone] [facility] [phone] Raheem [phone] Bedside Delivery ([facility]) [phone] documented in [address]Mer[facility] History of Present illness Narrative* Vladislav Mcnally [...] Prograf 0.2 MG Contact Info: Specialty (Yanci) [phone] [facility] [place] [phone] [facility] [phone] Raheem [phone] Bedside Delivery ([facility]) [phone] * Anne Choudhury - 01/12/2024 3:09 PM EST [facility] RX OUTREACH ADVANCED: Call Information: Date and Time of Contact: 01/25/2024 10:23 AM Method of Contact: By Phone Contact Type: Prescriptions Contactor: [facility] Contactee: Patient Contact Outcome: Left message (prograf myco) Contact Info: Specialty ([place]) [phone] [facility] [place] [phone] [facility] [phone] Raheem [phone] Bedside Delivery ([facility]) [phone] * Anne Choudhury - 01/12/2024 3:09 PM EST [facility] RX OUTREACH ADVANCED: Call Information: Date and Time of Contact: 01/27/2024 10:19 AM Method of Contact: By Phone Contact Type: Prescriptions Contactor: [facility] Contactee: Patient Contact Outcome: Left message (myco prograf) Contact Info: Specialty (Yanci) [phone] [facility] [place] [phone] [facility] [phone] Raheem [phone] Bedside Delivery ([facility]) [phone] documented in this encounterU [facility] History of Present illness Narrative* Vladislav Mcnally [...] Name: Prograf 0.2 MG Contact Info: Specialty ([place]) [phone] [facility] [place] [phone] [facility] [phone] [facility] [phone] Bedside Delivery ([facility]) [phone] * Anne Choudhury - 01/12/2024 3:09 PM EST [facility] RX OUTREACH ADVANCED: Call Information: Date and Time of Contact: 01/25/2024 10:23 AM Method of Contact: By Phone Contact Type: Prescriptions Contactor: [facility] Contactee: Patient Contact Outcome: Left message (prograf myco) Contact Info: Specialty ([place]) [phone] [facility] [place] [phone] [facility] [phone] [facility] [phone] Bedside Delivery ([facility]) [phone] * Anne Choudhury - 01/12/2024 3:09 PM EST [facility] RX OUTREACH ADVANCED: Call Information: Date and Time of Contact: 01/27/2024 10:19 AM Method of Contact: By Phone Contact Type: Prescriptions Contactor: [facility] Contactee: Patient Contact Outcome: Left message (myco prograf) Contact Info: Specialty (Yanci) [phone] [facility] [place] [phone] [facility] [phone] [facility] [phone] Bedside Delivery ([facility]) [phone] * Andressa Gutiérrez - 01/12/2024 3:09 PM EST [facility] RX OUTREACH ADVANCED: Call Information: Date and Time of Contact: 02/01/2024 3:22 PM Contact Type: Prescriptions Contactor: [facility] Contactee: Patient Contact Outcome: Left message Shipping/Pickup: Medication Name: Mycophenolate 360mg and Prograf 0.2mg Pack Contact Info: Specialty ([place]) [phone] Jakob [phone] [facility] [phone] Raheem [phone] Bedside Delivery ([facility]) [phone] documented in this encounterOSU [facility] History of Present illness Narrative* Zuly Bruno [...] neurologist wanted to send him to [facility] but it is out of network * Zuly Bruno NP - 01/06/2024 9:00 AM EST Images from [...] Atherosclerosis 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) documented in this encounterGolden Valley Memorial [phone] Evaluation note* Author Yoselyn Goins [facility] Authored December 15, 2024 9 :35am [...] twice or three times daily if needed. [facility] Work Phone: [phone]) 689-910711-07-2023 History of Present illness Narrative* Vladislav Mcnally [...] Prograf 0.2 MG Contact Info: Specialty (Yanci) [phone] Jakob [phone] [place] [phone] Raheem [phone] Bedside Delivery ([facility]) [phone] * Gabbi Rajput - 10/06/2023 9:30 AM EST [facility] RX OUTREACH ADVANCED: Call Information: Date and Time of Contact: 10/23/2023 2:00 PM Method of Contact: By Phone Contact Type: Prescriptions Contactor: [facility] Contactee: Patient Contact Outcome: Left message and Call back later Shipping/Pickup: Medication Name: Mycophenolate 360mg and Prograf 0.2mg Contact Info: Specialty ([place]) [phone] Jakob [phone] [facility] [phone] Raheem [phone] Bedside Delivery ([facility]) [phone] documented in [address] encounterMer[facility]10-13-2023 Miscellaneous Notes* Nursing Notes - Cheyanne [...] pt will nut picker his oxygen from [facility] [facility], 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 This [...] AM EDT Patient seen ambulating in the gallo with PRODUCTION PROOFREADER. Patient was mildly short of breath on [...] Ongoing * Plan of Care - Keyla Russell RN - 09/06/2023 8:15 AM EDT Problem: [...] outcome * Plan of Care - Fredi Mcfarlane OT - 09/05/2023 2:50 PM EDT Problem: [...] Outcome: Ongoing * Plan of Care - Raheem Sutherland PT - 09/05/2023 9:25 AM EDT [...] shows respiratory alkalosis in setting of hypoxemia. (7.48///22) Relevant Microbiologic Data: CMV, EBV, BK, RVP, [...] 3:30 AM EDT Messaged Mainor Loomis, via [employer] secure chat, Temp 100.8. His tylenol order [...] short period of time. 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 Episode [...] 7:30 PM EDT Message Mainor Loomis, via [employer] secure chat, Good evening, just an FYI, [...] pending histo, parvovirus Plan discussed with Dr. Diza. Attending attestation to follow. Bony Waters Interval [...] short period of time. 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 This [...] 8:[address] Loera here also (patients transporter) * Nursing Notes - Mary Case RN [...] 1046 Sleep/Rest Enhancement: regular sleep/rest pattern promoted * Nursing Notes - Erica Houston RN - 08/29/2023 10:49 PM EDT Sent a secure Wiziva[employer] chat to Rosi LUZ concerning patient's temp [...] PM EDT Mr. Styles was admitted to [address] [place] [address]. On admission to R[facility], from home a [...] nurses station when available. documented in this encounterU [facility] History of Present illness Narrative* BENJY Syed - 09/11/2023 2:30 PM EDT Provided follow-up emotional and spiritual support. Patient shared about rosemary of discharge and looking forward to seeing family Darkroom Technician provided: - Supportive presence - Active listening - Validation of feelings/emotions Patient encouraged to request a electric knife operator as needed. Chaplains are available in-house 24 hours a day and 7 days a week. For urgent matters in [facility], please page [phone]. If the request is not urgent, please enter a consult. Consults are responded to within 24 hours. Senior Staff Darkroom Technician Angie Singh Mdiv, [facility] Kirk [phone] [email or web address] 22/06 On-call [place]: [phone] 22/06 Pager ,BS, and Brock Hernandez Pager [phone] 09/11/23 1430 Clinical Encounter Type Visited With Patient Visit Type Follow-up Pastoral Time Spent 15 min Referral Other (See Comment) (rounding) Spiritual Assessment Spiritual Observation Spirituality helpful Emotional Observation Coping well Hope Observation Specific hope focus Support Observation By Family Interventions Provided Active listening;Supportive presence Facilitated Verbalization of feelings Explored Expectations Instructional Writer Education Instructional Writer Service Available Yes Educated Patient Plan of Care Continue Visiting PRN * Dimitrios Gurrola [facility],PharmD - 09/11/2023 10:51 AM EDT Images from the original note were not included. [facility] Note: Non-Verbal Med Rec [facility] received the following discharge prescription(s): Total cost is $0. I have reviewed the Discharge Rx Reconciliation Report. The discharge prescription(s) will be delivered to the patient on 09/11/2023. 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 His pit [place] kidney disease was noted to be presumed [...] ag ain had increased oxygen requirements on 10 am [...] BID CAD: non-obstructive CAD on [facility] 2018. - continue home aspirin 81mg daily, holding atorvastatin 20mg daily Gout: continue home allopurinol 200mg daily BPH: continue home flomax 0.4mg daily DVT PPX: SQH Code Status: Full Code Disposition: Pending clinical course. Anticipate eventual discharge home. Discussed with team and attending, Reese Sage MD, on rounds. Signed, Evan Kelly [...] CREATSERUM 1.17 04/28/2023 CREATSERUM 5.05 (H) 11/19/2018 Reese Sage MD, SERA [facility] * Lora Lawrence RN - 09/10/2023 1:45 PM EDT Images from the original note were not included. Final Discharge Planning and Transportation Final Discharge Planning Discharge Disposition: Home Services at Discharge: Outpatient clinical services (ie: lab draws, transfusions, injectables) (Home Oxygen by [facility]) Selected Continued Care - Admitted Since 08/28/2023 Durable Medical Equipment Coordination complete. Service Provider Selected Services Address Phone Fax Patient Preferred [employer] Durable Medical Equipment [address] [facility] [id number] Internal Comment last updated by Lora Lawrence RN 09/10/2023 1334 Correct contact information: [employer] [address] [place] [address] [place] [address] ostomy nurse- you do not need to call at discharge, I already notified the company. Addendum [phone] [facility] notified this CM they are out of patient's insurance area and will not be able to service this patient at time of discharge. Provider notified. Addendum [phone] Dr Kelly called [facility] spoke to Lynn and she said they are willing to accept patient if the patient would drive to the [place] office and nut picker the supplies. Patient [...] Colón RN, MSN, CCM, CMCN Clinical Sales Utility Representative- [facility] Transplant #[phone] * Matt Kramer RPh,PharmD - 09/10/2023 11:32 AM EDT Department of [...] dose adjustment Name: Matt Kramer RPh,PharmD Phone: [phone] Date/Time: 09/10/2023 11:33 AM * Lora Lawrence RN - 09/10/2023 11:08 AM EDT This CM sent referral via Aidin for O2 concentrator to 4 agencies Start date today Timer [facility] [employer] [place] [employer] Addendum 1332 One accepting company reserved in [facility] [facility] [address] [place] [address] Lora Colón RN, MSN, CCM, CMCN Clinical Sales Utility Representative- [facility] Transplant #[phone] * Cecilia Mattson, DT - 09/09/2023 3:18 PM EDT NUTRITION FOLLOW-UP Nutrition Plan of Care: 1. Continue current diet order. 2. No oral supplements warranted at this time. 3. Monitor for significant weight changes. Monitor GI, skin integrity. 4. Monitor and encourage po intakes with goal of average po being 75-100%. 5. polytechnic teacher to follow. Met with patient today at [...] five days is 94% of 9 meals. Noreport of n/v/c/d identified. Pt without significant weight changes. No oral supplement warranted at this time. Will continue to monitor. RHIANNON [place]R Pager:[phone] * Evan White, DO - 09/09/2023 12:28 [...] sign off. Please Epic message or page [phone] with questions. 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 His [place] kidney disease was noted to be presumed [...] BID CAD: non-obstructive CAD on [facility] 2018. - continue home aspirin 81mg daily, holding atorvastatin 20mg daily Gout: continue home allopurinol 200mg daily BPH: continue home flomax 0.4mg daily DVT PPX: SQH Code Status: Full Code Disposition: Pending clinical course. Anticipate eventual discharge home. Discussed with team and attending, Reese Sage MD, on rounds. Signed, Evan Kelly [...] to follow. Please Epic message or page [phone] with questions. 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 His [place] kidney disease was noted to be presumed [...] BID CAD: non-obstructive CAD on [facility] 2018. - continue home aspirin 81mg daily, holding atorvastatin 20mg daily Gout: continue home allopurinol 200mg daily BPH: continue home flomax 0.4mg daily DVT PPX: SQH Code Status: Full Code Disposition: Pending clinical course. Anticipate eventual discharge home. Discussed with team and attending, Reese Sage MD, on rounds. 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 His [place] kidney disease was noted to be presumed [...] BID CAD: non-obstructive CAD on [facility] 2018. - continue home aspirin 81mg daily, holding atorvastatin 20mg daily Gout: continue home allopurinol 200mg daily BPH: continue home flomax 0.4mg daily DVT PPX: SQH Code Status: Full Code Disposition: Pending clinical course. Anticipate eventual discharge home. Discussed with team and attending, Reese Sage MD, on rounds. Signed, Evan Kelly [...] CREATSERUM 1.17 04/28/2023 CREATSERUM 5.05 (H) 11/19/2018 Reese Sage MD, MADISONN [facility] Clinical Medicine [facility] * Ann Marie Haskins [...] to follow. Please Epic message or page [phone] with questions. Ann Marie Haskins MD PGY-4, [...] he continues to improve. Please message via [employer] secure chat or page with any questions or concerns. Evan White DO [facility] Division of Infectious Disease * Evan White [...] to follow. Please Epic message or page [phone] with questions. Evan Whiet DO Transplant Infectious Diseases * Crow Diaz MD - 09/06/2023 1:02 PM EDT Images from the original note were not included. Pulmonary/Critical Care Medicine Daily Progress Note Reason for Consultation: bronch for infectious workup Requesting Physician: Dr. Sage CURRENT HOSPITALIZATION: Admit Date: 08/28/2023 [facility] LOS: 9 days Impression 1. Acute [...] and interpreted reviewed the radiographic data in [facility]. 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 His [place] kidney disease was noted to be presumed [...] BID CAD: non-obstructive CAD on [facility] 2019. - continue home aspirin 81mg daily, holding atorvastatin 20mg daily Gout: continue home allopurinol 200mg daily BPH: continue home flomax 0.4mg daily DVT PPX: SQH Code Status: Full Code Disposition: Pending clinical course. Anticipate eventual discharge home. Discussed with team and attending, Reese Sage MD, on rounds. Signed, Evan Kelly [...] CREATSERUM 1.17 04/28/2023 CREATSERUM 5.05 (H) 11/19/2018 Reese Sage MD, SERA [facility] * Crow Diaz MD - 09/05/2023 4:33 PM EDT Images from the original note were not included. Pulmonary/Critical Care Medicine Daily Progress Note Reason for Consultation: bronch for infectious workup Requesting Physician: Dr. Sage CURRENT HOSPITALIZATION: Admit Date: 08/28/2023 [facility] LOS: 8 days Impression 1. Acute [...] and interpreted reviewed the radiographic data in [facility]. * Fredi Mcfarlane OT - 09/05/2023 2:50 [...] Assessment: Transfer Assessment: Sit to Stand Transfer [place] Level: Sit->Stand: independent Skilled Intervention/Details: Sit->Stand: x1 from EOB, x1 from toilet Stand to Sit Transfer [place] Level: Stand->Sit: independent Skilled Intervention/Details: Stand->Sit: x1 to toilet, x1 to EOB Functional Mobility: Functional Mobility [place] Level: Functional Mobility/Gait: independent Ambulation Distance (Feet): 20 Skilled Intervention/Details - Functional Mobility/Gait: pt performed functional mobility to/from RR w/ no overt LOB Outcome Score(s): [facility]RENT [facility] Daily Activity Inpatient Short Form Putting on/Taking Off Lower Body Clothin - A Little Assistance Bathin - A Little Assistance Toiletin - A Little Assistance Putting on/Taking Off Upper Body Clothin - No Assistance Groomin - No Assistance Eatin - No Assistance [facility] Activity Raw Score: 21 [facility]RENT [facility] Activity Functional Limitation/Modifier: 32.79% Currently Impaired [...] the current Occupational Therapy Discharge Summary. * Raheem Sutherland PT - 09/05/2023 9:25 AM EDT [...] Intact Mobility Assessment: Supine to Sit Mobility [place] Level: Supine->Sit: modified independence Bed Features/Set-up: Supine->Sit: Head of bed elevated Sit to Supine Mobility [place] Level: Sit->Supine: not tested Balance: Sitting Balance [...] environment. Transfer Assessment: Sit to Stand Transfer [place] Level: Sit->Stand: independent Skilled Intervention/Details: Sit->Stand: From EOB x 2 without difficulty. Stand to Sit Transfer [place] Level: Stand->Sit: independent Assistive Device: Stand->Sit: armed chair Skilled Rationale: Verbal cues, Positioning Gait/Functional Mobility: Gait Assessment [place] Level: Gait: stand-by assist Assistive Device: Gait: rollator Ambulation Distance (Feet): 400 Gait Deviations Identified: decreased grace, decreased gait speed Gait Skilled Rationale: verbal, upright posture, increase step length, increase foot clearance Skilled Intervention/Details - Gait: Reasonable foot clearnce without loss of balance but endorsingdyspnea as 6-7/10. Stairs: Stairs Assessment [place] Level: Stair Negotiation: not tested Outcome Score(s): CURRENT [facility] Basic Mobility Inpatient Short Form Turning over in bed: 4 - No Assistance Sitting/standing from chair: 4 - No Assistance Moving from lying on back to sittin - No Assistance Moving to and from bed to chair: 3 - A Little Assistance Walk in hospital room: 3 - A Little Assistance Climbing 3-5 steps with a railin - A Little Assistance CURRENT [facility] Mobility Raw Score: 21 CURRENT [facility] Mobility Functional Limitation/Modifier: 28.97% Currently Impaired [...] Daily Progress Note Patient: George Styles, 1970, [id number] Physician: Evan Kelly MD, PGY-1, TM1 service [...] 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 His [place] kidney disease was noted to be presumed [...] BID CAD: non-obstructive CAD on [facility] 2018. - continue home aspirin 81mg daily, holding atorvastatin 20mg daily Gout: continue home allopurinol 200mg daily BPH: continue home flomax 0.4mg daily DVT PPX: SQH Code Status: Full Code Disposition: Pending clinical course. Anticipate eventual discharge home. Discussed with team and attending, Reese Sage MD, on rounds. Signed, Evan Kelly [...] CREATSERUM 1.17 04/28/2023 CREATSERUM 5.05 (H) 11/19/2018 Reese Sage MD, SERA [facility] * Evan White, [...] to follow. Please Epic message or page [phone] with questions. Evan White, DO Transplant Infectious Diseases * Evan Kelly MD - 09/04/2023 1:20 PM EDT Images from the original note were not included. 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 His [place] kidney disease was noted to be presumed [...] BID CAD: non-obstructive CAD on [facility] 2018. - continue home aspirin 81mg daily, holding atorvastatin 20mg daily Gout: continue home allopurinol 200mg daily BPH: continue home flomax 0.4mg daily DVT PPX: SQH Code Status: Full Code Disposition: Pending clinical course. Anticipate eventual discharge home. Discussed with team and attending, Reese Sage MD, on rounds. Signed, Evan Kelly [...] immunosuppression given interaction with P 450 system Reese Sage MD, FASN [facility] [employer] [facility] * Laurel [...] MD, PhD Internal Medicine and Pediatrics PGY-3 [facility] * Laurel Serrano MD, PhD - [...] MD, PhD Internal Medicine and Pediatrics PGY-3 [facility] * Evan White, DO - 09/03/2023 3:38 [...] continue tofollow. Please Epic message or page [phone] with questions. 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 His pit [place] kidney disease was noted to be presumed [...] function CAD: non-obstructive CAD on [facility] 2018. - continue home aspirin 81mg daily, holding atorvastatin 20mg daily Gout: continue home allopurinol 200mg daily BPH: continue home flomax 0.4mg daily DVT PPX: SQH Code Status: Full Code Disposition: Pending clinical course. Anticipate eventual discharge home. Discussed with team and attending, Reese Sage MD, on rounds. 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 His pit [place] kidney disease was noted to be presumed [...] function CAD: non-obstructive CAD on [facility] 2018. - continue home aspirin 81mg daily, atorvastatin 20mg daily Gout: continue home allopurinol 200mg daily BPH: continue home flomax 0.4mg daily DVT PPX: SQH Code Status: Full Code Disposition: Pending clinical course. Anticipate eventual discharge home. Discussed with team and attending, Reese Sage MD, on rounds. Signed, Evan Klely MD Attending Physician Addendum I saw and [...] CREATSERUM 1.17 04/28/2023 CREATSERUM 5.05 (H) 11/19/2018 Reese Sage MD, FASN [facility] Clinical Medicine [facility] * Lora Lawrence [...] Colón RN, MSN, CCM, CMCN Clinical Sales Utility Representative- R10 Transplant #[phone] * BENJY Syed - 09/02/2023 11:17 AM EDT Made introductory visit with patient. Provided emotional and spiritual support. Patient shared about: - Source of Rosemary: Camping/Fishing/Family - Spirituality/Islam Affiliation: raised Jew - Family Support/history - Experience with illness/hospital course - Hopes for healing/future Darkroom Technician provided: - Supportive presence - Active listening - Validation of feelings/emotions - Pledged prayer Patient encouraged to request a electric knife operator as needed. Chaplains are available in-house 24 hours a day and 7 days a week. For urgent matters in [facility], please page [phone]. If the request is not urgent, please enter a consult. Consults are responded to within 24 hours. Senior Staff Darkroom Technicianwilmer Singh Mdiv, [facility] [place] [phone] [email or web address] 22/06 On-call Kirk: [phone] 22/06 Pager KIKE SNIDER, and Brock Debbie Hernandez Pager [phone] 09/02/23 8201 Clinical Encounter Type Visited With Patient Visit Type Introduction Pastoral Time Spent 15 min Referral Other (See Comment) (rounding) Spiritual Assessment Spiritual Observation Spirituality helpful Emotional Observation Coping well Hope Observation Specific hope focus Support Observation By Family Interventions Provided Active listening;Supportive presence Facilitated Verbalization of feelings Explored Expectations Instructional Writer Education Instructional Writer Service Available Yes Educated Patient Outcomes Patient Outcomes Reduced distress Plan of Care Continue Visiting PRN * Ceciliaaugustine Mattson, DT - 09/02/2023 8:51 AM EDT NUTRITION RISK SCREENING NOTE Nutrition Plan of Care: 1. Continue current diet order. 2. No oral supplements warranted at this time. 3. Monitor for significant weight changes. Monitor GI and skin integrity. 4. Monitor and encourage po intakes with goal of average po being 100%. 5. polytechnic teacher to follow. George Styles is a 53 y.o. 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 His pit river kidney disease was noted to be presumed hepatorenal syndrome. His post- transplant course was noteworthy for nephrostomy tube (05/17/2022-09/10/2022) due to concern for ureteral stone. He presents as a direct admission for fever, cough, for infectious workup. Pt unavailable and information obtained via chart review Patrol Inspector Screening Pt's appetite is good. Pt with [...] with meds Food Allergies reviewed:Shellfish Cultural or Islam Restrictions/Preferences: None GI: Last Bowel Movement: 09/01/23 [...] Will continue to monitor. 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 His pit [place] kidney disease was noted to be presumed [...] function CAD: non-obstructive CAD on [facility] 2018. - continue home aspirin 81mg daily, atorvastatin 20mg daily Gout: continue home allopurinol 200mg daily BPH: continue home flomax 0.4mg daily DVT PPX: SQH Code Status: Full Code Disposition: Pending clinical course. Anticipate eventual discharge home. Discussed with team and attending, Reese Sage MD, on rounds. Signed, Evan Kelly MD Attending Physician Addendum I saw and personally examined Mr. Styles with the transplant medicine team. I discussed the findings and plan of the case. I agree with the history, physical examination, and medical decisions as outlined above. Reese Sage MD Pager [phone] * Heidy Chatman - 09/01/2023 2:00 PM EDTSummary: Pharmacy Med [...] further questions. Name: Heidy Chatman Phone #: [phone] Date/Time: 09/01/2023 2:01 PM Time Spent: 15 minutes Associated attestation - Matt Kramer RPh,Frankie - 09/01/2023 2:28 PM EDT Department of Pharmacy Admission Medication Reconciliation Note Patient: George Styles Room/Bed: 1062/A I have reviewed the home medication list with the Digital Sales Assistant. All changes to the home medication list have been updated in [facility]. Updated LITHOGRAPHIC PLATE MAKER APPRENTICE Med List: Prior to Admission Medications Prescriptions [...] questions. Name: Matt Kramer RPh,PharmD Phone #: [phone] Date/Time: 09/01/2023 2:28 PM * Evan White, DO - 08/31/2023 4:49 PM EDT Transplant [...] continue tofollow. Please Epic message or page [phone] with questions. Evan White DO Transplant Infectious Diseases * Evan Kelly MD - 08/31/2023 7:17 AM EDT Internal Medicine Daily Progress Note Patient: George Styles, 1970, [id number] Physician: Evan Kelly MD, PGY-1, TM1 service [...] s/p combined Liver-kidney transplant on 04/13/20. His [place] kidney disease was noted to be presumed [...] function CAD: non-obstructive CAD on [facility] 2018. - continue home aspirin 81mg daily, atorvastatin 20mg daily Gout: continue home allopurinol 200mg daily BPH: continue home flomax 0.4mg daily DVT PPX: SQH Code Status: Full Code Disposition: Pending clinical course. Anticipate eventual discharge home. Discussed with team and attending, Reese Sage MD, on rounds. Signed, Evan Kelly [...] CREATSERUM 1.17 04/28/2023 CREATSERUM 5.05 (H) 11/19/2018 Reese Sage MD, SERA [facility] Clinical Medicine [facility]plant [facility] * Kasandra Hurt RN [...] Yes Name and Contact information: Gian Styles ([phone]) Reviewed and Updated in Demographics? : Yes [...] patient on Anticoagulation? : No [id number] [place] [address] - [address] [facility] [address] [phone] News Intern Does the patient or sales utility representative express financial concerns? : No Employed?: Disabled Coping/Stress Concerns about patient s coping and stress?: No Concerns about patient s caregiver s coping and stress?: No Values and Beliefs Cultural or synagogue practices that may impact discharge planning and/or [...] 1. Identified self and role as Sales Utility Representative. 2. Confirmed and updated demographics and treatment team. 3. Sales Utility Representative will continue to follow with medical team/pt for any other additional discharge needs. Kasandra DON RN [facility] [phone] *Please note I am float and work Thursday and Thursday every other week. Please call [phone] for assist in my absence. 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 His [place] kidney disease was noted to be presumed [...] function CAD: non-obstructive CAD on [facility] 2019. - continue home aspirin 81mg daily, atorvastatin 20mg daily Gout: continue home allopurinol 200mg daily BPH: continue home flomax 0.4mg daily DVT PPX: SQH Code Status: Full Code Disposition: Pending clinical course. Anticipate eventual discharge home. Discussed with team and attending, Reese Sage MD, on rounds. 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 His [place] kidney disease was noted to be presumed [...] BID CAD: non-obstructive CAD on [facility] 2018. - continue home aspirin 81mg daily, atorvastatin 20mg daily Gout: continue home allopurinol 200mg daily BPH: continue home flomax 0.4mg daily DVT PPX: SQH Code Status: Full Code Disposition: Pending clinical course. Anticipate eventual discharge home. Discussed with team and attending, Reese Sage MD, on rounds. Signed, Laurel Serrano MD, PhD documented in this encounterOS[facility] Discharge instructions* Discharge Instructions* Laurel Serrano [...] get your fist check on September 14! * Discharge Instr - Activity* [...] focus on healthy foods. documented in this [facility]10-03-2023 Consult note* Izzy Loera MD - 09/01/2023 12:26 PM EDTAssociated Order(s): IP CONSULT TO PULMONOLOGY Pulmonary Medicine Inpatient Consultation Reason for Consultation: bronch for infectious workup Requesting Physician: Dr. Sage Pulmonary Attending Physician: Dr. Diaz CURRENT HOSPITALIZATION: Admit Date: 08/28/2023 [facility] LOS: 4 days Impression/Recommendations: George Styles [...] short period of time. 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 Other histories as documented in [...] ill contacts. He traveled to [place] to [facility] in May. REVIEW OF SYSTEMS A [...] CATHETER PERCUTANEOUS W/ IMAGE GUIDANCE 05/17/2022 Surgeon: Enoz Heart DO; Location: [facility] INTERVENTIONAL RADIOLOGY (VIR) LIVER TRANSPLANT, ORTHOTOPIC N/A 04/12/2020 Laterality: N/A; Surgeon: LU Palma; Location: [facility] SAME DAY SURGERY MAIN OR KIDNEY TRANSPLANT W/O KNIK NEPHRECTOMY N/A 04/12/2020 Laterality: N/A; Surgeon: LU Palma; Location: [facility] SAME DAY SURGERY MAIN OR OTHER [...] Alamo MD I can be reached via [employer]ge message (InterEx) or Pager #[phone] documented in this encounterMer[facility]29[facility] History and physical note* Aric Turner MD - 08/28/2023 6:14 PM EDT Images from the original note were not included. Internal Medicine Admission History & Physical Patient: George Styles, 1970, [id number] Physician: Aric Turner MD, PGY1, Pager #[phone], service Date of face to face patient [...] So he went to see the transplant tank crewmember. He was found elevated Cr and asked [...] Appetite is ok now. Urine is about 4754-6191 ml every day. 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 His [place] kidney disease was noted to be presumed [...] Urinary histoplasmosis - PJP, candid PCR - Freight Broker Agent transplant ID Acute Kidney Injury with Kidney [...] BID CAD: non-obstructive CAD on [facility] 2018. - continue aspirin 81mg daily, [...] Pierson, Luisa Steven, Renee Freed, Daisha Max Employment Consultant: José Miguel Garnica All Txt: 04/13/2020 [...] results found for: CYCLOSPORIN , CYCLOSPORIN2 , [id number] , CYCLORAND No results found for: SIROLIMUS [...] input from Infectious Disease. Rest as above. Reese Sage MD Pager [phone] documented in this encounterOSU [facility]09-29-[facility]23 History of Present illness Narrative* Rochelle Ribeiro RN - 08/28/2023 2:15 PM EDT Images from the original note were not included. 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 Employment Consultant: Anayeli Burt Date of Liver Transplant: 04/13/2020 (Kidney), 04/13/2020 (Liver) 3 years 4 months post Liver/Kidney Transplant Primary Disease: Hypertensive Nephrosclerosis Transplant [place].S. Representative: Erma Roe/ Daisha Max Primary Care physician: [...] aspirin, and faMOTIdine None Specified Preferred Lab: [facility] Change in lab frequency / new [...] 12 hours. ADDITIONAL INFORMATION: None Specified, [id number] [place] [address] - [address] [facility] [address] [address] [address] [facility] [address] [place] [address] [facility][id number] [place] [address] [address] [facility] [address] [place] [id number] [facility] Jakob [address], [place] [address] [facility] [address] ROS and SCREEN: Chest Pain: negative Cough: [...] EDT I saw George Styles at the [facility] on 08/28/2023. Patient is a 53 y.o. 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 Steve Munoz MD intake manager Division of Neph[facility] documented in this encounterMercy Health St. [facility]09-29-2023 Instructions* Patient Instructions* Mainor Busby RN - 08/28/2023 2:15 PM EDT - Admission for fevers, cough, and night sweats documented in this encounterMercy Health St. [facility]09-20-2023 History of Present illness Narrative* Andressa [...] Required: No Mailing/Pickup Date: 08/25/2023 Shipping Address: [address] [place] [address] 179 Contact Info: Specialty ([place]) [phone] [facility] [place] [phone] [facility] [phone] Raheem [phone] Bedside Delivery ([facility]) [phone] documented in this encounterU [facility]07-14-2023 History of Present illness Narrative* JEANNA Hess - 06/12/2023 3:00 PM EDT Images from the original note were not included. George Styles is a 53 y.o. 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 The HLA mismatch was 1A,2B, 1DR. No longer follows with a local tank crewmember. History of Present Illness: Since George was [...] and lab results. Rebeca Gutierrez MSN, RN, SOCIAL SERVICE ASSISTANT-BC, CCTN Certified Nurse Practitioner Comprehensive Transplant Center [facility] [address] [facility] [address] documented in this encounterOSU [facility]07-14-2023 Instructions* Patient Instructions* JEANNA Hess - 06/12/2023 3:00 PM EDT No change in immunosuppression. documented in this encounterOSU [facility]07-12-2023 History of Present illness Narrative* Anne Choudhury - 06/10/2023 3:16 PM EDT [facility] RX OUTREACH ADVANCED: Call Information: Method of Contact: By Phone Contact Type: Prescriptions Contactor: [facility] OP Contactee: Patient Contact Outcome: Left message Shipping/Pickup: Medication Name: Mycophenolate sod 180 mg Contact Info: Specialty ([place]) [phone] [facility] [place] [phone] [facility] [phone] [facility] [phone] Bedside Delivery ([facility]) [phone] * Negra Burks - 06/10/2023 3:16 PM EDT [facility] RX OUTREACH ADVANCED: Call Information: Date and Time of Contact: 06/12/2023 9:43 AM Method of Contact: By Phone Contact Type: Prescriptions Contactor: [facility] OP Contactee: Patient Contact Outcome: Left message and Follow-up Shipping/Pickup: Medicare B Refill?: No Medication Name: Myco 180 Contact Info: Specialty ([place]) [phone] [facility] [place] [phone] [facility] [phone] [place] [phone] Bedside Delivery ([facility]) [phone] * Mikaela Pierre - 06/10/2023 3:16 PM EDT [facility] RX OUTREACH ADVANCED: Call Information: Date and Time of Contact: 06/12/2023 10:08 AM Method of Contact: By Phone Contact Type: Prescriptions Contactor: [facility] OP Contactee: Patient Shipping/Pickup: Medicare B Refill?: No Medication Name: Mycophenolate 180mg DR Delivery Method: Air Delivery Location: Home Signature Required: No Mailing/Pickup Date: 06/17/2023 Shipping Address: [address] [place] [address] Contact Info: Specialty ([place]) [phone] [facility] [place] [phone] [facility] [phone] [place] [phone] Bedside Delivery ([facility]) [phone] documented in this encounterMercy Health [facility]. [facility]04-13-2023 History of Present illness Narrative* Anne [...] Required: No Mailing/Pickup Date: 03/16/2023 Shipping Address: [address] [place], [place] [id number] Contact Info: Specialty ([place]) [phone] [facility] [place] [phone] [facility] [phone] [place] [phone] Bedside Delivery ([facility]) [phone] * Andressa Gutiérrez - 03/12/2023 10:34 AM [...] Required: No Mailing/Pickup Date: 03/19/2023 Shipping Address: [address] [place] [address] [address] Contact Info: Specialty ([place]) [phone] [facility] [place] [phone] [facility] [phone] [place] [phone] Bedside Delivery ([facility]) [phone] documented in [address] encounterMer[facility]. [facility]04-11-2023 History of Present illness Narrative* Vladislav Mcnally - 03/10/2023 11:58 AM EDT [facility] OUTREACH ADVANCED: Call Information: Date and Time of Contact: 03/10/2023 12:00 PM Method of Contact: By Phone Contact Type: Prescriptions Contactor: [facility] OP Contactee: Patient Contact Outcome: Left message and Call back later Shipping/Pickup: Medication Name: Mycophenolate ; Tacrolimus Contact Info: Specialty ([place]) [phone] [facility] [place] [phone] [facility] [phone] [place] [phone] Bedside Delivery ([facility]) [phone] documented in this encounterOSU [facility]04-11-2023 History of Present illness Narrative* Vladislav Mcnally - 03/10/2023 11:58 AM EDT [facility] RX OUTREACH ADVANCED: Call Information: Date and Time of Contact: 03/10/2023 12:00 PM Method of Contact: By Phone Contact Type: Prescriptions Contactor: [facility] OP Contactee: Patient Contact Outcome: Left message and Call back later Shipping/Pickup: Medication Name: Mycophenolate ; Tacrolimus Contact Info: Specialty ([place]) [phone] [facility] [place] [phone] [facility] [phone] [place] [phone] Bedside Delivery ([facility]) [phone] * Anne Choudhury - 03/10/2023 11:58 AM EDT [facility] RX OUTREACH ADVANCED: Call Information: Date and Time of Contact: 03/12/2023 10:32 AM Method of Contact: By Phone Contact Type: Prescriptions Contactor: [facility] OP Contactee: Patient Contact Outcome: Left message Shipping/Pickup: Medication Name: Mycophenolate sodium (MYFORTIC) 180 MG Tab tacrolimus 0.5 mg Contact Info: Specialty ([place]) [phone] Jakob [phone] [facility] [phone] Ra[place]em [phone] Bedside Delivery ([facility]) [phone] documented in this encounterU [facility]02-17-2023 History of Present illness Narrative* Daisha Max DO - 01/16/2023 9:40 AM EST -Referring Provider for today's consult: Daisha Max DO -Primary Care Provider: Zuyl Bruno History of Present Illness George Styles [...] 05/17/2022 Surgeon: Enzo Heart DO; Location: [facility] INTERVENTIONAL RADIOLOGY (VIR) LIVER TRANSPLANT, ORTHOTOPIC N/A 04/12/2020 Laterality: N/A; Surgeon: LU Palma; Location: [facility] SAME DAY SURGERY MAIN OR KIDNEY TRANSPLANT W/O KNIK NEPHRECTOMY N/A 04/12/2020 Laterality: N/A; Surgeon: LU Palma; Location: [facility] SAME DAY SURGERY MAIN OR OTHER [...] 0.3 12/29/2022 Explant Pathology Pathologic Diagnosis A. [place] liver, orthotopic liver transplant resection (1458 gram): [...] A/P with IV contrast (06/27/2022): 1. Both [place] kidneys are atrophic with improvement in right-sided [...] frequent nighttime urination, etc). Daisha Max DO [facility] Gastroenterology, Hepatology and Nutrition [facility] Pager: [phone] * José Miguel Garnica RN - 01/16/2023 9:40 AM EST Images from the original note were not included. 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 Employment Consultant: Anayeli Burt Date of Liver Transplant: 04/13/2020 (Kidney), 04/13/2020 (Liver) 2 years, 8 months post Liver/KidneyTransplant Primary Disease: Hypertensive Nephrosclerosis Transplant U.S. Representative: Steve Munoz Primary Care physician: Zuly Bruno [...] levels: No results found for: CYCLOSPORIN, CYCLOSPORIN2, [id number], CYCLORAND No components found for: CYCLOSPORINE, 2HR [...] hours. ADDITIONAL INFORMATION: None Specified [id number] [place] [address] - [address] [address] [facility] [phone] [facility] [address] [place] [id number] [id number] [place] [address] - [address] [facility] [address] [facility] [address] [facility] [address], [place] [address] [facility] [address] ROS and SCREEN: Chest Pain: negative Cough: negative SOB: negative Abd Pain: negative Nausea: negative Vomiting: negative Diarrhea: negative Constipation: negative Dysuria: negative Edema: negative Tremors: negative Headaches: negative Wound issues: negative Alcohol consumption: no Cigarette smoking, smokeless tobacco or vaping/e-cigarette use: no Marijuana (any form), CBD oil or street drug use: no QUESTIONS OR CONCERNS TO ADDRESS WITH PHYSICIAN: documented in this encounterMer[facility]02[facility]17-2023 Instructions* Patient Instructions* José Miguel Garnica RN - 01/16/2023 9:40 AM EST - Labs Every 2 months - Discuss night time urination with your PCP - Schedule Colonoscopy through PCP - Follow up in 1 year documented in this [facility]10-12-2022 History of Present illness Narrative* Ryan Yepez [...] and no hydronephrosis. Some reflux up the pit river right ureter but good drainage of both transplant and pit river ureter to the bladder. Nephrostomy tube was [...] transplant, orthotopic (N/A, 04/12/2020); kidney transplant w/o pit river nephrecto my (N/A, 04/12/2020); and placement nephrostomy [...] Negative for , diarrhea, constipation Genitourinary: See SUN'AQ Neurological: Negative for headaches. Lymph/Heme: Negative for [...] x 4, Normal strength. No edema. Skin: [place], warm, and dry. There are no [...] and no hydronephrosis. Some reflux up the pit river right ureter but good drainage of both transplant and pit river ureter to the bladder. Nephrostomy tube was [...] Ryan Yepez MD 09/10/22 documented in [address]Mer[facility]08-08-2022 History of Present illness Narrative* Tati [...] assisted off the table and escorted to clerical receptionist where they made a follow up. [...] to have transplant ureter with anastomosis to pit river right ureter. Nephrostogram without filling defects and no hydronephrosis. Some reflux up the pit river right ureter but good drainage of both transplant and pit river ureter to the bladder. Nephrostomy tube was removed without issue. Patient does have some sensation of incomplete bladder emptying and occasional sensation in his right flank. PVR today was 33cc. Will re-evaluate urinary symptoms at next appointment. --continue Flomax --RTC in one month flow flow/PVR/IPSS Patient to call with any additional questions or concerns. Ryan Yepez MD 07/07/22 documented in this encounter[facility]29[facility] History of Present illness Narrative* Ryan Yepez [...] transplant, orthotopic (N/A, 04/12/2020); kidney transplant w/o pit river nephrecto my (N/A, 04/12/2020); and placement nephrostomy [...] Negative for , diarrhea, constipation Genitourinary: See SUN'AQ Neurological: Negative for headaches. Lymph/Heme: Negative for [...] x 4, Normal strength. No edema. Skin: [place], warm, and dry. There are no [...] bag if needed. documented in this encounterOSU [facility]07-29-2022 History and physical note* JEANNA Padilla - 06/27/2022 10:40 AM EDT Patient was evaluated in clinic as a nurse visit. Please refer to Rena Brewster's note. [facility] Work Phone: [phone] 528-513407-29-2022 History and physical note* JEANNA Padilla - 06/27/2022 10:40 AM EDT Patient was evaluated in clinic as a nurse visit. Please refer to Rena Brewster's note. documented in this encounterOSU [facility]07-29-2022 History of Present illness Narrative* Rena Brewster RN - 06/27/2022 10:40 AM EDT TEACHING REGARDING TX NEPH COMPLETED-NEPH TUBE SITE DRY AND INTACT-CLEAR YELLOW URINE IN THE BAG-INSTRUCTED ABOUT FLUSHING, BAG CHANGING ETC. NUMEROUS QUESTIONS ASKED AND ANSWERED-VERBALIZED UNDERSTANDING documented in this encounterOSU [facility]07-20-2022 NoteEXAMINATION: CT ABD/PELVIS WO CON HISTORY: UNSPECIFIED [...] mass or enlargement. KIDNEYS: Marked atrophy of pit river kidneys. Transplant right pelvic kidney with percutaneous [...] Electronically authenticated by: MÓNICA JIMENEZ Date: 2022-06-18 13:53[facility]07-14-2022 Instructions* Patient Instructions* Anayeli Christianson RN - 06/12/2022 3:21 PM EDT Do not take apart/disrupt nephrostomy tube system. Call Interventional Radiology and/or on-call transplant nurse [phone] for instruction if need to flush (clot or decreased flow). Take cipro 500mg, one tablet, twice per day for 14 days documented in this encounterMercy Health [facility]. [facility]07-14-2022 History of Present illness Narrative* Roxanne Grimes RN - 06/12/2022 2:15 PM EDT Images from the original note were not included. 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 Employment Consultant: Anayeli Burt Date of Liver Transplant: 04/13/2020 (Kidney), 04/13/2020 (Liver) 2 year, 1 months post Liver/Kidney Transplant Primary Disease: Hypertensive Nephrosclerosis Transplant [place] Representative: Steve Munoz Primary Care physician: Zuly Bruno [...] transport for appointment: no Did front office assistant confirm current address and insurance information [...] LAB AND PHARMACY: None Specified [facility] [place] [address] - [address] [facility] [address] [facility] [address] [facility] [address] , [address] [facility] [address] [facility][id number] - [place] [address] [address] [facility] [address] [facility] [address] [facility] [address], [place] [address] [facility] [address] ROS and SCREEN: Chest Pain: negative Cough: [...] EDT I saw George Styles at the [facility] on 06/12/2022. Patient is a 52 y.o. 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 Steve Munoz MD intake manager Division [facility] documented in this encounterMercy Health St. [facility]07-06-2022 Instructions* Patient Instructions* TATI GROVE - 06/04/2022 11:04 AM EDT Thank you for joining us for your neph tube follow up. We recommend routine exchange every 8-10 weeks. Please reach out at [phone] when it is time to set your next routine exchange. Thank you IR clinic documented in this encounterMercy Health St. [facility]07-06-2022 History of Present illness Narrative* Litzy [...] to schedule exchange.Verbalized understanding. documented in this encounterOSU [facility]06-21-2022 Note* Nursing Notes - Leon Cook RN [...] time of his discharge. Leon Cook RN [facility] Miscellaneous Notes* Nursing Notes - Leon Cook [...] Cook RN - 05/20/2022 2:01 PM EDT Anne Dillard MD R10 Rm [phone] Please let's have a clear order on how the nephrostomy site dressing need to be changed when the patient goes home so we provide teaching before his discharge Leon RN #[id number] Leon Cook RN * Plan of Care [...] - 05/19/2022 12:44 PM EDT Discussed with [facility] re: possible urine culture performed at [...] Dr Justyn Wen, regarding pt BP 174/77. * Plan [...] at this time. MD notified and aware. * Nursing Notes - [...] with questions. Evan Byrd MD Urology, PGY-2 #[id number] * Certification - Nishant Gamez MD - [...] 05/16/2022 2:29 AM EDT On admission to R10, a dual RN initial assessment of skin condition was performed by Kallie Lorenzana RN and Sheri Arguelles RN. Skin Assessment: WDL Jose Score: 20 LDA Added:Tess Lorenzana RN documented in this encounterU [facility]06-21-2022 Note* Plan of Care - Leno Cook RN - 05/20/2022 7:03 PM EDT [...] care. Outcome: Adequate for Discharge [facility]06-21-2022 Note* Nursing Notes - Leon Cook RN - 05/20/2022 2:01 PM EDT Paged Vera Dillard MD R10 Rm [phone] Please let's have a clear order on how the nephrostomy site dressing need to be changed when the patient goes home so we provide teaching before his discharge Leon RN #[id number] Leon Cook RN [facility]06-21-2022 History of Present illness Narrative* Yanira [...] cost is $0. Yanira Her RPh,PharmD Specialty ([place]) [phone] [facility] [place] [phone] [facility] [phone] Raheem [phone] [place] [phone] Bedside Delivery ([facility]) [phone] * Maxi Pringle MD - 05/19/2022 12:32 PM EDT Attending I saw George Styles at the [facility] on 05/19/2022. I saw and independently [...] 804 iodixanol (VISIPAQUE) injection 320 mg/mL for IR [...] Daily Evan Bennett MD 0.4 mg at 805 Lab Results Component Value Date SODIUM 141 [...] Daily Progress Note Patient: George Styles, 1970, [id number] Physician: Liam Julian MD, PGY-3, Pager #[phone], [email or web address] Subjective/Interval History: No acute events overnight. Passed [...] test if transplantnephrology still thinks appropriate. Daya (Nunu) Jeff Saldana MD Division of Hospital Medicine Pager [phone] * Maxi Pringle MD - 05/18/2022 7:39 AM EDT Attending I saw George Styles at the [facility] on 05/18/2022. I saw and independently [...] at iodixanol (VISIPAQUE) injection 320 mg/mL for IR [...] Daily Nishant Gamez MD 8.6 mg at 05/17/2247 sodium chloride 0.9% IV solution 250 mL 250 mL Intravenous PRN Evan Bennett MD [Held by provider] tacrolimus (PROGRAF) capsule 1 mg 1 mg Oral Q12H Evan Bennett MD Tamsulosin HCl (FLOMAX) capsule 0.4 mg 0.4 mg Oral Daily Evan Bennett MD 0.4 mg at Lab Results Component Value Date SODIUM 139 [...] future stones Can remove polly Pringle MD * Nishant Gamez MD - 05/18/2022 7:37 AM EDT Internal Medicine Daily Progress Note Patient: George Styles, 1970, [id number] Physician: Nishant Gamez MD, PGY2, Pager #[phone], [email or web address] Subjective/Interval History: Nephrostomy tube placed yesterday with [...] 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 Daya (Nunu) Jeff Saldana MD Division of Hospital Medicine Pager [phone] * Nishant Gamez MD - 05/17/2022 8:04 AM EDT Internal Medicine Daily Progress Note Patient: George Styles, 1970, [id number] Physician: Nishant Gamez MD, PGY2, Pager #[phone], [email or web address] Subjective/Interval History: Worsening creatinine this morning with [...] Nishant Gamez MD Associated attestation - Daya Saldaan MD - 05/17/2022 1:37 PM EDT Attending [...] Saldana MD Division of Hospital Medicine Pager [phone] * Maxi Pringle MD - 05/17/2022 7:07 AM EDT Attending I saw George Styles at the [facility] on 05/17/2022. I saw and independently [...] review of chart and discussion withtreatment team, Sales Utility Representative has not identified needs at this time. [...] EDT Introduced self and role of the electric knife operator to patient. Provided emotional and spiritual support and the patient responded by sharing their experience and discussed the following: - Spirituality/Islam Affiliation: As a kid attended Jew mosque but not a strong identity now - Family support - pt's brothers live close by Darkroom Technician provided: - Supportive presence - Active listening - Validation of feelings/emotions Patient encouraged to request a electric knife operator as needed. Chaplains are available in-house 24 hours a day and 7 days a week. For urgent matters in [facility], please page [phone]. If the request is not urgent, please enter a consult. Consults are responded to within 24 hours. Angie Singh Mdiv, [facility] Transplant [place] [address] Darkroom Technician [facility] Darkroom Technician [place] [phone] [email or web address] 22/06 [facility] Pager [phone] 22/06 Pager ,[facility], and [place] 1500 22/06 Raheem [...] of life story;Identifying support system Explored Expectations Instructional Writer Education Instructional Writer Service Available Yes Educated Patient Outcomes Patient Outcomes Articulated purpose/meaning Plan of Care Continue Visiting PRN * Nishant Gamez MD - 05/16/2022 8:27 AM EDT Internal Medicine Daily Progress Note Patient: George Styles, 1970, [id number] Physician: Nishant Gamez MD, PGY2, Pager #[phone], [email or web address] Subjective/Interval History: Overall feeling okay this morning. [...] UTI while waiting on urinary cx. 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 [...] Supervision Transfer Assessment: Sit to Stand Transfer [place] Level: Sit->Stand: independent Skilled Intervention/Details: Sit->Stand: x1 from EOB Stand to Sit Transfer [place] Level: Stand->Sit: supervision Assistive Device: Stand->Sit: armed chair Skilled Rationale: Controlled descent for sitting, Verbal cues Gait/Functional Mobility: Gait Assessment [place] Level: Gait: supervision Assistive Device: Gait: gait belt Gait Distance (feet): 200 Gait Deviations Identified: decreased grace, decreased step length, decreased stride length Gait Skilled Rationale: verbal, upright posture Skilled Intervention/Details - Gait: Pt with steady gait without LOB or complaints of SOB. Stairs: Stairs Assessment [place] Level: Stair Negotiation: stand-by assist Assistive Device: Stair Negotiation: gait belt, left rail (ascending) Number of stairs: 9 Stairs Skilled Rationale: reciprocal pattern Outcome Score(s): [facility] Basic Mobility Inpatient Short Form Turning over in bed: 4 - No Assistance Sitting/standing from chair: 4 - No Assistance Moving from lying on back to sittin - No Assistance Moving to and from bed to chair: 4 - No Assistance Walk in hospital room: 3 - A Little Assistance Climbing 3-5 steps with a railin - A Little Assistance [facility] Mobility Raw Score: 22 [facility] Mobility Functional Limitation/Modifier: 20.91% Currently Impaired [...] reported no concerns with discharging home with tekamah support. 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 IADL History IADLs: independent Primary Language: Senegalese Home Management Skills: independent Meal Prep Responsibility: [...] Assessment: Transfer Assessment: Sit to Stand Transfer [place] Level: Sit->Stand: independent Skilled Rationale: Cues for increased safety Skilled Intervention/Details: Sit->Stand: x1 EOB Stand to Sit Transfer [place] Level: Stand->Sit: supervision Assistive Device: Stand->Sit: gait belt, armed chair Skilled Rationale: Verbal cues, Controlled descent for sitting, Cues for increased safety Skilled Intervention/Details: Stand->Sit: cues for hand placement and controlled descent Functional Mobility: Functional Mobility [place] Level: Functional Mobility/Gait: stand-by assist Assistive Device: Functional Mobility/Gait: gait belt Functional Mobility Distance: Distance needed for limited community mobility Functional Mobility Deficits: Activity tolerance, Balance, Decreased step length, Generalized weakness Functional Mobility Skilled Rationale: Verbal cues, Facilitate postural control Skilled Intervention/Details - Functional Mobility/Gait: cues for upright posture Outcome Score(s): [facility] Daily Activity Inpatient Short Form Putting on/Taking Off Lower Body Clothin - A Little Assistance Bathin - A Little Assistance Toiletin - A Little Assistance Putting on/Taking Off Upper Body Clothin - No Assistance Groomin - No Assistance Eatin - No Assistance [facility] Activity Raw Score: 21 [facility] Activity Functional Limitation/Modifier: 32.79% Currently Impaired [...] DAY SURGERY MAIN OR KIDNEY TRANSPLANT W/O KNIK NEPHRECTOMY N/A 04/12/2020 Laterality: N/A; Surgeon: LU [...] by: Mel Norman OT, OTR/L License #: [id number] pager # [phone] 05/20/2022 Upon discontinuation of Acute Care Occupational Therapy Services or patient discharge from the hospital this note represents the current Occupational Therapy Discharge Summary. documented in this [facility]06-21-2022 Hospital course Narrative* Nishant Gamez MD - 05/20/2022 11:45 AM EDT Discharge Summary Name: George Styles Age: 52 y.o. Birthday: 1970 Admit Date: 05/15/2022 3:51 PM Discharge Date: 05/20/22 Discharge Time: 11:52 AM Discharge Unit: Gen Med 4 Admission Information Admitting Physician: Daya Saldana MD Discharge Information Discharge Physician: Daya aSldana MD Problem List Active Hospital Problems Diagnosis [...] Saldana MD Division of Hospital Medicine p: [phone] f: [phone] CONSULTS DURING ADMISSION: IP CONSULT TO SURGERY - UROLOGY IP CONSULT TO NEPHROLOGY - TRANSPLANT (MEDICINE) IP CONSULT TO INTERVENTIONAL RADIOLOGY IP CONSULT TO PHYSICAL THERAPY IP CONSULT TO OCCUPATIONAL THERAPY IP CONSULT TO PHARMACY BEDSIDE DISCHARGE MED DELIVERY IMAGING / PROCEDURES / RESULTS: Should you require further information or copies of results or reports please contact [employer] Information [employer] @ [phone] LABS AT TIME OF DISCHARGE: Lab Results [...] HOME AT DISCHARGE: Zuly Bruno [address] [facility] / [place] [address] MEDICATIONS: Discharge Orders CT ABDOMEN/PELVIS WITHOUT CONTRAST [...] CAPS Generic drug: docusate Follow-up: Zuly Bruno, TRAILHEAD MAINTENANCE WORKER [address] [facility] [address] Schedule an appointment as soon as possible for a visit Follow-up appointment with your, primary care physician within 7-10 days, after discharge. [address] [facility] [address] Follow up The department of urology will call you with a follow up appointment. LU Ovalle [address] [facility] [address] Follow up Please make a follow up appointment with Dr. Munoz's office. Upcoming Appointments (up to five)-Some appointments for Medical Center outpatient clinics or diagnostic testing locations are not displayed below Provider Department Dept Phone 06/04/2022 10:40 AM IR CLINIC [facility] Interventional Radiology Clinic [phone] 06/27/2022 1:30 PM [facility] Department of Radiology Arrive at: Arrive to First Floor Registration Desk [phone] 06/27/2022 2:40 PM Ryan Montes [facility] Arrive at: Arrive to 2nd Floor, Registration [address] 10/31/2022 1:00 PM Steve Munoz [facility] [phone] 01/16/2023 9:40 AM TRANSPLANT HEPATOLOGY 3, [facility] Transplant [facility] [phone] Associated attestation - Daya Saldana MD - [...] MD (Peggy) Division of Hospital Medicine Pager [phone] documented in this encounterOSU [facility]06-21-2022 Hospital Discharge instructions* Discharge Instr - Wound [...] be changed by Interventional Radiology. Please call [phone] to schedule this appointment and with any questions or concerns you may have regarding the nephrostomy tube. If you have questions or concerns, please call Interventional Radiology at SOMEONE FROM INTERVENTIONAL RADIOLOGY WILL CALL YOU FOR A FOLLOW UP IN THE IR CLINIC Giulia Cavazos RN Nurse Coordinator Interventional Radiology Interventional Radiology Outpatient scheduling documented in this encounterMer[facility]06-20-2022 Note* Plan of Care - Josey [...] Ongoing Goal: Interdisciplinary Rounds/Family Conf Outcome: Ongoing [facility]06-20-2022 Note* Plan of Care - Liam Julian MD - 05/19/2022 12:44 PM EDT Discussed with [facility] re: possible urine culture performed at their facility. However, based on urinalysis completed at that time, which was only notable for hematuria, culture was not performed and sample no longer feasible for culture. Liam Julian MD Internal Medicine/Pediatrics, PGY-[address] [facility]06-19-2022 Note* Nursing Notes - Carolyn Isaac RN - 05/18/2022 8:03 PM EDT 2002: IHIS message sent to Dr Justyn Wen, regarding patient passing a small kidney stone, about the size of pea. notified. Stone left in strainer in pt bathroom. 499: IHIS message sent to Dr Justyn Wen, regarding pt BP 174/77. [facility]06-19-2022 Note* Plan of Care - Mel [...] discharge/transition of care. Outcome: Ongoing [facility]06-19-2022 Note* Plan of Care - Елена [...] NS should instead be used. [facility] Work Phone: [phone]) 377-702206-19-2022 Note* Nursing Notes - Carolyn Isaac RN - 05/18/2022 4:37 AM EDT IHIS chat sent to Dr Tray Quintana, regarding pt BP 190/86. Pt complaining of pain at site of neph tube. PRN pain medication given per order parameters. Pt denies any other symptoms at this time. notified and aware. [facility]06-18-2022 Note* Nursing Notes - Danitza Thompson RN - 05/17/2022 12:28 PM EDT At 0900, I rounded with Dr. Gamez and Dr. Saldana. At that time I checked Mr. Styles's vital signs. His pulse oximeter was low and he was tachypneic. Verbal order at bedside to put nasal cannula on starting at 2liters oxygen and to provide incentive spirometer. [facility]06-18-2022 Note* Nursing Notes - Meka Rincon RN - 05/17/2022 10:52 AM EDT Interventional Radiology procedure completed with IR Attending Dr. Heart / Dr. Le of percutaneous right nephrostomy tube placement transplant kidney 10.2 Fr Griffin acosta Pt tolerated procedure with moderate sedation local numbing agent . Transported to inpatient after phase I recovery. Post procedure orders in place. [facility]06-17-2022 Note* Nursing Notes - Danitza Thompson RN - 05/16/2022 4:57 PM EDT At 1530, I text chavad Kaitlynn Gomez MD that patient has only had 25ml urine output in matias this afternoon. [facility]06-17-[facility] Note* Plan of Care - Evan [...] with questions. Evan Byrd MD Urology, PGY-2 #[address] [facility] Work Phone: [phone] Note* Certification - Nishant Gamez MD - 05/16/2022 11:20 AM EDT I certify that this patient requires inpatient services at this time. I anticipate the expected length of stay will include at least two midnights. Inpatient services are due to the following medicalconcerns Obstructive kidney stone. Plans for post hospitalization care will be discharge to home. [facility] Consult note* Maria De Jesus Pollock MD, PhD - 05/16/2022 9:37 AM EDTAssociated Order(s): IP CONSULT TO NEPHROLOGY - TRANSPLANT (MEDICINE) I saw George Styles at the [facility] on 05/16/2022. Reason for Consultation: kidney [...] where he was given flomax and senthome. Senath better but noticed more pain and decreased [...] and recommendations. Maxi Pringle MD [facility] [facility] Work Phone: 1(532) 646-382206-17-2022 Consult note* Maria De Jesus Pollock MD, PhD - 05/16/2022 9:37 AM EDTAssociated Order(s): IP CONSULT TO NEPHROLOGY - TRANSPLANT (MEDICINE) I saw George Styles at the [facility] on 05/16/2022. Reason for Consultation: kidney [...] where he was given flomax and senthome. Senath better but noticed more pain and decreased [...] states he went to his local ED [place] and he was put on Flomax and he did improve. Pt states last night he was unable to void with severe right sided abd pain. Pt states nausea and no vomiting or fevers. Pt states he went back to [place] ED at 0100 and they placed a [...] orthotopic (N/A, 04/12/2020); and kidney transplant w/o pit river nephr ectomy (N/A, 04/12/2020). 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 The pit river kidneys are progressively atrophic bilaterally compared to [...] of 06/14/2020 are no longer present. The pit river distal right ureter is decompressed beyond this [...] with surgical history for renal graft and pit river right urinary drainage, as a discrete ureteroneocystostomy is not identified, and the graft may be draining via a ureteroureterostomy. Urology consultation recommended. 3. The pit river kidneys are bilaterally atrophic, with right renal sinus calcifications consistent with nonobstructing right pit river renal calculi up to 6 mm. Normal [...] PGY-3, Department of Urologic Surgery Pager #: [phone] Associated attestation - Ryan Yepez MD - [...] --may continue flomax [facility]* Plan of Care - Kallie Lorenzana [...] Relationship/Rapport: care explained choices provided [facility]06-17-2022 Note* Nursing Notes - Kallie Lorenzana RN - 05/16/2022 2:29 AM EDT On admission to [facility], a dual RN initial assessment of skin condition was performed by Kallie Lorenzana RN and Sheri Arguelles RN. Skin Assessment: WDL Jose Score: 20 LDA Added:N Kallie Lorenzana RN [facility]06-16-2022 Emergency department Note* Karlie Bean RN - 05/15/2022 11:14 PM EDT Report given to Kallie RN at [facility]06-16-2022 Emergency department Note* Karlie Bean RN - 05/15/2022 11:14 PM EDT Report given to Kallie RN at 10 * Nisha Gardiner RN - 05/15/2022 7:02 [...] diagnosed Thursday and was sent home with [facility]. He went back to that ED and [...] DAY SURGERY MAIN OR KIDNEY TRANSPLANT W/O KNIK NEPHRECTOMY N/A 04/12/2020 Laterality: N/A; Surgeon: LU [...] 05/15/2022 2:15 PM EDT Pt arrives from [facility] with kidney stones. Pt states he had right lower abd pain and right flank pain with blood in his urine since Thursday. Pt states he went to his local ED [place] andhe was put on Flomax and he did improve. Pt states last night he was unable to void with severe right sided abd pain. Pt states nausea and no vomiting or fevers. Pt states he went back to [place] EDat 0100 and they placed a matias and CT scan completed and multiple kidney stones noted. [facility]2020. [facility] History and physical note* Evan Bennett MD - 05/15/2022 9:18 PM EDT Internal Medicine Admission History & Physical Patient: George Styles, 1970, [id number] Physician: Evan Bennett MD, PGY1, Pager #[phone], GM 4 service Date of face to [...] Laterality: N/A; Surgeon: LU Palma; Location: [facility] SAME DAY SURGERY MAIN OR KIDNEY TRANSPLANT W/O KNIK NEPHRECTOMY N/A 04/12/2020 Laterality: N/A; Surgeon: LU Palma; Location: [facility] SAME DAY SURGERY MAIN OR OTHER [...] erythema: Skin: No jaundice or rash Neuro: alum plant operator 3-7, 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 Strength [...] dilation of the calyces may represent narrowing/partial [id number] ofthe ureter and mild hydronephrosis or sequela [...] MD Division of Hospital Medicine [phone] [facility] Work Phone: 1(713) 964-599706-16-2022 History and physical note* Evan Bennett MD - 05/15/2022 9:18 PM EDT Internal Medicine Admission History & Physical Patient: George Styles, 1970, [id number] Physician: Evan Bennett MD, PGY1, Pager #[phone], GM 4 service Date of face to [...] DAY SURGERY MAIN OR KIDNEY TRANSPLANT W/O KNIK NEPHRECTOMY N/A 04/12/2020 Laterality: N/A; Surgeon: LU [...] 05/15/22 1814 BP: 147/59 Pulse: 73 Resp: Temp: 98.4 F (36.9 C) O2 Device: room air (05/15/221946) Gen: Alert, Awake, NAD Eyes: PERRLA, EOMI, no icterus ENT: MMM, trachea midline Resp: CTA & P, normal respiratory effort Cardio: II/ systolic murmur radiating to carotids GI: Mild abdominal pain not flank on current exam MSK: No joint effusions or erythema: Skin: No jaundice or rash Neuro: alum plant operator 3-7, 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 Strength [...] dilation of the calyces may represent narrowing/partial [id number] ofthe ureter and mild hydronephrosis or sequela [...] Hospital Medicine [id number] documented in [facility] encounter[facility] Emergency department Note* Nisha Gardiner RN - 05/15/2022 7:02 PM EDT Bladder scan with Dr Villatoro at bedside, 14ml noted [facility] Consult note* Stephanie Tomas MD - 05/15/2022 [...] states he went to his local ED [place] and he was put on Flomax and he did improve. Pt states last night he was unable to void with severe right sided abd pain. Pt states nausea and no vomiting or fevers. Pt states he went back to [place] ED at 0100 and they placed a [...] orthotopic (N/A, 04/12/2020); and kidney transplant w/o pit river nephr ectomy (N/A, 04/12/2020). 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 The pit river kidneys are progressively atrophic bilaterally compared to [...] of 06/14/2020 are no longer present. The pit river distal right ureter is decompressed beyond this [...] with surgical history for renal graft and pit river right urinary drainage, as a discrete ureteroneocystostomy is not identified, and the graft may be draining via a ureteroureterostomy. Urology consultation recommended. 3. The pit river kidneys are bilaterally atrophic, with right renal sinus calcifications consistent with nonobstructing right pit river renal calculi up to 6 mm. Normal [...] PGY-3, Department of Urologic Surgery Pager #: [phone] Associated attestation - Ryan Yepez MD - [...] before surgical intervention --may continue flomax [facility] Work Phone: [phone] Emergency department Note* Nisha Gardiner RN - 05/15/2022 6:[address] Schneider concerning no urine output via matias catheter. [facility] Physician Emergency department Note* Gian Villatoro MD [...] diagnosed Thursday and was sent home with flochauncey. He went back to that ED and [...] care. Gian Villatoro MD 05/15/222003 [facility] Work Phone: [phone]) [phone] Emergency department Note* Nisha Gardiner RN - 05/15/2022 5:[address] Schneider made aware of only 30 ml urine via matias since arrival to room. [facility]06-16-2022 Physician Emergency department Note* Matt Schneider [...] Laterality: N/A; Surgeon: LU Palma; Location: [facility] SAME DAY SURGERY MAIN OR KIDNEY TRANSPLANT W/O KNIK NEPHRECTOMY N/A 04/12/2020 Laterality: N/A; Surgeon: LU Palma; Location: [facility] SAME DAY SURGERY MAIN OR OTHER [...] incorrections. Matt Schneider MD Resident 05/15/222030 [facility] Work Phone: [phone] Emergency department Note* Lynn Rutherford RN - 05/15/2022 2:15 PM EDT Pt arrives from [facility] with kidney stones. Pt states he had right lower abd pain and right flank pain with blood in his urine since Thursday. Pt states he went to his local ED [place] andhe was put on Flomax and he did improve. Pt states last night he was unable to void with severe right sided abd pain. Pt states nausea and no vomiting or fevers. Pt states he went back to [place] EDat 0100 and they placed a matias and CT scan completed and multiple kidney stones noted. [facility] and kidney [facility]/2020. [facility]04[facility] History of Present illness Narrative* Miranda Rosales [...] Required: No Mailing/Pickup Date: 03/17/2022 Shipping Address: [address] [place] [address] Contact Info: Specialty ([place]) [phone] [facility], [place] [phone] [facility] [phone] Raheem [phone] Bedside Delivery ([facility]) [phone] documented in this encounter[facility] History of Present illness Narrative* Angel Carpio [...] 05/16/22 Goal Progress: Satisfactory Contact Info: Specialty ([place]) [phone] [facility] [place] [phone] [facility] [phone] [facility] [phone] Bedside Delivery ([facility]) [phone] * Mallika Henderson - 06/14/2021 11:57 AM EDT [facility] [...] Home Signature Required: Yes Shipping Address: [address] [place] [address] Contact Info: Specialty ([place]) [phone] Jakob [phone] [facility] [phone] Raheem [phone] Bedside Delivery ([facility]) [phone] documented in this encounterOS[facility] + Plan note Future Appointments Appointment Date:11/22/2024 09:00:00 AM Scheduled Provider:JONATHAN Almodovar APRN, [place] X Location:[facility] Appointment Type:URO Office Visit [facility] evaluation + Plan note Future Appointments Appointment Date:03/09/2025 10:20:00 AM Scheduled Provider:JONATHAN Almodovar APRN, [place] X Location:[facility] Appointment Type:URO Office Visit [facility] Evaluation note* Diagnosis FAYE (acute kidney injury)- Primary Acute kidney failure, unspecified Hydronephrosis due to obstruction of ureteral orifice Hydronephrosis due to obstruction of ureteral orifice FAYE (acute kidney injury) Acute kidney failure, unspecified documented in this encounter [facility]* Diagnosis Follow-up exam- Primary Unspecified follow-up examination documented [facility] this encounter [facility] Diagnosis Immunosuppressed status- Primary Unspecified disorder of immune mechanism Kidney replaced by transplant Liver replaced by transplant Abnormal blood chemistry Other abnormal blood chemistry High risk medication use Encounter for long-term (current) use of other medications Aftercare following organ transplant Liver transplant recipient [facility] Diagnosis Attention to nephrostomy- Primary documented in this encounter [facility]* Diagnosis Other hydronephrosis- Primary [facility] Diagnosis FAYE (acute kidney injury) Acute kidney failure, unspecified documented [facility] encounter [facility]* Diagnosis Other hydronephrosis- Primary -donor kidney transplant recipient Kidney replaced by transplant [facility]* Diagnosis Other hydronephrosis documented in this encounter 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 Diagnosis Abnormal blood chemistry- Primary Other abnormal blood chemistry Liver transplant recipient Kidney replaced by transplant Immunosuppressed status Unspecified disorder of immune mechanism Aftercare following organ transplant documented [facility] Diagnosis Kidney replaced by transplant- Primary documented [facility]* Diagnosis Immunosuppressed status- Primary Unspecified disorder of immune mechanism Kidney replaced by transplant Aftercare following organ transplant High risk medication use Encounter for long-term (current) use of other medications Other general symptoms and signs Abnormal blood chemistry Other abnormal blood chemistry Hypertension secondary to other renal disorders documented in this encounter [facility]* Diagnosis Histoplasmosis- Primary Histoplasmosis, unspecified [...] in 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) Atherosclerosis 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) Atherosclerosis of aorta Obesity (BMI 30-39.9) DARLENE (obstructive sleep apnea) Obstructive sleep apnea (adult) (pediatric) Tremor Abnormal involuntary movements Immunocompromised (CMS/HCC) Unspecified immunity deficiency Primary hypertension (CMS/HCC) Unspecified essential hypertension Shortness of breath documented in this encounter [facility]* Diagnosis Pleural effusion [...] examination documented in this encounter [facility]* Diagnosis Heart failure, diastolic, acute- Primary Acute diastolic heart failure documented [facility] this encounter [facility]* Diagnosis Liver lesion- Primary Other specified disorders of liver Liver transplant recipient High risk medication use Encounter for long-term (current) use of other medications Therapeutic drug monitoring Encounter for therapeutic drug monitoring Immunocompromised Unspecified immunity deficiency documented in this encounter [facility]* Diagnosis Kidney replaced by transplant- Primary [facility]* Diagnosis DARLENE (obstructive sleep apnea)- [...] Calculus of kidney documented in this encounter [facility]* Diagnosis Primary hypertension (CMS/HCC)- Primary [...] fracture (CMS/HCC) Kidney stones Calculus of kidney Other polyneuropathy [facility]* Diagnosis DALRENE (obstructive sleep apnea)- Primary Obstructive sleep apnea [...] fracture (CMS/HCC) Kidney stones Calculus of kidney Other osteoporosis without current pathological fracture (CMS/HCC)- Primary Liver transplant status (CMS/HCC) Organ transplant Unspecified organ or tissue replaced by transplant documented [facility] this encounter [facility] Narrative No data available for this section [facility] Discharge instructions Additional Instructions DISCHARGE INSTRUCTIONS [...] NOT operate machinery such as power tools, iCabbi mowers, Enviroowers, sewing machines, etc. for 24 hours. - [...] NOT operate machinery such as power tools, iCabbi mowers, Enviroowers, sewing machines, etc. for 24 hours. - [...] times daily if needed. - Office number [phone]. [facility] Work Phone: Progress note No data available for this section [facility] reason for referral (narrative)* Consultation (Routine) - New Request Specialty Diagnoses / Procedures Referred By Contac t Referred To Contact Interventional Radiology Diagnoses Hydronephrosis due to obstruction of ureteral orifice Daya Saldana MD [address] [place] [address] Referral ID Status Reason Start Date Expiration Date V isits Requested Visits Authorized [id number] New Request 05/18/2022 06/12/2023 1 1 * Radiology (Emergency) - New Request Specialty Diagnoses / Procedures Referred By Contac t Referred To Contact Procedures US RENAL TRANSPLANT SCAN Daya Saldana MD [address] [place] [address] Referral ID Status Reason Start Date Expiration Date V isits Requested Visits Authorized [id number] New Request 05/16/2022 06/10/2023 1 1 * Consultation (Routine) - New Request Specialty Diagnoses / Procedures Referred By Contac t Referred To Contact Urology Diagnoses FAYE (acute kidney injury) Ryan Yepez MD [address] [place] [address] [address] [place] [address] Referral ID Status Reason Start Date Expiration Date V isits Requested Visits Authorized [id number] New Request 05/16/2022 06/10/2023 1 1 * MRI/CAT Scan (Routine) - New Request Specialty Diagnoses / Procedures Referred By Contac t Referred To Contact Diagnoses FAYE (acute kidney injury) Procedures CT ABDOMEN/PELVIS WITHOUT CONTRAST CHG CT SCAN,ABDOMENT AND PELVIS,W/O CONTRAST Ryan Yepez MD [address] [place] [address] [address] [place] [address] Referral ID Status Reason Start Date Expiration Date V isits Requested Visits Authorized [id number] New Request 05/16/2022 06/10/2023 1 1 * (Routine) - Pending Review Specialty Diagnoses / Procedures Referred By Contac t Referred To Contact Procedures PLATELET MONITORING PER PROTOCOL Daya Saldana MD [address] [place] [address] Referral ID Status Reason Start Date Expiration Date V isits Requested Visits Authorized [id number] Pending Review 05/15/2022 06/09/2023 1 1 * (Routine) - Pending Review Specialty Diagnoses / Procedures Referred By Contac t Referred To Contact Procedures DVT/VTE RISK ASSESSMENT Daya Saldana MD [address] [place] [phone] Referral ID Status Reason Start Date Expiration Date V isits Requested Visits Authorized [id number] Pending Review 05/15/2022 06/09/2023 1 1 * (Routine) Specialty Diagnoses / Procedures Referred By Contac t Referred To Contact Evan Bennett MD [address] [place] [address] Referral ID Status Reason Start Date Expiration Date Visits Re quested Visits Authorized * (Routine) Specialty Diagnoses / Procedures Referred By Contac t Referred To Contact Evan Bennett MD [address] [place] [phone] Referral ID Status Reason Start Date Expiration Date Visits Re quested Visits Authorized [facility] for referral (narrative)* Consultation (Routine) - New Request Specialty Diagnoses / Procedures Referred By Contac t Referred To Contact Sleep Medicine Diagnoses Hypoxia Reese Sage MD [address] [place] [address] Referral ID Status Reason Start Date Expiration Date V isits Requested Visits Authorized [id number] New Request 09/10/2023 10/04/2024 1 1 * MRI/CAT Scan (Routine) - New Request Specialty Diagnoses / Procedures Referred By Contac t Referred To Contact Diagnoses Histoplasmosis Procedures CT CHEST WITHOUT CONTRAST CHG DIAGNOSTIC COMPUTED TOMOGRAPHY THORAX W/O CNTRST Reese Sage MD [address] [place] [address] Referral ID Status Reason Start Date Expiration Date V isits Requested Visits Authorized [id number] New Request 09/10/2023 10/04/2024 1 1 * Radiology (Routine) - New Request Specialty Diagnoses / Procedures Referred By Contac t Referred To Contact Procedures US RENAL TRANSPLANT SCAN Steve Munoz MBBS [address] [place] [address] Referral ID Status Reason Start Date Expiration Date V isits Requested Visits Authorized [id number] New Request 08/29/2023 09/22/2024 1 1 * (Routine) - New Request Specialty Diagnoses / Procedures Referred By Contac t Referred To Contact Procedures PLATELET MONITORING PER PROTOCOL Steve Munoz MBBS [address] [place] [address] Referral ID Status Reason Start Date Expiration Date V isits Requested Visits Authorized [id number] New Request 08/28/2023 09/21/2024 1 1 * (Routine) - New Request Specialty Diagnoses / Procedures Referred By Contac t Referred To Contact Procedures DVT/VTE RISK ASSESSMENT Steve Munoz MBBS [address] [place] [address] Referral ID Status Reason Start Date Expiration Date V isits Requested Visits Authorized [id number] New Request 08/28/2023 09/21/2024 1 1 [facility] for referral (narrative)* Consultation (Routine) - Pending Review Specialty Diagnoses / Procedures Referred By Contac t Referred To Contact Urology Diagnoses Decreased urine stream Procedures [place] OFFICE/OUTPATIENT NEW HIGH MDM 60 MINUTES Zuly Bruno NP [address] [place] [address] Trace Gannon MD [address] [facility] [place] [address] Referral ID Status Reason Start Date Expiration Date Visits Requested Visits Authorized [id number] Pending Review Specialty Services Required 08/23/2024 02/19/2025 1 1 * Consultation (Routine) - Pending Review Specialty Diagnoses / Procedures Referred By Contac t Referred To Contact Gastroenterology Diagnoses Gastroesophageal reflux disease, unspecified whether esophagitis present Abdominal pain, generalized Other constipation Procedures MN OFFICE/OUTPATIENT NEW HIGH MDM 60 MINUTES Zuly Bruno NP [address] [place] [address] Alaina Mclaughlin DO [address] [place] [address] [address] [place] [address] Referral ID Status Reason Start Date Expiration Date Visits Requested Visits Authorized [id number] Pending Review Specialty Services Required 08/23/2024 02/19/2025 1 1 * (Routine) - Authorized Specialty Diagnoses / Procedures Referred By Deni edwards Referred To Contact Radiology Diagnoses Left carotid bruit Mixed hyperlipidemia (CMS/HCC) Procedures Vascular US carotid artery duplex bilateral Zuly Bruno NP [address] [place] [address] Referral ID Status Reason Start Date Expiration Date V isits Requested Visits Authorized [id number] Authorized 08/23/2024 02/19/2025 1 1 [facility] Instructions * Patient Instructions - Christin Elizabeth APRN-[employer] MAINTENANCE WORKER - 10/19/2018 9:21 AM EST You should take an extra dose of the lactulose as needed so that you are having 3-4 bowel movementsdaily. You should start the chemical dependency counseling as soon as possible. If you have questions, call the transplant social services coordinator Fidelina Pierson. in this encounter* Patient Instructions - Sophie Cary, SAMI - 10/12/2018 11:09 AM EST You have been seen in the pre-transplant evaluation clinic by Dr. Restrepo and Sophie Cary. Sophie Cary is your pre-social services coordinator she can be reached at [phone] at any time for questions during the pre-transplant process. Your evaluation is complete pendin. Abdominal ultrasound. 2. 6 minute walk test. 3. Cardiology evaluation. Additionally, your label printer will recommend testing to screen for coronary artery disease. This will be scheduled for you after your cardiology visit. 4. Your coordinator will be requesting record from your last dental visit, colonoscopy and EGD. 5. Please work to complete social work recommendations. Your social services coordinator will be contacting you to follow up on your progress. 6. You have also been referred for a kidney transplant. An appointment will be scheduled for you sari evaluated in the kidney transplant clinic after you have satisfied requirements dictated by yourDepop company. Once your testing is complete, we [...] ___ Other Name MRN * Christin Elizabeth, SOCIAL SERVICE ASSISTANT-TRAILHEAD MAINTENANCE WORKER - 10/19/2018 9:00 AM EST Formatting of this note may be different from the original. History of Present Illness: Chief Complaint Patient presents with Follow-up Cirrhosis George Styles is a 48 y.o. male who presents to the [facility] today regarding his diagnosis/chief complaint(s) of Cirrhosis secondary to ETOH, with ESRD follows with Dr. Orr. Currently undergoing evaluation for liver/kidney transplant. Has been seen in transplant clinic for eval. Still undergoing pre testing. Diagnosed in April 2018. Last drink was immediately prior to hospital admission in [place] for ACLF. Hospital course notable for ARF [...] (human immunodeficiency virus infection); Hyperlipidemia; Hyperthyroidism; Hypothyroidism; PR (myocardial infarction); Migraine; DARLENE (obstructive sleep apnea); [...] kidney transplant evaluation. Pt was AOx3. Transplant Boiler Blower role/function was explained and reviewed. The patient was informed that the results of this assessment will be shared with the referring provider and the transplant team. The patient verbalized understanding of this information. The [facility] psychosocial assessment consent form has been explained to patient and has been signed. Pt is completing this evaluation with brother (David) in the Outpatient setting. NANCYK educated pt on the benefits of completing/filing advanced directives and resources were offered. Pt identifies with WORSHIP shinto. Pt confirms being a [place] Citizen. Pt.'s primary language is Senegalese. Pt confirms the ability to read,write, and understand Senegalese. Pt denies potential donors. Donor cards and [...] has valid license, does not regularly drive ([facility] recommends that he not to drive). He [...] etoh cirrohosis April [facility] for thirty days. Pt reports [...] Patient's brother David is a self employed mental health therapist. Additional support includes his other brother Tyshawn and his Mary live fifteen minutes away. Of note Mary is a desk operator for a [employer] is available to assist editor department. He confirms being comfortable asking for [...] in 2010, he was employed by the [employer]. He has access to SSDI payment (SSDI starts in November) in regards to financial means pre/ post-transplant. Pt confirms (meeting bills currently, ) being able to meet daily needs. Patient's brother asking for additional information on community resources, food stamps and Heap. Refer him to pt.'s dialysis center and the [facility]. Hereports access to Medicaid. Pt. denies [...] treatment after a DUI charge [facility] in [place], court ordered treatment in 2001 and in [...] by patient from his primary medical provider- TRAILHEAD MAINTENANCE WORKER patient was noted as attending an [...] He was provided with local AOD resources, [facility] AOD informational packet. Pt was referred [...] new visit Date of service: 10/12/2018 -Referring river expedition guide for today's consult: -Primary Care Provider: Zuly Bruno CC: Chief Complaint Patient presents with Liver Recipient Evaluation History of Present Illness George Styles is a 48 y.o. male who presents to the [facility] liver transplant surgery clinic today for [...] EST Timed up and go 9.9 seconds Medical Office Worker Left 52.8 pounds Right 44.9 pounds Waist circ 38.5 inches * Sophie Cary RN - 10/12/2018 10:00 AM EST Formatting of this note may be different from the original. Patient George Styles ([id number]), accompanied by his brother, was seen on [...] any further questions. Sophie DON, RN Liver Employment Consultant Etiology: ETOH HCC: No ETOH: Yes [...] Yovani Orr MD [address] [address] Status Reason Specialty Diagnoses / Procedures Referred By Contact Referred To Contact New Request Diagnoses Cirrhosis of liver with ascites, unspecified hepatic cirrhosis type Procedures US ABDOMEN RUQ/LIVER/GB Yovani Orr MD [address] [place] [address] Specialty Diagnoses / Procedures Referred By Contac t Referred To Contact Diagnoses FAYE (acute kidney injury) Procedures CT ABDOMEN/PELVIS WITHOUT CONTRAST CHG CT SCAN,ABDOMENT AND PELVIS,W/O CONTRAST Central Scheduling [address] [place] [address] Referral ID Status Reason Start Date Expiration Date V isits Requested Visits Authorized [id number] Pending Review 05/16/2022 06/10/2023 1 1 Specialty Diagnoses / Procedures Referred By Contac t Referred To Contact Diagnoses Other hydronephrosis Procedures FLUORO IMAGING FOR UROLOGY Ryan Yepez MD [address] [facility] [address] [place] [address] Referral ID Status Reason Start Date Expiration Date V isits Requested Visits Authorized [id number] New Request 07/07/2022 08/01/2023 1 1 Specialty Diagnoses / Procedures Referred By Contac t Referred To Contact Procedures DIRECT ADMIT REQUEST Steve Munoz, LU [address] [place] [address] Referral ID Status Reason Start Date Expiration Date V isits Requested Visits Authorized [id number] New Request 08/28/2023 09/21/2024 1 1 Specialty Diagnoses / Procedures Referred By Contac t Referred To Contact Radiology Diagnoses DARLENE (obstructive sleep apnea) Primary hypertension (CMS/HCC) Bilateral lower extremity edema Shortness of breath Procedures Echocardiogram 2D complete Zuly Bruno NP [address] [place] [address] Referral ID Status Reason Start Date Expiration Date Visits Requested Visits Authorized [id number] Incomplete Perform Procedure 01/06/2024 07/04/2024 1 1 Specialty Diagnoses / Procedures Referred By Contac t Referred To Contact Procedures US IMAGING REGIONAL ANESTHESIA Kehinde Gutierrez MD [address] [place] [address] Referral ID Status Reason Start Date Expiration Date V isits Requested Visits Authorized [id number] New Request 01/22/2024 02/15/2025 1 1 Specialty Diagnoses / Procedures Referred By Contac t Referred To Contact Cardiovascular Medicine Diagnoses Heart failure, diastolic, acute Kelvin Pacheco MD, MBBS [address] [place] [address] Referral ID Status Reason Start Date Expiration Date V isits Requested Visits Authorized [id number] New Request 01/20/2024 02/13/2025 1 1 Specialty Diagnoses / Procedures Referred By Contac t Referred To Contact Procedures US ABDOMEN LIVER DOPPLER US ABDOMEN LIVER TRANSPLANT DOPPLER Timothy Joseph MD [address] [facility] [address] [place] [address] Referral ID Status Reason Start Date Expiration Date V isits Requested Visits Authorized [id number] New Request 01/16/2024 02/09/2025 1 1 Specialty Diagnoses / Procedures Referred By Contac t Referred To Contact Procedures DVT/VTE RISK ASSESSMENT Kelvin Pacheco MD, MBBS [address] [place] [address] Referral ID Status Reason Start Date Expiration Date V isits Requested Visits Authorized [id number] New Request 01/16/2024 02/09/2025 1 1 Specialty Diagnoses / Procedures Referred By Contac t Referred To Contact Procedures PLATELET MONITORING PER PROTOCOL Kelvin Pacheco MD, MBBS [address] [place] [address] Referral ID Status Reason Start Date Expiration Date V isits Requested Visits Authorized [id number] New Request 01/16/2024 02/09/2025 1 1 Referral ID Status Reason Start Date Expiration Date V isits Requested Visits Authorized [id number] New Request 01/16/2024 02/09/2025 1 1 Specialty Diagnoses / Procedures Referred By Contac t Referred To Contact Procedures ECG Kelvin Pacheco MD, MBBS [address] 1st [place] [address] Referral ID Status Reason Start Date Expiration Date V isits Requested Visits Authorized [id number] New Request 01/16/2024 02/09/2025 1 1 Specialty Diagnoses / Procedures Referred By Contac t Referred To Contact Diagnoses Liver lesion Procedures MRI ABDOMEN WITH AND WITHOUT CONTRAST CHG MRI ABDOMEN W/O & W/CONTRAST MATERIAL Daisha Max, [address] [place] [address] Referral ID Status Reason Start Date Expiration Date V isits Requested Visits Authorized [id number] New Request 06/17/2024 07/12/2025 1 1 Advance Directives No Advanced Directives Records FoundDocuments on File Type Date Recorded 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 Advance Directives and Living Will Power of Chemical Process Operator Latest Code Status on File Code [...] Yovani Orr MD [address] [address] Status Reason Specialty Diagnoses / Procedures Referre d By Contact Referred To Contact Denied Diagnoses Alcoholic cirrhosis, unspecified whether ascites present Pre-transplant evaluation for liver transplant Procedures MRI ABDOMEN WITH CONTRAST [place] MRI, ABDOMEN W/CONTRAST Yovani Orr MD [address] [address] Reason Comments Liver Recipient Evaluation Status Reason Specialty Diagnoses / Procedures Referred By Contact Referred To Contact New Request Transplant / Transplant Surgery Procedures PRE NEW PATIENT Yovani Orr MD [address] [address] Alfredito Restrepo MD [address] [place] [address] Reason Comments Reschedule Reason Comments Outside Medical Records Request Reason Comments Social Work Follow-up Reason Comments Kidney Stone Specialty Diagnoses / Procedures Referred By Deni edwards Referred To Contact Diagnoses Obstructing kidney stone, s/p kidney transplant 2019 Daya Saldana MD [address] [place] [address] [facility] [address] [place] [address] Referral ID Status Reason Start Date Expiration Date Visits Re quested Visits Authorized [id number] 1 1 Reason Comments Follow-up Reason Comments Kidney Recipient Follow-up Liver Recipient Follow-up Reason Comments Consult Reason Comments New Patient Hospital follow up Specialty Diagnoses / Procedures Referred By Deni edwards Referred To Contact Urology Diagnoses hosp fu with [address] prior Procedures NEW TO DOC/RET PATIENT Zuly Bruno, ROB [address] [place] [address] Ryan Yepez MD [address] [facility] [address] [place] [address] Referral ID Status Reason Start Date Expiration Date Visits Re quested Visits Authorized [id number] Closed 06/27/2022 07/22/2023 1 1 Specialty Diagnoses / Procedures Referred By Contac t Referred To Contact Diagnoses FAYE (acute kidney injury) Procedures CT ABDOMEN/PELVIS WITHOUT CONTRAST CHG CT SCAN,ABDOMENT AND PELVIS,W/O CONTRAST Central Scheduling [address] [place] [address] Referral ID Status Reason Start Date Expiration Date V isits Requested Visits Authorized [id number] Pending Review 05/16/2022 06/10/2023 1 1 Reason Comments Follow-up Specialty Diagnoses / Procedures Referred By Contac t Referred To Contact Urology Diagnoses 1 week fu post NT clamp Procedures RETURN PATIENT Zuly Bruno CNP [address] [place] [address] Ryan Yepez MD [address] [facility] [address] [place] [address] Referral ID Status Reason Start Date Expiration Date Visits Requested Visits Authorized [id number] Authorized - 07/07/2022 08/01/2023 2 2 Specialty Diagnoses / Procedures Referred By Contac t Referred To Contact Diagnoses Other hydronephrosis Procedures FLUORO IMAGING FOR UROLOGY Ryan Yepez MD [address] [facility] [address] [place] [address] Referral ID Status Reason Start Date Expiration Date V isits Requested Visits Authorized [id number] New Request 07/07/2022 08/01/2023 1 1 Specialty Diagnoses / Procedures Referred By Contac t Referred To Contact Urology Diagnoses 1 week fu post NT clamp Procedures RETURN PATIENT Zuly Bruno, TRAILHEAD MAINTENANCE WORKER [address] [place] [address] Ryan Yepez MD [address] [facility] [address] [place] [address] Referral ID Status Reason Start Date Expiration Date Visits Re quested Visits Authorized [id number] Closed 07/07/2022 08/01/2023 2 2 Reason Comments Liver Recipient Follow-up Reason Comments Kidney Recipient Follow-up Reason Comments Kidney Recipient Follow-up Specialty Diagnoses / Procedures Referred By Contac t Referred To Contact Diagnoses Kidney replaced by transplant Steve Munoz MBBS [address] [place] [address] [facility] [address] [place] [address] Referral ID Status Reason Start Date Expiration Date Visits Re quested Visits Authorized [id number] 1 1 Specialty Diagnoses / Procedures Referred By Contac t Referred To Contact Diagnoses Pleural effusion on right PNEUMONIA- HX LIVER AND KIDNEY TRANSPLANT Reees Sage MD [address] [place] [address] [facility] [address] [place] [address] Referral ID Status Reason Start Date Expiration Date Visits Re quested Visits Authorized [id number] 1 1 Reason Comments New Patient Specialty Diagnoses / Procedures Referred By Contac t Referred To Contact Cardiovascular Medicine Diagnoses Heart failure, diastolic, acute Kelvin Pacheco MD, MBBS [address] 1[address] [place] [address] Referral ID Status Reason Start Date Expiration Date Visits Requested Visits Authorized [id number] Authorized - 01/20/2024 02/13/2025 5 5 Reason Comments Liver Recipient Follow-up Reason Onset Date Comments Med Refill 10/01/2024 Reason Comments Med Refill Reason Onset Date Comments Med Refill 08/11/2024 Reason Comments Hypertension Reason Onset Date Comments Med Refill 01/05/2025 (unrecognized sect ion and content) No Status Records FoundNo Status Records FoundNo Status Records FoundNo Status Records FoundNo Status Records FoundNo Status Records FoundNo Status Records FoundNo Status Records Found INFORMATION SOURCE (unrecogn ized section and content) DATE CREATED AUTHOR 01/07/2020 [facility] DATE CREATED AUTHOR AUTHOR'S ORGANIZ ATION 01/27/2021 [facility] DATE CREATED AUTHOR AUTHOR'S ORGANIZ ATION 05/11/2023 [facility] DATE CREATED AUTHOR AUTHOR'S ORGANIZ ATION 06/03/2024 [facility] DATE CREATED AUTHOR AUTHOR'S ORGANIZ ATION 11/10/2024 [facility] EPIC DATE CREATED AUTHOR AUTHOR'S ORGANIZ ATION 01/05/2025 [facility] DATE CREATED AUTHOR AUTHOR'S ORGANIZ ATION [facility]/2025 [facility] DATE CREATED AUTHOR AUTHOR'S ORGANIZ ATION 01/28/2025 [facility] Care Teams (unrecognized sec tion and content) Quantitative Associate Relationship Specialty Start Date End Date Zuly Bruno CNP PCP - General 07/19/18 Comfort Rivera, [facility] [address] [facility] [place] [address] Pharmacist Pharmacist 05/16/20 Angel Carpio RPh,PharmD Pharmacist Pharmacist 05/16/20 Te Leigh RPh,PharmD Pharmacist Pharmacist 01/09/21 Quantitative Associate Relationship Specialty Start Date End Date Zuly Bruno CNP PCP - General 07/19/18 Comfort Rivera, [facility] [address] [facility] [address] [place] [address] Pharmacist Pharmacist 05/16/20 Angel Carpio RPh,PharmD Pharmacist Pharmacist 05/16/20 Te Leigh [facility],PharmD Pharmacist Pharmacist 01/09/21 Quantitative Associate Relationship Specialty Start Date End Date Zuly Bruno CNP PCP - General 07/19/18 Quantitative Associate Relationship Specialty Start Date End Date Zuly Bruno CNP PCP - General 07/19/18 Quantitative Associate Relationship Specialty Start Date End Date Zuly Bruno CNP PCP - General 07/19/18 Quantitative Associate Relationship Specialty Start Date End Date BrianlatishaZuly tipton TRAILHEAD MAINTENANCE WORKER PCP - General 07/19/18 Quantitative Associate Relationship Specialty Start Date End Date BrianlatishaZuly tipton CNP PCP - General 07/19/18 Quantitative Associate Relationship Specialty Start Date End Date Zuly Bruno CNP PCP - General 07/19/18 Quantitative Associate Relationship Specialty Start Date End Date Zuly Bruno CNP PCP - General 07/19/18 Quantitative Associate Relationship Specialty Start Date End Date BrainlatishaZuly tipton CNP PCP - General 07/19/18 Quantitative Associate Relationship Specialty Start Date End Date Zuly Bruno TRAILHEAD MAINTENANCE WORKER PCP - General 07/19/18 Quantitative Associate Relationship Specialty Start Date End Date Zuly Bruno, TRAILHEAD MAINTENANCE WORKER PCP - General 07/19/18 Quantitative Associate Relationship Specialty Start Date End Date MarissaZuly tipton TRAILHEAD MAINTENANCE WORKER PCP - General 07/19/18 Quantitative Associate Relationship Specialty Start Date End Date Zuly Bruno CNP PCP - General 07/19/18 Quantitative Associate Relationship Specialty Start Date End Date Zuly Bruno CNP PCP - General 07/19/18 Quantitative Associate Relationship Specialty Start Date End Date Zuly Bruno CNP PCP - General 07/19/18 Quantitative Associate Relationship Specialty Start Date End Date BrianlatishaZuly tipton CNP PCP - General 07/19/18 Evan White DO [facility] [place] [address] Infectious Disease Infectious Disease 09/09/23 Quantitative Associate Relationship Specialty Start Date End Date LexieZuly steve CNP PCP - General 07/19/18 Evan White DO [facility] [place] [address] Infectious Disease Infectious Disease 09/09/23 Quantitative Associate Relationship Specialty Start Date End Date Lexiesylvesterlatishasaeed Zuly, ROB PCP - General 07/19/18 Evan White DO [facility] [employer] [place], [place] [id number] Infectious Disease Infectious Disease 09/09/23 Quantitative Associate Relationship Specialty Start Date End Date Momo Verdugo MD PCP - General Family Medicine 05/21/23 Quantitative Associate Relationship Specialty Start Date End Date Momo Verdugo MD PCP - General Family Medicine 05/21/23 Quantitative Associate Relationship Specialty Start Date End Date Momo Verdugo MD PCP - General Family Medicine 05/21/23 Quantitative Associate Relationship Specialty Start Date End Date Zuly Bruno CNP PCP - General 07/19/18 Evan White DO [address] [place] [address] Infectious Disease Infectious Disease 09/09/23 Quantitative Associate Relationship Specialty Start Date End Date Zuly Bruno CNP PCP - General 07/19/18 Evan White DO [address] [place] [address] Infectious Disease Infectious Disease 09/09/23 Quantitative Associate Relationship Specialty Start Date End Date Zuly Bruno CNP PCP - General 07/19/18 Evan White DO [facility] [place] [address] Infectious Disease Infectious Disease 09/09/23 Quantitative Associate Relationship Specialty Start Date End Date Zuly Bruno CNP PCP - General 07/19/18 Evan White DO [facility] [place] [address] Infectious Disease Infectious Disease 09/09/23 Quantitative Associate Relationship Specialty Start Date End Date Zuly Bruno CNP PCP - General 07/19/18 Evan White DO [facility] [place] [address] Infectious Disease Infectious Disease 09/09/23 Quantitative Associate Relationship Specialty Start Date End Date Zuly Bruno CNP PCP - General 07/19/18 Quantitative Associate Relationship Specialty Start Date End Date Zuly Bruno CNP PCP - General 07/19/18 Quantitative Associate Relationship Specialty Start Date End Date Zuly Bruno CNP PCP - General 07/19/18 Quantitative Associate Relationship Specialty Start Date End Date Zuly Bruno CNP PCP - General 07/19/18 Quantitative Associate Relationship Specialty Start Date End Date Zuly Bruno CNP PCP - General 07/19/18 Quantitative Associate Relationship Specialty Start Date End Date Zuly Bruno CNP PCP - General 07/19/18 Quantitative Associate Relationship Specialty Start Date End Date Zuly Bruno CNP PCP - General 07/19/18 Quantitative Associate Relationship Specialty Start Date End Date Momo Verudgo MD [address] [place] [address] PCP - General Family Medicine 02/11/24 Zuly Bruno NP [address] [place] [address] Nurse Practitioner Family Medicine 02/11/24 Kasandra Thomas DO [address], [place] [phone] Referring Physician Neurology 02/17/24 Quantitative Associate Relationship Specialty Start Date End Date Momo Verdugo MD [address] [place] [address] PCP - General Family Medicine 02/11/24 Zuly Bruno NP [address] [place] [address] Nurse Practitioner Family Medicine 02/11/24 Kasandra Thomas DO [address] [place], [place] [id number] Referring Physician Neurology 02/17/24 Quantitative Associate Relationship Specialty Start Date End Date Momo Verdugo MD [address] [place] [address] PCP - General Family Medicine 02/11/24 Zuly Bruno NP [address] [place] [address] Nurse Practitioner Family Medicine 02/11/24 Kasandra Thomas DO [address] [place] [address] Referring Physician Neurology 02/17/24 Quantitative Associate Relationship Specialty Start Date End Date Momo Verdugo MD [address] [place] [address] PCP - General Family Medicine 02/11/24 Zuly Bruno NP [address] [place] [address] Nurse Practitioner Family Medicine 02/11/24 Kasandra Thomas DO [address] [place] [address] Referring Physician Neurology 02/17/24 Quantitative Associate Relationship Specialty Start Date End Date Momo Verdugo MD [address] [place] [address] PCP - General Family Medicine 02/11/24 Zuly Bruno NP [address] [place] [address] Nurse Practitioner Family Medicine 02/11/24 Kasandra Thomas DO [address] [place] [address] Referring Physician Neurology 02/17/24 Quantitative Associate Relationship Specialty Start Date End Date Momo Verdugo MD [address] [place] [address] PCP - General Family Medicine 02/11/24 Zuly Brnuo, BA [address] [place] [address] Nurse Practitioner Family Medicine 02/11/24 Kasandra Thomas DO [address] [place] [address] Referring Physician Neurology 02/17/24 Quantitative Associate Relationship Specialty Start Date End Date Momo Verdugo MD [address] [place] [address] PCP - General Family Medicine 02/11/24 Zuly Bruno, INSURANCE INSPECTOR [address] [place] [address] Nurse Practitioner Family Medicine 02/11/24 Kasandra Thomas DO [address] [place] [address] Referring Physician Neurology 02/17/24 Quantitative Associate Relationship Specialty Start Date End Date Momo Verdugo MD [address] [place] [address] PCP - General Family Medicine 02/11/24 Zuly Bruno NP [address] [place] [address] Nurse Practitioner Family Medicine 02/11/24 Kasandra Thomas DO [address] [place] [address] Referring Physician Neurology 02/17/24 Quantitative Associate Relationship Specialty Start Date End Date Momo Verdugo MD [address] [place] [address] PCP - General Family Medicine 02/11/24 Zuly Bruno NP [address] [place] [address] Nurse Practitioner Family Medicine 02/11/24 Kasandra Thomas DO [address], [place] [phone] Referring Physician Neurology 02/17/24 Quantitative Associate Relationship Specialty Start Date End Date Momo Verdugo MD [address] [place] [address] PCP - General Family Medicine 02/11/24 Zuly Bruno NP [address] [place] [address] Nurse Practitioner Family Medicine 02/11/24 Kasandra Thomas DO [address] [place] [address] Referring Physician Neurology 02/17/24 Quantitative Associate Relationship Specialty Start Date End Date Momo Verdugo MD [address] [place] [address] PCP - General Family Medicine 02/11/24 Zuly Bruno NP [address] [place] [address] Nurse Practitioner Family Medicine 02/11/24 Kasandra Thomas DO [address] [place] [address] Referring Physician Neurology 02/17/24 Team Status: Active [...] Other Provider Active Start: December 26, 2024 Quantitative Associate Relationship Specialty Start Date End Date Momo Verdugo MD [address] [place] [address] PCP - General Family Medicine 02/11/24 Zuly Bruno NP [address] [place] [address] Nurse Practitioner Family Medicine 02/11/24 Kasandra Thomas DO [address] [place] [address] Referring Physician Neurology 02/17/24 Quantitative Associate Relationship Specialty Start Date End Date Momo Verdugo MD [address] [place] [id number] PCP - General Family Medicine 02/11/24 Zuly Bruno NP [address] [place] [address] Nurse Practitioner Family Medicine 02/11/24 Kasandra Thomas DO [address] [place] [address] Referring Physician Neurology 02/17/24 Scheduled Active and [...] 0805 (Given - Provider: Jsoey Braun RN) 0930 (Given - Provider: Leon Joey, RN) atorvastatin (LIPITOR) tablet 20 mg 20 [...] Josey Braun RN)2059 (Given - Provider: Carolyn Isaac, SAMI) 0742 (Given - Provider: Leon Cook RN)1502 (Given - Provider: Leon Cook RN) losartan (COZAAR) tablet 50 mg 50 mg, Oral, 2 TIMES DAILY, First dose on Thu05/16/22 at 0900, Until Discontinued 0900 (Automatically Held - Provider: Fred Prince MD)1700 (Automatically Held - Provider: Fred Prince MD) 0900 (Automatically Held - Provider: Fred Prnice [...] Cook, RN)1322 (Stopped - Provider: Leon Cook, SAMI) mycophenolate sodium (MYFORTIC) tablet DR 360 mg 360 mg, Oral, EVERY 12 HOURS NON-STANDARD, First dose on Thu05/15/22 at 2245, Until Discontinued, Give on an [...] 0825 (See Alternative - Provider: Josey Braun, SAMI)2105 (See Alternative - Provider: Carolyn Isaac RN) [...] swallowed separately. 08 (Given - Provider: Terra Heatr RN) 09 (Given - Provider: Cheyanne Mcdonough, SAMI) Sulfamethoxazole-trime [...] 0829 (Given - Provider: Terra Heart, RN) tacrolimus (PROGRAF) susp 0.25 mg 0.25 [...] - Provider: Automatic Transfer)180 (Given - Provider: eTrra Heart RN) 0920 (Given - Provider: Terra [...] 08 (Given - Provider: Terra Heart RN)1053 (JAN Hold - Provider: Automatic Transfer - Reason: Transfer to a Procedural area)141 (JAN Unhold - Provider: Automatic Transfer)2008 (Given - Provider: Ttai Ahmadi RN) 09 (Given - Provider: Terra [...] allow absorption. 08 (Given - Provider: Erica Ross RN) 105 (JAN Hold - Provider: Automatic Transfer - Reason: Transfer to a Procedural area)141 (MAR Unhold - Provider: Automatic Transfer) 09 (Given - Provider: Terra Heart RN) Tamsulosin HCl (FLOMAX) capsule 0.4 mg 0.4 mg, Oral, DAILY, First dose on 01/16/24 at 0900, Until Discontinued, Slow release product. Do not chew or crush 42 (Given - Provider: Erica Ross RN) 08 (Given - Provider: Terra Heart RN)1053 ([facility] [...] 01/23/24 at 1752, Constipation 1st Line 1053 ([facility] Hold - [...] rate of 5mg/min. Maximum of 40mg/day. 1053 ([facility] Hold - [...] BE BASED ON THE PRIMARY CLINICAL RECORDS. [employer] provides no warranty or guarantee of the accuracy or completeness of information in this document.
[2025-01-31 07:13] LABS: Basophils Percent Auto 0.7 % (0.2-2.0); Eosinophils Absolute Auto 0.1 10^3/uL (0.0-0.7); Eosinophils Percent Auto 2.9 % (0.9-7.0); Hematocrit 46.7 % (42.0-54.0); Hemoglobin 15.5 g/dL (14.0-18.0); Immature Granulocytes Abs Auto 0.01 10^3/uL (0.00-0.03); Immature Granulocytes Pct Auto 0.2 % (0.0-0.5); Lymphocytes Absolute Auto 1.6 10^3/uL (1.2-3.8); Mean Corpuscular HGB Conc 33.2 g/dL (29.9-35.2); Mean Corpuscular Hemoglobin 29.5 pg (25.9-34.0); Mean Corpuscular Volume 88.8 fL (80.0-94.0); Mean Platelet Volume 9.9 fL (9.5-13.5); Monocytes Absolute Auto 0.4 10^3/uL (0.3-0.8); Monocytes Percent Auto 9.3 % (1.7-12.0); Neutrophils Absolute Auto 2.3 10^3/uL (1.4-6.5); Neutrophils Percent Auto 51.9 % (43.0-75.0); Platelet Count 219 10^3/uL (150-450); Red Blood Count 5.26 10^6/uL (4.70-6.10); Red Cell Distribution Width 12.6 % (11.0-15.0); White Blood Count 4.5 10^3/uL (4.0-11.0)
[2025-01-31 08:13] LABS: Alanine Aminotransferase 21 U/L (16-63); Albumin Level 3.9 g/dL (3.4-5.0); Alkaline Phosphatase 91 U/L (46-116); Anion Gap 11.8; Aspartate Amino Transferase 20 U/L (15-37); Bilirubin Direct 0.2 mg/dL (0.0-0.2); Bilirubin Total 1.1 mg/dL (0.2-1.0); Calcium 9.5 mg/dL (8.5-10.1); Carbon Dioxide 27.1 mmol/L (21.0-32.0); Chloride 105 mmol/L (98-107); Estimated GFR (African America >60 (>=60 mL/min/1.73m^2); Estimated GFR (Non-African Ame 56 (>=60 mL/min/1.73m^2); Gamma Glutamyl Transpeptidase 23 U/L (15-85); Glucose 117 mg/dL (74-106); Magnesium 1.8 mg/dL (1.8-2.4); Phosphorus 2.8 mg/dL (2.6-4.7); Potassium 3.9 mmol/L (3.5-5.1); Sodium 140 mmol/L (136-145)
== END 2025-01-31 06:34 | disposition home or self-care (01) ==
LOC: LAB 06:36
PROVIDERS: PCP Nurse Practitioner
DX: Z48.298 Encounter for aftercare following other organ transplant (principal); Z94.4 Liver transplant status; Z79.899 Other long term (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; Z51.81 Encounter for therapeutic drug level monitoring
CPT/HCPCS: 36415; 80048; 80197; 82042; 82247; 82248; 82977; 83735; 84075; 84100; 84450; 84460; 85025

== ENCOUNTER 2025-03-07 06:41 | Outpatient (OUT) | payer MEDICARE, SELFPAY ==
--- OUTSIDE RECORDS SUMMARY | 2025-03-07 06:49 | XMS_ITS | CCD ---
Author Organization [facility] Care Team Providers Care 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 Name Role Phone Kiana Zuly Unavailable Unavailable [...] Unavailable AICHHOLZ, ZULY Primary Care Unavailable Aichholz [facility], [facility] Primary Care Provider Miguel [facility] Shirin [facility],PharmD, Angel Unavailable Unavailab makayla Leigh [facility],PharmD, Te Unavailable Unavai lable Aicholz [facility], Zuly Primary Care Provider CRISTINA, DR BURCH Admitting Unavailable MISC, DR BURCH Consulting Unavailable AICHHOLZ, [employer]IST ZULY Primary Care Unavailable MISC, DR BURCH Attending Unavailable MISC, DR BURCH Admitting Unavailable MISC, DR BURCH Consulting Unavailable AICHHOLZ, [employer]IA SPECIALIST ZULY Primary Care Unavailable MISC, DR BURCH Attending Unavailable ARCELIA PIZARRO Consulting Unavailable KE BURNHAM Attending Unavailable KE BURNHAM Admitting Unavailable DR MÓNICA JIMENEZ Consulting Unavailable AICHHOLZ, [employer] MEDIA SPECIALIST ZULY Primary Care Unavailable KE BURNHAM Consulting Unavailable MISC, DR BURCH Consulting Unavailable MISC, DR BURCH Attending Unavailable AICHHOLZ, [employer] MEDIA SPECIALIST ZULY Primary Care Unavailable MISC, DR BURCH Admitting Unavailable MISC, DR BURCH Consulting Unavailable MISC, DR DOCTOR Attending Unavailable AICHHOLZ, [employer]IA SPECIALIST ZULY Primary Care Unavailable MISC, DOCTOR Admitting Unavailable MISC, DR DOCTOR Consulting Unavailable AICHHOLZ, [employer] MEDIA SPECIALIST ZULY Primary Care Unavailable MISC, DOCTOR Admitting Unavailable MISC, DR DOCTOR Attending Unavailable MELINDA, DR GEORGE Munoz Consulting Unavailable MELINDA, DR GEORGE Munoz Attending Unavailable AICHHOLZ, [employer] MEDIA SPECIALIST UZLY Primary Care Unavailable MELINDA, DR GEORGE Munoz Admitting Unavailable NAUN ., KE Consulting Unavailable MIRANDA, LYNDSAY Consulting Unavailable MELINDA, DR GEORGE Munoz Consulting Unavailable NAUN ., KE Attending Unavailable NAUN ., KE Admitting Unavailable AICHHOLZ, [employer] MEDIA SPECIALIST ZULY Primary Care Unavailable NAUN ., KE Consulting Unavailable GIAN HERRING Consulting Unavailable AICHHOLZ, H[employer] MEDIA SPECIALIST ZULY Consulting Unavailable AICHHOLZ, [employer] MEDIA SPECIALIST ZULY Attending Unavailable AICHHOLZ, [employer] MEDIA SPECIALIST ZULY Admitting Unavailable AICHHOLZ, [employer] MEDIA SPECIALIST ZULY Primary Care Unavailable MISC, DOCTOR Consulting Unavailable MISC, DOCTOR Admitting Unavailable MISC, DOCTOR Attending Unavailable AICHHOLZ, [employer] MEDIA SPECIALIST ZULY Primary Care Unavailable MISC, DR DOCTOR Consulting Unavailable MISC, DR DOCTOR Attending Unavailable MISC, DR DOCTOR Admitting Unavailable AICHHOLZ, [employer] MEDIA SPECIALIST ZULY Primary Care Unavailable MISC, DOCTOR Admitting Unavailable MISC, DOCTOR Consulting Unavailable MISC, DR DOCTOR Attending Unavailable AICHHOLZ, H[employer] MEDIA SPECIALIST ZULY Primary Care Unavailable MISC, DOCTOR Admitting Unavailable MISC, DR DOCTOR Consulting Unavailable AICHHOLZ, H[employer] MEDIA SPECIALIST ZULY Primary Care Unavailable MISC, DR DOCTOR Attending Unavailable MISC, DOCTOR Admitting Unavailable MISC, DR DOCTOR Consulting Unavailable AICHHOLZ, [employer] MEDIA SPECIALIST ZULY Primary Care Unavailable MISC, DR DOCTOR Attending Unavailable AICHHOLZ, H[employer] MEDIA SPECIALIST ZULY Consulting Unavailable AICHHOLZ, H[employer] MEDIA SPECIALIST ZULY Attending Unavailable AICHHOLZ, H[employer] MEDIA SPECIALIST ZULY Admitting Unavailable AICHHOLZ, H[employer] MEDIA SPECIALIST ZULY Primary Care Unavailable DR MÓNICA JIMENEZ Consulting Unavailable Aichholz [facility], Zuly Primary Care Provider Evan White DO Unavailable Aichholz [facility], Zuly Primary Care Provider [phone] Evan White DO Unavailable Momo Verdugo MD Primary Care Provider [phone] Aicholz [employer]IST, Zuly Primary Care Provider MIGUEL CARDONA Attending Unavailable KIANA ZULY Magalie Primary Care Physician [phone] Momo Verdugo MD Primary Care Provider Aicjose e CAUSTIC PREPARER, Zuly Unavailable Kasandra Thomas DO Unavailable Zuly Bruno Primary Care Provider Briseida LUZ, [place] Attending Provider [phone] LexieZuly dorantes Primary Care Unavailable Asaad, Imad Attending Unavailable Asaad, Imad Admitting Unavailable Orzech, Steph X Attending Unavailable Orzech, Steph X Attending Unavailable Orzech, Steph Wilson Attending Unavailable GalClementina caldwell Attending Unavailable AICHHOLOmer, ZULY J Referring Unavailable GaleaClementina Attending Unavailable AICHHOLZ, ZULY Primary Care Unavailable DAISHA MAX Attending Unavailable SELF, SELF Referring Unavailable AICHHOLZ, ZULY Primary Care Unavailable REBECA GUTIERREZ Attending Unavailable SELF, SELF Referring Unavailable HAKEEM ALAMO Attending Unavailable AICHHOLZ, ZULY Primary Care Unavailable SELF, SELF Referring Unavailable AICHHOLZ, ZULY Primary Care Unavailable EVAN WHITE Attending Unavailabl e SELF, SELF Referring Unavailable AICHHOLZ, ZULY Attending Unavailable TONY HERNANDEZ Attending Unavailable AICHHOLZ, ZULY Referring Unavailable BRINK, JOHNNA Attending Unavailable AICHHOLZ, ZULY Referring Unavailable BRINK, JOHNNA Attending Unavailable AICHHOLZ, ZULY Referring Unavailable BRINK, JOHNNA Attending Unavailable AICHHOLZ, ZULY Referring Unavailable FIDELINA [...] Propensity to adverse reactions (disorder) 8 [facility] (20 sources) Shellfish-Deriv ed Products Propensity to adverse reactions to drug 9 [facility] (5 sources) Shellfish; Translations: [shellfish] Drug allergy (disorder) Anaphylaxis (disorder) [facility] Medications Current Medications Medication Drug Class(es) [...] at 0900, Until Discontinued Start: 01-15-2023 End: 05-25-2025 take 2 tablets by mouth once daily in the morning allopurinol (Zyloprim) 100 MG tablet Indications: Elevated blood uric acid level Take 2 tablets (200 mg) by mouth Daily Take 2 tablets by mouth in the morning. 180 tablet 1 02/24/2025 05/25/2025 Active Start: 05-17-2022 End: 05-20-2022 allopurinol (ZYLOPRIM) [...] (20 sources) Dihydropyridine Calcium Channel Melissa Start: 01-31-2025 End: 05-09-2025 take 1 tablet by mouth once daily amLODIPine (Norvasc) 5 MG tablet Indications: Primary hypertension (CMS/HCC) Take 1 tablet (5 mg) by mouth Daily 90 tablet 1 02/08/2025 05/09/2025 Active Start: 08-12-2024 End: 11-10-2024 take 1 tablet [...] 1 capsule by mouth once daily b zcnbnbm-V-yznmo acid (NEPHROCAPS) 1 MG capsule Take 1 [...] oral capsule (1 source) Tetracycline-class Drug Start: End: take 1 capsule by mouth twice daily doxycycline hyclate 100 mg Cap 100 mg = 1 cap(s), Oral, BID, may substitute hyclate for monohydrate based on availability, X 4 week(s), # 56 cap(s), Refills(s) 0, Pharmacy: [facility], 170, cm, 01/03/25 11:03:00 EST, Height/Length [...] (20 mg) before bedtime. 180 tablet 1 02/08/2025 05/09/2025 Active Start: 02-08-2024 End: 11-21-2024 take 1 tablet by mouth in the [...] mouth once daily 20 mg, Oral, DAILY, First dose on Thu05/16/22 at 0900, Until Discontinued folic acid 1 mg oral tablet (6 sources) take 1 tablet by mouth once daily folic acid (FOLVITE) 1 MG tablet Take 1 mg by mouth daily 0 Active gabapentin 400 mg oral capsule (20 sources) Anti-epileptic Agent Start: 01-06-2025 End: 05-09-2025 take 1 capsule by mouth at bedtime gabapentin (Neurontin) 400 MG capsule Indications: Other polyneuropathy Take 1 capsule (400 mg) by mouth at bedtime 90 capsule 1 02/08/2025 05/09/2025 Active Start: 06-07-2023 End: 09-25-2024 take 1 [...] Oral, DAILY AT BEDTIME NEEDED, Starting on 08/28/23 at 1738, Until Thu09/11/23 at 1645, Insomnia Start: 05-15-2022 End: 11-07-2024 take 3 mg by mouth once daily at bedtime as needed 3 mg, Oral, DAILY AT BEDTIME NEEDED, Starting on 01/16/24 at 0141, Until Tu01/19/24 at 0016, Insomnia Multiple Vitamins-Minerals (THERAPEUTIC MULTIVITAMIN-MINERALS) [...] Status: Ordered take 1 tablet by magy th every eight hours as needed for nausea and vomiting ondansetron (Zofran) 4 MG tablet Take 1 tablet by mouth every 8 (eight) hours if needed for nausea or vomiting Active polyethylene glycol 3350 09107 mg powder for oral solution (20 sources) [...] on 0.5mg capsules. 10/03/2024 Active Start: 09-15-2024 take 0.5 mg by mouth once Prog rashid 0.2 MG pack Indications: Liver Transplant Status Take 0.5 mg by mouth every 12 (twelve) hours 09/15/2024 Active Start: 09-15-2024 Prograf 0.2 MG pack [...] 03-10-2023 take 0.2 mg by mouth once tacr olimus (Prograf) 0.5 MG capsule Indications: Liver Transplant Status , Renal Transplant Status Take 0.2 mg by mouth every 12 (twelve) hours 5 days a week (Thursday-Thursday) 03/10/2023 Active Start: 03-10-2023 End: 09-10-2023 take 0.5 mg by mouth every twelve hours 0.5 mg, Oral, EVERY 12 HOURS, First dose on Thu08/28/23 at 2100, Until Discontinued Do not split, break, crush, or open doses of this medication. Contact pharmacy if altered dose or route needed. Start: 08-20-2022 take 1 capsule by [facility] every twelve hours Tacrolimus (PROGRAF) 0.5 [...] needed. Start: 03-14-2022 take 1 capsule by [facility] every twelve hours tacrolimus (PROGRAF) 0.5 MG capsule Indications: -donor kidney transplant recipient , Liver transplant recipient Take 2 capsules by mouth every 12 hours. 360 capsule 1 03/14/2022 Active Start: 01-11-2021 take 1 capsule by [facility] twice daily tacrolimus (generic) 0.5 MG capsule Indications: Liver transplant recipient , -donor kidney transplant recipient Take 3 capsules by mouth 2 times daily. 180 capsule 5 01/11/2021 Active tamsulosin hydrochloride 0.4 mg oral capsule (20 sources) alpha-Adrenergic Melissa Start: 10-03-2024 End: 11-17-2025 tamsulosin (Flomax) 0.4 MG 24 hr capsule 0.4 mg 11/22/2024 11/17/2025 Active Start: 10-03-2024 take 1 capsule by [facility] once daily Tamsulosin HCl 0.4 MG capsule Take 1 capsule by mouth daily. 90 capsule 1 10/03/2024 Active Start: 09-08-2024 End: 11-17-2025 take 1 capsule by mouth twice daily tamsulosin 0.4 mg Cap 0.4 mg = 1 cap(s), Oral, BID, X 90 day(s), # 180 cap(s), Refills(s) 3, Pharmacy: [facility], 170, cm, 09/08/24 14:00:00 EDT, Height/Length [...] tablet (5 sources) [facility] vitamin D (CHOLECALCIFEROL) 1000 UNIT [...] itraconazole Fax results to: Dr. White - [phone] Transplant [facility] - [phone] Each 09/10/2023 01/19/2024 Discontinued (Medication Reconciliation (suppress cancel msg)) Start: 09-10-2023 CUSTOM MEDICAT ION Labs to be obtained: 1- Tacrolimus level, trough - collect twice weekly until 09/24/23, then weekly until 10/08/23, them once every two weeks there after. 2- Itraconazole level - obtain once between 09/14-09/18. 3- Chem 6 - Obtain weekly while on itraconazole Fax results to: Dr. White - [phone] Transplant Neph - [phone] Each 0 09/10/2023 Active Diatrizoate (1 [...] Discharge) Start: 09-06-2020 take 1 tablet by mgay th once daily multivitamin w/ minerals tablet [...] AN PO) Take by mouth. Active sennosides, detention 8.6 mg oral tablet (1 source) Start: [...] mg/ml injection (7 sources) Start: 01-16-2024 End: 02-24-2024 Intravenous, at 20 mL/hr, NEEDED, Starting on [...] 2024 9:21am tadalafil 10 mg oral tablet (6 sources) Phosphodiesterase 5 Inhibitor Start: 11-22-2024 take 1 tablet by mouth every hour, then take 2 tablets by mouth every twenty-four hours Cialis 10 mg Tab 10 mg = 1 tab(s), Oral, As Directed, take 1 tab at least 1 hr prior to intercourse, do not exceed 20 mg (2 tab) in 24 hrs, # 30 tab(s), Refills(s) 5, Pharmacy: [facility], 170, cm, 11/22/24 9:39:00 EST, Height/Length Dosing, 90, kg, 11/22/24 9:39:00 EST, Weight Dosing Start Date: 11/22/24 Status: Ordered take 1 tablet by magy every twenty-four hours as needed tadalafil (Cialis) 10 MG tablet Take 10 mg by mouth Daily as needed for erectile dysfunction Active (2 sources) Start: 09-12-2023 End: 09-11-2023 [...] Overview: Added automatically from request for surgery [id number] Coagulation and hemorrhagic disorders (4 sources) Hypercoagulability state; Translations: [Other primary thrombophilia] 08-21-2018 Chronic Congestive heart failure; nonhypertensive (20 sources) Acute diastolic heart failure; Translations: [Acute diastolic (congestive) heart failure] Onset: 4 01-20-2024 Chronic Coronary atherosclerosis and other heart disease (20 sources) Coronary arteriosclerosis; Translations: [Atherosclerotic heart disease of [place] coronary artery without angina pectoris] Onset: 3 [...] [HEADACHE UNSPECIFIED] Onset: 2 Hyperplasia of prostate (14 sources) Benign prostatic hypertrophy with outflow obstruction; [...] Translations: [Moderate protein-calorie malnutrition] 08-04-2018 Chronic Osteoporosis (20 sources) Osteoporosis; Translations: [Other osteoporosis without current [...] sources) Taking high risk medication; Translations: [Other roasterman (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] Episodic Other aftercare (1 [...] Overview: Added automatically from request for surgery [id number] Other liver diseases (3 sources) Liver transplant [...] [Hypoxemia] 09-10-2023 Episodic Other male genital disorders (7 sources) Male erectile dysfunction, unspecified; Translations: [Erectile [...] urea cycle metabolism, unspecified] 04-14-2019 Chronic Other nutritional; endocrine; and metabolic disorders (5 sources) Hyperuricemia; Translations: [Hyperuricemia without signs of inflammatory arthritis and tophaceous disease] Onset: 5 02-24-2025 Episodic Other screening for suspected conditions (not [...] organ and tissue status, unspecified] Onset: 3 Resolved: 5 02-11-2024 Chronic Residual codes; unclassified (1 source) [...] Overview: Added automatically from request for surgery [id number] Allergic reactions (20 sources) Eczema; Translations: [Dermatitis, [...] 05-10-2020 Episodic Other aftercare (1 source) Other snf (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; Translations: [OTH PLATE PREPARER 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 THERAPY] Onset: 2 Episodic Other aftercare (1 source) jail (current) use of aspirin; Translations: [HALF-WAY CURRENT USE OF ASPIRIN] Onset: 2 Episodic [...] Test Name Value Interpretation Reference Range Facility Reminderson 02-21-2025 Reminders Reminders From: Paulina Morales To: [facility] - Administrative; Sent: 11/22/2024 09:52:41 EST Show up: 01/28/2025 09:52:00 EST Subject: Ambulatory Reminder Due Date/Time: 03/09/2025 09:52:00 EDT Reminder/Recall Patient needs scheduled with [facility] for a 4 month F/U, he schedule is not built yet. Due back in February 2025 LVM Pt is scheduled for March 23, 2025 @8:00am w/ [facility] in [place]. Normal [facility] ALL CBC WITH AUTO DIFFon BASOPHILS ABSOLUTE AUTO 0 [facility] Basophils/100 WBC (Bld) 0.7 % 0.2 - 2.0 % [facility] Eosinophils/100 WBC (Bld) 2.9 % 0.9 - 7.0 % [facility] Erythrocyte distribution width (RBC) [Ratio] 12.6 % 11.0 - 15.0 % [facility] Hematocrit (Bld) [Volume fraction] 46.7 % 42.0 - 54.0 % [facility] Hemoglobin (Bld) [Mass/Vol] 15.5 g/dL 14.0 - 18.0 g/dL [facility] IMMATURE GRANULOCYTES ABS AUTO 0.01 [facility] Immature granulocytes/100 WBC (Bld) 0.2 % 0.0 - 0.5 % [facility] LYMPHOCYTES ABSOLUTE AUTO 1.6 [facility] Lymphocytes/100 WBC (Bld) 35 % 20.5 - 60.0 % [facility] MCH (RBC) [Entitic mass] 29.5 pg 25.9 - 34.0 pg [facility] MCHC (RBC) [Mass/Vol] 33.2 g/dL 29.9 - 35.2 g/dL [facility] MCV (RBC) [Entitic vol] 88.8 fL 80.0 - 94.0 fL [facility] MONOCYTES ABSOLUTE AUTO 0.4 [facility] Monocytes/100 WBC (Bld) 9.3 % 1.7 - 12.0 % [facility] NEUTROPHILS ABSOLUTE AUTO 2.3 [facility] Neutrophils/100 WBC (Bld) 51.9 % 43.0 - 75.0 % [facility] Platelet mean volume (Bld) [Entitic vol] 9.9 fL 9.5 - 13.5 fL [facility] EO # 0.1 [facility] PLT 219 [facility] RBC 5.26 [facility] WBC 4.5 [facility] Ambulatory Visit Summaryon 0 01-03-2025 Ambulatory Visit Summary Ambulatory Visit Summary GEORGE STYLES :1970 Visit Date:01/03/2025 Ambulatory Visit Instructions Your [...] What to do next Scheduled Follow-Up Appointments 2024 10:20 AM EDT With: JONATHAN Almodovar APRN, Steph X Where: [facility] [address] [place] [address]- You Need to Schedule the Following Appointments Follow Up with Scooby ADAME, JONATHAN, Steph X, FAM, URL When: Where: Medications What How Much When Instructions New doxycycline (doxycycline hyclate 100 mg Cap) 1 Capsules By Mouth 2 times a day Duration: 4 Weeks may substitute hyclate for monohydrate based on availability Pickup at [facility] Unchanged allopurinol (allopurinol 100 mg Tab) [...] physician if questions or concerns Pharmacy Information [facility]: [address] [place], [place] [phone] Allergies shellfish (Anaphylaxis) Problems Ongoing - Any [...] e-mail asking a (more content not included)... Normal [facility] Urology Office/Clinic Noteon 01-03-2025 Urology Office/Clinic Note [...] Pt understands and agrees with plan. Ordered: 54604 Measure Post Void residual urine and/or bladder capacity by US- non-imaging Urnls Dip Stick Auto w/o Microscopy POC 90249 3. Erectile dysfunction (N52.9: Male erectile dysfunction, unspecified) LINDEN (3) Started taking Cialis 10mg PRN at prior OV. Ordered: Urnls Dip Stick Auto w/o Microscopy POC 72839 4. Screening PSA (prostate specific antigen) (Z12.5: Encounter for screening for malignant neoplasm of prostate) PSA 09/15/22 - 0.79 08/29/24 - 0.85 Reviewed PSA w patient today. Ordered: Urnls Dip Stick Auto w/o Microscopy POC 36881 5. History of kidney transplant (Z94.0: Kidney transplant status) 08/29/24 - BUN 18, Cre 1.3, GFR 58 Pt had liver and kidney transplant in 2019 and follows yearly with [facility]. [1] Pt reports being on Bactrim 3x weeks for kidney transplant. Ordered: Urnls Dip Stick Auto w/o Microscopy POC 72877 Orders: doxycycline, 100 mg = 1 cap(s), Oral, BID, may substitute hyclate for monohydrate based on availability, X 4 week(s), # 56 cap(s), Refills(s) 0, Pharmacy: [facility], 170, cm, 01/03/25 11:03:00 EST, Height/Length Dosing, 90, kg, 01/03/25 11:03:00 E... Follow-up With When Contact Information JONATHAN Almodovar APRN, Steph X, FAM, URL Additional Instructions: Follow up FEBRUARY or sooner if needed Patient Education Benign Prostatic Hyperplasia I, Diana De La Vega, personally scribed for JONATHAN Martino APRN on 01/03/2025 11:26:59. . Documentation recorded by the aguilar De La Vega accurately reflects the services(s) I performed and decisions made by me. Authenticat (more content not included)... Normal [facility] Comment on above: Result Comment: Elec tronically Signed By: JONATHAN Almodovar APRN, [place] X\.br\Date and Time Signed: 01/03/25 11:33 EST\.br\Electronically Co-Signed [...] (Bld) 34.5 % 20.5 - 60.0 % [facility] MCH (RBC) [Entitic mass] 28.9 pg 25.9 - 34.0 pg [facility] MCHC (RBC) [Mass/Vol] 32.9 g/dL 29.9 - 35.2 g/dL [facility] MCV (RBC) [Entitic vol] 87.8 fL 80.0 - 94.0 fL [facility] MONOCYTES ABSOLUTE AUTO 0.4 [facility] Monocytes/100 WBC (Bld) 9.8 % 1.7 - 12.0 % [facility] NEUTROPHILS ABSOLUTE AUTO 2.2 [facility] Neutrophils/100 WBC (Bld) 51.9 % 43.0 - 75.0 % [facility] Platelet mean volume (Bld) [Entitic vol] 9.5 fL 9.5 - 13.5 fL [facility] EO # 0.1 [facility] PLT 203 [facility] TB RBC 5.33 [facility] WBC 4.2 [facility] Ambulatory Visit Summaryon 1 01-23-2024 Ambulatory [...] for choosing us for your care. Normal [facility] Urology Office/Clinic Noteon 11-22-2024 Urology [...] with voice recognition artificial intelligence software, specifically [employer], [employer] and or [employer]. Substitutions may have occurred due to the [...] -Follow-up 4 months per patient preference Ordered: [id number] Measure Post Void residual urine and/or bladder capacity by US- non-imaging Urnls Dip Stick Auto w/o Microscopy POC 78362 2. Erectile dysfunction (N52.9: Male erectile dysfunction, [...] transplant in 2020 and follows yearly with [facility]. [1] Orders: tadalafil, 10 mg = 1 tab(s), Oral, As Directed, take 1 tab at least 1 hr prior to intercourse, do not exceed 20 mg (2 tab) in 24 hrs, # 30 tab(s), Refills(s) 5, Pharmacy: [facility], 170, cm, 11/22/24 9:39:00 EST, Height/Length Dosing, 90, kg, 12... tamsulosin, 0.4 mg = 1 cap(s), Oral, BID, X 30 day(s), # 60 cap(s), Refills(s) 11, Pharmacy: [facility], 170, cm, 09/08/24 14:00:00 EDT, Height/Length Dosing, 90, kg, 09/08/24 14:00:00 EDT, Weight Dosing tamsulosin, 0.4 mg = 1 cap(s), Oral, BID, X 90 day(s), # 180 cap(s), Refills(s) 3, Pharmacy: [facility], 170, cm, 09/08/24 14:00:00 EDT, Height/Length [...] liver disease (more content not included)... Normal [facility] Comment on above: Result Comment: Elec tronically Signed By: JONATHAN Almodovar APRN, Steph Wilson\.br\Date and Time Signed: 11/22/24 09:58 EST ALL CBC WITH AUTO DIFFon BASOPHILS ABSOLUTE AUTO 0 [facility] Basophils/100 WBC (Bld) 0.7 % 0.2 - 2.0 % [facility] Eosinophils/100 WBC (Bld) 2.6 % 0.9 - 7.0 % [facility] Erythrocyte distribution width (RBC) [Ratio] 12.5 % 11.0 - 15.0 % [facility] Hematocrit (Bld) [Volume fraction] 47.5 % 42.0 - 54.0 % [facility] Hemoglobin (Bld) [Mass/Vol] 15.6 g/dL 14.0 - 18.0 g/dL [facility] IMMATURE GRANULOCYTES ABS AUTO 0 [facility] Immature granulocytes/100 WBC (Bld) 0 % 0.0 - 0.5 % [facility] LYMPHOCYTES ABSOLUTE AUTO 1.6 [facility] Lymphocytes/100 WBC (Bld) 36.3 % 20.5 - 60.0 % [facility] MCH (RBC) [Entitic mass] 28.6 pg 25.9 - 34.0 pg [facility] MCHC (RBC) [Mass/Vol] 32.8 g/dL 29.9 - 35.2 g/dL [facility] MCV (RBC) [Entitic vol] 87.2 fL 80.0 - 94.0 fL [facility] MONOCYTES ABSOLUTE AUTO 0.4 [facility] Monocytes/100 WBC (Bld) 9.8 % 1.7 - 12.0 % [facility] NEUTROPHILS ABSOLUTE AUTO 2.2 [facility] Neutrophils/100 WBC (Bld) 50.6 % 43.0 - 75.0 % [facility] Platelet mean volume (Bld) [Entitic vol] 9.5 fL 9.5 - 13.5 fL [facility] EO # 0.1 [facility] PLT 230 [facility] RBC 5.45 [facility] WBC 4.3 [facility] ALL CBC WITH AUTO DIFFon BASOPHILS ABSOLUTE AUTO 0 [facility] Basophils/100 WBC (Bld) 0.5 % 0.2 - 2.0 % [facility] Eosinophils/100 WBC (Bld) 2.6 % 0.9 - 7.0 % [facility] Erythrocyte distribution width (RBC) [Ratio] 12.2 % 11.0 - 15.0 % [facility] Hematocrit (Bld) [Volume fraction] 47.7 % 42.0 - 54.0 % [facility] Hemoglobin (Bld) [Mass/Vol] 15.7 g/dL 14.0 - 18.0 g/dL [facility] IMMATURE GRANULOCYTES ABS AUTO 0.01 [facility] Immature granulocytes/100 WBC (Bld) 0.2 % 0.0 - 0.5 % [facility] Interpretation and review of laboratory results Abnormal [facility] LYMPHOCYTES ABSOLUTE AUTO 1.5 [facility] Lymphocytes/100 WBC (Bld) 37 % 20.5 - 60.0 % [facility] MCH (RBC) [Entitic mass] 28.9 pg 25.9 - 34.0 pg [facility] MCHC (RBC) [Mass/Vol] 32.9 g/dL 29.9 - 35.2 g/dL [facility] MCV (RBC) [Entitic vol] 87.8 fL 80.0 - 94.0 fL [facility] MONOCYTES ABSOLUTE AUTO 0.3 [facility] Monocytes/100 WBC (Bld) 7.7 % 1.7 - 12.0 % [facility] NEUTROPHILS ABSOLUTE AUTO 2.2 [facility] Neutrophils/100 WBC (Bld) 52 % 43.0 - 75.0 % [facility] Platelet mean volume (Bld) [Entitic vol] 9.3 fL Low 9.5 - 13.5 [facility] PLT 211 [facility] RBC 5.43 [facility] WBC 4.2 [facility] ALL CBC WITH AUTO DIFFon BASOPHILS ABSOLUTE AUTO 0 [facility] Basophils/100 WBC (Bld) 1 % 0.2 - 2.0 % [facility] Eosinophils/100 WBC (Bld) 2.9 % 0.9 - 7.0 % [facility] Erythrocyte distribution width (RBC) [Ratio] 12.3 % 11.0 - 15.0 % [facility] Hematocrit (Bld) [Volume fraction] 49.9 % 42.0 - 54.0 % [facility] Hemoglobin (Bld) [Mass/Vol] 16.5 g/dL 14.0 - 18.0 g/dL [facility] IMMATURE GRANULOCYTES ABS AUTO 0.01 [facility] Immature granulocytes/100 WBC (Bld) 0.2 % 0.0 - 0.5 % [facility] LYMPHOCYTES ABSOLUTE AUTO 1.3 [facility] Lymphocytes/100 WBC (Bld) 30.6 % 20.5 - 60.0 % [facility] MCH (RBC) [Entitic mass] 29.2 pg 25.9 - 34.0 pg [facility] MCHC (RBC) [Mass/Vol] 33.1 g/dL 29.9 - 35.2 g/dL [facility] MCV (RBC) [Entitic vol] 88.3 fL 80.0 - 94.0 fL [facility] MONOCYTES ABSOLUTE AUTO 0.4 [facility] Monocytes/100 WBC (Bld) 8.8 % 1.7 - 12.0 % [facility] NEUTROPHILS ABSOLUTE AUTO 2.4 [facility] Neutrophils/100 WBC (Bld) 56.5 % 43.0 - 75.0 % [facility] Platelet mean volume (Bld) [Entitic vol] 9.9 fL 9.5 - 13.5 fL [facility] TBH EO # 0.1 [facility] PLT 245 [facility] TB RBC 5.65 [facility] WBC 4.2 [facility] ALL CBC WITH AUTO DIFFon BASOPHILS ABSOLUTE AUTO 0 [facility] Basophils/100 WBC (Bld) 0.6 % 0.2 - 2.0 % [facility] Eosinophils/100 WBC (Bld) 3.5 % 0.9 - 7.0 % [facility] Erythrocyte distribution width (RBC) [Ratio] 12.3 % 11.0 - 15.0 % [facility] Hematocrit (Bld) [Volume fraction] 47.1 % 42.0 - 54.0 % [facility] Hemoglobin (Bld) [Mass/Vol] 15.4 g/dL 14.0 - 18.0 g/dL [facility] IMMATURE GRANULOCYTES ABS AUTO 0.01 [facility] Immature granulocytes/100 WBC (Bld) 0.2 % 0.0 - 0.5 % [facility] LYMPHOCYTES ABSOLUTE AUTO 1.5 [facility] Lymphocytes/100 WBC (Bld) 31.7 % 20.5 - 60.0 % [facility] MCH (RBC) [Entitic mass] 28.9 pg 25.9 - 34.0 pg [facility] MCHC (RBC) [Mass/Vol] 32.7 g/dL 29.9 - 35.2 g/dL [facility] MCV (RBC) [Entitic vol] 88.4 fL 80.0 - 94.0 fL [facility] MONOCYTES ABSOLUTE AUTO 0.4 [facility] Monocytes/100 WBC (Bld) 8.6 % 1.7 - 12.0 % [facility] NEUTROPHILS ABSOLUTE AUTO 2.7 [facility] Neutrophils/100 WBC (Bld) 55.4 % 43.0 - 75.0 % [facility] Platelet mean volume (Bld) [Entitic vol] 9.7 fL 9.5 - 13.5 fL [facility] EO # 0.2 [facility] PLT 238 [facility] RBC 5.33 [facility] WBC 4.8 [facility] ALL CBC WITH AUTO DIFFon BASOPHILS ABSOLUTE AUTO 0 [facility] Basophils/100 WBC (Bld) 0.6 % 0.2 - 2.0 % [facility] Eosinophils/100 WBC (Bld) 3.2 % 0.9 - 7.0 % [facility] Erythrocyte distribution width (RBC) [Ratio] 12.4 % 11.0 - 15.0 % [facility] Hematocrit (Bld) [Volume fraction] 47 % 42.0 - 54.0 % [facility] Hemoglobin (Bld) [Mass/Vol] 15.8 g/dL 14.0 - 18.0 g/dL [facility] IMMATURE GRANULOCYTES ABS AUTO 0.01 [facility] Immature granulocytes/100 WBC (Bld) 0.2 % 0.0 - 0.5 % [facility] Interpretation and review of laboratory results Abnormal [facility] LYMPHOCYTES ABSOLUTE AUTO 1.1 Low [facility] Lymphocytes/100 WBC (Bld) 22.8 % 20.5 - 60.0 % [facility] MCH (RBC) [Entitic mass] 29.6 pg 25.9 - 34.0 pg [facility] MCHC (RBC) [Mass/Vol] 33.6 g/dL 29.9 - 35.2 g/dL [facility] MCV (RBC) [Entitic vol] 88 fL 80.0 - 94.0 fL [facility] MONOCYTES ABSOLUTE AUTO 0.4 [facility] Monocytes/100 WBC (Bld) 8 % 1.7 - 12.0 % [facility] NEUTROPHILS ABSOLUTE AUTO 3.3 [facility] Neutrophils/100 WBC (Bld) 65.2 % 43.0 - 75.0 % [facility] Platelet mean volume (Bld) [Entitic vol] 9.3 fL Low 9.5 - 13.5 fL [facility] EO # 0.2 [facility] PLT 222 [facility] RBC 5.34 [facility] WBC 5 [facility] ALL CBC WITH AUTO DIFFon BASOPHILS ABSOLUTE AUTO 0 [facility] Basophils/100 WBC (Bld) 0.6 % 0.2 - 2.0 % [facility] Eosinophils/100 WBC (Bld) 2.9 % 0.9 - 7.0 % [facility] Erythrocyte distribution width (RBC) [Ratio] 12.5 % 11.0 - 15.0 % [facility] Hematocrit (Bld) [Volume fraction] 47.1 % 42.0 - 54.0 % [facility] Hemoglobin (Bld) [Mass/Vol] 15.2 g/dL 14.0 - 18.0 g/dL [facility] IMMATURE GRANULOCYTES ABS AUTO 0.01 [facility] Immature granulocytes/100 WBC (Bld) 0.2 % 0.0 - 0.5 % [facility] Interpretation and review of laboratory results Abnormal [facility] LYMPHOCYTES ABSOLUTE AUTO 1.6 [facility] Lymphocytes/100 WBC (Bld) 32.7 % 20.5 - 60.0 % [facility] MCH (RBC) [Entitic mass] 28.5 pg 25.9 - 34.0 pg [facility] MCHC (RBC) [Mass/Vol] 32.3 g/dL 29.9 - 35.2 g/dL [facility] MCV (RBC) [Entitic vol] 88.4 fL 80.0 - 94.0 fL [facility] MONOCYTES ABSOLUTE AUTO 0.4 [facility] Monocytes/100 WBC (Bld) 8.5 % 1.7 - 12.0 % [facility] NEUTROPHILS ABSOLUTE AUTO 2.6 [facility] Neutrophils/100 WBC (Bld) 55.1 % 43.0 - 75.0 % [facility] Platelet mean volume (Bld) [Entitic vol] 9.3 fL Low 9.5 - 13.5 fL [facility] EO # 0.1 [facility] PLT 225 [facility] RBC 5.33 [facility] WBC 4.8 [facility] ALL CBC WITH AUTO DIFFon BASOPHILS ABSOLUTE AUTO 0.0 [facility] Basophils/100 WBC (Bld) 0.6 % 0.2 - 2.0 % [facility] Eosinophils/100 WBC (Bld) 3.2 % 0.9 - 7.0 % [facility] Erythrocyte distribution width (RBC) [Ratio] 12.4 % 11.0 - 15.0 % [facility] Hematocrit (Bld) [Volume fraction] 48.1 % 42.0 - 54.0 % [facility] Hemoglobin (Bld) [Mass/Vol] 15.8 g/dL 14.0 - 18.0 g/dL [facility] IMMATURE GRANULOCYTES ABS AUTO 0.01 [facility] Immature granulocytes/100 WBC (Bld) 0.2 % 0.0 - 0.5 % [facility] LYMPHOCYTES ABSOLUTE AUTO 1.4 [facility] Lymphocytes/100 WBC (Bld) 28.5 % 20.5 - 60.0 % [facility] MCH (RBC) [Entitic mass] 28.8 pg 25.9 - 34.0 pg [facility] MCHC (RBC) [Mass/Vol] 32.8 g/dL 29.9 - 35.2 g/dL [facility] MCV (RBC) [Entitic vol] 87.8 fL 80.0 - 94.0 fL [facility] MONOCYTES ABSOLUTE AUTO 0.4 [facility] Monocytes/100 WBC (Bld) 8.6 % 1.7 - 12.0 % [facility] NEUTROPHILS ABSOLUTE AUTO 2.9 [facility] Neutrophils/100 WBC (Bld) 58.9 % 43.0 - 75.0 % [facility] Platelet mean volume (Bld) [Entitic vol] 9.8 fL 9.5 - 13.5 fL [facility] EO # 0.2 [facility] PLT 240 [facility] RBC 5.48 [facility] WBC 5.0 [facility] ALL CBC WITH AUTO DIFFon BASOPHILS ABSOLUTE AUTO 0.0 [facility] Basophils/100 WBC (Bld) 0.7 % 0.2 - 2.0 % [facility] Eosinophils/100 WBC (Bld) 2.7 % 0.9 - 7.0 % [facility] Erythrocyte distribution width (RBC) [Ratio] 12.4 % 11.0 - 15.0 % [facility] Hematocrit (Bld) [Volume fraction] 47.4 % 42.0 - 54.0 % [facility] Hemoglobin (Bld) [Mass/Vol] 15.6 g/dL 14.0 - 18.0 g/dL [facility] IMMATURE GRANULOCYTES ABS AUTO 0.01 [facility] Immature granulocytes/100 WBC (Bld) 0.2 % 0.0 - 0.5 % [facility] LYMPHOCYTES ABSOLUTE AUTO 1.3 [facility] Lymphocytes/100 WBC (Bld) 29.6 % 20.5 - 60.0 % [facility] MCH (RBC) [Entitic mass] 28.8 pg 25.9 - 34.0 pg [facility] MCHC (RBC) [Mass/Vol] 32.9 g/dL 29.9 - 35.2 g/dL [facility] MCV (RBC) [Entitic vol] 87.5 fL 80.0 - 94.0 fL [facility] MONOCYTES ABSOLUTE AUTO 0.4 [facility] Monocytes/100 WBC (Bld) 8.1 % 1.7 - 12.0 % [facility] NEUTROPHILS ABSOLUTE AUTO 2.6 [facility] Neutrophils/100 WBC (Bld) 58.7 % 43.0 - 75.0 % [facility] Platelet mean volume (Bld) [Entitic vol] 9.9 fL 9.5 - 13.5 fL [facility] EO # 0.1 [facility] PLT 240 [facility] RBC 5.42 [facility] WBC 4.5 [facility] URINE T PROTEIN CREAT RA TIOon 08-15-2024 CREATININE URINE RANDOM 123.63 mg/dL 20.00 - 300.00 mg/dL [facility] Interpretation and review of laboratory results Abnormal [facility] Protein (U) [Mass/Vol] 14.4 mg/dL High NINF - 11.9 mg/dL [facility] PROTEIN CREATININE RATIO URINE 0.12 [facility] ALL CBC WITH AUTO DIFFon BASOPHILS ABSOLUTE AUTO 0.0 [facility] Basophils/100 WBC (Bld) 0.8 % 0.2 - 2.0 % [facility] Eosinophils/100 WBC (Bld) 1.8 % 0.9 - 7.0 % [facility] Erythrocyte distribution width (RBC) [Ratio] 12.2 % 11.0 - 15.0 % [facility] Hematocrit (Bld) [Volume fraction] 47.2 % 42.0 - 54.0 % [facility] Hemoglobin (Bld) [Mass/Vol] 15.7 g/dL 14.0 - 18.0 g/dL [facility] IMMATURE GRANULOCYTES ABS AUTO 0.01 [facility] Immature granulocytes/100 WBC (Bld) 0.2 % 0.0 - 0.5 % [facility] LYMPHOCYTES ABSOLUTE AUTO 1.5 [facility] Lymphocytes/100 WBC (Bld) 29.9 % 20.5 - 60.0 % [facility] MCH (RBC) [Entitic mass] 29.1 pg 25.9 - 34.0 pg [facility] MCHC (RBC) [Mass/Vol] 33.3 g/dL 29.9 - 35.2 g/dL [facility] MCV (RBC) [Entitic vol] 87.4 fL 80.0 - 94.0 fL [facility] MONOCYTES ABSOLUTE AUTO 0.4 [facility] Monocytes/100 WBC (Bld) 8.8 % 1.7 - 12.0 % [facility] NEUTROPHILS ABSOLUTE AUTO 2.9 [facility] Neutrophils/100 WBC (Bld) 58.5 % 43.0 - 75.0 % [facility] Platelet mean volume (Bld) [Entitic vol] 10.0 fL 9.5 - 13.5 fL [facility] TBH EO # 0.1 [facility] PLT 238 [facility] RBC 5.40 [facility] TB WBC 4.9 [facility] URINE T PROTEIN CREAT RA TIOon 08-02-2024 CREATININE URINE RANDOM 134.02 mg/dL 20.00 - 300.00 mg/dL [facility] Interpretation and review of laboratory results Abnormal [facility] Protein (U) [Mass/Vol] 13.8 mg/dL High NINF - 11.9 mg/dL [facility] PROTEIN CREATININE RATIO URINE 0.10 [facility] 36on 06-01-2024 36 Regarding echo perfo rmed on 05/18/2024: MD Cinda Batres MA Please tell him the echo was ok and showed a small residual fluid around the heart. This is significant improvement from before. Follow up as planned. Patient informed and he verbalized understanding. [facility] Office Visiton 05-13-2024 Follow-up visit [id number] George Styles 1970 M Date Provider Department Center 05/13/2024 MIGUEL PARADA [facility] Family History Problem Relation Age of Onset Coronary artery disease Mother Coronary artery disease Father Family Status - Relation Status Age at Mother Father Level of Service:50329 [place] OFFICE/OUTPATIENT ESTABLISHED LOW MDM 20 MIN Reason for Visit and Comments: Follow-up [427515] - Yearly follow up Normal [facility] B-TYPE NATRIURETIC PEPTIDE ( BRAIN)on 02-26-2024 Interpretation and review of laboratory results Normal [facility] Natriuretic peptide B (Bld) [Mass/Vol] 72 pg/mL 0 - 100 pg/mL [facility] CHEM 6 (LYTES, BUN CREA)on 0 02-26-2024 Anion gap [Moles/Vol] 13 mmol/L 7 - 17 mmol/L [facility] Chloride [Moles/Vol] 107 mmol/L 98 - 10 8 mmol/L [facility] CO2 [Moles/Vol] 25 mmol/L 21 - 31 mmol/L [facility] Creatinine [Mass/Vol] 1.23 mg/dL 0.70 - 1.30 mg/dL [facility] eGFR, CKD-EPI, Male 70 - PINF [facility] Comment on above: Reported eGFR is bas ed on the CKD-EPI 2020 equation using creatinine, age, and sex. Potassium [Moles/Vol] 4.2 mmol/L 3.5 - 5.0 mmol/L [facility] Sodium [Moles/Vol] 141 mmol/L 135 - 145 mmol/L [facility] Urea nitrogen [Mass/Vol] 17 mg/dL 7 - 25 mg/dL [facility] Urea nitrogen/Creatinine [Mass ratio] 14 mg/mg [facility] CBC,PLATELETSon 01-23-2024 Erythrocyte distribution width (RBC) [Ratio] 14.2 % 10.9 - 14.3 % [facility] Hematocrit (Bld) [Volume fraction] 37.0 % Low 39.6 - 48.8 % [facility] Hemoglobin (Bld) [Mass/Vol] 12.0 g/dL Low 13.4 - 16.8 g/dL [facility] Interpretation and review of laboratory results Abnormal [facility] MCH (RBC) [Entitic mass] 28.6 pg 26.1 - 33.3 pg [facility] MCHC (RBC) [Mass/Vol] 32.4 g/dL 31.9 - 36.5 g/dL [facility] MCV (RBC) [Entitic vol] 88.1 fL 79.0 - 94.5 fL [facility] Platelet mean volume (Bld) [Entitic vol] 10.4 fL 8.7 - 12.3 fL [facility] Platelets (Bld) [#/Vol] 170 10*3/uL 146 - 337 K/uL [facility] RBC (Bld) [#/Vol] 4.20 10*6/uL Low [facility] WBC (Bld) [#/Vol] 3.70 10*3/uL Low 3.73 - 10. 10 K/uL [facility] CHEM 7 (LYTES,BUN,CREA,GLUC) on 01-23-2024 Anion gap [Moles/Vol] 14 mmol/L 7 - 17 mmol/L [facility] Chloride [Moles/Vol] 105 mmol/L 98 - 10 8 mmol/L [facility] CO2 [Moles/Vol] 25 mmol/L 21 - 31 mmol/L [facility] Creatinine [Mass/Vol] 1.32 mg/dL High 0.70 - 1.30 mg/dL [facility] eGFR, CKD-EPI, Male 65 - PINF [facility] Comment on above: Reported eGFR is bas ed on the CKD-EPI 2020 equation using creatinine, age, and sex. Glucose [Mass/Vol] 94 mg/dL 70 - 99 mg/dL [facility] Osmolality Calc [Osmolality] 296 [facility] Potassium [Moles/Vol] 3.8 mmol/L 3.5 - 5.0 mmol/L [facility] Sodium [Moles/Vol] 140 mmol/L 135 - 145 mmol/L [facility] Urea nitrogen [Mass/Vol] 23 mg/dL 7 - 25 mg/dL [facility] Urea nitrogen/Creatinine [Mass ratio] 17 mg/mg [facility] GLUCOSE POCon 01-23-2024 Glucose [Mass/Vol] 88 mg/dL 70 - 99 mg/dL [facility] POC Sample Type CAPBL [facility] Test performed at ad dress of the patient encounter. [facility] Glucose [Mass/Vol] 191 mg/dL High 70 - 99 mg/dL [facility] Interpretation and review of laboratory results Abnormal [facility] POC Sample Type CAPBL [facility] Test performed at ad dress of the patient encounter. [facility] HEPATIC FUNCTION PANELon Albumin [Mass/Vol] 3.9 g/dL 3.5 - 5.0 g/dL [facility] ALP [Catalytic activity/Vol] 83 U/L 32 - 126 U/L [facility] ALT [Catalytic activity/Vol] 9 U/L Low 10 - 52 U/L [facility] AST [Catalytic activity/Vol] 17 U/L 10 - 39 U/L [facility] Bilirubin [Mass/Vol] 1.6 mg/dL High NINF - 1.5 mg/dL [facility] Bilirubin.direct [Mass/Vol] 0.4 mg/dL High NINF - 0.3 mg/dL [facility] Protein [Mass/Vol] 6.6 g/dL 6.4 - 8.3 g/dL [facility] ITRACONAZOLE LEVELon 024 Hydroxyitraconazole [Mass/Vol] 7.6 mcg/mL [facility] Comment on above: REFERENCE [...] Performed by: [facility] [place] [address] Erecting Engineer: Rosendo Bose M.D. Ph.D.; CLIA# [id number] Itraconazole [Mass/Vol] 6.0 mcg/mL [facility] Comment on above: REFERENCE VALUE >0.5 (localized infection), >1.0 (systemic infection) [facility] MAGNESIUMon 01-23-2024 Interpretation and review of laboratory results Normal [facility] Magnesium [Mass/Vol] 1.8 mg/dL 1.6 - 2 .6 mg/dL [facility] No Panel Informationon 01-23 Interpretation and review of laboratory results Abnormal [facility] TACROLIMUS LEVEL, TROUGH (VT E DRUG LEVEL)on 01-23-2024 Interpretation and review of laboratory results Normal [facility] Tacrolimus (Bld) [Mass/Vol] 7.0 ng/mL Bone Marrow Transplant: 4.0-12.0, Therapeutic: 5.0-15.0 [facility] Method performed is a chemiluminescent microparticle immunoasssay on the [employer] i2000. The range is based on experience at [facility] and users should be aware that target concentrations vary widely depending on concomitant therapy, time post-transplant, and desired degree of immunosuppression. [facility] CARDIAC RHYTHM (SCANNED)on 0 01-22-2024 [facility] CBC,PLATELETSon 01-22-2024 Erythrocyte distribution width (RBC) [Ratio] 14.1 % 10.9 - 14.3 % [facility] Hematocrit (Bld) [Volume fraction] 41.5 % 39.6 - 48.8 % [facility] Hemoglobin (Bld) [Mass/Vol] 13.3 g/dL Low 13.4 - 16.8 g/dL [facility] Interpretation and review of laboratory results Abnormal [facility] MCH (RBC) [Entitic mass] 27.8 pg 26.1 - 33.3 pg [facility] MCHC (RBC) [Mass/Vol] 32.0 g/dL 31.9 - 36.5 g/dL [facility] MCV (RBC) [Entitic vol] 86.8 fL 79.0 - 94.5 fL [facility] Platelet mean volume (Bld) [Entitic vol] 10.5 fL 8.7 - 12.3 fL [facility] Platelets (Bld) [#/Vol] 186 10*3/uL 146 - 337 K/uL [facility] RBC (Bld) [#/Vol] 4.78 10*6/uL [facility] WBC (Bld) [#/Vol] 3.74 10*3/uL 3.73 - 10. 10 K/uL [facility] CHEM 7 (LYTES,BUN,CREA,GLUC) on 01-22-2024 Anion gap [Moles/Vol] 13 mmol/L 7 - 17 mmol/L [facility] Chloride [Moles/Vol] 109 mmol/L High 98 - 10 8 mmol/L [facility] CO2 [Moles/Vol] 23 mmol/L 21 - 31 mmol/L [facility] Creatinine [Mass/Vol] 1.10 mg/dL 0.70 - 1.30 mg/dL [facility] eGFR, CKD-EPI, Male 81 - PINF [facility] Comment on above: Reported eGFR is bas ed on the CKD-EPI 2020 equation using creatinine, age, and sex. Glucose [Mass/Vol] 84 mg/dL 70 - 99 mg/dL [facility] Interpretation and review of laboratory results Abnormal [facility] Osmolality Calc [Osmolality] 295 [facility] Potassium [Moles/Vol] 4.0 mmol/L 3.5 - 5.0 mmol/L [facility] Sodium [Moles/Vol] 141 mmol/L 135 - 145 mmol/L [facility] Urea nitrogen [Mass/Vol] 16 mg/dL 7 - 25 mg/dL [facility] Urea nitrogen/Creatinine [Mass ratio] 15 mg/mg [facility] MAGNESIUMon 01-22-2024 Interpretation and review of laboratory results Normal [facility] Magnesium [Mass/Vol] 2.0 mg/dL 1.6 - 2 .6 mg/dL [facility] No Panel Informationon 01-22 [facility] PT,INR,PTTon 01-22-2024 aPTT Coag (PPP) [Time] 29.2 s [facility] INR Coag (Bld) [Relative time] 1.1 {INR} 0.9 - 1.1 [facility] Interpretation and review of laboratory results Abnormal [facility] PT Coag (PPP) [Time] 14.3 s High [facility] TACROLIMUS LEVEL, TROUGH (VT E DRUG LEVEL)Ordered By: Sheree Jensen on 01-22-2024 Interpretation and review of laboratory results Normal [facility] Tacrolimus (Bld) [Mass/Vol] 7.9 ng/mL Bone Marrow Transplant: 4.0-12.0, Therapeutic: 5.0-15.0 [facility] Method performed is a chemiluminescent microparticle immunoasssay on the [employer] i2000. The range is based on experience at [facility] and users should be aware that target concentrations vary widely depending on concomitant therapy, time post-transplant, and desired degree of immunosuppression. [facility] TYPE AND SCREENon 01-22-2024 ABO/RH(D) TYPE Positive [facility] US Unspecified body regionOr dered By: Unassigned Pacs on 01-22-2024 [facility] Work Phone: Unspecified body regionon 01-22-2024 Radiology Study observation (narrative) [facility] CBC,PLATELETSon 01-21-2024 Erythrocyte distribution width (RBC) [Ratio] 14.0 % 10.9 - 14.3 % [facility] Hematocrit (Bld) [Volume fraction] 39.4 % Low 39.6 - 48.8 % [facility] Hemoglobin (Bld) [Mass/Vol] 12.7 g/dL Low 13.4 - 16.8 g/dL [facility] Interpretation and review of laboratory results Abnormal [facility] MCH (RBC) [Entitic mass] 28.0 pg 26.1 - 33.3 pg [facility] MCHC (RBC) [Mass/Vol] 32.2 g/dL 31.9 - 36.5 g/dL [facility] MCV (RBC) [Entitic vol] 87.0 fL 79.0 - 94.5 fL [facility] Platelet mean volume (Bld) [Entitic vol] 10.2 fL 8.7 - 12.3 fL [facility] Platelets (Bld) [#/Vol] 157 10*3/uL 146 - 337 K/uL [facility] RBC (Bld) [#/Vol] 4.53 10*6/uL [facility] WBC (Bld) [#/Vol] 3.42 10*3/uL Low 3.73 - 10. 10 K/uL [facility] CHEM 7 (LYTES,BUN,CREA,GLUC) on 01-21-2024 Anion gap [Moles/Vol] 12 mmol/L 7 - 17 mmol/L [facility] Chloride [Moles/Vol] 107 mmol/L 98 - 10 8 mmol/L [facility] CO2 [Moles/Vol] 26 mmol/L 21 - 31 mmol/L [facility] Creatinine [Mass/Vol] 1.11 mg/dL 0.70 - 1.30 mg/dL [facility] eGFR, CKD-EPI, Male 80 - PINF [facility] Comment on above: Reported eGFR is bas ed on the CKD-EPI 2020 equation using creatinine, age, and sex. Glucose [Mass/Vol] 93 mg/dL 70 - 99 mg/dL [facility] Osmolality Calc [Osmolality] 295 [facility] Potassium [Moles/Vol] 3.9 mmol/L 3.5 - 5.0 mmol/L [facility] Sodium [Moles/Vol] 141 mmol/L 135 - 145 mmol/L [facility] Urea nitrogen [Mass/Vol] 15 mg/dL 7 - 25 mg/dL [facility] Urea nitrogen/Creatinine [Mass ratio] 14 mg/mg [facility] Cardiac catheterization stud yOrdered By: Kelvin Donohue on 01-21-2024 Body surface area Derived from formula 2.08 m2 [facility] Work Phone: [facility] Work Phone: Cardiac catheterization [...] with fistula occlusion Kelvin Donohue MD, MPH Inventory Auditor of Internal Medicine. Section of Advanced Heart Failure and Transplantation Division of Cardiovascular Diseases [facility] [email or web address] MAGNESIUMon 01-21-2024 Interpretation and review of laboratory results Abnormal [facility] Magnesium [Mass/Vol] 1.5 mg/dL Low 1.6 - 2 .6 mg/dL [facility] No Panel Informationon 01-21 [facility] TACROLIMUS LEVEL, TROUGH (VT E DRUG LEVEL)on 01-21-2024 Interpretation and review of laboratory results Normal [facility] Tacrolimus (Bld) [Mass/Vol] 7.2 ng/mL Bone Marrow Transplant: 4.0-12.0, Therapeutic: 5.0-15.0 [facility] Method performed is a chemiluminescent microparticle immunoasssay on the [employer] i2000. The range is based on experience at [facility] and users should be aware that target concentrations vary widely depending on concomitant therapy, time post-transplant, and desired degree of immunosuppression. [facility] CBC,PLATELETSon 01-20-2024 Erythrocyte distribution width (RBC) [Ratio] 13.8 % 10.9 - 14.3 % [facility] Hematocrit (Bld) [Volume fraction] 38.9 % Low 39.6 - 48.8 % [facility] Hemoglobin (Bld) [Mass/Vol] 12.5 g/dL Low 13.4 - 16.8 g/dL [facility] Interpretation and review of laboratory results Abnormal [facility] MCH (RBC) [Entitic mass] 28.0 pg 26.1 - 33.3 pg [facility] MCHC (RBC) [Mass/Vol] 32.1 g/dL 31.9 - 36.5 g/dL [facility] MCV (RBC) [Entitic vol] 87.2 fL 79.0 - 94.5 fL [facility] Platelet mean volume (Bld) [Entitic vol] 10.2 fL 8.7 - 12.3 fL [facility] Platelets (Bld) [#/Vol] 166 10*3/uL 146 - 337 K/uL [facility] RBC (Bld) [#/Vol] 4.46 10*6/uL [facility] WBC (Bld) [#/Vol] 3.79 10*3/uL 3.73 - 10. 10 K/uL [facility] CHEM 7 (LYTES,BUN,CREA,GLUC) on 01-20-2024 Anion gap [Moles/Vol] 12 mmol/L 7 - 17 mmol/L [facility] Chloride [Moles/Vol] 105 mmol/L 98 - 10 8 mmol/L [facility] CO2 [Moles/Vol] 28 mmol/L 21 - 31 mmol/L [facility] Creatinine [Mass/Vol] 1.12 mg/dL 0.70 - 1.30 mg/dL [facility] eGFR, CKD-EPI, Male 79 - PINF [facility] Comment on above: Reported eGFR is bas ed on the CKD-EPI 2020 equation using creatinine, age, and sex. Glucose [Mass/Vol] 88 mg/dL 70 - 99 mg/dL [facility] Osmolality Calc [Osmolality] 294 [facility] Potassium [Moles/Vol] 3.8 mmol/L 3.5 - 5.0 mmol/L [facility] Sodium [Moles/Vol] 141 mmol/L 135 - 145 mmol/L [facility] Urea nitrogen [Mass/Vol] 15 mg/dL 7 - 25 mg/dL [facility] Urea nitrogen/Creatinine [Mass ratio] 13 mg/mg [facility] Cardiac catheterization stud yon 01-20-2024 [facility] Radiology Study observation (narrative) [facility] Radiology Study observation (narrative) [facility] EBV BY PCR, QUANTITATIVE,BLO ODOrdered By: Charlotte Jensen on 01-20-2024 EBV DNA ESTELITA+probe (Unsp spec) [#/Vol] NINF [facility] Interpretation and review of laboratory results Normal [facility] This test was perfor med using a real time PCR assay. The dynamic range for this assay is 1000-5,000,000 IU/mL. A result <1000 IU/mL does not rule out the presence of EBV DNA in quantities below the sensitivity of this assay. This test was developed and its performance characteristics determined by [facility]. It has not been cleared or approved by the FDA. The laboratory is regulated under CLIA as qualified to perform high-complexity testing. This test is used for clinical purposes. It should not be regarded as investigational or for research. [facility] HEPATIC FUNCTION PANELon Albumin [Mass/Vol] 3.7 g/dL 3.5 - 5.0 g/dL [facility] ALP [Catalytic activity/Vol] 73 U/L 32 - 126 U/L [facility] ALT [Catalytic activity/Vol] 12 U/L 10 - 52 U/L [facility] AST [Catalytic activity/Vol] 19 U/L 10 - 39 U/L [facility] Bilirubin [Mass/Vol] 2.1 mg/dL High NINF - 1.5 mg/dL [facility] Bilirubin.direct [Mass/Vol] 0.5 mg/dL High NINF - 0.3 mg/dL [facility] Interpretation and review of laboratory results Abnormal [facility] Protein [Mass/Vol] 6.1 g/dL Low 6.4 - 8.3 g/dL [facility] MAGNESIUMon 01-20-2024 Interpretation and review of laboratory results Normal [facility] Magnesium [Mass/Vol] 1.6 mg/dL 1.6 - 2 .6 mg/dL [facility] No Panel Informationon 01-20 [facility] POCT CO-OXIMETRYon Hemoglobin (Bld) [Mass/Vol] 12.8 g/dL Low 13.4 - 16.8 g/dL [facility] Interpretation and review of laboratory results Abnormal [facility] Oxyhemoglobin 69 % Low 94 - 98 % [facility] Ordering physician notified. Test performed at address of the patient encounter. [facility] Hemoglobin (Bld) [Mass/Vol] 13.3 g/dL Low 13.4 - 16.8 g/dL [facility] Interpretation and review of laboratory results Abnormal [facility] Oxyhemoglobin 69 % Low 94 - 98 % [facility] Ordering physician notified. Test performed at address of the patient encounter. [facility] PT,INR,PTTon 01-20-2024 aPTT Coag (PPP) [Time] 30.6 s [facility] INR Coag (Bld) [Relative time] 1.2 {INR} High 0.9 - 1.1 [facility] Interpretation and review of laboratory results Abnormal [facility] PT Coag (PPP) [Time] 15.5 s High [facility] TACROLIMUS LEVEL, TROUGH (VT E DRUG LEVEL)Ordered By: Yanira Marcum on 01-20-2024 Interpretation and review of laboratory results Normal [facility] Tacrolimus (Bld) [Mass/Vol] 7.7 ng/mL Bone Marrow Transplant: 4.0-12.0, Therapeutic: 5.0-15.0 [facility] Method performed is a chemiluminescent microparticle immunoasssay on the [employer] i2000. The range is based on experience at [facility] and users should be aware that target concentrations vary widely depending on concomitant therapy, time post-transplant, and desired degree of immunosuppression. [facility] CBC,PLATELETSon 01-19-2024 Erythrocyte distribution width (RBC) [Ratio] 13.9 % 10.9 - 14.3 % [facility] Hematocrit (Bld) [Volume fraction] 37.5 % Low 39.6 - 48.8 % [facility] Hemoglobin (Bld) [Mass/Vol] 12.1 g/dL Low 13.4 - 16.8 g/dL [facility] Interpretation and review of laboratory results Abnormal [facility] MCH (RBC) [Entitic mass] 28.3 pg 26.1 - 33.3 pg [facility] MCHC (RBC) [Mass/Vol] 32.3 g/dL 31.9 - 36.5 g/dL [facility] MCV (RBC) [Entitic vol] 87.8 fL 79.0 - 94.5 fL [facility] Platelet mean volume (Bld) [Entitic vol] 10.4 fL 8.7 - 12.3 fL [facility] Platelets (Bld) [#/Vol] 163 10*3/uL 146 - 337 K/uL [facility] RBC (Bld) [#/Vol] 4.27 10*6/uL Low [facility] WBC (Bld) [#/Vol] 3.69 10*3/uL Low 3.73 - 10. 10 K/uL [facility] CHEM 7 (LYTES,BUN,CREA,GLUC) on 01-19-2024 Anion gap [Moles/Vol] 14 mmol/L 7 - 17 mmol/L [facility] Chloride [Moles/Vol] 106 mmol/L 98 - 10 8 mmol/L [facility] CO2 [Moles/Vol] 24 mmol/L 21 - 31 mmol/L [facility] Creatinine [Mass/Vol] 1.13 mg/dL 0.70 - 1.30 mg/dL [facility] eGFR, CKD-EPI, Male 78 - PINF [facility] Comment on above: Reported eGFR is bas ed on the CKD-EPI 2020 equation using creatinine, age, and sex. Glucose [Mass/Vol] 86 mg/dL 70 - 99 mg/dL [facility] Osmolality Calc [Osmolality] 293 [facility] Potassium [Moles/Vol] 3.8 mmol/L 3.5 - 5.0 mmol/L [facility] Sodium [Moles/Vol] 140 mmol/L 135 - 145 mmol/L [facility] Urea nitrogen [Mass/Vol] 16 mg/dL 7 - 25 mg/dL [facility] Urea nitrogen/Creatinine [Mass ratio] 14 mg/mg [facility] HISTOPLASMA AND BLASTOMYCES ANTIGEN, ENZYME IMMUNOASSAY, SERMon 01-19-2024 Histoplasma/Blastomy [place]ia Ag Result Not detected Not Detected [facility] Comment on above: No antigen from Hist oplasma or Blastomyces detected. False negative results may occur depending on extent of disease, and/or site of infection. Repeat testing on a new specimen if clinically indicated. Histoplasma/Blastomy [place]ia Ag Value Not detected ng/mL [facility] Comment on above: ADDITIONAL INFORMATION This test was developed and its performance characteristics determined by [facility] in a manner consistent with CLIA requirements. This test has not been cleared or approved by the U.S. Food and Drug Administration. Test Performed by: [facility] [address] [place] [address] Erecting Engineer: Rosendo Bose M.D. Ph.D.; CLIA# [id number] [facility] MAGNESIUMon 01-19-2024 Interpretation and review of laboratory results Normal [facility] Magnesium [Mass/Vol] 1.8 mg/dL 1.6 - 2 .6 mg/dL [facility] No Panel Informationon 01-19 [facility] TACROLIMUS LEVEL, TROUGH (VT E DRUG LEVEL)Ordered By: Raymundo Mehta on 01-19-2024 Interpretation and review of laboratory results Normal [facility] Tacrolimus (Bld) [Mass/Vol] 6.8 ng/mL Bone Marrow Transplant: 4.0-12.0, Therapeutic: 5.0-15.0 [facility] Method performed is a chemiluminescent microparticle immunoasssay on the [employer] i2000. The range is based on experience at [facility] and users should be aware that target concentrations vary widely depending on concomitant therapy, time post-transplant, and desired degree of immunosuppression. [facility] US AV fistulaOrdered By: Diana Reyes on 01-19-2024 [facility] Work Phone: US AV fistulaon 01-19-2024 Radiology Study observation (narrative) [facility] AFP TUMOR MARKEROrdered By: Francisca Alaniz on 02-19-2024 AFP.tumor marker [Mass/Vol] ng/mL NINF - 8.1 ng/mL [facility] Comment on above: This test was perfor med on the [employer] Immunoassay platform by [employer] which is a two-site sandwich chemiluminescent immunoassay. It is important to note that assays using different manufacturers and/or methods may not be comparable. Interpretation and review of laboratory results Normal [facility] CBC,PLATELETSon 01-18-2024 Erythrocyte distribution width (RBC) [Ratio] 13.9 % 10.9 - 14.3 % [facility] Hematocrit (Bld) [Volume fraction] 38.4 % Low 39.6 - 48.8 % [facility] Hemoglobin (Bld) [Mass/Vol] 12.1 g/dL Low 13.4 - 16.8 g/dL [facility] Interpretation and review of laboratory results Abnormal [facility] MCH (RBC) [Entitic mass] 27.8 pg 26.1 - 33.3 pg [facility] MCHC (RBC) [Mass/Vol] 31.5 g/dL Low 31.9 - 36.5 g/dL [facility] MCV (RBC) [Entitic vol] 88.3 fL 79.0 - 94.5 fL [facility] Platelet mean volume (Bld) [Entitic vol] 10.4 fL 8.7 - 12.3 fL [facility] Platelets (Bld) [#/Vol] 183 10*3/uL 146 - 337 K/uL [facility] RBC (Bld) [#/Vol] 4.35 10*6/uL Low [facility] WBC (Bld) [#/Vol] 3.66 10*3/uL Low 3.73 - 10. 10 K/uL [facility] CHEM 7 (LYTES,BUN,CREA,GLUC) on 01-18-2024 Anion gap [Moles/Vol] 11 mmol/L 7 - 17 mmol/L [facility] Chloride [Moles/Vol] 108 mmol/L 98 - 10 8 mmol/L [facility] CO2 [Moles/Vol] 26 mmol/L 21 - 31 mmol/L [facility] Creatinine [Mass/Vol] 1.00 mg/dL 0.70 - 1.30 mg/dL [facility] eGFR, CKD-EPI, Male - PINF [facility] Comment on above: Reported eGFR is bas ed on the CKD-EPI 2020 equation using creatinine, age, and sex. Glucose [Mass/Vol] 89 mg/dL 70 - 99 mg/dL [facility] Osmolality Calc [Osmolality] [facility] Potassium [Moles/Vol] 3.9 mmol/L 3.5 - 5.0 mmol/L [facility] Sodium [Moles/Vol] 141 mmol/L 135 - 145 mmol/L [facility] Urea nitrogen [Mass/Vol] 16 mg/dL 7 - 25 mg/[facility] Urea nitrogen/Creatinine [Mass ratio] 16 mg/mg [facility] Cardiac echo study Procedure Ordered By: Gian Carlos on 01-18-2024 Ao ASC index 1.63 cm/m2 [facility] Work Phone: Ao peak meliton 1.46 m/s [facility] Work Phone: Ao SOV index 1.56 cm/m2 [facility] Work Phone: Ao STJ index 1.25 cm/m2 [facility] Work Phone: Ao VTI 35.74 cm [facility] Work Phone: Ascending [facility]: AV LVOT peak gradient 4 mmHg [facility] Work Phone: AV mean gradient 5 mmHg [facility]: AV peak gradient 9 mmHG [facility] Work Phone: AV valve area 3.09 cm2 [facility] Work Phone: AV Velocity Ratio 0.73 [facility] Work Phone: VEGA (continuity Vmax) 3.01 cm2 [facility] Work Phone: VEGA (continuity VTI) 3.09 cm2 [facility] Work Phone: [phone] VEGA index (continuity Vmax) 1.45 m/s [facility] Work Phone: VEGA index (continuity VTI) 1.49 cm2/m2 [facility] Work Phone: Avg e' pk meliton 0.07 m/s [facility] Work Phone: Avg E/e' ratio 19.45 [facility] Work Phone: Body surface area Derived from formula 2.08 m2 [facility] Work Phone: BP EF 62 % [facility] Work Phone: DI (Vmax) 0.73 [facility] Work Phone: DI (VTI) 0.74 m/2 [facility] Work Phone: E wave decelartion time 180.38 msec [facility] Work Phone: e' lateral pk meliton 0.0789 m/s [facility] Work Phone: e' lateral pk meliton 0.08 m/s [facility] Work Phone: e' septal pk meliton 0.0653 m/s [facility] Work Phone: e' septal pk meliton 0.07 m/s [facility] Work Phone: E/A ratio 2.[address] [facility] Work Phone: E/e' lateral ratio 17.62 [facility] Work Phone: E/e' septal ratio 21.[address] [facility] Work Phone: EF SP 2CH [address] [facility] Work Phone: EF SP 4CH [address] [facility] Work Phone: FS 28 % 28 - 44 % [facility] Work Phone: IVC ostium 2.[address] [facility] Work Phone: IVS 1.[address] [facility] Work Phone: LA AREA 2CH 24.36 [facility]2 [facility] Work Phone: LA area 4CH 20.36 cm2 [facility] Work Phone: LA ESV BP (MOD) 64 mL [facility] Work Phone: LA ESV BP (MOD) index 31 mL/m2 [facility] Work Phone: LA ESV SP 2CH (MOD) 76 mL [facility] Work Phone: LA ESV SP 4CH (MOD) 53 mL [facility] Work Phone: LV EDV BP [address] [facility] Work Phone: LV EDV SP 2CH [address] [facility] Work Phone: LV EDV SP 4CH [address] [facility] Work Phone: LV ESV BP [address] [facility] Work Phone: LV ESV SP 2CH 65 [facility] Work Phone: LV ESV SP 4CH 70 [facility] Work Phone: LV mass 254.73 g [facility] Work Phone: LV Mass Index 122.5 g/m2 [facility] Work Phone: LV RWT 0.42 [facility] Work Phone: LV stroke volume BP (ml) 111 mL [facility] Work Phone: LV stroke volume index BP 53.37 mL/m2 [facility] Work Phone: LVIDD 5.53 cm [facility] Work Phone: LVIDS 3.97 cm [facility] Work Phone: LVOT area 4.15 cm2 [facility] Work Phone: LVOT diameter 2.30 cm [facility] Work Phone: LVOT peak meliton 1.06 m/s [facility] Work Phone: LVOT peak VTI 26.61 cm [facility] Work Phone: LVOT stroke volume [facility]: LVOT stroke volume index 53.13 ml/m2 [facility] Work Phone: [phone] Mr max meliton 4.21 m/s [facility] Work Phone: MR VTI 134.50 [facility] Work Phone: MV mean gradient 3 mmHg [facility] Work Phone: MV peak gradient 11 mmHg [facility] Work Phone: MV pk A meliton 0.52 m/s [facility] Work Phone: MV pk E meliton 1.39 m/s [facility] Work Phone: MV stenosis pressure 1/2 time 58.56 ms [facility] Work Phone: MV valve area by continuity eq 2.93 cm2 [facility] Work Phone: MV valve area p 1/2 method 3.76 cm2 [facility] Work Phone: MV VTI 37.70 cm [facility] Work Phone: MVA (continuity VTI) 2.92 cm [facility] Work Phone: OSU AV VTI RATIO PRE STRESS 0.74 [facility] Work Phone: OSU ECHO LV BIPLANE SYSTOLIC VOLUME INDEX 33.17 mL/m2 [facility] Work Phone: OSU ECHO LV BP DIASTOLIC VOLUME INDEX 86.54 mL/m2 [facility] Work Phone: OSU ECHO MR PEAK GRADIENT 70.94 mmHg [facility] Work Phone: PW 1.16 cm [facility] Work Phone: RA area 4CH (MOD) 14.50 cm2 [facility] Work Phone: RA vol index 4CH (MOD) 18.27 mL/m2 [facility] Work Phone: Right atrium volume 4 chamber method of disks 38 mL [facility] Work Phone: RV Area diastolic 33.[address] [facility] Work Phone: RV Area systolic 21.30 cm2 [facility] Work Phone: RV basal diam 4.52 [facility] Work Phone: RV Fractional area change 35.8 % [facility] Work Phone: RV long diam 8.[address] Work Phone: RV mid diam 3.70 [facility] Work Phone: RV S' 22.01 cm/s [facility] Work Phone: RVOT peak gradient 4 mmHg [facility] Work Phone: RVOT peak meliton 0.96 m/s [facility] Work Phone: RVOT peak VTI 20.86 cm [facility] Work Phone: Sinus 3.24 cm [facility] Work Phone: STJ 2.61 cm [facility] Work Phone: Stroke Volume 111 cm/mL [facility] Work Phone: Stroke volume index [address] [facility] Work Phone: TAPSE 2.19 cm [facility] Work Phone: [facility] Work Phone: Cardiac echo [...] echocardiography study was performed. Imaging system used: [employer]. Indications Indications for study: shortness of breath. [facility] Radiology Study observation (narrative) [facility] HEPATIC FUNCTION PANELon Albumin [Mass/Vol] 3.5 g/dL 3.5 - 5.0 g/dL [facility] ALP [Catalytic activity/Vol] 70 U/L 32 - 126 U/L [facility] ALT [Catalytic activity/Vol] 8 U/L Low 10 - 52 U/L [facility] AST [Catalytic activity/Vol] 20 U/L 10 - 39 U/L [facility] Bilirubin [Mass/Vol] 1.7 mg/dL High NINF - 1.5 mg/dL [facility] Bilirubin.direct [Mass/Vol] 0.4 mg/dL High NINF - 0.3 mg/dL [facility] Protein [Mass/Vol] 6.0 g/dL Low 6.4 - 8.3 g/dL [facility] MAGNESIUMon 01-18-2024 Magnesium [Mass/Vol] 1.5 mg/dL Low 1.6 - 2 .6 mg/dL [facility] No Panel Informationon 01-18 Interpretation and review of laboratory results Abnormal [facility] PT,INR,PTTon 01-18-2024 aPTT Coag (PPP) [Time] 30.0 s [facility] INR Coag (Bld) [Relative time] 1.1 {INR} 0.9 - 1.1 [facility] Interpretation and review of laboratory results Abnormal [facility] PT Coag (PPP) [Time] 14.5 s High [facility] TSH W/FT4 REFLEXon Interpretation and review of laboratory results Normal [facility] TSH Qn 2.660 m[IU]/L [facility] DARYL AURIS SCREEN BY PCRO rdered By: Mynor Alejandro on 01-17-2024 Daryl auris Screen by PCR Not detected Not Detected [facility] Interpretation and review of laboratory results Normal [facility] This test was perfor med using a real-time PCR assay. This test was developed, and its performance characteristics determined by [facility]. It has not been cleared or approved by the FDA. The laboratory is regulated under CLIA as qualified to perform high-complexity testing. This test is used for clinical purposes. It should not be regarded as investigational or for research. [facility] CBC,PLATELETSon 01-17-2024 Erythrocyte distribution width (RBC) [Ratio] 14.0 % 10.9 - 14.3 % [facility] Hematocrit (Bld) [Volume fraction] 37.2 % Low 39.6 - 48.8 % [facility] Hemoglobin (Bld) [Mass/Vol] 12.0 g/dL Low 13.4 - 16.8 g/dL [facility] Interpretation and review of laboratory results Abnormal [facility] MCH (RBC) [Entitic mass] 27.9 pg 26.1 - 33.3 pg [facility] MCHC (RBC) [Mass/Vol] 32.3 g/dL 31.9 - 36.5 g/dL [facility] MCV (RBC) [Entitic vol] 86.5 fL 79.0 - 94.5 fL [facility] Platelet mean volume (Bld) [Entitic vol] 10.5 fL 8.7 - 12.3 fL [facility] Platelets (Bld) [#/Vol] 159 10*3/uL 146 - 337 K/uL [facility] RBC (Bld) [#/Vol] 4.30 10*6/uL Low [facility] WBC (Bld) [#/Vol] 3.69 10*3/uL Low 3.73 - 10. 10 K/uL [facility] CHEM 7 (LYTES,BUN,CREA,GLUC) on 01-17-2024 Anion gap [Moles/Vol] 13 mmol/L 7 - 17 mmol/L [facility] Chloride [Moles/Vol] 109 mmol/L High 98 - 10 8 mmol/L [facility] CO2 [Moles/Vol] 21 mmol/L 21 - 31 mmol/L [facility] Creatinine [Mass/Vol] 1.04 mg/dL 0.70 - 1.30 mg/dL [facility] eGFR, CKD-EPI, Male 86 - PINF [facility] Comment on above: Reported eGFR is bas ed on the CKD-EPI 2020 equation using creatinine, age, and sex. Glucose [Mass/Vol] 82 mg/dL 70 - 99 mg/dL [facility] Osmolality Calc [Osmolality] 292 [facility] Potassium [Moles/Vol] 4.4 mmol/L 3.5 - 5.0 mmol/L [facility] Sodium [Moles/Vol] 139 mmol/L 135 - 145 mmol/L [facility] Urea nitrogen [Mass/Vol] 17 mg/dL 7 - 25 mg/dL [facility] Urea nitrogen/Creatinine [Mass ratio] 16 mg/mg [facility] CT Abdomen and Pelvis [...] unremarkable. Kidneys: Severe atrophy of the bilateral [place]e kidney is without hydronephrosis. Right lower quadrant [...] unremarkable. Kidneys: Severe atrophy of the bilateral [place] kidney is without hydronephrosis. Right lower quadrant [...] middle lobe. Trace left pleural effusion. [facility] Radiology Study observation (narrative) [facility] HEPATIC FUNCTION PANELon Albumin [Mass/Vol] 3.5 g/dL 3.5 - 5.0 g/dL [facility] ALP [Catalytic activity/Vol] 73 U/L 32 - 126 U/L [facility] ALT [Catalytic activity/Vol] 7 U/L Low 10 - 52 U/L [facility] AST [Catalytic activity/Vol] 25 U/L 10 - 39 U/L [facility] Bilirubin [Mass/Vol] 1.8 mg/dL High NINF - 1.5 mg/dL [facility] Bilirubin.direct [Mass/Vol] 0.3 mg/dL High NINF - 0.3 mg/dL [facility] Protein [Mass/Vol] 6.0 g/dL Low 6.4 - 8.3 g/dL [facility] MAGNESIUMon 01-17-2024 Interpretation and review of laboratory results Normal [facility] Magnesium [Mass/Vol] 1.7 mg/dL 1.6 - 2 .6 mg/dL [facility] No Panel Informationon 01-17 Interpretation and review of laboratory results Abnormal [facility] PT,INR,PTTon 01-17-2024 aPTT Coag (PPP) [Time] 29.9 s [facility] INR Coag (Bld) [Relative time] 1.1 {INR} 0.9 - 1.1 [facility] Interpretation and review of laboratory results Abnormal [facility] PT Coag (PPP) [Time] 14.5 s High [facility] B-TYPE NATRIURETIC PEPTIDE ( BRAIN)on 01-16-2024 Interpretation and review of laboratory results Abnormal [facility] Natriuretic peptide B (Bld) [Mass/Vol] 212 pg/mL High 0 - 100 pg/mL [facility] CALCIUMon 01-16-2024 Calcium [Mass/Vol] 8.5 mg/dL Low 8.6 - 10. 5 mg/dL [facility] CBC AND ELECTRONIC DIFFon Basophils (Bld) [#/Vol] K/uL 0.00 - 0.09 K/uL [facility] Basophils/100 WBC (Bld) 0.6 % [facility] Differential cell count method Nom (Bld) Electronic Differential [facility] Eosinophils (Bld) [#/Vol] 0.09 10*3/uL 0.00 - 0.48 K/uL [facility] Eosinophils/100 WBC (Bld) 2.5 % [facility] Erythrocyte distribution width (RBC) [Ratio] 14.0 % 10.9 - 14.3 % [facility] Hematocrit (Bld) [Volume fraction] 37.4 % Low 39.6 - 48.8 % [facility] Hemoglobin (Bld) [Mass/Vol] 12.1 g/dL Low 13.4 - 16.8 g/dL [facility] Immature granulocytes (Bld) [#/Vol] K/uL NINF - 0.07 K/uL [facility] Immature granulocytes/100 WBC (Bld) 0.3 % [facility] Interpretation and review of laboratory results Abnormal [facility] Lymphocytes (Bld) [#/Vol] 1.16 10*3/uL 0.83 - 3.57 K/uL [facility] Lymphocytes/100 WBC (Bld) 32.0 % [facility] MCH (RBC) [Entitic mass] 28.4 pg 26.1 - 33.3 pg [facility] MCHC (RBC) [Mass/Vol] 32.4 g/dL 31.9 - 36.5 g/dL [facility] MCV (RBC) [Entitic vol] 87.8 fL 79.0 - 94.5 fL [facility] Monocytes (Bld) [#/Vol] 0.43 10*3/uL 0.24 - 0.93 K/uL [facility] Monocytes/100 WBC (Bld) 11.9 % [facility] Neutrophils (Bld) [#/Vol] 1.91 10*3/uL 1.57 - 6.19 K/uL [facility] Nucleated RBC/100 WBC (Bld) [Ratio] 0.0 % NINF [facility] Platelet mean volume (Bld) [Entitic vol] 10.1 fL 8.7 - 12.3 fL [facility] Platelets (Bld) [#/Vol] 155 10*3/uL 146 - 337 K/uL [facility] RBC (Bld) [#/Vol] 4.26 10*6/uL Low [facility] Segmented neutrophils/100 WBC (Bld) 52.7 % [facility] WBC (Bld) [#/Vol] 3.62 10*3/uL Low 3.73 - 10. 10 K/uL [facility] CHEM 7 (LYTES,BUN,CREA,GLUC) on 01-16-2024 Anion gap [Moles/Vol] 11 mmol/L 7 - 17 mmol/L [facility] Chloride [Moles/Vol] 108 mmol/L 98 - 10 8 mmol/L [facility] CO2 [Moles/Vol] 24 mmol/L 21 - 31 mmol/L [facility] Creatinine [Mass/Vol] 1.04 mg/dL 0.70 - 1.30 mg/dL [facility] eGFR, CKD-EPI, Male 86 - PINF [facility] Comment on above: Reported eGFR is bas ed on the CKD-EPI 2020 equation using creatinine, age, and sex. Glucose [Mass/Vol] 95 mg/dL 70 - 99 mg/dL [facility] Osmolality Calc [Osmolality] 293 [facility] Potassium [Moles/Vol] 4.0 mmol/L 3.5 - 5.0 mmol/L [facility] Sodium [Moles/Vol] 139 mmol/L 135 - 145 mmol/L [facility] Urea nitrogen [Mass/Vol] 19 mg/dL 7 - 25 mg/dL [facility] Urea nitrogen/Creatinine [Mass ratio] 18 mg/mg [facility] D-DIMER,QUANTITATIVEOrdered By: Shaji Kelly on 01-16-2024 Fibrin D-dimer FEU (PPP) [Mass/Vol] 0.67 High NINF [facility] Comment on above: The D-Dimer assay is intended for use in conjuction with a clinical pretest probability (PTP) assessment model to exclude pulmonary embolism (PE) and as an aid in the diagnosis of Deep Vein Thrombosis (DVT) in outpatients suspected of PE or DVT. For the assay in use at [facility] ([facility]), a cutoff of <0.50 mcg/mL has a Negative Predictive Value of 99.7% for exclusion of DVT in low and moderate PTP patients. Interpretation and review of laboratory results Abnormal [facility] HEPATIC FUNCTION PANELon Albumin [Mass/Vol] 3.7 g/dL 3.5 - 5.0 g/dL [facility] ALP [Catalytic activity/Vol] 70 U/L 32 - 126 U/L [facility] ALT [Catalytic activity/Vol] 8 U/L Low 10 - 52 U/L [facility] AST [Catalytic activity/Vol] 21 U/L 10 - 39 U/L [facility] Bilirubin [Mass/Vol] 1.9 mg/dL High NINF - 1.5 mg/dL [facility] Bilirubin.direct [Mass/Vol] 0.4 mg/dL High NINF - 0.3 mg/dL [facility] Protein [Mass/Vol] 6.1 g/dL Low 6.4 - 8.3 g/dL [facility] MAGNESIUMon 01-16-2024 Magnesium [Mass/Vol] 1.7 mg/dL 1.6 - 2 .6 mg/dL [facility] No Panel Informationon 01-16 Interpretation and review of laboratory results Abnormal [facility] Interpretation and review of laboratory results Normal [facility] PHOSPHATE, INORGANICon 01-16 Phosphate [Mass/Vol] 4.1 mg/dL 2.2 - 4 .6 mg/dL [facility] PT,INR,PTTon 01-16-2024 aPTT Coag (PPP) [Time] 29.6 s [facility] INR Coag (Bld) [Relative time] 1.2 {INR} High 0.9 - 1.1 [facility] Interpretation and review of laboratory results Abnormal [facility] PT Coag (PPP) [Time] 14.9 s High [facility] TACROLIMUS LEVEL, TROUGH (VT E DRUG LEVEL)Ordered By: Jimy Castillo on 01-16-2024 Interpretation and review of laboratory results Normal [facility] Tacrolimus (Bld) [Mass/Vol] 5.7 ng/mL Bone Marrow Transplant: 4.0-12.0, Therapeutic: 5.0-15.0 [facility] Method performed is a chemiluminescent microparticle immunoasssay on the [employer] i2000. The range is based on experience at [facility] and users should be aware that target concentrations vary widely depending on concomitant therapy, time post-transplant, and desired degree of immunosuppression. [facility] US.doppler Abdominal vessels on 01-16-2024 IMPRESSION: [...] pleural effusion. Trace right upper quadrant ascites. [facility] Radiology [facility]narrative) [facility] Ordered By: Iona Duran on 01-16-2024 [facility] Work Phone: XR Chest PA and Lateralon [...] Normal IMPRESSION IMPRESSION: Moderate right pleural effusion. [facility] Radiology Study observation (narrative) [facility] XR Chest PA and LateralOrder ed By: Daisha Patterson on 01-16-2024 [facility] Work Phone: ALL CBC WITH AUTO DIFFon BASOPHILS ABSOLUTE AUTO 0.0 [facility] Basophils/100 WBC (Bld) 0.5 % 0.2 - 2.0 % [facility] Eosinophils/100 WBC (Bld) 2.8 % 0.9 - 7.0 % [facility] Erythrocyte distribution width (RBC) [Ratio] 13.8 % 11.0 - 15.0 % [facility] Hematocrit (Bld) [Volume fraction] 43.7 % 42.0 - 54.0 % [facility] Hemoglobin (Bld) [Mass/Vol] 14.0 g/dL 14.0 - 18.0 g/dL [facility] IMMATURE GRANULOCYTES ABS AUTO 0.01 [facility] Immature granulocytes/100 WBC (Bld) 0.3 % 0.0 - 0.5 % [facility] LYMPHOCYTES ABSOLUTE AUTO 1.5 [facility] Lymphocytes/100 WBC (Bld) 37.5 % 20.5 - 60.0 % [facility] MCH (RBC) [Entitic mass] 28.4 pg 25.9 - 34.0 pg [facility] MCHC (RBC) [Mass/Vol] 32.0 g/dL 29.9 - 35.2 g/dL [facility] MCV (RBC) [Entitic vol] 88.6 fL 80.0 - 94.0 fL [facility] MONOCYTES ABSOLUTE AUTO 0.5 [facility] Monocytes/100 WBC (Bld) 11.9 % 1.7 - 12.0 % [facility] NEUTROPHILS ABSOLUTE AUTO 1.9 [facility] Neutrophils/100 WBC (Bld) 47.0 % 43.0 - 75.0 % [facility] Platelet mean volume (Bld) [Entitic vol] 10.3 fL 9.5 - 13.5 fL [facility] EO # 0.1 [facility] PLT 180 [facility] TB RBC 4.93 [facility] WBC 4.0 [facility] ALL CBC WITH AUTO DIFFon BASOPHILS ABSOLUTE AUTO 0.0 [facility] Basophils/100 WBC (Bld) 0.5 % 0.2 - 2.0 % [facility] Eosinophils/100 WBC (Bld) 2.6 % 0.9 - 7.0 % [facility] Erythrocyte distribution width (RBC) [Ratio] 13.5 % 11.0 - 15.0 % [facility] Hematocrit (Bld) [Volume fraction] 43.8 % 42.0 - 54.0 % [facility] Hemoglobin (Bld) [Mass/Vol] 14.0 g/dL 14.0 - 18.0 g/dL [facility] IMMATURE GRANULOCYTES ABS AUTO 0.00 [facility] Immature granulocytes/100 WBC (Bld) 0.0 % 0.0 - 0.5 % [facility] Interpretation and review of laboratory results Abnormal [facility] LYMPHOCYTES ABSOLUTE AUTO 1.8 [facility] Lymphocytes/100 WBC (Bld) 45.2 % 20.5 - 60.0 % [facility] MCH (RBC) [Entitic mass] 27.9 pg 25.9 - 34.0 pg [facility] MCHC (RBC) [Mass/Vol] 32.0 g/dL 29.9 - 35.2 g/dL [facility] MCV (RBC) [Entitic vol] 87.4 fL 80.0 - 94.0 fL [facility] MONOCYTES ABSOLUTE AUTO 0.4 [facility] Monocytes/100 WBC (Bld) 9.6 % 1.7 - 12.0 % [facility] NEUTROPHILS ABSOLUTE AUTO 1.6 [facility] Neutrophils/100 WBC (Bld) 42.1 % Low 43.0 - 75.0 % [facility] Platelet mean volume (Bld) [Entitic vol] 9.8 fL 9.5 - 13.5 fL [facility] EO # 0.1 [facility] PLT 180 [facility] RBC 5.01 [facility] WBC 3.9 Low [facility] CHEM 7 (LYTES,BUN,CREA,GLUC) on 09-11-2023 Anion gap [Moles/Vol] 13 mmol/L 7 - 17 mmol/L [facility] Chloride [Moles/Vol] 111 mmol/L High 98 - 10 8 mmol/L [facility] CO2 [Moles/Vol] 20 mmol/L Low 21 - 31 mmol/L [facility] Creatinine [Mass/Vol] 1.13 mg/dL 0.70 - 1.30 mg/dL [facility] eGFR, CKD-EPI, Male 78 - PINF [facility] Glucose [Mass/Vol] 109 mg/dL High 70 - 99 mg/dL [facility] Interpretation and review of laboratory results Abnormal [facility] Osmolality Calc [Osmolality] 295 [facility] Potassium [Moles/Vol] 4.3 mmol/L 3.5 - 5.0 mmol/L [facility] Sodium [Moles/Vol] 140 mmol/L 135 - 145 mmol/L [facility] Urea nitrogen [Mass/Vol] 16 mg/dL 7 - 25 mg/dL [facility] Urea nitrogen/Creatinine [Mass ratio] 14 mg/mg [facility] GLUCOSE POCon 09-11-2023 Glucose [Mass/Vol] 108 mg/dL High 70 - 99 mg/dL [facility] Interpretation and review of laboratory results Abnormal [facility] POC Sample Type CAPBL [facility] Legionella sp identified Org specific cx Nom (Unsp spec)on 09-11-2023 Bacteria identified Cx Nom (Unsp spec) NO GROWTH DAY 7 OF 7 [facility] MAGNESIUMon 09-11-2023 Interpretation and review of laboratory results Normal [facility] Magnesium [Mass/Vol] 1.6 mg/dL 1.6 - 2 .6 mg/dL [facility] No Panel Informationon 09-11 [facility] TACROLIMUS LEVEL, TROUGH (VT E DRUG LEVEL)on 09-11-2023 Interpretation and review of laboratory results Normal [facility] Tacrolimus (Bld) [Mass/Vol] 11.5 ng/mL [facility] CBC,PLATELETSon 09-10-2023 Erythrocyte distribution width (RBC) [Ratio] 13.9 % 10.9 - 14.3 % [facility] Hematocrit (Bld) [Volume fraction] 40.0 % 39.6 - 48.8 % [facility] Hemoglobin (Bld) [Mass/Vol] 12.7 g/dL Low 13.4 - 16.8 g/dL [facility] Interpretation and review of laboratory results Abnormal [facility] MCH (RBC) [Entitic mass] 27.3 pg 26.1 - 33.3 pg [facility] MCHC (RBC) [Mass/Vol] 31.8 g/dL Low 31.9 - 36.5 g/dL [facility] MCV (RBC) [Entitic vol] 86.0 fL 79.0 - 94.5 fL [facility] Platelet mean volume (Bld) [Entitic vol] 9.5 fL 8.7 - 12.3 fL [facility] Platelets (Bld) [#/Vol] 225 10*3/uL 146 - 337 K/uL [facility] RBC (Bld) [#/Vol] 4.65 10*6/uL [facility] WBC (Bld) [#/Vol] 6.52 10*3/uL 3.73 - 10. 10 K/uL [facility] CHEM 7 (LYTES,BUN,CREA,GLUC) on 09-10-2023 Anion gap [Moles/Vol] 13 mmol/L 7 - 17 mmol/L [facility] Chloride [Moles/Vol] 111 mmol/L High 98 - 10 8 mmol/L [facility] CO2 [Moles/Vol] 20 mmol/L Low 21 - 31 mmol/L [facility] Creatinine [Mass/Vol] 1.27 mg/dL 0.70 - 1.30 mg/dL [facility] eGFR, CKD-EPI, Male 68 - PINF [facility] Glucose [Mass/Vol] 100 mg/dL High 70 - 99 mg/dL [facility] Osmolality Calc [Osmolality] 293 [facility] Potassium [Moles/Vol] 4.4 mmol/L 3.5 - 5.0 mmol/L [facility] Sodium [Moles/Vol] 140 mmol/L 135 - 145 mmol/L [facility] Urea nitrogen [Mass/Vol] 12 mg/dL 7 - 25 mg/dL [facility] Urea nitrogen/Creatinine [Mass ratio] 9 mg/mg [facility] HEPATIC FUNCTION PANELon Albumin [Mass/Vol] 3.3 g/dL Low 3.5 - 5.0 g/dL [facility] ALP [Catalytic activity/Vol] 143 U/L High 32 - 126 U/L [facility] ALT [Catalytic activity/Vol] 28 U/L 10 - 52 U/L [facility] AST [Catalytic activity/Vol] 29 U/L 10 - 39 U/L [facility] Bilirubin [Mass/Vol] 0.9 mg/dL [facility] - 1.5 mg/dL [facility] Bilirubin.direct [Mass/Vol] 0.2 mg/dL [facility] - 0.3 mg/dL [facility] Protein [Mass/Vol] 6.8 g/dL 6.4 - 8.3 g/dL [facility] MAGNESIUMon 09-10-2023 Interpretation and review of laboratory results Normal [facility] Magnesium [Mass/Vol] 1.9 mg/dL 1.6 - 2 .6 mg/dL [facility] No Panel Informationon 09-10 Interpretation and review of laboratory results Abnormal [facility] TACROLIMUS LEVEL, TROUGH (VT E DRUG LEVEL)Ordered By: Jimy Castillo on 09-10-2023 Interpretation and review of laboratory results Normal [facility] Tacrolimus (Bld) [Mass/Vol] 11.8 ng/mL [facility] CHEM 7 (LYTES,BUN,CREA,GLUC) on 09-09-2023 Anion gap [Moles/Vol] 14 mmol/L 7 - 17 mmol/L [facility] Chloride [Moles/Vol] 113 mmol/L High 98 - 10 8 mmol/L [facility] CO2 [Moles/Vol] 18 mmol/L Low 21 - 31 mmol/L [facility] Creatinine [Mass/Vol] 1.03 mg/dL 0.70 - 1.30 mg/dL [facility] eGFR, CKD-EPI, Male 87 - PINF [facility] Glucose [Mass/Vol] 106 mg/dL High 70 - 99 mg/dL [facility] Interpretation and review of laboratory results Abnormal [facility] Osmolality Calc [Osmolality] 294 [facility] Potassium [Moles/Vol] 4.0 mmol/L 3.5 - 5.0 mmol/L [facility] Sodium [Moles/Vol] 141 mmol/L 135 - 145 mmol/L [facility] Urea nitrogen [Mass/Vol] 10 mg/dL 7 - 25 mg/dL [facility] Urea nitrogen/Creatinine [Mass ratio] 10 mg/mg [facility] MAGNESIUMon 09-09-2023 Magnesium [Mass/Vol] 1.6 mg/dL 1.6 - 2 .6 mg/dL [facility] No Panel Informationon 09-09 Interpretation and review of laboratory results Normal [facility] PHOSPHATE, INORGANICon 09-09 Phosphate [Mass/Vol] 3.8 mg/dL 2.2 - 4 .6 mg/dL [facility] TACROLIMUS LEVEL, TROUGH (VT E DRUG LEVEL)on 09-09-2023 Interpretation and review of laboratory results Normal [facility] Tacrolimus (Bld) [Mass/Vol] 9.2 ng/mL [facility] CBC,PLATELETSon 09-08-2023 Erythrocyte distribution width (RBC) [Ratio] 13.6 % 10.9 - 14.3 % [facility] Hematocrit (Bld) [Volume fraction] 36.1 % Low 39.6 - 48.8 % [facility] Hemoglobin (Bld) [Mass/Vol] 11.6 g/dL Low 13.4 - 16.8 g/dL [facility] Interpretation and review of laboratory results Abnormal [facility] MCH (RBC) [Entitic mass] 27.4 pg 26.1 - 33.3 pg [facility] MCHC (RBC) [Mass/Vol] 32.1 g/dL 31.9 - 36.5 g/dL [facility] MCV (RBC) [Entitic vol] 85.1 fL 79.0 - 94.5 fL [facility] Platelet mean volume (Bld) [Entitic vol] 9.5 fL 8.7 - 12.3 fL [facility] Platelets (Bld) [#/Vol] 182 10*3/uL 146 - 337 K/uL [facility] RBC (Bld) [#/Vol] 4.24 10*6/uL Low [facility] WBC (Bld) [#/Vol] 4.59 10*3/uL 3.73 - 10. 10 K/uL [facility] CHEM 7 (LYTES,BUN,CREA,GLUC) on 09-08-2023 Anion gap [Moles/Vol] 12 mmol/L 7 - 17 mmol/L [facility] Chloride [Moles/Vol] 113 mmol/L High 98 - 10 8 mmol/L [facility] CO2 [Moles/Vol] 21 mmol/L 21 - 31 mmol/L [facility] Creatinine [Mass/Vol] 1.14 mg/dL 0.70 - 1.30 mg/dL [facility] eGFR, CKD-EPI, Male 77 - PINF [facility] Glucose [Mass/Vol] 107 mg/dL High 70 - 99 mg/dL [facility] Osmolality Calc [Osmolality] 296 [facility] Potassium [Moles/Vol] 3.9 mmol/L 3.5 - 5.0 mmol/L [facility] Sodium [Moles/Vol] 142 mmol/L 135 - 145 mmol/L [facility] Urea nitrogen [Mass/Vol] 11 mg/dL 7 - 25 mg/dL [facility] Urea nitrogen/Creatinine [Mass ratio] 10 mg/mg [facility] HEPATIC FUNCTION PANELon Albumin [Mass/Vol] 2.9 g/dL Low 3.5 - 5.0 g/dL [facility] ALP [Catalytic activity/Vol] 133 U/L High 32 - 126 U/L [facility] ALT [Catalytic activity/Vol] 23 U/L 10 - 52 U/L [facility] AST [Catalytic activity/Vol] 23 U/L 10 - 39 U/L [facility] Bilirubin [Mass/Vol] 0.8 mg/dL NINF - 1.5 mg/dL [facility] Bilirubin.direct [Mass/Vol] 0.2 mg/dL NINF - 0.3 mg/dL [facility] Protein [Mass/Vol] 5.9 g/dL Low 6.4 - 8.3 g/dL [facility] MAGNESIUMon 09-08-2023 Interpretation and review of laboratory results Normal [facility] Magnesium [Mass/Vol] 1.8 mg/dL 1.6 - 2 .6 mg/dL [facility] No Panel Informationon 09-08 Interpretation and review of laboratory results Abnormal [facility] PHOSPHATE, INORGANICon 09-08 Interpretation and review of laboratory results Normal [facility] Phosphate [Mass/Vol] 4.1 mg/dL 2.2 - 4 .6 mg/dL [facility] TACROLIMUS LEVEL, TROUGH (VT E DRUG LEVEL)on 09-08-2023 Interpretation and review of laboratory results Normal [facility] Tacrolimus (Bld) [Mass/Vol] 8.5 ng/mL [facility] CBC,PLATELETSon 09-07-2023 Erythrocyte distribution width (RBC) [Ratio] 13.5 % 10.9 - 14.3 % [facility] Hematocrit (Bld) [Volume fraction] 37.1 % Low 39.6 - 48.8 % [facility] Hemoglobin (Bld) [Mass/Vol] 11.9 g/dL Low 13.4 - 16.8 g/dL [facility] Interpretation and review of laboratory results Abnormal [facility] MCH (RBC) [Entitic mass] 27.7 pg 26.1 - 33.3 pg [facility] MCHC (RBC) [Mass/Vol] 32.1 g/dL 31.9 - 36.5 g/dL [facility] MCV (RBC) [Entitic vol] 86.5 fL 79.0 - 94.5 fL [facility] Platelet mean volume (Bld) [Entitic vol] 9.6 fL 8.7 - 12.3 fL [facility] Platelets (Bld) [#/Vol] 176 10*3/uL 146 - 337 K/uL [facility] RBC (Bld) [#/Vol] 4.29 10*6/uL Low [facility] WBC (Bld) [#/Vol] 4.10 10*3/uL 3.73 - 10. 10 K/uL [facility] CHEM 7 (LYTES,BUN,CREA,GLUC) on 09-07-2023 Anion gap [Moles/Vol] 13 mmol/L 7 - 17 mmol/L [facility] Chloride [Moles/Vol] 113 mmol/L High 98 - 10 8 mmol/L [facility] CO2 [Moles/Vol] 19 mmol/L Low 21 - 31 mmol/L [facility] Creatinine [Mass/Vol] 1.22 mg/dL 0.70 - 1.30 mg/dL [facility] eGFR, CKD-EPI, Male 71 - PINF [facility] Glucose [Mass/Vol] 107 mg/dL High 70 - 99 mg/dL [facility] Osmolality Calc [Osmolality] 295 [facility] Potassium [Moles/Vol] 3.9 mmol/L 3.5 - 5.0 mmol/L [facility] Sodium [Moles/Vol] 141 mmol/L 135 - 145 mmol/L [facility] Urea nitrogen [Mass/Vol] 13 mg/dL 7 - 25 mg/dL [facility] Urea nitrogen/Creatinine [Mass ratio] 11 mg/mg [facility] HEPATIC FUNCTION PANELon Albumin [Mass/Vol] 2.9 g/dL Low 3.5 - 5.0 g/dL [facility] ALP [Catalytic activity/Vol] 111 U/L 32 - 126 U/L [facility] ALT [Catalytic activity/Vol] 18 U/L 10 - 52 U/L [facility] AST [Catalytic activity/Vol] 23 U/L 10 - 39 U/L [facility] Bilirubin [Mass/Vol] 0.8 mg/dL NINF - 1.5 mg/dL [facility] Bilirubin.direct [Mass/Vol] 0.3 mg/dL High NINF - 0.3 mg/dL [facility] Protein [Mass/Vol] 6.0 g/dL Low 6.4 - 8.3 g/dL [facility] MAGNESIUMon 09-07-2023 Interpretation and review of laboratory results Normal [facility] Magnesium [Mass/Vol] 1.7 mg/dL 1.6 - 2 .6 mg/dL [facility] No Panel Informationon 09-07 Interpretation and review of laboratory results Abnormal [facility] PHOSPHATE, INORGANICon 09-07 Interpretation and review of laboratory results Normal [facility] Phosphate [Mass/Vol] 4.4 mg/dL 2.2 - 4 .6 mg/dL [facility] TACROLIMUS LEVEL, TROUGH (VT E DRUG LEVEL)Ordered By: Elizabeth Maldonado on 09-07-2023 Interpretation and review of laboratory results Normal [facility] Tacrolimus (Bld) [Mass/Vol] 7.8 ng/mL [facility] CBC,PLATELETSon 09-06-2023 Erythrocyte distribution width (RBC) [Ratio] 13.4 % 10.9 - 14.3 % [facility] Hematocrit (Bld) [Volume fraction] 38.4 % Low 39.6 - 48.8 % [facility] Hemoglobin (Bld) [Mass/Vol] 11.9 g/dL Low 13.4 - 16.8 g/dL [facility] Interpretation and review of laboratory results Abnormal [facility] MCH (RBC) [Entitic mass] 26.6 pg 26.1 - 33.3 pg [facility] MCHC (RBC) [Mass/Vol] 31.0 g/dL Low 31.9 - 36.5 g/dL [facility] MCV (RBC) [Entitic vol] 85.9 fL 79.0 - 94.5 fL [facility] Platelet mean volume (Bld) [Entitic vol] 9.7 fL 8.7 - 12.3 fL [facility] Platelets (Bld) [#/Vol] 181 10*3/uL 146 - 337 K/uL [facility] RBC (Bld) [#/Vol] 4.47 10*6/uL [facility] WBC (Bld) [#/Vol] 4.41 10*3/uL 3.73 - 10. 10 K/uL [facility] CHEM 7 (LYTES,BUN,CREA,GLUC) on 09-06-2023 Anion gap [Moles/Vol] 14 mmol/L 7 - 17 mmol/L [facility] Chloride [Moles/Vol] 109 mmol/L High 98 - 10 8 mmol/L [facility] CO2 [Moles/Vol] 19 mmol/L Low 21 - 31 mmol/L [facility] Creatinine [Mass/Vol] 1.26 mg/dL 0.70 - 1.30 mg/dL [facility] eGFR, CKD-EPI, Male 69 - PINF [facility] Glucose [Mass/Vol] 114 mg/dL High 70 - 99 mg/dL [facility] Osmolality Calc [Osmolality] 291 [facility] Potassium [Moles/Vol] 4.1 mmol/L 3.5 - 5.0 mmol/L [facility] Sodium [Moles/Vol] 138 mmol/L 135 - 145 mmol/L [facility] Urea nitrogen [Mass/Vol] 16 mg/dL 7 - 25 mg/dL [facility] Urea nitrogen/Creatinine [Mass ratio] 13 mg/mg [facility] HEPATIC FUNCTION PANELon Albumin [Mass/Vol] 3.0 g/dL Low 3.5 - 5.0 g/dL [facility] ALP [Catalytic activity/Vol] 115 U/L 32 - 126 U/L [facility] ALT [Catalytic activity/Vol] 25 U/L 10 - 52 U/L [facility] AST [Catalytic activity/Vol] 31 U/L 10 - 39 U/L [facility] Bilirubin [Mass/Vol] 1.0 mg/dL NINF - 1.5 mg/dL [facility] Bilirubin.direct [Mass/Vol] 0.3 mg/dL High NINF - 0.3 mg/dL [facility] Protein [Mass/Vol] 6.3 g/dL Low 6.4 - 8.3 g/dL [facility] MAGNESIUMon 09-06-2023 Interpretation and review of laboratory results Normal [facility] Magnesium [Mass/Vol] 2.0 mg/dL 1.6 - 2 .6 mg/dL [facility] No Panel Informationon 09-06 Interpretation and review of laboratory results Abnormal [facility] TACROLIMUS LEVEL, TROUGH (VT E DRUG LEVEL)on 09-06-2023 Interpretation and review of laboratory results Normal [facility] Tacrolimus (Bld) [Mass/Vol] 6.7 ng/mL [facility] CBC,PLATELETSon 09-05-2023 Erythrocyte distribution width (RBC) [Ratio] 13.5 % 10.9 - 14.3 % [facility] Hematocrit (Bld) [Volume fraction] 35.6 % Low 39.6 - 48.8 % [facility] Hemoglobin (Bld) [Mass/Vol] 11.4 g/dL Low 13.4 - 16.8 g/dL [facility] Interpretation and review of laboratory results Abnormal [facility] MCH (RBC) [Entitic mass] 27.5 pg 26.1 - 33.3 pg [facility] MCHC (RBC) [Mass/Vol] 32.0 g/dL 31.9 - 36.5 g/dL [facility] MCV (RBC) [Entitic vol] 86.0 fL 79.0 - 94.5 fL [facility] [facility] Platelet mean volume (Bld) [Entitic vol] 10.0 fL 8.7 - 12.3 fL [facility] Platelets (Bld) [#/Vol] 170 10*3/uL 146 - 337 K/uL [facility] RBC (Bld) [#/Vol] 4.14 10*6/uL Low [facility] WBC (Bld) [#/Vol] 4.24 10*3/uL 3.73 - 10. 10 K/uL [facility] CHEM 7 (LYTES,BUN,CREA,GLUC) on 09-05-2023 Anion gap [Moles/Vol] 12 mmol/L 7 - 17 mmol/L [facility] Chloride [Moles/Vol] 107 mmol/L 98 - 10 8 mmol/L [facility] CO2 [Moles/Vol] 20 mmol/L Low 21 - 31 mmol/L [facility] Creatinine [Mass/Vol] 1.43 mg/dL High 0.70 - 1.30 mg/dL [facility] eGFR, CKD-EPI, Male 60 Low - PINF [facility] Glucose [Mass/Vol] 111 mg/dL High 70 - 99 mg/dL [facility] Osmolality Calc [Osmolality] 286 [facility] Potassium [Moles/Vol] 4.2 mmol/L 3.5 - 5.0 mmol/L [facility] Sodium [Moles/Vol] 135 mmol/L 135 - 145 mmol/L [facility] Urea nitrogen [Mass/Vol] 18 mg/dL 7 - 25 mg/dL [facility] Urea nitrogen/Creatinine [Mass ratio] 13 mg/mg [facility] CONTINUOUS CARDIAC MONITORIN G STRIPon 09-05-2023 [facility] HEPATIC FUNCTION PANELon Albumin [Mass/Vol] 2.8 g/dL Low 3.5 - 5.0 g/dL [facility] ALP [Catalytic activity/Vol] 103 U/L 32 - 126 U/L [facility] ALT [Catalytic activity/Vol] 26 U/L 10 - 52 U/L [facility] AST [Catalytic activity/Vol] 38 U/L 10 - 39 U/L [facility] Bilirubin [Mass/Vol] 0.9 mg/dL NINF - 1.5 mg/dL [facility] Bilirubin.direct [Mass/Vol] 0.1 mg/dL NINF - 0.3 mg/dL [facility] Protein [Mass/Vol] 6.1 g/dL Low 6.4 - 8.3 g/dL [facility] HISTOPLASMA ANTIGEN, FLUIDon 09-05-2023 FH SOURCE BAL RML [facility] Histo FLD interpretation Negative [facility] Histoplasma Antigen, FLUID Not detected ng/mL [facility] HISTOPLASMA CAPSULATUM/BLAST OMYCES SPECIES,PCR [facility] HISTO/BLASTO RESULT Negative Not Applicable [facility] Specimen source Nom (Unsp spec) BAL RML [facility] IMMUNOPHENOTYPING, TISSUE/FL UIDon 09-05-2023 BKR DX CODE Use Ordering [facility] Flow Interpretation See Comment [facility] Flow Interpreted by: Yossi Perla MD, PhD [facility] MAGNESIUMon 09-05-2023 Interpretation and review of laboratory results Normal [facility] Magnesium [Mass/Vol] 1.7 mg/dL 1.6 - 2 .6 mg/dL [facility] No Panel Informationon 09-05 Interpretation and review of laboratory results Abnormal [facility] TACROLIMUS LEVEL, TROUGH (VT E DRUG LEVEL)Ordered By: Raymundo Mehta on 09-05-2023 Interpretation and review of laboratory results Normal [facility] Tacrolimus (Bld) [Mass/Vol] 5.3 ng/mL [facility] ARTERIAL BLOOD GAS (FULL GOSS EL)on 09-04-2023 Base excess Calc (Bld) [Moles/Vol] -1.2000 mmol/L -3.0 - 3.0 mmol/L [facility] Calcium.ionized (Bld) [Mass/Vol] 4.79 mg/dL 4.60 - 5.30 mg/dL [facility] Carboxyhemoglobin (Bld) [Mass fraction] 0.7 % NINF - 1.5 % [facility] CO2 (Bld) [Partial pressure] 30 mm[Hg] Low [facility] Glucose [Mass/Vol] 159 mg/dL High 70 - 99 mg/dL [facility] HCO3 (Bld) [Moles/Vol] 22 mmol/L 22 - 28 mmol/L [facility] Hematocrit (Bld) [Volume fraction] 38.0 % Low 40.2 - 50.4 % [facility] Hemoglobin (Bld) [Mass/Vol] 12.6 g/dL Low 13.4 - 16.8 g/dL [facility] Interpretation and review of laboratory results Abnormal [facility] Lactate [Moles/Vol] 2.0 mmol/L High 0.5 - 1. 6 mmol/L [facility] Methemoglobin (Bld) [Mass fraction] 0.0 % NINF - 1.5 % [facility] Oxygen (Bld) [Partial pressure] 62 mm[Hg] Low [facility] Oxygen saturation in Blood 92 % Low 94 - 98 % [facility] Oxyhemoglobin 91 % Low 94 - 98 % [facility] pH (Bld) 7.48 [pH] High 7.35 - 7.45 [facility] Potassium [Moles/Vol] 4.2 mmol/L 3.5 - 5.0 mmol/L [facility] Sodium [Moles/Vol] 130 mmol/L Low 135 - 145 mmol/L [facility] Specimen source Nom (Unsp spec) Arterial [facility] Bacteria identified Respirat ory culture Nom (Unsp spec)on 09-04-2023 Bacteria identified Cx Nom (Unsp spec) NO GROWTH DAY 2 OF 2 [facility] Microscopic observation Other stain Nom (Unsp spec) Cytocentrifuge preparation [facility] Microscopic observation Other stain Nom (Unsp spec) Neutrophils, Rare [facility] Microscopic observation Other stain Nom (Unsp spec) Red Blood Cells Present [facility] Microscopic observation Other stain Nom (Unsp spec) No organisms seen [facility] Bacteria identified Respirat ory culture Nom (Unsp spec)Ordered By: Jose Salgado on 09-04-2023 Bacteria identified Cx Nom (Unsp spec) NO GROWTH DAY 2 OF 2 [facility] Microscopic observation Other stain Nom (Unsp spec) Cytocentrifuge preparation [facility] Microscopic observation Other stain Nom (Unsp spec) Neutrophils, Moderate [facility] Microscopic observation Other stain Nom (Unsp spec) Red Blood Cells Present [facility] Microscopic observation Other stain Nom (Unsp spec) No organisms seen [facility] CBC,PLATELETSon 09-04-2023 Erythrocyte distribution width (RBC) [Ratio] 13.2 % 10.9 - 14.3 % [facility] Hematocrit (Bld) [Volume fraction] 38.7 % Low 39.6 - 48.8 % [facility] Hemoglobin (Bld) [Mass/Vol] 12.3 g/dL Low 13.4 - 16.8 g/dL [facility] Interpretation and review of laboratory results Abnormal [facility] MCH (RBC) [Entitic mass] 27.9 pg 26.1 - 33.3 pg [facility] MCHC (RBC) [Mass/Vol] 31.8 g/dL Low 31.9 - 36.5 g/dL [facility] MCV (RBC) [Entitic vol] 87.8 fL 79.0 - 94.5 fL [facility] Platelet mean volume (Bld) [Entitic vol] 9.8 fL 8.7 - 12.3 fL [facility] Platelets (Bld) [#/Vol] 173 10*3/uL 146 - 337 K/uL [facility] RBC (Bld) [#/Vol] 4.41 10*6/uL [facility] WBC (Bld) [#/Vol] 4.57 10*3/uL 3.73 - 10. 10 K/uL [facility] CHEM 7 (LYTES,BUN,CREA,GLUC) on 09-04-2023 Anion gap [Moles/Vol] 16 mmol/L 7 - 17 mmol/L [facility] Chloride [Moles/Vol] 104 mmol/L 98 - 10 8 mmol/L [facility] CO2 [Moles/Vol] 18 mmol/L Low 21 - 31 mmol/L [facility] Creatinine [Mass/Vol] 1.22 mg/dL 0.70 - 1.30 mg/dL [facility] eGFR, CKD-EPI, Male 71 - PINF [facility] Glucose [Mass/Vol] 124 mg/dL High 70 - 99 mg/dL [facility] Osmolality Calc [Osmolality] 284 [facility] Potassium [Moles/Vol] 3.9 mmol/L 3.5 - 5.0 mmol/L [facility] Sodium [Moles/Vol] 134 mmol/L Low 135 - 145 mmol/L [facility] Urea nitrogen [Mass/Vol] 15 mg/dL 7 - 25 mg/[facility] Urea nitrogen/Creatinine [Mass ratio] 12 mg/mg [facility] CMV PCR,FLUIDS,URINE,EYE ETC on 09-04-2023 Specimen source Nom (Unsp spec) BAL LLL [facility] Specimen source Nom (Unsp spec) BAL RML [facility] HEPATIC FUNCTION PANELon Albumin [Mass/Vol] 3.0 g/dL Low 3.5 - 5.0 g/dL [facility] ALP [Catalytic activity/Vol] 112 U/L 32 - 126 U/L [facility] ALT [Catalytic activity/Vol] 22 U/L 10 - 52 U/L [facility] AST [Catalytic activity/Vol] 30 U/L 10 - 39 U/L [facility] Bilirubin [Mass/Vol] 1.2 mg/dL NINF - 1.5 mg/dL [facility] Bilirubin.direct [Mass/Vol] 0.4 mg/dL High NINF - 0.3 mg/dL [facility] Protein [Mass/Vol] 6.4 g/dL 6.4 - 8.3 g/dL [facility] LEGIONELLA PCRon 09-04-2023 Legionella sp rRNA Probe Ql (Unsp spec) Negative Not Applicable [facility] Specimen source Nom (Unsp spec) BAL RML [facility] Laboratory - Microbiology an d Antimicrobial susceptibilityon 09-04-2023 CMV DNA ESTELITA+probe Ql (Unsp spec) Negative Negative [facility] MAGNESIUMon 09-04-2023 Magnesium [Mass/Vol] 1.4 mg/dL Low 1.6 - 2 .6 mg/dL [facility] No Panel Informationon 09-04 Annotation comment [Interpretation] Narrative DNR [facility] PN Report Status DNR [facility] Pneumocystis jiroveci,PCR result Negative Not Applicable [facility] Interpretation and review of laboratory results [facility] PNEUMOCYSTIS JIROVECI,PCRon 09-04-2023 Specimen source Nom (Unsp spec) BAL LLL [facility] Specimen source Nom (Unsp spec) BAL RML [facility] Portable XR Chest Viewson RADIOLOGY RADIOLOGY [facility] Radiology Study observation (narrative) [facility] Portable XR Chest ViewsOrder ed By: Joanie Nugent on 09-04-2023 [facility] Work Phone: TACROLIMUS LEVEL, TROUGH (VT E DRUG LEVEL)on 09-04-2023 Interpretation and review of laboratory results Abnormal [facility] Tacrolimus (Bld) [Mass/Vol] 3.6 ng/mL Low [facility] ASPERGILLUS ANTIGEN, BALon 1 Galactomannan Ag IA Qn (Unsp spec) <0.500 NINF [facility] Galactomannan Ag IA Qn (Unsp spec) <0.500 NINF [facility] BAL CONSULTOrdered By: Noa Peralta on 09-03-2023 ALVEOLAR MACROPHAGES 32 % [facility] Work Phone: Bal comments Correlation with microbiology stains and cultures is recommended. [facility] Work Phone: Bal Diff Quik Stain Quality Check Acceptable [facility] Work Phone: BKR BAL INTERPRETATION Cellular specimen comprised of alveolar macrophages and small lymphocytes. No definitive microorganisms are observed. Moderate degenerative changes. [facility] Work Phone: BKR DX CODE Use Ordering [facility] Work Phone: Eosinophils Patterson stain Ql (Unsp spec) 0 % [facility] Work Phone: Lymphocytes/100 WBC (Bld) 57 % [facility] Work Phone: Neutrophils/100 WBC Manual cnt (Bronch spec) 11 % [facility] Work Phone: Pathologist review Jame (Unsp spec) [Interp] Leonardo Peralta MD [facility] Work Phone: [facility] Work Phone: BAL CONSULTon 09-03-2023 ALVEOLAR MACROPHAGES 33 % [facility] Bal comments Correlation with microbiology stains and cultures is recommended. Correlation with viral studies is recommended. [facility] Bal Diff Quik Stain Quality Check Acceptable [facility] BKR BAL INTERPRETATION Cellular specimen comprised of alveolar macrophages and small lymphocytes. No definitive microorganisms are observed. Rare degenerating cells with changes suggestive of viral cytopathic effect are noted. Moderate degenerative changes. [facility] BKR DX CODE Use Ordering [facility] Eosinophils Patterson stain Ql (Unsp spec) 0 % [facility] Lymphocytes/100 WBC (Bld) 49 % [facility] Neutrophils/100 WBC Manual cnt (Bronch spec) 18 % [facility] Pathologist review Jame (Unsp spec) [Interp] Leonardo Peralta MD [facility] BRONCHOSCOPYon 09-03-2023 LAB, [facility] CBC,PLATELETSon 09-03-2023 Erythrocyte distribution width (RBC) [Ratio] 13.4 % 10.9 - 14.3 % [facility] Hematocrit (Bld) [Volume fraction] 39.6 % 39.6 - 48.8 % [facility] Hemoglobin (Bld) [Mass/Vol] 12.8 g/dL Low 13.4 - 16.8 g/dL [facility] Interpretation and review of laboratory results Abnormal [facility] MCH (RBC) [Entitic mass] 27.8 pg 26.1 - 33.3 pg [facility] MCHC (RBC) [Mass/Vol] 32.3 g/dL 31.9 - 36.5 g/dL [facility] MCV (RBC) [Entitic vol] 85.9 fL 79.0 - 94.5 fL [facility] Platelet mean volume (Bld) [Entitic vol] 9.4 fL 8.7 - 12.3 fL [facility] Platelets (Bld) [#/Vol] 222 10*3/uL 146 - 337 K/uL [facility] RBC (Bld) [#/Vol] 4.61 10*6/uL [facility] WBC (Bld) [#/Vol] 4.36 10*3/uL 3.73 - 10. 10 K/[facility]L [facility] CHEM 7 (LYTES,BUN,CREA,GLUC) on 09-03-2023 Anion gap [Moles/Vol] 12 mmol/L 7 - 17 mmol/L [facility] Chloride [Moles/Vol] 104 mmol/L 98 - 10 8 mmol/L [facility] CO2 [Moles/Vol] 24 mmol/L 21 - 31 mmol/L [facility] Creatinine [Mass/Vol] 1.20 mg/dL 0.70 - 1.30 mg/dL [facility] eGFR, CKD-EPI, Male 74 - PINF [facility] Glucose [Mass/Vol] 112 mg/dL High 70 - 99 mg/dL [facility] Osmolality Calc [Osmolality] 288 [facility] Potassium [Moles/Vol] 4.1 mmol/L 3.5 - 5.0 mmol/L [facility] Sodium [Moles/Vol] 136 mmol/L 135 - 145 mmol/L [facility] Urea nitrogen [Mass/Vol] 17 mg/dL 7 - 25 mg/dL [facility] Urea nitrogen/Creatinine [Mass ratio] 14 mg/mg [facility] CYTOLOGY, NON-GYNOrdered By: Sherice Jimenez on 09-03-2023 CYTOLOGIC DIAGNOSIS y5daqPSiHAEjwUBpSRAdK9twjpR nNTDlyGDeQ9JdviodPLxlDX5pWE 2suCyphZRzrBLzCEZcSjYce3kyd 120dSXzg5grHMWAuxucgTd0n7ti NNXAbZ1zz3h4tF66IUJikZ8nsCL ySWklraEdBRqzzfVflhYoRcx7KJ G9rOglZdeeyOA5mTUtcMD9WNlcs 4PtbHkanIbfKBQ7BDJdBkheWVzz lSY2gTFlfMgevLJwNF7kb4wwjJH 6mrLeIFR6dQiafLC4sMbhetvtk8 lltIN4eLO3ZWcdiOF6YWbgYrKfN 8wbUTBiiI6kG62wY1tlKIRqoTcb GVucGMKqsVG7ZLM8CWLjt8dfKKN nwXNrkEImErAvEVjlIye1o3swDB UpxB01cDHttvF9sBuuOPhdwOR8V T25AUzrz7IyIZMyxMhhBSEwkI3m YzIzXGxldmVsbmZjbjIzXGxldmV gfzNiCHhdvcYns4WfmvKceBO6LO cwhqMyrXS0nXmaKHVrL1E6K728U DhmsaMzplTfHpZqbaf2LHXqaTmy bGlzdGxldmVsXGxldmVsbmZjMjN mgPF8BBcmEvFcGoVncQF6NWzqRx ZwnFT1YRogdOIobAO1DLfvwEV2L Aw2CLg9CVfpTRadWzy8pIuebMM5 XNadgM5iLXHfP41yTkT2b7yamVR 1aGO7ZMcwoHO2VMzzFwMqA2fwUW WpwV8lR97vU2oyBOJjpPgrPQxmL MVrmMF8QOX1ZMSwb9bpJLNlcECj kZQhHhVzEJepClj3j0xpDVQvcW1 1bXThegB6jSciER96RHbsh2AxMA WfeUllMIGbuM4gKpAiFIpiwgGgk mZjbjIzXGxldmVsamMwXGxldmVs m0YlbnJyjJG4SRmifwUhnTA8hUu sDMFdX8X5N167ZJamkfAyzmAqVc Naabu4FOJsqFzznUmtdJqjkyNoX SexytAccoQiJoJnuBI7JZpuWjOp NeWtgWP7SHtmTlEpwWN9OHfccKO zqPN7LXotfRI7LSf0RLe1GAbpFW seLug9dOamqSI8XFamxB9fVGGxA 15bMfW6s6auqAZ5kEW9EOhjbVR7 HWsqOuMcQ2srKSWnxL0sP27dX1u jOEKlgIqqABprVPLxoWH0XLR6CB Tbo4ioPBWrwQLcjGAkCmTdWNrlL tl3s5irTYHhfK73lDItfoK7pFwa YP62WLcac6EkNVXrwZeuZYZhoN6 mYzIzXGxldmVsbmZjbjIzXGxldm MurvUoDNpvsoWkq5OysgDicDO3L EwodnQpjEE4qUfyWXTpM0D9Q119 MWzrbxUivkPpLgUzush8KLPplDm cbGlzdGxldmVsXGxldmVsbmZjMj NikUV3EJnvRaAeStTxzGS7FSfrD cQloXR8WQjexGVwmON9WFusoZT0 NFv1DKm8REztEHvxRfv6iMwvvQW 5MFjajZ9hYEKlJ54eMoS4zY93UU zxeVuaiR25ZWVclVAjsYMkqQH5M UjozVtqxC73KBIwwFQlTBytf6Wn DLQrGoL8PHF6HICjgJiamF23IKP dhWPlR095btZzXRzzVO04RLYrtZ ItjqLjUvJsSNSvjHFdoPQ2SOIqR O9zhutzPXnnGJuxXAXhmwG5RAHd sNMhT9JzOQXmCI5soryhYFN3IRq rYQJjTNE2AvSlZCYaf6Nqhmc2Pl PcjCo0a7fuJMEqTACiuDzil2seR FJ6TGGpzPTgW8mnlU5yWBXbCY9n rlwik0wgHMylESwbSGOisAH2naF 3MSRtoCFaY5JmjI5uKFUiANEgmr YlmGfmlP0wFxwlsrSvBGJlIWCMW tUXTg8FO1lTBLoVDW9NWSOzOSHB RCyGJLOKOZWDQWlPV4QYRWyZXfX xEDSuUIKeX9uSU0tZD6bmVolmBb WaXYzlGMWaRdJkG4ZcIXZllqaiW YIdVLCPYN0PAFAMTQSMRd6MFWE1 XNRvqubicXX2CBvopcSpuOl6yHU dlOdneS3hJijhmoWwLADrNTFYjt AQHWebX47izcLyG4HjeXEzBYHsE GmoWC85iXImRDNrqETlQGt8vH1a BLgkkZbuhyQFcMVcsR1zlztnNLa jZjBccGFyXGxpMFxsczBccGFyfQ == [facility] Work Phone: Case Report [facility] Work Phone: Clinical History f1labUXdFOZcxSZxGGWg N0stytR gRIAvyOPcA4CvrzfcWIirGM0oVQ 7wlZnspFWrlPGxHOFnTbQeb8zav 243dFTkn0qbXNEMqingiQl4fZdk A64al6U8UypwF7tuOYNkOAnfTMT pXRawgWPkGVa8JHKvkHYwfoUiJy YdKRXmzPKylHV8VYWnHB5yxyooW EwzUDasYFJvfmB2TRPqhKDpG5Sn HYRoFS0aydjjSDZ0ORimLVXdTDV 1PyMjGBFwi9Txalt0QzLsbKl5i2 qzMIJiPNEpkOpat4qsKLU9UTRme XGpS6nytL6kCTMsTZ5elunvg8io LSlmCWmmSIWaaSF6veT5EARvfWB sP9NuxJ7sMVAeXFZswcAmeHvwyY 5cZnMyMFxjZjEgUmVuYWwgdHJhb eFzmWJwqT6yMDJkqm2= [facility] Work Phone: For Immediate Release to Patient's MyChart? Yes Yes [facility] Work Phone: Gross Description n1qdoLIrRWVezMKhGPOp W3xhmnG nUQGkuFNqW0DyhgujACknCO0qWD 5nrYcdeSJobZTiBOSnAlEjn8kxi 904fGEig9axTJMMmytinBl4bKna A69kj6F5OgcaA30obNBeRQI8SJN oPGLtxJTkBLZuSTU5EJHqaSAtB1 haYUWgJO2jpvbeECfcQDocAHXic ZY0SHIabRPeE1QeBUIfLYroKTUe tzr8MoQuNw1lrFXleOzeXJnzYXE kXHBsYWluXGZzMjAgTExMIEJBTF emYQYcAXCesMQhFHp7NBYxlD6vj IYqkmVwfEFojT5fgYbvDQgvTDVu ZGNANXSafXyaVDIIVBSto7MuzR1 ccGFyXHBhcmRccGFyXHBhcn0= [facility] Work Phone: [facility] Work Phone: HEPATIC FUNCTION PANELon Albumin [Mass/Vol] 3.2 g/dL Low 3.5 - 5.0 g/dL [facility] ALP [Catalytic activity/Vol] 118 U/L 32 - 126 U/L [facility] ALT [Catalytic activity/Vol] 25 U/L 10 - 52 U/L [facility] AST [Catalytic activity/Vol] 32 U/L 10 - 39 U/L [facility] Bilirubin [Mass/Vol] 1.0 mg/dL NINF - 1.5 mg/dL [facility] Bilirubin.direct [Mass/Vol] 0.3 mg/dL High NINF - 0.3 mg/dL [facility] Protein [Mass/Vol] 6.5 g/dL 6.4 - 8.3 g/dL [facility] HISTOPLASMA AND BLASTOMYCES ANTIGEN, ENZYME IMMUNOASSAY, SERMon 09-03-2023 Histoplasma/Blastomy antonia Ag Result Detected Critically abnormal Not Detected [facility] Histoplasma/Blastomy antonia Ag Value 5.3 ng/mL [facility] Interpretation and review of laboratory results Abnormal [facility] MAGNESIUMon 09-03-2023 Interpretation and review of laboratory results Normal [facility] Magnesium [Mass/Vol] 1.6 mg/dL 1.6 - 2 .6 mg/dL [facility] No Panel Informationon 09-03 Interpretation and review of laboratory results Abnormal [facility] PARVOVIRUS (B19) DNA, PCR, B LOODon 09-03-2023 PARVOVIRUS B19 BY RAPID PCR Not detected Not Detected [facility] VT SPEC SOURCE Whole Blood [place] Portable XR Chest Viewson RADIOLOGY RADIOLOGY [facility] Radiology Study observation (narrative) [facility] Portable XR Chest ViewsOrder ed By: Lester Grove on 09-03-2023 [facility] Work Phone: ASPERGILLUS (GALACTOMANNAN), ANTIGENon 09-02-2023 Galactomannan Ag IA Qn <0.500 NINF [facility] ATYPICAL BACTERIAL PNEUMONIA ,PCROrdered By: Shari Contreras on 09-02-2023 B. parapertussis DNA ESTELITA+probe Ql (Unsp spec) Not detected Not Detected [facility] B. pertussis DNA ESTELITA+probe Ql (Unsp spec) Not detected Not Detected [facility] C. pneumoniae DNA ESTELITA+probe Ql (Unsp spec) Not detected Not Detected [facility] Interpretation and review of laboratory results Normal [facility] M. pneumoniae DNA ESTELITA+probe Ql (Unsp spec) Not detected Not Detected [facility] BRONCHOSCOPYon 09-02-2023 Radiology Study observation (narrative) [facility] Bacteria identified Cx Nom ( Bld)on 09-02-2023 Bacteria identified Cx Nom (Unsp spec) NO GROWTH DAY 5 OF 5 [facility] CBC,PLATELETSon 09-02-2023 Erythrocyte distribution width (RBC) [Ratio] 13.2 % 10.9 - 14.3 % [facility] Hematocrit (Bld) [Volume fraction] 39.9 % 39.6 - 48.8 % [facility] Hemoglobin (Bld) [Mass/Vol] 12.9 g/dL Low 13.4 - 16.8 g/dL [facility] Interpretation and review of laboratory results Abnormal [facility] MCH (RBC) [Entitic mass] 27.9 pg 26.1 - 33.3 pg [facility] MCHC (RBC) [Mass/Vol] 32.3 g/dL 31.9 - 36.5 g/dL [facility] MCV (RBC) [Entitic vol] 86.4 fL 79.0 - 94.5 fL [facility] Platelet mean volume (Bld) [Entitic vol] 9.5 fL 8.7 - 12.3 fL [facility] Platelets (Bld) [#/Vol] 210 10*3/uL 146 - 337 K/uL [facility] RBC (Bld) [#/Vol] 4.62 10*6/[facility] [#/Vol] 4.12 10*3/uL 3.73 - 10. 10 K/uL [facility] CHEM 7 (LYTES,BUN,CREA,GLUC) on 09-02-2023 Anion gap [Moles/Vol] 13 mmol/L 7 - 17 mmol/L [facility] Chloride [Moles/Vol] 105 mmol/L 98 - 10 8 mmol/L [facility] CO2 [Moles/Vol] 22 mmol/L 21 - 31 mmol/L [facility] Creatinine [Mass/Vol] 1.25 mg/dL 0.70 - 1.30 mg/dL [facility] eGFR, CKD-EPI, Male 69 - PINF [facility] Glucose [Mass/Vol] 105 mg/dL High 70 - 99 mg/dL [facility] Osmolality Calc [Osmolality] 287 [facility] Potassium [Moles/Vol] 4.3 mmol/L 3.5 - 5.0 mmol/L [facility] Sodium [Moles/Vol] 136 mmol/L 135 - 145 mmol/L [facility] Urea nitrogen [Mass/Vol] 16 mg/dL 7 - 25 mg/dL [facility] Urea nitrogen/Creatinine [Mass ratio] 13 mg/mg [facility] HEPATIC FUNCTION PANELon Albumin [Mass/Vol] 3.2 g/dL Low 3.5 - 5.0 g/dL [facility] ALP [Catalytic activity/Vol] 107 U/L 32 - 126 U/L [facility] ALT [Catalytic activity/Vol] 20 U/L 10 - 52 U/L [facility] AST [Catalytic activity/Vol] 31 U/L 10 - 39 U/L [facility] Bilirubin [Mass/Vol] 1.0 mg/dL NINF - 1.5 mg/dL [facility] Bilirubin.direct [Mass/Vol] 0.3 mg/dL High NINF - 0.3 mg/dL [facility] Protein [Mass/Vol] 6.6 g/dL 6.4 - 8.3 g/dL [facility] HISTOPLASMA ANTIGEN,URINEon 09-02-2023 H. capsulatum Ag (U) [Mass/Vol] Not detected ng/mL [facility] H. capsulatum Ag IA Ql (U) Not detected Not Detected [facility] HIV 1 AND 2 ANTIBODIES/P24 A NTIGENOrdered By: Wilma Luque on 09-02-2023 HIV 1+2 Ab+HIV1 p24 Ag IA Ql Non-Reactive Non Reactive [facility] Interpretation and review of laboratory results Normal [facility] MAGNESIUMon 09-02-2023 Interpretation and review of laboratory results Normal [facility] Magnesium [Mass/Vol] 1.7 mg/dL 1.6 - 2 .6 mg/dL [facility] No Panel Informationon 09-02 Interpretation and review of laboratory results Abnormal [facility] TACROLIMUS LEVEL, TROUGH (VT E DRUG LEVEL)on 09-02-2023 Interpretation and review of laboratory results Normal [facility] Tacrolimus (Bld) [Mass/Vol] 4.2 ng/mL [facility] CBC,PLATELETSon 09-01-2023 Erythrocyte distribution width (RBC) [Ratio] 13.4 % 10.9 - 14.3 % [facility] Hematocrit (Bld) [Volume fraction] 38.9 % Low 39.6 - 48.8 % [facility] Hemoglobin (Bld) [Mass/Vol] 12.7 g/dL Low 13.4 - 16.8 g/dL [facility] Interpretation and review of laboratory results Abnormal [facility] MCH (RBC) [Entitic mass] 27.6 pg 26.1 - 33.3 pg [facility] MCHC (RBC) [Mass/Vol] 32.6 g/dL 31.9 - 36.5 g/dL [facility] MCV (RBC) [Entitic vol] 84.6 fL 79.0 - 94.5 fL [facility] Platelet mean volume (Bld) [Entitic vol] 9.4 fL 8.7 - 12.3 fL [facility] Platelets (Bld) [#/Vol] 209 10*3/uL 146 - 337 K/uL [facility] RBC (Bld) [#/Vol] 4.60 10*6/uL [facility] WBC (Bld) [#/Vol] 4.41 10*3/uL 3.73 - 10. 10 K/uL [facility] CHEM 7 (LYTES,BUN,CREA,GLUC) on 09-01-2023 Anion gap [Moles/Vol] 14 mmol/L 7 - 17 mmol/L [facility] Chloride [Moles/Vol] 103 mmol/L 98 - 10 8 mmol/L [facility] CO2 [Moles/Vol] 21 mmol/L 21 - 31 mmol/L [facility] Creatinine [Mass/Vol] 1.16 mg/dL 0.70 - 1.30 mg/dL [facility] eGFR, CKD-EPI, Male 77 - PINF [facility] Glucose [Mass/Vol] 117 mg/dL High 70 - 99 mg/dL [facility] Osmolality Calc [Osmolality] 285 [facility] Potassium [Moles/Vol] 4.2 mmol/L 3.5 - 5.0 mmol/L [facility] Sodium [Moles/Vol] 134 mmol/L Low 135 - 145 mmol/L [facility] Urea nitrogen [Mass/Vol] 18 mg/dL 7 - 25 mg/dL [facility] Urea nitrogen/Creatinine [Mass ratio] 16 mg/mg [facility] CRYPTOCOCCAL ANTIGENon 09-01 Cryptococcus sp Ag Ql (S) Negative Negative [facility] Interpretation and review of laboratory results Normal [facility] HEPATIC FUNCTION PANELon Albumin [Mass/Vol] 3.3 g/dL Low 3.5 - 5.0 g/dL [facility] ALP [Catalytic activity/Vol] 112 U/L 32 - 126 U/L [facility] ALT [Catalytic activity/Vol] 21 U/L 10 - 52 U/L [facility] AST [Catalytic activity/Vol] 29 U/L 10 - 39 U/L [facility] Bilirubin [Mass/Vol] 1.0 mg/dL NINF - 1.5 mg/dL [facility] Bilirubin.direct [Mass/Vol] 0.2 mg/dL NINF - 0.3 mg/dL [facility] Protein [Mass/Vol] 6.8 g/dL 6.4 - 8.3 g/dL [facility] L. pneumophila 1 Ag IA Ql (U )Ordered By: Carolin Miles on 09-01-2023 Interpretation and review of laboratory results Normal [facility] LEGIONELLA URINARY AGOrdered By: Carolin Miles on 09-01-2023 L. pneumophila 1 Ag IA Ql (U) Negative Negative [facility] MAGNESIUMon 09-01-2023 Interpretation and review of laboratory results Normal [facility] Magnesium [Mass/Vol] 1.6 mg/dL 1.6 - 2 .6 mg/dL [facility] No Panel Informationon 09-01 Interpretation and review of laboratory results Abnormal [facility] CBC,PLATELETSon 08-31-2023 Erythrocyte distribution width (RBC) [Ratio] 13.3 % 10.9 - 14.3 % [facility] Hematocrit (Bld) [Volume fraction] 39.4 % Low 39.6 - 48.8 % [facility] Hemoglobin (Bld) [Mass/Vol] 12.8 g/dL Low 13.4 - 16.8 g/dL [facility] Interpretation and review of laboratory results Abnormal [facility] MCH (RBC) [Entitic mass] 27.6 pg 26.1 - 33.3 pg [facility] MCHC (RBC) [Mass/Vol] 32.5 g/dL 31.9 - 36.5 g/dL [facility] MCV (RBC) [Entitic vol] 85.1 fL 79.0 - 94.5 fL [facility] Platelet mean volume (Bld) [Entitic vol] 9.6 fL 8.7 - 12.3 fL [facility] Platelets (Bld) [#/Vol] 228 10*3/uL 146 - 337 K/uL [facility] RBC (Bld) [#/Vol] 4.63 10*6/uL [facility] WBC (Bld) [#/Vol] 4.77 10*3/uL 3.73 - 10. 10 K/uL [facility] CHEM 7 (LYTES,BUN,CREA,GLUC) on 08-31-2023 Anion gap [Moles/Vol] 13 mmol/L 7 - 17 mmol/L [facility] Chloride [Moles/Vol] 102 mmol/L 98 - 10 8 mmol/L [facility] CO2 [Moles/Vol] 23 mmol/L 21 - 31 mmol/L [facility] Creatinine [Mass/Vol] 1.37 mg/dL High 0.70 - 1.30 mg/dL [facility] eGFR, CKD-EPI, Male 62 - PINF [facility] Glucose [Mass/Vol] 112 mg/dL High 70 - 99 mg/dL [facility] Osmolality Calc [O[facility]olality] [facility] Potassium [Moles/Vol] 4.4 mmol/L 3.5 - 5.0 mmol/L [facility] Sodium [Moles/Vol] 134 mmol/L Low 135 - 145 mmol/L [facility] Urea nitrogen [Mass/Vol] 16 mg/dL 7 - 25 mg/dL [facility] Urea nitrogen/Creatinine [Mass ratio] 12 mg/mg [facility] CT Abdomen and Pelvis WO con traston 08-31-2023 RADIOLOGY RADIOLOGY [facility] Rad[facility]narrative[facility] Pelvis WO con trastOrdered By: Chavez Larkin on 08-31-2023 [facility] Work Phone: CT Chest WO contraston 08-31 RADIOLOGY RADIOLOGY [facility] Radiology Study observation (narrative) [facility] CT Chest WO contrastOrdered By: Daisha Patterson on 08-31-2023 [facility] Work Phone: FERRITINon 08-31-2023 Ferritin [Mass/Vol] 409.0 ng/mL High 10.5 - 3 07.3 ng/mL [facility] Interpretation and review of laboratory results Abnormal [facility] HEPATIC FUNCTION PANELon Albumin [Mass/Vol] 3.3 g/dL Low 3.5 - 5.0 g/dL [facility] ALP [Catalytic activity/Vol] 113 U/L 32 - 126 U/L [facility] ALT [Catalytic activity/Vol] 25 U/L 10 - 52 U/L [facility] AST [Catalytic activity/Vol] 31 U/L 10 - 39 U/L [facility] Bilirubin [Mass/Vol] 1.1 mg/dL NINF - 1.5 mg/dL [facility] Bilirubin.direct [Mass/Vol] 0.3 mg/dL High NINF - 0.3 mg/dL [facility] Protein [Mass/Vol] 7.0 g/dL 6.4 - 8.3 g/dL [facility] MAGNESIUMon 08-31-2023 Interpretation and review of laboratory results Normal [facility] Magnesium [Mass/Vol] 1.7 mg/dL 1.6 - 2 .6 mg/dL [facility] No Panel Informationon 08-31 Interpretation and review of laboratory results Abnormal [facility] PROCALCITONINon 08-31-2023 Interpretation and review of laboratory results Normal [facility] Procalcitonin [Mass/Vol] 0.23 ng/mL NINF - 0.50 ng/mL [facility] TACROLIMUS LEVEL, TROUGH (VT E DRUG LEVEL)Ordered By: Yanira Marcum on 08-31-2023 Interpretation and review of laboratory results Normal [facility] Tacrolimus (Bld) [Mass/Vol] 5.9 ng/mL [facility] URINE CULTUREOrdered By: Jorge Lozano on 08-31-2023 Bacteria identified Cx Nom (Unsp spec) No Growth [facility] DARYL AURIS SCREEN BY PCRO rdered By: Mynor Alejandro on 08-30-2023 Daryl auris Screen by PCR Not detected Not Detected [facility] Interpretation and review of laboratory results Normal [facility] CBC,PLATELETSon 08-30-2023 Erythrocyte distribution width (RBC) [Ratio] 13.3 % 10.9 - 14.3 % [facility] Hematocrit (Bld) [Volume fraction] 41.3 % 39.6 - 48.8 % [facility] Hemoglobin (Bld) [Mass/Vol] 13.2 g/dL Low 13.4 - 16.8 g/dL [facility] Interpretation and review of laboratory results Abnormal [facility] MCH (RBC) [Entitic mass] 27.3 pg 26.1 - 33.3 pg [facility] MCHC (RBC) [Mass/Vol] 32.0 g/dL 31.9 - 36.5 g/dL [facility] MCV (RBC) [Entitic vol] 85.5 fL 79.0 - 94.5 fL [facility] Platelet mean volume (Bld) [Entitic vol] 9.2 fL 8.7 - 12.3 fL [facility] Platelets (Bld) [#/Vol] 235 10*3/uL 146 - 337 K/uL [facility] RBC (Bld) [#/Vol] 4.83 10*6/uL [facility] WBC (Bld) [#/Vol] 4.96 10*3/uL 3.73 - 10. 10 K/uL [facility] CHEM 7 (LYTES,BUN,CREA,GLUC) on 08-30-2023 Anion gap [Moles/Vol] 14 mmol/L 7 - 17 mmol/L [facility] Chloride [Moles/Vol] 102 mmol/L 98 - 10 8 mmol/L [facility] CO2 [Moles/Vol] 20 mmol/L Low 21 - 31 mmol/L [facility] Creatinine [Mass/Vol] 1.56 mg/dL High 0.70 - 1.30 mg/dL [facility] eGFR, CKD-EPI, Male 54 Low - PINF [facility] Glucose [Mass/Vol] 123 mg/dL High 70 - 99 mg/dL [facility] Osmolality Calc [O[facility]olality] [facility] Potassium [Moles/Vol] 4.3 mmol/L 3.5 - 5.0 mmol/L [facility] Sodium [Moles/Vol] 132 mmol/L Low 135 - 145 mmol/L [facility] Urea nitrogen [Mass/Vol] 16 mg/dL 7 - 25 mg/dL [facility] Urea nitrogen/Creatinine [Mass ratio] 10 mg/mg [facility] EXTRA MICROon 08-30-2023 [facility] HEPATIC FUNCTION PANELon Albumin [Mass/Vol] 3.7 g/dL 3.5 - 5.0 g/dL [facility] ALP [Catalytic activity/Vol] 115 U/L 32 - 126 U/L [facility] ALT [Catalytic activity/Vol] 22 U/L 10 - 52 U/L [facility] AST [Catalytic activity/Vol] 34 U/L 10 - 39 U/L [facility] Bilirubin [Mass/Vol] 1.2 mg/dL NINF - 1.5 mg/dL [facility] Bilirubin.direct [Mass/Vol] 0.3 mg/dL High NINF - 0.3 mg/dL [facility] Protein [Mass/Vol] 7.7 g/dL 6.4 - 8.3 g/dL [facility] MAGNESIUMon 08-30-2023 Interpretation and review of laboratory results Normal [facility] Magnesium [Mass/Vol] 1.8 mg/dL 1.6 - 2 .6 mg/dL [facility] No Panel Informationon 08-30 Interpretation and review of laboratory results Abnormal [facility] CBC,PLATELETSon 08-29-2023 Erythrocyte distribution width (RBC) [Ratio] 13.4 % 10.9 - 14.3 % [facility] Hematocrit (Bld) [Volume fraction] 37.6 % Low 39.6 - 48.8 % [facility] Hemoglobin (Bld) [Mass/Vol] 12.2 g/dL Low 13.4 - 16.8 g/dL [facility] Interpretation and review of laboratory results Abnormal [facility] MCH (RBC) [Entitic mass] 27.6 pg 26.1 - 33.3 pg [facility] MCHC (RBC) [Mass/Vol] 32.4 g/dL 31.9 - 36.5 g/dL [facility] MCV (RBC) [Entitic vol] 85.1 fL 79.0 - 94.5 fL [facility] Platelet mean volume (Bld) [Entitic vol] 9.4 fL 8.7 - 12.3 fL [facility] Platelets (Bld) [#/Vol] 233 10*3/uL 146 - 337 K/uL [facility] RBC (Bld) [#/Vol] 4.42 10*6/uL [facility] WBC (Bld) [#/Vol] 4.92 10*3/uL 3.73 - 10. 10 K/uL [facility] CHEM 7 (LYTES,BUN,CREA,GLUC) on 08-29-2023 Anion gap [Moles/Vol] 13 mmol/L 7 - 17 mmol/L [facility] Chloride [Moles/Vol] 105 mmol/L 98 - 10 8 mmol/L [facility] CO2 [Moles/Vol] 20 mmol/L Low 21 - 31 mmol/L [facility] Creatinine [Mass/Vol] 1.55 mg/dL High 0.70 - 1.30 mg/dL [facility] eGFR, CKD-EPI, Male 55 Low - PINF [facility] Glucose [Mass/Vol] 108 mg/dL High 70 - 99 mg/dL [facility] Osmolality Calc [Osmolality] [facility] Potassium [Moles/Vol] 4.5 mmol/L 3.5 - 5.0 mmol/L [facility] Sodium [Moles/Vol] 133 mmol/L Low 135 - 145 mmol/L [facility] Urea nitrogen [Mass/Vol] 19 mg/dL 7 - 25 mg/dL [facility] Urea nitrogen/Creatinine [Mass ratio] 12 mg/mg [facility] GGTon 08-29-2023 Gamma glutamyl transferase [Catalytic activity/Vol] 64 U/L 8 - 64 U/L [facility] Interpretation and review of laboratory results Normal [facility] HEPATIC FUNCTION PANELon Albumin [Mass/Vol] 3.3 g/dL Low 3.5 - 5.0 g/dL [facility] ALP [Catalytic activity/Vol] 103 U/L 32 - 126 U/L [facility] ALT [Catalytic activity/Vol] 18 U/L 10 - 52 U/L [facility] AST [Catalytic activity/Vol] 27 U/L 10 - 39 U/L [facility] Bilirubin [Mass/Vol] 1.1 mg/dL [facility] - 1.5 mg/dL [facility] Bilirubin.direct [Mass/Vol] 0.3 mg/dL High NINF - 0.3 mg/dL [facility] Protein [Mass/Vol] 6.8 g/dL 6.4 - 8.3 g/dL [facility] MAGNESIUMon 08-29-2023 Interpretation and review of laboratory results Normal [facility] Magnesium [Mass/Vol] 1.7 mg/dL 1.6 - 2 .6 mg/dL [facility] No Panel Informationon 08-29 Interpretation and review of laboratory results Abnormal [facility] PT,INR,PTTon 08-29-2023 aPTT Coag (PPP) [Time] 29.3 s [facility] INR Coag (Bld) [Relative time] 1.1 {INR} 0.9 - 1.1 [facility] Interpretation and review of laboratory results Normal [facility] PT Coag (PPP) [Time] 13.8 s [facility] Portable XR Chest Viewson RADIOLOGY RADIOLOGY [facility] Portable XR Chest ViewsOrder ed By: Gerald Baer on 08-29-2023 [facility] Work Phone: TACROLIMUS LEVEL, TROUGH (VT E DRUG LEVEL)on 08-29-2023 Interpretation and review of laboratory results Normal [facility] Tacrolimus (Bld) [Mass/Vol] 8.9 ng/mL [facility] TACROLIMUS LEVEL, TROUGH (VT E DRUG LEVEL)Ordered By: Roxanne Louie on 08-29-2023 Interpretation and review of laboratory results Normal [facility] Tacrolimus (Bld) [Mass/Vol] 8.7 ng/mL [facility] URINALYSIS REFLEX TO CULTURE PERFORMABLEOrdered By: Shaji Kelly on 08-29-2023 Appearance (U) Clear Clear [facility] Bacteria LM Ql (Urine sed) ABSENT ABSENT [facility] Calcium Oxalate Crystals PRESENT [facility] Color (U) Yellow Yellow [facility] Epithelial cells.squamous LM Ql (Urine sed) 0-2/hpf 0-2/hpf, 3-5/hpf = 1+ [facility] Glucose Test strip (U) [Mass/Vol] Negative Negative [facility] Interpretation and review of laboratory results Abnormal [facility] Ketones (U) [Mass/Vol] Negative Negative [facility] Leukocyte esterase Test strip Ql (U) Negative Negative [facility] Nitrite Ql (U) Negative Negative [facility] pH (U) 6.0 [pH] 5.0 - [facility] Protein (U) [Mass/Vol] Negative Negative [facility] RBC (U) [#/Vol] Trace Abnormal Negative [facility] RBC LM.HPF (Urine sed) [#/Area] 3-5 Abnormal [facility] Specific gravity (U) [Rel density] 1.015 1.001 - 1.035 [facility] Urobilinogen (U) [Mass/Vol] 1.0 E.U./dL 0.2 E.U/dL, 1.0 E.U/dL [facility] WBC LM.HPF (Urine sed) [#/Area] 0 - 5 [facility] US for transplanted kidney l imitedon 08-29-2023 RADIOLOGY RADIOLOGY [facility] Radiology Study observation (narrative) [facility] US for transplanted kidney l imitedOrdered By: Romana Matias on 08-29-2023 [facility] Work Phone: CBC AND ELECTRONIC DIFFon Basophils (Bld) [#/Vol] K/uL 0.00 - 0.09 K/uL [facility] Basophils/100 WBC (Bld) 0.6 % [facility] Differential cell count method Nom (Bld) Electronic Differential [facility] Eosinophils (Bld) [#/Vol] 0.10 10*3/uL 0.00 - 0.48 K/uL [facility] Eosinophils/100 WBC (Bld) 2.1 % [facility] Erythrocyte distribution width (RBC) [Ratio] 13.4 % 10.9 - 14.3 % [facility] Hematocrit (Bld) [Volume fraction] 37.9 % Low 39.6 - 48.8 % [facility] Hemoglobin (Bld) [Mass/Vol] 12.4 g/dL Low 13.4 - 16.8 g/dL [facility] Immature granulocytes (Bld) [#/Vol] K/uL NINF - 0.07 K/uL [facility] Immature granulocytes/100 WBC (Bld) 0.6 % [facility] Interpretation and review of laboratory results Abnormal [facility] Lymphocytes (Bld) [#/Vol] 1.76 10*3/uL 0.83 - 3.57 K/uL [facility] Lymphocytes/100 WBC (Bld) 37.1 % [facility] MCH (RBC) [Entitic mass] 27.8 pg 26.1 - 33.3 pg [facility] MCHC (RBC) [Mass/Vol] 32.7 g/dL 31.9 - 36.5 g/dL [facility] MCV (RBC) [Entitic vol] 85.0 fL 79.0 - 94.5 fL [facility] Monocytes (Bld) [#/Vol] 0.66 10*3/uL 0.24 - 0.93 K/uL [facility] Monocytes/100 WBC (Bld) 13.9 % [facility] Neutrophils (Bld) [#/Vol] 2.16 10*3/uL 1.57 - 6.19 K/uL [facility] Nucleated RBC/100 WBC (Bld) [Ratio] 0.0 % [facility] Platelet mean volume (Bld) [Entitic vol] 9.3 fL 8.7 - 12.3 fL [facility] Platelets (Bld) [#/Vol] 262 10*3/uL 146 - 337 K/uL [facility] RBC (Bld) [#/Vol] 4.46 10*6/uL [facility] Segmented neutrophils/100 WBC (Bld) 45.7 % [facility] WBC (Bld) [#/Vol] 4.74 10*3/uL 3.73 - 10. 10 K/uL [facility] CHEM 6 (LYTES, BUN CREA)on 0 08-28-2023 Anion gap [Moles/Vol] 13 mmol/L 7 - 17 mmol/L [facility] Chloride [Moles/Vol] 103 mmol/L 98 - 10 8 mmol/L [facility] CO2 [Moles/Vol] 22 mmol/L 21 - 31 mmol/L [facility] Creatinine [Mass/Vol] 1.62 mg/dL High 0.70 - 1.30 mg/dL [facility] eGFR, CKD-EPI, Male 51 Low - PINF [facility] Interpretation and review of laboratory results Abnormal [facility] Potassium [Moles/Vol] 4.3 mmol/L 3.5 - 5.0 mmol/L [facility] Sodium [Moles/Vol] 134 mmol/L Low 135 - 145 mmol/L [facility] Urea nitrogen [Mass/Vol] 22 mg/dL 7 - 25 mg/dL [facility] Urea nitrogen/Creatinine [Mass ratio] 14 mg/mg [facility] Portable XR Chest Viewson Radiology Study observation (narrative) [facility] Respiratory virus DNA+RNA NA A+probe Nom (Unsp spec)Ordered By: Dayami Harris on 08-28-2023 Adenovirus DNA ESTELITA+probe Nom (Unsp spec) Not detected Not Detected [facility] B. parapertussis DNA ESTELITA+probe Ql (Unsp spec) Not detected Not Detected [facility] B. pertussis DNA ESTELITA+probe Ql (Unsp spec) Not detected Not Detected [facility] C. pneumoniae DNA ESTELITA+probe Ql (Unsp spec) Not detected Not Detected [facility] FLUAV RNA ESTELITA+probe Ql (Unsp spec) Not detected Not Detected [facility] FLUBV RNA ESTELITA+probe Ql (Unsp spec) Not detected Not Detected [facility] HCoV 229E RNA ESTELITA+non-probe Ql (Nph) Not detected Not Detected [facility] HCoV HKU1 RNA ESTELITA+non-probe Ql (Nph) Not detected Not Detected [facility] HCoV NL63 RNA ESTELITA+non-probe Ql (Nph) Not detected Not Detected [facility] HCoV OC43 RNA ESTELITA+non-probe Ql (Nph) Not detected Not Detected [facility] hMPV A RNA ESTELITA+probe Ql (Unsp spec) Not detected Not Detected [facility] Interpretation and review of laboratory results Normal [facility] M. pneumoniae DNA ESTELITA+probe Ql (Unsp spec) Not detected Not Detected [facility] Parainfluenza virus 1 RNA ESTELITA+probe Ql (Unsp spec) Not detected Not Detected [facility] Parainfluenza virus 2 RNA ESTELITA+probe Ql (Unsp spec) Not detected Not Detected [facility] Parainfluenza virus 3 RNA ESTELITA+probe Ql (Unsp spec) Not detected Not Detected [facility] Parainfluenza virus 4 RNA ESTELITA+probe Ql (Unsp spec) Not detected Not Detected [facility] Rhinovirus+Enterovir us RNA ESTELITA+probe Ql (Unsp spec) Not detected Not Detected [facility] RSV RNA ESTELITA+probe Ql (Unsp spec) Not detected Not Detected [facility] SARS-CoV-2 (COVID-19) RNA ESTELITA+probe Ql (Unsp spec) Not detected NOT DETECTED [facility] ALBUMINon 04-28-2023 Albumin [Mass/Vol] 4.0 g/dL Normal 3.4-5.0 [facility] Comment on above: Performed By: #### C MP #### [facility] [address] [place] [address] Dr. Dwight Waters ALKALINE PHOSPHAon ALP [Catalytic activity/Vol] 106 U/L Normal 46-116 [facility] Comment on above: Performed By: #### F [id number] #### [facility] [address] [address] [address] Dwight Waters BILIRUBIN CONJUGATED (DIRECT )on 04-28-2023 BILI, CONJUGATED 0.3 mg/dL Critically high 0.0-0.2 [facility] Comment on above: Performed By: #### C MP #### [facility] [address] [place] [address] Dr. Dwight Waters BILIRUBIN TOTALon 04-28-2023 Bilirubin [Mass/Vol] 1.4 mg/dL Critically high 0.2-1.0 [facility] Comment on above: Performed By: #### C MP #### [facility] [address] [place] [address] Dr. Dwight Waters BUNon 04-28-2023 Urea nitrogen [Mass/Vol] 12.0 mg/dL Normal 7.0-18.0 [facility] Comment on above: Performed By: #### U RTPCR #### [facility] [address] [place] [address] Dr. Dwight Waters CALCIUMon 04-28-2023 Calcium [Mass/Vol] 9.3 mg/dL Normal 8.5-10.1 [facility] Comment on above: Performed By: #### U RTPCR #### [facility] [address] [place] [address] Dr. Dwight Waters CBC AUTO DIFFon 04-28-2023 BASO # 0.1 103/ul Normal 0.0-0.1 [facility] Comment on above: Performed By: #### C BC #### [facility] [address] [place] [address] Dr. Dwight Waters Basophils/100 WBC (Bld) 0.9 % Normal 0.2-2.0 [facility] Comment on above: Performed By: #### C BC #### [facility] [address] [place] [address] Dr. Dwight Waters EO # 0.2 103/ul Normal 0.0-0.7 [facility] Comment on above: Performed By: #### C BC #### [facility] [address] [place] [address] Dr. Dwight Waters Eosinophils/100 WBC (Bld) 3.8 % Normal 0.9-7.0 [facility] Comment on above: Performed By: #### C BC #### [facility] [address] [place] [address] Dr. Dwight Waters Erythrocyte distribution width (RBC) [Ratio] 12.5 % Normal 11.0-15.0 [facility] Comment on above: Performed By: #### C BC #### [facility] [address] [place] [address] Dr. Dwight Waters Hematocrit (Bld) [Volume fraction] 49.8 % Normal 42.0-54.0 [facility] Comment on above: Performed By: #### C BC #### [facility] [address] [place] [address] Dr. Dwight Waters Hemoglobin (Bld) [Mass/Vol] 16.4 g/dL Normal 14.0-18.0 [facility] Comment on above: Performed By: #### C BC #### [facility] [address] [place] [address] Dr. Dwight Waters IG # 0.01 10e3/ul Normal 0.00-0.03 [facility] Comment on above: Performed By: #### C BC #### [facility] [address] [place] [address] Dr. Dwight Waters IG % 0.2 % Normal 0.0-0.5 [facility] Comment on above: Performed By: #### C BC #### [facility] [address] [place] [address] Dr. Dwight Waters LYMPH # 2.1 103/ul Normal 1.2-3.8 [facility] Comment on above: Performed By: #### C BC #### [facility] [address] [place] [address] Dr. Dwight Waters Lymphocytes/100 WBC (Bld) 39.1 % Normal 20.5-60.0 [facility] Comment on above: Performed By: #### C BC #### [facility] [address] [place] [address] Dr. Dwight Waters MANUAL DIFF REQ NO Normal [facility] Comment on above: Performed By: #### C BC #### [facility] [address] [place] [address] Dr. Dwight Waters MCH (RBC) [Entitic mass] 28.6 pg Normal 25.9-34.0 [facility] Comment on above: Performed By: #### C BC #### [facility] [address] [place] [address] Dr. Dwight Waters MCHC (RBC) [Mass/Vol] 32.9 g/dL Normal 29.9-35.2 [facility] Comment on above: Performed By: #### C BC #### [facility] [address] [place] [address] Dr. Dwight Waters MCV (RBC) [Entitic vol] 86.9 fL Normal 80.0-94.0 [facility] Comment on above: Performed By: #### C BC #### [facility] [address] [place] [address] Dr. Dwight Waters MONO # 0.6 103/ul Normal 0.3-0.8 [facility] Comment on above: Performed By: #### C BC #### [facility] [address] [place] [address] Dr. Dwight Waters Monocytes/100 WBC (Bld) 10.6 % Normal 1.7-12.0 [facility] Comment on above: Performed By: #### C BC #### [facility] [address] [place] [address] Dr. Dwight Waters NEUT # 2.5 103/ul Normal 1.4-6.5 [facility] Comment on above: Performed By: #### C BC #### [facility] [address] [place] [address] Dr. Dwight Waters Neutrophils/100 WBC (Bld) 45.4 % Normal 43.0-75.0 [facility] Comment on above: Performed By: #### C BC #### [facility] [address] [place] [place] [address] Dr. Dwight Waters Platelet mean volume (Bld) [Entitic vol] 9.3 fL Critically low 9.5-13.5 [facility] Comment on above: Performed By: #### C BC #### [facility] [address] [place] [address] Dr. Dwight Waters PLT 248 103/ul Normal 150-450 [facility] Comment on above: Performed By: #### C BC #### [facility] [address] [place] [address] Dr. Dwight Waters RBC 5.73 106/ul Normal 4.70-6.10 [facility] Comment on above: Performed By: #### C BC #### [facility] [address] [place] [address] Dr. Dwight Waters WBC 5.5 103/ul Normal 4.0-11.0 [facility] Comment on above: Performed By: #### C BC #### [facility] [address] [place] [address] Dr. Dwight Waters CHLORIDEon 04-28-2023 Chloride [Moles/Vol] 107 mmol/L Normal 98-107 [facility] Comment on above: Performed By: #### U RTPCR #### [facility] [address] [place] [address] Dr. Dwight Waters CO2on 04-28-2023 CO2 [Moles/Vol] 28.9 mmol/L Normal 21.0-32.0 [facility] Comment on above: Performed By: #### U RTPCR #### [facility] [address] [place] [address] Dr. Dwight Waters CREATININEon 04-28-2023 Creatinine [Mass/Vol] 1.17 mg/dL Normal 0.70-1.30 [facility] Comment on above: Performed By: #### U RTPCR #### [facility] [address] [place] [address] Dr. Dwight Waters EGFR-AF LIBYAN >60 Normal >=60 [facility] Comment on above: Performed By: #### U RTPCR #### [facility] [address] [place] [address] Dr. Dwight Waters EGFR-NON AF LIBYAN >60 Normal >=60 [facility] Comment on above: Performed By: #### U RTPCR #### [facility] [address] [place] [address] Dr. Dwight Waters GGTon 04-28-2023 Gamma glutamyl transferase [Catalytic activity/Vol] 27 U/L Normal 15-85 [facility] Comment on above: Performed By: #### U RTPCR #### [facility] [address] [place] [address] Dr. Dwight Waters GLUCOSE BLOODon 04-28-2023 Glucose [Mass/Vol] 110 mg/dL Critically high 74-106 [facility] Comment on above: Performed By: #### U RTPCR #### [facility] [address] [place] [address] Dr. Dwight Waters MAGNESIUMon 04-28-2023 Magnesium [Mass/Vol] 1.7 mg/dL Critically low 1.8-2.4 [facility] Comment on above: Performed By: #### U RTPCR #### [facility] [address] [place] [address] Dr. Dwight Waters NAon 04-28-2023 Sodium [Moles/Vol] 144 mmol/L Normal 136-145 [facility] Comment on above: Performed By: #### U RTPCR #### [facility] [address] [place] [address] Dr. Dwight Waters PHOSPHORUSon 04-28-2023 Phosphate [Mass/Vol] 3.2 mg/dL Normal 2.6-4.7 [facility] Comment on above: Performed By: #### U RTPCR #### [facility] [address] [place] [address] Dr. Dwight Waters POTASSIUMon 04-28-2023 Potassium [Moles/Vol] 4.0 mmol/L Normal 3.5-5.1 [facility] Comment on above: Performed By: #### U RTPCR #### [facility] [address] [place] [address] Dr. Dwight Waters SGOTon 04-28-2023 AST [Catalytic activity/Vol] 25 U/L Normal 15-37 [facility] Comment on above: Performed By: #### C MP #### [facility] [address] [place] [address] Dr. Dwight Waters SGPTon 04-28-2023 ALT [Catalytic activity/Vol] 40 U/L Normal 16-63 [facility] Comment on above: Performed By: #### C MP #### [facility] [address] [place] [address] Dr. Dwight Waters URINE T PROTEIN CREAT RATIOo n 04-28-2023 Protein (U) [Mass/Vol] 10.1 mg/dL Normal <=12.0 [facility] Comment on above: Performed By: #### U RTPCR #### [facility] [address] [place] [address] Dr. Dwight Waters UR PROT CREAT RAT 0.14 Normal [facility] Comment on above: Performed By: #### U RTPCR #### [facility] [address] [place] [address] Dr. Dwight Waters URINE CREAT 74.40 mg/dL Normal 20.00-300.00 [facility] Comment on above: Performed By: #### U RTPCR #### [facility] [address] [place] [address] Dr. Dwight Waters BK VIRUS PCR QUANTon 023 BKV DNA QUANT PCR PLASMA Negative Normal Negative [facility] Comment on above: Result Comment: No B K DNA detected. . The linear range of the assay is 22 - 100,000,000 IU/mL. Performed By: #### B KVIRUS #### [facility] [address] [place] [address] Dr. Dwight Waters Log10 BKV DNA Plasma Normal [facility] Comment on above: Performed By: #### B KVIRUS #### [facility] [address] [place] [address] Dr. Dwight Waters FK506 (TACROLIMUS) WHOLE BLO ODon 03-04-2023 Tacrolimus (FK506), Blood 5.9 ng/mL Normal 2.0-20.0 [facility] Comment on above: Result Comment: Trou gh (immediately following transplant) 15.0 . Trough (steady state, 2 weeks or more after transplant): 3.0 - 8.0 . Performed by LC-MS/MS technology. Performed By: #### C MP #### [facility] [address] [place] [address] Dr. Dwight Waters ALBUMINon 03-02-2023 Albumin [Mass/Vol] 3.9 g/dL Normal 3.4-5.0 [facility] Comment on above: Performed By: #### U RTPCR #### [facility] [address] [place] [address] Dr. Dwight Waters ALKALINE PHOSPHAon ALP [Catalytic activity/Vol] 105 U/L Normal 46-116 [facility] Comment on above: Performed By: #### U RTPCR #### [facility] [address] [place] [address] Dr. Dwight Waters BILIRUBIN CONJUGATED (DIRECT )on 03-02-2023 BILI, CONJUGATED 0.2 mg/dL Normal 0.0-0.2 [facility] Comment on above: Performed By: #### U RTPCR #### [facility] [address] [place] [address] Dr. Dwight Waters BILIRUBIN TOTALon 03-02-2023 Bilirubin [Mass/Vol] 0.9 mg/dL Normal 0.2-1.0 [facility] Comment on above: Performed By: #### U RTPCR #### [facility] [address] [place] [address] Dr. Dwight Waters CBC AUTO DIFFon 03-02-2023 BASO # 0.1 103/ul Normal 0.0-0.1 [facility] Comment on above: Performed By: #### C BC #### [facility] [address] [place] [address] Dr. Dwight Waters Basophils/100 WBC (Bld) 0.9 % Normal 0.2-2.0 [facility] Comment on above: Performed By: #### C BC #### [facility] [address] [place] [address] Dr. Dwight Waters EO # 0.2 103/ul Normal 0.0-0.7 [facility] Comment on above: Performed By: #### C BC #### [facility] [address] [place] [address] Dr. Dwight Waters Eosinophils/100 WBC (Bld) 3.5 % Normal 0.9-7.0 [facility] Comment on above: Performed By: #### C BC #### [facility] [address] [place] [address] Dr. Dwight Waters Erythrocyte distribution width (RBC) [Ratio] 12.7 % Normal 11.0-15.0 [facility] Comment on above: Performed By: #### C BC #### [facility] [address] [place] [address] Dr. Dwight Waters Hematocrit (Bld) [Volume fraction] 48.2 % Normal 42.0-54.0 [facility] Comment on above: Performed By: #### C BC #### [facility] [address] [place] [address] Dr. Dwight Waters Hemoglobin (Bld) [Mass/Vol] 15.9 g/dL Normal 14.0-18.0 [facility] Comment on above: Performed By: #### C BC #### [facility] [address] [place] [address] Dr. Dwight Waters IG # 0.01 10e3/ul Normal 0.00-0.03 [facility] Comment on above: Performed By: #### C BC #### [facility] [address] [place] [address] Dr. Dwight Waters IG % 0.2 % Normal 0.0-0.5 [facility] Comment on above: Performed By: #### C BC #### [facility] [address] [place] [address] Dr. Dwight Waters LYMPH # 2.1 103/ul Normal 1.2-3.8 [facility] Comment on above: Performed By: #### C BC #### [facility] [address] [place] [address] Dr. Dwight Waters Lymphocytes/100 WBC (Bld) 37.4 % Normal 20.5-60.0 [facility] Comment on above: Performed By: #### C BC #### [facility] [address] [place] [address] Dr. Dwight Waters MANUAL DIFF REQ NO Normal [facility] Comment on above: Performed By: #### C BC #### [facility] [address] [address] [address] Dwight Waters MCH (RBC) [Entitic mass] 28.3 pg Normal 25.9-34.0 [facility] Comment on above: Performed By: #### C BC #### [facility] [address] [place] [address] Dr. Dwight Waters MCHC (RBC) [Mass/Vol] 33.0 g/dL Normal 29.9-35.2 [facility] Comment on above: Performed By: #### C BC #### [facility] [address] [place] [address] Dr. Dwight Waters MCV (RBC) [Entitic vol] 85.8 fL Normal 80.0-94.0 [facility] Comment on above: Performed By: #### C BC #### [facility] [address] [place] [address] Dr. Dwight Waters MONO # 0.6 103/ul Normal 0.3-0.8 [facility] Comment on above: Performed By: #### C BC #### [facility] [address] [place] [address] Dr. Dwight Waters Monocytes/100 WBC (Bld) 10.2 % Normal 1.7-12.0 [facility] Comment on above: Performed By: #### C BC #### [facility] [address] [place] [address] Dr. Dwight Waters NEUT # 2.7 103/ul Normal 1.4-6.5 [facility] Comment on above: Performed By: #### C BC #### [facility] [address] [place] [address] Dr. Dwight Waters Neutrophils/100 WBC (Bld) 47.8 % Normal 43.0-75.0 [facility] Comment on above: Performed By: #### C BC #### [facility] [address] [place] [address] Dr. Dwight Waters Platelet mean volume (Bld) [Entitic vol] 9.3 fL Critically low 9.5-13.5 [facility] Comment on above: Performed By: #### C BC #### [facility] [address] [place] [address] Dr. Dwight Waters PLT 241 103/ul Normal 150-450 [facility] Comment on above: Performed By: #### C BC #### [facility] [address] [place] [address] Dr. Dwight Waters RBC 5.62 106/ul Normal 4.70-6.10 [facility] Comment on above: Performed By: #### C BC #### [facility] [address] [place] [address] Dr. Dwight Waters WBC 5.7 103/ul Normal 4.0-11.0 [facility] Comment on above: Performed By: #### C BC #### [facility] [address] [place] [address] Dr. Dwight Waters GGTon 03-02-2023 Gamma glutamyl transferase [Catalytic activity/Vol] 25 U/L Normal 15-85 [facility] Comment on above: Performed By: #### U RTPCR #### [facility] [address] [place] [address] Dr. Dwihgt Waters MAGNESIUMon 03-02-2023 Magnesium [Mass/Vol] 1.6 mg/dL Critically low 1.8-2.4 [facility] Comment on above: Performed By: #### U RTPCR #### [facility] [address] [place] [address] Dr. Dwight Waters PHOSPHORUSon 03-02-2023 Phosphate [Mass/Vol] 3.6 mg/dL Normal 2.6-4.7 [facility] Comment on above: Performed By: #### U RTPCR #### [facility] [address] [place] [address] Dr. Dwight Waters PROF CHEM 8 (BAS METB)on Anion gap [Moles/Vol] 9.4 mmol/L Normal [facility] Comment on above: Performed By: #### U RTPCR #### [facility] [address] [place] [address] Dr. Dwight Waters Calcium [Mass/Vol] 9.3 mg/dL Normal 8.5-10.1 [facility] Comment on above: Performed By: #### U RTPCR #### [facility] [address] [address] [address] Dwight Waters Chloride [Moles/Vol] 108 mmol/L Critically high 98-107 [facility] Comment on above: Performed By: #### U RTPCR #### [facility] [address] [address] [address] Dwight Waters CO2 [Moles/Vol] 27.2 mmol/L Normal 21.0-32.0 [facility] Comment on above: Performed By: #### U RTPCR #### [facility] [address] [place] [address] Dr. Dwight Waters Creatinine [Mass/Vol] 1.12 mg/dL Normal 0.70-1.30 [facility] Comment on above: Performed By: #### U RTPCR #### [facility] [address] [place] [address] Dr. Dwight Waters EGFR-AF LIBYAN >60 Normal >=60 [facility] Comment on above: Performed By: #### U RTPCR #### [facility] [address] [place] [address] Dr. Dwgiht Waters EGFR-NON AF LIBYAN >60 Normal >=60 [facility] Comment on above: Performed By: #### U RTPCR #### [facility] [address] [place] [address] Dr. Dwight Waters Glucose [Mass/Vol] 113 mg/dL Critically high 74-106 [facility] Comment on above: Performed By: #### U RTPCR #### [facility] [address] [place] [address] Dr. Dwight Waters Potassium [Moles/Vol] 3.6 mmol/L Normal 3.5-5.1 [facility] Comment on above: Performed By: #### U RTPCR #### [facility] [address] [place] [address] Dr. Dwight Waters Sodium [Moles/Vol] 141 mmol/L Normal 136-145 [facility] Comment on above: Performed By: #### U RTPCR #### [facility] [address] [place] [address] Dr. Dwight Waters Urea nitrogen [Mass/Vol] 14.0 mg/dL Normal 7.0-18.0 [facility] Comment on above: Performed By: #### U RTPCR #### [facility] [address] [place] [address] Dr. Dwight Waters Urea nitrogen/Creatinine [Mass ratio] 12.5 mg/mg Normal [facility] Comment on above: Performed By: #### U RTPCR #### [facility] [address] [place] [address] Dr. Dwight OLVERAOTon 03-02-2023 AST [Catalytic activity/Vol] 20 U/L Normal 15-37 [facility] Comment on above: Performed By: #### U RTPCR #### [facility] [address] [place] [address] Dr. Dwight Waters SGPTon 03-02-2023 ALT [Catalytic activity/Vol] 30 U/L Normal 16-63 [facility] Comment on above: Performed By: #### U RTPCR #### [facility] [address] [place] [address] Dr. Dwight Waters URINE T PROTEIN CREAT RATIOo n 03-02-2023 Protein (U) [Mass/Vol] 10.3 mg/dL Normal <=12.0 [facility] Comment on above: Performed By: #### U RTPCR #### [facility] [address] [place] [address] Dr. Dwigth Waters UR PROT CREAT RAT 0.15 Normal [facility] Comment on above: Performed By: #### U RTPCR #### [facility] [address] [place] [address] Dr. Dwight Waters URINE CREAT 68.96 mg/dL Normal 20.00-300.00 [facility] Comment on above: Performed By: #### U RTPCR #### [facility] [address] [place] [address] Dr. Dwight Waters BK VIRUS PCR QUANTon 023 BKV DNA QUANT PCR PLASMA Negative Normal Negative [facility] Comment on above: Result Comment: No B K DNA detected. . The linear range of the assay is 22 - 100,000,000 IU/mL. Performed By: #### C MP #### [facility] [address] [place] [address] Dr. Dwight Waters Log10 BKV DNA Plasma Normal [facility] Comment on above: Performed By: #### C MP #### [facility] [address] [place] [address] Dr. Dwight Waters FK506 (TACROLIMUS) WHOLE BLO ODon 12-31-2022 Tacrolimus (FK506), Blood 5.6 ng/mL Normal 2.0-20.0 [facility] Comment on above: Result Comment: Trou gh (immediately following transplant) 15.0 . Trough (steady state, 2 weeks or more after transplant): 3.0 - 8.0 . Performed by LC-MS/MS technology. Performed By: #### C MP #### [facility] [address] [place] [address] Dr. Dwight Waters ALKALINE PHOSPHAon ALP [Catalytic activity/Vol] 96 U/L Normal 46-116 [facility] Comment on above: Performed By: #### C BC #### [facility] [address] [place] [address] Dr. Dwight Waters BILIRUBIN CONJUGATED (DIRECT )on 12-29-2022 BILI, CONJUGATED 0.3 mg/dL Critically high 0.0-0.2 [facility] Comment on above: Performed By: #### C BC #### [facility] [address] [place] [address] Dr. Dwight Waters BILIRUBIN TOTALon 12-29-2022 Bilirubin [Mass/Vol] 1.1 mg/dL Critically high 0.2-1.0 [facility] Comment on above: Performed By: #### C BC #### [facility] [address] [place] [address] Dr. Dwight Waters CBC AUTO DIFFon 12-29-2022 BASO # 0.1 103/ul Normal 0.0-0.1 [facility] Comment on above: Performed By: #### C MP #### [facility] [address] [place] [address] Dr. Dwight Waters Basophils/100 WBC (Bld) 0.8 % Normal 0.2-2.0 [facility] Comment on above: Performed By: #### C MP #### [facility] [address] [place] [address] Dr. Dwight Waters EO # 0.2 103/ul Normal 0.0-0.7 [facility] Comment on above: Performed By: #### C MP #### [facility] [address] [place] [address] Dr. Dwight Waters Eosinophils/100 WBC (Bld) 3.0 % Normal 0.9-7.0 [facility] Comment on above: Performed By: #### C MP #### [facility] [address] [place] [address] Dr. Dwight Waters Erythrocyte distribution width (RBC) [Ratio] 12.9 % Normal 11.0-15.0 [facility] Comment on above: Performed By: #### C MP #### [facility] [address] [place] [address] Dr. Dwight Waters Hematocrit (Bld) [Volume fraction] 46.9 % Normal 42.0-54.0 [facility] Comment on above: Performed By: #### C MP #### [facility] [address] [place] [address] Dr. Dwight Waters Hemoglobin (Bld) [Mass/Vol] 16.1 g/dL Normal 14.0-18.0 [facility] Comment on above: Performed By: #### C MP #### [facility] [address] [place] [address] Dr. Dwight Waters IG # 0.01 10e3/ul Normal 0.00-0.03 [facility] Comment on above: Performed By: #### C MP #### [facility] [address] [place] [address] Dr. Dwight Waters IG % 0.2 % Normal 0.0-0.5 [facility] Comment on above: Performed By: #### C MP #### [facility] [address] [place] [address] Dr. Dwight Waters LYMPH # 1.8 103/ul Normal 1.2-3.8 [facility] Comment on above: Performed By: #### C MP #### [facility] [address] [place] [address] Dr. Dwight Waters Lymphocytes/100 WBC (Bld) 27.9 % Normal 20.5-60.0 [facility] Comment on above: Performed By: #### C MP #### [facility] [address] [place] [address] Dr. Dwight Waters MANUAL DIFF REQ NO Normal [facility] Comment on above: Performed By: #### C MP #### [facility] [address] [place] [address] Dr. Dwight Waters MCH (RBC) [Entitic mass] 28.5 pg Normal 25.9-34.0 [facility] Comment on above: Performed By: #### C MP #### [facility] [address] [place] [address] Dr. Dwight Waters MCHC (RBC) [Mass/Vol] 34.3 g/dL Normal 29.9-35.2 [facility] Comment on above: Performed By: #### C MP #### [facility] [address] [place] [address] Dr. Dwight Waters MCV (RBC) [Entitic vol] 83.2 fL Normal 80.0-94.0 [facility] Comment on above: Performed By: #### C MP #### [facility] [address] [place] [address] Dr. Dwight Waters MONO # 0.5 103/ul Normal 0.3-0.8 [facility] Comment on above: Performed By: #### C MP #### [facility] [address] [place] [address] Dr. Dwight Waters Monocytes/100 WBC (Bld) 8.1 % Normal 1.7-12.0 [facility] Comment on above: Performed By: #### C MP #### [facility] [address] [address] [address] Dwight Waters NEUT # 3.8 103/ul Normal 1.4-6.5 [facility] Comment on above: Performed By: #### C MP #### [facility] [address] [place] [address] Dr. Dwight Waters Neutrophils/100 WBC (Bld) 60.0 % Normal 43.0-75.0 [facility] Comment on above: Performed By: #### C MP #### [facility] [address] [place] [address] Dr. Dwight Waters Platelet mean volume (Bld) [Entitic vol] 9.2 fL Critically low 9.5-13.5 [facility] Comment on above: Performed By: #### C MP #### [facility] [address] [place] [address] Dr. Dwight Waters PLT 225 103/ul Normal 150-450 [facility] Comment on above: Performed By: #### C MP #### [facility] [address] [place] [address] Dr. Dwight Waters RBC 5.64 106/ul Normal 4.70-6.10 [facility] Comment on above: Performed By: #### C MP #### [facility] [address] [place] [address] Dr. Dwight Waters WBC 6.3 103/ul Normal 4.0-11.0 [facility] Comment on above: Performed By: #### C MP #### [facility] [address] [place] [address] Dr. Dwight Waters GGTon 12-29-2022 Gamma glutamyl transferase [Catalytic activity/Vol] 24 U/L Normal 15-85 [facility] Comment on above: Performed By: #### C MP #### [facility] [address] [place] [address] Dr. Dwight Waters LIPID PROFILEon 12-29-2022 CHOL-HDL RATIO NORM SEE BELOW Normal [facility] Comment on above: Result Comment: 3.3 - 4.4 LOW RISK 4.4 - 7.1 AVERAGE RISK 7.1 - 11.0 MODERATE RISK >11.0 HIGH RISK Performed By: #### U RTPCR #### [facility] [address] [place] [address] Dr. Dwight Waters Cholesterol [Mass/Vol] 87 mg/dL Normal <=200 [facility] Comment on above: Performed By: #### U RTPCR #### [facility] [address] [place] [address] Dr. Dwight Waters Cholesterol in HDL [Mass/Vol] 44 mg/dL Normal 40-60 [facility] Comment on above: Performed By: #### U RTPCR #### [facility] [address] [place] [address] Dr. Dwight Waters Cholesterol in LDL [Mass/Vol] 33.0 mg/dL Normal [facility] Comment on above: Performed By: #### U RTPCR #### [facility] [address] [place] [address] Dr. Dwight Waters Cholesterol.total/Ch olesterol in HDL [Mass ratio] 2.0 {ratio} Normal [facility] Comment on above: Performed By: #### U RTPCR #### [facility] [address] [place] [address] Dr. Dwight Waters HDL NORMAL > or = 60 mg/dl - LO W CARDIOVASCULAR RISK <40 mg/dl - HIGH CARDIOVASCULAR RISK Normal [facility] Comment on above: Performed By: #### U RTPCR #### [facility] [address] [place] [address] Dr. Dwight Waters LDL CALC NORMAL SEE BELOW Normal [facility] Comment on above: Result Comment: <100 mg/dl OPTIMAL 100 - 129 mg/dl NEAR OR ABOVE OPTIMAL 130 - 159 mg/dl BORDERLINE HIGH 160 - 189 mg/dl HIGH >190 mg/dl VERY HIGH Performed By: #### U RTPCR #### [facility] [address] [place] [address] Dr. Dwight Waters Triglyceride [Mass/Vol] 50 mg/dL Normal <=150 [facility] Comment on above: Performed By: #### U RTPCR #### [facility] [address] [place] [address] Dr. Dwight Waters VLDL CALC 10.0 mg/dL Normal [facility] Comment on above: Performed By: #### U RTPCR #### [facility] [address] [place] [address] Dr. Dwight Waters MAGNESIUMon 12-29-2022 Magnesium [Mass/Vol] 1.6 mg/dL Critically low 1.8-2.4 [facility] Comment on above: Performed By: #### C BC #### [facility] [address] [place] [address] Dr. Dwight Waters RENAL FUNCTION PANELon 12-29 Albumin [Mass/Vol] 3.9 g/dL Normal 3.4-5.0 [facility] Comment on above: Performed By: #### C BC #### [facility] [address] [place] [address] Dr. Dwight Waters Calcium [Mass/Vol] 9.2 mg/dL Normal 8.5-10.1 [facility] Comment on above: Performed By: #### C BC #### [facility] [address] [place] [address] Dr. Dwight Waters Chloride [Moles/Vol] 109 mmol/L Critically high 98-107 [facility] Comment on above: Performed By: #### C BC #### [facility] [address] [place] [address] Dr. Dwight Waters CO2 [Moles/Vol] 27.0 mmol/L Normal 21.0-32.0 [facility] Comment on above: Performed By: #### C BC #### [facility] [address] [place] [address] Dr. Dwight Waters Creatinine [Mass/Vol] 1.02 mg/dL Normal 0.70-1.30 [facility] Comment on above: Performed By: #### C BC #### [facility] [address] [place] [address] Dr. Dwight Waters EGFR-AF LIBYAN >60 Normal >=60 [facility] Comment on above: Performed By: #### C BC #### [facility] [address] [place] [address] Dr. Dwight Waters EGFR-NON AF LIBYAN >60 Normal >=60 [facility] Comment on above: Performed By: #### C BC #### [facility] [address] [address] [address] Dwight Waters Glucose [Mass/Vol] 117 mg/dL Critically high 74-106 [facility] Comment on above: Performed By: #### C BC #### [facility] [address] [address] [address] Dwight Waters Phosphate [Mass/Vol] 3.2 mg/dL Normal 2.6-4.7 [facility] Comment on above: Performed By: #### C BC #### [facility] [address] [place] [address] Dr. Dwight Waters Potassium [Moles/Vol] 4.1 mmol/L Normal 3.5-5.1 [facility] Comment on above: Performed By: #### C BC #### [facility] [address] [place] [address] Dr. Dwight Waters Sodium [Moles/Vol] 144 mmol/L Normal 136-145 [facility] Comment on above: Performed By: #### C BC #### [facility] [address] [place] [address] Dr. Dwight Waters Urea nitrogen [Mass/Vol] 13.0 mg/dL Normal 7.0-18.0 [facility] Comment on above: Performed By: #### C BC #### [facility] [address] [address] [address] Dwight Waters SGAlicia 12-29-2022 AST [Catalytic activity/Vol] 21 U/L Normal 15-37 [facility] Comment on above: Performed By: #### C BC #### [facility] [address] [place] [address] Dr. Dwight OLVERAPTon 12-29-2022 ALT [Catalytic activity/Vol] 32 U/L Normal 16-63 [facility] Comment on above: Performed By: #### C BC #### [facility] [address] [address] [address] Dwight Waters URINE T PROTEIN CREAT RATIOo n 12-29-2022 Protein (U) [Mass/Vol] 14.3 mg/dL Critically high <=12.0 [facility] Comment on above: Performed By: #### U RTPCR #### [facility] [address] [place] [address] Dr. Dwight Waters UR PROT CREAT RAT 0.17 Normal [facility] Comment on above: Performed By: #### U RTPCR #### [facility] [address] [place] [address] Dr. Dwight Waters URINE CREAT 86.58 mg/dL Normal 20.00-300.00 [facility] Comment on above: Performed By: #### U RTPCR #### [facility] [address] [place] [address] Dr. Dwight Waters FK506 (TACROLIMUS) WHOLE BLO ODon 11-06-2022 Tacrolimus (FK506), Blood 4.9 ng/mL Normal 2.0-20.0 [facility] Comment on above: Result Comment: Trou gh (immediately following transplant) 15.0 . Trough (steady state, 2 weeks or more after transplant): 3.0 - 8.0 . Performed by LC-MS/MS technology. Performed By: #### U RTPCR #### [facility] [address] [place] [address] Dr. Dwight Waters ALKALINE PHOSPHAon ALP [Catalytic activity/Vol] 86 U/L Normal 46-116 [facility] Comment on above: Performed By: #### U RTPCR #### [facility] [address] [place] [address] Dr. Dwight Waters BILIRUBIN CONJUGATED (DIRECT )on 11-04-2022 BILI, CONJUGATED 0.2 mg/dL Normal 0.0-0.2 [facility] Comment on above: Performed By: #### U RTPCR #### [facility] [address] [place] [address] Dr. Dwight Waters BILIRUBIN TOTALon 11-04-2022 Bilirubin [Mass/Vol] 0.8 mg/dL Normal 0.2-1.0 [facility] Comment on above: Performed By: #### U RTPCR #### [facility] [address] [place] [address] Dr. Dwight Waters CBC AUTO DIFFon 11-04-2022 BASO # 0.1 103/ul Normal 0.0-0.1 [facility] Comment on above: Performed By: #### U RTPCR #### [facility] [address] [place] [address] Dr. Dwight Waters Basophils/100 WBC (Bld) 0.9 % Normal 0.2-2.0 [facility] Comment on above: Performed By: #### U RTPCR #### [facility] [address] [place] [address] Dr. Dwight Waters EO # 0.2 103/ul Normal 0.0-0.7 [facility] Comment on above: Performed By: #### U RTPCR #### [facility] [address] [place] [address] Dr. Dwight Waters Eosinophils/100 WBC (Bld) 3.7 % Normal 0.9-7.0 [facility] Comment on above: Performed By: #### U RTPCR #### [facility] [address] [place] [address] Dr. Dwight Waters Erythrocyte distribution width (RBC) [Ratio] 12.9 % Normal 11.0-15.0 [facility] Comment on above: Performed By: #### U RTPCR #### [facility] [address] [place] [address] Dr. Dwight Waters Hematocrit (Bld) [Volume fraction] 48.3 % Normal 42.0-54.0 [facility] Comment on above: Performed By: #### U RTPCR #### [facility] [address] [place] [address] Dr. Dwight Waters Hemoglobin (Bld) [Mass/Vol] 15.6 g/dL Normal 14.0-18.0 [facility] Comment on above: Performed By: #### U RTPCR #### [facility] [address] [place] [address] Dr. Dwight Waters IG # 0.01 10e3/ul Normal 0.00-0.03 [facility] Comment on above: Performed By: #### U RTPCR #### [facility] [address] [place] [address] Dr. Dwight Waters IG % 0.2 % Normal 0.0-0.5 [facility] Comment on above: Performed By: #### U RTPCR #### [facility] [address] [place] [address] Dr. Dwight Waters LYMPH # 1.9 103/ul Normal 1.2-3.8 [facility] Comment on above: Performed By: #### U RTPCR #### [facility] [address] [place] [address] Dr. Dwight Waters Lymphocytes/100 WBC (Bld) 33.0 % Normal 20.5-60.0 [facility] Comment on above: Performed By: #### U RTPCR #### [facility] [address] [place] [address] Dr. Dwight Waters MANUAL DIFF REQ NO Normal [facility] Comment on above: Performed By: #### U RTPCR #### [facility] [address] [place] [address] Dr. Dwight Waters MCH (RBC) [Entitic mass] 27.6 pg Normal 25.9-34.0 [facility] Comment on above: Performed By: #### U RTPCR #### [facility] [address] [place] [address] Dr. Dwight Waters MCHC (RBC) [Mass/Vol] 32.3 g/dL Normal 29.9-35.2 [facility] Comment on above: Performed By: #### U RTPCR #### [facility] [address] [place] [address] Dr. Dwight Waters MCV (RBC) [Entitic vol] 85.5 fL Normal 80.0-94.0 [facility] Comment on above: Performed By: #### U RTPCR #### [facility] [address] [place] [address] Dr. Dwight Waters MONO # 0.5 103/ul Normal 0.3-0.8 [facility] Comment on above: Performed By: #### U RTPCR #### [facility] [address] [place] [address] Dr. Dwight Waters Monocytes/100 WBC (Bld) 8.8 % Normal 1.7-12.0 [facility] Comment on above: Performed By: #### U RTPCR #### [facility] [address] [place] [address] Dr. Dwight Waters NEUT # 3.1 103/ul Normal 1.4-6.5 [facility] Comment on above: Performed By: #### U RTPCR #### [facility] [address] [place] [address] Dr. Dwight Waters Neutrophils/100 WBC (Bld) 53.4 % Normal 43.0-75.0 [facility] Comment on above: Performed By: #### U RTPCR #### [facility] [address] [place] [address] Dr. Dwight Waters Platelet mean volume (Bld) [Entitic vol] 9.2 fL Critically low 9.5-13.5 [facility] Comment on above: Performed By: #### U RTPCR #### [facility] [address] [place] [address] Dr. Dwight Waters PLT 255 103/ul Normal 150-450 [facility] Comment on above: Performed By: #### U RTPCR #### [facility] [address] [place] [address] Dr. Dwight Waters RBC 5.65 106/ul Normal 4.70-6.10 [facility] Comment on above: Performed By: #### U RTPCR #### [facility] [address] [place] [address] Dr. Dwight Waters WBC 5.7 103/ul Normal 4.0-11.0 [facility] Comment on above: Performed By: #### U RTPCR #### [facility] [address] [place] [address] Dr. Dwight Waters GGTon 11-04-2022 Gamma glutamyl transferase [Catalytic activity/Vol] 22 U/L Normal 15-85 [facility] Comment on above: Performed By: #### U RTPCR #### [facility] [address] [place] [address] Dr. Dwight Waters MAGNESIUMon 11-04-2022 Magnesium [Mass/Vol] 1.8 mg/dL Normal 1.8-2.4 [facility] Comment on above: Performed By: #### U RTPCR #### [facility] [address] [place] [address] Dr. Dwight Waters RENAL FUNCTION PANELon 11-04 Albumin [Mass/Vol] 3.8 g/dL Normal 3.4-5.0 [facility] Comment on above: Performed By: #### U RTPCR #### [facility] [address] [place] [address] Dr. Dwight Waters Calcium [Mass/Vol] 9.3 mg/dL Normal 8.5-10.1 [facility] Comment on above: Performed By: #### U RTPCR #### [facility] [address] [place] [address] Dr. Dwight Waters Chloride [Moles/Vol] 107 mmol/L Normal 98-107 [facility] Comment on above: Performed By: #### U RTPCR #### [facility] [address] [place] [address] Dr. Dwight Waters CO2 [Moles/Vol] 29.2 mmol/L Normal 21.0-32.0 [facility] Comment on above: Performed By: #### U RTPCR #### [facility] [address] [place] [address] Dr. Dwight Waters Creatinine [Mass/Vol] 1.07 mg/dL Normal 0.70-1.30 [facility] Comment on above: Performed By: #### U RTPCR #### [facility] [address] [place] [address] Dr. Dwight Waters EGFR-AF LIBYAN >60 Normal >=60 [facility] Comment on above: Performed By: #### U RTPCR #### [facility] [address] [place] [address] Dr. Dwight Waters EGFR-NON AF LIBYAN >60 Normal >=60 [facility] Comment on above: Performed By: #### U RTPCR #### [facility] [address] [place] [address] Dr. Dwight Waters Glucose [Mass/Vol] 106 mg/dL Normal 74-106 [facility] Comment on above: Performed By: #### U RTPCR #### [facility] [address] [place] [address] Dr. Dwight Waters Phosphate [Mass/Vol] 2.8 mg/dL Normal 2.6-4.7 [facility] Comment on above: Performed By: #### U RTPCR #### [facility] [address] [place] [address] Dr. Dwight Waters Potassium [Moles/Vol] 4.1 mmol/L Normal 3.5-5.1 [facility] Comment on above: Performed By: #### U RTPCR #### [facility] [address] [place] [address] Dr. Dwight Waters Sodium [Moles/Vol] 143 mmol/L Normal 136-145 [facility] Comment on above: Performed By: #### U RTPCR #### [facility] [address] [place] [address] Dr. Dwight Waters Urea nitrogen [Mass/Vol] 12.0 mg/dL Normal 7.0-18.0 [facility] Comment on above: Performed By: #### U RTPCR #### [facility] [address] [place] [address] Dr. Dwight Albert 11-04-2022 AST [Catalytic activity/Vol] 19 U/L Normal 15-37 [facility] Comment on above: Performed By: #### U RTPCR #### [facility] [address] [place] [address] Dr. Dwight Osei 11-04-2022 ALT [Catalytic activity/Vol] 28 U/L Normal 16-63 [facility] Comment on above: Performed By: #### U RTPCR #### [facility] [address] [place] [address] Dr. Dwight Waters URINE T PROTEIN CREAT RATIOo n 11-04-2022 Protein (U) [Mass/Vol] 10.7 mg/dL Normal <=12.0 [facility] Comment on above: Performed By: #### U RTPCR #### [facility] [address] [place] [address] Dr. Dwight Waters UR PROT CREAT RAT 0.13 Normal [facility] Comment on above: Performed By: #### U RTPCR #### [facility] [address] [address] [address] Dwight Waters URINE CREAT 84.50 mg/dL Normal 20.00-300.00 [facility] Comment on above: Performed By: #### U RTPCR #### [facility] [address] [place] [address] Dr. Dwight Waters FK506 (TACROLIMUS) WHOLE BLO ODon 09-18-2022 Tacrolimus (FK506), Blood 4.6 ng/mL Normal 2.0-20.0 [facility] Comment on above: Result Comment: Trou gh (immediately following transplant) 15.0 . Trough (steady state, 2 weeks or more after transplant): 3.0 - 8.0 . Performed by LC-MS/MS technology. Performed By: #### U RTPCR #### [facility] [address] [place] [address] Dr. Dwight Waters BK VIRUS PCR QUANTon 022 BKV DNA QUANT PCR PLASMA Negative Normal Negative [facility] Comment on above: Result Comment: No B K DNA detected. . The linear range of the assay is 22 - 100,000,000 IU/mL. Performed By: #### U RTPCR #### [facility] [address] [place] [address] Dr. Dwight Waters Log10 BKV DNA Plasma Normal [facility] Comment on above: Performed By: #### U RTPCR #### [facility] [address] [place] [address] Dr. Dwight Waters ALKALINE PHOSPHAon 2 ALP [Catalytic activity/Vol] 92 U/L Normal 46-116 [facility] Comment on above: Performed By: #### U RTPCR #### [facility] [address] [place] [address] Dr. Dwight Waters BILIRUBIN CONJUGATED (DIRECT )on 09-15-2022 BILI, CONJUGATED 0.3 mg/dL Critically high 0.0-0.2 [facility] Comment on above: Performed By: #### U RTPCR #### [facility] [address] [place] [address] Dr. Dwight Waters BILIRUBIN TOTALon 09-15-2022 Bilirubin [Mass/Vol] 1.1 mg/dL Critically high 0.2-1.0 [facility] Comment on above: Performed By: #### U RTPCR #### [facility] [address] [place] [address] Dr. Dwihgt Waters CBC AUTO DIFFon 09-15-2022 BASO # 0.1 103/ul Normal 0.0-0.1 [facility] Comment on above: Performed By: #### C BC #### [facility] [address] [place] [address] Dr. Dwight Waters Basophils/100 WBC (Bld) 0.8 % Normal 0.2-2.0 [facility] Comment on above: Performed By: #### C BC #### [facility] [address] [place] [address] Dr. Dwight Waters EO # 0.2 103/ul Normal 0.0-0.7 [facility] Comment on above: Performed By: #### C BC #### [facility] [address] [place] [address] Dr. Dwight Waters Eosinophils/100 WBC (Bld) 3.5 % Normal 0.9-7.0 [facility] Comment on above: Performed By: #### C BC #### [facility] [address] [place] [address] Dr. Dwight Waters Erythrocyte distribution width (RBC) [Ratio] 13.0 % Normal 11.0-15.0 [facility] Comment on above: Performed By: #### C BC #### [facility] [address] [place] [address] Dr. Dwight Waters Hematocrit (Bld) [Volume fraction] 50.0 % Normal 42.0-54.0 [facility] Comment on above: Performed By: #### C BC #### [facility] [address] [place] [address] Dr. Dwight Waters Hemoglobin (Bld) [Mass/Vol] 16.0 g/dL Normal 14.0-18.0 [facility] Comment on above: Performed By: #### C BC #### [facility] [address] [place] [address] Dr. Dwight Waters IG # 0.02 10e3/ul Normal 0.00-0.03 [facility] Comment on above: Performed By: #### C BC #### [facility] [address] [place] [address] Dr. Dwight Waters IG % 0.3 % Normal 0.0-0.5 [facility] Comment on above: Performed By: #### C BC #### [facility] [address] [place] [address] Dr. Dwight Waters LYMPH # 1.8 103/ul Normal 1.2-3.8 [facility] Comment on above: Performed By: #### C BC #### [facility] [address] [place] [address] Dr. Dwight Waters Lymphocytes/100 WBC (Bld) 26.5 % Normal 20.5-60.0 [facility] Comment on above: Performed By: #### C BC #### [facility] [address] [place] [address] Dr. Dwight Waters MANUAL DIFF REQ NO Normal [facility] Comment on above: Performed By: #### C BC #### [facility] [address] [place] [address] Dr. Dwight Waters MCH (RBC) [Entitic mass] 28.1 pg Normal 25.9-34.0 [facility] Comment on above: Performed By: #### C BC #### [facility] [address] [place] [address] Dr. Dwight Waters MCHC (RBC) [Mass/Vol] 32.0 g/dL Normal 29.9-35.2 [facility] Comment on above: Performed By: #### C BC #### [facility] [address] [address] [address] Dwight Waters MCV (RBC) [Entitic vol] 87.9 fL Normal 80.0-94.0 [facility] Comment on above: Performed By: #### C BC #### [facility] [address] [address] [address] Dwight Waters MONO # 0.5 103/ul Normal 0.3-0.8 [facility] Comment on above: Performed By: #### C BC #### [facility] [address] [address] [address] Dwight Waters Monocytes/100 WBC (Bld) 8.1 % Normal 1.7-12.0 [facility] Comment on above: Performed By: #### C BC #### [facility] [address] [place] [address] Dr. Dwight Waters NEUT # 4.0 103/ul Normal 1.4-6.5 [facility] Comment on above: Performed By: #### C BC #### [facility] [address] [place] [address] Dr. Dwight Waters Neutrophils/100 WBC (Bld) 60.8 % Normal 43.0-75.0 [facility] Comment on above: Performed By: #### C BC #### [facility] [address] [address] [address] Dwight Waters Platelet mean volume (Bld) [Entitic vol] 9.4 fL Critically low 9.5-13.5 [facility] Comment on above: Performed By: #### C BC #### [facility] [address] [address] [address] Dwight Waters PLT 265 103/ul Normal 150-450 [facility] Comment on above: Performed By: #### C BC #### [facility] [address] [address] [address] Dwight Waters RBC 5.69 106/ul Normal 4.70-6.10 [facility] Comment on above: Performed By: #### C BC #### [facility] [address] [place] [address] Dr. Dwight Waters WBC 6.6 103/ul Normal 4.0-11.0 [facility] Comment on above: Performed By: #### C BC #### [facility] [address] [place] [address] Dr. Dwight Waters GGTon 09-15-2022 Gamma glutamyl transferase [Catalytic activity/Vol] 23 U/L Normal 15-85 [facility] Comment on above: Performed By: #### U RTPCR #### [facility] [address] [place] [address] Dr. Dwight Waters MAGNESIUMon 09-15-2022 Magnesium [Mass/Vol] 1.8 mg/dL Normal 1.8-2.4 [facility] Comment on above: Performed By: #### U RTPCR #### [facility] [address] [place] [address] Dr. Dwight Waters RENAL FUNCTION PANELon 09-15 Albumin [Mass/Vol] 4.1 g/dL Normal 3.4-5.0 [facility] Comment on above: Performed By: #### C BC #### [facility] [address] [place] [address] Dr. Dwight Waters Calcium [Mass/Vol] 9.3 mg/dL Normal 8.5-10.1 [facility] Comment on above: Performed By: #### C BC #### [facility] [address] [place] [address] Dr. Dwight Waters Chloride [Moles/Vol] 107 mmol/L Normal 98-107 [facility] Comment on above: Performed By: #### C BC #### [facility] [address] [place] [address] Dr. Dwight Waters CO2 [Moles/Vol] 25.6 mmol/L Normal 21.0-32.0 [facility] Comment on above: Performed By: #### C BC #### [facility] [address] [place] [address] Dr. Dwight Waters Creatinine [Mass/Vol] 1.01 mg/dL Normal 0.70-1.30 [facility] Comment on above: Performed By: #### C BC #### [facility] [address] [place] [address] Dr. Dwight Waters EGFR-AF LIBYAN >60 Normal >=60 [facility] Comment on above: Performed By: #### C BC #### [facility] [address] [place] [address] Dr. Dwight Waters EGFR-NON AF LIBYAN >60 Normal >=60 [facility] Comment on above: Performed By: #### C BC #### [facility] [address] [place] [address] Dr. Dwight Waters Glucose [Mass/Vol] 119 mg/dL Critically high 74-106 T [facility] Comment on above: Performed By: #### C BC #### [facility] [address] [place] [address] Dr. Dwight Waters Phosphate [Mass/Vol] 2.8 mg/dL Normal 2.6-4.7 [facility] Comment on above: Performed By: #### C BC #### [facility] [address] [place] [address] Dr. Dwight Waters Potassium [Moles/Vol] 4.0 mmol/L Normal 3.5-5.1 [facility] Comment on above: Performed By: #### C BC #### [facility] [address] [place] [address] Dr. Dwight Waters Sodium [Moles/Vol] 141 mmol/L Normal 136-145 [facility] Comment on above: Performed By: #### C BC #### [facility] [address] [place] [address] Dr. Dwight Waters Urea nitrogen [Mass/Vol] 15.0 mg/dL Normal 7.0-18.0 [facility] Comment on above: Performed By: #### C BC #### [facility] [address] [place] [address] Dr. Dwight Waters SGOTon 09-15-2022 AST [Catalytic activity/Vol] 18 U/L Normal 15-37 [facility] Comment on above: Performed By: #### U RTPCR #### [facility] [address] [address] [address] Dwight Waters SGPTon 09-15-2022 ALT [Catalytic activity/Vol] 32 U/L Normal 16-63 [facility] Comment on above: Performed By: #### C BC #### [facility] [address] [place] [address] Dr. Dwight Waters URINE T PROTEIN CREAT RATIOo n 09-15-2022 Protein (U) [Mass/Vol] 14.1 mg/dL Critically high <=12.0 [facility] Comment on above: Performed By: #### U RTPCR #### [facility] [address] [place] [address] Dr. Dwight Waters UR PROT CREAT RAT 0.14 Normal [facility] Comment on above: Performed By: #### U RTPCR #### [facility] [address] [place] [address] Dr. Dwight Waters URINE CREAT 98.89 mg/dL Normal 20.00-300.00 [facility] Comment on above: Performed By: #### U RTPCR #### [facility] [address] [place] [address] Dr. Dwight Waters US CAROTID ART BILon [...] MÓNICA JIMENEZ Date: 2022-08-28 13:20 Normal [facility] FK506 (TACROLIMUS) WHOLE BLO ODon 08-17-2022 Tacrolimus (FK506), Blood 9.9 ng/mL Normal 2.0-20.0 [facility] Comment on above: Result Comment: Trou gh (immediately following transplant) 15.0 . Trough (steady state, 2 weeks or more after transplant): 3.0 - 8.0 . Performed by LC-MS/MS technology. Performed By: #### F [id number] #### [facility] [address] [place] [address] Dr. Dwight Waters BK VIRUS PCR QUANTon 022 BKV DNA QUANT PCR PLASMA Negative Normal Negative [facility] Comment on above: Result Comment: No B K DNA detected. . The linear range of the assay is 22 - 100,000,000 IU/mL. Performed By: #### U RTPCR #### [facility] [address] [place] [address] Dr. Dwight Waters Log10 BKV DNA Plasma Normal [facility] Comment on above: Performed By: #### U RTPCR #### [facility] [address] [place] [address] Dr. Dwight Waters ALBUMINon 08-14-2022 Albumin [Mass/Vol] 4.2 g/dL Normal 3.4-5.0 [facility] Comment on above: Performed By: #### F [id number] #### [facility] [address] [place] [address] Dr. Dwight Waters ALKALINE PHOSPHAon ALP [Catalytic activity/Vol] 92 U/L Normal 46-116 [facility] Comment on above: Performed By: #### C BC #### [facility] [address] [place] [address] Dr. Dwight Waters BILIRUBIN CONJUGATED (DIRECT )on 08-14-2022 BILI, CONJUGATED 0.3 mg/dL Critically high 0.0-0.2 [facility] Comment on above: Performed By: #### F [id number] #### [facility] [address] [place] [address] Dr. Dwight Waters BILIRUBIN TOTALon 08-14-2022 Bilirubin [Mass/Vol] 1.5 mg/dL Critically high 0.2-1.0 [facility] Comment on above: Performed By: #### F [id number] #### [facility] [address] [place] [address] Dr. Dwight Waters BUNon 08-14-2022 Urea nitrogen [Mass/Vol] 11.0 mg/dL Normal 7.0-18.0 [facility] Comment on above: Performed By: #### C BC #### [facility] [address] [place] [address] Dr. Dwight Waters CALCIUMon 08-14-2022 Calcium [Mass/Vol] 9.4 mg/dL Normal 8.5-10.1 [facility] Comment on above: Performed By: #### F [id number] #### [facility] [address] [place] [address] Dr. Dwight Waters CBC AUTO DIFFon 08-14-2022 BASO # 0.0 103/ul Normal 0.0-0.1 [facility] Comment on above: Performed By: #### C MP #### [facility] [address] [place] [address] Dr. Dwight Waters Basophils/100 WBC (Bld) 0.5 % Normal 0.2-2.0 [facility] Comment on above: Performed By: #### C MP #### [facility] [address] [place] [address] Dr. Dwight Waters EO # 0.2 103/ul Normal 0.0-0.7 [facility] Comment on above: Performed By: #### C MP #### [facility] [address] [place] [address] Dr. Dwight Waters Eosinophils/100 WBC (Bld) 2.6 % Normal 0.9-7.0 [facility] Comment on above: Performed By: #### C MP #### [facility] [address] [place] [address] Dr. Dwight Waters Erythrocyte distribution width (RBC) [Ratio] 13.1 % Normal 11.0-15.0 [facility] Comment on above: Performed By: #### C MP #### [facility] [address] [place] [address] Dr. Dwight Waters Hematocrit (Bld) [Volume fraction] 47.0 % Normal 42.0-54.0 [facility] Comment on above: Performed By: #### C MP #### [facility] [address] [place] [address] Dr. Dwight Waters Hemoglobin (Bld) [Mass/Vol] 15.3 g/dL Normal 14.0-18.0 [facility] Comment on above: Performed By: #### C MP #### [facility] [address] [place] [address] Dr. Dwight Waters IG # 0.01 10e3/ul Normal 0.00-0.03 [facility] Comment on above: Performed By: #### C MP #### [facility] [address] [place] [address] Dr. Dwight Waters IG % 0.1 % Normal 0.0-0.5 [facility] Comment on above: Performed By: #### C MP #### [facility] [address] [place] [address] Dr. Dwight Waters LYMPH # 2.3 103/ul Normal 1.2-3.8 [facility] Comment on above: Performed By: #### C MP #### [facility] [address] [place] [address] Dr. Dwight Waters Lymphocytes/100 WBC (Bld) 29.8 % Normal 20.5-60.0 [facility] Comment on above: Performed By: #### C MP #### [facility] [address] [place] [address] Dr. Dwight Waters MANUAL DIFF REQ NO Normal [facility] Comment on above: Performed By: #### C MP #### [facility] [address] [place] [address] Dr. Dwight Waters MCH (RBC) [Entitic mass] 28.2 pg Normal 25.9-34.0 [facility] Comment on above: Performed By: #### C MP #### [facility] [address] [place] [address] Dr. Dwight Waters MCHC (RBC) [Mass/Vol] 32.6 g/dL Normal 29.9-35.2 [facility] Comment on above: Performed By: #### C MP #### [facility] [address] [place] [address] Dr. Dwight Waters MCV (RBC) [Entitic vol] 86.7 fL Normal 80.0-94.0 [facility] Comment on above: Performed By: #### C MP #### [facility] [address] [place] [address] Dr. Dwight Waters MONO # 0.7 103/ul Normal 0.3-0.8 [facility] Comment on above: Performed By: #### C MP #### [facility] [address] [place] [address] Dr. Dwight Waters Monocytes/100 WBC (Bld) 8.5 % Normal 1.7-12.0 [facility] Comment on above: Performed By: #### C MP #### [facility] [address] [place] [address] Dr. Dwight Waters NEUT # 4.5 103/ul Normal 1.4-6.5 [facility] Comment on above: Performed By: #### C MP #### [facility] [address] [place] [address] Dr. Dwight Waters Neutrophils/100 WBC (Bld) 58.5 % Normal 43.0-75.0 [facility] Comment on above: Performed By: #### C MP #### [facility] [address] [place] [address] Dr. Dwight Waters Platelet mean volume (Bld) [Entitic vol] 9.7 fL Normal 9.5-13.5 [facility] Comment on above: Performed By: #### C MP #### [facility] [address] [place] [address] Dr. Dwight Waters PLT 266 103/ul Normal 150-450 [facility] Comment on above: Performed By: #### C MP #### [facility] [address] [place] [address] Dr. Dwight Waters RBC 5.42 106/ul Normal 4.70-6.10 [facility] Comment on above: Performed By: #### C MP #### [facility] [address] [place] [address] Dr. Dwight Waters WBC 7.6 103/ul Normal 4.0-11.0 [facility] Comment on above: Performed By: #### C MP #### [facility] [address] [place] [address] Dr. Dwight Waters CHLORIDEon 08-14-2022 Chloride [Moles/Vol] 104 mmol/L Normal 98-107 [facility] Comment on above: Performed By: #### C BC #### [facility] [address] [place] [address] Dr. Dwight Waters CO2on 08-14-2022 CO2 [Moles/Vol] 27.9 mmol/L Normal 21.0-32.0 [facility] Comment on above: Performed By: #### C BC #### [facility] [address] [place] [address] Dr. Dwight Waters CREATININEon 08-14-2022 Creatinine [Mass/Vol] 1.08 mg/dL Normal 0.70-1.30 [facility] Comment on above: Performed By: #### C BC #### [facility] [address] [place] [address] Dr. Dwight Waters EGFR-AF LIBYAN >60 Normal >=60 [facility] Comment on above: Performed By: #### C BC #### [facility] [address] [place] [address] Dr. Dwight Waters EGFR-NON AF LIBYAN >60 Normal >=60 [facility] Comment on above: Performed By: #### C BC #### [facility] [address] [place] [address] Dr. Dwight Waters GGTon 08-14-2022 Gamma glutamyl transferase [Catalytic activity/Vol] 24 U/L Normal 15-85 [facility] Comment on above: Performed By: #### F [id number] #### [facility] [address] [place] [address] Dr. Dwight Waters GLUCOSE BLOODon 08-14-2022 Glucose [Mass/Vol] 111 mg/dL Critically high 74-106 [facility] Comment on above: Performed By: #### C BC #### [facility] [address] [place] [address] Dr. Dwight Waters MAGNESIUMon 08-14-2022 Magnesium [Mass/Vol] 1.4 mg/dL Critically low 1.8-2.4 [facility] Comment on above: Performed By: #### C BC #### [facility] [address] [place] [address] Dr. Dwight Waters NAon 08-14-2022 Sodium [Moles/Vol] 140 mmol/L Normal 136-145 [facility] Comment on above: Performed By: #### F [id number] #### [facility] [address] [place] [address] Dr. Dwight Waters PHOSPHORUSon 08-14-2022 Phosphate [Mass/Vol] 3.1 mg/dL Normal 2.6-4.7 [facility] Comment on above: Performed By: #### C BC #### [facility] [address] [place] [address] Dr. Dwight Waters POTASSIUMon 08-14-2022 Potassium [Moles/Vol] 3.5 mmol/L Normal 3.5-5.1 [facility] Comment on above: Performed By: #### C BC #### [facility] [address] [place] [address] Dr. Dwight Albert 08-14-2022 AST [Catalytic activity/Vol] 17 U/L Normal 15-37 [facility] Comment on above: Performed By: #### F [id number] #### [facility] [address] [place] [address] Dr. Dwight Waters SGPTon 08-14-2022 ALT [Catalytic activity/Vol] 22 U/L Normal 16-63 [facility] Comment on above: Performed By: #### F [id number] #### [facility] [address] [place] [address] Dr. Dwight Waters URINE T PROTEIN CREAT RATIOo n 08-14-2022 Protein (U) [Mass/Vol] 10.7 mg/dL Normal <=12.0 [facility] Comment on above: Performed By: #### F [id number] #### [facility] [address] [place] [address] Dr. Dwight Waters UR PROT CREAT RAT 0.10 Normal [facility] Comment on above: Performed By: #### F [id number] #### [facility] [address] [address] [address] Dwight Waters URINE CREAT 104.28 mg/dL Normal 20.00-300.00 [facility] Comment on above: Performed By: #### F [id number] #### [facility] [id number] Dwight Waters NEPHROSTOMY TUBE REMOVALon 0 [...] physician present for entire procedure: yes U [facility] Radiology Study observation (narrative) [facility] FK506 (TACROLIMUS) WHOLE BLO ODon 07-06-2022 Tacrolimus (FK506), Blood 9.5 ng/mL Normal 2.0-20.0 [facility] Comment on above: Result Comment: Trou gh (immediately following transplant) 15.0 . Trough (steady state, 2 weeks or more after transplant): 3.0 - 8.0 . Performed by LC-MS/MS technology. Performed By: #### C MP #### [facility] [address] [place] [address] Dr. Dwight Waters ALBUMINon 07-03-2022 Albumin [Mass/Vol] 3.7 g/dL Normal 3.4-5.0 [facility] Comment on above: Performed By: #### U RTPCR #### [facility] [address] [place] [address] Dr. Dwight Waters ALKALINE PHOSPHAon ALP [Catalytic activity/Vol] 76 U/L Normal 46-116 [facility] Comment on above: Performed By: #### U RTPCR #### [facility] [address] [place] [address] Dr. Dwight Waters BILIRUBIN CONJUGATED (DIRECT )on 07-03-2022 BILI, CONJUGATED 0.3 mg/dL Critically high 0.0-0.2 [facility] Comment on above: Performed By: #### C BC #### [facility] [address] [place] [address] Dr. Dwight Waters BILIRUBIN TOTALon 07-03-2022 Bilirubin [Mass/Vol] 1.4 mg/dL Critically high 0.2-1.0 [facility] Comment on above: Performed By: #### C BC #### [facility] [address] [place] [address] Dr. Dwight Waters BUNon 07-03-2022 Urea nitrogen [Mass/Vol] 15.0 mg/dL Normal 7.0-18.0 [facility] Comment on above: Performed By: #### C BC #### [facility] [address] [place] [address] Dr. Dwight Waters CALCIUMon 07-03-2022 Calcium [Mass/Vol] 9.4 mg/dL Normal 8.5-10.1 [facility] Comment on above: Performed By: #### U RTPCR #### [facility] [address] [place] [address] Dr. Dwight Waters CBC AUTO DIFFon 07-03-2022 BASO # 0.0 103/ul Normal 0.0-0.1 [facility] Comment on above: Performed By: #### U RTPCR #### [facility] [address] [place] [address] Dr. Dwight Waters Basophils/100 WBC (Bld) 0.6 % Normal 0.2-2.0 [facility] Comment on above: Performed By: #### U RTPCR #### [facility] [address] [place] [address] Dr. Dwight Waters EO # 0.2 103/ul Normal 0.0-0.7 [facility] Comment on above: Performed By: #### U RTPCR #### [facility] [address] [place] [address] Dr. Dwight Waters Eosinophils/100 WBC (Bld) 3.5 % Normal 0.9-7.0 [facility] Comment on above: Performed By: #### U RTPCR #### [facility] [address] [place] [address] Dr. Dwight Waters Erythrocyte distribution width (RBC) [Ratio] 12.9 % Normal 11.0-15.0 [facility] Comment on above: Performed By: #### U RTPCR #### [facility] [address] [place] [address] Dr. Dwight Waters Hematocrit (Bld) [Volume fraction] 44.2 % Normal 42.0-54.0 [facility] Comment on above: Performed By: #### U RTPCR #### [facility] [address] [place] [address] Dr. Dwight Waters Hemoglobin (Bld) [Mass/Vol] 14.6 g/dL Normal 14.0-18.0 [facility] Comment on above: Performed By: #### U RTPCR #### [facility] [address] [place] [address] Dr. Dwight Waters IG # 0.02 10e3/ul Normal 0.00-0.03 [facility] Comment on above: Performed By: #### U RTPCR #### [facility] [address] [place] [address] Dr. Dwight Waters IG % 0.3 % Normal 0.0-0.5 [facility] Comment on above: Performed By: #### U RTPCR #### [facility] [address] [place] [address] Dr. Dwight Waters LYMPH # 2.0 103/ul Normal 1.2-3.8 [facility] Comment on above: Performed By: #### U RTPCR #### [facility] [address] [place] [address] Dr. Dwight Waters Lymphocytes/100 WBC (Bld) 28.4 % Normal 20.5-60.0 [facility] Comment on above: Performed By: #### U RTPCR #### [facility] [address] [place] [address] Dr. Dwight Waters MANUAL DIFF REQ NO Normal [facility] Comment on above: Performed By: #### U RTPCR #### [facility] [address] [place] [address] Dr. Dwight Waters MCH (RBC) [Entitic mass] 28.6 pg Normal 25.9-34.0 [facility] Comment on above: Performed By: #### U RTPCR #### [facility] [address] [place] [address] Dr. Dwight Waters MCHC (RBC) [Mass/Vol] 33.0 g/dL Normal 29.9-35.2 [facility] Comment on above: Performed By: #### U RTPCR #### [facility] [address] [place] [address] Dr. Dwight Waters MCV (RBC) [Entitic vol] 86.7 fL Normal 80.0-94.0 [facility] Comment on above: Performed By: #### U RTPCR #### [facility] [address] [place] [address] Dr. Dwight Waters MONO # 0.6 103/ul Normal 0.3-0.8 [facility] Comment on above: Performed By: #### U RTPCR #### [facility] [address] [place] [address] Dr. Dwight Waters Monocytes/100 WBC (Bld) 9.1 % Normal 1.7-12.0 [facility] Comment on above: Performed By: #### U RTPCR #### [facility] [address] [place] [address] Dr. Dwight Waters NEUT # 4.0 103/ul Normal 1.4-6.5 [facility] Comment on above: Performed By: #### U RTPCR #### [facility] [address] [place] [address] Dr. Dwight Waters Neutrophils/100 WBC (Bld) 58.1 % Normal 43.0-75.0 [facility] Comment on above: Performed By: #### U RTPCR #### [facility] [address] [place] [address] Dr. Dwight Waters Platelet mean volume (Bld) [Entitic vol] 9.5 fL Normal 9.5-13.5 [facility] Comment on above: Performed By: #### U RTPCR #### [facility] [address] [place] [address] Dr. Dwight Waters PLT 292 103/ul Normal 150-450 [facility] Comment on above: Performed By: #### U RTPCR #### [facility] [address] [place] [address] Dr. Dwight Waters RBC 5.10 106/ul Normal 4.70-6.10 [facility] Comment on above: Performed By: #### U RTPCR #### [facility] [address] [place] [address] Dr. Dwight Waters WBC 6.9 103/ul Normal 4.0-11.0 [facility] Comment on above: Performed By: #### U RTPCR #### [facility] [address] [place] [address] Dr. Dwight Waters CHLORIDEon 07-03-2022 Chloride [Moles/Vol] 108 mmol/L Critically high 98-107 [facility] Comment on above: Performed By: #### C BC #### [facility] [address] [place] [address] Dr. Dwight Waters CO2on 07-03-2022 CO2 [Moles/Vol] 25.2 mmol/L Normal 21.0-32.0 [facility] Comment on above: Performed By: #### C BC #### [facility] [address] [place] [address] Dr. Dwight Waters CREATININEon 07-03-2022 Creatinine [Mass/Vol] 1.03 mg/dL Normal 0.70-1.30 [facility] Comment on above: Performed By: #### U RTPCR #### [facility] [address] [place] [address] Dr. Dwight Waters EGFR-AF LIBYAN >60 Normal >=60 [facility] Comment on above: Performed By: #### U RTPCR #### [facility] [address] [place] [address] Dr. Dwight Waters EGFR-NON AF LIBYAN >60 Normal >=60 [facility] Comment on above: Performed By: #### U RTPCR #### [facility] [address] [place] [address] Dr. Dwight Waters GGTon 07-03-2022 Gamma glutamyl transferase [Catalytic activity/Vol] 31 U/L Normal 15-85 [facility] Comment on above: Performed By: #### U RTPCR #### [facility] [address] [place] [address] Dr. Dwight Waters GLUCOSE BLOODon 07-03-2022 Glucose [Mass/Vol] 119 mg/dL Critically high 74-106 T [facility] Comment on above: Performed By: #### U RTPCR #### [facility] [address] [place] [address] Dr. Dwight Waters MAGNESIUMon 07-03-2022 Magnesium [Mass/Vol] 1.4 mg/dL Critically low 1.8-2.4 [facility] Comment on above: Performed By: #### C BC #### [facility] [address] [place] [address] Dr. Dwight Waters NAon 07-03-2022 Sodium [Moles/Vol] 142 mmol/L Normal 136-145 [facility] Comment on above: Performed By: #### C MP #### [facility] [address] [address] [address] Dwight Waters PHOSPHORUSon 07-03-2022 Phosphate [Mass/Vol] 3.4 mg/dL Normal 2.6-4.7 [facility] Comment on above: Performed By: #### C BC #### [facility] [address] [place] [address] Dr. Dwight Waters POTASSIUMon 07-03-2022 Potassium [Moles/Vol] 4.1 mmol/L Normal 3.5-5.1 [facility] Comment on above: Performed By: #### C BC #### [facility] [address] [place] [address] Dr. Dwight Waters SGOTon 07-03-2022 AST [Catalytic activity/Vol] 14 U/L Critically low 15-37 [facility] Comment on above: Performed By: #### C BC #### [facility] [address] [place] [address] Dr. Dwight Waters SGPTon 07-03-2022 ALT [Catalytic activity/Vol] 25 U/L Normal 16-63 [facility] Comment on above: Performed By: #### C BC #### [facility] [address] [place] [address] Dr. Dwight Waters US KIDNEYSon 07-03-2022 US KIDNEYS Ultrasound kidneys, bilateral HISTORY: Transplant of kidney , pain in the right lower quadrant COMPARISON: None. TECHNIQUE: Transabdominal ultrasound imaging of both kidneys was performed. FINDINGS: The [place] kidneys are diffusely echogenic and atrophic with cortical thinning. The right kidney measures 8.3 x 3.5 x 4.07 m and the left measures 9.9 x 3.8 x 3.6 cm. No hydronephrosis of the [place] kidneys. There is a renal transplant in [...] stone involving the renal transplant. 2. Atrophic [place] kidneys. 3. Normal bladder. Electronically authenticated by: ARCELIA PIZARRO Date: 2022-07-03 17:22 Normal [facility] CT Abdomen and Pelvis WO geoff sosa 06-27-2022 IMPRESSION: 1. Both [place] kidneys are atrophic with improvement in right-sided [...] Adrenals: Adrenal glands are unremarkable. Kidneys: Both [place] kidneys are atrophic. Interval improvement in right [place] kidney hydronephrosis since May 15, 2022. Status [...] Adrenals: Adrenal glands are unremarkable. Kidneys: Both [place] kidneys are atrophic. Interval improvement in right [place] kidney hydronephrosis since May 15, 2022. Status [...] aggressive osseous lesions. IMPRESSION IMPRESSION: 1. Both [place] kidneys are atrophic with improvement in right-sided hydronephrosis since May 15, 2022. 2. 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 No hydronephrosis. No discrete perinephric collection. 3. Partially imaged postsurgical changes related to prior liver transplant. 4. The bladder is decompressed, limiting evaluation. [facility] Radiology Study observation (narrative) [facility] CT Abdomen and Pelvis WO con trastOrdered By: Gera Lu on 06-27-2022 [facility] Work Phone: CBC AUTO DIFFon 06-18-2022 BASO # 0.0 103/ul Normal 0.0-0.1 [facility] Comment on above: Performed By: #### U RTPCR #### [facility] [address] [place] [address] Dr. Dwight Waters Basophils/100 WBC (Bld) 0.5 % Normal 0.2-2.0 [facility] Comment on above: Performed By: #### U RTPCR #### [facility] [address] [address] [address] Dwight Waters EO # 0.2 103/ul Normal 0.0-0.7 [facility] Comment on above: Performed By: #### U RTPCR #### [facility] [address] [address] [address] Dwight Waters Eosinophils/100 WBC (Bld) 2.3 % Normal 0.9-7.0 [facility] Comment on above: Performed By: #### U RTPCR #### [facility] [address] [address] [address] Dwight Waters Erythrocyte distribution width (RBC) [Ratio] 12.9 % Normal 11.0-15.0 [facility] Comment on above: Performed By: #### U RTPCR #### [facility] [address] [address] [address] Dwight Waters Hematocrit (Bld) [Volume fraction] 41.2 % Critically low 42.0-54.0 [facility] Comment on above: Performed By: #### U RTPCR #### [facility] [address] [address] [address] Dwight Waters Hemoglobin (Bld) [Mass/Vol] 13.3 g/dL Critically low 14.0-18.0 [facility] Comment on above: Performed By: #### U RTPCR #### [facility] [address] [place] [address] Dr. Dwight Waters IG # 0.04 10e3/ul Critically high 0.00-0.03 [facility] Comment on above: Performed By: #### U RTPCR #### [facility] [address] [place] [address] Dr. Dwight Waters IG % 0.5 % Normal 0.0-0.5 [facility] Comment on above: Performed By: #### U RTPCR #### [facility] [address] [place] [address] Dr. Dwight Waters LYMPH # 2.0 103/ul Normal 1.2-3.8 [facility] Comment on above: Performed By: #### U RTPCR #### [facility] [address] [place] [address] Dr. Dwight Waters Lymphocytes/100 WBC (Bld) 22.9 % Normal 20.5-60.0 [facility] Comment on above: Performed By: #### U RTPCR #### [facility] [address] [place] [address] Dr. Dwight Waters MANUAL DIFF REQ NO Normal [facility] Comment on above: Performed By: #### U RTPCR #### [facility] [address] [place] [address] Dr. Dwight Waters MCH (RBC) [Entitic mass] 28.7 pg Normal 25.9-34.0 [facility] Comment on above: Performed By: #### U RTPCR #### [facility] [address] [place] [address] Dr. Dwight Waters MCHC (RBC) [Mass/Vol] 32.3 g/dL Normal 29.9-35.2 [facility] Comment on above: Performed By: #### U RTPCR #### [facility] [address] [place] [address] Dr. Dwight Waters MCV (RBC) [Entitic vol] 88.8 fL Normal 80.0-94.0 [facility] Comment on above: Performed By: #### U RTPCR #### [facility] [address] [place] [address] Dr. Dwight Waters MONO # 0.8 103/ul Normal 0.3-0.8 [facility] Comment on above: Performed By: #### U RTPCR #### [facility] [address] [place] [address] Dr. Dwight Waters Monocytes/100 WBC (Bld) 9.7 % Normal 1.7-12.0 [facility] Comment on above: Performed By: #### U RTPCR #### [facility] [address] [place] [address] Dr. Dwight Waters NEUT # 5.6 103/ul Normal 1.4-6.5 [facility] Comment on above: Performed By: #### U RTPCR #### [facility] [address] [place] [address] Dr. Dwight Waters Neutrophils/100 WBC (Bld) 64.1 % Normal 43.0-75.0 [facility] Comment on above: Performed By: #### U RTPCR #### [facility] [address] [place] [address] Dr. Dwight Waters Platelet mean volume (Bld) [Entitic vol] 10.0 fL Normal 9.5-13.5 [facility] Comment on above: Performed By: #### U RTPCR #### [facility] [address] [place] [address] Dr. Dwight Waters PLT 270 103/ul Normal 150-450 [facility] Comment on above: Performed By: #### U RTPCR #### [facility] [address] [place] [address] Dr. Dwight Waters RBC 4.64 106/ul Critically low 4.70-6.10 [facility] Comment on above: Performed By: #### U RTPCR #### [facility] [address] [place] [address] Dr. Dwight Waters WBC 8.7 103/ul Normal 4.0-11.0 [facility] Comment on above: Performed By: #### U RTPCR #### [facility] [address] [place] [address] Dr. Dwight Waters CULTURE URINEon 06-18-2022 CULTURE URINE Culture Observations : NO GROWTH. Normal [facility] Comment on above: Performed By: #### U RTPCR #### [facility] [address] [place] [address] Dr. Dwight Waters [facility] SARS-CoV-2 (COVID-19) RNA ESTELITA+probe Ql (Unsp spec) Not detected Normal NOT DETECTED [facility] Comment on above: Result Comment: When diagnostic [...] for this test is supported by the [employer] Supervisor of Health and Human Service's declaration [...] used). Performed By: #### C BC #### [facility] [address] [place] [address] Dr. Dwight Waters ER URINE PROFILEon Bilirubin Ql (U) Negative Normal NEGATIVE [facility] Comment on above: Performed By: #### U RTPCR #### [facility] [address] [place] [address] Dr. Dwight Waters Clarity (U) CLEAR Normal CLEAR [facility] Comment on above: Performed By: #### U RTPCR #### [facility] [address] [place] [address] Dr. Dwight Waters Color (U) YELLOW Normal YELLOW [facility] Comment on above: Performed By: #### U RTPCR #### [facility] [address] [place] [address] Dr. Dwight SHARMA A micrscopic examina tion will be performed if indicated. Normal [facility] Comment on above: Performed By: #### U RTPCR #### [facility] [address] [place] [address] Dr. Dwight Waters Glucose Ql (U) Negative Normal NEGATIVE [facility] Comment on above: Performed By: #### U RTPCR #### [facility] [address] [place] [address] Dr. Dwight Waters Hemoglobin Ql (U) LARGE Abnormal NEGATIVE [facility] Comment on above: Performed By: #### U RTPCR #### [facility] [address] [place] [address] Dr. Dwight Waters Ketones Ql (U) Negative Normal NEGATIVE [facility] Comment on above: Performed By: #### U RTPCR #### [facility] [address] [place] [address] Dr. Dwight Waters LEUKOCYTES TRACE Abnormal NEGATIVE [facility] Comment on above: Performed By: #### U RTPCR #### [facility] [address] [place] [address] Dr. Dwight Waters Nitrite Ql (U) Negative Normal NEGATIVE [facility] Comment on above: Performed By: #### U RTPCR #### [facility] [address] [place] [address] Dr. Dwight Waters pH (U) 6.0 [pH] Normal 5-9 [facility] Comment on above: Performed By: #### U RTPCR #### [facility] [address] [place] [address] Dr. Dwight Waters Protein (U) [Mass/Vol] 30 mg/dL Abnormal NEGATIVE/ TRACE [facility] Comment on above: Performed By: #### U RTPCR #### [facility] [address] [place] [address] Dr. Dwight Waters SPEC GRAVITY >=1.030 Abnormal 1.005-<=1.02 5 [facility] Comment on above: Performed By: #### U RTPCR #### [facility] [address] [place] [address] Dr. Dwight Waters UR MICRO IND INDICATED Normal [facility] Comment on above: Performed By: #### U RTPCR #### [facility] [address] [place] [address] Dr. Dwight Waters Urobilinogen Qn (U) 0.2 {Alyssa'U}/dL Normal 0.2 - 1. 0 [facility] Comment on above: Performed By: #### U RTPCR #### [facility] [address] [place] [address] Dr. Dwight Waters PROF 14(COMP METB)on 022 Albumin [Mass/Vol] 3.7 g/dL Normal 3.4-5.0 [facility] Comment on above: Performed By: #### C MP #### [facility] [address] [place] [address] Dr. Dwight Waters Albumin/Globulin [Mass ratio] 0.9 {ratio} Normal [facility] Comment on above: Performed By: #### C MP #### [facility] [address] [place] [address] Dr. Dwight Waters ALP [Catalytic activity/Vol] 80 U/L Normal 46-116 [facility] Comment on above: Performed By: #### C MP #### [facility] [address] [place] [address] Dr. Dwight Waters ALT [Catalytic activity/Vol] 24 U/L Normal 16-63 [facility] Comment on above: Performed By: #### C MP #### [facility] [address] [place] [address] Dr. Dwight Waters Anion gap [Moles/Vol] 12.9 mmol/L Normal [facility] Comment on above: Performed By: #### C MP #### [facility] [address] [place] [address] Dr. Dwight Waters AST [Catalytic activity/Vol] 17 U/L Normal 15-37 [facility] Comment on above: Performed By: #### C MP #### [facility] [address] [address] [address] Dwight Waters Bilirubin [Mass/Vol] 0.8 mg/dL Normal 0.2-1.0 [facility] Comment on above: Performed By: #### C MP #### [facility] [address] [address] [address] Dwight Waters Calcium [Mass/Vol] 9.4 mg/dL Normal 8.5-10.1 [facility] Comment on above: Performed By: #### C MP #### [facility] [address] [address] [address] Dwight Waters Chloride [Moles/Vol] 106 mmol/L Normal 98-107 [facility] Comment on above: Performed By: #### C MP #### [facility] [address] [address] [address] Dwight Waters CO2 [Moles/Vol] 25.3 mmol/L Normal 21.0-32.0 [facility] Comment on above: Performed By: #### C MP #### [facility] [address] [address] [address] Dwight Waters Creatinine [Mass/Vol] 1.29 mg/dL Normal 0.70-1.30 [facility] Comment on above: Performed By: #### C MP #### [facility] [address] [address] [address] Dwight Waters EGFR-AF LIBYAN >60 Normal >=60 [facility] Comment on above: Performed By: #### C MP #### [facility] [address] [address] [address] Dwight Waters EGFR-NON AF LIBYAN 59 mL/min/1.73m2 Critically low >=60 [facility] Comment on above: Performed By: #### C MP #### [facility] [address] [address] [address] Dwight Waters Globulin (S) [Mass/Vol] 4.2 g/dL Normal [facility] Comment on above: Performed By: #### C MP #### [facility] [address] [address] [address] Dwight Waters Glucose [Mass/Vol] 106 mg/dL Normal 74-106 [facility] Comment on above: Performed By: #### C MP #### [facility] [address] [address] [address] Dwight Waters Potassium [Moles/Vol] 4.2 mmol/L Normal 3.5-5.1 [facility] Comment on above: Performed By: #### C MP #### [facility] [address] [address] [address] Dwight Waters Protein [Mass/Vol] 7.9 g/dL Normal 6.4-8.2 [facility] Comment on above: Performed By: #### C MP #### [facility] [address] [address] [address] Dwight Waters Sodium [Moles/Vol] 140 mmol/L Normal 136-145 [facility] Comment on above: Performed By: #### C MP #### [facility] [address] [address] [address] Dwight Waters Urea nitrogen [Mass/Vol] 22.0 mg/dL Critically high 7.0-18.0 [facility] Comment on above: Performed By: #### C MP #### [facility] [address] [address] [address] Dwight Waters Urea nitrogen/Creatinine [Mass ratio] 17.1 mg/mg Normal [facility] Comment on above: Performed By: #### C MP #### [facility] [address] [address] [address] Dwight Waters URINE MICROSCOPIC ONLYon BACTERIA TRACE Abnormal NONE SEEN [facility] Comment on above: Performed By: #### U RTPCR #### [facility] [address] [address] [address] Dwight Waters Bacteria identified Cx Nom (U) INDICATED Normal [facility] Comment on above: Performed By: #### U RTPCR #### [facility] [address] [place] [address] Dr. Dwight Waters CAST NONE SEEN Normal NONE SEEN [facility] Comment on above: Performed By: #### U RTPCR #### [facility] [address] [place] [address] Dr. Dwight Waters Crystals LM Nom (Urine sed) NONE SEEN Normal NONE SEEN [facility] Comment on above: Performed By: #### U RTPCR #### [facility] [address] [place] [address] Dr. Dwight Waters Epithelial cells LM Ql (Urine sed) NONE SEEN Normal NONE SEEN /RARE [facility] Comment on above: Performed By: #### U RTPCR #### [facility] [address] [place] [address] Dr. Dwight Waters MUCOUS NONE SEEN Normal NONE SEEN [facility] Comment on above: Performed By: #### U RTPCR #### [facility] [address] [place] [address] Dr. Dwight Waters RBC 5-10 Abnormal 0-2 [facility] Comment on above: Performed By: #### U RTPCR #### [facility] [address] [place] [address] Dr. Dwight Waters WBC 10-20 Abnormal NONE SEEN [facility] Comment on above: Performed By: #### U RTPCR #### [facility] [address] [place] [address] Dr. Dwight Waters ALLOSCREEN RECIPIENT (POST T X PRA)on 06-13-2022 AB SPECIFICITY CLASS COMMENT Antibody Specificity testing performed by [employer]. cPRA calculation based on identification of HLA antibody specificities at MFI >2000 and/or presence of CREG antibodies. [facility] Comment on above: Some of the reagents used for testing in the Clinical Histocompatibility Laboratory have yet to be approved by the FDA. Our certification by CLIA to perform high complexity tests allows us to use these reagents in the context of a stringent QC program, and obviates the need for FDA approval.Testing performed by the [facility] Clinical Histocompatibility Laboratory. [facility] number: [id number]. CLIA number: [id number], Director: Carlito Merchant, PhD, D([facility]). ANTIBODY SPECIFICITY INTERPRETATION Detected [facility] CLASS I SPECIFICITIES Not detected [facility] CLASS II SPECIFICITIES Not detected [facility] HLA Ab (S) 0 % 0 [facility] EXTRA MICROon 06-13-2022 [facility] URINE CULTUREOrdered By: Jah Upton on 06-13-2022 Bacteria identified Cx Nom (Unsp spec) Growth [facility] Bacteria identified Cx Nom (Unsp spec) 10,000-50,000 CFU/mL Mixed skin shimon [facility] Comment on above: Multiple bacterial m orphotypes present. Suggest appropriate recollection if clinically indicated. [facility] CBC,PLATELETSon 06-12-2022 Erythrocyte distribution width (RBC) [Ratio] 13.0 % 10.9 - 14.3 % [facility] Hematocrit (Bld) [Volume fraction] 43.2 % 39.6 - 48.8 % [facility] Hemoglobin (Bld) [Mass/Vol] 13.9 g/dL 13.4 - 16.8 g/dL [facility] Interpretation and review of laboratory results Normal [facility] MCH (RBC) [Entitic mass] 28.7 pg 26.1 - 33.3 pg [facility] MCHC (RBC) [Mass/Vol] 32.2 g/dL 31.9 - 36.5 g/dL [facility] MCV (RBC) [Entitic vol] 89.1 fL 79.0 - 94.5 fL [facility] Platelet mean volume (Bld) [Entitic vol] 10.5 fL 8.7 - 12.3 fL [facility] Platelets (Bld) [#/Vol] 269 10*3/uL 146 - 337 K/uL [facility] RBC (Bld) [#/Vol] 4.85 10*6/uL [facility] WBC (Bld) [#/Vol] 7.68 10*3/uL 3.73 - 10. 10 K/uL [facility] CHEM 7 (LYTES,BUN,CREA,GLUC) on 06-12-2022 Anion gap [Moles/Vol] 14 mmol/L 7 - 17 mmol/L [facility] Chloride [Moles/Vol] 106 mmol/L 98 - 10 8 mmol/L [facility] CO2 [Moles/Vol] 25 mmol/L 21 - 31 mmol/L [facility] Creatinine [Mass/Vol] 1.26 mg/dL 0.70 - 1.30 mg/dL [facility] GFR/1.73 sq M.predicted CKD-EPI (S/P/Bld) [Vol rate/Area] 69 >=60 mL/min/1.73m 2 [facility] Comment on above: Reported eGFR is bas ed on the CKD-EPI 2020 equation using creatinine, age, and sex. Glucose [Mass/Vol] 83 mg/dL 70 - 99 mg/dL [facility] Osmolality Calc [Osmolality] 295 [facility] Potassium [Moles/Vol] 3.8 mmol/L 3.5 - 5.0 mmol/L [facility] Sodium [Moles/Vol] 141 mmol/L 135 - 145 mmol/L [facility] Urea nitrogen [Mass/Vol] 18 mg/dL 7 - 25 mg/dL [facility] Urea nitrogen/Creatinine [Mass ratio] 14 mg/mg [facility] GGTon 06-12-2022 Gamma glutamyl transferase [Catalytic activity/Vol] 20 U/L 8 - 64 U/L [facility] HEMOGLOBIN [id number] By: [employer] on 06-12-2022 Average glucose Estimated from glycated hemoglobin (Bld) [Mass/Vol] 126 mg/dL [facility] HbA1c (Bld) [Mass fraction] 6.0 % High 4.7 - 5.6 % [facility] Interpretation and review of laboratory results Abnormal [facility] HEPATIC FUNCTION PANELon Albumin [Mass/Vol] 4.3 g/dL 3.5 - 5.0 g/dL [facility] ALP [Catalytic activity/Vol] 78 U/L 32 - 126 U/L [facility] ALT [Catalytic activity/Vol] 12 U/L 10 - 52 U/L [facility] AST [Catalytic activity/Vol] 16 U/L 10 - 39 U/L [facility] Bilirubin [Mass/Vol] 1.0 mg/dL <1.5 [facility] Bilirubin.direct [Mass/Vol] 0.2 mg/dL <0.3 [facility] Protein [Mass/Vol] 7.5 g/dL 6.4 - 8.3 g/dL [facility] No Panel Informationon 06-12 Interpretation and review of laboratory results Normal [facility] PTH INTACTOrdered By: Marli Lizarraga on 06-12-2022 Interpretation and review of laboratory results Abnormal [facility] Parathyrin.intact [Mass/Vol] 79.7 pg/mL High 14.0 - 72.0 pg/mL [facility] URINALYSIS REFLEX TO CULTURE PERFORMABLEon 06-12-2022 Appearance (U) Clear Clear [facility] Bacteria LM Ql (Urine sed) ABSENT ABSENT [facility] Color (U) Yellow Yellow [facility] Epithelial cells.squamous LM Ql (Urine sed) 1/hpf = 1+ 1/hpf = 1+, 2-5/hpf = 2+, 0/hpf = 0+, ABSENT [facility] Glucose Test strip (U) [Mass/Vol] Negative Negative [facility] Interpretation and review of laboratory results Abnormal [facility] Ketones (U) [Mass/Vol] Trace Abnormal Negative [facility] Leukocyte esterase Test strip Ql (U) Small Abnormal Negative [facility] Nitrite Ql (U) Negative Negative [facility] pH (U) 5.5 [pH] 5.0 - 7.0 [facility] Protein (U) [Mass/Vol] 30 mg/dL Abnormal Negative [facility] RBC (U) [#/Vol] Trace Abnormal Negative [facility] RBC LM.HPF (Urine sed) [#/Area] 0-2 0 - 2 /[facility] Specific gravity (U) [Rel density] 1.026 [facility] Urobilinogen (U) [Mass/Vol] 0.2 E.U./dL 0.2 E.U/dL, 1.0 E.U/dL [facility] WBC LM.HPF (Urine sed) [#/Area] 10-20 Abnormal 0 - 5 /H[facility] PROTEIN/CREA RATIO, RA NDOMon 06-12-2022 Creatinine (24H U) [Mass/Vol] 231.68 mg/dL [facility] Protein Unsp time (U) [Mass/Vol] 49 mg/dL [facility] Protein/Creatinine (U) [Mass ratio] 0.211 mg[facility]g [facility] FK[facility] (TA[facility]IMUS) WHOLE BLO ODon 06-09-2022 Tacrolimus (FK506), Blood 9.8 ng/mL Normal 2.0-20.0 [facility] Comment on above: Result Comment: Trou gh (immediately following transplant) 15.0 . Trough (steady state, 2 weeks or more after transplant): 3.0 - 8.0 . Performed by LC-MS/MS technology. Performed By: #### U RTPCR #### [facility] [address] [address] [address] Dwight Waters ALBUMINon 06-06-2022 Albumin [Mass/Vol] 3.8 g/dL Normal 3.4-5.0 [facility] Comment on above: Performed By: #### C MP #### [facility] [address] [address] [address] Dwight Waters ALKALINE PHOSPHAon ALP [Catalytic activity/Vol] 82 U/L Normal 46-116 [facility] Comment on above: Performed By: #### C MP #### [facility] [address] [address] [address] Dwight Waters BILIRUBIN CONJUGATED (DIRECT )on 06-06-2022 BILI, CONJUGATED 0.2 mg/dL Normal 0.0-0.2 [facility] Comment on above: Performed By: #### C BC #### [facility] [address] [place] [address] Dr. Dwight Waters BILIRUBIN TOTALon 06-06-2022 Bilirubin [Mass/Vol] 1.0 mg/dL Normal 0.2-1.0 [facility] Comment on above: Performed By: #### C BC #### [facility] [address] [place] [address] Dr. Dwight Waters BUNon 06-06-2022 Urea nitrogen [Mass/Vol] 18.0 mg/dL Normal 7.0-18.0 [facility] Comment on above: Performed By: #### C BC #### [facility] [address] [place] [address] Dr. Dwight Waters CALCIUMon 06-06-2022 Calcium [Mass/Vol] 9.4 mg/dL Normal 8.5-10.1 [facility] Comment on above: Performed By: #### C MP #### [facility] [address] [place] [address] Dr. Dwight Waters CBC AUTO DIFFon 06-06-2022 BASO # 0.1 103/ul Normal 0.0-0.1 [facility] Comment on above: Performed By: #### U RTPCR #### [facility] [address] [place] [address] Dr. Dwight Waters Basophils/100 WBC (Bld) 0.8 % Normal 0.2-2.0 [facility] Comment on above: Performed By: #### U RTPCR #### [facility] [address] [place] [address] Dr. Dwight Waters EO # 0.3 103/ul Normal 0.0-0.7 [facility] Comment on above: Performed By: #### U RTPCR #### [facility] [address] [place] [address] Dr. Dwight Waters Eosinophils/100 WBC (Bld) 3.3 % Normal 0.9-7.0 [facility] Comment on above: Performed By: #### U RTPCR #### [facility] [address] [place] [address] Dr. Dwight Waters Erythrocyte distribution width (RBC) [Ratio] 12.4 % Normal 11.0-15.0 [facility] Comment on above: Performed By: #### U RTPCR #### [facility] [address] [place] [address] Dr. Dwight Waters Hematocrit (Bld) [Volume fraction] 45.1 % Normal 42.0-54.0 [facility] Comment on above: Performed By: #### U RTPCR #### [facility] [address] [place] [address] Dr. Dwight Waters Hemoglobin (Bld) [Mass/Vol] 14.4 g/dL Normal 14.0-18.0 [facility] Comment on above: Performed By: #### U RTPCR #### [facility] [address] [place] [address] Dr. Dwight Waters IG # 0.01 10e3/ul Normal 0.00-0.03 [facility] Comment on above: Performed By: #### U RTPCR #### [facility] [address] [place] [address] Dr. Dwight Waters IG % 0.1 % Normal 0.0-0.5 [facility] Comment on above: Performed By: #### U RTPCR #### [facility] [address] [place] [address] Dr. Dwight Waters LYMPH # 2.2 103/ul Normal 1.2-3.8 [facility] Comment on above: Performed By: #### U RTPCR #### [facility] [address] [place] [address] Dr. Dwight Waters Lymphocytes/100 WBC (Bld) 30.0 % Normal 20.5-60.0 [facility] Comment on above: Performed By: #### U RTPCR #### [facility] [address] [place] [address] Dr. Dwight Waters MANUAL DIFF REQ NO Normal [facility] Comment on above: Performed By: #### U RTPCR #### [facility] [address] [address] [address] Dwight Waters MCH (RBC) [Entitic mass] 28.2 pg Normal 25.9-34.0 [facility] Comment on above: Performed By: #### U RTPCR #### [facility] [address] [place] [address] Dr. Dwight Waters MCHC (RBC) [Mass/Vol] 31.9 g/dL Normal 29.9-35.2 [facility] Comment on above: Performed By: #### U RTPCR #### [facility] [address] [place] [address] Dr. Dwight Waters MCV (RBC) [Entitic vol] 88.3 fL Normal 80.0-94.0 [facility] Comment on above: Performed By: #### U RTPCR #### [facility] [address] [place] [address] Dr. Dwight Waters MONO # 0.6 103/ul Normal 0.3-0.8 [facility] Comment on above: Performed By: #### U RTPCR #### [facility] [address] [place] [address] Dr. Dwight Waters Monocytes/100 WBC (Bld) 8.2 % Normal 1.7-12.0 [facility] Comment on above: Performed By: #### U RTPCR #### [facility] [address] [place] [address] Dr. Dwight Waters NEUT # 4.3 103/ul Normal 1.4-6.5 [facility] Comment on above: Performed By: #### U RTPCR #### [facility] [address] [place] [address] Dr. Dwight Waters Neutrophils/100 WBC (Bld) 57.6 % Normal 43.0-75.0 [facility] Comment on above: Performed By: #### U RTPCR #### [facility] [address] [place] [address] Dr. Dwight Waters Platelet mean volume (Bld) [Entitic vol] 9.7 fL Normal 9.5-13.5 [facility] Comment on above: Performed By: #### U RTPCR #### [facility] [address] [address] [address] Dwight Waters PLT 297 103/ul Normal 150-450 [facility] Comment on above: Performed By: #### U RTPCR #### [facility] [address] [address] [address] Dwight Waters RBC 5.11 106/ul Normal 4.70-6.10 [facility] Comment on above: Performed By: #### U RTPCR #### [facility] [address] [address] [address] Dwight Waters WBC 7.5 103/ul Normal 4.0-11.0 [facility] Comment on above: Performed By: #### U RTPCR #### [facility] [address] [place] [address] Dr. Dwight Waters CHLORIDEon 06-06-2022 Chloride [Moles/Vol] 107 mmol/L Normal 98-107 [facility] Comment on above: Performed By: #### C BC #### [facility] [address] [place] [address] Dr. Dwight Waters CO2on 06-06-2022 CO2 [Moles/Vol] 27.4 mmol/L Normal 21.0-32.0 [facility] Comment on above: Performed By: #### C BC #### [facility] [address] [place] [address] Dr. Dwight Waters CREATININEon 06-06-2022 Creatinine [Mass/Vol] 1.20 mg/dL Normal 0.70-1.30 [facility] Comment on above: Performed By: #### C BC #### [facility] [address] [place] [address] Dr. Dwight Waters EGFR-AF LIBYAN >60 Normal >=60 [facility] Comment on above: Performed By: #### C BC #### [facility] [address] [place] [address] Dr. Dwight Waters EGFR-NON AF LIBYAN >60 Normal >=60 [facility] Comment on above: Performed By: #### C BC #### [facility] [address] [place] [address] Dr. Dwight Waters GGTon 06-06-2022 Gamma glutamyl transferase [Catalytic activity/Vol] 29 U/L Normal 15-85 [facility] Comment on above: Performed By: #### C BC #### [facility] [address] [place] [address] Dr. Dwight Waters GLUCOSE BLOODon 06-06-2022 Glucose [Mass/Vol] 112 mg/dL Critically high 74-106 [facility] Comment on above: Performed By: #### C BC #### [facility] [address] [place] [address] Dr. Dwight Waters MAGNESIUMon 06-06-2022 Magnesium [Mass/Vol] 1.3 mg/dL Critically low 1.8-2.4 [facility] Comment on above: Performed By: #### C MP #### [facility] [address] [place] [address] Dr. Dwight Waters NAon 06-06-2022 Sodium [Moles/Vol] 141 mmol/L Normal 136-145 [facility] Comment on above: Performed By: #### C MP #### [facility] [address] [place] [address] Dr. Dwight Waters PHOSPHORUSon 06-06-2022 Phosphate [Mass/Vol] 3.1 mg/dL Normal 2.6-4.7 [facility] Comment on above: Performed By: #### C MP #### [facility] [address] [place] [address] Dr. Dwight Waters POTASSIUMon 06-06-2022 Potassium [Moles/Vol] 4.3 mmol/L Normal 3.5-5.1 [facility] Comment on above: Performed By: #### C BC #### [facility] [address] [place] [address] Dr. Dwight Waters SGOTon 06-06-2022 AST [Catalytic activity/Vol] 16 U/L Normal 15-37 [facility] Comment on above: Performed By: #### C BC #### [facility] [address] [place], [place] [id number] Dr. Dwight Waters SGPTon 06-06-2022 ALT [Catalytic activity/Vol] 50 U/L Normal 16-63 [facility] Comment on above: Performed By: #### C #### [facility] [address] [place] [address] Dr. Dwight Waters Bacteria identified Cx Nom ( Bld)on 05-21-2022 Bacteria identified Cx Nom (Unsp spec) NO GROWTH DAY 5 OF 5 [facility] Results may be compr omised due to volume of BACT\ALERT bottle exceeding 10mLs . The optimal blood volume is 8-10 mls per aerobic/anaerobic blood culture bottle. [facility] CALCIUMon 05-20-2022 Calcium [Mass/Vol] 9.1 mg/dL 8.6 - 10. 5 mg/dL [facility] CBC,PLATELETSon 05-20-2022 Erythrocyte distribution width (RBC) [Ratio] 12.5 % 10.9 - 14.3 % [facility] Hematocrit (Bld) [Volume fraction] 37.1 % Low 39.6 - 48.8 % [facility] Hemoglobin (Bld) [Mass/Vol] 12.3 g/dL Low 13.4 - 16.8 g/dL [facility] Interpretation and review of laboratory results Abnormal [facility] MCH (RBC) [Entitic mass] 28.9 pg 26.1 - 33.3 pg [facility] MCHC (RBC) [Mass/Vol] 33.2 g/dL 31.9 - 36.5 g/dL [facility] MCV (RBC) [Entitic vol] 87.3 fL 79.0 - 94.5 fL [facility] Platelet mean volume (Bld) [Entitic vol] 9.9 fL 8.7 - 12.3 fL [facility] Platelets (Bld) [#/Vol] 234 10*3/uL 146 - 337 K/uL [facility] RBC (Bld) [#/Vol] 4.25 10*6/uL Low [facility] WBC (Bld) [#/Vol] 6.31 10*3/uL 3.73 - 10. 10 K/uL [facility] CHEM 7 (LYTES,BUN,CREA,GLUC) on 05-20-2022 Anion gap [Moles/Vol] 15 mmol/L 7 - 17 mmol/L [facility] Chloride [Moles/Vol] 111 mmol/L High 98 - 10 8 mmol/L [facility] CO2 [Moles/Vol] 22 mmol/L 21 - 31 mmol/L [facility] Creatinine [Mass/Vol] 1.10 mg/dL 0.70 - 1.30 mg/dL [facility] GFR/1.73 sq M.predicted CKD-EPI (S/P/Bld) [Vol rate/Area] 81 >=60 mL/min/1.73m 2 [facility] Comment on above: Reported eGFR is bas ed on the CKD-EPI 2020 equation using creatinine, age, and sex. Glucose [Mass/Vol] 92 mg/dL 70 - 99 mg/dL [facility] Interpretation and review of laboratory results Abnormal [facility] Osmolality Calc [Osmolality] 302 [facility] Potassium [Moles/Vol] 4.4 mmol/L 3.5 - 5.0 mmol/L [facility] Sodium [Moles/Vol] 144 mmol/L 135 - 145 mmol/L [facility] Urea nitrogen [Mass/Vol] 18 mg/dL 7 - 25 mg/dL [facility] Urea nitrogen/Creatinine [Mass ratio] 16 mg/mg [facility] MAGNESIUMon 05-20-2022 Interpretation and review of laboratory results Abnormal [facility] Magnesium [Mass/Vol] 1.5 mg/dL Low 1.6 - 2 .6 mg/dL [facility] No Panel Informationon 05-20 Interpretation and review of laboratory results Normal [facility] PHOSPHATE, INORGANICon 05-20 Phosphate [Mass/Vol] 3.3 mg/dL 2.2 - 4 .6 mg/dL [facility] RF Unspecified body region V iews [...] projections of kidneys, ureters, and bladder. FINDINGS: Grain Merchandiser images: Grain Merchandiser radiographs of the abdomen reveal a nonobstructive [...] Contrast refluxes up the ureter to the [place]e right kidney that is grossly normal appearing. [...] projections of kidneys, ureters, and bladder. FINDINGS: Grain Merchandiser images: Grain Merchandiser radiographs of the abdomen reveal a nonobstructive [...] Contrast refluxes up the ureter to the [place] right kidney that is grossly normal appearing. [...] I have reviewed and approved this report. [facility] Radiology Study observation (narrative) [facility] RF Unspecified body region V iews during surgeryOrdered By: Lizz Campos on 05-20-2022 [facility] Work Phone: CALCIUMon 05-19-2022 Calcium [Mass/Vol] 9.2 mg/dL 8.6 - 10. 5 [facility] Calcium [Mass/Vol] 8.6 mg/dL 8.6 - 10. 5 mg/dL [facility] CBC,PLATELETSon 05-19-2022 Erythrocyte distribution width (RBC) [Ratio] 12.4 % 10.9 - 14.3 % [facility] Hematocrit (Bld) [Volume fraction] 38.0 % Low 39.6 - 48.8 % [facility] Hemoglobin (Bld) [Mass/Vol] 12.0 g/dL Low 13.4 - 16.8 g/dL [facility] Interpretation and review of laboratory results Abnormal [facility] MCH (RBC) [Entitic mass] 28.6 pg 26.1 - 33.3 pg [facility] MCHC (RBC) [Mass/Vol] 31.6 g/dL Low 31.9 - 36.5 g/dL [facility] MCV (RBC) [Entitic vol] 90.5 fL 79.0 - 94.5 fL [facility] Platelet mean volume (Bld) [Entitic vol] 9.7 fL 8.7 - 12.3 fL [facility] Platelets (Bld) [#/Vol] 199 10*3/uL 146 - 337 K/uL [facility] RBC (Bld) [#/Vol] 4.20 10*6/uL Low [facility] WBC (Bld) [#/Vol] 6.81 10*3/uL 3.73 - 10. 10 K/uL [facility] CHEM 7 (LYTES,BUN,CREA,GLUC) on 05-19-2022 Anion gap [Moles/Vol] 13 mmol/L 7 - 17 mmol/L [facility] Chloride [Moles/Vol] 105 mmol/L 98 - 10 8 mmol/L [facility] CO2 [Moles/Vol] 30 mmol/L 21 - 31 mmol/L [facility] Creatinine [Mass/Vol] 1.39 mg/dL High 0.70 - 1.30 mg/dL [facility] GFR/1.73 sq M.predicted CKD-EPI (S/P/Bld) [Vol rate/Area] 61 >=60 mL/min/1.73m 2 [facility] Comment on above: Reported eGFR is bas ed on the CKD-EPI 2021 equation using creatinine, age, and sex. Glucose [Mass/Vol] 121 mg/dL High 70 - 99 mg/dL [facility] Interpretation and review of laboratory results Abnormal [facility] Osmolality Calc [Osmolality] 303 [facility] Potassium [Moles/Vol] 3.8 mmol/L 3.5 - 5.0 mmol/L [facility] Sodium [Moles/Vol] 144 mmol/L 135 - 145 mmol/L [facility] Urea nitrogen [Mass/Vol] 18 mg/dL 7 - 25 mg/dL [facility] Urea nitrogen/Creatinine [Mass ratio] 13 mg/mg [facility] Anion gap [Moles/Vol] 15 mmol/L 7 - 17 mmol/L [facility] Chloride [Moles/Vol] 106 mmol/L 98 - 10 8 mmol/L [facility] CO2 [Moles/Vol] 24 mmol/L 21 - 31 mmol/L [facility] Creatinine [Mass/Vol] 1.46 mg/dL High 0.70 - 1.30 mg/dL [facility] GFR/1.73 sq M.predicted CKD-EPI (S/P/Bld) [Vol rate/Area] 58 Low >=60 mL/min/1.73m 2 [facility] Comment on above: Reported eGFR is bas ed on the CKD-EPI 202 equation using creatinine, age, and sex. Glucose [Mass/Vol] 103 mg/dL High 70 - 99 mg/dL [facility] Interpretation and review of laboratory results Abnormal [facility] Osmolality Calc [Osmolality] 298 [facility] Potassium [Moles/Vol] 3.9 mmol/L 3.5 - 5.0 mmol/L [facility] Sodium [Moles/Vol] 141 mmol/L 135 - 145 mmol/L [facility] Urea nitrogen [Mass/Vol] 21 mg/dL 7 - 25 mg/dL [facility] Urea nitrogen/Creatinine [Mass ratio] 14 mg/mg [facility] MAGNESIUMon 05-19-2022 Magnesium [Mass/Vol] 2.0 mg/dL 1.6 - 2 .6 mg/dL [facility] Magnesium [Mass/Vol] 1.7 mg/dL 1.6 - 2 .6 mg/dL [facility] No Panel Informationon 05-19 Interpretation and review of laboratory results Normal [facility] Interpretation and review of laboratory results Normal [facility] PHOSPHATE, INORGANICon 05-19 Phosphate [Mass/Vol] 3.0 mg/dL 2.2 - 4 .6 mg/dL [facility] Phosphate [Mass/Vol] 2.7 mg/dL 2.2 - 4 .6 mg/dL [facility] CALCIUMon 05-18-2022 Calcium [Mass/Vol] 9.1 mg/dL 8.6 - 10. 5 mg/dL [facility] CBC,PLATELETSon 05-18-2022 Erythrocyte distribution width (RBC) [Ratio] 12.5 % 10.9 - 14.3 % [facility] Hematocrit (Bld) [Volume fraction] 37.3 % Low 39.6 - 48.8 % [facility] Hemoglobin (Bld) [Mass/Vol] 11.9 g/dL Low 13.4 - 16.8 g/dL [facility] Interpretation and review of laboratory results Abnormal [facility] MCH (RBC) [Entitic mass] 28.9 pg 26.1 - 33.3 pg [facility] MCHC (RBC) [Mass/Vol] 31.9 g/dL 31.9 - 36.5 g/dL [facility] MCV (RBC) [Entitic vol] 90.5 fL 79.0 - 94.5 fL [facility] Platelet mean volume (Bld) [Entitic vol] 10.1 fL 8.7 - 12.3 fL [facility] Platelets (Bld) [#/Vol] 189 10*3/uL 146 - 337 K/uL [facility] RBC (Bld) [#/Vol] 4.12 10*6/uL Low [facility] WBC (Bld) [#/Vol] 10.19 10*3/uL High 3.73 - 10 .10 [facility] (LYTES,BUN,CREA,GLUC) on 05-18-2022 Anion gap [Moles/Vol] 13 mmol/L 7 - 17 mmol/L [facility] Chloride [Moles/Vol] 102 mmol/L 98 - 10 8 mmol/L [facility] CO2 [Moles/Vol] 26 mmol/L 21 - 31 mmol/L [facility] Creatinine [Mass/Vol] 1.91 mg/dL High 0.70 - 1.30 mg/dL [facility] GFR/1.73 sq M.predicted CKD-EPI (S/P/Bld) [Vol rate/Area] 42 Low >=60 mL/min/1.73m 2 [facility] Comment on above: Reported eGFR is bas ed on the CKD-EPI 2020 equation using creatinine, age, and sex. Glucose [Mass/Vol] 158 mg/dL High 70 - 99 mg/dL [facility] Osmolality Calc [Osmolality] 297 [facility] Potassium [Moles/Vol] 4.0 mmol/L 3.5 - 5.0 mmol/L [facility] Sodium [Moles/Vol] 137 mmol/L 135 - 145 mmol/L [facility] Urea nitrogen [Mass/Vol] 30 mg/dL High 7 - 25 mg/dL [facility] Urea nitrogen/Creatinine [Mass ratio] 16 mg/mg [facility] CHEM 7 (LYTES,BUN,CREA,GLUC) Ordered By: Tamiko Thapa on 05-18-2022 Anion gap [Moles/Vol] 13 mmol/L 7 - 17 mmol/L [facility] Chloride [Moles/Vol] 104 mmol/L 98 - 10 8 mmol/L [facility] CO2 [Moles/Vol] 26 mmol/L 21 - 31 mmol/L [facility] Creatinine [Mass/Vol] 2.96 mg/dL High 0.70 - 1.30 mg/dL [facility] GFR/1.73 sq M.predicted CKD-EPI (S/P/Bld) [Vol rate/Area] 25 Low >=60 mL/min/1.73m 2 [facility] Comment on above: Reported eGFR is bas ed on the CKD-EPI 2020 equation using creatinine, age, and sex. Glucose [Mass/Vol] 136 mg/dL High 70 - 99 mg/dL [facility] Interpretation and review of laboratory results Abnormal [facility] Osmolality Calc [Osmolality] 304 [facility] Potassium [Moles/Vol] 4.2 mmol/L 3.5 - 5.0 mmol/L [facility] Sodium [Moles/Vol] 139 mmol/L 135 - 145 mmol/L [facility] Urea nitrogen [Mass/Vol] 41 mg/dL High 7 - 25 mg/dL [facility] Urea nitrogen/Creatinine [Mass ratio] 14 mg/mg [facility] MAGNESIUMon 05-18-2022 Magnesium [Mass/Vol] 2.2 mg/dL 1.6 - 2 .6 mg/dL [facility] Interpretation and review of laboratory results Normal [facility] Magnesium [Mass/Vol] 1.7 mg/dL 1.6 - 2 .6 mg/dL [facility] No Panel Informationon 05-18 Interpretation and review of laboratory results Abnormal [facility] Interpretation and review of laboratory results Normal [facility] PHOSPHATE, INORGANICon 05-18 Phosphate [Mass/Vol] 2.0 mg/dL Low 2.2 - 4 .6 mg/dL [facility] Interpretation and review of laboratory results Normal [facility] Phosphate [Mass/Vol] 2.8 mg/dL 2.2 - 4 .6 mg/dL [facility] PT,INR,PTTon 05-18-2022 aPTT Coag (PPP) [Time] 31.0 s [facility] INR Coag (Bld) [Relative time] 1.1 {INR} [facility] Interpretation and review of laboratory results Abnormal [facility] PT Coag (PPP) [Time] 14.4 s High [facility] URINE CULTUREOrdered By: Sylvia Campos on 05-18-2022 Bacteria identified Cx Nom (Unsp spec) No Growth [facility] CBC,PLATELETSon 05-17-2022 Erythrocyte distribution width (RBC) [Ratio] 12.8 % 10.9 - 14.3 % [facility] Hematocrit (Bld) [Volume fraction] 42.8 % 39.6 - 48.8 % [facility] Hemoglobin (Bld) [Mass/Vol] 13.3 g/dL Low 13.4 - 16.8 g/dL [facility] Interpretation and review of laboratory results Abnormal [facility] MCH (RBC) [Entitic mass] 28.9 pg 26.1 - 33.3 pg [facility] MCHC (RBC) [Mass/Vol] 31.1 g/dL Low 31.9 - 36.5 g/dL [facility] MCV (RBC) [Entitic vol] 92.8 fL 79.0 - 94.5 fL [facility] Platelet mean volume (Bld) [Entitic vol] 10.3 fL 8.7 - 12.3 fL [facility] Platelets (Bld) [#/Vol] 188 10*3/uL 146 - 337 K/uL [facility] RBC (Bld) [#/Vol] 4.61 10*6/uL [facility] WBC (Bld) [#/Vol] 16.61 10*3/uL High 3.73 - 10 .10 K/uL [facility] CHEM 7 (LYTES,BUN,CREA,GLUC) Ordered By: Kaylah Mc on 05-17-2022 Anion gap [Moles/Vol] 15 mmol/L 7 - 17 mmol/L [facility] Chloride [Moles/Vol] 103 mmol/L 98 - 10 8 mmol/L [facility] CO2 [Moles/Vol] 23 mmol/L 21 - 31 mmol/L [facility] Creatinine [Mass/Vol] 5.95 mg/dL High 0.70 - 1.30 mg/dL [facility] GFR/1.73 sq M.predicted CKD-EPI (S/P/Bld) [Vol rate/Area] 11 Low >=60 mL/min/1.73m 2 [facility] Comment on above: Reported eGFR is bas ed on the CKD-EPI 2020 equation using creatinine, age, and sex. Glucose [Mass/Vol] 165 mg/dL High 70 - 99 mg/dL [facility] Interpretation and review of laboratory results Abnormal [facility] Osmolality Calc [Osmolality] 305 [facility] Potassium [Moles/Vol] 4.6 mmol/L 3.5 - 5.0 mmol/L [facility] Sodium [Moles/Vol] 136 mmol/L 135 - 145 mmol/L [facility] Urea nitrogen [Mass/Vol] 52 mg/dL High 7 - 25 mg/dL [facility] Urea nitrogen/Creatinine [Mass ratio] 9 mg/mg [facility] CHEM 7 (LYTES,BUN,CREA,GLUC) Ordered By: Kehinde Gutierrez on 05-17-2022 Anion gap [Moles/Vol] 24 mmol/L High 7 - 17 mmol/L [facility] Chloride [Moles/Vol] 100 mmol/L 98 - 10 8 mmol/L [facility] CO2 [Moles/Vol] 16 mmol/L Low 21 - 31 mmol/L [facility] Creatinine [Mass/Vol] 8.08 mg/dL High 0.70 - 1.30 mg/dL [facility] GFR/1.73 sq M.predicted CKD-EPI (S/P/Bld) [Vol rate/Area] 7 Low >=60 mL/min/1.73m 2 [facility] Comment on above: Reported eGFR is bas ed on the CKD-EPI 2020 equation using creatinine, age, and sex. Glucose [Mass/Vol] 164 mg/dL High 70 - 99 mg/dL [facility] Interpretation and review of laboratory results Abnormal [facility] Osmolality Calc [Osmolality] 305 [facility] Potassium [Moles/Vol] 5.0 mmol/L 3.5 - 5.0 mmol/L [facility] Sodium [Moles/Vol] 135 mmol/L 135 - 145 mmol/L [facility] Urea nitrogen [Mass/Vol] 56 mg/dL High 7 - 25 mg/dL [facility] Urea nitrogen/Creatinine [Mass ratio] 7 mg/mg [facility] LAVENDER TOP TUBEon 05-17-20 [facility] MAGNESIUMon 05-17-2022 Interpretation and review of laboratory results Normal [facility] Magnesium [Mass/Vol] 1.8 mg/dL 1.6 - 2 .6 mg/dL [facility] Interpretation and review of laboratory results Normal [facility] Magnesium [Mass/Vol] 1.6 mg/dL 1.6 - 2 .6 mg/dL [facility] No Panel Informationon 05-17 [facility] PHOSPHATE, INORGANICon 05-17 Interpretation and review of laboratory results Abnormal [facility] Phosphate [Mass/Vol] 4.9 mg/dL High 2.2 - 4 .6 mg/dL [facility] PT,INR,PTTon 05-17-2022 aPTT Coag (PPP) [Time] 33.0 s [facility] INR Coag (Bld) [Relative time] 1.3 {INR} High [facility] Interpretation and review of laboratory results Abnormal [facility] PT Coag (PPP) [Time] 15.7 s High [facility] Portable XR Chest Viewson IMPRESSION: No [...] Stable cardiomegaly. IMPRESSION IMPRESSION: No acute findings. [facility] Radiology Study observation (narrative) [facility] Portable XR Chest ViewsOrder ed By: David Sanz on 05-17-2022 [facility] Work Phone: URINALYSISOrdered By: Michael patel Ma on 05-17-2022 Appearance (U) Cloudy Abnormal Clear [facility] Comment on above: Results may be inacc urate due to color interference. Clinical correlation recommended. Bacteria LM Ql (Urine sed) ABSENT ABSENT [facility] Color (U) Red Abnormal Yellow [facility] Comment on above: Results may be inacc urate due to color interference. Clinical correlation recommended. Epithelial cells.squamous LM Ql (Urine sed) ABSENT 1/hpf = 1+, 2-5/hpf = 2+, 0/hpf = 0+, ABSENT [facility] Glucose Test strip (U) [Mass/Vol] Negative Negative [facility] Comment on above: Results may be inacc urate due to color interference. Clinical correlation recommended. Interpretation and review of laboratory results Abnormal [facility] Ketones (U) [Mass/Vol] Trace Abnormal Negative [facility] Comment on above: Results may be inacc urate due to color interference. Clinical correlation recommended. Leukocyte esterase Test strip Ql (U) Large Abnormal Negative [facility] Comment on above: Results may be inacc urate due to color interference. Clinical correlation recommended. Nitrite Ql (U) Negative Negative [facility] Comment on above: Results may be inacc urate due to color interference. Clinical correlation recommended. pH (U) 5.0 [pH] 5.0 - 7.0 [facility] Comment on above: Results may be inacc urate due to color interference. Clinical correlation recommended. Protein (U) [Mass/Vol] mg/dL Abnormal Negative [facility] Comment on above: Results may be inacc urate due to color interference. Clinical correlation recommended. RBC (U) [#/Vol] Large Abnormal Negative [facility] Comment on above: Results may be inacc urate due to color interference. Clinical correlation recommended. RBC LM.HPF (Urine sed) [#/Area] /[HPF] Abnormal 0 - 2 /HPF [facility] Specific gravity (U) [Rel density] 1.016 [facility] Comment on above: Results may be inacc urate due to color interference. Clinical correlation recommended. Urobilinogen (U) [Mass/Vol] 0.2 E.U./dL 0.2 E.U/dL, 1.0 E.U/dL [facility] Comment on above: Results may be inacc urate due to color interference. Clinical correlation recommended. WBC LM.HPF (Urine sed) [#/Area] /[HPF] Abnormal 0 - 5 /HPF [facility] URINE CULTUREOrdered By: Tyler Tiwari on 05-17-2022 Bacteria identified Cx Nom (Unsp spec) No Growth [facility] CBC,PLATELETSon 05-16-2022 Erythrocyte distribution width (RBC) [Ratio] 12.9 % 10.9 - 14.3 % [facility] Hematocrit (Bld) [Volume fraction] 46.5 % 39.6 - 48.8 % [facility] Hemoglobin (Bld) [Mass/Vol] 14.7 g/dL 13.4 - 16.8 g/dL [facility] Interpretation and review of laboratory results Abnormal [facility] MCH (RBC) [Entitic mass] 28.3 pg 26.1 - 33.3 pg [facility] MCHC (RBC) [Mass/Vol] 31.6 g/dL Low 31.9 - 36.5 g/dL [facility] MCV (RBC) [Entitic vol] 89.6 fL 79.0 - 94.5 fL [facility] Platelet mean volume (Bld) [Entitic vol] 10.3 fL 8.7 - 12.3 fL [facility] Platelets (Bld) [#/Vol] 188 10*3/uL 146 - 337 K/uL [facility] RBC (Bld) [#/Vol] 5.19 10*6/uL [facility] WBC (Bld) [#/Vol] 12.55 10*3/uL High 3.73 - 10 .10 K/uL [facility] CHEM 7 (LYTES,BUN,CREA,GLUC) Ordered By: Alma Pena on 05-16-2022 Anion gap [Moles/Vol] 14 mmol/L 7 - 17 mmol/L [facility] Chloride [Moles/Vol] 103 mmol/L 98 - 10 8 mmol/L [facility] CO2 [Moles/Vol] 22 mmol/L 21 - 31 mmol/L [facility] Creatinine [Mass/Vol] 6.09 mg/dL High 0.70 - 1.30 mg/dL [facility] GFR/1.73 sq M.predicted CKD-EPI (S/P/Bld) [Vol rate/Area] 10 Low >=60 mL/min/1.73m 2 [facility] Comment on above: Reported eGFR is bas ed on the CKD-EPI 2020 equation using creatinine, age, and sex. Glucose [Mass/Vol] 134 mg/dL High 70 - 99 mg/dL [facility] Interpretation and review of laboratory results Abnormal [facility] Osmolality Calc [Osmolality] 298 [facility] Potassium [Moles/Vol] 4.9 mmol/L 3.5 - 5.0 mmol/L [facility] Sodium [Moles/Vol] 134 mmol/L Low 135 - 145 mmol/L [facility] Comment on above: Results inconsistent with previous results Urea nitrogen [Mass/Vol] 49 mg/dL High 7 - 25 mg/dL [facility] Urea nitrogen/Creatinine [Mass ratio] 8 [facility] 7 (LYTES,BUN,CREA,GLUC) on 05-16-2022 Anion gap [Moles/Vol] 17 mmol/L 7 - 17 mmol/L [facility] Chloride [Moles/Vol] 106 mmol/L 98 - 10 8 mmol/L [facility] CO2 [Moles/Vol] 22 mmol/L 21 - 31 mmol/L [facility] Creatinine [Mass/Vol] 5.23 mg/dL High 0.70 - 1.30 mg/dL [facility] GFR/1.73 sq M.predicted CKD-EPI (S/P/Bld) [Vol rate/Area] 13 Low >=60 mL/min/1.73m 2 [facility] Comment on above: Reported eGFR is bas ed on the CKD-EPI 2020 equation using creatinine, age, and sex. Glucose [Mass/Vol] 116 mg/dL High 70 - 99 mg/dL [facility] Interpretation and review of laboratory results Abnormal [facility] Osmolality Calc [Osmolality] 305 [facility] Potassium [Moles/Vol] 4.6 mmol/L 3.5 - 5.0 mmol/L [facility] Sodium [Moles/Vol] 140 mmol/L 135 - 145 mmol/L [facility] Urea nitrogen [Mass/Vol] 42 mg/dL High 7 - 25 mg/dL [facility] Urea nitrogen/Creatinine [Mass ratio] 8 mg/mg [facility] EXTRA MICROon 05-16-2022 [facility] LT BLUE TOP TUBEon 2 [facility] LYTES (NA, K, CL) - URINE - RANDOMon 05-16-2022 Chloride (24H U) [Moles/Vol] 68 mmol/L [facility] Potassium (24H U) [Moles/Vol] 36.7 mmol/L [facility] Sodium (24H U) [Moles/Vol] 55 mmol/L [facility] The reference range has not been established for random urine specimens. The test result should be integrated into the clinical context for interpretation. [facility] MAGNESIUMon 05-16-2022 Interpretation and review of laboratory results Normal [facility] Magnesium [Mass/Vol] 1.7 mg/dL 1.6 - 2 .6 mg/dL [facility] NOVEL CORONAVIRUS PCROrdered By: Edson Candelario on 05-16-2022 SARS-CoV-2 (COVID-19) RNA ESTELITA+probe Ql (Unsp spec) Not detected NOT DETECTED [facility] Comment on above: [facility] [...] use authorization for use by authorized laboratories. [facility] No Panel Informationon 05-16 [facility] OSMOLALITY, URINEon 05-16-20 Interpretation and review of laboratory results Normal [facility] Osmolality (U) [Osmolality] 320 mosm/kg [facility] The reference range has not been established for random urine specimens. The test result should be integrated into the clinical context for interpretation. [facility] PROCALCITONINon 05-16-2022 Interpretation and review of laboratory results Normal [facility] Procalcitonin [Mass/Vol] 0.18 ng/mL <0.50 [facility] Comment on above: Procalcitonin [...] and trend procalcitonin in various clinical settings. [email or web address] Two common cutoffs associated with bacterial infections are as follows. Respiratory tract infections: >0.25 ng/mL Sepsis/septic shock: >0.5 ng/mL Procalcitonin should not be used alone as a diagnostic tool, however. All procalcitonin results should be interpreted in association with the patients clinical condition and all laboratory findings. [facility] PT,INR,PTTon 05-16-2022 aPTT Coag (PPP) [Time] 30.3 s [facility] INR Coag (Bld) [Relative time] 1.1 {INR} [facility] Interpretation and review of laboratory results Normal [facility] PT Coag (PPP) [Time] 14.1 s [facility] SARS-CoV-2 (COVID-19) RNA NA A+probe Ql (Unsp spec)Ordered By: Edson Candelario on 05-16-2022 Interpretation and review of laboratory results Normal [facility] TACROLIMUS LEVEL, TROUGH (VT E DRUG LEVEL)Ordered By: Mariama Nick on 05-16-2022 Interpretation and review of laboratory results Normal [facility] Tacrolimus (Bld) [Mass/Vol] 4.1 ng/mL Bone Marrow Transplant: 4.0-12.0, Therapeutic: 5.0-15.0 [facility] Method performed is a chemiluminescent microparticle immunoasssay on the [employer] i2000. The range is based on experience at [facility] and users should be aware that target concentrations vary widely depending on concomitant therapy, time post-transplant, and desired degree of immunosuppression. [facility] URINE PROTEIN/CREA RATIO, RA Smiley 05-16-2022 Creatinine (24H U) [Mass/Vol] 59.82 mg/dL [facility] Protein Unsp time (U) [Mass/Vol] 111 mg/dL [facility] Protein/Creatinine (U) [Mass ratio] 1.856 mg/g [facility] US for transplanted kidney l princess 05-16-2022 [...] appearing vascular flow in the transplant kidney. [facility] Radiology Study observation (narrative) [facility] US for transplanted kidney l imitedOrdered By: Rosendo Matute on 05-16-2022 [facility] Work Phone: CBC AND ELECTRONIC DIFFon Basophils (Bld) [#/Vol] 10*3/uL 0.00 - 0.09 K/uL [facility] Basophils/100 WBC (Bld) 0.2 % [facility] Differential cell count method Nom (Bld) Electronic Differential [facility] Eosinophils (Bld) [#/Vol] 10*3/uL 0.00 - 0.48 K/uL [facility] Eosinophils/100 WBC (Bld) 0.0 % [facility] Erythrocyte distribution width (RBC) [Ratio] 12.8 % 10.9 - 14.3 % [facility] Hematocrit (Bld) [Volume fraction] 46.0 % 39.6 - 48.8 % [facility] Hemoglobin (Bld) [Mass/Vol] 14.6 g/dL 13.4 - 16.8 g/dL [facility] Immature granulocytes (Bld) [#/Vol] 0.07 10*3/uL <=0.08 [facility] Immature granulocytes/100 WBC (Bld) 0.4 % [facility] Interpretation and review of laboratory results Abnormal [facility] Lymphocytes (Bld) [#/Vol] 1.49 10*3/uL 0.83 - 3.57 K/uL [facility] Lymphocytes/100 WBC (Bld) 9.4 % [facility] MCH (RBC) [Entitic mass] 28.2 pg 26.1 - 33.3 pg [facility] MCHC (RBC) [Mass/Vol] 31.7 g/dL Low 31.9 - 36.5 g/dL [facility] MCV (RBC) [Entitic vol] 89.0 fL 79.0 - 94.5 fL [facility] Monocytes (Bld) [#/Vol] 1.45 10*3/uL High 0.24 - 0.93 K/uL [facility] Monocytes/100 WBC (Bld) 9.2 % [facility] Neutrophils (Bld) [#/Vol] 12.77 10*3/uL High 1.57 - 6.19 K/uL [facility] Nucleated RBC/100 WBC (Bld) [Ratio] 0.0 % <=0.2 /100 WBC [facility] Platelet mean volume (Bld) [Entitic vol] 9.9 fL 8.7 - 12.3 fL [facility] Platelets (Bld) [#/Vol] 250 10*3/uL 146 - 337 K/uL [facility] RBC (Bld) [#/Vol] 5.17 10*6/uL [facility] Segmented neutrophils/100 WBC (Bld) 80.8 % [facility] WBC (Bld) [#/Vol] 15.81 10*3/uL High 3.73 - 10 .10 K/uL [facility] CBC AUTO DIFFon 05-15-2022 BASO # 0.0 103/ul Normal 0.0-0.1 [facility] Comment on above: Performed By: #### C BC #### [facility] [address] [place] [address] Dr. Dwight Waters Basophils/100 WBC (Bld) 0.3 % Normal 0.2-2.0 [facility] Comment on above: Performed By: #### C BC #### [facility] [address] [place] [address] Dr. Dwight Waters EO # 0.1 103/ul Normal 0.0-0.7 [facility] Comment on above: Performed By: #### C BC #### [facility] [address] [place] [address] Dr. Dwight Waters Eosinophils/100 WBC (Bld) 0.8 % Critically low 0.9-7.0 [facility] Comment on above: Performed By: #### C BC #### [facility] [address] [place] [address] Dr. Dwight Waters Erythrocyte distribution width (RBC) [Ratio] 12.7 % Normal 11.0-15.0 [facility] Comment on above: Performed By: #### C BC #### [facility] [address] [place] [address] Dr. Dwight Waters Hematocrit (Bld) [Volume fraction] 43.5 % Normal 42.0-54.0 [facility] Comment on above: Performed By: #### C BC #### [facility] [address] [place] [address] Dr. Dwight Waters Hemoglobin (Bld) [Mass/Vol] 14.4 g/dL Normal 14.0-18.0 [facility] Comment on above: Performed By: #### C BC #### [facility] [address] [place] [address] Dr. Dwight Waters IG # 0.02 10e3/ul Normal 0.00-0.03 [facility] Comment on above: Performed By: #### C BC #### [facility] [address] [place] [address] Dr. Dwight Waters IG % 0.2 % Normal 0.0-0.5 [facility] Comment on above: Performed By: #### C BC #### [facility] [address] [place] [address] Dr. Dwight Waters LYMPH # 1.5 103/ul Normal 1.2-3.8 [facility] Comment on above: Performed By: #### C BC #### [facility] [address] [place] [address] Dr. Dwight Waters Lymphocytes/100 WBC (Bld) 12.5 % Critically low 20.5-60.0 [facility] Comment on above: Performed By: #### C BC #### [facility] [address] [place] [address] Dr. Dwight Waters MANUAL DIFF REQ NO Normal [facility] Comment on above: Performed By: #### C BC #### [facility] [address] [address] [address] Dwight Waters MCH (RBC) [Entitic mass] 28.6 pg Normal 25.9-34.0 [facility] Comment on above: Performed By: #### C BC #### [facility] [address] [place] [address] Dr. Dwight Waters MCHC (RBC) [Mass/Vol] 33.1 g/dL Normal 29.9-35.2 [facility] Comment on above: Performed By: #### C BC #### [facility] [address] [place] [address] Dr. Dwight Waters MCV (RBC) [Entitic vol] 86.3 fL Normal 80.0-94.0 [facility] Comment on above: Performed By: #### C BC #### [facility] [address] [place] [address] Dr. Dwight Waters MONO # 1.0 103/ul Critically high 0.3-0.8 [facility] Comment on above: Performed By: #### C BC #### [facility] [address] [place] [address] Dr. Dwight Waters Monocytes/100 WBC (Bld) 8.2 % Normal 1.7-12.0 [facility] Comment on above: Performed By: #### C BC #### [facility] [address] [place] [address] Dr. Dwight Waters NEUT # 9.1 103/ul Critically high 1.4-6.5 [facility] Comment on above: Performed By: #### C BC #### [facility] [address] [place] [address] Dr. Dwight Waters Neutrophils/100 WBC (Bld) 78.0 % Critically high 43.0-75.0 [facility] Comment on above: Performed By: #### C BC #### [facility] [address] [place] [address] Dr. Dwight Waters Platelet mean volume (Bld) [Entitic vol] 9.8 fL Normal 9.5-13.5 [facility] Comment on above: Performed By: #### C BC #### [facility] [address] [place], [place] [address] Dr. Dwight Waters PLT 251 103/ul Normal 150-450 [facility] Comment on above: Performed By: #### C BC #### [facility] [address] [place], [place] [address] Dr. Dwight Waters RBC 5.04 106/ul Normal 4.70-6.10 [facility] Comment on above: Performed By: #### C BC #### [facility] [address] [place], [place] [address] Dr. Dwight Waters WBC 11.6 103/ul Critically high 4.0-11.0 [facility] Comment on above: Performed By: #### C BC #### [facility] [address] [address] [address] Dwight Waters CHEM 6 (LYTES, BUN CREA)on 0 05-15-2022 Anion gap [Moles/Vol] 12 mmol/L 7 - 17 mmol/L [facility] Chloride [Moles/Vol] 105 mmol/L 98 - 10 8 mmol/L [facility] CO2 [Moles/Vol] 26 mmol[facility]L 21 - 31 [facility] Creatinine [Mass/Vol] 2.85 mg/dL High 0.70 - 1.30 mg/dL [facility] GFR/1.73 sq M.predicted CKD-EPI (S/P/Bld) [Vol rate/Area] 26 Low >=60 mL/min/1.73m 2 [facility] Comment on above: Reported eGFR is bas ed on the CKD-EPI 2020 equation using creatinine, age, and sex. Potassium [Moles/Vol] 4.6 mmol/L 3.5 - 5.0 mmol/L [facility] Sodium [Moles/Vol] 138 mmol/L 135 - 145 mmol/L [facility] Urea nitrogen [Mass/Vol] 32 mg/dL High 7 - 25 mg/dL [facility] Urea nitrogen/Creatinine [Mass ratio] 11 mg/mg [facility] CT ABD/PELVIS WO CONon 05-15 CT [...] transplanted kidney with moderate right-sided hydronephrosis. Atrophic [place] kidneys with moderate right-sided hydronephrosis. Multiple nonobstructive [...] transplanted kidney with moderate right-sided hydronephrosis. Atrophic [place] kidneys with moderate right-sided hydronephrosis. Multiple nonobstructive right renal calculi measuring up to 8 mm. FOLLOW-UP: Follow-up as clinically indicated. Electronically authenticated by: LYNDSAY JEAN Date: 2022-05-15 05:04 Normal [facility] Covid-19 PCR (CVDTB)on 04-30 SARS-CoV-2 (COVID-19) RNA ESTELITA+probe Ql (Unsp spec) Not detected Normal NOT DETECTED [facility] Comment on above: Result Comment: When diagnostic [...] for this test is supported by the [place] of [employer] and Human Service's declaration that [...] used). Performed By: #### U RTPCR #### [facility] [address] [place] [address] Dr. Dwight Waters GLUCOSEon 05-15-2022 Glucose [Mass/Vol] 141 mg/dL High 70 - 99 mg/dL [facility] GOLD TOP TUBEon 05-15-2022 [facility] HEPATIC FUNCTION PANELon Albumin [Mass/Vol] 4.3 g/dL 3.5 - 5.0 g/dL [facility] ALP [Catalytic activity/Vol] 85 U/L 32 - 126 U/L [facility] ALT [Catalytic activity/Vol] 13 U/L 10 - 52 U/L [facility] AST [Catalytic activity/Vol] 15 U/L 10 - 39 U/L [facility] Bilirubin [Mass/Vol] 0.8 mg/dL <1.5 [facility] Bilirubin.direct [Mass/Vol] 0.2 mg/dL <0.3 [facility] Interpretation and review of laboratory results Normal [facility] Protein [Mass/Vol] 7.3 g/dL 6.4 - 8.3 g/dL [facility] LIPASEon 05-15-2022 Lipase [Catalytic activity/Vol] 8 U/L Low 11 - 82 U/L [facility] No Panel Informationon 05-15 Interpretation and review of laboratory results Abnormal [facility] PROF 14(COMP METB)on 022 Albumin [Mass/Vol] 3.8 g/dL Normal 3.4-5.0 [facility] Comment on above: Performed By: #### U RTPCR #### [facility] [address] [address] [address] Dwight Waters Albumin/Globulin [Mass ratio] 1.1 {ratio} Normal [facility] Comment on above: Performed By: #### U RTPCR #### [facility] [address] [place] [address] Dr. Dwight Waters ALP [Catalytic activity/Vol] 92 U/L Normal 46-116 [facility] Comment on above: Performed By: #### U RTPCR #### [facility] [address] [place] [address] Dr. Dwight Waters ALT [Catalytic activity/Vol] 25 U/L Normal 16-63 [facility] Comment on above: Performed By: #### U RTPCR #### [facility] [address] [place] [address] Dr. Dwight Waters Anion gap [Moles/Vol] 14.6 mmol/L Normal [facility] Comment on above: Performed By: #### U RTPCR #### [facility] [address] [place] [address] Dr. Dwight Waters AST [Catalytic activity/Vol] 17 U/L Normal 15-37 [facility] Comment on above: Performed By: #### U RTPCR #### [facility] [address] [place] [address] Dr. Dwight Waters Bilirubin [Mass/Vol] 0.6 mg/dL Normal 0.2-1.0 [facility] Comment on above: Performed By: #### U RTPCR #### [facility] [address] [place] [address] Dr. Dwight Waters Calcium [Mass/Vol] 9.9 mg/dL Normal 8.5-10.1 [facility] Comment on above: Performed By: #### U RTPCR #### [facility] [address] [place] [address] Dr. Dwight Waters Chloride [Moles/Vol] 106 mmol/L Normal 98-107 [facility] Comment on above: Performed By: #### U RTPCR #### [facility] [address] [address] [address] Dwight Waters CO2 [Moles/Vol] 24.2 mmol/L Normal 21.0-32.0 [facility] Comment on above: Performed By: #### U RTPCR #### [facility] [address] [address] [address] Dwight Waters Creatinine [Mass/Vol] 1.58 mg/dL Critically high 0.70-1.30 [facility] Comment on above: Performed By: #### U RTPCR #### [facility] [address] [address] [address] Dwight Waters EGFR-AF LIBYAN 56 mL/min/1.73m2 Critically low >=60 [facility] Comment on above: Performed By: #### U RTPCR #### [facility] [address] [place] [address] Dr. Dwight Waters EGFR-NON AF LIBYAN 46 mL/min/1.73m2 Critically low >=60 [facility] Comment on above: Performed By: #### U RTPCR #### [facility] [address] [address] [address] Dwight Waters Globulin (S) [Mass/Vol] 3.5 g/dL Normal [facility] Comment on above: Performed By: #### U RTPCR #### [facility] [address] [place] [address] Dr. Dwight Waters Glucose [Mass/Vol] 162 mg/dL Critically high 74-106 [facility] Comment on above: Performed By: #### U RTPCR #### [facility] [address] [address] [address] Dwight Waters Potassium [Moles/Vol] 3.8 mmol/L Normal 3.5-5.1 [facility] Comment on above: Performed By: #### U RTPCR #### [facility] [address] [address] [address] Dwight Waters Protein [Mass/Vol] 7.3 g/dL Normal 6.4-8.2 [facility] Comment on above: Performed By: #### U RTPCR #### [facility] [address] [address] [address] Dwight Waters Sodium [Moles/Vol] 141 mmol/L Normal 136-145 [facility] Comment on above: Performed By: #### U RTPCR #### [facility] [address] [address] [address] Dwight Waters Urea nitrogen [Mass/Vol] 22.0 mg/dL Critically high 7.0-18.0 [facility] Comment on above: Performed By: #### U RTPCR #### [facility] [address] [address] [address] Dwight Waters Urea nitrogen/Creatinine [Mass ratio] 13.9 mg/mg Normal [facility] Comment on above: Performed By: #### U RTPCR #### [facility] [address] [address] [address] Dwight Waters Portable XR Chest Viewson [...] chest. IMPRESSION IMPRESSION: No acute cardiopulmonary disease [facility] Radiology Study observation (narrative) [facility] Portable XR Chest ViewsOrder ed By: Vladislav Omer on 05-15-2022 [facility] URINE DIPSTICK; REFLEX MICRO SCOPY; REFLEX CULTURE PERFORMABLEon 05-15-2022 Appearance (U) Clear Clear U [facility] Color (U) Yellow Yellow [facility] Glucose Test strip (U) [Mass/Vol] 100 mg/dL Abnormal Negative [facility] Interpretation and review of laboratory results Abnormal [facility] Ketones (U) [Mass/Vol] Negative Negative [facility] Leukocyte esterase Test strip Ql (U) Large Abnormal Negative [facility] Nitrite Ql (U) Negative Negative [facility] pH (U) 6.0 [pH] 5.0 - 7.0 [facility] Protein (U) [Mass/Vol] 100 mg/dL Abnormal Negative [facility] RBC (U) [#/Vol] Large Abnormal Negative [facility] Specific gravity (U) [Rel density] 1.010 [facility] Urobilinogen (U) [Mass/Vol] 0.2 E.U./dL 0.2 E.U/dL, 1.0 E.U/dL [facility] URINE MICROSCOPIC WITH REFLE X TO CULTUREOrdered By: Rey Bro on 05-15-2022 Bacteria LM Ql (Urine sed) ABSENT ABSENT [facility] Epithelial cells.squamous LM Ql (Urine sed) ABSENT 1/hpf = 1+, 2-5/hpf = 2+, 0/hpf = 0+, ABSENT [facility] Interpretation and review of laboratory results Abnormal [facility] RBC LM.HPF (Urine sed) [#/Area] /[HPF] Abnormal 0 - 2 /HPF [facility] WBC LM.HPF (Urine sed) [#/Area] 10-20 Abnormal 0 - 5 /HPF [facility] CT ABD/PELVIS WO CONon 05-12 CT ABD/PELVIS WO CON Begin Addendum #[address] Lund 3:25 PM EST 05/11/2022. Begin Addendum #2 IMPRESSION below should also contain the followin. 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 The [place] kidneys are progressively atrophic bilaterally compared to [...] of 06/14/2020 are no longer present. The [place] distal right ureter is decompressed beyond this [...] with surgical history for renal graft and [place] right urinary drainage, as a discrete ureteroneocystostomy is not identified, and the graft may be draining via a ureteroureterostomy. Urology consultation recommended. 3. The [place]uke[place] kidneys are bilaterally atrophic, with right renal sinus calcifications consistent with nonobstructing right [place]cosukee renal calculi up to 6 mm. Normal [facility] CBC AUTO DIFFon 05-11-2022 BASO # 0.1 103/ul Normal 0.0-0.1 [facility] Comment on above: Performed By: #### U RTPCR #### [facility] [address] [place] [address] Dr. Dwight Waters Basophils/100 WBC (Bld) 0.8 % Normal 0.2-2.0 [facility] Comment on above: Performed By: #### U RTPCR #### [facility] [address] [place] [address] Dr. Dwight Waters EO # 0.2 103/ul Normal 0.0-0.7 [facility] Comment on above: Performed By: #### U RTPCR #### [facility] [address] [address] [address] Dwight Waters Eosinophils/100 WBC (Bld) 2.5 % Normal 0.9-7.0 [facility] Comment on above: Performed By: #### U RTPCR #### [facility] [address] [place] [address] Dr. Dwight Waters Erythrocyte distribution width (RBC) [Ratio] 12.5 % Normal 11.0-15.0 [facility] Comment on above: Performed By: #### U RTPCR #### [facility] [address] [place] [address] Dr. Dwight Waters Hematocrit (Bld) [Volume fraction] 48.3 % Normal 42.0-54.0 [facility] Comment on above: Performed By: #### U RTPCR #### [facility] [address] [place] [address] Dr. Dwight Waters Hemoglobin (Bld) [Mass/Vol] 15.3 g/dL Normal 14.0-18.0 [facility] Comment on above: Performed By: #### U RTPCR #### [facility] [address] [place] [address] Dr. Dwight Waters IG # 0.01 10e3/ul Normal 0.00-0.03 [facility] Comment on above: Performed By: #### U RTPCR #### [facility] [address] [place] [address] Dr. Dwight Waters IG % 0.2 % Normal 0.0-0.5 [facility] Comment on above: Performed By: #### U RTPCR #### [facility] [address] [place] [address] Dr. Dwight Waters LYMPH # 1.9 103/ul Normal 1.2-3.8 [facility] Comment on above: Performed By: #### U RTPCR #### [facility] [address] [place] [address] Dr. Dwight Waters Lymphocytes/100 WBC (Bld) 29.8 % Normal 20.5-60.0 [facility] Comment on above: Performed By: #### U RTPCR #### [facility] [address] [place] [address] Dr. Dwight Waters MANUAL DIFF REQ NO Normal [facility] Comment on above: Performed By: #### U RTPCR #### [facility] [address] [place] [address] Dr. Dwight Waters MCH (RBC) [Entitic mass] 28.2 pg Normal 25.9-34.0 [facility] Comment on above: Performed By: #### U RTPCR #### [facility] [address] [address] [address] Dwight Waters MCHC (RBC) [Mass/Vol] 31.7 g/dL Normal 29.9-35.2 [facility] Comment on above: Performed By: #### U RTPCR #### [facility] [address] [place] [address] Dr. Dwight Waters MCV (RBC) [Entitic vol] 89.1 fL Normal 80.0-94.0 [facility] Comment on above: Performed By: #### U RTPCR #### [facility] [address] [place] [address] Dr. Dwight Waters MONO # 0.6 103/ul Normal 0.3-0.8 [facility] Comment on above: Performed By: #### U RTPCR #### [facility] [address] [place] [address] Dr. Dwight Waters Monocytes/100 WBC (Bld) 9.0 % Normal 1.7-12.0 [facility] Comment on above: Performed By: #### U RTPCR #### [facility] [address] [place] [address] Dr. Dwight Waters NEUT # 3.6 103/ul Normal 1.4-6.5 [facility] Comment on above: Performed By: #### U RTPCR #### [facility] [address] [place] [address] Dr. Dwight aWters Neutrophils/100 WBC (Bld) 57.7 % Normal 43.0-75.0 [facility] Comment on above: Performed By: #### U RTPCR #### [facility] [address] [place] [address] Dr. Dwight Waters Platelet mean volume (Bld) [Entitic vol] 9.9 fL Normal 9.5-13.5 [facility] Comment on above: Performed By: #### U RTPCR #### [facility] [address] [place] [address] Dr. Dwight Waters PLT 249 103/ul Normal 150-450 [facility] Comment on above: Performed By: #### U RTPCR #### [facility] [address] [place] [address] Dr. Dwight Waters RBC 5.42 106/ul Normal 4.70-6.10 [facility] Comment on above: Performed By: #### U RTPCR #### [facility] [address] [place] [address] Dr. Dwight Waters WBC 6.3 103/ul Normal 4.0-11.0 [facility] Comment on above: Performed By: #### U RTPCR #### [facility] [address] [place] [address] Dr. Dwight Waters ER URINE PROFILEon 2 Bilirubin Ql (U) Unable to perform te sting due to color interference. Abnormal NEGATIVE [facility] Comment on above: Performed By: #### U RTPCR #### [facility] [address] [place] [address] Dr. Dwight Waters Clarity (U) TURBID Abnormal CLEAR [facility] Comment on above: Performed By: #### U RTPCR #### [facility] [address] [place] [address] Dr. Dwight Waters Color (U) RED Abnormal YELLOW [facility] Comment on above: Performed By: #### U RTPCR #### [facility] [address] [place] [address] Dr. Dwight Waters ERUBERTHA A micrscopic examina tion will be performed if indicated. Normal [facility] Comment on above: Performed By: #### U RTPCR #### [facility] [address] [place] [address] Dr. Dwight Waters Glucose Ql (U) Unable to perform te sting due to color interference. Abnormal NEGATIVE [facility] Comment on above: Performed By: #### U RTPCR #### [facility] [address] [place] [address] Dr. Dwight Waters Hemoglobin Ql (U) Unable to perform te sting due to color interference. Abnormal NEGATIVE [facility] Comment on above: Performed By: #### U RTPCR #### [facility] [address] [place] [address] Dr. Dwight Waters Ketones Ql (U) Unable to perform te sting due to color interference. Abnormal NEGATIVE [facility] Comment on above: Performed By: #### U RTPCR #### [facility] [address] [place] [address] Dr. Dwight Waters LEUKOCYTES Unable to perform te sting due to color interference. Abnormal NEGATIVE [facility] Comment on above: Performed By: #### U RTPCR #### [facility] [address] [place] [address] Dr. Dwight Waters Nitrite Ql (U) Unable to perform te sting due to color interference. Abnormal NEGATIVE [facility] Comment on above: Performed By: #### U RTPCR #### [facility] [address] [place] [address] Dr. Dwight Waters pH (U) 6.5 [pH] Normal 5-9 [facility] Comment on above: Performed By: #### U RTPCR #### [facility] [address] [place] [address] Dr. Dwight Waters SPEC GRAVITY 1.020 Normal 1.005-<=1.02 5 [facility] Comment on above: Performed By: #### U RTPCR #### [facility] [address] [place] [address] Dr. Dwight Waters UA PROTEIN Unable to perform te sting due to color interference. Normal NEGATIVE/ TRACE [facility] Comment on above: Performed By: #### U RTPCR #### [facility] [address] [place] [address] Dr. Dwight Waters UR MICRO IND INDICATED Normal [facility] Comment on above: Performed By: #### U RTPCR #### [facility] [address] [place] [address] Dr. Dwight Waters UROBILINOGEN Unable to perform te sting due to color interference. Normal 0.2 - 1.0 [facility] Comment on above: Performed By: #### U RTPCR #### [facility] [address] [place] [address] Dr. Dwight Waters PROF 14(COMP METB)on 022 Albumin [Mass/Vol] 3.8 g/dL Normal 3.4-5.0 [facility] Comment on above: Performed By: #### C MP #### [facility] [address] [place] [address] Dr. Dwight Waters Albumin/Globulin [Mass ratio] 1.1 {ratio} Normal [facility] Comment on above: Performed By: #### C MP #### [facility] [address] [place] [address] Dr. Dwight Waters ALP [Catalytic activity/Vol] 106 U/L Normal 46-116 [facility] Comment on above: Performed By: #### C MP #### [facility] [address] [place] [address] Dr. Dwight Waters ALT [Catalytic activity/Vol] 30 U/L Normal 16-63 [facility] Comment on above: Performed By: #### C MP #### [facility] [address] [place] [address] Dr. Dwight Waters Anion gap [Moles/Vol] 11.7 mmol/L Normal [facility] Comment on above: Performed By: #### C MP #### [facility] [address] [place] [address] Dr. Dwight Waters AST [Catalytic activity/Vol] 16 U/L Normal 15-37 [facility] Comment on above: Performed By: #### C MP #### [facility] [address] [place] [address] Dr. Dwight Waters Bilirubin [Mass/Vol] 0.6 mg/dL Normal 0.2-1.0 [facility] Comment on above: Performed By: #### C MP #### [facility] [address] [place] [address] Dr. Dwight Waters Calcium [Mass/Vol] 9.1 mg/dL Normal 8.5-10.1 [facility] Comment on above: Performed By: #### C MP #### [facility] [address] [place] [address] Dr. Dwight Waters CO2 [Moles/Vol] 27.4 mmol/L Normal 21.0-32.0 [facility] Comment on above: Performed By: #### C MP #### [facility] [address] [place] [address] Dr. Dwight Waters Creatinine [Mass/Vol] 1.18 mg/dL Normal 0.70-1.30 [facility] Comment on above: Performed By: #### C MP #### [facility] [address] [place] [address] Dr. Dwight Waters EGFR-AF LIBYAN >60 Normal >=60 [facility] Comment on above: Performed By: #### C MP #### [facility] [address] [place] [address] Dr. Dwight Waters EGFR-NON AF LIBYAN >60 Normal >=60 [facility] Comment on above: Performed By: #### C MP #### [facility] [address] [place] [address] Dr. Dwight Waters Globulin (S) [Mass/Vol] 3.6 g/dL Normal [facility] Comment on above: Performed By: #### C MP #### [facility] [address] [place] [address] Dr. Dwight Waters Glucose [Mass/Vol] 192 mg/dL Critically high 74-106 [facility] Comment on above: Performed By: #### C MP #### [facility] [address] [place] [address] Dr. Dwight Waters Potassium [Moles/Vol] 4.1 mmol/L Normal 3.5-5.1 [facility] Comment on above: Performed By: #### C MP #### [facility] [address] [place] [address] Dr. Dwight Waters Protein [Mass/Vol] 7.4 g/dL Normal 6.4-8.2 [facility] Comment on above: Performed By: #### C MP #### [facility] [address] [place] [address] Dr. Dwight Waters Sodium [Moles/Vol] 142 mmol/L Normal 136-145 [facility] Comment on above: Performed By: #### C MP #### [facility] [address] [place] [address] Dr. Dwight Waters Urea nitrogen [Mass/Vol] 17.0 mg/dL Normal 7.0-18.0 [facility] Comment on above: Performed By: #### C MP #### [facility] [address] [place] [address] Dr. Dwight Waters Urea nitrogen/Creatinine [Mass ratio] 14.4 mg/mg Normal [facility] Comment on above: Performed By: #### C MP #### [facility] [address] [place] [address] Dr. Dwight Waters URINE MICROSCOPIC ONLYon BACTERIA NONE SEEN Normal NONE SEEN [facility] Comment on above: Performed By: #### U RTPCR #### [facility] [address] [place] [address] Dr. Dwight Waters Bacteria identified Cx Nom (U) NOT INDICATED Normal [facility] Comment on above: Performed By: #### U RTPCR #### [facility] [address] [place] [address] Dr. Dwight Waters CAST NONE SEEN Normal NONE SEEN [facility] Comment on above: Performed By: #### U RTPCR #### [facility] [address] [place] [address] Dr. Dwight Waters Crystals LM Nom (Urine sed) NONE SEEN Normal NONE SEEN [facility] Comment on above: Performed By: #### U RTPCR #### [facility] [address] [place] [address] Dr. Dwight Waters Epithelial cells LM Ql (Urine sed) RARE Normal NONE SEEN /RARE [facility] Comment on above: Performed By: #### U RTPCR #### [facility] [address] [place] [address] Dr. Dwight Waters MUCOUS NONE SEEN Normal NONE SEEN [facility] Comment on above: Performed By: #### U RTPCR #### [facility] [address] [place] [address] Dr. Dwight Waters RBC (U) [#/Vol] /uL Abnormal 0-2 [facility] Comment on above: Performed By: #### U RTPCR #### [facility] [address] [address] [address] Dwight Waters WBC NONE SEEN Normal NONE SEEN [facility] Comment on above: Performed By: #### U RTPCR #### [facility] [id number] Dwight Ortiz (Potassium)on 01-06-2020 Potassium [Moles/Vol] 4.4 mmol/L Normal 3.7-5.3 [facility] Comment on above: Performed By: #### K #### [facility] [address] [place] [id number] Erecting Engineer: Kehinde Woodward MD Potassiumon 01-06-2020 Potassium [Moles/Vol] 4.4 mmol/L 3.7 - 5.3 mmol/L [facility] Work Phone: Hemoglobin and Hematocrit, B loodon 10-24-2019 Hematocrit (Bld) [Volume fraction] 23.6 % Low 40.7 - 50.3 % [place] Hemoglobin (Bld) [Mass/Vol] 7.3 g/dL Low 13 - 17 g/dL [place] Interpretation and review of laboratory results Abnormal [place] Hgb/Hcton 10-24-2019 Hematocrit (Bld) [Volume fraction] 23.6 % Low 40.7-50.3 [facility] Comment on above: Performed By: #### H H #### [facility] [address] [place] [id number] Erecting Engineer: Kehinde Woodward MD Hemoglobin (Bld) [Mass/Vol] 7.3 g/dL Low 13.0-17.0 [facility] Comment on above: Performed By: #### H H #### [facility] [address] [place] [address] Erecting Engineer: Kehinde Woodward MD Hemoglobinon 08-27-2019 Hemoglobin (Bld) [Mass/Vol] 7.5 g/dL Low 13.0-17.0 [facility] Comment on above: Performed By: #### H GB #### [facility] [address] [place], [place] [address] Erecting Engineer: Kehinde Woodward MD Hemoglobin (Bld) [Mass/Vol] 7.5 g/dL Low 13 - 17 g/dL [place] Interpretation and review of laboratory results Abnormal [place] Hemoglobinon 08-08-2019 Hemoglobin (Bld) [Mass/Vol] 8.3 g/dL Low 13.0-17.0 [facility] Comment on above: Performed By: #### H GB #### [facility] [address] [place], [place] [address] Erecting Engineer: Kehinde Woodward MD Hemoglobin (Bld) [Mass/Vol] 8.3 g/dL Low 13 - 17 g/dL [place] Interpretation and review of laboratory results Abnormal [place] Hemoglobinon 08-04-2019 Hemoglobin (Bld) [Mass/Vol] 8.0 g/dL Low 13.0-17.0 [facility] Comment on above: Performed By: #### H GB #### [facility] [address] [place], [place] [address] Erecting Engineer: Kehinde Woodward MD Hemoglobin A1Con 08-03-2019 HbA1c (Bld) [Mass fraction] % Low 4.8-5.9 [facility] Comment on above: Result Comment: The ADA and AACC recommend providing the estimated average glucose result to permit better patient understanding of their HBA1c result. Performed By: #### G LYHGB #### [facility] [address] [place], [place] [address] Erecting Engineer: Kehinde Woodward MD Glucose [Mass/Vol] mg/dL mg/dL [place], [place] Comment on above: The ADA and AACC rec ommend providing the estimated average glucose result to permit better patient understanding of their HBA1c result. HbA1c (Bld) [Mass fraction] % Low 4.8 - 5.9 % [place], [place] Interpretation and review of laboratory results Abnormal [place] Hemoglobinon 08-01-2019 Hemoglobin (Bld) [Mass/Vol] 8.1 g/dL Low 13.0-17.0 [facility] Comment on above: Performed By: #### H GB #### [facility] [address] [place] [id number] Erecting Engineer: Kehinde Woodward MD Hemoglobin (Bld) [Mass/Vol] 8.1 g/dL Low 13 - 17 g/dL [place] Interpretation and review of laboratory results Abnormal [place] Hgb/Hcton 06-10-2019 Hematocrit (Bld) [Volume fraction] 24.3 % Low 40.7-50.3 [facility] Comment on above: Performed By: #### H H #### [facility] [address] [place], [place] [id number] Erecting Engineer: Kehinde Woodward MD Hemoglobin (Bld) [Mass/Vol] 7.4 g/dL Low 13.0-17.0 [facility] Comment on above: Performed By: #### H H #### [facility] [address] [place], [id number] Erecting Engineer: Kehinde Woodward MD Hemoglobinon 06-01-2019 Hemoglobin (Bld) [Mass/Vol] 7.2 g/dL Low 13.0-17.0 [facility] Comment on above: Performed By: #### H GB #### [facility] [address] [place] [id number] Erecting Engineer: Kehinde Woodward MD K (Potassium)on 01-14-2019 Potassium [Moles/Vol] 3.6 mmol/L Low 3.7-5.3 [facility] Comment on above: Performed By: #### K #### [facility] [address] [place], [place] [id number] Erecting Engineer: Kehinde Woodward MD Otheron 10-19-2018 IMPRESSION: 1. [...] characteristics determined by Toxicology Laboratory at [facility]. It has not been cleared or [...] Amitriptyline(50), Amphetamine(250), Atenolol(500), Barbiturates(1000), Benzoylecgonine(50), Buprenorphine(50), Bupropion(25), Caffeine(35317), Chlordiazepoxide(50), Chlorpheniramine(100), Chlorpromazine(50), Citalopram(100), Clonazepam(200), Cocaine(25), Codeine(200), [...] method NONE DETECTED Invalid Interpretation Shira LOUIS, [facility] TO[facility] Drugs identified Screen Nom (U) For Medical Purposes Only, Non-forensic, screen results are presumptive. No confirmatory testing will follow. Invalid Interpretation Code MISSY, OS Comment on above: This Liquid Chromato graphy Mass Spectrometry (LC/MS/MS) test was developed and its performance characteristics determined by Toxicology Laboratory at [facility]. It has not been cleared or [...] Amitriptyline(50), Amphetamine(250), Atenolol(500), Barbiturates(200), Benzoylecgonine(50), Buprenorphine(500), Bupropion(25), Caffeine(55922), Cannabinoids(THC)(50), Chlordiazepoxide(50), Chlorpheniramine(100), Chlorpromazine(50), Citalopram(100), Clonazepam(200), Cocaine(25), [...] Time Vital Sign Value Performing Clinician Facility 02-28-2025 09:07-0400 Body height 170.2 cm Tony Hernandez MD Work Phone: [facility] 02-28-2025 09:07-0400 Body mass index (BMI) [Ratio] 32.26 kg/m2 Tony Hernandez MD Work Phone: [facility] 02-28-2025 09:07-0400 Body weight 93.44 kg Tony Hernandez MD Work Phone: [facility] 02-28-2025 09:07-0400 Diastolic blood pressure 90 mm[Hg] Tony Hernandez MD Work Phone: [facility] 02-28-2025 09:07-0400 Heart rate 86 /min Tony Hernandez MD Work Phone: [facility] 02-28-2025 09:07-0400 Respiratory rate 18 /min Tony Hernandez MD Work Phone: [facility] 02-28-2025 09:07-0400 SaO2% (BldA) [Mass fraction] 95 % Tony Hernandez MD Work Phone: [facility] 02-28-2025 09:07-0400 Systolic blood pressure 138 mm[Hg] Tony Hernandez MD Work Phone: [facility] 01-03-2025 11:01-0500 Diastolic blood pressure 88 mm[Hg] Steph Orzech [facility] 01-03-2025 11:01-0500 Heart rate 67 /min Steph Orzech [facility] 01-03-2025 11:01-0500 Respiratory rate 16 /min Steph Orzech [facility] 01-03-2025 11:01-0500 Systolic blood pressure 124 mm[Hg] Steph Orzech [facility] 12-26-2024 09:32-0500 Diastolic blood pressure 71 mm[Hg] Zuly Bruno Work Phone: [facility] 12-26-2024 09:32-0500 Heart rate 62 /min Zuly Torresholz Work Phone: [facility] 12-26-2024 09:32-0500 Respiratory rate 16 /min Zulytray Torresholz Work Phone: [facility] 12-26-2024 09:32-0500 SaO2% (BldA) [Mass fraction] 95 % Zuly Brianholz Work Phone: [facility] 12-26-2024 09:32-0500 Systolic blood pressure 105 mm[Hg] Zuly Lexiehholz Work Phone: [facility] 12-26-2024 06:58-0500 Body height 170.18 cm Zuly Torresholz Work Phone: [facility] 12-26-2024 06:58-0500 Body weight 89.35 kg Zuly Bruno Work Phone: [facility] 12-15-2024 09:15-0500 Body height 170.18 cm [facility] 12-15-2024 09:15-0500 Body mass index (BMI) [Ratio] 30.8 kg/m2 [facility] 12-15-2024 09:15-0500 Body weight 89.35 kg [facility] 12-15-2024 09:15-0500 Diastolic blood pressure 72 mm[Hg] [facility] 12-15-2024 09:15-0500 Heart rate 82 /min [facility] 12-15-2024 09:15-0500 Systolic blood pressure 126 mm[Hg] [facility] 11-22-2024 09:35-0500 Diastolic blood pressure 95 mm[Hg] Steph Orzech [facility] 11-22-2024 09:35-0500 Heart rate 68 /min Steph Orzech [facility] 11-22-2024 09:35-0500 Systolic blood pressure 135 mm[Hg] Steph Almodovar [facility] 11-07-2024 14:29-0500 Body height 170.2 cm Zuly Marissaz [employer] Work Phone: [facility] 11-07-2024 14:29-0500 Body mass index (BMI) [Ratio] 31.83 kg/m2 Zuly Marissaz [employer]IC [employer]PARER Work Phone: [facility] 11-07-2024 14:29-0500 Body temperature 98.2 [degF] Zuly Marissaz [employer]IC PREPARER Work Phone: [facility] 11-07-2024 14:29-0500 Body weight 92.17 kg Zuly Marissaz [employer]IC PREPARER Work Phone: [facility] 11-07-2024 14:29-0500 Diastolic blood pressure 86 mm[Hg] Zuly Marissaz [employer]IC PREPARER Work Phone: [facility] 11-07-2024 14:29-0500 Heart rate 63 /min Zuly Lexiehholz [employer]IC PREPARER Work Phone: [facility] 11-07-2024 14:29-0500 Respiratory rate 18 /min Zuly Lexiehholz [employer]IC PREPARER Work Phone: [facility] 11-07-2024 14:29-0500 SaO2% (BldA) [Mass fraction] 96 % Zuly Marissaz [employer]IC PREPARER Work Phone: [facility] 11-07-2024 14:29-0500 Systolic blood pressure 128 mm[Hg] Zuly Lexiehholz [employer]IC PREPARER Work Phone: [facility] 09-08-2024 13:40-0400 Blood Pressure Location Clementina Galea [facility] 09-08-2024 13:40-0400 Diastolic blood pressure 90 mm[Hg] Clementina Galea [facility] 09-08-2024 13:40-0400 Heart rate 66 /min Clementina Galea [facility] 09-08-2024 13:40-0400 Systolic blood pressure 144 mm[Hg] Clementina Galea [facility] 08-23-2024 08:45-0400 Body height 170.2 cm Zulytray Bruno [employer]IC PREPARER Work Phone: [facility] 08-23-2024 08:45-0400 Body mass index (BMI) [Ratio] 30.26 kg/m2 Zuly Marissaz [employer]IC PREPARER Work Phone: [facility] 08-23-2024 08:45-0400 Body temperature 98.01 [degF] Zuly Bruno [employer]IC PREPARER Work Phone: [facility] 08-23-2024 08:45-0400 Body weight 87.64 kg Zuly Marissaz [employer]IC PREPARER Work Phone: [facility] 08-23-2024 08:45-0400 Diastolic blood pressure 80 mm[Hg] Zuly Marissaz [employer]IC PREPARER Work Phone: [facility] 08-23-2024 08:45-0400 Heart rate 61 /min Zuly Marissaz [employer]IC PREPARER Work Phone: [facility] 08-23-2024 08:45-0400 Respiratory rate 18 /min Zuly Marissaz [employer]IC PREPARER Work Phone: [facility] 08-23-2024 08:45-0400 SaO2% (BldA) [Mass fraction] 96 % Zuly Marissaz [employer]IC PREPARER Work Phone: [facility] 08-23-2024 08:45-0400 Systolic blood pressure 132 mm[Hg] Zuly Kiana [employer]IC PREPARER Work Phone: [facility] 06-17-2024 08:37-0400 Body mass index (BMI) [Ratio] 29.43 kg/m2 Rebeca Gutierrez SAP SPECIALIST-[employer]IST Work Phone: [facility] 06-17-2024 08:37-0400 Body temperature 97.39 [degF] Rebeca Gutierrez SAP SPECIALIST-[employer]IA SPECIALIST Work Phone: [facility] 06-17-2024 08:37-0400 Body weight 85.23 kg Rebeca Gutierrez SAP SPECIALIST-[employer]IA SPECIALIST Work Phone: [facility] 06-17-2024 08:37-0400 Diastolic blood pressure 75 mm[Hg] Rebeca Gutierrez SAP SPECIALIST-[employer]IA SPECIALIST Work Phone: [facility] 06-17-2024 08:37-0400 Heart rate 53 /min Rebeca Gutierrez SAP SPECIALIST-[employer] SPECIALIST Work Phone: [facility] 06-17-2024 08:37-0400 Systolic blood pressure 143 mm[Hg] Rebeca Gutierrez SAP SPECIALIST-[employer]IST Work Phone: [facility] 06-17-2024 08:36-0400 Body mass index (BMI) [Ratio] 29.43 kg/m2 Daisha Sobotka DO Work Phone: [facility] 06-17-2024 08:36-0400 Body temperature 97.39 [degF] Daisha Sobotka DO Work Phone: [facility] 06-17-2024 08:36-0400 Body weight 85.23 kg Daisha Sobotka DO Work Phone: [facility] 06-17-2024 08:36-0400 Diastolic blood pressure 75 mm[Hg] Daisha Sobotka DO Work Phone: [facility] 06-17-2024 08:36-0400 Heart rate 53 /min Daisha Sobotka DO Work Phone: [facility] 06-17-2024 08:36-0400 Systolic blood pressure 143 mm[Hg] Daisha Max DO Work Phone: [facility] 02-26-2024 09:07-0400 Diastolic blood pressure 56 mm[Hg] Candie Almaguer MD Work Phone: [facility] 02-26-2024 09:07-0400 Heart rate 65 /min Candie Almaguer MD Work Phone: [facility] 02-26-2024 09:07-0400 Systolic blood pressure 113 mm[Hg] Candie Almaguer MD Work Phone: [facility] 02-26-2024 09:06-0400 Body height 170.2 cm Candie Almaguer MD Work Phone: [facility] 02-26-2024 09:06-0400 Body mass index (BMI) [Ratio] 28.9 kg/m2 Candie Almaguer MD Work Phone: [facility] 02-26-2024 09:06-0400 Body weight 83.69 kg Candie Almaguer MD Work Phone: [facility] 02-26-2024 09:06-0400 Respiratory rate 20 /min Candie Almaguer MD Work Phone: [facility] 02-26-2024 09:06-0400 SaO2% (BldA) [Mass fraction] 97 % Candie Almaguer MD Work Phone: [facility] 01-23-2024 15:04-0500 Body temperature 97.9 [degF] Reese Sage MD Work Phone: [facility] 01-23-2024 15:04-0500 Diastolic blood pressure 67 mm[Hg] Reese Sage MD Work Phone: [facility] 01-23-2024 15:04-0500 Heart rate 51 /min Reese Sage MD Work Phone: [facility] 01-23-2024 15:04-0500 Respiratory rate 16 /min Reese Sage MD Work Phone: [facility] 01-23-2024 15:04-0500 SaO2% (BldA) [Mass fraction] 94 % Reese Sage MD Work Phone: [facility] 01-23-2024 15:04-0500 Systolic blood pressure 151 mm[Hg] Reese Sage MD Work Phone: [facility] 01-23-2024 10:46-0500 Body mass index (BMI) [Ratio] 30.94 kg/m2 Reese Sage MD Work Phone: [facility] 01-23-2024 10:46-0500 Body weight 89.6 kg Reese Sage MD Work Phone: [facility] 01-18-2024 11:21-0500 Body height 170.2 cm Reese Sage MD Work Phone: [facility] 01-06-2024 09:04-0500 Body height 170.2 cm Zuly Bruno [employer]IC PREPARER Work Phone: [facility] 01-06-2024 09:04-0500 Body mass index (BMI) [Ratio] 32.42 kg/m2 Zuly Bruno [employer]IC PREPARER Work Phone: [facility] 01-06-2024 09:04-0500 Body temperature 97.81 [degF] Zuly Bruno [employer]IC PREPARER Work Phone: [facility] 01-06-2024 09:04-0500 Body weight 93.89 kg Zuly Bruno [employer]IC PREPARER Work Phone: [facility] 01-06-2024 09:04-0500 Diastolic blood pressure 70 mm[Hg] Zuly Torresholz [employer]IC PREPARER Work Phone: [facility] 01-06-2024 09:04-0500 Heart rate 95 /min Zuly Torresholz [employer]IC PREPARER Work Phone: [facility] 01-06-2024 09:04-0500 Respiratory rate 17 /min Zulytray Torresholz [employer]USTIC PREPARER Work Phone: [facility] 01-06-2024 09:04-0500 SaO2% (BldA) [Mass fraction] 99 % Zuly Brianholz [employer]USTIC PREPARER Work Phone: [facility] 01-06-2024 09:04-0500 Systolic blood pressure 138 mm[Hg] Zuly Lexiehholz [employer]IC PREPARER Work Phone: [facility] 09-11-2023 10:31-0400 Body temperature 97.81 [degF] Steve Tammy MBBS Work Phone: [facility] 09-11-2023 10:31-0400 Diastolic blood pressure 66 mm[Hg] Steve Tammy MBBS Work Phone: [facility] 09-11-2023 10:31-0400 Heart rate 70 /min Steve Tammy MBBS Work Phone: [facility] 09-11-2023 10:31-0400 Respiratory rate 20 /min Steve Tammy MBBS Work Phone: [facility] 09-11-2023 10:31-0400 SaO2% (BldA) [Mass fraction] 91 % Steve Tammy MBBS Work Phone: [facility] 09-11-2023 10:31-0400 Systolic blood pressure 129 mm[Hg] Steve Tammy MBBS Work Phone: [facility] 09-10-2023 15:50-0400 Body mass index (BMI) [Ratio] 31.99 kg/m2 Steve Tammy MBBS Work Phone: [facility] 09-10-2023 15:50-0400 Body weight 92.67 kg Steve Tammy MBBS Work Phone: [facility] 09-02-2023 07:32-0400 Body height 170.2 cm Steve Tammy MBBS Work Phone: [facility] 08-28-2023 13:33-0400 Body height 170.2 cm Steve Tammy MBBS Work Phone: [facility] 08-28-2023 13:33-0400 Body mass index (BMI) [Ratio] 32.12 kg/m2 Steve Tammy MBBS Work Phone: [facility] 08-28-2023 13:33-0400 Body temperature 97.3 [degF] Steve Tammy MBBS Work Phone: [facility] 08-28-2023 13:33-0400 Body weight 93.03 kg Steve Tammy MBBS Work Phone: [facility] 08-28-2023 13:33-0400 Diastolic blood pressure 41 mm[Hg] Steve Tammy MBBS Work Phone: [facility] 08-28-2023 13:33-0400 Heart rate 116 /min Steve Tammy MBBS Work Phone: [facility] 08-28-2023 13:33-0400 Systolic blood pressure 106 mm[Hg] Steve Tammy MBBS Work Phone: [facility] 06-12-2023 14:50-0400 Body mass index (BMI) [Ratio] 33.8 kg/m2 Rebeca Gutierrez APRN-[employer] MEDIA SPECIALIST Work Phone: [facility] 06-12-2023 14:50-0400 Body temperature 97.3 [degF] Rebeca Gutierrez SAP SPECIALIST-[employer] MEDIA SPECIALIST Work Phone: [facility] 06-12-2023 14:50-0400 Body weight 97.89 kg Rebeca Gutierrez SAP SPECIALIST-[employer] MEDIA SPECIALIST Work Phone: [facility] 06-12-2023 14:50-0400 Diastolic blood pressure 77 mm[Hg] Rebeca Gutierrez SAP SPECIALIST-[employer] MEDIA SPECIALIST Work Phone: [facility] 06-12-2023 14:50-0400 Heart rate 76 /min Rebeca Gutierrez SAP SPECIALIST-[employer] MEDIA SPECIALIST Work Phone: [facility] 06-12-2023 14:50-0400 Systolic blood pressure 146 mm[Hg] Rebeca Gutierrez SAP SPECIALIST-[employer] MEDIA SPECIALIST Work Phone: [facility] 01-16-2023 08:57-0500 Body height 170.2 cm [facility] Work Phone: [facility] 01-16-2023 08:57-0500 Body mass index (BMI) [Ratio] 33.66 kg/m2 [facility] Work Phone: [facility] 01-16-2023 08:57-0500 Body temperature 97.3 [degF] [facility] Work Phone: [facility] 01-16-2023 08:57-0500 Body weight 97.48 kg [facility] Work Phone: [facility] 01-16-2023 08:57-0500 Diastolic blood pressure 75 mm[Hg] [facility] Work Phone: [facility] 01-16-2023 08:57-0500 Heart rate 76 /min [facility] Work Phone: [facility] 01-16-2023 08:57-0500 Systolic blood pressure 142 mm[Hg] [facility] Work Phone: [facility] 09-10-2022 09:38-0400 Body height 170.2 cm Ryan Yepez MD Work Phone: [facility] 09-10-2022 09:38-0400 Body mass index (BMI) [Ratio] 33.67 kg/m2 Ryan Yepez MD Work Phone: [facility] 09-10-2022 09:38-0400 Body weight 97.52 kg Ryan Yepez MD Work Phone: [facility] 09-10-2022 09:38-0400 Diastolic blood pressure 83 mm[Hg] Ryan Yepez MD Work Phone: [facility] 09-10-2022 09:38-0400 Heart rate 64 /min Ryan Yepez MD Work Phone: [facility] 09-10-2022 09:38-0400 SaO2% (BldA) [Mass fraction] 96 % Ryan Yepez MD Work Phone: [facility] 09-10-2022 09:38-0400 Systolic blood pressure 129 mm[Hg] Ryan Yepez MD Work Phone: [facility] 07-07-2022 13:48-0400 Diastolic blood pressure 76 mm[Hg] Ryan Yepez MD Work Phone: [facility] 07-07-2022 13:48-0400 Heart rate 82 /min Ryan Yepez MD Work Phone: [facility] 07-07-2022 13:48-0400 SaO2% (BldA) [Mass fraction] 96 % Ryan Yepez MD Work Phone: 0(837)176-762027 [place] [address] 07-07-2022 13:48-0400 Systolic blood pressure 141 mm[Hg] Ryan Yepez MD Work Phone: [facility] 06-27-2022 13:32-0400 Body height 170.2 cm Ryan Yepez MD Work Phone: [facility] 06-27-2022 13:32-0400 Body mass index (BMI) [Ratio] 34.24 kg/m2 Ryan Yepez MD Work Phone: 2(841)320-664978 [address] 06-27-2022 13:32-0400 Body temperature 98.6 [degF] Ryan Yepez MD Work Phone: 8(663)667-445600 [place] [address] 06-27-2022 13:32-0400 Body weight 99.16 kg Ryan Yepez MD Work Phone: 3(999)[phone] [address] 06-27-2022 13:32-0400 Diastolic blood pressure 78 mm[Hg] Ryan Yepez MD Work Phone: 4(134)249-894278 [address] 06-27-2022 13:32-0400 Heart rate 77 /min Ryan Yepez MD Work Phone: 8(517)[phone] [address] 06-27-2022 13:32-0400 SaO2% (BldA) [Mass fraction] 95 % Ryan Yepez MD Work Phone: [facility] 06-27-2022 13:32-0400 Systolic blood pressure 121 mm[Hg] Ryan Yepez MD Work Phone: [facility] 06-27-2022 10:52-0400 Body height 170.2 cm Rena Brewster RN [facility] 06-27-2022 10:52-0400 Body mass index (BMI) [Ratio] 34.46 kg/m2 Rena Brewster RN [facility] 06-27-2022 10:52-0400 Body temperature 98.2 [degF] Rena Brewster RN [facility] 06-27-2022 10:52-0400 Body weight 99.79 kg Rena Brewster RN [facility] 06-27-2022 10:52-0400 Diastolic blood pressure 73 mm[Hg] Rena Brewster RN [facility] 06-27-2022 10:52-0400 Heart rate 78 /min Rena Brewster RN [facility] 06-27-2022 10:52-0400 Respiratory rate 20 /min Rena Brewster RN [facility] 06-27-2022 10:52-0400 SaO2% (BldA) [Mass fraction] 97 % Rena Brewster RN [facility] 06-27-2022 10:52-0400 Systolic blood pressure 135 mm[Hg] Rean Brewster RN [facility] 06-12-2022 14:23-0400 Body mass index (BMI) [Ratio] 34.59 kg/m2 Steve Tammy MBBS Work Phone: [facility] 06-12-2022 14:23-0400 Body temperature 97 [degF] Steve Tammy MBBS Work Phone: [facility] 06-12-2022 14:23-0400 Body weight 100.2 kg Steve Tammy MBBS Work Phone: [facility] 06-12-2022 14:23-0400 Diastolic blood pressure 66 mm[Hg] Tseve Tammy MBBS Work Phone: [facility] 06-12-2022 14:23-0400 Heart rate 63 /min Steve Tammy MBBS Work Phone: [facility] 06-12-2022 14:23-0400 Systolic blood pressure 133 mm[Hg] Steve Tammy MBBS Work Phone: [facility] 05-20-2022 15:21-0400 Body temperature 97.9 [degF] Gian Villatoro MD Work Phone: [facility] 05-20-2022 15:21-0400 Diastolic blood pressure 64 mm[Hg] Gian Villatoro MD Work Phone: [facility] 05-20-2022 15:21-0400 Heart rate 55 /min Gian Villatoro MD Work Phone: 0(988)[phone] [address] 05-20-2022 15:21-0400 Respiratory rate 15 /min Gian Villatoro MD Work Phone: 6(191)[phone] [place] [address] 05-20-2022 15:21-0400 SaO2% (BldA) [Mass fraction] 95 % Gian Villatoro MD Work Phone: 7(856)[phone] [address] 05-20-2022 15:21-0400 Systolic blood pressure 145 mm[Hg] Gian Villatoro MD Work Phone: 7(523)[phone] [place] [address] 05-19-2022 12:15-0400 Body mass index (BMI) [Ratio] 35.87 kg/m2 Gian Villatoro MD Work Phone: 0(855)[phone] [place] [address] 05-19-2022 12:15-0400 Body weight 103.92 kg Gian Villatoro MD Work Phone: 4(323)[phone] [place] [address] Comment on above: standing scale 05-16-2022 16:19-0400 Body height 170.2 cm Gian Villatoro MD Work Phone: [facility] 10-19-2018 08:44-0500 BMI (Body Mass Index) 26.58 kg/m2 [facility] Work Phone: 10-19-2018 08:44-0500 BP Diastolic 76 mm[Hg] [facility] Work Phone: 10-19-2018 08:44-0500 BP Systolic 144 mm[Hg] [facility] Work Phone: 10-19-2018 08:44-0500 Height 172.7 cm [facility] Work Phone: 10-19-2018 08:44-0500 Pulse (Heart Rate) 92 /min [facility] Work Phone: 10-19-2018 08:44-0500 Pulse Oximetry 99 % [facility] Work Phone: 10-19-2018 08:44-0500 Respiratory Rate 16 /min [facility] Work Phone: 10-19-2018 08:44-0500 Weight 79.29 kg [facility] Work Phone: 10-12-2018 09:50-0500 BMI (Body Mass Index) 27.24 kg/m2 [facility] Work Phone: 10-12-2018 09:50-0500 Body Temperature 98.6 [degF] [facility] Work Phone: 10-12-2018 09:50-0500 BP Diastolic 80 mm[Hg] [facility] Work Phone: 10-12-2018 09:50-0500 BP Systolic 157 mm[Hg] [facility] Work Phone: 10-12-2018 09:50-0500 Height 169.5 cm [facility] Work Phone: 10-12-2018 09:50-0500 Pulse (Heart Rate) 94 /min [facility] Work Phone: 10-12-2018 09:50-0500 Weight 78.29 kg Alfredito kassie [facility] Work Phone: Encounters Encounter Date Encounter Type Care Provider Facility Start: 03-23-2025 ambulatory Clementina Montesinos Facility : [place] Start: 03-09-2025 ambulatory Steph X Orjosue Facilit y:DOTTIE Schroeder Start: 02-28-2025 End: 02-28-2025 Bamboo flowsheet Tony Hernandez MD Work Phone: [facility] Start: 02-28-2025 End: 02-28-2025 Bamboo flowsheet Tony Hernandez MD Work Phone: [facility] Start: 02-28-2025 End: 02-28-2025 Office outpatient new 45 minutes Tony Hernandez MD Work Phone: [facility] Comment on above: Other osteoporosis w ithout current pathological fracture; Liver transplant status; Organ transplant Start: 02-28-2025 End: 02-28-2025 ambulatory TONY HERNANDEZ Not Available Start: 02-24-2025 End: 02-24-2025 Refill Zuly Aichholz [employer]IC PREPARER Work Phone: [facility] Comment on above: Elevated blood uric acid level (Primary Dx) Start: 02-08-2025 End: 02-08-2025 ambulatory ZULY AICHHOLZ Not Available Start: 02-01-2025 End: 02-01-2025 Refill Zuly Aichholz [employer]USTIC PREPARER Work Phone: [facility] Comment on above: Primary hypertension (CMS/HCC) Start: 01-31-2025 End: 01-31-2025 Clinisync Result Encounter Generic External Data Provider [facility] External Department Unsolicited Start: 01-31-2025 End: 01-31-2025 Clinisync Result Encounter Generic External Data Provider [facility] External Department Unsolicited Start: 01-23-2025 ambulatory Steph Orleonardo[facility]ible [facility] Facility: [facility] Start: 01-13-2025 End: 01-13-2025 Orders Only Zuly Bruno [employer]USTIC PREPARER Work Phone: [facility] Comment on above: Other osteoporosis w ithout current pathological fracture (CMS/HCC) (Primary Dx); Liver transplant status (CMS/HCC); Organ transplant Start: 01-05-2025 End: 01-06-2025 Refill Zuly Bruno [employer]USTIC PREPARER Work Phone: [facility] Comment on above: Other polyneuropathy Start: 01-03-2025 End: 01-03-2025 ambulatory [employer] Facility:[facility]OTT[facility] Schroeder Start: 01-03-2025 End: 01-03-2025 Patient encounter procedure [facility]on[facility] Start: 12-28-2024 End: 12-28-2024 Clinisync Result Encounter Generic External Data Provider [facility] External Department Unsolicited Start: 12-28-2024 End: 12-28-2024 Clinisync Result Encounter Generic External Data Provider [facility] External Department Unsolicited Start: 12-26-2024 Non-patient / Non-visit Zuly olmedo Work Phone: [facility] Work Phone: Start: 12-26-2024 End: 12-26-2024 Admission to same day surgery center Zuly Bruno Work Phone: [facility] Work Phone: Start: 12-26-2024 End: 12-26-2024 ambulatory Zuly Bruno Work Phone: [facility] Work Phone: Start: 12-23-2024 End: 12-23-2024 Refill Zuly Bruno CAUSTIC PREPARER Work Phone: [facility] Start: 12-15-2024 End: 12-15-2024 ambulatory [facility] Work Phone: Start: 12-15-2024 End: 12-15-2024 Patient encounter procedure [facility] Work Phone: Start: 11-22-2024 End: 11-22-2024 ambulatory Steph X Orzech Facility:[facility] Start: 11-22-2024 End: 11-22-2024 Patient encounter procedure Steph X Orzech [facility] Start: 11-21-2024 End: 11-21-2024 Clinisync Result Encounter Generic External Data Provider [facility] External [facility] Unsolicited Start: 11-21-2024 End: 11-21-2024 Clinisync Result Encounter Generic External Data Provider [facility] External [facility] Unsolicited Start: 11-07-2024 End: 11-07-2024 Office outpatient visit 25 minutes Zuly Bruno [employer]USTIC PREPARER Work Phone: [facility] Comment on above: Primary hypertension (CMS/HCC) (Primary Dx); Immunodeficiency, unspecified (CMS/HCC); Liver transplant status (CMS/HCC); Portal hypertension (CMS/HCC); Obesity (BMI 30-39.9); Other osteoporosis without current pathological fracture (CMS/HCC); Kidney stones Start: 11-07-2024 End: 11-07-2024 ambulatory ZULY BRUNO Not Available Start: 11-07-2024 End: 11-07-2024 Clinisync Result Encounter Generic External Data Provider [facility] External Department Unsolicited Start: 11-07-2024 End: 11-07-2024 Clinisync Result Encounter Generic External Data Provider [facility] External Department Unsolicited Start: 10-31-2024 End: 10-31-2024 ambulatory Evan Bolton RPh,PharmD [facility] Start: 10-31-2024 End: 10-31-2024 Patient encounter procedure Evan Colla RPh,PharmD [facility] [place] Start: 10-29-2024 End: 10-29-2024 Refill Zuly Bruno NP Work Phone: [facility] Comment on above: Decreased urine stre am [...] Refill Momo Verdugo MD Work Phone: [facility] Comment on above: Decreased urine stre am [...] Department Unsolicited Start: 09-08-2024 End: 09-08-2024 ambulatory Clementina Montesinos Facility:[facility] Start: 09-08-2024 End: 09-08-2024 Patient encounter procedure Clementina Montesinos [facility] Start: 09-07-2024 ambulatory ZULY BRUNO Facility: [facility] Start: 09-05-2024 End: 09-05-2024 ambulatory Angel Fete RPh,PharmD [facility] Start: 09-05-2024 End: 09-05-2024 Patient encounter procedure Angel Carpio RPh,PharmD [facility] Start: 08-29-2024 End: 08-29-2024 Clinisync Result Encounter Generic External Data Provider [facility] External Department Unsolicited Start: 08-29-2024 End: 08-29-2024 Clinisync Result Encounter Generic External Data Provider [facility] External Department Unsolicited Start: 08-24-2024 ambulatory [facility] Facility: [place] Start: 08-23-2024 End: 08-23-2024 Bamboo flowsheet Zuly Bruno CAUSTIC PREPARER Work Phone: [facility] Start: 08-23-2024 End: 08-23-2024 Bamboo flowsheet Zuly Bruno CAUSTIC PREPARER Work Phone: [facility] Start: 08-23-2024 End: 08-23-2024 Office outpatient visit 25 minutes Zuly Bruno [employer]IC PREPARER Work Phone: [facility] Comment on [...] urine stream Start: 08-23-2024 End: 08-23-2024 ambulatory ZULYTray BRUNO Not Available Start: 08-15-2024 End: 08-15-2024 Clinisync Result Encounter Generic External Data Provider [facility] External Department Unsolicited Start: 08-15-2024 End: 08-15-2024 Clinisync Result Encounter Generic External Data Provider [facility] External Department Unsolicited Start: 08-11-2024 End: 08-12-2024 Refill Zuly Bruno [employer]IC [employer]PARER Work Phone: [facility] Comment on above: Primary hypertension (CMS/HCC) Start: 08-02-2024 End: 08-02-2024 Clinisync Result Encounter Generic External Data Provider [facility] External Department Unsolicited Start: 08-02-2024 End: 08-02-2024 Clinisync Result Encounter Generic External Data Provider [facility] External Department Unsolicited Start: 06-23-2024 End: 06-23-2024 ambulatory Meka Munoz [facility] [place] Start: 06-23-2024 End: 06-23-2024 Patient encounter procedure Meka Munoz [facility] [place] Start: 06-17-2024 End: 06-17-2024 Office outpatient visit 25 minutes Daisha Max DO Work Phone: [facility] Comment on above: Liver lesion (Primar y Dx); Liver transplant recipient; High risk medication use; Therapeutic drug monitoring; 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) Start: 06-17-2024 ambulatory ZULY KIANA Facility: [facility] Start: 05-26-2024 End: 05-26-2024 ambulatory Evan Bolton RPh,PharmD Pharmacy Outpatient [facility] Start: 05-26-2024 End: 05-26-2024 Patient encounter procedure Evan Bolton RPh,PharmD Pharmacy Outpatient RX Yanci Start: 05-13-2024 End: 05-13-2024 ambulatory [facility] Start: 04-18-2024 End: 04-18-2024 ambulatory ZULY [...] Pharmacy Outpatient RX [facility] Start: 03-01-2024 ambulatory HAKEEM ALAMO Facility :[facility] Start: 02-26-2024 End: 02-26-2024 Office outpatient new 30 minutes Candie Almaguer MD Work Phone: [facility] Comment on above: Heart failure, diast olic, acute (Primary Dx) Start: 02-11-2024 Patient encounter procedure Generic Provider [facility] Start: 01-16-2024 End: 01-23-2024 Evaluation and management of inpatient Reese Sage MD Work Phone: [id number] Comment on above: Pleural effusion on right Start: 01-16-2024 End: 01-23-2024 Patient encounter status Reese Sage MD Work Phone: [facility] Work Phone: Start: 01-12-2024 End: 01-12-2024 ambulatory Angel Fete RPh,PharmD Pharmacy Outpatient RX [facility] Start: 01-12-2024 End: 01-12-2024 Patient encounter procedure Angel Fete RPh,PharmD Pharmacy Outpatient [facility] [place] Start: 01-08-2024 Clinisync Result Encounter Generic External Data Provider [facility] Unsolicited Start: 01-08-2024 Clinisync Result Encounter Generic External Data Provider [facility] External Department Unsolicited Start: 01-06-2024 End: 01-06-2024 Office outpatient visit 25 minutes Zuly Bruno NP Work Phone: [facility] Comment on above: Bilateral lower extr emity edema (Primary Dx); 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); Atherosclerosis 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); Obesity (BMI 30-39.9); DARLENE (obstructive sleep apnea); Tremor; Immunocompromised ([facility]); Primary hypertension ([facility]); Shortness of breath Start: 01-01-2024 Clinisync Result Encounter Generic External Data Provider [facility] External Department Unsolicited Start: 01-01-2024 Clinisync Result Encounter Generic External Data Provider [facility] External Department Unsolicited Start: 10-06-2023 ambulatory Angel Madsencolt RP,PharmD Pharmacy Outpatient RX [place] Start: 10-06-2023 Patient encounter procedure Angel Carpio LIVIA,PharmD Pharmacy Outpatient RX [facility] Start: 08-28-2023 End: 09-11-2023 Evaluation and management of inpatient Steve LEIGH Work Phone: [id number] Start: 08-28-2023 End: 08-28-2023 Office outpatient visit 25 minutes Steve MORENOBS Work Phone: [facility] Comment on above: Immunosuppressed sta tus (Primary Dx); Kidney replaced by transplant; Aftercare following organ transplant; High risk medication use; Other general symptoms and signs; Abnormal blood chemistry; Hypertension secondary to other renal disorders Start: 08-19-2023 ambulatory Meka rueda [facility] Pharmacy Outpatient RX [place] Start: 08-19-2023 Patient encounter procedure Meka Munoz [facility] Pharmacy Outpatient RX [facility] Start: 06-12-2023 End: 06-12-2023 Office outpatient visit 25 minutes Steve MORENOBS Work Phone: [facility] Comment on above: 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) Start: 06-10-2023 ambulatory Maren Dipika RP,PharmD Pharmacy Outpatient [facility] [place] Start: 06-10-2023 Patient encounter procedure Maren Hayeney RP,PharmD Pharmacy Outpatient [facility] [place] Start: 04-28-2023 End: 04-29-[address] DOCTOR EVANS Facility:[facility] Start: 03-12-2023 ambulatory Angel Madsene RPh,PharmD Pharmacy Outpatient RX [place] Start: 03-12-2023 Patient encounter procedure Angel Fete RPh,PharmD Pharmacy Outpatient [facility] [place] Start: 03-10-2023 ambulatory Angel Fete RPh,PharmD Pharmacy Outpatient [facility] [place] Start: 03-10-2023 Patient encounter procedure Angel Fete RPh,PharmD Pharmacy Outpatient [facility] [place] Start: 03-02-2023 End: 03-03-[address] DOCTOR EVANS Facility:[facility] Start: 01-16-2023 End: 01-16-2023 Office outpatient visit 25 minutes Daisha Max DO Work Phone: [facility] [...] MD Work Phone: [facility] Comment on above: BPH with obstruction /lower urinary tract symptoms (Primary Dx); Encounter for screening for malignant neoplasm of prostate Start: 08-28-2022 End: 08-29-2022 ambulatory ROB BRUNO Facility:[facility] Start: 08-14-2022 End: 08-15-[address] DOCTOR EVANS Facility:[facility] Start: 07-07-2022 End: 07-07-2022 Patient encounter procedure Ryan Yepez MD Work Phone: [facility] Comment on above: Other hydronephrosis (Primary Dx); [...] MD Work Phone: [facility] Comment on above: Other hydronephrosis (Primary Dx) [...] [place] Facility: Start: 03-14-2022 ambulatory Comfort Rivera [facility] Work Phone: Pharmacy Outpatient RX [facility] Start: 03-14-2022 Patient encounter procedure Comfort Rivrea [facility] Work Phone: Pharmacy Outpatient RX [facility] Start: 06-14-2021 End: 06-14-2021 ambulatory Comfort Rivera [facility] Work Phone: [facility] Start: 06-14-2021 Patient encounter procedure Comfort Rivera [facility] Work Phone: [facility] Start: 01-20-2020 End: 01-27-2020 Patient encounter procedure PEPE CASE Facility:[facility] Start: 01-06-2020 End: 01-07-2020 Patient encounter procedure [facility] Start: 01-06-2020 End: 01-06-2020 Subsequent hospital visit by physician [facility] Start: 10-24-2019 End: 10-25-2019 Patient encounter procedure TANA Colón [facility] Start: 10-24-2019 End: 10-24-2019 Subsequent hospital visit by physician [facility] Start: 08-27-2019 End: 08-28-2019 Patient encounter procedure [facility] Start: 08-27-2019 End: 08-27-2019 Subsequent hospital visit by physician [facility] Start: 08-08-2019 End: 08-09-2019 Patient encounter procedure [facility] Start: 08-08-2019 End: 08-08-2019 Subsequent hospital visit by physician [facility] Start: 08-03-2019 End: 08-04-2019 Patient encounter procedure [facility] Start: 08-03-2019 End: 08-03-2019 Subsequent hospital visit by physician [facility] Start: 08-01-2019 End: 08-02-2019 Patient encounter procedure [facility] Start: 08-01-2019 End: 08-01-2019 Subsequent hospital visit by physician [facility] Start: 06-10-2019 End: 06-11-2019 Patient encounter procedure [facility] Start: 06-01-2019 End: 06-02-2019 Patient encounter procedure [facility] Start: 01-14-2019 End: 01-15-2019 Patient encounter procedure [facility] Start: 11-17-2018 End: 11-17-2018 Patient encounter procedure Fidelina Pantojaman [facility] Pre Transplant Office Comment on above: Social Work Follow-u p Start: 10-19-2018 End: 10-19-2018 Patient encounter [facility] Pre Transplant Office [...] 10-13-2018 Patient encounter procedure Autumn [facility] Pre [facility]plant Office Comment on above: Reschedule Outside Medical Allan rds Request Start: 10-12-2018 End: 10-12-2018 Patient encounter procedure Sophie Fallonandrei [facility] Pre [facility]plant Office Comment on above: Alcoholic cirrhosis, unspecified whether ascites present (Primary Dx); Pre-transplant evaluation for liver transplant Start: 10-12-2018 End: 10-12-2018 Office outpatient new 60 minutes Alfredito Restrepo Work Phone: [facility]plant Office Comment on above: Alcoholic cirrhosis, unspecified whether ascites present; ESRD (end stage renal disease) on dialysis; Pre-transplant evaluation for liver transplant Start: 10-06-2018 End: 10-06-2018 Patient encounter procedure Yovani Orr Work Phone: Department of Radiology Comment on above: Canceled (Insurance Company Redirected Pt) Start: 10-05-2018 Patient encounter status Comfort Rivera [facility] Work Phone: [facility] Procedures Date Procedure Procedure Detail Performing Clinician Start: 02-08-2025 End: 02-08-2025 H/O: liver recipient History of liver transplant Zuly Bruno [employer]ER Work Phone: Start: 02-08-2025 History of renal transplant History of kidney transplant Zuly Bruno [employer]IC PREPARER Work Phone: Start: 01-31-2025 ALL CBC WITH AUTO DIFF Generic External Data Provider Start: 01-02-2025 History of renal transplant Steph X Orz ech Start: 12-28-2024 ALL CBC WITH AUTO DIFF Generic External Data Provider Start: 12-26-2024 End: 12-26-2024 Esophagogastroduodenoscopy Zuly Bruno Work Phone: Start: 12-26-2024 Colonoscopy Generic Provider Start: 12-26-2024 Colonoscopy Steph Almodovar Start: 11-22-2024 History of renal transplant Steph X Orz ech Start: 11-21-2024 ALL CBC WITH AUTO [...] Work Phone: Start: 01-23-2024 Hepatic function panel Aerlis Mera MD Work Phone: Start: 01-23-2024 Oscillating positive expiratory pressure (flutter) physiotherapy Arelis Mera MD Work Phone: Start: 01-22-2024 CARDIAC RHYTHM Other Other Start: 01-22-2024 US Unspecified body region Mini West Work Phone: Start: 01-22-2024 Antibody screen Reese Sage MD Work Phone: Start: 01-22-2024 Assay of magnesium Timtohy Joseph MD Work Phone: Start: 01-22-2024 Drug [...] Phone: Start: 01-20-2024 ITRACONAZOLE LEVEL Fidelina Alarcon [facility] Work Phone: [...] Iadna nos quantification each organism Fidelina Alarcon [facility] Work Phone: [...] AURIS SCREEN BY PCR Carol Ann Velasco [facility] SAP SPECIALIST-TELEVISION NEWS VIDEO EDITOR Work Phone: Start: 01-08-2024 ALL CBC WITH [...] Start: 09-07-2023 Hepatic function panel Evan Kelly M D Work Phone: Start: 09-06-2023 Assay of magnesium Evan Kelly MD Work Phone: Start: 09-06-2023 Hepatic function panel Evan Kelly M D Work Phone: Start: 09-06-2023 Oscillating positive expiratory [...] nos amplified probe tq each organism Evan Tray Cindy WHIPPLE Work Phone: Start: 08-31-2023 End: [...] DARYL AURIS SCREEN BY PCR Carol Ann Rollins ll SAP SPECIALIST-TELEVISION NEWS VIDEO EDITOR Work Phone: Start: 08-28-2023 CBC AND ELECTRONIC [...] on above: Performed By: #### CMP #### [facility] [address] [place] [address] Dr. Dwight Waters Start: 07-07-2022 Rmvl nfros [...] liver recipient S/P liver transplant Comfort Rivera RPH Work Phone: Start: 04-08-2020 H/O: liver recipient Liver transplant recipient Comfort Rivera [facility] Work Phone: Start: 01-06-2020 Potassium serum plasma/whole blood ROB KASMANI Start: 01-06-2020 Potassium serum plasma/whole blood Kimbe allison Albertt Work Phone: Start: 11-30-2019 Transplant of kidney [facility] Start: 11-30-2019 Transplantation of liver [facility] Start: 10-24-2019 HEMOGLOBIN AND HEMATOCRIT, BLOOD ROB K ASMANI Start: 10-24-2019 Blood count hemoglobin Tana S Johar Work Phone: Start: 09-20-2019 Colonoscopy Generic Provider Start: 08-27-2019 Blood count hemoglobin Rena Rist [...] HOSPITAL Work Phone: Start: 06-10-2019 HEMOGLOBIN AND HEMATOCRIT, BLOOD ROB K ASMANI Start: 06-01-2019 Blood count hemoglobin ROB KASMANI Start: 03-22-2019 Lipid 1996 panel - Serum or Plasma [facility] recipient Liver trans plant status Zuly Bruno [employer]IC PREPARER Work Phone: H/O: liver recipient S/P liver transplant (CMS/HCC) Zuly Bruno [employer]IC PREPARER Work Phone: H/O: liver recipient Liver trans plant status (CMS/HCC) Zuly Bruno [employer] PREPARER Work Phone: H/O: liver recipient Liver trans plant status Tony Hernandez MD Work Phone: History of renal transplant Kidn ey replaced by transplant Steve S Tammy LEIGH Work Phone: History of renal transplant Dece ased-donor kidney transplant recipient Ryan Yepez MD Work Phone: History of renal transplant Kidn ey replaced by transplant Daisha A Sobotka DO Work Phone: History of renal transplant Kidn ey replaced by transplant Steve LEIGH Work Phone: History of renal transplant Kidn ey replaced by transplant Steve S Tammy MBBS Work Phone: History of renal transplant Dece ased-donor kidney transplant recipient Steve Munoz MBBS Work Phone: History of renal transplant Paulino ey replaced by transplant Rebecasa Rod Gutierrez SAP SPECIALIST-[employer] MEDIA SPECIALIST Work Phone: Plan of Treatment Date Care Activity Detail Author Start: 12-26-2034 Screening for malignant neoplasm of colon [facility] Start: 09-20-2029 Screening for malignant neoplasm of colon [facility] Start: 10-24-2025 Potassium [Moles/volume] in Serum or Plasma POTASSIUM [facility] Start: 08-15-2025 Potassium [Moles/volume] in Serum or Plasma POTASSIUM [facility] Start: 07-04-2025 Potassium [Moles/volume] in Serum or Plasma [facility]OTAS[facility]UM [facility] Start: 06-20-2025 Potassium [Moles/volume] in Serum or Plasma POTASSIUM [facility] Start: 06-16-2025 End: 06-16-2025 Patient encounter procedure [facility] Start: 06-13-2025 Potassium [Moles/volume] in Serum or Plasma [facility]OTAS[facility]UM [facility] Start: 05-23-2025 Potassium [Moles/volume] in Serum or Plasma POTASSIUM [facility] Start: 05-11-2025 End: 05-11-2025 Patient encounter procedure 05/11/2025 10:00 AM EDT [facility] [address] [place] [address] Zuly Bruno NP [address] [place] [address] [facility] Start: 03-28-2025 Potassium [Moles/volume] in Serum or Plasma [facility]OTAS[facility]UM [facility] Start: 03-21-2025 Potassium [Moles/volume] in Serum or Plasma [facility]OTASSIUM [facility] Start: 03-21-2025 End: 03-21-2025 Patient encounter procedure 03/21/2025 9:40 AM EDT Office Visit [facility] [address] [place] [phone] Tony Hernandez MD [address] [place] [phone] [facility] Start: 02-28-2025 End: 02-28-2026 25-hydroxyvitamin D3 [Mass/volume] in Serum or Plasma Vitamin D 25 hydroxy Lab Routine Other osteoporosis without current pathological fracture ([facility]/HCC) Expected: 02/28/2025 (Approximate), Expires: 02/28/2026 [facility] Comment on above: Expected: 02/28/2025 (Approximate), Expi res: 02/28/2026 Start: 02-28-2025 End: 02-28-2026 Calcium, urine, 24 hour Calcium, urine, 24 hour Lab Routine Other osteoporosis without current pathological fracture ([facility]/HCC) Expected: 02/28/2025 (Approximate), Expires: 02/28/2026 [facility] Comment on above: Expected: 02/28/2025 (Approximate), Expi res: 02/28/2026 Start: 02-28-2025 End: 02-28-2026 Creatinine, urine, 24 hour Creatinine, urine, 24 hour Lab Routine Other osteoporosis without current pathological fracture ([facility]/HCC) Expected: 02/28/2025 (Approximate), Expires: 02/28/2026 [facility] Comment on above: Expected: 02/28/2025 (Approximate), Expi res: 02/28/2026 Start: 02-28-2025 End: 02-28-2026 Magnesium [Mass/volume] in Serum or Plasma Magnesium Lab Routine Other osteoporosis without current pathological fracture ([facility]/HCC) Expected: 02/28/2025 (Approximate), Expires: 02/28/2026 [facility] Work Phone: Comment on above: Expected: 02/28/2025 (Approximate), Expi res: 02/28/2026 Start: 02-28-2025 End: 02-28-2026 Parathyrin.intact [Mass/volume] in Serum or Plasma PTH, intact Lab Routine Other osteoporosis without current pathological fracture ([facility]) Expected: 02/28/2025 (Approximate), Expires: 02/28/2026 [facility] Comment on above: Expected: 02/28/2025 (Approximate), Expi res: 02/28/2026 Start: 02-28-2025 Potassium [Moles/volume] in Serum or Plasma [facility]OTAS[facility]UM [facility] Start: 02-28-2025 End: 02-28-2026 Renal function panel Renal function panel Lab Routine Other osteoporosis without current pathological fracture ([facility]/HCC) Expected: 02/28/2025 (Approximate), Expires: 02/28/2026 [facility] Comment on above: Expected: 02/28/2025 (Approximate), Expi res: 02/28/2026 Start: 02-28-2025 End: 02-28-2026 Sodium, urine, 24 hour Sodium, urine, 24 hour Lab Routine Other osteoporosis without current pathological fracture ([facility]) Expected: 02/28/2025 (Approximate), Expires: 02/28/2026 [facility] Comment on above: Expected: 02/28/2025 (Approximate), Expi res: 02/28/2026 Start: 02-28-2025 End: 02-28-2025 Patient encounter procedure [facility] Comment on above: Other osteoporosis without current patho logical fracture; Liver transplant status; Organ transplant Start: 02-10-2025 Medicare Annual Wellness (AWV) Medicare Annual Wellness (AWV) [facility] Start: 02-08-2025 End: 02-08-2025 Patient encounter procedure 02/08/2025 8:40 AM EDT Office Visit [facility] [address] [place] [address] Zuly Bruno NP [address] [place] [address] [facility] Start: 01-23-2025 Potassium [Moles/volume] in Serum or Plasma POTASSIUM [facility] Start: 12-26-[address] [facility] Start: 11-07-2024 End: 11-07-2024 Patient encounter procedure 11/07/2024 2:20 PM EST Office Visit [facility] [address] [place] [address] Zuly Bruno, [employer]IC PREPARER [address] [place] [phone] [facility] Start: 10-25-2024 End: 10-25-2024 Patient encounter procedure 10/25/2024 8:40 AM EST Office Visit [facility] [address] [place] [address] Zuly Bruno, [employer]USTIC PREPARER [address] [place] [phone] [facility] Start: 09-29-2024 Influenza vaccination Influenza Vaccine (#1) [facility] Comment on above: Postponed from 07/31/2024 (Patient Refus ed) Start: 09-07-2024 End: 09-07-2024 Telemedicine consultation with patient 09/07/2024 3:00 PM EDT Telemedicine Infectious Diseases Care [facility] [address] [facility] [address] [place] [phone] Evan White DO [address] [place] [address] Infectious Diseases Care [facility] Start: 08-31-2024 Screening for malignant neoplasm of lung [facility] Start: 08-23-2024 End: 08-23-2025 Bacteria identified in Urine by Culture Urine culture (clean catch) Microbiology Routine Dysuria Expected: 08/23/2024 (Approximate), Expires: 08/23/2025 [facility] Comment on above: Expected: 08/23/2024 (Approximate), Expi res: 08/23/2025 Start: 08-23-2024 End: 08-23-2025 DXA Skeletal system Views for bone density DEXA bone density Imaging Routine Immunocompromised (CMS/HCC) Organ transplant Expected: 08/23/2024, Expires: 08/23/2025 [facility] Work Phone: Comment on above: Expected: 08/23/2024, Expires: Start: 08-23-2024 End: 08-23-2025 Hemoglobin A1c/Hemoglobin.total in Blood Hemoglobin A1c Lab Routine Blood glucose elevated Expected: 08/23/2024 (Approximate), Expires: 08/23/2025 [facility] Comment on above: Expected: 08/23/2024 (Approximate), Expi res: 08/23/2025 Start: 08-23-2024 End: 08-23-2025 Lipid 1996 panel - Serum or Plasma Lipid panel Lab Routine Mixed hyperlipidemia (CMS/HCC) Expected: 08/23/2024 (Approximate), Expires: 08/23/2025 [facility] Comment on above: Expected: 08/23/2024 (Approximate), Expi res: 08/23/2025 Start: 08-23-2024 End: 08-23-2025 Prostate specific Ag [Mass/volume] in Serum or Plasma PSA Lab Routine Prostate cancer screening Expected: 08/23/2024 (Approximate), Expires: 08/23/2025 [facility] Comment on above: Expected: 08/23/2024 (Approximate), Expi res: 08/23/2025 Start: 08-23-2024 End: 08-23-2025 Thyrotropin [Units/volume] in Serum or Plasma TSH Lab Routine Tremor Expected: 08/23/2024 (Approximate), Expires: 08/23/2025 [facility] Comment on above: Expected: 08/23/2024 (Approximate), Expi res: 08/23/2025 Start: 08-23-2024 End: 08-23-2025 Urinalysis complete panel - Urine Urinalysis with reflex microscopic (clean catch) Lab Routine Dysuria Expected: 08/23/2024 (Approximate), Expires: 08/23/2025 [facility] Comment on above: Expected: 08/23/2024 (Approximate), Expi res: 08/23/2025 Start: 08-23-2024 End: 08-23-2025 US.doppler Carotid arteries - bilateral Vascular US carotid artery duplex bilateral Imaging Routine Left carotid bruit Mixed hyperlipidemia (CMS/HCC) Expected: 08/23/2024, Expires: 08/23/2025 [facility] Comment on above: Expected: 08/23/2024, Expires: Start: 08-23-2024 End: 08-23-2024 Patient encounter procedure 08/23/2024 8:40 AM EDT Office Visit [facility] [address] [place] [address] Zuly Bruno, BA [address] [place] [phone] Primary hypertension (CMS/HCC) (Primary Dx); Portal hypertension (CMS/HCC); Alcoholic cirrhosis of liver without ascites (CMS/HCC) [facility] Comment on above: Primary hypertension (CMS/HCC) (Primary Dx); Portal hypertension (CMS/HCC); Alcoholic cirrhosis of liver without ascites (CMS/HCC) Start: 08-22-2024 End: 08-22-2024 Patient encounter procedure 08/22/2024 9:00 AM EDT Office Visit [facility] [address] [place] [address] Zuly Bruno, BA [address] [place] [phone] [facility] Start: 07-31-2024 Influenza vaccination INFLUENZA VACCINE (#1) [facility] Start: 06-17-2024 End: 06-17-2024 ambulatory Comprehensive Transplant [facility] Start: 06-17-2024 End: 06-17-2024 Patient encounter procedure [facility] Start: 03-22-2024 Fasting lipid profile LIPID SCREENING [facility] Start: 03-22-2024 Lipid panel [facility] Start: 02-26-2024 End: 02-26-2024 Patient encounter procedure 02/26/2024 9:30 AM EDT Office Visit [facility] [address] [place] [phone] Candie Almaguer MD [address] [place] [phone] [facility] Start: 02-11-2024 End: 02-11-2024 Patient encounter procedure 02/11/2024 10:30 AM EDT Office Visit [facility] [address] [place] [phone] Zuly Bruno NP [address] [place] [phone] [facility] Start: 02-09-2024 End: 02-09-2024 Telemedicine consultation with patient 02/09/2024 3:30 PM EDT Telemedicine Infectious Diseases Care [facility] [address] [phone] Hakeem Alamo MD [address] [place] [address] Infectious Diseases Care [facility] Start: 01-15-2024 End: 01-15-2024 ambulatory [facility] Start: 01-15-2024 End: 01-15-2024 Patient encounter procedure [facility] Start: 01-06-2024 End: 01-06-2026 Echocardiogram 2D complete Echocardiogram 2D complete Echocardiography Routine DARLENE (obstructive sleep apnea) Primary hypertension (CMS/HCC) Bilateral lower extremity edema Shortness of breath Expected: 01/06/2024 (Approximate), Expires: 01/06/2026 [facility] Work Phone: Comment on above: Expected: 01/06/2024 (Approximate), Expi res: 01/06/2026 Start: 01-06-2024 End: 01-06-2024 Patient encounter procedure 01/06/2024 9:00 AM EST Office Visit [facility] [address] [place] [address] Zuly Bruno, BA [address] [place] [phone] [facility] Start: 12-08-2023 End: 09-07-2024 CT Chest WO contrast [facility] Work Phone: Start: 12-01-2023 COVID-19 VACCINE (2 - Moderna risk series) COVID-19 VACCINE (2 - Moderna risk series) [facility] Start: 09-23-2023 End: 09-23-2023 ambulatory Infectious Diseases Care [facility] Start: 09-23-2023 End: 09-23-2023 Telemedicine consultation with patient 09/23/2023 4:00 PM EDT Telemedicine Infectious Diseases Care [facility] [address] [place] [address] Hakeem Alamo MD [address] [facility] [address] [place], [place] [id number] Infectious Diseases Care [facility] Start: 09-15-2023 End: 09-10-2024 ITRACONAZOLE LEVEL [facility] Start: 08-25-2023 End: 08-25-2024 ALLOSCREEN RECIPIENT (POST TX PRA) ALLOSCREEN RECIPIENT (POST TX PRA) Lab Routine Kidney replaced by transplant Aftercare following organ transplant Immunosuppressed status High risk medication use Other general symptoms and signs Abnormal blood chemistry Expected: 08/25/2023, Expires: 08/25/2024 [facility] Comment on above: Expected: 08/25/2023, Expires: Start: 07-31-2023 Influenza vaccination [facility] Start: 06-12-2023 End: 06-12-2023 Patient encounter procedure 06/12/2023 Office Visit Transplant Surgery Steve Munoz MBBS [address] [place] [address] [facility] Transplant [facility] Start: 03-11-2023 End: 03-11-2023 Telemedicine consultation with patient 03/11/2023 Telemedicine Urology Ryan Yepez MD [address] [facility] [address] [place] [address] [facility] [place] Start: 01-16-2023 End: 01-16-2023 Patient encounter procedure 01/16/2023 Office Visit Transplant Surgery [facility] Transplant [facility] Start: 10-31-2022 End: 10-31-2022 Patient encounter procedure 10/31/2022 Office Visit Transplant Surgery Steve Munzo, MBBS [address] [place] [id number] [facility] Transplant [facility] Start: 09-10-2022 End: 09-10-2023 PSA screening PSA, SCREENING Lab Routine BPH with obstruction/lower urinary tract symptoms Encounter for screening for malignant neoplasm of prostate Expected: 09/10/2022 (Approximate), Expires: 09/10/2023 [facility] Comment on above: Expected: 09/10/2022 (Approximate), Expi res: 09/10/2023 Start: 08-11-2022 End: 08-11-2022 Patient encounter procedure 08/11/2022 Office Visit UrologRyan Batista MD [address] [facility] [address] [place] [phone] [facility] [place] Start: 07-31-2022 Influenza vaccination [facility] Start: 07-07-2022 End: 07-07-2022 Patient encounter procedure 07/07/2022 Office Visit Ryan Webster MD [address] [facility] [address] [place] [address] [facility] [place] Start: 07-07-2022 End: 07-07-2023 FLUORO IMAGING FOR UROLOGY [facility] Comment on above: Expected: 07/07/2022, Expires: 3 1 Occurrences starti ng 07/07/2022 until 07/07/2022 Start: 06-27-2022 End: 06-27-2022 Patient encounter procedure 06/27/2022 Office Visit Urology Ryan Yepez MD [address] [facility] [address] [place] [phone] Urology Eye [facility] [place] Start: 06-27-2022 End: 06-27-2023 Basic metabolic 2000 panel - Serum or Plasma BASIC METABOLIC PANEL Lab Routine Other hydronephrosis Expected: 06/27/2022, Expires: 06/27/2023 [facility] Comment on above: Expected: 06/27/2022, Expires: 3 Start: 06-27-2022 End: 06-27-2022 Patient encounter procedure 06/27/2022 Appointment Computerized Tomography Scan Ryan Yepez MD [address] [facility] [address] [place] [phone] Department of Radiology Start: 06-15-2022 End: 05-16-2023 CT Abdomen and Pelvis WO contrast CT ABDOMEN/PELVIS WITHOUT CONTRAST Imaging Routine FAYE (acute kidney injury) Expected: 06/15/2022 (Approximate), Expires: 05/16/2023 [facility] Work Phone: Comment on above: Expected: 06/15/2022 (Approximate), Expi res: 05/16/2023 Start: 06-12-2022 End: 06-12-2022 Patient encounter procedure 06/12/2022 Office Visit Transplant Surgery Steve Munoz MBBS [address] [place] [address] [facility] Start: 06-11-2022 End: 06-11-2023 BK VIRUS DNA QN, PCR, PLASMA BK VIRUS DNA QN, PCR, PLASMA Lab Routine Kidney replaced by transplant Liver replaced by transplant Abnormal blood chemistry Expected: 06/11/2022, Expires: 06/11/2023 [facility] Comment on above: Expected: 06/11/2022, Expires: Start: 06-04-2022 End: 06-04-2022 Patient encounter procedure 06/04/2022 Office Visit [facility]ventional [facility]iology [facility] Start: 10-18-2021 End: 10-18-2021 Patient encounter procedure 10/18/2021 Office Visit Transplant Surgery Steve Munoz, LU [address] [place] [address] [facility] Start: 07-31-2021 Influenza vaccination INFLUENZA VACCINE (#1) [facility] Start: 07-26-2021 End: 07-26-2021 Patient encounter procedure 07/26/2021 Office Visit Transplant Surgery [facility] Start: 2021 Prostate specific antigen measurement [facility] Start: 2021 Screening for malignant neoplasm of lung LUNG CANCER SCREENING [facility] Start: 2021 Zoster vaccine hzv live for subcutaneous use ZOSTER (SHINGLES) VACCINE (1 of 2) [facility] Start: 09-20-2020 Colonoscopy COLORECTAL CANCER SCREENING DISCUSSION [facility] Start: 09-20-2020 Screening for malignant neoplasm of colon [facility] Start: 07-31-2019 Influenza vaccination Flu vaccine (#1) [place], [place] Start: 05-22-2019 Annual Wellness Visit (AWV) Annual Wellness Visit (AWV) [place] Start: 04-18-2019 End: 10-19-2019 Ultrasonography of abdomen US ABDOMEN RUQ/LIVER/GB Routine Cirrhosis of liver without ascites, unspecified hepatic cirrhosis type Expected: 04/18/2019 (Approximate), Expires: 10/19/[address] [facility] Work Phone: Comment on above: Expected: 04/18/2019 (Approximate), Expi res: 10/19/2019 Start: 01-25-2019 End: 01-25-2019 Ambulatory 01/25/2019 Office Visit Gastroenterology Christin [place], SAP SPECIALIST-[employer] MEDIA SPECIALIST [address] [place] [address] Division of [...] for liver transplant Expected: 10/12/2018, Expires: 10/12/2019 [facility] Work Phone: Comment on above: Expected: 10/12/2018, Expires: 9 Start: 10-12-2018 End: 10-12-2019 TYPE AND SCREEN - NOT FOR TRANSFUSION TYPE AND SCREEN - NOT FOR TRANSFUSION Routine Alcoholic cirrhosis, unspecified whether ascites present Pre-transplant evaluation for liver transplant Expected: 10/12/2018, Expires: 10/12/2019 [facility] Work Phone: Comment on above: Expected: 10/12/2018, Expires: 9 Start: 07-31-2018 Influenza vaccination INFLUENZA VACCINE (#1) [facility] Work Phone: Start: 2011 Fasting lipid profile LIPID SCREENING [facility] Work Phone: Start: 2011 Lipid screen Lipid screen [facility], [place] Start: 1990 DTaP/Tdap/Td vaccine (1 - Tdap) DTaP/Tdap/Td vaccine (1 - Tdap) [place], [place] Start: 1990 Hepatitis B vaccination HEP B VACCINE (1 of 3 - 19+ 3-dose series) [facility] Start: 1990 Hepatitis B Vaccine (1 of 3 - Risk Recombivax 3-dose series) Hepatitis B Vaccine (1 of 3 - Risk Recombivax 3-dose series) [place] Start: 1990 Third diphtheria, tetanus and acellular pertussis (DTaP) vaccination [facility] Start: 1990 Zoster vaccine hzv live for subcutaneous use ZOSTER (SHINGLES) VACCINE (1 of 2) [facility] Start: 1990 [facility] Start: 1989 Tetanus vaccination TETANUS [facility] Start: 1986 HIV screen HIV screen [place], [place] Start: 02-17-1984 HIV screening HIV SCREENING DISCUSSION [facility] Work Phone: Start: 1983 COVID-19 VACCINE (1) COVID-19 VACCINE (1) [facility] Start: 1982 DTaP/Tdap/Td vaccine (1 - Tdap) DTaP/Tdap/Td vaccine (1 - Tdap) [place] Start: 1977 Pneumococcal 0-64 years Vaccine (1 of 3 - PCV13) Pneumococcal 0-64 years Vaccine (1 of 3 - PCV13) [place] Start: 1977 PNEUMOCOCCAL VACCINE SERIES (1 - PCV) PNEUMOCOCCAL VACCINE SERIES (1 - PCV) [facility] Start: 1977 PNEUMOCOCCAL VACCINE SERIES (1 of 2 - PCV) PNEUMOCOCCAL VACCINE SERIES (1 of 2 - PCV) [facility] Start: 1977 [facility] Start: 02-17-1976 COVID-19 VACCINE (#1) COVID-19 VACCINE (#1) [facility] Start: 02-17-1976 [facility] Start: 1971 COVID-19 VACCINE (#1) COVID-19 VACCINE (#1) [facility] Start: 1971 Hepatitis B vaccination HEP B VACCINE (1 of 3 - 3-dose series) [facility] Start: 1971 Medicare Annual Wellness (AWV) Medicare Annual Wellness (AWV) [facility] Start: 1971 Screening for malignant neoplasm of colon [facility] Start: 1971 Tetanus vaccination [facility] BK VIRUS DNA QN, PCR , PLASMA BK VIRUS DNA QN, PCR, PLASMA Lab Routine Kidney replaced by transplant Liver replaced by transplant Abnormal blood chemistry 06/12/2022 3:38 PM EDT [facility] CALCULI, URINARY (KIDNEY STONE) CALCULI, URINARY (KIDNEY STONE) Fluids Routine 05/19/2022 8:16 AM EDT [facility] Work Phone: CANNABINOIDS, QUANT (URINE)THC CONFIRMATION CANNABINOIDS, QUANT (URINE)THC CONFIRMATION Routine Alcoholic cirrhosis, unspecified whether ascites present ESRD (end stage renal disease) on dialysis Pre-transplant evaluation for liver transplant 10/12/2018 12:57 PM [facility] Work Phone: End: 09-10-2024 CHEM 6 (LYTES, BUN CREA) [facility] EBV VCA IGG AB EBV VCA IGG AB R outine Alcoholic cirrhosis, unspecified whether ascites present ESRD (end stage renal disease) on dialysis Pre-transplant evaluation for liver transplant 10/12/2018 12:57 PM [facility] Work Phone: Fungus identified in Unspecified specimen by Culture [facility] HLA TYPING (SOLID ORGAN) HLA TYPING (SOLID ORGAN) Routine Alcoholic cirrhosis, unspecified whether ascites present ESRD (end stage renal disease) on dialysis Pre-transplant evaluation for liver transplant 10/12/2018 12:57 PM [facility] Work Phone: HSV 1 AND 2 IGG ANTIBODY HSV 1 AND 2 IGG ANTIBODY Routine Alcoholic cirrhosis, unspecified whether ascites present ESRD (end stage renal disease) on dialysis Pre-transplant evaluation for liver transplant 10/12/2018 12:57 PM [facility] Work Phone: MR Abdomen WO and W contrast IV MRI ABDOMEN WITH AND WITHOUT CONTRAST Imaging Routine Liver lesion Ordered: 06/17/2024 [facility] Comment on above: Ordered: 06/17/2024 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 specific culture [facility] Patient Education Hemorrhoids ED Diverticulosis Know your Meds [facility] Work Phone: PLACEMENT NEPHROSTOM Y CATHETER PERCUTANEOUS W/ IMAGE GUIDANCE PLACEMENT NEPHROSTOMY CATHETER PERCUTANEOUS W/ IMAGE GUIDANCE Imaging Routine Hydronephrosis due to obstruction of ureteral orifice FAYE (acute kidney injury) 05/17/2022 11:08 AM EDT [facility] VT POST VOID RESIDUAL VT POST VO ID RESIDUAL VT - OFFICE PERFORMED Routine BPH with obstruction/lower urinary tract symptoms Ordered: 09/10/2022 [facility] Comment on above: Ordered: 09/10/2022 PTH INTACT PTH INTACT Routi ne Alcoholic cirrhosis, unspecified whether ascites present ESRD (end stage renal disease) on dialysis Pre-transplant evaluation for liver transplant 10/12/2018 12:57 PM [facility] Work Phone: RUBEOLA IGG AB (IMMU NE STATUS) RUBEOLA IGG AB (IMMUNE STATUS) Routine Alcoholic cirrhosis, unspecified whether ascites present ESRD (end stage renal disease) on dialysis Pre-transplant evaluation for liver transplant 10/12/2018 12:57 PM [facility] Work Phone: End: 01-16-2024 Standard ECG ECG ECG Routine One Time for 1 Occurrences starting 01/16/2024 until 01/16/2024 [facility] Comment on above: One Time for 1 Occurrences starting 12/31 until 01/16/2024 End: 09-10-2024 TACROLIMUS LEVEL, TROUGH (PRE DRUG LEVEL) [facility] VARICELLA IGG AB (IM M STATUS) VARICELLA IGG AB (IMM STATUS) Routine Alcoholic cirrhosis, unspecified whether ascites present ESRD (end stage renal disease) on dialysis Pre-transplant evaluation for liver transplant 10/12/2018 12:[address] [facility] Work Phone: Immunizations Immunization Date Immunization Notes Care Provider Zeeshan yi 11-01-2024 influenza virus vaccine, unspecified formulation Steph Orzech [facility] 11-01-2024 influenza, seasonal, injectable, preservative free Zuly Bruno CAUSTIC PREPARER [facility] 11-03-2023 influenza virus vaccine, unspecified formulation Generic Provider [facility] 11-03-2023 Influenza, injectabl e, Madin Jing Canine Kidney, preservative free, quadrivalent Generic Provider [facility] 11-03-2023 Moderna SARS-CoV-2 50mcg/0.5mL Booster Generic Provider [facility] 08-28-2022 influenza virus vaccine, unspecified formulation Steph Orzech [facility] 08-28-2022 influenza, injectabl e, quadrivalent, preservative free Generic Provider [facility] 09-30-2021 influenza virus vaccine, unspecified formulation Steph Orzech [facility] 09-30-2021 influenza, injectabl e, quadrivalent, preservative free Generic Provider [facility] 09-30-2021 SARS-CoV-2 (COVID-19 ) mRNA-1273 vaccine Steph Orzech [facility] 02-21-2021 SARS-CoV-2 (COVID-19 ) mRNA-1273 vaccine Steph Orzech [facility] 01-24-2021 SARS-CoV-2 (COVID-19 ) mRNA-1273 vaccine Steph Orzech [facility] 10-16-2020 influenza virus vaccine, unspecified formulation Steph Orzech [facility] 10-16-2020 influenza, injectabl e, quadrivalent, contains preservative Generic Provider [facility] Payers Date Payer Category Payer Self-pay 2019 Unknown [id number] 2019 Unknown [facility] [id number] 2019-Present [id number] 2018 Medicaid [place] [facility] DEPT OF JOB xxxxxxxxxxxx 2018-Present [phone] [address] [place] [address] xxxxxxxxxxxx [id number] 2018 Medicaid MEDICAID MEDICAI D [id number] 2018-Present [address] [place] [address] [id number] .[id number] 2018 Medicaid [id number] [id number] .[id number] 2018 Medicare MEDICARE MEDICAR E PART A AND B xxxxxxxxxxx 2018-Present [phone] [address] [address] [place] [address] xxxxxxxxxxx [id number] .[id number] 2018 Medicare [id number] 2018 Medicare MEDICARE MEDICAR E A AND B [id number] 2018-Present [address] [place] [address] [id number] .[id number] 2018 Medicare [id number]. 1.13.172.2.7.3 .[id number] 1971 Unknown [id number] 2.16.840.1.937483.3.579.2.173 1971 Unknown [id number] 2.16.840.1.909875.3.579.2.173 1971 Unknown [id number] 2.16.840.1.165900.3.579.2.173 1971 Unknown [id number] 2.16.840.1.485132.3.579.2.173 1971 Unknown [id number] 2.16.840.1.418118.3.579.2.173 1971 Unknown [id number] 2.16.840.1.799653.3.579.2.173 1971 Unknown [id number] 2.16.840.1.452441.3.579.2.173 1971 Unknown [id number] 2.16.840.1.145910.3.579.2.173 1971 Unknown [id number] 2.16.840.1.841579.3.579.2.647 1971 Unknown [id number] 2.16.840.1.206969.3.579.2.593 1971 Unknown [id number] 2.16.840.1.077972.3.579.2.593 1971 Unknown [id number] 2.16.840.1.360703.3.579.2.593 1971 Unknown [id number] 2.16.840.1.610775.3.579.2.593 1971 Unknown [id number] 2.16.840.1.796379.3.579.2.593 1971 Unknown [id number] 2.16.840.1.808146.3.579.2.593 1971 Unknown [id number] 2.16.840.1.792639.3.579.2.593 1971 Unknown [id number] 2.16.840.1.363698.3.579.2.593 1971 Unknown [id number] 2.16.840.1.285600.3.579.2.593 1971 Unknown [id number] 2.16.840.1.951893.3.579.2.593 1971 Unknown [id number] 2.16.840.1.146115.3.579.2.593 1971 Unknown [id number] 2.16.840.1.351178.3.579.2.593 1971 Unknown [id number] 2.16.840.1.471541.3.579.2.593 1971 Unknown [id number] 2.16.840.1.301764.3.579.2.593 1971 Unknown [id number] 2.16.840.1.434379.3.579.2.593 1971 Unknown [id number] 2.16.840.1.392344.3.579.2.727 1971 Unknown [id number] 2.16.840.1.887188.3.579.2.727 1971 Unknown [id number] .16.840.1.943341.3.579.2.727 1971 Unknown [id number] 2.16.840.1.143775.3.579.2.727 1971 Unknown [id number] .16.840.1.144033.3.579.2.727 1971 Unknown [id number] 2.16.840.1.779711.3.579.2.594 1971 Unknown [id number] 2.16.840.1.074936.3.579.2.594 1971 Unknown [id number] 2.16.840.1.279244.3.579.2.594 1971 Unknown [id number] 2.16.840.1.844131.3.579.2.594 1971 Unknown [id number] 2.16.840.1.345930.3.579.2.125 9 1971 Unknown [id number] 2.16.840.1.553513.3.579.2.125 9 1971 Unknown [id number] 2.16.840.1.343437.3.579.2.125 9 1971 Unknown [id number] 2.16.840.1.000091.3.579.2.125 9 1971 Unknown [id number] 2.16.840.1.012012.3.579.2.125 9 1971 Unknown [id number] 2.16.840.1.825609.3.579.2.125 9 1971 Unknown [id number] 2.16.840.1.472400.3.579.2.125 9 1971 Unknown [id number] 2.16.840.1.833448.3.579.2.125 9 1971 Unknown [id number] 2.16.840.1.389871.3.579.2.125 9 1971 Unknown [id number] 2.16.840.1.662548.3.579.2.125 9 1971 Unknown [id number] 2.16.840.1.655428.3.579.2.125 9 1971 Unknown [id number] 2.16.840.1.940325.3.579.2.125 9 1959 Medicaid [id number] 1959 Medicare [id number] Unknown [id number] 2.16.840.1.298399.3.579.2.531 Social History Date Type Detail Facility Start: 10-19-2018 End: 11-03-2023 Tobacco smoking status [facility] Former smoker [facility] Start: 07-19-1988 End: 05-14-2018 History of tobacco use Current smoker [facility] Work Phone: Start: 07-19-1988 End: 05-14-2018 History of tobacco use Cigarette Smoker [facility] Work Phone: Start: 10-19-2018 End: 02-06-2025 Cigarettes smoked current (pack per day) - Reported [facility] End: 07-19-1994 History of tobacco use Chews Tobacco [facility] Work Phone: Start: 1970 Sex Assigned At Not on file [facility] Work Phone: Start: 11-03-2018 Alcohol intake Current non-drinker of alcohol (finding) [place] Start: 06-22-2018 Alcohol Comment Hx of alcoholism [place] Start: 11-03-2018 End: 02-06-2025 Alcohol intake No [facility] Start: 07-19-2018 Tobacco use and exposure Former user [facility] Start: 09-06-2020 End: 02-08-2025 Alcohol intake Ex-drinker (finding) [facility] Start: 07-19-2018 Alcohol Comment stopped 05/14/2018 [facility] Start: 05-05-2022 End: 01-16-2023 Exposure to SARS-CoV-2 (event) Not sure [facility] Start: 07-07-2018 Gender identity Identifies as male gender (finding) [facility] Start: 01-16-2022 Sexual orientation Heterosexual (finding) [facility] Start: 11-03-2023 Tobacco use and [...] - these days [OSQ] To some extent [facility] (I/We) worried wheth er (my/our) food would run out before (I/we) got money to buy more. Never true [facility] Start: 11-02-2023 Alcohol Comment Former [facility] Start: 09-08-2024 End: 01-03-2025 Tobacco smoking status Never smoked tobacco (finding) [facility] Do you belong to any clubs or organizations such as hinduism groups, unions, fraternal or athletic groups, or school groups? Yes [facility] Are you now , , , , never or living with a partner? [facility] Start: 12-15-2024 End: 12-26-2024 Sex Male (finding) [facility] Start: 1970 Sex Assigned At Male [facility] Do you feel stress - tense, restless, nervous, or anxious, or unable to sleep at night because your mind is troubled all the time - these days [OSQ] Not at all [facility] Medical Equipment Procedure Code Equipment Code Equipment Original Text Equipment Identifier Dates [id number] Start: 05-23-2020 [id number] Start: 04-12-2020 [id number] [facility] Start: 05-17-2022 Comment on above: Description: Implant time-out completed by intra-procedural staff including this RN, accredited pharmacy technician, and performing physician. The following [...] 01-03-2025 Functional Status N/A [facility] [place] 11-22-2024 Functional Status N/A [facility] 09-08-2024 Functional Status N/A [facility] Clinical Notes 06-14-2021 to 02-28-2025 Tony Hernandez MD - 02/28/2025 9:10 AM EDT Note Date & Type Note Facility 02-28-2025 History of Present illness Narrative George Styles is a 55 y.o. male Zuly Bruno NP presents with chief complaint of Osteoporosis (NEW REF/DEXA SCAN) HPI: HPI 02/2025 New patient sent for osteoporosis for DEXA scan done in August/2024 L2-L4 1.210, T-score -0.3, left femoral neck 0.826 T-score -1.4, right femoral neck 0.740 T-score -2.5, he has liver and kidney transplant back in 2020, he is on myfortic and Prograf, not on any steroids, lab November/2024 and creatinine 1.39 he is not on any calcium supplements. SUBJECTIVE: MEDICATIONS: Current Outpatient Medications Medication Instructions allopurinol (ZYLOPRIM) 200 mg, Oral, Daily, Take 2 tablets by mouth in the morning. amLODIPine (NORVASC) 5 mg, Oral, Daily aspirin [...] 3350 (GLYCOLAX) 17 g, Daily RT Prograf 0.5 mg, Every 12 hours sulfamethoxazole-trimethoprim (Bactrim DS) 800-160 MG per tablet 1 tablet, 3 times weekly tacrolimus (PROGRAF) 0.2 mg, Every 12 hours tadalafil (CIALIS) 10 mg, Daily PRN tamsulosin (FLOMAX) 0.4 mg torsemide (DEMADEX) 20 mg, Daily RT ALLERGIES: Allergies Allergen Reactions Shellfish-Derived Products Swelling Patient with lip and tongue swelling. Past Medical History: Diagnosis Date Abdominal pain, [...] 02/11/2024 Right nephrolithiasis 02/11/2024 S/P liver transplant ([facility]) Takes dietary supplements Tremor 11/03/2023 Umbilical hernia [...] WO IV CONTRAST ORIF ANKLE FRACTURE Right REVIEW OF SYMPTOMS: 14 POINT OF SYSTEM REVIEWED AND NEGATIVE OBJECTIVE: Visit Vitals BP 138/90 Pulse 86 Resp 18 Ht 5' 7 Wt 206 lb SpO2 95% BMI 32.26 kg/m Smoking Status Former BSA 2.1 m Physical Exam Constitutional: Appearance: Normal appearance. He is normal weight. HENT: Head: Normocephalic and atraumatic. Right Ear: External ear normal. Nose: Nose normal. Mouth/Throat: Pharynx: Oropharynx is clear. Eyes: Extraocular Movements: Extraocular movements intact. Pupils: Pupils are equal, round, and reactive to light. Cardiovascular: Rate and Rhythm: Normal rate and regular rhythm. Pulmonary: Effort: Pulmonary effort is normal. Abdominal: General: Abdomen is flat. Palpations: Abdomen is soft. Musculoskeletal: General: Normal range of motion. Skin: General: Skin is warm. Neurological: General: No focal deficit present. Mental Status: He is alert. Psychiatric: Mood and Affect: Mood normal. Behavior: Behavior normal. ASSESSMENT AND PLAN: Assessment/Plan Diagnoses and all orders for this visit: Other osteoporosis without current pathological fracture - Ambulatory referral to Endocrinology - Magnesium; Future - PTH, intact; Future - Renal function panel; Future - Sodium, urine, 24 hour; Future - Creatinine, urine, 24 hour; Future - Calcium, urine, 24 hour; Future - Vitamin D 25 hydroxy; Future We will check all lab together monitor kidney function, 24 hour urine calcium,cr,na and I will see her in 3 weeks to give further recommendation, most likely we will start him on Prolia subcutaneous every 6 months Liver transplant status He is on Prograf and Myfortic Organ transplant Follow up in about 3 weeks (around 03/21/2025). documented in this encounter [facility] 01-03-2025 Hospital Discharge instructions Patient Education 01/03/2025 [...] urethra. Follow these instructions at home: Take imdv-scy-lwibwrw and prescription medicines only as told by [...] provider. Document Revised: 06/04/2022 Document Reviewed: 06/04/2022 [employer] Patient Education 2023 [employer]. Follow Up Care 12/27/2024 09:54:21 With:JONATHAN Almodovar APRN, RUMA La, URL Address: When: Unknown [facility] [place] 01-03-2025 Note Patient Education Urology Benign Prostatic [...] Follow these instructions at home: ??? Take cmbz-jie-awgpjum and prescription medicines only as told by [...] do not get (more content not included)... [facility] 12-26-[address] [facility] 12-15-2024 Evaluation note Authored December 15, [...] twice or three times daily if needed. [facility] Work Phone: [phone] Hospital Discharge instructions Patient Education 11/22/2024 09:57:55 [...] if anything looks unusual. Males with a wwtgmh-sduv-gldmrl risk for skin cancer may want to see a hide or skin buffer (studio designer) for an annual body check. Where to find more information [employer] [employer]: cancer.org Centers for Disease Control and Prevention: cdc.gov National Cancer [place]: cancer.gov Contact a health care provider if: [...] provider. Document Revised: 11/24/2023 Document Reviewed: 06/08/2023 [employer] Patient Education 2023 [employer]. 11/22/2024 09:57:51 Erectile Dysfunction Erectile Dysfunction Erectile [...] Follow these instructions at home: Medicines Take njdk-zvb-agtdgxx and prescription medicines only as told by [...] provider. Document Revised: 02/12/2022 Document Reviewed: 02/12/2022 [employer] Patient Education 2023 [employer]. 11/22/2024 09:57:50 Benign Prostatic Hyperplasia Benign Prostatic [...] urethra. Follow these instructions at home: Take cudr-amz-kxfsewl and prescription medicines only as told by [...] provider. Document Revised: 06/04/2022 Document Reviewed: 06/04/2022 [employer] Patient Education 2023 [employer]. Follow Up Care 09/08/2024 14:18:18 With:Clementina James, URL Address: When: Unknown Comments:4 mos [facility] 12-24-2024 NotePatient Education Oncology Cancer Screening for [...] if anything looks unusual. Males with a pgcqmj-qgpx-rgcorl risk for skin cancer may want to see a hide or skin buffer (dermatologi (more content not included)...[facility]12-09-[facility] History of Present illness Narrative* [...] 02/11/2024 Right nephrolithiasis 02/11/2024 S/P liver transplant ([facility]) Takes dietary supplements Tremor 11/03/2023 Umbilical hernia [...] Ginette, continues w hepatology documented in this encounterFitzgibbon [id number] Instructions* Patient Instructions* Zuly Bruno NP - 11/07/2024 2:20 PM EST No medication dose changes Recommend cutting back on snacking, goal for 10 pounds weight loss by next visit Exercise as tolerated, most days of the week for approx 30 minutes, treadmill is great option Will reach out again to transplant team about options for osteoporosis documented in this encounterFitzgibbon [id number] History of Present illness Narrative* Gopi Noyola - 10/31/2024 12:18 PM EST [facility]REACH AD[facility]ANC[facility]: Shipping/Pickup: Patient has affirmed needing a refill of the following medications for Shipment (11/01) : Med Name: Mycophenolate 360mg Med Name: Tacrolimus 0.5mg Contact Info: Specialty ([place]) [phone] [facility] [phone] [facility] [phone] David [phone] [facility]) [phone] documented in this encounterDayton [facility] Center10-10-[facility]24 Hospital Discharge instructions Patient Education 09/08/2024 [...] urethra. Follow these instructions at home: Take ptzu-mcb-jmfvqse and prescription medicines only as told by [...] provider. Document Revised: 06/04/2022 Document Reviewed: 06/04/2022 [employer] Patient Education 2023 [employer]. 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 Screening PSA (prostate specific antigen) (Z12.5: Encounter for screening for malignant neoplasmof prostate) No PSA records on file -Will discuss with patient at his follow up Ordered: E&M of New Patient Moderate 45-59 Min 85499 3. History of kidney transplant (Z94.0: Kidney transplant status) 08/29/24 - BUN 18, Cre 1.3, GFR 58 Pt had liver and kidney transplant in 2019 and follows yearly with [facility]. Ordered: E&M of New Patient Moderate 45-59 Min 97152 Orders: tamsulosin, 0.4 mg = 1 cap(s), Oral, BID, X 30 day(s), # 60 cap(s), Refills(s) 11, Pharmacy: [facility], 170, cm, 09/08/24 14:00:00 EDT, Height/Length Dosing, 90, kg, 09/08/24 14:00:00 EDT, Weight Dosing 22821 Measure Post Void residual urine and/or bladder capacity by US- non-imaging Urnls Dip Stick Auto w/o Microscopy POC 88634 Follow-up With When Contact Information Clementina James URL Within 3 months Additional Instructions: med [...] Glucose Urine Dipstick: Negative (more content not included)...[facility] Center[facility] on [facility]:Result Comment: Electronically Signed By: Clementina James\.br\Date and Time Signed: 09/08/24 14:33 [id number] Note Patient Education Urology Benign Prostatic Hyperplasia [...] Follow these instructions at home: ? Take sjit-vol-jsmwrby and prescription medicines only as told by [...] You develop side effec (more content not included)...[facility]10-07-[facility] History of Present illness Narrative* [...] No Receive/Pickup Date: 09/06/2024 Shipping Address: [address] [place] [address] Contact Info: Specialty ([place]) [phone] Jakob [phone] [facility] [phone] [facility] [phone] Bed[facility]) [phone] documented in this encounterDayton [facility] Medical Center09-24-2024 History of Present illness Narrative* Zuly [...] 02/11/2024 Right nephrolithiasis 02/11/2024 S/P liver transplant (CMS/HCC) Takes dietary supplements Tremor 11/03/2023 Umbilical hernia [...] Follows yearly with Hepatology documented in this [facility]09-24-2024 Instructions* Patient Instructions* Zuly Bruno NP - 08/23/2024 8:40 AM EDT Labs, referrals to : GI, Urology Tests: bone density test documented in this [facility]07-25-2024 History of Present illness Narrative* Starla Edwards [...] No Receive/Pickup Date: 06/29/2024 Shipping Address: [address] [place] [address] Contact Info: Specialty ([place]) [phone] Jakob [phone] [facility] [phone] David [phone] Bed[facility] ([facility]) [phone] documented in this encounterDayton VA Medical Center07-19-2024 History of Present illness Narrative* Daisha Max DO - 06/17/2024 10:00 AM EDT -Referring Provider for today's consult: Self, Self -Primary Care Provider: Zuly Bruno History of Present Illness George Styles is a 54 y.o. male who presents [facility] the [facility] Transplant Hepatology Clinic today for follow-up of [...] Left; Surgeon: Jyoti Bryant MD, PhD; Location: [facility] MAIN OR PLACEMENT NEPHROSTOMY CATHETER PERCUTANEOUS W/ IMAGE GUIDANCE 05/17/2022 Surgeon: Enzo Heart DO; Location: [facility] INTERVENTIONAL RADIOLOGY (VIR) LIVER TRANSPLANT, ORTHOTOPIC N/A 04/12/2020 Laterality: N/A; Surgeon: LU Palma; Location: [facility] SAME DAY SURGERY MAIN OR KIDNEY TRANSPLANT W/O ALGAACIQ NEPHRECTOMY N/A 04/12/2020 Laterality: N/A; Surgeon: LU [...] 0.2 06/13/2024 Explant Pathology Pathologic Diagnosis A. Ione liver, orthotopic liver transplant resection (1458 gram): [...] up in 1 year. Daisha Max DO Inventory Auditor Gastroenterology, Hepatology and Nutrition [facility] Pager: [phone] * José Miguel Garnica RN - 06/17/2024 10:00 AM EDT Images from the original note were not included. 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 Regional Maintenance Manager: Anayeli Burt Date of Liver Transplant: 04/13/2020 (Kidney), 04/13/2020 (Liver) 4 years, 2 months post Liver/KidneyTransplant Primary Disease: Hypertensive Nephrosclerosis Transplant Route Driver: Erma Roe/ Daisha Max Primary Care physician: [...] LAB AND PHARMACY: None Specified [id number] [place] [address] - [address] [facility] [address] [facility] [facility] [address] [facility] [address] [facility] [facility] [address] [id number] [place] [address] [address] [facility] [address] [facility] [address] [facility] Jakob [address], [address] [facility] [address] ROS and SCREEN: Chest Pain: negative Cough: [...] year: no Do you follow with a Procedure Manager? yes Do you have a Primary [...] TO ADDRESS WITH PHYSICIAN: documented in this encounterDayton VA Medical Center07-19-2024 Instructions* Patient Instructions* Ashlee Fair RN - 06/17/2024 10:00 AM EDT - No medication changes from a liver standpoint - A MRI Abdomen has been ordered today. Please call central scheduling at [phone] to schedule or take paper copy to your local hospital - Return to clinic 06/16/2025 TRANSPLANT HEPATOLOGY 3, [facility] as scheduled documented in this encounterDayton VA Medical Center07-19-2024 History of Present illness Narrative* Rebeca Gutierrez, SAP SPECIALIST-HIGH SCHOOL LIBRARY MEDIA SPECIALIST - 06/17/2024 9:30 AM EDT Images from the original note were not included. George Styles is a 54 y.o. 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 The HLA mismatch was 1A,2B, 1DR. No longer follows with a local placement assistant. History of Present Illness: Since George was [...] and lab results. Rebeca Gutierrez MSN, RN, SAP SPECIALIST-BC, CCTN Certified Nurse Practitioner [facility] [address] [facility] [address] documented in this encounterDayton VA Medical Center07-19-2024 Instructions* Patient Instructions* JEANNA Hess - 06/17/2024 9:30 AM EDT Tacrolimus - increase to 0.2 mg packet three time per day; goal 3 to 5 ng/dL ; when the itraconazole stops 09/03/2024, reduce to 0.5 mg twice daily. Once your tacrolimus level is 3-5 ng/dL, you may reduce labs to every other week. documented in this encounterDayton VA Medical Center06-27-2024 History of Present illness Narrative* Destiny Jensen - 05/26/2024 4:33 PM EDT [facility]: Call Information: Date and Time of Contact: 05/26/2024 4:35 PM Method of Contact: By Phone Contact Type: Prescriptions Contactor: [facility] OP Contactee: Patient Contact Outcome: Left message and Follow-up Contact Info: Specialty ([place]) [phone] Jakob [phone] [facility] [phone] David [phone] [facility]) [phone] * Melody Reyez - 05/26/2024 4:33 PM EDT [facility]: Call Information: Date and Time of Contact: 05/30/2024 4:52 PM Method of Contact: By Phone Contact Type: Prescriptions Contactor: Patient Contactee: [facility] OP Shipping/Pickup: Medicare B Refill?: No Medication Name: Myco sod 360mg, Prograf 0.2mg Delivery Method: Ship Delivery Location: Home Signature Required: No Receive/Pickup Date: 06/06/2024 Shipping Address: [address] [place] [address] Contact Info: Specialty ([place]) [phone] Jakob [phone] [facility] [phone] David [phone] Bed[facility] ([facility]) [phone] documented in this encounterDayton VA Medical Center06-14-2024 NoteUT Cardiology - [facility] Subjective George Styles is a 54 [...] Disp: , Rfl: t (more content not included)...[facility]04-25-2024 History of Present illness Narrative* Melody Reyez - 03/24/2024 4:12 PM EDT [facility]: Call Information: Date and Time of Contact: 03/24/2024 4:14 PM Method of Contact: By Phone Contact Type: Prescriptions Contactor: [facility] OP Contactee: Patient Contact Outcome: Left message Shipping/Pickup: Medication Name: Prograf 0.2mg pack Contact Info: Specialty ([place]) [phone] Jakob [phone] [facility] [phone] David [phone] Bed[facility] ([facility]) [phone] * Starla Edwards - 03/24/2024 4:12 PM EDT [facility] OUTREACH ADVANCED: Call Information: Date and Time of Contact: 03/28/2024 3:58 PM Method of Contact: By Phone Contact Type: Prescriptions Contactor: [facility] OP Contactee: Patient Contact Outcome: Left message and Call back later Shipping/Pickup: Medication Name: Mycophenolate, prograf Contact Info: Specialty ([place]) [phone] Jakob [phone] [facility] [phone] David [phone] Bed[facility]) [phone] * Gabbi Rajput - 03/24/2024 4:12 PM EDT [facility]REACH [facility]: Call Information: Method of Contact: By Phone Contact Type: Prescriptions Contactor: Patient Contactee: [facility] OP Shipping/Pickup: Medicare B Refill?: No Medication Name: Mycopheolate 360mg and Prograf Delivery Method: Ship Delivery Location: Home Signature Required: No Receive/Pickup Date: 04/04/2024 Shipping Address: [address] [place] [address] Contact Info: Specialty ([place]) [phone] Jakob [phone] [facility] [phone] David [phone] Bed[facility] ([facility]) [phone] documented in this encounterDayton VA Medical Center04-25-2024 History of Present illness Narrative* Melody Reyez - 03/24/2024 4:12 PM EDT [facility]REACH ADVANCED: Call Information: Date and Time of Contact: 03/24/2024 4:14 PM Method of Contact: By Phone Contact Type: Prescriptions Contactor: [facility] OP Contactee: Patient Contact Outcome: Left message Shipping/Pickup: Medication Name: Prograf 0.2mg pack Contact Info: Specialty ([place]) [phone] [facility] [phone] [facility] [phone] David [phone] Bed[facility]) [phone] * Starla Edwards - 03/24/2024 4:12 PM EDT [facility] OUTREACH ADVANCED: Call Information: Date and Time of Contact: 03/28/2024 3:58 PM Method of Contact: By Phone Contact Type: Prescriptions Contactor: [facility] OP Contactee: Patient Contact Outcome: Left message and Call back later Shipping/Pickup: Medication Name: Mycophenolate, prograf Contact Info: Specialty ([place]) [phone] [facility] [phone] [facility] [phone] David [phone] Bed[facility]) [phone] * Gabbi Rajput - 03/24/2024 4:12 PM EDT [facility] OUTREACH ADVANCED: Call Information: Method of Contact: By Phone Contact Type: Prescriptions Contactor: Patient Contactee: [facility] OP Shipping/Pickup: Medicare B Refill?: No Medication Name: Mycopheolate 360mg and Prograf Delivery Method: Ship Delivery Location: Home Signature Required: No Receive/Pickup Date: 04/04/2024 Shipping Address: [address] [place] [address] Contact Info: Specialty ([place]) [phone] [facility] [phone] [facility] [phone] [facility] [phone] Bedside Delivery ([facility]) [phone] * Meka Munoz [facility] - 03/24/2024 4:12 PM EDT [facility] OP [...] Within normal limits Contact Info: Specialty ([place]) [phone] Jakob [phone] [facility] [phone] David [phone] Bed[facility] Delivery ([facility]) [phone] documented in this encounterDayton VA Medical Center04-03-2024 History of Present illness Narrative* Mckenna Stuart [...] del of broth Contact Info: Specialty ([place]) [phone] [facility] [phone] [facility] [phone] [facility] [phone] Bedside Delivery ([facility]) [phone] * Andressa Gutiérrez - 03/02/2024 8:14 AM EDT [facility] OUTREACH ADVANCED: Call Information: Date and Time of Contact: 03/02/2024 3:49 PM Method of Contact: By Phone Contact Type: Prescriptions Contactor: [facility] OP Contactee: Patient Contact Outcome: Left message and Follow-up Shipping/Pickup: Medication Name: Myco 360mg and Prograf 0.2mg Contact Info: Specialty ([place]) [phone] Jakob [phone] [facility] [phone] David [phone] Bed[facility]) [phone] * Mckenna Stuart - 03/02/2024 8:14 AM EDT [facility] RX OUTREACH ADVANCED: Call Information: Date and Time of Contact: 03/02/2024 4:08 PM Method of Contact: By Phone Contact Type: Prescriptions Contactor: [facility] OP Contactee: Patient Shipping/Pickup: Medicare B Refill?: No Medication Name: Myco 360 / prograf 0.2 Delivery Method: Ship Delivery Location: Home Signature Required: No Receive/Pickup Date: 03/03/2024 Shipping Address: [address] [place] [address] [address] Contact Info: Specialty ([place]) [phone] [facility] [phone] [facility] [phone] [facility] [phone] Bed[facility] ([facility]) [phone] [address] History of Present illness Narrative* Marsha Mckeon [...] at the [facility] on 02/26/2024 for initial evaluation of [...] Left; Surgeon: Jyoti Bryant MD, PhD; Location: [facility] MAIN OR PLACEMENT NEPHROSTOMY CATHETER PERCUTANEOUS W/ IMAGE GUIDANCE 05/17/2022 Surgeon: Enzo Heart DO; Location: [facility] INTERVENTIONAL RADIOLOGY (VIR) LIVER TRANSPLANT, ORTHOTOPIC N/A 04/12/2020 Laterality: N/A; Surgeon: LU Palma; Location: [facility] SAME DAY SURGERY MAIN OR KIDNEY TRANSPLANT W/O ALGAACIQ NEPHRECTOMY N/A 04/12/2020 Laterality: N/A; Surgeon: LU Palma; Location: [facility] SAME DAY SURGERY MAIN OR OTHER SURGICAL [...] qd Antithrombotic: no Statin: no ICD: NA CLINICAL INFORMATICS STRATEGIST: NA CV Test results: ECHOCARDIOGRAM 01/18/2024 (Final) Interpretation Summary Left Ventricle: Chamber size is normal. Increased wall thickness. Concentric hypertrophy. Normal global systolic function. Regional wall motion is normal. Ejection fraction is normal (55 - 60%). Right Ventricle: Chamber size is normal. Systolic function is low normal. No hemodynamically significnat valve disease. Moderate pericardial effusion. There is no evidence of tamponade. [facility] (01/20/24) Hemodynamic Summary: Baseline Hemodynamics Systemic BP [...] will be BP control. Candie Almaguer M.D. macaroni press operator Advanced Heart Failure Program Division of Cardiovascular Medicine [facility] [email or web address] ph [phone] fax [phone]-29-[facility]24 Instructions* Patient Instructions* Marsha Mckeon RN - 02/26/2024 9:30 AM EDT The following instructions were given today: Labs today Follow up with Dr. Almaguer as needed. Your after visit summary (AVS) is viewable in [facility]. Call RN if you have cardiac questions/concerns M-F 8 to 4:30 ; office # [phone], option 6, then option 2. Guidelines for home management: 1. Continue to monitor weight first thing each morning. 2. Report to the CHF CLINIC ([phone]) any significant weight change. Remember that weight [...] to have labs/tests run outside of the [facility] and you do not hear from us1-2 days after they are performed, you must call us to ensure we received the results. Office fax #[phone]. No news does not necessarily mean that your tests are normal, it could mean we did not get the results. For questions/updates: please provide your name with spelling, date of and question or update All calls are prioritized and responses researched, if possible, prior to calls being returned. Call Scheduling for any appointment/procedure verification or changes [phone], option 7 or [facility] at [phone], option 1. documented in this encounterDayton VA Medical Center02-24-2024 Nurse Note* Nursing Notes - Terra Heart [...] to transport home on home oxygen supply. [facility]02-24-[facility] Miscellaneous Notes* Nursing Notes - Terra Heart RN - 01/23/2024 3:49 PM EST Jakob wrap & kerlix removed to E [...] PhD - 01/22/2024 1:34 PM EST George Tray Styles ([id number]) PRE OPERATIVE DIAGNOSIS High output congestive heart failure [I50.83] POST OPERATIVE DIAGNOSIS Post-Op Diagnosis Codes: * High output congestive heart failure [I50.83] PROCEDURE PERFORMED Procedure(s) (LRB): LIGATION ANGIOACCESS AVF (Left) Resection of large aneurysmic vein PRIMARY CLOSURE Yes INTRAOPERATIVE FINDINGS No significant abnormalities SURGEON Surgeons and Role: * Jyoti Bryant MD, PhD - Primary ANESTHESIOLOGIST Anesthesiologist: Celena Tiwari MD; Kehinde Gutierrez MD ENGINEER INTERN: David Jasso APRN-HUGO Power System Operator Assisting: Mini Khan MD SURGICAL STAFF Film Processing Supervisor: Zoila Lawrence RN Relief Film Processing Supervisor: Marimar Saravia RN Relief Scrub: Briseyda [...] patient breathing easily. Report received from neurosurgical physician assistant and report received from anesthesiology. Pt [...] Axillary block. SURGEON(S): Jyoti Bryant MD, PHD BALANCE WHEEL FACER: Mynor Fall MD ESTIMATED BLOOD LOSS: Minimal. [...] MD, PHD Jyoti Bryant MD, PHD ATTENDING SHANNON/[employer] JOB: [id number] DOC: [id number] * Plan of Care - Tati Ahmadi [...] overnight coverage, Jasper Gastelum MD, via pager #[phone] Pt- George Styles. Sarah 1082. TM1. Was wondering if he can have his Melatonin order increased to 6mg. Per pt, he usually takes 8mg at home. -SAMI Duffy #[phone] Tati Charles RN * Plan of Care - Arelis Mera MD - 01/16/2024 7:27 AM EST Internal Medicine Daily Progress Note Patient: George Styles, 1970, [id number] Physician: Arelis Mera MD, PGY3, Pager #[phone], TM1 service Assessment/Plan: George Styles is a [...] home amlodipine 5mg CAD: non-obstructive CAD on [facility] 2018. - continue home aspirin 81mg [...] AM EST Mr. Styles was admitted to [address] [place] [address]. On admission to 0, from outside facility a dual RN initial assessment of skin condition was performed by Izzy Gutierrez RN and Leroy Singleton RN. Skin Assessment: Skin within defined limits:Yes Jose Score: 20 Wound Vision Grain Merchandiser images obtained: No LDA Added: No Based [...] nurses station when available. documented in this encounterDayton VA Medical Center02-24-2024 Nurse Note* Nursing Notes - Terra Heart [...] at 4L of oxygen is also required.) [facility]02-[facility] History of Present illness Narrative* Leonel Harris [...] Harris DO PGY-3 Surgery Resident * Kelvin Smith MD, MBBS - 01/22/2024 3:51 PM EST [...] Daily Torsemide 20 mg Oral Daily Kelvin Smith MD, MBBS podiatric medicine professor Transplant nephrology * Leonel Harris DO - [...] monitor Leonel Harris DO General Surgery Pager [phone] * Girish Salvador RN - 01/22/2024 3:14 PM EST CM went to bedside to talk with patient. Patient states he has home oxygen through [employer]. He uses 2.5 LNC around the clock. Patient states his brother will bring a tank for discharge. Anticipate patient will discharge tomorrow AM. Brother updated. Girish Oro RN, BSN Clinical Business Objects Analyst Please note that I am a float case managers and may not cover the same service every day. Please call the main Case Management office at [phone] for up-to-date coverage. Verified patients identity using date of . Appropriate PPE utilized. * Leonel Harris, - 01/22/2024 6:56 AM EST TRANSPLANT SURGERY [...] Daily Progress Note Patient: George Styles, 1970, [id number] Physician: Yury Ozuna MD, PGY1, Pager #[phone], UN7 service Assessment/Plan: George Styles is a 53 [...] by transplant surgery on 01/22 (NPO at nh, updated type & screen) S/p Liver-Kidney Transplant [...] home amlodipine 5mg CAD: non-obstructive CAD on [facility] 2018. - continue home aspirin 81mg [...] agreed with the Nutrition plan outlinedin the Power Checker s note. DVT prophylaxis with lovenox Diet DIET HEART HEALTHY - 4 GM SODIUM Disposition: home pending clinical improvement and evaluation Code status is Full Code Discussed with team and attending, Kelvin Smith MD, MBBS , on rounds. Signed, Yury [...] US LUE AVF: Associated attestation - Kelvin Smith MD, MBBS - 01/21/2024 4:20 PM EST Patient seen and examined at bedside today during multidisciplinary rounds with medicine residents and pharmacy, charts reviewed, laboratory parameters reviewed. Agree with plan of care as mentioned in resident note. Kelvin Smith MD, MBBS podiatric medicine professor Transplant nephrology * Kelvin Smith MD, MBBS - 01/20/2024 3:44 PM EST [...] Torsemide 20 mg Oral BID AC Kelvin Smith MD, MBBS podiatric medicine professor Transplant nephrology * Yury Ozuna MD - 01/20/2024 9:31 AM EST Images from the original note were not included. Internal Medicine Daily Progress Note Patient: George Styles, 1970, [id number] Physician: Yury Ozuna MD, PGY1, Pager #[phone], TM1 service Assessment/Plan: George Styles is a [...] home amlodipine 5mg CAD: non-obstructive CAD on [facility] 2018. - continue home aspirin 81mg [...] agreed with the Nutrition plan outlinedin the Power Checker s note. DVT prophylaxis with lovenox Diet DIET HEART HEALTHY - 4 GM SODIUM Disposition: home pending clinical improvement and evaluation Code status is Full Code Discussed with team and attending, Kelvin Smith MD, MBBS , on rounds. Signed, Yury [...] Doppler US AMIE AVF: Associated attestation - Sarah, Kelvin Ortiz [...] Provider: Zuly Bruno NP Pharmacy: [facility] Other Comments: Patient reported his Last Home Dose of mycophenolate and tacrolimus was on 01/15/24 at 0700. Medications that need removed from Outside Medication Reconciliation list: Please remove all medications. Please feel free to contact me with any further questions. Name: Heidy Chatman Phone #: [phone] Date/Time: 01/19/2024 12:08 PM Time Spent: 15 minutes Associated attestation - Fidelina Alarcon RPH - 01/19/2024 12:41 PM EST Department of Pharmacy Admission Medication Reconciliation Note Patient: George Styles Room/Bed: 1082/A I have reviewed the home medication list with the Chemical Milling Processor. The home medication list status is: complete. All changes to the home medication list have been updated in [facility]. Updated PORTFOLIO ANALYST Med List: Prior to Admission Medications Prescriptions [...] me with any further questions. Name: Fidelina Davisamanda [facility] Phone #: [phone] Date/Time: 01/19/2024 12:41 PM * Yury Ozuna MD - 01/19/2024 11:10 AM EST Internal Medicine Daily Progress Note Patient: George Styles, 1970, [id number] Physician: Yury Ozuna MD, PGY1, Pager #[phone], AA6 service Assessment/Plan: Acute Hypoxic Respiratory Insufficiency GARCIA, [...] immunosuppression: tacrolimus 0.2 mg every Thursday, , Saturday and mycophenolate 360mg BID Tac trough pending [...] home amlodipine 5mg CAD: non-obstructive CAD on [facility] 2018. - continue home aspirin 81mg [...] agreed with the Nutrition plan outlinedin the Power Checker s note. DVT prophylaxis with lovenox Diet DIET HEART HEALTHY - 4 GM SODIUM Disposition: home pending clinical improvement and evaluation Code status is Full Code Discussed with team and attending, Kelvin Smith MD, MBBS , on rounds. Signed, Yury [...] 16/1.13/106/24/86 (01/19 616) Associated attestation - Kelvin Smith MD, MBAPOORVA - 01/19/2024 12:31 PM EST [...] Tamsulosin HCl 0.4 mg Oral Daily Kelvin Smith MD, MBBS podiatric medicine professor Transplant nephrology * Yury Ozuna MD - 01/18/2024 2:53 PM EST Internal Medicine Daily Progress Note Patient: George Styles, 1970, [id number] Physician: Yury Ozuna MD, PGY1, Pager #[phone], TM1 service Assessment/Plan: Updates: - continued diuresis [...] home amlodipine 5mg CAD: non-obstructive CAD on [facility] 2018. - continue home aspirin 81mg [...] agreed with the Nutrition plan outlinedin the Power Checker s note. DVT prophylaxis with lovenox Diet DIET HEART HEALTHY - 4 GM SODIUM Disposition: home pending clinical improvement and evaluation Code status is Full Code Discussed with team and attending, Kelvin Smith MD, MBBS , on rounds. Signed, Yury [...] 30.0/14.5/1.1 (01/18 315) Associated attestation - Kelvin Smith MD, LU - 01/18/2024 4:20 PM EST Patient seen and examined at bedside today during multidisciplinary rounds with medicine residents and pharmacy, charts reviewed, laboratory parameters reviewed. Agree with plan of care as mentioned in resident note. Kelvin Smith MD, MBAPOORVA podiatric medicine professor Transplant nephrology * Angie Singh [facility] - 01/18/2024 1:42 PM EST Pt known to staff nurse midwife from previous admissions. Provided emotional and spiritual support. Patient shared about: family support, medical course Lumber Tallier provided: - Supportive presence - Active listening - Validation of feelings/emotions Patient encouraged to request a staff nurse midwife as needed. Chaplains are available in-house 24 hours a day and 7 days a week. For urgent matters in [facility], please page [phone]. If the request is not urgent, please enter a consult. Consults are responded to within 24 hours. Senior Staff Lumber Tallier Angie Singh Mdiv, [facility] Kirk [phone] [email or web address] On-call TYLRO: collections attorney David: 22/06 Pager ,[facility], and [place] [phone] David Pager [phone] 01/18/24 1349 Clinical Encounter Type Visited With Patient Visit Type Introduction Pastoral Time Spent 15 min Referral Other (See Comment) (rounding) Spiritual Assessment Emotional Observation Coping well;Anxiety Hope Observation Specific hope focus Support Observation By Family Interventions Provided Active listening;Supportive presence Facilitated Verbalization of feelings;Identifying support system;Identifying Sources of spiritual well-being Explored Expectations;Treatment decisions High School Teacher Education High School Teacher Service Available Yes Educated Patient Outcomes Patient [...] interaction. Name: Fidelina Alarcon RPH Phone #: [phone] Date/Time: 01/18/2024 9:56 AM * Kasandra Hurt [...] Yes Name and Contact information: Gian Styles ([phone]) Would you like to add additional adult [...] oxygen?: Yes Oxygen Provider and Contact : Sensobi Liter-Flow?: 20/01-3 Order for oxygen use?: unknown at this [...] patient on Anticoagulation? : No [id number] [place] [address] - [address] [facility] [address] [address] [address] Plate Cleaner Does the patient or customer retention representative express financial concerns? : No Employed?: [...] 1. Identified self and role as Business Objects Analyst. 2. Confirmed and updated demographics and treatment team. 3. Business Objects Analyst will continue to follow with medical team for any other additional discharge needs. Kasandra DON RN *Please note I am float and work Thursday and Thursday every other week. Please call [phone] for assist in my absence. * Yury Ozuna MD - 01/17/2024 1:57 PM EST Internal Medicine Daily Progress Note Patient: George Styles, 1970, [id number] Physician: Yury Ozuna MD, PGY1, Pager #[phone], TM1 service Assessment/Plan: Updates: - continue diuresis [...] home amlodipine 5mg CAD: non-obstructive CAD on [facility] 2018. - continue home aspirin 81mg [...] ordered 2D echo. Reese Sage MD, MADISONN Inventory Auditor of Clinical Medicine [facility] documented in [facility] Plan of care note* Plan of Care [...] Symptoms (Acute Pain): verbalization of pain descriptors [facility]02-23-[facility] Hospital Discharge instructions* Discharge Instructions* Arelis [...] your doctor for further instructions. Please call [phone], Option 1 or [phone] to schedule your appointment with the Heart Failure Clinic. * Discharge Instr - Wound Care* Arelis Mera MD - 01/22/2024 3:08 PM EST You can change your dressing 48 hours from the procedure * Attachments The following attachments cannot be sent through Care Everywhere. * Heart Failure: Avoiding Triggers (Cook Islander) * Heart Failure: Limiting Sodium ([place] Islander) * Pain and Pain Control ([facility]) ([place] Islander) documented in this encounterOSTogus [facility] Surgery Postoperative evaluation and management note* Brief Op Note - Jyoti Bryant MD, PhD - 01/22/2024 1:34 PM EST George Styles ([id number]) PRE OPERATIVE DIAGNOSIS High output congestive heart failure [I50.83] POST OPERATIVE DIAGNOSIS Post-Op Diagnosis Codes: * High output congestive heart failure [I50.83] PROCEDURE PERFORMED Procedure(s) (LRB): LIGATION ANGIOACCESS AVF (Left) Resection of large aneurysmic vein PRIMARY CLOSURE Yes INTRAOPERATIVE FINDINGS No significant abnormalities SURGEON Surgeons and Role: * Jyoti Bryant MD, PhD - Primary ANESTHESIOLOGIST Anesthesiologist: Celena Tiwari MD; Kehinde Gutierrez MD ENGINEER INTERN: David Jasso APRN-ENGINEER INTERN Power System Operator Assisting: Mini Khan MD SURGICAL STAFF Film Processing Supervisor: Zoila Lawrence RN Relief Film Processing Supervisor: Marimar Saravia RN Relief Scrub: Briseyda Self Scrub Person: Cinda Mai RN Resident Assisting: Leonel Harris DO Fellow: Miki Mcgowan MD, MBBS COMPLICATIONS None ESTIMATED BLOOD LOSS Minimal SPECIMENS No specimen sent * No specimens in log * Jyoti Bryant MD, PhD January 22, 2024 1:[address] [facility] Work Phone: 1(199) 393-787702-23-2024 Nurse Note* Nursing Notes - Justin Almendarez RN - 01/22/2024 1:24 PM EST Arrived to PACU assisted by anesthesiology. Connected to monitors. Turned side to side, OR linens removed, repositioned. Airway patent, patient breathing easily. Report received from neurosurgical physician assistant and report received from anesthesiology. Pt arrived awake. VSS. Sats slightly low. Pulm rehab used. Sats currently 3lpm @ 93%. Pt states he uses CPAP nocturnally. A&Ox4. Nerve block left arm, elevated. [facility]02[facility] Surgery Postoperative evaluation and management note* Op [...] Axillary block. SURGEON(S): Jyoti Bryant MD, PHD BALANCE WHEEL FACER: Mynor Fall MD ESTIMATED BLOOD LOSS: Minimal. [...] Jyoti Bryant MD, PHD ATTENDING AR/MedFlorencio JOB: [id number] DOC: [id number] [facility]02-23-2024 Plan of care note* Plan of Care [...] Care Reviewed With: patient [facility]02-21-2024 Consult note* Starla Morris MD - 01/20/2024 2:15 PM ESTAssociated Order(s): IP CONSULT TO SURGERY - TRANSPLANT (RENAL) Images from the original note were not included. TRANSPLANT SURGERY CONSULT NOTE: Consult: 01/20/2024, 4:03 PM Briquette Machine Operator Helper: Starla Morris MD Reason for Consult: Requesting Dr Carson Bryant for AVF revision/closure given new onset high output heart failure George Styles is a 53 y.o. male CURRENT HOSPITALIZATION LOS: Admit Date: 01/16/2024 [facility] Hospital LOS: 4 days George Styles [...] DAY SURGERY MAIN OR KIDNEY TRANSPLANT W/O ALGAACIQ NEPHRECTOMY N/A 04/12/2020 Laterality: N/A; Surgeon: LU Palma; Location: [facility] SAME DAY SURGERY MAIN OR OTHER SURGICAL [...] seen and staffed with Dr. Mcgowan fellow admissions coordinator Thank you, Starla Morris MD Associated attestation - Jyoti Bryant MD, PhD - 01/22/2024 10:54 AM EST I. Jyoti Bryant MD, PhD, have independently seen and examined the patient, reviewed the labs, discussed the patient with the fellow/resident and agree with the note. [facility] Work Phone: 1(270) 684-539102-21-2024 Consult note* Starla Morris MD - 01/20/2024 2:15 PM ESTAssociated Order(s): IP CONSULT TO SURGERY - TRANSPLANT (RENAL) Images from the original note were not included. TRANSPLANT SURGERY CONSULT NOTE: Consult: 01/20/2024, 4:03 PM Briquette Machine Operator Helper: Starla Morris MD Reason for Consult: Requesting Dr Carson Bryant for AVF revision/closure given new onset high output heart failure George Styles is a 53 y.o. male CURRENT HOSPITALIZATION LOS: Admit Date: 01/16/2024 [facility] Hospital LOS: 4 days George Styles [...] GUIDANCE 05/17/2022 Surgeon: Enzo Heart DO; Location: [facility] INTERVENTIONAL RADIOLOGY (VIR) LIVER TRANSPLANT, ORTHOTOPIC N/A 04/12/2020 Laterality: N/A; Surgeon: LU Palma; [facility] DAY [facility]GERY MAIN OR KIDNEY TRANSPLANT W/O ALGAACIQ NEPHRECTOMY N/A 04/12/2020 Laterality: N/A; Surgeon: LU Palma; Location: [facility] SAME DAY SURGERY MAIN OR OTHER SURGICAL [...] seen and staffed with Dr. Mcgowan fellow admissions coordinator Thank you, Starla Morris MD Associated [...] Fellow HEPATOLOGY INPATIENT CONSULT Referring Provider: Kelvin Smith MD, MBBS Admit Date: 01/16/2024 Reason for [...] DAY SURGERY MAIN OR KIDNEY TRANSPLANT W/O ALGAACIQ NEPHRECTOMY N/A 04/12/2020 Laterality: N/A; Surgeon: LU Palma; Location: [facility] SAME DAY SURGERY MAIN OR OTHER SURGICAL [...] (order for outpatient) Please SecureChat or Call ([phone]) for any questions. Await attending attestation for final recommendations. Hank Noel MD Division of Gastroenterology, Hepatology, and Nutrition Clinical Fellow, PGY-5 Pager: [phone] For urgent/stat calls or consults 5pm to 7am, please page the on-call GI fellow on QGenda. [facility]--> Internal Medicine--> Gastroenterology, Hepatology, & Nutrition--> 1st Call Janae Hatfield For urgent/stat calls or consults 7am to 5pm during the weekend, please page the on-call GI fellow on QGenda. [facility]--> Internal Medicine--> Gastroenterology, Hepatology, & Nutrition--> All Hep & East Wknd Cons Fel Day For follow up questions regarding this patient 7am to 5pm during the weekday, contact the Hepatology consults fellow or CARLOS A on QGenda. [facility]--> Internal Medicine--> Gastroenterology, Hepatology, & Nutrition--> All [...] Michael Estrada MD, MSc documented in this encounterOSTogus [facility]02-20-2024 Nurse Note* Nursing Notes - Paulette [...] rest, 95-96% when talking/moving. Paulette Cordon RN [facility]02-20-2024 Nurse Note* Nursing Notes - Tati Charles RN - 01/19/2024 12:10 AM EST Paged overnight coverage, Jasper Gastelum MD, via pager #[phone] Pt- George Styles. Sarah 1082. TM1. Was wondering if he can have his Melatonin order increased to 6mg. Per pt, he usually takes 8mg at home. -SAMI Duffy #[phone] Tati Charles RN [facility]02-19-2024 Consult note* Hank Noel MD - 01/18/2024 1:24 PM ESTAssociated Order(s): IP CONSULT TO HEPATOBILIARY N [facility] Hepatology Consult WebExchange --> IM Consult Serv [facility] --> OS Main Hepatology consult service Fellow HEPATOLOGY INPATIENT CONSULT Referring Provider: Kelvin Smith MD, MBBS Admit Date: 01/16/2024 Reason for [...] DAY SURGERY MAIN OR KIDNEY TRANSPLANT W/O ALGAACIQ NEPHRECTOMY N/A 04/12/2020 Laterality: N/A; Surgeon: LU Palma; Location: [facility] SAME DAY SURGERY MAIN OR OTHER SURGICAL [...] (order for outpatient) Please SecureChat or Call ([phone]) for any questions. Await attending attestation for final recommendations. Hank Noel MD Division of Gastroenterology, Hepatology, and Nutrition Clinical Fellow, PGY-5 Pager: [phone] For urgent/stat calls or consults 5pm to 7am, please page the on-call GI fellow on QGenda. [facility]--> Internal Medicine--> Gastroenterology, Hepatology, & Nutrition--> 1st Call Fel Alysia For urgent/stat calls or consults 7am to 5pm during the weekend, please page the on-call GI fellow on QGenda. [facility]--> Internal Medicine--> Gastroenterology, Hepatology, & Nutrition--> All Hep & East Wknd Cons Fel Day For follow up questions regarding this patient 7am to 5pm during the weekday, contact the Hepatology consults fellow or CARLOS A on QGenda. [facility]--> Internal Medicine--> Gastroenterology, Hepatology, & Nutrition--> All [...] (order for outpatient) Michael Estrada MD, MSc [facility] Work Phone: 1(328) 546-451802-17-2024 Plan of care note* Plan of Care - Arelis Mera MD - 01/16/2024 7:27 AM EST Internal Medicine Daily Progress Note Patient: George Styles, 1970, [id number] Physician: Arelis Mera MD, PGY3, Pager #[phone], TM1 service Assessment/Plan: George Styles is a [...] home amlodipine 5mg CAD: non-obstructive CAD on [facility] 2018. - continue home aspirin 81mg [...] MD, on rounds. Signed, Arelis Mera MD [facility]02-17-2024 Nurse Note* Nursing Notes - Izzy Gutierrez RN - 01/16/2024 1:41 AM EST Mr. Styles was admitted to [address] [place] [address]. On admission to R10, from outside facility a dual RN initial assessment of skin condition was performed by Izzy Gutierrez RN and Leroy Singleton RN. Skin Assessment: Skin within defined limits:Yes Jose Score: 20 Wound Vision Grain Merchandiser images obtained: No LDA Added: No Based [...] room closest to nurses station when available. [facility]02[facility] History and physical note* Timothy Joseph MD - 01/16/2024 1:13 AM EST Images from the original note were not included. Internal Medicine Admission History & Physical Patient: George Styles, 1970, [id number] Physician: Timothy Joseph MD, PGY1, Pager #[phone], TM 1 service Date of face to [...] DAY SURGERY MAIN OR KIDNEY TRANSPLANT W/O ALGAACIQ NEPHRECTOMY N/A 04/12/2020 Laterality: N/A; Surgeon: LU [...] itraconazole Fax results to: Dr. White - [phone] Transplant Neph - [phone] Gabapentin 400 MG capsule Sig: Take 1 [...] erythema: Skin: No jaundice or rash 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 [...] home amlodipine 5mg CAD: non-obstructive CAD on [facility] 2018. - continue home aspirin 81mg daily Gout: continue home allopurinol 200mg daily BPH: continue home flomax 0.4mg daily Complexity. Obesity Body mass index is 32.8 kg/m . - Follow with PCP for dietary and lifestyle modifications. Any conditions listed below are present on admission unless otherwise specified. . DVT prophylaxis with lovenox Disposition: admitted to [facility] Code status is Full Staffed [...] Pierson, Luisa Steven, Renee Freed, Daisha Max Regional Maintenance Manager: José Miguel Garnica All Txt: 04/13/2020 [...] results found for: CYCLOSPORIN , CYCLOSPORIN2 , [id number] , CYCLORAND No results found for: SIROLIMUS [...] request in chart. Reese Sage MD Pager [phone] [facility]02-17-2024 History and physical note* Timothy Joseph MD - 01/16/2024 1:13 AM EST Images from the original note were not included. Internal Medicine Admission History & Physical Patient: George Styles, 1970, [id number] Physician: Timothy Joseph MD, PGY1, Pager #[phone], TM 1 service Date of face to [...] 04/12/2020 Laterality: N/A; Surgeon: LU Palma; Location: [facility] SAME DAY SURGERY MAIN OR KIDNEY TRANSPLANT W/O ALGAACIQ NEPHRECTOMY N/A 04/12/2020 Laterality: N/A; Surgeon: LU Palma; Location: [facility] SAME DAY SURGERY MAIN OR OTHER SURGICAL [...] itraconazole Fax results to: Dr. White - [phone] Transplant Neph - [phone] Gabapentin 400 MG capsule Sig: Take 1 [...] erythema: Skin: No jaundice or rash 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 [...] home amlodipine 5mg CAD: non-obstructive CAD on [facility] 2018. - continue home aspirin 81mg daily Gout: continue home allopurinol 200mg daily BPH: continue home flomax 0.4mg daily Complexity. Obesity Body mass index is 32.8 kg/m . - Follow with PCP for dietary and lifestyle modifications. Any conditions listed below are present on admission unless otherwise specified. . DVT prophylaxis with lovenox Disposition: admitted to [facility] Code status is Full Staffed with Timothy uF MD Internal Medicine PGY1 Attending Physician Addendum [...] Pierson, Luisa Steven, Renee Freed, Daisha Max Regional Maintenance Manager: José Miguel Garnica All Txt: 04/13/2020 [...] results found for: CYCLOSPORIN , CYCLOSPORIN2 , [id number] , CYCLORAND No results found for: SIROLIMUS [...] request in chart. Reese Sage MD Pager [phone] documented in this encounterDayton [facility] Medical Center02-13-2024 History of Present illness Narrative* Vladislav [...] Prograf 0.2 MG Contact Info: Specialty (Yanci) [phone] Jakob [phone] [facility] [phone] David [phone] Bedside Delivery ([facility]) [phone] * Anne Choudhury - 01/12/2024 3:09 PM EST [facility] OP RX OUTREACH ADVANCED: Call Information: Date and Time of Contact: 01/25/2024 10:23 AM Method of Contact: By Phone Contact Type: Prescriptions Contactor: [facility] OP Contactee: Patient Contact Outcome: Left message (prograf myco) Contact Info: Specialty (Yanci) [phone] [facility] [phone] [facility] [phone] David [phone] Bedside Delivery ([facility]) [phone] documented in this encounterDayton VA Medical Center02-13-2024 History of Present illness Narrative* Vladislav [...] Prograf 0.2 MG Contact Info: Specialty (Yanci) [phone] [facility] [phone] [facility] [phone] David [phone] Bedside Delivery ([facility]) [phone] * Anne Choudhury - 01/12/2024 3:09 PM EST [facility] OP RX OUTREACH ADVANCED: Call Information: Date and Time of Contact: 01/25/2024 10:23 AM Method of Contact: By Phone Contact Type: Prescriptions Contactor: [facility] OP Contactee: Patient Contact Outcome: Left message (prograf myco) Contact Info: Specialty (Yanci) [phone] [facility] [phone] [facility] [phone] David [phone] Bedside Delivery ([facility]) [phone] * Anne Choudhury - 01/12/2024 3:09 PM EST [facility] OP RX OUTREACH ADVANCED: Call Information: Date and Time of Contact: 01/27/2024 10:19 AM Method of Contact: By Phone Contact Type: Prescriptions Contactor: [facility] OP Contactee: Patient Contact Outcome: Left message (myco prograf) Contact Info: Specialty (Yanci) [phone] [facility] [phone] [facility] [phone] [facility] [phone] Bedside Delivery ([facility]) [phone] documented in this encounterDayton VA Medical Center02-13-2024 History of Present illness Narrative* Vladislav [...] Prograf 0.2 MG Contact Info: Specialty (Yanci) [phone] [facility] [phone] [facility] [phone] David [phone] Bedside Delivery ([facility]) [phone] * Anne Choudhury - 01/12/2024 3:09 PM EST [facility] OP RX OUTREACH ADVANCED: Call Information: Date and Time of Contact: 01/25/2024 10:23 AM Method of Contact: By Phone Contact Type: Prescriptions Contactor: [facility] OP Contactee: Patient Contact Outcome: Left message (prograf myco) Contact Info: Specialty ([place]) [phone] [place] [facility] [phone] [facility] [phone] David [phone] [facility] ([facility]) [phone] * Anne Choudhury - 01/12/2024 3:09 PM EST [facility] RX OUTREACH ADVANCED: Call Information: Date and Time of Contact: 01/27/2024 10:19 AM Method of Contact: By Phone Contact Type: Prescriptions Contactor: [facility] OP Contactee: Patient Contact Outcome: Left message (myco prograf) Contact Info: Specialty ([place]) [phone] [facility] [phone] [facility] [phone] David [phone] Bedside Delivery ([facility]) [phone] * Andressa Gutiérrez - 01/12/2024 3:09 PM EST [facility] RX OUTREACH ADVANCED: Call Information: Date and Time of Contact: 02/01/2024 3:22 PM Contact Type: Prescriptions Contactor: [facility] OP Contactee: Patient Contact Outcome: Left message Shipping/Pickup: Medication Name: Mycophenolate 360mg and Prograf 0.2mg Pack Contact Info: Specialty ([place]) [phone] [facility] [phone] [facility] [phone] David [phone] Bedside Delivery ([facility]) [phone] documented in [facility] History of Present illness Narrative* Zuly Bruno NP - 01/06/2024 9:47 AM ESTAssociated Problem(s): Shortness of breath Check ECHO * Zuly Bruno NP - 01/06/2024 9:46 AM ESTAssociated Problem(s): Hypertension (CMS/HCC) No change in meds Check echo * uZly Bruno NP - 01/06/2024 9:46 AM ESTAssociated [...] The neurologist wanted to send him to [facility] neurology but it is out of [...] pt to see neurologist in [facility] Immunocompromised ([facility]) Hypertension ([facility]) No change in meds Check echo Relevant Orders Echocardiogram 2D complete Bilateral lower extremity edema Relevant Orders Echocardiogram 2D complete Shortness of breath Check ECHO Relevant Orders Echocardiogram 2D complete Other Visit Diagnoses 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 [facility] Work Phone: 1(875) 793-123011-07-2023 History of Present illness Narrative* Vladislav Dali - 10/06/2023 9:30 AM EST [facility] OP [...] Prograf 0.2 MG Contact Info: Specialty ([place]) [phone] [facility] [phone] [facility] [phone] David [phone] Bedside Delivery ([facility]) [phone] * Gabbi Rajput - 10/06/2023 9:30 AM EST [facility] RX OUTREACH ADVANCED: Call Information: Date and Time of Contact: 10/23/2023 2:00 PM Method of Contact: By Phone Contact Type: Prescriptions Contactor: [facility] Contactee: Patient Contact Outcome: Left message and Call back later Shipping/Pickup: Medication Name: Mycophenolate 360mg and Prograf 0.2mg Contact Info: Specialty ([place]) [phone] Jakob [phone] [facility] [phone] David [phone] Bedside Delivery ([facility]) [phone] [facility] Miscellaneous Notes* Nursing Notes - Cheyanne Mcdonough [...] pt will bead picker his oxygen from [employer], 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 This RN [...] gait. Nothing further at this time. Aixa Alejnadra RN * Nursing Notes - Aixa Holden RN - 09/08/2023 11:46 AM EDT Patient seen ambulating in the velazquez with [employer]. Patient was mildly short of breath on [...] Critical Care Medicine * Code Documentation - Romnaa Crow RN - 09/04/2023 9:58 AM EDT [...] 3:30 AM EDT Messaged Mainor Loomis, via [employer] secure chat, Temp 100.8. His tylenol order is not listed for temps though. Tati Chalres RN * Nursing Notes - Zuly Shepard [...] short period of time. 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 Episode [...] 7:30 PM EDT Message [employer] L[place]is, via [employer] secure chat, Good evening, just an [...] short period of time. 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 This [...] 8:[address] Loera here also (toy designer) * Nursing Notes - Mary Case RN [...] 08/29/2023 10:49 PM EDT Sent a secure [employer] chat to Rosi LUZ concerning patient's temp [...] 104) Anxiety/Fear Reduction: making progress toward outcome * [...] PM EDT Mr. Styles was admitted to [address] [place] [address]. On admission to [facility], from home a [...] station when available. documented in this encounterU [facility] History of Present illness Narrative* BENJY Syed - 09/11/2023 2:30 PM EDT Provided follow-up emotional and spiritual support. Patient shared about rosemary of discharge and looking forward to seeing family Lumber Tallier provided: - Supportive presence - Active listening - Validation of feelings/emotions Patient encouraged to request a staff nurse midwife as needed. Chaplains are available in-house 24 hours a day and 7 days a week. For urgent matters in [facility], please page [phone]. If the request is not urgent, please enter a consult. Consults are responded to within 24 hours. Senior Staff Lumber Tallier Angie Singh Mdiv, [facility] Kirk [phone] [email or web address] 22/06 On-call Newell: [phone] 22/06 Pager ,[facility], and Brock Debbie David Pager [phone] 09/11/23 1690 Clinical Encounter Type Visited With Patient Visit Type Follow-up Pastoral Time Spent 15 min Referral Other (See Comment) (rounding) Spiritual Assessment Spiritual Observation Spirituality helpful Emotional Observation Coping well Hope Observation Specific hope focus Support Observation By Family Interventions Provided Active listening;Supportive presence Facilitated Verbalization of feelings Explored Expectations High School Teacher Education High School Teacher Service Available Yes Educated Patient Plan of [...] patient on 09/11/2023. Dimitrios Gurrola RPh,PharmD Specialty ([place]) [phone] [facility] [phone] [facility] Bedside Delivery [phone] [facility] [phone] [facility] Bedside Delivery [phone] David [phone] David Bedside Delivery [phone] [place] [phone] [place] [phone] * Evan Kelly MD - 09/10/2023 4:09 PM EDT Internal Medicine Daily Progress Note Patient: George Styles, 1970, [id number] Physician: Evan Kelly MD, PGY-1, TM1 service [...] (A) 08/29/2023 BACTERIAURIN ABSENT 08/29/2023 Blood cultures 9/29 NGTD Histo/Blasto positive. 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 - continue home aspirin 81mg [...] 5.05 (H) 11/19/2018 Reese Sage MD, MADISONN Inventory Auditor of Clinical Medicine [facility] * Lora Lawrence [...] [employer]erred [employer] [address] [address] [phone] Internal Comment last updated by Lora Lawrence RN 09/10/2023 1334 Correct contact information: [facility] [address] [place] [address] [place] [address] malter operator- you do not need to call at discharge, I already notified the company. Addendum [phone] [facility] notified this CM they are out of patient's insurance area and will not be able to service this patient at time of discharge. Provider notified. Addendum [phone] Dr Kelly called [facility] spoke to Lynn and she said they are willing to accept patient if the patient would drive to the [place] office and bead picker the supplies. Patient [...] Colón RN, MSN, CCM, CMCN Clinical Business Objects Analyst- [facility] Transplant #[phone] * Matt Kramer [facility],PharmD - 09/10/2023 11:32 AM EDT Department of [...] dose adjustment Name: Matt Kramer RPh,PharmD Phone: [phone] Date/Time: 09/10/2023 11:33 AM * Lora Lawrence RN - 09/10/2023 11:08 AM EDT This CM sent referral via [employer] for O2 concentrator to 4 agencies Start date today Timer [facility] [employer] Addendum 1332 One accepting company reserved in [facility] [address] [place] [address] Lora Colón RN, MSN, CCM, CMCN Clinical Business Objects Analyst- [facility] Transplant #[phone] * RHIANNON Birmingham - 09/09/2023 3:18 PM EDT NUTRITION FOLLOW-UP Nutrition Plan of Care: 1. Continue current diet order. 2. No oral supplements warranted at this time. 3. Monitor for significant weight changes. Monitor GI, skin integrity. 4. Monitor and encourage po intakes with goal of average po being 75-100%. 5. radio electronics technician to follow. Met with patient today [...] time. Will continue to monitor. RHIANNON BirminghamR Pager:[phone] * Evan White DO - 09/09/2023 12:28 PM EDT Transplant [...] sign off. Please Epic message or page [phone] with questions. 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 - continue home aspirin 81mg daily, holding atorvastatin 20mg daily Gout: continue home allopurinol 200mg daily BPH: continue home flomax 0.4mg daily DVT PPX: SQH Code Status: Full Code Disposition: Pending clinical course. Anticipate eventual discharge home. Discussed with team and attending, Reese Sage MD, on rounds. Signed, Evan Kelly MD * Evan White DO - 09/08/2023 3:12 PM EDT Transplant Infectious [...] to follow. Please Epic message or page [phone] with questions. 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 - continue home aspirin 81mg [...] 5.05 (H) 11/19/2018 Reese Sage MD, SERA Inventory Auditor of Clinical Medicine [facility] * Ann [...] to follow. Please Epic message or page [phone] with questions. Ann Marie Haskins MD PGY-4, [...] he continues to improve. Please message via [employer] secure chat or page with any questions or concerns. Evan White DO Inventory Auditor Division of Infectious Disease * Evan White [...] to follow. Please Epic message or page [phone] with questions. Evan White DO Transplant Infectious Diseases * Crow Diaz MD - 09/06/2023 1:02 PM EDT Images from the original note were not included. Pulmonary/Critical Care Medicine Daily Progress Note Reason for Consultation: bronch for infectious workup Requesting Physician: Dr. Sage CURRENT HOSPITALIZATION: [facility]: [facility] 9 days Impression [...] and interpreted reviewed the radiographic data in [employer]. 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 - continue home aspirin 81mg [...] 5.05 (H) 11/19/2018 Reese Sage MD, FASN Inventory Auditor of Clinical Medicine [facility] * Crow Diaz MD - 09/05/2023 4:33 PM EDT Images from the original note were not included. Pulmonary/Critical Care Medicine Daily Progress Note Reason for Consultation: bronch for infectious workup Requesting Physician: Dr. Sage CURRENT HOSPITALIZATION: Admit Date: 08/28/2023 [facility] LOS: 8 days Impression 1. [...] and interpreted reviewed the radiographic data in [employer]. * Fredi Mcfarlane OT - 09/05/2023 2:50 [...] Assessment: Transfer Assessment: Sit to Stand Transfer [place] Level: Sit->Stand: independent Skilled Intervention/Details: Sit->Stand: x1 from EOB, x1 from toilet Stand to Sit Transfer [place] Level: Stand->Sit: independent Skilled Intervention/Details: Stand->Sit: x1 to toilet, x1 to EOB Functional Mobility: Functional Mobility [place] Level: Functional Mobility/Gait: independent Ambulation Distance (Feet): [...] Intact Mobility Assessment: Supine to Sit Mobility [place] Level: Supine->Sit: modified independence Bed Features/Set-up: Supine->Sit: Head of bed elevated Sit to Supine Mobility [place] Level: Sit->Supine: not tested Balance: Sitting Balance [...] environment. Transfer Assessment: Sit to Stand Transfer [place] Level: Sit->Stand: independent Skilled Intervention/Details: Sit->Stand: From EOB x 2 without difficulty. Stand to Sit Transfer [place] Level: Stand->Sit: independent Assistive Device: Stand->Sit: armed chair Skilled Rationale: Verbal cues, Positioning Gait/Functional Mobility: Gait Assessment [place] Level: Gait: stand-by assist Assistive Device: Gait: rollator Ambulation Distance (Feet): 400 Gait Deviations Identified: decreased grace, decreased gait speed Gait Skilled Rationale: verbal, upright posture, increase step length, increase foot clearance Skilled Intervention/Details - Gait: Reasonable foot clearnce without loss of balance but endorsingdyspnea as 6-7/10. Stairs: Stairs Assessment [place] Level: Stair Negotiation: not tested Outcome Score(s): [facility] Basic Mobility Inpatient Short Form Turning over in bed: 4 - No Assistance Sitting/standing from chair: 4 - No Assistance Moving from lying on back to sittin - No Assistance Moving to and from bed to chair: 3 - A Little Assistance Walk in hospital room: 3 - A Little Assistance Climbing 3-5 steps with a railin - A Little Assistance [facility] Mobility Raw Score: 21 [facility] Mobility Functional Limitation/Modifier: 28.97% Currently Impaired [...] Daily Progress Note Patient: George Styles, 1970, [id number] Physician: Evan Kelly MD, PGY-1, TM1 service [...] s/p 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 - continue home aspirin 81mg [...] 5.05 (H) 11/19/2018 Reese Sage MD, SERA Inventory Auditor of Clinical Medicine [facility] * Evan White, [...] to follow. Please Epic message or page [phone] with questions. Evan White DO Transplant Infectious Diseases * Evan Kelly MD - 09/04/2023 1:20 PM EDT Images from the original note were not included. 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 Please Epic message or page [phone] with questions. 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 - continue home aspirin 81mg [...] 5.05 (H) 11/19/2018 Reese Sage MD, SERA Inventory Auditor of Clinical Medicine [facility] * Lora Lawrence [...] Colón RN, MSN, CCM, CMCN Clinical Business Objects Analyst- [facility] Transplant #[phone] * BENJY Syed - 09/02/2023 11:17 AM EDT Made introductory visit with patient. Provided emotional and spiritual support. Patient shared about: - Source of Rosemary: Camping/Fishing/Family - Spirituality/Uatsdin Affiliation: raised Catholic - Family Support/history - Experience with illness/hospital course - Hopes for healing/future Lumber Tallier provided: - Supportive presence - Active listening - Validation of feelings/emotions - Pledged prayer Patient encouraged to request a staff nurse midwife as needed. Chaplains are available in-house 24 hours a day and 7 days a week. For urgent matters in [facility], please page [phone]. If the request is not urgent, please enter a consult. Consults are responded to within 24 hours. Senior Staff Lumber Tallierdakota Singh Mdiv, [facility] Newell [phone] [email or web address] 22/06 On-call Newell: [phone] 22/06 Pager ,[facility], and Brock Hernandez Pager [phone] 09/02/23 1118 Clinical Encounter Type Visited With Patient Visit Type Introduction Pastoral Time Spent 15 min Referral Other (See Comment) (rounding) Spiritual Assessment Spiritual Observation Spirituality helpful Emotional Observation Coping well Hope Observation Specific hope focus Support Observation By Family Interventions Provided Active listening;Supportive presence Facilitated Verbalization of feelings Explored Expectations High School Teacher Education High School Teacher Service Available Yes Educated Patient Outcomes Patient Outcomes Reduced distress Plan of Care Continue Visiting PRN * RHIANNON Birmingham - 09/02/2023 8:51 AM EDT NUTRITION RISK SCREENING NOTE Nutrition Plan of Care: 1. Continue current diet order. 2. No oral supplements warranted at this time. 3. Monitor for significant weight changes. Monitor GI and skin integrity. 4. Monitor and encourage po intakes with goal of average po being 100%. 5. radio electronics technician to follow. George Styles is a 53 y.o. 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 His post- transplant course was noteworthy for nephrostomy tube (05/17/2022-09/10/2022) due to concern for ureteral stone. He presents as a direct admission for fever, cough, for infectious workup. Pt unavailable and information obtained via chart review Galvanizing Pot Runner Screening Pt's appetite is good. Pt with [...] with meds Food Allergies reviewed:Shellfish Cultural or Uatsdin Restrictions/Preferences: None GI: Last Bowel Movement: 09/01/23 [...] time. Will continue to monitor. 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 - continue home aspirin 81mg [...] as outlined above. Reese Sage MD Pager [phone] * Heidy Chatman - 09/01/2023 2:00 PM [...] Provider: Zuly Bruno NP Pharmacy: [facility] Other Comments: Patient reported his Last Home Dose of mycophenolate & tacrolimus was on 08/28/23 at 0900. Patient reported he was taking Bactrim and benzonatate for fevers and a cough he was having. Please feel free to contact me with any further questions. Name: Heidy Chatman Phone #: [phone] Date/Time: 09/01/2023 2:01 PM Time Spent: 15 minutes Associated attestation - Matt Kramer RPh,PharmD - 09/01/2023 2:28 PM EDT Department of Pharmacy Admission Medication Reconciliation Note Patient: George Styles Room/Bed: 1062/A I have reviewed the home medication list with the Chemical Milling Processor. All changes to the home medication list have been updated in [facility]. Updated PORTFOLIO ANALYST Med List: Prior to Admission Medications Prescriptions [...] questions. Name: Matt Kramer RPh,PharmD Phone #: [phone] Date/Time: 09/01/2023 2:28 PM * Evan White [...] crypto antigen, EBV PCR -follow pending histo, [id number] labs These recommendations were discussed with the primary team. Transplant ID (Team 3) will continue tofollow. Please Epic message or page [phone] with questions. 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 - continue home aspirin 81mg [...] 5.05 (H) 11/19/2018 Reese Sage MD, SERA Inventory Auditor of Clinical Medicine [facility] * Kasandra Hurt RN [...] Yes Name and Contact information: Gian Styles ([phone]) Reviewed and Updated in Demographics? : Yes [...] patient on Anticoagulation? : No [id number] [place] [address] - [address] [id number] Plate Cleaner Does the patient or customer retention representative express financial concerns? : No Employed?: [...] 1. Identified self and role as Business Objects Analyst. 2. Confirmed and updated demographics and treatment team. 3. Business Objects Analyst will continue to follow with medical team/pt for any other additional discharge needs. Kasandra DON RN CM *Please note I am float CM and work Thursday and Thursday every other week. Please call [phone] for assist in my absence. 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 - continue home aspirin 81mg daily, atorvastatin 20mg daily Gout: continue home allopurinol 200mg daily BPH: continue home flomax 0.4mg daily DVT PPX: SQH Code Status: Full Code Disposition: Pending clinical course. Anticipate eventual discharge home. Discussed with team and attending, Reese Sage MD, on rounds. Signed, Laurel Serrano MD, PhD documented in this encounterDay[facility]10[facility] Hospital Discharge instructions* Discharge Instructions* Laurel [...] focus on healthy foods. documented in this encounterDayton [facility] Center10-03-2023 Consult note* Izzy Loera MD - 09/01/2023 12:26 PM EDTAssociated Order(s): IP CONSULT TO PULMONOLOGY Pulmonary Medicine Inpatient Consultation Reason for Consultation: bronch for infectious workup Requesting Physician: Dr. Sage Pulmonary Attending Physician: Dr. Diaz CURRENT HOSPITALIZATION: Admit Date: 08/28/2023 [facility] LOS: 4 days Impression/Recommendations: George [...] short period of time. 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 Other histories as documented in [...] [place] [facility] [place] REVIEW OF SYSTEMS A complete [...] GUIDANCE 05/17/2022 Surgeon: Enzo Heart DO; Location: [facility] ([facility]) LIVER TRANSPLANT, ORTHOTOPIC N/A 04/12/2020 Laterality: N/A; Surgeon: LU Palma; Location: [facility] OR KIDNEY TRANSPLANT W/O ALGAACIQ NEPHRECTOMY N/A 04/12/2020 Laterality: N/A; Surgeon: LU Palma; Location: [facility] OR OTHER SURGICAL [...] Alamo MD I can be reached via [employer] secure message (preferred) or Pager #[phone] documented in this encounterDayton VA Medical Center09-29-2023 History and physical note* Aric Turner MD - 08/28/2023 6:14 PM EDT Images from the original note were not included. Internal Medicine Admission History & Physical Patient: George Styles, 1970, [id number] Physician: Aric Turner MD, PGY1, Pager #[phone], service Date of face to face patient [...] So he went to see the transplant placement assistant. He was found elevated Cr and asked [...] Appetite is ok now. Urine is about 9164-7505 ml every day. 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 - continue aspirin 81mg daily, [...] Pierson, Luisa Steven, Renee Freed, Daisha Max Regional Maintenance Manager: José Miguel Garnica All Txt: 04/13/2020 [...] results found for: CYCLOSPORIN , CYCLOSPORIN2 , [id number] , CYCLORAND No results found for: SIROLIMUS [...] Rest as above. Reese Sage MD Pager [phone] documented in this [facility]09-29-2023 History of Present illness Narrative* Rochelle Ribeiro RN - 08/28/2023 2:15 PM EDT Images from the original note were not included. 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 Regional Maintenance Manager: Anayeli Burt Date of Liver Transplant: 04/13/2020 (Kidney), 04/13/2020 (Liver) 3 years 4 months post Liver/Kidney Transplant Primary Disease: Hypertensive Nephrosclerosis Transplant Route Driver: Erma Roe/ Daisha Max Primary Care physician: [...] aspirin, and faMOTIdine None Specified Preferred Lab: [facility] Change in lab frequency / new order [...] every 12 hours. ADDITIONAL INFORMATION: None Specified, [id number] [place] [address] - [address] [facility] [address] [facility] [address] [facility] [address] [facility] [facility] [address] [id number] [place] [address] [address] [facility] [address] [facility] [address] [facility] [address], [address] [facility] [address] ROS and SCREEN: Chest Pain: negative Cough: [...] EDT I saw George Styles at the [facility] on 08/28/2023. Patient is a 53 y.o. 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 Steve Munoz MD manager mining Division of Nephrology [facility] documented in this encounterOSU [facility]09-29-[facility]23 Instructions* Patient Instructions* Mainor Busby RN - 08/28/2023 2:15 PM EDT - Admission for fevers, cough, and night sweats documented in this encounterOS[facility]09-20-2023 History of Present illness Narrative* Andressa Gutiérrez [...] No Mailing/Pickup Date: 08/25/2023 Shipping Address: [address] [place] [address] [address] Contact Info: Specialty ([place]) [phone] Jak[facility] [phone] [facility] [phone] David [phone] Bed[facility] ([facility]) [phone] documented in this encounterDayton VA Medical Center07-14-2023 History of Present illness Narrative* Rebeca Gutierrez, [employer] MEDIA SPECIALIST - 06/12/2023 3:00 PM EDT Images from the original note were not included. George Styles is a 53 y.o. 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 The HLA mismatch was 1A,2B, 1DR. No longer follows with a local placement assistant. History of Present Illness: Since George was [...] and lab results. Rebeca Gutierrez MSN, RN, SAP SPECIALIST-BC, CCTN Certified Nurse Practitioner Comprehensive Transplant Center [facility] [address] [facility] [address] documented in this encounterDayton VA Medical Center07-14-2023 Instructions* Patient Instructions* JEANNA Hess - 06/12/2023 3:00 PM EDT No change in immunosuppression. documented in this encounterOS[facility]07-[facility] History of Present illness Narrative* Anne Choudhury - 06/10/2023 3:16 PM EDT [facility] RX OUTREACH ADVANCED: Call Information: Method of Contact: By Phone Contact Type: Prescriptions Contactor: [facility] Contactee: Patient Contact Outcome: Left message Shipping/Pickup: Medication Name: Mycophenolate sod 180 mg Contact Info: Specialty ([place]) [phone] [facility] [phone] [facility] [phone] David [phone] Bedside Delivery ([facility]) [phone] * Negra Burks - 06/10/2023 3:16 PM EDT [facility] OUTREACH ADVANCED: Call Information: Date and Time of Contact: 06/12/2023 9:43 AM Method of Contact: By Phone Contact Type: Prescriptions Contactor: [facility] Contactee: Patient Contact Outcome: Left message and Follow-up Shipping/Pickup: Medicare B Refill?: No Medication Name: Myco 180 Contact Info: Specialty ([place]) [phone] [facility] [phone] [facility] [phone] David [phone] Bedside Delivery ([facility]) [phone] * Mikaela Pierre - 06/10/2023 3:16 PM EDT [facility] OUTREACH ADVANCED: Call Information: Date and Time of Contact: 06/12/2023 10:08 AM Method of Contact: By Phone Contact Type: Prescriptions Contactor: [facility] Contactee: Patient Shipping/Pickup: Medicare B Refill?: No Medication Name: Mycophenolate 180mg DR Delivery Method: Air Delivery Location: Home Signature Required: No Mailing/Pickup Date: 06/17/2023 Shipping Address: [address] [place] [address] Contact Info: Specialty ([place]) [phone] [facility] [phone] [facility] [phone] David [phone] [facility] ([facility]) [phone] documented in this encounterDayton VA Medical Center04-13-2023 History of Present illness Narrative* Anne Choudhury [...] No Mailing/Pickup Date: 03/16/2023 Shipping Address: [address] [place] [address] Contact Info: Specialty ([place]) [phone] [facility] [phone] [facility] [phone] David [phone] Bedside [facility] ([facility]) [phone] * Andressa Gutiérrez - 03/12/2023 10:34 AM [...] Date: 03/19/2023 Shipping Address: [address] [facility] [address] Contact Info: Specialty ([place]) [phone] [facility] [phone] [facility] [phone] David [phone] Bedside Delivery ([facility]) [phone] documented in this encounterDayton VA Medical Center04-11-2023 History of Present illness Narrative* Vladislav Dali - 03/10/2023 11:58 AM EDT [facility] OUTREACH ADVANCED: Call Information: Date and Time of Contact: 03/10/2023 12:00 PM Method of Contact: By Phone Contact Type: Prescriptions Contactor: [facility] Contactee: Patient Contact Outcome: Left message and Call back later Shipping/Pickup: Medication Name: Mycophenolate ; Tacrolimus Contact Info: Specialty ([place]) [phone] [facility] [phone] [facility] [phone] David [phone] Bed[facility] ([facility]) [phone] [address] History of Present illness Narrative* Vladislav Mcnally - 03/10/2023 11:58 AM EDT [facility] OUTREACH ADVANCED: Call Information: Date and Time of Contact: 03/10/2023 12:00 PM Method of Contact: By Phone Contact Type: Prescriptions Contactor: [facility] Contactee: Patient Contact Outcome: Left message and Call back later Shipping/Pickup: Medication Name: Mycophenolate ; Tacrolimus Contact Info: Specialty ([place]) [phone] [facility] [phone] [facility] [phone] David [phone] Bed[facility] ([facility]) [phone] * Anne Choudhury - 03/10/2023 11:58 AM EDT [facility] OUTREACH ADVANCED: Call Information: Date and Time of Contact: 03/12/2023 10:32 AM Method of Contact: By Phone Contact Type: Prescriptions Contactor: [facility] Contactee: Patient Contact Outcome: Left message Shipping/Pickup: Medication Name: Mycophenolate sodium (MYFORTIC) 180 MG Tab tacrolimus 0.5 mg Contact Info: Specialty ([place]) [phone] [facility] [phone] [facility] [phone] David [phone] Bedside Delivery ([facility]) [phone] documented in [address]02-17-2023 History of Present illness Narrative* Daisha Max DO - 01/16/2023 9:40 AM EST -Referring Provider for today's consult: Daisha Max DO -Primary Care Provider: Zuly Bruno History of Present Illness George Styles is a 52 y.o. male who presents to the [facility] Trans[facility] Hep[facility]ology [facility] today for follow-up of [...] CATHETER PERCUTANEOUS W/ IMAGE GUIDANCE 05/17/2022 Surgeon: Ezno Heart DO; [facility] LIVER TRANSPLANT, ORTHOTOPIC N/A 04/12/2020 Laterality: N/A; Surgeon: LU Palma; Location: [facility] OR KIDNEY TRANSPLANT W/O ALGAACIQ NEPHRECTOMY N/A 04/12/2020 Laterality: N/A; Surgeon: LU Palma; Location: [facility] OR OTHER SURGICAL [...] 0.3 12/29/2022 Explant Pathology Pathologic Diagnosis A. Ione liver, orthotopic liver transplant resection (1458 gram): [...] A/P with IV contrast (06/27/2022): 1. Both miccosukee kidneys are atrophic with improvement in right-sided [...] frequent nighttime urination, etc). Daisha Max DO Inventory Auditor Gastroenterology, Hepatology and Nutrition [facility] Pager: [phone] * José Miguel Garnica RN - 01/16/2023 9:40 AM EST Images from the original note were not included. 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 Regional Maintenance Manager: Anayeli Burt Date of Liver Transplant: 04/13/2020 (Kidney), 04/13/2020 (Liver) 2 years, 8 months post Liver/KidneyTransplant Primary Disease: Hypertensive Nephrosclerosis Transplant Route Driver: Steve Munoz Primary Care physician: Zuly Bruno [...] levels: No results found for: CYCLOSPORIN, CYCLOSPORIN2, [id number], CYCLORAND No components found for: CYCLOSPORINE, 2HR [...] hours. ADDITIONAL INFORMATION: None Specified [id number] [place] [address] - [address] [facility] [address] [facility] [address] [facility] [address] [facility] [place] [address] [id number] [place] [address] [address] [facility] [address] [place] [address] [facility] [address] [place], [place] [address]e, [facility] [address] [place] [address] ROS and SCREEN: Chest Pain: negative Cough: negative SOB: negative Abd Pain: negative Nausea: negative Vomiting: negative Diarrhea: negative Constipation: negative Dysuria: negative Edema: negative Tremors: negative Headaches: negative Wound issues: negative Alcohol consumption: no Cigarette smoking, smokeless tobacco or vaping/e-cigarette use: no Marijuana (any form), CBD oil or street drug use: no QUESTIONS OR CONCERNS TO ADDRESS WITH PHYSICIAN: documented in this encounterDayton VA Medical Center02-17-2023 Instructions* Patient Instructions* José Miguel Garnica RN - 01/16/2023 9:40 AM EST - Labs Every 2 months - Discuss night time urination with your PCP - Schedule Colonoscopy through PCP - Follow up in 1 year documented in this encounterDayton VA Medical Center10-12-2022 History of Present illness Narrative* Ryan Yepez MD - 09/10/2022 10:10 AM EDT UROLOGY CLINIC NOTE Reason for Appointment: BPH with LUTS HPI: Patient is a 52 yo male with a DDRT to the [facility] in 2019. Nephrostomy tube placed [...] and no hydronephrosis. Some reflux up the miccosukee right ureter but good drainage of both transplant and miccosukee ureter to the bladder. Nephrostomy tube was [...] transplant, orthotopic (N/A, 04/12/2020); kidney transplant w/o miccosukee nephrecto my (N/A, 04/12/2020); and placement nephrostomy [...] x 4, Normal strength. No edema. Skin: [place], warm, and dry. There are no rashes [...] and no hydronephrosis. Some reflux up the miccosukee right ureter but good drainage of both transplant and miccosukee ureter to the bladder. Nephrostomy tube was [...] Ryan Yepez MD 09/10/22 documented in this encounterDayton VA Medical Center08-08-2022 History of Present illness Narrative* Tati Langston [...] off the table and escorted to receptionist where they made a follow up. [...] to have transplant ureter with anastomosis to miccosukee right ureter. Nephrostogram without filling defects and no hydronephrosis. Some reflux up the miccosukee right ureter but good drainage of both transplant and miccosukee ureter to the bladder. Nephrostomy tube was removed without issue. Patient does have some sensation of incomplete bladder emptying and occasional sensation in his right flank. PVR today was 33cc. Will re-evaluate urinary symptoms at next appointment. --continue Flomax --RTC in one month flow flow/PVR/IPSS Patient to call with any additional questions or concerns. Ryan Yepez MD 07/07/[address] [facility]-29-[facility]22 History of Present illness Narrative* Ryan Yepez [...] transplant, orthotopic (N/A, 04/12/2020); kidney transplant w/o miccosukee nephrecto my (N/A, 04/12/2020); and placement nephrostomy [...] x 4, Normal strength. No edema. Skin: [place], warm, and dry. There are no rashes [...] male with a DDRT to the [facility] in 2019. Nephrostomy tube placed [...] bag if needed. documented in this encounterOSU [facility]07-29-2022 History and physical note* JEANNA Padilla - 06/27/2022 10:40 AM EDT Patient was evaluated in clinic as a nurse visit. Please refer to Rena Brewster's note. [facility] Work Phone: [phone] 957-300407-29-2022 History and physical note* JEANNA Padilla - 06/27/2022 10:40 AM EDT Patient was evaluated in clinic as a nurse visit. Please refer to Rena Brewster's note. documented in this encounterOS[facility]07-29-2022 History of Present illness Narrative* Rena Brewster RN - 06/27/2022 10:40 AM EDT TEACHING REGARDING TX NEPH COMPLETED-NEPH TUBE SITE DRY AND INTACT-CLEAR YELLOW URINE IN THE BAG-INSTRUCTED ABOUT FLUSHING, BAG CHANGING ETC. NUMEROUS QUESTIONS ASKED AND ANSWERED-VERBALIZED UNDERSTANDING documented in this encounterOS[facility]07-20-2022 NoteEXAMINATION: CT ABD/PELVIS WO CON HISTORY: UNSPECIFIED [...] mass or enlargement. KIDNEYS: Marked atrophy of miccosukee kidneys. Transplant right pelvic kidney with percutaneous [...] Electronically authenticated by: MÓNICA JIMENEZ Date: 2022-06-18 13:53[facility]07-14-2022 Instructions* Patient Instructions* Anayeli Christianson RN - 06/12/2022 3:21 PM EDT Do not take apart/disrupt nephrostomy tube system. Call Interventional Radiology and/or on-call transplant nurse [phone] for instruction if need to flush (clot or decreased flow). Take cipro 500mg, one tablet, twice per day for 14 days documented in [address]07-14-2022 History of Present illness Narrative* Roxanne Grimes RN - 06/12/2022 2:15 PM EDT Images from the original note were not included. 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 Regional Maintenance Manager: Anayeli Burt Date of Liver Transplant: 04/13/2020 (Kidney), 04/13/2020 (Liver) 2 year, 1 months post Liver/Kidney Transplant Primary Disease: Hypertensive Nephrosclerosis Transplant Route Driver: Steve Munoz Primary Care physician: Zuly Bruno [...] obstructing kidney stone in renal graft at [facility]. Percutaneous Neph Tube placed * Anayeli Christianson RN - 06/12/2022 2:15 PM EDT Images from the original note were not included. Nursing Assessment In Clinic (see Clinic Prep Sheet for additional information) Patient is accompanied to clinic today by: self Did patient require a wheelchair or medical transport for appointment: no Did front office spec confirm current address and insurance information is [...] PREFERRED LAB AND PHARMACY: None Specified [facility] [place] [address] - [address] [address] [facility] [address] [facility] [facility] [address] [id number] [place] [address] [address] [facility] [address] [facility] [address] [facility] [address], [address] [facility] [address] ROS and SCREEN: Chest Pain: negative Cough: [...] EDT I saw George Styles at the [facility] on 06/12/2022. Patient is a 52 y.o. 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 Steve Munoz MD manager mining Division of Nephrology [facility] documented in this encounterOSTogus Va Medical Center07-06-2022 Instructions* Patient Instructions* TATI GROVE - 06/04/2022 11:04 AM EDT Thank you for joining us for your neph tube follow up. We recommend routine exchange every 8-10 weeks. Please reach out at [phone] when it is time to set your next routine exchange. Thank you IR clinic documented in this encounter[facility]07-06-2022 History of Present illness Narrative* Litzy Brice [...] schedule exchange.Verbalized understanding. documented in this encounterOSU [facility]. [facility]06-21-2022 Note* Nursing Notes - Leon Cook RN [...] time of his discharge. Leon Cook RN [facility]06-21-2022 Miscellaneous Notes* Nursing Notes - Leon Cook [...] Cook RN - 05/20/2022 2:01 PM EDT Parisd Vera Dillard MD R10 [address] [place] Please let's have a clear order on how the nephrostomy site dressing need to be changed when the patient goes home so we provide teaching before his discharge Leon GALLARDO #[id number] Leon Cook RN * Plan of Care [...] - 05/19/2022 12:44 PM EDT Discussed with [facility] re: possible urine culture performed at their [...] questions. Evan Byrd MD Urology, PGY-2 #[id number] * Certification - Nishant Gamez MD - [...] 05/16/2022 2:29 AM EDT On admission to [facility], a dual RN initial assessment of skin condition was performed by Kallie Lorenzana RN and Sheri Arguelles RN. Skin Assessment: WDL Jose Score: 20 LDA Added:N Kallie Lorenzana RN documented in this encounterOSTogus Va Medical Center06-21-2022 Note* Plan of Care - Leon Cook [...] discharge/transition of care. Outcome: Adequate for Discharge [facility]06-21-2022 Note* Nursing Notes - Leon Cook RN - 05/20/2022 2:01 PM EDT Tung Dillard MD R10 [address] [place] Please let's have a clear order on how the nephrostomy site dressing need to be changed when the patient goes home so we provide teaching before his discharge Leon RN #[id number] Leon Cook, RN [facility]06-21-2022 History of Present illness Narrative* Yanira Her RPh,PharmD - 05/20/2022 12:01 PM EDT Images from the original note were not included. [facility] Note: [facility] the following [facility] prescription(s): Medication reconciliation was completed with comparison to discharge reconciliation report. The prescription(s) will be delivered to the patient's bedside on 05/20/22. Total cost is $0. Yanira Her RPh,PharmD Specialty ([place]) [phone] [facility] [phone] [facility] [phone] David [phone] [place] [phone] Bedside Delivery ([facility]) [phone] * Maxi Pringle MD - 05/19/2022 12:32 PM EDT Attending I saw George Styles at the [facility] [facility] on 05/19/2022. I saw and independently evaluated [...] Q8H Nishant Gamez MD 5,000 Units at 4 iodixanol (VISIPAQUE) injection 320 mg/mL for IR [...] Daily Progress Note Patient: George Styles, 1970, [id number] Physician: Liam Julian MD, PGY-3, Pager #[phone], [id number] Subjective/Interval History: No acute events overnight. Passed [...] Saldana MD Division of Hospital Medicine Pager [phone] * Maxi Pringle MD - 05/18/2022 7:39 AM EDT Attending I saw George Feliz Jensen at the [facility] on 05/18/2022. 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 Daya (Nunu) Jeff Saldana MD Division of Hospital Medicine Pager [phone] * Nishant Gamez MD - 05/17/2022 8:04 AM EDT Internal Medicine Daily Progress Note Patient: George Styles, 1970, [id number] Physician: Nishant Gamez MD, PGY2, Pager #[phone], [id number] Subjective/Interval History: Worsening creatinine this morning with [...] Saldana MD Division of Hospital Medicine Pager [phone] * Maxi Pringle MD - 05/17/2022 7:07 AM EDT Attending I saw George Styles at the [facility] on 05/17/2022. I saw and independently evaluated [...] review of chart and discussion withtreatment team, Business Objects Analyst has not identified needs at this time. [...] EDT Introduced self and role of the staff nurse midwife to patient. Provided emotional and spiritual support and the patient responded by sharing their experience and discussed the following: - Spirituality/Uatsdin Affiliation: As a kid attended Catholic hinduism but not a strong identity now - Family support - pt's brothers live close by [place] provided: - Supportive presence - Active listening - Validation of feelings/emotions Patient encouraged to request a staff nurse midwife as needed. Chaplains are available in-house 24 hours a day and 7 days a week. For urgent matters in [facility], please page [phone]. If the request is not urgent, please enter a consult. Consults are responded to within 24 hours. Agnie Singh Mdiv, B[facility] and Transplant [place] [phone] [address] [place] [facility] Lumber Tallier [place] [phone] [email or web address] 22/06 [facility] Pager [phone] 22/06 Pager ,[facility], and [place] 1500 22/06 David Pager [phone] 05/16/22 112 Clinical Encounter Type Visited With Patient Visit Type Introduction Pastoral Time Spent 15 min Referral Other (See Comment) (Rounding) Spiritual Assessment Spiritual Observation Spirituality helpful;Identifies as (see comment) (Sabianism) Emotional Observation Coping well Hope Observation Hopeful and accepting Support Observation By Family Interventions Provided Active listening;Supportive presence Facilitated Verbalization of feelings;Sharing of life story;Identifying support system Explored Expectations High School Teacher Education High School Teacher Service Available Yes Educated Patient Outcomes Patient Outcomes Articulated purpose/meaning Plan of Care Continue Visiting PRN * Nishant Gamez MD - 05/16/2022 8:27 AM EDT Internal Medicine Daily Progress Note Patient: George Styles, 1970, [id number] Physician: Nishant Gamez MD, PGY2, Pager #[phone], [id number] Subjective/Interval History: Overall feeling okay this morning. 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 recent [...] Supervision Transfer Assessment: Sit to Stand Transfer [place] Level: Sit->Stand: independent Skilled Intervention/Details: Sit->Stand: x1 from EOB Stand to Sit Transfer [place] Level: Stand->Sit: supervision Assistive Device: Stand->Sit: armed chair Skilled Rationale: Controlled descent for sitting, Verbal cues Gait/Functional Mobility: Gait Assessment [place] Level: Gait: supervision Assistive Device: Gait: gait belt Gait Distance (feet): 200 Gait Deviations Identified: decreased grace, decreased step length, decreased stride length Gait Skilled Rationale: verbal, upright posture Skilled Intervention/Details - Gait: Pt with steady gait without LOB or complaints of SOB. Stairs: Stairs Assessment [place] Level: Stair Negotiation: stand-by assist Assistive Device: Stair Negotiation: gait belt, left rail (ascending) Number of stairs: 9 Stairs Skilled Rationale: reciprocal pattern Outcome Score(s): [facility] Basic Mobility Inpatient Short Form Turning over in bed: 4 - No Assistance Sitting/standing from chair: 4 - No Assistance Moving from lying on back to sittin - No Assistance Moving to and from bed to chair: 4 - No Assistance Walk in hospital room: 3 - A Little Assistance Climbing 3-5 steps with a railin - A Little Assistance [facility] Mobility Raw Score: 22 [facility] Mobility Functional Limitation/Modifier: 20.91% Currently Impaired [...] reported no concerns with discharging home with [facility] support. 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 IADL History IADLs: independent Primary Language: Cook Islander Home Management Skills: independent Meal Prep Responsibility: [...] Assessment: Transfer Assessment: Sit to Stand Transfer [place] Level: Sit->Stand: independent Skilled Rationale: Cues for increased safety Skilled Intervention/Details: Sit->Stand: x1 EOB Stand to Sit Transfer [place] Level: Stand->Sit: supervision Assistive Device: Stand->Sit: gait belt, armed chair Skilled Rationale: Verbal cues, Controlled descent for sitting, Cues for increased safety Skilled Intervention/Details: Stand->Sit: cues for hand placement and controlled descent Functional Mobility: Functional Mobility [place] Level: Functional Mobility/Gait: stand-by assist Assistive Device: Functional Mobility/Gait: gait belt Functional Mobility Distance: Distance needed for limited community mobility Functional Mobility Deficits: Activity tolerance, Balance, Decreased step length, Generalized weakness Functional Mobility Skilled Rationale: Verbal cues, Facilitate postural control Skilled Intervention/Details - Functional Mobility/Gait: cues for upright posture Outcome Score(s): [facility] Daily Activity Inpatient Short Form Putting on/Taking Off Lower Body Clothin - A Little Assistance Bathin - A Little Assistance Toiletin - A Little Assistance Putting on/Taking Off Upper Body Clothin - No Assistance Groomin - No Assistance Eatin - No Assistance [facility] Activity Raw Score: 21 [facility] Activity Functional Limitation/Modifier: 32.79% Currently Impaired [...] DAY SURGERY MAIN OR KIDNEY TRANSPLANT W/O ALGAACIQ NEPHRECTOMY N/A 04/12/2020 Laterality: N/A; Surgeon: LU [...] by: Mel Norman OT, OTR/L License #: [id number] pager # [phone] 05/20/2022 Upon discontinuation of Acute Care Occupational Therapy Services or patient discharge from the hospital this note represents the current Occupational Therapy Discharge Summary. documented [facility] Hospital course Narrative* Nishant Gamez MD [...] during his recent hospital stay at [facility]. As you may know, George Styles, [...] Saldana MD Division of Hospital Medicine p: [phone] f: [phone] CONSULTS DURING ADMISSION: IP CONSULT TO SURGERY - UROLOGY IP CONSULT TO NEPHROLOGY - TRANSPLANT (MEDICINE) IP CONSULT TO INTERVENTIONAL RADIOLOGY IP CONSULT TO PHYSICAL THERAPY IP CONSULT TO OCCUPATIONAL THERAPY IP CONSULT TO PHARMACY BEDSIDE DISCHARGE MED DELIVERY IMAGING / PROCEDURES / RESULTS: Should you require further information or copies of results or reports please contact Medical Information Management @ [phone] LABS AT TIME OF DISCHARGE: Lab Results [...] Bruno [address] [place] / [place] [address] MEDICATIONS: Discharge Orders CT ABDOMEN/PELVIS WITHOUT CONTRAST [...] CAPS Generic drug: docusate Follow-up: Zuly Bruno, HIGH SCHOOL LIBRARY MEDIA SPECIALIST [address] [facility] [phone] Schedule an appointment as soon as possible for a visit Follow-up appointment with your, primary care physician within 7-10 days, after discharge. [address] [facility] [phone] Follow up The department of urology will call you with a follow up appointment. LU Ovalle [address] 11th Floor [facility] [address] Follow up Please make a follow up appointment with Dr. Munoz's office. Upcoming Appointments (up to five)-Some appointments for Medical Center outpatient clinics or diagnostic testing locations are not displayed below Provider Department Dept Phone 06/04/2022 10:40 AM IR [facility] Interventional Radiology Clinic [phone] 06/27/2022 1:30 PM [facility] Department of Radiology Arrive at: Arrive to First Floor Registration Desk [phone] 06/27/2022 2:40 PM Ryan Yepez [facility] [place] Arrive at: Arrive to 2nd Floor, Registration [address] 10/31/2022 1:00 PM Steve Munoz [facility] Transplant [facility] [phone] 01/16/2023 9:40 AM TRANSPLANT HEPATOLOGY , [facility] Transplant [facility] [phone] Associated attestation - Daya Saldana MD - [...] MD (Peggy) Division of Hospital Medicine Pager [phone] documented in this encounter[facility] [facility] Hospital Discharge instructions* Discharge Instr - Wound [...] be changed by Interventional Radiology. Please call [phone] to schedule this appointment and with any questions or concerns you may have regarding the nephrostomy tube. If you have questions or concerns, please call Interventional Radiology at SOMEONE FROM INTERVENTIONAL RADIOLOGY WILL CALL YOU FOR A FOLLOW UP IN THE IR CLINIC Giulia Cavazos RN Nurse Coordinator Interventional Radiology Interventional Radiology Outpatient scheduling documented in this encounterOST[facility]22 Note* Plan of Care - Josey Braun [...] Ongoing Goal: Interdisciplinary Rounds/Family Conf Outcome: [facility]20[facility] Note* Plan of Care - Liam Julian MD - 05/19/2022 12:44 PM EDT Discussed with [facility] re: possible urine culture performed at their facility. However, based on urinalysis completed at that time, which was only notable for hematuria, culture was not performed and sample no longer feasible for culture. Liam Julian MD Internal Medicine/Pediatrics, PGY-3 [facility]06-19-2022 Note* Nursing Notes - Carolyn Isaac RN - 05/18/2022 8:03 PM EDT 2002: IHIS message sent to Dr Justyn Wen, regarding patient passing a small kidney stone, about the size of pea. MD notified. Stone left in strainer in pt bathroom. 0500: IHIS message sent to Dr Justyn Wen, regarding pt BP 174/77. [facility]06-19-20[facility] Note* Plan of Care - Mel Hampton [...] outcomes by discharge/transition of care. Outcome: [facility]ng[facility]ing [facility]06-19-2022 Note* Plan of Care - Елена Martinez [...] becomes hyponatremic, NS should instead be used. [facility] Work Phone: 1(539) 653-827806-19-2022 Note* Nursing Notes - Carolyn Isaac RN - 05/18/2022 4:37 AM EDT IHIS chat sent to Dr Tray Quintana, regarding pt BP 190/86. Pt complaining of pain at site of neph tube. PRN pain medication given per order parameters. Pt denies any other symptoms at this time. notified and aware. [facility]06-18-2022 Note* Nursing Notes - Danitza Thompson RN - 05/17/2022 12:28 PM EDT At 0900, I rounded with Dr. Gamez and Dr. Saldana. At that time I checked Mr. Styles's vital signs. His pulse oximeter was low and he was tachypneic. Verbal order at bedside to put nasal cannula on starting at 2liters oxygen and to provide incentive spirometer. [facility]06-18-2022 Note* Nursing Notes - Meka Rincon RN - 05/17/2022 10:52 AM EDT Interventional Radiology procedure completed with IR Attending Dr. Heart / Dr. Le of percutaneous right nephrostomy tube placement transplant kidney 10.2 Fr Moya acosta Pt tolerated procedure with moderate sedation local numbing agent . Transported to inpatient after phase I recovery. Post procedure orders in place. [facility]* Nursing Notes - Danitza Thompson RN - 05/16/2022 4:57 PM EDT At 1530, I text parisd Kaitlynn Gomez MD that patient has only had 25ml urine output in matias this afternoon. [facility]* Plan of Care - Evan Byrd [...] with questions. Evan Byrd MD Urology, PGY-2 #[id number] [facility] Work Phone: 1(705) 851-613806-17-2022 Note* Certification - Nishant Gamez MD - 05/16/2022 11:20 AM EDT I certify that this patient requires inpatient services at this time. I anticipate the expected length of stay will include at least two midnights. Inpatient services are due to the following medicalconcerns Obstructive kidney stone. Plans for post hospitalization care will be discharge to home. [facility] Consult note* Maria De Jesus Pollock MD, PhD - 05/16/2022 9:37 AM EDTAssociated Order(s): IP CONSULT TO NEPHROLOGY - TRANSPLANT (MEDICINE) I saw George Styles at the [facility] on 05/16/2022. Reason for Consultation: kidney stone [...] where he was given flomax and senthome. [place] better but noticed more pain and decreased [...] best assessment and recommendations. Maxi Pringle MD [facility] Work Phone: 1(103) 541-917606-17-2022 Consult note* Maria De Jesus Pollock MD, PhD - 05/16/2022 9:37 AM EDTAssociated Order(s): IP CONSULT TO NEPHROLOGY - TRANSPLANT (MEDICINE) I saw George Styles at the [facility] on 05/16/2022. Reason for Consultation: kidney stone [...] where he was given flomax and senthome. [place] better but noticed more pain and decreased [...] states he went to his local ED [place] and he was put on Flomax and he did improve. Pt states last night he was unable to void with severe right sided abd pain. Pt states nausea and no vomiting or fevers. Pt states he went back to [place] ED at 0100 and they placed a [...] orthotopic (N/A, 04/12/2020); and kidney transplant w/o miccosukee nephr ectomy (N/A, 04/12/2020). 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 The miccosukee kidneys are progressively atrophic bilaterally compared to [...] of 06/14/2020 are no longer present. The miccosukee distal right ureter is decompressed beyond this [...] with surgical history for renal graft and miccosukee right urinary drainage, as a discrete ureteroneocystostomy is not identified, and the graft may be draining via a ureteroureterostomy. Urology consultation recommended. 3. The miccosukee kidneys are bilaterally atrophic, with right renal sinus calcifications consistent with nonobstructing right miccosukee renal calculi up to 6 mm. Normal [...] PGY-3, Department of Urologic Surgery Pager #: [phone] Associated attestation - Ryan Yepez MD - [...] --may continue flomax documented in this encounter[facility] Note* Plan of Care - Kallie Lorenzana [...] Trust Relationship/Rapport: care explained choices provided [facility]* Nursing Notes - Kallie Lorenzana RN - 05/16/2022 2:29 AM EDT On admission to R10, a dual RN initial assessment of skin condition was performed by Kallie Lorenzana RN and Sheri Arguelles RN. Skin Assessment: WDL Joes Score: 20 LDA Added:N Kallie Lorenzana RN [facility]06-16-2022 Emergency department Note* Karlie Bean RN - 05/15/2022 11:14 PM EDT Report given to Kallie RN at 10 [facility]06-16-2022 Emergency department Note* Karlie Bean RN - [...] 04/12/2020 Laterality: N/A; Surgeon: LU Palma; Location: [facility] DAY SURGERY MAIN OR KIDNEY TRANSPLANT W/O ALGAACIQ NEPHRECTOMY N/A 04/12/2020 Laterality: N/A; Surgeon: LU Palma; Location: [facility] SAME DAY SURGERY MAIN OR OTHER SURGICAL [...] 05/15/2022 2:15 PM EDT Pt arrives from [facility] with kidney stones. Pt states he had right lower abd pain and right flank pain with blood in his urine since Thursday. Pt states he went [place] his local [place] was put on [place] and he did improve. Pt states last night he was unable to void with severe right sided abd pain. Pt states nausea and no vomiting or fevers. Pt states he went back to [place] EDat 0100 and they placed a matias and CT scan completed and multiple kidney stones noted. [facility] as he had liver and kidney transplant in 03/2020. documented in this 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 [...] dilation of the calyces may represent narrowing/partial [id number] ofthe ureter and mild hydronephrosis or sequela [...] MD Division of Hospital Medicine [phone] [facility] Work Phone: 1(762) 686-523506-16-2022 History and physical note* Evan Bennett MD - 05/15/2022 9:18 PM EDT Internal Medicine Admission History & Physical Patient: George Styles, 1970, [id number] Physician: Evan Bennett MD, PGY1, Pager #[phone], GM 4 service Date of face to [...] 04/12/2020 Laterality: N/A; Surgeon: LU Palma; Location: [facility] DAY [facility]ERY MAIN OR KIDNEY TRANSPLANT W/O ALGAACIQ NEPHRECTOMY N/A 04/12/2020 Laterality: N/A; Surgeon: LU Palma; Location: [facility] DAY [facility]ERY MAIN OR OTHER SURGICAL [...] erythema: Skin: No jaundice or rash 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 [...] dilation of the calyces may represent narrowing/partial [id number] ofthe ureter and mild hydronephrosis or sequela [...] Hospital Medicine [id number] documented in this [facility] Emergency department Note* Nisha Gardiner RN - 05/15/2022 7:02 PM EDT Bladder scan with Dr Villatoro at bedside, 14ml noted [facility] Consult note* Stephanie Tomas MD - 05/15/2022 [...] states he went to his local ED [place] and he was put on Flomax and he did improve. Pt states last night he was unable to void with severe right sided abd pain. Pt states nausea and no vomiting or fevers. Pt states he went back to [place] ED at 0100 and they placed a [...] orthotopic (N/A, 04/12/2020); and kidney transplant w/o miccosukee nephr ectomy (N/A, 04/12/2020). 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 The miccosukee kidneys are progressively atrophic bilaterally compared to [...] of 06/14/2020 are no longer present. The miccosukee distal right ureter is decompressed beyond this [...] with surgical history for renal graft and miccosukee right urinary drainage, as a discrete ureteroneocystostomy is not identified, and the graft may be draining via a ureteroureterostomy. Urology consultation recommended. 3. The miccosukee kidneys are bilaterally atrophic, with right renal sinus calcifications consistent with nonobstructing right miccosukee renal calculi up to 6 mm. Normal [...] PGY-3, Department of Urologic Surgery Pager #: [phone] Associated attestation - Ryan Yepez MD - [...] future before surgical intervention --may continue flomax [facility] Work Phone: 1(602) 364-154806-16-2022 Emergency department Note* Nisha Gardiner RN - 05/15/2022 6:[address] Schneider concerning no urine output via matias catheter. [facility]06-16-2022 Physician Emergency department Note* Gian Villatoro [...] plan of care. Gian Villatoro MD 05/15/222003 [facility] Work Phone: 1(221) 809-713006-16-2022 Emergency department Note* Nisha Gardiner RN - 05/15/2022 5:[address] Schneider made aware of only 30 ml urine via matias since arrival to room. [facility]06-16-2022 Physician Emergency department Note* Matt Schneider MD [...] DAY SURGERY MAIN OR KIDNEY TRANSPLANT W/O ALGAACIQ NEPHRECTOMY N/A 04/12/2020 Laterality: N/A; Surgeon: LU [...] 1736 CREATININE SERUM(!): 2.85 Baseline around 1.4 1736 [...] any incorrections. Matt Schneider MD Resident 05/15/222030 [facility] Work Phone: 1(144) 747-827006-16-2022 Emergency department Note* Lynn Rutherford RN - 05/15/2022 2:15 PM EDT Pt arrives from [facility] with kidney stones. Pt states he had right lower abd pain and right flank pain with blood in his urine since Thursday. Pt states he went to his local ED [place] and[place] was put on Flomax and he did improve. Pt states last night he was unable to void with severe right sided abd pain. Pt states nausea and no vomiting or fevers. Pt states he went back to [place] EDat 0100 and they placed a matias and CT scan completed and multiple kidney stones noted. Pt sent to [facility] ED as he had liver and kidney transplant [facility] 03/2020. [facility]04-15-[facility] History of Present illness Narrative* Miranda [...] Required: No Mailing/Pickup Date: 03/17/2022 Shipping Address: [address] [place] [address] 179 Contact Info: Specialty ([place]) [phone] [facility] [phone] [facility] [phone] [place] [phone] Bedside Delivery ([facility]) [phone] documented in this encounterDayton [facility]07-16-2021 History of Present illness Narrative* Angel Carpio [facility],PharmD - 06/14/2021 11:57 AM EDT [facility] OP [...] 05/16/22 Goal Progress: Satisfactory Contact Info: Specialty ([place]) [phone] [facility] [phone] [facility] [phone] David [phone] Bedside Delivery ([facility]) [phone] * Mallika Henderson - 06/14/2021 11:57 AM [...] Home Signature Required: Yes Shipping Address: [address] [place] [address] Contact Info: Specialty ([place]) [phone] [facility] [phone] [facility] [phone] David [phone] Bedside Delivery ([facility]) [phone] documented in this encounterDayton VA Medical CenterEvaluation + Plan note Future Appointments Appointment Date:11/22/2024 09:00:00 AM Scheduled Provider:JONATHAN Almodovar APRN, [place] Location:[facility] Appointment Type:URO Office Visit [facility] evaluation + Plan note Future Appointments Appointment Date:03/09/2025 10:20:00 AM Scheduled Provider:JONATHAN Almodovar APRN, [place] [facility] Location:[facility] Appointment Type:URO Office Visit [facility] [place] Evaluation note* Diagnosis FAYE (acute kidney injury)- Primary Acute kidney failure, unspecified Hydronephrosis due to obstruction of ureteral orifice Hydronephrosis due to obstruction of ureteral orifice FAYE (acute kidney injury) Acute kidney failure, unspecified documented in this encounter [facility] Diagnosis Follow-up exam- Primary Unspecified follow-up examination documented in this encounter [facility] Diagnosis Immunosuppressed status- Primary Unspecified disorder of immune mechanism Kidney replaced by transplant Liver replaced by transplant Abnormal blood chemistry Other abnormal blood chemistry High risk medication use Encounter for long-term (current) use of other medications Aftercare following organ transplant [facility] Attention to nephrostomy- Primary documented in this [facility] Diagnosis Other hydronephrosis- Primary documented in this [facility] Diagnosis FAYE (acute kidney injury) Acute kidney failure, unspecified [facility] Diagnosis Other hydronephrosis- Primary -donor kidney transplant recipient Kidney replaced by transplant documented [facility] this 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) Encounter for screening for malignant neoplasm of prostate Special screening for malignant neoplasm of prostate [facility] Diagnosis Abnormal blood chemistry- Primary Other abnormal blood chemistry Liver transplant recipient Kidney replaced by transplant Immunosuppressed status Unspecified disorder of immune mechanism Aftercare following organ transplant [facility] Kidney replaced by transplant- Primary [facility] Diagnosis Immunosuppressed status- Primary Unspecified disorder of immune mechanism Kidney replaced by transplant Aftercare following organ transplant High risk medication use Encounter for long-term (current) use of other medications Other general symptoms and signs Abnormal blood chemistry Other abnormal blood chemistry Hypertension secondary to other renal disorders [facility] Histoplasmosis- Primary [...] Fever Fever, unspecified [facility] Diagnosis Bilateral lower extremity edema- Primary 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) Atherosclerosis 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) Atherosclerosis of aorta Obesity (BMI 30-39.9) DARLENE (obstructive sleep apnea) Obstructive sleep apnea (adult) (pediatric) Tremor Abnormal involuntary movements Immunocompromised (CMS/HCC) Unspecified immunity deficiency Primary hypertension ([facility]/HCC) Unspecified essential hypertension Shortness of breath documented in this encounter [facility]* Diagnosis Pleural effusion [...] specified pre-operative examination [facility] Diagnosis Heart failure, diastolic, acute- Primary Acute diastolic heart failure [facility] Diagnosis Liver lesion- Primary Other specified disorders of liver Liver transplant recipient High risk medication use Encounter for long-term (current) use of other medications Therapeutic drug monitoring Encounter for therapeutic drug monitoring Immunocompromised Unspecified immunity deficiency [facility] Kidney replaced by transplant- Primary [facility] Diagnosis DARLENE (obstructive sleep [...] of urinary stream documented in this encounter [facility]* Diagnosis DARLENE (obstructive sleep apnea)- [...] of urinary stream documented in this encounter [facility]* Diagnosis Primary hypertension (CMS/HCC) Unspecified essential hypertension documented in this encounter [facility]* Diagnosis DARLENE (obstructive sleep apnea)- [...] Calculus of kidney documented in this encounter [facility]* Diagnosis Primary hypertension (CMS/HCC)- [...] of urinary stream documented in this encounter [facility]* Diagnosis DARLENE (obstructive sleep apnea)- [...] kidney Other polyneuropathy documented in this encounter [facility]Evaluation note* Diagnosis DARLENE (obstructive sleep apnea)- [...] replaced by transplant documented in this encounter [facility]* Diagnosis DARLENE (obstructive sleep apnea)- [...] Medicare patient- Primary Liver transplant status (Z94.4) DALRENE (obstructive sleep apnea) Obstructive sleep apnea (adult) [...] fracture (CMS/HCC) Kidney stones Calculus of kidney Primary hypertension (CMS/HCC) Unspecified essential hypertension documented [...] fracture (CMS/HCC) Kidney stones Calculus of kidney Primary hypertension (CMS/HCC)- Primary Unspecified essential hypertension DARLENE (obstructive sleep apnea) Obstructive sleep apnea (adult) (pediatric) Bilateral lower extremity edema Other osteoporosis without current pathological fracture (CMS/HCC) Obesity (BMI 30-39.9) Immunodeficiency, unspecified (CMS/HCC) History of kidney transplant (CMS/HCC) Kidney replaced by transplant History of liver transplant (CMS/HCC) Liver replaced by transplant Gastroesophageal reflux disease, unspecified whether esophagitis present Other polyneuropathy Elevated blood uric acid level- Primary documented in this encounter [facility]* Diagnosis DARLENE (obstructive sleep apnea)- [...] (CMS/HCC)- Primary Unspecified essential hypertension Immunodeficiency, unspecified Liver transplant status Portal hypertension (CMS/HCC) Portal hypertension Obesity (BMI 30-39.9) Other osteoporosis without current pathological fracture Kidney stones Calculus of kidney Primary hypertension (CMS/HCC)- Primary Unspecified essential hypertension DARLENE (obstructive sleep apnea) Obstructive sleep apnea (adult) (pediatric) Bilateral lower extremity edema Other osteoporosis without current pathological fracture Obesity (BMI 30-39.9) Immunodeficiency, unspecified History of kidney transplant (CMS/HCC) Kidney replaced by transplant History of liver transplant (CMS/HCC) Liver replaced by transplant Gastroesophageal reflux disease, unspecified whether esophagitis present Other polyneuropathy Other osteoporosis without current pathological fracture Liver transplant status Organ transplant Unspecified organ or tissue replaced by transplant [facility] N[facility] No data available for this section [facility] Discharge instructions Additional Instructions DISCHARGE INSTRUCTIONS [...] times daily if needed. - Office number [phone]. [facility] Work Phone: Progress note No data available for this section [facility] reason for referral (narrative)* Consultation (Routine) - New Request Specialty Diagnoses / Procedures Referred By Deni edwards Referred To Contact Interventional Radiology Diagnoses Hydronephrosis due to obstruction of ureteral orifice Daya Saldana MD [address] [place] [address] Referral ID Status Reason Start Date Expiration Date V isits Requested Visits Authorized [id number] New Request 05/18/2022 06/12/2023 1 1 * Radiology (Emergency) - New Request Specialty Diagnoses / Procedures Referred By Deni edwards Referred To Contact Procedures US RENAL TRANSPLANT SCAN Daya Saldana MD [address] [place] [address] Referral ID Status Reason Start Date Expiration Date V isits Requested Visits Authorized [id number] New Request 05/16/2022 06/10/2023 1 1 * Consultation (Routine) - New Request Specialty Diagnoses / Procedures Referred By Deni edwards Referred To Contact Urology Diagnoses FAYE (acute kidney injury) Ryan Yepez MD [address] [facility] [address] [place] [address] Referral ID Status Reason Start Date Expiration Date V isits Requested Visits Authorized [id number] New Request 05/16/2022 06/10/2023 1 1 * MRI/CAT Scan (Routine) - New Request Specialty Diagnoses / Procedures Referred By Contac t Referred To Contact Diagnoses FAYE (acute kidney injury) Procedures CT ABDOMEN/PELVIS WITHOUT CONTRAST CHG CT SCAN,ABDOMENT AND PELVIS,W/O CONTRAST Ryan Yepez MD [address] [place] [address] Referral ID Status Reason Start Date Expiration Date V isits Requested Visits Authorized [id number] New Request 05/16/2022 06/10/2023 1 1 * (Routine) - Pending Review Specialty Diagnoses / Procedures Referred By Contac t Referred To Contact Procedures PLATELET MONITORING PER PROTOCOL Daya Saldana MD [address] [place] [address] Referral ID Status Reason Start Date Expiration Date V isits Requested Visits Authorized [id number] Pending Review 05/15/2022 06/09/2023 1 1 * (Routine) - Pending Review Specialty Diagnoses / Procedures Referred By Contac t Referred To Contact Procedures DVT/VTE RISK ASSESSMENT Daya Saldana MD [address] [place] [address] Referral ID Status Reason Start Date Expiration Date V isits Requested Visits Authorized [id number] Pending Review 05/15/2022 06/09/2023 1 1 * (Routine) Specialty Diagnoses / Procedures Referred By Contac t Referred To Contact Evan Bennett MD [address] [place] [address] [place] [address] Referral ID Status Reason Start Date Expiration Date Visits Re quested Visits Authorized * (Routine) Specialty Diagnoses / Procedures Referred By Deni edwards Referred To Contact Evan Bennett MD [address] [place] [address] Referral ID Status Reason Start Date Expiration Date Visits Re quested Visits Authorized [facility] for referral (narrative)* Consultation (Routine) - New Request Specialty Diagnoses / Procedures Referred By Deni edwards Referred To Contact Sleep Medicine Diagnoses Hypoxia Reese Sage MD [address] [place] [address] Referral ID Status Reason Start Date Expiration Date V isits Requested Visits Authorized [id number] New Request 09/10/2023 10/04/2024 1 1 * MRI/CAT Scan (Routine) - New Request Specialty Diagnoses / Procedures Referred By Deni edwards Referred To Contact Diagnoses Histoplasmosis Procedures CT CHEST WITHOUT CONTRAST CHG DIAGNOSTIC COMPUTED TOMOGRAPHY THORAX W/O JAZMINERST Reese Sage MD [address] [place] [address] Referral ID Status Reason Start Date Expiration Date V isits Requested Visits Authorized [id number] New Request 09/10/2023 10/04/2024 1 1 * Radiology (Routine) - New Request Specialty Diagnoses / Procedures Referred By Deni edwards Referred To Contact Procedures US RENAL TRANSPLANT SCAN Steve Munoz MBBS [address] [place] [address] Referral ID Status Reason Start Date Expiration Date V isits Requested Visits Authorized [id number] New Request 08/29/2023 09/22/2024 1 1 * (Routine) - New Request Specialty Diagnoses / Procedures Referred By Contac t Referred To Contact Procedures PLATELET MONITORING PER PROTOCOL Steve Munoz MBBS [address] [place] [address] Referral ID Status Reason Start Date Expiration Date V isits Requested Visits Authorized [id number] New Request 08/28/2023 09/21/2024 1 1 * (Routine) - New Request Specialty Diagnoses / Procedures Referred By Contac t Referred To Contact Procedures DVT/VTE RISK ASSESSMENT Steve Munoz MBBS [address], [place] [address] Referral ID Status Reason Start Date Expiration Date V isits Requested Visits Authorized [id number] New Request 08/28/2023 09/21/[address] [facility] Consultation (Routine) - Pending Review Specialty Diagnoses / Procedures Referred By Contac t Referred To Contact Urology Diagnoses Decreased urine stream Procedures VT OFFICE/OUTPATIENT NEW HIGH MDM 60 MINUTES Zuly Bruno NP [address] [place] [address] Trace Gannon MD [address] [place] [address] Referral ID Status Reason Start Date Expiration Date Visits Requested Visits Authorized [id number] Pending Review Specialty Services Required 08/23/2024 02/19/2025 1 1 * Consultation (Routine) - Pending Review Specialty Diagnoses / Procedures Referred By Contac t Referred To Contact Gastroenterology Diagnoses Gastroesophageal reflux disease, unspecified whether esophagitis present Abdominal pain, generalized Other constipation Procedures VT OFFICE/OUTPATIENT NEW HIGH MDM 60 MINUTES Zuly Bruno NP [address] [place] [address] Alaina Mclaughlin DO [address] [facility] [place] [address] Referral ID Status Reason Start Date Expiration Date Visits Requested Visits Authorized [id number] Pending Review Specialty Services Required 08/23/2024 02/19/2025 1 1 * (Routine) - Authorized Specialty Diagnoses / Procedures Referred By Contac t Referred To Contact Radiology Diagnoses Left carotid bruit Mixed hyperlipidemia (CMS/HCC) Procedures Vascular US carotid artery duplex bilateral Zuly Bruno NP [address] [place] [address] Referral ID Status Reason Start Date Expiration Date V isits Requested Visits Authorized [id number] Authorized 08/23/2024 02/19/2025 1 1 [facility] Instructions * Patient Instructions - Christin Elizabeth APRN-HIGH SCHOOL LIBRARY MEDIA SPECIALIST - 10/19/2018 9:21 AM EST You should take an extra dose of the lactulose as needed so that you are having 3-4 bowel movementsdaily. You should start the chemical dependency counseling as soon as possible. If you have questions, call the transplant rn social work Fidelina Pierson. in this encounter* Patient Instructions - Sophie Cary RN - 10/12/2018 11:09 AM EST You have been seen in the pre-transplant evaluation clinic by Dr. Restrepo and Sophie Cary. Sophie Cary is your pre-development coordinator she can be reached at [phone] at any time for questions during the pre-transplant process. Your evaluation is complete pendin. Abdominal ultrasound. 2. 6 minute walk test. 3. Cardiology evaluation. Additionally, your real estate director will recommend testing to screen for coronary artery disease. This will be scheduled for you after your cardiology visit. 4. Your coordinator will be requesting record from your last dental visit, colonoscopy and EGD. 5. Please work to complete social work recommendations. Your rn social work will be contacting you to follow up on your progress. 6. You have also been referred for a kidney transplant. An appointment will be scheduled for you sari evaluated in the kidney transplant clinic after you have satisfied requirements dictated by [employer]. Once your testing is complete, we [...] ___ Other Name MRN * Christin Elizabeth, SAP SPECIALIST-HIGH SCHOOL LIBRARY MEDIA SPECIALIST - 10/19/2018 9:00 AM EST Formatting of this note may be different from the original. History of Present Illness: Chief Complaint Patient presents with Follow-up Cirrhosis George Styles is a 48 y.o. male who presents to the [facility] today regarding his diagnosis/chief complaint(s) of Cirrhosis secondary to ETOH, with ESRD follows with Dr. Orr. Currently undergoing evaluation for liver/kidney transplant. Has been seen in transplant clinic for eval. Still undergoing pre testing. Diagnosed in April 2018. Last drink was immediately prior to hospital admission in [place] for ACLF. Hospital course notable for ARF [...] (human immunodeficiency virus infection); Hyperlipidemia; Hyperthyroidism; Hypothyroidism; SD (myocardial infarction); Migraine; DARLENE (obstructive sleep apnea); [...] kidney transplant evaluation. Pt was AOx3. Transplant Contract Modeler role/function was explained and reviewed. The patient [...] and resources were offered. Pt identifies with DENOMINATIONAL amish. Pt confirms being a [place] Citizen. Pt.'s primary language is [place]er. Pt confirms the ability to read,write, and understand [place]er. Pt denies potential donors. Donor cards and [...] has valid license, does not regularly drive (HIGH SCHOOL LIBRARY MEDIA SPECIALIST recommends that he not to drive). [...] related disease etoh cirrohosis April dx in [facility] for thirty days. Pt [...] as well as referred him to pre development coordinator. Pt and support demonstrated moderate understanding [...] Patient's brother David is a self employed senior packaging engineer. Additional support includes his other brother Tyshawn and his Mary live fifteen minutes away. Of note Mary is a hole digger operator for a [employer] is available to assist parts identifier. He confirms being comfortable asking for help. [...] in 2010, he was employed by the [employer]. He has access to SSDI payment (SSDI [...] court ordered treatment after a DUI charge [facility] in [place], court ordered treatment in 2001 and in [...] by patient from his primary medical provider- [facility] patient was noted as attending an alcohol [...] He was provided with local AOD resources, [facility] AOD informational packet. Pt was [...] new visit Date of service: 10/12/2018 -Referring chestnut tanner for today's consult: -Primary Care Provider: Zuly Bruno CC: Chief Complaint Patient presents with Liver Recipient Evaluation History of Present Illness George Styles is a 48 y.o. male who presents to the [facility] liver transplant surgery clinic today for evaluation [...] processes progressing rapidly Unknown * Elisa Tiwari, CAFETERIA FOOD SERVER - 10/12/2018 10:00 AM EST Timed up and go 9.9 seconds Full Roll Inspector Left 52.8 pounds Right 44.9 pounds Waist circ 38.5 inches * Sophie Cary RN - 10/12/2018 10:00 AM EST Formatting of this note may be different from the original. Patient George Styles ([id number]), accompanied by his brother, was seen on [...] any further questions. Sophie GUERINN, RN Liver Regional Maintenance Manager Etiology: ETOH HCC: No ETOH: Yes [...] Yovani Orr MD [address] [address] Status Reason Specialty Diagnoses / Procedures Referred By Contact Referred To Contact New Request Diagnoses Cirrhosis of liver with ascites, unspecified hepatic cirrhosis type Procedures US ABDOMEN RUQ/LIVER/GB Yovani Orr MD [address] [address] Specialty Diagnoses / Procedures Referred By Contac t Referred To Contact Diagnoses FAYE (acute kidney injury) Procedures CT ABDOMEN/PELVIS WITHOUT CONTRAST CHG CT SCAN,ABDOMENT AND PELVIS,W/O CONTRAST Central Scheduling [address] [place] [address] Referral ID Status Reason Start Date Expiration Date V isits Requested Visits Authorized [id number] Pending Review 05/16/2022 06/10/2023 1 1 Specialty Diagnoses / Procedures Referred By Contac t Referred To Contact Diagnoses Other hydronephrosis Procedures FL[facility]O IMAGING FOR UROLOGY Ryan Yepez MD [address] [facility] [address] [place] [address] Referral ID Status Reason Start Date Expiration Date V isits Requested Visits Authorized [id number] New Request 07/07/2022 08/01/2023 1 1 Specialty Diagnoses / Procedures Referred By Contac t Referred To Contact Procedures DIRECT ADMIT REQUEST Steve Munoz, JOSHBS [address] [place] [address] Referral ID Status Reason Start Date Expiration Date V isits Requested Visits Authorized [id number] New Request 08/28/2023 09/21/2024 1 1 Specialty Diagnoses / Procedures Referred By Contac t Referred To Contact Radiology Diagnoses DARLENE (obstructive sleep apnea) Primary hypertension (CMS/HCC) Bilateral lower extremity edema Shortness of breath Procedures Echocardiogram 2D complete Zuly Bruno, BA [address] [place] [address] Referral ID Status Reason Start Date Expiration Date Visits Requested Visits Authorized [id number] Incomplete Perform Procedure 01/06/2024 07/04/2024 1 1 Specialty Diagnoses / Procedures Referred By Contac t Referred To Contact Procedures US IMAGING REGIONAL ANESTHESIA Kehinde Gutierrez MD [address] [place] [address] Referral ID Status Reason Start Date Expiration Date V isits Requested Visits Authorized [id number] New Request 01/22/2024 02/15/2025 1 1 Specialty Diagnoses / Procedures Referred By Contac t Referred To Contact Cardiovascular Medicine Diagnoses Heart failure, diastolic, acute Kelvin Smith MD, MBBS [address] [place] [address] Referral ID Status Reason Start Date Expiration Date V isits Requested Visits Authorized [id number] New Request 01/20/2024 02/13/2025 1 1 Specialty Diagnoses / Procedures Referred By Contac t Referred To Contact Procedures US ABDOMEN LIVER DOPPLER US ABDOMEN LIVER TRANSPLANT DOPPLER Timothy Joseph MD [address] [facility] [address] [place] [address] Referral ID Status Reason Start Date Expiration Date V isits Requested Visits Authorized [id number] New Request 01/16/2024 02/09/2025 1 1 Specialty Diagnoses / Procedures Referred By Contac t Referred To Contact Procedures DVT/VTE RISK ASSESSMENT Kelvin Smith MD, MBBS [address] [place] [address] Referral ID Status Reason Start Date Expiration Date V isits Requested Visits Authorized [id number] New Request 01/16/2024 02/09/2025 1 1 Specialty Diagnoses / Procedures Referred By Contac t Referred To Contact Procedures PLATELET MONITORING PER PROTOCOL Kelvin Smith MD, MBBS [address] [place], [place] [address] Referral ID Status Reason Start Date Expiration Date V isits Requested Visits Authorized [id number] New Request 01/16/2024 02/09/2025 1 1 Referral ID Status Reason Start Date Expiration Date V isits Requested Visits Authorized [id number] New Request 01/16/2024 02/09/2025 1 1 Specialty Diagnoses / Procedures Referred By Contac t Referred To Contact Procedures ECG Kelvin Smith MD, MBBS [address] [place], [place] [address] Referral ID Status Reason Start Date Expiration Date V isits Requested Visits Authorized [id number] New Request 01/16/2024 02/09/2025 1 1 Specialty Diagnoses / Procedures Referred By Contac t Referred To Contact Diagnoses Liver lesion Procedures MRI ABDOMEN WITH AND WITHOUT CONTRAST CHG MRI ABDOMEN W/O & W/CONTRAST MATERIAL Daisha Max, DO [address] [place], [place] [id number] Referral ID Status Reason Start Date Expiration Date V isits Requested Visits Authorized [id number] New Request 06/17/2024 07/12/2025 1 1 Advance Directives No Advanced Directives Records FoundDocuments on File Type Date Recorded Patient Security Systems Installer Expl anation Advance Directives and Living Will Power of Rehabilitation Program Coordinator Latest Code Status on File Code [...] Yovani Orr MD [address] [address] Status Reason Specialty Diagnoses / Procedures Referre d By Contact Referred To Contact Denied Diagnoses Alcoholic cirrhosis, unspecified whether ascites present Pre-transplant evaluation for liver transplant Procedures MRI ABDOMEN WITH CONTRAST VT MRI, ABDOMEN W/CONTRAST Yovani Orr MD [address] [address] Reason Comments Liver Recipient Evaluation Status Reason Specialty Diagnoses / Procedures Referred By Contact Referred To Contact New Request Transplant / Transplant Surgery Procedures PRE NEW PATIENT Yovani Orr MD [address] [address] Alfredito Restrepo MD [address] [address] [place] [address] Reason Comments Reschedule Reason Comments Outside Medical Records Request Reason Comments Social Work Follow-up Reason Comments Kidney Stone Specialty Diagnoses / Procedures Referred By Contac t Referred To Contact Diagnoses Obstructing kidney stone, s/p kidney transplant 2019 Daya Saldana MD [address] [place] [address] [facility] [address] [place] [address] Referral ID Status Reason Start Date Expiration Date Visits Re quested Visits Authorized [id number] 1 1 Reason Comments Follow-up Reason Comments Kidney Recipient Follow-up Liver Recipient Follow-up Reason Comments Consult Reason Comments New Patient Hospital follow up Specialty Diagnoses / Procedures Referred By Contac t Referred To Contact Urology Diagnoses hosp fu with [address] prior Procedures NEW TO DOC/RET PATIENT Zuly Bruno CNP [address] [place] [address] Ryan Yepez MD 91[facility] [[email or web address] [address] [place] [address] Referral ID Status Reason Start Date Expiration Date Visits Re quested Visits Authorized [id number] Closed 06/27/2022 07/22/2023 1 1 Specialty Diagnoses / Procedures Referred By Socorroac t Referred To Contact Diagnoses FAYE (acute kidney injury) Procedures CT ABDOMEN/PELVIS WITHOUT CONTRAST CHG CT SCAN,ABDOMENT AND PELVIS,W/O CONTRAST Central Scheduling [address] [place] [phone] Referral ID Status Reason Start Date Expiration Date V isits Requested Visits Authorized [id number] Pending Review 05/16/2022 06/10/2023 1 1 Reason Comments Follow-up Specialty Diagnoses / Procedures Referred By Contac t Referred To Contact Urology Diagnoses 1 week fu post NT clamp Procedures RETURN PATIENT Zuly Bruno CNP [address] [place] [address] Ryan Yepez MD [address] [facility] [address] [place] [address] Referral ID Status Reason Start Date Expiration Date Visits Requested Visits Authorized [id number] Authorized - 07/07/2022 08/01/2023 2 2 Specialty Diagnoses / Procedures Referred By Contac t Referred To Contact Diagnoses Other hydronephrosis Procedures [facility] Ryan Yepez MD [address] [facility] [address] [place] [address] Referral ID Status Reason Start Date Expiration Date V isits Requested Visits Authorized [id number] New Request 07/07/2022 08/01/2023 1 1 Specialty Diagnoses / Procedures Referred By Contac t Referred To Contact Urology Diagnoses 1 week fu post NT clamp Procedures RETURN PATIENT Zuly Bruno, [employer] [address] [place] [address] Ryan Yepez MD [address] [facility] [address] [place] [address] Referral ID Status Reason Start Date Expiration Date Visits Re quested Visits Authorized [id number] Closed 07/07/2022 08/01/2023 2 2 Reason Comments Liver Recipient Follow-up Reason Comments Kidney Recipient Follow-up Reason Comments Kidney Recipient Follow-up Specialty Diagnoses / Procedures Referred By Contac t Referred To Contact Diagnoses Kidney replaced by transplant Steve Munoz MBBS [address] [place] [address] [facility] [address] [place] [address] Referral ID Status Reason Start Date Expiration Date Visits Re quested Visits Authorized [id number] 1 1 Specialty Diagnoses / Procedures Referred By Contac t Referred To Contact Diagnoses Pleural effusion on right PNEUMONIA- HX LIVER AND KIDNEY TRANSPLANT Reese Sage MD [address] [place] [address] [facility] [address] [place] [address] Referral ID Status Reason Start Date Expiration Date Visits Re quested Visits Authorized [id number] 1 1 Reason Comments New Patient Specialty Diagnoses / Procedures Referred By Deni edwards Referred To Contact Cardiovascular Medicine Diagnoses Heart failure, diastolic, acute Kelvin Smith MD, MBBS [address] [place] [address] Referral ID Status Reason Start Date Expiration Date Visits Requested Visits Authorized [id number] Authorized - 01/20/2024 02/13/2025 5 5 Reason Comments Liver Recipient Follow-up Reason Onset Date Comments Med Refill 10/01/2024 Reason Comments Med Refill Reason Onset Date Comments Med Refill 08/11/2024 Reason Comments Hypertension Reason Onset Date Comments Med Refill 01/05/2025 Reason Onset Date Comments Med Refill 02/01/2025 Reason Comments Osteoporosis NEW REF/DEXA SCAN Specialty Diagnoses / Procedures Referred By Deni edwarsd Referred To Contact Endocrinology Diagnoses Other osteoporosis without current pathological fracture Liver transplant status Organ transplant Procedures [place] OFFICE/OUTPATIENT NEW HIGH MDM 60 MINUTES Zuly Bruno, BA [address] [place] [address] Phone: tel: fax: Tony Hernandez MD [address] [facility] [address] [place] [address] Phone: tel: fax: Referral ID Status Reason Start Date Expiration Date V isits Requested Visits Authorized [id number] Closed Specialty Services Required 01/13/2025 07/12/2025 1 1 (unrecognized sect ion and content) No Status Records FoundNo Status Records FoundNo Status Records FoundNo Status Records FoundNo Status Records FoundNo Status Records FoundNo Status Records FoundNo Status Records Found INFORMATION SOURCE (unrecogn ized section and content) DATE CREATED AUTHOR 01/07/2020 [facility] DATE CREATED AUTHOR AUTHOR'S ORGANIZ ATION 01/27/2021 [facility] DATE CREATED AUTHOR AUTHOR'S ORGANIZ ATION 05/11/2023 [facility] DATE CREATED AUTHOR AUTHOR'S ORGANIZ ATION 06/03/2024 [facility] DATE CREATED AUTHOR AUTHOR'S ORGANIZ ATION 01/05/2025 [facility] DATE CREATED AUTHOR AUTHOR'S ORGANIZ ATION 02/22/2025 Ridge Ernandez [facility] DATE CREATED AUTHOR AUTHOR'S ORGANIZ ATION 02/25/2025 [facility] DATE CREATED AUTHOR AUTHOR'S ORGANIZ ATION 03/01/2025 [facility] dical Specialists EPIC Care Teams (unrecognized sec tion and content) 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 Start Date End Date Zuly Bruno CNP PCP - General 07/19/18 Comfort Rivera [facility] [address] [place] [address] Pharmacist Pharmacist 05/16/20 Angel Carpio [facility],PharmD Pharmacist Pharmacist 05/16/20 Te Leigh RP,PharmD Pharmacist Pharmacist 01/09/21 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 Start Date End Date Zuly Bruno CNP PCP - General 07/19/18 Comfort Rivera [facility] [address] [place] [address] Pharmacist Pharmacist 05/16/20 Angel Carpio RP,PharmD Pharmacist Pharmacist 05/16/20 Te Leigh RP,PharmD Pharmacist Pharmacist 01/09/21 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 Start Date End Date Zuly Bruno CNP PCP - General 07/19/18 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 Start Date End Date Zuly Bruno CNP PCP - General 07/19/18 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 Start Date End Date Zuly Bruno CNP PCP - General 07/19/18 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 Start Date End Date Zuly Bruno CNP PCP - General 07/19/18 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 Start Date End Date Zuly Bruno CNP PCP - General 07/19/18 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 Start Date End Date Zuly Bruno CNP PCP - General 07/19/18 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 Start Date End Date Zuly Bruno CNP PCP - General 07/19/18 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 Start Date End Date Zuly Bruno CNP PCP - General 07/19/18 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 Start Date End Date Zuly Bruno CNP PCP - General 07/19/18 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 Start Date End Date Zuly Bruno CNP PCP - General 07/19/18 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 Start Date End Date Zuly Bruno CNP PCP - General 07/19/18 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 Start Date End Date Zuly Bruno CNP PCP - General 07/19/18 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 Start Date End Date Zuly Bruno CNP PCP - General 07/19/18 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 Start Date End Date Zuly Bruno CNP PCP - General 07/19/18 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 Start Date End Date Zuly Bruno CNP PCP - General 07/19/18 Evan White DO [address] [place] [address] Infectious Disease Infectious Disease 09/09/23 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 Start Date End Date Zuly Bruno CNP PCP - General 07/19/18 Evan White DO [address] [place] [address] Infectious Disease Infectious Disease 09/09/23 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 Start Date End Date Zuly Bruno CNP PCP - General 07/19/18 Evan White DO [address] [place] [address] Infectious Disease Infectious Disease 09/09/23 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 Start Date End Date Momo Verdugo MD PCP - General Family Medicine 05/21/23 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 Start Date End Date Momo Verdugo MD PCP - General Family Medicine 05/21/23 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 Start Date End Date Momo Verdguo MD PCP - General Family Medicine 05/21/23 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 Start Date End Date Zuly Bruno CNP PCP - General 07/19/18 Evan White DO [address] [place] [address] Infectious Disease Infectious Disease 09/09/23 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 Start Date End Date Zuly Bruno CNP PCP - General 07/19/18 Evan White DO [address] [place] [address] Infectious Disease Infectious Disease 09/09/23 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 Start Date End Date Zuly Bruno CNP PCP - General 07/19/18 Evan White DO [address] [place], [place] [id number] Infectious Disease Infectious Disease 09/09/23 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 Start Date End Date Zuly Bruno CNP PCP - General 07/19/18 Evan White DO [address] [place] [address] Infectious Disease Infectious Disease 09/09/23 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 Start Date End Date BrianlatishaZuly tipton CNP PCP - General 07/19/18 Evan White DO [address] [place] [address] Infectious Disease Infectious Disease 09/09/23 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 Start Date End Date BrianlatishaZuly tipton CNP PCP - General 07/19/18 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 Start Date End Date Lexiesylvesterjose eZuly CNP PCP - General 07/19/18 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 Start Date End Date LexiesylvesterAnnie dorantesROB feliz PCP - General 07/19/18 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 Start Date End Date LexiesylvesterZuly dorantes ROB PCP - General 07/19/18 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 Start Date End Date Annie Brunotray ROB PCP - General 07/19/18 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 Start Date End Date Zuly Bruno ROB PCP - General 07/19/18 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 Start Date End Date Zuly Bruno CNP PCP - General 07/19/18 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 Start Date End Date Momo Verdugo MD [address] [place] [address] PCP - General Family Medicine 02/11/24 Zuly Bruno NP [address] [place] [address] Nurse Practitioner Family Medicine 02/11/24 Kasandra Thomas DO [address] [place], [place] [id number] Referring Physician Neurology 02/17/24 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 Start Date End Date Momo Verdugo MD [address] [place] [address] PCP - General Family Medicine 02/11/24 Zuly Bruno NP [address] [place] [address] Nurse Practitioner Family Medicine 02/11/24 Kasandra Thomas DO [address] [place] [address] Referring Physician Neurology 02/17/24 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 Start Date End Date Momo Verdugo MD [address] [place] [address] PCP - General Family Medicine 02/11/24 Zuly Bruno NP [address] [place] [address] Nurse Practitioner Family Medicine 02/11/24 Kasandra Thomas DO [address] [place] [address] Referring Physician Neurology 02/17/24 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 Start Date End Date Momo Verdugo MD [address] [place] [address] PCP - General Family Medicine 02/11/24 Zuly Bruno NP [address] [place] [address] Nurse Practitioner Family Medicine 02/11/24 Kasandra Thomas DO [address] [place] [address] Referring Physician Neurology 02/17/24 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 Start Date End Date Momo Verdugo MD [address] [place] [address] PCP - General Family Medicine 02/11/24 Zuly Bruno NP [address] [place] [address] Nurse Practitioner Family Medicine 02/11/24 Kasandra Thomas DO [address] [place] [address] Referring Physician Neurology 02/17/24 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 Start Date End Date Momo Verdugo MD [address] [place] [address] PCP - General Family Medicine 02/11/24 Zuly Bruno NP [address] [place] [address] Nurse Practitioner Family Medicine 02/11/24 Kasandra Thomas DO [address] [place] [address] Referring Physician Neurology 02/17/24 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 Start Date End Date Momo Verdugo MD [address] [place] [address] PCP - General Family Medicine 02/11/24 Zuly Bruno NP [address] [place] [address] Nurse Practitioner Family Medicine 02/11/24 Kasandra Thomas DO [address] [place] [address] Referring Physician Neurology 02/17/24 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 Start Date End Date Momo Verdugo MD [address] [place] [address] PCP - General Family Medicine 02/11/24 Zuly Bruno NP [address] [place] [address] Nurse Practitioner Family Medicine 02/11/24 Kasandra Thomas DO [address] [place] [address] Referring Physician Neurology 02/17/24 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 Start Date End Date Momo Verdugo MD [address] [place] [address] PCP - General Family Medicine 02/11/24 Zuly Bruno NP [address] [place] [address] Nurse Practitioner Family Medicine 02/11/24 Kasandra Thomas DO [address] [place] [address] Referring Physician Neurology 02/17/24 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 Start Date End Date Momo Verdugo MD [address] [place] [address] PCP - General Family Medicine 02/11/24 Zuly Bruno NP [address] [place] [address] Nurse Practitioner Family Medicine 02/11/24 Kasandra Thomas DO [address] [place] [address] Referring Physician Neurology 02/17/24 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 Start Date End Date Momo Verdugo MD [address] [place] [address] PCP - General Family Medicine 02/11/24 Zuly Bruno NP [address] [place] [address] Nurse Practitioner Family Medicine 02/11/24 Kasandra Thomas DO [address] [place] [address] Referring Physician Neurology 02/17/24 Team Status: Active [...] Other Provider Active Start: December 26, 2024 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 Start Date End Date Momo Verdugo MD [address] [place] [address] PCP - General Family Medicine 02/11/24 Zuly Bruno NP [address] [place] [address] Nurse Practitioner Family Medicine 02/11/24 Kasandra Thomas DO [address] [place] [address] Referring Physician Neurology 02/17/24 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 Start Date End Date Momo Verdugo MD [address] [place] [address] PCP - General Family Medicine 02/11/24 Zuly Bruno NP [address] [place] [address] Nurse Practitioner Family Medicine 02/11/24 Kasandra Thomas DO [address] [place] [address] Referring Physician Neurology 02/17/24 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 Start Date End Date Momo Verdugo MD [address] [place] [address] PCP - General Family Medicine 02/11/24 Zuly Bruno NP [address] [place] [address] Nurse Practitioner Family Medicine 02/11/24 Kasandra Thomas DO [address] [place] [address] Referring Physician Neurology 02/17/24 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 Start Date End Date Momo Verdugo MD [address] [place] [address] PCP - General Family Medicine 02/11/24 Zuly Bruno, BA [address] [place] [address] Nurse Practitioner Family Medicine 02/11/24 Kasandra Thomas DO [address] [place] [address] Referring Physician Neurology 02/17/24 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 Start Date End Date Momo Verdugo MD [address] [place] [address] PCP - General Family Medicine 02/11/24 Zuly Bruno NP [address] [place] [address] Nurse Practitioner Family Medicine 02/11/24 Kasandra Thomas DO [address] [place] [address] Referring Physician Neurology 02/17/24 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 Start Date End Date Momo Verdugo MD [address] [place] [address] PCP - General Family Medicine 02/11/24 Zuly Bruno NP [address] [place] [address] Nurse Practitioner Family Medicine 02/11/24 Kasandra Thomas DO [address] [place] [address] Referring Physician Neurology 02/17/24 Scheduled Active and [...] Leon Cook RN)1747 (Rate/Dose Verify - Provider: eLon Cook RN) diatrizoate Meglumine (Cystografin) 30 % UR solution 80 mL (COMPLETED) 80 mL, Other, ONCE, 1 dose, On Thu05/20/22 at 1330, Radiology Procedure 1251 (Given - Radiol ogy - Provider: Lizz Campos MD - Comment: via neph tube) faMOTIdine (PEPCID) tablet 20 mg 20 mg, Oral, DAILY, First dose on Thu05/16/22 at 0900, Until Discontinued 806 (Given - Provider: Mel Hampton RN) 0806 [...] RN) 0805 (Given - Provider: Josey Braun RN)2058 [...] Oral, DAILY AT BEDTIME NEEDED, Starting on Marat 05/15/22 at 2206, [...] Josey Braun RN)2104 (See Alternative - Provider: Carloyn Isaac RN) sodium chloride 0.9% IV solution 250 mL Intravenous, at 20 mL/hr, NEEDED, Starting on Thu05/15/22 at 2206, Until Thu05/20/22 at 211, Carrier Fluid - See Admin. Inst, 250mL [...] Aixa Holden RN) 0829 (Given - Provider: eTrra Heart RN) tacrolimus (PROGRAF) susp 0.25 mg [...] Discontinued 08 (Given - Provider: Erica Ross RN)161 (Given - Provider: Dillon Lyman RN) [...] Transfer)2008 (Given - Provider: Tati Ahmadi, SAMI) 0923 (Given - Provider: [facility], SAMI) [...] - Reason: Transfer to a Procedural area)1414 ([facility] Unhold - Provider: Automatic Transfer) 0923 (Given - Provider: Terra [facility] RN) Tamsulosin HCl (FLOMAX) capsule 0.4 mg 0.4 mg, Oral, DAILY, First dose on 01/16/24 at 0900, Until Discontinued, Slow release product. Do not chew or crush 0842 (Given - Provider: Erica Ross RN) 0841 (Given - Provider: Terra [facility] RN)1053 ([facility] Hold - Provider: Automatic Transfer - Reason: Transfer to a Procedural area)1414 ([facility] Unhold - Provider: Automatic [...] 0841 (Given - Provider: Terra Heart RN)1053 ([facility] Hold - Provider: Automatic Transfer - Reason: Transfer to a Procedural area)1414 ([facility] Unhold - Provider: Automatic [...] from all sources in 24 hours. 1053 ([facility] Hold - Provider: Automatic Transfer - Reason: Transfer to a Procedural area)1414 ([facility] Unhold - Provider: Automatic [...] 200-200 mg and Simethicone 20 mg) 1053 ([facility] Hold - Provider: Automatic Transfer - Reason: Transfer to a Procedural area)1414 ([facility] Unhold - Provider: Automatic Transfer) guaiFENesin (ROBITUSSIN) oral solution 400 mg 400 mg, Oral, EVERY 6 HOURS NEEDED, Starting on 01/16/24 at 0202, Until 01/23/24 at 1752, Cough, Congestion 1053 ([facility] Hold - Provider: Automatic Transfer - Reason: Transfer to a Procedural area)1414 ([facility] Unhold - Provider: Automatic [...] 0016, Until 01/23/24 at 1752, Insomnia 1053 ([facility] Hold - Provider: Automatic Transfer - Reason: Transfer to a Procedural area)1414 ([facility] Unhold - Provider: Automatic Transfer)2355 (Given - Provider: Tati Ahmadi RN) Ondansetron (ZOFRAN) tablet 4 mg(Linked Group 1) 4 mg, Oral, EVERY 6 HOURS NEEDED, Starting on 01/16/24 at 0202, Until 01/23/24 at 1752, Nausea / Vomiting, 1st line for Nausea/Vomiting 1053 ([facility] Hold - Provider: Automatic Transfer - Reason: Transfer to a Procedural area)1414 ([facility] Unhold - Provider: Automatic Transfer)1809 (See Alternative - Provider: [facility]ra [facility] RN) 0430 (See Alternative - Provider: Tati Ahmadi, SAMI)1415 (Given - Provider: [facility] RN) Ondansetron [...] - Reason: Transfer to a Procedural area)1414 ([facility] Unhold - Provider: Automatic [...] the intermittent or piggy back medication. 1053 ([facility] Hold - Provider: Automatic Transfer - Reason: Transfer to a Procedural area)1414 ([facility] Unhold - Provider: Automatic [...] PRIMARY CLINICAL RECORDS. [facility] [employer] [facility]. provides no warranty or guarantee of the accuracy or completeness of information in this document.
[2025-03-08 10:13] LABS: PTH, Intact 91 pg/mL (15-65)
== END 2025-03-07 06:42 | disposition home or self-care (01) ==
LOC: LAB 06:43
PROVIDERS: PCP Nurse Practitioner; Visit Provider Internal Medicine
DX: M81.8 Other osteoporosis without current pathological fracture (principal)
CPT/HCPCS: 36415; 83970

== ENCOUNTER 2025-03-07 06:51 | Outpatient (OUT) | payer MEDICARE, SELFPAY ==
--- OUTSIDE RECORDS SUMMARY | 2025-03-07 06:59 | XMS_ITS | CCD ---
Author Organization [facility] Care Team Providers Care Park Guide Name Role Phone Kiana Zuly Unavailable Unavailable [...] Unavailable AICHHOLZ, ZULY Primary Care Unavailable Aichholz [facility], [facility] Primary Care Provider Miguel [facility] Un[facility] [phone] Shirin [facility],PharmD, Angel Unavailable Unavailab makayla Leigh [facility],PharmD, Te Unavailable Unavai lable Aicholz [facility], Zuly Primary Care Provider CRISTINA, DR BURCH Admitting Unavailable MISC, DR BURCH Consulting Unavailable AICHHOLZ, ANALOG IC DESIGN ARCHITECT ZULY Primary Care Unavailable MISC, DR BURCH Attending Unavailable MISC, DR BURCH Admitting Unavailable MISC, DR BURCH Consulting Unavailable AICHHOLZ, ANALOG IC DESIGN ARCHITECT ZULY Primary Care Unavailable MISC, DR BURCH Attending Unavailable ARCELIA PIZARRO Consulting Unavailable KE BURNHAM Attending Unavailable KE BURNHAM Admitting Unavailable DR MÓNICA JIMENEZ Consulting Unavailable AICHHOLZ, ANALOG IC DESIGN ARCHITECT ZULY Primary Care Unavailable KE BURNHAM Consulting Unavailable MISC, DR BURCH Consulting Unavailable MISC, DR BURCH Attending Unavailable AICHHOLZ, ANALOG IC DESIGN ARCHITECT ZULY Primary Care Unavailable MISC, DR BURCH Admitting Unavailable MISC, DR BURCH Consulting Unavailable MISC, DR DOCTOR Attending Unavailable AICHHOLZ, ANALOG IC DESIGN ARCHITECT ZULY Primary Care Unavailable MISC, DOCTOR Admitting Unavailable MISC, DR DOCTOR Consulting Unavailable AICHHOLZ, ANALOG IC DESIGN ARCHITECT ZULY Primary Care Unavailable MISC, DOCTOR Admitting Unavailable MISC, DR DOCTOR Attending Unavailable MELINDA, DR GEORGE Munoz Consulting Unavailable MELINDA, DR GEORGE Munoz Attending Unavailable AICHHOLZ, ANALOG IC DESIGN ARCHITECT ZULY Primary Care Unavailable MELINDA, DR GEORGE Munoz Admitting Unavailable NAUN ., KE Consulting Unavailable MIRANDA, LYNDSAY Consulting Unavailable MELINDA, DR GEORGE Munoz Consulting Unavailable NAUN ., KE Attending Unavailable NAUN ., KE Admitting Unavailable AICHHOLZ, ANALOG IC DESIGN ARCHITECT ZULY Primary Care Unavailable NAUN ., KE Consulting Unavailable GIAN HERRING Consulting Unavailable AICHHOLZ, ANALOG IC DESIGN ARCHITECT ZULY Consulting Unavailable AICHHOLZ, ANALOG IC DESIGN ARCHITECT ZULY Attending Unavailable AICHHOLZ, ANALOG IC DESIGN ARCHITECT ZULY Admitting Unavailable AICHHOLZ, ANALOG IC DESIGN ARCHITECT ZULY Primary Care Unavailable MISC, DOCTOR Consulting Unavailable MISC, DOCTOR Admitting Unavailable MISC, DOCTOR Attending Unavailable AICHHOLZ, ANALOG IC DESIGN ARCHITECT ZULY Primary Care Unavailable MISC, DR DOCTOR Consulting Unavailable MISC, DR DOCTOR Attending Unavailable MISC, DR DOCTOR Admitting Unavailable AICHHOLZ, ANALOG IC DESIGN ARCHITECT ZULY Primary Care Unavailable MISC, DOCTOR Admitting Unavailable MISC, DOCTOR Consulting Unavailable MISC, DR DOCTOR Attending Unavailable AICHHOLZ, ANALOG IC DESIGN ARCHITECT ZULY Primary Care Unavailable MISC, DOCTOR Admitting Unavailable MISC, DR DOCTOR Consulting Unavailable AICHHOLZ, ANALOG IC DESIGN ARCHITECT ZULY Primary Care Unavailable MISC, DR DOCTOR Attending Unavailable MISC, DOCTOR Admitting Unavailable MISC, DR DOCTOR Consulting Unavailable AICHHOLZ, ANALOG IC DESIGN ARCHITECT ZULY Primary Care Unavailable MISC, DR DOCTOR Attending Unavailable AICHHOLZ, ANALOG IC DESIGN ARCHITECT ZULY Consulting Unavailable AICHHOLZ, ANALOG IC DESIGN ARCHITECT ZULY Attending Unavailable AICHHOLZ, ANALOG IC DESIGN ARCHITECT ZULY Admitting Unavailable AICHHOLZ, ANALOG IC DESIGN ARCHITECT ZULY Primary Care Unavailable DR MÓNICA JIMENEZ Consulting Unavailable Aichholz [facility], Zuly Primary Care Provider [phone] Evan White DO Unavailable Aichholz [facility], Zuly Primary Care Provider Evan White DO Unavailable Momo Verdugo MD Primary Care Provider Aicholz ANALOG IC DESIGN ARCHITECT, Zuly Primary Care Provider [phone] MIGUEL CARDONA Attending Unavailable KIANA ZULY Magalie Primary Care Physician [phone] Momo Verdugo MD Primary Care Provider [phone] [employer] IT NETWORK ARCHITECT, Zuly Unavailable Kasandra Thomas DO Unavailable Zuly Bruno Primary Care Provider [phone] Briseida LUZ, Imlenny Attending Provider LexieZuly dorantes Primary Care Unavailable Asaad, Imad [...] Propensity to adverse reactions (disorder) 8 [facility] Repository (20 sources) Shellfish-Deriv ed Products Propensity to adverse reactions to drug 9 [facility] (5 sources) Shellfish; Translations: [shellfish] Drug allergy (disorder) Anaphylaxis (disorder) [facility] Repository Medications Current Medications Medication Drug [...] 1 capsule by mouth once daily b izaflgv-B-ijigx acid (NEPHROCAPS) 1 MG capsule Take 1 [...] week(s), # 56 cap(s), Refills(s) 0, Pharmacy: [facility], 170, cm, 01/03/25 11:03:00 EST, Height/Length [...] nausea or vomiting Active polyethylene glycol 3350 90141 mg powder for oral solution (20 sources) [...] Start: 10-03-2024 take 1 capsule by [facility] once daily in the morning Tacrolimus (PROGRAF) [...] 08-20-2022 take 1 capsule by [facility] every twelve hours Tacrolimus (PROGRAF) [...] needed. Start: 03-14-2022 take 1 capsule by [facility] every twelve hours tacrolimus (PROGRAF) 0.5 MG capsule Indications: -donor kidney transplant recipient , Liver transplant recipient Take 2 capsules by mouth every 12 hours. 360 capsule 1 03/14/2022 Active Start: 01-11-2021 take 1 capsule by [facility] twice daily tacrolimus (generic) 0.5 [...] Start: 10-03-2024 take 1 capsule by [facility] once daily Tamsulosin HCl 0.4 MG capsule Take 1 capsule by mouth daily. 90 capsule 1 10/03/2024 Active Start: 09-08-2024 End: 11-17-2025 take 1 capsule by mouth twice daily tamsulosin 0.4 mg Cap 0.4 mg = 1 cap(s), Oral, BID, X 90 day(s), # 180 cap(s), Refills(s) 3, Pharmacy: [facility], 170, cm, 09/08/24 14:00:00 EDT, Height/Length [...] tablet (5 sources) [facility] vitamin D (CHOLECALCIFEROL) 1000 UNIT [...] itraconazole Fax results to: Dr. White - [phone] Transplant [facility] - [phone] Each 09/10/2023 01/19/2024 Discontinued (Medication Reconciliation (suppress cancel msg)) Start: 09-10-2023 CUSTOM MEDICAT ION Labs to be obtained: 1- Tacrolimus level, trough - collect twice weekly until 09/24/23, then weekly until 10/08/23, them once every two weeks there after. 2- Itraconazole level - obtain once between 09/14-09/18. 3- Chem 6 - Obtain weekly while on itraconazole Fax results to: Dr. White - [phone] Trans[facility] - [phone] Each 0 09/10/2023 Active Diatrizoate (1 [...] AN PO) Take by mouth. Active sennosides, [facility] 8.6 mg [...] hrs, # 30 tab(s), Refills(s) 5, Pharmacy: [facility], 170, cm, 11/22/24 9:39:00 EST, Height/Length [...] Overview: Added automatically from request for surgery [id number] Coagulation and hemorrhagic disorders (4 sources) Hypercoagulability state; Translations: [Other primary thrombophilia] 08-21-2018 Chronic Congestive heart failure; nonhypertensive (20 sources) Acute diastolic heart failure; Translations: [Acute diastolic (congestive) heart failure] Onset: 4 01-20-2024 Chronic Coronary atherosclerosis and other heart disease (20 sources) Coronary arteriosclerosis; Translations: [Atherosclerotic heart disease of [place] coronary artery without angina pectoris] Onset: 3 [...] sources) Taking high risk medication; Translations: [Other oil heaterman (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] Episodic Other aftercare (1 [...] Overview: Added automatically from request for surgery [id number] Other liver diseases (3 sources) Liver transplant [...] Overview: Added automatically from request for surgery [id number] Allergic reactions (20 sources) Eczema; Translations: [Dermatitis, [...] 05-10-2020 Episodic Other aftercare (1 source) Other alf (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; Translations: [OTH RISK CONTROL FIELD REPRESENTATIVE 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 THERAPY] Onset: 2 Episodic Other aftercare (1 source) [facility] (current) use of aspirin; Translations: [INTERMEDIATE CURRENT USE OF ASPIRIN] Onset: 2 Episodic [...] March 23, 2025 @8:00am w/ AG in [place]. Normal [facility] ALL CBC WITH AUTO DIFFon BASOPHILS [...] (Bld) 35 % 20.5 - 60.0 % [facility] MCH (RBC) [Entitic mass] 29.5 pg 25.9 - 34.0 pg [facility] MCHC (RBC) [Mass/Vol] 33.2 g/dL 29.9 - 35.2 g/dL [facility] MCV (RBC) [Entitic vol] 88.8 fL 80.0 - 94.0 fL [facility] MONOCYTES ABSOLUTE AUTO 0.4 [facility] Monocytes/100 WBC (Bld) 9.3 % 1.7 - 12.0 % [facility] NEUTROPHILS ABSOLUTE AUTO 2.3 [facility] Neutrophils/100 WBC (Bld) 51.9 % 43.0 - 75.0 % [facility] Platelet mean volume (Bld) [Entitic vol] 9.9 fL 9.5 - 13.5 fL [facility] EO # 0.1 [facility] PLT 219 [facility] RBC 5.26 [facility] WBC 4.5 [facility] Ambulatory Visit Summaryon 0 01-03-2025 Ambulatory Visit [...] APRN, Steph X Where: [facility] [address] [place] [address]- You Need to Schedule the Following Appointments Follow Up with Scooby ADAME, JONATHAN, Steph X, FAM, URL When: Where: Medications What How Much When Instructions New doxycycline (doxycycline hyclate 100 mg Cap) 1 Capsules By Mouth 2 times a day Duration: 4 Weeks may substitute hyclate for monohydrate based on availability Pickup at [facility] Unchanged allopurinol (allopurinol 100 mg Tab) [...] physician if questions or concerns Pharmacy Information [facility]: [address] [place] [id number] [phone] Allergies shellfish (Anaphylaxis) Problems Ongoing - Any [...] asking a (more content not included)... Normal [facility] Urology Office/Clinic Noteon 01-03-2025 Urology Office/Clinic [...] Pt understands and agrees with plan. Ordered: [id number] Measure Post Void residual urine and/or bladder capacity by US- non-imaging Urnls Dip Stick Auto w/o Microscopy POC 03121 3. Erectile dysfunction (N52.9: Male erectile dysfunction, unspecified) LINDEN (3) Started taking Cialis 10mg PRN at prior OV. Ordered: Urnls Dip Stick Auto w/o Microscopy POC 29253 4. Screening PSA (prostate specific antigen) (Z12.5: Encounter for screening for malignant neoplasm of prostate) PSA 09/15/22 - 0.79 08/29/24 - 0.85 Reviewed PSA w patient today. Ordered: Urnls Dip Stick Auto w/o Microscopy POC 80734 5. History of kidney transplant (Z94.0: Kidney transplant status) 08/29/24 - BUN 18, Cre 1.3, GFR 58 Pt had liver and kidney transplant in 2019 and follows yearly with [facility]. [1] Pt reports being on Bactrim 3x weeks for kidney transplant. Ordered: Urnls Dip Stick Auto w/o Microscopy POC 41420 Orders: doxycycline, 100 mg = 1 cap(s), Oral, BID, may substitute hyclate for monohydrate based on availability, X 4 week(s), # 56 cap(s), Refills(s) 0, Pharmacy: [facility], 170, cm, 01/03/25 11:03:00 EST, Height/Length [...] me. Authenticat (more content not included)... Normal [facility] Comment on above: Result Comment: Elec [...] PLT 203 [facility] TB RBC 5.33 [facility] WBC 4.2 [facility] Ambulatory Visit Summaryon 1 01-23-2024 Ambulatory Visit [...] for choosing us for your care. Normal [facility] Urology Office/Clinic Noteon 11-22-2024 Urology Office/Clinic [...] with voice recognition artificial intelligence software, specifically [employer], [employer] and or [employer]. Substitutions may have occurred due to the [...] -Follow-up 4 months per patient preference Ordered: [id number] Measure Post Void residual urine and/or bladder capacity by US- non-imaging Urnls Dip Stick Auto w/o Microscopy POC 10303 2. Erectile dysfunction (N52.9: Male erectile dysfunction, [...] transplant in 2020 and follows yearly with [facility]. [1] Orders: tadalafil, 10 mg = 1 tab(s), Oral, As Directed, take 1 tab at least 1 hr prior to intercourse, do not exceed 20 mg (2 tab) in 24 hrs, # 30 tab(s), Refills(s) 5, Pharmacy: [facility], 170, cm, 11/22/24 9:39:00 EST, Height/Length Dosing, 90, kg, 12... tamsulosin, 0.4 mg = 1 cap(s), Oral, BID, X 30 day(s), # 60 cap(s), Refills(s) 11, Pharmacy: [facility], 170, cm, 09/08/24 14:00:00 EDT, Height/Length Dosing, 90, kg, 09/08/24 14:00:00 EDT, Weight Dosing tamsulosin, 0.4 mg = 1 cap(s), Oral, BID, X 90 day(s), # 180 cap(s), Refills(s) 3, Pharmacy: [facility], 170, cm, 09/08/24 14:00:00 EDT, Height/Length [...] liver disease (more content not included)... Normal [facility] Comment on above: Result Comment: Elec tronically Signed By: JONATHAN Almodovar APRN, Steph Wilson\.br\Date and Time Signed: 11/22/24 09:58 EST ALL CBC WITH AUTO DIFFon BASOPHILS ABSOLUTE AUTO 0 [facility] Basophils/100 WBC (Bld) 0.7 % 0.2 - 2.0 % [facility] Eosinophils/100 WBC (Bld) 2.6 % 0.9 - 7.0 % [facility] Erythrocyte distribution width (RBC) [Ratio] 12.5 % 11.0 - 15.0 % [facility] Hematocrit (Bld) [Volume fraction] 47.5 % 42.0 - 54.0 % [facility] Hemoglobin (Bld) [Mass/Vol] 15.6 g/dL 14.0 - 18.0 g/dL [facility] IMMATURE GRANULOCYTES ABS AUTO 0 [facility] Immature granulocytes/100 WBC (Bld) 0 % 0.0 - 0.5 % [facility] LYMPHOCYTES ABSOLUTE AUTO 1.6 [facility] Lymphocytes/100 WBC (Bld) 36.3 % 20.5 - 60.0 % [facility] MCH (RBC) [Entitic mass] 28.6 pg 25.9 - 34.0 pg [facility] MCHC (RBC) [Mass/Vol] 32.8 g/dL 29.9 - 35.2 g/dL [facility] MCV (RBC) [Entitic vol] 87.2 fL 80.0 - 94.0 fL [facility] MONOCYTES ABSOLUTE AUTO 0.4 [facility] Monocytes/100 WBC (Bld) 9.8 % 1.7 - 12.0 % [facility] NEUTROPHILS ABSOLUTE AUTO 2.2 [facility] Neutrophils/100 WBC (Bld) 50.6 % 43.0 - 75.0 % [facility] Platelet mean volume (Bld) [Entitic vol] 9.5 fL 9.5 - 13.5 fL [facility] EO # 0.1 [facility] PLT 230 [facility] RBC 5.45 [facility] WBC 4.3 [facility] ALL CBC WITH AUTO DIFFon BASOPHILS ABSOLUTE AUTO 0 [facility] Basophils/100 WBC (Bld) 0.5 % 0.2 - 2.0 % [facility] Eosinophils/100 WBC (Bld) 2.6 % 0.9 - 7.0 % [facility] Erythrocyte distribution width (RBC) [Ratio] 12.2 % 11.0 - 15.0 % [facility] Hematocrit (Bld) [Volume fraction] 47.7 % 42.0 - 54.0 % [facility] Hemoglobin (Bld) [Mass/Vol] 15.7 g/dL 14.0 - 18.0 g/dL [facility] IMMATURE GRANULOCYTES ABS AUTO 0.01 [facility] Immature granulocytes/100 WBC (Bld) 0.2 % 0.0 - 0.5 % [facility] Interpretation and review of laboratory results Abnormal [facility] LYMPHOCYTES ABSOLUTE AUTO 1.5 [facility] Lymphocytes/100 WBC (Bld) 37 % 20.5 - 60.0 % [facility] MCH (RBC) [Entitic mass] 28.9 pg 25.9 - 34.0 pg [facility] MCHC (RBC) [Mass/Vol] 32.9 g/dL 29.9 - 35.2 g/dL [facility] MCV (RBC) [Entitic vol] 87.8 fL 80.0 - 94.0 fL [facility] MONOCYTES ABSOLUTE AUTO 0.3 [facility] Monocytes/100 WBC (Bld) 7.7 % 1.7 - 12.0 % [facility] NEUTROPHILS ABSOLUTE AUTO 2.2 [facility] Neutrophils/100 WBC (Bld) 52 % 43.0 - 75.0 % [facility] Platelet mean volume (Bld) [Entitic vol] 9.3 fL Low 9.5 - 13.5 [facility]L [facility] PLT 211 [facility] RBC 5.43 [facility] WBC 4.2 [facility] ALL CBC WITH AUTO DIFFon BASOPHILS ABSOLUTE AUTO 0 [facility] Basophils/100 WBC (Bld) 1 % 0.2 - 2.0 % [facility] Eosinophils/100 WBC (Bld) 2.9 % 0.9 - 7.0 % [facility] Erythrocyte distribution width (RBC) [Ratio] 12.3 % 11.0 - 15.0 % [facility] Hematocrit (Bld) [Volume fraction] 49.9 % 42.0 - 54.0 % [facility] Hemoglobin (Bld) [Mass/Vol] 16.5 g/dL 14.0 - 18.0 g/dL [facility] IMMATURE GRANULOCYTES ABS AUTO 0.01 [facility] Immature granulocytes/100 WBC (Bld) 0.2 % 0.0 - 0.5 % [facility] LYMPHOCYTES ABSOLUTE AUTO 1.3 [facility] Lymphocytes/100 WBC (Bld) 30.6 % 20.5 - 60.0 % [facility] MCH (RBC) [Entitic mass] 29.2 pg 25.9 - 34.0 pg [facility] MCHC (RBC) [Mass/Vol] 33.1 g/dL 29.9 - 35.2 g/dL [facility] MCV (RBC) [Entitic vol] 88.3 fL 80.0 - 94.0 fL [facility] MONOCYTES ABSOLUTE AUTO 0.4 [facility] Monocytes/100 WBC (Bld) 8.8 % 1.7 - 12.0 % [facility] NEUTROPHILS ABSOLUTE AUTO 2.4 [facility] Neutrophils/100 WBC (Bld) 56.5 % 43.0 - 75.0 % [facility] Platelet mean volume (Bld) [Entitic vol] 9.9 fL 9.5 - 13.5 fL [facility] TBH EO # 0.1 [facility]H PLT 245 [facility] TB RBC 5.65 [facility] WBC 4.2 [facility] ALL CBC WITH AUTO DIFFon BASOPHILS ABSOLUTE AUTO 0 [facility] Basophils/100 WBC (Bld) 0.6 % 0.2 - 2.0 % [facility] Eosinophils/100 WBC (Bld) 3.5 % 0.9 - 7.0 % [facility] Erythrocyte distribution width (RBC) [Ratio] 12.3 % 11.0 - 15.0 % [facility] Hematocrit (Bld) [Volume fraction] 47.1 % 42.0 - 54.0 % [facility] Hemoglobin (Bld) [Mass/Vol] 15.4 g/dL 14.0 - 18.0 g/dL [facility] IMMATURE GRANULOCYTES ABS AUTO 0.01 [facility] Immature granulocytes/100 WBC (Bld) 0.2 % 0.0 - 0.5 % [facility] LYMPHOCYTES ABSOLUTE AUTO 1.5 [facility] Lymphocytes/100 WBC (Bld) 31.7 % 20.5 - 60.0 % [facility] MCH (RBC) [Entitic mass] 28.9 pg 25.9 - 34.0 pg [facility] MCHC (RBC) [Mass/Vol] 32.7 g/dL 29.9 - 35.2 g/dL [facility] MCV (RBC) [Entitic vol] 88.4 fL 80.0 - 94.0 fL [facility] MONOCYTES ABSOLUTE AUTO 0.4 [facility] Monocytes/100 WBC (Bld) 8.6 % 1.7 - 12.0 % [facility] NEUTROPHILS ABSOLUTE AUTO 2.7 [facility] Neutrophils/100 WBC (Bld) 55.4 % 43.0 - 75.0 % [facility] Platelet mean volume (Bld) [Entitic vol] 9.7 fL 9.5 - 13.5 fL [facility] EO # 0.2 [facility] PLT 238 [facility] RBC 5.33 [facility] WBC 4.8 [facility] ALL CBC WITH AUTO DIFFon BASOPHILS ABSOLUTE AUTO 0 [facility] Basophils/100 WBC (Bld) 0.6 % 0.2 - 2.0 % [facility] Eosinophils/100 WBC (Bld) 3.2 % 0.9 - 7.0 % [facility] Erythrocyte distribution width (RBC) [Ratio] 12.4 % 11.0 - 15.0 % [facility] Hematocrit (Bld) [Volume fraction] 47 % 42.0 - 54.0 % [facility] Hemoglobin (Bld) [Mass/Vol] 15.8 g/dL 14.0 - 18.0 g/dL [facility] IMMATURE GRANULOCYTES ABS AUTO 0.01 [facility] Immature granulocytes/100 WBC (Bld) 0.2 % 0.0 - 0.5 % [facility] Interpretation and review of laboratory results Abnormal [facility] LYMPHOCYTES ABSOLUTE AUTO 1.1 Low [facility] Lymphocytes/100 WBC (Bld) 22.8 % 20.5 - 60.0 % [facility] MCH (RBC) [Entitic mass] 29.6 pg 25.9 - 34.0 pg [facility] MCHC (RBC) [Mass/Vol] 33.6 g/dL 29.9 - 35.2 g/dL [facility] MCV (RBC) [Entitic vol] 88 fL 80.0 - 94.0 fL [facility] MONOCYTES ABSOLUTE AUTO 0.4 [facility] Monocytes/100 WBC (Bld) 8 % 1.7 - 12.0 % [facility] NEUTROPHILS ABSOLUTE AUTO 3.3 [facility] Neutrophils/100 WBC (Bld) 65.2 % 43.0 - 75.0 % [facility] Platelet mean volume (Bld) [Entitic vol] 9.3 fL Low 9.5 - 13.5 fL [facility] EO # 0.2 [facility] PLT 222 [facility] RBC 5.34 [facility] WBC 5 [facility] ALL CBC WITH AUTO DIFFon BASOPHILS ABSOLUTE AUTO 0 [facility] Basophils/100 WBC (Bld) 0.6 % 0.2 - 2.0 % [facility] Eosinophils/100 WBC (Bld) 2.9 % 0.9 - 7.0 % [facility] Erythrocyte distribution width (RBC) [Ratio] 12.5 % 11.0 - 15.0 % [facility] Hematocrit (Bld) [Volume fraction] 47.1 % 42.0 - 54.0 % [facility] Hemoglobin (Bld) [Mass/Vol] 15.2 g/dL 14.0 - 18.0 g/dL [facility] IMMATURE GRANULOCYTES ABS AUTO 0.01 [facility] Immature granulocytes/100 WBC (Bld) 0.2 % 0.0 - 0.5 % [facility] Interpretation and review of laboratory results Abnormal [facility] LYMPHOCYTES ABSOLUTE AUTO 1.6 [facility] Lymphocytes/100 WBC (Bld) 32.7 % 20.5 - 60.0 % [facility] MCH (RBC) [Entitic mass] 28.5 pg 25.9 - 34.0 pg [facility] MCHC (RBC) [Mass/Vol] 32.3 g/dL 29.9 - 35.2 g/dL [facility] MCV (RBC) [Entitic vol] 88.4 fL 80.0 - 94.0 fL [facility] MONOCYTES ABSOLUTE AUTO 0.4 [facility] Monocytes/100 WBC (Bld) 8.5 % 1.7 - 12.0 % [facility] NEUTROPHILS ABSOLUTE AUTO 2.6 [facility] Neutrophils/100 WBC (Bld) 55.1 % 43.0 - 75.0 % [facility] Platelet mean volume (Bld) [Entitic vol] 9.3 fL Low 9.5 - 13.5 fL [facility] EO # 0.1 [facility] PLT 225 [facility] RBC 5.33 [facility] WBC 4.8 [facility] ALL CBC WITH AUTO DIFFon BASOPHILS ABSOLUTE AUTO 0.0 [facility] Basophils/100 WBC (Bld) 0.6 % 0.2 - 2.0 % [facility] Eosinophils/100 WBC (Bld) 3.2 % 0.9 - 7.0 % [facility] Erythrocyte distribution width (RBC) [Ratio] 12.4 % 11.0 - 15.0 % [facility] Hematocrit (Bld) [Volume fraction] 48.1 % 42.0 - 54.0 % [facility] Hemoglobin (Bld) [Mass/Vol] 15.8 g/dL 14.0 - 18.0 g/dL [facility] IMMATURE GRANULOCYTES ABS AUTO 0.01 [facility] Immature granulocytes/100 WBC (Bld) 0.2 % 0.0 - 0.5 % [facility] LYMPHOCYTES ABSOLUTE AUTO 1.4 [facility] Lymphocytes/100 WBC (Bld) 28.5 % 20.5 - 60.0 % [facility] MCH (RBC) [Entitic mass] 28.8 pg 25.9 - 34.0 pg [facility] MCHC (RBC) [Mass/Vol] 32.8 g/dL 29.9 - 35.2 g/dL [facility] MCV (RBC) [Entitic vol] 87.8 fL 80.0 - 94.0 fL [facility] MONOCYTES ABSOLUTE AUTO 0.4 [facility] Monocytes/100 WBC (Bld) 8.6 % 1.7 - 12.0 % [facility] NEUTROPHILS ABSOLUTE AUTO 2.9 [facility] Neutrophils/100 WBC (Bld) 58.9 % 43.0 - 75.0 % [facility] Platelet mean volume (Bld) [Entitic vol] 9.8 fL 9.5 - 13.5 fL [facility] EO # 0.2 [facility] PLT 240 [facility] RBC 5.48 [facility] WBC 5.0 [facility] ALL CBC WITH AUTO DIFFon BASOPHILS ABSOLUTE AUTO 0.0 [facility] Basophils/100 WBC (Bld) 0.7 % 0.2 - 2.0 % [facility] Eosinophils/100 WBC (Bld) 2.7 % 0.9 - 7.0 % [facility] Erythrocyte distribution width (RBC) [Ratio] 12.4 % 11.0 - 15.0 % [facility] Hematocrit (Bld) [Volume fraction] 47.4 % 42.0 - 54.0 % [facility] Hemoglobin (Bld) [Mass/Vol] 15.6 g/dL 14.0 - 18.0 g/dL [facility] IMMATURE GRANULOCYTES ABS AUTO 0.01 [facility] Immature granulocytes/100 WBC (Bld) 0.2 % 0.0 - 0.5 % [facility] LYMPHOCYTES ABSOLUTE AUTO 1.3 [facility] Lymphocytes/100 WBC (Bld) 29.6 % 20.5 - 60.0 % [facility] MCH (RBC) [Entitic mass] 28.8 pg 25.9 - 34.0 pg [facility] MCHC (RBC) [Mass/Vol] 32.9 g/dL 29.9 - 35.2 g/dL [facility] MCV (RBC) [Entitic vol] 87.5 fL 80.0 - 94.0 fL [facility] MONOCYTES ABSOLUTE AUTO 0.4 [facility] Monocytes/100 WBC (Bld) 8.1 % 1.7 - 12.0 % [facility] NEUTROPHILS ABSOLUTE AUTO 2.6 [facility] Neutrophils/100 WBC (Bld) 58.7 % 43.0 - 75.0 % [facility] Platelet mean volume (Bld) [Entitic vol] 9.9 fL 9.5 - 13.5 fL [facility] EO # 0.1 [facility] PLT 240 [facility] RBC 5.42 [facility] WBC 4.5 [facility] URINE T PROTEIN CREAT RA TIOon 08-15-2024 CREATININE URINE RANDOM 123.63 mg/dL 20.00 - 300.00 mg/dL [facility] Interpretation and review of laboratory results Abnormal [facility] Protein (U) [Mass/Vol] 14.4 mg/dL High NINF - 11.9 mg/dL [facility] PROTEIN CREATININE RATIO URINE 0.12 [facility] ALL CBC WITH AUTO DIFFon BASOPHILS ABSOLUTE AUTO 0.0 [facility] Basophils/100 WBC (Bld) 0.8 % 0.2 - 2.0 % [facility] Eosinophils/100 WBC (Bld) 1.8 % 0.9 - 7.0 % [facility] Erythrocyte distribution width (RBC) [Ratio] 12.2 % 11.0 - 15.0 % [facility] Hematocrit (Bld) [Volume fraction] 47.2 % 42.0 - 54.0 % [facility] Hemoglobin (Bld) [Mass/Vol] 15.7 g/dL 14.0 - 18.0 g/dL [facility] IMMATURE GRANULOCYTES ABS AUTO 0.01 [facility] Immature granulocytes/100 WBC (Bld) 0.2 % 0.0 - 0.5 % [facility] LYMPHOCYTES ABSOLUTE AUTO 1.5 [facility] Lymphocytes/100 WBC (Bld) 29.9 % 20.5 - 60.0 % [facility] MCH (RBC) [Entitic mass] 29.1 pg 25.9 - 34.0 pg [facility] MCHC (RBC) [Mass/Vol] 33.3 g/dL 29.9 - 35.2 g/dL [facility] MCV (RBC) [Entitic vol] 87.4 fL 80.0 - 94.0 fL [facility] MONOCYTES ABSOLUTE AUTO 0.4 [facility] Monocytes/100 WBC (Bld) 8.8 % 1.7 - 12.0 % [facility] NEUTROPHILS ABSOLUTE AUTO 2.9 [facility] Neutrophils/100 WBC (Bld) 58.5 % 43.0 - 75.0 % [facility] Platelet mean volume (Bld) [Entitic vol] 10.0 fL 9.5 - 13.5 fL [facility] EO # 0.1 [facility] PLT 238 [facility] RBC 5.40 [facility] TB WBC 4.9 [facility] URINE T PROTEIN CREAT RA TIOon 08-02-2024 CREATININE URINE RANDOM 134.02 mg/dL 20.00 - 300.00 mg/dL [facility] Interpretation and review of laboratory results Abnormal [facility] Protein (U) [Mass/Vol] 13.8 mg/dL High NINF - 11.9 mg/dL [facility] PROTEIN CREATININE RATIO URINE 0.10 [facility] 36on 06-01-2024 36 Regarding echo perfo rmed on 05/18/2024: MD Cinda Batres MA Please tell him the echo was ok and showed a small residual fluid around the heart. This is significant improvement from before. Follow up as planned. Patient informed and he verbalized understanding. [facility] Office Visiton 05-13-2024 Follow-up visit [id number] George Styles 1970 M Date Provider Department Center 05/13/2024 MIGUEL PARADA [facility] Family History Problem Relation Age of Onset Coronary artery disease Mother Coronary artery disease Father Family Status - Relation Status Age at Mother Father Level of Service:08863 PA OFFICE/OUTPATIENT ESTABLISHED LOW MDM 20 MIN Reason for Visit and Comments: Follow-up [249823] - Yearly follow up Normal [facility] B-TYPE NATRIURETIC PEPTIDE ( BRAIN)on 02-26-2024 Interpretation and review of laboratory results Normal [facility] Natriuretic peptide B (Bld) [Mass/Vol] 72 pg/mL 0 - 100 pg/mL [facility] CHEM 6 (LYTES, BUN CREA)on 0 02-26-2024 Anion gap [Moles/Vol] 13 mmol/L 7 - 17 mmol/L [facility] Chloride [Moles/Vol] 107 mmol/L 98 - 10 8 mmol/L [facility] CO2 [Moles/Vol] 25 mmol/L 21 - 31 mmol/L [facility] Creatinine [Mass/Vol] 1.23 mg/dL 0.70 - 1.30 mg/dL [facility] eGFR, CKD-EPI, Male 70 - PINF [facility] Comment on above: Reported eGFR is bas ed on the CKD-EPI 2020 equation using creatinine, age, and sex. Potassium [Moles/Vol] 4.2 mmol/L 3.5 - 5.0 mmol/L [facility] Sodium [Moles/Vol] 141 mmol/L 135 - 145 mmol/L [facility] Urea nitrogen [Mass/Vol] 17 mg/dL 7 - 25 mg/dL [facility] Urea nitrogen/Creatinine [Mass ratio] 14 mg/mg [facility] CBC,PLATELETSon 01-23-2024 Erythrocyte distribution width (RBC) [Ratio] 14.2 % 10.9 - 14.3 % [facility] Hematocrit (Bld) [Volume fraction] 37.0 % Low 39.6 - 48.8 % [facility] Hemoglobin (Bld) [Mass/Vol] 12.0 g/dL Low 13.4 - 16.8 g/dL [facility] Interpretation and review of laboratory results Abnormal [facility] MCH (RBC) [Entitic mass] 28.6 pg 26.1 - 33.3 pg [facility] MCHC (RBC) [Mass/Vol] 32.4 g/dL 31.9 - 36.5 g/dL [facility] MCV (RBC) [Entitic vol] 88.1 fL 79.0 - 94.5 fL [facility] Platelet mean volume (Bld) [Entitic vol] 10.4 fL 8.7 - 12.3 fL [facility] Platelets (Bld) [#/Vol] 170 10*3/uL 146 - 337 K/uL [facility] RBC (Bld) [#/Vol] 4.20 10*6/uL Low [facility] WBC (Bld) [#/Vol] 3.70 10*3/uL Low 3.73 - 10. 10 K/uL [facility] CHEM 7 (LYTES,BUN,CREA,GLUC) on 01-23-2024 Anion gap [Moles/Vol] 14 mmol/L 7 - 17 mmol/L [facility] Chloride [Moles/Vol] 105 mmol/L 98 - 10 8 mmol/L [facility] CO2 [Moles/Vol] 25 mmol/L 21 - 31 mmol/L [facility] Creatinine [Mass/Vol] 1.32 mg/dL High 0.70 - 1.30 mg/dL [facility] eGFR, CKD-EPI, Male 65 - PINF [facility] Comment on above: Reported eGFR is bas ed on the CKD-EPI 2020 equation using creatinine, age, and sex. Glucose [Mass/Vol] 94 mg/dL 70 - 99 mg/dL [facility] Osmolality Calc [Osmolality] 296 [facility] Potassium [Moles/Vol] 3.8 mmol/L 3.5 - 5.0 mmol/L [facility] Sodium [Moles/Vol] 140 mmol/L 135 - 145 mmol/L [facility] Urea nitrogen [Mass/Vol] 23 mg/dL 7 - 25 mg/dL [facility] Urea nitrogen/Creatinine [Mass ratio] 17 mg/mg [facility] GLUCOSE POCon 01-23-2024 Glucose [Mass/Vol] 88 mg/dL 70 - 99 mg/dL [facility] POC Sample Type CAPBL [facility] Test performed at ad dress of the patient encounter. [facility] Glucose [Mass/Vol] 191 mg/dL High 70 - 99 mg/dL [facility] Interpretation and review of laboratory results Abnormal [facility] POC Sample Type CAPBL [facility] Test performed at ad dress of the patient encounter. [facility] HEPATIC FUNCTION PANELon Albumin [Mass/Vol] 3.9 g/dL 3.5 - 5.0 g/dL [facility] ALP [Catalytic activity/Vol] 83 U/L 32 - 126 U/L [facility] ALT [Catalytic activity/Vol] 9 U/L Low 10 - 52 U/L [facility] AST [Catalytic activity/Vol] 17 U/L 10 - 39 U/L [facility] Bilirubin [Mass/Vol] 1.6 mg/dL High NINF - 1.5 mg/dL [facility] Bilirubin.direct [Mass/Vol] 0.4 mg/dL High NINF - 0.3 mg/dL [facility] Protein [Mass/Vol] 6.6 g/dL 6.4 - 8.3 g/dL [facility] ITRACONAZOLE LEVELon 024 Hydroxyitraconazole [Mass/Vol] 7.6 mcg/mL [facility] Comment on above: REFERENCE VALUE No therapeutic range established; activity and serum concentration are similar to parent drug. ADDITIONAL INFORMATION This test was developed and its performance characteristics determined by [facility] in a manner consistent with CLIA requirements. This test has not been cleared or approved by the U.S. Food and Drug Administration. Test Performed by: [facility] [place] [address] Hse Manager: Rosendo Bose M.D. Ph.D.; CLIA# [id number] Itraconazole [Mass/Vol] 6.0 mcg/mL [facility] Comment on above: REFERENCE VALUE >0.5 (localized infection), >1.0 (systemic infection) [facility] MAGNESIUMon 01-23-2024 Interpretation and review of laboratory results Normal [facility] Magnesium [Mass/Vol] 1.8 mg/dL 1.6 - 2 .6 mg/dL [facility] No Panel Informationon 01-23 Interpretation and review of laboratory results Abnormal [facility] TACROLIMUS LEVEL, TROUGH (PA E DRUG LEVEL)on 01-23-2024 Interpretation and review of laboratory results Normal [facility] Tacrolimus (Bld) [Mass/Vol] 7.0 ng/mL Bone Marrow Transplant: 4.0-12.0, Therapeutic: 5.0-15.0 [facility] Method performed is a chemiluminescent microparticle immunoasssay on the [employer] i2000. The range is based on experience at [facility] and users should be aware that target concentrations vary widely depending on concomitant therapy, time post-transplant, and desired degree of immunosuppression. [facility] CARDIAC RHYTHM (SCANNED)on 0 01-22-2024 [facility] CBC,PLATELETSon 01-22-2024 Erythrocyte distribution width (RBC) [Ratio] 14.1 % 10.9 - 14.3 % [facility] Hematocrit (Bld) [Volume fraction] 41.5 % 39.6 - 48.8 % [facility] Hemoglobin (Bld) [Mass/Vol] 13.3 g/dL Low 13.4 - 16.8 g/dL [facility] Interpretation and review of laboratory results Abnormal [facility] MCH (RBC) [Entitic mass] 27.8 pg 26.1 - 33.3 pg [facility] MCHC (RBC) [Mass/Vol] 32.0 g/dL 31.9 - 36.5 g/dL [facility] MCV (RBC) [Entitic vol] 86.8 fL 79.0 - 94.5 fL [facility] Platelet mean volume (Bld) [Entitic vol] 10.5 fL 8.7 - 12.3 fL [facility] Platelets (Bld) [#/Vol] 186 10*3/uL 146 - 337 K/uL [facility] RBC (Bld) [#/Vol] 4.78 10*6/uL [facility] WBC (Bld) [#/Vol] 3.74 10*3/uL 3.73 - 10. 10 K/uL [facility] CHEM 7 (LYTES,BUN,CREA,GLUC) on 01-22-2024 Anion gap [Moles/Vol] 13 mmol/L 7 - 17 mmol/L [facility] Chloride [Moles/Vol] 109 mmol/L High 98 - 10 8 mmol/L [facility] CO2 [Moles/Vol] 23 mmol/L 21 - 31 mmol/L [facility] Creatinine [Mass/Vol] 1.10 mg/dL 0.70 - 1.30 mg/dL [facility] eGFR, CKD-EPI, Male 81 - PINF [facility] Comment on above: Reported eGFR is bas ed on the CKD-EPI 2020 equation using creatinine, age, and sex. Glucose [Mass/Vol] 84 mg/dL 70 - 99 mg/dL [facility] Interpretation and review of laboratory results Abnormal [facility] Osmolality Calc [Osmolality] 295 [facility] Potassium [Moles/Vol] 4.0 mmol/L 3.5 - 5.0 mmol/L [facility] Sodium [Moles/Vol] 141 mmol/L 135 - 145 mmol/L [facility] Urea nitrogen [Mass/Vol] 16 mg/dL 7 - 25 mg/dL [facility] Urea nitrogen/Creatinine [Mass ratio] 15 mg/mg [facility] MAGNESIUMon 01-22-2024 Interpretation and review of laboratory results Normal [facility] Magnesium [Mass/Vol] 2.0 mg/dL 1.6 - 2 .6 mg/dL [facility] No Panel Informationon 01-22 [facility] PT,INR,PTTon 01-22-2024 aPTT Coag (PPP) [Time] 29.2 s [facility] INR Coag (Bld) [Relative time] 1.1 {INR} 0.9 - 1.1 [facility] Interpretation and review of laboratory results Abnormal [facility] PT Coag (PPP) [Time] 14.[address] [facility] TACROLIMUS LEVEL, TROUGH (PA E DRUG LEVEL)Ordered By: Sheree Jensen on 01-22-2024 Interpretation and review of laboratory results Normal [facility] Tacrolimus (Bld) [Mass/Vol] 7.9 ng/mL Bone Marrow Transplant: 4.0-12.0, Therapeutic: 5.0-15.0 [facility] Method performed is a chemiluminescent microparticle immunoasssay on the [employer] i2000. The range is based on experience at [facility] and users should be aware that target concentrations vary widely depending on concomitant therapy, time post-transplant, and desired degree of immunosuppression. [facility] TYPE AND SCREENon 01-22-2024 ABO/RH(D) TYPE Positive [facility] US Unspecified body regionOr dered By: Unassigned Pacs on 01-22-2024 [facility] Work Phone: Unspecified body regionon 01-22-2024 Radiology Study observation (narrative) [facility] CBC,PLATELETSon 01-21-2024 Erythrocyte distribution width (RBC) [Ratio] 14.0 % 10.9 - 14.3 % [facility] Hematocrit (Bld) [Volume fraction] 39.4 % Low 39.6 - 48.8 % [facility] Hemoglobin (Bld) [Mass/Vol] 12.7 g/dL Low 13.4 - 16.8 g/dL [facility] Interpretation and review of laboratory results Abnormal [facility] MCH (RBC) [Entitic mass] 28.0 pg 26.1 - 33.3 pg [facility] MCHC (RBC) [Mass/Vol] 32.2 g/dL 31.9 - 36.5 g/dL [facility] MCV (RBC) [Entitic vol] 87.0 fL 79.0 - 94.5 fL [facility] Platelet mean volume (Bld) [Entitic vol] 10.2 fL 8.7 - 12.3 fL [facility] Platelets (Bld) [#/Vol] 157 10*3/uL 146 - 337 K/uL [facility] RBC (Bld) [#/Vol] 4.53 10*6/uL [facility] WBC (Bld) [#/Vol] 3.42 10*3/uL Low 3.73 - 10. 10 K/uL [facility] CHEM 7 (LYTES,BUN,CREA,GLUC) on 01-21-2024 Anion gap [Moles/Vol] 12 mmol/L 7 - 17 mmol/L [facility] Chloride [Moles/Vol] 107 mmol/L 98 - 10 8 mmol/L [facility] CO2 [Moles/Vol] 26 mmol/L 21 - 31 mmol/L [facility] Creatinine [Mass/Vol] 1.11 mg/dL 0.70 - 1.30 mg/dL [facility] eGFR, CKD-EPI, Male 80 - PINF [facility] Comment on above: Reported eGFR is bas ed on the CKD-EPI 2020 equation using creatinine, age, and sex. Glucose [Mass/Vol] 93 mg/dL 70 - 99 mg/dL [facility] Osmolality Calc [Osmolality] 295 [facility] Potassium [Moles/Vol] 3.9 mmol/L 3.5 - 5.0 mmol/L [facility] Sodium [Moles/Vol] 141 mmol/L 135 - 145 mmol/L [facility] Urea nitrogen [Mass/Vol] 15 mg/dL 7 - 25 mg/dL [facility] Urea nitrogen/Creatinine [Mass ratio] 14 mg/mg [facility] Cardiac catheterization stud yOrdered By: Kelvin Donohue on 01-21-2024 Body surface area Derived from formula 2.08 m2 [facility] Work Phone: [facility] Work Phone: Cardiac catheterization [...] with fistula occlusion Kelvin Donohue MD, MPH Driver Trainee of Internal Medicine. Section of Advanced Heart Failure and Transplantation Division of Cardiovascular Diseases [facility] [email or web address] 01-21-2024 Interpretation and review of laboratory results Abnormal [facility] Magnesium [Mass/Vol] 1.5 mg/dL Low 1.6 - 2 .6 mg/dL [facility] No Panel Informationon 01-21 [facility] TACROLIMUS LEVEL, TROUGH (PA E DRUG LEVEL)on 01-21-2024 Interpretation and review of laboratory results Normal [facility] Tacrolimus (Bld) [Mass/Vol] 7.2 ng/mL Bone Marrow Transplant: 4.0-12.0, Therapeutic: 5.0-15.0 [facility] Method performed is a chemiluminescent microparticle immunoasssay on the [employer] i2000. The range is based on experience at [facility] and users should be aware that target concentrations vary widely depending on concomitant therapy, time post-transplant, and desired degree of immunosuppression. [facility] CBC,PLATELETSon 01-20-2024 Erythrocyte distribution width (RBC) [Ratio] 13.8 % 10.9 - 14.3 % [facility] Hematocrit (Bld) [Volume fraction] 38.9 % Low 39.6 - 48.8 % [facility] Hemoglobin (Bld) [Mass/Vol] 12.5 g/dL Low 13.4 - 16.8 g/dL [facility] Interpretation and review of laboratory results Abnormal [facility] MCH (RBC) [Entitic mass] 28.0 pg 26.1 - 33.3 pg [facility] MCHC (RBC) [Mass/Vol] 32.1 g/dL 31.9 - 36.5 g/dL [facility] MCV (RBC) [Entitic vol] 87.2 fL 79.0 - 94.5 fL [facility] Platelet mean volume (Bld) [Entitic vol] 10.2 fL 8.7 - 12.3 fL [facility] Platelets (Bld) [#/Vol] 166 10*3/uL 146 - 337 K/uL [facility] RBC (Bld) [#/Vol] 4.46 10*6/uL [facility] WBC (Bld) [#/Vol] 3.79 10*3/uL 3.73 - 10. 10 K/uL [facility] CHEM 7 (LYTES,BUN,CREA,GLUC) on 01-20-2024 Anion gap [Moles/Vol] 12 mmol/L 7 - 17 mmol/L [facility] Chloride [Moles/Vol] 105 mmol/L 98 - 10 8 mmol/L [facility] CO2 [Moles/Vol] 28 mmol/L 21 - 31 mmol/L [facility] Creatinine [Mass/Vol] 1.12 mg/dL 0.70 - 1.30 mg/dL [facility] eGFR, CKD-EPI, Male 79 - PINF [facility] Comment on above: Reported eGFR is bas ed on the CKD-EPI 2020 equation using creatinine, age, and sex. Glucose [Mass/Vol] 88 mg/dL 70 - 99 mg/dL [facility] Osmolality Calc [Osmolality] 294 [facility] Potassium [Moles/Vol] 3.8 mmol/L 3.5 - 5.0 mmol/L [facility] Sodium [Moles/Vol] 141 mmol/L 135 - 145 mmol/L [facility] Urea nitrogen [Mass/Vol] 15 mg/dL 7 - 25 mg/dL [facility] Urea nitrogen/Creatinine [Mass ratio] 13 mg/mg [facility] Cardiac catheterization stud yon 01-20-2024 [facility] Radiology Study observation (narrative) [facility] Radiology Study observation (narrative) [facility] EBV BY PCR, QUANTITATIVE,BLO ODOrdered By: Charlotte Jensen on 01-20-2024 EBV DNA ESTELITA+probe (Unsp spec) [#/Vol] NINF [facility] Interpretation and review of laboratory results Normal [facility] This test was perfor med using a real time PCR assay. The dynamic range for this assay is 1000-5,000,000 IU/mL. A result <1000 IU/mL does not rule out the presence of EBV DNA in quantities below the sensitivity of this assay. This test was developed and its performance characteristics determined by [facility]. It has not been cleared or approved by the FDA. The laboratory is regulated under CLIA as qualified to perform high-complexity testing. This test is used for clinical purposes. It should not be regarded as investigational or for research. [facility] HEPATIC FUNCTION PANELon Albumin [Mass/Vol] 3.7 g/dL 3.5 - 5.0 g/dL [facility] ALP [Catalytic activity/Vol] 73 U/L 32 - 126 U/L [facility] ALT [Catalytic activity/Vol] 12 U/L 10 - 52 U/L [facility] AST [Catalytic activity/Vol] 19 U/L 10 - 39 U/L [facility] Bilirubin [Mass/Vol] 2.1 mg/dL High NINF - 1.5 mg/dL [facility] Bilirubin.direct [Mass/Vol] 0.5 mg/dL High NINF - 0.3 mg/dL [facility] Interpretation and review of laboratory results Abnormal [facility] Protein [Mass/Vol] 6.1 g/dL Low 6.4 - 8.3 g/dL [facility] MAGNESIUMon 01-20-2024 Interpretation and review of laboratory results Normal [facility] Magnesium [Mass/Vol] 1.6 mg/dL 1.6 - 2 .6 mg/dL [facility] No Panel Informationon 01-20 [facility] POCT CO-OXIMETRYon Hemoglobin (Bld) [Mass/Vol] 12.8 g/dL Low 13.4 - 16.8 g/dL [facility] Interpretation and review of laboratory results Abnormal [facility] Oxyhemoglobin 69 % Low 94 - 98 % [facility] Ordering physician notified. Test performed at address of the patient encounter. [facility] Hemoglobin (Bld) [Mass/Vol] 13.3 g/dL Low 13.4 - 16.8 g/dL [facility] Interpretation and review of laboratory results Abnormal [facility] Oxyhemoglobin 69 % Low 94 - 98 % [facility] Ordering physician notified. Test performed at address of the patient encounter. [facility] PT,INR,PTTon 01-20-2024 aPTT Coag (PPP) [Time] 30.6 s [facility] INR Coag (Bld) [Relative time] 1.2 {INR} High 0.9 - 1.1 [facility] Interpretation and review of laboratory results Abnormal [facility] PT Coag (PPP) [Time] 15.[address] [facility] TACROLIMUS LEVEL, TROUGH (PA E DRUG LEVEL)Ordered By: Yanira Marcum on 01-20-2024 Interpretation and review of laboratory results Normal [facility] Tacrolimus (Bld) [Mass/Vol] 7.7 ng/mL Bone Marrow Transplant: 4.0-12.0, Therapeutic: 5.0-15.0 [facility] Method performed is a chemiluminescent microparticle immunoasssay on the [employer]er i2000. The range is based on experience at [facility] and users should be aware that target concentrations vary widely depending on concomitant therapy, time post-transplant, and desired degree of immunosuppression. [facility] CBC,PLATELETSon 01-19-2024 Erythrocyte distribution width (RBC) [Ratio] 13.9 % 10.9 - 14.3 % [facility] Hematocrit (Bld) [Volume fraction] 37.5 % Low 39.6 - 48.8 % [facility] Hemoglobin (Bld) [Mass/Vol] 12.1 g/dL Low 13.4 - 16.8 g/dL [facility] Interpretation and review of laboratory results Abnormal [facility] MCH (RBC) [Entitic mass] 28.3 pg 26.1 - 33.3 pg [facility] MCHC (RBC) [Mass/Vol] 32.3 g/dL 31.9 - 36.5 g/dL [facility] MCV (RBC) [Entitic vol] 87.8 fL 79.0 - 94.5 fL [facility] Platelet mean volume (Bld) [Entitic vol] 10.4 fL 8.7 - 12.3 fL [facility] Platelets (Bld) [#/Vol] 163 10*3/uL 146 - 337 K/uL [facility] RBC (Bld) [#/Vol] 4.27 10*6/uL Low [facility] WBC (Bld) [#/Vol] 3.69 10*3/uL Low 3.73 - 10. 10 K/uL [facility] CHEM 7 (LYTES,BUN,CREA,GLUC) on 01-19-2024 Anion gap [Moles/Vol] 14 mmol/L 7 - 17 mmol/L [facility] Chloride [Moles/Vol] 106 mmol/L 98 - 10 8 mmol/L [facility] CO2 [Moles/Vol] 24 mmol/L 21 - 31 mmol/L [facility] Creatinine [Mass/Vol] 1.13 mg/dL 0.70 - 1.30 mg/dL [facility] eGFR, CKD-EPI, Male 78 - PINF [facility] Comment on above: Reported eGFR is bas ed on the CKD-EPI 2020 equation using creatinine, age, and sex. Glucose [Mass/Vol] 86 mg/dL 70 - 99 mg/dL [facility] Osmolality Calc [Osmolality] 293 [facility] Potassium [Moles/Vol] 3.8 mmol/L 3.5 - 5.0 mmol/L [facility] Sodium [Moles/Vol] 140 mmol/L 135 - 145 mmol/L [facility] Urea nitrogen [Mass/Vol] 16 mg/dL 7 - 25 mg/dL [facility] Urea nitrogen/Creatinine [Mass ratio] 14 mg/mg [facility] HISTOPLASMA AND BLASTOMYCES ANTIGEN, ENZYME IMMUNOASSAY, SERMon 01-19-2024 Histoplasma/Blastomy antonia Ag Result Not detected Not Detected [facility] Comment on above: No antigen from Hist oplasma or Blastomyces detected. False negative results may occur depending on extent of disease, and/or site of infection. Repeat testing on a new specimen if clinically indicated. Histoplasma/Blastomy antonia Ag Value Not detected ng/mL [facility] Comment on above: ADDITIONAL INFORMATION This test was developed and its performance characteristics determined by [facility] in a manner consistent with CLIA requirements. This test has not been cleared or approved by the U.S. Food and Drug Administration. Test Performed by: [facility] [address] [place] [address] Hse Manager: Rosendo Bose M.D. Ph.D.; CLIA# [id number] [facility] MAGNESIUMon 01-19-2024 Interpretation and review of laboratory results Normal [facility] Magnesium [Mass/Vol] 1.8 mg/dL 1.6 - 2 .6 mg/dL [facility] No Panel Informationon 01-19 [facility] TACROLIMUS LEVEL, TROUGH (PA E DRUG LEVEL)Ordered By: Raymundo Mehta on 01-19-2024 Interpretation and review of laboratory results Normal [facility] Tacrolimus (Bld) [Mass/Vol] 6.8 ng/mL Bone Marrow Transplant: 4.0-12.0, Therapeutic: 5.0-15.0 [facility] Method performed is a chemiluminescent microparticle immunoasssay on the [employer] i2000. The range is based on experience at [facility] and users should be aware that target concentrations vary widely depending on concomitant therapy, time post-transplant, and desired degree of immunosuppression. [facility] US AV fistulaOrdered By: Diana Reyes on 01-19-2024 [facility] Work Phone: US AV fistulaon 01-19-2024 Radiology Study observation (narrative) [facility] AFP TUMOR MARKEROrdered By: Francisca Alaniz on 02-19-2024 AFP.tumor marker [Mass/Vol] ng/mL NINF - 8.1 ng/mL [facility] Comment on above: This test was perfor med on the Aud[employer]sey Immunoassay platform by [employer] which is a two-site sandwich chemiluminescent immunoassay. It is important to note that assays using different manufacturers and/or methods may not be comparable. Interpretation and review of laboratory results Normal [facility] CBC,PLATELETSon 01-18-2024 Erythrocyte distribution width (RBC) [Ratio] 13.9 % 10.9 - 14.3 % [facility] Hematocrit (Bld) [Volume fraction] 38.4 % Low 39.6 - 48.8 % [facility] Hemoglobin (Bld) [Mass/Vol] 12.1 g/dL Low 13.4 - 16.8 g/dL [facility] Interpretation and review of laboratory results Abnormal [facility] MCH (RBC) [Entitic mass] 27.8 pg 26.1 - 33.3 pg [facility] MCHC (RBC) [Mass/Vol] 31.5 g/dL Low 31.9 - 36.5 g/dL [facility] MCV (RBC) [Entitic vol] 88.3 fL 79.0 - 94.5 fL [facility] Platelet mean volume (Bld) [Entitic vol] 10.4 fL 8.7 - 12.3 fL [facility] Platelets (Bld) [#/Vol] 183 10*3/uL 146 - 337 K/uL [facility] RBC (Bld) [#/Vol] 4.35 10*6/uL Low [facility] WBC (Bld) [#/Vol] 3.66 10*3/uL Low 3.73 - 10. 10 K/uL [facility] CHEM 7 (LYTES,BUN,CREA,GLUC) on 01-18-2024 Anion gap [Moles/Vol] 11 mmol/L 7 - 17 mmol/L [facility] Chloride [Moles/Vol] 108 mmol/L 98 - 10 8 mmol/L [facility] CO2 [Moles/Vol] 26 mmol/L 21 - 31 mmol/L [facility] Creatinine [Mass/Vol] 1.00 mg/dL 0.70 - 1.30 mg/dL [facility] eGFR, CKD-EPI, Male - PINF [facility] Comment on above: Reported eGFR is bas ed on the CKD-EPI 2020 equation using creatinine, age, and sex. Glucose [Mass/Vol] 89 mg/dL 70 - 99 mg/dL [facility] Osmolality Calc [Osmolality] 295 [facility] Potassium [Moles/Vol] 3.9 mmol/L 3.5 - 5.0 mmol/L [facility] Sodium [Moles/Vol] 141 mmol/L 135 - 145 mmol/L [facility] Urea nitrogen [Mass/Vol] 16 mg/dL 7 - 25 mg/dL [facility] Urea nitrogen/Creatinine [Mass ratio] 16 mg/mg [facility] Cardiac echo study Procedure Ordered By: Gian Carlos on 01-18-2024 Ao ASC index 1.63 cm/m2 [facility] Work Phone: Ao peak meliton 1.46 m/s [facility] Work Phone: Ao SOV index 1.56 cm/m2 [facility] Work Phone: Ao STJ index 1.25 cm/m2 [facility] Work Phone: Ao VTI 35.74 cm [facility] Work Phone: Ascending aorta 3.39 [facility]: AV LVOT peak gradient 4 mmHg [facility] Work Phone: AV mean gradient 5 [facility] peak gradient 9 [facility]HG [facility] Work [facility]: AV valve area 3.09 cm2 [facility] Work [facility]: AV Velocity Ratio 0.73 [facility] Work Phone: VEGA (continuity Vmax) 3.01 cm2 [facility] Work Phone: VEGA (continuity VTI) 3.09 cm2 [facility] Work Phone: VEGA index (continuity Vmax) 1.45 m/s [facility] Work Phone: VEGA index (continuity VTI) 1.49 cm2/m2 [facility] Work Phone: Avg e' pk meliton 0.07 m/s [facility] Work Phone: Avg E/e' ratio 19.45 [facility] Work Phone: Body surface area Derived from formula 2.08 m2 [facility] Work Phone: BP EF 62 % [facility] Work Phone: DI (Vmax) 0.73 [facility] Work Phone: DI (VTI) 0.74 m/2 [facility] Work Phone: E wave decelartion time 180.38 msec [facility] Work Phone: e' lateral pk meliton 0.0789 m/s [facility] Work Phone: e' lateral pk meliton 0.08 m/s [facility] Work Phone: e' septal pk meliton 0.0653 m/s [facility] Work Phone: e' septal pk meliton 0.07 m/s [facility] Work [facility]: E/A ratio 2.67 [facility] Work Phone: E/e' lateral ratio 17.62 [facility] Work Phone: E/e' septal ratio 21.29 [facility] Work Phone: EF SP 2CH 66 [facility] Work Phone: EF SP 4CH 58 [facility] Work Phone: FS 28 % 28 - 44 % [facility] Work Phone: IVC ostium 2.30 cm [facility] Work Phone: IVS 1.11 cm [facility] Work Phone: LA AREA 2CH 24.36 cm2 [facility] Work Phone: LA area 4CH 20.36 cm2 [facility] Work Phone: LA ESV BP (MOD) 64 mL [facility] Work Phone: LA ESV BP (MOD) index 31 mL/m2 [facility] Work Phone: LA ESV SP 2CH (MOD) 76 mL [facility] Work Phone: LA ESV SP 4CH (MOD) 53 mL [facility] Work Phone: LV EDV BP 180 mL [facility] Work Phone: LV EDV SP 2CH 190 mL [facility] Work Phone: LV EDV SP 4CH 166 mL [facility] Work Phone: LV ESV BP 69 mL [facility] Work Phone: LV ESV SP 2CH 65 mL [facility] Work Phone: LV ESV SP 4CH 70 mL [facility] Work Phone: LV mass 254.73 g [facility] Work Phone: LV Mass Index 122.5 g/m2 [facility] Work Phone: LV RWT 0.42 [facility] Work Phone: LV stroke volume BP (ml) 111 mL [facility] Work Phone: LV stroke volume index BP 53.37 mL/m2 [facility] Work Phone: LVIDD 5.53 cm [facility] Work Phone: [phone] LVIDS 3.97 cm [facility] Work Phone: LVOT area 4.15 cm2 [facility] Work Phone: LVOT diameter 2.30 cm [facility] Work Phone: LVOT peak meliton 1.06 m/s [facility] Work Phone: LVOT peak VTI 26.61 cm [facility] Work Phone: LVOT stroke volume 111 cm3 [facility] Work Phone: LVOT stroke volume index 53.13 ml/m2 [facility] Work Phone: Mr max meliton 4.21 m/s [facility] Work Phone: MR VTI 134.50 cm [facility] Work Phone: MV mean gradient 3 mmHg [facility] Work Phone: MV peak gradient 11 [facility] Work Phone: MV pk A meliton 0.52 m/s [facility] Work Phone: MV pk E meliton 1.39 m/s [facility] Work Phone: MV stenosis pressure 1/2 time 58.56 ms [facility] Work Phone: MV valve area by continuity eq 2.93 cm2 [facility] Work Phone: MV valve area p 1/2 method 3.76 cm2 [facility] Work Phone: MV VTI 37.70 cm [facility] Work Phone: MVA (continuity VTI) 2.92 cm [facility] Work Phone: OSU AV VTI RATIO PRE STRESS 0.74 [facility] Work Phone: OSU ECHO LV BIPLANE SYSTOLIC VOLUME INDEX 33.17 mL/m2 [facility] Work Phone: OSU ECHO LV BP DIASTOLIC VOLUME INDEX 86.54 mL/m2 [facility] Work Phone: OSU ECHO MR PEAK GRADIENT 70.94 mmHg [facility] Work Phone: PW 1.16 cm [facility] Work Phone: RA area 4CH (MOD) 14.50 cm2 [facility] Work Phone: RA vol index 4CH (MOD) 18.27 mL/m2 [facility] Work Phone: Right atrium volume 4 chamber method of disks 38 mL [facility] Work Phone: RV Area diastolic 33.20 cm2 [facility] Work Phone: RV Area systolic 21.30 cm2 [facility] Work Phone: RV basal diam 4.52 cm [facility] Work Phone: RV Fractional area change 35.8 % [facility] Work Phone: RV long diam 8.96 cm [facility] Work Phone: RV mid diam 3.70 cm [facility] Work Phone: RV S' 22.01 cm/s [facility] Work Phone: RVOT peak gradient 4 mmHg [facility] Work Phone: RVOT peak meliton 0.96 m/s [facility] Work Phone: RVOT peak VTI 20.86 cm [facility] Work Phone: Sinus 3.24 cm [facility] Work Phone: STJ 2.61 cm [facility] Work Phone: Stroke Volume 111 cm/mL [facility] Work Phone: Stroke volume index 53 [facility] Work Phone: TAPSE 2.19 cm [facility] Work Phone: [facility] Work Phone: Cardiac echo [...] echocardiography study was performed. Imaging system used: HowGood. Indications Indications for study: shortness of breath. [facility] Radiology Study observation (narrative) [facility] HEPATIC FUNCTION PANELon Albumin [Mass/Vol] 3.5 g/dL 3.5 - 5.0 g/dL [facility] ALP [Catalytic activity/Vol] 70 U/L 32 - 126 U/L [facility] ALT [Catalytic activity/Vol] 8 U/L Low 10 - 52 U/L [facility] AST [Catalytic activity/Vol] 20 U/L 10 - 39 U/L [facility] Bilirubin [Mass/Vol] 1.7 mg/dL High NINF - 1.5 mg/dL [facility] Bilirubin.direct [Mass/Vol] 0.4 mg/dL High NINF - 0.3 mg/dL [facility] Protein [Mass/Vol] 6.0 g/dL Low 6.4 - 8.3 g/dL [facility] MAGNESIUMon 01-18-2024 Magnesium [Mass/Vol] 1.5 mg/dL Low 1.6 - 2 .6 mg/dL [facility] No Panel Informationon 01-18 Interpretation and review of laboratory results Abnormal [facility] PT,INR,PTTon 01-18-2024 aPTT Coag (PPP) [Time] 30.0 s [facility] INR Coag (Bld) [Relative time] 1.1 {INR} 0.9 - 1.1 [facility] Interpretation and review of laboratory results Abnormal [facility] PT Coag (PPP) [Time] 14.[address] [facility] TSH W/FT4 REFLEXon Interpretation and review of laboratory results Normal [facility] TSH Qn 2.660 m[IU]/L [facility] DARYL AURIS SCREEN BY PCRO rdered By: Mynor Alejandro on 01-17-2024 Daryl auris Screen by PCR Not detected Not Detected [facility] Interpretation and review of laboratory results Normal [facility] This test was perfor med using a real-time PCR assay. This test was developed, and its performance characteristics determined by [facility] at [facility]. It has not been cleared or approved by the FDA. The laboratory is regulated under CLIA as qualified to perform high-complexity testing. This test is used for clinical purposes. It should not be regarded as investigational or for research. [facility] CBC,PLATELETSon 01-17-2024 Erythrocyte distribution width (RBC) [Ratio] 14.0 % 10.9 - 14.3 % [facility] Hematocrit (Bld) [Volume fraction] 37.2 % Low 39.6 - 48.8 % [facility] Hemoglobin (Bld) [Mass/Vol] 12.0 g/dL Low 13.4 - 16.8 g/dL [facility] Interpretation and review of laboratory results Abnormal [facility] MCH (RBC) [Entitic mass] 27.9 pg 26.1 - 33.3 pg [facility] MCHC (RBC) [Mass/Vol] 32.3 g/dL 31.9 - 36.5 g/dL [facility] MCV (RBC) [Entitic vol] 86.5 fL 79.0 - 94.5 fL [facility] Platelet mean volume (Bld) [Entitic vol] 10.5 fL 8.7 - 12.3 fL [facility] Platelets (Bld) [#/Vol] 159 10*3/uL 146 - 337 K/uL [facility] RBC (Bld) [#/Vol] 4.30 10*6/uL Low [facility] WBC (Bld) [#/Vol] 3.69 10*3/uL Low 3.73 - 10. 10 K/uL [facility] CHEM 7 (LYTES,BUN,CREA,GLUC) on 01-17-2024 Anion gap [Moles/Vol] 13 mmol/L 7 - 17 mmol/L [facility] Chloride [Moles/Vol] 109 mmol/L High 98 - 10 8 mmol/L [facility] CO2 [Moles/Vol] 21 mmol/L 21 - 31 mmol/L [facility] Creatinine [Mass/Vol] 1.04 mg/dL 0.70 - 1.30 mg/dL [facility] eGFR, CKD-EPI, Male 86 - PINF [facility] Comment on above: Reported eGFR is bas ed on the CKD-EPI 2020 equation using creatinine, age, and sex. Glucose [Mass/Vol] 82 mg/dL 70 - 99 mg/dL [facility] Osmolality Calc [Osmolality] 292 [facility] Potassium [Moles/Vol] 4.4 mmol/L 3.5 - 5.0 mmol/L [facility] Sodium [Moles/Vol] 139 mmol/L 135 - 145 mmol/L [facility] Urea nitrogen [Mass/Vol] 17 mg/dL 7 - 25 mg/dL [facility] Urea nitrogen/Creatinine [Mass ratio] 16 mg/mg [facility] CT Abdomen and Pelvis [...] unremarkable. 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 Right lower quadrant [...] unremarkable. 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 Right lower quadrant [...] the middle lobe. Trace left pleural effusion. [facility] Radiology Study observation (narrative) [facility] HEPATIC FUNCTION PANELon Albumin [Mass/Vol] 3.5 g/dL 3.5 - 5.0 g/dL [facility] ALP [Catalytic activity/Vol] 73 U/L 32 - 126 U/L [facility] ALT [Catalytic activity/Vol] 7 U/L Low 10 - 52 U/L [facility] AST [Catalytic activity/Vol] 25 U/L 10 - 39 U/L [facility] Bilirubin [Mass/Vol] 1.8 mg/dL High NINF - 1.5 mg/dL [facility] Bilirubin.direct [Mass/Vol] 0.3 mg/dL High NINF - 0.3 mg/dL [facility] Protein [Mass/Vol] 6.0 g/dL Low 6.4 - 8.3 g/dL [facility] MAGNESIUMon 01-17-2024 Interpretation and review of laboratory results Normal [facility] Magnesium [Mass/Vol] 1.7 mg/dL 1.6 - 2 .6 mg/dL [facility] No Panel Informationon 01-17 Interpretation and review of laboratory results Abnormal [facility] PT,INR,PTTon 01-17-2024 aPTT Coag (PPP) [Time] 29.9 s [facility] INR Coag (Bld) [Relative time] 1.1 {INR} 0.9 - 1.1 [facility] Interpretation and review of laboratory results Abnormal [facility] PT Coag (PPP) [Time] 14.[address] [facility] B-TYPE NATRIURETIC PEPTIDE ( BRAIN)on 01-16-2024 Interpretation and review of laboratory results Abnormal [facility] Natriuretic peptide B (Bld) [Mass/Vol] 212 pg/mL High 0 - 100 pg/mL [facility] CALCIUMon 01-16-2024 Calcium [Mass/Vol] 8.5 mg/dL Low 8.6 - 10. 5 mg/dL [facility] CBC AND ELECTRONIC DIFFon Basophils (Bld) [#/Vol] K/uL 0.00 - 0.09 K/uL [facility] Basophils/100 WBC (Bld) 0.6 % [facility] Differential cell count method Nom (Bld) Electronic Differential [facility] Eosinophils (Bld) [#/Vol] 0.09 10*3/uL 0.00 - 0.48 K/uL [facility] Eosinophils/100 WBC (Bld) 2.5 % [facility] Erythrocyte distribution width (RBC) [Ratio] 14.0 % 10.9 - 14.3 % [facility] Hematocrit (Bld) [Volume fraction] 37.4 % Low 39.6 - 48.8 % [facility] Hemoglobin (Bld) [Mass/Vol] 12.1 g/dL Low 13.4 - 16.8 g/dL [facility] Immature granulocytes (Bld) [#/Vol] K/uL NINF - 0.07 K/uL [facility] Immature granulocytes/100 WBC (Bld) 0.3 % [facility] Interpretation and review of laboratory results Abnormal [facility] Lymphocytes (Bld) [#/Vol] 1.16 10*3/uL 0.83 - 3.57 K/uL [facility] Lymphocytes/100 WBC (Bld) 32.0 % [facility] MCH (RBC) [Entitic mass] 28.4 pg 26.1 - 33.3 pg [facility] MCHC (RBC) [Mass/Vol] 32.4 g/dL 31.9 - 36.5 g/dL [facility] MCV (RBC) [Entitic vol] 87.8 fL 79.0 - 94.5 fL [facility] Monocytes (Bld) [#/Vol] 0.43 10*3/uL 0.24 - 0.93 K/uL [facility] Monocytes/100 WBC (Bld) 11.9 % [facility] Neutrophils (Bld) [#/Vol] 1.91 10*3/uL 1.57 - 6.19 K/uL [facility] Nucleated RBC/100 WBC (Bld) [Ratio] 0.0 % NINF [facility] Platelet mean volume (Bld) [Entitic vol] 10.1 fL 8.7 - 12.3 fL [facility] Platelets (Bld) [#/Vol] 155 10*3/uL 146 - 337 K/uL [facility] RBC (Bld) [#/Vol] 4.26 10*6/uL Low [facility] Segmented neutrophils/100 WBC (Bld) 52.7 % [facility] WBC (Bld) [#/Vol] 3.62 10*3/uL Low 3.73 - 10. 10 K/uL [facility] CHEM 7 (LYTES,BUN,CREA,GLUC) on 01-16-2024 Anion gap [Moles/Vol] 11 mmol/L 7 - 17 mmol/L [facility] Chloride [Moles/Vol] 108 mmol/L 98 - 10 8 mmol/L [facility] CO2 [Moles/Vol] 24 mmol/L 21 - 31 mmol/L [facility] Creatinine [Mass/Vol] 1.04 mg/dL 0.70 - 1.30 mg/dL [facility] eGFR, CKD-EPI, Male 86 - PINF [facility] Comment on above: Reported eGFR is bas ed on the CKD-EPI 2020 equation using creatinine, age, and sex. Glucose [Mass/Vol] 95 mg/dL 70 - 99 mg/dL [facility] Osmolality Calc [Osmolality] 293 [facility] Potassium [Moles/Vol] 4.0 mmol/L 3.5 - 5.0 mmol/L [facility] Sodium [Moles/Vol] 139 mmol/L 135 - 145 mmol/L [facility] Urea nitrogen [Mass/Vol] 19 mg/dL 7 - 25 mg/dL [facility] Urea nitrogen/Creatinine [Mass ratio] 18 mg/mg [facility] D-DIMER,QUANTITATIVEOrdered By: Shaji Kelly on 01-16-2024 Fibrin D-dimer FEU (PPP) [Mass/Vol] 0.67 High NINF [facility] Comment on above: The D-Dimer assay is intended for use in conjuction with a clinical pretest probability (PTP) assessment model to exclude pulmonary embolism (PE) and as an aid in the diagnosis of Deep Vein Thrombosis (DVT) in outpatients suspected of PE or DVT. For the assay in use at [facility] ([facility]), a cutoff of <0.50 mcg/mL has a Negative Predictive Value of 99.7% for exclusion of DVT in low and moderate PTP patients. Interpretation and review of laboratory results Abnormal [facility] HEPATIC FUNCTION PANELon Albumin [Mass/Vol] 3.7 g/dL 3.5 - 5.0 g/dL [facility] ALP [Catalytic activity/Vol] 70 U/L 32 - 126 U/L [facility] ALT [Catalytic activity/Vol] 8 U/L Low 10 - 52 U/L [facility] AST [Catalytic activity/Vol] 21 U/L 10 - 39 U/L [facility] Bilirubin [Mass/Vol] 1.9 mg/dL High NINF - 1.5 mg/dL [facility] Bilirubin.direct [Mass/Vol] 0.4 mg/dL High NINF - 0.3 mg/dL [facility] Protein [Mass/Vol] 6.1 g/dL Low 6.4 - 8.3 g/dL [facility] MAGNESIUMon 01-16-2024 Magnesium [Mass/Vol] 1.7 mg/dL 1.6 - 2 .6 mg/dL [facility] No Panel Informationon 01-16 Interpretation and review of laboratory results Abnormal [facility] Interpretation and review of laboratory results Normal [facility] PHOSPHATE, INORGANICon 01-16 Phosphate [Mass/Vol] 4.1 mg/dL 2.2 - 4 .6 mg/dL [facility] PT,INR,PTTon 01-16-2024 aPTT Coag (PPP) [Time] 29.6 s [facility] INR Coag (Bld) [Relative time] 1.2 {INR} High 0.9 - 1.1 [facility] Interpretation and review of laboratory results Abnormal [facility] PT Coag (PPP) [Time] 14.[address] [facility] TACROLIMUS LEVEL, TROUGH (PA E DRUG LEVEL)Ordered By: Jimy Castillo on 01-16-2024 Interpretation and review of laboratory results Normal [facility] Tacrolimus (Bld) [Mass/Vol] 5.7 ng/mL Bone Marrow Transplant: 4.0-12.0, Therapeutic: 5.0-15.0 [facility] Method performed is a chemiluminescent microparticle immunoasssay on the [employer] P[employer]er i2000. The range is based on experience at [facility] and users should be aware that target concentrations vary widely depending on concomitant therapy, time post-transplant, and desired degree of immunosuppression. [facility] US.doppler Abdominal vessels on 01-16-2024 [...] pleural effusion. Trace right upper quadrant ascites. [facility] Rad[facility]narrative[facility] Ordered By: Iona Duran on 01-16-2024 [facility] Work Phone: XR Chest PA [...] Normal IMPRESSION IMPRESSION: Moderate right pleural effusion. [facility] Radiology Study observation (narrative) [facility] XR Chest PA and LateralOrder ed By: Daisha Patterson on 01-16-2024 [facility] Work Phone: ALL CBC WITH AUTO DIFFon BASOPHILS ABSOLUTE AUTO 0.0 [facility] Basophils/100 WBC (Bld) 0.5 % 0.2 - 2.0 % [facility] Eosinophils/100 WBC (Bld) 2.8 % 0.9 - 7.0 % [facility] Erythrocyte distribution width (RBC) [Ratio] 13.8 % 11.0 - 15.0 % [facility] Hematocrit (Bld) [Volume fraction] 43.7 % 42.0 - 54.0 % [facility] Hemoglobin (Bld) [Mass/Vol] 14.0 g/dL 14.0 - 18.0 g/dL [facility] IMMATURE GRANULOCYTES ABS AUTO 0.01 [facility] Immature granulocytes/100 WBC (Bld) 0.3 % 0.0 - 0.5 % [facility] LYMPHOCYTES ABSOLUTE AUTO 1.5 [facility] Lymphocytes/100 WBC (Bld) 37.5 % 20.5 - 60.0 % [facility] MCH (RBC) [Entitic mass] 28.4 pg 25.9 - 34.0 pg [facility] MCHC (RBC) [Mass/Vol] 32.0 g/dL 29.9 - 35.2 g/dL [facility] MCV (RBC) [Entitic vol] 88.6 fL 80.0 - 94.0 fL [facility] MONOCYTES ABSOLUTE AUTO 0.5 [facility] Monocytes/100 WBC (Bld) 11.9 % 1.7 - 12.0 % [facility] NEUTROPHILS ABSOLUTE AUTO 1.9 [facility] Neutrophils/100 WBC (Bld) 47.0 % 43.0 - 75.0 % [facility] Platelet mean volume (Bld) [Entitic vol] 10.3 fL 9.5 - 13.5 fL [facility] EO # 0.1 [facility] PLT 180 [facility] TB RBC 4.93 [facility] WBC 4.0 [facility] ALL CBC WITH AUTO DIFFon BASOPHILS ABSOLUTE AUTO 0.0 [facility] Basophils/100 WBC (Bld) 0.5 % 0.2 - 2.0 % [facility] Eosinophils/100 WBC (Bld) 2.6 % 0.9 - 7.0 % [facility] Erythrocyte distribution width (RBC) [Ratio] 13.5 % 11.0 - 15.0 % [facility] Hematocrit (Bld) [Volume fraction] 43.8 % 42.0 - 54.0 % [facility] Hemoglobin (Bld) [Mass/Vol] 14.0 g/dL 14.0 - 18.0 g/dL [facility] IMMATURE GRANULOCYTES ABS AUTO 0.00 [facility] Immature granulocytes/100 WBC (Bld) 0.0 % 0.0 - 0.5 % [facility] Interpretation and review of laboratory results Abnormal [facility] LYMPHOCYTES ABSOLUTE AUTO 1.8 [facility] Lymphocytes/100 WBC (Bld) 45.2 % 20.5 - 60.0 % [facility] MCH (RBC) [Entitic mass] 27.9 pg 25.9 - 34.0 pg [facility] MCHC (RBC) [Mass/Vol] 32.0 g/dL 29.9 - 35.2 g/dL [facility] MCV (RBC) [Entitic vol] 87.4 fL 80.0 - 94.0 fL [facility] MONOCYTES ABSOLUTE AUTO 0.4 [facility] Monocytes/100 WBC (Bld) 9.6 % 1.7 - 12.0 % [facility] NEUTROPHILS ABSOLUTE AUTO 1.6 [facility] Neutrophils/100 WBC (Bld) 42.1 % Low 43.0 - 75.0 % [facility] Platelet mean volume (Bld) [Entitic vol] 9.8 fL 9.5 - 13.5 fL [facility] EO # 0.1 [facility] PLT 180 [facility] RBC 5.01 [facility] WBC 3.9 Low [facility] CHEM 7 (LYTES,BUN,CREA,GLUC) on 09-11-2023 Anion gap [Moles/Vol] 13 mmol/L 7 - 17 mmol/L [facility] Chloride [Moles/Vol] 111 mmol/L High 98 - 10 8 mmol/L [facility] CO2 [Moles/Vol] 20 mmol/L Low 21 - 31 mmol/L [facility] Creatinine [Mass/Vol] 1.13 mg/dL 0.70 - 1.30 mg/dL [facility] eGFR, CKD-EPI, Male 78 - PINF [facility] Glucose [Mass/Vol] 109 mg/dL High 70 - 99 mg/dL [facility] Interpretation and review of laboratory results Abnormal [facility] Osmolality Calc [Osmolality] 295 [facility] Potassium [Moles/Vol] 4.3 mmol/L 3.5 - 5.0 mmol/L [facility] Sodium [Moles/Vol] 140 mmol/L 135 - 145 mmol/L [facility] Urea nitrogen [Mass/Vol] 16 mg/dL 7 - 25 mg/dL [facility] Urea nitrogen/Creatinine [Mass ratio] 14 mg/mg [facility] GLUCOSE POCon 09-11-2023 Glucose [Mass/Vol] 108 mg/dL High 70 - 99 mg/dL [facility] Interpretation and review of laboratory results Abnormal [facility] POC Sample Type CAPBL [facility] Legionella sp identified Org specific cx Nom (Unsp spec)on 09-11-2023 Bacteria identified Cx Nom (Unsp spec) NO GROWTH DAY 7 OF 7 [facility] MAGNESIUMon 09-11-2023 Interpretation and review of laboratory results Normal [facility] Magnesium [Mass/Vol] 1.6 mg/dL 1.6 - 2 .6 mg/dL [facility] No Panel Informationon 09-11 [facility] TACROLIMUS LEVEL, TROUGH (PA E DRUG LEVEL)on 09-11-2023 Interpretation and review of laboratory results Normal [facility] Tacrolimus (Bld) [Mass/Vol] 11.5 ng/mL [facility] CBC,PLATELETSon 09-10-2023 Erythrocyte distribution width (RBC) [Ratio] 13.9 % 10.9 - 14.3 % [facility] Hematocrit (Bld) [Volume fraction] 40.0 % 39.6 - 48.8 % [facility] Hemoglobin (Bld) [Mass/Vol] 12.7 g/dL Low 13.4 - 16.8 g/dL [facility] Interpretation and review of laboratory results Abnormal [facility] MCH (RBC) [Entitic mass] 27.3 pg 26.1 - 33.3 pg [facility] MCHC (RBC) [Mass/Vol] 31.8 g/dL Low 31.9 - 36.5 g/dL [facility] MCV (RBC) [Entitic vol] 86.0 fL 79.0 - 94.5 fL [facility] Platelet mean volume (Bld) [Entitic vol] 9.5 fL 8.7 - 12.3 fL [facility] Platelets (Bld) [#/Vol] 225 10*3/uL 146 - 337 K/uL [facility] RBC (Bld) [#/Vol] 4.65 10*6/uL [facility] WBC (Bld) [#/Vol] 6.52 10*3/uL 3.73 - 10. 10 K/uL [facility] CHEM 7 (LYTES,BUN,CREA,GLUC) on 09-10-2023 Anion gap [Moles/Vol] 13 mmol/L 7 - 17 mmol/L [facility] Chloride [Moles/Vol] 111 mmol/L High 98 - 10 8 mmol/L [facility] CO2 [Moles/Vol] 20 mmol/L Low 21 - 31 mmol/L [facility] Creatinine [Mass/Vol] 1.27 mg/dL 0.70 - 1.30 mg/dL [facility] eGFR, CKD-EPI, Male 69 - PINF [facility] Glucose [Mass/Vol] 100 mg/dL High 70 - 99 mg/dL [facility] Osmolality Calc [Osmolality] 293 [facility] Potassium [Moles/Vol] 4.4 mmol/L 3.5 - 5.0 mmol/L [facility] Sodium [Moles/Vol] 140 mmol/L 135 - 145 mmol/L [facility] Urea nitrogen [Mass/Vol] 12 mg/dL 7 - 25 mg/dL [facility] Urea nitrogen/Creatinine [Mass ratio] 9 mg/mg [facility] HEPATIC FUNCTION PANELon Albumin [Mass/Vol] 3.3 g/dL Low 3.5 - 5.0 g/dL [facility] ALP [Catalytic activity/Vol] 143 U/L High 32 - 126 U/L [facility] ALT [Catalytic activity/Vol] 28 U/L 10 - 52 U/L [facility] AST [Catalytic activity/Vol] 29 U/L 10 - 39 U/L [facility] Bilirubin [Mass/Vol] [facility].9 [facility] Bilirubin.direct [Mass/Vol] 0.2 mg[facility]dL [facility] mg/dL [facility] Protein [Mass/Vol] 6.8 g/dL 6.4 - 8.3 g/dL [facility] MAGNESIUMon 09-10-2023 Interpretation and review of laboratory results Normal [facility] Magnesium [Mass/Vol] 1.9 mg/dL 1.6 - 2 .6 mg/dL [facility] No Panel Informationon 09-10 Interpretation and review of laboratory results Abnormal [facility] TACROLIMUS LEVEL, TROUGH (PA E DRUG LEVEL)Ordered By: Jimy Castillo on 09-10-2023 Interpretation and review of laboratory results Normal [facility] Tacrolimus (Bld) [Mass/Vol] 11.8 ng/mL [facility] CHEM 7 (LYTES,BUN,CREA,GLUC) on 09-09-2023 Anion gap [Moles/Vol] 14 mmol/L 7 - 17 mmol/L [facility] Chloride [Moles/Vol] 113 mmol/L High 98 - 10 8 mmol/L [facility] CO2 [Moles/Vol] 18 mmol/L Low 21 - 31 mmol/L [facility] Creatinine [Mass/Vol] 1.03 mg/dL 0.70 - 1.30 mg/dL [facility] eGFR, CKD-EPI, Male 87 - PINF [facility] Glucose [Mass/Vol] 106 mg/dL High 70 - 99 mg/dL [facility] Interpretation and review of laboratory results Abnormal [facility] Osmolality Calc [Osmolality] 294 [facility] Potassium [Moles/Vol] 4.0 mmol/L 3.5 - 5.0 mmol/L [facility] Sodium [Moles/Vol] 141 mmol/L 135 - 145 mmol/L [facility] Urea nitrogen [Mass/Vol] 10 mg/dL 7 - 25 mg/dL [facility] Urea nitrogen/Creatinine [Mass ratio] 10 mg/mg [facility] MAGNESIUMon 09-09-2023 Magnesium [Mass/Vol] 1.6 mg/dL 1.6 - 2 .6 mg/dL [facility] No Panel Informationon 09-09 Interpretation and review of laboratory results Normal [facility] PHOSPHATE, INORGANICon 09-09 Phosphate [Mass/Vol] 3.8 mg/dL 2.2 - 4 .6 mg/dL [facility] TACROLIMUS LEVEL, TROUGH (PA E DRUG LEVEL)on 09-09-2023 Interpretation and review of laboratory results Normal [facility] Tacrolimus (Bld) [Mass/Vol] 9.2 ng/mL [facility] CBC,PLATELETSon 09-08-2023 Erythrocyte distribution width (RBC) [Ratio] 13.6 % 10.9 - 14.3 % [facility] Hematocrit (Bld) [Volume fraction] 36.1 % Low 39.6 - 48.8 % [facility] Hemoglobin (Bld) [Mass/Vol] 11.6 g/dL Low 13.4 - 16.8 g/dL [facility] Interpretation and review of laboratory results Abnormal [facility] MCH (RBC) [Entitic mass] 27.4 pg 26.1 - 33.3 pg [facility] MCHC (RBC) [Mass/Vol] 32.1 g/dL 31.9 - 36.5 g/dL [facility] MCV (RBC) [Entitic vol] 85.1 fL 79.0 - 94.5 fL [facility] Platelet mean volume (Bld) [Entitic vol] 9.5 fL 8.7 - 12.3 fL [facility] Platelets (Bld) [#/Vol] 182 10*3/uL 146 - 337 K/uL [facility] RBC (Bld) [#/Vol] 4.24 10*6/uL Low [facility] WBC (Bld) [#/Vol] 4.59 10*3/uL 3.73 - 10. 10 K/uL [facility] CHEM 7 (LYTES,BUN,CREA,GLUC) on 09-08-2023 Anion gap [Moles/Vol] 12 mmol/L 7 - 17 mmol/L [facility] Chloride [Moles/Vol] 113 mmol/L High 98 - 10 8 mmol/L [facility] CO2 [Moles/Vol] 21 mmol/L 21 - 31 mmol/L [facility] Creatinine [Mass/Vol] 1.14 mg/dL 0.70 - 1.30 mg/dL [facility] eGFR, CKD-EPI, Male 77 - PINF [facility] Glucose [Mass/Vol] 107 mg/dL High 70 - 99 mg/dL [facility] Osmolality Calc [Osmolality] 296 [facility] Potassium [Moles/Vol] 3.9 mmol/L 3.5 - 5.0 mmol/L [facility] Sodium [Moles/Vol] 142 mmol/L 135 - 145 mmol/L [facility] Urea nitrogen [Mass/Vol] 11 mg/dL 7 - 25 mg/dL [facility] Urea nitrogen/Creatinine [Mass ratio] 10 mg/mg [facility] HEPATIC FUNCTION PANELon Albumin [Mass/Vol] 2.9 g/dL Low 3.5 - 5.0 g/dL [facility] ALP [Catalytic activity/Vol] 133 U/L High 32 - 126 U/L [facility] ALT [Catalytic activity/Vol] 23 U/L 10 - 52 U/L [facility] AST [Catalytic activity/Vol] 23 U/L 10 - 39 U/L [facility] Bilirubin [Mass/Vol] 0.8 mg/dL NINF - 1.5 mg/dL [facility] Bilirubin.direct [Mass/Vol] 0.2 mg/dL NINF - 0.3 mg/dL [facility] Protein [Mass/Vol] 5.9 g/dL Low 6.4 - 8.3 g/dL [facility] MAGNESIUMon 09-08-2023 Interpretation and review of laboratory results Normal [facility] Magnesium [Mass/Vol] 1.8 mg/dL 1.6 - 2 .6 mg/dL [facility] No Panel Informationon 09-08 Interpretation and review of laboratory results Abnormal [facility] PHOSPHATE, INORGANICon 09-08 Interpretation and review of laboratory results Normal [facility] Phosphate [Mass/Vol] 4.1 mg/dL 2.2 - 4 .6 mg/dL [facility] TACROLIMUS LEVEL, TROUGH (PA E DRUG LEVEL)on 09-08-2023 Interpretation and review of laboratory results Normal [facility] Tacrolimus (Bld) [Mass/Vol] 8.5 ng/mL [facility] CBC,PLATELETSon 09-07-2023 Erythrocyte distribution width (RBC) [Ratio] 13.5 % 10.9 - 14.3 % [facility] Hematocrit (Bld) [Volume fraction] 37.1 % Low 39.6 - 48.8 % [facility] Hemoglobin (Bld) [Mass/Vol] 11.9 g/dL Low 13.4 - 16.8 g/dL [facility] Interpretation and review of laboratory results Abnormal [facility] MCH (RBC) [Entitic mass] 27.7 pg 26.1 - 33.3 pg [facility] MCHC (RBC) [Mass/Vol] 32.1 g/dL 31.9 - 36.5 g/dL [facility] MCV (RBC) [Entitic vol] 86.5 fL 79.0 - 94.5 fL [facility] Platelet mean volume (Bld) [Entitic vol] 9.6 fL 8.7 - 12.3 fL [facility] Platelets (Bld) [#/Vol] 176 10*3/uL 146 - 337 K/uL [facility] RBC (Bld) [#/Vol] 4.29 10*6/uL Low [facility] WBC (Bld) [#/Vol] 4.10 10*3/uL 3.73 - 10. 10 K/uL [facility] CHEM 7 (LYTES,BUN,CREA,GLUC) on 09-07-2023 Anion gap [Moles/Vol] 13 mmol/L 7 - 17 mmol/L [facility] Chloride [Moles/Vol] 113 mmol/L High 98 - 10 8 mmol/L [facility] CO2 [Moles/Vol] 19 mmol/L Low 21 - 31 mmol/L [facility] Creatinine [Mass/Vol] 1.22 mg/dL 0.70 - 1.30 mg/dL [facility] eGFR, CKD-EPI, Male 72 - PINF [facility] Glucose [Mass/Vol] 107 mg/dL High 70 - 99 mg/dL [facility] Osmolality Calc [Osmolality] 295 [facility] Potassium [Moles/Vol] 3.9 mmol/L 3.5 - 5.0 mmol/L [facility] Sodium [Moles/Vol] 141 mmol/L 135 - 145 mmol/L [facility] Urea nitrogen [Mass/Vol] 13 mg/dL 7 - 25 mg/dL [facility] Urea nitrogen/Creatinine [Mass ratio] 11 mg/mg [facility] HEPATIC FUNCTION PANELon Albumin [Mass/Vol] 2.9 g/dL Low 3.5 - 5.0 g/dL [facility] ALP [Catalytic activity/Vol] 111 U/L 32 - 126 U/L [facility] ALT [Catalytic activity/Vol] 18 U/L 10 - 52 U/L [facility] AST [Catalytic activity/Vol] 23 U/L 10 - 39 U/L [facility] Bilirubin [Mass/Vol] 0.8 mg/dL NINF - 1.5 mg/dL [facility] Bilirubin.direct [Mass/Vol] 0.3 mg/dL High NINF - 0.3 mg/dL [facility] Protein [Mass/Vol] 6.0 g/dL Low 6.4 - 8.3 g/dL [facility] MAGNESIUMon 09-07-2023 Interpretation and review of laboratory results Normal [facility] Magnesium [Mass/Vol] 1.7 mg/dL 1.6 - 2 .6 mg/dL [facility] No Panel Informationon 09-07 Interpretation and review of laboratory results Abnormal [facility] PHOSPHATE, INORGANICon 09-07 Interpretation and review of laboratory results Normal [facility] Phosphate [Mass/Vol] 4.4 mg/dL 2.2 - 4 .6 mg/dL [facility] TACROLIMUS LEVEL, TROUGH (PA E DRUG LEVEL)Ordered By: Elizabeth Maldonado on 09-07-2023 Interpretation and review of laboratory results Normal [facility] Tacrolimus (Bld) [Mass/Vol] 7.8 ng/mL [facility] CBC,PLATELETSon 09-06-2023 Erythrocyte distribution width (RBC) [Ratio] 13.4 % 10.9 - 14.3 % [facility] Hematocrit (Bld) [Volume fraction] 38.4 % Low 39.6 - 48.8 % [facility] Hemoglobin (Bld) [Mass/Vol] 11.9 g/dL Low 13.4 - 16.8 g/dL [facility] Interpretation and review of laboratory results Abnormal [facility] MCH (RBC) [Entitic mass] 26.6 pg 26.1 - 33.3 pg [facility] MCHC (RBC) [Mass/Vol] 31.0 g/dL Low 31.9 - 36.5 g/dL [facility] MCV (RBC) [Entitic vol] 85.9 fL 79.0 - 94.5 fL [facility] Platelet mean volume (Bld) [Entitic vol] 9.7 fL 8.7 - 12.3 fL [facility] Platelets (Bld) [#/Vol] 181 10*3/uL 146 - 337 K/uL [facility] RBC (Bld) [#/Vol] 4.47 10*6/uL [facility] WBC (Bld) [#/Vol] 4.41 10*3/uL 3.73 - 10. 10 K/uL [facility] CHEM 7 (LYTES,BUN,CREA,GLUC) on 09-06-2023 Anion gap [Moles/Vol] 14 mmol/L 7 - 17 mmol/L [facility] Chloride [Moles/Vol] 109 mmol/L High 98 - 10 8 mmol/L [facility] CO2 [Moles/Vol] 19 mmol/L Low 21 - 31 mmol/L [facility] Creatinine [Mass/Vol] 1.26 mg/dL 0.70 - 1.30 mg/dL [facility] eGFR, CKD-EPI, Male 69 - PINF [facility] Glucose [Mass/Vol] 114 mg/dL High 70 - 99 mg/dL [facility] Osmolality Calc [Osmolality] 291 [facility] Potassium [Moles/Vol] 4.1 mmol/L 3.5 - 5.0 mmol/L [facility] Sodium [Moles/Vol] 138 mmol/L 135 - 145 mmol/L [facility] Urea nitrogen [Mass/Vol] 16 mg/dL 7 - 25 mg/dL [facility] Urea nitrogen/Creatinine [Mass ratio] 13 mg/mg [facility] HEPATIC FUNCTION PANELon Albumin [Mass/Vol] 3.0 g/dL Low 3.5 - 5.0 g/dL [facility] ALP [Catalytic activity/Vol] 115 U/L 32 - 126 U/L [facility] ALT [Catalytic activity/Vol] 25 U/L 10 - 52 U/L [facility] AST [Catalytic activity/Vol] 31 U/L 10 - 39 U/L [facility] Bilirubin [Mass/Vol] 1.0 mg/dL NINF - 1.5 mg/dL [facility] Bilirubin.direct [Mass/Vol] 0.3 mg/dL High NINF - 0.3 mg/dL [facility] Protein [Mass/Vol] 6.3 g/dL Low 6.4 - 8.3 g/dL [facility] MAGNESIUMon 09-06-2023 Interpretation and review of laboratory results Normal [facility] Magnesium [Mass/Vol] 2.0 mg/dL 1.6 - 2 .6 mg/dL [facility] No Panel Informationon 09-06 Interpretation and review of laboratory results Abnormal [facility] TACROLIMUS LEVEL, TROUGH (PA E DRUG LEVEL)on 09-06-2023 Interpretation and review of laboratory results Normal [facility] Tacrolimus (Bld) [Mass/Vol] 6.7 ng/mL [facility] CBC,PLATELETSon 09-05-2023 Erythrocyte distribution width (RBC) [Ratio] 13.5 % 10.9 - 14.3 % [facility] Hematocrit (Bld) [Volume fraction] 35.6 % Low 39.6 - 48.8 % [facility] Hemoglobin (Bld) [Mass/Vol] 11.4 g/dL Low 13.4 - 16.8 g/dL [facility] Interpretation and review of laboratory results Abnormal [facility] MCH (RBC) [Entitic mass] 27.5 pg 26.1 - 33.3 pg [facility] MCHC (RBC) [Mass/Vol] 32.0 g/dL 31.9 - 36.5 g/dL [facility] MCV (RBC) [Entitic vol] 86.0 fL 79.0 - 94.5 fL [facility] Platelet mean volume (Bld) [Entitic vol] 10.0 fL 8.7 - 12.3 fL [facility] Platelets (Bld) [#/Vol] 170 10*3/uL 146 - 337 K/uL [facility] RBC (Bld) [#/Vol] 4.14 10*6/uL Low [facility] WBC (Bld) [#/Vol] 4.24 10*3/uL 3.73 - 10. 10 K/uL [facility] CHEM 7 (LYTES,BUN,CREA,GLUC) on 09-05-2023 Anion gap [Moles/Vol] 12 mmol/L 7 - 17 mmol/L [facility] Chloride [Moles/Vol] 107 mmol/L 98 - 10 8 mmol/L [facility] CO2 [Moles/Vol] 20 mmol/L Low 21 - 31 mmol/L [facility] Creatinine [Mass/Vol] 1.43 mg/dL High 0.70 - 1.30 mg/dL [facility] eGFR, CKD-EPI, Male 60 Low - PINF [facility] Glucose [Mass/Vol] 111 mg/dL High 70 - 99 mg/dL [facility] Osmolality Calc [Osmolality] 286 [facility] Potassium [Moles/Vol] 4.2 mmol/L 3.5 - 5.0 mmol/L [facility] Sodium [Moles/Vol] 135 mmol/L 135 - 145 mmol/L [facility] Urea nitrogen [Mass/Vol] 18 mg/dL 7 - 25 mg/dL [facility] Urea nitrogen/Creatinine [Mass ratio] 13 mg/mg [facility] CONTINUOUS CARDIAC MONITORIN G STRIPon 09-05-2023 [facility] HEPATIC FUNCTION PANELon Albumin [Mass/Vol] 2.8 g/dL Low 3.5 - 5.0 g/dL [facility] ALP [Catalytic activity/Vol] 103 U/L 32 - 126 U/L [facility] ALT [Catalytic activity/Vol] 26 U/L 10 - 52 U/L [facility] AST [Catalytic activity/Vol] 38 U/L 10 - 39 U/L [facility] Bilirubin [Mass/Vol] 0.9 mg/dL NINF - 1.5 mg/dL [facility] Bilirubin.direct [Mass/Vol] 0.1 mg/dL NINF - 0.3 mg/dL [facility] [facility] Protein [Mass/Vol] 6.1 g/dL Low 6.4 - 8.3 g/dL [facility] HISTOPLASMA ANTIGEN, FLUIDon 09-05-2023 FH SOURCE BAL RML [facility] Histo FLD interpretation Negative [facility] Histoplasma Antigen, FLUID Not detected ng/mL [facility] HISTOPLASMA CAPSULATUM/BLAST OMYCES SPECIES,[facility]O/BLASTO RESULT Negative Not Applicable [facility] Specimen source Nom (Unsp spec) BAL RML [facility] IMMUNOPHENOTYPING, TISSUE/FL UIDon 09-05-2023 BKR DX CODE Use Ordering [facility] Flow Interpretation See Comment [facility] Flow Interpreted by: Yossi Perla MD, PhD [facility] MAGNESIUMon 09-05-2023 Interpretation and review of laboratory results Normal [facility] Magnesium [Mass/Vol] 1.7 mg/dL 1.6 - 2 .6 mg/dL [facility] No Panel Informationon 09-05 Interpretation and review of laboratory results Abnormal [facility] TACROLIMUS LEVEL, TROUGH (PA E DRUG LEVEL)Ordered By: Raymundo Mehta on 09-05-2023 Interpretation and review of laboratory results Normal [facility] Tacrolimus (Bld) [Mass/Vol] 5.3 ng/mL [facility] ARTERIAL BLOOD GAS (FULL GOSS EL)on 09-04-2023 Base excess Calc (Bld) [Moles/Vol] -1.2000 mmol/L -3.0 - 3.0 mmol/L [facility] Calcium.ionized (Bld) [Mass/Vol] 4.79 mg/dL 4.60 - 5.30 mg/dL [facility] Carboxyhemoglobin (Bld) [Mass fraction] 0.7 % NINF - 1.5 % [facility] CO2 (Bld) [Partial pressure] 30 mm[Hg] Low [facility] Glucose [Mass/Vol] 159 mg/dL High 70 - 99 mg/dL [facility] HCO3 (Bld) [Moles/Vol] 22 mmol/L 22 - 28 mmol/L [facility] Hematocrit (Bld) [Volume fraction] 38.0 % Low 40.2 - 50.4 % [facility] Hemoglobin (Bld) [Mass/Vol] 12.6 g/dL Low 13.4 - 16.8 g/dL [facility] Interpretation and review of laboratory results Abnormal [facility] Lactate [Moles/Vol] 2.0 mmol/L High 0.5 - 1. 6 mmol/L [facility] Methemoglobin (Bld) [Mass fraction] 0.0 % NINF - 1.5 % [facility] Oxygen (Bld) [Partial pressure] 62 mm[Hg] Low [facility] Oxygen saturation in Blood 92 % Low 94 - 98 % [facility] Oxyhemoglobin 91 % Low 94 - 98 % [facility] pH (Bld) 7.48 [pH] High 7.35 - 7.45 [facility] Potassium [Moles/Vol] 4.2 mmol/L 3.5 - 5.0 mmol/L [facility] Sodium [Moles/Vol] 130 mmol/L Low 135 - 145 mmol/L [facility] Specimen source Nom (Unsp spec) Arterial [facility] Bacteria identified Respirat ory culture Nom (Unsp spec)on 09-04-2023 Bacteria identified Cx Nom (Unsp spec) NO GROWTH DAY 2 OF 2 [facility] Microscopic observation Other stain Nom (Unsp spec) Cytocentrifuge preparation [facility] Microscopic observation Other stain Nom (Unsp spec) Neutrophils, Rare [facility] Microscopic observation Other stain Nom (Unsp spec) Red Blood Cells Present [facility] Microscopic observation Other stain Nom (Unsp spec) No organisms seen [facility] Bacteria identified Respirat ory culture Nom (Unsp spec)Ordered By: Jose Salgado on 09-04-2023 Bacteria identified Cx Nom (Unsp spec) NO GROWTH DAY 2 OF 2 [facility] Microscopic observation Other stain Nom (Unsp spec) Cytocentrifuge preparation [facility] Microscopic observation Other stain Nom (Unsp spec) Neutrophils, Moderate [facility] Microscopic observation Other stain Nom (Unsp spec) Red Blood Cells Present [facility] Microscopic observation Other stain Nom (Unsp spec) No organisms seen [facility] CBC,PLATELETSon 09-04-2023 Erythrocyte distribution width (RBC) [Ratio] 13.2 % 10.9 - 14.3 % [facility] Hematocrit (Bld) [Volume fraction] 38.7 % Low 39.6 - 48.8 % [facility] Hemoglobin (Bld) [Mass/Vol] 12.3 g/dL Low 13.4 - 16.8 g/dL [facility] Interpretation and review of laboratory results Abnormal [facility] MCH (RBC) [Entitic mass] 27.9 pg 26.1 - 33.3 pg [facility] MCHC (RBC) [Mass/Vol] 31.8 g/dL Low 31.9 - 36.5 g/dL [facility] MCV (RBC) [Entitic vol] 87.8 fL 79.0 - 94.5 fL [facility] Platelet mean volume (Bld) [Entitic vol] 9.8 fL 8.7 - 12.3 fL [facility] Platelets (Bld) [#/Vol] 173 10*3/uL 146 - 337 K/uL [facility] RBC (Bld) [#/Vol] 4.41 10*6/uL [facility] WBC (Bld) [#/Vol] 4.57 10*3/uL 3.73 - 10. 10 K/uL [facility] CHEM 7 (LYTES,BUN,CREA,GLUC) on 09-04-2023 Anion gap [Moles/Vol] 16 mmol/L 7 - 17 mmol/L [facility] Chloride [Moles/Vol] 104 mmol/L 98 - 10 8 mmol/L [facility] CO2 [Moles/Vol] 18 mmol/L Low 21 - 31 mmol/L [facility] Creatinine [Mass/Vol] 1.22 mg/dL 0.70 - 1.30 mg/dL [facility] eGFR, CKD-EPI, Male 71 - PINF [facility] Glucose [Mass/Vol] 124 mg/dL High 70 - 99 mg/dL [facility] Osmolality Calc [Osmolality] 284 [facility] Potassium [Moles/Vol] 3.9 mmol/L 3.5 - 5.0 mmol/L [facility] Sodium [Moles/Vol] 134 mmol/L Low 135 - 145 mmol/L [facility] Urea nitrogen [Mass/Vol] 15 mg/dL 7 - 25 mg/dL [facility] Urea nitrogen/Creatinine [Mass ratio] 12 mg/mg [facility] CMV PCR,FLUIDS,URINE,EYE ETC on 09-04-2023 Specimen source Nom (Unsp spec) BAL LLL [facility] Specimen source Nom (Unsp spec) BAL RML [facility] HEPATIC FUNCTION PANELon Albumin [Mass/Vol] 3.0 g/dL Low 3.5 - 5.0 g/dL [facility] ALP [Catalytic activity/Vol] 112 U/L 32 - 126 U/L [facility] ALT [Catalytic activity/Vol] 22 U/L 10 - 52 U/L [facility] AST [Catalytic activity/Vol] 30 U/L 10 - 39 U/L [facility] Bilirubin [Mass/Vol] 1.2 mg/dL NINF - 1.5 mg/dL [facility] Bilirubin.direct [Mass/Vol] 0.4 mg/dL High NINF - 0.3 mg/dL [facility] Protein [Mass/Vol] 6.4 g/dL 6.4 - 8.3 g/dL [facility] LEGIONELLA PCRon 09-04-2023 Legionella sp rRNA Probe Ql (Unsp spec) Negative Not Applicable [facility] Specimen source Nom (Unsp spec) BAL RML [facility] Laboratory - Microbiology an d Antimicrobial susceptibilityon 09-04-2023 CMV DNA ESTELITA+probe Ql (Unsp spec) Negative Negative [facility] MAGNESIUMon 09-04-2023 Magnesium [Mass/Vol] 1.4 mg/dL Low 1.6 - 2 .6 mg/dL [facility] No Panel Informationon 09-04 Annotation comment [Interpretation] Narrative DNR [facility] PN Report Status DNR [facility] Pneumocystis jiroveci,PCR result Negative Not Applicable [facility] Interpretation and review of laboratory results [facility]normal [facility] PNEUMOCYSTIS JIROVECI,PCRon 09-04-2023 Specimen source Nom (Unsp spec) BAL LLL [facility] Specimen source Nom (Unsp spec) BAL RML [facility] Portable XR Chest Viewson RADIOLOGY RADIOLOGY [facility] Radiology Study observation (narrative) [facility] Portable XR Chest ViewsOrder ed By: Joanie Nugent on 09-04-2023 [facility] Work Phone: TACROLIMUS LEVEL, TROUGH (PA E DRUG LEVEL)on 09-04-2023 Interpretation and review of laboratory results Abnormal [facility] Tacrolimus (Bld) [Mass/Vol] 3.6 ng/mL Low [facility] ASPERGILLUS ANTIGEN, BALon 1 Galactomannan Ag IA Qn (Unsp spec) <0.[address] [facility] Galactomannan Ag IA Qn (Unsp spec) <0.[address] [facility] BAL CONSULTOrdered By: Noa Peralta on 09-03-2023 ALVEOLAR MACROPHAGES 32 % [facility] Work Phone: Bal comments Correlation with microbiology stains and cultures is recommended. [facility] Work Phone: Bal Diff Quik Stain Quality Check Acceptable [facility] Work Phone: BKR BAL INTERPRETATION Cellular specimen comprised of alveolar macrophages and small lymphocytes. No definitive microorganisms are observed. Moderate degenerative changes. [facility] Work Phone: BKR DX CODE Use Ordering [facility] Work Phone: Eosinophils Patterson stain Ql (Unsp spec) 0 % [facility] Work Phone: Lymphocytes/100 WBC (Bld) 57 % [facility] Work Phone: Neutrophils/100 WBC Manual cnt (Bronch spec) 11 % [facility] Work Phone: Pathologist review Jame (Unsp spec) [Interp] Leonardo Peralta MD [facility] Work Phone: [facility] Work Phone: BAL CONSULTon 09-03-2023 ALVEOLAR MACROPHAGES 33 % [facility] Bal comments Correlation with microbiology stains and cultures is recommended. Correlation with viral studies is recommended. [facility] Bal Diff Quik Stain Quality Check Acceptable [facility] BKR BAL INTERPRETATION Cellular specimen comprised of alveolar macrophages and small lymphocytes. No definitive microorganisms are observed. Rare degenerating cells with changes suggestive of viral cytopathic effect are noted. Moderate degenerative changes. [facility] BKR DX CODE Use Ordering [facility] Eosinophils Patterson stain Ql (Unsp spec) 0 % [facility] Lymphocytes/100 WBC (Bld) 49 % [facility] Neutrophils/100 WBC Manual cnt (Bronch spec) 18 % [facility] Pathologist review Jame (Unsp spec) [Interp] Leonardo Peralta MD [facility] BRONCHOSCOPYon 09-03-2023 LAB, [facility] CBC,PLATELETSon 09-03-2023 Erythrocyte distribution width (RBC) [Ratio] 13.4 % 10.9 - 14.3 % [facility] Hematocrit (Bld) [Volume fraction] 39.6 % 39.6 - 48.8 % [facility] Hemoglobin (Bld) [Mass/Vol] 12.8 g/dL Low 13.4 - 16.8 g/dL [facility] Interpretation and review of laboratory results Abnormal [facility] MCH (RBC) [Entitic mass] 27.8 pg 26.1 - 33.3 pg [facility] MCHC (RBC) [Mass/Vol] 32.3 g/dL 31.9 - 36.5 g/dL [facility] MCV (RBC) [Entitic vol] 85.9 fL 79.0 - 94.5 fL [facility] Platelet mean volume (Bld) [Entitic vol] 9.4 fL 8.7 - 12.3 fL [facility] Platelets (Bld) [#/Vol] 222 10*3/uL 146 - 337 K/uL [facility] RBC (Bld) [#/Vol] 4.61 10*6/uL [facility] WBC (Bld) [#/Vol] 4.36 10*3/uL 3.73 - 10. 10 K/uL [facility] CHEM 7 (LYTES,BUN,CREA,GLUC) on 09-03-2023 Anion gap [Moles/Vol] 12 mmol/L 7 - 17 mmol/L [facility] Chloride [Moles/Vol] 104 mmol/L 98 - 10 8 mmol/L [facility] CO2 [Moles/Vol] 24 mmol/L 21 - 31 mmol/L [facility] Creatinine [Mass/Vol] 1.20 mg/dL 0.70 - 1.30 mg/dL [facility] eGFR, CKD-EPI, Male 73 - PINF [facility] Glucose [Mass/Vol] 112 mg/dL High 70 - 99 mg/dL [facility] Osmolality Calc [Osmolality] 288 [facility] Potassium [Moles/Vol] 4.1 mmol/L 3.5 - 5.0 mmol/L [facility] Sodium [Moles/Vol] 136 mmol/L 135 - 145 mmol/L [facility] Urea nitrogen [Mass/Vol] 17 mg/dL 7 - 25 mg/dL [facility] Urea nitrogen/Creatinine [Mass ratio] 14 mg/mg [facility] CYTOLOGY, NON-GYNOrdered By: Sherice Jimenez on 09-03-2023 CYTOLOGIC DIAGNOSIS e8hjyCUlMUIosTXaUTSrC0brcwH zGZFjaJYwH9CvengoDKlrPZ0oZX 7kfUzpnYMwtPEaVHHzPoDmn8pkd 886nJUvg8btJEDAzxlrhRt9e1nj HGIHxM5vp2g6jW51EHNapF3hnYH oMYykiyMsCGqdvaTaxvFgXbi6CQ L0aHvhZbcbxFX6lMPxtFB1YDkjb 5OjtPnrjVklFCW0AHZfWiglGCap nEP5fEHhcDtisTVkUB5gm3ykxOH 2yyOjQJX8rPnfuPS6cMzpqervd1 eyfKR4wAV0WPjrsFZ9KWguPnTqW 6emMINjqX2wG57yB5fzCQUfgKtg JGlqYEExbJK8RLS7SPZoi1yyJFE wwFPnpBSnRzGeTHqmVyf2f1reXK IlpX12iGDiqnK6wUjkGCrauRW5L X84JTmvx4DqABHhgItdVCIevE4n YzIzXGxldmVsbmZjbjIzXGxldmV sutTaHPdquzQos4LujxFfaHD5IE prbnVamPB3tRblQBYgM9H2O792I IqqsvXbkxYeGjHmbbj9UAMetMmm bGlzdGxldmVsXGxldmVsbmZjMjN yiKC4UYezWfTcXaXciHI1CKnsYp AgmGN2HVrdbLDazGG9ZKkwuQT3E Yf8KZk9UJuyXYizIbs6vBqroWD1 IEitpT3lCSTzD77oAhU4l0aqiFB 0eLD7LKlmpLU8DZetGrDmO0uvML UfuY4pO74bM9qbTCIqtVgoUItoD EPoaEH9BIN3ZDMdy4ztHJQrsDVd zEQfIgLaRAmtTsz4u8ttGCRtaY7 1xYKriuR8lZfsWV26NRosl8DiJC OhiPbjKSDyjZ5aLuMeKLrrjpQnx mZjbjIzXGxldmVsamMwXGxldmVs d2EjzpDgfMC2WAblncPkgRR5rFz tFWLnP9I2J219YEbqnaBtszHjKu Wlqbn6IAOgqPpbiSuziBtnycFtX DbkbtAyoeWhHwPubNP8MWguJdOa KtAakIP8FXedZjLlsMG4QNlmwIZ hrOO1OTylzJR8HMl9PEz4SOckGT zqSue6rLpbiZZ0XIrtlB4jDXKzT 78zCnP2k7jsrQW2mCU8EPoozPK4 UIuuWdQjN1peBMRokR8hN43pW2c gWJAaoTmqAPntXIKpeOL4AAU4OD Bpn6svUOLsnZXakFSvMzFxUGoaF hr7t2ysJNVjxF57zPVgqlQ5eOhp PY15KCicq1QjBGEviXhsLDQncJ8 mYzIzXGxldmVsbmZjbjIzXGxldm HvmlQdLBqiolBoo7HbhmSheLQ7O VnrkaGurTW1bSfgMXJfU7N7H491 ONklbuGlppFlRxMtalr8QXQchAx cbGlzdGxldmVsXGxldmVsbmZjMj OcaVG9GLveVhWdPcNxsOH6LAfvF iRxcLH7XAadsYDzyNI0YZnuvVW5 UWu3THg9XGbvHOgyKog0nQxroMD 5UWvzyN3tGTYuW15kWeT2jX29XE ithTxbbU97MEAgqWNgcFEamXK0C EwvzNumvQ75TLFqxTIyQOtlr1Qv BUApZdJ2LYV6YPWqvHjbcV04HQQ rpXQiB186rfGuDIgrCT25EXWasN AlnnUfQqBmOSRvbLZmrUM7RPOkH F5iauxtRRixIBckTISurkQ5YOLn eXRrI6MaDYRuRE8ubnrsFHD6DDe cWTWmNVZ6EdIcNXSkn2Gicvh5Nh SltJh4m4lzTKZfDWZvdFtqv5hhZ HH2FJUemHObV8jviL1nQNTuTP6u tftyd7whQVpxJKhnCTRosEP5voY 7RRYjzTUcB3RayE9hKFClOMJnpk CxuXgbtQ7bNcesrnGlIEHeQNXUB eQBZv3SI6eWSVaKRZ7OQWPyCKZZ MNjEUZMQWFVPJOfQV1OKVZuGErS eMDIzDWDyJ3oML4wFW9mnAotlKy LvTEzbXPHvNdQpM9TjXWGvpiwoU BRzOOSUHA2HOFIIJJVWQl5YJRB0 YCDvcsllhRT6GWpqpdPfmMk3nJV nlOlfnY9eIbtsrqDzYLQaLSIVqn YLMNebW85fafSlJ9QvfWReHEJbE LfcAY95gVOoVCOyvDBjNQq9nY9d ILhzaAqfjsVZnQNhzT3vaazwMMn jZjBccGFyXGxpMFxsczBccGFyfQ == [facility] Work Phone: Case Report [facility] Work Phone: Clinical History v5jqhKQfJZIfzEUgGVTu Q0ircgM cSOEodLBvT7WrcbovZCqaCW9rFL 9orFppbBTyrZIjDIVjNiHxg4crx 336wSSrv4xtPTLJabdvtPr8mNda Z90do5M2EzciJ6coNSFqEUrpNTX oKPteeDLsSYl9FJGfbSUpruEsQt GdLEHbhEAljNV8BVUcGL8vijtrU MnrUGllPUQoafA5MGBbiEKsJ6Pc ZDCzAN8msdiyOIP1ABrnYEOvPVF 7LnHeMLKiv6Fglro7JnKdcQr8a4 rkHGHbMURitUgyn7vyORV1TQYzu QZdY0jgtC9sSKBsRP7lkibfl3ga HHkuPUvrKZGrcUX7giY7XYXpuHB vR3WgqL5oIGQmTMCcohPamUgdjO 5cZnMyMFxjZjEgUmVuYWwgdHJhb xBiySJhtJ3lEIWxbb2= [facility] Work Phone: For Immediate Release to Patient's MyChart? Yes Yes [facility] Work Phone: Gross Description i5tfjLCgRPApgISjOBXo S7jahlS eDKJixMRdV9CszkphASxhVU3lJH 4ieVcsdZShxUSyAYOuPsXsg9ver 413bOUcq0fhXDZBgbbelPy7pYwc S61nx7J4AiewJ95iyQXlAVV5MBE aPVTpcEXfJQXkGGG2QKFojWMqE5 eeYVCpKC7dujznQIrtHXaxTIAuk XB1MDLklILhC2BoTXLxHRyfBXRo wuo4PsLsOe3myBJlcFjnTDeaSDY kXHBsYWluXGZzMjAgTExMIEJBTF fpBCQnOVFpnYZpYAy8TBEhzY0dq APrzyFciTEjnH1cbHzqBEmnUHYk VVDTRLVbqBjuDWAJXJWgq3HmhK1 ccGFyXHBhcmRccGFyXHBhcn0= [facility] Work Phone: [facility] Work Phone: HEPATIC FUNCTION PANELon Albumin [Mass/Vol] 3.2 g/dL Low 3.5 - 5.0 g/dL [facility] ALP [Catalytic activity/Vol] 118 U/L 32 - 126 U/L [facility] ALT [Catalytic activity/Vol] 25 U/L 10 - 52 U/L [facility] AST [Catalytic activity/Vol] 32 U/L 10 - 39 U/L [facility] Bilirubin [Mass/Vol] 1.0 mg/dL NINF - 1.5 mg/dL [facility] Bilirubin.direct [Mass/Vol] 0.3 mg/dL High NINF - 0.3 mg/dL [facility] Protein [Mass/Vol] 6.5 g/dL 6.4 - 8.3 g/dL [facility] HISTOPLASMA AND BLASTOMYCES ANTIGEN, ENZYME IMMUNOASSAY, SERMon 09-03-2023 Histoplasma/Blastomy antonia Ag Result Detected Critically abnormal Not Detected [facility] Histoplasma/Blastomy antonia Ag Value 5.3 ng/mL [facility] Interpretation and review of laboratory results Abnormal [facility] MAGNESIUMon 09-03-2023 Interpretation and review of laboratory results Normal [facility] Magnesium [Mass/Vol] 1.6 mg/dL 1.6 - 2 .6 mg/dL [facility] No Panel Informationon 09-03 Interpretation and review of laboratory results Abnormal [facility] PARVOVIRUS (B19) DNA, PCR, B LOODon 09-03-2023 PARVOVIRUS B19 BY RAPID PCR Not detected Not Detected [facility] PA SPEC SOURCE Whole Blood [facility] Portable XR Chest Viewson RADIOLOGY RADIOLOGY [facility] Radiology Study observation (narrative) [facility] Portable XR Chest ViewsOrder ed By: [place] on 09-03-2023 [facility] Work Phone: ASPERGILLUS (GALACTOMANNAN), ANTIGENon 09-02-2023 Galactomannan Ag IA Qn <0.[address] [facility] ATYPICAL BACTERIAL PNEUMONIA ,PCROrdered By: Shari Contreras on 09-02-2023 B. parapertussis DNA ESTELITA+probe Ql (Unsp spec) Not detected Not Detected [facility] B. pertussis DNA ESTELITA+probe Ql (Unsp spec) Not detected Not Detected [facility] C. pneumoniae DNA ESTELITA+probe Ql (Unsp spec) Not detected Not Detected [facility] Interpretation and review of laboratory results Normal [facility] M. pneumoniae DNA ESTELITA+probe Ql (Unsp spec) Not detected Not Detected [facility] BRONCHOSCOPYon 09-02-2023 Radiology Study observation (narrative) [facility] Bacteria identified Cx Nom ( Bld)on 09-02-2023 Bacteria identified Cx Nom (Unsp spec) NO GROWTH DAY 5 OF 5 [facility] CBC,PLATELETSon 09-02-2023 Erythrocyte distribution width (RBC) [Ratio] 13.2 % 10.9 - 14.3 % [facility] Hematocrit (Bld) [Volume fraction] 39.9 % 39.6 - 48.8 % [facility] Hemoglobin (Bld) [Mass/Vol] 12.9 g/dL Low 13.4 - 16.8 g/dL [facility] Interpretation and review of laboratory results Abnormal [facility] MCH (RBC) [Entitic mass] 27.9 pg 26.1 - 33.3 pg [facility] MCHC (RBC) [Mass/Vol] 32.3 g/dL 31.9 - 36.5 g/dL [facility] MCV (RBC) [Entitic vol] 86.4 fL 79.0 - 94.5 fL [facility] Platelet mean volume (Bld) [Entitic vol] 9.5 fL 8.7 - 12.3 fL [facility] Platelets (Bld) [#/Vol] 210 10*3/uL 146 - 337 K/uL [facility] RBC (Bld) [#/Vol] 4.62 [facility]*6[facility] [#/Vol] 4.12 10*3/uL 3.73 - 10. 10 K/uL [facility] CHEM 7 (LYTES,BUN,CREA,GLUC) on 09-02-2023 Anion gap [Moles/Vol] 13 mmol/L 7 - 17 mmol/L [facility] Chloride [Moles/Vol] 105 mmol/L 98 - 10 8 mmol/L [facility] CO2 [Moles/Vol] 22 mmol/L 21 - 31 mmol/L [facility] Creatinine [Mass/Vol] 1.25 mg/dL 0.70 - 1.30 mg/dL [facility] eGFR, CKD-EPI, Male 69 - PINF [facility] Glucose [Mass/Vol] 105 mg/dL High 70 - 99 mg/dL [facility] Osmolality Calc [Osmolality] 287 [facility] Potassium [Moles/Vol] 4.3 mmol/L 3.5 - 5.0 mmol/L [facility] Sodium [Moles/Vol] 136 mmol/L 135 - 145 mmol/L [facility] Urea nitrogen [Mass/Vol] 16 mg/dL 7 - 25 mg/dL [facility] Urea nitrogen/Creatinine [Mass ratio] 13 mg/mg [facility] HEPATIC FUNCTION PANELon Albumin [Mass/Vol] 3.2 g/dL Low 3.5 - 5.0 g/dL [facility] ALP [Catalytic activity/Vol] 107 U/L 32 - 126 U/L [facility] ALT [Catalytic activity/Vol] 20 U/L 10 - 52 U/L [facility] AST [Catalytic activity/Vol] 31 U/L 10 - 39 U/L [facility] Bilirubin [Mass/Vol] 1.0 mg/dL NINF - 1.5 mg/dL [facility] Bilirubin.direct [Mass/Vol] 0.3 mg/dL High NINF - 0.3 mg/dL [facility] Protein [Mass/Vol] 6.6 g/dL 6.4 - 8.3 g/dL [facility] HISTOPLASMA ANTIGEN,URINEon 09-02-2023 H. capsulatum Ag (U) [Mass/Vol] Not detected ng/mL [facility] H. capsulatum Ag IA Ql (U) Not detected Not Detected [facility] HIV 1 AND 2 ANTIBODIES/P24 A NTIGENOrdered By: Wilma Luque on 09-02-2023 HIV 1+2 Ab+HIV1 p24 Ag IA Ql Non-Reactive Non Reactive [facility] Interpretation and review of laboratory results Normal [facility] MAGNESIUMon 09-02-2023 Interpretation and review of laboratory results Normal [facility] Magnesium [Mass/Vol] 1.7 mg/dL 1.6 - 2 .6 mg/dL [facility] No Panel Informationon 09-02 Interpretation and review of laboratory results Abnormal [facility] TACROLIMUS LEVEL, TROUGH (PA E DRUG LEVEL)on 09-02-2023 Interpretation and review of laboratory results Normal [facility] Tacrolimus (Bld) [Mass/Vol] 4.2 ng/mL [facility] CBC,PLATELETSon 09-01-2023 Erythrocyte distribution width (RBC) [Ratio] 13.4 % 10.9 - 14.3 % [facility] Hematocrit (Bld) [Volume fraction] 38.9 % Low 39.6 - 48.8 % [facility] Hemoglobin (Bld) [Mass/Vol] 12.7 g/dL Low 13.4 - 16.8 g/dL [facility] Interpretation and review of laboratory results Abnormal [facility] MCH (RBC) [Entitic mass] 27.6 pg 26.1 - 33.3 pg [facility] MCHC (RBC) [Mass/Vol] 32.6 g/dL 31.9 - 36.5 g/dL [facility] MCV (RBC) [Entitic vol] 84.6 fL 79.0 - 94.5 fL [facility] Platelet mean volume (Bld) [Entitic vol] 9.4 fL 8.7 - 12.3 fL [facility] Platelets (Bld) [#/Vol] 209 10*3/uL 146 - 337 K/uL [facility] RBC (Bld) [#/Vol] 4.60 10*6/uL [facility] WBC (Bld) [#/Vol] 4.41 10*3/uL 3.73 - 10. 10 K/uL [facility] CHEM 7 (LYTES,BUN,CREA,GLUC) on 09-01-2023 Anion gap [Moles/Vol] 14 mmol/L 7 - 17 mmol/L [facility] Chloride [Moles/Vol] 103 mmol/L 98 - 10 8 mmol/L [facility] CO2 [Moles/Vol] 21 mmol/L 21 - 31 mmol/L [facility] Creatinine [Mass/Vol] 1.16 mg/dL 0.70 - 1.30 mg/dL [facility] eGFR, CKD-EPI, Male 76 - PINF [facility] Glucose [Mass/Vol] 117 mg/dL High 70 - 99 mg/dL [facility] Osmolality Calc [Osmolality] 285 [facility] Potassium [Moles/Vol] 4.2 mmol/L 3.5 - 5.0 mmol/L [facility] Sodium [Moles/Vol] 134 mmol/L Low 135 - 145 mmol/L [facility] Urea nitrogen [Mass/Vol] 18 mg/dL 7 - 25 mg/dL [facility] Urea nitrogen/Creatinine [Mass ratio] 16 mg/mg [facility] CRYPTOCOCCAL ANTIGENon 09-01 Cryptococcus sp Ag Ql (S) Negative Negative [facility] Interpretation and review of laboratory results [facility] [facility] HEPATIC FUNCTION PANELon Albumin [Mass/Vol] 3.3 g/dL Low 3.5 - 5.0 g/dL [facility] ALP [Catalytic activity/Vol] 112 U/L 32 - 126 U/L [facility] ALT [Catalytic activity/Vol] 21 U/L 10 - 52 U/L [facility] AST [Catalytic activity/Vol] 29 U/L 10 - 39 U/L [facility] Bilirubin [Mass/Vol] 1.0 mg/dL NINF - 1.5 mg/dL [facility] Bilirubin.direct [Mass/Vol] 0.2 mg/dL NINF - 0.3 mg/dL [facility] Protein [Mass/Vol] 6.8 g/dL 6.4 - 8.3 g/dL [facility] L. pneumophila 1 Ag IA Ql (U )Ordered By: Carolin Miles on 09-01-2023 Interpretation and review of laboratory results Normal [facility] LEGIONELLA URINARY AGOrdered By: Carolin Miles on 09-01-2023 L. pneumophila 1 Ag IA Ql (U) Negative Negative [facility] MAGNESIUMon 09-01-2023 Interpretation and review of laboratory results Normal [facility] Magnesium [Mass/Vol] 1.6 mg/dL 1.6 - 2 .6 mg/dL [facility] No Panel Informationon 09-01 Interpretation and review of laboratory results Abnormal [facility] CBC,PLATELETSon 08-31-2023 Erythrocyte distribution width (RBC) [Ratio] 13.3 % 10.9 - 14.3 % [facility] Hematocrit (Bld) [Volume fraction] 39.4 % Low 39.6 - 48.8 % [facility] Hemoglobin (Bld) [Mass/Vol] 12.8 g/dL Low 13.4 - 16.8 g/dL [facility] Interpretation and review of laboratory results Abnormal [facility] MCH (RBC) [Entitic mass] 27.6 pg 26.1 - 33.3 pg [facility] MCHC (RBC) [Mass/Vol] 32.5 g/dL 31.9 - 36.5 g/dL [facility] MCV (RBC) [Entitic vol] 85.1 fL 79.0 - 94.5 fL [facility] Platelet mean volume (Bld) [Entitic vol] 9.6 fL 8.7 - 12.3 fL [facility] Platelets (Bld) [#/Vol] 228 10*3/uL 146 - 337 K/uL [facility] RBC (Bld) [#/Vol] 4.63 10*6/uL [facility] WBC (Bld) [#/Vol] 4.77 10*3/uL 3.73 - 10. 10 K/uL [facility] CHEM 7 (LYTES,BUN,CREA,GLUC) on 08-31-2023 Anion gap [Moles/Vol] 13 mmol/L 7 - 17 mmol/L [facility] Chloride [Moles/Vol] 102 mmol/L 98 - 10 8 mmol/L [facility] CO2 [Moles/Vol] 23 mmol/L 21 - 31 mmol/L [facility] Creatinine [Mass/Vol] 1.37 mg/dL High 0.70 - 1.30 mg/dL [facility] eGFR, CKD-EPI, Male 62 - PINF [facility] Glucose [Mass/Vol] 112 mg/dL High 70 - 99 mg/dL [facility] Osmolality Calc [O[facility]olality] [facility] Potassium [Moles/Vol] 4.4 mmol/L 3.5 - 5.0 mmol/L [facility] Sodium [Moles/Vol] 134 mmol/L Low 135 - 145 mmol/L [facility] Urea nitrogen [Mass/Vol] 16 mg/dL 7 - 25 mg/dL [facility] Urea nitrogen/Creatinine [Mass ratio] 12 mg/mg [facility] CT Abdomen and Pelvis WO con traston 08-31-2023 RADIOLOGY RADIOLOGY [facility] Rad[facility]narrative[facility]en and Pelvis WO con trastOrdered By: Chavez Larkin on 08-31-2023 [facility] Work Phone: CT Chest WO contraston 08-31 RADIOLOGY RADIOLOGY [facility] Radiology Study observation (narrative) [facility] CT Chest WO contrastOrdered By: Daisha Patterson on 08-31-2023 [facility] Work Phone: FERRITINon 08-31-2023 Ferritin [Mass/Vol] 409.0 ng/mL High 10.5 - 3 07.3 ng/mL [facility] Interpretation and review of laboratory results Abnormal [facility] HEPATIC FUNCTION PANELon Albumin [Mass/Vol] 3.3 g/dL Low 3.5 - 5.0 g/dL [facility] ALP [Catalytic activity/Vol] 113 U/L 32 - 126 U/L [facility] ALT [Catalytic activity/Vol] 25 U/L 10 - 52 U/L [facility] AST [Catalytic activity/Vol] 31 U/L 10 - 39 U/L [facility] Bilirubin [Mass/Vol] 1.1 mg/dL NINF - 1.5 mg/dL [facility] Bilirubin.direct [Mass/Vol] 0.3 mg/dL High NINF - 0.3 mg/dL [facility] Protein [Mass/Vol] 7.0 g/dL 6.4 - 8.3 g/dL [facility] MAGNESIUMon 08-31-2023 Interpretation and review of laboratory results Normal [facility] Magnesium [Mass/Vol] 1.7 mg/dL 1.6 - 2 .6 mg/dL [facility] No Panel Informationon 08-31 Interpretation and review of laboratory results Abnormal [facility] PROCALCITONINon 08-31-2023 Interpretation and review of laboratory results Normal [facility] Procalcitonin [Mass/Vol] 0.23 ng/mL NINF - 0.50 ng/mL [facility] TACROLIMUS LEVEL, TROUGH (PA E DRUG LEVEL)Ordered By: Yanira Marcum on 08-31-2023 Interpretation and review of laboratory results Normal [facility] Tacrolimus (Bld) [Mass/Vol] 5.9 ng/mL [facility] URINE CULTUREOrdered By: Jorge Lozano on 08-31-2023 Bacteria identified Cx Nom (Unsp spec) No Growth [facility] DARYL AURIS SCREEN BY PCRO rdered By: Mynor Alejandro on 08-30-2023 Daryl auris Screen by PCR Not detected Not Detected [facility] Interpretation and review of laboratory results Normal [facility] CBC,PLATELETSon 08-30-2023 Erythrocyte distribution width (RBC) [Ratio] 13.3 % 10.9 - 14.3 % [facility] Hematocrit (Bld) [Volume fraction] 41.3 % 39.6 - 48.8 % [facility] Hemoglobin (Bld) [Mass/Vol] 13.2 g/dL Low 13.4 - 16.8 g/dL [facility] Interpretation and review of laboratory results Abnormal [facility] MCH (RBC) [Entitic mass] 27.3 pg 26.1 - 33.3 pg [facility] MCHC (RBC) [Mass/Vol] 32.0 g/dL 31.9 - 36.5 g/dL [facility] MCV (RBC) [Entitic vol] 85.5 fL 79.0 - 94.5 fL [facility] Platelet mean volume (Bld) [Entitic vol] 9.2 fL 8.7 - 12.3 fL [facility] Platelets (Bld) [#/Vol] 235 10*3/uL 146 - 337 K/uL [facility] RBC (Bld) [#/Vol] 4.83 10*6/uL [facility] WBC (Bld) [#/Vol] 4.96 10*3/uL 3.73 - 10. 10 K/uL [facility] CHEM 7 (LYTES,BUN,CREA,GLUC) on 08-30-2023 Anion gap [Moles/Vol] 14 mmol/L 7 - 17 mmol/L [facility] Chloride [Moles/Vol] 102 mmol/L 98 - 10 8 mmol/L [facility] CO2 [Moles/Vol] 20 mmol/L Low 21 - 31 mmol/L [facility] Creatinine [Mass/Vol] 1.56 mg/dL High 0.70 - 1.30 mg/dL [facility] eGFR, CKD-EPI, Male 54 Low - PINF [facility] Glucose [Mass/Vol] 123 mg/dL High 70 - 99 mg/dL [facility] Osmolality Calc [Osmolality] 281 [facility] Potassium [Moles/Vol] 4.3 mmol/L 3.5 - 5.0 mmol/L [facility] Sodium [Moles/Vol] 132 mmol/L Low 135 - 145 mmol/L [facility] Urea nitrogen [Mass/Vol] 16 mg/dL 7 - 25 mg/dL [facility] Urea nitrogen/Creatinine [Mass ratio] 10 mg/mg [facility] EXTRA MICROon 08-30-2023 [facility] HEPATIC FUNCTION PANELon Albumin [Mass/Vol] 3.7 g/dL 3.5 - 5.0 g/dL [facility] ALP [Catalytic activity/Vol] 115 U/L 32 - 126 U/L [facility] ALT [Catalytic activity/Vol] 22 U/L 10 - 52 U/L [facility] AST [Catalytic activity/Vol] 34 U/L 10 - 39 U/L [facility] Bilirubin [Mass/Vol] 1.2 mg/dL NINF - 1.5 mg/dL [facility] Bilirubin.direct [Mass/Vol] 0.3 mg/dL High NINF - 0.3 mg/dL [facility] Protein [Mass/Vol] 7.7 g/dL 6.4 - 8.3 g/dL [facility] MAGNESIUMon 08-30-2023 Interpretation and review of laboratory results Normal [facility] Magnesium [Mass/Vol] 1.8 mg/dL 1.6 - 2 .6 mg/dL [facility] No Panel Informationon 08-30 Interpretation and review of laboratory results Abnormal [facility] CBC,PLATELETSon 08-29-2023 Erythrocyte distribution width (RBC) [Ratio] 13.4 % 10.9 - 14.3 % [facility] Hematocrit (Bld) [Volume fraction] 37.6 % Low 39.6 - 48.8 % [facility] Hemoglobin (Bld) [Mass/Vol] 12.2 g/dL Low 13.4 - 16.8 g/dL [facility] Interpretation and review of laboratory results Abnormal [facility] MCH (RBC) [Entitic mass] 27.6 pg 26.1 - 33.3 pg [facility] MCHC (RBC) [Mass/Vol] 32.4 g/dL 31.9 - 36.5 g/dL [facility] MCV (RBC) [Entitic vol] 85.1 fL 79.0 - 94.5 fL [facility] Platelet mean volume (Bld) [Entitic vol] 9.4 fL 8.7 - 12.3 fL [facility] Platelets (Bld) [#/Vol] 233 10*3/uL 146 - 337 K/uL [facility] RBC (Bld) [#/Vol] 4.42 10*6/uL [facility] WBC (Bld) [#/Vol] 4.92 10*3/uL 3.73 - 10. 10 K/uL [facility] CHEM 7 (LYTES,BUN,CREA,GLUC) on 08-29-2023 Anion gap [Moles/Vol] 13 mmol/L 7 - 17 mmol/L [facility] Chloride [Moles/Vol] 105 mmol/L 98 - 10 8 mmol/L [facility] CO2 [Moles/Vol] 20 mmol/L Low 21 - 31 mmol/L [facility] Creatinine [Mass/Vol] 1.55 mg/dL High 0.70 - 1.30 mg/dL [facility] eGFR, CKD-EPI, Male 55 Low - PINF [facility] Glucose [Mass/Vol] 108 mg/dL High 70 - 99 mg/dL [facility] Osmolality Calc [Osmolality] 283 [facility] Potassium [Moles/Vol] 4.5 mmol/L 3.5 - 5.0 mmol/L [facility] Sodium [Moles/Vol] 133 mmol/L Low 135 - 145 mmol/L [facility] Urea nitrogen [Mass/Vol] 19 mg/dL 7 - 25 mg/dL [facility] Urea nitrogen/Creatinine [Mass ratio] 12 mg/mg [facility] GGTon 08-29-2023 Gamma glutamyl transferase [Catalytic activity/Vol] 64 U/L 8 - 64 U/L [facility] Interpretation and review of laboratory results Normal [facility] HEPATIC FUNCTION PANELon Albumin [Mass/Vol] 3.3 g/dL Low 3.5 - 5.0 g/dL [facility] ALP [Catalytic activity/Vol] 103 U/L 32 - 126 U/L [facility] ALT [Catalytic activity/Vol] 18 U/L 10 - 52 U/L [facility] AST [Catalytic activity/Vol] 27 U/L 10 - 39 U/L [facility] Bilirubin [Mass/Vol] [facility] Bilirubin.direct [Mass/Vol] 0.3 mg/dL High NINF - 0.3 mg/dL [facility] Protein [Mass/Vol] 6.8 g/dL 6.4 - 8.3 g/dL [facility] MAGNESIUMon 08-29-2023 Interpretation and review of laboratory results Normal [facility] Magnesium [Mass/Vol] 1.7 mg/dL 1.6 - 2 .6 mg/dL [facility] No Panel Informationon 08-29 Interpretation and review of laboratory results Abnormal [facility] PT,INR,PTTon 08-29-2023 aPTT Coag (PPP) [Time] 29.3 s [facility] INR Coag (Bld) [Relative time] 1.1 {INR} 0.9 - 1.1 [facility] Interpretation and review of laboratory results Normal [facility] PT Coag (PPP) [Time] 13.[address] [facility] Portable XR Chest Viewson RADIOLOGY RADIOLOGY [facility] Portable XR Chest ViewsOrder ed By: Gerald Baer on 08-29-2023 [facility] Work Phone: TACROLIMUS LEVEL, TROUGH (PA E DRUG LEVEL)on 08-29-2023 Interpretation and review of laboratory results Normal [facility] Tacrolimus (Bld) [Mass/Vol] 8.9 ng/mL [facility] TACROLIMUS LEVEL, TROUGH (PA E DRUG LEVEL)Ordered By: Roxanne Louie on 08-29-2023 Interpretation and review of laboratory results Normal [facility] Tacrolimus (Bld) [Mass/Vol] 8.7 ng/mL [facility] URINALYSIS REFLEX TO CULTURE PERFORMABLEOrdered By: Shaji Kelly on 08-29-2023 Appearance (U) Clear Clear [facility] Bacteria LM Ql (Urine sed) ABSENT ABSENT [facility] Calcium Oxalate Crystals PRESENT [facility] Color (U) Yellow Yellow [facility] Epithelial cells.squamous LM Ql (Urine sed) 0-2/hpf 0-2/hpf, 3-5/hpf = 1+ [facility] Glucose Test strip (U) [Mass/Vol] Negative Negative [facility] Interpretation and review of laboratory results Abnormal [facility] Ketones (U) [Mass/Vol] Negative Negative [facility] Leukocyte esterase Test strip Ql (U) Negative Negative [facility] Nitrite Ql (U) Negative Negative [facility] pH (U) 6.0 [pH] 5.0 - 7.0 [facility] Protein (U) [Mass/Vol] Negative Negative [facility] RBC (U) [#/Vol] Trace Abnormal Negative [facility] RBC LM.HPF (Urine sed) [#/Area] 3-5 Abnormal [facility] Specific gravity (U) [Rel density] 1.015 1.001 - 1.035 [facility] Urobilinogen (U) [Mass/Vol] 1.0 E.U./dL 0.2 E.U/dL, 1.0 E.U/dL [facility] WBC LM.HPF (Urine sed) [#/Area] 0 - 5 [facility] US for transplanted kidney l imitedon 08-29-2023 RADIOLOGY RADIOLOGY [facility] Radiology Study observation (narrative) [facility] US for transplanted kidney l imitedOrdered By: Romana Matias on 08-29-2023 [facility] Work Phone: CBC AND ELECTRONIC DIFFon Basophils (Bld) [#/Vol] K/uL 0.00 - 0.09 K/uL [facility] Basophils/100 WBC (Bld) 0.6 % [facility] Differential cell count method Nom (Bld) Electronic Differential [facility] Eosinophils (Bld) [#/Vol] 0.10 10*3/uL 0.00 - 0.48 K/uL [facility] Eosinophils/100 WBC (Bld) 2.1 % [facility] Erythrocyte distribution width (RBC) [Ratio] 13.4 % 10.9 - 14.3 % [facility] Hematocrit (Bld) [Volume fraction] 37.9 % Low 39.6 - 48.8 % [facility] Hemoglobin (Bld) [Mass/Vol] 12.4 g/dL Low 13.4 - 16.8 g/dL [facility] Immature granulocytes (Bld) [#/Vol] K/uL NINF - 0.07 K/uL [facility] Immature granulocytes/100 WBC (Bld) 0.6 % [facility] Interpretation and review of laboratory results Abnormal [facility] Lymphocytes (Bld) [#/Vol] 1.76 10*3/uL 0.83 - 3.57 K/uL [facility] Lymphocytes/100 WBC (Bld) 37.1 % [facility] MCH (RBC) [Entitic mass] 27.8 pg 26.1 - 33.3 pg [facility] MCHC (RBC) [Mass/Vol] 32.7 g/dL 31.9 - 36.5 g/dL [facility] MCV (RBC) [Entitic vol] 85.0 fL 79.0 - 94.5 fL [facility] Monocytes (Bld) [#/Vol] 0.66 10*3/uL 0.24 - 0.93 K/uL [facility] Monocytes/100 WBC (Bld) 13.9 % [facility] Neutrophils (Bld) [#/Vol] 2.16 10*3/uL 1.57 - 6.19 K/uL [facility] Nucleated RBC/100 WBC (Bld) [Ratio] 0.0 % [facility] Platelet mean volume (Bld) [Entitic vol] 9.3 fL 8.7 - 12.3 fL [facility] Platelets (Bld) [#/Vol] 262 10*3/uL 146 - 337 K/uL [facility] RBC (Bld) [#/Vol] 4.46 10*6/uL [facility] Segmented neutrophils/100 WBC (Bld) 45.7 % [facility] WBC (Bld) [#/Vol] 4.74 10*3/uL 3.73 - 10. 10 K/uL [facility] CHEM 6 (LYTES, BUN CREA)on 0 08-28-2023 Anion gap [Moles/Vol] 13 mmol/L 7 - 17 mmol/L [facility] Chloride [Moles/Vol] 103 mmol/L 98 - 10 8 mmol/L [facility] CO2 [Moles/Vol] 22 mmol/L 21 - 31 mmol/L [facility] Creatinine [Mass/Vol] 1.62 mg/dL High 0.70 - 1.30 mg/dL [facility] eGFR, CKD-EPI, Male 52 Low - PINF [facility] Interpretation and review of laboratory results Abnormal [facility] Potassium [Moles/Vol] 4.3 mmol/L 3.5 - 5.0 mmol/L [facility] Sodium [Moles/Vol] 134 mmol/L Low 135 - 145 mmol/L [facility] Urea nitrogen [Mass/Vol] 22 mg/dL 7 - 25 mg/dL [facility] Urea nitrogen/Creatinine [Mass ratio] 14 mg/mg [facility] Portable XR Chest Viewson Radiology Study observation (narrative) [facility] Respiratory virus DNA+RNA NA A+probe Nom (Unsp spec)Ordered By: Dayami Harris on 08-28-2023 Adenovirus DNA ESTELITA+probe Nom (Unsp spec) Not detected Not Detected [facility] B. parapertussis DNA ESTELITA+probe Ql (Unsp spec) Not detected Not Detected [facility] B. pertussis DNA ESTELITA+probe Ql (Unsp spec) Not detected Not Detected [facility] C. pneumoniae DNA ESTELITA+probe Ql (Unsp spec) Not detected Not Detected [facility] FLUAV RNA ESTELITA+probe Ql (Unsp spec) Not detected Not Detected [facility] FLUBV RNA ESTELITA+probe Ql (Unsp spec) Not detected Not Detected [facility] HCoV 229E RNA ESTELITA+non-probe Ql (Nph) Not detected Not Detected [facility] HCoV HKU1 RNA ESTELITA+non-probe Ql (Nph) Not detected Not Detected [facility] HCoV NL63 RNA ESTELITA+non-probe Ql (Nph) Not detected Not Detected [facility] HCoV OC43 RNA ESTELITA+non-probe Ql (Nph) Not detected Not Detected [facility] hMPV A RNA ESTELITA+probe Ql (Unsp spec) Not detected Not Detected [facility] Interpretation and review of laboratory results Normal [facility] M. pneumoniae DNA ESTELITA+probe Ql (Unsp spec) Not detected Not Detected [facility] Parainfluenza virus 1 RNA ESTELITA+probe Ql (Unsp spec) Not detected Not Detected [facility] Parainfluenza virus 2 RNA ESTELITA+probe Ql (Unsp spec) Not detected Not Detected [facility] Parainfluenza virus 3 RNA ESTELITA+probe Ql (Unsp spec) Not detected Not Detected [facility] Parainfluenza virus 4 RNA ESTELITA+probe Ql (Unsp spec) Not detected Not Detected [facility] Rhinovirus+Enterovir us RNA ESTELITA+probe Ql (Unsp spec) Not detected Not Detected [facility] RSV RNA ESTELITA+probe Ql (Unsp spec) Not detected Not Detected [facility] SARS-CoV-2 (COVID-19) RNA ESTELITA+probe Ql (Unsp spec) Not detected NOT DETECTED [facility] ALBUMINon 04-28-2023 Albumin [Mass/Vol] 4.0 g/dL Normal 3.4-5.0 [facility] Comment on above: Performed By: #### C MP #### [facility] [address] [place] [address] Dr. Dwight Waters ALKALINE PHOSPHAon ALP [Catalytic activity/Vol] 106 U/L Normal 46-116 [facility] Comment on above: Performed By: #### F [id number] #### [facility] [address] [address] [address] Dwight Waters BILIRUBIN CONJUGATED (DIRECT )on 04-28-2023 BILI, CONJUGATED 0.3 mg/dL Critically high 0.0-0.2 [facility] Comment on above: Performed By: #### C MP #### [facility] [address] [place] [address] Dr. Dwight Waters BILIRUBIN TOTALon 04-28-2023 Bilirubin [Mass/Vol] 1.4 mg/dL Critically high 0.2-1.0 [facility] Comment on above: Performed By: #### C MP #### [facility] [address] [place] [address] Dr. Dwight Waters BUNon 04-28-2023 Urea nitrogen [Mass/Vol] 12.0 mg/dL Normal 7.0-18.0 [facility] Comment on above: Performed By: #### U RTPCR #### [facility] [address] [place] [address] Dr. Dwight Waters CALCIUMon 04-28-2023 Calcium [Mass/Vol] 9.3 mg/dL Normal 8.5-10.1 [facility] Comment on above: Performed By: #### U RTPCR #### [facility] [address] [place] [address] Dr. Dwight Waters CBC AUTO DIFFon 04-28-2023 BASO # 0.1 103/ul Normal 0.0-0.1 [facility] Comment on above: Performed By: #### C BC #### [facility] [address] [place] [address] Dr. Dwight Waters Basophils/100 WBC (Bld) 0.9 % Normal 0.2-2.0 [facility] Comment on above: Performed By: #### C BC #### [facility] [address] [place] [address] Dr. Dwight Waters EO # 0.2 103/ul Normal 0.0-0.7 [facility] Comment on above: Performed By: #### C BC #### [facility] [address] [place] [address] Dr. Dwight Waters Eosinophils/100 WBC (Bld) 3.8 % Normal 0.9-7.0 [facility] Comment on above: Performed By: #### C BC #### [facility] [address] [place] [address] Dr. Dwight Waters Erythrocyte distribution width (RBC) [Ratio] 12.5 % Normal 11.0-15.0 [facility] Comment on above: Performed By: #### C BC #### [facility] [address] [place] [address] Dr. Dwight Waters Hematocrit (Bld) [Volume fraction] 49.8 % Normal 42.0-54.0 [facility] Comment on above: Performed By: #### C BC #### [facility] [address] [place] [address] Dr. Dwight Waters Hemoglobin (Bld) [Mass/Vol] 16.4 g/dL Normal 14.0-18.0 [facility] Comment on above: Performed By: #### C BC #### [facility] [address] [place] [address] Dr. Dwight Waters IG # 0.01 10e3/ul Normal 0.00-0.03 [facility] Comment on above: Performed By: #### C BC #### [facility] [address] [place] [address] Dr. Dwight Waters IG % 0.2 % Normal 0.0-0.5 [facility] Comment on above: Performed By: #### C BC #### [facility] [address] [place] [address] Dr. Dwight Waters LYMPH # 2.1 103/ul Normal 1.2-3.8 [facility] Comment on above: Performed By: #### C BC #### [facility] [address] [place] [address] Dr. Dwight Waters Lymphocytes/100 WBC (Bld) 39.1 % Normal 20.5-60.0 [facility] Comment on above: Performed By: #### C BC #### [facility] [address] [place] [address] Dr. Dwight Waters MANUAL DIFF REQ NO Normal [facility] Comment on above: Performed By: #### C BC #### [facility] [address] [place] [address] Dr. Dwight Waters MCH (RBC) [Entitic mass] 28.6 pg Normal 25.9-34.0 [facility] Comment on above: Performed By: #### C BC #### [facility] [address] [place] [address] Dr. Dwight Waters MCHC (RBC) [Mass/Vol] 32.9 g/dL Normal 29.9-35.2 [facility] Comment on above: Performed By: #### C BC #### [facility] [address] [place] [address] Dr. Dwight Waters MCV (RBC) [Entitic vol] 86.9 fL Normal 80.0-94.0 [facility] Comment on above: Performed By: #### C BC #### [facility] [address] [place] [address] Dr. Dwight Waters MONO # 0.6 103/ul Normal 0.3-0.8 [facility] Comment on above: Performed By: #### C BC #### [facility] [address] [place] [address] Dr. Dwight Waters Monocytes/100 WBC (Bld) 10.6 % Normal 1.7-12.0 [facility] Comment on above: Performed By: #### C BC #### [facility] [address] [place] [address] Dr. Dwight Waters NEUT # 2.5 103/ul Normal 1.4-6.5 [facility] Comment on above: Performed By: #### C BC #### [facility] [address] [place] [address] Dr. Dwight Waters Neutrophils/100 WBC (Bld) 45.4 % Normal 43.0-75.0 [facility] Comment on above: Performed By: #### C BC #### [facility] [address] [place] [address] Dr. Dwight Waters Platelet mean volume (Bld) [Entitic vol] 9.3 fL Critically low 9.5-13.5 [facility] Comment on above: Performed By: #### C BC #### [facility] [address] [place] [address] Dr. Dwight Waters PLT 248 103/ul Normal 150-450 [facility] Comment on above: Performed By: #### C BC #### [facility] [address] [place] [address] Dr. Dwight Waters RBC 5.73 106/ul Normal 4.70-6.10 [facility] Comment on above: Performed By: #### C BC #### [facility] [address] [place] [address] Dr. Dwight Waters WBC 5.5 103/ul Normal 4.0-11.0 [facility] Comment on above: Performed By: #### C BC #### [facility] [address] [place] [address] Dr. Dwight Waters CHLORIDEon 04-28-2023 Chloride [Moles/Vol] 107 mmol/L Normal 98-107 [facility] Comment on above: Performed By: #### U RTPCR #### [facility] [address] [place] [address] Dr. Dwight Waters CO2on 04-28-2023 CO2 [Moles/Vol] 28.9 mmol/L Normal 21.0-32.0 [facility] Comment on above: Performed By: #### U RTPCR #### [facility] [address] [place] [address] Dr. Dwight Waters CREATININEon 04-28-2023 Creatinine [Mass/Vol] 1.17 mg/dL Normal 0.70-1.30 [facility] Comment on above: Performed By: #### U RTPCR #### [facility] [address] [place] [address] Dr. Dwight Waters EGFR-AF PARAGUAYAN >60 Normal >=60 [facility] Comment on above: Performed By: #### U RTPCR #### [facility] [address] [place] [address] Dr. Dwight Waters EGFR-NON AF PARAGUAYAN >60 Normal >=60 [facility] Comment on above: Performed By: #### U RTPCR #### [facility] [address] [place] [address] Dr. Dwight Waters GGTon 04-28-2023 Gamma glutamyl transferase [Catalytic activity/Vol] 27 U/L Normal 15-85 [facility] Comment on above: Performed By: #### U RTPCR #### [facility] [address] [place] [address] Dr. Dwight Waters GLUCOSE BLOODon 04-28-2023 Glucose [Mass/Vol] 110 mg/dL Critically high 74-106 [facility] Comment on above: Performed By: #### U RTPCR #### [facility] [address] [place] [address] Dr. Dwight Waters MAGNESIUMon 04-28-2023 Magnesium [Mass/Vol] 1.7 mg/dL Critically low 1.8-2.4 [facility] Comment on above: Performed By: #### U RTPCR #### [facility] [address] [place] [address] Dr. Dwight Waters NAon 04-28-2023 Sodium [Moles/Vol] 144 mmol/L Normal 136-145 [facility] Comment on above: Performed By: #### U RTPCR #### [facility] [address] [place] [address] Dr. Dwight Waters PHOSPHORUSon 04-28-2023 Phosphate [Mass/Vol] 3.2 mg/dL Normal 2.6-4.7 [facility] Comment on above: Performed By: #### U RTPCR #### [facility] [address] [place] [address] Dr. Dwight Waters POTASSIUMon 04-28-2023 Potassium [Moles/Vol] 4.0 mmol/L Normal 3.5-5.1 [facility] Comment on above: Performed By: #### U RTPCR #### [facility] [address] [place] [address] Dr. Dwight Waters SGOTon 04-28-2023 AST [Catalytic activity/Vol] 25 U/L Normal 15-37 [facility] Comment on above: Performed By: #### C MP #### [facility] [address] [place] [address] Dr. Dwight Waters SGPTon 04-28-2023 ALT [Catalytic activity/Vol] 40 U/L Normal 16-63 [facility] Comment on above: Performed By: #### C MP #### [facility] [address] [place] [address] Dr. Dwight Waters URINE T PROTEIN CREAT RATIOo n 04-28-2023 Protein (U) [Mass/Vol] 10.1 mg/dL Normal <=12.0 [facility] Comment on above: Performed By: #### U RTPCR #### [facility] [address] [place] [address] Dr. Dwight Waters UR PROT CREAT RAT 0.14 Normal [facility] Comment on above: Performed By: #### U RTPCR #### [facility] [address] [place] [address] Dr. Dwight Waters URINE CREAT 74.40 mg/dL Normal 20.00-300.00 [facility] Comment on above: Performed By: #### U RTPCR #### [facility] [address] [place] [address] Dr. Dwight Waters BK VIRUS PCR QUANTon 023 BKV DNA QUANT PCR PLASMA Negative Normal Negative [facility] Comment on above: Result Comment: No B K DNA detected. . The linear range of the assay is 22 - 100,000,000 IU/mL. Performed By: #### B KVIRUS #### [facility] [address] [place] [address] Dr. Dwight Waters Log10 BKV DNA Plasma Normal [facility] Comment on above: Performed By: #### B KVIRUS #### [facility] [address] [place] [address] Dr. Dwight Waters FK506 (TACROLIMUS) WHOLE BLO ODon 03-04-2023 Tacrolimus (FK506), Blood 5.9 ng/mL Normal 2.0-20.0 [facility] Comment on above: Result Comment: Trou gh (immediately following transplant) 15.0 . Trough (steady state, 2 weeks or more after transplant): 3.0 - 8.0 . Performed by LC-MS/MS technology. Performed By: #### C MP #### [facility] [address] [place] [address] Dr. Dwight Waters ALBUMINon 03-02-2023 Albumin [Mass/Vol] 3.9 g/dL Normal 3.4-5.0 [facility] Comment on above: Performed By: #### U RTPCR #### [facility] [address] [place] [address] Dr. Dwight Waters ALKALINE PHOSPHAon ALP [Catalytic activity/Vol] 105 U/L Normal 46-116 [facility] Comment on above: Performed By: #### U RTPCR #### [facility] [address] [place] [address] Dr. Dwight Waters BILIRUBIN CONJUGATED (DIRECT )on 03-02-2023 BILI, CONJUGATED 0.2 mg/dL Normal 0.0-0.2 [facility] Comment on above: Performed By: #### U RTPCR #### [facility] [address] [place] [address] Dr. Dwight Waters BILIRUBIN TOTALon 03-02-2023 Bilirubin [Mass/Vol] 0.9 mg/dL Normal 0.2-1.0 [facility] Comment on above: Performed By: #### U RTPCR #### [facility] [address] [place] [address] Dr. Dwight Waters CBC AUTO DIFFon 03-02-2023 BASO # 0.1 103/ul Normal 0.0-0.1 [facility] Comment on above: Performed By: #### C BC #### [facility] [address] [place] [address] Dr. Dwight Waters Basophils/100 WBC (Bld) 0.9 % Normal 0.2-2.0 [facility] Comment on above: Performed By: #### C BC #### [facility] [address] [place] [address] Dr. Dwight Waters EO # 0.2 103/ul Normal 0.0-0.7 [facility] Comment on above: Performed By: #### C BC #### [facility] [address] [place] [address] Dr. Dwight Waters Eosinophils/100 WBC (Bld) 3.5 % Normal 0.9-7.0 [facility] Comment on above: Performed By: #### C BC #### [facility] [address] [place] [address] Dr. Dwight Waters Erythrocyte distribution width (RBC) [Ratio] 12.7 % Normal 11.0-15.0 [facility] Comment on above: Performed By: #### C BC #### [facility] [address] [place] [address] Dr. Dwight Waters Hematocrit (Bld) [Volume fraction] 48.2 % Normal 42.0-54.0 [facility] Comment on above: Performed By: #### C BC #### [facility] [address] [place] [address] Dr. Dwight Waters Hemoglobin (Bld) [Mass/Vol] 15.9 g/dL Normal 14.0-18.0 [facility] Comment on above: Performed By: #### C BC #### [facility] [address] [place] [address] Dr. Dwight Waters IG # 0.01 10e3/ul Normal 0.00-0.03 [facility] Comment on above: Performed By: #### C BC #### [facility] [address] [place] [address] Dr. Dwight Waters IG % 0.2 % Normal 0.0-0.5 [facility] Comment on above: Performed By: #### C BC #### [facility] [address] [place] [address] Dr. Dwight Waters LYMPH # 2.1 103/ul Normal 1.2-3.8 [facility] Comment on above: Performed By: #### C BC #### [facility] [address] [place] [address] Dr. Dwight Waters Lymphocytes/100 WBC (Bld) 37.4 % Normal 20.5-60.0 [facility] Comment on above: Performed By: #### C BC #### [facility] [address] [place] [address] Dr. Dwight Waters MANUAL DIFF REQ NO Normal [facility] Comment on above: Performed By: #### C BC #### [facility] [address] [address] [address] Dwight Waters MCH (RBC) [Entitic mass] 28.3 pg Normal 25.9-34.0 [facility] Comment on above: Performed By: #### C BC #### [facility] [address] [place] [address] Dr. Dwight Waters MCHC (RBC) [Mass/Vol] 33.0 g/dL Normal 29.9-35.2 [facility] Comment on above: Performed By: #### C BC #### [facility] [address] [place] [address] Dr. Dwight Waters MCV (RBC) [Entitic vol] 85.8 fL Normal 80.0-94.0 [facility] Comment on above: Performed By: #### C BC #### [facility] [address] [place] [address] Dr. Dwight Waters MONO # 0.6 103/ul Normal 0.3-0.8 [facility] Comment on above: Performed By: #### C BC #### [facility] [address] [place] [address] Dr. Dwight Waters Monocytes/100 WBC (Bld) 10.2 % Normal 1.7-12.0 [facility] Comment on above: Performed By: #### C BC #### [facility] [address] [place] [address] Dr. Dwight Waters NEUT # 2.7 103/ul Normal 1.4-6.5 [facility] Comment on above: Performed By: #### C BC #### [facility] [address] [place] [address] Dr. Dwight Waters Neutrophils/100 WBC (Bld) 47.8 % Normal 43.0-75.0 [facility] Comment on above: Performed By: #### C BC #### [facility] [address] [place] [address] Dr. Dwight Waters Platelet mean volume (Bld) [Entitic vol] 9.3 fL Critically low 9.5-13.5 [facility] Comment on above: Performed By: #### C BC #### [facility] [address] [place] [address] Dr. Dwight Waters PLT 241 103/ul Normal 150-450 [facility] Comment on above: Performed By: #### C BC #### [facility] [address] [place] [address] Dr. Dwight Waters RBC 5.62 106/ul Normal 4.70-6.10 [facility] Comment on above: Performed By: #### C BC #### [facility] [address] [place] [address] Dr. Dwight Waters WBC 5.7 103/ul Normal 4.0-11.0 [facility] Comment on above: Performed By: #### C BC #### [facility] [address] [place] [address] Dr. Dwight Waters GGTon 03-02-2023 Gamma glutamyl transferase [Catalytic activity/Vol] 25 U/L Normal 15-85 [facility] Comment on above: Performed By: #### U RTPCR #### [facility] [address] [place] [address] Dr. Dwight Waters MAGNESIUMon 03-02-2023 Magnesium [Mass/Vol] 1.6 mg/dL Critically low 1.8-2.4 [facility] Comment on above: Performed By: #### U RTPCR #### [facility] [address] [place] [address] Dr. Dwight Waters PHOSPHORUSon 03-02-2023 Phosphate [Mass/Vol] 3.6 mg/dL Normal 2.6-4.7 [facility] Comment on above: Performed By: #### U RTPCR #### [facility] [address] [place] [address] Dr. Dwight Waters PROF CHEM 8 (BAS METB)on Anion gap [Moles/Vol] 9.4 mmol/L Normal [facility] Comment on above: Performed By: #### U RTPCR #### [facility] [address] [place] [address] Dr. Dwight Waters Calcium [Mass/Vol] 9.3 mg/dL Normal 8.5-10.1 [facility] Comment on above: Performed By: #### U RTPCR #### [facility] [address] [address] [address] Dwight Waters Chloride [Moles/Vol] 108 mmol/L Critically high 98-107 [facility] Comment on above: Performed By: #### U RTPCR #### [facility] [address] [address] [address] Dwight Waters CO2 [Moles/Vol] 27.2 mmol/L Normal 21.0-32.0 [facility] Comment on above: Performed By: #### U RTPCR #### [facility] [address] [place] [address] Dr. Dwight Waters Creatinine [Mass/Vol] 1.12 mg/dL Normal 0.70-1.30 [facility] Comment on above: Performed By: #### U RTPCR #### [facility] [address] [place] [address] Dr. Dwight Waters EGFR-AF PARAGUAYAN >60 Normal >=60 [facility] Comment on above: Performed By: #### U RTPCR #### [facility] [address] [place] [address] Dr. Dwight Waters EGFR-NON AF PARAGUAYAN >60 Normal >=60 [facility] Comment on above: Performed By: #### U RTPCR #### [facility] [address] [place] [address] Dr. Dwight Waters Glucose [Mass/Vol] 113 mg/dL Critically high 74-106 [facility] Comment on above: Performed By: #### U RTPCR #### [facility] [address] [place] [address] Dr. Dwight Waters Potassium [Moles/Vol] 3.6 mmol/L Normal 3.5-5.1 [facility] Comment on above: Performed By: #### U RTPCR #### [facility] [address] [place] [address] Dr. Dwight Waters Sodium [Moles/Vol] 141 mmol/L Normal 136-145 [facility] Comment on above: Performed By: #### U RTPCR #### [facility] [address] [place] [address] Dr. Dwight Waters Urea nitrogen [Mass/Vol] 14.0 mg/dL Normal 7.0-18.0 [facility] Comment on above: Performed By: #### U RTPCR #### [facility] [address] [place] [address] Dr. Dwight Waters Urea nitrogen/Creatinine [Mass ratio] 12.5 mg/mg Normal [facility] Comment on above: Performed By: #### U RTPCR #### [facility] [address] [place] [address] Dr. Dwight OLVERAOTon 03-02-2023 AST [Catalytic activity/Vol] 20 U/L Normal 15-37 [facility] Comment on above: Performed By: #### U RTPCR #### [facility] [address] [place] [address] Dr. Dwight Waters SGPTon 03-02-2023 ALT [Catalytic activity/Vol] 30 U/L Normal 16-63 [facility] Comment on above: Performed By: #### U RTPCR #### [facility] [address] [place] [address] Dr. Dwight Waters URINE T PROTEIN CREAT RATIOo n 03-02-2023 Protein (U) [Mass/Vol] 10.3 mg/dL Normal <=12.0 [facility] Comment on above: Performed By: #### U RTPCR #### [facility] [address] [place] [address] Dr. Dwight Waters UR PROT CREAT RAT 0.15 Normal [facility] Comment on above: Performed By: #### U RTPCR #### [facility] [address] [place] [address] Dr. Dwight Waters URINE CREAT 68.96 mg/dL Normal 20.00-300.00 [facility] Comment on above: Performed By: #### U RTPCR #### [facility] [address] [place] [address] Dr. Dwight Waters BK VIRUS PCR QUANTon 023 BKV DNA QUANT PCR PLASMA Negative Normal Negative [facility] Comment on above: Result Comment: No B K DNA detected. . The linear range of the assay is 22 - 100,000,000 IU/mL. Performed By: #### C MP #### [facility] [address] [place] [address] Dr. Dwight Waters Log10 BKV DNA Plasma Normal [facility] Comment on above: Performed By: #### C MP #### [facility] [address] [place] [address] Dr. Dwight Waters FK506 (TACROLIMUS) WHOLE BLO ODon 12-31-2022 Tacrolimus (FK506), Blood 5.6 ng/mL Normal 2.0-20.0 [facility] Comment on above: Result Comment: Trou gh (immediately following transplant) 15.0 . Trough (steady state, 2 weeks or more after transplant): 3.0 - 8.0 . Performed by LC-MS/MS technology. Performed By: #### C MP #### [facility] [address] [place] [address] Dr. Dwight Waters ALKALINE PHOSPHAon ALP [Catalytic activity/Vol] 96 U/L Normal 46-116 [facility] Comment on above: Performed By: #### C BC #### [facility] [address] [place] [address] Dr. Dwight Waters BILIRUBIN CONJUGATED (DIRECT )on 12-29-2022 BILI, CONJUGATED 0.3 mg/dL Critically high 0.0-0.2 [facility] Comment on above: Performed By: #### C BC #### [facility] [address] [place] [address] Dr. Dwight Waters BILIRUBIN TOTALon 12-29-2022 Bilirubin [Mass/Vol] 1.1 mg/dL Critically high 0.2-1.0 [facility] Comment on above: Performed By: #### C BC #### [facility] [address] [place] [address] Dr. Dwight Waters CBC AUTO DIFFon 12-29-2022 BASO # 0.1 103/ul Normal 0.0-0.1 [facility] Comment on above: Performed By: #### C MP #### [facility] [address] [place] [address] Dr. Dwight Waters Basophils/100 WBC (Bld) 0.8 % Normal 0.2-2.0 [facility] Comment on above: Performed By: #### C MP #### [facility] [address] [place] [address] Dr. Dwight Waters EO # 0.2 103/ul Normal 0.0-0.7 [facility] Comment on above: Performed By: #### C MP #### [facility] [address] [place] [address] Dr. Dwight Waters Eosinophils/100 WBC (Bld) 3.0 % Normal 0.9-7.0 [facility] Comment on above: Performed By: #### C MP #### [facility] [address] [place] [address] Dr. Dwight Waters Erythrocyte distribution width (RBC) [Ratio] 12.9 % Normal 11.0-15.0 [facility] Comment on above: Performed By: #### C MP #### [facility] [address] [place] [address] Dr. Dwight Waters Hematocrit (Bld) [Volume fraction] 46.9 % Normal 42.0-54.0 [facility] Comment on above: Performed By: #### C MP #### [facility] [address] [place] [address] Dr. Dwight Waters Hemoglobin (Bld) [Mass/Vol] 16.1 g/dL Normal 14.0-18.0 [facility] Comment on above: Performed By: #### C MP #### [facility] [address] [place] [address] Dr. Dwight Waters IG # 0.01 10e3/ul Normal 0.00-0.03 [facility] Comment on above: Performed By: #### C MP #### [facility] [address] [place] [address] Dr. Dwight Waters IG % 0.2 % Normal 0.0-0.5 [facility] Comment on above: Performed By: #### C MP #### [facility] [address] [place] [address] Dr. Dwight Waters LYMPH # 1.8 103/ul Normal 1.2-3.8 [facility] Comment on above: Performed By: #### C MP #### [facility] [address] [place] [address] Dr. Dwight Waters Lymphocytes/100 WBC (Bld) 27.9 % Normal 20.5-60.0 [facility] Comment on above: Performed By: #### C MP #### [facility] [address] [place] [address] Dr. Dwight Waters MANUAL DIFF REQ NO Normal [facility] Comment on above: Performed By: #### C MP #### [facility] [address] [place] [address] Dr. Dwight Waters MCH (RBC) [Entitic mass] 28.5 pg Normal 25.9-34.0 [facility] Comment on above: Performed By: #### C MP #### [facility] [address] [place] [address] Dr. Dwight Waters MCHC (RBC) [Mass/Vol] 34.3 g/dL Normal 29.9-35.2 [facility] Comment on above: Performed By: #### C MP #### [facility] [address] [place] [address] Dr. Dwight Waters MCV (RBC) [Entitic vol] 83.2 fL Normal 80.0-94.0 [facility] Comment on above: Performed By: #### C MP #### [facility] [address] [place] [address] Dr. Dwight Waters MONO # 0.5 103/ul Normal 0.3-0.8 [facility] Comment on above: Performed By: #### C MP #### [facility] [address] [place] [address] Dr. Dwight Waters Monocytes/100 WBC (Bld) 8.1 % Normal 1.7-12.0 [facility] Comment on above: Performed By: #### C MP #### [facility] [address] [address] [address] Dwight Waters NEUT # 3.8 103/ul Normal 1.4-6.5 [facility] Comment on above: Performed By: #### C MP #### [facility] [address] [place] [address] Dr. Dwight Waters Neutrophils/100 WBC (Bld) 60.0 % Normal 43.0-75.0 [facility] Comment on above: Performed By: #### C MP #### [facility] [address] [place] [address] Dr. Dwight Waters Platelet mean volume (Bld) [Entitic vol] 9.2 fL Critically low 9.5-13.5 [facility] Comment on above: Performed By: #### C MP #### [facility] [address] [place] [address] Dr. Dwight Waters PLT 225 103/ul Normal 150-450 [facility] Comment on above: Performed By: #### C MP #### [facility] [address] [place] [address] Dr. Dwight Waters RBC 5.64 106/ul Normal 4.70-6.10 [facility] Comment on above: Performed By: #### C MP #### [facility] [address] [place] [address] Dr. Dwight Waters WBC 6.3 103/ul Normal 4.0-11.0 [facility] Comment on above: Performed By: #### C MP #### [facility] [address] [place] [address] Dr. Dwight Waters GGTon 12-29-2022 Gamma glutamyl transferase [Catalytic activity/Vol] 24 U/L Normal 15-85 [facility] Comment on above: Performed By: #### C MP #### [facility] [address] [place] [address] Dr. Dwight Waters LIPID PROFILEon 12-29-2022 CHOL-HDL RATIO NORM SEE BELOW Normal [facility] Comment on above: Result Comment: 3.3 - 4.4 LOW RISK 4.4 - 7.1 AVERAGE RISK 7.1 - 11.0 MODERATE RISK >11.0 HIGH RISK Performed By: #### U RTPCR #### [facility] [address] [place] [address] Dr. Dwight Waters Cholesterol [Mass/Vol] 87 mg/dL Normal <=200 [facility] Comment on above: Performed By: #### U RTPCR #### [facility] [address] [place] [address] Dr. Dwight Waters Cholesterol in HDL [Mass/Vol] 44 mg/dL Normal 40-60 [facility] Comment on above: Performed By: #### U RTPCR #### [facility] [address] [place] [address] Dr. Dwight Waters Cholesterol in LDL [Mass/Vol] 33.0 mg/dL Normal [facility] Comment on above: Performed By: #### U RTPCR #### [facility] [address] [place] [address] Dr. Dwight Waters Cholesterol.total/Ch olesterol in HDL [Mass ratio] 2.0 {ratio} Normal [facility] Comment on above: Performed By: #### U RTPCR #### [facility] [address] [place] [address] Dr. Dwight Waters HDL NORMAL > or = 60 mg/dl - LO W CARDIOVASCULAR RISK <40 mg/dl - HIGH CARDIOVASCULAR RISK Normal [facility] Comment on above: Performed By: #### U RTPCR #### [facility] [address] [place] [address] Dr. Dwight Waters LDL CALC NORMAL SEE BELOW Normal [facility] Comment on above: Result Comment: <100 mg/dl OPTIMAL 100 - 129 mg/dl NEAR OR ABOVE OPTIMAL 130 - 159 mg/dl BORDERLINE HIGH 160 - 189 mg/dl HIGH >190 mg/dl VERY HIGH Performed By: #### U RTPCR #### [facility] [address] [place] [address] Dr. Dwight Waters Triglyceride [Mass/Vol] 50 mg/dL Normal <=150 [facility] Comment on above: Performed By: #### U RTPCR #### [facility] [address] [place] [address] Dr. Dwight Waters VLDL CALC 10.0 mg/dL Normal [facility] Comment on above: Performed By: #### U RTPCR #### [facility] [address] [place] [address] Dr. Dwight Waters MAGNESIUMon 12-29-2022 Magnesium [Mass/Vol] 1.6 mg/dL Critically low 1.8-2.4 [facility] Comment on above: Performed By: #### C BC #### [facility] [address] [place] [address] Dr. Dwight Waters RENAL FUNCTION PANELon 12-29 Albumin [Mass/Vol] 3.9 g/dL Normal 3.4-5.0 [facility] Comment on above: Performed By: #### C BC #### [facility] [address] [place] [address] Dr. Dwight Waters Calcium [Mass/Vol] 9.2 mg/dL Normal 8.5-10.1 [facility] Comment on above: Performed By: #### C BC #### [facility] [address] [place] [address] Dr. Dwight Waters Chloride [Moles/Vol] 109 mmol/L Critically high 98-107 [facility] Comment on above: Performed By: #### C BC #### [facility] [address] [place] [address] Dr. Dwight Waters CO2 [Moles/Vol] 27.0 mmol/L Normal 21.0-32.0 [facility] Comment on above: Performed By: #### C BC #### [facility] [address] [place] [address] Dr. Dwight Waters Creatinine [Mass/Vol] 1.02 mg/dL Normal 0.70-1.30 [facility] Comment on above: Performed By: #### C BC #### [facility] [address] [place] [address] Dr. Dwight Waters EGFR-AF PARAGUAYAN >60 Normal >=60 [facility] Comment on above: Performed By: #### C BC #### [facility] [address] [place] [address] Dr. Dwight Waters EGFR-NON AF PARAGUAYAN >60 Normal >=60 [facility] Comment on above: Performed By: #### C BC #### [facility] [address] [address] [address] Dwight Waters Glucose [Mass/Vol] 117 mg/dL Critically high 74-106 [facility] Comment on above: Performed By: #### C BC #### [facility] [address] [address] [address] Dwight Waters Phosphate [Mass/Vol] 3.2 mg/dL Normal 2.6-4.7 [facility] Comment on above: Performed By: #### C BC #### [facility] [address] [place] [address] Dr. Dwight Waters Potassium [Moles/Vol] 4.1 mmol/L Normal 3.5-5.1 [facility] Comment on above: Performed By: #### C BC #### [facility] [address] [place] [address] Dr. Dwight Waters Sodium [Moles/Vol] 144 mmol/L Normal 136-145 [facility] Comment on above: Performed By: #### C BC #### [facility] [address] [place] [address] Dr. Dwight Waters Urea nitrogen [Mass/Vol] 13.0 mg/dL Normal 7.0-18.0 [facility] Comment on above: Performed By: #### C BC #### [facility] [address] [address] [address] Dwight Waters SGAlicia 12-29-2022 AST [Catalytic activity/Vol] 21 U/L Normal 15-37 [facility] Comment on above: Performed By: #### C BC #### [facility] [address] [place] [address] Dr. Dwight OLVERAPTon 12-29-2022 ALT [Catalytic activity/Vol] 32 U/L Normal 16-63 [facility] Comment on above: Performed By: #### C BC #### [facility] [address] [address] [address] Dwight Waters URINE T PROTEIN CREAT RATIOo n 12-29-2022 Protein (U) [Mass/Vol] 14.3 mg/dL Critically high <=12.0 [facility] Comment on above: Performed By: #### U RTPCR #### [facility] [address] [place] [address] Dr. Dwight Waters UR PROT CREAT RAT 0.17 Normal [facility] Comment on above: Performed By: #### U RTPCR #### [facility] [address] [place] [address] Dr. Dwight Waters URINE CREAT 86.58 mg/dL Normal 20.00-300.00 [facility] Comment on above: Performed By: #### U RTPCR #### [facility] [address] [place] [address] Dr. Dwight Waters FK506 (TACROLIMUS) WHOLE BLO ODon 11-06-2022 Tacrolimus (FK506), Blood 4.9 ng/mL Normal 2.0-20.0 [facility] Comment on above: Result Comment: Trou gh (immediately following transplant) 15.0 . Trough (steady state, 2 weeks or more after transplant): 3.0 - 8.0 . Performed by LC-MS/MS technology. Performed By: #### U RTPCR #### [facility] [address] [place] [address] Dr. Dwight Waters ALKALINE PHOSPHAon ALP [Catalytic activity/Vol] 86 U/L Normal 46-116 [facility] Comment on above: Performed By: #### U RTPCR #### [facility] [address] [place] [address] Dr. Dwight Waters BILIRUBIN CONJUGATED (DIRECT )on 11-04-2022 BILI, CONJUGATED 0.2 mg/dL Normal 0.0-0.2 [facility] Comment on above: Performed By: #### U RTPCR #### [facility] [address] [place] [address] Dr. Dwight Waters BILIRUBIN TOTALon 11-04-2022 Bilirubin [Mass/Vol] 0.8 mg/dL Normal 0.2-1.0 [facility] Comment on above: Performed By: #### U RTPCR #### [facility] [address] [place] [address] Dr. Dwight Waters CBC AUTO DIFFon 11-04-2022 BASO # 0.1 103/ul Normal 0.0-0.1 [facility] Comment on above: Performed By: #### U RTPCR #### [facility] [address] [place] [address] Dr. Dwight Waters Basophils/100 WBC (Bld) 0.9 % Normal 0.2-2.0 [facility] Comment on above: Performed By: #### U RTPCR #### [facility] [address] [place] [address] Dr. Dwight Waters EO # 0.2 103/ul Normal 0.0-0.7 [facility] Comment on above: Performed By: #### U RTPCR #### [facility] [address] [place] [address] Dr. Dwight Waters Eosinophils/100 WBC (Bld) 3.7 % Normal 0.9-7.0 [facility] Comment on above: Performed By: #### U RTPCR #### [facility] [address] [place] [address] Dr. Dwihgt Waters Erythrocyte distribution width (RBC) [Ratio] 12.9 % Normal 11.0-15.0 [facility] Comment on above: Performed By: #### U RTPCR #### [facility] [address] [place] [address] Dr. Dwight Waters Hematocrit (Bld) [Volume fraction] 48.3 % Normal 42.0-54.0 [facility] Comment on above: Performed By: #### U RTPCR #### [facility] [address] [place] [address] Dr. Dwight Waters Hemoglobin (Bld) [Mass/Vol] 15.6 g/dL Normal 14.0-18.0 [facility] Comment on above: Performed By: #### U RTPCR #### [facility] [address] [place] [address] Dr. Dwight Waters IG # 0.01 10e3/ul Normal 0.00-0.03 [facility] Comment on above: Performed By: #### U RTPCR #### [facility] [address] [place] [address] Dr. Dwight Waters IG % 0.2 % Normal 0.0-0.5 [facility] Comment on above: Performed By: #### U RTPCR #### [facility] [address] [place] [address] Dr. Dwight Waters LYMPH # 1.9 103/ul Normal 1.2-3.8 [facility] Comment on above: Performed By: #### U RTPCR #### [facility] [address] [place] [address] Dr. Dwight Waters Lymphocytes/100 WBC (Bld) 33.0 % Normal 20.5-60.0 [facility] Comment on above: Performed By: #### U RTPCR #### [facility] [address] [place] [address] Dr. Dwight Waters MANUAL DIFF REQ NO Normal [facility] Comment on above: Performed By: #### U RTPCR #### [facility] [address] [place] [address] Dr. Dwight Waters MCH (RBC) [Entitic mass] 27.6 pg Normal 25.9-34.0 [facility] Comment on above: Performed By: #### U RTPCR #### [facility] [address] [place] [address] Dr. Dwight Waters MCHC (RBC) [Mass/Vol] 32.3 g/dL Normal 29.9-35.2 [facility] Comment on above: Performed By: #### U RTPCR #### [facility] [address] [place] [address] Dr. Dwight Waters MCV (RBC) [Entitic vol] 85.5 fL Normal 80.0-94.0 [facility] Comment on above: Performed By: #### U RTPCR #### [facility] [address] [place] [address] Dr. Dwight Waters MONO # 0.5 103/ul Normal 0.3-0.8 [facility] Comment on above: Performed By: #### U RTPCR #### [facility] [address] [place] [address] Dr. Dwight Waters Monocytes/100 WBC (Bld) 8.8 % Normal 1.7-12.0 [facility] Comment on above: Performed By: #### U RTPCR #### [facility] [address] [place] [address] Dr. Dwight Waters NEUT # 3.1 103/ul Normal 1.4-6.5 [facility] Comment on above: Performed By: #### U RTPCR #### [facility] [address] [place] [address] Dr. Dwihgt Waters Neutrophils/100 WBC (Bld) 53.4 % Normal 43.0-75.0 [facility] Comment on above: Performed By: #### U RTPCR #### [facility] [address] [place] [address] Dr. Dwight Waters Platelet mean volume (Bld) [Entitic vol] 9.2 fL Critically low 9.5-13.5 [facility] Comment on above: Performed By: #### U RTPCR #### [facility] [address] [place] [address] Dr. Dwight Waters PLT 255 103/ul Normal 150-450 [facility] Comment on above: Performed By: #### U RTPCR #### [facility] [address] [place] [address] Dr. Dwight Waters RBC 5.65 106/ul Normal 4.70-6.10 [facility] Comment on above: Performed By: #### U RTPCR #### [facility] [address] [place] [address] Dr. Dwight Waters WBC 5.7 103/ul Normal 4.0-11.0 [facility] Comment on above: Performed By: #### U RTPCR #### [facility] [address] [place] [address] Dr. Dwight Waters GGTon 11-04-2022 Gamma glutamyl transferase [Catalytic activity/Vol] 22 U/L Normal 15-85 [facility] Comment on above: Performed By: #### U RTPCR #### [facility] [address] [place] [address] Dr. Dwight Waters MAGNESIUMon 11-04-2022 Magnesium [Mass/Vol] 1.8 mg/dL Normal 1.8-2.4 [facility] Comment on above: Performed By: #### U RTPCR #### [facility] [address] [place] [address] Dr. Dwight Waters RENAL FUNCTION PANELon 11-04 Albumin [Mass/Vol] 3.8 g/dL Normal 3.4-5.0 [facility] Comment on above: Performed By: #### U RTPCR #### [facility] [address] [place] [address] Dr. Dwight Waters Calcium [Mass/Vol] 9.3 mg/dL Normal 8.5-10.1 [facility] Comment on above: Performed By: #### U RTPCR #### [facility] [address] [place] [address] Dr. Dwight Waters Chloride [Moles/Vol] 107 mmol/L Normal 98-107 [facility] Comment on above: Performed By: #### U RTPCR #### [facility] [address] [place] [address] Dr. Dwight Waters CO2 [Moles/Vol] 29.2 mmol/L Normal 21.0-32.0 [facility] Comment on above: Performed By: #### U RTPCR #### [facility] [address] [place] [address] Dr. Dwight Waters Creatinine [Mass/Vol] 1.07 mg/dL Normal 0.70-1.30 [facility] Comment on above: Performed By: #### U RTPCR #### [facility] [address] [place] [address] Dr. Dwight Waters EGFR-AF PARAGUAYAN >60 Normal >=60 [facility] Comment on above: Performed By: #### U RTPCR #### [facility] [address] [place] [address] Dr. Dwight Waters EGFR-NON AF PARAGUAYAN >60 Normal >=60 [facility] Comment on above: Performed By: #### U RTPCR #### [facility] [address] [place] [address] Dr. Dwight Waters Glucose [Mass/Vol] 106 mg/dL Normal 74-106 [facility] Comment on above: Performed By: #### U RTPCR #### [facility] [address] [place] [address] Dr. Dwight Waters Phosphate [Mass/Vol] 2.8 mg/dL Normal 2.6-4.7 [facility] Comment on above: Performed By: #### U RTPCR #### [facility] [address] [place] [address] Dr. Dwight Waters Potassium [Moles/Vol] 4.1 mmol/L Normal 3.5-5.1 [facility] Comment on above: Performed By: #### U RTPCR #### [facility] [address] [place] [address] Dr. Dwight Waters Sodium [Moles/Vol] 143 mmol/L Normal 136-145 [facility] Comment on above: Performed By: #### U RTPCR #### [facility] [address] [place] [address] Dr. Dwight Waters Urea nitrogen [Mass/Vol] 12.0 mg/dL Normal 7.0-18.0 [facility] Comment on above: Performed By: #### U RTPCR #### [facility] [address] [place] [address] Dr. Dwight Albert 11-04-2022 AST [Catalytic activity/Vol] 19 U/L Normal 15-37 [facility] Comment on above: Performed By: #### U RTPCR #### [facility] [address] [place] [address] Dr. Dwight Osei 11-04-2022 ALT [Catalytic activity/Vol] 28 U/L Normal 16-63 [facility] Comment on above: Performed By: #### U RTPCR #### [facility] [address] [place] [address] Dr. Dwight Waters URINE T PROTEIN CREAT RATIOo n 11-04-2022 Protein (U) [Mass/Vol] 10.7 mg/dL Normal <=12.0 [facility] Comment on above: Performed By: #### U RTPCR #### [facility] [address] [place] [address] Dr. Dwight Waters UR PROT CREAT RAT 0.13 Normal [facility] Comment on above: Performed By: #### U RTPCR #### [facility] [address] [address] [address] Dwight Waters URINE CREAT 84.50 mg/dL Normal 20.00-300.00 [facility] Comment on above: Performed By: #### U RTPCR #### [facility] [address] [place] [address] Dr. Dwigth Waters FK506 (TACROLIMUS) WHOLE BLO ODon 09-18-2022 Tacrolimus (FK506), Blood 4.6 ng/mL Normal 2.0-20.0 [facility] Comment on above: Result Comment: Trou gh (immediately following transplant) 15.0 . Trough (steady state, 2 weeks or more after transplant): 3.0 - 8.0 . Performed by LC-MS/MS technology. Performed By: #### U RTPCR #### [facility] [address] [place] [address] Dr. Dwight Waters BK VIRUS PCR QUANTon 022 BKV DNA QUANT PCR PLASMA Negative Normal Negative [facility] Comment on above: Result Comment: No B K DNA detected. . The linear range of the assay is 22 - 100,000,000 IU/mL. Performed By: #### U RTPCR #### [facility] [address] [place] [address] Dr. Dwight Waters Log10 BKV DNA Plasma Normal [facility] Comment on above: Performed By: #### U RTPCR #### [facility] [address] [place] [address] Dr. Dwight Waters ALKALINE PHOSPHAon 2 ALP [Catalytic activity/Vol] 92 U/L Normal 46-116 [facility] Comment on above: Performed By: #### U RTPCR #### [facility] [address] [place] [address] Dr. Dwight Waters BILIRUBIN CONJUGATED (DIRECT )on 09-15-2022 BILI, CONJUGATED 0.3 mg/dL Critically high 0.0-0.2 [facility] Comment on above: Performed By: #### U RTPCR #### [facility] [address] [place] [address] Dr. Dwight Waters BILIRUBIN TOTALon 09-15-2022 Bilirubin [Mass/Vol] 1.1 mg/dL Critically high 0.2-1.0 [facility] Comment on above: Performed By: #### U RTPCR #### [facility] [address] [place] [address] Dr. Dwight Waters CBC AUTO DIFFon 09-15-2022 BASO # 0.1 103/ul Normal 0.0-0.1 [facility] Comment on above: Performed By: #### C BC #### [facility] [address] [place] [address] Dr. Dwight Waters Basophils/100 WBC (Bld) 0.8 % Normal 0.2-2.0 [facility] Comment on above: Performed By: #### C BC #### [facility] [address] [place] [address] Dr. Dwight Waters EO # 0.2 103/ul Normal 0.0-0.7 [facility] Comment on above: Performed By: #### C BC #### [facility] [address] [place] [address] Dr. Dwight Waters Eosinophils/100 WBC (Bld) 3.5 % Normal 0.9-7.0 [facility] Comment on above: Performed By: #### C BC #### [facility] [address] [place] [address] Dr. Dwight Waters Erythrocyte distribution width (RBC) [Ratio] 13.0 % Normal 11.0-15.0 [facility] Comment on above: Performed By: #### C BC #### [facility] [address] [place] [address] Dr. Dwight Waters Hematocrit (Bld) [Volume fraction] 50.0 % Normal 42.0-54.0 [facility] Comment on above: Performed By: #### C BC #### [facility] [address] [place] [address] Dr. Dwight Waters Hemoglobin (Bld) [Mass/Vol] 16.0 g/dL Normal 14.0-18.0 [facility] Comment on above: Performed By: #### C BC #### [facility] [address] [place] [address] Dr. Dwight Waters IG # 0.02 10e3/ul Normal 0.00-0.03 [facility] Comment on above: Performed By: #### C BC #### [facility] [address] [place] [address] Dr. Dwight Waters IG % 0.3 % Normal 0.0-0.5 [facility] Comment on above: Performed By: #### C BC #### [facility] [address] [place] [address] Dr. Dwight Waters LYMPH # 1.8 103/ul Normal 1.2-3.8 [facility] Comment on above: Performed By: #### C BC #### [facility] [address] [place] [address] Dr. Dwight Waters Lymphocytes/100 WBC (Bld) 26.5 % Normal 20.5-60.0 [facility] Comment on above: Performed By: #### C BC #### [facility] [address] [place] [address] Dr. Dwight Waters MANUAL DIFF REQ NO Normal [facility] Comment on above: Performed By: #### C BC #### [facility] [address] [place] [address] Dr. Dwight Waters MCH (RBC) [Entitic mass] 28.1 pg Normal 25.9-34.0 [facility] Comment on above: Performed By: #### C BC #### [facility] [address] [place] [address] Dr. Dwight Waters MCHC (RBC) [Mass/Vol] 32.0 g/dL Normal 29.9-35.2 [facility] Comment on above: Performed By: #### C BC #### [facility] [address] [address] [address] Dwight Waters MCV (RBC) [Entitic vol] 87.9 fL Normal 80.0-94.0 [facility] Comment on above: Performed By: #### C BC #### [facility] [address] [address] [address] Dwight Waters MONO # 0.5 103/ul Normal 0.3-0.8 [facility] Comment on above: Performed By: #### C BC #### [facility] [address] [address] [address] Dwight Waters Monocytes/100 WBC (Bld) 8.1 % Normal 1.7-12.0 [facility] Comment on above: Performed By: #### C BC #### [facility] [address] [place] [address] Dr. Dwight Waters NEUT # 4.0 103/ul Normal 1.4-6.5 [facility] Comment on above: Performed By: #### C BC #### [facility] [address] [place] [address] Dr. Dwight Waters Neutrophils/100 WBC (Bld) 60.8 % Normal 43.0-75.0 [facility] Comment on above: Performed By: #### C BC #### [facility] [address] [address] [address] Dwight Waters Platelet mean volume (Bld) [Entitic vol] 9.4 fL Critically low 9.5-13.5 [facility] Comment on above: Performed By: #### C BC #### [facility] [address] [address] [address] Dwight Waters PLT 265 103/ul Normal 150-450 [facility] Comment on above: Performed By: #### C BC #### [facility] [address] [address] [address] Dwight Waters RBC 5.69 106/ul Normal 4.70-6.10 [facility] Comment on above: Performed By: #### C BC #### [facility] [address] [place] [address] Dr. Dwight Waters WBC 6.6 103/ul Normal 4.0-11.0 [facility] Comment on above: Performed By: #### C BC #### [facility] [address] [place] [address] Dr. Dwight Waters GGTon 09-15-2022 Gamma glutamyl transferase [Catalytic activity/Vol] 23 U/L Normal 15-85 [facility] Comment on above: Performed By: #### U RTPCR #### [facility] [address] [place] [address] Dr. Dwight Waters MAGNESIUMon 09-15-2022 Magnesium [Mass/Vol] 1.8 mg/dL Normal 1.8-2.4 [facility] Comment on above: Performed By: #### U RTPCR #### [facility] [address] [place] [address] Dr. Dwight Waters RENAL FUNCTION PANELon 09-15 Albumin [Mass/Vol] 4.1 g/dL Normal 3.4-5.0 [facility] Comment on above: Performed By: #### C BC #### [facility] [address] [place] [address] Dr. Dwight Waters Calcium [Mass/Vol] 9.3 mg/dL Normal 8.5-10.1 [facility] Comment on above: Performed By: #### C BC #### [facility] [address] [place] [address] Dr. Dwight Waters Chloride [Moles/Vol] 107 mmol/L Normal 98-107 [facility] Comment on above: Performed By: #### C BC #### [facility] [address] [place] [address] Dr. Dwight Waters CO2 [Moles/Vol] 25.6 mmol/L Normal 21.0-32.0 [facility] Comment on above: Performed By: #### C BC #### [facility] [address] [place] [address] Dr. Dwight Waters Creatinine [Mass/Vol] 1.01 mg/dL Normal 0.70-1.30 [facility] Comment on above: Performed By: #### C BC #### [facility] [address] [place] [address] Dr. Dwight Waters EGFR-AF PARAGUAYAN >60 Normal >=60 [facility] Comment on above: Performed By: #### C BC #### [facility] [address] [place] [address] Dr. Dwight Waters EGFR-NON AF PARAGUAYAN >60 Normal >=60 [facility] Comment on above: Performed By: #### C BC #### [facility] [address] [place] [address] Dr. Dwight Waters Glucose [Mass/Vol] 119 mg/dL Critically high 74-106 [facility] Comment on above: Performed By: #### C BC #### [facility] [address] [place] [address] Dr. Dwight Waters Phosphate [Mass/Vol] 2.8 mg/dL Normal 2.6-4.7 [facility] Comment on above: Performed By: #### C BC #### [facility] Laboratory [address] [place] [address] Dr. Dwight Waters Potassium [Moles/Vol] 4.0 mmol/L Normal 3.5-5.1 [facility] Comment on above: Performed By: #### C BC #### [facility] [address] [place] [address] Dr. Dwight Waters Sodium [Moles/Vol] 141 mmol/L Normal 136-145 [facility] Comment on above: Performed By: #### C BC #### [facility] [address] [place] [address] Dr. Dwight Waters Urea nitrogen [Mass/Vol] 15.0 mg/dL Normal 7.0-18.0 [facility] Comment on above: Performed By: #### C BC #### [facility] [address] [place] [address] Dr. Dwight Waters SGOTon 09-15-2022 AST [Catalytic activity/Vol] 18 U/L Normal 15-37 [facility] Comment on above: Performed By: #### U RTPCR #### [facility] [address] [address] [address] Dwight Waters SGPTon 09-15-2022 ALT [Catalytic activity/Vol] 32 U/L Normal 16-63 [facility] Comment on above: Performed By: #### C BC #### [facility] [address] [place] [address] Dr. Dwight Waters URINE T PROTEIN CREAT RATIOo n 09-15-2022 Protein (U) [Mass/Vol] 14.1 mg/dL Critically high <=12.0 [facility] Comment on above: Performed By: #### U RTPCR #### [facility] [address] [place] [address] Dr. Dwight Waters UR PROT CREAT RAT 0.14 Normal [facility] Comment on above: Performed By: #### U RTPCR #### [facility] [address] [place] [address] Dr. Dwight Waters URINE CREAT 98.89 mg/dL Normal 20.00-300.00 [facility] Comment on above: Performed By: #### U RTPCR #### [facility] [address] [place] [address] Dr. Dwight Waters US CAROTID ART BILon [...] JIMENEZ Date: 2022-08-28 13:20 Normal [facility] FK506 (TACROLIMUS) WHOLE BLO ODon 08-17-2022 Tacrolimus (FK506), Blood 9.9 ng/mL Normal 2.0-20.0 [facility] Comment on above: Result Comment: Trou gh (immediately following transplant) 15.0 . Trough (steady state, 2 weeks or more after transplant): 3.0 - 8.0 . Performed by LC-MS/MS technology. Performed By: #### F [id number] #### [facility] [address] [place] [address] Dr. Dwight Waters BK VIRUS PCR QUANTon 022 BKV DNA QUANT PCR PLASMA Negative Normal Negative [facility] Comment on above: Result Comment: No B K DNA detected. . The linear range of the assay is 22 - 100,000,000 IU/mL. Performed By: #### U RTPCR #### [facility] [address] [place] [address] Dr. Dwight Waters Log10 BKV DNA Plasma Normal [facility] Comment on above: Performed By: #### U RTPCR #### [facility] [address] [place] [address] Dr. Dwight Waters ALBUMINon 08-14-2022 Albumin [Mass/Vol] 4.2 g/dL Normal 3.4-5.0 [facility] Comment on above: Performed By: #### F [id number] #### [facility] [address] [place] [address] Dr. Dwight Waters ALKALINE PHOSPHAon ALP [Catalytic activity/Vol] 92 U/L Normal 46-116 [facility] Comment on above: Performed By: #### C BC #### [facility] [address] [place] [address] Dr. Dwight Waters BILIRUBIN CONJUGATED (DIRECT )on 08-14-2022 BILI, CONJUGATED 0.3 mg/dL Critically high 0.0-0.2 [facility] Comment on above: Performed By: #### F [id number] #### [facility] [address] [place] [address] Dr. Dwight Waters BILIRUBIN TOTALon 08-14-2022 Bilirubin [Mass/Vol] 1.5 mg/dL Critically high 0.2-1.0 [facility] Comment on above: Performed By: #### F [id number] #### [facility] [address] [place] [address] Dr. Dwight Waters BUNon 08-14-2022 Urea nitrogen [Mass/Vol] 11.0 mg/dL Normal 7.0-18.0 [facility] Comment on above: Performed By: #### C BC #### [facility] [address] [place] [address] Dr. Dwight Waters CALCIUMon 08-14-2022 Calcium [Mass/Vol] 9.4 mg/dL Normal 8.5-10.1 [facility] Comment on above: Performed By: #### F [id number] #### [facility] [address] [place] [address] Dr. Dwight Waters CBC AUTO DIFFon 08-14-2022 BASO # 0.0 103/ul Normal 0.0-0.1 [facility] Comment on above: Performed By: #### C MP #### [facility] [address] [place] [address] Dr. Dwight Waters Basophils/100 WBC (Bld) 0.5 % Normal 0.2-2.0 [facility] Comment on above: Performed By: #### C MP #### [facility] [address] [place] [address] Dr. Dwight Waters EO # 0.2 103/ul Normal 0.0-0.7 [facility] Comment on above: Performed By: #### C MP #### [facility] [address] [place] [address] Dr. Dwight Waters Eosinophils/100 WBC (Bld) 2.6 % Normal 0.9-7.0 [facility] Comment on above: Performed By: #### C MP #### [facility] [address] [place] [address] Dr. Dwight Waters Erythrocyte distribution width (RBC) [Ratio] 13.1 % Normal 11.0-15.0 [facility] Comment on above: Performed By: #### C MP #### [facility] [address] [place] [address] Dr. Dwight Waters Hematocrit (Bld) [Volume fraction] 47.0 % Normal 42.0-54.0 [facility] Comment on above: Performed By: #### C MP #### [facility] [address] [place] [address] Dr. Dwight Waters Hemoglobin (Bld) [Mass/Vol] 15.3 g/dL Normal 14.0-18.0 [facility] Comment on above: Performed By: #### C MP #### [facility] [address] [place] [address] Dr. Dwight Waters IG # 0.01 10e3/ul Normal 0.00-0.03 [facility] Comment on above: Performed By: #### C MP #### [facility] [address] [place] [address] Dr. Dwight Waters IG % 0.1 % Normal 0.0-0.5 [facility] Comment on above: Performed By: #### C MP #### [facility] [address] [place] [address] Dr. Dwight Waters LYMPH # 2.3 103/ul Normal 1.2-3.8 [facility] Comment on above: Performed By: #### C MP #### [facility] [address] [place] [address] Dr. Dwight Waters Lymphocytes/100 WBC (Bld) 29.8 % Normal 20.5-60.0 [facility] Comment on above: Performed By: #### C MP #### [facility] [address] [place] [address] Dr. Dwight Waters MANUAL DIFF REQ NO Normal [facility] Comment on above: Performed By: #### C MP #### [facility] [address] [place] [address] Dr. Dwight Waters MCH (RBC) [Entitic mass] 28.2 pg Normal 25.9-34.0 [facility] Comment on above: Performed By: #### C MP #### [facility] [address] [place] [address] Dr. Dwight Waters MCHC (RBC) [Mass/Vol] 32.6 g/dL Normal 29.9-35.2 [facility] Comment on above: Performed By: #### C MP #### [facility] [address] [place] [address] Dr. Dwight Waters MCV (RBC) [Entitic vol] 86.7 fL Normal 80.0-94.0 [facility] Comment on above: Performed By: #### C MP #### [facility] [address] [place] [address] Dr. Dwight Waters MONO # 0.7 103/ul Normal 0.3-0.8 [facility] Comment on above: Performed By: #### C MP #### [facility] [address] [place] [address] Dr. Dwight Waters Monocytes/100 WBC (Bld) 8.5 % Normal 1.7-12.0 [facility] Comment on above: Performed By: #### C MP #### [facility] [address] [place] [address] Dr. Dwight Waters NEUT # 4.5 103/ul Normal 1.4-6.5 [facility] Comment on above: Performed By: #### C MP #### [facility] [address] [place] [address] Dr. Dwight Waters Neutrophils/100 WBC (Bld) 58.5 % Normal 43.0-75.0 [facility] Comment on above: Performed By: #### C MP #### [facility] [address] [place] [address] Dr. Dwight Waters Platelet mean volume (Bld) [Entitic vol] 9.7 fL Normal 9.5-13.5 [facility] Comment on above: Performed By: #### C MP #### [facility] [address] [place] [address] Dr. Dwight Waters PLT 266 103/ul Normal 150-450 [facility] Comment on above: Performed By: #### C MP #### [facility] [address] [place] [address] Dr. Dwight Waters RBC 5.42 106/ul Normal 4.70-6.10 [facility] Comment on above: Performed By: #### C MP #### [facility] [address] [place] [address] Dr. Dwight Waters WBC 7.6 103/ul Normal 4.0-11.0 [facility] Comment on above: Performed By: #### C MP #### [facility] [address] [place] [address] Dr. Dwight Waters CHLORIDEon 08-14-2022 Chloride [Moles/Vol] 104 mmol/L Normal 98-107 [facility] Comment on above: Performed By: #### C BC #### [facility] [address] [place] [address] Dr. Dwight Waters CO2on 08-14-2022 CO2 [Moles/Vol] 27.9 mmol/L Normal 21.0-32.0 [facility] Comment on above: Performed By: #### C BC #### [facility] [address] [place] [address] Dr. Dwight Waters CREATININEon 08-14-2022 Creatinine [Mass/Vol] 1.08 mg/dL Normal 0.70-1.30 [facility] Comment on above: Performed By: #### C BC #### [facility] [address] [place] [address] Dr. Dwight Waters EGFR-AF PARAGUAYAN >60 Normal >=60 [facility] Comment on above: Performed By: #### C BC #### [facility] [address] [place] [address] Dr. Dwight Waters EGFR-NON AF PARAGUAYAN >60 Normal >=60 [facility] Comment on above: Performed By: #### C BC #### [facility] [address] [place] [address] Dr. Dwight Waters GGTon 08-14-2022 Gamma glutamyl transferase [Catalytic activity/Vol] 24 U/L Normal 15-85 [facility] Comment on above: Performed By: #### F [id number] #### [facility] [address] [place] [address] Dr. Dwight Waters GLUCOSE BLOODon 08-14-2022 Glucose [Mass/Vol] 111 mg/dL Critically high 74-106 [facility] Comment on above: Performed By: #### C BC #### [facility] [address] [place] [address] Dr. Dwight Waters MAGNESIUMon 08-14-2022 Magnesium [Mass/Vol] 1.4 mg/dL Critically low 1.8-2.4 [facility] Comment on above: Performed By: #### C BC #### [facility] [address] [place] [address] Dr. Dwight Waters NAon 08-14-2022 Sodium [Moles/Vol] 140 mmol/L Normal 136-145 [facility] Comment on above: Performed By: #### F [id number] #### [facility] [address] [place] [address] Dr. Dwight Waters PHOSPHORUSon 08-14-2022 Phosphate [Mass/Vol] 3.1 mg/dL Normal 2.6-4.7 [facility] Comment on above: Performed By: #### C BC #### [facility] [address] [place] [address] Dr. Dwight Waters POTASSIUMon 08-14-2022 Potassium [Moles/Vol] 3.5 mmol/L Normal 3.5-5.1 [facility] Comment on above: Performed By: #### C BC #### [facility] [address] [place] [address] Dr. Dwight Albert 08-14-2022 AST [Catalytic activity/Vol] 17 U/L Normal 15-37 [facility] Comment on above: Performed By: #### F [id number] #### [facility] [address] [place] [address] Dr. Dwight Waters SGPTon 08-14-2022 ALT [Catalytic activity/Vol] 22 U/L Normal 16-63 [facility] Comment on above: Performed By: #### F [id number] #### [facility] [address] [place] [address] Dr. Dwight Waters URINE T PROTEIN CREAT RATIOo n 08-14-2022 Protein (U) [Mass/Vol] 10.7 mg/dL Normal <=12.0 [facility] Comment on above: Performed By: #### F [id number] #### [facility] [address] [place] [address] Dr. Dwight Waters UR PROT CREAT RAT 0.10 Normal [facility] Comment on above: Performed By: #### F [id number] #### [facility] [address] [address] [address] Dwight Waters URINE CREAT 104.28 mg/dL Normal 20.00-300.00 [facility] Comment on above: Performed By: #### F [id number] #### [facility] [address] [id number] Dwight Waters NEPHROSTOMY TUBE REMOVALon 0 [...] physician present for entire procedure: yes U [facility] Radiology Study observation (narrative) [facility] FK506 (TACROLIMUS) WHOLE BLO ODon 07-06-2022 Tacrolimus (FK506), Blood 9.5 ng/mL Normal 2.0-20.0 [facility] Comment on above: Result Comment: Trou gh (immediately following transplant) 15.0 . Trough (steady state, 2 weeks or more after transplant): 3.0 - 8.0 . Performed by LC-MS/MS technology. Performed By: #### C MP #### [facility] [address] [place] [address] Dr. Dwight Waters ALBUMINon 07-03-2022 Albumin [Mass/Vol] 3.7 g/dL Normal 3.4-5.0 [facility] Comment on above: Performed By: #### U RTPCR #### [facility] [address] [place] [address] Dr. Dwight Waters ALKALINE PHOSPHAon ALP [Catalytic activity/Vol] 76 U/L Normal 46-116 [facility] Comment on above: Performed By: #### U RTPCR #### [facility] [address] [place] [address] Dr. Dwight Waters BILIRUBIN CONJUGATED (DIRECT )on 07-03-2022 BILI, CONJUGATED 0.3 mg/dL Critically high 0.0-0.2 [facility] Comment on above: Performed By: #### C BC #### [facility] [address] [place] [address] Dr. Dwight Waters BILIRUBIN TOTALon 07-03-2022 Bilirubin [Mass/Vol] 1.4 mg/dL Critically high 0.2-1.0 [facility] Comment on above: Performed By: #### C BC #### [facility] [address] [place] [address] Dr. Dwight Waters BUNon 07-03-2022 Urea nitrogen [Mass/Vol] 15.0 mg/dL Normal 7.0-18.0 [facility] Comment on above: Performed By: #### C BC #### [facility] [address] [place] [address] Dr. Dwight Waters CALCIUMon 07-03-2022 Calcium [Mass/Vol] 9.4 mg/dL Normal 8.5-10.1 [facility] Comment on above: Performed By: #### U RTPCR #### [facility] [address] [place] [address] Dr. Dwight Waters CBC AUTO DIFFon 07-03-2022 BASO # 0.0 103/ul Normal 0.0-0.1 [facility] Comment on above: Performed By: #### U RTPCR #### [facility] [address] [place] [address] Dr. Dwight Waters Basophils/100 WBC (Bld) 0.6 % Normal 0.2-2.0 [facility] Comment on above: Performed By: #### U RTPCR #### [facility] [address] [place] [address] Dr. Dwight Waters EO # 0.2 103/ul Normal 0.0-0.7 [facility] Comment on above: Performed By: #### U RTPCR #### [facility] [address] [place] [address] Dr. Dwight Waters Eosinophils/100 WBC (Bld) 3.5 % Normal 0.9-7.0 [facility] Comment on above: Performed By: #### U RTPCR #### [facility] [address] [place] [address] Dr. Dwight Waters Erythrocyte distribution width (RBC) [Ratio] 12.9 % Normal 11.0-15.0 [facility] Comment on above: Performed By: #### U RTPCR #### [facility] [address] [place] [address] Dr. Dwight Waters Hematocrit (Bld) [Volume fraction] 44.2 % Normal 42.0-54.0 [facility] Comment on above: Performed By: #### U RTPCR #### [facility] [address] [place] [address] Dr. Dwight Waters Hemoglobin (Bld) [Mass/Vol] 14.6 g/dL Normal 14.0-18.0 [facility] Comment on above: Performed By: #### U RTPCR #### [facility] [address] [place] [address] Dr. Dwight Waters IG # 0.02 10e3/ul Normal 0.00-0.03 [facility] Comment on above: Performed By: #### U RTPCR #### [facility] [address] [place] [address] Dr. Dwight Waters IG % 0.3 % Normal 0.0-0.5 [facility] Comment on above: Performed By: #### U RTPCR #### [facility] [address] [place] [address] Dr. Dwight Waters LYMPH # 2.0 103/ul Normal 1.2-3.8 [facility] Comment on above: Performed By: #### U RTPCR #### [facility] [address] [place] [address] Dr. Dwight Waters Lymphocytes/100 WBC (Bld) 28.4 % Normal 20.5-60.0 [facility] Comment on above: Performed By: #### U RTPCR #### [facility] [address] [place] [address] Dr. Dwight Waters MANUAL DIFF REQ NO Normal [facility] Comment on above: Performed By: #### U RTPCR #### [facility] [address] [place] [address] Dr. Dwight Waters MCH (RBC) [Entitic mass] 28.6 pg Normal 25.9-34.0 [facility] Comment on above: Performed By: #### U RTPCR #### [facility] [address] [place] [address] Dr. Dwight Waters MCHC (RBC) [Mass/Vol] 33.0 g/dL Normal 29.9-35.2 [facility] Comment on above: Performed By: #### U RTPCR #### [facility] [address] [place] [address] Dr. Dwight Waters MCV (RBC) [Entitic vol] 86.7 fL Normal 80.0-94.0 [facility] Comment on above: Performed By: #### U RTPCR #### [facility] [address] [place] [address] Dr. Dwight Waters MONO # 0.6 103/ul Normal 0.3-0.8 [facility] Comment on above: Performed By: #### U RTPCR #### [facility] [address] [place] [address] Dr. Dwight Waters Monocytes/100 WBC (Bld) 9.1 % Normal 1.7-12.0 [facility] Comment on above: Performed By: #### U RTPCR #### [facility] [address] [place] [address] Dr. Dwight Waters NEUT # 4.0 103/ul Normal 1.4-6.5 [facility] Comment on above: Performed By: #### U RTPCR #### [facility] [address] [place] [address] Dr. Dwight Waters Neutrophils/100 WBC (Bld) 58.1 % Normal 43.0-75.0 [facility] Comment on above: Performed By: #### U RTPCR #### [facility] [address] [place] [address] Dr. Dwight Waters Platelet mean volume (Bld) [Entitic vol] 9.5 fL Normal 9.5-13.5 [facility] Comment on above: Performed By: #### U RTPCR #### [facility] [address] [place] [address] Dr. Dwight Waters PLT 292 103/ul Normal 150-450 [facility] Comment on above: Performed By: #### U RTPCR #### [facility] [address] [place] [address] Dr. Dwight Waters RBC 5.10 106/ul Normal 4.70-6.10 [facility] Comment on above: Performed By: #### U RTPCR #### [facility] [address] [place] [address] Dr. Dwight Waters WBC 6.9 103/ul Normal 4.0-11.0 [facility] Comment on above: Performed By: #### U RTPCR #### [facility] [address] [place] [address] Dr. Dwight Waters CHLORIDEon 07-03-2022 Chloride [Moles/Vol] 108 mmol/L Critically high 98-107 [facility] Comment on above: Performed By: #### C BC #### [facility] [address] [place] [address] Dr. Dwight Waters CO2on 07-03-2022 CO2 [Moles/Vol] 25.2 mmol/L Normal 21.0-32.0 [facility] Comment on above: Performed By: #### C BC #### [facility] [address] [place] [address] Dr. Dwight Waters CREATININEon 07-03-2022 Creatinine [Mass/Vol] 1.03 mg/dL Normal 0.70-1.30 [facility] Comment on above: Performed By: #### U RTPCR #### [facility] [address] [place] [address] Dr. Dwight Waters EGFR-AF PARAGUAYAN >60 Normal >=60 [facility] Comment on above: Performed By: #### U RTPCR #### [facility] [address] [place] [address] Dr. Dwight Waters EGFR-NON AF PARAGUAYAN >60 Normal >=60 [facility] Comment on above: Performed By: #### U RTPCR #### [facility] [address] [place] [address] Dr. Dwight Waters GGTon 07-03-2022 Gamma glutamyl transferase [Catalytic activity/Vol] 31 U/L Normal 15-85 [facility] Comment on above: Performed By: #### U RTPCR #### [facility] [address] [place] [address] Dr. Dwight Waters GLUCOSE BLOODon 07-03-2022 Glucose [Mass/Vol] 119 mg/dL Critically high 74-106 T [facility] Comment on above: Performed By: #### U RTPCR #### [facility] [address] [place] [address] Dr. Dwight Waters MAGNESIUMon 07-03-2022 Magnesium [Mass/Vol] 1.4 mg/dL Critically low 1.8-2.4 [facility] Comment on above: Performed By: #### C BC #### [facility] [address] [place] [address] Dr. Dwight Waters NAon 07-03-2022 Sodium [Moles/Vol] 142 mmol/L Normal 136-145 [facility] Comment on above: Performed By: #### C MP #### [facility] [address] [address] [address] Dwight Waters PHOSPHORUSon 07-03-2022 Phosphate [Mass/Vol] 3.4 mg/dL Normal 2.6-4.7 [facility] Comment on above: Performed By: #### C BC #### [facility] [address] [place] [address] Dr. Dwight Waters POTASSIUMon 07-03-2022 Potassium [Moles/Vol] 4.1 mmol/L Normal 3.5-5.1 [facility] Comment on above: Performed By: #### C BC #### [facility] [address] [place] [address] Dr. Dwight Waters SGOTon 07-03-2022 AST [Catalytic activity/Vol] 14 U/L Critically low 15-37 [facility] Comment on above: Performed By: #### C BC #### [facility] [address] [place] [address] Dr. Dwight Waters SGPTon 07-03-2022 ALT [Catalytic activity/Vol] 25 U/L Normal 16-63 [facility] Comment on above: Performed By: #### C BC #### [facility] [address] [place] [address] Dr. Dwight Waters US KIDNEYSon 07-03-2022 US KIDNEYS Ultrasound kidneys, bilateral HISTORY: Transplant of kidney , pain in the right lower quadrant COMPARISON: None. TECHNIQUE: Transabdominal ultrasound imaging of both kidneys was performed. FINDINGS: The [place] kidneys are diffusely echogenic and atrophic with cortical thinning. The right kidney measures 8.3 x 3.5 x 4.07 m and the left measures 9.9 x 3.8 x 3.6 cm. No hydronephrosis of the [place] kidneys. There is a renal transplant in [...] stone involving the renal transplant. 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 3. Normal bladder. Electronically authenticated by: ARCELIA PIZARRO Date: 2022-07-03 17:22 Normal [facility] CT Abdomen and Pelvis WO geoff sosa 06-27-2022 IMPRESSION: 1. Both [place] kidneys are atrophic with improvement in right-sided [...] Adrenals: Adrenal glands are unremarkable. Kidneys: Both [place] kidneys are atrophic. Interval improvement in right [place] kidney hydronephrosis since May 15, 2022. Status [...] Adrenals: Adrenal glands are unremarkable. Kidneys: Both [place] kidneys are atrophic. Interval improvement in right [place] kidney hydronephrosis since May 15, 2022. Status [...] aggressive osseous lesions. IMPRESSION IMPRESSION: 1. Both [place] kidneys are atrophic with improvement in right-sided hydronephrosis since May 15, 2022. 2. 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 No hydronephrosis. No discrete perinephric collection. 3. Partially imaged postsurgical changes related to prior liver transplant. 4. The bladder is decompressed, limiting evaluation. [facility] Radiology Study observation (narrative) [facility] CT Abdomen and Pelvis WO con trastOrdered By: Gera Lu on 06-27-2022 [facility] Work Phone: CBC AUTO DIFFon 06-18-2022 BASO # 0.0 103/ul Normal 0.0-0.1 [facility] Comment on above: Performed By: #### U RTPCR #### [facility] [address] [place] [address] Dr. Dwight Waters Basophils/100 WBC (Bld) 0.5 % Normal 0.2-2.0 [facility] Comment on above: Performed By: #### U RTPCR #### [facility] [address] [address] [address] Dwight Waters EO # 0.2 103/ul Normal 0.0-0.7 [facility] Comment on above: Performed By: #### U RTPCR #### [facility] [address] [address] [address] Dwight Waters Eosinophils/100 WBC (Bld) 2.3 % Normal 0.9-7.0 [facility] Comment on above: Performed By: #### U RTPCR #### [facility] [address] [address] [address] Dwight Waters Erythrocyte distribution width (RBC) [Ratio] 12.9 % Normal 11.0-15.0 [facility] Comment on above: Performed By: #### U RTPCR #### [facility] [address] [address] [address] Dwight Waters Hematocrit (Bld) [Volume fraction] 41.2 % Critically low 42.0-54.0 [facility] Comment on above: Performed By: #### U RTPCR #### [facility] [address] [address] [address] Dwight Waters Hemoglobin (Bld) [Mass/Vol] 13.3 g/dL Critically low 14.0-18.0 [facility] Comment on above: Performed By: #### U RTPCR #### [facility] [address] [place] [address] Dr. Dwight Waters IG # 0.04 10e3/ul Critically high 0.00-0.03 [facility] Comment on above: Performed By: #### U RTPCR #### [facility] [address] [place] [address] Dr. Dwight Waters IG % 0.5 % Normal 0.0-0.5 [facility] Comment on above: Performed By: #### U RTPCR #### [facility] [address] [place] [address] Dr. Dwight Waters LYMPH # 2.0 103/ul Normal 1.2-3.8 [facility] Comment on above: Performed By: #### U RTPCR #### [facility] [address] [place] [address] Dr. Dwight Waters Lymphocytes/100 WBC (Bld) 22.9 % Normal 20.5-60.0 [facility] Comment on above: Performed By: #### U RTPCR #### [facility] [address] [place] [address] Dr. Dwight Waters MANUAL DIFF REQ NO Normal [facility] Comment on above: Performed By: #### U RTPCR #### [facility] [address] [place] [address] Dr. Dwight Waters MCH (RBC) [Entitic mass] 28.7 pg Normal 25.9-34.0 [facility] Comment on above: Performed By: #### U RTPCR #### [facility] [address] [place] [address] Dr. Dwight Waters MCHC (RBC) [Mass/Vol] 32.3 g/dL Normal 29.9-35.2 [facility] Comment on above: Performed By: #### U RTPCR #### [facility] [address] [place] [address] Dr. Dwight Waters MCV (RBC) [Entitic vol] 88.8 fL Normal 80.0-94.0 [facility] Comment on above: Performed By: #### U RTPCR #### [facility] [address] [place] [address] Dr. Dwight Waters MONO # 0.8 103/ul Normal 0.3-0.8 [facility] Comment on above: Performed By: #### U RTPCR #### [facility] [address] [place] [address] Dr. Dwight Waters Monocytes/100 WBC (Bld) 9.7 % Normal 1.7-12.0 [facility] Comment on above: Performed By: #### U RTPCR #### [facility] [address] [place] [address] Dr. Dwight Waters NEUT # 5.6 103/ul Normal 1.4-6.5 [facility] Comment on above: Performed By: #### U RTPCR #### [facility] [address] [place] [address] Dr. Dwight Waters Neutrophils/100 WBC (Bld) 64.1 % Normal 43.0-75.0 [facility] Comment on above: Performed By: #### U RTPCR #### [facility] [address] [place] [address] Dr. Dwight Waters Platelet mean volume (Bld) [Entitic vol] 10.0 fL Normal 9.5-13.5 [facility] Comment on above: Performed By: #### U RTPCR #### [facility] [address] [place] [address] Dr. Dwight Waters PLT 270 103/ul Normal 150-450 [facility] Comment on above: Performed By: #### U RTPCR #### [facility] [address] [place] [address] Dr. Dwight Waters RBC 4.64 106/ul Critically low 4.70-6.10 [facility] Comment on above: Performed By: #### U RTPCR #### [facility] [address] [place] [address] Dr. Dwight Waters WBC 8.7 103/ul Normal 4.0-11.0 [facility] Comment on above: Performed By: #### U RTPCR #### [facility] [address] [place] [address] Dr. Dwight Waters CULTURE URINEon 06-18-2022 CULTURE URINE Culture Observations : NO GROWTH. Normal [facility] Comment on above: Performed By: #### U RTPCR #### [facility] [address] [place] [address] Dr. Dwight Waters [facility] SARS-CoV-2 (COVID-19) RNA ESTELITA+probe Ql (Unsp spec) Not detected Normal NOT DETECTED [facility] Comment on above: Result Comment: When [...] for this test is supported by the Diet Technician Registered of Health and Human Service's declaration that [...] Performed By: #### C BC #### [facility] [address] [place] [address] Dr. Dwight Waters ER URINE PROFILEon Bilirubin Ql (U) Negative Normal NEGATIVE [facility] Comment on above: Performed By: #### U RTPCR #### [facility] [address] [place] [address] Dr. Dwight Waters Clarity (U) CLEAR Normal CLEAR [facility] Comment on above: Performed By: #### U RTPCR #### [facility] [address] [place] [address] Dr. Dwight Waters Color (U) YELLOW Normal YELLOW [facility] Comment on above: Performed By: #### U RTPCR #### [facility] [address] [place] [address] Dr. Dwight SHARMA A micrscopic examina tion will be performed if indicated. Normal [facility] Comment on above: Performed By: #### U RTPCR #### [facility] [address] [place] [address] Dr. Dwight Waters Glucose Ql (U) Negative Normal NEGATIVE [facility] Comment on above: Performed By: #### U RTPCR #### [facility] [address] [place] [address] Dr. Dwight Waters Hemoglobin Ql (U) LARGE Abnormal NEGATIVE [facility] Comment on above: Performed By: #### U RTPCR #### [facility] [address] [place] [address] Dr. Dwight Waters Ketones Ql (U) Negative Normal NEGATIVE [facility] Comment on above: Performed By: #### U RTPCR #### [facility] [address] [place] [address] Dr. Dwight Waters LEUKOCYTES TRACE Abnormal NEGATIVE [facility] Comment on above: Performed By: #### U RTPCR #### [facility] [address] [place] [address] Dr. Dwight Waters Nitrite Ql (U) Negative Normal NEGATIVE [facility] Comment on above: Performed By: #### U RTPCR #### [facility] [address] [place] [address] Dr. Dwight Waters pH (U) 6.0 [pH] Normal 5-9 [facility] Comment on above: Performed By: #### U RTPCR #### [facility] [address] [place] [address] Dr. Dwight Waters Protein (U) [Mass/Vol] 30 mg/dL Abnormal NEGATIVE/ TRACE [facility] Comment on above: Performed By: #### U RTPCR #### [facility] [address] [place] [address] Dr. Dwight Waters SPEC GRAVITY >=1.030 Abnormal 1.005-<=1.02 5 [facility] Comment on above: Performed By: #### U RTPCR #### [facility] [address] [place] [address] Dr. Dwight Waters UR MICRO IND INDICATED Normal [facility] Comment on above: Performed By: #### U RTPCR #### [facility] [address] [place] [address] Dr. Dwight Waters Urobilinogen Qn (U) 0.2 {Alyssa'U}/dL Normal 0.2 - 1. 0 [facility] Comment on above: Performed By: #### U RTPCR #### [facility] [address] [place] [address] Dr. Dwight Waters PROF 14(COMP METB)on 022 Albumin [Mass/Vol] 3.7 g/dL Normal 3.4-5.0 [facility] Comment on above: Performed By: #### C MP #### [facility] [address] [place] [address] Dr. Dwight Waters Albumin/Globulin [Mass ratio] 0.9 {ratio} Normal [facility] Comment on above: Performed By: #### C MP #### [facility] [address] [place] [address] Dr. Dwight Waters ALP [Catalytic activity/Vol] 80 U/L Normal 46-116 [facility] Comment on above: Performed By: #### C MP #### [facility] [address] [place] [address] Dr. Dwight Waters ALT [Catalytic activity/Vol] 24 U/L Normal 16-63 [facility] Comment on above: Performed By: #### C MP #### [facility] [address] [place] [address] Dr. Dwight Waters Anion gap [Moles/Vol] 12.9 mmol/L Normal [facility] Comment on above: Performed By: #### C MP #### [facility] [address] [place] [address] Dr. Dwight Waters AST [Catalytic activity/Vol] 17 U/L Normal 15-37 [facility] Comment on above: Performed By: #### C MP #### [facility] [address] [address] [address] Dwight Waters Bilirubin [Mass/Vol] 0.8 mg/dL Normal 0.2-1.0 [facility] Comment on above: Performed By: #### C MP #### [facility] [address] [address] [address] Dwight Waters Calcium [Mass/Vol] 9.4 mg/dL Normal 8.5-10.1 [facility] Comment on above: Performed By: #### C MP #### [facility] [address] [address] [address] Dwight Waters Chloride [Moles/Vol] 106 mmol/L Normal 98-107 [facility] Comment on above: Performed By: #### C MP #### [facility] [address] [address] [address] Dwight Waters CO2 [Moles/Vol] 25.3 mmol/L Normal 21.0-32.0 [facility] Comment on above: Performed By: #### C MP #### [facility] [address] [address] [address] Dwight Waters Creatinine [Mass/Vol] 1.29 mg/dL Normal 0.70-1.30 [facility] Comment on above: Performed By: #### C MP #### [facility] [address] [address] [address] Dwight Waters EGFR-AF PARAGUAYAN >60 Normal >=60 [facility] Comment on above: Performed By: #### C MP #### [facility] [address] [address] [address] Dwight Waters EGFR-NON AF PARAGUAYAN 59 mL/min/1.73m2 Critically low >=60 [facility] Comment on above: Performed By: #### C MP #### [facility] [address] [address] [address] Dwight Waters Globulin (S) [Mass/Vol] 4.2 g/dL Normal [facility] Comment on above: Performed By: #### C MP #### [facility] [address] [address] [address] Dwight Waters Glucose [Mass/Vol] 106 mg/dL Normal 74-106 [facility] Comment on above: Performed By: #### C MP #### [facility] [address] [address] [address] Dwight Waters Potassium [Moles/Vol] 4.2 mmol/L Normal 3.5-5.1 [facility] Comment on above: Performed By: #### C MP #### [facility] [address] [address] [address] Dwight Waters Protein [Mass/Vol] 7.9 g/dL Normal 6.4-8.2 [facility] Comment on above: Performed By: #### C MP #### [facility] [address] [address] [address] Dwight Waters Sodium [Moles/Vol] 140 mmol/L Normal 136-145 [facility] Comment on above: Performed By: #### C MP #### [facility] [address] [address] [address] Dwight Waters Urea nitrogen [Mass/Vol] 22.0 mg/dL Critically high 7.0-18.0 [facility] Comment on above: Performed By: #### C MP #### [facility] [address] [address] [address] Dwight Waters Urea nitrogen/Creatinine [Mass ratio] 17.1 mg/mg Normal [facility] Comment on above: Performed By: #### C MP #### [facility] [address] [address] [address] Dwight Waters URINE MICROSCOPIC ONLYon BACTERIA TRACE Abnormal NONE SEEN [facility] Comment on above: Performed By: #### U RTPCR #### [facility] [address] [address] [address] Dwight Waters Bacteria identified Cx Nom (U) INDICATED Normal [facility] Comment on above: Performed By: #### U RTPCR #### [facility] [address] [place] [address] Dr. Dwight Waters CAST NONE SEEN Normal NONE SEEN [facility] Comment on above: Performed By: #### U RTPCR #### [facility] [address] [place] [address] Dr. Dwight Waters Crystals LM Nom (Urine sed) NONE SEEN Normal NONE SEEN [facility] Comment on above: Performed By: #### U RTPCR #### [facility] [address] [place] [address] Dr. Dwight Waters Epithelial cells LM Ql (Urine sed) NONE SEEN Normal NONE SEEN /RARE [facility] Comment on above: Performed By: #### U RTPCR #### [facility] [address] [place] [address] Dr. Dwight Waters MUCOUS NONE SEEN Normal NONE SEEN [facility] Comment on above: Performed By: #### U RTPCR #### [facility] [address] [place] [address] Dr. Dwight Waters RBC 5-10 Abnormal 0-2 [facility] Comment on above: Performed By: #### U RTPCR #### [facility] [address] [place] [address] Dr. Dwight Waters WBC 10-20 Abnormal NONE SEEN [facility] Comment on above: Performed By: #### U RTPCR #### [facility] [address] [place] [address] Dr. Dwight Waters ALLOSCREEN RECIPIENT (POST T X PRA)on 06-13-2022 AB SPECIFICITY CLASS COMMENT Antibody Specificity testing performed by [employer]. cPRA calculation based on identification of HLA antibody specificities at MFI >2000 and/or presence of CREG antibodies. [facility] Comment on above: Some of the reagents used for testing in the Clinical Histocompatibility Laboratory have yet to be approved by the FDA. Our certification by CLIA to perform high complexity tests allows us to use these reagents in the context of a stringent QC program, and obviates the need for FDA approval.Testing performed by the [facility] Clinical Histocompatibility Laboratory. [facility] number: [id number]. CLIA number: [id number], Director: Carlito Merchant, PhD, D([facility]). ANTIBODY SPECIFICITY INTERPRETATION Detected [facility] CLASS I SPECIFICITIES Not detected [facility] CLASS II SPECIFICITIES Not detected [facility] HLA Ab (S) 0 % 0 [facility] EXTRA MICROon 06-13-2022 [facility] URINE CULTUREOrdered By: Jah Upton on 06-13-2022 Bacteria identified Cx Nom (Unsp spec) Growth [facility] Bacteria identified Cx Nom (Unsp spec) 10,000-50,000 CFU/mL Mixed skin shimon [facility] Comment on above: Multiple bacterial m orphotypes present. Suggest appropriate recollection if clinically indicated. [facility] CBC,PLATELETSon 06-12-2022 Erythrocyte distribution width (RBC) [Ratio] 13.0 % 10.9 - 14.3 % [facility] Hematocrit (Bld) [Volume fraction] 43.2 % 39.6 - 48.8 % [facility] Hemoglobin (Bld) [Mass/Vol] 13.9 g/dL 13.4 - 16.8 g/dL [facility] Interpretation and review of laboratory results Normal [facility] MCH (RBC) [Entitic mass] 28.7 pg 26.1 - 33.3 pg [facility] MCHC (RBC) [Mass/Vol] 32.2 g/dL 31.9 - 36.5 g/dL [facility] MCV (RBC) [Entitic vol] 89.1 fL 79.0 - 94.5 fL [facility] Platelet mean volume (Bld) [Entitic vol] 10.5 fL 8.7 - 12.3 fL [facility] Platelets (Bld) [#/Vol] 269 10*3/uL 146 - 337 K/uL [facility] RBC (Bld) [#/Vol] 4.85 10*6/uL [facility] WBC (Bld) [#/Vol] 7.68 10*3/uL 3.73 - 10. 10 K/uL [facility] CHEM 7 (LYTES,BUN,CREA,GLUC) on 06-12-2022 Anion gap [Moles/Vol] 14 mmol/L 7 - 17 mmol/L [facility] Chloride [Moles/Vol] 106 mmol/L 98 - 10 8 mmol/L [facility] CO2 [Moles/Vol] 25 mmol/L 21 - 31 mmol/L [facility] Creatinine [Mass/Vol] 1.26 mg/dL 0.70 - 1.30 mg/dL [facility] GFR/1.73 sq M.predicted CKD-EPI (S/P/Bld) [Vol rate/Area] 69 >=60 mL/min/1.73m 2 [facility] Comment on above: Reported eGFR is bas ed on the CKD-EPI 2020 equation using creatinine, age, and sex. Glucose [Mass/Vol] 83 mg/dL 70 - 99 mg/dL [facility] Osmolality Calc [Osmolality] 295 [facility] Potassium [Moles/Vol] 3.8 mmol/L 3.5 - 5.0 mmol/L [facility] Sodium [Moles/Vol] 141 mmol/L 135 - 145 mmol/L [facility] Urea nitrogen [Mass/Vol] 18 mg/dL 7 - 25 mg/dL [facility] Urea nitrogen/Creatinine [Mass ratio] 14 mg/mg [facility] GGTon 06-12-2022 Gamma glutamyl transferase [Catalytic activity/Vol] 20 U/L 8 - 64 U/L [facility] HEMOGLOBIN [id number] By: [employer] on 06-12-2022 Average glucose Estimated from glycated hemoglobin (Bld) [Mass/Vol] 126 mg/dL [facility] HbA1c (Bld) [Mass fraction] 6.0 % High 4.7 - 5.6 % [facility] Interpretation and review of laboratory results Abnormal [facility] HEPATIC FUNCTION PANELon Albumin [Mass/Vol] 4.3 g/dL 3.5 - 5.0 g/dL [facility] ALP [Catalytic activity/Vol] 78 U/L 32 - 126 U/L [facility] ALT [Catalytic activity/Vol] 12 U/L 10 - 52 U/L [facility] AST [Catalytic activity/Vol] 16 U/L 10 - 39 U/L [facility] Bilirubin [Mass/Vol] 1.0 mg/dL <1.5 [facility] Bilirubin.direct [Mass/Vol] 0.2 mg/dL <0.3 [facility] Protein [Mass/Vol] 7.5 g/dL 6.4 - 8.3 g/dL [facility] No Panel Informationon 06-12 Interpretation and review of laboratory results Normal [facility] PTH INTACTOrdered By: Marli Lizarraga on 06-12-2022 Interpretation and review of laboratory results Abnormal [facility] Parathyrin.intact [Mass/Vol] 79.7 pg/mL High 14.0 - 72.0 pg/mL [facility] URINALYSIS REFLEX TO CULTURE PERFORMABLEon 06-12-2022 Appearance (U) Clear Clear [facility] Bacteria LM Ql (Urine sed) ABSENT ABSENT [facility] Color (U) Yellow Yellow [facility] Epithelial cells.squamous LM Ql (Urine sed) 1/hpf = 1+ 1/hpf = 1+, 2-5/hpf = 2+, 0/hpf = 0+, ABSENT [facility] Glucose Test strip (U) [Mass/Vol] Negative Negative [facility] Interpretation and review of laboratory results Abnormal [facility] Ketones (U) [Mass/Vol] Trace Abnormal Negative [facility] Leukocyte esterase Test strip Ql (U) Small Abnormal Negative [facility] Nitrite Ql (U) Negative Negative [facility] pH (U) 5.5 [pH] 5.0 - 7.0 [facility] Protein (U) [Mass/Vol] 30 mg/dL Abnormal Negative [facility] RBC (U) [#/Vol] Trace Abnormal Negative [facility] RBC LM.HPF (Urine sed) [#/Area] 0-2 0 - 2 /HPF [facility] Specific gravity (U) [Rel density] 1.026 [facility] Urobilinogen (U) [Mass/Vol] 0.2 E.U./dL 0.2 E.U/dL, 1.0 E.U/dL [facility] WBC LM.HPF (Urine sed) [#/Area] 10-20 Abnormal 0 - 5 /HPF [facility] PROTEIN/CREA RATIO, RA NDOMon 06-12-2022 Creatinine (24H U) [Mass/Vol] 231.68 mg/dL [facility] Protein Unsp time (U) [Mass/Vol] 49 mg/dL [facility] Protein/Creatinine (U) [Mass ratio] 0.211 mg/g [facility] FK506 (TACROLIMUS) WHOLE BLO ODon 06-09-2022 Tacrolimus (FK506), Blood 9.8 ng/mL Normal 2.0-20.0 [facility] Comment on above: Result Comment: Trou gh (immediately following transplant) 15.0 . Trough (steady state, 2 weeks or more after transplant): 3.0 - 8.0 . Performed by LC-MS/MS technology. Performed By: #### U RTPCR #### [facility] [address] [address] [address] Dwight Waters ALBUMINon 06-06-2022 Albumin [Mass/Vol] 3.8 g/dL Normal 3.4-5.0 [facility] Comment on above: Performed By: #### C MP #### [facility] [address] [address] [address] Dwight Waters ALKALINE PHOSPHAon ALP [Catalytic activity/Vol] 82 U/L Normal 46-116 [facility] Comment on above: Performed By: #### C MP #### [facility] [address] [address] [address] Dwight Waters BILIRUBIN CONJUGATED (DIRECT )on 06-06-2022 BILI, CONJUGATED 0.2 mg/dL Normal 0.0-0.2 [facility] Comment on above: Performed By: #### C BC #### [facility] [address] [place] [address] Dr. Dwight Waters BILIRUBIN TOTALon 06-06-2022 Bilirubin [Mass/Vol] 1.0 mg/dL Normal 0.2-1.0 [facility] Comment on above: Performed By: #### C BC #### [facility] [address] [place] [address] Dr. Dwight Waters BUNon 06-06-2022 Urea nitrogen [Mass/Vol] 18.0 mg/dL Normal 7.0-18.0 [facility] Comment on above: Performed By: #### C BC #### [facility] [address] [place] [address] Dr. Dwight Waters CALCIUMon 06-06-2022 Calcium [Mass/Vol] 9.4 mg/dL Normal 8.5-10.1 [facility] Comment on above: Performed By: #### C MP #### [facility] [address] [place] [address] Dr. Dwight Waters CBC AUTO DIFFon 06-06-2022 BASO # 0.1 103/ul Normal 0.0-0.1 [facility] Comment on above: Performed By: #### U RTPCR #### [facility] [address] [place] [address] Dr. Dwight Waters Basophils/100 WBC (Bld) 0.8 % Normal 0.2-2.0 [facility] Comment on above: Performed By: #### U RTPCR #### [facility] [address] [place] [address] Dr. Dwight Waters EO # 0.3 103/ul Normal 0.0-0.7 [facility] Comment on above: Performed By: #### U RTPCR #### [facility] [address] [place] [address] Dr. Dwight Waters Eosinophils/100 WBC (Bld) 3.3 % Normal 0.9-7.0 [facility] Comment on above: Performed By: #### U RTPCR #### [facility] [address] [place] [address] Dr. Dwight Waters Erythrocyte distribution width (RBC) [Ratio] 12.4 % Normal 11.0-15.0 [facility] Comment on above: Performed By: #### U RTPCR #### [facility] [address] [place] [address] Dr. Dwight Waters Hematocrit (Bld) [Volume fraction] 45.1 % Normal 42.0-54.0 [facility] Comment on above: Performed By: #### U RTPCR #### [facility] [address] [place] [address] Dr. Dwight Waters Hemoglobin (Bld) [Mass/Vol] 14.4 g/dL Normal 14.0-18.0 [facility] Comment on above: Performed By: #### U RTPCR #### [facility] [address] [place] [address] Dr. Dwight Waters IG # 0.01 10e3/ul Normal 0.00-0.03 [facility] Comment on above: Performed By: #### U RTPCR #### [facility] [address] [place] [address] Dr. Dwight Waters IG % 0.1 % Normal 0.0-0.5 [facility] Comment on above: Performed By: #### U RTPCR #### [facility] [address] [place] [address] Dr. Dwight Waters LYMPH # 2.2 103/ul Normal 1.2-3.8 [facility] Comment on above: Performed By: #### U RTPCR #### [facility] [address] [place] [address] Dr. Dwight Waters Lymphocytes/100 WBC (Bld) 30.0 % Normal 20.5-60.0 [facility] Comment on above: Performed By: #### U RTPCR #### [facility] [address] [place] [address] Dr. Dwight Waters MANUAL DIFF REQ NO Normal [facility] Comment on above: Performed By: #### U RTPCR #### [facility] [address] [address] [address] Dwight Waters MCH (RBC) [Entitic mass] 28.2 pg Normal 25.9-34.0 [facility] Comment on above: Performed By: #### U RTPCR #### [facility] [address] [place] [address] Dr. Dwight Waters MCHC (RBC) [Mass/Vol] 31.9 g/dL Normal 29.9-35.2 [facility] Comment on above: Performed By: #### U RTPCR #### [facility] [address] [place] [address] Dr. Dwight Waters MCV (RBC) [Entitic vol] 88.3 fL Normal 80.0-94.0 [facility] Comment on above: Performed By: #### U RTPCR #### [facility] [address] [place] [address] Dr. Dwight Waters MONO # 0.6 103/ul Normal 0.3-0.8 [facility] Comment on above: Performed By: #### U RTPCR #### [facility] [address] [place] [address] Dr. Dwight Waters Monocytes/100 WBC (Bld) 8.2 % Normal 1.7-12.0 [facility] Comment on above: Performed By: #### U RTPCR #### [facility] [address] [place] [address] Dr. Dwight Waters NEUT # 4.3 103/ul Normal 1.4-6.5 [facility] Comment on above: Performed By: #### U RTPCR #### [facility] [address] [place] [address] Dr. Dwight Waters Neutrophils/100 WBC (Bld) 57.6 % Normal 43.0-75.0 [facility] Comment on above: Performed By: #### U RTPCR #### [facility] [address] [place] [address] Dr. Dwight Waters Platelet mean volume (Bld) [Entitic vol] 9.7 fL Normal 9.5-13.5 [facility] Comment on above: Performed By: #### U RTPCR #### [facility] [address] [address] [address] Dwight Waters PLT 297 103/ul Normal 150-450 [facility] Comment on above: Performed By: #### U RTPCR #### [facility] [address] [address] [address] Dwight Waters RBC 5.11 106/ul Normal 4.70-6.10 [facility] Comment on above: Performed By: #### U RTPCR #### [facility] [address] [address] [address] Dwight Waters WBC 7.5 103/ul Normal 4.0-11.0 [facility] Comment on above: Performed By: #### U RTPCR #### [facility] [address] [place] [address] Dr. Dwight Waters CHLORIDEon 06-06-2022 Chloride [Moles/Vol] 107 mmol/L Normal 98-107 [facility] Comment on above: Performed By: #### C BC #### [facility] [address] [place] [address] Dr. Dwight Waters CO2on 06-06-2022 CO2 [Moles/Vol] 27.4 mmol/L Normal 21.0-32.0 [facility] Comment on above: Performed By: #### C BC #### [facility] [address] [place] [address] Dr. Dwight Waters CREATININEon 06-06-2022 Creatinine [Mass/Vol] 1.20 mg/dL Normal 0.70-1.30 [facility] Comment on above: Performed By: #### C BC #### [facility] [address] [place] [address] Dr. Dwight Waters EGFR-AF PARAGUAYAN >60 Normal >=60 [facility] Comment on above: Performed By: #### C BC #### [facility] [address] [place] [address] Dr. Dwight Waters EGFR-NON AF PARAGUAYAN >60 Normal >=60 [facility] Comment on above: Performed By: #### C BC #### [facility] [address] [place] [address] Dr. Dwight Waters GGTon 06-06-2022 Gamma glutamyl transferase [Catalytic activity/Vol] 29 U/L Normal 15-85 [facility] Comment on above: Performed By: #### C BC #### [facility] [address] [place] [address] Dr. Dwight Waters GLUCOSE BLOODon 06-06-2022 Glucose [Mass/Vol] 112 mg/dL Critically high 74-106 [facility] Comment on above: Performed By: #### C BC #### [facility] [address] [place] [address] Dr. Dwight Waters MAGNESIUMon 06-06-2022 Magnesium [Mass/Vol] 1.3 mg/dL Critically low 1.8-2.4 [facility] Comment on above: Performed By: #### C MP #### [facility] [address] [place] [address] Dr. Dwight Waters NAon 06-06-2022 Sodium [Moles/Vol] 141 mmol/L Normal 136-145 [facility] Comment on above: Performed By: #### C MP #### [facility] [address] [place] [address] Dr. Dwight Waters PHOSPHORUSon 06-06-2022 Phosphate [Mass/Vol] 3.1 mg/dL Normal 2.6-4.7 [facility] Comment on above: Performed By: #### C MP #### [facility] [address] [place] [address] Dr. Dwight Waters POTASSIUMon 06-06-2022 Potassium [Moles/Vol] 4.3 mmol/L Normal 3.5-5.1 [facility] Comment on above: Performed By: #### C BC #### [facility] [address] [place] [address] Dr. Dwight Waters SGOTon 06-06-2022 AST [Catalytic activity/Vol] 16 U/L Normal 15-37 [facility] Comment on above: Performed By: #### C BC #### [facility] [address] [place], [place] [id number] Dr. Dwight Waters SGPTon 06-06-2022 ALT [Catalytic activity/Vol] 50 U/L Normal 16-63 [facility] Comment on above: Performed By: #### C #### [facility] [address] [place] [address] Dr. Dwight Waters Bacteria identified Cx Nom ( Bld)on 05-21-2022 Bacteria identified Cx Nom (Unsp spec) NO GROWTH DAY 5 OF 5 [facility] Results may be compr omised due to volume of BACT\ALERT bottle exceeding 10mLs . The optimal blood volume is 8-10 mls per aerobic/anaerobic blood culture bottle. [facility] CALCIUMon 05-20-2022 Calcium [Mass/Vol] 9.1 mg/dL 8.6 - 10. 5 mg/dL [facility] CBC,PLATELETSon 05-20-2022 Erythrocyte distribution width (RBC) [Ratio] 12.5 % 10.9 - 14.3 % [facility] Hematocrit (Bld) [Volume fraction] 37.1 % Low 39.6 - 48.8 % [facility] Hemoglobin (Bld) [Mass/Vol] 12.3 g/dL Low 13.4 - 16.8 g/dL [facility] Interpretation and review of laboratory results Abnormal [facility] MCH (RBC) [Entitic mass] 28.9 pg 26.1 - 33.3 pg [facility] MCHC (RBC) [Mass/Vol] 33.2 g/dL 31.9 - 36.5 g/dL [facility] MCV (RBC) [Entitic vol] 87.3 fL 79.0 - 94.5 fL [facility] Platelet mean volume (Bld) [Entitic vol] 9.9 fL 8.7 - 12.3 fL [facility] Platelets (Bld) [#/Vol] 234 10*3/uL 146 - 337 K/uL [facility] RBC (Bld) [#/Vol] 4.25 10*6/uL Low [facility] WBC (Bld) [#/Vol] 6.31 10*3/uL 3.73 - 10. 10 K/uL [facility] CHEM 7 (LYTES,BUN,CREA,GLUC) on 05-20-2022 Anion gap [Moles/Vol] 15 mmol/L 7 - 17 mmol/L [facility] Chloride [Moles/Vol] 111 mmol/L High 98 - 10 8 mmol/L [facility] CO2 [Moles/Vol] 22 mmol/L 21 - 31 mmol/L [facility] Creatinine [Mass/Vol] 1.10 mg/dL 0.70 - 1.30 mg/dL [facility] GFR/1.73 sq M.predicted CKD-EPI (S/P/Bld) [Vol rate/Area] 81 >=60 mL/min/1.73m 2 [facility] Comment on above: Reported eGFR is bas ed on the CKD-EPI 2020 equation using creatinine, age, and sex. Glucose [Mass/Vol] 92 mg/dL 70 - 99 mg/dL [facility] Interpretation and review of laboratory results Abnormal [facility] Osmolality Calc [Osmolality] 302 [facility] Potassium [Moles/Vol] 4.4 mmol/L 3.5 - 5.0 mmol/L [facility] Sodium [Moles/Vol] 144 mmol/L 135 - 145 mmol/L [facility] Urea nitrogen [Mass/Vol] 18 mg/dL 7 - 25 mg/dL [facility] Urea nitrogen/Creatinine [Mass ratio] 16 mg/mg [facility] MAGNESIUMon 05-20-2022 Interpretation and review of laboratory results Abnormal [facility] Magnesium [Mass/Vol] 1.5 mg/dL Low 1.6 - 2 .6 mg/dL [facility] No Panel Informationon 05-20 Interpretation and review of laboratory results Normal [facility] PHOSPHATE, INORGANICon 05-20 Phosphate [Mass/Vol] 3.3 mg/dL 2.2 - 4 .6 mg/dL [facility] RF Unspecified body region V iews during [...] projections of kidneys, ureters, and bladder. FINDINGS: Resident Medical Officer images: Resident Medical Officer radiographs of the abdomen reveal a nonobstructive [...] Contrast refluxes up the ureter to the washoe right kidney that is grossly normal appearing. [...] projections of kidneys, ureters, and bladder. FINDINGS: Resident Medical Officer images: Resident Medical Officer radiographs of the abdomen reveal a nonobstructive [...] Contrast refluxes up the ureter to the [place]hoe right kidney that is grossly normal appearing. [...] I have reviewed and approved this report. [facility] Radiology Study observation (narrative) [facility] RF Unspecified body region V iews during surgeryOrdered By: Lizz Campos on 05-20-2022 [facility] Work Phone: CALCIUMon 05-19-2022 Calcium [Mass/Vol] 9.2 mg/dL 8.6 - 10. 5 mg[facility] Calcium [Mass/Vol] 8.6 mg/dL 8.6 - 10. 5 mg/dL [facility] CBC,PLATELETSon 05-19-2022 Erythrocyte distribution width (RBC) [Ratio] 12.4 % 10.9 - 14.3 % [facility] Hematocrit (Bld) [Volume fraction] 38.0 % Low 39.6 - 48.8 % [facility] Hemoglobin (Bld) [Mass/Vol] 12.0 g/dL Low 13.4 - 16.8 g/dL [facility] Interpretation and review of laboratory results Abnormal [facility] MCH (RBC) [Entitic mass] 28.6 pg 26.1 - 33.3 pg [facility] MCHC (RBC) [Mass/Vol] 31.6 g/dL Low 31.9 - 36.5 g/dL [facility] MCV (RBC) [Entitic vol] 90.5 fL 79.0 - 94.5 fL [facility] Platelet mean volume (Bld) [Entitic vol] 9.7 fL 8.7 - 12.3 fL [facility] Platelets (Bld) [#/Vol] 199 10*3/uL 146 - 337 K/uL [facility] RBC (Bld) [#/Vol] 4.20 10*6/uL Low [facility] WBC (Bld) [#/Vol] 6.81 10*3/uL 3.73 - 10. 10 K/uL [facility] CHEM 7 (LYTES,BUN,CREA,GLUC) on 05-19-2022 Anion gap [Moles/Vol] 13 mmol/L 7 - 17 mmol/L [facility] Chloride [Moles/Vol] 105 mmol/L 98 - 10 8 mmol/L [facility] CO2 [Moles/Vol] 30 mmol/L 21 - 31 mmol/L [facility] Creatinine [Mass/Vol] 1.39 mg/dL High 0.70 - 1.30 mg/dL [facility] GFR/1.73 sq M.predicted CKD-EPI (S/P/Bld) [Vol rate/Area] 61 >=60 mL/min/1.73m 2 [facility] Comment on above: Reported eGFR is bas ed on the CKD-EPI 2021 equation using creatinine, age, and sex. Glucose [Mass/Vol] 121 mg/dL High 70 - 99 mg/dL [facility] Interpretation and review of laboratory results Abnormal [facility] Osmolality Calc [Osmolality] 303 [facility] Potassium [Moles/Vol] 3.8 mmol/L 3.5 - 5.0 mmol/L [facility] Sodium [Moles/Vol] 144 mmol/L 135 - 145 mmol/L [facility] Urea nitrogen [Mass/Vol] 18 mg/dL 7 - 25 mg/dL [facility] Urea nitrogen/Creatinine [Mass ratio] 13 mg/mg [facility] Anion gap [Moles/Vol] 15 mmol/L 7 - 17 mmol/L [facility] Chloride [Moles/Vol] 106 mmol/L 98 - 10 8 mmol/L [facility] CO2 [Moles/Vol] 24 mmol/L 21 - 31 mmol/L [facility] Creatinine [Mass/Vol] 1.46 mg/dL High 0.70 - 1.30 mg/dL [facility] GFR/1.73 sq M.predicted CKD-EPI (S/P/Bld) [Vol rate/Area] 58 Low >=60 mL/min/1.73m 2 [facility] Comment on above: Reported eGFR is bas ed on the CKD-EPI 202 equation using creatinine, age, and sex. Glucose [Mass/Vol] 103 mg/dL High 70 - 99 mg/dL [facility] Interpretation and review of laboratory results Abnormal [facility] Osmolality Calc [Osmolality] 298 [facility] Potassium [Moles/Vol] 3.9 mmol/L 3.5 - 5.0 mmol/L [facility] Sodium [Moles/Vol] 141 mmol/L 135 - 145 mmol/L [facility] Urea nitrogen [Mass/Vol] 21 mg/dL 7 - 25 mg/dL [facility] Urea nitrogen/Creatinine [Mass ratio] 14 mg/mg [facility] MAGNESIUMon 05-19-2022 Magnesium [Mass/Vol] 2.0 mg/dL 1.6 - 2 .6 mg/dL [facility] Magnesium [Mass/Vol] 1.7 mg/dL 1.6 - 2 .6 mg/dL [facility] No Panel Informationon 05-19 Interpretation and review of laboratory results Normal [facility] Interpretation and review of laboratory results Normal [facility] PHOSPHATE, INORGANICon 05-19 Phosphate [Mass/Vol] 3.0 mg/dL 2.2 - 4 .6 mg/dL [facility] Phosphate [Mass/Vol] 2.7 mg/dL 2.2 - 4 .6 mg/dL [facility] CALCIUMon 05-18-2022 Calcium [Mass/Vol] 9.1 mg/dL 8.6 - 10. 5 mg/dL [facility] CBC,PLATELETSon 05-18-2022 Erythrocyte distribution width (RBC) [Ratio] 12.5 % 10.9 - 14.3 % [facility] Hematocrit (Bld) [Volume fraction] 37.3 % Low 39.6 - 48.8 % [facility] Hemoglobin (Bld) [Mass/Vol] 11.9 g/dL Low 13.4 - 16.8 g/dL [facility] Interpretation and review of laboratory results Abnormal [facility] MCH (RBC) [Entitic mass] 28.9 pg 26.1 - 33.3 pg [facility] MCHC (RBC) [Mass/Vol] 31.9 g/dL 31.9 - 36.5 g/dL [facility] MCV (RBC) [Entitic vol] 90.5 fL 79.0 - 94.5 fL [facility] Platelet mean volume (Bld) [Entitic vol] 10.1 fL 8.7 - 12.3 fL [facility] Platelets (Bld) [#/Vol] 189 10*3/uL 146 - 337 K/uL [facility] RBC (Bld) [#/Vol] 4.12 10*6/uL Low [facility] WBC (Bld) [#/Vol] 10.19 10*3/uL High 3.73 - 10 .10 [facility]M 7 (LYTES,BUN,CREA,GLUC) on 05-18-2022 Anion gap [Moles/Vol] 13 mmol/L 7 - 17 mmol/L [facility] Chloride [Moles/Vol] 102 mmol/L 98 - 10 8 mmol/L [facility] CO2 [Moles/Vol] 26 mmol/L 21 - 31 mmol/L [facility] Creatinine [Mass/Vol] 1.91 mg/dL High 0.70 - 1.30 mg/dL [facility] GFR/1.73 sq M.predicted CKD-EPI (S/P/Bld) [Vol rate/Area] 42 Low >=60 mL/min/1.73m 2 [facility] Comment on above: Reported eGFR is bas ed on the CKD-EPI 2020 equation using creatinine, age, and sex. Glucose [Mass/Vol] 158 mg/dL High 70 - 99 mg/dL [facility] Osmolality Calc [Osmolality] 297 [facility] Potassium [Moles/Vol] 4.0 mmol/L 3.5 - 5.0 mmol/L [facility] Sodium [Moles/Vol] 137 mmol/L 135 - 145 mmol/L [facility] Urea nitrogen [Mass/Vol] 30 mg/dL High 7 - 25 mg/dL [facility] Urea nitrogen/Creatinine [Mass ratio] 16 mg/mg [facility] CHEM 7 (LYTES,BUN,CREA,GLUC) Ordered By: Tamiko Thapa on 05-18-2022 Anion gap [Moles/Vol] 13 mmol/L 7 - 17 mmol/L [facility] Chloride [Moles/Vol] 104 mmol/L 98 - 10 8 mmol/L [facility] CO2 [Moles/Vol] 26 mmol/L 21 - 31 mmol/L [facility] Creatinine [Mass/Vol] 2.96 mg/dL High 0.70 - 1.30 mg/dL [facility] GFR/1.73 sq M.predicted CKD-EPI (S/P/Bld) [Vol rate/Area] 25 Low >=60 mL/min/1.73m 2 [facility] Comment on above: Reported eGFR is bas ed on the CKD-EPI 2020 equation using creatinine, age, and sex. Glucose [Mass/Vol] 136 mg/dL High 70 - 99 mg/dL [facility] Interpretation and review of laboratory results Abnormal [facility] Osmolality Calc [Osmolality] 304 [facility] Potassium [Moles/Vol] 4.2 mmol/L 3.5 - 5.0 mmol/L [facility] Sodium [Moles/Vol] 139 mmol/L 135 - 145 mmol/L [facility] Urea nitrogen [Mass/Vol] 41 mg/dL High 7 - 25 mg/dL [facility] Urea nitrogen/Creatinine [Mass ratio] 14 mg/mg [facility] MAGNESIUMon 05-18-2022 Magnesium [Mass/Vol] 2.2 mg/dL 1.6 - 2 .6 mg/dL [facility] Interpretation and review of laboratory results Normal [facility] Magnesium [Mass/Vol] 1.7 mg/dL 1.6 - 2 .6 mg/dL [facility] No Panel Informationon 05-18 Interpretation and review of laboratory results Abnormal [facility] Interpretation and review of laboratory results Normal [facility] PHOSPHATE, INORGANICon 05-18 Phosphate [Mass/Vol] 2.0 mg/dL Low 2.2 - 4 .6 mg/dL [facility] Interpretation and review of laboratory results Normal [facility] Phosphate [Mass/Vol] 2.8 mg/dL 2.2 - 4 .6 mg/dL [facility] PT,INR,PTTon 05-18-2022 aPTT Coag (PPP) [Time] 31.0 s [facility] INR Coag (Bld) [Relative time] 1.1 {INR} [facility] Interpretation and review of laboratory results Abnormal [facility] PT Coag (PPP) [Time] 14.[address] [facility] URINE CULTUREOrdered By: Sylvia Campos on 05-18-2022 Bacteria identified Cx Nom (Unsp spec) No Growth [facility] CBC,PLATELETSon 05-17-2022 Erythrocyte distribution width (RBC) [Ratio] 12.8 % 10.9 - 14.3 % [facility] Hematocrit (Bld) [Volume fraction] 42.8 % 39.6 - 48.8 % [facility] Hemoglobin (Bld) [Mass/Vol] 13.3 g/dL Low 13.4 - 16.8 g/dL [facility] Interpretation and review of laboratory results Abnormal [facility] MCH (RBC) [Entitic mass] 28.9 pg 26.1 - 33.3 pg [facility] MCHC (RBC) [Mass/Vol] 31.1 g/dL Low 31.9 - 36.5 g/dL [facility] MCV (RBC) [Entitic vol] 92.8 fL 79.0 - 94.5 fL [facility] Platelet mean volume (Bld) [Entitic vol] 10.3 fL 8.7 - 12.3 fL [facility] Platelets (Bld) [#/Vol] 188 10*3/uL 146 - 337 K/uL [facility] RBC (Bld) [#/Vol] 4.61 10*6/uL [facility] WBC (Bld) [#/Vol] 16.61 10*3/uL High 3.73 - 10 .10 K/uL [facility] CHEM 7 (LYTES,BUN,CREA,GLUC) Ordered By: Kaylah Mc on 05-17-2022 Anion gap [Moles/Vol] 15 mmol/L 7 - 17 mmol/L [facility] Chloride [Moles/Vol] 103 mmol/L 98 - 10 8 mmol/L [facility] CO2 [Moles/Vol] 23 mmol/L 21 - 31 mmol/L [facility] Creatinine [Mass/Vol] 5.95 mg/dL High 0.70 - 1.30 mg/dL [facility] GFR/1.73 sq M.predicted CKD-EPI (S/P/Bld) [Vol rate/Area] 11 Low >=60 mL/min/1.73m 2 [facility] Comment on above: Reported eGFR is bas ed on the CKD-EPI 2020 equation using creatinine, age, and sex. Glucose [Mass/Vol] 165 mg/dL High 70 - 99 mg/dL [facility] Interpretation and review of laboratory results Abnormal [facility] Osmolality Calc [Osmolality] 305 [facility] Potassium [Moles/Vol] 4.6 mmol/L 3.5 - 5.0 mmol/L [facility] Sodium [Moles/Vol] 136 mmol/L 135 - 145 mmol/L [facility] Urea nitrogen [Mass/Vol] 52 mg/dL High 7 - 25 mg/dL [facility] Urea nitrogen/Creatinine [Mass ratio] 9 mg/mg [facility] CHEM 7 (LYTES,BUN,CREA,GLUC) Ordered By: Kehinde Gutierrez on 05-17-2022 Anion gap [Moles/Vol] 24 mmol/L High 7 - 17 mmol/L [facility] Chloride [Moles/Vol] 100 mmol/L 98 - 10 8 mmol/L [facility] CO2 [Moles/Vol] 16 mmol/L Low 21 - 31 mmol/L [facility] Creatinine [Mass/Vol] 8.08 mg/dL High 0.70 - 1.30 mg/dL [facility] GFR/1.73 sq M.predicted CKD-EPI (S/P/Bld) [Vol rate/Area] 7 Low >=60 mL/min/1.73m 2 [facility] Comment on above: Reported eGFR is bas ed on the CKD-EPI 2020 equation using creatinine, age, and sex. Glucose [Mass/Vol] 164 mg/dL High 70 - 99 mg/dL [facility] Interpretation and review of laboratory results Abnormal [facility] Osmolality Calc [Osmolality] 305 [facility] Potassium [Moles/Vol] 5.0 mmol/L 3.5 - 5.0 mmol/L [facility] Sodium [Moles/Vol] 135 mmol/L 135 - 145 mmol/L [facility] Urea nitrogen [Mass/Vol] 56 mg/dL High 7 - 25 mg/dL [facility] Urea nitrogen/Creatinine [Mass ratio] 7 mg/mg [facility] LAVENDER TOP TUBEon 05-17-20 [facility] MAGNESIUMon 05-17-2022 Interpretation and review of laboratory results Normal [facility] Magnesium [Mass/Vol] 1.8 mg/dL 1.6 - 2 .6 mg/dL [facility] Interpretation and review of laboratory results Normal [facility] Magnesium [Mass/Vol] 1.6 mg/dL 1.6 - 2 .6 mg/dL [facility] No Panel Informationon 05-17 [facility] PHOSPHATE, INORGANICon 05-17 Interpretation and review of laboratory results Abnormal [facility] Phosphate [Mass/Vol] 4.9 mg/dL High 2.2 - 4 .6 mg/dL [facility] PT,INR,PTTon 05-17-2022 aPTT Coag (PPP) [Time] 33.0 s [facility] INR Coag (Bld) [Relative time] 1.3 {INR} High [facility] Interpretation and review of laboratory results Abnormal [facility] PT Coag (PPP) [Time] 15.[address] [facility] Portable XR Chest Viewson IMPRESSION: [...] Stable cardiomegaly. IMPRESSION IMPRESSION: No acute findings. [facility] Radiology Study observation (narrative) [facility] Portable XR Chest ViewsOrder ed By: David Sanz on 05-17-2022 [facility] Work Phone: URINALYSISOrdered By: Michael patel Ma on 05-17-2022 Appearance (U) Cloudy Abnormal Clear [facility] [facility] Comment on above: Results may be inacc urate due to color interference. Clinical correlation recommended. Bacteria LM Ql (Urine sed) ABSENT ABSENT [facility] Color (U) Red Abnormal Yellow [facility] Comment on above: Results may be inacc urate due to color interference. Clinical correlation recommended. Epithelial cells.squamous LM Ql (Urine sed) ABSENT 1/hpf = 1+, 2-5/hpf = 2+, 0/hpf = 0+, ABSENT [facility] Glucose Test strip (U) [Mass/Vol] Negative Negative [facility] Comment on above: Results may be inacc urate due to color interference. Clinical correlation recommended. Interpretation and review of laboratory results Abnormal [facility] Ketones (U) [Mass/Vol] Trace Abnormal Negative [facility] Comment on above: Results may be inacc urate due to color interference. Clinical correlation recommended. Leukocyte esterase Test strip Ql (U) Large Abnormal Negative [facility] Comment on above: Results may be inacc urate due to color interference. Clinical correlation recommended. Nitrite Ql (U) Negative Negative [facility] Comment on above: Results may be inacc urate due to color interference. Clinical correlation recommended. pH (U) 5.0 [pH] 5.0 - 7.0 [facility] Comment on above: Results may be inacc urate due to color interference. Clinical correlation recommended. Protein (U) [Mass/Vol] mg/dL Abnormal Negative [facility] Comment on above: Results may be inacc urate due to color interference. Clinical correlation recommended. RBC (U) [#/Vol] Large Abnormal Negative [facility] Comment on above: Results may be inacc urate due to color interference. Clinical correlation recommended. RBC LM.HPF (Urine sed) [#/Area] /[HPF] Abnormal 0 - 2 /HPF [facility] Specific gravity (U) [Rel density] 1.016 [facility] Comment on above: Results may be inacc urate due to color interference. Clinical correlation recommended. Urobilinogen (U) [Mass/Vol] 0.2 E.U./dL 0.2 E.U/dL, 1.0 E.U/dL [facility] Comment on above: Results may be inacc urate due to color interference. Clinical correlation recommended. WBC LM.HPF (Urine sed) [#/Area] /[HPF] Abnormal 0 - 5 /HPF [facility] URINE CULTUREOrdered By: Tyler Tiwari on 05-17-2022 Bacteria identified Cx Nom (Unsp spec) No Growth [facility] CBC,PLATELETSon 05-16-2022 Erythrocyte distribution width (RBC) [Ratio] 12.9 % 10.9 - 14.3 % [facility] Hematocrit (Bld) [Volume fraction] 46.5 % 39.6 - 48.8 % [facility] Hemoglobin (Bld) [Mass/Vol] 14.7 g/dL 13.4 - 16.8 g/dL [facility] Interpretation and review of laboratory results Abnormal [facility] MCH (RBC) [Entitic mass] 28.3 pg 26.1 - 33.3 pg [facility] MCHC (RBC) [Mass/Vol] 31.6 g/dL Low 31.9 - 36.5 g/dL [facility] MCV (RBC) [Entitic vol] 89.6 fL 79.0 - 94.5 fL [facility] Platelet mean volume (Bld) [Entitic vol] 10.3 fL 8.7 - 12.3 fL [facility] Platelets (Bld) [#/Vol] 188 10*3/uL 146 - 337 K/uL [facility] RBC (Bld) [#/Vol] 5.19 10*6/uL [facility] WBC (Bld) [#/Vol] 12.55 10*3/uL High 3.73 - 10 .10 K/uL [facility] CHEM 7 (LYTES,BUN,CREA,GLUC) Ordered By: Alma Pena on 05-16-2022 Anion gap [Moles/Vol] 14 mmol/L 7 - 17 mmol/L [facility] Chloride [Moles/Vol] 103 mmol/L 98 - 10 8 mmol/L [facility] CO2 [Moles/Vol] 22 mmol/L 21 - 31 mmol/L [facility] Creatinine [Mass/Vol] 6.09 mg/dL High 0.70 - 1.30 mg/dL [facility] GFR/1.73 sq M.predicted CKD-EPI (S/P/Bld) [Vol rate/Area] 10 Low >=60 mL/min/1.73m 2 [facility] Comment on above: Reported eGFR is bas ed on the CKD-EPI 2020 equation using creatinine, age, and sex. Glucose [Mass/Vol] 134 mg/dL High 70 - 99 mg/dL [facility] Interpretation and review of laboratory results Abnormal [facility] Osmolality Calc [Osmolality] 298 [facility] Potassium [Moles/Vol] 4.9 mmol/L 3.5 - 5.0 mmol/L [facility] Sodium [Moles/Vol] 134 mmol/L Low 135 - 145 mmol/L [facility] Comment on above: Results inconsistent with previous results Urea nitrogen [Mass/Vol] 49 mg/dL High 7 - 25 mg/dL [facility] Urea nitrogen/Creatinine [Mass ratio] 8 mg[facility] CHEM 7 (LYTES,BUN,CREA,GLUC) on 05-16-2022 Anion gap [Moles/Vol] 17 mmol/L 7 - 17 mmol/L [facility] Chloride [Moles/Vol] 106 mmol/L 98 - 10 8 mmol/L [facility] CO2 [Moles/Vol] 22 mmol/L 21 - 31 mmol/L [facility] Creatinine [Mass/Vol] 5.23 mg/dL High 0.70 - 1.30 mg/dL [facility] GFR/1.73 sq M.predicted CKD-EPI (S/P/Bld) [Vol rate/Area] 13 Low >=60 mL/min/1.73m 2 [facility] Comment on above: Reported eGFR is bas ed on the CKD-EPI 2020 equation using creatinine, age, and sex. Glucose [Mass/Vol] 116 mg/dL High 70 - 99 mg/dL [facility] Interpretation and review of laboratory results Abnormal [facility] Osmolality Calc [Osmolality] 305 [facility] Potassium [Moles/Vol] 4.6 mmol/L 3.5 - 5.0 mmol/L [facility] Sodium [Moles/Vol] 140 mmol/L 135 - 145 mmol/L [facility] Urea nitrogen [Mass/Vol] 42 mg/dL High 7 - 25 mg/dL [facility] Urea nitrogen/Creatinine [Mass ratio] 8 mg/mg [facility] EXTRA MICROon 05-16-2022 [facility] LT BLUE TOP TUBEon 2 [facility] LYTES (NA, K, CL) - URINE - RANDOMon 05-16-2022 Chloride (24H U) [Moles/Vol] 68 mmol/L [facility] Potassium (24H U) [Moles/Vol] 36.7 mmol/L [facility] Sodium (24H U) [Moles/Vol] 55 mmol/L [facility] The reference range has not been established for random urine specimens. The test result should be integrated into the clinical context for interpretation. [facility] MAGNESIUMon 05-16-2022 Interpretation and review of laboratory results Normal [facility] Magnesium [Mass/Vol] 1.7 mg/dL 1.6 - 2 .6 mg/dL [facility] NOVEL CORONAVIRUS PCROrdered By: Edson Candelraio on 05-16-2022 SARS-CoV-2 (COVID-19) RNA ESTELITA+probe Ql (Unsp spec) Not detected NOT DETECTED [facility] Comment on above: [facility] Negative results [...] use authorization for use by authorized laboratories. [facility] No Panel Informationon 05-16 [facility] OSMOLALITY, URINEon 05-16-20 Interpretation and review of laboratory results Normal [facility] Osmolality (U) [Osmolality] 320 mosm/kg [facility] The reference range has not been established for random urine specimens. The test result should be integrated into the clinical context for interpretation. [facility] PROCALCITONINon 05-16-2022 Interpretation and review of laboratory results Normal [facility] Procalcitonin [Mass/Vol] 0.18 ng/mL <0.50 [facility] Comment on above: Procalcitonin [...] and trend procalcitonin in various clinical settings. [email or web address] Two common cutoffs associated with bacterial infections are as follows. Respiratory tract infections: >0.25 ng/mL Sepsis/septic shock: >0.5 ng/mL Procalcitonin should not be used alone as a diagnostic tool, however. All procalcitonin results should be interpreted in association with the patients clinical condition and all laboratory findings. [facility] PT,INR,PTTon 05-16-2022 aPTT Coag (PPP) [Time] 30.3 s [facility] INR Coag (Bld) [Relative time] 1.1 {INR} [facility] Interpretation and review of laboratory results Normal [facility] PT Coag (PPP) [Time] 14.[address] [facility] SARS-CoV-2 (COVID-19) RNA NA A+probe Ql (Unsp spec)Ordered By: Edson Candelario on 05-16-2022 Interpretation and review of laboratory results Normal [facility] TACROLIMUS LEVEL, TROUGH (PA E DRUG LEVEL)Ordered By: Mariama Nick on 05-16-2022 Interpretation and review of laboratory results Normal [facility] Tacrolimus (Bld) [Mass/Vol] 4.1 ng/mL Bone Marrow Transplant: 4.0-12.0, Therapeutic: 5.0-15.0 [facility] Method performed is a chemiluminescent microparticle immunoasssay on the [employer] i2000. The range is based on experience at [facility] and users should be aware that target concentrations vary widely depending on concomitant therapy, time post-transplant, and desired degree of immunosuppression. [facility] URINE PROTEIN/CREA RATIO, RA Smiley 05-16-2022 Creatinine (24H U) [Mass/Vol] 59.82 mg/dL [facility] Protein Unsp time (U) [Mass/Vol] 111 mg/dL [facility] Protein/Creatinine (U) [Mass ratio] 1.856 mg/g [facility] US for transplanted kidney l princess 05-16-2022 [...] appearing vascular flow in the transplant kidney. [facility] Radiology Study observation (narrative) [facility] US for transplanted kidney l imitedOrdered By: Rosendo Matute on 05-16-2022 [facility] Work Phone: CBC AND ELECTRONIC DIFFon Basophils (Bld) [#/Vol] 10*3/uL 0.00 - 0.09 K/uL [facility] Basophils/100 WBC (Bld) 0.2 % [facility] Differential cell count method Nom (Bld) Electronic Differential [facility] Eosinophils (Bld) [#/Vol] 10*3/uL 0.00 - 0.48 K/uL [facility] Eosinophils/100 WBC (Bld) 0.0 % [facility] Erythrocyte distribution width (RBC) [Ratio] 12.8 % 10.9 - 14.3 % [facility] Hematocrit (Bld) [Volume fraction] 46.0 % 39.6 - 48.8 % [facility] Hemoglobin (Bld) [Mass/Vol] 14.6 g/dL 13.4 - 16.8 g/dL [facility] Immature granulocytes (Bld) [#/Vol] 0.07 10*3/uL <=0.08 [facility] Immature granulocytes/100 WBC (Bld) 0.4 % [facility] Interpretation and review of laboratory results Abnormal [facility] Lymphocytes (Bld) [#/Vol] 1.49 10*3/uL 0.83 - 3.57 K/uL [facility] Lymphocytes/100 WBC (Bld) 9.4 % [facility] MCH (RBC) [Entitic mass] 28.2 pg 26.1 - 33.3 pg [facility] MCHC (RBC) [Mass/Vol] 31.7 g/dL Low 31.9 - 36.5 g/dL [facility] MCV (RBC) [Entitic vol] 89.0 fL 79.0 - 94.5 fL [facility] Monocytes (Bld) [#/Vol] 1.45 10*3/uL High 0.24 - 0.93 K/uL [facility] Monocytes/100 WBC (Bld) 9.2 % [facility] Neutrophils (Bld) [#/Vol] 12.77 10*3/uL High 1.57 - 6.19 K/uL [facility] Nucleated RBC/100 WBC (Bld) [Ratio] 0.0 % <=0.2 /100 WBC [facility] Platelet mean volume (Bld) [Entitic vol] 9.9 fL 8.7 - 12.3 fL [facility] Platelets (Bld) [#/Vol] 250 10*3/uL 146 - 337 K/uL [facility] RBC (Bld) [#/Vol] 5.17 10*6/uL [facility] Segmented neutrophils/100 WBC (Bld) 80.8 % [facility] WBC (Bld) [#/Vol] 15.81 10*3/uL High 3.73 - 10 .10 K/uL [facility] CBC AUTO DIFFon 05-15-2022 BASO # 0.0 103/ul Normal 0.0-0.1 [facility] Comment on above: Performed By: #### C BC #### [facility] [address] [place] [address] Dr. Dwight Waters Basophils/100 WBC (Bld) 0.3 % Normal 0.2-2.0 [facility] Comment on above: Performed By: #### C BC #### [facility] [address] [place] [address] Dr. Dwight Waters EO # 0.1 103/ul Normal 0.0-0.7 [facility] Comment on above: Performed By: #### C BC #### [facility] [address] [place] [address] Dr. Dwight Waters Eosinophils/100 WBC (Bld) 0.8 % Critically low 0.9-7.0 [facility] Comment on above: Performed By: #### C BC #### [facility] [address] [place] [address] Dr. Dwight Waters Erythrocyte distribution width (RBC) [Ratio] 12.7 % Normal 11.0-15.0 [facility] Comment on above: Performed By: #### C BC #### [facility] [address] [place] [address] Dr. Dwight Waters Hematocrit (Bld) [Volume fraction] 43.5 % Normal 42.0-54.0 [facility] Comment on above: Performed By: #### C BC #### [facility] [address] [place] [address] Dr. Dwight Waters Hemoglobin (Bld) [Mass/Vol] 14.4 g/dL Normal 14.0-18.0 [facility] Comment on above: Performed By: #### C BC #### [facility] [address] [place] [address] Dr. Dwight Waters IG # 0.02 10e3/ul Normal 0.00-0.03 [facility] Comment on above: Performed By: #### C BC #### [facility] [address] [place] [address] Dr. Dwight Waters IG % 0.2 % Normal 0.0-0.5 [facility] Comment on above: Performed By: #### C BC #### [facility] [address] [place] [address] Dr. Dwight Waters LYMPH # 1.5 103/ul Normal 1.2-3.8 [facility] Comment on above: Performed By: #### C BC #### [facility] [address] [place] [address] Dr. Dwight Waters Lymphocytes/100 WBC (Bld) 12.5 % Critically low 20.5-60.0 [facility] Comment on above: Performed By: #### C BC #### [facility] [address] [place] [address] Dr. Dwight Waters MANUAL DIFF REQ NO Normal [facility] Comment on above: Performed By: #### C BC #### [facility] [address] [address] [address] Dwight Waters MCH (RBC) [Entitic mass] 28.6 pg Normal 25.9-34.0 [facility] Comment on above: Performed By: #### C BC #### [facility] [address] [place] [address] Dr. Dwight Waters MCHC (RBC) [Mass/Vol] 33.1 g/dL Normal 29.9-35.2 [facility] Comment on above: Performed By: #### C BC #### [facility] [address] [place] [address] Dr. Dwight Waters MCV (RBC) [Entitic vol] 86.3 fL Normal 80.0-94.0 [facility] Comment on above: Performed By: #### C BC #### [facility] [address] [place] [address] Dr. Dwight Waters MONO # 1.0 103/ul Critically high 0.3-0.8 [facility] Comment on above: Performed By: #### C BC #### [facility] [address] [place] [address] Dr. Dwight Waters Monocytes/100 WBC (Bld) 8.2 % Normal 1.7-12.0 [facility] Comment on above: Performed By: #### C BC #### [facility] [address] [place] [address] Dr. Dwight Waters NEUT # 9.1 103/ul Critically high 1.4-6.5 [facility] Comment on above: Performed By: #### C BC #### [facility] [address] [place] [address] Dr. Dwight Waters Neutrophils/100 WBC (Bld) 78.0 % Critically high 43.0-75.0 [facility] Comment on above: Performed By: #### C BC #### [facility] [address] [place] [address] Dr. Dwight Waters Platelet mean volume (Bld) [Entitic vol] 9.8 fL Normal 9.5-13.5 [facility] Comment on above: Performed By: #### C BC #### [facility] [address] [place], [place] [address] Dr. Dwight Waters PLT 251 103/ul Normal 150-450 [facility] Comment on above: Performed By: #### C BC #### [facility] [address] [place], [place] [address] Dr. Dwight Waters RBC 5.04 106/ul Normal 4.70-6.10 [facility] Comment on above: Performed By: #### C BC #### [facility] [address] [place], [place] [address] Dr. Dwight Waters WBC 11.6 103/ul Critically high 4.0-11.0 [facility] Comment on above: Performed By: #### C BC #### [facility] [address] [address] [address] Dwight Waters CHEM 6 (LYTES, BUN CREA)on 0 05-15-2022 Anion gap [Moles/Vol] 12 mmol/L 7 - 17 mmol/L [facility] Chloride [Moles/Vol] 105 mmol/L 98 - 10 8 mmol/L [facility] CO2 [Moles/Vol] 26 mmol/L 21 - 31 mmol/L [facility] Creatinine [Mass/Vol] 2.85 mg/dL High 0.70 - 1.30 mg/dL [facility] GFR/1.73 sq M.predicted CKD-EPI (S/P/Bld) [Vol rate/Area] 26 Low >=60 mL/min/1.73m 2 [facility] Comment on above: Reported eGFR is bas ed on the CKD-EPI 2020 equation using creatinine, age, and sex. Potassium [Moles/Vol] 4.6 mmol/L 3.5 - 5.0 mmol/L [facility] Sodium [Moles/Vol] 138 mmol/L 135 - 145 mmol/L [facility] Urea nitrogen [Mass/Vol] 32 mg/dL High 7 - 25 mg/dL [facility] Urea nitrogen/Creatinine [Mass ratio] 11 mg/mg [facility] CT ABD/PELVIS WO CONon 05-15 CT ABD/PELVIS [...] transplanted kidney with moderate right-sided hydronephrosis. 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 Multiple nonobstructive [...] transplanted kidney with moderate right-sided hydronephrosis. 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 Multiple nonobstructive right renal calculi measuring up to 8 mm. FOLLOW-UP: Follow-up as clinically indicated. Electronically authenticated by: LYNDSAY JEAN Date: 2022-05-15 05:04 Normal [facility] Covid-19 PCR (CVDTB)on 04-30 SARS-CoV-2 (COVID-19) RNA ESTELITA+probe Ql (Unsp spec) Not detected Normal NOT DETECTED [facility] Comment on above: Result Comment: When [...] for this test is supported by the [place] of Health and Human Service's declaration that [...] Performed By: #### U RTPCR #### [facility] [address] [place] [address] Dr. Dwight Waters GLUCOSEon 05-15-2022 Glucose [Mass/Vol] 141 mg/dL High 70 - 99 mg/dL [facility] GOLD TOP TUBEon 05-15-2022 [facility] HEPATIC FUNCTION PANELon Albumin [Mass/Vol] 4.3 g/dL 3.5 - 5.0 g/dL [facility] ALP [Catalytic activity/Vol] 85 U/L 32 - 126 U/L [facility] ALT [Catalytic activity/Vol] 13 U/L 10 - 52 U/L [facility] AST [Catalytic activity/Vol] 15 U/L 10 - 39 U/L [facility] Bilirubin [Mass/Vol] 0.8 mg/dL <1.5 [facility] Bilirubin.direct [Mass/Vol] 0.2 mg/dL <0.3 [facility] Interpretation and review of laboratory results Normal [facility] Protein [Mass/Vol] 7.3 g/dL 6.4 - 8.3 g/dL [facility] LIPASEon 05-15-2022 Lipase [Catalytic activity/Vol] 8 U/L Low 11 - 82 U/L [facility] No Panel Informationon 05-15 Interpretation and review of laboratory results Abnormal [facility] PROF 14(COMP METB)on 022 Albumin [Mass/Vol] 3.8 g/dL Normal 3.4-5.0 [facility] Comment on above: Performed By: #### U RTPCR #### [facility] [address] [address] [address] Dwight Waters Albumin/Globulin [Mass ratio] 1.1 {ratio} Normal [facility] Comment on above: Performed By: #### U RTPCR #### [facility] [address] [place] [address] Dr. Dwight Waters ALP [Catalytic activity/Vol] 92 U/L Normal 46-116 [facility] Comment on above: Performed By: #### U RTPCR #### [facility] [address] [place] [address] Dr. Dwight Waters ALT [Catalytic activity/Vol] 25 U/L Normal 16-63 [facility] Comment on above: Performed By: #### U RTPCR #### [facility] [address] [place] [address] Dr. Dwight Waters Anion gap [Moles/Vol] 14.6 mmol/L Normal [facility] Comment on above: Performed By: #### U RTPCR #### [facility] [address] [place] [address] Dr. Dwight Waters AST [Catalytic activity/Vol] 17 U/L Normal 15-37 [facility] Comment on above: Performed By: #### U RTPCR #### [facility] [address] [place] [address] Dr. Dwight Waters Bilirubin [Mass/Vol] 0.6 mg/dL Normal 0.2-1.0 [facility] Comment on above: Performed By: #### U RTPCR #### [facility] [address] [place] [address] Dr. Dwight Waters Calcium [Mass/Vol] 9.9 mg/dL Normal 8.5-10.1 [facility] Comment on above: Performed By: #### U RTPCR #### [facility] [address] [place] [address] Dr. Dwight Waters Chloride [Moles/Vol] 106 mmol/L Normal 98-107 [facility] Comment on above: Performed By: #### U RTPCR #### [facility] [address] [address] [address] Dwight Waters CO2 [Moles/Vol] 24.2 mmol/L Normal 21.0-32.0 [facility] Comment on above: Performed By: #### U RTPCR #### [facility] [address] [address] [address] Dwight Waters Creatinine [Mass/Vol] 1.58 mg/dL Critically high 0.70-1.30 [facility] Comment on above: Performed By: #### U RTPCR #### [facility] [address] [address] [address] Dwight Waters EGFR-AF PARAGUAYAN 56 mL/min/1.73m2 Critically low >=60 [facility] Comment on above: Performed By: #### U RTPCR #### [facility] [address] [place] [address] Dr. Dwight Waters EGFR-NON AF PARAGUAYAN 46 mL/min/1.73m2 Critically low >=60 [facility] Comment on above: Performed By: #### U RTPCR #### [facility] [address] [address] [address] Dwight Waters Globulin (S) [Mass/Vol] 3.5 g/dL Normal [facility] Comment on above: Performed By: #### U RTPCR #### [facility] [address] [place] [address] Dr. Dwight Waters Glucose [Mass/Vol] 162 mg/dL Critically high 74-106 [facility] Comment on above: Performed By: #### U RTPCR #### [facility] [address] [address] [address] Dwight Waters Potassium [Moles/Vol] 3.8 mmol/L Normal 3.5-5.1 [facility] Comment on above: Performed By: #### U RTPCR #### [facility] [address] [address] [address] Dwight Waters Protein [Mass/Vol] 7.3 g/dL Normal 6.4-8.2 [facility] Comment on above: Performed By: #### U RTPCR #### [facility] [address] [address] [address] Dwight Waters Sodium [Moles/Vol] 141 mmol/L Normal 136-145 [facility] Comment on above: Performed By: #### U RTPCR #### [facility] [address] [address] [address] Dwight Waters Urea nitrogen [Mass/Vol] 22.0 mg/dL Critically high 7.0-18.0 [facility] Comment on above: Performed By: #### U RTPCR #### [facility] [address] [address] [address] Dwight Waters Urea nitrogen/Creatinine [Mass ratio] 13.9 mg/mg Normal [facility] Comment on above: Performed By: #### U RTPCR #### [facility] [address] [address] [address] Dwight Waters Portable XR Chest Viewson [...] chest. IMPRESSION IMPRESSION: No acute cardiopulmonary disease [facility] Radiology Study observation (narrative) [facility] Portable XR Chest ViewsOrder ed By: Vladislav Omer on 05-15-2022 [facility] URINE DIPSTICK; REFLEX MICRO SCOPY; REFLEX CULTURE PERFORMABLEon 05-15-2022 Appearance (U) Clear Clear [facility] Color (U) Yellow Yellow [facility] Glucose Test strip (U) [Mass/Vol] 100 mg/dL Abnormal Negative [facility] Interpretation and review of laboratory results Abnormal [facility] Ketones (U) [Mass/Vol] Negative Negative [facility] Leukocyte esterase Test strip Ql (U) Large Abnormal Negative [facility] Nitrite Ql (U) Negative Negative [facility] pH (U) 6.0 [pH] 5.0 - 7.0 [facility] Protein (U) [Mass/Vol] 100 mg/dL Abnormal Negative [facility] RBC (U) [#/Vol] Large Abnormal Negative [facility] Specific gravity (U) [Rel density] 1.010 [facility] Urobilinogen (U) [Mass/Vol] 0.2 E.U./dL 0.2 E.U/dL, 1.0 E.U/dL [facility] URINE MICROSCOPIC WITH REFLE X TO CULTUREOrdered By: Rey Bro on 05-15-2022 Bacteria LM Ql (Urine sed) ABSENT ABSENT [facility] Epithelial cells.squamous LM Ql (Urine sed) ABSENT 1/hpf = 1+, 2-5/hpf = 2+, 0/hpf = 0+, ABSENT [facility] Interpretation and review of laboratory results Abnormal [facility] RBC LM.HPF (Urine sed) [#/Area] /[HPF] Abnormal 0 - 2 /HPF [facility] WBC LM.HPF (Urine sed) [#/Area] 10-20 Abnormal 0 - 5 /HPF [facility] CT ABD/PELVIS WO CONon 05-12 CT ABD/PELVIS WO CON Begin Addendum #[address] Lund 3:25 PM EST 05/11/2022. Begin Addendum #2 IMPRESSION below should also contain the followin. 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 The [place] distal right ureter is decompressed beyond this [...] with surgical history for renal graft and washoe right urinary drainage, as a discrete ureteroneocystostomy is not identified, and the graft may be draining via a ureteroureterostomy. Urology consultation recommended. 3. 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 Normal [facility] CBC AUTO DIFFon 05-11-2022 BASO # 0.1 103/ul Normal 0.0-0.1 [facility] Comment on above: Performed By: #### U RTPCR #### [facility] [address] [place] [address] Dr. Dwight Waters Basophils/100 WBC (Bld) 0.8 % Normal 0.2-2.0 [facility] Comment on above: Performed By: #### U RTPCR #### [facility] [address] [place] [address] Dr. Dwight Waters EO # 0.2 103/ul Normal 0.0-0.7 [facility] Comment on above: Performed By: #### U RTPCR #### [facility] [address] [address] [address] Dwight Waters Eosinophils/100 WBC (Bld) 2.5 % Normal 0.9-7.0 [facility] Comment on above: Performed By: #### U RTPCR #### [facility] [address] [place] [address] Dr. Dwight Waters Erythrocyte distribution width (RBC) [Ratio] 12.5 % Normal 11.0-15.0 [facility] Comment on above: Performed By: #### U RTPCR #### [facility] [address] [place] [address] Dr. Dwgiht Waters Hematocrit (Bld) [Volume fraction] 48.3 % Normal 42.0-54.0 [facility] Comment on above: Performed By: #### U RTPCR #### [facility] [address] [place] [address] Dr. Dwight Waters Hemoglobin (Bld) [Mass/Vol] 15.3 g/dL Normal 14.0-18.0 [facility] Comment on above: Performed By: #### U RTPCR #### [facility] [address] [place] [address] Dr. Dwight Waters IG # 0.01 10e3/ul Normal 0.00-0.03 [facility] Comment on above: Performed By: #### U RTPCR #### [facility] [address] [place] [address] Dr. Dwight Waters IG % 0.2 % Normal 0.0-0.5 [facility] Comment on above: Performed By: #### U RTPCR #### [facility] [address] [place] [address] Dr. Dwight Waters LYMPH # 1.9 103/ul Normal 1.2-3.8 [facility] Comment on above: Performed By: #### U RTPCR #### [facility] [address] [place] [address] Dr. Dwight Waters Lymphocytes/100 WBC (Bld) 29.8 % Normal 20.5-60.0 [facility] Comment on above: Performed By: #### U RTPCR #### [facility] [address] [place] [address] Dr. Dwight Waters MANUAL DIFF REQ NO Normal [facility] Comment on above: Performed By: #### U RTPCR #### [facility] [address] [place] [address] Dr. Dwight Waters MCH (RBC) [Entitic mass] 28.2 pg Normal 25.9-34.0 [facility] Comment on above: Performed By: #### U RTPCR #### [facility] [address] [address] [address] Dwight Waters MCHC (RBC) [Mass/Vol] 31.7 g/dL Normal 29.9-35.2 [facility] Comment on above: Performed By: #### U RTPCR #### [facility] [address] [place] [address] Dr. Dwight Waters MCV (RBC) [Entitic vol] 89.1 fL Normal 80.0-94.0 [facility] Comment on above: Performed By: #### U RTPCR #### [facility] [address] [place] [address] Dr. Dwight Waters MONO # 0.6 103/ul Normal 0.3-0.8 [facility] Comment on above: Performed By: #### U RTPCR #### [facility] [address] [place] [address] Dr. Dwight Waters Monocytes/100 WBC (Bld) 9.0 % Normal 1.7-12.0 [facility] Comment on above: Performed By: #### U RTPCR #### [facility] [address] [place] [address] Dr. Dwight Waters NEUT # 3.6 103/ul Normal 1.4-6.5 [facility] Comment on above: Performed By: #### U RTPCR #### [facility] [address] [place] [address] Dr. Dwight Waters Neutrophils/100 WBC (Bld) 57.7 % Normal 43.0-75.0 [facility] Comment on above: Performed By: #### U RTPCR #### [facility] [address] [place] [address] Dr. Dwight Waters Platelet mean volume (Bld) [Entitic vol] 9.9 fL Normal 9.5-13.5 [facility] Comment on above: Performed By: #### U RTPCR #### [facility] [address] [place] [address] Dr. Dwight Waters PLT 249 103/ul Normal 150-450 [facility] Comment on above: Performed By: #### U RTPCR #### [facility] [address] [place] [address] Dr. Dwight Waters RBC 5.42 106/ul Normal 4.70-6.10 [facility] Comment on above: Performed By: #### U RTPCR #### [facility] [address] [place] [address] Dr. Dwight Waters WBC 6.3 103/ul Normal 4.0-11.0 [facility] Comment on above: Performed By: #### U RTPCR #### [facility] [address] [place] [address] Dr. Dwight Waters ER URINE PROFILEon 2 Bilirubin Ql (U) Unable to perform te sting due to color interference. Abnormal NEGATIVE [facility] Comment on above: Performed By: #### U RTPCR #### [facility] [address] [place] [address] Dr. Dwight Waters Clarity (U) TURBID Abnormal CLEAR [facility] Comment on above: Performed By: #### U RTPCR #### [facility] [address] [place] [address] Dr. Dwight Waters Color (U) RED Abnormal YELLOW [facility] Comment on above: Performed By: #### U RTPCR #### [facility] [address] [place] [address] Dr. Dwight Waters ERUBERTHA A micrscopic examina tion will be performed if indicated. Normal [facility] Comment on above: Performed By: #### U RTPCR #### [facility] [address] [place] [address] Dr. Dwight Waters Glucose Ql (U) Unable to perform te sting due to color interference. Abnormal NEGATIVE [facility] Comment on above: Performed By: #### U RTPCR #### [facility] [address] [place] [address] Dr. Dwight Waters Hemoglobin Ql (U) Unable to perform te sting due to color interference. Abnormal NEGATIVE [facility] Comment on above: Performed By: #### U RTPCR #### [facility] [address] [place] [address] Dr. Dwight Waters Ketones Ql (U) Unable to perform te sting due to color interference. Abnormal NEGATIVE [facility] Comment on above: Performed By: #### U RTPCR #### [facility] [address] [place] [address] Dr. Dwight Waters LEUKOCYTES Unable to perform te sting due to color interference. Abnormal NEGATIVE [facility] Comment on above: Performed By: #### U RTPCR #### [facility] [address] [place] [address] Dr. Dwight Waters Nitrite Ql (U) Unable to perform te sting due to color interference. Abnormal NEGATIVE [facility] Comment on above: Performed By: #### U RTPCR #### [facility] [address] [place] [address] Dr. Dwight Waters pH (U) 6.5 [pH] Normal 5-9 [facility] Comment on above: Performed By: #### U RTPCR #### [facility] [address] [place] [address] Dr. Dwight Waters SPEC GRAVITY 1.020 Normal 1.005-<=1.02 5 [facility] Comment on above: Performed By: #### U RTPCR #### [facility] [address] [place] [address] Dr. Dwight Waters UA PROTEIN Unable to perform te sting due to color interference. Normal NEGATIVE/ TRACE [facility] Comment on above: Performed By: #### U RTPCR #### [facility] [address] [place] [address] Dr. Dwight Waters UR MICRO IND INDICATED Normal [facility] Comment on above: Performed By: #### U RTPCR #### [facility] [address] [place] [address] Dr. Dwight Waters UROBILINOGEN Unable to perform te sting due to color interference. Normal 0.2 - 1.0 [facility] Comment on above: Performed By: #### U RTPCR #### [facility] [address] [place] [address] Dr. Dwight Waters PROF 14(COMP METB)on 022 Albumin [Mass/Vol] 3.8 g/dL Normal 3.4-5.0 [facility] Comment on above: Performed By: #### C MP #### [facility] [address] [place] [address] Dr. Dwight Waters Albumin/Globulin [Mass ratio] 1.1 {ratio} Normal [facility] Comment on above: Performed By: #### C MP #### [facility] [address] [place] [address] Dr. Dwight Waters ALP [Catalytic activity/Vol] 106 U/L Normal 46-116 [facility] Comment on above: Performed By: #### C MP #### [facility] [address] [place] [address] Dr. Dwight Waters ALT [Catalytic activity/Vol] 30 U/L Normal 16-63 [facility] Comment on above: Performed By: #### C MP #### [facility] [address] [place] [address] Dr. Dwight Waters Anion gap [Moles/Vol] 11.7 mmol/L Normal [facility] Comment on above: Performed By: #### C MP #### [facility] [address] [place] [address] Dr. Dwight Waters AST [Catalytic activity/Vol] 16 U/L Normal 15-37 [facility] Comment on above: Performed By: #### C MP #### [facility] [address] [place] [address] Dr. Dwight Waters Bilirubin [Mass/Vol] 0.6 mg/dL Normal 0.2-1.0 [facility] Comment on above: Performed By: #### C MP #### [facility] [address] [place] [address] Dr. Dwight Waters Calcium [Mass/Vol] 9.1 mg/dL Normal 8.5-10.1 [facility] Comment on above: Performed By: #### C MP #### [facility] [address] [place] [address] Dr. Dwight Waters CO2 [Moles/Vol] 27.4 mmol/L Normal 21.0-32.0 [facility] Comment on above: Performed By: #### C MP #### [facility] [address] [place] [address] Dr. Dwight Waters Creatinine [Mass/Vol] 1.18 mg/dL Normal 0.70-1.30 [facility] Comment on above: Performed By: #### C MP #### [facility] [address] [place] [address] Dr. Dwight Waters EGFR-AF PARAGUAYAN >60 Normal >=60 [facility] Comment on above: Performed By: #### C MP #### [facility] [address] [place] [address] Dr. Dwight Waters EGFR-NON AF PARAGUAYAN >60 Normal >=60 [facility] Comment on above: Performed By: #### C MP #### [facility] [address] [place] [address] Dr. Dwight Waters Globulin (S) [Mass/Vol] 3.6 g/dL Normal [facility] Comment on above: Performed By: #### C MP #### [facility] [address] [place] [address] Dr. Dwight Waters Glucose [Mass/Vol] 192 mg/dL Critically high 74-106 T [facility] Comment on above: Performed By: #### C MP #### [facility] [address] [place] [address] Dr. Dwight Waters Potassium [Moles/Vol] 4.1 mmol/L Normal 3.5-5.1 [facility] Comment on above: Performed By: #### C MP #### [facility] [address] [place] [address] Dr. Dwight Waters Protein [Mass/Vol] 7.4 g/dL Normal 6.4-8.2 [facility] Comment on above: Performed By: #### C MP #### [facility] [address] [place] [address] Dr. Dwight Waters Sodium [Moles/Vol] 142 mmol/L Normal 136-145 [facility] Comment on above: Performed By: #### C MP #### [facility] [address] [place] [address] Dr. Dwight Waters Urea nitrogen [Mass/Vol] 17.0 mg/dL Normal 7.0-18.0 [facility] Comment on above: Performed By: #### C MP #### [facility] [address] [place] [address] Dr. Dwight Waters Urea nitrogen/Creatinine [Mass ratio] 14.4 mg/mg Normal [facility] Comment on above: Performed By: #### C MP #### [facility] [address] [place] [address] Dr. Dwight Waters URINE MICROSCOPIC ONLYon BACTERIA NONE SEEN Normal NONE SEEN [facility] Comment on above: Performed By: #### U RTPCR #### [facility] [address] [place] [address] Dr. Dwight Waters Bacteria identified Cx Nom (U) NOT INDICATED Normal [facility] Comment on above: Performed By: #### U RTPCR #### [facility] [address] [place] [address] Dr. Dwight Waters CAST NONE SEEN Normal NONE SEEN [facility] Comment on above: Performed By: #### U RTPCR #### [facility] [address] [place] [address] Dr. Dwight Waters Crystals LM Nom (Urine sed) NONE SEEN Normal NONE SEEN [facility] Comment on above: Performed By: #### U RTPCR #### [facility] [address] [place] [address] Dr. Dwight Waters Epithelial cells LM Ql (Urine sed) RARE Normal NONE SEEN /RARE [facility] Comment on above: Performed By: #### U RTPCR #### [facility] [address] [place] [address] Dr. Dwight Waters MUCOUS NONE SEEN Normal NONE SEEN [facility] Comment on above: Performed By: #### U RTPCR #### [facility] [address] [place] [address] Dr. Dwight Waters RBC (U) [#/Vol] /uL Abnormal 0-2 [facility] Comment on above: Performed By: #### U RTPCR #### [facility] [address] [address] [address] Dwight Waters WBC NONE SEEN Normal NONE SEEN [facility] Comment on above: Performed By: #### U RTPCR #### [facility] [address] [id number] Dwight Ortiz (Potassium)on 01-06-2020 Potassium [Moles/Vol] 4.4 mmol/L Normal 3.7-5.3 [facility] Comment on above: Performed By: #### K #### [facility] [address] [place] [id number] Hse Manager: Kehinde Woodward MD Potassiumon 01-06-2020 Potassium [Moles/Vol] 4.4 mmol/L 3.7 - 5.3 mmol/L [facility] Work Phone: Hemoglobin and Hematocrit, B loodon 10-24-2019 Hematocrit (Bld) [Volume fraction] 23.6 % Low 40.7 - 50.3 % [place], [place] Hemoglobin (Bld) [Mass/Vol] 7.3 g/dL Low 13 - 17 g/dL [place] Interpretation and review of laboratory results Abnormal [place] Hgb/Hcton 10-24-2019 Hematocrit (Bld) [Volume fraction] 23.6 % Low 40.7-50.3 [facility] Comment on above: Performed By: #### H H #### [facility] [address] [place] [facility] Hse Manager: Kehinde Woodward MD Hemoglobin (Bld) [Mass/Vol] 7.3 g/dL Low 13.0-17.0 [facility] Comment on above: Performed By: #### H H #### [facility] [address] [place] [address] Hse Manager: Kehinde Woodward MD Hemoglobinon 08-27-2019 Hemoglobin (Bld) [Mass/Vol] 7.5 g/dL Low 13.0-17.0 [facility] Comment on above: Performed By: #### H GB #### [facility] [address] [place] [address] Hse Manager: Kehinde Woodward MD Hemoglobin (Bld) [Mass/Vol] 7.5 g/dL Low 13 - 17 g/dL [place] Interpretation and review of laboratory results Abnormal [place] Hemoglobinon 08-08-2019 Hemoglobin (Bld) [Mass/Vol] 8.3 g/dL Low 13.0-17.0 [facility] Comment on above: Performed By: #### H GB #### [facility] [address] [place] [address] Hse Manager: Kehinde Woodward MD Hemoglobin (Bld) [Mass/Vol] 8.3 g/dL Low 13 - 17 g/dL [place] Interpretation and review of laboratory results Abnormal [place] Hemoglobinon 08-04-2019 Hemoglobin (Bld) [Mass/Vol] 8.0 g/dL Low 13.0-17.0 [facility] Comment on above: Performed By: #### H GB #### [facility] [address] [place] [address] Hse Manager: Kehinde Woodward MD Hemoglobin A1Con 08-03-2019 HbA1c (Bld) [Mass fraction] % Low 4.8-5.9 [facility] Comment on above: Result Comment: The ADA and AACC recommend providing the estimated average glucose result to permit better patient understanding of their HBA1c result. Performed By: #### G LYHGB #### [facility] [address] [place] [address] Hse Manager: Kehinde Woodward MD Glucose [Mass/Vol] mg/dL mg/dL [place], [place] Comment on above: The ADA and AACC rec ommend providing the estimated average glucose result to permit better patient understanding of their HBA1c result. HbA1c (Bld) [Mass fraction] % Low 4.8 - 5.9 % [place] Interpretation and review of laboratory results Abnormal [place] Hemoglobinon 08-01-2019 Hemoglobin (Bld) [Mass/Vol] 8.1 g/dL Low 13.0-17.0 [facility] Comment on above: Performed By: #### H GB #### [facility] [address] [place] [id number] Hse Manager: Kehinde Woodward MD Hemoglobin (Bld) [Mass/Vol] 8.1 g/dL Low 13 - 17 g/dL [place] Interpretation and review of laboratory results Abnormal [place] Hgb/Hcton 06-10-2019 Hematocrit (Bld) [Volume fraction] 24.3 % Low 40.7-50.3 [facility] Comment on above: Performed By: #### H H #### [facility] [address] [place], [place] [id number] Hse Manager: Kehinde Woodward MD Hemoglobin (Bld) [Mass/Vol] 7.4 g/dL Low 13.0-17.0 [facility] Comment on above: Performed By: #### H H #### [facility] [address] [place], [facility] Hse Manager: Kehinde Woodward MD Hemoglobinon 06-01-2019 Hemoglobin (Bld) [Mass/Vol] 7.2 g/dL Low 13.0-17.0 [facility] Comment on above: Performed By: #### H GB #### [facility] [address] [place] [id number] Hse Manager: Kehinde Woodward MD K (Potassium)on 01-14-2019 Potassium [Moles/Vol] 3.6 mmol/L Low 3.7-5.3 [facility] Comment on above: Performed By: #### K #### [facility] [address] [place], [place] [id number] Hse Manager: Kehinde Woodward MD Otheron 10-19-2018 IMPRESSION: [...] by Toxicology Laboratory at [facility]. It has not been cleared [...] Amitriptyline(50), Amphetamine(250), Atenolol(500), Barbiturates(1000), Benzoylecgonine(50), Buprenorphine(50), Bupropion(25), Caffeine(44085), Chlordiazepoxide(50), Chlorpheniramine(100), Chlorpromazine(50), Citalopram(100), Clonazepam(200), Cocaine(25), Codeine(200), [...] Shira LOUIS, OSLucius [facility] Drugs identified Screen Nom (U) For Medical Purposes Only, Non-forensic, screen results are presumptive. No confirmatory testing will follow. Invalid Interpretation Code MISSY, OS Comment on above: This Liquid Chromato graphy Mass Spectrometry (LC/MS/MS) test was developed and its performance characteristics determined by Toxicology Laboratory at [facility]. It has not been cleared [...] Amitriptyline(50), Amphetamine(250), Atenolol(500), Barbiturates(200), Benzoylecgonine(50), Buprenorphine(500), Bupropion(25), Caffeine(26524), Cannabinoids(THC)(50), Chlordiazepoxide(50), Chlorpheniramine(100), Chlorpromazine(50), Citalopram(100), Clonazepam(200), Cocaine(25), [...] 170.2 cm Tony Hernandez MD Work Phone: [facility] 02-28-2025 09:07-0400 Body mass index (BMI) [Ratio] 32.26 kg/m2 Tony Hernandez MD Work Phone: [facility] 02-28-2025 09:07-0400 Body weight 93.44 kg Tony Hernandez MD Work Phone: [facility] 02-28-2025 09:07-0400 Diastolic blood pressure 90 mm[Hg] Tony Hernandez MD Work Phone: [facility] 02-28-2025 09:07-0400 Heart rate 86 /min Tony Hernandez MD Work Phone: [facility] 02-28-2025 09:07-0400 Respiratory rate 18 /min Tony Hernandez MD Work Phone: [facility] 02-28-2025 09:07-0400 SaO2% (BldA) [Mass fraction] 95 % Tony Hernandez MD Work Phone: [facility] 02-28-2025 09:07-0400 Systolic blood pressure 138 mm[Hg] Tony Hernandez MD Work Phone: [facility] 01-03-2025 11:01-0500 Diastolic blood pressure 88 mm[Hg] Steph Orzech [facility] 01-03-2025 11:01-0500 Heart rate 67 /min Steph Orzech [facility] 01-03-2025 11:01-0500 Respiratory rate 16 /min Steph Orzech [facility] 01-03-2025 11:01-0500 Systolic blood pressure 124 mm[Hg] Steph Orzech [facility] 12-26-2024 09:32-0500 Diastolic blood pressure 71 mm[Hg] Zuly Bruno Work Phone: [facility] 12-26-2024 09:32-0500 Heart rate 62 /min Zuly Torrseholz Work Phone: [facility] 12-26-2024 09:32-0500 Respiratory rate 16 /min Zulytray Torresholz Work Phone: [facility] 12-26-2024 09:32-0500 SaO2% (BldA) [Mass fraction] 95 % Zuly Brianholz Work Phone: [facility] 12-26-2024 09:32-0500 Systolic blood pressure 105 mm[Hg] Zuly Lexiehholz Work Phone: [facility] 12-26-2024 06:58-0500 Body height 170.18 cm Zuly Torresholz Work Phone: [facility] 12-26-2024 06:58-0500 Body weight 89.35 kg Zuly Bruno Work Phone: [facility] 12-15-2024 09:15-0500 Body height 170.18 cm [facility] 12-15-2024 09:15-0500 Body mass index (BMI) [Ratio] 30.8 kg/m2 [facility] 12-15-2024 09:15-0500 Body weight 89.35 kg [facility] 12-15-2024 09:15-0500 Diastolic blood pressure 72 mm[Hg] [facility] 12-15-2024 09:15-0500 Heart rate 82 /min [facility] 12-15-2024 09:15-0500 Systolic blood pressure 126 mm[Hg] [facility] 11-22-2024 09:35-0500 Diastolic blood pressure 95 mm[Hg] Steph Orzech [facility] 11-22-2024 09:35-0500 Heart rate 68 /min Steph Orzech [facility] 11-22-2024 09:35-0500 Systolic blood pressure 135 mm[Hg] Steph Almodovar [facility] 11-07-2024 14:29-0500 Body height 170.2 cm Zuly Marissaz IT NETWORK ARCHITECT Work Phone: [facility] 11-07-2024 14:29-0500 Body mass index (BMI) [Ratio] 31.83 kg/m2 Zuly Marissaz IT NETWORK ARCHITECT Work Phone: [facility] 11-07-2024 14:29-0500 Body temperature 98.2 [degF] Zuly Marissaz IT NETWORK ARCHITECT Work Phone: [facility] 11-07-2024 14:29-0500 Body weight 92.17 kg Zuly Marissaz IT NETWORK ARCHITECT Work Phone: [facility] 11-07-2024 14:29-0500 Diastolic blood pressure 86 mm[Hg] Zuly Marissaz IT NETWORK ARCHITECT Work Phone: [facility] 11-07-2024 14:29-0500 Heart rate 63 /min Zuly Lexiehholz IT NETWORK ARCHITECT Work Phone: [facility] 11-07-2024 14:29-0500 Respiratory rate 18 /min Zuly Lexiehholz IT NETWORK ARCHITECT Work Phone: [facility] 11-07-2024 14:29-0500 SaO2% (BldA) [Mass fraction] 96 % Zuly Marissaz IT NETWORK ARCHITECT Work Phone: [facility] 11-07-2024 14:29-0500 Systolic blood pressure 128 mm[Hg] Zuly Lexiehholz IT NETWORK ARCHITECT Work Phone: [facility] 09-08-2024 13:40-0400 Blood Pressure Location Clementina Galea [facility] 09-08-2024 13:40-0400 Diastolic blood pressure 90 mm[Hg] Clementina Galea [facility] 09-08-2024 13:40-0400 Heart rate 66 /min Clementina Galea [facility] 09-08-2024 13:40-0400 Systolic blood pressure 144 mm[Hg] Clementina Galea [facility] 08-23-2024 08:45-0400 Body height 170.2 cm Zulytray Bruno IT NETWORK ARCHITECT Work Phone: [facility] 08-23-2024 08:45-0400 Body mass index (BMI) [Ratio] 30.26 kg/m2 Zuly Marissaz IT NETWORK ARCHITECT Work Phone: [facility] 08-23-2024 08:45-0400 Body temperature 98.01 [degF] Zuly Bruno IT NETWORK ARCHITECT Work Phone: [facility] 08-23-2024 08:45-0400 Body weight 87.64 kg Zuly Marissaz IT NETWORK ARCHITECT Work Phone: [facility] 08-23-2024 08:45-0400 Diastolic blood pressure 80 mm[Hg] Zuly Marissaz IT NETWORK ARCHITECT Work Phone: [facility] 08-23-2024 08:45-0400 Heart rate 61 /min Zuly Marissaz IT NETWORK ARCHITECT Work Phone: [facility] 08-23-2024 08:45-0400 Respiratory rate 18 /min Zuly Marissaz IT NETWORK ARCHITECT Work Phone: [facility] 08-23-2024 08:45-0400 SaO2% (BldA) [Mass fraction] 96 % Zuly Marissaz IT NETWORK ARCHITECT Work Phone: [facility] 08-23-2024 08:45-0400 Systolic blood pressure 132 mm[Hg] Zuly Kiana IT NETWORK ARCHITECT Work Phone: [facility] 06-17-2024 08:37-0400 Body mass index (BMI) [Ratio] 29.43 kg/m2 Rebeca Gutierrez [employer]ANG SUPERVISOR-ANALOG IC DESIGN ARCHITECT Work Phone: [facility] 06-17-2024 08:37-0400 Body temperature 97.39 [degF] Rebeca Gutierrez [employer]ANG SUPERVISOR-ANALOG IC DESIGN ARCHITECT Work Phone: [facility] 06-17-2024 08:37-0400 Body weight 85.23 kg Rebeca Gutierrez [employer] SUPERVISOR-ANALOG IC DESIGN ARCHITECT Work Phone: [facility] 06-17-2024 08:37-0400 Diastolic blood pressure 75 mm[Hg] Rebeca Gutierrez [employer] SUPERVISOR-ANALOG IC DESIGN ARCHITECT Work Phone: [facility] 06-17-2024 08:37-0400 Heart rate 53 /min Rebeca Gutierrez [employer] SUPERVISOR-ANALOG IC DESIGN ARCHITECT Work Phone: [facility] 06-17-2024 08:37-0400 Systolic blood pressure 143 mm[Hg] Rebeca Gutierrez [employer] SUPERVISOR-ANALOG IC DESIGN ARCHITECT Work Phone: [facility] 06-17-2024 08:36-0400 Body mass index (BMI) [Ratio] 29.43 kg/m2 Daisha Sobotka DO Work Phone: [facility] 06-17-2024 08:36-0400 Body temperature 97.39 [degF] Daisha Sobotka DO Work Phone: [facility] 06-17-2024 08:36-0400 Body weight 85.23 kg Daisha Sobotka DO Work Phone: [facility] 06-17-2024 08:36-0400 Diastolic blood pressure 75 mm[Hg] Daisha Sobotka DO Work Phone: [facility] 06-17-2024 08:36-0400 Heart rate 53 /min Diasha Sobotka DO Work Phone: [facility] 06-17-2024 08:36-0400 Systolic blood pressure 143 mm[Hg] Daisha Max DO Work Phone: [facility] 02-26-2024 09:07-0400 Diastolic blood pressure 56 mm[Hg] Candie Almaguer MD Work Phone: [facility] 02-26-2024 09:07-0400 Heart rate 65 /min Candie Almaguer MD Work Phone: [facility] 02-26-2024 09:07-0400 Systolic blood pressure 113 mm[Hg] Candie Almaguer MD Work Phone: [facility] 02-26-2024 09:06-0400 Body height 170.2 cm Candie Almaguer MD Work Phone: [facility] 02-26-2024 09:06-0400 Body mass index (BMI) [Ratio] 28.9 kg/m2 Candie Almaguer MD Work Phone: [facility] 02-26-2024 09:06-0400 Body weight 83.69 kg Candie Almaguer MD Work Phone: [facility] 02-26-2024 09:06-0400 Respiratory rate 20 /min Candie Almaguer MD Work Phone: [facility] 02-26-2024 09:06-0400 SaO2% (BldA) [Mass fraction] 97 % Candie Almaguer MD Work Phone: [facility] 01-23-2024 15:04-0500 Body temperature 97.9 [degF] Reese Sage MD Work Phone: [facility] 01-23-2024 15:04-0500 Diastolic blood pressure 67 mm[Hg] Reese Sage MD Work Phone: [facility] 01-23-2024 15:04-0500 Heart rate 51 /min Reese Sage MD Work Phone: [facility] 01-23-2024 15:04-0500 Respiratory rate 16 /min Reese Sage MD Work Phone: [facility] 01-23-2024 15:04-0500 SaO2% (BldA) [Mass fraction] 94 % Reese Sage MD Work Phone: [facility] 01-23-2024 15:04-0500 Systolic blood pressure 151 mm[Hg] Reese Sage MD Work Phone: [facility] 01-23-2024 10:46-0500 Body mass index (BMI) [Ratio] 30.94 kg/m2 Reese Sage MD Work Phone: [facility] 01-23-2024 10:46-0500 Body weight 89.6 kg Reese Sage MD Work Phone: [facility] 01-18-2024 11:21-0500 Body height 170.2 cm Reese Sage MD Work Phone: [facility] 01-06-2024 09:04-0500 Body height 170.2 cm Zuly Bruno IT NETWORK ARCHITECT Work Phone: [facility] 01-06-2024 09:04-0500 Body mass index (BMI) [Ratio] 32.42 kg/m2 Zuly Bruno IT NETWORK ARCHITECT Work Phone: [facility] 01-06-2024 09:04-0500 Body temperature 97.81 [degF] Zuly Bruno IT NETWORK ARCHITECT Work Phone: [facility] 01-06-2024 09:04-0500 Body weight 93.89 kg Zuly Bruno IT NETWORK ARCHITECT Work Phone: [facility] 01-06-2024 09:04-0500 Diastolic blood pressure 70 mm[Hg] Zuly Torresholz IT NETWORK ARCHITECT Work Phone: [facility] 01-06-2024 09:04-0500 Heart rate 95 /min Zuly Torresholz IT NETWORK ARCHITECT Work Phone: [facility] 01-06-2024 09:04-0500 Respiratory rate 17 /min Zulytray Torresholz IT NETWORK ARCHITECT Work Phone: [facility] 01-06-2024 09:04-0500 SaO2% (BldA) [Mass fraction] 99 % Zuly Brianholz IT NETWORK ARCHITECT Work Phone: [facility] 01-06-2024 09:04-0500 Systolic blood pressure 138 mm[Hg] Zuly Lexiehholz IT NETWORK ARCHITECT Work Phone: [facility] 09-11-2023 10:31-0400 Body temperature 97.81 [degF] Steve Tammy MBBS Work Phone: [facility] 09-11-2023 10:31-0400 Diastolic blood pressure 66 mm[Hg] Steve Tammy MBBS Work Phone: [facility] 09-11-2023 10:31-0400 Heart rate 70 /min Steve Tammy MBBS Work Phone: [facility] 09-11-2023 10:31-0400 Respiratory rate 20 /min Steve Tammy MBBS Work Phone: [facility] 09-11-2023 10:31-0400 SaO2% (BldA) [Mass fraction] 91 % Steve Tammy MBBS Work Phone: [facility] 09-11-2023 10:31-0400 Systolic blood pressure 129 mm[Hg] Steve Tammy MBBS Work Phone: [facility] 09-10-2023 15:50-0400 Body mass index (BMI) [Ratio] 31.99 kg/m2 Steve Tammy MBBS Work Phone: [facility] 09-10-2023 15:50-0400 Body weight 92.67 kg Steve Tammy MBBS Work Phone: [facility] 09-02-2023 07:32-0400 Body height 170.2 cm Steve Tammy MBBS Work Phone: [facility] 08-28-2023 13:33-0400 Body height 170.2 cm Steve Tammy MBBS Work Phone: [facility] 08-28-2023 13:33-0400 Body mass index (BMI) [Ratio] 32.12 kg/m2 Steve Tammy MBBS Work Phone: [facility] 08-28-2023 13:33-0400 Body temperature 97.3 [degF] Steve Tammy MBBS Work Phone: [facility] 08-28-2023 13:33-0400 Body weight 93.03 kg Steve Tammy MBBS Work Phone: [facility] 08-28-2023 13:33-0400 Diastolic blood pressure 41 mm[Hg] Steve Tammy MBBS Work Phone: [facility] 08-28-2023 13:33-0400 Heart rate 116 /min Steve Tammy MBBS Work Phone: [facility] 08-28-2023 13:33-0400 Systolic blood pressure 106 mm[Hg] Steve Tammy MBBS Work Phone: [facility] 06-12-2023 14:50-0400 Body mass index (BMI) [Ratio] 33.8 kg/m2 Rebeca Gutierrez APRN-ANALOG IC DESIGN ARCHITECT Work Phone: [facility] 06-12-2023 14:50-0400 Body temperature 97.3 [degF] Rebeca Gutierrez LEAK GANG SUPERVISOR-ANALOG IC DESIGN ARCHITECT Work Phone: [facility] 06-12-2023 14:50-0400 Body weight 97.89 kg Rebeca Gutierrez LE[employer] SUPERVISOR-ANALOG IC DESIGN ARCHITECT Work Phone: [facility] 06-12-2023 14:50-0400 Diastolic blood pressure 77 mm[Hg] Rebeca Gutierrez LEAK GANG SUPERVISOR-ANALOG IC DESIGN ARCHITECT Work Phone: [facility] 06-12-2023 14:50-0400 Heart rate 76 /min Rebeca Gutierrez LEAK GANG SUPERVISOR-ANALOG IC DESIGN ARCHITECT Work Phone: [facility] 06-12-2023 14:50-0400 Systolic blood pressure 146 mm[Hg] Rebeca Gutierrez LEAK [employer] SUPERVISOR-ANALOG IC DESIGN ARCHITECT Work Phone: [facility] 01-16-2023 08:57-0500 Body height 170.2 cm [facility] Work Phone: [facility] 01-16-2023 08:57-0500 Body mass index (BMI) [Ratio] 33.66 kg/m2 [facility] Work Phone: [facility] 01-16-2023 08:57-0500 Body temperature 97.3 [degF] [facility] Work Phone: [facility] 01-16-2023 08:57-0500 Body weight 97.48 kg [facility] Work Phone: [facility] 01-16-2023 08:57-0500 Diastolic blood pressure 75 mm[Hg] [facility] Work Phone: [facility] 01-16-2023 08:57-0500 Heart rate 76 /min [facility] Work Phone: [facility] 01-16-2023 08:57-0500 Systolic blood pressure 142 mm[Hg] [facility] Work Phone: [facility] 09-10-2022 09:38-0400 Body height 170.2 cm Ryan Yepez MD Work Phone: [facility] 09-10-2022 09:38-0400 Body mass index (BMI) [Ratio] 33.67 kg/m2 Ryan Yepez MD Work Phone: [facility] 09-10-2022 09:38-0400 Body weight 97.52 kg Ryan Yepez MD Work Phone: [facility] 09-10-2022 09:38-0400 Diastolic blood pressure 83 mm[Hg] Ryan Yepez MD Work Phone: [facility] 09-10-2022 09:38-0400 Heart rate 64 /min Ryan Yepez MD Work Phone: [facility] 09-10-2022 09:38-0400 SaO2% (BldA) [Mass fraction] 96 % Ryan Yepez MD Work Phone: [facility] 09-10-2022 09:38-0400 Systolic blood pressure 129 mm[Hg] Ryan Yepez MD Work Phone: [facility] 07-07-2022 13:48-0400 Diastolic blood pressure 76 mm[Hg] Ryan Yepez MD Work Phone: [facility] 07-07-2022 13:48-0400 Heart rate 82 /min Ryan Yepez MD Work Phone: [facility] 07-07-2022 13:48-0400 SaO2% (BldA) [Mass fraction] 96 % Ryan Yepez MD Work Phone: 0(281)[phone] [place] [address] 07-07-2022 13:48-0400 Systolic blood pressure 141 mm[Hg] Ryan Yepez MD Work Phone: [facility] 06-27-2022 13:32-0400 Body height 170.2 cm Ryan Yepez MD Work Phone: [facility] 06-27-2022 13:32-0400 Body mass index (BMI) [Ratio] 34.24 kg/m2 Ryan Yepez MD Work Phone: 8(718)499-943249 [address] 06-27-2022 13:32-0400 Body temperature 98.6 [degF] Ryan Yepez MD Work Phone: 2(073)[phone] [place] [address] 06-27-2022 13:32-0400 Body weight 99.16 kg Ryan Yepez MD Work Phone: 5(418)[phone] [address] 06-27-2022 13:32-0400 Diastolic blood pressure 78 mm[Hg] Ryan Yepez MD Work Phone: 1(303)727-440949 [address] 06-27-2022 13:32-0400 Heart rate 77 /min Ryan Yepez MD Work Phone: 9(075)[phone] [address] 06-27-2022 13:32-0400 SaO2% (BldA) [Mass fraction] 95 % Ryan Yepez MD Work Phone: [facility] 06-27-2022 13:32-0400 Systolic blood pressure 121 mm[Hg] Ryan Yepez MD Work Phone: [facility] 06-27-2022 10:52-0400 Body height 170.2 cm Rena Brewster RN [facility] 06-27-2022 10:52-0400 Body mass index (BMI) [Ratio] 34.46 kg/m2 Rena Brewster RN [facility] 06-27-2022 10:52-0400 Body temperature 98.2 [degF] Rena Brewster RN [facility] 06-27-2022 10:52-0400 Body weight 99.79 kg Rena Brewster RN [facility] 06-27-2022 10:52-0400 Diastolic blood pressure 73 mm[Hg] Rena Brewster RN [facility] 06-27-2022 10:52-0400 Heart rate 78 /min Rena Brewster RN [facility] 06-27-2022 10:52-0400 Respiratory rate 20 /min Rena Brewster RN [facility] 06-27-2022 10:52-0400 SaO2% (BldA) [Mass fraction] 97 % Rena Brewster RN [facility] 06-27-2022 10:52-0400 Systolic blood pressure 135 mm[Hg] Rena Brewster RN [facility] 06-12-2022 14:23-0400 Body mass index (BMI) [Ratio] 34.59 kg/m2 Steve Tammy MBBS Work Phone: [facility] 06-12-2022 14:23-0400 Body temperature 97 [degF] Steve Tammy MBBS Work Phone: [facility] 06-12-2022 14:23-0400 Body weight 100.2 kg Steve Tammy MBBS Work Phone: [facility] 06-12-2022 14:23-0400 Diastolic blood pressure 66 mm[Hg] Steve Tammy MBBS Work Phone: [facility] 06-12-2022 14:23-0400 Heart rate 63 /min Steve Tammy MBBS Work Phone: [facility] 06-12-2022 14:23-0400 Systolic blood pressure 133 mm[Hg] Steve Tammy MBBS Work Phone: [facility] 05-20-2022 15:21-0400 Body temperature 97.9 [degF] Gian Villatoro MD Work Phone: [facility] 05-20-2022 15:21-0400 Diastolic blood pressure 64 mm[Hg] Gian Villatoro MD Work Phone: [facility] 05-20-2022 15:21-0400 Heart rate 55 /min Gian Villatoro MD Work Phone: 1(834)[phone] [address] 05-20-2022 15:21-0400 Respiratory rate 15 /min Gian Villatoro MD Work Phone: 3(355)517-905829 [place] [address] 05-20-2022 15:21-0400 SaO2% (BldA) [Mass fraction] 95 % Gian Villatoro MD Work Phone: [phone](241)[phone] [address] 05-20-2022 15:21-0400 Systolic blood pressure 145 mm[Hg] Gian Villatoro MD Work Phone: 5(508)[phone] [place] [address] 05-19-2022 12:15-0400 Body mass index (BMI) [Ratio] 35.87 kg/m2 Gian Villatoro MD Work Phone: 5(713)748-706829 [place] [address] 05-19-2022 12:15-0400 Body weight 103.92 kg Gian Villatoro MD Work Phone: 5(940)918-113029 [place] [address] Comment on above: standing scale 05-16-2022 16:19-0400 Body height 170.2 cm Gian Villatoro MD Work Phone: [facility] 10-19-2018 08:44-0500 BMI (Body Mass Index) 26.58 kg/m2 [facility] Work Phone: 10-19-2018 08:44-0500 BP Diastolic 76 mm[Hg] Christin [facility] Work Phone: 10-19-2018 08:44-0500 BP Systolic 144 mm[Hg] [facility] Work Phone: 10-19-2018 08:44-0500 Height 172.7 cm [facility] Work Phone: 10-19-2018 08:44-0500 Pulse (Heart Rate) 92 /min [facility] Work Phone: 10-19-2018 08:44-0500 Pulse Oximetry 99 % [facility] Work Phone: 10-19-2018 08:44-0500 Respiratory Rate 16 /min [facility] Work Phone: 10-19-2018 08:44-0500 Weight 79.29 kg [facility] Work Phone: 10-12-2018 09:50-0500 BMI (Body Mass Index) 27.24 kg/m2 [facility] Work Phone: 10-12-2018 09:50-0500 Body Temperature 98.6 [degF] [facility] Work Phone: 10-12-2018 09:50-0500 BP Diastolic 80 mm[Hg] [facility] Work Phone: 10-12-2018 09:50-0500 BP Systolic 157 mm[Hg] [facility] Work Phone: 10-12-2018 09:50-0500 Height 169.5 cm [facility] Work Phone: 10-12-2018 09:50-0500 Pulse (Heart Rate) 94 /min [facility] Work Phone: 10-12-2018 09:50-0500 Weight 78.29 kg Alfredito kassie [facility] Work Phone: Encounters Encounter Date Encounter Type Care Provider Facility Start: 03-23-2025 ambulatory Clementina Montesinos Facility : [place] Start: 03-09-2025 ambulatory Steph X Orjosue Facilit y:DOTTIE Schroeder Start: 02-28-2025 End: 02-28-2025 Bamboo flowsheet Tony Hernandez MD Work Phone: [facility] Start: 02-28-2025 End: 02-28-2025 Bamboo flowsheet Tony Hernandez MD Work Phone: [facility] Start: 02-28-2025 End: 02-28-2025 Office outpatient new 45 minutes Tony Hernandez MD Work Phone: [facility] Comment on above: Other osteoporosis w ithout current pathological fracture; Liver transplant status; Organ transplant Start: 02-28-2025 End: 02-28-2025 ambulatory TONY HERNANDEZ Not Available Start: 02-24-2025 End: 02-24-2025 Refill Zuly Aichholz IT NETWORK ARCHITECT Work Phone: [facility] Comment on above: Elevated blood uric acid level (Primary Dx) Start: 02-08-2025 End: 02-08-2025 ambulatory ZULY AICHHOLZ Not Available Start: 02-01-2025 End: 02-01-2025 Refill Zuly Aichholz IT NETWORK ARCHITECT Work Phone: [facility] Comment on above: Primary hypertension (CMS/HCC) Start: 01-31-2025 End: 01-31-2025 Clinisync Result Encounter Generic External Data Provider [facility] External Department Unsolicited Start: 01-31-2025 End: 01-31-2025 Clinisync Result Encounter Generic External Data Provider [facility] External Department Unsolicited Start: 01-23-2025 ambulatory Steph [employer] Facility: [facility] Start: 01-13-2025 End: 01-13-2025 Orders Only Zuly Bruno IT NETWORK ARCHITECT Work Phone: [facility] Comment on above: Other osteoporosis w ithout current pathological fracture (CMS/HCC) (Primary Dx); Liver transplant status (CMS/HCC); Organ transplant Start: 01-05-2025 End: 01-06-2025 Refill Zuly Bruno IT NETWORK ARCHITECT Work Phone: [facility] Comment on above: Other polyneuropathy Start: 01-03-2025 End: 01-03-2025 ambulatory [employer] Facility:DOTTIE Schroeder Start: 01-03-2025 End: 01-03-2025 Patient encounter procedure [employer] [facility] Start: 12-28-2024 End: 12-28-2024 Clinisync Result Encounter Generic External Data Provider [facility] External Department Unsolicited Start: 12-28-2024 End: 12-28-2024 Clinisync Result Encounter Generic External Data Provider [facility] External Department Unsolicited Start: 12-26-2024 Non-patient / Non-visit Zuly olmedo Work Phone: [facility] Work Phone: Start: 12-26-2024 End: 12-26-2024 Admission to same day surgery center Zuly Bruno Work Phone: [facility] Work Phone: Start: 12-26-2024 End: 12-26-2024 ambulatory Zuly Bruno Work Phone: [facility] Work Phone: Start: 12-23-2024 End: 12-23-2024 Refill Zuly Bruno IT NETWORK ARCHITECT Work Phone: [facility] Start: 12-15-2024 End: 12-15-2024 ambulatory [facility] Work Phone: Start: 12-15-2024 End: 12-15-2024 Patient encounter procedure [facility] Work Phone: Start: 11-22-2024 End: 11-22-2024 ambulatory Steph X Orzech Facility:[facility] Start: 11-22-2024 End: 11-22-2024 Patient encounter procedure Steph X Orzech [facility] Start: 11-21-2024 End: 11-21-2024 Clinisync Result Encounter Generic External Data Provider [facility] External Department Unsolicited Start: 11-21-2024 End: 11-21-2024 Clinisync Result Encounter Generic External Data Provider [facility] External Department Unsolicited Start: 11-07-2024 End: 11-07-2024 Office outpatient visit 25 minutes Zuly Bruno IT NETWORK ARCHITECT Work Phone: [facility] Comment on [...] procedure Evan Colla RPh,PharmD [facility] [place] Start: 10-29-2024 End: 10-29-2024 Refill Zuly Bruno [...] Refill Momo Verdugo MD Work Phone: [facility] Comment on above: Decreased urine stre [...] Start: 09-08-2024 End: 09-08-2024 ambulatory Clementina Montesinos Facility:[facility] Start: 09-08-2024 End: 09-08-2024 Patient encounter procedure Clementina Montesinos [facility] Start: 09-07-2024 ambulatory ZULY BRUNO Facility: [facility] Start: 09-05-2024 End: 09-05-2024 ambulatory Angel Fete RPh,PharmD [facility] [place] Start: 09-05-2024 End: 09-05-2024 Patient encounter procedure Angel Carpio RPh,PharmD [facility] [place] Start: 08-29-2024 End: 08-29-2024 Clinisync Result Encounter Generic External Data Provider [facility] External Department Unsolicited Start: 08-29-2024 End: 08-29-2024 Clinisync Result Encounter Generic External Data Provider [facility] External Department Unsolicited Start: 08-24-2024 ambulatory [facility] Facility: [place] Start: 08-23-2024 End: 08-23-2024 Bamboo flowsheet Zuly Bruno IT NETWORK ARCHITECT Work Phone: [facility] Start: 08-23-2024 End: 08-23-2024 Bamboo flowsheet Zuly Bruno IT NETWORK ARCHITECT Work Phone: [facility] Start: 08-23-2024 End: 08-23-2024 Office outpatient visit 25 minutes Zuly Bruno IT NETWORK ARCHITECT Work Phone: [facility] Comment on [...] Start: 08-11-2024 End: 08-12-2024 Refill Zuly Bruno IT NETWORK ARCHITECT Work Phone: [facility] Comment on above: Primary hypertension (CMS/HCC) Start: 08-02-2024 End: 08-02-2024 Clinisync Result Encounter Generic External Data Provider [facility] External Department Unsolicited Start: 08-02-2024 End: 08-02-2024 Clinisync Result Encounter Generic External Data Provider [facility] External Department Unsolicited Start: 06-23-2024 End: 06-23-2024 ambulatory Meka Munoz [facility] [place] Start: 06-23-2024 End: 06-23-2024 Patient encounter procedure Meka Munoz [facility] [place] Start: 06-17-2024 End: 06-17-2024 Office outpatient visit 25 minutes Daisha Max DO Work Phone: [facility] Comment on above: Liver lesion (Primar y Dx); Liver transplant recipient; High risk medication use; Therapeutic drug monitoring; 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) Start: 06-17-2024 ambulatory ZULY KIANA Facility: [facility] Start: 05-26-2024 End: 05-26-2024 ambulatory Evan Bolton RPh,PharmD [facility]acy Outpatient [facility] [place] Start: 05-26-2024 End: 05-26-2024 Patient encounter procedure Evan Bolton RPh,PharmD [facility]patient [facility] [place] Start: 05-13-2024 End: 05-13-2024 ambulatory [facility] Start: 04-18-2024 End: 04-18-2024 [...] 03-02-2024 End: 03-02-2024 ambulatory Meka Munoz [facility] [place] Start: 03-02-2024 End: 03-02-2024 Patient encounter procedure Meak Munoz [facility] [place] Start: 03-01-2024 ambulatory HAKEEM ALAMO Facility :[facility] Start: 02-26-2024 End: 02-26-2024 Office outpatient new 30 minutes Candie Almaguer MD Work Phone: [facility] Comment on above: Heart failure, diast olic, acute (Primary Dx) Start: 02-11-2024 Patient encounter procedure Generic Provider [facility] Start: 01-16-2024 End: 01-23-2024 Evaluation and management of inpatient Reese Sage MD Work Phone: [id number] Comment on above: Pleural effusion on right Start: 01-16-2024 End: 01-23-2024 Patient encounter status Reese Sage MD Work Phone: [facility] Work Phone: Start: 01-12-2024 End: 01-12-2024 ambulatory Angel Fete RPh,PharmD [facility] [place] Start: 01-12-2024 End: 01-12-2024 Patient encounter procedure Angel Fete RPh,PharmD Pharmacy Outpatient [facility] [place] Start: 01-08-2024 Clinisync Result Encounter Generic External Data Provider [facility] External Department Unsolicited Start: 01-08-2024 Clinisync Result Encounter Generic External Data Provider [facility] External Department Unsolicited Start: 01-06-2024 End: 01-06-2024 Office outpatient visit 25 minutes Zuly Bruno NP Work Phone: [facility] Comment on above: Bilateral lower extr emity edema (Primary Dx); 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); Atherosclerosis 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); Obesity (BMI 30-39.9); DARLENE (obstructive sleep apnea); Tremor; Immunocompromised ([facility]); Primary hypertension ([facility]); Shortness of breath Start: 01-01-2024 Clinisync Result Encounter Generic External Data Provider [facility] External Department Unsolicited Start: 01-01-2024 Clinisync Result Encounter Generic External Data Provider [facility] External Department Unsolicited Start: 10-06-2023 ambulatory Angel Madsencolt RP,PharmD Pharmacy Outpatient [facility] [place] Start: 10-06-2023 Patient encounter procedure Angel Carpio LIVIA,PharmD [facility]patient [facility] [place] Start: 08-28-2023 End: 09-11-2023 Evaluation and management of inpatient Steve LEIGH Work Phone: [id number] Start: 08-28-2023 End: 08-28-2023 Office outpatient visit 25 minutes Steve MORENOBS Work Phone: [facility] Comment on above: Immunosuppressed sta tus (Primary Dx); Kidney replaced by transplant; Aftercare following organ transplant; High risk medication use; Other general symptoms and signs; Abnormal blood chemistry; Hypertension secondary to other renal disorders Start: 08-19-2023 ambulatory Meka rueda [facility] Pharm[facility] [place] Start: 08-19-2023 Patient encounter procedure Meka Munoz [facility] [place] Start: 06-12-2023 End: 06-12-2023 Office outpatient visit 25 minutes Steve MORENOBS Work Phone: [facility] Comment on above: 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) Start: 06-10-2023 ambulatory Maren Dipika RP,PharmD Pharm[facility]patient [facility] [place] Start: 06-10-2023 Patient encounter procedure Maren Hayeney RP,PharmD Pharmacy Outpatient [facility] [place] Start: 04-28-2023 End: 04-29-[address] DOCTOR EVANS Facility:[facility] Start: 03-12-2023 ambulatory Angel Madsene RPh,PharmD Pharmacy Outpatient [facility] [place] Start: 03-12-2023 Patient encounter procedure Angel Fete RPh,PharmD Pharmacy Outpatient [facility] [place] Start: 03-10-2023 ambulatory Angel Fete RPh,PharmD Pharmacy Outpatient [facility] [place] Start: 03-10-2023 Patient encounter procedure Angel Fete RPh,PharmD Pharmacy Outpatient [facility] [place] Start: 03-02-2023 End: 03-03-[address] DOCTOR EVANS Facility:[facility] Start: 01-16-2023 End: 01-16-2023 Office outpatient visit 25 minutes Daisha Max DO Work Phone: [facility] Comment on above: Abnormal blood chemi [...] MD Work Phone: [facility] Comment on above: BPH with obstruction /lower urinary tract symptoms (Primary Dx); Encounter for screening for malignant neoplasm of prostate Start: 08-28-2022 End: 08-29-2022 ambulatory ROB BRUNO Facility:[facility] Start: 08-14-2022 End: 08-15-[address] DOCTOR EVANS Facility:[facility] Start: 07-07-2022 End: 07-07-2022 Patient encounter procedure Ryan Yepez MD Work Phone: [facility] Comment on above: Other hydronephrosis (Primary Dx); [...] MD Work Phone: [facility] Comment on above: Other hydronephrosis (Primary Dx) [...] Phone: [facility] Comment on above: Immunosuppressed sta tus [...] [place] Facility: Start: 03-14-2022 ambulatory Comfort Rivera [facility] Work Phone: [facility]patient [facility] [place] Start: 03-14-2022 Patient encounter procedure Comfort Rivera [facility] Work Phone: [facility]patient [facility] [place] Start: 06-14-2021 End: 06-14-2021 ambulatory Comfort Rivera [facility] Work Phone: [facility] Start: 06-14-2021 Patient encounter procedure Comfort Rivera [facility] Work Phone: [facility] Start: 01-20-2020 End: 01-27-2020 Patient encounter procedure PEPE CASE Facility:[facility] Start: 01-06-2020 End: 01-07-2020 Patient encounter procedure [facility] Start: 01-06-2020 End: 01-06-2020 Subsequent hospital visit by physician [facility] Start: 10-24-2019 End: 10-25-2019 Patient encounter procedure [facility] Start: 10-24-2019 End: 10-24-2019 Subsequent hospital visit by physician [facility] Start: 08-27-2019 End: 08-28-2019 Patient encounter procedure [facility] Start: 08-27-2019 End: 08-27-2019 Subsequent hospital visit by physician [facility] Start: 08-08-2019 End: 08-09-2019 Patient encounter procedure [facility] Start: 08-08-2019 End: 08-08-2019 Subsequent hospital visit by physician [facility] Start: 08-03-2019 End: 08-04-2019 Patient encounter procedure [facility] Start: 08-03-2019 End: 08-03-2019 Subsequent hospital visit by physician [facility] Start: 08-01-2019 End: 08-02-2019 Patient encounter procedure [facility] Start: 08-01-2019 End: 08-01-2019 Subsequent hospital visit by physician FR[facility] Start: 06-10-2019 End: 06-11-2019 Patient encounter procedure [facility] Start: 06-01-2019 End: 06-02-2019 Patient encounter procedure [facility] Start: 01-14-2019 End: 01-15-2019 Patient encounter procedure [facility] Start: 11-17-2018 End: 11-17-2018 Patient encounter procedure Fidelina Pantojaman [facility] Pre Transplant Office Comment on above: Social Work Follow-u p Start: 10-19-2018 End: 10-19-2018 Patient encounter [facility] Pre Transplant Office Comment [...] End: 10-12-2018 Patient encounter procedure Sophie Fallonandrei [facility] Pre Transplant Office Comment [...] Rivera [facility] Work Phone: [facility] Procedures Date Procedure Procedure Detail Performing Clinician Start: 02-08-2025 End: 02-08-2025 H/O: liver recipient History of liver transplant Zuly Bruno IT NETWORK ARCHITECT Work Phone: Start: 02-08-2025 History of renal transplant History of kidney transplant Zuly Bruno IT NETWORK ARCHITECT Work Phone: Start: 01-31-2025 ALL CBC WITH [...] Phone: Start: 01-20-2024 ITRACONAZOLE LEVEL Fidelina Alarcon [facility] Work Phone: Start: 01-20-2024 Oscillating [...] Iadna nos quantification each organism Fidelina Alarcon [facility] Work Phone: Start: 01-18-2024 Echo [...] AURIS SCREEN BY PCR Carol Ann Velasco [facility] LEAK GANG SUPERVISOR-READING TEACHER Work Phone: Start: 01-08-2024 ALL CBC WITH [...] Phone: Start: 09-10-2023 Hepatic function panel Laurel Srerano MD, PhD Work Phone: Start: 09-09-2023 Assay [...] DARYL AURIS SCREEN BY PCR Carol Ann Rolilns ll LEAK GANG SUPERVISOR-READING TEACHER Work Phone: Start: 08-28-2023 CBC AND ELECTRONIC [...] on above: Performed By: #### CMP #### [facility] [address] [place] [address] Dr. Dwight Waters Start: 07-07-2022 Rmvl nfros [...] liver recipient Liver transplant recipient Comfort Rivera [facility] Work Phone: Start: 01-06-2020 Potassium serum plasma/whole blood ROB KASMANI Start: 01-06-2020 Potassium serum plasma/whole blood Kimbe allison Albertt Work Phone: Start: 11-30-2019 Transplant of kidney [facility] Start: 11-30-2019 Transplantation of liver [facility] Start: 10-24-2019 HEMOGLOBIN AND HEMATOCRIT, BLOOD ROB [...] -donor kidney transplant recipient Comfort Rivera [facility] Work Phone: Start: 06-10-2019 HEMOGLOBIN AND HEMATOCRIT, BLOOD ROB K ASMANI Start: 06-01-2019 Blood count hemoglobin ROB KASMANI Start: 03-22-2019 Lipid 1996 panel - Serum or Plasma Comfort Rivera [facility] recipient Liver trans plant status Zuly Bruno IT NETWORK ARCHITECT Work Phone: H/O: liver recipient S/P liver transplant (CMS/HCC) Zuly Bruno IT NETWORK ARCHITECT Work Phone: H/O: liver recipient Liver trans plant status (CMS/HCC) Zuly Bruno IT NETWORK ARCHITECT Work Phone: H/O: liver recipient Liver trans [...] ey replaced by transplant Rebecasa Rod Gutierrez LEAK GANG SUPERVISOR-ANALOG IC DESIGN ARCHITECT Work Phone: Plan of Treatment Date Care Activity Detail Author Start: 12-26-2034 Screening for malignant neoplasm of colon [facility] Start: 09-20-2029 Screening for malignant neoplasm of colon [facility] Start: 10-24-2025 Potassium [Moles/volume] in Serum or Plasma [facility] Start: 08-15-2025 Potassium [Moles/volume] in Serum or Plasma [facility]AS[facility] Start: 07-04-2025 Potassium [Moles/volume] in Serum or Plasma [facility] Start: 06-20-2025 Potassium [Moles/volume] in Serum or Plasma [facility] Start: 06-16-2025 End: 06-16-2025 Patient encounter procedure [facility] Start: 06-13-2025 Potassium [Moles/volume] in Serum or Plasma [facility] Start: 05-23-2025 Potassium [Moles/volume] in Serum or Plasma POTAS[facility]UM [facility] Start: 05-11-2025 End: 05-11-2025 Patient encounter procedure 05/11/2025 10:00 AM EDT [facility] [address] [place] [address] Zuly Bruno NP [address] [place] [address] [facility] Start: 03-28-2025 Potassium [Moles/volume] in Serum or Plasma [facility]AS[facility] Start: 03-21-2025 Potassium [Moles/volume] in Serum or Plasma [facility]AS[facility] Start: 03-21-2025 End: 03-21-2025 Patient encounter procedure 03/21/2025 9:40 AM EDT Office Visit [facility] [address] [place] [phone] Tony Hernandez MD [address] [place] [id number] [facility] Start: 02-28-2025 End: 02-28-2026 25-hydroxyvitamin D3 [Mass/volume] in Serum or Plasma Vitamin D 25 hydroxy Lab Routine Other osteoporosis without current pathological fracture ([facility]/HCC) Expected: 02/28/2025 (Approximate), Expires: 02/28/2026 [facility] Comment on above: Expected: 02/28/2025 (Approximate), Expi res: 02/28/2026 Start: 02-28-2025 End: 02-28-2026 Calcium, urine, 24 hour Calcium, urine, 24 hour Lab Routine Other osteoporosis without current pathological fracture ([facility]/HCC) Expected: 02/28/2025 (Approximate), Expires: 02/28/2026 [facility] Comment on above: Expected: 02/28/2025 (Approximate), Expi res: 02/28/2026 Start: 02-28-2025 End: 02-28-2026 Creatinine, urine, 24 hour Creatinine, urine, 24 hour Lab Routine Other osteoporosis without current pathological fracture ([facility]/HCC) Expected: 02/28/2025 (Approximate), Expires: 02/28/2026 [facility] Comment on above: Expected: 02/28/2025 (Approximate), Expi res: 02/28/2026 Start: 02-28-2025 End: 02-28-2026 Magnesium [Mass/volume] in Serum or Plasma Magnesium Lab Routine Other osteoporosis without current pathological fracture ([facility]/HCC) Expected: 02/28/2025 (Approximate), Expires: 02/28/2026 [facility] Work Phone: Comment on above: Expected: 02/28/2025 (Approximate), Expi res: 02/28/2026 Start: 02-28-2025 End: 02-28-2026 Parathyrin.intact [Mass/volume] in Serum or Plasma PTH, intact Lab Routine Other osteoporosis without current pathological fracture ([facility]) Expected: 02/28/2025 (Approximate), Expires: 02/28/2026 [facility] Comment on above: Expected: 02/28/2025 (Approximate), Expi res: 02/28/2026 Start: 02-28-2025 Potassium [Moles/volume] in Serum or Plasma [facility]OTAS[facility]UM [facility] Start: 02-28-2025 End: 02-28-2026 Renal function panel Renal function panel Lab Routine Other osteoporosis without current pathological fracture ([facility]/HCC) Expected: 02/28/2025 (Approximate), Expires: 02/28/2026 [facility] Comment on above: Expected: 02/28/2025 (Approximate), Expi res: 02/28/2026 Start: 02-28-2025 End: 02-28-2026 Sodium, urine, 24 hour Sodium, urine, 24 hour Lab Routine Other osteoporosis without current pathological fracture ([facility]) Expected: 02/28/2025 (Approximate), Expires: 02/28/2026 [facility] Comment on above: Expected: 02/28/2025 (Approximate), Expi res: 02/28/2026 Start: 02-28-2025 End: 02-28-2025 Patient encounter procedure [facility] Comment on above: Other osteoporosis without current patho logical fracture; Liver transplant status; Organ transplant Start: 02-10-2025 Medicare Annual Wellness (AWV) Medicare Annual Wellness (AWV) [facility] Start: 02-08-2025 End: 02-08-2025 Patient encounter procedure 02/08/2025 8:40 AM EDT Office Visit [facility] [address] [place] [address] Zuly Bruno NP [address] [place] [address] [facility] Start: 01-23-2025 Potassium [Moles/volume] in Serum or Plasma [facility]OTASSIUM [facility] Start: 12-26-2024 [facility] Start: 11-07-2024 End: 11-07-2024 Patient encounter procedure 11/07/2024 2:20 PM EST [facility] [address] [place] [address] Zuly Bruno, IT NETWORK ARCHITECT [address] [place] [phone] [facility] Start: 10-25-2024 End: 10-25-2024 Patient encounter procedure 10/25/2024 8:40 AM EST Office Visit [facility] [address] [place] [address] Zuly Bruno, IT NETWORK ARCHITECT [address] [place] [phone] [facility] Start: 09-29-2024 Influenza vaccination Influenza Vaccine (#1) [facility] Comment on above: Postponed from 07/31/2024 (Patient Refus ed) Start: 09-07-2024 End: 09-07-2024 Telemedicine consultation with patient 09/07/2024 3:00 PM EDT Telemedicine Infectious Diseases Care [facility] [address] [facility] [address] [place] [phone] Evan White DO [address] [place] [address] Infect[facility] Start: 08-31-2024 Screening for malignant neoplasm of lung [facility] Start: 08-23-2024 End: 08-23-2025 Bacteria identified in Urine by Culture Urine culture (clean catch) Microbiology Routine Dysuria Expected: 08/23/2024 (Approximate), Expires: 08/23/2025 [facility] Comment on above: Expected: 08/23/2024 (Approximate), Expi res: 08/23/2025 Start: 08-23-2024 End: 08-23-2025 DXA Skeletal system Views for bone density DEXA bone density Imaging Routine Immunocompromised (CMS/HCC) Organ transplant Expected: 08/23/2024, Expires: 08/23/2025 [facility] Work Phone: Comment on above: Expected: 08/23/2024, Expires: Start: 08-23-2024 End: 08-23-2025 Hemoglobin A1c/Hemoglobin.total in Blood Hemoglobin A1c Lab Routine Blood glucose elevated Expected: 08/23/2024 (Approximate), Expires: 08/23/2025 [facility] Comment on above: Expected: 08/23/2024 (Approximate), Expi res: 08/23/2025 Start: 08-23-2024 End: 08-23-2025 Lipid 1996 panel - Serum or Plasma Lipid panel Lab Routine Mixed hyperlipidemia (CMS/HCC) Expected: 08/23/2024 (Approximate), Expires: 08/23/2025 [facility] Comment on above: Expected: 08/23/2024 (Approximate), Expi res: 08/23/2025 Start: 08-23-2024 End: 08-23-2025 Prostate specific Ag [Mass/volume] in Serum or Plasma PSA Lab Routine Prostate cancer screening Expected: 08/23/2024 (Approximate), Expires: 08/23/2025 [facility] Comment on above: Expected: 08/23/2024 (Approximate), Expi res: 08/23/2025 Start: 08-23-2024 End: 08-23-2025 Thyrotropin [Units/volume] in Serum or Plasma TSH Lab Routine Tremor Expected: 08/23/2024 (Approximate), Expires: 08/23/2025 [facility] Comment on above: Expected: 08/23/2024 (Approximate), Expi res: 08/23/2025 Start: 08-23-2024 End: 08-23-2025 Urinalysis complete panel - Urine Urinalysis with reflex microscopic (clean catch) Lab Routine Dysuria Expected: 08/23/2024 (Approximate), Expires: 08/23/2025 [facility] Comment on above: Expected: 08/23/2024 (Approximate), Expi res: 08/23/2025 Start: 08-23-2024 End: 08-23-2025 US.doppler Carotid arteries - bilateral Vascular US carotid artery duplex bilateral Imaging Routine Left carotid bruit Mixed hyperlipidemia (CMS/HCC) Expected: 08/23/2024, Expires: 08/23/2025 [facility] Comment on above: Expected: 08/23/2024, Expires: Start: 08-23-2024 End: 08-23-2024 Patient encounter procedure 08/23/2024 8:40 AM EDT Office Visit [facility] [address] [place] [address] Zuly Bruno, BA [address] [place] [phone] Primary hypertension (CMS/HCC) (Primary Dx); Portal hypertension (CMS/HCC); Alcoholic cirrhosis of liver without ascites (CMS/HCC) [facility] Comment on above: Primary hypertension (CMS/HCC) (Primary Dx); Portal hypertension (CMS/HCC); Alcoholic cirrhosis of liver without ascites (CMS/HCC) Start: 08-22-2024 End: 08-22-2024 Patient encounter procedure 08/22/2024 9:00 AM EDT [facility] [address] [place] [address] Zuly Bruno, BA [address] [place] [phone] [facility] Start: 07-31-2024 Influenza vaccination INFLUENZA VACCINE (#1) [facility] Start: 06-17-2024 End: 06-17-2024 ambulatory [facility] Start: 06-17-2024 End: 06-17-2024 Patient encounter procedure [facility] Start: 03-22-2024 Fasting lipid profile LIPID SCREENING [facility] Start: 03-22-2024 Lipid panel [facility] Start: 02-26-2024 End: 02-26-2024 Patient encounter procedure 02/26/2024 9:30 AM EDT Office Visit [facility] [address] [place] [phone] Candie Almaguer MD [address] [place] [phone] [facility] Start: 02-11-2024 End: 02-11-2024 Patient encounter procedure 02/11/2024 10:30 AM EDT Office Visit [facility] [address] [place] [phone] Zuly Bruno NP [address] [place] [phone] [facility] Start: 02-09-2024 End: 02-09-2024 Telemedicine consultation with patient 02/09/2024 3:30 PM EDT Telemedicine Infectious Diseases Care [facility] [address] [phone] Hakeem Alamo MD [address] [place] [address] [facility] Start: 01-15-2024 End: 01-15-2024 ambulatory [facility] Start: 01-15-2024 End: 01-15-2024 Patient encounter procedure [facility] Start: 01-06-2024 End: 01-06-2026 Echocardiogram [...] Visit [facility] [address] [place] [address] Zuly Bruno, BA [address] [place] [phone] [facility] Start: 12-08-2023 End: 09-07-2024 CT Chest WO contrast [facility] Work Phone: Start: 12-01-2023 COVID-19 VACCINE (2 - Moderna risk series) COVID-19 VACCINE (2 - Moderna risk series) [facility] Start: 09-23-2023 End: 09-23-2023 ambulatory [facility] Start: 09-23-2023 End: 09-23-2023 Telemedicine consultation with patient 09/23/2023 4:00 PM EDT Telemedicine Infectious Diseases Care [facility] [address] [place] [address] Hakeem Alamo MD [address] [facility] [address] [place], [place] [phone] [facility] Start: 09-15-2023 End: 09-10-2024 ITRACONAZOLE LEVEL [facility] Start: 08-25-2023 End: 08-25-2024 ALLOSCREEN RECIPIENT (POST TX PRA) ALLOSCREEN RECIPIENT (POST TX PRA) Lab Routine Kidney replaced by transplant Aftercare following organ transplant Immunosuppressed status High risk medication use Other general symptoms and signs Abnormal blood chemistry Expected: 08/25/2023, Expires: 08/25/2024 [facility] Comment on above: Expected: 08/25/2023, Expires: Start: 07-31-2023 Influenza vaccination [facility] Start: 06-12-2023 End: 06-12-2023 Patient encounter procedure 06/12/2023 Office Visit Transplant Surgery Steve Munoz MBBS [address] [place] [address] [facility] Transplant [facility] Start: 03-11-2023 End: 03-11-2023 Telemedicine consultation with patient 03/11/2023 Telemedicine Urology Ryan Yepez MD [address] [facility] [address] [place] [address] [facility] Start: 01-16-2023 End: 01-16-2023 Patient encounter procedure 01/16/2023 Office Visit Transplant Surgery [facility] Transplant [facility] Start: 10-31-2022 End: 10-31-2022 Patient encounter procedure 10/31/2022 Office Visit Transplant Surgery Steve Munoz, MBBS [address] [place] [phone] [facility] Transplant [facility] Start: 09-10-2022 End: 09-10-2023 PSA screening PSA, SCREENING Lab Routine BPH with obstruction/lower urinary tract symptoms Encounter for screening for malignant neoplasm of prostate Expected: 09/10/2022 (Approximate), Expires: 09/10/2023 [facility] Comment on above: Expected: 09/10/2022 (Approximate), Expi res: 09/10/2023 Start: 08-11-2022 End: 08-11-2022 Patient encounter procedure 08/11/2022 Office Visit UrologRyan Batista MD [address] [facility] [address] [place] [phone] [facility] Start: 07-31-2022 Influenza vaccination [facility] Start: 07-07-2022 End: 07-07-2022 Patient encounter procedure 07/07/2022 Office Visit Ryan Webster MD [address] [facility] [address] [place] [address] [facility] Start: 07-07-2022 End: 07-07-2023 FLUORO IMAGING FOR UROLOGY [facility] Comment on above: Expected: 07/07/2022, Expires: 3 1 Occurrences starti ng 07/07/2022 until 07/07/2022 Start: 06-27-2022 End: 06-27-2022 Patient encounter procedure 06/27/2022 Office Visit Urology Ryan Yepez MD [address] [facility] [address] [place] [phone] Urology [facility] Start: 06-27-2022 End: 06-27-2023 Basic metabolic 2000 panel - Serum or Plasma BASIC METABOLIC PANEL Lab Routine Other hydronephrosis Expected: 06/27/2022, Expires: 06/27/2023 [facility] Comment on above: Expected: 06/27/2022, Expires: 3 Start: 06-27-2022 End: 06-27-2022 Patient encounter procedure 06/27/2022 Appointment Computerized Tomography Scan Ryan Yepez MD [address] [facility] [address] [place] [phone] Department of Radiology Start: 06-15-2022 End: 05-16-2023 CT Abdomen and Pelvis WO contrast CT ABDOMEN/PELVIS WITHOUT CONTRAST Imaging Routine FAYE (acute kidney injury) Expected: 06/15/2022 (Approximate), Expires: 05/16/2023 [facility] Work Phone: Comment on above: Expected: 06/15/2022 (Approximate), Expi res: 05/16/2023 Start: 06-12-2022 End: 06-12-2022 Patient encounter procedure 06/12/2022 Office Visit Transplant Surgery Steve Munoz MBBS [address] [place] [address] [facility] Start: 06-11-2022 End: 06-11-2023 BK VIRUS DNA QN, PCR, PLASMA BK VIRUS DNA QN, PCR, PLASMA Lab Routine Kidney replaced by transplant Liver replaced by transplant Abnormal blood chemistry Expected: 06/11/2022, Expires: 06/11/2023 [facility] Comment on above: Expected: 06/11/2022, Expires: Start: 06-04-2022 End: 06-04-2022 Patient encounter procedure 06/04/2022 Office Visit [facility]iology [facility] Start: 10-18-2021 End: 10-18-2021 Patient encounter procedure 10/18/2021 Office Visit Transplant Surgery Steve Munoz, LU [address] [place] [address] [facility] Start: 07-31-2021 Influenza vaccination INFLUENZA VACCINE (#1) [facility] Start: 07-26-2021 End: 07-26-2021 Patient encounter procedure 07/26/2021 Office Visit Transplant Surgery [facility] Start: 2021 Prostate specific antigen measurement [facility] Start: 2021 Screening for malignant neoplasm of lung LUNG CANCER SCREENING [facility] Start: 2021 Zoster vaccine hzv live for subcutaneous use ZOSTER (SHINGLES) VACCINE (1 of 2) [facility] Start: 09-20-2020 Colonoscopy COLORECTAL CANCER SCREENING DISCUSSION [facility] Start: 09-20-2020 Screening for malignant neoplasm of colon [facility] Start: 07-31-2019 Influenza vaccination Flu vaccine (#1) [place] Start: 05-22-2019 Annual Wellness Visit (AWV) Annual Wellness Visit (AWV) [place] Start: 04-18-2019 End: 10-19-2019 Ultrasonography of abdomen US ABDOMEN RUQ/LIVER/GB Routine Cirrhosis of liver without ascites, unspecified hepatic cirrhosis type Expected: 04/18/2019 (Approximate), Expires: 10/19/2019 [facility] Work Phone: Comment on above: Expected: 04/18/2019 (Approximate), Expi res: 10/19/2019 Start: 01-25-2019 End: 01-25-2019 Ambulatory 01/25/2019 Office Visit Gastroenterology Christin Elizabeth, [employer] SUPERVISOR-ANALOG IC DESIGN ARCHITECT [address] [place] [address] Division of Gastroenterology and Hepatology Gavin [...] Influenza vaccination INFLUENZA VACCINE (#1) [facility] Work Phone: Start: 2011 Fasting lipid profile LIPID SCREENING [facility] Work Phone: Start: 2011 Lipid screen Lipid screen [facility], [place] Start: 1990 DTaP/Tdap/Td vaccine (1 - Tdap) DTaP/Tdap/Td vaccine (1 - Tdap) [place], [place] Start: 1990 Hepatitis B vaccination HEP B VACCINE (1 of 3 - 19+ 3-dose series) [facility] Start: 1990 Hepatitis B Vaccine (1 of 3 - Risk Recombivax 3-dose series) Hepatitis B Vaccine (1 of 3 - Risk Recombivax 3-dose series) [place] Start: 1990 Third diphtheria, tetanus and acellular pertussis (DTaP) vaccination [facility] Start: 1990 Zoster vaccine hzv live for subcutaneous use ZOSTER (SHINGLES) VACCINE (1 of 2) [facility] Start: 1990 [facility] Start: 1989 Tetanus vaccination TETANUS [facility] Start: 1986 HIV screen HIV screen [place], [place] Start: 02-17-1984 HIV screening HIV SCREENING DISCUSSION [facility] Work Phone: Start: 1983 COVID-19 VACCINE (1) COVID-19 VACCINE (1) [facility] Start: 1982 DTaP/Tdap/Td vaccine (1 - Tdap) DTaP/Tdap/Td vaccine (1 - Tdap) [place] Start: 1977 Pneumococcal 0-64 years Vaccine (1 of 3 - PCV13) Pneumococcal 0-64 years Vaccine (1 of 3 - PCV13) [place] Start: 1977 PNEUMOCOCCAL VACCINE SERIES (1 - PCV) PNEUMOCOCCAL VACCINE SERIES (1 - PCV) [facility] Start: 1977 PNEUMOCOCCAL VACCINE SERIES (1 of 2 - PCV) PNEUMOCOCCAL VACCINE SERIES (1 of 2 - PCV) [facility] Start: 1977 [facility] Start: 02-17-1976 COVID-19 VACCINE (#1) COVID-19 VACCINE (#1) [facility] Start: 02-17-1976 [facility] Start: 1971 COVID-19 VACCINE (#1) COVID-19 VACCINE (#1) [facility] Start: 1971 Hepatitis B vaccination HEP B VACCINE (1 of 3 - 3-dose series) [facility] Start: 1971 Medicare Annual Wellness (AWV) Medicare Annual Wellness (AWV) [facility] Start: 1971 Screening for malignant neoplasm of colon [facility] Start: 1971 Tetanus vaccination [facility] BK VIRUS DNA QN, PCR , PLASMA BK VIRUS DNA QN, PCR, PLASMA Lab Routine Kidney replaced by transplant Liver replaced by transplant Abnormal blood chemistry 06/12/2022 3:38 PM EDT [facility] CALCULI, URINARY (KIDNEY STONE) CALCULI, URINARY (KIDNEY STONE) Fluids Routine 05/19/2022 8:16 AM EDT [facility] Work Phone: CANNABINOIDS, QUANT (URINE)THC CONFIRMATION CANNABINOIDS, QUANT (URINE)THC CONFIRMATION Routine Alcoholic cirrhosis, unspecified whether ascites present ESRD (end stage renal disease) on dialysis Pre-transplant evaluation for liver transplant 10/12/2018 12:57 PM [facility] Work Phone: End: 09-10-2024 CHEM 6 (LYTES, BUN CREA) [facility] EBV VCA IGG AB EBV VCA IGG AB R outine Alcoholic cirrhosis, unspecified whether ascites present ESRD (end stage renal disease) on dialysis Pre-transplant evaluation for liver transplant 10/12/2018 12:57 PM [facility] Work Phone: Fungus identified in Unspecified specimen by Culture [facility] HLA TYPING (SOLID ORGAN) [...] CONTRAST Imaging Routine Liver lesion Ordered: 06/17/2024 [facility] Comment on above: Ordered: 06/17/2024 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 specific culture [facility] Patient Education Hemorrhoids ED Diverticulosis Know your Meds [facility] Work Phone: PLACEMENT NEPHROSTOM Y CATHETER PERCUTANEOUS W/ IMAGE GUIDANCE PLACEMENT NEPHROSTOMY CATHETER PERCUTANEOUS W/ IMAGE GUIDANCE Imaging Routine Hydronephrosis due to obstruction of ureteral orifice FAYE (acute kidney injury) 05/17/2022 11:08 AM EDT [facility] PA POST VOID RESIDUAL PA POST VO ID RESIDUAL PA - OFFICE PERFORMED Routine BPH with obstruction/lower urinary tract symptoms Ordered: 09/10/2022 [facility] Comment on above: Ordered: [...] for 1 Occurrences starting 01/16/2024 until 01/16/2024 [facility] Comment on above: One Time for 1 Occurrences starting 12/31 until 01/16/2024 End: 09-10-2024 TACROLIMUS LEVEL, TROUGH (PRE DRUG LEVEL) [facility] VARICELLA IGG AB (IM M STATUS) VARICELLA IGG AB (IMM STATUS) Routine Alcoholic cirrhosis, unspecified whether ascites present ESRD (end stage renal disease) on dialysis Pre-transplant evaluation for liver transplant 10/12/2018 12:57 PM EST [facility] Work Phone: Immunizations Immunization Date Immunization Notes Care Provider Zeeshan yi 11-01-2024 influenza virus vaccine, unspecified formulation Steph Orzech [facility] 11-01-2024 influenza, seasonal, injectable, preservative free Zuly Bruno IT NETWORK ARCHITECT Work Phone: [facility] 11-03-2023 influenza virus vaccine, unspecified formulation Generic Provider [facility] 11-03-2023 Influenza, injectabl e, Madin Jing Canine Kidney, preservative free, quadrivalent Generic Provider [facility] 11-03-2023 Moderna SARS-CoV-2 50mcg/0.5mL Booster Generic Provider [facility] 08-28-2022 influenza virus vaccine, unspecified formulation Steph Orzech [facility] 08-28-2022 influenza, injectabl e, quadrivalent, preservative free Generic Provider [facility] 09-30-2021 influenza virus vaccine, unspecified formulation Steph Orzech [facility] 09-30-2021 influenza, injectabl e, quadrivalent, preservative free Generic Provider [facility] 09-30-2021 SARS-CoV-2 (COVID-19 ) mRNA-1273 vaccine Steph Orzech [facility] 02-21-2021 SARS-CoV-2 (COVID-19 ) mRNA-1273 vaccine Steph Orzech [facility] 01-24-2021 SARS-CoV-2 (COVID-19 ) mRNA-1273 vaccine Steph Orzech [facility] 10-16-2020 influenza virus vaccine, unspecified formulation Steph Orzech [facility] 10-16-2020 influenza, injectabl e, quadrivalent, contains preservative Generic Provider [facility] Payers Date Payer Category Payer Self-pay 2019 Unknown [id number] 2019 Unknown [facility] [id number] 2019-Present [id number] 2018 Medicaid MEDICAID [facility] DEPT OF JOB xxxxxxxxxxxx 2018-Present [phone] [address] [place] [address] xxxxxxxxxxxx [id number] [id number] 2018 Medicaid MEDICAID MEDICAI D [id number] 2018-Present [address] [place] [address] [id number] .[id number] 2018 Medicaid [id number] [id number] .[id number] 2018 Medicare MEDICARE MEDICAR E PART A AND B xxxxxxxxxxx 2018-Present [phone] [address] [address] [place] [address] xxxxxxxxxxx [id number] .[id number] 2018 Medicare [id number] 2018 Medicare MEDICARE MEDICAR E A AND B [id number] 2018-Present [address] [place] [address] [id number] [id number] .714120.315 2018 Medicare [id number]. 1.13.172.2.7.3 .[id number] 1971 Unknown [id number] 2.16.840.1.374833.3.579.2.173 1971 Unknown [id number] 2.16.840.1.864241.3.579.2.173 1971 Unknown [id number] 2.16.840.1.502600.3.579.2.173 1971 Unknown [id number] 2.16.840.1.367100.3.579.2.173 1971 Unknown [id number] 2.16.840.1.681515.3.579.2.173 1971 Unknown [id number] 2.16.840.1.418588.3.579.2.173 1971 Unknown [id number] 2.16.840.1.780172.3.579.2.173 1971 Unknown [id number] 2.16.840.1.403990.3.579.2.173 1971 Unknown [id number] 2.16.840.1.669503.3.579.2.647 1971 Unknown [id number] 2.16.840.1.991292.3.579.2.593 1971 Unknown [id number] 2.16.840.1.837973.3.579.2.593 1971 Unknown [id number] 2.16.840.1.322917.3.579.2.593 1971 Unknown [id number] 2.16.840.1.884429.3.579.2.593 1971 Unknown [id number] 2.16.840.1.243054.3.579.2.593 1971 Unknown [id number] 2.16.840.1.598979.3.579.2.593 1971 Unknown [id number] 2.16.840.1.806114.3.579.2.593 1971 Unknown [id number] 2.16.840.1.889727.3.579.2.593 1971 Unknown [id number] 2.16.840.1.423429.3.579.2.593 1971 Unknown [id number] 2.16.840.1.838038.3.579.2.593 1971 Unknown [id number] 2.16.840.1.888952.3.579.2.593 1971 Unknown [id number] 2.16.840.1.972215.3.579.2.593 1971 Unknown [id number] 2.16.840.1.904619.3.579.2.593 1971 Unknown [id number] 2.16.840.1.627512.3.579.2.593 1971 Unknown [id number] 2.16.840.1.975341.3.579.2.593 1971 Unknown [id number] 2.16.840.1.561022.3.579.2.727 1971 Unknown [id number] 2.16.840.1.404021.3.579.2.727 1971 Unknown [id number] .16.840.1.275842.3.579.2.727 1971 Unknown [id number] 2.16.840.1.170533.3.579.2.727 1971 Unknown [id number] .16.840.1.713504.3.579.2.727 1971 Unknown [id number] 2.16.840.1.643766.3.579.2.594 1971 Unknown [id number] 2.16.840.1.567764.3.579.2.594 1971 Unknown [id number] 2.16.840.1.010588.3.579.2.594 1971 Unknown [id number] 2.16.840.1.884334.3.579.2.594 1971 Unknown [id number] 2.16.840.1.903482.3.579.2.125 9 1971 Unknown [id number] 2.16.840.1.574902.3.579.2.125 9 1971 Unknown [id number] 2.16.840.1.701364.3.579.2.125 9 1971 Unknown [id number] 2.16.840.1.446738.3.579.2.125 9 1971 Unknown [id number] 2.16.840.1.310907.3.579.2.125 9 1971 Unknown [id number] 2.16.840.1.839643.3.579.2.125 9 1971 Unknown [id number] 2.16.840.1.143285.3.579.2.125 9 1971 Unknown [id number] 2.16.840.1.429438.3.579.2.125 9 1971 Unknown [id number] 2.16.840.1.364424.3.579.2.125 9 1971 Unknown [id number] 2.16.840.1.986037.3.579.2.125 9 1971 Unknown [id number] 2.16.840.1.232379.3.579.2.125 9 1971 Unknown [id number] 2.16.840.1.067309.3.579.2.125 9 1959 Medicaid [id number] 1959 Medicare [id number] Unknown [id number] 2.16.840.1.700225.3.579.2.531 Social History Date Type Detail Facility Start: 10-19-2018 End: 11-03-2023 Tobacco smoking status [facility] Former smoker [facility] Start: 07-19-1988 End: 05-14-2018 History of tobacco use Current smoker [facility] Work Phone: Start: 07-19-1988 End: 05-14-2018 History of tobacco use Cigarette Smoker [facility] Work Phone: Start: 10-19-2018 End: 02-06-2025 Cigarettes smoked current (pack per day) - Reported [facility] End: 07-19-1994 History of tobacco use Chews Tobacco [facility] Work Phone: Start: 1970 Sex Assigned At Not on file [facility] Work Phone: Start: 11-03-2018 Alcohol intake Current non-drinker of alcohol (finding) [place] Start: 06-22-2018 Alcohol Comment Hx of alcoholism [place] Start: 11-03-2018 End: 02-06-2025 Alcohol intake No [facility] Start: 07-19-2018 Tobacco use and exposure Former user [facility] Start: 09-06-2020 End: 02-08-2025 Alcohol intake Ex-drinker (finding) [facility] Start: 07-19-2018 Alcohol Comment stopped 05/14/2018 [facility] Start: 05-05-2022 End: 01-16-2023 Exposure to SARS-CoV-2 (event) Not sure [facility] Start: 07-07-2018 Gender identity Identifies as male gender (finding) [facility] Start: 01-16-2022 Sexual orientation [...] tobacco (finding) [facility] Do you belong to any clubs or organizations such as yarsani groups, unions, fraternal or athletic groups, or school groups? Yes [facility] Are you now , , , , never or living with a partner? [facility] Start: 12-15-2024 End: 12-26-2024 Sex Male (finding) [facility] Start: 1970 Sex Assigned At Male [facility] Do you feel stress - tense, restless, nervous, or anxious, or unable to sleep at night because your mind is troubled all the time - these days [OSQ] Not at all [facility] Medical Equipment Procedure Code Equipment Code Equipment Original Text Equipment Identifier Dates [id number] Start: 05-23-2020 [id number] Start: 04-12-2020 [id number] [facility] Start: 05-17-2022 Comment on above: Description: Implant time-out completed by intra-procedural staff including this RN, proc tech, and performing physician. The following was completed. [...] 01-03-2025 Functional Status N/A [facility] 11-22-2024 Functional Status N/A [facility] 09-08-2024 Functional Status N/A [facility] Clinical Notes 06-14-2021 to 02-28-2025 [...] 02/11/2024 Right nephrolithiasis 02/11/2024 S/P liver transplant ([facility] Takes dietary supplements Tremor 11/03/2023 Umbilical [...] weeks (around 03/21/2025). documented in this encounter [facility] 01-03-2025 Hospital Discharge instructions Patient Education 01/03/2025 [...] urethra. Follow these instructions at home: Take feoa-vqp-bqeqxxk and prescription medicines only as told by [...] provider. Document Revised: 06/04/2022 Document Reviewed: 06/04/2022 [employer] Patient Education 2023 [employer]. Follow Up Care 12/27/2024 09:54:21 With:JONATHAN Almodovar APRN, RUMA La, URL Address: When: Unknown [facility] 01-03-2025 Note Patient Education Urology Benign Prostatic [...] Follow these instructions at home: ??? Take yfxr-dos-ikaewsq and prescription medicines only as told by [...] do not get (more content not included)... [facility] 12-26-2024 Procedure note [facility] 12-15-2024 Evaluation note Authored December 15, [...] twice or three times daily if needed. [facility] Work Phone: [phone] 140-591712-24-2024 Hospital Discharge instructions Patient Education 11/22/2024 09:57:55 [...] if anything looks unusual. Males with a hubpxv-jekc-vnjqzm risk for skin cancer may want to see a skin washer (media professional) for an annual body check. Where to find more information [employer]: cancer.org Centers for Disease Control and Prevention: cdc.gov National Cancer [facility]: cancer.gov Contact a health care provider if: [...] provider. Document Revised: 11/24/2023 Document Reviewed: 06/08/2023 [employer] Patient Education 2023 [employer]. 11/22/2024 09:57:51 Erectile Dysfunction Erectile Dysfunction Erectile [...] Follow these instructions at home: Medicines Take ssgm-grv-vrufivd and prescription medicines only as told by [...] provider. Document Revised: 02/12/2022 Document Reviewed: 02/12/2022 [employer] Patient Education 2023 [employer]. 11/22/2024 09:57:50 Benign Prostatic Hyperplasia Benign Prostatic [...] urethra. Follow these instructions at home: Take bhxc-uzf-bdxoise and prescription medicines only as told by [...] provider. Document Revised: 06/04/2022 Document Reviewed: 06/04/2022 [employer] Patient Education 2023 [employer]. Follow Up Care 09/08/2024 14:18:18 With:Clementina James, URL Address: When: Unknown Comments:4 mos [facility] 12-24-2024 NotePatient Education Oncology Cancer [...] if anything looks unusual. Males with a tzpfli-prqt-bcsuir risk for skin cancer may want to see a skin washer (dermatologi (more content not included)...[facility]12-09-2024 History of Present illness Narrative* Zuly [...] 02/11/2024 Right nephrolithiasis 02/11/2024 S/P liver transplant ([facility]) Takes dietary supplements Tremor 11/03/2023 Umbilical [...] Ginette, continues w hepatology [facility] [id number] Instructions* Patient Instructions* Zuly Bruno NP - 11/07/2024 2:20 PM EST No medication dose changes Recommend cutting back on snacking, goal for 10 pounds weight loss by next visit Exercise as tolerated, most days of the week for approx 30 minutes, treadmill is great option Will reach out again to transplant team about options for osteoporosis documented in this encounterMiss[facility] [id number] History of Present illness Narrative* Gopi Noyola - 10/31/2024 12:18 PM EST [facility] OP RX OUTREACH ADVANCED: Shipping/Pickup: Patient has affirmed needing a refill of the following medications for Shipment (11/01) : Med Name: Mycophenolate 360mg Med Name: Tacrolimus 0.5mg Contact Info: Specialty ([place]) [phone] [facility] [phone] [facility] [phone] David [phone] Bedside Delivery ([facility]) [phone] [facility] Discharge instructions Patient Education [...] urethra. Follow these instructions at home: Take mszv-rpw-pdapoxw and prescription medicines only as told by [...] provider. Document Revised: 06/04/2022 Document Reviewed: 06/04/2022 [employer] Patient Education 2023 [employer]. Follow Up Care 08/25/2024 09:38:26 With:Jaguar CASTILLO, Clementina Mejias, URL Address: When:3 months Comments:med increase [facility] 10-10-2024 NoteUrology Office/Clinic Note Chief [...] Skin: No rashes or suspicious lesions Assessment/Plan IT NETWORK ARCHITECT referred by Zuly Bruno NP for weak [...] E&M of New Patient Moderate 45-59 Min 87125 2. Screening PSA (prostate specific antigen) (Z12.5: Encounter for screening for malignant neoplasmof prostate) No PSA records on file -Will discuss with patient at his follow up Ordered: E&M of New Patient Moderate 45-59 Min 54228 3. History of kidney transplant (Z94.0: Kidney transplant status) 08/29/24 - BUN 18, Cre 1.3, GFR 58 Pt had liver and kidney transplant in 2019 and follows yearly with [facility]. Ordered: E&M of New Patient Moderate 45-59 Min 92702 Orders: tamsulosin, 0.4 mg = 1 cap(s), Oral, BID, X 30 day(s), # 60 cap(s), Refills(s) 11, Pharmacy: [id number], 170, cm, 09/08/24 14:00:00 EDT, Height/Length Dosing, 90, kg, 09/08/24 14:00:00 EDT, Weight Dosing 23187 Measure Post Void residual urine and/or bladder capacity by US- non-imaging Urnls Dip Stick Auto w/o Microscopy POC 46141 Follow-up With When Contact Information Clementina James [...] Glucose Urine Dipstick: Negative (more content not included)...[facility] above:Result Comment: Electronically Signed By: Clementina James\.br\Date and Time Signed: 09/08/24 14:33 [id number] Note Patient Education Urology Benign Prostatic Hyperplasia [...] Follow these instructions at home: ? Take vsej-msi-eofixkc and prescription medicines only as told by [...] You develop side effec (more content not included)...[facility] History of Present illness Narrative* Starla [...] Required: No Receive/Pickup Date: 09/06/2024 Shipping Address: [address] [place] [address] 179 Contact Info: Specialty ([place]) [phone] Jakob [phone] [facility] [phone] [facility] [phone] Bedside Delivery ([facility]) [phone] documented in this encounterCommunity Regional Medical Center09-24-2024 History of Present illness Narrative* [...] Follows yearly with Hepatology documented [facility] this [facility]09-24-20[facility] Instructions* Patient Instructions* Zuly Bruno NP - 08/23/2024 8:40 AM EDT Labs, referrals to : GI, Urology Tests: bone density test documented [facility] this [facility]07-25-20[facility] History of Present illness Narrative* Starla [...] Required: No Receive/Pickup Date: 06/29/2024 Shipping Address: [address] [place] [address] Contact Info: Specialty ([place]) [phone] Jakob [phone] [facility] [phone] David [phone] Bedside Delivery ([facility]) [phone] documented in this encounterCommunity Regional Medical Center07-19-2024 History of Present illness Narrative* Daisha Max DO - 06/17/2024 10:00 AM EDT -Referring Provider for today's consult: Self, Self -Primary Care Provider: Zuly Bruno History of Present Illness George Styles is a 54 y.o. male who presents to the [facility] Transplant Hepatology Clinic today for [...] Left; Surgeon: Jyoti Bryant MD, PhD; Location: [facility] MAIN OR PLACEMENT NEPHROSTOMY CATHETER PERCUTANEOUS W/ IMAGE GUIDANCE 05/17/2022 Surgeon: Enzo Heart DO; Location: [facility] INTERVENTIONAL RADIOLOGY (VIR) LIVER TRANSPLANT, ORTHOTOPIC N/A 04/12/2020 Laterality: N/A; Surgeon: LU Palma; Location: [facility] SAME DAY SURGERY MAIN OR KIDNEY TRANSPLANT W/O UTE NEPHRECTOMY N/A 04/12/2020 Laterality: N/A; Surgeon: LU [...] 0.2 06/13/2024 Explant Pathology Pathologic Diagnosis A. [place] liver, orthotopic liver transplant resection (1458 gram): [...] up in 1 year. Daisha Max DO Driver Trainee Gastroenterology, Hepatology and Nutrition [facility] Pager: [phone] * José Miguel Garnica RN - 06/17/2024 10:00 AM EDT Images from the original note were not included. 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 Planner/Scheduler: Anayeli Burt Date of Liver Transplant: 04/13/2020 (Kidney), 04/13/2020 (Liver) 4 years, 2 months post Liver/KidneyTransplant Primary Disease: Hypertensive Nephrosclerosis Transplant Plate Cleaner: Erma Roe/ Daisha Max Primary Care physician: [...] LAB AND PHARMACY: None Specified [id number] [place] [address] - [address] [facility] [address] [address] [facility] [address] [facility] [facility] [address] [id number] [place] [address] - [address] [facility] [address] [facility] [address] [facility] Jakob [address], [place] [address] [facility] [address] ROS and SCREEN: Chest Pain: negative Cough: [...] year: no Do you follow with a Security Inspector? yes Do you have a Primary Care [...] TO ADDRESS WITH PHYSICIAN: documented in this encounterCommunity Regional Medical Center07-19-2024 Instructions* Patient Instructions* Ashlee Fair RN - 06/17/2024 10:00 AM EDT - No medication changes from a liver standpoint - A MRI Abdomen has been ordered today. Please call central scheduling at [phone] to schedule or take paper copy to your local hospital - Return to clinic 06/16/2025 TRANSPLANT HEPATOLOGY 3, [facility] as scheduled documented in this encounterCommunity Regional Medical Center07-19-2024 History of Present illness Narrative* Rebeca Gutierrez, LEAK GANG SUPERVISOR-ANALOG IC DESIGN ARCHITECT - 06/17/2024 9:30 AM EDT Images from the original note were not included. George Styles is a 54 y.o. 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 The HLA mismatch was 1A,2B, 1DR. No longer follows with a local wire galvanizer. History of Present Illness: Since George was [...] and lab results. Rebeca Gutierrez MSN, RN, LEAK GANG SUPERVISOR-BC, CCTN Certified Nurse Practitioner [facility] [address] [facility] [address] documented in this encounterCommunity Regional Medical Center07-19-2024 Instructions* Patient Instructions* JEANNA Hess - 06/17/2024 9:30 AM EDT Tacrolimus - increase to 0.2 mg packet three time per day; goal 3 to 5 ng/dL ; when the itraconazole stops 09/03/2024, reduce to 0.5 mg twice daily. Once your tacrolimus level is 3-5 ng/dL, you may reduce labs to every other week. documented in this encounterCommunity Regional Medical Center06-27-2024 History of Present illness Narrative* Destiny Jensen - 05/26/2024 4:33 PM EDT [facility] RX OUTREACH ADVANCED: Call Information: Date and Time of Contact: 05/26/2024 4:35 PM Method of Contact: By Phone Contact Type: Prescriptions Contactor: [facility] Contactee: Patient Contact Outcome: Left message and Follow-up Contact Info: Specialty ([place]) [phone] Jakob [phone] [facility] [phone] David [phone] Bedside Delivery ([facility]) [phone] * Melody Reyez - 05/26/2024 4:33 PM EDT [facility] OUTREACH ADVANCED: Call Information: Date and Time of Contact: 05/30/2024 4:52 PM Method of Contact: By Phone Contact Type: Prescriptions Contactor: Patient Contactee: [facility] OP Shipping/Pickup: Medicare B Refill?: No Medication Name: Myco sod 360mg, Prograf 0.2mg Delivery Method: Ship Delivery Location: Home Signature Required: No Receive/Pickup Date: 06/06/2024 Shipping Address: [address] [place] [address] Contact Info: Specialty ([place]) [phone] Jakob [phone] [facility] [phone] David [phone] Bedside Delivery ([facility]) [phone] documented in this encounterCommunity Regional Medical Center06-14-2024 NoteUT Cardiology - [facility] Subjective George Styles is a [...] Disp: , Rfl: t (more content not included)...[facility]04-25-[facility] History of Present illness Narrative* Melody Reyez - 03/24/2024 4:12 PM EDT [facility] OUTREACH ADVANCED: Call Information: Date and Time of Contact: 03/24/2024 4:14 PM Method of Contact: By Phone Contact Type: Prescriptions Contactor: [facility] OP Contactee: Patient Contact Outcome: Left message Shipping/Pickup: Medication Name: Prograf 0.2mg pack Contact Info: Specialty ([place]) [phone] Jakob [phone] [facility] [phone] David [phone] Bedside Delivery ([facility]) [phone] * Starla Edwards - 03/24/2024 4:12 PM EDT [facility] OUTREACH ADVANCED: Call Information: Date and Time of Contact: 03/28/2024 3:58 PM Method of Contact: By Phone Contact Type: Prescriptions Contactor: [facility] Contactee: Patient Contact Outcome: Left message and Call back later Shipping/Pickup: Medication Name: Mycophenolate, prograf Contact Info: Specialty ([place]) [phone] Jakob [phone] [facility] [phone] David [phone] Bedside Delivery ([facility]) [phone] * Gabbi Rajput - 03/24/2024 4:12 PM EDT [facility] OUTREACH ADVANCED: Call Information: Method of Contact: By Phone Contact Type: Prescriptions Contactor: Patient Contactee: [facility] Shipping/Pickup: Medicare B Refill?: No Medication Name: Mycopheolate 360mg and Prograf Delivery Method: Ship Delivery Location: Home Signature Required: No Receive/Pickup Date: 04/04/2024 Shipping Address: [address] [place] [address] 179 Contact Info: Specialty ([place]) [phone] Jakob [phone] [facility] [phone] David [phone] Bedside Delivery ([facility]) [phone] documented in this encounterCommunity Regional Medical Center04-25-2024 History of Present illness Narrative* Melody Reyez - 03/24/2024 4:12 PM EDT [facility] OUTREACH ADVANCED: Call Information: Date and Time of Contact: 03/24/2024 4:14 PM Method of Contact: By Phone Contact Type: Prescriptions Contactor: [facility] Contactee: Patient Contact Outcome: Left message Shipping/Pickup: Medication Name: Prograf 0.2mg pack Contact Info: Specialty ([place]) [phone] [facility] [phone] [facility] [phone] David [phone] Bedside Delivery ([facility]) [phone] * Starla Edwards - 03/24/2024 4:12 PM EDT [facility] OUTREACH ADVANCED: Call Information: Date and Time of Contact: 03/28/2024 3:58 PM Method of Contact: By Phone Contact Type: Prescriptions Contactor: [facility] Contactee: Patient Contact Outcome: Left message and Call back later Shipping/Pickup: Medication Name: Mycophenolate, prograf Contact Info: Specialty ([place]) [phone] [facility] [phone] [facility] [phone] David [phone] Bedside Delivery ([facility]) [phone] * Gabbi Rajput - 03/24/2024 4:12 PM EDT [facility] OUTREACH ADVANCED: Call Information: Method of Contact: By Phone Contact Type: Prescriptions Contactor: Patient Contactee: [facility] Shipping/Pickup: Medicare B Refill?: No Medication Name: Mycopheolate 360mg and Prograf Delivery Method: Ship Delivery Location: Home Signature Required: No Receive/Pickup Date: 04/04/2024 Shipping Address: [address] [place] [address] Contact Info: Specialty ([place]) [phone] [facility] [phone] [facility] [phone] [facility] [phone] Bedside Delivery ([facility]) [phone] * Meka Munoz [facility] - 03/24/2024 4:12 PM EDT [...] Within normal limits Contact Info: Specialty ([place]) [phone] Jakob [phone] [facility] [phone] David [phone] Bedside Delivery ([facility]) [phone] documented in this encounterCommunity Regional Medical Center04-03-2024 History of Present illness Narrative* [...] del of [place] Contact Info: Specialty ([place]) [phone] [facility] [phone] [facility] [phone] [facility] [phone] Bedside Delivery ([facility]) [phone] * Andressa Gutiérrez - 03/02/2024 8:14 AM EDT [facility]RE[facility]: Call Information: Date and Time of Contact: 03/02/2024 3:49 PM Method of Contact: By Phone Contact Type: Prescriptions Contactor: [facility] Contactee: Patient Contact Outcome: Left message and Follow-up Shipping/Pickup: Medication Name: Myco 360mg and Prograf 0.2mg Contact Info: Specialty ([place]) [phone] Jakob [phone] [facility] [phone] David [phone] Bedside Delivery ([facility]) [phone] * Mckenna Stuart - 03/02/2024 8:14 AM EDT [facility]REACH [facility]VANC[facility]: Call Information: Date and Time of Contact: 03/02/2024 4:08 PM Method of Contact: By Phone Contact Type: Prescriptions Contactor: [facility] Contactee: Patient Shipping/Pickup: Medicare B Refill?: No Medication Name: Myco 360 / prograf 0.2 Delivery Method: Ship Delivery Location: Home Signature Required: No Receive/Pickup Date: 03/03/2024 Shipping Address: [address] [place] [address] [address] Contact Info: Specialty ([place]) [phone] [facility] [phone] [facility] [phone] [facility] [phone] Bedside Delivery ([facility]) [phone] documented in [facility] encounter[facility] History of Present illness Narrative* Marsha Mckeon [...] at the [facility] on 02/26/2024 for initial evaluation of heart [...] Left; Surgeon: Jyoti Bryant MD, PhD; Location: [facility] MAIN OR PLACEMENT NEPHROSTOMY CATHETER PERCUTANEOUS W/ IMAGE GUIDANCE 05/17/2022 Surgeon: Enzo Heart DO; Location: [facility] INTERVENTIONAL RADIOLOGY (VIR) LIVER TRANSPLANT, ORTHOTOPIC N/A 04/12/2020 Laterality: N/A; Surgeon: LU Palma; Location: [facility] SAME DAY SURGERY MAIN OR KIDNEY TRANSPLANT W/O UTE NEPHRECTOMY N/A 04/12/2020 Laterality: N/A; Surgeon: LU Palma; Location: [facility] SAME DAY SURGERY MAIN OR [...] qd Antithrombotic: no Statin: no ICD: NA ELEMENTARY SCHOOL MUSIC TEACHER: NA CV Test results: ECHOCARDIOGRAM 01/18/2024 (Final) Interpretation Summary Left Ventricle: Chamber size is normal. Increased wall thickness. Concentric hypertrophy. Normal global systolic function. Regional wall motion is normal. Ejection fraction is normal (55 - 60%). Right Ventricle: Chamber size is normal. Systolic function is low normal. No hemodynamically significnat valve disease. Moderate pericardial effusion. There is no evidence of tamponade. [facility] (01/20/24) Hemodynamic Summary: Baseline Hemodynamics Systemic [...] will be BP control. Candie Almaguer M.D. card doffer Advanced Heart Failure Program Division of Cardiovascular Medicine [facility] [email or web address] ph [phone] fax [phone] documented in this encounterOS[facility]03-29-[facility]24 Instructions* Patient Instructions* Marsha Mckeon RN - 02/26/2024 9:30 AM EDT The following instructions were given today: Labs today Follow up with Dr. Almaguer as needed. Your after visit summary (AVS) is viewable in [facility]. Call RN if you have cardiac questions/concerns M-F 8 to 4:30 ; office # [phone], option 6, then option 2. Guidelines for home management: 1. Continue to monitor weight first thing each morning. 2. Report to the CHF CLINIC ([phone]) any significant weight change. Remember that weight [...] labs/tests run outside of the [facility] and you do not hear from us1-2 days after they are performed, you must call us to ensure we received the results. Office fax #[phone]. No news does not necessarily mean that your tests are normal, it could mean we did not get the results. For questions/updates: please provide your name with spelling, date of and question or update All calls are prioritized and responses researched, if possible, prior to calls being returned. Call Scheduling for any appointment/procedure verification or changes [phone], option 7 or [facility] at [phone], option 1. documented in this encounterCommunity Regional Medical Center02-24-2024 Nurse Note* Nursing Notes - Terra eHart RN - 01/23/2024 3:49 PM EST Jakob [...] to transport home on home oxygen supply. [facility]02-24-2024 Miscellaneous Notes* Nursing Notes - [...] 01/22/2024 1:34 PM EST George Tray Styles ([id number]) PRE OPERATIVE DIAGNOSIS High output congestive heart failure [I50.83] POST OPERATIVE DIAGNOSIS Post-Op Diagnosis Codes: * High output congestive heart failure [I50.83] PROCEDURE PERFORMED Procedure(s) (LRB): LIGATION ANGIOACCESS AVF (Left) Resection of large aneurysmic vein PRIMARY CLOSURE Yes INTRAOPERATIVE FINDINGS No significant abnormalities SURGEON Surgeons and Role: * Jyoti Bryant MD, PhD - Primary ANESTHESIOLOGIST Anesthesiologist: Celena Tiwari MD; Kehinde Gutierrez MD CARDROOM MANAGER: David Jasso APRN-HUGO Stogy Maker Assisting: Mini Khan MD SURGICAL STAFF Pyrometer Mechanic: Zoila Lawrence RN Relief Pyrometer Mechanic: Marimar Saravia RN Relief Scrub: Briseyda Self [...] patent, patient breathing easily. Report received from director medical surgical and report received from anesthesiology. Pt [...] Axillary block. SURGEON(S): Jyoti Bryant MD, PHD DAIRY FARM MANAGER: Mynor Fall MD ESTIMATED BLOOD LOSS: [...] Jyoti Bryant MD, PHD ATTENDING SHANNON/[employer] JOB: [id number] DOC: [id number] * Plan of Care - Tati Ahmadi [...] overnight coverage, Jasper Gastelum MD, via pager #[phone] Pt- George Styles. Sarah 1082. TM1. Was wondering if he can have his Melatonin order increased to 6mg. Per pt, he usually takes 8mg at home. -SAMI Duffy #[phone] Tati Charles RN * Plan of Care - Arelis Mera MD - 01/16/2024 7:27 AM EST Internal Medicine Daily Progress Note Patient: George Styles, 1970, [id number] Physician: Arelis Mera MD, PGY3, Pager #[phone], TM1 service Assessment/Plan: George Styles is a [...] home amlodipine 5mg CAD: non-obstructive CAD on [facility] 2018. - continue home aspirin 81mg daily, [...] AM EST Mr. Styles was admitted to [address] [place] [address]. On admission to 0, from outside facility a dual RN initial assessment of skin condition was performed by Izzy Gutierrez RN and Leroy Singleton RN. Skin Assessment: Skin within defined limits:Yes Jose Score: 20 Wound Vision Resident Medical Officer images obtained: No LDA Added: No Based [...] nurses station when available. documented in this encounterCommunity Regional Medical Center02-24-2024 Nurse Note* Nursing Notes - [...] at 4L of oxygen is also required.) [facility]02-[facility] History of Present illness Narrative* [...] mg Oral Daily Kelvin Smith MD, MBBS forest landscape ecology professor Transplant nephrology * Leonel Harris DO [...] monitor Leonel Harris DO General Surgery Pager [phone] * Girish Salvador RN - 01/22/2024 3:14 PM EST CM went to bedside to talk with patient. Patient states he has home oxygen through [employer]. He uses 2.5 LNC around the clock. Patient states his brother will bring a tank for discharge. Anticipate patient will discharge tomorrow AM. Brother updated. Girish Oro RN, BSN Clinical Environmental Attorney Please note that I am a float rn case manager and may not cover the same service every day. Please call the main Case Management office at [phone] for up-to-date coverage. Verified patients identity using [...] Daily Progress Note Patient: George Styles, 1970, [id number] Physician: Yury Ozuna MD, PGY1, Pager #[phone], WZ6 service Assessment/Plan: George Styles is a [...] home amlodipine 5mg CAD: non-obstructive CAD on [facility] 2018. - continue home aspirin 81mg daily, [...] agreed with the Nutrition plan outlinedin the Support Staff s note. DVT prophylaxis with lovenox Diet [...] in resident note. Kelvin Smith MD, MBBS forest landscape ecology professor Transplant nephrology * Kelvin Smith MD, [...] Oral BID AC Kelvin Smith MD, MBBS forest landscape ecology professor Transplant nephrology * Yury Ozuna MD - 01/20/2024 9:31 AM EST Images from the original note were not included. Internal Medicine Daily Progress Note Patient: George Styles, 1970, [id number] Physician: Yury Ozuna MD, PGY1, Pager #[phone], TM1 service Assessment/Plan: George Styles is a [...] home amlodipine 5mg CAD: non-obstructive CAD on [facility] 2018. - continue home aspirin 81mg daily, [...] agreed with the Nutrition plan outlinedin the Support Staff s note. DVT prophylaxis with lovenox Diet [...] further questions. Name: Heidy Chatman Phone #: [phone] Date/Time: 01/19/2024 12:08 PM Time Spent: 15 minutes Associated attestation - Fidelina Alarcon RPH - 01/19/2024 12:41 PM EST Department of Pharmacy Admission Medication Reconciliation Note Patient: George Styles Room/Bed: 1082/A I have reviewed the home medication list with the Prefinish Operator. The home medication list status is: complete. All changes to the home medication list have been updated in [facility]. Updated FRAME AND SCRAP CRUSHER Med List: Prior to Admission Medications Prescriptions [...] with any further questions. Name: Fidelina Davisamanda [facility] Phone #: [phone] Date/Time: 01/19/2024 12:41 PM * Yury Ozuna MD - 01/19/2024 11:10 AM EST Internal Medicine Daily Progress Note Patient: George Styles, 1970, [id number] Physician: Yury Ozuna MD, PGY1, Pager #[phone], JF8 service Assessment/Plan: Acute Hypoxic Respiratory Insufficiency GARCIA, [...] home amlodipine 5mg CAD: non-obstructive CAD on [facility] 2018. - continue home aspirin 81mg daily, [...] agreed with the Nutrition plan outlinedin the Support Staff s note. DVT prophylaxis with lovenox Diet [...] mg Oral Daily Kelvin Smith MD, MBBS forest landscape ecology professor Transplant nephrology * Yury Ozuna MD - 01/18/2024 2:53 PM EST Internal Medicine Daily Progress Note Patient: George Styles, 1970, [id number] Physician: Yury Ozuna MD, PGY1, Pager #[phone], TM1 service Assessment/Plan: Updates: - continued diuresis [...] home amlodipine 5mg CAD: non-obstructive CAD on [facility] 2018. - continue home aspirin 81mg daily, [...] agreed with the Nutrition plan outlinedin the Support Staff s note. DVT prophylaxis with lovenox Diet [...] in resident note. Kelvin Smith MD, MBAPOORVA forest landscape ecology professor Transplant nephrology * Angie Singh [facility] - 01/18/2024 1:42 PM EST Pt known to bat boy/girl from previous admissions. Provided emotional and spiritual support. Patient shared about: family support, medical course Negative Cleaner provided: - Supportive presence - Active listening - Validation of feelings/emotions Patient encouraged to request a bat boy/girl as needed. Chaplains are available in-house 24 hours a day and 7 days a week. For urgent matters in [facility], please page [phone]. If the request is not urgent, please enter a consult. Consults are responded to within 24 hours. Senior Staff Negative Cleaner Angie Singh Mdiv, [facility] Kirk [phone] [email or web address] On-call TYLOR: call center representative David: 22/06 Pager ,[facility], and Brock 1500 David Pager [phone] 01/18/24 1343 Clinical Encounter Type Visited With Patient Visit Type Introduction Pastoral Time Spent 15 min Referral Other (See Comment) (rounding) Spiritual Assessment Emotional Observation Coping well;Anxiety Hope Observation Specific hope focus Support Observation By Family Interventions Provided Active listening;Supportive presence Facilitated Verbalization of feelings;Identifying support system;Identifying Sources of spiritual well-being Explored Expectations;Treatment decisions Nascar Driver Education Nascar Driver Service Available Yes Educated Patient Outcomes Patient [...] interaction. Name: Fidelina Alarcon RPH Phone #: [phone] Date/Time: 01/18/2024 9:56 AM * Kasandra Hurt [...] Yes Name and Contact information: Gian Styles ([phone]) Would you like to add additional adult [...] oxygen?: Yes Oxygen Provider and Contact : BioCee Liter-Flow?: 20/01-3 Order for oxygen use?: unknown [...] patient on Anticoagulation? : No [id number] [place] [address] - [address] [facility] [address] [facility] [address] Pediatrician Active Practice Does the patient or national account representative express financial concerns? : No Employed?: Disabled Coping/Stress Concerns about patient s coping and stress?: No Concerns about patient s caregiver s coping and stress?: No Values and Beliefs Cultural or cheondoism practices that may impact discharge planning and/or [...] Plan 1. Identified self and role as Environmental Attorney. 2. Confirmed and updated demographics and treatment team. 3. Environmental Attorney will continue to follow with medical team for any other additional discharge needs. Kasandra DON RN *Please note I am float and work Thursday and Thursday every other week. Please call [phone] for assist in my absence. * Yury Ozuna MD - 01/17/2024 1:57 PM EST Internal Medicine Daily Progress Note Patient: George Styles, 1970, [id number] Physician: Yury Ozuna MD, PGY1, Pager #[phone], TM1 service Assessment/Plan: Updates: - continue diuresis [...] home amlodipine 5mg CAD: non-obstructive CAD on [facility] 2018. - continue home aspirin 81mg daily, [...] ordered 2D echo. Reese Sage MD, MADISONN Driver Trainee of Clinical Medicine [facility] documented in this encounterCommunity [facility] Center[facility] Plan of care note* Plan [...] Symptoms (Acute Pain): verbalization of pain descriptors [facility] Hospital Discharge instructions* Discharge Instructions* [...] your doctor for further instructions. Please call [phone], Option 1 or [phone] to schedule your appointment with the Heart Failure Clinic. * Discharge Instr - Wound Care* Arelis Mera MD - 01/22/2024 3:08 PM EST You can change your dressing 48 hours from the procedure * Attachments The following attachments cannot be sent through Care Everywhere. * Heart Failure: Avoiding Triggers ([place]) * Heart Failure: Limiting Sodium ([place]ian) * Pain and Pain Control ([facility]) ([place]) documented in this encounter[facility] Surgery Postoperative evaluation and management note* Brief Op Note - Jyoti Bryant MD, PhD - 01/22/2024 1:34 PM EST George Styles ([id number]) PRE OPERATIVE DIAGNOSIS High output congestive heart failure [I50.83] POST OPERATIVE DIAGNOSIS Post-Op Diagnosis Codes: * High output congestive heart failure [I50.83] PROCEDURE PERFORMED Procedure(s) (LRB): LIGATION ANGIOACCESS AVF (Left) Resection of large aneurysmic vein PRIMARY CLOSURE Yes INTRAOPERATIVE FINDINGS No significant abnormalities SURGEON Surgeons and Role: * Jyoti Bryant MD, PhD - Primary ANESTHESIOLOGIST Anesthesiologist: Celena Tiwari MD; Kehinde Gutierrez MD CARDROOM MANAGER: David Jasso APRN-CARDROOM MANAGER Stogy Maker Assisting: Mini Khan MD SURGICAL STAFF Pyrometer Mechanic: Zoila Lawrence RN Relief Pyrometer Mechanic: Marimar Saravia RN Relief Scrub: Briseyda Self Scrub Person: Cinda Mai RN Resident Assisting: Leonel Harris DO Fellow: Miki Mcgowan MD, MBBS COMPLICATIONS None ESTIMATED BLOOD LOSS Minimal SPECIMENS No specimen sent * No specimens in log * Jyoti Bryant MD, PhD January 22, 2024 1:34 PM [facility] Work Phone: 1(942) 510-579602-23-2024 Nurse Note* Nursing Notes - Justin Almendarez RN - 01/22/2024 1:24 PM EST Arrived to PACU assisted by anesthesiology. Connected to monitors. Turned side to side, OR linens removed, repositioned. Airway patent, patient breathing easily. Report received from director medical surgical and report received from anesthesiology. Pt arrived awake. VSS. Sats slightly low. Pulm rehab used. Sats currently 3lpm @ 93%. Pt states he uses CPAP nocturnally. A&Ox4. Nerve block left arm, elevated. [facility] Surgery Postoperative evaluation and management [...] Axillary block. SURGEON(S): Jyoti Bryant MD, PHD DAIRY FARM MANAGER: Mynor Fall MD ESTIMATED BLOOD LOSS: [...] Jyoti Bryant MD, PHD ATTENDING AR/MedFlorencio JOB: [id number] DOC: [id number] [facility]02-23-2024 Plan of care note* Plan of Care [...] 1939 Plan Of Care Reviewed With: patient [facility]02-21-2024 Consult note* Starla Morris MD - 01/20/2024 2:15 PM ESTAssociated Order(s): IP CONSULT TO SURGERY - TRANSPLANT (RENAL) Images from the original note were not included. TRANSPLANT SURGERY CONSULT NOTE: Consult: 01/20/2024, 4:03 PM Press Technician: Starla Morris MD Reason for Consult: Requesting Dr Carson Bryant for AVF revision/closure given new onset high output heart failure George Styles is a 53 y.o. male CURRENT HOSPITALIZATION LOS: Admit Date: 01/16/2024 [facility] Hospital LOS: 4 days George [...] DAY SURGERY MAIN OR KIDNEY TRANSPLANT W/O UTE NEPHRECTOMY N/A 04/12/2020 Laterality: N/A; Surgeon: LU Palma; Location: [facility] SAME DAY SURGERY MAIN OR [...] mg 20 mg Oral BID AC Arelis Mear MD FAMILY HISTORY: SOCIAL HISTORY: REVIEW OF [...] seen and staffed with Dr. Mcgowan fellow operations and maintenance supervisor Thank you, Starla Morris MD Associated attestation - Jyoti Bryant MD, PhD - 01/22/2024 10:54 AM EST I. Jyoti Bryant MD, PhD, have independently seen and examined the patient, reviewed the labs, discussed the patient with the fellow/resident and agree with the note. [facility] Work Phone: 1(673) 302-410202-21-2024 Consult note* Starla Morris MD - 01/20/2024 2:15 PM ESTAssociated Order(s): IP CONSULT TO SURGERY - TRANSPLANT (RENAL) Images from the original note were not included. TRANSPLANT SURGERY CONSULT NOTE: Consult: 01/20/2024, 4:03 PM Press Technician: Starla Morris MD Reason for Consult: Requesting Dr Carson Bryant for AVF revision/closure given new onset high output heart failure George Styles is a 53 y.o. male CURRENT HOSPITALIZATION LOS: Admit Date: 01/16/2024 [facility] Hospital LOS: 4 days George [...] GUIDANCE 05/17/2022 Surgeon: Enzo Heart DO; Location: [facility] INTERVENTIONAL RADIOLOGY (VIR) LIVER TRANSPLANT, ORTHOTOPIC N/A 04/12/2020 Laterality: N/A; Surgeon: LU Palma; Location: [facility] SAME DAY SURGERY MAIN OR KIDNEY TRANSPLANT W/O UTE NEPHRECTOMY N/A 04/12/2020 Laterality: N/A; Surgeon: LU Palma; Location: [facility] SAME DAY SURGERY MAIN OR [...] seen and staffed with Dr. Mcgowan fellow operations and maintenance supervisor Thank you, Starla Morris MD Associated [...] DAY SURGERY MAIN OR KIDNEY TRANSPLANT W/O UTE NEPHRECTOMY N/A 04/12/2020 Laterality: N/A; Surgeon: LU Palma; Location: [facility] SAME DAY SURGERY MAIN OR [...] (order for outpatient) Please SecureChat or Call ([phone]) for any questions. Await attending attestation for final recommendations. Hank Noel MD Division of Gastroenterology, Hepatology, and Nutrition Clinical Fellow, PGY-5 Pager: [phone] For urgent/stat calls or consults 5pm to 7am, please page the on-call GI fellow on QGenda. [facility]--> Internal Medicine--> Gastroenterology, Hepatology, & Nutrition--> 1st Call Janae Hatfield For urgent/stat calls or consults 7am to 5pm during the weekend, please page the on-call GI fellow on QGenda. [facility]--> Internal Medicine--> Gastroenterology, Hepatology, & Nutrition--> All Hep & East Wknd Cons Fel Day For follow up questions regarding this patient 7am to 5pm during the weekday, contact the Hepatology consults fellow or CARLOS A on QGenda. [facility]--> Internal Medicine--> Gastroenterology, Hepatology, & Nutrition--> [...] Michael Estrada MD, MSc documented in this encounterOSW[facility]-20-[facility] Nurse Note* Nursing Notes - Paulette [...] 95-96% when talking/moving. Paulette Cordon RN [facility]02-20-2024 Nurse Note* Nursing Notes - Tati Charles RN - 01/19/2024 12:10 AM EST Paged overnight coverage, Jasper Gastelum MD, via pager #[phone] Pt- George Styles. Sarah 1082. TM1. Was wondering if he can have his Melatonin order increased to 6mg. Per pt, he usually takes 8mg at home. -SAMI Duffy #[phone] Tati Charles RN [facility]02-[facility] Consult note* Hank Noel MD - 01/18/2024 1:24 PM ESTAssociated Order(s): IP CONSULT TO HEPATOBILIARY N [facility] Main Hepatology Consult WebExchange --> IM Consult Serv [facility] --> OS Main Hepatology consult service Fellow [...] DAY SURGERY MAIN OR KIDNEY TRANSPLANT W/O UTE NEPHRECTOMY N/A 04/12/2020 Laterality: N/A; Surgeon: LU Palma; Location: [facility] SAME DAY SURGERY MAIN OR [...] (order for outpatient) Please SecureChat or Call ([phone]) for any questions. Await attending attestation for final recommendations. Hank Noel MD Division of Gastroenterology, Hepatology, and Nutrition Clinical Fellow, PGY-5 Pager: [phone] For urgent/stat calls or consults 5pm to 7am, please page the on-call GI fellow on QGenda. [facility]--> Internal Medicine--> Gastroenterology, Hepatology, & Nutrition--> 1st Call Fel Alysia For urgent/stat calls or consults 7am to 5pm during the weekend, please page the on-call GI fellow on QGenda. [facility]--> Internal Medicine--> Gastroenterology, Hepatology, & Nutrition--> All Hep & East Wknd Cons Fel Day For follow up questions regarding this patient 7am to 5pm during the weekday, contact the Hepatology consults fellow or CARLOS A on QGenda. [facility]--> Internal Medicine--> Gastroenterology, Hepatology, & Nutrition--> [...] for outpatient) Michael Estrada MD, MSc [facility] Work Phone: 1(948) 487-521102-17-2024 Plan of care note* Plan of Care - Arelis Mera MD - 01/16/2024 7:27 AM EST Internal Medicine Daily Progress Note Patient: George Styles, 1970, [id number] Physician: Arelis Mera MD, PGY3, Pager #[phone], TM1 service Assessment/Plan: George Styles is a 53 y.o. 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 Acute Hypoxic Respiratory Insufficiency AGRCIA, Bilateral JENSEN, R Pleural Effusion c/f Acute [...] home amlodipine 5mg CAD: non-obstructive CAD on [facility] 2018. - continue home aspirin 81mg daily, [...] on rounds. Signed, Arelis Mera MD [facility]02-17-2024 Nurse Note* Nursing Notes - Izzy Gutierrez RN - 01/16/2024 1:41 AM EST Mr. Styles was admitted to [address] [place] [address]. On admission to R10, from outside facility a dual RN initial assessment of skin condition was performed by Izzy Gutierrez RN and Leroy Singleton RN. Skin Assessment: Skin within defined limits:Yes Jose Score: 20 Wound Vision Resident Medical Officer images obtained: No LDA Added: No Based [...] room closest to nurses station when available. [facility] History and physical note* Timothy Joseph MD - 01/16/2024 1:13 AM EST Images from the original note were not included. Internal Medicine Admission History & Physical Patient: George Styles, 1970, [id number] Physician: Timothy Joseph MD, PGY1, Pager #[phone], TM 1 service Date of face to [...] DAY SURGERY MAIN OR KIDNEY TRANSPLANT W/O UTE NEPHRECTOMY N/A 04/12/2020 Laterality: N/A; Surgeon: LU [...] itraconazole Fax results to: Dr. White - [phone] Transplant Neph - [phone] Gabapentin 400 MG capsule Sig: Take 1 [...] erythema: Skin: No jaundice or rash Neuro: captain's assistant 3-7, 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 Strength grossly [...] home amlodipine 5mg CAD: non-obstructive CAD on [facility] 2018. - continue home aspirin 81mg daily [...] Pierson, Luisa Steven, Renee Freed, Daisha Max Planner/Scheduler: José Miguel Garnica All Txt: 04/13/2020 (Kidney), [...] results found for: CYCLOSPORIN , CYCLOSPORIN2 , [id number] , CYCLORAND No results found for: SIROLIMUS [...] request in chart. Reese Sage MD Pager [phone] [facility]02-17-2024 History and physical note* Timothy Joseph MD - 01/16/2024 1:13 AM EST Images from the original note were not included. Internal Medicine Admission History & Physical Patient: George Styles, 1970, [id number] Physician: Timothy Joseph MD, PGY1, Pager #[phone], TM 1 service Date of face to [...] 04/12/2020 Laterality: N/A; Surgeon: LU Palma; Location: [facility] SAME DAY SURGERY MAIN OR KIDNEY TRANSPLANT W/O UTE NEPHRECTOMY N/A 04/12/2020 Laterality: N/A; Surgeon: LU Palma; Location: [facility] SAME DAY SURGERY MAIN OR [...] itraconazole Fax results to: Dr. White - [phone] Transplant Neph - [phone] Gabapentin 400 MG capsule Sig: Take 1 [...] erythema: Skin: No jaundice or rash Neuro: captain's assistant 3-7, 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 Strength grossly [...] home amlodipine 5mg CAD: non-obstructive CAD on [facility] 2018. 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 Mr. Stlyes was initially admitted to the hospital on 01/16/2024 for an initial diagnosis of Pleural effusion on right [J90]. Transplant Physician: Morgan Harris, Erma Roe, Fidelina Pierson, Luisa Steven, Renee Freed, Daisha Max Planner/Scheduler: José Miguel Garnica All Txt: 04/13/2020 (Kidney), [...] results found for: CYCLOSPORIN , CYCLOSPORIN2 , [id number] , CYCLORAND No results found for: SIROLIMUS [...] request in chart. Reese Sage MD Pager [phone] documented in this encounterCommunity [facility] Medical Center02-13-2024 History of Present illness Narrative* [...] Prograf 0.2 MG Contact Info: Specialty ([place]) [phone] Jakob [phone] [facility] [phone] David [phone] Bedside Delivery ([facility]) [phone] * Anne Choudhury - 01/12/2024 3:09 PM EST [facility] RX OUTREACH ADVANCED: Call Information: Date and Time of Contact: 01/25/2024 10:23 AM Method of Contact: By Phone Contact Type: Prescriptions Contactor: [facility] OP Contactee: Patient Contact Outcome: Left message (prograf myco) Contact Info: Specialty ([place]) [phone] [facility] [phone] [facility] [phone] David [phone] Bedside Delivery ([facility]) [phone] documented in this encounterCommunity Regional Medical Center02-13-2024 History of Present illness Narrative* [...] Prograf 0.2 MG Contact Info: Specialty ([place]) [phone] [facility] [phone] [facility] [phone] David [phone] Bedside Delivery ([facility]) [phone] * Anne Choudhury - 01/12/2024 3:09 PM EST [facility] RX OUTREACH ADVANCED: Call Information: Date and Time of Contact: 01/25/2024 10:23 AM Method of Contact: By Phone Contact Type: Prescriptions Contactor: [facility] OP Contactee: Patient Contact Outcome: Left message (prograf myco) Contact Info: Specialty ([place]) [phone] [facility] [phone] [facility] [phone] David [phone] Bedside Delivery ([facility]) [phone] * Anne Choudhury - 01/12/2024 3:09 PM EST [facility] RX OUTREACH ADVANCED: Call Information: Date and Time of Contact: 01/27/2024 10:19 AM Method of Contact: By Phone Contact Type: Prescriptions Contactor: [facility] OP Contactee: Patient Contact Outcome: Left message (myco prograf) Contact Info: Specialty ([place]) [phone] [facility] [phone] [facility] [phone] [facility] [phone] Bedside Delivery ([facility]) [phone] documented in this encounterCommunity Regional Medical Center02-13-2024 History of Present illness Narrative* [...] Prograf 0.2 MG Contact Info: Specialty ([place]) [phone] [facility] [phone] [facility] [phone] David [phone] Bedside Delivery ([facility]) [phone] * Anne Choudhury - 01/12/2024 3:09 PM EST [facility] RX OUTREACH ADVANCED: Call Information: Date and Time of Contact: 01/25/2024 10:23 AM Method of Contact: By Phone Contact Type: Prescriptions Contactor: [facility] OP Contactee: Patient Contact Outcome: Left message (prograf myco) Contact Info: Specialty ([place]) [phone] [facility] [phone] [facility] [phone] David [phone] Bedside Delivery ([facility]) [phone] * Anne Choudhury - 01/12/2024 3:09 PM EST [facility] RX OUTREACH ADVANCED: Call Information: Date and Time of Contact: 01/27/2024 10:19 AM Method of Contact: By Phone Contact Type: Prescriptions Contactor: [facility] OP Contactee: Patient Contact Outcome: Left message (myco prograf) Contact Info: Specialty ([place]) [phone] [facility] [phone] [facility] [phone] David [phone] Bedside Delivery ([facility]) [phone] * Andressa Gutiérrez - 01/12/2024 3:09 PM EST [facility] RX OUTREACH ADVANCED: Call Information: Date and Time of Contact: 02/01/2024 3:22 PM Contact Type: Prescriptions Contactor: [facility] OP Contactee: Patient Contact Outcome: Left message Shipping/Pickup: Medication Name: Mycophenolate 360mg and Prograf 0.2mg Pack Contact Info: Specialty ([place]) [phone] [facility] [phone] [facility] [phone] David [phone] Bedside Delivery ([facility]) [phone] documented in this encounterCommunity Regional Medical Center02-07-2024 History of Present illness Narrative* [...] him to [facility] neurology but it is out of network [...] pt to see neurologist in [facility] Immunocompromised ([facility] Hypertension ([facility]) No change in meds Check echo Relevant Orders Echocardiogram 2D complete Bilateral lower extremity edema Relevant Orders Echocardiogram 2D complete Shortness of breath Check ECHO Relevant Orders Echocardiogram 2D complete Other Visit Diagnoses 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 Patient was recommended to avoid dehydration, add Miralax 17gm PO Qday and titrate up to twice or three times daily if needed. [facility] Work Phone: 1(442) 335-975011-07-2023 History of Present illness Narrative* Vladislav Dali [...] Prograf 0.2 MG Contact Info: Specialty ([place]) [phone] [facility] [phone] [facility] [phone] David [phone] Bedside Delivery ([facility]) [phone] * Gabbi Rajput - 10/06/2023 9:30 AM EST [facility] RX OUTREACH ADVANCED: Call Information: Date and Time of Contact: 10/23/2023 2:00 PM Method of Contact: By Phone Contact Type: Prescriptions Contactor: [facility] OP Contactee: Patient Contact Outcome: Left message and Call back later Shipping/Pickup: Medication Name: Mycophenolate 360mg and Prograf 0.2mg Contact Info: Specialty ([place]) [phone] Jakob [phone] [facility] [phone] David [phone] Bedside Delivery ([facility]) [phone] documented in this encounterU [facility] Miscellaneous Notes* Nursing Notes - Cheyanne Mcdonough [...] oxygen during the night. pt will pick pulling machine tender his oxygen from [employer], 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 This RN [...] seen ambulating in the velazquez with RN ORTHOPEDIC. Patient was mildly short of breath on [...] Lying O2 Sat (%) 92 % MD Klely notified of patient's temp & HR 114. * Nursing Notes - Tati Charles RN - 09/04/2023 3:30 AM EDT Messaged Mainor Loomis, via [employer] secure chat, Temp 100.8. His tylenol order [...] short period of time. 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 Episode of [...] 7:30 PM EDT Message Mainor Loomis, via [employer] secure chat, Good evening, just an FYI, pt's HR went up to 138 and spo2 was 88% on 4L NC. Bumped him up to 5L NC, spo2 is now 93%, HR came back down to 104 right now. Got an EKG, Sinus Tach. Temp 99.5, day shiftRN went ahead and gave his prn Tylenol. Tati Charles RN * Medical Student - oBny Waters - 09/02/2023 2:50 PM EDT Pulmonary/Critical [...] short period of time. 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 This morning, [...] 8:[address] Loera here also (senior software quality engineer) * Nursing Notes - Mary Case RN [...] 08/29/2023 10:49 PM EDT Sent a secure SeatKarma[employer] chat to Rosi LUZ concerning patient's temp [...] EDT Mr. Styles was admitted to [address] [place] [address]. On admission to R10, from home a [...] station when available. documented in this encounterU [facility] History of Present illness Narrative* BENJY Syed - 09/11/2023 2:30 PM EDT Provided follow-up emotional and spiritual support. Patient shared about rosemary of discharge and looking forward to seeing family Negative Cleaner provided: - Supportive presence - Active listening - Validation of feelings/emotions Patient encouraged to request a bat boy/girl as needed. Chaplains are available in-house 24 hours a day and 7 days a week. For urgent matters in [facility], please page [phone]. If the request is not urgent, please enter a consult. Consults are responded to within 24 hours. Senior Staff Negative Cleaner Angie Singh Mdiv, [facility] Kirk [phone] [email or web address] 22/06 On-call [place]: [phone] 22/06 Pager ,[facility], and Brock Debbie David Pager [phone] 09/11/23 1139 Clinical Encounter Type Visited With Patient Visit Type Follow-up Pastoral Time Spent 15 min Referral Other (See Comment) (rounding) Spiritual Assessment Spiritual Observation Spirituality helpful Emotional Observation Coping well Hope Observation Specific hope focus Support Observation By Family Interventions Provided Active listening;Supportive presence Facilitated Verbalization of feelings Explored Expectations Nascar Driver Education Nascar Driver Service Available Yes Educated Patient Plan of [...] patient on 09/11/2023. Dimitrios Gurrola RPh,PharmD Specialty ([place]) [phone] [facility] [phone] [facility] Bedside Delivery [phone] [facility] [phone] [facility] Bedside Delivery [phone] David [phone] David Bedside Delivery [phone] [place] [phone] [place] [phone] * Evan Kelly MD - 09/10/2023 4:09 PM EDT Internal Medicine Daily Progress Note Patient: George Styles, 1970, [id number] Physician: Evan Kelly MD, PGY-1, TM1 service Subjective/Interval History: Patient continues to require oxygen overnight for desaturations. With insurance limitations, only accepting agency to provide home oxygen backed out. After calling them to discuss, Lynn stated she would be willing to have patient drive to their facility to pick pulling machine tender supplies, however they close at 5pm. 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 - continue home aspirin 81mg daily, [...] 5.05 (H) 11/19/2018 Reese Sage MD, MADISONN Driver Trainee of Clinical Medicine [facility] [facility] * Lora Lawrence RN [...] [employer]erred [employer] [address] [address] [phone] Internal Comment last updated by Lroa Lawrence RN 09/10/2023 1334 Correct contact information: [facility] [address] [place] [address] school athletic director- you do not need to call at discharge, I already notified the company. Addendum 1522 [facility] notified this CM they are out of patient's insurance area and will not be able to service this patient at time of discharge. Provider notified. Addendum 2428 Dr Kelly called [facility] spoke to Lynn and she said they are willing to accept patient if the patient would drive to the [place] office and pick pulling machine tender the supplies. 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 Medication additions/changes: Lipitor on hold with itraconazole Items for clinic follow up: - Lipid follow up with atorvastatin on hold - Itraconazole level and, if needed, a dose adjustment Name: Matt Kramer RPh,PharmD Phone: [phone] Date/Time: 09/10/2023 11:33 AM * Lora Lawrence RN - 09/10/2023 11:08 AM EDT This CM sent referral via F[employer] for O2 concentrator to 4 agencies Start date today Timer set for [facility]30 [facility] [employer] Addendum 1332 One accepting company reserved in [facility] [address] [place] [address] Lora Colón RN, MSN, CCM, CMCN Clinical Environmental Attorney- R10 Transplant #[phone] * RHIANNON Birmingham - 09/09/2023 3:18 PM EDT NUTRITION FOLLOW-UP Nutrition Plan of Care: 1. Continue current diet order. 2. No oral supplements warranted at this time. 3. Monitor for significant weight changes. Monitor GI, skin integrity. 4. Monitor and encourage po intakes with goal of average po being 75-100%. 5. mail carrier technician to follow. Met with patient today [...] time. Will continue to monitor. RHIANNON BirminghamR Pager:[phone] * Evan White DO - 09/09/2023 12:28 [...] sign off. Please Epic message or page [phone] with questions. 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 - continue home aspirin 81mg daily, [...] to follow. Please Epic message or page [phone] with questions. 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 - continue home aspirin 81mg daily, [...] 5.05 (H) 11/19/2018 Reese Sage MD, SERA Driver Trainee of Clinical Medicine [facility] * Ann Marie Haskins [...] Epic message or page [phone] with questions. Ann Marie Haskins MD PGY-4, [...] he continues to improve. Please message via [employer] secure chat or page with any questions or concerns. Evan White DO Driver Trainee Division of Infectious Disease * Evan White [...] to follow. Please Epic message or page [phone] with questions. Evan White DO Transplant Infectious Diseases * Crow Diaz MD - 09/06/2023 1:02 PM EDT Images from the original note were not included. Pulmonary/Critical Care Medicine Daily Progress Note Reason for Consultation: bronch for infectious workup Requesting Physician: Dr. aSge CURRENT HOSPITALIZATION: Admit Date: 08/28/2023 [facility] Hospital LOS: 9 days Impression 1. [...] and interpreted reviewed the radiographic data in [email or web address] [email or web address]. 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 - continue home aspirin 81mg daily, [...] 5.05 (H) 11/19/2018 Reese Sage MD, FASN Driver Trainee of Clinical Medicine [facility] * Crow Diaz MD - 09/05/2023 4:33 PM EDT Images from the original note were not included. Pulmonary/Critical Care Medicine Daily Progress Note Reason for Consultation: bronch for infectious workup Requesting Physician: Dr. Sage CURRENT HOSPITALIZATION: Admit Date: 08/28/2023 [facility] Hospital LOS: 8 days Impression [...] and interpreted reviewed the radiographic data in Athlete [email or web address]. * Fredi Mcfarlane OT - 09/05/2023 2:50 [...] Assessment: Transfer Assessment: Sit to Stand Transfer [place] Level: Sit->Stand: independent Skilled Intervention/Details: Sit->Stand: x1 from EOB, x1 from toilet Stand to Sit Transfer [place] Level: Stand->Sit: independent Skilled Intervention/Details: Stand->Sit: x1 to toilet, x1 to EOB Functional Mobility: Functional Mobility [place] Level: Functional Mobility/Gait: independent Ambulation Distance (Feet): [...] Intact Mobility Assessment: Supine to Sit Mobility [place] Level: Supine->Sit: modified independence Bed Features/Set-up: Supine->Sit: Head of bed elevated Sit to Supine Mobility [place] Level: Sit->Supine: not tested Balance: Sitting Balance [...] environment. Transfer Assessment: Sit to Stand Transfer [place] Level: Sit->Stand: independent Skilled Intervention/Details: Sit->Stand: From EOB x 2 without difficulty. Stand to Sit Transfer [place] Level: Stand->Sit: independent Assistive Device: Stand->Sit: armed chair Skilled Rationale: Verbal cues, Positioning Gait/Functional Mobility: Gait Assessment [place] Level: Gait: stand-by assist Assistive Device: Gait: rollator Ambulation Distance (Feet): 400 Gait Deviations Identified: decreased grace, decreased gait speed Gait Skilled Rationale: verbal, upright posture, increase step length, increase foot clearance Skilled Intervention/Details - Gait: Reasonable foot clearnce without loss of balance but endorsingdyspnea as 6-7/10. 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 - continue home aspirin 81mg daily, [...] 5.05 (H) 11/19/2018 Reese Sage MD, SERA Driver Trainee of Clinical Medicine [facility] * Evan White, - [...] to follow. Please Epic message or page [phone] with questions. Evan White DO Transplant Infectious Diseases * Evan Kelly MD - 09/04/2023 1:20 PM EDT Images from the original note were not included. 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 Please Epic message or page [phone] with questions. 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 - continue home aspirin 81mg daily, [...] 5.05 (H) 11/19/2018 Reese Sage MD, SERA Driver Trainee of Clinical Medicine [facility] * Lora Lawrence RN [...] Lora Colón RN, MSN, CCM, CMCN Clinical Environmental Attorney- R10 Transplant #[phone] * BENJY Syed - 09/02/2023 11:17 AM EDT Made introductory visit with patient. Provided emotional and spiritual support. Patient shared about: - Source of Rosemary: Camping/Fishing/Family - Spirituality/Mormon Affiliation: raised Church - Family Support/history - Experience with illness/hospital course - Hopes for healing/future Negative Cleaner provided: - Supportive presence - Active listening - Validation of feelings/emotions - Pledged prayer Patient encouraged to request a bat boy/girl as needed. Chaplains are available in-house 24 hours a day and 7 days a week. For urgent matters in [facility], please page [phone]. If the request is not urgent, please enter a consult. Consults are responded to within 24 hours. Senior Staff Negative Cleanerdakota Singh Mdiv, [facility] [place] [phone] [email or web address] 22/06 On-call [place]: [phone] 22/06 Pager ,[facility], and Brock Hernandez Pager [phone] 09/02/23 1112 Clinical Encounter Type Visited With Patient Visit Type Introduction Pastoral Time Spent 15 min Referral Other (See Comment) (rounding) Spiritual Assessment Spiritual Observation Spirituality helpful Emotional Observation Coping well Hope Observation Specific hope focus Support Observation By Family Interventions Provided Active listening;Supportive presence Facilitated Verbalization of feelings Explored Expectations Nascar Driver Education Nascar Driver Service Available Yes Educated Patient Outcomes Patient [...] goal of average po being 100%. 5. mail carrier technician to follow. George Styles is a 53 y.o. 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 His post- transplant course was noteworthy for nephrostomy tube (05/17/2022-09/10/2022) due to concern for ureteral stone. He presents as a direct admission for fever, cough, for infectious workup. Pt unavailable and information obtained via chart review Washer Assembler Screening Pt's appetite is good. Pt with [...] time. Will continue to monitor. 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 - continue home aspirin 81mg daily, [...] as outlined above. Reese Sage MD Pager [phone] * Heidy Chatman - 09/01/2023 2:00 PM [...] further questions. Name: Heidy Chatman Phone #: [phone] Date/Time: 09/01/2023 2:01 PM Time Spent: 15 minutes Associated attestation - Matt Kramer RPh,PharmD - 09/01/2023 2:28 PM EDT Department of Pharmacy Admission Medication Reconciliation Note Patient: George Styles Room/Bed: 1062/A I have reviewed the home medication list with the Prefinish Operator. All changes to the home medication list have been updated in IHIS. Updated FRAME AND SCRAP CRUSHER Med List: Prior to Admission Medications Prescriptions [...] questions. Name: Matt Kramer RPh,PharmD Phone #: [phone] Date/Time: 09/01/2023 2:28 PM * Evan White [...] continue tofollow. Please Epic message or page [phone] with questions. 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 - continue home aspirin 81mg daily, [...] 5.05 (H) 11/19/2018 Reese Sage MD, SERA Driver Trainee of Clinical Medicine [facility] * Kasandra Hurt [...] Yes Name and Contact information: Gian Styles ([phone]) Reviewed and Updated in Demographics? : Yes [...] patient on Anticoagulation? : No [id number] [place] [address] - [address] [address] Pediatrician Active Practice Does the patient or national account representative express financial concerns? : No Employed?: Disabled Coping/Stress Concerns about patient s coping and stress?: No Concerns about patient s caregiver s coping and stress?: No Values and Beliefs Cultural or cheondoism practices that may impact discharge planning and/or [...] Plan 1. Identified self and role as Environmental Attorney. 2. Confirmed and updated demographics and treatment team. 3. Environmental Attorney will continue to follow with medical team/pt for any other additional discharge needs. Kasandra DON RN CM *Please note I am float CM and work Thursday and Thursday every other week. Please call [phone] for assist in my absence. 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 - continue home aspirin 81mg daily, atorvastatin 20mg daily Gout: continue home allopurinol 200mg daily BPH: continue home flomax 0.4mg daily DVT PPX: SQH Code Status: Full Code Disposition: Pending clinical course. Anticipate eventual discharge home. Discussed with team and attending, Reese Sage MD, on rounds. Signed, Laurel Serrano MD, PhD documented in this [facility]Community [facility] Hospital Discharge instructions* Discharge Instructions* [...] sleep doctor. You will need to pick pulling machine tender the oxygen concentrator when you leave the [...] focus on healthy foods. documented in this encounterCommunity [facility] Medical Center10-03-2023 Consult note* Izzy Loera MD - 09/01/2023 12:26 PM EDTAssociated Order(s): IP CONSULT TO PULMONOLOGY Pulmonary Medicine Inpatient Consultation Reason for Consultation: bronch for infectious workup Requesting Physician: Dr. Sage Pulmonary Attending Physician: Dr. Diaz CURRENT HOSPITALIZATION: Admit Date: 08/28/2023 [facility] Hospital LOS: 4 days Impression/Recommendations: [...] Recommendations: - Plan to bronch tomorrow morning. NPO@AR, order placed - would repeat HIV, last [...] short period of time. 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 Other histories as documented in the [...] LLL superior segment Associated attestation - Crow Diza MD - 09/01/2023 8:10 PM EDT PULMONARY [...] ill contacts. [place] [facility] [place] [facility] REVIEW OF SYSTEMS A complete [...] GUIDANCE 05/17/2022 Surgeon: Enzo Heart DO; Location: [facility] INTERVENTIONAL RADIOLOGY (VIR) LIVER TRANSPLANT, ORTHOTOPIC N/A 04/12/2020 Laterality: N/A; Surgeon: LU Palma; Location: [facility] SAME DAY SURGERY MAIN OR KIDNEY TRANSPLANT W/O UTE NEPHRECTOMY N/A 04/12/2020 Laterality: N/A; Surgeon: LU Palma; Location: [facility] SAME DAY SURGERY MAIN OR [...] Alamo MD I can be reached via Athlete Builder secure message (preferred) or Pager #[phone] documented in this encounterCommunity Regional Medical Center09-29-2023 History and physical note* Aric Turner MD - 08/28/2023 6:14 PM EDT Images from the original note were not included. Internal Medicine Admission History & Physical Patient: George Styles, 1970, [id number] Physician: Aric Turner MD, PGY1, Pager #[phone], service Date of face to face patient [...] So he went to see the transplant wire galvanizer. He was found elevated Cr and asked [...] Appetite is ok now. Urine is about 6414-9540 ml every day. Stool every day, no [...] GUIDANCE 05/17/2022 Surgeon: Enzo Heart DO; Location: [facility] INTERVENTIONAL RADIOLOGY (VIR) LIVER TRANSPLANT, ORTHOTOPIC N/A 04/12/2020 Laterality: N/A; Surgeon: LU Palma; Location: [facility] SAME DAY SURGERY MAIN OR KIDNEY TRANSPLANT W/O UTE NEPHRECTOMY N/A 04/12/2020 Laterality: N/A; Surgeon: LU Palma; Location: 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 - continue aspirin 81mg daily, atorvastatin [...] Pierson, Luisa Steven, Renee Freed, Daisha Max Planner/Scheduler: José Miguel Garnica All Txt: 04/13/2020 (Kidney), [...] results found for: CYCLOSPORIN , CYCLOSPORIN2 , [id number] , CYCLORAND No results found for: SIROLIMUS [...] Rest as above. Reese Sage MD Pager [phone] documented in this [facility]09-29-2023 History of Present illness Narrative* Rochelle Ribeiro RN - 08/28/2023 2:15 PM EDT Images from the original note were not included. 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 Planner/Scheduler: Anayeli Burt Date of Liver Transplant: 04/13/2020 (Kidney), 04/13/2020 (Liver) 3 years 4 months post Liver/Kidney Transplant Primary Disease: Hypertensive Nephrosclerosis Transplant Plate Cleaner: Erma Roe/ Daisha Max Primary Care physician: [...] aspirin, and faMOTIdine None Specified Preferred Lab: [facility] Change in lab frequency / new [...] 12 hours. ADDITIONAL INFORMATION: None Specified, [id number] [place] [address] - [address] [facility] [address] [facility] [address] [facility] [address] [id number] [place] [address] [address] [facility] [facility] [address] [address] [facility] [address], [address] [facility] [address] ROS and SCREEN: Chest Pain: negative Cough: [...] EDT I saw George Styles at the [facility] on 08/28/2023. Patient is a 53 y.o. 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 INTERVENTIONAL RADIOLOGY (VIR) LIVER TRANSPLANT, ORTHOTOPIC N/A 04/12/2020 Laterality: N/A; Surgeon: LU Palma; Location: [facility] SAME DAY SURGERY MAIN OR KIDNEY TRANSPLANT W/O UTE NEPHRECTOMY N/A 04/12/2020 Laterality: N/A; Surgeon: LU Palma; Location: [facility] SAME DAY SURGERY MAIN OR [...] you have any questions. Steve Munoz MD machine whitener Division of Nephrology [facility] Instructions* Patient Instructions* Mainor Busby RN - 08/28/2023 2:15 PM EDT - Admission for fevers, cough, and night sweats [facility] History of Present illness Narrative* Andressa Gutiérrez [...] No Mailing/Pickup Date: 08/25/2023 Shipping Address: [address] [place] [address] [address] Contact Info: Specialty ([place]) [phone] Jakob [phone] [facility] [phone] David [phone] Bedside Delivery ([facility]) [phone] documented in this encounterCommunity Regional Medical Center07-14-2023 History of Present illness Narrative* Rebeca Gutierrez, DEEP-ANALOG IC DESIGN ARCHITECT - 06/12/2023 3:00 PM EDT Images from the original note were not included. George Styles is a 53 y.o. 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 The HLA mismatch was 1A,2B, 1DR. No longer follows with a local wire galvanizer. History of Present Illness: Since George was [...] and lab results. Rebeca Gutierrez MSN, RN, LEAK GANG SUPERVISOR-BC, CCTN Certified Nurse Practitioner Comprehensive Transplant Center [facility] [address] [facility] [address] documented in this encounterCommunity Regional Medical Center07-14-2023 Instructions* Patient Instructions* JEANNA Hess - 06/12/2023 3:00 PM EDT No change in immunosuppression. documented in this encounterOS[facility] History of Present illness Narrative* Anne Choudhury - 06/10/2023 3:16 PM EDT [facility]: Call Information: Method of Contact: By Phone Contact Type: Prescriptions Contactor: [facility] Contactee: Patient Contact Outcome: Left message Shipping/Pickup: Medication Name: Mycophenolate sod 180 mg Contact Info: Specialty ([place]) [phone] [facility] [phone] [facility] [phone] David [phone] Bedside Delivery ([facility]) [phone] * Negra Burks - 06/10/2023 3:16 PM EDT [facility] OUTREACH ADVANC[facility]: Call Information: Date and Time of Contact: 06/12/2023 9:43 AM Method of Contact: By Phone Contact Type: Prescriptions Contactor: [facility] OP Contactee: Patient Contact Outcome: Left message and Follow-up Shipping/Pickup: Medicare B Refill?: No Medication Name: Myco 180 Contact Info: Specialty ([place]) [phone] [facility] [phone] [facility] [phone] David [phone] Bedside Delivery ([facility]) [phone] * Mikaela Pierre - 06/10/2023 3:16 PM EDT [facility]REACH ADVANC[facility]: Call Information: Date and Time of Contact: 06/12/2023 10:08 AM Method of Contact: By Phone Contact Type: Prescriptions Contactor: [facility] OP Contactee: Patient Shipping/Pickup: Medicare B Refill?: No Medication Name: Mycophenolate 180mg DR Delivery Method: Air Delivery Location: Home Signature Required: No Mailing/Pickup Date: 06/17/2023 Shipping Address: [address] [place] [address] Contact Info: Specialty ([place]) [phone] [facility] [phone] [facility] [phone] David [phone] Bedside Delivery ([facility]) [phone] documented in this encounterCommunity Regional Medical Center04-13-2023 History of Present illness Narrative* [...] Required: No Mailing/Pickup Date: 03/16/2023 Shipping Address: [address] [place] [address] Contact Info: Specialty ([place]) [phone] [facility] [phone] [facility] [phone] David [phone] Bedside Delivery ([facility]) [phone] * Andressa Gutiérrez - 03/12/2023 10:34 AM [...] Date: 03/19/2023 Shipping Address: [address] [facility] 179 Contact Info: Specialty ([place]) [phone] [facility] [phone] [facility] [phone] David [phone] Bedside Delivery ([facility]) [phone] documented in this encounterCommunity Regional Medical Center04-11-2023 History of Present illness Narrative* Vladislav Dali - 03/10/2023 11:58 AM EDT [facility] OUTREACH ADVANCED: Call Information: Date and Time of Contact: 03/10/2023 12:00 PM Method of Contact: By Phone Contact Type: Prescriptions Contactor: [facility] Contactee: Patient Contact Outcome: Left message and Call back later Shipping/Pickup: Medication Name: Mycophenolate ; Tacrolimus Contact Info: Specialty ([place]) [phone] [facility] [phone] [facility] [phone] David [phone] Bedside Delivery ([facility]) [phone] documented in this encounterOSU [facility]04-11-2023 History of Present illness Narrative* Vladislav Mcnally - 03/10/2023 11:58 AM EDT [facility] OUTREACH ADVANCED: Call Information: Date and Time of Contact: 03/10/2023 12:00 PM Method of Contact: By Phone Contact Type: Prescriptions Contactor: [facility] Contactee: Patient Contact Outcome: Left message and Call back later Shipping/Pickup: Medication Name: Mycophenolate ; Tacrolimus Contact Info: Specialty ([place]) [phone] [facility] [phone] [facility] [phone] David [phone] Bedside Delivery ([facility]) [phone] * Anne Choudhury - 03/10/2023 11:58 AM EDT [facility] OUTREACH ADVANCED: Call Information: Date and Time of Contact: 03/12/2023 10:32 AM Method of Contact: By Phone Contact Type: Prescriptions Contactor: [facility] Contactee: Patient Contact Outcome: Left message Shipping/Pickup: Medication Name: Mycophenolate sodium (MYFORTIC) 180 MG Tab tacrolimus 0.5 mg Contact Info: Specialty ([place]) [phone] [facility] [phone] [facility] [phone] David [phone] Bedside Delivery ([facility]) [phone] documented in this encounterOSU Uk Healthcare02-17-2023 History of Present illness Narrative* Daisha Max DO - 01/16/2023 9:40 AM EST -Referring Provider for today's consult: Daisha Max DO -Primary Care Provider: Zuly Bruno History of Present Illness George Styles is a 52 y.o. male who presents to the [facility] Transplant Hepatology Clinic today for [...] 04/12/2020 Laterality: N/A; Surgeon: LU Palma; Location: [facility] SAME DAY SURGERY MAIN OR KIDNEY TRANSPLANT W/O UTE NEPHRECTOMY N/A 04/12/2020 Laterality: N/A; Surgeon: LU Palma; Location: [facility] SAME DAY SURGERY MAIN OR [...] 0.3 12/29/2022 Explant Pathology Pathologic Diagnosis A. [place] liver, orthotopic liver transplant resection (1458 gram): [...] A/P with IV contrast (06/27/2022): 1. Both washoe kidneys are atrophic with improvement in right-sided [...] frequent nighttime urination, etc). Daisha Max DO Driver Trainee Gastroenterology, Hepatology and Nutrition [facility] Pager: [phone] * José Miguel Garnica RN - 01/16/2023 9:40 AM EST Images from the original note were not included. 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 Planner/Scheduler: Anayeli Burt Date of Liver Transplant: 04/13/2020 (Kidney), 04/13/2020 (Liver) 2 years, 8 months post Liver/KidneyTransplant Primary Disease: Hypertensive Nephrosclerosis Transplant Plate Cleaner: Steve Munoz Primary Care physician: Zuly Bruno [...] levels: No results found for: CYCLOSPORIN, CYCLOSPORIN2, EGLULEURN2BQ, CYCLORAND No components found for: CYCLOSPORINE, 2HR [...] hours. ADDITIONAL INFORMATION: None Specified [id number] [place] [address] - [address] [facility] [address] [facility] [phone] [facility] [address] [facility] [place] [address] [id number] [place] [address] [address] [facility] [address] [place] [address] [facility] [address] [place], [place] [address], [facility] [address] [place] [address] ROS and SCREEN: Chest Pain: negative Cough: negative SOB: negative Abd Pain: negative Nausea: negative Vomiting: negative Diarrhea: negative Constipation: negative Dysuria: negative Edema: negative Tremors: negative Headaches: negative Wound issues: negative Alcohol consumption: no Cigarette smoking, smokeless tobacco or vaping/e-cigarette use: no Marijuana (any form), CBD oil or street drug use: no QUESTIONS OR CONCERNS TO ADDRESS WITH PHYSICIAN: documented in this encounterCommunity Regional Medical Center02-17-2023 Instructions* Patient Instructions* José Miguel Garnica RN - 01/16/2023 9:40 AM EST - Labs Every 2 months - Discuss night time urination with your PCP - Schedule Colonoscopy through PCP - Follow up in 1 year documented in this encounterCommunity Regional Medical Center10-12-2022 History of Present illness Narrative* Ryan Yepez MD - 09/10/2022 10:10 AM EDT UROLOGY CLINIC NOTE Reason for Appointment: BPH with LUTS HPI: Patient is a 52 yo male with a DDRT to the [facility] in 2019. Nephrostomy tube placed [...] and no hydronephrosis. Some reflux up the washoe right ureter but good drainage of both transplant and washoe ureter to the bladder. Nephrostomy tube was [...] transplant, orthotopic (N/A, 04/12/2020); kidney transplant w/o washoe nephrecto my (N/A, 04/12/2020); and placement nephrostomy [...] Negative for , diarrhea, constipation Genitourinary: See ANVIK Neurological: Negative for headaches. Lymph/Heme: Negative for [...] x 4, Normal strength. No edema. Skin: [place], warm, and dry. There are no rashes [...] and no hydronephrosis. Some reflux up the washoe right ureter but good drainage of both transplant and washoe ureter to the bladder. Nephrostomy tube was [...] Ryan Yepez MD 09/10/22 documented in this encounterCommunity Regional Medical Center08-08-2022 History of Present illness Narrative* [...] assisted off the table and escorted to nurse emergency room where they made a follow up. * [...] to have transplant ureter with anastomosis to washoe right ureter. Nephrostogram without filling defects and no hydronephrosis. Some reflux up the washoe right ureter but good drainage of both transplant and washoe ureter to the bladder. Nephrostomy tube was removed without issue. Patient does have some sensation of incomplete bladder emptying and occasional sensation in his right flank. PVR today was 33cc. Will re-evaluate urinary symptoms at next appointment. --continue Flomax --RTC in one month flow flow/PVR/IPSS Patient to call with any additional questions or concerns. Ryan Yepez MD 07/07/22 documented in this encounterU Uk Healthcare07-29-2022 History of Present illness Narrative* Ryan Yepez [...] transplant, orthotopic (N/A, 04/12/2020); kidney transplant w/o washoe nephrecto my (N/A, 04/12/2020); and placement nephrostomy [...] Negative for , diarrhea, constipation Genitourinary: See ANVIK Neurological: Negative for headaches. Lymph/Heme: Negative for [...] x 4, Normal strength. No edema. Skin: [place], warm, and dry. There are no rashes [...] a DDRT to the [facility] in 2019. Nephrostomy tube placed [...] bag if needed. documented in this encounterOSU Uk Healthcare07-29-2022 History and physical note* JEANNA Padilla - 06/27/2022 10:40 AM EDT Patient was evaluated in clinic as a nurse visit. Please refer to Rena Brewster's note. [facility] Work Phone: [phone] 436-847307-29-2022 History and physical note* JEANNA Padilla - 06/27/2022 10:40 AM EDT Patient was evaluated in clinic as a nurse visit. Please refer to Rena Brewster's note. documented in this encounterOSU Uk Healthcare07-29-2022 History of Present illness Narrative* Rena Brewster RN - 06/27/2022 10:40 AM EDT TEACHING REGARDING TX NEPH COMPLETED-NEPH TUBE SITE DRY AND INTACT-CLEAR YELLOW URINE IN THE BAG-INSTRUCTED ABOUT FLUSHING, BAG CHANGING ETC. NUMEROUS QUESTIONS ASKED AND ANSWERED-VERBALIZED UNDERSTANDING documented in this encounterOSU Uk Healthcare07-20-2022 NoteEXAMINATION: CT ABD/PELVIS WO CON HISTORY: UNSPECIFIED [...] mass or enlargement. KIDNEYS: Marked atrophy of washoe kidneys. Transplant right pelvic kidney with percutaneous [...] Electronically authenticated by: MÓNICA JIMENEZ Date: 2022-06-18 13:53[facility]07-14-2022 Instructions* Patient Instructions* Anayeli Christianson RN - 06/12/2022 3:21 PM EDT Do not take apart/disrupt nephrostomy tube system. Call Interventional Radiology and/or on-call transplant nurse [phone] for instruction if need to flush (clot or decreased flow). Take cipro 500mg, one tablet, twice per day for 14 days documented in this encounterOSU Uk Healthcare07-14-2022 History of Present illness Narrative* Roxanne Grimes RN - 06/12/2022 2:15 PM EDT Images from the original note were not included. 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 Planner/Scheduler: Anayeli Burt Date of Liver Transplant: 04/13/2020 (Kidney), 04/13/2020 (Liver) 2 year, 1 months post Liver/Kidney Transplant Primary Disease: Hypertensive Nephrosclerosis Transplant Plate Cleaner: Steve Munoz Primary Care physician: Zuly Bruno [...] obstructing kidney stone in renal graft at [facility]. Percutaneous Neph Tube placed * Anayeli Christianson RN - 06/12/2022 2:15 PM EDT Images from the original note were not included. Nursing Assessment In Clinic (see Clinic Prep Sheet for additional information) Patient is accompanied to clinic today by: self Did patient require a wheelchair or medical transport for appointment: no Did hotel front office manager confirm current address and insurance information [...] PREFERRED LAB AND PHARMACY: None Specified [facility] [place] [phone] - [address] [address] [facility] [address] [facility] [facility] [address] [id number] [place] [address] - [address] [facility] [address] [facility] [address] [facility] [address], [place] [address] [facility] [address] ROS and SCREEN: Chest Pain: negative Cough: [...] EDT I saw George Styles at the [facility] on 06/12/2022. Patient is a 52 y.o. 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 INTERVENTIONAL RADIOLOGY (VIR) LIVER TRANSPLANT, ORTHOTOPIC N/A 04/12/2020 Laterality: N/A; Surgeon: LU Palma; Location: [facility] SAME DAY SURGERY MAIN OR KIDNEY TRANSPLANT W/O UTE NEPHRECTOMY N/A 04/12/2020 Laterality: N/A; Surgeon: LU Palma; Location: [facility] SAME DAY SURGERY MAIN OR [...] you have any questions. Steve Munoz MD machine whitener Division of Nephrology [facility] documented in this encounterOSWvumedicine Barnesville [facility]07-06-2022 Instructions* Patient Instructions* TATI GROVE - 06/04/2022 11:04 AM EDT Thank you for joining us for your neph tube follow up. We recommend routine exchange every 8-10 weeks. Please reach out at [phone] when it is time to set your next routine exchange. Thank you IR clinic documented in this encounterOSU Uk Healthcare07-06-2022 History of Present illness Narrative* Litzy Brice [...] schedule exchange.Verbalized understanding. documented in this encounterOSU Uk Healthcare06-21-2022 Note* Nursing Notes - Leon Cook RN [...] of his discharge. Leon Cook RN [facility]06-21-2022 Miscellaneous Notes* Nursing Notes - Leon Cook [...] provide teaching before his discharge Leon GALLARDO #[id number] Leon Cook RN * Plan of Care [...] - 05/19/2022 12:44 PM EDT Discussed with [facility] re: possible urine culture performed at [...] with questions. Evan Byrd MD Urology, PGY-2 #[id number] * Certification - Nishant Gamez MD - [...] 05/16/2022 2:29 AM EDT On admission to [facility], a dual RN initial assessment of skin condition was performed by Kallie Lorenzana RN and Sheri Arguelles RN. Skin Assessment: WDL Jose Score: 20 LDA Added:N Kallie Lorenzana RN documented in this encounterOSWvumedicine Barnesville Hospital06-21-2022 Note* Plan of Care - Leon [...] discharge/transition of care. Outcome: Adequate for Discharge [facility]06-21-2022 Note* Nursing Notes - Leon Cook RN - 05/20/2022 2:01 PM EDT Tung Dillard MD R10 Rm 1006 Jensen George Please let's have a clear order on how the nephrostomy site dressing need to be changed when the patient goes home so we provide teaching before his discharge Leon RN #[id number] Leon Cook, RN [facility]06-21-2022 History of Present illness Narrative* Yanira [...] cost is $0. Yanira Her RPh,PharmD Specialty ([place]) [phone] [facility] [phone] [facility] [phone] David [phone] [place] [phone] Bedside Delivery ([facility]) [phone] * Maxi Pringle MD - 05/19/2022 12:32 PM EDT Attending I saw George Styles at the [facility] on 05/19/2022. I saw and independently [...] 650 mg 650 mg Oral Q6H PRN Evna Bennett MD 650 mg at 05/18/22 1739 [...] mg 400 mg Oral Q6H PRN Evan Bnenett MD heparin injection 5,000 Units 5,000 Units [...] Daily Progress Note Patient: George Styles, 1970, [id number] Physician: Liam Julian MD, PGY-3, Pager #[phone], [id number] Subjective/Interval History: No acute events overnight. Passed [...] Saldana MD Division of Hospital Medicine Pager [phone] * Maxi Pringle MD - 05/18/2022 7:39 AM EDT Attending I saw George Feliz Jensen at the [facility] on 05/18/2022. I saw and independently [...] Daily Progress Note Patient: George Styles, 1970, [id number] Physician: Nishant Gamez MD, PGY2, Pager #[phone], [email or web address] Subjective/Interval History: Nephrostomy tube placed yesterday with [...] needs to have stablized for this sari national account representative. Daya (Nunu) Jeff Saldana MD Division of Hospital Medicine Pager [phone] * Nishant Gamez MD - 05/17/2022 8:04 AM EDT Internal Medicine Daily Progress Note Patient: George Styles, 1970, [id number] Physician: Nishant Gamez MD, PGY2, Pager #[phone], [email or web address] Subjective/Interval History: Worsening creatinine this morning with [...] Saldana MD Division of Hospital Medicine Pager [phone] * Maxi Pringle MD - 05/17/2022 7:07 AM EDT Attending I saw George Styles at the [facility] on 05/17/2022. I saw and independently [...] review of chart and discussion withtreatment team, Environmental Attorney has not identified needs at this time. [...] EDT Introduced self and role of the bat boy/girl to patient. Provided emotional and spiritual support and the patient responded by sharing their experience and discussed the following: - Spirituality/Mormon Affiliation: As a kid attended Church yarsani but not a strong identity now - Family support - pt's brothers live close by Negative Cleaner provided: - Supportive presence - Active listening - Validation of feelings/emotions Patient encouraged to request a bat boy/girl as needed. Chaplains are available in-house 24 hours a day and 7 days a week. For urgent matters in [facility], please page [phone]. If the request is not urgent, please enter a consult. Consults are responded to within 24 hours. Angie Singh Mdiv, B[facility] Burn [facility] and Transplant [place] [address] Negative Cleaner [facility] Negative Cleaner [place] [phone] [email or web address] [email or web address] [facility] Pager [phone] 22/06 Pager ,[facility], and [place] 1500 22/06 David Pager [phone] 05/16/22 1120 Clinical Encounter Type Visited With Patient Visit Type Introduction Pastoral Time Spent 15 min Referral Other (See Comment) (Rounding) Spiritual Assessment Spiritual Observation Spirituality helpful;Identifies as (see comment) (Hoahaoism) Emotional Observation Coping well Hope Observation Hopeful and accepting Support Observation By Family Interventions Provided Active listening;Supportive presence Facilitated Verbalization of feelings;Sharing of life story;Identifying support system Explored Expectations Nascar Driver Education Nascar Driver Service Available Yes Educated Patient Outcomes Patient Outcomes Articulated purpose/meaning Plan of Care Continue Visiting PRN * Nishant Gamez MD - 05/16/2022 8:27 AM EDT Internal Medicine Daily Progress Note Patient: George Styles, 1970, [id number] Physician: Nishant Gamez MD, PGY2, Pager #[phone], [id number] Subjective/Interval History: Overall feeling okay this morning. 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 [...] Supervision Transfer Assessment: Sit to Stand Transfer [place] Level: Sit->Stand: independent Skilled Intervention/Details: Sit->Stand: x1 from EOB Stand to Sit Transfer [place] Level: Stand->Sit: supervision Assistive Device: Stand->Sit: armed chair Skilled Rationale: Controlled descent for sitting, Verbal cues Gait/Functional Mobility: Gait Assessment [place] Level: Gait: supervision Assistive Device: Gait: gait belt Gait Distance (feet): 200 Gait Deviations Identified: decreased grace, decreased step length, decreased stride length Gait Skilled Rationale: verbal, upright posture Skilled Intervention/Details - Gait: Pt with steady gait without LOB or complaints of SOB. Stairs: Stairs Assessment [place] Level: Stair Negotiation: stand-by assist Assistive Device: [...] reported no concerns with discharging home with lincoln support. 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 IADL History IADLs: independent Primary Language: [place]ian Home Management Skills: independent Meal Prep Responsibility: [...] Assessment: Transfer Assessment: Sit to Stand Transfer [place] Level: Sit->Stand: independent Skilled Rationale: Cues for increased safety Skilled Intervention/Details: Sit->Stand: x1 EOB Stand to Sit Transfer [place] Level: Stand->Sit: supervision Assistive Device: Stand->Sit: gait belt, armed chair Skilled Rationale: Verbal cues, Controlled descent for sitting, Cues for increased safety Skilled Intervention/Details: Stand->Sit: cues for hand placement and controlled descent Functional Mobility: Functional Mobility [place] Level: Functional Mobility/Gait: stand-by assist Assistive Device: [...] DAY SURGERY MAIN OR KIDNEY TRANSPLANT W/O UTE NEPHRECTOMY N/A 04/12/2020 Laterality: N/A; Surgeon: LU [...] by: Mel Norman OT, OTR/L License #: [id number] pager # [phone] 05/20/2022 Upon discontinuation of Acute Care Occupational Therapy Services or patient discharge from the hospital this note represents the current Occupational Therapy Discharge Summary. documented in this encounterOSU Uk Healthcare06-21-2022 Hospital course Narrative* Nishant Gamez MD - [...] recent hospital stay at [facility]. As you may know, George [...] Saldana MD Division of Hospital Medicine p: [phone] f: [phone] CONSULTS DURING ADMISSION: IP CONSULT TO SURGERY - UROLOGY IP CONSULT TO NEPHROLOGY - TRANSPLANT (MEDICINE) IP CONSULT TO INTERVENTIONAL RADIOLOGY IP CONSULT TO PHYSICAL THERAPY IP CONSULT TO OCCUPATIONAL THERAPY IP CONSULT TO PHARMACY BEDSIDE DISCHARGE MED DELIVERY IMAGING / PROCEDURES / RESULTS: Should you require further information or copies of results or reports please contact Medical Information Management @ [phone] LABS AT TIME OF DISCHARGE: Lab Results [...] Bruno [address] [place] / [place] [address] MEDICATIONS: Discharge Orders CT ABDOMEN/PELVIS WITHOUT CONTRAST [...] CAPS Generic drug: docusate Follow-up: Zuly Bruno, ANALOG IC DESIGN ARCHITECT [address] [facility] [phone] Schedule an appointment as soon as possible for a visit Follow-up appointment with your, primary care physician within 7-10 days, after discharge. [address] [facility] [phone] Follow up The department of urology will call you with a follow up appointment. LU Ovalle [address] 11[address] Floor [facility] [address] Follow up Please make a follow up appointment with Dr. Munoz's office. Upcoming Appointments (up to five)-Some appointments for Medical Center outpatient clinics or diagnostic testing locations are not displayed below Provider Department Dept Phone 06/04/2022 10:40 AM IR [facility] Interventional Radiology Clinic [phone] 06/27/2022 1:30 PM [facility] Department of Radiology Arrive at: Arrive to First Floor Registration Desk [phone] 06/27/2022 2:40 PM Ryan Yepez [facility] Arrive at: Arrive to 2nd Floor, Registration [id number] 10/31/2022 1:00 PM Steve Munoz [facility] Transplant [facility] [phone] 01/16/2023 9:40 AM TRANSPLANT HEPATOLOGY , [facility] Transplant [facility] [phone] Associated attestation - Daya Saldana MD - [...] MD (Peggy) Division of Hospital Medicine Pager [phone] documented in this encounterOSU Uk Healthcare06-21-2022 Hospital Discharge instructions* Discharge Instr - Wound [...] be changed by Interventional Radiology. Please call [phone] to schedule this appointment and with any questions or concerns you may have regarding the nephrostomy tube. If you have questions or concerns, please call Interventional Radiology at SOMEONE FROM INTERVENTIONAL RADIOLOGY WILL CALL YOU FOR A FOLLOW UP IN THE IR CLINIC Giulia Cavazos RN Nurse Coordinator Interventional Radiology Interventional Radiology Outpatient scheduling [facility]* Plan of Care - Josey [...] Ongoing Goal: Interdisciplinary Rounds/Family Conf Outcome: Ongoing [facility]06-20-2022 Note* Plan of Care - Liam Julian MD - 05/19/2022 12:44 PM EDT Discussed with [facility] re: possible urine culture performed at their facility. However, based on urinalysis completed at that time, which was only notable for hematuria, culture was not performed and sample no longer feasible for culture. Liam Julian MD Internal Medicine/Pediatrics, PGY-3 [facility]06-19-2022 Note* Nursing Notes - Carolyn Isaac RN - 05/18/2022 8:03 PM EDT 2002: IHIS message sent to Dr Justyn Wen, regarding patient passing a small kidney stone, about the size of pea. MD notified. Stone left in strainer in pt bathroom. 0500: IHIS message sent to Dr Justyn Wen, regarding pt BP 174/77. [facility]06-19-2022 Note* Plan of Care - [...] outcomes by discharge/transition of care. Outcome: Ongoing [facility]06-19-2022 Note* Plan of Care - [...] becomes hyponatremic, NS should instead be used. [facility] Work Phone: 1(125) 446-597406-19-2022 Note* Nursing Notes - Carolyn Isaac RN - 05/18/2022 4:37 AM EDT IHIS chat sent to Dr rTay Quintana, regarding pt BP 190/86. Pt complaining of pain at site of neph tube. PRN pain medication given per order parameters. Pt denies any other symptoms at this time. notified and aware. [facility]06-18-2022 Note* Nursing Notes - Danitza Thompson RN - 05/17/2022 12:28 PM EDT At 0900, I rounded with Dr. Gamez and Dr. Saldana. At that time I checked Mr. Styles's vital signs. His pulse oximeter was low and he was tachypneic. Verbal order at bedside to put nasal cannula on starting at 2liters oxygen and to provide incentive spirometer. [facility]06-18-2022 Note* Nursing Notes - Meka Rincon RN - 05/17/2022 10:52 AM EDT Interventional Radiology procedure completed with IR Attending Dr. Heart / Dr. Le of percutaneous right nephrostomy tube placement transplant kidney 10.2 Fr Moya acosta Pt tolerated procedure with moderate sedation local numbing agent . Transported to inpatient after phase I recovery. Post procedure orders in place. [facility]* Nursing Notes - Danitza Thompson RN - 05/16/2022 4:57 PM EDT At 1530, I text parisd Kaitlynn Gomez MD that patient has only had 25ml urine output in matias this afternoon. [facility]* Plan of Care - Evan [...] with questions. Evan Byrd MD Urology, PGY-2 #[id number] [facility] Work Phone: 1(978) 241-977906-17-2022 Note* Certification - Nishant Gamez MD - 05/16/2022 11:20 AM EDT I certify that this patient requires inpatient services at this time. I anticipate the expected length of stay will include at least two midnights. Inpatient services are due to the following medicalconcerns Obstructive kidney stone. Plans for post hospitalization care will be discharge to home. [facility] Consult note* Maria De Jesus Pollock MD, PhD - 05/16/2022 9:37 AM EDTAssociated Order(s): IP CONSULT TO NEPHROLOGY - TRANSPLANT (MEDICINE) I saw George Styles at the [facility] on 05/16/2022. Reason for Consultation: kidney [...] where he was given flomax and senthome. [place] better but noticed more pain and decreased [...] best assessment and recommendations. Maxi Pringle MD [facility] Work Phone: [phone]) 393-789906-17-2022 Consult note* Maria De Jesus Pollock MD, PhD - 05/16/2022 9:37 AM EDTAssociated Order(s): IP CONSULT TO NEPHROLOGY - TRANSPLANT (MEDICINE) I saw George Styles at the [facility] on 05/16/2022. Reason for Consultation: kidney [...] where he was given flomax and senthome. [place] better but noticed more pain and decreased [...] states he went to his local ED [place] and he was put on Flomax and he did improve. Pt states last night he was unable to void with severe right sided abd pain. Pt states nausea and no vomiting or fevers. Pt states he went back to [place] ED at 0100 and they placed a [...] orthotopic (N/A, 04/12/2020); and kidney transplant w/o washoe nephr ectomy (N/A, 04/12/2020). 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 The washoe distal right ureter is decompressed beyond this [...] with surgical history for renal graft and washoe right urinary drainage, as a discrete ureteroneocystostomy is not identified, and the graft may be draining via a ureteroureterostomy. Urology consultation recommended. 3. 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 Normal [...] PGY-3, Department of Urologic Surgery Pager #: [phone] Associated attestation - Ryan Yepez MD - [...] --may continue flomax [facility]* Plan of Care - Kallie Lorenzana [...] Trust Relationship/Rapport: care explained choices provided [facility]* Nursing Notes - Kallie Lorenzana RN - 05/16/2022 2:29 AM EDT On admission to R10, a dual RN initial assessment of skin condition was performed by Kallie Lorenzana RN and Sheri Arguelles RN. Skin Assessment: WDL Jose Score: 20 LDA Added:N Kallie Lorenzana RN [facility]06-16-2022 Emergency department Note* Karlie Bean RN - 05/15/2022 11:14 PM EDT Report given to Kallie RN at 10 [facility]06-16-2022 Emergency department Note* Karlie Bean [...] 04/12/2020 Laterality: N/A; Surgeon: LU Palma; Location: [facility] SAME DAY SURGERY MAIN OR KIDNEY TRANSPLANT W/O UTE NEPHRECTOMY N/A 04/12/2020 Laterality: N/A; Surgeon: LU Palma; Location: [facility] SAME DAY SURGERY MAIN OR [...] 05/15/2022 2:15 PM EDT Pt arrives from [facility] with kidney stones. Pt states he had right lower abd pain and right flank pain with blood in his urine since Thursday. Pt states he went to his local ED [place] and[place] was put on Flomax and he did improve. Pt states last night he was unable to void with severe right sided abd pain. Pt states nausea and no vomiting or fevers. Pt states he went back to [place] EDat 0100 and they placed a matias and CT scan completed and multiple kidney stones noted. [facility] and kidney [facility] 03/2020. [facility] History and physical note* Evan Bennett MD - 05/15/2022 9:18 PM EDT Internal Medicine Admission History & Physical Patient: George Styles, 1970, [id number] Physician: Evan Bennett MD, PGY1, Pager #[phone], GM 4 service Date of face to [...] 04/12/2020 Laterality: N/A; Surgeon: LU Palma; Location: [facility] SAME DAY SURGERY MAIN OR KIDNEY TRANSPLANT W/O UTE NEPHRECTOMY N/A 04/12/2020 Laterality: N/A; Surgeon: LU Palma; Location: [facility] SAME DAY SURGERY MAIN OR [...] erythema: Skin: No jaundice or rash Neuro: captain's assistant 3-7, 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 Strength grossly [...] dilation of the calyces may represent narrowing/partial [id number] ofthe ureter and mild hydronephrosis or sequela [...] MD Division of Hospital Medicine [phone] [facility] Work Phone: 1(468) 467-208806-16-2022 History and physical note* Evan Bennett MD - 05/15/2022 9:18 PM EDT Internal Medicine Admission History & Physical Patient: George Styles, 1970, [id number] Physician: Evan Bennett MD, PGY1, Pager #[phone], GM 4 service Date of face to [...] 04/12/2020 Laterality: N/A; Surgeon: LU Palma; Location: [facility] SAME DAY SURGERY MAIN OR KIDNEY TRANSPLANT W/O UTE NEPHRECTOMY N/A 04/12/2020 Laterality: N/A; Surgeon: LU Palma; Location: [facility] SAME DAY SURGERY MAIN OR [...] erythema: Skin: No jaundice or rash Neuro: captain's assistant 3-7, 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 Strength grossly [...] dilation of the calyces may represent narrowing/partial [id number] ofthe ureter and mild hydronephrosis or sequela [...] FAYE - IS dosing per neph Fred Pricne MD Division of Hospital Medicine [phone] [facility] Emergency department Note* Nisha Gardiner RN - 05/15/2022 7:02 PM EDT Bladder scan with Dr Villatoro at bedside, 14ml noted [facility] Consult note* Stephanie Tomas MD - 05/15/2022 [...] states he went to his local ED [place] and he was put on Flomax and he did improve. Pt states last night he was unable to void with severe right sided abd pain. Pt states nausea and no vomiting or fevers. Pt states he went back to [place] ED at 0100 and they placed a [...] orthotopic (N/A, 04/12/2020); and kidney transplant w/o washoe nephr ectomy (N/A, 04/12/2020). 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 The washoe distal right ureter is decompressed beyond this [...] with surgical history for renal graft and washoe right urinary drainage, as a discrete ureteroneocystostomy is not identified, and the graft may be draining via a ureteroureterostomy. Urology consultation recommended. 3. 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 Normal [...] PGY-3, Department of Urologic Surgery Pager #: [phone] Associated attestation - Ryan Yepez MD - [...] future before surgical intervention --may continue flomax [facility] Work Phone: 1(390) 550-669806-16-2022 Emergency department Note* Nisha Gardiner RN - 05/15/2022 6:[address] Schneider concerning no urine output via matias catheter. [facility]06-16-2022 Physician Emergency department Note* Gian [...] plan of care. Gian Villatoro MD 05/15/222003 [facility] Work Phone: 1(375) 327-448206-16-2022 Emergency department Note* Nisha Gardiner RN - 05/15/2022 5:[address] Schneider made aware of only 30 ml urine via matias since arrival to room. [facility]06-16-2022 Physician Emergency department Note* Matt [...] DAY SURGERY MAIN OR KIDNEY TRANSPLANT W/O UTE NEPHRECTOMY N/A 04/12/2020 Laterality: N/A; Surgeon: LU [...] any incorrections. Matt Schneider MD Resident 05/15/222030 [facility] Work Phone: [phone]) 221-478906-16-2022 Emergency department Note* Lynn Rutherford RN - 05/15/2022 2:15 PM EDT Pt arrives from [facility] with kidney stones. Pt states he had right lower abd pain and right flank pain with blood in his urine since Thursday. Pt states he went to his local ED [place] and[place] was put on Flomax and he did improve. Pt states last night he was unable to void with severe right sided abd pain. Pt states nausea and no vomiting or fevers. Pt states he went back to [place] EDat 0100 and they placed a matias and CT scan completed and multiple kidney stones noted. [facility] and kidney transplant in 03/2020. [facility]04-15-2022 History of Present illness Narrative* [...] Required: No Mailing/Pickup Date: 03/17/2022 Shipping Address: [address] [place] [address] 179 Contact Info: Specialty ([place]) [phone] [facility] [phone] [facility] [phone] [place] [phone] Bedside Delivery ([facility]) [phone] documented in this [facility]21 History of Present illness Narrative* Angel Carpio [facility],PharmD - 06/14/2021 11:57 AM EDT [facility] [...] 05/16/22 Goal Progress: Satisfactory Contact Info: Specialty ([place]) [phone] [facility] [phone] [facility] [phone] [place] [phone] Bedside Delivery ([facility]) [phone] * Mallika Henderson - 06/14/2021 11:57 AM [...] Location: Home Signature Required: Yes Shipping Address: [address] [place] [address] Contact Info: Specialty ([place]) [phone] [facility] [phone] [facility] [phone] [place] [phone] Bedside Delivery ([facility]) [phone] documented in this encounterCommunity [facility] Center[facility] + Plan note Future Appointments Appointment Date:11/22/2024 09:00:00 AM Scheduled Provider:JONATHAN Almodovar APRN, [place] X Location:[facility] Appointment Type:URO Office Visit [facility] evaluation + Plan note Future Appointments Appointment Date:03/09/2025 10:20:00 AM Scheduled Provider:JONATHAN Almodovar APRN, [place] X Location:[facility] Appointment Type:URO Office Visit [facility] Evaluation note* Diagnosis FAYE (acute kidney injury)- Primary Acute kidney failure, unspecified Hydronephrosis due to obstruction of ureteral orifice Hydronephrosis due to obstruction of ureteral orifice FAYE (acute kidney injury) Acute kidney failure, unspecified [facility] Diagnosis Follow-up exam- Primary Unspecified follow-up examination [facility] Diagnosis Immunosuppressed status- Primary Unspecified disorder of immune mechanism Kidney replaced by transplant Liver replaced by transplant Abnormal blood chemistry Other abnormal blood chemistry High risk medication use Encounter for long-term (current) use of other medications Aftercare following organ transplant Liver transplant recipient [facility]* Diagnosis Attention to nephrostomy- Primary [facility] Diagnosis Other hydronephrosis- Primary [facility] Diagnosis FAYE (acute kidney injury) Acute kidney failure, unspecified [facility]* Diagnosis Other hydronephrosis- Primary -donor kidney transplant recipient Kidney replaced by transplant [facility] Diagnosis Other hydronephrosis [facility] Diagnosis 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) Encounter for screening for malignant neoplasm of prostate Special screening for malignant neoplasm of prostate [facility] Diagnosis Abnormal blood chemistry- Primary Other abnormal blood chemistry Liver transplant recipient Kidney replaced by transplant Immunosuppressed status Unspecified disorder of immune mechanism Aftercare following organ transplant [facility] Diagnosis Kidney replaced by transplant- Primary [facility] in [facility]* Diagnosis Immunosuppressed status- Primary Unspecified disorder of immune mechanism Kidney replaced by transplant Aftercare following organ transplant High risk medication use Encounter for long-term (current) use of other medications Other general symptoms and signs Abnormal blood chemistry Other abnormal blood chemistry Hypertension secondary to other renal disorders [facility] encounter [facility]* Diagnosis Histoplasmosis- Primary [...] Immunocompromised (CMS/HCC) Unspecified immunity deficiency Primary hypertension ([facility]/HCC) Unspecified essential hypertension Shortness of breath [facility]* Diagnosis Pleural [...] specified pre-operative examination [facility] encounter [facility]* Diagnosis Heart failure, diastolic, acute- Primary Acute diastolic heart failure [facility] encounter [facility]* Diagnosis Liver lesion- Primary Other specified disorders of liver Liver transplant recipient High risk medication use Encounter for long-term (current) use of other medications Therapeutic drug monitoring Encounter for therapeutic drug monitoring Immunocompromised Unspecified immunity deficiency [facility] encounter [facility]* Diagnosis Kidney replaced by transplant- Primary [facility] encounter [facility]* Diagnosis DARLENE (obstructive sleep [...] of urinary stream documented in this encounter [facility]* Diagnosis DARLENE (obstructive sleep [...] of urinary stream documented in this encounter [facility] note* Diagnosis Primary hypertension (CMS/HCC) Unspecified essential hypertension documented in this encounter [facility] note* Diagnosis DARLENE (obstructive sleep [...] Calculus of kidney documented in this encounter [facility] note* Diagnosis Primary hypertension (CMS/HCC)- [...] of urinary stream documented in this encounter [facility] Healthcare[facility] note* Diagnosis DARLENE (obstructive sleep [...] kidney Other polyneuropathy documented in this encounter [facility]* Diagnosis DARLENE (obstructive [...] replaced by transplant documented in this encounter [facility] Healthcare[facility] note* Diagnosis DARLENE (obstructive sleep [...] acid level- Primary documented in this encounter [facility]* Diagnosis DARLENE (obstructive [...] replaced by transplant [facility] Narrative No data available for this section [facility] Hospital Discharge instructions Additional Instructions [...] times daily if needed. - Office number [phone]. [facility] Work Phone: Progress note No data available for this section [facility] reason for referral (narrative)* Consultation (Routine) - New Request Specialty Diagnoses / Procedures Referred By Deni edwards Referred To Contact Interventional Radiology Diagnoses Hydronephrosis due to obstruction of ureteral orifice Daya Saldana MD [address] [place] [address] Referral ID Status Reason Start Date Expiration Date V isits Requested Visits Authorized [id number] New Request 05/18/2022 06/12/2023 1 1 * Radiology (Emergency) - New Request Specialty Diagnoses / Procedures Referred By Deni edwards Referred To Contact Procedures US RENAL TRANSPLANT SCAN Daya Saldana MD [address] [place] [address] Referral ID Status Reason Start Date Expiration Date V isits Requested Visits Authorized [id number] New Request 05/16/2022 06/10/2023 1 1 * Consultation (Routine) - New Request Specialty Diagnoses / Procedures Referred By Deni edwards Referred To Contact Urology Diagnoses FAYE (acute kidney injury) Ryan Yepez MD [address] [facility] [address] [place] [address] Referral ID Status Reason Start Date Expiration Date V isits Requested Visits Authorized [id number] New Request 05/16/2022 06/10/2023 1 1 * MRI/CAT Scan (Routine) - New Request Specialty Diagnoses / Procedures Referred By Contac t Referred To Contact Diagnoses FAYE (acute kidney injury) Procedures CT ABDOMEN/PELVIS WITHOUT CONTRAST CHG CT SCAN,ABDOMENT AND PELVIS,W/O CONTRAST Ryan Yepez MD [address] [place] [address] Referral ID Status Reason Start Date Expiration Date V isits Requested Visits Authorized [id number] New Request 05/16/2022 06/10/2023 1 1 * (Routine) - Pending Review Specialty Diagnoses / Procedures Referred By Contac t Referred To Contact Procedures PLATELET MONITORING PER PROTOCOL Daya Saldana MD [address] [place] [address] Referral ID Status Reason Start Date Expiration Date V isits Requested Visits Authorized [id number] Pending Review 05/15/2022 06/09/2023 1 1 * (Routine) - Pending Review Specialty Diagnoses / Procedures Referred By Contac t Referred To Contact Procedures DVT/VTE RISK ASSESSMENT Daya Saldana MD [address] [place] [address] Referral ID Status Reason Start Date Expiration Date V isits Requested Visits Authorized [id number] Pending Review 05/15/2022 06/09/2023 1 1 * (Routine) Specialty Diagnoses / Procedures Referred By Contac t Referred To Contact Evan Bennett MD [address] [place] [address] Referral ID Status Reason Start Date Expiration Date Visits Re quested Visits Authorized * (Routine) Specialty Diagnoses / Procedures Referred By Deni edwards Referred To Contact Evan Bennett MD [address] [place] [address] Referral ID Status Reason Start Date Expiration Date Visits Re quested Visits Authorized [facility] for referral (narrative)* Consultation (Routine) - New Request Specialty Diagnoses / Procedures Referred By Deni edwards Referred To Contact Sleep Medicine Diagnoses Hypoxia Reese Sage MD [address] [place] [address] Referral ID Status Reason Start Date Expiration Date V isits Requested Visits Authorized [id number] New Request 09/10/2023 10/04/2024 1 1 * MRI/CAT Scan (Routine) - New Request Specialty Diagnoses / Procedures Referred By Deni edwards Referred To Contact Diagnoses Histoplasmosis Procedures CT CHEST WITHOUT CONTRAST CHG DIAGNOSTIC COMPUTED TOMOGRAPHY THORAX W/O JAZMINERST Reese Sage MD [address] [place] [address] Referral ID Status Reason Start Date Expiration Date V isits Requested Visits Authorized [id number] New Request 09/10/2023 10/04/2024 1 1 * Radiology (Routine) - New Request Specialty Diagnoses / Procedures Referred By Deni edwards Referred To Contact Procedures US RENAL TRANSPLANT SCAN Steve Munoz MBBS [address] [place] [address] Referral ID Status Reason Start Date Expiration Date V isits Requested Visits Authorized [id number] New Request 08/29/2023 09/22/2024 1 1 * (Routine) - New Request Specialty Diagnoses / Procedures Referred By Contac t Referred To Contact Procedures PLATELET MONITORING PER PROTOCOL Steve Munoz MBBS [address] [place] [address] Referral ID Status Reason Start Date Expiration Date V isits Requested Visits Authorized [id number] New Request 08/28/2023 09/21/2024 1 1 * (Routine) - New Request Specialty Diagnoses / Procedures Referred By Contac t Referred To Contact Procedures DVT/VTE RISK ASSESSMENT Steve Munoz MBBS [address], [place] [address] Referral ID Status Reason Start Date Expiration Date V isits Requested Visits Authorized [id number] New Request 08/28/2023 09/21/2024 1 1 [facility] for referral (narrative)* Consultation (Routine) - Pending Review Specialty Diagnoses / Procedures Referred By Contac t Referred To Contact Urology Diagnoses Decreased urine stream Procedures PA OFFICE/OUTPATIENT NEW HIGH MDM 60 MINUTES Zuly Bruno NP [address] [place] [address] Trace Gannon MD [address] [place] [address] Referral ID Status Reason Start Date Expiration Date Visits Requested Visits Authorized [id number] Pending Review Specialty Services Required 08/23/2024 02/19/2025 1 1 * Consultation (Routine) - Pending Review Specialty Diagnoses / Procedures Referred By Contac t Referred To Contact Gastroenterology Diagnoses Gastroesophageal reflux disease, unspecified whether esophagitis present Abdominal pain, generalized Other constipation Procedures PA OFFICE/OUTPATIENT NEW HIGH MDM 60 MINUTES Zuly Bruno NP [address] [place] [address] Alaina Mclaughlin DO [address] [facility]. [address] [place] [address] Referral ID Status Reason Start Date Expiration Date Visits Requested Visits Authorized [id number] Pending Review Specialty Services Required 08/23/2024 02/19/2025 1 1 * (Routine) - Authorized Specialty Diagnoses / Procedures Referred By Contac t Referred To Contact Radiology Diagnoses Left carotid bruit Mixed hyperlipidemia (CMS/HCC) Procedures Vascular US carotid artery duplex bilateral Zuly Bruno NP [address] [place] [address] Referral ID Status Reason Start Date Expiration Date V isits Requested Visits Authorized [id number] Authorized 08/23/2024 02/19/2025 1 1 [facility] Instructions * Patient Instructions - Christin Elizabeth APRN-ANALOG IC DESIGN ARCHITECT - 10/19/2018 9:21 AM EST You should take an extra dose of the lactulose as needed so that you are having 3-4 bowel movementsdaily. You should start the chemical dependency counseling as soon as possible. If you have questions, call the transplant protective services social worker Fidelina Pierson. in this encounter* Patient Instructions - Sophie Cary RN - 10/12/2018 11:09 AM EST You have been seen in the pre-transplant evaluation clinic by Dr. Restrepo and Sophie Cary. Sophie Cary is your pre-inventory coordinator she can be reached at [phone] at any time for questions during the pre-transplant process. Your evaluation is complete pendin. Abdominal ultrasound. 2. 6 minute walk test. 3. Cardiology evaluation. Additionally, your drawer upfitter will recommend testing to screen for coronary artery disease. This will be scheduled for you after your cardiology visit. 4. Your coordinator will be requesting record from your last dental visit, colonoscopy and EGD. 5. Please work to complete social work recommendations. Your protective services social worker will be contacting you to follow up on your progress. 6. You have also been referred for a kidney transplant. An appointment will be scheduled for you sari evaluated in the kidney transplant clinic after you have satisfied requirements dictated by yourJoome company. Once your testing is complete, we [...] ___ Other Name MRN * Christin Elizabeth, LEAK GANG SUPERVISOR-ANALOG IC DESIGN ARCHITECT - 10/19/2018 9:00 AM EST Formatting of this note may be different from the original. History of Present Illness: Chief Complaint Patient presents with Follow-up Cirrhosis George Styles is a 48 y.o. male who presents to the [facility] Gastroenterology Clinic today regarding his diagnosis/chief complaint(s) of Cirrhosis secondary to ETOH, with ESRD follows with Dr. Orr. Currently undergoing evaluation for liver/kidney transplant. Has been seen in transplant clinic for eval. Still undergoing pre testing. Diagnosed in April 2018. Last drink was immediately prior to hospital admission in [place] for ACLF. Hospital course notable for ARF [...] kidney transplant evaluation. Pt was AOx3. Transplant Yoke Setter role/function was explained and reviewed. The patient was informed that the results of this assessment will be shared with the referring provider and the transplant team. The patient verbalized understanding of this information. The [facility] psychosocial assessment consent form has been explained to patient and has been signed. Pt is completing this evaluation with brother (David) in the Outpatient setting. NANCYK educated pt on the benefits of completing/filing advanced directives and resources were offered. Pt identifies with MANDAEISM gnosticism. Pt confirms being a [place] Citizen. Pt.'s primary language is Montserratian. Pt confirms the ability to read,write, and understand [place]serratian. Pt denies potential donors. Donor cards and [...] has valid license, does not regularly drive (ANALOG IC DESIGN ARCHITECT recommends that he not to drive). He [...] etoh cirrohosis April dx in [facility] for thirty days. Pt reports learning [...] as well as referred him to pre inventory coordinator. Pt and support demonstrated moderate understanding [...] Patient's brother David is a self employed web operations lead. Additional support includes his other brother Tyshawn and his Mary live fifteen minutes away. Of note Mary is a inspector structural bonding for a [employer] is available to assist rn ante partum. He confirms being comfortable asking for help. [...] in 2010, he was employed by the [employer]. He has access to SSDI payment (SSDI starts in November) in regards to financial means pre/ post-transplant. Pt confirms (meeting bills currently, ) being able to meet daily needs. Patient's brother asking for additional information on community resources, food stamps and Heap. Refer him to pt.'s dialysis center and the [facility]. Hereports access to Medicaid. Pt. [...] ordered treatment after a DUI charge [facility] in [place], court ordered treatment in 2001 and in [...] by patient from his primary medical provider- [facility] patient was noted as attending an alcohol [...] was provided with local AOD resources, [facility] AOD informational packet. Pt was referred [...] new visit Date of service: 10/12/2018 -Referring industrial garage servicer for today's consult: -Primary Care Provider: Zuly Bruno CC: Chief Complaint Patient presents with Liver Recipient Evaluation History of Present Illness George Styles is a 48 y.o. male who presents to the [facility] liver transplant surgery clinic today [...] progressing rapidly Unknown * Elisa Tiwari, RN ORTHOPEDIC - 10/12/2018 10:00 AM EST Timed up and go 9.9 seconds Professional Employer Consultant Left 52.8 pounds Right 44.9 pounds Waist circ 38.5 inches * Sophie Cary RN - 10/12/2018 10:00 AM EST Formatting of this note may be different from the original. Patient George Styles ([id number]), accompanied by his brother, was seen on [...] any further questions. Sophie GUERINN, RN Liver Planner/Scheduler Etiology: ETOH HCC: No ETOH: Yes Last [...] Yovani Orr MD [address] [address] Status Reason Specialty Diagnoses / Procedures Referred By Contact Referred To Contact New Request Diagnoses Cirrhosis of liver with ascites, unspecified hepatic cirrhosis type Procedures US ABDOMEN RUQ/LIVER/GB Yovani Orr MD [address] [address] Specialty Diagnoses / Procedures Referred By Contac t Referred To Contact Diagnoses FAYE (acute kidney injury) Procedures CT ABDOMEN/PELVIS WITHOUT CONTRAST CHG CT SCAN,ABDOMENT AND PELVIS,W/O CONTRAST Central Scheduling [address] [place] [address] Referral ID Status Reason Start Date Expiration Date V isits Requested Visits Authorized [id number] Pending Review 05/16/2022 06/10/2023 1 1 Specialty Diagnoses / Procedures Referred By Contac t Referred To Contact Diagnoses Other hydronephrosis Procedures FLUORO IMAGING FOR UROLOGY Ryan Yepez MD [address] [facility] [address] [place] [address] Referral ID Status Reason Start Date Expiration Date V isits Requested Visits Authorized [id number] New Request 07/07/2022 08/01/2023 1 1 Specialty Diagnoses / Procedures Referred By Contac t Referred To Contact Procedures DIRECT ADMIT REQUEST Steve Munoz, JOSHBS [address] [place] [address] Referral ID Status Reason Start Date Expiration Date V isits Requested Visits Authorized [id number] New Request 08/28/2023 09/21/2024 1 1 Specialty Diagnoses / Procedures Referred By Contac t Referred To Contact Radiology Diagnoses DARLENE (obstructive sleep apnea) Primary hypertension (CMS/HCC) Bilateral lower extremity edema Shortness of breath Procedures Echocardiogram 2D complete Zuly Bruno, BA [address] [place] [address] Referral ID Status Reason Start Date Expiration Date Visits Requested Visits Authorized [id number] Incomplete Perform Procedure 01/06/2024 07/04/2024 1 1 Specialty Diagnoses / Procedures Referred By Contac t Referred To Contact Procedures US IMAGING REGIONAL ANESTHESIA Kehinde Gutierrez MD [address] [place] [address] Referral ID Status Reason Start Date Expiration Date V isits Requested Visits Authorized [id number] New Request 01/22/2024 02/15/2025 1 1 Specialty Diagnoses / Procedures Referred By Contac t Referred To Contact Cardiovascular Medicine Diagnoses Heart failure, diastolic, acute Kelvin Smith MD, MBBS [address] [place] [address] Referral ID Status Reason Start Date Expiration Date V isits Requested Visits Authorized [id number] New Request 01/20/2024 02/13/2025 1 1 Specialty Diagnoses / Procedures Referred By Contac t Referred To Contact Procedures US ABDOMEN LIVER DOPPLER US ABDOMEN LIVER TRANSPLANT DOPPLER Timothy Joseph MD [address] [facility] [address] [place] [address] Referral ID Status Reason Start Date Expiration Date V isits Requested Visits Authorized [id number] New Request 01/16/2024 02/09/2025 1 1 Specialty Diagnoses / Procedures Referred By Contac t Referred To Contact Procedures DVT/VTE RISK ASSESSMENT Kelvin Smith MD, MBBS [address] [place] [address] Referral ID Status Reason Start Date Expiration Date V isits Requested Visits Authorized [id number] New Request 01/16/2024 02/09/2025 1 1 Specialty Diagnoses / Procedures Referred By Contac t Referred To Contact Procedures PLATELET MONITORING PER PROTOCOL Kelvin Smith MD, MBBS [address] [place], [place] [id number] Referral ID Status Reason Start Date Expiration Date V isits Requested Visits Authorized [id number] New Request 01/16/2024 02/09/2025 1 1 Referral ID Status Reason Start Date Expiration Date V isits Requested Visits Authorized [id number] New Request 01/16/2024 02/09/2025 1 1 Specialty Diagnoses / Procedures Referred By Contac t Referred To Contact Procedures ECG Kelvin Smith MD, MBBS [address] [place], [place] [phone] Referral ID Status Reason Start Date Expiration Date V isits Requested Visits Authorized [id number] New Request 01/16/2024 02/09/2025 1 1 Specialty Diagnoses / Procedures Referred By Contac t Referred To Contact Diagnoses Liver lesion Procedures MRI ABDOMEN WITH AND WITHOUT CONTRAST CHG MRI ABDOMEN W/O & W/CONTRAST MATERIAL Daisha Max, DO [address] [place], [place] [id number] Referral ID Status Reason Start Date Expiration Date V isits Requested Visits Authorized [id number] New Request 06/17/2024 07/12/2025 1 1 Advance Directives No Advanced Directives Records FoundDocuments on File Type Date Recorded Patient Vehicle Upholsterer Expl anation Advance Directives and Living Will Power of Medical/Surgery Registered Nurse Latest Code Status on File Code Status [...] Yovani Orr MD [address] [address] Status Reason Specialty Diagnoses / Procedures Referre d By Contact Referred To Contact Denied Diagnoses Alcoholic cirrhosis, unspecified whether ascites present Pre-transplant evaluation for liver transplant Procedures MRI ABDOMEN WITH CONTRAST PA MRI, ABDOMEN W/CONTRAST Yovani Orr MD [address] [address] Reason Comments Liver Recipient Evaluation Status Reason Specialty Diagnoses / Procedures Referred By Contact Referred To Contact New Request Transplant / Transplant Surgery Procedures PRE NEW PATIENT Yovani Orr MD [address] [address] Alfredito Restrepo MD [address] [place] [address] Reason Comments Reschedule Reason Comments Outside Medical Records Request Reason Comments Social Work Follow-up Reason Comments Kidney Stone Specialty Diagnoses / Procedures Referred By Contac t Referred To Contact Diagnoses Obstructing kidney stone, s/p kidney transplant 2019 Daya Saldana MD [address] [place] [address] [facility] [address] [place] [address] Referral ID Status Reason Start Date Expiration Date Visits Re quested Visits Authorized [id number] 1 1 Reason Comments Follow-up Reason Comments Kidney Recipient Follow-up Liver Recipient Follow-up Reason Comments Consult Reason Comments New Patient Hospital follow up Specialty Diagnoses / Procedures Referred By Contac t Referred To Contact Urology Diagnoses hosp fu with [address] prior Procedures NEW TO DOC/RET PATIENT Zuly Bruno CNP [address] [place] [address] Ryan [facility]pez MD [facility] [address] [place] [address] Referral ID Status Reason Start Date Expiration Date Visits Re quested Visits Authorized [id number] Closed 06/27/2022 07/22/2023 1 1 Specialty Diagnoses / Procedures Referred By Socorroac t Referred To Contact Diagnoses FAYE (acute kidney injury) Procedures CT ABDOMEN/PELVIS WITHOUT CONTRAST CHG CT SCAN,ABDOMENT AND PELVIS,W/O CONTRAST Central Scheduling [address] [place] [address] Referral ID Status Reason Start Date Expiration Date V isits Requested Visits Authorized [id number] Pending Review 05/16/2022 06/10/2023 1 1 Reason Comments Follow-up Specialty Diagnoses / Procedures Referred By Contac t Referred To Contact Urology Diagnoses 1 week fu post NT clamp Procedures RETURN PATIENT Zuly Bruno CNP [address] [place] [address] Ryan Yepez MD [address] [employer] [facility] [address] [place] [address] Referral ID Status Reason Start Date Expiration Date Visits Requested Visits Authorized [id number] Authorized - 07/07/2022 08/01/2023 2 2 Specialty Diagnoses / Procedures Referred By Contac t Referred To Contact Diagnoses Other hydronephrosis Procedures FLUORO IMAGING FOR UROLOGY Ryan Yepez MD [address] [facility] [address] [place] [address] Referral ID Status Reason Start Date Expiration Date V isits Requested Visits Authorized [id number] New Request 07/07/2022 08/01/2023 1 1 Specialty Diagnoses / Procedures Referred By Contac t Referred To Contact Urology Diagnoses 1 week fu post NT clamp Procedures RETURN PATIENT Zuly Bruno, ANALOG IC DESIGN ARCHITECT [address] [place] [address] Ryan Yepez MD [address] [employer] [facility] [address] [place] [address] Referral ID Status Reason Start Date Expiration Date Visits Re quested Visits Authorized [id number] Closed 07/07/2022 08/01/2023 2 2 Reason Comments Liver Recipient Follow-up Reason Comments Kidney Recipient Follow-up Reason Comments Kidney Recipient Follow-up Specialty Diagnoses / Procedures Referred By Contac t Referred To Contact Diagnoses Kidney replaced by transplant Steve Munoz MBBS [address] [place] [address] [facility] [address] [place] [address] Referral ID Status Reason Start Date Expiration Date Visits Re quested Visits Authorized [id number] 1 1 Specialty Diagnoses / Procedures Referred By Contac t Referred To Contact Diagnoses Pleural effusion on right PNEUMONIA- HX LIVER AND KIDNEY TRANSPLANT Reese Sage MD [address] [place] [address] [facility] [address] [place] [address] Referral ID Status Reason Start Date Expiration Date Visits Re quested Visits Authorized [id number] 1 1 Reason Comments New Patient Specialty Diagnoses / Procedures Referred By Deni edwrads Referred To Contact Cardiovascular Medicine Diagnoses Heart failure, diastolic, acute Kelvin Smith MD, MBBS [address] 1[address] [place] [address] Referral ID Status Reason Start Date Expiration Date Visits Requested Visits Authorized [id number] Authorized - 01/20/2024 02/13/2025 5 5 Reason Comments Liver Recipient Follow-up Reason Onset Date Comments Med Refill 10/01/2024 Reason Comments Med Refill Reason Onset Date Comments Med Refill 08/11/2024 Reason Comments Hypertension Reason Onset Date Comments Med Refill 01/05/2025 Reason Onset Date Comments Med Refill 02/01/2025 Reason Comments Osteoporosis NEW REF/DEXA SCAN Specialty Diagnoses / Procedures Referred By Deni edwards Referred To Contact Endocrinology Diagnoses Other osteoporosis without current pathological fracture Liver transplant status Organ transplant Procedures PA OFFICE/OUTPATIENT NEW HIGH MDM 60 MINUTES Zuly Bruno, BA [address] [place] [address] Phone: tel: fax: Tony Hernandez MD [address] [facility] [address] [place] [address] Phone: tel: fax: Referral ID Status Reason Start Date Expiration Date V isits Requested Visits Authorized [id number] Closed Specialty Services Required 01/13/2025 07/12/2025 1 1 (unrecognized sect ion and content) No Status Records FoundNo Status Records FoundNo Status Records FoundNo Status Records FoundNo Status Records FoundNo Status Records FoundNo Status Records FoundNo Status Records Found INFORMATION SOURCE (unrecogn ized section and content) DATE CREATED AUTHOR 01/07/2020 [facility] DATE CREATED AUTHOR AUTHOR'S ORGANIZ ATION 01/27/[address] [facility] DATE CREATED AUTHOR AUTHOR'S ORGANIZ ATION 05/11/2023 [facility] DATE CREATED AUTHOR AUTHOR'S ORGANIZ ATION 06/03/2024 [facility] DATE CREATED AUTHOR AUTHOR'S ORGANIZ ATION 01/05/2025 [facility] DATE CREATED AUTHOR AUTHOR'S ORGANIZ ATION 02/22/2025 Ridge Ernandez [facility] DATE CREATED AUTHOR AUTHOR'S ORGANIZ ATION 02/25/2025 [facility] DATE CREATED AUTHOR AUTHOR'S ORGANIZ ATION 03/01/2025 [facility] EPIC Care Teams (unrecognized sec tion and content) [place] Guide Relationship Specialty Start Date End Date Zuly Bruno CNP PCP - General 07/19/18 Comfort Rivera [facility] [address] [place] [address] Pharmacist Pharmacist 05/16/20 Angel Carpio [facility],PharmD Pharmacist Pharmacist 05/16/20 Te Leigh RP,PharmD Pharmacist Pharmacist 01/09/21 [place] Guide Relationship Specialty Start Date End Date Zuly Bruno CNP PCP - General 07/19/18 Comfort Rivera [facility] [address] [place] [address] Pharmacist Pharmacist 05/16/20 Angel Carpio RP,PharmD Pharmacist Pharmacist 05/16/20 Te Leigh RP,PharmD Pharmacist Pharmacist 01/09/21 [place] Guide Relationship Specialty Start Date End Date Zuly Bruno CNP PCP - General 07/19/18 [place] Guide Relationship Specialty Start Date End Date Zuly Bruno CNP PCP - General 07/19/18 Park Guide Relationship Specialty Start Date End Date Zuly Bruno CNP PCP - General 07/19/18 Park Guide Relationship Specialty Start Date End Date Zuly Bruno CNP PCP - General 07/19/18 Park Guide Relationship Specialty Start Date End Date Zuly Bruno CNP PCP - General 07/19/18 Park Guide Relationship Specialty Start Date End Date Zuly Bruno CNP PCP - General 07/19/18 Park Guide Relationship Specialty Start Date End Date Zuly Bruno CNP PCP - General 07/19/18 [place] Guide Relationship Specialty Start Date End Date Zuly Bruno CNP PCP - General 07/19/18 Park Guide Relationship Specialty Start Date End Date Zuly Bruno CNP PCP - General 07/19/18 Park Guide Relationship Specialty Start Date End Date Zuly Bruno CNP PCP - General 07/19/18 Park Guide Relationship Specialty Start Date End Date Zuly Bruno CNP PCP - General 07/19/18 Park Guide Relationship Specialty Start Date End Date Zuly Bruno CNP PCP - General 07/19/18 [place] Guide Relationship Specialty Start Date End Date Zuly Bruno CNP PCP - General 07/19/18 [place] Guide Relationship Specialty Start Date End Date Zuly Bruno CNP PCP - General 07/19/18 Park Guide Relationship Specialty Start Date End Date Zuly Bruno CNP PCP - General 07/19/18 Evan White DO [address] [place] [address] Infectious Disease Infectious Disease 09/09/23 Park Guide Relationship Specialty Start Date End Date Zuly Bruno CNP PCP - General 07/19/18 Evan White DO [address] [place] [address] Infectious Disease Infectious Disease 09/09/23 Park Guide Relationship Specialty Start Date End Date Zuly Bruno CNP PCP - General 07/19/18 Evan White DO [address] [place] [address] Infectious Disease Infectious Disease 09/09/23 Park Guide Relationship Specialty Start Date End Date Momo Verdugo MD PCP - General Family Medicine 05/21/23 Park Guide Relationship Specialty Start Date End Date Momo Verdugo MD PCP - General Family Medicine 05/21/23 Park Guide Relationship Specialty Start Date End Date Momo Verdugo MD PCP - General Family Medicine 05/21/23 Park Guide Relationship Specialty Start Date End Date Zuly Bruno CNP PCP - General 07/19/18 Evan White DO [address] [place] [address] Infectious Disease Infectious Disease 09/09/23 Park Guide Relationship Specialty Start Date End Date Zuly Bruno CNP PCP - General 07/19/18 Evan White DO [address] [place] [address] Infectious Disease Infectious Disease 09/09/23 Park Guide Relationship Specialty Start Date End Date Zuly Bruno CNP PCP - General 07/19/18 Evan White DO [address] [place], [place] [phone] Infectious Disease Infectious Disease 09/09/23 Park Guide Relationship Specialty Start Date End Date Zuly Bruno CNP PCP - General 07/19/18 Evan White DO [address] [place] [address] Infectious Disease Infectious Disease 09/09/23 Park Guide Relationship Specialty Start Date End Date BrianlatishaZuly tipton CNP PCP - General 07/19/18 Evan White DO [address] [place] [address] Infectious Disease Infectious Disease 09/09/23 Park Guide Relationship Specialty Start Date End Date BrianlatishaZuly tipton CNP PCP - General 07/19/18 Park Guide Relationship Specialty Start Date End Date Lexiesylevsterjose eZuly CNP PCP - General 07/19/18 Park Guide Relationship Specialty Start Date End Date LexiesylvesterAnnie dorantesROB feliz PCP - General 07/19/18 Park Guide Relationship Specialty Start Date End Date LexiesylvesterZuly dorantes ROB PCP - General 07/19/18 Park Guide Relationship Specialty Start Date End Date Annie Brunotray ROB PCP - General 07/19/18 Park Guide Relationship Specialty Start Date End Date Zuly Bruno ROB PCP - General 07/19/18 Park Guide Relationship Specialty Start Date End Date Zuly Bruno CNP PCP - General 07/19/18 Park Guide Relationship Specialty Start Date End Date Momo Verdugo MD [address] [place] [address] PCP - General Family Medicine 02/11/24 Zuly Bruno NP [address] [place] [address] Nurse Practitioner Family Medicine 02/11/24 Kasandra Thomas DO [address] [place], [place] [phone] Referring Physician Neurology 02/17/24 Park Guide Relationship Specialty Start Date End Date Momo Verdugo MD [address] [place] [address] PCP - General Family Medicine 02/11/24 Zuly Bruno NP [address] [place] [address] Nurse Practitioner Family Medicine 02/11/24 Kasandra Thomas DO [address] [place] [address] Referring Physician Neurology 02/17/24 Park Guide Relationship Specialty Start Date End Date Momo Verdugo MD [address] [place] [address] PCP - General Family Medicine 02/11/24 Zuly Bruno NP [address] [place] [address] Nurse Practitioner Family Medicine 02/11/24 Kasandra Thomas DO [address] [place] [address] Referring Physician Neurology 02/17/24 Park Guide Relationship Specialty Start Date End Date Momo Verdugo MD [address] [place] [address] PCP - General Family Medicine 02/11/24 Zuly Bruno NP [address] [place] [address] Nurse Practitioner Family Medicine 02/11/24 Kasandra Thomas DO [address] [place] [address] Referring Physician Neurology 02/17/24 Park Guide Relationship Specialty Start Date End Date Momo Verdugo MD [address] [place] [address] PCP - General Family Medicine 02/11/24 Zuly Bruno NP [address] [place] [address] Nurse Practitioner Family Medicine 02/11/24 Kasandra Thomas DO [address] [place] [address] Referring Physician Neurology 02/17/24 Park Guide Relationship Specialty Start Date End Date Momo Verdugo MD [address] [place] [address] PCP - General Family Medicine 02/11/24 Zuly Bruno NP [address] [place] [address] Nurse Practitioner Family Medicine 02/11/24 Kasandra Thomas DO [address] [place] [address] Referring Physician Neurology 02/17/24 Park Guide Relationship Specialty Start Date End Date Momo Verdugo MD [address] [place] [address] PCP - General Family Medicine 02/11/24 Zuly Bruno NP [address] [place] [address] Nurse Practitioner Family Medicine 02/11/24 Kasandra Thomas DO [address] [place] [address] Referring Physician Neurology 02/17/24 Park Guide Relationship Specialty Start Date End Date Momo Verdugo MD [address] [place] [address] PCP - General Family Medicine 02/11/24 Zuly Bruno NP [address] [place] [address] Nurse Practitioner Family Medicine 02/11/24 Kasandra Thomas DO [address] [place] [address] Referring Physician Neurology 02/17/24 Park Guide Relationship Specialty Start Date End Date Momo Verdugo MD [address] [place] [address] PCP - General Family Medicine 02/11/24 Zuly Bruno NP [address] [place] [address] Nurse Practitioner Family Medicine 02/11/24 Kasandra Thomas DO [address] [place] [address] Referring Physician Neurology 02/17/24 Park Guide Relationship Specialty Start Date End Date Momo Verdugo MD [address] [place] [address] PCP - General Family Medicine 02/11/24 Zuly Bruno NP [address] [place] [address] Nurse Practitioner Family Medicine 02/11/24 Kasandra Thomas DO [address] [place] [address] Referring Physician Neurology 02/17/24 Park Guide Relationship Specialty Start Date End Date Momo Verdugo MD [address] [place] [address] PCP - General Family Medicine 02/11/24 Zuly Bruno NP [address] [place] [address] Nurse Practitioner Family Medicine 02/11/24 Kasnadra Thomas DO [address] [place] [address] Referring Physician Neurology 02/17/24 Team Status: Active [...] Other Provider Active Start: December 26, 2024 Park Guide Relationship Specialty Start Date End Date Momo Verdugo MD [address] [place] [address] PCP - General Family Medicine 02/11/24 Zuly Bruno NP [address] [place] [address] Nurse Practitioner Family Medicine 02/11/24 Kasandra Thomas DO [address] [place] [address] Referring Physician Neurology 02/17/24 Park Guide Relationship Specialty Start Date End Date Momo Verdugo MD [address] [place] [address] PCP - General Family Medicine 02/11/24 Zuly Bruno NP [address] [place] [address] Nurse Practitioner Family Medicine 02/11/24 Kasandra Thomas DO [address] [place] [address] Referring Physician Neurology 02/17/24 Park Guide Relationship Specialty Start Date End Date Momo Verdugo MD [address] [place] [address] PCP - General Family Medicine 02/11/24 Zuly Bruno NP [address] [place] [address] Nurse Practitioner Family Medicine 02/11/24 Kasandra Thomas DO [address] [place] [address] Referring Physician Neurology 02/17/24 Park Guide Relationship Specialty Start Date End Date Momo Verdugo MD [address] [place] [address] PCP - General Family Medicine 02/11/24 Zuly Bruno, BA [address] [place] [address] Nurse Practitioner Family Medicine 02/11/24 Kasandra Thomas DO [address] [place] [address] Referring Physician Neurology 02/17/24 Park Guide Relationship Specialty Start Date End Date Momo Verdugo MD [address] [place] [address] PCP - General Family Medicine 02/11/24 Zuly Bruno NP [address] [place] [address] Nurse Practitioner Family Medicine 02/11/24 Kasandra Thomas DO [address] [place] [address] Referring Physician Neurology 02/17/24 Park Guide Relationship Specialty Start Date End Date Momo Verdugo MD [address] [place] [address] PCP - General Family Medicine 02/11/24 Zuly Bruno NP [address] [place] [address] Nurse Practitioner Family Medicine 02/11/24 Kasandra Thomas DO [address] [place] [address] Referring Physician Neurology 02/17/24 Scheduled [...] Provider: Carolyn Isaac RN)[phone] (Stopped - Provider: Caorlyn Isaac RN) Magnesium Sulfate 4 g in [...] [facility] Unhold - Provider: Automatic Transfer) 0923 (Given [...] Tati Ahmadi, SAMI)0917 (Given - Provider: Terra Herat, SAMI)1312 (Given - Provider: Terra Heart, SAMI) [...] [facility] Unhold - Provider: Automatic Transfer) No Frequency [...] BE BASED ON THE PRIMARY CLINICAL RECORDS. [facility] [employer] [facility]. provides no warranty or guarantee of the accuracy or completeness of information in this document.
[2025-03-07 07:44] LABS: Basophils Percent Auto 0.9 % (0.2-2.0); Eosinophils Absolute Auto 0.1 10^3/uL (0.0-0.7); Eosinophils Percent Auto 2.8 % (0.9-7.0); Hematocrit 47.5 % (42.0-54.0); Hemoglobin 16.1 g/dL (14.0-18.0); Immature Granulocytes Abs Auto 0.01 10^3/uL (0.00-0.03); Immature Granulocytes Pct Auto 0.2 % (0.0-0.5); Lymphocytes Absolute Auto 1.6 10^3/uL (1.2-3.8); Lymphocytes Percent Auto 34.5 % (20.5-60.0); Mean Corpuscular HGB Conc 33.9 g/dL (29.9-35.2); Mean Corpuscular Hemoglobin 29.7 pg (25.9-34.0); Mean Corpuscular Volume 87.6 fL (80.0-94.0); Mean Platelet Volume 9.8 fL (9.5-13.5); Monocytes Absolute Auto 0.4 10^3/uL (0.3-0.8); Monocytes Percent Auto 9.1 % (1.7-12.0); Neutrophils Absolute Auto 2.5 10^3/uL (1.4-6.5); Neutrophils Percent Auto 52.5 % (43.0-75.0); Platelet Count 216 10^3/uL (150-450); Red Blood Count 5.42 10^6/uL (4.70-6.10); Red Cell Distribution Width 12.5 % (11.0-15.0); White Blood Count 4.7 10^3/uL (4.0-11.0)
[2025-03-07 09:08] LABS: Alanine Aminotransferase 26 U/L (16-63); Alkaline Phosphatase 101 U/L (46-116); Anion Gap 13.3; Aspartate Amino Transferase 19 U/L (15-37); BUN Creatinine Ratio 7.5; Bilirubin Direct 0.2 mg/dL (0.0-0.2); Bilirubin Total 0.8 mg/dL (0.2-1.0); Calcium 9.1 mg/dL (8.5-10.1); Carbon Dioxide 24.6 mmol/L (21.0-32.0); Chloride 107 mmol/L (98-107); Estimated GFR (African America >60 (>=60 mL/min/1.73m^2); Estimated GFR (Non-African Ame 56 (>=60 mL/min/1.73m^2); Gamma Glutamyl Transpeptidase 26 U/L (15-85); Glucose 114 mg/dL (74-106); Magnesium 1.8 mg/dL (1.8-2.4); Phosphorus 2.8 mg/dL (2.6-4.7); Potassium 3.9 mmol/L (3.5-5.1); Sodium 141 mmol/L (136-145)
== END 2025-03-07 06:52 | disposition home or self-care (01) ==
LOC: LAB 06:53
PROVIDERS: PCP Nurse Practitioner
DX: M81.8 Other osteoporosis without current pathological fracture (principal); Z94.4 Liver transplant status; Z48.298 Encounter for aftercare following other organ transplant; Z79.899 Other long term (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; Z51.81 Encounter for therapeutic drug level monitoring
CPT/HCPCS: 36415; 80048; 80197; 82042; 82247; 82248; 82977; 83735; 83970; 84075; 84100; 84450; 84460; 85025

== ENCOUNTER 2025-03-08 08:40 | Outpatient (REF) | payer MEDICARE, SELFPAY ==
[2025-03-08 09:12] LABS: Calcium Urine Random 12.9 mg/dL (5.1-21.0); Creatinine Urine Random 59.28 mg/dL (20.00-300.00); Sodium Urine Random 74 mmol/L (30-90)
[2025-03-08 09:13] LABS: Calcium 24 Hour Urine 348.3 mg/24hr (100.0-300.0); Creatinine 24 Hour Urine 1600.56 mg/24 hr (1000.0-2000.00); Sodium 24 Hour Urine 200 mmol/24h (40-220); Total Volume 24 Hour Urine 2700 mL/24hr
== END 2025-03-08 08:41 | disposition home or self-care (01) ==
LOC: LAB 08:40
PROVIDERS: PCP Nurse Practitioner; Visit Provider Internal Medicine
DX: M81.8 Other osteoporosis without current pathological fracture (principal)
CPT/HCPCS: 82340; 82570; 84300

== ENCOUNTER 2025-05-02 06:29 | Outpatient (OUT) | payer MEDICARE, SELFPAY ==
--- OUTSIDE RECORDS SUMMARY | 2025-05-02 06:33 | XMS_ITS | Encounter Summary ---
Author Organization [facility] enter Address [address] [place] [address] Care Team Providers Care Hosted Services Analyst Name Role Phone Mihaela Bruno CNP Primary Care Provider [phone] Reason for Visit * Reason Comments Medication Refill Encounter Details Date Type Department Care Team (Late st Contact Info) Description 04/20/2025 Refill [facility] [address] [place] [address] Anayeli Arana, SAMI Social History Tobacco Use Types Packs/Day Years Used Date Smoking Tobacco: Former Cigarettes 1 29.8 0 07/19/1988 - 05/14/2018 Smokeless Tobacco: Former Chew Quit: 07/19/1994 Alcohol Use Standard Drinks/Week Comments Not Currently 2 (1 standard drink = 0.6 oz pur e alcohol) stopped 05/14/2018 Sex and Gender Information Value Date Recorded Sex Assigned at Not on file Legal Sex Male 9:29 AM EDT Gender Identity Male 07/07/2018 3:49 PM EDT Sexual Orientation Straight 01/16/2022 3: 40 PM EST documented as of this encounter Functional Status * Are you deaf or do you have serious difficulty hearing? Answer Date of Assessment Author No 01/16/2024 1:01 AM Izzy Kirkland RN * Are you blind or do you have serious difficulty seeing, even when wearing glasses? Answer Date of Assessment Author No 01/16/2024 1:01 AM Izzy Kirkland RN * Do you have serious difficulty walking or climbing stairs (5 years or older)? Answer Date of Assessment Author No 01/16/2024 1:01 AM Izzy Kirkland RN * Do you have difficulty dressing or bathing (5 yrs or older)? Answer Date of Assessment Author No 01/16/2024 1:01 AM Izzy Kirkland RN * Because of a physical, mental, or emotional condition, do you have difficulty doing errands alone such as visiting a doctor's office or shopping (5 yrs or older)? Answer Date of Assessment Author No 01/16/2024 1:01 AM Izzy Kirkland RN documented as of this encounter Mental Status * Because of a physical, mental, or emotional condition, do you have serious difficulty concentrating, remembering, or making decisions (5 yrs or older)? Answer Entry Date Author No 01/16/2024 1:01 AM Izzy Kirkland RN documented in this encounter Miscellaneous Notes * Telephone Encounter - Anayeli Arana RN - 04/20/2025 10:52 AM EDT REFILL REQUEST Patient Name: Esteban Styles ( ) Date of Liver Transplant: 04/13/2020 (Kidney), 04/13/2020 (Liver) Transplant Physician: Christiane Hilario Fitting Room Inspector: Anayeli Arana Primary Care physician: Mihaela Bruno Refill information: Medication requested: Myfortic Requested pharmacy: [facility] [address], [address] [facility] [address] [facility]/pharmacy #[id number] [place] [address] [address] [facility] [address] [facility] [address] [facility] [address], [place] [address] [facility] [address] [facility] [address] - [place] [address] - [address] [place] [facility] [address] Lab compliance: Today's date: 04/20/25 Most recent labs are from: 02/2025 Lab frequency ordered: Q2 months [facility] Appointment compliance: Last in person Transplant clinic appointment: 06/17/2024 Daisha Max DO Last Transplant telehealth appointment: 01/17/2022 [facility], [facility] Next scheduled clinic appointment: 08/04/2025 [facility]PAT[facility] 3, [facility] Comments / Outcome: - RX refill sent to pharmacy as requested. documented in this encounter Plan of Treatment Upcoming Encounters Date Type Department Care Team (Late st Contact Info) Description 08/04/2025 10:00 AM EDT Office Visit [facility] Transplant [facility] [address] [place] [address] 08/11/2025 10:30 AM EDT Office Visit [facility] Transplant [facility] [address] [place] [address] Rebeca Gutierrez APRN-ROB [address] [place] [address] documented as of this encounter Visit Diagnoses Not on filedocumented in this encounter Care Teams Hosted Services Analyst Relationship Specialty Start Date End Date Mihaela Bruno CNP PCP - General 07/19/18 documented as of this encounter
--- OUTSIDE RECORDS SUMMARY | 2025-05-02 06:34 | XMS_ITS | Encounter Summary ---
Author Organization [facility] Address [address] [place] [address] Care Team Providers Care Shop Director Name Role Phone Momo Verdugo MD Primary Care Provider Mihaela Bruno MANAGER ADMINISTRATIVE Unavailable [phone] MarthaNathanle DO Unavailable [phone] Momo Verdugo MD Unavailable Encounter Details Date Type Department Care Team (Late st Contact Info) Description 12/26/2024 Orders Only [facility] [address] [place] [address] Yoselyn Goins MD [address] [address] Social History Tobacco Use Types Packs/Day Years Used Date Smoking Tobacco: Former Cigarettes Q uit: 2018 Smokeless Tobacco: Never Alcohol Use Standard Drinks/Week Comments Not Currently 0 (1 standard drink = 0.6 oz pur e alcohol) Former Humiliation, Afraid, Rape, and Kick questionnair e Answer Date Recorded Within the last year, have y ou been afraid of your partner or ex-partner? No 10/27/2023 Within the last year, have y ou been humiliated or emotionally abused in other ways by your partner or ex-partner? No Within the last year, have y ou been kicked, hit, slapped, or otherwise physically hurt by your partner or ex-partner? No 10/27/2023 Within the last year, have y ou been raped or forced to have any kind of sexual activity by your partner or ex-partner? No 10/27/2023 Social Connection and Isolation Panel [NHANES] A nswer Date Recorded In a typical week, how many times do you talk on the phone with family, friends, or neighbors? Once a week 02/11/2024 How often do you get together with friends or re latives? Once a week 02/11/2024 How often do you attend sikh or worship serv ices? Never 02/11/2024 Do you belong to any clubs o r organizations such as sikh groups, unions, fraternal or athletic groups, or school groups? Yes 02/11/2024 How often do you attend meet ings of the clubs or organizations you belong to? Never 02/11/2024 Are you , , di vorced, , never , or living with a partner? 02/11/2024 AUDIT-C Answer Date Recorded Q1: How often do you have a drink containing alcohol? Never 10/27/2023 Q2: How many drinks containi ng alcohol do you have on a typical day when you are drinking? Patient does not drink Q3: How often do you have si x or more drinks on one occasion? Never 10/27/2023 Overall Financial Resource Strain (CARDIA) Answe r Date Recorded How hard is it for you to pa y for the very basics like food, housing, medical care, and heating? Not hard at all 10/27/2023 PHQ-2 Answer Date Recorded Patient Health Questionnaire-2 Score 0 02/11/2024 [facility] - Occupational Stress Questionnaire Answer Date Recorded Do you feel stress - tense, restless, nervous, or anxious, or unable to sleep at night because your mind is troubled all the time - these days? To some extent 10/27/2023 Exercise Vital Sign Answer Date Recorde d On average, how many days pe r week do you engage in moderate to strenuous exercise (like a brisk walk)? 0 days 10/27/2023 On average, how many minutes do you engage in exercise at this level? 0 min 10/27/2023 Hunger Vital Sign Answer Date Recorded Within the past 12 months, y ou worried that your food would run out before you got the money to buy more. Never true 10/27/20 23 Within the past 12 months, t he food you bought just didn't last and you didn't have money to get more. Never true 10/27/2023 PRAPARE - Transportation Answer Date Re corded In the past 12 months, has l ack of transportation kept you from medical appointments or from getting medications? No 10/01 In the past 12 months, has l ack of transportation kept you from meetings, work, or from getting things needed for daily living? No 10/27/2023 Housing Stability Vital Sign Answer Chris e Recorded In the last 12 months, was t here a time when you were not able to pay the mortgage or rent on time? No 10/27/2023 In the last 12 months, how many places have you lived? 1 10/27/2023 In the last 12 months, was t here a time when you did not have a steady place to sleep or slept in a nursing home (including now)? No 10/27/2023 Sex and Gender Information Value Date Recorded Sex Assigned at Not on file Legal Sex Male 7:07 PM EDT Gender Identity Not on file Sexual Orientation Not on file documented as of this encounter Plan of Treatment Upcoming Encounters Date Type Department Care Team (Late st Contact Info) Description 05/11/2025 10:00 AM EDT Office Visit [facility] [address] [place] [address] Mihaela Bruno NP [address] [place] [address] 09/19/2025 9:30 AM EDT Office Visit [facility] [address] [place] [phone] Tony Hernandez MD [address] [place] [address] documented as of this encounter Procedures Procedure Name Priority Date/Time Associated Diagnosis Comments COLONOSCOPY Routine 12/26/2024 1:58 PM EST documented in this encounter Results * Colonoscopy (12/26/2024 1:58 PM EST) Anatomical Region Laterality Modality Endoscopy Yoselyn Goins MD ENDOSCOPY PROCEDURE ORDERABLES F inal Result documented in this encounter Visit Diagnoses Not on filedocumented in this encounter Additional Health Concerns Assessment Noted Time PHQ-9 Depression Total Score: 2 02/11/20 10:49 AM EDT documented as of this encounter Care Teams Shop Director Relationship Specialty Start Date End Date Momo Verdugo MD [address] [place] [address] PCP - General Family Medicine 02/11/24 Momo Verdugo MD [address] [place] [address] PCP - Aet 12/31/24 Mihaela Bruno NP [address] [place] [address] Nurse Practitioner Family Medicine 02/11/24 Kasandra Thomas DO [address] [place] [address] Referring Physician Neurology 02/17/24 documented as of this encounter
--- OUTSIDE RECORDS SUMMARY | 2025-05-02 06:34 | XMS_ITS | Encounter Summary ---
Author Organization [facility] enter Address [address] [place] [address] Care Team Providers Care Family Health Nurse Practitioner Name Role Phone Mihaela Bruno CNP Primary Care Provider [phone] Comfort Rivera [facility] Unavailable [phone] Angel Carpio Unavailable Unavailable Te Leigh [facility],PharmD Unavailable Unavai Evan Valdivia DO Unavailable [phone] Evan White DO Unavailable [phone] Encounter Details Date Type Department Care Team (Late st Contact Info) Description 09/18/2020 Orders Only [facility]INICAL [facility] TISSUE TYPING [facility] [address] [place] [address] Orders, Other Status post kidney transplant Social History Tobacco Use Types Packs/Day Years [...] Orientation Straight 01/16/2022 3: 40 PM EST COVID-19 Exposure Response Date Recorded In the last month, have you been in contact with someone who was confirmed or suspected to have Coronavirus / COVID-19? Unable to assess 09/21/2020 8:19 AM EDT documented as of this encounter Functional Status * Are you deaf or do you have serious difficulty hearing? Answer Date of Assessment Author No 05/10/2020 4:24 AM EDT Selwyn Astorga RN * Are you blind or do you have serious difficulty seeing, even when wearing glasses? Answer Date of Assessment Author No 05/10/2020 4:24 AM EDT Selwyn Astorga RN * Do you have serious difficulty walking or climbing stairs (5 years or older)? Answer Date of Assessment Author No 05/10/2020 4:24 AM EDT Selwyn Astorga RN * Do you have difficulty dressing or bathing (5 yrs or older)? Answer Date of Assessment Author No 05/10/2020 4:24 AM EDT Selwyn Astorga RN * Because of a physical, mental, or emotional condition, do you have difficulty doing errands alone such as visiting a doctor's office or shopping (5 yrs or older)? Answer Date of Assessment Author No 05/10/2020 4:24 AM EDT Selwyn Astorga RN documented as of this encounter Mental Status * Because of a physical, mental, or emotional condition, do you have serious difficulty concentrating, remembering, or making decisions (5 yrs or older)? Answer Entry Date Author No 05/10/2020 4:24 AM EDT Selwyn Astorga RN documented in this encounter Plan of Treatment Upcoming Encounters Date Type Department Care Team (Late st Contact Info) Description 08/04/2025 10:00 AM EDT Office Visit [facility] [address] [place] [address] 08/11/2025 10:30 AM EDT Office Visit [facility] [address] [place] [address] Rebeca Gutierrez APRN-ROB [address] [place] [address] documented as of this encounter Procedures Procedure Name Priority Date/Time Associated Diagnosis Comments ALLOSCREEN RECIPIENT (POST TX PRA) Routine 09/17/2020 7:15 AM EDT Status post kidney transplant documented in this encounter Results * ALLOSCREEN RECIPIENT (POST TX PRA) (09/17/2020 7:15 AM EDT) cPRA 0 0 % 09/19/2020 3:25 PM EDT [facility] TISSUE TYPING CLASS I SPECIFICITIES None Detected 09/19/2020 3:25 PM EDT [facility] TISSUE TYPING CLASS II SPECIFICITIES None Detected 09/19/2020 3:25 PM EDT [facility] TISSUE TYPING ANTIBODY SPECIFICITY INTERPRETATION No DSA detected 09/19/2020 3:25 PM EDT [facility] TISSUE TYPING AB SPECIFICITY CLASS COMMENT Antibody Specificity testing performed by [employer] [facility]. cPRA calculation based on identification of HLA antibody specificities at MFI >2000 and/or presence of CREG antibodies. 09/19/2020 3:25 PM EDT [facility] TISSUE TYPING Comment: Some of the reagents used for testing in the Clinical Histocompatibility Laboratory have yet to be approved by the FDA. Our certification by CLIA to perform high complexity tests allows us to use these reagents in the context of a stringent QC program, and obviates the need for FDA approval.Testing performed by the [facility] Clinical Histocompatibility Laboratory. [facility] number: [id number]. CLIA number: [id number], Director: Carlito Merchant, PhD, D([facility]). Blood Venipuncture / Unknown 09/17/2020 7:15 AM EDT 09/18/2020 2:45 PM EDT Steve LEIGH TISSUE TYPING Final Result [facility] TISSUE TYPING documented in this encounter Visit Diagnoses Diagnosis Status post kidney transplant documented in this encounter Additional Health Concerns Infection Onset Date Last Indicated Resolved Time COVID-19 Suspected 05/16/2022 05/16/2022 2 6:25 AM EDT COVID-19 Suspected 08/28/2023 08/28/2023 3 7:52 PM EDT R/O Respiratory Virus 08/28/2023 08/28/20233 11:55 PM EDT COVID-19 Suspected 08/28/2023 08/28/2023 11:55 PM EDT documented as of this encounter Care Teams Family Health Nurse Practitioner Relationship Specialty Start Date End Date Mihaela Bruno CNP PCP - General 07/19/18 Comfort Rivera [facility] [address] [place] [address] Pharmacist Pharmacist 05/16/20 05/14/22 Angel Carpio Pharmacist Pharmacist 05/16/20 05/14/[address] [facility],PharmD Pharmacist Pharmacist 01/09/21 Evan White DO [address] [place] [address] Infectious Disease Infectious Disease 09/09/23 03/14/24 Evan White DO [address] [place] [id number] Infectious Disease Infectious Disease 09/08/24 4 documented as of this encounter
--- OUTSIDE RECORDS SUMMARY | 2025-05-02 06:34 | XMS_ITS | Encounter Summary ---
Author Organization [facility] Address [address] [facility] [place] [address] Care Team Providers Care Semiconductor Package Symbol Stamper Name Role Phone Momo Verdugo MD Primary Care Provider [phone] iMhaela Bruno NURSING ASSISTANT Unavailable [phone] Martha Kasandra DO Unavailable [phone] Momo Verdugo MD Unavailable Encounter Details Date Type Department Care Team (Late st Contact Info) Description 03/07/2025 Orders Only [facility] [address] [place] [address] Tony Hernandez MD [address] [place] [address] Social History Tobacco Use Types Packs/Day Years Used Date Smoking Tobacco: Former Cigarettes Q uit: 2018 Smokeless Tobacco: Never Alcohol Use Standard Drinks/Week Comments Not Currently 0 (1 standard drink = 0.6 oz pur e alcohol) Former B1300 Health Literacy Answer Date Recor ded How often do you need to hav e someone help you when you read instructions, pamphlets, or other written material from your doctor or pharmacy? Never 02/06/2025 Humiliation, Afraid, Rape, and Kick questionnair e [...] family, friends, or neighbors? Once a week 02/06/2025 How often do you get togethe r with friends or relatives? Once a week 02/06/2025 How often do you attend nondenominational or religion serv ices? Never 02/06/2025 Do you belong to any clubs o r organizations such as nondenominational groups, unions, fraternal or athletic groups, or school groups? No 02/06/2025 How often do you attend meet ings of the clubs or organizations you belong to? Never 02/06/2025 Are you , , di vorced, , never , or living with a partner? Patient declined 02/06/2025 AUDIT-C Answer Date Recorded Q1: How often do you have a drink containing alcohol? Never 02/06/2025 Q2: How many drinks containi ng alcohol do you have on a typical day when you are drinking? Patient does not drink Q3: How often do you have si x or more drinks on one occasion? Never 02/06/2025 Overall Financial Resource Strain (CARDIA) Answe r Date Recorded How hard is it for you to pa y for the very basics like food, housing, medical care, and heating? Not hard at all 02/06/2025 PHQ-2 Answer Date Recorded Patient Health Questionnaire-2 Score 0 02/11/2024 [facility] [place] [facility] - Occupational Stress Questionnaire Answer Date Recorded Do you feel stress - tense, restless, nervous, or anxious, or unable to sleep at night because your mind is troubled all the time - these days? Not at all 02/06/2025 Exercise Vital Sign Answer Date Recorde d On average, how many days pe r week do you engage in moderate to strenuous exercise (like a brisk walk)? 0 days 02/06/2025 On average, how many minutes do you engage in exercise at this level? 0 min 02/06/2025 Hunger Vital Sign Answer Date Recorded Within the past 12 months, y ou worried that your food would run out before you got the money to buy more. Never true 02/07/20 25 Within the past 12 months, t he food you bought just didn't last and you didn't have money to get more. Never true 02/06/2025 PRAPARE - Transportation Answer Date Re corded In the past 12 months, has l ack of transportation kept you from medical appointments or from getting medications? No 01/28 In the past 12 months, has l ack of transportation kept you from meetings, work, or from getting things needed for daily living? No 02/06/2025 Housing Stability Vital Sign Answer Chris e [...] place to sleep or slept in a mcc (including now)? No 10/27/2023 Housing Stability Vital Sign Answer Chris e Recorded In the last 12 months, was t here a time when you were not able to pay the mortgage or rent on time? No 02/06/2025 In the past 12 months, how m any times have you moved where you were living? 0 02/06/2025 At any time in the past 12 m [facility], were you homeless or living in a mcc (including now)? No 02/06/2025 Sex and Gender Information Value Date Recorded Sex Assigned at Not on file Legal Sex Male 7:07 PM EDT Gender Identity Not on file Sexual Orientation Not on file documented as of this encounter Plan of Treatment Upcoming Encounters Date Type Department Care Team (Late st Contact Info) Description 05/11/2025 10:00 AM EDT Office Visit [facility] [address] [place] [address] Mihaela Bruno NP [address] [place] [address] 09/19/2025 9:30 AM EDT Office Visit [facility] [address] [place] [address] Tony Hernandez MD [address] [place] [address] documented as of this encounter Procedures Procedure Name Priority Date/Time Associated Diagnosis Comments COMPREHENSIVE METABOLIC PANEL Routine 03/07/2025 10:17 AM EDT documented in this encounter Results * Comprehensive metabolic panel (03/07/2025 10:17 AM EDT) Blood Venous blood specimen / Unknown Tony Hernandez MD LAB BLOOD ORDERABLES Final Re sult documented in this encounter Visit Diagnoses Not on filedocumented in this encounter Additional Health Concerns Assessment Noted Time PHQ-9 Depression Total Score: 2 02/11/20 24 10:49 AM EDT documented as of this encounter Care Teams Semiconductor Package Symbol Stamper Relationship Specialty Start Date End Date Momo Verdugo MD [address] [place] [phone] PCP - General Family Medicine 02/11/24 Momo Verdugo MD [address] [place] [address] PCP - [employer] 12/31/24 Mihaela Bruno NP [address] [place] [address] Nurse Practitioner Family Medicine 02/11/24 Kasandra Thomas DO [address] [place] [address] Referring Physician Neurology 02/17/24 documented as of this encounter
--- OUTSIDE RECORDS SUMMARY | 2025-05-02 06:34 | XMS_ITS | Clinical Summary ---
Author Organization [facility] Address [id number] [address] [place] [address] Care Team Providers Care Cut Out Marker Name Role Phone Unavailable Primary Care Provider Unavailabl e Social History Tobacco Use Types Packs/Day Years Used Date Smoking Tobacco: Never Assessed Childcare Answer Date Recorded Childcare Unknown 05/12/2019 Employment Answer Date Recorded Employment Unknown 05/12/2019 Purpose - Life Answer Date Recorded Purpose and direction in life Unknown Sex and Gender Information Value Date Recorded Sex Assigned at Not on file Legal Sex Male 1:10 AM EDT Gender Identity Not on file Sexual Orientation Not on file Plan of Treatment Not on file Medical Devices Not on file Insurance [employer]
--- OUTSIDE RECORDS SUMMARY | 2025-05-02 06:34 | XMS_ITS ---
Author Organization [facility] Address [address] [place] [address] [place] [address] Care Team Providers Care Wedding Photographer Name Role Phone LexiesylvesterMihaela dorantes CNP Primary Care Provider [phone] Transplant Episode Liver Recipient [facility] ([place], [place]) [place] Organ Received: Liver Transplanted on 04/13/2020 Marked as Active Follow-up on 04/13/2020 Liver CoordinatorAnayeli Arana RN Phone: N/A Fax: N/A Email: N/A [place] Organ Diagnosis Organ Primary Contributory Liver Alcoholic Cirrhosis Infection History Noted Survival Infection Treatment Organism Resolved 09/10/2023 3 years 4 months Histoplasmosis Donor Information Organ ABO Source Meets Risk Criteria HLA Match Mismatches Cross Match Liver Transplanted O DCD No A: B: DR: Liver Donor Serology Results Anti-HBcAb HBC Total: Negative HBsAg HBsAg: Negative HBsAb HBsAb: Not Done Anti-HCV HCV Ab: Negative HCV-KUMAR HCV KUMAR: Negative Anti-HIV I/II HIV Ag/Ab Combo Assay: Not Done HIV-KUMAR HIV KUMAR: Negative Anti-CMV CMV IgG: Negative Anti-HTLV I/II HTLV: Negative RPR/VDRL RPR: Negative EBV IgG EBV VCA IgG: Positive EBV IgM EBV VCA IgM: Negative EBNA EBNA IgG: Not Done EBNA IgM: Not Done WNV IgG No results on file WNV IgM No results on file WNV KUMAR No results on file Care Team Name Role Phone Fax Email Anayeli Arana RN Liver Coordinator N/A N/A N/A LU Palma Surgeon N/A N/A N/A Christiane Ramsey MD Transplant Physician [phone] N/A KUMAR Yusuf Color Depositing Machine Tender N/A N/A N/A Events Post-Transplant Pre-Transplant Admitted: 04/12/2020 Referred: 07/28/2018 Transplanted: 04/13/2020 Evaluation began: 8 Discharged: 04/22/2020 Committee: 05/23/2019 Center waitlisted: 9 Dialysis History Dialysis History Start End Type Comments Center 06/30/2018 04/13/2020 [facility]ul[facility], NEED [address] [facility] Dialysis Center Information Center Phone Fax Address [facility] [employer] [phone] [address] [facility] [address]
--- OUTSIDE RECORDS SUMMARY | 2025-05-02 06:34 | XMS_ITS | Encounter Summary ---
Author Organization [facility] Address [address] [place] [address] Care Team Providers Care Proctologist Name Role Phone Momo Verdugo MD Primary Care Provider [phone] Mihaela Bruno NP Unavailable [phone] Kasandra Thomas DO Unavailable [phone] Momo Verdugo MD Unavailable Encounter Details Date Type Department Care Team (Late st Contact Info) Description 07/26/2024 Clinisync Result Encounter [facility] External Department Unsolicited Provider, Generic External Data Social History Tobacco Use Types Packs/Day Years [...] week 02/11/2024 How often do you attend restorationist or voodoo serv ices? Never 02/11/2024 Do you belong to any clubs o r organizations such as restorationist groups, unions, fraternal [...] Recorded Patient Health Questionnaire-2 Score 0 02/11/2024 [facility] - Occupational [...] place to sleep or slept in a intermediate (including now)? No 10/27/2023 Sex and Gender Information Value Date Recorded Sex Assigned at Not on file Legal Sex Male 7:07 PM EDT Gender Identity Not on file Sexual Orientation Not on file documented as of this encounter Plan of Treatment Upcoming Encounters Date Type Department Care Team (Late st Contact Info) Description 05/11/2025 10:00 AM EDT [facility] [address] [place] [address] Mihaela Bruno NP [address] [place] [address] 09/19/2025 9:30 AM EDT Office Visit [facility] [address] [place] [phone] Tony Hernandez MD [address] [place] [address] documented as of this encounter Procedures Procedure Name Priority Date/Time Associated Diagnosis Comments MR ABDOMEN W AND WO CONTRAST 07/26/2024 8:13 AM EDT documented in this encounter Results * MR abdomen w and wo contrast (07/26/2024 8:13 AM EDT) Anatomical Region Laterality Modality Abdomen Magnetic Resonan ce 07/26/2024 8:13 AM EDT Narrative 07/26/2024 8:15 [place] [address] Magnetic Resonance Report Signed Patient: GEORGE STYLES MR#: [id number] : 1970 Acct:[id number] Age/Sex: 54 / M ADM Date: 07/20/24 Loc: MRI Attending Dr: Bibi-Staff Physician Pena Ordering Physician: Anastasia Aquino M.D. Date of Service: 07/20/24 Procedure(s): MR abdomen wo/w con Accession Number(s): [id number] cc: Mihaela Bruno NP; Anastasia Aquino M.D. [place] [address] Patient Name: GEORGE STYLES MRN: [id number] date: 1970 Sex: M Assigned Patient Location: MRI Current Patient Location: LAB Accession/Order Number: [id number] Exam Date: 07/20/2024 08:15 Report Date: 07/26/2024 08:13 At the request of: NON-STAFF PHYSICIAN Procedure: MR abdomen wo/w con EXAMINATION: MR abdomen wo/w con HISTORY: Liver Lesion COMPARISON: 05/21/2023 CT exam TECHNIQUE: A comprehensive MRI examination of the abdomen was performed to optimize visualization of suspected pathology. Images were obtained both before and after intravenous administration of Dotarem contrast. FINDINGS: LIVER: The liver is stable in size, contour and echotexture. No focal or enhancing mass is identified BILIARY: The gallbladder is absent. No biliary dilation is observed PANCREAS: No lesion, fluid collection, ductal dilatation, or atrophy. SPLEEN: No enlargement or focal lesion. KIDNEYS: The [place] kidneys are severely atrophic. Right lower quadrant transplant kidney is partially visualized ADRENALS: No mass or enlargement. AORTA/VASCULAR: No aneurysm or dissection. RETROPERITONEUM: No mass or adenopathy. BOWEL/MESENTERY: No visible mass, obstruction, or bowel wall thickening. ABDOMINAL WALL: No mass or hernia. BONES: No bony lesion or fracture. LUNG BASES: No visible pleural disease. Lung bases not well assessed with MRI. OTHER: Negative. MR/MR abdomen wo/w con IMPRESSION: No focal or enhancing liver lesion identified Electronically authenticated by: GIAN RODRIGUEZ Date: 07/26/2024 08:13 Dictated By: Gian Rodriguez M.D. Signed By: 07/26/24814 DD/ 2 TD/TT: Banking Supervisor: Procedure Note Radiology, Radiologist, - 07/26/2024 [place] [address] Magnetic Resonance Report Signed Patient: GEORGE STYLES AMR#: [id number] : 1970Acct:[id number] Age/Sex: 54 / MADM Date: 07/20/24 Loc: MRI Attending Dr: Non-Staff Physician MFranck Ordering Physician: PhysicianNon-Staff Becky Date of Service: 07/20/24 Procedure(s): MR abdomen wo/w con Accession Number(s): [id number] cc: Mihaela Bruno CMA; Physician,Bibi-Staff Becky [place] [address] Patient Name: GEORGE STYLES MRN: [id number] date: 1970 Sex: M Assigned Patient Location: MRI Current Patient Location: LAB Accession/Order Number: [id number] Exam Date: 07/20/2024 08:15 Report Date: 07/26/2024 08:13 At the request of: NON-STAFF PHYSICIAN Procedure: MR abdomen wo/w con EXAMINATION: MR abdomen wo/w con HISTORY: Liver Lesion COMPARISON: 05/21/2023 CT exam TECHNIQUE: A comprehensive MRI examination of the abdomen was performed to optimize visualization of suspected pathology. Images were obtained both before and after intravenous administration of Dotarem contrast. FINDINGS: LIVER: The liver is stable in size, contour and echotexture. No focal or enhancing mass is identified BILIARY: The gallbladder is absent. No biliary dilation is observed PANCREAS: No lesion, fluid collection, ductal dilatation, or atrophy. SPLEEN: No enlargement or focal lesion. KIDNEYS: The [place] kidneys are severely atrophic. Right lower quadrant transplant kidney is partially visualized ADRENALS: No mass or enlargement. AORTA/VASCULAR: No aneurysm or dissection. RETROPERITONEUM: No mass or adenopathy. BOWEL/MESENTERY: No visible mass, obstruction, or bowel wall thickening. ABDOMINAL WALL: No mass or hernia. BONES: No bony lesion or fracture. LUNG BASES: No visible pleural disease. Lung bases not well assessed withMRI. OTHER: Negative. MR/MR abdomen wo/w con IMPRESSION: No focal or enhancing liver lesion identified Electronically authenticated by: GIAN RODRIGUEZ Date: 07/26/2024 08:13 Dictated By: Gian Rodriguez M.D. Signed By:07/26/24814 DD/ 2 TD/TT: Banking Supervisor: us Generic External Data Provider IMG MRI PROCEDURE S Final Result documented in this encounter Visit Diagnoses Not on filedocumented in this encounter Additional Health Concerns Assessment Noted Time PHQ-9 Depression Total Score: 2 02/11/20 10:49 AM EDT documented as of this encounter Care Teams Proctologist Relationship Specialty Start Date End Date Momo Verdugo MD [address] [place] [address] PCP - General Family Medicine 02/11/24 Momo Verdugo MD [address] [place] [address] PCP - [employer] 12/31/24 Mihaela Bruno NP [address] [place] [address] Nurse Practitioner Family Medicine 02/11/24 Kasandra Thomas DO [address] [place] [address] Referring Physician Neurology 02/17/24 documented as of this encounter
--- OUTSIDE RECORDS SUMMARY | 2025-05-02 06:34 | XMS_ITS | Clinical Summary ---
Author Organization [facility] Address [address] [place] [address] Care Team Providers Care Medical Billing Service Name Role Phone Mihaela Bruno MD Primary Care Provider [phone] Allergies Active Allergy Reactions Criticality Noted Date Comments Shellfish Derived Swelling High 02/08/2019 Patient with lip and tongue swelling. Medications Medication Sig Dispensed Refills Start Date End Date Status allopurinol (Zyloprim) 100 mg tablet allopurinol 100 mg tablet take 2 tablets by mouth once daily Active aspirin 81 mg EC tablet in the morning. Active famotidine (Pepcid) 20 mg tablet Take 20 mg by mouth twice a day. Active gabapentin (Neurontin) 400 mg capsule gabapentin 400 mg capsule take 1 capsule by mouth at bedtime Active melatonin 3 mg tablet Take 3 mg by mouth if needed each day. Active mycophenolate (Myfortic) 180 mg EC tablet Take 360 mg by mouth every 12 (twelve) hours. 03/10/2023 Active tacrolimus (Prograf) 0.5 mg capsule Take 0.5 mg by mouth twice a day. 03/10/2023 Active tamsulosin (Flomax) 0.4 mg 24 hr capsule Take 0.4 mg by mouth in the morning. 06/19/2022 Active torsemide (Demadex) 20 mg tablet Take 20 mg by mouth in the morning. 01/22/2024 Active alendronate (Fosamax) 70 mg tablet Take 70 mg by mouth once a week. 03/21/2025 09/05/2025 Active ergocalciferol (Vitamin D-2) 1.25 MG (25058 Units) capsule Take 50,000 Units by mouth 1 (one) time per week. 03/21/2025 09/05/2025 Active losartan (Cozaar) 50 mg tablet Take 1 tablet by mouth in the morning and at bedtime. Active ondansetron ODT (Zofran-ODT) 4 mg disintegrating tablet Take 4 mg by mouth every 8 (eight) hours if needed. 09/08/2024 Active tadalafil (Cialis) 10 mg tablet Take 10 mg by mouth if needed each day. 11/22/2024 Active amLODIPine (Norvasc) 10 mg tabletIndications:Pr imary hypertension Take 1 tablet (10 mg) by mouth in the morning. 90 tablet 3 03/22/2025 03/22/2026 Active atorvastatin (Lipitor) 20 mg tabletIndications:Co ronary artery disease involving [place] coronary artery of [place] heart without angina pectoris,Mixed hyperlipidemia Take 1 tablet (20 mg) by mouth at bedtime. 90 tablet 3 03/22/2025 03/22/2026 Active Active Problems Problem Noted Date Diagnosed Date Elevated blood uric acid level 02/24/2025 BPH with urinary obstruction 02/08/2025 Erectile dysfunction 02/08/2025 Other osteoporosis without current pathological fracture 09/08/2024 Overview (03/22/2025): DEXA 09/06/2024: -2.5 osteoporosis Decreased urine stream 08/23/2024 Dysuria 08/23/2024 Other constipation 08/23/2024 Eczema 02/25/2024 Weakness generalized 02/18/2024 Complication of AV dialysis fistula 02/11/2024 Diastolic dysfunction 02/11/2024 Hyperlipidemia 02/11/2024 Left carotid bruit 02/11/2024 Overview (03/22/2025): Carotid US: 08/28/2022: no significant blockage 09/05/2024: less than 50% bilat Portal hypertension 02/11/2024 Umbilical hernia 02/11/2024 Heart failure, diastolic, acute 01/20/2024 Pleural effusion on right 01/16/2024 Bilateral lower extremity edema 01/06/2024 Hypertension 01/06/2024 Insomnia 01/06/2024 Shortness of breath 01/06/2024 Peripheral neuropathy 12/03/2023 Abdominal pain, generalized 11/03/2023 Blood glucose elevated 11/03/2023 Calculus of kidney 11/03/2023 Complication of dialysis access insertion 2022 Dysfunction of papillary muscle 11/03/2023 Gastroesophageal reflux disease 11/03/2023 Generalized anxiety disorder 11/03/2023 Immunodeficiency, unspecified 11/03/2023 DARLENE (obstructive sleep apnea) 11/03/2023 Overview (03/22/2025): Sleep titration study on 11/17/23 CPAP of 10cm, ramp time 20 with humidification Panic disorder without agoraphobia 11/03/2023 Tremor 11/03/2023 Histoplasmosis 09/10/2023 CAD (coronary artery disease) 04/13/2023 Essential hypertension, benign 04/13/2023 FAYE (acute kidney injury) 05/15/2022 Nausea & vomiting 05/10/2020 Liver failure 04/09/2020 Obesity (BMI 30.0-34.9) 04/09/2020 History of liver transplant 04/08/2020 Overview (04/13/2023): Added automatically from request for surgery [id number] Anemia 10/07/2019 Cardiovascular stress test abnormal 10/07/2019 Chest pain 10/07/2019 Chronic renal failure 10/07/2019 History of gastrointestinal hemorrhage 9 -donor kidney transplant recipient 07/25 Liver transplant candidate 07/24/2019 Hepatic encephalopathy 10/19/2018 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 Overview (04/13/2023): Added automatically from request for surgery [id number] Pre-transplant evaluation for liver transplant 1 12/05/2017 Overview (04/13/2023): Added automatically from request for surgery [id number] Increased ammonia level 06/22/2018 Acute megaloblastic anemia 06/11/2018 Alcoholism 06/11/2018 Anasarca 06/11/2018 Ascites 06/11/2018 Chronic liver disease and cirrhosis 06/11/2018 Overview (04/13/2023): Added automatically from request for surgery [id number] Acute renal failure syndrome 06/11/2018 Metabolic encephalopathy 06/11/2018 Severe protein-calorie malnu trition (Campos: less than 60% of standard weight) 06/11/2018 End-stage renal disease 06/01/2018 Overview (04/13/2023): Added automatically from request for surgery [id number] Encounters Date Type Department Care Team Description 03/22/2025 3:30 PM EDT Office Visit [place] [address] [place] [address] Miguel Lubin MD Coronary artery disease involving [place] coronary artery of [place] heart without angina pectoris (Primary Dx); Pericardial effusion; Primary hypertension; Mixed hyperlipidemia; History of renal transplant; Hx of liver transplant (CMS/HCC) from Last 3 Months Family History Medical History Relation Name Comments Coronary artery disease Brother Coronary artery disease Father Coronary artery disease Mother Coronary artery disease Sister Relation Name Status Comments Brother Alive Father Mother Sister Alive Social History Tobacco Use Types Packs/Day Years Used Date Smoking Tobacco: Former Cigarettes Smokeless Tobacco: Never Tobacco Cessation:Counseling Given: Not Answered Alcohol Use Standard Drinks/Week Comments Not Currently 0 (1 standard drink = 0.6 oz pur e alcohol) [place] Safety & Environment Answer Date Rec orded Fear of Current or Ex-Partner Not on file Emotionally Abused Not on file 01/21/2024 Physically Abused Not on file 01/21/2024 Sexually Abused Not on file 01/21/2024 Physically or Sexually Abused Not on file Sex and Gender Information Value Date Recorded Sex Assigned at Not on file Gender Identity Not on file Sexual Orientation Not on file Last Filed Vital Signs Vital Sign Reading Time Taken Comments Blood Pressure 147/91 03/22/2025 4:26 PM EDT Pulse 77 03/22/2025 4:26 PM EDT Temperature - - Respiratory Rate 12 05/13/2024 1:53 PM EDT Oxygen Saturation 96% 03/22/2025 4:26 PM EDT Inhaled Oxygen Concentration - - Weight 92.5 kg (204 lb) 03/22/2025 4:26 PM EDT Height 170.2 cm (5' 7 ) 03/22/2025 4:26 PM EDT Body Mass Index 31.95 03/22/2025 4:26 PM EDT Plan of Treatment Health Maintenance Due Date Last Done Comments CT Colonography 1971 FIT-DNA 1971 FIT 1970 FOBT 1970 Medicare Annual Wellness (AWV) 1970 Sigmoidoscopy 1970 Pneumococcal Vaccine: Pediatrics (0 to 5 Years) and At-Risk Patients (6 to 64 Years) (1 of 2 - PCV) 1977 Depression Screening 1983 Hepatitis B Vaccines (1 of 3 - 19+ 3-dose series) 1990 Zoster Vaccines (1 of 2) 1990 Adult Tetanus 1993 COVID-19 Vaccine ( season) 2024 11/01/2024, 11/03/2023, 11/03/2023, Additional history exists Colonoscopy 12/26/2034 12/26/2024, 09/20/2019 Colorectal Cancer Screening 12/26/2034 Influenza Vaccine Completed 11/01/2024, , 11/03/2023, Additional history exists HIB Vaccines Aged Out No longer eligi ble based on patient's age to complete this topic HPV Vaccines Aged Out No longer eligi ble based on patient's age to complete this topic IPV Vaccines Aged Out No longer eligi ble based on patient's age to complete this topic Meningococcal B Vaccine Aged Out No l onger eligible based on patient's age to complete this topic Meningococcal Vaccine Aged Out No rasheeda cas eligible based on patient's age to complete this topic Rotavirus Vaccines Aged Out No longer eligible based on patient's age to complete this topic Care Teams Medical Billing Service Relationship Specialty Start Date End Date Mihaela Bruno MD [address] [place] [address] PCP - General 01/15/23
--- OUTSIDE RECORDS SUMMARY | 2025-05-02 06:34 | XMS_ITS | Referral Summary ---
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 (Primary Dx); Pericardial effusion; Primary hypertension; Mixed hyperlipidemia; History of renal transplant; Hx of liver transplant (CMS/HCC) from Last 3 Months Allergies Active Allergy Reactions Criticality Noted Date [...] 09/05/2025 Active ergocalciferol (Vitamin D-2) 1.25 MG (16746 Units) capsule Take 50,000 Units by mouth [...] 20 mg tabletIndications:Co ronary artery disease involving tonawanda coronary artery of tonawanda heart without angina pectoris,Mixed hyperlipidemia Take 1 [...] (04/13/2023): Added automatically from request for surgery [id number] Anemia 10/07/2019 Cardiovascular stress test abnormal 10/07/2019 Chest pain 10/07/2019 Chronic renal failure 10/07/2019 History of gastrointestinal hemorrhage 9 -donor kidney transplant recipient 07/25 Liver transplant candidate 07/24/2019 Hepatic encephalopathy 10/19/2018 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 Overview (04/13/2023): Added automatically from request for surgery [id number] Pre-transplant evaluation for liver transplant 1 12/05/2017 Overview (04/13/2023): Added automatically from request for surgery [id number] Increased ammonia level 06/22/2018 Acute megaloblastic anemia 06/11/2018 Alcoholism 06/11/2018 Anasarca 06/11/2018 Ascites 06/11/2018 Chronic liver disease and cirrhosis 06/11/2018 Overview (04/13/2023): Added automatically from request for surgery [id number] Acute renal failure syndrome 06/11/2018 Metabolic encephalopathy 06/11/2018 Severe protein-calorie malnu trition (Campos: less than 60% of standard weight) 06/11/2018 End-stage renal disease 06/01/2018 Overview (04/13/2023): Added automatically from request for surgery [id number] Social History Tobacco Use Types Packs/Day Years [...] 03/22/2025 4:26 PM EDT Plan of Treatment Not on file Care Teams Kiln Packer Relationship Specialty Start Date End Date Mihaela Bruno MD [address] [place] [address] PCP - General 01/15/23
--- OUTSIDE RECORDS SUMMARY | 2025-05-02 06:34 | XMS_ITS | Encounter Summary ---
Author Organization [facility] Address [address] [place] [address] Care Team Providers Care Utility Worker Production Name Role Phone Momo Verdugo MD Primary Care Provider [phone] Mihaela Bruno FOOD SAFETY OFFICER Unavailable [phone] Martha Kasandra DO Unavailable [phone] Momo Verdugo MD Unavailable Encounter Details Date Type Department Care Team (Late st Contact Info) Description 03/10/2025 Orders Only [facility] [address] [place] [address] Tony Hernandez MD [address] [place] [address] Social History Tobacco Use Types Packs/Day Years [...] week 02/06/2025 How often do you attend episcopal or latter-day serv ices? Never 02/06/2025 Do you belong to any clubs o r organizations such as episcopal groups, unions, fraternal or athletic groups, or [...] Recorded Patient Health Questionnaire-2 Score 0 02/11/2024 [facility] of Occupat ional Health - Occupational Stress [...] place to sleep or slept in a custodial (including now)? No 10/27/2023 Housing Stability Vital Sign Answer Chris e Recorded In the last 12 months, was t here a time when you were not able to pay the mortgage or rent on time? No 02/06/2025 In the past 12 months, how m any times have you moved where you were living? 0 02/06/2025 At any time in the past 12 m [facility], were you homeless or living in a custodial (including now)? No 02/06/2025 Sex and Gender [...] Visit [facility] [address] [place] [address] Mihaela Bruno NP [address] [place] [address] 09/19/2025 9:30 AM EDT Office Visit [facility] [address] [place] [id number] Tony Hernandez MD [address] [place] [address] documented as of this encounter Procedures Procedure Name Priority Date/Time Associated Diagnosis Comments TACROLIMUS LEVEL Routine 03/10/2025 8:05 AM EDT documented in this encounter Results * Tacrolimus level (03/10/2025 8:05 AM EDT) Blood Venous blood specimen / Unknown Tony Hernandez MD LAB BLOOD ORDERABLES Final Re sult documented in this encounter Visit Diagnoses Not on filedocumented in this encounter Additional Health Concerns Assessment Noted Time PHQ-9 Depression Total Score: 2 02/11/20 24 10:49 AM EDT documented as of this encounter Care Teams Utility Worker Production Relationship Specialty Start Date End Date Momo Verdugo MD [address] [place] [address] PCP - General Family Medicine 02/11/24 Momo Verdugo MD [address] [place] [address] PCP - [employer] 12/31/24 Mihaela Bruno NP [address] [place] [address] Nurse Practitioner Family Medicine 02/11/24 Kasandra Thomas DO [address] [place] [address] Referring Physician Neurology 02/17/24 documented as of this encounter
--- OUTSIDE RECORDS SUMMARY | 2025-05-02 06:34 | XMS_ITS | Encounter Summary ---
Author Organization [facility] enter Address [address] [place] [address] Care Team Providers Care Spin Tank Tender Name Role Phone Mihaela Bruno CNP Primary Care Provider [phone] Encounter Details Date Type Department Care Team (Late st Contact Info) Description 04/26/2025 Specialty Pharmacy [facility] [address] [address] [facility] Social History Tobacco Use Types Packs/Day Years [...] Izzy Kirkland RN documented in this encounter Progress Notes * Virginia Steele - 04/26/2025 10:29 AM EDT [facility]RE[facility]: Shipping/Pickup: Patient has affirmed needing a refill of the following medications for Shipment : Med Name: Mycophenolate 360 MG Med Name: Tacrolimus 0.5 MG Contact Info: Specialty Pharmacy [phone] documented in this encounter Plan of Treatment Upcoming Encounters Date Type Department Care Team (Late st Contact Info) Description 08/04/2025 10:00 AM EDT Office Visit [facility] [address] [place] [address] 08/11/2025 10:30 AM EDT Office Visit [facility] [place] [facility] [address] [place] [address] Rebeca Gutierrez APRN-ROB [address] [place] [address] documented as of this encounter Visit Diagnoses Not on filedocumented in this encounter Care Teams Spin Tank Tender Relationship Specialty Start Date End Date Mihaela Bruno CNP PCP - General 07/19/18 documented as of this encounter
--- OUTSIDE RECORDS SUMMARY | 2025-05-02 06:34 | XMS_ITS ---
Author Organization [facility] Address [address] [place] [address] [place] [address] Care Team Providers Care Survey Workers Supervisor Name Role Phone Mihaela Bruno CNP Primary Care Provider [phone] Multi-Organ Transplant Stable Status:Enrolled (Active) Start date:06/23/2024 Enrollment date:06/23/2024 Current support & services provided:Specialty Pharmacy - Clinical Management, Specialty Pharmacy - Refill Management Linked medications:Mycophenolate Sodium (Active), Tacrolimus (Active) Overview Prior therapies: n/a Organs: Kidney/liver Continued Care and Services Coordination
--- OUTSIDE RECORDS SUMMARY | 2025-05-02 06:34 | XMS_ITS | Encounter Summary ---
Author Organization [facility] enter Address [address] [place] [address] Care Team Providers Care Bog Worker Name Role Phone Mihaela Bruno CNP Primary Care Provider [phone] Evan White DO Unavailable [phone] Evan White DO Unavailable [phone] Reason for Visit * Reason Onset Date Comments Insurance 01/13/2024 Encounter Details Date Type Department Care Team (Late st Contact Info) Description 01/13/2024 Telephone Infectious Diseases Care [facility] [address] [address] Cristóbal Ko MD [address] [address] Insurance Social History Tobacco Use Types Packs/Day Years [...] hearing? Answer Date of Assessment Author No 08/28/2023 6:10 PM EDT Destiny Acosta RN * Are you blind or do you have serious difficulty seeing, even when wearing glasses? Answer Date of Assessment Author No 08/28/2023 6:10 PM EDT Destiny Acosta RN * Do you have serious difficulty walking or climbing stairs (5 years or older)? Answer Date of Assessment Author No 08/28/2023 6:10 PM EDT Destiny Acosta RN * Do you have difficulty dressing or bathing (5 yrs or older)? Answer Date of Assessment Author No 08/28/2023 6:10 PM EDT Destiny Acosta RN * Because of a physical, mental, or emotional condition, do you have difficulty doing errands alone such as visiting a doctor's office or shopping (5 yrs or older)? Answer Date of Assessment Author No 08/28/2023 6:10 PM EDT Destiny Acosta RN documented as of this encounter Mental Status * Because of a physical, mental, or emotional condition, do you have serious difficulty concentrating, remembering, or making decisions (5 yrs or older)? Answer Entry Date Author No 08/28/2023 6:10 PM EDT Destiny Acosta RN documented in this encounter Miscellaneous Notes * Telephone Encounter - Nael Cunningham - 01/13/2024 10:25 AM EST INFECTIOUS DISEASE Home Health Care Caller name: Esteban Contact number: [phone] Company name: patient Concern/Notes: Pt called concerning a pre-auth, please call back. [facility] [] If patient is on OPAT, route to INF OPAT [facility]AGE [facility] [] documented in this encounter Plan of Treatment Upcoming Encounters Date Type Department Care Team (Late st Contact Info) Description 08/04/2025 10:00 AM EDT Office Visit [facility] Trans[facility] [place] [facility] [address] [place] [address] 08/11/2025 10:30 AM EDT Office Visit [facility] Transplant [place] [facility] [address] [place] [address] Rebeca Gutierrez, DEEP-CANE FLUME WATCHER [address] [place] [address] documented as of this encounter Visit Diagnoses Not on filedocumented in this encounter Care Teams Bog 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 Start Date End Date Mihaela Bruno CNP PCP - General 07/19/18 [place] [address] [place] [address] Infectious Disease Infectious Disease 09/09/23 03/14/24 Evan White DO [address] [place] [address] Infectious Disease Infectious Disease 09/08/24 4 documented as of this encounter
--- OUTSIDE RECORDS SUMMARY | 2025-05-02 06:34 | XMS_ITS | Encounter Summary ---
Author Organization [facility] Address [address] [place] [address] Care Team Providers Care Technical Support Professional Name Role Phone Momo Verdugo MD Primary Care Provider [phone] Mihaela Bruno NP Unavailable [phone] MarthaNathanle DO Unavailable [phone] Momo Verdugo MD Unavailable Encounter Details Date Type Department Care Team (Late st Contact Info) Description 09/09/2024 Orders Only [facility] [address] [place] [address] Clementina Montesinos NP [address] [facility] [address] [place] [address] Social History Tobacco Use Types Packs/Day Years [...] week 02/11/2024 How often do you attend zoroastrian or sabianism serv ices? Never 02/11/2024 Do you belong to any clubs o r organizations such as zoroastrian groups, unions, fraternal or athletic groups, or [...] 0 02/11/2024 [facility] of Occupat ional [facility] - Occupational Stress Questionnaire Answer Date Recorded [...] place to sleep or slept in a alf (including now)? No 10/27/2023 Sex and Gender Information Value Date Recorded Sex Assigned at Not on file Legal Sex Male 7:07 PM EDT Gender Identity Not on file Sexual Orientation Not on file documented as of this encounter Plan of Treatment Upcoming Encounters Date Type Department Care Team (Late st Contact Info) Description 05/11/2025 10:00 AM EDT Office Visit [facility] [address] [place] [address] Mihaela Bruno NP [address] [place] [address] 09/19/2025 9:30 AM EDT Office Visit [facility] [address] [place] [address] Tony Hernandez MD [address] [place] [address] documented as of this encounter Procedures Procedure Name Priority Date/Time Associated Diagnosis Comments SCANNED LABS Routine 09/09/2024 9:22 AM EDT documented in this encounter Results * SCANNED LABS (09/09/2024 9:22 AM EDT) us Clementina Montesinos MANAGER MUSIC LAB CHG PERFORMABLES Final Resul t documented in this encounter Visit Diagnoses Not on filedocumented in this encounter Additional Health Concerns Assessment Noted Time PHQ-9 Depression Total Score: 2 02/11/20 10:49 AM EDT documented as of this encounter Care Teams Technical Support Professional Relationship Specialty Start Date End Date Momo Verdugo MD [address] [place] [address] PCP - General Family Medicine 02/11/24 Momo Verdugo MD [address] [place] [address] PCP - [employer] 12/31/24 Mihaela Bruno NP [address] [place] [address] Nurse Practitioner Family Medicine 02/11/24 Kasandra Thomas DO [address] [place] [address] Referring Physician Neurology 02/17/24 documented as of this encounter
--- OUTSIDE RECORDS SUMMARY | 2025-05-02 06:34 | XMS_ITS | Encounter Summary ---
Author Organization [facility] Address [address] [place] [address] Care Team Providers Care Erp Pm Name Role Phone Momo Verdugo MD Primary Care Provider Mihaela Bruno NP Unavailable [phone] Kasandra Thomas DO Unavailable [phone] Momo Verdugo MD Unavailable Reason for Visit * Reason Comments Med Refill Encounter Details Date Type Department Care Team (Late st Contact Info) Description 06/27/2024 Refill [facility] [address] [place] [address] Mihaela Bruno, BA [address] [place] [address] Other polyneuropathy Social History Tobacco Use Types Packs/Day Years [...] week 02/11/2024 How often do you attend episcopal or tenriism serv ices? Never 02/11/2024 Do you belong [...] Recorded Patient Health Questionnaire-2 Score 0 02/11/2024 [facility] of Occupat ional Health - Occupational Stress [...] place to sleep or slept in a fpc (including now)? No 10/27/2023 Sex and Gender Information Value Date Recorded Sex Assigned at Not on file Legal Sex Male 7:07 PM EDT Gender Identity Not on file Sexual Orientation Not on file documented as of this encounter Plan of Treatment Upcoming Encounters Date Type Department Care Team (Late st Contact Info) Description 05/11/2025 10:00 AM EDT [facility] [address] [place] [address] Mihaela Bruno NP [address] [place] [address] 09/19/2025 9:30 AM EDT Office Visit [facility] [address] [place] [phone] Tony Hernandez MD [address] [place] [address] documented as of this encounter Visit Diagnoses Diagnosis Other polyneuropathy documented in this encounter Additional Health Concerns Assessment Noted Time PHQ-9 Depression Total Score: 2 02/11/20 10:49 AM EDT documented as of this encounter Care Teams Erp Pm Relationship Specialty Start Date End Date Momo Verdugo MD [address] [place] [address] PCP - General Family Medicine 02/11/24 Momo Verdugo MD [address] [place] [address] PCP - [employer]et[employer] 12/31/24 Mihaela Bruno NP [address] [place] [address] Nurse Practitioner Family Medicine 02/11/24 Kasandra Thomas DO [address] [place] [address] Referring Physician Neurology 02/17/24 documented as of this encounter
--- OUTSIDE RECORDS SUMMARY | 2025-05-02 06:34 | XMS_ITS | Encounter Summary ---
Author Organization [facility] Address [address] [place] [address] Care Team Providers Care Fur Finisher Name Role Phone Momo Verdugo MD Primary Care Provider [phone] Mihaela Bruno GLASSWARE SELECTOR Unavailable [phone] Kasandra Thomas DO Unavailable [phone] Momo Verdugo MD Unavailable Encounter Details Date Type Department Care Team (Late st Contact Info) Description 09/05/2024 Orders Only [facility] [address] [place] [address] Mihaela Bruno NP [address] [place] [place] [address] Social History Tobacco Use Types Packs/Day Years [...] week 02/11/2024 How often do you attend lutheran or moravian serv ices? Never 02/11/2024 Do you belong to any clubs o r organizations such as lutheran groups, unions, fraternal or athletic groups, or [...] Recorded Patient Health Questionnaire-2 Score 0 02/11/2024 [facility] of Occupat ional Health - [...] place to sleep or slept in a assisted (including now)? No 10/27/2023 Sex and Gender Information Value Date Recorded Sex Assigned at Not on file Legal Sex Male 7:07 PM EDT Gender Identity Not on file Sexual Orientation Not on file documented as of this encounter Plan of Treatment Upcoming Encounters Date Type Department Care Team (Late st Contact Info) Description 05/11/2025 10:00 AM EDT [facility] [address] [place] [address] Mihaela Bruno NP [address] [place] [address] 09/19/2025 9:30 AM EDT Office Visit [facility] [address] [place] [phone] Tony Hernandez MD [address] [place] [address] documented as of this encounter Procedures Procedure Name Priority Date/Time Associated Diagnosis Comments XR DEXA AXIAL SKELETON* Routine 09/05/2024 11:52 AM EDT documented in this encounter Results * XR DEXA AXIAL SKELETON* (09/05/2024 11:52 AM EDT) Anatomical Region Laterality Modality Radiographic Radha ging Mihaela Bruno GLASSWARE SELECTOR IMG XR PROCEDURES Final Result documented in this encounter Visit Diagnoses Not on filedocumented in this encounter Additional Health Concerns Assessment Noted Time PHQ-9 Depression Total Score: 2 02/11/20 10:49 AM EDT documented as of this encounter Care Teams Fur Finisher Relationship Specialty Start Date End Date Momo Verdugo MD [address] [place] [place] [address] PCP - General Family Medicine 02/11/24 Momo Verdugo MD [address] [place] [address] PCP - [employer]et[employer] 12/31/24 Mihaela Bruno NP [address] [place] [address] Nurse Practitioner Family Medicine 02/11/24 Kasandra Thomas DO [address] [place] [address] Referring Physician Neurology 02/17/24 documented as of this encounter
--- OUTSIDE RECORDS SUMMARY | 2025-05-02 06:34 | XMS_ITS | Encounter Summary ---
Author Organization [facility] Address [address] [place] [address] Care Team Providers Care Master Coastal Waters Name Role Phone Momo Verdugo MD Primary Care Provider [phone] Mihaela Bruno TIMBER TRIMMER Unavailable [phone] Kasandra Thomas DO Unavailable [phone] Momo Verdugo MD Unavailable Encounter Details Date Type Department Care Team (Late st Contact Info) Description 07/26/2024 Orders Only [facility] [address] [place] [address] Mihaela Bruno NP [address] [place] [address] Social History Tobacco Use Types Packs/Day Years [...] week 02/11/2024 How often do you attend moravian or hindu serv ices? Never 02/11/2024 Do you belong to any clubs o r organizations such as moravian groups, unions, fraternal or athletic groups, or [...] Recorded Patient Health Questionnaire-2 Score 0 02/11/2024 [facility] of Occupat ional Health - Occupational Stress [...] place to sleep or slept in a fci (including now)? No 10/27/2023 Sex and Gender Information Value Date Recorded Sex Assigned at Not on file Legal Sex Male 7:07 PM EDT Gender Identity Not on file Sexual Orientation Not on file documented as of this encounter Plan of Treatment Upcoming Encounters Date Type Department Care Team (Late st Contact Info) Description 05/11/2025 10:00 AM EDT [facility] [address] [place] [address] Mihaela Bruno NP [address] [place] [address] 09/19/2025 9:30 AM EDT Office Visit [facility] [address] [place] [phone] Tony Hernandez MD [address] [place] [address] documented as of this encounter Procedures Procedure Name Priority Date/Time Associated Diagnosis Comments MR ABDOMEN WO CONTRAST Routine 07/26/2024 11:05 AM EDT documented in this encounter Results * MR abdomen wo contrast (07/26/2024 11:05 AM EDT) Anatomical Region Laterality Modality Abdomen Magnetic Resonan ce Mihaela Bruno TIMBER TRIMMER IMG MRI PROCEDURES Final Result documented in this encounter Visit Diagnoses Not on filedocumented in this encounter Additional Health Concerns Assessment Noted Time PHQ-9 Depression Total Score: 2 02/11/20 10:49 AM EDT documented as of this encounter Care Teams Master Coastal Waters Relationship Specialty Start Date End Date Momo Verdugo MD [address] [place] [address] PCP - General Family Medicine 02/11/24 Momo Verdugo MD [address] [place] [address] PCP - [employer] 12/31/24 Mihaela Bruno NP [address] [place] [place] [address] Nurse Practitioner Family Medicine 02/11/24 Kasandra Thomas DO [address] [place] [address] Referring Physician Neurology 02/17/24 documented as of this encounter
--- OUTSIDE RECORDS SUMMARY | 2025-05-02 06:34 | XMS_ITS | Encounter Summary ---
Author Organization [facility] Address [address] [place] [address] Care Team Providers Care Outreach Assistant Name Role Phone Momo Verdugo MD Primary Care Provider [phone] Mihaela Bruno YARN SKEINS EXAMINER Unavailable [phone] Kasandra Thomas DO Unavailable [phone] Momo Verdugo MD Unavailable Reason for Visit * Reason Onset Date Comments Med Refill 02/20/2025 Encounter Details Date Type Department Care Team (Late st Contact Info) Description 02/20/2025 Refill [facility] [address] [place] [address] Mihaela Bruno, YARN SKEINS EXAMINER [address] [place] [address] Gastroesophageal reflux disease, unspecified whether esophagitis present Social History Tobacco Use Types Packs/Day Years [...] week 02/06/2025 How often do you attend adventist or denominational serv ices? Never 02/06/2025 Do you belong to any clubs o r organizations such as adventist groups, unions, fraternal or athletic groups, or [...] Recorded Patient Health Questionnaire-2 Score 0 02/11/2024 [facility] - Occupational Stress [...] in a intermediate (including now)? No 10/27/2023 Housing Stability Vital Sign Answer Chris e Recorded In the last 12 months, was t here a time when you were not able to pay the mortgage or rent on time? No 02/06/2025 In the past 12 months, how m any times have you moved where you were living? 0 02/06/2025 At any time in the past 12 m [facility], were you homeless or living in a intermediate (including now)? No 02/06/2025 Sex and Gender [...] Visit [facility] [address] [place] [address] Mihaela Bruno NP [address] [place] [address] 09/19/2025 9:30 AM EDT Office Visit [facility] [address] [place] [address] Tony Hernandez MD [address] [place] [address] documented as of this encounter Visit Diagnoses Diagnosis Gastroesophageal reflux disease, unspecified whether esophagitis present documented in this encounter Additional Health Concerns Assessment Noted Time PHQ-9 Depression Total Score: 2 02/11/20 10:49 AM EDT documented as of this encounter Care Teams Outreach Assistant Relationship Specialty Start Date End Date Momo Verdugo MD [address] [place] [phone] PCP - General Family Medicine 02/11/24 Momo Verdugo MD [address] [place] [address] PCP - [employer] 12/31/24 Mihaela Bruno NP [address] [place] [address] Nurse Practitioner Family Medicine 02/11/24 Kasandra Thomas DO [address] [place] [address] Referring Physician Neurology 02/17/24 documented as of this encounter
--- OUTSIDE RECORDS SUMMARY | 2025-05-02 06:34 | XMS_ITS | Encounter Summary ---
Author Organization [facility] Address [address] [place] [address] Care Team Providers Care Consumer Safety Inspector Name Role Phone Momo Verdugo MD Primary Care Provider [phone] Mihaela Bruno PRESSURE TESTING TECHNICIAN Unavailable [phone] MarthaKasandra clark DO Unavailable [phone] Momo Verdugo MD Unavailable Reason for Visit * Reason Onset Date Comments Med Refill 01/31/2025 Encounter Details Date Type Department Care Team (Late st Contact Info) Description 01/31/2025 Refill [facility] [address] [place] [address] Mihaela Bruno, PRESSURE TESTING TECHNICIAN [address] [place] [address] Primary hypertension (CMS/HCC) Social History Tobacco Use Types Packs/Day Years [...] week 02/11/2024 How often do you attend quaker or jewish serv ices? Never 02/11/2024 Do you belong to any clubs o r organizations such as quaker groups, unions, fraternal or athletic groups, or [...] Recorded Patient Health Questionnaire-2 Score 0 02/11/2024 [facility] Occupat ional Health - Occupational Stress [...] in a mcc (including now)? No 10/27/2023 Sex and Gender Information Value Date Recorded Sex Assigned at Not on file Legal Sex Male 7:07 PM EDT Gender Identity Not on file Sexual Orientation Not on file documented as of this encounter Plan of Treatment Upcoming Encounters Date Type Department Care Team (Late st Contact Info) Description 05/11/2025 10:00 AM EDT [facility] [address] [place] [phone] Mihaela Bruno NP [address] [place] [address] 09/19/2025 9:30 AM EDT Office Visit [facility] [address] [place] [id number] Tony Hernandez MD [address] [place] [address] documented as of this encounter Visit Diagnoses Diagnosis Primary hypertension (CMS/HCC) Unspecified essential hypertension documented in this encounter Additional Health Concerns Assessment Noted Time PHQ-9 Depression Total Score: 2 02/11/20 10:49 AM EDT documented as of this encounter Care Teams Consumer Safety Inspector Relationship Specialty Start Date End Date Momo Verdugo MD [address] [place] [address] PCP - General Family Medicine 02/11/24 Momo Verdugo MD [address] [place] [address] PCP - [employer] 12/31/24 Mihaela Bruno NP [address] [place] [address] Nurse Practitioner Family Medicine 02/11/24 Kasandra Thomas DO [address] [place] [address] Referring Physician Neurology 02/17/24 documented as of this encounter
--- OUTSIDE RECORDS SUMMARY | 2025-05-02 06:34 | XMS_ITS | Clinical Summary ---
Author Organization [facility] Address [address] [place] [address] Care Team Providers Care Director Of [employer] Name Role Phone Momo Verdugo MD Primary Care Provider [phone] Mihaela Bruno VENETIAN BLIND CLEANER Unavailable [phone] Kasandra Thomas DO Unavailable [phone] Momo Verdugo MD Unavailable Allergies Active Allergy Reactions Criticality Noted Date Comments Shellfish-Derived Products Swelling High 9 Patient with lip and tongue swelling. Medications aspirin 81 MG chewable tablet Chew 1 tablet Daily Active mycophenolate (Myfortic) 360 MG EC tablet Take 1 tablet by mouth every 12 (twelve) hours 09/10/20 23 Active ondansetron (Zofran) 4 MG tablet Take 1 tablet by mouth every 8 (eight) hours if needed for nausea or vomiting Active polyethylene glycol, PEG, 3350 (Glycolax) 17 GM/SCOOP powder Take 17 g by mouth in the morning. Active tacrolimus (Prograf) 0.5 MG capsuleIndications :Liver Transplant Status,Renal Transplant Status Take 0.2 mg by mouth every 12 (twelve) hours 5 days a week (Thursday-Thursday) 03/10/20 23 Active sulfamethoxazole-t rimethoprim (Bactrim DS) 800-160 MG per tablet Take 1 tablet by mouth 3 (three) times a week 01/22/20 24 Active torsemide (Demadex) 20 MG tablet Take 20 mg by mouth in the morning. 01/22/20 24 Active Prograf 0.2 MG packIndications:Li suraj Transplant Status Take 0.5 mg by mouth every 12 (twelve) hours 09/15/20 Active melatonin [address] 3 mg under the tongue at bedtime 09/08/20 Active tadalafil (Cialis) 10 MG tablet Take 10 mg by mouth Daily as needed for erectile dysfunction Active tamsulosin (Flomax) 0.4 MG 24 hr capsule 0.4 mg 11/22/20 Active amLODIPine (Norvasc) 5 MG tabletIndications: Primary hypertension (CMS/HCC) Take 1 tablet (5 mg) by mouth Daily 90 tablet 1 02/09/20 25 025 Active gabapentin (Neurontin) 400 MG capsuleIndications :Other polyneuropathy Take 1 capsule (400 mg) by mouth at bedtime 90 capsule 1 02/09/20 25 025 Active famotidine (Pepcid) 20 MG tabletIndications: Gastroesophageal reflux disease, unspecified whether esophagitis present Take 1 tablet (20 mg) by mouth in the morning and 1 tablet (20 mg) before bedtime. 180 tablet 1 02/09/20 025 Active allopurinol (Zyloprim) 100 MG tabletIndications: Elevated blood uric acid level Take 2 tablets (200 mg) by mouth Daily Take 2 tablets by mouth in the morning. 180 tablet 1 02/25/20 025 Active ergocalciferol (Vitamin D-2) 1.25 MG (03285 UT) capsuleIndications :Vitamin D deficiency Take 1 capsule (1.25 mg) by mouth 1 (one) time per week 12 capsule 1 03/21/20 025 Active alendronate (Fosamax) 70 MG tabletIndications: Other osteoporosis without current pathological fracture Take 1 tablet (70 mg) by mouth every 7 (seven) days 1 tablet weekly on an empty stomach, remain upright for at least 30 minutes 12 tablet 1 03/21/20 025 Active Active Problems Problem Noted Date Diagnosed Date Elevated blood uric acid level 02/24/2025 History of kidney transplant 02/08/2025 Assessment & Plan (02/08/2025 6:11 AM EDT): Continues with [facility] transplant team BPH with urinary obstruction 02/08/2025 Erectile dysfunction 02/08/2025 History of liver transplant 02/08/2025 Assessment & Plan (02/08/2025 6:12 AM EDT): Continues with [facility] transplant team Other osteoporosis without current pathological fracture 09/08/2024 Overview (09/08/2024): DEXA 09/06/2024: -2.5 osteoporosis Assessment & Plan (02/08/2025 6:09 AM EDT): 09/22 DEXA scan is -2.5 osteoprosis Did receive contact back from [facility] regarding treatment, after discussion with them, as well as Dr Verdugo, pt was referred to Endo to help with appropriate treatment plan given his hx of : kidney/liver transplant, as well as kidney stones Assessment & Plan (11/07/2024 2:56 PM EST): DEXA scan is -2.5 osteoprosis Letter sent (10/13/24)to [facility] regarding best therapy for this, no response as of yet Prostate cancer screening 08/23/2024 Overview (08/29/2024): 08/29/24 0.85 Dysuria 08/23/2024 Assessment & Plan (08/23/2024 9:28 AM EDT): Check urine and culture Other constipation 08/23/2024 Decreased urine stream 08/23/2024 Overweight (BMI 25.0-29.9) 04/18/2024 Eczema 02/25/2024 Weakness generalized 02/18/2024 Portal hypertension 02/11/2024 Assessment & Plan (11/07/2024 7:09 AM EST): Stable, continues w hepatology Assessment & Plan (08/23/2024 8:56 AM EDT): Ginette, continues w hepatology Left carotid bruit 02/11/2024 Overview (09/05/2024): Carotid US: 08/28/2022: no significant blockage 09/05/2024: less than 50% bilat Assessment & Plan (08/23/2024 9:29 AM EDT): Will order updated US , cont statin Assessment & Plan (04/18/2024 10:07 AM EDT): Remains present, no symptoms Last US 2021 Diastolic dysfunction 02/11/2024 Complication of AV dialysis fistula 02/11/2024 Assessment & Plan (02/11/2024 12:44 PM EDT): This was disabled during his last admission to [facility], as it was causing heart failure symptoms Umbilical hernia 02/11/2024 Cirrhosis of liver 02/11/2024 Assessment & Plan (08/23/2024 6:28 AM EDT): S/p liver transplant Follows yearly with Hepatology Right nephrolithiasis 02/11/2024 Hyperlipidemia 02/11/2024 Encounter for subsequent [facility] wellness visit (AWV) in Medicare patient 02/11/2024 Assessment & Plan (02/11/2024 12:47 PM EDT): Reviewed Ht/Wt/BMI Recommend eye exam yearly Recommend dental exams twice a year Balance work/leisure activities Exercises is recommended most days of the week (appropriate as chronic conditions allow) Follow up yearly and prn Heart failure, diastolic, acute 01/20/2024 Assessment & Plan (02/13/2024 8:05 AM EDT): Recent hospitalization at [facility] in 12/2023 complications to fistula it was disabled Feeling some better, still weak Result of fistula causing heart failure Assessment & Plan (02/13/2024 8:02 AM EDT): Recent hospitalization at [facility] in 12/2023 complications to fistula it was disabled Feeling some better Pleural effusion on right 01/16/2024 Insomnia 01/06/2024 Hypertension 01/06/2024 Assessment & Plan (02/08/2025 6:07 AM EDT): Please check blood pressure daily and record DASH diet Limit caffeine Take medication as directed Contact office if chest pain, pressure, dizziness, shortness of breath, swelling legs Recommend slow position changes Current meds: amlodipine, Assessment & Plan (11/07/2024 7:10 AM EST): Please check blood pressure daily and record DASH diet Limit caffeine Take medication as directed Contact office if chest pain, pressure, dizziness, shortness of breath, swelling legs Recommend slow position changes Current meds: amlodipine, Assessment & Plan (08/23/2024 8:55 AM EDT): At goal , no med dose changes Assessment & Plan (04/18/2024 10:08 AM EDT): Stable today, no med changes Assessment & Plan (01/06/2024 9:47 AM EST): No change in meds Check echo Bilateral lower extremity edema 01/06/2024 Assessment & Plan (02/08/2025 6:08 AM EDT): Current medication: torsemide Limit sodium, elevate legs when you can, compression stockings if needed Assessment & Plan (08/23/2024 9:29 AM EDT): Stable, cont with torsemide Assessment & Plan (02/11/2024 12:44 PM EDT): Stable at this time, weight is lower as well, suspect was related to heart failure Shortness of breath 01/06/2024 Assessment & Plan (01/06/2024 9:47 AM EST): Check ECHO Nausea 12/10/2023 Peripheral neuropathy 12/03/2023 Assessment & Plan (02/08/2025 6:06 AM EDT): Current medication is gabapentin [facility] reviewed Abdominal pain, generalized 11/03/2023 Assessment & Plan (08/23/2024 9:28 AM EDT): Reviewed labs and MRI report Will refer to GI as well Anemia, unspecified 11/03/2023 Stage 4 chronic kidney disease 11/03/2023 Complication of dialysis access insertion 2022 Dysfunction of papillary muscle 11/03/2023 Blood glucose elevated 11/03/2023 Gastroesophageal reflux disease 11/03/2023 Assessment & Plan (02/08/2025 6:14 AM EDT): Recommendations: freq small meals, nothing to eat or drink at least 2 hours prior to bed, limit caffeine, alcohol, as well as spicy foods Meds to limit or avoid if possible: NSAIDS Elevate HOB if possible Current med: pepcid Assessment & Plan (08/23/2024 9:29 AM EDT): Continue with use of H2 melissa Will refer to GI Generalized anxiety disorder 11/03/2023 Panic disorder without agoraphobia 11/03/2023 Obesity (BMI 30-39.9) 11/03/2023 Assessment & Plan (02/08/2025 6:10 AM EDT): Discussed with patient their BMI (actual, verses recommended). We have also discussed lifestyle modifications: attempts to perform physical activity as chronic conditions allow, also to monitor dietary intake: increasing protein/fruits/veggies and lowering carb intake (unless contraindicated). Limit sodas, juices, and sugary drinks. Assessment & Plan (11/07/2024 3:03 PM EST): Discussed with patient their BMI (actual, verses recommended). We have also discussed lifestyle modifications: attempts to perform physical activity as chronic conditions allow, also to monitor dietary intake: increasing protein/fruits/veggies and lowering carb intake (unless contraindicated). Limit sodas, juices, and sugary drinks. Goal of 10 pounds weight loss by next visit Assessment & Plan (11/03/2023 9:26 AM EST): Recommend weight loss DARLENE (obstructive sleep apnea) 11/03/2023 Overview (11/21/2023): Sleep titration study on 11/17/23 CPAP of 10cm, ramp time 20 with humidification Assessment & Plan (02/08/2025 8:59 AM EDT): You have a diagnosis of obstructive sleep apnea. It is recommended that you wear your PAP device any time while in bed sleeping. Not using the PAP device can increase your risk of elevated/uncontrolled high blood pressure, atrial fibrillation, heart attack, stroke, or sudden . Compliance with PAP: yes How many hours of use per night: 6 Do you feel more refreshed in the morning: not really Company that supplies your machine and tubing/filters etc: not sure Doctor that manages your DARLENE: Martha Assessment & Plan (08/23/2024 9:28 AM EDT): Compliant with PAP Assessment & Plan (01/06/2024 9:45 AM EST): Continue with sleep med provider Assessment & Plan (11/03/2023 9:27 AM EST): Has to get a sleep titration study completed Kidney stones 11/03/2023 Assessment & Plan (11/07/2024 2:56 PM EST): Would caution use of calcium d/t this Assessment & Plan (11/03/2023 9:11 AM EST): Has been waiting on refill with [facility], still nothing, will refill flomax Tremor 11/03/2023 Assessment & Plan (01/06/2024 9:46 AM EST): I have advised pt to contact insurance company to see if they can provide a PA for pt to see neurologist in [facility] Assessment & Plan (11/03/2023 9:24 AM EST): Is bothered by these tremors, is not doing things in life that bring him rosemary such as hunting He has been told that this is side effect from anti rejection meds Will refer to local neurology Immunodeficiency, unspecified 11/03/2023 Assessment & Plan (02/08/2025 6:10 AM EDT): Double transplant at [facility] over 2 years ago (liver and kidney) Histoplasmosis dx in 08/22 Also sees transplant team yearly Assessment & Plan (11/07/2024 2:53 PM EST): Double transplant at [facility] over 2 years ago (liver and kidney) Histoplasmosis dx in 08/22, continue to follow with ID Also sees transplant team yearly Assessment & Plan (04/18/2024 10:06 AM EDT): Double transplant at [facility] over 2 years ago (liver and kidney) Histoplasmosis dx in 08/22, continue to follow with ID Also sees transplant team yearly, next due in May 2024 Assessment & Plan (02/13/2024 8:01 AM EDT): Double lung transplant at [facility] over 2 years ago Histoplasmosis dx in 08/22, needs to follow with ID Assessment & Plan (02/11/2024 12:46 PM EDT): As per transplant services for monitoring and medication Histoplasmosis 09/10/2023 Assessment & Plan (04/18/2024 10:09 AM EDT): Continue with ID and therapy per their recommendations Assessment & Plan (02/13/2024 8:00 AM EDT): He is s/p double organ transplant (liver and kidney) now over 2 years ago. He received this transplant at [facility] and his transplant team is at [facility]. In July 2023 he was hospitalized for an infection of Histoplasmosis, his care was given at [facility], since this was where his transplant team is at. He has an upcoming appt with infectious disease , but is being told that the provider is out of network. It appears that many of the providers he sees at [facility] are out of network. I am including this documentation to ask for approval for him to see these providers. Normally I would be willing to find a provider in network, however, due to the complexity of this patient's case having had his double organ transplant at [facility], his ongoing complications that he is experiencing as a result of those co morbidities (anti rejection medications etc) I feel medically this is in his best interest to continue to see the team of specialist that are familiar with his case. He is scheduled for a telehealth appt with Dr. Cristóbal Ko on 03/01/24. His NPI number is [id number], [facility] physician NPI number is [id number] Assessment & Plan (02/13/2024 8:10 AM EDT): Left a message for his it infrastructure manager at [facility] ([phone]). He is having trouble getting an approval for an fu appt with ID at [facility]-out of network provider. 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 He received this transplant at [facility] and his transplant team is at [facility]. In July 2023 he was hospitalized for an infection of Histoplasmosis, his care was given at [facility], since this was where his transplant team is at. He has an upcoming appt with infectious disease , but is being told that the provider is out of network. It appears that many of the providers he sees at [facility] are out of network. I am including this documentation to ask for approval for him to see these providers. Normally I would be willing to find a provider in network, however, due to the complexity of this patient's case having had his double organ transplant at [facility], his ongoing complications that he is experiencing as a result of those co morbidities (anti rejection medications etc) I feel medically this is in his best interest to continue to see the team of specialist that are familiar with his case. He is scheduled for a telehealth appt with Dr. Cristóbal Ko on 03/01/24. His NPI number is [id number], [facility] physician NPI number is [id number] a telemed visit with ID on 03/01/24, have had difficulty with [employer] getting this approved 02/12/24 I did speak with the it infrastructure manager for the patient today at 15;13pm, I will continue working on this getting approved. Over 30 minutes spent with [facility] and [facility] medical center attempting to get to correct NPI numbers etc. No resolution to this situation I am going to place a referral for our referrals department to try to get taken care of. Resolved Problems Problem Noted Date Diagnosed Date Resolved Date GI bleeding 02/11/2024 02/11/2024 Pancreatitis 02/11/2024 02/11/2024 Alcoholic cirrhosis of liver with ascites 02/11/2024 02/11/2024 Acute kidney failure 11/03/2023 024 Gastrointestinal bleeding 11/03/2023 Organ transplant 11/03/2023 02/08/2025 Overview (02/11/2024): Kidney and liver Assessment & Plan (04/18/2024 10:10 AM EDT): Kidney and liver, cont with transplant team Assessment & Plan (02/13/2024 8:10 AM EDT): Both kidney and liver Liver transplant status 01/28 Overview (11/03/2023): Kidney and liver Assessment & Plan (02/11/2024 12:46 PM EDT): Continue with transplant team at [facility] Encounters Date Type Department Care Team Description 03/21/2025 9:40 AM EDT Office Visit [facility] [address] [place] [phone] Tony Hernandez MD Other osteoporosis without current pathological fracture (Primary Dx); Organ transplant; 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); Vitamin D deficiency; Liver transplant status 03/21/2025 Bamboo flowsheet [facility] [address] [place] [id number] Tony Hernandez MD 03/14/2025 Travel 03/10/2025 Orders Only [facility] [address] [place] [phone] Tony Hernandez MD 03/08/2025 Clinisync Result Encounter [facility] External Department Unsolicited Provider, Generic External Data 03/07/2025 Orders Only [facility] [address] [place] [address] Tony Hernandez MD 03/07/2025 Clinisync Result Encounter [facility] External Department Unsolicited Provider, Generic External Data 02/28/2025 9:10 AM EDT Office Visit [facility] [address] [place] [address] Tony Hernandez MD Other osteoporosis without current pathological fracture; Liver transplant status; Organ transplant 02/28/2025 Bamboo flowsheet [facility] [address] [place] [address] Tony Hernandez MD 02/24/2025 Refill [facility] [address] [place] [id number] Mihaela Bruno NP Elevated blood uric acid level (Primary Dx) 02/21/2025 Travel 02/20/2025 Telephone [facility] [address] [place] [phone] Momo Verdugo MD Med Refill 02/20/2025 Refill [facility] [address] [place] [phone] Mihaela Bruno NP Gastroesophageal reflux disease, unspecified whether esophagitis present 02/08/2025 8:40 AM EDT Office Visit [facility] [address] [place] [phone] Mihaela Bruno NP Primary hypertension (CMS/HCC) (Primary Dx); DARLENE (obstructive sleep apnea); Bilateral lower extremity edema; Other osteoporosis without current pathological fracture (CMS/HCC); Obesity (BMI 30-39.9); Immunodeficiency, unspecified (CMS/HCC); History of kidney transplant (CMS/HCC); History of liver transplant (CMS/HCC) ; Gastroesophageal reflux disease, unspecified whether esophagitis present; Other polyneuropathy 02/08/2025 Bamboo flowsheet [facility] [address] [place] [phone] Mihaela Bruno NP 02/06/2025 Travel 02/01/2025 Refill [facility] [address] [place] [phone] Mihaela Bruon NP Primary hypertension ([facility]) 01/31/2025 Refill [facility] [address] [place] [phone] Mihaela Bruno NP Primary hypertension ([facility]) 01/31/2025 Refill [facility] [address] [place] [phone] Mihaela Bruno NP Primary hypertension ([facility]) 01/31/2025 Clinisync Result Encounter [facility] External Department Unsolicited Provider, Generic External Data from Last 3 Months Immunizations Immunization Administration Dates Next Due Influenza, Unspecified 11/03/2023,2021,09/30/2021,2019 Influenza, injectable, MDCK, preservative free, quadrivalent 11/03/2023 Influenza, injectable, quadrivalent 10/16/2020 Influenza, injectable, quadr ivalent, preservative free 08/28/2022,09/30/2021 Influenza, seasonal, injecta ble, preservative free 11/01/2024 Moderna SARS-CoV-2 50mcg/0.5 mL Booster 11/03/2023 Family History Medical History Relation Name Comments Diabetes Brother Diabetes Father Stroke Father Diabetes Mother Stroke Mother Diabetes Other Heart disease Other Hyperlipidemia Other Hypertension Other Stroke Other Relation Name Status Comments Brother Father Mother Other Social History Tobacco Use Types Packs/Day Years Used Date Smoking Tobacco: Former Cigarettes Q uit: 2018 Smokeless Tobacco: Never Tobacco Cessation:Counseling Given: Not [...] week 02/06/2025 How often do you attend pentecostalism or religion serv ices? Never 02/06/2025 Do you belong to any clubs o r organizations such as pentecostalism groups, unions, fraternal or athletic groups, or [...] Recorded Patient Health Questionnaire-2 Score 0 02/11/2024 [facility] - Occupational Stress Questionnaire Answer Date Recorded [...] a nursing home (including now)? No 10/27/2023 Housing Stability Vital Sign Answer Chris e Recorded In the last 12 months, was t here a time when you were not able to pay the mortgage or rent on time? No 02/06/2025 In the past 12 months, how m any times have you moved where you were living? 0 02/06/2025 At any time in the past 12 m [facility], were you homeless or living in a nursing home (including now)? No 02/06/2025 Sex and Gender Information Value Date Recorded Sex Assigned at Not on file Legal Sex Male 7:07 PM EDT Gender Identity Not on file Sexual Orientation Not on file Last Filed Vital Signs Vital Sign Reading Time Taken Comments Blood Pressure 138/90 02/28/2025 9:07 AM EDT Pulse 80 03/21/2025 9:43 AM EDT Temperature 36.7 C (98 F) 02/08/2025 8:44 AM EDT Respiratory Rate 18 03/21/2025 9:43 AM EDT Oxygen Saturation 95% 03/21/2025 9:43 AM EDT Inhaled Oxygen Concentration - - Weight 95.3 kg (210 lb) 03/21/2025 9:43 AM EDT Height 170.2 cm (5' 7 ) 03/21/2025 9:43 AM EDT Body Mass Index 32.89 03/21/2025 9:43 AM EDT Plan of Treatment Upcoming Encounters Date Type Department Care Team (Late st Contact Info) Description 05/11/2025 10:00 AM EDT Office Visit [facility] [address] [place] [address] Mihaela Bruno NP [address] [place] [address] 09/19/2025 9:30 AM EDT Office Visit [facility] [address] [place] [phone] Tony Hernandez MD [address] [place] [address] Health Maintenance Due Date Last Done Comments CT Colonography 1971 FIT-DNA 1971 FIT 1971 FOBT 1971 Sigmoidoscopy 1971 Medicare Annual Wellness (AWV) 02/10/2025 02/11/2024 , 02/11/2024 Colonoscopy 12/26/2034 12/26/2024, 12/01, 09/20/2019, Additional history exists Colorectal Cancer Screening 12/26/2034 Influenza Vaccine Completed 11/01/2024, , 11/03/2023, Additional history exists Procedures Procedure Name Priority Date/Time Associated Diagnosis Comments TACROLIMUS LEVEL Routine 03/10/2025 8:05 AM EDT PTH, INTACT WITHOUT CALCIUM Routine 03/08/2025 11:08 AM EDT Other osteoporosis without current pathological fracture CALCIUM, 24 HOUR URINE (W/O CREATININE) Routine 03/08/2025 10:07 AM EDT Other osteoporosis without current pathological fracture CREATININE, 24 HOUR URINE Routine 03/08/2025 10:07 AM EDT Other osteoporosis without current pathological fracture SODIUM W/O CREATININE, 24 HOUR URINE Routine 03/08/2025 10:07 AM EDT Other osteoporosis without current pathological fracture SODIUM 24 HOUR URINE Routine 03/08/2025 8:00 AM EDT CALCIUM 24 HOUR URINE Routine 03/08/2025 8:00 AM EDT CREATININE 24 HOUR URINE Routine 03/08/2025 8:00 AM EDT COMPREHENSIVE METABOLIC PANEL Routine 03/07/2025 10:17 AM EDT ALL MISCELLANEOUS TEST Routine 7:35 AM EDT [facility] PTH, INTRAOPERATIVE Routine 03/07/2025 7:35 AM EDT ALL ALBUMIN Routine 03/07/2025 7:35 AM EDT [facility] ALKALINE PHOSPHATASE Routine 03/07/2025 7:35 AM EDT [facility] ALT Routine 03/07/2025 7:35 AM EDT [facility] AST Routine 03/07/2025 7:35 AM EDT ALL GAMMA GLUTAMYL TRANSPEPTIDASE Routine 03/07/2025 7:35 AM EDT METRO BILIRUBIN, DIRECT Routine 03/07/2025 7:35 AM EDT ALL BILIRUBIN,TOTAL Routine 03/07/2025 7 :35 AM EDT ALL MAGNESIUM Routine 03/07/2025 7:35 AM EDT ALL PHOSPHOROUS Routine 03/07/2025 7:35 AM EDT ALL BASIC METABOLIC PANEL Routine 03/07/2025 7:35 AM EDT ALL CBC WITH AUTO DIFF Routine 7:35 AM EDT ALL MISCELLANEOUS TEST Routine 6:55 AM EST ALL ALBUMIN Routine 01/31/2025 6:55 AM EST [facility] ALKALINE PHOSPHATASE Routine 01/31/2025 6:55 AM EST [facility] ALT Routine 01/31/2025 6:55 AM EST [facility] AST Routine 01/31/2025 6:55 AM EST ALL GAMMA GLUTAMYL TRANSPEPTIDASE Routine 01/31/2025 6:55 AM EST METRO BILIRUBIN, DIRECT Routine 01/31/2025 6:55 AM EST ALL BILIRUBIN,TOTAL Routine 01/31/2025 6 :55 AM EST ALL MAGNESIUM Routine 01/31/2025 6:55 AM EST ALL PHOSPHOROUS Routine 01/31/2025 6:55 AM EST ALL BASIC METABOLIC PANEL Routine 01/31/2025 6:55 AM EST ALL CBC WITH AUTO DIFF Routine 6:55 AM EST COLONOSCOPY Routine 12/26/2024 1:58 PM EST from Last 3 Months or Most Recently Relevant to Health Maintenance Results * Tacrolimus level (03/10/2025 8:05 AM EDT) Blood Venous blood specimen / Unknown Tony Hernandez MD LAB BLOOD ORDERABLES Final Re sult * PTH, intact (03/08/2025 11:08 AM EDT) Blood Venous blood specimen / Unknown Tony Hernandez MD LAB BLOOD ORDERABLES Final Re sult Performing Organization Address [facility] de Phone Number EXTERNAL LAB * Calcium, urine, 24 hour (03/08/2025 10:07 AM EDT) Urine Urine specimen obtained by clean catch procedure / Unknown Result [facility] Tony Hernandez MD LAB URINE ORDERABLES Final Re sult Performing Organization Address [facility] de Phone Number EXTERNAL LAB * Creatinine, urine, 24 hour (03/08/2025 10:07 AM EDT) Urine Urine specimen obtained by clean catch procedure / Unknown Result [facility] Tony Hernandez MD LAB URINE ORDERABLES Final Re sult Performing Organization Address [facility] de Phone Number EXTERNAL LAB * Sodium, urine, 24 hour (03/08/2025 10:07 AM EDT) Urine Urine specimen obtained by clean catch procedure / Unknown Result [facility] Tony Hernandez MD LAB URINE ORDERABLES Final Re sult Performing Organization Address [facility] de Phone Number EXTERNAL LAB * SODIUM 24 HOUR URINE (03/08/2025 8:00 AM EDT) SODIUM URINE RANDOM 74 30 - 90 mmol/L [facility] SODIUM 24 HOUR URINE 200 40 - 220 mmol/24h [facility] 03/08/2025 8:00 AM EDT 03/08/2025 8:51 AM EDT Narrative CLINISYNC - 03/08/2025 9:13 AM EDT us Generic External Data Provider LAB BLOOD ORDERAB LES Final Result Performing Organization Address [facility] Co de Phone Number [facility] * (ABNORMAL) CALCIUM 24 HOUR URINE (03/08/2025 8:00 AM EDT) CALCIUM URINE RANDOM 12.9 5.1 - 21.0 mg/dL [facility] CALCIUM 24 HOUR URINE 348.3(H) 100.0 - 300.0 mg/24hr [facility] 03/08/2025 8:00 AM EDT 03/08/2025 8:51 AM EDT Narrative CLINISYNC - 03/08/2025 9:13 AM EDT us Generic External Data Provider LAB BLOOD ORDERAB LES Final Result Performing Organization Address [facility] de Phone Number [facility] * CREATININE 24 HOUR URINE (03/08/2025 8:00 AM EDT) CREATININE URINE RANDOM 59.28 20.00 - 300.00 mg/dL [facility] TOTAL VOLUME 24 HOUR URINE 2,700 mL/24hr [facility] CREATININE 24 HOUR URINE 1,600.56 1,000.0 - 2,000.00 mg/24 hr [facility] 03/08/2025 8:00 AM EDT 03/08/2025 8:51 AM EDT Narrative CLINISYNC - 03/08/2025 9:13 AM EDT us Generic External Data Provider LAB BLOOD ORDERAB LES Final Result Performing Organization Address [facility] Co de Phone Number [facility] * Comprehensive metabolic panel (03/07/2025 10:17 AM EDT) Blood Venous blood specimen / Unknown Tony Hernandez MD LAB BLOOD ORDERABLES Final Re sult * METRO BILIRUBIN, DIRECT (03/07/2025 7:35 AM EDT) Only the most recent of2 resultswithin the time period is included. BILIRUBIN DIRECT 0.2 0.0 - 0.2 mg/dL [facility] 03/07/2025 7:35 AM EDT 03/07/2025 7:37 AM EDT Narrative CLINISYNC - 03/07/2025 9:08 AM EDT us Generic External Data Provider CLINISYNC F inal Result Performing Organization Address City/[facility]/ZIP Co de Phone Number CLIN[facility]NC TB * (ABNORMAL) HMHP PTH, INTRAOPERATIVE (03/07/2025 7:35 AM EDT) PTH, INTACT 91(A) 15 - 65 pg/mL [facility] Comment: Performed at: - [facility] [id number] [place] Operator: Franklin Glover PhD, Phone: [phone] 03/07/2025 7:35 AM EDT 03/07/2025 7:37 AM EDT Narrative CLINISYNC - 03/08/2025 10:13 AM EDT us Generic External Data Provider CLINISYNC F inal Result Performing Organization Address City/[facility]/ZIP Co de Phone Number [facility] TB * HMHP ALKALINE PHOSPHATASE (03/07/2025 7:35 AM EDT) Only the most recent of2 resultswithin the time period is included. ALKALINE PHOSPHATASE 101 46 - 116 U/L [facility] 03/07/2025 7:35 AM EDT 03/07/2025 7:37 AM EDT Narrative CLINISYNC - 03/07/2025 9:08 AM EDT us Generic External Data Provider CLINISYNC F inal Result CLIN[facility]NC TB * [facility] AST (03/07/2025 7:35 AM EDT) Only the most recent of2 resultswithin the time period is included. ASPARTATE AMINO TRANSFERASE 19 15 - 37 U/L [facility] 03/07/2025 7:35 AM EDT 03/07/2025 7:37 AM EDT Narrative CLINISYNC - 03/07/2025 9:08 AM EDT Generic External Data Provider CLINISYNC F inal Result Performing Organization Address [facility] de Phone Number [facility] * [facility] ALT (03/07/2025 7:35 AM EDT) Only the most recent of2 resultswithin the time period is included. ALANINE AMINOTRANSFERASE 26 16 - 63 U/L [facility] 03/07/2025 7:35 AM EDT 03/07/2025 7:37 AM EDT Narrative CLINISYNC - 03/07/2025 9:08 AM EDT Generic External Data Provider CLINISYNC F inal Result Performing Organization Address [facility] de Phone Number CLINISYMT TB * ALL PHOSPHOROUS (03/07/2025 7:35 AM EDT) Only the most recent of2 resultswithin the time period is included. PHOSPHORUS 2.8 2.6 - 4.7 mg/dL [facility] 03/07/2025 7:35 AM EDT 03/07/2025 7:37 AM EDT Narrative CLINISYNC - 03/07/2025 9:08 AM EDT Generic External Data Provider CLINISYNC F inal Result Performing Organization Address [facility] de Phone Number CLINISYNC TB * ALL MISCELLANEOUS TEST (03/07/2025 7:35 AM EDT) Only the most recent of2 resultswithin the time period is included. MISCELLANEOUS TEST COMMENT . [facility] Comment: Test Ordered: [id number] Tacrolimus Rebaseline, [place] Tacrolimus by Immunoassay 5.7 ng/mL Reference Range: 5.0-20.0 Detection Limit = 0.8 ng/mL Target steady state trough concentration for Tacrolimus varies based on type of organ transplant immunosuppressive protocol and other patient specific factors. Tacrolimus trough concentrations should be interpreted in conjunction with clinical assessments of rejection and tolerability. Values obtained with different assay methods cannot be used interchangeably due to differences in assay methods and cross-reactivity with metabolites, nor should correction factors be applied. Therefore, consistent use of one assay for individual patients is recommended. Tacrolimus assay performed by [employer] Immunoassay. Please note reference interval change [facility] will offer rebaseline testing (Test No. [id number]) through March 29, 2025. The rebaseline test will include results from both the current method ([employer]) and the new method (Vikas). All test results indicate the taker off drying kiln of the test on the laboratory report. The rebaseline test for tacrolimus immunoassay is charged at the castillo for the new test; the test for the retiring method is performed at no additional charge. Tacrolimus IA by Thermo 7.9 ng/mL Reference Range: . Performed at: - [address] [id number] [place] Operator: Franklin Glover PhD, Phone: [phone] 03/07/2025 7:35 AM EDT 03/07/2025 7:37 AM EDT Narrative CLINISYNC - 03/09/2025 6:09 PM EDT [id number] TACRO-REBASELINE Generic External Data Provider [facility]NC F inal Result [facility] * ALL MAGNESIUM (03/07/2025 7:35 AM EDT) Only the most recent of2 resultswithin the time period is included. Pathologist [facility] MAGNESIUM 1.8 1.8 - 2.4 mg/dL [facility] 03/07/2025 7:35 AM EDT 03/07/2025 7:37 AM EDT Narrative CLINISYNC - 03/07/2025 9:08 AM EDT Generic External Data Provider CLINISYNC F inal Result Performing Organization Address City/[facility]/ZIP Co de Phone Number * ALL GAMMA GLUTAMYL TRANSPEPTIDASE (03/07/2025 7:35 AM EDT) Only the most recent of2 resultswithin the time period is included. Pathologist [facility] GAMMA GLUTAMYL TRANSPEPTIDASE 26 15 - 85 U/L TB 03/07/2025 7:35 AM EDT 03/07/2025 7:37 AM EDT [facility] - 03/07/2025 9:08 AM EDT Generic External Data Provider CLINISYNC F inal Result Performing Organization Address [facility] de Phone Number * ALL CBC WITH AUTO DIFF (03/07/2025 7:35 AM EDT) Only the most recent of2 resultswithin the time period is included. Pathologist [facility] TB WBC 4.7 4.0 - 11.0 10 3/uL TBH TB RBC 5.42 4.70 - 6.10 10 6/uL TBH TB HGB 16.1 14.0 - 18.0 g/dL TB TB HCT 47.5 42.0 - 54.0 % TB TB MCV 87.6 80.0 - 94.0 fL TB TB MCH 29.7 25.9 - 34.0 pg TB TB MCHC 33.9 29.9 - 35.2 g/dL TB TB RDW 12.5 11.0 - 15.0 % TB TB PLT 216 150 - 450 10 3/uL TB TB MPV 9.8 9.5 - 13.5 fL TB NEUTROPHILS PERCENT AUTO 52.5 43.0 - 75.0 % TBH LYMPHOCYTES PERCENT AUTO 34.5 20.5 - 60.0 % TB MONOCYTES PERCENT AUTO 9.1 1.7 - 12.0 % TBH TBH EO % 2.8 0.9 - 7.0 % TBH BASOPHILS PERCENT AUTO 0.9 0.2 - 2.0 % TBH IMMATURE GRANULOCYTES PCT AUTO 0.2 0.0 - 0.5 % TBH NEUTROPHILS ABSOLUTE AUTO 2.5 1.4 - 6.5 10 3/uL TBH LYMPHOCYTES ABSOLUTE AUTO 1.6 1.2 - 3.8 10 3/uL TBH MONOCYTES ABSOLUTE AUTO 0.4 0.3 - 0.8 10 3/uL TBH TBH EO # 0.1 0.0 - 0.7 10 3/uL TBH BASOPHILS ABSOLUTE AUTO 0.0 0.0 - 0.1 10 3/uL TBH IMMATURE GRANULOCYTES ABS AUTO 0.01 0.00 - 0.03 10 3/uL [facility] 03/07/2025 7:35 AM EDT 03/07/2025 7:37 AM EDT [facility] CLINISYMT - 03/07/2025 8:10 AM EDT Generic External Data Provider CLINISYNC F inal Result Performing Organization Address [facility] de Phone Number [facility] * ALL BILIRUBIN,TOTAL (03/07/2025 7:35 AM EDT) Only the most recent of2 resultswithin the time period is included. BILIRUBIN TOTAL 0.8 0.2 - 1.0 mg/dL [facility] 03/07/2025 7:35 AM EDT 03/07/2025 7:37 AM EDT [facility] CLINISYMT - 03/07/2025 9:08 AM EDT Generic External Data Provider CLINISYNC F inal Result Performing Organization Address [facility] de Phone Number [facility] * (ABNORMAL) ALL BASIC METABOLIC PANEL (03/07/2025 7:35 AM EDT) Only the most recent of2 resultswithin the time period is included. SODIUM 141 136 - 145 mmol/L TBH POTASSIUM 3.9 3.5 - 5.1 mmol/L TBH CHLORIDE 107 98 - 107 mmol/L TBH CARBON DIOXIDE 24.6 21.0 - 32.0 mmol/L TBH ANION GAP 13.3 TBH GLUCOSE 114(H) 74 - 106 mg/dL TBH BLOOD UREA NITROGEN 10.0 7.0 - 18.0 mg/dL [facility] CREATININE 1.33(H) 0.70 - 1.30 mg/dL TBH TBH EGFR-AF RWANDAN >60 >=60 mL/min/1.7 3m 2 TBH TBH EGFR-NON AF RWANDAN 56(L) >=60 mL/min/1.7 3m 2 TBH BUN CREATININE RATIO 7.5 TBH CALCIUM 9.1 8.5 - 10.1 mg/dL [facility] 03/07/2025 7:35 AM EDT 03/07/2025 7:37 AM EDT Narrative CLINISYNC - 03/07/2025 9:08 AM EDT Generic External Data Provider CLINISYNC F inal Result Performing Organization Address [facility] Co de Phone Number CLINISYNC [facility] * ALL ALBUMIN (03/07/2025 7:35 AM EDT) Only the most recent of2 resultswithin the time period is included. ALBUMIN LEVEL 4.0 3.4 - 5.0 g/dL [facility] 03/07/2025 7:35 AM EDT 03/07/2025 7:37 AM EDT Narrative CLINISYNC - 03/07/2025 9:08 AM EDT Generic External Data Provider CLINISYNC F inal Result Performing Organization Address City/[facility] Co de Phone Number CLINISYNC [facility] * Colonoscopy (12/26/2024 1:58 PM EST) Anatomical Region Laterality Modality Endoscopy Yoselyn Goins MD ENDOSCOPY PROCEDURE ORDERABLES F inal Result from Last 3 Months or Most Recently Relevant to Health Maintenance Insurance [employer] MEDICARE ADVANTAGE Care Teams Director Of Capital Giving Relationship Specialty Start Date End Date Momo Verdugo MD [address] [place] [phone] PCP - General Family Medicine 02/11/24 Momo Verdugo MD [address] [place] [address] PCP - [employer] 12/31/24 Mihaela Bruno NP [address] [place] [address] Nurse Practitioner Family Medicine 02/11/24 Kasandra Thomas DO [address] [place] [address] Referring Physician Neurology 02/17/24
--- OUTSIDE RECORDS SUMMARY | 2025-05-02 06:34 | XMS_ITS | Encounter Summary ---
Author Organization [facility] Address [address] [place] [address] Care Team Providers Care Analyst Competitive Intelligence Name Role Phone Momo Verdugo MD Primary Care Provider [phone] Mihaela Bruno NP Unavailable [phone] Kasandra Thomas DO Unavailable [phone] Momo Verdugo MD Unavailable Encounter Details Date Type Department Care Team (Late st Contact Info) Description 09/05/2024 Clinisync Result Encounter [facility] External Department Unsolicited Mihaela Bruno, BA [address] [place] [phone] Social History Tobacco Use Types Packs/Day Years [...] week 02/11/2024 How often do you attend catholic or cheondoism serv ices? Never 02/11/2024 Do you belong to any clubs o r organizations such as catholic groups, unions, fraternal or athletic groups, or [...] Recorded Patient Health Questionnaire-2 Score 0 02/11/2024 [facility] - Occupational Stress Questionnaire Answer Date [...] place to sleep or slept in a [place] health care facility (including now)? No 10/27/2023 Sex and Gender Information Value Date Recorded Sex Assigned at Not on file Legal Sex Male 7:07 PM EDT Gender Identity Not on file Sexual Orientation Not on file documented as of this encounter Plan of Treatment Upcoming Encounters Date Type Department Care Team (Late st Contact Info) Description 05/11/2025 10:00 AM EDT [facility] Visit [facility] [address] [place] [address] Mihaela Bruno NP [address] [place] [address] 09/19/2025 9:30 AM EDT Office Visit [facility] [address] [place] [phone] Tony Hernandez MD [address] [place] [address] documented as of this encounter Procedures Procedure Name Priority Date/Time Associated Diagnosis Comments VASC US CAROTID ARTERY DUPLEX BILATERAL 09/05/2024 11:00 AM EDT documented in this encounter Results * Vascular US carotid artery duplex bilateral (09/05/2024 11:00 AM EDT) Anatomical Region Laterality Modality Neck Ultrasound 09/05/2024 11:0 0 AM EDT Narrative 09/05/2024 11:03 [place] [address] Ultrasound Report Signed Patient: GEORGE STYLES MR#: [id number] : 1970 Acct:[id number] Age/Sex: 54 / M ADM Date: 09/05/24 Loc: RAD Attending Dr: Mihaela Bruno SUPERVISOR PIPE JOINTS Ordering Physician: Mihaela Bruno NP Date of Service: 09/05/24 Procedure(s): US carotid duplex BI Accession Number(s): [id number] cc: Mihaela Bruno NP [place] [address] Patient Name: GEORGE STYLES MRN: [id number] date: 1970 Sex: M Assigned Patient Location: [facility] Current Patient Location: [facility] Accession/Order Number: [id number] Exam Date: 09/05/2024 10:22 Report Date: 09/05/2024 11:00 At the request of: MIHAELA BRUNO Procedure: US carotid duplex BI EXAMINATION: US carotid duplex BI HISTORY: Left Carotid bruit, Mixed Hyperlipidemia COMPARISON: No relevant comparison available. TECHNIQUE: Duplex Doppler ultrasound analysis of carotid and vertebral arteries. . Bilateral carotid arterial duplex examination was performed using B-mode, color flow and spectral analysis. Carotid stenosis is reported according to validated velocity parameters, similar to NASCET criteria. FINDINGS: RIGHT CAROTID ARTERY Mild atherosclerotic plaque Subclavian: 131.88 cm/s / 11.63 cm/s CCA: Prox: 100.32 cm/s / 15.57 cm/s Mid: 104.26 cm/s / 15.57 cm/s Distal: 87.87 cm/s / 14.11 cm/s BULB: 49.05 cm/s / 8.93 cm/s ICA: Prox: 63.28 cm/s / 11.52 cm/s Mid: 64.57 cm/s / 15.40 cm/s Distal: 47.14 cm/s / 11.98 cm/s ECA: 105.95 cm/s / 7.43 cm/s VERTEBRAL: 49.42 cm/s / 10.66 cm/s ICA/CCA ratio: 0.7 LEFT CAROTID ARTERY mild atherosclerotic plaque Subclavian: 141 cm/s / 7 cm/s CCA: Prox: 107.62 cm/s / 14.98 cm/s Mid: 100.42 cm/s / 13.72 cm/s Distal: 91.37 cm/s / 12.42 cm/s BULB: 82.31 cm/s / 7.25 cm/s ICA: Prox: 66.78 cm/s / 16.31 cm/s Mid: 55.13 cm/s / 16.31 cm/s Distal: 77.13 cm/s / 20.19 cm/s ECA: 110.79 cm/s / 9.04 cm/s VERTEBRAL: 38.03 cm/s / 7.50 cm/s ICA/CCA ratio: 0.9 US/US carotid duplex BI IMPRESSION: 0-49% flow stenosis bilateral internal carotid arteries Spectral Doppler US Thresholds (Reference: Wilson EG, et al. Radiology 2000; 214:247-252) Stenosis (%) PSV (cm/sec) VICA/VCCA 0-49 <150 <2.5 50-69 150-225 2.5-4.0 >70 >225 >4.0 Electronically authenticated by: GIAN RODRIGUEZ Date: 09/05/2024 11:00 Dictated By: Gian Rodriguez M.D. Signed By: 09/05/24 1103 DD/ 1100 TD/TT: [employer] Handler: Procedure Note Radiology, Radiologist, MD - 09/05/2024 [place] [address] Ultrasound Report Signed Patient: GEORGE STYLES [facility]#: [id number] : 1970Acct:[id number] Age/Sex: 54 / MADM Date: 09/05/24 Loc: RAD Attending Dr: Mihaela Bruno NP Ordering Physician: Mihaela Bruno NP Date of Service: 09/05/24 Procedure(s): US carotid duplex BI Accession Number(s): [id number] cc: Mihaela Bruno NP [place] [id number] Patient Name: GEORGE STYLES MRN: [id number] date: 1970 Sex: M Assigned Patient Location: [facility] Current Patient Location: RAD Accession/Order Number: [id number] Exam Date: 09/05/2024 10:22 Report Date: 09/05/2024 11:00 At the request of: MIHAELA BRUNO Procedure: US carotid duplex BI EXAMINATION: US carotid duplex BI HISTORY: Left Carotid bruit, Mixed Hyperlipidemia COMPARISON: No relevant comparison available. TECHNIQUE: Duplex Doppler ultrasound analysis of carotid and vertebral arteries. . Bilateral carotid arterial duplex examination was performedusing B-mode, color flow and spectral analysis. Carotid stenosis is reported according to validated velocity parameters, similar to NASCET criteria. FINDINGS: RIGHT CAROTID ARTERY Mild atherosclerotic plaque Subclavian: 131.88 cm/s / 11.63 cm/s CCA: Prox: 100.32 cm/s / 15.57 cm/s Mid: 104.26 cm/s / 15.57 cm/s Distal: 87.87 cm/s / 14.11 cm/s BULB: 49.05 cm/s / 8.93 cm/s ICA: Prox: 63.28 cm/s / 11.52 cm/s Mid: 64.57 cm/s / 15.40 cm/s Distal: 47.14 cm/s / 11.98 cm/s ECA: 105.95 cm/s / 7.43 cm/s VERTEBRAL: 49.42 cm/s / 10.66 cm/s ICA/CCA ratio: 0.7 LEFT CAROTID ARTERY mild atherosclerotic plaque Subclavian: 141 cm/s / 7 cm/s CCA: Prox: 107.62 cm/s / 14.98 cm/s Mid: 100.42 cm/s / 13.72 cm/s Distal: 91.37 cm/s / 12.42 cm/s BULB: 82.31 cm/s / 7.25 cm/s ICA: Prox: 66.78 cm/s / 16.31 cm/s Mid: 55.13 cm/s / 16.31 cm/s Distal: 77.13 cm/s / 20.19 cm/s ECA: 110.79 cm/s / 9.04 cm/s VERTEBRAL: 38.03 cm/s / 7.50 cm/s ICA/CCA ratio: 0.9 US/US carotid duplex BI IMPRESSION: 0-49% flow stenosis bilateral internal carotid arteries Spectral Doppler US Thresholds (Reference: Wilson EG, et al. [id number]; 214:247-252) Stenosis (%) PSV (cm/sec) VICA/VCCA 0-49 <150 <2.5 50-69 150-225 2.5-4.0 >70 >225 >4.0 Electronically authenticated by: GIAN RODRIGUEZ Date: 09/05/2024 11:00 Dictated By: Gian Rodriguez M.D. Signed By:09/05/24 1103 DD/ 1100 TD/TT: [employer] Handler: us Mihaela Bruno SUPERVISOR PIPE JOINTS IMG US PROCEDURES Final Result documented in this encounter Visit Diagnoses Not on filedocumented in this encounter Additional Health Concerns Assessment Noted Time PHQ-9 Depression Total Score: 2 02/11/20 24 10:49 AM EDT documented as of this encounter Care Teams Analyst Competitive Intelligence Relationship Specialty Start Date End Date Momo Verdugo MD [address] [place] [phone] PCP - General Family Medicine 02/11/24 Momo Verdugo MD [address] [place] [address] PCP - [employer] 12/31/24 Mihaela Bruno NP [address] [place] [address] Nurse Practitioner Family Medicine 02/11/24 Kasandra Thomas DO [address] [place] [address] Referring Physician Neurology 02/17/24 documented as of this encounter
--- OUTSIDE RECORDS SUMMARY | 2025-05-02 06:34 | XMS_ITS | Encounter Summary ---
Author Organization [facility] Address [address] [place] [address] Care Team Providers Care School Supervisor Name Role Phone Momo Verdugo MD Primary Care Provider [phone] Mihaela Bruno MARKET RESEARCH INTERVIEWER Unavailable [phone] Kasandra Thomas DO Unavailable [phone] Momo Verdugo MD Unavailable Reason for Visit * Reason Onset Date Comments Med Refill 02/20/2025 Encounter Details Date Type Department Care Team (Late st Contact Info) Description 02/20/2025 Telephone [facility] [address] [place] [address] Momo Verdugo MD [address] [place] [address] Med Refill Social History Tobacco Use Types Packs/Day Years [...] week 02/06/2025 How often do you attend taoist or jehovah's witness serv ices? Never 02/06/2025 Do you belong to any clubs o r organizations such as taoist groups, unions, fraternal or athletic groups, or [...] Recorded Patient Health Questionnaire-2 Score 0 02/11/2024 [facility] [place] [facility] - Occupational Stress [...] place to sleep or slept in a residential (including now)? No 10/27/2023 Housing Stability Vital Sign Answer Chris e Recorded In the last 12 months, was t here a time when you were not able to pay the mortgage or rent on time? No 02/06/2025 In the past 12 months, how m any times have you moved where you were living? 0 02/06/2025 At any time in the past 12 m [facility], were you homeless or living in a residential (including now)? No 02/06/2025 Sex and Gender Information Value Date Recorded Sex Assigned at Not on file Legal Sex Male 7:07 PM EDT Gender Identity Not on file Sexual Orientation Not on file documented as of this encounter Miscellaneous Notes * Telephone Encounter - CARI SONG - 02/23/2025 1:54 PM EDT Yeah. My name is Esteban Styles and my number is [phone] need a refill on my fine. documented in this encounter Plan of Treatment Upcoming Encounters Date Type Department Care Team (Late st Contact Info) Description 05/11/2025 10:00 AM EDT Office Visit [facility] [address] [place] [address] Mihaela Bruno, BA [address] [place] [address] 09/19/2025 9:30 AM EDT Office Visit [facility] [address] [place] [phone] Tony Hernandez MD [address], [address] [place] [address] documented as of this encounter Visit Diagnoses Not on filedocumented in this encounter Additional Health Concerns Assessment Noted Time PHQ-9 Depression Total Score: 2 02/11/20 24 10:49 AM EDT documented as of this encounter Care Teams School Supervisor Relationship Specialty Start Date End Date Momo Verdugo MD [address] [place] [phone] PCP - General Family Medicine 02/11/24 Momo Verdugo MD [address] [place] [address] PCP - [employer] 12/31/24 Mihaela Bruno NP [address] [place] [address] Nurse Practitioner Family Medicine 02/11/24 Kasandra Thomas DO [address] [place] [address] Referring Physician Neurology 02/17/24 documented as of this encounter
--- OUTSIDE RECORDS SUMMARY | 2025-05-02 06:34 | XMS_ITS | Encounter Summary ---
Author Organization [facility] Address [address] [place] [address] Care Team Providers Care Doorshaker Name Role Phone Momo Verdugo MD Primary Care Provider [phone] Mihaela Bruno NP Unavailable [phone] Kasandra Thomas DO Unavailable [phone] Momo Verdugo MD Unavailable Encounter Details Date Type Department Care Team (Late st Contact Info) Description 09/05/2024 Clinisync Result Encounter [facility] External Department Unsolicited Mihaela Bruno, BA [address] [place] [address] Social History Tobacco Use Types Packs/Day Years [...] How often do you attend lutheran or catholic serv ices? Never 02/11/2024 Do you belong [...] Recorded Patient Health Questionnaire-2 Score 0 02/11/2024 [facility] - Occupational Stress Questionnaire Answer Date [...] place to sleep or slept in a half-way (including now)? No 10/27/2023 Sex and Gender Information Value Date Recorded Sex Assigned at Not on file Legal Sex Male 7:07 PM EDT Gender Identity Not on file Sexual Orientation Not on file documented as of this encounter Plan of Treatment Upcoming Encounters Date Type Department Care Team (Late st Contact Info) Description 05/11/2025 10:00 AM EDT [facility] [address] [place] [address] Mihaela Bruno NP [address] [place] [address] 09/19/2025 9:30 AM EDT Office Visit [facility] [address] [place] [address] Tony Hernandez MD [address] [place] [address] documented as of this encounter Procedures Procedure Name Priority Date/Time Associated Diagnosis Comments XR DEXA AXIAL SKELETON 09/05/2024 11:21 AM EDT documented in this encounter Results * XR DEXA AXIAL SKELETON (09/05/2024 11:21 AM EDT) Anatomical Region Laterality Modality Other 09/05/2024 11:2 1 AM EDT Narrative 09/05/2024 11:23 AM EDT [address] [address] XRay Report Signed Patient: GEORGE STYLES MR#: [id number] : 1970 Acct:[id number] Age/Sex: 54 / M ADM Date: 09/05/24 Loc: RAD Attending Dr: Mihaela Bruno NP Ordering Physician: Mihaela Bruno NP Date of Service: 09/05/24 Procedure(s): XR DEXA axial skeleton Accession Number(s): [id number] cc: Mihaela Bruno NP [place] [address] Patient Name: GEORGE STYLES MRN: [id number] date: 1970 Sex: M Assigned Patient Location: [facility] Current Patient Location: [facility] Accession/Order Number: [id number] Exam Date: 09/05/2024 10:30 Report Date: 09/05/2024 11:21 At the request of: MIHAELA BRUNO Procedure: XR DEXA axial skeleton EXAMINATION: XR DEXA axial skeleton, 09/05/2024 10:30 AM EDT HISTORY: Organ Transplant, Immunocompromised COMPARISON: None. TECHNIQUE: Dual-energy X-ray absorptiometry (DEXA) bone density study performed for the axial skeleton. FINDINGS: Bone mineral density of the lumbar spine L2-L4 measures 1.208 g/sq cm for T score -0.3. The lowest bone mineral densities the right femoral neck measuring 0.740 g/sq cm. T score -2.5. Osteoporosis XR/XR DEXA axial skeleton IMPRESSION: Osteoporosis. High fracture risk Pharmacologic treatment recommendations * No uniform recommendation applies to all patients. Management plans must be individualized. * Consider initiating pharmacologic treatment in postmenopausal women and men >= 50 years of age who have the following: Primary fracture prevention: * T-score <= - 2.5 at the femoral neck, total hip, lumbar spine, 33% radius (some uncertainty with existing data) by DXA. * Low bone mass (osteopenia: T-score between - 1.0 and - 2.5) at the femoral neck or total hip by DXA with a 10-year hip fracture risk >= 3% or a 10-year major osteoporosis-related fracture risk >= 20% (i.e., clinical vertebral, hip, forearm, or proximal humerus) based on the US-adapted FRAXregistered model. Secondary fracture prevention: * Fracture of the hip or vertebra regardless of BMD [4, 5]. * Fracture of proximal humerus, pelvis, or distal forearm in persons with low bone mass (osteopenia: T-score between - 1.0 and - 2.5). The decision to treat should be individualized in persons with a fracture of the proximal humerus, pelvis, or distal forearm who do not have osteopenia or low BMD [12, 13]. Ernestine MS, Jonathan SL, Gabriela KL, Lilo EM, Narendra KG, AJ, Deion ES. The clinician's guide to prevention and treatment of osteoporosis. Osteoporos Int. 2021;33(10):5214-9783. doi: 10.1007/z58040-161-54136-x. Epub 2021Mar 27. Erratum in: Osteoporos Int. 2021Jun 26;: PMID: 97558560; PMCID: [id number]. Electronically authenticated by: GIAN RODRIGUEZ Date: 09/05/2024 11:21 Dictated By: Gian Rodriguez M.D. Signed By: 09/05/24 1123 DD/ 1121 TD/TT: Bobbin Collector: Procedure Note Radiology, Radiologist, - 09/05/2024 [place] [address] XRay Report Signed Patient: GEORGE STYLES#: [id number] : 1970Acct:[id number] Age/Sex: 54 / MADM Date: 09/05/24 Loc: RAD Attending Dr: Mihaela Bruno NP Ordering Physician: Mihaela Bruno NP Date of Service: 09/05/24 Procedure(s): XR DEXA axial skeleton Accession Number(s): [id number] cc: Mihaeal Bruno NP [place] [id number] Patient Name: GEORGE STYLES MRN: [id number] date: 1970 Sex: M Assigned Patient Location: [facility] Current Patient Location: RAD Accession/Order Number: [id number] Exam Date: 09/05/2024 10:30 Report Date: 09/05/2024 11:21 At the request of: MIHAELA BRUNO Procedure: XR DEXA axial skeleton EXAMINATION: XR DEXA axial skeleton, 09/05/2024 10:30 AM EDT HISTORY: Organ Transplant, Immunocompromised COMPARISON: None. TECHNIQUE: Dual-energy X-ray absorptiometry (DEXA) bone density study performed for the axial skeleton. FINDINGS: Bone mineral density of the lumbar spine L2-L4 measures 1.208 g/sq cm forT score -0.3. The lowest bone mineral densities the right femoral neck measuring 0.740g/sq cm. T score -2.5. Osteoporosis XR/XR DEXA axial skeleton IMPRESSION: Osteoporosis. High fracture risk Pharmacologic treatment recommendations * No uniform recommendation applies to all patients. Management plans mustbe individualized. * Consider initiating pharmacologic treatment in postmenopausal women andmen >= 50 years of age who have the following: Primary fracture prevention: * T-score <= - 2.5 at the femoral neck, total hip, lumbar spine, 33%radius (some uncertainty with existing data) by DXA. * Low bone mass (osteopenia: T-score between - 1.0 and - 2.5) at thefemoral neck or total hip by DXA with a 10-year hip fracture risk >= 3% or [id number] major osteoporosis-related fracture risk >= 20% (i.e., clinical vertebral, hip, forearm, or proximal humerus) based on the US-adapted FRAXregisteredmodel. Secondary fracture prevention: * Fracture of the hip or vertebra regardless of BMD [4, 5]. * Fracture of proximal humerus, pelvis, or distal forearm in persons withlow bone mass (osteopenia: T-score between - 1.0 and - 2.5). The decision totreat should be individualized in persons with a fracture of the proximalhumerus, pelvis, or distal forearm who do not have osteopenia or low BMD [12, 13]. Ernestine MS, Jonathan SL, Gabriela KL, Lilo EM, Narendra KG, AJ,Deion ES. The clinician's guide to prevention and treatment of osteoporosis.Osteoporos Int. 2021;33(10):8589-3979. doi: 10.1007/k96769-665-41932-w. Epub . Erratum in: Osteoporos Int. 2021Jun 26;: PMID: 70547593; PMCID: [id number]. Electronically authenticated by: GIAN RODRIGUEZ Date: 09/05/2024 11:21 Dictated By: Gian Rodriguez M.D. Signed By:09/05/24 1123 DD/ 1121 TD/TT: Bobbin Collector: us Mihaela Bruno NP [facility] Final Result documented in this encounter Visit Diagnoses Not on filedocumented in this encounter Additional Health Concerns Assessment Noted Time PHQ-9 Depression Total Score: 2 02/11/20 24 10:49 AM EDT documented as of this encounter Care Teams Doorshaker Relationship Specialty Start Date End Date Momo Verdugo MD [address] [place] [address] PCP - General Family Medicine 02/11/24 Momo Verdugo MD [address] [place] [address] PCP - [employer] 12/31/24 Mihaela Bruno NP [address] [place] [address] Nurse Practitioner Family Medicine 02/11/24 Kasandra Thomas DO [address] [place] [address] Referring Physician Neurology 02/17/24 documented as of this encounter
--- OUTSIDE RECORDS SUMMARY | 2025-05-02 06:35 | XMS_ITS | Clinical Summary ---
Author Organization [facility] Address [address] [place] [address] Care Team Providers Care Consulting Systems Engineer Name Role Phone Unavailable Primary Care Provider Unavailabl e Allergies No known active allergies Medications aspirin 81 MG chewable tablet Take 81 mg by mouth daily Active midodrine (PROAMATINE) 5 MG tablet Take 10 mg by mouth 3 times daily Prn with dialysis Active lactulose (CEPHULAC) 20 g packet Take 20 g by mouth 3 times daily Active Multiple Vitamins-Minera ls (THERAPEUTIC MULTIVITAMIN-HI NERALS) tablet Take 1 tablet by mouth daily Active magnesium oxide (MAG-OX) 400 MG tablet Take 400 mg by mouth daily Active sevelamer (RENVELA) 800 MG tablet Take 2 tablets by mouth 3 times daily (with meals) Active folic acid (FOLVITE) 1 MG tablet Take 1 mg by mouth daily Active vitamin D (CHOLECALCIFERO L) 1000 UNIT TABS tablet Take 1,000 Units by mouth daily Active rifaximin (XIFAXAN) 550 MG tablet Take 550 mg by mouth 2 times daily Active POTASSIUM CHLORIDE PO Take 40 mEq by mouth daily Active b iamdelv-E-bzuap acid (NEPHROCAPS) 1 MG capsule Take 1 capsule by mouth daily Active Active Problems Problem Noted Date Diagnosed Date End stage renal disease 06/22/2018 Increased ammonia level 06/22/2018 Social History Tobacco Use Types Packs/Day Years Used Date Smoking Tobacco: Former Smokeless Tobacco: Never Alcohol Use Standard Drinks/Week Comments No 0 (1 standard drink = 0.6 oz pur e alcohol) Hx of alcoholism Sex and Gender Information Value Date Recorded Sex Assigned at Not on file Legal Sex Male 11:54 AM EDT Gender Identity Not on file Sexual Orientation Not on file Last Filed Vital Signs Vital Sign Reading Time Taken Comments Blood Pressure 115/63 12/21/2018 10:50 AM EST Pulse 79 12/21/2018 10:50 AM EST Temperature 37.4 C (99.3 F) 12/21/2018 9:53 AM EST Respiratory Rate 12 12/21/2018 10:50 AM EST Oxygen Saturation 99% 12/21/2018 10:50 AM EST Inhaled Oxygen Concentration - - Weight 79.2 kg (174 lb 9.7 oz) 11/03/2018 10:56 AM EST Height 172.7 cm (5' 8 ) 06/22/2018 2:42 PM EDT Body Mass Index 26.55 06/22/2018 2:42 PM EDT Plan of Treatment Not on file Insurance MEDICAID [place] MEDICARE MEDICARE [place] [id number]
--- OUTSIDE RECORDS SUMMARY | 2025-05-02 06:35 | XMS_ITS | Encounter Summary ---
Author Organization [facility] Address [address] [facility] [place] [address] Care Team Providers Care Slackman Name Role Phone Momo Verdugo MD Primary Care Provider [phone] Momo Verdugo MD Primary Care Provider [phone] Mihaela Bruno SPA DIRECTOR Unavailable [phone] Kasandra Thomas DO Unavailable [phone] Momo Verdugo MD Unavailable Encounter Details Date Type Department Care Team (Late st Contact Info) Description 12/02/2023 Orders Only [facility] [address] [place] [address] Mihaela Bruno, SPA DIRECTOR [address] [place] [address] Social History Tobacco Use Types Packs/Day Years [...] the phone with family, friends, or neighbors? Twice a week 10/27/2023 How often do you get togethe r with friends or relatives? Once a week 10/27/2023 How often do you attend denominational or sabianism serv ices? Never 10/27/2023 Do you belong to any clubs o r organizations such as denominational groups, unions, fraternal or athletic groups, or school groups? No 10/27/2023 How often do you attend meet ings of the clubs or organizations you belong to? Never 10/27/2023 Are you , , di vorced, , never , or living with a partner? Patient declined 10/27/2023 AUDIT-C Answer Date Recorded Q1: How often [...] and heating? Not hard at all 10/27/2023 [facility] [...] in a custodial (including now)? No 10/27/2023 Sex and Gender Information Value Date Recorded Sex Assigned at Not on file Legal Sex Male 7:07 PM EDT Gender Identity Not on file Sexual Orientation Not on file documented as of this encounter Plan of Treatment Upcoming Encounters Date Type Department Care Team (Late st Contact Info) Description 05/11/2025 10:00 AM EDT [facility] [address] [place] [address] Mihaela Bruno NP [address] [place] [address] 09/19/2025 9:30 AM EDT Office Visit [facility] [address] [place] [phone] Tony Hernandez MD [address] [place] [address] documented as of this encounter Procedures Procedure Name Priority Date/Time Associated Diagnosis Comments MULTIPLE SLEEP LATENCY TEST Routine 11/18/2023 10:21 AM EST documented in this encounter Results * Multiple sleep latency test (11/18/2023 10:21 AM EST) us Mihaela Bruno SPA DIRECTOR [facility]EP CENTER ORDERABLES Final R esult documented in this encounter Visit Diagnoses Not on filedocumented in this encounter Care Teams Slackman Relationship Specialty Start Date End Date Momo Verdugo MD PCP - General Family Medicine 05/21/23 02/10/24 Momo Verdugo MD [address] [place] [address] PCP - General Family Medicine 02/11/24 Momo Verdugo MD [address] [place] [address] PCP - [employer] 12/31/24 Mihaela Bruno NP [address] [place] [address] Nurse Practitioner Family Medicine 02/11/24 Kasandra Thomas DO [address] [place] [address] Referring Physician Neurology 02/17/24 documented as of this encounter
--- OUTSIDE RECORDS SUMMARY | 2025-05-02 06:35 | XMS_ITS | Encounter Summary ---
Author Organization [facility] Address [address] [place] [address] Care Team Providers Care Feather Drying Machine Operator Name Role Phone Momo Verdugo MD Primary Care Provider [phone] Momo Verdugo MD Primary Care Provider [phone] Mihaela Bruno NP Unavailable [phone] Kasandra Thomas DO Unavailable [phone] Momo Verdugo MD Unavailable Encounter Details Date Type Department Care Team (Late st Contact Info) Description 11/10/2023 Clinisync Result Encounter [facility] External Department Unsolicited [...] week 10/27/2023 How often do you attend methodist or methodist serv ices? Never 10/27/2023 Do you belong to any clubs o r organizations such as methodist groups, unions, fraternal or athletic groups, or [...] and heating? Not hard at all 10/27/2023 [facility] - Occupational [...] place to sleep or slept in a jail (including now)? No 10/27/2023 Sex and Gender Information Value Date Recorded Sex Assigned at Not on file Legal Sex Male 7:07 PM EDT Gender Identity Not on file Sexual Orientation Not on file COVID-19 Exposure Response Date Recorded In the last 10 days, have yo u been in contact with someone who was confirmed or suspected to have Coronavirus/COVID-19? No / Unsure 10/27/2023 10:42 AM EST documented as of this encounter Plan of Treatment Upcoming Encounters Date Type Department Care Team (Late st Contact Info) Description 05/11/2025 10:00 AM EDT Office Visit [facility] [address] [place] [address] Mihaela Bruno NP [address] [place] [address] 09/19/2025 9:30 AM EDT Office Visit [facility] [address] [address] [place] [phone] Tony Hernandez MD [address] [place] [address] documented as of this encounter Procedures Procedure Name Priority Date/Time Associated Diagnosis Comments MR HEAD/BRAIN WO CON 11/10/2023 2:58 PM EST documented in this encounter Results * MR HEAD/BRAIN WO CON (11/10/2023 2:58 PM EST) Anatomical Region Laterality Modality Other 11/10/2023 2:58 PM EST Narrative 11/10/2023 3:01 [place] [address] Magnetic Resonance Report Signed Patient: GEORGE STYLES MR#: [id number] : 1970 Acct:[id number] Age/Sex: 53 / M ADM Date: 11/10/23 Loc: MRI Attending Dr: CAESAR TEIXEIRA Ordering Physician: CAESAR TEIXEIRA Date of Service: 11/10/23 Procedure(s): MR head/brain wo con Accession Number(s): [id number] cc: Mihaela Bruno TRACK INSPECTOR; CAESAR TEIXEIRA [place] [id number] Patient Name: GEORGE STYLES MRN: [id number] date: 1970 Sex: M Assigned Patient Location: MRI Current Patient Location: MRI Accession/Order Number: [id number] Exam Date: 11/10/2023 13:00 Report Date: 11/10/2023 14:58 At the request of: CAESAR TEIXEIRA Procedure: MR head/brain wo con EXAM: MR head/brain wo con HISTORY: Tremor COMPARISON: MRI brain 08/23/2018 TECHNIQUE: MRI of the brain was performed without contrast. FINDINGS: There is no restricted diffusion to suggest acute infarct. There is no midline shift, mass effect, or abnormal extraaxial fluid collections. Mild enlarged cortical sulci, consistent with age appropriate cerebral atrophy. There are nonspecific scattered foci of T2/FLAIR signal abnormality in the subcortical and periventricular white matter, which appear stable since 2018. Statistically, these are most likely based on chronic microvascular ischemia for this age. The major intracranial flow voids are visualized. The cerebellar tonsils are normal in position. The orbits are unremarkable. The calvarium and extracranial soft tissues are unremarkable. The paranasal sinuses and mastoid air cells are clear. MR/MR head/brain wo con IMPRESSION: No acute intracranial abnormality. Mild chronic microvascular ischemia and involutional changes. Electronically authenticated by: ORESTES GARIBAY Date: 11/10/2023 14:58 Dictated By: ORESTES GARIBAY M.D. Signed By: 11/10/23 1501 DD/ 1458 TD/TT: Wrapper Sorter: Procedure Note Radiology, Radiologist, MD - 11/10/2023 [place] [address] Magnetic Resonance Report Signed Patient: GEORGE STYLES [facility]#: [id number] : 1970Acct:[id number] Age/Sex: 53 / MADM Date: 11/10/23 Loc: MRI Attending Dr: CAESAR TEIXEIRA Ordering Physician: CAESAR TEIXEIRA Date of Service: 11/10/23 Procedure(s): MR head/brain wo con Accession Number(s): [id number] cc: Mihaela Bruno TRACK INSPECTOR; CAESAR TEIXEIRA [place] [address] Patient Name: GEORGE STLYES MRN: [id number] date: 1970 Sex: M Assigned Patient Location: MRI Current Patient Location: MRI Accession/Order Number: [id number] Exam Date: 11/10/2023 13:00 Report Date: 11/10/2023 14:58 At the request of: CAESAR TEIXEIRA Procedure: MR head/brain wo con EXAM: MR head/brain wo con HISTORY: Tremor COMPARISON: MRI brain 08/23/2018 TECHNIQUE: MRI of the brain was performed without contrast. FINDINGS: There is no restricted diffusion to suggest acute infarct. There is nomidline shift, mass effect, or abnormal extraaxial fluid collections. Mild enlarged cortical sulci, consistent with age appropriate cerebral atrophy. There are nonspecific scattered foci of T2/FLAIR signal abnormality in the subcortical and periventricular white matter, which appear stable [id number]. Statistically, these are most likely based on chronic microvascularischemia for this age. The major intracranial flow voids are visualized. The cerebellar tonsilsare normal in position. The orbits are unremarkable. The calvarium and extracranial soft tissuesare unremarkable. The paranasal sinuses and mastoid air cells are clear. MR/MR head/brain wo con IMPRESSION: No acute intracranial abnormality. Mild chronic microvascular ischemia and involutional changes. Electronically authenticated by: ORESTES GARIBAY Date: 11/10/2023 14:58 Dictated By: ORESTES GARIBAY M.D. Signed By:11/10/23 1501 DD/ 1457 TD/TT: Wrapper Sorter: us Generic External Data Provider [facility] Final Result documented in this encounter Visit Diagnoses Not on filedocumented in this encounter Care Teams Feather Drying Machine Operator Relationship Specialty Start Date End Date Momo Verdugo MD PCP - General Family Medicine 05/21/23 02/10/24 Momo Verdugo MD [address] [place] [address] PCP - General Family Medicine 02/11/24 Momo Verdugo MD [address] [place] [address] PCP - Aet 12/31/24 Mihaela Bruno NP [address] [place] [address] Nurse Practitioner Family Medicine 02/11/24 Kasandra Thomas DO [address] [place] [address] Referring Physician Neurology 02/17/24 documented as of this encounter
--- OUTSIDE RECORDS SUMMARY | 2025-05-02 06:35 | XMS_ITS | Encounter Summary ---
Author Organization [facility] enter Address [address] [place] [address] Care Team Providers Care Testboard Operator Name Role Phone Mihaela Bruno CNP Primary Care Provider [phone] Comfort Rivera [facility] Unavailable [phone] Angel Carpio Unavailable Unavailable Te Leigh [facility],PharmD Unavailable Unavai Evan Valdivia DO Unavailable [phone] Evan White DO Unavailable [phone] Encounter Details Date Type Department Care Team (Late st Contact Info) Description 02/17/2020 Documentation Only [facility]ICAL [facility] TISSUE TYPING [facility] [address] [place] [phone] Orders, Other Social History Tobacco Use Types Packs/Day [...] have Coronavirus / COVID-19? Unable to assess 02/20/2020 8:17 AM EDT documented as of this encounter Functional Status * Are you deaf or do you have serious difficulty hearing? Answer Date of Assessment Author No 07/24/2019 10:27 PM Bushra Hayward RN * Are you blind or do you have serious difficulty seeing, even when wearing glasses? Answer Date of Assessment Author No 07/24/2019 10:27 PM Bushra Hayward RN * Do you have serious difficulty walking or climbing stairs (5 years or older)? Answer Date of Assessment Author No 07/24/2019 10:27 PM Bushra Hayward RN * Do you have difficulty dressing or bathing (5 yrs or older)? Answer Date of Assessment Author No 07/24/2019 10:27 PM Bushra Hayward RN * Because of a physical, mental, or emotional condition, do you have difficulty doing errands alone such as visiting a doctor's office or shopping (5 yrs or older)? Answer Date of Assessment Author No 07/24/2019 10:27 PM Bushra Hayward RN documented as of this encounter Mental Status * Because of a physical, mental, or emotional condition, do you have serious difficulty concentrating, remembering, or making decisions (5 yrs or older)? Answer Entry Date Author No 07/24/2019 10:27 PM Bushra Hayward RN documented in this encounter Plan of Treatment Upcoming Encounters Date Type Department Care Team (Late st Contact Info) Description 08/04/2025 10:00 AM EDT Office Visit [facility] [address] [place] [address] 08/11/2025 10:30 AM EDT Office Visit [facility] Transplant [place] [facility] [address] [place] [address] Rebeca Gutierrez APRN-ROB [address] [place] [address] documented as of this encounter Visit Diagnoses Not on filedocumented in this encounter Additional Health Concerns Infection Onset Date Last Indicated Resolved Time R/O Hepatitis A 04/09/2020 04/09/2020 04/09/2020 1 0:56 AM EDT COVID-19 Suspected 04/09/2020 04/09/2020 0 1:50 AM EDT R/O Hepatitis A 04/12/2020 04/12/2020 04/12/2020 5 :50 PM EDT COVID-19 Suspected 04/12/2020 04/12/2020 0 5:04 PM EDT COVID-19 Suspected 05/10/2020 05/10/2020 0 1:03 PM EDT R/O C. Diff 05/10/2020 05/10/2020 05/10/2020 9:18 PM EDT COVID-19 Suspected 05/16/2022 05/16/2022 2 6:25 AM EDT COVID-19 Suspected 08/28/2023 08/28/2023 3 7:52 PM EDT R/O Respiratory Virus 08/28/2023 08/28/20232022 11:55 PM EDT COVID-19 Suspected 08/28/2023 08/28/2023 3 11:55 PM EDT documented as of this encounter Care Teams Testboard Operator Relationship Specialty Start Date End Date Mihaela Bruno CNP PCP - General 07/19/18 Comfort Rivera [facility] [address] [place] [address] [address] [place] [address] Pharmacist Pharmacist 05/16/20 05/14/22 Angel Carpio Pharmacist Pharmacist 05/16/20 05/14/22 Te Leigh [facility],PharmD Pharmacist Pharmacist 01/09/21 Evan White DO [address] [place] [address] Infectious Disease Infectious Disease 09/09/23 03/14/24 Evan White DO [address] [place] [address] Infectious Disease Infectious Disease 09/08/24 4 documented as of this encounter
--- OUTSIDE RECORDS SUMMARY | 2025-05-02 06:35 | XMS_ITS | Encounter Summary ---
Author Organization [facility] enter Address [address] [place] [address] Care Team Providers Care Sand Screener Operator Name Role Phone Mihaela Bruno CNP Primary Care Provider [phone] Comfort Rivera [facility] Unavailable [phone] Angel Carpio Unavailable Unavailable Te Leigh [facility],PharmD Unavailable Unavai Evan Valdivia DO Unavailable [phone] Evan White DO Unavailable [phone] Encounter Details Date Type Department Care Team (Late st Contact Info) Description 02/17/2020 Documentation Only [facility]INICAL LAB TISSUE TYPING [facility] [address] [place] [phone] Orders, Other Social History Tobacco Use Types [...] Visit [facility] [address] [place] [address] 08/11/2025 10:30 AM EDT Office Visit [facility] Transplant [place] [facility] Sp[facility] [address] [place] [address] Rebeca Gutierrez APRN-ROB [address] [place] [address] documented as of this encounter Visit Diagnoses [...] documented as of this encounter Care Teams Sand Screener Operator Relationship Specialty Start Date End Date Mihaela Bruno CNP PCP - General 07/19/18 Comfort Rivera [facility] [address] [place] [address] [address] [place] [address] Pharmacist Pharmacist 05/16/20 05/14/22 Angel Carpio Pharmacist Pharmacist 05/16/20 05/14/22 Te Leigh [facility],PharmD Pharmacist Pharmacist 01/09/21 Evan White DO [address] [place] [address] Infectious Disease Infectious Disease 09/09/23 03/14/24 Evan White DO [address] [place] [address] Infectious Disease Infectious Disease 09/08/24 4 documented as of this encounter
--- OUTSIDE RECORDS SUMMARY | 2025-05-02 06:35 | XMS_ITS | Encounter Summary ---
Author Organization [facility] enter Address [address] [place] [address] Care Team Providers Care Mushroom Cutter Name Role Phone Mihaela Bruno CNP Primary Care Provider [phone] Comfort Rivera [facility] Unavailable [phone] Angel Carpio Unavailable Unavailable Te Leigh [facility],PharmD Unavailable Unavai Evan Valdivia DO Unavailable [phone] Evan White DO Unavailable [phone] Reason for Visit * Reason Onset Date Comments Order Request 08/17/2019 Encounter Details Date Type Department Care Team (Late st Contact Info) Description 08/17/2019 Telephone Gastroenterology and Hepatology [facility] [address] [phone] Rey Wild Order Request Social History Tobacco Use Types Packs/Day Years [...] Bushra Hayward RN documented in this encounter Miscellaneous Notes * Telephone Encounter - Zena Tam RN - 08/17/2019 12:47 PM EDT OCT 11. Dr. Dominga Tracy ECHO: ordered 08/02/19 patient OLT Comments Transthoracic echo with agitated saline (Ph# [phone], fax #[phone]) Routed to pre txp as test ordered for OLT workup, may need done at [facility] Routed to scheduling to contact patient and reschedule f/up that was bumped from 11/14 * Telephone Encounter - Rey Wild - 08/17/2019 12:25 PM EDT Provider: Christin Elizabeth APRN-RIDDLER OPERATOR Order request (lab,imaging, procedure): ECHOCARDIOGRAM If going outside of [facility] please obtain the following information: Name of facility: [facility] Phone number of facility: [phone] Fax number of facility: the pt reports that he does not have this number Preferred call back time: [phone] The pt reports that he would like a call back in regard to this matter. *Patient is aware of the 24-48 hour turn around time* documented in this encounter Plan of Treatment Upcoming Encounters Date Type Department Care Team (Late st Contact Info) Description 08/04/2025 10:00 AM EDT Office Visit [facility] Transplant [place] [facility] [address] [place] [address] 08/11/2025 10:30 AM EDT Office Visit [facility] Transplant [facility] [address] [place] [address] Rebeca Gutierrez, VEHICLE MECHANIC-RIDDLER OPERATOR [address] [place] [address] documented as of this encounter Visit Diagnoses [...] documented as of this encounter Care Teams Mushroom Cutter Relationship Specialty Start Date End Date Mihaela BrunoROB PCP - General 07/19/18 Comfort Rivera [facility] [address] [facility] [address] [place] [address] Pharmacist Pharmacist 05/16/20 05/14/22 Angel Carpio Pharmacist Pharmacist 05/16/20 05/14/22 Te Leigh [facility],PharmD Pharmacist Pharmacist 01/09/21 Evan White DO [address] [place] [address] Infectious Disease Infectious Disease 09/09/23 03/14/24 Evan White DO [address] [place] [address] Infectious Disease Infectious Disease 09/08/24 4 documented as of this encounter
--- OUTSIDE RECORDS SUMMARY | 2025-05-02 06:35 | XMS_ITS | Encounter Summary ---
Author Organization [facility] enter Address [address] [place] [address] Care Team Providers Care Emergency Medicine Name Role Phone Mihaela Bruno CNP Primary Care Provider [phone] Comfort Rivera [facility] Unavailable [phone] Angel Carpio Unavailable Unavailable Te Leigh [facility],PharmD Unavailable Unavai Evan Valdivia DO Unavailable [phone] Evan White DO Unavailable [phone] Encounter Details Date Type Department Care Team (Late st Contact Info) Description 10/13/2019 [place] [facility] [address] [place] [address] Sophie Cary, SAMI Social History Tobacco Use Types Packs/Day [...] encounter Miscellaneous Notes * Telephone Encounter - Sophie Cary RN - 10/13/2019 5:08 PM EST Earlier cardiology appointment has opened up on 11/14 @ 8:00am. Left voicemail for patient requesting return call. documented in this encounter Plan of Treatment Upcoming Encounters Date Type Department Care Team (Late st Contact Info) Description 08/04/2025 10:00 AM EDT Office Visit [facility] Transplant [place] [facility] and Sp[facility] [address] [place] [address] 08/11/2025 10:30 AM EDT Office Visit [facility] [place] [facility] [address] [place] [address] Rebeca Gutierrez, SPEECH LANGUAGE PATHOLOGIST-WATER RESOURCE PROJECT MANAGER [address] [place] [address] documented as of this encounter Visit Diagnoses [...] documented as of this encounter Care Teams Emergency Medicine Relationship Specialty Start Date End Date Mihaela Bruno CNP PCP - General 07/19/18 Comfort Rivera [facility] [address] [facility] [address] [place] [address] Pharmacist Pharmacist 05/16/20 05/14/22 Angel Carpio Pharmacist Pharmacist 05/16/20 05/14/22 Te Leigh, [facility],PharmD Pharmacist Pharmacist 01/09/21 Evan White DO [address] [place] [address] Infectious Disease Infectious Disease 09/09/23 03/14/24 vEan White DO [address] [place] [address] Infectious Disease Infectious Disease 09/08/24 4 documented as of this encounter
--- OUTSIDE RECORDS SUMMARY | 2025-05-02 06:35 | XMS_ITS | Encounter Summary ---
Author Organization [facility] enter Address [address] [place] [address] Care Team Providers Care Fuller Brush Worker Name Role Phone Mihaela Bruno CNP Primary Care Provider [phone] Comfort Rivera [facility] Unavailable [phone] Angel Carpio Unavailable Unavailable Te Leigh [facility],PharmD Unavailable Unavai Evan Valdivia DO Unavailable [phone] Evan White DO Unavailable [phone] Encounter Details Date Type Department Care Team (Late st Contact Info) Description 04/13/2020 Orders Only [facility] [address] [place] [address] Shaw Broussard ESRD (end stage renal disease) (Primary Dx) Social History Tobacco Use Types Packs/Day Years [...] have Coronavirus / COVID-19? Unable to assess 04/15/2020 11:31 PM EDT documented as of this encounter Functional Status * Are you deaf or do you have serious difficulty hearing? Answer Date of Assessment Author No 04/12/2020 2:43 PM EDT Hill Abebe RN * Are you blind or do you have serious difficulty seeing, even when wearing glasses? Answer Date of Assessment Author No 04/12/2020 2:43 PM EDT Hill Abebe RN * Do you have serious difficulty walking or climbing stairs (5 years or older)? Answer Date of Assessment Author No 04/12/2020 2:43 PM EDT Hill Abebe RN * Do you have difficulty dressing or bathing (5 yrs or older)? Answer Date of Assessment Author No 04/12/2020 2:43 PM EDT Hill Abebe RN * Because of a physical, mental, or emotional condition, do you have difficulty doing errands alone such as visiting a doctor's office or shopping (5 yrs or older)? Answer Date of Assessment Author No 04/12/2020 2:43 PM EDT Hill Abebe RN documented as of this encounter Mental Status * Because of a physical, mental, or emotional condition, do you have serious difficulty concentrating, remembering, or making decisions (5 yrs or older)? Answer Entry Date Author No 04/12/2020 2:43 PM EDT Hill Abebe RN documented in this encounter Plan of Treatment Upcoming Encounters Date Type Department Care Team (Late st Contact Info) Description 08/04/2025 10:00 AM EDT Office Visit [facility] [address] [place] [address] 08/11/2025 10:30 AM EDT Office Visit [facility] Transplant [place] [facility] Spine [facility] [address] [place] [address] Rebeca Gutierrez APRN-ROB [address] [place] [address] documented as of this encounter Procedures Procedure Name Priority Date/Time Associated Diagnosis Comments SURG PATH REQUEST Routine 04/13/2020 1:3 5 AM EDT ESRD (end stage renal disease) documented in this encounter Results * SURG PATH REQUEST (04/13/2020 1:35 AM EDT) Case Report Surgical Pathology Report Case: [id number] Authorizing Provider: LU Palma Collected: 04/13/2020 01:35 AM Ordering Location: [facility] Received: 04/13/2020 09:18 AM [place] Pathologist: Yuan Groves MD, PhD Specimen: SURG PATH 04/16/2020 5:36 PM EDT [facility] Clinical History 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 Cold ischemia time is not provided. 04/16/2020 5:36 PM EDT [facility] Pathologic Diagnosis A. Kidney, baseline biopsy of allograft: Subcapsular renal cortex with mild nonspecific changes Note: Mild preservation injury is noted 04/16/2020 5:36 PM EDT [facility] at 1736 EDT Microscopic Description A microscopic examination was performed. LIGHT MICROSCOPY (H&E) Glomeruli # of glomeruli Up to 50 glomeruli Glomerular sclerosis CADI 0 Global 0 Segmental 0 Glomerular hyalin change 0 Banff CG* 0 Glomerular capillary thickening 0 Mesangial expansion CADI 0 Glomerulitis* 0 Fibrin thrombi 0 Fragmented RBCs 0 Glomerular enlargement 1+ Periglomerular fibrosis 0 Other Tubulointerstitium Total Interstitial inflammation, CADI 0 Mononuclear cells 0 Plasma cells 0 Eosinophils 0 PMNs 0 Interstitial inflammation in nonfibrotic areas* 0 Mononuclear cells 0 Plasma cells 0 Eosinophils 0 PMNs 0 Interstitial edema 0 Interstitial hemorrhage 0 Peritubular capillary margination 0 Tubulitis* 0 Atrophic tubulitis 0 Tubular epithelial vacuolization 2+ ATN 1+ Apoptotic/necrotic debris in tubules 0 PMNs in tubules 0 Tubular calcification 0 Casts 0 Tubular atrophy*, CADI 0 Tubular hypertrophy 0 Interstitial fibrosis*, CADI 0 Other Vasculature Banff v* 0 Intimal arteritis 0 Vascular fibrinoid necrosis 0 Intimal thickening*, CADI 0 Mucoid intimal thickening 0 Fibrous intimal thickening 0 Arterial/arteriola r fibrin thrombi 0 Fragmented RBCs 0 Banff ah* 0 Subendothelial arteriolar hyalin 0 Peripheral nodular arteriolar hyalin 0 Mucoid arteriolar thickening 0 Other IMMUNOFLUORESCENCE , INDIRECT (C4d) # of glomeruli N/A Peritubular capillaries Glomerular capillaries Mesangium Tubular basement membrane Arterial/arteriola r wall Other CADI Score: 0 Modified CADI: 0 Grading is done on a semiquantitative scale of 0-3+. 0: No lesion, +/-: borderline 1+: mild, 2+: moderate, 3+: severe, NA: not applicable. In some instances the percentage of involvement is given *: Indicates variables included in the Banff grading system 04/16/2020 5:36 PM EDT [facility] Gross Description The specimen is received in one properly labeled container with the patient's name and accession number. A. The specimen is designated baseline donor kidney biopsy for H&E only and consists of one soft aguero tissue wedge measuring 0.9 x 0.4 x 0.3 cm. TE 1 Lab Use Only: JobID [id number] Grosser for this case was: Starla Maddox 04/16/2020 5:36 PM EDT [facility] Images 04/16/2020 5:36 PM EDT [facility] Tissue (SURG PATH) 04/13/2020 1:35 AM EDT 04/13/2020 9:18 AM EDT us Renee LEIGH SURG PATH Final R esult [facility] [address] [address] documented in this encounter Visit Diagnoses Diagnosis ESRD (end stage renal disease)- Primary End stage renal disease documented in this encounter Additional Health Concerns Infection Onset Date Last Indicated Resolved Time COVID-19 Suspected 05/10/2020 05/10/2020 0 1:03 PM EDT R/O C. Diff 05/10/2020 05/10/2020 05/10/2020 9:18 PM EDT COVID-19 Suspected 05/16/2022 05/16/2022 2 6:25 AM EDT COVID-19 Suspected 08/28/2023 08/28/2023 3 7:52 PM EDT R/O Respiratory Virus 08/28/2023 08/28/20232022 11:55 PM EDT COVID-19 Suspected 08/28/2023 08/28/2023 11:55 PM EDT documented as of this encounter Care Teams Fuller Brush 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 Start Date End Date Mihaela Bruno CNP PCP - General 07/19/18 Comfort Rivera, [facility] [address] [facility] [address] [place] [address] Pharmacist Pharmacist 05/16/20 05/14/22 Angel Carpio Pharmacist Pharmacist 05/16/20 05/14/22 Te Leigh, [facility],PharmD Pharmacist Pharmacist 01/09/21 Evan White DO [address] [place] [address] Infectious Disease Infectious Disease 09/09/23 03/14/24 Evan White DO [address] [place] [address] Infectious Disease Infectious Disease 09/08/24 4 documented as of this encounter
--- OUTSIDE RECORDS SUMMARY | 2025-05-02 06:35 | XMS_ITS | Encounter Summary ---
Author Organization [facility] Address [address] [place] [address] Care Team Providers Care Sleeve Turner Name Role Phone Momo Verdugo MD Primary Care Provider [phone] Mihaela Bruno AIRLINE FLIGHT ATTENDANT Unavailable [phone] Kasandra Thomas DO Unavailable [phone] Momo Verdugo MD Unavailable Reason for Visit * Reason Comments Med Refill Encounter Details Date Type Department Care Team (Late st Contact Info) Description 01/31/2025 Refill [facility] [address] [place] [address] Mihaela Bruno, BA [address] [place] [address] Primary hypertension (CMS/HCC) Social History Tobacco Use [...] week 02/11/2024 How often do you attend amish or jew serv ices? Never 02/11/2024 Do you belong to any clubs o r organizations such as amish groups, unions, fraternal or athletic groups, or [...] Recorded Patient Health Questionnaire-2 Score 0 02/11/2024 [facility] - Occupational Stress Questionnaire Answer [...] place to sleep or slept in a halfway (including now)? No 10/27/2023 Sex and Gender Information Value Date Recorded Sex Assigned at Not on file Legal Sex Male 7:07 PM EDT Gender Identity Not on file Sexual Orientation Not on file documented as of this encounter Plan of Treatment Upcoming Encounters Date Type Department Care Team (Late st Contact Info) Description 05/11/2025 10:00 AM EDT Office [facility] [address] [place] [address] Mihaela Bruno NP [address] [place] [address] 09/19/2025 9:30 AM EDT Office Visit [facility] [address] [place] [address] Tony Hernandez MD [address] [place] [address] documented as of this encounter Visit Diagnoses Diagnosis Primary hypertension (CMS/HCC) Unspecified essential hypertension documented in this encounter Additional Health Concerns Assessment Noted Time PHQ-9 Depression Total Score: 2 02/11/20 10:49 AM EDT documented as of this encounter Care Teams Sleeve Turner Relationship Specialty Start Date End Date Momo Verdugo MD [address] [place] [address] PCP - General Family Medicine 02/11/24 Momo Verdugo MD [address] [place] [address] PCP - Aet 12/31/24 Mihaela Bruno NP [address] [place] [address] Nurse Practitioner Family Medicine 02/11/24 Kasandra Thomas DO [address] [place] [address] Referring Physician Neurology 02/17/24 documented as of this encounter
--- OUTSIDE RECORDS SUMMARY | 2025-05-02 06:35 | XMS_ITS | Encounter Summary ---
Author Organization [facility] Address [address] [place] [address] Care Team Providers Care Finance Controller Name Role Phone Unavailable Primary Care Provider Unavailabl e Reason for Visit * Reason Comments Medication Refill Encounter Details Date Type Department Care Team (Late st Contact Info) Description 11/08/2019 Refill [facility] [address] [facility] [place] [phone] Mateo Gilbert MD [address] [facility] [place] [id number] Medication Refill Social History Tobacco Use Types Packs/Day [...] as of this encounter Plan of Treatment Not on file documented as of this encounter Visit Diagnoses Not on filedocumented in this encounter
--- OUTSIDE RECORDS SUMMARY | 2025-05-02 06:35 | XMS_ITS ---
Author Organization [facility] Address [address] [place] [address] Care Team Providers Care Card Cutter Name Role Phone Unavailable Unavailable Unavailable Allergies, Adverse Reactions, Alerts This patient has no known allergies or adverse reactions. Problems This patient has no known problems.
--- OUTSIDE RECORDS SUMMARY | 2025-05-02 06:35 | XMS_ITS | Encounter Summary ---
Author Organization [facility] Address [address] [facility] [place] [address] Care Team Providers Care Offbearer Sewer Pipe Name Role Phone Momo Verdugo MD Primary Care Provider [phone] Momo Verdugo MD Primary Care Provider [phone] Miahela Bruno PRODUCT HANDLER Unavailable [phone] Kasandra Thomas DO Unavailable [phone] Momo Verdugo MD Unavailable Encounter Details Date Type Department Care Team (Late st Contact Info) Description 02/01/2024 Orders Only [facility] [address] [place] [address] Mihaela Bruno, PRODUCT HANDLER [address] [place] [address] Social History Tobacco Use Types Packs/Day Years [...] week 10/27/2023 How often do you attend yazidi or faith serv ices? Never 10/27/2023 Do you belong to any clubs o r organizations such as yazidi groups, unions, fraternal or athletic groups, or [...] Answer Date Recorded Patient Health Questionnaire-2 Score 2 01/06/2024 [facility] Occupat ional Health - Occupational [...] place to sleep or slept in a skilled nursing (including now)? No 10/27/2023 Sex and Gender Information Value Date Recorded Sex Assigned at Not on file Legal Sex Male 7:07 PM EDT Gender Identity Not on file Sexual Orientation Not on file documented as of this encounter Plan of Treatment Upcoming Encounters Date Type Department Care Team (Late st Contact Info) Description 05/11/2025 10:00 AM EDT [facility] [address] [place] [phone] Mihaela Bruno NP [address] [place] [address] 09/19/2025 9:30 AM EDT Office Visit [facility] [address] [place] [phone] Tony Hernandez MD [address] [place] [address] documented as of this encounter Procedures Procedure Name Priority Date/Time Associated Diagnosis Comments ELECTROCARDIOGRAM REPORT Routine 024 10:24 AM EST documented in this encounter Results * Electrocardiogram Report (01/15/2024 10:24 AM EST) Mihaela Bruno PRODUCT HANDLER IN CLINIC/BEDSIDE ORDERABLES Fi nal Result documented in this encounter Visit Diagnoses Not on filedocumented in this encounter Care Teams Offbearer Sewer Pipe Relationship Specialty Start Date End Date Momo Verdugo MD PCP - General Family Medicine 05/21/23 02/10/24 Momo Verdugo MD [address] [place] [address] PCP - General Family Medicine 02/11/24 Momo Verdugo MD [address] [place] [address] PCP - [employer] 12/31/24 Mihaela Bruno NP [address] [place] [address] Nurse Practitioner Family Medicine 02/11/24 Kasandra Thomas DO [address] [place] [address] Referring Physician Neurology 02/17/24 documented as of this encounter
--- OUTSIDE RECORDS SUMMARY | 2025-05-02 06:35 | XMS_ITS | Encounter Summary ---
Author Organization [facility] enter Address [address] [place] [address] Care Team Providers Care Health Consultant Name Role Phone Miheala Bruno CNP Primary Care Provider [phone] Comfort Rivera [facility] Unavailable [phone] Angel Carpio Unavailable Unavailable Te Leigh [facility],PharmD Unavailable Unavai Evan Valdivia DO Unavailable [phone] Evan White DO Unavailable [phone] Encounter Details Date Type Department Care Team (Late st Contact Info) Description 02/17/2020 Documentation Only CLINICAL LAB TISSUE TYPING [facility] [address] [place] [phone] Orders, Other Social History Tobacco Use Types [...] Visit [facility] [address] [place] [address] 08/11/2025 10:30 AM EDT Office [facility] [address] [place] [address] Rebeca Gutierrez APRN-ROB [address] [place] [address] documented as of this encounter Visit Diagnoses [...] documented as of this encounter Care Teams Health Consultant Relationship Specialty Start Date End Date Mihaela Bruno CNP PCP - General 07/19/18 Comfort Rivera [facility] [address] [place] [address] [address] [place] [address] Pharmacist Pharmacist 05/16/20 05/14/22 Angel Carpio Pharmacist Pharmacist 05/16/20 05/14/22 Te Leigh [facility],PharmD Pharmacist Pharmacist 01/09/21 Evan White DO [address] [place] [address] Infectious Disease Infectious Disease 09/09/23 03/14/24 Evan White DO [address] [place] [address] Infectious Disease Infectious Disease 09/08/24 4 documented as of this encounter
--- OUTSIDE RECORDS SUMMARY | 2025-05-02 06:35 | XMS_ITS | Encounter Summary ---
Author Organization [facility] Address [address] [place] [address] Care Team Providers Care Dental Laboratory Supervisor Name Role Phone Momo Verdugo MD Primary Care Provider [phone] Momo Verdugo MD Primary Care Provider [phone] Mihaela Bruno COFFEE ROASTER HELPER Unavailable [phone] Kasandra Thomas DO Unavailable [phone] Momo Verdugo MD Unavailable Encounter Details Date Type Department Care Team (Late st Contact Info) Description 11/03/2023 [facility] [address] [place] [address] Miahela Bruno, COFFEE ROASTER HELPER [address] [place] [address] Social History Tobacco Use Types Packs/Day Years [...] week 10/27/2023 How often do you attend evangelical or yazidism serv ices? Never 10/27/2023 Do you belong to any clubs o r organizations such as evangelical groups, unions, fraternal or athletic groups, or [...] and heating? Not hard at all 10/27/2023 [facility]at ional Health - Occupational [...] 10:00 AM EDT Office Visit [facility] [address] [place] [address] Mihaela Bruno NP [address] [place] [phone] 09/19/2025 9:30 AM EDT Office Visit [facility] [address] [place] [phone] Tony Hernandez MD [address] [place] [address] documented as of this encounter Visit Diagnoses Not on filedocumented in this encounter Care Teams Dental Laboratory Supervisor Relationship Specialty Start Date End Date Momo Verdugo MD PCP - General Family Medicine 05/21/23 02/10/24 Momo Verdugo MD [address] [place] [address] PCP - General Family Medicine 02/11/24 Momo Verdugo MD [address] [place] [address] PCP - [employer] 12/31/24 Mihaela Bruno NP [address] [place] [address] Nurse Practitioner Family Medicine 02/11/24 Kasandra Thomas DO [address] [place] [address] Referring Physician Neurology 02/17/24 documented as of this encounter
--- OUTSIDE RECORDS SUMMARY | 2025-05-02 06:35 | XMS_ITS | Encounter Summary ---
Author Organization [facility] Address [address] [place] [address] Care Team Providers Care Pattern Setter Name Role Phone Momo Verdugo MD Primary Care Provider [phone] Mihaela Bruno COTTON BALL BAGGER Unavailable [phone] Kasandra Thomas DO Unavailable [phone] Momo Verdugo MD Unavailable Encounter Details Date Type Department Care Team (Late st Contact Info) Description 2024 Orders Only [facility] [address] [place] [address] Mihaela Bruno NP [address] [place] [address] Social History Tobacco Use Types Packs/Day Years [...] week 02/11/2024 How often do you attend caodaism or moravian serv ices? Never 02/11/2024 Do you belong to any clubs o r organizations such as caodaism groups, unions, fraternal or athletic groups, or [...] Recorded Patient Health Questionnaire-2 Score 0 02/11/2024 [facility] Occupat ional Health - Occupational [...] 05/11/2025 10:00 AM EDT [facility] [address] [place] [address] Mihaela Bruno NP [address] [place] [address] 09/19/2025 9:30 AM EDT Office Visit [facility] [address] [place] [phone] Tony Hernandez MD [address] [place] [address] documented as of this encounter Visit Diagnoses Not on filedocumented in this encounter Additional Health Concerns Assessment Noted Time PHQ-9 Depression Total Score: 2 02/11/20 10:49 AM EDT documented as of this encounter Care Teams Pattern Setter Relationship Specialty Start Date End Date Momo Verdugo MD [address] [place] [address] PCP - General Family Medicine 02/11/24 Momo Verdugo MD [address] [place] [address] PCP - Aet 12/31/24 Mihaela Bruno NP [address] [place] [address] Nurse Practitioner Family Medicine 02/11/24 Kasandra Thomas DO [address] [place] [address] Referring Physician Neurology 02/17/24 documented as of this encounter
--- OUTSIDE RECORDS SUMMARY | 2025-05-02 06:35 | XMS_ITS | Encounter Summary ---
Author Organization [facility] Address [address] [place] [address] Care Team Providers Care Special Technical Operations Officer Name Role Phone Mihaela Bruno CNP Primary Care Provider [phone] Comfort Rivera [facility] Unavailable Angel Carpio Unavailable Unavailable Te Leigh [facility],PharmD Unavailable Unavai Evan Valdivia DO Unavailable [phone] Evan White DO Unavailable [phone] Encounter Details Date Type Department Care Team (Late st Contact Info) Description 11/29/2019 Orders Only CLINICAL LAB TISSUE TYPING [facility] [address] [place] [address] Orders, Other Pre-transplant evaluation for kidney transplant Social History Tobacco Use Types [...] 10:00 AM EDT Office [facility] [address] [place] [address] 08/11/2025 10:30 AM EDT Office Visit [facility] [address] [place] [address] Rebeca Gutierrez APRN-ROB [address] [place] [address] documented as of this encounter Visit Diagnoses Diagnosis Pre-transplant evaluation for kidney transplant documented in this encounter Additional [...] documented as of this encounter Care Teams Special Technical Operations Officer Relationship Specialty Start Date End Date Mihaela Bruno, HAIR ROOTING MACHINE OPERATOR PCP - General 07/19/18 Comfort Rivera [facility] [address] [place] [address] [id number] [place] [id number] Pharmacist Pharmacist 05/16/20 05/14/22 Angel Carpio Pharmacist Pharmacist 05/16/20 05/14/22 Te Leigh, [facility],PharmD Pharmacist Pharmacist 01/09/21 Evan White DO [email or web address] [address] Infectious Disease Infectious Disease 09/09/23 03/14/24 Evan White DO [email or web address] [address] Infectious Disease Infectious Disease 09/08/24 4 documented as of this encounter
--- OUTSIDE RECORDS SUMMARY | 2025-05-02 06:35 | XMS_ITS | Encounter Summary ---
Author Organization [facility] Address [address] [place] [address] Care Team Providers Care Data Warehouse Manager Name Role Phone Momo Verdugo MD Primary Care Provider [phone] Mihaela Bruno NP Unavailable [phone] Kasandra Thomas DO Unavailable [phone] Momo Verdugo MD Unavailable Encounter Details Date Type Department Care Team (Late st Contact Info) Description 05/20/2024 Clinisync Result Encounter [facility] Unsolicited [...] week 02/11/2024 How often do you attend temple or bahai serv ices? Never 02/11/2024 Do you belong to any clubs o r organizations such as temple groups, unions, fraternal [...] Recorded Patient Health Questionnaire-2 Score 0 02/11/2024 [facility] Occupat ional Health - Occupational Stress [...] place to sleep or slept in a long term (including now)? No 10/27/2023 Sex and Gender Information Value Date Recorded Sex Assigned at Not on file Legal Sex Male 7:07 PM EDT Gender Identity Not on file Sexual Orientation Not on file documented as of this encounter Plan of Treatment Upcoming Encounters Date Type Department Care Team (Late st Contact Info) Description 05/11/2025 10:00 AM EDT [facility] [address] [place] [address] Mihaela Bruno NP [address] [place] [address] 09/19/2025 9:30 AM EDT Office Visit [facility] [address] [place] [phone] Tony Hernandez MD [address] [place] [address] documented as of this encounter Procedures Procedure Name Priority Date/Time Associated Diagnosis Comments CA ECHO DOPPLER COMPLETE 05/20/2024 6:07 PM EDT documented in this encounter Results * CA ECHO DOPPLER COMPLETE (05/20/2024 6:07 PM EDT) Anatomical Region Laterality Modality Other 05/20/2024 6:07 PM EDT Narrative 05/20/2024 6:07 [place] [address] Cardiology Report Signed Patient: GEORGE STYLES MR#: [id number] : 1970 Acct:[id number] Age/Sex: 54 / M ADM Date: 05/18/24 Loc: CARD Attending Dr: SHYANN LUBIN Ordering Physician: SHYANN LUBIN Date of Service: 05/18/24 Procedure(s): CA echo doppler complete Accession Number(s): [id number] cc: Mihaela Bruno CLEANING SPECIALIST; SHYANN LUBIN Patient Name: GEORGE STYLES MR#: [id number] : 1970 Exam Date: 05/18/2024 Ordering Doctor: DR SHYANN LUBIN M.D. ECHOCARDIOGRAM REPORT PROCEDURE: CA ECHO DOPPLER COMPLETE INDICATIONS: Pericardial effusion COMPARISON: None. DESCRIPTION: COMPLETE ECHOCARDIOGRAM Real-time transthoracic echocardiography with 2D, M-mode, spectral and color flow Doppler performed. QUALITY: Technical quality was good. 67 , 185#, BP 120/64 LEFT VENTRICLE: Normal chamber size. Thickened septal wall. Normal systolic function. LV EF: Normal left ventricular ejection fraction, (55%). DIASTOLIC: Normal diastolic function. ATRIAL SEPTUM: Visually appears intact. LEFT ATRIUM: Normal chamber size. RIGHT ATRIUM: Normal chamber size. RIGHT VENTRICLE: Mild chamber dilatation. Normal right ventricular systolic function. TRICUSPID VALVE: Normal mobility and thickness. No stenosis with trivial regurgitation. No evidence of pulmonary hypertension. RVSP 29 mmHg MITRAL VALVE: Normal mobility and thickness. No evidence of mitral valve stenosis. There is no mitral annular calcification. Trivial mitral regurgitation. AORTIC VALVE: Normal trileaflet appearance. Mildly calcified aortic valve. Normal leaflet mobility. No evidence of aortic valve stenosis. Trivial aortic regurgitation. AORTIC ROOT: Normal diameter and appearance. Ascending aorta is normal in size. PULMONIC VALVE: Normal thickness and mobility. No stenosis. Trivial regurgitation. PERICARDIUM: Small mostly posterior pericardial effusion. IVC: Collapses with inspirations. IVC is normal in size. PLEURA: CONCLUSION: 1. Left ventricle is normal in size and exhibits normal systolic function. LVEF is 55%. 2. The right ventricle is mildly dilated and exhibits normal systolic function. 3. No significant valvular dysfunction. 4. Normal right-sided pressures. 5. Small mostly posterior pericardial effusion. Adult Echocardiography Procedure Report Left Ventricle LVEDD (3.7 - 5.6 cm): 5.52 cm LVESD (2.2 - 4.0 cm): 3.96 cm LVIVS thickness (0.6 - 1.2 cm): 1.20 cm LVPW thickness (0.5 - 1.0 cm): 0.88 cm e': 0.11 m/s E - e': 7.85 LVOT Max Gradient: 3.81 mm[Hg] LVOT Area (cm2): 0.98 m/s Peak Velocity (LVOT): 0.98 m/s Mean Velocity (LVOT): 0.54 m/s LVOT Diameter 2.49 cm Left Atrium LA Volume Index (2D A2C): 38.44 ml/m2 Left Atrium Systolic Dimension: 5.27 cm Mitral Valve MV E to A Ratio: 0.92 Mitral Valve A-Wave Peak Velocity: 0.91 m/s Mitral Valve E-Wave Peak Velocity: 0.83 m/s Right Ventricle Aorta AO Root Diam: 3.80 cm Ascending Ao Diam: 2.94 cm Aortic Valve AoV Area (Peak Noman): 3.94 cm2, 3.94 cm2 AoV Area (VTI): 3.61 cm2, 3.61 cm2 Peak Velocity(Antegrade Flow): 1.21 m/s Peak Gradient(Antegrade Flow): 5.84 mm[Hg] Mean Velocity(Antegrade Flow): 0.82 m/s Mean Gradient(Antegrade Flow): 3.07 mm[Hg] Velocity Time Integral: 28.50 cm Tricuspid Valve Peak Velocity (Regurgitant Flow): 2.56 m/s Pulmonic Valve Mean Gradient: 2.60 mm[Hg], 2.57 mm[Hg] Mean Velocity: 0.75 m/s, 0.74 m/s Peak Gradient: 4.78 mm[Hg], 4.78 mm[Hg] Right Atrium Right Atrium Systolic Pressure: 48.01 ml, 48.01 ml Dictated by: Shyann Lubin M.D. on 05/20/2024 at 18:03 Approved by: Shyann Lubin M.D. on 05/20/2024 at 18:07 Dictated By: SHYANN LUIBN Signed By: 05/20/241806 DD/ 06 TD/TT: Foundry Finisher: Procedure Note Radiology, Radiologist, MD - 05/20/2024 [place] [address] Cardiology Report Signed Patient: GEORGE STYLES AMR#: [id number] : 1970Acct:[id number] Age/Sex: 54 / MADM Date: 05/18/24 Loc: CARD Attending Dr: SHYANN LUBIN Ordering Physician: SHYANN LUBIN Date of Service: 05/18/24 Procedure(s): CA echo doppler complete Accession Number(s): [id number] cc: Mihaela Bruno CLEANING SPECIALIST; SHYANN LUBIN Patient Name: GEORGE STYLES MR#: [id number] : 1970 Exam Date: 05/18/2024 Ordering Doctor: DR SHYANN LUBIN M.D. ECHOCARDIOGRAM REPORT PROCEDURE: CA ECHO DOPPLER COMPLETE INDICATIONS: Pericardial effusion COMPARISON: None. DESCRIPTION: COMPLETE ECHOCARDIOGRAM Real-time transthoracic echocardiography with 2D, M-mode, spectral and color flow Dopplerperformed. QUALITY: Technical quality was good. 67 , 185#, BP 120/64 LEFT VENTRICLE: Normal chamber size. Thickened septal wall. Normal systolic function. LV EF: Normal left ventricular ejection fraction, (55%). DIASTOLIC: Normal diastolic function. ATRIAL SEPTUM: Visually appears intact. LEFT ATRIUM: Normal chamber size. RIGHT ATRIUM: Normal chamber size. RIGHT VENTRICLE: Mild chamber dilatation. Normal right ventricular systolic function. TRICUSPID VALVE: Normal mobility and thickness. No stenosis withtrivial regurgitation. No evidence of pulmonary hypertension. RVSP 29 mmHg MITRAL VALVE: Normal mobility and thickness. No evidence of mitralvalve stenosis. There is no mitral annular calcification. Trivial mitral regurgitation. AORTIC VALVE: Normal trileaflet appearance. Mildly calcified aorticvalve. Normal leaflet mobility. No evidence of aortic valve stenosis. Trivial aortic regurgitation. AORTIC ROOT: Normal diameter and appearance. Ascending aorta is normalin size. PULMONIC VALVE: Normal thickness and mobility. No stenosis. Trivial regurgitation. PERICARDIUM: Small mostly posterior pericardial effusion. IVC: Collapses with inspirations. IVC is normal in size. PLEURA: CONCLUSION: 1. Left ventricle is normal in size and exhibits normal systolic function. LVEF is 55%. 2. The right ventricle is mildly dilated and exhibits normal systolic function. 3. No significant valvular dysfunction. 4. Normal right-sided pressures. 5. Small mostly posterior pericardial effusion. Adult Echocardiography Procedure Report Left Ventricle LVEDD (3.7 - 5.6 cm): 5.52 cm LVESD (2.2 - 4.0 cm): 3.96 cm LVIVS thickness (0.6 - 1.2 cm): 1.20 cm LVPW thickness (0.5 - 1.0 cm): 0.88 cm e': 0.11 m/s E - e': 7.85 LVOT Max Gradient: 3.81 mm[Hg] LVOT Area (cm2): 0.98 m/s Peak Velocity (LVOT): 0.98 m/s Mean Velocity (LVOT): 0.54 m/s LVOT Diameter 2.49 cm Left Atrium LA Volume Index (2D A2C): 38.44 ml/m2 Left Atrium Systolic Dimension: 5.27 cm Mitral Valve MV E to A Ratio: 0.92 Mitral Valve A-Wave Peak Velocity: 0.91 m/s Mitral Valve E-Wave Peak Velocity: 0.83 m/s Right Ventricle Aorta AO Root Diam: 3.80 cm Ascending Ao Diam: 2.94 cm Aortic Valve AoV Area (Peak Noman): 3.94 cm2, 3.94 cm2 AoV Area (VTI): 3.61 cm2, 3.61 cm2 Peak Velocity(Antegrade Flow): 1.21 m/s Peak Gradient(Antegrade Flow): 5.84 mm[Hg] Mean Velocity(Antegrade Flow): 0.82 m/s Mean Gradient(Antegrade Flow): 3.07 mm[Hg] Velocity Time Integral: 28.50 cm Tricuspid Valve Peak Velocity (Regurgitant Flow): 2.56 m/s Pulmonic Valve Mean Gradient: 2.60 mm[Hg], 2.57 mm[Hg] Mean Velocity: 0.75 m/s, 0.74 m/s Peak Gradient: 4.78 mm[Hg], 4.78 mm[Hg] Right Atrium Right Atrium Systolic Pressure: 48.01 ml, 48.01 ml Dictated by: Shyann Lubin M.D. on 05/20/2024 at 18:03 Approved by: Shyann Lubin M.D. on 05/20/2024 at 18:07 Dictated By: SHYANN LUBIN Signed By:05/20/241806 DD/ 06 TD/TT: Foundry Finisher: us Generic External Data Provider [facility] Final Result documented in this encounter Visit Diagnoses Not on filedocumented in this encounter Additional Health Concerns Assessment Noted Time PHQ-9 Depression Total Score: 2 02/11/20 10:49 AM EDT documented as of this encounter Care Teams Data Warehouse Manager Relationship Specialty Start Date End Date Momo Verdugo MD [address] [place] [place] [address] PCP - General Family Medicine 02/11/24 Momo Verdugo MD [address] [place] [address] PCP - [employer] 12/31/24 Mihaela Bruno NP [address] [place] [address] Nurse Practitioner Family Medicine 02/11/24 Kasandra Thomas DO [address] [place] [address] Referring Physician Neurology 02/17/24 documented as of this encounter
--- OUTSIDE RECORDS SUMMARY | 2025-05-02 06:35 | XMS_ITS | Clinical Summary ---
Author Organization [facility] Address [address] [place] [address] [place] [address] Care Team Providers Care Narrow Fabric Loom Fixer Name Role Phone Mihaela Bruno CNP Primary Care Provider [phone] Allergies Active Allergy Reactions Criticality Noted Date Comments Shellfish-Derived Products Swelling High 9 Patient with lip and tongue swelling. Medications melatonin 3 MG tablet Take 1 tablet by mouth at bedtime as needed for Insomnia. Active aspirin 81 MG Chew Tab chewable tablet Chew 1 tablet daily. Last refill from our office. Medication can be purchased over the counter going forward. 30 tablet 10/12/2020 2:22 PM EST 0 Active faMOTIdine 20 MG tablet Take 1 tablet by mouth 2 times daily. Active amLODIPine 5 MG tablet Take 1 tablet by mouth daily. Active polyethylene glycol 17 g Pack packet Take 1 packet by mouth daily as needed. Active ondansetron 4 MG tablet Take 1 tablet by mouth every 8 hours as needed for Nausea / Vomiting. Active Gabapentin 400 MG capsule Take 1 capsule by mouth at bedtime. 3 Active Tamsulosin HCl 0.4 MG capsule Take 1 capsule by mouth daily. 90 capsule 1 4 Active Tacrolimus 0.2 MG Pack Discontinued on 10/03/24 for low Tacrolimus level. Patient started on 0.5mg capsules. 4 Active Allopurinol 100 MG tabletIndicati ons:Abnormal blood chemistry Take 2 tablets by mouth daily. 180 tablet 1 5 Active Torsemide 20 MG tablet TAKE 1 TABLET BY MOUTH DAILY 90 tablet 1 5 Active Sulfamethoxazo le-trimethopri m 800-160 MG per tablet Take 1 tablet by mouth 3 times weekly. 12 tablet 5 5 026 Active Tacrolimus (PROGRAF) 0.5 MG capsule Take 1 capsule by mouth every morning and take 1 capsule by mouth every evening. 60 capsule 5 05/01/2025 10:17 AM EDT 5 Active Mycophenolate sodium (MYFORTIC) [address] tablet DR Take 1 tablet by mouth every 12 hours. 60 tablet 5 05/01/2025 10:17 AM EDT 5 Active Mycophenolate sodium (MYFORTIC) [address] tablet DR Take 1 tablet by mouth every 12 hours. 60 tablet 5 03/27/2025 12:16 PM EDT 4 025 Discontin ued(Reord er) Active Problems Problem Noted Date Diagnosed Date Heart failure, diastolic, acute 01/20/2024 Pleural effusion on right 01/16/2024 Histoplasmosis 09/10/2023 FAYE (acute kidney injury) 05/15/2022 S/P liver transplant 05/10/2020 Nausea & vomiting 05/10/2020 Chronic liver disease and cirrhosis 04/12/2020 Overview (04/12/2020): Added automatically from request for surgery [id number] Liver failure 04/09/2020 Obesity: body mass index of 30.0-34.9 04/09/2020 Liver transplant recipient 04/08/2020 Overview (04/08/2020): Added automatically from request for surgery [id number] -donor kidney transplant recipient 07/25 ESRD (end stage renal disease) 07/24/2019 Overview (07/24/2019): Added automatically from request for surgery [id number] Liver transplant candidate 07/24/2019 Hepatic encephalopathy 10/19/2018 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 Overview (10/05/2018): Added automatically from request for surgery [id number] Pre-transplant evaluation for liver transplant 1 12/05/2017 Overview (10/05/2018): Added automatically from request for surgery [id number] End stage renal disease 06/01/2018 Essential hypertension, benign CAD (coronary artery disease) Resolved Problems Problem Noted Date Diagnosed Date Resolved Date Fever 08/28/2023 09/10/2023 Encounters Date Type Department Care Team Description 04/26/2025 Specialty Pharmacy [facility] [address] [place] [phone] Angel Carpio, [facility] 04/20/2025 Refill [facility] [address], [place] [address] Anayeli Arana, SAMI 03/29/2025 Telephone [facility] [address] [place], [place] [address] [place] [address] Yolanda Camargo Appointment 03/24/2025 Specialty Pharmacy [facility] [address] [place], [place] [address] [phone] Evan Bolton, [facility] 03/23/2025 Refill [facility] [address] [place], [place] [address] [place] [address] Anayeli Arana, SAMI 03/23/2025 Refill [facility] [address] [place] [address] Christiane Ramsey MD 03/14/2025 Results Follow-Up [facility] [address], [place] [address] Anayeli Arana, SAMI CBC, DIFF, PLATELET, MANUAL ENTER, CA, MG, PO4, MANUAL ENTER, ESTIMATED GFR, NON AMER, MANUAL ENTER, Additional followed-up results: 4 02/24/2025 Telephone [facility] [address], [place] [address] Anayeli Arana, financial planning advisor Refill 02/24/2025 Specialty Pharmacy [facility] [address] [place], [place] [address] [address] [place] [phone] Meka Munoz, [facility] 02/23/2025 [facility] [address]th [place] [phone] Genoveva Prabhakar from Last 3 Months Family History Medical History Relation Name Comments Diabetes Brother 2 brother Heart Disease - Other Brother 2 brother Hypertension Brother 2 brother Diabetes Father Heart Disease - Other Father Hypertension Father Stroke Father Diabetes Maternal Aunt Heart Disease - Other Maternal Grandfather Hypertension Maternal Grandfather Lung Cancer Maternal Grandfather Diabetes Maternal Grandmother Heart Disease - Other Maternal Grandmother Hypertension Maternal Grandmother Lung Cancer Maternal Grandmother Diabetes Mother Heart Disease - Other Mother Hypertension Mother Stroke Mother Breast Cancer Paternal Aunt Hypertension Paternal Aunt Heart Disease - Other Paternal Grandmother Heart Disease - Other Sister Relation Name Status Comments Brother 2 brother Alive Father Maternal Aunt Maternal Grandfather Maternal Grandmother Mother Paternal Aunt Alive Paternal Grandfather Paternal Grandmother Sister Alive Social History Tobacco Use Types Packs/Day Years Used Date Smoking Tobacco: Former Cigarettes 1 29.8 0 07/19/1988 - 05/14/2018 Smokeless Tobacco: Former Chew Quit: 07/19/1994 Tobacco Cessation:Counseling Given: Not Answered Alcohol Use Standard Drinks/Week Comments Not Currently 2 (1 standard drink = 0.6 oz pur e alcohol) stopped 05/14/2018 Sex and Gender Information Value Date Recorded Sex Assigned at Not on file Legal Sex Male 9:29 AM EDT Gender Identity Male 07/07/2018 3:49 PM EDT Sexual Orientation Straight 01/16/2022 3: 40 PM EST Last Filed Vital Signs Vital Sign Reading Time Taken Comments Blood Pressure 143/75 06/17/2024 8:37 AM EDT Pulse 53 06/17/2024 8:37 AM EDT Temperature 36.3 C (97.4 F) 06/17/2024 8:37 AM EDT Respiratory Rate 20 02/26/2024 9:06 AM EDT Oxygen Saturation 97% 02/26/2024 9:06 AM EDT Inhaled Oxygen Concentration - - Weight 87.1 kg (192 lb) 09/05/2024 3:06 PM EDT Height 170.2 cm (5' 7 ) 09/05/2024 3:06 PM EDT Body Mass Index 30.07 09/05/2024 3:06 PM EDT Plan of Treatment Upcoming Encounters Date Type Department Care Team (Late st Contact Info) Description 08/04/2025 10:00 AM EDT Office Visit [facility] [address] 11[address] [place] [address] 08/11/2025 10:30 AM EDT Office Visit [facility] [address] 11[address] [place] [address] Rebeca Gutierrez, TRANSPLANT NURSE PRACTITIONER-SENIOR ARCHITECT/DESIGN MANAGER [address] [place] [address] Health Maintenance Due Date Last Done Comments TETANUS 1971 PNEUMOCOCCAL VACCINE SERIES (1 of 2 - PCV) 1990 TDAP (ADULT) 1990 ZOSTER (SHINGLES) VACCINE (1 of 2) 1990 COLORECTAL CANCER SCREENING DISCUSSION 09/20/2020 09/20/2019, 07/28/2018 COVID-19 VACCINE (2 - Modern a risk series) 12/01/2023 11/03/2023, 09/30/2021, 02/21/2021, Additional history exists LIPID SCREENING 03/22/2024 03/22/2019 LUNG CANCER SCREENING 08/31/2024 08/31/2023 POTASSIUM 03/07/2026 03/07/2025, 0302/2025, 12/28/2024, Additional history exists PROSTATE CANCER SCREENING DISCUSSION Discontinued 10/12/2018 HEPATITIS C VIRUS SCREENING Completed 03/30, 04/09/2020, 07/24/2019, Additional history exists HIV SCREENING DISCUSSION Completed 023, 04/09/2020, 07/24/2019, Additional history exists INFLUENZA VACCINE Completed 11/01/2024, , 08/28/2022, Additional history exists Medical Devices Implanted Type Area Ethologist Device Identifier Shelf Expiration Date Model / Serial / Lot Stent Inlay [place] 7 X 20 - [id number] Implanted:Qty: 1 on 04/12/2020 by Renee Rivera MBBS at [facility] Explanted:2019 (Quantity not on file) N/A: Ureter [employer] 10/23/2020 [id number] / / [id number] Catheter Drainage 10.2fr 25cm Percutaneous Meño - [id number] Implanted:Qty: 1 on 05/17/2022 by Enzo Heart DO at [facility] Right: Kidney [employer] [id number] 01/22/2025 [id number] / / [id number] Description:Implant time-out completed by intra-procedural staff including this RN, technology engineer, and performing physician. The following was completed. RN reads out loud implant type/size/ expiration date, and verbalizes location. Holds package up to tech to visually verify implant details. Tech reads back package details MD verifies verbally correct implant Time-out was completed for each coil during embolization, if applicable. Procedures Procedure Name Priority Date/Time Associated Diagnosis Comments TACROLIMUS LEVEL(TROUGH),MANUA L ENTER Routine 03/07/2025 7:35 AM EDT DBILI & TBILI,AST,ALT,GGT,A LK PHOS,ALB,MANUAL ENTER Routine 03/07/2025 7:35 AM EDT CHEM 7 PANEL, MANUAL ENTER Routine 03/07/2025 7:35 AM EDT ESTIMATED GFR, , MANUAL ENTER Routine 03/07/2025 7:35 AM EDT ESTIMATED GFR, NON AMER, MANUAL ENTER Routine 03/07/2025 7:35 AM EDT CA, MG, PO4, MANUAL ENTER Routine 03/07/2025 7:35 AM EDT CBC, DIFF, PLATELET, MANUAL ENTER Routine 03/07/2025 7:35 AM EDT TACROLIMUS LEVEL(TROUGH),MANUA L ENTER Routine 01/31/2025 6:55 AM EST CBC, DIFF, PLATELET, MANUAL ENTER Routine 01/31/2025 6:55 AM EST DBILI & TBILI,AST,ALT,GGT,A LK PHOS,ALB,MANUAL ENTER Routine 01/31/2025 6:55 AM EST CHEM 7 PANEL, MANUAL ENTER Routine 01/31/2025 6:55 AM EST ESTIMATED GFR, , MANUAL ENTER Routine 01/31/2025 6:55 AM EST ESTIMATED GFR, NON AMER, MANUAL ENTER Routine 01/31/2025 6:55 AM EST CA, MG, PO4, MANUAL ENTER Routine 01/31/2025 6:55 AM EST HIV 1 AND 2 ANTIBODIES/P24 ANTIGEN Routine 09/02/2023 5:[address] CHEST WITHOUT CONTRAST Routine 08/31/2023 11:25 AM EDT HEPATITIS BATTERY, ACUTE Urgent 04/12/2020 3:37 PM EDT OUTSIDE COLONOSCOPY 09/20/2019 1 2:00 AM EDT LIPID PANEL W CALCULATED LDL Routine 03/22/2019 10:30 AM EDT Hyperlipidemia, unspecified hyperlipidemia type PSA, SCREENING Routine 10/12/2018 12:57 PM EST Alcoholic cirrhosis, unspecified whether ascites present ESRD (end stage renal disease) on dialysis Pre-transplant evaluation for liver transplant from Last 3 Months or Most Recently Relevant to Health Maintenance Results * ESTIMATED GFR, NON AMER, MANUAL ENTER (03/07/2025 7:35 AM EDT) Only the most recent of2 resultswithin the time period is included. ESTIMATED GFR, NON AMER, MANUAL ENTER 56 [facility] 03/07/2025 7:35 AM EDT Other Other LAB SEND OUTS Final Result Performing Organization Address [facility] de Phone Number LAB, [facility] [address] [place] [address] * ESTIMATED GFR, , MANUAL ENTER (03/07/2025 7:35 AM EDT) Only the most recent of2 resultswithin the time period is included. ESTIMATED GFR, , MANUAL ENTER >60 [facility], [facility] 03/07/2025 7:35 AM EDT Other Other LAB SEND OUTS Final Result Performing Organization Address [facility] de Phone Number [facility], [facility] [address] [place] [address] * TACROLIMUS LEVEL(TROUGH),MANUAL ENTER (03/07/2025 7:35 AM EDT) Only the most recent of2 resultswithin the time period is included. TACROLIMUS LEVEL(TROUGH),MA NUAL ENTER 5.7 [facility], [facility] 03/07/2025 7:35 AM EDT us Other Other LAB SEND OUTS Final Result Performing Organization Address [facility] de Phone Number [facility], [facility] [address] [place] [address] * CBC, DIFF, PLATELET, MANUAL ENTER (03/07/2025 7:35 AM EDT) Only the most recent of2 resultswithin the time period is included. BANDS (DIFF), MANUAL ENTER [facility] BASOPHIL (DIFF), MANUAL ENTER 0.9 [facility] EOSINOPHIL (DIFF), MANUAL ENTER 2.8 [facility] HEMATOCRIT (HCT), MANUAL ENTER 47.5 [facility] Hemoglobin (HGB), MANUAL ENTER 16.1 [facility] LYMPHOCYTES (DIFF), MANUAL ENTER 34.5 [facility], [facility] MONOCYTE (DIFF), MANUAL ENTER 9.1 [facility], [facility] NEUTROPHILS (DIFF), MANUAL ENTER 52.5 [facility] PLATELETS, MANUAL ENTER 216 [facility] WBC, MANUAL ENTER 4.7 [facility], [facility] 03/07/2025 7:35 AM EDT us Other Other LAB SEND OUTS Final Result Performing Organization Address [facility] de Phone Number [facility], [facility] [address] [place] [phone] * DBILI & TBILI,AST,ALT,GGT,ALK PHOS,ALB,MANUAL ENTER (03/07/2025 7:35 AM EDT) Only the most recent of2 resultswithin the time period is included. ALT, MANUAL ENTER 26 [facility] ALBUMIN, MANUAL ENTER 4.0 [facility] Bilirubin Direct, Manual Enter 0.2 [facility] ALKALINE PHOSPHATASE, MANUAL ENTER 101 [facility] GGT, MANUAL ENTER 26 [facility] AST, MANUAL ENTER 19 [facility], [facility] Bilirubin, Total, MANUAL ENTER 0.8 [facility], [facility] 03/07/2025 7:35 AM EDT us Other Other LAB SEND OUTS Final Result Performing Organization Address [facility] Phone Number [facility] [address] [place] [phone] * CA, MG, PO4, MANUAL ENTER (03/07/2025 7:35 AM EDT) Only the most recent of2 resultswithin the time period is included. CALCIUM (CA), MANUAL ENTER 9.1 [facility] Phosphate (PO4), Manual Enter 2.8 [facility], [facility] MAGNESIUM (MG), MANUAL ENTER 1.8 [facility] 03/07/2025 7:35 AM EDT Other Other LAB SEND OUTS Edited Result - Final Performing Organization Address [facility] de Phone Number [facility], [facility] [address] [place] [address] * CHEM 7 PANEL, MANUAL ENTER (03/07/2025 7:35 AM EDT) Only the most recent of2 resultswithin the time period is included. Carbon Diox(CO2), MANUAL ENTER 24.6 [facility] SODIUM (NA), MANUAL ENTER 141 mmol/L [facility] Blood Urea Nitrogen (BUN), MANUAL ENTER [facility] GLUCOSE, MANUAL ENTER 114 [facility] CREATININE, SERUM, MANUAL ENTER 1.33 [facility] Chloride (CL), MANUAL ENTER 107 [facility] POTASSIUM (K+), MANUAL ENTER 3.9 [facility], [facility] 03/07/2025 7:35 AM EDT us Other Other LAB SEND OUTS Final Result Performing Organization Address City/[facility]/ZIP Co de Phone Number LAB, [facility] [address] [address] * HIV 1 AND 2 ANTIBODIES/P24 ANTIGEN (09/02/2023 5:33 AM EDT) HIV-1/HIV-2 Ab With p24 Antigen Non Reactive Non Reactive 09/02/2023 9:35 AM EDT [facility] Blood Venipuncture / Unknown 09/02/2023 5:33 AM EDT 09/02/2023 6:02 AM EDT us Reese Sage MD IMMUNOLOGY ORDERABLES Final Re sult Performing Organization Address City/[facility]/ZIP Co de Phone Number [facility] [address] [address] * CT CHEST WITHOUT CONTRAST (08/31/2023 11:25 AM EDT) Anatomical Region Laterality Modality Chest Computed Tomogra phy 08/31/2023 11:4 5 AM EDT Impressions 08/31/2023 12:09 PM EDT IMPRESSION: 1. Superior segment of the left lower lobe consolidative pneumonia with trace fluid or mild thickening of the adjacent minor fissure. 2. Innumerable punctate centrilobular nodules throughout both lungs are likely infectious as well in an immunocompromised patient. 3. Few mildly enlarged lymph nodes in the AP window are likely reactive. 4. Coronary artery disease. Narrative 08/31/2023 12:09 PM EDT EXAM: CT CHEST WITHOUT CONTRAST, 08/31/2023 11:25 [...] in superior T12 endplate. Mild bilateral gynecomastia. Procedure Note Daisha Patterson MD - 08/31/2023 EXAM: CT CHEST WITHOUT CONTRAST, 08/31/2023 11:25 AM COMPARISON: No Available Comparisons. CLINICAL INDICATIONS: FUO, cough, desaturations in immunosupressedpatient; RELEVANT CLINICAL HISTORY: TECHNIQUE: CT images of the chest were obtained without intravenouscontrast. FINDINGS: Lungs and Pleura: Dependent atelectasis. Consolidative opacity in thesuperior segment of the left lower lobe with adjacent mild thickening/trace fluidof the major fissure. Innumerable punctate centrilobular nodules diffusely throughout the lungs. Tracheobronchial tree: No abnormality. Mediastinum/Susan: A few mildly enlarged AP window lymph nodes, series 3image 26, likely reactive. Axilla and Supraclavicular Regions: No axillary or supraclavicularadenopathy. Cardiovascular: Heart is normal in size. Trace pericardial effusion.Dense calcifications in the coronary arteries with atherosclerosis scattered inthe aorta and branch vessels. Central pulmonary arteries are normal incaliber. Upper Abdomen: A CT Abdomen and Pelvis was concurrently performed and separately dictated. Bones and Soft Tissue: Schmorl's node in superior T12 endplate. Mildbilateral gynecomastia. IMPRESSION IMPRESSION: 1. Superior segment of the left lower lobe consolidative pneumonia withtrace fluid or mild thickening of the adjacent minor fissure. 2. Innumerable punctate centrilobular nodules throughout both lungs are likely infectious as well in an immunocompromised patient. 3. Few mildly enlarged lymph nodes in the AP window are likelyreactive. 4. Coronary artery disease. Reese Sage MD CT ORDERABLES Final Result * HEPATITIS BATTERY, ACUTE (04/12/2020 3:37 PM EDT) Hepatitis B Surface Ag Negative Negative 04/12/2020 5:50 PM EDT [facility] Hep B Core Ab,Total (IgG+IgM) Negative Negative 04/12/2020 5:50 PM EDT [facility] Hep B Core IgM Ab Negative Negative 04/12/2020 5:50 PM EDT [facility] Hepatitis A IgM Ab Negative Negative 04/12/2020 5:50 PM EDT [facility] Hepatitis C Antibody Negative Negative 04/12/2020 5:50 PM EDT [facility] Blood Venipuncture / Unknown 04/12/2020 3:37 PM EDT 04/12/2020 3:48 PM EDT Renee LEIGH IMMUNOLOGY ORDERABLES F inal Result [facility] [address] [place] [address] * OUTSIDE COLONOSCOPY (09/20/2019 12:00 AM EDT) Anatomical Region Laterality Modality Other 09/20/2019 us Other Other GI/BRONCH PROCEDURE ORDERABLES F inal Result * (ABNORMAL) LIPID PANEL W CALCULATED LDL (03/22/2019 10:30 AM EDT) CHOLESTEROL 84 <200 mg/dL [facility], [facility] Comment: [<200 mg/dL: Desirable] [200-239 mg/dL: Borderline High] [>239 mg/dL: High] HDL CHOLESTEROL 34(L) >40.0 mg/dL LAB, [facility] Comment: [<40 mg/dL: Low (High Risk)] [>59 mg/dL: High (Low Risk)] TRIGLYCERIDES-TR IGE 129 <150 mg/dL [facility], [facility] Comment: [<150 mg/dL: Desirable] [150-199 mg/dL: Borderline] [200-499 mg/dL: High] [>500 mg/dL: Very High] LDL CHOLESTEROL, CALCULATED 24 0 - 99 mg/dL [facility], [facility] Comment: [<100 mg/dL: Optimal] [100-129 mg/dL: Near Optimal] [130-159 mg/dL: Borderline High] [160-189 mg/dL: High] [>189 mg/dL: Very High] CHOLESTEROL, TOTAL/HDL 2.5 <4.5 [facility], [facility] Comment:[<4.5: Low risk] NON-HDL CHOLESTEROL (CHOL-HDL) 50 <130 mg/dL [facility], [facility] 03/22/2019 10:3 0 AM EDT 03/22/2019 1:04 PM EDT us Nael Torres MD CHEMISTRY ORDERABLES Final Resul t [place] [id number] * PSA, SCREENING (10/12/2018 12:57 PM EST) PSA 0.36 <4.00 ng/mL [facility] 10/12/2018 12:5 7 PM EST 10/12/2018 4:12 PM EST us Yovani Orr MD IMMUNOLOGY ORDERABLES Final Resu lt [facility], [facility] [address] [place] [address] from Last 3 Months or Most Recently Relevant to Health Maintenance Insurance MEDICAID MEDICARE [employer] HMO Advance Directives For more information, please contact: [phone] (7:30 AM - 6PM [facility], Thursday-Thursday) * Full Code (Latest Code Status on File) Date Activated Date Inactivated Comments 01/20/2024 11:06 AM * Full Code Date Activated Date Inactivated Comments 01/16/2024 1:48 AM 01/20/2024 11:06 AM * Full Code Date Activated Date Inactivated Comments 08/28/2023 8:47 PM 01/16/2024 1:48 AM * Full Code Date Activated Date Inactivated Comments 05/15/2022 10:11 PM 08/28/2023 8:47 PM * Full Code Date Activated Date Inactivated Comments 05/10/2020 4:17 AM 05/15/2022 10:11 PM Care Teams Narrow Fabric Loom Fixer Relationship Specialty Start Date End Date Mihaela Bruno SENIOR ARCHITECT/DESIGN MANAGER [facility] - General 07/19/18
--- OUTSIDE RECORDS SUMMARY | 2025-05-02 06:35 | XMS_ITS | Encounter Summary ---
Author Organization [facility] enter Address [address] [place] [address] Care Team Providers Care Endo Tech Name Role Phone Mihaela Bruno CNP Primary Care Provider [phone] Comfort Rivera [facility] Unavailable [phone] Angel Carpio Unavailable Unavailable [facility],PharmD Unavailable Unavai Evan Valdivia DO Unavailable [phone] Evan White DO Unavailable [phone] Encounter Details Date Type Department Care Team (Late st Contact Info) Description 02/17/2020 Documentation Only CLINICAL LAB TISSUE TYPING [facility] [address] [place] [id number] Orders, Other Social History Tobacco Use Types [...] Healthcare [address] [place] [address] 08/11/2025 10:30 AM EDT Office Visit [facility] [address] [place] [address] Rebeca Gutierrez APRN-ROB [address] [place] [address] documented as of this encounter Visit Diagnoses [...] documented as of this encounter Care Teams Endo Tech Relationship Specialty Start Date End Date Mihaela Bruno CNP PCP - General 07/19/18 Comfort Rivera [facility] [address] [place] [address] [id number] [place] [address] Pharmacist Pharmacist 05/16/20 05/14/22 Angel Carpio Pharmacist Pharmacist 05/16/20 05/14/22 [facility],PharmD Pharmacist Pharmacist 01/09/21 Evan White DO [address] [place] [address] Infectious Disease Infectious Disease 09/09/23 03/14/24 Evan White DO [address] [place] [address] Infectious Disease Infectious Disease 09/08/24 4 documented as of this encounter
--- OUTSIDE RECORDS SUMMARY | 2025-05-02 06:37 | XMS_ITS | CCD ---
Author Organization [facility] Care Team Providers Care Shank Skinner Name Role Phone Kiana Zuly Unavailable Unavailable [...] Unavailable AICHHOLZ, ZULY Primary Care Unavailable Aichholz [facility], Zuly Primary Care Provider [phone] Miguel [facility] [phone] Shirin [facility],PharmD, Angel Unavailable Unavailab makayla Leigh [facility],PharmD, Te Unavailable Unavai lable Aicholz [facility], Zuly Primary Care Provider CRISTINA, DR BURCH Admitting Unavailable MISC, DR BURCH Consulting Unavailable AICHHOLZ, [employer] ZULY Primary Care Unavailable MISC, DR BURCH Attending Unavailable MISC, DR BURCH Admitting Unavailable MISC, DR BURCH Consulting Unavailable AICHHOLZ, [employer] TECHNICIAN ZULY Primary Care Unavailable MISC, DR BURCH Attending Unavailable ARCELIA PIZARRO Consulting Unavailable KE BURNHAM Attending Unavailable KE BURNHAM Admitting Unavailable BARBARA, DR MÓNICA Munoz Consulting Unavailable AICHHOLZ, [employer] TECHNICIAN ZULY Primary Care Unavailable KE BURNHAM Consulting Unavailable MISC, DR BURCH Consulting Unavailable MISC, DR BURCH Attending Unavailable AICHHOLZ, [employer] TECHNICIAN ZULY Primary Care Unavailable MISC, DR BURCH Admitting Unavailable MISC, DR DOCTOR Consulting Unavailable MISC, DOCTOR Attending Unavailable AICHHOLZ, [employer]CHNICIAN ZULY Primary Care Unavailable MISC, DR BURCH Admitting Unavailable MISC, DR DOCTOR Consulting Unavailable AICHHOLZ, [employer] TECHNICIAN ZULY Primary Care Unavailable MISC, DOCTOR Admitting Unavailable MISC, DR DOCTOR Attending Unavailable MELINDA, DR GEORGE Munoz Consulting Unavailable MELINDA, DR GEORGE Munoz Attending Unavailable AICHHOLZ, [employer] TECHNICIAN ZULY Primary Care Unavailable MELINDA, DR GEORGE Munoz Admitting Unavailable NAUN ., KE Consulting Unavailable MIRANDA, LYNDSAY Consulting Unavailable MELINDA, DR GEORGE Munoz Consulting Unavailable NAUN ., KE Attending Unavailable NAUN ., KE Admitting Unavailable AICHHOLZ, [employer] TECHNICIAN ZULY Primary Care Unavailable NAUN ., KE Consulting Unavailable GIAN HRERING Consulting Unavailable AICHHOLZ, [employer] TECHNICIAN ZULY Consulting Unavailable AICHHOLZ, [employer] TECHNICIAN ZULY Attending Unavailable AICHHOLZ, [employer] TECHNICIAN ZLUY Admitting Unavailable AICHHOLZ, [employer] TECHNICIAN ZULY Primary Care Unavailable MISC, DR BURCH Consulting Unavailable MISC, DOCTOR Admitting Unavailable MISC, DOCTOR Attending Unavailable AICHHOLZ, [employer] TECHNICIAN ZULY Primary Care Unavailable MISC, DR DOCTOR Consulting Unavailable MISC, DR DOCTOR Attending Unavailable MISC, DR DOCTOR Admitting Unavailable AICHHOLZ, [employer] TECHNICIAN ZULY Primary Care Unavailable MISC, DR BURCH Admitting Unavailable MISC, DOCTOR Consulting Unavailable MISC, DOCTOR Attending Unavailable AICHHOLZ, [employer] TECHNICIAN ZULY Primary Care Unavailable MISC, DOCTOR Admitting Unavailable MISC, DR DOCTOR Consulting Unavailable AICHHOLZ, [employer] TECHNICIAN ZULY Primary Care Unavailable MISC, DR DOCTOR Attending Unavailable MISC, DOCTOR Admitting Unavailable MISC, DR DOCTOR Consulting Unavailable AICHHOLZ, [employer] TECHNICIAN ZULY Primary Care Unavailable MISC, DR DOCTOR Attending Unavailable AICHHOLZ, [employer] TECHNICIAN ZULY Consulting Unavailable AICHHOLZ, [employer] TECHNICIAN ZULY Attending Unavailable AICHHOLZ, [employer] TECHNICIAN ZULY Admitting Unavailable AICHHOLZ, [employer] TECHNICIAN ZULY Primary Care Unavailable DR MÓNICA JIMENEZ Consulting Unavailable Aichholz [employer], Zuly Primary Care Provider Tran White DOs A Unavailable Aichholz [employer], Zuly Primary Care Provider Tran White DOs A Unavailable [phone] Momo Verdugo MD Primary Care Provider Aicevi [employer], Zuly Primary Care Provider ZULY BRUNO Primary Care Physician [phone] Kartik LUZ, Momo Primary Care Provider Aicevi TURNER OFF, Zuly Unavailable Kasandra Thomas DO Unavailable Zuly Bruno Primary Care Provider Briseida LUZ, Imlenny Attending Provider Annie Brunoa J Primary Care Unavailable Asaad, Imad Attending Unavailable Asaad, Imad Admitting Unavailable Momo Verdugo MD Unavailable KIANA, ZULY Attending Unavailable TONY HERNANDEZ Attending Unavailable AICHHOLZ, ZULY Referring Unavailable JOHNNA HOLLIDAY Attending Unavailable AICHHOLZ, ZULY Referring Unavailable JOHNNA HOLLIDAY Attending Unavailable AICHHOLZ, ZULY Referring Unavailable AICHHOLZ, ZULY Attending Unavailable TONY HERNANDEZ Attending Unavailable AICHHOLZ, ZULY Attending Unavailable AICHHOLZ, ZULY Attending Unavailable Orzech, Steph X Attending Unavailable Orjosue, Steph Wilson Attending Unavailable GaleaClementina Attending Unavailable AICHHOLZ, UZLY J Referring Unavailable GaleaClementina Attending Unavailable Galea, Clementina Mejias Attending Unavailable Orjosue, Steph X Attending Unavailable MIGUEL CARDONA Attending Unavailable MIGUEL CARDONA Attending Unavailable REBECA GUTIERREZ Attending Unavailable SELF, SELF Referring Unavailable AICHHOLZ, ZULY Primary Care Unavailable AICHHOLZ, ZULY Primary Care Unavailable DAISHA MAX Attending Unavailable SELF, SELF Referring Unavailable AICHHOLZ, ZULY Primary Care Unavailable EVAN WHITE Attending Unavailabl e SELF, SELF Referring Unavailable Allergies Allergy Classification Reported Allergen(s) Allergy Type Date of Onset Reaction(s) Facility (3 sources) Shellfish; Translations: [SHELLFISH DERIVED] Propensity to adverse reactions (disorder) 8 [facility] (20 sources) Shellfish-Deriv ed Products Propensity to adverse reactions to drug 9 Swelling [facility] (5 sources) Shellfish; Translations: [shellfish] Drug allergy (disorder) Anaphylaxis (disorder) [facility] [place] [facility] Medications Current Medications Medication Drug Class(es) Dates Sig (Normalized) Sig (Original) alendronic acid 70 mg oral tablet (2 sources) Bisphosphonate Start: 03-21-2025 End: 09-05-2025 alendronate (Fosamax) 70 MG tablet Indications: Other osteoporosis without current pathological fracture Take 1 tablet (70 mg) by mouth every 7 (seven) days 1 tablet weekly on an empty stomach, remain upright for at least 30 minutes 12 tablet 1 03/21/2025 09/05/2025 Active allopurinol 100 mg oral tablet (20 sources) [...] Active Start: 02-08-2024 take 1 tablet by [facility] once daily amLODIPine (Norvasc) 5 MG tablet [...] 1 capsule by mouth once daily b [id number]-I-mxryf acid (NEPHROCAPS) 1 MG capsule Take 1 [...] week(s), # 56 cap(s), Refills(s) 0, Pharmacy: [facility], 170, cm, 01/03/25 11:03:00 EST, Height/Length Dosing, 90, kg, 01/03/25 11:03:00 EST, Weight Dosing Start Date: 01/03/25 Stop Date: 01/31/25 Status: Ordered Drug or medicament (substance) (1 source) Start: 10-12-2 023 ergocalciferol 1.25 mg oral capsule (2 sources) Provitamin D2 Compound Start: End: take 1 capsule by mouth every week ergocalciferol (Vitamin D-2) 1.25 MG (49313 UT) capsule Indications: Vitamin D deficiency Take 1 capsule (1.25 mg) by mouth 1 (one) time per week 12 capsule 1 03/21/2025 09/05/2025 Active famotidine 20 mg oral tablet (20 sources) [...] DAILY (Solid Organ Transplant), First dose on [facility] 01/16/24 at 0800, Until Discontinued, Give [...] split, crush, or chew. Start: 03-15-2021 End: 10-12-2023 ondansetron 4 mg disintegrating oral tablet (20 [...] nausea or vomiting Active polyethylene glycol 3350 32290 mg powder for oral solution (20 sources) [...] Inhibitor Antibacterial, Sulfonamide Antimicrobial Start: 09-23-20 End: 09-29-20 25 take 1 tablet by mouth three times [...] Start: 10-03-2024 take 1 capsule by mo [facility] once daily in the morning Tacrolimus [...] Start: 08-20-2022 take 1 capsule by mo [facility] every twelve hours Tacrolimus [...] Start: 03-14-2022 take 1 capsule by mo [facility] every twelve hours tacrolimus [...] day(s), # 180 cap(s), Refills(s) 3, Pharmacy: [id number], 170, cm, 09/08/24 14:00:00 EDT, Height/Length [...] itraconazole Fax results to: Dr. White - [phone] Transplant Neph - [phone] Each 09/10/2023 01/19/2024 Discontinued (Medication Reconciliation (suppress cancel msg)) Start: 09-10-2023 CUSTOM MEDICAT ION Labs to be obtained: 1- Tacrolimus level, trough - collect twice weekly until 09/24/23, then weekly until 10/08/23, them once every two weeks there after. 2- Itraconazole level - obtain once between 09/14-09/18. 3- Chem 6 - Obtain weekly while on itraconazole Fax results to: Dr. White - [phone] Transplant [facility] - [phone] Each 0 09/10/2023 Active Diatrizoate (1 source) Start: 05-20-2022 End: 05-20-2022 diatrizoate Meglumine (Cystografin) 30 % UR solution 80 mL diphenhydrAMINE hydrochloride 25 mg oral tablet (1 source) Histamine-1 Receptor Antagonist Start: 09-03-2023 End: 09-11-2023 take 25 mg by mouth every twenty-four hours 25 mg, Oral, EVERY 24 HOURS, First dose on [facility] 09/03/23 at 1600, Until Discontinued Give 30 minutes prior to each amphotericin b dose docusate sodium 100 mg oral capsule (4 sources) Start: 05-15-2022 End: 05-16-2022 take 200 mg by mouth every twelve hours 200 mg, Oral, EVERY 12 HOURS, First dose on [facility] 05/15/22 at 2215, Until Discontinued Start: [...] 27, 2018 10:05am take 2 tablets by [facility] three times daily as needed midodrine (PROAMATINE) 5 MG tablet Take 10 mg by mouth 3 times daily Prn with dialysis 0 Active take 2 tablets by mo [facility] once daily as needed [...] AN PO) Take by mouth. 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 [...] 2024 9:21am tadalafil 10 mg oral tablet (11 sources) Phosphodiesterase 5 Inhibitor Start: 11-22-2024 take 1 tablet by mouth every hour, then take 2 tablets by mouth every twenty-four hours Cialis 10 mg Tab 10 mg = 1 tab(s), Oral, As Directed, take 1 tab at least 1 hr prior to intercourse, do not exceed 20 mg (2 tab) in 24 hrs, # 30 tab(s), Refills(s) 5, Pharmacy: [id number], 170, cm, 11/22/24 9:39:00 EST, Height/Length Dosing, 90, kg, 11/22/24 9:39:00 EST, Weight Dosing Start Date: 11/22/24 Status: Ordered take 1 tablet by magy th every twenty-four hours as needed tadalafil (Cialis) [...] Overview: Added automatically from request for surgery [id number] Coagulation and hemorrhagic disorders (4 sources) Hypercoagulability state; Translations: [Other primary thrombophilia] 08-21-2018 Chronic Congestive heart failure; nonhypertensive (20 sources) Acute diastolic heart failure; Translations: [Acute diastolic (congestive) heart failure] Onset: 4 01-20-2024 Chronic Coronary atherosclerosis and other heart disease (20 sources) Coronary arteriosclerosis; Translations: [Atherosclerotic heart disease of ione coronary artery without angina pectoris] Onset: 3 04-22-2020 Chronic Deficiency and other anemia (2 sources) Anemia due to blood loss; Translations: [Iron deficiency anemia secondary to blood loss (chronic)] 11-03-2018 Chronic Disorders of lipid metabolism (20 sources) Hyperlipidemia, unspecified; Translations: [Hyperlipidemia] Onset: 3 Chronic Esophageal disorders (20 sources) [...] [HEADACHE UNSPECIFIED] Onset: 2 Hyperplasia of prostate (19 sources) Benign prostatic hypertrophy with outflow obstruction; [...] prostate, unspecified] Onset: 5 Episodic Nutritional deficiencies (4 sources) Moderate protein energy malnutrition; Translations: [Moderate [...] Taking high risk medication; Translations: [Other terminal carman (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] Episodic Other aftercare (1 [...] and reflux uropathy] Onset: 4 Episodic Other endocrine disorders (2 sources) Hyperparathyroidism due to vitamin D deficiency; Translations: [Secondary hyperparathyroidism, not elsewhere classified] 03-21-2025 Chronic Other gastrointestinal disorders (2 sources) Irritable [...] Overview: Added automatically from request for surgery [id number] Other liver diseases (3 sources) Liver transplant [...] [Hypoxemia] 09-10-2023 Episodic Other male genital disorders (12 sources) Male erectile dysfunction, unspecified; Translations: [Erectile dysfunction] Onset: 4 Chronic Other nervous system disorders (20 sources) Peripheral nerve disease ; Translations: [Polyneuropathy, unspecified] Onset: 4 12-03-2023 Chronic Other nervous system disorders (1 source) Polyneuropathy; Translations: [Other specified polyneuropathies] 02-06-2025 Chronic Other nutritional; endocrine; and metabolic disorders [...] Chronic Other nutritional; endocrine; and metabolic disorders (10 sources) Hyperuricemia; Translations: [Hyperuricemia without signs of [...] receiving therapeutic benefit Onset: 3 03-26-2023 Unclassified (3 sources) Patient encounter status 11-22-2024 Unclassified (1 source) Other pericardial effusion (noninflammatory); Translations: [Other pericardial effusion (noninflammatory)] Onset: 5 Past or Other Problems Problem Classification Problem [...] Overview: Added automatically from request for surgery [id number] Allergic reactions (20 sources) Eczema; Translations: [Dermatitis, [...] 05-10-2020 Episodic Other aftercare (1 source) Other terminal carman (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; Translations: [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] Onset: 2 Episodic Other aftercare (1 source) detention (current) use of aspirin; Translations: [CUSTODIAL CURRENT USE OF ASPIRIN] Onset: 2 Episodic [...] (noninflammatory); Translations: [Other pericardial effusion (noninflammatory)] Onset: 5 Results Test Name Value Interpretation Reference Range Facility Ambulatory Visit Summaryon 0 03-23-2025 Ambulatory Visit Summary Ambulatory Visit Summary GEORGE STYLES :1970 Visit Date:03/23/2025 Ambulatory Visit Instructions Your Diagnosis BPH with urinary obstruction Erectile dysfunction Weak urine stream Your Care Team Attending Physician - Clementina James Primary Care Physician - ZULY BRUNO CNP This Is Your Medications List allopurinol (allopurinol 100 mg Tab) amlodipine (amLODIPine 10 mg Tab) aspirin (aspirin 81 mg Oral [...] (2019), Transplantation of liver (2019). Discharge Vitals Temperature (Oral) 36.8 ???C Heart Rate (Peripheral) 80 Respiratory Rate 16 Blood Pressure 140/90 Height 170 cm Height 67 in Weight 94.8 kg Weight 208.998 lb BMI 32.8 Medications What How Much When Instructions Unchanged allopurinol (allopurinol 100 mg Tab) 1 Tablets TAKE 2 TABLETS BY MOUTH DAILY Unchanged amlodipine (amLODIPine 10 mg Tab) 1 Tablets By Mouth Every day Unchanged aspirin (aspirin 81 mg Oral EC [...] for choosing us for your care. Normal [facility] Urology Office/Clinic Noteon 03-23-2025 Urology Office/Clinic Note Urology Office/Clinic Note Chief Complaint 4 mth f/u HPI Staff 2 month f/u with PVR Dx: prostatitis, BPH with urinary obstruction, ED, screening PSA and hx of kidney transplant Pt treated at last OV for prostatitis Doxy x4 weeks Tamsulosin BID pt states he is doing better after the doxycycline. pt still having weak stream but getting better. pt is having some intermittency mainly in the am after he sleeps all night. denies any visible blood in urine. at times lower back pain and at time abdominal pain. History of Present Illness Staff HPI reviewed and agree. Review of Systems PHQ Score Initial Depression Screen Score: 0 SCORE no fever, chills, malaise, myalgia. no rash/lesions. no chest pain, palpitations, or SOB. no abdominal pain, nausea, vomiting. no unilateral calf swelling, redness, pain Physical Exam Vitals & Measurements T: 36.8 ???C(Oral) HR: 80(Peripheral) RR: 16 BP: 140/90 HT: 67 in HT: 170 cm WT: 208.998 lb WT: 94.8 kg BMI: 32.8 General: nontoxic, well-nourished, appears stated age Mouth: moist mucosa Lungs: normal respiratory effort Cardio: regular rate, good distal perfusion Abdomen: nondistended, no suprapubic distention or tenderness, no CVA tenderness Neurologic: Grossly normal Skin: No rashes or suspicious lesions Assessment/Plan 1. History of prostatitis (Z87.438: Personal history of other diseases of male genital organs) UA today negative for blood or infection PVR 121ml (90ml) Pt here today for follow up to prostatitis. Pt reports he completed the full 4-week course of Doxycycline 100mg BID about a month ago and his symptoms of spraying urine stream, perineal pressure and dysuria have subsided. Pt continues to report weak stream about once a day but feels this is back to his baseline after abx treatment. Advised pt that his PVR remains slightly elevated which can contribute to recurrent infections. Discussed double voiding with patient, he verbalizes understanding. -Increase fluids, avoid bladder irritants -Timed and double voids -Call our office for any return of prostatitis symptoms Ordered: E&M of Est. Patient Moderate 30-39 Min 55724 2. BPH with urinary obstruction (N40.1: Benign prostatic hyperplasia with lower urinary tract symptoms) UA today negative for blood or infection PVR today 121ml (90ml) IPSS 16(16), QoL 2 Pt has been taking Flomax 0.4mg BID since October. Pt reports that he continues to have intermittent weak stream. Had a long discussion regarding next steps to assess male anatomy which includes cystoscopy and TRUS for sizing. Also discussed MIPPs including Rezum and UroLift, also touched on TURP procedure but patient knows that cysto/TRUS would be the first step. Pt reports that he is satisfied with his urination at this time. Discussed long-term use SEs of Flomax and it's effect on the bladder. Pt would like to discuss next steps further at follow up in August. -Continue Flomax 0.4mg PO BID -Increase fluids, avoid bladder irritants -Timed and double voids -F/U in August to discuss next steps including cysto/TRUS for sizing Ordered: [id number] Measure Post Void residual urine and/or bladder capacity by US- non-imaging E&M of Est. Patient Moderate 30-39 Min 48778 Urnls Dip Stick Auto w/o Microscopy POC 68033 3. Weak urine stream (R39.12: Poor urinary stream) -See #2 Ordered: [id number] Measure Post Void residual urine and/or bladder capacity by US- non-imaging E&M of Est. Patient Moderate 30-39 Min 25386 Urnls Dip Stick Auto w/o Microscopy POC 34466 4. Erectile dysfunction (N52.9: Male erectile dysfunction, unspecified) LINDEN 19(3) Started taking Cialis 10mg PRN at prior OV. Pt is very satisfied with current dosing. No need for change at this time. -Continue Cialis 10mg PRN Ordered: 77489 Measure Post Void residual urine and/or bladder capacity by US- non-imaging E&M of Est. Patient Moderate 30-39 Min 83826 Urnls Dip Stick Auto w/o Microscopy POC 59900 5. Screening PSA (prostate specific antigen) (Z12.5: Encounter for screening for malignant neoplasm of prostate) PSAs: 09/15/22 - 0.79 08/29/24 - 0.85 Pt aware that he is due for PSA in July for annual check. Pt would like to obtain this at [facility]. -PSA at [facility] in early August for screening (recall placed) -F/U to review results and discuss #2 Ordered: E&M of Est. Patient Moderate 30-39 Min 14548 6. History of kidney transplant (Z94.0: Kidney transplant status) 08/29/24 - BUN 18, Cre 1.3, GFR 58 Pt had liver and kidney transplant in 2019 and follows yearly with [facility]. Due for labs in April. Pt reports being on Bactrim 3x weeks for kidney transplant. Ordered: E&M of Est. Patient Moderate 30-39 Min 57160 Follow-up With When Contact Information Clementina James, URL Within 6 months Additional Instructions: w/ PSA Patient Education Benign Prostatic Hyperplasia Problem List/Past Medical History Ongoing Acute kidney injury Alcoho (more content not included)... Normal [facility] Comment on above: Result Comment: Elec tronically Signed By: Clementina James\.br\Date and Time Signed: 03/23/25 08:54 EDT Office Visiton 03-22-2025 Follow-up visit [id number] George Styles 1970 M Date Provider Department Center 03/22/2025 [id number]-MIGUEL CARDONA Family History Problem Relation Age of Onset Coronary artery disease Mother Coronary artery disease Father Coronary artery disease Sister Coronary artery disease Brother Family Status - Relation Status Age at Mother Father Sister Alive Brother Alive Level of Service:85527 SC OFFICE/OUTPATIENT ESTABLISHED MOD MDM 30 MIN Normal [facility] CALCIUM 24 HOUR URINEon 04-0 CALCIUM 24 HOUR URINE 348.3 High [facility] CALCIUM URINE RANDOM 12.9 mg/dL 5.1 - 2 1.0 mg/dL [facility] Interpretation and review of laboratory results Abnormal [facility] CREATININE 24 HOUR URINEon 0 03-08-2025 CREATININE 24 HOUR URINE 1600.56 [facility] CREATININE URINE RANDOM 59.28 mg/dL 20.00 - 300.00 mg/dL [facility] TOTAL VOLUME 24 HOUR URINE 2700 mL/24hr [facility] No Panel Informationon 03-08 [facility] SODIUM 24 HOUR URINEon 03-08 Sodium (U) [Moles/Vol] 74 mmol/L 30 - 90 mmol/L [facility] SODIUM 24 HOUR URINE 200 [facility] ALL CBC WITH AUTO DIFFon BASOPHILS ABSOLUTE AUTO 0 [facility] Basophils/100 WBC (Bld) 0.9 % 0.2 - 2.0 % [facility] Eosinophils/100 WBC (Bld) 2.8 % 0.9 - 7.0 % [facility] Erythrocyte distribution width (RBC) [Ratio] 12.5 % 11.0 - 15.0 % [facility] Hematocrit (Bld) [Volume fraction] 47.5 % 42.0 - 54.0 % [facility] Hemoglobin (Bld) [Mass/Vol] 16.1 g/dL 14.0 - 18.0 g/dL [facility] IMMATURE GRANULOCYTES ABS AUTO 0.01 [facility] Immature granulocytes/100 WBC (Bld) 0.2 % 0.0 - 0.5 % [facility] LYMPHOCYTES ABSOLUTE AUTO 1.6 [facility] Lymphocytes/100 WBC (Bld) 34.5 % 20.5 - 60.0 % [facility] MCH (RBC) [Entitic mass] 29.7 pg 25.9 - 34.0 pg [facility] MCHC (RBC) [Mass/Vol] 33.9 g/dL 29.9 - 35.2 g/dL [facility] MCV (RBC) [Entitic vol] 87.6 fL 80.0 - 94.0 fL [facility] MONOCYTES ABSOLUTE AUTO 0.4 [facility] Monocytes/100 WBC (Bld) 9.1 % 1.7 - 12.0 % [facility] NEUTROPHILS ABSOLUTE AUTO 2.5 [facility] Neutrophils/100 WBC (Bld) 52.5 % 43.0 - 75.0 % [facility] Platelet mean volume (Bld) [Entitic vol] 9.8 fL 9.5 - 13.5 fL [facility] TBH EO # 0.1 [facility] TB PLT 216 [facility] RBC 5.42 [facility] WBC 4.7 [facility] Reminderson 02-21-2025 Reminders Reminders From: Paulina Morales To: EU - Administrative; Sent: 11/22/2024 09:52:41 EST Show up: 01/28/2025 09:52:00 EST Subject: Ambulatory Reminder Due Date/Time: 03/09/2025 09:52:00 EDT Reminder/Recall Patient needs scheduled with AG for a 4 month F/U, he schedule is not built yet. Due back in February 2025 LVM Pt is scheduled for March 23, 2025 @8:00am w/ [facility] in [place]. [facility] ALL CBC WITH AUTO DIFFon BASOPHILS ABSOLUTE AUTO 0 [facility] Basophils/100 WBC (Bld) 0.7 % 0.2 - 2.0 % [facility] Eosinophils/100 WBC (Bld) 2.9 % 0.9 - 7.0 % [facility] Erythrocyte distribution width (RBC) [Ratio] 12.6 % 11.0 - 15.0 % [facility] Hematocrit (Bld) [Volume fraction] 46.7 % 42.0 - 54.0 % [facility] Hemoglobin (Bld) [Mass/Vol] 15.5 g/dL 14.0 - 18.0 g/dL [facility] IMMATURE GRANULOCYTES ABS AUTO 0.01 [facility] Immature granulocytes/100 WBC (Bld) 0.2 % 0.0 - 0.5 % [facility] [facility] LYMPHOCYTES ABSOLUTE AUTO 1.6 [facility] Lymphocytes/100 WBC (Bld) 35 % 20.5 - 60.0 % [facility] MCH (RBC) [Entitic mass] 29.5 pg 25.9 - 34.0 pg [facility] MCHC (RBC) [Mass/Vol] 33.2 g/dL 29.9 - 35.2 g/dL [facility] MCV (RBC) [Entitic vol] 88.8 fL 80.0 - 94.0 fL [facility] MONOCYTES ABSOLUTE AUTO 0.4 [facility] Monocytes/100 WBC (Bld) 9.3 % 1.7 - 12.0 % [facility] NEUTROPHILS ABSOLUTE AUTO 2.3 [facility] Neutrophils/100 WBC (Bld) 51.9 % 43.0 - 75.0 % [facility] Platelet mean volume (Bld) [Entitic vol] 9.9 fL 9.5 - 13.5 fL [facility] TBH EO # 0.1 [facility] TBH PLT 219 [facility] RBC 5.26 [facility] WBC 4.5 [facility] Ambulatory Visit Summaryon 0 01-03-2025 Ambulatory Visit Summary Ambulatory Visit Summary GEORGE STYLES :1970 Visit Date:01/03/2025 Ambulatory Visit Instructions Your Diagnosis Prostatitis BPH with urinary obstruction Erectile dysfunction Screening PSA (prostate specific antigen) History of kidney transplant Your Care Team Attending Physician - JONATHAN Almodovar APRN, Steph Wilson Primary Care Physician - ZULY BRUNO CNP [...] APRN, [place] Where: [facility] [place] [address] [place] [address]- You Need to Schedule the Following Appointments Follow Up with JONATHAN Almodovar APRN, [place] X, FAM, URL When: Where: Medications What How Much When Instructions New doxycycline (doxycycline hyclate 100 mg Cap) 1 Capsules By Mouth 2 times a day Duration: 4 Weeks may substitute hyclate for monohydrate based on availability Pickup at [facility] Unchanged allopurinol (allopurinol 100 mg Tab) [...] physician if questions or concerns Pharmacy Information [facility]: [address] [place] [id number] [phone] Allergies shellfish (Anaphylaxis) Problems Ongoing - Any [...] asking a (more content not included)... Normal [facility] Urology Office/Clinic Noteon 01-03-2025 Urology Office/Clinic Note [...] Pt understands and agrees with plan. Ordered: 57068 Measure Post Void residual urine and/or bladder capacity by US- non-imaging Urnls Dip Stick Auto w/o Microscopy POC 65652 3. Erectile dysfunction (N52.9: Male erectile dysfunction, unspecified) LINDEN (3) Started taking Cialis 10mg PRN at prior OV. Ordered: Urnls Dip Stick Auto w/o Microscopy POC 93018 4. Screening PSA (prostate specific antigen) (Z12.5: Encounter for screening for malignant neoplasm of prostate) PSA 09/15/22 - 0.79 08/29/24 - 0.85 Reviewed PSA w patient today. Ordered: Urnls Dip Stick Auto w/o Microscopy POC 48389 5. History of kidney transplant (Z94.0: Kidney transplant status) 08/29/24 - BUN 18, Cre 1.3, GFR 58 Pt had liver and kidney transplant in 2019 and follows yearly with [facility]. [1] Pt reports being on Bactrim 3x weeks for kidney transplant. Ordered: Urnls Dip Stick Auto w/o Microscopy POC 40071 Orders: doxycycline, 100 mg = 1 cap(s), Oral, BID, may substitute hyclate for monohydrate based on availability, X 4 week(s), # 56 cap(s), Refills(s) 0, Pharmacy: [facility], 170, cm, 01/03/25 11:03:00 EST, Height/Length Dosing, 90, kg, 01/03/25 11:03:00 E... Follow-up With When Contact Information JONATHAN Almodovar APRN, Steph Wilson, FAM, URL Additional Instructions: Follow up FEBRUARY or sooner if needed Patient Education Benign Prostatic Hyperplasia Diana Mcdaniel, personally scribed for JONATHAN Martino APRN on 01/03/2025 11:26:59. . Documentation recorded by the aguilar De La Vega accurately reflects the services(s) I performed and decisions made by me. Authenticat (more content not included)... Normal [facility] Comment on above: Result Comment: Elec tronically Signed By: JONATHAN Almodovar APRN, Steph Wilson\.br\Date and Time Signed: 01/03/25 11:33 EST\.br\Electronically Co-Signed By: Diana De La Vega\Date and Time Co-Signed: 01/03/25 11:27 EST ALL CBC WITH AUTO DIFFon BASOPHILS ABSOLUTE AUTO 0 [facility] Basophils/100 WBC (Bld) 0.7 % 0.2 - 2.0 % [facility] Eosinophils/100 WBC (Bld) 3.1 % 0.9 - 7.0 % [facility] Erythrocyte distribution width (RBC) [Ratio] 12.5 % 11.0 - 15.0 % [facility]emat[facility] (Bld) [Volume fraction] 46.8 % 42.0 - 54.0 % [facility] Hemoglobin (Bld) [Mass/Vol] 15.4 g/dL 14.0 - 18.0 g/dL [facility] IMMATURE [facility]TES [facility] Immature granulocytes/100 WBC (Bld) 0 % 0.0 - 0.5 % [facility] LYMPHOCYTES ABSOLUTE AUTO 1.5 [facility] Lymphocytes/100 WBC (Bld) 34.5 % 20.5 - 60.0 % [facility] MCH (RBC) [Entitic mass] 28.9 pg 25.9 - 34.0 pg [facility] MCHC (RBC) [Mass/Vol] 32.9 g/dL 29.9 - 35.2 g/dL [facility] MCV (RBC) [Entitic vol] 87.8 fL 80.0 - 94.0 fL [facility] MONOCYTES ABSOLUTE AUTO 0.4 [facility] Healthcare Monocytes/100 WBC (Bld) 9.8 % 1.7 - 12.0 % [facility] NEUTROPHILS ABSOLUTE AUTO 2.2 [facility] Neutrophils/100 WBC (Bld) 51.9 % 43.0 - 75.0 % [facility] Platelet mean volume (Bld) [Entitic vol] 9.5 fL 9.5 - 13.5 fL [facility] TBH EO # 0.1 [facility] TBH PLT 203 [facility] RBC 5.33 [facility] WBC 4.2 [facility] Ambulatory Visit Summaryon 1 01-23-2024 Ambulatory Visit Summary Ambulatory Visit Summary JENSEN GEORGE Feliz :1970 Visit Date:08/24/2024 Ambulatory Visit Instructions Your [...] for choosing us for your care. Normal [facility] Urology Office/Clinic Noteon 11-22-2024 Urology Office/Clinic [...] with voice recognition artificial intelligence software, specifically [employer], [employer] and or [employer]. Substitutions may have occurred due to the [...] -Follow-up 4 months per patient preference Ordered: 13164 Measure Post Void residual urine and/or bladder capacity by US- non-imaging Urnls Dip Stick Auto w/o Microscopy POC 20091 2. Erectile dysfunction (N52.9: Male erectile dysfunction, [...] transplant in 2019 and follows yearly with [facility]. [1] Orders: tadalafil, 10 mg = 1 tab(s), Oral, As Directed, take 1 tab at least 1 hr prior to intercourse, do not exceed 20 mg (2 tab) in 24 hrs, # 30 tab(s), Refills(s) 5, Pharmacy: [email or web address], 170, cm, 11/22/24 9:39:00 EST, Height/Length Dosing, 90, kg, 12... tamsulosin, 0.4 mg = 1 cap(s), Oral, BID, X 30 day(s), # 60 cap(s), Refills(s) 11, Pharmacy: [email or web address], 170, cm, 09/08/24 14:00:00 EDT, Height/Length Dosing, 90, kg, 09/08/24 14:00:00 EDT, Weight Dosing tamsulosin, 0.4 mg = 1 cap(s), Oral, BID, X 90 day(s), # 180 cap(s), Refills(s) 3, Pharmacy: [email or web address], 170, cm, 09/08/24 14:00:00 EDT, [...] liver disease (more content not included)... Normal [facility] Comment on above: Result Comment: Elec tronically Signed By: JONATHAN Almodovar APRN, Steph Wilson\.br\Date and Time Signed: 11/22/24 09:58 EST ALL CBC WITH AUTO DIFFon BASOPHILS ABSOLUTE AUTO 0 [facility] Basophils/100 WBC (Bld) 0.7 % 0.2 - 2.0 % [facility] Eosinophils/100 WBC (Bld) 2.6 % 0.9 - 7.0 % [facility] Erythrocyte distribution width (RBC) [Ratio] 12.5 % 11.0 - 15.0 % [facility] Hematocrit (Bld) [Volume fraction] 47.5 % 42.0 - 54.0 % [facility] Hemoglobin (Bld) [Mass/Vol] 15.6 g/dL 14.0 - 18.0 g/dL [facility] IMMATURE GRANULOCYTES ABS AUTO 0 [facility] Immature granulocytes/100 WBC (Bld) 0 % 0.0 - 0.5 % [facility] LYMPHOCYTES ABSOLUTE AUTO 1.6 [facility] Lymphocytes/100 WBC (Bld) 36.3 % 20.5 - 60.0 % [facility] MCH (RBC) [Entitic mass] 28.6 pg 25.9 - 34.0 pg [facility] MCHC (RBC) [Mass/Vol] 32.8 g/dL 29.9 - 35.2 g/dL [facility] MCV (RBC) [Entitic vol] 87.2 fL 80.0 - 94.0 fL [facility] MONOCYTES ABSOLUTE AUTO 0.4 [facility] Monocytes/100 WBC (Bld) 9.8 % 1.7 - 12.0 % [facility] NEUTROPHILS ABSOLUTE AUTO 2.2 [facility] Neutrophils/100 WBC (Bld) 50.6 % 43.0 - 75.0 % [facility] Platelet mean volume (Bld) [Entitic vol] 9.5 fL 9.5 - 13.5 fL [facility] 0.1 [facility] PLT 230 [facility] RBC 5.45 [facility] WBC 4.3 [facility] ALL CBC WITH AUTO DIFFon BASOPHILS ABSOLUTE AUTO 0 [facility] Basophils/100 WBC (Bld) 0.5 % 0.2 - 2.0 % [facility] Eosinophils/100 WBC (Bld) 2.6 % 0.9 - 7.0 % [facility] Erythrocyte distribution width (RBC) [Ratio] 12.2 % 11.0 - 15.0 % [facility] Hematocrit (Bld) [Volume fraction] 47.7 % 42.0 - 54.0 % [facility] Hemoglobin (Bld) [Mass/Vol] 15.7 g/dL 14.0 - 18.0 g/dL [facility] IMMATURE GRANULOCYTES ABS AUTO 0.01 [facility] Immature granulocytes/100 WBC (Bld) 0.2 % 0.0 - 0.5 % [facility] Interpretation and review of laboratory results Abnormal [facility] LYMPHOCYTES ABSOLUTE AUTO 1.5 [facility] Lymphocytes/100 WBC (Bld) 37 % 20.5 - 60.0 % [facility] MCH (RBC) [Entitic mass] 28.9 pg 25.9 - 34.0 pg [facility] MCHC (RBC) [Mass/Vol] 32.9 g/dL 29.9 - 35.2 g/dL [facility] MCV (RBC) [Entitic vol] 87.8 fL 80.0 - 94.0 fL [facility] MONOCYTES ABSOLUTE AUTO 0.3 [facility] Monocytes/100 WBC (Bld) 7.7 % 1.7 - 12.0 % [facility] NEUTROPHILS ABSOLUTE AUTO 2.2 [facility] Neutrophils/100 WBC (Bld) 52 % 43.0 - 75.0 % [facility] Platelet mean volume (Bld) [Entitic vol] 9.3 fL Low 9.5 - 13.5 fL [facility] TBH EO # 0.1 [facility] TBH PLT 211 [facility] TB RBC 5.43 [facility] WBC 4.2 [facility] ALL CBC WITH AUTO DIFFon BASOPHILS ABSOLUTE AUTO 0 [facility] Basophils/100 WBC (Bld) 1 % 0.2 - 2.0 % [facility] Eosinophils/100 WBC (Bld) 2.9 % 0.9 - 7.0 % [facility] Erythrocyte distribution width (RBC) [Ratio] 12.3 % 11.0 - 15.0 % [facility] Hematocrit (Bld) [Volume fraction] 49.9 % 42.0 - 54.0 % [facility] Hemoglobin (Bld) [Mass/Vol] 16.5 g/dL 14.0 - 18.0 g/dL [facility] IMMATURE GRANULOCYTES ABS AUTO 0.01 [facility] Immature granulocytes/100 WBC (Bld) 0.2 % 0.0 - 0.5 % [facility] LYMPHOCYTES ABSOLUTE AUTO 1.3 [facility] Lymphocytes/100 WBC (Bld) 30.6 % 20.5 - 60.0 % [facility] MCH (RBC) [Entitic mass] 29.2 pg 25.9 - 34.0 pg [facility] MCHC (RBC) [Mass/Vol] 33.1 g/dL 29.9 - 35.2 g/dL [facility] MCV (RBC) [Entitic vol] 88.3 fL 80.0 - 94.0 fL [facility] MONOCYTES ABSOLUTE AUTO 0.4 [facility] Monocytes/100 WBC (Bld) 8.8 % 1.7 - 12.0 % [facility] NEUTROPHILS ABSOLUTE AUTO 2.4 [facility] Neutrophils/100 WBC (Bld) 56.5 % 43.0 - 75.0 % [facility] Platelet mean volume (Bld) [Entitic vol] 9.9 fL 9.5 - 13.5 fL [facility] EO # 0.1 [facility]T [facility] 5[facility]65 [facility] WBC 4.2 [facility] ALL CBC WITH AUTO DIFFon BASOPHILS ABSOLUTE AUTO 0 [facility] Basophils/100 WBC (Bld) 0.6 % 0.2 - 2.0 % [facility] Eosinophils/100 WBC (Bld) 3.5 % 0.9 - 7.0 % [facility] Erythrocyte distribution width (RBC) [Ratio] 12.3 % 11.0 - 15.0 % [facility] Hematocrit (Bld) [Volume fraction] 47.1 % 42.0 - 54.0 % [facility] Hemoglobin (Bld) [Mass/Vol] 15.4 g/dL 14.0 - 18.0 g/dL [facility] IMMATURE GRANULOCYTES ABS AUTO 0.01 [facility] Immature granulocytes/100 WBC (Bld) 0.2 % 0.0 - 0.5 % [facility] LYMPHOCYTES ABSOLUTE AUTO 1.5 [facility] Lymphocytes/100 WBC (Bld) 31.7 % 20.5 - 60.0 % [facility] MCH (RBC) [Entitic mass] 28.9 pg 25.9 - 34.0 pg [facility] MCHC (RBC) [Mass/Vol] 32.7 g/dL 29.9 - 35.2 g/dL [facility] MCV (RBC) [Entitic vol] 88.4 fL 80.0 - 94.0 fL [facility] MONOCYTES ABSOLUTE AUTO 0.4 [facility] Monocytes/100 WBC (Bld) 8.6 % 1.7 - 12.0 % [facility] NEUTROPHILS ABSOLUTE AUTO 2.7 [facility] Neutrophils/100 WBC (Bld) 55.4 % 43.0 - 75.0 % [facility] Platelet mean volume (Bld) [Entitic vol] 9.7 fL 9.5 - 13.5 fL [facility] E[facility] # 0.2 [facility] PLT [facility] RBC 5.33 [facility] WBC 4.8 [facility] ALL CBC WITH AUTO DIFFon BASOPHILS ABSOLUTE AUTO 0 [facility] Basophils/100 WBC (Bld) 0.6 % 0.2 - 2.0 % [facility] Eosinophils/100 WBC (Bld) 3.2 % 0.9 - 7.0 % [facility] Erythrocyte distribution width (RBC) [Ratio] 12.4 % 11.0 - 15.0 % [facility] Hematocrit (Bld) [Volume fraction] 47 % 42.0 - 54.0 % [facility] Hemoglobin (Bld) [Mass/Vol] 15.8 g/dL 14.0 - 18.0 g/dL [facility] IMMATURE GRANULOCYTES ABS AUTO 0.01 [facility] Immature granulocytes/100 WBC (Bld) 0.2 % 0.0 - 0.5 % [facility] Interpretation and review of laboratory results Abnormal [facility] LYMPHOCYTES ABSOLUTE AUTO 1.1 Low [facility] Lymphocytes/100 WBC (Bld) 22.8 % 20.5 - 60.0 % [facility] MCH (RBC) [Entitic mass] 29.6 pg 25.9 - 34.0 pg [facility] MCHC (RBC) [Mass/Vol] 33.6 g/dL 29.9 - 35.2 g/dL [facility] MCV (RBC) [Entitic vol] 88 fL 80.0 - 94.0 fL [facility] MONOCYTES ABSOLUTE AUTO 0.4 [facility] Monocytes/100 WBC (Bld) 8 % 1.7 - 12.0 % [facility] NEUTROPHILS ABSOLUTE AUTO 3.3 [facility] Neutrophils/100 WBC (Bld) 65.2 % 43.0 - 75.0 % [facility] Platelet mean volume (Bld) [Entitic vol] 9.3 fL Low 9.5 - 13.5 fL [facility] TBH EO # 0.2 [facility] TB PLT 222 [facility] RBC 5.34 [facility] WBC 5 [facility] ALL CBC WITH AUTO DIFFon BASOPHILS ABSOLUTE AUTO 0 [facility] Basophils/100 WBC (Bld) 0.6 % 0.2 - 2.0 % [facility] Eosinophils/100 WBC (Bld) 2.9 % 0.9 - 7.0 % [facility] Erythrocyte distribution width (RBC) [Ratio] 12.5 % 11.0 - 15.0 % [facility] Hematocrit (Bld) [Volume fraction] 47.1 % 42.0 - 54.0 % [facility] Hemoglobin (Bld) [Mass/Vol] 15.2 g/dL 14.0 - 18.0 g/dL [facility] IMMATURE GRANULOCYTES ABS AUTO 0.01 [facility] Immature granulocytes/100 WBC (Bld) 0.2 % 0.0 - 0.5 % [facility] Interpretation and review of laboratory results Abnormal [facility] LYMPHOCYTES ABSOLUTE AUTO 1.6 [facility] Lymphocytes/100 WBC (Bld) 32.7 % 20.5 - 60.0 % [facility] MCH (RBC) [Entitic mass] 28.5 pg 25.9 - 34.0 pg [facility] MCHC (RBC) [Mass/Vol] 32.3 g/dL 29.9 - 35.2 g/dL [facility] MCV (RBC) [Entitic vol] 88.4 fL 80.0 - 94.0 fL [facility] MONOCYTES ABSOLUTE AUTO 0.4 [facility] Monocytes/100 WBC (Bld) 8.5 % 1.7 - 12.0 % [facility] NEUTROPHILS ABSOLUTE AUTO 2.6 [facility] Neutrophils/100 WBC (Bld) 55.1 % 43.0 - 75.0 % [facility] Platelet mean volume (Bld) [Entitic vol] 9.3 fL Low 9.5 - 13.5 fL [facility] EO # 0.1 [facility] PLT 225 [facility] RBC 5.33 [facility] WBC 4.8 [facility] ALL CBC WITH AUTO DIFFon BASOPHILS ABSOLUTE AUTO 0.0 [facility] Basophils/100 WBC (Bld) 0.6 % 0.2 - 2.0 % [facility] Eosinophils/100 WBC (Bld) 3.2 % 0.9 - 7.0 % [facility] Erythrocyte distribution width (RBC) [Ratio] 12.4 % 11.0 - 15.0 % [facility] Hematocrit (Bld) [Volume fraction] 48.1 % 42.0 - 54.0 % [facility] Hemoglobin (Bld) [Mass/Vol] 15.8 g/dL 14.0 - 18.0 g/dL [facility] IMMATURE GRANULOCYTES ABS AUTO 0.01 [facility] Immature granulocytes/100 WBC (Bld) 0.2 % 0.0 - 0.5 % [facility] LYMPHOCYTES ABSOLUTE AUTO 1.4 [facility] Lymphocytes/100 WBC (Bld) 28.5 % 20.5 - 60.0 % [facility] MCH (RBC) [Entitic mass] 28.8 pg 25.9 - 34.0 pg [facility] MCHC (RBC) [Mass/Vol] 32.8 g/dL 29.9 - 35.2 g/dL [facility] MCV (RBC) [Entitic vol] 87.8 fL 80.0 - 94.0 fL [facility] MONOCYTES ABSOLUTE AUTO 0.4 [facility] Monocytes/100 WBC (Bld) 8.6 % 1.7 - 12.0 % [facility] NEUTROPHILS ABSOLUTE AUTO 2.9 [facility] Neutrophils/100 WBC (Bld) 58.9 % 43.0 - 75.0 % [facility] Platelet mean volume (Bld) [Entitic vol] 9.8 fL 9.5 - 13.5 fL [facility] E[facility] # 0.2 [facility] PLT 240 [facility] RBC 5.48 [facility] WBC 5.0 [facility] ALL CBC WITH AUTO DIFFon BASOPHILS ABSOLUTE AUTO 0.0 [facility] Basophils/100 WBC (Bld) 0.7 % 0.2 - 2.0 % [facility] Eosinophils/100 WBC (Bld) 2.7 % 0.9 - 7.0 % [facility] Erythrocyte distribution width (RBC) [Ratio] 12.4 % 11.0 - 15.0 % [facility] Hematocrit (Bld) [Volume fraction] 47.4 % 42.0 - 54.0 % [facility] Hemoglobin (Bld) [Mass/Vol] 15.6 g/dL 14.0 - 18.0 g/dL [facility] IMMATURE GRANULOCYTES ABS AUTO 0.01 [facility] Immature granulocytes/100 WBC (Bld) 0.2 % 0.0 - 0.5 % [facility] LYMPHOCYTES ABSOLUTE AUTO 1.3 [facility] Lymphocytes/100 WBC (Bld) 29.6 % 20.5 - 60.0 % [facility] MCH (RBC) [Entitic mass] 28.8 pg 25.9 - 34.0 pg [facility] MCHC (RBC) [Mass/Vol] 32.9 g/dL 29.9 - 35.2 g/dL [facility] MCV (RBC) [Entitic vol] 87.5 fL 80.0 - 94.0 fL [facility] MONOCYTES ABSOLUTE AUTO 0.4 [facility] Monocytes/100 WBC (Bld) 8.1 % 1.7 - 12.0 % [facility] NEUTROPHILS ABSOLUTE AUTO 2.6 [facility] Neutrophils/100 WBC (Bld) 58.7 % 43.0 - 75.0 % [facility] Platelet mean volume (Bld) [Entitic vol] 9.9 fL 9.5 - 13.5 fL [facility] TB EO # 0.1 [facility] PLT 240 [facility] RBC 5.42 [facility] WBC 4.5 [facility] URINE T PROTEIN CREAT RA TIOon 08-15-2024 CREATININE URINE RANDOM 123.63 mg/dL 20.00 - 300.00 mg/dL [facility] Interpretation and review of laboratory results Abnormal [facility] Protein (U) [Mass/Vol] 14.4 mg/dL High NINF - 11.9 mg/dL [facility] PROTEIN CREATININE RATIO URINE 0.12 [facility] ALL CBC WITH AUTO DIFFon BASOPHILS ABSOLUTE AUTO 0.0 [facility] Basophils/100 WBC (Bld) 0.8 % 0.2 - 2.0 % [facility] Eosinophils/100 WBC (Bld) 1.8 % 0.9 - 7.0 % [facility] Erythrocyte distribution width (RBC) [Ratio] 12.2 % 11.0 - 15.0 % [facility] Hematocrit (Bld) [Volume fraction] 47.2 % 42.0 - 54.0 % [facility] Hemoglobin (Bld) [Mass/Vol] 15.7 g/dL 14.0 - 18.0 g/dL [facility] IMMATURE GRANULOCYTES ABS AUTO 0.01 [facility] Immature granulocytes/100 WBC (Bld) 0.2 % 0.0 - 0.5 % [facility] LYMPHOCYTES ABSOLUTE AUTO 1.5 [facility] Lymphocytes/100 WBC (Bld) 29.9 % 20.5 - 60.0 % [facility] MCH (RBC) [Entitic mass] 29.1 pg 25.9 - 34.0 pg [facility] MCHC (RBC) [Mass/Vol] 33.3 g/dL 29.9 - 35.2 g/dL [facility] MCV (RBC) [Entitic vol] 87.4 fL 80.0 - 94.0 fL [facility] MONOCYTES ABSOLUTE AUTO 0.4 [facility] Monocytes/100 WBC (Bld) 8.8 % 1.7 - 12.0 % [facility] NEUTROPHILS ABSOLUTE AUTO 2.9 [facility] Neutrophils/100 WBC (Bld) 58.5 % 43.0 - 75.0 % [facility] Platelet mean volume (Bld) [Entitic vol] 10.0 fL 9.5 - 13.5 fL [facility] TBH EO # 0.1 [facility] TB PLT 238 [facility] RBC 5.40 [facility] WBC 4.9 [facility] URINE T PROTEIN CREAT RA TIOon 08-02-2024 CREATININE URINE RANDOM 134.02 mg/dL 20.00 - 300.00 mg/dL [facility] Interpretation and review of laboratory results Abnormal [facility] Protein (U) [Mass/Vol] 13.8 mg/dL High NINF - 11.9 mg/dL [facility] PROTEIN CREATININE RATIO URINE 0.10 [facility] 36on 06-01-2024 36 Regarding echo perfo rmed on 05/18/2024: MD Cinda Batres MA Please tell him the echo was ok and showed a small residual fluid around the heart. This is significant improvement from before. Follow up as planned. Patient informed and he verbalized understanding. Normal [facility] Office Visiton 05-13-2024 Follow-up visit [id number] George Styles 1970 M Date Provider Department Center 05/13/2024 [facility] BESSY Lopez Family History Problem Relation Age of Onset Coronary artery disease Mother Coronary artery disease Father Family Status - Relation Status Age at Mother Father Level of Service:83590 [facility] OFFICE/OUTPATIENT ESTABLISHED LOW MDM 20 MIN Reason for Visit and Comments: Follow-up [436544] - Yearly follow up Normal [facility] B-TYPE NATRIURETIC PEPTIDE ( BRAIN)on 02-26-2024 Interpretation and review of laboratory results Normal [facility] Natriuretic peptide B (Bld) [Mass/Vol] 72 pg/mL 0 - 100 pg/mL [facility] CHEM 6 (LYTES, BUN CREA)on 0 02-26-2024 Anion gap [Moles/Vol] 13 mmol/L 7 - 17 mmol/L [facility] [facility] Chloride [Moles/Vol] 107 mmol/L 98 - 10 8 mmol/L [facility] CO2 [Moles/Vol] 25 mmol/L 21 - 31 mmol/L [facility] Creatinine [Mass/Vol] 1.23 mg/dL 0.70 - 1.30 mg/dL [facility] eGFR, CKD-EPI, Male 70 - PINF [facility] Comment on above: Reported eGFR is bas ed on the CKD-EPI 2020 equation using creatinine, age, and sex. Potassium [Moles/Vol] 4.2 mmol/L 3.5 - 5.0 mmol/L [facility] Sodium [Moles/Vol] 141 mmol/L 135 - 145 mmol/L [facility] Urea nitrogen [Mass/Vol] 17 mg/dL 7 - 25 mg/dL [facility] Urea nitrogen/Creatinine [Mass ratio] 14 mg/mg [facility] CBC,PLATELETSon 01-23-2024 Erythrocyte distribution width (RBC) [Ratio] 14.2 % 10.9 - 14.3 % [facility] Hematocrit (Bld) [Volume fraction] 37.0 % Low 39.6 - 48.8 % [facility] Hemoglobin (Bld) [Mass/Vol] 12.0 g/dL Low 13.4 - 16.8 g/dL [facility] Interpretation and review of laboratory results Abnormal [facility] MCH (RBC) [Entitic mass] 28.6 pg 26.1 - 33.3 pg [facility] MCHC (RBC) [Mass/Vol] 32.4 g/dL 31.9 - 36.5 g/dL [facility] MCV (RBC) [Entitic vol] 88.1 fL 79.0 - 94.5 fL [facility] Platelet mean volume (Bld) [Entitic vol] 10.4 fL 8.7 - 12.3 fL [facility] Platelets (Bld) [#/Vol] 170 10*3/uL 146 - 337 K/uL [facility] RBC (Bld) [#/Vol] 4.20 10*6/uL Low [facility] WBC (Bld) [#/Vol] 3.70 10*3/uL Low 3.73 - 10. 10 K/uL [facility] CHEM 7 (LYTES,BUN,CREA,GLUC) on 01-23-2024 Anion gap [Moles/Vol] 14 mmol/L 7 - 17 mmol/L [facility] Chloride [Moles/Vol] 105 mmol/L 98 - 10 8 mmol/L [facility] CO2 [Moles/Vol] 25 mmol/L 21 - 31 mmol/L [facility] Creatinine [Mass/Vol] 1.32 mg/dL High 0.70 - 1.30 mg/dL [facility] eGFR, CKD-EPI, Male 65 - PINF [facility] Comment on above: Reported eGFR is bas ed on the CKD-EPI 2020 equation using creatinine, age, and sex. Glucose [Mass/Vol] 94 mg/dL 70 - 99 mg/dL [facility] Osmolality Calc [Osmolality] 296 [facility] Potassium [Moles/Vol] 3.8 mmol/L 3.5 - 5.0 mmol/L [facility] Sodium [Moles/Vol] 140 mmol/L 135 - 145 mmol/L [facility] Urea nitrogen [Mass/Vol] 23 mg/dL 7 - 25 mg/dL [facility] Urea nitrogen/Creatinine [Mass ratio] 17 mg/mg [facility] GLUCOSE POCon 01-23-2024 Glucose [Mass/Vol] 88 mg/dL 70 - 99 mg/dL [facility] POC Sample Type CAPBL [facility] Test performed at ad dress of the patient encounter. [facility] Glucose [Mass/Vol] 191 mg/dL High 70 - 99 mg/dL [facility] Interpretation and review of laboratory results Abnormal [facility] POC Sample Type CAPBL [facility] Test performed at ad dress of the patient encounter. [facility] HEPATIC FUNCTION PANELon Albumin [Mass/Vol] 3.9 g/dL 3.5 - 5.0 g/dL [facility] ALP [Catalytic activity/Vol] 83 U/L 32 - 126 U/L [facility] ALT [Catalytic activity/Vol] 9 U/L Low 10 - 52 U/L [facility] AST [Catalytic activity/Vol] 17 U/L 10 - 39 U/L [facility] Bilirubin [Mass/Vol] 1.6 mg/dL High NINF - 1.5 mg/dL [facility] Bilirubin.direct [Mass/Vol] 0.4 mg/dL High NINF - 0.3 mg/dL [facility] Protein [Mass/Vol] 6.6 g/dL 6.4 - 8.3 g/dL [facility] ITRACONAZOLE LEVELon 024 Hydroxyitraconazole [Mass/Vol] 7.6 mcg/mL [facility] Comment on above: REFERENCE VALUE No therapeutic range established; activity and serum concentration are similar to parent drug. ADDITIONAL INFORMATION This test was developed and its performance characteristics determined by [facility] in a manner consistent with CLIA requirements. This test has not been cleared or approved by the U.S. Food and Drug Administration. Test Performed by: [facility] [address] [place] [address] Pl Sql Programmer: Rosendo Bose M.D. Ph.D.; [facility]# [id number] Itraconazole [Mass/Vol] 6.0 mcg/mL [facility] Comment on above: REFERENCE VALUE >0.5 (localized infection), >1.0 (systemic infection) [facility] MAGNESIUMon 01-23-2024 Interpretation and review of laboratory results Normal [facility] Magnesium [Mass/Vol] 1.8 mg/dL 1.6 - 2 .6 mg/dL [facility] No Panel Informationon 01-23 Interpretation and review of laboratory results Abnormal [facility] TACROLIMUS LEVEL, TROUGH (SC E DRUG LEVEL)on 01-23-2024 Interpretation and review of laboratory results Normal [facility] Tacrolimus (Bld) [Mass/Vol] 7.0 ng/mL Bone Marrow Transplant: 4.0-12.0, Therapeutic: 5.0-15.0 [facility] Method performed is a chemiluminescent microparticle immunoasssay on the [employer] Former i2000. The range is based on experience at [facility] and users should be aware that target concentrations vary widely depending on concomitant therapy, time post-transplant, and desired degree of immunosuppression. [facility] CARDIAC RHYTHM (SCANNED)on 0 01-22-2024 [facility] CBC,PLATELETSon 01-22-2024 Erythrocyte distribution width (RBC) [Ratio] 14.1 % 10.9 - 14.3 % [facility] Hematocrit (Bld) [Volume fraction] 41.5 % 39.6 - 48.8 % [facility] Hemoglobin (Bld) [Mass/Vol] 13.3 g/dL Low 13.4 - 16.8 g/dL [facility] Interpretation and review of laboratory results Abnormal [facility] MCH (RBC) [Entitic mass] 27.8 pg 26.1 - 33.3 pg [facility] MCHC (RBC) [Mass/Vol] 32.0 g/dL 31.9 - 36.5 g/dL [facility] MCV (RBC) [Entitic vol] 86.8 fL 79.0 - 94.5 fL [facility] Platelet mean volume (Bld) [Entitic vol] 10.5 fL 8.7 - 12.3 fL [facility] Platelets (Bld) [#/Vol] 186 10*3/uL 146 - 337 K/uL [facility] RBC (Bld) [#/Vol] 4.78 10*6/uL [facility] WBC (Bld) [#/Vol] 3.74 10*3/uL 3.73 - 10. 10 K/uL [facility] CHEM 7 (LYTES,BUN,CREA,GLUC) on 01-22-2024 Anion gap [Moles/Vol] 13 mmol/L 7 - 17 mmol/L [facility] Chloride [Moles/Vol] 109 mmol/L High 98 - 10 8 mmol/L [facility] CO2 [Moles/Vol] 23 mmol/L 21 - 31 mmol/L [facility] Creatinine [Mass/Vol] 1.10 mg/dL 0.70 - 1.30 mg/dL [facility] eGFR, CKD-EPI, Male 81 - PINF [facility] Comment on above: Reported eGFR is bas ed on the CKD-EPI 2020 equation using creatinine, age, and sex. Glucose [Mass/Vol] 84 mg/dL 70 - 99 mg/dL [facility] Interpretation and review of laboratory results Abnormal [facility] Osmolality Calc [Osmolality] 295 [facility] Potassium [Moles/Vol] 4.0 mmol/L 3.5 - 5.0 mmol/L [facility] Sodium [Moles/Vol] 141 mmol/L 135 - 145 mmol/L [facility] Urea nitrogen [Mass/Vol] 16 mg/dL 7 - 25 mg/dL [facility] Urea nitrogen/Creatinine [Mass ratio] 15 mg/mg [facility] MAGNESIUMon 01-22-2024 Interpretation and review of laboratory results Normal [facility] Magnesium [Mass/Vol] 2.0 mg/dL 1.6 - 2 .6 mg/dL [facility] No Panel Informationon 01-22 [facility] PT,INR,PTTon 01-22-2024 aPTT Coag (PPP) [Time] 29.2 s [facility] INR Coag (Bld) [Relative time] 1.1 {INR} 0.9 - 1.1 [facility] Interpretation and review of laboratory results Abnormal [facility] PT Coag (PPP) [Time] 14.3 s High [facility] TACROLIMUS LEVEL, TROUGH (SC E DRUG LEVEL)Ordered By: Sheree Jensen on 01-22-2024 Interpretation and review of laboratory results Normal [facility] Tacrolimus (Bld) [Mass/Vol] 7.9 ng/mL Bone Marrow Transplant: 4.0-12.0, Therapeutic: 5.0-15.0 [facility] Method performed is a chemiluminescent microparticle immunoasssay on the [employer] Former i2000. The range is based on experience at [facility] and users should be aware that target concentrations vary widely depending on concomitant therapy, time post-transplant, and desired degree of immunosuppression. [facility] TYPE AND SCREENon 01-22-2024 ABO/RH(D) TYPE Positive [facility] US Unspecified body regionOr dered By: Unassigned Pacs on 01-22-2024 [facility] Work Phone: US Unspecified body regionon 01-22-2024 Radiology Study observation (narrative) [facility] CBC,PLATELETSon 01-21-2024 Erythrocyte distribution width (RBC) [Ratio] 14.0 % 10.9 - 14.3 % [facility] Hematocrit (Bld) [Volume fraction] 39.4 % Low 39.6 - 48.8 % [facility] Hemoglobin (Bld) [Mass/Vol] 12.7 g/dL Low 13.4 - 16.8 g/dL [facility] Interpretation and review of laboratory results Abnormal [facility] MCH (RBC) [Entitic mass] 28.0 pg 26.1 - 33.3 pg [facility] MCHC (RBC) [Mass/Vol] 32.2 g/dL 31.9 - 36.5 g/dL [facility] MCV (RBC) [Entitic vol] 87.0 fL 79.0 - 94.5 fL [facility] Platelet mean volume (Bld) [Entitic vol] 10.2 fL 8.7 - 12.3 fL [facility] Platelets (Bld) [#/Vol] 157 10*3/uL 146 - 337 K/uL [facility] RBC (Bld) [#/Vol] 4.53 10*6/uL [facility] WBC (Bld) [#/Vol] 3.42 10*3/uL Low 3.73 - 10. 10 K/uL [facility] CHEM 7 (LYTES,BUN,CREA,GLUC) on 01-21-2024 Anion gap [Moles/Vol] 12 mmol/L 7 - 17 mmol/L [facility] Chloride [Moles/Vol] 107 mmol/L 98 - 10 8 mmol/L [facility] CO2 [Moles/Vol] 26 mmol/L 21 - 31 mmol/L [facility] Creatinine [Mass/Vol] 1.11 mg/dL 0.70 - 1.30 mg/dL [facility] eGFR, CKD-EPI, Male 80 - PINF [facility] Comment on above: Reported eGFR is bas ed on the CKD-EPI 2020 equation using creatinine, age, and sex. Glucose [Mass/Vol] 93 mg/dL 70 - 99 mg/dL [facility] Osmolality Calc [Osmolality] 295 [facility] Potassium [Moles/Vol] 3.9 mmol/L 3.5 - 5.0 mmol/L [facility] Sodium [Moles/Vol] 141 mmol/L 135 - 145 mmol/L [facility] Urea nitrogen [Mass/Vol] 15 mg/dL 7 - 25 mg/dL [facility] Urea nitrogen/Creatinine [Mass ratio] 14 mg/mg [facility] Cardiac catheterization stud yOrdered By: Kelvin Donohue on 01-21-2024 Body surface area Derived from formula 2.08 m2 [facility] Work Phone: [facility] Work Phone: Cardiac catheterization stud yon 01-21-2024 [...] with fistula occlusion Kelvin Donohue MD, MPH [employer]. Section of Advanced Heart Failure and Transplantation Division of Cardiovascular Diseases [facility] [email or web address] MAGNESIUMon 01-21-2024 Interpretation and review of laboratory results Abnormal [facility] Magnesium [Mass/Vol] 1.5 mg/dL Low 1.6 - 2 .6 mg/dL [facility] No Panel Informationon 01-21 [facility] TACROLIMUS LEVEL, TROUGH (SC E DRUG LEVEL)on 01-21-2024 Interpretation and review of laboratory results Normal [facility] Tacrolimus (Bld) [Mass/Vol] 7.2 ng/mL Bone Marrow Transplant: 4.0-12.0, Therapeutic: 5.0-15.0 [facility] Method performed is a chemiluminescent microparticle immunoasssay on the [employer] Former i2000. The range is based on experience at [facility] and users should be aware that target concentrations vary widely depending on concomitant therapy, time post-transplant, and desired degree of immunosuppression. [facility] CBC,PLATELETSon 01-20-2024 Erythrocyte distribution width (RBC) [Ratio] 13.8 % 10.9 - 14.3 % [facility] Hematocrit (Bld) [Volume fraction] 38.9 % Low 39.6 - 48.8 % [facility] Hemoglobin (Bld) [Mass/Vol] 12.5 g/dL Low 13.4 - 16.8 g/dL [facility] Interpretation and review of laboratory results Abnormal [facility] MCH (RBC) [Entitic mass] 28.0 pg 26.1 - 33.3 pg [facility] MCHC (RBC) [Mass/Vol] 32.1 g/dL 31.9 - 36.5 g/dL [facility] MCV (RBC) [Entitic vol] 87.2 fL 79.0 - 94.5 fL [facility] Platelet mean volume (Bld) [Entitic vol] 10.2 fL 8.7 - 12.3 fL [facility] Platelets (Bld) [#/Vol] 166 10*3/uL 146 - 337 K/uL [facility] RBC (Bld) [#/Vol] 4.46 10*6/uL [facility] WBC (Bld) [#/Vol] 3.79 10*3/uL 3.73 - 10. 10 K/uL [facility] CHEM 7 (LYTES,BUN,CREA,GLUC) on 01-20-2024 Anion gap [Moles/Vol] 12 mmol/L 7 - 17 mmol/L [facility] Chloride [Moles/Vol] 105 mmol/L 98 - 10 8 mmol/L [facility] CO2 [Moles/Vol] 28 mmol/L 21 - 31 mmol/L [facility] Creatinine [Mass/Vol] 1.12 mg/dL 0.70 - 1.30 mg/dL [facility] eGFR, CKD-EPI, Male 79 - PINF [facility] Comment on above: Reported eGFR is bas ed on the CKD-EPI 2020 equation using creatinine, age, and sex. Glucose [Mass/Vol] 88 mg/dL 70 - 99 mg/dL [facility] Osmolality Calc [Osmolality] 294 [facility] Potassium [Moles/Vol] 3.8 mmol/L 3.5 - 5.0 mmol/L [facility] Sodium [Moles/Vol] 141 mmol/L 135 - 145 mmol/L [facility] Urea nitrogen [Mass/Vol] 15 mg/dL 7 - 25 mg/dL [facility] Urea nitrogen/Creatinine [Mass ratio] 13 mg/mg [facility] Cardiac catheterization stud yon 01-20-2024 [facility] Radiology Study observation (narrative) [facility] Radiology Study observation (narrative) [facility] EBV BY PCR, QUANTITATIVE,BLO ODOrdered By: Charlotte Jensen on 01-20-2024 EBV DNA ESTELITA+probe (Unsp spec) [#/Vol] NINF [facility] Interpretation and review of laboratory results Normal [facility] This test was perfor med using a real time PCR assay. The dynamic range for this assay is 1000-5,000,000 IU/mL. A result <1000 IU/mL does not rule out the presence of EBV DNA in quantities below the sensitivity of this assay. This test was developed and its performance characteristics determined by [facility]. It has not been cleared or approved by the FDA. The laboratory is regulated under CLIA as qualified to perform high-complexity testing. This test is used for clinical purposes. It should not be regarded as investigational or for research. [facility] HEPATIC FUNCTION PANELon Albumin [Mass/Vol] 3.7 g/dL 3.5 - 5.0 g/dL [facility] ALP [Catalytic activity/Vol] 73 U/L 32 - 126 U/L [facility] ALT [Catalytic activity/Vol] 12 U/L 10 - 52 U/L [facility] AST [Catalytic activity/Vol] 19 U/L 10 - 39 U/L [facility] Bilirubin [Mass/Vol] 2.1 mg/dL High NINF - 1.5 mg/dL [facility] Bilirubin.direct [Mass/Vol] 0.5 mg/dL High NINF - 0.3 mg/dL [facility] Interpretation and review of laboratory results Abnormal [facility] Protein [Mass/Vol] 6.1 g/dL Low 6.4 - 8.3 g/dL [facility] MAGNESIUMon 01-20-2024 Interpretation and review of laboratory results Normal [facility] Magnesium [Mass/Vol] 1.6 mg/dL 1.6 - 2 .6 mg/dL [facility] No Panel Informationon 01-20 [facility] POCT CO-OXIMETRYon Hemoglobin (Bld) [Mass/Vol] 12.8 g/dL Low 13.4 - 16.8 g/dL [facility] Interpretation and review of laboratory results Abnormal [facility] Oxyhemoglobin 69 % Low 94 - 98 % [facility] Ordering physician notified. Test performed at address of the patient encounter. [facility] Hemoglobin (Bld) [Mass/Vol] 13.3 g/dL Low 13.4 - 16.8 g/dL [facility] Interpretation and review of laboratory results Abnormal [facility] Oxyhemoglobin 69 % Low 94 - 98 % [facility] Ordering physician notified. Test performed at address of the patient encounter. [facility] PT,INR,PTTon 01-20-2024 aPTT Coag (PPP) [Time] 30.6 s [facility] INR Coag (Bld) [Relative time] 1.2 {INR} High 0.9 - 1.1 [facility] Interpretation and review of laboratory results Abnormal [facility] PT Coag (PPP) [Time] 15.5 s High [facility] TACROLIMUS LEVEL, TROUGH (SC E DRUG LEVEL)Ordered By: Yanira Marcum on 01-20-2024 Interpretation and review of laboratory results Normal [facility] Tacrolimus (Bld) [Mass/Vol] 7.7 ng/mL Bone Marrow Transplant: 4.0-12.0, Therapeutic: 5.0-15.0 [facility] Method performed is a chemiluminescent microparticle immunoasssay on the [employer] Former i2000. The range is based on experience at [facility] and users should be aware that target concentrations vary widely depending on concomitant therapy, time post-transplant, and desired degree of immunosuppression. [facility] CBC,PLATELETSon 01-19-2024 Erythrocyte distribution width (RBC) [Ratio] 13.9 % 10.9 - 14.3 % [facility] Hematocrit (Bld) [Volume fraction] 37.5 % Low 39.6 - 48.8 % [facility] Hemoglobin (Bld) [Mass/Vol] 12.1 g/dL Low 13.4 - 16.8 g/dL [facility] Interpretation and review of laboratory results Abnormal [facility] MCH (RBC) [Entitic mass] 28.3 pg 26.1 - 33.3 pg [facility] MCHC (RBC) [Mass/Vol] 32.3 g/dL 31.9 - 36.5 g/dL [facility] MCV (RBC) [Entitic vol] 87.8 fL 79.0 - 94.5 fL [facility] Platelet mean volume (Bld) [Entitic vol] 10.4 fL 8.7 - 12.3 fL [facility] Platelets (Bld) [#/Vol] 163 10*3/uL 146 - 337 K/uL [facility] RBC (Bld) [#/Vol] 4.27 10*6/uL Low [facility] WBC (Bld) [#/Vol] 3.69 10*3/uL Low 3.73 - 10. 10 K/uL [facility] CHEM 7 (LYTES,BUN,CREA,GLUC) on 01-19-2024 Anion gap [Moles/Vol] 14 mmol/L 7 - 17 mmol/L [facility] Chloride [Moles/Vol] 106 mmol/L 98 - 10 8 mmol/L [facility] CO2 [Moles/Vol] 24 mmol/L 21 - 31 mmol/L [facility] Creatinine [Mass/Vol] 1.13 mg/dL 0.70 - 1.30 mg/dL [facility] eGFR, CKD-EPI, Male 78 - PINF [facility] Comment on above: Reported eGFR is bas ed on the CKD-EPI 2020 equation using creatinine, age, and sex. Glucose [Mass/Vol] 86 mg/dL 70 - 99 mg/dL [facility] Osmolality Calc [Osmolality] 293 [facility] Potassium [Moles/Vol] 3.8 mmol/L 3.5 - 5.0 mmol/L [facility] Sodium [Moles/Vol] 140 mmol/L 135 - 145 mmol/L [facility] Urea nitrogen [Mass/Vol] 16 mg/dL 7 - 25 mg/dL [facility] Urea nitrogen/Creatinine [Mass ratio] 14 mg/mg [facility] HISTOPLASMA AND BLASTOMYCES ANTIGEN, ENZYME IMMUNOASSAY, SERMon 01-19-2024 Histoplasma/Blastomy antonia Ag Result Not detected Not Detected [facility] Comment on above: No antigen from Hist oplasma or Blastomyces detected. False negative results may occur depending on extent of disease, and/or site of infection. Repeat testing on a new specimen if clinically indicated. Histoplasma/Blastomy antonia Ag Value Not detected ng/mL [facility] Comment on above: ADDITIONAL INFORMATION This test was developed and its performance characteristics determined by [facility] in a manner consistent with CLIA requirements. This test has not been cleared or approved by the U.S. Food and Drug Administration. Test Performed by: [facility] [address] [place] [address] Pl Sql Programmer: Rosendo Bose M.D. Ph.D.; CLIA# [id number] [facility] MAGNESIUMon 01-19-2024 Interpretation and review of laboratory results Normal [facility] Magnesium [Mass/Vol] 1.8 mg/dL 1.6 - 2 .6 mg/dL [facility] No Panel Informationon 01-19 [facility] TACROLIMUS LEVEL, TROUGH (SC E DRUG LEVEL)Ordered By: Raymundo Mehta on 01-19-2024 Interpretation and review of laboratory results Normal [facility] Tacrolimus (Bld) [Mass/Vol] 6.8 ng/mL Bone Marrow Transplant: 4.0-12.0, Therapeutic: 5.0-15.0 [facility] Method performed is a chemiluminescent microparticle immunoasssay on the [employer] Former i2000. The range is based on experience at [facility] and users should be aware that target concentrations vary widely depending on concomitant therapy, time post-transplant, and desired degree of immunosuppression. [facility] US AV fistulaOrdered By: Diana Reyes on 01-19-2024 [facility] Work Phone: US AV fistulaon 01-19-2024 Radiology Study observation (narrative) [facility] AFP TUMOR MARKEROrdered By: Francisca Alaniz on 01-18-2024 AFP.tumor marker [Mass/Vol] ng/mL NINF - 8.1 ng/mL [facility] Comment on above: This test was perfor med on the [employer] Immunoassay platform by [employer] which is a two-site sandwich chemiluminescent immunoassay. It is important to note that assays using different manufacturers and/or methods may not be comparable. Interpretation and review of laboratory results Normal [facility] CBC,PLATELETSon 01-18-2024 Erythrocyte distribution width (RBC) [Ratio] 13.9 % 10.9 - 14.3 % [facility] Hematocrit (Bld) [Volume fraction] 38.4 % Low 39.6 - 48.8 % [facility] Hemoglobin (Bld) [Mass/Vol] 12.1 g/dL Low 13.4 - 16.8 g/dL [facility] Interpretation and review of laboratory results Abnormal [facility] MCH (RBC) [Entitic mass] 27.8 pg 26.1 - 33.3 pg [facility] MCHC (RBC) [Mass/Vol] 31.5 g/dL Low 31.9 - 36.5 g/dL [facility] MCV (RBC) [Entitic vol] 88.3 fL 79.0 - 94.5 fL [facility] Platelet mean volume (Bld) [Entitic vol] 10.4 fL 8.7 - 12.3 fL [facility] Platelets (Bld) [#/Vol] 183 10*3/uL 146 - 337 K/uL [facility] RBC (Bld) [#/Vol] 4.35 10*6/uL Low [facility] WBC (Bld) [#/Vol] 3.66 10*3/uL Low 3.73 - 10. 10 K/uL [facility] CHEM 7 (LYTES,BUN,CREA,GLUC) on 01-18-2024 Anion gap [Moles/Vol] 11 mmol/L 7 - 17 mmol/L [facility] Chloride [Moles/Vol] 108 mmol/L 98 - 10 8 mmol/L [facility] CO2 [Moles/Vol] 26 mmol/L 21 - 31 mmol/L [facility] Creatinine [Mass/Vol] 1.00 mg/dL 0.70 - 1.30 mg/dL [facility] eGFR, CKD-EPI, Male - PINF [facility] Comment on above: Reported eGFR is bas ed on the CKD-EPI 2020 equation using creatinine, age, and sex. Glucose [Mass/Vol] 89 mg/dL 70 - 99 mg/dL [facility] Osmolality Calc [Osmolality] 295 [facility] Potassium [Moles/Vol] 3.9 mmol/L 3.5 - 5.0 mmol/L [facility] Sodium [Moles/Vol] 141 mmol/L 135 - 145 mmol/L [facility] Urea nitrogen [Mass/Vol] 16 mg/dL 7 - 25 mg/dL [facility] Urea nitrogen/Creatinine [Mass ratio] 16 mg/mg [facility] Cardiac [facility] study Procedure Ordered By: Gian Carlos on 01-18-2024 Ao ASC index 1.63 cm/m2 [facility] Work Phone: Ao peak meliton 1.46 m/s [facility] Work Phone: Ao SOV index 1.56 cm/m2 [facility] Work Phone: Ao STJ index 1.25 cm/m2 [facility] Work Phone: Ao VTI 35.74 cm [facility] Work Phone: Ascending aorta 3.39 cm [facility] Work Phone: AV LVOT peak gradient 4 mmHg [facility] Work Phone: [facility] peak gradient 9 mmHG [facility] Work Phone: [phone] AV valve area 3.09 cm2 [facility] Work Phone: AV Velocity Ratio 0.73 [facility] Work Phone: VEGA (continuity Vmax) 3.01 cm2 [facility] Work Phone: VEGA (continuity VTI) 3.09 cm2 [facility] Work Phone: VEGA index (continuity Vmax) 1.45 m/s [facility] Work Phone: EVGA index (continuity VTI) 1.49 cm2/m2 [facility] Work Phone: Avg e' pk meliton 0.07 m/s [facility] Work Phone: Avg E/e' ratio 19.45 [facility] Work Phone: Body surface area Derived from formula 2.08 m2 [facility] Work Phone: BP EF 62 % [facility] Work Phone: DI (Vmax) 0.73 [facility] Work Phone: DI (VTI) 0.74 m/2 [facility] Work Phone: E wave decelartion time 180.38 msec [facility] Work Phone: e' lateral pk meliton 0.0789 m/s [facility] Work Phone: e' lateral pk meliton 0.08 m/s [facility] Work Phone: e' septal pk meliton 0.0653 m/s [facility] Work Phone: e' septal pk meliton 0.07 m/s [facility] Work Phone: E/A ratio 2.67 [facility] Work Phone: E/e' lateral ratio 17.62 [facility] Work Phone: E/e' septal [facility]: EF SP 2CH 66 [facility] Work Phone: [phone] EF SP 4CH 58 [facility] Work Phone: [phone] FS 28 % 28 - 44 % [facility] Work Phone: [phone] IVC ostium 2.30 cm [facility] Work Phone: IVS 1.11 cm [facility] Work Phone: LA AREA 2CH 24.36 cm2 [facility] Work Phone: LA area 4CH 20.36 cm2 [facility] Work Phone: [phone] LA ESV BP (MOD) 64 [facility]: LA ESV BP (MOD) index 31 mL/m2 [facility] Work Phone: LA ESV SP 2CH (MOD) 76 mL [facility] Work Phone: LA ESV SP 4CH (MOD) 53 mL [facility] Work Phone: [phone] [facility] BP [facility] EDV SP 2CH 190 mL [facility] Work Phone: LV EDV SP 4CH 166 mL [facility] Work Phone: LV ESV BP 69 mL [facility] Work Phone: LV ESV SP 2CH 65 mL [facility] Work Phone: LV ESV SP 4CH 70 mL [facility] Work Phone: LV mass 254.73 g [facility] Work Phone: LV Mass Index 122.5 g/m2 [facility] Work [facility]: LV RWT 0.42 [facility] Work Phone: LV stroke volume BP (ml) 111 mL [facility] Work Phone: LV stroke volume index BP 53.37 mL/m2 [facility] Work Phone: LVIDD 5.53 cm [facility] Work Phone: LVIDS 3.97 cm [facility] Work Phone: LVOT area 4.15 cm2 [facility] Work Phone: LVOT diameter 2.30 cm [facility] Work Phone: LVOT peak meliton 1.06 m/s [facility] Work Phone: LVOT peak VTI 26.61 cm [facility] Work Phone: LVOT stroke volume 111 cm3 [facility] Work Phone: LVOT stroke volume index 53.13 ml/m2 [facility] Work Phone: Mr max meliton 4.21 m/s [facility] Work Phone: MR VTI 134.50 cm [facility] Work Phone: MV mean gradient 3 mmHg [facility] Work Phone: MV peak gradient 11 mmHg [facility] Work Phone: MV pk A meliton 0.52 m/s [facility] Work Phone: MV pk E meliton 1.39 m/s [facility] Work Phone: MV stenosis pressure 1/2 time 58.56 ms [facility] Work Phone: MV valve area by continuity eq 2.93 cm2 [facility] Work Phone: MV valve area p 1/2 method 3.76 cm2 [facility] Work Phone: MV VTI 37.70 cm [facility] Work Phone: MVA (continuity VTI) 2.92 cm [facility] Work Phone: [facility] AV VTI RATIO PRE STRESS 0.74 [facility] Work Phone: [facility] ECHO LV BIPLANE SYSTOLIC VOLUME INDEX 33.17 mL/m2 [facility] Work Phone: [facility] ECHO LV BP DIASTOLIC VOLUME INDEX 86.54 mL/m2 [facility] Work Phone: [facility] ECHO MR PEAK GRADIENT 70.94 mmHg [facility] Work Phone: PW 1.16 cm [facility] Work Phone: RA area 4CH (MOD) 14.50 cm2 [facility] Work Phone: RA vol index 4CH (MOD) 18.27 mL/m2 [facility] Work Phone: Right atrium volume 4 chamber method of disks 38 mL [facility] Work Phone: RV Area diastolic 33.20 cm2 [facility] Work Phone: RV Area systolic 21.30 cm2 [facility] Work Phone: RV basal diam 4.52 cm [facility] Work Phone: RV Fractional area change 35.8 % [facility] Work Phone: RV long diam 8.96 cm [facility] Work Phone: RV mid diam 3.70 cm [facility] Work Phone: RV S' 22.01 cm/s [facility] Work Phone: RVOT peak gradient [facility]: [facility] peak meliton 0.96 m/s [facility] Work Phone: RVOT peak VTI 20.86 cm [facility] Work Phone: Sinus 3.24 cm [facility] Work Phone: STJ 2.61 cm [facility] Work Phone: Stroke Volume 111 cm/mL [facility] Work Phone: [facility] TAPSE 2.19 cm [facility] Work Phone: [facility] Work Phone: Cardiac echo study Procedure on [...] echocardiography study was performed. Imaging system used: Zyngenia. Indications Indications for study: shortness of breath. [facility] Radiology Study observation (narrative) [facility] HEPATIC FUNCTION PANELon Albumin [Mass/Vol] 3.5 g/dL 3.5 - 5.0 g/dL [facility] ALP [Catalytic activity/Vol] 70 U/L 32 - 126 U/L [facility] ALT [Catalytic activity/Vol] 8 U/L Low 10 - 52 U/L [facility] AST [Catalytic activity/Vol] 20 U/L 10 - 39 U/L [facility] Bilirubin [Mass/Vol] 1.7 mg/dL High NINF - 1.5 mg/dL [facility] Bilirubin.direct [Mass/Vol] 0.4 mg/dL High NINF - 0.3 mg/dL [facility] Protein [Mass/Vol] 6.0 g/dL Low 6.4 - 8.3 g/dL [facility] MAGNESIUMon 01-18-2024 Magnesium [Mass/Vol] 1.5 mg/dL Low 1.6 - 2 .6 mg/dL [facility] No Panel Informationon 01-18 Interpretation and review of laboratory results Abnormal [facility] PT,INR,PTTon 01-18-2024 aPTT Coag (PPP) [Time] 30.0 s [facility] INR Coag (Bld) [Relative time] 1.1 {INR} 0.9 - 1.1 [facility] Interpretation and review of laboratory results Abnormal [facility] PT Coag (PPP) [Time] 14.5 s High [facility] TSH W/FT4 REFLEXon Interpretation and review of laboratory results Normal [facility] TSH Qn 2.660 m[IU]/L [facility] DARYL AURIS SCREEN BY PCRO rdered By: Mynor Alejandro on 01-17-2024 Daryl auris Screen by PCR Not detected Not Detected [facility] Interpretation and review of laboratory results Normal [facility] This test was perfor med using a real-time PCR assay. This test was developed, and its performance characteristics determined by [facility] at [facility]. It has not been cleared or approved by the FDA. The laboratory is regulated under CLIA as qualified to perform high-complexity testing. This test is used for clinical purposes. It should not be regarded as investigational or for research. [facility] CBC,PLATELETSon 01-17-2024 Erythrocyte distribution width (RBC) [Ratio] 14.0 % 10.9 - 14.3 % [facility] Hematocrit (Bld) [Volume fraction] 37.2 % Low 39.6 - 48.8 % [facility] Hemoglobin (Bld) [Mass/Vol] 12.0 g/dL Low 13.4 - 16.8 g/dL [facility] Interpretation and review of laboratory results Abnormal [facility] MCH (RBC) [Entitic mass] 27.9 pg 26.1 - 33.3 pg [facility] MCHC (RBC) [Mass/Vol] 32.3 g/dL 31.9 - 36.5 g/dL [facility] MCV (RBC) [Entitic vol] 86.5 fL 79.0 - 94.5 fL [facility] Platelet mean volume (Bld) [Entitic vol] 10.5 fL 8.7 - 12.3 fL [facility] Platelets (Bld) [#/Vol] 159 10*3/uL 146 - 337 K/uL [facility] RBC (Bld) [#/Vol] 4.30 10*6/uL Low [facility] WBC (Bld) [#/Vol] 3.69 10*3/uL Low 3.73 - 10. 10 K/uL [facility] CHEM 7 (LYTES,BUN,CREA,GLUC) on 01-17-2024 Anion gap [Moles/Vol] 13 mmol/L 7 - 17 mmol/L [facility] Chloride [Moles/Vol] 109 mmol/L High 98 - 10 8 mmol/L [facility] CO2 [Moles/Vol] 21 mmol/L 21 - 31 mmol/L [facility] Creatinine [Mass/Vol] 1.04 mg/dL 0.70 - 1.30 mg/dL [facility] eGFR, CKD-EPI, Male 86 - PINF [facility] Comment on above: Reported eGFR is bas ed on the CKD-EPI 2020 equation using creatinine, age, and sex. Glucose [Mass/Vol] 82 mg/dL 70 - 99 mg/dL [facility] Osmolality Calc [Osmolality] 292 [facility] Potassium [Moles/Vol] 4.4 mmol/L 3.5 - 5.0 mmol/L [facility] Sodium [Moles/Vol] 139 mmol/L 135 - 145 mmol/L [facility] Urea nitrogen [Mass/Vol] 17 mg/dL 7 - 25 mg/dL [facility] Urea nitrogen/Creatinine [Mass ratio] 16 mg/mg [facility] CT Abdomen and Pelvis WO con traston [...] unremarkable. 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 Right lower quadrant [...] unremarkable. 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 Right lower quadrant [...] the middle lobe. Trace left pleural effusion. [facility] Radiology Study observation (narrative) [facility] HEPATIC FUNCTION PANELon Albumin [Mass/Vol] 3.5 g/dL 3.5 - 5.0 g/dL [facility] ALP [Catalytic activity/Vol] 73 U/L 32 - 126 U/L [facility] ALT [Catalytic activity/Vol] 7 U/L Low 10 - 52 U/L [facility] AST [Catalytic activity/Vol] 25 U/L 10 - 39 U/L [facility] Bilirubin [Mass/Vol] 1.8 mg/dL High NINF - 1.5 mg/dL [facility] Bilirubin.direct [Mass/Vol] 0.3 mg/dL High NINF - 0.3 mg/dL [facility] Protein [Mass/Vol] 6.0 g/dL Low 6.4 - 8.3 g/dL [facility] MAGNESIUMon 01-17-2024 Interpretation and review of laboratory results Normal [facility] Magnesium [Mass/Vol] 1.7 mg/dL 1.6 - 2 .6 mg/dL [facility] No Panel Informationon 01-17 Interpretation and review of laboratory results Abnormal [facility] PT,INR,PTTon 01-17-2024 aPTT Coag (PPP) [Time] 29.9 s [facility] INR Coag (Bld) [Relative time] 1.1 {INR} 0.9 - 1.1 [facility] Interpretation and review of laboratory results Abnormal [facility] PT Coag (PPP) [Time] 14.5 s High [facility] B-TYPE NATRIURETIC PEPTIDE ( BRAIN)on 01-16-2024 Interpretation and review of laboratory results Abnormal [facility] Natriuretic peptide B (Bld) [Mass/Vol] 212 pg/mL High 0 - 100 pg/mL [facility] CALCIUMon 01-16-2024 Calcium [Mass/Vol] 8.5 mg/dL Low 8.6 - 10. 5 mg/dL [facility] CBC AND ELECTRONIC DIFFon Basophils (Bld) [#/Vol] K/uL 0.00 - 0.09 K/uL [facility] Basophils/100 WBC (Bld) 0.6 % [facility] Differential cell count method Nom (Bld) Electronic Differential [facility] Eosinophils (Bld) [#/Vol] 0.09 10*3/uL 0.00 - 0.48 K/uL [facility] Eosinophils/100 WBC (Bld) 2.5 % [facility] Erythrocyte distribution width (RBC) [Ratio] 14.0 % 10.9 - 14.3 % [facility] Hematocrit (Bld) [Volume fraction] 37.4 % Low 39.6 - 48.8 % [facility] Hemoglobin (Bld) [Mass/Vol] 12.1 g/dL Low 13.4 - 16.8 g/dL [facility] Immature granulocytes (Bld) [#/Vol] K/uL NINF - 0.07 K/uL [facility] Immature granulocytes/100 WBC (Bld) 0.3 % [facility] Interpretation and review of laboratory results Abnormal [facility] Lymphocytes (Bld) [#/Vol] 1.16 10*3/uL 0.83 - 3.57 K/uL [facility] Lymphocytes/100 WBC (Bld) 32.0 % [facility] MCH (RBC) [Entitic mass] 28.4 pg 26.1 - 33.3 pg [facility] MCHC (RBC) [Mass/Vol] 32.4 g/dL 31.9 - 36.5 g/dL [facility] MCV (RBC) [Entitic vol] 87.8 fL 79.0 - 94.5 fL [facility] Monocytes (Bld) [#/Vol] 0.43 10*3/uL 0.24 - 0.93 K/uL [facility] Monocytes/100 WBC (Bld) 11.9 % [facility] Neutrophils (Bld) [#/Vol] 1.91 10*3/uL 1.57 - 6.19 K/uL [facility] Nucleated RBC/100 WBC (Bld) [Ratio] 0.0 % [facility] Platelet mean volume (Bld) [Entitic vol] 10.1 fL 8.7 - 12.3 fL [facility] Platelets (Bld) [#/Vol] 155 10*3/uL 146 - 337 K/uL [facility] RBC (Bld) [#/Vol] 4.26 10*6/uL Low [facility] Segmented neutrophils/100 WBC (Bld) 52.7 % [facility] WBC (Bld) [#/Vol] 3.62 10*3/uL Low 3.73 - 10. 10 K/uL [facility] CHEM 7 (LYTES,BUN,CREA,GLUC) on 01-16-2024 Anion gap [Moles/Vol] 11 mmol/L 7 - 17 mmol/L [facility] Chloride [Moles/Vol] 108 mmol/L 98 - 10 8 mmol/L [facility] CO2 [Moles/Vol] 24 mmol/L 21 - 31 mmol/L [facility] Creatinine [Mass/Vol] 1.04 mg/dL 0.70 - 1.30 mg/dL [facility] eGFR, CKD-EPI, Male 86 - PINF [facility] Comment on above: Reported eGFR is bas ed on the CKD-EPI 2020 equation using creatinine, age, and sex. Glucose [Mass/Vol] 95 mg/dL 70 - 99 mg/dL [facility] Osmolality Calc [Osmolality] 293 [facility] Potassium [Moles/Vol] 4.0 mmol/L 3.5 - 5.0 mmol/L [facility] Sodium [Moles/Vol] 139 mmol/L 135 - 145 mmol/L [facility] Urea nitrogen [Mass/Vol] 19 mg/dL 7 - 25 mg/dL [facility] Urea nitrogen/Creatinine [Mass ratio] 18 mg/mg [facility] D-DIMER,QUANTITATIVEOrdered By: Shaji Kelly on 01-16-2024 Fibrin D-dimer FEU (PPP) [Mass/Vol] 0.67 High [facility] Comment on above: The D-Dimer assay is intended for use in conjuction with a clinical pretest probability (PTP) assessment model to exclude pulmonary embolism (PE) and as an aid in the diagnosis of Deep Vein Thrombosis (DVT) in outpatients suspected of PE or DVT. For the assay in use at [facility] ([facility]), a cutoff of <0.50 mcg/mL has a Negative Predictive Value of 99.7% for exclusion of DVT in low and moderate PTP patients. Interpretation and review of laboratory results Abnormal [facility] HEPATIC FUNCTION PANELon Albumin [Mass/Vol] 3.7 g/dL 3.5 - 5.0 g/dL [facility] ALP [Catalytic activity/Vol] 70 U/L 32 - 126 U/L [facility] ALT [Catalytic activity/Vol] 8 U/L Low 10 - 52 U/L [facility] AST [Catalytic activity/Vol] 21 U/L 10 - 39 U/L [facility] Bilirubin [Mass/Vol] 1.9 mg/dL [facility] - 1.[facility] mg/dL [facility] Bilirubin.direct [Mass/Vol] 0.4 mg/dL High NINF - 0.3 mg/dL [facility] Protein [Mass/Vol] 6.1 g/dL Low 6.4 - 8.3 g/dL [facility] MAGNESIUMon 01-16-2024 Magnesium [Mass/Vol] 1.7 mg/dL 1.6 - 2 .6 mg/dL [facility] No Panel Informationon 01-16 Interpretation and review of laboratory results Abnormal [facility] Interpretation and review of laboratory results Normal [facility] PHOSPHATE, INORGANICon 01-16 Phosphate [Mass/Vol] 4.1 mg/dL 2.2 - 4 .6 mg/dL [facility] PT,INR,PTTon 01-16-2024 aPTT Coag (PPP) [Time] 29.6 s [facility] INR Coag (Bld) [Relative time] 1.2 {INR} High 0.9 - 1.1 [facility] Interpretation and review of laboratory results Abnormal [facility] PT Coag (PPP) [Time] 14.9 s High [facility] TACROLIMUS LEVEL, TROUGH (SC E DRUG LEVEL)Ordered By: Jimy Castillo on 01-16-2024 Interpretation and review of laboratory results Normal [facility] Tacrolimus (Bld) [Mass/Vol] 5.7 ng/mL Bone Marrow Transplant: 4.0-12.0, Therapeutic: 5.0-15.0 [facility] Method performed is a chemiluminescent microparticle immunoasssay on the [employer] i2000. The range is based on experience at [facility] and users should be aware that target concentrations vary widely depending on concomitant therapy, time post-transplant, and desired degree of immunosuppression. [facility] US.doppler Abdominal vessels on 01-16-2024 [...] Trace right upper quadrant ascites. [facility] Radiology Study observation (narrative) [facility] US.doppler Abdominal vessels Ordered By: Iona Duran on 01-16-2024 [facility] Work Phone: XR Chest PA and Lateralon [...] IMPRESSION: Moderate right pleural effusion. [facility] Radiology Study observation (narrative) [facility] XR Chest PA and LateralOrder ed By: Daisha Patterson on 01-16-2024 [facility] Work Phone: ALL CBC WITH AUTO DIFFon BASOPHILS ABSOLUTE AUTO 0.0 [facility] Basophils/100 WBC (Bld) 0.5 % 0.2 - 2.0 % [facility] Eosinophils/100 WBC (Bld) 2.8 % 0.9 - 7.0 % [facility] Erythrocyte distribution width (RBC) [Ratio] 13.8 % 11.0 - 15.0 % [facility] Hematocrit (Bld) [Volume fraction] 43.7 % 42.0 - 54.0 % [facility] Hemoglobin (Bld) [Mass/Vol] 14.0 g/dL 14.0 - 18.0 g/dL [facility] IMMATURE GRANULOCYTES ABS AUTO 0.01 [facility] Immature granulocytes/100 WBC (Bld) 0.3 % 0.0 - 0.5 % [facility] LYMPHOCYTES ABSOLUTE AUTO 1.5 [facility] Lymphocytes/100 WBC (Bld) 37.5 % 20.5 - 60.0 % [facility] MCH (RBC) [Entitic mass] 28.4 pg 25.9 - 34.0 pg [facility] MCHC (RBC) [Mass/Vol] 32.0 g/dL 29.9 - 35.2 g/dL [facility] MCV (RBC) [Entitic vol] 88.6 fL 80.0 - 94.0 fL [facility] MONOCYTES ABSOLUTE AUTO 0.5 [facility] Monocytes/100 WBC (Bld) 11.9 % 1.7 - 12.0 % [facility] NEUTROPHILS ABSOLUTE AUTO 1.9 [facility] Neutrophils/100 WBC (Bld) 47.0 % 43.0 - 75.0 % [facility] Platelet mean volume (Bld) [Entitic vol] 10.3 fL 9.5 - 13.5 fL [facility] TBH EO # 0.1 [facility] TBH PLT 180 [facility] TB RBC 4.93 [facility] TB WBC 4.0 [facility] ALL CBC WITH AUTO DIFFon BASOPHILS ABSOLUTE AUTO 0.0 [facility] Basophils/100 WBC (Bld) 0.5 % 0.2 - 2.0 % [facility] Eosinophils/100 WBC (Bld) 2.6 % 0.9 - 7.0 % [facility] Erythrocyte distribution width (RBC) [Ratio] 13.5 % 11.0 - 15.0 % [facility] Hematocrit (Bld) [Volume fraction] 43.8 % 42.0 - 54.0 % [facility] Hemoglobin (Bld) [Mass/Vol] 14.0 g/dL 14.0 - 18.0 g/dL [facility] IMMATURE GRANULOCYTES ABS AUTO 0.00 [facility] Immature granulocytes/100 WBC (Bld) 0.0 % 0.0 - 0.5 % [facility] Interpretation and review of laboratory results Abnormal [facility] LYMPHOCYTES ABSOLUTE AUTO 1.8 [facility] Lymphocytes/100 WBC (Bld) 45.2 % 20.5 - 60.0 % [facility] MCH (RBC) [Entitic mass] 27.9 pg 25.9 - 34.0 pg [facility] MCHC (RBC) [Mass/Vol] 32.0 g/dL 29.9 - 35.2 g/dL [facility] MCV (RBC) [Entitic vol] 87.4 fL 80.0 - 94.0 fL [facility] MONOCYTES ABSOLUTE AUTO 0.4 [facility] Monocytes/100 WBC (Bld) 9.6 % 1.7 - 12.0 % [facility] NEUTROPHILS ABSOLUTE AUTO 1.6 [facility] Neutrophils/100 WBC (Bld) 42.1 % Low 43.0 - 75.0 % [facility] Platelet mean volume (Bld) [Entitic vol] 9.8 fL 9.5 - 13.5 fL [facility] TBH EO # 0.1 [facility] TBH PLT 180 [facility] RBC 5.01 [facility] WBC 3.9 Low [facility] CHEM 7 (LYTES,BUN,CREA,GLUC) on 09-11-2023 Anion gap [Moles/Vol] 13 mmol/L 7 - 17 mmol/L [facility] Chloride [Moles/Vol] 111 mmol/L High 98 - 10 8 mmol/L [facility] CO2 [Moles/Vol] 20 mmol/L Low 21 - 31 mmol/L [facility] Creatinine [Mass/Vol] 1.13 mg/dL 0.70 - 1.30 mg/dL [facility] eGFR, CKD-EPI, Male 78 - PINF [facility] Glucose [Mass/Vol] 109 mg/dL High 70 - 99 mg/dL [facility] Interpretation and review of laboratory results Abnormal [facility] Osmolality Calc [Osmolality] 295 [facility] Potassium [Moles/Vol] 4.3 mmol/L 3.5 - 5.0 mmol/L [facility] Sodium [Moles/Vol] 140 mmol/L 135 - 145 mmol/L [facility] Urea nitrogen [Mass/Vol] 16 mg/dL 7 - 25 mg/dL [facility] Urea nitrogen/Creatinine [Mass ratio] 14 mg/mg [facility] GLUCOSE POCon 09-11-2023 Glucose [Mass/Vol] 108 mg/dL High 70 - 99 mg/dL [facility] Interpretation and review of laboratory results Abnormal [facility] POC Sample Type CAPBL [facility] Legionella sp identified Org specific cx Nom (Unsp spec)on 09-11-2023 Bacteria identified Cx Nom (Unsp spec) NO GROWTH DAY 7 OF 7 [facility] MAGNESIUMon 09-11-2023 Interpretation and review of laboratory results Normal [facility] Magnesium [Mass/Vol] 1.6 mg/dL 1.6 - 2 .6 mg/dL [facility] No Panel Informationon 09-11 [facility] TACROLIMUS LEVEL, TROUGH (SC E DRUG LEVEL)on 09-11-2023 Interpretation and review of laboratory results Normal [facility] Tacrolimus (Bld) [Mass/Vol] 11.5 ng/mL [facility] CBC,PLATELETSon 09-10-2023 Erythrocyte distribution width (RBC) [Ratio] 13.9 % 10.9 - 14.3 % [facility] Hematocrit (Bld) [Volume fraction] 40.0 % 39.6 - 48.8 % [facility] Hemoglobin (Bld) [Mass/Vol] 12.7 g/dL Low 13.4 - 16.8 g/dL [facility] Interpretation and review of laboratory results Abnormal [facility] MCH (RBC) [Entitic mass] 27.3 pg 26.1 - 33.3 pg [facility] MCHC (RBC) [Mass/Vol] 31.8 g/dL Low 31.9 - 36.5 g/dL [facility] MCV (RBC) [Entitic vol] 86.0 fL 79.0 - 94.5 fL [facility] Platelet mean volume (Bld) [Entitic vol] 9.5 fL 8.7 - 12.3 fL [facility] Platelets (Bld) [#/Vol] 225 10*3/uL 146 - 337 K/uL [facility] RBC (Bld) [#/Vol] 4.65 10*6/uL [facility] WBC (Bld) [#/Vol] 6.52 10*3/uL 3.73 - 10. 10 K/uL [facility] CHEM 7 (LYTES,BUN,CREA,GLUC) on 09-10-2023 Anion gap [Moles/Vol] 13 mmol/L 7 - 17 mmol/L [facility] Chloride [Moles/Vol] 111 mmol/L High 98 - 10 8 mmol/L [facility] CO2 [Moles/Vol] 20 mmol/L Low 21 - 31 mmol/L [facility] Creatinine [Mass/Vol] 1.27 mg/dL 0.70 - 1.30 mg/dL [facility] eGFR, CKD-EPI, Male 68 - PINF [facility] Glucose [Mass/Vol] 100 mg/dL High 70 - 99 mg/dL [facility] Osmolality Calc [Osmolality] 293 [facility] Potassium [Moles/Vol] 4.4 mmol/L 3.5 - 5.0 mmol/L [facility] Sodium [Moles/Vol] 140 mmol/L 135 - 145 mmol/L [facility] Urea nitrogen [Mass/Vol] 12 mg/dL 7 - 25 mg/dL [facility] Urea nitrogen/Creatinine [Mass ratio] 9 mg/mg [facility] HEPATIC FUNCTION PANELon Albumin [Mass/Vol] 3.3 g/dL Low 3.5 - 5.0 g/dL [facility] ALP [Catalytic activity/Vol] 143 U/L High 32 - 126 U/L [facility] ALT [Catalytic activity/Vol] 28 U/L 10 - 52 U/L [facility] AST [Catalytic activity/Vol] 29 U/L 10 - 39 U/L [facility] Bilirubin [Mass/Vol] 0.9 mg/dL NINF - 1.5 mg/dL [facility] Bilirubin.direct [Mass/Vol] 0.2 mg/dL NINF - 0.3 mg/dL [facility] Protein [Mass/Vol] 6.8 g/dL 6.4 - 8.3 g/dL [facility] MAGNESIUMon 09-10-2023 Interpretation and review of laboratory results Normal [facility] Magnesium [Mass/Vol] 1.9 mg/dL 1.6 - 2 .6 mg/dL [facility] No Panel Informationon 09-10 Interpretation and review of laboratory results Abnormal [facility] TACROLIMUS LEVEL, TROUGH (SC E DRUG LEVEL)Ordered By: Jimy Castillo on 09-10-2023 Interpretation and review of laboratory results Normal [facility] Tacrolimus (Bld) [Mass/Vol] 11.8 ng/mL [facility] CHEM 7 (LYTES,BUN,CREA,GLUC) on 09-09-2023 Anion gap [Moles/Vol] 14 mmol/L 7 - 17 mmol/L [facility] Chloride [Moles/Vol] 113 mmol/L High 98 - 10 8 mmol/L [facility] CO2 [Moles/Vol] 18 mmol/L Low 21 - 31 mmol/L [facility] Creatinine [Mass/Vol] 1.03 mg/dL 0.70 - 1.30 mg/dL [facility] eGFR, CKD-EPI, Male 87 - PINF [facility] Glucose [Mass/Vol] 106 mg/dL High 70 - 99 mg/dL [facility] Interpretation and review of laboratory results Abnormal [facility] Osmolality Calc [Osmolality] 294 [facility] Potassium [Moles/Vol] 4.0 mmol/L 3.5 - 5.0 mmol/L [facility] Sodium [Moles/Vol] 141 mmol/L 135 - 145 mmol/L [facility] Urea nitrogen [Mass/Vol] 10 mg/dL 7 - 25 mg/dL [facility] Urea nitrogen/Creatinine [Mass ratio] 10 mg/mg [facility] MAGNESIUMon 09-09-2023 Magnesium [Mass/Vol] 1.6 mg/dL 1.6 - 2 .6 mg/dL [facility] No Panel Informationon 09-09 Interpretation and review of laboratory results Normal [facility] PHOSPHATE, INORGANICon 09-09 Phosphate [Mass/Vol] 3.8 mg/dL 2.2 - 4 .6 mg/dL [facility] TACROLIMUS LEVEL, TROUGH (SC E DRUG LEVEL)on 09-09-2023 Interpretation and review of laboratory results Normal [facility] Tacrolimus (Bld) [Mass/Vol] 9.2 ng/mL [facility] CBC,PLATELETSon 09-08-2023 Erythrocyte distribution width (RBC) [Ratio] 13.6 % 10.9 - 14.3 % [facility] Hematocrit (Bld) [Volume fraction] 36.1 % Low 39.6 - 48.8 % [facility] Hemoglobin (Bld) [Mass/Vol] 11.6 g/dL Low 13.4 - 16.8 g/dL [facility] Interpretation and review of laboratory results Abnormal [facility] MCH (RBC) [Entitic mass] 27.4 pg 26.1 - 33.3 pg [facility] MCHC (RBC) [Mass/Vol] 32.1 g/dL 31.9 - 36.5 g/dL [facility] MCV (RBC) [Entitic vol] 85.1 fL 79.0 - 94.5 fL [facility] Platelet mean volume (Bld) [Entitic vol] 9.5 fL 8.7 - 12.3 fL [facility] Platelets (Bld) [#/Vol] 182 10*3/uL 146 - 337 K/uL [facility] RBC (Bld) [#/Vol] 4.24 10*6/uL Low [facility] WBC (Bld) [#/Vol] 4.59 10*3/uL 3.73 - 10. 10 K/uL [facility] CHEM 7 (LYTES,BUN,CREA,GLUC) on 09-08-2023 Anion gap [Moles/Vol] 12 mmol/L 7 - 17 mmol/L [facility] Chloride [Moles/Vol] 113 mmol/L High 98 - 10 8 mmol/L [facility] CO2 [Moles/Vol] 21 mmol/L 21 - 31 mmol/L [facility] Creatinine [Mass/Vol] 1.14 mg/dL 0.70 - 1.30 mg/dL [facility] eGFR, CKD-EPI, Male 78 - PINF [facility] Glucose [Mass/Vol] 107 mg/dL High 70 - 99 mg/dL [facility] Osmolality Calc [Osmolality] [facility] Potassium [Moles/Vol] 3.9 mmol/L 3.5 - 5.0 mmol/L [facility] Sodium [Moles/Vol] 142 mmol/L 135 - 145 mmol/L [facility] Urea nitrogen [Mass/Vol] 11 mg/dL 7 - 25 mg/dL [facility] Urea nitrogen/Creatinine [Mass ratio] 10 mg/mg [facility] HEPATIC FUNCTION PANELon Albumin [Mass/Vol] 2.9 g/dL Low 3.5 - 5.0 g/dL [facility] ALP [Catalytic activity/Vol] 133 U/L High 32 - 126 U/L [facility] ALT [Catalytic activity/Vol] 23 U/L 10 - 52 U/L [facility] AST [Catalytic activity/Vol] 23 U/L 10 - 39 U/L [facility] Bilirubin [Mass/Vol] 0.8 mg/dL NINF - 1.5 mg/dL [facility] Bilirubin.direct [Mass/Vol] 0.2 mg/dL NINF - 0.3 mg/dL [facility] Protein [Mass/Vol] 5.9 g/dL Low 6.4 - 8.3 g/dL [facility] MAGNESIUMon 09-08-2023 Interpretation and review of laboratory results Normal [facility] Magnesium [Mass/Vol] 1.8 mg/dL 1.6 - 2 .6 mg/dL [facility] No Panel Informationon 09-08 Interpretation and review of laboratory results Abnormal [facility] PHOSPHATE, INORGANICon 09-08 Interpretation and review of laboratory results Normal [facility] Phosphate [Mass/Vol] 4.1 mg/dL 2.2 - 4 .6 mg/dL [facility] TACROLIMUS LEVEL, TROUGH (SC E DRUG LEVEL)on 09-08-2023 Interpretation and review of laboratory results Normal [facility] Tacrolimus (Bld) [Mass/Vol] 8.5 ng/mL [facility] CBC,PLATELETSon 09-07-2023 Erythrocyte distribution width (RBC) [Ratio] 13.5 % 10.9 - 14.3 % [facility] Hematocrit (Bld) [Volume fraction] 37.1 % Low 39.6 - 48.8 % [facility] Hemoglobin (Bld) [Mass/Vol] 11.9 g/dL Low 13.4 - 16.8 g/dL [facility] Interpretation and review of laboratory results Abnormal [facility] MCH (RBC) [Entitic mass] 27.7 pg 26.1 - 33.3 pg [facility] MCHC (RBC) [Mass/Vol] 32.1 g/dL 31.9 - 36.5 g/dL [facility] MCV (RBC) [Entitic vol] 86.5 fL 79.0 - 94.5 fL [facility] Platelet mean volume (Bld) [Entitic vol] 9.6 fL 8.7 - 12.3 fL [facility] Platelets (Bld) [#/Vol] 176 10*3/uL 146 - 337 K/uL [facility] RBC (Bld) [#/Vol] 4.29 10*6/uL Low [facility] WBC (Bld) [#/Vol] 4.10 10*3/uL 3.73 - 10. 10 K/uL [facility] CHEM 7 (LYTES,BUN,CREA,GLUC) on 09-07-2023 Anion gap [Moles/Vol] 13 mmol/L 7 - 17 mmol/L [facility] Chloride [Moles/Vol] 113 mmol/L High 98 - 10 8 mmol/L [facility] CO2 [Moles/Vol] 19 mmol/L Low 21 - 31 mmol/L [facility] Creatinine [Mass/Vol] 1.22 mg/dL 0.70 - 1.30 mg/dL [facility] eGFR, CKD-EPI, Male 72 - PINF [facility] Glucose [Mass/Vol] 107 mg/dL High 70 - 99 mg/dL [facility] Osmolality Calc [Osmolality] 295 [facility] Potassium [Moles/Vol] 3.9 mmol/L 3.5 - 5.0 mmol/L [facility] Sodium [Moles/Vol] 141 mmol/L 135 - 145 mmol/L [facility] Urea nitrogen [Mass/Vol] 13 mg/dL 7 - 25 mg/dL [facility] Urea nitrogen/Creatinine [Mass ratio] 11 mg/mg [facility] HEPATIC FUNCTION PANELon Albumin [Mass/Vol] 2.9 g/dL Low 3.5 - 5.0 g/dL [facility] ALP [Catalytic activity/Vol] 111 U/L 32 - 126 U/L [facility] ALT [Catalytic activity/Vol] 18 U/L 10 - 52 U/L [facility] AST [Catalytic activity/Vol] 23 U/L 10 - 39 U/L [facility] Bilirubin [Mass/Vol] 0.8 mg/dL NINF - 1.5 mg/dL [facility] Bilirubin.direct [Mass/Vol] 0.3 mg/dL High NINF - 0.3 mg/dL [facility] Protein [Mass/Vol] 6.0 g/dL Low 6.4 - 8.3 g/dL [facility] MAGNESIUMon 09-07-2023 Interpretation and review of laboratory results Normal [facility] Magnesium [Mass/Vol] 1.7 mg/dL 1.6 - 2 .6 mg/dL [facility] No Panel Informationon 09-07 Interpretation and review of laboratory results Abnormal [facility] PHOSPHATE, INORGANICon 09-07 Interpretation and review of laboratory results Normal [facility] Phosphate [Mass/Vol] 4.4 mg/dL 2.2 - 4 .6 mg/dL [facility] TACROLIMUS LEVEL, TROUGH (SC E DRUG LEVEL)Ordered By: Elizabeth Maldonado on 09-07-2023 Interpretation and review of laboratory results Normal [facility] Tacrolimus (Bld) [Mass/Vol] 7.8 ng/mL [facility] CBC,PLATELETSon 09-06-2023 Erythrocyte distribution width (RBC) [Ratio] 13.4 % 10.9 - 14.3 % [facility] Hematocrit (Bld) [Volume fraction] 38.4 % Low 39.6 - 48.8 % [facility] Hemoglobin (Bld) [Mass/Vol] 11.9 g/dL Low 13.4 - 16.8 g/dL [facility] Interpretation and review of laboratory results Abnormal [facility] MCH (RBC) [Entitic mass] 26.6 pg 26.1 - 33.3 pg [facility] MCHC (RBC) [Mass/Vol] 31.0 g/dL Low 31.9 - 36.5 g/dL [facility] MCV (RBC) [Entitic vol] 85.9 fL 79.0 - 94.5 fL [facility] Platelet mean volume (Bld) [Entitic vol] 9.7 fL 8.7 - 12.3 fL [facility] Platelets (Bld) [#/Vol] 181 10*3/uL 146 - 337 K/uL [facility] RBC (Bld) [#/Vol] 4.47 10*6/uL [facility] WBC (Bld) [#/Vol] 4.41 10*3/uL 3.73 - 10. 10 K/uL [facility] CHEM 7 (LYTES,BUN,CREA,GLUC) on 09-06-2023 Anion gap [Moles/Vol] 14 mmol/L 7 - 17 mmol/L [facility] Chloride [Moles/Vol] 109 mmol/L High 98 - 10 8 mmol/L [facility] CO2 [Moles/Vol] 19 mmol/L Low 21 - 31 mmol/L [facility] Creatinine [Mass/Vol] 1.26 mg/dL 0.70 - 1.30 mg/dL [facility] eGFR, CKD-EPI, Male 70 - PINF [facility] Glucose [Mass/Vol] 114 mg/dL High 70 - 99 mg/dL [facility] Osmolality Calc [Osmolality] 291 [facility] Potassium [Moles/Vol] 4.1 mmol/L 3.5 - 5.0 mmol/L [facility] Sodium [Moles/Vol] 138 mmol/L 135 - 145 mmol/L [facility] Urea nitrogen [Mass/Vol] 16 mg/dL 7 - 25 mg/dL [facility] Urea nitrogen/Creatinine [Mass ratio] 13 mg/mg [facility] HEPATIC FUNCTION PANELon Albumin [Mass/Vol] 3.0 g/dL Low 3.5 - 5.0 g/dL [facility] ALP [Catalytic activity/Vol] 115 U/L 32 - 126 U/L [facility] ALT [Catalytic activity/Vol] 25 U/L 10 - 52 U/L [facility] AST [Catalytic activity/Vol] 31 U/L 10 - 39 U/L [facility] Bilirubin [Mass/Vol] 1.0 mg/dL NINF - 1.5 mg/dL [facility] Bilirubin.direct [Mass/Vol] 0.3 mg/dL High NINF - 0.3 mg/dL [facility] Protein [Mass/Vol] 6.3 g/dL Low 6.4 - 8.3 g/dL [facility] MAGNESIUMon 09-06-2023 Interpretation and review of laboratory results Normal [facility] Magnesium [Mass/Vol] 2.0 mg/dL 1.6 - 2 .6 mg/dL [facility] No Panel Informationon 09-06 Interpretation and review of laboratory results Abnormal [facility] TACROLIMUS LEVEL, TROUGH (SC E DRUG LEVEL)on 09-06-2023 Interpretation and review of laboratory results Normal [facility] Tacrolimus (Bld) [Mass/Vol] 6.7 ng/mL [facility] CBC,PLATELETSon 09-05-2023 Erythrocyte distribution width (RBC) [Ratio] 13.5 % 10.9 - 14.3 % [facility] Hematocrit (Bld) [Volume fraction] 35.6 % Low 39.6 - 48.8 % [facility] Hemoglobin (Bld) [Mass/Vol] 11.4 g/dL Low 13.4 - 16.8 g/dL [facility] Interpretation and review of laboratory results Abnormal [facility] MCH (RBC) [Entitic mass] 27.5 pg 26.1 - 33.3 pg [facility] MCHC (RBC) [Mass/Vol] 32.0 g/dL 31.9 - 36.5 g/dL [facility] MCV (RBC) [Entitic vol] 86.0 fL 79.0 - 94.5 fL [facility] Platelet mean volume (Bld) [Entitic vol] 10.0 fL 8.7 - 12.3 fL [facility] Platelets (Bld) [#/Vol] 170 10*3/uL 146 - 337 K/uL [facility] RBC (Bld) [#/Vol] 4.14 10*6/uL Low [facility] WBC (Bld) [#/Vol] 4.24 10*3/uL 3.73 - 10. 10 K/uL [facility] CHEM 7 (LYTES,BUN,CREA,GLUC) on 09-05-2023 Anion gap [Moles/Vol] 12 mmol/L 7 - 17 mmol/L [facility] Chloride [Moles/Vol] 107 mmol/L 98 - 10 8 mmol/L [facility] CO2 [Moles/Vol] 20 mmol/L Low 21 - 31 mmol/L [facility] Creatinine [Mass/Vol] 1.43 mg/dL High 0.70 - 1.30 mg/dL [facility] eGFR, CKD-EPI, Male 60 Low - PINF [facility] Glucose [Mass/Vol] 111 mg/dL High 70 - 99 mg/dL [facility] Osmolality Calc [Osmolality] [facility] Potassium [Moles/Vol] 4.2 mmol/L 3.5 - 5.0 mmol/L [facility] Sodium [Moles/Vol] 135 mmol/L 135 - 145 mmol/L [facility] Urea nitrogen [Mass/Vol] 18 mg/dL 7 - 25 mg/[facility] Urea nitrogen/Creatinine [Mass ratio] 13 mg/mg [facility] CONTINUOUS CARDIAC MONITORIN G STRIPon 09-05-2023 [facility] HEPATIC FUNCTION PANELon Albumin [Mass/Vol] 2.8 g/dL Low 3.5 - 5.0 g/dL [facility] ALP [Catalytic activity/Vol] 103 U/L 32 - 126 U/L [facility] ALT [Catalytic activity/Vol] 26 U/L 10 - 52 U/L [facility] AST [Catalytic activity/Vol] 38 U/L 10 - 39 U/L [facility] Bilirubin [Mass/Vol] 0.9 mg/dL NINF - 1.5 mg/dL [facility] Bilirubin.direct [Mass/Vol] 0.1 mg/dL NINF - 0.3 mg/dL [facility] Protein [Mass/Vol] 6.1 g/dL Low 6.4 - 8.3 g/dL [facility] HISTOPLASMA ANTIGEN, FLUIDon 09-05-2023 FH SOURCE BAL RML [facility] Histo FLD interpretation Negative [facility] Histoplasma Antigen, FLUID Not detected ng/mL [facility] HISTOPLASMA CAPSULATUM/BLAST OMYCES SPECIES,PCR FLUIDon 09-05-2023 HISTO/BLASTO RESULT Negative Not Applicable [facility] Specimen source Nom (Unsp spec) BAL RML [facility] IMMUNOPHENOTYPING, TISSUE/FL UIDon 09-05-2023 BKR DX CODE Use Ordering [facility] Flow Interpretation See Comment [facility] Flow Interpreted by: Yossi Perla MD, PhD [facility] MAGNESIUMon 09-05-2023 Interpretation and review of laboratory results Normal [facility] Magnesium [Mass/Vol] 1.7 mg/dL 1.6 - 2 .6 mg/dL [facility] No Panel Informationon 09-05 Interpretation and review of laboratory results Abnormal [facility] TACROLIMUS LEVEL, TROUGH (SC E DRUG LEVEL)Ordered By: Raymundo Mehta on 09-05-2023 Interpretation and review of laboratory results Normal [facility] Tacrolimus (Bld) [Mass/Vol] 5.3 ng/mL [facility] ARTERIAL BLOOD GAS (FULL GOSS EL)on 09-04-2023 Base excess Calc (Bld) [Moles/Vol] -1.2000 mmol/L -3.0 - 3.0 mmol/L [facility] Calcium.ionized (Bld) [Mass/Vol] 4.79 mg/dL 4.60 - 5.30 mg/dL [facility] Carboxyhemoglobin (Bld) [Mass fraction] 0.7 % NINF - 1.5 % [facility] CO2 (Bld) [Partial pressure] 30 mm[Hg] Low [facility] Glucose [Mass/Vol] 159 mg/dL High 70 - 99 mg/dL [facility] HCO3 (Bld) [Moles/Vol] 22 mmol/L 22 - 28 mmol/L [facility] Hematocrit (Bld) [Volume fraction] 38.0 % Low 40.2 - 50.4 % [facility] Hemoglobin (Bld) [Mass/Vol] 12.6 g/dL Low 13.4 - 16.8 g/dL [facility] Interpretation and review of laboratory results Abnormal [facility] Lactate [Moles/Vol] 2.0 mmol/L High 0.5 - 1. 6 mmol/L [facility] Methemoglobin (Bld) [Mass fraction] 0.0 % NINF - 1.5 % [facility] Oxygen (Bld) [Partial pressure] 62 mm[Hg] Low [facility] Oxygen saturation in Blood 92 % Low 94 - 98 % [facility] Oxyhemoglobin 91 % Low 94 - 98 % [facility] pH (Bld) 7.48 [pH] High 7.35 - 7.45 [facility] Potassium [Moles/Vol] 4.2 mmol/L 3.5 - 5.0 mmol/L [facility] Sodium [Moles/Vol] 130 mmol/L Low 135 - 145 mmol/L [facility] Specimen source Nom (Unsp spec) Arterial [facility] Bacteria identified Respirat ory culture Nom (Unsp spec)on 09-04-2023 Bacteria identified Cx Nom (Unsp spec) NO GROWTH DAY 2 OF 2 [facility] Microscopic observation Other stain Nom (Unsp spec) Cytocentrifuge preparation [facility] Microscopic observation Other stain Nom (Unsp spec) Neutrophils, Rare [facility] Microscopic observation Other stain Nom (Unsp spec) Red Blood Cells Present [facility] Microscopic observation Other stain Nom (Unsp spec) No organisms seen [facility] Bacteria identified Respirat ory culture Nom (Unsp spec)Ordered By: Jose Salagdo on 09-04-2023 Bacteria identified Cx Nom (Unsp spec) NO GROWTH DAY 2 OF 2 [facility] Microscopic observation Other stain Nom (Unsp spec) Cytocentrifuge preparation [facility] Microscopic observation Other stain Nom (Unsp spec) Neutrophils, Moderate [facility] Microscopic observation Other stain Nom (Unsp spec) Red Blood Cells Present [facility] Microscopic observation Other stain Nom (Unsp spec) No organisms seen [facility] CBC,PLATELETSon 09-04-2023 Erythrocyte distribution width (RBC) [Ratio] 13.2 % 10.9 - 14.3 % [facility] Hematocrit (Bld) [Volume fraction] 38.7 % Low 39.6 - 48.8 % [facility] Hemoglobin (Bld) [Mass/Vol] 12.3 g/dL Low 13.4 - 16.8 g/dL [facility] Interpretation and review of laboratory results Abnormal [facility] MCH (RBC) [Entitic mass] 27.9 pg 26.1 - 33.3 pg [facility] MCHC (RBC) [Mass/Vol] 31.8 g/dL Low 31.9 - 36.5 g/dL [facility] MCV (RBC) [Entitic vol] 87.8 fL 79.0 - 94.5 fL [facility] Platelet mean volume (Bld) [Entitic vol] 9.8 fL 8.7 - 12.3 fL [facility] Platelets (Bld) [#/Vol] 173 10*3/uL 146 - 337 K/uL [facility] RBC (Bld) [#/Vol] 4.41 10*6/uL [facility] WBC (Bld) [#/Vol] 4.57 10*3/uL 3.73 - 10. 10 K/uL [facility] CHEM 7 (LYTES,BUN,CREA,GLUC) on 09-04-2023 Anion gap [Moles/Vol] 16 mmol/L 7 - 17 mmol/L [facility] Chloride [Moles/Vol] 104 mmol/L 98 - 10 8 mmol/L [facility] CO2 [Moles/Vol] 18 mmol/L Low 21 - 31 mmol/L [facility] Creatinine [Mass/Vol] 1.22 mg/dL 0.70 - 1.30 mg/dL [facility] eGFR, CKD-EPI, Male 72 - PINF [facility] Glucose [Mass/Vol] 124 mg/dL High 70 - 99 mg/dL [facility] Osmolality Calc [Osmolality] 284 [facility] Potassium [Moles/Vol] 3.9 mmol/L 3.5 - 5.0 mmol/L [facility] Sodium [Moles/Vol] 134 mmol/L Low 135 - 145 mmol/L [facility] Urea nitrogen [Mass/Vol] 15 mg/dL 7 - 25 mg/dL [facility] Urea nitrogen/Creatinine [Mass ratio] 12 mg/mg [facility] CMV PCR,FLUIDS,URINE,EYE ETC on 09-04-2023 Specimen source Nom (Unsp spec) BAL LLL [facility] Specimen source Nom (Unsp spec) BAL RML [facility] HEPATIC FUNCTION PANELon Albumin [Mass/Vol] 3.0 g/dL Low 3.5 - 5.0 g/dL [facility] ALP [Catalytic activity/Vol] 112 U/L 32 - 126 U/L [facility] ALT [Catalytic activity/Vol] 22 U/L 10 - 52 U/L [facility] AST [Catalytic activity/Vol] 30 U/L 10 - 39 U/L [facility] Bilirubin [Mass/Vol] 1.2 mg/dL NINF - 1.5 mg/dL [facility] Bilirubin.direct [Mass/Vol] 0.4 mg/dL High NINF - 0.3 mg/dL [facility] Protein [Mass/Vol] 6.4 g/dL 6.4 - 8.3 g/dL [facility] LEGIONELLA PCRon 09-04-2023 Legionella sp rRNA Probe Ql (Unsp spec) Negative Not Applicable [facility] Specimen source Nom (Unsp spec) BAL RML [facility] Laboratory - Microbiology an d Antimicrobial susceptibilityon 09-04-2023 CMV DNA ESTELITA+probe Ql (Unsp spec) Negative Negative [facility] MAGNESIUMon 09-04-2023 Magnesium [Mass/Vol] 1.4 mg/dL Low 1.6 - 2 .6 mg/dL [facility] No Panel Informationon 09-04 Annotation comment [Interpretation] Narrative DNR [facility] PN Report Status DNR [facility] Pneumocystis jiroveci,PCR result Negative Not Applicable [facility] Interpretation and review of laboratory results Abnormal [facility] PNEUMOCYSTIS JIROVECI,PCRon 09-04-2023 Specimen source Nom (Unsp spec) BAL LLL [facility] Specimen source Nom (Unsp spec) BAL RML [facility] Portable XR Chest Viewson RADIOLOGY RADIOLOGY [facility] Radiology Study observation (narrative) [facility] Portable XR Chest ViewsOrder ed By: Joanie Nugent on 09-04-2023 [facility] Work Phone: TACROLIMUS LEVEL, TROUGH (SC E DRUG LEVEL)on 09-04-2023 Interpretation and review of laboratory results Abnormal [facility] Tacrolimus (Bld) [Mass/Vol] 3.6 ng/mL Low [facility] ASPERGILLUS ANTIGEN, BALon 1 Galactomannan Ag IA Qn (Unsp spec) [facility] Galactomannan Ag IA Qn (Unsp spec) [facility] BAL CONSULTOrdered By: Noa Peralta on 09-03-2023 ALVEOLAR MACROPHAGES 32 % [facility] Work Phone: Bal comments Correlation with microbiology stains and cultures is recommended. [facility] Work Phone: Bal Diff Quik Stain Quality Check Acceptable [facility] Work Phone: BKR BAL INTERPRETATION Cellular specimen comprised of alveolar macrophages and small lymphocytes. No definitive microorganisms are observed. Moderate degenerative changes. [facility] Work Phone: BKR DX CODE Use Ordering [facility] Work Phone: Eosinophils Patterson stain Ql (Unsp spec) 0 % [facility] Work Phone: Lymphocytes/100 WBC (Bld) 57 % [facility] Work Phone: Neutrophils/100 WBC Manual cnt (Bronch spec) 11 % [facility] Work Phone: Pathologist review Jame (Unsp spec) [Interp] Leonardo Peralta MD [facility] Work Phone: [facility] Work Phone: BAL CONSULTon 09-03-2023 ALVEOLAR MACROPHAGES 33 % [facility] Bal comments Correlation with microbiology stains and cultures is recommended. Correlation with viral studies is recommended. [facility] Bal Diff Quik Stain Quality Check Acceptable [facility] BKR BAL INTERPRETATION Cellular specimen comprised of alveolar macrophages and small lymphocytes. No definitive microorganisms are observed. Rare degenerating cells with changes suggestive of viral cytopathic effect are noted. Moderate degenerative changes. [facility] BKR DX CODE Use Ordering [facility] Eosinophils Patterson stain Ql (Unsp spec) 0 % [facility] Lymphocytes/100 WBC (Bld) 49 % [facility] Neutrophils/100 WBC Manual cnt (Bronch spec) 18 % [facility] Pathologist review Jame (Unsp spec) [Interp] Leonardo Peralta MD [facility] BRONCHOSCOPYon 09-03-2023 LAB, [facility] CBC,PLATELETSon 09-03-2023 Erythrocyte distribution width (RBC) [Ratio] 13.4 % 10.9 - 14.3 % [facility] Hematocrit (Bld) [Volume fraction] 39.6 % 39.6 - 48.8 % [facility] Hemoglobin (Bld) [Mass/Vol] 12.8 g/dL Low 13.4 - 16.8 g/dL [facility] Interpretation and review of laboratory results Abnormal [facility] MCH (RBC) [Entitic mass] 27.8 pg 26.1 - 33.3 pg [facility] MCHC (RBC) [Mass/Vol] 32.3 g/dL 31.9 - 36.5 g/dL [facility] MCV (RBC) [Entitic vol] 85.9 fL 79.0 - 94.5 fL [facility] Platelet mean volume (Bld) [Entitic vol] 9.4 fL 8.7 - 12.3 fL [facility] Platelets (Bld) [#/Vol] 222 10*3/uL 146 - 337 K/uL [facility] RBC (Bld) [#/Vol] 4.61 10*6/uL [facility] WBC (Bld) [#/Vol] 4.36 10*3/uL 3.73 - 10. 10 [facility] CHEM 7 (LYTES,BUN,CREA,GLUC) on 09-03-2023 Anion gap [Moles/Vol] 12 mmol/L 7 - 17 mmol/L [facility] Chloride [Moles/Vol] 104 mmol/L 98 - 10 8 mmol/L [facility] CO2 [Moles/Vol] 24 mmol/L 21 - 31 mmol/L [facility] Creatinine [Mass/Vol] 1.20 mg/dL 0.70 - 1.30 mg/dL [facility] eGFR, CKD-EPI, [facility] 73 - [facility] Gl[facility] [Mass/Vol] 112 mg/dL High 70 - 99 mg/dL [facility] Osmolality Calc [Osmolality] 288 [facility] Potassium [Moles/Vol] 4.1 mmol/L 3.5 - 5.0 mmol/L [facility] Sodium [Moles/Vol] 136 mmol/L 135 - 145 mmol/L [facility] Urea nitrogen [Mass/Vol] 17 mg/dL 7 - 25 mg/dL [facility] Urea nitrogen/Creatinine [Mass ratio] 14 mg/mg [facility] CYTOLOGY, NON-GYNOrdered By: Sherice Jimenez on 09-03-2023 CYTOLOGIC DIAGNOSIS a8umgPUyTBDkhALyRAAxQ0yjqzA cWBAxsUGvO6JtqiqaOXzbKL0sLW 1qsFitbZGplHWsFKFjMxEiq2kwb 634gIDhm5etVMSNdiuyzMy9r1hn SLTHcV9qi2p6lP48IFRznR3qrEK pXDuhnqUbVUapidMpocOjOsy2BV S6eKatZcrcuRY1gZZwkZD3WVcac 7DbpPpzhYteZHI7RJBnPdchFLgm wLX3zWPxmYuylHZqMT7cn0jycUD 6isNpRPQ5rPjhjZZ8aUppupaxm7 cdaLU9vWM1JAiwdXE7VBqgWgQjO 4jdQOUgtA1sH41uB4ezOJSjfLwn BZyqNXThyZQ3ATI9PLGos1umZNU ujCBuxBAyXhIiZHhmOmq7h9npUV GyvP43dEGhqoO4qJzvALliiKP1W O03YVkdz6OzNCDyiMcwEVCjmY7u YzIzXGxldmVsbmZjbjIzXGxldmV kbqSbBWnciiVda2BfcrPkxSH4QK kpxiAllOA0nFmhDCWaT9N0B324O MhnpnMdqhWtVwLyilk0IHFgeEuz bGlzdGxldmVsXGxldmVsbmZjMjN tiPN8JArnRkEdObEjtBE2CLbgWc WivUO1UFyxhIKwpYG7DVtcbMZ7L Mv6TEq5HJnrSBiiWch4wWnngIP9 YWfwqJ0pIBMbL18bGxH1c8euuCH 7vFJ2QDsolNW6KHzgEjUkK8rbOA JttE3nN55aV7gbIJKsiQabMYqxQ HQawRE2AMB8KVVcl0agHJAtyULy eFQlGbKkLMcnAif7i5anFDRoeP7 2lXYcgeT6bOwkKN91CUspo1HtAO WlsYzbCJZzqF4sXyHqJGqkawNjt mZjbjIzXGxldmVsamMwXGxldmVs m6JbwkVlaPU9XDdsxpPykEV2bPs oHGOwY5I1L018HZfpxzDcqaKtDl Gyjtu6QNBqmCntyRwfyFyvpuGtM ZofuzZkoeJrVhFieWT6GOouZjWl EoWjtBT4AFguEkXoxSH0CJqpcJP omAC9WGqkfON2ZQi8FDy3NMypDC zwGiu2vFxbmNC6EDxpfQ9qDKUfO 16iYbT3f4mriGR0hCV9DZvweCY9 GSliMdDtN7qbHPTvjF8zR27nC1p aQCWsjDnnOOyiIHMxbES9EQZ0XY Dub9bvFOMkeUKgySGjHuEfRJpzZ dm4v7amHMAocG92xBWoloY5bNvb AH53XJcwf2MoWFKshYosXWCngN7 mYzIzXGxldmVsbmZjbjIzXGxldm DsmeBaYHbjuxQak6NeowNvhMG7F SkracHxcSK7jQznMSQxJ1N2E022 YLcaegKjnuYkJvQxgnm9CUEzoWg cbGlzdGxldmVsXGxldmVsbmZjMj HagEL3WMscXcXzCnAlrMN7OCdiS dFhuNB9JJmesSTeiUD4JWfumIJ8 KTo6BDe8FMjkIOasBqo0oQdbzON 5DTfxjQ9vDCJnP51cIfJ2fV28NV ruwCtsxB49PUDsfCSqgEVwyRB8P NewwPjebB00ZJIauLUoWDrji3Ve YJVnMaZ3EFR5CTFplPqzhM18QBD dwCWqC435dbDuCBhfAL43OPQvuJ GrecThAyJdMKBumAHynWN8CTLpX L6mnzdxZVtuNEizNEAikcU5YDEt dZRcV1WoVREiLN6kertbCPN4BPw bOYWrOOG9HaJuVNXof7Bqjhz2Gw BxlAf0d3wlXUOzTEExuNliy0ooW LS4ROAtbOYxU6dtoZ8aBZQeUU8o zjved3ocVJgpRIzbFAKsxVT7udV 2KDBppTEzY1XijB3wFJIkCHDjku FwrJlhpU4jIbstlmQbDIJnHSLGM cCVDg4CL7rRZQpMYK6TEGAwNPZG MVyYOYEBTKNRMDyTL1YGHCuQRfJ sCFTcIJRwK4jTT0dOW7kfVvrsSu SxMZpgNFKlFvHnW8QtZPOkqzidV SFvHLANKC1VWJYJIPLJNt4OXTY0 WTNrbkjlnWO7QYfjywMkxPe9aBG eaHnsaC3tUwhhtyVxDTDnALUHmc LXDGyjV88wegNrE7TqsEGzKNIoR JbdZV98sCLoVZOnnQZmZWi5qQ2b BEqliIabzkELcLUcnY8jqwjmHJu jZjBccGFyXGxpMFxsczBccGFyfQ == [facility] Work Phone: Case Report [facility] Work Phone: Clinical History t7dwfEUhUGYqyMDhORAo S1uytgF xSRWvfLQrR8GkzcjwSNrpDD7sRH 7nbNrelYSzuSJtNYDrEpLux8qye 407yQNuy5fcYHVDlcbonRe7jHmd N16kl4O0YdqcV0ptMZJrATlsASD iNJflmMGnLHe2ONEnzRXtobXkWz HvGNYatQBcpLF3ISAnRV0mphkuT SagRGuiOSQuzwR4IVFrxOMrB5Vy LLVtZF0bjxnxIFQ9KAikKEJoDOU 1SbFfJHDke4Wmvim7WgHeaMy9t6 niJZNsYLSujHirx6sdHYX4FXVgp FBhW6rciD2aQPWmHU4zqfrzf5dz IMojCNzpDWKvrCC8dcW3KHVhfNO zT0AuwC4mBGFpSVLuocPtaAuttL 5cZnMyMFxjZjEgUmVuYWwgdHJhb xZfpHConB0yHHEznr3= [facility] Work Phone: For Immediate Release to Patient's MyChart? Yes Yes [facility] Work Phone: Gross Description g5zfaLUrQUEgdRDuNVGn R7rcexK kGZAlxHHfV7LfhijfPQhsYI6kRN 8euTlszMXjqHNlJZFoWqDbi4mly 846rPFli9uuOAKKysglfVf4cKjv N63sn0D7StufB29idSVwWKP0YYN jBHKuoRHmMIFoAAI1XIGxuMBdY7 xaWRIwYS3cxoeyLAjsSSamOZFhu SJ3ZPBxxWJmY3MbRMCkYPyzBDAg ixm5NmHaLo1ekTHygQzxEXqwMJT kXHBsYWluXGZzMjAgTExMIEJBTF hyYAQaXVTykFGtKHu0CBDduD5cj YCnajKkbOKzdN1khVxiBXwzJOPs HYQUWLWkbKmlHPYEXUBlh2ShoA9 ccGFyXHBhcmRccGFyXHBhcn0= [facility] Work Phone: [facility] Work Phone: HEPATIC FUNCTION PANELon Albumin [Mass/Vol] 3.2 g/dL Low 3.5 - 5.0 g/dL [facility] ALP [Catalytic activity/Vol] 118 U/L 32 - 126 U/L [facility] ALT [Catalytic activity/Vol] 25 U/L 10 - 52 U/L [facility] AST [Catalytic activity/Vol] 32 U/L 10 - 39 U/L [facility] Bilirubin [Mass/Vol] 1.0 mg/dL NINF - 1.5 mg/dL [facility] Bilirubin.direct [Mass/Vol] 0.3 mg/dL High NINF - 0.3 mg/dL [facility] Protein [Mass/Vol] 6.5 g/dL 6.4 - 8.3 g/dL [facility] HISTOPLASMA AND BLASTOMYCES ANTIGEN, ENZYME IMMUNOASSAY, SERMon 09-03-2023 Histoplasma/Blastomy [place]ia Ag Result Detected Critically abnormal Not Detected [facility] Histoplasma/Blastomy [place] Ag Value 5.3 ng/mL [facility] Interpretation and review of laboratory results Abnormal [facility] MAGNESIUMon 09-03-2023 Interpretation and review of laboratory results Normal [facility] Magnesium [Mass/Vol] 1.6 mg/dL 1.6 - 2 .6 mg/dL [facility] No Panel Informationon 09-03 Interpretation and review of laboratory results Abnormal [facility] PARVOVIRUS (B19) DNA, PCR, [place] 09-03-2023 PARVOVIRUS B19 BY RAPID PCR Not detected Not Detected [facility] [place] SPEC SOURCE [facility] Portable XR Chest Viewson RADIOLOGY RADIOLOGY [facility] Radiology Study observation (narrative) [facility] Portable XR Chest ViewsOrder ed By: Lester Grove on 09-03-2023 [facility] Work Phone: ASPERGILLUS (GALACTOMANNAN), ANTIGENon 09-02-2023 Galactomannan Ag IA Qn <0.500 NINF [facility] ATYPICAL BACTERIAL PNEUMONIA ,PCROrdered By: Shari Contreras on 09-02-2023 B. parapertussis DNA ESTELITA+probe Ql (Unsp spec) Not detected Not Detected [facility] B. pertussis DNA ESTELITA+probe Ql (Unsp spec) Not detected Not Detected [facility] C. pneumoniae DNA ESTELITA+probe Ql (Unsp spec) Not detected Not Detected [facility] Interpretation and review of laboratory results Normal [facility] M. pneumoniae DNA ESTELITA+probe Ql (Unsp spec) Not detected Not Detected [facility] BRONCHOSCOPYon 09-02-2023 Radiology Study observation (narrative) [facility] Bacteria identified Cx Nom ( Bld)on 09-02-2023 Bacteria identified Cx Nom (Unsp spec) NO GROWTH DAY 5 OF 5 [facility] CBC,PLATELETSon 09-02-2023 Erythrocyte distribution width (RBC) [Ratio] 13.2 % 10.9 - 14.3 % [facility] Hematocrit (Bld) [Volume fraction] 39.9 % 39.6 - 48.8 % [facility] Hemoglobin (Bld) [Mass/Vol] 12.9 g/dL Low 13.4 - 16.8 g/dL [facility] Interpretation and review of laboratory results Abnormal [facility] MCH (RBC) [Entitic mass] 27.9 pg 26.1 - 33.3 pg [facility] MCHC (RBC) [Mass/Vol] 32.3 g/dL 31.9 - 36.5 g/dL [facility] MCV (RBC) [Entitic vol] 86.4 fL 79.0 - 94.5 fL [facility] Platelet mean volume (Bld) [Entitic vol] 9.5 fL 8.7 - 12.3 fL [facility] Platelets (Bld) [#/Vol] 210 10*3/uL 146 - 337 K/uL [facility] RBC (Bld) [#/Vol] 4.62 10*6/uL [facility] WBC (Bld) [#/Vol] 4.12 10*3/uL 3.73 - 10. 10 K/uL [facility] CHEM 7 (LYTES,BUN,CREA,GLUC) on 09-02-2023 Anion gap [Moles/Vol] 13 mmol/L 7 - 17 mmol/L [facility] Chloride [Moles/Vol] 105 mmol/L 98 - 10 8 mmol/L [facility] CO2 [Moles/Vol] 22 mmol/L 21 - 31 mmol/L [facility] Creatinine [Mass/Vol] 1.25 mg/dL 0.70 - 1.30 mg/dL [facility] eGFR, CKD-EPI, Male 69 - [facility] Glucose [Mass/Vol] 105 mg/dL High 70 - 99 mg/dL [facility] Osmolality Calc [Osmolality] [facility] Potassium [Moles/Vol] 4.3 mmol/L 3.5 - 5.0 mmol/L [facility] Sodium [Moles/Vol] 136 mmol/L 135 - 145 mmol/L [facility] Urea nitrogen [Mass/Vol] 16 mg/dL 7 - 25 mg/dL [facility] Urea nitrogen/Creatinine [Mass ratio] 13 mg/mg [facility] HEPATIC FUNCTION PANELon Albumin [Mass/Vol] 3.2 g/dL Low 3.5 - 5.0 g/dL [facility] ALP [Catalytic activity/Vol] 107 U/L 32 - 126 U/L [facility] ALT [Catalytic activity/Vol] 20 U/L 10 - 52 U/L [facility] AST [Catalytic activity/Vol] 31 U/L 10 - 39 U/L [facility] Bilirubin [Mass/Vol] 1.0 mg/dL NINF - 1.5 mg/dL [facility] Bilirubin.direct [Mass/Vol] 0.3 mg/dL High NINF - 0.3 mg/dL [facility] Protein [Mass/Vol] 6.6 g/dL 6.4 - 8.3 g/dL [facility] HISTOPLASMA ANTIGEN,URINEon 09-02-2023 H. capsulatum Ag (U) [Mass/Vol] Not detected ng/mL [facility] H. capsulatum Ag IA Ql (U) Not detected Not Detected [facility] HIV 1 AND 2 ANTIBODIES/P24 A NTIGENOrdered By: Wilma Luque on 09-02-2023 HIV 1+2 Ab+HIV1 p24 Ag IA Ql Non-Reactive Non Reactive [facility] Interpretation and review of laboratory results Normal [facility] MAGNESIUMon 09-02-2023 Interpretation and review of laboratory results Normal [facility] Magnesium [Mass/Vol] 1.7 mg/dL 1.6 - 2 .6 mg/dL [facility] No Panel Informationon 09-02 Interpretation and review of laboratory results Abnormal [facility] TACROLIMUS LEVEL, TROUGH (SC E DRUG LEVEL)on 09-02-2023 Interpretation and review of laboratory results Normal [facility] Tacrolimus (Bld) [Mass/Vol] 4.2 ng/mL [facility] CBC,PLATELETSon 09-01-2023 Erythrocyte distribution width (RBC) [Ratio] 13.4 % 10.9 - 14.3 % [facility] Hematocrit (Bld) [Volume fraction] 38.9 % Low 39.6 - 48.8 % [facility] Hemoglobin (Bld) [Mass/Vol] 12.7 g/dL Low 13.4 - 16.8 g/dL [facility] Interpretation and review of laboratory results Abnormal [facility] MCH (RBC) [Entitic mass] 27.6 pg 26.1 - 33.3 pg [facility] MCHC (RBC) [Mass/Vol] 32.6 g/dL 31.9 - 36.5 g/dL [facility] MCV (RBC) [Entitic vol] 84.6 fL 79.0 - 94.5 fL [facility] Platelet mean volume (Bld) [Entitic vol] 9.4 fL 8.7 - 12.3 fL [facility] Platelets (Bld) [#/Vol] 209 10*3/uL 146 - 337 K/uL [facility] RBC (Bld) [#/Vol] 4.60 10*6/uL [facility] WBC (Bld) [#/Vol] 4.41 10*3/uL 3.73 - 10. 10 K/uL [facility] CHEM 7 (LYTES,BUN,CREA,GLUC) on 09-01-2023 Anion gap [Moles/Vol] 14 mmol/L 7 - 17 mmol/L [facility] Chloride [Moles/Vol] 103 mmol/L 98 - 10 8 mmol/L [facility] CO2 [Moles/Vol] 21 mmol/L 21 - 31 mmol/L [facility] Creatinine [Mass/Vol] 1.16 mg/dL 0.70 - 1.30 mg/dL [facility] eGFR, CKD-EPI, Male 76 - PINF [facility] Glucose [Mass/Vol] 117 mg/dL High 70 - 99 mg/dL [facility] Osmolality Calc [Osmolality] 285 [facility] Potassium [Moles/Vol] 4.2 mmol/L 3.5 - 5.0 mmol/L [facility] Sodium [Moles/Vol] 134 mmol/L Low 135 - 145 mmol/L [facility] Urea nitrogen [Mass/Vol] 18 mg/dL 7 - 25 mg/dL [facility] Urea nitrogen/Creatinine [Mass ratio] 16 mg/mg [facility] CRYPTOCOCCAL ANTIGENon 09-01 Cryptococcus sp Ag Ql (S) Negative Negative [facility] Interpretation and review of laboratory results Normal [facility] HEPATIC FUNCTION PANELon Albumin [Mass/Vol] 3.3 g/dL Low 3.5 - 5.0 g/dL [facility] ALP [Catalytic activity/Vol] 112 U/L 32 - 126 U/L [facility] ALT [Catalytic activity/Vol] 21 U/L 10 - 52 U/L [facility] AST [Catalytic activity/Vol] 29 U/L 10 - 39 U/L [facility] Bilirubin [Mass/Vol] 1.0 mg/dL NINF - 1.5 mg/dL [facility] Bilirubin.direct [Mass/Vol] 0.2 mg/dL NINF - 0.3 mg/dL [facility] Protein [Mass/Vol] 6.8 g/dL 6.4 - 8.3 g/dL [facility] L. pneumophila 1 Ag IA Ql (U )Ordered By: Carolin Miles on 09-01-2023 Interpretation and review of laboratory results Normal [facility] LEGIONELLA URINARY AGOrdered By: Carolin Miles on 09-01-2023 L. pneumophila 1 Ag IA Ql (U) Negative Negative [facility] MAGNESIUMon 09-01-2023 Interpretation and review of laboratory results Normal [facility] Magnesium [Mass/Vol] 1.6 mg/dL 1.6 - 2 .6 mg/dL [facility] No Panel Informationon 09-01 Interpretation and review of laboratory results Abnormal [facility] CBC,PLATELETSon 08-31-2023 Erythrocyte distribution width (RBC) [Ratio] 13.3 % 10.9 - 14.3 % [facility] Hematocrit (Bld) [Volume fraction] 39.4 % Low 39.6 - 48.8 % [facility] Hemoglobin (Bld) [Mass/Vol] 12.8 g/dL Low 13.4 - 16.8 g/dL [facility] Interpretation and review of laboratory results Abnormal [facility] MCH (RBC) [Entitic mass] 27.6 pg 26.1 - 33.3 pg [facility] MCHC (RBC) [Mass/Vol] 32.5 g/dL 31.9 - 36.5 g/dL [facility] MCV (RBC) [Entitic vol] 85.1 fL 79.0 - 94.5 fL [facility] Platelet mean volume (Bld) [Entitic vol] 9.6 fL 8.7 - 12.3 fL [facility] Platelets (Bld) [#/Vol] 228 10*3/uL 146 - 337 K[facility]L [facility] RBC (Bld) [#/Vol] 4.63 10*6/uL [facility] WBC (Bld) [#/Vol] 4.77 10*3/uL 3.73 - 10. 10 [facility]L [facility]M 7 (LYTES,BUN,CREA,GLUC) on 08-31-2023 Anion gap [Moles/Vol] 13 mmol/L 7 - 17 mmol/L [facility] Chloride [Moles/Vol] 102 mmol/L 98 - 10 8 mmol/L [facility] CO2 [Moles/Vol] 23 mmol/L 21 - 31 mmol/L [facility] Creatinine [Mass/Vol] 1.37 mg/dL High 0.70 - 1.30 mg/dL [facility] eGFR, CKD-EPI, Male 62 - [facility] Glucose [Mass/Vol] 112 mg/dL High 70 - 99 mg/dL [facility] Osmolality Calc [Osmolality] 284 [facility] Potassium [Moles/Vol] 4.4 mmol/L 3.5 - 5.0 mmol/L [facility] Sodium [Moles/Vol] 134 mmol/L Low 135 - 145 mmol/L [facility] Urea nitrogen [Mass/Vol] 16 mg/dL 7 - 25 mg/dL [facility] Urea nitrogen/Creatinine [Mass ratio] 12 mg[facility] Abdomen and Pelvis WO con traston 08-31-2023 RADIOLOGY RADIOLOGY [facility] Radiology Study observation (narrative) [facility] CT Abdomen and Pelvis WO con trastOrdered By: Chavez Larkin on 08-31-2023 [facility] Work Phone: CT Chest WO contraston 08-31 [facility]OLOGY [facility]Y [facility] Study observation (narrative) [facility] CT Chest WO contrastOrdered By: Daisha Patterson on 08-31-2023 [facility] Work Phone: FERRITINon 08-31-2023 Ferritin [Mass/Vol] 409.0 ng/mL High 10.5 - 3 07.3 ng/mL [facility] Interpretation and review of laboratory results Abnormal [facility] HEPATIC FUNCTION PANELon Albumin [Mass/Vol] 3.3 g/dL Low 3.5 - 5.0 g/dL [facility] ALP [Catalytic activity/Vol] 113 U/L 32 - 126 U/L [facility] ALT [Catalytic activity/Vol] 25 U/L 10 - 52 U/L [facility] AST [Catalytic activity/Vol] 31 U/L 10 - 39 U/L [facility] Bilirubin [Mass/Vol] 1.1 mg/dL NINF - 1.5 mg/dL [facility] Bilirubin.direct [Mass/Vol] 0.3 mg/dL High NINF - 0.3 mg/dL [facility] Protein [Mass/Vol] 7.0 g/dL 6.4 - 8.3 g/dL [facility] MAGNESIUMon 08-31-2023 Interpretation and review of laboratory results Normal [facility] Magnesium [Mass/Vol] 1.7 mg/dL 1.6 - 2 .6 mg/dL [facility] No Panel Informationon 08-31 Interpretation and review of laboratory results Abnormal [facility] PROCALCITONINon 08-31-2023 Interpretation and review of laboratory results Normal [facility] Procalcitonin [Mass/Vol] 0.23 ng/mL NINF - 0.50 ng/mL [facility] TACROLIMUS LEVEL, TROUGH (SC E DRUG LEVEL)Ordered By: Yanira Marcum on 08-31-2023 Interpretation and review of laboratory results Normal [facility] Tacrolimus (Bld) [Mass/Vol] 5.9 ng/mL [facility] URINE CULTUREOrdered By: Jorge crowe Held on 08-31-2023 Bacteria identified Cx Nom (Unsp spec) No Growth [facility] DARYL AURIS SCREEN BY PCRO rdered By: Mynor Alejandro on 08-30-2023 Daryl auris Screen by PCR Not detected Not Detected [facility] Interpretation and review of laboratory results Normal [facility] CBC,PLATELETSon 08-30-2023 Erythrocyte distribution width (RBC) [Ratio] 13.3 % 10.9 - 14.3 % [facility] Hematocrit (Bld) [Volume fraction] 41.3 % 39.6 - 48.8 % [facility] Hemoglobin (Bld) [Mass/Vol] 13.2 g/dL Low 13.4 - 16.8 g/dL [facility] Interpretation and review of laboratory results Abnormal [facility] MCH (RBC) [Entitic mass] 27.3 pg 26.1 - 33.3 pg [facility] MCHC (RBC) [Mass/Vol] 32.0 g/dL 31.9 - 36.5 g/dL [facility] MCV (RBC) [Entitic vol] 85.5 fL 79.0 - 94.5 fL [facility] Platelet mean volume (Bld) [Entitic vol] 9.2 fL 8.7 - 12.3 fL [facility] Platelets (Bld) [#/Vol] 235 10*3/uL 146 - 337 K/uL [facility] RBC (Bld) [#/Vol] 4.83 10*6/uL [facility] WBC (Bld) [#/Vol] 4.96 10*3/uL 3.73 - 10. 10 K/uL [facility] CHEM 7 (LYTES,BUN,CREA,GLUC) on 08-30-2023 Anion gap [Moles/Vol] 14 mmol/L 7 - 17 mmol/L [facility] Chloride [Moles/Vol] 102 mmol/L 98 - 10 8 mmol/L [facility] CO2 [Moles/Vol] 20 mmol/L Low 21 - 31 mmol/L [facility] Creatinine [Mass/Vol] 1.56 mg/dL High 0.70 - 1.30 mg/dL [facility] eGFR, CKD-EPI, Male 54 Low - PINF [facility] Glucose [Mass/Vol] 123 mg/dL High 70 - 99 mg/dL [facility] Osmolality Calc [Osmolality] 281 [facility] Potassium [Moles/Vol] 4.3 mmol/L 3.5 - 5.0 mmol/L [facility] Sodium [Moles/Vol] 132 mmol/L Low 135 - 145 mmol/L [facility] Urea nitrogen [Mass/Vol] 16 mg/dL 7 - 25 mg/dL [facility] Urea nitrogen/Creatinine [Mass ratio] 10 mg/mg [facility] EXTRA MICROon 08-30-2023 [facility] HEPATIC FUNCTION PANELon Albumin [Mass/Vol] 3.7 g/dL 3.5 - 5.0 g/dL [facility] ALP [Catalytic activity/Vol] 115 U/L 32 - 126 U/L [facility] ALT [Catalytic activity/Vol] 22 U/L 10 - 52 U/L [facility] AST [Catalytic activity/Vol] 34 U/L 10 - 39 U/L [facility] Bilirubin [Mass/Vol] 1.2 mg/dL NINF - 1.5 mg/dL [facility] Bilirubin.direct [Mass/Vol] 0.3 mg/dL High NINF - 0.3 mg/dL [facility] Protein [Mass/Vol] 7.7 g/dL 6.4 - 8.3 g/dL [facility] MAGNESIUMon 08-30-2023 Interpretation and review of laboratory results Normal [facility] Magnesium [Mass/Vol] 1.8 mg/dL 1.6 - 2 .6 mg/dL [facility] No Panel Informationon 08-30 Interpretation and review of laboratory results Abnormal [facility] CBC,PLATELETSon 08-29-2023 Erythrocyte distribution width (RBC) [Ratio] 13.4 % 10.9 - 14.3 % [facility] Hematocrit (Bld) [Volume fraction] 37.6 % Low 39.6 - 48.8 % [facility] Hemoglobin (Bld) [Mass/Vol] 12.2 g/dL Low 13.4 - 16.8 g/dL [facility] Interpretation and review of laboratory results Abnormal [facility] MCH (RBC) [Entitic mass] 27.6 pg 26.1 - 33.3 pg [facility] MCHC (RBC) [Mass/Vol] 32.4 g/dL 31.9 - 36.5 g/dL [facility] MCV (RBC) [Entitic vol] 85.1 fL 79.0 - 94.5 fL [facility] Platelet mean volume (Bld) [Entitic vol] 9.4 fL 8.7 - 12.3 fL [facility] Platelets (Bld) [#/Vol] 233 10*3/uL 146 - 337 K/uL [facility] RBC (Bld) [#/Vol] 4.42 10*6/uL [facility] WBC (Bld) [#/Vol] 4.92 10*3/uL 3.73 - 10. 10 K/uL [facility] CHEM 7 (LYTES,BUN,CREA,GLUC) on 08-29-2023 Anion gap [Moles/Vol] 13 mmol/L 7 - 17 mmol/L [facility] Chloride [Moles/Vol] 105 mmol/L 98 - 10 8 mmol/L [facility] CO2 [Moles/Vol] 20 mmol/L Low 21 - 31 mmol/L [facility] Creatinine [Mass/Vol] 1.55 mg/dL High 0.70 - 1.30 mg/dL [facility] eGFR, CKD-EPI, Male 55 Low - PINF [facility] Glucose [Mass/Vol] 108 mg/dL High 70 - 99 mg/dL [facility] Osmolality Calc [Osmolality] 283 [facility] Potassium [Moles/Vol] 4.5 mmol/L 3.5 - 5.0 mmol/L [facility] Sodium [Moles/Vol] 133 mmol/L Low 135 - 145 mmol/L [facility] Urea nitrogen [Mass/Vol] 19 mg/dL 7 - 25 mg/dL [facility] Urea nitrogen/Creatinine [Mass ratio] 12 mg/mg [facility] GGTon 08-29-2023 Gamma glutamyl transferase [Catalytic activity/Vol] 64 U/L 8 - 64 U/L [facility] Interpretation and review of laboratory results Normal [facility] HEPATIC FUNCTION PANELon Albumin [Mass/Vol] 3.3 g/dL Low 3.5 - 5.0 g/dL [facility] ALP [Catalytic activity/Vol] 103 U/L 32 - 126 U/L [facility] ALT [Catalytic activity/Vol] 18 U/L 10 - 52 U/L [facility] AST [Catalytic activity/Vol] 27 U/L 10 - 39 U/L [facility] Bilirubin [Mass/Vol] 1.1 mg/dL NINF - 1.5 mg/dL [facility] Bilirubin.direct [Mass/Vol] 0.3 mg/dL High NINF - 0.3 mg/dL [facility] Protein [Mass/Vol] 6.8 g/dL 6.4 - 8.3 g/dL [facility] MAGNESIUMon 08-29-2023 Interpretation and review of laboratory results Normal [facility] Magnesium [Mass/Vol] 1.7 mg/dL 1.6 - 2 .6 mg/dL [facility] No Panel Informationon 08-29 Interpretation and review of laboratory results Abnormal [facility] PT,INR,PTTon 08-29-2023 aPTT Coag (PPP) [Time] 29.3 s [facility] INR Coag (Bld) [Relative time] 1.1 {INR} 0.9 - 1.1 [facility] Interpretation and review of laboratory results Normal [facility] PT Coag (PPP) [Time] 13.8 s [facility] Portable XR Chest Viewson RADIOLOGY RADIOLOGY [facility] Portable XR Chest ViewsOrder ed By: Gerald Baer on 08-29-2023 [facility] Work Phone: TACROLIMUS LEVEL, TROUGH (SC E DRUG LEVEL)on 08-29-2023 Interpretation and review of laboratory results Normal [facility] Tacrolimus (Bld) [Mass/Vol] 8.9 ng/mL [facility] TACROLIMUS LEVEL, TROUGH (SC E DRUG LEVEL)Ordered By: Roxanne Louie on 08-29-2023 Interpretation and review of laboratory results Normal [facility] Tacrolimus (Bld) [Mass/Vol] 8.7 ng/mL [facility] URINALYSIS REFLEX TO CULTURE PERFORMABLEOrdered By: Shaji Kelly on 08-29-2023 Appearance (U) Clear Clear [facility] Bacteria LM Ql (Urine sed) ABSENT ABSENT [facility] Calcium Oxalate Crystals PRESENT [facility] Color (U) Yellow Yellow [facility] Epithelial cells.squamous LM Ql (Urine sed) 0-2/hpf 0-2/hpf, 3-5/hpf = 1+ [facility] Glucose Test strip (U) [Mass/Vol] Negative Negative [facility] Interpretation and review of laboratory results Abnormal [facility] Ketones (U) [Mass/Vol] Negative Negative [facility] Leukocyte esterase Test strip Ql (U) Negative Negative [facility] Nitrite Ql (U) Negative Negative [facility] pH (U) 6.0 [pH] 5.0 - 7.0 [facility] Protein (U) [Mass/Vol] Negative Negative [facility] RBC (U) [#/Vol] Trace Abnormal Negative [facility] RBC LM.HPF (Urine sed) [#/Area] 3-5 Abnormal [facility] Specific gravity (U) [Rel density] 1.015 1.001 - 1.035 [facility] Urobilinogen (U) [Mass/Vol] 1.0 E.U./dL 0.2 E.U/dL, 1.0 E.U/dL [facility] WBC LM.HPF (Urine sed) [#/Area] 0 - 5 [facility] US for transplanted kidney l imitedon 08-29-2023 RADIOLOGY RADIOLOGY [facility] Radiology Study observation (narrative) [facility] US for transplanted kidney l imitedOrdered By: Romana Matias on 08-29-2023 [facility] Work Phone: CBC AND ELECTRONIC DIFFon Basophils (Bld) [#/Vol] K/uL 0.00 - 0.09 K/uL [facility] Basophils/100 WBC (Bld) 0.6 % [facility] Differential cell count method Nom (Bld) Electronic Differential [facility] Eosinophils (Bld) [#/Vol] 0.10 10*3/uL 0.00 - 0.48 K/uL [facility] Eosinophils/100 WBC (Bld) 2.1 % [facility] Erythrocyte distribution width (RBC) [Ratio] 13.4 % 10.9 - 14.3 % [facility] Hematocrit (Bld) [Volume fraction] 37.9 % Low 39.6 - 48.8 % [facility] Hemoglobin (Bld) [Mass/Vol] 12.4 g/dL Low 13.4 - 16.8 g/dL [facility] Immature granulocytes (Bld) [#/Vol] K/uL NINF - 0.07 K/uL [facility] Immature granulocytes/100 WBC (Bld) 0.6 % [facility] Interpretation and review of laboratory results Abnormal [facility] Lymphocytes (Bld) [#/Vol] 1.76 10*3/uL 0.83 - 3.57 K/uL [facility] Lymphocytes/100 WBC (Bld) 37.1 % [facility] MCH (RBC) [Entitic mass] 27.8 pg 26.1 - 33.3 pg [facility] MCHC (RBC) [Mass/Vol] 32.7 g/dL 31.9 - 36.5 g/dL [facility] MCV (RBC) [Entitic vol] 85.0 fL 79.0 - 94.5 fL [facility] Monocytes (Bld) [#/Vol] 0.66 10*3/uL 0.24 - 0.93 K/uL [facility] Monocytes/100 WBC (Bld) 13.9 % [facility] Neutrophils (Bld) [#/Vol] 2.16 10*3/uL 1.57 - 6.19 K/uL [facility] Nucleated RBC/100 WBC (Bld) [[facility]] 0.0 % [facility] Platelet mean volume (Bld) [Entitic vol] 9.3 fL 8.7 - 12.3 fL [facility] Platelets (Bld) [#/Vol] 262 10*3/uL 146 - 337 K/uL [facility] RBC (Bld) [#/Vol] 4.46 10*6/uL [facility] Segmented neutrophils/100 WBC (Bld) 45.7 % [facility] WBC (Bld) [#/Vol] 4.74 10*3/uL 3.73 - 10. 10 K/uL [facility] CHEM 6 (LYTES, BUN CREA)on 0 08-28-2023 Anion gap [Moles/Vol] 13 mmol/L 7 - 17 mmol/L [facility] Chloride [Moles/Vol] 103 mmol/L 98 - 10 8 mmol/L [facility] CO2 [Moles/Vol] 22 mmol/L 21 - 31 mmol/L [facility] Creatinine [Mass/Vol] 1.62 mg/dL High 0.70 - 1.30 mg/dL [facility] eGFR, CKD-EPI, Male 52 Low - PINF [facility] Interpretation and review of laboratory results Abnormal [facility] Potassium [Moles/Vol] 4.3 mmol/L 3.5 - 5.0 mmol/L [facility] Sodium [Moles/Vol] 134 mmol/L Low 135 - 145 mmol/L [facility] Urea nitrogen [Mass/Vol] 22 mg/dL 7 - 25 mg/dL [facility] Urea nitrogen/Creatinine [Mass ratio] 14 mg[facility]mg [facility] Radiology Study observation (narrative) [facility] Respiratory virus DNA+RNA NA A+probe Nom (Unsp spec)Ordered By: Dayami Harris on 08-28-2023 Adenovirus DNA ESTELITA+probe Nom (Unsp spec) Not detected Not Detected [facility] B. parapertussis DNA ESTELITA+probe Ql (Unsp spec) Not detected Not Detected [facility] B. pertussis DNA ESTELITA+probe Ql (Unsp spec) Not detected Not Detected [facility] C. pneumoniae DNA ESTELITA+probe Ql (Unsp spec) Not detected Not Detected [facility] FLUAV RNA ESTELITA+probe Ql (Unsp spec) Not detected Not Detected [facility] FLUBV RNA ESTELITA+probe Ql (Unsp spec) Not detected Not Detected [facility] HCoV 229E RNA ESTELITA+non-probe Ql (Nph) Not detected Not Detected [facility] HCoV HKU1 RNA ESTELITA+non-probe Ql (Nph) Not detected Not Detected [facility] HCoV NL63 RNA ESTELITA+non-probe Ql (Nph) Not detected Not Detected [facility] HCoV OC43 RNA ESTELITA+non-probe Ql (Nph) Not detected Not Detected [facility] hMPV A RNA ESTELITA+probe Ql (Unsp spec) Not detected Not Detected [facility] Interpretation and review of laboratory results Normal [facility] M. pneumoniae DNA ESTELITA+probe Ql (Unsp spec) Not detected Not Detected [facility] Parainfluenza virus 1 RNA ESTELITA+probe Ql (Unsp spec) Not detected Not Detected [facility] Parainfluenza virus 2 RNA ESTELITA+probe Ql (Unsp spec) Not detected Not Detected [facility] Parainfluenza virus 3 RNA ESTELITA+probe Ql (Unsp spec) Not detected Not Detected [facility] Parainfluenza virus 4 RNA ESTELITA+probe Ql (Unsp spec) Not detected Not Detected [facility] Rhinovirus+Enterovir us RNA ESTELITA+probe Ql (Unsp spec) Not detected Not Detected [facility] RSV RNA ESTELITA+probe Ql (Unsp spec) Not detected Not Detected [facility] SARS-CoV-2 (COVID-19) RNA ESTELITA+probe Ql (Unsp spec) Not detected NOT DETECTED [facility] ALBUMINon 04-28-2023 Albumin [Mass/Vol] 4.0 g/dL Normal 3.4-5.0 [facility] Comment on above: Performed By: #### C MP #### [facility] [address] [place] [address] Dr. Dwight Waters ALKALINE PHOSPHAon ALP [Catalytic activity/Vol] 106 U/L Normal 46-116 [facility] Comment on above: Performed By: #### F [id number] #### [facility] [address] [place] [address] Dr. Dwight Waters BILIRUBIN CONJUGATED (DIRECT )on 04-28-2023 BILI, CONJUGATED 0.3 mg/dL Critically high 0.0-0.2 [facility] Comment on above: Performed By: #### C MP #### [facility] [address] [place] [address] Dr. Dwight Waters BILIRUBIN TOTALon 04-28-2023 Bilirubin [Mass/Vol] 1.4 mg/dL Critically high 0.2-1.0 [facility] Comment on above: Performed By: #### C MP #### [facility] [address] [place] [address] Dr. Diwght Waters BUNon 04-28-2023 Urea nitrogen [Mass/Vol] 12.0 mg/dL Normal 7.0-18.0 [facility] Comment on above: Performed By: #### U RTPCR #### [facility] [address] [place] [address] Dr. Dwight Waters CALCIUMon 04-28-2023 Calcium [Mass/Vol] 9.3 mg/dL Normal 8.5-10.1 [facility] Comment on above: Performed By: #### U RTPCR #### [facility] [address] [place] [address] Dr. Dwight Waters CBC AUTO DIFFon 04-28-2023 BASO # 0.1 103/ul Normal 0.0-0.1 [facility] Comment on above: Performed By: #### C BC #### [facility] [address] [place] [address] Dr. Dwight Waters Basophils/100 WBC (Bld) 0.9 % Normal 0.2-2.0 [facility] Comment on above: Performed By: #### C BC #### [facility] [address] [place] [address] Dr. Dwight Waters EO # 0.2 103/ul Normal 0.0-0.7 [facility] Comment on above: Performed By: #### C BC #### [facility] [address] [place] [address] Dr. Dwight Waters Eosinophils/100 WBC (Bld) 3.8 % Normal 0.9-7.0 [facility] Comment on above: Performed By: #### C BC #### [facility] [address] [place] [address] Dr. Dwight Waters Erythrocyte distribution width (RBC) [Ratio] 12.5 % Normal 11.0-15.0 [facility] Comment on above: Performed By: #### C BC #### [facility] [address] [place] [address] Dr. Dwight Waters Hematocrit (Bld) [Volume fraction] 49.8 % Normal 42.0-54.0 [facility] Comment on above: Performed By: #### C BC #### [facility] [address] [place] [address] Dr. Dwight Waters Hemoglobin (Bld) [Mass/Vol] 16.4 g/dL Normal 14.0-18.0 [facility] Comment on above: Performed By: #### C BC #### [facility] [address] [place] [address] Dr. Dwight Waters IG # 0.01 10e3/ul Normal 0.00-0.03 [facility] Comment on above: Performed By: #### C BC #### [facility] [address] [place] [address] Dr. Dwight Waters IG % 0.2 % Normal 0.0-0.5 [facility] Comment on above: Performed By: #### C BC #### [facility] [address] [place] [address] Dr. Dwight Waters LYMPH # 2.1 103/ul Normal 1.2-3.8 [facility] Comment on above: Performed By: #### C BC #### [facility] [address] [place] [address] Dr. Dwight Waters Lymphocytes/100 WBC (Bld) 39.1 % Normal 20.5-60.0 [facility] Comment on above: Performed By: #### C BC #### [facility] [address] [place] [address] Dr. Dwight Waters MANUAL DIFF REQ NO Normal [facility] Comment on above: Performed By: #### C BC #### [facility] [address] [place] [address] Dr. Dwight Waters MCH (RBC) [Entitic mass] 28.6 pg Normal 25.9-34.0 [facility] Comment on above: Performed By: #### C BC #### [facility] [address] [place] [address] Dr. Dwight Waters MCHC (RBC) [Mass/Vol] 32.9 g/dL Normal 29.9-35.2 [facility] Comment on above: Performed By: #### C BC #### [facility] [address] [address] [address] Dwight Waters MCV (RBC) [Entitic vol] 86.9 fL Normal 80.0-94.0 [facility] Comment on above: Performed By: #### C BC #### [facility] [address] [address] [address] Dwigth Waters MONO # 0.6 103/ul Normal 0.3-0.8 [facility] Comment on above: Performed By: #### C BC #### [facility] [address] [place] [address] Dr. Dwight Waters Monocytes/100 WBC (Bld) 10.6 % Normal 1.7-12.0 [facility] Comment on above: Performed By: #### C BC #### [facility] [address] [place] [address] Dr. Dwight Waters NEUT # 2.5 103/ul Normal 1.4-6.5 [facility] Comment on above: Performed By: #### C BC #### [facility] [address] [place] [address] Dr. Dwight Waters Neutrophils/100 WBC (Bld) 45.4 % Normal 43.0-75.0 [facility] Comment on above: Performed By: #### C BC #### [facility] [address] [place] [address] Dr. Dwight Waters Platelet mean volume (Bld) [Entitic vol] 9.3 fL Critically low 9.5-13.5 [facility] Comment on above: Performed By: #### C BC #### [facility] [address] [place] [address] Dr. Dwight Waters PLT 248 103/ul Normal 150-450 [facility] Comment on above: Performed By: #### C BC #### [facility] [address] [place] [address] Dr. Dwight Waters RBC 5.73 106/ul Normal 4.70-6.10 [facility] Comment on above: Performed By: #### C BC #### [facility] [address] [place] [address] Dr. Dwight Waters WBC 5.5 103/ul Normal 4.0-11.0 [facility] Comment on above: Performed By: #### C BC #### [facility] [address] [place] [address] Dr. Dwight Waters CHLORIDEon 04-28-2023 Chloride [Moles/Vol] 107 mmol/L Normal 98-107 [facility] Comment on above: Performed By: #### U RTPCR #### [facility] [address] [place] [address] Dr. Dwight Waters CO2on 04-28-2023 CO2 [Moles/Vol] 28.9 mmol/L Normal 21.0-32.0 [facility] Comment on above: Performed By: #### U RTPCR #### [facility] [address] [place] [address] Dr. Dwight Waters CREATININEon 04-28-2023 Creatinine [Mass/Vol] 1.17 mg/dL Normal 0.70-1.30 [facility] Comment on above: Performed By: #### U RTPCR #### [facility] [address] [place] [address] Dr. Dwight Waters EGFR-AF FAROESE >60 Normal >=60 [facility] Comment on above: Performed By: #### U RTPCR #### [facility] [address] [place] [address] Dr. Dwight Waters EGFR-NON AF FAROESE >60 Normal >=60 [facility] Comment on above: Performed By: #### U RTPCR #### [facility] [address] [place] [address] Dr. Dwight Waters GGTon 04-28-2023 Gamma glutamyl transferase [Catalytic activity/Vol] 27 U/L Normal 15-85 [facility] Comment on above: Performed By: #### U RTPCR #### [facility] [address] [place] [address] Dr. Dwight Waters GLUCOSE BLOODon 04-28-2023 Glucose [Mass/Vol] 110 mg/dL Critically high 74-106 [facility] Comment on above: Performed By: #### U RTPCR #### [facility] [address] [place] [address] Dr. Dwight Waters MAGNESIUMon 04-28-2023 Magnesium [Mass/Vol] 1.7 mg/dL Critically low 1.8-2.4 [facility] Comment on above: Performed By: #### U RTPCR #### [facility] [address] [place] [address] Dr. Dwight Waters NAon 04-28-2023 Sodium [Moles/Vol] 144 mmol/L Normal 136-145 [facility] Comment on above: Performed By: #### U RTPCR #### [facility] [address] [place] [address] Dr. Dwight Waters PHOSPHORUSon 04-28-2023 Phosphate [Mass/Vol] 3.2 mg/dL Normal 2.6-4.7 [facility] Comment on above: Performed By: #### U RTPCR #### [facility] [address] [place] [address] Dr. Dwight Waters POTASSIUMon 04-28-2023 Potassium [Moles/Vol] 4.0 mmol/L Normal 3.5-5.1 [facility] Comment on above: Performed By: #### U RTPCR #### [facility] [address] [place] [address] Dr. Dwight Waters SGOTon 04-28-2023 AST [Catalytic activity/Vol] 25 U/L Normal 15-37 [facility] Comment on above: Performed By: #### C MP #### [facility] [address] [place] [address] Dr. Dwight Waters SGPTon 04-28-2023 ALT [Catalytic activity/Vol] 40 U/L Normal 16-63 [facility] Comment on above: Performed By: #### C MP #### [facility] [address] [place] [address] Dr. Dwight Waters URINE T PROTEIN CREAT RATIOo n 04-28-2023 Protein (U) [Mass/Vol] 10.1 mg/dL Normal <=12.0 [facility] Comment on above: Performed By: #### U RTPCR #### [facility] [address] [place] [address] Dr. Dwight Waters UR PROT CREAT RAT 0.14 Normal [facility] Comment on above: Performed By: #### U RTPCR #### [facility] [address] [place] [address] Dr. Dwight Waters URINE CREAT 74.40 mg/dL Normal 20.00-300.00 [facility] Comment on above: Performed By: #### U RTPCR #### [facility] [address] [place] [address] Dr. Dwight Waters BK VIRUS PCR QUANTon 023 BKV DNA QUANT PCR PLASMA Negative Normal Negative [facility] Comment on above: Result Comment: No B K DNA detected. . The linear range of the assay is 22 - 100,000,000 IU/mL. Performed By: #### B KVIRUS #### [facility] [address] [place] [address] Dr. Dwight Waters Log10 BKV DNA Plasma Normal [facility] Comment on above: Performed By: #### B KVIRUS #### [facility] [address] [place] [address] Dr. Dwight Waters FK506 (TACROLIMUS) WHOLE BLO ODon 03-04-2023 Tacrolimus (FK506), Blood 5.9 ng/mL Normal 2.0-20.0 [facility] Comment on above: Result Comment: Trou gh (immediately following transplant) 15.0 . Trough (steady state, 2 weeks or more after transplant): 3.0 - 8.0 . Performed by LC-MS/MS technology. Performed By: #### C MP #### [facility] [address] [place] [address] Dr. Dwight Waters ALBUMINon 03-02-2023 Albumin [Mass/Vol] 3.9 g/dL Normal 3.4-5.0 [facility] Comment on above: Performed By: #### U RTPCR #### [facility] [address] [place] [address] Dr. Dwight Waters ALKALINE PHOSPHAon ALP [Catalytic activity/Vol] 105 U/L Normal 46-116 [facility] Comment on above: Performed By: #### U RTPCR #### [facility] [address] [place] [address] Dr. Dwight Waters BILIRUBIN CONJUGATED (DIRECT )on 03-02-2023 BILI, CONJUGATED 0.2 mg/dL Normal 0.0-0.2 [facility] Comment on above: Performed By: #### U RTPCR #### [facility] [address] [place] [address] Dr. Dwight Waters BILIRUBIN TOTALon 03-02-2023 Bilirubin [Mass/Vol] 0.9 mg/dL Normal 0.2-1.0 [facility] Comment on above: Performed By: #### U RTPCR #### [facility] [address] [place] [address] Dr. Dwight Waters CBC AUTO DIFFon 03-02-2023 BASO # 0.1 103/ul Normal 0.0-0.1 [facility] Comment on above: Performed By: #### C BC #### [facility] [address] [place] [address] Dr. Dwight Waters Basophils/100 WBC (Bld) 0.9 % Normal 0.2-2.0 [facility] Comment on above: Performed By: #### C BC #### [facility] [address] [place] [address] Dr. Dwight Waters EO # 0.2 103/ul Normal 0.0-0.7 [facility] Comment on above: Performed By: #### C BC #### [facility] [address] [place] [address] Dr. Dwight Waters Eosinophils/100 WBC (Bld) 3.5 % Normal 0.9-7.0 [facility] Comment on above: Performed By: #### C BC #### [facility] [address] [place] [address] Dr. Dwight Waters Erythrocyte distribution width (RBC) [Ratio] 12.7 % Normal 11.0-15.0 [facility] Comment on above: Performed By: #### C BC #### [facility] [address] [place] [address] Dr. Dwight Waters Hematocrit (Bld) [Volume fraction] 48.2 % Normal 42.0-54.0 [facility] Comment on above: Performed By: #### C BC #### [facility] [address] [place] [address] Dr. Dwight Waters Hemoglobin (Bld) [Mass/Vol] 15.9 g/dL Normal 14.0-18.0 [facility] Comment on above: Performed By: #### C BC #### [facility] [address] [place] [address] Dr. Dwight Waters IG # 0.01 10e3/ul Normal 0.00-0.03 [facility] Comment on above: Performed By: #### C BC #### [facility] [address] [place] [address] Dr. Dwight Waters IG % 0.2 % Normal 0.0-0.5 [facility] Comment on above: Performed By: #### C BC #### [facility] [address] [place] [address] Dr. Dwight Waters LYMPH # 2.1 103/ul Normal 1.2-3.8 [facility] Comment on above: Performed By: #### C BC #### [facility] [address] [place] [address] Dr. Dwight Waters Lymphocytes/100 WBC (Bld) 37.4 % Normal 20.5-60.0 [facility] Comment on above: Performed By: #### C BC #### [facility] [address] [place] [address] Dr. Dwight Waters MANUAL DIFF REQ NO Normal [facility] Comment on above: Performed By: #### C BC #### [facility] [address] [place] [address] Dr. Dwight Watesr MCH (RBC) [Entitic mass] 28.3 pg Normal 25.9-34.0 [facility] Comment on above: Performed By: #### C BC #### [facility] [address] [address] [address] Dwight Waters MCHC (RBC) [Mass/Vol] 33.0 g/dL Normal 29.9-35.2 [facility] Comment on above: Performed By: #### C BC #### [facility] [address] [id number] Dwight Waters MCV (RBC) [Entitic vol] 85.8 fL Normal 80.0-94.0 [facility] Comment on above: Performed By: #### C BC #### [facility] [address] [address] [address] Dwight Waters MONO # 0.6 103/ul Normal 0.3-0.8 [facility] Comment on above: Performed By: #### C BC #### [facility] [address] [place] [address] Dr. Dwight Waters Monocytes/100 WBC (Bld) 10.2 % Normal 1.7-12.0 [facility] Comment on above: Performed By: #### C BC #### [facility] [address] [place] [address] Dr. Dwight Waters NEUT # 2.7 103/ul Normal 1.4-6.5 [facility] Comment on above: Performed By: #### C BC #### [facility] [address] [place], [place] [id number] Dr. Dwight Waters Neutrophils/100 WBC (Bld) 47.8 % Normal 43.0-75.0 [facility] Comment on above: Performed By: #### C BC #### [facility] [address] [place], [place] [id number] Dr. Dwight Waters Platelet mean volume (Bld) [Entitic vol] 9.3 fL Critically low 9.5-13.5 [facility] Comment on above: Performed By: #### C BC #### [facility] [address] [place], [place] [id number] Dr. Dwight Waters PLT 241 103/ul Normal 150-450 [facility] Comment on above: Performed By: #### C BC #### [facility] [address] [place] [address] Dr. Dwight Waters RBC 5.62 106/ul Normal 4.70-6.10 [facility] Comment on above: Performed By: #### C BC #### [facility] [address] [place] [address] Dr. Dwight Waters WBC 5.7 103/ul Normal 4.0-11.0 [facility] Comment on above: Performed By: #### C BC #### [facility] [address] [place] [address] Dr. Dwight Waters GGTon 03-02-2023 Gamma glutamyl transferase [Catalytic activity/Vol] 25 U/L Normal 15-85 [facility] Comment on above: Performed By: #### U RTPCR #### [facility] [address] [place] [address] Dr. Dwight Waters MAGNESIUMon 03-02-2023 Magnesium [Mass/Vol] 1.6 mg/dL Critically low 1.8-2.4 [facility] Comment on above: Performed By: #### U RTPCR #### [facility] [address] [place] [address] Dr. Dwight Waters PHOSPHORUSon 03-02-2023 Phosphate [Mass/Vol] 3.6 mg/dL Normal 2.6-4.7 [facility] Comment on above: Performed By: #### U RTPCR #### [facility] [address] [place] [address] Dr. Dwight Waters PROF CHEM 8 (BAS METB)on Anion gap [Moles/Vol] 9.4 mmol/L Normal [facility] Comment on above: Performed By: #### U RTPCR #### [facility] [address] [place] [address] Dr. Dwight Waters Calcium [Mass/Vol] 9.3 mg/dL Normal 8.5-10.1 [facility] Comment on above: Performed By: #### U RTPCR #### [facility] [address] [place] [address] Dr. Dwight Waters Chloride [Moles/Vol] 108 mmol/L Critically high 98-107 [facility] Comment on above: Performed By: #### U RTPCR #### [facility] [address] [address] [address] Dwight Waters CO2 [Moles/Vol] 27.2 mmol/L Normal 21.0-32.0 [facility] Comment on above: Performed By: #### U RTPCR #### [facility] [address] [address] [address] Dwight Waters Creatinine [Mass/Vol] 1.12 mg/dL Normal 0.70-1.30 [facility] Comment on above: Performed By: #### U RTPCR #### [facility] [address] [address] [address] Dwight Waters EGFR-AF FAROESE >60 Normal >=60 [facility] Comment on above: Performed By: #### U RTPCR #### [facility] [address] [address] [address] Dwight Waters EGFR-NON AF FAROESE >60 Normal >=60 [facility] Comment on above: Performed By: #### U RTPCR #### [facility] [address] [address] [address] Dwight Waters Glucose [Mass/Vol] 113 mg/dL Critically high 74-106 [facility] Comment on above: Performed By: #### U RTPCR #### [facility] [address] [address] [address] Dwight Waters Potassium [Moles/Vol] 3.6 mmol/L Normal 3.5-5.1 [facility] Comment on above: Performed By: #### U RTPCR #### [facility] [address] [address] [address] Dwight Waters Sodium [Moles/Vol] 141 mmol/L Normal 136-145 [facility] Comment on above: Performed By: #### U RTPCR #### [facility] [address] [address] [address] Dwight Waters Urea nitrogen [Mass/Vol] 14.0 mg/dL Normal 7.0-18.0 [facility] Comment on above: Performed By: #### U RTPCR #### [facility] [address] [place] [address] Dr. Dwight Waters Urea nitrogen/Creatinine [Mass ratio] 12.5 mg/mg Normal [facility] Comment on above: Performed By: #### U RTPCR #### [facility] [address] [place] [address] Dr. Dwight Waters SGOTon 03-02-2023 AST [Catalytic activity/Vol] 20 U/L Normal 15-37 [facility] Comment on above: Performed By: #### U RTPCR #### [facility] [address] [place] [address] Dr. Dwight Waters SGPTon 03-02-2023 ALT [Catalytic activity/Vol] 30 U/L Normal 16-63 [facility] Comment on above: Performed By: #### U RTPCR #### [facility] [address] [place] [address] Dr. Dwight Waters URINE T PROTEIN CREAT RATIOo n 03-02-2023 Protein (U) [Mass/Vol] 10.3 mg/dL Normal <=12.0 [facility] Comment on above: Performed By: #### U RTPCR #### [facility] [address] [place] [address] Dr. Dwight Waters UR PROT CREAT RAT 0.15 Normal [facility] Comment on above: Performed By: #### U RTPCR #### [facility] [address] [place] [address] Dr. Dwight Waters URINE CREAT 68.96 mg/dL Normal 20.00-300.00 [facility] Comment on above: Performed By: #### U RTPCR #### [facility] [address] [place] [address] Dr. Dwight Waters BK VIRUS PCR QUANTon 023 BKV DNA QUANT PCR PLASMA Negative Normal Negative [facility] Comment on above: Result Comment: No B K DNA detected. . The linear range of the assay is 22 - 100,000,000 IU/mL. Performed By: #### C MP #### [facility] [address] [place] [address] Dr. Dwight Waters Log10 BKV DNA Plasma Normal [facility] Comment on above: Performed By: #### C MP #### [facility] [address] [place] [address] Dr. Dwight Waters FK506 (TACROLIMUS) WHOLE BLO ODon 12-31-2022 Tacrolimus (FK506), Blood 5.6 ng/mL Normal 2.0-20.0 [facility] Comment on above: Result Comment: Trou gh (immediately following transplant) 15.0 . Trough (steady state, 2 weeks or more after transplant): 3.0 - 8.0 . Performed by LC-MS/MS technology. Performed By: #### C MP #### [facility] [address] [place] [address] Dr. Dwight Waters ALKALINE PHOSPHAon ALP [Catalytic activity/Vol] 96 U/L Normal 46-116 [facility] Comment on above: Performed By: #### C BC #### [facility] [address] [place] [address] Dr. Dwight Waters BILIRUBIN CONJUGATED (DIRECT )on 12-29-2022 BILI, CONJUGATED 0.3 mg/dL Critically high 0.0-0.2 [facility] Comment on above: Performed By: #### C BC #### [facility] [address] [place] [address] Dr. Dwight Waters BILIRUBIN TOTALon 12-29-2022 Bilirubin [Mass/Vol] 1.1 mg/dL Critically high 0.2-1.0 [facility] Comment on above: Performed By: #### C BC #### [facility] [address] [place] [address] Dr. Dwight Waters CBC AUTO DIFFon 12-29-2022 BASO # 0.1 103/ul Normal 0.0-0.1 [facility] Comment on above: Performed By: #### C MP #### [facility] [address] [place] [address] Dr. Dwight Waters Basophils/100 WBC (Bld) 0.8 % Normal 0.2-2.0 [facility] Comment on above: Performed By: #### C MP #### [facility] [address] [place] [address] Dr. Dwight Waters EO # 0.2 103/ul Normal 0.0-0.7 [facility] Comment on above: Performed By: #### C MP #### [facility] [address] [place] [address] Dr. Dwight Waters Eosinophils/100 WBC (Bld) 3.0 % Normal 0.9-7.0 [facility] Comment on above: Performed By: #### C MP #### [facility] [address] [place] [address] Dr. Dwight Waters Erythrocyte distribution width (RBC) [Ratio] 12.9 % Normal 11.0-15.0 [facility] Comment on above: Performed By: #### C MP #### [facility] [address] [place] [address] Dr. Dwight Waters Hematocrit (Bld) [Volume fraction] 46.9 % Normal 42.0-54.0 [facility] Comment on above: Performed By: #### C MP #### [facility] [address] [place] [address] Dr. Dwight Waters Hemoglobin (Bld) [Mass/Vol] 16.1 g/dL Normal 14.0-18.0 [facility] Comment on above: Performed By: #### C MP #### [facility] [address] [place] [address] Dr. Dwight Waters IG # 0.01 10e3/ul Normal 0.00-0.03 [facility] Comment on above: Performed By: #### C MP #### [facility] [address] [place] [address] Dr. Dwight Waters IG % 0.2 % Normal 0.0-0.5 [facility] Comment on above: Performed By: #### C MP #### [facility] [address] [place] [address] Dr. Dwight Waters LYMPH # 1.8 103/ul Normal 1.2-3.8 [facility] Comment on above: Performed By: #### C MP #### [facility] [address] [place] [address] Dr. Dwight Waters Lymphocytes/100 WBC (Bld) 27.9 % Normal 20.5-60.0 [facility] Comment on above: Performed By: #### C MP #### [facility] [address] [place] [address] Dr. Dwight Waters MANUAL DIFF REQ NO Normal [facility] Comment on above: Performed By: #### C MP #### [facility] [address] [place] [address] Dr. Dwight Waters MCH (RBC) [Entitic mass] 28.5 pg Normal 25.9-34.0 [facility] Comment on above: Performed By: #### C MP #### [facility] [address] [place] [address] Dr. Dwight Waters MCHC (RBC) [Mass/Vol] 34.3 g/dL Normal 29.9-35.2 [facility] Comment on above: Performed By: #### C MP #### [facility] [address] [place] [address] Dr. Dwight Waters MCV (RBC) [Entitic vol] 83.2 fL Normal 80.0-94.0 [facility] Comment on above: Performed By: #### C MP #### [facility] [address] [place] [address] Dr. wDight Waters MONO # 0.5 103/ul Normal 0.3-0.8 [facility] Comment on above: Performed By: #### C MP #### [facility] [address] [place] [address] Dr. Dwight Waters Monocytes/100 WBC (Bld) 8.1 % Normal 1.7-12.0 [facility] Comment on above: Performed By: #### C MP #### [facility] [address] [place] [address] Dr. Dwight Waters NEUT # 3.8 103/ul Normal 1.4-6.5 [facility] Comment on above: Performed By: #### C MP #### [facility] [address] [place] [address] Dr. Dwight Waters Neutrophils/100 WBC (Bld) 60.0 % Normal 43.0-75.0 [facility] Comment on above: Performed By: #### C MP #### [facility] [address] [place] [address] Dr. Dwight Waters Platelet mean volume (Bld) [Entitic vol] 9.2 fL Critically low 9.5-13.5 [facility] Comment on above: Performed By: #### C MP #### [facility] [address] [place] [address] Dr. Dwight Waters PLT 225 103/ul Normal 150-450 [facility] Comment on above: Performed By: #### C MP #### [facility] [address] [place] [address] Dr. Dwight Watres RBC 5.64 106/ul Normal 4.70-6.10 [facility] Comment on above: Performed By: #### C MP #### [facility] [address] [place] [address] Dr. Dwight Waters WBC 6.3 103/ul Normal 4.0-11.0 [facility] Comment on above: Performed By: #### C MP #### [facility] [address] [place] [address] Dr. Dwight Waters GGTon 12-29-2022 Gamma glutamyl transferase [Catalytic activity/Vol] 24 U/L Normal 15-85 [facility] Comment on above: Performed By: #### C MP #### [facility] [address] [place] [address] Dr. Dwight Waters LIPID PROFILEon 12-29-2022 CHOL-HDL RATIO NORM SEE BELOW Normal [facility] Comment on above: Result Comment: 3.3 - 4.4 LOW RISK 4.4 - 7.1 AVERAGE RISK 7.1 - 11.0 MODERATE RISK >11.0 HIGH RISK Performed By: #### U RTPCR #### [facility] [address] [place] [address] Dr. Dwight Waters Cholesterol [Mass/Vol] 87 mg/dL Normal <=200 [facility] Comment on above: Performed By: #### U RTPCR #### [facility] [address] [address] [address] Dwight Waters Cholesterol in HDL [Mass/Vol] 44 mg/dL Normal 40-60 [facility] Comment on above: Performed By: #### U RTPCR #### [facility] [address] [address] [address] Dwight Waters Cholesterol in LDL [Mass/Vol] 33.0 mg/dL Normal [facility] Comment on above: Performed By: #### U RTPCR #### [facility] [address] [address] [address] Dwight Waters Cholesterol.total/Ch olesterol in HDL [Mass ratio] 2.0 {ratio} Normal [facility] Comment on above: Performed By: #### U RTPCR #### [facility] [address] [place] [address] Dr. Dwight Waters HDL NORMAL > or = 60 mg/dl - LO W CARDIOVASCULAR RISK <40 mg/dl - HIGH CARDIOVASCULAR RISK Normal [facility] Comment on above: Performed By: #### U RTPCR #### [facility] [address] [address] [address] Dwight Waters LDL CALC NORMAL SEE BELOW Normal [facility] Comment on above: Result Comment: <100 mg/dl OPTIMAL 100 - 129 mg/dl NEAR OR ABOVE OPTIMAL 130 - 159 mg/dl BORDERLINE HIGH 160 - 189 mg/dl HIGH >190 mg/dl VERY HIGH Performed By: #### U RTPCR #### [facility] [address] [address] [address] Dwight Waters Triglyceride [Mass/Vol] 50 mg/dL Normal <=150 [facility] Comment on above: Performed By: #### U RTPCR #### [facility] [address] [address] [address] Dwight Waters VLDL CALC 10.0 mg/dL Normal [facility] Comment on above: Performed By: #### U RTPCR #### [facility] [address] [address] [address] Dwight Waters MAGNESIUMon 12-29-2022 Magnesium [Mass/Vol] 1.6 mg/dL Critically low 1.8-2.4 [facility] Comment on above: Performed By: #### C BC #### [facility] [address] [place] [address] Dr. Dwight Waters RENAL FUNCTION PANELon 12-29 Albumin [Mass/Vol] 3.9 g/dL Normal 3.4-5.0 [facility] Comment on above: Performed By: #### C BC #### [facility] [address] [place] [address] Dr. Dwight Waters Calcium [Mass/Vol] 9.2 mg/dL Normal 8.5-10.1 [facility] Comment on above: Performed By: #### C BC #### [facility] [address] [place] [address] Dr. Dwight Waters Chloride [Moles/Vol] 109 mmol/L Critically high 98-107 [facility] Comment on above: Performed By: #### C BC #### [facility] [address] [place] [address] Dr. Dwight Waters CO2 [Moles/Vol] 27.0 mmol/L Normal 21.0-32.0 [facility] Comment on above: Performed By: #### C BC #### [facility] [address] [place] [address] Dr. Dwight Waters Creatinine [Mass/Vol] 1.02 mg/dL Normal 0.70-1.30 [facility] Comment on above: Performed By: #### C BC #### [facility] [address] [place] [address] Dr. Dwight Waters EGFR-AF FAROESE >60 Normal >=60 [facility] Comment on above: Performed By: #### C BC #### [facility] [address] [place] [address] Dr. Dwight Waters EGFR-NON AF FAROESE >60 Normal >=60 [facility] Comment on above: Performed By: #### C BC #### [facility] [address] [place] [address] Dr. Dwight Waters Glucose [Mass/Vol] 117 mg/dL Critically high 74-[address] [facility] Comment on above: Performed By: #### C BC #### [facility] [address] [address] [address] Dwight Waters Phosphate [Mass/Vol] 3.2 mg/dL Normal 2.6-4.7 [facility] Comment on above: Performed By: #### C BC #### [facility] [address] [address] [address] Dwight Waters Potassium [Moles/Vol] 4.1 mmol/L Normal 3.5-5.1 [facility] Comment on above: Performed By: #### C BC #### [facility] [address] [address] [address] Dwight Waters Sodium [Moles/Vol] 144 mmol/L Normal 136-145 [facility] Comment on above: Performed By: #### C BC #### [facility] [address] [place] [address] Dr. Dwight Waters Urea nitrogen [Mass/Vol] 13.0 mg/dL Normal 7.0-18.0 [facility] Comment on above: Performed By: #### C BC #### [facility] [address] [place] [address] Dr. Dwight Waters SGOToamanda 12-29-2022 AST [Catalytic activity/Vol] 21 U/L Normal 15-37 [facility] Comment on above: Performed By: #### C BC #### [facility] [address] [place] [address] Dr. Dwight Waters SGPTon 12-29-2022 ALT [Catalytic activity/Vol] 32 U/L Normal 16-63 [facility] Comment on above: Performed By: #### C BC #### [facility] [address] [place] [address] Dr. Dwight Waters URINE T PROTEIN CREAT RATIOo n 12-29-2022 Protein (U) [Mass/Vol] 14.3 mg/dL Critically high <=12.0 [facility] Comment on above: Performed By: #### U RTPCR #### [facility] [address] [place] [address] Dr. Dwight Waters UR PROT CREAT RAT 0.17 Normal [facility] Comment on above: Performed By: #### U RTPCR #### [facility] [address] [place] [address] Dr. Dwight Waters URINE CREAT 86.58 mg/dL Normal 20.00-300.00 [facility] Comment on above: Performed By: #### U RTPCR #### [facility] [address] [place] [address] Dr. Dwight Waters FK506 (TACROLIMUS) WHOLE BLO ODon 11-06-2022 Tacrolimus (FK506), Blood 4.9 ng/mL Normal 2.0-20.0 [facility] Comment on above: Result Comment: Trou gh (immediately following transplant) 15.0 . Trough (steady state, 2 weeks or more after transplant): 3.0 - 8.0 . Performed by LC-MS/MS technology. Performed By: #### U RTPCR #### [facility] [address] [place] [address] Dr. Dwight Waters ALKALINE PHOSPHAon ALP [Catalytic activity/Vol] 86 U/L Normal 46-116 [facility] Comment on above: Performed By: #### U RTPCR #### [facility] [address] [place] [address] Dr. Dwight Waters BILIRUBIN CONJUGATED (DIRECT )on 11-04-2022 BILI, CONJUGATED 0.2 mg/dL Normal 0.0-0.2 [facility] Comment on above: Performed By: #### U RTPCR #### [facility] [address] [place] [address] Dr. Dwight Waters BILIRUBIN TOTALon 11-04-2022 Bilirubin [Mass/Vol] 0.8 mg/dL Normal 0.2-1.0 [facility] Comment on above: Performed By: #### U RTPCR #### [facility] [address] [place] [address] Dr. Dwight Waters CBC AUTO DIFFon 11-04-2022 BASO # 0.1 103/ul Normal 0.0-0.1 [facility] Comment on above: Performed By: #### U RTPCR #### [facility] [address] [address] [address] Dwight Waters Basophils/100 WBC (Bld) 0.9 % Normal 0.2-2.0 [facility] Comment on above: Performed By: #### U RTPCR #### [facility] [address] [place] [address] Dr. Dwight Waters EO # 0.2 103/ul Normal 0.0-0.7 [facility] Comment on above: Performed By: #### U RTPCR #### [facility] [address] [place] [address] Dr. Dwight Waters Eosinophils/100 WBC (Bld) 3.7 % Normal 0.9-7.0 [facility] Comment on above: Performed By: #### U RTPCR #### [facility] [address] [place] [address] Dr. Dwight Waters Erythrocyte distribution width (RBC) [Ratio] 12.9 % Normal 11.0-15.0 [facility] Comment on above: Performed By: #### U RTPCR #### [facility] [address] [place] [address] Dr. Dwight Waters Hematocrit (Bld) [Volume fraction] 48.3 % Normal 42.0-54.0 [facility] Comment on above: Performed By: #### U RTPCR #### [facility] [address] [place] [address] Dr. Dwight Waters Hemoglobin (Bld) [Mass/Vol] 15.6 g/dL Normal 14.0-18.0 [facility] Comment on above: Performed By: #### U RTPCR #### [facility] [address] [place] [address] Dr. Dwight Waters IG # 0.01 10e3/ul Normal 0.00-0.03 [facility] Comment on above: Performed By: #### U RTPCR #### [facility] [address] [place] [address] Dr. Dwight Waters IG % 0.2 % Normal 0.0-0.5 [facility] Comment on above: Performed By: #### U RTPCR #### [facility] [address] [place] [address] Dr. Dwight Waters LYMPH # 1.9 103/ul Normal 1.2-3.8 [facility] Comment on above: Performed By: #### U RTPCR #### [facility] [address] [place] [address] Dr. Dwight Waters Lymphocytes/100 WBC (Bld) 33.0 % Normal 20.5-60.0 [facility] Comment on above: Performed By: #### U RTPCR #### [facility] [address] [place] [address] Dr. Dwight Waters MANUAL DIFF REQ NO Normal [facility] Comment on above: Performed By: #### U RTPCR #### [facility] [address] [place] [address] Dr. Dwight Waters MCH (RBC) [Entitic mass] 27.6 pg Normal 25.9-34.0 [facility] Comment on above: Performed By: #### U RTPCR #### [facility] [address] [place] [address] Dr. Dwight Waters MCHC (RBC) [Mass/Vol] 32.3 g/dL Normal 29.9-35.2 [facility] Comment on above: Performed By: #### U RTPCR #### [facility] [address] [place] [address] Dr. Dwight Waters MCV (RBC) [Entitic vol] 85.5 fL Normal 80.0-94.0 [facility] Comment on above: Performed By: #### U RTPCR #### [facility] [address] [place] [address] Dr. Dwight Waters MONO # 0.5 103/ul Normal 0.3-0.8 [facility] Comment on above: Performed By: #### U RTPCR #### [facility] [address] [place] [address] Dr. Dwight Waters Monocytes/100 WBC (Bld) 8.8 % Normal 1.7-12.0 [facility] Comment on above: Performed By: #### U RTPCR #### [facility] [address] [address] [address] Dwight Waters NEUT # 3.1 103/ul Normal 1.4-6.5 [facility] Comment on above: Performed By: #### U RTPCR #### [facility] [address] [place] [address] Dr. Dwight Waters Neutrophils/100 WBC (Bld) 53.4 % Normal 43.0-75.0 [facility] Comment on above: Performed By: #### U RTPCR #### [facility] [address] [place] [address] Dr. Dwight Waters Platelet mean volume (Bld) [Entitic vol] 9.2 fL Critically low 9.5-13.5 [facility] Comment on above: Performed By: #### U RTPCR #### [facility] [address] [place] [address] Dr. Dwight Waters PLT 255 103/ul Normal 150-450 [facility] Comment on above: Performed By: #### U RTPCR #### [facility] [address] [place] [address] Dr. Dwight Waters RBC 5.65 106/ul Normal 4.70-6.10 [facility] Comment on above: Performed By: #### U RTPCR #### [facility] [address] [place] [address] Dr. Dwight Waters WBC 5.7 103/ul Normal 4.0-11.0 [facility] Comment on above: Performed By: #### U RTPCR #### [facility] [address] [place] [address] Dr. Dwight Waters GGTon 11-04-2022 Gamma glutamyl transferase [Catalytic activity/Vol] 22 U/L Normal 15-85 [facility] Comment on above: Performed By: #### U RTPCR #### [facility] [address] [place] [address] Dr. Dwight Waters MAGNESIUMon 11-04-2022 Magnesium [Mass/Vol] 1.8 mg/dL Normal 1.8-2.4 [facility] Comment on above: Performed By: #### U RTPCR #### [facility] [address] [place] [address] Dr. Dwight Waters RENAL FUNCTION PANELon 11-04 Albumin [Mass/Vol] 3.8 g/dL Normal 3.4-5.0 [facility] Comment on above: Performed By: #### U RTPCR #### [facility] [address] [place] [address] Dr. Dwight Waters Calcium [Mass/Vol] 9.3 mg/dL Normal 8.5-10.1 [facility] Comment on above: Performed By: #### U RTPCR #### [facility] [address] [place] [address] Dr. Dwight Waters Chloride [Moles/Vol] 107 mmol/L Normal 98-107 [facility] Comment on above: Performed By: #### U RTPCR #### [facility] [address] [place] [address] Dr. Dwight Waters CO2 [Moles/Vol] 29.2 mmol/L Normal 21.0-32.0 [facility] Comment on above: Performed By: #### U RTPCR #### [facility] [address] [place] [address] Dr. Dwight Waters Creatinine [Mass/Vol] 1.07 mg/dL Normal 0.70-1.30 [facility] Comment on above: Performed By: #### U RTPCR #### [facility] [address] [place] [address] Dr. Dwight Waters EGFR-AF FAROESE >60 Normal >=60 [facility] Comment on above: Performed By: #### U RTPCR #### [facility] [address] [place] [address] Dr. Dwight Waters EGFR-NON AF FAROESE >60 Normal >=60 [facility] Comment on above: Performed By: #### U RTPCR #### [facility] [address] [place] [address] Dr. Dwight Waters Glucose [Mass/Vol] 106 mg/dL Normal 74-106 [facility] Comment on above: Performed By: #### U RTPCR #### [facility] [address] [address] [address] Dwight Waters Phosphate [Mass/Vol] 2.8 mg/dL Normal 2.6-4.7 [facility] Comment on above: Performed By: #### U RTPCR #### [facility] [address] [place] [address] Dr. Dwight Waters Potassium [Moles/Vol] 4.1 mmol/L Normal 3.5-5.1 [facility] Comment on above: Performed By: #### U RTPCR #### [facility] [address] [place] [address] Dr. Dwight Waters Sodium [Moles/Vol] 143 mmol/L Normal 136-145 [facility] Comment on above: Performed By: #### U RTPCR #### [facility] [address] [place] [address] Dr. Dwight Waters Urea nitrogen [Mass/Vol] 12.0 mg/dL Normal 7.0-18.0 [facility] Comment on above: Performed By: #### U RTPCR #### [facility] [address] [place] [address] Dr. Dwight Waters SGOTon 11-04-2022 AST [Catalytic activity/Vol] 19 U/L Normal 15-37 [facility] Comment on above: Performed By: #### U RTPCR #### [facility] [address] [place] [address] Dr. Dwight Waters SGPTon 11-04-2022 ALT [Catalytic activity/Vol] 28 U/L Normal 16-63 [facility] Comment on above: Performed By: #### U RTPCR #### [facility] [address] [place] [address] Dr. Dwihgt Waters URINE T PROTEIN CREAT RATIOo n 11-04-2022 Protein (U) [Mass/Vol] 10.7 mg/dL Normal <=12.0 [facility] Comment on above: Performed By: #### U RTPCR #### [facility] [address] [place] [address] Dr. Dwight Waters UR PROT CREAT RAT 0.13 Normal [facility] Comment on above: Performed By: #### U RTPCR #### [facility] [address] [place] [address] Dr. Dwight Waters URINE CREAT 84.50 mg/dL Normal 20.00-300.00 [facility] Comment on above: Performed By: #### U RTPCR #### [facility] [address] [place] [address] Dr. Dwight Waters FK506 (TACROLIMUS) WHOLE BLO ODon 09-18-2022 Tacrolimus (FK506), Blood 4.6 ng/mL Normal 2.0-20.0 [facility] Comment on above: Result Comment: Trou gh (immediately following transplant) 15.0 . Trough (steady state, 2 weeks or more after transplant): 3.0 - 8.0 . Performed by LC-MS/MS technology. Performed By: #### U RTPCR #### [facility] [address] [place] [address] Dr. Dwight Waters BK VIRUS PCR QUANTon 022 BKV DNA QUANT PCR PLASMA Negative Normal Negative [facility] Comment on above: Result Comment: No B K DNA detected. . The linear range of the assay is 22 - 100,000,000 IU/mL. Performed By: #### U RTPCR #### [facility] [address] [place] [address] Dr. Dwight Waters Log10 BKV DNA Plasma Normal [facility] Comment on above: Performed By: #### U RTPCR #### [facility] [address] [place] [address] Dr. Dwight Waters ALKALINE PHOSPHAon ALP [Catalytic activity/Vol] 92 U/L Normal 46-116 [facility] Comment on above: Performed By: #### U RTPCR #### [facility] [address] [place] [address] Dr. Dwight Waters BILIRUBIN CONJUGATED (DIRECT )on 09-15-2022 BILI, CONJUGATED 0.3 mg/dL Critically high 0.0-0.2 [facility] Comment on above: Performed By: #### U RTPCR #### [facility] [address] [place] [address] Dr. Dwight Waters BILIRUBIN TOTALon 09-15-2022 Bilirubin [Mass/Vol] 1.1 mg/dL Critically high 0.2-1.0 [facility] Comment on above: Performed By: #### U RTPCR #### [facility] [address] [place] [address] Dr. Dwight Waters CBC AUTO DIFFon 09-15-2022 BASO # 0.1 103/ul Normal 0.0-0.1 [facility] Comment on above: Performed By: #### C BC #### [facility] [address] [place] [address] Dr. Dwight Waters Basophils/100 WBC (Bld) 0.8 % Normal 0.2-2.0 [facility] Comment on above: Performed By: #### C BC #### [facility] [address] [place] [address] Dr. Dwight Waters EO # 0.2 103/ul Normal 0.0-0.7 [facility] Comment on above: Performed By: #### C BC #### [facility] [address] [place] [address] Dr. Dwight Waters Eosinophils/100 WBC (Bld) 3.5 % Normal 0.9-7.0 [facility] Comment on above: Performed By: #### C BC #### [facility] [address] [place] [address] Dr. Dwight Waters Erythrocyte distribution width (RBC) [Ratio] 13.0 % Normal 11.0-15.0 [facility] Comment on above: Performed By: #### C BC #### [facility] [address] [place] [address] Dr. Dwigth Waters Hematocrit (Bld) [Volume fraction] 50.0 % Normal 42.0-54.0 [facility] Comment on above: Performed By: #### C BC #### [facility] [address] [place] [address] Dr. Dwight Waters Hemoglobin (Bld) [Mass/Vol] 16.0 g/dL Normal 14.0-18.0 [facility] Comment on above: Performed By: #### C BC #### [facility] [address] [place] [address] Dr. Dwight Waters IG # 0.02 10e3/ul Normal 0.00-0.03 [facility] Comment on above: Performed By: #### C BC #### [facility] [address] [place] [address] Dr. Dwight Waters IG % 0.3 % Normal 0.0-0.5 [facility] Comment on above: Performed By: #### C BC #### [facility] [address] [place] [address] Dr. Dwight Waters LYMPH # 1.8 103/ul Normal 1.2-3.8 [facility] Comment on above: Performed By: #### C BC #### [facility] [address] [place] [address] Dr. Dwight Waters Lymphocytes/100 WBC (Bld) 26.5 % Normal 20.5-60.0 [facility] Comment on above: Performed By: #### C BC #### [facility] [address] [place] [address] Dr. Dwight Waters MANUAL DIFF REQ NO Normal [facility] Comment on above: Performed By: #### C BC #### [facility] [address] [place] [address] Dr. Dwight Waters MCH (RBC) [Entitic mass] 28.1 pg Normal 25.9-34.0 [facility] Comment on above: Performed By: #### C BC #### [facility] [address] [place] [address] Dr. Dwight Waters MCHC (RBC) [Mass/Vol] 32.0 g/dL Normal 29.9-35.2 [facility] Comment on above: Performed By: #### C BC #### [facility] [address] [place] [address] Dr. Dwihgt Waters MCV (RBC) [Entitic vol] 87.9 fL Normal 80.0-94.0 [facility] Comment on above: Performed By: #### C BC #### [facility] [address] [place] [address] Dr. Dwight Waters MONO # 0.5 103/ul Normal 0.3-0.8 [facility] Comment on above: Performed By: #### C BC #### [facility] [address] [place] [address] Dr. Dwight Waters Monocytes/100 WBC (Bld) 8.1 % Normal 1.7-12.0 [facility] Comment on above: Performed By: #### C BC #### [facility] [address] [place] [address] Dr. Dwight Waters NEUT # 4.0 103/ul Normal 1.4-6.5 [facility] Comment on above: Performed By: #### C BC #### [facility] [address] [place] [address] Dr. Dwight Waters Neutrophils/100 WBC (Bld) 60.8 % Normal 43.0-75.0 [facility] Comment on above: Performed By: #### C BC #### [facility] [address] [place] [address] Dr. Dwight Waters Platelet mean volume (Bld) [Entitic vol] 9.4 fL Critically low 9.5-13.5 [facility] Comment on above: Performed By: #### C BC #### [facility] [address] [place] [address] Dr. Dwight Waters PLT 265 103/ul Normal 150-450 [facility] Comment on above: Performed By: #### C BC #### [facility] [address] [place] [address] Dr. Dwight Waters RBC 5.69 106/ul Normal 4.70-6.10 [facility] Comment on above: Performed By: #### C BC #### [facility] [address] [place] [address] Dr. Dwight Waters WBC 6.6 103/ul Normal 4.0-11.0 [facility] Comment on above: Performed By: #### C BC #### [facility] [address] [place] [address] Dr. Dwight Waters GGTon 09-15-2022 Gamma glutamyl transferase [Catalytic activity/Vol] 23 U/L Normal 15-85 [facility] Comment on above: Performed By: #### U RTPCR #### [facility] [address] [place] [address] Dr. Dwight Waters MAGNESIUMon 09-15-2022 Magnesium [Mass/Vol] 1.8 mg/dL Normal 1.8-2.4 [facility] Comment on above: Performed By: #### U RTPCR #### [facility] [address] [place] [address] Dr. Dwight Waters RENAL FUNCTION PANELon 09-15 Albumin [Mass/Vol] 4.1 g/dL Normal 3.4-5.0 [facility] Comment on above: Performed By: #### C BC #### [facility] [address] [place] [address] Dr. Dwight Waters Calcium [Mass/Vol] 9.3 mg/dL Normal 8.5-10.1 [facility] Comment on above: Performed By: #### C BC #### [facility] [address] [place] [address] Dr. Dwight Waters Chloride [Moles/Vol] 107 mmol/L Normal 98-107 [facility] Comment on above: Performed By: #### C BC #### [facility] [address] [place] [address] Dr. Dwight Waters CO2 [Moles/Vol] 25.6 mmol/L Normal 21.0-32.0 [facility] Comment on above: Performed By: #### C BC #### [facility] [address] [place] [address] Dr. Dwight Waters Creatinine [Mass/Vol] 1.01 mg/dL Normal 0.70-1.30 [facility] Comment on above: Performed By: #### C BC #### [facility] [address] [place] [address] Dr. Dwight Waters EGFR-AF FAROESE >60 Normal >=60 [facility] Comment on above: Performed By: #### C BC #### [facility] [address] [place] [address] Dr. Dwight Waters EGFR-NON AF FAROESE >60 Normal >=60 [facility] Comment on above: Performed By: #### C BC #### [facility] [address] [address] [address] Dwight Waters Glucose [Mass/Vol] 119 mg/dL Critically high 74-106 [facility] Comment on above: Performed By: #### C BC #### [facility] [address] [address] [address] Dwight Waters Phosphate [Mass/Vol] 2.8 mg/dL Normal 2.6-4.7 [facility] Comment on above: Performed By: #### C BC #### [facility] [address] [address] [address] Dwight Waters Potassium [Moles/Vol] 4.0 mmol/L Normal 3.5-5.1 [facility] Comment on above: Performed By: #### C BC #### [facility] [address] [place] [address] Dr. Dwight Waters Sodium [Moles/Vol] 141 mmol/L Normal 136-145 [facility] Comment on above: Performed By: #### C BC #### [facility] [address] [place] [address] Dr. Dwight Waters Urea nitrogen [Mass/Vol] 15.0 mg/dL Normal 7.0-18.0 [facility] Comment on above: Performed By: #### C BC #### [facility] [address] [address] [address] Dwight Waters SGOTon 09-15-2022 AST [Catalytic activity/Vol] 18 U/L Normal 15-37 [facility] Comment on above: Performed By: #### U RTPCR #### [facility] [address] [place] [address] Dr. Dwight OLVERAPTon 09-15-2022 ALT [Catalytic activity/Vol] 32 U/L Normal 16-63 [facility] Comment on above: Performed By: #### C BC #### [facility] [address] [address] [address] Dwight Waters URINE T PROTEIN CREAT RATIOo n 09-15-2022 Protein (U) [Mass/Vol] 14.1 mg/dL Critically high <=12.0 [facility] Comment on above: Performed By: #### U RTPCR #### [facility] [address] [address] [address] Dwight Waters UR PROT CREAT RAT 0.14 Normal [facility] Comment on above: Performed By: #### U RTPCR #### [facility] [address] [address] [address] Dwight Waters URINE CREAT 98.89 mg/dL Normal 20.00-300.00 [facility] Comment on above: Performed By: #### U RTPCR #### [facility] [address] [place] [address] Dr. Dwight Waters CAROTID ART BILon 022 [...] MÓNICA JIMENEZ Date: 2022-08-28 13:20 Normal [facility] FK506 (TACROLIMUS) WHOLE BLO ODon 08-17-2022 Tacrolimus (FK506), Blood 9.9 ng/mL Normal 2.0-20.0 [facility] Comment on above: Result Comment: Trou gh (immediately following transplant) 15.0 . Trough (steady state, 2 weeks or more after transplant): 3.0 - 8.0 . Performed by LC-MS/MS technology. Performed By: #### F [id number] #### [facility] [address] [place] [address] Dr. Dwight Waters BK VIRUS PCR QUANTon 022 BKV DNA QUANT PCR PLASMA Negative Normal Negative [facility] Comment on above: Result Comment: No B K DNA detected. . The linear range of the assay is 22 - 100,000,000 IU/mL. Performed By: #### U RTPCR #### [facility] [address] [place] [address] Dr. Dwight Waters Log10 BKV DNA Plasma Normal [facility] Comment on above: Performed By: #### U RTPCR #### [facility] [address] [place] [address] Dr. Dwight Waters ALBUMINon 08-14-2022 Albumin [Mass/Vol] 4.2 g/dL Normal 3.4-5.0 [facility] Comment on above: Performed By: #### F [id number] #### [facility] [address] [place] [address] Dr. Dwight Waters ALKALINE PHOSPHAon ALP [Catalytic activity/Vol] 92 U/L Normal 46-116 [facility] Comment on above: Performed By: #### C BC #### [facility] [address] [place] [address] Dr. Dwight Waters BILIRUBIN CONJUGATED (DIRECT )on 08-14-2022 BILI, CONJUGATED 0.3 mg/dL Critically high 0.0-0.2 [facility] Comment on above: Performed By: #### F [id number] #### [facility] [address] [place] [address] Dr. Dwight Waters BILIRUBIN TOTALon 08-14-2022 Bilirubin [Mass/Vol] 1.5 mg/dL Critically high 0.2-1.0 [facility] Comment on above: Performed By: #### F [id number] #### [facility] [address] [place] [address] Dr. Dwight Waters BUNon 08-14-2022 Urea nitrogen [Mass/Vol] 11.0 mg/dL Normal 7.0-18.0 [facility] Comment on above: Performed By: #### C BC #### [facility] [address] [place] [address] Dr. Dwight Waters CALCIUMon 08-14-2022 Calcium [Mass/Vol] 9.4 mg/dL Normal 8.5-10.1 [facility] Comment on above: Performed By: #### F [id number] #### [facility] [address] [address] [address] Dwight Waters CBC AUTO DIFFon 08-14-2022 BASO # 0.0 103/ul Normal 0.0-0.1 [facility] Comment on above: Performed By: #### C MP #### [facility] [address] [place] [address] Dr. Dwight Waters Basophils/100 WBC (Bld) 0.5 % Normal 0.2-2.0 [facility] Comment on above: Performed By: #### C MP #### [facility] [address] [place] [address] Dr. Dwight Waters EO # 0.2 103/ul Normal 0.0-0.7 [facility] Comment on above: Performed By: #### C MP #### [facility] [address] [place] [address] Dr. Dwight Waters Eosinophils/100 WBC (Bld) 2.6 % Normal 0.9-7.0 [facility] Comment on above: Performed By: #### C MP #### [facility] [address] [place] [address] Dr. Dwight Waters Erythrocyte distribution width (RBC) [Ratio] 13.1 % Normal 11.0-15.0 [facility] Comment on above: Performed By: #### C MP #### [facility] [address] [place] [address] Dr. Dwight Waters Hematocrit (Bld) [Volume fraction] 47.0 % Normal 42.0-54.0 [facility] Comment on above: Performed By: #### C MP #### [facility] [address] [place] [address] Dr. Dwight Waters Hemoglobin (Bld) [Mass/Vol] 15.3 g/dL Normal 14.0-18.0 [facility] Comment on above: Performed By: #### C MP #### [facility] [address] [place] [address] Dr. Dwight Waters IG # 0.01 10e3/ul Normal 0.00-0.03 [facility] Comment on above: Performed By: #### C MP #### [facility] [address] [place] [address] Dr. Dwight Waters IG % 0.1 % Normal 0.0-0.5 [facility] Comment on above: Performed By: #### C MP #### [facility] [address] [place] [address] Dr. Dwight Waters LYMPH # 2.3 103/ul Normal 1.2-3.8 [facility] Comment on above: Performed By: #### C MP #### [facility] [address] [place] [address] Dr. Dwight Waters Lymphocytes/100 WBC (Bld) 29.8 % Normal 20.5-60.0 [facility] Comment on above: Performed By: #### C MP #### [facility] [address] [place] [address] Dr. Dwight Waters MANUAL DIFF REQ NO Normal [facility] Comment on above: Performed By: #### C MP #### [facility] [address] [place] [address] Dr. Dwight Waters MCH (RBC) [Entitic mass] 28.2 pg Normal 25.9-34.0 [facility] Comment on above: Performed By: #### C MP #### [facility] [address] [place] [address] Dr. Dwight Waters MCHC (RBC) [Mass/Vol] 32.6 g/dL Normal 29.9-35.2 [facility] Comment on above: Performed By: #### C MP #### [facility] [address] [place] [address] Dr. Dwight Waters MCV (RBC) [Entitic vol] 86.7 fL Normal 80.0-94.0 [facility] Comment on above: Performed By: #### C MP #### [facility] [address] [place] [address] Dr. Dwight Waters MONO # 0.7 103/ul Normal 0.3-0.8 [facility] Comment on above: Performed By: #### C MP #### [facility] [address] [address] [address] Dwight Waters Monocytes/100 WBC (Bld) 8.5 % Normal 1.7-12.0 [facility] Comment on above: Performed By: #### C MP #### [facility] [address] [place] [address] Dr. Dwight Waters NEUT # 4.5 103/ul Normal 1.4-6.5 [facility] Comment on above: Performed By: #### C MP #### [facility] [address] [place] [address] Dr. Dwight Waters Neutrophils/100 WBC (Bld) 58.5 % Normal 43.0-75.0 [facility] Comment on above: Performed By: #### C MP #### [facility] [address] [place] [address] Dr. Dwight Waters Platelet mean volume (Bld) [Entitic vol] 9.7 fL Normal 9.5-13.5 [facility] Comment on above: Performed By: #### C MP #### [facility] [address] [place] [address] Dr. Dwight Waters PLT 266 103/ul Normal 150-450 [facility] Comment on above: Performed By: #### C MP #### [facility] [address] [place] [address] Dr. Dwight Waters RBC 5.42 106/ul Normal 4.70-6.10 [facility] Comment on above: Performed By: #### C MP #### [facility] [address] [place] [address] Dr. Dwight Waters WBC 7.6 103/ul Normal 4.0-11.0 [facility] Comment on above: Performed By: #### C MP #### [facility] [address] [place] [address] Dr. Dwight Waters CHLORIDEon 08-14-2022 Chloride [Moles/Vol] 104 mmol/L Normal 98-107 [facility] Comment on above: Performed By: #### C BC #### [facility] [address] [place] [address] Dr. Dwight Waters CO2on 08-14-2022 CO2 [Moles/Vol] 27.9 mmol/L Normal 21.0-32.0 [facility] Comment on above: Performed By: #### C BC #### [facility] [address] [place] [address] Dr. Dwight Waters CREATININEon 08-14-2022 Creatinine [Mass/Vol] 1.08 mg/dL Normal 0.70-1.30 [facility] Comment on above: Performed By: #### C BC #### [facility] [address] [place] [address] Dr. Dwight Waters EGFR-AF FAROESE >60 Normal >=60 [facility] Comment on above: Performed By: #### C BC #### [facility] [address] [place] [address] Dr. Dwight Waters EGFR-NON AF FAROESE >60 Normal >=60 [facility] Comment on above: Performed By: #### C BC #### [facility] [address] [place] [address] Dr. Dwight Waters GGTon 08-14-2022 Gamma glutamyl transferase [Catalytic activity/Vol] 24 U/L Normal 15-85 [facility] Comment on above: Performed By: #### F [id number] #### [facility] [address] [place] [address] Dr. Dwight Waters GLUCOSE BLOODon 08-14-2022 Glucose [Mass/Vol] 111 mg/dL Critically high 74-[address] [facility] Comment on above: Performed By: #### C BC #### [facility] [address] [place] [address] Dr. Dwight Waters MAGNESIUMon 08-14-2022 Magnesium [Mass/Vol] 1.4 mg/dL Critically low 1.8-2.4 [facility] Comment on above: Performed By: #### C BC #### [facility] [address] [place] [address] Dr. Dwight Waters NAon 08-14-2022 Sodium [Moles/Vol] 140 mmol/L Normal 136-145 [facility] Comment on above: Performed By: #### F [id number] #### [facility] [address] [place] [address] Dr. Dwight Waters PHOSPHORUSon 08-14-2022 Phosphate [Mass/Vol] 3.1 mg/dL Normal 2.6-4.7 [facility] Comment on above: Performed By: #### C BC #### [facility] [address] [place] [address] Dr. Dwight Waters POTASSIUMon 08-14-2022 Potassium [Moles/Vol] 3.5 mmol/L Normal 3.5-5.1 [facility] Comment on above: Performed By: #### C BC #### [facility] [address] [place] [address] Dr. Dwight Waters SGOTon 08-14-2022 AST [Catalytic activity/Vol] 17 U/L Normal 15-37 [facility] Comment on above: Performed By: #### F [id number] #### [facility] [address] [place] [address] Dr. Dwight Waters SGPTon 08-14-2022 ALT [Catalytic activity/Vol] 22 U/L Normal 16-63 [facility] Comment on above: Performed By: #### F [id number] #### [facility] [address] [place] [address] Dr. Dwight Waters URINE T PROTEIN CREAT RATIOo n 08-14-2022 Protein (U) [Mass/Vol] 10.7 mg/dL Normal <=12.0 [facility] Comment on above: Performed By: #### F [id number] #### [facility] [address] [place] [address] Dr. Dwight Waters UR PROT CREAT RAT 0.10 Normal [facility] Comment on above: Performed By: #### F [id number] #### [facility] [address] [place] [address] Dr. Dwight Waters URINE CREAT 104.28 mg/dL Normal 20.00-300.00 [facility] Comment on above: Performed By: #### F [id number] #### [facility] [address] [address] [address] Dwight Waters NEPHROSTOMY TUBE REMOVALon 0 [...] Assisting physician present for entire procedure: yes [facility] Radiology Study observation (narrative) [facility] FK506 (TACROLIMUS) WHOLE BLO ODon 07-06-2022 Tacrolimus (FK506), Blood 9.5 ng/mL Normal 2.0-20.0 [facility] Comment on above: Result Comment: Trou gh (immediately following transplant) 15.0 . Trough (steady state, 2 weeks or more after transplant): 3.0 - 8.0 . Performed by LC-MS/MS technology. Performed By: #### C MP #### [facility] [address] [address] [address] Dwight Waters ALBUMINon 07-03-2022 Albumin [Mass/Vol] 3.7 g/dL Normal 3.4-5.0 [facility] Comment on above: Performed By: #### U RTPCR #### [facility] [address] [place] [address] Dr. Dwight Waters ALKALINE PHOSPHAon ALP [Catalytic activity/Vol] 76 U/L Normal 46-116 [facility] Comment on above: Performed By: #### U RTPCR #### [facility] [address] [place] [address] Dr. Dwigth Waters BILIRUBIN CONJUGATED (DIRECT )on 07-03-2022 BILI, CONJUGATED 0.3 mg/dL Critically high 0.0-0.2 [facility] Comment on above: Performed By: #### C BC #### [facility] [address] [place] [address] Dr. Dwight Waters BILIRUBIN TOTALon 07-03-2022 Bilirubin [Mass/Vol] 1.4 mg/dL Critically high 0.2-1.0 [facility] Comment on above: Performed By: #### C BC #### [facility] [address] [place] [address] Dr. Dwight Waters BUNon 07-03-2022 Urea nitrogen [Mass/Vol] 15.0 mg/dL Normal 7.0-18.0 [facility] Comment on above: Performed By: #### C BC #### [facility] [address] [place] [address] Dr. Dwight Waters CALCIUMon 07-03-2022 Calcium [Mass/Vol] 9.4 mg/dL Normal 8.5-10.1 [facility] Comment on above: Performed By: #### U RTPCR #### [facility] [address] [place] [address] Dr. Dwight Waters CBC AUTO DIFFon 07-03-2022 BASO # 0.0 103/ul Normal 0.0-0.1 [facility] Comment on above: Performed By: #### U RTPCR #### [facility] [address] [place] [address] Dr. Dwight Waters Basophils/100 WBC (Bld) 0.6 % Normal 0.2-2.0 [facility] Comment on above: Performed By: #### U RTPCR #### [facility] [address] [place] [address] Dr. Dwight Waters EO # 0.2 103/ul Normal 0.0-0.7 [facility] Comment on above: Performed By: #### U RTPCR #### [facility] [address] [place] [address] Dr. Dwight Waters Eosinophils/100 WBC (Bld) 3.5 % Normal 0.9-7.0 [facility] Comment on above: Performed By: #### U RTPCR #### [facility] [address] [place] [address] Dr. Dwight Waters Erythrocyte distribution width (RBC) [Ratio] 12.9 % Normal 11.0-15.0 [facility] Comment on above: Performed By: #### U RTPCR #### [facility] [address] [place] [address] Dr. Dwight Waters Hematocrit (Bld) [Volume fraction] 44.2 % Normal 42.0-54.0 [facility] Comment on above: Performed By: #### U RTPCR #### [facility] [address] [place] [address] Dr. Dwight Waters Hemoglobin (Bld) [Mass/Vol] 14.6 g/dL Normal 14.0-18.0 [facility] Comment on above: Performed By: #### U RTPCR #### [facility] [address] [place] [address] Dr. Dwight Waters IG # 0.02 10e3/ul Normal 0.00-0.03 [facility] Comment on above: Performed By: #### U RTPCR #### [facility] [address] [place] [address] Dr. Dwight Waters IG % 0.3 % Normal 0.0-0.5 [facility] Comment on above: Performed By: #### U RTPCR #### [facility] [address] [place] [address] Dr. Dwight Waters LYMPH # 2.0 103/ul Normal 1.2-3.8 [facility] Comment on above: Performed By: #### U RTPCR #### [facility] [address] [place] [address] Dr. Dwight Waters Lymphocytes/100 WBC (Bld) 28.4 % Normal 20.5-60.0 [facility] Comment on above: Performed By: #### U RTPCR #### [facility] [address] [place] [address] Dr. Dwight Waters MANUAL DIFF REQ NO Normal [facility] Comment on above: Performed By: #### U RTPCR #### [facility] [address] [place] [address] Dr. Dwight Waters MCH (RBC) [Entitic mass] 28.6 pg Normal 25.9-34.0 [facility] Comment on above: Performed By: #### U RTPCR #### [facility] [address] [place] [address] Dr. Dwight Waters MCHC (RBC) [Mass/Vol] 33.0 g/dL Normal 29.9-35.2 [facility] Comment on above: Performed By: #### U RTPCR #### [facility] [address] [place] [address] Dr. Dwight Waters MCV (RBC) [Entitic vol] 86.7 fL Normal 80.0-94.0 [facility] Comment on above: Performed By: #### U RTPCR #### [facility] [address] [place] [address] Dr. Dwight Waters MONO # 0.6 103/ul Normal 0.3-0.8 [facility] Comment on above: Performed By: #### U RTPCR #### [facility] [address] [place] [address] Dr. Dwight Waters Monocytes/100 WBC (Bld) 9.1 % Normal 1.7-12.0 [facility] Comment on above: Performed By: #### U RTPCR #### [facility] [address] [place] [address] Dr. Dwight Waters NEUT # 4.0 103/ul Normal 1.4-6.5 [facility] Comment on above: Performed By: #### U RTPCR #### [facility] [address] [address] [address] Dwight Waters Neutrophils/100 WBC (Bld) 58.1 % Normal 43.0-75.0 [facility] Comment on above: Performed By: #### U RTPCR #### [facility] [address] [address] [address] Dwight Waters Platelet mean volume (Bld) [Entitic vol] 9.5 fL Normal 9.5-13.5 [facility] Comment on above: Performed By: #### U RTPCR #### [facility] [address] [address] [address] Dwight Waters PLT 292 103/ul Normal 150-450 [facility] Comment on above: Performed By: #### U RTPCR #### [facility] [address] [place] [address] Dr. Dwight Waters RBC 5.10 106/ul Normal 4.70-6.10 [facility] Comment on above: Performed By: #### U RTPCR #### [facility] [address] [place] [address] Dr. Dwight Waters WBC 6.9 103/ul Normal 4.0-11.0 [facility] Comment on above: Performed By: #### U RTPCR #### [facility] [address] [place] [address] Dr. Dwight Waters CHLORIDEon 07-03-2022 Chloride [Moles/Vol] 108 mmol/L Critically high 98-107 [facility] Comment on above: Performed By: #### C BC #### [facility] [address] [place] [address] Dr. Dwight Waters CO2on 07-03-2022 CO2 [Moles/Vol] 25.2 mmol/L Normal 21.0-32.0 [facility] Comment on above: Performed By: #### C BC #### [facility] [address] [place] [address] Dr. Dwight Waters CREATININEon 07-03-2022 Creatinine [Mass/Vol] 1.03 mg/dL Normal 0.70-1.30 [facility] Comment on above: Performed By: #### U RTPCR #### [facility] [address] [place] [address] Dr. Dwight Waters EGFR-AF FAROESE >60 Normal >=60 [facility] Comment on above: Performed By: #### U RTPCR #### [facility] [address] [place] [address] Dr. Dwight Waters EGFR-NON AF FAROESE >60 Normal >=60 [facility] Comment on above: Performed By: #### U RTPCR #### [facility] [address] [place] [address] Dr. Dwight Waters GGTon 07-03-2022 Gamma glutamyl transferase [Catalytic activity/Vol] 31 U/L Normal 15-85 [facility] Comment on above: Performed By: #### U RTPCR #### [facility] [address] [place] [address] Dr. Dwight Waters GLUCOSE BLOODon 07-03-2022 Glucose [Mass/Vol] 119 mg/dL Critically high 74-[address] [facility] Comment on above: Performed By: #### U RTPCR #### [facility] [address] [place] [address] Dr. Dwight Waters MAGNESIUMon 07-03-2022 Magnesium [Mass/Vol] 1.4 mg/dL Critically low 1.8-2.4 [facility] Comment on above: Performed By: #### C BC #### [facility] [address] [place] [address] Dr. Dwight Waters NAon 07-03-2022 Sodium [Moles/Vol] 142 mmol/L Normal 136-145 [facility] Comment on above: Performed By: #### C MP #### [facility] [address] [place] [address] Dr. Dwight Waters PHOSPHORUSon 07-03-2022 Phosphate [Mass/Vol] 3.4 mg/dL Normal 2.6-4.7 [facility] Comment on above: Performed By: #### C BC #### [facility] [address] [place] [address] Dr. Dwight Waters POTASSIUMon 07-03-2022 Potassium [Moles/Vol] 4.1 mmol/L Normal 3.5-5.1 [facility] Comment on above: Performed By: #### C BC #### [facility] [address] [address] [address] Dwight Waters SGOTon 07-03-2022 AST [Catalytic activity/Vol] 14 U/L Critically low 15-37 [facility] Comment on above: Performed By: #### C BC #### [facility] [address] [address] [address] Dwight Waters SGPTon 07-03-2022 ALT [Catalytic activity/Vol] 25 U/L Normal 16-63 [facility] Comment on above: Performed By: #### C BC #### [facility] [address] [address] [address] Dwight Waters US KIDNEYSon 07-03-2022 US KIDNEYS Ultrasound kidneys, bilateral HISTORY: Transplant of kidney , pain in the right lower quadrant COMPARISON: None. TECHNIQUE: Transabdominal ultrasound imaging of both kidneys was performed. FINDINGS: The ione kidneys are diffusely echogenic and atrophic with cortical thinning. The right kidney measures 8.3 x 3.5 x 4.07 m and the left measures 9.9 x 3.8 x 3.6 cm. No hydronephrosis of the ione kidneys. There is a renal transplant in [...] stone involving the renal transplant. 2. Atrophic ione kidneys. 3. Normal bladder. Electronically authenticated by: ARCELIA PIZARRO Date: 2022-07-03 17:[address] [facility] [address] Abdomen and Pelvis WO con traston 06-27-2022 IMPRESSION: 1. Both ione kidneys are atrophic with improvement in right-sided [...] Adrenals: Adrenal glands are unremarkable. Kidneys: Both ione kidneys are atrophic. Interval improvement in right ione kidney hydronephrosis since May 15, 2022. Status [...] Adrenals: Adrenal glands are unremarkable. Kidneys: Both ione kidneys are atrophic. Interval improvement in right ione kidney hydronephrosis since May 15, 2022. Status [...] aggressive osseous lesions. IMPRESSION IMPRESSION: 1. Both ione kidneys are atrophic with improvement in right-sided hydronephrosis since May 15, 2022. 2. 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 No hydronephrosis. No discrete perinephric collection. 3. Partially imaged postsurgical changes related to prior liver transplant. 4. The bladder is decompressed, limiting evaluation. [facility] Radiology Study observation (narrative) [facility] CT Abdomen and Pelvis WO con trastOrdered By: Gera Lu on 06-27-2022 [facility] Work Phone: CBC AUTO DIFFon 06-18-2022 BASO # 0.0 103/ul Normal 0.0-0.1 [facility] Comment on above: Performed By: #### U RTPCR #### [facility] [address] [place] [address] Dr. Dwight Waters Basophils/100 WBC (Bld) 0.5 % Normal 0.2-2.0 [facility] Comment on above: Performed By: #### U RTPCR #### [facility] [address] [place] [address] Dr. Dwight Waters EO # 0.2 103/ul Normal 0.0-0.7 [facility] Comment on above: Performed By: #### U RTPCR #### [facility] [address] [place] [address] Dr. Dwight Waters Eosinophils/100 WBC (Bld) 2.3 % Normal 0.9-7.0 [facility] Comment on above: Performed By: #### U RTPCR #### [facility] [address] [place] [address] Dr. Dwight Waters Erythrocyte distribution width (RBC) [Ratio] 12.9 % Normal 11.0-15.0 [facility] Comment on above: Performed By: #### U RTPCR #### [facility] [address] [place] [address] Dr. Dwight Waters Hematocrit (Bld) [Volume fraction] 41.2 % Critically low 42.0-54.0 [facility] Comment on above: Performed By: #### U RTPCR #### [facility] [address] [place] [address] Dr. Dwight Waters Hemoglobin (Bld) [Mass/Vol] 13.3 g/dL Critically low 14.0-18.0 [facility] Comment on above: Performed By: #### U RTPCR #### [facility] [address] [place] [address] Dr. Dwight Waters IG # 0.04 10e3/ul Critically high 0.00-0.03 [facility] Comment on above: Performed By: #### U RTPCR #### [facility] [address] [place] [address] Dr. Dwight Waters IG % 0.5 % Normal 0.0-0.5 [facility] Comment on above: Performed By: #### U RTPCR #### [facility] [address] [place] [address] Dr. Dwight Waters LYMPH # 2.0 103/ul Normal 1.2-3.8 [facility] Comment on above: Performed By: #### U RTPCR #### [facility] [address] [place] [address] Dr. Dwight Waters Lymphocytes/100 WBC (Bld) 22.9 % Normal 20.5-60.0 [facility] Comment on above: Performed By: #### U RTPCR #### [facility] [address] [place] [address] Dr. Dwight Waters MANUAL DIFF REQ NO Normal [facility] Comment on above: Performed By: #### U RTPCR #### [facility] [address] [place] [address] Dr. Dwight Waters MCH (RBC) [Entitic mass] 28.7 pg Normal 25.9-34.0 [facility] Comment on above: Performed By: #### U RTPCR #### [facility] [address] [place] [address] Dr. Dwight Waters MCHC (RBC) [Mass/Vol] 32.3 g/dL Normal 29.9-35.2 [facility] Comment on above: Performed By: #### U RTPCR #### [facility] [address] [place] [address] Dr. Dwight Waters MCV (RBC) [Entitic vol] 88.8 fL Normal 80.0-94.0 [facility] Comment on above: Performed By: #### U RTPCR #### [facility] [address] [place] [address] Dr. Dwight Waters MONO # 0.8 103/ul Normal 0.3-0.8 [facility] Comment on above: Performed By: #### U RTPCR #### [facility] [address] [place] [address] Dr. Dwight Waters Monocytes/100 WBC (Bld) 9.7 % Normal 1.7-12.0 [facility] Comment on above: Performed By: #### U RTPCR #### [facility] [address] [place] [address] Dr. Dwight Waters NEUT # 5.6 103/ul Normal 1.4-6.5 [facility] Comment on above: Performed By: #### U RTPCR #### [facility] [address] [place] [address] Dr. Dwight Waters Neutrophils/100 WBC (Bld) 64.1 % Normal 43.0-75.0 [facility] Comment on above: Performed By: #### U RTPCR #### [facility] [address] [place] [address] Dr. Dwight Waters Platelet mean volume (Bld) [Entitic vol] 10.0 fL Normal 9.5-13.5 [facility] Comment on above: Performed By: #### U RTPCR #### [facility] [address] [place] [address] Dr. Dwight Waters PLT 270 103/ul Normal 150-450 [facility] Comment on above: Performed By: #### U RTPCR #### [facility] [address] [place] [address] Dr. Dwight Waters RBC 4.64 106/ul Critically low 4.70-6.10 [facility] Comment on above: Performed By: #### U RTPCR #### [facility] [address] [place] [address] Dr. Dwight Waters WBC 8.7 103/ul Normal 4.0-11.0 [facility] Comment on above: Performed By: #### U RTPCR #### [facility] [address] [place] [address] Dr. Dwight Waters CULTURE URINEon 06-18-2022 CULTURE URINE Culture Observations : NO GROWTH. Normal [facility] Comment on above: Performed By: #### U RTPCR #### [facility] [address] [place] [address] Dr. Dwight Waters Covid-19 PCR ([facility])on 05-31 SARS-CoV-2 (COVID-19) RNA ESTELITA+probe Ql (Unsp spec) Not detected Normal NOT DETECTED [facility] Comment on above: Result Comment: When diagnostic [...] for this test is supported by the [employer] of Health and Human Service's declaration [...] used). Performed By: #### C BC #### [facility] [address] [place] [address] Dr. Dwight Waters ER URINE PROFILEon Bilirubin Ql (U) Negative Normal NEGATIVE [facility] Comment on above: Performed By: #### U RTPCR #### [facility] [address] [place] [address] Dr. Dwight Waters Clarity (U) CLEAR Normal CLEAR [facility] Comment on above: Performed By: #### U RTPCR #### [facility] [address] [place] [address] Dr. Dwight Waters Color (U) YELLOW Normal YELLOW [facility] Comment on above: Performed By: #### U RTPCR #### [facility] [address] [place] [address] Dr. Dwight Waters ERUAHD A micrscopic examina tion will be performed if indicated. Normal [facility] Comment on above: Performed By: #### U RTPCR #### [facility] [address] [place] [address] Dr. Dwight Waters Glucose Ql (U) Negative Normal NEGATIVE [facility] Comment on above: Performed By: #### U RTPCR #### [facility] [address] [place] [address] Dr. Dwight Waters Hemoglobin Ql (U) LARGE Abnormal NEGATIVE [facility] Comment on above: Performed By: #### U RTPCR #### [facility] [address] [place] [address] Dr. Dwight Waters Ketones Ql (U) Negative Normal NEGATIVE [facility] Comment on above: Performed By: #### U RTPCR #### [facility] [address] [place] [address] Dr. Dwight Waters LEUKOCYTES TRACE Abnormal NEGATIVE [facility] Comment on above: Performed By: #### U RTPCR #### [facility] [address] [place] [address] Dr. Dwight Waters Nitrite Ql (U) Negative Normal NEGATIVE [facility] Comment on above: Performed By: #### U RTPCR #### [facility] [address] [place] [address] Dr. Dwight Waters pH (U) 6.0 [pH] Normal 5-9 [facility] Comment on above: Performed By: #### U RTPCR #### [facility] [address] [place] [address] Dr. Dwight Waters Protein (U) [Mass/Vol] 30 mg/dL Abnormal NEGATIVE/ TRACE [facility] Comment on above: Performed By: #### U RTPCR #### [facility] [address] [place] [address] Dr. Dwight Waters SPEC GRAVITY >=1.030 Abnormal 1.005-<=1.02 5 [facility] Comment on above: Performed By: #### U RTPCR #### [facility] [address] [place] [address] Dr. Dwight Waters UR MICRO IND INDICATED Normal [facility] Comment on above: Performed By: #### U RTPCR #### [facility] [address] [place] [address] Dr. Dwight Waters Urobilinogen Qn (U) 0.2 {Alyssa'U}/dL Normal 0.2 - 1. 0 [facility] Comment on above: Performed By: #### U RTPCR #### [facility] [address] [place] [address] Dr. Dwight Waters PROF 14(COMP METB)on 022 Albumin [Mass/Vol] 3.7 g/dL Normal 3.4-5.0 [facility] Comment on above: Performed By: #### C MP #### [facility] [address] [place] [address] Dr. Dwight Waters Albumin/Globulin [Mass ratio] 0.9 {ratio} Normal [facility] Comment on above: Performed By: #### C MP #### [facility] [address] [place] [address] Dr. Dwight Waters ALP [Catalytic activity/Vol] 80 U/L Normal 46-116 [facility] Comment on above: Performed By: #### C MP #### [facility] [address] [place] [address] Dr. Dwight Waters ALT [Catalytic activity/Vol] 24 U/L Normal 16-63 [facility] Comment on above: Performed By: #### C MP #### [facility] [address] [place] [address] Dr. Dwight Waters Anion gap [Moles/Vol] 12.9 mmol/L Normal [facility] Comment on above: Performed By: #### C MP #### [facility] [address] [place] [address] Dr. Dwight Waters AST [Catalytic activity/Vol] 17 U/L Normal 15-37 [facility] Comment on above: Performed By: #### C MP #### [facility] [address] [place] [address] Dr. Dwight Waters Bilirubin [Mass/Vol] 0.8 mg/dL Normal 0.2-1.0 [facility] Comment on above: Performed By: #### C MP #### [facility] [address] [address] [address] Dwight Waters Calcium [Mass/Vol] 9.4 mg/dL Normal 8.5-10.1 [facility] Comment on above: Performed By: #### C MP #### [facility] [address] [address] [address] Dwight Waters Chloride [Moles/Vol] 106 mmol/L Normal 98-107 [facility] Comment on above: Performed By: #### C MP #### [facility] [address] [address] [address] Dwight Waters CO2 [Moles/Vol] 25.3 mmol/L Normal 21.0-32.0 [facility] Comment on above: Performed By: #### C MP #### [facility] [address] [place] [address] Dr. Dwight Waters Creatinine [Mass/Vol] 1.29 mg/dL Normal 0.70-1.30 [facility] Comment on above: Performed By: #### C MP #### [facility] [address] [place] [address] Dr. Dwight Waters EGFR-AF FAROESE >60 Normal >=60 [facility] Comment on above: Performed By: #### C MP #### [facility] [address] [place] [address] Dr. Dwight Waters EGFR-NON AF FAROESE 59 mL/min/1.73m2 Critically low >=60 [facility] Comment on above: Performed By: #### C MP #### [facility] [address] [place] [address] Dr. Dwight Waters Globulin (S) [Mass/Vol] 4.2 g/dL Normal [facility] Comment on above: Performed By: #### C MP #### [facility] [address] [place] [address] Dr. Dwight Waters Glucose [Mass/Vol] 106 mg/dL Normal 74-106 [facility] Comment on above: Performed By: #### C MP #### [facility] [address] [place], [place] [id number] Dr. Dwight Waters Potassium [Moles/Vol] 4.2 mmol/L Normal 3.5-5.1 [facility] Comment on above: Performed By: #### C MP #### [facility] [address] [place] [address] Dr. Dwight Waters Protein [Mass/Vol] 7.9 g/dL Normal 6.4-8.2 [facility] Comment on above: Performed By: #### C MP #### [facility] [address] [place] [address] Dr. Dwight Waters Sodium [Moles/Vol] 140 mmol/L Normal 136-145 [facility] Comment on above: Performed By: #### C MP #### [facility] [address] [place] [address] Dr. Dwight Waters Urea nitrogen [Mass/Vol] 22.0 mg/dL Critically high 7.0-18.0 [facility] Comment on above: Performed By: #### C MP #### [facility] [address] [place] [address] Dr. Dwight Waters Urea nitrogen/Creatinine [Mass ratio] 17.1 mg/mg Normal [facility] Comment on above: Performed By: #### C MP #### [facility] [address] [place] [address] Dr. Dwight Waters URINE MICROSCOPIC ONLYon BACTERIA TRACE Abnormal NONE SEEN [facility] Comment on above: Performed By: #### U RTPCR #### [facility] [address] [place] [address] Dr. Dwight Waters Bacteria identified Cx Nom (U) INDICATED Normal [facility] Comment on above: Performed By: #### U RTPCR #### [facility] [address] [place] [address] Dr. Dwight Waters CAST NONE SEEN Normal NONE SEEN [facility] Comment on above: Performed By: #### U RTPCR #### [facility] [address] [place] [address] Dr. Dwight Waters Crystals LM Nom (Urine sed) NONE SEEN Normal NONE SEEN [facility] Comment on above: Performed By: #### U RTPCR #### [facility] [address] [place] [address] Dr. Dwight Waters Epithelial cells LM Ql (Urine sed) NONE SEEN Normal NONE SEEN /RARE [facility] Comment on above: Performed By: #### U RTPCR #### [facility] [address] [place] [address] Dr. Dwight Waters MUCOUS NONE SEEN Normal NONE SEEN [facility] Comment on above: Performed By: #### U RTPCR #### [facility] [address] [place] [address] Dr. Dwight Waters RBC 5-10 Abnormal 0-2 [facility] Comment on above: Performed By: #### U RTPCR #### [facility] [address] [place] [address] Dr. Dwight Waters WBC 10-20 Abnormal NONE SEEN [facility] Comment on above: Performed By: #### U RTPCR #### [facility] [address] [place] [address] Dr. Dwight Waters ALLOSCREEN RECIPIENT (POST T X PRA)on 06-13-2022 AB SPECIFICITY CLASS COMMENT Antibody Specificity testing performed by [employer]. cPRA calculation based on identification of HLA antibody specificities at MFI >2000 and/or presence of CREG antibodies. [facility] Comment on above: Some of the reagents used for testing in the Clinical Histocompatibility Laboratory have yet to be approved by the FDA. Our certification by CLIA to perform high complexity tests allows us to use these reagents in the context of a stringent QC program, and obviates the need for FDA approval.Testing performed by the [facility] Clinical Histocompatibility Laboratory. [facility] number: [id number]. CLIA number: [id number], Director: Carlito Merchant, PhD, D([facility]). ANTIBODY SPECIFICITY INTERPRETATION Detected [facility] CLASS I SPECIFICITIES Not detected [facility] CLASS II SPECIFICITIES Not detected [facility] HLA Ab (S) 0 % 0 [facility] EXTRA MICROon 06-13-2022 [facility] URINE CULTUREOrdered By: Jah Upton on 06-13-2022 Bacteria identified Cx Nom (Unsp spec) Growth [facility] Bacteria identified Cx Nom (Unsp spec) 10,000-50,000 CFU/mL Mixed skin shimon [facility] Comment on above: Multiple bacterial m orphotypes present. Suggest appropriate recollection if clinically indicated. [facility] CBC,PLATELETSon 06-12-2022 Erythrocyte distribution width (RBC) [Ratio] 13.0 % 10.9 - 14.3 % [facility] Hematocrit (Bld) [Volume fraction] 43.2 % 39.6 - 48.8 % [facility] Hemoglobin (Bld) [Mass/Vol] 13.9 g/dL 13.4 - 16.8 g/dL [facility] Interpretation and review of laboratory results Normal [facility] MCH (RBC) [Entitic mass] 28.7 pg 26.1 - 33.3 pg [facility] MCHC (RBC) [Mass/Vol] 32.2 g/dL 31.9 - 36.5 g/dL [facility] MCV (RBC) [Entitic vol] 89.1 fL 79.0 - 94.5 fL [facility] Platelet mean volume (Bld) [Entitic vol] 10.5 fL 8.7 - 12.3 fL [facility] Platelets (Bld) [#/Vol] 269 10*3/uL 146 - 337 K/uL [facility] RBC (Bld) [#/Vol] 4.85 10*6/uL [facility] WBC (Bld) [#/Vol] 7.68 10*3/uL 3.73 - 10. 10 K/uL [facility] CHEM 7 (LYTES,BUN,CREA,GLUC) on 06-12-2022 Anion gap [Moles/Vol] 14 mmol/L 7 - 17 mmol/L [facility] Chloride [Moles/Vol] 106 mmol/L 98 - 10 8 mmol/L [facility] CO2 [Moles/Vol] 25 mmol/L 21 - 31 mmol/L [facility] Creatinine [Mass/Vol] 1.26 mg/dL 0.70 - 1.30 mg/dL [facility] GFR/1.73 sq M.predicted CKD-EPI (S/P/Bld) [Vol rate/Area] 69 >=60 mL/min/1.73m 2 [facility] Comment on above: Reported eGFR is bas ed on the CKD-EPI 2020 equation using creatinine, age, and sex. Glucose [Mass/Vol] 83 mg/dL 70 - 99 mg/dL [facility] Osmolality Calc [Osmolality] [facility] Potassium [Moles/Vol] 3.8 mmol/L 3.5 - 5.0 mmol/L [facility] Sodium [Moles/Vol] 141 mmol/L 135 - 145 mmol/L [facility] Urea nitrogen [Mass/Vol] 18 mg/dL 7 - 25 mg/dL [facility] Urea nitrogen/Creatinine [Mass ratio] 14 mg/mg [facility] GGTon 06-12-2022 Gamma glutamyl transferase [Catalytic activity/Vol] 20 U/L 8 - 64 U/L [facility] HEMOGLOBIN [id number] By: Link Roche on 06-12-2022 Average glucose Estimated from glycated hemoglobin (Bld) [Mass/Vol] 126 mg/dL [facility] HbA1c (Bld) [Mass fraction] 6.0 % High 4.7 - 5.6 % [facility] Interpretation and review of laboratory results Abnormal [facility] HEPATIC FUNCTION PANELon Albumin [Mass/Vol] 4.3 g/dL 3.5 - 5.0 g/dL [facility] ALP [Catalytic activity/Vol] 78 U/L 32 - 126 U/L [facility] ALT [Catalytic activity/Vol] 12 U/L 10 - 52 U/L [facility] AST [Catalytic activity/Vol] 16 U/L 10 - 39 U/L [facility] Bilirubin [Mass/Vol] 1.0 mg/dL <1.5 [facility] Bilirubin.direct [Mass/Vol] 0.2 mg/dL <0.3 [facility] Protein [Mass/Vol] 7.5 g/dL 6.4 - 8.3 g/dL [facility] No Panel Informationon 06-12 Interpretation and review of laboratory results Normal [facility] PTH INTACTOrdered By: Marli Lizarraga on 06-12-2022 Interpretation and review of laboratory results Abnormal [facility] Parathyrin.intact [Mass/Vol] 79.7 pg/mL High 14.0 - 72.0 pg/mL [facility] URINALYSIS REFLEX TO CULTURE PERFORMABLEon 06-12-2022 Appearance (U) Clear Clear [facility] Bacteria LM Ql (Urine sed) ABSENT ABSENT [facility] Color (U) Yellow Yellow [facility] Epithelial cells.squamous LM Ql (Urine sed) 1/hpf = 1+ 1/hpf = 1+, 2-5/hpf = 2+, 0/hpf = 0+, ABSENT [facility] Glucose Test strip (U) [Mass/Vol] Negative Negative [facility] Interpretation and review of laboratory results Abnormal [facility] Ketones (U) [Mass/Vol] Trace Abnormal Negative [facility] Leukocyte esterase Test strip Ql (U) Small Abnormal Negative [facility] Nitrite Ql (U) Negative Negative [facility] pH (U) 5.5 [pH] 5.0 - 7.0 [facility] Protein (U) [Mass/Vol] 30 mg/dL Abnormal Negative [facility] RBC (U) [#/Vol] Trace Abnormal Negative [facility] RBC LM.HPF (Urine sed) [#/Area] 0-2 0 - 2 /HPF [facility] Specific gravity (U) [Rel density] 1.026 [facility] Urobilinogen (U) [Mass/Vol] 0.2 E.U./dL 0.2 E.U/dL, 1.0 E.U/dL [facility] WBC LM.HPF (Urine sed) [#/Area] 10-20 Abnormal 0 - 5 /HPF [facility] URINE PROTEIN/CREA RATIO, RA Baljit 06-12-2022 Creatinine (24H U) [Mass/Vol] 231.68 mg/dL [facility] Protein Unsp time (U) [Mass/Vol] 49 mg/dL [facility] Protein/Creatinine (U) [Mass ratio] 0.211 mg/g [facility] FK506 (TACROLIMUS) WHOLE BLO ODon 06-09-2022 Tacrolimus (FK506), Blood 9.8 ng/mL Normal 2.0-20.0 [facility] Comment on above: Result Comment: Trou gh (immediately following transplant) 15.0 . Trough (steady state, 2 weeks or more after transplant): 3.0 - 8.0 . Performed by LC-MS/MS technology. Performed By: #### U RTPCR #### [facility] [address] [place] [address] Dr. Dwight Waters ALBUMINon 06-06-2022 Albumin [Mass/Vol] 3.8 g/dL Normal 3.4-5.0 [facility] Comment on above: Performed By: #### C MP #### [facility] [address] [place] [address] Dr. Dwight Waters ALKALINE PHOSPHAon ALP [Catalytic activity/Vol] 82 U/L Normal 46-116 [facility] Comment on above: Performed By: #### C MP #### [facility] [address] [address] [address] Dwight Waters BILIRUBIN CONJUGATED (DIRECT )on 06-06-2022 BILI, CONJUGATED 0.2 mg/dL Normal 0.0-0.2 [facility] Comment on above: Performed By: #### C BC #### [facility] [address] [place] [address] Dr. Dwight Waters BILIRUBIN TOTALon 06-06-2022 Bilirubin [Mass/Vol] 1.0 mg/dL Normal 0.2-1.0 [facility] Comment on above: Performed By: #### C BC #### [facility] [address] [place] [address] Dr. Dwight Waters BUNon 06-06-2022 Urea nitrogen [Mass/Vol] 18.0 mg/dL Normal 7.0-18.0 [facility] Comment on above: Performed By: #### C BC #### [facility] [address] [place] [address] Dr. Dwight Waters CALCIUMon 06-06-2022 Calcium [Mass/Vol] 9.4 mg/dL Normal 8.5-10.1 [facility] Comment on above: Performed By: #### C MP #### [facility] [address] [place] [address] Dr. Dwight Waters CBC AUTO DIFFon 06-06-2022 BASO # 0.1 103/ul Normal 0.0-0.1 [facility] Comment on above: Performed By: #### U RTPCR #### [facility] [address] [place] [address] Dr. Dwight Waters Basophils/100 WBC (Bld) 0.8 % Normal 0.2-2.0 [facility] Comment on above: Performed By: #### U RTPCR #### [facility] [address] [place] [address] Dr. Dwight Waters EO # 0.3 103/ul Normal 0.0-0.7 [facility] Comment on above: Performed By: #### U RTPCR #### [facility] [address] [place] [address] Dr. Dwight Waters Eosinophils/100 WBC (Bld) 3.3 % Normal 0.9-7.0 [facility] Comment on above: Performed By: #### U RTPCR #### [facility] [address] [place] [address] Dr. Dwight Waters Erythrocyte distribution width (RBC) [Ratio] 12.4 % Normal 11.0-15.0 [facility] Comment on above: Performed By: #### U RTPCR #### [facility] [address] [place], [place] [id number] Dr. Dwight Waters Hematocrit (Bld) [Volume fraction] 45.1 % Normal 42.0-54.0 [facility] Comment on above: Performed By: #### U RTPCR #### [facility] [address] [place] [address] Dr. Dwight Waters Hemoglobin (Bld) [Mass/Vol] 14.4 g/dL Normal 14.0-18.0 [facility] Comment on above: Performed By: #### U RTPCR #### [facility] [address] [place] [address] Dr. Dwight Waters IG # 0.01 10e3/ul Normal 0.00-0.03 [facility] Comment on above: Performed By: #### U RTPCR #### [facility] [address] [place] [address] Dr. Dwight Waters IG % 0.1 % Normal 0.0-0.5 [facility] Comment on above: Performed By: #### U RTPCR #### [facility] [address] [place] [address] Dr. Dwight Waters LYMPH # 2.2 103/ul Normal 1.2-3.8 [facility] Comment on above: Performed By: #### U RTPCR #### [facility] [address] [place] [address] Dr. Dwight Waters Lymphocytes/100 WBC (Bld) 30.0 % Normal 20.5-60.0 [facility] Comment on above: Performed By: #### U RTPCR #### [facility] [address] [place] [address] Dr. Dwight Waters MANUAL DIFF REQ NO Normal [facility] Comment on above: Performed By: #### U RTPCR #### [facility] [address] [place] [address] Dr. Dwight Waters MCH (RBC) [Entitic mass] 28.2 pg Normal 25.9-34.0 [facility] Comment on above: Performed By: #### U RTPCR #### [facility] [address] [place] [address] Dr. Dwight Waters MCHC (RBC) [Mass/Vol] 31.9 g/dL Normal 29.9-35.2 [facility] Comment on above: Performed By: #### U RTPCR #### [facility] [address] [place] [address] Dr. Dwight Waters MCV (RBC) [Entitic vol] 88.3 fL Normal 80.0-94.0 [facility] Comment on above: Performed By: #### U RTPCR #### [facility] [address] [place] [address] Dr. Dwight Waters MONO # 0.6 103/ul Normal 0.3-0.8 [facility] Comment on above: Performed By: #### U RTPCR #### [facility] [address] [place] [address] Dr. Dwight Waters Monocytes/100 WBC (Bld) 8.2 % Normal 1.7-12.0 [facility] Comment on above: Performed By: #### U RTPCR #### [facility] [address] [place] [address] Dr. Dwight Waters NEUT # 4.3 103/ul Normal 1.4-6.5 [facility] Comment on above: Performed By: #### U RTPCR #### [facility] [address] [place] [address] Dr. Dwight Waters Neutrophils/100 WBC (Bld) 57.6 % Normal 43.0-75.0 [facility] Comment on above: Performed By: #### U RTPCR #### [facility] [address] [place] [address] Dr. Dwight Waters Platelet mean volume (Bld) [Entitic vol] 9.7 fL Normal 9.5-13.5 [facility] Comment on above: Performed By: #### U RTPCR #### [facility] [address] [place] [address] Dr. Dwight Waters PLT 297 103/ul Normal 150-450 [facility] Comment on above: Performed By: #### U RTPCR #### [facility] [address] [place] [address] Dr. Dwight Waters RBC 5.11 106/ul Normal 4.70-6.10 [facility] Comment on above: Performed By: #### U RTPCR #### [facility] [address] [place] [address] Dr. Dwight Waters WBC 7.5 103/ul Normal 4.0-11.0 [facility] Comment on above: Performed By: #### U RTPCR #### [facility] [address] [place] [address] Dr. Dwight Waters CHLORIDEon 06-06-2022 Chloride [Moles/Vol] 107 mmol/L Normal 98-107 [facility] Comment on above: Performed By: #### C BC #### [facility] [address] [place] [address] Dr. Dwight Waters CO2on 06-06-2022 CO2 [Moles/Vol] 27.4 mmol/L Normal 21.0-32.0 [facility] Comment on above: Performed By: #### C BC #### [facility] [address] [place] [address] Dr. Dwight Waters CREATININEon 06-06-2022 Creatinine [Mass/Vol] 1.20 mg/dL Normal 0.70-1.30 [facility] Comment on above: Performed By: #### C BC #### [facility] [address] [place] [address] Dr. Dwight Waters EGFR-AF FAROESE >60 Normal >=60 [facility] Comment on above: Performed By: #### C BC #### [facility] [address] [place] [address] Dr. Dwight Waters EGFR-NON AF FAROESE >60 Normal >=60 [facility] Comment on above: Performed By: #### C BC #### [facility] [address] [place] [address] Dr. Dwight Waters GGTon 06-06-2022 Gamma glutamyl transferase [Catalytic activity/Vol] 29 U/L Normal 15-85 [facility] Comment on above: Performed By: #### C BC #### [facility] [address] [place] [address] Dr. Dwight Waters GLUCOSE BLOODon 06-06-2022 Glucose [Mass/Vol] 112 mg/dL Critically high 74-106 [facility] Comment on above: Performed By: #### C BC #### [facility] [address] [place] [address] Dr. Dwight Waters MAGNESIUMon 06-06-2022 Magnesium [Mass/Vol] 1.3 mg/dL Critically low 1.8-2.4 [facility] Comment on above: Performed By: #### C MP #### [facility] [address] [place] [address] Dr. Dwight Waters NAon 06-06-2022 Sodium [Moles/Vol] 141 mmol/L Normal 136-145 [facility] Comment on above: Performed By: #### C MP #### [facility] [address] [place] [address] Dr. Dwight Waters PHOSPHORUSon 06-06-2022 Phosphate [Mass/Vol] 3.1 mg/dL Normal 2.6-4.7 [facility] Comment on above: Performed By: #### C MP #### [facility] [address] [place] [address] Dr. Dwight Waters POTASSIUMon 06-06-2022 Potassium [Moles/Vol] 4.3 mmol/L Normal 3.5-5.1 [facility] Comment on above: Performed By: #### C BC #### [facility] [address] [place] [address] Dr. wDight Waters SGOTon 06-06-2022 AST [Catalytic activity/Vol] 16 U/L Normal 15-37 [facility] Comment on above: Performed By: #### C BC #### [facility] [address] [place] [address] Dr. Dwight Waters SGPTon 06-06-2022 ALT [Catalytic activity/Vol] 50 U/L Normal 16-63 [facility] Comment on above: Performed By: #### C BC #### [facility] [address] [place] [address] Dr. Dwight Waters Bacteria identified Cx Nom ( Bld)on 05-21-2022 Bacteria identified Cx Nom (Unsp spec) NO GROWTH DAY 5 OF 5 [facility] Results may be compr omised due to volume of BACT\ALERT bottle exceeding 10mLs . The optimal blood volume is 8-10 mls per aerobic/anaerobic blood culture bottle. [facility] CALCIUMon 05-20-2022 Calcium [Mass/Vol] 9.1 mg/dL 8.6 - 10. 5 mg/dL [facility] CBC,PLATELETSon 05-20-2022 Erythrocyte distribution width (RBC) [Ratio] 12.5 % 10.9 - 14.3 % [facility] Hematocrit (Bld) [Volume fraction] 37.1 % Low 39.6 - 48.8 % [facility] Hemoglobin (Bld) [Mass/Vol] 12.3 g/dL Low 13.4 - 16.8 g/dL [facility] Interpretation and review of laboratory results Abnormal [facility] MCH (RBC) [Entitic mass] 28.9 pg 26.1 - 33.3 pg [facility] MCHC (RBC) [Mass/Vol] 33.2 g/dL 31.9 - 36.5 g/dL [facility] MCV (RBC) [Entitic vol] 87.3 fL 79.0 - 94.5 fL [facility] Platelet mean volume (Bld) [Entitic vol] 9.9 fL 8.7 - 12.3 fL [facility] Platelets (Bld) [#/Vol] 234 10*3/uL 146 - 337 K/uL [facility] RBC (Bld) [#/Vol] 4.25 10*6/uL Low [facility] WBC (Bld) [#/Vol] 6.31 10*3/uL 3.73 - 10. 10 K/uL [facility] CHEM 7 (LYTES,BUN,CREA,GLUC) on 05-20-2022 Anion gap [Moles/Vol] 15 mmol/L 7 - 17 mmol/L [facility] Chloride [Moles/Vol] 111 mmol/L High 98 - 10 8 mmol/L [facility] CO2 [Moles/Vol] 22 mmol/L 21 - 31 mmol/L [facility] Creatinine [Mass/Vol] 1.10 mg/dL 0.70 - 1.30 mg/dL [facility] GFR/1.73 sq M.predicted CKD-EPI (S/P/Bld) [Vol rate/Area] 81 >=60 mL/min/1.73m 2 [facility] Comment on above: Reported eGFR is bas ed on the CKD-EPI 2020 equation using creatinine, age, and sex. Glucose [Mass/Vol] 92 mg/dL 70 - 99 mg/dL [facility] Interpretation and review of laboratory results Abnormal [facility] Osmolality Calc [Osmolality] 302 [facility] Potassium [Moles/Vol] 4.4 mmol/L 3.5 - 5.0 mmol/L [facility] Sodium [Moles/Vol] 144 mmol/L 135 - 145 mmol/L [facility] Urea nitrogen [Mass/Vol] 18 mg/dL 7 - 25 mg/dL [facility] Urea nitrogen/Creatinine [Mass ratio] 16 mg/mg [facility] MAGNESIUMon 05-20-2022 Interpretation and review of laboratory results Abnormal [facility] Magnesium [Mass/Vol] 1.5 mg/dL Low 1.6 - 2 .6 mg/dL [facility] No Panel Informationon 05-20 Interpretation and review of laboratory results Normal [facility] PHOSPHATE, INORGANICon 05-20 Phosphate [Mass/Vol] 3.3 mg/dL 2.2 - 4 .6 mg/dL [facility] RF Unspecified body region V iews during [...] projections of kidneys, ureters, and bladder. FINDINGS: Line Mechanic images: Line Mechanic radiographs of the abdomen reveal a [...] Contrast refluxes up the ureter to the ione right kidney that is grossly normal appearing. [...] projections of kidneys, ureters, and bladder. FINDINGS: Line Mechanic images: Line Mechanic radiographs of the abdomen reveal a [...] Contrast refluxes up the ureter to the ione right kidney that is grossly normal appearing. [...] reviewed and approved this report. [facility] Radiology Study observation (narrative) [facility] RF Unspecified body region V iews during surgeryOrdered By: Lizz Campos on 05-20-2022 [facility] Work Phone: CALCIUMon 05-19-2022 Calcium [Mass/Vol] 9.2 mg/dL 8.6 - 10. 5 mg/dL [facility] Calcium [Mass/Vol] 8.6 mg/dL 8.6 - 10. 5 mg/dL [facility] CBC,PLATELETSon 05-19-2022 Erythrocyte distribution width (RBC) [Ratio] 12.4 % 10.9 - 14.3 % [facility] Hematocrit (Bld) [Volume fraction] 38.0 % Low 39.6 - 48.8 % [facility] Hemoglobin (Bld) [Mass/Vol] 12.0 g/dL Low 13.4 - 16.8 g/dL [facility] Interpretation and review of laboratory results Abnormal [facility] MCH (RBC) [Entitic mass] 28.6 pg 26.1 - 33.3 pg [facility] MCHC (RBC) [Mass/Vol] 31.6 g/dL Low 31.9 - 36.5 g/dL [facility] MCV (RBC) [Entitic vol] 90.5 fL 79.0 - 94.5 fL [facility] Platelet mean volume (Bld) [Entitic vol] 9.7 fL 8.7 - 12.3 fL [facility] Platelets (Bld) [#/Vol] 199 10*3/uL 146 - 337 K/uL [facility] RBC (Bld) [#/Vol] 4.20 10*6/uL Low [facility] WBC (Bld) [#/Vol] 6.81 10*3/uL 3.73 - 10. 10 K/uL [facility] CHEM 7 (LYTES,BUN,CREA,GLUC) on 05-19-2022 Anion gap [Moles/Vol] 13 mmol/L 7 - 17 mmol/L [facility] Chloride [Moles/Vol] 105 mmol/L 98 - 10 8 mmol/L [facility] CO2 [Moles/Vol] 30 mmol/L 21 - 31 mmol/L [facility] Creatinine [Mass/Vol] 1.39 mg/dL High 0.70 - 1.30 mg/dL [facility] GFR/1.73 sq M.predicted CKD-EPI (S/P/Bld) [Vol rate/Area] 61 >=60 mL/min/1.73m 2 [facility] Comment on above: Reported eGFR is bas ed on the CKD-EPI 2020 equation using creatinine, age, and sex. Glucose [Mass/Vol] 121 mg/dL High 70 - 99 mg/dL [facility] Interpretation and review of laboratory results Abnormal [facility] Osmolality Calc [Osmolality] 303 [facility] Potassium [Moles/Vol] 3.8 mmol/L 3.5 - 5.0 mmol/L [facility] Sodium [Moles/Vol] 144 mmol/L 135 - 145 mmol/L [facility] Urea nitrogen [Mass/Vol] 18 mg/dL 7 - 25 mg/dL [facility] Urea nitrogen/Creatinine [Mass ratio] 13 mg/mg [facility] Anion gap [Moles/Vol] 15 mmol/L 7 - 17 mmol/L [facility] Chloride [Moles/Vol] 106 mmol/L 98 - 10 8 mmol/L [facility] CO2 [Moles/Vol] 24 mmol/L 21 - 31 mmol/L [facility] Creatinine [Mass/Vol] 1.46 mg/dL High 0.70 - 1.30 mg/dL [facility] GFR/1.73 sq M.predicted CKD-EPI (S/P/Bld) [Vol rate/Area] 58 Low >=60 mL/min/1.73m 2 [facility] Comment on above: Reported eGFR is bas ed on the CKD-EPI 2020 equation using creatinine, age, and sex. Glucose [Mass/Vol] 103 mg/dL High 70 - 99 mg/dL [facility] Interpretation and review of laboratory results Abnormal [facility] Osmolality Calc [Osmolality] 298 [facility] Potassium [Moles/Vol] 3.9 mmol/L 3.5 - 5.0 mmol/L [facility] Sodium [Moles/Vol] 141 mmol/L 135 - 145 mmol/L [facility] Urea nitrogen [Mass/Vol] 21 mg/dL 7 - 25 mg/dL [facility] Urea nitrogen/Creatinine [Mass ratio] 14 mg/mg [facility] MAGNESIUMon 05-19-2022 Magnesium [Mass/Vol] 2.0 mg/dL 1.6 - 2 .6 mg/dL [facility] Magnesium [Mass/Vol] 1.7 mg/dL 1.6 - 2 .6 mg/dL [facility] No Panel Informationon 05-19 Interpretation and review of laboratory results Normal [facility] Interpretation and review of laboratory results Normal [facility] PHOSPHATE, INORGANICon 05-19 Phosphate [Mass/Vol] 3.0 mg/dL 2.2 - 4 .6 mg/dL [facility] Phosphate [Mass/Vol] 2.7 mg/dL 2.2 - 4 .6 mg/dL [facility] CALCIUMon 05-18-2022 Calcium [Mass/Vol] 9.1 mg/dL 8.6 - 10. 5 mg/dL [facility] CBC,PLATELETSon 05-18-2022 Erythrocyte distribution width (RBC) [Ratio] 12.5 % 10.9 - 14.3 % [facility] Hematocrit (Bld) [Volume fraction] 37.3 % Low 39.6 - 48.8 % [facility] Hemoglobin (Bld) [Mass/Vol] 11.9 g/dL Low 13.4 - 16.8 g/dL [facility] Interpretation and review of laboratory results Abnormal [facility] MCH (RBC) [Entitic mass] 28.9 pg 26.1 - 33.3 pg [facility] MCHC (RBC) [Mass/Vol] 31.9 g/dL 31.9 - 36.5 g/dL [facility] MCV (RBC) [Entitic vol] 90.5 fL 79.0 - 94.5 fL [facility] Platelet mean volume (Bld) [Entitic vol] 10.1 fL 8.7 - 12.3 fL [facility] Platelets (Bld) [#/Vol] 189 10*3/uL 146 - 337 K/uL [facility] RBC (Bld) [#/Vol] 4.12 10*6/uL Low [facility] WBC (Bld) [#/Vol] 10.19 10*3/uL High 3.73 - 10 .10 K/uL [facility] CHEM 7 (LYTES,BUN,CREA,GLUC) on 05-18-2022 Anion gap [Moles/Vol] 13 mmol/L 7 - 17 mmol/L [facility] Chloride [Moles/Vol] 102 mmol/L 98 - 10 8 [facility] CO2 [Moles/Vol] 26 mmol/L 21 - 31 mmol/L [facility] Creatinine [Mass/Vol] 1.91 mg/dL High 0.70 - 1.30 mg/dL [facility] GFR/1.73 sq M.predicted CKD-EPI (S/P/Bld) [Vol rate/Area] 42 Low >=60 mL/min/1.73m 2 [facility] Comment on above: Reported eGFR is bas ed on the CKD-EPI 2020 equation using creatinine, age, and sex. Glucose [Mass/Vol] 158 mg/dL High 70 - 99 mg/dL [facility] Osmolality Calc [Osmolality] 297 [facility] Potassium [Moles/Vol] 4.0 mmol/L 3.5 - 5.0 mmol/L [facility] Sodium [Moles/Vol] 137 mmol/L 135 - 145 mmol/L [facility] Urea nitrogen [Mass/Vol] 30 mg/dL High 7 - 25 mg/dL [facility] Urea nitrogen/Creatinine [Mass ratio] 16 mg/mg [facility] CHEM 7 (LYTES,BUN,CREA,GLUC) Ordered By: Tamiko Thapa on 05-18-2022 Anion gap [Moles/Vol] 13 mmol/L 7 - 17 mmol/L [facility] Chloride [Moles/Vol] 104 mmol/L 98 - 10 8 mmol/L [facility] CO2 [Moles/Vol] 26 mmol/L 21 - 31 mmol/L [facility] Creatinine [Mass/Vol] 2.96 mg/dL High 0.70 - 1.30 mg/dL [facility] GFR/1.73 sq M.predicted CKD-EPI (S/P/Bld) [Vol rate/Area] 25 Low >=60 mL/min/1.73m 2 [facility] Comment on above: Reported eGFR is bas ed on the CKD-EPI 2020 equation using creatinine, age, and sex. Glucose [Mass/Vol] 136 mg/dL High 70 - 99 mg/dL [facility] Interpretation and review of laboratory results Abnormal [facility] Osmolality Calc [Osmolality] 304 [facility] Potassium [Moles/Vol] 4.2 mmol/L 3.5 - 5.0 mmol/L [facility] Sodium [Moles/Vol] 139 mmol/L 135 - 145 mmol/L [facility] Urea nitrogen [Mass/Vol] 41 mg/dL High 7 - 25 mg/dL [facility] Urea nitrogen/Creatinine [Mass ratio] 14 mg/mg [facility] MAGNESIUMon 05-18-2022 Magnesium [Mass/Vol] 2.2 mg/dL 1.6 - 2 .6 mg/dL [facility] Interpretation and review of laboratory results Normal [facility] Magnesium [Mass/Vol] 1.7 mg/dL 1.6 - 2 .6 mg/dL [facility] No Panel Informationon 05-18 Interpretation and review of laboratory results Abnormal [facility] Interpretation and review of laboratory results Normal [facility] PHOSPHATE, INORGANICon 05-18 Phosphate [Mass/Vol] 2.0 mg/dL Low 2.2 - 4 .6 mg/dL [facility] Interpretation and review of laboratory results Normal [facility] Phosphate [Mass/Vol] 2.8 mg/dL 2.2 - 4 .6 mg/dL [facility] PT,INR,PTTon 05-18-2022 aPTT Coag (PPP) [Time] 31.0 s [facility] INR Coag (Bld) [Relative time] 1.1 {INR} [facility] Interpretation and review of laboratory results Abnormal [facility] PT Coag (PPP) [Time] 14.4 s High [facility] URINE CULTUREOrdered By: Sylvia Campos on 05-18-2022 Bacteria identified Cx Nom (Unsp spec) No Growth [facility] CBC,PLATELETSon 05-17-2022 Erythrocyte distribution width (RBC) [Ratio] 12.8 % 10.9 - 14.3 % [facility] Hematocrit (Bld) [Volume fraction] 42.8 % 39.6 - 48.8 % [facility] Hemoglobin (Bld) [Mass/Vol] 13.3 g/dL Low 13.4 - 16.8 g/dL [facility] Interpretation and review of laboratory results Abnormal [facility] MCH (RBC) [Entitic mass] 28.9 pg 26.1 - 33.3 pg [facility] MCHC (RBC) [Mass/Vol] 31.1 g/dL Low 31.9 - 36.5 g/dL [facility] MCV (RBC) [Entitic vol] 92.8 fL 79.0 - 94.5 fL [facility] Platelet mean volume (Bld) [Entitic vol] 10.3 fL 8.7 - 12.3 fL [facility] Platelets (Bld) [#/Vol] 188 10*3/uL 146 - 337 K/uL [facility] RBC (Bld) [#/Vol] 4.61 10*6/uL [facility] WBC (Bld) [#/Vol] 16.61 10*3/uL High 3.73 - 10 .10 K/uL [facility] CHEM 7 (LYTES,BUN,CREA,GLUC) Ordered By: Kaylah Mc on 05-17-2022 Anion gap [Moles/Vol] 15 mmol/L 7 - 17 mmol/L [facility] Chloride [Moles/Vol] 103 mmol/L 98 - 10 8 mmol/L [facility] CO2 [Moles/Vol] 23 mmol/L 21 - 31 mmol/L [facility] Creatinine [Mass/Vol] 5.95 mg/dL High 0.70 - 1.30 mg/dL [facility] GFR/1.73 sq M.predicted CKD-EPI (S/P/Bld) [Vol rate/Area] 11 Low >=60 mL/min/1.73m 2 [facility] Comment on above: Reported eGFR is bas ed on the CKD-EPI 202 equation using creatinine, age, and sex. Glucose [Mass/Vol] 165 mg/dL High 70 - 99 mg/dL [facility] Interpretation and review of laboratory results Abnormal [facility] Osmolality Calc [Osmolality] 305 [facility] Potassium [Moles/Vol] 4.6 mmol/L 3.5 - 5.0 mmol/L [facility] Sodium [Moles/Vol] 136 mmol/L 135 - 145 mmol/L [facility] Urea nitrogen [Mass/Vol] 52 mg/dL High 7 - 25 mg/dL [facility] Urea nitrogen/Creatinine [Mass ratio] 9 mg/mg [facility] CHEM 7 (LYTES,BUN,CREA,GLUC) Ordered By: Kehinde Gutierrez on 05-17-2022 Anion gap [Moles/Vol] 24 mmol/L High 7 - 17 mmol/L [facility] Chloride [Moles/Vol] 100 mmol/L 98 - 10 8 mmol/L [facility] CO2 [Moles/Vol] 16 mmol/L Low 21 - 31 mmol/L [facility] Creatinine [Mass/Vol] 8.08 mg/dL High 0.70 - 1.30 mg/dL [facility] GFR/1.73 sq M.predicted CKD-EPI (S/P/Bld) [Vol rate/Area] 7 Low >=60 mL/min/1.73m 2 [facility] Comment on above: Reported eGFR is bas ed on the CKD-EPI 1 equation using creatinine, age, and sex. Glucose [Mass/Vol] 164 mg/dL High 70 - 99 mg/dL [facility] Interpretation and review of laboratory results Abnormal [facility] Osmolality Calc [Osmolality] 305 [facility] Potassium [Moles/Vol] 5.0 mmol/L 3.5 - 5.0 mmol/L [facility] Sodium [Moles/Vol] 135 mmol/L 135 - 145 mmol/L [facility] Urea nitrogen [Mass/Vol] 56 mg/dL High 7 - 25 mg/dL [facility] Urea nitrogen/Creatinine [Mass ratio] 7 mg/mg [facility] LAVENDER TOP TUBEon 05-17-20 [facility] MAGNESIUMon 05-17-2022 Interpretation and review of laboratory results Normal [facility] Magnesium [Mass/Vol] 1.8 mg/dL 1.6 - 2 .6 mg/dL [facility] Interpretation and review of laboratory results Normal [facility] Magnesium [Mass/Vol] 1.6 mg/dL 1.6 - 2 .6 mg/dL [facility] No Panel Informationon 05-17 [facility] PHOSPHATE, INORGANICon 05-17 Interpretation and review of laboratory results Abnormal [facility] Phosphate [Mass/Vol] 4.9 mg/dL High 2.2 - 4 .6 mg/dL [facility] PT,INR,PTTon 05-17-2022 aPTT Coag (PPP) [Time] 33.0 s [facility] INR Coag (Bld) [Relative time] 1.3 {INR} High [facility] Interpretation and review of laboratory results Abnormal [facility] PT Coag (PPP) [Time] 15.7 s High [facility] Portable XR Chest Viewson IMPRESSION: [...] IMPRESSION IMPRESSION: No acute findings. [facility] Radiology Study observation (narrative) [facility] Portable XR Chest ViewsOrder ed By: David Sanz on 05-17-2022 [facility] Work Phone: URINALYSISOrdered By: Michael patel Ma on 05-17-2022 Appearance (U) Cloudy Abnormal Clear [facility] Comment on above: Results may be inacc urate due to color interference. Clinical correlation recommended. Bacteria LM Ql (Urine sed) ABSENT ABSENT [facility] Color (U) Red Abnormal Yellow [facility] Comment on above: Results may be inacc urate due to color interference. Clinical correlation recommended. Epithelial cells.squamous LM Ql (Urine sed) ABSENT 1/hpf = 1+, 2-5/hpf = 2+, 0/hpf = 0+, ABSENT [facility] Glucose Test strip (U) [Mass/Vol] Negative Negative [facility] Comment on above: Results may be inacc urate due to color interference. Clinical correlation recommended. Interpretation and review of laboratory results Abnormal [facility] Ketones (U) [Mass/Vol] Trace Abnormal Negative [facility] Comment on above: Results may be inacc urate due to color interference. Clinical correlation recommended. Leukocyte esterase Test strip Ql (U) Large Abnormal Negative [facility] Comment on above: Results may be inacc urate due to color interference. Clinical correlation recommended. Nitrite Ql (U) Negative Negative [facility] Comment on above: Results may be inacc urate due to color interference. Clinical correlation recommended. pH (U) 5.0 [pH] 5.0 - 7.0 [facility] Comment on above: Results may be inacc urate due to color interference. Clinical correlation recommended. Protein (U) [Mass/Vol] mg/dL Abnormal Negative [facility] Comment on above: Results may be inacc urate due to color interference. Clinical correlation recommended. RBC (U) [#/Vol] Large Abnormal Negative [facility] Comment on above: Results may be inacc urate due to color interference. Clinical correlation recommended. RBC LM.HPF (Urine sed) [#/Area] /[HPF] Abnormal 0 - 2 /HPF [facility] Specific gravity (U) [Rel density] 1.016 [facility] Comment on above: Results may be inacc urate due to color interference. Clinical correlation recommended. Urobilinogen (U) [Mass/Vol] 0.2 E.U./dL 0.2 E.U/dL, 1.0 E.U/dL [facility] Comment on above: Results may be inacc urate due to color interference. Clinical correlation recommended. WBC LM.HPF (Urine sed) [#/Area] /[HPF] Abnormal 0 - 5 /HPF [facility] URINE CULTUREOrdered By: Tyler Tiwari on 05-17-2022 Bacteria identified Cx Nom (Unsp spec) No Growth [facility] CBC,PLATELETSon 05-16-2022 Erythrocyte distribution width (RBC) [Ratio] 12.9 % 10.9 - 14.3 % [facility] Hematocrit (Bld) [Volume fraction] 46.5 % 39.6 - 48.8 % [facility] Hemoglobin (Bld) [Mass/Vol] 14.7 g/dL 13.4 - 16.8 g/dL [facility] Interpretation and review of laboratory results Abnormal [facility] MCH (RBC) [Entitic mass] 28.3 pg 26.1 - 33.3 pg [facility] MCHC (RBC) [Mass/Vol] 31.6 g/dL Low 31.9 - 36.5 g/dL [facility] MCV (RBC) [Entitic vol] 89.6 fL 79.0 - 94.5 fL [facility] Platelet mean volume (Bld) [Entitic vol] 10.3 fL 8.7 - 12.3 fL [facility] Platelets (Bld) [#/Vol] 188 10*3/uL 146 - 337 K/uL [facility] RBC (Bld) [#/Vol] 5.19 10*6/uL [facility] WBC (Bld) [#/Vol] 12.55 10*3/uL High 3.73 - 10 .10 K/uL [facility] CHEM 7 (LYTES,BUN,CREA,GLUC) Ordered By: Alma Pena on 05-16-2022 Anion gap [Moles/Vol] 14 mmol/L 7 - 17 mmol/L [facility] Chloride [Moles/Vol] 103 mmol/L 98 - 10 8 mmol/L [facility] CO2 [Moles/Vol] 22 mmol/L 21 - 31 mmol/L [facility] Creatinine [Mass/Vol] 6.09 mg/dL High 0.70 - 1.30 mg/dL [facility] GFR/1.73 sq M.predicted CKD-EPI (S/P/Bld) [Vol rate/Area] 10 Low >=60 mL/min/1.73m 2 [facility] Comment on above: Reported eGFR is bas ed on the CKD-EPI 2020 equation using creatinine, age, and sex. Glucose [Mass/Vol] 134 mg/dL High 70 - 99 mg/dL [facility] Interpretation and review of laboratory results Abnormal [facility] Osmolality Calc [Osmolality] 298 [facility] Potassium [Moles/Vol] 4.9 mmol/L 3.5 - 5.0 mmol/L [facility] Sodium [Moles/Vol] 134 mmol/L Low 135 - 145 mmol/L [facility] Comment on above: Results inconsistent with previous results Urea nitrogen [Mass/Vol] 49 mg/dL High 7 - 25 mg/dL [facility] Urea nitrogen/Creatinine [Mass ratio] 8 mg/mg [facility] CHEM 7 (LYTES,BUN,CREA,GLUC) on 05-16-2022 Anion gap [Moles/Vol] 17 mmol/L 7 - 17 mmol/L [facility] Chloride [Moles/Vol] 106 mmol/L 98 - 10 8 mmol/L [facility] CO2 [Moles/Vol] 22 mmol/L 21 - 31 mmol/L [facility] Creatinine [Mass/Vol] 5.23 mg/dL High 0.70 - 1.30 mg/dL [facility] GFR/1.73 sq M.predicted CKD-EPI (S/P/Bld) [Vol rate/Area] 13 Low >=60 mL/min/1.73m 2 [facility] Comment on above: Reported eGFR is bas ed on the CKD-EPI 2020 equation using creatinine, age, and sex. Glucose [Mass/Vol] 116 mg/dL High 70 - 99 mg/dL [facility] Interpretation and review of laboratory results Abnormal [facility] Osmolality Calc [Osmolality] 305 [facility] Potassium [Moles/Vol] 4.6 mmol/L 3.5 - 5.0 mmol/L [facility] Sodium [Moles/Vol] 140 mmol/L 135 - 145 mmol/L [facility] Urea nitrogen [Mass/Vol] 42 mg/dL High 7 - 25 mg/dL [facility] Urea nitrogen/Creatinine [Mass ratio] 8 mg/mg [facility] EXTRA MICROon 05-16-2022 [facility] LT BLUE TOP TUBEon 2 [facility] LYTES (NA, K, CL) - URINE - RANDOMon 05-16-2022 Chloride (24H U) [Moles/Vol] 68 mmol/L [facility] Potassium (24H U) [Moles/Vol] 36.7 mmol/L [facility] Sodium (24H U) [Moles/Vol] 55 mmol/L [facility] The reference range has not been established for random urine specimens. The test result should be integrated into the clinical context for interpretation. [facility] MAGNESIUMon 05-16-2022 Interpretation and review of laboratory results Normal [facility] Magnesium [Mass/Vol] 1.7 mg/dL 1.6 - 2 .6 mg/dL [facility] NOVEL CORONAVIRUS PCROrdered By: Edson Candelario on 05-16-2022 SARS-CoV-2 (COVID-19) RNA ESTELITA+probe Ql (Unsp spec) Not detected NOT DETECTED [facility] Comment on above: [facility] Negative results [...] for use by authorized laboratories. [facility] No Panel Informationon 05-16 [facility] OSMOLALITY, URINEon 05-16-20 Interpretation and review of laboratory results Normal [facility] Osmolality (U) [Osmolality] 320 mosm/kg [facility] The reference range has not been established for random urine specimens. The test result should be integrated into the clinical context for interpretation. [facility] PROCALCITONINon 05-16-2022 Interpretation and review of laboratory results Normal [facility] Procalcitonin [Mass/Vol] 0.18 ng/mL <0.50 [facility] Comment on above: Procalcitonin is an FDA-approved assay to help manage antibiotic treatment in patients with sepsis/septic shock and lower respiratory tract infections. Specifically, trending procalcitonin in these situations can be used to reduce the duration of antibiotics. Please refer to the Procalcitonin Guide on the Antimicrobial Stewardship Webpage for more guidance on how to use and trend procalcitonin in various clinical settings. [email or web address]/[email or web address]?[email or web address]=/departments/[email or web address]/Documents/[email or web address] onin.docx&action=default&DefaultItemOpen=1 Two common cutoffs associated with bacterial infections are as follows. Respiratory tract infections: >0.25 ng/mL Sepsis/septic shock: >0.5 ng/mL Procalcitonin should not be used alone as a diagnostic tool, however. All procalcitonin results should be interpreted in association with the patients clinical condition and all laboratory findings. [facility] PT,INR,PTTon 05-16-2022 aPTT Coag (PPP) [Time] 30.3 s [facility] INR Coag (Bld) [Relative time] 1.1 {INR} [facility] Interpretation and review of laboratory results Normal [facility] PT Coag (PPP) [Time] 14.1 s [facility] SARS-CoV-2 (COVID-19) RNA NA A+probe Ql (Unsp spec)Ordered By: Edson Candelario on 05-16-2022 Interpretation and review of laboratory results Normal [facility] TACROLIMUS LEVEL, TROUGH (SC E DRUG LEVEL)Ordered By: Mariama Nick on 05-16-2022 Interpretation and review of laboratory results Normal [facility] Tacrolimus (Bld) [Mass/Vol] 4.1 ng/mL Bone Marrow Transplant: 4.0-12.0, Therapeutic: 5.0-15.0 [facility] Method performed is a chemiluminescent microparticle immunoasssay on the [employer] i2000. The range is based on experience at [facility] and users should be aware that target concentrations vary widely depending on concomitant therapy, time post-transplant, and desired degree of immunosuppression. [facility] URINE PROTEIN/CREA RATIO, RA Baljit 05-16-2022 Creatinine (24H U) [Mass/Vol] 59.82 mg/dL [facility] Protein Unsp time (U) [Mass/Vol] 111 mg/dL [facility] Protein/Creatinine (U) [Mass ratio] 1.856 mg/g [facility] US for transplanted kidney amber [...] flow in the transplant kidney. [facility] Radiology Study observation (narrative) [facility] US for transplanted kidney l imitedOrdered By: Rosendo Matute on 05-16-2022 [facility] Work Phone: CBC AND ELECTRONIC DIFFon Basophils (Bld) [#/Vol] 10*3/uL 0.00 - 0.09 K/uL [facility] Basophils/100 WBC (Bld) 0.2 % [facility] Differential cell count method Nom (Bld) Electronic Differential [facility] Eosinophils (Bld) [#/Vol] 10*3/uL 0.00 - 0.48 K/uL [facility] Eosinophils/100 WBC (Bld) 0.0 % [facility] Erythrocyte distribution width (RBC) [Ratio] 12.8 % 10.9 - 14.3 % [facility] Hematocrit (Bld) [Volume fraction] 46.0 % 39.6 - 48.8 % [facility] Hemoglobin (Bld) [Mass/Vol] 14.6 g/dL 13.4 - 16.8 g/dL [facility] Immature granulocytes (Bld) [#/Vol] 0.07 10*3/uL <=0.08 [facility] Immature granulocytes/100 WBC (Bld) 0.4 % [facility] Interpretation and review of laboratory results Abnormal [facility] Lymphocytes (Bld) [#/Vol] 1.49 10*3/uL 0.83 - 3.57 K/uL [facility] Lymphocytes/100 WBC (Bld) 9.4 % [facility] MCH (RBC) [Entitic mass] 28.2 pg 26.1 - 33.3 pg [facility] MCHC (RBC) [Mass/Vol] 31.7 g/dL Low 31.9 - 36.5 g/dL [facility] MCV (RBC) [Entitic vol] 89.0 fL 79.0 - 94.5 fL [facility] Monocytes (Bld) [#/Vol] 1.45 10*3/uL High 0.24 - 0.93 K/uL [facility] Monocytes/100 WBC (Bld) 9.2 % [facility] Neutrophils (Bld) [#/Vol] 12.77 10*3/uL High 1.57 - 6.19 K/uL [facility] Nucleated RBC/100 WBC (Bld) [Ratio] 0.0 % <=0.2 /100 WBC [facility] Platelet mean volume (Bld) [Entitic vol] 9.9 fL 8.7 - 12.3 fL [facility] Platelets (Bld) [#/Vol] 250 10*3/uL 146 - 337 K/uL [facility] RBC (Bld) [#/Vol] 5.17 10*6/uL [facility] Segmented neutrophils/100 WBC (Bld) 80.8 % [facility] WBC (Bld) [#/Vol] 15.81 10*3/uL High 3.73 - 10 .10 K/uL [facility] CBC AUTO DIFFon 05-15-2022 BASO # 0.0 103/ul Normal 0.0-0.1 [facility] Comment on above: Performed By: #### C BC #### [facility] [address] [place] [address] Dr. Dwight Waters Basophils/100 WBC (Bld) 0.3 % Normal 0.2-2.0 [facility] Comment on above: Performed By: #### C BC #### [facility] [address] [place] [address] Dr. Dwight Waters EO # 0.1 103/ul Normal 0.0-0.7 [facility] Comment on above: Performed By: #### C BC #### [facility] [address] [place] [address] Dr. Dwight Waters Eosinophils/100 WBC (Bld) 0.8 % Critically low 0.9-7.0 [facility] Comment on above: Performed By: #### C BC #### [facility] [address] [place] [address] Dr. Dwight Waters Erythrocyte distribution width (RBC) [Ratio] 12.7 % Normal 11.0-15.0 [facility] Comment on above: Performed By: #### C BC #### [facility] [address] [place] [address] Dr. Dwight Waters Hematocrit (Bld) [Volume fraction] 43.5 % Normal 42.0-54.0 [facility] Comment on above: Performed By: #### C BC #### [facility] [address] [place] [address] Dr. Dwight Waters Hemoglobin (Bld) [Mass/Vol] 14.4 g/dL Normal 14.0-18.0 [facility] Comment on above: Performed By: #### C BC #### [facility] [address] [place] [address] Dr. Dwight Waters IG # 0.02 10e3/ul Normal 0.00-0.03 [facility] Comment on above: Performed By: #### C BC #### [facility] [address] [place] [address] Dr. Dwight Waters IG % 0.2 % Normal 0.0-0.5 [facility] Comment on above: Performed By: #### C BC #### [facility] [address] [place] [address] Dr. Dwight Waters LYMPH # 1.5 103/ul Normal 1.2-3.8 [facility] Comment on above: Performed By: #### C BC #### [facility] [address] [place] [address] Dr. Dwight Waters Lymphocytes/100 WBC (Bld) 12.5 % Critically low 20.5-60.0 [facility] Comment on above: Performed By: #### C BC #### [facility] [address] [place] [address] Dr. Dwight Waters MANUAL DIFF REQ NO Normal [facility] Comment on above: Performed By: #### C BC #### [facility] [address] [place] [address] Dr. Dwight Waters MCH (RBC) [Entitic mass] 28.6 pg Normal 25.9-34.0 [facility] Comment on above: Performed By: #### C BC #### [facility] [address] [address] [address] Dwight Waters MCHC (RBC) [Mass/Vol] 33.1 g/dL Normal 29.9-35.2 [facility] Comment on above: Performed By: #### C BC #### [facility] [address] [address] [address] Dwight Waters MCV (RBC) [Entitic vol] 86.3 fL Normal 80.0-94.0 [facility] Comment on above: Performed By: #### C BC #### [facility] [address] [address] [address] Dwight Waters MONO # 1.0 103/ul Critically high 0.3-0.8 [facility] Comment on above: Performed By: #### C BC #### [facility] [address] [place] [address] Dr. Dwight Waters Monocytes/100 WBC (Bld) 8.2 % Normal 1.7-12.0 [facility] Comment on above: Performed By: #### C BC #### [facility] [address] [place] [address] Dr. Dwight Waters NEUT # 9.1 103/ul Critically high 1.4-6.5 [facility] Comment on above: Performed By: #### C BC #### [facility] [address] [place] [address] Dr. Dwight Waters Neutrophils/100 WBC (Bld) 78.0 % Critically high 43.0-75.0 [facility] Comment on above: Performed By: #### C BC #### [facility] [address] [place], [place] [id number] Dr. Dwight Waters Platelet mean volume (Bld) [Entitic vol] 9.8 fL Normal 9.5-13.5 [facility] Comment on above: Performed By: #### C BC #### [facility] [address] [place] [address] Dr. Dwight Waters PLT 251 103/ul Normal 150-450 [facility] Comment on above: Performed By: #### C BC #### [facility] [address] [address] [address] Dwight Waters RBC 5.04 106/ul Normal 4.70-6.10 [facility] Comment on above: Performed By: #### C BC #### [facility] [address] [address] [address] Dwight Waters WBC 11.6 103/ul Critically high 4.0-11.0 [facility] Comment on above: Performed By: #### C BC #### [facility] [address] [address] [address] Dwight Waters CHEM 6 (LYTES, BUN CREA)on 0 05-15-2022 Anion gap [Moles/Vol] 12 mmol/L 7 - 17 mmol/L [facility] Chloride [Moles/Vol] 105 mmol/L 98 - 10 8 mmol/L [facility] CO2 [Moles/Vol] 26 mmol/L 21 - 31 mmol/L [facility] Creatinine [Mass/Vol] 2.85 mg/dL High 0.70 - 1.30 mg/dL [facility] GFR/1.73 sq M.predicted CKD-EPI (S/P/Bld) [Vol rate/Area] 26 Low >=60 mL/min/1.73m 2 [facility] Comment on above: Reported eGFR is bas ed on the CKD-EPI 2020 equation using creatinine, age, and sex. Potassium [Moles/Vol] 4.6 mmol/L 3.5 - 5.0 mmol/L [facility] Sodium [Moles/Vol] 138 mmol/L 135 - 145 mmol/L [facility] Urea nitrogen [Mass/Vol] 32 mg/dL High 7 - 25 mg/dL [facility] Urea nitrogen/Creatinine [Mass ratio] 11 mg[facility]/PELVIS WO CONon 05-15 CT [...] transplanted kidney with moderate right-sided hydronephrosis. Atrophic ione kidneys with moderate right-sided hydronephrosis. Multiple nonobstructive [...] transplanted kidney with moderate right-sided hydronephrosis. Atrophic ione kidneys with moderate right-sided hydronephrosis. Multiple nonobstructive right renal calculi measuring up to 8 mm. FOLLOW-UP: Follow-up as clinically indicated. Electronically authenticated by: LYNDSAY JEAN Date: 2022-05-15 05:04 Normal [facility] Covid-19 PCR ([facility])on 04-30 SARS-CoV-2 (COVID-19) RNA ESTELITA+probe Ql (Unsp spec) Not detected Normal NOT DETECTED [facility] Comment on above: Result Comment: When diagnostic [...] for this test is supported by the [employer] of Health and Human Service's declaration [...] used). Performed By: #### U RTPCR #### [facility] [address] [place] [address] Dr. Dwight Waters GLUCOSEon 05-15-2022 Glucose [Mass/Vol] 141 mg/dL High 70 - 99 mg/dL [facility] GOLD TOP TUBEon 05-15-2022 [facility] HEPATIC FUNCTION PANELon Albumin [Mass/Vol] 4.3 g/dL 3.5 - 5.0 g/dL [facility] ALP [Catalytic activity/Vol] 85 U/L 32 - 126 U/L [facility] ALT [Catalytic activity/Vol] 13 U/L 10 - 52 U/L [facility] AST [Catalytic activity/Vol] 15 U/L 10 - 39 U/L [facility] Bilirubin [Mass/Vol] 0.8 mg/dL <1.5 [facility] Bilirubin.direct [Mass/Vol] 0.2 mg/dL <0.3 [facility] Interpretation and review of laboratory results Normal [facility] Protein [Mass/Vol] 7.3 g/dL 6.4 - 8.3 g/dL [facility] LIPASEon 05-15-2022 Lipase [Catalytic activity/Vol] 8 U/L Low 11 - 82 U/L [facility] No Panel Informationon 05-15 Interpretation and review of laboratory results Abnormal [facility] PROF 14(COMP METB)on 022 Albumin [Mass/Vol] 3.8 g/dL Normal 3.4-5.0 [facility] Comment on above: Performed By: #### U RTPCR #### [facility] [address] [place] [address] [id number] [address] Dwight Waters Albumin/Globulin [Mass ratio] 1.1 {ratio} Normal [facility] Comment on above: Performed By: #### U RTPCR #### [facility] [address] [place] [address] Dr. Dwight Waters ALP [Catalytic activity/Vol] 92 U/L Normal 46-116 [facility] Comment on above: Performed By: #### U RTPCR #### [facility] [address] [place] [address] Dr. Dwight Waters ALT [Catalytic activity/Vol] 25 U/L Normal 16-63 [facility] Comment on above: Performed By: #### U RTPCR #### [facility] [address] [place] [address] Dr. Dwight Waters Anion gap [Moles/Vol] 14.6 mmol/L Normal [facility] Comment on above: Performed By: #### U RTPCR #### [facility] [address] [place] [address] Dr. Dwight Waters AST [Catalytic activity/Vol] 17 U/L Normal 15-37 [facility] Comment on above: Performed By: #### U RTPCR #### [facility] [address] [place] [address] Dr. Dwight Waters Bilirubin [Mass/Vol] 0.6 mg/dL Normal 0.2-1.0 [facility] Comment on above: Performed By: #### U RTPCR #### [facility] [address] [place] [address] Dr. Dwight Waters Calcium [Mass/Vol] 9.9 mg/dL Normal 8.5-10.1 [facility] Comment on above: Performed By: #### U RTPCR #### [facility] [address] [place] [address] Dr. Dwight Waters Chloride [Moles/Vol] 106 mmol/L Normal 98-107 [facility] Comment on above: Performed By: #### U RTPCR #### [facility] [address] [place] [address] Dr. Dwight Waters CO2 [Moles/Vol] 24.2 mmol/L Normal 21.0-32.0 [facility] Comment on above: Performed By: #### U RTPCR #### [facility] [address] [place] [address] Dr. Dwight Waters Creatinine [Mass/Vol] 1.58 mg/dL Critically high 0.70-1.30 [facility] Comment on above: Performed By: #### U RTPCR #### [facility] [address] [address] [address] Dwight Waters EGFR-AF FAROESE 56 mL/min/1.73m2 Critically low >=60 [facility] Comment on above: Performed By: #### U RTPCR #### [facility] [address] [address] [address] Dwight Waters EGFR-NON AF FAROESE 46 mL/min/1.73m2 Critically low >=60 [facility] Comment on above: Performed By: #### U RTPCR #### [facility] [address] [place] [address] Dr. Dwight Waters Globulin (S) [Mass/Vol] 3.5 g/dL Normal [facility] Comment on above: Performed By: #### U RTPCR #### [facility] [address] [address] [address] Dwight Waters Glucose [Mass/Vol] 162 mg/dL Critically high 74-106 [facility] Comment on above: Performed By: #### U RTPCR #### [facility] [address] [address] [address] Dwight Waters Potassium [Moles/Vol] 3.8 mmol/L Normal 3.5-5.1 [facility] Comment on above: Performed By: #### U RTPCR #### [facility] [address] [place] [address] Dr. Dwight Waters Protein [Mass/Vol] 7.3 g/dL Normal 6.4-8.2 [facility] Comment on above: Performed By: #### U RTPCR #### [facility] [address] [address] [address] Dwight Waters Sodium [Moles/Vol] 141 mmol/L Normal 136-145 [facility] Comment on above: Performed By: #### U RTPCR #### [facility] [address] [place] [address] Dr. Dwight Waters Urea nitrogen [Mass/Vol] 22.0 mg/dL Critically high 7.0-18.0 [facility] Comment on above: Performed By: #### U RTPCR #### [facility] [address] [id number] Dwight Waters Urea nitrogen/Creatinine [Mass ratio] 13.9 mg/mg Normal [facility] Comment on above: Performed By: #### U RTPCR #### [facility] [address] [id number] Dwight Waters Portable XR Chest Viewson [...] IMPRESSION: No acute cardiopulmonary disease [facility] Radiology Study observation (narrative) [facility] Portable XR Chest ViewsOrder ed By: Vladislav Omer on 05-15-2022 [facility] URINE DIPSTICK; REFLEX MICRO SCOPY; REFLEX CULTURE PERFORMABLEon 05-15-2022 Appearance (U) Clear Clear [facility] Color (U) Yellow Yellow [facility] Glucose Test strip (U) [Mass/Vol] 100 mg/dL Abnormal Negative [facility] Interpretation and review of laboratory results Abnormal [facility] Ketones (U) [Mass/Vol] Negative Negative [facility] Leukocyte esterase Test strip Ql (U) Large Abnormal Negative [facility] Nitrite Ql (U) Negative Negative [facility] pH (U) 6.0 [pH] 5.0 - 7.0 [facility] Protein (U) [Mass/Vol] 100 mg/dL Abnormal Negative [facility] RBC (U) [#/Vol] Large Abnormal Negative [facility] Specific gravity (U) [Rel density] 1.010 [facility] Urobilinogen (U) [Mass/Vol] 0.2 E.U./dL 0.2 E.U/dL, 1.0 E.U/dL [facility] URINE MICROSCOPIC WITH REFLE X TO CULTUREOrdered By: Rey Bro on 05-15-2022 Bacteria LM Ql (Urine sed) ABSENT ABSENT [facility] Epithelial cells.squamous LM Ql (Urine sed) ABSENT 1/hpf = 1+, 2-5/hpf = 2+, 0/hpf = 0+, ABSENT [facility] Interpretation and review of laboratory results Abnormal [facility] RBC LM.HPF (Urine sed) [#/Area] /[HPF] Abnormal 0 - 2 /HPF [facility] WBC LM.HPF (Urine sed) [#/Area] 10-20 Abnormal 0 - 5 /HPF [facility] CT ABD/PELVIS WO CONon 05-12 CT ABD/PELVIS WO CON Begin Addendum #[address] Lund 3:25 PM EST 05/11/2022. Begin Addendum #2 IMPRESSION below should also contain the followin. 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 The ione kidneys are progressively atrophic bilaterally compared to [...] of 06/14/2020 are no longer present. The ione distal right ureter is decompressed beyond this [...] with surgical history for renal graft and ione right urinary drainage, as a discrete ureteroneocystostomy is not identified, and the graft may be draining via a ureteroureterostomy. Urology consultation recommended. 3. The ione kidneys are bilaterally atrophic, with right renal sinus calcifications consistent with nonobstructing right ione renal calculi up to 6 mm. Normal [facility] CBC AUTO DIFFon 05-11-2022 BASO # 0.1 103/ul Normal 0.0-0.1 [facility] Comment on above: Performed By: #### U RTPCR #### [facility] [address] [place] [address] Dr. Dwight Waters Basophils/100 WBC (Bld) 0.8 % Normal 0.2-2.0 [facility] Comment on above: Performed By: #### U RTPCR #### [facility] [address] [place] [address] Dr. Dwight Waters EO # 0.2 103/ul Normal 0.0-0.7 [facility] Comment on above: Performed By: #### U RTPCR #### [facility] [address] [place] [address] Dr. Dwight Waters Eosinophils/100 WBC (Bld) 2.5 % Normal 0.9-7.0 [facility] Comment on above: Performed By: #### U RTPCR #### [facility] [address] [place] [address] Dr. Dwight Waters Erythrocyte distribution width (RBC) [Ratio] 12.5 % Normal 11.0-15.0 [facility] Comment on above: Performed By: #### U RTPCR #### [facility] [address] [place] [address] Dr. Dwight Waters Hematocrit (Bld) [Volume fraction] 48.3 % Normal 42.0-54.0 [facility] Comment on above: Performed By: #### U RTPCR #### [facility] [address] [place] [address] Dr. Dwight Waters Hemoglobin (Bld) [Mass/Vol] 15.3 g/dL Normal 14.0-18.0 [facility] Comment on above: Performed By: #### U RTPCR #### [facility] [address] [place] [address] Dr. Dwight Waters IG # 0.01 10e3/ul Normal 0.00-0.03 [facility] Comment on above: Performed By: #### U RTPCR #### [facility] [address] [place] [address] Dr. Dwight Waters IG % 0.2 % Normal 0.0-0.5 [facility] Comment on above: Performed By: #### U RTPCR #### [facility] [address] [place] [address] Dr. Dwight Waters LYMPH # 1.9 103/ul Normal 1.2-3.8 [facility] Comment on above: Performed By: #### U RTPCR #### [facility] [address] [place] [address] Dr. Dwight Waters Lymphocytes/100 WBC (Bld) 29.8 % Normal 20.5-60.0 [facility] Comment on above: Performed By: #### U RTPCR #### [facility] [address] [place] [address] Dr. Dwight Waters MANUAL DIFF REQ NO Normal [facility] Comment on above: Performed By: #### U RTPCR #### [facility] [address] [place] [address] Dr. Dwight Waters MCH (RBC) [Entitic mass] 28.2 pg Normal 25.9-34.0 [facility] Comment on above: Performed By: #### U RTPCR #### [facility] [address] [place] [address] Dr. Dwight Waters MCHC (RBC) [Mass/Vol] 31.7 g/dL Normal 29.9-35.2 [facility] Comment on above: Performed By: #### U RTPCR #### [facility] [address] [place] [address] Dr. Dwight Waters MCV (RBC) [Entitic vol] 89.1 fL Normal 80.0-94.0 [facility] Comment on above: Performed By: #### U RTPCR #### [facility] [address] [place] [address] Dr. Dwight Waters MONO # 0.6 103/ul Normal 0.3-0.8 [facility] Comment on above: Performed By: #### U RTPCR #### [facility] [address] [place] [address] Dr. Dwight Waters Monocytes/100 WBC (Bld) 9.0 % Normal 1.7-12.0 [facility] Comment on above: Performed By: #### U RTPCR #### [facility] [address] [place] [address] Dr. Dwight Waters NEUT # 3.6 103/ul Normal 1.4-6.5 [facility] Comment on above: Performed By: #### U RTPCR #### [facility] [address] [place] [address] Dr. Dwight Waters Neutrophils/100 WBC (Bld) 57.7 % Normal 43.0-75.0 [facility] Comment on above: Performed By: #### U RTPCR #### [facility] [address] [place] [address] Dr. Dwight Waters Platelet mean volume (Bld) [Entitic vol] 9.9 fL Normal 9.5-13.5 [facility] Comment on above: Performed By: #### U RTPCR #### [facility] [address] [place] [address] Dr. Dwight Waters PLT 249 103/ul Normal 150-450 [facility] Comment on above: Performed By: #### U RTPCR #### [facility] [address] [place] [address] Dr. Dwight Waters RBC 5.42 106/ul Normal 4.70-6.10 [facility] Comment on above: Performed By: #### U RTPCR #### [facility] [address] [place] [address] Dr. Dwight Waters WBC 6.3 103/ul Normal 4.0-11.0 [facility] Comment on above: Performed By: #### U RTPCR #### [facility] [address] [place] [address] Dr. Dwight Waters ER URINE PROFILEon 2 Bilirubin Ql (U) Unable to perform te sting due to color interference. Abnormal NEGATIVE [facility] Comment on above: Performed By: #### U RTPCR #### [facility] [address] [place] [address] Dr. Dwight Waters Clarity (U) TURBID Abnormal CLEAR [facility] Comment on above: Performed By: #### U RTPCR #### [facility] [address] [place] [address] Dr. Dwight Waters Color (U) RED Abnormal YELLOW [facility] Comment on above: Performed By: #### U RTPCR #### [facility] [address] [place] [address] Dr. Dwight Waters ERUAHD A micrscopic examina tion will be performed if indicated. Normal [facility] Comment on above: Performed By: #### U RTPCR #### [facility] [address] [place] [address] Dr. Dwight Waters Glucose Ql (U) Unable to perform te sting due to color interference. Abnormal NEGATIVE [facility] Comment on above: Performed By: #### U RTPCR #### [facility] [address] [place] [address] Dr. Dwight Waters Hemoglobin Ql (U) Unable to perform te sting due to color interference. Abnormal NEGATIVE [facility] Comment on above: Performed By: #### U RTPCR #### [facility] [address] [place] [address] Dr. Dwight Waters Ketones Ql (U) Unable to perform te sting due to color interference. Abnormal NEGATIVE [facility] Comment on above: Performed By: #### U RTPCR #### [facility] [address] [place] [address] Dr. Dwight Waters LEUKOCYTES Unable to perform te sting due to color interference. Abnormal NEGATIVE [facility] Comment on above: Performed By: #### U RTPCR #### [facility] [address] [place] [address] Dr. Dwight Waters Nitrite Ql (U) Unable to perform te sting due to color interference. Abnormal NEGATIVE [facility] Comment on above: Performed By: #### U RTPCR #### [facility] [address] [place] [address] Dr. Dwight Waters pH (U) 6.5 [pH] Normal 5-9 [facility] Comment on above: Performed By: #### U RTPCR #### [facility] [address] [place] [address] Dr. Dwight Waters SPEC GRAVITY 1.020 Normal 1.005-<=1.02 5 [facility] Comment on above: Performed By: #### U RTPCR #### [facility] [address] [place] [address] Dr. Dwight Waters UA PROTEIN Unable to perform te sting due to color interference. Normal NEGATIVE/ TRACE [facility] Comment on above: Performed By: #### U RTPCR #### [facility] [address] [place] [address] Dr. Dwight Waters UR MICRO IND INDICATED Normal [facility] Comment on above: Performed By: #### U RTPCR #### [facility] [address] [place] [address] Dr. Dwight Waters UROBILINOGEN Unable to perform te sting due to color interference. Normal 0.2 - 1.0 [facility] Comment on above: Performed By: #### U RTPCR #### [facility] [address] [place] [address] Dr. Dwight Waters PROF 14(COMP METB)on 022 Albumin [Mass/Vol] 3.8 g/dL Normal 3.4-5.0 [facility] Comment on above: Performed By: #### C MP #### [facility] [address] [place] [address] Dr. Dwight Waters Albumin/Globulin [Mass ratio] 1.1 {ratio} Normal [facility] Comment on above: Performed By: #### C MP #### [facility] [address] [place] [address] Dr. Dwight Waters ALP [Catalytic activity/Vol] 106 U/L Normal 46-116 [facility] Comment on above: Performed By: #### C MP #### [facility] [address] [place] [address] Dr. Dwight Waters ALT [Catalytic activity/Vol] 30 U/L Normal 16-63 [facility] Comment on above: Performed By: #### C MP #### [facility] [address] [place] [address] Dr. Dwight Waters Anion gap [Moles/Vol] 11.7 mmol/L Normal [facility] Comment on above: Performed By: #### C MP #### [facility] [address] [place] [address] Dr. Dwight Waters AST [Catalytic activity/Vol] 16 U/L Normal 15-37 [facility] Comment on above: Performed By: #### C MP #### [facility] [address] [place] [address] Dr. Dwight Waters Bilirubin [Mass/Vol] 0.6 mg/dL Normal 0.2-1.0 [facility] Comment on above: Performed By: #### C MP #### [facility] [address] [place] [address] Dr. Dwight Waters Calcium [Mass/Vol] 9.1 mg/dL Normal 8.5-10.1 [facility] Comment on above: Performed By: #### C MP #### [facility] [address] [place] [address] Dr. Dwight Waters CO2 [Moles/Vol] 27.4 mmol/L Normal 21.0-32.0 [facility] Comment on above: Performed By: #### C MP #### [facility] [address] [place] [address] Dr. Dwight Waters Creatinine [Mass/Vol] 1.18 mg/dL Normal 0.70-1.30 [facility] Comment on above: Performed By: #### C MP #### [facility] [address] [place] [address] Dr. Dwight Waters EGFR-AF FAROESE >60 Normal >=60 [facility] Comment on above: Performed By: #### C MP #### [facility] [address] [address] [address] Dwight Waters EGFR-NON AF FAROESE >60 Normal >=60 [facility] Comment on above: Performed By: #### C MP #### [facility] [address] [address] [address] Dwight Waters Globulin (S) [Mass/Vol] 3.6 g/dL Normal [facility] Comment on above: Performed By: #### C MP #### [facility] [address] [address] [address] Dwight Waters Glucose [Mass/Vol] 192 mg/dL Critically high 74-106 [facility] Comment on above: Performed By: #### C MP #### [facility] [address] [place] [address] Dr. Dwight Waters Potassium [Moles/Vol] 4.1 mmol/L Normal 3.5-5.1 [facility] Comment on above: Performed By: #### C MP #### [facility] [address] [place] [address] Dr. Dwight Waters Protein [Mass/Vol] 7.4 g/dL Normal 6.4-8.2 [facility] Comment on above: Performed By: #### C MP #### [facility] [address] [place] [address] Dr. Dwight Waters Sodium [Moles/Vol] 142 mmol/L Normal 136-145 [facility] Comment on above: Performed By: #### C MP #### [facility] [address] [address] [address] Dwight Waters Urea nitrogen [Mass/Vol] 17.0 mg/dL Normal 7.0-18.0 [facility] Comment on above: Performed By: #### C MP #### [facility] [address] [place] [address] Dr. Dwight Waters Urea nitrogen/Creatinine [Mass ratio] 14.4 mg/mg Normal [facility] Comment on above: Performed By: #### C MP #### [facility] [address] [place] [address] Dr. Dwight Waters URINE MICROSCOPIC ONLYon BACTERIA NONE SEEN Normal NONE SEEN [facility] Comment on above: Performed By: #### U RTPCR #### [facility] [address] [place] [address] Dr. Dwight Waters Bacteria identified Cx Nom (U) NOT INDICATED Normal [facility] Comment on above: Performed By: #### U RTPCR #### [facility] [address] [place] [address] Dr. Dwight Waters CAST NONE SEEN Normal NONE SEEN [facility] Comment on above: Performed By: #### U RTPCR #### [facility] [address] [place] [address] Dr. Dwight Waters Crystals LM Nom (Urine sed) NONE SEEN Normal NONE SEEN [facility] Comment on above: Performed By: #### U RTPCR #### [facility] [address] [place] [address] Dr. Dwight Waters Epithelial cells LM Ql (Urine sed) RARE Normal NONE SEEN /RARE [facility] Comment on above: Performed By: #### U RTPCR #### [facility] [address] [place] [address] Dr. Dwight Waters MUCOUS NONE SEEN Normal NONE SEEN [facility] Comment on above: Performed By: #### U RTPCR #### [facility] [address] [place] [address] Dr. Dwight Waters RBC (U) [#/Vol] /uL Abnormal 0-2 [facility] Comment on above: Performed By: #### U RTPCR #### [facility] [address] [place] [address] Dr. Dwight Waters WBC NONE SEEN Normal NONE SEEN [facility] Comment on above: Performed By: #### U RTPCR #### [facility] [address] [place] [address] Dr. Dwight Waters K (Potassium)on 01-06-2020 Potassium [Moles/Vol] 4.4 mmol/L Normal 3.7-5.3 [facility] Comment on above: Performed By: #### K #### [facility] [address] [place] [id number] Pl Sql Programmer: Kehinde Woodward MD Potassiumon 01-06-2020 Potassium [Moles/Vol] 4.4 mmol/L 3.7 - 5.3 mmol/L [facility] Work Phone: Hemoglobin and Hematocrit, B loodon 10-24-2019 Hematocrit (Bld) [Volume fraction] 23.6 % Low 40.7 - 50.3 % [place] Hemoglobin (Bld) [Mass/Vol] 7.3 g/dL Low 13 - 17 g/dL [place] Interpretation and review of laboratory results Abnormal [place] Hgb/Hcton 10-24-2019 Hematocrit (Bld) [Volume fraction] 23.6 % Low 40.7-50.3 [facility] Comment on above: Performed By: #### H H #### [facility] [address] [place] [address] [address] [place] [id number] Pl Sql Programmer: Kehinde Woodward MD Hemoglobin (Bld) [Mass/Vol] 7.3 g/dL Low 13.0-17.0 [facility] Comment on above: Performed By: #### H H #### [address] [place] [address] Pl Sql Programmer: Kehinde Woodward MD Hemoglobinon 08-27-2019 Hemoglobin (Bld) [Mass/Vol] 7.5 g/dL Low 13.0-17.0 [facility] Comment on above: Performed By: #### H GB #### [facility] [address] [place] [address] Pl Sql Programmer: Kehinde Woodward MD Hemoglobin (Bld) [Mass/Vol] 7.5 g/dL Low 13 - 17 g/dL [place] Interpretation and review of laboratory results Abnormal [place] Hemoglobinon 08-08-2019 Hemoglobin (Bld) [Mass/Vol] 8.3 g/dL Low 13.0-17.0 [facility] Comment on above: Performed By: #### H GB #### [facility] [address] [place] [address] Pl Sql Programmer: Kehinde Woodward MD Hemoglobin (Bld) [Mass/Vol] 8.3 g/dL Low 13 - 17 g/dL [place] Interpretation and review of laboratory results Abnormal [place] Hemoglobinon 08-04-2019 Hemoglobin (Bld) [Mass/Vol] 8.0 g/dL Low 13.0-17.0 [facility] Comment on above: Performed By: #### H GB #### [facility] [address] [place] [address] Pl Sql Programmer: Kehinde Woodward MD Hemoglobin A1Con 08-03-2019 HbA1c (Bld) [Mass fraction] % Low 4.8-5.9 [facility] Comment on above: Result Comment: The ADA and AACC recommend providing the estimated average glucose result to permit better patient understanding of their HBA1c result. Performed By: #### G LYHGB #### [facility] [address] [place] [address] Pl Sql Programmer: Kehinde Woodward MD Glucose [Mass/Vol] mg/dL mg/dL [place] Comment on above: The ADA and AACC rec ommend providing the estimated average glucose result to permit better patient understanding of their HBA1c result. HbA1c (Bld) [Mass fraction] % Low 4.8 - 5.9 % [place] Interpretation and review of laboratory results Abnormal [place] Hemoglobinon 08-01-2019 Hemoglobin (Bld) [Mass/Vol] 8.1 g/dL Low 13.0-17.0 [facility] Comment on above: Performed By: #### H GB #### [facility] [address] [place] [address] Pl Sql Programmer: Kehinde Woodward MD Hemoglobin (Bld) [Mass/Vol] 8.1 g/dL Low 13 - 17 g/dL [place] Interpretation and review of laboratory results Abnormal [place] Hgb/Hcton 06-10-2019 Hematocrit (Bld) [Volume fraction] 24.3 % Low 40.7-50.3 [facility] Comment on above: Performed By: #### H H #### [facility] [address] [place] [id number] Pl Sql Programmer: Kehinde Woodward MD Hemoglobin (Bld) [Mass/Vol] 7.4 g/dL Low 13.0-17.0 [facility] Comment on above: Performed By: #### H H #### [facility] [address] [place] [id number] Pl Sql Programmer: Kehinde Woodward MD Hemoglobinon 06-01-2019 Hemoglobin (Bld) [Mass/Vol] 7.2 g/dL Low 13.0-17.0 [facility] Comment on above: Performed By: #### H GB #### [facility] [address] [place] [id number] Pl Sql Programmer: Kehinde Woodward MD K (Potassium)on 01-14-2019 Potassium [Moles/Vol] 3.6 mmol/L Low 3.7-5.3 [facility] Comment on above: Performed By: #### K #### [facility] [address] [place] [id number] Pl Sql Programmer: Kehinde Woodward MD Otheron 10-19-2018 IMPRESSION: 1. [...] No confirmatory testing will follow. Invalid Interpretation [facility] Comment on above: This Liquid Chromato graphy Mass Spectrometry (LC/MS/MS) test was developed and its performance characteristics determined by Toxicology Laboratory at [facility]. It has not been cleared [...] Amitriptyline(50), Amphetamine(250), Atenolol(500), Barbiturates(1000), Benzoylecgonine(50), Buprenorphine(50), Bupropion(25), Caffeine(03893), Chlordiazepoxide(50), Chlorpheniramine(100), Chlorpromazine(50), Citalopram(100), Clonazepam(200), Cocaine(25), Codeine(200), [...] Code MISSY, [facility] TOXICOLOGY SCREEN URINE - [facility] 10-12-2018 Drugs identified Screen Nom (U) For Medical Purposes Only, Non-forensic, screen results are presumptive. No confirmatory testing will follow. Invalid Interpretation [facility], [facility] Comment on above: This Liquid Chromato graphy Mass Spectrometry (LC/MS/MS) test was developed and its performance characteristics determined by Toxicology Laboratory at [facility]. It has not been cleared [...] Amitriptyline(50), Amphetamine(250), Atenolol(500), Barbiturates(200), Benzoylecgonine(50), Buprenorphine(500), Bupropion(25), Caffeine(03778), Cannabinoids(THC)(50), Chlordiazepoxide(50), Chlorpheniramine(100), Chlorpromazine(50), Citalopram(100), Clonazepam(200), Cocaine(25), [...] Time Vital Sign Value Performing Clinician Facility 03-21-2025 09:43-0400 Body height 170.2 cm Tony Hernandez MD Work Phone: [facility] 03-21-2025 09:43-0400 Body mass index (BMI) [Ratio] 32.89 kg/m2 Tony Hernandez MD Work Phone: [facility] 03-21-2025 09:43-0400 Body weight 95.25 kg Tony Hernandez MD Work Phone: [facility] 03-21-2025 09:43-0400 Heart rate 80 /min Tony Hernandez MD Work Phone: [facility] 03-21-2025 09:43-0400 Respiratory rate 18 /min Tony Hernandez MD Work Phone: [facility] 03-21-2025 09:43-0400 SaO2% (BldA) [Mass fraction] 95 % Tony Hernandez MD Work Phone: [facility] 02-28-2025 09:07-0400 Body height 170.2 cm Tony Hernandez MD Work Phone: [facility] 02-28-2025 09:07-0400 Body mass index (BMI) [Ratio] 32.26 kg/m2 Tony Hernandez MD Work Phone: [facility] 02-28-2025 09:07-0400 Body weight 93.44 kg Tony Hernandez MD Work Phone: [facility] 02-28-2025 09:07-0400 Diastolic blood pressure 90 mm[Hg] Tony Hernandez MD Work Phone: [facility] 02-28-2025 09:07-0400 Heart rate 86 /min Tony Hernandez MD Work Phone: [facility] 02-28-2025 09:07-0400 Respiratory rate 18 /min Tony Hernandez MD Work Phone: [facility] 02-28-2025 09:07-0400 SaO2% (BldA) [Mass fraction] 95 % Tony Hernandez MD Work Phone: [facility] 02-28-2025 09:07-0400 Systolic blood pressure 138 mm[Hg] Tony Hernandez MD Work Phone: [facility] 01-03-2025 11:01-0500 Diastolic blood pressure 88 mm[Hg] Steph Almodovar [facility] 01-03-2025 11:01-0500 Heart rate 67 /min Steph Almodovar [facility] 01-03-2025 11:01-0500 Respiratory rate 16 /min Steph Orzech [facility] 01-03-2025 11:01-0500 Systolic blood pressure 124 mm[Hg] Steph Orzech [facility] 12-26-2024 09:32-0500 Diastolic blood pressure 71 mm[Hg] Zuly Aichholz Work Phone: [facility] 12-26-2024 09:32-0500 Heart rate 62 /min Zuly Aichholz Work Phone: [facility] 12-26-2024 09:32-0500 Respiratory rate 16 /min Zuly Aichholz Work Phone: [facility] 12-26-2024 09:32-0500 SaO2% (BldA) [Mass fraction] 95 % Zuly Aichholz Work Phone: [facility] 12-26-2024 09:32-0500 Systolic blood pressure 105 mm[Hg] Zuly Aichholz Work Phone: [facility] 12-26-2024 06:58-0500 Body height 170.18 cm Zuly Aichholz Work Phone: [facility] 12-26-2024 06:58-0500 Body weight 89.35 kg Zuly Aichholz Work Phone: [facility] 12-15-2024 09:15-0500 Body height 170.18 cm [facility] 12-15-2024 09:15-0500 Body mass index (BMI) [Ratio] 30.8 kg/m2 [facility] 12-15-2024 09:15-0500 Body weight 89.35 kg [facility] 12-15-2024 09:15-0500 Diastolic blood pressure 72 mm[Hg] [facility] 12-15-2024 09:15-0500 Heart rate 82 /min [facility] 12-15-2024 09:15-0500 Systolic blood pressure 126 mm[Hg] [facility] 11-22-2024 09:35-0500 Diastolic blood pressure 95 mm[Hg] Steph Orzech [facility] 11-22-2024 09:35-0500 Heart rate 68 /min Steph Orzech [facility] 11-22-2024 09:35-0500 Systolic blood pressure 135 mm[Hg] Steph Orzech [facility] 11-07-2024 14:29-0500 Body height 170.2 cm Zuly Marissaz [employer] Work Phone: [facility] 11-07-2024 14:29-0500 Body mass index (BMI) [Ratio] 31.83 kg/m2 Zuly Marissaz [employer] Work Phone: [facility] 11-07-2024 14:29-0500 Body temperature 98.2 [degF] Zuly Marissaz [employer] Work Phone: [facility] 11-07-2024 14:29-0500 Body weight 92.17 kg Zuly Lexiehholz [employer] Work Phone: [facility] 11-07-2024 14:29-0500 Diastolic blood pressure 86 mm[Hg] Zuly Aichholz [employer] Work Phone: [facility] 11-07-2024 14:29-0500 Heart rate 63 /min Zuly Aichholz [employer] Work Phone: [facility] 11-07-2024 14:29-0500 Respiratory rate 18 /min Zuly Aichholz [employer] Work Phone: [facility] 11-07-2024 14:29-0500 SaO2% (BldA) [Mass fraction] 96 % Zuly Bruno [employer] Work Phone: [facility] 11-07-2024 14:29-0500 Systolic blood pressure 128 mm[Hg] Zuly Bruno [employer] Work Phone: [facility] 09-08-2024 13:40-0400 Blood Pressure Location Clementina Galea [facility] 09-08-2024 13:40-0400 Diastolic blood pressure 90 mm[Hg] Clementina Galea [facility] 09-08-2024 13:40-0400 Heart rate 66 /min Clementina Galea [facility] 09-08-2024 13:40-0400 Systolic blood pressure 144 mm[Hg] Clementina Galea [facility] 08-23-2024 08:45-0400 Body height 170.2 cm Zuly Bruno [employer] Work Phone: [facility] 08-23-2024 08:45-0400 Body mass index (BMI) [Ratio] 30.26 kg/m2 Zuly Bruno [employer] Work Phone: [facility] 08-23-2024 08:45-0400 Body temperature 98.01 [degF] Zuly Bruno [employer] Work Phone: [facility] 08-23-2024 08:45-0400 Body weight 87.64 kg Zuly Bruno [employer] Work Phone: [facility] 08-23-2024 08:45-0400 Diastolic blood pressure 80 mm[Hg] Zuly Bruno [employer] Work Phone: [facility] 08-23-2024 08:45-0400 Heart rate 61 /min Zuly Bruno [employer] Work Phone: [facility] 08-23-2024 08:45-0400 Respiratory rate 18 /min Zuly Bruno [employer] Work Phone: [facility] 08-23-2024 08:45-0400 SaO2% (BldA) [Mass fraction] 96 % Zuly Bruno [employer] Work Phone: [facility] 08-23-2024 08:45-0400 Systolic blood pressure 132 mm[Hg] Zuly Bruno [employer] Work Phone: [facility] 06-17-2024 08:37-0400 Body mass index (BMI) [Ratio] 29.43 kg/m2 Rebeca Gutierrez [employer] Work Phone: [facility] 06-17-2024 08:37-0400 Body temperature 97.39 [degF] Rebeca Gutierrez [employer]DICTION SOC[employer] WORKER[employer] Work Phone: [facility] 06-17-2024 08:37-0400 Body weight 85.23 kg Rebeca Gutierrez [employer]DICTION SOCIAL WORKER[employer]CH[employer] Work Phone: [facility] 06-17-2024 08:37-0400 Diastolic blood pressure 75 mm[Hg] Rebeca Gutierrez ADDICTION SOCIAL WORKER[employer]CH[employer]IAN Work Phone: [facility] 06-17-2024 08:37-0400 Heart rate 53 /min Rebeca Gutierrez [employer]DICTION SOC[employer] WORKER[employer] Work Phone: [facility] 06-17-2024 08:37-0400 Systolic blood pressure 143 mm[Hg] Rebeca Gutierrez [employer]DICTION SOCIAL WORKER[employer] Work Phone: [facility] 06-17-2024 08:36-0400 Body mass index (BMI) [Ratio] 29.43 kg/m2 Daishanoah Max DO Work Phone: [facility] 06-17-2024 08:36-0400 Body temperature 97.39 [degF] Daisha Sobotka DO Work Phone: [facility] 06-17-2024 08:36-0400 Body weight 85.23 kg Daisha Sobotka DO Work Phone: [facility] 06-17-2024 08:36-0400 Diastolic blood pressure 75 mm[Hg] Daisha Sobotka DO Work Phone: [facility] 06-17-2024 08:36-0400 Heart rate 53 /min Daisha Sobotka DO Work Phone: [facility] 06-17-2024 08:36-0400 Systolic blood pressure 143 mm[Hg] Daisha Sobotka DO Work Phone: [facility] 02-26-2024 09:07-0400 Diastolic blood pressure 56 mm[Hg] Candie Almaguer MD Work Phone: [facility] 02-26-2024 09:07-0400 Heart rate 65 /min Candie Almaguer MD Work Phone: [facility] 02-26-2024 09:07-0400 Systolic blood pressure 113 mm[Hg] Candie Almaguer MD Work Phone: [facility] 02-26-2024 09:06-0400 Body height 170.2 cm Candie Almaguer MD Work Phone: [facility] 02-26-2024 09:06-0400 Body mass index (BMI) [Ratio] 28.9 kg/m2 Candie Almaguer MD Work Phone: [facility] 02-26-2024 09:06-0400 Body weight 83.69 kg Candie Almaguer MD Work Phone: [facility] 02-26-2024 09:06-0400 Respiratory rate 20 /min Candie Almaguer MD Work Phone: [facility] 02-26-2024 09:06-0400 SaO2% (BldA) [Mass fraction] 97 % Candie Almaguer MD Work Phone: [facility] 01-23-2024 15:04-0500 Body temperature 97.9 [degF] Reese Sage MD Work Phone: [facility] 01-23-2024 15:04-0500 Diastolic blood pressure 67 mm[Hg] Reese Sage MD Work Phone: [facility] 01-23-2024 15:04-0500 Heart rate 51 /min Reese Sage MD Work Phone: [facility] 01-23-2024 15:04-0500 Respiratory rate 16 /min Reese Sage MD Work Phone: [facility] 01-23-2024 15:04-0500 SaO2% (BldA) [Mass fraction] 94 % Reese Sage MD Work Phone: [facility] 01-23-2024 15:04-0500 Systolic blood pressure 151 mm[Hg] Reese Sage MD Work Phone: [facility] 01-23-2024 10:46-0500 Body mass index (BMI) [Ratio] 30.94 kg/m2 Reese Sage MD Work Phone: [facility] 01-23-2024 10:46-0500 Body weight 89.6 kg Reese Sage MD Work Phone: [facility] 01-18-2024 11:21-0500 Body height 170.2 cm Reese Sage MD Work Phone: [facility] 01-06-2024 09:04-0500 Body height 170.2 cm Zuly Bruno [employer] Work Phone: [facility] 01-06-2024 09:04-0500 Body mass index (BMI) [Ratio] 32.42 kg/m2 Zuly Annz [employer] Work Phone: [facility] 01-06-2024 09:04-0500 Body temperature 97.81 [degF] Zuly Annz [employer] Work Phone: [facility] 01-06-2024 09:04-0500 Body weight 93.89 kg Zuly Annz [employer] Work Phone: [facility] 01-06-2024 09:04-0500 Diastolic blood pressure 70 mm[Hg] Zuly Annz [employer] Work Phone: [facility] [facility] 01-06-2024 09:04-0500 Heart rate 95 /min Zuly Annz TURNER OFF Work Phone: [facility] 01-06-2024 09:04-0500 Respiratory rate 17 /min Zulytray Torresholz TURNER OFF Work Phone: [facility] 01-06-2024 09:04-0500 SaO2% (BldA) [Mass fraction] 99 % Zuly Annz TURNER OFF Work Phone: [facility] 01-06-2024 09:04-0500 Systolic blood pressure 138 mm[Hg] Zuly Annz TURNER OFF Work Phone: [facility] 09-11-2023 10:31-0400 Body temperature 97.81 [degF] Steve Tammy MBBS Work Phone: [facility] 09-11-2023 10:31-0400 Diastolic blood pressure 66 mm[Hg] Steve Tammy MBBS Work Phone: [facility] 09-11-2023 10:31-0400 Heart rate 70 /min Steve Tammy MBBS Work Phone: 7(871)[phone] [place] [address] 09-11-2023 10:31-0400 Respiratory rate 20 /min Steve Tammy MBBS Work Phone: [facility] 09-11-2023 10:31-0400 SaO2% (BldA) [Mass fraction] 91 % Steve Tammy MBBS Work Phone: [facility] 09-11-2023 10:31-0400 Systolic blood pressure 129 mm[Hg] Steve Tammy MBBS Work Phone: 4(497)[phone] [place] [address] 09-10-2023 15:50-0400 Body mass index (BMI) [Ratio] 31.99 kg/m2 Steve Tammy MBBS Work Phone: 1(371)[phone] [address] 09-10-2023 15:50-0400 Body weight 92.67 kg Steve Tammy MBBS Work Phone: 9(794)[phone] [address] 09-02-2023 07:32-0400 Body height 170.2 cm Steve Tammy MBBS Work Phone: 5(794)[phone] [address] 08-28-2023 13:33-0400 Body height 170.2 cm Steve Tammy MBBS Work Phone: 2(170)[phone] [address] 08-28-2023 13:33-0400 Body mass index (BMI) [Ratio] 32.12 kg/m2 Steve Tammy MBBS Work Phone: [facility] 08-28-2023 13:33-0400 Body temperature 97.3 [degF] Steve Tammy MBBS Work Phone: 5(502)[phone] [address] 08-28-2023 13:33-0400 Body weight 93.03 kg Steve Tammy MBBS Work Phone: 9(565)[phone] [address] 08-28-2023 13:33-0400 Diastolic blood pressure 41 mm[Hg] Steve Tammy MBBS Work Phone: [facility] 08-28-2023 13:33-0400 Heart rate 116 /min Steve Farrari MBBS Work Phone: [facility] 08-28-2023 13:33-0400 Systolic blood pressure 106 mm[Hg] Steve Farrari MBBS Work Phone: [facility] 06-12-2023 14:50-0400 Body mass index (BMI) [Ratio] 33.8 kg/m2 Rebeca Gutierrez ADDICTION SOCIAL WORKER-[employer]CH[employer] Work Phone: [facility] 06-12-2023 14:50-0400 Body temperature 97.3 [degF] Rebeca Gutierrez ADDICTION SOCIAL WORKER-[employer] TECHNIC[employer] Work Phone: [facility] 06-12-2023 14:50-0400 Body weight 97.89 kg Rebeca Gutierrez ADDICTION SOCIAL WORKER-[employer] TECHNICIAN Work Phone: [facility] 06-12-2023 14:50-0400 Diastolic blood pressure 77 mm[Hg] Rebeca Gutierrez ADDICTION SOCIAL WORKER-[employer] TECHNICIAN Work Phone: [facility] 06-12-2023 14:50-0400 Heart rate 76 /min Rebeca Gutierrez ADDICTION SOCIAL WORKER-[employer] TECHNICIAN Work Phone: [facility] 06-12-2023 14:50-0400 Systolic blood pressure 146 mm[Hg] Rebeca Gutierrez ADDICTION SOCIAL WORKER-[employer] TECHNICIAN Work Phone: [facility] 01-16-2023 08:57-0500 Body height 170.2 cm [facility] Work Phone: [facility] 01-16-2023 08:57-0500 Body mass index (BMI) [Ratio] 33.66 kg/m2 [facility] Work Phone: [facility] 01-16-2023 08:57-0500 Body temperature 97.3 [degF] [facility] Work Phone: [facility] 01-16-2023 08:57-0500 Body weight 97.48 kg [facility] Work Phone: [facility] 01-16-2023 08:57-0500 Diastolic blood pressure 75 mm[Hg] [facility] Work Phone: [facility] 01-16-2023 08:57-0500 Heart rate 76 /min [facility] Work Phone: [facility] 01-16-2023 08:57-0500 Systolic blood pressure 142 mm[Hg] [facility] Work Phone: [facility] 09-10-2022 09:38-0400 Body height 170.2 cm Ryan Yepez MD Work Phone: [facility] 09-10-2022 09:38-0400 Body mass index (BMI) [Ratio] 33.67 kg/m2 Ryan Yepez MD Work Phone: [facility] 09-10-2022 09:38-0400 Body weight 97.52 kg Ryan Yepez MD Work Phone: [facility] 09-10-2022 09:38-0400 Diastolic blood pressure 83 mm[Hg] Ryan Yepez MD Work Phone: [facility] 09-10-2022 09:38-0400 Heart rate 64 /min Ryan Yepez MD Work Phone: [facility] 09-10-2022 09:38-0400 SaO2% (BldA) [Mass fraction] 96 % Rayn Yepez MD Work Phone: [facility] 09-10-2022 09:38-0400 Systolic blood pressure 129 mm[Hg] Ryan Yepez MD Work Phone: [facility] 07-07-2022 13:48-0400 Diastolic blood pressure 76 mm[Hg] Ryan Yepez MD Work Phone: [facility] 07-07-2022 13:48-0400 Heart rate 82 /min Ryan Yepez MD Work Phone: 7(334)[phone] [place] [address] 07-07-2022 13:48-0400 SaO2% (BldA) [Mass fraction] 96 % Ryan Yepez MD Work Phone: 0(237)[phone] [place] [address] 07-07-2022 13:48-0400 Systolic blood pressure 141 mm[Hg] Ryan Yepez MD Work Phone: 5(224)[phone] [place] [address] 06-27-2022 13:32-0400 Body height 170.2 cm Ryan Yepez MD Work Phone: 0(887)[phone] [place] [address] 06-27-2022 13:32-0400 Body mass index (BMI) [Ratio] 34.24 kg/m2 Ryan Yepez MD Work Phone: 2(210)[phone] [place] [address] 06-27-2022 13:32-0400 Body temperature 98.6 [degF] Ryan Yepez MD Work Phone: 3(014)[phone] [place] [address] 06-27-2022 13:32-0400 Body weight 99.16 kg Ryan Yepez MD Work Phone: 7(546)[phone] [place] [address] 06-27-2022 13:32-0400 Diastolic blood pressure 78 mm[Hg] Ryan Yepez MD Work Phone: 9(305)[phone] [place] [address] 06-27-2022 13:32-0400 Heart rate 77 /min Ryan Yepez MD Work Phone: 3(859)[phone] [place] [address] 06-27-2022 13:32-0400 SaO2% (BldA) [Mass fraction] 95 % Ryan Yepez MD Work Phone: [facility] 06-27-2022 13:32-0400 Systolic blood pressure 121 mm[Hg] Ryan Yepez MD Work Phone: [facility] 06-27-2022 10:52-0400 Body height 170.2 cm Rena Brewster RN [facility] 06-27-2022 10:52-0400 Body mass index (BMI) [Ratio] 34.46 kg/m2 Rena Brewster RN [facility] 06-27-2022 10:52-0400 Body temperature 98.2 [degF] Rena Brewster RN [facility] 06-27-2022 10:52-0400 Body weight 99.79 kg Rena Brewster RN [facility] 06-27-2022 10:52-0400 Diastolic blood pressure 73 mm[Hg] Rena Brewster RN [facility] 06-27-2022 10:52-0400 Heart rate 78 /min Rena Brewster RN [facility] 06-27-2022 10:52-0400 Respiratory rate 20 /min Rena Brewster RN [facility] 06-27-2022 10:52-0400 SaO2% (BldA) [Mass fraction] 97 % Rena Brewster RN [facility] 06-27-2022 10:52-0400 Systolic blood pressure 135 mm[Hg] Rena Brewster RN [facility] 06-12-2022 14:23-0400 Body mass index (BMI) [Ratio] 34.59 kg/m2 Steve LEIGH Work Phone: [facility] 06-12-2022 14:23-0400 Body temperature 97 [degF] Steve LEIGH Work Phone: [facility] 06-12-2022 14:23-0400 Body weight 100.2 kg Steve Tammy MBBS Work Phone: [facility] 06-12-2022 14:23-0400 Diastolic blood pressure 66 mm[Hg] Steve Farrari MBBS Work Phone: [facility] 06-12-2022 14:23-0400 Heart rate 63 /min Steve Farrari MBBS Work Phone: [facility] 06-12-2022 14:23-0400 Systolic blood pressure 133 mm[Hg] Steve Farrari MBBS Work Phone: [facility] 05-20-2022 15:21-0400 Body temperature 97.9 [degF] Gian Villatoro MD Work Phone: [facility] 05-20-2022 15:21-0400 Diastolic blood pressure 64 mm[Hg] Gian Villatoro MD Work Phone: [facility] 05-20-2022 15:21-0400 Heart rate 55 /min Gian Villatoro MD Work Phone: [facility] 05-20-2022 15:21-0400 Respiratory rate 15 /min Gian Villatoro MD Work Phone: [facility] 05-20-2022 15:21-0400 SaO2% (BldA) [Mass fraction] 95 % Gian Villatoro MD Work Phone: [facility] 05-20-2022 15:21-0400 Systolic blood pressure 145 mm[Hg] Gian Villatoro MD Work Phone: [facility] 05-19-2022 12:15-0400 Body mass index (BMI) [Ratio] 35.87 kg/m2 Gian Villatoro MD Work Phone: [facility] 05-19-2022 12:15-0400 Body weight 103.92 kg Gian Villatoro MD Work Phone: [facility] Comment on above: standing scale 05-16-2022 16:19-0400 Body height 170.2 cm Gian Villatoro MD Work Phone: [facility] 10-19-2018 08:44-0500 BMI (Body Mass Index) 26.58 kg/m2 [facility] Work Phone: 10-19-2018 08:44-0500 BP Diastolic 76 mm[Hg] [facility] Work Phone: 10-19-2018 08:44-0500 BP Systolic 144 mm[Hg] [facility] Work Phone: 10-19-2018 08:44-0500 Height 172.7 cm [facility] Work Phone: 10-19-2018 08:44-0500 Pulse (Heart Rate) 92 /min [facility] Work Phone: 10-19-2018 08:44-0500 Pulse Oximetry 99 % [facility] Work Phone: 10-19-2018 08:44-0500 Respiratory Rate 16 /min [facility] Work Phone: 10-19-2018 08:44-0500 Weight 79.29 kg [facility] Work Phone: 10-12-2018 09:50-0500 BMI (Body [...] Date Encounter Type Care Provider Facility Start: 09-27-2025 ambulatory Clementina Montesinos Facility :[facility] Start: 03-23-2025 End: 03-23-2025 ambulatory Clementina Montesinos Facility:[facility] Start: 03-22-2025 ambulatory [facility] Start: 03-21-2025 End: 03-21-2025 Bamboo flowsheet Tony Hernandez MD Work Phone: [facility] Start: 03-21-2025 End: 03-21-2025 Bamboo flowsheet Tony Hernandez MD Work Phone: [facility] Start: 03-21-2025 End: 03-21-2025 Office outpatient visit 40 minutes Tony Hernandez MD Work Phone: 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); Vitamin D deficiency; Liver transplant status Start: 03-21-2025 End: 03-21-2025 ambulatory AHJAMES SANCHEZBAGH Not Available Start: 03-09-2025 ambulatory Steph X Scooby Facilit y:[facility] Start: 03-08-2025 End: 03-08-2025 Clinisync Result Encounter Generic External Data Provider [facility] External Department Unsolicited Start: 03-08-2025 End: 03-08-2025 Clinisync Result Encounter Generic External Data Provider [facility] External Department Unsolicited Start: 03-07-2025 End: 03-07-2025 Clinisync Result Encounter Generic External Data Provider [facility] External Department Unsolicited Start: 03-07-2025 End: 03-07-2025 Clinisync Result Encounter Generic External Data Provider [facility] External Department Unsolicited Start: 02-28-2025 End: 02-28-2025 Bamboo flowsheet [facility] Hernandez [facility] Start: 02-28-2025 End: 02-28-2025 Bamboo flowsheet oTny Hernandez MD Work Phone: [facility] Start: 02-28-2025 End: 02-28-2025 Office outpatient new 45 minutes Tony Hernandez MD Work Phone: [facility] Comment on above: Other osteoporosis w ithout current pathological fracture; Liver transplant status; Organ transplant Start: 02-28-2025 End: 02-28-2025 ambulatory TONY SANCHEZBAGH Not Available Start: 02-24-2025 End: 02-24-2025 Refill Zuly Aichholz TURNER OFF Work Phone: [facility] Comment on above: Elevated blood uric acid level (Primary Dx) Start: 02-08-2025 End: 02-08-2025 ambulatory ZULY AICHHOLZ Not Available Start: 02-01-2025 End: 02-01-2025 Refill Zuly Aichholz TURNER OFF Work Phone: [facility] Comment on above: Primary hypertension (CMS/HCC) Start: 01-31-2025 End: 01-31-2025 Clinisync Result Encounter Generic External Data Provider [facility] External Department Unsolicited Start: 01-31-2025 End: 01-31-2025 Clinisync Result Encounter Generic External Data Provider [facility] External Department Unsolicited Start: 01-23-2025 ambulatory Steph Orleonadroch Facility: [facility] Start: 01-13-2025 End: 01-13-2025 Orders Only Zuly Bruno TURNER OFF Work Phone: [facility] Comment on above: Other osteoporosis w ithout current pathological fracture (CMS/HCC) (Primary Dx); Liver transplant status (CMS/HCC); Organ transplant Start: 01-05-2025 End: 01-06-2025 Refill Zuly Bruno TURNER OFF Work Phone: [facility] Comment on above: Other polyneuropathy Start: 01-03-2025 End: 01-03-2025 ambulatory Ulaola Jony Facility: [facility] Start: 01-03-2025 End: 01-03-2025 Patient encounter procedure Steph X Orjosue [facility] Start: 12-28-2024 End: 12-28-2024 Clinisync Result Encounter Generic External Data Provider [facility] External Department Unsolicited Start: 12-28-2024 End: 12-28-2024 Clinisync Result Encounter Generic External Data Provider [facility] External Department Unsolicited Start: 12-26-2024 Non-patient / Non-visit Zuly olmedo Work Phone: [facility] Work Phone: Start: 12-26-2024 End: 12-26-2024 Admission to same day surgery center Zuly Bruno Work Phone: [facility] Work Phone: Start: 12-26-2024 End: 12-26-2024 ambulatory Zuly Bruno Work Phone: [facility] Work Phone: Start: 12-23-2024 End: 12-23-2024 Refill Zuly Bruno NP Work Phone: [facility] Start: 12-15-2024 End: 12-15-2024 ambulatory [facility] Work Phone: Start: 12-15-2024 End: 12-15-2024 [facility] Work Phone: Start: 11-22-2024 End: 11-22-2024 ambulatory Stpeh X Orzech Facility:[facility] Start: 11-22-2024 End: 11-22-2024 Patient encounter procedure Steph X Orzech [facility] Start: 11-21-2024 End: 11-21-2024 Clinisync Result Encounter Generic External Data Provider [facility] External Department Unsolicited Start: 11-21-2024 End: 11-21-2024 Clinisync Result Encounter Generic External Data Provider [facility] External Department Unsolicited Start: 11-07-2024 End: 11-07-2024 Office outpatient visit 25 minutes Zuly Bruno TURNER OFF Work Phone: [facility] Comment on [...] ambulatory Evan Bolton RPh,PharmD [facility] [place] Start: 10-31-2024 End: 10-31-2024 Patient encounter procedure Evan Che Murray,PharmD [facility] [place] Start: 10-29-2024 End: [...] Refill Momo Verdugo MD Work Phone: [facility] Comment on [...] Start: 09-08-2024 End: 09-08-2024 ambulatory Clementina Montesinos Facility:[facility] Start: 09-08-2024 End: 09-08-2024 Patient encounter procedure Clementina Montesinos [facility] Start: 09-07-2024 ambulatory ZULY BRUNO Facility: [facility] Start: 09-05-2024 End: 09-05-2024 ambulatory Angel Carpio RPh,PharmD [facility] [place] Start: 09-05-2024 End: 09-05-2024 Patient encounter procedure Angel Carpio RPh,PharmD [facility] [place] Start: 08-29-2024 End: 08-29-2024 Clinisync Result Encounter Generic External Data Provider [facility] External Department Unsolicited Start: 08-29-2024 End: 08-29-2024 Clinisync Result Encounter Generic External Data Provider [facility] External Department Unsolicited Start: 08-24-[address] [facility] Facility: [facility] Start: 08-23-2024 End: 08-23-2024 Bamboo flowsheet Zuly Bruno TURNER OFF Work Phone: [facility] Start: 08-23-2024 End: 08-23-2024 Bamboo flowsheet Zuly Bruno TURNER OFF Work Phone: [facility] Start: 08-23-2024 End: 08-23-2024 Office outpatient visit 25 minutes Zuly Bruno TURNER OFF Work Phone: [facility] Comment on [...] Unsolicited Start: 08-11-2024 End: 08-12-2024 Refill Zuly Kiana TURNER OFF Work Phone: [facility] Comment on above: Primary hypertension (CMS/HCC) Start: 08-02-2024 End: 08-02-2024 Clinisync Result Encounter Generic External Data Provider [facility] External Department Unsolicited Start: 08-02-2024 End: 08-02-2024 Clinisync Result Encounter Generic External Data Provider [facility] External Department Unsolicited Start: 06-23-2024 End: 06-23-2024 ambulatory Meka Munoz [facility] [place] Start: 06-23-2024 End: 06-23-2024 Patient encounter procedure Meka Munoz [facility] [place] Start: 06-17-2024 End: 06-17-2024 Office outpatient visit 25 minutes Daisha Max DO Work Phone: [facility] Comment on above: Liver lesion (Primar y Dx); Liver transplant recipient; High risk medication use; Therapeutic drug monitoring; 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) Start: 06-17-2024 ambulatory ZULY BRUNO Facility: [facility] Start: 05-26-2024 End: 05-26-2024 ambulatory Evan Bolton RPh,PharmD [facility] Start: 05-26-2024 End: 05-26-2024 Patient encounter procedure Evan Bolton RPh,PharmD [facility] [place] Start: 05-13-2024 End: 05-13-2024 ambulatory [facility] Start: 04-18-2024 End: 04-18-2024 ambulatory ZULY BRUNO Not Available Start: 03-24-2024 End: 03-24-2024 Patient encounter procedure Angel Carpio RPh,PharmD [facility] Start: 03-24-2024 End: 03-24-2024 ambulatory Angel Carpio RPh,PharmD [facility] [place] Start: 03-22-2024 End: 03-22-2024 ambulatory JOHNNA HOLLIDAY Not Available Start: 03-02-2024 End: 03-02-2024 ambulatory Meka Alexander [facility] [place] Start: 03-02-2024 End: 03-02-2024 Patient encounter procedure Meka Alexander [facility] [place] Start: 02-26-2024 End: 02-26-2024 Office outpatient new 30 minutes Candie Almaguer MD Work Phone: [facility] Comment on above: Heart failure, diast olic, acute (Primary Dx) Start: 02-11-2024 Patient encounter procedure Generic Provider [facility] Start: 01-16-2024 End: 01-23-2024 Evaluation and management of inpatient Reese Sage MD Work Phone: [email or web address] Comment on above: Pleural effusion on right Start: 01-16-2024 End: 01-23-2024 Patient encounter status Reese Sage MD Work Phone: [facility] Work Phone: Start: 01-12-2024 End: 01-12-2024 ambulatory Angel Fete h,PharmD [facility] Start: 01-12-2024 End: 01-12-2024 Patient encounter procedure Angel Fete RPh,PharmD [facility] [place] Start: 01-08-2024 Clinisync Result Encounter Generic External Data Provider [facility] External Department Unsolicited Start: 01-08-2024 Clinisync Result Encounter Generic External Data Provider [facility] External Department Unsolicited Start: 01-06-2024 End: 01-06-2024 Office outpatient visit 25 minutes Zuly Bruno NP Work Phone: [facility] Comment on above: Bilateral lower extr [...] External Department Unsolicited Start: 10-06-2023 ambulatory Angel Calee RPh,PharmD [facility] Start: 10-06-2023 Patient encounter procedure Angel Madsene RPh,PharmD [facility] Start: 08-28-2023 End: 09-11-2023 Evaluation and management of inpatient Steve Colón Tammy MBBS Work Phone: [email or web address] Start: 08-28-2023 End: 08-28-2023 Office outpatient visit 25 minutes Steve S Tammy MBBS Work Phone: [email or web address] Comment on above: Immunosuppressed sta tus (Primary Dx); Kidney replaced by transplant; Aftercare following organ transplant; High risk medication use; Other general symptoms and signs; Abnormal blood chemistry; Hypertension secondary to other renal disorders Start: 08-19-2023 ambulatory Meka rueda [facility] [place] Start: 08-19-2023 Patient encounter procedure Meka Munoz [facility] [place] Start: 06-12-2023 End: 06-12-2023 Office outpatient visit 25 minutes Steve Colón Tammy MBBS Work Phone: [facility] Comment on above: 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) Start: 06-10-2023 ambulatory Maren Bar RPh,PharmD [facility] [place] Start: 06-10-2023 Patient encounter procedure Maren Bar RPh,PharmD [facility] [place] Start: 04-28-2023 End: 04-29-[address] DOCTOR EVANS Facility: Start: 03-12-2023 ambulatory Angel Fete RPh,PharmD [facility] [place] Start: 03-12-2023 Patient encounter procedure Angel Madsene RPh,PharmD [facility] Start: 03-10-2023 ambulatory Angel Fete RPh,PharmD [facility] Start: 03-10-2023 Patient encounter procedure Angel Carpio RPh,PharmD [facility] [place] Start: 03-02-2023 End: 03-03-[address] DOCTOR EVANS Facility:[facility] Start: 01-16-2023 End: 01-16-2023 Office outpatient visit 25 minutes Daisha Tray Max DO Work Phone: [facility] [[email or web address] Comment on above: Abnormal [...] MD Work Phone: [facility] Comment on above: BPH with obstruction /lower urinary tract symptoms (Primary Dx); Encounter for screening for malignant neoplasm of prostate Start: 08-28-2022 End: 08-29-2022 ambulatory ROB BRUNO Facility:[facility] Start: 08-14-2022 End: 08-15-[address] DOCTOR EVANS Facility:[facility] Start: 07-07-2022 End: 07-07-2022 Patient encounter procedure Ryan Yepez MD Work Phone: [facility] Comment on above: Other hydronephrosis (Primary Dx); [...] MD Work Phone: [facility] Comment on above: Other hydronephrosis (Primary Dx) [...] Phone: [facility] Comment on above: Immunosuppressed [...] LAWRENCE Facility:[facility] Start: 03-14-2022 ambulatory Comfort Rivera [facility] Work Phone: [facility] [place] Start: 03-14-2022 Patient encounter procedure Comfort Rivera [facility] Work Phone: [facility] Start: 06-14-2021 End: 06-14-2021 ambulatory Comfort Rivera [facility] Work Phone: [facility] Start: 06-14-2021 Patient encounter procedure Comfort Rivera [facility] Work Phone: [facility] Start: 01-20-2020 End: 01-27-2020 Patient encounter procedure PEPE CASE Facility:[facility] Start: 01-06-2020 End: 01-07-2020 Patient encounter procedure RENA GUDINO [facility] Start: 01-06-2020 End: 01-06-2020 Subsequent hospital visit by physician [facility] Start: 10-24-2019 End: 10-25-2019 Patient encounter procedure TANA Colón [facility] Start: 10-24-2019 End: 10-24-2019 Subsequent hospital visit by physician [facility] Start: 08-27-2019 End: 08-28-2019 [facility] Start: 08-27-2019 End: 08-27-2019 Subsequent hospital visit by physician [facility] Start: 08-08-2019 End: 08-09-2019 [facility] Start: 08-08-2019 End: 08-08-2019 Subsequent hospital visit by physician [facility] Start: 08-03-2019 End: 08-04-2019 Patient encounter procedure [facility] Start: 08-03-2019 End: 08-03-2019 Subsequent hospital visit by physician [facility] Start: 08-01-2019 End: 08-02-2019 Patient encounter procedure [facility] Start: 08-01-2019 End: 08-01-2019 Subsequent hospital visit by physician [facility] Start: 06-10-2019 End: 06-11-2019 Patient encounter procedure [facility] Start: 06-01-2019 End: 06-02-2019 Patient encounter procedure [facility] Start: 01-14-2019 End: 01-15-2019 Patient encounter procedure [facility] Start: 11-17-2018 End: 11-17-2018 Patient encounter procedure Melania Pierson [facility] Pre Transplant Office Comment on above: Social Work Follow-u p Start: 10-19-2018 End: 10-19-2018 Patient encounter Autumn Rooney [facility] Pre Transplant Office Comment on [...] 10-13-2018 End: 10-13-2018 Patient encounter procedure Autumn [facility] Pre Transplant Office Comment on above: Reschedule Outside Medical Allan rds Request Start: 10-12-2018 End: 10-12-2018 Patient encounter procedure Sophie Fallonandrei [facility] Pre Transplant Office Comment on above: Alcoholic cirrhosis, unspecified whether ascites present (Primary Dx); Pre-transplant evaluation for liver transplant Start: 10-12-2018 End: 10-12-2018 Office outpatient new 60 minutes Alfredito Restrepo Work Phone: [facility] Pre Transplant Office Comment on above: Alcoholic cirrhosis, unspecified whether ascites present; ESRD (end stage renal disease) on dialysis; Pre-transplant evaluation for liver transplant Start: 10-06-2018 End: 10-06-2018 Patient encounter procedure Yovani Orr Work Phone: Department of Radiology Comment on above: Canceled (Insurance Company Redirected Pt) Start: 10-05-2018 Patient encounter status Comfort Rivera [facility] Work Phone: [facility] Procedures Date Procedure Procedure Detail Performing Clinician Start: 03-08-2025 CALCIUM 24 HOUR URINE Generic External Data Provider Start: 03-08-2025 CREATININE 24 HOUR URINE Generic Externa l Data Provider Start: 03-08-2025 SODIUM 24 HOUR URINE Generic External Data Provider Start: 03-07-2025 ALL CBC WITH AUTO DIFF Generic External Data Provider Start: 02-08-2025 End: 02-08-2025 H/O: liver recipient History of liver transplant Zuly Bruno TURNER OFF Work Phone: Start: 02-08-2025 History of renal transplant History of kidney transplant Zuly Bruno TURNER OFF Work Phone: Start: 01-31-2025 ALL CBC WITH AUTO DIFF Generic External Data Provider Start: 01-02-2025 History of renal transplant Steph X Orz ech Start: 12-28-2024 ALL CBC WITH AUTO DIFF Generic External Data Provider Start: 12-26-2024 End: 12-26-2024 Esophagogastroduodenoscopy Zuly Bruno Work Phone: Start: 12-26-2024 Colonoscopy Generic Provider Start: 12-26-2024 Colonoscopy Steph Orzech Start: 11-22-2024 History of renal transplant Steph [...] Provider Start: 01-23-2024 Glucose measurement, blood Kelvin Smith MD, MBAPOORVA Work Phone: Start: 01-23-2024 Glucose [...] MD Work Phone: Start: 01-20-2024 ITRACONAZOLE LEVEL Melania Alarcon [facility] Work Phone: Start: 01-20-2024 Oscillating positive [...] Start: 01-19-2024 Iadna nos quantification each organism Melania Alarcon [facility] Work Phone: Start: 01-18-2024 Echo tthrc [...] AURIS SCREEN BY PCR Carol Ann avelar ADDICTION SOCIAL WORKER-POWER TECHNICIAN Work Phone: Start: 01-08-2024 ALL CBC [...] SCREEN BY PCR Carol Ann Rollins ll ADDICTION SOCIAL WORKER-POWER TECHNICIAN Work Phone: Start: 08-28-2023 CBC AND [...] on above: Performed By: #### CMP #### [facility] [address] [place] [address] Dr. Dwight Waters Start: 07-07-2022 Rmvl nfros [...] liver recipient S/P liver transplant Comfort Rivera [facility] Work Phone: Start: 04-08-2020 H/O: liver recipient Liver transplant recipient Comfort Rivera [facility] Work Phone: Start: 01-06-2020 Potassium serum plasma/whole blood ROB KASMANI Start: 01-06-2020 Potassium serum plasma/whole blood Kimgogo Albertt Work Phone: Start: 11-30-2019 Transplant of kidney Steph Almodovar Start: 11-30-[address] [facility] Start: 10-24-2019 HEMOGLOBIN AND HEMATOCRIT, BLOOD ROB [...] transplant -donor kidney transplant recipient Comfort Rivera [facility] Work Phone: Start: 06-10-2019 HEMOGLOBIN AND HEMATOCRIT, BLOOD ROB K ASMANI Start: 06-01-2019 Blood count hemoglobin ROB KASMANI Start: 03-22-2019 Lipid 1996 panel - Serum or Plasma Comfort Rivera [facility] Work Phone: Start: 01-14-2019 Potassium serum [...] repla vida by transplant Steve S Tammy LEIGH Work Phone: H/O: liver recipient Liver trans plant recipient Daisha A Sobotka DO Work Phone: H/O: liver recipient S/P liver transplant Generic Provider H/O: liver recipient Liver trans plant recipient Daisha A Sobotka DO Work Phone: H/O: liver recipient Liver trans plant status Zuly Bruno TURNER OFF Work Phone: H/O: liver recipient S/P liver transplant (CMS/HCC) Zuly Bruno TURNER OFF Work Phone: H/O: liver recipient Liver trans plant status (CMS/HCC) Zuly Bruno TURNER OFF Work Phone: H/O: liver recipient Liver trans plant status Tony Hernandez MD Work Phone: H/O: liver recipient Liver trans [...] Kidn ey replaced by transplant Rebeca Gutierrez ADDICTION SOCIAL WORKER-BIOMASS PLANT TECHNICIAN Work Phone: Plan of Treatment Date Care Activity Detail Author Start: 12-26-2034 Screening for malignant neoplasm of colon [facility] Start: 09-20-2029 Screening for malignant neoplasm of colon [facility] Start: 10-24-2025 Potassium [Moles/volume] in Serum or Plasma POTASSIUM [facility] Start: 09-19-2025 End: 09-19-2025 Patient encounter procedure 09/19/2025 9:30 AM EDT Office Visit [facility] [address] [place] [address] Tony Hernandez MD [address] [place] [address] [facility] Start: 08-15-2025 Potassium [Moles/volume] in Serum or Plasma POTASSIUM [facility] Start: 07-04-2025 Potassium [Moles/volume] in Serum or Plasma POTASSIUM [facility] Start: 06-20-2025 Potassium [Moles/volume] in Serum or Plasma POTASSIUM [facility] Start: 06-16-2025 End: 06-16-2025 Patient encounter procedure [facility] Start: 06-13-2025 Potassium [Moles/volume] in Serum or Plasma POTASSIUM [facility] Start: 05-23-2025 Potassium [Moles/volume] in Serum or Plasma POTASSIUM [facility] Start: 05-11-2025 End: 05-11-2025 Patient encounter procedure 05/11/2025 10:00 AM EDT Office Visit [facility] [address] [place] [address] Zuly Bruno NP [address] [place] [address] [facility] Start: 03-28-2025 Potassium [Moles/volume] in Serum or Plasma POTASSIUM [facility] Start: 03-21-2025 End: 03-21-2026 25-hydroxyvitamin D3 [Mass/volume] in Serum or Plasma Vitamin D 25 hydroxy Total Lab Routine Vitamin D deficiency Expected: 03/21/2025 (Approximate), Expires: 03/21/2026 [facility] Comment on above: Expected: 03/21/2025 (Approximate), Expi res: 03/21/2026 Start: 03-21-2025 End: 03-21-2026 Magnesium [Mass/volume] in Serum or Plasma Magnesium Lab Routine Other osteoporosis without current pathological fracture Expected: 03/21/2025 (Approximate), Expires: 03/21/2026 [facility] Work Phone: Comment on above: Expected: 03/21/2025 (Approximate), Expi res: 03/21/2026 Start: 03-21-2025 End: 03-21-2026 Parathyrin.intact [Mass/volume] in Serum or Plasma PTH, intact Lab Routine Other osteoporosis without current pathological fracture Expected: 03/21/2025 (Approximate), Expires: 03/21/2026 [facility] Comment on above: Expected: 03/21/2025 (Approximate), Expi res: 03/21/2026 Start: 03-21-2025 Potassium [Moles/volume] in Serum or Plasma POTASSIUM [facility] Start: 03-21-2025 End: 03-21-2026 Renal function panel Renal function panel Lab Routine Other osteoporosis without current pathological fracture Expected: 03/21/2025 (Approximate), Expires: 03/21/2026 [facility] Comment on above: Expected: 03/21/2025 (Approximate), Expi res: 03/21/2026 Start: 03-21-2025 End: 03-21-[address] [facility] Comment on above: Arrived Start: 02-28-2025 End: 02-28-2026 25-hydroxyvitamin D3 [Mass/volume] in Serum or Plasma Vitamin D 25 hydroxy Lab Routine Other osteoporosis without current pathological fracture ([facility]/HCC) Expected: 02/28/2025 (Approximate), Expires: 02/28/2026 [facility] Comment on above: Expected: 02/28/2025 (Approximate), Expi res: 02/28/2026 Start: 02-28-2025 End: 02-28-2026 Calcium, urine, 24 hour Calcium, urine, 24 hour Lab Routine Other osteoporosis without current pathological fracture ([facility]/HCC) Expected: 02/28/2025 (Approximate), Expires: 02/28/2026 [facility] Comment on above: Expected: 02/28/2025 (Approximate), Expi res: 02/28/2026 Start: 02-28-2025 End: 02-28-2026 Creatinine, urine, 24 hour Creatinine, urine, 24 hour Lab Routine Other osteoporosis without current pathological fracture ([facility]/HCC) Expected: 02/28/2025 (Approximate), Expires: 02/28/2026 [facility] Comment on above: Expected: 02/28/2025 (Approximate), Expi res: 02/28/2026 Start: 02-28-2025 End: 02-28-2026 Magnesium [Mass/volume] in Serum or Plasma Magnesium Lab Routine Other osteoporosis without current pathological fracture ([facility]/HCC) Expected: 02/28/2025 (Approximate), Expires: 02/28/2026 [facility] Work Phone: Comment on above: Expected: 02/28/2025 (Approximate), Expi res: 02/28/2026 Start: 02-28-2025 End: 02-28-2026 Parathyrin.intact [Mass/volume] in Serum or Plasma PTH, intact Lab Routine Other osteoporosis without current pathological fracture (CMS/HCC) Expected: 02/28/2025 (Approximate), Expires: 02/28/2026 [facility] Comment on above: Expected: 02/28/2025 (Approximate), Expi res: 02/28/2026 Start: 02-28-2025 Potassium [Moles/volume] in Serum or Plasma POTASSIUM [facility] Start: 02-28-2025 End: 02-28-2026 Renal function panel Renal function panel Lab Routine Other osteoporosis without current pathological fracture (CMS/HCC) Expected: 02/28/2025 (Approximate), Expires: 02/28/2026 [facility] Comment on above: Expected: 02/28/2025 (Approximate), Expi res: 02/28/2026 Start: 02-28-2025 End: 02-28-2026 Sodium, urine, 24 hour Sodium, urine, 24 hour Lab Routine Other osteoporosis without current pathological fracture (CMS/HCC) Expected: 02/28/2025 (Approximate), Expires: 02/28/2026 [facility] Comment on above: Expected: 02/28/2025 (Approximate), Expi res: 02/28/2026 Start: 02-28-2025 End: 02-28-2025 [facility] Comment on above: Other osteoporosis without current patho logical fracture; Liver transplant status; Organ transplant Start: 02-10-2025 Medicare Annual Wellness (AWV) Medicare Annual Wellness (AWV) [facility] Start: 02-08-2025 End: 02-08-2025 Patient encounter procedure 02/08/2025 8:40 AM EDT Office Visit [facility] [address] [place] [address] Zuly Bruno NP [address] [place] [phone] [facility] Start: 01-23-2025 Potassium [Moles/volume] in Serum or Plasma POTASSIUM [facility] Start: 12-26-2024 [facility] Start: 11-07-2024 End: 11-07-2024 Patient encounter procedure 11/07/2024 2:20 PM EST [facility] [address] [place] [address] Zuly Bruno NP [address] [place] [phone] [facility] Start: 10-25-2024 End: 10-25-2024 Patient encounter procedure 10/25/2024 8:40 AM EST Office Visit [facility] [address] [place] [phone] Zuly Bruno NP [address] [place] [address] [facility] Start: 09-29-2024 Influenza vaccination Influenza Vaccine (#1) [facility] Comment on above: Postponed from 07/31/2024 (Patient Refus ed) Start: 09-07-2024 End: 09-07-2024 Telemedicine consultation with patient 09/07/2024 3:00 PM EDT Telemedicine Infectious Diseases Care [facility] [address] [facility] 4th [place] [phone] Evan White DO [address] [place] [address] [facility] Start: 08-31-2024 Screening for malignant neoplasm of lung [facility] Start: 08-23-2024 End: 08-23-2025 Bacteria identified in Urine by Culture Urine culture (clean catch) Microbiology Routine Dysuria Expected: 08/23/2024 (Approximate), Expires: 08/23/2025 [facility] Comment on above: Expected: 08/23/2024 (Approximate), Expi res: 08/23/2025 Start: 08-23-2024 End: 08-23-2025 DXA Skeletal system Views for bone density DEXA bone density Imaging Routine Immunocompromised ([facility]) Organ transplant Expected: 08/23/2024, Expires: 08/23/2025 [facility] Work Phone: Comment on above: Expected: 08/23/2024, Expires: Start: 08-23-2024 End: 08-23-2025 Hemoglobin A1c/Hemoglobin.total in Blood Hemoglobin A1c Lab Routine Blood glucose elevated Expected: 08/23/2024 (Approximate), Expires: 08/23/2025 [facility] Comment on above: Expected: 08/23/2024 (Approximate), Expi res: 08/23/2025 Start: 08-23-2024 End: 08-23-2025 Lipid 1996 panel - Serum or Plasma Lipid panel Lab Routine Mixed hyperlipidemia (CMS/HCC) Expected: 08/23/2024 (Approximate), Expires: 08/23/2025 [facility] Comment on above: Expected: 08/23/2024 (Approximate), Expi res: 08/23/2025 Start: 08-23-2024 End: 08-23-2025 Prostate specific Ag [Mass/volume] in Serum or Plasma PSA Lab Routine Prostate cancer screening Expected: 08/23/2024 (Approximate), Expires: 08/23/2025 [facility] Comment on above: Expected: 08/23/2024 (Approximate), Expi res: 08/23/2025 Start: 08-23-2024 End: 08-23-2025 Thyrotropin [Units/volume] in Serum or Plasma TSH Lab Routine Tremor Expected: 08/23/2024 (Approximate), Expires: 08/23/2025 [facility] Comment on above: Expected: 08/23/2024 (Approximate), Expi res: 08/23/2025 Start: 08-23-2024 End: 08-23-2025 Urinalysis complete panel - Urine Urinalysis with reflex microscopic (clean catch) Lab Routine Dysuria Expected: 08/23/2024 (Approximate), Expires: 08/23/2025 [facility] Comment on above: Expected: 08/23/2024 (Approximate), Expi res: 08/23/2025 Start: 08-23-2024 End: 08-23-2025 US.doppler Carotid arteries - bilateral Vascular US carotid artery duplex bilateral Imaging Routine Left carotid bruit Mixed hyperlipidemia (CMS/HCC) Expected: 08/23/2024, Expires: 08/23/2025 [facility] Comment on above: Expected: 08/23/2024, Expires: Start: 08-23-2024 End: 08-23-2024 Patient encounter procedure 08/23/2024 8:40 AM EDT Office Visit [facility] [address] [place] [address] Zuly Bruno, TURNER OFF [address] [place] [phone] Primary hypertension (CMS/HCC) (Primary Dx); Portal hypertension (CMS/HCC); Alcoholic cirrhosis of liver without ascites (CMS/HCC) [facility] Comment on above: Primary hypertension (CMS/HCC) (Primary Dx); Portal hypertension (CMS/HCC); Alcoholic cirrhosis of liver without ascites (CMS/HCC) Start: 08-22-2024 End: 08-22-2024 Patient encounter procedure 08/22/2024 9:00 AM EDT [facility] [address] [place] [phone] Zuly Bruno NP [address] [place] [address] [facility] Start: 07-31-2024 Influenza vaccination INFLUENZA VACCINE (#1) [facility] Start: 06-17-2024 End: 06-17-2024 ambulatory [email or web address] Start: 06-17-2024 End: 06-17-2024 Patient encounter procedure [email or web address] Transplant [facility] Start: 03-22-2024 Fasting lipid profile LIPID SCREENING [facility] Start: 03-22-2024 Lipid panel [facility] Start: 02-26-2024 End: 02-26-2024 Patient encounter procedure 02/26/2024 9:30 AM EDT Office Visit [facility] [address] [place] [phone] Candie Almaguer MD [address] [place] [phone] [facility] Start: 02-11-2024 End: 02-11-2024 Patient encounter procedure 02/11/2024 10:30 AM EDT Office Visit [facility] [address] [place] [address] Zuly Bruno, BA [address] [place] [phone] [facility] Start: 02-09-2024 End: 02-09-2024 Telemedicine consultation with patient 02/09/2024 3:30 PM EDT Telemedicine Infectious Diseases Care [facility] [address] [facility] [address] [place] [address] Cristóbal Ko MD [address] [place] [address] [facility] Start: 01-15-2024 End: 01-15-2024 ambulatory [facility] [[email or web address] Transplant [facility] Start: 01-15-2024 End: 01-15-2024 Patient encounter procedure [facility] [[email or web address] Transplant [facility] Start: 01-06-2024 End: 01-06-2026 Echocardiogram 2D complete Echocardiogram 2D complete Echocardiography Routine DARLENE (obstructive sleep apnea) Primary hypertension (CMS/HCC) Bilateral lower extremity edema Shortness of breath Expected: 01/06/2024 (Approximate), Expires: 01/06/2026 [facility] Work Phone: Comment on above: Expected: 01/06/2024 (Approximate), Expi res: 01/06/2026 Start: 01-06-2024 End: 01-06-2024 Patient encounter procedure 01/06/2024 9:00 AM EST Office Visit [facility] [address] [place] [address] Zuly Bruno, BA [address] [place] [phone] [facility] Start: 12-08-2023 End: 09-07-2024 CT Chest WO contrast [facility] Work Phone: Start: 12-01-2023 COVID-19 VACCINE (2 - Moderna risk series) COVID-19 VACCINE (2 - Moderna risk series) [facility] Start: 09-23-2023 End: 09-23-[address] [facility] Start: 09-23-2023 End: 09-23-2023 Telemedicine consultation with patient 09/23/2023 4:00 PM EDT Telemedicine Infectious [facility] [address] [place] [address] Cristóbal Ko MD [address] 4th [place] [address] [facility] Start: 09-15-2023 End: 09-10-2024 ITRACONAZOLE LEVEL [facility] Start: 08-25-2023 End: 08-25-2024 ALLOSCREEN RECIPIENT (POST TX PRA) ALLOSCREEN RECIPIENT (POST TX PRA) Lab Routine Kidney replaced by transplant Aftercare following organ transplant Immunosuppressed status High risk medication use Other general symptoms and signs Abnormal blood chemistry Expected: 08/25/2023, Expires: 08/25/2024 [facility] Comment on above: Expected: 08/25/2023, Expires: Start: 07-31-2023 Influenza vaccination [facility] Start: 06-12-2023 End: 06-12-2023 Patient encounter procedure 06/12/2023 Office Visit Transplant Surgery Steve Munoz MBBS [address] [place] [address] [facility] Start: 03-11-2023 End: 03-11-2023 Telemedicine consultation with patient 03/11/2023 Telemedicine Urology Ryan Yepez MD [address] [facility] [address] [place] [address] [facility] Start: 01-16-2023 End: 01-16-2023 Patient encounter procedure 01/16/2023 Office Visit Transplant Surgery [facility] [[email or web address] Start: 10-31-2022 End: 10-31-2022 Patient encounter procedure 10/31/2022 Office Visit Transplant Surgery Steve Munoz, LU [address] [place] [address] [email or web address] Start: 09-10-2022 End: 09-10-2023 PSA screening PSA, SCREENING Lab Routine BPH with obstruction/lower urinary tract symptoms Encounter for screening for malignant neoplasm of prostate Expected: 09/10/2022 (Approximate), Expires: 09/10/2023 [facility] Comment on above: Expected: 09/10/2022 (Approximate), Expi res: 09/10/2023 Start: 08-11-2022 End: 08-11-2022 Patient encounter procedure 08/11/2022 Office Visit Urology Ryan Yepez MD [address] [place], [place] [address] [address] [place] [id number] [facility] Start: 07-31-2022 Influenza vaccination [facility] Start: 07-07-2022 End: 07-07-2022 Patient encounter procedure 07/07/2022 Office Visit [facility] [address] [facility] [address] [place] [address] [facility] Start: 07-07-2022 End: 07-07-2023 FLUORO IMAGING FOR UROLOGY [facility] Comment on above: Expected: 07/07/2022, Expires: 3 1 Occurrences starti ng 07/07/2022 until 07/07/2022 Start: 06-27-2022 End: 06-27-2022 Patient encounter procedure 06/27/2022 Office Visit UrologRyan Batista MD [address] [place] [address] [address] [place] [address] [facility] Start: 06-27-2022 End: 06-27-2023 Basic metabolic 2000 panel - Serum or Plasma BASIC METABOLIC PANEL Lab Routine Other hydronephrosis Expected: 06/27/2022, Expires: 06/27/2023 [facility] Comment on above: Expected: 06/27/2022, Expires: 3 Start: 06-27-2022 End: 06-27-2022 Patient encounter procedure 06/27/2022 Appointment Computerized Tomography Scan Ryan Yepez MD [address] [facility] [address] [place] [address] Department of Radiology Start: 06-15-2022 End: 05-16-2023 CT Abdomen and Pelvis WO contrast CT ABDOMEN/PELVIS WITHOUT CONTRAST Imaging Routine FAEY (acute kidney injury) Expected: 06/15/2022 (Approximate), Expires: 05/16/2023 [facility] Work Phone: Comment on above: Expected: 06/15/2022 (Approximate), Expi res: 05/16/2023 Start: 06-12-2022 End: 06-12-2022 Patient encounter procedure 06/12/2022 Office Visit Transplant Surgery Steve Munoz, LU [address] [place] [address] [facility] Start: 06-11-2022 End: 06-11-2023 BK VIRUS DNA QN, PCR, PLASMA BK VIRUS DNA QN, PCR, PLASMA Lab Routine Kidney replaced by transplant Liver replaced by transplant Abnormal blood chemistry Expected: 06/11/2022, Expires: 06/11/2023 [facility] Comment on above: Expected: 06/11/2022, Expires: 3 Start: 06-04-2022 End: 06-04-2022 Patient encounter procedure 06/04/2022 Office Visit [facility] Start: 10-18-2021 End: 10-18-2021 Patient encounter procedure 10/18/2021 Office Visit Transplant Surgery Steve Munoz, LU [address] [place] [address] [facility] Start: 07-31-2021 Influenza vaccination INFLUENZA VACCINE (#1) [facility] Start: 07-26-2021 End: 07-26-2021 Patient encounter procedure 07/26/2021 Office Visit Transplant Surgery [facility] Start: 2021 Prostate specific antigen measurement [facility] Start: 2021 Screening for malignant neoplasm of lung LUNG CANCER SCREENING [facility] Start: 2021 Zoster vaccine hzv live for subcutaneous use ZOSTER (SHINGLES) VACCINE (1 of 2) [facility] Start: 09-20-2020 Colonoscopy COLORECTAL CANCER SCREENING DISCUSSION [facility] Start: 09-20-2020 Screening for malignant neoplasm of colon [facility] Start: 07-31-2019 Influenza vaccination Flu vaccine (#1) [place], [place] Start: 05-22-2019 Annual Wellness Visit (AWV) Annual Wellness Visit (AWV) [place] Start: 04-18-2019 End: 10-19-2019 Ultrasonography of abdomen US ABDOMEN RUQ/LIVER/GB Routine Cirrhosis of liver without ascites, unspecified hepatic cirrhosis type Expected: 04/18/2019 (Approximate), Expires: 10/19/2019 [facility] Work Phone: Comment on above: Expected: 04/18/2019 (Approximate), Expi res: 10/19/2019 Start: 01-25-2019 End: 01-25-2019 Ambulatory 01/25/2019 Office Visit Gastroenterology Christin Elizabeth, ADDICTION SOCIAL WORKER-[employer]OMASS PLANT TECHNICIAN [address] [place] [address] Division of Gastroenterology [...] for liver transplant Expected: 10/12/2018, Expires: 10/12/2019 [facility] Work Phone: Comment on above: Expected: 10/12/2018, Expires: 9 Start: 10-12-2018 End: 10-12-2019 TYPE AND SCREEN - NOT FOR TRANSFUSION TYPE AND SCREEN - NOT FOR TRANSFUSION Routine Alcoholic cirrhosis, unspecified whether ascites present Pre-transplant evaluation for liver transplant Expected: 10/12/2018, Expires: 10/12/2019 [facility] Work Phone: Comment on above: Expected: 10/12/2018, Expires: 9 Start: 07-31-2018 Influenza vaccination INFLUENZA VACCINE (#1) [facility] Work Phone: Start: 2011 Fasting lipid profile LIPID SCREENING [facility] Work Phone: Start: 2011 Lipid screen Lipid screen [place], [place] Start: 1990 DTaP/Tdap/Td vaccine (1 - Tdap) DTaP/Tdap/Td vaccine (1 - Tdap) [place], [place] Start: 1990 Hepatitis B vaccination HEP B VACCINE (1 of 3 - 19+ 3-dose series) [facility] Start: 1990 Hepatitis B Vaccine (1 of 3 - Risk Recombivax 3-dose series) Hepatitis B Vaccine (1 of 3 - Risk Recombivax 3-dose series) [place] Start: 1990 Third diphtheria, tetanus and acellular pertussis (DTaP) vaccination [facility] Start: 1990 Zoster vaccine hzv live for subcutaneous use ZOSTER (SHINGLES) VACCINE (1 of 2) [facility] Start: 1990 [facility] Start: 1989 Tetanus vaccination TETANUS [facility] Start: 1986 HIV screen HIV screen [place], [place] Start: 02-17-1984 HIV screening HIV SCREENING DISCUSSION [facility] Work Phone: Start: 1983 COVID-19 VACCINE (1) COVID-19 VACCINE (1) [facility] Start: 1982 DTaP/Tdap/Td vaccine (1 - Tdap) DTaP/Tdap/Td vaccine (1 - Tdap) [place] Start: 1977 Pneumococcal 0-64 years Vaccine (1 of 3 - PCV13) Pneumococcal 0-64 years Vaccine (1 of 3 - PCV13) [place] Start: 1977 PNEUMOCOCCAL VACCINE SERIES (1 - PCV) PNEUMOCOCCAL VACCINE SERIES (1 - PCV) [facility] Start: 1977 PNEUMOCOCCAL VACCINE SERIES (1 of 2 - PCV) PNEUMOCOCCAL VACCINE SERIES (1 of 2 - PCV) [facility] Start: 1977 [facility] Start: 02-17-1976 COVID-19 VACCINE (#1) COVID-19 VACCINE (#1) [facility] Start: 02-17-1976 [facility] Start: 1971 COVID-19 VACCINE (#1) COVID-19 VACCINE (#1) [facility] Start: 1971 Hepatitis B vaccination HEP B VACCINE (1 of 3 - 3-dose series) [facility] Start: 1971 Medicare Annual Wellness (AWV) Medicare Annual Wellness (AWV) [facility] Start: 1971 Screening for malignant neoplasm of colon [facility] Start: 1971 Tetanus vaccination [facility] BK VIRUS DNA QN, PCR , PLASMA BK VIRUS DNA QN, PCR, PLASMA Lab Routine Kidney replaced by transplant Liver replaced by transplant Abnormal blood chemistry 06/12/2022 3:38 PM EDT [facility] CALCULI, URINARY (KIDNEY STONE) CALCULI, URINARY (KIDNEY STONE) Fluids Routine 05/19/2022 8:16 AM EDT [facility] Work Phone: CANNABINOIDS, QUANT (URINE)THC CONFIRMATION CANNABINOIDS, QUANT (URINE)THC CONFIRMATION Routine Alcoholic cirrhosis, unspecified whether ascites present ESRD (end stage renal disease) on dialysis Pre-transplant evaluation for liver transplant 10/12/2018 12:57 PM [facility] Work Phone: End: 09-10-2024 CHEM 6 (LYTES, BUN CREA) [facility] EBV VCA IGG AB EBV VCA IGG AB R outine Alcoholic cirrhosis, unspecified whether ascites present ESRD (end stage renal disease) on dialysis Pre-transplant evaluation for liver transplant 10/12/2018 12:57 PM [facility] Work Phone: Fungus identified in Unspecified specimen by Culture [facility] HLA TYPING (SOLID ORGAN) HLA TYPING (SOLID ORGAN) Routine Alcoholic cirrhosis, unspecified whether ascites present ESRD (end stage renal disease) on dialysis Pre-transplant evaluation for liver transplant 10/12/2018 12:57 PM [facility] Work Phone: HSV 1 AND 2 IGG ANTIBODY HSV 1 AND 2 IGG ANTIBODY Routine Alcoholic cirrhosis, unspecified whether ascites present ESRD (end stage renal disease) on dialysis Pre-transplant evaluation for liver transplant 10/12/2018 12:57 PM [facility] Work Phone: MR Abdomen WO and W contrast IV MRI ABDOMEN WITH AND WITHOUT CONTRAST Imaging Routine Liver lesion Ordered: 06/17/2024 [facility] Comment on above: Ordered: 06/17/2024 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 specific culture [facility] Patient Education Hemorrhoids ED Diverticulosis Know your Meds [facility] Work Phone: PLACEMENT NEPHROSTOM Y CATHETER PERCUTANEOUS W/ IMAGE GUIDANCE PLACEMENT NEPHROSTOMY CATHETER PERCUTANEOUS W/ IMAGE GUIDANCE Imaging Routine Hydronephrosis due to obstruction of ureteral orifice FAYE (acute kidney injury) 05/17/2022 11:08 AM EDT [facility] SC POST VOID RESIDUAL SC POST VO ID RESIDUAL SC - OFFICE PERFORMED Routine BPH with obstruction/lower urinary tract symptoms Ordered: 09/10/2022 [facility] Comment on above: Ordered: 09/10/2022 PTH INTACT PTH INTACT Routi ne Alcoholic cirrhosis, unspecified whether ascites present ESRD (end stage renal disease) on dialysis Pre-transplant evaluation for liver transplant 10/12/2018 12:57 PM [facility] Work Phone: RUBEOLA IGG AB (IMMU NE STATUS) RUBEOLA IGG AB (IMMUNE STATUS) Routine Alcoholic cirrhosis, unspecified whether ascites present ESRD (end stage renal disease) on dialysis Pre-transplant evaluation for liver transplant 10/12/2018 12:57 PM [facility] Work Phone: End: 01-16-2024 Standard ECG ECG ECG Routine One Time for 1 Occurrences starting 01/16/2024 until 01/16/2024 [facility] Comment on above: One Time for 1 Occurrences starting 12/31 until 01/16/2024 End: 09-10-2024 TACROLIMUS LEVEL, TROUGH (PRE DRUG LEVEL) [facility] VARICELLA IGG AB (IM M STATUS) VARICELLA IGG AB (IMM STATUS) Routine Alcoholic cirrhosis, unspecified whether ascites present ESRD (end stage renal disease) on dialysis Pre-transplant evaluation for liver transplant 10/12/2018 12:57 PM [facility] Work Phone: Immunizations Immunization Date Immunization Notes Care Provider Zeeshan yi 11-01-2024 influenza virus vaccine, unspecified formulation Steph Almodovar [facility] 11-01-2024 influenza, seasonal, injectable, preservative free Zuly Bruno NP Work Phone: [facility] 11-03-2023 influenza virus vaccine, unspecified formulation Generic Provider [facility] 11-03-2023 Influenza, injectabl e, Madin Jing Canine Kidney, preservative free, quadrivalent Generic Provider [facility] 11-03-2023 Moderna SARS-CoV-2 50mcg/0.5mL Booster Generic Provider [facility] 08-28-2022 influenza virus vaccine, unspecified formulation Steph Orzech [facility] 08-28-2022 influenza, injectabl e, quadrivalent, preservative free Generic Provider [facility] 09-30-2021 influenza virus vaccine, unspecified formulation Steph Orzech [facility] 09-30-2021 influenza, injectabl e, quadrivalent, preservative free Generic Provider [facility] 09-30-2021 SARS-CoV-2 (COVID-19 ) mRNA-1273 vaccine Steph Orzech [facility] 02-21-2021 SARS-CoV-2 (COVID-19 ) mRNA-1273 vaccine Steph Orzech [facility] 01-24-2021 SARS-CoV-2 (COVID-19 ) mRNA-1273 vaccine Steph Orzech [facility] 10-16-2020 influenza virus vaccine, unspecified formulation Steph Orzech [facility] 10-16-2020 influenza, injectabl e, quadrivalent, contains preservative Generic Provider [facility] Payers Date Payer Category Payer Self-pay 2019 Unknown [id number] 2019 Unknown [facility] [id number] 2019-Present [id number] 2018 [facility] [place]ID [place] [facility] DEPT OF JOB xxxxxxxxxxxx 2018-Present [phone] [address] [place] [address] xxxxxxxxxxxx [id number] 2018 Medicaid MEDICAID MEDICAI D [id number] 2018-Present [address] [place] [address] [id number] .[id number] 2018 Medicaid [id number] .[id number] 2018 Medicare MEDICARE MEDICAR E PART A AND B xxxxxxxxxxx 2018-Present [phone] [address] [address] [place] [address] xxxxxxxxxxx [id number] .[id number] 2018 Medicare [id number] 2018 Medicare MEDICARE MEDICAR E A AND B [id number] 2018-Present [address] [place] [address] [id number] .[id number] 2018 Medicare [id number] 1.13.172.2.7.3 .[id number] 1971 Unknown [id number] 2.16.840.1.169525.3.579.2.173 1971 Unknown [id number] 2.16.840.1.539588.3.579.2.173 1971 Unknown [id number] 2.16.840.1.530507.3.579.2.173 1971 Unknown [id number] 2.16.840.1.143041.3.579.2.173 1971 Unknown [id number] 2.16.840.1.819138.3.579.2.173 1971 Unknown [id number] 2.16.840.1.584622.3.579.2.173 1971 Unknown [id number] 2.16.840.1.459627.3.579.2.173 1971 Unknown [id number] 2.16.840.1.013768.3.579.2.173 1971 Unknown [id number] 2.16.840.1.715677.3.579.2.647 1971 Unknown [id number] 2.16.840.1.248535.3.579.2.593 1971 Unknown [id number] 2.16.840.1.381157.3.579.2.593 1971 Unknown [id number] 2.16.840.1.956282.3.579.2.593 1971 Unknown [id number] 2.16.840.1.652131.3.579.2.593 1971 Unknown [id number] 2.16.840.1.439124.3.579.2.593 1971 Unknown [id number] 2.16.840.1.598015.3.579.2.593 1971 Unknown [id number] 2.16.840.1.199151.3.579.2.593 1971 Unknown [id number] 2.16.840.1.876368.3.579.2.593 1971 Unknown [id number] 2.16.840.1.675547.3.579.2.593 1971 Unknown [id number] 2.16.840.1.278464.3.579.2.593 1971 Unknown [id number] 2.16.840.1.964772.3.579.2.593 1971 Unknown [id number] 2.16.840.1.265853.3.579.2.593 1971 Unknown [id number] 2.16.840.1.270624.3.579.2.593 1971 Unknown [id number] 2.16.840.1.021961.3.579.2.593 1971 Unknown [id number] 2.16.840.1.357471.3.579.2.593 1971 Unknown [id number] 2.16.840.1.746655.3.579.2.125 9 1971 Unknown [id number] 2.16.840.1.187991.3.579.2.125 9 1971 Unknown [id number] 2.840.1.814919.3.579.2.125 9 1971 Unknown [id number] 2.16.840.1.408875.3.579.2.125 9 1971 Unknown [id number] 2.840.1.650946.3.579.2.125 9 1971 Unknown [id number] 2.840.1.022442.3.579.2.125 9 1971 Unknown [id number] 2.840.1.241055.3.579.2.125 9 1971 Unknown [id number] 2.16.840.1.362531.3.579.2.125 9 1971 Unknown [id number] 2.16.840.1.182722.3.579.2.727 1971 Unknown [id number] 2.16.840.1.023224.3.579.2.727 1971 Unknown [id number] 2.16840.1.982914.3.579.2.727 1971 Unknown [id number] 2.16.840.1.517150.3.579.2.727 1971 Unknown [id number] 2.16.840.1.165061.3.579.2.727 1971 Unknown [id number] 2.16.840.1.898468.3.579.2.727 1971 Unknown [id number] 2.16.840.1.254067.3.579.2.594 1971 Unknown [id number] 2.16.840.1.680860.3.579.2.594 1971 Unknown [id number] 2.16.840.1.057869.3.579.2.594 1959 Medicaid [id number] 1959 Medicare [id number] Unknown [id number] 2.16.840.1.451008.3.579.2.531 Social History Date Type Detail Facility Start: 10-19-2018 End: 11-03-2023 Tobacco smoking status NHIS Former smoker [facility] Start: 07-19-1988 End: 05-14-2018 History of tobacco use Current smoker [facility] Work Phone: Start: 07-19-1988 End: 05-14-2018 History of tobacco use Cigarette Smoker [facility] Work Phone: Start: 10-19-2018 End: 02-06-2025 Cigarettes smoked current (pack per day) - Reported [facility] End: 07-19-1994 History of tobacco use Chews Tobacco [facility] Work Phone: Start: 1970 Sex Assigned At Not on file [facility] Work Phone: Start: 11-03-2018 Alcohol intake Current non-drinker of alcohol (finding) [place] Start: 06-22-2018 Alcohol Comment Hx of alcoholism [place] Start: 11-03-2018 End: 02-06-2025 Alcohol intake No [facility] Start: 07-19-2018 Tobacco use and exposure Former user [facility] Start: 09-06-2020 End: 02-08-2025 Alcohol intake Ex-drinker (finding) [facility] Start: 07-19-2018 Alcohol Comment stopped 05/14/2018 [facility] Start: 05-05-2022 End: 01-16-2023 Exposure to SARS-CoV-2 (event) Not sure [facility] Start: 07-07-2018 Gender identity Identifies as male gender (finding) [facility] Start: 01-16-2022 Sexual orientation Heterosexual (finding) [facility] Start: 11-03-2023 Tobacco use and exposure [...] Never smoked tobacco (finding) [facility] Do you belong to any clubs or organizations such as catholic groups, unions, fraternal or athletic groups, or school groups? Yes [facility] Are you now , , , , never or living with a partner? [facility] Start: 12-15-2024 End: 12-26-2024 Sex Male (finding) [facility] Start: 1970 Sex Assigned At Male [facility] Do you feel stress - tense, restless, nervous, or anxious, or unable to sleep at night because your mind is troubled all the time - these days [OSQ] Not at all [facility] Medical Equipment Procedure Code Equipment Code Equipment Original Text Equipment Identifier Dates [id number] Start: 05-23-2020 [id number] Start: 04-12-2020 [id number] [facility] Start: 05-17-2022 Comment on above: Description: Implant time-out completed by intra-procedural staff including this RN, hvac service technician, and performing physician. The following [...] 01-03-2025 Functional Status N/A [facility] 11-22-2024 Functional Status N/A [facility] 09-08-2024 Functional Status N/A [facility] Clinical Notes 06-14-2021 to 03-23-2025 Tony Hernandez MD - 03/21/2025 9:40 AM Matthew Hernandez MD - 02/28/2025 9:10 AM EDT Note Date & Type Note Facility 03-23-2025 Note Patient Education Urology Benign Prostatic Hyperplasia [...] Follow these instructions at home: ??? Take asek-dxc-vyjjxvo and prescription medicines only as told by [...] do not get (more content not included)... [facility] 03-22-2025 Note [place] [facility] Subjective George Styles is a 55 y.o. year old male patient being seen for 1 year follow up. Patient denies chest pain, SOB, dizziness, bleeding/bruising/discoloration or palpitations. C/o of fatigue Patient Active Problem List Diagnosis Acute megaloblastic anemia FAYE (acute kidney injury) Alcoholic cirrhosis (CMS/HCC) Alcoholism (CMS/HCC) Anasarca Anemia Ascites CAD (coronary artery disease) Cardiovascular stress test abnormal Liver failure (CMS/HCC) Chronic liver disease and cirrhosis (CMS/HCC) Chest pain Acute renal failure syndrome Chronic renal failure End-stage renal disease (CMS/HCC) -donor kidney transplant recipient Liver transplant candidate Increased ammonia level History of gastrointestinal hemorrhage Essential hypertension, benign History of liver transplant (CMS/HCC) Pre-transplant evaluation for liver transplant Obesity (BMI 30.0-34.9) Nausea & vomiting Metabolic encephalopathy Hepatic encephalopathy (CMS/HCC) Severe protein-calorie malnutrition (Campos: less than 60% of standard weight) Abdominal pain, generalized Bilateral lower extremity edema Blood glucose elevated BPH with urinary obstruction Calculus of kidney Complication of AV dialysis fistula Complication of dialysis access insertion Decreased urine stream Diastolic dysfunction Dysfunction of papillary muscle Dysuria Eczema Elevated blood uric acid level Erectile dysfunction Gastroesophageal reflux disease Generalized anxiety disorder Heart failure, diastolic, acute (CMS/HCC) Histoplasmosis Hyperlipidemia Hypertension Immunodeficiency, unspecified Insomnia Left carotid bruit DARLENE (obstructive sleep apnea) Other constipation Other osteoporosis without current pathological fracture Panic disorder without agoraphobia Peripheral neuropathy Pleural effusion on right Portal hypertension (CMS/HCC) Shortness of breath Tremor Umbilical hernia Weakness generalized Family History Problem Relation Name Age of Onset Coronary artery disease Mother Coronary artery disease Father Coronary artery disease Sister Coronary artery disease Brother Social History Tobacco Use Smoking status: Former Types: Cigarettes Smokeless tobacco: Never Substance Use Topics Alcohol use: Not Currently Drug use: Never HPI George is seen in follow up. He is a 55 yo man with history of ESRD was [...] dizziness or lightheadedness. No shortness of breath. he reports that he was taken off of atorvastatin when he was treated with antifungal medication but he never was placed back on atorvastatin. His blood pressure has been elevated. Review of Systems Constitutional: Positive for malaise/fatigue. All other systems reviewed and are negative. Objective Visit Vitals BP (!) 147/91 (BP Location: Right arm, Patient Position: Sitting) Pulse 77 Ht 1.702 m (5' 7 ) Wt 92.5 kg (204 lb) SpO2 96% BMI 31.95 kg/m??? Smoking Status Former BSA 2.09 m??? Physical Exam Constitutional: Appearance: He is [...] No swelling. Cervical back: Neck supple. Skin: G (more content not included)... [facility] 03-21-2025 History of Present illness Narrative George Styles is a 55 y.o. male No ref. provider found presents with chief complaint of Follow-up and Osteoporosis (LAB) HPI: IM : 02/2025 Follow-up visit for 24 hour urine calcium 340 ( 100-300), 24 hour urine creatinine 1600 ( 1078-3126), 24 hour urine sodium 200 ( 40-220) calcium within normal limits 9.1, PTH mildly high 91 ( 15-61, vitamin-D pending. HPI 02/2025 New patient sent for osteoporosis [...] SUBJECTIVE: MEDICATIONS: Current Outpatient Medications Medication Instructions alendronate (FOSAMAX) 70 mg, Oral, Every 7 days, 1 tablet weekly on an empty stomach, remain upright for at least 30 minutes allopurinol (ZYLOPRIM) 200 mg, Oral, Daily, Take 2 tablets by mouth in the morning. amLODIPine (NORVASC) 5 mg, Oral, Daily aspirin 81 MG chewable tablet 1 tablet, Daily ergocalciferol (VITAMIN D-2) 1.25 mg, Oral, Weekly famotidine (PEPCID) 20 mg, Oral, 2 times [...] SYSTEM REVIEWED AND NEGATIVE OBJECTIVE: Visit Vitals Pulse 80 Resp 18 Ht 5' 7 Wt 210 lb SpO2 95% BMI 32.89 kg/m Smoking Status Former BSA 2.12 m Physical Exam Constitutional: Appearance: Normal appearance. [...] Other osteoporosis without current pathological fracture - alendronate (Fosamax) 70 MG tablet; Take 1 tablet (70 mg) by mouth every 7 (seven) days 1 tablet weekly on an empty stomach, remain upright for at least 30 minutes - Magnesium; Future - Renal function panel; Future - PTH, intact; Future I gave him options for Fosamax versus Prolia versus Reclast, he is okay with Fosamax, we will start 70 mg once weekly, we will check lab in 6 months Organ transplant 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) PTH high but calcium normal more and most likely due to vitamin-D deficiency and he has GFR 58, we will start him 50,000 once a week Vitamin D deficiency - ergocalciferol (Vitamin D-2) 1.25 MG (56299 UT) capsule; Take 1 capsule (1.25 mg) by mouth 1 (one) time per week - Vitamin D 25 hydroxy Total; Future We will check lab before next visit and adjust. Liver transplant status He is on Prograf and Myfortic Follow up in about 6 months (around 09/20/2025). documented in this encounter [facility] 02-28-2025 History of Present illness Narrative George [...] (around 03/21/2025). documented in this encounter [facility] 01-03-2025 Hospital Discharge instructions Patient Education [...] urethra. Follow these instructions at home: Take krpc-nmi-umezmou and prescription medicines only as told by [...] provider. Document Revised: 06/04/2022 Document Reviewed: 06/04/2022 [employer] Patient Education 2023 [employer]. Follow Up Care 12/27/2024 09:54:21 With:JONATHAN Almodovar APRN, RUMA [place], URL Address: When: Unknown [facility]re 01-03-2025 Note Patient Education Urology [...] Follow these instructions at home: ??? Take afzl-knq-lccokfu and prescription medicines only as told by [...] do not get (more content not included)... [facility] 12-26-2024 Procedure note [facility] 12-15-2024 Evaluation note Authored December 15, [...] twice or three times daily if needed. [facility] Work Phone: [phone] 614-563812-24-2024 Hospital Discharge instructions Patient Education 11/22/2024 09:57:55 [...] if anything looks unusual. Males with a zcmipc-imlt-qfjpqs risk for skin cancer may want to see a process laboratory specialist (simulation specialist) for an annual body check. Where to find more information [employer] [employer]: cancer.org Centers for Disease Control and Prevention: cdc.gov National Cancer Colora: cancer.gov Contact a health care provider if: [...] provider. Document Revised: 11/24/2023 Document Reviewed: 06/08/2023 [employer] Patient Education 2023 [employer] 11/22/2024 09:57:51 Erectile Dysfunction Erectile Dysfunction Erectile [...] Follow these instructions at home: Medicines Take oeir-qkx-mmjhxgr and prescription medicines only as told by [...] provider. Document Revised: 02/12/2022 Document Reviewed: 02/12/2022 [employer] Patient Education 2023 [employer]. 11/22/2024 09:57:50 Benign Prostatic Hyperplasia Benign Prostatic [...] urethra. Follow these instructions at home: Take iazm-qmt-mfwzdxd and prescription medicines only as told by [...] provider. Document Revised: 06/04/2022 Document Reviewed: 06/04/2022 [employer] Patient Education 2023 [employer]. Follow Up Care 09/08/2024 14:18:18 With:Jaguar CASTILLO, Clementina Mejias, URL Address: When: Unknown Comments:4 mos [facility] 12-24-2024 NotePatient Education Oncology Cancer Screening for [...] if anything looks unusual. Males with a zqzyif-nmxg-yloigr risk for skin cancer may want to see a process laboratory specialist (dermatologi (more content not included)...[facility]12-09-2024 History of Present illness Narrative* Zuly Bruno [...] Acute kidney failure (CMS/HCC) Acute kidney failure ([facility]/HCC) 11/03/2023 Alcoholic cirrhosis of liver with ascites ([facility]/HCC) 02/11/2024 Cirrhosis of liver (CMS/HCC) 02/11/2024 Complication of AV dialysis fistula 02/11/2024 Diastolic dysfunction 02/11/2024 GI bleeding 02/11/2024 Histoplasmosis without sepsis Hyperlipidemia ([facility]/HCC) 02/11/2024 Hypertension ([facility]/HCC) 01/06/2024 Incisional hernia of anterior abdominal wall [...] Ginette, continues w hepatology documented in this [facility]12-09-2024 Instructions* Patient Instructions* Zuly Bruno NP - 11/07/2024 2:20 PM EST No medication dose changes Recommend cutting back on snacking, goal for 10 pounds weight loss by next visit Exercise as tolerated, most days of the week for approx 30 minutes, treadmill is great option Will reach out again to transplant team about options for osteoporosis documented in this [facility]12-02-2024 History of Present illness Narrative* Gopi Noyola - 10/31/2024 12:18 PM EST [facility] OP RX OUTREACH ADVANCED: Shipping/Pickup: Patient has affirmed needing a refill of the following medications for Shipment (11/01) : Med Name: Mycophenolate 360mg Med Name: Tacrolimus 0.5mg Contact Info: Specialty ([place]) [phone] Jakob [phone] [facility] [phone] David [phone] Bedside Delivery ([facility]) [phone] [facility] Discharge instructions Patient Education 09/08/2024 14:31:14 [...] urethra. Follow these instructions at home: Take myjf-poz-dzcokpj and prescription medicines only as told by [...] provider. Document Revised: 06/04/2022 Document Reviewed: 06/04/2022 [employer] Patient Education 2023 Eduora. Follow Up Care 08/25/2024 09:38:26 With:Clementina James, URL Address: When:3 months Comments:med increase [facility] 10-10-2024 NoteUrology Office/Clinic Note Chief Complaint referral- [...] Skin: No rashes or suspicious lesions Assessment/Plan TURNER OFF referred by Zuly Bruno NP for weak [...] E&M of New Patient Moderate 45-59 Min 52998 2. Screening PSA (prostate specific antigen) (Z12.5: Encounter for screening for malignant neoplasmof prostate) No PSA records on file -Will discuss with patient at his follow up Ordered: E&M of New Patient Moderate 45-59 Min 62281 3. History of kidney transplant (Z94.0: Kidney transplant status) 08/29/24 - BUN 18, Cre 1.3, GFR 58 Pt had liver and kidney transplant in 2019 and follows yearly with [facility]. Ordered: E&M of New Patient Moderate 45-59 Min 28592 Orders: tamsulosin, 0.4 mg = 1 cap(s), Oral, BID, X 30 day(s), # 60 cap(s), Refills(s) 11, Pharmacy: [facility], 170, cm, 09/08/24 14:00:00 EDT, Height/Length Dosing, 90, kg, 09/08/24 14:00:00 EDT, Weight Dosing 00565 Measure Post Void residual urine and/or bladder capacity by US- non-imaging Urnls Dip Stick Auto w/o Microscopy POC [id number] Follow-up With When Contact Information Jaguar CASTILLO, Clementina Mejias, URL Within 3 months Additional Instructions: med [...] Glucose Urine Dipstick: Negative (more content not included)...[facility] IncComment on above:Result Comment: Electronically Signed By: Clementina James.shantanu\Date and Time Signed: 09/08/24 14:33 [id number] Note Patient Education Urology Benign Prostatic Hyperplasia [...] Follow these instructions at home: ? Take oaqc-kon-xwauwbq and prescription medicines only as told by [...] You develop side effec (more content not included)...[facility]10-07-20[facility] History of Present illness Narrative* Starla Edwards - 09/05/2024 3:24 PM EDT [facility] OUTREACH ADVANCED: Call Information: Date and Time of Contact: 09/05/2024 3:24 PM Method of Contact: By Phone Contact Type: Prescriptions Contactor: Patient Contactee: [facility] OP Shipping/Pickup: Medicare B Refill?: No Medication Name: Mycophenolate, prograf Delivery Method: Ship Delivery Location: Home Signature Required: No Receive/Pickup Date: 09/06/2024 Shipping Address: [address] [place] [address] Contact Info: Specialty ([place]) [phone] [facility] [phone] [facility] [phone] [facility] [phone] Bedside Delivery ([facility]) [phone] documented in this encounterKettering Health09-24-2024 History of Present illness Narrative* Zuly Bruno [...] 8:56 AM EDTAssociated Problem(s): Portal hypertension (CMS/HCC) Ginette, continues w hepatology * Zuly Bruno NP [...] Follows yearly with Hepatology documented in this [facility]09-24-2024 Instructions* Patient Instructions* Zuly Bruno NP - 08/23/2024 8:40 AM EDT Labs, referrals to : GI, Urology Tests: bone density test documented in this [facility]07-25-2024 History of Present illness Narrative* Starla [...] Required: No Receive/Pickup Date: 06/29/2024 Shipping Address: [address] [place] [address] [address] Contact Info: Specialty ([place]) [phone] Jakob [phone] [facility] [phone] David [phone] Bedside Delivery ([facility]) [phone] documented in this encounterKettering Health07-19-2024 History of Present illness Narrative* Daisha Max, [...] DAY SURGERY MAIN OR KIDNEY TRANSPLANT W/O KASIGLUK NEPHRECTOMY N/A 04/12/2020 Laterality: N/A; Surgeon: LU [...] 0.2 06/13/2024 Explant Pathology Pathologic Diagnosis A. [place] liver, orthotopic liver transplant resection (1458 gram): [...] up in 1 year. Daisha Max DO Internal Wholesaler Gastroenterology, Hepatology and Nutrition [facility] Pager: [phone] * José Miguel Garnica RN - 06/17/2024 10:00 AM EDT Images from the original note were not included. 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: Anayeli Burt Date of Liver Transplant: 04/13/2020 (Kidney), 04/13/2020 (Liver) 4 years, 2 months post Liver/KidneyTransplant Primary Disease: Hypertensive Nephrosclerosis Transplant Mime Artist: Erma Roe/ Daisha Max Primary Care physician: [...] no Is patient employed: no (Needed for [employer] forms) VITALS BP Readings from Last 3 [...] LAB AND PHARMACY: None Specified [id number] [place] [address] - [address] [facility] [address] [facility] [address] [facility] [place] [facility] [address] [facility] [place] [address] [facility]/pharm[facility][id number] [place] [address] [address] [facility] [address] [facility] [address] [facility] Jakob [address], Jorge [address] [facility] [address] ROS and SCREEN: Chest Pain: negative Cough: [...] year: no Do you follow with a Woods Rider? yes Do you have a Primary Care [...] TO ADDRESS WITH PHYSICIAN: documented in this [facility]07-19-2024 Instructions* Patient Instructions* Ashlee Fair RN - 06/17/2024 10:00 AM EDT - No medication changes from a liver standpoint - A MRI Abdomen has been ordered today. Please call central scheduling at [phone] to schedule or take paper copy to your local hospital - Return to clinic 06/16/2025 TRANSPLANT HEPATOLOGY 3, [facility] as scheduled documented in this [facility]07-19-2024 History of Present illness Narrative* Rebeca Gutierrez APRN-ROB - 06/17/2024 9:30 AM EDT Images from the original note were not included. George Styles is a 54 y.o. 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 The HLA mismatch was 1A,2B, 1DR. No longer follows with a local front office administrator. History of Present Illness: Since George was [...] records and lab results. Rebeca MITCHELL, RN, ADDICTION SOCIAL WORKER-BC, CCTN Certified Nurse Practitioner [facility] [address] [facility] [address] documented in this encounterOSU [facility]07-[facility] Instructions* Patient Instructions* JEANNA Hess - 06/17/2024 9:30 AM EDT Tacrolimus - increase to 0.2 mg packet three time per day; goal 3 to 5 ng/dL ; when the itraconazole stops 09/03/2024, reduce to 0.5 mg twice daily. Once your tacrolimus level is 3-5 ng/dL, you may reduce labs to every other week. documented in this encounterOSProm[facility]06-27-2024 History of Present illness Narrative* Destiny Jensen - 05/26/2024 4:33 PM EDT [facility] OUTREACH ADVANCED: Call Information: Date and Time of Contact: 05/26/2024 4:35 PM Method of Contact: By Phone Contact Type: Prescriptions Contactor: [facility] OP Contactee: Patient Contact Outcome: Left message and Follow-up Contact Info: Specialty ([place]) [phone] Jakob [phone] [facility] [phone] David [phone] Bedside Delivery ([facility]) [phone] * Melody Reyez - 05/26/2024 4:33 PM EDT [facility] RX OUTREACH ADVANCED: Call Information: Date and Time of Contact: 05/30/2024 4:52 PM Method of Contact: By Phone Contact Type: Prescriptions Contactor: Patient Contactee: [facility] Shipping/Pickup: Medicare B Refill?: No Medication Name: Myco sod 360mg, Prograf 0.2mg Delivery Method: Ship Delivery Location: Home Signature Required: No Receive/Pickup Date: 06/06/2024 Shipping Address: [address] [place] [address] Contact Info: Specialty ([place]) [phone] Jakob [phone] [facility] [phone] David [phone] Bedside Delivery ([facility]) [phone] documented in this encounterOSU [facility]06-14-2024 NoteUT Cardiology - [facility] Subjective George Styles is a 54 [...] Disp: , Rfl: t (more content not included)...[facility]04-25-2024 History of Present illness Narrative* Melody Reyez - 03/24/2024 4:12 PM EDT [facility] OUTREACH ADVANCED: Call Information: Date and Time of Contact: 03/24/2024 4:14 PM Method of Contact: By Phone Contact Type: Prescriptions Contactor: [facility] OP Contactee: Patient Contact Outcome: Left message Shipping/Pickup: Medication Name: Prograf 0.2mg pack Contact Info: Specialty ([place]) [phone] [facility] [phone] [facility] [phone] David [phone] Bedside Delivery ([facility]) [phone] * Starla Edwards - 03/24/2024 4:12 PM EDT [facility] RX OUTREACH ADVANCED: Call Information: Date and Time of Contact: 03/28/2024 3:58 PM Method of Contact: By Phone Contact Type: Prescriptions Contactor: [facility] Contactee: Patient Contact Outcome: Left message and Call back later Shipping/Pickup: Medication Name: Mycophenolate, prograf Contact Info: Specialty ([place]) [phone] [facility] [phone] [facility] [phone] David [phone] Bedside Delivery ([facility]) [phone] * Gabbi Rajput - 03/24/2024 4:12 PM EDT [facility] OUTREACH ADVANCED: Call Information: Method of Contact: By Phone Contact Type: Prescriptions Contactor: Patient Contactee: [facility] Shipping/Pickup: Medicare B Refill?: No Medication Name: Mycopheolate 360mg and Prograf Delivery Method: Ship Delivery Location: Home Signature Required: No Receive/Pickup Date: 04/04/2024 Shipping Address: [address] [place] [address] [address] Contact Info: Specialty ([place]) [phone] Jakob [phone] [facility] [phone] David [phone] Bedside Delivery ([facility]) [phone] documented in this encounterKettering Health04-25-2024 History of Present illness Narrative* Melody Reyez - 03/24/2024 4:12 PM EDT [facility] RX OUTREACH ADVANCED: Call Information: Date and Time of Contact: 03/24/2024 4:14 PM Method of Contact: By Phone Contact Type: Prescriptions Contactor: [facility] OP Contactee: Patient Contact Outcome: Left message Shipping/Pickup: Medication Name: Prograf 0.2mg pack Contact Info: Specialty ([place]) [phone] Jakob [phone] [facility] [phone] David [phone] Bedside Delivery ([facility]) [phone] * Starla Edwards - 03/24/2024 4:12 PM EDT [facility] RX OUTREACH ADVANCED: Call Information: Date and Time of Contact: 03/28/2024 3:58 PM Method of Contact: By Phone Contact Type: Prescriptions Contactor: [facility] OP Contactee: Patient Contact Outcome: Left message and Call back later Shipping/Pickup: Medication Name: Mycophenolate, prograf Contact Info: Specialty ([place]) [phone] Jakob [phone] [facility] [phone] David [phone] Bedside Delivery ([facility]) [phone] * Gabbi Rajput - 03/24/2024 4:12 PM EDT [facility] RX OUTREACH ADVANCED: Call Information: Method of Contact: By Phone Contact Type: Prescriptions Contactor: Patient Contactee: [facility] Shipping/Pickup: Medicare B Refill?: No Medication Name: Mycopheolate 360mg and Prograf Delivery Method: Ship Delivery Location: Home Signature Required: No Receive/Pickup Date: 04/04/2024 Shipping Address: [address] [place] [address] [address] Contact Info: Specialty ([place]) [phone] [facility] [phone] [facility] [phone] David [phone] Bedside Delivery ([facility]) [phone] * Meka Munoz, [facility] - 03/24/2024 4:12 PM EDT [facility] [...] Within normal limits Contact Info: Specialty ([place]) [phone] Jakob [phone] [facility] [phone] David [phone] Bedside Delivery ([facility]) [phone] documented in this encounterKettering Health04-03-2024 History of Present illness Narrative* Mckenna Stuart [...] del of broth Contact Info: Specialty ([place]) [phone] Jakob [phone] [facility] [phone] David [phone] Bedside Delivery ([facility]) [phone] * Andressa Gutiérrez - 03/02/2024 8:14 AM EDT [facility] OUTREACH ADVANCED: Call Information: Date and Time of Contact: 03/02/2024 3:49 PM Method of Contact: By Phone Contact Type: Prescriptions Contactor: [facility] OP Contactee: Patient Contact Outcome: Left message and Follow-up Shipping/Pickup: Medication Name: Myco 360mg and Prograf 0.2mg Contact Info: Specialty ([place]) [phone] Jakob [phone] [facility] [phone] David [phone] Bedside Delivery ([facility]) [phone] * Mckenna Stuart - 03/02/2024 8:14 AM EDT [facility] RX OUTREACH ADVANCED: Call Information: Date and Time of Contact: 03/02/2024 4:08 PM Method of Contact: By Phone Contact Type: Prescriptions Contactor: [facility] OP Contactee: Patient Shipping/Pickup: Medicare B Refill?: No Medication Name: Myco 360 / prograf 0.2 Delivery Method: Ship Delivery Location: Home Signature Required: No Receive/Pickup Date: 03/03/2024 Shipping Address: [address] [place] [address] [address] Contact Info: Specialty ([place]) [phone] Jakob [phone] [facility] [phone] David [phone] Bedside Delivery ([facility]) [phone] documented in this encounterKettering Health03-29-2024 History of Present illness Narrative* Marsha Mckeon [...] to the HF Clinic at the [facility] at [facility] on 02/26/2024 for initial evaluation of heart [...] DAY SURGERY MAIN OR KIDNEY TRANSPLANT W/O KASIGLUK NEPHRECTOMY N/A 04/12/2020 Laterality: N/A; Surgeon: LU [...] qd Antithrombotic: no Statin: no ICD: NA PARIMUTUEL TICKET SELLER: NA CV Test results: ECHOCARDIOGRAM 01/18/2024 (Final) Interpretation Summary Left Ventricle: Chamber size is normal. Increased wall thickness. Concentric hypertrophy. Normal global systolic function. Regional wall motion is normal. Ejection fraction is normal (55 - 60%). Right Ventricle: Chamber size is normal. Systolic function is low normal. No hemodynamically significnat valve disease. Moderate pericardial effusion. There is no evidence of tamponade. [facility] (01/20/24) Hemodynamic Summary: Baseline Hemodynamics Systemic BP [...] will be BP control. Candie Almaguer M.D. accounting technician Advanced Heart Failure Program Division of Cardiovascular Medicine [facility] [email or web address] ph [phone] fax [phone] documented in this encounterOSU [facility]lap [facility]03-29-2024 Instructions* Patient Instructions* Marsha Mckeon RN - 02/26/2024 9:30 AM EDT The following instructions were given today: Labs today Follow up with Dr. Almaguer as needed. Your after visit summary (AVS) is viewable in [facility]. Call RN if you have cardiac questions/concerns M-F 8 to 4:30 ; office # [phone], option 6, then option 2. Guidelines for home management: 1. Continue to monitor weight first thing each morning. 2. Report to the CHF CLINIC ([phone]) any significant weight change. Remember that weight [...] to have labs/tests run outside of the [facility] and you do not hear from us1-2 days after they are performed, you must call us to ensure we received the results. Office fax #[phone]. No news does not necessarily mean that your tests are normal, it could mean we did not get the results. For questions/updates: please provide your name with spelling, date of and question or update All calls are prioritized and responses researched, if possible, prior to calls being returned. Call Scheduling for any appointment/procedure verification or changes [phone], option 7 or [facility] at [phone], option 1. documented in this encounterKettering Health02-24-2024 Nurse Note* Nursing Notes - Terra Heart [...] up needed prescriptions at [facility] pharmacy as listed on discharge summary. Patient denies any unanswered questions at this time. Patient has been discharged with all of their belongings, transported via wheelchair on oxygen to front entrance for brother to transport home on home oxygen supply. [facility]02-24-[facility]24 Miscellaneous Notes* Nursing Notes - Terra Heart [...] understanding on picking up needed prescriptions at [facility] pharmacy as listed on discharge summary. Patient [...] Guideline (CPG) Outcome: Progressing Flowsheets (Taken 01/23/2024 3534) Related Risk Factors (Acute Pain): surgery Signs and Symptoms (Acute Pain): verbalization of pain descriptors * Brief Op Note - Jyoti Bryant MD, PhD - 01/22/2024 1:34 PM EST George Styles ([id number]) PRE OPERATIVE DIAGNOSIS High output congestive heart failure [I50.83] POST OPERATIVE DIAGNOSIS Post-Op Diagnosis Codes: * High output congestive heart failure [I50.83] PROCEDURE PERFORMED Procedure(s) (LRB): LIGATION ANGIOACCESS AVF (Left) Resection of large aneurysmic vein PRIMARY CLOSURE Yes INTRAOPERATIVE FINDINGS No significant abnormalities SURGEON Surgeons and Role: * Jyoti Bryant MD, PhD - Primary ANESTHESIOLOGIST Anesthesiologist: Celena Tiwari MD; Kehinde Gutierrez MD CHAIN MAKER LOOM CONTROL: David Jasso APRN-CHAIN MAKER LOOM CONTROL Jig Grinder Set Up Operator Assisting: Mini Khan MD SURGICAL STAFF Arbitrator: Zoila Lawrence RN Relief Arbitrator: Marimar Saravia RN Relief Scrub: Briseyda Self [...] patent, patient breathing easily. Report received from business services vice president and report received from anesthesiology. [...] Axillary block. SURGEON(S): Jyoti Bryant MD, PHD LINE DECORATOR: Mynor Fall MD ESTIMATED BLOOD LOSS: Minimal. [...] Jyoti Bryant MD, PHD ATTENDING SHANNON/Constanza JOB: [id number] DOC: [id number] * Plan of Care - Tati Ahmadi [...] overnight coverage, Jasper Gastelum MD, via pager #[phone] Pt- Mark. Sarah Styles 1082. TM1. Was wondering if he can have his Melatonin order increased to 6mg. Per pt, he usually takes 8mg at home. -SAMI Duffy #[phone] Tati Charles RN * Plan of Care - Arelis Mera MD - 01/16/2024 7:27 AM EST Internal Medicine Daily Progress Note Patient: George Styles, 1970, [id number] Physician: Arelis Mera MD, PGY3, Pager #[phone], TM1 service Assessment/Plan: George Styles is a [...] home amlodipine 5mg CAD: non-obstructive CAD on [facility] 2018. - continue home aspirin 81mg [...] AM EST Mr. Styles was admitted to [address] [place] [address]. On admission to [facility], from outside facility a dual RN initial assessment of skin condition was performed by Izzy Gutierrez RN and Leroy Singleton RN. Skin Assessment: Skin within defined limits:Yes Jose Score: 20 Wound Vision Line Mechanic images obtained: No LDA Added: No Based [...] 4L of oxygen is also required.) [facility]02-24-[facility] History of Present illness Narrative* Leonel Harris [...] PGY-3 Surgery Resident * Kelvin Smith MD, MBAPOORVA - 01/22/2024 3:51 PM EST Patient seen [...] mg Oral Daily Kelvin Smith MD, MBBS penology professor Transplant nephrology * Leonel Harris DO [...] monitor Leonel Harris DO General Surgery Pager [phone] * Girish Salvador RN - 01/22/2024 3:14 PM EST CM went to bedside to talk with patient. Patient states he has home oxygen through [employer]. He uses 2.5 LNC around the clock. Patient states his brother will bring a tank for discharge. Anticipate patient will discharge tomorrow AM. Brother updated. Girish Oro RN, BSN Clinical Cane Flume Chute Operator Please note that I am a float case therapist and may not cover the same service every day. Please call the main Case Management office at [phone] for up-to-date coverage. Verified patients identity using [...] MD, PhD - 01/22/2024 10:54 AM EST Violeta. Jyoti Bryant MD, PhD, have independently seen and examined the patient, reviewed the labs, discussed the patient with the fellow/resident and agree with the note. * Yury Ozuna MD - 01/21/2024 2:24 PM EST Images from the original note were not included. Internal Medicine Daily Progress Note Patient: George Styles, 1970, [id number] Physician: Yury Ozuna MD, PGY1, Pager #[phone], TM1 service Assessment/Plan: George Styles is a [...] by transplant surgery on 01/22 (NPO at nm, updated type & screen) S/p Liver-Kidney Transplant [...] home amlodipine 5mg CAD: non-obstructive CAD on [facility] 2018. - continue home aspirin 81mg [...] agreed with the Nutrition plan outlinedin the Harnessmaker Apprentice s note. DVT prophylaxis with lovenox Diet [...] in resident note. Kelvin Smith MD, MBBS penology professor Transplant nephrology * Kelvin Smith MD, [...] mg Oral BID AC Kelvin Smith MD, LU penology professor Transplant nephrology * Yury Ozuna MD - 01/20/2024 9:31 AM EST Images from the original note were not included. Internal Medicine Daily Progress Note Patient: George Styles, 1970, [id number] Physician: Yury Ozuna MD, PGY1, Pager #[phone], KV8 service Assessment/Plan: George Styles is a 53 [...] home amlodipine 5mg CAD: non-obstructive CAD on [facility] 2018. - continue home aspirin 81mg [...] agreed with the Nutrition plan outlinedin the Harnessmaker Apprentice s note. DVT prophylaxis with lovenox Diet [...] 611) Ptt/Pt/Inr: 30.6/15.5/1.2 (01/20 611) Doppler AMIE AVF: Associated attestation - Kelvin Smith MD, MBBS - 01/21/2024 1:50 PM EST Please see my note from today for additional detail * Heidy Molinahector - 01/19/2024 12:07 PM ESTSummary: Pharmacy Med Rec Department of Pharmacy Admission Medication Reconciliation Note Patient: George Styles Room[facility]Bed: [facility]2/A The patient's allergies have been [...] 0 Provider: Zuly Bruno NP [facility] [place] [place] Other Comments: Patient reported his Last Home Dose of mycophenolate and tacrolimus was on 01/15/24 at 0700. Medications that need removed from Outside Medication Reconciliation list: Please remove all medications. Please feel free to contact me with any further questions. Name: Heidy Chatman Phone #: [phone] Date/Time: 01/19/2024 12:08 PM Time Spent: 15 minutes Associated attestation - Melania Alarcon RPH - 01/19/2024 12:41 PM EST Department of Pharmacy Admission Medication Reconciliation Note Patient: George Styles Room/Bed: 1082/A I have reviewed the home medication list with the Iron Worker Apprentice. The home medication list status is: complete. All changes to the home medication list have been updated in [facility]. Updated BRICK POINTER Med List: Prior to Admission Medications Prescriptions [...] with any further questions. Name: Melania Alarcon [facility] Phone #: [phone] Date/Time: 01/19/2024 12:41 PM * Yury Ozuna MD - 01/19/2024 11:10 AM EST Internal Medicine Daily Progress Note Patient: George Styles, 1970, [id number] Physician: Yury Ozuna MD, PGY1, Pager #[phone], RE5 service Assessment/Plan: Acute Hypoxic Respiratory Insufficiency GARCIA, [...] home amlodipine 5mg CAD: non-obstructive CAD on [facility] 2018. - continue home aspirin 81mg [...] agreed with the Nutrition plan outlinedin the Harnessmaker Apprentice s note. DVT prophylaxis with lovenox Diet [...] 616) Associated attestation - Kelvin Smith MD, LU - 01/19/2024 12:31 PM EST [...] 0.4 mg Oral Daily Kelvin Smith MD, LU penology professor Transplant nephrology * Yury Ozuna MD - 01/18/2024 2:53 PM EST Internal Medicine Daily Progress Note Patient: George Styles, 1970, [id number] Physician: Yury Ozuna MD, PGY1, Pager #[phone], TZ2 service Assessment/Plan: Updates: - continued diuresis with [...] home amlodipine 5mg CAD: non-obstructive CAD on [facility] 2018. - continue home aspirin 81mg [...] agreed with the Nutrition plan outlinedin the Harnessmaker Apprentice s note. DVT prophylaxis with lovenox Diet [...] 315) Associated attestation - Kelvin Smith MD, MBBS - 01/18/2024 4:20 PM EST Patient seen and examined at bedside today during multidisciplinary rounds with medicine residents and pharmacy, charts reviewed, laboratory parameters reviewed. Agree with plan of care as mentioned in resident note. Kelvin Smith MD, LU penology professor Transplant nephrology * BENJY Syed - 01/18/2024 1:42 PM EST Pt known to gun mechanic from previous admissions. Provided emotional and spiritual support. Patient shared about: family support, medical course Solvent Recoverer provided: - Supportive presence - Active listening - Validation of feelings/emotions Patient encouraged to request a gun mechanic as needed. Chaplains are available in-house 24 hours a day and 7 days a week. For urgent matters in [facility], please page [phone]. If the request is not urgent, please enter a consult. Consults are responded to within 24 hours. Senior Staff Solvent Recoverer Angie Singh Mdiv, [facility] Davis [phone] [email or web address] On-call TYLOR: call center recruiter David: 22/06 Pager TYLOR,APOORVA, and Brock Maciel Pager [phone] 01/18/24 1342 Clinical Encounter Type Visited With Patient Visit Type Introduction Pastoral Time Spent 15 min Referral Other (See Comment) (rounding) Spiritual Assessment Emotional Observation Coping well;Anxiety Hope Observation Specific hope focus Support Observation By Family Interventions Provided Active listening;Supportive presence Facilitated Verbalization of feelings;Identifying support system;Identifying Sources of spiritual well-being Explored Expectations;Treatment decisions Walking Dragline Oiler Education Walking Dragline Oiler Service Available Yes Educated Patient Outcomes Patient Outcomes Articulated purpose/meaning Plan of Care Continue Visiting PRN * Melania Alarcon RP - 01/18/2024 9:56 AM EST Department of [...] interaction. Name: Melania Alarcon RPH Phone #: [phone] Date/Time: 01/18/2024 9:56 AM * Kasandra Hurt [...] Yes Name and Contact information: Gian Jensen ([phone]) Would you like to add additional adult [...] Disease (Infectious Disease) Dr Perrin transplant Dr Ko-Infectious disease Environment/Caregivers Is the patient from a [...] oxygen?: Yes Oxygen Provider and Contact : Platypi Liter-Flow?: Order for oxygen use?: unknown at [...] patient on Anticoagulation? : No [id number] [place] [address] - [address] [facility] [address] [facility] [address] Corrugated Box Machine Operator Does the patient or client support representative express financial concerns? : No [...] Plan 1. Identified self and role as Cane Flume Chute Operator. 2. Confirmed and updated demographics and treatment team. 3. Cane Flume Chute Operator will continue to follow with medical team for any other additional discharge needs. Kasandra DON RN [facility] [phone] *Please note I am float CM and work Thursday and Thursday every other week. Please call [phone] for assist in my absence. * Yury Ozuna MD - 01/17/2024 1:57 PM EST Internal Medicine Daily Progress Note Patient: George Styles, 1970, [id number] Physician: Yury Ozuna MD, PGY1, Pager #[phone], UG1 service Assessment/Plan: Updates: - continue diuresis with [...] home amlodipine 5mg CAD: non-obstructive CAD on [facility] 2018. - continue home aspirin 81mg [...] ordered 2D echo. Reese Sage MD, MADISONN Internal Wholesaler of Clinical Medicine [facility] documented in this [facility]02-24-[facility]24 Plan of care note* Plan of Care [...] (Acute Pain): verbalization of pain descriptors [facility]02-23-2024 Hospital Discharge instructions* Discharge Instructions* Arelis [...] your doctor for further instructions. Please call [phone], Option 1 or [phone] to schedule your appointment with the Heart Failure Clinic. * Discharge Instr - Wound Care* Arelis Mera MD - 01/22/2024 3:08 PM EST You can change your dressing 48 hours from the procedure * Attachments The following attachments cannot be sent through Care Everywhere. * Heart Failure: Avoiding Triggers (Grenadian) * Heart Failure: Limiting Sodium (Grenadian) * Pain and Pain Control ([facility]) (Grenadian) [facility] Postoperative evaluation and management note* Brief Op Note - Jyoti Bryant MD, PhD - 01/22/2024 1:34 PM EST George Styles ([id number]) PRE OPERATIVE DIAGNOSIS High output congestive heart failure [I50.83] POST OPERATIVE DIAGNOSIS Post-Op Diagnosis Codes: * High output congestive heart failure [I50.83] PROCEDURE PERFORMED Procedure(s) (LRB): LIGATION ANGIOACCESS AVF (Left) Resection of large aneurysmic vein PRIMARY CLOSURE Yes INTRAOPERATIVE FINDINGS No significant abnormalities SURGEON Surgeons and Role: * Jyoti Bryant MD, PhD - Primary ANESTHESIOLOGIST Anesthesiologist: Celena Tiwari MD; Kehinde Gutierrez MD CHAIN MAKER LOOM CONTROL: David Jasso APRN-CHAIN MAKER LOOM CONTROL Jig Grinder Set Up Operator Assisting: Mini Khan MD SURGICAL STAFF Arbitrator: Zoila Lawrence RN Relief Arbitrator: Marimar Saravia RN Relief Scrub: Briseyda Self Scrub Person: Cinda Mai RN Resident Assisting: Leonel Harris DO Fellow: Miki Mcgowan MD, MBBS COMPLICATIONS None ESTIMATED BLOOD LOSS Minimal SPECIMENS No specimen sent * No specimens in log * Jyoti Bryant MD, PhD January 22, 2024 1:34 PM [facility] Work Phone: [phone] Nurse Note* Nursing Notes - Justin Almendarez RN - 01/22/2024 1:24 PM EST Arrived to PACU assisted by anesthesiology. Connected to monitors. Turned side to side, OR linens removed, repositioned. Airway patent, patient breathing easily. Report received from business services vice president and report received from anesthesiology. Pt arrived awake. VSS. Sats slightly low. Pulm rehab used. Sats currently 3lpm @ 93%. Pt states he uses CPAP nocturnally. A&Ox4. Nerve block left arm, elevated. [facility]02-23-2024 Surgery Postoperative evaluation and management note* Op [...] Axillary block. SURGEON(S): Jyoti Bryant MD, PHD LINE DECORATOR: Mynor Fall MD ESTIMATED BLOOD LOSS: Minimal. [...] Jyoti Bryant MD, PHD ATTENDING SHANNON/Constanza JOB: [id number] DOC: [id number] [facility]02-23-2024 Plan of care note* Plan of [...] Plan Of Care Reviewed With: patient [facility]02-21-2024 Consult note* Starla Morris MD - 01/20/2024 2:15 PM ESTAssociated Order(s): IP CONSULT TO SURGERY - TRANSPLANT (RENAL) Images from the original note were not included. TRANSPLANT SURGERY CONSULT NOTE: Consult: 01/20/2024, 4:03 PM Human Resources Clerk: Starla Morris MD Reason for Consult: Requesting Dr Carson Bryant for AVF revision/closure given new onset high output heart failure George Styles is a 53 y.o. male CURRENT HOSPITALIZATION LOS: Admit Date: 01/16/2024 [facility] Hospital LOS: 4 days [...] DAY SURGERY MAIN OR KIDNEY TRANSPLANT W/O KASIGLUK NEPHRECTOMY N/A 04/12/2020 Laterality: N/A; Surgeon: LU [...] 6 mg 6 mg Oral QHS PRN Jaspre Groves MD 6 mg at 01/19/242043 Mycophenolate [...] and staffed with Dr. Mcgowan fellow information assurance officer Thank you, Starla Morris MD Associated attestation - Jyoti Bryant MD, PhD - 01/22/2024 10:54 AM EST I. Jyoti Bryant MD, PhD, have independently seen and examined the patient, reviewed the labs, discussed the patient with the fellow/resident and agree with the note. [facility] Work Phone: 1(953) 995-819902-21-2024 Consult note* Starla Morris MD - 01/20/2024 2:15 PM ESTAssociated Order(s): IP CONSULT TO SURGERY - TRANSPLANT (RENAL) Images from the original note were not included. TRANSPLANT SURGERY CONSULT NOTE: Consult: 01/20/2024, 4:03 PM Human Resources Clerk: Starla Morris MD Reason for Consult: Requesting Dr Carson Bryant for AVF revision/closure given new onset high output heart failure George Styles is a 53 y.o. male CURRENT HOSPITALIZATION LOS: Admit Date: 01/16/2024 [facility] Hospital LOS: 4 days [...] DAY SURGERY MAIN OR KIDNEY TRANSPLANT W/O KASIGLUK NEPHRECTOMY N/A 04/12/2020 Laterality: N/A; Surgeon: LU [...] and staffed with Dr. Mcgowan fellow information assurance officer Thank you, Starla Morris MD Associated attestation [...] DAY SURGERY MAIN OR KIDNEY TRANSPLANT W/O KASIGLUK NEPHRECTOMY N/A 04/12/2020 Laterality: N/A; Surgeon: LU [...] and procedures were reviewed. ASSESSMENT AND PLAN: Geogre Styles is a 53 y.o. male, PMH [...] (order for outpatient) Please SecureChat or Call ([phone]) for any questions. Await attending attestation for final recommendations. Hank Noel MD Division of Gastroenterology, Hepatology, and Nutrition Clinical Fellow, PGY-5 Pager: [phone] For urgent/stat calls or consults 5pm to 7am, please page the on-call GI fellow on QGenda. [facility]--> Internal Medicine--> Gastroenterology, Hepatology, & [...] consults fellow or CARLOS A on QGenda. [facility]--> Internal Medicine--> Gastroenterology, Hepatology, & [...] Estrada MD, MSc documented in this encounter[facility] Nurse Note* Nursing Notes - Paulette [...] 95-96% when talking/moving. Paulette Cordon RN [facility]02-20-2024 Nurse Note* Nursing Notes - Tati Charles RN - 01/19/2024 12:10 AM EST Paged overnight coverage, Jasper Gastelum MD, via pager #[phone] Pt- Mark. Sarah Styles 1082. TM1. Was wondering if he can have his Melatonin order increased to 6mg. Per pt, he usually takes 8mg at home. -SAMI Duffy #[phone] Tati Charles RN [facility]02-19-2024 Consult note* Hank Noel MD - 01/18/2024 1:24 PM ESTAssociated Order(s): IP CONSULT TO HEPATOBILIARY [facility] OS Main Hepatology Consult WebExchange --> IM Consult Serv [facility] --> [facility] Main Hepatology consult service Fellow [...] DAY SURGERY MAIN OR KIDNEY TRANSPLANT W/O KASIGLUK NEPHRECTOMY N/A 04/12/2020 Laterality: N/A; Surgeon: LU [...] (order for outpatient) Please SecureChat or Call ([phone]) for any questions. Await attending attestation for final recommendations. Hank Noel MD Division of Gastroenterology, Hepatology, and Nutrition Clinical Fellow, PGY-5 Pager: [phone] For urgent/stat calls or consults 5pm to 7am, please page the on-call GI fellow on QGenda. [facility]--> Internal Medicine--> Gastroenterology, Hepatology, & [...] consults fellow or CARLOS A on QGenda. [facility]--> Internal Medicine--> Gastroenterology, Hepatology, & [...] outpatient) Michael Estrada MD, MSc [facility] Work Phone: 1(509) 493-626602-17-2024 Plan of care note* Plan of Care - Arelis Mera MD - 01/16/2024 7:27 AM EST Internal Medicine Daily Progress Note Patient: George Styles, 1970, [id number] Physician: Arelis Mera MD, PGY3, Pager #[phone], TM1 service Assessment/Plan: George Styles is a [...] home amlodipine 5mg CAD: non-obstructive CAD on [facility] 2018. - continue home aspirin 81mg [...] MD, on rounds. Signed, Arelis Mera MD [facility]02-17-2024 Nurse Note* Nursing Notes - Izzy Gutierrez RN - 01/16/2024 1:41 AM EST Mr. Styles was admitted to [address] [place] [address]. [facility], from outside facility a dual RN initial assessment of skin condition was performed by Izzy Gutierrez RN and Leroy Singleton RN. Skin Assessment: Skin within defined limits:Yes Jose Score: 20 Wound Vision Line Mechanic images obtained: No LDA Added: No Based [...] room closest to nurses station when available. [facility]02-17-2024 History and physical note* Timothy Joseph MD - 01/16/2024 1:13 AM EST Images from the original note were not included. Internal Medicine Admission History & Physical Patient: George Styles, 1970, [id number] Physician: Timothy Joseph MD, PGY1, Pager #[phone], TM 1 service Date of face to [...] DAY SURGERY MAIN OR KIDNEY TRANSPLANT W/O KASIGLUK NEPHRECTOMY N/A 04/12/2020 Laterality: N/A; Surgeon: LU [...] itraconazole Fax results to: Dr. White - [phone] Transplant Neph - [phone] Gabapentin 400 MG capsule Sig: Take 1 [...] erythema: Skin: No jaundice or rash Neuro: security project manager 3-7, 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 Strength [...] home amlodipine 5mg CAD: non-obstructive CAD on [facility] 2018. - continue home aspirin 81mg daily Gout: continue home allopurinol 200mg daily BPH: continue home flomax 0.4mg daily Complexity. Obesity Body mass index is 32.8 kg/m . - Follow with PCP for dietary and lifestyle modifications. Any conditions listed below are present on admission unless otherwise specified. . DVT prophylaxis with lovenox Disposition: admitted to [facility] Code status is Full Staffed with [...] Erma Roe, Melania Pierson, Luisa Steven, Renee Freed, Daisha Max Precast Concrete Products Installer: José Miguel Garnica All Txt: 04/13/2020 [...] results found for: CYCLOSPORIN , CYCLOSPORIN2 , [id number] , CYCLORAND No results found for: SIROLIMUS [...] request in chart. Reese Sage MD Pager [phone] [facility]02-17-2024 History and physical note* Timothy Joseph MD - 01/16/2024 1:13 AM EST Images from the original note were not included. Internal Medicine Admission History & Physical Patient: George Styles, 1970, [id number] Physician: Timothy Joseph MD, PGY1, Pager #[phone], TM 1 service Date of face to [...] DAY SURGERY MAIN OR KIDNEY TRANSPLANT W/O KASIGLUK NEPHRECTOMY N/A 04/12/2020 Laterality: N/A; Surgeon: LU [...] itraconazole Fax results to: Dr. White - [phone] Transplant Neph - [phone] Gabapentin 400 MG capsule Sig: Take 1 [...] Device: nasal cannula (01/16/2455) Flow (L/min): 4 (02/17/24 0056) Gen: Alert, Awake, NAD Eyes: PERRLA, EOMI, no icterus ENT: MMM, trachea midline Resp: + diminished lung sound on RLL, normal respiratory effort Cardio: RRR, normal S1, S2, no M/R/G. + 1 JENSEN through midcalf. GI: Mildly distended, + hepatomegaly, BS present MSK: No joint effusions or erythema: Skin: No jaundice or rash Neuro: security project manager 3-7, 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 Strength [...] home amlodipine 5mg CAD: non-obstructive CAD on [facility] 2018. - continue home aspirin 81mg daily Gout: continue home allopurinol 200mg daily BPH: continue home flomax 0.4mg daily Complexity. Obesity Body mass index is 32.8 kg/m . - Follow with PCP for dietary and lifestyle modifications. Any conditions listed below are present on admission unless otherwise specified. . DVT prophylaxis with lovenox Disposition: admitted to [facility] Code status is Full Staffed with [...] Erma Roe, Melania Pierson, Luisa Steven, Renee Freed, Daisha Max [employer]crete Products Installer: José Miguel Garnica All Txt: 04/13/2020 [...] results found for: CYCLOSPORIN , CYCLOSPORIN2 , [id number] , CYCLORAND No results found for: SIROLIMUS [...] request in chart. Reese Sage MD Pager [phone] documented in this encounter[facility] History of Present illness Narrative* Vladislav [...] Prograf 0.2 MG Contact Info: Specialty ([place]) [phone] [facility] [phone] [facility] [phone] [facility] [phone] Bedside Delivery ([facility]) [phone] * Anne Chuodhury - 01/12/2024 3:09 PM EST [facility] OP RX OUTREACH ADVANCED: Call Information: Date and Time of Contact: 01/25/2024 10:23 AM Method of Contact: By Phone Contact Type: Prescriptions Contactor: [facility] OP Contactee: Patient Contact Outcome: Left message (prograf myco) Contact Info: Specialty ([place]) [phone] [facility] [phone] [facility] [phone] [facility] [phone] Bedside Delivery ([facility]) [phone] documented in this encounterKettering Health02-13-2024 History of Present illness Narrative* Vladislav Mcnally [...] Prograf 0.2 MG Contact Info: Specialty ([place]) [phone] [facility] [phone] [facility] [phone] David [phone] Bedside Delivery ([facility]) [phone] * Anne Choudhury - 01/12/2024 3:09 PM EST [facility] OP RX OUTREACH ADVANCED: Call Information: Date and Time of Contact: 01/25/2024 10:23 AM Method of Contact: By Phone Contact Type: Prescriptions Contactor: [facility] OP Contactee: Patient Contact Outcome: Left message (prograf myco) Contact Info: Specialty ([place]) [phone] [facility] [phone] [facility] [phone] David [phone] Bedside Delivery ([facility]) [phone] * Anne Choudhury - 01/12/2024 3:09 PM EST [facility] OP RX OUTREACH ADVANCED: Call Information: Date and Time of Contact: 01/27/2024 10:19 AM Method of Contact: By Phone Contact Type: Prescriptions Contactor: [facility] OP Contactee: Patient Contact Outcome: Left message (myco prograf) Contact Info: Specialty ([place]) [phone] [facility] [phone] [facility] [phone] David [phone] Bedside Delivery ([facility]) [phone] documented in this encounterKettering Health02-13-2024 History of Present illness Narrative* Vladislav Mcnally [...] Name: Prograf 0.2 MG Contact Info: Specialty ([place]) [phone] [facility] [phone] [facility] [phone] David [phone] Bedside Delivery ([facility]) [phone] * Anne Choudhury - 01/12/2024 3:09 PM EST [facility] OP RX OUTREACH ADVANCED: Call Information: Date and Time of Contact: 01/25/2024 10:23 AM Method of Contact: By Phone Contact Type: Prescriptions Contactor: [facility] OP Contactee: Patient Contact Outcome: Left message (prograf myco) Contact Info: Specialty ([place]) [phone] [facility] [phone] [facility] [phone] David [phone] Bedside Delivery ([facility]) [phone] * Anne Choudhury - 01/12/2024 3:09 PM EST [facility] OP RX OUTREACH ADVANCED: Call Information: Date and Time of Contact: 01/27/2024 10:19 AM Method of Contact: By Phone Contact Type: Prescriptions Contactor: [facility] OP Contactee: Patient Contact Outcome: Left message (myco prograf) Contact Info: Specialty ([place]) [phone] [facility] [phone] [facility] [phone] David [phone] Bedside Delivery ([facility]) [phone] * Andressa Gutiérrez - 01/12/2024 3:09 PM EST [facility] OP RX OUTREACH ADVANCED: Call Information: Date and Time of Contact: 02/01/2024 3:22 PM Contact Type: Prescriptions Contactor: [facility] OP Contactee: Patient Contact Outcome: Left message Shipping/Pickup: Medication Name: Mycophenolate 360mg and Prograf 0.2mg Pack Contact Info: Specialty ([place]) [phone] [facility] [phone] [facility] [phone] [facility] [phone] Bedside Delivery ([facility]) [phone] documented in this encounterOS[facility] History of Present illness Narrative* Zuly [...] neurologist wanted to send him to [facility] neurology but it is out of [...] 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 [facility] Work Phone: [phone]) 113-250511-07-2023 History of Present illness Narrative* Vladislav Hed - 10/06/2023 9:30 AM EST [facility] OP [...] ; Prograf 0.2 MG Contact Info: Specialty ([place]) [phone] [facility] [phone] [facility] [phone] David [phone] Bedside Delivery ([facility]) [phone] * Gabbi Atiya - 10/06/2023 9:30 AM EST [facility] OP RX OUTREACH ADVANCED: Call Information: Date and Time of Contact: 10/23/2023 2:00 PM Method of Contact: By Phone Contact Type: Prescriptions Contactor: [facility] OP Contactee: Patient Contact Outcome: Left message and Call back later Shipping/Pickup: Medication Name: Mycophenolate 360mg and Prograf 0.2mg Contact Info: Specialty ([place]) [phone] [facility] [phone] [facility] [phone] David [phone] Bedside Delivery ([facility]) [phone] documented in this [facility]10-13-2023 Miscellaneous Notes* Nursing Notes - Cheyanne Mcdonough [...] the oxygen during the night. 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 This RN [...] 183) Infection Prevention/Resolution: making progress toward outcome * [...] Patient seen ambulating in the velazquez with HEALTH SERVICES DIRECTOR. Patient was mildly short of breath on [...] Dr. Diaz. Attending attestation to follow. Bony Watesr MS3 Interval History: George Styles is a [...] & HR 114. * Nursing Notes - aTti Charles RN - 09/04/2023 3:30 AM EDT Messaged Mainor Loomis, via [employer] secure chat, Temp 100.8. His tylenol order [...] short period of time. 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 Episode [...] 7:30 PM EDT Message Mainor Loomis, via [employer] secure chat, Good evening, just an FYI, [...] short period of time. 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 This [...] 8:[address] Loera here also (ton container shipper) * Nursing Notes - Mary Case RN [...] 08/29/2023 10:49 PM EDT Sent a secure IHIS chat to Rosi [...] PM EDT Mr. Styles was admitted to [address] [place] [address]. On admission to [facility], from home a [...] nurses station when available. documented in this encounterKettering Health10-13-2023 History of Present illness Narrative* BENJY Syed - 09/11/2023 2:30 PM EDT Provided follow-up emotional and spiritual support. Patient shared about rosemary of discharge and looking forward to seeing family Solvent Recoverer provided: - Supportive presence - Active listening - Validation of feelings/emotions Patient encouraged to request a gun mechanic as needed. Chaplains are available in-house 24 hours a day and 7 days a week. For urgent matters in [facility], please page [phone]. If the request is not urgent, please enter a consult. Consults are responded to within 24 hours. Senior Staff Solvent Recoverer Angie Singh Mdiv, [facility] Kirk [phone] [email or web address] 22/06 On-call Kirk: [phone] 22/06 Pager APOORVA, and Brock Maciel Pager [facility] 09/11/23 1430 Clinical Encounter Type Visited With Patient Visit Type Follow-up Pastoral Time Spent 15 min Referral Other (See Comment) (rounding) Spiritual Assessment Spiritual Observation Spirituality helpful Emotional Observation Coping well Hope Observation Specific hope focus Support Observation By Family Interventions Provided Active listening;Supportive presence Facilitated Verbalization of feelings Explored Expectations Walking Dragline Oiler Education Walking Dragline Oiler Service Available Yes Educated Patient Plan of [...] patient on 09/11/2023. Dimitrios Gurrola RPh,PharmD Specialty ([place]) [phone] Jakob [phone] Jakob Bedside Delivery [phone] [facility] [phone] [facility] Bedside Delivery [phone] David [phone] David Bedside Delivery [phone] [place] [phone] [place] [phone] * Evan Kelly MD - 09/10/2023 4:09 PM EDT Internal Medicine Daily Progress Note Patient: George Styles, 1970, [id number] Physician: Evan Kelly MD, PGY-1, TM1 service Subjective/Interval History: Patient continues to require oxygen overnight for desaturations. With insurance limitations, only accepting agency to provide home oxygen backed out. 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 - continue home aspirin 81mg [...] 5.05 (H) 11/19/2018 Reese Sage MD, SERA Internal Wholesaler of Clinical Medicine [facility] * Lora Lawrence RN - 09/10/2023 1:45 PM EDT Images from the original note were not included. Final Discharge Planning and Transportation Final Discharge Planning Discharge Disposition: Home Services at Discharge: Outpatient clinical services (ie: lab draws, transfusions, injectables) (Home Oxygen by [facility]) Selected Continued Care - Admitted Since 08/28/2023 Durable Medical Equipment Coordination complete. Service Provider Selected Services Address Phone Fax Patient Preferred [employer] Durable Medical Equipment [address] [phone] Internal Comment last updated by Lora Lawrence RN 09/10/2023 1334 Correct contact information: [employer] [address] [place] [address] catering attendant- you do not need to call at discharge, I already notified the company. Addendum 1524 [facility] notified this CM they are out of patient's insurance area and will not be able to service this patient at time of discharge. Provider notified. Addendum 2059 Dr Kelly called [facility] spoke to Lynn and she said they are willing to accept patient if the patient would drive to the [place] office and cherry picker operator the supplies. Patient is willing [...] Lora Colón RN, MSN, CCM, CMCN Clinical Cane Flume Chute Operator- R10 Transplant #[phone] * Matt Kramer RPh,PharmD - 09/10/2023 11:32 [...] dose adjustment Name: Matt Kramer RPh,PharmD Phone: [phone] Date/Time: 09/10/2023 11:33 AM * Lora Lawrence RN - 09/10/2023 11:08 AM EDT This CM sent referral via Aidin for O2 concentrator to 4 agencies Start date today Timer set for 1330 [facility] Addendum 1332 One accepting company reserved in [facility] [address] [place] [address] Lora Colón RN, MSN, CCM, CMCN Clinical Cane Flume Chute Operator- R10 Transplant #[phone] * RHIANNON Birmingham - 09/09/2023 3:18 PM EDT NUTRITION FOLLOW-UP Nutrition Plan of Care: 1. Continue current diet order. 2. No oral supplements warranted at this time. 3. Monitor for significant weight changes. Monitor GI, skin integrity. 4. Monitor and encourage po intakes with goal of average po being 75-100%. 5. coating technician to follow. Met with patient today [...] time. Will continue to monitor. RHIANNON BirminghamR Pager:[phone] * Evan White DO - 09/09/2023 12:28 [...] sign off. Please Epic message or page [phone] with questions. 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 - continue home aspirin 81mg daily, holding atorvastatin 20mg daily Gout: continue home allopurinol 200mg daily BPH: continue home flomax 0.4mg daily DVT PPX: SQH Code Status: Full Code Disposition: Pending clinical course. Anticipate eventual discharge home. Discussed with team and attending, Reese Sage MD, on rounds. Signed, Evan Kelly MD * Evanjuan j White, DO - 09/08/2023 3:12 PM EDT Transplant [...] to follow. Please Epic message or page [phone] with questions. 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 - continue home aspirin 81mg [...] CREATSERUM 5.05 (H) 11/19/2018 [facility] MD, [facility] Internal Wholesaler of Clinical Medicine [facility] * Ann Marie [...] to follow. Please Epic message or page [phone] with questions. Ann Marie Haskins MD PGY-4, [...] he continues to improve. Please message via [employer] secure chat or page with any questions or concerns. Evan White DO Internal Wholesaler Division of Infectious Disease * Evan White [...] to follow. Please Epic message or page [phone] with questions. Evan White DO Transplant Infectious Diseases * Crow Diaz MD - 09/06/2023 1:02 PM EDT Images from the original note were not included. Pulmonary/Critical Care Medicine Daily Progress Note Reason for Consultation: bronch for infectious workup Requesting Physician: Dr. Sage CURRENT HOSPITALIZATION: Admit Date: 08/28/2023 [facility] Hospital LOS: 9 days [...] and interpreted reviewed the radiographic [facility] 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 - continue home aspirin 81mg [...] 5.05 (H) 11/19/2018 Reese Sage MD, SERA Internal Wholesaler of Clinical Medicine [facility] * Crow Diaz MD - 09/05/2023 4:33 PM EDT Images from the original note were not included. Pulmonary/Critical Care Medicine Daily Progress Note Reason for Consultation: bronch for infectious workup Requesting Physician: Dr. Sage CURRENT HOSPITALIZATION: Admit Date: 08/28/2023 [facility] Hospital LOS: 8 days [...] and interpreted reviewed the radiographic data in [facility]. * Fredi Mcfarlane OT - 09/05/2023 2:50 [...] Assessment: Transfer Assessment: Sit to Stand Transfer Ripley Level: Sit->Stand: independent Skilled Intervention/Details: Sit->Stand: x1 from EOB, x1 from toilet Stand to Sit Transfer Ripley Level: Stand->Sit: independent Skilled Intervention/Details: Stand->Sit: x1 to toilet, x1 to EOB Functional Mobility: Functional Mobility Ripley Level: Functional Mobility/Gait: independent Ambulation Distance (Feet): 20 Skilled Intervention/Details - Functional Mobility/Gait: pt performed functional mobility to/from RR w/ no overt LOB Outcome Score(s): CURRENT [facility] Daily Activity Inpatient Short Form Putting on/Taking Off Lower Body Clothin - A Little Assistance Bathin - A Little Assistance Toiletin - A Little Assistance Putting on/Taking Off Upper Body Clothin - No Assistance Groomin - No Assistance Eatin - No Assistance CURRENT [facility] Activity Raw Score: 21 CURRENT [facility] Activity Functional Limitation/Modifier: 32.79% Currently [...] Intact Mobility Assessment: Supine to Sit Mobility Ripley Level: Supine->Sit: modified independence Bed Features/Set-up: Supine->Sit: Head of bed elevated Sit to Supine Mobility Ripley Level: Sit->Supine: not tested Balance: Sitting Balance [...] environment. Transfer Assessment: Sit to Stand Transfer Ripley Level: Sit->Stand: independent Skilled Intervention/Details: Sit->Stand: From EOB x 2 without difficulty. Stand to Sit Transfer Ripley Level: Stand->Sit: independent Assistive Device: Stand->Sit: armed chair Skilled Rationale: Verbal cues, Positioning Gait/Functional Mobility: Gait Assessment Ripley Level: Gait: stand-by assist Assistive Device: Gait: rollator Ambulation Distance (Feet): 400 Gait Deviations Identified: decreased grace, decreased gait speed Gait Skilled Rationale: verbal, upright posture, increase step length, increase foot clearance Skilled Intervention/Details - Gait: Reasonable foot clearnce without loss of balance but endorsingdyspnea as 6-7/10. 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 - continue home aspirin 81mg [...] 5.05 (H) 11/19/2018 Reese Sage MD, MADISONN Internal Wholesaler of Clinical Medicine [facility] * Evan White, DO - 09/04/2023 3:25 PM EDT Transplant Infectious [...] to follow. Please Epic message or page [phone] with questions. Evan White DO Transplant Infectious Diseases * Evan Kelly MD - 09/04/2023 1:20 PM EDT Images from the original note were not included. 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 - continue home aspirin 81mg [...] P 450 system Reese Sage MD, SERA Internal Wholesaler of Clinical Medicine [facility] * Laurel [...] MD, PhD Internal Medicine and Pediatrics PGY-3 [facility] * Laurel Serrano MD, PhD [...] MD, PhD Internal Medicine and Pediatrics PGY-3 [facility] * Evan White, DO - [...] continue tofollow. Please Epic message or page [phone] with questions. 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 - continue home aspirin 81mg [...] 5.05 (H) 11/19/2018 Reese Sage MD, FASN Internal Wholesaler of Clinical Medicine [facility] * Lora Lawrence [...] Lora Colón RN, MSN, CCM, CMCN Clinical Cane Flume Chute Operator- R10 Transplant #[phone] * BENJY Syed - 09/02/2023 11:17 AM EDT Made introductory visit with patient. Provided emotional and spiritual support. Patient shared about: - Source of Rosemary: Camping/Fishing/Family - Spirituality/Taoism Affiliation: raised Roman Catholic - Family Support/history - Experience with illness/hospital course - Hopes for healing/future Solvent Recoverer provided: - Supportive presence - Active listening - Validation of feelings/emotions - Pledged prayer Patient encouraged to request a gun mechanic as needed. Chaplains are available in-house 24 hours a day and 7 days a week. For urgent matters in [facility], please page [phone]. If the request is not urgent, please enter a consult. Consults are responded to within 24 hours. Senior Staff Chaplain Angie Singh Mdiv, [facility] Davis [phone] [email or web address] 22/06 On-call Kirk: [phone] 22/06 Pager ,KIKE, and Brock Debbie Maciel Pager [phone] 09/02/23 1119 Clinical Encounter Type Visited With Patient Visit Type Introduction Pastoral Time Spent 15 min Referral Other (See Comment) (rounding) Spiritual Assessment Spiritual Observation Spirituality helpful Emotional Observation Coping well Hope Observation Specific hope focus Support Observation By Family Interventions Provided Active listening;Supportive presence Facilitated Verbalization of feelings Explored Expectations Walking Dragline Oiler Education Walking Dragline Oiler Service Available Yes Educated Patient Outcomes Patient [...] goal of average po being 100%. 5. coating technician to follow. George Styles is a 53 y.o. 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 His post- transplant course was noteworthy for nephrostomy tube (05/17/2022-09/10/2022) due to concern for ureteral stone. He presents as a direct admission for fever, cough, for infectious workup. Pt unavailable and information obtained via chart review Title Specialist Screening Pt's appetite is good. Pt [...] with meds Food Allergies reviewed:Shellfish Cultural or Taoism Restrictions/Preferences: None GI: Last Bowel Movement: 09/01/23 [...] Will continue to monitor. Cecilia Mattson DTR Pager:[phone] * Evan Kelly MD - 09/01/2023 3:44 PM EDT Internal Medicine Daily Progress Note Patient: George Styles, 1970, [id number] Physician: Evan Kelly MD, PGY-1, TM1 service [...] BACTERIAURIN ABSENT 08/29/2023 Blood cultures 9/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 - continue home aspirin 81mg [...] as outlined above. Reese Sage MD Pager [phone] * Heidy Lurdes - 09/01/2023 2:00 PM EDTSummary: Pharmacy Med Rec Department of Pharmacy Admission Medication Reconciliation Note Patient: George Stylse Room/Bed: 1062/A The patient's allergies have been [...] Provider: Zuly Bruno NP Pharmacy: [facility] Other Comments: Patient reported his Last Home Dose of mycophenolate & tacrolimus was on 08/28/23 at 0900. Patient reported he was taking Bactrim and benzonatate for fevers and a cough he was having. Please feel free to contact me with any further questions. Name: Heidy Chatman Phone #: [phone] Date/Time: 09/01/2023 2:01 PM Time Spent: 15 minutes Associated attestation - Matt Kramer RPh,PharmJenna - 09/01/2023 2:28 PM EDT Department of Pharmacy Admission Medication Reconciliation Note Patient: George Styles Room/Bed: 1062/A I have reviewed the home medication list with the Iron Worker Apprentice. All changes to the home medication list have been updated in [facility]IS. Updated BRICK POINTER Med List: Prior to Admission Medications Prescriptions [...] with any further questions. Name: Matt Kramer sylvester,PharmD Phone #: [phone] Date/Time: 09/01/2023 2:28 PM * Evan rTay White, DO - 08/31/2023 4:49 PM EDT [...] crypto antigen, EBV PCR -follow pending histo, [id number] labs These recommendations were discussed with the primary team. Transplant ID (Team 3) will continue tofollow. Please Epic message or page [phone] with questions. 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 - continue home aspirin 81mg [...] 3 completed shifts: In: 1660 [P.O.:1660] Out: 2075 [Urine:2074] No intake/output data recorded. LABS Lab [...] 5.05 (H) 11/19/2018 Reese Sage MD, SERA Internal Wholesaler of Clinical Medicine [facility] * Kasandra Hurt [...] Yes Name and Contact information: Gian Styles ([phone]) Reviewed and Updated in Demographics? : Yes [...] patient on Anticoagulation? : No [id number] [place] [address] - [address] [facility] [address] [facility] [address] Corrugated Box Machine Operator Does the patient or client support representative express financial concerns? : No [...] Plan 1. Identified self and role as Cane Flume Chute Operator. 2. Confirmed and updated demographics and treatment team. 3. Cane Flume Chute Operator will continue to follow with medical team/pt for any other additional discharge needs. Kasandra DON RN [facility] [phone] *Please note I am float CM and work Thursday and Thursday every other week. Please call [phone] for assist in my absence. 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 - continue home aspirin 81mg daily, atorvastatin 20mg daily Gout: continue home allopurinol 200mg daily BPH: continue home flomax 0.4mg daily DVT PPX: SQH Code Status: Full Code Disposition: Pending clinical course. Anticipate eventual discharge home. Discussed with team and attending, Reese Sage MD, on rounds. Signed, Laurel Serrano MD, PhD documented [facility] encounterK[facility]10[facility]23 Hospital Discharge instructions* Discharge Instructions* Laurel Serrano [...] a sleep doctor. You will need to cherry picker operator the oxygen concentrator when you [...] focus on healthy foods. documented in this encounterKettering Health10-03-2023 Consult note* Izzy Loera MD - 09/01/2023 12:26 PM EDTAssociated Order(s): IP CONSULT TO PULMONOLOGY Pulmonary Medicine Inpatient Consultation Reason for Consultation: bronch for infectious workup Requesting Physician: Dr. Sage Pulmonary Attending Physician: Dr. Diaz CURRENT HOSPITALIZATION: Admit Date: 08/28/2023 [facility] Hospital LOS: 4 days [...] Recommendations: - Plan to bronch tomorrow morning. NPO@KS, order placed - would repeat HIV, last [...] short period of time. 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 Other histories as documented in [...] team with questions. Discussed with attending, Dr. Ko. Liam Julian MD Infectious Disease Fellow HISTORY [...] contacts. He traveled to [place] to [facility] in May. REVIEW OF SYSTEMS A [...] DAY SURGERY MAIN OR KIDNEY TRANSPLANT W/O KASIGLUK NEPHRECTOMY N/A 04/12/2020 Laterality: N/A; Surgeon: LU [...] indices and no hydronephrosis. Associated attestation - Cristóbal Ko MD - 08/30/2023 2:36 AM EDT Images [...] source of fever, can recommend other testing. Cristóbal Ko MD I can be reached via [employer] secure message (preferred) or Pager #[phone] documented in this encounterKettering Health09-29-2023 History and physical note* Aric Turner MD - 08/28/2023 6:14 PM EDT Images from the original note were not included. Internal Medicine Admission History & Physical Patient: George Styles, 1970, [id number] Physician: Aric Turner MD, PGY1, Pager #[phone], service Date of face to face patient [...] So he went to see the transplant front office administrator. He was found elevated Cr and asked [...] Appetite is ok now. Urine is about 2554-8838 ml every day. 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 - continue aspirin 81mg daily, [...] Erma Roe, Melania Pierson, Luisa Steven, Renee Freed, Daisha Max Precast Concrete Products Installer: José Miguel Garnica All Txt: 04/13/2020 [...] results found for: CYCLOSPORIN , CYCLOSPORIN2 , [id number] , CYCLORAND No results found for: SIROLIMUS [...] Rest as above. Reese Sage MD Pager [phone] documented in this encounterU [facility] History of Present illness Narrative* Rochelle Ribeiro RN - 08/28/2023 2:15 PM EDT Images from the original note were not included. 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: Anayeli Burt Date of Liver Transplant: 04/13/2020 (Kidney), 04/13/2020 (Liver) 3 years 4 months post Liver/Kidney Transplant Primary Disease: Hypertensive Nephrosclerosis Transplant Mime Artist: Erma Roe/ Daisha Max Primary Care physician: [...] 05/12/2020 TACROTRGHMAN 4.1 08/17/2023 TACROTRGHMAN 7.0 07/03/2023 LESLYE 5.9 04/28/2023 CHEMISTRY: Lab Results Component Value [...] aspirin, and faMOTIdine None Specified Preferred Lab: [place] Change in lab frequency / new order [...] every 12 hours. ADDITIONAL INFORMATION: None Specified, [place] [id number] [place] [address] - [address] [facility] [address] [facility] [address] [facility] [address] [facility] [facility] [address] [id number] [place] [address] [address] [facility] [address] [facility] [address] [facility] [address], [place] [address] [facility] [address] ROS and SCREEN: Chest Pain: negative Cough: [...] EDT I saw George Styles at the [facility] on 08/28/2023. Patient is a 53 y.o. 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 Steve Munoz MD chlorinator operator Division of [facility]rology [facility] documented in this encounterK[facility]09-29-2023 Instructions* Patient Instructions* Mainor Busby RN - 08/28/2023 2:15 PM EDT - Admission for fevers, cough, and night sweats documented in this encounterKettering Health09-20-2023 History of Present illness Narrative* Andressa Gutiérrez - 08/19/2023 2:52 PM EDT [facility] RX OUTREACH ADVANCED: Call Information: Date and Time of Contact: 08/19/2023 2:52 PM Method of Contact: By Phone Contact Type: Prescriptions Contactor: [facility] Contactee: Patient Shipping/Pickup: Medicare B Refill?: No Medication Name: Tacro 0.5mg Delivery Method: Air Delivery Location: Home Signature Required: No Mailing/Pickup Date: 08/25/2023 Shipping Address: [address] [place] [address] Contact Info: Specialty ([place]) [phone] [facility] [phone] [facility] [phone] David [phone] Bedside Delivery ([facility]) [phone] documented in this encounterKettering Health07-14-2023 History of Present illness Narrative* JEANNA Hess - 06/12/2023 3:00 PM EDT Images from the original note were not included. George Styles is a 53 y.o. 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 The HLA mismatch was 1A,2B, 1DR. No longer follows with a local front office administrator. History of Present Illness: Since George was [...] and lab results. Rebeca Gutierrez MSN, RN, ADDICTION SOCIAL WORKER-BC, CCTN Certified Nurse Practitioner [facility] [address] [facility] [address] documented in this encounterOSU [facility]07-14-2023 Instructions* Patient Instructions* JEANNA Hess - 06/12/2023 3:00 PM EDT No change in immunosuppression. documented in this encounterKettering Health07-12-2023 History of Present illness Narrative* Anne Choudhury - 06/10/2023 3:16 PM EDT [facility]: Call Information: Method of Contact: By Phone Contact Type: Prescriptions Contactor: [facility] Contactee: Patient Contact Outcome: Left message Shipping/Pickup: Medication Name: Mycophenolate sod 180 mg Contact Info: Specialty ([place]) [phone] [facility] [phone] [facility] [phone] David [phone] Bedside Delivery ([facility]) [phone] * Negra Burks - 06/10/2023 3:16 PM EDT [facility]REACH ADVANC[facility]: Call Information: Date and Time of Contact: 06/12/2023 9:43 AM Method of Contact: By Phone Contact Type: Prescriptions Contactor: [facility] Contactee: Patient Contact Outcome: Left message and Follow-up Shipping/Pickup: Medicare B Refill?: No Medication Name: Myco 180 Contact Info: Specialty ([place]) [phone] [facility] [phone] [facility] [phone] David [phone] Bedside Delivery ([facility]) [phone] * Mikaela Pierre - 06/10/2023 3:16 PM EDT [facility]ANC[facility]: Call Information: Date and Time of Contact: 06/12/2023 10:08 AM Method of Contact: By Phone Contact Type: Prescriptions Contactor: [facility] Contactee: Patient Shipping/Pickup: Medicare B Refill?: No Medication Name: Mycophenolate 180mg DR Delivery Method: Air Delivery Location: Home Signature Required: No Mailing/Pickup Date: 06/17/2023 Shipping Address: [address] [address] Contact Info: Specialty ([place]) [phone] Jakob [phone] [facility] [phone] David [phone] Bedside Delivery ([facility]) [phone] documented in this encounterKettering Health04-13-2023 History of Present illness Narrative* Anne Choudhury [...] Required: No Mailing/Pickup Date: 03/16/2023 Shipping Address: [address] [place] [address] Contact Info: Specialty ([place]) [phone] Jakob [phone] [facility] [phone] David [phone] Bedside Delivery ([facility]) [phone] * Andressa Gutiérrez - 03/12/2023 10:34 AM [...] Required: No Mailing/Pickup Date: 03/19/2023 Shipping Address: [address] [place] [address] [address] Contact Info: Specialty ([place]) [phone] Jakob [phone] [facility] [phone] David [phone] Bedside Delivery ([facility]) [phone] documented in this encounterOSProm[facility]04-11-[facility]23 History of Present illness Narrative* Vladislav Mcnally - 03/10/2023 11:58 AM EDT [facility] OUTREACH ADVANCED: Call Information: Date and Time of Contact: 03/10/2023 12:00 PM Method of Contact: By Phone Contact Type: Prescriptions Contactor: [facility] Contactee: Patient Contact Outcome: Left message and Call back later Shipping/Pickup: Medication Name: Mycophenolate ; Tacrolimus Contact Info: Specialty ([place]) [phone] Jakob [phone] [facility] [phone] David [phone] Bedside Delivery ([facility]) [phone] documented in this encounterOSU [facility]04-11-2023 History of Present illness Narrative* Vladislav Mcnally - 03/10/2023 11:58 AM EDT [facility] OUTREACH ADVANCED: Call Information: Date and Time of Contact: 03/10/2023 12:00 PM Method of Contact: By Phone Contact Type: Prescriptions Contactor: [facility] Contactee: Patient Contact Outcome: Left message and Call back later Shipping/Pickup: Medication Name: Mycophenolate ; Tacrolimus Contact Info: Specialty ([place]) [phone] Jakob [phone] [facility] [phone] David [phone] Bedside Delivery ([facility]) [phone] * Anne Choudhury - 03/10/2023 11:58 AM EDT [facility] OUTREACH ADVANCED: Call Information: Date and Time of Contact: 03/12/2023 10:32 AM Method of Contact: By Phone Contact Type: Prescriptions Contactor: [facility] Contactee: Patient Contact Outcome: Left message Shipping/Pickup: Medication Name: Mycophenolate sodium (MYFORTIC) 180 MG Tab tacrolimus 0.5 mg Contact Info: Specialty ([place]) [phone] Jakob [phone] [facility] [phone] David [phone] Bedside Delivery ([facility]) [phone] documented in this encounterU [facility]02-17-2023 History of Present illness Narrative* Daisha Max DO - 01/16/2023 9:40 AM EST -Referring Provider for today's consult: Daisha Max DO -Primary Care Provider: Zuly Bruno History of Present Illness Goerge Styles is a 52 y.o. male who [...] DAY SURGERY MAIN OR KIDNEY TRANSPLANT W/O KASIGLUK NEPHRECTOMY N/A 04/12/2020 Laterality: N/A; Surgeon: LU [...] 0.3 12/29/2022 Explant Pathology Pathologic Diagnosis A. [place] liver, orthotopic liver transplant resection (1458 gram): [...] A/P with IV contrast (06/27/2022): 1. Both ione kidneys are atrophic with improvement in right-sided [...] frequent nighttime urination, etc). Daisha Max DO Internal Wholesaler Gastroenterology, Hepatology and Nutrition [facility] Pager: [phone] * José Miguel Garnica RN - 01/16/2023 9:40 AM EST Images from the original note were not included. 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: Anayeli Burt Date of Liver Transplant: 04/13/2020 (Kidney), 04/13/2020 (Liver) 2 years, 8 months post Liver/KidneyTransplant Primary Disease: Hypertensive Nephrosclerosis Transplant Mime Artist: Steve Munoz Primary Care physician: Zuly Bruno [...] levels: No results found for: CYCLOSPORIN, CYCLOSPORIN2, [id number], CYCLORAND No components found for: CYCLOSPORINE, 2HR [...] hours. ADDITIONAL INFORMATION: None Specified [id number] [place] [address] - [address] [facility] [address] [facility] [id number] [facility] [place] [facility] [address] [facility] [address] [id number] [place] [address] [address] [facility] [address] [facility] [address] [facility] Jakob [address], [place] [address] [facility] [address] ROS and SCREEN: Chest Pain: negative Cough: negative SOB: negative Abd Pain: negative Nausea: negative Vomiting: negative Diarrhea: negative Constipation: negative Dysuria: negative Edema: negative Tremors: negative Headaches: negative Wound issues: negative Alcohol consumption: no Cigarette smoking, smokeless tobacco or vaping/e-cigarette use: no Marijuana (any form), CBD oil or street drug use: no QUESTIONS OR CONCERNS TO ADDRESS WITH PHYSICIAN: documented in this encounterKettering Health02-17-2023 Instructions* Patient Instructions* José Miguel Garnica RN - 01/16/2023 9:40 AM EST - Labs Every 2 months - Discuss night time urination with your PCP - Schedule Colonoscopy through PCP - Follow up in 1 year documented in this [facility]10-12-2022 History of Present illness Narrative* [...] and no hydronephrosis. Some reflux up the ione right ureter but good drainage of both transplant and ione ureter to the bladder. Nephrostomy tube was [...] transplant, orthotopic (N/A, 04/12/2020); kidney transplant w/o ione nephrecto my (N/A, 04/12/2020); and placement nephrostomy [...] Negative for , diarrhea, constipation Genitourinary: See [place] Neurological: Negative for headaches. Lymph/Heme: Negative [...] x 4, Normal strength. No edema. Skin: [place], warm, and dry. There are no rashes [...] and no hydronephrosis. Some reflux up the ione right ureter but good drainage of both transplant and ione ureter to the bladder. Nephrostomy tube was [...] Ryan Yepez MD 09/10/22 documented in this encounterU [facility]08-08-2022 History of Present illness Narrative* Tati [...] assisted off the table and escorted to entry level receptionist where they made a follow up. [...] to have transplant ureter with anastomosis to ione right ureter. Nephrostogram without filling defects and no hydronephrosis. Some reflux up the ione right ureter but good drainage of both transplant and ione ureter to the bladder. Nephrostomy tube was removed without issue. Patient does have some sensation of incomplete bladder emptying and occasional sensation in his right flank. PVR today was 33cc. Will re-evaluate urinary symptoms at next appointment. --continue Flomax --RTC in one month flow flow/PVR/IPSS Patient to call with any additional questions or concerns. 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 Lymph/Heme: Negative [...] x 4, Normal strength. No edema. Skin: [place], warm, and dry. There are no rashes [...] yo male with a DDRT to the [facility] in 2019. Nephrostomy tube placed 05/17 [...] bag if needed. documented in this encounterOSU [facility]lap [facility] Hospital07-29-2022 History and physical note* JEANNA Padilla - 06/27/2022 10:40 AM EDT Patient was evaluated in clinic as a nurse visit. Please refer to Rena Brewster's note. [facility] Work Phone: [phone] 201-109007-29-2022 History and physical note* JEANNA Padilla - 06/27/2022 10:40 AM EDT Patient was evaluated in clinic as a nurse visit. Please refer to Rena Brewster's note. documented in this encounterOSU [facility]07-29-2022 History of Present illness Narrative* Rena Brewster RN - 06/27/2022 10:40 AM EDT TEACHING REGARDING TX NEPH COMPLETED-NEPH TUBE SITE DRY AND INTACT-CLEAR YELLOW URINE IN THE BAG-INSTRUCTED ABOUT FLUSHING, BAG CHANGING ETC. NUMEROUS QUESTIONS ASKED AND ANSWERED-VERBALIZED UNDERSTANDING documented in this encounterOSU [facility]lap [facility] Hospital07-20-2022 NoteEXAMINATION: CT ABD/PELVIS WO CON HISTORY: [...] mass or enlargement. KIDNEYS: Marked atrophy of ione kidneys. Transplant right pelvic kidney with percutaneous [...] Electronically authenticated by: MÓNICA JIMENEZ Date: 2022-06-18 13:53[facility]07-14-2022 Instructions* Patient Instructions* Anayeli Christianson RN - 06/12/2022 3:21 PM EDT Do not take apart/disrupt nephrostomy tube system. Call Interventional Radiology and/or on-call transplant nurse [phone] for instruction if need to flush (clot or decreased flow). Take cipro 500mg, one tablet, twice per day for 14 days documented in this encounterKettering Health07-14-2022 History of Present illness Narrative* Roxanne Grimes RN - 06/12/2022 2:15 PM EDT Images from the original note were not included. 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: Anayeli Burt Date of Liver Transplant: 04/13/2020 (Kidney), 04/13/2020 (Liver) 2 year, 1 months post Liver/Kidney Transplant Primary Disease: Hypertensive Nephrosclerosis Transplant Mime Artist: Steve Munoz Primary Care physician: Zuly Bruno [...] transport for appointment: no Did front office administrator confirm current address and insurance information is [...] LAB AND PHARMACY: None Specified [facility] [place] [id number] - [address] [place] [id number] [facility] [place] [facility] [address] [facility] [address] [id number] - [place] [id number] - [address] [facility] [address] [facility] [address] [facility] [address], [place] [address] [facility] [address] ROS and SCREEN: Chest Pain: negative Cough: [...] EDT I saw George Styles at the [facility] on 06/12/2022. Patient is a 52 y.o. 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 Steve Munoz MD chlorinator operator Division of [facility] documented in this encounterKettering Health07-06-2022 Instructions* Patient Instructions* TATI GROVE - 06/04/2022 11:04 AM EDT Thank you for joining us for your neph tube follow up. We recommend routine exchange every 8-10 weeks. Please reach out at [phone] when it is time to set your next routine exchange. Thank you IR clinic documented in this encounterKettering Health07-06-2022 History of Present illness Narrative* Litzy Brice [...] to schedule exchange.Verbalized understanding. documented in this encounterKettering Health06-21-2022 Note* Nursing Notes - Leon Cook RN [...] of his discharge. Leon Cook RN [facility]06-21-2022 Miscellaneous Notes* Nursing Notes - Leon Cook [...] provide teaching before his discharge Leon RN #[id number] Leon Cook RN * Plan of Care [...] - 05/19/2022 12:44 PM EDT Discussed with [place] re: possible urine culture performed at their [...] with questions. Evan Byrd MD Urology, PGY-2 #[id number] * Certification - Nishant Gamez MD - [...] LDA Added:Amanda Lorenzana RN documented in this encounterOSU [facility]lap [facility] Hospital06-21-2022 Note* Plan of Care - Leon [...] of care. Outcome: Adequate for Discharge [facility]06-21-2022 Note* Nursing Notes - Leon Cook RN - 05/20/2022 2:01 PM EDT Anne Dillard MD R10 [address] [place] Please let's have a clear order on how the nephrostomy site dressing need to be changed when the patient goes home so we provide teaching before his discharge Leon RN #[id number] Leon Cook RN [facility]06-21-2022 History of Present illness Narrative* Yanira Her RPh,PharmD - 05/20/2022 12:01 PM EDT Images from the original note were not included. [facility] Note: [facility] received the following discharge prescription(s): Medication reconciliation was completed with comparison to discharge reconciliation report. The prescription(s) will be delivered to the patient's bedside on 05/20/22. Total cost is $0. Yanira Her RPh,PharmD Specialty ([place]) [phone] [facility] [phone] [facility] [phone] David [phone] [place] [phone] Bedside Delivery ([facility]) [phone] * Maxi Pringle MD - 05/19/2022 12:32 PM EDT Attending I saw George Styles at the [facility] on 05/19/2022. I saw and independently evaluated [...] Daily Progress Note Patient: George Styles, 1970, [id number] Physician: Liam Julian MD, PGY-3, Pager #[phone], [email or web address] Subjective/Interval History: No acute events overnight. Passed [...] test if transplantnephrology still thinks appropriate. Daya Gao) Jeff Saldana MD Division of Hospital Medicine Pager [phone] * Maxi Pringle MD - 05/18/2022 7:39 AM EDT Attending I saw George Styles at the [facility] on 05/18/2022. 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 Daya (Nunu) Jeff Saldana MD Division of Hospital Medicine Pager [phone] * Nishant Gamez MD - 05/17/2022 8:04 AM EDT Internal Medicine Daily Progress Note Patient: George Styles, 1970, [id number] Physician: Nishant Gamez MD, PGY2, Pager #[phone], [email or web address] Subjective/Interval History: Worsening creatinine this morning with [...] bicarb and slowly elevating potassium and phosphorus. [place] repeat his chemistry this afternoon. His fistula is still working to his knowledge. Daya Gao) Jeff Saldana MD Division of Hospital Medicine Pager [phone] * Maxi Pringle MD - 05/17/2022 7:07 AM EDT Attending I saw George Styles at the [facility] on 05/17/2022. I saw and independently evaluated [...] review of chart and discussion withtreatment team, Cane Flume Chute Operator has not identified needs at this [...] EDT Introduced self and role of the gun mechanic to patient. Provided emotional and spiritual support and the patient responded by sharing their experience and discussed the following: - Spirituality/Taoism Affiliation: As a kid attended Roman Catholic catholic but not a strong identity now - Family support - pt's brothers live close by Solvent Recoverer provided: - Supportive presence - Active listening - Validation of feelings/emotions Patient encouraged to request a gun mechanic as needed. Chaplains are available in-house 24 hours a day and 7 days a week. For urgent matters in [facility], please page [phone]. If the request is not urgent, please enter a consult. Consults are responded to within 24 hours. Angie Singh Mdiv, [facility] Burn Unit and Transplant [place] [address] Solvent Recoverer [facility] Solvent Recoverer Kirk [phone] [email or web address] [facility] Pager [phone] 22/06 Pager ,[facility], and [place] 1500 22/06 David Pager [phone] 05/16/22 1123 Clinical Encounter Type Visited With Patient Visit Type Introduction Pastoral Time Spent 15 min Referral Other (See Comment) (Rounding) Spiritual Assessment Spiritual Observation Spirituality helpful;Identifies as (see comment) (Voodoo) Emotional Observation Coping well Hope Observation Hopeful and accepting Support Observation By Family Interventions Provided Active listening;Supportive presence Facilitated Verbalization of feelings;Sharing of life story;Identifying support system Explored Expectations Walking Dragline Oiler Education Walking Dragline Oiler Service Available Yes Educated Patient Outcomes Patient Outcomes Articulated purpose/meaning Plan of Care Continue Visiting PRN * Nishant Gamez MD - 05/16/2022 8:27 AM EDT Internal Medicine Daily Progress Note Patient: George Styles, 1970, [id number] Physician: Nishant Gamez MD, PGY2, Pager #[phone], [email or web address] Subjective/Interval History: Overall feeling okay this morning. 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 [...] Supervision Transfer Assessment: Sit to Stand Transfer [place] Level: Sit->Stand: independent Skilled Intervention/Details: Sit->Stand: x1 from EOB Stand to Sit Transfer [place] Level: Stand->Sit: supervision Assistive Device: Stand->Sit: armed chair Skilled Rationale: Controlled descent for sitting, Verbal cues Gait/Functional Mobility: Gait Assessment [place] Level: Gait: supervision Assistive Device: Gait: gait belt Gait Distance (feet): 200 Gait Deviations Identified: decreased grace, decreased step length, decreased stride length Gait Skilled Rationale: verbal, upright posture Skilled Intervention/Details - Gait: Pt with steady gait without LOB or complaints of SOB. Stairs: Stairs Assessment [place] Level: Stair Negotiation: stand-by assist Assistive Device: Stair Negotiation: gait belt, left rail (ascending) Number of stairs: 9 Stairs Skilled Rationale: reciprocal pattern Outcome Score(s): CURRENT [facility] Basic Mobility Inpatient Short Form Turning over in bed: 4 - No Assistance Sitting/standing from chair: 4 - No Assistance Moving from lying on back to sittin - No Assistance Moving to and from bed to chair: 4 - No Assistance Walk in hospital room: 3 - A Little Assistance Climbing 3-5 steps with a railin - A Little Assistance CURRENT [facility] Mobility Raw Score: 22 CURRENT [facility] Mobility Functional Limitation/Modifier: 20.91% Currently [...] community) 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 IADL History IADLs: independent Primary Language: Grenadian Home Management Skills: independent Meal Prep Responsibility: [...] Assessment: Transfer Assessment: Sit to Stand Transfer [place] Level: Sit->Stand: independent Skilled Rationale: Cues for increased safety Skilled Intervention/Details: Sit->Stand: x1 EOB Stand to Sit Transfer [place] Level: Stand->Sit: supervision Assistive Device: Stand->Sit: gait belt, armed chair Skilled Rationale: Verbal cues, Controlled descent for sitting, Cues for increased safety Skilled Intervention/Details: Stand->Sit: cues for hand placement and controlled descent Functional Mobility: Functional Mobility [place] Level: Functional Mobility/Gait: stand-by assist Assistive Device: Functional Mobility/Gait: gait belt Functional Mobility Distance: Distance needed for limited community mobility Functional Mobility Deficits: Activity tolerance, Balance, Decreased step length, Generalized weakness Functional Mobility Skilled Rationale: Verbal cues, Facilitate postural control Skilled Intervention/Details - Functional Mobility/Gait: cues for upright posture Outcome Score(s): CURRENT -[facility] Daily Activity Inpatient Short Form Putting on/Taking Off Lower Body Clothin - A Little Assistance Bathin - A Little Assistance Toiletin - A Little Assistance Putting on/Taking Off Upper Body Clothin - No Assistance Groomin - No Assistance Eatin - No Assistance CURRENT -[facility] Activity Raw Score: 21 CURRENT -[facility] Activity Functional Limitation/Modifier: 32.79% Currently [...] DAY SURGERY MAIN OR KIDNEY TRANSPLANT W/O KAS[place]LUK NEPHRECTOMY N/A 04/12/2020 Laterality: N/A; Surgeon: LU [...] by: Mel Norman OT, OTR/L License #: [id number] pager # [phone] 05/20/2022 Upon discontinuation of Acute Care Occupational Therapy Services or patient discharge from the hospital this note represents the current Occupational Therapy Discharge Summary. documented in this encounterKettering Health06-21-2022 Hospital course Narrative* Nishant Gamez MD - [...] recent hospital stay at [facility]. As you may know, George [...] Saldana MD Division of Hospital Medicine p: [phone] f: [phone] CONSULTS DURING ADMISSION: IP CONSULT TO SURGERY - UROLOGY IP CONSULT TO NEPHROLOGY - TRANSPLANT (MEDICINE) IP CONSULT TO INTERVENTIONAL RADIOLOGY IP CONSULT TO PHYSICAL THERAPY IP CONSULT TO OCCUPATIONAL THERAPY IP CONSULT TO PHARMACY BEDSIDE DISCHARGE MED DELIVERY IMAGING / PROCEDURES / RESULTS: Should you require further information or copies of results or reports please contact Medical Information Management @ [phone] LABS AT TIME OF DISCHARGE: Lab Results [...] HOME AT DISCHARGE: Zuly Kiana [address] [facility] / [place] [address] MEDICATIONS: Discharge Orders CT ABDOMEN/PELVIS WITHOUT CONTRAST [...] CAPS Generic drug: docusate Follow-up: Zuly Bruno, [employer] TECHNICIAN [address] [facility] [address] Schedule an appointment as soon as possible for a visit Follow-up appointment with your, primary care physician within 7-10 days, after discharge. [address] [facility] [address] Follow up The department of urology [...] Phone 06/04/2022 10:40 AM IR [facility] Interventional Radiology Clinic [phone] 06/27/2022 1:[address] [facility], [facility] Department of Radiology Arrive at: Arrive to First Floor Registration Desk [phone] 06/27/2022 2:40 PM Ryan Yepez [facility] Arrive at: Arrive to 2nd Floor, Registration [id number] 10/31/2022 1:00 PM [facility] [phone] 01/16/2023 9:40 AM TRANSPLANT HEPATOLOGY 3, [facility] Transplant [facility] [phone] Associated attestation - Daya Saldana MD - [...] Saldana MD Division of Hospital Medicine Pager [phone] documented [facility] encounter[facility] Hospital Discharge instructions* Discharge Instr - [...] be changed by Interventional Radiology. Please call [phone] to schedule this appointment and with any questions or concerns you may have regarding the nephrostomy tube. If you have questions or concerns, please call Interventional Radiology at SOMEONE FROM INTERVENTIONAL RADIOLOGY WILL CALL YOU FOR A FOLLOW UP IN THE CLINIC Giulia Cavazos RN Nurse Coordinator Interventional Radiology Interventional Radiology Outpatient scheduling documented [facility]* Plan of Care - Josey [...] Goal: Interdisciplinary Rounds/Family Conf Outcome: [facility]ng[facility]ing [facility]* Plan of Care - Liam Julian MD - 05/19/2022 12:44 PM EDT Discussed with [place] re: possible urine culture performed at their facility. However, based on urinalysis completed at that time, which was only notable for hematuria, culture was not performed and sample no longer feasible for culture. Liam Julian MD Internal Medicine/Pediatrics, PGY-3 [facility] Note* Nursing Notes - Carolyn Isaac RN - 05/18/2022 8:03 PM EDT 2002: IHIS message sent to Dr Justyn Wen, regarding patient passing a small kidney stone, about the size of pea. notified. Stone left in strainer in pt bathroom. 0500: IHIS message sent to Dr Justyn Wen, regarding pt BP 174/77. [facility]* Plan of Care - Mel [...] by discharge/transition of care. Outcome: Ongoing [facility]06-19-2022 Note* Plan of Care - Елена Martinez [...] NS should instead be used. [facility] Work Phone: 1(267) 195-319806-19-2022 Note* Nursing Notes - Carolyn Isaac RN - 05/18/2022 4:37 AM EDT IHIS chat sent to Dr Tray Quintana, regarding pt BP 190/86. Pt complaining of pain at site of neph tube. PRN pain medication given per order parameters. Pt denies any other symptoms at this time. MD notified and aware. [facility]06-18-2022 Note* Nursing Notes - Danitza Thompson RN - 05/17/2022 12:28 PM EDT At 0900, I rounded with Dr. Gamez and Dr. Saldana. At that time I checked Mr. Styles's vital signs. His pulse oximeter was low and he was tachypneic. Verbal order at bedside to put nasal cannula on starting at 2liters oxygen and to provide incentive spirometer. [facility]06-18-2022 Note* Nursing Notes - Meka Rincon RN - 05/17/2022 10:52 AM EDT Interventional Radiology procedure completed with IR Attending Dr. Heart / Dr. Le of percutaneous right nephrostomy tube placement transplant kidney 10.2 Fr Griffin acosta Pt tolerated procedure with moderate sedation local numbing agent . Transported to inpatient after phase I recovery. Post procedure orders in place. [facility]06-17-2022 Note* Nursing Notes - Danitza Thompson RN - 05/16/2022 4:57 PM EDT At 1530, I text chavad Kaitlynn Gomez MD that patient has only had 25ml urine output in matias this afternoon. [facility]06-17-2022 Note* Plan of Care - Evan Byrd [...] with questions. Evan Byrd MD Urology, PGY-2 #[id number] [facility] Work Phone: 1(899) 101-152306-17-2022 Note* Certification - Nishant Gamez MD - 05/16/2022 11:20 AM EDT I certify that this patient requires inpatient services at this time. I anticipate the expected length of stay will include at least two midnights. Inpatient services are due to the following medicalconcerns Obstructive kidney stone. Plans for post hospitalization care will be discharge to home. [facility] Consult note* Maria De Jesus Pollock MD, PhD - 05/16/2022 9:37 AM EDTAssociated Order(s): IP CONSULT TO NEPHROLOGY - TRANSPLANT (MEDICINE) I saw George Styles at the [facility] on 05/16/2022. Reason for Consultation: kidney stone [...] where he was given flomax and senthome. [place] better but noticed more pain and decreased [...] and recommendations. Maxi Pringle MD [facility] Work Phone: 1(886) 163-433006-17-2022 Consult note* Maria De Jesus Pollock MD, PhD - 05/16/2022 9:37 AM EDTAssociated Order(s): IP CONSULT TO NEPHROLOGY - TRANSPLANT (MEDICINE) I saw George Styles at the [facility] on 05/16/2022. Reason for Consultation: kidney stone [...] where he was given flomax and senthome. [place] better but noticed more pain and decreased [...] states he went to his local ED [place] and he was put on Flomax and he did improve. Pt states last night he was unable to void with severe right sided abd pain. Pt states nausea and no vomiting or fevers. Pt states he went back to [place] ED at 0100 and they placed a [...] orthotopic (N/A, 04/12/2020); and kidney transplant w/o ione nephr ectomy (N/A, 04/12/2020). 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 The ione kidneys are progressively atrophic bilaterally compared to [...] of 06/14/2020 are no longer present. The ione distal right ureter is decompressed beyond this [...] with surgical history for renal graft and ione right urinary drainage, as a discrete ureteroneocystostomy is not identified, and the graft may be draining via a ureteroureterostomy. Urology consultation recommended. 3. The ione kidneys are bilaterally atrophic, with right renal sinus calcifications consistent with nonobstructing right ione renal calculi up to 6 mm. Normal [...] PGY-3, Department of Urologic Surgery Pager #: [phone] Associated attestation - Ryan Yepez MD - [...] intervention --may continue flomax documented in this [facility]* Plan of Care - Kallie [...] Trust Relationship/Rapport: care explained choices provided [facility]06-17-2022 Note* Nursing Notes - Kallie Lorenzana RN - 05/16/2022 2:29 AM EDT [facility], a dual RN initial assessment of skin condition was performed by Kallie Lorenzana RN and Sheri Arguelles RN. Skin Assessment: WDL Jose Score: 20 LDA Added:N Kallie Lorenzana RN [facility]06-16-2022 Emergency department Note* Karlie Bean RN - 05/15/2022 11:14 PM EDT Report given to Kallie RN at [facility]06-16-2022 Emergency department Note* Karlie Bean RN - [...] diagnosed Thursday and was sent home with [facility]. He went back to that [...] DAY SURGERY MAIN OR KIDNEY TRANSPLANT W/O KASIGLUK NEPHRECTOMY N/A 04/12/2020 Laterality: N/A; Surgeon: LU [...] 05/15/2022 2:15 PM EDT Pt arrives from [place] with kidney stones. Pt states he had right lower abd pain and right flank pain with blood in his urine since Thursday. Pt states he went to his local ED [place] and[place] was put on Flomax and he did improve. Pt states last night he was unable to void with severe right sided abd pain. Pt states nausea and no vomiting or fevers. Pt states he went back to [place] EDat 0100 and they placed a matias and CT scan completed and multiple kidney stones noted. [facility] 03/2020. documented in this encounterOS[facility]06-16-2022 History and physical note* Evan Bennett MD - 05/15/2022 9:18 PM EDT Internal Medicine Admission History & Physical Patient: George Styles, 1970, [id number] Physician: Evan Bennett MD, PGY1, Pager #[phone], GM 4 service Date of face to [...] DAY SURGERY MAIN OR KIDNEY TRANSPLANT W/O KASIGLUK NEPHRECTOMY N/A 04/12/2020 Laterality: N/A; Surgeon: LU [...] weakness. Hematological: Bruises/bleeds easily. Physical Exam: Vitals: 05/15/221813 BP: 147/59 Pulse: 73 Resp: 16 Temp: [...] erythema: Skin: No jaundice or rash Neuro: security project manager 3-7, 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 Strength [...] dilation of the calyces may represent narrowing/partial [id number] ofthe ureter and mild hydronephrosis or sequela [...] MD Division of Hospital Medicine [phone] [facility] Work Phone: [phone]) 830-172706-16-2022 History and physical note* Evan Bennett MD - 05/15/2022 9:18 PM EDT Internal Medicine Admission History & Physical Patient: George Styles, 1970, [id number] Physician: Evan Bennett MD, PGY1, Pager #[phone], GM 4 service Date of face to [...] DAY SURGERY MAIN OR KIDNEY TRANSPLANT W/O KASIGLUK NEPHRECTOMY N/A 04/12/2020 Laterality: N/A; Surgeon: LU [...] weakness. Hematological: Bruises/bleeds easily. Physical Exam: Vitals: 05/15/221813 BP: 147/59 Pulse: 73 Resp: 16 Temp: [...] erythema: Skin: No jaundice or rash Neuro: security project manager 3-7, 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 Strength [...] dilation of the calyces may represent narrowing/partial [id number] ofthe ureter and mild hydronephrosis or sequela [...] Hospital Medicine [phone] documented in this encounterOSU [facility]06-16-2022 Emergency department Note* Nisha Gardiner RN - 05/15/2022 7:02 PM EDT Bladder scan with Dr Villatoro at bedside, 14ml noted [facility] Consult note* Stephanie Tomas MD - [...] states he went to his local ED [place] and he was put on Flomax and he did improve. Pt states last night he was unable to void with severe right sided abd pain. Pt states nausea and no vomiting or fevers. Pt states he went back to [place] ED at 0100 and they placed a [...] orthotopic (N/A, 04/12/2020); and kidney transplant w/o ione nephr ectomy (N/A, 04/12/2020). 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 The ione kidneys are progressively atrophic bilaterally compared to [...] of 06/14/2020 are no longer present. The ione distal right ureter is decompressed beyond this [...] with surgical history for renal graft and ione right urinary drainage, as a discrete ureteroneocystostomy is not identified, and the graft may be draining via a ureteroureterostomy. Urology consultation recommended. 3. The ione kidneys are bilaterally atrophic, with right renal sinus calcifications consistent with nonobstructing right ione renal calculi up to 6 mm. Normal [...] PGY-3, Department of Urologic Surgery Pager #: [phone] Associated attestation - Ryan Yepez MD - [...] before surgical intervention --may continue flomax [facility] Work Phone: [phone] Emergency department Note* Nisha Gardiner RN - 05/15/2022 6:[address] Schneider concerning no urine output via matias catheter. [facility]-16[facility] Physician Emergency department Note* Gian Villatoro [...] care. Gian Villatoro MD 05/15/222003 [facility] Work Phone: [phone] Emergency department Note* Nisha Gardiner RN - 05/15/2022 5:[address] Schneider made aware of only 30 ml urine via matias since arrival to room. [facility]06-16-2022 Physician Emergency department Note* Matt Schneider MD [...] DAY SURGERY MAIN OR KIDNEY TRANSPLANT W/O KASIGLUK NEPHRECTOMY N/A 04/12/2020 Laterality: N/A; Surgeon: LU [...] incorrections. Matt Schneider MD Resident 05/15/222030 [facility] Work Phone: [phone]) 743-419706-16-2022 Emergency department Note* Lynn Rutherford RN - 05/15/2022 2:15 PM EDT Pt arrives from [place] with kidney stones. Pt states he had right lower abd pain and right flank pain with blood in his urine since Thursday. Pt states he went to his local ED [place] and[facility] was put on Flomax and he did improve. Pt states last night he was unable to void with severe right sided abd pain. Pt states nausea and no vomiting or fevers. Pt states he went back to [facility] EDat 0100 and they placed a matias and CT scan completed and multiple kidney stones noted. [facility] kidney [facility]2020. [facility] History of Present illness Narrative* Miranda [...] Required: No Mailing/Pickup Date: 03/17/2022 Shipping Address: [address] [place] [address] Contact Info: Specialty ([place]) [phone] [facility] [phone] [facility] [phone] David [phone] Bedside Delivery ([facility]) [phone] documented in this encounterOSU [facility]07-16-2021 History of Present illness Narrative* Angel [...] 05/16/22 Goal Progress: Satisfactory Contact Info: Specialty ([place]) [phone] [facility] [phone] [facility] [phone] David [phone] Bedside Delivery ([facility]) [phone] * Mallika Henderson - 06/14/2021 11:57 AM [...] Home Signature Required: Yes Shipping Address: [address] [place] [address] [address] [facility] [address] Contact Info: Specialty ([place]) [phone] Jakob [phone] [facility] [phone] [facility] [phone] Bedside Delivery ([facility]) [phone] documented in this encounterOSU [facility] HospitalEvaluation + Plan note Future Appointments Appointment Date:11/22/2024 09:00:00 AM Scheduled Provider:JONATHAN Almodovar APRN, [place] X Location:[facility] Appointment Type:URO Office Visit [facility] evaluation + Plan note Future Appointments Appointment Date:03/09/2025 10:20:00 AM Scheduled Provider:JONATHAN Almodovar APRN, [place] X Location:[facility] Appointment Type:URO Office Visit [facility] Evaluation note* Diagnosis FAYE (acute kidney injury)- Primary Acute kidney failure, unspecified Hydronephrosis due to obstruction of ureteral orifice Hydronephrosis due to obstruction of ureteral orifice FAYE (acute kidney injury) Acute kidney failure, unspecified documented [facility] this encounter [facility]* Diagnosis Follow-up exam- Primary Unspecified follow-up examination documented in this encounter [facility]* Diagnosis Immunosuppressed status- Primary Unspecified disorder of immune mechanism Kidney replaced by transplant Liver replaced by transplant Abnormal blood chemistry Other abnormal blood chemistry High risk medication use Encounter for long-term (current) use of other medications Aftercare following organ transplant Liver transplant recipient [facility] encounter [facility]* Diagnosis Attention to nephrostomy- Primary documented in [facility] encounter [facility]* Diagnosis Other hydronephrosis- Primary [facility]* Diagnosis FAYE (acute kidney injury) Acute kidney failure, unspecified [facility] Diagnosis Other hydronephrosis- Primary -donor kidney transplant recipient Kidney replaced by transplant [facility]* Diagnosis Other hydronephrosis [facility]* Diagnosis 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) Encounter for screening for malignant neoplasm of prostate Special screening for malignant neoplasm of prostate [facility]* Diagnosis Abnormal blood chemistry- Primary Other abnormal blood chemistry Liver transplant recipient Kidney replaced by transplant Immunosuppressed status Unspecified disorder of immune mechanism Aftercare following organ transplant [facility]* Diagnosis Kidney replaced by transplant- Primary [facility]* Diagnosis Immunosuppressed status- Primary Unspecified disorder of immune mechanism Kidney replaced by transplant Aftercare following organ transplant High risk medication use Encounter for long-term (current) use of other medications Other general symptoms and signs Abnormal blood chemistry Other abnormal blood chemistry Hypertension secondary to other renal disorders [facility]* Diagnosis Histoplasmosis- Primary Histoplasmosis, unspecified without [...] Fever, unspecified [facility]* Diagnosis Bilateral lower extremity edema- Primary 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) Atherosclerosis 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) Atherosclerosis of aorta Obesity (BMI 30-39.9) DARLENE (obstructive sleep apnea) Obstructive sleep apnea (adult) (pediatric) Tremor Abnormal involuntary movements Immunocompromised (CMS/HCC) Unspecified immunity deficiency Primary hypertension (CMS/HCC) Unspecified essential hypertension Shortness of breath [facility] Diagnosis Pleural effusion on right- Primary [...] pre-operative examination documented [facility] encounter [facility]* Diagnosis Heart failure, diastolic, acute- Primary Acute diastolic heart failure [facility]* Diagnosis Liver lesion- Primary Other specified disorders of liver Liver transplant recipient High risk medication use Encounter for long-term (current) use of other medications Therapeutic drug monitoring Encounter for therapeutic drug monitoring Immunocompromised Unspecified immunity deficiency [facility]* Diagnosis Kidney replaced by transplant- Primary [facility]* Diagnosis DARLENE (obstructive sleep apnea)- Primary Obstructive sleep apnea (adult) (pediatric) Generalized anxiety disorder (CMS/HCC) Generalized anxiety disorder Class 1 obesity due to excess calories with body mass index (BMI) of 31.0 to 31.9 in adult, unspecified whether serious comorbidity present Kidney stones Calculus of kidney Tremor Abnormal involuntary movements Immunocompromised (CMS/HCC) Unspecified immunity deficiency S/P liver transplant ([facility]) Bilateral lower extremity edema- Primary 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) Atherosclerosis 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) Atherosclerosis of aorta Obesity (BMI 30-39.9) DARLENE (obstructive sleep apnea) Obstructive sleep apnea (adult) (pediatric) Tremor Abnormal involuntary movements Immunocompromised ([facility]) Unspecified immunity deficiency Primary hypertension (CMS/HCC) Unspecified [...] of urinary stream documented in [facility] encounter [facility]* Diagnosis DARLENE (obstructive sleep [...] of urinary stream documented in this encounter [facility]* Diagnosis Primary hypertension (CMS/HCC) [...] Calculus of kidney [facility]* Diagnosis Primary hypertension (CMS/HCC)- Primary [...] kidney Other polyneuropathy documented in this encounter [facility]* Diagnosis DARLENE (obstructive sleep [...] replaced by transplant documented in this encounter [facility]* Diagnosis DARLENE (obstructive sleep [...] Unspecified essential hypertension documented in this encounter [facility]* Diagnosis DARLENE (obstructive sleep [...] acid level- Primary documented in this encounter [facility]* Diagnosis DARLENE (obstructive sleep [...] by transplant [facility]* [...] Other polyneuropathy Other osteoporosis without current pathological fracture- Primary Organ transplant Unspecified organ or tissue replaced by transplant 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) Secondary hyperparathyroidism, non-renal Vitamin D deficiency Liver transplant status [facility] Narrative No data available for this section [facility] Hospital Discharge instructions Additional Instructions DISCHARGE INSTRUCTIONS [...] times daily if needed. - Office number [phone]. [facility] Work Phone: Progress note No data available for this section [facility] reason for referral (narrative)* Consultation (Routine) - New Request Specialty Diagnoses / Procedures Referred By Contac t Referred To Contact Interventional Radiology Diagnoses Hydronephrosis due to obstruction of ureteral orifice Daya Saldana MD [address] [place] [address] Referral ID Status Reason Start Date Expiration Date V isits Requested Visits Authorized [id number] New Request 05/18/2022 06/12/2023 1 1 * Radiology (Emergency) - New Request Specialty Diagnoses / Procedures Referred By Contac t Referred To Contact Procedures US RENAL TRANSPLANT SCAN Daya Saldana MD [address] [place] [address] Referral ID Status Reason Start Date Expiration Date V isits Requested Visits Authorized [id number] New Request 05/16/2022 06/10/2023 1 1 * Consultation (Routine) - New Request Specialty Diagnoses / Procedures Referred By Contac t Referred To Contact Urology Diagnoses FAYE (acute kidney injury) Ryan Yepez MD [address] [facility] [address] [place] [address] Referral ID Status Reason Start Date Expiration Date V isits Requested Visits Authorized [id number] New Request 05/16/2022 06/10/2023 1 1 * MRI/CAT Scan (Routine) - New Request Specialty Diagnoses / Procedures Referred By Contac t Referred To Contact Diagnoses FAYE (acute kidney injury) Procedures CT ABDOMEN/PELVIS WITHOUT CONTRAST CHG CT SCAN,ABDOMENT AND PELVIS,W/O CONTRAST Ryan Yepez MD [address] [facility] [address] [place] [address] Referral ID Status Reason Start Date Expiration Date V isits Requested Visits Authorized [id number] New Request 05/16/2022 06/10/2023 1 1 * (Routine) - Pending Review Specialty Diagnoses / Procedures Referred By Contac t Referred To Contact Procedures PLATELET MONITORING PER PROTOCOL Daya Saldana MD [address] [place] [address] Referral ID Status Reason Start Date Expiration Date V isits Requested Visits Authorized [id number] Pending Review 05/15/2022 06/09/2023 1 1 * (Routine) - Pending Review Specialty Diagnoses / Procedures Referred By Contac t Referred To Contact Procedures DVT/VTE RISK ASSESSMENT Daya Saldana MD [address] [place] [address] Referral ID Status Reason Start Date Expiration Date V isits Requested Visits Authorized [id number] Pending Review 05/15/2022 06/09/2023 1 1 * (Routine) Specialty Diagnoses / Procedures Referred By Contac t Referred To Contact Evan Bennett MD [address] [place] [address] Referral ID Status Reason Start Date Expiration Date Visits Re quested Visits Authorized * (Routine) Specialty Diagnoses / Procedures Referred By Contac t Referred To Contact Evan Bennett MD [address] [place] [phone] Referral ID Status Reason Start Date Expiration Date Visits Re quested Visits [facility]ized [facility] Consultation (Routine) - New Request Specialty Diagnoses / Procedures Referred By Contac t Referred To Contact Sleep Medicine Diagnoses Hypoxia Reese aSge MD [address] [place] [address] Referral ID Status Reason Start Date Expiration Date V isits Requested Visits Authorized [id number] New Request 09/10/2023 10/04/2024 1 1 * MRI/CAT Scan (Routine) - New Request Specialty Diagnoses / Procedures Referred By Contac t Referred To Contact Diagnoses Histoplasmosis Procedures CT CHEST WITHOUT CONTRAST CHG DIAGNOSTIC COMPUTED TOMOGRAPHY THORAX W/O CNTRST Reese Sage MD [address] [place] [address] Referral ID Status Reason Start Date Expiration Date V isits Requested Visits Authorized [id number] New Request 09/10/2023 10/04/2024 1 1 * Radiology (Routine) - New Request Specialty Diagnoses / Procedures Referred By Contac t Referred To Contact Procedures US RENAL TRANSPLANT SCAN Steve Munoz MBBS [address] [place] [address] Referral ID Status Reason Start Date Expiration Date V isits Requested Visits Authorized [id number] New Request 08/29/2023 09/22/2024 1 1 * (Routine) - New Request Specialty Diagnoses / Procedures Referred By Contac t Referred To Contact Procedures PLATELET MONITORING PER PROTOCOL Steve Munoz MBBS [address] [place] [address] Referral ID Status Reason Start Date Expiration Date V isits Requested Visits Authorized [id number] New Request 08/28/2023 09/21/2024 1 1 * (Routine) - New Request Specialty Diagnoses / Procedures Referred By Contac t Referred To Contact Procedures DVT/VTE RISK ASSESSMENT Steve Munoz MBBS [address] [place] [address] Referral ID Status Reason Start Date Expiration Date V isits Requested Visits Authorized [id number] New Request 08/28/2023 09/21/[address] [facility] for referral (narrative)* Consultation (Routine) - Pending Review Specialty Diagnoses / Procedures Referred By Contac t Referred To Contact Urology Diagnoses Decreased urine stream Procedures SC OFFICE/OUTPATIENT NEW HIGH MDM 60 MINUTES Zuly Bruno NP [address] [place] [address] Trace Gannon MD [address] [place] [address] Referral ID Status Reason Start Date Expiration Date Visits Requested Visits Authorized [id number] Pending Review Specialty Services Required 08/23/2024 02/19/2025 1 1 * Consultation (Routine) - Pending Review Specialty Diagnoses / Procedures Referred By Contac t Referred To Contact Gastroenterology Diagnoses Gastroesophageal reflux disease, unspecified whether esophagitis present Abdominal pain, generalized Other constipation Procedures SC OFFICE/OUTPATIENT NEW HIGH MDM 60 MINUTES Zuly Bruno NP [address] [place] [address] Alaina Mclaughlin DO [address] [place] [address] Referral ID Status Reason Start Date Expiration Date Visits Requested Visits Authorized [id number] Pending Review Specialty Services Required 08/23/2024 02/19/2025 1 1 * (Routine) - Authorized Specialty Diagnoses / Procedures Referred By Contac t Referred To Contact Radiology Diagnoses Left carotid bruit Mixed hyperlipidemia (CMS/HCC) Procedures Vascular US carotid artery duplex bilateral Zuly Bruno NP [address] [place] [address] Referral ID Status Reason Start Date Expiration Date V isits Requested Visits Authorized [id number] Authorized 08/23/2024 02/19/2025 1 1 [facility] Instructions * Patient Instructions - Christin Elizabeth APRN-BIOMASS PLANT TECHNICIAN - 10/19/2018 9:21 AM EST You should take an extra dose of the lactulose as needed so that you are having 3-4 bowel movementsdaily. You should start the chemical dependency counseling as soon as possible. If you have questions, call the transplant health and social care teacher Melania Pierson. in this encounter* Patient Instructions - Sophie Cary, SAMI - 10/12/2018 11:09 AM EST You have been seen in the pre-transplant evaluation clinic by Dr. Restrepo and Sophie Cary. Sophie Cary is your pre-home coordinator she can be reached at [phone] at any time for questions during the pre-transplant process. Your evaluation is complete pendin. Abdominal ultrasound. 2. 6 minute walk test. 3. Cardiology evaluation. Additionally, your flexographic printing press operator will recommend testing to screen for coronary artery disease. This will be scheduled for you after your cardiology visit. 4. Your coordinator will be requesting record from your last dental visit, colonoscopy and EGD. 5. Please work to complete social work recommendations. Your health and social care teacher will be contacting you to follow up on your progress. 6. You have also been referred for a kidney transplant. An appointment will be scheduled for you sari evaluated in the kidney transplant clinic after you have satisfied requirements dictated by [employer]. Once your testing is complete, we [...] ___ Other Name MRN * Christin Elizabeth, ADDICTION SOCIAL WORKER-BIOMASS PLANT TECHNICIAN - 10/19/2018 9:00 AM EST Formatting of this note may be different from the original. History of Present Illness: Chief Complaint Patient presents with Follow-up Cirrhosis George Styles is a 48 y.o. male who presents to the [facility] Gastroenter[facility] Clinic today regarding his diagnosis/chief complaint(s) of Cirrhosis secondary to ETOH, with ESRD follows with Dr. Orr. Currently undergoing evaluation for liver/kidney transplant. Has been seen in transplant clinic for eval. Still undergoing pre testing. Diagnosed in April 2018. Last drink was immediately prior to hospital admission in [place] for ACLF. Hospital course notable for ARF [...] kidney transplant evaluation. Pt was AOx3. Transplant Drapery Seamstress role/function was explained and reviewed. The patient [...] resources were offered. Pt identifies with [employer] yazdanism. Pt confirms being a [place] Citizen. Pt.'s primary language is Grenadian. Pt confirms the ability to read,write, and understand Grenadian. Pt denies potential donors. Donor cards and [...] has valid license, does not regularly drive ([facility] recommends that he not to drive). [...] diagnosed with organ related disease etoh cirrohosis Armida dx in [facility] for thirty days. Pt [...] as well as referred him to pre home coordinator. Pt and support demonstrated moderate understanding [...] Patient's brother David is a self employed logging contractor. Additional support includes his other brother Tyshawn and his Mary live fifteen minutes away. Of note Mary is a track grinder for a [employer] is available to assist pediatrician managing partner. He confirms being comfortable asking for help. [...] in 2010, he was employed by the [employer]. He has access to SSDI payment (SSDI [...] court ordered treatment after a DUI charge [facility] in [place], court ordered treatment in 2001 and in [...] by patient from his primary medical provider- [facility] patient was noted as attending [...] He was provided with local AOD resources, [facility] AOD informational packet. Pt was referred [...] new visit Date of service: 10/12/2018 -Referring medical assistant cardiology for today's consult: -Primary Care Provider: Zuly Bruno CC: Chief Complaint Patient presents with Liver Recipient Evaluation History of Present Illness George Styles is a 48 y.o. male who presents to the [facility] liver [facility] surgery clinic today for evaluation [...] processes progressing rapidly Unknown * Elisa Tiwari, HEALTH SERVICES DIRECTOR - 10/12/2018 10:00 AM EST Timed up and go 9.9 seconds Manifest Clerk Left 52.8 pounds Right 44.9 pounds Waist circ 38.5 inches * Sophie Cary, SAMI - 10/12/2018 10:00 AM EST Formatting of this note may be different from the original. Patient George Styles ([id number]), accompanied by his brother, was seen on [...] if there are any further questions. Sophie UGERINN, RN Liver Precast Concrete Products Installer Etiology: ETOH HCC: No ETOH: Yes [...] Orr MD [address] [address] Status Reason Specialty Diagnoses / Procedures Referred By Contact Referred To Contact New Request Diagnoses Cirrhosis of liver with ascites, unspecified hepatic cirrhosis type Procedures US ABDOMEN RUQ/LIVER/GB Yovani Orr MD [address] [address] Specialty Diagnoses / Procedures Referred By Contac t Referred To Contact Diagnoses FAYE (acute kidney injury) Procedures CT ABDOMEN/PELVIS WITHOUT CONTRAST CHG CT SCAN,ABDOMENT AND PELVIS,W/O CONTRAST Central Scheduling [address] [place] [phone] Referral ID Status Reason Start Date Expiration Date V isits Requested Visits Authorized [id number] Pending Review 05/16/2022 06/10/2023 1 1 Specialty Diagnoses / Procedures Referred By Contac t Referred To Contact Diagnoses Other hydronephrosis Procedures FLUORO IMAGING FOR UROLOGY Ryan Yepez MD [address] [facility] [address] [place] [address] Referral ID Status Reason Start Date Expiration Date V isits Requested Visits Authorized [id number] New Request 07/07/2022 08/01/2023 1 1 Specialty Diagnoses / Procedures Referred By Contac t Referred To Contact Procedures DIRECT ADMIT REQUEST Steve Munoz MBBS [address] [place] [address] Referral ID Status Reason Start Date Expiration Date V isits Requested Visits Authorized [id number] New Request 08/28/2023 09/21/2024 1 1 Specialty Diagnoses / Procedures Referred By Contac t Referred To Contact Radiology Diagnoses DARLENE (obstructive sleep apnea) Primary hypertension (CMS/HCC) Bilateral lower extremity edema Shortness of breath Procedures Echocardiogram 2D complete Aichholz, Zuly, BA [address] [place] [address] Referral ID Status Reason Start Date Expiration Date Visits Requested Visits Authorized [id number] Incomplete Perform Procedure 01/06/2024 07/04/2024 1 1 Specialty Diagnoses / Procedures Referred By Contac t Referred To Contact Procedures US IMAGING REGIONAL ANESTHESIA Kehinde Gutierrez MD [address] [place] [address] Referral ID Status Reason Start Date Expiration Date V isits Requested Visits Authorized [id number] New Request 01/22/2024 02/15/2025 1 1 Specialty Diagnoses / Procedures Referred By Contac t Referred To Contact Cardiovascular Medicine Diagnoses Heart failure, diastolic, acute Kelvin Smith MD, JOSHBS [address] [place] [address] Referral ID Status Reason Start Date Expiration Date V isits Requested Visits Authorized [id number] New Request 01/20/2024 02/13/2025 1 1 Specialty Diagnoses / Procedures Referred By Contac t Referred To Contact Procedures US ABDOMEN LIVER DOPPLER US ABDOMEN LIVER TRANSPLANT DOPPLER Timothy Joseph MD [address] [facility] [address] [place] [address] Referral ID Status Reason Start Date Expiration Date V isits Requested Visits Authorized [id number] New Request 01/16/2024 02/09/2025 1 1 Specialty Diagnoses / Procedures Referred By Contac t Referred To Contact Procedures DVT/VTE RISK ASSESSMENT Kelvin Smith MD, MBBS [address] [place] [address] Referral ID Status Reason Start Date Expiration Date V isits Requested Visits Authorized [id number] New Request 01/16/2024 02/09/2025 1 1 Specialty Diagnoses / Procedures Referred By Contac t Referred To Contact Procedures PLATELET MONITORING PER PROTOCOL Kelvin Smith MD, MBBS [address] [address] Referral ID Status Reason Start Date Expiration Date V isits Requested Visits Authorized [id number] New Request 01/16/2024 02/09/2025 1 1 Referral ID Status Reason Start Date Expiration Date V isits Requested Visits Authorized [id number] New Request 01/16/2024 02/09/2025 1 1 Specialty Diagnoses / Procedures Referred By Contac t Referred To Contact Procedures ECG Kelvin Smith MD, MBBS [address] [place] [address] Referral ID Status Reason Start Date Expiration Date V isits Requested Visits Authorized [id number] New Request 01/16/2024 02/09/2025 1 1 Specialty Diagnoses / Procedures Referred By Contac t Referred To Contact Diagnoses Liver lesion Procedures MRI ABDOMEN WITH AND WITHOUT CONTRAST CHG MRI ABDOMEN W/O & W/CONTRAST MATERIAL Daisha Max, DO [address] [place] [address] Referral ID Status Reason Start Date Expiration Date V isits Requested Visits Authorized [id number] New Request 06/17/2024 07/12/2025 1 1 Advance Directives No Advanced Directives Records FoundDocuments on File Type Date Recorded Patient Customer Experience Strategist Expl anation Advance Directives and Living Will Power of Manager Dairy Latest Code Status on File Code Status [...] Orr MD [address] [address] Status Reason Specialty Diagnoses / Procedures Referre d By Contact Referred To Contact Denied Diagnoses Alcoholic cirrhosis, unspecified whether ascites present Pre-transplant evaluation for liver transplant Procedures MRI ABDOMEN WITH CONTRAST SC MRI, ABDOMEN W/CONTRAST Yovani Orr MD [address] [address] Reason Comments Liver Recipient Evaluation Status Reason Specialty Diagnoses / Procedures Referred By Contact Referred To Contact New Request Transplant / Transplant Surgery Procedures PRE NEW PATIENT Yovani Orr MD [address] [address] Alfredito Restrepo MD [address] [place] [address] Reason Comments Reschedule Reason Comments Outside Medical Records Request Reason Comments Social Work Follow-up Reason Comments Kidney Stone Specialty Diagnoses / Procedures Referred By Deni edwards Referred To Contact Diagnoses Obstructing kidney stone, s/p kidney transplant 2019 Daya Saldana MD [address] [place] [address] [facility] [address] [place] [address] Referral ID Status Reason Start Date Expiration Date Visits Re quested Visits Authorized [id number] 1 1 Reason Comments Follow-up Reason Comments Kidney Recipient Follow-up Liver Recipient Follow-up Reason Comments Consult Reason Comments New Patient Hospital follow up Specialty Diagnoses / Procedures Referred By Contac t Referred To Contact Urology Diagnoses hosp fu with [address] prior Procedures NEW TO DOC/RET PATIENT Zuly Bruno, ROB [address] [place] [address] Ryan Yepez MD [address] [facility] [address] [place] [address] Referral ID Status Reason Start Date Expiration Date Visits Re quested Visits Authorized [id number] Closed 06/27/2022 07/22/2023 1 1 Specialty Diagnoses / Procedures Referred By Contac t Referred To Contact Diagnoses FAYE (acute kidney injury) Procedures CT ABDOMEN/PELVIS WITHOUT CONTRAST CHG CT SCAN,ABDOMENT AND PELVIS,W/O CONTRAST Central Scheduling [address] [place] [address] Referral ID Status Reason Start Date Expiration Date V isits Requested Visits Authorized [id number] Pending Review 05/16/2022 06/10/2023 1 1 Reason Comments Follow-up Specialty Diagnoses / Procedures Referred By Contac t Referred To Contact Urology Diagnoses 1 week fu post NT clamp Procedures RETURN PATIENT Zuly Bruno CNP [address] [place] [address] Ryan Yepez MD [address] [facility] [address] [place] [address] Referral ID Status Reason Start Date Expiration Date Visits Requested Visits Authorized [id number] Authorized - 07/07/2022 08/01/2023 2 2 Specialty Diagnoses / Procedures Referred By Contac t Referred To Contact Diagnoses Other hydronephrosis Procedures FLUORO IMAGING FOR UROLOGY Ryan Yepez MD [address] [facility] [address] [place] [address] Referral ID Status Reason Start Date Expiration Date V isits Requested Visits Authorized [id number] New Request 07/07/2022 08/01/2023 1 1 Specialty Diagnoses / Procedures Referred By Contac t Referred To Contact Urology Diagnoses 1 week fu post NT clamp Procedures RETURN PATIENT Lexieevi Zuly, BIOMASS PLANT TECHNICIAN [address] [place] [phone] Ryan Yepez MD [address] [facility] [address] [place] [address] Referral ID Status Reason Start Date Expiration Date Visits Re quested Visits Authorized [id number] Closed 07/07/2022 08/01/2023 2 2 Reason Comments Liver Recipient Follow-up Reason Comments Kidney Recipient Follow-up Reason Comments Kidney Recipient Follow-up Specialty Diagnoses / Procedures Referred By Contac t Referred To Contact Diagnoses Kidney replaced by transplant Steve Munoz MBBS [address] [place] [address] [facility] [address] [place] [address] Referral ID Status Reason Start Date Expiration Date Visits Re quested Visits Authorized [id number] 1 1 Specialty Diagnoses / Procedures Referred By Contac t Referred To Contact Diagnoses Pleural effusion on right PNEUMONIA- HX LIVER AND KIDNEY TRANSPLANT Reese Sage MD [address] [place] [address] [facility] [address] [place] [address] Referral ID Status Reason Start Date Expiration Date Visits Re quested Visits Authorized [id number] 1 1 Reason Comments New Patient Specialty Diagnoses / Procedures Referred By Contac t Referred To Contact Cardiovascular Medicine Diagnoses Heart failure, diastolic, acute Kelvin Smith MD, MBBS [address] [place] [address] Referral ID Status Reason Start Date Expiration Date Visits Requested Visits Authorized [id number] Authorized - 01/20/2024 02/13/2025 5 5 Reason Comments Liver Recipient Follow-up Reason Onset Date Comments Med Refill 10/01/2024 Reason Comments Med Refill Reason Onset Date Comments Med Refill 08/11/2024 Reason Comments Hypertension Reason Onset Date Comments Med Refill 01/05/2025 Reason Onset Date Comments Med Refill 02/01/2025 Reason Comments Osteoporosis NEW REF/DEXA SCAN Specialty Diagnoses / Procedures Referred By Deni t Referred To Contact Endocrinology Diagnoses Other osteoporosis without current pathological fracture Liver transplant status Organ transplant Procedures SC OFFICE/OUTPATIENT NEW HIGH MDM 60 MINUTES Zuly Bruno NP [address] [place] [address] Phone: tel: fax: Tony Hernandez MD [address] [place] [address] Phone: tel: fax: Referral ID Status Reason Start Date Expiration Date V isits Requested Visits Authorized [id number] Closed Specialty Services Required 01/13/2025 07/12/2025 1 1 Reason Comments Follow-up Osteoporosis LAB (unrecognized sect ion and content) No Status Records FoundNo Status Records FoundNo Status Records FoundNo Status Records FoundNo Status Records FoundNo Status Records FoundNo Status Records FoundNo Status Records Found INFORMATION SOURCE (unrecogn ized section and content) DATE CREATED AUTHOR 01/07/2020 [facility] DATE CREATED AUTHOR AUTHOR'S ORGANIZ ATION 01/27/2021 [facility] DATE CREATED AUTHOR AUTHOR'S ORGANIZ ATION 05/11/2023 [facility] DATE CREATED AUTHOR AUTHOR'S ORGANIZ ATION 01/05/2025 [facility] DATE CREATED AUTHOR AUTHOR'S ORGANIZ ATION 03/22/2025 [facility] EPIC DATE CREATED AUTHOR AUTHOR'S ORGANIZ ATION 03/25/2025 [facility] DATE CREATED AUTHOR AUTHOR'S ORGANIZ ATION 03/26/2025 [facility] DATE CREATED AUTHOR AUTHOR'S ORGANIZ ATION 04/29/2025 [facility] Care Teams (unrecognized sec tion and content) Shank Skinner Relationship Specialty Start Date End Date Zuly Bruno CNP PCP - General 07/19/18 Comfort Rivera, [facility] [address] [facility] [address] [place] [address] Pharmacist Pharmacist 05/16/20 Angel Carpio RP,PharmD Pharmacist Pharmacist 05/16/20 Te Leigh RP,PharmD Pharmacist Pharmacist 01/09/21 Shank Skinner Relationship Specialty Start Date End Date Zuly Bruno CNP PCP - General 07/19/18 Comfort Rivera, [facility] [address] [facility] [address] [place] [address] Pharmacist Pharmacist 05/16/20 Angel Carpio RP,PharmD Pharmacist Pharmacist 05/16/20 Te Leigh RP,PharmD Pharmacist Pharmacist 01/09/21 Shank Skinner Relationship Specialty Start Date End Date Zuly Bruno CNP PCP - General 07/19/18 Shank Skinner Relationship Specialty Start Date End Date Zuly Bruno CNP PCP - General 07/19/18 Shank Skinner Relationship Specialty Start Date End Date Zuly Bruno CNP PCP - General 07/19/18 Shank Skinner Relationship Specialty Start Date End Date Zuly Bruno CNP PCP - General 07/19/18 Shank Skinner Relationship Specialty Start Date End Date Zuly Bruno CNP PCP - General 07/19/18 Shank Skinner Relationship Specialty Start Date End Date Zuly Bruno CNP PCP - General 07/19/18 Shank Skinner Relationship Specialty Start Date End Date Zuly Bruno CNP PCP - General 07/19/18 Shank Skinner Relationship Specialty Start Date End Date Zuly Bruno CNP PCP - General 07/19/18 Shank Skinner Relationship Specialty Start Date End Date Zuly Bruno CNP PCP - General 07/19/18 Shank Skinner Relationship Specialty Start Date End Date Zuly Bruno CNP PCP - General 07/19/18 Shank Skinner Relationship Specialty Start Date End Date Zuly Bruno CNP PCP - General 07/19/18 Shank Skinner Relationship Specialty Start Date End Date Zuly Bruno CNP PCP - General 07/19/18 Shank Skinner Relationship Specialty Start Date End Date Zuly Bruno CNP PCP - General 07/19/18 Shank Skinner Relationship Specialty Start Date End Date BrianlatishaZuly tipton CNP PCP - General 07/19/18 Shank Skinner Relationship Specialty Start Date End Date BrianlatishaZuly tipton CNP PCP - General 07/19/18 Evan White DO [address] [place] [address] Infectious Disease Infectious Disease 09/09/23 Shank Skinner Relationship Specialty Start Date End Date Zuly Bruno CNP PCP - General 07/19/18 Evan White DO [address] [place] [address] Infectious Disease Infectious Disease 09/09/23 Shank Skinner Relationship Specialty Start Date End Date Zuly Bruno CNP PCP - General 07/19/18 Evan White DO [address] [place] [address] Infectious Disease Infectious Disease 09/09/23 Shank Skinner Relationship Specialty Start Date End Date Momo Verdugo MD PCP - General Family Medicine 05/21/23 Shank Skinner Relationship Specialty Start Date End Date Momo Verdugo MD PCP - General Family Medicine 05/21/23 Shank Skinner Relationship Specialty Start Date End Date Momo Verdugo MD PCP - General Family Medicine 05/21/23 Shank Skinner Relationship Specialty Start Date End Date Zuly Bruno CNP PCP - General 07/19/18 Evan White DO [address] [place] [address] Infectious Disease Infectious Disease 09/09/23 Shank Skinner Relationship Specialty Start Date End Date Zuly Bruno CNP PCP - General 07/19/18 Evan White DO [address] [place] [address] Infectious Disease Infectious Disease 09/09/23 Shank Skinner Relationship Specialty Start Date End Date Zuly Bruno CNP PCP - General 07/19/18 Evan White DO [address] [place] [address] Infectious Disease Infectious Disease 09/09/23 Shank Skinner Relationship Specialty Start Date End Date Zuly Bruno CNP PCP - General 07/19/18 Evan White DO [address] [place] [address] Infectious Disease Infectious Disease 09/09/23 Shank Skinner Relationship Specialty Start Date End Date Zuly Bruno CNP PCP - General 07/19/18 Evan White DO [address] [place] [address] Infectious Disease Infectious Disease 09/09/23 Shank Skinner Relationship Specialty Start Date End Date Zuly Bruno CNP PCP - General 07/19/18 Shank Skinner Relationship Specialty Start Date End Date Zuly Bruno CNP PCP - General 07/19/18 Shank Skinner Relationship Specialty Start Date End Date Zuly Bruno CNP PCP - General 07/19/18 Shank Skinner Relationship Specialty Start Date End Date Zuly Bruno CNP PCP - General 07/19/18 Shank Skinner Relationship Specialty Start Date End Date Zuly Bruno CNP PCP - General 07/19/18 Shank Skinner Relationship Specialty Start Date End Date Zuly Bruno CNP PCP - General 07/19/18 Shank Skinner Relationship Specialty Start Date End Date Zuly Bruno CNP PCP - General 07/19/18 Shank Skinner Relationship Specialty Start Date End Date Momo Verdugo MD [address] [place] [place] [address] PCP - General Family Medicine 02/11/24 Zuly Bruno NP [address] [place] [address] Nurse Practitioner Family Medicine 02/11/24 Kasandra Thomas DO [address] [place] [address] Referring Physician Neurology 02/17/24 Shank Skinner Relationship Specialty Start Date End Date Momo Verdugo MD [address] [place] [address] PCP - General Family Medicine 02/11/24 Zuly Bruno NP [address] [place] [address] Nurse Practitioner Family Medicine 02/11/24 Kasandra Thomas DO [address] [place] [address] Referring Physician Neurology 02/17/24 Shank Skinner Relationship Specialty Start Date End Date Momo Verdugo MD [address] [place] [address] PCP - General Family Medicine 02/11/24 Zuly Bruno, BA [address] [place] [address] Nurse Practitioner Family Medicine 02/11/24 Kasandra Thomas DO [address] [place] [address] Referring Physician Neurology 02/17/24 Shank Skinner Relationship Specialty Start Date End Date Momo Verdugo MD [address] [place] [address] PCP - General Family Medicine 02/11/24 Zuly Bruno NP [address] [place] [address] Nurse Practitioner Family Medicine 02/11/24 Kasandra Thomas DO [address] [place], [place] [address] Referring Physician Neurology 02/17/24 Shank Skinner Relationship Specialty Start Date End Date Momo Verdugo MD [address] [place] [address] PCP - General Family Medicine 02/11/24 Zuly Bruno NP [address] [place] [address] Nurse Practitioner Family Medicine 02/11/24 Kasandra Thomas DO [address], [place] [address] Referring Physician Neurology 02/17/24 Shank Skinner Relationship Specialty Start Date End Date Momo Verdugo MD [address] [place] [address] PCP - General Family Medicine 02/11/24 Zuly Bruno NP [address] [place] [address] Nurse Practitioner Family Medicine 02/11/24 Kasandra Thomas DO [address] [place] [address] Referring Physician Neurology 02/17/24 Shank Skinner Relationship Specialty Start Date End Date Momo Verdugo MD [address] [place] [address] PCP - General Family Medicine 02/11/24 Zuly Bruno NP [address] [place] [address] Nurse Practitioner Family Medicine 02/11/24 Kasandra Thomas DO [address] [place] [address] Referring Physician Neurology 02/17/24 Shank Skinner Relationship Specialty Start Date End Date Momo Verdugo MD [address] [place] [address] PCP - General Family Medicine 02/11/24 Zuly Bruno NP [address] [place] [address] Nurse Practitioner Family Medicine 02/11/24 Kasandra Thomas DO [address] [place] [address] Referring Physician Neurology 02/17/24 Shank Skinner Relationship Specialty Start Date End Date Momo Verdugo MD [address] [place] [address] PCP - General Family Medicine 02/11/24 Zuly Bruno NP [address] [place] [address] Nurse Practitioner Family Medicine 02/11/24 Kasandra Thomas DO [address] [place] [address] Referring Physician Neurology 02/17/24 Shank Skinner Relationship Specialty Start Date End Date Momo Verdugo MD [address] [place] [address] PCP - General Family Medicine 02/11/24 Zuly Bruno NP [address] [place] [address] Nurse Practitioner Family Medicine 02/11/24 Kasandra Thomas DO [address] [place] [address] Referring Physician Neurology 02/17/24 Shank Skinner Relationship Specialty Start Date End Date Momo Verdugo MD [address] [place] [address] PCP - General Family Medicine 02/11/24 Zuly Bruno NP [address] [place] [address] Nurse Practitioner Family Medicine 02/11/24 Kasandra Thomas DO [address] [place] [address] Referring Physician Neurology 02/17/24 Team Status: Active [...] Active Member Role Status Dates Zuly Mejias Lexietamekasaeed Primary Care Provider Active Sta rt: December 26, 2024 Yoselyn Goins MD Attending Provider, Other Provider Active Start: December 26, 2024 Shank Skinner Relationship Specialty Start Date End Date Momo Verdugo MD [address] [place] [address] PCP - General Family Medicine 02/11/24 Zuly Bruno NP [address] [place] [address] Nurse Practitioner Family Medicine 02/11/24 Kasandra Thomas DO [address] [place] [address] Referring Physician Neurology 02/17/24 Shank Skinner Relationship Specialty Start Date End Date Momo Verdugo MD [address] [place] [address] PCP - General Family Medicine 02/11/24 Zuly Bruno NP [address] [place] [address] Nurse Practitioner Family Medicine 02/11/24 Kasandra Thomas DO [address] [place] [address] Referring Physician Neurology 02/17/24 Shank Skinner Relationship Specialty Start Date End Date Momo Verdugo MD [address] [place] [address] PCP - General Family Medicine 02/11/24 Zuly Bruno NP [address] [place] [address] Nurse Practitioner Family Medicine 02/11/24 Kasandra Thomas DO [address] [place] [address] Referring Physician Neurology 02/17/24 Shank Skinner Relationship Specialty Start Date End Date Momo Verdugo MD [address] [place] [address] PCP - General Family Medicine 02/11/24 Zuly Bruno NP [address] [place] [address] Nurse Practitioner Family Medicine 02/11/24 Kasandra Thomas DO [address] [place] [address] Referring Physician Neurology 02/17/24 Shank Skinner Relationship Specialty Start Date End Date Momo Verdugo MD [address] [place] [address] PCP - General Family Medicine 02/11/24 Zuly Bruno NP [address] [place] [address] Nurse Practitioner Family Medicine 02/11/24 Kasandra Thomas DO [address] [place] [address] Referring Physician Neurology 02/17/24 Shank Skinner Relationship Specialty Start Date End Date Momo Verdugo MD [address] [place] [address] PCP - General Family Medicine 02/11/24 Zuly Bruno NP [address] [place] [address] Nurse Practitioner Family Medicine 02/11/24 Kasandra Thomas DO [address] [place] [address] Referring Physician Neurology 02/17/24 Shank Skinner Relationship Specialty Start Date End Date Momo Verdugo MD [address] [place] [address] PCP - General Family Medicine 02/11/24 Zuly Bruno, BA [address] [place] [address] Nurse Practitioner Family Medicine 02/11/24 Kasandra Thomas DO [address] [place] [address] Referring Physician Neurology 02/17/24 Shank Skinner Relationship Specialty Start Date End Date Momo Verdugo MD [address] [place] [address] PCP - General Family Medicine 02/11/24 Momo Verdugo MD [address] [place] [address] PCP - [employer] 12/31/24 Zuly Bruno NP [address] [place] [address] Nurse Practitioner Family Medicine 02/11/24 Kasandra Thomas DO [address] [place], [place] [address] Referring Physician Neurology 02/17/24 Shank Skinner Relationship Specialty Start Date End Date Momo Verdugo MD [address] [place] [address] PCP - General Family Medicine 02/11/24 Momo Verdugo MD [address] [place] [address] PCP - [employer] 12/31/24 Zuly Bruno NP [address] [place] [address] Nurse Practitioner Family Medicine 02/11/24 Kasandra Thomas DO [address] [place], [place] [address] Referring Physician Neurology 02/17/24 Scheduled Active and [...] Mel Hampton RN)2131 (Given - Provider: Carolyn Isaac, SAMI) 0804 (Given - Provider: Josey Braun RN)1754 [...] today) 0931 (Given - Provider: Leon Cook, RN)2100 [...] Provider: Carolyn Isaac RN)1737 (Paused - Provider: Carolny Isaac RN)1807 (Restarted - Provider: Carolyn Isaac, SAMI)1822 (Paused - Provider: Carolyn Isaac RN)1823 (Restarted - Provider: Carolyn Isaac RN)1924 (Rate/Dose Verify - Provider: Carolyn Isaac RN) [...] 05/15/22 at 2209, Until 05/20/22 at 2110, Sore Throat, Max 8 [...] Starting on Marta 05/15/22 at 2206, Until e 05/20/22 at 2110, Insomnia ondansetron (ZOFRAN) tablet 4 [...] dose on 01/16/24 at 0900, Until Discontinued 841 (Given - Provider: Erica Gudino RN)1619 (Given [...] - Reason: Transfer to a Procedural area)1414 ([facility] Unhold - Provider: Automatic Transfer) tacrolimus (PROGRAF) susp 0.2 mg 0.2 mg, Oral, CUSTOM FREQUENCY (Once per day on Thursday), First dose on 01/16/24 at 0900, Until Discontinued, Caution check route of administration. For sublingual administration, place liquid under tongue and allow absorption. 0842 (Given - Provider: Erica Gudino RN) 1053 ([facility] Hold - Provider: Automatic Transfer - Reason: Transfer to a Procedural area)141 ([facility] Unhold - Provider: Automatic Transfer) 09 (Given - Provider: Terra Heart RN) Tamsulosin HCl (FLOMAX) capsule 0.4 mg 0.4 mg, Oral, DAILY, First dose on 01/16/24 at 0900, Until Discontinued, Slow release product. Do not chew or crush 0842 (Given - Provider: Erica Gudino RN) 0841 (Given - Provider: Terra Heart RN)105 ([facility] Hold - Provider: Automatic Transfer - Reason: Transfer to a Procedural area)141 ([facility] Unhold - Provider: Automatic Transfer) [...] 0841 (Given - Provider: Terra Heart RN)105 ([facility] Hold - Provider: Automatic Transfer - Reason: Transfer to a Procedural area)141 ([facility] Unhold - Provider: Automatic Transfer) 09 (Given - Provider: Terra Heart RN) PRN Medication Order 01/21/2024 01/22/2024 01/23/2024 Acetaminophen (TYLENOL) tablet 650 mg 650 mg, Oral, EVERY 6 HOURS NEEDED, Starting on 01/16/24 at 0202, Until 01/23/24 at 1752, Mild Pain, Moderate Pain, Severe Pain, Oral temp > 101.5 F, 1st line for Pain, Maximum dose of acetaminophen is 4000 mg from all sources in 24 hours. 1053 ([facility] Hold - Provider: Automatic Transfer - Reason: Transfer to a Procedural area)1414 ([facility] Unhold - Provider: Automatic Transfer)1806 [...] 200-200 mg and Simethicone 20 mg) 1053 ([facility] Hold - Provider: Automatic Transfer - Reason: Transfer to a Procedural area)1414 ([facility] Unhold - Provider: Automatic Transfer) guaiFENesin (ROBITUSSIN) oral solution 400 mg 400 mg, Oral, EVERY 6 HOURS NEEDED, Starting on 01/16/24 at 0202, Until 01/23/24 at 1752, Cough, Congestion 1053 ([facility] Hold - Provider: Automatic Transfer - Reason: Transfer to a Procedural area)1414 ([facility] Unhold - Provider: Automatic Transfer) [...] 0016, Until 01/23/24 at 1752, Insomnia 1053 ([facility] Hold - Provider: Automatic Transfer - Reason: Transfer to a Procedural area)1414 ([facility] Unhold - Provider: Automatic Transfer)2355 (Given - Provider: Tati Ahmadi, SAMI) Ondansetron (ZOFRAN) tablet 4 mg(Linked Group 1) 4 mg, Oral, EVERY 6 HOURS NEEDED, Starting on 01/16/24 at 0202, Until 01/23/24 at 1752, Nausea / Vomiting, 1st line for Nausea/Vomiting 1053 ([facility] Hold - Provider: Automatic Transfer - Reason: Transfer to a Procedural area)1414 ([facility] Unhold - Provider: Automatic Transfer)1809 (See Alternative - Provider: Terra Heart RN) 0430 (See Alternative - Provider: Tati Ahmadi, SAMI)1415 (Given - Provider: Terra Heart, SAMI) Ondansetron 4mg/2ml (ZOFRAN) injection 4 mg(Linked Group 1) 4 mg, Intravenous, EVERY 6 HOURS NEEDED, Starting on 01/16/24 at 0202, Until 01/23/24 at 1752, Nausea / Vomiting, 1st line for Nausea/Vomiting 1053 ([facility] Hold - Provider: Automatic Transfer - Reason: Transfer to a Procedural area)1414 ([facility] Unhold - Provider: Automatic Transfer)1809 [...] - Reason: Transfer to a Procedural area)1414 ([facility] Unhold - Provider: Automatic Transfer) Prochlorperazine (COMPAZINE) injection 10 mg 10 mg, Intravenous, EVERY 6 HOURS NEEDED, Starting on 01/17/24 at 1538, Until 01/23/24 at 1752, Nausea / Vomiting, Refractory Nausea Vomiting, For IV route: dilute dose with 10mL normal saline and give by slow IV push at a rate of 5mg/min. Maximum of 40mg/day. 1053 ([facility] Hold - Provider: Automatic Transfer - Reason: Transfer to a Procedural area)1414 ([facility] Unhold - Provider: Automatic Transfer)2349 [...] the intermittent or piggy back medication. 1053 ([facility] Hold - Provider: Automatic Transfer - Reason: Transfer to a Procedural area)1414 ([facility] Unhold - Provider: Automatic Transfer) [...] BE BASED ON THE PRIMARY CLINICAL RECORDS. [employer] [facility]. provides no warranty or guarantee of the accuracy or completeness of information in this document.
[2025-05-02 07:29] LABS: Basophils Percent Auto 0.6 % (0.2-2.0); Eosinophils Absolute Auto 0.2 10^3/uL (0.0-0.7); Eosinophils Percent Auto 3.2 % (0.9-7.0); Hematocrit 46.3 % (42.0-54.0); Hemoglobin 15.8 g/dL (14.0-18.0); Immature Granulocytes Abs Auto 0.01 10^3/uL (0.00-0.03); Immature Granulocytes Pct Auto 0.2 % (0.0-0.5); Lymphocytes Absolute Auto 1.4 10^3/uL (1.2-3.8); Mean Corpuscular HGB Conc 34.1 g/dL (29.9-35.2); Mean Corpuscular Hemoglobin 29.6 pg (25.9-34.0); Mean Corpuscular Volume 86.9 fL (80.0-94.0); Mean Platelet Volume 9.8 fL (9.5-13.5); Monocytes Absolute Auto 0.5 10^3/uL (0.3-0.8); Monocytes Percent Auto 10.6 % (1.7-12.0); Neutrophils Absolute Auto 2.5 10^3/uL (1.4-6.5); Neutrophils Percent Auto 54.4 % (43.0-75.0); Platelet Count 219 10^3/uL (150-450); Red Blood Count 5.33 10^6/uL (4.70-6.10); Red Cell Distribution Width 12.5 % (11.0-15.0); White Blood Count 4.6 10^3/uL (4.0-11.0)
[2025-05-02 08:11] LABS: Alanine Aminotransferase 33 U/L (16-63); Albumin Globulin Ratio 1.2; Albumin Level 4.3 g/dL (3.4-5.0); Alkaline Phosphatase 102 U/L (46-116); Anion Gap 15.7; Aspartate Amino Transferase 26 U/L (15-37); BUN Creatinine Ratio 12.9; Bilirubin Direct 0.3 mg/dL (0.0-0.2); Bilirubin Total 1.5 mg/dL (0.2-1.0); Calcium 9.6 mg/dL (8.5-10.1); Carbon Dioxide 25.8 mmol/L (21.0-32.0); Chloride 106 mmol/L (98-107); Estimated GFR (African America >60 (>=60 mL/min/1.73m^2); Estimated GFR (Non-African Ame >60 (>=60 mL/min/1.73m^2); Globulin 3.5 g/dL; Glucose 128 mg/dL (74-106); Magnesium 1.9 mg/dL (1.8-2.4); Phosphorus 2.6 mg/dL (2.6-4.7); Potassium 3.5 mmol/L (3.5-5.1); Sodium 144 mmol/L (136-145); Total Protein 7.8 g/dL (6.4-8.2)
[2025-05-04 19:08] LABS: Tacrolimus (FK506), Blood 5.1 ng/mL (5.0-20.0)
== END 2025-05-02 06:30 | disposition home or self-care (01) ==
PROVIDERS: PCP Nurse Practitioner
DX: Z79.899 Other long term (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 (principal); Z94.4 Liver transplant status; Z48.298 Encounter for aftercare following other organ transplant; Z51.81 Encounter for therapeutic drug level monitoring
CPT/HCPCS: 36415; 80048; 80076; 80197; 83735; 84100; 85025

== ENCOUNTER 2025-07-05 06:40 | Outpatient (OUT) | payer MEDICARE, SELFPAY ==
[2025-07-05 07:38] LABS: Hematocrit 45.9 % (42.0-54.0); Hemoglobin 15.7 g/dL (14.0-18.0); Immature Granulocytes Abs Auto 0.01 10^3/uL (0.00-0.03); Immature Granulocytes Pct Auto 0.2 % (0.0-0.5); Lymphocytes Absolute Auto 1.7 10^3/uL (1.2-3.8); Mean Corpuscular HGB Conc 34.2 g/dL (29.9-35.2); Mean Corpuscular Hemoglobin 29.4 pg (25.9-34.0); Mean Corpuscular Volume 86.0 fL (80.0-94.0); Platelet Count 228 10^3/uL (150-450); Red Blood Count 5.34 10^6/uL (4.70-6.10); White Blood Count 5.1 10^3/uL (4.0-11.0)
[2025-07-05 07:50] LABS: Magnesium 1.8 mg/dL (1.8-2.4)
[2025-07-05 10:33] LABS: Alanine Aminotransferase 33 U/L (16-63); Albumin Level 4.0 g/dL (3.4-5.0); Alkaline Phosphatase 114 U/L (46-116); Anion Gap 10.5; Aspartate Amino Transferase 20 U/L (15-37); Blood Urea Nitrogen 21.0 mg/dL (7.0-18.0); Calcium 9.5 mg/dL (8.5-10.1); Carbon Dioxide 28.1 mmol/L (21.0-32.0); Chloride 106 mmol/L (98-107); Estimated GFR (African America >60 (>=60 mL/min/1.73m^2); Estimated GFR (Non-African Ame >60 (>=60 mL/min/1.73m^2); Gamma Glutamyl Transpeptidase 21 U/L (15-85); Glucose 118 mg/dL (74-106); Potassium 3.6 mmol/L (3.5-5.1); Sodium 141 mmol/L (136-145)
[2025-07-08 17:08] LABS: Tacrolimus (FK506), Blood 5.2 ng/mL (5.0-20.0)
== END 2025-07-05 06:41 | disposition home or self-care (01) ==
PROVIDERS: PCP Nurse Practitioner
DX: Z79.899 Other long term (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 (principal); Z94.4 Liver transplant status; Z48.298 Encounter for aftercare following other organ transplant; Z51.81 Encounter for therapeutic drug level monitoring
CPT/HCPCS: 36415; 80048; 80197; 82042; 82247; 82248; 82977; 83735; 84075; 84100; 84450; 84460; 85025

== ENCOUNTER 2025-09-13 06:43 | Outpatient (OUT) | payer MEDICARE, SELFPAY ==
--- OUTSIDE RECORDS SUMMARY | 2025-09-13 06:50 | XMS_ITS | CCD ---
Author Organization [facility] Care Team Providers Care Senior Engineering Manager Name Role Phone Kiana Zuly Unavailable [...] Care Unavailable Aichholz [facility] Primary Care Provider Miguel RPComfort Unavailable [phone] Shirin [facility],PharmD, Angel Unavailable Unavailab makayla Leigh [facility],PharmD, Te Unavailable Unavai lable Aicholz [facility] Provider [phone] CHANDUC, DR BURCH Admitting Unavailable MISC, DR BURCH Consulting Unavailable AICHHOLZ, PROTECTIVE SIGNAL SUPERINTENDENT ZULY Primary Care Unavailable MISC, DR BURCH Attending Unavailable MISC, DR BURCH Admitting Unavailable MISC, DR BURCH Consulting Unavailable AICHHOLZ, PROTECTIVE SIGNAL SUPERINTENDENT ZULY Primary Care Unavailable MISC, DR BURCH Attending Unavailable ARCELIA PIZARRO Consulting Unavailable KE BURNHAM Attending Unavailable KE BURNHAM Admitting Unavailable BARBARA, DR MÓNICA Munoz Consulting Unavailable AICHHOLZ, PROTECTIVE SIGNAL SUPERINTENDENT ZULY Primary Care Unavailable KE BURNHAM Consulting Unavailable MISC, DR BURCH Consulting Unavailable MISC, DR BURCH Attending Unavailable AICHHOLZ, PROTECTIVE SIGNAL SUPERINTENDENT ZULY Primary Care Unavailable MISC, DR BURCH Admitting Unavailable MISC, DR BURCH Consulting Unavailable MISC, DR BURCH Attending Unavailable AICHHOLZ, PROTECTIVE SIGNAL SUPERINTENDENT ZULY Primary Care Unavailable MISC, DR BURCH Admitting Unavailable MISC, DR BURCH Consulting Unavailable AICHHOLZ, PROTECTIVE SIGNAL SUPERINTENDENT ZULY Primary Care Unavailable MISC, DOCTOR Admitting Unavailable MISC, DR DOCTOR Attending Unavailable MELINDA, DR GEORGE Munoz Consulting Unavailable MELINDA, DR GEORGE Munoz Attending Unavailable AICHHOLZ, PROTECTIVE SIGNAL SUPERINTENDENT ZULY Primary Care Unavailable MELINDA, DR GEORGE Munoz Admitting Unavailable NAUN ., KE Consulting Unavailable MIRANDA, LYNDSAY Consulting Unavailable MELINDA, DR GEORGE Munoz Consulting Unavailable NAUN ., KE Attending Unavailable NAUN ., KE Admitting Unavailable AICHHOLZ, PROTECTIVE SIGNAL SUPERINTENDENT ZULY Primary Care Unavailable NAUN ., KE Consulting Unavailable GIAN HERRING Consulting Unavailable AICHHOLZ, PROTECTIVE SIGNAL SUPERINTENDENT ZULY Consulting Unavailable AICHHOLZ, PROTECTIVE SIGNAL SUPERINTENDENT ZULY Attending Unavailable AICHHOLZ, PROTECTIVE SIGNAL SUPERINTENDENT ZULY Admitting Unavailable AICHHOLZ, PROTECTIVE SIGNAL SUPERINTENDENT ZULY Primary Care Unavailable MISC, DR DOCTOR Consulting Unavailable MISC, DOCTOR Admitting Unavailable MISC, DOCTOR Attending Unavailable AICHHOLZ, PROTECTIVE SIGNAL SUPERINTENDENT ZULY Primary Care Unavailable MISC, DR DOCTOR Consulting Unavailable MISC, DR DOCTOR Attending Unavailable MISC, DOCTOR Admitting Unavailable AICHHOLZ, PROTECTIVE SIGNAL SUPERINTENDENT ZULY Primary Care Unavailable MISC, DOCTOR Admitting Unavailable MISC, DOCTOR Consulting Unavailable MISC, DR DOCTOR Attending Unavailable AICHHOLZ, PROTECTIVE SIGNAL SUPERINTENDENT ZULY Primary Care Unavailable MISC, DOCTOR Admitting Unavailable MISC, DR DOCTOR Consulting Unavailable AICHHOLZ, PROTECTIVE SIGNAL SUPERINTENDENT ZULY Primary Care Unavailable MISC, DR DOCTOR Attending Unavailable MISC, DOCTOR Admitting Unavailable MISC, DOCTOR Consulting Unavailable AICHHOLZ, PROTECTIVE SIGNAL SUPERINTENDENT ZULY Primary Care Unavailable MISC, DR DOCTOR Attending Unavailable AICHHOLZ, PROTECTIVE SIGNAL SUPERINTENDENT ZULY Consulting Unavailable AICHHOLZ, PROTECTIVE SIGNAL SUPERINTENDENT ZULY Attending Unavailable AICHHOLZ, PROTECTIVE SIGNAL SUPERINTENDENT ZULY Admitting Unavailable AICHHOLZ, PROTECTIVE SIGNAL SUPERINTENDENT ZULY Primary Care Unavailable DR MÓNICA JIMENEZ Consulting Unavailable Aichholz [facility], Zuly Primary Care Provider Evan White DO Unavailable [facility], Zuly Primary Care Provider [phone] Tran White DOs A Unavailable Momo Verdugo MD Primary Care Provider AicZuly steve CNP Primary Care Provider [phone] ZULY BRUNO Primary Care Physician Momo Verdugo MD Primary Care Provider Kiana VOICER, Zuly Unavailable Kasandra Thomas DO Unavailable Zuly Bruno Primary Care Provider [phone] Briseida LUZ, Yoselyn Attending Provider Zuly Bruno Primary Care Unavailable Asaad, Imad Attending Unavailable Asaad, Imad Admitting Unavailable Momo Verdugo MD Unavailable Steph Almodovar Attending Unavailable Steph Almodovar Attending Unavailable Clementina Montesinos Attending Unavailable ZULY BRUNO Referring Unavailable Galpaulette, Clementina Mejias Attending Unavailable Galpaulette, Clementina Mejias Attending Unavailable Steph Almodovar Attending Unavailable ORLANDOUKAMIGUEL RAHMAN Attending Unavailable MOUKARBMIGUEL VILLAVICENCIO Attending Unavailable AICHHOLZ, ZULY Attending Unavailable MARYTONY RUBIO Attending Unavailable AICHHOLZ, ZULY Referring Unavailable MARY, AHMAJenna F Attending Unavailable AICHHOLZ, ZULY Attending Unavailable AICHHOLZ, ZULY Attending Unavailable AICHHOLZ, ZULY Attending Unavailable Aichholz VOICER, Zuly Unavailable Kiana VOICER-CZuly Primary Care Provider Kiana VOICER-CZuly Attending Provider REBECA GUTIERREZ Attending Unavailable SELF, SELF Referring Unavailable AICHHOLZ, ZULY Primary Care Unavailable SELF, SELF Referring Unavailable AICHHOLZ, ZULY Primary Care Unavailable EVAN WHITE Attending Unavailabl e Allergies Allergy Classification Reported Allergen(s) Allergy Type Date of Onset Reaction(s) Facility (3 sources) Shellfish; Translations: [SHELLFISH DERIVED] Propensity to adverse reactions (disorder) 8 [facility] (20 sources) Shellfish-Deriv ed Products Propensity to adverse reactions to drug [address] [facility] (5 sources) Shellfish; Translations: [shellfish] Drug allergy (disorder) Anaphylaxis (disorder) [facility] Medications Current Medications Medication Drug Class(es) Dates Sig (Normalized) Sig (Original) alendronic acid 70 mg oral tablet (10 sources) Bisphosphonate Start: 08-10-2025 take 1 tablet by mouth every week Alendronate 70 mg tablet Active 70 MG PO every week August 10, 2025 12:00am Complies with drug therapy Start: 03-21-2025 End: 09-05-2025 alendronate (Fosamax) 70 [...] tablets by mouth daily. 180 tablet 1 02/24/2025 Active Start: 05-17-2022 End: 05-20-2022 allopurinol (ZYLOPRIM) [...] daily. 180 tablet 3 01/28/2021 Active amLODIPine 10 mg oral tablet (20 sources) Dihydropyridine Calcium Channel Melissa Start: 04-03-2025 take 1 tablet by mouth once daily Amlodipine 10 mg tablet Active 10 MG PO Daily August 10, 2025 12:00am Complies with drug therapy Start: 12-15-2024 End: 08-10-2025 take 1 tablet by mouth once daily amLODIPine (Norvasc) 5 MG tablet Indications: Primary hypertension Take 1 tablet (5 mg) by mouth Daily 90 tablet 1 02/08/2025 05/11/2025 Discontinued (Therapy completed) Start: 08-12-2024 End: 11-10-2024 take 1 tablet [...] at 2100, Until Discontinued Start: 05-16-2022 End: 08-11-2025 take 5 mg by mouth once daily [...] 1 capsule by mouth once daily b nicydjd-V-hggsy acid (NEPHROCAPS) 1 MG capsule Take 1 capsule by mouth daily 0 Active aspirin 81 mg delayed release oral tablet (20 sources) Platelet Aggregation Inhibitor, Nonsteroidal Anti-inflammatory Drug Start: 09-08-20 Aspirin (Adult Low Dose Aspirin) 81 mg tablet,delayed release (DR/EC) Active 81 MG PO Daily December 15, 2024 1:00am Complies with drug therapy Start: 10-08-2020 End: 01-23-2024 aspirin 81 MG Chew Tab chewa ble tablet Chew 1 tablet daily. Last refill from our office. Medication can be purchased over the counter going forward. 30 tablet 10/12/2020 2:22 PM EST 10/08/2020 Active Start: 08-04-2018 End: 11-04-2018 take 1 tablet by mouth once daily Aspirin 81 mg Tablet,Delayed Release (Dr/Ec) Discontinued 81 MG PO Daily August 04, 2018 12:00am November 04, 2018 2:24pm atorvastatin 20 mg oral tablet (20 sources) HMG-CoA Reductase Inhibitor Start: 08-10-2025 take 1 tablet by mouth once daily in the evening Atorvastatin 20 mg tablet Active 20 MG PO Every evening August 10, 2025 12:00am Complies with drug therapy Start: 03-26-2025 take 1 tablet by magy th at bedtime atorvastatin (Lipitor) 20 MG tablet Take 20 mg by mouth at bedtime 03/26/2025 Active Start: 05-15-2022 End: 05-20-2022 take 20 mg by mouth once daily at bedtime 20 mg, Oral, DAILY AT BEDTIME, First dose on Marta 05/15/22 at 2215, Until Discontinued Start: 09-06-2020 End: 09-11-2023 take 20 mg by mouth once daily at bedtime 20 mg, Oral, DAILY AT BEDTIME, First dose on Thu08/28/23 at 2100, Until Discontinued cholecalciferol 1000 unt oral tablet (1 source) [...] week(s), # 56 cap(s), Refills(s) 0, Pharmacy: [id number], 170, cm, 01/03/25 11:03:00 EST, Height/Length Dosing, 90, kg, 01/03/25 11:03:00 EST, Weight Dosing Start Date: 01/03/25 Stop Date: 01/31/25 Status: Ordered Drug or medicament (substance) (1 source) Start: ergocalciferol 1.25 mg oral capsule (10 sources) Provitamin D2 Compound Start: take 1 capsule by mouth every week Ergocalciferol (Vitamin D2) 1,250 mcg (50,000 unit) capsule Active 1250 MCG PO every week August 10, 2025 12:00am Complies with drug therapy Start: 03-21-2025 End: 09-05-2025 take 1 capsule by mouth every week ergocalciferol (Vitamin D-2) 1.25 MG (58643 UT) capsule Indications: Vitamin D deficiency Take 1 capsule (1.25 mg) by mouth 1 (one) time per week 12 capsule 1 03/21/2025 09/05/2025 Active folic acid 1 mg oral tablet (6 sources) take 1 tablet by mouth once daily folic acid (FOLVITE) 1 MG tablet Take 1 mg by mouth daily 0 Active gabapentin 400 mg oral capsule (20 sources) Anti-epileptic Agent Start: 06-07-2023 End: 10-11-2025 take 1 capsule by mouth at bedtime [...] 06/12/2020 06/12/2023 Discontinued melatonin 3 mg oral capsule (20 sources) Start: 12-15-2024 take 1 capsule by mouth once daily at bedtime as needed for sleep Melatonin 3 mg capsule Active 3 MG PO Daily at bedtime as needed for sleep December 15, 2024 1:00am Complies with drug therapy Start: 12-15-2024 take 1 capsule by mo ut once daily at bedtime as needed for [...] mouth every 12 hours. 60 tablet 5 07/25/2025 2:01 PM EDT 04/20/2025 Active Start: 09-08-2024 mycophenolic a ree 360 mg [...] for nausea and vomiting December 16, 2024 1:00am Complies with drug therapy take 1 tablet by magy th every eight hours as needed ondansetron 4 MG tablet Take 1 tablet by mouth every 8 hours as needed for Nausea / Vomiting. Active polyethylene glycol 3350 06070 mg powder for oral solution (20 sources) Osmotic Laxative Start: 12-15-2024 Polyethylene Glycol 3350 (Miralax) 17 gram powder in packet Active 17 GM PO Daily as needed for constipation December 15, 2024 1:00am Complies with drug therapy Start: 09-08-2024 take 1 g by mouth [...] Inhibitor Antibacterial, Sulfonamide Antimicrobial Start: 09-23-20 End: 03-23-20 take 1 tablet by mouth three times weekly Sulfamethoxazole-t rimethoprim 800-160 MG per tablet Take 1 tablet by mouth 3 times weekly. 12 tablet 5 03/23/2025 03/23/2026 Active Start: 09-04-2023 End: 09-11-2023 take 1 [...] capsule (20 sources) Calcineurin Inhibitor Immunosuppressant Start: 03-23-2025 take 1 capsule by mouth once daily in the morning, then take 1 capsule by mouth once daily in the evening Tacrolimus (PROGRAF) 0.5 MG capsule Take 1 capsule by mouth every morning and take 1 capsule by mouth every evening. 60 capsule 5 07/25/2025 2:01 PM EDT 03/23/2025 Active Start: 11-22-2024 take 1 capsule by mo uth twice daily Tacrolimus 0.5 mg capsule Active 0.5 MG PO Twice daily December 15, 2024 1:00am Complies with drug therapy Start: 10-03-2024 take 1 capsule by mo uth once daily in the morning Tacrolimus (PROGRAF) 0.5 MG capsule Take 1 capsule by mouth every morning and take1 capsule by mouth every evening. 60 capsule 5 10/03/2024 Active Start: 10-03-2024 End: 08-11-2025 Tacrolimus 0.2 MG Pack Disco ntinued on 10/03/24 for low Tacrolimus level. Patient started on 0.5mg capsules. 10/03/2024 08/11/2025 Discontinued Start: 09-15-2024 End: 05-11-2025 take 0.5 mg by mouth once Prograf 0.2 MG pack Indicati ons: Liver Transplant Status Take 0.5 mg by mouth every 12 (twelve) hours 09/15/2024 05/11/2025 Discontinued (Therapy completed) Start: 09-15-2024 Prograf 0.2 MG pack 09/15/2024 [...] Start: 08-20-2022 take 1 capsule by mo [facility] every twelve hours [...] times daily. 180 capsule 5 01/11/2021 Active torsemide 20 mg oral tablet (20 sources) Loop Diuretic Start: 12-15-2024 take 1 tablet by mouth once daily Torsemide 20 MG tablet TAKE 1 TABLET BY MOUTH DAILY 90 tablet 1 03/23/2025 Active Start: 01-22-2024 End: 01-23-2024 take 1 [...] Sig (Original) acetaminophen 325 mg oral tablet (10 sources) Start: 01-16-2024 End: 01-23-2024 take 1 [...] hours as needed for Fever 0 August 27, 2018 12:00am September 27, 2018 8:04pm aluminum hydroxide 40 mg/ml / magnesium hydroxide [...] Hydroxide 200-200 mg and Simethicone 20 mg) B Complex And C 20-Folic Acid (Nephrocaps) 1 mg Capsule (1 source) Start: 08-27-2018 End: 09-27-2018 B Complex And C 20-Folic Acid (Nephrocaps) 1 mg Capsule Discontinued 1 MG PO Every morning 0 August 27, 2018 12:00am September 27, 2018 8:01pm B Complex And C 20-Folic Acid (Nephrocaps) 1 mg capsule (1 source) Start: 09-27-2018 End: 09-27-2018 B Complex And C 20-Folic Acid (Nephrocaps) 1 mg capsule Discontinued 1 MG PO Daily before lunch September 27, 2018 8:01pm September 27, 2018 8:02pm B Complex And C 20-Folic Acid (Triphrocaps) 1 mg capsule (1 source) Start: 09-27-2018 End: 12-15-2024 take 1 capsule by mouth once daily before breakfast B Complex And C 20-Folic Acid (Triphrocaps) 1 mg capsule Discontinued 1 CAP PO Daily before breakfast September 27, 2018 12:00am December 15, 2024 10:21am B Complex With C 20-Folic Acid (Nephrocaps) [...] 06/12/2023 Discontinued cefdinir 300 mg oral capsule (3 sources) Cephalosporin Antibacterial Start: 08-27-2018 End: 09-27-2018 take 1 capsule by mouth once daily Cefdinir 300 mg capsule Discontinued 300 MG PO Daily August 27, 2018 12:00am September 27, 2018 8:07pm give after dialysis on dialysis days. cefTRIAXone [...] itraconazole Fax results to: Dr. White - [phone] Transplant Neph - [phone] Each 09/10/2023 01/19/2024 Discontinued (Medication Reconciliation (suppress cancel msg)) Start: 09-10-2023 CUSTOM MEDICAT ION Labs to be obtained: 1- Tacrolimus level, trough - collect twice weekly until 09/24/23, then weekly until 10/08/23, them once every two weeks there after. 2- Itraconazole level - obtain once between 09/14-09/18. 3- Chem 6 - Obtain weekly while on itraconazole Fax results to: Dr. White - [phone] Transplant Neph - [phone] Each 0 09/10/2023 Active Diatrizoate (1 source) Start: 05-20-2022 End: 05-20-2022 diatrizoate Meglumine (Cystografin) 30 % UR solution 80 mL diphenhydrAMINE hydrochloride 25 mg oral tablet (1 source) Histamine-1 Receptor Antagonist Start: 09-03-2023 End: 09-11-2023 take 25 mg by mouth every twenty-four hours 25 mg, Oral, EVERY 24 HOURS, First dose on [facility] 09/03/23 at 1600, Until Discontinued Give 30 minutes prior to each amphotericin b dose docusate sodium 100 mg oral capsule (4 sources) Start: 05-15-2022 End: 05-16-2022 take 200 mg by mouth every twelve hours 200 mg, Oral, EVERY 12 HOURS, First dose on [facility] 05/15/22 at 2215, Until Discontinued Start: [...] tablet (20 sources) Histamine-2 Receptor Antagonist Start: 12-15-2024 End: 08-09-2025 take 1 tablet by mouth in the morning famotidine (Pepcid) 20 MG tablet Indications: Gastroesophageal reflux disease, unspecified whether esophagitis present Take 1 tablet (20 mg) by mouth in the morning and 1 tablet (20 mg) before bedtime. 180 tablet 1 02/08/2025 05/11/2025 Discontinued (Reorder) Start: 02-08-2024 End: 11-21-2024 take 1 tablet [...] PO Four times daily January 18, 2020 4:59pm December 15, 2024 10:16am Take at 7AM, 3PM, and 11PM Start: 08-04-2018 End: 01-18-2020 take 60 g by mouth three times daily Lactulose 10 gram/15 mL Solution Discontinued 60 GM PO Three times daily 0 September 29, 2018 2:13pm January 18, 2020 4:59pm Take at 7AM, 3PM, and 11PM take [...] times daily as needed for hypotension August 04, 2018 12:00am August 27, 2018 11:05am take 2 tablets by mo uth three [...] pantoprazole 40 mg delayed release oral tablet (9 sources) Proton Pump Inhibitor Start: 01-18-2020 End: 12-15-2024 take 1 tablet by mouth once daily Pantoprazole (Protonix) 40 mg tablet,delayed release (DR/EC) Discontinued 40 MG PO Daily January 18, 2020 1:00am December 15, 2024 10:16am Start: 04-14-2019 End: 12-15-2024 take 1 tablet by mouth twice daily Pantoprazole (Protonix) 20 mg Tablet,Delayed Release (Dr/Ec) Discontinued 20 MG PO Twice daily April 14, 2019 12:00am December 15, 2024 10:16am Start: 11-04-2018 End: 12-16-2018 take 1 tablet by mouth once daily Pantoprazole 40 mg tablet,delayed release (DR/EC) Discontinued 40 MG PO Daily 42 42 November 04, 2018 1:00am December 15, 2018 1:00am December 16, 2018 1:01am potassium bicarbonate 20 meq effervescent oral tablet [...] chloride 20 meq extended release oral tablet (18 sources) Start: 09-10-2023 End: 09-10-2023 Start: 09-09-2023 [...] Release Discontinued 40 MEQ PO Daily August 04, 2018 12:00am December 15, 2024 10:16am take 40 mEq by mouth once daily [...] of 40mg/day. rifAXIMin 550 mg oral tablet (15 sources) Rifamycin Antibacterial Start: 08-27-2018 End: 12-15-2024 take 1 tablet by mouth twice daily Rifaximin (Xifaxan) 550 mg Tablet Discontinued 550 MG PO Twice daily 0 August 27, 2018 12:00am December 15, 2024 10:16am RifAXIMin (XIFAX AN PO) Take by mouth. [...] PO THREE TIMES DAILY WITH MEALS August 04, 2018 12:00am December 15, 2024 10:21am Start: 07-17-2018 take 1 tablet by magy th three times daily at mealtime sevelamer 800 MG Tab tablet Take 800 mg by mouth 3 times daily with meals. 0 07/17/2018 Active take 2 tablets by mo uth three times daily at mealtime sevelamer (RENVELA) 800 MG tablet Take 2 tablets by mouth 3 times daily (with meals) 0 Active Sod Picosulf-Mag Ox-Citric Ac (3 sources) Start: 12-15-2024 End: 12-26-2024 take 1 dose by mouth once daily Sod Picosulf-Mag Ox-Citric Ac (Clenpiq) 10 mg-3.5 gram- 12 gram/175 mL solution Discontinued 175 ML PO Daily 350 0 December 15, 2024 1:00am December 26, 2024 7:57am Take first dose at 3pm evening before colonoscopy; second dose at 9 pm night before colonoscopy Start: 12-15-2024 End: 12-26-2024 take 1 dose [...] 175 ML PO Daily 350 0 December 15th, 2025 12:00am Take first dose at 3pm evening [...] 250 mL sucralfate 1000 mg oral tablet (3 sources) Aluminum Complex Start: 01-18-2020 End: 12-15-2024 take 1 tablet by mouth every six hours Sucralfate (Carafate) 1 gram tablet Discontinued 1 GM PO Q6H 56 14 January 18, 2020 1:00am December 15, 2024 10:21am tadalafil 10 mg oral tablet (19 sources) Phosphodiesterase 5 Inhibitor Start: 11-22-2024 take 1 tablet by mouth every hour, then take 2 tablets by mouth every twenty-four hours Cialis 10 mg Tab 10 mg = 1 tab(s), Oral, As Directed, take 1 tab at least 1 hr prior to intercourse, do not exceed 20 mg (2 tab) in 24 hrs, # 30 tab(s), Refills(s) 5, Pharmacy: [id number], 170, cm, 11/22/24 9:39:00 EST, Height/Length Dosing, 90, kg, 11/22/24 9:39:00 EST, Weight Dosing Start Date: 11/22/24 Status: Ordered take 1 tablet by magy th every twenty-four hours as needed tadalafil (Cialis) 10 MG tablet Take 10 mg by mouth Daily as needed for erectile dysfunction Active tamsulosin hydrochloride 0.4 mg oral capsule (20 sources) alpha-Adrenergic Melissa Start: 10-03-2024 End: 08-11-2025 take 1 capsule by mouth once daily Tamsulosin HCl 0.4 MG capsule Take 1 capsule by mouth daily. 90 capsule 1 10/03/2024 08/11/2025 Discontinued Start: 10-03-2024 End: 11-17-2025 tamsulosin (Flomax) 0.4 MG 2 4 hr capsule 0.4 mg 11/22/2024 11/17/2025 Active Start: 09-08-2024 End: 11-17-2025 take 1 capsule by mouth twice daily Tamsulosin 0.4 mg capsule Active 0.4 MG PO Twice daily December 15, 2024 1:00am Complies with drug therapy Start: 08-10-2024 End: 10-01-2024 take 1 capsule [...] release product. Do not chew or crush ursodiol 300 mg oral capsule (1 source) Bile Acid Start: 07-12-2025 End: 08-11-2025 take 2 capsules by mouth every twelve hours ursodiol 300 MG capsule Take 2 capsules by mouth every 12 hours. 120 capsule 5 07/13/2025 12:15 PM EDT 07/12/2025 08/11/2025 Discontinued (Reorder) (2 sources) Start: 09-12-2023 End: 09-11-2023 0.25 [...] Classification Problem Date Documented Date Episodic/Chronic Abdominal hernia (20 sources) Umbilical hernia; Translations: [Umbilical hernia without obstruction or gangrene] Onset: 4 02-11-2024 Episodic Abdominal pain (20 sources) Generalized abdominal pain; Translations: [Generalized abdominal pain] Onset: 3 11-03-2023 Episodic Acute and unspecified renal failure (2 sources) Chronic renal failure Onset: 9 11-22-2024 Chronic Alcohol-related disorders (20 sources) Alcoholic cirrhosis; Translations: [Alcoholic cirrhosis of liver without ascites] Onset: 8 Resolved: 4 10-05-2018 Chronic Comment on above: Outside Source Comme nt: Overview: Added automatically from request for surgery [id number] Allergic reactions (20 sources) Eczema; Translations: [Dermatitis, unspecified] Onset: 4 02-25-2024 Episodic Anxiety disorders (20 sources) Generalized anxiety disorder; Translations: [Generalized anxiety disorder] Onset: 3 11-03-2023 Chronic Chronic kidney disease (20 sources) End stage renal failure on dialysis; Translations: [End-stage renal disease] Onset: 8 Resolved: 5 06-22-2018 Chronic Comment on above: Outside Source Comme nt: Overview: Added automatically from request for surgery [id number] Coagulation and hemorrhagic disorders (6 sources) Hypercoagulability state; Translations: [Other primary thrombophilia] 08-21-2018 Chronic Congestive heart failure; nonhypertensive (20 sources) Acute diastolic heart failure; Translations: [Acute diastolic (congestive) heart failure] Onset: 4 01-20-2024 Chronic Coronary atherosclerosis and other heart disease (20 sources) Coronary arteriosclerosis; Translations: [Atherosclerotic heart disease of [place] coronary artery without angina pectoris] Onset: 3 04-22-2020 Chronic Deficiency and other anemia (3 sources) Anemia due to blood loss; Translations: [Iron deficiency anemia secondary to blood loss (chronic)] 11-03-2018 Chronic Deficiency and other anemia (20 sources) Anemia; Translations: [Anemia, unspecified] Onset: 9 11-03-2023 Episodic Diabetes mellitus without complication (20 sources) Hyperglycemia; Translations: [Hyperglycemia, unspecified] Onset: 3 11-03-2023 Episodic Disorders of lipid metabolism (20 sources) Hyperlipidemia, unspecified; Translations: [Hyperlipidemia] Onset: 3 Chronic Esophageal disorders (20 sources) Gastroesophageal reflux disease; Translations: [Gastro-esophageal reflux disease without esophagitis] Onset: 3 11-03-2023 Chronic Essential hypertension (20 sources) Benign essential hypertension; Translations: [Essential (primary) hypertension] Onset: 2 04-22-2020 Chronic Fluid and electrolyte disorders (3 sources) Hypokalemia; Translations: [Hypokalemia] 09-28-2018 Episodic Genitourinary symptoms and ill-defined conditions (1 source) Finding of urological device; Translations: [Encounter for attention to other artificial openings of urinary tract] Chronic Headache; including migraine (1 source) Headache; including migraine; Translations: [HEADACHE UNSPECIFIED] Onset: 2 Hyperplasia of prostate (20 sources) Benign prostatic hypertrophy with outflow obstruction; [...] prostate, unspecified] Onset: 5 Episodic Nutritional deficiencies (5 sources) Moderate protein energy malnutrition; Translations: [Moderate [...] Taking high risk medication; Translations: [Other terminal superintendent (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] Episodic Other aftercare (1 source) Patient encounter status; Translations: [Encounter for therapeutic drug level monitoring] 06-17-2024 Episodic Other and ill-defined heart disease (20 sources) Dysfunction of papillary muscle; Translations: [Other ill-defined heart diseases] Onset: 3 11-03-2023 Chronic Other and ill-defined heart disease (20 sources) Diastolic dysfunction; Translations: [Other ill-defined heart diseases] Onset: 4 02-11-2024 Chronic Other circulatory disease (20 sources) Carotid bruit; Translations: [Other specified symptoms and signs involving the circulatory and respiratory systems] Onset: 4 09-05-2024 Episodic Other diseases of kidney and ureters (3 sources) Secondary hyperparathyroidism; Translations: [Secondary hyperparathyroidism of [...] elsewhere classified] 03-21-2025 Chronic Other gastrointestinal disorders (3 sources) Irritable bowel syndrome characterized by constipation; [...] Overview: Added automatically from request for surgery [id number] Other liver diseases (3 sources) Liver transplant status; Translations: [LIVER TRANSPLANT STATUS] Onset: 3 Chronic Other liver diseases (1 source) Lesion of liver; Translations: [Liver disease, unspecified] 06-17-2024 Chronic Other liver diseases (20 sources) Portal hypertension; Translations: [Portal hypertension] Onset: 4 02-11-2024 Chronic Other liver diseases (3 sources) Hepatorenal syndrome; Translations: [Hepatorenal syndrome] 09-27-2018 Chronic Other lower respiratory disease (1 source) Hypoxia; Translations: [Hypoxemia] 09-10-2023 Episodic Other male genital disorders (19 sources) Male erectile dysfunction, unspecified; Translations: [Erectile dysfunction] Onset: 4 Chronic Other nervous system disorders (20 sources) Peripheral nerve disease ; Translations: [Polyneuropathy, unspecified] Onset: 4 12-03-2023 Chronic Other nervous system disorders (4 sources) Polyneuropathy; Translations: [Other specified polyneuropathies] 01-05-2025 Chronic Other nervous system disorders (20 sources) Tremor; [...] nutritional; endocrine; and metabolic disorders (3 sources) Hyperammonemia; Translations: [Disorder of urea cycle metabolism, unspecified] 04-14-2019 Chronic Other nutritional; endocrine; and metabolic disorders (2 sources) Morbid obesity; Translations: [Morbid (severe) obesity due to excess calories] 08-10-2025 Chronic Other nutritional; endocrine; and metabolic disorders (1 source) Obesity caused by energy imbalance; Translations: [Other obesity due to excess calories] 08-10-2025 Chronic Other nutritional; endocrine; and metabolic disorders (18 sources) Hyperuricemia; Translations: [Hyperuricemia without signs of [...] caused by tuberculosis or sexually transmitted disease) (3 sources) Pneumonia; Translations: [Pneumonia, unspecified organism] 08-23-2018 [...] general symptoms] 08-25-2023 Episodic Residual codes; unclassified (20 sources) Bilateral lower limb edema; Translations: [Localized edema] Onset: 4 01-06-2024 Episodic Residual codes; unclassified (20 sources) Insomnia; Translations: [Insomnia, unspecified] Onset: 4 01-06-2024 Episodic Respiratory failure; insufficiency; arrest (adult) (4 sources) Acute respiratory failure; Translations: [Acute respiratory [...] Classification Problem Date Documented Da te Episodic/Chronic Acute and unspecified renal failure (20 sources) Acute injury of kidney; Translations: [Acute kidney failure, unspecified] Onset: 2 Resolved: 4 Episodic Calculus of urinary tract (20 sources) Calculus of ureter; Translations: [Kidney stone] Onset: 2 Resolved: 5 11-03-2023 Episodic Complication of device; implant or [...] unspecified; Translations: [ANEMIA UNSPECIFIED] Onset: 2 Episodic Fever of unknown origin (20 sources) [...] disorders (20 sources) Mood disorders Onset: 4 Resolved: 5 02-11-2024 Mycoses (20 sources) Histoplasmosis; Translations: [Histoplasmosis, unspecified] Onset: 3 09-10-2023 Episodic Nausea and vomiting (20 sources) Nausea and vomiting; Translations: [Nausea with vomiting, unspecified] Onset: 0 05-10-2020 Episodic Other aftercare (1 source) Other care home (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; Translations: [OTH [facility] 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 THERAPY] Onset: 2 Episodic Other aftercare (1 source) [facility] (current) use of aspirin; 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: [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] Onset: 2 Episodic Other circulatory disease (4 sources) Other specified symptoms and signs involving the circulatory and respiratory systems; Translations: [OTH SPEC SX SIGNS INVLV CIRC RS] Onset: 2 Episodic Other diseases of kidney [...] of breath] Onset: 4 01-06-2024 Episodic Other nutritional; endocrine; and metabolic disorders (20 sources) Body mass index 25-29 - overweight; Translations: [Overweight] Onset: 4 Resolved: 5 04-18-2024 Episodic Other screening for suspected conditions [...] 01-16-2024 Episodic Residual codes; unclassified (20 sources) H/O: tissue/organ recipient; Translations: [Transplanted organ and tissue status, unspecified] Onset: 3 Resolved: 5 02-11-2024 Chronic Residual codes; unclassified (1 source) Ill-defined and unknown cause of mortality; Translations: [ILL-DEFINED UNKNOWN CAUSE MORTALITY] Onset: 2 Episodic Screening and history of mental health [...] 2.0 % [facility] Eosinophils/100 WBC (Bld) 3.6 % 0.9 - 7.0 % [facility] Erythrocyte distribution width (RBC) [Ratio] 12.2 % 11.0 - 15.0 % [facility] Hematocrit (Bld) [Volume fraction] 45.9 % 42.0 - 54.0 % [facility] Hemoglobin (Bld) [Mass/Vol] 15.7 g/dL 14.0 - 18.0 g/dL [facility] IMMATURE GRANULOCYTES ABS AUTO 0.01 [facility] Immature granulocytes/100 WBC (Bld) 0.2 % 0.0 - 0.5 % [facility] LYMPHOCYTES ABSOLUTE AUTO 1.7 [facility] Lymphocytes/100 WBC (Bld) 32.8 % 20.5 - 60.0 % [facility] MCH (RBC) [Entitic mass] 29.4 pg 25.9 - 34.0 pg [facility] MCHC (RBC) [Mass/Vol] 34.2 g/dL 29.9 - 35.2 g/dL [facility] MCV (RBC) [Entitic vol] 86 fL 80.0 - 94.0 fL [facility] MONOCYTES ABSOLUTE AUTO 0.5 [facility] Monocytes/100 WBC (Bld) 9.3 % 1.7 - 12.0 % [facility] NEUTROPHILS ABSOLUTE AUTO 2.7 [facility] Neutrophils/100 WBC (Bld) 53.5 % 43.0 - 75.0 % [facility] Platelet mean volume (Bld) [Entitic vol] 9.8 fL 9.5 - 13.5 fL [facility] TBH EO # 0.2 [facility] PLT 228 [facility] RBC 5.34 [facility] WBC 5.1 [facility] ALL CBC WITH AUTO DIFFon BASOPHILS ABSOLUTE AUTO 0 [facility] Basophils/100 WBC (Bld) 0.6 % 0.2 - 2.0 % [facility] Eosinophils/100 WBC (Bld) 3.2 % 0.9 - 7.0 % [facility] Erythrocyte distribution width (RBC) [Ratio] 12.5 % 11.0 - 15.0 % [facility] Hematocrit (Bld) [Volume fraction] 46.3 % 42.0 - 54.0 % [facility] Hemoglobin (Bld) [Mass/Vol] 15.8 g/dL 14.0 - 18.0 g/dL [facility] IMMATURE GRANULOCYTES ABS AUTO 0.01 [facility] Immature granulocytes/100 WBC (Bld) 0.2 % 0.0 - 0.5 % [facility] LYMPHOCYTES ABSOLUTE AUTO 1.4 [facility] Lymphocytes/100 WBC (Bld) 31 % 20.5 - 60.0 % [facility] MCH (RBC) [Entitic mass] 29.6 pg 25.9 - 34.0 pg [facility] MCHC (RBC) [Mass/Vol] 34.1 g/dL 29.9 - 35.2 g/dL [facility] MCV (RBC) [Entitic vol] 86.9 fL 80.0 - 94.0 fL [facility] MONOCYTES ABSOLUTE AUTO 0.5 [facility] Monocytes/100 WBC (Bld) 10.6 % 1.7 - 12.0 % [facility] NEUTROPHILS ABSOLUTE AUTO 2.5 [facility] Neutrophils/100 WBC (Bld) 54.4 % 43.0 - 75.0 % [facility] Platelet mean volume (Bld) [Entitic vol] 9.8 fL 9.5 - 13.5 fL [facility] TBH EO # 0.2 [facility] TBH PLT 219 [facility] RBC 5.33 [facility] TB WBC 4.6 [facility] Ambulatory Visit Summaryon 0 03-23-2025 Ambulatory Visit [...] choosing us for your care. [facility] Urology Office/Clinic Noteon 03-23-2025 Urology Office/Clinic [...] E&M of Est. Patient Moderate 30-39 Min 38565 2. BPH with urinary obstruction (N40.1: Benign [...] next steps including cysto/TRUS for sizing Ordered: 28704 Measure Post Void residual urine and/or bladder capacity by US- non-imaging E&M of Est. Patient Moderate 30-39 Min 37199 Urnls Dip Stick Auto w/o Microscopy POC 31616 3. Weak urine stream (R39.12: Poor urinary stream) -See #2 Ordered: 35221 Measure Post Void residual urine and/or bladder capacity by US- non-imaging E&M of Est. Patient Moderate 30-39 Min 93498 Urnls Dip Stick Auto w/o Microscopy POC 45511 4. Erectile dysfunction (N52.9: Male erectile dysfunction, unspecified) LINDEN 19(3) Started taking Cialis 10mg PRN at prior OV. Pt is very satisfied with current dosing. No need for change at this time. -Continue Cialis 10mg PRN Ordered: 54756 Measure Post Void residual urine and/or bladder capacity by US- non-imaging E&M of Est. Patient Moderate 30-39 Min 57089 Urnls Dip Stick Auto w/o Microscopy POC 88039 5. Screening PSA (prostate specific antigen) (Z12.5: Encounter for screening for malignant neoplasm of prostate) PSAs: 09/15/22 - 0.79 08/29/24 - 0.85 Pt aware that he is due for PSA in July for annual check. Pt would like to obtain this at [facility]. -PSA at [facility] in early August for screening (recall placed) -F/U to review results and discuss #2 Ordered: E&M of Est. Patient Moderate 30-39 Min 60102 6. History of kidney transplant (Z94.0: Kidney transplant status) 08/29/24 - BUN 18, Cre 1.3, GFR 58 Pt had liver and kidney transplant in 2019 [address] [facility]. Due for labs in April. Pt reports being on Bactrim 3x weeks for kidney transplant. Ordered: E&M of Est. Patient Moderate 30-39 Min 68666 Follow-up With When Contact Information Clementina James, URL Within 6 months Additional Instructions: w/ PSA Patient Education Benign Prostatic Hyperplasia Problem List/Past Medical History Ongoing Acute kidney injury Alcoho (more content not included)... [facility] Comment on above: Result Comment: Elec tronically Signed By: Clementina James\.br\Date and Time Signed: 03/23/25 08:54 EDT Office Visiton 03-22-2025 Follow-up visit [id number] George Styles 1970 M Date Provider Department Center 03/22/2025 [facility] Family History Problem Relation Age of Onset Coronary artery disease Mother Coronary artery disease Father Coronary artery disease Sister Coronary artery disease Brother Family Status - Relation Status Age at Mother Father Sister Alive Brother Alive Level of Service:02921 [place] OFFICE/OUTPATIENT ESTABLISHED MOD MDM 30 MIN Normal [facility] CALCIUM 24 HOUR URINEon CALCIUM 24 HOUR URINE 348.3 High [facility] CALCIUM URINE RANDOM 12.9 mg/dL 5.1 - 2 1.0 mg/dL [facility] Interpretation and review of laboratory results Abnormal [facility] CREATININE 24 HOUR URINEon 0 03-08-2025 CREATININE 24 HOUR URINE 1600.56 [facility] CREATININE URINE RANDOM 59.28 mg/dL 20.00 - 300.00 mg/dL [facility] TOTAL VOLUME 24 HOUR URINE 2700 mL/24hr [facility] No Panel Informationon 03-08 [facility] SODIUM 24 HOUR URINEon 03-08 Sodium (U) [Moles/Vol] 74 mmol/L 30 - 90 mmol/L [facility] SODIUM 24 HOUR URINE 200 [facility] ALL CBC WITH AUTO DIFFon BASOPHILS ABSOLUTE AUTO 0 [facility] Basophils/100 WBC (Bld) 0.9 % 0.2 - 2.0 % [facility] Eosinophils/100 WBC (Bld) 2.8 % 0.9 - 7.0 % [facility] Erythrocyte distribution width (RBC) [Ratio] 12.5 % 11.0 - 15.0 % [facility] Hematocrit (Bld) [Volume fraction] 47.5 % 42.0 - 54.0 % [facility] Hemoglobin (Bld) [Mass/Vol] 16.1 g/dL 14.0 - 18.0 g/dL [facility] IMMATURE GRANULOCYTES ABS AUTO 0.01 [facility] Immature granulocytes/100 WBC (Bld) 0.2 % 0.0 - 0.5 % [facility] LYMPHOCYTES ABSOLUTE AUTO 1.6 [facility] Lymphocytes/100 WBC (Bld) 34.5 % 20.5 - 60.0 % [facility] MCH (RBC) [Entitic mass] 29.7 pg 25.9 - 34.0 pg [facility] MCHC (RBC) [Mass/Vol] 33.9 g/dL 29.9 - 35.2 g/dL [facility] MCV (RBC) [Entitic vol] 87.6 fL 80.0 - 94.0 fL [facility] MONOCYTES ABSOLUTE AUTO 0.4 [facility] Monocytes/100 WBC (Bld) 9.1 % 1.7 - 12.0 % [facility] NEUTROPHILS ABSOLUTE AUTO 2.5 [facility] Neutrophils/100 WBC (Bld) 52.5 % 43.0 - 75.0 % [facility] Platelet mean volume (Bld) [Entitic vol] 9.8 fL 9.5 - 13.5 fL [facility] TBH EO # 0.1 [facility] TB PLT 216 [facility] TB RBC 5.42 [facility] WBC 4.7 [facility] Reminderson 02-21-2025 Reminders Reminders From: Paulina Morales To: EU - Administrative; Sent: 11/22/2024 09:52:41 EST Show up: 01/28/2025 09:52:00 EST Subject: Ambulatory Reminder Due Date/Time: 03/09/2025 09:52:00 EDT Reminder/Recall Patient needs scheduled with [facility] for a 4 month F/U, he schedule is not built yet. Due back in February 2025 LVM Pt is scheduled for ThMarch 23, 2025 @8:00am w/ [facility] in [place]. [facility] ALL CBC WITH AUTO DIFFon BASOPHILS ABSOLUTE AUTO 0 [facility] Basophils/100 WBC (Bld) 0.7 % 0.2 - 2.0 % [facility] Eosinophils/100 WBC (Bld) 2.9 % 0.9 - 7.0 % [facility] Erythrocyte distribution width (RBC) [Ratio] 12.6 % 11.0 - 15.0 % [facility] Hematocrit (Bld) [Volume fraction] 46.7 % 42.0 - 54.0 % [facility] Hemoglobin (Bld) [Mass/Vol] 15.5 g/dL 14.0 - 18.0 g/dL [facility] IMMATURE GRANULOCYTES ABS AUTO 0.01 [facility] Immature granulocytes/100 WBC (Bld) 0.2 % 0.0 - 0.5 % [facility] LYMPHOCYTES ABSOLUTE AUTO 1.6 [facility] Lymphocytes/100 WBC (Bld) 35 % 20.5 - 60.0 % [facility] MCH (RBC) [Entitic mass] 29.5 pg 25.9 - 34.0 pg [facility] MCHC (RBC) [Mass/Vol] 33.2 g/dL 29.9 - 35.2 g/dL [facility] MCV (RBC) [Entitic vol] 88.8 fL 80.0 - 94.0 fL [facility] MONOCYTES ABSOLUTE AUTO 0.4 [facility] Monocytes/100 WBC (Bld) 9.3 % 1.7 - 12.0 % [facility] NEUTROPHILS ABSOLUTE AUTO 2.3 [facility] Neutrophils/100 WBC (Bld) 51.9 % 43.0 - 75.0 % [facility] Platelet mean volume (Bld) [Entitic vol] 9.9 fL 9.5 - 13.5 fL [facility] TBH EO # 0.1 [facility] PLT 219 [facility] RBC 5.26 [facility] TB WBC 4.5 [facility] Ambulatory Visit Summaryon 0 01-03-2025 Ambulatory [...] AM EDT With: JONATHAN Almodovar APRN, Steph Wilson Where: [facility] [address] [place] [address]- You Need to Schedule the Following Appointments Follow Up with JONATHAN Almodovar APRN, Steph Wilson, FAM, URL When: Where: Medications What How Much When Instructions New doxycycline (doxycycline hyclate 100 mg Cap) 1 Capsules By Mouth 2 times a day Duration: 4 Weeks may substitute hyclate for monohydrate based on availability Pickup at [facility] Unchanged allopurinol (allopurinol 100 mg Tab) [...] physician if questions or concerns Pharmacy Information [id number]: [address] [place], [place] [phone] Allergies shellfish (Anaphylaxis) Problems Ongoing - Any [...] asking a (more content not included)... [facility] Urology Office/Clinic Noteon 01-03-2025 Urology [...] Pt understands and agrees with plan. Ordered: 05139 Measure Post Void residual urine and/or bladder capacity by US- non-imaging Urnls Dip Stick Auto w/o Microscopy POC 59721 3. Erectile dysfunction (N52.9: Male erectile dysfunction, unspecified) LINDEN (3) Started taking Cialis 10mg PRN at prior OV. Ordered: Urnls Dip Stick Auto w/o Microscopy POC 80305 4. Screening PSA (prostate specific antigen) (Z12.5: Encounter for screening for malignant neoplasm of prostate) PSA 09/15/22 - 0.79 08/29/24 - 0.85 Reviewed PSA w patient today. Ordered: Urnls Dip Stick Auto w/o Microscopy POC 08990 5. History of kidney transplant (Z94.0: Kidney transplant status) 08/29/24 - BUN 18, Cre 1.3, GFR 58 Pt had liver and kidney transplant in 2020 [address] yearly with [facility]. [1] Pt reports being on Bactrim 3x weeks for kidney transplant. Ordered: Urnls Dip Stick Auto w/o Microscopy POC 38844 Orders: doxycycline, 100 mg = 1 cap(s), Oral, BID, may substitute hyclate for monohydrate based on availability, X 4 week(s), # 56 cap(s), Refills(s) 0, Pharmacy: [id number], 170, cm, 01/03/25 11:03:00 EST, Height/Length Dosing, 90, kg, 01/03/25 11:03:00 E... Follow-up With When Contact Information JONATHAN Almodovar APRN, Steph Wilson, RUMA, URL Additional Instructions: Follow up FEBRUARY or sooner if needed Patient Education Benign Prostatic Hyperplasia I, Diana De La Vega, personally scribed for JONATHAN Martino APRN on 01/03/2025 11:26:59. . Documentation recorded by the [email or web address] De La Vega accurately reflects the services(s) I performed and decisions made by me. Authenticat (more content not included)... [facility] Comment on above: Result [...] fL [facility] TBH EO # 0.1 [facility] PLT 203 [facility] RBC 5.33 [facility] WBC 4.2 [facility] Ambulatory Visit Summaryon 1 01-23-2024 Ambulatory [...] for choosing us for your care. [facility] Urology Office/Clinic Noteon 11-22-2024 Urology Office/Clinic [...] with voice recognition artificial intelligence software, specifically [employer] and or [employer]. Substitutions may have occurred due to the [...] -Follow-up 4 months per patient preference Ordered: 95548 Measure Post Void residual urine and/or bladder capacity by US- non-imaging Urnls Dip Stick Auto w/o Microscopy POC 69796 2. Erectile dysfunction (N52.9: Male erectile dysfunction, [...] transplant in 2019 [address] with [facility]. [1] Orders: tadalafil, 10 mg = 1 tab(s), Oral, As Directed, take 1 tab at least 1 hr prior to intercourse, do not exceed 20 mg (2 tab) in 24 hrs, # 30 tab(s), Refills(s) 5, Pharmacy: [id number], 170, cm, 11/22/24 9:39:00 EST, Height/Length Dosing, 90, kg, 12... tamsulosin, 0.4 mg = 1 cap(s), Oral, BID, X 30 day(s), # 60 cap(s), Refills(s) 11, Pharmacy: [id number], 170, cm, 09/08/24 14:00:00 EDT, Height/Length Dosing, 90, kg, 09/08/24 14:00:00 EDT, Weight Dosing tamsulosin, 0.4 mg = 1 cap(s), Oral, BID, X 90 day(s), # 180 cap(s), Refills(s) 3, Pharmacy: [id number], 170, cm, 09/08/24 14:00:00 EDT, Height/Length [...] liver disease (more content not included)... [facility] Comment on above: Result [...] % [facility] Hematocrit (Bld) [Volume fraction] 47.5 % 42.0 - 54.0 % [facility] Hemoglobin (Bld) [Mass/Vol] 15.6 g/dL 14.0 - 18.0 g/dL [facility] IMMATURE GRANULOCYTES ABS AUTO 0 [facility] Immature granulocytes/100 WBC (Bld) 0 % 0.0 - 0.5 % [facility] LYMPHOCYTES ABSOLUTE AUTO 1.6 [facility] Lymphocytes/100 WBC (Bld) 36.3 % 20.5 - 60.0 % [facility] MCH (RBC) [Entitic mass] 28.6 pg 25.9 - 34.0 pg [facility] MCHC (RBC) [Mass/Vol] 32.8 g/dL 29.9 - 35.2 g/dL [facility] MCV (RBC) [Entitic vol] 87.2 fL 80.0 - 94.0 fL [facility] MONOCYTES ABSOLUTE AUTO 0.4 [facility] Monocytes/100 WBC (Bld) 9.8 % 1.7 - 12.0 % [facility] NEUTROPHILS ABSOLUTE AUTO 2.2 [facility] Neutrophils/100 WBC (Bld) 50.6 % 43.0 - 75.0 % [facility] Platelet mean volume (Bld) [Entitic vol] 9.5 fL 9.5 - 13.5 fL [facility] TBH EO # 0.1 [facility] PLT 230 [facility] RBC 5.45 [facility] WBC 4.3 [facility] ALL CBC WITH AUTO DIFFon BASOPHILS ABSOLUTE AUTO 0 [facility] Basophils/100 WBC (Bld) 0.5 % 0.2 - 2.0 % [facility] Eosinophils/100 WBC (Bld) 2.6 % 0.9 - 7.0 % [facility] Erythrocyte distribution width (RBC) [Ratio] 12.2 % 11.0 - 15.0 % [facility] Hematocrit (Bld) [Volume fraction] 47.7 % 42.0 - 54.0 % [facility] Hemoglobin (Bld) [Mass/Vol] 15.7 g/dL 14.0 - 18.0 g/dL [facility] IMMATURE GRANULOCYTES ABS AUTO 0.01 [facility] Immature granulocytes/100 WBC (Bld) 0.2 % 0.0 - 0.5 % [facility] Interpretation and review of laboratory results Abnormal [facility] LYMPHOCYTES ABSOLUTE AUTO 1.5 [facility] Lymphocytes/100 WBC (Bld) 37 % 20.5 - 60.0 % [facility] MCH (RBC) [Entitic mass] 28.9 pg 25.9 - 34.0 pg [facility] MCHC (RBC) [Mass/Vol] 32.9 g/dL 29.9 - 35.2 g/dL [facility] MCV (RBC) [Entitic vol] 87.8 fL 80.0 - 94.0 fL [facility] MONOCYTES ABSOLUTE AUTO 0.3 [facility] Monocytes/100 WBC (Bld) 7.7 % 1.7 - 12.0 % [facility] NEUTROPHILS ABSOLUTE AUTO 2.2 [facility] Neutrophils/100 WBC (Bld) 52 % 43.0 - 75.0 % [facility] Platelet mean volume (Bld) [Entitic vol] 9.3 fL Low 9.5 - 13.5 fL [facility] EO # 0.1 [facility] PLT 211 [facility] RBC 5.43 [facility] WBC 4.2 [facility] ALL CBC WITH AUTO DIFFon BASOPHILS ABSOLUTE AUTO 0 [facility] Basophils/100 WBC (Bld) 1 % 0.2 - 2.0 % [facility] Eosinophils/100 WBC (Bld) 2.9 % 0.9 - 7.0 % [facility] Erythrocyte distribution width (RBC) [Ratio] 12.3 % 11.0 - 15.0 % [facility] Hematocrit (Bld) [Volume fraction] 49.9 % 42.0 - 54.0 % [facility] Hemoglobin (Bld) [Mass/Vol] 16.5 g/dL 14.0 - 18.0 g/dL [facility] IMMATURE GRANULOCYTES ABS AUTO 0.01 [facility] Immature granulocytes/100 WBC (Bld) 0.2 % 0.0 - 0.5 % [facility] LYMPHOCYTES ABSOLUTE AUTO 1.3 [facility] Lymphocytes/100 WBC (Bld) 30.6 % 20.5 - 60.0 % [facility] MCH (RBC) [Entitic mass] 29.2 pg 25.9 - 34.0 pg [facility] MCHC (RBC) [Mass/Vol] 33.1 g/dL 29.9 - 35.2 g/dL [facility] MCV (RBC) [Entitic vol] 88.3 fL 80.0 - 94.0 fL [facility] MONOCYTES ABSOLUTE AUTO 0.4 [facility] Monocytes/100 WBC (Bld) 8.8 % 1.7 - 12.0 % [facility] NEUTROPHILS ABSOLUTE AUTO 2.4 [facility] Neutrophils/100 WBC (Bld) 56.5 % 43.0 - 75.0 % [facility] Platelet mean volume (Bld) [Entitic vol] 9.9 fL 9.5 - 13.5 fL [facility] TBH EO # 0.1 [facility]H PLT 245 [facility] TB RBC 5.65 [facility] WBC 4.2 [facility] ALL CBC WITH AUTO DIFFon BASOPHILS ABSOLUTE AUTO 0 [facility] Basophils/100 WBC (Bld) 0.6 % 0.2 - 2.0 % [facility] Eosinophils/100 WBC (Bld) 3.5 % 0.9 - 7.0 % [facility] Erythrocyte distribution width (RBC) [Ratio] 12.3 % 11.0 - 15.0 % [facility] Hematocrit (Bld) [Volume fraction] 47.1 % 42.0 - 54.0 % [facility] Hemoglobin (Bld) [Mass/Vol] 15.4 g/dL 14.0 - 18.0 g/dL [facility] IMMATURE GRANULOCYTES ABS AUTO 0.01 [facility] Immature granulocytes/100 WBC (Bld) 0.2 % 0.0 - 0.5 % [facility] LYMPHOCYTES ABSOLUTE AUTO 1.5 [facility] Lymphocytes/100 WBC (Bld) 31.7 % 20.5 - 60.0 % [facility] MCH (RBC) [Entitic mass] 28.9 pg 25.9 - 34.0 pg [facility] MCHC (RBC) [Mass/Vol] 32.7 g/dL 29.9 - 35.2 g/dL [facility] MCV (RBC) [Entitic vol] 88.4 fL 80.0 - 94.0 fL [facility] MONOCYTES ABSOLUTE AUTO 0.4 [facility] Monocytes/100 WBC (Bld) 8.6 % 1.7 - 12.0 % [facility] NEUTROPHILS ABSOLUTE AUTO 2.7 [facility] Neutrophils/100 WBC (Bld) 55.4 % 43.0 - 75.0 % [facility] Platelet mean volume (Bld) [Entitic vol] 9.7 fL 9.5 - 13.5 fL [facility] TBH EO # 0.2 [facility] TB PLT 238 [facility] RBC 5.33 [facility] WBC 4.8 [facility] ALL CBC [...] fL Low 9.5 - 13.5 fL [facility] EO # 0.2 [facility] PLT 222 [facility] RBC 5.34 [facility] WBC 5 [facility] [...] fL Low 9.5 - 13.5 fL [facility] EO # 0.1 [facility] PLT 225 [facility] RBC 5.33 [facility] WBC 4.8 [facility] ALL CBC WITH AUTO DIFFon BASOPHILS ABSOLUTE AUTO 0.0 [facility] Basophils/100 WBC (Bld) 0.6 % 0.2 - 2.0 % [facility] Eosinophils/100 WBC (Bld) 3.2 % 0.9 - 7.0 % [facility] Erythrocyte distribution width (RBC) [Ratio] 12.4 % 11.0 - 15.0 % [facility] Hematocrit (Bld) [Volume fraction] 48.1 % 42.0 - 54.0 % [facility] Hemoglobin (Bld) [Mass/Vol] 15.8 g/dL 14.0 - 18.0 g/dL [facility] IMMATURE GRANULOCYTES ABS AUTO 0.01 [facility] Immature granulocytes/100 WBC (Bld) 0.2 % 0.0 - 0.5 % [facility] LYMPHOCYTES ABSOLUTE AUTO 1.4 [facility] Lymphocytes/100 WBC (Bld) 28.5 % 20.5 - 60.0 % [facility] MCH (RBC) [Entitic mass] 28.8 pg 25.9 - 34.0 pg [facility] MCHC (RBC) [Mass/Vol] 32.8 g/dL 29.9 - 35.2 g/dL [facility] MCV (RBC) [Entitic vol] 87.8 fL 80.0 - 94.0 fL [facility] MONOCYTES ABSOLUTE AUTO 0.4 [facility] Monocytes/100 WBC (Bld) 8.6 % 1.7 - 12.0 % [facility] NEUTROPHILS ABSOLUTE AUTO 2.9 [facility] Neutrophils/100 WBC (Bld) 58.9 % 43.0 - 75.0 % [facility] Platelet mean volume (Bld) [Entitic vol] 9.8 fL 9.5 - 13.5 fL [facility] EO # 0.2 [facility] PLT 240 [facility] RBC 5.48 [facility] WBC 5.0 [facility] ALL CBC WITH AUTO DIFFon BASOPHILS ABSOLUTE AUTO 0.0 [facility] Basophils/100 WBC (Bld) 0.7 % 0.2 - 2.0 % [facility] Eosinophils/100 WBC (Bld) 2.7 % 0.9 - 7.0 % [facility] Erythrocyte distribution width (RBC) [Ratio] 12.4 % 11.0 - 15.0 % [facility] Hematocrit (Bld) [Volume fraction] 47.4 % 42.0 - 54.0 % [facility] Hemoglobin (Bld) [Mass/Vol] 15.6 g/dL 14.0 - 18.0 g/dL [facility] IMMATURE GRANULOCYTES ABS AUTO 0.01 [facility] Immature granulocytes/100 WBC (Bld) 0.2 % 0.0 - 0.5 % [facility] LYMPHOCYTES ABSOLUTE AUTO 1.3 [facility] Lymphocytes/100 WBC (Bld) 29.6 % 20.5 - 60.0 % [facility] MCH (RBC) [Entitic mass] 28.8 pg 25.9 - 34.0 pg [facility] MCHC (RBC) [Mass/Vol] 32.9 g/dL 29.9 - 35.2 g/dL [facility] MCV (RBC) [Entitic vol] 87.5 fL 80.0 - 94.0 fL [facility] MONOCYTES ABSOLUTE AUTO 0.4 [facility] Monocytes/100 WBC (Bld) 8.1 % 1.7 - 12.0 % [facility] NEUTROPHILS ABSOLUTE AUTO 2.6 [facility] Neutrophils/100 WBC (Bld) 58.7 % 43.0 - 75.0 % [facility] Platelet mean volume (Bld) [Entitic vol] 9.9 fL 9.5 - 13.5 [facility]L [facility] PLT 240 [facility] RBC 5.42 [facility] WBC 4.5 [facility] URINE T PROTEIN CREAT RA TIOon 08-15-2024 CREATININE URINE RANDOM 123.63 mg/dL 20.00 - 300.00 mg/dL [facility] Interpretation and review of laboratory results Abnormal [facility] Protein (U) [Mass/Vol] 14.4 mg/dL High NINF - 11.9 mg/dL [facility] PROTEIN CREATININE RATIO URINE 0.12 [facility] ALL CBC WITH AUTO DIFFon BASOPHILS ABSOLUTE AUTO 0.0 [facility] Basophils/100 WBC (Bld) 0.8 % 0.2 - 2.0 % [facility] Eosinophils/100 WBC (Bld) 1.8 % 0.9 - 7.0 % [facility] Erythrocyte distribution width (RBC) [Ratio] 12.2 % 11.0 - 15.0 % [facility] Hematocrit (Bld) [Volume fraction] 47.2 % 42.0 - 54.0 % [facility] Hemoglobin (Bld) [Mass/Vol] 15.7 g/dL 14.0 - 18.0 g/dL [facility] IMMATURE GRANULOCYTES ABS AUTO 0.01 [facility] Immature granulocytes/100 WBC (Bld) 0.2 % 0.0 - 0.5 % [facility] LYMPHOCYTES ABSOLUTE AUTO 1.5 [facility] Lymphocytes/100 WBC (Bld) 29.9 % 20.5 - 60.0 % [facility] MCH (RBC) [Entitic mass] 29.1 pg 25.9 - 34.0 pg [facility] MCHC (RBC) [Mass/Vol] 33.3 g/dL 29.9 - 35.2 g/dL [facility] MCV (RBC) [Entitic vol] 87.4 fL 80.0 - 94.0 fL [facility] MONOCYTES ABSOLUTE AUTO 0.4 [facility] Monocytes/100 WBC (Bld) 8.8 % 1.7 - 12.0 % [facility] NEUTROPHILS ABSOLUTE AUTO 2.9 [facility] Neutrophils/100 WBC (Bld) 58.5 % 43.0 - 75.0 % [facility] Platelet mean volume (Bld) [Entitic vol] 10.0 fL 9.5 - 13.5 fL [facility] EO # 0.1 [facility] PLT 238 [facility] RBC 5.40 [facility] WBC 4.9 [facility] URINE T PROTEIN CREAT RA TIOon 08-02-2024 CREATININE URINE RANDOM 134.02 mg/dL 20.00 - 300.00 mg/dL [facility] Interpretation and review of laboratory results Abnormal [facility] Protein (U) [Mass/Vol] 13.8 mg/dL High NINF - 11.9 mg/dL [facility] PROTEIN CREATININE RATIO URINE 0.10 [facility] 36on 06-01-2024 36 Regarding echo perfo rmed on 05/18/2024: MD Cinda Batres MA Please tell him the echo was ok and showed a small residual fluid around the heart. This is significant improvement from before. Follow up as planned. Patient informed and he verbalized understanding. [facility] Office Visiton 05-13-2024 Follow-up visit [id number] George Styles Tray 1970 M Date Provider Department Center 05/13/2024 Júnior-MIGUEL CARDONA BESSY Domingoevpadmini Lopez Family History Problem Relation Age of Onset Coronary artery disease Mother Coronary artery disease Father Family Status - Relation Status Age at Mother Father Level of Service:72802 [place] OFFICE/OUTPATIENT ESTABLISHED LOW MDM 20 MIN Reason for Visit and Comments: Follow-up [562880] - Yearly follow up Normal [facility] B-TYPE NATRIURETIC PEPTIDE ( BRAIN)on 02-26-2024 Interpretation and review of laboratory results Normal [facility] Natriuretic peptide B (Bld) [Mass/Vol] 72 pg/mL 0 - 100 pg/mL [facility] CHEM 6 (LYTES, BUN CREA)on 0 02-26-2024 Anion gap [Moles/Vol] 13 mmol/L 7 - 17 mmol/L [facility] Chloride [Moles/Vol] 107 mmol/L 98 - 10 8 mmol/L [facility] CO2 [Moles/Vol] 25 mmol/L 21 - 31 mmol/L [facility] Creatinine [Mass/Vol] 1.23 mg/dL 0.70 - 1.30 mg/dL [facility] eGFR, CKD-EPI, Male 71 - PINF [facility] Comment on above: Reported eGFR is bas ed on the CKD-EPI 2020 equation using creatinine, age, and sex. Potassium [Moles/Vol] 4.2 mmol/L 3.5 - 5.0 mmol/L [facility] Sodium [Moles/Vol] 141 mmol/L 135 - 145 mmol/L [facility] Urea nitrogen [Mass/Vol] 17 mg/dL 7 - 25 mg/dL [facility] Urea nitrogen/Creatinine [Mass ratio] 14 mg/mg [facility] CBC,PLATELETSon 01-23-2024 Erythrocyte distribution width (RBC) [Ratio] 14.2 % 10.9 - 14.3 % [facility] Hematocrit (Bld) [Volume fraction] 37.0 % Low 39.6 - 48.8 % [facility] Hemoglobin (Bld) [Mass/Vol] 12.0 g/dL Low 13.4 - 16.8 g/dL [facility] Interpretation and review of laboratory results Abnormal [facility] MCH (RBC) [Entitic mass] 28.6 pg 26.1 - 33.3 pg [facility] MCHC (RBC) [Mass/Vol] 32.4 g/dL 31.9 - 36.5 g/dL [facility] MCV (RBC) [Entitic vol] 88.1 fL 79.0 - 94.5 fL [facility] Platelet mean volume (Bld) [Entitic vol] 10.4 fL 8.7 - 12.3 fL [facility] Platelets (Bld) [#/Vol] 170 10*3/uL 146 - 337 K/uL [facility] RBC (Bld) [#/Vol] 4.20 10*6/uL Low [facility] WBC (Bld) [#/Vol] 3.70 10*3/uL Low 3.73 - 10. 10 K/uL [facility] CHEM 7 (LYTES,BUN,CREA,GLUC) on 01-23-2024 Anion gap [Moles/Vol] 14 mmol/L 7 - 17 mmol/L [facility] Chloride [Moles/Vol] 105 mmol/L 98 - 10 8 mmol/L [facility] CO2 [Moles/Vol] 25 mmol/L 21 - 31 mmol/L [facility] Creatinine [Mass/Vol] 1.32 mg/dL High 0.70 - 1.30 mg/dL [facility] eGFR, CKD-EPI, Male 66 - PINF [facility] Comment on above: Reported eGFR is bas ed on the CKD-EPI 2020 equation using creatinine, age, and sex. Glucose [Mass/Vol] 94 mg/dL 70 - 99 mg/dL [facility] Osmolality Calc [Osmolality] 296 [facility] Potassium [Moles/Vol] 3.8 mmol/L 3.5 - 5.0 mmol/L [facility] Sodium [Moles/Vol] 140 mmol/L 135 - 145 mmol/L [facility] Urea nitrogen [Mass/Vol] 23 mg/dL 7 - 25 mg/dL [facility] Urea nitrogen/Creatinine [Mass ratio] 17 mg/mg [facility] GLUCOSE POCon 01-23-2024 Glucose [Mass/Vol] 88 mg/dL 70 - 99 mg/dL [facility] POC Sample Type CAPBL [facility] Test performed at ad dress of the patient encounter. [facility] Glucose [Mass/Vol] 191 mg/dL High 70 - 99 mg/dL [facility] Interpretation and review of laboratory results Abnormal [facility] POC Sample Type CAPBL [facility] Test performed at ad dress of the patient encounter. [facility] HEPATIC FUNCTION PANELon Albumin [Mass/Vol] 3.9 g/dL 3.5 - 5.0 g/dL [facility] ALP [Catalytic activity/Vol] 83 U/L 32 - 126 U/L [facility] ALT [Catalytic activity/Vol] 9 U/L Low 10 - 52 U/L [facility] AST [Catalytic activity/Vol] 17 U/L 10 - 39 U/L [facility] Bilirubin [Mass/Vol] 1.6 mg/dL High NINF - 1.5 mg/dL [facility] Bilirubin.direct [Mass/Vol] 0.4 mg/dL High NINF - 0.3 mg/dL [facility] Protein [Mass/Vol] 6.6 g/dL 6.4 - 8.3 g/dL [facility] ITRACONAZOLE LEVELon 024 Hydroxyitraconazole [Mass/Vol] 7.6 mcg/mL [facility] Comment on above: REFERENCE VALUE No therapeutic range established; activity and serum concentration are similar to parent drug. ADDITIONAL INFORMATION This test was developed and its performance characteristics determined by [facility] in a manner consistent with CLIA requirements. This test has not been cleared or approved by the U.S. Food and Drug Administration. Test Performed by: [facility] [address] [place] [address] Dip Filler: Rosendo Bose M.D. Ph.D.; CLIA# [id number] Itraconazole [Mass/Vol] 6.0 mcg/mL [facility] Comment on above: REFERENCE VALUE >0.5 (localized infection), >1.0 (systemic infection) [facility] MAGNESIUMon 01-23-2024 Interpretation and review of laboratory results Normal [facility] Magnesium [Mass/Vol] 1.8 mg/dL 1.6 - 2 .6 mg/dL [facility] No Panel Informationon 01-23 Interpretation and review of laboratory results Abnormal [facility] TACROLIMUS LEVEL, TROUGH (GA E DRUG LEVEL)on 01-23-2024 Interpretation and review of laboratory results Normal [facility] Tacrolimus (Bld) [Mass/Vol] 7.0 ng/mL Bone Marrow Transplant: 4.0-12.0, Therapeutic: 5.0-15.0 [facility] Method performed is a chemiluminescent microparticle immunoasssay on the [employer] i2000. The range is based on experience at [facility] and users should be aware that target concentrations vary widely depending on concomitant therapy, time post-transplant, and desired degree of immunosuppression. [facility] CARDIAC RHYTHM (SCANNED)on 0 01-22-2024 [facility] CBC,PLATELETSon 01-22-2024 Erythrocyte distribution width (RBC) [Ratio] 14.1 % 10.9 - 14.3 % [facility] Hematocrit (Bld) [Volume fraction] 41.5 % 39.6 - 48.8 % [facility] Hemoglobin (Bld) [Mass/Vol] 13.3 g/dL Low 13.4 - 16.8 g/dL [facility] Interpretation and review of laboratory results Abnormal [facility] MCH (RBC) [Entitic mass] 27.8 pg 26.1 - 33.3 pg [facility] MCHC (RBC) [Mass/Vol] 32.0 g/dL 31.9 - 36.5 g/dL [facility] MCV (RBC) [Entitic vol] 86.8 fL 79.0 - 94.5 fL [facility] Platelet mean volume (Bld) [Entitic vol] 10.5 fL 8.7 - 12.3 fL [facility] Platelets (Bld) [#/Vol] 186 10*3/uL 146 - 337 K/uL [facility] RBC (Bld) [#/Vol] 4.78 10*6/uL [facility] WBC (Bld) [#/Vol] 3.74 10*3/uL 3.73 - 10. 10 K/uL [facility] CHEM 7 (LYTES,BUN,CREA,GLUC) on 01-22-2024 Anion gap [Moles/Vol] 13 mmol/L 7 - 17 mmol/L [facility] Chloride [Moles/Vol] 109 mmol/L High 98 - 10 8 mmol/L [facility] CO2 [Moles/Vol] 23 mmol/L 21 - 31 mmol/L [facility] Creatinine [Mass/Vol] 1.10 mg/dL 0.70 - 1.30 mg/dL [facility] eGFR, CKD-EPI, Male 82 - PINF [facility] Comment on above: Reported eGFR is bas ed on the CKD-EPI 2020 equation using creatinine, age, and sex. Glucose [Mass/Vol] 84 mg/dL 70 - 99 mg/dL [facility] Interpretation and review of laboratory results Abnormal [facility] Osmolality Calc [Osmolality] 295 [facility] Potassium [Moles/Vol] 4.0 mmol/L 3.5 - 5.0 mmol/L [facility] Sodium [Moles/Vol] 141 mmol/L 135 - 145 mmol/L [facility] Urea nitrogen [Mass/Vol] 16 mg/dL 7 - 25 mg/dL [facility] Urea nitrogen/Creatinine [Mass ratio] 15 mg/mg [facility] MAGNESIUMon 01-22-2024 Interpretation and review of laboratory results Normal [facility] Magnesium [Mass/Vol] 2.0 mg/dL 1.6 - 2 .6 mg/dL [facility] No Panel Informationon 01-22 [facility] PT,INR,PTTon 01-22-2024 aPTT Coag (PPP) [Time] 29.2 s [facility] INR Coag (Bld) [Relative time] 1.1 {INR} 0.9 - 1.1 [facility] Interpretation and review of laboratory results Abnormal [facility] PT Coag (PPP) [Time] 14.3 s High [facility] TACROLIMUS LEVEL, TROUGH (GA E DRUG LEVEL)Ordered By: Sheree Jensen on 01-22-2024 Interpretation and review of laboratory results Normal [facility] Tacrolimus (Bld) [Mass/Vol] 7.9 ng/mL Bone Marrow Transplant: 4.0-12.0, Therapeutic: 5.0-15.0 [facility] Method performed is a chemiluminescent microparticle immunoasssay on the [employer] i2000. The range is based on experience at [facility] and users should be aware that target concentrations vary widely depending on concomitant therapy, time post-transplant, and desired degree of immunosuppression. [facility] TYPE AND SCREENon 01-22-2024 ABO/RH(D) TYPE Positive [facility] US Unspecified body regionOr dered By: Unassigned Pacs on 01-22-2024 [facility] Work Phone: [place] Unspecified body regionon 01-22-2024 Radiology Study observation (narrative) [facility] CBC,PLATELETSon 01-21-2024 Erythrocyte distribution width (RBC) [Ratio] 14.0 % 10.9 - 14.3 % [facility] Hematocrit (Bld) [Volume fraction] 39.4 % Low 39.6 - 48.8 % [facility] Hemoglobin (Bld) [Mass/Vol] 12.7 g/dL Low 13.4 - 16.8 g/dL [facility] Interpretation and review of laboratory results Abnormal [facility] MCH (RBC) [Entitic mass] 28.0 pg 26.1 - 33.3 pg [facility] MCHC (RBC) [Mass/Vol] 32.2 g/dL 31.9 - 36.5 g/dL [facility] MCV (RBC) [Entitic vol] 87.0 fL 79.0 - 94.5 fL [facility] Platelet mean volume (Bld) [Entitic vol] 10.2 fL 8.7 - 12.3 fL [facility] Platelets (Bld) [#/Vol] 157 10*3/uL 146 - 337 K/uL [facility] RBC (Bld) [#/Vol] 4.53 10*6/uL [facility] WBC (Bld) [#/Vol] 3.42 10*3/uL Low 3.73 - 10. 10 K/uL [facility] CHEM 7 (LYTES,BUN,CREA,GLUC) on 01-21-2024 Anion gap [Moles/Vol] 12 mmol/L 7 - 17 mmol/L [facility] Chloride [Moles/Vol] 107 mmol/L 98 - 10 8 mmol/L [facility] CO2 [Moles/Vol] 26 mmol/L 21 - 31 mmol/L [facility] Creatinine [Mass/Vol] 1.11 mg/dL 0.70 - 1.30 mg/dL [facility] eGFR, CKD-EPI, Male 80 - PINF [facility] Comment on above: Reported eGFR is bas ed on the CKD-EPI 2020 equation using creatinine, age, and sex. Glucose [Mass/Vol] 93 mg/dL 70 - 99 mg/dL [facility]ality] [facility] Potassium [Moles/Vol] 3.9 mmol/L 3.5 - 5.0 mmol/L [facility] Sodium [Moles/Vol] 141 mmol/L 135 - 145 mmol/L [facility] Urea nitrogen [Mass/Vol] 15 mg/dL 7 - 25 mg/dL [facility] Urea nitrogen/Creatinine [Mass ratio] 14 mg/mg [facility] Cardiac catheterization stud yOrdered By: Kelvin Donohue on 01-21-2024 Body surface area Derived from formula 2.08 m2 [facility] Work Phone: [facility] Work Phone: Cardiac catheterization stud [...] with fistula occlusion Kelvin Donohue MD, MPH Housekeeping Room Inspector of Internal Medicine. Section of Advanced Heart Failure and Transplantation Division of Cardiovascular Diseases [facility] [email or web address] 01-21-2024 Interpretation and review of laboratory results Abnormal [facility] Magnesium [Mass/Vol] 1.5 mg/dL Low 1.6 - 2 .6 mg/dL [facility] No Panel Informationon 01-21 [facility] TACROLIMUS LEVEL, TROUGH (GA E DRUG LEVEL)on 01-21-2024 Interpretation and review of laboratory results Normal [facility] Tacrolimus (Bld) [Mass/Vol] 7.2 ng/mL Bone Marrow Transplant: 4.0-12.0, Therapeutic: 5.0-15.0 [facility] Method performed is a chemiluminescent microparticle immunoasssay on the [employer] i2000. The range is based on experience at [facility] and users should be aware that target concentrations vary widely depending on concomitant therapy, time post-transplant, and desired degree of immunosuppression. [facility] CBC,PLATELETSon 01-20-2024 Erythrocyte distribution width (RBC) [Ratio] 13.8 % 10.9 - 14.3 % [facility] Hematocrit (Bld) [Volume fraction] 38.9 % Low 39.6 - 48.8 % [facility] Hemoglobin (Bld) [Mass/Vol] 12.5 g/dL Low 13.4 - 16.8 g/dL [facility] Interpretation and review of laboratory results Abnormal [facility] MCH (RBC) [Entitic mass] 28.0 pg 26.1 - 33.3 pg [facility] MCHC (RBC) [Mass/Vol] 32.1 g/dL 31.9 - 36.5 g/dL [facility] MCV (RBC) [Entitic vol] 87.2 fL 79.0 - 94.5 fL [facility] Platelet mean volume (Bld) [Entitic vol] 10.2 fL 8.7 - 12.3 fL [facility] Platelets (Bld) [#/Vol] 166 10*3/uL 146 - 337 K/uL [facility] RBC (Bld) [#/Vol] 4.46 10*6/uL [facility] WBC (Bld) [#/Vol] 3.79 10*3/uL 3.73 - 10. 10 K/uL [facility] CHEM 7 (LYTES,BUN,CREA,GLUC) on 01-20-2024 Anion gap [Moles/Vol] 12 mmol/L 7 - 17 mmol/L [facility] Chloride [Moles/Vol] 105 mmol/L 98 - 10 8 mmol/L [facility] CO2 [Moles/Vol] 28 mmol/L 21 - 31 mmol/L [facility] Creatinine [Mass/Vol] 1.12 mg/dL 0.70 - 1.30 mg/dL [facility] eGFR, CKD-EPI, Male 80 - PINF [facility] Comment on above: Reported eGFR is bas ed on the CKD-EPI 2020 equation using creatinine, age, and sex. Glucose [Mass/Vol] 88 mg/dL 70 - 99 mg/dL [facility] Osmolality Calc [Osmolality] 294 [facility] Potassium [Moles/Vol] 3.8 mmol/L 3.5 - 5.0 mmol/L [facility] Sodium [Moles/Vol] 141 mmol/L 135 - 145 mmol/L [facility] Urea nitrogen [Mass/Vol] 15 mg/dL 7 - 25 mg/dL [facility] Urea nitrogen/Creatinine [Mass ratio] 13 mg/mg [facility] Cardiac catheterization stud yon 01-20-2024 [facility] Radiology Study observation (narrative) [facility] Radiology Study observation (narrative) [facility] EBV BY PCR, QUANTITATIVE,BLO ODOrdered By: Charlotte Jensen on 01-20-2024 EBV DNA ESTELITA+probe (Unsp spec) [#/Vol] NINF [facility] Interpretation and review of laboratory results Normal [facility] This test was perfor med using a real time PCR assay. The dynamic range for this assay is 1000-5,000,000 IU/mL. A result <1000 IU/mL does not rule out the presence of EBV DNA in quantities below the sensitivity of this assay. This test was developed and its performance characteristics determined by [facility]. It has not been cleared or approved by the FDA. The laboratory is regulated under CLIA as qualified to perform high-complexity testing. This test is used for clinical purposes. It should not be regarded as investigational or for research. [facility] HEPATIC FUNCTION PANELon Albumin [Mass/Vol] 3.7 g/dL 3.5 - 5.0 g/dL [facility] ALP [Catalytic activity/Vol] 73 U/L 32 - 126 U/L [facility] ALT [Catalytic activity/Vol] 12 U/L 10 - 52 U/L [facility] AST [Catalytic activity/Vol] 19 U/L 10 - 39 U/L [facility] Bilirubin [Mass/Vol] 2.1 mg/dL High NINF - 1.5 mg/dL [facility] Bilirubin.direct [Mass/Vol] 0.5 mg/dL High NINF - 0.3 mg/dL [facility] [facility] Interpretation and review of laboratory results Abnormal [facility] Protein [Mass/Vol] 6.1 g/dL Low 6.4 - 8.3 g/dL [facility] MAGNESIUMon 01-20-2024 Interpretation and review of laboratory results Normal [facility] Magnesium [Mass/Vol] 1.6 mg/dL 1.6 - 2 .6 mg/dL [facility] No Panel Informationon 01-20 [facility] POCT CO-OXIMETRYon Hemoglobin (Bld) [Mass/Vol] 12.8 g/dL Low 13.4 - 16.8 g/dL [facility] Interpretation and review of laboratory results Abnormal [facility] Oxyhemoglobin 69 % Low 94 - 98 % [facility] Ordering physician notified. Test performed at address of the patient encounter. [facility] Hemoglobin (Bld) [Mass/Vol] 13.3 g/dL Low 13.4 - 16.8 g/dL [facility] Interpretation and review of laboratory results Abnormal [facility] Oxyhemoglobin 69 % Low 94 - 98 % [facility] Ordering physician notified. Test performed at address of the patient encounter. [facility] PT,INR,PTTon 01-20-2024 aPTT Coag (PPP) [Time] 30.6 s [facility] INR Coag (Bld) [Relative time] 1.2 {INR} High 0.9 - 1.1 [facility] Interpretation and review of laboratory results Abnormal [facility] PT Coag (PPP) [Time] 15.5 s High [facility] TACROLIMUS LEVEL, TROUGH (GA E DRUG LEVEL)Ordered By: Yanira Marcum on 01-20-2024 Interpretation and review of laboratory results Normal [facility] Tacrolimus (Bld) [Mass/Vol] 7.7 ng/mL Bone Marrow Transplant: 4.0-12.0, Therapeutic: 5.0-15.0 [facility] Method performed is a chemiluminescent microparticle immunoasssay on the [employer] Managed Care Director i2000. The range is based on experience at [facility] and users should be aware that target concentrations vary widely depending on concomitant therapy, time post-transplant, and desired degree of immunosuppression. [facility] CBC,PLATELETSon 01-19-2024 Erythrocyte distribution width (RBC) [Ratio] 13.9 % 10.9 - 14.3 % [facility] Hematocrit (Bld) [Volume fraction] 37.5 % Low 39.6 - 48.8 % [facility] Hemoglobin (Bld) [Mass/Vol] 12.1 g/dL Low 13.4 - 16.8 g/dL [facility] Interpretation and review of laboratory results Abnormal [facility] MCH (RBC) [Entitic mass] 28.3 pg 26.1 - 33.3 pg [facility] MCHC (RBC) [Mass/Vol] 32.3 g/dL 31.9 - 36.5 g/dL [facility] MCV (RBC) [Entitic vol] 87.8 fL 79.0 - 94.5 fL [facility] Platelet mean volume (Bld) [Entitic vol] 10.4 fL 8.7 - 12.3 fL [facility] Platelets (Bld) [#/Vol] 163 10*3/uL 146 - 337 K/uL [facility] RBC (Bld) [#/Vol] 4.27 10*6/uL Low [facility] WBC (Bld) [#/Vol] 3.69 10*3/uL Low 3.73 - 10. 10 K/uL [facility] CHEM 7 (LYTES,BUN,CREA,GLUC) on 01-19-2024 Anion gap [Moles/Vol] 14 mmol/L 7 - 17 mmol/L [facility] Chloride [Moles/Vol] 106 mmol/L 98 - 10 8 mmol/L [facility] CO2 [Moles/Vol] 24 mmol/L 21 - 31 mmol/L [facility] Creatinine [Mass/Vol] 1.13 mg/dL 0.70 - 1.30 mg/dL [facility] eGFR, CKD-EPI, Male 79 - PINF [facility] Comment on above: Reported eGFR is bas ed on the CKD-EPI 2020 equation using creatinine, age, and sex. Glucose [Mass/Vol] 86 mg/dL 70 - 99 mg/dL [facility]olality] [facility] Potassium [Moles/Vol] 3.8 mmol/L 3.5 - 5.0 mmol/L [facility] Sodium [Moles/Vol] 140 mmol/L 135 - 145 mmol/L [facility] Urea nitrogen [Mass/Vol] 16 mg/dL 7 - 25 mg/dL [facility] Urea nitrogen/Creatinine [Mass ratio] 14 mg/mg [facility] HISTOPLASMA AND BLASTOMYCES ANTIGEN, ENZYME IMMUNOASSAY, SERMon 01-19-2024 Histoplasma/Blastomy antonia Ag Result Not detected Not Detected [facility] Comment on above: No antigen from Hist oplasma or Blastomyces detected. False negative results may occur depending on extent of disease, and/or site of infection. Repeat testing on a new specimen if clinically indicated. Histoplasma/Blastomy antonia Ag Value Not detected ng/mL [facility] Comment on above: ADDITIONAL INFORMATION This test was developed and its performance characteristics determined by [facility] in a manner consistent with CLIA requirements. This test has not been cleared or approved by the U.S. Food and Drug Administration. Test Performed by: [facility] - [address] [address] Dip Filler: Rosendo Bose M.D. Ph.D.; CLIA# [id number] [facility] MAGNESIUMon 01-19-2024 Interpretation and review of laboratory results Normal [facility] Magnesium [Mass/Vol] 1.8 mg/dL 1.6 - 2 .6 mg/dL [facility] No Panel Informationon 01-19 [facility] TACROLIMUS LEVEL, TROUGH (GA E DRUG LEVEL)Ordered By: Raymundo Mehta on 01-19-2024 Interpretation and review of laboratory results Normal [facility] Tacrolimus (Bld) [Mass/Vol] 6.8 ng/mL Bone Marrow Transplant: 4.0-12.0, Therapeutic: 5.0-15.0 [facility] Method performed is a chemiluminescent microparticle immunoasssay on the [employer] Managed Care Director i2000. The range is based on experience at [facility] and users should be aware that target concentrations vary widely depending on concomitant therapy, time post-transplant, and desired degree of immunosuppression. [facility] US AV fistulaOrdered By: Diana Reyes on 01-19-2024 [facility] Work Phone: US AV fistulaon 01-19-2024 Radiology Study observation (narrative) [facility] AFP TUMOR MARKEROrdered By: Francisca Alaniz on 01-18-2024 AFP.tumor marker [Mass/Vol] ng/mL NINF - 8.1 ng/mL [facility] Comment on above: This test was perfor med on the [employer] Immunoassay platform by [employer] which is a two-site sandwich chemiluminescent immunoassay. It is important to note that assays using different manufacturers and/or methods may not be comparable. Interpretation and review of laboratory results Normal [facility] CBC,PLATELETSon 01-18-2024 Erythrocyte distribution width (RBC) [Ratio] 13.9 % 10.9 - 14.3 % [facility] Hematocrit (Bld) [Volume fraction] 38.4 % Low 39.6 - 48.8 % [facility] Hemoglobin (Bld) [Mass/Vol] 12.1 g/dL Low 13.4 - 16.8 g/dL [facility] Interpretation and review of laboratory results Abnormal [facility] MCH (RBC) [Entitic mass] 27.8 pg 26.1 - 33.3 pg [facility] MCHC (RBC) [Mass/Vol] 31.5 g/dL Low 31.9 - 36.5 g/dL [facility] MCV (RBC) [Entitic vol] 88.3 fL 79.0 - 94.5 fL [facility] Platelet mean volume (Bld) [Entitic vol] 10.4 fL 8.7 - 12.3 fL [facility] Platelets (Bld) [#/Vol] 183 10*3/uL 146 - 337 K/uL [facility] RBC (Bld) [#/Vol] 4.35 10*6/uL Low [facility] WBC (Bld) [#/Vol] 3.66 10*3/uL Low 3.73 - 10. 10 K/uL [facility] CHEM 7 (LYTES,BUN,CREA,GLUC) on 01-18-2024 Anion gap [Moles/Vol] 11 mmol/L 7 - 17 mmol/L [facility] Chloride [Moles/Vol] 108 mmol/L 98 - 10 8 mmol/L [facility] CO2 [Moles/Vol] 26 mmol/L 21 - 31 mmol/L [facility] Creatinine [Mass/Vol] 1.00 mg/dL 0.70 - 1.30 mg/dL [facility] eGFR, CKD-EPI, Male - PINF [facility] Comment on above: Reported eGFR is bas ed on the CKD-EPI 2020 equation using creatinine, age, and sex. Glucose [Mass/Vol] 89 mg/dL 70 - 99 mg/dL [facility] Osmolality Calc [Osmolality] [facility] Potassium [Moles/Vol] 3.9 mmol/L 3.5 - 5.0 mmol/L [facility] Sodium [Moles/Vol] 141 mmol/L 135 - 145 mmol/L [facility] Urea nitrogen [Mass/Vol] 16 mg/dL 7 - 25 mg/dL [facility] Urea nitrogen/Creatinine [Mass ratio] 16 mg/mg [facility] Cardiac echo study Procedure Ordered By: Gian Carlos on 01-18-2024 Ao ASC index 1.63 cm/m2 [facility] Work Phone: Ao peak meliton 1.46 m/s [facility] Work Phone: Ao SOV index 1.56 cm/m2 [facility] Work Phone: Ao STJ index 1.25 cm/m2 [facility] Work Phone: Ao VTI 35.74 cm [facility] Work Phone: Ascending aorta 3.39 cm [facility] Work Phone: AV LVOT peak gradient 4 mmHg [facility] Work Phone: AV mean gradient 5 mmHg [facility] Work Phone: AV peak gradient 9 mmHG [facility] Work Phone: AV valve area 3.09 cm2 [facility] Work Phone: [facility]ocity [facility]: VEGA (continuity Vmax) 3.01 cm2 [facility] Work Phone: VEGA (continuity VTI) 3.09 cm2 [facility] Work Phone: VEGA index (continuity Vmax) 1.45 m/s [facility] Work Phone: VEGA index (continuity VTI) 1.49 cm2/m2 [facility] Work Phone: Avg e' pk meliton 0.07 m/s [facility] Work Phone: Avg E/e' ratio 19.45 [facility] Work Phone: Body surface area Derived from formula 2.08 m2 [facility] Work Phone: BP EF 62 % [facility] Work Phone: DI (Vmax) 0.73 [facility] Work Phone: DI (VTI) 0.74 m/2 [facility] Work Phone: E wave decelartion time 180.38 msec [facility] Work Phone: e' lateral pk meliton 0.0789 m/s [facility] Work [facility]: e' lateral pk meliton 0.08 m/s [facility] Work Phone: e' septal pk meliton 0.0653 m/s [facility] Work Phone: e' septal pk meliton 0.07 m/s [facility] Work Phone: E/A ratio 2.67 [facility] Work Phone: E/e' lateral ratio 17.62 [facility] Work Phone: E/e' septal ratio 21.29 [facility] Work Phone: EF SP 2CH 66 [facility] Work Phone: EF SP 4CH 58 [facility] Work Phone: FS 28 % 28 - 44 % [facility] Work Phone: IVC ostium 2.30 cm [facility] Work Phone: IVS 1.11 cm [facility] Work Phone: LA AREA 2CH 24.36 cm2 [facility] Work Phone: LA area 4CH 20.36 cm2 [facility] Work Phone: LA ESV BP (MOD) 64 [facility]: LA ESV BP (MOD) index 31 mL/m2 [facility] Work Phone: LA ESV SP 2CH (MOD) 76 mL [facility] Work Phone: LA ESV SP 4CH (MOD) 53 mL [facility] Work Phone: LV EDV BP 180 mL [facility] Work Phone: LV EDV SP 2CH 190 mL [facility] Work Phone: LV EDV SP 4CH 166 mL [facility] Work Phone: LV ESV BP 69 mL [facility] Work Phone: LV ESV SP 2CH 65 mL [facility] Work Phone: LV ESV SP 4CH 70 mL [facility] Work Phone: LV mass 254.73 g [facility] Work Phone: LV Mass Index 122.5 g/m2 [facility] Work Phone: LV RWT 0.42 [facility] Work Phone: LV stroke volume BP (ml) 111 mL [facility] Work Phone: LV stroke volume index BP 53.37 mL/m2 [facility] Work Phone: [phone] LVIDD 5.53 cm [facility] Work Phone: LVIDS 3.97 cm [facility] Work Phone: LVOT area 4.15 cm2 [facility] Work Phone: LVOT diameter 2.30 cm [facility] Work Phone: LVOT peak meliton 1.06 m/s [facility] Work Phone: LVOT peak VTI 26.61 cm [facility] Work Phone: LVOT stroke volume 111 cm3 [facility] Work Phone: LVOT stroke volume index 53.13 ml/m2 [facility] Work Phone: Mr max meliton 4.21 m/s [facility] Work Phone: MR VTI 134.50 cm [facility] Work Phone: MV mean gradient 3 mmHg [facility] Work Phone: MV peak gradient 11 mmHg [facility] Work Phone: MV pk A meliton 0.52 m/s [facility] Work Phone: MV pk E meliton 1.39 m/s [facility] Work Phone: MV stenosis pressure 1/2 time 58.56 ms [facility] Work Phone: MV valve area by continuity eq 2.93 cm2 [facility] Work Phone: MV valve area p 1/2 method 3.76 cm2 [facility] Work Phone: MV VTI 37.70 cm [facility] Work Phone: MVA (continuity VTI) 2.92 cm [facility] Work Phone: OSU AV VTI RATIO PRE STRESS 0.74 [facility] Work Phone: OSU ECHO LV BIPLANE SYSTOLIC VOLUME INDEX 33.17 mL/m2 [facility] Work Phone: OSU ECHO LV BP DIASTOLIC VOLUME INDEX 86.54 mL/m2 [facility] Work Phone: [facility] ECHO MR PEAK GRADIENT 70.94 mmHg [facility] Work Phone: PW 1.16 cm [facility] Work Phone: RA area 4CH (MOD) 14.50 cm2 [facility] Work Phone: RA vol index 4CH (MOD) 18.27 mL/m2 [facility] Work Phone: Right atrium volume 4 chamber method of disks 38 mL [facility] Work Phone: RV Area diastolic 33.20 cm2 [facility] Work Phone: RV Area systolic 21.30 cm2 [facility] Work Phone: RV basal diam 4.52 cm [facility] Work Phone: RV Fractional area change 35.8 % [facility] Work Phone: RV long diam 8.96 cm [facility] Work Phone: RV mid diam 3.70 cm [facility] Work Phone: RV S' 22.01 cm/s [facility] Work Phone: RVOT peak gradient 4 mmHg [facility] Work Phone: RVOT peak meliton 0.96 m/s [facility] Work Phone: RVOT peak VTI 20.86 cm [facility] Work Phone: Sinus 3.24 cm [facility] Work Phone: STJ 2.61 cm [facility] Work Phone: Stroke Volume 111 cm/mL [facility] Work Phone: Stroke volume index 53 [facility] Work Phone: TAPSE 2.19 cm [facility] Work Phone: [facility] Work Phone: Cardiac echo study [...] echocardiography study was performed. Imaging system used: [employer]. Indications Indications for study: shortness of breath. [facility] Radiology Study observation (narrative) [facility] HEPATIC FUNCTION PANELon Albumin [Mass/Vol] 3.5 g/dL 3.5 - 5.0 g/dL [facility] ALP [Catalytic activity/Vol] 70 U/L 32 - 126 U/L [facility] ALT [Catalytic activity/Vol] 8 U/L Low 10 - 52 U/L [facility] AST [Catalytic activity/Vol] 20 U/L 10 - 39 U/L [facility] Bilirubin [Mass/Vol] 1.7 mg/dL High NINF - 1.5 mg/dL [facility] Bilirubin.direct [Mass/Vol] 0.4 mg/dL High NINF - 0.3 mg/dL [facility] Protein [Mass/Vol] 6.0 g/dL Low 6.4 - 8.3 g/dL [facility] MAGNESIUMon 01-18-2024 Magnesium [Mass/Vol] 1.5 mg/dL Low 1.6 - 2 .6 mg/dL [facility] No Panel Informationon 01-18 Interpretation and review of laboratory results Abnormal [facility] PT,INR,PTTon 01-18-2024 aPTT Coag (PPP) [Time] 30.0 s [facility] INR Coag (Bld) [Relative time] 1.1 {INR} 0.9 - 1.1 [facility] Interpretation and review of laboratory results Abnormal [facility] PT Coag (PPP) [Time] 14.5 s High [facility] TSH W/FT4 REFLEXon Interpretation and review of laboratory results Normal [facility] TSH Qn 2.660 m[IU]/L [facility] DARYL AURIS SCREEN BY PCRO rdered By: Mynor Alejandro on 01-17-2024 Daryl auris Screen by PCR Not detected Not Detected [facility] Interpretation and review of laboratory results Normal [facility] This test was perfor med using a real-time PCR assay. This test was developed, and its performance characteristics determined by [facility]. It has not been cleared or approved by the FDA. The laboratory is regulated under CLIA as qualified to perform high-complexity testing. This test is used for clinical purposes. It should not be regarded as investigational or for research. [facility] CBC,PLATELETSon 01-17-2024 Erythrocyte distribution width (RBC) [Ratio] 14.0 % 10.9 - 14.3 % [facility] Hematocrit (Bld) [Volume fraction] 37.2 % Low 39.6 - 48.8 % [facility] Hemoglobin (Bld) [Mass/Vol] 12.0 g/dL Low 13.4 - 16.8 g/dL [facility] Interpretation and review of laboratory results Abnormal [facility] MCH (RBC) [Entitic mass] 27.9 pg 26.1 - 33.3 pg [facility] MCHC (RBC) [Mass/Vol] 32.3 g/dL 31.9 - 36.5 g/dL [facility] MCV (RBC) [Entitic vol] 86.5 fL 79.0 - 94.5 fL [facility] Platelet mean volume (Bld) [Entitic vol] 10.5 fL 8.7 - 12.3 fL [facility] Platelets (Bld) [#/Vol] 159 10*3/uL 146 - 337 K/uL [facility] RBC (Bld) [#/Vol] 4.30 10*6/uL Low [facility] WBC (Bld) [#/Vol] 3.69 10*3/uL Low 3.73 - 10. 10 K/uL [facility] CHEM 7 (LYTES,BUN,CREA,GLUC) on 01-17-2024 Anion gap [Moles/Vol] 13 mmol/L 7 - 17 mmol/L [facility] Chloride [Moles/Vol] 109 mmol/L High 98 - 10 8 mmol/L [facility] CO2 [Moles/Vol] 21 mmol/L 21 - 31 mmol/L [facility] Creatinine [Mass/Vol] 1.04 mg/dL 0.70 - 1.30 mg/dL [facility] eGFR, CKD-EPI, Male 87 - PINF [facility] Comment on above: Reported eGFR is bas ed on the CKD-EPI 2020 equation using creatinine, age, and sex. Glucose [Mass/Vol] 82 mg/dL 70 - 99 mg/dL [facility] Osmolality Calc [Osmolality] 292 [facility] Potassium [Moles/Vol] 4.4 mmol/L 3.5 - 5.0 mmol/L [facility] Sodium [Moles/Vol] 139 mmol/L 135 - 145 mmol/L [facility] Urea nitrogen [Mass/Vol] 17 mg/dL 7 - 25 mg/dL [facility] Urea nitrogen/Creatinine [Mass ratio] 16 mg/mg [facility] CT Abdomen and Pelvis [...] Severe atrophy of the bilateral [place] kidney is without hydronephrosis. Right lower quadrant [...] Severe atrophy of the bilateral [place] kidney is without hydronephrosis. Right lower quadrant [...] the middle lobe. Trace left pleural effusion. [facility] Radiology Study observation (narrative) [facility] HEPATIC FUNCTION PANELon Albumin [Mass/Vol] 3.5 g/dL 3.5 - 5.0 g/dL [facility] ALP [Catalytic activity/Vol] 73 U/L 32 - 126 U/L [facility] ALT [Catalytic activity/Vol] 7 U/L Low 10 - 52 U/L [facility] AST [Catalytic activity/Vol] 25 U/L 10 - 39 U/L [facility] Bilirubin [Mass/Vol] 1.8 mg/dL High NINF - 1.5 mg/dL [facility] Bilirubin.direct [Mass/Vol] 0.3 mg/dL High NINF - 0.3 mg/dL [facility] Protein [Mass/Vol] 6.0 g/dL Low 6.4 - 8.3 g/dL [facility] MAGNESIUMon 01-17-2024 Interpretation and review of laboratory results Normal [facility] Magnesium [Mass/Vol] 1.7 mg/dL 1.6 - 2 .6 mg/dL [facility] No Panel Informationon 01-17 Interpretation and review of laboratory results Abnormal [facility] PT,INR,PTTon 01-17-2024 aPTT Coag (PPP) [Time] 29.9 s [facility] INR Coag (Bld) [Relative time] 1.1 {INR} 0.9 - 1.1 [facility] Interpretation and review of laboratory results Abnormal [facility] PT Coag (PPP) [Time] 14.5 s High [facility] B-TYPE NATRIURETIC PEPTIDE ( BRAIN)on 01-16-2024 Interpretation and review of laboratory results Abnormal [facility] Natriuretic peptide B (Bld) [Mass/Vol] 212 pg/mL High 0 - 100 pg/mL [facility] CALCIUMon 01-16-2024 Calcium [Mass/Vol] 8.5 mg/dL Low 8.6 - 10. 5 mg/dL [facility] CBC AND ELECTRONIC DIFFon Basophils (Bld) [#/Vol] K/uL 0.00 - 0.09 K/uL [facility] Basophils/100 WBC (Bld) 0.6 % [facility] Differential cell count method Nom (Bld) Electronic Differential [facility] Eosinophils (Bld) [#/Vol] 0.09 10*3/uL 0.00 - 0.48 K/uL [facility] Eosinophils/100 WBC (Bld) 2.5 % [facility] Erythrocyte distribution width (RBC) [Ratio] 14.0 % 10.9 - 14.3 % [facility] Hematocrit (Bld) [Volume fraction] 37.4 % Low 39.6 - 48.8 % [facility] Hemoglobin (Bld) [Mass/Vol] 12.1 g/dL Low 13.4 - 16.8 g/dL [facility] Immature granulocytes (Bld) [#/Vol] K/uL NINF - 0.07 K/uL [facility] Immature granulocytes/100 WBC (Bld) 0.3 % [facility] Interpretation and review of laboratory results Abnormal [facility] Lymphocytes (Bld) [#/Vol] 1.16 10*3/uL 0.83 - 3.57 K/uL [facility] Lymphocytes/100 WBC (Bld) 32.0 % [facility] MCH (RBC) [Entitic mass] 28.4 pg 26.1 - 33.3 pg [facility] MCHC (RBC) [Mass/Vol] 32.4 g/dL 31.9 - 36.5 g/dL [facility] MCV (RBC) [Entitic vol] 87.8 fL 79.0 - 94.5 fL [facility] Monocytes (Bld) [#/Vol] 0.43 10*3/uL 0.24 - 0.93 K/uL [facility] Monocytes/100 WBC (Bld) 11.9 % [facility] Neutrophils (Bld) [#/Vol] 1.91 10*3/uL 1.57 - 6.19 K/uL [facility] Nucleated RBC/100 WBC (Bld) [Ratio] 0.0 % [facility] Platelet mean volume (Bld) [Entitic vol] 10.1 fL 8.7 - 12.3 fL [facility] Platelets (Bld) [#/Vol] 155 10*3/uL 146 - 337 K/uL [facility] RBC (Bld) [#/Vol] 4.26 10*6/uL Low [facility] Segmented neutrophils/100 WBC (Bld) 52.7 % [facility] WBC (Bld) [#/Vol] 3.62 10*3/uL Low 3.73 - 10. 10 K/uL [facility] CHEM 7 (LYTES,BUN,CREA,GLUC) on 01-16-2024 Anion gap [Moles/Vol] 11 mmol/L 7 - 17 mmol/L [facility] Chloride [Moles/Vol] 108 mmol/L 98 - 10 8 mmol/L [facility] CO2 [Moles/Vol] 24 mmol/L 21 - 31 mmol/L [facility] Creatinine [Mass/Vol] 1.04 mg/dL 0.70 - 1.30 mg/dL [facility] eGFR, CKD-EPI, Male 87 - PINF [facility] Comment on above: Reported eGFR is bas ed on the CKD-EPI 2020 equation using creatinine, age, and sex. Glucose [Mass/Vol] 95 mg/dL 70 - 99 mg/dL [facility] Osmolality Calc [Osmolality] 293 [facility] Potassium [Moles/Vol] 4.0 mmol/L 3.5 - 5.0 mmol/L [facility] Sodium [Moles/Vol] 139 mmol/L 135 - 145 mmol/L [facility] Urea nitrogen [Mass/Vol] 19 mg/dL 7 - 25 mg/dL [facility] Urea nitrogen/Creatinine [Mass ratio] 18 mg/mg [facility] D-DIMER,QUANTITATIVEOrdered By: Shaji Kelly on 01-16-2024 Fibrin D-dimer FEU (PPP) [Mass/Vol] 0.67 High [facility] Comment on above: The D-Dimer assay is intended for use in conjuction with a clinical pretest probability (PTP) assessment model to exclude pulmonary embolism (PE) and as an aid in the diagnosis of Deep Vein Thrombosis (DVT) in outpatients suspected of PE or DVT. For the assay in use at [facility] ([facility]), a cutoff of <0.50 mcg/mL has a Negative Predictive Value of 99.7% for exclusion of DVT in low and moderate PTP patients. Interpretation and review of laboratory results Abnormal [facility] HEPATIC FUNCTION PANELon Albumin [Mass/Vol] 3.7 g/dL 3.5 - 5.0 g/dL [facility] ALP [Catalytic activity/Vol] 70 U/L 32 - 126 U/L [facility] ALT [Catalytic activity/Vol] 8 U/L Low 10 - 52 U/L [facility] AST [Catalytic activity/Vol] 21 U/L 10 - 39 U/L [facility] Bilirubin [Mass/Vol] 1.9 mg/dL High NINF - 1.5 mg/dL [facility] Bilirubin.direct [Mass/Vol] 0.4 mg/dL High NINF - 0.3 mg/dL [facility] Protein [Mass/Vol] 6.1 g/dL Low 6.4 - 8.3 g/dL [facility] MAGNESIUMon 01-16-2024 Magnesium [Mass/Vol] 1.7 mg/dL 1.6 - 2 .6 mg/dL [facility] No Panel Informationon 01-16 Interpretation and review of laboratory results Abnormal [facility] Interpretation and review of laboratory results Normal [facility] PHOSPHATE, INORGANICon 01-16 Phosphate [Mass/Vol] 4.1 mg/dL 2.2 - 4 .6 mg/dL [facility] PT,INR,PTTon 01-16-2024 aPTT Coag (PPP) [Time] 29.6 s [facility] INR Coag (Bld) [Relative time] 1.2 {INR} High 0.9 - 1.1 [facility] Interpretation and review of laboratory results Abnormal [facility] PT Coag (PPP) [Time] 14.9 s High [facility] TACROLIMUS LEVEL, TROUGH (GA E DRUG LEVEL)Ordered By: Jimy Castillo on 01-16-2024 Interpretation and review of laboratory results Normal [facility] Tacrolimus (Bld) [Mass/Vol] 5.7 ng/mL Bone Marrow Transplant: 4.0-12.0, Therapeutic: 5.0-15.0 [facility] Method performed is a chemiluminescent microparticle immunoasssay on the [employer] Managed Care Director i2000. The range is based on experience at [facility] and users should be aware that target concentrations vary widely depending on concomitant therapy, time post-transplant, and desired degree of immunosuppression. [facility] US.doppler Abdominal vessels on 01-16-2024 IMPRESSION: [...] pleural effusion. Trace right upper quadrant ascites. [facility] Radiology Study observation (narrative) [facility] US.doppler Abdominal vessels Ordered By: Iona Duran on 01-16-2024 [facility] Work Phone: XR Chest PA and [...] Normal IMPRESSION IMPRESSION: Moderate right pleural effusion. [facility] Radiology Study observation (narrative) [facility] XR Chest PA and LateralOrder ed By: Daisha Patterson on 01-16-2024 [facility] Work Phone: ALL CBC WITH [...] fL [facility] TBH EO # 0.1 [facility] PLT 180 [facility] TB RBC 4.93 [facility] WBC 4.0 [facility] [...] vol] 9.8 fL 9.5 - 13.5 [facility]L [facility] PLT 180 [facility] RBC 5.01 [facility] WBC 3.9 Low [facility] CHEM 7 (LYTES,BUN,CREA,GLUC) on 09-11-2023 Anion gap [Moles/Vol] 13 mmol/L 7 - 17 mmol/L [facility] Chloride [Moles/Vol] 111 mmol/L High 98 - 10 8 mmol/L [facility] CO2 [Moles/Vol] 20 mmol/L Low 21 - 31 mmol/L [facility] Creatinine [Mass/Vol] 1.13 mg/dL 0.70 - 1.30 mg/dL [facility] eGFR, CKD-EPI, Male 79 - PINF [facility] Glucose [Mass/Vol] 109 mg/dL High 70 - 99 mg/dL [facility] Interpretation and review of laboratory results Abnormal [facility] Osmolality Calc [Osmolality] 295 [facility] Potassium [Moles/Vol] 4.3 mmol/L 3.5 - 5.0 mmol/L [facility] Sodium [Moles/Vol] 140 mmol/L 135 - 145 mmol/L [facility] Urea nitrogen [Mass/Vol] 16 mg/dL 7 - 25 mg/dL [facility] Urea nitrogen/Creatinine [Mass ratio] 14 mg/mg [facility] GLUCOSE POCon 09-11-2023 Glucose [Mass/Vol] 108 mg/dL High 70 - 99 mg/dL [facility] Interpretation and review of laboratory results Abnormal [facility] POC Sample Type CAPBL [facility] Legionella sp identified Org specific cx Nom (Unsp spec)on 09-11-2023 Bacteria identified Cx Nom (Unsp spec) NO GROWTH DAY 7 OF 7 [facility] MAGNESIUMon 09-11-2023 Interpretation and review of laboratory results Normal [facility] Magnesium [Mass/Vol] 1.6 mg/dL 1.6 - 2 .6 mg/dL [facility] No Panel Informationon 09-11 [facility] TACROLIMUS LEVEL, TROUGH (GA E DRUG LEVEL)on 09-11-2023 Interpretation and review of laboratory results Normal [facility] Tacrolimus (Bld) [Mass/Vol] 11.5 ng/mL [facility] CBC,PLATELETSon 09-10-2023 Erythrocyte distribution width (RBC) [Ratio] 13.9 % 10.9 - 14.3 % [facility] Hematocrit (Bld) [Volume fraction] 40.0 % 39.6 - 48.8 % [facility] Hemoglobin (Bld) [Mass/Vol] 12.7 g/dL Low 13.4 - 16.8 g/dL [facility] Interpretation and review of laboratory results Abnormal [facility] MCH (RBC) [Entitic mass] 27.3 pg 26.1 - 33.3 pg [facility] MCHC (RBC) [Mass/Vol] 31.8 g/dL Low 31.9 - 36.5 g/dL [facility] MCV (RBC) [Entitic vol] 86.0 fL 79.0 - 94.5 fL [facility] Platelet mean volume (Bld) [Entitic vol] 9.5 fL 8.7 - 12.3 fL [facility] Platelets (Bld) [#/Vol] 225 10*3/uL 146 - 337 K/uL [facility] RBC (Bld) [#/Vol] 4.65 10*6/uL [facility] WBC (Bld) [#/Vol] 6.52 10*3/uL 3.73 - 10. 10 K/uL [facility] CHEM 7 (LYTES,BUN,CREA,GLUC) on 09-10-2023 Anion gap [Moles/Vol] 13 mmol/L 7 - 17 mmol/L [facility] Chloride [Moles/Vol] 111 mmol/L High 98 - 10 8 mmol/L [facility] CO2 [Moles/Vol] 20 mmol/L Low 21 - 31 mmol/L [facility] Creatinine [Mass/Vol] 1.27 mg/dL 0.70 - 1.30 mg/dL [facility] eGFR, CKD-EPI, Male 69 - PINF [facility] Glucose [Mass/Vol] 100 mg/dL High 70 - 99 mg/dL [facility] Osmolality Calc [Osmolality] 293 [facility] Potassium [Moles/Vol] 4.4 mmol/L 3.5 - 5.0 mmol/L [facility] Sodium [Moles/Vol] 140 mmol/L 135 - 145 mmol/L [facility] Urea nitrogen [Mass/Vol] 12 mg/dL 7 - 25 mg/dL [facility] Urea nitrogen/Creatinine [Mass ratio] 9 mg/mg [facility] HEPATIC FUNCTION PANELon Albumin [Mass/Vol] 3.3 g/dL Low 3.5 - 5.0 g/dL [facility] ALP [Catalytic activity/Vol] 143 U/L High 32 - 126 U/L [facility] ALT [Catalytic activity/Vol] 28 U/L 10 - 52 U/L [facility] AST [Catalytic activity/Vol] 29 U/L 10 - 39 U/L [facility] Bilirubin [Mass/Vol] 0.9 mg/dL NINF - 1.5 mg/dL [facility] Bilirubin.direct [Mass/Vol] 0.2 mg/dL NINF - 0.3 mg/dL [facility] Protein [Mass/Vol] 6.8 g/dL 6.4 - 8.3 g/dL [facility] MAGNESIUMon 09-10-2023 Interpretation and review of laboratory results Normal [facility] Magnesium [Mass/Vol] 1.9 mg/dL 1.6 - 2 .6 mg/dL [facility] No Panel Informationon 09-10 Interpretation and review of laboratory results Abnormal [facility] TACROLIMUS LEVEL, TROUGH (GA E DRUG LEVEL)Ordered By: Jimy Castillo on 09-10-2023 Interpretation and review of laboratory results Normal [facility] Tacrolimus (Bld) [Mass/Vol] 11.8 ng/mL [facility] CHEM 7 (LYTES,BUN,CREA,GLUC) on 09-09-2023 Anion gap [Moles/Vol] 14 mmol/L 7 - 17 mmol/L [facility] Chloride [Moles/Vol] 113 mmol/L High 98 - 10 8 mmol/L [facility] CO2 [Moles/Vol] 18 mmol/L Low 21 - 31 mmol/L [facility] Creatinine [Mass/Vol] 1.03 mg/dL 0.70 - 1.30 mg/dL [facility] eGFR, CKD-EPI, Male 88 - PINF [facility] Glucose [Mass/Vol] 106 mg/dL High 70 - 99 mg/dL [facility] Interpretation and review of laboratory results Abnormal [facility] Osmolality Calc [Osmolality] 294 [facility] Potassium [Moles/Vol] 4.0 mmol/L 3.5 - 5.0 mmol/L [facility] Sodium [Moles/Vol] 141 mmol/L 135 - 145 mmol/L [facility] Urea nitrogen [Mass/Vol] 10 mg/dL 7 - 25 mg/dL [facility] Urea nitrogen/Creatinine [Mass ratio] 10 mg/mg [facility] MAGNESIUMon 09-09-2023 Magnesium [Mass/Vol] 1.6 mg/dL 1.6 - 2 .6 mg/dL [facility] No Panel Informationon 09-09 Interpretation and review of laboratory results Normal [facility] PHOSPHATE, INORGANICon 09-09 Phosphate [Mass/Vol] 3.8 mg/dL 2.2 - 4 .6 mg/dL [facility] TACROLIMUS LEVEL, TROUGH (GA E DRUG LEVEL)on 09-09-2023 Interpretation and review of laboratory results Normal [facility] Tacrolimus (Bld) [Mass/Vol] 9.2 ng/mL [facility] CBC,PLATELETSon 09-08-2023 Erythrocyte distribution width (RBC) [Ratio] 13.6 % 10.9 - 14.3 % [facility] Hematocrit (Bld) [Volume fraction] 36.1 % Low 39.6 - 48.8 % [facility] Hemoglobin (Bld) [Mass/Vol] 11.6 g/dL Low 13.4 - 16.8 g/dL [facility] Interpretation and review of laboratory results Abnormal [facility] MCH (RBC) [Entitic mass] 27.4 pg 26.1 - 33.3 pg [facility] MCHC (RBC) [Mass/Vol] 32.1 g/dL 31.9 - 36.5 g/dL [facility] MCV (RBC) [Entitic vol] 85.1 fL 79.0 - 94.5 fL [facility] Platelet mean volume (Bld) [Entitic vol] 9.5 fL 8.7 - 12.3 fL [facility] Platelets (Bld) [#/Vol] 182 10*3/uL 146 - 337 K/uL [facility] RBC (Bld) [#/Vol] 4.24 10*6/uL Low [facility] WBC (Bld) [#/Vol] 4.59 10*3/uL 3.73 - 10. 10 K/uL [facility] CHEM 7 (LYTES,BUN,CREA,GLUC) on 09-08-2023 Anion gap [Moles/Vol] 12 mmol/L 7 - 17 mmol/L [facility] Chloride [Moles/Vol] 113 mmol/L High 98 - 10 8 mmol/L [facility] CO2 [Moles/Vol] 21 mmol/L 21 - 31 mmol/L [facility] Creatinine [Mass/Vol] 1.14 mg/dL 0.70 - 1.30 mg/dL [facility] eGFR, CKD-EPI, Male 78 - PINF [facility] Glucose [Mass/Vol] 107 mg/dL High 70 - 99 mg/dL [facility] Osmolality Calc [Osmolality] 296 [facility] Potassium [Moles/Vol] 3.9 mmol/L 3.5 - 5.0 mmol/L [facility] Sodium [Moles/Vol] 142 mmol/L 135 - 145 mmol/L [facility] Urea nitrogen [Mass/Vol] 11 mg/dL 7 - 25 mg/dL [facility] Urea nitrogen/Creatinine [Mass ratio] 10 mg/mg [facility] HEPATIC FUNCTION PANELon Albumin [Mass/Vol] 2.9 g/dL Low 3.5 - 5.0 g/dL [facility] ALP [Catalytic activity/Vol] 133 U/L High 32 - 126 U/L [facility] ALT [Catalytic activity/Vol] 23 U/L 10 - 52 U/L [facility] AST [Catalytic activity/Vol] 23 U/L 10 - 39 U/L [facility] Bilirubin [Mass/Vol] 0.8 mg/dL NINF - 1.5 mg/dL [facility] Bilirubin.direct [Mass/Vol] 0.2 mg/dL NINF - 0.3 mg/dL [facility] Protein [Mass/Vol] 5.9 g/dL Low 6.4 - 8.3 g/dL [facility] MAGNESIUMon 09-08-2023 Interpretation and review of laboratory results Normal [facility] Magnesium [Mass/Vol] 1.8 mg/dL 1.6 - 2 .6 mg/dL [facility] No Panel Informationon 09-08 Interpretation and review of laboratory results Abnormal [facility] PHOSPHATE, INORGANICon 09-08 Interpretation and review of laboratory results Normal [facility] Phosphate [Mass/Vol] 4.1 mg/dL 2.2 - 4 .6 mg/dL [facility] TACROLIMUS LEVEL, TROUGH (GA E DRUG LEVEL)on 09-08-2023 Interpretation and review of laboratory results Normal [facility] Tacrolimus (Bld) [Mass/Vol] 8.5 ng/mL [facility] CBC,PLATELETSon 09-07-2023 Erythrocyte distribution width (RBC) [Ratio] 13.5 % 10.9 - 14.3 % [facility] Hematocrit (Bld) [Volume fraction] 37.1 % Low 39.6 - 48.8 % [facility] Hemoglobin (Bld) [Mass/Vol] 11.9 g/dL Low 13.4 - 16.8 g/dL [facility] Interpretation and review of laboratory results Abnormal [facility] MCH (RBC) [Entitic mass] 27.7 pg 26.1 - 33.3 pg [facility] MCHC (RBC) [Mass/Vol] 32.1 g/dL 31.9 - 36.5 g/dL [facility] MCV (RBC) [Entitic vol] 86.5 fL 79.0 - 94.5 fL [facility] Platelet mean volume (Bld) [Entitic vol] 9.6 fL 8.7 - 12.3 fL [facility] Platelets (Bld) [#/Vol] 176 10*3/uL 146 - 337 K/uL [facility] RBC (Bld) [#/Vol] 4.29 10*6/uL Low [facility] WBC (Bld) [#/Vol] 4.10 10*3/uL 3.73 - 10. 10 K/uL [facility] CHEM 7 (LYTES,BUN,CREA,GLUC) on 09-07-2023 Anion gap [Moles/Vol] 13 mmol/L 7 - 17 mmol/L [facility] Chloride [Moles/Vol] 113 mmol/L High 98 - 10 8 mmol/L [facility] CO2 [Moles/Vol] 19 mmol/L Low 21 - 31 mmol/L [facility] Creatinine [Mass/Vol] 1.22 mg/dL 0.70 - 1.30 mg/dL [facility] eGFR, CKD-EPI, Male 72 - PINF [facility] Glucose [Mass/Vol] 107 mg/dL High 70 - 99 mg/dL [facility] Osmolality Calc [Osmolality] 295 [facility] Potassium [Moles/Vol] 3.9 mmol/L 3.5 - 5.0 mmol/L [facility] Sodium [Moles/Vol] 141 mmol/L 135 - 145 mmol/L [facility] Urea nitrogen [Mass/Vol] 13 mg/dL 7 - 25 mg/dL [facility] Urea nitrogen/Creatinine [Mass ratio] 11 mg/mg [facility] HEPATIC FUNCTION PANELon Albumin [Mass/Vol] 2.9 g/dL Low 3.5 - 5.0 g/dL [facility] ALP [Catalytic activity/Vol] 111 U/L 32 - 126 U/L [facility] ALT [Catalytic activity/Vol] 18 U/L 10 - 52 U/L [facility] AST [Catalytic activity/Vol] 23 U/L 10 - 39 U/L [facility] Bilirubin [Mass/Vol] 0.8 mg/dL NINF - 1.5 mg/dL [facility] Bilirubin.direct [Mass/Vol] 0.3 mg/dL High NINF - 0.3 mg/dL [facility] Protein [Mass/Vol] 6.0 g/dL Low 6.4 - 8.3 g/dL [facility] MAGNESIUMon 09-07-2023 Interpretation and review of laboratory results Normal [facility] Magnesium [Mass/Vol] 1.7 mg/dL 1.6 - 2 .6 mg/dL [facility] No Panel Informationon 09-07 Interpretation and review of laboratory results Abnormal [facility] PHOSPHATE, INORGANICon 09-07 Interpretation and review of laboratory results Normal [facility] Phosphate [Mass/Vol] 4.4 mg/dL 2.2 - 4 .6 mg/dL [facility] TACROLIMUS LEVEL, TROUGH (GA E DRUG LEVEL)Ordered By: Elizabeth Maldonado on 09-07-2023 Interpretation and review of laboratory results Normal [facility] Tacrolimus (Bld) [Mass/Vol] 7.8 ng/mL [facility] CBC,PLATELETSon 09-06-2023 Erythrocyte distribution width (RBC) [Ratio] 13.4 % 10.9 - 14.3 % [facility] Hematocrit (Bld) [Volume fraction] 38.4 % Low 39.6 - 48.8 % [facility] Hemoglobin (Bld) [Mass/Vol] 11.9 g/dL Low 13.4 - 16.8 g/dL [facility] Interpretation and review of laboratory results Abnormal [facility] MCH (RBC) [Entitic mass] 26.6 pg 26.1 - 33.3 pg [facility] MCHC (RBC) [Mass/Vol] 31.0 g/dL Low 31.9 - 36.5 g/dL [facility] MCV (RBC) [Entitic vol] 85.9 fL 79.0 - 94.5 fL [facility] Platelet mean volume (Bld) [Entitic vol] 9.7 fL 8.7 - 12.3 fL [facility] Platelets (Bld) [#/Vol] 181 10*3/uL 146 - 337 K/uL [facility] RBC (Bld) [#/Vol] 4.47 10*6/uL [facility] WBC (Bld) [#/Vol] 4.41 10*3/uL 3.73 - 10. 10 K/uL [facility] CHEM 7 (LYTES,BUN,CREA,GLUC) on 09-06-2023 Anion gap [Moles/Vol] 14 mmol/L 7 - 17 mmol/L [facility] Chloride [Moles/Vol] 109 mmol/L High 98 - 10 8 mmol/L [facility] CO2 [Moles/Vol] 19 mmol/L Low 21 - 31 mmol/L [facility] Creatinine [Mass/Vol] 1.26 mg/dL 0.70 - 1.30 mg/dL [facility] eGFR, CKD-EPI, Male 70 - PINF [facility] Glucose [Mass/Vol] 114 mg/dL High 70 - 99 mg/dL [facility] Osmolality Calc [Osmolality] 291 [facility] Potassium [Moles/Vol] 4.1 mmol/L 3.5 - 5.0 mmol/L [facility] Sodium [Moles/Vol] 138 mmol/L 135 - 145 mmol/L [facility] Urea nitrogen [Mass/Vol] 16 mg/dL 7 - 25 mg/dL [facility] Urea nitrogen/Creatinine [Mass ratio] 13 mg/mg [facility] HEPATIC FUNCTION PANELon Albumin [Mass/Vol] 3.0 g/dL Low 3.5 - 5.0 g/dL [facility] ALP [Catalytic activity/Vol] 115 U/L 32 - 126 U/L [facility] ALT [Catalytic activity/Vol] 25 U/L 10 - 52 U/L [facility] AST [Catalytic activity/Vol] 31 U/L 10 - 39 U/L [facility] Bilirubin [Mass/Vol] 1.0 mg/dL [facility] - 1.5 mg/dL [facility] Bilirubin.direct [Mass/Vol] 0.3 mg/dL High NINF - 0.3 mg/dL [facility] Protein [Mass/Vol] 6.3 g/dL Low 6.4 - 8.3 g/dL [facility] MAGNESIUMon 09-06-2023 Interpretation and review of laboratory results Normal [facility] Magnesium [Mass/Vol] 2.0 mg/dL 1.6 - 2 .6 mg/dL [facility] No Panel Informationon 09-06 Interpretation and review of laboratory results Abnormal [facility] TACROLIMUS LEVEL, TROUGH (GA E DRUG LEVEL)on 09-06-2023 Interpretation and review of laboratory results Normal [facility] Tacrolimus (Bld) [Mass/Vol] 6.7 ng/mL [facility] CBC,PLATELETSon 09-05-2023 Erythrocyte distribution width (RBC) [Ratio] 13.5 % 10.9 - 14.3 % [facility] Hematocrit (Bld) [Volume fraction] 35.6 % Low 39.6 - 48.8 % [facility] Hemoglobin (Bld) [Mass/Vol] 11.4 g/dL Low 13.4 - 16.8 g/dL [facility] Interpretation and review of laboratory results Abnormal [facility] MCH (RBC) [Entitic mass] 27.5 pg 26.1 - 33.3 pg [facility] MCHC (RBC) [Mass/Vol] 32.0 g/dL 31.9 - 36.5 g/dL [facility] MCV (RBC) [Entitic vol] 86.0 fL 79.0 - 94.5 fL [facility] Platelet mean volume (Bld) [Entitic vol] 10.0 fL 8.7 - 12.3 fL [facility] Platelets (Bld) [#/Vol] 170 10*3/uL 146 - 337 K/uL [facility] RBC (Bld) [#/Vol] 4.14 10*6/uL Low [facility] WBC (Bld) [#/Vol] 4.24 10*3/uL 3.73 - 10. 10 K/uL [facility] CHEM 7 (LYTES,BUN,CREA,GLUC) on 09-05-2023 Anion gap [Moles/Vol] 12 mmol/L 7 - 17 mmol/L [facility] Chloride [Moles/Vol] 107 mmol/L 98 - 10 8 mmol/L [facility] CO2 [Moles/Vol] 20 mmol/L Low 21 - 31 mmol/L [facility] Creatinine [Mass/Vol] 1.43 mg/dL High 0.70 - 1.30 mg/dL [facility] eGFR, CKD-EPI, Male 60 Low - PINF [facility] Glucose [Mass/Vol] 111 mg/dL High 70 - 99 mg/dL [facility] Osmolality Calc [Osmolality] 286 [facility] Potassium [Moles/Vol] 4.2 mmol/L 3.5 - 5.0 mmol/L [facility] Sodium [Moles/Vol] 135 mmol/L 135 - 145 mmol/L [facility] Urea nitrogen [Mass/Vol] 18 mg/dL 7 - 25 mg/dL [facility] Urea nitrogen/Creatinine [Mass ratio] 13 mg/mg [facility] CONTINUOUS CARDIAC MONITORIN G STRIPon 09-05-2023 [facility] HEPATIC FUNCTION PANELon Albumin [Mass/Vol] 2.8 g/dL Low 3.5 - 5.0 g/dL [facility] ALP [Catalytic activity/Vol] 103 U/L 32 - 126 U/L [facility] ALT [Catalytic activity/Vol] 26 U/L 10 - 52 U/L [facility] AST [Catalytic activity/Vol] 38 U/L 10 - 39 U/L [facility] Bilirubin [Mass/Vol] 0.9 mg/dL NINF - 1.5 mg/dL [facility] Bilirubin.direct [Mass/Vol] 0.1 mg/dL NINF - 0.3 mg/dL [facility] Protein [Mass/Vol] 6.1 g/dL Low 6.4 - 8.3 g/dL [facility] HISTOPLASMA ANTIGEN, FLUIDon 09-05-2023 FH SOURCE BAL RML [facility] Histo FLD interpretation Negative [facility] Histoplasma Antigen, FLUID Not detected ng/mL [facility] HISTOPLASMA CAPSULATUM/BLAST OMYCES SPECIES,PCR FLUIDon 09-05-2023 HISTO/BLASTO RESULT Negative Not Applicable [facility] Specimen source Nom (Unsp spec) BAL RML [facility] IMMUNOPHENOTYPING, TISSUE/FL UIDon 09-05-2023 BKR DX CODE Use Ordering [facility] Flow Interpretation See Comment [facility] Flow Interpreted by: Yossi Perla MD, PhD [facility] MAGNESIUMon 09-05-2023 Interpretation and review of laboratory results Normal [facility] Magnesium [Mass/Vol] 1.7 mg/dL 1.6 - 2 .6 mg/dL [facility] No Panel Informationon 09-05 Interpretation and review of laboratory results Abnormal [facility] TACROLIMUS LEVEL, TROUGH (GA E DRUG LEVEL)Ordered By: Raymundo Mehta on 09-05-2023 Interpretation and review of laboratory results Normal [facility] Tacrolimus (Bld) [Mass/Vol] 5.3 ng/mL [facility] ARTERIAL BLOOD GAS (FULL GOSS EL)on 09-04-2023 Base excess Calc (Bld) [Moles/Vol] -1.2000 mmol/L -3.0 - 3.0 mmol/L [facility] Calcium.ionized (Bld) [Mass/Vol] 4.79 mg/dL 4.60 - 5.30 mg/dL [facility] Carboxyhemoglobin (Bld) [Mass fraction] 0.7 % NINF - 1.5 % [facility] CO2 (Bld) [Partial pressure] 30 mm[Hg] Low [facility] Glucose [Mass/Vol] 159 mg/dL High 70 - 99 mg/dL [facility] HCO3 (Bld) [Moles/Vol] 22 mmol/L 22 - 28 mmol/L [facility] Hematocrit (Bld) [Volume fraction] 38.0 % Low 40.2 - 50.4 % [facility] Hemoglobin (Bld) [Mass/Vol] 12.6 g/dL Low 13.4 - 16.8 g/dL [facility] Interpretation and review of laboratory results Abnormal [facility] Lactate [Moles/Vol] 2.0 mmol/L High 0.5 - 1. 6 mmol/L [facility] Methemoglobin (Bld) [Mass fraction] 0.0 % NINF - 1.5 % [facility] Oxygen (Bld) [Partial pressure] 62 mm[Hg] Low [facility] Oxygen saturation in Blood 92 % Low 94 - 98 % [facility] Oxyhemoglobin 91 % Low 94 - 98 % [facility] pH (Bld) 7.48 [pH] High 7.35 - 7.45 [facility] Potassium [Moles/Vol] 4.2 mmol/L 3.5 - 5.0 mmol/L [facility] Sodium [Moles/Vol] 130 mmol/L Low 135 - 145 mmol/L [facility] Specimen source Nom (Unsp spec) Arterial [facility] Bacteria identified Respirat ory culture Nom (Unsp spec)on 09-04-2023 Bacteria identified Cx Nom (Unsp spec) NO GROWTH DAY 2 OF 2 [facility] Microscopic observation Other stain Nom (Unsp spec) Cytocentrifuge preparation [facility] Microscopic observation Other stain Nom (Unsp spec) Neutrophils, Rare [facility] Microscopic observation Other stain Nom (Unsp spec) Red Blood Cells Present [facility] Microscopic observation Other stain Nom (Unsp spec) No organisms seen [facility] Bacteria identified Respirat ory culture Nom (Unsp spec)Ordered By: Jose Salgado on 09-04-2023 Bacteria identified Cx Nom (Unsp spec) NO GROWTH DAY 2 OF 2 [facility] Microscopic observation Other stain Nom (Unsp spec) Cytocentrifuge preparation [facility] Microscopic observation Other stain Nom (Unsp spec) Neutrophils, Moderate [facility] Microscopic observation Other stain Nom (Unsp spec) Red Blood Cells Present [facility] Microscopic observation Other stain Nom (Unsp spec) No organisms seen [facility] CBC,PLATELETSon 09-04-2023 Erythrocyte distribution width (RBC) [Ratio] 13.2 % 10.9 - 14.3 % [facility] Hematocrit (Bld) [Volume fraction] 38.7 % Low 39.6 - 48.8 % [facility] Hemoglobin (Bld) [Mass/Vol] 12.3 g/dL Low 13.4 - 16.8 g/dL [facility] Interpretation and review of laboratory results Abnormal [facility] MCH (RBC) [Entitic mass] 27.9 pg 26.1 - 33.3 pg [facility] MCHC (RBC) [Mass/Vol] 31.8 g/dL Low 31.9 - 36.5 g/dL [facility] MCV (RBC) [Entitic vol] 87.8 fL 79.0 - 94.5 fL [facility] Platelet mean volume (Bld) [Entitic vol] 9.8 fL 8.7 - 12.3 fL [facility] Platelets (Bld) [#/Vol] 173 10*3/uL 146 - 337 K/uL [facility] RBC (Bld) [#/Vol] 4.41 10*6/uL [facility] WBC (Bld) [#/Vol] 4.57 10*3/uL 3.73 - 10. 10 K/uL [facility] CHEM 7 (LYTES,BUN,CREA,GLUC) on 09-04-2023 Anion gap [Moles/Vol] 16 mmol/L 7 - 17 mmol/L [facility] Chloride [Moles/Vol] 104 mmol/L 98 - 10 8 mmol/L [facility] CO2 [Moles/Vol] 18 mmol/L Low 21 - 31 mmol/L [facility] Creatinine [Mass/Vol] 1.22 mg/dL 0.70 - 1.30 mg/dL [facility] eGFR, CKD-EPI, Male 72 - PINF [facility] Glucose [Mass/Vol] 124 mg/dL High 70 - 99 mg/dL [facility] Osmolality Calc [Osmolality] 284 [facility] Potassium [Moles/Vol] 3.9 mmol/L 3.5 - 5.0 mmol/L [facility] Sodium [Moles/Vol] 134 mmol/L Low 135 - 145 mmol/L [facility] Urea nitrogen [Mass/Vol] 15 mg/dL 7 - 25 mg/dL [facility] Urea nitrogen/Creatinine [Mass ratio] 12 mg/mg [facility] CMV PCR,FLUIDS,URINE,EYE ETC on 09-04-2023 Specimen source Nom (Unsp spec) BAL LLL [facility] Specimen source Nom (Unsp spec) BAL RML [facility] HEPATIC FUNCTION PANELon Albumin [Mass/Vol] 3.0 g/dL Low 3.5 - 5.0 g/dL [facility] ALP [Catalytic activity/Vol] 112 U/L 32 - 126 U/L [facility] ALT [Catalytic activity/Vol] 22 U/L 10 - 52 U/L [facility] AST [Catalytic activity/Vol] 30 U/L 10 - 39 U/L [facility] Bilirubin [Mass/Vol] 1.2 mg/dL NINF - 1.5 mg/dL [facility] Bilirubin.direct [Mass/Vol] 0.4 mg/dL High NINF - 0.3 mg/dL [facility] Protein [Mass/Vol] 6.4 g/dL 6.4 - 8.3 g/dL [facility] LEGIONELLA PCRon 09-04-2023 Legionella sp rRNA Probe Ql (Unsp spec) Negative Not Applicable [facility] Specimen source Nom (Unsp spec) BAL RML [facility] Laboratory - Microbiology an d Antimicrobial susceptibilityon 09-04-2023 CMV DNA ESTELITA+probe Ql (Unsp spec) Negative Negative [facility] MAGNESIUMon 09-04-2023 Magnesium [Mass/Vol] 1.4 mg/dL Low 1.6 - 2 .6 mg/dL [facility] No Panel Informationon 09-04 Annotation comment [Interpretation] Narrative DNR [facility] PN Report Status DNR [facility] Pneumocystis jiroveci,PCR result Negative Not Applicable [facility] Interpretation and review of laboratory results Abnormal [facility] PNEUMOCYSTIS JIROVECI,PCRon 09-04-2023 Specimen source Nom (Unsp spec) BAL LLL [facility] Specimen source Nom (Unsp spec) BAL RML [facility] Portable XR Chest Viewson RADIOLOGY RADIOLOGY [facility] Radiology Study observation (narrative) [facility] Portable XR Chest ViewsOrder ed By: Joanie Nugent on 09-04-2023 [facility] Work Phone: TACROLIMUS LEVEL, TROUGH (GA E DRUG LEVEL)on 09-04-2023 Interpretation and review of laboratory results Abnormal [facility] Tacrolimus (Bld) [Mass/Vol] 3.6 ng/mL Low [facility] ASPERGILLUS ANTIGEN, BALon 1 Galactomannan Ag IA Qn (Unsp spec) [facility]0.500 [facility] Galactomannan Ag IA Qn (Unsp spec) <0.500 [facility] BAL CONSULTOrdered By: Noa Peralta on 09-03-2023 ALVEOLAR MACROPHAGES 32 % [facility] Work Phone: Bal comments Correlation with microbiology stains and cultures is recommended. [facility] Work Phone: Bal Diff Quik Stain Quality Check Acceptable [facility] Work Phone: BKR BAL INTERPRETATION Cellular specimen comprised of alveolar macrophages and small lymphocytes. No definitive microorganisms are observed. Moderate degenerative changes. [facility] Work Phone: BKR DX CODE Use Ordering [facility] Work Phone: Eosinophils Patterson stain Ql (Unsp spec) 0 % [facility] Work Phone: Lymphocytes/100 WBC (Bld) 57 % [facility] Work Phone: Neutrophils/100 WBC Manual cnt (Bronch spec) 11 % [facility] Work Phone: Pathologist review Jame (Unsp spec) [Interp] Leonardo Peralta MD [facility] Work Phone: [facility] Work Phone: BAL CONSULTon 09-03-2023 ALVEOLAR MACROPHAGES 33 % [facility] Bal comments Correlation with microbiology stains and cultures is recommended. Correlation with viral studies is recommended. [facility] Bal Diff Quik Stain Quality Check Acceptable [facility] BKR BAL INTERPRETATION Cellular specimen comprised of alveolar macrophages and small lymphocytes. No definitive microorganisms are observed. Rare degenerating cells with changes suggestive of viral cytopathic effect are noted. Moderate degenerative changes. [facility] BKR DX CODE Use Ordering [facility] Eosinophils Patterson stain Ql (Unsp spec) 0 % [facility] Lymphocytes/100 WBC (Bld) 49 % [facility] Neutrophils/100 WBC Manual cnt (Bronch spec) 18 % [facility] Pathologist review Jame (Unsp spec) [Interp] Leonardo Peralta MD [facility] BRONCHOSCOPYon 09-03-2023 LAB, [facility] CBC,PLATELETSon 09-03-2023 Erythrocyte distribution width (RBC) [Ratio] 13.4 % 10.9 - 14.3 % [facility] Hematocrit (Bld) [Volume fraction] 39.6 % 39.6 - 48.8 % [facility] Hemoglobin (Bld) [Mass/Vol] 12.8 g/dL Low 13.4 - 16.8 g/dL [facility] Interpretation and review of laboratory results Abnormal [facility] MCH (RBC) [Entitic mass] 27.8 pg 26.1 - 33.3 pg [facility] MCHC (RBC) [Mass/Vol] 32.3 g/dL 31.9 - 36.5 g/dL [facility] MCV (RBC) [Entitic vol] 85.9 fL 79.0 - 94.5 fL [facility] Platelet mean volume (Bld) [Entitic vol] 9.4 fL 8.7 - 12.3 fL [facility] Platelets (Bld) [#/Vol] 222 10*3/uL 146 - 337 K/uL [facility] RBC (Bld) [#/Vol] 4.61 10*6/uL [facility] WBC (Bld) [#/Vol] 4.36 10*3/uL 3.73 - 10. 10 K/uL [facility] CHEM 7 (LYTES,BUN,CREA,GLUC) on 09-03-2023 Anion gap [Moles/Vol] 12 mmol/L 7 - 17 mmol/L [facility] Chloride [Moles/Vol] 104 mmol/L 98 - 10 8 mmol/L [facility] CO2 [Moles/Vol] 24 mmol/L 21 - 31 mmol/L [facility] Creatinine [Mass/Vol] 1.20 mg/dL 0.70 - 1.30 mg/dL [facility] eGFR, CKD-EPI, Male 74 - PINF [facility] Glucose [Mass/Vol] 112 mg/dL High 70 - 99 mg/dL [facility] Osmolality Calc [Osmolality] 288 [facility] Potassium [Moles/Vol] 4.1 mmol/L 3.5 - 5.0 mmol/L [facility] Sodium [Moles/Vol] 136 mmol/L 135 - 145 mmol/L [facility] Urea nitrogen [Mass/Vol] 17 mg/dL 7 - 25 mg/dL [facility] Urea nitrogen/Creatinine [Mass ratio] 14 mg/mg [facility] CYTOLOGY, NON-GYNOrdered By: Sherice Jimenez on 09-03-2023 CYTOLOGIC DIAGNOSIS g1ildPPzJFYhiNCuATFwG1crtmB kWRYngBHcQ1LzozvgKIsaLA1tFA 8yoHbimLLzaSSvJHQiPzMce8yxs 474eOWcq9uqRUYMwmuzsQv2t0dq SDYWrZ0ku0q0qW04IZVmgA5ekGN yVXfdhkBjYUtjfqGqvmJeGke8CG Q7zIotUkblxWE2cRQixNM7ZVasr 8WjjWrmzIevXMH9ANEgBggnNLak rVV2gGQbsWtwzTHuMU2cc0iocCJ 0deGqXFT7lXpanTB1zZtwygpse1 qqsFU5zWX8FXwxbHH4SCktIkDgJ 4axAAYmkL0bT13cM3ieMSWfiBgs RSpmZEZtmLL0JBR7APCcy1nrINF zhFOpnLPbMeYdMHxsFzk8d2jfRS RwfY63sSCfcaG1eShrYZgfqOO7Z K11BHtkf0VkSDHpgMuxKBRayA3g YzIzXGxldmVsbmZjbjIzXGxldmV hpuAwZWrstlSau5LszuKkjCQ6YU tcuhPznGV1rBjmSFZfZ8G9M617Q NetphCexaMvKeLznin8JWXzjZvj bGlzdGxldmVsXGxldmVsbmZjMjN sqNY7VVhrAgAeWdXjtXJ9UEhtFb KadTT1TFnelKEwaZW9OMidcHY9Q Mj9WHp3TJwdLNyxWpx5nNpvfNK6 TZepcK7xCXEkL56aNxY3s8aduWZ 3tOX7QMfebSI6WQkfVmKmJ3erBR FryD2dI33aC7aePXBeqTacMTefA BDjlKS8QBD8HSBgz1upLFPfoINw hRGcMmHaNClfUkb3c1wyOCXsfJ7 0xJEakaD3eWenEJ42PLlzz3GzLX GdrEplZOZdjI7nZdHbSBtnmrPhv mZjbjIzXGxldmVsamMwXGxldmVs w5CwwcDdiVH0VDdtepUkqHQ1fCh xMDPlN8H8F228QDwbpcMqqrIrMq Qbsde1UJRzrKpxzYlkwNfqbfLjG AbcqlAkozLpOaAjbPC2AYtqUoEv ExQohUX6YZwyIfUdsVJ8SWvikMF qjTQ6FMdumSV5JJh7XNv9HVftVZ aqWpq3bOvdoJT1FGbslK6nDPGdK 16uVyL3v6bofSS3oKU8INzsqYS5 OTsnZuWbQ4vuBWNdeN9wH63pM2z yYNIceGhrEIsnRHZswZD9EUX4FK Scq3bpRHMrvZMacXNqNuDgGJopX jq1s7zlVXLteR08nKEyjpD9eZsp UK03DUdtr9LbNMMsmYgaWDZieX5 mYzIzXGxldmVsbmZjbjIzXGxldm ShuxTxQPtdlyTnp8KiydGsdSC5N ScfjcSapCE5cQmiDFIlD2G4K845 EFzxacAljkUhNgQyexe3WZZieJd cbGlzdGxldmVsXGxldmVsbmZjMj MgpEP2NNxmZjYmSrAzaFL9JRxiB sMozUN1PDdrtSTksAZ5AByhoQZ4 STj0MVd5ETlcPJeaQxu6kNwriMG 5IWaxaL2uUHRqN77rNgU0pL35JN jsvBfdoX66IZEbtIPjsBHwxHH0P SejlJcwdT39ZWJmpEXvGTjgh4Dm VSLpWlC4KBH2WWHxvHevkA35AXY obMBvU066ljYeMHfhLJ23ZXJroG TlubXgTiUmJTOurERttCJ1ULIvK G7ofxlkXHeiCVtyAZGcrjE1HQYw yWQgO9PsGMSyXX0gyovmFTT6WGi nXSDpQEP8JhOnMUCam3Nvxcp9Dh FioCs8b6taIZWlSLTmsHvet7ulI UJ1SLXqzSErN1focM6uOBDgVS6q tssnw0kbUHroTCmhENVlaKI2spC 6HTJjiQFqD0EycD6cBABoGLLtet QdiYvopU6yVzgtpmStYABrHXXNS fVTBj2XR6sNEGrWOJ3GIEZyGUDT DXaHJDMLJSOMMBkHD7BOFYtRBzW kYGTgFHMdV0jUT2gUS3vaOodrXt NpCPhyORPgKpWaJ7ItMXLjlizzW QHpPNZZHU0IFHEXQFYRMh0SLNX9 YMZlmksfuPI1RRvwrzKssDh4aMC uzWduvW8wNpcnvzQxMMFcYLHPig ODWXdgN94tzbWqT5UygKZcYPMeJ QdsME74qLDnKZKtaNDdGVw9wF3i SQlaaObueuDWjGWlzW1igsezYDr jZjBccGFyXGxpMFxsczBccGFyfQ == [facility] Work Phone: Case Report [facility] Work Phone: Clinical History u7nuqSRtMYTuwAAqNJNx K0qvhuP jIFHfrKLbB2BwzfonORbrKC0aTM 8oaYpazZEauTKzCDItBrFuz1zaj 972vTEvs6qdTOPNwngecLb1qRzp Q02ln7I2JbbtX1dtBZXpTYiiLWU pRNhcvAIhHKo1ZDTzjYYoxgErJw KnHJFbbQOrmCV9PIGoXC6uaeglA SwlUWueGGHdmhV9GGMqbCIzD0Cx SIJjQX0hjdgdYRP9RNcaGZAyYMJ 6OxNfIRTck1Rkwwg7DfRcaJq6f2 seFLYcGMUmsOdxf6jyYMA5EYDco XXtJ9fysM3dZHErBS5nmezbs3qk JNxkSTmkQEVnrCR9jxJ8YIWlbSN xU3JtuK7kLPTcYJPcmqCzzCpioK 5cZnMyMFxjZjEgUmVuYWwgdHJhb dGciPZdqW3cLBOdvh8= [facility] Work Phone: For Immediate Release to Patient's MyChart? Yes Yes [facility] Work Phone: Gross Description o1fxfXVjVBNdhTGbPTWm H6qlwlC aLBAwtABiU1RfijcpYGqmQF3cXB 5vqUfgsGPetVCkVVByGqRop1jeb 125bDZsc8nyRWFNichgnIb8mHsq L16yc7T6VfqbX46rhGFiOBE4RWV fGTLxcLYzDPIiUPJ4UVUjuMBqH3 zsGYKlVG3rludmYTzeASbuTECva NU3ANQfmYWmG6PoFSTbXQxlBGVa uta2VxMkVc9qbMSjnAoaXGgoWEB kXHBsYWluXGZzMjAgTExMIEJBTF loFWMcFKDudXWsARv8KWKieL4xq QZdaiUvoJJleH0dkQbbQYyjRKKm VLYKAUSkaJruFEVZWXClo1ZmwN5 ccGFyXHBhcmRccGFyXHBhcn0= [facility] Work Phone: [facility] Work Phone: HEPATIC FUNCTION PANELon Albumin [Mass/Vol] 3.2 g/dL Low 3.5 - 5.0 g/dL [facility] ALP [Catalytic activity/Vol] 118 U/L 32 - 126 U/L [facility] ALT [Catalytic activity/Vol] 25 U/L 10 - 52 U/L [facility] AST [Catalytic activity/Vol] 32 U/L 10 - 39 U/L [facility] Bilirubin [Mass/Vol] 1.0 mg/dL NINF - 1.5 mg/dL [facility] Bilirubin.direct [Mass/Vol] 0.3 mg/dL High NINF - 0.3 mg/dL [facility] Protein [Mass/Vol] 6.5 g/dL 6.4 - 8.3 g/dL [facility] HISTOPLASMA AND BLASTOMYCES ANTIGEN, ENZYME IMMUNOASSAY, SERMon 09-03-2023 Histoplasma/Blastomy antonia Ag Result Detected Critically abnormal Not Detected [facility] Histoplasma/Blastomy antonia Ag Value 5.3 ng/mL [facility] Interpretation and review of laboratory results Abnormal [facility] MAGNESIUMon 09-03-2023 Interpretation and review of laboratory results Normal [facility] Magnesium [Mass/Vol] 1.6 mg/dL 1.6 - 2 .6 mg/dL [facility] No Panel Informationon 09-03 Interpretation and review of laboratory results Abnormal [facility] PARVOVIRUS (B19) DNA, PCR, B LOODon 09-03-2023 PARVOVIRUS B19 BY RAPID PCR Not detected Not Detected [facility] GA SPEC SOURCE Whole Blood [facility] Portable XR Chest Viewson RADIOLOGY RADIOLOGY [facility] Radiology Study observation (narrative) [facility] Portable XR Chest ViewsOrder ed By: Lester Grove on 09-03-2023 [facility] Work Phone: ASPERGILLUS (GALACTOMANNAN), ANTIGENon 09-02-2023 Galactomannan Ag IA Qn <0.500 NINF [facility] ATYPICAL BACTERIAL PNEUMONIA ,PCROrdered By: Shari Contreras on 09-02-2023 B. parapertussis DNA ESTELITA+probe Ql (Unsp spec) Not detected Not Detected [facility] B. pertussis DNA ESTELITA+probe Ql (Unsp spec) Not detected Not Detected [facility] C. pneumoniae DNA ESTELITA+probe Ql (Unsp spec) Not detected Not Detected [facility] Interpretation and review of laboratory results Normal [facility] M. pneumoniae DNA ESTELITA+probe Ql (Unsp spec) Not detected Not Detected [facility] BRONCHOSCOPYon 09-02-2023 Radiology Study observation (narrative) [facility] Bacteria identified Cx Nom ( Bld)on 09-02-2023 Bacteria identified Cx Nom (Unsp spec) NO GROWTH DAY 5 OF 5 [facility] CBC,PLATELETSon 09-02-2023 Erythrocyte distribution width (RBC) [Ratio] 13.2 % 10.9 - 14.3 % [facility] Hematocrit (Bld) [Volume fraction] 39.9 % 39.6 - 48.8 % [facility] Hemoglobin (Bld) [Mass/Vol] 12.9 g/dL Low 13.4 - 16.8 g/dL [facility] Interpretation and review of laboratory results Abnormal [facility] MCH (RBC) [Entitic mass] 27.9 pg 26.1 - 33.3 pg [facility] MCHC (RBC) [Mass/Vol] 32.3 g/dL 31.9 - 36.5 g/dL [facility] MCV (RBC) [Entitic vol] 86.4 fL 79.0 - 94.5 fL [facility] Platelet mean volume (Bld) [Entitic vol] 9.5 fL 8.7 - 12.3 fL [facility] Platelets (Bld) [#/Vol] 210 10*3/uL 146 - 337 K/uL [facility] RBC (Bld) [#/Vol] 4.62 10*6/uL [facility] WBC (Bld) [#/Vol] 4.12 10*3/uL 3.73 - 10. 10 K/uL [facility] CHEM 7 (LYTES,BUN,CREA,GLUC) on 09-02-2023 Anion gap [Moles/Vol] 13 mmol/L 7 - 17 mmol/L [facility] Chloride [Moles/Vol] 105 mmol/L 98 - 10 8 mmol/L [facility] CO2 [Moles/Vol] 22 mmol/L 21 - 31 mmol/L [facility] Creatinine [Mass/Vol] 1.25 mg/dL 0.70 - 1.30 mg/dL [facility] eGFR, CKD-EPI, Male 70 - PINF [facility] Glucose [Mass/Vol] 105 mg/dL High 70 - 99 mg/dL [facility] Osmolality Calc [Osmolality] 287 [facility] Potassium [Moles/Vol] 4.3 mmol/L 3.5 - 5.0 mmol/L [facility] Sodium [Moles/Vol] 136 mmol/L 135 - 145 mmol/L [facility] Urea nitrogen [Mass/Vol] 16 mg/dL 7 - 25 mg/dL [facility] Urea nitrogen/Creatinine [Mass ratio] 13 mg/mg [facility] HEPATIC FUNCTION PANELon Albumin [Mass/Vol] 3.2 g/dL Low 3.5 - 5.0 g/dL [facility] ALP [Catalytic activity/Vol] 107 U/L 32 - 126 U/L [facility] ALT [Catalytic activity/Vol] 20 U/L 10 - 52 U/L [facility] AST [Catalytic activity/Vol] 31 U/L 10 - 39 U/L [facility] Bilirubin [Mass/Vol] 1.0 mg/dL NINF - 1.5 mg/dL [facility] Bilirubin.direct [Mass/Vol] 0.3 mg/dL High NINF - 0.3 mg/dL [facility] Protein [Mass/Vol] 6.6 g/dL 6.4 - 8.3 g/dL [facility] HISTOPLASMA ANTIGEN,URINEon 09-02-2023 H. capsulatum Ag (U) [Mass/Vol] Not detected ng/mL [facility] H. capsulatum Ag IA Ql (U) Not detected Not Detected [facility] HIV 1 AND 2 ANTIBODIES/P24 A NTIGENOrdered By: Wilma Luque on 09-02-2023 HIV 1+2 Ab+HIV1 p24 Ag IA Ql Non-Reactive Non Reactive [facility] Interpretation and review of laboratory results Normal [facility] MAGNESIUMon 09-02-2023 Interpretation and review of laboratory results Normal [facility] Magnesium [Mass/Vol] 1.7 mg/dL 1.6 - 2 .6 mg/dL [facility] No Panel Informationon 09-02 Interpretation and review of laboratory results Abnormal [facility] TACROLIMUS LEVEL, TROUGH (GA E DRUG LEVEL)on 09-02-2023 Interpretation and review of laboratory results Normal [facility] Tacrolimus (Bld) [Mass/Vol] 4.2 ng/mL [facility] CBC,PLATELETSon 09-01-2023 Erythrocyte distribution width (RBC) [Ratio] 13.4 % 10.9 - 14.3 % [facility] Hematocrit (Bld) [Volume fraction] 38.9 % Low 39.6 - 48.8 % [facility] Hemoglobin (Bld) [Mass/Vol] 12.7 g/dL Low 13.4 - 16.8 g/dL [facility] Interpretation and review of laboratory results Abnormal [facility] MCH (RBC) [Entitic mass] 27.6 pg 26.1 - 33.3 pg [facility] MCHC (RBC) [Mass/Vol] 32.6 g/dL 31.9 - 36.5 g/dL [facility] MCV (RBC) [Entitic vol] 84.6 fL 79.0 - 94.5 fL [facility] Platelet mean volume (Bld) [Entitic vol] 9.4 fL 8.7 - 12.3 fL [facility] Platelets (Bld) [#/Vol] 209 10*3/uL 146 - 337 K/uL [facility] RBC (Bld) [#/Vol] 4.60 10*6/uL [facility] WBC (Bld) [#/Vol] 4.41 10*3/uL 3.73 - 10. 10 K/uL [facility] CHEM 7 (LYTES,BUN,CREA,GLUC) on 09-01-2023 Anion gap [Moles/Vol] 14 mmol/L 7 - 17 mmol/L [facility] Chloride [Moles/Vol] 103 mmol/L 98 - 10 8 mmol/L [facility] CO2 [Moles/Vol] 21 mmol/L 21 - 31 mmol/L [facility] Creatinine [Mass/Vol] 1.16 mg/dL 0.70 - 1.30 mg/dL [facility] eGFR, CKD-EPI, Male 77 - PINF [facility] Glucose [Mass/Vol] 117 mg/dL High 70 - 99 mg/dL [facility] Osmolality Calc [Osmolality] 285 [facility] Potassium [Moles/Vol] 4.2 mmol/L 3.5 - 5.0 mmol/L [facility] Sodium [Moles/Vol] 134 mmol/L Low 135 - 145 mmol/L [facility] Urea nitrogen [Mass/Vol] 18 mg/dL 7 - 25 mg/dL [facility] Urea nitrogen/Creatinine [Mass ratio] 16 mg/mg [facility] CRYPTOCOCCAL ANTIGENon 09-01 Cryptococcus sp Ag Ql (S) Negative Negative [facility] Interpretation and review of laboratory results Normal [facility] HEPATIC FUNCTION PANELon Albumin [Mass/Vol] 3.3 g/dL Low 3.5 - 5.0 g/dL [facility] ALP [Catalytic activity/Vol] 112 U/L 32 - 126 U/L [facility] ALT [Catalytic activity/Vol] 21 U/L 10 - 52 U/L [facility] AST [Catalytic activity/Vol] 29 U/L 10 - 39 U/L [facility] Bilirubin [Mass/Vol] 1.0 mg/dL NINF - 1.5 mg/dL [facility] Bilirubin.direct [Mass/Vol] 0.2 mg/dL NINF - 0.3 mg/dL [facility] Protein [Mass/Vol] 6.8 g/dL 6.4 - 8.3 g/dL [facility] L. pneumophila 1 Ag IA Ql (U )Ordered By: Carolin Miles on 09-01-2023 Interpretation and review of laboratory results Normal [facility] LEGIONELLA URINARY AGOrdered By: Carolin Miles on 09-01-2023 L. pneumophila 1 Ag IA Ql (U) Negative Negative [facility] MAGNESIUMon 09-01-2023 Interpretation and review of laboratory results Normal [facility] Magnesium [Mass/Vol] 1.6 mg/dL 1.6 - 2 .6 mg/dL [facility] No Panel Informationon 09-01 Interpretation and review of laboratory results Abnormal [facility] CBC,PLATELETSon 08-31-2023 Erythrocyte distribution width (RBC) [Ratio] 13.3 % 10.9 - 14.3 % [facility] Hematocrit (Bld) [Volume fraction] 39.4 % Low 39.6 - 48.8 % [facility] Hemoglobin (Bld) [Mass/Vol] 12.8 g/dL Low 13.4 - 16.8 g/dL [facility] Interpretation and review of laboratory results Abnormal [facility] MCH (RBC) [Entitic mass] 27.6 pg 26.1 - 33.3 pg [facility] MCHC (RBC) [Mass/Vol] 32.5 g/dL 31.9 - 36.5 g/dL [facility] MCV (RBC) [Entitic vol] 85.1 fL 79.0 - 94.5 fL [facility] Platelet mean volume (Bld) [Entitic vol] 9.6 fL 8.7 - 12.3 fL [facility] Platelets (Bld) [#/Vol] 228 10*3/uL 146 - 337 K/uL [facility] RBC (Bld) [#/Vol] 4.63 10*6/uL [facility] WBC (Bld) [#/Vol] 4.77 10*3/uL 3.73 - 10. 10 K/uL [facility] CHEM 7 (LYTES,BUN,CREA,GLUC) on 08-31-2023 Anion gap [Moles/Vol] 13 mmol/L 7 - 17 mmol/L [facility] Chloride [Moles/Vol] 102 mmol/L 98 - 10 8 mmol/L [facility] CO2 [Moles/Vol] 23 mmol/L 21 - 31 mmol/L [facility] Creatinine [Mass/Vol] 1.37 mg/dL High 0.70 - 1.30 mg/dL [facility] eGFR, CKD-EPI, Male 62 - PINF [facility] Glucose [Mass/Vol] 112 mg/dL High 70 - 99 mg/dL [facility] Osmolality Calc [Osmolality] 284 [facility] Potassium [Moles/Vol] 4.4 mmol/L 3.5 - 5.0 mmol/L [facility] Sodium [Moles/Vol] 134 mmol/L Low 135 - 145 mmol/L [facility] Urea nitrogen [Mass/Vol] 16 mg/dL 7 - 25 mg/dL [facility] Urea nitrogen/Creatinine [Mass ratio] 12 mg/mg [facility] Abdomen and Pelvis WO con traston 08-31-2023 RADIOLOGY RAD[facility]OLOGY [facility] Rad[facility] Study observation (narrative) [facility] CT Abdomen and Pelvis WO con trastOrdered By: Chavez Larkin on 08-31-2023 [facility] Work Phone: CT Chest WO contraston 08-31 RADIOLOGY RADIOLOGY [facility] Radiology Study observation (narrative) [facility] CT Chest WO contrastOrdered By: Daisha Patterson on 08-31-2023 [facility] Work Phone: FERRITINon 08-31-2023 Ferritin [Mass/Vol] 409.0 ng/mL High 10.5 - 3 07.3 ng/mL [facility] Interpretation and review of laboratory results Abnormal [facility] HEPATIC FUNCTION PANELon Albumin [Mass/Vol] 3.3 g/dL Low 3.5 - 5.0 g/dL [facility] ALP [Catalytic activity/Vol] 113 U/L 32 - 126 U/L [facility] ALT [Catalytic activity/Vol] 25 U/L 10 - 52 U/L [facility] AST [Catalytic activity/Vol] 31 U/L 10 - 39 U/L [facility] Bilirubin [Mass/Vol] 1.1 mg/dL NINF - 1.5 mg/dL [facility] Bilirubin.direct [Mass/Vol] 0.3 mg/dL High NINF - 0.3 mg/dL [facility] Protein [Mass/Vol] 7.0 g/dL 6.4 - 8.3 g/dL [facility] MAGNESIUMon 08-31-2023 Interpretation and review of laboratory results Normal [facility] Magnesium [Mass/Vol] 1.7 mg/dL 1.6 - 2 .6 mg/dL [facility] No Panel Informationon 08-31 Interpretation and review of laboratory results Abnormal [facility] PROCALCITONINon 08-31-2023 Interpretation and review of laboratory results Normal [facility] Procalcitonin [Mass/Vol] 0.23 ng/mL NINF - 0.50 ng/mL [facility] TACROLIMUS LEVEL, TROUGH (GA E DRUG LEVEL)Ordered By: Yanira Marcum on 08-31-2023 Interpretation and review of laboratory results Normal [facility] Tacrolimus (Bld) [Mass/Vol] 5.9 ng/mL [facility] URINE CULTUREOrdered By: Jorge Lozano on 08-31-2023 Bacteria identified Cx Nom (Unsp spec) No Growth [facility] DARYL AURIS SCREEN BY PCRO rdered By: Mynor Alejandro on 08-30-2023 Daryl auris Screen by PCR Not detected Not Detected [facility] Interpretation and review of laboratory results Normal [facility] CBC,PLATELETSon 08-30-2023 Erythrocyte distribution width (RBC) [Ratio] 13.3 % 10.9 - 14.3 % [facility] Hematocrit (Bld) [Volume fraction] 41.3 % 39.6 - 48.8 % [facility] Hemoglobin (Bld) [Mass/Vol] 13.2 g/dL Low 13.4 - 16.8 g/dL [facility] Interpretation and review of laboratory results Abnormal [facility] MCH (RBC) [Entitic mass] 27.3 pg 26.1 - 33.3 pg [facility] MCHC (RBC) [Mass/Vol] 32.0 g/dL 31.9 - 36.5 g/dL [facility] MCV (RBC) [Entitic vol] 85.5 fL 79.0 - 94.5 fL [facility] Platelet mean volume (Bld) [Entitic vol] 9.2 fL 8.7 - 12.3 fL [facility] Platelets (Bld) [#/Vol] 235 10*3/uL 146 - 337 K/uL [facility] RBC (Bld) [#/Vol] 4.83 10*6/uL [facility] WBC (Bld) [#/Vol] 4.96 10*3/uL 3.73 - 10. 10 K/uL [facility] CHEM 7 (LYTES,BUN,CREA,GLUC) on 08-30-2023 Anion gap [Moles/Vol] 14 mmol/L 7 - 17 mmol/L [facility] Chloride [Moles/Vol] 102 mmol/L 98 - 10 8 mmol/L [facility] CO2 [Moles/Vol] 20 mmol/L Low 21 - 31 mmol/L [facility] Creatinine [Mass/Vol] 1.56 mg/dL High 0.70 - 1.30 mg/dL [facility] eGFR, CKD-EPI, Male 54 Low - PINF [facility] Glucose [Mass/Vol] 123 mg/dL High 70 - 99 mg/dL [facility] Osmolality Calc [Osmolality] 281 [facility] Potassium [Moles/Vol] 4.3 mmol/L 3.5 - 5.0 mmol/L [facility] Sodium [Moles/Vol] 132 mmol/L Low 135 - 145 mmol/L [facility] Urea nitrogen [Mass/Vol] 16 mg/dL 7 - 25 mg/dL [facility] Urea nitrogen/Creatinine [Mass ratio] 10 mg/mg [facility] EXTRA MICROon 08-30-2023 [facility] HEPATIC FUNCTION PANELon Albumin [Mass/Vol] 3.7 g/dL 3.5 - 5.0 g/dL [facility] ALP [Catalytic activity/Vol] 115 U/L 32 - 126 U/L [facility] ALT [Catalytic activity/Vol] 22 U/L 10 - 52 U/L [facility] AST [Catalytic activity/Vol] 34 U/L 10 - 39 U/L [facility] Bilirubin [Mass/Vol] 1.2 mg/dL NINF - 1.5 mg/dL [facility] Bilirubin.direct [Mass/Vol] 0.3 mg/dL High NINF - 0.3 mg/dL [facility] Protein [Mass/Vol] 7.7 g/dL 6.4 - 8.3 g/dL [facility] MAGNESIUMon 08-30-2023 Interpretation and review of laboratory results Normal [facility] Magnesium [Mass/Vol] 1.8 mg/dL 1.6 - 2 .6 mg/dL [facility] No Panel Informationon 08-30 Interpretation and review of laboratory results Abnormal [facility] CBC,PLATELETSon 08-29-2023 Erythrocyte distribution width (RBC) [Ratio] 13.4 % 10.9 - 14.3 % [facility] Hematocrit (Bld) [Volume fraction] 37.6 % Low 39.6 - 48.8 % [facility] Hemoglobin (Bld) [Mass/Vol] 12.2 g/dL Low 13.4 - 16.8 g/dL [facility] Interpretation and review of laboratory results Abnormal [facility] MCH (RBC) [Entitic mass] 27.6 pg 26.1 - 33.3 pg [facility] MCHC (RBC) [Mass/Vol] 32.4 g/dL 31.9 - 36.5 g/dL [facility] MCV (RBC) [Entitic vol] 85.1 fL 79.0 - 94.5 fL [facility] Platelet mean volume (Bld) [Entitic vol] 9.4 fL 8.7 - 12.3 fL [facility] Platelets (Bld) [#/Vol] 233 10*3/uL 146 - 337 K/uL [facility] RBC (Bld) [#/Vol] 4.42 10*6/uL [facility] WBC (Bld) [#/Vol] 4.92 10*3/uL 3.73 - 10. 10 K/uL [facility] CHEM 7 (LYTES,BUN,CREA,GLUC) on 08-29-2023 Anion gap [Moles/Vol] 13 mmol/L 7 - 17 mmol/L [facility] Chloride [Moles/Vol] 105 mmol/L 98 - 10 8 mmol/L [facility] CO2 [Moles/Vol] 20 mmol/L Low 21 - 31 mmol/L [facility] Creatinine [Mass/Vol] 1.55 mg/dL High 0.70 - 1.30 mg/dL [facility] eGFR, CKD-EPI, Male 55 Low - PINF [facility] Glucose [Mass/Vol] 108 mg/dL High 70 - 99 mg/dL [facility] Osmolality Calc [Osmolality] 283 [facility] Potassium [Moles/Vol] 4.5 mmol/L 3.5 - 5.0 mmol/L [facility] Sodium [Moles/Vol] 133 mmol/L Low 135 - 145 mmol/L [facility] Urea nitrogen [Mass/Vol] 19 mg/dL 7 - 25 mg/dL [facility] Urea nitrogen/Creatinine [Mass ratio] 12 mg/mg [facility] GGTon 08-29-2023 Gamma glutamyl transferase [Catalytic activity/Vol] 64 U/L 8 - 64 U/L [facility] Interpretation and review of laboratory results Normal [facility] HEPATIC FUNCTION PANELon Albumin [Mass/Vol] 3.3 g/dL Low 3.5 - 5.0 g/dL [facility] ALP [Catalytic activity/Vol] 103 U/L 32 - 126 U/L [facility] ALT [Catalytic activity/Vol] 18 U/L 10 - 52 U/L [facility] AST [Catalytic activity/Vol] 27 U/L 10 - 39 U/L [facility] Bilirubin [Mass/Vol] 1.1 mg/dL NINF - 1.5 mg/dL [facility] Bilirubin.direct [Mass/Vol] 0.3 mg/dL High NINF - 0.3 mg/dL [facility] Protein [Mass/Vol] 6.8 g/dL 6.4 - 8.3 g/dL [facility] MAGNESIUMon 08-29-2023 Interpretation and review of laboratory results Normal [facility] Magnesium [Mass/Vol] 1.7 mg/dL 1.6 - 2 .6 mg/dL [facility] No Panel Informationon 08-29 Interpretation and review of laboratory results Abnormal [facility] PT,INR,PTTon 08-29-2023 aPTT Coag (PPP) [Time] 29.3 s [facility] INR Coag (Bld) [Relative time] 1.1 {INR} 0.9 - 1.1 [facility] Interpretation and review of laboratory results Normal [facility] PT Coag (PPP) [Time] 13.8 s [facility] Portable XR Chest Viewson RADIOLOGY RADIOLOGY [facility] Portable XR Chest ViewsOrder ed By: Gerald Baer on 08-29-2023 [facility] Work Phone: TACROLIMUS LEVEL, TROUGH (GA E DRUG LEVEL)on 08-29-2023 Interpretation and review of laboratory results Normal [facility] Tacrolimus (Bld) [Mass/Vol] 8.9 ng/mL [facility] TACROLIMUS LEVEL, TROUGH (GA E DRUG LEVEL)Ordered By: Roxanne Louie on 08-29-2023 Interpretation and review of laboratory results Normal [facility] Tacrolimus (Bld) [Mass/Vol] 8.7 ng/mL [facility] URINALYSIS REFLEX TO CULTURE PERFORMABLEOrdered By: Shaji Kelly on 08-29-2023 Appearance (U) Clear Clear [facility] Bacteria LM Ql (Urine sed) ABSENT ABSENT [facility] Calcium Oxalate Crystals PRESENT [facility] Color (U) Yellow Yellow [facility] Epithelial cells.squamous LM Ql (Urine sed) 0-2/hpf 0-2/hpf, 3-5/hpf = 1+ [facility] Glucose Test strip (U) [Mass/Vol] Negative Negative [facility] Interpretation and review of laboratory results Abnormal [facility] Ketones (U) [Mass/Vol] Negative Negative [facility] Leukocyte esterase Test strip Ql (U) Negative Negative [facility] Nitrite Ql (U) Negative Negative [facility] pH (U) 6.0 [pH] 5.0 - 7.0 [facility] Protein (U) [Mass/Vol] Negative Negative [facility] RBC (U) [#/Vol] Trace Abnormal Negative [facility] RBC LM.HPF (Urine sed) [#/Area] 3-5 Abnormal [facility] Specific gravity (U) [Rel density] 1.015 1.001 - 1.035 [facility] Urobilinogen (U) [Mass/Vol] 1.0 E.U./dL 0.2 E.U/dL, 1.0 E.U/dL [facility] WBC LM.HPF (Urine sed) [#/Area] 0 - 5 [facility] US for transplanted kidney l imitedon 08-29-2023 RADIOLOGY RADIOLOGY [facility] Radiology Study observation (narrative) [facility] US for transplanted kidney l imitedOrdered By: Romana Matias on 08-29-2023 [facility] Work Phone: CBC AND ELECTRONIC DIFFon Basophils (Bld) [#/Vol] K/uL 0.00 - 0.09 K/uL [facility] Basophils/100 WBC (Bld) 0.6 % [facility] Differential cell count method Nom (Bld) Electronic Differential [facility] Eosinophils (Bld) [#/Vol] 0.10 10*3/uL 0.00 - 0.48 K/uL [facility] Eosinophils/100 WBC (Bld) 2.1 % [facility] Erythrocyte distribution width (RBC) [Ratio] 13.4 % 10.9 - 14.3 % [facility] Hematocrit (Bld) [Volume fraction] 37.9 % Low 39.6 - 48.8 % [facility] Hemoglobin (Bld) [Mass/Vol] 12.4 g/dL Low 13.4 - 16.8 g/dL [facility] Immature granulocytes (Bld) [#/Vol] K/uL NINF - 0.07 K/uL [facility] Immature granulocytes/100 WBC (Bld) 0.6 % [facility] Interpretation and review of laboratory results Abnormal [facility] Lymphocytes (Bld) [#/Vol] 1.76 10*3/uL 0.83 - 3.57 K/uL [facility] Lymphocytes/100 WBC (Bld) 37.1 % [facility] MCH (RBC) [Entitic mass] 27.8 pg 26.1 - 33.3 pg [facility] MCHC (RBC) [Mass/Vol] 32.7 g/dL 31.9 - 36.5 g/dL [facility] MCV (RBC) [Entitic vol] 85.0 fL 79.0 - 94.5 fL [facility] Monocytes (Bld) [#/Vol] 0.66 10*3/uL 0.24 - 0.93 K/uL [facility] Monocytes/100 WBC (Bld) 13.9 % [facility] Neutrophils (Bld) [#/Vol] 2.16 10*3/uL 1.57 - 6.19 K/uL [facility] Nucleated RBC/100 WBC (Bld) [Ratio] 0.0 % [facility] Platelet mean volume (Bld) [Entitic vol] 9.3 fL 8.7 - 12.3 fL [facility] Platelets (Bld) [#/Vol] 262 10*3/uL 146 - 337 K/uL [facility] RBC (Bld) [#/Vol] 4.46 10*6/uL [facility] Segmented neutrophils/100 WBC (Bld) 45.7 % [facility] WBC (Bld) [#/Vol] 4.74 10*3/uL 3.73 - 10. 10 K/uL [facility] CHEM 6 (LYTES, BUN CREA)on 0 08-28-2023 Anion gap [Moles/Vol] 13 mmol/L 7 - 17 mmol/L [facility] Chloride [Moles/Vol] 103 mmol/L 98 - 10 8 mmol/L [facility] CO2 [Moles/Vol] 22 mmol/L 21 - 31 mmol/L [facility] Creatinine [Mass/Vol] 1.62 mg/dL High 0.70 - 1.30 mg/dL [facility] eGFR, CKD-EPI, Male 52 Low - PINF [facility] Interpretation and review of laboratory results Abnormal [facility] Potassium [Moles/Vol] 4.3 mmol/L 3.5 - 5.0 mmol/L [facility] Sodium [Moles/Vol] 134 mmol/L Low 135 - 145 mmol/L [facility] Urea nitrogen [Mass/Vol] 22 mg/dL 7 - 25 mg/dL [facility] Urea nitrogen/Creatinine [Mass ratio] 14 mg/mg [facility] Radiology Study observation (narrative) [facility] Respiratory virus DNA+RNA NA A+probe Nom (Unsp spec)Ordered By: Dayami Harris on 08-28-2023 Adenovirus DNA ESTELITA+probe Nom (Unsp spec) Not detected Not Detected [facility] B. parapertussis DNA ESTELITA+probe Ql (Unsp spec) Not detected Not Detected [facility] B. pertussis DNA ESTELITA+probe Ql (Unsp spec) Not detected Not Detected [facility] C. pneumoniae DNA ESTELITA+probe Ql (Unsp spec) Not detected Not Detected [facility] FLUAV RNA ESTELITA+probe Ql (Unsp spec) Not detected Not Detected [facility] FLUBV RNA ESTELITA+probe Ql (Unsp spec) Not detected Not Detected [facility] HCoV 229E RNA ESTELITA+non-probe Ql (Nph) Not detected Not Detected [facility] HCoV HKU1 RNA ESTELITA+non-probe Ql (Nph) Not detected Not Detected [facility] HCoV NL63 RNA ESTELITA+non-probe Ql (Nph) Not detected Not Detected [facility] HCoV OC43 RNA ESTELITA+non-probe Ql (Nph) Not detected Not Detected [facility] hMPV A RNA ESTELITA+probe Ql (Unsp spec) Not detected Not Detected [facility] Interpretation and review of laboratory results Normal [facility] M. pneumoniae DNA ESTELITA+probe Ql (Unsp spec) Not detected Not Detected [facility] Parainfluenza virus 1 RNA ESTELITA+probe Ql (Unsp spec) Not detected Not Detected [facility] Parainfluenza virus 2 RNA ESTELITA+probe Ql (Unsp spec) Not detected Not Detected [facility] Parainfluenza virus 3 RNA ESTELITA+probe Ql (Unsp spec) Not detected Not Detected [facility] Parainfluenza virus 4 RNA ESTELITA+probe Ql (Unsp spec) Not detected Not Detected [facility] Rhinovirus+Enterovir us RNA ESTELITA+probe Ql (Unsp spec) Not detected Not Detected [facility] RSV RNA ESTELITA+probe Ql (Unsp spec) Not detected Not Detected [facility] SARS-CoV-2 (COVID-19) RNA ESTELITA+probe Ql (Unsp spec) Not detected NOT [facility]ED [facility] Albumin [Mass/Vol] 4.0 g/dL Normal 3.4-5.0 [facility] [facility] Comment on above: Performed By: #### C MP #### [facility] [address] [place] [address] Dr. Dwight Waters ALKALINE PHOSPHAon ALP [Catalytic activity/Vol] 106 U/L Normal 46-116 [facility] Comment on above: Performed By: #### F [id number] #### [facility] [address] [place] [address] Dr. Dwight Waters BILIRUBIN CONJUGATED (DIRECT )on 04-28-2023 BILI, CONJUGATED 0.3 mg/dL Critically high 0.0-0.2 [facility] Comment on above: Performed By: #### C MP #### [facility] [address] [place] [address] Dr. Dwight Waters BILIRUBIN TOTALon 04-28-2023 Bilirubin [Mass/Vol] 1.4 mg/dL Critically high 0.2-1.0 [facility] Comment on above: Performed By: #### C MP #### [facility] [address] [place] [address] Dr. Dwight Waters BUNon 04-28-2023 Urea nitrogen [Mass/Vol] 12.0 mg/dL Normal 7.0-18.0 [facility] Comment on above: Performed By: #### U RTPCR #### [facility] [address] [place] [address] Dr. Dwight Waters CALCIUMon 04-28-2023 Calcium [Mass/Vol] 9.3 mg/dL Normal 8.5-10.1 [facility] Comment on above: Performed By: #### U RTPCR #### [facility] [address] [place] [address] Dr. Dwight Waters CBC AUTO DIFFon 04-28-2023 BASO # 0.1 103/ul Normal 0.0-0.1 [facility] Comment on above: Performed By: #### C BC #### [facility] [address] [place] [address] Dr. Dwight Waters Basophils/100 WBC (Bld) 0.9 % Normal 0.2-2.0 [facility] Comment on above: Performed By: #### C BC #### [facility] [address] [place] [address] Dr. Dwight Waters EO # 0.2 103/ul Normal 0.0-0.7 [facility] Comment on above: Performed By: #### C BC #### [facility] [address] [place] [address] Dr. Dwight Waters Eosinophils/100 WBC (Bld) 3.8 % Normal 0.9-7.0 [facility] Comment on above: Performed By: #### C BC #### [facility] [address] [place] [address] Dr. Dwight Waters Erythrocyte distribution width (RBC) [Ratio] 12.5 % Normal 11.0-15.0 [facility] Comment on above: Performed By: #### C BC #### [facility] [address] [place] [address] Dr. Dwight Waters Hematocrit (Bld) [Volume fraction] 49.8 % Normal 42.0-54.0 [facility] Comment on above: Performed By: #### C BC #### [facility] [address] [place] [address] Dr. Dwihgt Waters Hemoglobin (Bld) [Mass/Vol] 16.4 g/dL Normal 14.0-18.0 [facility] Comment on above: Performed By: #### C BC #### [facility] [address] [place] [address] Dr. Dwight Waters IG # 0.01 10e3/ul Normal 0.00-0.03 [facility] Comment on above: Performed By: #### C BC #### [facility] [address] [place] [address] Dr. Dwight Waters IG % 0.2 % Normal 0.0-0.5 [facility] Comment on above: Performed By: #### C BC #### [facility] [address] [place] [address] Dr. Dwight Waters LYMPH # 2.1 103/ul Normal 1.2-3.8 [facility] Comment on above: Performed By: #### C BC #### [facility] [address] [place] [address] Dr. Dwight Waters Lymphocytes/100 WBC (Bld) 39.1 % Normal 20.5-60.0 [facility] Comment on above: Performed By: #### C BC #### [facility] [address] [place] [address] Dr. Dwight Waters MANUAL DIFF REQ NO Normal [facility] Comment on above: Performed By: #### C BC #### [facility] [address] [place] [address] Dr. Dwight Waters MCH (RBC) [Entitic mass] 28.6 pg Normal 25.9-34.0 [facility] Comment on above: Performed By: #### C BC #### [facility] [address] [place] [address] Dr. Dwight Waters MCHC (RBC) [Mass/Vol] 32.9 g/dL Normal 29.9-35.2 [facility] Comment on above: Performed By: #### C BC #### [facility] [address] [place] [address] Dr. Dwight Waters MCV (RBC) [Entitic vol] 86.9 fL Normal 80.0-94.0 [facility] Comment on above: Performed By: #### C BC #### [facility] [address] [place] [address] Dr. Dwight Waters MONO # 0.6 103/ul Normal 0.3-0.8 [facility] Comment on above: Performed By: #### C BC #### [facility] [address] [place] [address] Dr. Dwight Waters Monocytes/100 WBC (Bld) 10.6 % Normal 1.7-12.0 [facility] Comment on above: Performed By: #### C BC #### [facility] [address] [place] [address] Dr. Dwight Waters NEUT # 2.5 103/ul Normal 1.4-6.5 [facility] Comment on above: Performed By: #### C BC #### [facility] [address] [place] [address] Dr. Dwight Waters Neutrophils/100 WBC (Bld) 45.4 % Normal 43.0-75.0 [facility] Comment on above: Performed By: #### C BC #### [facility] [address] [place] [address] Dr. Dwight Waters Platelet mean volume (Bld) [Entitic vol] 9.3 fL Critically low 9.5-13.5 [facility] Comment on above: Performed By: #### C BC #### [facility] [address] [address] [address] Dwight Waters PLT 248 103/ul Normal 150-450 [facility] Comment on above: Performed By: #### C BC #### [facility] [address] [place] [address] Dr. Dwight Waters RBC 5.73 106/ul Normal 4.70-6.10 [facility] Comment on above: Performed By: #### C BC #### [facility] [address] [place] [address] Dr. Dwight Waters WBC 5.5 103/ul Normal 4.0-11.0 [facility] Comment on above: Performed By: #### C BC #### [facility] [address] [place] [address] Dr. Dwight Waters CHLORIDEon 04-28-2023 Chloride [Moles/Vol] 107 mmol/L Normal 98-107 [facility] Comment on above: Performed By: #### U RTPCR #### [facility] [address] [place] [address] Dr. Dwight Waters CO2on 04-28-2023 CO2 [Moles/Vol] 28.9 mmol/L Normal 21.0-32.0 [facility] Comment on above: Performed By: #### U RTPCR #### [facility] [address] [place] [address] Dr. Dwight Waters CREATININEon 04-28-2023 Creatinine [Mass/Vol] 1.17 mg/dL Normal 0.70-1.30 [facility] Comment on above: Performed By: #### U RTPCR #### [facility] [address] [place] [address] Dr. Dwight Waters EGFR-AF KYRGYZ >60 Normal >=60 [facility] Comment on above: Performed By: #### U RTPCR #### [facility] [address] [place] [address] Dr. Dwight Waters EGFR-NON AF KYRGYZ >60 Normal >=60 [facility] Comment on above: Performed By: #### U RTPCR #### [facility] [address] [place] [address] Dr. Dwight Waters GGTon 04-28-2023 Gamma glutamyl transferase [Catalytic activity/Vol] 27 U/L Normal 15-85 [facility] Comment on above: Performed By: #### U RTPCR #### [facility] [address] [place] [address] Dr. Dwight Waters GLUCOSE BLOODon 04-28-2023 Glucose [Mass/Vol] 110 mg/dL Critically high 74-106 [facility] Comment on above: Performed By: #### U RTPCR #### [facility] [address] [place] [address] Dr. Dwight Waters MAGNESIUMon 04-28-2023 Magnesium [Mass/Vol] 1.7 mg/dL Critically low 1.8-2.4 [facility] Comment on above: Performed By: #### U RTPCR #### [facility] [address] [place] [address] Dr. Dwight Waters NAon 04-28-2023 Sodium [Moles/Vol] 144 mmol/L Normal 136-145 [facility] Comment on above: Performed By: #### U RTPCR #### [facility] [address] [place] [address] Dr. Dwight Waters PHOSPHORUSon 04-28-2023 Phosphate [Mass/Vol] 3.2 mg/dL Normal 2.6-4.7 [facility] Comment on above: Performed By: #### U RTPCR #### [facility] [address] [place] [address] Dr. Dwight Waters POTASSIUMon 04-28-2023 Potassium [Moles/Vol] 4.0 mmol/L Normal 3.5-5.1 [facility] Comment on above: Performed By: #### U RTPCR #### [facility] [address] [place] [address] Dr. Dwight Waters SGOTon 04-28-2023 AST [Catalytic activity/Vol] 25 U/L Normal 15-37 [facility] Comment on above: Performed By: #### C MP #### [facility] [address] [place] [address] Dr. Dwight Waters SGPTon 04-28-2023 ALT [Catalytic activity/Vol] 40 U/L Normal 16-63 [facility] Comment on above: Performed By: #### C MP #### [facility] [address] [place] [address] Dr. Dwight Waters URINE T PROTEIN CREAT RATIOo n 04-28-2023 Protein (U) [Mass/Vol] 10.1 mg/dL Normal <=12.0 [facility] Comment on above: Performed By: #### U RTPCR #### [facility] [address] [place] [address] Dr. Dwight Waters UR PROT CREAT RAT 0.14 Normal [facility] Comment on above: Performed By: #### U RTPCR #### [facility] [address] [place] [address] Dr. Dwight Waters URINE CREAT 74.40 mg/dL Normal 20.00-300.00 [facility] Comment on above: Performed By: #### U RTPCR #### [facility] [address] [place] [address] Dr. Dwight Waters BK VIRUS PCR QUANTon 023 BKV DNA QUANT PCR PLASMA Negative Normal Negative [facility] Comment on above: Result Comment: No B K DNA detected. . The linear range of the assay is 22 - 100,000,000 IU/mL. Performed By: #### B KVIRUS #### [facility] [address] [place] [address] Dr. Dwight Waters Log10 BKV DNA Plasma Normal [facility] Comment on above: Performed By: #### B KVIRUS #### [facility] [address] [place] [address] Dr. Dwight Waters FK506 (TACROLIMUS) WHOLE BLO ODon 03-04-2023 Tacrolimus (FK506), Blood 5.9 ng/mL Normal 2.0-20.0 [facility] Comment on above: Result Comment: Trou gh (immediately following transplant) 15.0 . Trough (steady state, 2 weeks or more after transplant): 3.0 - 8.0 . Performed by LC-MS/MS technology. Performed By: #### C MP #### [facility] [address] [place] [address] Dr. Dwight Waters ALBUMINon 03-02-2023 Albumin [Mass/Vol] 3.9 g/dL Normal 3.4-5.0 [facility] Comment on above: Performed By: #### U RTPCR #### [facility] [address] [place] [address] Dr. Dwight Waters ALKALINE PHOSPHAon ALP [Catalytic activity/Vol] 105 U/L Normal 46-116 [facility] Comment on above: Performed By: #### U RTPCR #### [facility] [address] [place] [address] Dr. Dwight Waters BILIRUBIN CONJUGATED (DIRECT )on 03-02-2023 BILI, CONJUGATED 0.2 mg/dL Normal 0.0-0.2 [facility] Comment on above: Performed By: #### U RTPCR #### [facility] [address] [place] [address] Dr. Dwight Waters BILIRUBIN TOTALon 03-02-2023 Bilirubin [Mass/Vol] 0.9 mg/dL Normal 0.2-1.0 [facility] Comment on above: Performed By: #### U RTPCR #### [facility] [address] [place] [address] Dr. Dwight Waters CBC AUTO DIFFon 03-02-2023 BASO # 0.1 103/ul Normal 0.0-0.1 [facility] Comment on above: Performed By: #### C BC #### [facility] [address] [place] [address] Dr. Dwight Waters Basophils/100 WBC (Bld) 0.9 % Normal 0.2-2.0 [facility] Comment on above: Performed By: #### C BC #### [facility] [address] [place] [address] Dr. Dwight Waters EO # 0.2 103/ul Normal 0.0-0.7 [facility] Comment on above: Performed By: #### C BC #### [facility] [address] [place] [address] Dr. Dwight Waters Eosinophils/100 WBC (Bld) 3.5 % Normal 0.9-7.0 [facility] Comment on above: Performed By: #### C BC #### [facility] [address] [place] [address] Dr. Dwight Waters Erythrocyte distribution width (RBC) [Ratio] 12.7 % Normal 11.0-15.0 [facility] Comment on above: Performed By: #### C BC #### [facility] [address] [place] [address] Dr. Dwight Waters Hematocrit (Bld) [Volume fraction] 48.2 % Normal 42.0-54.0 [facility] Comment on above: Performed By: #### C BC #### [facility] [address] [place] [address] Dr. Dwight Waters Hemoglobin (Bld) [Mass/Vol] 15.9 g/dL Normal 14.0-18.0 [facility] Comment on above: Performed By: #### C BC #### [facility] [address] [place] [address] Dr. Dwight Waters IG # 0.01 10e3/ul Normal 0.00-0.03 [facility] Comment on above: Performed By: #### C BC #### [facility] [address] [place] [address] Dr. Dwight Waters IG % 0.2 % Normal 0.0-0.5 [facility] Comment on above: Performed By: #### C BC #### [facility] [address] [place] [address] Dr. Dwight Waters LYMPH # 2.1 103/ul Normal 1.2-3.8 [facility] Comment on above: Performed By: #### C BC #### [facility] [address] [place] [address] Dr. Dwight Waters Lymphocytes/100 WBC (Bld) 37.4 % Normal 20.5-60.0 [facility] Comment on above: Performed By: #### C BC #### [facility] [address] [place] [address] Dr. Dwight Waters MANUAL DIFF REQ NO Normal [facility] Comment on above: Performed By: #### C BC #### [facility] [address] [place] [address] Dr. Dwight Waters MCH (RBC) [Entitic mass] 28.3 pg Normal 25.9-34.0 [facility] Comment on above: Performed By: #### C BC #### [facility] [address] [place] [address] Dr. Dwight Waters MCHC (RBC) [Mass/Vol] 33.0 g/dL Normal 29.9-35.2 [facility] Comment on above: Performed By: #### C BC #### [facility] [address] [place] [address] Dr. Dwight Waters MCV (RBC) [Entitic vol] 85.8 fL Normal 80.0-94.0 [facility] Comment on above: Performed By: #### C BC #### [facility] [address] [place] [address] Dr. Dwight Waters MONO # 0.6 103/ul Normal 0.3-0.8 [facility] Comment on above: Performed By: #### C BC #### [facility] [address] [place] [address] Dr. Dwight Waters Monocytes/100 WBC (Bld) 10.2 % Normal 1.7-12.0 [facility] Comment on above: Performed By: #### C BC #### [facility] [address] [place] [address] Dr. Dwight Waters NEUT # 2.7 103/ul Normal 1.4-6.5 [facility] Comment on above: Performed By: #### C BC #### [facility] [address] [place] [address] Dr. Dwight Waters Neutrophils/100 WBC (Bld) 47.8 % Normal 43.0-75.0 [facility] Comment on above: Performed By: #### C BC #### [facility] [address] [place] [address] Dr. Dwight Waters Platelet mean volume (Bld) [Entitic vol] 9.3 fL Critically low 9.5-13.5 [facility] Comment on above: Performed By: #### C BC #### [facility] [address] [place] [address] Dr. Dwight Waters PLT 241 103/ul Normal 150-450 [facility] Comment on above: Performed By: #### C BC #### [facility] [address] [place] [address] Dr. Dwight Waters RBC 5.62 106/ul Normal 4.70-6.10 [facility] Comment on above: Performed By: #### C BC #### [facility] [address] [place] [address] Dr. Dwight Waters WBC 5.7 103/ul Normal 4.0-11.0 [facility] Comment on above: Performed By: #### C BC #### [facility] [address] [place] [address] Dr. Dwight Waters GGTon 03-02-2023 Gamma glutamyl transferase [Catalytic activity/Vol] 25 U/L Normal 15-85 [facility] Comment on above: Performed By: #### U RTPCR #### [facility] [address] [place] [address] Dr. Dwight Waters MAGNESIUMon 03-02-2023 Magnesium [Mass/Vol] 1.6 mg/dL Critically low 1.8-2.4 [facility] Comment on above: Performed By: #### U RTPCR #### [facility] [address] [place] [address] Dr. Dwight Waters PHOSPHORUSon 03-02-2023 Phosphate [Mass/Vol] 3.6 mg/dL Normal 2.6-4.7 [facility] Comment on above: Performed By: #### U RTPCR #### [facility] [address] [place] [address] Dr. Dwight Waters PROF CHEM 8 (BAS METB)on Anion gap [Moles/Vol] 9.4 mmol/L Normal [facility] Comment on above: Performed By: #### U RTPCR #### [facility] [address] [address] [address] Dwight Waters Calcium [Mass/Vol] 9.3 mg/dL Normal 8.5-10.1 [facility] Comment on above: Performed By: #### U RTPCR #### [facility] [address] [address] [address] Dwight Waters Chloride [Moles/Vol] 108 mmol/L Critically high 98-107 [facility] Comment on above: Performed By: #### U RTPCR #### [facility] [address] [address] [address] Dwight Waters CO2 [Moles/Vol] 27.2 mmol/L Normal 21.0-32.0 [facility] Comment on above: Performed By: #### U RTPCR #### [facility] [address] [place] [address] Dr. Dwight Waters Creatinine [Mass/Vol] 1.12 mg/dL Normal 0.70-1.30 [facility] Comment on above: Performed By: #### U RTPCR #### [facility] [address] [address] [address] Dwight Waters EGFR-AF KYRGYZ >60 Normal >=60 [facility] Comment on above: Performed By: #### U RTPCR #### [facility] [address] [place] [address] Dr. Dwight Waters EGFR-NON AF KYRGYZ >60 Normal >=60 [facility] Comment on above: Performed By: #### U RTPCR #### [facility] [address] [address] [address] Dwight Waters Glucose [Mass/Vol] 113 mg/dL Critically high 74-106 [facility] Comment on above: Performed By: #### U RTPCR #### [facility] [address] [address] [address] Dwight Waters Potassium [Moles/Vol] 3.6 mmol/L Normal 3.5-5.1 [facility] Comment on above: Performed By: #### U RTPCR #### [facility] [address] [address] [address] Dwight Waters Sodium [Moles/Vol] 141 mmol/L Normal 136-145 [facility] Comment on above: Performed By: #### U RTPCR #### [facility] [address] [place] [address] Dr. Dwight Waters Urea nitrogen [Mass/Vol] 14.0 mg/dL Normal 7.0-18.0 [facility] Comment on above: Performed By: #### U RTPCR #### [facility] [address] [place] [address] Dr. Dwight Waters Urea nitrogen/Creatinine [Mass ratio] 12.5 mg/mg Normal [facility] Comment on above: Performed By: #### U RTPCR #### [facility] [address] [place] [address] Dr. Dwight Waters SGOTon 03-02-2023 AST [Catalytic activity/Vol] 20 U/L Normal 15-37 [facility] Comment on above: Performed By: #### U RTPCR #### [facility] [address] [place] [address] Dr. Dwight Waters SGPTon 03-02-2023 ALT [Catalytic activity/Vol] 30 U/L Normal 16-63 [facility] Comment on above: Performed By: #### U RTPCR #### [facility] [address] [place] [address] Dr. Dwight Waters URINE T PROTEIN CREAT RATIOo n 03-02-2023 Protein (U) [Mass/Vol] 10.3 mg/dL Normal <=12.0 [facility] Comment on above: Performed By: #### U RTPCR #### [facility] [address] [place] [address] Dr. Dwight Waters UR PROT CREAT RAT 0.15 Normal [facility] Comment on above: Performed By: #### U RTPCR #### [facility] [address] [place] [address] Dr. Dwight Waters URINE CREAT 68.96 mg/dL Normal 20.00-300.00 [facility] Comment on above: Performed By: #### U RTPCR #### [facility] [address] [place] [address] Dr. Dwight Waters BK VIRUS PCR QUANTon 023 BKV DNA QUANT PCR PLASMA Negative Normal Negative [facility] Comment on above: Result Comment: No B K DNA detected. . The linear range of the assay is 22 - 100,000,000 IU/mL. Performed By: #### C MP #### [facility] [address] [place] [address] Dr. Dwight Waters Log10 BKV DNA Plasma Normal [facility] Comment on above: Performed By: #### C MP #### [facility] [address] [place] [address] Dr. Dwight Waters FK506 (TACROLIMUS) WHOLE BLO ODon 12-31-2022 Tacrolimus (FK506), Blood 5.6 ng/mL Normal 2.0-20.0 [facility] Comment on above: Result Comment: Trou gh (immediately following transplant) 15.0 . Trough (steady state, 2 weeks or more after transplant): 3.0 - 8.0 . Performed by LC-MS/MS technology. Performed By: #### C MP #### [facility] [address] [place] [address] Dr. Dwight Waters ALKALINE PHOSPHAon 3 ALP [Catalytic activity/Vol] 96 U/L Normal 46-116 [facility] Comment on above: Performed By: #### C BC #### [facility] [address] [place] [address] Dr. Dwight Waters BILIRUBIN CONJUGATED (DIRECT )on 12-29-2022 BILI, CONJUGATED 0.3 mg/dL Critically high 0.0-0.2 [facility] Comment on above: Performed By: #### C BC #### [facility] [address] [place] [address] Dr. Dwight Waters BILIRUBIN TOTALon 12-29-2022 Bilirubin [Mass/Vol] 1.1 mg/dL Critically high 0.2-1.0 [facility] Comment on above: Performed By: #### C BC #### [facility] [address] [place] [address] Dr. Dwight Waters CBC AUTO DIFFon 12-29-2022 BASO # 0.1 103/ul Normal 0.0-0.1 [facility] Comment on above: Performed By: #### C MP #### [facility] [address] [place] [address] Dr. Dwight Waters Basophils/100 WBC (Bld) 0.8 % Normal 0.2-2.0 [facility] Comment on above: Performed By: #### C MP #### [facility] [address] [place] [address] Dr. Dwight Waters EO # 0.2 103/ul Normal 0.0-0.7 [facility] Comment on above: Performed By: #### C MP #### [facility] [address] [place] [address] Dr. Dwight Waters Eosinophils/100 WBC (Bld) 3.0 % Normal 0.9-7.0 [facility] Comment on above: Performed By: #### C MP #### [facility] [address] [place] [address] Dr. Dwight Waters Erythrocyte distribution width (RBC) [Ratio] 12.9 % Normal 11.0-15.0 [facility] Comment on above: Performed By: #### C MP #### [facility] [address] [place] [address] Dr. Dwight Waters Hematocrit (Bld) [Volume fraction] 46.9 % Normal 42.0-54.0 [facility] Comment on above: Performed By: #### C MP #### [facility] [address] [place] [address] Dr. Dwight Waters Hemoglobin (Bld) [Mass/Vol] 16.1 g/dL Normal 14.0-18.0 [facility] Comment on above: Performed By: #### C MP #### [facility] [address] [place] [address] Dr. Dwight Waters IG # 0.01 10e3/ul Normal 0.00-0.03 [facility] Comment on above: Performed By: #### C MP #### [facility] [address] [place] [address] Dr. Dwight Waters IG % 0.2 % Normal 0.0-0.5 [facility] Comment on above: Performed By: #### C MP #### [facility] [address] [place] [address] Dr. Dwight Waters LYMPH # 1.8 103/ul Normal 1.2-3.8 [facility] Comment on above: Performed By: #### C MP #### [facility] [address] [place] [address] Dr. Dwight Waters Lymphocytes/100 WBC (Bld) 27.9 % Normal 20.5-60.0 [facility] Comment on above: Performed By: #### C MP #### [facility] [address] [place] [address] Dr. Dwight Waters MANUAL DIFF REQ NO Normal [facility] Comment on above: Performed By: #### C MP #### [facility] [address] [place] [address] Dr. Dwight Waters MCH (RBC) [Entitic mass] 28.5 pg Normal 25.9-34.0 [facility] Comment on above: Performed By: #### C MP #### [facility] [address] [place] [address] Dr. Dwight Waters MCHC (RBC) [Mass/Vol] 34.3 g/dL Normal 29.9-35.2 [facility] Comment on above: Performed By: #### C MP #### [facility] [address] [place] [address] Dr. Dwight Waters MCV (RBC) [Entitic vol] 83.2 fL Normal 80.0-94.0 [facility] Comment on above: Performed By: #### C MP #### [facility] [address] [place] [address] Dr. Dwight Waters MONO # 0.5 103/ul Normal 0.3-0.8 [facility] Comment on above: Performed By: #### C MP #### [facility] [address] [place] [address] Dr. Dwight Waters Monocytes/100 WBC (Bld) 8.1 % Normal 1.7-12.0 [facility] Comment on above: Performed By: #### C MP #### [facility] [address] [address] [address] Dwight Waters NEUT # 3.8 103/ul Normal 1.4-6.5 [facility] Comment on above: Performed By: #### C MP #### [facility] [address] [address] [address] Dwight Waters Neutrophils/100 WBC (Bld) 60.0 % Normal 43.0-75.0 [facility] Comment on above: Performed By: #### C MP #### [facility] [address] [place] [address] Dr. Dwight Waters Platelet mean volume (Bld) [Entitic vol] 9.2 fL Critically low 9.5-13.5 [facility] Comment on above: Performed By: #### C MP #### [facility] [address] [place] [address] Dr. Dwight Waters PLT 225 103/ul Normal 150-450 [facility] Comment on above: Performed By: #### C MP #### [facility] [address] [place] [address] Dr. Dwight Waters RBC 5.64 106/ul Normal 4.70-6.10 [facility] Comment on above: Performed By: #### C MP #### [facility] [address] [place] [address] Dr. Dwight Waters WBC 6.3 103/ul Normal 4.0-11.0 [facility] Comment on above: Performed By: #### C MP #### [facility] [address] [place] [address] Dr. Dwight Waters GGTon 12-29-2022 Gamma glutamyl transferase [Catalytic activity/Vol] 24 U/L Normal 15-85 [facility] Comment on above: Performed By: #### C MP #### [facility] [address] [place] [address] Dr. Dwight Waters LIPID PROFILEon 12-29-2022 CHOL-HDL RATIO NORM SEE BELOW Normal [facility] Comment on above: Result Comment: 3.3 - 4.4 LOW RISK 4.4 - 7.1 AVERAGE RISK 7.1 - 11.0 MODERATE RISK >11.0 HIGH RISK Performed By: #### U RTPCR #### [facility] [address] [place] [address] Dr. Dwight Waters Cholesterol [Mass/Vol] 87 mg/dL Normal <=200 [facility] Comment on above: Performed By: #### U RTPCR #### [facility] [address] [address] [address] Dwight Waters Cholesterol in HDL [Mass/Vol] 44 mg/dL Normal 40-60 [facility] Comment on above: Performed By: #### U RTPCR #### [facility] [address] [place] [address] Dr. Dwight Waters Cholesterol in LDL [Mass/Vol] 33.0 mg/dL Normal [facility] Comment on above: Performed By: #### U RTPCR #### [facility] [address] [place] [address] Dr. Dwight Waters Cholesterol.total/Ch olesterol in HDL [Mass ratio] 2.0 {ratio} Normal [facility] Comment on above: Performed By: #### U RTPCR #### [facility] [address] [place] [address] Dr. Dwight Waters HDL NORMAL > or = 60 mg/dl - LO W CARDIOVASCULAR RISK <40 mg/dl - HIGH CARDIOVASCULAR RISK Normal [facility] Comment on above: Performed By: #### U RTPCR #### [facility] [address] [place] [address] Dr. Dwight Waters LDL CALC NORMAL SEE BELOW Normal [facility] Comment on above: Result Comment: <100 mg/dl OPTIMAL 100 - 129 mg/dl NEAR OR ABOVE OPTIMAL 130 - 159 mg/dl BORDERLINE HIGH 160 - 189 mg/dl HIGH >190 mg/dl VERY HIGH Performed By: #### U RTPCR #### [facility] [address] [place] [address] Dr. Dwight Waters Triglyceride [Mass/Vol] 50 mg/dL Normal <=150 [facility] Comment on above: Performed By: #### U RTPCR #### [facility] [address] [address] [address] Dwight Waters VLDL CALC 10.0 mg/dL Normal [facility] Comment on above: Performed By: #### U RTPCR #### [facility] [address] [place] [address] Dr. Dwight Waters MAGNESIUMon 12-29-2022 Magnesium [Mass/Vol] 1.6 mg/dL Critically low 1.8-2.4 [facility] Comment on above: Performed By: #### C BC #### [facility] [address] [place] [address] Dr. Dwight Waters RENAL FUNCTION PANELon 12-29 Albumin [Mass/Vol] 3.9 g/dL Normal 3.4-5.0 [facility] Comment on above: Performed By: #### C BC #### [facility] [address] [place] [address] Dr. Dwight Waters Calcium [Mass/Vol] 9.2 mg/dL Normal 8.5-10.1 [facility] Comment on above: Performed By: #### C BC #### [facility] [address] [place] [address] Dr. Dwight Waters Chloride [Moles/Vol] 109 mmol/L Critically high 98-107 [facility] Comment on above: Performed By: #### C BC #### [facility] [address] [place] [address] Dr. Dwight Waters CO2 [Moles/Vol] 27.0 mmol/L Normal 21.0-32.0 [facility] Comment on above: Performed By: #### C BC #### [facility] [address] [place] [address] Dr. Dwight Waters Creatinine [Mass/Vol] 1.02 mg/dL Normal 0.70-1.30 [facility] Comment on above: Performed By: #### C BC #### [facility] [address] [place] [address] Dr. Dwight Waters EGFR-AF KYRGYZ >60 Normal >=60 [facility] Comment on above: Performed By: #### C BC #### [facility] [address] [place] [address] Dr. Dwight Waters EGFR-NON AF KYRGYZ >60 Normal >=60 [facility] Comment on above: Performed By: #### C BC #### [facility] [address] [place] [address] Dr. Dwight Waters Glucose [Mass/Vol] 117 mg/dL Critically high 74-106 [facility] Comment on above: Performed By: #### C BC #### [facility] [address] [place] [address] Dr. Dwight Waters Phosphate [Mass/Vol] 3.2 mg/dL Normal 2.6-4.7 [facility] Comment on above: Performed By: #### C BC #### [facility] [address] [place] [address] Dr. Dwight Waters Potassium [Moles/Vol] 4.1 mmol/L Normal 3.5-5.1 [facility] Comment on above: Performed By: #### C BC #### [facility] [address] [place] [address] Dr. Dwight Waters Sodium [Moles/Vol] 144 mmol/L Normal 136-145 [facility] Comment on above: Performed By: #### C BC #### [facility] [address] [place] [address] Dr. Dwight Waters Urea nitrogen [Mass/Vol] 13.0 mg/dL Normal 7.0-18.0 [facility] Comment on above: Performed By: #### C BC #### [facility] [address] [place] [address] Dr. Dwight Waters SGOTon 12-29-2022 AST [Catalytic activity/Vol] 21 U/L Normal 15-37 [facility] Comment on above: Performed By: #### C BC #### [facility] [address] [place] [address] Dr. Dwight Waters SGPTon 12-29-2022 ALT [Catalytic activity/Vol] 32 U/L Normal 16-63 [facility] Comment on above: Performed By: #### C BC #### [facility] [address] [address] [address] Dwight Waters URINE T PROTEIN CREAT RATIOo n 12-29-2022 Protein (U) [Mass/Vol] 14.3 mg/dL Critically high <=12.0 [facility] Comment on above: Performed By: #### U RTPCR #### [facility] [address] [place] [address] Dr. Dwight Waters UR PROT CREAT RAT 0.17 Normal [facility] Comment on above: Performed By: #### U RTPCR #### [facility] [address] [place] [address] Dr. Dwight Waters URINE CREAT 86.58 mg/dL Normal 20.00-300.00 [facility] Comment on above: Performed By: #### U RTPCR #### [facility] [address] [place] [address] Dr. Dwight Waters FK506 (TACROLIMUS) WHOLE BLO ODon 11-06-2022 Tacrolimus (FK506), Blood 4.9 ng/mL Normal 2.0-20.0 [facility] Comment on above: Result Comment: Trou gh (immediately following transplant) 15.0 . Trough (steady state, 2 weeks or more after transplant): 3.0 - 8.0 . Performed by LC-MS/MS technology. Performed By: #### U RTPCR #### [facility] [address] [place] [address] Dr. Dwight Waters ALKALINE PHOSPHAon ALP [Catalytic activity/Vol] 86 U/L Normal 46-116 [facility] Comment on above: Performed By: #### U RTPCR #### [facility] [address] [address] [address] Dwight Waters BILIRUBIN CONJUGATED (DIRECT )on 11-04-2022 BILI, CONJUGATED 0.2 mg/dL Normal 0.0-0.2 [facility] Comment on above: Performed By: #### U RTPCR #### [facility] [address] [place] [address] Dr. Dwight Waters BILIRUBIN TOTALon 11-04-2022 Bilirubin [Mass/Vol] 0.8 mg/dL Normal 0.2-1.0 [facility] Comment on above: Performed By: #### U RTPCR #### [facility] [address] [place] [address] Dr. Dwight Waters CBC AUTO DIFFon 11-04-2022 BASO # 0.1 103/ul Normal 0.0-0.1 [facility] Comment on above: Performed By: #### U RTPCR #### [facility] [address] [place] [address] Dr. Dwight Waters Basophils/100 WBC (Bld) 0.9 % Normal 0.2-2.0 [facility] Comment on above: Performed By: #### U RTPCR #### [facility] [address] [place] [address] Dr. Dwight Waters EO # 0.2 103/ul Normal 0.0-0.7 [facility] Comment on above: Performed By: #### U RTPCR #### [facility] [address] [place] [address] Dr. Dwight Waters Eosinophils/100 WBC (Bld) 3.7 % Normal 0.9-7.0 [facility] Comment on above: Performed By: #### U RTPCR #### [facility] [address] [place] [address] Dr. Dwight Waters Erythrocyte distribution width (RBC) [Ratio] 12.9 % Normal 11.0-15.0 [facility] Comment on above: Performed By: #### U RTPCR #### [facility] [address] [place] [address] Dr. Dwight Waters Hematocrit (Bld) [Volume fraction] 48.3 % Normal 42.0-54.0 [facility] Comment on above: Performed By: #### U RTPCR #### [facility] [address] [place] [address] Dr. Dwight Waters Hemoglobin (Bld) [Mass/Vol] 15.6 g/dL Normal 14.0-18.0 [facility] Comment on above: Performed By: #### U RTPCR #### [facility] [address] [place] [address] Dr. Dwight Waters IG # 0.01 10e3/ul Normal 0.00-0.03 [facility] Comment on above: Performed By: #### U RTPCR #### [facility] [address] [place] [address] Dr. Dwight Waters IG % 0.2 % Normal 0.0-0.5 [facility] Comment on above: Performed By: #### U RTPCR #### [facility] [address] [place] [address] Dr. Dwight Waters LYMPH # 1.9 103/ul Normal 1.2-3.8 [facility] Comment on above: Performed By: #### U RTPCR #### [facility] [address] [place] [address] Dr. Dwight Waters Lymphocytes/100 WBC (Bld) 33.0 % Normal 20.5-60.0 [facility] Comment on above: Performed By: #### U RTPCR #### [facility] [address] [place] [address] Dr. Dwight Waters MANUAL DIFF REQ NO Normal [facility] Comment on above: Performed By: #### U RTPCR #### [facility] [address] [place] [address] Dr. Dwight Waters MCH (RBC) [Entitic mass] 27.6 pg Normal 25.9-34.0 [facility] Comment on above: Performed By: #### U RTPCR #### [facility] [address] [place] [address] Dr. Dwight Waters MCHC (RBC) [Mass/Vol] 32.3 g/dL Normal 29.9-35.2 [facility] Comment on above: Performed By: #### U RTPCR #### [facility] [address] [place] [address] Dr. Dwight Waters MCV (RBC) [Entitic vol] 85.5 fL Normal 80.0-94.0 [facility] Comment on above: Performed By: #### U RTPCR #### [facility] [address] [place] [address] Dr. Dwight Waters MONO # 0.5 103/ul Normal 0.3-0.8 [facility] Comment on above: Performed By: #### U RTPCR #### [facility] [address] [place] [address] Dr. Dwight Waters Monocytes/100 WBC (Bld) 8.8 % Normal 1.7-12.0 [facility] Comment on above: Performed By: #### U RTPCR #### [facility] [address] [place] [address] Dr. Dwight Waters NEUT # 3.1 103/ul Normal 1.4-6.5 [facility] Comment on above: Performed By: #### U RTPCR #### [facility] [address] [place] [address] Dr. Dwight Waters Neutrophils/100 WBC (Bld) 53.4 % Normal 43.0-75.0 [facility] Comment on above: Performed By: #### U RTPCR #### [facility] [address] [place] [address] Dr. Dwight Waters Platelet mean volume (Bld) [Entitic vol] 9.2 fL Critically low 9.5-13.5 [facility] Comment on above: Performed By: #### U RTPCR #### [facility] [address] [place] [address] Dr. Dwight Waters PLT 255 103/ul Normal 150-450 [facility] Comment on above: Performed By: #### U RTPCR #### [facility] [address] [place] [address] Dr. Dwight Waters RBC 5.65 106/ul Normal 4.70-6.10 [facility] Comment on above: Performed By: #### U RTPCR #### [facility] [address] [place] [address] Dr. Dwight Waters WBC 5.7 103/ul Normal 4.0-11.0 [facility] Comment on above: Performed By: #### U RTPCR #### [facility] [address] [place] [address] Dr. Dwight Waters GGTon 11-04-2022 Gamma glutamyl transferase [Catalytic activity/Vol] 22 U/L Normal 15-85 [facility] Comment on above: Performed By: #### U RTPCR #### [facility] [address] [place] [address] Dr. Dwight Waters MAGNESIUMon 11-04-2022 Magnesium [Mass/Vol] 1.8 mg/dL Normal 1.8-2.4 [facility] Comment on above: Performed By: #### U RTPCR #### [facility] [address] [place] [address] Dr. Dwight Waters RENAL FUNCTION PANELon 11-04 Albumin [Mass/Vol] 3.8 g/dL Normal 3.4-5.0 [facility] Comment on above: Performed By: #### U RTPCR #### [facility] [address] [place] [address] Dr. Dwight Waters Calcium [Mass/Vol] 9.3 mg/dL Normal 8.5-10.1 [facility] Comment on above: Performed By: #### U RTPCR #### [facility] [address] [place] [address] Dr. Dwight Waters Chloride [Moles/Vol] 107 mmol/L Normal 98-107 [facility] Comment on above: Performed By: #### U RTPCR #### [facility] [address] [place] [address] Dr. Dwight Waters CO2 [Moles/Vol] 29.2 mmol/L Normal 21.0-32.0 [facility] Comment on above: Performed By: #### U RTPCR #### [facility] [address] [place] [address] Dr. Dwight Waters Creatinine [Mass/Vol] 1.07 mg/dL Normal 0.70-1.30 [facility] Comment on above: Performed By: #### U RTPCR #### [facility] [address] [place] [address] Dr. Dwight Waters EGFR-AF KYRGYZ >60 Normal >=60 [facility] Comment on above: Performed By: #### U RTPCR #### [facility] [address] [place] [address] Dr. Dwight Waters EGFR-NON AF KYRGYZ >60 Normal >=60 [facility] Comment on above: Performed By: #### U RTPCR #### [facility] [address] [place] [address] Dr. Dwight Waters Glucose [Mass/Vol] 106 mg/dL Normal 74-106 [facility] Comment on above: Performed By: #### U RTPCR #### [facility] [address] [place] [address] Dr. Dwight Waters Phosphate [Mass/Vol] 2.8 mg/dL Normal 2.6-4.7 [facility] Comment on above: Performed By: #### U RTPCR #### [facility] [address] [place] [address] Dr. Dwight Waters Potassium [Moles/Vol] 4.1 mmol/L Normal 3.5-5.1 [facility] Comment on above: Performed By: #### U RTPCR #### [facility] [address] [place] [address] Dr. Dwight Waters Sodium [Moles/Vol] 143 mmol/L Normal 136-145 [facility] Comment on above: Performed By: #### U RTPCR #### [facility] [address] [place] [address] Dr. Dwight Waters Urea nitrogen [Mass/Vol] 12.0 mg/dL Normal 7.0-18.0 [facility] Comment on above: Performed By: #### U RTPCR #### [facility] [address] [place] [address] Dr. Dwight OLVERAOToamanda 11-04-2022 AST [Catalytic activity/Vol] 19 U/L Normal 15-37 [facility] Comment on above: Performed By: #### U RTPCR #### [facility] [address] [place] [address] Dr. Dwight OLVERAPTon 11-04-2022 ALT [Catalytic activity/Vol] 28 U/L Normal 16-63 [facility] Comment on above: Performed By: #### U RTPCR #### [facility] [address] [address] [address] Dwight Waters URINE T PROTEIN CREAT RATIOo n 11-04-2022 Protein (U) [Mass/Vol] 10.7 mg/dL Normal <=12.0 [facility] Comment on above: Performed By: #### U RTPCR #### [facility] [address] [place] [address] Dr. Dwight Waters UR PROT CREAT RAT 0.13 Normal [facility] Comment on above: Performed By: #### U RTPCR #### [facility] [address] [place] [address] Dr. Dwight Waters URINE CREAT 84.50 mg/dL Normal 20.00-300.00 [facility] Comment on above: Performed By: #### U RTPCR #### [facility] [address] [place] [address] Dr. Dwight Waters FK506 (TACROLIMUS) WHOLE BLO ODon 09-18-2022 Tacrolimus (FK506), Blood 4.6 ng/mL Normal 2.0-20.0 [facility] Comment on above: Result Comment: Trou gh (immediately following transplant) 15.0 . Trough (steady state, 2 weeks or more after transplant): 3.0 - 8.0 . Performed by LC-MS/MS technology. Performed By: #### U RTPCR #### [facility] [address] [place] [address] Dr. Dwight Waters BK VIRUS PCR QUANTon 022 BKV DNA QUANT PCR PLASMA Negative Normal Negative [facility] Comment on above: Result Comment: No B K DNA detected. . The linear range of the assay is 22 - 100,000,000 IU/mL. Performed By: #### U RTPCR #### [facility] [address] [place] [address] Dr. Dwight Waters Log10 BKV DNA Plasma Normal [facility] Comment on above: Performed By: #### U RTPCR #### [facility] [address] [place] [address] Dr. Dwight Waters ALKALINE PHOSPHAon 2 ALP [Catalytic activity/Vol] 92 U/L Normal 46-116 [facility] Comment on above: Performed By: #### U RTPCR #### [facility] [address] [place] [address] Dr. Dwight Waters BILIRUBIN CONJUGATED (DIRECT )on 09-15-2022 BILI, CONJUGATED 0.3 mg/dL Critically high 0.0-0.2 [facility] Comment on above: Performed By: #### U RTPCR #### [facility] [address] [place] [address] Dr. Dwight Waters BILIRUBIN TOTALon 09-15-2022 Bilirubin [Mass/Vol] 1.1 mg/dL Critically high 0.2-1.0 [facility] Comment on above: Performed By: #### U RTPCR #### [facility] [address] [place] [address] Dr. Dwight Waters CBC AUTO DIFFon 09-15-2022 BASO # 0.1 103/ul Normal 0.0-0.1 [facility] Comment on above: Performed By: #### C BC #### [facility] [address] [place] [address] Dr. Dwight Waters Basophils/100 WBC (Bld) 0.8 % Normal 0.2-2.0 [facility] Comment on above: Performed By: #### C BC #### [facility] [address] [place] [address] Dr. Dwight Waters EO # 0.2 103/ul Normal 0.0-0.7 [facility] Comment on above: Performed By: #### C BC #### [facility] [address] [place] [address] Dr. Dwight Waters Eosinophils/100 WBC (Bld) 3.5 % Normal 0.9-7.0 [facility] Comment on above: Performed By: #### C BC #### [facility] [address] [place] [address] Dr. Dwight Waters Erythrocyte distribution width (RBC) [Ratio] 13.0 % Normal 11.0-15.0 [facility] Comment on above: Performed By: #### C BC #### [facility] [address] [place] [address] Dr. Dwight Waters Hematocrit (Bld) [Volume fraction] 50.0 % Normal 42.0-54.0 [facility] Comment on above: Performed By: #### C BC #### [facility] [address] [place] [address] Dr. Dwight Waters Hemoglobin (Bld) [Mass/Vol] 16.0 g/dL Normal 14.0-18.0 [facility] Comment on above: Performed By: #### C BC #### [facility] [address] [place] [address] Dr. Dwight Waters IG # 0.02 10e3/ul Normal 0.00-0.03 [facility] Comment on above: Performed By: #### C BC #### [facility] [address] [place] [address] Dr. Dwight Waters IG % 0.3 % Normal 0.0-0.5 [facility] Comment on above: Performed By: #### C BC #### [facility] [address] [place] [address] Dr. Dwight Waters LYMPH # 1.8 103/ul Normal 1.2-3.8 [facility] Comment on above: Performed By: #### C BC #### [facility] [address] [place] [address] Dr. Dwight Waters Lymphocytes/100 WBC (Bld) 26.5 % Normal 20.5-60.0 [facility] Comment on above: Performed By: #### C BC #### [facility] [address] [place] [address] Dr. Dwight Waters MANUAL DIFF REQ NO Normal [facility] Comment on above: Performed By: #### C BC #### [facility] [address] [place] [address] Dr. Dwight Waters MCH (RBC) [Entitic mass] 28.1 pg Normal 25.9-34.0 [facility] Comment on above: Performed By: #### C BC #### [facility] [address] [place] [address] Dr. Dwight Waters MCHC (RBC) [Mass/Vol] 32.0 g/dL Normal 29.9-35.2 [facility] Comment on above: Performed By: #### C BC #### [facility] [address] [place] [address] Dr. Dwight Waters MCV (RBC) [Entitic vol] 87.9 fL Normal 80.0-94.0 [facility] Comment on above: Performed By: #### C BC #### [facility] [address] [address] [address] Dwight Waters MONO # 0.5 103/ul Normal 0.3-0.8 [facility] Comment on above: Performed By: #### C BC #### [facility] [address] [place] [address] Dr. Dwight Waters Monocytes/100 WBC (Bld) 8.1 % Normal 1.7-12.0 [facility] Comment on above: Performed By: #### C BC #### [facility] [address] [place] [address] Dr. Dwight Waters NEUT # 4.0 103/ul Normal 1.4-6.5 [facility] Comment on above: Performed By: #### C BC #### [facility] [address] [place] [address] Dr. Dwight Waters Neutrophils/100 WBC (Bld) 60.8 % Normal 43.0-75.0 [facility] Comment on above: Performed By: #### C BC #### [facility] [address] [place] [address] Dr. Dwight Waters Platelet mean volume (Bld) [Entitic vol] 9.4 fL Critically low 9.5-13.5 [facility] Comment on above: Performed By: #### C BC #### [facility] [address] [place] [address] Dr. Dwight Waters PLT 265 103/ul Normal 150-450 [facility] Comment on above: Performed By: #### C BC #### [facility] [address] [place] [address] Dr. Dwight Waters RBC 5.69 106/ul Normal 4.70-6.10 [facility] Comment on above: Performed By: #### C BC #### [facility] [address] [place] [address] Dr. Dwight Waters WBC 6.6 103/ul Normal 4.0-11.0 [facility] Comment on above: Performed By: #### C BC #### [facility] [address] [place] [address] Dr. Dwight Waters GGTon 09-15-2022 Gamma glutamyl transferase [Catalytic activity/Vol] 23 U/L Normal 15-85 [facility] Comment on above: Performed By: #### U RTPCR #### [facility] [address] [place] [address] Dr. Dwight Waters MAGNESIUMon 09-15-2022 Magnesium [Mass/Vol] 1.8 mg/dL Normal 1.8-2.4 [facility] Comment on above: Performed By: #### U RTPCR #### [facility] [address] [place] [address] Dr. Dwight Waters RENAL FUNCTION PANELon 09-15 Albumin [Mass/Vol] 4.1 g/dL Normal 3.4-5.0 [facility] Comment on above: Performed By: #### C BC #### [facility] [address] [place] [address] Dr. Dwight Waters Calcium [Mass/Vol] 9.3 mg/dL Normal 8.5-10.1 [facility] Comment on above: Performed By: #### C BC #### [facility] [address] [place] [address] Dr. Dwight Waters Chloride [Moles/Vol] 107 mmol/L Normal 98-107 [facility] Comment on above: Performed By: #### C BC #### [facility] [address] [place] [address] Dr. Dwight Waters CO2 [Moles/Vol] 25.6 mmol/L Normal 21.0-32.0 [facility] Comment on above: Performed By: #### C BC #### [facility] [address] [place] [address] Dr. Dwight Waters Creatinine [Mass/Vol] 1.01 mg/dL Normal 0.70-1.30 [facility] Comment on above: Performed By: #### C BC #### [facility] [address] [place] [address] Dr. Dwight Waters EGFR-AF KYRGYZ >60 Normal >=60 [facility] Comment on above: Performed By: #### C BC #### [facility] [address] [place] [address] Dr. Dwight Waters EGFR-NON AF KYRGYZ >60 Normal >=60 [facility] Comment on above: Performed By: #### C BC #### [facility] [address] [place] [address] Dr. Dwight Waters Glucose [Mass/Vol] 119 mg/dL Critically high 74-106 [facility] Comment on above: Performed By: #### C BC #### [facility] [address] [place] [address] Dr. Dwight Waters Phosphate [Mass/Vol] 2.8 mg/dL Normal 2.6-4.7 [facility] Comment on above: Performed By: #### C BC #### [facility] [address] [place] [address] Dr. Dwight Waters Potassium [Moles/Vol] 4.0 mmol/L Normal 3.5-5.1 [facility] Comment on above: Performed By: #### C BC #### [facility] [address] [place] [address] Dr. Dwight Waters Sodium [Moles/Vol] 141 mmol/L Normal 136-145 [facility] Comment on above: Performed By: #### C BC #### [facility] [address] [place] [address] Dr. Dwight Waters Urea nitrogen [Mass/Vol] 15.0 mg/dL Normal 7.0-18.0 [facility] Comment on above: Performed By: #### C BC #### [facility] [address] [place] [address] Dr. Dwight Waters SGLashondan 09-15-2022 AST [Catalytic activity/Vol] 18 U/L Normal 15-37 [facility] Comment on above: Performed By: #### U RTPCR #### [facility] [address] [place] [address] Dr. Dwight Waters SGPTon 09-15-2022 ALT [Catalytic activity/Vol] 32 U/L Normal 16-63 [facility] Comment on above: Performed By: #### C BC #### [facility] [address] [place] [address] Dr. Dwight Waters URINE T PROTEIN CREAT RATIOo n 09-15-2022 Protein (U) [Mass/Vol] 14.1 mg/dL Critically high <=12.0 [facility] Comment on above: Performed By: #### U RTPCR #### [facility] [address] [place] [address] Dr. Dwight Waters UR PROT CREAT RAT 0.14 Normal [facility] Comment on above: Performed By: #### U RTPCR #### [facility] [address] [place] [address] Dr. Dwight Waters URINE CREAT 98.89 mg/dL Normal 20.00-300.00 [facility] Comment on above: Performed By: #### U RTPCR #### [facility] [address] [place] [address] Dr. Dwight Waters US CAROTID ART BILon [...] JIMENEZ Date: 2022-08-28 13:20 Normal [facility] FK506 (TACROLIMUS) WHOLE BLO ODon 08-17-2022 Tacrolimus (FK506), Blood 9.9 ng/mL Normal 2.0-20.0 [facility] Comment on above: Result Comment: Trou gh (immediately following transplant) 15.0 . Trough (steady state, 2 weeks or more after transplant): 3.0 - 8.0 . Performed by LC-MS/MS technology. Performed By: #### F [id number] #### [facility] [address] [place] [address] Dr. Dwight Waters BK VIRUS PCR QUANTon 022 BKV DNA QUANT PCR PLASMA Negative Normal Negative [facility] Comment on above: Result Comment: No B K DNA detected. . The linear range of the assay is 22 - 100,000,000 IU/mL. Performed By: #### U RTPCR #### [facility] [address] [place] [address] Dr. Dwight Waters Log10 BKV DNA Plasma Normal [facility] Comment on above: Performed By: #### U RTPCR #### [facility] [address] [place] [address] Dr. Dwight Waters ALBUMINon 08-14-2022 Albumin [Mass/Vol] 4.2 g/dL Normal 3.4-5.0 [facility] Comment on above: Performed By: #### F [id number] #### [facility] [address] [place] [address] Dr. Dwight Waters ALKALINE PHOSPHAon ALP [Catalytic activity/Vol] 92 U/L Normal 46-116 [facility] Comment on above: Performed By: #### C BC #### [facility] [address] [place] [address] Dr. Dwight Waters BILIRUBIN CONJUGATED (DIRECT )on 08-14-2022 BILI, CONJUGATED 0.3 mg/dL Critically high 0.0-0.2 [facility] Comment on above: Performed By: #### F [id number] #### [facility] [address] [place] [address] Dr. Dwight Waters BILIRUBIN TOTALon 08-14-2022 Bilirubin [Mass/Vol] 1.5 mg/dL Critically high 0.2-1.0 [facility] Comment on above: Performed By: #### F [id number] #### [facility] [address] [place] [address] Dr. Dwight Waters BUNon 08-14-2022 Urea nitrogen [Mass/Vol] 11.0 mg/dL Normal 7.0-18.0 [facility] Comment on above: Performed By: #### C BC #### [facility] [address] [place] [address] Dr. Dwight Waters CALCIUMon 08-14-2022 Calcium [Mass/Vol] 9.4 mg/dL Normal 8.5-10.1 [facility] Comment on above: Performed By: #### F [id number] #### [facility] [address] [place] [address] Dr. Dwight Waters CBC AUTO DIFFon 08-14-2022 BASO # 0.0 103/ul Normal 0.0-0.1 [facility] Comment on above: Performed By: #### C MP #### [facility] [address] [place] [address] Dr. Dwight Waters Basophils/100 WBC (Bld) 0.5 % Normal 0.2-2.0 [facility] Comment on above: Performed By: #### C MP #### [facility] [address] [place] [address] Dr. Dwight Waters EO # 0.2 103/ul Normal 0.0-0.7 [facility] Comment on above: Performed By: #### C MP #### [facility] [address] [place] [address] Dr. Dwight Waters Eosinophils/100 WBC (Bld) 2.6 % Normal 0.9-7.0 [facility] Comment on above: Performed By: #### C MP #### [facility] [address] [place] [address] Dr. Dwight Waters Erythrocyte distribution width (RBC) [Ratio] 13.1 % Normal 11.0-15.0 [facility] Comment on above: Performed By: #### C MP #### [facility] [address] [place] [address] Dr. Dwight Waters Hematocrit (Bld) [Volume fraction] 47.0 % Normal 42.0-54.0 [facility] Comment on above: Performed By: #### C MP #### [facility] [address] [place] [address] Dr. Dwight Waters Hemoglobin (Bld) [Mass/Vol] 15.3 g/dL Normal 14.0-18.0 [facility] Comment on above: Performed By: #### C MP #### [facility] [address] [place] [address] Dr. Dwight Waters IG # 0.01 10e3/ul Normal 0.00-0.03 [facility] Comment on above: Performed By: #### C MP #### [facility] [address] [place] [address] Dr. Dwight Waters IG % 0.1 % Normal 0.0-0.5 [facility] Comment on above: Performed By: #### C MP #### [facility] [address] [place] [address] Dr. Dwight Waters LYMPH # 2.3 103/ul Normal 1.2-3.8 [facility] Comment on above: Performed By: #### C MP #### [facility] [address] [place] [address] Dr. Dwight Waters Lymphocytes/100 WBC (Bld) 29.8 % Normal 20.5-60.0 [facility] Comment on above: Performed By: #### C MP #### [facility] [address] [place] [address] Dr. Dwight Waters MANUAL DIFF REQ NO Normal [facility] Comment on above: Performed By: #### C MP #### [facility] [address] [place] [address] Dr. Dwight Waters MCH (RBC) [Entitic mass] 28.2 pg Normal 25.9-34.0 [facility] Comment on above: Performed By: #### C MP #### [facility] [address] [place] [address] Dr. Dwight Waters MCHC (RBC) [Mass/Vol] 32.6 g/dL Normal 29.9-35.2 [facility] Comment on above: Performed By: #### C MP #### [facility] [address] [id number] [address] Dwight Waters MCV (RBC) [Entitic vol] 86.7 fL Normal 80.0-94.0 [facility] Comment on above: Performed By: #### C MP #### [facility] [address] [address] [address] Dwight Waters MONO # 0.7 103/ul Normal 0.3-0.8 [facility] Comment on above: Performed By: #### C MP #### [facility] [address] [place] [address] Dr. Dwight Waters Monocytes/100 WBC (Bld) 8.5 % Normal 1.7-12.0 [facility] Comment on above: Performed By: #### C MP #### [facility] [address] [place] [address] Dr. Dwight Waters NEUT # 4.5 103/ul Normal 1.4-6.5 [facility] Comment on above: Performed By: #### C MP #### [facility] [address] [place] [address] Dr. Dwight Waters Neutrophils/100 WBC (Bld) 58.5 % Normal 43.0-75.0 [facility] Comment on above: Performed By: #### C MP #### [facility] [address] [place] [address] Dr. Dwight Waters Platelet mean volume (Bld) [Entitic vol] 9.7 fL Normal 9.5-13.5 [facility] Comment on above: Performed By: #### C MP #### [facility] [address] [place] [address] Dr. Dwight Waters PLT 266 103/ul Normal 150-450 [facility] Comment on above: Performed By: #### C MP #### [facility] [address] [place] [address] Dr. Dwight Waters RBC 5.42 106/ul Normal 4.70-6.10 [facility] Comment on above: Performed By: #### C MP #### [facility] [address] [place] [address] Dr. Dwight Waters WBC 7.6 103/ul Normal 4.0-11.0 [facility] Comment on above: Performed By: #### C MP #### [facility] [address] [place] [address] Dr. Dwight Waters CHLORIDEon 08-14-2022 Chloride [Moles/Vol] 104 mmol/L Normal 98-107 [facility] Comment on above: Performed By: #### C BC #### [facility] [address] [place] [address] Dr. Dwight Waters CO2on 08-14-2022 CO2 [Moles/Vol] 27.9 mmol/L Normal 21.0-32.0 [facility] Comment on above: Performed By: #### C BC #### [facility] [address] [place] [address] Dr. Dwight Waters CREATININEon 08-14-2022 Creatinine [Mass/Vol] 1.08 mg/dL Normal 0.70-1.30 [facility] Comment on above: Performed By: #### C BC #### [facility] [address] [place] [address] Dr. Dwight Waters EGFR-AF KYRGYZ >60 Normal >=60 [facility] Comment on above: Performed By: #### C BC #### [facility] [address] [place] [address] Dr. Dwight Waters EGFR-NON AF KYRGYZ >60 Normal >=60 [facility] Comment on above: Performed By: #### C BC #### [facility] [address] [place] [address] Dr. Dwight Waters GGTon 08-14-2022 Gamma glutamyl transferase [Catalytic activity/Vol] 24 U/L Normal 15-85 [facility] Comment on above: Performed By: #### F [id number] #### [facility] [address] [place] [address] Dr. Dwight Waters GLUCOSE BLOODon 08-14-2022 Glucose [Mass/Vol] 111 mg/dL Critically high 74-106 T [facility] Comment on above: Performed By: #### C BC #### [facility] [address] [place] [address] Dr. Dwight Waters MAGNESIUMon 08-14-2022 Magnesium [Mass/Vol] 1.4 mg/dL Critically low 1.8-2.4 [facility] Comment on above: Performed By: #### C BC #### [facility] [address] [place] [address] Dr. Dwight Waters NAon 08-14-2022 Sodium [Moles/Vol] 140 mmol/L Normal 136-145 [facility] Comment on above: Performed By: #### F [id number] #### [facility] [address] [place] [address] Dr. Dwight Waters PHOSPHORUSon 08-14-2022 Phosphate [Mass/Vol] 3.1 mg/dL Normal 2.6-4.7 [facility] Comment on above: Performed By: #### C BC #### [facility] [address] [place] [address] Dr. Dwight Waters POTASSIUMon 08-14-2022 Potassium [Moles/Vol] 3.5 mmol/L Normal 3.5-5.1 [facility] Comment on above: Performed By: #### C BC #### [facility] [address] [place] [address] Dr. Dwight Albert 08-14-2022 AST [Catalytic activity/Vol] 17 U/L Normal 15-37 [facility] Comment on above: Performed By: #### F [id number] #### [facility] [address] [place] [address] Dr. Dwight Waters SGPTon 08-14-2022 ALT [Catalytic activity/Vol] 22 U/L Normal 16-63 [facility] Comment on above: Performed By: #### F [id number] #### [facility] [address] [place] [address] Dr. Dwight Waters URINE T PROTEIN CREAT RATIOo n 08-14-2022 Protein (U) [Mass/Vol] 10.7 mg/dL Normal <=12.0 [facility] Comment on above: Performed By: #### F [id number] #### [facility] [address] [place] [address] Dr. Dwight Waters UR PROT CREAT RAT 0.10 Normal [facility] Comment on above: Performed By: #### F [id number] #### [facility] [address] [address] [address] Dwight Waters URINE CREAT 104.28 mg/dL Normal 20.00-300.00 [facility] Comment on above: Performed By: #### F [id number] #### [facility] [address] [place], [place] [id number] Dr. Dwight Waters NEPHROSTOMY TUBE REMOVALon 0 [...] physician present for entire procedure: yes U [facility] Radiology Study observation (narrative) [facility] FK506 (TACROLIMUS) WHOLE BLO ODon 07-06-2022 Tacrolimus (FK506), Blood 9.5 ng/mL Normal 2.0-20.0 [facility] Comment on above: Result Comment: Trou gh (immediately following transplant) 15.0 . Trough (steady state, 2 weeks or more after transplant): 3.0 - 8.0 . Performed by LC-MS/MS technology. Performed By: #### C MP #### [facility] [address] [place] [address] Dr. Dwight Waters ALBUMINon 07-03-2022 Albumin [Mass/Vol] 3.7 g/dL Normal 3.4-5.0 [facility] Comment on above: Performed By: #### U RTPCR #### [facility] [address] [place] [address] Dr. Dwight Waters ALKALINE PHOSPHAon ALP [Catalytic activity/Vol] 76 U/L Normal 46-116 [facility] Comment on above: Performed By: #### U RTPCR #### [facility] [address] [place] [address] Dr. Dwight Waters BILIRUBIN CONJUGATED (DIRECT )on 07-03-2022 BILI, CONJUGATED 0.3 mg/dL Critically high 0.0-0.2 [facility] Comment on above: Performed By: #### C BC #### [facility] [address] [place] [address] Dr. Dwight Waters BILIRUBIN TOTALon 07-03-2022 Bilirubin [Mass/Vol] 1.4 mg/dL Critically high 0.2-1.0 [facility] Comment on above: Performed By: #### C BC #### [facility] [address] [place] [address] Dr. Dwight Waters BUNon 07-03-2022 Urea nitrogen [Mass/Vol] 15.0 mg/dL Normal 7.0-18.0 [facility] Comment on above: Performed By: #### C BC #### [facility] [address] [place] [address] Dr. Dwight Waters CALCIUMon 07-03-2022 Calcium [Mass/Vol] 9.4 mg/dL Normal 8.5-10.1 [facility] Comment on above: Performed By: #### U RTPCR #### [facility] [address] [address] [address] Dwight Waters CBC AUTO DIFFon 07-03-2022 BASO # 0.0 103/ul Normal 0.0-0.1 [facility] Comment on above: Performed By: #### U RTPCR #### [facility] [address] [place] [address] Dr. Dwight Waters Basophils/100 WBC (Bld) 0.6 % Normal 0.2-2.0 [facility] Comment on above: Performed By: #### U RTPCR #### [facility] [address] [place] [address] Dr. Dwight Waters EO # 0.2 103/ul Normal 0.0-0.7 [facility] Comment on above: Performed By: #### U RTPCR #### [facility] [address] [place] [address] Dr. Dwight Waters Eosinophils/100 WBC (Bld) 3.5 % Normal 0.9-7.0 [facility] Comment on above: Performed By: #### U RTPCR #### [facility] [address] [place] [address] Dr. Dwight Waters Erythrocyte distribution width (RBC) [Ratio] 12.9 % Normal 11.0-15.0 [facility] Comment on above: Performed By: #### U RTPCR #### [facility] [address] [place] [address] Dr. Dwight Waters Hematocrit (Bld) [Volume fraction] 44.2 % Normal 42.0-54.0 [facility] Comment on above: Performed By: #### U RTPCR #### [facility] [address] [place] [address] Dr. Dwight Waters Hemoglobin (Bld) [Mass/Vol] 14.6 g/dL Normal 14.0-18.0 [facility] Comment on above: Performed By: #### U RTPCR #### [facility] [address] [place] [address] Dr. Dwight Waters IG # 0.02 10e3/ul Normal 0.00-0.03 [facility] Comment on above: Performed By: #### U RTPCR #### [facility] [address] [place] [address] Dr. Dwight Waters IG % 0.3 % Normal 0.0-0.5 [facility] Comment on above: Performed By: #### U RTPCR #### [facility] [address] [place] [address] Dr. Dwight Waters LYMPH # 2.0 103/ul Normal 1.2-3.8 [facility] Comment on above: Performed By: #### U RTPCR #### [facility] [address] [place] [address] Dr. Dwight Waters Lymphocytes/100 WBC (Bld) 28.4 % Normal 20.5-60.0 [facility] Comment on above: Performed By: #### U RTPCR #### [facility] [address] [place] [address] Dr. Dwight Waters MANUAL DIFF REQ NO Normal [facility] Comment on above: Performed By: #### U RTPCR #### [facility] [address] [place] [address] Dr. Dwight Waters MCH (RBC) [Entitic mass] 28.6 pg Normal 25.9-34.0 [facility] Comment on above: Performed By: #### U RTPCR #### [facility] [address] [place] [address] Dr. Dwight Waters MCHC (RBC) [Mass/Vol] 33.0 g/dL Normal 29.9-35.2 [facility] Comment on above: Performed By: #### U RTPCR #### [facility] [address] [place] [address] Dr. Dwight Waters MCV (RBC) [Entitic vol] 86.7 fL Normal 80.0-94.0 [facility] Comment on above: Performed By: #### U RTPCR #### [facility] [address] [place] [address] Dr. Dwight Waters MONO # 0.6 103/ul Normal 0.3-0.8 [facility] Comment on above: Performed By: #### U RTPCR #### [facility] [address] [address] [address] Dwight Waters Monocytes/100 WBC (Bld) 9.1 % Normal 1.7-12.0 [facility] Comment on above: Performed By: #### U RTPCR #### [facility] [address] [place] [address] Dr. Dwight Waters NEUT # 4.0 103/ul Normal 1.4-6.5 [facility] Comment on above: Performed By: #### U RTPCR #### [facility] [address] [place] [address] Dr. Dwight Waters Neutrophils/100 WBC (Bld) 58.1 % Normal 43.0-75.0 [facility] Comment on above: Performed By: #### U RTPCR #### [facility] [address] [place] [address] Dr. Dwight Waters Platelet mean volume (Bld) [Entitic vol] 9.5 fL Normal 9.5-13.5 [facility] Comment on above: Performed By: #### U RTPCR #### [facility] [address] [place] [address] Dr. Dwight Waters PLT 292 103/ul Normal 150-450 [facility] Comment on above: Performed By: #### U RTPCR #### [facility] [address] [place] [address] Dr. Dwight Waters RBC 5.10 106/ul Normal 4.70-6.10 [facility] Comment on above: Performed By: #### U RTPCR #### [facility] [address] [place] [address] Dr. Dwight Waters WBC 6.9 103/ul Normal 4.0-11.0 [facility] Comment on above: Performed By: #### U RTPCR #### [facility] [address] [place] [address] Dr. Dwight Waters CHLORIDEon 07-03-2022 Chloride [Moles/Vol] 108 mmol/L Critically high 98-107 [facility] Comment on above: Performed By: #### C BC #### [facility] [address] [place] [address] Dr. Dwight Waters CO2on 07-03-2022 CO2 [Moles/Vol] 25.2 mmol/L Normal 21.0-32.0 [facility] Comment on above: Performed By: #### C BC #### [facility] [address] [place] [address] Dr. Dwight Waters CREATININEon 07-03-2022 Creatinine [Mass/Vol] 1.03 mg/dL Normal 0.70-1.30 [facility] Comment on above: Performed By: #### U RTPCR #### [facility] [address] [place] [address] Dr. Dwight Waters EGFR-AF KYRGYZ >60 Normal >=60 [facility] Comment on above: Performed By: #### U RTPCR #### [facility] [address] [place] [address] Dr. Dwight Waters EGFR-NON AF KYRGYZ >60 Normal >=60 [facility] Comment on above: Performed By: #### U RTPCR #### [facility] [address] [place] [address] Dr. Dwight Waters GGTon 07-03-2022 Gamma glutamyl transferase [Catalytic activity/Vol] 31 U/L Normal 15-85 [facility] Comment on above: Performed By: #### U RTPCR #### [facility] [address] [place] [address] Dr. Dwight Waters GLUCOSE BLOODon 07-03-2022 Glucose [Mass/Vol] 119 mg/dL Critically high 74-106 [facility] Comment on above: Performed By: #### U RTPCR #### [facility] [address] [place] [address] Dr. Dwight Waters MAGNESIUMon 07-03-2022 Magnesium [Mass/Vol] 1.4 mg/dL Critically low 1.8-2.4 [facility] Comment on above: Performed By: #### C BC #### [facility] [address] [place] [address] Dr. Dwight Waters NAon 07-03-2022 Sodium [Moles/Vol] 142 mmol/L Normal 136-145 [facility] Comment on above: Performed By: #### C MP #### [facility] [address] [place] [address] Dr. Dwight Waters PHOSPHORUSon 07-03-2022 Phosphate [Mass/Vol] 3.4 mg/dL Normal 2.6-4.7 [facility] Comment on above: Performed By: #### C BC #### [facility] [address] [place] [address] Dr. Dwight Waters POTASSIUMon 07-03-2022 Potassium [Moles/Vol] 4.1 mmol/L Normal 3.5-5.1 [facility] Comment on above: Performed By: #### C BC #### [facility] [address] [place] [address] Dr. Dwight Waters SGOTon 07-03-2022 AST [Catalytic activity/Vol] 14 U/L Critically low 15-37 [facility] Comment on above: Performed By: #### C BC #### [facility] [address] [place] [address] Dr. Dwight Waters SGPTon 07-03-2022 ALT [Catalytic activity/Vol] 25 U/L Normal 16-63 [facility] Comment on above: Performed By: #### C BC #### [facility] [address] [place] [address] Dr. Dwight Waters US KIDNEYSon 07-03-2022 US KIDNEYS Ultrasound kidneys, bilateral HISTORY: Transplant of kidney , pain in the right lower quadrant COMPARISON: None. TECHNIQUE: Transabdominal ultrasound imaging of both kidneys was performed. FINDINGS: [place] kidneys are diffusely echogenic and atrophic with cortical thinning. The right kidney measures 8.3 x 3.5 x 4.07 m and the left measures 9.9 x 3.8 x 3.6 cm. No hydronephrosis of the [place] kidneys. There is a renal transplant in [...] the renal transplant. 2. Atrophic [place] kidneys. 3. Normal bladder. Electronically authenticated by: ARCELIA PIZARRO Date: 2022-07-03 17:22 Normal [facility] CT Abdomen and Pelvis WO con traston 06-27-2022 IMPRESSION: 1. Both [place] kidneys are atrophic with improvement in right-sided [...] glands are unremarkable. Kidneys: Both [place] kidneys are atrophic. Interval improvement in right [place] kidney hydronephrosis since May 15, 2022. Status [...] glands are unremarkable. Kidneys: Both [place] kidneys are atrophic. Interval improvement in right [place] kidney hydronephrosis since May 15, 2022. Status [...] lesions. IMPRESSION IMPRESSION: 1. Both [place] kidneys are atrophic with improvement in right-sided hydronephrosis since May 15, 2022. 2. 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 No hydronephrosis. No discrete perinephric collection. 3. Partially imaged postsurgical changes related to prior liver transplant. 4. The bladder is decompressed, limiting evaluation. [facility] Radiology Study observation (narrative) [facility] CT Abdomen and Pelvis WO con trastOrdered By: Gera Lu on 06-27-2022 [facility] Work Phone: CBC AUTO DIFFon 06-18-2022 BASO # 0.0 103/ul Normal 0.0-0.1 [facility] Comment on above: Performed By: #### U RTPCR #### [facility] [address] [place] [address] Dr. Dwight Waters Basophils/100 WBC (Bld) 0.5 % Normal 0.2-2.0 [facility] Comment on above: Performed By: #### U RTPCR #### [facility] [address] [place] [address] Dr. Dwight Waters EO # 0.2 103/ul Normal 0.0-0.7 [facility] Comment on above: Performed By: #### U RTPCR #### [facility] [address] [address] [address] Dwight Waters Eosinophils/100 WBC (Bld) 2.3 % Normal 0.9-7.0 [facility] Comment on above: Performed By: #### U RTPCR #### [facility] [address] [address] [address] Dwight Waters Erythrocyte distribution width (RBC) [Ratio] 12.9 % Normal 11.0-15.0 [facility] Comment on above: Performed By: #### U RTPCR #### [facility] [address] [place] [address] Dr. Dwight Waters Hematocrit (Bld) [Volume fraction] 41.2 % Critically low 42.0-54.0 [facility] Comment on above: Performed By: #### U RTPCR #### [facility] [address] [place] [address] Dr. Dwight Waters Hemoglobin (Bld) [Mass/Vol] 13.3 g/dL Critically low 14.0-18.0 [facility] Comment on above: Performed By: #### U RTPCR #### [facility] [address] [place] [address] Dr. Dwight Waters IG # 0.04 10e3/ul Critically high 0.00-0.03 [facility] Comment on above: Performed By: #### U RTPCR #### [facility] [address] [place] [address] Dr. Dwight Waters IG % 0.5 % Normal 0.0-0.5 [facility] Comment on above: Performed By: #### U RTPCR #### [facility] [address] [place] [address] Dr. Dwight Waters LYMPH # 2.0 103/ul Normal 1.2-3.8 [facility] Comment on above: Performed By: #### U RTPCR #### [facility] [address] [place] [address] Dr. Dwight Waters Lymphocytes/100 WBC (Bld) 22.9 % Normal 20.5-60.0 [facility] Comment on above: Performed By: #### U RTPCR #### [facility] [address] [place] [address] Dr. Dwight Waters MANUAL DIFF REQ NO Normal [facility] Comment on above: Performed By: #### U RTPCR #### [facility] [address] [place] [address] Dr. Dwight Waters MCH (RBC) [Entitic mass] 28.7 pg Normal 25.9-34.0 [facility] Comment on above: Performed By: #### U RTPCR #### [facility] [address] [place] [address] Dr. Dwight Waters MCHC (RBC) [Mass/Vol] 32.3 g/dL Normal 29.9-35.2 [facility] Comment on above: Performed By: #### U RTPCR #### [facility] [address] [place] [address] Dr. Dwight Waters MCV (RBC) [Entitic vol] 88.8 fL Normal 80.0-94.0 [facility] Comment on above: Performed By: #### U RTPCR #### [facility] [address] [place] [address] Dr. Dwight Waters MONO # 0.8 103/ul Normal 0.3-0.8 [facility] Comment on above: Performed By: #### U RTPCR #### [facility] [address] [place] [address] Dr. Dwight Waters Monocytes/100 WBC (Bld) 9.7 % Normal 1.7-12.0 [facility] Comment on above: Performed By: #### U RTPCR #### [facility] [address] [place] [address] Dr. Dwight Waters NEUT # 5.6 103/ul Normal 1.4-6.5 [facility] Comment on above: Performed By: #### U RTPCR #### [facility] [address] [place] [address] Dr. Dwight Waters Neutrophils/100 WBC (Bld) 64.1 % Normal 43.0-75.0 [facility] Comment on above: Performed By: #### U RTPCR #### [facility] [address] [place] [address] Dr. Dwight Waters Platelet mean volume (Bld) [Entitic vol] 10.0 fL Normal 9.5-13.5 [facility] Comment on above: Performed By: #### U RTPCR #### [facility] [address] [place] [address] Dr. Dwight Waters PLT 270 103/ul Normal 150-450 [facility] Comment on above: Performed By: #### U RTPCR #### [facility] [address] [place] [address] Dr. Dwight Waters RBC 4.64 106/ul Critically low 4.70-6.10 [facility] Comment on above: Performed By: #### U RTPCR #### [facility] [address] [address] [address] Dwight Waters WBC 8.7 103/ul Normal 4.0-11.0 [facility] Comment on above: Performed By: #### U RTPCR #### [facility] [address] [address] [address] Dwight Waters CULTURE URINEon 06-18-2022 CULTURE URINE Culture Observations : NO GROWTH. Normal [facility] Comment on above: Performed By: #### U RTPCR #### [facility] [address] [place] [address] Dr. Dwight Waters Covid-19 PCR ([facility])on 05-31 SARS-CoV-2 (COVID-19) RNA ESTELITA+probe Ql (Unsp spec) Not detected Normal NOT DETECTED [facility] Comment on above: Result Comment: When [...] for this test is supported by the [place] of Health and Human Service's declaration that [...] Performed By: #### C BC #### [facility] [address] [place] [address] Dr. Dwight Waters ER URINE PROFILEon 2 Bilirubin Ql (U) Negative Normal NEGATIVE [facility] Comment on above: Performed By: #### U RTPCR #### [facility] [address] [place] [address] Dr. Dwight Waters Clarity (U) CLEAR Normal CLEAR [facility] Comment on above: Performed By: #### U RTPCR #### [facility] [address] [address] [address] Dwight Waters Color (U) YELLOW Normal YELLOW [facility] Comment on above: Performed By: #### U RTPCR #### [facility] [address] [place] [address] Dr. Dwight Waters ERUAHD A micrscopic examina tion will be performed if indicated. Normal [facility] Comment on above: Performed By: #### U RTPCR #### [facility] [address] [place] [address] Dr. Dwight Waters Glucose Ql (U) Negative Normal NEGATIVE [facility] Comment on above: Performed By: #### U RTPCR #### [facility] [address] [place] [address] Dr. Dwight Waters Hemoglobin Ql (U) LARGE Abnormal NEGATIVE [facility] Comment on above: Performed By: #### U RTPCR #### [facility] [address] [place] [address] Dr. Dwight Waters Ketones Ql (U) Negative Normal NEGATIVE [facility] Comment on above: Performed By: #### U RTPCR #### [facility] [address] [place] [address] Dr. Dwight Waters LEUKOCYTES TRACE Abnormal NEGATIVE [facility] Comment on above: Performed By: #### U RTPCR #### [facility] [address] [place] [address] Dr. Dwight Waters Nitrite Ql (U) Negative Normal NEGATIVE [facility] Comment on above: Performed By: #### U RTPCR #### [facility] [address] [place] [address] Dr. Dwight Waters pH (U) 6.0 [pH] Normal 5-9 [facility] Comment on above: Performed By: #### U RTPCR #### [facility] [address] [place] [address] Dr. Dwight Waters Protein (U) [Mass/Vol] 30 mg/dL Abnormal NEGATIVE/ TRACE [facility] Comment on above: Performed By: #### U RTPCR #### [facility] [address] [place] [address] Dr. Dwight Waters SPEC GRAVITY >=1.030 Abnormal 1.005-<=1.02 5 [facility] Comment on above: Performed By: #### U RTPCR #### [facility] [address] [place] [address] Dr. Dwight Waters UR MICRO IND INDICATED Normal [facility] Comment on above: Performed By: #### U RTPCR #### [facility] [address] [place] [address] Dr. Dwight Waters Urobilinogen Qn (U) 0.2 {Alyssa'U}/dL Normal 0.2 - 1. 0 [facility] Comment on above: Performed By: #### U RTPCR #### [facility] [address] [place] [address] Dr. Dwight Waters PROF 14(COMP METB)on 022 Albumin [Mass/Vol] 3.7 g/dL Normal 3.4-5.0 [facility] Comment on above: Performed By: #### C MP #### [facility] [address] [place] [address] Dr. Dwight Waters Albumin/Globulin [Mass ratio] 0.9 {ratio} Normal [facility] Comment on above: Performed By: #### C MP #### [facility] [address] [place] [address] Dr. Dwight Waters ALP [Catalytic activity/Vol] 80 U/L Normal 46-116 [facility] Comment on above: Performed By: #### C MP #### [facility] [address] [place] [address] Dr. Dwight Waters ALT [Catalytic activity/Vol] 24 U/L Normal 16-63 [facility] Comment on above: Performed By: #### C MP #### [facility] [address] [place] [address] Dr. Dwight Waters Anion gap [Moles/Vol] 12.9 mmol/L Normal [facility] Comment on above: Performed By: #### C MP #### [facility] [address] [address] [address] Dwight Waters AST [Catalytic activity/Vol] 17 U/L Normal 15-37 [facility] Comment on above: Performed By: #### C MP #### [facility] [address] [place] [address] Dr. Dwight Waters Bilirubin [Mass/Vol] 0.8 mg/dL Normal 0.2-1.0 [facility] Comment on above: Performed By: #### C MP #### [facility] [address] [place] [address] Dr. Dwight Waters Calcium [Mass/Vol] 9.4 mg/dL Normal 8.5-10.1 [facility] Comment on above: Performed By: #### C MP #### [facility] [address] [place] [address] Dr. Dwight Waters Chloride [Moles/Vol] 106 mmol/L Normal 98-107 [facility] Comment on above: Performed By: #### C MP #### [facility] [address] [place] [address] Dr. Dwight Waters CO2 [Moles/Vol] 25.3 mmol/L Normal 21.0-32.0 [facility] Comment on above: Performed By: #### C MP #### [facility] [address] [place] [address] Dr. Dwight Waters Creatinine [Mass/Vol] 1.29 mg/dL Normal 0.70-1.30 [facility] Comment on above: Performed By: #### C MP #### [facility] [address] [place] [address] Dr. Dwight Waters EGFR-AF KYRGYZ >60 Normal >=60 [facility] Comment on above: Performed By: #### C MP #### [facility] [address] [place] [address] Dr. Dwight Waters EGFR-NON AF KYRGYZ 59 mL/min/1.73m2 Critically low >=60 [facility] Comment on above: Performed By: #### C MP #### [facility] [address] [place] [address] Dr. Dwight Waters Globulin (S) [Mass/Vol] 4.2 g/dL Normal [facility] Comment on above: Performed By: #### C MP #### [facility] [address] [place] [address] Dr. Dwight Waters Glucose [Mass/Vol] 106 mg/dL Normal 74-106 [facility] Comment on above: Performed By: #### C MP #### [facility] [address] [place] [address] Dr. Dwight Waters Potassium [Moles/Vol] 4.2 mmol/L Normal 3.5-5.1 [facility] Comment on above: Performed By: #### C MP #### [facility] [address] [place] [address] Dr. Dwight Waters Protein [Mass/Vol] 7.9 g/dL Normal 6.4-8.2 [facility] Comment on above: Performed By: #### C MP #### [facility] [address] [place] [address] Dr. Dwight Waters Sodium [Moles/Vol] 140 mmol/L Normal 136-145 [facility] Comment on above: Performed By: #### C MP #### [facility] [address] [place] [address] Dr. Dwight Waters Urea nitrogen [Mass/Vol] 22.0 mg/dL Critically high 7.0-18.0 [facility] Comment on above: Performed By: #### C MP #### [facility] [address] [place] [address] Dr. Dwight Waters Urea nitrogen/Creatinine [Mass ratio] 17.1 mg/mg Normal [facility] Comment on above: Performed By: #### C MP #### [facility] [address] [place] [address] Dr. Dwight Waters URINE MICROSCOPIC ONLYon BACTERIA TRACE Abnormal NONE SEEN [facility] Comment on above: Performed By: #### U RTPCR #### [facility] [address] [place] [address] Dr. Dwight Waters Bacteria identified Cx Nom (U) INDICATED Normal [facility] Comment on above: Performed By: #### U RTPCR #### [facility] [address] [place] [address] Dr. Dwight Waters CAST NONE SEEN Normal NONE SEEN [facility] Comment on above: Performed By: #### U RTPCR #### [facility] [address] [place] [address] Dr. Dwight Waters Crystals LM Nom (Urine sed) NONE SEEN Normal NONE SEEN [facility] Comment on above: Performed By: #### U RTPCR #### [facility] [address] [place] [address] Dr. Dwight Waters Epithelial cells LM Ql (Urine sed) NONE SEEN Normal NONE SEEN /RARE [facility] Comment on above: Performed By: #### U RTPCR #### [facility] [address] [place] [address] Dr. Dwight Waters MUCOUS NONE SEEN Normal NONE SEEN [facility] Comment on above: Performed By: #### U RTPCR #### [facility] [address] [place] [address] Dr. Dwight Waters RBC 5-10 Abnormal 0-2 [facility] Comment on above: Performed By: #### U RTPCR #### [facility] [address] [place] [address] Dr. Dwight Waters WBC 10-20 Abnormal NONE SEEN [facility] Comment on above: Performed By: #### U RTPCR #### [facility] [address] [place] [address] Dr. Dwight Waters ALLOSCREEN RECIPIENT (POST T X PRA)on 06-13-2022 AB SPECIFICITY CLASS COMMENT Antibody Specificity testing performed by [employer]. cPRA calculation based on identification of HLA antibody specificities at MFI >2000 and/or presence of CREG antibodies. [facility] Comment on above: Some of the reagents used for testing in the [facility] have yet to be approved by the FDA. Our certification by CLIA to perform high complexity tests allows us to use these reagents in the context of a stringent QC program, and obviates the need for FDA approval.Testing performed by the [facility]. [facility] number: [id number]. CLIA number: [id number], Director: Carlito Merchant, PhD, D([facility]). ANTIBODY SPECIFICITY INTERPRETATION Detected [facility] CLASS I SPECIFICITIES Not detected [facility] CLASS II SPECIFICITIES Not detected [facility] HLA Ab (S) 0 % 0 [facility] EXTRA MICROon 06-13-2022 [facility] URINE CULTUREOrdered By: Jah Upton on 06-13-2022 Bacteria identified Cx Nom (Unsp spec) Growth [facility] Bacteria identified Cx Nom (Unsp spec) 10,000-50,000 CFU/mL Mixed skin shimon [facility] Comment on above: Multiple bacterial m orphotypes present. Suggest appropriate recollection if clinically indicated. [facility] CBC,PLATELETSon 06-12-2022 Erythrocyte distribution width (RBC) [Ratio] 13.0 % 10.9 - 14.3 % [facility] Hematocrit (Bld) [Volume fraction] 43.2 % 39.6 - 48.8 % [facility] Hemoglobin (Bld) [Mass/Vol] 13.9 g/dL 13.4 - 16.8 g/dL [facility] Interpretation and review of laboratory results Normal [facility] MCH (RBC) [Entitic mass] 28.7 pg 26.1 - 33.3 pg [facility] MCHC (RBC) [Mass/Vol] 32.2 g/dL 31.9 - 36.5 g/dL [facility] MCV (RBC) [Entitic vol] 89.1 fL 79.0 - 94.5 fL [facility] Platelet mean volume (Bld) [Entitic vol] 10.5 fL 8.7 - 12.3 fL [facility] Platelets (Bld) [#/Vol] 269 10*3/uL 146 - 337 K/uL [facility] RBC (Bld) [#/Vol] 4.85 10*6/uL [facility] WBC (Bld) [#/Vol] 7.68 10*3/uL 3.73 - 10. 10 K/uL [facility] CHEM 7 (LYTES,BUN,CREA,GLUC) on 06-12-2022 Anion gap [Moles/Vol] 14 mmol/L 7 - 17 mmol/L [facility] Chloride [Moles/Vol] 106 mmol/L 98 - 10 8 mmol/L [facility] CO2 [Moles/Vol] 25 mmol/L 21 - 31 mmol/L [facility] Creatinine [Mass/Vol] 1.26 mg/dL 0.70 - 1.30 mg/dL [facility] GFR/1.73 sq M.predicted CKD-EPI (S/P/Bld) [Vol rate/Area] 69 >=60 mL/min/1.73m 2 [facility] Comment on above: Reported eGFR is bas ed on the CKD-EPI 2020 equation using creatinine, age, and sex. Glucose [Mass/Vol] 83 mg/dL 70 - 99 mg/dL [facility] Osmolality Calc [Osmolality] 295 [facility] Potassium [Moles/Vol] 3.8 mmol/L 3.5 - 5.0 mmol/L [facility] Sodium [Moles/Vol] 141 mmol/L 135 - 145 mmol/L [facility] Urea nitrogen [Mass/Vol] 18 mg/dL 7 - 25 mg/dL [facility] Urea nitrogen/Creatinine [Mass ratio] 14 mg/mg [facility] GGTon 06-12-2022 Gamma glutamyl transferase [Catalytic activity/Vol] 20 U/L 8 - 64 U/L [facility] HEMOGLOBIN [id number] By: Link Roche on 06-12-2022 Average glucose Estimated from glycated hemoglobin (Bld) [Mass/Vol] 126 mg/dL [facility] HbA1c (Bld) [Mass fraction] 6.0 % High 4.7 - 5.6 % [facility] Interpretation and review of laboratory results Abnormal [facility] HEPATIC FUNCTION PANELon Albumin [Mass/Vol] 4.3 g/dL 3.5 - 5.0 g/dL [facility] ALP [Catalytic activity/Vol] 78 U/L 32 - 126 U/L [facility] ALT [Catalytic activity/Vol] 12 U/L 10 - 52 U/L [facility] AST [Catalytic activity/Vol] 16 U/L 10 - 39 U/L [facility] Bilirubin [Mass/Vol] 1.0 mg/dL <1.5 [facility] Bilirubin.direct [Mass/Vol] 0.2 mg/dL <0.3 [facility] Protein [Mass/Vol] 7.5 g/dL 6.4 - 8.3 g/dL [facility] No Panel Informationon 06-12 Interpretation and review of laboratory results Normal [facility] PTH INTACTOrdered By: Marli Lizarraga on 06-12-2022 Interpretation and review of laboratory results Abnormal [facility] Parathyrin.intact [Mass/Vol] 79.7 pg/mL High 14.0 - 72.0 pg/mL [facility] URINALYSIS REFLEX TO CULTURE PERFORMABLEon 06-12-2022 Appearance (U) Clear Clear [facility] Bacteria LM Ql (Urine sed) ABSENT ABSENT [facility] Color (U) Yellow Yellow [facility] Epithelial cells.squamous LM Ql (Urine sed) 1/hpf = 1+ 1/hpf = 1+, 2-5/hpf = 2+, 0/hpf = 0+, ABSENT [facility] Glucose Test strip (U) [Mass/Vol] Negative Negative [facility] Interpretation and review of laboratory results Abnormal [facility] Ketones (U) [Mass/Vol] Trace Abnormal Negative [facility] Leukocyte esterase Test strip Ql (U) Small Abnormal Negative [facility] Nitrite Ql (U) Negative Negative [facility] pH (U) 5.5 [pH] 5.0 - 7.0 [facility] Protein (U) [Mass/Vol] 30 mg/dL Abnormal Negative [facility] RBC (U) [#/Vol] Trace Abnormal Negative [facility] RBC LM.HPF (Urine sed) [#/Area] 0-2 0 - 2 /HPF [facility] Specific gravity (U) [Rel density] 1.026 [facility] Urobilinogen (U) [Mass/Vol] 0.2 E.U./dL 0.2 E.U/dL, 1.0 E.U/dL [facility] WBC LM.HPF (Urine sed) [#/Area] 10-20 Abnormal 0 - 5 /HPF [facility] URINE PROTEIN/CREA RATIO, RA NDOMon 06-12-2022 Creatinine (24H U) [Mass/Vol] 231.68 mg/dL [facility] Protein Unsp time (U) [Mass/Vol] 49 mg/dL [facility] Protein/Creatinine (U) [Mass ratio] 0.211 mg/g [facility] FK506 (TACROLIMUS) WHOLE BLO ODon 06-09-2022 Tacrolimus (FK506), Blood 9.8 ng/mL Normal 2.0-20.0 [facility] Comment on above: Result Comment: Trou gh (immediately following transplant) 15.0 . Trough (steady state, 2 weeks or more after transplant): 3.0 - 8.0 . Performed by LC-MS/MS technology. Performed By: #### U RTPCR #### [facility] [address] [place] [address] Dr. Dwight Waters ALBUMINon 06-06-2022 Albumin [Mass/Vol] 3.8 g/dL Normal 3.4-5.0 [facility] Comment on above: Performed By: #### C MP #### [facility] [address] [place] [address] Dr. Dwight Waters ALKALINE PHOSPHAon ALP [Catalytic activity/Vol] 82 U/L Normal 46-116 [facility] Comment on above: Performed By: #### C MP #### [facility] [address] [place] [address] Dr. Dwight Waters BILIRUBIN CONJUGATED (DIRECT )on 06-06-2022 BILI, CONJUGATED 0.2 mg/dL Normal 0.0-0.2 [facility] Comment on above: Performed By: #### C BC #### [facility] [address] [place] [address] Dr. Dwight Waters BILIRUBIN TOTALon 06-06-2022 Bilirubin [Mass/Vol] 1.0 mg/dL Normal 0.2-1.0 [facility] Comment on above: Performed By: #### C BC #### [facility] [address] [place] [address] Dr. Dwight Waters BUNon 06-06-2022 Urea nitrogen [Mass/Vol] 18.0 mg/dL Normal 7.0-18.0 [facility] Comment on above: Performed By: #### C BC #### [facility] [address] [place] [address] Dr. Dwight Waters CALCIUMon 06-06-2022 Calcium [Mass/Vol] 9.4 mg/dL Normal 8.5-10.1 [facility] Comment on above: Performed By: #### C MP #### [facility] [address] [place] [address] Dr. Dwight Waters CBC AUTO DIFFon 06-06-2022 BASO # 0.1 103/ul Normal 0.0-0.1 [facility] Comment on above: Performed By: #### U RTPCR #### [facility] [address] [place] [address] Dr. Dwight Waters Basophils/100 WBC (Bld) 0.8 % Normal 0.2-2.0 [facility] Comment on above: Performed By: #### U RTPCR #### [facility] [address] [place] [address] Dr. Dwight Waters EO # 0.3 103/ul Normal 0.0-0.7 [facility] Comment on above: Performed By: #### U RTPCR #### [facility] [address] [place] [address] Dr. Dwight Waters Eosinophils/100 WBC (Bld) 3.3 % Normal 0.9-7.0 [facility] Comment on above: Performed By: #### U RTPCR #### [facility] [address] [place] [address] Dr. Dwight Waters Erythrocyte distribution width (RBC) [Ratio] 12.4 % Normal 11.0-15.0 [facility] Comment on above: Performed By: #### U RTPCR #### [facility] [address] [place] [address] Dr. Dwight Waters Hematocrit (Bld) [Volume fraction] 45.1 % Normal 42.0-54.0 [facility] Comment on above: Performed By: #### U RTPCR #### [facility] [address] [place] [address] Dr. Dwight Waters Hemoglobin (Bld) [Mass/Vol] 14.4 g/dL Normal 14.0-18.0 [facility] Comment on above: Performed By: #### U RTPCR #### [facility] [address] [place] [address] Dr. Dwight Waters IG # 0.01 10e3/ul Normal 0.00-0.03 [facility] Comment on above: Performed By: #### U RTPCR #### [facility] [address] [place] [address] Dr. Dwight Waters IG % 0.1 % Normal 0.0-0.5 [facility] Comment on above: Performed By: #### U RTPCR #### [facility] [address] [place] [address] Dr. Dwight Waters LYMPH # 2.2 103/ul Normal 1.2-3.8 [facility] Comment on above: Performed By: #### U RTPCR #### [facility] [address] [place] [address] Dr. Dwight Waters Lymphocytes/100 WBC (Bld) 30.0 % Normal 20.5-60.0 [facility] Comment on above: Performed By: #### U RTPCR #### [facility] [address] [place] [address] Dr. Dwight Waters MANUAL DIFF REQ NO Normal [facility] Comment on above: Performed By: #### U RTPCR #### [facility] [address] [place] [address] Dr. Dwight Waters MCH (RBC) [Entitic mass] 28.2 pg Normal 25.9-34.0 [facility] Comment on above: Performed By: #### U RTPCR #### [facility] [address] [place] [address] Dr. Dwight Waters MCHC (RBC) [Mass/Vol] 31.9 g/dL Normal 29.9-35.2 [facility] Comment on above: Performed By: #### U RTPCR #### [facility] [address] [place] [address] Dr. Dwight Waters MCV (RBC) [Entitic vol] 88.3 fL Normal 80.0-94.0 [facility] Comment on above: Performed By: #### U RTPCR #### [facility] [address] [place] [address] Dr. Dwight Waters MONO # 0.6 103/ul Normal 0.3-0.8 [facility] Comment on above: Performed By: #### U RTPCR #### [facility] [address] [place] [address] Dr. Dwight Waters Monocytes/100 WBC (Bld) 8.2 % Normal 1.7-12.0 [facility] Comment on above: Performed By: #### U RTPCR #### [facility] [address] [place] [address] Dr. Dwight Waters NEUT # 4.3 103/ul Normal 1.4-6.5 [facility] Comment on above: Performed By: #### U RTPCR #### [facility] [address] [place] [address] Dr. Dwight Waters Neutrophils/100 WBC (Bld) 57.6 % Normal 43.0-75.0 [facility] Comment on above: Performed By: #### U RTPCR #### [facility] [address] [place] [address] Dr. Dwight Waters Platelet mean volume (Bld) [Entitic vol] 9.7 fL Normal 9.5-13.5 [facility] Comment on above: Performed By: #### U RTPCR #### [facility] [address] [place] [address] Dr. Dwight Waters PLT 297 103/ul Normal 150-450 [facility] Comment on above: Performed By: #### U RTPCR #### [facility] [address] [place] [address] Dr. Dwight Waters RBC 5.11 106/ul Normal 4.70-6.10 [facility] Comment on above: Performed By: #### U RTPCR #### [facility] [address] [place] [address] Dr. Dwight Waters WBC 7.5 103/ul Normal 4.0-11.0 [facility] Comment on above: Performed By: #### U RTPCR #### [facility] [address] [place] [address] Dr. Dwight Waters CHLORIDEon 06-06-2022 Chloride [Moles/Vol] 107 mmol/L Normal 98-107 [facility] Comment on above: Performed By: #### C BC #### [facility] [address] [place] [address] Dr. Dwight Waters CO2on 06-06-2022 CO2 [Moles/Vol] 27.4 mmol/L Normal 21.0-32.0 [facility] Comment on above: Performed By: #### C BC #### [facility] [address] [place] [address] Dr. Dwight Waters CREATININEon 06-06-2022 Creatinine [Mass/Vol] 1.20 mg/dL Normal 0.70-1.30 [facility] Comment on above: Performed By: #### C BC #### [facility] [address] [place] [address] Dr. Dwight Waters EGFR-AF KYRGYZ >60 Normal >=60 [facility] Comment on above: Performed By: #### C BC #### [facility] [address] [place] [address] Dr. Dwight Waters EGFR-NON AF KYRGYZ >60 Normal >=60 [facility] Comment on above: Performed By: #### C BC #### [facility] [address] [place] [address] Dr. Dwight Waters GGTon 06-06-2022 Gamma glutamyl transferase [Catalytic activity/Vol] 29 U/L Normal 15-85 [facility] Comment on above: Performed By: #### C BC #### [facility] [address] [place] [address] Dr. Dwight Waters GLUCOSE BLOODon 06-06-2022 Glucose [Mass/Vol] 112 mg/dL Critically high 74-106 [facility] Comment on above: Performed By: #### C BC #### [facility] [address] [place] [address] Dr. Dwight Waters MAGNESIUMon 06-06-2022 Magnesium [Mass/Vol] 1.3 mg/dL Critically low 1.8-2.4 [facility] Comment on above: Performed By: #### C MP #### [facility] [address] [place] [address] Dr. Dwight Waters NAon 06-06-2022 Sodium [Moles/Vol] 141 mmol/L Normal 136-145 [facility] Comment on above: Performed By: #### C MP #### [facility] [address] [place] [address] Dr. Dwight Waters PHOSPHORUSon 06-06-2022 Phosphate [Mass/Vol] 3.1 mg/dL Normal 2.6-4.7 [facility] Comment on above: Performed By: #### C MP #### [facility] [address] [place] [address] Dr. Dwight Waters POTASSIUMon 06-06-2022 Potassium [Moles/Vol] 4.3 mmol/L Normal 3.5-5.1 [facility] Comment on above: Performed By: #### C BC #### [facility] [address] [place] [address] Dr. Dwight Waters SGOTon 06-06-2022 AST [Catalytic activity/Vol] 16 U/L Normal 15-37 [facility] Comment on above: Performed By: #### C BC #### [facility] [address], [place] [address] Dr. Dwight Waters SGPTon 06-06-2022 ALT [Catalytic activity/Vol] 50 U/L Normal 16-63 [facility] Comment on above: Performed By: #### C BC #### [facility] [address], [place] [address] Dr. Dwight Waters Bacteria identified Cx Nom ( Bld)on 05-21-2022 Bacteria identified Cx Nom (Unsp spec) NO GROWTH DAY 5 OF 5 [facility] Results may be compr omised due to volume of BACT\ALERT bottle exceeding 10mLs . The optimal blood volume is 8-10 mls per aerobic/anaerobic blood culture bottle. [facility] CALCIUMon 05-20-2022 Calcium [Mass/Vol] 9.1 mg/dL 8.6 - 10. 5 mg/dL [facility] CBC,PLATELETSon 05-20-2022 Erythrocyte distribution width (RBC) [Ratio] 12.5 % 10.9 - 14.3 % [facility] Hematocrit (Bld) [Volume fraction] 37.1 % Low 39.6 - 48.8 % [facility] Hemoglobin (Bld) [Mass/Vol] 12.3 g/dL Low 13.4 - 16.8 g/dL [facility] Interpretation and review of laboratory results Abnormal [facility] MCH (RBC) [Entitic mass] 28.9 pg 26.1 - 33.3 pg [facility] MCHC (RBC) [Mass/Vol] 33.2 g/dL 31.9 - 36.5 g/dL [facility] MCV (RBC) [Entitic vol] 87.3 fL 79.0 - 94.5 fL [facility] Platelet mean volume (Bld) [Entitic vol] 9.9 fL 8.7 - 12.3 fL [facility] Platelets (Bld) [#/Vol] 234 10*3/uL 146 - 337 K/uL [facility] RBC (Bld) [#/Vol] 4.25 10*6/uL Low [facility] WBC (Bld) [#/Vol] 6.31 10*3/uL 3.73 - 10. 10 K/uL [facility] CHEM 7 (LYTES,BUN,CREA,GLUC) on 05-20-2022 Anion gap [Moles/Vol] 15 mmol/L 7 - 17 mmol/L [facility] Chloride [Moles/Vol] 111 mmol/L High 98 - 10 8 mmol/L [facility] CO2 [Moles/Vol] 22 mmol/L 21 - 31 mmol/L [facility] Creatinine [Mass/Vol] 1.10 mg/dL 0.70 - 1.30 mg/dL [facility] GFR/1.73 sq M.predicted CKD-EPI (S/P/Bld) [Vol rate/Area] 81 >=60 mL/min/1.73m 2 [facility] Comment on above: Reported eGFR is bas ed on the CKD-EPI 2020 equation using creatinine, age, and sex. Glucose [Mass/Vol] 92 mg/dL 70 - 99 mg/dL [facility] Interpretation and review of laboratory results Abnormal [facility] Osmolality Calc [Osmolality] 302 [facility] Potassium [Moles/Vol] 4.4 mmol/L 3.5 - 5.0 mmol/L [facility] Sodium [Moles/Vol] 144 mmol/L 135 - 145 mmol/L [facility] Urea nitrogen [Mass/Vol] 18 mg/dL 7 - 25 mg/dL [facility] Urea nitrogen/Creatinine [Mass ratio] 16 mg/mg [facility] MAGNESIUMon 05-20-2022 Interpretation and review of laboratory results Abnormal [facility] Magnesium [Mass/Vol] 1.5 mg/dL Low 1.6 - 2 .6 mg/dL [facility] No Panel Informationon 05-20 Interpretation and review of laboratory results Normal [facility] PHOSPHATE, INORGANICon 05-20 Phosphate [Mass/Vol] 3.3 mg/dL 2.2 - 4 .6 mg/dL [facility] RF Unspecified body region V iews during [...] of kidneys, ureters, and bladder. FINDINGS: Manager Cancer images: Manager Cancer radiographs of the abdomen reveal a nonobstructive [...] up the ureter to the [place] right kidney that is grossly normal appearing. [...] of kidneys, ureters, and bladder. FINDINGS: Manager Cancer images: Manager Cancer radiographs of the abdomen reveal a nonobstructive [...] up the ureter to the [place] right kidney that is grossly normal appearing. [...] I have reviewed and approved this report. [facility]narrative) [facility] Unspecified body region V iews during surgeryOrdered By: Lizz Campos on 05-20-2022 [facility] Work Phone: CALCIUMon 05-19-2022 Calcium [Mass/Vol] 9.2 mg/dL 8.6 - 10. 5 mg/dL [facility] Calcium [Mass/Vol] 8.6 mg/dL 8.6 - 10. 5 mg/dL [facility] CBC,PLATELETSon 05-19-2022 Erythrocyte distribution width (RBC) [Ratio] 12.4 % 10.9 - 14.3 % [facility] Hematocrit (Bld) [Volume fraction] 38.0 % Low 39.6 - 48.8 % [facility] Hemoglobin (Bld) [Mass/Vol] 12.0 g/dL Low 13.4 - 16.8 g/dL [facility] Interpretation and review of laboratory results Abnormal [facility] MCH (RBC) [Entitic mass] 28.6 pg 26.1 - 33.3 pg [facility] MCHC (RBC) [Mass/Vol] 31.6 g/dL Low 31.9 - 36.5 g/dL [facility] MCV (RBC) [Entitic vol] 90.5 fL 79.0 - 94.5 fL [facility] Platelet mean volume (Bld) [Entitic vol] 9.7 fL 8.7 - 12.3 fL [facility] Platelets (Bld) [#/Vol] 199 10*3/uL 146 - 337 K/uL [facility] RBC (Bld) [#/Vol] 4.20 10*6/uL Low [facility] WBC (Bld) [#/Vol] 6.81 10*3/uL 3.73 - 10. 10 K/uL [facility] CHEM 7 (LYTES,BUN,CREA,GLUC) on 05-19-2022 Anion gap [Moles/Vol] 13 mmol/L 7 - 17 mmol/L [facility] Chloride [Moles/Vol] 105 mmol/L 98 - 10 8 mmol/L [facility] CO2 [Moles/Vol] 30 mmol/L 21 - 31 mmol/L [facility] Creatinine [Mass/Vol] 1.39 mg/dL High 0.70 - 1.30 mg/dL [facility] GFR/1.73 sq M.predicted CKD-EPI (S/P/Bld) [Vol rate/Area] 61 >=60 mL/min/1.73m 2 [facility] Comment on above: Reported eGFR is bas ed on the CKD-EPI 2020 equation using creatinine, age, and sex. Glucose [Mass/Vol] 121 mg/dL High 70 - 99 mg/dL [facility] Interpretation and review of laboratory results Abnormal [facility] Osmolality Calc [Osmolality] 303 [facility] Potassium [Moles/Vol] 3.8 mmol/L 3.5 - 5.0 mmol/L [facility] Sodium [Moles/Vol] 144 mmol/L 135 - 145 mmol/L [facility] Urea nitrogen [Mass/Vol] 18 mg/dL 7 - 25 mg/dL [facility] Urea nitrogen/Creatinine [Mass ratio] 13 mg/mg [facility] Anion gap [Moles/Vol] 15 mmol/L 7 - 17 mmol/L [facility] Chloride [Moles/Vol] 106 mmol/L 98 - 10 8 mmol/L [facility] CO2 [Moles/Vol] 24 mmol/L 21 - 31 mmol/L [facility] Creatinine [Mass/Vol] 1.46 mg/dL High 0.70 - 1.30 mg/dL [facility] GFR/1.73 sq M.predicted CKD-EPI (S/P/Bld) [Vol rate/Area] 58 Low >=60 mL/min/1.73m 2 [facility] Comment on above: Reported eGFR is bas ed on the CKD-EPI 2020 equation using creatinine, age, and sex. Glucose [Mass/Vol] 103 mg/dL High 70 - 99 mg/dL [facility] Interpretation and review of laboratory results Abnormal [facility] Osmolality Calc [Osmolality] 298 [facility] Potassium [Moles/Vol] 3.9 mmol/L 3.5 - 5.0 mmol/L [facility] Sodium [Moles/Vol] 141 mmol/L 135 - 145 mmol/L [facility] Urea nitrogen [Mass/Vol] 21 mg/dL 7 - 25 mg/dL [facility] [facility] Urea nitrogen/Creatinine [Mass ratio] 14 mg/mg [facility] MAGNESIUMon 05-19-2022 Magnesium [Mass/Vol] 2.0 mg/dL 1.6 - 2 .6 mg/dL [facility] Magnesium [Mass/Vol] 1.7 mg/dL 1.6 - 2 .6 mg/dL [facility] No Panel Informationon 05-19 Interpretation and review of laboratory results Normal [facility] Interpretation and review of laboratory results Normal [facility] PHOSPHATE, INORGANICon 05-19 Phosphate [Mass/Vol] 3.0 mg/dL 2.2 - 4 .6 mg/dL [facility] Phosphate [Mass/Vol] 2.7 mg/dL 2.2 - 4 .6 mg/dL [facility] CALCIUMon 05-18-2022 Calcium [Mass/Vol] 9.1 mg/dL 8.6 - 10. 5 mg/dL [facility] CBC,PLATELETSon 05-18-2022 Erythrocyte distribution width (RBC) [Ratio] 12.5 % 10.9 - 14.3 % [facility] Hematocrit (Bld) [Volume fraction] 37.3 % Low 39.6 - 48.8 % [facility] Hemoglobin (Bld) [Mass/Vol] 11.9 g/dL Low 13.4 - 16.8 g/dL [facility] Interpretation and review of laboratory results Abnormal [facility] MCH (RBC) [Entitic mass] 28.9 pg 26.1 - 33.3 pg [facility] MCHC (RBC) [Mass/Vol] 31.9 g/dL 31.9 - 36.5 g/dL [facility] MCV (RBC) [Entitic vol] 90.5 fL 79.0 - 94.5 fL [facility] Platelet mean volume (Bld) [Entitic vol] 10.1 fL 8.7 - 12.3 fL [facility] Platelets (Bld) [#/Vol] 189 10*3/uL 146 - 337 K/uL [facility] RBC (Bld) [#/Vol] 4.12 10*6/uL [facility] [#/Vol] 10.19 10*3/uL High 3.73 - 10 .10 K[facility]L [facility] CHEM 7 (LYTES,BUN,CREA,GLUC) on 05-18-2022 Anion gap [Moles/Vol] 13 mmol/L 7 - 17 mmol/L [facility] Chloride [Moles/Vol] 102 mmol/L 98 - 10 8 mmol/L [facility] CO2 [Moles/Vol] 26 mmol/L 21 - 31 mmol/L [facility] Creatinine [Mass/Vol] 1.91 mg/dL High 0.70 - 1.30 mg/dL [facility] GFR/1.73 sq M.predicted CKD-EPI (S/P/Bld) [Vol rate/Area] 42 Low >=60 mL/min/1.73m 2 [facility] Comment on above: Reported eGFR is bas ed on the CKD-EPI 2020 equation using creatinine, age, and sex. Glucose [Mass/Vol] 158 mg/dL High 70 - 99 mg/dL [facility] Osmolality Calc [Osmolality] 297 [facility] Potassium [Moles/Vol] 4.0 mmol/L 3.5 - 5.0 mmol/L [facility] Sodium [Moles/Vol] 137 mmol/L 135 - 145 mmol/L [facility] Urea nitrogen [Mass/Vol] 30 mg/dL High 7 - 25 mg/dL [facility] Urea nitrogen/Creatinine [Mass ratio] 16 mg/mg [facility] CHEM 7 (LYTES,BUN,CREA,GLUC) Ordered By: Tamiko Thapa on 05-18-2022 Anion gap [Moles/Vol] 13 mmol/L 7 - 17 mmol/L [facility] Chloride [Moles/Vol] 104 mmol/L 98 - 10 8 mmol/L [facility] CO2 [Moles/Vol] 26 mmol/L 21 - 31 mmol/L [facility] Creatinine [Mass/Vol] 2.96 mg/dL High 0.70 - 1.30 mg/dL [facility] GFR/1.73 sq M.predicted CKD-EPI (S/P/Bld) [Vol rate/Area] 25 Low >=60 mL/min/1.73m 2 [facility] Comment on above: Reported eGFR is bas ed on the CKD-EPI 2020 equation using creatinine, age, and sex. Glucose [Mass/Vol] 136 mg/dL High 70 - 99 mg/dL [facility] Interpretation and review of laboratory results Abnormal [facility] Osmolality Calc [Osmolality] 304 [facility] Potassium [Moles/Vol] 4.2 mmol/L 3.5 - 5.0 mmol/L [facility] Sodium [Moles/Vol] 139 mmol/L 135 - 145 mmol/L [facility] Urea nitrogen [Mass/Vol] 41 mg/dL High 7 - 25 mg/dL [facility] Urea nitrogen/Creatinine [Mass ratio] 14 mg/mg [facility] MAGNESIUMon 05-18-2022 Magnesium [Mass/Vol] 2.2 mg/dL 1.6 - 2 .6 mg/dL [facility] Interpretation and review of laboratory results Normal [facility] Magnesium [Mass/Vol] 1.7 mg/dL 1.6 - 2 .6 mg/dL [facility] No Panel Informationon 05-18 Interpretation and review of laboratory results Abnormal [facility] Interpretation and review of laboratory results Normal [facility] PHOSPHATE, INORGANICon 05-18 Phosphate [Mass/Vol] 2.0 mg/dL Low 2.2 - 4 .6 mg/dL [facility] Interpretation and review of laboratory results Normal [facility] Phosphate [Mass/Vol] 2.8 mg/dL 2.2 - 4 .6 mg/dL [facility] PT,INR,PTTon 05-18-2022 aPTT Coag (PPP) [Time] 31.0 s [facility] INR Coag (Bld) [Relative time] 1.1 {INR} [facility] Interpretation and review of laboratory results Abnormal [facility] PT Coag (PPP) [Time] 14.4 s High [facility] URINE CULTUREOrdered By: Sylvia Campos on 05-18-2022 Bacteria identified Cx Nom (Unsp spec) No Growth [facility] CBC,PLATELETSon 05-17-2022 Erythrocyte distribution width (RBC) [Ratio] 12.8 % 10.9 - 14.3 % [facility] Hematocrit (Bld) [Volume fraction] 42.8 % 39.6 - 48.8 % [facility] Hemoglobin (Bld) [Mass/Vol] 13.3 g/dL Low 13.4 - 16.8 g/dL [facility] Interpretation and review of laboratory results Abnormal [facility] MCH (RBC) [Entitic mass] 28.9 pg 26.1 - 33.3 pg [facility] MCHC (RBC) [Mass/Vol] 31.1 g/dL Low 31.9 - 36.5 g/dL [facility] MCV (RBC) [Entitic vol] 92.8 fL 79.0 - 94.5 fL [facility] Platelet mean volume (Bld) [Entitic vol] 10.3 fL 8.7 - 12.3 fL [facility] Platelets (Bld) [#/Vol] 188 10*3/uL 146 - 337 K/uL [facility] RBC (Bld) [#/Vol] 4.61 10*6/uL [facility] WBC (Bld) [#/Vol] 16.61 10*3/uL High 3.73 - 10 .10 K/uL [facility] CHEM 7 (LYTES,BUN,CREA,GLUC) Ordered By: Kaylah Mc on 05-17-2022 Anion gap [Moles/Vol] 15 mmol/L 7 - 17 mmol/L [facility] Chloride [Moles/Vol] 103 mmol/L 98 - 10 8 mmol/L [facility] CO2 [Moles/Vol] 23 mmol/L 21 - 31 mmol/L [facility] Creatinine [Mass/Vol] 5.95 mg/dL High 0.70 - 1.30 mg/dL [facility] GFR/1.73 sq M.predicted CKD-EPI (S/P/Bld) [Vol rate/Area] 11 Low >=60 mL/min/1.73m 2 [facility] Comment on above: Reported eGFR is bas ed on the CKD-EPI 2020 equation using creatinine, age, and sex. Glucose [Mass/Vol] 165 mg/dL High 70 - 99 mg/dL [facility] Interpretation and review of laboratory results Abnormal [facility] Osmolality Calc [Osmolality] 305 [facility] Potassium [Moles/Vol] 4.6 mmol/L 3.5 - 5.0 mmol/L [facility] Sodium [Moles/Vol] 136 mmol/L 135 - 145 mmol/L [facility] Urea nitrogen [Mass/Vol] 52 mg/dL High 7 - 25 mg/dL [facility] Urea nitrogen/Creatinine [Mass ratio] 9 mg/mg [facility] CHEM 7 (LYTES,BUN,CREA,GLUC) Ordered By: Kehinde Gutierrez on 05-17-2022 Anion gap [Moles/Vol] 24 mmol/L High 7 - 17 mmol/L [facility] Chloride [Moles/Vol] 100 mmol/L 98 - 10 8 mmol/L [facility] CO2 [Moles/Vol] 16 mmol/L Low 21 - 31 mmol/L [facility] Creatinine [Mass/Vol] 8.08 mg/dL High 0.70 - 1.30 mg/dL [facility] GFR/1.73 sq M.predicted CKD-EPI (S/P/Bld) [Vol rate/Area] 7 Low >=60 mL/min/1.73m 2 [facility] Comment on above: Reported eGFR is bas ed on the CKD-EPI 2020 equation using creatinine, age, and sex. Glucose [Mass/Vol] 164 mg/dL High 70 - 99 mg/dL [facility] Interpretation and review of laboratory results Abnormal [facility] Osmolality Calc [Osmolality] 305 [facility] Potassium [Moles/Vol] 5.0 mmol/L 3.5 - 5.0 mmol/L [facility] Sodium [Moles/Vol] 135 mmol/L 135 - 145 mmol/L [facility] Urea nitrogen [Mass/Vol] 56 mg/dL High 7 - 25 mg/dL [facility] Urea nitrogen/Creatinine [Mass ratio] 7 mg/mg [facility] LAVENDER TOP TUBEon 05-17-20 [facility] MAGNESIUMon 05-17-2022 Interpretation and review of laboratory results Normal [facility] Magnesium [Mass/Vol] 1.8 mg/dL 1.6 - 2 .6 mg/dL [facility] Interpretation and review of laboratory results Normal [facility] Magnesium [Mass/Vol] 1.6 mg/dL 1.6 - 2 .6 mg/dL [facility] No Panel Informationon 05-17 [facility] PHOSPHATE, INORGANICon 05-17 Interpretation and review of laboratory results Abnormal [facility] Phosphate [Mass/Vol] 4.9 mg/dL High 2.2 - 4 .6 mg/dL [facility] PT,INR,PTTon 05-17-2022 aPTT Coag (PPP) [Time] 33.0 s [facility] INR Coag (Bld) [Relative time] 1.3 {INR} High [facility] Interpretation and review of laboratory results Abnormal [facility] PT Coag (PPP) [Time] 15.7 s High [facility] Portable XR Chest Viewson IMPRESSION: No [...] Stable cardiomegaly. IMPRESSION IMPRESSION: No acute findings. [facility] Radiology Study observation (narrative) [facility] Portable XR Chest ViewsOrder ed By: Raheem Sanz on 05-17-2022 [facility] Work Phone: URINALYSISOrdered By: Michael patel Ma on 05-17-2022 Appearance (U) Cloudy Abnormal Clear [facility] Comment on above: Results may be inacc urate due to color interference. Clinical correlation recommended. Bacteria LM Ql (Urine sed) ABSENT ABSENT [facility] Color (U) Red Abnormal Yellow [facility] Comment on above: Results may be inacc urate due to color interference. Clinical correlation recommended. Epithelial cells.squamous LM Ql (Urine sed) ABSENT 1/hpf = 1+, 2-5/hpf = 2+, 0/hpf = 0+, ABSENT [facility] Glucose Test strip (U) [Mass/Vol] Negative Negative [facility] Comment on above: Results may be inacc urate due to color interference. Clinical correlation recommended. Interpretation and review of laboratory results Abnormal [facility] Ketones (U) [Mass/Vol] Trace Abnormal Negative [facility] Comment on above: Results may be inacc urate due to color interference. Clinical correlation recommended. Leukocyte esterase Test strip Ql (U) Large Abnormal Negative [facility] Comment on above: Results may be inacc urate due to color interference. Clinical correlation recommended. Nitrite Ql (U) Negative Negative [facility] Comment on above: Results may be inacc urate due to color interference. Clinical correlation recommended. pH (U) 5.0 [pH] 5.0 - 7.0 [facility] Comment on above: Results may be inacc urate due to color interference. Clinical correlation recommended. Protein (U) [Mass/Vol] mg/dL Abnormal Negative [facility] Comment on above: Results may be inacc urate due to color interference. Clinical correlation recommended. RBC (U) [#/Vol] Large Abnormal Negative [facility] Comment on above: Results may be inacc urate due to color interference. Clinical correlation recommended. RBC LM.HPF (Urine sed) [#/Area] /[HPF] Abnormal 0 - 2 /HPF [facility] Specific gravity (U) [Rel density] 1.016 [facility] Comment on above: Results may be inacc urate due to color interference. Clinical correlation recommended. Urobilinogen (U) [Mass/Vol] 0.2 E.U./dL 0.2 E.U/dL, 1.0 E.U/dL [facility] Comment on above: Results may be inacc urate due to color interference. Clinical correlation recommended. WBC LM.HPF (Urine sed) [#/Area] /[HPF] Abnormal 0 - 5 /HPF [facility] URINE CULTUREOrdered By: Tyler Tiwari on 05-17-2022 Bacteria identified Cx Nom (Unsp spec) No Growth [facility] CBC,PLATELETSon 05-16-2022 Erythrocyte distribution width (RBC) [Ratio] 12.9 % 10.9 - 14.3 % [facility] Hematocrit (Bld) [Volume fraction] 46.5 % 39.6 - 48.8 % [facility] Hemoglobin (Bld) [Mass/Vol] 14.7 g/dL 13.4 - 16.8 g/dL [facility] Interpretation and review of laboratory results Abnormal [facility] MCH (RBC) [Entitic mass] 28.3 pg 26.1 - 33.3 pg [facility] MCHC (RBC) [Mass/Vol] 31.6 g/dL Low 31.9 - 36.5 g/dL [facility] MCV (RBC) [Entitic vol] 89.6 fL 79.0 - 94.5 fL [facility] Platelet mean volume (Bld) [Entitic vol] 10.3 fL 8.7 - 12.3 fL [facility] Platelets (Bld) [#/Vol] 188 10*3/uL 146 - 337 K/uL [facility] RBC (Bld) [#/Vol] 5.19 10*6/uL [facility] WBC (Bld) [#/Vol] 12.55 10*3/uL High 3.73 - 10 .10 K/uL [facility] CHEM 7 (LYTES,BUN,CREA,GLUC) Ordered By: Alma Pena on 05-16-2022 Anion gap [Moles/Vol] 14 mmol/L 7 - 17 mmol/L [facility] Chloride [Moles/Vol] 103 mmol/L 98 - 10 8 mmol/L [facility] CO2 [Moles/Vol] 22 mmol/L 21 - 31 mmol/L [facility] Creatinine [Mass/Vol] 6.09 mg/dL High 0.70 - 1.30 mg/dL [facility] GFR/1.73 sq M.predicted CKD-EPI (S/P/Bld) [Vol rate/Area] 10 Low >=60 mL/min/1.73m 2 [facility] Comment on above: Reported eGFR is bas ed on the CKD-EPI 2020 equation using creatinine, age, and sex. Glucose [Mass/Vol] 134 mg/dL High 70 - 99 mg/dL [facility] Interpretation and review of laboratory results Abnormal [facility] Osmolality Calc [Osmolality] 298 [facility] Potassium [Moles/Vol] 4.9 mmol/L 3.5 - 5.0 mmol/L [facility] Sodium [Moles/Vol] 134 mmol/L Low 135 - 145 mmol/L [facility] Comment on above: Results inconsistent with previous results Urea nitrogen [Mass/Vol] 49 mg/dL High 7 - 25 mg/dL [facility] Urea nitrogen/Creatinine [Mass ratio] 8 mg/mg [facility] CHEM 7 (LYTES,BUN,CREA,GLUC) on 05-16-2022 Anion gap [Moles/Vol] 17 mmol/L 7 - 17 mmol/L [facility] Chloride [Moles/Vol] 106 mmol/L 98 - 10 8 mmol/L [facility] CO2 [Moles/Vol] 22 mmol/L 21 - 31 mmol/L [facility] Creatinine [Mass/Vol] 5.23 mg/dL High 0.70 - 1.30 mg/dL [facility] GFR/1.73 sq M.predicted CKD-EPI (S/P/Bld) [Vol rate/Area] 13 Low >=60 mL/min/1.73m 2 [facility] Comment on above: Reported eGFR is bas ed on the CKD-EPI 2020 equation using creatinine, age, and sex. Glucose [Mass/Vol] 116 mg/dL High 70 - 99 mg/dL [facility] Interpretation and review of laboratory results Abnormal [facility] Osmolality Calc [Osmolality] 305 [facility] Potassium [Moles/Vol] 4.6 mmol/L 3.5 - 5.0 mmol/L [facility] Sodium [Moles/Vol] 140 mmol/L 135 - 145 mmol/L [facility] Urea nitrogen [Mass/Vol] 42 mg/dL High 7 - 25 mg/dL [facility] Urea nitrogen/Creatinine [Mass ratio] 8 mg/mg [facility] EXTRA MICROon 05-16-2022 [facility] LT BLUE TOP TUBEon 2 [facility] LYTES (NA, K, CL) - URINE - RANDOMon 05-16-2022 Chloride (24H U) [Moles/Vol] 68 mmol/L [facility] Potassium (24H U) [Moles/Vol] 36.7 mmol/L [facility] Sodium (24H U) [Moles/Vol] 55 mmol/L [facility] The reference range has not been established for random urine specimens. The test result should be integrated into the clinical context for interpretation. [facility] MAGNESIUMon 05-16-2022 Interpretation and review of laboratory results Normal [facility] Magnesium [Mass/Vol] 1.7 mg/dL 1.6 - 2 .6 mg/dL [facility] NOVEL CORONAVIRUS PCROrdered By: Edson Candelario on 05-16-2022 SARS-CoV-2 (COVID-19) RNA ESTELITA+probe Ql (Unsp spec) Not detected NOT DETECTED [facility] Comment on above: [facility] Negative results do not [...] use authorization for use by authorized laboratories. [facility] No Panel Informationon 05-16 [facility] OSMOLALITY, URINEon 05-16-20 Interpretation and review of laboratory results Normal [facility] Osmolality (U) [Osmolality] 320 mosm/kg [facility] The reference range has not been established for random urine specimens. The test result should be integrated into the clinical context for interpretation. [facility] PROCALCITONINon 05-16-2022 Interpretation and review of laboratory results Normal [facility] Procalcitonin [Mass/Vol] 0.18 ng/mL <0.50 [facility] Comment on above: Procalcitonin is [...] and trend procalcitonin in various clinical settings. [email or web address] Two common cutoffs associated with bacterial infections are as follows. Respiratory tract infections: >0.25 ng/mL Sepsis/septic shock: >0.5 ng/mL Procalcitonin should not be used alone as a diagnostic tool, however. All procalcitonin results should be interpreted in association with the patients clinical condition and all laboratory findings. [facility] PT,INR,PTTon 05-16-2022 aPTT Coag (PPP) [Time] 30.3 s [facility] INR Coag (Bld) [Relative time] 1.1 {INR} [facility] Interpretation and review of laboratory results Normal [facility] PT Coag (PPP) [Time] 14.1 s [facility] SARS-CoV-2 (COVID-19) RNA NA A+probe Ql (Unsp spec)Ordered By: Edson Candelario on 05-16-2022 Interpretation and review of laboratory results Normal [facility] TACROLIMUS LEVEL, TROUGH (GA E DRUG LEVEL)Ordered By: Mariama Nick on 05-16-2022 Interpretation and review of laboratory results Normal [facility] Tacrolimus (Bld) [Mass/Vol] 4.1 ng/mL Bone Marrow Transplant: 4.0-12.0, Therapeutic: 5.0-15.0 [facility] Method performed is a chemiluminescent microparticle immunoasssay on the [employer] i2000. The range is based on experience at [facility] and users should be aware that target concentrations vary widely depending on concomitant therapy, time post-transplant, and desired degree of immunosuppression. [facility] URINE PROTEIN/CREA RATIO, RA Smiley 05-16-2022 Creatinine (24H U) [Mass/Vol] 59.82 mg/dL [facility] Protein Unsp time (U) [Mass/Vol] 111 mg/dL [facility] Protein/Creatinine (U) [Mass ratio] 1.856 mg/g [facility] [...] appearing vascular flow in the transplant kidney. [facility] Radiology Study observation (narrative) [facility] US for transplanted kidney l imitedOrdered By: Rosendo Matute on 05-16-2022 [facility] Work Phone: CBC AND ELECTRONIC DIFFon Basophils (Bld) [#/Vol] 10*3/uL 0.00 - 0.09 K/uL [facility] Basophils/100 WBC (Bld) 0.2 % [facility] Differential cell count method Nom (Bld) Electronic Differential [facility] Eosinophils (Bld) [#/Vol] 10*3/uL 0.00 - 0.48 K/uL [facility] Eosinophils/100 WBC (Bld) 0.0 % [facility] Erythrocyte distribution width (RBC) [Ratio] 12.8 % 10.9 - 14.3 % [facility] Hematocrit (Bld) [Volume fraction] 46.0 % 39.6 - 48.8 % [facility] Hemoglobin (Bld) [Mass/Vol] 14.6 g/dL 13.4 - 16.8 g/dL [facility] Immature granulocytes (Bld) [#/Vol] 0.07 10*3/uL <=0.08 [facility] Immature granulocytes/100 WBC (Bld) 0.4 % [facility] Interpretation and review of laboratory results Abnormal [facility] Lymphocytes (Bld) [#/Vol] 1.49 10*3/uL 0.83 - 3.57 K/uL [facility] Lymphocytes/100 WBC (Bld) 9.4 % [facility] MCH (RBC) [Entitic mass] 28.2 pg 26.1 - 33.3 pg [facility] MCHC (RBC) [Mass/Vol] 31.7 g/dL Low 31.9 - 36.5 g/dL [facility] MCV (RBC) [Entitic vol] 89.0 fL 79.0 - 94.5 fL [facility] Monocytes (Bld) [#/Vol] 1.45 10*3/uL High 0.24 - 0.93 K/uL [facility] Monocytes/100 WBC (Bld) 9.2 % [facility] Neutrophils (Bld) [#/Vol] 12.77 10*3/uL High 1.57 - 6.19 K/uL [facility] Nucleated RBC/100 WBC (Bld) [Ratio] 0.0 % <=0.2 /100 WBC [facility] Platelet mean volume (Bld) [Entitic vol] 9.9 fL 8.7 - 12.3 fL [facility] Platelets (Bld) [#/Vol] 250 10*3/uL 146 - 337 K/uL [facility] RBC (Bld) [#/Vol] 5.17 10*6/uL [facility] Segmented neutrophils/100 WBC (Bld) 80.8 % [facility] WBC (Bld) [#/Vol] 15.81 10*3/uL High 3.73 - 10 .10 K/uL [facility] CBC AUTO DIFFon 05-15-2022 BASO # 0.0 103/ul Normal 0.0-0.1 [facility] Comment on above: Performed By: #### C BC #### [facility] [address] [place] [address] Dr. Dwight Waters Basophils/100 WBC (Bld) 0.3 % Normal 0.2-2.0 [facility] Comment on above: Performed By: #### C BC #### [facility] [address] [place] [address] Dr. Dwight Waters EO # 0.1 103/ul Normal 0.0-0.7 [facility] Comment on above: Performed By: #### C BC #### [facility] [address] [place] [address] Dr. Dwight Waters Eosinophils/100 WBC (Bld) 0.8 % Critically low 0.9-7.0 [facility] Comment on above: Performed By: #### C BC #### [facility] [address] [place] [address] Dr. Dwight Waters Erythrocyte distribution width (RBC) [Ratio] 12.7 % Normal 11.0-15.0 [facility] Comment on above: Performed By: #### C BC #### [facility] [address] [place] [address] Dr. Dwight Waters Hematocrit (Bld) [Volume fraction] 43.5 % Normal 42.0-54.0 [facility] Comment on above: Performed By: #### C BC #### [facility] [address] [place] [address] Dr. Dwight Waters Hemoglobin (Bld) [Mass/Vol] 14.4 g/dL Normal 14.0-18.0 [facility] Comment on above: Performed By: #### C BC #### [facility] [address] [place] [address] Dr. Dwight Waters IG # 0.02 10e3/ul Normal 0.00-0.03 [facility] Comment on above: Performed By: #### C BC #### [facility] [address] [place] [address] Dr. Dwight Waters IG % 0.2 % Normal 0.0-0.5 [facility] Comment on above: Performed By: #### C BC #### [facility] [address] [place] [address] Dr. Dwight Waters LYMPH # 1.5 103/ul Normal 1.2-3.8 [facility] Comment on above: Performed By: #### C BC #### [facility] [address] [place] [address] Dr. Dwight Waters Lymphocytes/100 WBC (Bld) 12.5 % Critically low 20.5-60.0 [facility] Comment on above: Performed By: #### C BC #### [facility] [address] [place] [address] Dr. Dwight Waters MANUAL DIFF REQ NO Normal [facility] Comment on above: Performed By: #### C BC #### [facility] [address] [place] [address] Dr. Dwight Waters MCH (RBC) [Entitic mass] 28.6 pg Normal 25.9-34.0 [facility] Comment on above: Performed By: #### C BC #### [facility] [address] [place] [address] Dr. Dwight Waters MCHC (RBC) [Mass/Vol] 33.1 g/dL Normal 29.9-35.2 [facility] Comment on above: Performed By: #### C BC #### [facility] [address] [place] [address] Dr. Dwight Waters MCV (RBC) [Entitic vol] 86.3 fL Normal 80.0-94.0 [facility] Comment on above: Performed By: #### C BC #### [facility] [address] [place] [address] Dr. Dwight Waters MONO # 1.0 103/ul Critically high 0.3-0.8 [facility] Comment on above: Performed By: #### C BC #### [facility] [address] [place] [address] Dr. Dwight Waters Monocytes/100 WBC (Bld) 8.2 % Normal 1.7-12.0 [facility] Comment on above: Performed By: #### C BC #### [facility] [address] [place] [address] Dr. Dwight Waters NEUT # 9.1 103/ul Critically high 1.4-6.5 [facility] Comment on above: Performed By: #### C BC #### [facility] [address] [place] [address] Dr. Dwight Waters Neutrophils/100 WBC (Bld) 78.0 % Critically high 43.0-75.0 [facility] Comment on above: Performed By: #### C BC #### [facility] [address] [place] [address] Dr. Dwihgt Waters Platelet mean volume (Bld) [Entitic vol] 9.8 fL Normal 9.5-13.5 [facility] Comment on above: Performed By: #### C BC #### [facility] [address] [address] [address] Dwight Waters PLT 251 103/ul Normal 150-450 [facility] Comment on above: Performed By: #### C BC #### [facility] [address] [address] [address] Dwight Waters RBC 5.04 106/ul Normal 4.70-6.10 [facility] Comment on above: Performed By: #### C BC #### [facility] [address] [address] [address] Dwight Waters WBC 11.6 103/ul Critically high 4.0-11.0 [facility] Comment on above: Performed By: #### C BC #### [facility] [address] [address] [address] Dwight Waters CHEM 6 (LYTES, BUN CREA)on 0 05-15-2022 Anion gap [Moles/Vol] 12 mmol/L 7 - 17 mmol/L [facility] Chloride [Moles/Vol] 105 mmol/L 98 - 10 8 mmol/L [facility] CO2 [Moles/Vol] 26 mmol/L 21 - 31 mmol/L [facility] Creatinine [Mass/Vol] 2.85 mg/dL High 0.70 - 1.30 mg/dL [facility] GFR/1.73 sq M.predicted CKD-EPI (S/P/Bld) [Vol rate/Area] 26 Low >=60 mL/min/1.73m 2 [facility] Comment on above: Reported eGFR is bas ed on the CKD-EPI 2020 equation using creatinine, age, and sex. Potassium [Moles/Vol] 4.6 mmol/L 3.5 - 5.0 mmol/L [facility] Sodium [Moles/Vol] 138 mmol/L 135 - 145 mmol/L [facility] Urea nitrogen [Mass/Vol] 32 mg/dL High 7 - 25 mg/dL [facility] Urea nitrogen/Creatinine [Mass ratio] 11 mg/mg [facility] CT ABD/PELVIS WO CONon 05-15 CT ABD/PELVIS [...] with moderate right-sided hydronephrosis. Atrophic [place] kidneys with moderate right-sided hydronephrosis. Multiple nonobstructive [...] with moderate right-sided hydronephrosis. Atrophic [place] kidneys with moderate right-sided hydronephrosis. Multiple nonobstructive right renal calculi measuring up to 8 mm. FOLLOW-UP: Follow-up as clinically indicated. Electronically authenticated by: LYNDSAY JEAN Date: 2022-05-15 05:04 Normal [facility] Covid-19 PCR (CVDTB)on 04-30 SARS-CoV-2 (COVID-19) RNA ESTELITA+probe Ql (Unsp spec) Not detected Normal NOT DETECTED [facility] Comment on above: Result Comment: When [...] for this test is supported by the [employer] and Human Service's declaration that [...] Performed By: #### U RTPCR #### [facility] [address] [place] [address] Dr. Dwight Waters GLUCOSEon 05-15-2022 Glucose [Mass/Vol] 141 mg/dL High 70 - 99 mg/dL [facility] GOLD TOP TUBEon 05-15-2022 [facility] HEPATIC FUNCTION PANELon Albumin [Mass/Vol] 4.3 g/dL 3.5 - 5.0 g/dL [facility] ALP [Catalytic activity/Vol] 85 U/L 32 - 126 U/L [facility] ALT [Catalytic activity/Vol] 13 U/L 10 - 52 U/L [facility] AST [Catalytic activity/Vol] 15 U/L 10 - 39 U/L [facility] Bilirubin [Mass/Vol] 0.8 mg/dL <1.5 [facility] Bilirubin.direct [Mass/Vol] 0.2 mg/dL <0.3 [facility] Interpretation and review of laboratory results Normal [facility] Protein [Mass/Vol] 7.3 g/dL 6.4 - 8.3 g/dL [facility] LIPASEon 05-15-2022 Lipase [Catalytic activity/Vol] 8 U/L Low 11 - 82 U/L [facility] No Panel Informationon 05-15 Interpretation and review of laboratory results Abnormal [facility] PROF 14(COMP METB)on 06-16-2 022 Albumin [Mass/Vol] 3.8 g/dL Normal 3.4-5.0 [facility] Comment on above: Performed By: #### U RTPCR #### [facility] [address] [place] [address] Dr. Dwight Waters Albumin/Globulin [Mass ratio] 1.1 {ratio} Normal [facility] Comment on above: Performed By: #### U RTPCR #### [facility] [address] [place] [address] Dr. Dwight Waters ALP [Catalytic activity/Vol] 92 U/L Normal 46-116 [facility] Comment on above: Performed By: #### U RTPCR #### [facility] [address] [place] [address] Dr. Dwight Waters ALT [Catalytic activity/Vol] 25 U/L Normal 16-63 [facility] Comment on above: Performed By: #### U RTPCR #### [facility] [address] [place] [address] Dr. Dwight Waters Anion gap [Moles/Vol] 14.6 mmol/L Normal [facility] Comment on above: Performed By: #### U RTPCR #### [facility] [address] [place] [address] Dr. Dwight Waters AST [Catalytic activity/Vol] 17 U/L Normal 15-37 [facility] Comment on above: Performed By: #### U RTPCR #### [facility] [address] [place] [address] Dr. Dwight Waters Bilirubin [Mass/Vol] 0.6 mg/dL Normal 0.2-1.0 [facility] Comment on above: Performed By: #### U RTPCR #### [facility] [address] [place] [address] Dr. Dwight Waters Calcium [Mass/Vol] 9.9 mg/dL Normal 8.5-10.1 [facility] Comment on above: Performed By: #### U RTPCR #### [facility] [address] [place] [address] Dr. Dwight Waters Chloride [Moles/Vol] 106 mmol/L Normal 98-107 [facility] Comment on above: Performed By: #### U RTPCR #### [facility] [address] [address] [address] Dwight Waters CO2 [Moles/Vol] 24.2 mmol/L Normal 21.0-32.0 [facility] Comment on above: Performed By: #### U RTPCR #### [facility] [address] [address] [address] Dwight Waters Creatinine [Mass/Vol] 1.58 mg/dL Critically high 0.70-1.30 [facility] Comment on above: Performed By: #### U RTPCR #### [facility] [address] [address] [address] Dwight Waters EGFR-AF KYRGYZ 56 mL/min/1.73m2 Critically low >=60 [facility] Comment on above: Performed By: #### U RTPCR #### [facility] [address] [address] [address] Dwight Waters EGFR-NON AF KYRGYZ 46 mL/min/1.73m2 Critically low >=60 [facility] Comment on above: Performed By: #### U RTPCR #### [facility] [address] [address] [address] Dwight Waters Globulin (S) [Mass/Vol] 3.5 g/dL Normal [facility] Comment on above: Performed By: #### U RTPCR #### [facility] [address] [address] [address] Dwight Waters Glucose [Mass/Vol] 162 mg/dL Critically high 74-106 [facility] Comment on above: Performed By: #### U RTPCR #### [facility] [address] [address] [address] Dwight Waters Potassium [Moles/Vol] 3.8 mmol/L Normal 3.5-5.1 [facility] Comment on above: Performed By: #### U RTPCR #### [facility] [address] [address] [address] Dwight Waters Protein [Mass/Vol] 7.3 g/dL Normal 6.4-8.2 [facility] Comment on above: Performed By: #### U RTPCR #### [facility] [address] [address] [address] Dwight Waters Sodium [Moles/Vol] 141 mmol/L Normal 136-145 [facility] Comment on above: Performed By: #### U RTPCR #### [facility] [address] [address] [address] Dwight Waters Urea nitrogen [Mass/Vol] 22.0 mg/dL Critically high 7.0-18.0 [facility] Comment on above: Performed By: #### U RTPCR #### [facility] [address] [address] [address] Dwight Waters Urea nitrogen/Creatinine [Mass ratio] 13.9 mg/mg Normal [facility] Comment on above: Performed By: #### U RTPCR #### [facility] [address] [address] [address] Dwight Waters Portable XR Chest Viewson [...] IMPRESSION IMPRESSION: No acute cardiopulmonary disease [facility] Radiology Study observation (narrative) [facility] Portable XR Chest ViewsOrder ed By: Vladislav Omer on 05-15-2022 [facility] URINE DIPSTICK; REFLEX MICRO SCOPY; REFLEX CULTURE PERFORMABLEon 05-15-2022 Appearance (U) Clear Clear [facility] Color (U) Yellow Yellow [facility] Glucose Test strip (U) [Mass/Vol] 100 mg/dL Abnormal Negative [facility] Interpretation and review of laboratory results Abnormal [facility] Ketones (U) [Mass/Vol] Negative Negative [facility] Leukocyte esterase Test strip Ql (U) Large Abnormal Negative [facility] Nitrite Ql (U) Negative Negative [facility] pH (U) 6.0 [pH] 5.0 - 7.0 [facility] Protein (U) [Mass/Vol] 100 mg/dL Abnormal Negative [facility] RBC (U) [#/Vol] Large Abnormal Negative [facility] Specific gravity (U) [Rel density] 1.010 [facility] Urobilinogen (U) [Mass/Vol] 0.2 E.U./dL 0.2 E.U/dL, 1.0 E.U/dL [facility] URINE MICROSCOPIC WITH REFLE X TO CULTUREOrdered By: Rey Bro on 05-15-2022 Bacteria LM Ql (Urine sed) ABSENT ABSENT [facility] Epithelial cells.squamous LM Ql (Urine sed) ABSENT 1/hpf = 1+, 2-5/hpf = 2+, 0/hpf = 0+, ABSENT [facility] Interpretation and review of laboratory results Abnormal [facility] RBC LM.HPF (Urine sed) [#/Area] /[HPF] Abnormal 0 - 2 /HPF [facility] WBC LM.HPF (Urine sed) [#/Area] 10-20 Abnormal 0 - 5 /HPF [facility] CT ABD/PELVIS WO CONon 05-12 CT ABD/PELVIS WO CON Begin Addendum #[address] Lund 3:25 PM EST 05/11/2022. Begin Addendum #2 IMPRESSION below should also contain the followin. 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 The [place] kidneys are progressively atrophic bilaterally compared to [...] are no longer present. The [place] distal right ureter is decompressed beyond this [...] history for renal graft and [place] right urinary drainage, as a discrete ureteroneocystostomy is not identified, and the graft may be draining via a ureteroureterostomy. Urology consultation recommended. 3. The [place] kidneys are bilaterally atrophic, with right renal sinus calcifications consistent with nonobstructing right [place] renal calculi up to 6 mm. Normal [facility] CBC AUTO DIFFon 05-11-2022 BASO # 0.1 103/ul Normal 0.0-0.1 [facility] Comment on above: Performed By: #### U RTPCR #### [facility] [address] [address] [address] Dwight Waters Basophils/100 WBC (Bld) 0.8 % Normal 0.2-2.0 [facility] Comment on above: Performed By: #### U RTPCR #### [facility] [address] [address] [address] Dwight Waters EO # 0.2 103/ul Normal 0.0-0.7 [facility] Comment on above: Performed By: #### U RTPCR #### [facility] [address] [address] [address] Dwight Waters Eosinophils/100 WBC (Bld) 2.5 % Normal 0.9-7.0 [facility] Comment on above: Performed By: #### U RTPCR #### [facility] [address] [place] [address] Dr. Dwight Waters Erythrocyte distribution width (RBC) [Ratio] 12.5 % Normal 11.0-15.0 [facility] Comment on above: Performed By: #### U RTPCR #### [facility] [address] [place] [address] Dr. Dwight Waters Hematocrit (Bld) [Volume fraction] 48.3 % Normal 42.0-54.0 [facility] Comment on above: Performed By: #### U RTPCR #### [facility] [address] [place] [address] Dr. Dwight Waters Hemoglobin (Bld) [Mass/Vol] 15.3 g/dL Normal 14.0-18.0 [facility] Comment on above: Performed By: #### U RTPCR #### [facility] [address] [place] [address] Dr. Dwight Waters IG # 0.01 10e3/ul Normal 0.00-0.03 [facility] Comment on above: Performed By: #### U RTPCR #### [facility] [address] [place] [address] Dr. Dwight Waters IG % 0.2 % Normal 0.0-0.5 [facility] Comment on above: Performed By: #### U RTPCR #### [facility] [address] [place] [address] Dr. Dwight Waters LYMPH # 1.9 103/ul Normal 1.2-3.8 [facility] Comment on above: Performed By: #### U RTPCR #### [facility] [address] [place] [address] Dr. Dwight Waters Lymphocytes/100 WBC (Bld) 29.8 % Normal 20.5-60.0 [facility] Comment on above: Performed By: #### U RTPCR #### [facility] [address] [place] [address] Dr. Dwight Waters MANUAL DIFF REQ NO Normal [facility] Comment on above: Performed By: #### U RTPCR #### [facility] [address] [place] [address] Dr. Dwight Waters MCH (RBC) [Entitic mass] 28.2 pg Normal 25.9-34.0 [facility] Comment on above: Performed By: #### U RTPCR #### [facility] [address] [address] [address] Dwight Waters MCHC (RBC) [Mass/Vol] 31.7 g/dL Normal 29.9-35.2 [facility] Comment on above: Performed By: #### U RTPCR #### [facility] [address] [address] [address] Dwight Waters MCV (RBC) [Entitic vol] 89.1 fL Normal 80.0-94.0 [facility] Comment on above: Performed By: #### U RTPCR #### [facility] [address] [place] [address] Dr. Dwight Waters MONO # 0.6 103/ul Normal 0.3-0.8 [facility] Comment on above: Performed By: #### U RTPCR #### [facility] [address] [place] [address] Dr. Dwight Waters Monocytes/100 WBC (Bld) 9.0 % Normal 1.7-12.0 [facility] Comment on above: Performed By: #### U RTPCR #### [facility] [address] [place] [address] Dr. Dwight Waters NEUT # 3.6 103/ul Normal 1.4-6.5 [facility] Comment on above: Performed By: #### U RTPCR #### [facility] [address] [place] [address] Dr. Dwight Waters Neutrophils/100 WBC (Bld) 57.7 % Normal 43.0-75.0 [facility] Comment on above: Performed By: #### U RTPCR #### [facility] [address] [place] [address] Dr. Dwight Waters Platelet mean volume (Bld) [Entitic vol] 9.9 fL Normal 9.5-13.5 [facility] Comment on above: Performed By: #### U RTPCR #### [facility] [address] [place] [address] Dr. Dwight Waters PLT 249 103/ul Normal 150-450 [facility] Comment on above: Performed By: #### U RTPCR #### [facility] [address] [place] [address] Dr. Dwight Waters RBC 5.42 106/ul Normal 4.70-6.10 [facility] Comment on above: Performed By: #### U RTPCR #### [facility] [address] [place] [address] Dr. Dwight Waters WBC 6.3 103/ul Normal 4.0-11.0 [facility] Comment on above: Performed By: #### U RTPCR #### [facility] [address] [place] [address] Dr. Dwight Waters ER URINE PROFILEon 2 Bilirubin Ql (U) Unable to perform te sting due to color interference. Abnormal NEGATIVE [facility] Comment on above: Performed By: #### U RTPCR #### [facility] [address] [place] [address] Dr. Dwight Waters Clarity (U) TURBID Abnormal CLEAR [facility] Comment on above: Performed By: #### U RTPCR #### [facility] [address] [place] [address] Dr. Dwight Waters Color (U) RED Abnormal YELLOW [facility] Comment on above: Performed By: #### U RTPCR #### [facility] [address] [place] [address] Dr. Dwight Waters ERUAHD A micrscopic examina tion will be performed if indicated. Normal [facility] Comment on above: Performed By: #### U RTPCR #### [facility] [address] [place] [address] Dr. Dwight Waters Glucose Ql (U) Unable to perform te sting due to color interference. Abnormal NEGATIVE [facility] Comment on above: Performed By: #### U RTPCR #### [facility] [address] [place] [address] Dr. Dwight Waters Hemoglobin Ql (U) Unable to perform te sting due to color interference. Abnormal NEGATIVE [facility] Comment on above: Performed By: #### U RTPCR #### [facility] [address] [place] [address] Dr. Dwight Waters Ketones Ql (U) Unable to perform te sting due to color interference. Abnormal NEGATIVE [facility] Comment on above: Performed By: #### U RTPCR #### [facility] [address] [place] [address] Dr. Dwight Waters LEUKOCYTES Unable to perform te sting due to color interference. Abnormal NEGATIVE [facility] Comment on above: Performed By: #### U RTPCR #### [facility] [address] [place] [address] Dr. Dwight Waters Nitrite Ql (U) Unable to perform te sting due to color interference. Abnormal NEGATIVE [facility] Comment on above: Performed By: #### U RTPCR #### [facility] [address] [place] [address] Dr. Dwight Waters pH (U) 6.5 [pH] Normal 5-9 [facility] Comment on above: Performed By: #### U RTPCR #### [facility] [address] [place] [address] Dr. Dwight Waters SPEC GRAVITY 1.020 Normal 1.005-<=1.02 5 [facility] Comment on above: Performed By: #### U RTPCR #### [facility] [address] [place] [address] Dr. Dwight Waters UA PROTEIN Unable to perform te sting due to color interference. Normal NEGATIVE/ TRACE [facility] Comment on above: Performed By: #### U RTPCR #### [facility] [address] [place] [address] Dr. Dwight Waters UR MICRO IND INDICATED Normal [facility] Comment on above: Performed By: #### U RTPCR #### [facility] [address] [place] [address] Dr. Dwight Waters UROBILINOGEN Unable to perform te sting due to color interference. Normal 0.2 - 1.0 [facility] Comment on above: Performed By: #### U RTPCR #### [facility] [address] [place] [address] Dr. Dwight Waters PROF 14(COMP METB)on 022 Albumin [Mass/Vol] 3.8 g/dL Normal 3.4-5.0 [facility] Comment on above: Performed By: #### C MP #### [facility] [address] [place] [address] Dr. Dwight Waters Albumin/Globulin [Mass ratio] 1.1 {ratio} Normal [facility] Comment on above: Performed By: #### C MP #### [facility] [address] [place] [address] Dr. Dwight Waters ALP [Catalytic activity/Vol] 106 U/L Normal 46-116 [facility] Comment on above: Performed By: #### C MP #### [facility] [address] [place] [address] Dr. Dwight Waters ALT [Catalytic activity/Vol] 30 U/L Normal 16-63 [facility] Comment on above: Performed By: #### C MP #### [facility] [address] [place] [address] Dr. Dwight Waters Anion gap [Moles/Vol] 11.7 mmol/L Normal [facility] Comment on above: Performed By: #### C MP #### [facility] [address] [place] [address] Dr. Dwight Waters AST [Catalytic activity/Vol] 16 U/L Normal 15-37 [facility] Comment on above: Performed By: #### C MP #### [facility] [address] [place] [address] Dr. Dwight Waters Bilirubin [Mass/Vol] 0.6 mg/dL Normal 0.2-1.0 [facility] Comment on above: Performed By: #### C MP #### [facility] [address] [place] [address] Dr. Dwight Waters Calcium [Mass/Vol] 9.1 mg/dL Normal 8.5-10.1 [facility] Comment on above: Performed By: #### C MP #### [facility] [address] [place] [address] Dr. Dwight Waters CO2 [Moles/Vol] 27.4 mmol/L Normal 21.0-32.0 [facility] Comment on above: Performed By: #### C MP #### [facility] [address] [address] [address] Dwight Waters Creatinine [Mass/Vol] 1.18 mg/dL Normal 0.70-1.30 [facility] Comment on above: Performed By: #### C MP #### [facility] [address] [address] [address] Dwight Waters EGFR-AF KYRGYZ >60 Normal >=60 [facility] Comment on above: Performed By: #### C MP #### [facility] [address] [address] [address] Dwight Waters EGFR-NON AF KYRGYZ >60 Normal >=60 [facility] Comment on above: Performed By: #### C MP #### [facility] [address] [place] [address] Dr. Dwight Waters Globulin (S) [Mass/Vol] 3.6 g/dL Normal [facility] Comment on above: Performed By: #### C MP #### [facility] [address] [address] [address] Dwight Waters Glucose [Mass/Vol] 192 mg/dL Critically high 74-106 [facility] Comment on above: Performed By: #### C MP #### [facility] [address] [address] [address] Dwight Waters Potassium [Moles/Vol] 4.1 mmol/L Normal 3.5-5.1 [facility] Comment on above: Performed By: #### C MP #### [facility] [address] [place] [address] Dr. Dwight Waters Protein [Mass/Vol] 7.4 g/dL Normal 6.4-8.2 [facility] Comment on above: Performed By: #### C MP #### [facility] [address] [address] [address] Dwight Waters Sodium [Moles/Vol] 142 mmol/L Normal 136-145 [facility] Comment on above: Performed By: #### C MP #### [facility] [address] [place] [address] Dr. Dwight Waters Urea nitrogen [Mass/Vol] 17.0 mg/dL Normal 7.0-18.0 [facility] Comment on above: Performed By: #### C MP #### [facility] [address] [place] [address] Dr. Dwight Waters Urea nitrogen/Creatinine [Mass ratio] 14.4 mg/mg Normal [facility] Comment on above: Performed By: #### C MP #### [facility] [address] [place] [address] Dr. Dwight Waters URINE MICROSCOPIC ONLYon BACTERIA NONE SEEN Normal NONE SEEN [facility] Comment on above: Performed By: #### U RTPCR #### [facility] [address] [place] [address] Dr. Dwight Waters Bacteria identified Cx Nom (U) NOT INDICATED Normal [facility] Comment on above: Performed By: #### U RTPCR #### [facility] [address] [place] [address] Dr. Dwight Waters CAST NONE SEEN Normal NONE SEEN [facility] Comment on above: Performed By: #### U RTPCR #### [facility] [address] [place] [address] Dr. Dwight Waters Crystals LM Nom (Urine sed) NONE SEEN Normal NONE SEEN [facility] Comment on above: Performed By: #### U RTPCR #### [facility] [address] [place] [address] Dr. Dwight Waters Epithelial cells LM Ql (Urine sed) RARE Normal NONE SEEN /RARE [facility] Comment on above: Performed By: #### U RTPCR #### [facility] [address] [place] [address] Dr. Dwight Waters MUCOUS NONE SEEN Normal NONE SEEN [facility] Comment on above: Performed By: #### U RTPCR #### [facility] [address] [place] [address] Dr. Dwight Waters RBC (U) [#/Vol] /uL Abnormal 0-2 [facility] Comment on above: Performed By: #### U RTPCR #### [facility] [address] [address] [address] Dwight Waters WBC NONE SEEN Normal NONE SEEN [facility] Comment on above: Performed By: #### U RTPCR #### [facility] [id number] Dwight Waters K (Potassium)on 01-06-2020 Potassium [Moles/Vol] 4.4 mmol/L Normal 3.7-5.3 [facility] Comment on above: Performed By: #### K #### [facility] [address] [place] [id number] Dip Filler: Kehinde Woodward MD Potassiumon 01-06-2020 Potassium [Moles/Vol] 4.4 mmol/L 3.7 - 5.3 mmol/L [facility] Work Phone: Hemoglobin and Hematocrit, B loodon 10-24-2019 Hematocrit (Bld) [Volume fraction] 23.6 % Low 40.7 - 50.3 % [place], [place] Hemoglobin (Bld) [Mass/Vol] 7.3 g/dL Low 13 - 17 g/dL [place] Interpretation and review of laboratory results Abnormal [place], [place] Hgb/Hcton 10-24-2019 Hematocrit (Bld) [Volume fraction] 23.6 % Low 40.7-50.3 [facility] Comment on above: Performed By: #### H H #### [facility] [address] [place], [place] [id number] Dip Filler: Kehinde Woodward MD Hemoglobin (Bld) [Mass/Vol] 7.3 g/dL Low 13.0-17.0 [facility] Comment on above: Performed By: #### H H #### [facility] [address] [place] [address] Dip Filler: Kehinde Woodward MD Hemoglobinon 08-27-2019 Hemoglobin (Bld) [Mass/Vol] 7.5 g/dL Low 13.0-17.0 [facility] Comment on above: Performed By: #### H GB #### [facility] [address] [place] [address] Dip Filler: Kehinde Woodward MD Hemoglobin (Bld) [Mass/Vol] 7.5 g/dL Low 13 - 17 g/dL [place], [place] Interpretation and review of laboratory results Abnormal [place] Hemoglobinon 08-08-2019 Hemoglobin (Bld) [Mass/Vol] 8.3 g/dL Low 13.0-17.0 [facility] Comment on above: Performed By: #### H GB #### [facility] [address] [place] [address] Dip Filler: Kehinde Woodward MD Hemoglobin (Bld) [Mass/Vol] 8.3 g/dL Low 13 - 17 g/dL [place] Interpretation and review of laboratory results Abnormal [place] Hemoglobinon 08-04-2019 Hemoglobin (Bld) [Mass/Vol] 8.0 g/dL Low 13.0-17.0 [facility] Comment on above: Performed By: #### H GB #### [facility] [address] [place] [address] Dip Filler: Kehinde Woodward MD Hemoglobin A1Con 08-03-2019 HbA1c (Bld) [Mass fraction] % Low 4.8-5.9 [facility] Comment on above: Result Comment: The ADA and AACC recommend providing the estimated average glucose result to permit better patient understanding of their HBA1c result. Performed By: #### G LYHGB #### [facility] [address] [place] [address] Dip Filler: Kehinde Woodward MD Glucose [Mass/Vol] mg/dL mg/dL [place], [place] Comment on above: The ADA and AACC rec ommend providing the estimated average glucose result to permit better patient understanding of their HBA1c result. HbA1c (Bld) [Mass fraction] % Low 4.8 - 5.9 % [facility]- [place], [place] Interpretation and review of laboratory results Abnormal [place], [place] Hemoglobinon 08-01-2019 Hemoglobin (Bld) [Mass/Vol] 8.1 g/dL Low 13.0-17.0 [facility] Comment on above: Performed By: #### H GB #### [facility] [address] [place] [id number] Dip Filler: Kehinde Woodward MD Hemoglobin (Bld) [Mass/Vol] 8.1 g/dL Low 13 - 17 g/dL [place], [place] Interpretation and review of laboratory results Abnormal [place] Hgb/Hcton 06-10-2019 Hematocrit (Bld) [Volume fraction] 24.3 % Low 40.7-50.3 [facility] Comment on above: Performed By: #### H H #### [facility] [address] [place] [address] Dr. [place] [id number] Dip Filler: Kehinde Woodward MD Hemoglobin (Bld) [Mass/Vol] 7.4 g/dL Low 13.0-17.0 [facility] Comment on above: Performed By: #### H H #### [facility] [address] [place] [address] [address] [place] [address] Dip Filler: Kehinde Woodward MD Hemoglobinon 06-01-2019 Hemoglobin (Bld) [Mass/Vol] 7.2 g/dL Low 13.0-17.0 [facility] Comment on above: Performed By: #### H GB #### [facility] [address] [place] [address] Dr. [place], [place] [id number] Dip Filler: Kehinde Woodward MD K (Potassium)on 01-14-2019 Potassium [Moles/Vol] 3.6 mmol/L Low 3.7-5.3 [facility] Comment on above: Performed By: #### K #### [facility] [address] [place] [address] [address] [place] [id number] Dip Filler: Kehinde Woodward MD Otheron 10-19-2018 IMPRESSION: 1. [...] determined by Toxicology Laboratory at [facility]. It has not been cleared or approved [...] Amitriptyline(50), Amphetamine(250), Atenolol(500), Barbiturates(1000), Benzoylecgonine(50), Buprenorphine(50), Bupropion(25), Caffeine(85825), Chlordiazepoxide(50), Chlorpheniramine(100), Chlorpromazine(50), Citalopram(100), Clonazepam(200), Cocaine(25), Codeine(200), [...] Code MISSY, [facility] TOXICOLOGY SCREEN URINE - [facility] 10-12-2018 Drugs identified Screen Nom (U) For Medical Purposes Only, Non-forensic, screen results are presumptive. No confirmatory testing will follow. Invalid Interpretation Code MISSY, OS Comment on above: This Liquid Chromato graphy Mass Spectrometry (LC/MS/MS) test was developed and its performance characteristics determined by Toxicology Laboratory at [facility]. It has not been cleared or approved [...] Amitriptyline(50), Amphetamine(250), Atenolol(500), Barbiturates(200), Benzoylecgonine(50), Buprenorphine(500), Bupropion(25), Caffeine(54316), Cannabinoids(THC)(50), Chlordiazepoxide(50), Chlorpheniramine(100), Chlorpromazine(50), Citalopram(100), Clonazepam(200), Cocaine(25), [...] Time Vital Sign Value Performing Clinician Facility 08-11-2025 10:33-0400 Body height 170.2 cm Rebeca Gutierrez APRN-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: [facility] 08-11-2025 10:33-0400 Body mass index (BMI) [Ratio] 32.41 kg/m2 Rebeca Gutierrez 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: [facility] 08-11-2025 10:33-0400 Body temperature 98.6 [degF] Rebeca Gutierrez 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: [facility] 08-11-2025 10:33-0400 Body weight 93.85 kg Rebeca Gutierrez 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: [facility] 08-11-2025 10:33-0400 Diastolic blood pressure 81 mm[Hg] Rebeca Gutierrez 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: [facility] 08-11-2025 10:33-0400 Heart rate 102 /min Rebeca Gutierrez 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: [facility] 08-11-2025 10:33-0400 Systolic blood pressure 130 mm[Hg] Rebeca Gutierrez 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: [facility] 08-10-2025 08:38-0400 Body height 170.18 cm Zuly Marissaz VOICER-C Work Phone: [facility] 08-10-2025 08:38-0400 Body mass index (BMI) [Ratio] 32.8 kg/m2 Zuly Marissaz VOICER-C Work Phone: [facility] 08-10-2025 08:38-0400 Body temperature 97.8 [degF] Zuly Lexiehholz VOICER-C Work Phone: [facility] 08-10-2025 08:38-0400 Body weight 95.02 kg Zuly Brianholz VOICER-C Work Phone: [facility] 08-10-2025 08:38-0400 Diastolic blood pressure 90 mm[Hg] Zuly Brianholz VOICER-C Work Phone: [facility] 08-10-2025 08:38-0400 Heart rate 73 /min Zuly Aichholz VOICER-C Work Phone: [facility] 08-10-2025 08:38-0400 Respiratory rate 18 /min Zuly Aichholz VOICER-C Work Phone: [facility] 08-10-2025 08:38-0400 Systolic blood pressure 158 mm[Hg] Zuly Aichholz VOICER-C Work Phone: [facility] 05-11-2025 10:38-0400 Diastolic blood pressure 82 mm[Hg] Zuly Aichholz VOICER Work Phone: [facility] 05-11-2025 10:38-0400 Systolic blood pressure 136 mm[Hg] Zuly Aichholz VOICER Work Phone: [facility] 05-11-2025 10:07-0400 Body mass index (BMI) [Ratio] 31.95 kg/m2 Zuly Aichholz VOICER Work Phone: [facility] 05-11-2025 10:07-0400 Body temperature 98.71 [degF] Zuly Aichholz VOICER Work Phone: [facility] 05-11-2025 10:07-0400 Body weight 92.53 kg Zuly Aichholz VOICER Work Phone: [facility] 05-11-2025 10:07-0400 Heart rate 74 /min Zuly Aichholz VOICER Work Phone: [facility] 05-11-2025 10:07-0400 Respiratory rate 20 /min Zuly Aichholz VOICER Work Phone: [facility] 05-11-2025 10:07-0400 SaO2% (BldA) [Mass fraction] 96 % Zuly Aichholz VOICER Work Phone: [facility] 03-21-2025 09:43-0400 Body height 170.2 cm Ahmad Mary MD Work Phone: [facility] 03-21-2025 09:43-0400 Body mass index (BMI) [Ratio] 32.89 kg/m2 Tony Hernandez MD Work Phone: [facility] 03-21-2025 09:43-0400 Body weight 95.25 kg Tony Hernandez MD Work Phone: [facility] 03-21-2025 09:43-0400 Heart rate 80 /min Tony Hernandez MD Work Phone: [facility] 03-21-2025 09:43-0400 Respiratory rate 18 /min Tony Hernandez MD Work Phone: [facility] 03-21-2025 09:43-0400 SaO2% (BldA) [Mass fraction] 95 % Tony Hernandez MD Work Phone: [facility] 02-28-2025 09:07-0400 Body height 170.2 cm Tony Hernandez MD Work Phone: [facility] 02-28-2025 09:07-0400 Body mass index (BMI) [Ratio] 32.26 kg/m2 Tony Hernandez MD Work Phone: [facility] 02-28-2025 09:07-0400 Body weight 93.44 kg Tony Hernandez MD Work Phone: [facility] 02-28-2025 09:07-0400 Diastolic blood pressure 90 mm[Hg] Tony Hernandez MD Work Phone: [facility] 02-28-2025 09:07-0400 Heart rate 86 /min Tony Hernandez MD Work Phone: [facility] 02-28-2025 09:07-0400 Respiratory rate 18 /min Tony Hernandez MD Work Phone: [facility] 02-28-2025 09:07-0400 SaO2% (BldA) [Mass fraction] 95 % Tony Hernandez MD Work Phone: [facility] 02-28-2025 09:07-0400 Systolic blood pressure 138 mm[Hg] Tony Hernandez MD Work Phone: [facility] 01-03-2025 11:01-0500 Diastolic blood pressure 88 mm[Hg] Steph Orzech [facility] 01-03-2025 11:01-0500 Heart rate 67 /min Steph Orzech [facility] 01-03-2025 11:01-0500 Respiratory rate 16 /min Steph Orzech [facility] 01-03-2025 11:01-0500 Systolic blood pressure 124 mm[Hg] Steph Orzech [facility] 12-26-2024 09:32-0500 Diastolic blood pressure 71 mm[Hg] Zuly Aichholz Work Phone: [facility] 12-26-2024 09:32-0500 Heart rate 62 /min Zuly Aichholz Work Phone: [facility] 12-26-2024 09:32-0500 Respiratory rate 16 /min Zuly Aichholz Work Phone: [facility] 12-26-2024 09:32-0500 SaO2% (BldA) [Mass fraction] 95 % Zuly Aichholz Work Phone: [facility] 12-26-2024 09:32-0500 Systolic blood pressure 105 mm[Hg] Zuly Aichholz Work Phone: [facility] 12-26-2024 06:58-0500 Body height 170.18 cm Zuly Aichholz Work Phone: [facility] 12-26-2024 06:58-0500 Body weight 89.35 kg Zuly Bruno Work Phone: [facility] 12-15-2024 09:15-0500 Body height 170.18 cm [facility] 12-15-2024 09:15-0500 Body mass index (BMI) [Ratio] 30.8 kg/m2 [facility] 12-15-2024 09:15-0500 Body weight 89.35 kg [facility] 12-15-2024 09:15-0500 Diastolic blood pressure 72 mm[Hg] [facility] 12-15-2024 09:15-0500 Heart rate 82 /min [facility] 12-15-2024 09:15-0500 Systolic blood pressure 126 mm[Hg] [facility] 11-22-2024 09:35-0500 Diastolic blood pressure 95 mm[Hg] Steph Orzech [facility] 11-22-2024 09:35-0500 Heart rate 68 /min Steph Orzech [facility] 11-22-2024 09:35-0500 Systolic blood pressure 135 mm[Hg] Steph Orzech [facility] 11-07-2024 14:29-0500 Body height 170.2 cm Zuly Bruno VOICER Work Phone: [facility] 11-07-2024 14:29-0500 Body mass index (BMI) [Ratio] 31.83 kg/m2 Zuly Bruno VOICER Work Phone: [facility] 11-07-2024 14:29-0500 Body temperature 98.2 [degF] Zuly Bruno VOICER Work Phone: [facility] 11-07-2024 14:29-0500 Body weight 92.17 kg Zuly Bruno VOICER Work Phone: [facility] 11-07-2024 14:29-0500 Diastolic blood pressure 86 mm[Hg] Zuly Marissaz VOICER Work Phone: [facility] 11-07-2024 14:29-0500 Heart rate 63 /min Zuly Lexiehholz VOICER Work Phone: [facility] 11-07-2024 14:29-0500 Respiratory rate 18 /min Zuly Lexiehholz VOICER Work Phone: [facility] 11-07-2024 14:29-0500 SaO2% (BldA) [Mass fraction] 96 % Zuly Lexiehlatishaz VOICER Work Phone: [facility] 11-07-2024 14:29-0500 Systolic blood pressure 128 mm[Hg] Zuly Aichholz VOICER Work Phone: [facility] 09-08-2024 13:40-0400 Blood Pressure Location Clementina Galea [facility] 09-08-2024 13:40-0400 Diastolic blood pressure 90 mm[Hg] Clementina Galea [facility] 09-08-2024 13:40-0400 Heart rate 66 /min Clementina Galea [facility] 09-08-2024 13:40-0400 Systolic blood pressure 144 mm[Hg] Clementina Galea [facility] 08-23-2024 08:45-0400 Body height 170.2 cm Zuly Marissaz VOICER Work Phone: [facility] 08-23-2024 08:45-0400 Body mass index (BMI) [Ratio] 30.26 kg/m2 Zuly Lexiehlatishaz VOICER Work Phone: [facility] 08-23-2024 08:45-0400 Body temperature 98.01 [degF] Zuly Bruno VOICER Work Phone: [facility] 08-23-2024 08:45-0400 Body weight 87.64 kg Zuly Bruno VOICER Work Phone: [facility] 08-23-2024 08:45-0400 Diastolic blood pressure 80 mm[Hg] Zuly Bruno VOICER Work Phone: [facility] 08-23-2024 08:45-0400 Heart rate 61 /min Zuly Bruno VOICER Work Phone: [facility] 08-23-2024 08:45-0400 Respiratory rate 18 /min Zuly Bruno VOICER Work Phone: [facility] 08-23-2024 08:45-0400 SaO2% (BldA) [Mass fraction] 96 % Zuly Bruno VOICER Work Phone: [facility] 08-23-2024 08:45-0400 Systolic blood pressure 132 mm[Hg] Zuly Bruno VOICER Work Phone: [facility] 06-17-2024 08:37-0400 Body mass index (BMI) [Ratio] 29.43 kg/m2 Rebeca Gutierrez 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: [facility] 06-17-2024 08:37-0400 Body temperature 97.39 [degF] Rebeca Gutierrez 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: [facility] 06-17-2024 08:37-0400 Body weight 85.23 kg Rebeca Gutierrez 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: [facility] 06-17-2024 08:37-0400 Diastolic blood pressure 75 mm[Hg] Rebeca Gutierrez 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: [facility] 06-17-2024 08:37-0400 Heart rate 53 /min Rebeca Gutierrez 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: [facility] 06-17-2024 08:37-0400 Systolic blood pressure 143 mm[Hg] Rebeca Gutierrez 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: [facility] 06-17-2024 08:36-0400 Body mass index (BMI) [Ratio] 29.43 kg/m2 Daisha Sobotka DO Work Phone: [facility] 06-17-2024 08:36-0400 Body temperature 97.39 [degF] Daisha Sobotka DO Work Phone: [facility] 06-17-2024 08:36-0400 Body weight 85.23 kg Daisha Sobotka DO Work Phone: [facility] 06-17-2024 08:36-0400 Diastolic blood pressure 75 mm[Hg] Daisha Sobotka DO Work Phone: [facility] 06-17-2024 08:36-0400 Heart rate 53 /min Daisha Sobotka DO Work Phone: [facility] 06-17-2024 08:36-0400 Systolic blood pressure 143 mm[Hg] Daisha Sobotka DO Work Phone: [facility] 02-26-2024 09:07-0400 Diastolic blood pressure 56 mm[Hg] Candie Almaguer MD Work Phone: [facility] 02-26-2024 09:07-0400 Heart rate 65 /min Candie Almaguer MD Work Phone: [facility] 02-26-2024 09:07-0400 Systolic blood pressure 113 mm[Hg] Candie Almaguer MD Work Phone: [facility] 02-26-2024 09:06-0400 Body height 170.2 cm Candie Almaguer MD Work Phone: [facility] 02-26-2024 09:06-0400 Body mass index (BMI) [Ratio] 28.9 kg/m2 Candie Almaguer MD Work Phone: [facility] 02-26-2024 09:06-0400 Body weight 83.69 kg Candie Almaguer MD Work Phone: [facility] 02-26-2024 09:06-0400 Respiratory rate 20 /min Candie Almaguer MD Work Phone: [facility] 02-26-2024 09:06-0400 SaO2% (BldA) [Mass fraction] 97 % Candie Almaguer MD Work Phone: [facility] 01-23-2024 15:04-0500 Body temperature 97.9 [degF] Reese Sage MD Work Phone: [facility] 01-23-2024 15:04-0500 Diastolic blood pressure 67 mm[Hg] Reese Sage MD Work Phone: [facility] 01-23-2024 15:04-0500 Heart rate 51 /min Reese Sage MD Work Phone: [facility] 01-23-2024 15:04-0500 Respiratory rate 16 /min Reese Sage MD Work Phone: [facility] 01-23-2024 15:04-0500 SaO2% (BldA) [Mass fraction] 94 % Reese Sage MD Work Phone: [facility] 01-23-2024 15:04-0500 Systolic blood pressure 151 mm[Hg] Reese Sage MD Work Phone: [facility] 01-23-2024 10:46-0500 Body mass index (BMI) [Ratio] 30.94 kg/m2 Reese Sage MD Work Phone: [facility] 01-23-2024 10:46-0500 Body weight 89.6 kg Reese Sage MD Work Phone: [facility] 01-18-2024 11:21-0500 Body height 170.2 cm Reese Sage MD Work Phone: [facility] 01-06-2024 09:04-0500 Body height 170.2 cm Zuly Kiana VOICER Work Phone: [facility] 01-06-2024 09:04-0500 Body mass index (BMI) [Ratio] 32.42 kg/m2 Zuly Aichholz VOICER Work Phone: [facility] 01-06-2024 09:04-0500 Body temperature 97.81 [degF] Zuly Lexiehlatishaz VOICER Work Phone: [facility] [facility] 01-[facility]24 09:04-0500 Body weight 93.89 kg Zuly Aichholz VOICER Work Phone: [facility] 01-06-2024 09:04-0500 Diastolic blood pressure 70 mm[Hg] Zuly Lexiehholz VOICER Work Phone: [facility] 01-06-2024 09:04-0500 Heart rate 95 /min Zuly Lexiehholz VOICER Work Phone: [facility] 01-06-2024 09:04-0500 Respiratory rate 17 /min Zuly Aichholz VOICER Work Phone: [facility] 01-06-2024 09:04-0500 SaO2% (BldA) [Mass fraction] 99 % Zuly Lexiehholz VOICER Work Phone: [facility] 01-06-2024 09:04-0500 Systolic blood pressure 138 mm[Hg] Zuly Lexiehholz VOICER Work Phone: [facility] 09-11-2023 10:31-0400 Body temperature 97.81 [degF] Steve Tammy MBBS Work Phone: [facility] 09-11-2023 10:31-0400 Diastolic blood pressure 66 mm[Hg] Steve Tammy MBBS Work Phone: [facility] 09-11-2023 10:31-0400 Heart rate 70 /min Steve Tammy MBBS Work Phone: [facility] 09-11-2023 10:31-0400 Respiratory rate 20 /min Steve Tammy MBBS Work Phone: [facility] 09-11-2023 10:31-0400 SaO2% (BldA) [Mass fraction] 91 % Steve Tammy MBBS Work Phone: [facility] 09-11-2023 10:31-0400 Systolic blood pressure 129 mm[Hg] Steve Tammy MBBS Work Phone: [facility] 09-10-2023 15:50-0400 Body mass index (BMI) [Ratio] 31.99 kg/m2 Steve Tammy MBBS Work Phone: [facility] 09-10-2023 15:50-0400 Body weight 92.67 kg Steve Tammy MBBS Work Phone: [facility] 09-02-2023 07:32-0400 Body height 170.2 cm Steve Tammy MBBS Work Phone: [facility] 08-28-2023 13:33-0400 Body height 170.2 cm Steve Tammy MBBS Work Phone: [facility] 08-28-2023 13:33-0400 Body mass index (BMI) [Ratio] 32.12 kg/m2 Steve Tammy MBBS Work Phone: [facility] 08-28-2023 13:33-0400 Body temperature 97.3 [degF] Steve Tammy MBBS Work Phone: [facility] 08-28-2023 13:33-0400 Body weight 93.03 kg Steve Tammy MBBS Work Phone: [facility] 08-28-2023 13:33-0400 Diastolic blood pressure 41 mm[Hg] Steve Tammy MBBS Work Phone: [facility] 08-28-2023 13:33-0400 Heart rate 116 /min Steve Tammy MBBS Work Phone: [facility] 08-28-2023 13:33-0400 Systolic blood pressure 106 mm[Hg] Steve Tammy MBBS Work Phone: [facility] 06-12-2023 14:50-0400 Body mass index (BMI) [Ratio] 33.8 kg/m2 Rebecasa Gutierrez 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: [facility] 06-12-2023 14:50-0400 Body temperature 97.3 [degF] Rebeca Gutierrez 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: [facility] 06-12-2023 14:50-0400 Body weight 97.89 kg Rebeca Gutierrez 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: [facility] 06-12-2023 14:50-0400 Diastolic blood pressure 77 mm[Hg] Rebeca Gutierrez 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: [facility] 06-12-2023 14:50-0400 Heart rate 76 /min Rebeca Gutierrez 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: [facility] 06-12-2023 14:50-0400 Systolic blood pressure 146 mm[Hg] Rebeca Gutierrez 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: [facility] 01-16-2023 08:57-0500 Body height 170.2 cm [facility] Work Phone: [facility] 01-16-2023 08:57-0500 Body mass index (BMI) [Ratio] 33.66 kg/m2 [facility] Work Phone: [facility] 01-16-2023 08:57-0500 Body temperature 97.3 [degF] [facility] Work Phone: [facility] 01-16-2023 08:57-0500 Body weight 97.48 kg [facility] 3 Work Phone: [facility] 01-16-2023 08:57-0500 Diastolic blood pressure 75 mm[Hg] [facility] Work Phone: [facility] 01-16-2023 08:57-0500 Heart rate 76 /min [facility] 3 Work Phone: [facility] 01-16-2023 08:57-0500 Systolic blood pressure 142 mm[Hg] [facility] Work Phone: [facility] 09-10-2022 09:38-0400 Body height 170.2 cm Ryan Yepez MD Work Phone: [facility] 09-10-2022 09:38-0400 Body mass index (BMI) [Ratio] 33.67 kg/m2 Ryan Yepez MD Work Phone: [facility] 09-10-2022 09:38-0400 Body weight 97.52 kg Ryan Yepez MD Work Phone: [facility] 09-10-2022 09:38-0400 Diastolic blood pressure 83 mm[Hg] Ryan Yepez MD Work Phone: [facility] 09-10-2022 09:38-0400 Heart rate 64 /min Ryan Yepez MD Work Phone: 9(795)236-248566 [place] [address] 09-10-2022 09:38-0400 SaO2% (BldA) [Mass fraction] 96 % Ryan Yepez MD Work Phone: 3(151)149-287266 [place] [address] 09-10-2022 09:38-0400 Systolic blood pressure 129 mm[Hg] Ryan Yepez MD Work Phone: 2(211)741-456266 [place] [address] 07-07-2022 13:48-0400 Diastolic blood pressure 76 mm[Hg] Ryan Yepez MD Work Phone: 3(125)017-190666 [place] [address] 07-07-2022 13:48-0400 Heart rate 82 /min Ryan Yepez MD Work Phone: 3(322)425-593866 [place] [address] 07-07-2022 13:48-0400 SaO2% (BldA) [Mass fraction] 96 % Ryan Yepez MD Work Phone: 1(154)718-246966 [place] [address] 07-07-2022 13:48-0400 Systolic blood pressure 141 mm[Hg] Ryan Yepez MD Work Phone: 0(458)343-454566 [place] [address] 06-27-2022 13:32-0400 Body height 170.2 cm Ryan Yepez MD Work Phone: 8(102)[phone] [place] [address] 06-27-2022 13:32-0400 Body mass index (BMI) [Ratio] 34.24 kg/m2 Ryan Yepez MD Work Phone: 3(635)216-640766 [place] [address] 06-27-2022 13:32-0400 Body temperature 98.6 [degF] Ryan Yepez MD Work Phone: 7(066)281-012566 [place] [address] 06-27-2022 13:32-0400 Body weight 99.16 kg Ryan Yepez MD Work Phone: [facility] 06-27-2022 13:32-0400 Diastolic blood pressure 78 mm[Hg] Ryan Yepez MD Work Phone: [facility] 06-27-2022 13:32-0400 Heart rate 77 /min Ryan Yepez MD Work Phone: [facility] 06-27-2022 13:32-0400 SaO2% (BldA) [Mass fraction] 95 % Ryan Yepez MD Work Phone: [facility] 06-27-2022 13:32-0400 Systolic blood pressure 121 mm[Hg] Ryan Yepez MD Work Phone: [facility] 06-27-2022 10:52-0400 Body height 170.2 cm Rena Brewster RN [facility] 06-27-2022 10:52-0400 Body mass index (BMI) [Ratio] 34.46 kg/m2 Rena Brewster RN [facility] 06-27-2022 10:52-0400 Body temperature 98.2 [degF] Rena Brewster RN [facility] 06-27-2022 10:52-0400 Body weight 99.79 kg Rena Brewster RN [facility] 06-27-2022 10:52-0400 Diastolic blood pressure 73 mm[Hg] Rena Brewster RN [facility] 06-27-2022 10:52-0400 Heart rate 78 /min Rena Brewster RN [facility] 06-27-2022 10:52-0400 Respiratory rate 20 /min Rena Brewster RN [facility] 06-27-2022 10:52-0400 SaO2% (BldA) [Mass fraction] 97 % Rena Brewster RN [facility] 06-27-2022 10:52-0400 Systolic blood pressure 135 mm[Hg] Rena Brewster RN [facility] 06-12-2022 14:23-0400 Body mass index (BMI) [Ratio] 34.59 kg/m2 Stevemassiel Farrari MBBS Work Phone: [facility] 06-12-2022 14:23-0400 Body temperature 97 [degF] Steve Tammy MBBS Work Phone: [facility] 06-12-2022 14:23-0400 Body weight 100.2 kg Stevemassiel Farrari MBBS Work Phone: [facility] 06-12-2022 14:23-0400 Diastolic blood pressure 66 mm[Hg] Stevemassiel Farrari MBBS Work Phone: [facility] 06-12-2022 14:23-0400 Heart rate 63 /min Stevemassiel Farrari MBBS Work Phone: [facility] 06-12-2022 14:23-0400 Systolic blood pressure 133 mm[Hg] Stevemassiel Farrari MBBS Work Phone: [facility] 05-20-2022 15:21-0400 Body temperature 97.9 [degF] Gian Villatoro MD Work Phone: [facility] 05-20-2022 15:21-0400 Diastolic blood pressure 64 mm[Hg] Gian Villatoro MD Work Phone: [facility] 05-20-2022 15:21-0400 Heart rate 55 /min Gian Villatoro MD Work Phone: [facility] 05-20-2022 15:21-0400 Respiratory rate 15 /min Gian Villatoro MD Work Phone: [facility] 05-20-2022 15:21-0400 SaO2% (BldA) [Mass fraction] 95 % Gian Villatoro MD Work Phone: [facility] 05-20-2022 15:21-0400 Systolic blood pressure 145 mm[Hg] Gian Villatoro MD Work Phone: [facility] 05-19-2022 12:15-0400 Body mass index (BMI) [Ratio] 35.87 kg/m2 Gian Villatoro MD Work Phone: [facility] 05-19-2022 12:15-0400 Body weight 103.92 kg Gian Villatoro MD Work Phone: 7(760)154-813931 [place] [address] Comment on above: standing scale 05-16-2022 16:19-0400 Body height 170.2 cm Gian Villatoro MD Work Phone: [facility] 10-19-2018 08:44-0500 BMI (Body Mass Index) 26.58 kg/m2 [facility] Work Phone: 10-19-2018 08:44-0500 BP Diastolic 76 mm[Hg] [facility] Work Phone: 10-19-2018 08:44-0500 BP Systolic 144 mm[Hg] [facility] Work Phone: 10-19-2018 08:44-0500 Height 172.7 cm [facility] Work Phone: 10-19-2018 08:44-0500 Pulse (Heart Rate) 92 /min [facility] Work Phone: 10-19-2018 08:44-0500 Pulse Oximetry 99 % [facility] Work Phone: 10-19-2018 08:44-0500 Respiratory Rate 16 /min [facility] Work Phone: 10-19-2018 08:44-0500 Weight 79.29 kg [facility] Work Phone: 10-12-2018 09:50-0500 BMI (Body Mass Index) 27.24 kg/m2 [facility] Work Phone: 10-12-2018 09:50-0500 Body Temperature 98.6 [degF] [facility] Work Phone: 10-12-2018 09:50-0500 BP Diastolic 80 mm[Hg] [facility] Work Phone: 10-12-2018 09:50-0500 BP Systolic 157 mm[Hg] [facility] Work Phone: 10-12-2018 09:50-0500 Height 169.5 cm [facility] Work Phone: 10-12-2018 09:50-0500 Pulse (Heart Rate) 94 /min [facility] Work Phone: 10-12-2018 09:50-0500 Weight 78.29 kg [facility] Work Phone: Encounters Encounter Date Encounter Type Care Provider Facility Start: 09-27-2025 ambulatory Clementina Montesinos Facility :[facility] Start: 08-11-2025 End: 08-11-2025 Office outpatient visit 25 minutes Rebeca Gutierrez 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: [facility] Comment on above: 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) Start: 08-11-2025 ambulatory REBECA GUTIERREZ Facili ty:[facility] Start: 08-10-2025 End: 08-10-2025 ambulatory Zuly Mejias Kiana VOICER-C Work Phone: [facility] Work Phone: Start: 08-10-2025 End: 08-10-2025 Patient encounter procedure Zuly Magalie Bruno VOICER-C -[facility] Work Phone: Start: 08-10-2025 Patient encounter procedure Zuly Kiana VOICER-C Work Phone: [facility] Start: 07-12-2025 End: 07-13-2025 Refill Zuly Bruno NP Work Phone: [facility] Comment on above: Other polyneuropathy Start: 07-05-2025 End: 07-05-2025 Clinisync Result Encounter Generic External Data Provider [facility] External Department Unsolicited Start: 07-05-2025 End: 07-05-2025 Clinisync Result Encounter Generic External Data Provider [facility] External Department Unsolicited Start: 05-29-2025 End: 05-29-2025 ambulatory Angel Fete [facility] Start: 05-29-2025 End: 05-29-2025 Patient encounter procedure Angel Fete [facility] Start: 05-11-2025 End: 05-11-2025 Bamboo flowsheet Zuly Bruno VOICER Work Phone: [facility] Start: 05-11-2025 End: 05-11-2025 Bamboo flowsheet Zuly Bruno VOICER Work Phone: [facility] Start: 05-11-2025 End: 05-11-2025 Patient encounter procedure Zuly Bruno VOICER Work Phone: [facility] Comment on above: DARLENE (obstructive sle ep apnea) (Primary Dx); Other polyneuropathy; Arteriosclerosis of coronary artery ; Primary hypertension ; Gastroesophageal reflux disease, unspecified whether esophagitis present; Other osteoporosis without current pathological fracture ; Obesity (BMI 30-39.9); Encounter for subsequent annual wellness visit (AWV) in Medicare patient Start: 05-11-2025 End: 05-11-2025 ambulatory ZULY BRUNO Not Available Start: 05-02-2025 End: 05-02-2025 Clinisync Result Encounter Generic External Data Provider [facility] External Department Unsolicited Start: 05-02-2025 End: 05-02-2025 Clinisync Result Encounter Generic External Data Provider [facility] External Department Unsolicited Start: 03-23-2025 End: 03-23-2025 ambulatory Clementina Montesinos Facility:[facility] Start: 03-22-2025 ambulatory [facility] Start: 03-21-2025 End: 03-21-2025 Bamboo flowsheet Tony Hernandez MD Work Phone: [facility] Start: 03-21-2025 End: 03-21-2025 BamPanXo flowsheet Tony Hernandez MD Work Phone: [facility] Start: 03-21-2025 End: 03-21-2025 Office outpatient visit 40 minutes Tony Hernandez MD Work Phone: [facility] Comment on above: Other osteoporosis w ithout current pathological fracture (Primary Dx); Organ transplant; 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); Vitamin D deficiency; Liver transplant status Start: 03-21-2025 End: 03-21-2025 ambulatory TONY HERNANDEZ Not Available Start: 03-09-2025 ambulatory Steph X Orzech Facilit y:[facility] Start: 03-08-2025 End: 03-08-2025 Clinisync Result Encounter [...] Bamboo flowsheet Tony Hernandez MD Work Phone: [facility] Start: 02-28-2025 End: 02-28-2025 Bamboo flowsheet Tony Hernandez MD Work Phone: [facility] Start: 02-28-2025 End: 02-28-2025 Office outpatient new 45 minutes Tony Hernandez MD Work Phone: [facility] Comment on above: Other osteoporosis w ithout current pathological fracture; Liver transplant status; Organ transplant Start: 02-28-2025 End: 02-28-2025 ambulatory TONY HERNANDEZ Not Available Start: 02-24-2025 End: 02-24-2025 Refill Zuly Aichholz VOICER Work Phone: [facility] Comment on above: Elevated blood uric acid level (Primary Dx) Start: 02-20-2025 End: 08-01-2025 Telephone encounter Momo Verdugo MD Work Phone: [facility] Comment on above: Med Refill Start: 02-08-2025 End: 02-08-2025 ambulatory ZULY AICHHOLZ Not Available Start: 02-01-2025 End: 02-01-2025 Refill Zuly Aichholz VOICER Work Phone: [facility] Comment on above: Primary hypertension (CMS/HCC) Start: 01-31-2025 End: 01-31-2025 Clinisync Result Encounter Generic External Data Provider [facility] External Department Unsolicited Start: 01-31-2025 End: 01-31-2025 Clinisync Result Encounter Generic External Data Provider [facility] External Department Unsolicited Start: 01-23-[address] [facility] Start: 01-13-2025 End: 01-13-2025 Orders Only Zuly Aichholz VOICER Work Phone: [facility] Comment on above: Other osteoporosis w ithout current pathological fracture (CMS/HCC) (Primary Dx); Liver transplant status (CMS/HCC); Organ transplant Start: 01-05-2025 End: 01-06-2025 Refill Zuly Bruno VOICER Work Phone: [facility] Comment on above: Other polyneuropathy Start: 01-03-2025 End: 01-03-2025 ambulatory Steph Almodovar Facility: [place] Start: 01-03-2025 End: 01-03-2025 Patient encounter procedure Steph Almodovar [facility] Start: 12-28-2024 End: 12-28-2024 Clinisync Result Encounter Generic External Data Provider [facility] External Department Unsolicited Start: 12-28-2024 End: 12-28-2024 Clinisync Result Encounter Generic External Data Provider [facility] External Department Unsolicited Start: 12-26-2024 Non-patient / Non-visit Zuly olmedo Work Phone: [facility] Work Phone: Start: 12-26-2024 End: 12-26-2024 Admission to same day surgery center Zuly Bruno Work Phone: [facility] Work Phone: Start: 12-26-2024 End: 12-26-2024 ambulatory Zuly Bruno Work Phone: [facility] Work Phone: Start: 12-23-2024 End: 12-23-2024 Refill Zuly Bruno VOICER Work Phone: [facility] Start: 12-15-2024 End: 12-15-2024 ambulatory [facility] Work Phone: Start: 12-15-2024 End: 12-15-2024 Patient encounter procedure [facility] Work Phone: Start: 11-22-2024 End: 11-22-2024 ambulatory Ste[facility]mod[facility]ar [facility] Start: 11-22-2024 End: 11-22-2024 Patient encounter procedure Steph Almodovar [facility] Start: 11-21-2024 End: 11-21-2024 Clinisync Result Encounter Generic External Data Provider [facility] External Department Unsolicited Start: 11-21-2024 End: 11-21-2024 Clinisync Result Encounter Generic External Data Provider [facility] External Department Unsolicited Start: 11-07-2024 End: 11-07-2024 Office outpatient visit 25 minutes Zuly Bruno VOICER Work Phone: [facility] Comment on above: Primary hypertension (CMS/HCC) (Primary Dx); Immunodeficiency, unspecified (CMS/HCC); Liver transplant status (CMS/HCC); Portal hypertension (CMS/HCC); Obesity (BMI 30-39.9); Other osteoporosis without current pathological fracture (CMS/HCC); Kidney stones Start: 11-07-2024 End: 11-07-2024 ambulatory ZULY KIANA Not Available Start: 11-07-2024 End: 11-07-2024 Clinisync Result Encounter Generic External Data Provider [facility] External Department Unsolicited Start: 11-07-2024 End: 11-07-2024 Clinisync Result Encounter Generic External Data Provider [facility] External Department Unsolicited Start: 10-31-2024 End: 10-31-2024 ambulatory [facility] Start: 10-31-2024 End: 10-31-2024 Patient encounter procedure Evan Bolton RPh,PharmD [facility] Start: 10-29-2024 End: 10-29-2024 Refill Zluy Bruno VOICER Work Phone: [facility] Comment on [...] Unsolicited Start: 09-08-2024 End: 09-08-2024 ambulatory Clementina Yadavea Facility:[facility] Start: 09-08-2024 End: 09-08-2024 Patient encounter procedure Clementina Montesinos [facility] Start: 09-07-2024 ambulatory SELF SELF Facility:[facility] Start: 09-05-2024 End: 09-05-2024 ambulatory Angel Fete RPh,PharmD Pharm[facility] Start: 09-05-2024 End: 09-05-2024 Patient encounter procedure Angel Fete RPh,PharmD [facility] Start: 08-29-2024 End: 08-29-2024 Clinisync Result Encounter Generic External Data Provider [facility] External Department Unsolicited Start: 08-29-2024 End: 08-29-2024 Clinisync Result Encounter Generic External Data Provider [facility] External Department Unsolicited Start: 08-24-2024 ambulatory Steph Borges Facility: [facility] Start: 08-23-2024 End: 08-23-2024 Bamboo flowsheet Zuly Bruno VOICER Work Phone: [facility] Start: 08-23-2024 End: 08-23-2024 Bamboo flowsheet Zuly Bruno VOICER Work Phone: [facility] Start: 08-23-2024 End: 08-23-2024 Office outpatient visit 25 minutes Zuly Bruon VOICER Work Phone: [facility] Comment on above: Primary hypertension (CMS/HCC) [...] Start: 08-11-2024 End: 08-12-2024 Refill Zuly Bruno VOICER Work Phone: [facility] Comment on above: Primary hypertension (CMS/HCC) Start: 08-02-2024 End: 08-02-2024 Clinisync Result Encounter Generic External Data Provider [facility] External Department Unsolicited Start: 08-02-2024 End: 08-02-2024 Clinisync Result Encounter Generic External Data Provider [facility] External Department Unsolicited Start: 06-23-2024 End: 06-23-2024 ambulatory Meka Munoz [facility] Start: 06-23-2024 End: 06-23-2024 Patient encounter procedure Meka Munoz [facility] Pharm[facility]patient [facility] Start: 06-17-2024 End: 06-17-2024 Office outpatient visit 25 minutes Daisha Max DO Work Phone: [facility] Comment on above: Liver lesion (Primar y Dx); Liver transplant recipient; High risk medication use; Therapeutic drug monitoring; 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) Start: 05-26-2024 End: 05-26-2024 ambulatory Evan Bolton [facility],PharmD Pharmacy Outpatient [facility] Start: 05-26-2024 End: 05-26-2024 Patient encounter procedure Evan Bolton [facility],PharmD Pharmacy Outpatient [facility] Start: 05-13-2024 End: 05-13-2024 ambulatory [facility] Start: 03-24-2024 End: 03-24-2024 ambulatory Angel Carpio RP,PharmD Pharmacy Outpatient [facility] Start: 03-24-2024 End: 03-24-2024 Patient encounter procedure Angel Carpio RPh,PharmD Pharmacy Outpatient [facility] Start: 03-02-2024 End: 03-02-2024 ambulatory Meka Munoz [facility] Pharmacy Outpatient [facility] Start: 03-02-2024 End: 03-02-2024 Patient encounter procedure Meka Munoz [facility] Pharm[facility] Outpatient [facility] Start: 02-26-2024 End: 02-26-2024 Office outpatient new 30 minutes Candie Almaguer MD Work Phone: [facility] Comment on above: Heart failure, diast olic, acute (Primary Dx) Start: 02-11-2024 Patient encounter procedure Generic Provider [facility] Start: 01-16-2024 End: 01-23-2024 Evaluation and management of inpatient Reese Sage MD Work Phone: [id number] Comment on above: Pleural effusion on right Start: 01-16-2024 End: 01-23-2024 Patient encounter status Reese Sage MD Work Phone: [facility] Work Phone: Start: 01-12-2024 End: [...] minutes Zuly Bruno NP Work [facility] Comment on above: Bilateral lower extr emity edema (Primary Dx); 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); Atherosclerosis 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); Obesity (BMI 30-39.9); DARLENE (obstructive sleep apnea); Tremor; Immunocompromised (CMS/HCC); Primary hypertension ([facility]); Shortness of breath Start: 01-01-2024 Clinisync Result Encounter Generic External Data Provider [facility] External Department Unsolicited Start: 01-01-2024 Clinisync Result Encounter Generic External Data Provider [facility] External Department Unsolicited Start: 10-06-2023 ambulatory Angel Fete RPh,PharmD Pharmacy Outpatient [facility] Start: 10-06-2023 Patient encounter procedure Angel Fete RPh,PharmD Pharmacy Outpatient RX Yanci Start: 08-28-2023 [...] renal disorders Start: 08-19-2023 ambulatory Meka rueda [facility] Pharmacy Outpatient RX Quentin Start: 08-19-2023 Patient encounter procedure Meka Alexander [facility] Pharmacy Outpatient RX Quentin Start: 06-12-2023 End: 06-12-2023 Office outpatient visit 25 minutes Steve LEIGH Work Phone: [facility] Comment on above: 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) Start: 06-10-2023 ambulatory Maren Bar RP,PharmD Pharmacy Outpatient RX Quentin Start: 06-10-2023 Patient encounter procedure Maren Bar RPh,PharmD Pharmacy Outpatient RX Quentin Start: 04-28-2023 End: 04-29-[address] DOCTOR EVANS Facility:[facility]1 Start: 03-12-2023 ambulatory Angel Fete RPh,PharmD Pharmacy Outpatient RX Yanci Start: 03-12-2023 Patient encounter procedure Angel Fete RPh,PharmD Pharmacy Outpatient RX Quentin Start: 03-10-2023 ambulatory Angel Fete RPh,PharmD Pharmacy Outpatient RX Yanci Start: 03-10-2023 Patient encounter procedure Angel Fete RPh,PharmD Pharmacy Outpatient RX Quentin Start: 03-02-2023 End: 03-03-[address] DOCTOR EVANS Facility:[facility]1 Start: 01-16-2023 End: 01-16-2023 Office outpatient visit 25 minutes Daisha Max DO Work Phone: [facility] Comment on above: Abnormal [...] MD Work Phone: [facility] Comment on above: BPH with obstruction /lower urinary tract symptoms (Primary Dx); Encounter for screening for malignant neoplasm of prostate Start: 08-28-2022 End: 08-29-2022 ambulatory ROB BRUNO Facility:[facility]1 Start: 08-14-2022 End: 08-15-[address] DOCTOR EVANS Facility:[facility]1 Start: 07-07-2022 End: 07-07-2022 Patient encounter procedure Ryan Yepez MD Work Phone: [facility] [place] Comment on above: Other hydronephrosis (Primary Dx); [...] MD Work Phone: [facility] [place] Comment on above: Other hydronephrosis (Primary Dx) [...] Phone: [facility] Comment on above: Immunosuppressed sta tus [...] Start: 03-14-2022 ambulatory Comfort Rivera [facility] Work Phone: Pharmacy Outpatient RX Quentin Start: 03-14-2022 Patient encounter procedure Comfort Rivera [facility] Work Phone: Pharmacy Outpatient RX Yanci Start: 06-14-2021 End: 06-14-2021 ambulatory Comfort Rivera [facility] Work Phone: [facility] Start: 06-14-2021 Patient encounter procedure Comfort Rivera [facility] Work Phone: [facility] Start: 01-20-2020 End: 01-27-2020 Patient encounter procedure PEPE CASE Facility:[facility] Start: 01-06-2020 End: 01-07-2020 Patient encounter procedure RENA GUDINO [facility] Start: 01-06-2020 End: 01-06-2020 Subsequent hospital visit by physician [facility] Start: 10-24-2019 End: 10-25-2019 Patient encounter procedure TANA CAMPA [facility] Start: 10-24-2019 End: 10-24-2019 Subsequent hospital visit by physician [facility] Start: 08-27-2019 End: 08-28-2019 Patient encounter procedure RENA GUDINO [facility] Start: 08-27-2019 End: 08-27-2019 Subsequent hospital visit by physician [facility] Start: 08-08-2019 End: 08-09-2019 Patient encounter procedure [facility] Start: 08-08-2019 End: 08-08-2019 Subsequent hospital visit by physician [facility] Start: 08-03-2019 End: 08-04-2019 Patient encounter procedure [facility] Start: 08-03-2019 End: 08-03-2019 Subsequent hospital visit by physician [facility] Start: 08-01-2019 End: 08-02-2019 Patient encounter procedure [facility] Start: 08-01-2019 End: 08-01-2019 Subsequent hospital visit by physician [facility] Start: 06-10-2019 End: 06-11-2019 [facility] Start: 06-01-2019 End: 06-02-2019 Patient encounter procedure [facility] Start: 01-14-2019 End: 01-15-2019 Patient encounter procedure [facility] Start: 11-17-2018 End: 11-17-2018 [facility] Comment on above: Social Work Follow-u p Start: 10-19-2018 End: 10-19-2018 Patient encounter [facility] Pre Transplant Office Comment [...] Start: 10-13-2018 End: 10-13-2018 Patient encounter procedure [facility] Pre Transplant Office Comment on above: Reschedule Outside Medical Allan rds Request Start: 10-12-2018 End: 10-12-2018 Patient encounter procedure Sophie Cary [facility] Pre Transplant Office Comment on above: Alcoholic cirrhosis, unspecified whether ascites present (Primary Dx); Pre-transplant evaluation for liver transplant Start: 10-12-2018 End: 10-12-2018 Office outpatient new 60 minutes Alfredito Restrepo Work Phone: [facility] Pre Transplant Office Comment on above: Alcoholic cirrhosis, unspecified whether ascites present; ESRD (end stage renal disease) on dialysis; Pre-transplant evaluation for liver transplant Start: 10-06-2018 End: 10-06-2018 Patient encounter procedure Yovani Orr Work Phone: Department of Radiology Comment on above: Canceled (Insurance Company Redirected Pt) Start: 10-05-2018 Patient encounter status Comfort Rivera [facility] Work Phone: [facility] Procedures Date Procedure Procedure Detail Performing Clinician Start: 07-05-2025 ALL CBC WITH AUTO DIFF Generic External Data Provider Start: 05-02-2025 ALL CBC WITH AUTO DIFF Generic External Data Provider Start: 03-08-2025 CALCIUM 24 HOUR URINE Generic External Data Provider Start: 03-08-2025 CREATININE 24 HOUR URINE Generic Externa l Data Provider Start: 03-08-2025 SODIUM 24 HOUR URINE Generic External Data Provider Start: 03-07-2025 ALL CBC WITH AUTO DIFF Generic External Data Provider Start: 02-08-2025 End: 02-08-2025 H/O: liver recipient History of liver transplant Zuly Bruno VOICER Work Phone: Start: 02-08-2025 History of renal transplant History of kidney transplant Zuly Bruno VOICER Work Phone: Start: 01-31-2025 ALL CBC WITH AUTO DIFF Generic External Data Provider Start: 01-02-2025 History of renal transplant Steph elder Start: 12-28-2024 ALL CBC WITH AUTO DIFF Generic External Data Provider Start: 12-26-2024 End: 12-26-2024 Esophagogastroduodenoscopy Zuly Bruno Work Phone: Start: 12-26-2024 Colonoscopy Generic Provider Start: 12-26-2024 Colonoscopy Steph Orjosue Start: 11-22-2024 History of renal transplant Steph X Alma elder Start: 11-21-2024 ALL CBC WITH AUTO [...] 01-23-2024 Glucose measurement, blood Kelvin Smith MD, UL Work Phone: Start: 01-23-2024 Glucose measurement, blood Kelvin Smith MD, LU Work Phone: Start: 01-23-2024 Assay [...] Work Phone: Start: 01-20-2024 ITRACONAZOLE LEVEL Melania Angel Alarcon [facility] Work Phone: Start: 01-20-2024 Oscillating [...] Iadna nos quantification each organism Melania Alarcon [facility] Work Phone: Start: 01-18-2024 Echo [...] MD Work Phone: Start: 01-16-2024 Bilirubin direct Timtohy Joseph MD Work Phone: Start: 01-16-2024 CBC AND ELECTRONIC DIFF Timothy Joseph MD Work Phone: Start: 01-16-2024 Complete blood count with white cell differential, automated Timothy Joseph MD Work Phone: Start: 01-16-2024 DARYL AURIS SCREEN BY PCR Carol Ann M Hi ll ADVERTISING SALES EXECUTIVE-SEED PELLETER Work Phone: Start: 01-08-2024 ALL CBC WITH [...] probe tq each organism Evan A Cindy WHIPPEL Work Phone: Start: 08-31-2023 End: 08-31-2023 Iaad [...] AURIS SCREEN BY PCR Carol Ann Rollins ADVERTISING SALES EXECUTIVE-[employer] PELLETER Work Phone: Start: 08-28-2023 CBC AND ELECTRONIC [...] on above: Performed By: #### CMP #### [facility] [address] [place] [address] Dr. Dwight Waters Start: 07-07-2022 Rmvl nfros [...] liver recipient S/P liver transplant Comfort Rivera [facility] Work Phone: Start: 04-08-2020 H/O: liver recipient Liver transplant recipient Comfort Rivera [facility] Work Phone: Start: 01-06-2020 Potassium serum plasma/whole blood ROB PATINO Start: 01-06-2020 Potassium serum plasma/whole blood Elyse cooper Risgrace Work Phone: Start: 11-30-2019 Transplant of kidney Steph Almodovar Start: 11-30-[address] [facility] Start: 10-24-2019 HEMOGLOBIN AND HEMATOCRIT, BLOOD ROB HANSON Start: 10-24-2019 Blood count hemoglobin Tana Katarzyna Campa Work Phone: Start: 09-20-2019 Colonoscopy Generic Provider [...] transplant -donor kidney transplant recipient Comfort Rivera [facility] Work Phone: Start: 06-10-2019 HEMOGLOBIN AND HEMATOCRIT, BLOOD ROB K ASMANI Start: 06-01-2019 Blood count hemoglobin ROB KASMANI Start: 03-22-2019 Lipid 1996 panel - Serum or Plasma Comfort Rivera [facility] Work Phone: Start: 01-14-2019 Potassium [...] liver recipient Liver trans plant recipient Daisha Feliz Sobotka DO Work Phone: H/O: liver recipient Liver trans plant status Zuly Bruno VOICER Work Phone: H/O: liver recipient S/P liver transplant (CMS/HCC) Zuly Bruno VOICER Work Phone: H/O: liver recipient Liver trans plant status (CMS/HCC) Zuly Bruno VOICER Work Phone: H/O: liver recipient Liver trans plant status Tony Hernandez MD Work Phone: H/O: liver recipient Liver trans plant status Tony Hernandez MD Work Phone: H/O: liver recipient History of liver transplant Zuly Bruno VOICER-C Work Phone: History of renal transplant Kidn ey replaced by transplant Steve S Tammy MBBS Work Phone: History of renal transplant Dece ased-donor kidney transplant recipient Ryan Yepez MD Work Phone: History of renal transplant Kidn ey replaced by transplant Daisha Gamboaotka DO Work Phone: History of renal transplant Kidn ey replaced by transplant Steve S Tammy MBBS Work Phone: History of renal transplant Kidn ey replaced by transplant Steve S Tammy MBBS Work Phone: History of renal transplant Dece ased-donor kidney transplant recipient Steve S Tammy MBBS Work Phone: History of renal transplant Kidn ey replaced by transplant Rebeca Gutierrez 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: History of renal transplant Kidn ey replaced by transplant Rebeca Gutierrez 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: Plan of Treatment Date Care Activity Detail Author Start: 12-26-2034 Screening for malignant neoplasm of colon [facility] Start: 09-20-2029 Screening for malignant neoplasm of colon [facility] Start: 07-05-2026 Potassium [Moles/volume] in Serum or Plasma POTASSIUM [facility] Start: 05-11-2026 Medicare Annual Wellness (AWV) Medicare Annual Wellness (AWV) [facility] Start: 05-02-2026 Potassium [Moles/volume] in Serum or Plasma POTASSIUM [facility] Start: 10-24-2025 Potassium [Moles/volume] in Serum or [facility] Start: 09-20-2025 End: 09-20-2025 Patient encounter procedure 09/20/2025 8:00 AM EDT Office Visit [facility] [place] [facility] [address] [place] [phone] [facility] Start: 09-19-2025 End: 09-19-2025 Patient encounter procedure [facility] Start: 08-15-2025 Potassium [Moles/volume] in Serum or Plasma [facility] Start: 08-11-2025 End: 08-11-2025 Patient encounter procedure 08/11/2025 10:30 AM EDT Office Visit [facility] [place] [facility] [address] [place] [address] Rebeca Gutierrez, ADVERTISING SALES EXECUTIVE-[facility] [address] [place] [address] [facility] [place] [facility] Start: 08-10-2025 End: 08-10-2025 Patient encounter procedure [facility] Start: 08-04-2025 End: 08-04-2025 Patient encounter procedure 08/04/2025 10:00 AM EDT Office Visit [facility] [place] [facility] [address] [place] [phone] [facility] [place] [facility] Start: 07-31-2025 Influenza vaccination INFLUENZA VACCINE (#1) [facility] Start: 07-04-2025 Potassium [Moles/volume] in Serum or Plasma [facility] Start: 06-20-2025 Potassium [Moles/volume] in Serum or Plasma POTASSIUM [facility] Start: 06-16-2025 End: 06-16-2025 Patient encounter procedure [facility] Start: 06-13-2025 Potassium [Moles/volume] in Serum or Plasma POTASSIUM [facility] Start: 05-23-2025 Potassium [Moles/volume] in Serum or Plasma POTASSIUM [facility] Start: 05-11-2025 End: 05-11-2025 Patient encounter procedure [facility] Comment on above: DARLENE (obstructive sleep apnea) (Primary D x); Other polyneuropathy; Arteriosclerosis of coronary artery ; Primary hypertension ; Gastroesophageal reflux disease, unspecified whether esophagitis present; Other osteoporosis without current pathological fracture ; Obesity (BMI 30-39.9); Encounter for subsequent annual wellness visit (AWV) in Medicare patient Start: 03-28-2025 Potassium [Moles/volume] in Serum or Plasma POTASSIUM [facility] Start: 03-21-2025 End: 03-21-2026 25-hydroxyvitamin D3 [Mass/volume] in Serum or Plasma Vitamin D 25 hydroxy Total Lab Routine Vitamin D deficiency Expected: 03/21/2025 (Approximate), Expires: 03/21/2026 [facility] Comment on above: Expected: 03/21/2025 (Approximate), Expi res: 03/21/2026 Start: 03-21-2025 End: 03-21-2026 Magnesium [Mass/volume] in Serum or Plasma Magnesium Lab Routine Other osteoporosis without current pathological fracture Expected: 03/21/2025 (Approximate), Expires: 03/21/2026 [facility] Work Phone: Comment on above: Expected: 03/21/2025 (Approximate), Expi res: 03/21/2026 Start: 03-21-2025 End: 03-21-2026 Parathyrin.intact [Mass/volume] in Serum or Plasma PTH, intact Lab Routine Other osteoporosis without current pathological fracture Expected: 03/21/2025 (Approximate), Expires: 03/21/2026 [facility] Comment on above: Expected: 03/21/2025 (Approximate), Expi res: 03/21/2026 Start: 03-21-2025 Potassium [Moles/volume] in Serum or Plasma POTASSIUM [facility] Start: 03-21-2025 End: 03-21-2026 Renal function panel Renal function panel Lab Routine Other osteoporosis without current pathological fracture Expected: 03/21/2025 (Approximate), Expires: 03/21/2026 [facility] Comment on above: Expected: 03/21/2025 (Approximate), Expi res: 03/21/2026 Start: 03-21-2025 End: 03-21-2025 Patient encounter procedure [facility] Comment on above: Arrived Start: 02-28-2025 End: 02-28-2026 25-hydroxyvitamin D3 [Mass/volume] in Serum or Plasma Vitamin D 25 hydroxy Lab Routine Other osteoporosis without current pathological fracture (CMS/HCC) Expected: 02/28/2025 (Approximate), Expires: 02/28/2026 [facility] Comment on above: Expected: 02/28/2025 (Approximate), Expi res: 02/28/2026 Start: 02-28-2025 End: 02-28-2026 Calcium, urine, 24 hour Calcium, urine, 24 hour Lab Routine Other osteoporosis without current pathological fracture (CMS/HCC) Expected: 02/28/2025 (Approximate), Expires: 02/28/2026 [facility] Comment on above: Expected: 02/28/2025 (Approximate), Expi res: 02/28/2026 Start: 02-28-2025 End: 02-28-2026 Creatinine, urine, 24 hour Creatinine, urine, 24 hour Lab Routine Other osteoporosis without current pathological fracture (CMS/HCC) Expected: 02/28/2025 (Approximate), Expires: 02/28/2026 [facility] Comment on above: Expected: 02/28/2025 (Approximate), Expi res: 02/28/2026 Start: 02-28-2025 End: 02-28-2026 Magnesium [Mass/volume] in Serum or Plasma Magnesium Lab Routine Other osteoporosis without current pathological fracture (CMS/HCC) Expected: 02/28/2025 (Approximate), Expires: 02/28/2026 [facility] Work Phone: Comment on above: Expected: 02/28/2025 (Approximate), Expi res: 02/28/2026 Start: 02-28-2025 End: 02-28-2026 Parathyrin.intact [Mass/volume] in Serum or Plasma PTH, intact Lab Routine Other osteoporosis without current pathological fracture (CMS/HCC) Expected: 02/28/2025 (Approximate), Expires: 02/28/2026 [facility] Comment on above: Expected: 02/28/2025 (Approximate), Expi res: 02/28/2026 Start: 02-28-2025 Potassium [Moles/volume] in Serum or Plasma POTASSIUM [facility] Start: 02-28-2025 End: 02-28-2026 Renal function panel Renal function panel Lab Routine Other osteoporosis without current pathological fracture (CMS/HCC) Expected: 02/28/2025 (Approximate), Expires: 02/28/2026 [facility] Comment on above: Expected: 02/28/2025 (Approximate), Expi res: 02/28/2026 Start: 02-28-2025 End: 02-28-2026 Sodium, urine, 24 hour Sodium, urine, 24 hour Lab Routine Other osteoporosis without current pathological fracture (CMS/HCC) Expected: 02/28/2025 (Approximate), Expires: 02/28/2026 [facility] Comment on above: Expected: 02/28/2025 (Approximate), Expi res: 02/28/2026 Start: 02-28-2025 End: 02-28-2025 Patient encounter procedure [facility] Comment on above: Other osteoporosis without current patho logical fracture; Liver transplant status; Organ transplant Start: 02-10-2025 Medicare Annual Wellness (AWV) Medicare Annual Wellness (V) [facility] Start: 02-08-2025 End: 02-08-2025 Patient encounter procedure 02/08/2025 8:40 AM EDT Office Visit [facility] [address] [place] [address] Zuly Bruno NP [address] [place] [address] [facility] Start: 01-23-2025 Potassium [Moles/volume] in Serum or Plasma POTASSIUM [facility] Start: 12-26-2024 [facility] Start: 11-07-2024 End: 11-07-2024 Patient encounter procedure 11/07/2024 2:20 PM EST [facility] [address] [place] [address] Zuly Bruno, BA [address] [place] [address] [facility] Start: 10-25-2024 End: 10-25-2024 Patient encounter procedure 10/25/2024 8:40 AM EST [facility] [address] [place] [address] Zuly Bruno, BA [address] [place] [phone] [facility] Start: 09-29-2024 Influenza vaccination Influenza Vaccine (#1) [facility] Comment on above: Postponed from 07/31/2024 (Patient Refus ed) Start: 09-07-2024 End: 09-07-2024 Telemedicine consultation with patient 09/07/2024 3:00 PM EDT Telemedicine Infectious Diseases Care [facility] [address] [facility] [address] [place] [phone] Evan White DO [address] [place] [address] [facility] Start: 08-31-2024 Screening for malignant neoplasm of lung [facility] Start: 08-23-2024 End: 08-23-2025 Bacteria identified in Urine by Culture Urine culture (clean catch) Microbiology Routine Dysuria Expected: 08/23/2024 (Approximate), Expires: 08/23/2025 [facility] Comment on above: Expected: 08/23/2024 (Approximate), Expi res: 08/23/2025 Start: 08-23-2024 End: 08-23-2025 DXA Skeletal system Views for bone density DEXA bone density Imaging Routine Immunocompromised ([facility]) Organ transplant Expected: 08/23/2024, Expires: 08/23/2025 [facility] Work Phone: Comment on above: Expected: 08/23/2024, Expires: Start: 08-23-2024 End: 08-23-2025 Hemoglobin A1c/Hemoglobin.total in Blood Hemoglobin A1c Lab Routine Blood glucose elevated Expected: 08/23/2024 (Approximate), Expires: 08/23/2025 [facility] Comment on above: Expected: 08/23/2024 (Approximate), Expi res: 08/23/2025 Start: 08-23-2024 End: 08-23-2025 Lipid 1996 panel - Serum or Plasma Lipid panel Lab Routine Mixed hyperlipidemia ([facility]) Expected: 08/23/2024 (Approximate), Expires: 08/23/2025 [facility] Comment on above: Expected: 08/23/2024 (Approximate), Expi res: 08/23/2025 Start: 08-23-2024 End: 08-23-2025 Prostate specific Ag [Mass/volume] in Serum or Plasma PSA Lab Routine Prostate cancer screening Expected: 08/23/2024 (Approximate), Expires: 08/23/2025 [facility] Comment on above: Expected: 08/23/2024 (Approximate), Expi res: 08/23/2025 Start: 08-23-2024 End: 08-23-2025 Thyrotropin [Units/volume] in Serum or Plasma TSH Lab Routine Tremor Expected: 08/23/2024 (Approximate), Expires: 08/23/2025 [facility] Comment on above: Expected: 08/23/2024 (Approximate), Expi res: 08/23/2025 Start: 08-23-2024 End: 08-23-2025 Urinalysis complete panel - Urine Urinalysis with reflex microscopic (clean catch) Lab Routine Dysuria Expected: 08/23/2024 (Approximate), Expires: 08/23/2025 [facility] Comment on above: Expected: 08/23/2024 (Approximate), Expi res: 08/23/2025 Start: 08-23-2024 End: 08-23-2025 US.doppler Carotid arteries - bilateral Vascular US carotid artery duplex bilateral Imaging Routine Left carotid bruit Mixed hyperlipidemia (CMS/HCC) Expected: 08/23/2024, Expires: 08/23/2025 [facility] Comment on above: Expected: 08/23/2024, Expires: Start: 08-23-2024 End: 08-23-2024 Patient encounter procedure 08/23/2024 8:40 AM EDT Office Visit [facility] [address] [place] [phone] Zuly Bruno NP [address] [place] [phone] Primary hypertension (CMS/HCC) (Primary Dx); Portal hypertension (CMS/HCC); Alcoholic cirrhosis of liver without ascites (CMS/HCC) [facility] Comment on above: Primary hypertension (CMS/HCC) (Primary Dx); Portal hypertension (CMS/HCC); Alcoholic cirrhosis of liver without ascites (CMS/HCC) Start: 08-22-2024 End: 08-22-2024 Patient encounter procedure 08/22/2024 9:00 AM EDT Office Visit [facility] [address] [place] [address] Zuly Bruno, BA [address] [place] [phone] [facility] Start: 07-31-2024 Influenza vaccination INFLUENZA VACCINE (#1) [facility] Start: 06-17-2024 End: 06-17-2024 ambulatory [facility] Start: 06-17-2024 End: 06-17-2024 Patient encounter procedure [facility] Start: 03-22-2024 Fasting lipid profile LIPID SCREENING [facility] Start: 03-22-2024 Lipid panel [facility] Start: 02-26-2024 End: 02-26-2024 Patient encounter procedure 02/26/2024 9:30 AM EDT Office Visit [facility] [address] [place] [phone] Candie Almaguer MD [address] [place] [phone] [facility] Start: 02-11-2024 End: 02-11-2024 Patient encounter procedure 02/11/2024 10:30 AM EDT Office Visit [facility] [address] [place] [phone] Zuly Bruno NP [address] [place] [phone] [facility] Start: 02-09-2024 End: 02-09-2024 Telemedicine consultation with patient 02/09/2024 3:30 PM EDT Telemedicine Infectious Diseases Care [facility] 1581 Virgilio Diaz [address] [place] [phone] Cristóbal Ko MD [address] [id number] Infectious Diseases Care [facility] Start: 01-15-2024 End: 01-15-2024 ambulatory [facility] Start: 01-15-2024 End: 01-15-2024 Patient encounter procedure [facility] Start: 01-06-2024 End: 01-06-2026 [...] [facility] [address] [place] [address] Zuly Bruno NP [address] [place] [id number] [facility] Start: 12-08-2023 End: 09-07-2024 CT Chest WO contrast [facility] Work Phone: Start: 12-01-2023 COVID-19 VACCINE (2 - Moderna risk series) COVID-19 VACCINE (2 - Moderna risk series) [facility] Start: 09-23-2023 End: 09-23-[address] [facility] Start: 09-23-2023 End: 09-23-2023 Telemedicine consultation with patient 09/23/2023 4:00 PM EDT Telemedicine Infectious Diseases Care [facility] [address] [phone] Cristóbal Ko MD [address] [facility] Start: 09-15-2023 End: 09-10-2024 ITRACONAZOLE LEVEL [facility] Start: 08-25-2023 End: 08-25-2024 ALLOSCREEN RECIPIENT (POST TX PRA) ALLOSCREEN RECIPIENT (POST TX PRA) Lab Routine Kidney replaced by transplant Aftercare following organ transplant Immunosuppressed status High risk medication use Other general symptoms and signs Abnormal blood chemistry Expected: 08/25/2023, Expires: 08/25/2024 [facility] Comment on above: Expected: 08/25/2023, Expires: Start: 07-31-2023 Influenza vaccination [facility] Start: 06-12-2023 End: 06-12-2023 Patient encounter procedure 06/12/2023 Office Visit Transplant Surgery Steve Munoz MBBS [address] [place] [address] [facility] Start: 03-11-2023 End: 03-11-2023 Telemedicine consultation with patient 03/11/2023 Telemedicine Urology Ryan Yepez MD [address] [facility] [address] [place] [address] [facility] [place] Start: 01-16-2023 End: 01-16-2023 Patient encounter procedure 01/16/2023 Office Visit Transplant Surgery [facility]plant [facility] Start: 10-31-2022 End: 10-31-2022 Patient encounter procedure 10/31/2022 Office Visit Transplant Surgery Steve Munoz MBBS [address] [place] [phone] [facility] Start: 09-10-2022 End: 09-10-2023 PSA screening PSA, SCREENING Lab Routine BPH with obstruction/lower urinary tract symptoms Encounter for screening for malignant neoplasm of prostate Expected: 09/10/2022 (Approximate), Expires: 09/10/2023 [facility] Comment on above: Expected: 09/10/2022 (Approximate), Expi res: 09/10/2023 Start: 08-11-2022 End: 08-11-2022 Patient encounter procedure 08/11/2022 Office Visit Urology Ryan Yepez MD [address] [facility] [address] [place], [place] [phone] [facility] [place] Start: 07-31-2022 Influenza vaccination [facility] Start: 07-07-2022 End: 07-07-2022 Patient encounter procedure 07/07/2022 Office Visit Urology Ryan Yepez MD [address] [facility] [address] [place] [address] [facility] Start: 07-07-2022 End: 07-07-2023 FLUORO IMAGING FOR UROLOGY [facility] Comment on above: Expected: 07/07/2022, Expires: 3 1 Occurrences starti ng 07/07/2022 until 07/07/2022 Start: 06-27-2022 End: 06-27-2022 Patient encounter procedure 06/27/2022 Office Visit Urology Ryan Yepez MD [address] [facility] [address] [place] [phone] [facility] Start: 06-27-2022 End: 06-27-2023 Basic metabolic 2000 panel - Serum or Plasma BASIC METABOLIC PANEL Lab Routine Other hydronephrosis Expected: 06/27/2022, Expires: 06/27/2023 [facility] Comment on above: Expected: 06/27/2022, Expires: Start: 06-27-2022 End: 06-27-2022 Patient encounter procedure 06/27/2022 Appointment Computerized Tomography Scan Ryan Yepez MD [address] [facility] [address] [place] [phone] Department of Radiology Start: 06-15-2022 End: 05-16-2023 CT Abdomen and Pelvis WO contrast CT ABDOMEN/PELVIS WITHOUT CONTRAST Imaging Routine FAYE (acute kidney injury) Expected: 06/15/2022 (Approximate), Expires: 05/16/2023 [facility] Work Phone: Comment on above: Expected: 06/15/2022 (Approximate), Expi res: 05/16/2023 Start: 06-12-2022 End: 06-12-2022 Patient encounter procedure 06/12/2022 Office Visit Transplant Surgery Steve Munoz MBBS [address] [place] [address] [facility] Start: 06-11-2022 End: 06-11-2023 BK VIRUS DNA QN, PCR, PLASMA BK VIRUS DNA QN, PCR, PLASMA Lab Routine Kidney replaced by transplant Liver replaced by transplant Abnormal blood chemistry Expected: 06/11/2022, Expires: 06/11/2023 [facility] Comment on above: Expected: 06/11/2022, Expires: Start: 06-04-2022 End: 06-04-2022 Patient encounter procedure 06/04/2022 Office Visit [facility] Start: 10-18-2021 End: 10-18-2021 Patient encounter procedure 10/18/2021 Office Visit Transplant Surgery Steve Munoz MBBS [address] [place] [address] [facility] Start: 07-31-2021 Influenza vaccination INFLUENZA VACCINE (#1) [facility] Start: 07-26-2021 End: 07-26-2021 Patient encounter procedure 07/26/2021 Office Visit Transplant Surgery [facility] Start: 2021 Prostate specific antigen measurement [facility] Start: 2021 Screening for malignant neoplasm of lung LUNG CANCER SCREENING [facility] Start: 2021 Zoster vaccine hzv live for subcutaneous use ZOSTER (SHINGLES) VACCINE (1 of 2) [facility] Start: 09-20-2020 Colonoscopy COLORECTAL CANCER SCREENING DISCUSSION [facility] Start: 09-20-2020 Screening for malignant neoplasm of colon [facility] Start: 07-31-2019 Influenza vaccination Flu vaccine (#1) [place] Start: 05-22-2019 Annual Wellness Visit (AWV) Annual Wellness Visit (AWV) [place] Start: 04-18-2019 End: 10-19-2019 Ultrasonography of abdomen US ABDOMEN RUQ/LIVER/GB Routine Cirrhosis of liver without ascites, unspecified hepatic cirrhosis type Expected: 04/18/2019 (Approximate), Expires: 10/19/2019 [facility] Work Phone: Comment on above: Expected: 04/18/2019 (Approximate), Expi res: 10/19/2019 Start: 01-25-2019 End: 01-25-2019 Ambulatory 01/25/2019 Office Visit Gastroenterology Christin Elizabeth, 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 [address] [place] [address] Division of Gastroenterology and Hepatology Gavin [...] for liver transplant Expected: 10/12/2018, Expires: 10/12/2019 [facility] Work Phone: Comment on above: Expected: 10/12/2018, Expires: 9 Start: 10-12-2018 End: 10-12-2019 TYPE AND SCREEN - NOT FOR TRANSFUSION TYPE AND SCREEN - NOT FOR TRANSFUSION Routine Alcoholic cirrhosis, unspecified whether ascites present Pre-transplant evaluation for liver transplant Expected: 10/12/2018, Expires: 10/12/2019 [facility] Work Phone: Comment on above: Expected: 10/12/2018, Expires: 9 Start: 07-31-2018 Influenza vaccination INFLUENZA VACCINE (#1) [facility] Work Phone: Start: 2011 Fasting lipid profile LIPID SCREENING [facility] Work Phone: Start: 2011 Lipid screen Lipid screen [place], [place] Start: 1990 DTaP/Tdap/Td vaccine (1 - Tdap) DTaP/Tdap/Td vaccine (1 - Tdap) [place] Start: 1990 Hepatitis B vaccination HEP B VACCINE (1 of 3 - 19+ 3-dose series) [facility] Start: 1990 Hepatitis B Vaccine (1 of 3 - Risk Recombivax 3-dose series) Hepatitis B Vaccine (1 of 3 - Risk Recombivax 3-dose series) [place] Start: 1990 Pneumococcal vaccination PNEUMOCOCCAL VACCINE SERIES (1 of 2 - PCV) [facility] Start: 1990 Third diphtheria, tetanus and acellular pertussis (DTaP) vaccination [facility] Start: 1990 Zoster vaccine hzv live for subcutaneous use ZOSTER (SHINGLES) VACCINE (1 of 2) [facility] Start: 1990 [facility] Start: 1989 Tetanus vaccination TETANUS [facility] Start: 1986 HIV screen HIV screen [place], [place] Start: 02-17-1984 HIV screening HIV SCREENING DISCUSSION [facility] Work Phone: Start: 1983 COVID-19 VACCINE (1) COVID-19 VACCINE (1) [facility] Start: 1982 DTaP/Tdap/Td vaccine (1 - Tdap) DTaP/Tdap/Td vaccine (1 - Tdap) [place] Start: 1977 Pneumococcal 0-64 years Vaccine (1 of 3 - PCV13) Pneumococcal 0-64 years Vaccine (1 of 3 - PCV13) [place] Start: 1977 PNEUMOCOCCAL VACCINE SERIES (1 - PCV) PNEUMOCOCCAL VACCINE SERIES (1 - PCV) [facility] Start: 1977 PNEUMOCOCCAL VACCINE SERIES (1 of 2 - PCV) PNEUMOCOCCAL VACCINE SERIES (1 of 2 - PCV) [facility] Start: 1977 [facility] Start: 02-17-1976 COVID-19 VACCINE (#1) COVID-19 VACCINE (#1) [facility] Start: 02-17-1976 [facility] Start: 1971 COVID-19 VACCINE (#1) COVID-19 VACCINE (#1) [facility] Start: 1971 Hepatitis B vaccination HEP B VACCINE (1 of 3 - 3-dose series) [facility] Start: 1971 Medicare Annual Wellness (AWV) Medicare Annual Wellness (AWV) [facility] Start: 1971 Screening for malignant neoplasm of colon [facility] Start: 1971 Tetanus vaccination [facility] BK VIRUS DNA QN, PCR , PLASMA BK VIRUS DNA QN, PCR, PLASMA Lab Routine Kidney replaced by transplant Liver replaced by transplant Abnormal blood chemistry 06/12/2022 3:38 PM EDT [facility] CALCULI, URINARY (KIDNEY STONE) CALCULI, URINARY (KIDNEY STONE) Fluids Routine 05/19/2022 8:16 AM EDT [facility] Work Phone: CANNABINOIDS, QUANT (URINE)THC CONFIRMATION CANNABINOIDS, QUANT (URINE)THC CONFIRMATION Routine Alcoholic cirrhosis, unspecified whether ascites present ESRD (end stage renal disease) on dialysis Pre-transplant evaluation for liver transplant 10/12/2018 12:[address] [facility] Work Phone: End: 09-10-2024 CHEM 6 (LYTES, BUN CREA) [facility] EBV VCA IGG AB EBV VCA IGG AB R outine Alcoholic cirrhosis, unspecified whether ascites present ESRD (end stage renal disease) on dialysis Pre-transplant evaluation for liver transplant 10/12/2018 12:[address] [facility] Work Phone: Fungus identified in Unspecified specimen by Culture [facility] HLA TYPING (SOLID ORGAN) HLA TYPING (SOLID ORGAN) Routine Alcoholic cirrhosis, unspecified whether ascites present ESRD (end stage renal disease) on dialysis Pre-transplant evaluation for liver transplant 10/12/2018 12:[address] [facility] Work Phone: HSV 1 AND 2 IGG ANTIBODY HSV 1 AND 2 IGG ANTIBODY Routine Alcoholic cirrhosis, unspecified whether ascites present ESRD (end stage renal disease) on dialysis Pre-transplant evaluation for liver transplant 10/12/2018 12:[address] [facility] Work Phone: MR Abdomen WO and W contrast IV MRI ABDOMEN WITH AND WITHOUT CONTRAST Imaging Routine Liver lesion Ordered: 06/17/2024 [facility] Comment on above: Ordered: 06/17/2024 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 specific culture [facility] Patient Education Hemorrhoids ED Diverticulosis Know your Meds [facility] Work Phone: PLACEMENT NEPHROSTOM Y CATHETER PERCUTANEOUS W/ IMAGE GUIDANCE PLACEMENT NEPHROSTOMY CATHETER PERCUTANEOUS W/ IMAGE GUIDANCE Imaging Routine Hydronephrosis due to obstruction of ureteral orifice FAYE (acute kidney injury) 05/17/2022 11:08 AM EDT [facility] GA POST VOID RESIDUAL GA POST VO ID RESIDUAL GA - OFFICE PERFORMED Routine BPH with obstruction/lower urinary tract symptoms Ordered: 09/10/2022 [facility] Comment on above: Ordered: 09/10/2022 PTH INTACT PTH INTACT Routi ne Alcoholic cirrhosis, unspecified whether ascites present ESRD (end stage renal disease) on dialysis Pre-transplant evaluation for liver transplant 10/12/2018 12:[address] [facility] Work Phone: RUBEOLA IGG AB (IMMU NE STATUS) RUBEOLA IGG AB (IMMUNE STATUS) Routine Alcoholic cirrhosis, unspecified whether ascites present ESRD (end stage renal disease) on dialysis Pre-transplant evaluation for liver transplant 10/12/2018 12:[address] [facility] Work Phone: End: 01-16-2024 Standard ECG ECG ECG Routine One Time for 1 Occurrences starting 01/16/2024 until 01/16/2024 [facility] Comment on above: One Time for 1 Occurrences starting 12/31 until 01/16/2024 End: 09-10-2024 TACROLIMUS LEVEL, TROUGH (PRE DRUG LEVEL) [facility] VARICELLA IGG AB (IM M STATUS) VARICELLA IGG AB (IMM STATUS) Routine Alcoholic cirrhosis, unspecified whether ascites present ESRD (end stage renal disease) on dialysis Pre-transplant evaluation for liver transplant 10/12/2018 12:57 PM EST [facility] Work Phone: Immunizations Immunization Date Immunization Notes Care Provider [facility] 11-01-2024 influenza virus vaccine, unspecified formulation Steph Orzech [facility] 11-01-2024 influenza, seasonal, injectable, preservative free Zuly Bruno VOICER Work Phone: [facility] 11-03-2023 influenza virus vaccine, unspecified formulation Generic Provider [facility] 11-03-2023 Influenza, injectabl e, Madin [place] Canine Kidney, preservative free, quadrivalent Generic Provider [facility] 11-03-2023 Moderna SARS-CoV-2 50mcg/0.5mL Booster Generic Provider [facility] 08-28-2022 influenza virus vaccine, unspecified formulation Steph Orzech [facility] 08-28-2022 influenza, injectabl e, quadrivalent, preservative free Generic Provider [facility] 09-30-2021 influenza virus vaccine, unspecified formulation Steph Orzech [facility] 09-30-2021 influenza, injectabl e, quadrivalent, preservative free Generic Provider [facility] 09-30-2021 SARS-CoV-2 (COVID-19 ) [id number] vaccine Steph Orzech [facility] 02-21-2021 SARS-CoV-2 (COVID-19 ) mRNA-[id number] vaccine Steph Orzech [facility] 01-24-2021 SARS-CoV-2 (COVID-19 ) [id number] vaccine Steph HahniTiffin [facility] 10-16-2020 influenza virus vaccine, unspecified formulation Steph JovaniiTiffin [facility] 10-16-2020 influenza, injectabl e, quadrivalent, contains preservative Generic Provider [facility] Payers Date Payer Category Payer Self-pay 2023 Medicare (Managed Care) MEDICARE [employer] HMO [id number] 2019 Unknown [id number] 2019 Unknown [facility] [id number] 2019-Present [id number] 2018 Medicaid MEDICAID [facility] DEPT OF JOB xxxxxxxxxxxx 2018-Present [phone] [address] [place] [address] xxxxxxxxxxxx [id number] 2018 Medicaid MEDICAID MEDICAI D [id number] 2018-Present [address] [place] [address] [id number]. [id number] 2018 Medicaid [id number]. [id number] 2018 Medicare MEDICARE MEDICAR E PART A AND B xxxxxxxxxxx 2018-Present [phone] [address] [address] [place] [address] xxxxxxxxxxx [id number]. [id number] 2018 Medicare [id number] 2018 Medicare MEDICARE MEDICAR E A AND B [id number] 2018-Present [address] [place] [address] [id number]. [id number] 2018 Medicare [id number]. 1.13.172.2. [id number] 1971 Unknown [id number] 2.16.840.1.888034.3.579.2. 173 1971 Unknown [id number] 2.16.840.1.391616.3.579.2. 173 1971 Unknown [id number] 2.16.840.1.153025.3.579.2. 173 1971 Unknown [id number] 2.16.840.1.177396.3.579.2. 173 1971 Unknown [id number] 2.16.840.1.784318.3.579.2. 173 1971 Unknown [id number] 2.16.840.1.733649.3.579.2. 173 1971 Unknown [id number] 2.16.840.1.239307.3.579.2. 173 1971 Unknown [id number] 2.16.840.1.298343.3.579.2. 173 1971 Unknown [id number] 2.16.840.1.319343.3.579.2. 647 1971 Unknown [id number] 2.16.840.1.971033.3.579.2. 593 1971 Unknown [id number] 2.16.840.1.226712.3.579.2. 593 1971 Unknown [id number] 2.16.840.1.306308.3.579.2. 593 1971 Unknown [id number] 2.16.840.1.097365.3.579.2. 593 1971 Unknown [id number] 2.16.840.1.316993.3.579.2. 593 1971 Unknown [id number] 2.16.840.1.234150.3.579.2. 593 1971 Unknown [id number] 2.16.840.1.780535.3.579.2. 593 1971 Unknown [id number] 2.16.840.1.683157.3.579.2. 593 1971 Unknown [id number] 2.16.840.1.006944.3.579.2. 593 1971 Unknown [id number] 2.16.840.1.423939.3.579.2. 593 1971 Unknown [id number] 2.16.840.1.811555.3.579.2. 593 1971 Unknown [id number] 2.16.840.1.407895.3.579.2. 593 1971 Unknown [id number] 2.16.840.1.883199.3.579.2. 593 1971 Unknown [id number] 2.16.840.1.954047.3.579.2. 593 1971 Unknown [id number] 2.16.840.1.854223.3.579.2. 593 1971 Unknown [id number] 2.16.840.1.489683.3.579.2. 727 1971 Unknown [id number] 2.16840.1.749574.3.579.2. 727 1971 Unknown [id number] 2.16.840.1.318076.3.579.2. 727 1971 Unknown [id number] 2.840.1.215305.3.579.2. 727 1971 Unknown [id number] 2.840.1.616022.3.579.2. 727 1971 Unknown [id number] .840.1.212668.3.579.2. 727 1971 Unknown [id number] 2.840.1.514452.3.579.2. 1259 1971 Unknown [id number] .840.1.043954.3.579.2. 1259 1971 Unknown [id number] 2.840.1.370226.3.579.2. 1259 1971 Unknown [id number] .840.1.079098.3.579.2. 9 1971 Unknown [id number] .840.1.726741.3.579.2. 1259 1971 Unknown [id number] 840.1.883225.3.579.2. 1259 1971 Unknown [id number] .840.1.815548.3.579.2. 594 1971 Unknown [id number] 840.1.385070.3.579.2. 594 1959 Medicaid [id number] 1959 Medicare [id number] Unknown [id number] 2840.1.746948.3.579.2. 531 Social History Date Type Detail Facility Start: 07-19-2018 End: 10-19-2018 Tobacco smoking status NHIS Former smoker [facility] Start: 07-19-1988 End: 05-14-2018 History of tobacco use Current smoker [facility] Work Phone: Start: 07-19-1988 End: 05-14-2018 History of tobacco use Cigarette Smoker [facility] Work Phone: Start: 10-19-2018 End: 09-05-2024 Cigarettes smoked current (pack per day) - Reported [facility] End: 07-19-1994 History of tobacco use Chews Tobacco [facility] Work Phone: Start: 1970 Sex Assigned At Not on file [facility] Work Phone: Start: 11-03-2018 Alcohol intake Current non-drinker of alcohol (finding) [place] Start: 06-22-2018 Alcohol Comment Hx of alcoholism [place] Start: 11-03-2018 End: 09-05-2024 Alcohol intake No [facility] Start: 07-19-2018 Tobacco use and exposure Former user [facility] Start: 09-06-2020 End: 09-05-2024 Alcohol intake Ex-drinker (finding) [facility] Start: 07-19-2018 Alcohol Comment stopped 05/14/2018 [facility] Start: 05-05-2022 End: 01-16-2023 Exposure to SARS-CoV-2 (event) Not sure [facility] Start: 07-07-2018 Gender identity Identifies as male gender (finding) [facility] Start: 01-16-2022 Sexual orientation Heterosexual (finding) [facility] Start: 11-03-2023 Tobacco use and exposure [...] Never smoked tobacco (finding) [facility] Do you belong to any clubs or organizations such as [employer]beterian groups, unions, fraternal or athletic groups, or school groups? Yes [facility] Are you now , , , , never or living with a partner? [facility] Start: 07-05-2018 End: 12-15-2024 Sex Male (finding) [facility] Start: 1970 Sex Assigned At Male [facility] Do you feel stress - tense, restless, nervous, or anxious, or unable to sleep at night because your mind is troubled all the time - these days [OSQ] Not at all [facility] Medical Equipment Procedure Code Equipment Code Equipment Original Text Equipment Identifier Dates [id number] Start: 05-23-2020 [id number] Start: 04-12-2020 [id number] Start: 05-17-2022 Comment on above: Description: Implant time-out completed by intra-procedural staff including this RN, museum exhibit technician, and performing physician. The following was [...] goal Functional Status Date Assessment Result Facility 05-11-2025 Patient Health Quest ionnaire 2 item (PHQ-2) [Reported] [facility] 05-04-2025 Patient Health Quest ionnaire 2 item (PHQ-2) [Reported] [facility] 01-03-2025 Functional Status N/A [facility] 11-22-2024 Functional Status N/A [facility] 09-08-2024 Functional Status N/A [facility] 01-16-2024 Are you deaf, or do you have serious difficulty hearing No 01/16/2024 1:01 AM Izzy Kirkland RN No [facility] 01-16-2024 Are you blind, or do you have serious difficulty seeing, even when wearing glasses No 01/16/2024 1:01 AM Izzy Kirkland RN No [facility] 01-16-2024 Do you have serious difficulty walking or climbing stairs No 01/16/2024 1:01 AM Izzy Kirkland RN No [facility] 01-16-2024 Do you have difficul ty dressing or bathing No 01/16/2024 1:01 AM Izzy Kirkland RN No [facility] 01-16-2024 Because of a physica l, mental, or emotional condition, do you have difficulty doing errands alone such as visiting a physician's office or shopping No 01/16/2024 1:01 AM Izzy Kirkland RN No [facility] [place] Status Date Assessment Result Facility 01-16-2024 Because of a physica l, mental, or emotional condition, do you have serious difficulty concentrating, remembering, or making decisions No 01/16/2024 1:01 AM Izzy Kirkland RN No [facility] Clinical Notes 06-14-2021 to 08-11-2025 JEANNA Hess - 08/11/2025 10:30 AM EDTPatiedward Enrique Lawrence - 05/29/2025 1:53 PM NAVEEN CARI - 05/11/2025 10:00 AM EDYousif Bruno NP - 05/11/2025 10:00 AM EDT Note Date & Type Note Facility 08-11-2025 History of Present illness Narrative Images from the original note were not included. George Styles is a 55 y.o. 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 No longer follows with a local photogrammetry airplane pilot. 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 Body mass index is 32.41 kg/m . Cardiovascular: no swelling Neuro: no [...] Take 1 capsule by mouth at bedtime. melatonin 3 MG tablet Take 1 tablet [...] 1 tablet by mouth 3 times weekly. Tacrolimus (PROGRAF) 0.5 MG capsule Take 1 capsule by mouth every morning and take 1 capsule by mouth every evening. Tacrolimus 0.2 MG Pack Discontinued on 10/03/24 for low Tacrolimus level. Patient started on 0.5mg capsules. Tamsulosin HCl 0.4 MG capsule Take 1 capsule by mouth daily. Torsemide 20 MG tablet TAKE 1 TABLET BY MOUTH DAILY ursodiol 300 MG capsule Take 2 capsules by mouth every 12 hours. Labs: Lab Results Component Value Date WBC 5.1 07/05/2025 HGB 15.7 07/05/2025 HCT 45.9 07/05/2025 PLATELET 228 07/05/2025 Lab Results Component Value Date SODIUM 141 07/05/2025 CHLORIDE 106 07/05/2025 BUN 21 07/05/2025 POTASSIUM 3.6 07/05/2025 CREATSERUM 1.12 07/05/2025 GLUCOSE 118 07/05/2025 Prot/Creat Ratio Date Value Ref Range Status 10/10/2024 0.13 Final Lab Results Component Value Date TACROLIMUS 5.2 07/04/2025 Current Immunosuppressive Medication(s) Immunosuppressive Agents Mycophenolate sodium (MYFORTIC) [address] tablet DR Take 1 tablet by mouth every 12 hours. Tacrolimus (PROGRAF) 0.5 MG capsule Take 1 capsule by mouth every morning and take 1 capsule by mouth every evening. Tacrolimus 0.2 MG Pack Discontinued on 10/03/24 for low Tacrolimus level. Patient started on 0.5mg capsules. Assessment and Recommendations Kidney transplant Tacrolimus - no change in dose; goal 4 to 6 ng/dL Mycophenolate - no change No longer taking prophylaxis for pneumocystis jiroveci pneumonia (PJP) Essential Hypertension - controlled Glycemic Control - diet controlled Prescriptions for [...] medical records and lab results. Rebeca Gutierrez PhD, RN, ADVERTISING SALES EXECUTIVE- Certified Nurse Practitioner [facility] documented [facility] encounter [facility] Instructions JEANNA Hess - 08/11/2025 10:30 AM EDT No change in immunosuppression. documented in this encounter [facility] 05-29-2025 History of Present illness Narrative [facility] OP RX OUTREACH ADVANCED: Shipping/Pickup: Patient has affirmed needing a refill of the following medications for Shipment : Med Name: Mycophenolate 360mg Med Name: Tacrolimus 0.5mg Contact Info: Specialty Pharmacy [phone] documented in this encounter [facility] 05-11-2025 History of Present illness Narrative Headaches in the last month or so. 160/101 this morning Has arm cuff BP device Images from the original note were not included. George Styles is a 55 y.o. male presents with chief complaint of Medicare Annual Wellness Visit Initial HPI: Diet:variety Activity:no organized activity, but does yard work Mental Health Concerns:no Falls in the last year:no Still driving: yes Do you pay your bills: yes Any hearing problems: ringing in ear intermittent no pain or fullness Any Vision problems: glasses, last exam 12/24 Any Hospitalizations in the last year: no Specialist: Transplant [facility], Cardiology [facility], Nephrology, Endo HCPOA/Living Will: living will no HCPOA Concerns: WALSH: daily, right side of head, intermittent, achy pain, tylenol resolves it. No stroke type symptoms with it. SUBJECTIVE: MEDICATIONS: Current Outpatient Medications Medication Instructions alendronate (FOSAMAX) 70 mg, Oral, Every 7 days, 1 tablet weekly on an empty stomach, remain upright for at least 30 minutes allopurinol (ZYLOPRIM) 200 mg, Oral, Daily, Take 2 tablets by mouth in the morning. amLODIPine (NORVASC) 10 mg, Every morning aspirin 81 MG chewable tablet 1 tablet, Daily atorvastatin (LIPITOR) 20 mg, Nightly ergocalciferol (VITAMIN D-2) 1.25 mg, Oral, Weekly famotidine (PEPCID) 20 mg, Oral, 2 times daily gabapentin (NEURONTIN) 400 mg, Oral, Nightly melatonin 3 mg, Nightly mycophenolate (Myfortic) 360 MG EC tablet 1 tablet, Every 12 hours ondansetron (Zofran) 4 MG tablet 1 tablet, Every 8 hours PRN polyethylene glycol (PEG) 3350 (GLYCOLAX) 17 g, Daily RT sulfamethoxazole-trimethoprim (Bactrim DS) 800-160 MG [...] visual disturbance. Respiratory: Negative for apnea, chest tightness and wheezing. Cardiovascular: Negative for leg swelling. Gastrointestinal: Negative for abdominal distention, blood in stool, constipation and diarrhea. Genitourinary: Negative for decreased urine volume, difficulty urinating, dysuria and hematuria. Skin: Negative for color change. Neurological: Positive for headaches. Negative for dizziness, tremors and seizures. Psychiatric/Behavioral: Negative for agitation, decreased concentration, hallucinations, self-injury and suicidal ideas. The patient is not nervous/anxious. Hematological: Negative for adenopathy. Does not bruise/bleed easily. Endocrine: Negative for cold intolerance, heat intolerance, polydipsia and polyuria. Allergic/Immunologic: Negative for environmental allergies and food allergies. 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 OBJECTIVE: Visit Vitals BP 136/82 (BP Location: Right arm, Patient Position: Sitting, BP Cuff Size: Large adult) Pulse 74 Temp 98.7 F (Temporal) Resp 20 Wt 204 lb SpO2 96% BMI 31.95 kg/m Smoking Status Former BSA 2.09 m Physical Exam Vitals and nursing note reviewed. Constitutional: Appearance: Normal appearance. He is obese. HENT: Head: Normocephalic. Right Ear: Tympanic membrane, ear canal and external ear normal. Left Ear: Tympanic membrane, ear canal and external ear normal. Nose: Nose normal. No congestion or rhinorrhea. Mouth/Throat: Mouth: Mucous membranes are moist. Pharynx: Oropharynx is clear. Eyes: General: No scleral icterus. Extraocular Movements: Extraocular movements intact. Conjunctiva/sclera: Conjunctivae normal. Neck: Vascular: No carotid bruit. Cardiovascular: Rate and Rhythm: Normal rate and regular rhythm. Pulses: Normal pulses. Heart sounds: Normal heart sounds. Pulmonary: Effort: Pulmonary effort is normal. Breath sounds: Normal breath sounds. No wheezing or rhonchi. Abdominal: General: Bowel sounds are normal. Palpations: Abdomen is soft. Musculoskeletal: Cervical back: Neck supple. Right lower leg: No edema. Left lower leg: No edema. Lymphadenopathy: Cervical: No cervical adenopathy. Skin: General: Skin is warm and dry. Capillary Refill: Capillary refill takes 2 to 3 seconds. Neurological: General: No focal deficit present. Mental Status: He is alert. Cranial Nerves: No cranial nerve deficit. Gait: Gait normal. Psychiatric: Mood and Affect: Mood normal. Behavior: Behavior normal. Thought Content: Thought content normal. Judgment: Judgment normal. ASSESSMENT AND PLAN: No follow-ups on file. Problem List Items Addressed This Visit Gastroesophageal reflux disease Recommendations: freq small meals, nothing to eat or drink at least 2 hours prior to bed, limit caffeine, alcohol, as well as spicy foods Meds to limit or avoid if possible: NSAIDS Elevate HOB if possible Current med: pepcid Relevant Medications famotidine (Pepcid) 20 MG tablet Obesity (BMI 30-39.9) Discussed with patient their BMI (actual, verses recommended). We have also discussed lifestyle modifications: attempts to perform physical activity as chronic conditions allow, also to monitor dietary intake: increasing protein/fruits/veggies and lowering carb intake (unless contraindicated). Limit sodas, juices, and sugary drinks. DARLENE (obstructive sleep apnea) - Primary You have a diagnosis of obstructive sleep [...] sure Doctor that manages your DARLENE: Martha Peripheral neuropathy Current medication is gabapentin OARRS reviewed Relevant Medications gabapentin (Neurontin) 400 MG capsule Hypertension Please check blood pressure daily and record DASH diet Limit caffeine Take medication as directed Contact office if chest pain, pressure, dizziness, shortness of breath, swelling legs Recommend slow position changes Current meds: amlodipine Encounter for subsequent annual wellness visit (AWV) in Medicare patient Reviewed Ht/Wt/BMI Recommend eye exam yearly Recommend dental exams twice a year Balance work/leisure activities Exercises is recommended most days of the week (appropriate as chronic conditions allow) Follow up yearly and prn Other osteoporosis without current pathological fracture 09/22 DEXA scan is -2.5 osteoprosis Did receive contact back from [facility] regarding treatment, after discussion with them, as well as Dr Verdugo, pt was referred to Endo to help with appropriate treatment plan given his hx of : kidney/liver transplant, as well as kidney stones Arteriosclerosis of coronary artery Recently saw [facility] Cardiology Reviewed notes , increased his amlodipine as well as resumed his statin Associated Problem(s): Encounter for subsequent annual wellness visit (AWV) in Medicare patient Reviewed Ht/Wt/BMI Recommend eye exam yearly Recommend dental exams twice a year Balance work/leisure activities Exercises is recommended most days of the week (appropriate as chronic conditions allow) Follow up yearly and prn Associated Problem(s): Obesity (BMI 30-39.9) Discussed with patient their BMI (actual, verses recommended). We have also discussed lifestyle modifications: attempts to perform physical activity as chronic conditions allow, also to monitor dietary intake: increasing protein/fruits/veggies and lowering carb intake (unless contraindicated). Limit sodas, juices, and sugary drinks. Associated Problem(s): Other osteoporosis without current pathological fracture 09/22 DEXA scan is -2.5 osteoprosis Did receive contact back from [facility] regarding treatment, after discussion with them, as well as Dr Verdugo, pt was referred to Endo to help with appropriate treatment plan given his hx of : kidney/liver transplant, as well as kidney stones Associated Problem(s): Gastroesophageal reflux disease Recommendations: freq small meals, nothing to eat or drink at least 2 hours prior to bed, limit caffeine, alcohol, as well as spicy foods Meds to limit or avoid if possible: NSAIDS Elevate HOB if possible Current med: pepcid Associated Problem(s): Hypertension Please check blood pressure daily and record DASH diet Limit caffeine Take medication as directed Contact office if chest pain, pressure, dizziness, shortness of breath, swelling legs Recommend slow position changes Current meds: amlodipine Will order bp cuff Associated Problem(s): Arteriosclerosis of coronary artery Recently saw [facility] Cardiology Reviewed notes , increased his amlodipine as well as resumed his statin Associated Problem(s): Peripheral neuropathy Current medication is gabapentin OARRS reviewed Associated Problem(s): DARLENE (obstructive sleep apnea) You have a diagnosis of obstructive sleep [...] sure Doctor that manages your DARLENE: Martha documented in this encounter [facility] 05-11-2025 Instructions Zuly Bruno NP - 05/11/2025 10:00 AM EDT perform physical activity as chronic conditions allow, also to monitor dietary intake: increasing protein/fruits/veggies and lowering carb intake (unless contraindicated). Limit sodas, juices, and sugary drinks. Check blood pressure once daily notify office consistent readings >150/90 documented in this encounter [facility] 03-23-2025 Note Patient Education Urology Benign Prostatic [...] Follow these instructions at home: ??? Take ywpa-urq-vpcvsma and prescription medicines only as told by [...] do not get (more content not included)... [facility] 03-22-2025 Note [place] Cardiology - [facility] Subjective George Styles is a [...] supple. Skin: G (more content not included)... [facility] 03-21-2025 History of Present illness Narrative George Styles is a 55 y.o. male No ref. provider found presents with chief complaint of Follow-up and Osteoporosis (LAB) HPI: IM : 02/2025 Follow-up visit for 24 hour urine calcium 340 ( 100-300), 24 hour urine creatinine 1600 ( 5692-6266), 24 hour urine sodium 200 ( 40-220) [...] deficiency - ergocalciferol (Vitamin D-2) 1.25 MG (63070 UT) capsule; Take 1 capsule (1.25 mg) by mouth 1 (one) time per week - Vitamin D 25 hydroxy Total; Future We will check lab before next visit and adjust. Liver transplant status He is on Prograf and Myfortic Follow up in about 6 months (around 09/20/2025). documented in this encounter [facility] 02-28-2025 History of Present illness Narrative George Styles is a 55 y.o. male Zuly Bruno, BA presents with chief complaint of Osteoporosis (NEW [...] weeks (around 03/21/2025). documented in this encounter [facility] 02-23-2025 Telephone encounter Note Yesourav. My name is George Styles and my number is [phone] need a refill on my fine. [facility] 02-23-2025 Miscellaneous Notes Yesourav. My name is George Styles and my number is [phone] need a refill on my fine. documented in this encounter [facility] 01-03-2025 Hospital Discharge instructions Patient Education [...] urethra. Follow these instructions at home: Take lhmh-thw-eguhiok and prescription medicines only as told by [...] provider. Document Revised: 06/04/2022 Document Reviewed: 06/04/2022 byUs Patient Education 2023 Life800. Follow Up Care 12/27/2024 09:54:21 With:JONATHAN Almodovar APRN, RUMA La, URL Address: When: Unknown [facility] Alexandre 01-03-2025 Note Patient Education Urology [...] Follow these instructions at home: ??? Take sosa-vtp-bcemyvf and prescription medicines only as told by [...] do not get (more content not included)... [facility] 12-26-2024 Procedure note [facility] 12-15-2024 Evaluation note Authored December 15, [...] twice or three times daily if needed. [facility] Work Phone: [phone] Hospital Discharge instructions Patient Education 11/22/2024 09:57:55 [...] if anything looks unusual. Males with a iilvkn-wzso-atzdmy risk for skin cancer may want to see a strategic partnership specialist (form setter supervisor) for an annual body check. Where to find more information [employer]: cancer.org Centers for Disease Control and Prevention: cdc.gov National Cancer [place]: cancer.gov Contact a health care provider if: [...] provider. Document Revised: 11/24/2023 Document Reviewed: 06/08/2023 byUs Patient Education 2023 Life800. 11/22/2024 09:57:51 Erectile Dysfunction Erectile Dysfunction Erectile [...] Follow these instructions at home: Medicines Take bpos-yzy-fclahct and prescription medicines only as told by [...] provider. Document Revised: 02/12/2022 Document Reviewed: 02/12/2022 byUs Patient Education 2023 Life800. 11/22/2024 09:57:50 Benign Prostatic Hyperplasia Benign Prostatic [...] urethra. Follow these instructions at home: Take gyoo-qea-gaurenz and prescription medicines only as told by [...] provider. Document Revised: 06/04/2022 Document Reviewed: 06/04/2022 ElseIdooble Patient Education 2023 Life800. Follow Up Care 09/08/2024 14:18:18 With:Jaguar CASTILLO, Clementina Mejias, URL Address: When: Unknown Comments:4 mos [facility] 12-24-2024 NotePatient Education Oncology [...] if anything looks unusual. Males with a ebmakz-iuku-itievf risk for skin cancer may want to see a strategic partnership specialist (dermatologi (more content not included)...[facility] History of Present illness Narrative* Zuly Bruno NP - 11/07/2024 2:56 PM ESTAssociated Problem(s): Kidney stones Would caution use of calcium d/t this * Zuly Bruno NP - 11/07/2024 2:54 PM ESTAssociated Problem(s): Other osteoporosis without current pathological fracture ([facility]) DEXA scan is -2.5 osteoprosis Letter sent [...] Ginette, continues w hepatology [id number] Instructions* Patient Instructions* Zuly Bruno NP - 11/07/2024 2:20 PM EST No medication dose changes Recommend cutting back on snacking, goal for 10 pounds weight loss by next visit Exercise as tolerated, most days of the week for approx 30 minutes, treadmill is great option Will reach out again to transplant team about options for osteoporosis documented in this encounter[facility] [id number] History of Present illness Narrative* Gopi Noyola - 10/31/2024 12:18 PM EST [facility] OP RX OUTREACH ADVANCED: Shipping/Pickup: Patient has affirmed needing a refill of the following medications for Shipment (11/01) : Med Name: Mycophenolate 360mg Med Name: Tacrolimus 0.5mg Contact Info: Specialty ([place]anci) [phone] Jakob Hendrix [phone] [facility] [phone] Raheem [phone] Bedside Delivery ([facility]) [phone] [facility] Discharge instructions Patient Education 09/08/2024 14:31:14 [...] urethra. Follow these instructions at home: Take yyyy-tjc-hyyinnw and prescription medicines only as told by [...] provider. Document Revised: 06/04/2022 Document Reviewed: 06/04/2022 byUs Patient Education 2023 Life800. Follow Up Care 08/25/2024 09:38:26 With:Clementina James, URL Address: When:3 months Comments:med increase [facility] 10-10-2024 NoteUrology Office/Clinic Note [...] Skin: No rashes or suspicious lesions Assessment/Plan VOICER referred by Zuly Bruno NP for weak [...] E&M of New Patient Moderate 45-59 Min 53165 2. Screening PSA (prostate specific antigen) (Z12.5: Encounter for screening for malignant neoplasmof prostate) No PSA records on file -Will discuss with patient at his follow up Ordered: E&M of New Patient Moderate 45-59 Min 03879 3. History of kidney transplant (Z94.0: Kidney transplant status) 08/29/24 - BUN 18, Cre 1.3, GFR 58 Pt had liver and kidney transplant in [address] [facility]. Ordered: E&M of New Patient Moderate 45-59 Min 65664 Orders: tamsulosin, 0.4 mg = 1 cap(s), Oral, BID, X 30 day(s), # 60 cap(s), Refills(s) 11, Pharmacy: [id number], 170, cm, 09/08/24 14:00:00 EDT, Height/Length Dosing, 90, kg, 09/08/24 14:00:00 EDT, Weight Dosing 87346 Measure Post Void residual urine and/or bladder capacity by US- non-imaging Urnls Dip Stick Auto w/o Microscopy POC 30727 Follow-up With When Contact Information Jaguar CASTILLO, Clementina Mejias, CHRISTAL Within 3 months Additional Instructions: med increase [...] Glucose Urine Dipstick: Negative (more content not included)...[facility] Hospital[facility]:Result Comment: Electronically Signed By: Clementina James.br\Date and Time Signed: 09/08/24 14:33 [id number] Note Patient Education Urology Benign Prostatic Hyperplasia [...] Follow these instructions at home: ? Take osyr-jgq-xibpjsw and prescription medicines only as told by [...] You develop side effec (more content not included)...[facility] History of Present illness Narrative* Starla [...] No Receive/Pickup Date: 09/06/2024 Shipping Address: [address] [place] [address] [address] Contact Info: Specialty ([place]) [phone] Jakob [phone] [facility] [phone] Raheem [phone] Bedside Delivery ([facility]) [phone] [facility] History of Present illness Narrative* Zuly [...] 02/11/2024 Right nephrolithiasis 02/11/2024 S/P liver transplant ([facility]) Takes dietary supplements Tremor 11/03/2023 Umbilical [...] Follows yearly with Hepatology documented in this [facility]09-24-20[facility] Instructions* Patient Instructions* Zuly Bruno NP - 08/23/2024 8:40 AM EDT Labs, referrals to : GI, Urology Tests: bone density test documented in this [facility]07-25-2024 History of Present illness Narrative* Starla [...] Required: No Receive/Pickup Date: 06/29/2024 Shipping Address: [address] [place] [address] [address] Contact Info: Specialty ([place]) [phone] Jakob [phone] [facility] [phone] Raheem [phone] Bedside Delivery ([facility]) [phone] [facility] History of Present illness Narrative* Daisha Max [...] Surgeon: Jyoti Bryant MD, PhD; Location: [facility] MAIN OR PLACEMENT NEPHROSTOMY CATHETER PERCUTANEOUS W/ IMAGE GUIDANCE 05/17/2022 Surgeon: Enzo Heart DO; Location: [facility] INTERVENTIONAL RADIOLOGY (VIR) LIVER TRANSPLANT, ORTHOTOPIC N/A 04/12/2020 Laterality: N/A; Surgeon: LU Palma; Location: [facility] SAME DAY SURGERY MAIN OR KIDNEY TRANSPLANT W/O YSLETA DEL SUR NEPHRECTOMY N/A 04/12/2020 Laterality: N/A; Surgeon: LU Palma; Location: [facility] SAME DAY SURGERY MAIN OR [...] 0.2 06/13/2024 Explant Pathology Pathologic Diagnosis A. [place] liver, orthotopic liver transplant resection (1458 gram): [...] up in 1 year. Daisha Max DO Housekeeping Room Inspector Gastroenterology, Hepatology and Nutrition [facility] Pager: [phone] * José Miguel Garnica RN - 06/17/2024 10:00 AM EDT Images from the original note were not included. 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 [employer]: Anayeli Burt Date of Liver Transplant: 04/13/2020 (Kidney), 04/13/2020 (Liver) 4 years, 2 months post Liver/KidneyTransplant Primary Disease: Hypertensive Nephrosclerosis Transplant Sticker On: Erma Roe/ Daisha Max Primary Care physician: [...] LAB AND PHARMACY: None Specified [id number] [place] [address] - [address] [facility] [address] [facility] [id number] [facility] [address] [facility] [address] [id number] [place] [address] [address] [facility] [address] [facility] [address] [facility] Jakob [address], [address] [facility] [address] ROS and SCREEN: Chest Pain: negative Cough: [...] year: no Do you follow with a Special Education Aide? yes Do you have a Primary Care [...] TO ADDRESS WITH PHYSICIAN: documented in this [facility]07-19[facility] Instructions* Patient Instructions* Ashlee Fair RN - 06/17/2024 10:00 AM EDT - No medication changes from a liver standpoint - A MRI Abdomen has been ordered today. Please call central scheduling at [phone] to schedule or take paper copy to your local hospital - Return to clinic 06/16/2025 TRANSPLANT HEPATOLOGY 3, [facility] as scheduled documented in this [facility]07-19-2024 History of Present illness Narrative* Rebeca Gutierrez APRN-ROB - 06/17/2024 9:30 AM EDT Images from the original note were not included. George Styles is a 54 y.o. 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 The HLA mismatch was 1A,2B, 1DR. No longer follows with a local photogrammetry airplane pilot. History of Present Illness: Since George was [...] and lab results. Rebeca Gutierrez MSN, RN, ADVERTISING SALES EXECUTIVE-BC, CCTN Certified Nurse Practitioner [facility] [address] [facility] [address] documented in this encounterOS[facility] Instructions* Patient Instructions* JEANNA Hess - 06/17/2024 9:30 AM EDT Tacrolimus - increase to 0.2 mg packet three time per day; goal 3 to 5 ng/dL ; when the itraconazole stops 09/03/2024, reduce to 0.5 mg twice daily. Once your tacrolimus level is 3-5 ng/dL, you may reduce labs to every other week. documented in this encounterOSU [facility]06-27-2024 History of Present illness Narrative* Destiny Jensen - 05/26/2024 4:33 PM EDT [facility] RX OUTREACH ADVANCED: Call Information: Date and Time of Contact: 05/26/2024 4:35 PM Method of Contact: By Phone Contact Type: Prescriptions Contactor: [facility] OP Contactee: Patient Contact Outcome: Left message and Follow-up Contact Info: Specialty (Yanci) [phone] Jakob [phone] [facility] [phone] Raheem [phone] Bedside Delivery ([facility]) [phone] * Melody Reyez - 05/26/2024 4:33 PM EDT [facility] RX OUTREACH ADVANCED: Call Information: Date and Time of Contact: 05/30/2024 4:52 PM Method of Contact: By Phone Contact Type: Prescriptions Contactor: Patient Contactee: [facility] OP Shipping/Pickup: Medicare B Refill?: No Medication Name: Myco sod 360mg, Prograf 0.2mg Delivery Method: Ship Delivery Location: Home Signature Required: No Receive/Pickup Date: 06/06/2024 Shipping Address: [address] [place] [address] Contact Info: Specialty (Yanci) [phone] Jakob [phone] [facility] [phone] Raheem [phone] Bedside Delivery ([facility]) [phone] documented in this encounterOSU [facility] Health System06-14-2024 NoteUT Cardiology [facility] Subjective George Styles is a 54 y.o. [...] Disp: , Rfl: t (more content not included)...[facility]04-25-2024 History of Present illness Narrative* Melody Reyez - 03/24/2024 4:12 PM EDT [facility] RX OUTREACH ADVANCED: Call Information: Date and Time of Contact: 03/24/2024 4:14 PM Method of Contact: By Phone Contact Type: Prescriptions Contactor: [facility] OP Contactee: Patient Contact Outcome: Left message Shipping/Pickup: Medication Name: Prograf 0.2mg pack Contact Info: Specialty (Quentin) [phone] [facility] [phone] [facility] [phone] Raheem [phone] Bedside Delivery ([facility]) [phone] * tSarla Edwards - 03/24/2024 4:12 PM EDT [facility] RX OUTREACH ADVANCED: Call Information: Date and Time of Contact: 03/28/2024 3:58 PM Method of Contact: By Phone Contact Type: Prescriptions Contactor: [facility] OP Contactee: Patient Contact Outcome: Left message and Call back later Shipping/Pickup: Medication Name: Mycophenolate, prograf Contact Info: Specialty (Quentin) [phone] [facility] [phone] [facility] [phone] Raheem [phone] Bedside Delivery ([facility]) [phone] * Gabbi Rajput - 03/24/2024 4:12 PM EDT [facility] RX OUTREACH ADVANCED: Call Information: Method of Contact: By Phone Contact Type: Prescriptions Contactor: Patient Contactee: [facility] OP Shipping/Pickup: Medicare B Refill?: No Medication Name: Mycopheolate 360mg and Prograf Delivery Method: Ship Delivery Location: Home Signature Required: No Receive/Pickup Date: 04/04/2024 Shipping Address: [address] [place] [address] [address] Contact Info: Specialty (Quentin) [phone] [facility] [phone] [facility] [phone] Raheem [phone] Bedside Delivery ([facility]) [phone] documented in this encounterWVUMedicine [facility]04-25-2024 History of Present illness Narrative* Melody Reyez - 03/24/2024 4:12 PM EDT [facility] RX OUTREACH ADVANCED: Call Information: Date and Time of Contact: 03/24/2024 4:14 PM Method of Contact: By Phone Contact Type: Prescriptions Contactor: [facility] Contactee: Patient Contact Outcome: Left message Shipping/Pickup: Medication Name: Prograf 0.2mg pack Contact Info: Specialty (Quentin) [phone] [facility] [phone] [facility] [phone] Raheem [phone] Bedside Delivery ([facility]) [phone] * Starla Edwards - 03/24/2024 4:12 PM EDT [facility] RX OUTREACH ADVANCED: Call Information: Date and Time of Contact: 03/28/2024 3:58 PM Method of Contact: By Phone Contact Type: Prescriptions Contactor: [facility] Contactee: Patient Contact Outcome: Left message and Call back later Shipping/Pickup: Medication Name: Mycophenolate, prograf Contact Info: Specialty (Quentin) [phone] [facility] [phone] [facility] [phone] Raheem [phone] Bedside Delivery ([facility]) [phone] * Gabbi Rajput - 03/24/2024 4:12 PM EDT [facility] RX OUTREACH ADVANCED: Call Information: Method of Contact: By Phone Contact Type: Prescriptions Contactor: Patient Contactee: [facility] OP Shipping/Pickup: Medicare B Refill?: No Medication Name: Mycopheolate 360mg and Prograf Delivery Method: Ship Delivery Location: Home Signature Required: No Receive/Pickup Date: 04/04/2024 Shipping Address: [address] [place] [address] [address] Contact Info: Specialty (Quentin) [phone] [facility] [phone] [facility] [phone] [facility] [phone] Bedside Delivery ([facility]) [phone] * Meka Munoz [facility] - 03/24/2024 4:12 PM EDT [...] Within normal limits Contact Info: Specialty (Yanci) [phone] [facility] [phone] [facility] [phone] Raheem [phone] Bedside Delivery ([facility]) [phone] documented in this encounterWVUMedicine [facility]04-03-2024 History of Present illness Narrative* Mckenna [...] del of broth Contact Info: Specialty (Yanci) [phone] Jakob [phone] [facility] [phone] Raheem [phone] Bedside Delivery ([facility]) [phone] * Andressa Gutiérrez - 03/02/2024 8:14 AM EDT [facility] RX OUTREACH ADVANCED: Call Information: Date and Time of Contact: 03/02/2024 3:49 PM Method of Contact: By Phone Contact Type: Prescriptions Contactor: [facility] OP Contactee: Patient Contact Outcome: Left message and Follow-up Shipping/Pickup: Medication Name: Myco 360mg and Prograf 0.2mg Contact Info: Specialty (Yanci) [phone] [facility] [phone] [facility] [phone] Raheem [phone] Bedside Delivery ([facility]) [phone] * Mckenna Stuart - 03/02/2024 8:14 AM EDT [facility] RX OUTREACH ADVANCED: Call Information: Date and Time of Contact: 03/02/2024 4:08 PM Method of Contact: By Phone Contact Type: Prescriptions Contactor: [facility] OP Contactee: Patient Shipping/Pickup: Medicare B Refill?: No Medication Name: Myco 360 / prograf 0.2 Delivery Method: Ship Delivery Location: Home Signature Required: No Receive/Pickup Date: 03/03/2024 Shipping Address: [address] [place] [address] [address] Contact Info: Specialty (Quentin) [phone] [facility] [phone] [facility] [phone] Raheem [phone] Bedside Delivery ([facility]) [phone] documented in this encounterWVUMedicine [facility]03-29-2024 History of Present illness Narrative* Marsha [...] the [facility] on 02/26/2024 for initial evaluation of [...] Surgeon: Jyoti Bryant MD, PhD; Location: [facility] MAIN OR PLACEMENT NEPHROSTOMY CATHETER PERCUTANEOUS W/ IMAGE GUIDANCE 05/17/2022 Surgeon: Enzo Heart DO; Location: [facility] INTERVENTIONAL RADIOLOGY (VIR) LIVER TRANSPLANT, ORTHOTOPIC N/A 04/12/2020 Laterality: N/A; Surgeon: LU Palma; Location: [facility] SAME DAY SURGERY MAIN OR KIDNEY TRANSPLANT W/O YSLETA DEL SUR NEPHRECTOMY N/A 04/12/2020 Laterality: N/A; Surgeon: LU Palma; Location: [facility] SAME DAY SURGERY MAIN OR [...] qd Antithrombotic: no Statin: no ICD: NA MANAGER UTILIZATION REVIEW: NA CV Test results: ECHOCARDIOGRAM 01/18/2024 (Final) [...] will be BP control. Candie Almaguer M.D. claims technician Advanced Heart Failure Program Division of Cardiovascular Medicine [facility] [email or web address] ph [phone] fax [phone] documented in this encounterOSU [facility] Health System03-29-2024 Instructions* Patient Instructions* Marsha Mckeon RN - 02/26/2024 9:30 AM EDT The following instructions were given today: Labs today Follow up with Dr. Almaguer as needed. Your after visit summary (AVS) is viewable in [facility]. Call RN if you have cardiac questions/concerns M-F 8 to 4:30 ; office # [phone], option 6, then option 2. Guidelines for home management: 1. Continue to monitor weight first thing each morning. 2. Report to the CHF CLINIC ([phone]) any significant weight change. Remember that weight [...] to have labs/tests run outside of [facility] and you do not hear from us1-2 days after they are performed, you must call us to ensure we received the results. Office fax #[phone]. No news does not necessarily mean that your tests are normal, it could mean we did not get the results. For questions/updates: please provide your name with spelling, date of and question or update All calls are prioritized and responses researched, if possible, prior to calls being returned. Call Scheduling for any appointment/procedure verification or changes [phone], option 7 or [facility] at [phone], option 1. documented in this encounterWVUMedicine [facility]02-24-2024 Nurse Note* Nursing Notes - Terra [...] [facility] on [facility] summary. Patient denies any unanswered questions at this time. Patient has been discharged with all of their belongings, transported via wheelchair on oxygen to front entrance for brother to transport home on home oxygen supply. [facility]02-24-[facility]24 Miscellaneous Notes* Nursing Notes - Terra [...] understanding on picking up needed prescriptions at [facility] pharmacy as listed on discharge summary. [...] - 01/22/2024 1:34 PM EST George Styles ([id number]) PRE OPERATIVE DIAGNOSIS High output congestive heart failure [I50.83] POST OPERATIVE DIAGNOSIS Post-Op Diagnosis Codes: * High output congestive heart failure [I50.83] PROCEDURE PERFORMED Procedure(s) (LRB): LIGATION ANGIOACCESS AVF (Left) Resection of large aneurysmic vein PRIMARY CLOSURE Yes INTRAOPERATIVE FINDINGS No significant abnormalities SURGEON Surgeons and Role: * Jyoti Bryant MD, PhD - Primary ANESTHESIOLOGIST Anesthesiologist: Celena Tiwari MD; Kehinde Gutierrez MD CAR SHIFTER: Raheem Jasso APRN-CAR SHIFTER Craft Center Director Assisting: Mini Khan MD SURGICAL STAFF Paper Sheeter: Zoila Lawrence RN Relief Paper Sheeter: Marimar Saravia RN Relief Scrub: Briseyda Self [...] Axillary block. SURGEON(S): Jyoti Bryant MD, PHD COMPUTER SALESPERSON RETAIL: Mynor Fall MD ESTIMATED BLOOD LOSS: Minimal. [...] Jyoti Bryant MD, PHD ATTENDING SHANNON/Constanza JOB: [id number] DOC: [id number] * Plan of Care - Tati Ahmadi [...] overnight coverage, Jasper Gastelum MD, via pager #[phone] Pt- George Styles. Sarah 1082. TM1. Was wondering if he can have his Melatonin order increased to 6mg. Per pt, he usually takes 8mg at home. -SAMI Duffy #[phone] Tati Charles RN * Plan of Care - Arelis Mera MD - 01/16/2024 7:27 AM EST Internal Medicine Daily Progress Note Patient: George Styles, 1970, [id number] Physician: Arelis Mera MD, PGY3, Pager #[phone], TM1 service Assessment/Plan: George Styles is a [...] 5mg CAD: non-obstructive CAD on [facility] 2018. - continue home aspirin 81mg daily, [...] AM EST Mr. Styles was admitted to [address] [place] [address]. On admission to [facility], from outside facility a dual RN initial assessment of skin condition was performed by Izzy Gutierrez RN and Leroy Singleton RN. Skin Assessment: Skin within defined limits:Yes Jose Score: 20 Wound Vision Manager Cancer images obtained: No LDA Added: No Based [...] nurses station when available. documented in this encounterOS[facility]-24-[facility] Nurse Note* Nursing Notes - [...] at 4L of oxygen is also required.) [facility]02-24-[facility] History of Present illness Narrative* Leonel [...] PGY-3 Surgery Resident * Kelvin Smith MD, LU - 01/22/2024 3:51 PM EST Patient seen [...] mg Oral Daily Kelvin Smith MD, MBBS accountancy professor Transplant nephrology * Leonel Harris DO [...] monitor Leonel Harris DO General Surgery Pager [phone] * Girish Salvador RN - 01/22/2024 3:14 PM EST CM went to bedside to talk with patient. Patient states he has home oxygen through [employer]. He uses 2.5 LNC around the clock. Patient states his brother will bring a tank for discharge. Anticipate patient will discharge tomorrow AM. Brother updated. Girish Oro RN, BSN Clinical Senior Government Program Analyst Please note that I am a float counter caser and may not cover the same service every day. Please call the main Case Management office at [phone] for up-to-date coverage. Verified patients identity using [...] Daily Progress Note Patient: George Styles, 1970, [id number] Physician: Yury Ozuna MD, PGY1, Pager #[phone], TM1 service Assessment/Plan: George Styles is a [...] by transplant surgery on 01/22 ([place] at [place], updated type & screen) S/p Liver-Kidney Transplant [...] 5mg CAD: non-obstructive CAD on [facility] 2018. - continue home aspirin 81mg daily, [...] agreed with the Nutrition plan outlinedin the Volleyball Commentator s note. DVT prophylaxis with lovenox Diet [...] in resident note. Kelvin Smith MD, MBBS accountancy professor Transplant nephrology * Kelvin Smith MD, [...] Oral BID AC Kelvin Smith MD, MBBS accountancy professor Transplant nephrology * Yury Ozuna MD - 01/20/2024 9:31 AM EST Images from the original note were not included. Internal Medicine Daily Progress Note Patient: George Styles, 1970, [id number] Physician: Yury Ozuna MD, PGY1, Pager #[phone], MB5 service Assessment/Plan: George Styles is a 53 [...] 5mg CAD: non-obstructive CAD on [facility] 2018. - continue home aspirin 81mg daily, [...] agreed with the Nutrition plan outlinedin the Volleyball Commentator s note. DVT prophylaxis with lovenox Diet DIET HEART HEALTHY - 4 GM SODIUM Disposition: home pending clinical improvement and evaluation Code status is Full Code Discussed with team and attending, Kelvni Smith MD, MBBS , on rounds. Signed, [...] four extremities Data Review: WBC/Hgb/Hct/Plts: 3.79/12.5/38.9/166 (01/20 06) Na/K+/Phos/Mg/Ca: 141/3.8/--/1.6/-- (01/20 611) Bun/Creat/Cl/CO2/Glucose: 15/1.12/105/28/88 (01/20 611) Ptt/Pt/Inr: 30.6/15.5/1.2 (01/20 611) Doppler US HOLLOWAY AVF: Associated attestation - Kelvin Smith MD, [...] Provider: Zuly Bruno NP [facility]: [facility] Other Comments: Patient reported his Last Home Dose of mycophenolate and tacrolimus was on 01/15/24 at 0700. Medications that need removed from Outside Medication Reconciliation list: Please remove all medications. Please feel free to contact me with any further questions. Name: Heidy Chatman Phone #: [phone] Date/Time: 01/19/2024 12:08 PM Time Spent: 15 minutes Associated attestation - Melania Alarcon RP - 01/19/2024 12:41 PM EST Department of Pharmacy Admission Medication Reconciliation Note Patient: George Styles Room/Bed: 1082/A I have reviewed the home medication list with the Tool And Die Supervisor. The home medication list status is: complete. All changes to the home medication list have been updated in [facility]. Updated CABLE MAKER Med List: Prior to Admission Medications Prescriptions [...] with any further questions. Name: Melania Ortiz Dorian [facility] Phone #: [phone] Date/Time: 01/19/2024 12:41 PM * Yury Ozuna MD - 01/19/2024 11:10 AM EST Internal Medicine Daily Progress Note Patient: George Styles, 1970, [id number] Physician: Yury Ozuna MD, PGY1, Pager #[phone], EB7 service Assessment/Plan: Acute Hypoxic Respiratory Insufficiency GARCIA, [...] 5mg CAD: non-obstructive CAD on [facility] 2018. - continue home aspirin 81mg daily, [...] agreed with the Nutrition plan outlinedin the Volleyball Commentator s note. DVT prophylaxis with lovenox Diet [...] mg Oral Daily Kelvin Smith MD, MBBS accountancy professor Transplant nephrology * Yury Ozuna MD - 01/18/2024 2:53 PM EST Internal Medicine Daily Progress Note Patient: George Styles, 1970, [id number] Physician: Yury Ozuna MD, PGY1, Pager #[phone], TM service Assessment/Plan: Updates: - continued diuresis with [...] 5mg CAD: non-obstructive CAD on [facility] 2018. - continue home aspirin 81mg daily, [...] agreed with the Nutrition plan outlinedin the Volleyball Commentator s note. DVT prophylaxis with lovenox Diet [...] in resident note. Kelvin Smith MD, LU accountancy professor Transplant nephrology * BENJY Syed - 01/18/2024 1:42 PM EST Pt known to media theorist and author of from previous admissions. Provided emotional and spiritual support. Patient shared about: family support, medical course Cook Candy provided: - Supportive presence - Active listening - Validation of feelings/emotions Patient encouraged to request a media theorist and author of as needed. Chaplains are available in-house 24 hours a day and 7 days a week. For urgent matters in [facility], please page [phone]. If the request is not urgent, please enter a consult. Consults are responded to within 24 hours. Senior Staff Cook Candy Angie Singh Mdiv, [facility] Kirk [phone] [email or web address] On-call TYLOR: call center supervisor Raheem: 22/06 Pager TYLOR,KIKE, and Brock Hernandez Pager [phone] 01/18/24 1342 Clinical Encounter Type Visited With Patient Visit Type Introduction Pastoral Time Spent 15 min Referral Other (See Comment) (rounding) Spiritual Assessment Emotional Observation Coping well;Anxiety Hope Observation Specific hope focus Support Observation By Family Interventions Provided Active listening;Supportive presence Facilitated Verbalization of feelings;Identifying support system;Identifying Sources of spiritual well-being Explored Expectations;Treatment decisions Molder Hand Education Molder Hand Service Available Yes Educated Patient Outcomes Patient [...] any potential drug interaction. Name: Melania Alarcon [facility] Phone #: [phone] Date/Time: 01/18/2024 9:56 AM * Kasandra Hurt [...] Yes Name and Contact information: Gian Styles ([phone]) Would you like to add additional adult [...] oxygen?: Yes Oxygen Provider and Contact : [employer] Liter-Flow?: 20/01- Order for oxygen use?: unknown [...] patient on Anticoagulation? : No [facility] [id number] - [place] [address] - [address] [facility] [address] [facility] [address] Registered Nurse Cardiovascular Icu Does the patient or internet sales representative express financial concerns? : No [...] Plan 1. Identified self and role as Senior Government Program Analyst. 2. Confirmed and updated demographics and treatment team. 3. Senior Government Program Analyst will continue to follow with medical team for any other additional discharge needs. Kasandra DON RN [facility] [phone] *Please note I am float CM and work Thursday and Thursday every other week. Please call [phone] for assist in my absence. * Yury Ozuna MD - 01/17/2024 1:57 PM EST Internal Medicine Daily Progress Note Patient: George Styles, 1970, [id number] Physician: Yury Ozuna MD, PGY1, Pager #[phone], CQ3 service Assessment/Plan: Updates: - continue diuresis with [...] 5mg CAD: non-obstructive CAD on [facility] 2018. - continue home aspirin 81mg daily, [...] Finally, ordered 2D echo. Reese Sage MD, SERA Housekeeping Room Inspector of Clinical Medicine [facility] of Medicine Comprehensive Transplant Center documented in this encounterU [facility]02-[facility]-2024 Plan of care note* Plan of Care [...] Guideline (CPG) Outcome: Progressing Flowsheets (Taken 01/23/2024 0655) Related Risk Factors (Acute Pain): surgery Signs and Symptoms (Acute Pain): verbalization of pain descriptors [facility] Discharge instructions* Discharge Instructions* Arelis Mera [...] your doctor for further instructions. Please call [phone], Option 1 or [phone] to schedule your appointment with the Heart Failure Clinic. * Discharge Instr - Wound Care* Arelis Mera MD - 01/22/2024 3:08 PM EST You can change your dressing 48 hours from the procedure * Attachments The following attachments cannot be sent through Care Everywhere. * Heart Failure: Avoiding Triggers ([place]) * Heart Failure: Limiting Sodium ([place]) * Pain and Pain Control ([facility]) ([place]) documented in this encounterOSU [facility]02-23-2024 Surgery Postoperative evaluation and management note* Brief Op Note - Jyoti Bryant MD, PhD - 01/22/2024 1:34 PM EST George Styles ([id number]) PRE OPERATIVE DIAGNOSIS High output congestive heart failure [I50.83] POST OPERATIVE DIAGNOSIS Post-Op Diagnosis Codes: * High output congestive heart failure [I50.83] PROCEDURE PERFORMED Procedure(s) (LRB): LIGATION ANGIOACCESS AVF (Left) Resection of large aneurysmic vein PRIMARY CLOSURE Yes INTRAOPERATIVE FINDINGS No significant abnormalities SURGEON Surgeons and Role: * Jyoti Bryant MD, PhD - Primary ANESTHESIOLOGIST Anesthesiologist: Celena Tiwari MD; Kehinde Gutierrez MD CAR SHIFTER: Raheem Jasso APRN-CAR SHIFTER Craft Center Director Assisting: Mini Khan MD SURGICAL STAFF Paper Sheeter: Zoila Lawrence RN Relief Paper Sheeter: Marimar Saravia RN Relief Scrub: Briseyda Self Scrub Person: Cinda aMi RN Resident Assisting: Leonel Harris DO Fellow: Miki Mcgowan MD, MBBS COMPLICATIONS None ESTIMATED BLOOD LOSS Minimal SPECIMENS No specimen sent * No specimens in log * Jyoti Bryant MD, PhD January 22, 2024 1:34 PM [facility] Work Phone: 1(719) 457-818502-23-2024 Nurse Note* Nursing Notes - Justin Almendarez [...] nocturnally. A&Ox4. Nerve block left arm, elevated. [facility]02-23-2024 Surgery Postoperative evaluation and management note* [...] Axillary block. SURGEON(S): Jyoti Bryant MD, PHD COMPUTER SALESPERSON RETAIL: Mynor Fall MD ESTIMATED BLOOD LOSS: Minimal. [...] Jyoti Bryant MD, PHD ATTENDING AR/MedQ JOB: [id number] DOC: [id number] [facility]02-23-2024 Plan of care note* Plan of Care [...] Of Care Reviewed With: patient [facility]-21-2024 Consult note* Starla Morris MD - 01/20/2024 2:15 PM ESTAssociated Order(s): IP CONSULT TO SURGERY - TRANSPLANT (RENAL) Images from the original note were not included. TRANSPLANT SURGERY CONSULT NOTE: Consult: 01/20/2024, 4:03 PM Utilization Reviewer: Starla Morris MD Reason for Consult: Requesting Dr Carson Bryant for AVF revision/closure given new onset high output heart failure George Styles is a 53 y.o. male CURRENT HOSPITALIZATION LOS: Admit Date: 01/16/2024 [facility] LOS: 4 days George Styles is [...] DAY SURGERY MAIN OR KIDNEY TRANSPLANT W/O YSLETA DEL SUR NEPHRECTOMY N/A 04/12/2020 Laterality: N/A; Surgeon: LU [...] the fellow/resident and agree with the note. [facility] Work Phone: 1(797) 755-790702-21-2024 Consult note* Starla Morris MD - 01/20/2024 2:15 PM ESTAssociated Order(s): IP CONSULT TO SURGERY - TRANSPLANT (RENAL) Images from the original note were not included. TRANSPLANT SURGERY CONSULT NOTE: Consult: 01/20/2024, 4:03 PM Utilization Reviewer: Starla Morris MD Reason for Consult: Requesting Dr Carson Bryant for AVF revision/closure given new onset high output heart failure George Styles is a 53 y.o. male CURRENT HOSPITALIZATION LOS: Admit Date: 01/16/2024 [facility] LOS: 4 days George Styles is [...] Surgeon: Enzo Heart DO; Location: [facility] INTERVENTIONAL RADIOLOGY (VIR) LIVER TRANSPLANT, ORTHOTOPIC N/A 04/12/2020 Laterality: N/A; Surgeon: LU Palma; Location: [facility] SAME DAY SURGERY MAIN OR KIDNEY TRANSPLANT W/O YSLETA DEL SUR NEPHRECTOMY N/A 04/12/2020 Laterality: N/A; Surgeon: LU [...] 30 mL 30 mL Oral Q6H PRN Timohty Joseph MD [Held by provider] amLODIPine (NORVASC) [...] bid Timothy Joseph MD 360 mg at 02/21/24 0918 Ondansetron 4mg/2ml (ZOFRAN) injection 4 mg [...] PM ESTAssociated Order(s): IP CONSULT TO HEPATOBILIARY [facility] [...] N/A; Surgeon: LU Palma; Location: [facility] SAME DAY SURGERY MAIN OR KIDNEY TRANSPLANT W/O YSLETA DEL SUR NEPHRECTOMY N/A 04/12/2020 Laterality: N/A; Surgeon: LU Palma; Location: [facility] SAME DAY SURGERY MAIN OR [...] (order for outpatient) Please SecureChat or Call ([phone]) for any questions. Await attending attestation for final recommendations. Hank Noel MD Division of Gastroenterology, Hepatology, and Nutrition Clinical Fellow, PGY-5 Pager: [phone] For urgent/stat calls or consults 5pm to 7am, please page the on-call GI fellow on QGenda. [facility]--> Internal Medicine--> Gastroenterology, Hepatology, & Nutrition--> 1st Call Fel Alysia For urgent/stat calls or consults 7am to 5pm during the weekend, please page the on-call GI fellow on QGenda. [facility]--> Internal Medicine--> Gastroenterology, Hepatology, & Nutrition--> All Hep & East Wknd Cons Fel Day For follow up questions regarding this patient 7am to 5pm during the weekday, contact the Hepatology consults fellow or CARLOS A on QGenda. [facility]--> Internal Medicine--> Gastroenterology, Hepatology, & Nutrition--> [...] Michael Estrada MD, MSc documented in this encounterWVUMedicine [facility]02-20-2024 Nurse Note* Nursing Notes - Paulette [...] when talking/moving. Paulette Cordon RN [facility]02-20-2024 Nurse Note* Nursing Notes - Tati Charles RN - 01/19/2024 12:10 AM EST Paged overnight coverage, Jasper Gastelum MD, via pager #[phone] Pt- JensenGeorge. Sarah 1082. TM1. Was wondering if he can have his Melatonin order increased to 6mg. Per pt, he usually takes 8mg at home. -SAMI Duffy #[phone] Tati Charles RN [facility]02-19-2024 Consult note* Hank Noel MD - 01/18/2024 1:24 PM ESTAssociated Order(s): IP CONSULT TO HEPATOBILIARY [facility] Main Hepatology Consult WebExchange --> IM Consult Serv [facility] --> [facility] Main Hepatology consult service Fellow [...] GUIDANCE 05/17/2022 Surgeon: Enzo Heart DO; Location: [facility] INTERVENTIONAL RADIOLOGY (VIR) LIVER TRANSPLANT, ORTHOTOPIC N/A 04/12/2020 Laterality: N/A; Surgeon: LU Palma; Location: [facility] SAME DAY SURGERY MAIN OR KIDNEY TRANSPLANT W/O YSLETA DEL SUR NEPHRECTOMY N/A 04/12/2020 Laterality: N/A; Surgeon: LU Palma; Location: [facility] SAME DAY SURGERY MAIN OR [...] (order for outpatient) Please SecureChat or Call ([phone]) for any questions. Await attending attestation for final recommendations. Hank Noel MD Division of Gastroenterology, Hepatology, and Nutrition Clinical Fellow, PGY-5 Pager: [phone] For urgent/stat calls or consults 5pm to 7am, please page the on-call GI fellow on QGenda. [facility]--> Internal Medicine--> Gastroenterology, Hepatology, & Nutrition--> 1st Call Fel Alysia For urgent/stat calls or consults 7am to 5pm during the weekend, please page the on-call GI fellow on QGenda. [facility]--> Internal Medicine--> Gastroenterology, Hepatology, & Nutrition--> All Hep & East Wknd Cons For follow up questions regarding this patient 7am to 5pm during the weekday, contact the Hepatology consults fellow or CARLOS A on QGenda. [facility]--> Internal Medicine--> Gastroenterology, Hepatology, & Nutrition--> All Hep Consult OR Transplant Hep Consults CARLOS A Associated [...] (order for outpatient) Michael Estrada MD, MSc [facility] Work Phone: 1(994) 911-656202-17-2024 Plan of care note* Plan of Care - Arelis Mera MD - 01/16/2024 7:27 AM EST Internal Medicine Daily Progress Note Patient: George Styles, 1970, [id number] Physician: Arelis Mera MD, PGY3, Pager #[phone], TM1 service Assessment/Plan: George Styles is a [...] 5mg CAD: non-obstructive CAD on [facility] 2018. - continue home aspirin 81mg daily, [...] MD, on rounds. Signed, Arelis Mera MD [facility]02-17-2024 Nurse Note* Nursing Notes - Izzy Gutierrez RN - 01/16/2024 1:41 AM EST Mr. Styles was admitted to [address] [place] [address]. On admission to [facility], from outside facility a dual RN initial assessment of skin condition was performed by Izzy Gutierrez RN and Leroy Singleton RN. Skin Assessment: Skin within defined limits:Yes Jose Score: 20 Wound Vision Manager Cancer images obtained: No LDA Added: No Based [...] room closest to nurses station when available. [facility]02-17-2024 History and physical note* Timothy Joseph MD - 01/16/2024 1:13 AM EST Images from the original note were not included. Internal Medicine Admission History & Physical Patient: George Styles, 1970, [id number] Physician: Timothy Joseph MD, PGY1, Pager #[phone], TM 1 service Date of face to [...] Surgeon: Enzo Heart DO; Location: [facility] INTERVENTIONAL RADIOLOGY (VIR) LIVER TRANSPLANT, ORTHOTOPIC N/A 04/12/2020 Laterality: N/A; Surgeon: LU Palma; Location: [facility] SAME DAY SURGERY MAIN OR KIDNEY TRANSPLANT W/O YSLETA DEL SUR NEPHRECTOMY N/A 04/12/2020 Laterality: N/A; Surgeon: LU Palma; Location: [facility] SAME DAY SURGERY MAIN OR [...] itraconazole Fax results to: Dr. White - [phone] Transplant Neph - [phone] Gabapentin 400 MG capsule Sig: Take 1 [...] erythema: Skin: No jaundice or rash Neuro: curtain fitter 3-7, 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 Strength grossly [...] 5mg CAD: non-obstructive CAD on [facility] 2018. - continue home aspirin 81mg daily Gout: continue home allopurinol 200mg daily BPH: continue home flomax 0.4mg daily Complexity. Obesity Body mass index is 32.8 kg/m . - Follow with PCP for dietary and lifestyle modifications. Any conditions listed below are present on admission unless otherwise specified. . DVT prophylaxis with lovenox Disposition: admitted to [facility] Code status is Full Staffed with [...] Pierson, Luisa Steven, Renee Freed, Daisha Max Appraiser Oil And Water: José Miguel Garnica All Txt: 04/13/2020 (Kidney), [...] results found for: CYCLOSPORIN , CYCLOSPORIN2 , [id number] , CYCLORAND No results found for: SIROLIMUS [...] request in chart. Reese Sage MD Pager [phone] [facility]02-17-2024 History and physical note* Timothy Joseph MD - 01/16/2024 1:13 AM EST Images from the original note were not included. Internal Medicine Admission History & Physical Patient: George Styles, 1970, [id number] Physician: Timothy Joseph MD, PGY1, Pager #[phone], TM 1 service Date of face to face patient encounter: 01/16/24 . Chief Complaint: Lower extremity edema and shortness of breath History Of Present Illness: George Styles is a 53 y.o. 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 Patient states that around a week ago [...] Surgeon: Enzo Heart DO; Location: [facility] INTERVENTIONAL RADIOLOGY (VIR) LIVER TRANSPLANT, ORTHOTOPIC N/A 04/12/2020 Laterality: N/A; Surgeon: LU Palma; Location: [facility] SAME DAY SURGERY MAIN OR KIDNEY TRANSPLANT W/O YSLETA DEL SUR NEPHRECTOMY N/A 04/12/2020 Laterality: N/A; Surgeon: LU Palma; Location: [facility] SAME DAY SURGERY MAIN OR [...] itraconazole Fax results to: Dr. White - [phone] Transplant Neph - [phone] Gabapentin 400 MG capsule Sig: Take 1 [...] erythema: Skin: No jaundice or rash Neuro: curtain fitter 3-7, 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 Strength grossly [...] 5mg CAD: non-obstructive CAD on [facility] 2018. - continue home aspirin 81mg daily Gout: continue home allopurinol 200mg daily BPH: continue home flomax 0.4mg daily Complexity. Obesity Body mass index is 32.8 kg/m . - Follow with PCP for dietary and lifestyle modifications. Any conditions listed below are present on admission unless otherwise specified. . DVT prophylaxis with lovenox Disposition: admitted to [facility] Code status is Full Staffed with Dr. Alona Valle, Timothy Joesph MD Internal Medicine PGY1 Attending Physician Addendum [...] Pierson, Luisa Steven, Renee Freed, Daisha Max Appraiser Oil And Water: José Miguel Garnica All Txt: 04/13/2020 (Kidney), [...] results found for: CYCLOSPORIN , CYCLOSPORIN2 , [id number] , CYCLORAND No results found for: SIROLIMUS [...] request in chart. Reese Sage MD Pager [phone] [facility] History of Present illness Narrative* Vladislav Dali [...] Prograf 0.2 MG Contact Info: Specialty (Yanci) [phone] [facility] [phone] [facility] [phone] [facility] [phone] Bedside Delivery ([facility]) [phone] * Anne Choudhury - 01/12/2024 3:09 PM EST [facility] RX OUTREACH ADVANCED: Call Information: Date and Time of Contact: 01/25/2024 10:23 AM Method of Contact: By Phone Contact Type: Prescriptions Contactor: [facility] OP Contactee: Patient Contact Outcome: Left message (prograf myco) Contact Info: Specialty (Quentin) [phone] [facility] [phone] [facility] [phone] [facility] [phone] Bedside Delivery ([facility]) [phone] documented in this encounterWVUMedicine [facility] Hospital02-13-2024 History of Present illness Narrative* Vladislav [...] Prograf 0.2 MG Contact Info: Specialty (Yanci) [phone] [facility] [phone] [facility] [phone] [facility] [phone] Bedside Delivery ([facility]) [phone] * Anne Choudhury - 01/12/2024 3:09 PM EST [facility] RX OUTREACH ADVANCED: Call Information: Date and Time of Contact: 01/25/2024 10:23 AM Method of Contact: By Phone Contact Type: Prescriptions Contactor: [facility] OP Contactee: Patient Contact Outcome: Left message (prograf myco) Contact Info: Specialty (Quentin) [phone] [facility] [phone] [facility] [phone] [facility] [phone] Bedside Delivery ([facility]) [phone] * Anne Choudhury - 01/12/2024 3:09 PM EST [facility] RX OUTREACH ADVANCED: Call Information: Date and Time of Contact: 01/27/2024 10:19 AM Method of Contact: By Phone Contact Type: Prescriptions Contactor: [facility] Contactee: Patient Contact Outcome: Left message (myco prograf) Contact Info: Specialty (Quentin) [phone] [facility] [phone] [facility] [phone] [facility] [phone] Bedside Delivery ([facility]) [phone] documented in this encounterWVUMedicine [facility] Hospital02-13-2024 History of Present illness Narrative* Vladislav [...] Prograf 0.2 MG Contact Info: Specialty (Yanci) [phone] [facility] [phone] [facility] [phone] Ra[facility] [phone] Bedside Delivery ([facility]) [phone] * Anne Choudhury - 01/12/2024 3:09 PM EST [facility] RX OUTREACH ADVANCED: Call Information: Date and Time of Contact: 01/25/2024 10:23 AM Method of Contact: By Phone Contact Type: Prescriptions Contactor: [facility] Contactee: Patient Contact Outcome: Left message (prograf myco) Contact Info: Specialty (Yanci) [phone] [facility] [phone] [facility] [phone] [facility] [phone] Bedside Delivery ([facility]) [phone] * Anne Choudhury - 01/12/2024 3:09 PM EST [facility] RX OUTREACH ADVANCED: Call Information: Date and Time of Contact: 01/27/2024 10:19 AM Method of Contact: By Phone Contact Type: Prescriptions Contactor: [facility] Contactee: Patient Contact Outcome: Left message (myco prograf) Contact Info: Specialty (Quentin) [phone] [facility] [phone] [facility] [phone] [place] [phone] Bedside Delivery ([facility]) [phone] * Andressa Gutiérrez - 01/12/2024 3:09 PM EST [facility] RX OUTREACH ADVANCED: Call Information: Date and Time of Contact: 02/01/2024 3:22 PM Contact Type: Prescriptions Contactor: [facility] Contactee: Patient Contact Outcome: Left message Shipping/Pickup: Medication Name: Mycophenolate 360mg and Prograf 0.2mg Pack Contact Info: Specialty (Quentin) [phone] [facility] [phone] [facility] [phone] [place] [phone] Bedside Delivery ([facility]) [phone] documented in this encounterWVUMedicine [facility]02-07-2024 History of Present illness Narrative* Zuly [...] The neurologist wanted to send him to [facility] neurology but it is out of [...] see neurologist in [facility] Immunocompromised (CMS/HCC) Hypertension (CMS/[facility]) No change in meds Check echo Relevant Orders Echocardiogram 2D complete Bilateral lower extremity edema Relevant Orders Echocardiogram 2D complete Shortness of breath Check ECHO Relevant Orders Echocardiogram 2D complete Other Visit Diagnoses 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 [facility] Work Phone: 1(677) 980-884411-07-2023 History of Present illness Narrative* Vladislav Dali [...] Prograf 0.2 MG Contact Info: Specialty (Yanci) [phone] [facility] [phone] [facility] [phone] [facility] [phone] Bedside Delivery ([facility]) [phone] * Gabbi Rajput - 10/06/2023 9:30 AM EST [facility] RX OUTREACH ADVANCED: Call Information: Date and Time of Contact: 10/23/2023 2:00 PM Method of Contact: By Phone Contact Type: Prescriptions Contactor: [facility] Contactee: Patient Contact Outcome: Left message and Call back later Shipping/Pickup: Medication Name: Mycophenolate 360mg and Prograf 0.2mg Contact Info: Specialty (Quentin) [phone] [facility] [phone] [facility] [phone] [facility] [phone] Bedside Delivery ([facility]) [phone] documented in this encounterWVUMedicine [facility] Hospital10-13-2023 Miscellaneous Notes* Nursing Notes - Cheyanne [...] the oxygen during the night. pt will clam picker his oxygen from [facility], 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 This [...] Patient seen ambulating in the velazquez with PROJECT MANAGEMENT ADVISOR. Patient was mildly short of breath on [...] 3:30 AM EDT Messaged Mainor Loomis, via [employer] secure chat, Temp 100.8. His tylenol order [...] short period of time. 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 Episode of [...] 7:30 PM EDT Message Mainor Loomis, via [employer] secure chat, Good evening, just an FYI, [...] short period of time. 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 This morning, [...] 8:[address] Loera here also (form designer) * Nursing Notes - Mary Case [...] 08/29/2023 10:49 PM EDT Sent a secure [employer] chat to Rosi LUZ concerning patient's temp [...] PM EDT Mr. Styles was admitted to [address] [place] [address]. On admission to [facility], from home a [...] nurses station when available. documented in this encounterWVUMedicine Harrison Community Hospital10-13-2023 History of Present illness Narrative* BENJY Syed - 09/11/2023 2:30 PM EDT Provided follow-up emotional and spiritual support. Patient shared about rosemary of discharge and looking forward to seeing family Cook Candy provided: - Supportive presence - Active listening - Validation of feelings/emotions Patient encouraged to request a media theorist and author of as needed. Chaplains are available in-house 24 hours a day and 7 days a week. For urgent matters in [facility], please page [phone]. If the request is not urgent, please enter a consult. Consults are responded to within 24 hours. Senior Staff Cook Candy Angie Singh Mdiv, [facility] Kirk [phone] [email or web address] 22/06 On-call [place]: [phone] 22/06 Pager ,[facility], and Brock Hernandez Pager [phone] 09/11/23 7235 Clinical Encounter Type Visited With Patient Visit Type Follow-up Pastoral Time Spent 15 min Referral Other (See Comment) (rounding) Spiritual Assessment Spiritual Observation Spirituality helpful Emotional Observation Coping well Hope Observation Specific hope focus Support Observation By Family Interventions Provided Active listening;Supportive presence Facilitated Verbalization of feelings Explored Expectations Molder Hand Education Molder Hand Service Available Yes Educated Patient Plan of Care Continue Visiting PRN * Dimitrios Gurrola [facility],PharmD - 09/11/2023 10:51 AM EDT Images from the original note were not included. [facility] ([facility]) Note: Non-Verbal Med Rec [facility] received the following discharge prescription(s): Total cost is $0. I have reviewed the Discharge Rx Reconciliation Report. The discharge prescription(s) will be delivered to the patient on 09/11/2023. Dimitrios Gurrola RPh,PharmD Specialty (Quentin) [phone] [facility] [phone] [facility] Bedside Delivery [phone] [facility] [phone] [facility] Bedside Delivery [phone] [place] [phone] [facility] Bedside Delivery [phone] [place] [phone] [place] [phone] * Evan Kelly MD - 09/10/2023 4:09 PM EDT Internal Medicine Daily Progress Note Patient: George Styles, 1970, [id number] Physician: Evan Kelly MD, PGY-1, TM1 service Subjective/Interval History: Patient continues to require oxygen overnight for desaturations. With insurance limitations, only accepting agency to provide home oxygen backed out. After calling them to discuss, Lynn stated she would be willing to have patient drive to their facility to clam picker supplies, however they close at 5pm. [...] Liver-kidney transplant on 04/13/20. His [place] kidney disease was noted to be presumed [...] BID CAD: non-obstructive CAD on [facility] 2018. - continue home aspirin 81mg daily, [...] 5.05 (H) 11/19/2018 Reese Sage MD, SERA Housekeeping Room Inspector of Clinical Medicine [facility] * Lora Lawrence RN - 09/10/2023 1:45 PM EDT Images from the original note were not included. Final Discharge Planning and Transportation Final Discharge Planning Discharge Disposition: Home Services at Discharge: Outpatient clinical services (ie: lab draws, transfusions, injectables) (Home Oxygen by [facility]) Selected Continued Care - Admitted Since 08/28/2023 Durable Medical Equipment Coordination complete. Service Provider Selected Services Address Phone Fax Patient Preferred [employer] Durable Medical Equipment [address] [facility] [address] [phone] Internal Comment last updated by Lora Lawrence RN 09/10/2023 1334 Correct contact information: [employer] [address] [place] [address] [place] [address] boat deckhand- you do not need to call at discharge, I already notified the company. Addendum 1523 [facility] notified this CM they are out of patient's insurance area and will not be able to service this patient at time of discharge. Provider notified. Addendum 7166 Dr Kelly called [facility] spoke to Lynn and she said they are willing to accept patient if the patient would drive to the [place] office and clam picker the supplies. Patient is willing to [...] Lora Colón RN, MSN, CCM, CMCN Clinical Senior Government Program Analyst- [facility] Transplant #[phone] * Matt Kramer RPh,PharmD - 09/10/2023 11:32 [...] dose adjustment Name: Matt Kramer RPh,PharmD Phone: [phone] Date/Time: 09/10/2023 11:33 AM * Lora Lawrence RN - 09/10/2023 11:08 AM EDT This CM sent referral via [employer] for O2 concentrator to 4 agencies Start date today Timer set for [address] [facility] [employer] Addendum 1332 One accepting company reserved in [employer] [facility] [address] [place] [place] [address] [place] [address] Lora Colón RN, MSN, CCM, CMCN Clinical Senior Government Program Analyst- [facility] Transplant #[phone] * RHIANNON [place] - 09/09/2023 3:18 PM EDT NUTRITION FOLLOW-UP Nutrition Plan of Care: 1. Continue current diet order. 2. No oral supplements warranted at this time. 3. Monitor for significant weight changes. Monitor GI, skin integrity. 4. Monitor and encourage po intakes with goal of average po being 75-100%. 5. e d tech to follow. Met with patient today at [...] time. Will continue to monitor. RHIANNON BirminghamR Pager:[phone] * Evan White, - 09/09/2023 12:28 PM EDT Transplant Infectious [...] sign off. Please Epic message or page [phone] with questions. Evan White DO Transplant Infectious Diseases * Evan Kelly MD - 09/09/2023 7:09 AM EDT Internal Medicine Daily Progress Note Patient: George Styles, 1970, [id number] Physician: Evan Kelly MD, PGY-1, TM1 service [...] Liver-kidney transplant on 04/13/20. His [place] kidney disease was noted to be presumed [...] BID CAD: non-obstructive CAD on [facility] 2018. - continue home aspirin 81mg daily, [...] Daily Progress Note Patient: George Styles, 1970, [id number] Physician: Laurel Serrano MD, PhD, PGY-3, TM1 [...] Liver-kidney transplant on 04/13/20. His [place] kidney disease was noted to be presumed [...] BID CAD: non-obstructive CAD on [facility] 2018. - continue home aspirin 81mg daily, [...] Daily Progress Note Patient: George Styles, 1970, [id number] Physician: Evan Kelly MD, PGY-1, TM1 service [...] Liver-kidney transplant on 04/13/20. His [place] disease was noted to be presumed [...] BID CAD: non-obstructive CAD on [facility] 2019. - continue home aspirin 81mg daily, [...] 5.05 (H) 11/19/2018 Reese Sage MD, SERA Housekeeping Room Inspector of Clinical Medicine [facility] * Ann Marie [...] to follow. Please Epic message or page [phone] with questions. Ann Marie Haskins MD PGY-4, [...] he continues to improve. Please message via [employer] secure chat or page with any questions or concerns. Evan White DO Housekeeping Room Inspector Division of Infectious Disease * Evan White [...] to follow. Please Epic message or page [phone] with questions. Evan White DO Transplant Infectious Diseases * Crow Diaz MD - 09/06/2023 1:02 PM EDT Images from the original note were not included. Pulmonary/Critical Care Medicine Daily Progress Note Reason for Consultation: bronch for infectious workup Requesting Physician: Dr. Sage CURRENT HOSPITALIZATION: Admit Date: 08/28/2023 [facility] LOS: 9 days Impression 1. Acute [...] and interpreted reviewed the radiographic data in [facility]. * Evan Kelly MD - 09/06/2023 9:09 AM EDT Internal Medicine Daily Progress Note Patient: George Styles, 1970, [id number] Physician: Evan Kelly MD, PGY-1, TM1 service [...] Liver-kidney transplant on 04/13/20. His [place] kidney disease was noted to be presumed [...] BID CAD: non-obstructive CAD on [facility] 2019. - continue home aspirin 81mg daily, [...] 5.05 (H) 11/19/2018 Reese Sage MD, MADISONN Housekeeping Room Inspector of Clinical Medicine [facility] * Crow Diaz MD - 09/05/2023 4:33 PM EDT Images from the original note were not included. Pulmonary/Critical Care Medicine Daily Progress Note Reason for Consultation: bronch for infectious workup Requesting Physician: Dr. Sage CURRENT HOSPITALIZATION: Admit Date: 08/28/2023 [facility] LOS: 8 days Impression 1. Acute [...] and interpreted reviewed the radiographic data in [facility]. * Fredi Mcfarlane, OT - 09/05/2023 2:50 PM EDT Acute [...] Assessment: Transfer Assessment: Sit to Stand Transfer [place] Level: Sit->Stand: independent Skilled Intervention/Details: Sit->Stand: x1 from EOB, x1 from toilet Stand to Sit Transfer [place] Level: Stand->Sit: independent Skilled Intervention/Details: Stand->Sit: x1 to toilet, x1 to EOB Functional Mobility: Functional Mobility [place] Level: Functional Mobility/Gait: independent Ambulation Distance (Feet): 20 Skilled Intervention/Details - Functional Mobility/Gait: pt performed functional mobility to/from RR w/ no overt LOB Outcome Score(s): CURRENT [facility] Daily Activity Inpatient Short Form Putting on/Taking Off Lower Body Clothin - A Little Assistance Bathin - A Little Assistance Toiletin - A Little Assistance Putting on/Taking Off Upper Body Clothin - No Assistance Groomin - No Assistance Eatin - No Assistance CURRENT [facility] Activity Raw Score: 21 CURRENT [facility] Activity Functional Limitation/Modifier: 32.79% Currently [...] Acute Physical Therapy Evaluation Prior to Admission [facility] score(s): PRIOR LEVEL AM-PAC Mobility Raw [...] Intact Mobility Assessment: Supine to Sit Mobility [place] Level: Supine->Sit: modified independence Bed Features/Set-up: Supine->Sit: Head of bed elevated Sit to Supine Mobility [place] Level: Sit->Supine: not tested Balance: Sitting Balance [...] environment. Transfer Assessment: Sit to Stand Transfer [place] Level: Sit->Stand: independent Skilled Intervention/Details: Sit->Stand: From EOB x 2 without difficulty. Stand to Sit Transfer [place] Level: Stand->Sit: independent Assistive Device: Stand->Sit: armed chair Skilled Rationale: Verbal cues, Positioning Gait/Functional Mobility: Gait Assessment [place] Level: Gait: stand-by assist Assistive Device: Gait: rollator Ambulation Distance (Feet): 400 Gait Deviations Identified: decreased grace, decreased gait speed Gait Skilled Rationale: verbal, upright posture, increase step length, increase foot clearance Skilled Intervention/Details - Gait: Reasonable foot clearnce without loss of balance but endorsingdyspnea as 6-7/10. Stairs: Stairs Assessment [place] Level: Stair Negotiation: not tested Outcome Score(s): CURRENT [facility] Basic Mobility Inpatient Short Form [...] a railin - A Little Assistance CURRENT [facility] Mobility Raw Score: 21 CURRENT [facility] Mobility Functional Limitation/Modifier: 28.97% Currently Impaired [...] Daily Progress Note Patient: George Styles, 1970, [id number] Physician: Evan Kelly MD, PGY-1, TM1 service [...] Liver-kidney transplant on 04/13/20. His [place] disease was noted to be presumed [...] BID CAD: non-obstructive CAD on [facility] 2018. - continue home aspirin 81mg daily, [...] 5.05 (H) 11/19/2018 Reese Sage MD, MADISONN Housekeeping Room Inspector of Clinical Medicine [facility] * Evan White DO - 09/04/2023 3:25 PM EDT Transplant [...] to follow. Please Epic message or page [phone] with questions. Evan White DO Transplant Infectious Diseases * Evan Kelly MD - 09/04/2023 1:20 PM EDT Images from the original note were not included. Internal Medicine Daily Progress Note Patient: George Styles, 1970, [id number] Physician: Evan Kelly MD, PGY-1, TM1 service [...] Liver-kidney transplant on 04/13/20. His [place] disease was noted to be presumed [...] BID CAD: non-obstructive CAD on [facility] 2019. - continue home aspirin 81mg daily, [...] P 450 system Reese Sage MD, SERA Housekeeping Room Inspector of Clinical Medicine [facility] * Laurel Serrano [...] and Pediatrics PGY-3 [facility] * Laurel Serrano MD, PhD - [...] and Pediatrics PGY-3 [facility] * Evan White, DO - 09/03/2023 3:38 [...] continue tofollow. Please Epic message or page [phone] with questions. Evan White DO Transplant Infectious Diseases * Evan Kelly MD - 09/03/2023 3:33 PM EDT Internal Medicine Daily Progress Note Patient: George Styles, 1970, [id number] Physician: Evan Kelly MD, PGY-1, TM1 service [...] nasal cannula (09/03/23 1055) Flow (L/min): 2 (10/05/23 1055) Gen: Alert, Awake, NAD, tired-appearing Eyes: [...] Liver-kidney transplant on 04/13/20. His [place] disease was noted to be presumed [...] function CAD: non-obstructive CAD on [facility] 2018. - continue home aspirin 81mg daily, [...] 5.05 (H) 11/19/2018 Reese Sage MD, MADISONN Housekeeping Room Inspector of Clinical Medicine [facility] * Evan Kelly MD - 09/02/2023 3:49 PM EDT Internal Medicine Daily Progress Note Patient: George Styles, 1970, [id number] Physician: Evan Kelly MD, PGY-1, TM1 service [...] Liver-kidney transplant on 04/13/20. His [place] disease was noted to be presumed [...] function CAD: non-obstructive CAD on [facility] 2018. - continue home aspirin 81mg daily, [...] 5.05 (H) 11/19/2018 Reese Sage MD, SERA Housekeeping Room Inspector of Clinical Medicine [facility] * Lora Lawrence [...] Lora Colón RN, MSN, CCM, CMCN Clinical Senior Government Program Analyst- R10 Transplant #[phone] * BENJY Syed - 09/02/2023 11:17 AM EDT Made introductory visit with patient. Provided emotional and spiritual support. Patient shared about: - Source of Rosemary: Camping/Fishing/Family - Spirituality/Hoahaoism Affiliation: raised Congregation - Family Support/history - Experience with illness/hospital course - Hopes for healing/future Cook Candy provided: - Supportive presence - Active listening - Validation of feelings/emotions - Pledged prayer Patient encouraged to request a media theorist and author of as needed. Chaplains are available in-house 24 hours a day and 7 days a week. For urgent matters in [facility], please page [phone]. If the request is not urgent, please enter a consult. Consults are responded to within 24 hours. Senior Staff Cook Candy Angie Singh Mdiv, BENJY [place] [phone] [email or web address] 22/06 On-call Kirk: [phone] 22/06 Pager ,BS, and Brock Hernandez Pager [phone] 09/02/23 1118 Clinical Encounter Type Visited With Patient Visit Type Introduction Pastoral Time Spent 15 min Referral Other (See Comment) (rounding) Spiritual Assessment Spiritual Observation Spirituality helpful Emotional Observation Coping well Hope Observation Specific hope focus Support Observation By Family Interventions Provided Active listening;Supportive presence Facilitated Verbalization of feelings Explored Expectations Molder Hand Education Molder Hand Service Available Yes Educated Patient Outcomes Patient [...] goal of average po being 100%. 5. e d tech to follow. George Styles is a 53 y.o. 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 His [place] disease was noted to be presumed hepatorenal syndrome. His post- transplant course was noteworthy for nephrostomy tube (05/17/2022-09/10/2022) due to concern for ureteral stone. He presents as a direct admission for fever, cough, for infectious workup. Pt unavailable and information obtained via chart review Ship Engines Operating Engineer Screening Pt's appetite is good. Pt with [...] with meds Food Allergies reviewed:Shellfish Cultural or Hoahaoism Restrictions/Preferences: None GI: Last Bowel Movement: 09/01/23 [...] Will continue to monitor. Cecilia Mattson DTR Pager:[phone] * Evan Kelly MD - 09/01/2023 3:44 PM EDT Internal Medicine Daily Progress Note Patient: George Styles, 1970, [id number] Physician: Evan Kelly MD, PGY-1, TM1 service [...] Liver-kidney transplant on 04/13/20. His [place] disease was noted to be presumed [...] function CAD: non-obstructive CAD on [facility] 2018. - continue home aspirin 81mg daily, [...] as outlined above. Reese Sage MD Pager [phone] * Heidy Chatman - 09/01/2023 2:00 PM EDTSummary: Pharmacy Med Rec Department of Pharmacy Admission Medication Reconciliation Note Patient: George Styles Room/Bed: [facility]/A The patient's allergies have been reviewed [...] Supply: 90 Refills: 0 Provider: Zuly Bruno VOICER Pharmacy: [facility] Other Comments: Patient reported his Last Home Dose of mycophenolate & tacrolimus was on 08/28/23 at 0900. Patient reported he was taking Bactrim and benzonatate for fevers and a cough he was having. Please feel free to contact me with any further questions. Name: Heidy Chatman Phone #: [phone] Date/Time: 09/01/2023 2:01 PM Time Spent: 15 minutes Associated attestation - Matt Kramer RPh,Frankie - 09/01/2023 2:28 PM EDT Department of Pharmacy Admission Medication Reconciliation Note Patient: George Styles Room/Bed: 1062/A I have reviewed the home medication list with the Tool And Die Supervisor. All changes to the home medication list have been updated in IHIS. Updated CABLE MAKER Med List: Prior to Admission Medications Prescriptions [...] questions. Name: Matt Kramer RPh,PharmD Phone #: [phone] Date/Time: 09/01/2023 2:28 PM * Evan Feliz Bensoncortezdinaangel, DO - 08/31/2023 4:49 PM EDT Transplant [...] continue tofollow. Please Epic message or page [phone] with questions. Evan White DO Transplant Infectious Diseases * Evan Kelly MD - 08/31/2023 7:17 AM EDT Internal Medicine Daily Progress Note Patient: George Styles, 1970, [id number] Physician: Evan Kelly MD, PGY-1, TM1 service [...] Liver-kidney transplant on 04/13/20. His [place] disease was noted to be presumed [...] function CAD: non-obstructive CAD on [facility] 2018. - continue home aspirin 81mg daily, [...] 5.05 (H) 11/19/2018 Reese Sage MD, SERA Housekeeping Room Inspector of Clinical Medicine [facility] * Kasandra Hurt [...] Yes Name and Contact information: Gian Styles ([phone]) Reviewed and Updated in Demographics? : Yes [...] patient on Anticoagulation? : No [id number] - [place] [address] - [address] [place] [address] [address] [facility] [address] Registered Nurse Cardiovascular Icu Does the patient or internet sales representative express financial concerns? : No [...] Plan 1. Identified self and role as Senior Government Program Analyst. 2. Confirmed and updated demographics and treatment team. 3. Senior Government Program Analyst will continue to follow with medical team/pt for any other additional discharge needs. Kasandra DON RN [facility] [phone] *Please note I am float CM and work Thursday and Thursday every other week. Please call [phone] for assist in my absence. * Evan Kelly MD - 08/30/2023 8:38 AM EDT Internal Medicine Daily Progress Note Patient: George Styles, 1970, [id number] Physician: Evan Kelly MD, PGY-1, TM1 service [...] Liver-kidney transplant on 04/13/20. His [place] disease was noted to be presumed [...] function CAD: non-obstructive CAD on [facility] 2018. - continue home aspirin 81mg daily, [...] 5.05 (H) 11/19/2018 Reese Sage MD, MADISONN Housekeeping Room Inspector of Clinical Medicine [facility] * Laurel Serrano MD, PhD - 08/29/2023 6:51 AM EDT Internal Medicine Daily Progress Note Patient: George Styles, 1970, [id number] Physician: Laurel Serrano MD, PhD, PGY-3, TM1 [...] Liver-kidney transplant on 04/13/20. His [place] disease was noted to be presumed [...] BID CAD: non-obstructive CAD on [facility] 2018. - continue home aspirin 81mg daily, atorvastatin 20mg daily Gout: continue home allopurinol 200mg daily BPH: continue home flomax 0.4mg daily DVT PPX: SQH Code Status: Full Code Disposition: Pending clinical course. Anticipate eventual discharge home. Discussed with team and attending, Reese Sage MD, on rounds. Signed, Laurel Serrano MD, PhD documented in this encounterWVUMed[facility] Hospital Discharge instructions* Discharge Instructions* Laurel [...] a sleep doctor. You will need to clam picker the oxygen concentrator when you leave [...] focus on healthy foods. documented in this encounterWVUMedicine [facility]10-03-2023 Consult note* Izzy Loera MD - 09/01/2023 12:26 PM EDTAssociated Order(s): IP CONSULT TO PULMONOLOGY Pulmonary Medicine Inpatient Consultation Reason for Consultation: bronch for infectious workup Requesting Physician: Dr. Sage Pulmonary Attending Physician: Dr. Diaz CURRENT HOSPITALIZATION: Admit Date: 08/28/2023 [facility] LOS: 4 days Impression/Recommendations: George Stylse [...] short period of time. 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 Other histories as documented in the [...] ill contacts. He traveled to [place] to [facility] in May. REVIEW OF SYSTEMS A [...] Surgeon: Enzo Heart DO; Location: [facility] INTERVENTIONAL RADIOLOGY (VIR) LIVER TRANSPLANT, ORTHOTOPIC N/A 04/12/2020 Laterality: N/A; Surgeon: LU Palma; Location: [facility] SAME DAY SURGERY MAIN OR KIDNEY TRANSPLANT W/O YSLETA DEL SUR NEPHRECTOMY N/A 04/12/2020 Laterality: N/A; Surgeon: LU Palma; Location: [facility] SAME DAY SURGERY MAIN OR [...] Ko MD I can be reached via [employer] secure message (preferred) or Pager #[phone] documented in this encounterWVUMedicine [facility]09-29-2023 History and physical note* Aric Turner MD - 08/28/2023 6:14 PM EDT Images from the original note were not included. Internal Medicine Admission History & Physical Patient: George Styles, 1970, [id number] Physician: Aric Turner MD, PGY1, Pager #[phone], CB service Date of face to face patient [...] So he went to see the transplant photogrammetry airplane pilot. He was found elevated Cr and asked [...] Appetite is ok now. Urine is about 0557-7318 ml every day. Stool every day, no [...] Surgeon: Enzo Heart DO; Location: [facility] INTERVENTIONAL RADIOLOGY (VIR) LIVER TRANSPLANT, ORTHOTOPIC N/A 04/12/2020 Laterality: N/A; Surgeon: LU Palma; Location: [facility] SAME DAY SURGERY MAIN OR KIDNEY TRANSPLANT W/O YSLETA DEL SUR NEPHRECTOMY N/A 04/12/2020 Laterality: N/A; Surgeon: LU Palma; Location: [facility] SAME DAY SURGERY MAIN OR [...] Liver-kidney transplant on 04/13/20. His [place] disease was noted to be presumed [...] Urinary histoplasmosis - PJP, candid PCR - Utilization Reviewer transplant ID Acute Kidney Injury with [...] BID CAD: non-obstructive CAD on [facility] 2018. - continue aspirin 81mg daily, atorvastatin [...] Pierson, Luisa Steven, Renee Freed, Daisha Max Appraiser Oil And Water: José Miguel Garnica All Txt: 04/13/2020 (Kidney), [...] results found for: CYCLOSPORIN , CYCLOSPORIN2 , [id number] , CYCLORAND No results found for: SIROLIMUS [...] Rest as above. Reese Sage MD Pager [phone] documented in this encounterU [facility] History of Present illness Narrative* Rochelle Ribeiro RN - 08/28/2023 2:15 PM EDT Images from the original note were not included. 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 ADDITIONAL INFORMATION: None Specified, [id number] - [place] [address] - [address] [facility] [address] [facility] [address] [facility] [address] [facility] [address] [facility]/pharmacy [facility][id number] [place] [address] [address] [facility] [address] [facility] [address] [facility] Jakob [address], [place] [address] [place] [address] ROS and SCREEN: Chest Pain: negative Cough: [...] EDT I saw George Styles at the [facility] on 08/28/2023. Patient is a 53 y.o. 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 His [place] disease was noted to be presumed [...] Surgeon: Enzo Heart DO; Location: [facility] INTERVENTIONAL RADIOLOGY (VIR) LIVER TRANSPLANT, ORTHOTOPIC N/A 04/12/2020 Laterality: N/A; Surgeon: LU Palma; Location: [facility] SAME DAY SURGERY MAIN OR KIDNEY TRANSPLANT W/O YSLETA DEL SUR NEPHRECTOMY N/A 04/12/2020 Laterality: N/A; Surgeon: LU Palma; Location: [facility] SAME DAY SURGERY MAIN OR [...] you have any questions. Steve Munoz MD school cleaner Division of [facility]phrology [facility] documented in this encounterOSMetrohealth [facility]09-29-2023 Instructions* Patient Instructions* Mainor Busby RN - 08/28/2023 2:15 PM EDT - Admission for fevers, cough, and night sweats documented in this encounterWVUMedicine [facility]09-20-2023 History of Present illness Narrative* Andressa [...] Required: No Mailing/Pickup Date: 08/25/2023 Shipping Address: [address] [place] [address] Contact Info: Specialty (Quentin) [phone] Jakob [phone] [facility] [phone] Raheem [phone] Bedside Delivery ([facility]) [phone] documented in this encounterWVUMedicine [facility]07-14-2023 History of Present illness Narrative* JEANNA Hess - 06/12/2023 3:00 PM EDT Images from the original note were not included. George Styles is a 53 y.o. 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 The HLA mismatch was 1A,2B, 1DR. No longer follows with a local photogrammetry airplane pilot. History of Present Illness: Since George was [...] and lab results. Rebeca Gutierrez MSN, RN, ADVERTISING SALES EXECUTIVE-BC, CCTN Certified Nurse Practitioner Comprehensive Transplant Center [facility] [address] [facility] [address] documented in this encounterOSU [facility]07-14-2023 Instructions* Patient Instructions* JEANNA Hess - 06/12/2023 3:00 PM EDT No change in immunosuppression. documented in this encounterWVUMedicine [facility]07-12-2023 History of Present illness Narrative* Anne Choudhury - 06/10/2023 3:16 PM EDT [facility] OUTREACH ADVANCED: Call Information: Method of Contact: By Phone Contact Type: Prescriptions Contactor: [facility] OP Contactee: Patient Contact Outcome: Left message Shipping/Pickup: Medication Name: Mycophenolate sod 180 mg Contact Info: Specialty ([place]) [phone] [facility] [phone] [facility] [phone] Raheem [phone] Bedside Delivery ([facility]) [phone] * Negra Burks - 06/10/2023 3:16 PM EDT [facility] OP RX OUTREACH ADVANCED: Call Information: Date and Time of Contact: 06/12/2023 9:43 AM Method of Contact: By Phone Contact Type: Prescriptions Contactor: [facility] OP Contactee: Patient Contact Outcome: Left message and Follow-up Shipping/Pickup: Medicare B Refill?: No Medication Name: Myco 180 Contact Info: Specialty (Quentin) [phone] [facility] [phone] [facility] [phone] Raheem [phone] Bedside Delivery ([facility]) [phone] * Mikaela Pierre - 06/10/2023 3:16 PM EDT [facility] OP RX OUTREACH ADVANCED: Call Information: Date and Time of Contact: 06/12/2023 10:08 AM Method of Contact: By Phone Contact Type: Prescriptions Contactor: [facility] OP Contactee: Patient Shipping/Pickup: Medicare B Refill?: No Medication Name: Mycophenolate 180mg DR Delivery Method: Air Delivery Location: Home Signature Required: No Mailing/Pickup Date: 06/17/2023 Shipping Address: [address] [address] Contact Info: Specialty (Yanci) [phone] Jakob [phone] [facility] [phone] Raheem [phone] Bedside Delivery ([facility]) [phone] documented in this encounterWVUMedicine [facility]04-13-2023 History of Present illness Narrative* Anne [...] No Mailing/Pickup Date: 03/16/2023 Shipping Address: [address] [place] [address] Contact Info: Specialty (Quentin) [phone] Jakob [phone] [facility] [phone] Raheem [phone] Bedside Delivery ([facility]) [phone] * Andressa Gutiérrez - 03/12/2023 10:34 AM [...] Required: No Mailing/Pickup Date: 03/19/2023 Shipping Address: [address] [place] [address] [address] Contact Info: Specialty (Yanci) [phone] [facility] [phone] [facility] [phone] Raheem [phone] Bedside Delivery ([facility]) [phone] documented in this encounterWVUMedicine [facility]04-11-2023 History of Present illness Narrative* Vladislav Mcnally - 03/10/2023 11:58 AM EDT [facility] OUTREACH ADVANCED: Call Information: Date and Time of Contact: 03/10/2023 12:00 PM Method of Contact: By Phone Contact Type: Prescriptions Contactor: [facility] Contactee: Patient Contact Outcome: Left message and Call back later Shipping/Pickup: Medication Name: Mycophenolate ; Tacrolimus Contact Info: Specialty (Quentin) [phone] [facility] [phone] [facility] [phone] Raheem [phone] Bedside Delivery ([facility]) [phone] documented in this encounterOS[facility]-11-[facility] History of Present illness Narrative* Vladislav Mcnally - 03/10/2023 11:58 AM EDT [facility] OUTREACH ADVANCED: Call Information: Date and Time of Contact: 03/10/2023 12:00 PM Method of Contact: By Phone Contact Type: Prescriptions Contactor: [facility] Contactee: Patient Contact Outcome: Left message and Call back later Shipping/Pickup: Medication Name: Mycophenolate ; Tacrolimus Contact Info: Specialty (Quentin) [phone] [facility] [phone] [facility] [phone] Raheem [phone] Bedside Delivery ([facility]) [phone] * Anne Choudhury - 03/10/2023 11:58 AM EDT [facility]REACH [facility]: Call Information: Date and Time of Contact: 03/12/2023 10:32 AM Method of Contact: By Phone Contact Type: Prescriptions Contactor: [facility] Contactee: Patient Contact Outcome: Left message Shipping/Pickup: Medication Name: Mycophenolate sodium (MYFORTIC) 180 MG Tab tacrolimus 0.5 mg Contact Info: Specialty (Quentin) [phone] [facility] [phone] [facility] [phone] Raheem [phone] Bedside Delivery ([facility]) [phone] documented in this encounterWVUMedicine [facility]02-17-2023 History of Present illness Narrative* Daisha [...] Surgeon: Enzo Heart DO; Location: [facility] INTERVENTIONAL RADIOLOGY (VIR) LIVER TRANSPLANT, ORTHOTOPIC N/A 04/12/2020 Laterality: N/A; Surgeon: LU Palma; Location: [facility] SAME DAY SURGERY MAIN OR KIDNEY TRANSPLANT W/O YSLETA DEL SUR NEPHRECTOMY N/A 04/12/2020 Laterality: N/A; Surgeon: LU Palma; Location: [facility] SAME DAY SURGERY MAIN OR [...] 0.3 12/29/2022 Explant Pathology Pathologic Diagnosis A. [place] liver, orthotopic liver transplant resection (1458 gram): [...] IV contrast (06/27/2022): 1. Both [place] kidneys are atrophic with improvement in right-sided [...] frequent nighttime urination, etc). Daisha Max DO Housekeeping Room Inspector Gastroenterology, Hepatology and Nutrition [facility] Pager: [phone] * José Miguel Garnica RN - 01/16/2023 9:40 AM EST Images from the original note were not included. 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 ADDITIONAL INFORMATION: None Specified [id number] [place] [address] - [address] [address] [facility] [address], [address] [place] [address] [id number] [place] [address] [address] [facility] [address] [facility] [address] [facility] Jakob [address], [address] [place] [address] ROS and SCREEN: Chest Pain: negative Cough: negative SOB: negative Abd Pain: negative Nausea: negative Vomiting: negative Diarrhea: negative Constipation: negative Dysuria: negative Edema: negative Tremors: negative Headaches: negative Wound issues: negative Alcohol consumption: no Cigarette smoking, smokeless tobacco or vaping/e-cigarette use: no Marijuana (any form), CBD oil or street drug use: no QUESTIONS OR CONCERNS TO ADDRESS WITH PHYSICIAN: documented in this [facility]02-17-[facility] Instructions* Patient Instructions* José Miguel Garnica RN - 01/16/2023 9:40 AM EST - Labs Every 2 months - Discuss night time urination with your PCP - Schedule Colonoscopy through PCP - Follow up in 1 year documented in this [facility]10-12-2022 History of Present illness Narrative* Ryan [...] hydronephrosis. Some reflux up the [place] right ureter but good drainage of both transplant and [place] ureter to the bladder. Nephrostomy tube was [...] (N/A, 04/12/2020); kidney transplant w/o [place] nephrecto my (N/A, 04/12/2020); and placement nephrostomy [...] Negative for , diarrhea, constipation Genitourinary: See [place] Neurological: Negative for headaches. Lymph/Heme: Negative for [...] x 4, Normal strength. No edema. Skin: Luis Lopez, warm, and dry. There are no rashes [...] hydronephrosis. Some reflux up the [place] right ureter but good drainage of both transplant and [place] ureter to the bladder. Nephrostomy tube was [...] Ryan Yepez MD 09/10/22 documented in this encounterWVUMedicine [facility]08-08-2022 History of Present illness Narrative* Tati [...] the table and escorted to medical receptionist biller where they made a follow up. * [...] transplant ureter with anastomosis to [place] right ureter. Nephrostogram without filling defects and no hydronephrosis. Some reflux up the [place] right ureter but good drainage of both transplant and [place] ureter to the bladder. Nephrostomy tube was removed without issue. Patient does have some sensation of incomplete bladder emptying and occasional sensation in his right flank. PVR today was 33cc. Will re-evaluate urinary symptoms at next appointment. --continue Flomax --RTC in one month flow flow/PVR/IPSS Patient to call with any additional questions or concerns. Ryan Yepez MD 07/07/22 documented in this encounterWVUMedicine [facility]07-29-2022 History of Present illness Narrative* Ryan [...] (N/A, 04/12/2020); kidney transplant w/o [place] nephrecto my (N/A, 04/12/2020); and placement nephrostomy [...] Negative for , diarrhea, constipation Genitourinary: See [place] Neurological: Negative for headaches. Lymph/Heme: Negative for [...] x 4, Normal strength. No edema. Skin: Luis Lopez, warm, and dry. There are no rashes [...] yo male with a DDRT to the [facility] in 2019. Nephrostomy tube placed 05/17 [...] bag if needed. documented in this encounterOSU [facility]07-29-2022 History and physical note* JEANNA Padilla - 06/27/2022 10:40 AM EDT Patient was evaluated in clinic as a nurse visit. Please refer to Rena Brewster's note. [facility] Work Phone: [phone] 226-349707-29-2022 History and physical note* JEANNA Padilla - 06/27/2022 10:40 AM EDT Patient was evaluated in clinic as a nurse visit. Please refer to Rena Brewster's note. documented in this encounterOSU [facility]07-29-2022 History of Present illness Narrative* Rena Brewster RN - 06/27/2022 10:40 AM EDT TEACHING REGARDING TX NEPH COMPLETED-NEPH TUBE SITE DRY AND INTACT-CLEAR YELLOW URINE IN THE BAG-INSTRUCTED ABOUT FLUSHING, BAG CHANGING ETC. NUMEROUS QUESTIONS ASKED AND ANSWERED-VERBALIZED UNDERSTANDING documented in this encounterOSU [facility] Health System07-20-2022 NoteEXAMINATION: CT ABD/PELVIS WO CON HISTORY: UNSPECIFIED [...] enlargement. KIDNEYS: Marked atrophy of [place] kidneys. Transplant right pelvic kidney with percutaneous [...] authenticated by: MÓNICA JIMENEZ Date: 2022-06-18 13:53[facility]07-14-2022 Instructions* Patient Instructions* Anayeli Christianson RN - 06/12/2022 3:21 PM EDT Do not take apart/disrupt nephrostomy tube system. Call Interventional Radiology and/or on-call transplant nurse [phone] for instruction if need to flush (clot or decreased flow). Take cipro 500mg, one tablet, twice per day for 14 days documented in this encounterWVUMedicine [facility]07-14-2022 History of Present illness Narrative* Roxanne Grimes RN - 06/12/2022 2:15 PM EDT Images from the original note were not included. 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 Percutaneous Neph Tube placed * Anayeli Christianson RN - 06/12/2022 2:15 PM EDT Images from the original note were not included. Nursing Assessment In Clinic (see Clinic Prep Sheet for additional information) Patient is accompanied to clinic today by: self Did patient require a wheelchair or medical transport for appointment: no Did front end web developer confirm current address and insurance information [...] PREFERRED LAB AND PHARMACY: None Specified [facility] [place] [phone] - [address] [address] [facility] [address] [facility] [address] [id number] [place] [address] [address] [facility] [address] [facility] [address] [facility] Jakob [address], [address] [facility] [address] ROS and SCREEN: Chest Pain: negative Cough: [...] 06/12/2022 2:15 PM EDT I saw George Feliz Jensen at the [facility] on 06/12/2022. Patient is a 52 y.o. 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 His [place] kidney disease was noted to be presumed [...] Surgeon: Enzo Heart DO; Location: [facility] INTERVENTIONAL RADIOLOGY (VIR) LIVER TRANSPLANT, ORTHOTOPIC N/A 04/12/2020 Laterality: N/A; Surgeon: LU Palma; Location: [facility] SAME DAY SURGERY MAIN OR KIDNEY TRANSPLANT W/O YSLETA DEL SUR NEPHRECTOMY N/A 04/12/2020 Laterality: N/A; Surgeon: LU Palma; Location: [facility] SAME DAY SURGERY MAIN OR [...] you have any questions. Steve Munoz MD school cleaner Division of Nephrology [facility] documented in this encounterOSU [facility]07-06-2022 Instructions* Patient Instructions* TATI GORVE - 06/04/2022 11:04 AM EDT Thank you for joining us for your neph tube follow up. We recommend routine exchange every 8-10 weeks. Please reach out at [phone] when it is time to set your next routine exchange. Thank you IR clinic documented in this encounterU [facility]07-06-2022 History of Present illness Narrative* Litzy Brice [...] to schedule exchange.Verbalized understanding. documented in this encounterWVUMedicine [facility]06-21-2022 Note* Nursing Notes - Leon Cook [...] time of his discharge. Leon Cook RN [facility]06-21-2022 Miscellaneous Notes* Nursing Notes - Leon [...] provide teaching before his discharge Leon RN #[id number] Leon Cook RN * Plan of Care [...] - 05/19/2022 12:44 PM EDT Discussed with [facility] re: possible urine culture performed at [...] with questions. Evan Byrd MD Urology, PGY-2 #[id number] * Certification - Nishant Gamez MD - [...] Added:N Kallie Lorenzana RN documented in this encounterOS[facility]06-21-2022 Note* Plan of Care - [...] discharge/transition of care. Outcome: Adequate for Discharge [facility]06-21-2022 Note* Nursing Notes - Leon Cook RN - 05/20/2022 2:01 PM EDT Paged Vera Dillard MD R10 Rm [phone] Jensen George Please let's have a clear order on how the nephrostomy site dressing need to be changed when the patient goes home so we provide teaching before his discharge Leon RN #[id number] Leon Cook RN [facility]06-21-2022 History of Present illness Narrative* Yanira Her RPh,PharmD - 05/20/2022 12:01 PM EDT Images from the original note were not included. [facility] Note: [facility] received the following discharge prescription(s): Medication reconciliation was completed with comparison to discharge reconciliation report. The prescription(s) will be delivered to the patient's bedside on 05/20/22. Total cost is $0. Yanira Her RPh,PharmD [facility] ([facility] [phone] [facility] [phone] [facility] [phone] Raheem [phone] [place] [phone] Bedside Delivery ([facility]) [phone] * Maxi Pringle MD - 05/19/2022 12:32 PM EDT Attending I saw Georeg Styles at the [facility] on 05/19/2022. I saw and [...] Evan Bennett MD 650 mg at 05/18/22 1132 allopurinol (ZYLOPRIM) tablet 100 mg 100 mg [...] Daily Progress Note Patient: George Styles, 1970, [id number] Physician: Liam Julian MD, PGY-3, Pager #[phone], [id number] Subjective/Interval History: No acute events overnight. Passed stone this morning, will send to lab for analysis. Overall reporting improvement in abdominal pain. Objective: Vitals: 05/19/22 0400 BP: 174/77 Pulse: 62 Resp: 16 Temp: 97.8 F (36.6 C) O2 Device: room air (05/19/22 040) Flow (L/min): 3 (05/17/22 1719) Gen: NAD, [...] MD (Peggy) Division of Hospital Medicine Pager [phone] * Maxi Pringle MD - 05/18/2022 7:39 AM EDT Attending I saw George Styles at the [facility] on 05/18/2022. 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 Daya (Aggie Saldana MD Division of Hospital Medicine Pager [phone] * Nishant Gamez MD - 05/17/2022 8:04 AM EDT Internal Medicine Daily Progress Note Patient: George Styles, 1970, [id number] Physician: Nishant Gamez MD, PGY2, Pager #[phone], [email or web address] Subjective/Interval History: Worsening creatinine this morning with [...] MD (Peggy) Division of Hospital Medicine Pager [phone] * Maxi Pringle MD - 05/17/2022 7:07 AM EDT Attending I saw George Styles at the [facility] on 05/17/2022. I saw and [...] review of chart and discussion withtreatment team, Senior Government Program Analyst has not identified needs at this [...] EDT Introduced self and role of the media theorist and author of to patient. Provided emotional and spiritual support and the patient responded by sharing their experience and discussed the following: - Spirituality/Hoahaoism Affiliation: As a kid attended [employer] but not a strong identity now - Family support - pt's brothers live close by Cook Candy provided: - Supportive presence - Active listening - Validation of feelings/emotions Patient encouraged to request a media theorist and author of as needed. Chaplains are available in-house 24 hours a day and 7 days a week. For urgent matters in [facility], please page [phone]. If the request is not urgent, please enter a consult. Consults are responded to within 24 hours. Angie Singh Mdiv, [facility] [place] [address] Cook Candy [facility] Cook Candy Kirk [phone] [email or web address] [email or web address] [facility] Pager [phone] 22/06 Pager ,BS, and [place] 1500 22/06 [place] Pager [phone] 05/16/22 1129 Clinical Encounter Type Visited With Patient Visit Type Introduction Pastoral Time Spent 15 min Referral Other (See Comment) (Rounding) Spiritual Assessment Spiritual Observation Spirituality helpful;Identifies as (see comment) (Roman Catholic) Emotional Observation Coping well Hope Observation Hopeful and accepting Support Observation By Family Interventions Provided Active listening;Supportive presence Facilitated Verbalization of feelings;Sharing of life story;Identifying support system Explored Expectations Molder Hand Education Molder Hand Service Available Yes Educated Patient Outcomes Patient Outcomes Articulated purpose/meaning Plan of Care Continue Visiting PRN * Nishant Gamez MD - 05/16/2022 8:27 AM EDT Internal Medicine Daily Progress Note Patient: George Styles, 1970, [id number] Physician: Nishant Gamez MD, PGY2, Pager #[phone], [email or web address] Subjective/Interval History: Overall feeling okay this morning. 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 [...] Supervision Transfer Assessment: Sit to Stand Transfer [place] Level: Sit->Stand: independent Skilled Intervention/Details: Sit->Stand: x1 from EOB Stand to Sit Transfer [place] Level: Stand->Sit: supervision Assistive Device: Stand->Sit: armed chair Skilled Rationale: Controlled descent for sitting, Verbal cues Gait/Functional Mobility: Gait Assessment [place] Level: Gait: supervision Assistive Device: Gait: gait belt Gait Distance (feet): 200 Gait Deviations Identified: decreased grace, decreased step length, decreased stride length Gait Skilled Rationale: verbal, upright posture Skilled Intervention/Details - Gait: Pt with steady gait without LOB or complaints of SOB. Stairs: Stairs Assessment [place] Level: Stair Negotiation: stand-by assist Assistive Device: Stair Negotiation: gait belt, left rail (ascending) Number of stairs: 9 Stairs Skilled Rationale: reciprocal pattern Outcome Score(s): CURRENT [facility] Basic Mobility Inpatient Short Form Turning over in bed: 4 - No Assistance Sitting/standing from chair: 4 - No Assistance Moving from lying on back to sittin - No Assistance Moving to and from bed to chair: 4 - No Assistance Walk in hospital room: 3 - A Little Assistance Climbing 3-5 steps with a railin - A Little Assistance CURRENT [facility] Mobility Raw Score: 22 CURRENT [facility] Mobility Functional Limitation/Modifier: 20.91% Currently [...] community) Prior Level of Function 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 IADL History IADLs: independent Primary Language: [place] Home Management Skills: independent Meal Prep [...] Assessment: Transfer Assessment: Sit to Stand Transfer [place] Level: Sit->Stand: independent Skilled Rationale: Cues for increased safety Skilled Intervention/Details: Sit->Stand: x1 EOB Stand to Sit Transfer [place] Level: Stand->Sit: supervision Assistive Device: Stand->Sit: gait belt, armed chair Skilled Rationale: Verbal cues, Controlled descent for sitting, Cues for increased safety Skilled Intervention/Details: Stand->Sit: cues for hand placement and controlled descent Functional Mobility: Functional Mobility [place] Level: Functional Mobility/Gait: stand-by assist Assistive Device: Functional Mobility/Gait: gait belt Functional Mobility Distance: Distance needed for limited community mobility Functional Mobility Deficits: Activity tolerance, Balance, Decreased step length, Generalized weakness Functional Mobility Skilled Rationale: Verbal cues, Facilitate postural control Skilled Intervention/Details - Functional Mobility/Gait: cues for upright posture Outcome Score(s): CURRENT -[facility] Daily Activity Inpatient Short Form Putting on/Taking Off Lower Body Clothin - A Little Assistance Bathin - A Little Assistance Toiletin - A Little Assistance Putting on/Taking Off Upper Body Clothin - No Assistance Groomin - No Assistance Eatin - No Assistance CURRENT AM-[facility] Activity Raw Score: 21 CURRENT AM-PAC [...] DAY SURGERY MAIN OR KIDNEY TRANSPLANT W/O YSLETA DEL SUR NEPHRECTOMY N/A 04/12/2020 Laterality: N/A; Surgeon: LU [...] by: Mel Norman OT, OTR/L License #: [id number] pager # [phone] 05/20/2022 Upon discontinuation of Acute Care Occupational Therapy Services or patient discharge from the hospital this note represents the current Occupational Therapy Discharge Summary. documented in this [facility]06-21-20[facility] Hospital course Narrative* Nishant Gamez MD [...] his recent hospital stay at [facility]. As you may know, George Styles, is [...] Saldana MD Division of Hospital Medicine p: [phone] f: [phone] CONSULTS DURING ADMISSION: IP CONSULT TO SURGERY - UROLOGY IP CONSULT TO NEPHROLOGY - TRANSPLANT (MEDICINE) IP CONSULT TO INTERVENTIONAL RADIOLOGY IP CONSULT TO PHYSICAL THERAPY IP CONSULT TO OCCUPATIONAL THERAPY IP CONSULT TO PHARMACY BEDSIDE DISCHARGE MED DELIVERY IMAGING / PROCEDURES / RESULTS: Should you require further information or copies of results or reports please contact [place] @ [phone] LABS AT TIME OF DISCHARGE: Lab Results [...] Zuly Bruno [address] [facility] [place] [address] MEDICATIONS: Discharge Orders CT ABDOMEN/PELVIS WITHOUT CONTRAST [...] CAPS Generic drug: docusate Follow-up: Zuly Bruno, PROTECTIVE SIGNAL SUPERINTENDENT [address] [facility] [address] Schedule an appointment as soon as possible for a visit Follow-up appointment with your, primary care physician within 7-10 days, after discharge. [address] [facility] [phone] Follow up The department of urology will call you with a follow up appointment. LU Ovalle [address] 11[address] Floor [facility] [phone] Follow up Please make a follow up appointment with Dr. Munoz's office. Upcoming Appointments (up to five)-Some appointments for Medical Center outpatient clinics or diagnostic testing locations are not displayed below Provider Department Dept Phone 06/04/2022 10:40 AM IR CLINIC [facility] Interventional Radiology Clinic [phone] 06/27/2022 1:30 PM [facility] Department of Radiology Arrive at: Arrive to First Floor Registration Desk [phone] 06/27/2022 2:40 PM Ryan Yepez [facility] Arrive at: Arrive to 2nd Floor, Registration [address] 10/31/2022 1:00 PM Steve Munoz [facility] [facility] [phone] 01/16/2023 9:40 AM TRANSPLANT HEPATOLOGY 3, [facility] [phone] Associated attestation - Daya Saldana MD - [...] pea sized stone on 06/19 and this wassent to the lab for [...] MD (Peggy) Division of Hospital Medicine Pager [phone] documented [facility] Hospital Discharge instructions* Discharge Instr - Wound [...] be changed by Interventional Radiology. Please call [phone] to schedule this appointment and with any questions or concerns you may have regarding the nephrostomy tube. If you have questions or concerns, please call Interventional Radiology at SOMEONE FROM INTERVENTIONAL RADIOLOGY WILL CALL YOU FOR A FOLLOW UP IN THE CLINIC Giulia Cavazos RN Nurse Coordinator Interventional Radiology Interventional Radiology Outpatient scheduling documented in this encounter[facility]-20-2022 Note* Plan of Care - Josey Braun [...] Ongoing Goal: Interdisciplinary Rounds/Family Conf Outcome: Ongoing [facility]06-20-2022 Note* Plan of Care - Liam Julian MD - 05/19/2022 12:44 PM EDT Discussed with [facility] re: possible urine culture performed at their facility. However, based on urinalysis completed at that time, which was only notable for hematuria, culture was not performed and sample no longer feasible for culture. Liam Julian MD Internal Medicine/Pediatrics, PGY-3 [facility]06-19-2022 Note* Nursing Notes - Carolyn Isaac RN - 05/18/2022 8:03 PM EDT 2003: IHIS message sent to Dr Justyn Wen, regarding patient passing a small kidney stone, about the size of pea. MD notified. Stone left in strainer in pt bathroom. 0500: IHIS message sent to Dr Justyn Wen, regarding pt BP 174/77. [facility]06-19-20[facility] Note* Plan of Care - Mel [...] discharge/transition of care. Outcome: Ongoing [facility]06-19-2022 Note* Plan of Care - Елена [...] be used. [facility] Work Phone: 1(216) 661-310506-19-2022 Note* Nursing Notes - Carolyn Isaac RN - 05/18/2022 4:37 AM EDT IHIS chat sent to Dr Tray Quintana, regarding pt BP 190/86. Pt complaining of pain at site of neph tube. PRN pain medication given per order parameters. Pt denies any other symptoms at this time. MD notified and aware. [facility]06-18-2022 Note* Nursing Notes - Danitza Thompson RN - 05/17/2022 12:28 PM EDT At 0900, I rounded with Dr. Gamez and Dr. Saldana. At that time I checked Mr. Styles's vital signs. His pulse oximeter was low and he was tachypneic. Verbal order at bedside to put nasal cannula on starting at 2liters oxygen and to provide incentive spirometer. [facility]06-18-2022 Note* Nursing Notes - Meka Rincon RN - 05/17/2022 10:52 AM EDT Interventional Radiology procedure completed with IR Attending Dr. Heart / Dr. Le of percutaneous right nephrostomy tube placement transplant kidney 10.2 Fr Griffin acosta Pt tolerated procedure with moderate sedation local numbing agent . Transported to inpatient after phase I recovery. Post procedure orders in place. [facility]06-17-2022 Note* Nursing Notes - Danitza Thompson RN - 05/16/2022 4:57 PM EDT At 1530, I text chavad Kaitlynn Gomez MD that patient has only had 25ml urine output in matias this afternoon. [facility]06-17-2022 Note* Plan of Care - Evan [...] with questions. Evan Byrd MD Urology, PGY-2 #[id number] [facility] Work Phone: 1(749) 265-103806-17-2022 Note* Certification - Nishant Gamez MD - 05/16/2022 11:20 AM EDT I certify that this patient requires inpatient services at this time. I anticipate the expected length of stay will include at least two midnights. Inpatient services are due to the following medicalconcerns Obstructive kidney stone. Plans for post hospitalization care will be discharge to home. [facility] Consult note* Maria De Jesus Pollock MD, PhD - 05/16/2022 9:37 AM EDTAssociated Order(s): IP CONSULT TO NEPHROLOGY - TRANSPLANT (MEDICINE) I saw George Styles at the [facility] on 05/16/2022. Reason for Consultation: [...] where he was given flomax and senthome. Morrill better but noticed more pain and decreased [...] best assessment and recommendations. Maxi Pringle MD [facility] Work Phone: 1([phone]) 833-109106-17-2022 Consult note* Maria De Jesus Pollock MD, PhD - 05/16/2022 9:37 AM EDTAssociated Order(s): IP CONSULT TO NEPHROLOGY - TRANSPLANT (MEDICINE) I saw George Styles at the [facility] on 05/16/2022. Reason for Consultation: [...] where he was given flomax and senthome. Morrill better but noticed more pain and decreased [...] states he went to his local ED [place] and he was put on Flomax and he did improve. Pt states last night he was unable to void with severe right sided abd pain. Pt states nausea and no vomiting or fevers. Pt states he went back to [place] ED at 0100 and they placed a [...] 04/12/2020); and kidney transplant w/o [place] nephr ectomy (N/A, 04/12/2020). Medications He has [...] with portosystemic collateralization via the [place] left renal vein in the setting of [...] and adrenals are stable. The [place] kidneys are progressively atrophic bilaterally compared to [...] are no longer present. The [place] distal right ureter is decompressed beyond this [...] history for renal graft and [place] right urinary drainage, as a discrete ureteroneocystostomy is not identified, and the graft may be draining via a ureteroureterostomy. Urology consultation recommended. 3. The [place] kidneys are bilaterally atrophic, with right renal sinus calcifications consistent with nonobstructing right [place] renal calculi up to 6 mm. Normal [...] PGY-3, Department of Urologic Surgery Pager #: [phone] Associated attestation - Ryan Yepez MD - [...] --may continue flomax documented in this encounter[facility]06-[facility]-2022 Note* Plan of Care - aKllie Lorenzana RN - 05/16/2022 4:43 AM EDT [...] supported Trust Relationship/Rapport: care explained choices provided [facility]06-17-2022 Note* Nursing Notes - Kallie Lorenzana RN - 05/16/2022 2:29 AM EDT On admission to [facility], a dual RN initial assessment of skin condition was performed by Kallie Lorenzana RN and Sheri Arguelles RN. Skin Assessment: WDL Jose Score: 20 LDA Added:N Kallie Lorenzana RN [facility]06-16-2022 Emergency department Note* Karlie Bean RN - 05/15/2022 11:14 PM EDT Report given to Kallie RN at [facility]06-16-2022 Emergency department Note* Karlie Bean RN - 05/15/2022 11:14 PM EDT Report given to Kallie RN at [facility] * Nisha Gardiner RN - 05/15/2022 [...] diagnosed Thursday and was sent home with [facility]. He went back to that ED and [...] residentand agree with the plan of care. Gina Villatoro MD 05/15/222003 * Nisha Gardiner RN [...] DAY SURGERY MAIN OR KIDNEY TRANSPLANT W/O YSLETA DEL SUR NEPHRECTOMY N/A 04/12/2020 Laterality: N/A; Surgeon: LU Palma; Location: [facility] SAME DAY SURGERY MAIN OR OTHER SURGICAL [...] 05/15/2022 2:15 PM EDT Pt arrives from [facility] with kidney stones. Pt states he had right lower abd pain and right flank pain with blood in his urine since Thursday. Pt states he went to his local ED [place] andhe was put on Flomax and he did improve. Pt states last night he was unable to void with severe right sided abd pain. Pt states nausea and no vomiting or fevers. Pt states he went back to [place] EDat 0100 and they placed a matias and CT scan completed and multiple kidney stones noted. [facility]/2020. documented in this [facility] History and physical note* Evan Bennett MD - 05/15/2022 9:18 PM EDT Internal Medicine Admission History & Physical Patient: George Styles, 1970, [id number] Physician: Evan Bennett MD, PGY1, Pager #[phone], GM 4 service Date of face to [...] DAY SURGERY MAIN OR KIDNEY TRANSPLANT W/O YSLETA DEL SUR NEPHRECTOMY N/A 04/12/2020 Laterality: N/A; Surgeon: LU [...] erythema: Skin: No jaundice or rash Neuro: curtain fitter 3-7, 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 Strength grossly [...] dilation of the calyces may represent narrowing/partial [id number] ofthe ureter and mild hydronephrosis or sequela [...] MD Division of Hospital Medicine [id number] [facility] Work Phone: [phone] 226-361406-16-2022 History and physical note* Evan Bennett MD - 05/15/2022 9:18 PM EDT Internal Medicine Admission History & Physical Patient: George Styles, 1970, [id number] Physician: Evan Bennett MD, PGY1, Pager #[phone], GM 4 service Date of face to [...] DAY SURGERY MAIN OR KIDNEY TRANSPLANT W/O YSLETA DEL SUR NEPHRECTOMY N/A 04/12/2020 Laterality: N/A; Surgeon: LU [...] erythema: Skin: No jaundice or rash Neuro: curtain fitter 3-7, 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 Strength grossly [...] dilation of the calyces may represent narrowing/partial lgw7viclanx ofthe ureter and mild hydronephrosis or sequela ofrecent kidney transplat. 3. Unremarkable boweL Electronically enthentiental by. MÓNICA HAYESBECKIE Date: 2020-06-14 12:25 Impression/Plan: George Styles is [...] Hospital Medicine [id number] documented in this encounterOSU [facility]06-16-2022 Emergency department Note* Nisha Gardiner RN - 05/15/2022 7:02 PM EDT Bladder scan with Dr Villatoro at bedside, 14ml noted [facility] Consult note* Stephanie Tomas MD - 05/15/2022 [...] states he went to his local ED [place] and he was put on Flomax and he did improve. Pt states last night he was unable to void with severe right sided abd pain. Pt states nausea and no vomiting or fevers. Pt states he went back to [place] ED at 0100 and they placed a [...] 04/12/2020); and kidney transplant w/o [place] nephr ectomy (N/A, 04/12/2020). Medications He has [...] with portosystemic collateralization via the [place] left renal vein in the setting of [...] and adrenals are stable. The [place] kidneys are progressively atrophic bilaterally compared to [...] are no longer present. The [place] distal right ureter is decompressed beyond this [...] history for renal graft and [place] right urinary drainage, as a discrete ureteroneocystostomy is not identified, and the graft may be draining via a ureteroureterostomy. Urology consultation recommended. 3. The [place] kidneys are bilaterally atrophic, with right renal sinus calcifications consistent with nonobstructing right [place] renal calculi up to 6 mm. Normal [...] PGY-3, Department of Urologic Surgery Pager #: [phone] Associated attestation - Ryan Yepez MD - [...] future before surgical intervention --[facility] Work Phone: [phone] Emergency department Note* Nisha Gardiner RN - 05/15/2022 6:[address] Schneider concerning no urine output via matias catheter. [facility]06-16-2022 Physician Emergency department Note* Gian Villatoro [...] plan of care. Gian Villatoro MD 05/15/222003 [facility] Work Phone: [phone] Emergency department Note* Nisha Gardiner RN - 05/15/2022 5:[address] Schneider made aware of only 30 ml urine via matias since arrival to room. [facility]06[facility]16-2022 Physician Emergency department Note* Matt Schneider [...] N/A; Surgeon: LU Palma; Location: [facility] SAME DAY SURGERY MAIN OR KIDNEY TRANSPLANT W/O YSLETA DEL SUR NEPHRECTOMY N/A 04/12/2020 Laterality: N/A; Surgeon: LU Palma; Location: [facility] SAME DAY SURGERY MAIN OR [...] any incorrections. Matt Schneider MD Resident 05/15/222030 [facility] Work Phone: [phone] Emergency department Note* Lynn Rutherford RN - 05/15/2022 2:15 PM EDT Pt arrives from [facility] with kidney stones. Pt states he had right lower abd pain and right flank pain with blood in his urine since Thursday. Pt states he went to his local ED [place] andhe was put on Flomax and he did improve. Pt states last night he was unable to void with severe right sided abd pain. Pt states nausea and no vomiting or fevers. Pt states he went back to [place] EDat 0100 and they placed a matias and CT scan completed and multiple kidney stones noted. [facility] and kidney [facility]/2020. [facility]04-15-2022 History of Present illness Narrative* Miranda [...] Required: No Mailing/Pickup Date: 03/17/2022 Shipping Address: [address] [place] [address] [address] Contact Info: Specialty (Quentin) [phone] Jakob [phone] [facility] [phone] Raheem [phone] Bedside Delivery ([facility]) [phone] documented in this encounterWV[facility]07-16-2021 History of Present illness Narrative* Angel [...] 05/16/22 Goal Progress: Satisfactory Contact Info: Specialty (Quentin) [phone] [facility] [phone] [facility] [phone] [facility] [phone] Bedside Delivery ([facility]) [phone] * Mallika Henderson - 06/14/2021 11:57 AM [...] Home Signature Required: Yes Shipping Address: [address] [place], [place] [id number] Contact Info: Specialty (Quentin) [phone] Jakob [phone] [facility] [phone] [facility] [phone] Bedside Delivery ([facility]) [phone] documented in this encounterWVUMedicine [facility] HospitalEvaluation + Plan note Future Appointments Appointment Date:11/22/2024 09:00:00 AM Scheduled Provider:JONATHAN Almodovar APRN, [place] X Location:[facility] Appointment Type:URO Office Visit [facility] evaluation + Plan note Future Appointments Appointment Date:03/09/2025 10:20:00 AM Scheduled Provider:JONATHAN Almodovar APRN, [place] X Location:[facility] Appointment Type:URO Office Visit [facility] Evaluation note* Diagnosis FAYE (acute kidney injury)- Primary Acute kidney failure, unspecified Hydronephrosis due to obstruction of ureteral orifice Hydronephrosis due to obstruction of ureteral orifice FAYE (acute kidney injury) Acute kidney failure, unspecified [facility]* Diagnosis Follow-up exam- Primary Unspecified follow-up examination documented in this encounter [facility]* Diagnosis Immunosuppressed status- Primary Unspecified disorder of immune mechanism Kidney replaced by transplant Liver replaced by transplant Abnormal blood chemistry Other abnormal blood chemistry High risk medication use Encounter for long-term (current) use of other medications Aftercare following organ transplant Liver transplant recipient documented in [facility] encounter [facility]* Diagnosis Attention to nephrostomy- Primary [facility] in this encounter [facility]* Diagnosis Other hydronephrosis- Primary [facility] in this [facility]* Diagnosis FAYE (acute kidney injury) Acute kidney failure, unspecified [facility] Diagnosis Other hydronephrosis- Primary -donor kidney transplant recipient Kidney replaced by transplant documented in this encounter [facility]* Diagnosis Other hydronephrosis documented in this encounter [facility]* Diagnosis 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) Encounter for screening for malignant neoplasm of prostate Special screening for malignant neoplasm of prostate documented in this encounter [facility]* Diagnosis Abnormal blood chemistry- Primary Other abnormal blood chemistry Liver transplant recipient Kidney replaced by transplant Immunosuppressed status Unspecified disorder of immune mechanism Aftercare following organ transplant documented [facility]* Diagnosis Kidney replaced by transplant- Primary [facility] in [facility]* Diagnosis Immunosuppressed status- Primary Unspecified disorder of immune mechanism Kidney replaced by transplant Aftercare following organ transplant High risk medication use Encounter for long-term (current) use of other medications Other general symptoms and signs Abnormal blood chemistry Other abnormal blood chemistry Hypertension secondary to other renal disorders documented in this encounter [facility]* Diagnosis Histoplasmosis- Primary Histoplasmosis, unspecified without [...] Fever Fever, unspecified documented in this encounter [facility]* Diagnosis Bilateral lower extremity edema- Primary 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) Atherosclerosis 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) Atherosclerosis of aorta Obesity (BMI 30-39.9) DARLENE (obstructive sleep apnea) Obstructive sleep apnea (adult) (pediatric) Tremor Abnormal involuntary movements Immunocompromised (CMS/HCC) Unspecified immunity deficiency Primary hypertension (CMS/HCC) Unspecified essential hypertension Shortness of breath documented in this encounter [facility] HealthcareEvaluation note* Diagnosis Pleural effusion on [...] pre-operative examination [facility]* Diagnosis Heart failure, diastolic, acute- Primary Acute diastolic heart failure [facility]* Diagnosis Liver lesion- Primary Other specified disorders of liver Liver transplant recipient High risk medication use Encounter for long-term (current) use of other medications Therapeutic drug monitoring Encounter for therapeutic drug monitoring Immunocompromised Unspecified immunity deficiency [facility]* Diagnosis Kidney replaced by transplant- Primary [facility] in this encounter [facility]* Diagnosis DARLENE (obstructive sleep apnea)- Primary Obstructive sleep apnea (adult) (pediatric) Generalized anxiety disorder ([facility]) Generalized anxiety disorder Class 1 obesity due to excess calories with body mass index (BMI) of 31.0 to 31.9 in adult, unspecified whether serious comorbidity present Kidney stones Calculus of kidney Tremor Abnormal involuntary movements Immunocompromised ([facility]) Unspecified immunity deficiency S/P liver transplant ([facility]) Bilateral lower extremity edema- Primary 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) Atherosclerosis 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) Atherosclerosis of aorta Obesity (BMI 30-39.9) DARLENE (obstructive sleep apnea) Obstructive sleep apnea (adult) (pediatric) Tremor Abnormal involuntary movements Immunocompromised ([facility]) Unspecified immunity deficiency Primary hypertension ([facility]/HCC) Unspecified essential hypertension Shortness of breath Encounter for subsequent annual wellness visit (AWV) in Medicare patient- Primary Liver transplant status (Z94.4) DARLENE (obstructive sleep apnea) Obstructive sleep apnea (adult) (pediatric) Primary hypertension ([facility]/HCC) Unspecified essential hypertension Complication of arteriovenous dialysis fistula, subsequent encounter Bilateral lower extremity edema Histoplasmosis S/P liver transplant (CMS/HCC) Immunocompromised ([facility]/HCC) Unspecified immunity deficiency Heart failure, diastolic, acute ([facility]/HCC) Acute diastolic heart failure Organ transplant Unspecified [...] of urinary stream documented in this encounter [facility] HealthcareEvaluation note* Diagnosis DARLENE (obstructive sleep [...] of urinary stream documented in this encounter [facility] HealthcareEvaluation note* Diagnosis Primary hypertension (CMS/HCC) Unspecified essential hypertension documented in this encounter [facility] HealthcareEvaluation note* Diagnosis DARLENE (obstructive sleep [...] kidney Other polyneuropathy documented in this encounter [facility]* Diagnosis DARLENE (obstructive sleep apnea)- [...] replaced by transplant documented in this encounter [facility] HealthcareEvaluation note* Diagnosis DARLENE (obstructive sleep [...] Kidney stones Calculus of kidney Primary hypertension (CMS/[facility]) Unspecified essential hypertension documented in this encounter [facility] HealthcareEvaluation note* Diagnosis DARLENE (obstructive sleep apnea)- Primary Obstructive sleep apnea (adult) (pediatric) Generalized anxiety disorder (CMS/HCC) Generalized anxiety disorder Class 1 obesity due to excess calories with body mass index (BMI) of 31.0 to 31.9 in adult, unspecified whether serious comorbidity present Kidney stones Calculus of kidney Tremor Abnormal involuntary movements Immunocompromised (CMS/HCC) Unspecified immunity deficiency S/P liver transplant ([facility]) Bilateral lower extremity edema- Primary 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) Atherosclerosis 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) Atherosclerosis of aorta Obesity (BMI 30-39.9) DARLENE (obstructive sleep apnea) Obstructive sleep apnea (adult) (pediatric) Tremor Abnormal involuntary movements Immunocompromised (CMS/HCC) Unspecified immunity deficiency Primary hypertension ([facility]/HCC) Unspecified essential hypertension Shortness of breath Encounter [...] acid level- Primary documented in this encounter [facility] HealthcareEvaluation note* Diagnosis DARLENE (obstructive sleep [...] Liver transplant status documented in this encounter [facility] note* Diagnosis DARLENE (obstructive sleep apnea)- Primary Obstructive sleep apnea (adult) (pediatric) Generalized anxiety disorder Generalized anxiety disorder Class 1 obesity due to excess calories with body mass index (BMI) of 31.0 to 31.9 in adult, unspecified whether serious comorbidity present Kidney stones Calculus of kidney Tremor Abnormal involuntary movements Immunocompromised (HCC) Unspecified immunity deficiency S/P liver transplant (HCC) Bilateral lower extremity edema- Primary 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) Atherosclerosis 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) Atherosclerosis of aorta Obesity (BMI 30-39.9) DARLENE (obstructive sleep apnea) Obstructive sleep apnea (adult) (pediatric) Tremor Abnormal involuntary movements Immunocompromised (HCC) Unspecified immunity deficiency Primary hypertension Unspecified essential hypertension Shortness of breath Encounter for subsequent annual wellness visit (AWV) in Medicare patient- Primary Liver transplant status (Z94.4) DARLENE (obstructive sleep apnea) Obstructive sleep apnea (adult) (pediatric) Primary hypertension Unspecified essential hypertension Complication of arteriovenous dialysis fistula, subsequent encounter Bilateral lower extremity edema Histoplasmosis S/P liver transplant (HCC) Immunocompromised (HCC) Unspecified immunity deficiency Heart failure, diastolic, acute (HCC) Acute diastolic heart failure Organ transplant Unspecified organ or tissue replaced by transplant Primary hypertension- Primary Unspecified essential hypertension Left carotid bruit Immunocompromised (HCC) Unspecified immunity deficiency Histoplasmosis Organ transplant Unspecified organ or tissue replaced by transplant Overweight (BMI 25.0-29.9) Overweight Primary hypertension- Primary Unspecified essential hypertension Portal hypertension (HCC) Portal hypertension Alcoholic cirrhosis of liver without ascites (HCC) Obesity (BMI 30-39.9) Gastroesophageal reflux disease, unspecified whether esophagitis present Immunocompromised (HCC) Unspecified immunity deficiency Organ transplant Unspecified organ or tissue replaced by transplant Tremor Abnormal involuntary movements S/P liver transplant (HCC) Blood glucose elevated Other abnormal glucose Left carotid bruit Mixed hyperlipidemia Mixed hyperlipidemia Prostate cancer screening Special screening for malignant neoplasm of prostate Dysuria Abdominal pain, generalized DARLENE (obstructive sleep apnea) Obstructive sleep apnea (adult) (pediatric) Bilateral lower extremity edema Other constipation Decreased urine stream Slowing of urinary stream Primary hypertension- Primary Unspecified essential hypertension Immunodeficiency, unspecified (HCC) Liver transplant status (HCC) Portal hypertension (HCC) Portal hypertension Obesity (BMI 30-39.9) Other osteoporosis without current pathological fracture Kidney stones Calculus of kidney Primary hypertension- Primary Unspecified essential hypertension DARLENE (obstructive sleep apnea) Obstructive sleep apnea (adult) (pediatric) Bilateral lower extremity edema Other osteoporosis without current pathological fracture Obesity (BMI 30-39.9) Immunodeficiency, unspecified (HCC) History of kidney transplant (HCC) Kidney replaced by transplant History of liver transplant (HCC) Liver replaced by transplant Gastroesophageal reflux disease, unspecified whether esophagitis present Other polyneuropathy DARLENE (obstructive sleep apnea)- Primary Obstructive sleep apnea (adult) (pediatric) Other polyneuropathy Arteriosclerosis of coronary artery Primary hypertension Unspecified essential hypertension Gastroesophageal reflux disease, unspecified whether esophagitis present Other osteoporosis without current pathological fracture Obesity (BMI 30-39.9) Encounter for subsequent annual wellness visit (AWV) in Medicare patient documented in this encounter [facility]* Diagnosis DARLENE (obstructive sleep apnea)- Primary Obstructive sleep apnea (adult) (pediatric) Generalized anxiety disorder Generalized anxiety disorder Class 1 obesity due to excess calories with body mass index (BMI) of 31.0 to 31.9 in adult, unspecified whether serious comorbidity present Kidney stones Calculus of kidney Tremor Abnormal involuntary movements Immunocompromised (HCC) Unspecified immunity deficiency S/P liver transplant (HCC) Bilateral lower extremity edema- Primary 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) Atherosclerosis 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) Atherosclerosis of aorta Obesity (BMI 30-39.9) DARLENE (obstructive sleep apnea) Obstructive sleep apnea (adult) (pediatric) Tremor Abnormal involuntary movements Immunocompromised (HCC) Unspecified immunity deficiency Primary hypertension Unspecified essential hypertension Shortness of breath Encounter for subsequent annual wellness visit (AWV) in Medicare patient- Primary Liver transplant status (Z94.4) DARLENE (obstructive sleep apnea) Obstructive sleep apnea (adult) (pediatric) Primary hypertension Unspecified essential hypertension Complication of arteriovenous dialysis fistula, subsequent encounter Bilateral lower extremity edema Histoplasmosis S/P liver transplant (HCC) Immunocompromised (HCC) Unspecified immunity deficiency Heart failure, diastolic, acute (HCC) Acute diastolic heart failure Organ transplant Unspecified organ or tissue replaced by transplant Primary hypertension- Primary Unspecified essential hypertension Left carotid bruit Immunocompromised (HCC) Unspecified immunity deficiency Histoplasmosis Organ transplant Unspecified organ or tissue replaced by transplant Overweight (BMI 25.0-29.9) Overweight Primary hypertension- Primary Unspecified essential hypertension Portal hypertension (HCC) Portal hypertension Alcoholic cirrhosis of liver without ascites (HCC) Obesity (BMI 30-39.9) Gastroesophageal reflux disease, unspecified whether esophagitis present Immunocompromised (HCC) Unspecified immunity deficiency Organ transplant Unspecified organ or tissue replaced by transplant Tremor Abnormal involuntary movements S/P liver transplant (HCC) Blood glucose elevated Other abnormal glucose Left carotid bruit Mixed hyperlipidemia Mixed hyperlipidemia Prostate cancer screening Special screening for malignant neoplasm of prostate Dysuria Abdominal pain, generalized DARLENE (obstructive sleep apnea) Obstructive sleep apnea (adult) (pediatric) Bilateral lower extremity edema Other constipation Decreased urine stream Slowing of urinary stream Primary hypertension- Primary Unspecified essential hypertension Immunodeficiency, unspecified (HCC) Liver transplant status (HCC) Portal hypertension (HCC) Portal hypertension Obesity (BMI 30-39.9) Other osteoporosis without current pathological fracture Kidney stones Calculus of kidney Primary hypertension- Primary Unspecified essential hypertension DARLENE (obstructive sleep apnea) Obstructive sleep apnea (adult) (pediatric) Bilateral lower extremity edema Other osteoporosis without current pathological fracture Obesity (BMI 30-39.9) Immunodeficiency, unspecified (HCC) History of kidney transplant (HCC) Kidney replaced by transplant History of liver transplant (HCC) Liver replaced by transplant Gastroesophageal reflux disease, unspecified whether esophagitis present Other polyneuropathy DARLENE (obstructive sleep apnea)- Primary Obstructive sleep apnea (adult) (pediatric) Other polyneuropathy Arteriosclerosis of coronary artery Primary hypertension Unspecified essential hypertension Gastroesophageal reflux disease, unspecified whether esophagitis present Other osteoporosis without current pathological fracture Obesity (BMI 30-39.9) Encounter for subsequent annual wellness visit (AWV) in Medicare patient Other polyneuropathy documented in this encounter [facility] HealthcareEvaluation note* Diagnosis Onset Date Resolution Status Admit Date Essential hypertension acute Se ptember 2024 8:20am RAMOS (generalized anxiety disorder) acute August 10, 2025 8:20am GERD with apnea without esophagitis acute August 10, 2025 8:20am Morbid obesity due to excess calories acute August 10, 2025 8:20am DARLENE (obstructive sleep apnea) acute August 10, 2025 8:20am Peripheral neuropathy [facility] Work Phone: Evaluation note* Diagnosis Kidney replaced by transplant- Primary [facility] N[facility] No data available for this section [facility] Discharge instructions Additional [...] NOT operate machinery such as power tools, [employer] mowers, [employer] blowers, sewing machines, etc. for 24 hours. [...] times daily if needed. - Office number [phone]. [facility] Work Phone: Progress note No data available for this section [facility] Frank reason for referral (narrative)* Consultation (Routine) - New Request Specialty Diagnoses / Procedures Referred By Contac t Referred To Contact Interventional Radiology Diagnoses Hydronephrosis due to obstruction of ureteral orifice Daya Saldana MD [address] [place] [address] Referral ID Status Reason Start Date Expiration Date V isits Requested Visits Authorized [id number] New Request 05/18/2022 06/12/2023 1 1 * Radiology (Emergency) - New Request Specialty Diagnoses / Procedures Referred By Contac t Referred To Contact Procedures US RENAL TRANSPLANT SCAN Daya Saldana MD [address] [place] [address] Referral ID Status Reason Start Date Expiration Date V isits Requested Visits Authorized [id number] New Request 05/16/2022 06/10/2023 1 1 * Consultation (Routine) - New Request Specialty Diagnoses / Procedures Referred By Contac t Referred To Contact Urology Diagnoses FAYE (acute kidney injury) Ryan Yepez MD [address] [place] [address] [address] [place] [address] Referral ID Status Reason Start Date Expiration Date V isits Requested Visits Authorized [id number] New Request 05/16/2022 06/10/2023 1 1 * MRI/CAT Scan (Routine) - New Request Specialty Diagnoses / Procedures Referred By Contac t Referred To Contact Diagnoses FAYE (acute kidney injury) Procedures CT ABDOMEN/PELVIS WITHOUT CONTRAST CHG CT SCAN,ABDOMENT AND PELVIS,W/O CONTRAST Ryan Yepez MD [address] [facility] [address] [place] [address] Referral ID Status Reason Start Date Expiration Date V isits Requested Visits Authorized [id number] New Request 05/16/2022 06/10/2023 1 1 * (Routine) - Pending Review Specialty Diagnoses / Procedures Referred By Contac t Referred To Contact Procedures PLATELET MONITORING PER PROTOCOL Daya Saldana MD [address] [place] [address] Referral ID Status Reason Start Date Expiration Date V isits Requested Visits Authorized [id number] Pending Review 05/15/2022 06/09/2023 1 1 * (Routine) - Pending Review Specialty Diagnoses / Procedures Referred By Contac t Referred To Contact Procedures DVT/VTE RISK ASSESSMENT Daya Saldana MD [address] [place] [address] Referral ID Status Reason Start Date Expiration Date V isits Requested Visits Authorized [id number] Pending Review 05/15/2022 06/09/2023 1 1 * (Routine) Specialty Diagnoses / Procedures Referred By Contac t Referred To Contact Evan Bennett MD [address] [place] [address] Referral ID Status Reason Start Date Expiration Date Visits Re quested Visits Authorized * (Routine) Specialty Diagnoses / Procedures Referred By Contac t Referred To Contact Evan Bennett MD [address] [place] [id number] Referral ID Status Reason Start Date Expiration Date Visits Re quested Visits Authorized [facility] for referral (narrative)* Consultation (Routine) - New Request Specialty Diagnoses / Procedures Referred By Contac t Referred To Contact Sleep Medicine Diagnoses Reese Conroy MD [address] [place] [address] Referral ID Status Reason Start Date Expiration Date V isits Requested Visits Authorized [id number] New Request 09/10/2023 10/04/2024 1 1 * MRI/CAT Scan (Routine) - New Request Specialty Diagnoses / Procedures Referred By Contac t Referred To Contact Diagnoses Histoplasmosis Procedures CT CHEST WITHOUT CONTRAST CHG DIAGNOSTIC COMPUTED TOMOGRAPHY THORAX W/O JAZMINERSReese Stewart MD [address] [place] [address] Referral ID Status Reason Start Date Expiration Date V isits Requested Visits Authorized [id number] New Request 09/10/2023 10/04/2024 1 1 * Radiology (Routine) - New Request Specialty Diagnoses / Procedures Referred By Contac t Referred To Contact Procedures US RENAL TRANSPLANT SCAN Steve Munoz MBBS [address] [place] [address] Referral ID Status Reason Start Date Expiration Date V isits Requested Visits Authorized [id number] New Request 08/29/2023 09/22/2024 1 1 * (Routine) - New Request Specialty Diagnoses / Procedures Referred By Contac t Referred To Contact Procedures PLATELET MONITORING PER PROTOCOL Steve Munoz MBBS [address] [place] [address] Referral ID Status Reason Start Date Expiration Date V isits Requested Visits Authorized [id number] New Request 08/28/2023 09/21/2024 1 1 * (Routine) - New Request Specialty Diagnoses / Procedures Referred By Contac t Referred To Contact Procedures DVT/VTE RISK ASSESSMENT Steve Munoz MBBS [address] [place] [address] Referral ID Status Reason Start Date Expiration Date V isits Requested Visits Authorized [id number] New Request 08/28/2023 09/21/2024 1 1 [facility] for referral (narrative)* Consultation (Routine) - Pending Review Specialty Diagnoses / Procedures Referred By Contac t Referred To Contact Urology Diagnoses Decreased urine stream Procedures GA OFFICE/OUTPATIENT NEW HIGH MDM 60 MINUTES Zuyl Bruno NP [address] [place] [address] Trace Gannon MD [address] [place] [address] Referral ID Status Reason Start Date Expiration Date Visits Requested Visits Authorized [id number] Pending Review Specialty Services Required 08/23/2024 02/19/2025 1 1 * Consultation (Routine) - Pending Review Specialty Diagnoses / Procedures Referred By Contac t Referred To Contact Gastroenterology Diagnoses Gastroesophageal reflux disease, unspecified whether esophagitis present Abdominal pain, generalized Other constipation Procedures GA OFFICE/OUTPATIENT NEW HIGH MDM 60 MINUTES Zuly Bruno NP [address] [place] [address] Alaina Mclaughlin DO [address] [place] [address] Referral ID Status Reason Start Date Expiration Date Visits Requested Visits Authorized [id number] Pending Review Specialty Services Required 08/23/2024 02/19/2025 1 1 * (Routine) - Authorized Specialty Diagnoses / Procedures Referred By Contac t Referred To Contact Radiology Diagnoses Left carotid bruit Mixed hyperlipidemia (CMS/HCC) Procedures Vascular US carotid artery duplex bilateral Zuly Bruno NP [address] [place] [address] Referral ID Status Reason Start Date Expiration Date V isits Requested Visits Authorized [id number] Authorized 08/23/2024 02/19/2025 1 1 PINO Hassan for referral (narrative)No reason for referral information [facility] Phone: Instructions * Patient Instructions - Christin Elizabeth APRN-PROTECTIVE SIGNAL SUPERINTENDENT - 10/19/2018 9:21 AM EST You should take an extra dose of the lactulose as needed so that you are having 3-4 bowel movementsdaily. You should start the chemical dependency counseling as soon as possible. If you have questions, call the transplant social media executive Melania Pierson. in this encounter* Patient Instructions - Sophie Cary, SAMI - 10/12/2018 11:09 AM EST You have been seen in the pre-transplant evaluation clinic by Dr. Restrepo and Sophie Cary. Sophie Cary is your pre-background check coordinator she can be reached at [phone] at any time for questions during the pre-transplant process. Your evaluation is complete pendin. Abdominal ultrasound. 2. 6 minute walk test. 3. Cardiology evaluation. Additionally, your glaze grinder will recommend testing to screen for coronary artery disease. This will be scheduled for you after your cardiology visit. 4. Your coordinator will be requesting record from your last dental visit, colonoscopy and EGD. 5. Please work to complete social work recommendations. Your social media executive will be contacting you to follow up on your progress. 6. You have also been referred for a kidney transplant. An appointment will be scheduled for you sari evaluated in the kidney transplant clinic after you have satisfied requirements dictated by [employer] company. Once your testing is complete, we [...] ___ Other Name MRN * Christin Elizabeth, 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 - 10/19/2018 9:00 AM EST Formatting of this note may be different from the original. History of Present Illness: Chief Complaint Patient presents with Follow-up Cirrhosis George Styles is a 48 y.o. male who presents to the [facility] today regarding his diagnosis/chief complaint(s) of Cirrhosis secondary to ETOH, with ESRD follows with Dr. Orr. Currently undergoing evaluation for liver/kidney transplant. Has been seen in transplant clinic for eval. Still undergoing pre testing. Diagnosed in April 2018. Last drink was immediately prior to hospital admission in [place] for ACLF. Hospital course notable for ARF [...] kidney transplant evaluation. Pt was AOx3. Transplant Campaign Marketing Manager role/function was explained and reviewed. The patient was informed that the results of this assessment will be shared with the referring provider and the transplant team. The patient verbalized understanding of this information. The [facility] psychosocial assessment consent form has been explained to patient and has been signed. Pt is completing this evaluation with brother (David) in the Outpatient setting. SWK educated pt on the benefits of completing/filing advanced directives and resources were offered. Pt identifies with ALEVISM jain. Pt confirms being a [place] Citizen. Pt.'s primary language is [place]. Pt confirms the ability to read,write, and understand [place]. Pt denies potential donors. Donor cards [...] has valid license, does not regularly drive (PROTECTIVE SIGNAL SUPERINTENDENT recommends that he not to drive). He [...] related disease etoh cirrohosis April in [facility] for thirty days. Pt reports learning [...] as well as referred him to pre background check coordinator. Pt and support demonstrated moderate understanding [...] Patient's brother David is a self employed [employer] report developer. Additional support includes his other brother Tyshawn and his Mary live fifteen minutes away. Of note Mary is a group product manager for a [employer] is available to assist parts sales counterperson. He confirms being comfortable asking for help. [...] in 2010, he was employed by the [employer]. He has access to SSDI payment (SSDI starts in November) in regards to financial means pre/ post-transplant. Pt confirms (meeting bills currently, ) being able to meet daily needs. Patient's brother asking for additional information on community resources, food stamps and He[place]. Refer him to pt.'s dialysis center and the [facility]. Hereports access to Medicaid. Pt. denies [...] after a DUI charge [facility] in [place], court ordered treatment in 2001 and in [...] by patient from his primary medical provider- [facility] patient was noted as attending an [...] He was provided with local AOD resources, [facility] AOD informational packet. Pt was referred [...] new visit Date of service: 10/12/2018 -Referring occ therapy asst for today's consult: -Primary Care Provider: Zuly Bruno CC: Chief Complaint Patient presents with Liver Recipient Evaluation History of Present Illness George Styles is a 48 y.o. male who presents to the [facility] liver transplant surgery clinic today for evaluation [...] EST Timed up and go 9.9 seconds Assembler Dc Field Ring Left 52.8 pounds Right 44.9 pounds Waist circ 38.5 inches * Sophie Cary RN - 10/12/2018 10:00 AM EST Formatting of this note may be different from the original. Patient George Styles ([id number]), accompanied by his brother, was seen on [...] any further questions. Sophie GUERINN, RN Liver Appraiser [employer] Etiology: ETOH HCC: No ETOH: Yes Last [...] Yovani Orr MD [address] [address] Status Reason Specialty Diagnoses / Procedures Referred By Contact Referred To Contact New Request Diagnoses Cirrhosis of liver with ascites, unspecified hepatic cirrhosis type Procedures US ABDOMEN RUQ/LIVER/GB Yovani Orr MD [address] [address] Specialty Diagnoses / Procedures Referred By Contac t Referred To Contact Diagnoses FAYE (acute kidney injury) Procedures CT ABDOMEN/PELVIS WITHOUT CONTRAST CHG CT SCAN,ABDOMENT AND PELVIS,W/O CONTRAST Central Scheduling [address] [place] [address] Referral ID Status Reason Start Date Expiration Date V isits Requested Visits Authorized [id number] Pending Review 05/16/2022 06/10/2023 1 1 Specialty Diagnoses / Procedures Referred By Contac t Referred To Contact Diagnoses Other hydronephrosis Procedures FLUORO IMAGING FOR UROLOGY Ryan Yepez MD [address] [facility] [address] [place] [address] Referral ID Status Reason Start Date Expiration Date V isits Requested Visits Authorized [id number] New Request 07/07/2022 08/01/2023 1 1 Specialty Diagnoses / Procedures Referred By Contac t Referred To Contact Procedures DIRECT ADMIT REQUEST Steve Munoz MBBS [address] [place] [address] Referral ID Status Reason Start Date Expiration Date V isits Requested Visits Authorized [id number] New Request 08/28/2023 09/21/2024 1 1 Specialty Diagnoses / Procedures Referred By Contac t Referred To Contact Radiology Diagnoses DARLENE (obstructive sleep apnea) Primary hypertension (CMS/HCC) Bilateral lower extremity edema Shortness of breath Procedures Echocardiogram 2D complete Zuly Bruno, VOICER [address] [place] [address] Referral ID Status Reason Start Date Expiration Date Visits Requested Visits Authorized [id number] Incomplete Perform Procedure 01/06/2024 07/04/2024 1 1 Specialty Diagnoses / Procedures Referred By Contac t Referred To Contact Procedures US IMAGING REGIONAL ANESTHESIA Kehinde Gutierrez MD [address] [place] [address] Referral ID Status Reason Start Date Expiration Date V isits Requested Visits Authorized [id number] New Request 01/22/2024 02/15/2025 1 1 Specialty Diagnoses / Procedures Referred By Contac t Referred To Contact Cardiovascular Medicine Diagnoses Heart failure, diastolic, acute Kelvin Smith MD, MBBS [address] [place] [address] Referral ID Status Reason Start Date Expiration Date V isits Requested Visits Authorized [id number] New Request 01/20/2024 02/13/2025 1 1 Specialty Diagnoses / Procedures Referred By Contac t Referred To Contact Procedures US ABDOMEN LIVER DOPPLER US ABDOMEN LIVER TRANSPLANT DOPPLER Timothy Joseph [facility] [address] [facility] [address] [place] [address] Referral ID Status Reason Start Date Expiration Date V isits Requested Visits Authorized [id number] New Request 01/16/2024 02/09/2025 1 1 Specialty Diagnoses / Procedures Referred By Contac t Referred To Contact Procedures DVT/VTE RISK ASSESSMENT Kelvin Smith MD, MBBS [address] [place] [address] Referral ID Status Reason Start Date Expiration Date V isits Requested Visits Authorized [id number] New Request 01/16/2024 02/09/2025 1 1 Specialty Diagnoses / Procedures Referred By Contac t Referred To Contact Procedures PLATELET MONITORING PER PROTOCOL Kelvin Smith MD, MBBS [address] [place] [address] Referral ID Status Reason Start Date Expiration Date V isits Requested Visits Authorized [id number] New Request 01/16/2024 02/09/2025 1 1 Referral ID Status Reason Start Date Expiration Date V isits Requested Visits Authorized [id number] New Request 01/16/2024 02/09/2025 1 1 Specialty Diagnoses / Procedures Referred By Contac t Referred To Contact Procedures ECG Kelvin Smith MD, MBBS [address] [place] [id number] Referral ID Status Reason Start Date Expiration Date V isits Requested Visits Authorized [id number] New Request 01/16/2024 02/09/2025 1 1 Specialty Diagnoses / Procedures Referred By Contac t Referred To Contact Diagnoses Liver lesion Procedures MRI ABDOMEN WITH AND WITHOUT CONTRAST CHG MRI ABDOMEN W/O & W/CONTRAST MATERIAL Daisha Max, DO [address] [place] [address] [place] [address] Referral ID Status Reason Start Date Expiration Date V isits Requested Visits Authorized [id number] New Request 06/17/2024 07/12/2025 1 1 Advance Directives No Advanced Directives Records FoundDocuments on File Type Date Recorded 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 Advance Directives and Living Will Power of Knitting Machine Mechanic Latest Code Status on File Code [...] Date/ Time Advance Directives No July 1:56am Advance Directive Response Recorded Date/ Time Advance Directives No July 25, 2025 8:08am Summary Purpose Family History No Family History [...] p ain, gerd December 26, 2024 8:35am Chief Complaint Admit Date 3M August 10, 2025 8:20am Reason for Visit Admit Date Essential hypertension August 10 025 8:20am RAMOS (generalized anxiety disorder) Septe mb2024 8:20am GERD with apnea without esophagitis Jul ember 2024 8:20am Morbid obesity due to excess calories Se ptember 2024 8:20am DARLENE (obstructive sleep apnea) August 10, 2025 8:20am Peripheral neuropathy August 10 8:20am Additional Source Comments Reason for Visit (unrecogniz ed section and content) Reason Comments Follow-up Cirrhosis Status Reason Specialty Diagnoses / Procedures Referred By Contact Referred To Contact New Request Diagnoses Cirrhosis of liver with ascites, unspecified hepatic cirrhosis type Procedures US ABDOMEN RUQ/LIVER/GB Yovani Orr MD [address] [address] Status Reason Specialty Diagnoses / Procedures Referre d By Contact Referred To Contact Denied Diagnoses Alcoholic cirrhosis, unspecified whether ascites present Pre-transplant evaluation for liver transplant Procedures MRI ABDOMEN WITH CONTRAST GA MRI, ABDOMEN W/CONTRAST Yovani Orr MD [address] [address] Reason Comments Liver Recipient Evaluation Status Reason Specialty Diagnoses / Procedures Referred By Contact Referred To Contact New Request Transplant / Transplant Surgery Procedures PRE NEW PATIENT Yovani Orr MD [address] [address] Alfredito Restrepo MD [address] [place] [address] Reason Comments Reschedule Reason Comments Outside Medical Records Request Reason Comments Social Work Follow-up Reason Comments Kidney Stone Specialty Diagnoses / Procedures Referred By Contac t Referred To Contact Diagnoses Obstructing kidney stone, s/p kidney transplant 2019 Daya Saldana MD [address] [place] [address] [facility] [address] [place] [address] Referral ID Status Reason Start Date Expiration Date Visits Re quested Visits Authorized [id number] 1 1 Reason Comments Follow-up Reason Comments Kidney Recipient Follow-up Liver Recipient Follow-up Reason Comments Consult Reason Comments New Patient Hospital follow up Specialty Diagnoses / Procedures Referred By Contac t Referred To Contact Urology Diagnoses hosp fu with [address] prior Procedures NEW TO DOC/RET PATIENT Zuly Bruno CNP [address] [place] [address] Ryan Yepez MD [address] [facility] [address] [place] [address] Referral ID Status Reason Start Date Expiration Date Visits Re quested Visits Authorized [id number] Closed 06/27/2022 07/22/2023 1 1 Specialty Diagnoses / Procedures Referred By Contac t Referred To Contact Diagnoses FAYE (acute kidney injury) Procedures CT ABDOMEN/PELVIS WITHOUT CONTRAST CHG CT SCAN,ABDOMENT AND PELVIS,W/O CONTRAST Central Scheduling [address] [place] [address] Referral ID Status Reason Start Date Expiration Date V isits Requested Visits Authorized [id number] Pending Review 05/16/2022 06/10/2023 1 1 Reason Comments Follow-up Specialty Diagnoses / Procedures Referred By Contac t Referred To Contact Urology Diagnoses 1 week fu post NT clamp Procedures RETURN PATIENT Zuly Bruno CNP [address] [place] [address] Ryan Yepez MD [address] [facility] [address] [place] [id number] Referral ID Status Reason Start Date Expiration Date Visits Requested Visits Authorized [id number] Authorized - 07/07/2022 08/01/2023 2 2 Specialty Diagnoses / Procedures Referred By Contac t Referred To Contact Diagnoses Other hydronephrosis Procedures [facility] Ryan Yepez MD [address] [facility] [address] [place] [address] Referral ID Status Reason Start Date Expiration Date V isits Requested Visits Authorized [id number] New Request 07/07/2022 08/01/2023 1 1 Specialty Diagnoses / Procedures Referred By Contac t Referred To Contact Urology Diagnoses 1 week fu post NT clamp Procedures RETURN PATIENT Zuly Bruno, PROTECTIVE SIGNAL SUPERINTENDENT [address] [place] [address] Ryan Yepez MD [address] [place] [address] [address] [place] [address] Referral ID Status Reason Start Date Expiration Date Visits Re quested Visits Authorized [id number] Closed 07/07/2022 08/01/2023 2 2 Reason Comments Liver Recipient Follow-up Reason Comments Kidney Recipient Follow-up Reason Comments Kidney Recipient Follow-up Specialty Diagnoses / Procedures Referred By Contac t Referred To Contact Diagnoses Kidney replaced by transplant Steve Munoz MBBS [address] [place] [address] [facility] [address] [place] [address] Referral ID Status Reason Start Date Expiration Date Visits Re quested Visits Authorized [id number] 1 1 Specialty Diagnoses / Procedures Referred By Contac t Referred To Contact Diagnoses Pleural effusion on right PNEUMONIA- HX LIVER AND KIDNEY TRANSPLANT Reese Sage MD [address] [place] [address] [facility] [address] [place] [address] Referral ID Status Reason Start Date Expiration Date Visits Re quested Visits Authorized [id number] 1 1 Reason Comments New Patient Specialty Diagnoses / Procedures Referred By Deni edwards Referred To Contact Cardiovascular Medicine Diagnoses Heart failure, diastolic, acute Kelvin Smith MD, MBBS [address] 1[address] [place] [address] Referral ID Status Reason Start Date Expiration Date Visits Requested Visits Authorized [id number] Authorized - 01/20/2024 02/13/2025 5 5 Reason [...] fracture Liver transplant status Organ transplant Procedures GA OFFICE/OUTPATIENT NEW HIGH MDM 60 MINUTES Zuly Bruno, BA [address] [place] [address] Phone: tel: fax: Tony Hernandez MD [address] [facility] [address] [place] [address] Phone: tel: fax: Referral ID Status Reason Start Date Expiration Date V isits Requested Visits Authorized [id number] Closed Specialty Services Required 01/13/2025 07/12/2025 1 1 Reason Comments Follow-up Osteoporosis LAB Reason Comments Medicare Annual Wellness Visit Initial Reason Onset Date Comments Med Refill 07/12/2025 Reason Onset Date Comments Med Refill 02/20/2025 (unrecognized sect ion and content) No Status Records FoundNo Status Records FoundNo Status Records FoundNo Status Records FoundNo Status Records FoundNo Status Records FoundNo Status Records FoundNo Status Records Found INFORMATION SOURCE (unrecogn ized section and content) DATE CREATED AUTHOR 01/07/2020 [facility] DATE CREATED AUTHOR AUTHOR'S ORGANIZ ATION 01/27/2021 [facility] DATE CREATED AUTHOR AUTHOR'S ORGANIZ ATION 05/11/2023 [facility] DATE CREATED AUTHOR AUTHOR'S ORGANIZ ATION 01/05/2025 [facility] DATE CREATED AUTHOR AUTHOR'S ORGANIZ ATION 03/25/2025 [facility] DATE CREATED AUTHOR AUTHOR'S ORGANIZ ATION 03/26/2025 [facility] DATE CREATED AUTHOR AUTHOR'S ORGANIZ ATION 05/13/2025 [facility] EPIC DATE CREATED AUTHOR AUTHOR'S ORGANIZ ATION 09/02/2025 [facility] Care Teams (unrecognized sec tion and content) Senior Engineering Manager Relationship Specialty Start Date End Date Zuly Bruno CNP PCP - General 07/19/18 Comfort Rivera [facility] [address] [facility] [address] [place] [address] Pharmacist Pharmacist 05/16/20 Angel Carpio RPh,PharmD Pharmacist Pharmacist 05/16/20 Te Leigh RPh,PharmD Pharmacist Pharmacist 01/09/21 Senior Engineering Manager Relationship Specialty Start Date End Date Zuly Bruno CNP PCP - General 07/19/18 Comfort Rivera RP [address] [facility] [address] [place] [address] Pharmacist Pharmacist 05/16/20 Angel Carpio RPh,PharmD Pharmacist Pharmacist 05/16/20 Te Liegh RPh,PharmD Pharmacist Pharmacist 01/09/21 Senior Engineering Manager Relationship Specialty Start Date End Date Zuly Bruno CNP PCP - General 07/19/18 Senior Engineering Manager Relationship Specialty Start Date End Date Zuly Bruno CNP PCP - General 07/19/18 Senior Engineering Manager Relationship Specialty Start Date End Date Zuly Bruno CNP PCP - General 07/19/18 Senior Engineering Manager Relationship Specialty Start Date End Date Zuly Bruno PROTECTIVE SIGNAL SUPERINTENDENT PCP - General 07/19/18 Senior Engineering Manager Relationship Specialty Start Date End Date BrianlatishaZuly tipton CNP PCP - General 07/19/18 Senior Engineering Manager Relationship Specialty Start Date End Date BrianlatishaZuly tiptonROB PCP - General 07/19/18 Senior Engineering Manager Relationship Specialty Start Date End Date BrianlatishaZuly tipton PROTECTIVE SIGNAL SUPERINTENDENT PCP - General 07/19/18 Senior Engineering Manager Relationship Specialty Start Date End Date Zuly Bruno CNP PCP - General 07/19/18 Senior Engineering Manager Relationship Specialty Start Date End Date BrianlatishaZuly tipton PROTECTIVE SIGNAL SUPERINTENDENT PCP - General 07/19/18 Senior Engineering Manager Relationship Specialty Start Date End Date BrianlatishaZuly tipton PROTECTIVE SIGNAL SUPERINTENDENT PCP - General 07/19/18 Senior Engineering Manager Relationship Specialty Start Date End Date LexiesylvesterlatishaZuly tipton PROTECTIVE SIGNAL SUPERINTENDENT PCP - General 07/19/18 Senior Engineering Manager Relationship Specialty Start Date End Date Zuly Bruno CNP PCP - General 07/19/18 Senior Engineering Manager Relationship Specialty Start Date End Date Zuly Bruno CNP PCP - General 07/19/18 Senior Engineering Manager Relationship Specialty Start Date End Date Zuly Bruno CNP PCP - General 07/19/18 Senior Engineering Manager Relationship Specialty Start Date End Date Zuly Bruno CNP PCP - General 07/19/18 Evan White DO [facility] [place] [address] Infectious Disease Infectious Disease 09/09/23 Senior Engineering Manager Relationship Specialty Start Date End Date Zuly Bruno CNP PCP - General 07/19/18 Evan White DO [facility] [place] [address] Infectious Disease Infectious Disease 09/09/23 Senior Engineering Manager Relationship Specialty Start Date End Date Zuly Bruno CNP PCP - General 07/19/18 Evan White DO [facility] [place] [address] Infectious Disease Infectious Disease 09/09/23 Senior Engineering Manager Relationship Specialty Start Date End Date Momo Verdugo MD PCP - General Family Medicine 05/21/23 Senior Engineering Manager Relationship Specialty Start Date End Date Momo Verdugo MD PCP - General Family Medicine 05/21/23 Senior Engineering Manager Relationship Specialty Start Date End Date Momo Verdugo MD PCP - General Family Medicine 05/21/23 Senior Engineering Manager Relationship Specialty Start Date End Date Zuly Bruno CNP PCP - General 07/19/18 Evan White DO [facility] [place] [address] Infectious Disease Infectious Disease 09/09/23 Senior Engineering Manager Relationship Specialty Start Date End Date Zuly Bruno CNP PCP - General 07/19/18 Evan White DO [facility] [place] [address] Infectious Disease Infectious Disease 09/09/23 Senior Engineering Manager Relationship Specialty Start Date End Date Zuly Bruno CNP PCP - General 07/19/18 Evan White DO [facility] [place] [address] Infectious Disease Infectious Disease 09/09/23 Senior Engineering Manager Relationship Specialty Start Date End Date Zuly Bruno ROB PCP - General 07/19/18 Evan White DO [facility] [place] [address] Infectious Disease Infectious Disease 09/09/23 Senior Engineering Manager Relationship Specialty Start Date End Date Zuly Bruno ROB PCP - General 07/19/18 Evan White DO [address] [place] [address] Infectious Disease Infectious Disease 09/09/23 Senior Engineering Manager Relationship Specialty Start Date End Date Zuly Bruno ROB PCP - General 07/19/18 Senior Engineering Manager Relationship Specialty Start Date End Date Zuly Bruno CNP PCP - General 07/19/18 Senior Engineering Manager Relationship Specialty Start Date End Date Zuly Bruno CNP PCP - General 07/19/18 Senior Engineering Manager Relationship Specialty Start Date End Date Zuly Bruno CNP PCP - General 07/19/18 Senior Engineering Manager Relationship Specialty Start Date End Date Zuly Bruno CNP PCP - General 07/19/18 Senior Engineering Manager Relationship Specialty Start Date End Date AichZuly dorantes CNP PCP - General 07/19/18 Senior Engineering Manager Relationship Specialty Start Date End Date Lexiesylvesterjose e ROB Chairez PCP - General 07/19/18 Senior Engineering Manager Relationship Specialty Start Date End Date Momo Verdugo MD [address] [place] [address] PCP - General Family Medicine 02/11/24 Zuly Bruno NP [address] [place] [address] Nurse Practitioner Family Medicine 02/11/24 Kasandra Thomas DO [address] [place] [address] Referring Physician Neurology 02/17/24 Senior Engineering Manager Relationship Specialty Start Date End Date Momo Verdugo MD [address] [place] [address] PCP - General Family Medicine 02/11/24 Zuly Bruno NP [address] [place] [address] Nurse Practitioner Family Medicine 02/11/24 Kasandra Thomas DO [address] [place] [address] Referring Physician Neurology 02/17/24 Senior Engineering Manager Relationship Specialty Start Date End Date Momo Verdugo MD [address] [place] [address] PCP - General Family Medicine 02/11/24 Zuly Bruno NP [address] [place] [address] Nurse Practitioner Family Medicine 02/11/24 Kasandra Thomas DO [address] [place] [address] Referring Physician Neurology 02/17/24 Senior Engineering Manager Relationship Specialty Start Date End Date Momo Verdugo MD [address] [place] [address] PCP - General Family Medicine 02/11/24 Zuly Bruno NP [address] [place] [address] Nurse Practitioner Family Medicine 02/11/24 Kasandra Thomas DO [address] [place] [address] Referring Physician Neurology 02/17/24 Senior Engineering Manager Relationship Specialty Start Date End Date Momo Verdugo MD [address] [place] [address] PCP - General Family Medicine 02/11/24 Zuly Bruno NP [address] [place] [address] Nurse Practitioner Family Medicine 02/11/24 Kasandra Thomas DO [address] [place] [address] Referring Physician Neurology 02/17/24 Senior Engineering Manager Relationship Specialty Start Date End Date Momo Verdugo MD [address] [place] [address] PCP - General Family Medicine 02/11/24 Zuly Bruno NP [address] [place] [address] Nurse Practitioner Family Medicine 02/11/24 Kasandra Thomas DO [address] [place] [address] Referring Physician Neurology 02/17/24 Senior Engineering Manager Relationship Specialty Start Date End Date Momo Verdugo MD [address] [place] [address] PCP - General Family Medicine 02/11/24 Zuly Bruno NP [address] [place] [address] Nurse Practitioner Family Medicine 02/11/24 Kasandra Thomas DO [address] [place] [address] Referring Physician Neurology 02/17/24 Senior Engineering Manager Relationship Specialty Start Date End Date Momo Verdugo MD [address] [place] [address] PCP - General Family Medicine 02/11/24 Zuly Bruno NP [address] [place] [address] Nurse Practitioner Family Medicine 02/11/24 Kasandra Thomas DO [address] [place] [address] Referring Physician Neurology 02/17/24 Senior Engineering Manager Relationship Specialty Start Date End Date Momo Verdugo MD [address] [place] [address] PCP - General Family Medicine 02/11/24 Zuly Bruno NP [address] [place] [address] Nurse Practitioner Family Medicine 02/11/24 Kasandra Thomas DO [address] [place] [address] Referring Physician Neurology 02/17/24 Senior Engineering Manager Relationship Specialty Start Date End Date Momo Verdugo MD [address] [place] [address] PCP - General Family Medicine 02/11/24 Zuly Bruno, BA [address] [place] [address] Nurse Practitioner Family Medicine 02/11/24 Kasandra Thomas DO [address] [place] [address] Referring Physician Neurology 02/17/24 Senior Engineering Manager Relationship Specialty Start Date End Date Momo Verdugo MD [address] [place] [address] PCP - General Family Medicine 02/11/24 Zuly Bruno NP [address] [place] [address] Nurse Practitioner Family Medicine 02/11/24 Kasandra Thomas DO [address] [place] [address] Referring Physician Neurology 02/17/24 Team Status: Active [...] Other Provider Active Start: December 26, 2024 Senior Engineering Manager Relationship Specialty Start Date End Date Momo Verdugo MD [address] [place] [address] PCP - General Family Medicine 02/11/24 Zuly Bruno NP [address] [place] [address] Nurse Practitioner Family Medicine 02/11/24 Kasandra Thomas DO [address] [place] [address] Referring Physician Neurology 02/17/24 Senior Engineering Manager Relationship Specialty Start Date End Date Momo Verdugo MD [address] [place] [address] PCP - General Family Medicine 02/11/24 Zuly Bruno NP [address] [place] [address] Nurse Practitioner Family Medicine 02/11/24 Kasandra Thomas DO [address] [place], [place] [address] Referring Physician Neurology 02/17/24 Senior Engineering Manager Relationship Specialty Start Date End Date Momo Verdugo MD [address] [place] [address] PCP - General Family Medicine 02/11/24 Zuly Bruno NP [address] [place] [address] Nurse Practitioner Family Medicine 02/11/24 Kasandra Thomas DO [address] [place] [address] Referring Physician Neurology 02/17/24 Senior Engineering Manager Relationship Specialty Start Date End Date Momo Verdugo MD [address] [place] [address] PCP - General Family Medicine 02/11/24 Zuly Bruno NP [address] [place] [address] Nurse Practitioner Family Medicine 02/11/24 Kasandra Thomas DO [address] [place] [address] Referring Physician Neurology 02/17/24 Senior Engineering Manager Relationship Specialty Start Date End Date Momo Verdugo MD [address] [place] [address] PCP - General Family Medicine 02/11/24 Zuly Bruno, BA [address] [place] [address] Nurse Practitioner Family Medicine 02/11/24 Kasandra Thomas DO [address] [place] [address] Referring Physician Neurology 02/17/24 Senior Engineering Manager Relationship Specialty Start Date End Date Momo Verdugo MD [address] [place] [address] PCP - General Family Medicine 02/11/24 Zuly Bruno, BA [address] [place] [address] Nurse Practitioner Family Medicine 02/11/24 Kasandra Thomas DO [address] [place] [address] Referring Physician Neurology 02/17/24 Senior Engineering Manager Relationship Specialty Start Date End Date Momo Verdugo MD [address] [place] [address] PCP - General Family Medicine 02/11/24 Zuly Bruno NP [address] [place] [address] Nurse Practitioner Family Medicine 02/11/24 Kasandra Thomas DO [address] [place] [address] Referring Physician Neurology 02/17/24 Senior Engineering Manager Relationship Specialty Start Date End Date Momo Verdugo MD [address] [place] [address] PCP - General Family Medicine 02/11/24 Momo Verdugo MD [address] [place] [address] PCP - [employer] 12/31/24 Zuly Bruno NP [address] [place] [address] Nurse Practitioner Family [facility] 02/11/24 Kasandra Thomas DO [address] [place], [place] [address] Referring Physician Neurology 02/17/24 Senior Engineering Manager Relationship Specialty Start Date End Date Momo Verdugo MD [address] [place] [address] PCP - General Family Medicine 02/11/24 Momo Verdugo MD [address] [place] [address] PCP - [employer] 12/31/24 Zuly Bruno, BA [address] [place] [address] Nurse Practitioner Family Medicine 02/11/24 Kasandra Thomas DO [address] [place] [address] Referring Physician Neurology 02/17/24 Senior Engineering Manager Relationship Specialty Start Date End Date Momo Verdugo MD [address] [place] [address] PCP - General Family Medicine 02/11/24 Momo Verdugo MD [address] [place] [address] PCP - [employer] 12/31/24 Zuly Bruno, BA [address] [place] [address] Nurse Practitioner Family Medicine 02/11/24 Kasandra Thomas DO [address] [place] [address] Referring Physician Neurology 02/17/24 Senior Engineering Manager Relationship Specialty Start Date End Date Momo Verdugo MD [address] [place] [address] PCP - General Family Medicine 02/11/24 Momo Verdugo MD [address] [place] [address] PCP - [employer] 12/31/24 Zuly Bruno NP [address] [place] [address] Nurse Practitioner Family Medicine 02/11/24 Kasandra Thomas DO [address] [place] [address] Referring Physician Neurology 02/17/24 Senior Engineering Manager Relationship Specialty Start Date End Date Momo Verdugo MD [address] [place] [address] PCP - General Family Medicine 02/11/24 Mmoo Verdugo MD [address] [place] [address] PCP - [employer] 12/31/24 Zuly Bruno NP [address] [place] [address] Nurse Practitioner Family Medicine 02/11/24 Kasandra Thomas DO [address] [place] [address] Referring Physician Neurology 02/17/24 Senior Engineering Manager Relationship Specialty Start Date End Date Zuly Bruno CNP PCP - General 07/19/18 Senior Engineering Manager Relationship Specialty Start Date End Date Momo Verdugo MD [address] [place] [address] PCP - General Family Medicine 02/11/24 Momo Verdugo MD [address] [place] [address] PCP - [employer] 12/31/24 Zuly Bruno, BA [address] [place] [address] Nurse Practitioner Family Medicine 02/11/24 Kasandra Thoams DO [address] [place], [place] [address] Referring Physician Neurology 02/17/24 Senior Engineering Manager Relationship Specialty Start Date End Date Momo Verdugo MD [address] [place] [address] PCP - General Family Medicine 02/11/24 Momo Verudgo MD [address] [place] [address] PCP - [employer] 12/31/24 Zuly Bruno, VOICER [address] [place] [address] Nurse Practitioner Family Medicine 02/11/24 Kasandra Thomas DO [address], [place] [address] Referring Physician Neurology 02/17/24 Senior Engineering Manager Relationship Specialty Start Date End Date Momo Verdugo MD [address] [place] [address] PCP - General Family Medicine 02/11/24 Momo Verdugo MD [address] [place] [address] PCP - [employer] 12/31/24 Zuly Bruno NP [address] [place] [address] Nurse Practitioner Family Medicine 02/11/24 Kasandra Thomas DO [address] [place] [address] Referring Physician Neurology 02/17/24 Team Status: Active Member Role Status Dates JONATHAN Irvin Primary Care Provider Active Team Status: Inactive Member Role Status Dates JONATHAN Irivn Primary Care Provider Active Start: August 10, 2025 End: August 10, 2025 JONATHAN Irvin Attending Provider Active Start: August 10, 2025 End: August 10, 2025 Senior Engineering Manager Relationship Specialty Start Date End Date [...] SAMI)2058 (Given - Provider: Carolyn Isaac, SAMI) 0742 (Given - Provider: Leon Cook, SAMI)1999 [...] symptoms)195 (Given - Provider: Carolyn Isaac, SAMI) 113 (Not Given - Provider: Josey Braun, SAMI - Reason: Patient/family refused)2099 (Not Given - [...] separately. 175 (Given - Provider: Josey Braun, RN) senna (SENOKOT) tablet 8.6 mg 8.6 mg, Oral, DAILY, First dose on Thu05/16/22 at 0900, Until Discontinued 0807 (Given - Provider: Mel Hampton RN) 0806 (Given - Provider: Josey Braun, RN) 0932 (Given - Provider: Leon Cook [...] Gamez MD)1999 (Given - Provider: Carolyn Isaac, RN) 08 (Given - Provider: Josey Braun [...] Insomnia 2221 (Given - Provider: Girish Nunez SAMI) 2205 (Given - Provider: Carolyn Plasencia [...] 0841 (Given - Provider: Terra Heart, RN)1053 (MAR Hold - Provider: Automatic Transfer [...] at 0900, Until Discontinued, On hold since [facility] 01/21/2024 at 0802 until manually unheld [...] 0841 (Given - Provider: Terra Heart RN)1053 ([facility] [place] Hold - Provider: Automatic Transfer - Reason: Transfer to a Procedural area)1414 ([facility] [place] Unhold - Provider: Automatic Transfer) 0920 [...] 0841 (Given - Provider: Terra Heart RN)1053 ([facility] [place] Hold - Provider: Automatic Transfer - Reason: Transfer to a Procedural area)1414 ([facility] [place] Unhold - Provider: Automatic Transfer) 0920 [...] from all sources in 24 hours. 1053 ([facility] [place] Hold - Provider: Automatic Transfer - Reason: Transfer to a Procedural area)1414 ([facility] [place] Unhold - Provider: Automatic Transfer)1806 (Given [...] 200-200 mg and Simethicone 20 mg) 1053 ([facility] [place] Hold - Provider: Automatic Transfer - Reason: Transfer to a Procedural area)1414 ([facility] [place] Unhold - Provider: Automatic Transfer) guaiFENesin (ROBITUSSIN) oral solution 400 mg 400 mg, Oral, EVERY 6 HOURS NEEDED, Starting on 01/16/24 at 0202, Until 01/23/24 at 1752, Cough, Congestion 1053 ([facility] [place] Hold - Provider: Automatic Transfer - Reason: Transfer to a Procedural area)1414 ([facility] [place] Unhold - Provider: Automatic Transfer) HYDROmorphone [...] 0016, Until 01/23/24 at 1752, Insomnia 1053 ([facility] [place] Hold - Provider: Automatic Transfer - Reason: Transfer to a Procedural area)1414 ([facility] [place] Unhold - Provider: Automatic Transfer)2355 (Given - Provider: Tati Ahmadi RN) Ondansetron (ZOFRAN) tablet 4 mg(Linked Group 1) 4 mg, Oral, EVERY 6 HOURS NEEDED, Starting on 01/16/24 at 0202, Until 01/23/24 at 1752, Nausea / Vomiting, 1st line for Nausea/Vomiting 1053 ([facility] [place] Hold - Provider: Automatic Transfer - Reason: Transfer to a Procedural area)1414 ([facility] [place] Unhold - Provider: Automatic Transfer)1809 (See [...] BE BASED ON THE PRIMARY CLINICAL RECORDS. [employer] provides no warranty or guarantee of the accuracy or completeness of information in this document.
== END 2025-09-13 06:44 | disposition home or self-care (01) ==
LOC: LAB 06:44
PROVIDERS: PCP Nurse Practitioner; Visit Provider Nurse Practitioner
DX: Z12.5 Encounter for screening for malignant neoplasm of prostate (principal)
CPT/HCPCS: 36415; G0103

== ENCOUNTER 2025-09-13 06:44 | Outpatient (OUT) | payer MEDICARE, SELFPAY ==
--- OUTSIDE RECORDS SUMMARY | 2025-09-13 06:46 | XMS_ITS | Encounter Summary ---
Author Organization [facility] Address [address] [place] [address] Care Team Providers Care Machine Setup Operator Name Role Phone Momo Verdugo MD Primary Care Provider [phone] Mihaela Bruno NP Unavailable [phone] Kasandra Thomas DO Unavailable [phone] Momo Verdugo MD Unavailable Encounter Details [...] No 10/27/2023 Social Connection and Isolation Panel Answer Date Recorded In a typical week, how many times do you talk on the phone with family, friends, or neighbors? Once a week 02/11/2024 How often do you get together with friends or re latives? Once a week 02/11/2024 How often do you attend sikhism or druze serv ices? Never 02/11/2024 Do you belong to any clubs o r organizations such as sikhism groups, unions, fraternal or athletic groups, or [...] 0 02/11/2024 [facility] - Occupational [...] place to sleep or slept in a snf (including now)? No 10/27/2023 Sex and Gender Information Value Date Recorded Sex Assigned at Not on file Legal Sex Male 7:07 PM EDT Gender Identity Not on file Sexual Orientation Not on file documented as of this encounter Plan of Treatment Upcoming Encounters Date Type Department Care Team (Late st Contact Info) Description 09/19/2025 9:30 AM EDT Office Visit [facility] [address] [place] [address] Tony Hernandez MD [address] [place] [address] documented as of this encounter Procedures Procedure Name Priority Date/Time Associated Diagnosis Comments MR ABDOMEN W AND WO CONTRAST 07/26/2024 8:13 AM EDT documented in this encounter Results * MR abdomen w and wo contrast (07/26/2024 8:13 AM EDT) Anatomical Region Laterality Modality Abdomen Magnetic Resonan ce 07/26/2024 8:13 AM EDT Narrative 07/26/2024 8:15 AM EDT The [address] [address] Magnetic Resonance Report Signed Patient: GEORGE STYLES MR#: [id number] : 1970 Acct:[id number] Age/Sex: 54 / M ADM Date: 07/20/24 Loc: MRI Attending Dr: Bibi-Staff Physician Pena Ordering Physician: Anastasia Aquino M.D. Date of Service: 07/20/24 Procedure(s): MR abdomen wo/w con Accession Number(s): [id number] cc: Mihaela Bruno NP; PhysicianAnastasia M.D. [place] [id number] Patient Name: GEORGE STYLES MRN: [facility]:[id number] date: 1970 Sex: M Assigned Patient Location: MRI Current Patient Location: LAB Accession/Order Number: [id number] Exam Date: 07/20/2024 08:15 Report Date: 07/26/2024 [...] No enlargement or focal lesion. KIDNEYS: The [place] kidneys are severely atrophic. Right lower quadrant [...] Dictated By: Gian Rodriguez M.D. Signed By: 07/26/2415 DD/ 2 TD/TT: Stock Trader: Procedure Note Radiology, Radiologist, - 07/26/2024 [place] [address] Magnetic Resonance Report Signed Patient: GEORGE STYLES [facility]#: [id number] : 1970Acct:[id number] Age/Sex: 54 / MADM Date: 07/20/24 Loc: MRI Attending Dr: Non-Staff Physician Becyk Ordering Physician: PhysicianNonLuisaStaff Becky Date of Service: 07/20/24 Procedure(s): MR abdomen wo/w con Accession Number(s): [id number] cc: Mihaela Bruno NP; PhysicianIvelisseStaff Becky The [place] [address] Patient Name: GEORGE STYLES MRN: [id number] date: 1970 Sex: M Assigned Patient Location: MRI Current Patient Location: LAB Accession/Order Number: [id number] Exam Date: 07/20/2024 08:15 Report Date: 07/26/2024 [...] No enlargement or focal lesion. KIDNEYS: The [place] kidneys are severely atrophic. Right lower quadrant [...] Rodriguez M.D. Signed By:07/26/24814 DD/ 2 TD/TT: Stock Trader: us Generic External Data Provider IMG MRI PROCEDURE S Final Result documented in this encounter Visit Diagnoses Not on filedocumented in this encounter Additional Health Concerns Assessment Noted Time PHQ-9 Depression Total Score: 2 02/11/20 10:49 AM EDT documented as of this encounter Care Teams Machine Setup Operator Relationship Specialty Start Date End Date Momo Verdugo MD PCP - General Family Medicine 02/11/24 Momo Verdugo MD [address] [facility] [place] [address] PCP - [employer] 12/31/24 Mihaela Bruno NP Nurse Practitioner Family Medicine 02/11/24 Kasandra Thomas DO [address] [place] [address] Referring Physician Neurology 02/17/24 documented as of this encounter
--- OUTSIDE RECORDS SUMMARY | 2025-09-13 06:46 | XMS_ITS | Encounter Summary ---
Author Organization [facility] Address [address] [place] [address] Care Team Providers Care Washcoat Wiper Name Role Phone Lexiesylvesterjose e Mihaela RIVAS Primary Care Provider [phone] Evan White DO Unavailable [phone] Evan White DO Unavailable [phone] Reason for Visit * Reason Onset Date Comments Insurance 01/13/2024 Encounter Details Date Type Department Care Team (Late st Contact Info) Description 01/13/2024 Telephone Infectious Diseases Care [facility] Outpatient Care [address] [place] [address] Cristóbal Ko MD Insurance Social History Tobacco Use Types Packs/Day [...] Health Care Caller name: Esteban Contact number: [phone] Company name: patient Concern/Notes: Pt called concerning a pre-auth, please call back. Route to INF [facility] TRIAGE [] If patient is on OPAT, route to INF OPAT [facility] TRIAGE POOL [] documented in this encounter Plan of Treatment Upcoming Encounters Date Type Department Care Team (Late st Contact Info) Description 09/20/2025 8:00 AM EDT Office Visit [facility] [address] [place] [address] documented as of this encounter Visit Diagnoses Not on filedocumented in this encounter Care Teams Washcoat Wiper Relationship Specialty Start Date End Date Mihaela Bruno CNP PCP - General 07/19/18 Evan White DO [address] [place] [address] Infectious Disease Infectious Disease 09/09/23 03/14/24 Evan White DO [address] [place] [address] Infectious Disease Infectious Disease 09/08/24 4 documented as of this encounter
--- OUTSIDE RECORDS SUMMARY | 2025-09-13 06:46 | XMS_ITS | Clinical Summary ---
Author Organization [facility] Address [id number] [address] [place] [address] Care Team Providers Care Validation Specialist Name Role Phone Unavailable Primary Care Provider [...]
--- OUTSIDE RECORDS SUMMARY | 2025-09-13 06:46 | XMS_ITS | Encounter Summary ---
Author Organization [facility] Address [address] [place] [address] Care Team Providers Care Flour Worker Name Role Phone Momo Verdugo MD Primary Care Provider [phone] Mihaela Bruno MAINTENANCE GROUNDSKEEPER Unavailable [phone] Kasandra Thomas DO Unavailable [phone] Momo Verdugo MD Unavailable Encounter Details Date Type Department Care Team (Late st Contact Info) Description 07/26/2024 Orders Only [facility] [address] [place] [address] Mihaela Bruno NP [address] [place] [address] Social History Tobacco Use Types Packs/Day Years [...] week 02/11/2024 How often do you attend judaism or worship serv ices? Never 02/11/2024 Do you belong to any clubs o r organizations such as judaism groups, unions, fraternal or athletic groups, or [...] Recorded Patient Health Questionnaire-2 Score 0 02/11/2024 [facility] - Occupational [...] AM EDT Office Visit [facility] [address] [place] [address] Tony Hernandez MD [address] [place] [address] documented as of this encounter Procedures Procedure Name Priority Date/Time Associated Diagnosis Comments MR ABDOMEN WO CONTRAST Routine 07/26/2024 11:05 AM EDT documented in this encounter Results * MR abdomen wo contrast (07/26/2024 11:05 AM EDT) Anatomical Region Laterality Modality Abdomen Magnetic Resonan ce us Mihaela Bruno NP IMG MRI PROCEDURES Final Result documented in this encounter Visit Diagnoses Not on filedocumented in this encounter Additional Health Concerns Assessment Noted Time PHQ-9 Depression Total Score: 2 02/11/20 24 10:49 AM EDT documented as of this encounter Care Teams Flour 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 Start Date End Date Momo Verdugo MD PCP - General Family Medicine 02/11/24 Momo Verdugo MD [address] [place] [facility] [place] [address] PCP - [employer] 12/31/24 Mihaela Bruno NP Nurse Practitioner Family Medicine 02/11/24 Kasandra Thomas DO [address] [place] [address] Referring Physician Neurology 02/17/24 documented as of this encounter
--- OUTSIDE RECORDS SUMMARY | 2025-09-13 06:46 | XMS_ITS | Encounter Summary ---
Author Organization [facility] Address [address] [place] [address] Care Team Providers Care Liquid Loader Name Role Phone Momo Verdugo MD Primary Care Provider [phone] Mihaela Bruno [facility] Unavailable [phone] Kasandra Thomas DO Unavailable [phone] Momo Verdugo MD Unavailable Reason for Visit * Reason Comments Med Refill Encounter Details Date Type Department Care Team (Late st Contact Info) Description 06/27/2024 Refill [facility] [address] [place] [address] Mihaela Bruno, [facility] [address] [place] [address] Other polyneuropathy Social History Tobacco Use Types [...] week 02/11/2024 How often do you attend anglican or holiness serv ices? Never 02/11/2024 Do you belong to any clubs o r organizations such as anglican groups, unions, fraternal or athletic groups, or [...] Recorded Patient Health Questionnaire-2 Score 0 02/11/2024 [facility] - [...] AM EDT Office Visit [facility] [address] [place] [address] Tony Hernandez MD [address] [place] [address] documented as of this encounter Visit Diagnoses Diagnosis Other polyneuropathy documented in this encounter Additional Health Concerns Assessment Noted Time PHQ-9 Depression Total Score: 2 02/11/20 10:49 AM EDT documented as of this encounter Care Teams Liquid Loader Relationship Specialty Start Date End Date Momo Verdugo MD PCP - General Family Medicine 02/11/24 Momo Verdugo MD [address] [place] [facility] [place] [address] PCP - [employer] 12/31/24 Mihaela Bruno NP Nurse Practitioner Family Medicine 02/11/24 Kasandra Thomas DO [address] [place] [address] Referring Physician Neurology 02/17/24 documented as of this encounter
--- OUTSIDE RECORDS SUMMARY | 2025-09-13 06:47 | XMS_ITS | Encounter Summary ---
Author Organization [facility] Address [address] [facility] [place] [address] Care Team Providers Care Exhaust Machine Operator Name Role Phone Momo Verdugo MD Primary Care Provider [phone] Mihaela Bruno NP Unavailable [phone] Kasandra Thomas DO Unavailable [phone] Momo Verdugo MD Unavailable Reason for Visit * Reason Onset Date Comments Med Refill 02/20/2025 Encounter Details Date Type Department Care Team (Late st Contact Info) Description 02/20/2025 Refill [facility] [address] [place] [address] Mihaela Bruno NP [address] [place] [address] Gastroesophageal reflux disease, unspecified whether esophagitis present [...] week 02/06/2025 How often do you attend congregational or sabianism serv ices? Never 02/06/2025 Do you belong to any clubs o r organizations such as congregational groups, unions, fraternal or athletic groups, or [...] Recorded Patient Health Questionnaire-2 Score 0 02/11/2024 [facility] [place] of Occupat ional Health - Occupational Stress [...] a long term (including now)? No 10/27/2023 Housing Stability Vital Sign Answer Chris e Recorded In the last 12 months, was t here a time when you were not able to pay the mortgage or rent on time? No 02/06/2025 In the past 12 months, how m any times have you moved where you were living? 0 02/06/2025 At any time in the past 12 m [facility], were you homeless or living in a long term (including now)? No 02/06/2025 Sex and Gender Information Value Date Recorded Sex Assigned at Not on file Legal Sex Male 7:07 PM EDT Gender Identity Not on file Sexual Orientation Not on file documented as of this encounter Plan of Treatment Upcoming Encounters Date Type Department Care Team (Late st Contact Info) Description 09/19/2025 9:30 AM EDT Office Visit [facility] [address] [place] [address] Tony Hernandez MD [address] [place] [address] documented as of this encounter Visit Diagnoses Diagnosis Gastroesophageal reflux disease, unspecified whether esophagitis present documented in this encounter Additional Health Concerns Assessment Noted Time PHQ-9 Depression Total Score: 2 02/11/20 10:49 AM EDT documented as of this encounter Care Teams Exhaust Machine Operator Relationship Specialty Start Date End Date Momo Verdugo MD PCP - General Family Medicine 02/11/24 Momo Verdugo MD [address] [place] [address] PCP - [employer] 12/31/24 Mihaela Bruno NP Nurse Practitioner Family Medicine 02/11/24 Kasandra hTomas DO [address] [place] [address] Referring Physician Neurology 02/17/24 documented as of this encounter
--- OUTSIDE RECORDS SUMMARY | 2025-09-13 06:47 | XMS_ITS | Encounter Summary ---
Author Organization [facility] Address [address] [facility] [place] [address] Care Team Providers Care Epidemiologist Name Role Phone Momo Verdugo MD Primary Care Provider [phone] Mihaela Bruno UROLOGIST Unavailable [phone] Kasandra Thomas DO Unavailable [phone] Momo Verdugo MD Unavailable Reason for Visit * Reason Comments Med Refill Encounter Details Date Type Department Care Team (Late st Contact Info) Description 01/31/2025 Refill [facility] [address] [place] [address] Mihaela Bruno, UROLOGIST [address] [place] [address] Primary hypertension Social History Tobacco Use Types Packs/Day Years [...] week 02/11/2024 How often do you attend buddhist or orthodoxy serv ices? Never 02/11/2024 Do you belong to any clubs o r organizations such as buddhist groups, unions, fraternal or athletic groups, or [...] Recorded Patient Health Questionnaire-2 Score 0 02/11/2024 [facility] of Occupat ional Health - Occupational [...] money to buy more. Never true 10/27/20 Within the past 12 months, t he [...] place to sleep or slept in a [facility]p (including now)? No 10/27/2023 Sex and Gender Information Value Date Recorded Sex Assigned at Not on file Legal Sex Male 7:07 PM EDT Gender Identity Not on file Sexual Orientation Not on file documented as of this encounter Plan of Treatment Upcoming Encounters Date Type Department Care Team (Late st Contact Info) Description 09/19/2025 9:30 AM EDT Office Visit [facility] [place] [facility] [address] [place] [address] Tony Hernandez MD [address] [place] [address] documented as of this encounter Visit Diagnoses Diagnosis Primary hypertension Unspecified essential hypertension documented in this encounter Additional Health Concerns Assessment Noted Time PHQ-9 Depression Total Score: 2 02/11/20 10:49 AM EDT documented as of this encounter Care Teams Epidemiologist Relationship Specialty Start Date End Date Momo Verdugo MD PCP - General Family Medicine 02/11/24 Momo Verdugo MD [address] [facility] [place] [address] PCP - [employer] 12/31/24 Mihaela Bruno NP Nurse Practitioner Family Medicine 02/11/24 Kasandra Thomas DO [address] [place] [address] Referring Physician Neurology 02/17/24 documented as of this encounter
--- OUTSIDE RECORDS SUMMARY | 2025-09-13 06:47 | XMS_ITS | Encounter Summary ---
Author Organization [facility] enter Address [address] [place] [address] Care Team Providers Care Chief Cloth Finishing Range Operator Name Role Phone Mihaela Bruno CNP Primary Care Provider [phone] Reason for Visit * Reason Comments Medication Refill Encounter Details Date Type Department Care Team (Late st Contact Info) Description 09/11/2025 Refill [facility] [address] [place] [address] Christiane Ramsey MD [address] [place] [address] Social History Tobacco Use Types Packs/Day Years [...] of Assessment Author No 01/16/2024 1:01 AM EST Izzy Gutierrez RN * Are you blind or do [...] encounter Miscellaneous Notes * Telephone Encounter - Kasandra Weiner RN - 09/11/2025 2:46 PM EDT REFILL REQUEST Patient Name: Esteban Styles ( ) Date of Liver Transplant: 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, [address] [facility] [address] [facility]/pharmacy #[id number] [place] [address] [address] [facility] [address] [facility] [address] [facility] [address] [facility] [address] [employer] [address] [place] [address] [address] [place] [address] Lab compliance: Today's date: 09/11/25 Most recent labs are from: 08/11/25 Lab frequency ordered: Every 3 months [facility] Appointment compliance: Last in person Transplant clinic appointment: 08/11/2025 JEANNA Hess Last Transplant telehealth appointment: 01/17/2022 [facility] Next scheduled clinic appointment: 09/20/2025 [facility], [facility] Comments / Outcome: documented in this encounter Plan of Treatment Upcoming Encounters Date Type Department Care Team (Late st Contact Info) Description 09/20/2025 8:00 AM EDT Office Visit [facility] [address] [place] [address] documented as of this encounter Visit Diagnoses Not on filedocumented in this encounter Care Teams Chief Cloth Finishing Range Operator Relationship Specialty Start Date End Date Mihaela Bruno CNP PCP - General 07/19/18 documented as of this encounter
--- OUTSIDE RECORDS SUMMARY | 2025-09-13 06:47 | XMS_ITS | Clinical Summary ---
Author Organization [facility] Address [address] [facility] [address], [address] [place] [address] Care Team Providers Care Jd Edwards Name Role Phone Unavailable Primary Care Provider Unavailabl e Allergies No known active allergies Medications aspirin 81 MG chewable tablet Take 81 mg by mouth daily Active midodrine (PROAMATINE) 5 MG tablet Take 10 mg by mouth 3 times daily Prn with dialysis Active lactulose (CEPHULAC) 20 g packet Take 20 g by mouth 3 times daily Active Multiple Vitamins-Minera ls (THERAPEUTIC MULTIVITAMIN-[place] NERALS) tablet Take 1 tablet by mouth [...] 40 mEq by mouth daily Active b dhqvmco-N-duevd acid (NEPHROCAPS) 1 MG capsule Take 1 [...]
--- OUTSIDE RECORDS SUMMARY | 2025-09-13 06:47 | XMS_ITS | Encounter Summary ---
Author Organization [facility] Address [address] [place] [address] Care Team Providers Care Embroiderer Name Role Phone Momo Verdugo MD Primary Care Provider [phone] Mihaela Bruno COMPETITIVE SHOPPER Unavailable [phone] MarthaNathanle DO Unavailable [phone] Momo Verdugo MD Unavailable Encounter Details Date Type Department Care Team (Late st Contact Info) Description 03/07/2025 Orders Only [facility] [place] [facility] [address] [place] [address] Tony Hernandez MD [address] [place] [address] Social History Tobacco Use Types Packs/Day Years [...] week 02/06/2025 How often do you attend zoroastrian or voodoo serv ices? Never 02/06/2025 Do you belong [...] Recorded Patient Health Questionnaire-2 Score 0 02/11/2024 [facility] of Occupat ional Health - Occupational Stress [...] in a fpc (including now)? No 10/27/2023 Housing Stability Vital Sign Answer Chris e Recorded In the last 12 months, was t here a time when you were not able to pay the mortgage or rent on time? No 02/06/2025 In the past 12 months, how m any times have you moved where you were living? 0 02/06/2025 At any time in the past 12 m [facility], were you homeless or living in a fpc (including now)? No 02/06/2025 Sex and Gender Information Value Date Recorded Sex Assigned at Not on file Legal Sex Male 7:07 PM EDT Gender Identity Not on file Sexual Orientation Not on file documented as of this encounter Plan of Treatment Upcoming Encounters Date Type Department Care Team (Late st Contact Info) Description 09/19/2025 9:30 AM EDT Office Visit [facility] [place] [facility] [address] [place] [address] Tony Hernandez MD [address] [place] [address] documented as of this encounter Procedures Procedure [...] documented as of this encounter Care Teams Embroiderer Relationship Specialty Start Date End Date Momo Verdugo MD PCP - General Family Medicine 02/11/24 Momo Verdugo MD [address] [facility] [place] [address] PCP - [employer] 12/31/24 Mihaela Bruno NP Nurse Practitioner Family Medicine 02/11/24 Kasandra Thomas DO [address] [place] [address] Referring Physician Neurology 02/17/24 documented as of this encounter
--- OUTSIDE RECORDS SUMMARY | 2025-09-13 06:47 | XMS_ITS | Encounter Summary ---
Author Organization [facility] Address [address] [place] [address] Care Team Providers Care Cnc Machine Operator Name Role Phone Momo Verdugo MD Primary Care Provider [phone] Mihaela Bruno BAKERY SUPERVISOR Unavailable [phone] Kasandra Thomas DO Unavailable [phone] Momo Verdugo MD Unavailable Encounter Details Date Type Department Care Team (Late st Contact Info) Description 09/05/2024 Orders Only [facility] [address] [place] [address] Mihaela Bruno NP [address] [place] [address] Social History Tobacco Use Types Packs/Day Years [...] week 02/11/2024 How often do you attend faith or mu-ism serv ices? Never 02/11/2024 Do you belong to any clubs o r organizations such as faith groups, unions, fraternal or athletic groups, or [...] Recorded Patient Health Questionnaire-2 Score 0 02/11/2024 [facility] of Occupat ional Health [...] [facility] [place] [facility] [address] [place] [address] Tony Hernandez MD [address] [place] [address] documented as of this encounter Procedures Procedure Name Priority Date/Time Associated Diagnosis Comments XR DEXA AXIAL SKELETON* Routine 09/05/2024 11:52 AM EDT documented in this encounter Results * XR DEXA AXIAL SKELETON* (09/05/2024 11:52 AM EDT) Anatomical Region Laterality Modality Radiographic Ardha ging us Mihaela Bruno BAKERY SUPERVISOR IMG XR PROCEDURES Final Result documented in this encounter Visit Diagnoses Not on filedocumented in this encounter Additional Health Concerns Assessment Noted Time PHQ-9 Depression Total Score: 2 02/11/20 24 10:49 AM EDT documented as of this encounter Care Teams Cnc Machine Operator Relationship Specialty Start Date End Date Momo Verdugo MD PCP - General Family Medicine 02/11/24 Momo Verdugo MD [address] [facility] [place] [address] PCP - [employer] 12/31/24 Mihaela Bruno NP Nurse Practitioner Family Medicine 02/11/24 Kasandra Thomas DO [address] [place] [address] Referring Physician Neurology 02/17/24 documented as of this encounter
--- OUTSIDE RECORDS SUMMARY | 2025-09-13 06:47 | XMS_ITS | Clinical Summary ---
Author Organization [facility] Address [address] [facility] [place] [address] Care Team Providers Care Central Control Room Operator Name Role Phone Momo Verdugo MD Primary Care Provider [phone] Mihaela Bruno STRATEGIC PLANNER Unavailable [phone] Kasandra Thomas DO Unavailable [phone] Momo Verdugo MD Unavailable Allergies Active Allergy Reactions Criticality Noted Date Comments Shellfish Protein-Containing Drug Products Swelling High 02/08/2019 Patient with lip and tongue swelling. Medications aspirin 81 MG chewable tablet Chew 1 tablet Daily Active mycophenolate (Myfortic) 360 MG EC tablet Take 1 tablet by mouth every 12 (twelve) hours 023 Active ondansetron (Zofran) 4 MG tablet Take 1 tablet by mouth every 8 (eight) hours if needed for nausea or vomiting Active polyethylene glycol, PEG, 3350 (Glycolax) 17 GM/SCOOP powder Take 17 g by mouth in the morning. Active tacrolimus (Prograf) 0.5 MG capsuleIndication s:Liver Transplant Status,Renal Transplant Status Take 0.2 mg by mouth every 12 (twelve) hours 5 days a week (Thursday-Thursday ) 023 Active sulfamethoxazole- trimethoprim (Bactrim DS) 800-160 MG per tablet Take 1 tablet by mouth 3 (three) times a week 024 Active torsemide (Demadex) 20 MG tablet Take 20 mg by mouth in the morning. 024 Active melatonin [address] 3 mg under the tongue at bedtime Active tadalafil (Cialis) 10 MG tablet Take 10 mg by mouth Daily as needed for erectile dysfunction Active tamsulosin (Flomax) 0.4 MG 24 hr capsule 0.4 mg 2024 Active atorvastatin (Lipitor) 20 MG tablet Take 20 mg by mouth at bedtime Active amLODIPine (Norvasc) 10 MG tablet Take 10 mg by mouth in the morning. Active famotidine (Pepcid) 20 MG tabletIndications :Gastroesophageal reflux disease, unspecified whether esophagitis present Take 1 tablet (20 mg) by mouth in the morning and 1 tablet (20 mg) before bedtime. 180 tablet 1 Active gabapentin (Neurontin) 400 MG capsuleIndication s:Other polyneuropathy Take 1 capsule (400 mg) by mouth at bedtime 90 capsule 1 025 2024 Active alendronate (Fosamax) 70 MG tabletIndications :Other osteoporosis without current pathological fracture Take 1 tablet (70 mg) by mouth every 7 (seven) days TAKE 1 TABLET BY MOUTH EVERY 7 DAYS ON AN EMPTY STOMACH, remain upright for at least 30 MINUTES 12 tablet 1 Active ergocalciferol (Vitamin D2) 1.25 MG (79064 UT) capsuleIndication s:Vitamin D deficiency Take 1 capsule (1.25 mg) by mouth every 7 (seven) days 12 capsule 1 025 Active ergocalciferol (Vitamin D-2) 1.25 MG (91724 UT) capsuleIndication s:Vitamin D deficiency Take 1 capsule (1.25 mg) by mouth 1 (one) time per week 12 capsule 1 025 2024 Discontinued alendronate (Fosamax) 70 MG tabletIndications :Other osteoporosis without current pathological fracture Take 1 tablet (70 mg) by mouth every 7 (seven) days 1 tablet weekly on an empty stomach, remain upright for at least 30 minutes 12 tablet 1 025 2024 Discontinued alendronate (Fosamax) 70 MG tabletIndications :Other osteoporosis without current pathological fracture TAKE 1 TABLET BY MOUTH EVERY 7 DAYS ON AN EMPTY STOMACH, remain upright for at least 30 MINUTES 12 tablet 1 025 2024 Discontinued(R eorder) ergocalciferol (Vitamin D2) 1.25 MG (59570 UT) capsuleIndication s:Vitamin D deficiency TAKE 1 CAPSULE BY MOUTH once a week 12 capsule 1 025 2024 Discontinued(R eorder) Active Problems Problem Noted Date Diagnosed Date [...] DEXA 09/06/2024: -2.5 osteoporosis Assessment & Plan (05/11/2025 6:19 AM EDT): 09/22 DEXA scan is -2.5 osteoprosis Did receive contact back from [facility] regarding treatment, after discussion with them, as well as Dr Verdugo, pt was referred to Endo to help with appropriate treatment plan given his hx of : kidney/liver transplant, as well as kidney stones Assessment & Plan (02/08/2025 6:09 AM EDT): [...] Other constipation 08/23/2024 Decreased urine stream 08/23/2024 Eczema 02/25/2024 Weakness generalized 02/18/2024 Portal hypertension 02/11/2024 Assessment & Plan (11/07/2024 7:09 AM EST): Stable, continues w hepatology Assessment & Plan (08/23/2024 8:56 AM EDT): Stable, continues w hepatology Left carotid bruit 02/11/2024 [...] 02/11/2024 Hyperlipidemia 02/11/2024 Encounter for subsequent shaheen ual wellness visit (AWV) in Medicare patient 02/11/2024 Assessment & Plan (05/11/2025 6:19 AM EDT): Reviewed Ht/Wt/BMI Recommend eye exam yearly Recommend dental exams twice a year Balance work/leisure activities Exercises is recommended most days of the week (appropriate as chronic conditions allow) Follow up yearly and prn Assessment & Plan (02/11/2024 12:47 PM EDT): [...] Insomnia 01/06/2024 Hypertension 01/06/2024 Assessment & Plan (05/11/2025 10:39 AM EDT): Please check blood pressure daily and record DASH diet Limit caffeine Take medication as directed Contact office if chest pain, pressure, dizziness, shortness of breath, swelling legs Recommend slow position changes Current meds: amlodipine Will order bp cuff Assessment & Plan (02/08/2025 6:07 AM EDT): [...] 12/10/2023 Peripheral neuropathy 12/03/2023 Assessment & Plan (05/11/2025 6:17 AM EDT): Current medication is gabapentin OARRS reviewed Assessment & Plan (02/08/2025 6:06 AM EDT): Current medication is gabapentin OARRS reviewed Abdominal pain, generalized 11/03/2023 Assessment & Plan (08/23/2024 9:28 AM EDT): Reviewed labs and MRI report Will refer to GI as well Anemia, unspecified 11/03/2023 Complication of dialysis access insertion 2022 Dysfunction of papillary muscle 11/03/2023 Blood glucose elevated 11/03/2023 Gastroesophageal reflux disease 11/03/2023 Assessment & Plan (05/11/2025 6:18 AM EDT): Recommendations: freq small meals, nothing to eat or drink at least 2 hours prior to bed, limit caffeine, alcohol, as well as spicy foods Meds to limit or avoid if possible: NSAIDS Elevate HOB if possible Current med: pepcid Assessment & Plan (02/08/2025 6:14 AM EDT): [...] Obesity (BMI 30-39.9) 11/03/2023 Assessment & Plan (05/11/2025 6:19 AM EDT): Discussed with patient their BMI (actual, verses recommended). We have also discussed lifestyle modifications: attempts to perform physical activity as chronic conditions allow, also to monitor dietary intake: increasing protein/fruits/veggies and lowering carb intake (unless contraindicated). Limit sodas, juices, and sugary drinks. Assessment & Plan (02/08/2025 6:10 AM EDT): [...] time 20 with humidification Assessment & Plan (05/11/2025 6:17 AM EDT): You have a diagnosis of [...] manages your DARLENE: Martha Assessment & Plan (02/08/2025 8:59 AM EDT): [...] to get a sleep titration study completed Tremor 11/03/2023 Assessment & Plan (01/06/2024 9:46 [...] years ago. He received this transplant at [facility] and his transplant team is at [facility]. 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 He has an upcoming appt with infectious disease , but is being told that the provider is out of network. It appears that many of the providers he sees at [facility] are out of network. I am including this documentation to ask for approval for him to see these providers. Normally I would be willing to find a provider in network, however, due to the complexity of this patient's case having had his double organ transplant at [facility], his ongoing complications that he is experiencing as a result of those co morbidities (anti rejection medications etc) I feel medically this is in his best interest to continue to see the team of specialist that are familiar with his case. He is scheduled for a telehealth appt with Dr. Cristóbal Ko on 03/01/24. His NPI number is [id number], [facility] physician NPI number is [id number] Assessment & Plan (02/13/2024 8:10 AM EDT): Left a message for his senior international tax manager at [facility] ([phone]). He is having trouble getting an approval for an fu appt with ID at [facility]-out of network provider. 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 He received this transplant at [facility] and his transplant team is at [facility]. 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 He has an upcoming appt with infectious disease , but is being told that the provider is out of network. It appears that many of the providers he sees at [facility] are out of network. I am including this documentation to ask for approval for him to see these providers. Normally I would be willing to find a provider in network, however, due to the complexity of this patient's case having had his double organ transplant at [facility], his ongoing complications that he is experiencing as a result of those co morbidities (anti rejection medications etc) I feel medically this is in his best interest to continue to see the team of specialist that are familiar with his case. He is scheduled for a telehealth appt with Dr. Cristóbal Ko on 03/01/24. His NPI number is [id number], [facility] physician NPI number is [id number] a telemed visit with ID on 03/01/24, have had difficulty with insurance company getting this approved 02/12/24 I did speak with the senior international tax manager for the patient today at 15;13pm, I will continue working on this getting approved. Over 30 minutes spent with [facility] and [facility] attempting to get to correct NPI numbers etc. No resolution to this situation I am going to place a referral for our referrals department to try to get taken care of. Arteriosclerosis of coronary artery 04/13/2023 Assessment & Plan (05/11/2025 6:18 AM EDT): Recently saw [facility] Cardiology Reviewed notes , increased his amlodipine as well as resumed his statin Resolved Problems Problem Noted Date Diagnosed Date Resolved Date Overweight (BMI 25.0-29.9) 04/18/2024 0 05/11/2025 GI bleeding 02/11/2024 02/11/2024 Pancreatitis (HHS-HCC) 02/11/202402/10 Alcoholic cirrhosis of liver with ascites 02/11/2024 02/11/2024 Acute kidney failure 11/03/2023 024 Stage 4 chronic kidney disease 11/03/2023 05/11/2025 Gastrointestinal bleeding 11/03/2023 Kidney stones 11/03/2023 05/11/2025 Assessment & Plan (11/07/2024 2:56 PM EST): Would caution use of calcium d/t this Assessment & Plan (11/03/2023 9:11 AM EST): Has been waiting on refill with [facility], still nothing, will refill flomax Organ transplant 11/03/2023 02/08/2025 Overview (02/11/2024): Kidney and liver Assessment & Plan (04/18/2024 10:10 AM EDT): Kidney and liver, cont with transplant team Assessment & Plan (02/13/2024 8:10 AM EDT): Both kidney and liver Liver transplant status 01/28 Overview (11/03/2023): Kidney and liver Assessment & Plan (02/11/2024 12:46 PM EDT): Continue with transplant team at [facility] Encounters Date Type Department Care Team Description 09/12/2025 Travel 09/08/2025 Refill [facility] [place] [facility] [address] [place] [address] Radha Cardona LPN Other osteoporosis without current pathological fracture; Vitamin D deficiency 09/07/2025 Refill [facility] [address] [place] [address] Tony Hernandez MD Other osteoporosis without current pathological fracture; Vitamin D deficiency 07/12/2025 Refill [facility] [address] [facility] [place] [id number] Mihaela Bruno NP Other polyneuropathy 07/05/2025 Clinisync Result Encounter [facility] Department Unsolicited [...] week 02/06/2025 How often do you attend sikhism or gnosticism serv ices? Never 02/06/2025 Do you belong [...] you are drinking? Patient does not drink 03/10/202 5 Q3: How often do you have si x or more drinks on one occasion? Never 02/06/2025 Overall Financial Resource Strain (CARDIA) Answe r Date Recorded How hard is it for you to pa y for the very basics like food, housing, medical care, and heating? Not hard at all 02/06/2025 PHQ-2 Answer Date Recorded Patient Health Questionnaire-2 Score 0 05/11/2025 [facility]ational Stress Questionnaire Answer Date [...] place to sleep or slept in a senior living (including now)? No 10/27/2023 Housing Stability Vital Sign Answer Chris e Recorded In the last 12 months, was t here a time when you were not able to pay the mortgage or rent on time? No 02/06/2025 In the past 12 months, how m any times have you moved where you were living? 0 02/06/2025 At any time in the past 12 m [facility], were you homeless or living in a senior living (including now)? No 02/06/2025 Sex and Gender Information Value Date Recorded Sex Assigned at Not on file Legal Sex Male 7:07 PM EDT Gender Identity Not on file Sexual Orientation Not on file Last Filed Vital Signs Vital Sign Reading Time Taken Comments Blood Pressure 136/82 05/11/2025 10:38 AM EDT Pulse 74 05/11/2025 10:07 AM EDT Temperature 37.1 C (98.7 F) 05/11/2025 10:07 AM EDT Respiratory Rate 20 05/11/2025 10:07 AM EDT Oxygen Saturation 96% 05/11/2025 10:07 AM EDT Inhaled Oxygen Concentration - - Weight 92.5 kg (204 lb) 05/11/2025 10:07 AM EDT Height 170.2 cm (5' 7 ) 03/21/2025 9:43 AM EDT Body Mass Index 31.95 03/21/2025 9:43 AM EDT Plan of Treatment Upcoming Encounters Date Type Department Care Team (Late st Contact Info) Description 09/19/2025 9:30 AM EDT Office Visit [facility] [address] [place] [address] Tony Hernandez MD [address] [place] [address] Health Maintenance Due Date Last Done Comments CT Colonography 1971 FIT-DNA 1971 FIT 1971 FOBT 1971 Sigmoidoscopy 1971 Influenza Vaccine (#1) 2025 , 11/03/2023, 11/03/2023, Additional history exists Medicare Annual Wellness (AWV) 05/11/2026 05/11/2025 , 02/11/2024, 02/11/2024 Colonoscopy 12/26/2034 12/26/2024, 12/01, 09/20/2019, Additional history exists Colorectal Cancer Screening 12/26/2034 Procedures Procedure Name Priority Date/Time Associated Diagnosis Comments MAGNESIUM Routine 07/05/2025 9:09 AM EDT Other osteoporosis without current pathological fracture TACROLIMUS (FK506), BLOOD Routine 07/05/2025 7:05 AM EDT ALL ALBUMIN Routine 07/05/2025 7:05 AM EDT [facility] ALKALINE PHOSPHATASE Routine 07/05/2025 7:05 AM EDT [facility] ALT Routine 07/05/2025 7:05 AM EDT [facility] AST Routine 07/05/2025 7:05 AM EDT ALL GAMMA GLUTAMYL TRANSPEPTIDASE Routine 07/05/2025 7:05 AM EDT METRO BILIRUBIN, DIRECT Routine 07/05/2025 7:05 AM EDT ALL BILIRUBIN,TOTAL Routine 07/05/2025 7 :05 AM EDT ALL PHOSPHOROUS Routine 07/05/2025 7:05 AM EDT ALL BASIC METABOLIC PANEL Routine 07/05/2025 7:05 AM EDT ALL MAGNESIUM Routine 07/05/2025 7:05 AM EDT ALL CBC WITH AUTO DIFF Routine 7:05 AM EDT COLONOSCOPY Routine 12/26/2024 1:58 PM EST from Last 3 Months or Most Recently Relevant to Health Maintenance Results * Magnesium (07/05/2025 9:09 AM EDT) Blood Venous blood specimen / Unknown us Tony Hernandez MD LAB BLOOD ORDERABLES Final Re sult Performing Organization Address City/State/[facility] Co de Phone Number [facility] * TACROLIMUS (FK506), BLOOD (07/05/2025 7:05 AM EDT) Pathologist [facility] TACROLIMUS (FK506), BLOOD 5.2 5.0 - 20.0 ng/mL [facility] Comment: This test was developed and its performance characteristics determined by [facility]. It has not been cleared or approved by the Food and Drug Administration. Target steady state trough concentration for Tacrolimus varies based on type of organ transplant immunosuppressive protocol and other patient specific factors. Tacrolimus trough concentrations should be interpreted in conjunction with clinical assessments of rejection and tolerability. Values obtained with different assay methods cannot be used interchangeably due to differences in assay methods and cross-reactivty with metabolites, nor should correction factors be applied. Therefore, consistent use of one assay for individual patients is recommended. Detection Limit = 0.5 ng/mL Performed by LC-MS/MS technology. Performed at: [address] [id number] [employer] Equipment Supervisor: Liudmila Kingsley MD, Phone: [phone] 07/05/2025 7:05 AM EDT 07/05/2025 7:12 AM EDT Narrative [facility] - 07/08/2025 5:08 PM EDT Generic External Data Provider LAB BLOOD ORDERAB LES Final Result Performing Organization Address [facility] de Phone Number [facility] * METRO BILIRUBIN, DIRECT (07/05/2025 7:05 AM EDT) [facility] BILIRUBIN DIRECT 0.2 0.0 - 0.2 mg/dL TB 07/05/2025 7:05 AM EDT 07/05/2025 7:12 AM EDT Narrative [facility] - 07/05/2025 10:35 AM EDT Generic External Data Provider [facility] F inal Result Performing Organization Address [facility] Co de [facility] * [facility] ALKALINE PHOSPHATASE (07/05/2025 7:05 AM EDT) ALKALINE PHOSPHATASE 114 46 - 116 U/L [facility] 07/05/2025 7:05 AM EDT 07/05/2025 7:12 AM EDT Narrative [facility] - 07/05/2025 10:35 AM EDT Generic External Data Provider CLINIS[facility]NC F inal Result Performing Organization Address [facility] de Phone Number [facility] * [facility] AST (07/05/2025 7:05 AM EDT) ASPARTATE AMINO TRANSFERASE 20 15 - 37 U/L [facility] 07/05/2025 7:05 AM EDT 07/05/2025 7:12 AM EDT Narrative [facility] - 07/05/2025 10:35 AM EDT Generic External Data Provider CLIN[facility] F inal Result Performing Organization Address [facility] de Phone Number [facility] * [facility] ALT (07/05/2025 7:05 AM EDT) ALANINE AMINOTRANSFERASE 33 16 - 63 U/L [facility] 07/05/2025 7:05 AM EDT 07/05/2025 7:12 AM EDT Narrative [facility] - 07/05/2025 10:35 AM EDT Generic External Data Provider CLIN[facility]NC F inal Result Performing Organization Address [facility] de Phone Number [facility] TB * (ABNORMAL) ALL PHOSPHOROUS (07/05/2025 7:05 AM EDT) PHOSPHORUS 2.5(L) 2.6 - 4.7 mg/dL TBH 07/05/2025 7:05 AM EDT 07/05/2025 7:12 AM EDT Narrative [facility] - 07/05/2025 10:35 AM EDT us Generic External Data Provider CLIN[facility]NC F inal Result [facility] TB * ALL MAGNESIUM (07/05/2025 7:05 AM EDT) MAGNESIUM 1.8 1.8 - 2.4 mg/dL TB 07/05/2025 7:05 AM EDT 07/05/2025 7:12 AM EDT Narrative [facility] - 07/05/2025 8:19 AM EDT Generic External Data Provider CLINIS[facility]NC F inal Result Performing Organization Address [facility]/ZIP Co de Phone Number [facility] * ALL GAMMA GLUTAMYL TRANSPEPTIDASE (07/05/2025 7:05 AM EDT) GAMMA GLUTAMYL TRANSPEPTIDASE 21 15 - 85 U/L TB 07/05/2025 7:05 AM EDT 07/05/2025 7:12 AM EDT Narrative [facility] - 07/05/2025 10:35 AM EDT Generic External Data Provider CLINISYNC F inal Result Performing Organization Address [facility] de Phone Number [facility] * ALL CBC WITH AUTO DIFF (07/05/2025 7:05 AM EDT) TBH WBC 5.1 4.0 - 11.0 10 3/uL TBH TB RBC 5.34 4.70 - 6.10 10 6/uL TBH TB HGB 15.7 14.0 - 18.0 g/dL TB TB HCT 45.9 42.0 - 54.0 % TBH TBH MCV 86.0 80.0 - 94.0 fL TBH TBH MCH 29.4 25.9 - 34.0 pg TBH TBH MCHC 34.2 29.9 - 35.2 g/dL TB TB RDW 12.2 11.0 - 15.0 % TBH TBH PLT 228 150 - 450 10 3/uL TBH TBH MPV 9.8 9.5 - 13.5 fL TBH NEUTROPHILS PERCENT AUTO 53.5 43.0 - 75.0 % TBH LYMPHOCYTES PERCENT AUTO 32.8 20.5 - 60.0 % TBH MONOCYTES PERCENT AUTO 9.3 1.7 - 12.0 % TBH TBH EO % 3.6 0.9 - 7.0 % TBH BASOPHILS PERCENT AUTO 0.6 0.2 - 2.0 % TBH IMMATURE GRANULOCYTES PCT AUTO 0.2 0.0 - 0.5 % TBH NEUTROPHILS ABSOLUTE AUTO 2.7 1.4 - 6.5 10 3/uL TBH LYMPHOCYTES ABSOLUTE AUTO 1.7 1.2 - 3.8 10 3/uL TBH MONOCYTES ABSOLUTE AUTO 0.5 0.3 - 0.8 10 3/uL TBH TBH EO # 0.2 0.0 - 0.7 10 3/uL TBH BASOPHILS ABSOLUTE AUTO 0.0 0.0 - 0.1 10 3/uL TBH IMMATURE GRANULOCYTES ABS AUTO 0.01 0.00 - 0.03 10 3/uL TBH 07/05/2025 7:05 AM EDT 07/05/2025 7:12 AM EDT Narrative [facility] - 07/05/2025 7:42 AM EDT Generic External Data Provider CLINISYNC F inal Result Performing Organization Address [facility] de Phone Number [facility] * ALL BILIRUBIN,TOTAL (07/05/2025 7:05 AM EDT) BILIRUBIN TOTAL 0.9 0.2 - 1.0 mg/dL TB 07/05/2025 7:05 AM EDT 07/05/2025 7:12 AM EDT Narrative [facility] - 07/05/2025 10:35 AM EDT Generic External Data Provider CLIN[facility] F inal Result Performing Organization Address [facility] de Phone Number [facility] * (ABNORMAL) ALL BASIC METABOLIC PANEL (07/05/2025 7:05 AM EDT) SODIUM 141 136 - 145 mmol/L TBH POTASSIUM 3.6 3.5 - 5.1 mmol/L TBH CHLORIDE 106 98 - 107 mmol/L TBH CARBON DIOXIDE 28.1 21.0 - 32.0 mmol/L TBH ANION GAP 10.5 TBH GLUCOSE 118(H) 74 - 106 mg/dL TBH BLOOD UREA NITROGEN 21.0(H) 7.0 - 18.0 mg/dL TBH CREATININE 1.12 0.70 - 1.30 mg/dL TBH TBH EGFR-AF MONTENEGRIN >60 >=60 mL/min/1.7 3m 2 TBH TBH EGFR-NON AF MONTENEGRIN >60 >=60 mL/min/1.7 3m 2 TBH BUN CREATININE RATIO 18.8 TBH CALCIUM 9.5 8.5 - 10.1 mg/dL TBH 07/05/2025 7:05 AM EDT 07/05/2025 7:12 AM EDT Narrative [facility] - 07/05/2025 10:35 AM EDT Generic External Data Provider CLINISYNC F inal Result Performing Organization Address [facility] de Phone Number CLIN[facility]NC [facility] * ALL ALBUMIN (07/05/2025 7:05 AM EDT) ALBUMIN LEVEL 4.0 3.4 - 5.0 g/dL TBH 07/05/2025 7:05 AM EDT 07/05/2025 7:12 AM EDT Narrative [facility] - 07/05/2025 10:35 AM EDT Generic External Data Provider CLINISYNC F inal Result Performing Organization Address [facility] de Phone Number CL[facility] * Colonoscopy (12/26/2024 1:58 PM EST) Anatomical Region Laterality Modality Endoscopy Yoselyn Goins MD ENDOSCOPY PROCEDURE ORDERABLES F inal Result from Last 3 Months or Most Recently Relevant to Health Maintenance Insurance [employer]AGE Care Teams Central Control Room Operator Relationship Specialty Start Date End Date Momo Verdugo MD PCP - General Family Medicine 02/11/24 Momo Verdugo MD [address] [place] [address] PCP - [employer] 12/31/24 Mihaela Bruno NP Nurse Practitioner Family Medicine 02/11/24 Kasandra Thomas DO [address] [place] [address] Referring Physician Neurology 02/17/24
--- OUTSIDE RECORDS SUMMARY | 2025-09-13 06:47 | XMS_ITS | Encounter Summary ---
Author Organization [facility] Address [address] [place] [address] Care Team Providers Care Ornamental Iron Worker Apprentice Name Role Phone Momo Verdugo MD Primary Care Provider [phone] Mihaela Bruno NP Unavailable [phone] Kasandra Thomas DO Unavailable [phone] Momo Verdugo MD Unavailable Reason for Visit * Reason Onset Date Comments Med Refill 09/08/2025 Encounter Details Date Type Department Care Team (Late st Contact Info) Description 09/08/2025 Refill [facility] [facility] [address] [place] [address] Radha Cardona LPN Other osteoporosis without current pathological fracture; Vitamin D deficiency Social History Tobacco Use Types Packs/Day Years [...] week 02/06/2025 How often do you attend catholic or christianity serv ices? Never 02/06/2025 Do you belong [...] Recorded Patient Health Questionnaire-2 Score 0 05/11/2025 [facility] of Occupat ional Health - Occupational Stress [...] in a alf (including now)? No 10/27/2023 Housing Stability Vital Sign Answer Chris e Recorded In the last 12 months, was t here a time when you were not able to pay the mortgage or rent on time? No 02/06/2025 In the past 12 months, how m any times have you moved where you were living? 0 02/06/2025 At any time in the past 12 m [facility], were you homeless or living in a alf (including now)? No 02/06/2025 Sex and Gender Information Value Date Recorded Sex Assigned at Not on file Legal Sex Male 7:07 PM EDT Gender Identity Not on file Sexual Orientation Not on file documented as of this encounter Miscellaneous Notes * Telephone Encounter - Radha Cardona LPN - 09/08/2025 11:30 AM EDT MEDICATION SENT TO PHARMACY. documented in this encounter Plan of Treatment Upcoming Encounters Date Type Department Care Team (Late st Contact Info) Description 09/19/2025 9:30 AM EDT Office Visit [facility] [facility] [address] [place] [address] Tony Hernandez MD [address] [place] [address] documented as of this encounter Visit Diagnoses Diagnosis Other osteoporosis without current pathological fracture Vitamin D deficiency documented in this encounter Additional Health Concerns Assessment Noted Time PHQ-9 Depression Total Score: 0 05/11/20 25 10:09 AM EDT documented as of this encounter Care Teams Ornamental Iron Worker Apprentice Relationship Specialty Start Date End Date Momo Verdugo MD PCP - General Family Medicine 02/11/24 Momo Verdugo MD [address] [place] [address] PCP - [employer] 12/31/24 Mihaela Bruno NP Nurse Practitioner Family Medicine 02/11/24 Kasandra Thomas DO [address] [place] [address] Referring Physician Neurology 02/17/24 documented as of this encounter
--- OUTSIDE RECORDS SUMMARY | 2025-09-13 06:47 | XMS_ITS | Encounter Summary ---
Author Organization [facility] Address [address] [place] [address] Care Team Providers Care Sweater Designer Name Role Phone Momo Verdugo MD Primary Care Provider [phone] Mihaela Bruno TIRE MOLD ENGRAVER Unavailable [phone] MarthaKasandra clark DO Unavailable [phone] Momo Verdugo MD Unavailable Encounter Details Date Type Department Care Team (Late st Contact Info) Description 12/26/2024 Orders Only [facility] [address] [facility] [place] [address] Yoselyn Goins MD [address] [facility] [address] [place] [address] Social History Tobacco Use Types Packs/Day [...] week 02/11/2024 How often do you attend sabianist or adventism serv ices? Never 02/11/2024 Do you belong to any clubs o r organizations such as sabianist groups, unions, fraternal or athletic groups, or [...] Recorded Patient Health Questionnaire-2 Score 0 02/11/2024 [facility]ational Stress Questionnaire Answer Date [...] a senior living (including now)? No 10/27/2023 Sex and Gender [...] Visit [facility] [place] [facility] [address] [place] [address] Tony Hernandez MD [address] [place] [address] documented as of this encounter Procedures Procedure Name Priority Date/Time Associated Diagnosis Comments COLONOSCOPY Routine 12/26/2024 1:58 PM EST documented in this encounter Results * Colonoscopy (12/26/2024 1:58 PM EST) Anatomical Region Laterality Modality Endoscopy us Yoselyn Goins MD ENDOSCOPY PROCEDURE ORDERABLES F inal Result documented in this encounter Visit Diagnoses Not on filedocumented in this encounter Additional Health Concerns Assessment Noted Time PHQ-9 Depression Total Score: 2 03/14/20 24 10:49 AM EDT documented as of this encounter Care Teams Sweater Designer Relationship Specialty Start Date End Date Momo Verdugo MD PCP - General Family Medicine 02/11/24 Momo Verdugo MD [address] [facility] [place] [address] PCP - [employer] 12/31/24 Mihaela Bruno NP Nurse Practitioner Family Medicine 02/11/24 Kasandra Thomas DO [address] [place] [address] Referring Physician Neurology 02/17/24 documented as of this encounter
--- OUTSIDE RECORDS SUMMARY | 2025-09-13 06:47 | XMS_ITS | Encounter Summary ---
Author Organization [facility] enter Address [address] [place] [address] Care Team Providers Care Director Of Parks And Recreation Name Role Phone Mihaela Bruno CNP Primary Care Provider [phone] Comfort Rivera [facility] Unavailable [phone] Angel Carpio Unavailable Unavailable Te Leigh [facility], PharmD Unavailable Unava ilable Evan White DO Unavailable [phone] Evan White DO Unavailable [phone] Encounter Details Date Type Department Care Team (Late st Contact Info) Description 09/18/2020 Orders Only CLINICAL LAB TISSUE TYPING [facility] [address] [place] [address] Orders, Other Status post kidney transplant Social [...] Assessment Author No 05/10/2020 4:24 AM EDT Selwny Astorga RN * Are you blind or [...] Description 09/20/2025 8:00 AM EDT Office Visit [facility] [address] [place] [address] documented as of this encounter Procedures Procedure [...] for FDA approval.Testing performed by the [facility] Clinical Histocompatibility Laboratory. [facility] number: [id number]. CLIA number: [id number], Director: Carlito Merchant, PhD, D([facility]). Blood Venipuncture / Unknown 09/17/2020 7:15 AM [...] documented as of this encounter Care Teams Director Of Parks And Recreation Relationship Specialty Start Date End Date Mihaela Bruno CNP PCP - General 07/19/18 Comfort Rivera, [facility] [address] [facility] [address] [place] [address] Pharmacist Pharmacist 05/16/20 05/14/22 Angel Carpio Pharmacist Pharmacist 05/16/20 05/14/22 Te Leigh, [facility], PharmD Pharmacist Pharmacist 01/09/2105/14 [place] [address] [place] [address] Infectious Disease Infectious Disease 09/09/23 03/14/24 Evan White DO [address] [place] [address] Infectious Disease Infectious Disease 09/08/24 4 documented as of this encounter
--- OUTSIDE RECORDS SUMMARY | 2025-09-13 06:47 | XMS_ITS | Clinical Summary ---
Author Organization [facility] Address [address] [place] [address] Care Team Providers Care Vp Human Resources Name Role Phone Mihaela Bruno MD Primary Care Provider [phone] Allergies Active Allergy Reactions Criticality Noted Date Comments Shellfish Derived Swelling High 02/08/2019 Patient with lip and tongue swelling. Medications allopurinol (Zyloprim) 100 mg tablet allopurinol 100 mg tablet take 2 tablets by mouth once daily Active aspirin 81 mg EC tablet in the morning. Acti ve famotidine (Pepcid) 20 mg tablet Take 20 mg by mouth twice a day. Active gabapentin (Neurontin) 400 mg capsule gabapentin 400 mg capsule take 1 capsule by mouth at bedtime Active melatonin 3 mg tablet Take 3 mg by mouth if needed each day. Active mycophenolate (Myfortic) 180 mg EC tablet Take 360 mg by mouth every 12 (twelve) hours. 03/10/20 23 Active tacrolimus (Prograf) 0.5 mg capsule Take 0.5 mg by mouth twice a day. 03/10/20 23 Active tamsulosin (Flomax) 0.4 mg 24 hr capsule Take 0.4 mg by mouth in the morning. 06/19/20 22 Active torsemide (Demadex) 20 mg tablet Take 20 mg by mouth in the morning. 01/22/20 24 Active alendronate (Fosamax) 70 mg tablet Take 70 mg by mouth once a week. 03/21/20 25 Active losartan (Cozaar) 50 mg tablet Take 1 tablet by mouth in the morning and at bedtime. Active ondansetron ODT (Zofran-ODT) 4 mg disintegrating tablet Take 4 mg by mouth every 8 (eight) hours if needed. 09/08/20 24 Active tadalafil (Cialis) 10 mg tablet Take 10 mg by mouth if needed each day. 11/22/20 Active amLODIPine (Norvasc) 10 mg tabletIndications: Primary hypertension Take 1 tablet (10 mg) by mouth in the morning. 90 tablet 3 03/22/20 25 026 Active atorvastatin (Lipitor) 20 mg tabletIndications: Coronary artery disease involving kenaitze coronary artery of kenaitze heart without angina pectoris,Mixed hyperlipidemia Take 1 tablet (20 mg) by mouth at bedtime. 90 tablet 3 03/22/20 25 026 Active ergocalciferol (Vitamin D-2) 1.25 MG (86108 Units) capsule Take 50,000 Units by mouth 1 (one) time per week. 03/21/20 025 Active Problems Problem Noted Date Diagnosed Date [...] (04/13/2023): Added automatically from request for surgery [id number] Anemia 10/07/2019 Cardiovascular stress test abnormal 10/07/2019 Chest pain 10/07/2019 Chronic renal failure 10/07/2019 History of gastrointestinal hemorrhage 9 -donor kidney transplant recipient 07/25 Liver transplant candidate 07/24/2019 Hepatic encephalopathy 10/19/2018 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 Overview (04/13/2023): Added automatically from request for surgery [id number] Pre-transplant evaluation for liver transplant 1 12/05/2017 Overview (04/13/2023): Added automatically from request for surgery [id number] Increased ammonia level 06/22/2018 Acute megaloblastic anemia 06/11/2018 Alcoholism 06/11/2018 Anasarca 06/11/2018 Ascites 06/11/2018 Chronic liver disease and cirrhosis 06/11/2018 Overview (04/13/2023): Added automatically from request for surgery [id number] Acute renal failure syndrome 06/11/2018 Metabolic encephalopathy 06/11/2018 Severe protein-calorie malnu trition (Campos: less than 60% of standard weight) 06/11/2018 End-stage renal disease 06/01/2018 Overview (04/13/2023): Added automatically from request for surgery [id number] Family History Medical History Relation Name Comments [...] at Not on file Legal Sex Male 12:06 AM EDT Gender Identity Not on file [...] Medicare Annual Wellness (AWV) 1970 Sigmoidoscopy 1971 Depression Screening 1983 Hepatitis B Vaccines (1 of 3 - 19+ 3-dose series) 1990 Pneumococcal Vaccine: Pediatrics (0 to 5 Years) and At-Risk Patients (6 to 64 Years) (1 of 2 - PCV) 1990 Zoster Vaccines (1 of 2) 1990 Adult Tetanus 1993 COVID-19 Vaccine ( - season) 2025 11/01/2024, 11/03/2023, 11/03/2023, Additional history exists Influenza Vaccine (#1) 2025 , 11/01/2024, 11/03/2023, Additional history exists Colonoscopy 12/26/2034 12/26/2024, 09/20/2019 Colorectal Cancer Screening 12/26/2034 HIB Vaccines Aged Out No longer eligi [...] on patient's age to complete this topic Insurance [employer] MEDICARE ADVANTAGE MEDICAID [place] Care Teams Vp Human Resources Relationship Specialty Start Date End Date Mihaela Bruno MD [address] [place] [address] PCP - General 01/15/23
--- OUTSIDE RECORDS SUMMARY | 2025-09-13 06:47 | XMS_ITS | Encounter Summary ---
Author Organization [facility] Address [address] [place] [address] Care Team Providers Care Entry Rep Name Role Phone Momo Verdugo MD Primary Care Provider [phone] Mihaela Bruno NP Unavailable [phone] MarthaNathanle DO Unavailable [phone] Momo Verdugo MD Unavailable Encounter Details Date Type Department Care Team (Late st Contact Info) Description 09/09/2024 Orders Only [facility] [address] [facility] [place] [address] Clementina Montesinos NP [address] [address] Social History Tobacco Use Types Packs/Day [...] week 02/11/2024 How often do you attend hinduism or yarsani serv ices? Never 02/11/2024 Do you belong to any clubs o r organizations such as hinduism groups, unions, fraternal [...] Recorded Patient Health Questionnaire-2 Score 0 02/11/2024 [facility] of Occupat ional Health - [...] place to sleep or slept in a usp (including now)? No 10/27/2023 Sex and Gender [...] [facility] [place] [facility] [address] [place] [address] Tony Hernandez MD [address] [place] [address] documented as of this encounter Procedures Procedure Name Priority Date/Time Associated Diagnosis Comments SCANNED LABS Routine 09/09/2024 9:22 AM EDT documented in this encounter Results * SCANNED LABS (09/09/2024 9:22 AM EDT) Clementina Montesinos BATTER SCALER LAB CHG PERFORMABLES Final Resul t documented in this encounter Visit Diagnoses Not on filedocumented in this encounter Additional Health Concerns Assessment Noted Time PHQ-9 Depression Total Score: 2 02/11/20 24 10:49 AM EDT documented as of this encounter Care Teams Entry Rep Relationship Specialty Start Date End Date Momo Verdugo MD PCP - General Family Medicine 02/11/24 Momo Verdugo MD [address] [place] [facility] [address] PCP - [employer] 12/31/24 Mihaela Bruno NP Nurse Practitioner Family Medicine 02/11/24 Kasandra Thomas DO [address] [place] [address] Referring Physician Neurology 02/17/24 documented as of this encounter
--- OUTSIDE RECORDS SUMMARY | 2025-09-13 06:47 | XMS_ITS | Encounter Summary ---
Author Organization [facility] Address [address] [place] [address] Care Team Providers Care Hospital Education Coordinator Name Role Phone Momo Verdugo MD Primary Care Provider [phone] Momo Verdugo MD Primary Care Provider [phone] Mihaela Bruno DOUBLE SURFACE OPERATOR Unavailable [phone] Kasandra Thomas DO Unavailable [phone] Momo Verdugo MD Unavailable Encounter Details Date Type Department Care Team (Late st Contact Info) Description 11/03/2023 Abstract [facility] [address] [place] [address] Mihaela Bruno, DOUBLE SURFACE OPERATOR [address] [place] [address] Social History Tobacco Use Types Packs/Day Years [...] week 10/27/2023 How often do you attend orthodoxy or protestant serv ices? Never 10/27/2023 Do you belong to any clubs o r organizations such as orthodoxy groups, unions, fraternal or athletic groups, or [...] and heating? Not hard at all 10/27/2023 [facility] of Occupat ional [...] place to sleep or slept in a longterm (including now)? No 10/27/2023 Sex and Gender [...] Visit [facility] [facility] [address] [place] [address] Tony Hernandez MD [address] [place] [address] documented as of this encounter Visit Diagnoses Not on filedocumented in this encounter Care Teams Hospital Education Coordinator Relationship Specialty Start Date End Date Momo Verdugo MD PCP - General Family Medicine 05/21/23 02/10/24 Momo Verdugo MD PCP - General Family Medicine 02/11/24 Momo Verdugo MD [address] [facility] [place] [address] PCP - [employer] 12/31/24 Mihaela Bruno NP Nurse Practitioner Family Medicine 02/11/24 Kasandra Thomas DO [address] [place] [address] Referring Physician Neurology 02/17/24 documented as of this encounter
--- OUTSIDE RECORDS SUMMARY | 2025-09-13 06:47 | XMS_ITS | Encounter Summary ---
Author Organization [facility] Address [address] [place] [address], [address] [place] [address] Care Team Providers Care Olap Developer Name Role Phone Unavailable Primary Care Provider Unavailabl e Reason for Visit * Reason Comments Medication Refill Encounter Details Date Type Department Care Team (Late st Contact Info) Description 11/08/2019 Refill [facility] [address] [place] [address] [place] [address] Mateo Gilbert MD [address] [facility], [address] [place] [id number] Medication Refill Social History Tobacco Use Types [...]
--- OUTSIDE RECORDS SUMMARY | 2025-09-13 06:47 | XMS_ITS | Encounter Summary ---
Author Organization [facility] Address [address] [place] [address] Care Team Providers Care Electric Lineman Name Role Phone Momo Verdugo MD Primary Care Provider [phone] Mihaela Bruno UPHOLSTERER ASSEMBLY LINE Unavailable [phone] Kasandra Thomas DO Unavailable [phone] Momo Verdugo MD Unavailable Encounter Details Date Type Department Care Team (Latest Contact Info) Description 09/12/2025 Travel Social History Tobacco Use Types Packs/Day Years [...] week 02/06/2025 How often do you attend jain or congregational serv ices? Never 02/06/2025 Do you belong to any clubs o r organizations such as jain groups, unions, fraternal or athletic groups, or [...] Recorded Patient Health Questionnaire-2 Score 0 05/11/2025 [facility] of Occupat ional [facility] - Occupational Stress Questionnaire Answer Date Recorded [...] place to sleep or slept in a detention (including now)? No 10/27/2023 Housing Stability Vital Sign Answer Chris e Recorded In the last 12 months, was t here a time when you were not able to pay the mortgage or rent on time? No 02/06/2025 In the past 12 months, how m any times have you moved where you were living? 0 02/06/2025 At any time in the past 12 m [facility], were you homeless or living in a detention (including now)? No 02/06/2025 Sex and Gender Information Value Date Recorded Sex Assigned at Not on file Legal Sex Male 7:07 PM EDT Gender Identity Not on file Sexual Orientation Not on file documented as of this encounter Plan of Treatment Upcoming Encounters Date Type Department Care Team (Late st Contact Info) Description 09/19/2025 9:30 AM EDT Office Visit [facility] [place] [facility] [address] [place] [address] Tony Hernandez MD [address] [place] [address] documented as of this encounter Visit Diagnoses Not on filedocumented in this encounter Additional Health Concerns Assessment Noted Time PHQ-9 Depression Total Score: 0 05/11/20 25 10:09 AM EDT documented as of this encounter Care Teams Electric Lineman Relationship Specialty Start Date End Date Momo Verdugo MD PCP - General Family Medicine 02/11/24 Momo Verdugo MD [address] [facility] [place] [address] PCP - [employer] 12/31/24 Mihaela Bruno NP Nurse Practitioner Family Medicine 02/11/24 Kasandra Thomas DO [address] [place] [address] Referring Physician Neurology 02/17/24 documented as of this encounter
--- OUTSIDE RECORDS SUMMARY | 2025-09-13 06:47 | XMS_ITS | Encounter Summary ---
Author Organization [facility] Address [address] [facility] [place] [address] Care Team Providers Care Non Profit Director Name Role Phone Momo Verdugo MD Primary Care Provider [phone] Mihaela Bruno NP Unavailable [phone] Kasanrda Thomas DO Unavailable [phone] Momo Verdugo MD Unavailable Encounter Details Date Type Department Care Team (Late st Contact Info) Description 09/05/2024 Clinisync Result Encounter [facility] External Department Unsolicited Mihaela Bruno NP [address] [place] [address] Social History Tobacco Use Types Packs/Day Years [...] week 02/11/2024 How often do you attend anabaptist or christian serv ices? Never 02/11/2024 Do you belong to any clubs o r organizations such as anabaptist groups, unions, fraternal or athletic groups, or [...] Recorded Patient Health Questionnaire-2 Score 0 02/11/2024 [facility] - Occupational Stress Questionnaire Answer Date [...] place to sleep or slept in a chcf (including now)? No 10/27/2023 Sex and Gender [...] [facility] [facility] [address] [place] [address] Tony Hernandez MD [address] [place] [address] documented as of this encounter Procedures Procedure Name Priority Date/Time Associated Diagnosis [facility] CAR[facility]ID [facility]ERY DUPLEX BILATERAL 09/05/2024 11:00 AM EDT documented in this encounter Results * Vascular US carotid artery duplex bilateral (09/05/2024 11:00 AM EDT) Anatomical Region Laterality Modality Neck Ultrasound 09/05/2024 11:0 0 AM EDT Narrative 09/05/2024 11:03 AM EDT The [address] [address] Ultrasound Report Signed Patient: GEORGE STYLES#: [id number] : 1970 Acct:[id number] Age/Sex: 54 / M ADM Date: 09/05/24 Loc: RAD Attending Dr: Mihaela Bruno NP Ordering Physician: Mihaela Bruno NP Date of Service: 09/05/24 Procedure(s): US carotid duplex BI Accession Number(s): [id number] cc: Mihaela Bruno NP [place] [id number] Patient Name: GEORGE STYLES MRN: [id number] date: 1970 Sex: M Assigned Patient Location: [facility] Current Patient Location: [facility] Accession/Order Number: [id number] Exam Date: 09/05/2024 10:22 Report Date: 09/05/2024 [...] Signed By: 09/05/24 1103 DD/ 1100 TD/TT: Shipwright Apprentice: Procedure Note Radiology, Radiologist, MD - 09/05/2024 [place] [address] Ultrasound Report Signed Patient: GEORGE STYLES [facility]#: [id number] : 1970Acct:[id number] Age/Sex: 54 / MADM Date: 09/05/24 Loc: RAD Attending Dr: Mihaela Bruno NP Ordering Physician: Mihaela Bruno NP Date of Service: 09/05/24 Procedure(s): US carotid duplex BI Accession Number(s): [id number] cc: Mihaela Bruno NP The [place] [id number] Patient Name: GEORGE STYLES MRN: [id number] date: 1970 Sex: M Assigned Patient Location: RAD Current Patient Location: RAD Accession/Order Number: [id number] Exam Date: 09/05/2024 10:22 Report Date: 09/05/2024 [...] US Thresholds (Reference: Wilson EG, et al. [id number]; [id number]) Stenosis (%) PSV (cm/sec) VICA/VCCA 0-49 <150 <2.5 50-69 150-225 2.5-4.0 >70 >225 >4.0 Electronically authenticated by: GIAN RODRIGUEZ Date: 09/05/2024 11:00 Dictated By: Gian Rodriguez M.D. Signed By:09/05/24 1103 DD/ 1100 TD/TT: Shipwright Apprentice: us Mihaela Bruno TRUCK DRIVER HEAVY IMG US PROCEDURES Final Result documented in this encounter Visit Diagnoses Not on filedocumented in this encounter Additional Health Concerns Assessment Noted Time PHQ-9 Depression Total Score: 2 02/11/20 10:49 AM EDT documented as of this encounter Care Teams Non Profit Director Relationship Specialty Start Date End Date Momo Verdugo MD PCP - General Family Medicine 02/11/24 Momo Verdugo MD [address] [facility] [place] [address] PCP - [employer] 12/31/24 Mihaela Bruno NP Nurse Practitioner Family Medicine 02/11/24 Kasandra Thomas DO [address] [place] [address] Referring Physician Neurology 02/17/24 documented as of this encounter
--- OUTSIDE RECORDS SUMMARY | 2025-09-13 06:47 | XMS_ITS | Encounter Summary ---
Author Organization [facility] Address [address] [place] [address] Care Team Providers Care Post Anesthesia Care Unit Nurse Name Role Phone Momo Verdugo MD Primary Care Provider [phone] Mihaela Bruno MAILING MANAGER Unavailable [phone] MarthaNathanle DO Unavailable [phone] Momo Verdugo MD Unavailable Encounter Details Date Type Department Care Team (Late st Contact Info) Description 03/10/2025 Orders Only [facility] [address] [place] [address] Tony Hernandez MD [address], [address] [place] [address] Social History Tobacco Use Types Packs/Day Years [...] week 02/06/2025 How often do you attend samaritan or jewish serv ices? Never 02/06/2025 Do you belong to any clubs o r organizations such as samaritan groups, unions, fraternal or athletic groups, or [...] Recorded Patient Health Questionnaire-2 Score 0 02/11/2024 [facility] [place] of Occupat ional Health - Occupational Stress [...] place to sleep or slept in a long-term (including now)? No 10/27/2023 Housing Stability Vital Sign Answer Chris e Recorded In the last 12 months, was t here a time when you were not able to pay the mortgage or rent on time? No 02/06/2025 In the past 12 months, how m any times have you moved where you were living? 0 02/06/2025 At any time in the past 12 m [facility], were you homeless or living in a long-term (including now)? No 02/06/2025 Sex and Gender [...] [facility] [address] [place] [address] Tony Hernandez MD [address] [place] [address] documented as of this encounter Procedures Procedure [...] documented as of this encounter Care Teams Post Anesthesia Care Unit Nurse Relationship Specialty Start Date End Date Momo Verdugo MD PCP - General Family Medicine 02/11/24 Momo Verdugo MD [address] [facility] [place] [address] PCP - [employer]et[employer] 12/31/24 Mihaela Bruno NP Nurse Practitioner Family Medicine 02/11/24 Kasandra Thomas DO [address] [place] [address] Referring Physician Neurology 02/17/24 documented as of this encounter
--- OUTSIDE RECORDS SUMMARY | 2025-09-13 06:47 | XMS_ITS | Encounter Summary ---
Author Organization [facility] Address [address] [place] [address] Care Team Providers Care Mechanical Maintenance Supervisor Name Role Phone Momo Verdugo MD Primary Care Provider [phone] Mihaela Bruno EXECUTIVE CHEF Unavailable [phone] MarthaNathanle DO Unavailable [phone] Momo Verdugo MD Unavailable Reason for Visit * Reason Comments Med Refill Encounter Details Date Type Department Care Team (Late st Contact Info) Description 09/07/2025 Refill [facility] [address] [place] [address] Tony Hernandez MD [address] [place] [address] Other osteoporosis without current pathological fracture; Vitamin [...] week 02/06/2025 How often do you attend baptism or jainism serv ices? Never 02/06/2025 Do you belong to any clubs o r organizations such as baptism groups, unions, fraternal [...] Recorded Patient Health Questionnaire-2 Score 0 05/11/2025 [facility] of Occupat ional Health - Occupational Stress [...] time in the past 12 m [facility], were you homeless or living in a [facility] (including now)? No 02/06/2025 Sex and Gender Information Value Date Recorded Sex Assigned at Not on file Legal Sex Male 7:07 PM EDT Gender Identity Not on file Sexual Orientation Not on file documented as of this encounter Miscellaneous Notes * Telephone Encounter - Radha Cardona LPN - 09/08/2025 8:49 AM EDT MEDICATION SENT TO PHARMACY. documented in this encounter Plan of Treatment Upcoming Encounters Date Type Department Care Team (Late st Contact Info) Description 09/19/2025 9:30 AM EDT Office Visit [facility] [address] [place] [address] Tony Hernandez MD [address] [place] [address] documented as of this encounter Visit Diagnoses Diagnosis Other osteoporosis without current pathological fracture Vitamin D deficiency documented in this encounter Additional Health Concerns Assessment Noted Time PHQ-9 Depression Total Score: 0 05/11/20 25 10:09 AM EDT documented as of this encounter Care Teams Mechanical Maintenance Supervisor Relationship Specialty Start Date End Date Momo Verdugo MD PCP - General Family Medicine 02/11/24 Momo Verdugo MD [address] [facility] [place] [address] PCP - [employer] 12/31/24 Mihaela Bruno NP Nurse Practitioner Family Medicine 02/11/24 Kasandra Thomas DO [address] [place] [address] Referring Physician Neurology 02/17/24 documented as of this encounter
--- OUTSIDE RECORDS SUMMARY | 2025-09-13 06:47 | XMS_ITS | Encounter Summary ---
Author Organization [facility] Address [address] [facility] [place] [address] Care Team Providers Care Supervisor Pipeline Name Role Phone Momo Verdugo MD Primary Care Provider [phone] Mihaela Bruno NP Unavailable [phone] Kasandra Thomas DO Unavailable [phone] Momo Verdugo MD Unavailable Encounter Details Date Type Department Care Team (Late st Contact Info) Description 09/05/2024 Clinisync Result Encounter [facility] External Department Unsolicited Mihaela Bruno NP [address] [place] [address] Social History Tobacco Use Types Packs/Day Years [...] week 02/11/2024 How often do you attend anabaptism or anabaptism serv ices? Never 02/11/2024 Do you belong to any clubs o r organizations such as anabaptism groups, unions, fraternal or athletic groups, or [...] Recorded Patient Health Questionnaire-2 Score 0 02/11/2024 [facility] - Occupational Stress Questionnaire Answer [...] in a residential (including now)? No 10/27/2023 Sex and Gender Information Value Date Recorded Sex Assigned at Not on file Legal Sex Male 7:07 PM EDT Gender Identity Not on file Sexual Orientation Not on file documented as of this encounter Plan of Treatment Upcoming Encounters Date Type Department Care Team (Late st Contact Info) Description 09/19/2025 9:30 AM EDT Office Visit [facility] [address] [place] [address] Tony Hernandez MD [address] [place] [address] documented as of this encounter Procedures Procedure Name Priority Date/Time Associated Diagnosis Comments XR DEXA AXIAL SKELETON 09/05/2024 11:21 AM EDT documented in this encounter Results * XR DEXA AXIAL SKELETON (09/05/2024 11:21 AM EDT) Anatomical Region Laterality Modality Other 09/05/2024 11:2 1 AM EDT Narrative 09/05/2024 11:23 AM EDT The [address] [address] XRay Report Signed Patient: GEORGE STYLES MR#: [id number] : 1970 Acct:[id number] Age/Sex: 54 / M ADM Date: 09/05/24 Loc: [facility] Attending Dr: Mihaela Bruno NP Ordering Physician: Mihaela Bruno NP Date of Service: 09/05/24 Procedure(s): XR DEXA axial skeleton Accession Number(s): [id number] cc: Mihaela Bruno NP [place] [id number] Patient Name: GEORGE STYLES MRN: TBH:[id number] date: 1970 Sex: M Assigned Patient Location: [facility] Current Patient Location: [facility] Accession/Order Number: [id number] Exam Date: 09/05/2024 10:30 Report Date: 09/05/2024 [...] prevention and treatment of osteoporosis. Osteoporos Int. 2021;33(10):1402-0325. doi: 10.1007/f36645-645-56055-y. Epub 2021Mar 27. Erratum in: Osteoporos Int. 2021Jun 26;: PMID: [id number]; PMCID: [id number]. Electronically authenticated by: GIAN RODRIGUEZ Date: 09/05/2024 11:21 Dictated By: Gian Rodriguez M.D. Signed By: 09/05/24 1123 DD/ 1121 TD/TT: Deoiling Machine Operator: Procedure Note Radiology, Radiologist, - 09/05/2024 [place] [address] XRay Report Signed Patient: GEORGE STYLES AMR#: [id number] : 1970Acct:[id number] Age/Sex: 54 / MADM Date: 09/05/24 Loc: RAD Attending Dr: Mihaela Bruno NP Ordering Physician: Mihaela Bruno NP Date of Service: 09/05/24 Procedure(s): XR DEXA axial skeleton Accession Number(s): [id number] cc: Mihaela Bruno NP The [place] [id number] Patient Name: GEORGE STYLES MRN: [facility]:[id number] date: 1970 Sex: M Assigned Patient Location: RAD Current Patient Location: RAD Accession/Order Number: [id number] Exam Date: 09/05/2024 10:30 Report Date: 09/05/2024 11:21 At the request of: MIHAELA Magalie SUMMERSLydiaNINO Procedure: XR DEXA axial skeleton EXAMINATION: XR [...] 10-year hip fracture risk >= 3% or [id number] major osteoporosis-related fracture risk >= 20% (i.e., [...] to prevention and treatment of osteoporosis.Osteoporos Int. 2021;33(10):1097-8775. doi: 10.1007/a04044-925-97865-i. Epub . Erratum in: Osteoporos Int. 2021Jun 26;: PMID: [id number]; PMCID: [id number]. Electronically authenticated by: GIAN RODRIGUEZ Date: 09/05/2024 11:21 Dictated By: Gian Rodriguez M.D. Signed By:09/05/24 1123 DD/ 1121 TD/TT: Deoiling Machine Operator: us Mihaela Bruno NP [facility] Final Result documented in this encounter Visit Diagnoses Not on filedocumented in this encounter Additional Health Concerns Assessment Noted Time PHQ-9 Depression Total Score: 2 02/11/20 10:49 AM EDT documented as of this encounter Care Teams Supervisor Pipeline Relationship Specialty Start Date End Date Momo Verdugo MD PCP - General Family Medicine 02/11/24 Momo Verdugo MD [address] [place] [address] PCP - [employer] 12/31/24 Mihaela Bruno NP Nurse Practitioner Family Medicine 02/11/24 Kasandra Thomas DO [address] [place] [address] Referring Physician Neurology 02/17/24 documented as of this encounter
--- OUTSIDE RECORDS SUMMARY | 2025-09-13 06:47 | XMS_ITS | Encounter Summary ---
Author Organization [facility] Address [address] [facility] [place] [address] Care Team Providers Care Reel System Operator Name Role Phone Momo Verdugo MD Primary Care Provider [phone] Mihaela Bruno NP Unavailable [phone] Kasandra Thomas DO Unavailable [phone] Momo Verdugo MD Unavailable Reason for Visit * Reason Onset Date Comments Med Refill 01/31/2025 Encounter Details Date Type Department Care Team (Late st Contact Info) Description 01/31/2025 Refill [facility]ODRIG[facility] [address] [place] [address] Mihaela Bruno NP [address] [place] [address] Primary hypertension Social History Tobacco Use Types [...] week 02/11/2024 How often do you attend confucianist or sabianism serv ices? Never 02/11/2024 Do you belong to any clubs o r organizations such as confucianist groups, unions, fraternal [...] Recorded Patient Health Questionnaire-2 Score 0 02/11/2024 [facility] of Occupat ional Health - [...] place to sleep or slept in a fdc (including now)? No 10/27/2023 Sex and Gender Information Value Date Recorded Sex Assigned at Not on file Legal Sex Male 7:07 PM EDT Gender Identity Not on file Sexual Orientation Not on file documented as of this encounter Plan of Treatment Upcoming Encounters Date Type Department Care Team (Late st Contact Info) Description 09/19/2025 9:30 AM EDT Office Visit [facility] [address] [place] [address] Tony Hernandez MD [address] [place] [address] documented as of this encounter Visit Diagnoses Diagnosis Primary hypertension Unspecified essential hypertension documented in this encounter Additional Health Concerns Assessment Noted Time PHQ-9 Depression Total Score: 2 02/11/20 24 10:49 AM EDT documented as of this encounter Care Teams Reel System Operator Relationship Specialty Start Date End Date Momo Verdugo MD PCP - General Family Medicine 02/11/24 Momo Verdugo MD [address] [place] [address] PCP - [employer] 12/31/24 Mihaela Bruno NP Nurse Practitioner Family Medicine 02/11/24 Kasandra Thomas DO [address] [place] [address] Referring Physician Neurology 02/17/24 documented as of this encounter
--- OUTSIDE RECORDS SUMMARY | 2025-09-13 06:48 | XMS_ITS | Encounter Summary ---
Author Organization [facility] enter Address [address] [place] [address] Care Team Providers Care Pipeline Systems Operator Name Role Phone Mihaela Bruno CNP Primary Care Provider [phone] Comfort Rivera [facility] Unavailable [phone] Carpio Unavailable Unavailable Te Leigh [facility], PharmD Unavailable Unava ilable Evan White DO Unavailable [phone] Evan White DO Unavailable [phone] Encounter Details Date Type Department Care Team (Late st Contact Info) Description 02/17/2020 Documentation Only CLINICAL LAB TISSUE TYPING [facility] [address] [place] [address] Orders, Other Social History Tobacco Use Types [...] Visit [facility] [address] [place] [address] 11th [place] [address] documented as of this encounter Visit Diagnoses [...] documented as of this encounter Care Teams Pipeline Systems Operator Relationship Specialty Start Date End Date Mihaela Bruno, BALE BREAKER OPERATOR PCP - General 07/19/18 Comfort Rivera, [facility] [address] [facility] [address] [place] [address] Pharmacist Pharmacist 05/16/20 05/14/22 Angel Carpio Pharmacist Pharmacist 05/16/20 05/14/22 Te Leigh [facility], PharmD Pharmacist Pharmacist 01/09/2105/14 Evan White DO [address] [id number] Infectious Disease Infectious Disease 09/09/23 03/14/24 Evan White DO [address] [place] [address] Infectious Disease Infectious Disease 09/08/24 4 documented as of this encounter
--- OUTSIDE RECORDS SUMMARY | 2025-09-13 06:48 | XMS_ITS | Encounter Summary ---
Author Organization [facility] Address [address] [place] [address] Care Team Providers Care National Sales Consultant Name Role Phone Mihaela Bruno CNP Primary Care Provider Comfort Rivera [facility] Unavailable [phone] Carpio Unavailable Unavailable Te Leigh [facility], PharmD Unavailable Unava ilable Evan White DO Unavailable Evan White DO Unavailable [phone] Encounter Details Date Type Department Care Team (Late st Contact Info) Description 10/13/2019 [place] [facility] [address] 11th [place] [address] Sophie Cray, SAMI Social History Tobacco Use Types Packs/Day [...] 8:00 AM EDT Office Visit [facility] [place] [facility] [address] 11th [place] [address] documented as of this encounter [...] documented as of this encounter Care Teams National Sales Consultant Relationship Specialty Start Date End Date Mihaela Bruno, ROUTER OPERATOR PIN PCP - General 07/19/18 Comfort Rivera [facility] [address] [place] [address] [address] [place] [phone] Pharmacist Pharmacist 05/16/20 05/14/22 Angel Carpio Pharmacist Pharmacist 05/16/20 05/14/22 Te Leigh, [facility], PharmD Pharmacist Pharmacist 01/09/2105/14 Evan White DO [address] [place] [address] Infectious Disease Infectious Disease 09/09/23 03/14/24 Evan White DO [address] [place] [address] Infectious Disease Infectious Disease 09/08/24 4 documented as of this encounter
--- OUTSIDE RECORDS SUMMARY | 2025-09-13 06:48 | XMS_ITS | Encounter Summary ---
Author Organization [facility] Address [address] [place] [address] Care Team Providers Care Software Implementation Project Manager Name Role Phone Mihaela Bruno CNP Primary Care Provider Comfort Rivera [facility] Unavailable [phone] Carpio Unavailable Unavailable Te Leigh [facility], PharmD Unavailable Unava ilable Evan White DO Unavailable [phone] Evan White DO Unavailable [phone] Encounter Details Date Type Department Care Team (Late st Contact Info) Description 11/29/2019 Orders Only CLINICAL LAB TISSUE TYPING [facility] [address] [place] [address] Orders, Other Pre-transplant evaluation for kidney transplant [...] AM EDT Office Visit [facility] [address] [place] [address] 11th [place] [address] documented as of this encounter Visit Diagnoses [...] documented as of this encounter Care Teams Software Implementation Project Manager Relationship Specialty Start Date End Date Mihaela Bruno, ROB PCP - General 07/19/18 Comfort Rivera [facility] [address] [facility] [address] [place] [phone] Pharmacist Pharmacist 05/16/20 05/14/22 Angel Carpio Pharmacist Pharmacist 05/16/20 05/14/22 Te Leigh, [facility], PharmD Pharmacist Pharmacist 01/09/2105/14 Evan White DO [address] [place] [address] Infectious Disease Infectious Disease 09/09/23 03/14/[place] [address] [place] [address] Infectious Disease Infectious Disease 09/08/24 4 documented as of this encounter
--- OUTSIDE RECORDS SUMMARY | 2025-09-13 06:48 | XMS_ITS | Encounter Summary ---
Author Organization [facility] Address [address] [place] [address] Care Team Providers Care Arboriculturist Name Role Phone Momo Verdugo MD Primary Care Provider [phone] Momo Verdugo MD Primary Care Provider [phone] Mihaela Bruno NP Unavailable [phone] Kasandra Thomas DO Unavailable [phone] Momo Verdugo MD Unavailable Encounter Details [...] week 10/27/2023 How often do you attend buddhism or confucianist serv ices? Never 10/27/2023 Do you belong to any clubs o r organizations such as buddhism groups, unions, fraternal or athletic groups, or [...] and heating? Not hard at all 10/27/2023 [facility] of Occupat ional Health - Occupational [...] Visit [facility] [address] [place] [address] Tony Hernandez MD [address] [place] [address] documented as of this encounter Procedures Procedure Name Priority Date/Time Associated Diagnosis Comments MR HEAD/BRAIN WO CON 11/10/2023 2:58 PM EST documented in this encounter Results * MR HEAD/BRAIN WO CON (11/10/2023 2:58 PM EST) Anatomical Region Laterality Modality Other 11/10/2023 2:58 PM EST Narrative 11/10/2023 3:01 PM EST The [address] [address] Magnetic Resonance Report Signed Patient: GEORGE STYLES MR#: [id number] : 1970 Acct:[id number] Age/Sex: 53 / M ADM Date: 11/10/23 Loc: MRI Attending Dr: CAESAR TEIXEIRA Ordering Physician: CAESAR TEIXEIRA Date of Service: 11/10/23 Procedure(s): MR head/brain wo con Accession Number(s): [id number] cc: Mihaela Bruno CREDIT DIRECTOR; CAESAR TEIXEIRA [place] [address] Patient Name: GEORGE STYLES MRN: [id number] date: 1970 Sex: M Assigned Patient Location: MRI Current Patient Location: MRI Accession/Order Number: [id number] Exam Date: 11/10/2023 13:00 Report Date: 11/10/2023 [...] By: ORESTES GARIBAY M.D. Signed By: 11/10/23 150 DD/ 4905 TD/TT: Shot Polisher: Procedure Note Radiology, Radiologist, MD - 11/10/2023 [place] [address] Magnetic Resonance Report Signed Patient: GEORGE STYLES AMR#: [id number] : 1970Acct:[id number] Age/Sex: 53 / MADM Date: 11/10/23 Loc: MRI Attending Dr: CAESAR TEIXEIRA Ordering Physician: CAESAR TEIXEIRA Date of Service: 11/10/23 Procedure(s): MR head/brain wo con Accession Number(s): [id number] cc: Mihaela Bruno CREDIT DIRECTOR; CAESAR TEIXEIRA The [place] [address] Patient Name: GEORGE STYLES MRN: [id number] date: 1970 Sex: M Assigned Patient Location: MRI Current Patient Location: MRI Accession/Order Number: [id number] Exam Date: 11/10/2023 13:00 Report Date: 11/10/2023 [...] and periventricular white matter, which appear stable [id number]. Statistically, these are most likely based on [...] Dictated By: ORESTES GARIBAY M.D. Signed By:11/10/23 8216 DD/ 9863 TD/TT: Shot Polisher: us Generic External Data Provider [facility] Final Result documented in this encounter Visit Diagnoses Not on filedocumented in this encounter Care Teams Arboriculturist Relationship Specialty Start Date End Date Momo Verdugo MD PCP - General Family Medicine 05/21/23 02/10/24 Momo Verdugo MD PCP - General Family Medicine 02/11/24 Momo Verdugo MD [address] [place] [address] PCP - [employer]et[employer] 12/31/24 Mihaela Bruno NP Nurse Practitioner Family Medicine 02/11/24 Kasandra Thomas DO [address] [place] [address] Referring Physician Neurology 02/17/24 documented as of this encounter
--- OUTSIDE RECORDS SUMMARY | 2025-09-13 06:48 | XMS_ITS | Encounter Summary ---
Author Organization [facility] enter Address [address] [place] [address] Care Team Providers Care Home Care Music Therapist Name Role Phone Mihaela Bruno CNP Primary Care Provider [phone] Comfort Rivera [facility] Unavailable [phone] Angel Carpio Unavailable Unavailable Te Leigh [facility], PharmD Unavailable Unava ilable Evan White DO Unavailable [phone] Evan White DO Unavailable [phone] Encounter Details Date Type Department Care Team (Late st Contact Info) Description 02/17/2020 Documentation Only CLINICAL LAB TISSUE TYPING [facility] [address] [place] [address] Orders, Other Social History Tobacco Use Types [...] Visit [facility] [address] [place] [address] 11th [place] [address] documented as of this encounter Visit Diagnoses [...] documented as of this encounter Care Teams Home Care Music Therapist Relationship Specialty Start Date End Date Mihaela Bruno, CHALK EXTRUDING MACHINE OPERATOR PCP - General 07/19/18 Comfort Rivera, [facility] [address] [facility] [address] [place] [address] Pharmacist Pharmacist 05/16/20 05/14/22 Angel Carpio Pharmacist Pharmacist 05/16/20 05/14/22 Te Leigh [facility], PharmD Pharmacist Pharmacist 01/09/2105/14 Evan White DO [address] [phone] Infectious Disease Infectious Disease 09/09/23 03/14/24 Evan White DO [address] [place] [address] Infectious Disease Infectious Disease 09/08/24 4 documented as of this encounter
--- OUTSIDE RECORDS SUMMARY | 2025-09-13 06:48 | XMS_ITS ---
Author Organization [facility] Address [address] [place] [address] [place] [address] Care Team Providers Care Radiation Control Specialist Name Role Phone Mihaela Bruno CNP Primary Care Provider [phone] Advanced Refill Program Status:Enrolled (Active) Start date:06/21/2025 Enrollment date:06/21/2025 Current support & services provided:Specialty Pharmacy - Refill Management Linked medications:Mycophenolate Sodium (Active), Tacrolimus (Active) Continued Care and Services Coordination
--- OUTSIDE RECORDS SUMMARY | 2025-09-13 06:48 | XMS_ITS | Clinical Summary ---
Author Organization [facility] Address [address] [place] [address] [place] [address] Care Team Providers Care Materials Management Clerk Name Role Phone Mihaela Bruno CNP Primary Care Provider [phone] Allergies Active Allergy Reactions Criticality Noted Date [...] the counter going forward. 30 tablet 0 2:22 PM EST 10/08/20 20 Active faMOTIdine 20 MG tablet Take 1 tablet by mouth 2 times daily. Active polyethylene glycol 17 g Pack packet Take 1 packet by mouth daily as needed. Active ondansetron 4 MG tablet Take 1 tablet by mouth every 8 hours as needed for Nausea / Vomiting. Active Gabapentin 400 MG capsule Take 1 capsule by mouth at bedtime. 06/07/20 23 Active Allopurinol 100 MG tabletIndicati ons:Abnormal blood chemistry Take 2 tablets by mouth daily. 180 tablet 1 02/25/20 25 Active Sulfamethoxazo le-trimethopri m 800-160 MG per tablet Take 1 tablet by mouth 3 times weekly. 12 tablet 5 03/23/20 25 026 Active Tacrolimus (PROGRAF) 0.5 MG capsule Take 1 capsule by mouth every morning and take 1 capsule by mouth every evening. 60 capsule 5 5 1:44 PM EDT 03/23/20 25 Active Mycophenolate sodium (MYFORTIC) [address] tablet DR Take 1 tablet by mouth every 12 hours. 60 tablet 5 5 1:44 PM EDT 04/20/20 25 Active Tamsulosin HCl 0.4 MG capsule Take 1 capsule by mouth 2 times daily. 09/08/20 24 025 Active Atorvastatin 20 MG tablet Take 1 tablet by mouth at bedtime. Active amLODIPine 10 MG tablet Take 1 tablet by mouth daily every morning. Active Ergocalciferol 1.25 MG (51158 UT) capsule Take 1 capsule by mouth once a week. Active alendronate 70 MG tablet Take 1 tablet by mouth every 7 days. Active tadalafil 10 MG tablet Take 1 tablet by mouth as needed for Erectile Dysfunction. Active ursodiol 300 MG capsule Take 2 capsules by mouth every 12 hours. 120 capsule 5 08/11/20 25 Active Torsemide 20 MG tablet TAKE 1 TABLET BY MOUTH DAILY 30 tablet 09/11/20 25 Active Torsemide 20 MG tablet TAKE 1 TABLET BY MOUTH DAILY 90 tablet 1 03/23/20 25 025 Discontinued Active Problems Problem Noted Date Diagnosed Date Heart failure, diastolic, acute 01/20/2024 Pleural effusion on right 01/16/2024 Histoplasmosis 09/10/2023 FAYE (acute kidney injury) 05/15/2022 S/P liver transplant 05/10/2020 Nausea & vomiting 05/10/2020 Chronic liver disease and cirrhosis 04/12/2020 Overview (04/12/2020): Added automatically from request for surgery [id number] Liver failure 04/09/2020 Obesity: body mass index of 30.0-34.9 04/09/2020 Liver transplant recipient 04/08/2020 Overview (04/08/2020): Added automatically from request for surgery [id number] -donor kidney transplant recipient 07/25 ESRD (end stage renal disease) 07/24/2019 Overview (07/24/2019): Added automatically from request for surgery [id number] Liver transplant candidate 07/24/2019 Hepatic encephalopathy 10/19/2018 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 Overview (10/05/2018): Added automatically from request for surgery [id number] Pre-transplant evaluation for liver transplant 1 12/05/2017 Overview (10/05/2018): Added automatically from request for surgery [id number] End stage renal disease 06/01/2018 Essential hypertension, benign CAD (coronary artery disease) Resolved Problems Problem Noted Date Diagnosed Date Resolved Date Fever 08/28/2023 09/10/2023 Encounters Date Type Department Care Team Description 09/11/2025 Refill [facility] [address] [place] [address] Christiane Ramsey MD 08/28/2025 Specialty Pharmacy [facility] [address] [place], [place] [address] [address] [address] Comfort Rivera, LTAC, [facility] 08/11/2025 10:30 AM EDT Office Visit [facility] [address] [place], [place] [address] [address], [place] [address] Rebeca Gutierrez, SWORD SWALLOWER-SOCIAL SERVICES COORDINATOR Kidney replaced by transplant (Primary Dx) 08/11/2025 Telephone [facility] [address], [place] [address] Anayeli Arana, RN Orders; Follow-up 07/24/2025 Specialty Pharmacy [facility] [address] [place], [place] [address] [address] [address] Meka Munoz, LTAC, [facility] 07/12/2025 Results Follow-Up [facility] [address], [place] [address] Anayeli Arana, RN TACROLIMUS LEVEL(TROUGH),ELVIE DOBSON 06/27/2025 Specialty Pharmacy [facility] [address] [facility] [address] [address] Miranda Martinez, LTAC, [facility] 06/22/2025 Telephone [facility] [address], [place] [address] Genoveva Prabhakar Appointment from Last 3 Months Family History Medical [...] Sign Reading Time Taken Comments Blood Pressure 130/81 08/11/2025 10:33 AM EDT Pulse 102 08/11/2025 10:33 AM EDT Temperature 37 C (98.6 F) 08/11/2025 10:33 AM EDT Respiratory Rate 20 02/26/2024 9:06 AM EDT Oxygen Saturation 97% 02/26/2024 9:06 AM EDT Inhaled Oxygen Concentration - - Weight 93.8 kg (206 lb 14.4 oz) 025 10:33 AM EDT Height 170.2 cm (5' 7 ) 08/11/2025 10:3 3 AM EDT Body Mass Index 32.41 08/11/2025 10:33 AM EDT Plan of Treatment Upcoming Encounters Date Type Department Care Team (Late st Contact Info) Description 09/20/2025 8:00 AM EDT Office Visit [facility] [address] [place] [address] Health Maintenance Due Date Last Done Comments TETANUS 1970 PNEUMOCOCCAL VACCINE SERIES (1 of 2 - PCV) 1990 TDAP (ADULT) 1990 ZOSTER (SHINGLES) VACCINE (1 of 2) 1990 COLORECTAL CANCER SCREENING DISCUSSION 09/20/2020 09/20/2019, 07/28/2018 COVID-19 VACCINE (2 - Modern a risk series) 12/01/2023 11/03/2023, 09/30/2021, 02/21/2021, Additional history exists LIPID SCREENING 03/22/2024 03/22/2019 INFLUENZA VACCINE (#1) 2025 , 11/03/2023, 08/28/2022, Additional history exists POTASSIUM 07/05/2026 07/05/2025, 06/0 01/2025, 03/07/2025, Additional history exists PROSTATE CANCER SCREENING DISCUSSION Discontinued 10/12/2018 HEPATITIS C VIRUS SCREENING Completed 03/30, 04/09/2020, 07/24/2019, Additional history exists LUNG CANCER SCREENING Discontinued 08/31/2023 HIV SCREENING DISCUSSION Completed 023, 04/09/2020, 07/24/2019, Additional history exists Medical Devices Implanted Type Area Adjunct Faculty For Medical Terminology Device Identifier Shelf Expiration Date Model / Serial / Lot Stent [place] 7 X 20 - [id number] Implanted:Qty: 1 on 04/12/2020 by Renee Rivera MBBS at [facility] Explanted:2019 (Quantity not on file) N/A: Ureter [employer]ARD [employer] 10/23/2020 [id number] / / [id number] Catheter Drainage 10.2fr 25cm Percutaneous Meño - [id number] Implanted:Qty: 1 on 05/17/2022 by Enzo Heart DO at [facility] Right: Kidney [facility] [id number] 01/22/2025 [id number] / / [id number] Description:Implant time-out completed by intra-procedural staff including this RN, electronics engineering technician, and performing physician. The following was completed. RN reads out loud implant type/size/ expiration date, and verbalizes location. Holds package up to tech to visually verify implant details. Tech reads back package details MD verifies verbally correct implant Time-out was completed for each coil during embolization, if applicable. Procedures Procedure Name Priority Date/Time Associated Diagnosis Comments DBILI & TBILI,AST,ALT,GGT,A LK PHOS,ALB,MANUAL ENTER Routine 07/05/2025 7:05 AM EDT CHEM 7 PANEL, MANUAL ENTER Routine 07/05/2025 7:05 AM EDT ESTIMATED GFR, , MANUAL ENTER Routine 07/05/2025 7:05 AM EDT ESTIMATED GFR, NON AMER, MANUAL ENTER Routine 07/05/2025 7:05 AM EDT CA, MG, PO4, MANUAL ENTER Routine 07/05/2025 7:05 AM EDT CBC, DIFF, PLATELET, MANUAL ENTER Routine 07/05/2025 7:05 AM EDT TACROLIMUS LEVEL(TROUGH),MANUA L ENTER Routine 07/04/2025 7:05 AM EDT HIV 1 AND 2 ANTIBODIES/P24 ANTIGEN Routine [...] * ESTIMATED GFR, NON AMER, MANUAL ENTER (07/05/2025 7:05 AM EDT) Pathologist [facility] ESTIMATED GFR, NON AMER, MANUAL ENTER >60 [facility], [facility] 07/05/2025 7:05 AM EDT us Other Other LAB SEND OUTS Final Result Performing Organization Address [facility] de Phone Number LAB, [facility] [address] [place] [address] * ESTIMATED GFR, , MANUAL ENTER (07/05/2025 7:05 AM EDT) [facility] ESTIMATED GFR, , MANUAL ENTER >60 LAB, [facility] 07/05/2025 7:05 AM EDT us Other Other LAB SEND OUTS Final Result Performing Organization Address [facility] de Phone Number LAB, [facility] [address] [place] [address] * CBC, DIFF, PLATELET, MANUAL ENTER (07/05/2025 7:05 AM EDT) Pathologist [facility] BANDS (DIFF), MANUAL ENTER [facility], [facility] BASOPHIL (DIFF), MANUAL ENTER 0.6 [facility] EOSINOPHIL (DIFF), MANUAL ENTER 3.6 LAB, [facility] HEMATOCRIT (HCT), MANUAL ENTER 45.9 [facility], [facility] Hemoglobin (HGB), MANUAL ENTER 15.7 [facility], [facility] LYMPHOCYTES (DIFF), MANUAL ENTER 32.8 LAB, [facility] MONOCYTE (DIFF), MANUAL ENTER 9.3 LAB, [facility] NEUTROPHILS (DIFF), MANUAL ENTER 53.5 [facility], [facility] PLATELETS, MANUAL ENTER 228 [facility], [facility] WBC, MANUAL ENTER 5.1 [facility], [facility] 07/05/2025 7:05 AM EDT us Other Other LAB SEND OUTS Final Result Performing Organization Address [facility]/ZIP Co de Phone Number [facility] [address] [place] [address] * DBILI & TBILI,AST,ALT,GGT,ALK PHOS,ALB,MANUAL ENTER (07/05/2025 7:05 AM EDT) ALBUMIN, MANUAL ENTER 4.0 [facility], [facility] ALKALINE PHOSPHATASE, MANUAL ENTER 114 [facility] ALT, MANUAL ENTER 33 [facility] AST, MANUAL ENTER 20 LAB, [facility] Bilirubin Direct, Manual Enter 0.2 LAB, [facility] Bilirubin, Total, MANUAL ENTER 0.9 [facility], [facility] GGT, MANUAL ENTER 21 [facility], [facility] 07/05/2025 7:05 AM EDT us Other Other LAB SEND OUTS Final Result Performing Organization Address [facility] Co de Phone Number [facility] [address] [place] [address] * CA, MG, PO4, MANUAL ENTER (07/05/2025 7:05 AM EDT) CALCIUM (CA), MANUAL ENTER 9.5 [facility], [facility] Phosphate (PO4), Manual Enter 2.5 LAB, [facility] MAGNESIUM (MG), MANUAL ENTER 1.8 [facility], [facility] 07/05/2025 7:05 AM EDT us Other Other LAB SEND OUTS Final Result Performing Organization Address [facility] Co de Phone Number [facility] [address] [place] [address] * CHEM 7 PANEL, MANUAL ENTER (07/05/2025 7:05 AM EDT) Blood Urea Nitrogen (BUN), MANUAL ENTER 21 [facility], [facility] Chloride (CL), MANUAL ENTER 106 [facility], [facility] Carbon Diox(CO2), MANUAL ENTER 28.1 [facility], [facility] CREATININE, SERUM, MANUAL ENTER 1.12 [facility], [facility] GLUCOSE, MANUAL ENTER 118 [facility] POTASSIUM (K+), MANUAL ENTER 3.6 [facility], [facility] SODIUM (NA), MANUAL ENTER 141 mmol/L LAB, [facility] 07/05/2025 7:05 AM EDT us Other Other LAB SEND OUTS Final Result Performing Organization Address [facility] Phone Number LAB, [facility] [address] [place] [address] * TACROLIMUS LEVEL(TROUGH),MANUAL ENTER (07/04/2025 7:05 AM EDT) TACROLIMUS LEVEL(TROUGH),MA NUAL ENTER 5.2 [facility], [facility] 07/04/2025 7:05 AM EDT us Other Other LAB SEND OUTS Final Result Performing Organization Address [facility] Phone Number LAB, [facility] [address] [place] [address] * HIV 1 AND 2 ANTIBODIES/P24 ANTIGEN (09/02/2023 5:33 AM EDT) HIV-1/HIV-2 Ab With p24 Antigen Non Reactive Non Reactive 09/02/2023 9:35 AM EDT [facility] Blood Venipuncture / Unknown 09/02/2023 5:33 AM EDT 09/02/2023 6:02 AM EDT us Reese Sage MD IMMUNOLOGY ORDERABLES Final Re sult Performing Organization Address [facility] de Phone Number [facility] [address] [place] [address] * CT CHEST WITHOUT CONTRAST (08/31/2023 11:25 [...] Ag Negative Negative 04/12/2020 5:50 PM EDT [facility] Hep B Core Ab,Total (IgG+IgM) Negative Negative 04/12/2020 5:50 PM EDT [facility] Hep B Core IgM Ab Negative Negative 04/12/2020 5:50 PM EDT [facility] Hepatitis A IgM Ab Negative Negative 04/12/2020 5:50 PM EDT [facility] Hepatitis C Antibody Negative Negative 04/12/2020 5:50 PM EDT [facility] Blood Venipuncture / Unknown 04/12/2020 3:37 PM EDT 04/12/2020 3:48 PM EDT Renee LEIGH IMMUNOLOGY ORDERABLES F inal Result [facility] [address] [facility] [address] [place] [id number] * OUTSIDE COLONOSCOPY (09/20/2019 12:00 AM EDT) Anatomical Region Laterality Modality Other 09/20/2019 us Other Other GI/BRONCH PROCEDURE ORDERABLES F inal Result * (ABNORMAL) LIPID PANEL W CALCULATED LDL (03/22/2019 10:30 AM EDT) CHOLESTEROL 84 <200 mg/dL [facility] Comment: [<200 mg/dL: Desirable] [200-239 mg/dL: Borderline High] [>239 mg/dL: High] HDL CHOLESTEROL 34(L) >40.0 mg/dL LAB, [facility] Comment: [<40 mg/dL: Low (High Risk)] [>59 mg/dL: High (Low Risk)] TRIGLYCERIDES-TR IGE 129 <150 mg/dL [facility] Comment: [<150 mg/dL: Desirable] [150-199 mg/dL: Borderline] [200-499 mg/dL: High] [>500 mg/dL: Very High] LDL CHOLESTEROL, CALCULATED 24 0 - 99 mg/dL [facility] Comment: [<100 mg/dL: Optimal] [100-129 mg/dL: Near Optimal] [130-159 mg/dL: Borderline High] [160-189 mg/dL: High] [>189 mg/dL: Very High] CHOLESTEROL, TOTAL/HDL 2.5 <4.5 [facility] Comment:[<4.5: Low risk] NON-HDL CHOLESTEROL (CHOL-HDL) 50 <130 mg/dL [facility] 03/22/2019 10:3 0 AM EDT 03/22/2019 1:04 PM EDT us Nael Torres MD CHEMISTRY [place] [address] * PSA, SCREENING (10/12/2018 12:57 PM EST) PSA 0.36 <4.00 ng/mL [facility] 10/12/2018 12:5 7 PM EST 10/12/2018 4:12 PM EST us Yovani Orr MD IMMUNOLOGY ORDERABLES Final Resu lt LAB, U [address] [place] [address] from Last 3 Months or Most Recently Relevant to Health Maintenance Insurance Medicare [employer] HMO Advance Directives For more information, please contact: [phone] (7:30 AM - 6PM [facility], Thursday-Thursday) * Full Code (Latest Code [...] 4:17 AM 05/15/2022 10:11 PM Care Teams Materials Management Clerk Relationship Specialty Start Date End Date Mihaela Bruno CNP PCP - General 07/19/18
--- OUTSIDE RECORDS SUMMARY | 2025-09-13 06:48 | XMS_ITS ---
Author Organization [facility] Address [address] [place] [address] [place] [address] Care Team Providers Care Art Manager Name Role Phone Mihaela Bruno CNP Primary Care Provider [phone] Transplant Episode Kidney Recipient [facility] ([place]) [place] Organ Received: Left Kidney Transplanted on 04/13/2020 Marked as Active Follow-up on 04/13/2020 Kidney CoordinatorAnayeli Arana RN Phone: N/A Fax: N/A Email: N/A [place] Organ Diagnosis Organ Primary Contributory Kidney Hypertensive Nephrosclerosis Oth er, Specify - Hepatorenal Syndrome Infection History Noted Survival Infection Treatment Organism Resolved 09/10/2023 3 years 4 months Histoplasmosis Donor Information Organ ABO Source Meets Risk Criteria HLA Match Mismatches Cross Match Left Kidney Transplanted O DCD No A: 1 B: 2 DR: 1 Left Kidney Donor Serology Results Anti-HBcAb HBC Total: Negative [...] file WNV KUMAR No results on file Chagas Tcruzi AB No results on file Strongyloid es No results on file Care Team Name Role Phone Fax Email Anayeli Arana RN Kidney Coordinator N/A N/A N/A LU Palma Surgeon N/A N/A N/A Morgan Harris MD Referring Provider [phone] N/A Luisa Steven Financial Counselor N/A N/A N/A KUMAR Yusuf Emergency Detail Driver N/A N/A N/A Erma Roe, [facility]F [facility] Transplant Physician [phone] N/A Events Post-Transplant Pre-Transplant Admitted: 04/12/2020 Referred: 07/01/2018 Transplanted: 04/13/2020 Evaluation began: 9 Discharged: 04/22/2020 Committee: 05/25/2019 UNOS qualified: 06/30/2018 Center waitlisted: 9 Appointments (08/14/2025 - 10/14/2025) When With Visit Type Description 09/20/2025 TRP Established Alyssa ent Visit Dialysis History Dialysis History Start End Type Comments Center 06/30/2018 04/13/2020 Hemo ,, NEED 0361 [facility] Dialysis Center Information Center Phone Fax Address [facility] [phone] [address] [facility] [address]
--- OUTSIDE RECORDS SUMMARY | 2025-09-13 06:48 | XMS_ITS ---
Author Organization [facility] Address [address] [place] [address] [place] [address] Care Team Providers Care Statistical Typist Name Role Phone Mihaela Bruno CNP Primary Care Provider [phone] Transplant Episode Liver Recipient [facility] ([place]) [place] Organ Received: Liver Transplanted on 04/13/2020 Marked as Active Follow-up on 04/13/2020 Liver CoordinatorAnayeli Arana RN Phone: N/A Fax: N/A Email: N/A [place] Organ Diagnosis Organ Primary Contributory Liver Alcoholic [...] Ag/Ab Combo Assay: Not Done HIV-KUMAR HIV KUMRA: Negative Anti-CMV CMV IgG: Negative Anti-HTLV I/II [...] N/A N/A Christiane Ramsey MD Transplant Physician [phone] N/A KUMAR Yusuf Broomcorn Thresher N/A N/A N/A Events Post-Transplant Pre-Transplant Admitted: 04/12/2020 Referred: 07/28/2018 Transplanted: 04/13/2020 Evaluation began: 8 Discharged: 04/22/2020 Committee: 05/23/2019 Center waitlisted: 9 Appointments (08/14/2025 - 10/14/2025) When With Visit Type Description 09/20/2025 TRP Established Alyssa ent Visit Dialysis History Dialysis History Start End Type Comments Center 06/30/2018 04/13/2020 Hemo [place] NEED [facility] D[facility] Information Center Phone Fax Address [facility] [phone] [address] [place] [id number]
--- OUTSIDE RECORDS SUMMARY | 2025-09-13 06:48 | XMS_ITS | Encounter Summary ---
Author Organization [facility] Address [address] [place] [address] Care Team Providers Care Senior Scientist Name Role Phone Momo Verdugo MD Primary Care Provider [phone] Mihaela Bruno NP Unavailable [phone] Kasandra Thomas DO Unavailable [phone] Momo Verdugo MD Unavailable Encounter Details [...] week 02/11/2024 How often do you attend adventism or mandaen serv ices? Never 02/11/2024 Do you belong to any clubs o r organizations such as adventism groups, unions, fraternal or athletic groups, or [...] Recorded Patient Health Questionnaire-2 Score 0 02/11/2024 [facility] - Occupational Stress [...] Visit [facility] [address] [place] [address] Tony Hernandez MD [address] [place] [address] documented as of this encounter Procedures Procedure Name Priority Date/Time Associated Diagnosis Comments CA ECHO DOPPLER COMPLETE 05/20/2024 6:07 PM EDT documented in this encounter Results * CA ECHO DOPPLER COMPLETE (05/20/2024 6:07 PM EDT) Anatomical Region Laterality Modality Other 05/20/2024 6:07 PM EDT Narrative 05/20/2024 6:07 PM EDT The [address] [address] Cardiology Report Signed Patient: GEORGE STYLES MR#: [id number] : 1970 Acct:[id number] Age/Sex: 54 / M ADM Date: 05/18/24 Loc: CARD Attending Dr: MIGUEL LUBIN Ordering Physician: MIGUEL LUBIN Date of Service: 05/18/24 Procedure(s): CA echo doppler complete Accession Number(s): [id number] cc: Mihaela Bruno NP; MIGUEL LUBIN Patient Name: GEORGE STYLES MR#: [id number] : 1970 Exam Date: 05/18/2024 Ordering Doctor: DR MIGUEL LUBIN M.D. ECHOCARDIOGRAM REPORT PROCEDURE: CA ECHO [...] Pressure: 48.01 ml, 48.01 ml Dictated by: Miguel Lubin M.D. on 05/20/2024 at 18:03 Approved by: Miguel Lubin M.D. on 05/20/2024 at 18:07 Dictated By: MIGUEL LUBIN Signed By: 05/20/241806 DD/ 06 TD/TT: Pilot Teacher: Procedure Note Radiology, Radiologist, - 05/20/2024 [place] [address] Cardiology Report Signed Patient: GEORGE STYLES AMR#: [id number] : 1970Acct:[id number] Age/Sex: 54 / MADM Date: 05/18/24 Loc: CARD Attending Dr: MIGUEL LUBIN Ordering Physician: MIGUEL LUBIN Date of Service: 05/18/24 Procedure(s): CA echo doppler complete Accession Number(s): [id number] cc: Mihaela Bruno NP; BRENDANMIGUEL Patient Name: GEORGE STYLES MR#: [id number] : 1970 Exam Date: 05/18/2024 Ordering Doctor: DR MIGUEL LUBIN M.D. ECHOCARDIOGRAM REPORT PROCEDURE: CA ECHO [...] Pressure: 48.01 ml, 48.01 ml Dictated by: Miguel Lubin M.D. on 05/20/2024 at 18:03 Approved by: Miguel Lubin M.D. on 05/20/2024 at 18:07 Dictated By: MIGUEL LUBIN Signed By:05/20/241806 DD/ 06 TD/TT: Pilot Teacher: us Generic External Data Provider [facility] Final Result documented in this encounter Visit Diagnoses Not on filedocumented in this encounter Additional Health Concerns Assessment Noted Time PHQ-9 Depression Total Score: 2 02/11/20 10:49 AM EDT documented as of this encounter Care Teams Senior Scientist Relationship Specialty Start Date End Date Momo Verdugo MD PCP - General Family Medicine 02/11/24 Momo Verdugo MD [address] [place] [address] PCP - [employer] 12/31/24 Mihaela Bruno NP Nurse Practitioner Family Medicine 02/11/24 Kasandra Thomas DO [address] [place] [address] Referring Physician Neurology 02/17/24 documented as of this encounter
--- OUTSIDE RECORDS SUMMARY | 2025-09-13 06:48 | XMS_ITS | Encounter Summary ---
Author Organization [facility] Address [address] [place] [address] Care Team Providers Care Custom Bookbinder Name Role Phone Momo Verdugo MD Primary Care Provider [phone] Momo eVrdugo MD Primary Care Provider [phone] Mihaela Bruno RN NAVIGATOR Unavailable [phone] Kasandra Thomas DO Unavailable [phone] Momo Verdugo MD Unavailable Encounter Details Date Type Department Care Team (Late st Contact Info) Description 12/02/2023 Orders Only [facility] [address] [place] [address] Mihaela Bruno, RN NAVIGATOR [address] [place] [address] Social History Tobacco Use Types Packs/Day Years [...] week 10/27/2023 How often do you attend temple or yarsani serv ices? Never 10/27/2023 Do you belong [...] and heating? Not hard at all 10/27/2023 [facility] - Occupational Stress [...] Encounters Date Type Department Care Team (Late Contact Info) Description 09/19/2025 9:30 AM EDT Office Visit [facility] [address] [place] [address] Tony Hernandez MD [address] [place] [address] documented as of this encounter Procedures Procedure Name Priority Date/Time Associated Diagnosis Comments MULTIPLE SLEEP LATENCY TEST Routine 11/18/2023 10:21 AM EST documented in this encounter Results * Multiple sleep latency test (11/18/2023 10:21 AM EST) us Mihaela Bruno NP [facility] ORDERABLES Final R esult documented in this encounter Visit Diagnoses Not on filedocumented in this encounter Care Teams Custom Bookbinder Relationship Specialty Start Date End Date Momo Verdugo MD PCP - General Family Medicine 05/21/23 02/10/24 Momo Verdugo MD PCP - General Family Medicine 02/11/24 Momo Verdugo MD [address] [facility] [place] [address] PCP - [employer] 12/31/24 Mihaela Bruno NP Nurse Practitioner Family Medicine 02/11/24 Kasandra Thomas DO [address] [place] [address] Referring Physician Neurology 02/17/24 documented as of this encounter
--- OUTSIDE RECORDS SUMMARY | 2025-09-13 06:48 | XMS_ITS | Encounter Summary ---
Author Organization [facility] enter Address [address] [place] [address] Care Team Providers Care Campus Safety Officer Name Role Phone Mihaela Bruno CNP Primary Care Provider [phone] Comfort Rivera [facility] Unavailable [phone] Carpio Unavailable Unavailable Te Leigh [facility], PharmD Unavailable Unava ilable Evan White DO Unavailable [phone] Evan White DO Unavailable [phone] Encounter Details Date Type Department Care Team (Late st Contact Info) Description 02/17/2020 Documentation Only [facility]UE [facility] [address] [place] [id number] Orders, Other Social History Tobacco Use Types [...] and Spine [facility] [place] [facility] [address] [place] [address] 11th [place] [address] documented as of this encounter Visit Diagnoses [...] documented as of this encounter Care Teams Campus Safety Officer Relationship Specialty Start Date End Date Mihaela Bruno, MANAGER ENGAGEMENT PCP - General 07/19/18 Comfort Rivera, [facility] [address] [facility] [address] [place] [address] Pharmacist Pharmacist 05/16/20 05/14/22 Angel Carpio Pharmacist Pharmacist 05/16/20 05/14/22 Te Leigh [facility], PharmD Pharmacist Pharmacist 01/09/2105/14 Evan White DO [address] [id number] Infectious Disease Infectious Disease 09/09/23 03/14/24 Evan White DO [address] [place] [address] Infectious Disease Infectious Disease 09/08/24 4 documented as of this encounter
--- OUTSIDE RECORDS SUMMARY | 2025-09-13 06:48 | XMS_ITS | Encounter Summary ---
Author Organization [facility] Address [address] [place] [address] Care Team Providers Care Site Director Name Role Phone Momo Verdugo MD Primary Care Provider [phone] Mihaela Bruno [employer] Unavailable [phone] Kasandra Thomas DO Unavailable [phone] Momo Verdugo MD Unavailable Encounter Details Date Type Department Care Team (Late st Contact Info) Description 2024 Orders Only [facility] [address] [place] [address] Mihaela Bruno NP [address] [place] [address] Social History Tobacco Use Types Packs/Day Years [...] week 02/11/2024 How often do you attend advent or congregational serv ices? Never 02/11/2024 Do you belong to any clubs o r organizations such as advent groups, unions, fraternal or athletic groups, or [...] Recorded Patient Health Questionnaire-2 Score 0 02/11/2024 [facility] - Occupational [...] Office Visit [facility] [address] [place] [address] Tony Hernandez MD [address] [place] [address] documented as of this encounter Visit Diagnoses Not on filedocumented in this encounter Additional Health Concerns Assessment Noted Time PHQ-9 Depression Total Score: 2 02/11/20 10:49 AM EDT documented as of this encounter Care Teams Site Director Relationship Specialty Start Date End Date Momo Verdugo MD PCP - General Family Medicine 02/11/24 Momo Verdugo MD [address] [place] [address] PCP - [employer] 12/31/24 Mihaela Bruno NP Nurse Practitioner Family Medicine 02/11/24 Kasandra Thomas DO [address] [place] [address] Referring Physician Neurology 02/17/24 documented as of this encounter
--- OUTSIDE RECORDS SUMMARY | 2025-09-13 06:48 | XMS_ITS | Encounter Summary ---
Author Organization [facility] enter Address [address] [place] [address] Care Team Providers Care Infection Prevention Practitioner Name Role Phone Mihaela Bruno CNP Primary Care Provider [phone] Comfort Rivera [facility] Unavailable [phone] Carpio Unavailable Unavailable Te Leigh [facility], PharmD Unavailable Unava ilable Evan White DO Unavailable [phone] Evan White DO Unavailable [phone] Encounter Details Date Type Department Care Team (Late st Contact Info) Description 04/13/2020 Orders Only [facility] [address] [place] [address] Shaw Broussard ESRD (end stage renal disease) [...] Spine [facility] [address] 11[address] [place] [address] documented as of this encounter Procedures Procedure Name Priority Date/Time Associated Diagnosis Comments SURG PATH REQUEST Routine 04/13/2020 1:3 5 AM EDT ESRD (end stage renal disease) documented in this encounter Results * SURG PATH REQUEST (04/13/2020 1:35 AM EDT) Case Report Surgical Pathology Report Case: [id number] Authorizing Provider: LU Palma Collected: 04/13/2020 01:35 AM Ordering Location: [facility] Received: 04/13/2020 09:18 AM [facility] Pathologist: Yuan Groves MD, PhD Specimen: SURG PATH 04/16/2020 5:36 PM EDT [facility] Clinical History 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 Cold ischemia time is not provided. 04/16/2020 5:36 PM EDT [facility] Pathologic Diagnosis A. Kidney, baseline biopsy of allograft: Subcapsular renal cortex with mild nonspecific changes Note: Mild preservation injury is noted 04/16/2020 5:36 PM EDT [facility] at 1736 EDT Microscopic Description [...] Banff grading system 04/16/2020 5:36 PM EDT [facility] Gross Description The specimen is received in one properly labeled container with the patient's name and accession number. A. The specimen is designated baseline donor kidney biopsy for H&E only and consists of one soft aguero tissue wedge measuring 0.9 x 0.4 x 0.3 cm. TE 1 Lab Use Only: JobID [id number] Grosser for this case was: Starla Maddox 04/16/2020 5:36 PM EDT [facility] Images 04/16/2020 5:36 PM EDT [facility] Tissue (SURG PATH) 04/13/2020 1:35 AM EDT 04/13/2020 9:18 AM EDT Renee LEIGH SURG PATH Final R esult Performing Organization Address City/State/[facility] Co de Phone Number [facility] [address] [place] [address] documented in this encounter Visit Diagnoses Diagnosis [...] documented as of this encounter Care Teams Infection Prevention Practitioner Relationship Specialty Start Date End Date Mihaela Bruno CNP PCP - General 07/19/18 Comfort Rivera [facility] [address] [facility] [address] [place] [address] Pharmacist Pharmacist 05/16/20 05/14/22 Angel Carpio Pharmacist Pharmacist 05/16/20 05/14/22 Te Leigh [facility], PharmD Pharmacist Pharmacist 01/09/2105/14 Evan White DO [address] [place] [address] Infectious Disease Infectious Disease 09/09/23 03/14/24 Evan White DO [address] [place] [address] Infectious Disease Infectious Disease 09/08/24 4 documented as of this encounter
--- OUTSIDE RECORDS SUMMARY | 2025-09-13 06:48 | XMS_ITS | Encounter Summary ---
Author Organization [facility] Address [address] [place] [address] Care Team Providers Care Compliance Examiner Name Role Phone Momo Verdugo MD Primary Care Provider [phone] Momo Verdugo MD Primary Care Provider [phone] Mihaela Bruno MARINE SERVICE OPERATOR Unavailable [phone] Kasandra Thomas DO Unavailable [phone] Momo Verdugo MD Unavailable Encounter Details Date Type Department Care Team (Late st Contact Info) Description 02/01/2024 Orders Only [facility] [address] [place] [address] Mihaela rBuno, MARINE SERVICE OPERATOR [address] [place] [address] Social History Tobacco Use Types Packs/Day Years [...] week 10/27/2023 How often do you attend catholic or scientologist serv ices? Never 10/27/2023 Do you belong [...] Recorded Patient Health Questionnaire-2 Score 2 01/06/2024 [facility] - Occupational [...] [facility] [address] [place] [address] Tony Hernandez MD [address] [place] [address] documented as of this encounter Procedures Procedure Name Priority Date/Time Associated Diagnosis Comments ELECTROCARDIOGRAM REPORT Routine 024 10:24 AM EST documented in this encounter Results * Electrocardiogram Report (01/15/2024 10:24 AM EST) us Mihaela Bruno NP IN CLINIC/BEDSIDE ORDERABLES Fi nal Result documented in this encounter Visit Diagnoses Not on filedocumented in this encounter Care Teams Compliance Examiner Relationship Specialty Start Date End Date Momo Verdugo MD PCP - General Family Medicine 05/21/23 02/10/24 Momo Verdugo MD PCP - General Family Medicine 02/11/24 Momo Verdugo MD [address] [facility] [place] [address] PCP - [employer] 12/31/24 Mihaela Bruno NP Nurse Practitioner Family Medicine 02/11/24 Kasandra Thomas DO [address] [place] [address] Referring Physician Neurology 02/17/24 documented as of this encounter
--- OUTSIDE RECORDS SUMMARY | 2025-09-13 06:48 | XMS_ITS ---
Author Organization [facility] Address [address] [place] [address] Care Team Providers Care Centrifugal Extractor Operator Name Role Phone Unavailable Unavailable Unavailable Allergies, Adverse Reactions, Alerts This patient has no known allergies or adverse reactions. Problems This patient has no known problems.
--- OUTSIDE RECORDS SUMMARY | 2025-09-13 06:48 | XMS_ITS | Encounter Summary ---
Author Organization [facility] enter Address [address] [place] [address] Care Team Providers Care Supervising Nurse Name Role Phone Mihaela Bruno CNP Primary Care Provider [phone] Comfort Rivera [facility] Unavailable [phone] Carpio Unavailable Unavailable Te Leigh [facility], PharmD Unavailable Unava ilable Evan White DO Unavailable [phone] Evan White DO Unavailable [phone] Reason for Visit * Reason Onset Date Comments Order Request 08/17/2019 Encounter Details Date Type Department Care Team (Late st Contact Info) Description 08/17/2019 Telephone Gastroenterology and Hepatology [facility] [address] [place] [address] [place] [address] Rey Wild Order Request Social History Tobacco [...] Comments Transthoracic echo with agitated saline (Ph# [phone], fax #[phone]) Routed to pre txp as test ordered for OLT workup, may need done at [facility] Routed to scheduling to contact patient and reschedule f/up that was bumped from 11/14 * Telephone Encounter - Rey Wild - 08/17/2019 12:25 PM EDT Provider: Christin Elizabeth APRN-GUARD SUPERVISOR Order request (lab,imaging, procedure): ECHOCARDIOGRAM If going outside of [facility] please obtain the following information: Name of facility: [facility] Phone number of facility: [phone] Fax number of facility: the pt reports that he does not have this number Preferred call back time: [phone] The pt reports that he would like a call back in regard to this matter. *Patient is aware of the 24-48 hour turn around time* documented in this encounter Plan of Treatment Upcoming Encounters Date Type Department Care Team (Late st Contact Info) Description 09/20/2025 8:00 AM EDT Office Visit [facility] [address] [place] [address] documented as of this encounter [...] documented as of this encounter Care Teams Supervising Nurse Relationship Specialty Start Date End Date Mihaela Bruno, ROB PCP - General 07/19/18 Comfort Rivera [facility] [address] [facility] [address] [place] [address] Pharmacist Pharmacist 05/16/20 05/14/22 Angel Carpio Pharmacist Pharmacist 05/16/20 05/14/22 Te Leigh, [facility], PharmD Pharmacist Pharmacist 01/09/2105/14 Evan White DO [address] [place] [address] Infectious Disease Infectious Disease 09/09/23 03/14/24 Evan White DO [address] [place] [address] Infectious Disease Infectious Disease 09/08/24 4 documented as of this encounter
--- OUTSIDE RECORDS SUMMARY | 2025-09-13 06:48 | XMS_ITS | Encounter Summary ---
Author Organization [facility] enter Address [address] [place] [address] Care Team Providers Care Boom Worker Name Role Phone Mihaela Bruno CNP Primary Care Provider [phone] Comfort Rivera [facility] Unavailable [phone] Angel Carpio Unavailable Unavailable Te Leigh [facility], PharmD Unavailable Unava ilable Evan White DO Unavailable [phone] Evan White DO Unavailable [phone] Encounter Details Date Type Department Care Team (Late st Contact Info) Description 02/17/2020 Documentation Only [facility] TISSUE TYPING [facility] [address] [place] [address] Orders, Other Social History Tobacco Use Types [...] Visit [facility] [address] [place] [address] 11[address] [place] [address] documented as of this encounter Visit Diagnoses [...] documented as of this encounter Care Teams Boom 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 Start Date End Date Mihaela Bruno, BLOCKER HAND PCP - General 07/19/18 Comfort Rivera, [facility] [address] [facility] [address] [place] [address] Pharmacist Pharmacist 05/16/20 05/14/22 Angel Carpio Pharmacist Pharmacist 05/16/20 05/14/22 Te Leigh [facility], PharmD Pharmacist Pharmacist 01/09/2105/14 Evan White DO [address] [id number] Infectious Disease Infectious Disease 09/09/23 03/14/24 Evan White DO [address] [place] [address] Infectious Disease Infectious Disease 09/08/24 4 documented as of this encounter
--- OUTSIDE RECORDS SUMMARY | 2025-09-13 06:54 | XMS_ITS | CCD ---
Author Organization [facility] Care Team Providers Care Top Cleaner Name Role Phone Kiana Zuly Unavailable Unavailable [...] Unavailable AICHHOLZ, ZULY Primary Care Unavailable Aichholz [facility] Primary Care Provider [phone] Miguel RPComfort Unavailable Shirin [facility],PharmD, Angel Unavailable Unavailab makayla Leigh [facility],PharmD, Te Unavailable Unavai lable [facility] [phone] CHANDUC, DR BURCH Admitting Unavailable MISC, DR BURCH Consulting Unavailable AICHHOLZ, DYE EXPERT ZULY Primary Care Unavailable MISC, DR BURCH Attending Unavailable MISC, DR BURCH Admitting Unavailable MISC, DR BURCH Consulting Unavailable AICHHOLZ, DYE EXPERT ZULY Primary Care Unavailable MISC, DR BURCH Attending Unavailable ARCELIA PIZARRO Consulting Unavailable KE BURNHAM Attending Unavailable KE BURNHAM Admitting Unavailable BARBARA, DR MÓNICA Munoz Consulting Unavailable AICHHOLZ, DYE EXPERT ZULY Primary Care Unavailable KE BURNHAM Consulting Unavailable MISC, DR BURCH Consulting Unavailable MISC, DR BURCH Attending Unavailable AICHHOLZ, DYE EXPERT ZULY Primary Care Unavailable MISC, DR BURCH Admitting Unavailable MISC, DR BURCH Consulting Unavailable MISC, DR BURCH Attending Unavailable AICHHOLZ, DYE EXPERT ZULY Primary Care Unavailable MISC, DR BURCH Admitting Unavailable MISC, DR BURCH Consulting Unavailable AICHHOLZ, DYE EXPERT ZULY Primary Care Unavailable MISC, DOCTOR Admitting Unavailable MISC, DR DOCTOR Attending Unavailable MELINDA, DR GEORGE Munoz Consulting Unavailable MELINDA, DR GEORGE Munoz Attending Unavailable AICHHOLZ, DYE EXPERT ZULY Primary Care Unavailable MELINDA, DR GEORGE Munoz Admitting Unavailable NAUN ., KE Consulting Unavailable MIRANDA, LYNDSAY Consulting Unavailable MELINDA, DR GEORGE Munoz Consulting Unavailable NAUN ., KE Attending Unavailable NAUN ., KE Admitting Unavailable AICHHOLZ, DYE EXPERT ZULY Primary Care Unavailable NAUN ., KE Consulting Unavailable GIAN HERRING Consulting Unavailable AICHHOLZ, DYE EXPERT ZULY Consulting Unavailable AICHHOLZ, DYE EXPERT ZULY Attending Unavailable AICHHOLZ, DYE EXPERT ZULY Admitting Unavailable AICHHOLZ, DYE EXPERT ZULY Primary Care Unavailable MISC, DR DOCTOR Consulting Unavailable MISC, DOCTOR Admitting Unavailable MISC, DOCTOR Attending Unavailable AICHHOLZ, DYE EXPERT ZULY Primary Care Unavailable MISC, DR DOCTOR Consulting Unavailable MISC, DR DOCTOR Attending Unavailable MISC, DOCTOR Admitting Unavailable AICHHOLZ, DYE EXPERT ZULY Primary Care Unavailable MISC, DOCTOR Admitting Unavailable MISC, DOCTOR Consulting Unavailable MISC, DR DOCTOR Attending Unavailable AICHHOLZ, DYE EXPERT ZULY Primary Care Unavailable MISC, DOCTOR Admitting Unavailable MISC, DR DOCTOR Consulting Unavailable AICHHOLZ, DYE EXPERT ZULY Primary Care Unavailable MISC, DR DOCTOR Attending Unavailable MISC, DOCTOR Admitting Unavailable MISC, DOCTOR Consulting Unavailable AICHHOLZ, DYE EXPERT ZULY Primary Care Unavailable MISC, DR DOCTOR Attending Unavailable AICHHOLZ, DYE EXPERT ZULY Consulting Unavailable AICHHOLZ, DYE EXPERT ZULY Attending Unavailable AICHHOLZ, DYE EXPERT ZULY Admitting Unavailable AICHHOLZ, DYE EXPERT ZULY Primary Care Unavailable DR MÓNICA JIMENEZ Consulting Unavailable Aichholz [facility], Zuly Primary Care Provider Evan White DO Unavailable [facility], Zuly Primary Care Provider [phone] Tran White DOs A Unavailable Momo Verdugo MD Primary Care Provider AicZuly steve CNP Primary Care Provider ZULY BRUNO Primary Care Physician Momo Verdugo MD Primary Care Provider Kiana GLUE SIZE MACHINE OPERATOR, Zuly Unavailable Kasandra Thomas DO Unavailable Zuly Bruno Primary Care Provider [phone] Briseida LUZ, Yoselyn Attending Provider Zuly Bruno [...] Attending Unavailable AICHHOLZ, ZULY Attending Unavailable Aichholz GLUE SIZE MACHINE OPERATOR, Zuly Unavailable Kiana GLUE SIZE MACHINE OPERATOR-CZuly Primary Care Provider Kiana GLUE SIZE MACHINE OPERATOR-CZuly Attending Provider [phone] REBECA GUTIERREZ Attending Unavailable SELF, SELF Referring Unavailable AICHHOLZ, ZULY Primary Care Unavailable SELF, SELF Referring Unavailable AICHHOLZ, ZULY Primary Care Unavailable EVAN WHITE Attending Unavailabl e Allergies Allergy Classification Reported Allergen(s) Allergy Type Date of Onset Reaction(s) Facility (3 sources) Shellfish; Translations: [SHELLFISH DERIVED] Propensity to adverse reactions (disorder) 8 [facility] Repository (20 sources) Shellfish-Deriv ed Products Propensity to adverse reactions to drug 9 [facility] (5 sources) Shellfish; Translations: [shellfish] Drug allergy (disorder) Anaphylaxis (disorder) [facility] Repository Medications Current Medications Medication Drug [...] 1 capsule by mouth once daily b twjvfsr-U-hxosq acid (NEPHROCAPS) 1 MG capsule Take 1 [...] week(s), # 56 cap(s), Refills(s) 0, Pharmacy: [facility], 170, cm, 01/03/25 11:03:00 EST, Height/Length [...] every week ergocalciferol (Vitamin D-2) 1.25 MG (31302 UT) capsule Indications: Vitamin D deficiency Take [...] Nausea / Vomiting. Active polyethylene glycol 3350 94991 mg powder for oral solution (20 sources) [...] 08-20-2022 take 1 capsule by mo [facility] [place] every twelve hours Tacrolimus (PROGRAF) 0.5 MG [...] itraconazole Fax results to: Dr. White - [phone] [facility] - [phone] Each 09/10/2023 01/19/2024 Discontinued (Medication Reconciliation (suppress cancel msg)) Start: 09-10-2023 CUSTOM MEDICAT ION Labs to be obtained: 1- Tacrolimus level, trough - collect twice weekly until 09/24/23, then weekly until 10/08/23, them once every two weeks there after. 2- Itraconazole level - obtain once between 09/14-09/18. 3- Chem 6 - Obtain weekly while on itraconazole Fax results to: Dr. White - [phone] [facility] - [phone] Each 0 09/10/2023 Active Diatrizoate (1 source) Start: 05-20-2022 End: 05-20-2022 diatrizoate Meglumine (Cystografin) 30 % UR solution 80 mL diphenhydrAMINE hydrochloride 25 mg oral tablet (1 source) Histamine-1 Receptor Antagonist Start: 09-03-2023 End: 09-11-2023 take 25 mg by mouth every twenty-four hours 25 mg, Oral, EVERY 24 HOURS, First dose on [facility] 09/03/23 at 1600, Until Discontinued Give 30 minutes prior to each amphotericin b dose docusate sodium 100 mg oral capsule (4 sources) Start: 05-15-2022 End: 05-16-2022 take 200 mg by mouth every twelve hours 200 mg, Oral, EVERY 12 HOURS, First dose on [facility] 05/15/22 at 2215, Until Discontinued Start: 05-23-2020 [...] AN PO) Take by mouth. Active sennosides, senior care 8.6 mg oral tablet (1 source) Start: [...] hrs, # 30 tab(s), Refills(s) 5, Pharmacy: [facility], 170, cm, 11/22/24 9:39:00 EST, Height/Length [...] Overview: Added automatically from request for surgery [id number] Allergic reactions (20 sources) Eczema; Translations: [Dermatitis, unspecified] Onset: 4 02-25-2024 Episodic Anxiety disorders (20 sources) Generalized anxiety disorder; Translations: [Generalized anxiety disorder] Onset: 3 11-03-2023 Chronic Chronic kidney disease (20 sources) End stage renal failure on dialysis; Translations: [End-stage renal disease] Onset: 8 Resolved: 5 06-22-2018 Chronic Comment on above: Outside Source Comme nt: Overview: Added automatically from request for surgery [id number] Coagulation and hemorrhagic disorders (6 sources) Hypercoagulability state; Translations: [Other primary thrombophilia] 08-21-2018 Chronic Congestive heart failure; nonhypertensive (20 sources) Acute diastolic heart failure; Translations: [Acute diastolic (congestive) heart failure] Onset: 4 01-20-2024 Chronic Coronary atherosclerosis and other heart disease (20 sources) Coronary arteriosclerosis; Translations: [Atherosclerotic heart disease of [place] coronary artery without angina pectoris] Onset: 3 [...] sources) Taking high risk medication; Translations: [Other turf manager (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] Episodic Other aftercare (1 [...] Overview: Added automatically from request for surgery [id number] Other liver diseases (3 sources) Liver transplant [...] 05-10-2020 Episodic Other aftercare (1 source) Other fci (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; Translations: [OTH ASSISTED 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 THERAPY] Onset: 2 Episodic Other aftercare (1 source) senior living (current) use of aspirin; Translations: [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] Onset: 2 Episodic [...] WITH AUTO DIFFon BASOPHILS ABSOLUTE AUTO 0 [facility] Basophils/100 WBC (Bld) 0.6 % 0.2 - 2.0 % [facility] Eosinophils/100 WBC (Bld) 3.6 % 0.9 - 7.0 % [facility] Erythrocyte distribution width (RBC) [Ratio] 12.2 % 11.0 - 15.0 % [facility] Hematocrit (Bld) [Volume fraction] 45.9 % 42.0 - 54.0 % [facility] Hemoglobin (Bld) [Mass/Vol] 15.7 g/dL 14.0 - 18.0 g/dL [facility] IMMATURE GRANULOCYTES ABS AUTO 0.01 [facility] Immature granulocytes/100 WBC (Bld) 0.2 % 0.0 - 0.5 % [facility] LYMPHOCYTES ABSOLUTE AUTO 1.7 [facility] Lymphocytes/100 WBC (Bld) 32.8 % 20.5 - 60.0 % [facility] MCH (RBC) [Entitic mass] 29.4 pg 25.9 - 34.0 pg [facility] MCHC (RBC) [Mass/Vol] 34.2 g/dL 29.9 - 35.2 g/dL [facility] MCV (RBC) [Entitic vol] 86 fL 80.0 - 94.0 fL [facility] MONOCYTES ABSOLUTE AUTO 0.5 [facility] Monocytes/100 WBC (Bld) 9.3 % 1.7 - 12.0 % [facility] NEUTROPHILS ABSOLUTE AUTO 2.7 [facility] Neutrophils/100 WBC (Bld) 53.5 % 43.0 - 75.0 % [facility] Platelet mean volume (Bld) [Entitic vol] 9.8 fL 9.5 - 13.5 fL [facility] TBH EO # 0.2 [facility] PLT 228 [facility] RBC 5.34 [facility] WBC 5.1 [facility] ALL CBC WITH AUTO DIFFon BASOPHILS ABSOLUTE AUTO 0 [facility] Basophils/100 WBC (Bld) 0.6 % 0.2 - 2.0 % [facility] Eosinophils/100 WBC (Bld) 3.2 % 0.9 - 7.0 % [facility] Erythrocyte distribution width (RBC) [Ratio] 12.5 % 11.0 - 15.0 % [facility] Hematocrit (Bld) [Volume fraction] 46.3 % 42.0 - 54.0 % [facility] Hemoglobin (Bld) [Mass/Vol] 15.8 g/dL 14.0 - 18.0 g/dL [facility] IMMATURE GRANULOCYTES ABS AUTO 0.01 [facility] Immature granulocytes/100 WBC (Bld) 0.2 % 0.0 - 0.5 % [facility] LYMPHOCYTES ABSOLUTE AUTO 1.4 [facility] Lymphocytes/100 WBC (Bld) 31 % 20.5 - 60.0 % [facility] MCH (RBC) [Entitic mass] 29.6 pg 25.9 - 34.0 pg [facility] MCHC (RBC) [Mass/Vol] 34.1 g/dL 29.9 - 35.2 g/dL [facility] MCV (RBC) [Entitic vol] 86.9 fL 80.0 - 94.0 fL [facility] MONOCYTES ABSOLUTE AUTO 0.5 [facility] Monocytes/100 WBC (Bld) 10.6 % 1.7 - 12.0 % [facility] NEUTROPHILS ABSOLUTE AUTO 2.5 [facility] Neutrophils/100 WBC (Bld) 54.4 % 43.0 - 75.0 % [facility] Platelet mean volume (Bld) [Entitic vol] 9.8 fL 9.5 - 13.5 fL [facility] TBH EO # 0.2 [facility] TBH PLT 219 [facility] RBC 5.33 [facility] TB WBC 4.6 [facility] Ambulatory Visit Summaryon 0 03-23-2025 Ambulatory Visit [...] choosing us for your care. Normal [facility] Urology Office/Clinic Noteon 03-23-2025 Urology Office/Clinic Note [...] E&M of Est. Patient Moderate 30-39 Min 60485 2. BPH with urinary obstruction (N40.1: Benign [...] next steps including cysto/TRUS for sizing Ordered: [id number] Measure Post Void residual urine and/or bladder capacity by US- non-imaging E&M of Est. Patient Moderate 30-39 Min 77531 Urnls Dip Stick Auto w/o Microscopy POC 28793 3. Weak urine stream (R39.12: Poor urinary stream) -See #2 Ordered: [id number] Measure Post Void residual urine and/or bladder capacity by US- non-imaging E&M of Est. Patient Moderate 30-39 Min 25659 Urnls Dip Stick Auto w/o Microscopy POC 04380 4. Erectile dysfunction (N52.9: Male erectile dysfunction, unspecified) LINDEN 19(3) Started taking Cialis 10mg PRN at prior OV. Pt is very satisfied with current dosing. No need for change at this time. -Continue Cialis 10mg PRN Ordered: 38133 Measure Post Void residual urine and/or bladder capacity by US- non-imaging E&M of Est. Patient Moderate 30-39 Min 97392 Urnls Dip Stick Auto w/o Microscopy POC 05043 5. Screening PSA (prostate specific antigen) (Z12.5: Encounter for screening for malignant neoplasm of prostate) PSAs: 09/15/22 - 0.79 08/29/24 - 0.85 Pt aware that he is due for PSA in July for annual check. Pt would like to obtain this at [facility]. -PSA at [facility] in early August for screening (recall placed) -F/U to review results and discuss #2 Ordered: E&M of Est. Patient Moderate 30-39 Min 49856 6. History of kidney transplant (Z94.0: Kidney transplant status) 08/29/24 - BUN 18, Cre 1.3, GFR 58 Pt had liver and kidney transplant in 2019 and follows yearly with [facility]. Due for labs in April. Pt reports being on Bactrim 3x weeks for kidney transplant. Ordered: E&M of Est. Patient Moderate 30-39 Min 25313 Follow-up With When Contact Information Clementina James, URL Within 6 months Additional Instructions: w/ PSA Patient Education Benign Prostatic Hyperplasia Problem List/Past Medical History Ongoing Acute kidney injury Alcoho (more content not included)... Normal [facility] Comment on above: Result Comment: Elec tronically Signed By: Clementina James\.br\Date and Time Signed: 03/23/25 08:54 EDT Office Visiton 03-22-2025 Follow-up visit [id number] George Styles 1970 M Date Provider Department Center 03/22/2025 [facility] Family History Problem Relation Age of Onset Coronary artery disease Mother Coronary artery disease Father Coronary artery disease Sister Coronary artery disease Brother Family Status - Relation Status Age at Mother Father Sister Alive Brother Alive Level of Service:37101 ID OFFICE/OUTPATIENT ESTABLISHED MOD MDM 30 MIN Normal [facility] CALCIUM 24 HOUR URINEon CALCIUM 24 HOUR URINE 348.3 High [facility] CALCIUM URINE RANDOM 12.9 mg/dL 5.1 - 2 1.0 mg/dL [facility] Interpretation and review of laboratory results Abnormal [facility] CREATININE 24 HOUR URINEon 0 03-08-2025 CREATININE 24 HOUR URINE 1600.56 [facility] CREATININE URINE RANDOM 59.28 mg/dL 20.00 - 300.00 mg/dL [facility] TOTAL VOLUME 24 HOUR URINE 2700 mL/24hr [facility] No Panel Informationon 03-08 [facility] SODIUM 24 HOUR URINEon 03-08 Sodium (U) [Moles/Vol] 74 mmol/L 30 - 90 mmol/L [facility] SODIUM 24 HOUR URINE 200 [facility] ALL CBC WITH AUTO DIFFon BASOPHILS ABSOLUTE AUTO 0 [facility] Basophils/100 WBC (Bld) 0.9 % 0.2 - 2.0 % [facility] Eosinophils/100 WBC (Bld) 2.8 % 0.9 - 7.0 % [facility] Erythrocyte distribution width (RBC) [Ratio] 12.5 % 11.0 - 15.0 % [facility] Hematocrit (Bld) [Volume fraction] 47.5 % 42.0 - 54.0 % [facility] Hemoglobin (Bld) [Mass/Vol] 16.1 g/dL 14.0 - 18.0 g/dL [facility] IMMATURE GRANULOCYTES ABS AUTO 0.01 [facility] Immature granulocytes/100 WBC (Bld) 0.2 % 0.0 - 0.5 % [facility] LYMPHOCYTES ABSOLUTE AUTO 1.6 [facility] Lymphocytes/100 WBC (Bld) 34.5 % 20.5 - 60.0 % [facility] MCH (RBC) [Entitic mass] 29.7 pg 25.9 - 34.0 pg [facility] MCHC (RBC) [Mass/Vol] 33.9 g/dL 29.9 - 35.2 g/dL [facility] MCV (RBC) [Entitic vol] 87.6 fL 80.0 - 94.0 fL [facility] MONOCYTES ABSOLUTE AUTO 0.4 [facility] Monocytes/100 WBC (Bld) 9.1 % 1.7 - 12.0 % [facility] NEUTROPHILS ABSOLUTE AUTO 2.5 [facility] Neutrophils/100 WBC (Bld) 52.5 % 43.0 - 75.0 % [facility] Platelet mean volume (Bld) [Entitic vol] 9.8 fL 9.5 - 13.5 fL [facility] TBH EO # 0.1 [facility] TB PLT 216 [facility] RBC 5.42 [facility] WBC 4.7 [facility] Reminderson 02-21-2025 Reminders Reminders From: Paulina Morales To: EU - Administrative; Sent: 11/22/2024 09:52:41 EST Show up: 01/28/2025 09:52:00 EST Subject: Ambulatory Reminder Due Date/Time: 03/09/2025 09:52:00 EDT Reminder/Recall Patient needs scheduled with [facility] for a 4 month F/U, he schedule is not built yet. Due back in February 2025 LVM Pt is scheduled for ThMarch 23, 2025 @8:00am w/ [facility] in [place]. [facility] ALL CBC WITH AUTO DIFFon BASOPHILS ABSOLUTE AUTO 0 [facility] Basophils/100 WBC (Bld) 0.7 % 0.2 - 2.0 % [facility] Eosinophils/100 WBC (Bld) 2.9 % 0.9 - 7.0 % [facility] Erythrocyte distribution width (RBC) [Ratio] 12.6 % 11.0 - 15.0 % [facility] Hematocrit (Bld) [Volume fraction] 46.7 % 42.0 - 54.0 % [facility] Hemoglobin (Bld) [Mass/Vol] 15.5 g/dL 14.0 - 18.0 g/dL [facility] IMMATURE GRANULOCYTES ABS AUTO 0.01 [facility] Immature granulocytes/100 WBC (Bld) 0.2 % 0.0 - 0.5 % [facility] LYMPHOCYTES ABSOLUTE AUTO 1.6 [facility] Lymphocytes/100 WBC (Bld) 35 % 20.5 - 60.0 % [facility] MCH (RBC) [Entitic mass] 29.5 pg 25.9 - 34.0 pg [facility] MCHC (RBC) [Mass/Vol] 33.2 g/dL 29.9 - 35.2 g/dL [facility] MCV (RBC) [Entitic vol] 88.8 fL 80.0 - 94.0 fL [facility] MONOCYTES ABSOLUTE AUTO 0.4 [facility] Monocytes/100 WBC (Bld) 9.3 % 1.7 - 12.0 % [facility] NEUTROPHILS ABSOLUTE AUTO 2.3 [facility] Neutrophils/100 WBC (Bld) 51.9 % 43.0 - 75.0 % [facility] Platelet mean volume (Bld) [Entitic vol] 9.9 fL 9.5 - 13.5 fL [facility] TBH EO # 0.1 [facility]H PLT 219 [facility] TBH RBC 5.26 [facility] TB WBC 4.5 [facility] Ambulatory Visit Summaryon 0 01-03-2025 Ambulatory [...] APRN, Steph Wilson Where: [facility] [address] [place] [address]- You Need to Schedule the Following Appointments Follow Up with JONATHAN Almodovar APRN, Steph Wilson, FAM, URL When: Where: Medications What How Much When Instructions New doxycycline (doxycycline hyclate 100 mg Cap) 1 Capsules By Mouth 2 times a day Duration: 4 Weeks may substitute hyclate for monohydrate based on availability Pickup at [facility] Unchanged allopurinol (allopurinol 100 mg Tab) [...] physician if questions or concerns Pharmacy Information [facility]: [address] [place], [place] [id number] [phone] Allergies shellfish (Anaphylaxis) Problems Ongoing - Any [...] asking a (more content not included)... Normal [facility] Urology Office/Clinic Noteon 01-03-2025 Urology Office/Clinic [...] Pt understands and agrees with plan. Ordered: 32332 Measure Post Void residual urine and/or bladder capacity by US- non-imaging Urnls Dip Stick Auto w/o Microscopy POC 69596 3. Erectile dysfunction (N52.9: Male erectile dysfunction, unspecified) LINDEN (3) Started taking Cialis 10mg PRN at prior OV. Ordered: Urnls Dip Stick Auto w/o Microscopy POC 30800 4. Screening PSA (prostate specific antigen) (Z12.5: Encounter for screening for malignant neoplasm of prostate) PSA 09/15/22 - 0.79 08/29/24 - 0.85 Reviewed PSA w patient today. Ordered: Urnls Dip Stick Auto w/o Microscopy POC 88624 5. History of kidney transplant (Z94.0: Kidney transplant status) 08/29/24 - BUN 18, Cre 1.3, GFR 58 Pt had liver and kidney transplant in 2020 and follows yearly with [facility]. [1] Pt reports being on Bactrim 3x weeks for kidney transplant. Ordered: Urnls Dip Stick Auto w/o Microscopy POC 06150 Orders: doxycycline, 100 mg = 1 cap(s), Oral, BID, may substitute hyclate for monohydrate based on availability, X 4 week(s), # 56 cap(s), Refills(s) 0, Pharmacy: [facility], 170, cm, 01/03/25 11:03:00 EST, Height/Length [...] me. Authenticat (more content not included)... Normal [facility] Comment on above: Result Comment: Elec [...] fL [facility] TBH EO # 0.1 [facility] PLT 203 [facility] RBC 5.33 [facility] WBC 4.2 [facility] Ambulatory Visit Summaryon 1 01-23-2024 Ambulatory [...] for choosing us for your care. Normal [facility] Urology Office/Clinic Noteon 11-22-2024 Urology Office/Clinic [...] with voice recognition artificial intelligence software, specifically [employer] and or [employer]. Substitutions may have occurred due to the [...] -Follow-up 4 months per patient preference Ordered: 19779 Measure Post Void residual urine and/or bladder capacity by US- non-imaging Urnls Dip Stick Auto w/o Microscopy POC 61591 2. Erectile dysfunction (N52.9: Male erectile dysfunction, [...] transplant in 2019 and follows yearly with [facility]. [1] Orders: tadalafil, 10 mg = 1 tab(s), Oral, As Directed, take 1 tab at least 1 hr prior to intercourse, do not exceed 20 mg (2 tab) in 24 hrs, # 30 tab(s), Refills(s) 5, Pharmacy: [facility], 170, cm, 11/22/24 9:39:00 EST, Height/Length Dosing, 90, kg, 12... tamsulosin, 0.4 mg = 1 cap(s), Oral, BID, X 30 day(s), # 60 cap(s), Refills(s) 11, Pharmacy: [facility], 170, cm, 09/08/24 14:00:00 EDT, Height/Length Dosing, 90, kg, 09/08/24 14:00:00 EDT, Weight Dosing tamsulosin, 0.4 mg = 1 cap(s), Oral, BID, X 90 day(s), # 180 cap(s), Refills(s) 3, Pharmacy: [facility], 170, cm, 09/08/24 14:00:00 EDT, Height/Length [...] liver disease (more content not included)... Normal [facility] Comment on above: Result Comment: Elec [...] [Ratio] 12.5 % 11.0 - 15.0 % [facility] Hematocrit (Bld) [Volume fraction] 47.5 % 42.0 - 54.0 % [facility] Hemoglobin (Bld) [Mass/Vol] 15.6 g/dL 14.0 - 18.0 g/dL [facility] IMMATURE GRANULOCYTES ABS AUTO 0 [facility] Immature granulocytes/100 WBC (Bld) 0 % 0.0 - 0.5 % [facility] LYMPHOCYTES ABSOLUTE AUTO 1.6 [facility] Lymphocytes/100 WBC (Bld) 36.3 % 20.5 - 60.0 % [facility] MCH (RBC) [Entitic mass] 28.6 pg 25.9 - 34.0 pg [facility] MCHC (RBC) [Mass/Vol] 32.8 g/dL 29.9 - 35.2 g/dL [facility] MCV (RBC) [Entitic vol] 87.2 fL 80.0 - 94.0 fL [facility] MONOCYTES ABSOLUTE AUTO 0.4 [facility] Monocytes/100 WBC (Bld) 9.8 % 1.7 - 12.0 % [facility] NEUTROPHILS ABSOLUTE AUTO 2.2 [facility] Neutrophils/100 WBC (Bld) 50.6 % 43.0 - 75.0 % [facility] Platelet mean volume (Bld) [Entitic vol] 9.5 fL 9.5 - 13.5 fL [facility] TBH EO # 0.1 [facility] PLT 230 [facility] RBC 5.45 [facility] WBC 4.3 [facility] ALL CBC WITH AUTO DIFFon BASOPHILS ABSOLUTE AUTO 0 [facility] Basophils/100 WBC (Bld) 0.5 % 0.2 - 2.0 % [facility] Eosinophils/100 WBC (Bld) 2.6 % 0.9 - 7.0 % [facility] Erythrocyte distribution width (RBC) [Ratio] 12.2 % 11.0 - 15.0 % [facility] Hematocrit (Bld) [Volume fraction] 47.7 % 42.0 - 54.0 % [facility] Hemoglobin (Bld) [Mass/Vol] 15.7 g/dL 14.0 - 18.0 g/dL [facility] IMMATURE GRANULOCYTES ABS AUTO 0.01 [facility] Immature granulocytes/100 WBC (Bld) 0.2 % 0.0 - 0.5 % [facility] Interpretation and review of laboratory results Abnormal [facility] LYMPHOCYTES ABSOLUTE AUTO 1.5 [facility] Lymphocytes/100 WBC (Bld) 37 % 20.5 - 60.0 % [facility] MCH (RBC) [Entitic mass] 28.9 pg 25.9 - 34.0 pg [facility] MCHC (RBC) [Mass/Vol] 32.9 g/dL 29.9 - 35.2 g/dL [facility] MCV (RBC) [Entitic vol] 87.8 fL 80.0 - 94.0 fL [facility] MONOCYTES ABSOLUTE AUTO 0.3 [facility] Monocytes/100 WBC (Bld) 7.7 % 1.7 - 12.0 % [facility] NEUTROPHILS ABSOLUTE AUTO 2.2 [facility] Neutrophils/100 WBC (Bld) 52 % 43.0 - 75.0 % [facility] Platelet mean volume (Bld) [Entitic vol] 9.3 fL Low 9.5 - 13.5 fL [facility] EO # 0.1 [facility] PLT 211 [facility] RBC 5.43 [facility] WBC 4.2 [facility] ALL CBC WITH AUTO DIFFon BASOPHILS ABSOLUTE AUTO 0 [facility] Basophils/100 WBC (Bld) 1 % 0.2 - 2.0 % [facility] Eosinophils/100 WBC (Bld) 2.9 % 0.9 - 7.0 % [facility] Erythrocyte distribution width (RBC) [Ratio] 12.3 % 11.0 - 15.0 % [facility] Hematocrit (Bld) [Volume fraction] 49.9 % 42.0 - 54.0 % [facility] Hemoglobin (Bld) [Mass/Vol] 16.5 g/dL 14.0 - 18.0 g/dL [facility] IMMATURE GRANULOCYTES ABS AUTO 0.01 [facility] Immature granulocytes/100 WBC (Bld) 0.2 % 0.0 - 0.5 % [facility] LYMPHOCYTES ABSOLUTE AUTO 1.3 [facility] Lymphocytes/100 WBC (Bld) 30.6 % 20.5 - 60.0 % [facility] MCH (RBC) [Entitic mass] 29.2 pg 25.9 - 34.0 pg [facility] MCHC (RBC) [Mass/Vol] 33.1 g/dL 29.9 - 35.2 g/dL [facility] MCV (RBC) [Entitic vol] 88.3 fL 80.0 - 94.0 fL [facility] MONOCYTES ABSOLUTE AUTO 0.4 [facility] Monocytes/100 WBC (Bld) 8.8 % 1.7 - 12.0 % [facility] NEUTROPHILS ABSOLUTE AUTO 2.4 [facility] Neutrophils/100 WBC (Bld) 56.5 % 43.0 - 75.0 % [facility] Platelet mean volume (Bld) [Entitic vol] 9.9 fL 9.5 - 13.5 fL [facility] EO # 0.1 [facility] PLT 245 [facility] TB RBC 5.65 [facility] WBC 4.2 [facility] ALL CBC WITH AUTO DIFFon BASOPHILS ABSOLUTE AUTO 0 [facility] Basophils/100 WBC (Bld) 0.6 % 0.2 - 2.0 % [facility] Eosinophils/100 WBC (Bld) 3.5 % 0.9 - 7.0 % [facility] Erythrocyte distribution width (RBC) [Ratio] 12.3 % 11.0 - 15.0 % [facility] Hematocrit (Bld) [Volume fraction] 47.1 % 42.0 - 54.0 % [facility] Hemoglobin (Bld) [Mass/Vol] 15.4 g/dL 14.0 - 18.0 g/dL [facility] IMMATURE GRANULOCYTES ABS AUTO 0.01 [facility] Immature granulocytes/100 WBC (Bld) 0.2 % 0.0 - 0.5 % [facility] LYMPHOCYTES ABSOLUTE AUTO 1.5 [facility] Lymphocytes/100 WBC (Bld) 31.7 % 20.5 - 60.0 % [facility] MCH (RBC) [Entitic mass] 28.9 pg 25.9 - 34.0 pg [facility] MCHC (RBC) [Mass/Vol] 32.7 g/dL 29.9 - 35.2 g/dL [facility] MCV (RBC) [Entitic vol] 88.4 fL 80.0 - 94.0 fL [facility] MONOCYTES ABSOLUTE AUTO 0.4 [facility] Monocytes/100 WBC (Bld) 8.6 % 1.7 - 12.0 % [facility] NEUTROPHILS ABSOLUTE AUTO 2.7 [facility] Neutrophils/100 WBC (Bld) 55.4 % 43.0 - 75.0 % [facility] Platelet mean volume (Bld) [Entitic vol] 9.7 fL 9.5 - 13.5 fL [facility]H EO # 0.2 [facility] TB PLT 238 [facility] RBC 5.33 [facility] WBC 4.8 [facility] ALL CBC WITH AUTO DIFFon BASOPHILS ABSOLUTE AUTO 0 [facility] Basophils/100 WBC (Bld) 0.6 % 0.2 - 2.0 % [facility] Eosinophils/100 WBC (Bld) 3.2 % 0.9 - 7.0 % [facility] Erythrocyte distribution width (RBC) [Ratio] 12.4 % 11.0 - 15.0 % [facility] Hematocrit (Bld) [Volume fraction] 47 % 42.0 - 54.0 % [facility] Hemoglobin (Bld) [Mass/Vol] 15.8 g/dL 14.0 - 18.0 g/dL [facility] IMMATURE GRANULOCYTES ABS AUTO 0.01 [facility] Immature granulocytes/100 WBC (Bld) 0.2 % 0.0 - 0.5 % [facility] Interpretation and review of laboratory results Abnormal [facility] LYMPHOCYTES ABSOLUTE AUTO 1.1 Low [facility] Lymphocytes/100 WBC (Bld) 22.8 % 20.5 - 60.0 % [facility] MCH (RBC) [Entitic mass] 29.6 pg 25.9 - 34.0 pg [facility] MCHC (RBC) [Mass/Vol] 33.6 g/dL 29.9 - 35.2 g/dL [facility] MCV (RBC) [Entitic vol] 88 fL 80.0 - 94.0 fL [facility] MONOCYTES ABSOLUTE AUTO 0.4 [facility] Monocytes/100 WBC (Bld) 8 % 1.7 - 12.0 % [facility] NEUTROPHILS ABSOLUTE AUTO 3.3 [facility] Neutrophils/100 WBC (Bld) 65.2 % 43.0 - 75.0 % [facility] Platelet mean volume (Bld) [Entitic vol] 9.3 fL Low 9.5 - 13.5 fL [facility] EO # 0.2 [facility] PLT 222 [facility] RBC 5.34 [facility] WBC 5 [facility] ALL CBC WITH AUTO DIFFon BASOPHILS ABSOLUTE AUTO 0 [facility] Basophils/100 WBC (Bld) 0.6 % 0.2 - 2.0 % [facility] Eosinophils/100 WBC (Bld) 2.9 % 0.9 - 7.0 % [facility] Erythrocyte distribution width (RBC) [Ratio] 12.5 % 11.0 - 15.0 % [facility] Hematocrit (Bld) [Volume fraction] 47.1 % 42.0 - 54.0 % [facility] Hemoglobin (Bld) [Mass/Vol] 15.2 g/dL 14.0 - 18.0 g/dL [facility] IMMATURE GRANULOCYTES ABS AUTO 0.01 [facility] Immature granulocytes/100 WBC (Bld) 0.2 % 0.0 - 0.5 % [facility] Interpretation and review of laboratory results Abnormal [facility] LYMPHOCYTES ABSOLUTE AUTO 1.6 [facility] Lymphocytes/100 WBC (Bld) 32.7 % 20.5 - 60.0 % [facility] MCH (RBC) [Entitic mass] 28.5 pg 25.9 - 34.0 pg [facility] MCHC (RBC) [Mass/Vol] 32.3 g/dL 29.9 - 35.2 g/dL [facility] MCV (RBC) [Entitic vol] 88.4 fL 80.0 - 94.0 fL [facility] MONOCYTES ABSOLUTE AUTO 0.4 [facility] Monocytes/100 WBC (Bld) 8.5 % 1.7 - 12.0 % [facility] NEUTROPHILS ABSOLUTE AUTO 2.6 [facility] Neutrophils/100 WBC (Bld) 55.1 % 43.0 - 75.0 % [facility] Platelet mean volume (Bld) [Entitic vol] 9.3 fL Low 9.5 - 13.5 fL [facility] EO # 0.1 [facility] PLT 225 [facility] RBC 5.33 [facility] WBC 4.8 [facility] ALL CBC WITH AUTO DIFFon BASOPHILS ABSOLUTE AUTO 0.0 [facility] Basophils/100 WBC (Bld) 0.6 % 0.2 - 2.0 % [facility] Eosinophils/100 WBC (Bld) 3.2 % 0.9 - 7.0 % [facility] Erythrocyte distribution width (RBC) [Ratio] 12.4 % 11.0 - 15.0 % [facility] Hematocrit (Bld) [Volume fraction] 48.1 % 42.0 - 54.0 % [facility] Hemoglobin (Bld) [Mass/Vol] 15.8 g/dL 14.0 - 18.0 g/dL [facility] IMMATURE GRANULOCYTES ABS AUTO 0.01 [facility] Immature granulocytes/100 WBC (Bld) 0.2 % 0.0 - 0.5 % [facility] LYMPHOCYTES ABSOLUTE AUTO 1.4 [facility] Lymphocytes/100 WBC (Bld) 28.5 % 20.5 - 60.0 % [facility] MCH (RBC) [Entitic mass] 28.8 pg 25.9 - 34.0 pg [facility] MCHC (RBC) [Mass/Vol] 32.8 g/dL 29.9 - 35.2 g/dL [facility] MCV (RBC) [Entitic vol] 87.8 fL 80.0 - 94.0 fL [facility] MONOCYTES ABSOLUTE AUTO 0.4 [facility] Monocytes/100 WBC (Bld) 8.6 % 1.7 - 12.0 % [facility] NEUTROPHILS ABSOLUTE AUTO 2.9 [facility] Neutrophils/100 WBC (Bld) 58.9 % 43.0 - 75.0 % [facility] Platelet mean volume (Bld) [Entitic vol] 9.8 fL 9.5 - 13.5 fL [facility] EO # 0.2 [facility] PLT 240 [facility] RBC 5.48 [facility] WBC 5.0 [facility] ALL CBC WITH AUTO DIFFon BASOPHILS ABSOLUTE AUTO 0.0 [facility] Basophils/100 WBC (Bld) 0.7 % 0.2 - 2.0 % [facility] Eosinophils/100 WBC (Bld) 2.7 % 0.9 - 7.0 % [facility] Erythrocyte distribution width (RBC) [Ratio] 12.4 % 11.0 - 15.0 % [facility] Hematocrit (Bld) [Volume fraction] 47.4 % 42.0 - 54.0 % [facility] Hemoglobin (Bld) [Mass/Vol] 15.6 g/dL 14.0 - 18.0 g/dL [facility] IMMATURE GRANULOCYTES ABS AUTO 0.01 [facility] Immature granulocytes/100 WBC (Bld) 0.2 % 0.0 - 0.5 % [facility] LYMPHOCYTES ABSOLUTE AUTO 1.3 [facility] Lymphocytes/100 WBC (Bld) 29.6 % 20.5 - 60.0 % [facility] MCH (RBC) [Entitic mass] 28.8 pg 25.9 - 34.0 pg [facility] MCHC (RBC) [Mass/Vol] 32.9 g/dL 29.9 - 35.2 g/dL [facility] MCV (RBC) [Entitic vol] 87.5 fL 80.0 - 94.0 fL [facility] MONOCYTES ABSOLUTE AUTO 0.4 [facility] Monocytes/100 WBC (Bld) 8.1 % 1.7 - 12.0 % [facility] NEUTROPHILS ABSOLUTE AUTO 2.6 [facility] Neutrophils/100 WBC (Bld) 58.7 % 43.0 - 75.0 % [facility] Platelet mean volume (Bld) [Entitic vol] 9.9 fL 9.5 - 13.5 [facility]L [facility] PLT 240 [facility] RBC 5.42 [facility] WBC 4.5 [facility] URINE T PROTEIN CREAT RA TIOon 08-15-2024 CREATININE URINE RANDOM 123.63 mg/dL 20.00 - 300.00 mg/dL [facility] Interpretation and review of laboratory results Abnormal [facility] Protein (U) [Mass/Vol] 14.4 mg/dL High NINF - 11.9 mg/dL [facility] PROTEIN CREATININE RATIO URINE 0.12 [facility] ALL CBC WITH AUTO DIFFon BASOPHILS ABSOLUTE AUTO 0.0 [facility] Basophils/100 WBC (Bld) 0.8 % 0.2 - 2.0 % [facility] Eosinophils/100 WBC (Bld) 1.8 % 0.9 - 7.0 % [facility] Erythrocyte distribution width (RBC) [Ratio] 12.2 % 11.0 - 15.0 % [facility] Hematocrit (Bld) [Volume fraction] 47.2 % 42.0 - 54.0 % [facility] Hemoglobin (Bld) [Mass/Vol] 15.7 g/dL 14.0 - 18.0 g/dL [facility] IMMATURE GRANULOCYTES ABS AUTO 0.01 [facility] Immature granulocytes/100 WBC (Bld) 0.2 % 0.0 - 0.5 % [facility] LYMPHOCYTES ABSOLUTE AUTO 1.5 [facility] Lymphocytes/100 WBC (Bld) 29.9 % 20.5 - 60.0 % [facility] MCH (RBC) [Entitic mass] 29.1 pg 25.9 - 34.0 pg [facility] MCHC (RBC) [Mass/Vol] 33.3 g/dL 29.9 - 35.2 g/dL [facility] MCV (RBC) [Entitic vol] 87.4 fL 80.0 - 94.0 fL [facility] MONOCYTES ABSOLUTE AUTO 0.4 [facility] Monocytes/100 WBC (Bld) 8.8 % 1.7 - 12.0 % [facility] NEUTROPHILS ABSOLUTE AUTO 2.9 [facility] Neutrophils/100 WBC (Bld) 58.5 % 43.0 - 75.0 % [facility] Platelet mean volume (Bld) [Entitic vol] 10.0 fL 9.5 - 13.5 fL [facility] EO # 0.1 [facility] PLT 238 [facility] RBC 5.40 [facility] WBC 4.9 [facility] URINE T PROTEIN CREAT RA TIOon 08-02-2024 CREATININE URINE RANDOM 134.02 mg/dL 20.00 - 300.00 mg/dL [facility] Interpretation and review of laboratory results Abnormal [facility] Protein (U) [Mass/Vol] 13.8 mg/dL High NINF - 11.9 mg/dL [facility] PROTEIN CREATININE RATIO URINE 0.10 [facility] 36on 06-01-2024 36 Regarding echo perfo rmed on 05/18/2024: MD Cinda Batres MA Please tell him the echo was ok and showed a small residual fluid around the heart. This is significant improvement from before. Follow up as planned. Patient informed and he verbalized understanding. Normal [facility] Office Visiton 05-13-2024 Follow-up visit [id number] George Styles Tray 1970 M Date Provider Department Center 05/13/2024 Júnior-MIGUEL CARDONA BESSY Domingoevpadmini Lopez Family History Problem Relation Age of Onset Coronary artery disease Mother Coronary artery disease Father Family Status - Relation Status Age at Mother Father Level of Service:13906 ID OFFICE/OUTPATIENT ESTABLISHED LOW MDM 20 MIN Reason for Visit and Comments: Follow-up [[id number]] - Yearly follow up Normal [facility] B-TYPE NATRIURETIC PEPTIDE ( BRAIN)on 02-26-2024 Interpretation and review of laboratory results Normal [facility] Natriuretic peptide B (Bld) [Mass/Vol] 72 pg/mL 0 - 100 pg/mL [facility] CHEM 6 (LYTES, BUN CREA)on 0 02-26-2024 Anion gap [Moles/Vol] 13 mmol/L 7 - 17 mmol/L [facility] Chloride [Moles/Vol] 107 mmol/L 98 - 10 8 mmol/L [facility] CO2 [Moles/Vol] 25 mmol/L 21 - 31 mmol/L [facility] Creatinine [Mass/Vol] 1.23 mg/dL 0.70 - 1.30 mg/dL [facility] eGFR, CKD-EPI, Male 71 - PINF [facility] Comment on above: Reported eGFR is bas ed on the CKD-EPI 2020 equation using creatinine, age, and sex. Potassium [Moles/Vol] 4.2 mmol/L 3.5 - 5.0 mmol/L [facility] Sodium [Moles/Vol] 141 mmol/L 135 - 145 mmol/L [facility] Urea nitrogen [Mass/Vol] 17 mg/dL 7 - 25 mg/dL [facility] Urea nitrogen/Creatinine [Mass ratio] 14 mg/mg [facility] CBC,PLATELETSon 01-23-2024 Erythrocyte distribution width (RBC) [Ratio] 14.2 % 10.9 - 14.3 % [facility] Hematocrit (Bld) [Volume fraction] 37.0 % Low 39.6 - 48.8 % [facility] Hemoglobin (Bld) [Mass/Vol] 12.0 g/dL Low 13.4 - 16.8 g/dL [facility] Interpretation and review of laboratory results Abnormal [facility] MCH (RBC) [Entitic mass] 28.6 pg 26.1 - 33.3 pg [facility] MCHC (RBC) [Mass/Vol] 32.4 g/dL 31.9 - 36.5 g/dL [facility] MCV (RBC) [Entitic vol] 88.1 fL 79.0 - 94.5 fL [facility] Platelet mean volume (Bld) [Entitic vol] 10.4 fL 8.7 - 12.3 fL [facility] Platelets (Bld) [#/Vol] 170 10*3/uL 146 - 337 K/uL [facility] RBC (Bld) [#/Vol] 4.20 10*6/uL Low [facility] WBC (Bld) [#/Vol] 3.70 10*3/uL Low 3.73 - 10. 10 K/uL [facility] CHEM 7 (LYTES,BUN,CREA,GLUC) on 01-23-2024 Anion gap [Moles/Vol] 14 mmol/L 7 - 17 mmol/L [facility] Chloride [Moles/Vol] 105 mmol/L 98 - 10 8 mmol/L [facility] CO2 [Moles/Vol] 25 mmol/L 21 - 31 mmol/L [facility] Creatinine [Mass/Vol] 1.32 mg/dL High 0.70 - 1.30 mg/dL [facility] eGFR, CKD-EPI, Male 65 - PINF [facility] Comment on above: Reported eGFR is bas ed on the CKD-EPI 2020 equation using creatinine, age, and sex. Glucose [Mass/Vol] 94 mg/dL 70 - 99 mg/dL [facility] Osmolality Calc [Osmolality] 296 [facility] Potassium [Moles/Vol] 3.8 mmol/L 3.5 - 5.0 mmol/L [facility] Sodium [Moles/Vol] 140 mmol/L 135 - 145 mmol/L [facility] Urea nitrogen [Mass/Vol] 23 mg/dL 7 - 25 mg/dL [facility] Urea nitrogen/Creatinine [Mass ratio] 17 mg/mg [facility] GLUCOSE POCon 01-23-2024 Glucose [Mass/Vol] 88 mg/dL 70 - 99 mg/dL [facility] POC Sample Type CAPBL [facility] Test performed at ad dress of the patient encounter. [facility] Glucose [Mass/Vol] 191 mg/dL High 70 - 99 mg/dL [facility] Interpretation and review of laboratory results Abnormal [facility] POC Sample Type CAPBL [facility] Test performed at ad dress of the patient encounter. [facility] HEPATIC FUNCTION PANELon Albumin [Mass/Vol] 3.9 g/dL 3.5 - 5.0 g/dL [facility] ALP [Catalytic activity/Vol] 83 U/L 32 - 126 U/L [facility] ALT [Catalytic activity/Vol] 9 U/L Low 10 - 52 U/L [facility] AST [Catalytic activity/Vol] 17 U/L 10 - 39 U/L [facility] Bilirubin [Mass/Vol] 1.6 mg/dL High NINF - 1.5 mg/dL [facility] Bilirubin.direct [Mass/Vol] 0.4 mg/dL High NINF - 0.3 mg/dL [facility] Protein [Mass/Vol] 6.6 g/dL 6.4 - 8.3 g/dL [facility] ITRACONAZOLE LEVELon 024 Hydroxyitraconazole [Mass/Vol] 7.6 mcg/mL [facility] Comment on above: REFERENCE VALUE No therapeutic range established; activity and serum concentration are similar to parent drug. ADDITIONAL INFORMATION This test was developed and its performance characteristics determined by [facility] in a manner consistent with CLIA requirements. This test has not been cleared or approved by the U.[place]. Food and Drug Administration. Test Performed by: [facility] [address] [place] [address] Maintainer Central Office: Rosendo Bose M.D. Ph.D.; CLIA# [id number] Itraconazole [Mass/Vol] 6.0 mcg/mL [facility] Comment on above: REFERENCE VALUE >0.5 (localized infection), >1.0 (systemic infection) [facility] MAGNESIUMon 01-23-2024 Interpretation and review of laboratory results Normal [facility] Magnesium [Mass/Vol] 1.8 mg/dL 1.6 - 2 .6 mg/dL [facility] No Panel Informationon 01-23 Interpretation and review of laboratory results Abnormal [facility] TACROLIMUS LEVEL, TROUGH (ID E DRUG LEVEL)on 01-23-2024 Interpretation and review of laboratory results Normal [facility] Tacrolimus (Bld) [Mass/Vol] 7.0 ng/mL Bone Marrow Transplant: 4.0-12.0, Therapeutic: 5.0-15.0 [facility] Method performed is a chemiluminescent microparticle immunoasssay on the [employer] i2000. The range is based on experience at [facility] and users should be aware that target concentrations vary widely depending on concomitant therapy, time post-transplant, and desired degree of immunosuppression. [facility] CARDIAC RHYTHM (SCANNED)on 0 01-22-2024 [facility] CBC,PLATELETSon 01-22-2024 Erythrocyte distribution width (RBC) [Ratio] 14.1 % 10.9 - 14.3 % [facility] Hematocrit (Bld) [Volume fraction] 41.5 % 39.6 - 48.8 % [facility] Hemoglobin (Bld) [Mass/Vol] 13.3 g/dL Low 13.4 - 16.8 g/dL [facility] Interpretation and review of laboratory results Abnormal [facility] MCH (RBC) [Entitic mass] 27.8 pg 26.1 - 33.3 pg [facility] MCHC (RBC) [Mass/Vol] 32.0 g/dL 31.9 - 36.5 g/dL [facility] MCV (RBC) [Entitic vol] 86.8 fL 79.0 - 94.5 fL [facility] Platelet mean volume (Bld) [Entitic vol] 10.5 fL 8.7 - 12.3 fL [facility] Platelets (Bld) [#/Vol] 186 10*3/uL 146 - 337 K/uL [facility] RBC (Bld) [#/Vol] 4.78 10*6/uL [facility] WBC (Bld) [#/Vol] 3.74 10*3/uL 3.73 - 10. 10 K/uL [facility] CHEM 7 (LYTES,BUN,CREA,GLUC) on 01-22-2024 Anion gap [Moles/Vol] 13 mmol/L 7 - 17 mmol/L [facility] Chloride [Moles/Vol] 109 mmol/L High 98 - 10 8 mmol/L [facility] CO2 [Moles/Vol] 23 mmol/L 21 - 31 mmol/L [facility] Creatinine [Mass/Vol] 1.10 mg/dL 0.70 - 1.30 mg/dL [facility] eGFR, CKD-EPI, Male 81 - PINF [facility] Comment on above: Reported eGFR is bas ed on the CKD-EPI 2020 equation using creatinine, age, and sex. Glucose [Mass/Vol] 84 mg/dL 70 - 99 mg/dL [facility] Interpretation and review of laboratory results Abnormal [facility] Osmolality Calc [Osmolality] 295 [facility] Potassium [Moles/Vol] 4.0 mmol/L 3.5 - 5.0 mmol/L [facility] Sodium [Moles/Vol] 141 mmol/L 135 - 145 mmol/L [facility] Urea nitrogen [Mass/Vol] 16 mg/dL 7 - 25 mg/dL [facility] Urea nitrogen/Creatinine [Mass ratio] 15 mg/mg [facility] MAGNESIUMon 01-22-2024 Interpretation and review of laboratory results Normal [facility] Magnesium [Mass/Vol] 2.0 mg/dL 1.6 - 2 .6 mg/dL [facility] No Panel Informationon 01-22 [facility] PT,INR,PTTon 01-22-2024 aPTT Coag (PPP) [Time] 29.2 s [facility] INR Coag (Bld) [Relative time] 1.1 {INR} 0.9 - 1.1 [facility] Interpretation and review of laboratory results Abnormal [facility] PT Coag (PPP) [Time] 14.3 s High [facility] TACROLIMUS LEVEL, TROUGH (ID E DRUG LEVEL)Ordered By: Sheree Jensen on 01-22-2024 Interpretation and review of laboratory results Normal [facility] Tacrolimus (Bld) [Mass/Vol] 7.9 ng/mL Bone Marrow Transplant: 4.0-12.0, Therapeutic: 5.0-15.0 [facility] Method performed is a chemiluminescent microparticle immunoasssay on the [employer] i2000. The range is based on experience at [facility] and users should be aware that target concentrations vary widely depending on concomitant therapy, time post-transplant, and desired degree of immunosuppression. [facility] TYPE AND SCREENon 01-22-2024 ABO/RH(D) TYPE Positive [facility] [place] Unspecified body regionOr dered By: Unassigned Pacs on 01-22-2024 [facility] Work Phone: [place] Unspecified body regionon 01-22-2024 Radiology Study observation (narrative) [facility] CBC,PLATELETSon 01-21-2024 Erythrocyte distribution width (RBC) [Ratio] 14.0 % 10.9 - 14.3 % [facility] Hematocrit (Bld) [Volume fraction] 39.4 % Low 39.6 - 48.8 % [facility] Hemoglobin (Bld) [Mass/Vol] 12.7 g/dL Low 13.4 - 16.8 g/dL [facility] Interpretation and review of laboratory results Abnormal [facility] MCH (RBC) [Entitic mass] 28.0 pg 26.1 - 33.3 pg [facility] [facility] MCHC (RBC) [Mass/Vol] 32.2 g/dL 31.9 - 36.5 g/dL [facility] MCV (RBC) [Entitic vol] 87.0 fL 79.0 - 94.5 fL [facility] Platelet mean volume (Bld) [Entitic vol] 10.2 fL 8.7 - 12.3 fL [facility] Platelets (Bld) [#/Vol] 157 10*3/uL 146 - 337 K/uL [facility] RBC (Bld) [#/Vol] 4.53 10*6/uL [facility] WBC (Bld) [#/Vol] 3.42 10*3/uL Low 3.73 - 10. 10 K/uL [facility] CHEM 7 (LYTES,BUN,CREA,GLUC) on 01-21-2024 Anion gap [Moles/Vol] 12 mmol/L 7 - 17 mmol/L [facility] Chloride [Moles/Vol] 107 mmol/L 98 - 10 8 mmol/L [facility] CO2 [Moles/Vol] 26 mmol/L 21 - 31 mmol/L [facility] Creatinine [Mass/Vol] 1.11 mg/dL 0.70 - 1.30 mg/dL [facility] eGFR, CKD-EPI, Male 80 - PINF [facility] Comment on above: Reported eGFR is bas ed on the CKD-EPI 2020 equation using creatinine, age, and sex. Glucose [Mass/Vol] 93 mg/dL 70 - 99 mg/dL [facility] Osmolality Calc [O[facility]olality] [facility] Potassium [Moles/Vol] 3.9 mmol/L 3.5 - 5.0 mmol/L [facility] Sodium [Moles/Vol] 141 mmol/L 135 - 145 mmol/L [facility] Urea nitrogen [Mass/Vol] 15 mg/dL 7 - 25 mg/dL [facility] Urea nitrogen/Creatinine [Mass ratio] 14 mg/mg [facility] Cardiac catheterization stud yOrdered By: Kelvin Donohue on 01-21-2024 Body surface area Derived from formula 2.08 m2 [facility] Work Phone: [facility] Work Phone: Cardiac catheterization stud yon 01-21-2024 [...] with fistula occlusion Kelvin Donohue MD, MPH [employer] Engineer of Internal Medicine. Section of Advanced Heart Failure and Transplantation Division of Cardiovascular Diseases [facility] [email or web address] [email or web address] 01-21-2024 Interpretation and review of laboratory results Abnormal [facility] Magnesium [Mass/Vol] 1.5 mg/dL Low 1.6 - 2 .6 mg/dL [facility] No Panel Informationon 01-21 [facility] TACROLIMUS LEVEL, TROUGH (ID E DRUG LEVEL)on 01-21-2024 Interpretation and review of laboratory results Normal [facility] Tacrolimus (Bld) [Mass/Vol] 7.2 ng/mL Bone Marrow Transplant: 4.0-12.0, Therapeutic: 5.0-15.0 [facility] Method performed is a chemiluminescent microparticle immunoasssay on the [employer] i2000. The range is based on experience at [facility] and users should be aware that target concentrations vary widely depending on concomitant therapy, time post-transplant, and desired degree of immunosuppression. [facility] CBC,PLATELETSon 01-20-2024 Erythrocyte distribution width (RBC) [Ratio] 13.8 % 10.9 - 14.3 % [facility] Hematocrit (Bld) [Volume fraction] 38.9 % Low 39.6 - 48.8 % [facility] Hemoglobin (Bld) [Mass/Vol] 12.5 g/dL Low 13.4 - 16.8 g/dL [facility] Interpretation and review of laboratory results Abnormal [facility] MCH (RBC) [Entitic mass] 28.0 pg 26.1 - 33.3 pg [facility] MCHC (RBC) [Mass/Vol] 32.1 g/dL 31.9 - 36.5 g/dL [facility] MCV (RBC) [Entitic vol] 87.2 fL 79.0 - 94.5 fL [facility] Platelet mean volume (Bld) [Entitic vol] 10.2 fL 8.7 - 12.3 fL [facility] Platelets (Bld) [#/Vol] 166 10*3/uL 146 - 337 K/uL [facility] RBC (Bld) [#/Vol] 4.46 10*6/uL [facility] WBC (Bld) [#/Vol] 3.79 10*3/uL 3.73 - 10. 10 K/uL [facility] CHEM 7 (LYTES,BUN,CREA,GLUC) on 01-20-2024 Anion gap [Moles/Vol] 12 mmol/L 7 - 17 mmol/L [facility] Chloride [Moles/Vol] 105 mmol/L 98 - 10 8 mmol/L [facility] CO2 [Moles/Vol] 28 mmol/L 21 - 31 mmol/L [facility] Creatinine [Mass/Vol] 1.12 mg/dL 0.70 - 1.30 mg/dL [facility] eGFR, CKD-EPI, Male 79 - PINF [facility] Comment on above: Reported eGFR is bas ed on the CKD-EPI 2020 equation using creatinine, age, and sex. Glucose [Mass/Vol] 88 mg/dL 70 - 99 mg/dL [facility] Osmolality Calc [Osmolality] 294 [facility] Potassium [Moles/Vol] 3.8 mmol/L 3.5 - 5.0 mmol/L [facility] Sodium [Moles/Vol] 141 mmol/L 135 - 145 mmol/L [facility] Urea nitrogen [Mass/Vol] 15 mg/dL 7 - 25 mg/dL [facility] Urea nitrogen/Creatinine [Mass ratio] 13 mg/mg [facility] Cardiac catheterization stud yon 01-20-2024 [facility] Radiology Study observation (narrative) [facility] Radiology Study observation (narrative) [facility] EBV BY PCR, QUANTITATIVE,BLO ODOrdered By: Charlotte Jensen on 01-20-2024 EBV DNA ESTELITA+probe (Unsp spec) [#/Vol] NINF [facility] Interpretation and review of laboratory results Normal [facility] This test was perfor med using a real time PCR assay. The dynamic range for this assay is 1000-5,000,000 IU/mL. A result <1000 IU/mL does not rule out the presence of EBV DNA in quantities below the sensitivity of this assay. This test was developed and its performance characteristics determined by [facility]. It has not been cleared or approved by the FDA. The laboratory is regulated under CLIA as qualified to perform high-complexity testing. This test is used for clinical purposes. It should not be regarded as investigational or for research. [facility] HEPATIC FUNCTION PANELon Albumin [Mass/Vol] 3.7 g/dL 3.5 - 5.0 g/dL [facility] ALP [Catalytic activity/Vol] 73 U/L 32 - 126 U/L [facility] ALT [Catalytic activity/Vol] 12 U/L 10 - 52 U/L [facility] AST [Catalytic activity/Vol] 19 U/L 10 - 39 U/L [facility] Bilirubin [Mass/Vol] 2.1 mg/dL High NINF - 1.5 mg/dL [facility] Bilirubin.direct [Mass/Vol] 0.5 mg/dL High NINF - 0.3 mg/dL [facility] Interpretation and review of laboratory results Abnormal [facility] Protein [Mass/Vol] 6.1 g/dL Low 6.4 - 8.3 g/dL [facility] MAGNESIUMon 01-20-2024 Interpretation and review of laboratory results Normal [facility] Magnesium [Mass/Vol] 1.6 mg/dL 1.6 - 2 .6 mg/dL [facility] No Panel Informationon 01-20 [facility] POCT CO-OXIMETRYon Hemoglobin (Bld) [Mass/Vol] 12.8 g/dL Low 13.4 - 16.8 g/dL [facility] Interpretation and review of laboratory results Abnormal [facility] Oxyhemoglobin 69 % Low 94 - 98 % [facility] Ordering physician notified. Test performed at address of the patient encounter. [facility] Hemoglobin (Bld) [Mass/Vol] 13.3 g/dL Low 13.4 - 16.8 g/dL [facility] Interpretation and review of laboratory results Abnormal [facility] Oxyhemoglobin 69 % Low 94 - 98 % [facility] Ordering physician notified. Test performed at address of the patient encounter. [facility] PT,INR,PTTon 01-20-2024 aPTT Coag (PPP) [Time] 30.6 s [facility] INR Coag (Bld) [Relative time] 1.2 {INR} High 0.9 - 1.1 [facility] Interpretation and review of laboratory results Abnormal [facility] PT Coag (PPP) [Time] 15.5 s High [facility] TACROLIMUS LEVEL, TROUGH (ID E DRUG LEVEL)Ordered By: Yanira Marcum on 01-20-2024 Interpretation and review of laboratory results Normal [facility] Tacrolimus (Bld) [Mass/Vol] 7.7 ng/mL Bone Marrow Transplant: 4.0-12.0, Therapeutic: 5.0-15.0 [facility] Method performed is a chemiluminescent microparticle immunoasssay on the [employer] i2000. The range is based on experience at [facility] and users should be aware that target concentrations vary widely depending on concomitant therapy, time post-transplant, and desired degree of immunosuppression. [facility] CBC,PLATELETSon 01-19-2024 Erythrocyte distribution width (RBC) [Ratio] 13.9 % 10.9 - 14.3 % [facility] Hematocrit (Bld) [Volume fraction] 37.5 % Low 39.6 - 48.8 % [facility] Hemoglobin (Bld) [Mass/Vol] 12.1 g/dL Low 13.4 - 16.8 g/dL [facility] Interpretation and review of laboratory results Abnormal [facility] MCH (RBC) [Entitic mass] 28.3 pg 26.1 - 33.3 pg [facility] MCHC (RBC) [Mass/Vol] 32.3 g/dL 31.9 - 36.5 g/dL [facility] MCV (RBC) [Entitic vol] 87.8 fL 79.0 - 94.5 fL [facility] Platelet mean volume (Bld) [Entitic vol] 10.4 fL 8.7 - 12.3 fL [facility] Platelets (Bld) [#/Vol] 163 10*3/uL 146 - 337 K/uL [facility] RBC (Bld) [#/Vol] 4.27 10*6/uL Low [facility] WBC (Bld) [#/Vol] 3.69 10*3/uL Low 3.73 - 10. 10 K/uL [facility] CHEM 7 (LYTES,BUN,CREA,GLUC) on 01-19-2024 Anion gap [Moles/Vol] 14 mmol/L 7 - 17 mmol/L [facility] Chloride [Moles/Vol] 106 mmol/L 98 - 10 8 mmol/L [facility] CO2 [Moles/Vol] 24 mmol/L 21 - 31 mmol/L [facility] Creatinine [Mass/Vol] 1.13 mg/dL 0.70 - 1.30 mg/dL [facility] eGFR, CKD-EPI, Male 78 - PINF [facility] Comment on above: Reported eGFR is bas ed on the CKD-EPI 2020 equation using creatinine, age, and sex. Glucose [Mass/Vol] 86 mg/dL 70 - 99 mg/dL [facility] Calc [[facility]olality] [facility] Potassium [Moles/Vol] 3.8 mmol/L 3.5 - 5.0 mmol/L [facility] Sodium [Moles/Vol] 140 mmol/L 135 - 145 mmol/L [facility] Urea nitrogen [Mass/Vol] 16 mg/dL 7 - 25 mg/dL [facility] Urea nitrogen/Creatinine [Mass ratio] 14 mg/mg [facility] HISTOPLASMA AND BLASTOMYCES ANTIGEN, ENZYME IMMUNOASSAY, SERMon 01-19-2024 Histoplasma/Blastomy antonia Ag Result Not detected Not Detected [facility] Comment on above: No antigen from Hist oplasma or Blastomyces detected. False negative results may occur depending on extent of disease, and/or site of infection. Repeat testing on a new specimen if clinically indicated. Histoplasma/Blastomy antonia Ag Value Not detected ng/mL [facility] Comment on above: ADDITIONAL INFORMATION This test was developed and its performance characteristics determined by [facility] in a manner consistent with CLIA requirements. This test has not been cleared or approved by the U.S. Food and Drug Administration. Test Performed by: [facility] - [address] [address] Maintainer Central Office: Rosendo Bose M.D. Ph.D.; CLIA# [id number] [facility] MAGNESIUMon 01-19-2024 Interpretation and review of laboratory results Normal [facility] Magnesium [Mass/Vol] 1.8 mg/dL 1.6 - 2 .6 mg/dL [facility] No Panel Informationon 01-19 [facility] TACROLIMUS LEVEL, TROUGH (ID E DRUG LEVEL)Ordered By: Raymundo Mehta on 01-19-2024 Interpretation and review of laboratory results Normal [facility] Tacrolimus (Bld) [Mass/Vol] 6.8 ng/mL Bone Marrow Transplant: 4.0-12.0, Therapeutic: 5.0-15.0 [facility] Method performed is a chemiluminescent microparticle immunoasssay on the [employer]immer i2000. The range is based on experience at [facility] and users should be aware that target concentrations vary widely depending on concomitant therapy, time post-transplant, and desired degree of immunosuppression. [facility] US AV fistulaOrdered By: Diana Reyes on 01-19-2024 [facility] Work Phone: US AV fistulaon 01-19-2024 Radiology Study observation (narrative) [facility] AFP TUMOR MARKEROrdered By: Francisca Alaniz on 01-18-2024 AFP.tumor marker [Mass/Vol] ng/mL NINF - 8.1 ng/mL [facility] Comment on above: This test was perfor med on the [employer] Immunoassay platform by [employer] which is a two-site sandwich chemiluminescent immunoassay. It is important to note that assays using different manufacturers and/or methods may not be comparable. Interpretation and review of laboratory results Normal [facility] CBC,PLATELETSon 01-18-2024 Erythrocyte distribution width (RBC) [Ratio] 13.9 % 10.9 - 14.3 % [facility] Hematocrit (Bld) [Volume fraction] 38.4 % Low 39.6 - 48.8 % [facility] Hemoglobin (Bld) [Mass/Vol] 12.1 g/dL Low 13.4 - 16.8 g/dL [facility] Interpretation and review of laboratory results Abnormal [facility] MCH (RBC) [Entitic mass] 27.8 pg 26.1 - 33.3 pg [facility] MCHC (RBC) [Mass/Vol] 31.5 g/dL Low 31.9 - 36.5 g/dL [facility] MCV (RBC) [Entitic vol] 88.3 fL 79.0 - 94.5 fL [facility] Platelet mean volume (Bld) [Entitic vol] 10.4 fL 8.7 - 12.3 fL [facility] Platelets (Bld) [#/Vol] 183 10*3/uL 146 - 337 K/uL [facility] RBC (Bld) [#/Vol] 4.35 10*6/uL Low [facility] WBC (Bld) [#/Vol] 3.66 10*3/uL Low 3.73 - 10. 10 K/uL [facility] CHEM 7 (LYTES,BUN,CREA,GLUC) on 01-18-2024 Anion gap [Moles/Vol] 11 mmol/L 7 - 17 mmol/L [facility] Chloride [Moles/Vol] 108 mmol/L 98 - 10 8 mmol/L [facility] CO2 [Moles/Vol] 26 mmol/L 21 - 31 mmol/L [facility] Creatinine [Mass/Vol] 1.00 mg/dL 0.70 - 1.30 mg/dL [facility] eGFR, CKD-EPI, Male - PINF [facility] Comment on above: Reported eGFR is bas ed on the CKD-EPI 2020 equation using creatinine, age, and sex. Glucose [Mass/Vol] 89 mg/dL 70 - 99 mg/dL [facility] Osmolality Calc [Osmolality] [facility] Potassium [Moles/Vol] 3.9 mmol/L 3.5 - 5.0 mmol/L [facility] Sodium [Moles/Vol] 141 mmol/L 135 - 145 mmol/L [facility] Urea nitrogen [Mass/Vol] 16 mg/dL 7 - 25 mg/dL [facility] Urea nitrogen/Creatinine [Mass ratio] 16 mg/mg [facility] Cardiac echo study Procedure Ordered By: Gian Carlos on 01-18-2024 Ao ASC index 1.63 cm/m2 [facility] Work Phone: Ao peak meliton 1.46 m/s [facility] Work Phone: Ao SOV index 1.56 cm/m2 [facility] Work Phone: Ao STJ index 1.25 cm/m2 [facility] Work Phone: Ao VTI 35.74 cm [facility] Work Phone: Ascending aorta 3.[address] [facility] Work Phone: AV LVOT peak gradient 4 mmHg [facility] Work Phone: AV mean gradient 5 [facility] peak gradient 9 mmHG [facility] Work Phone: AV valve area 3.09 cm2 [facility]: VEGA (continuity Vmax) 3.01 cm2 [facility] Work Phone: VEGA (continuity VTI) 3.09 cm2 [facility] Work Phone: VEGA index (continuity Vmax) 1.45 m/s [facility] Work Phone: VEGA index (continuity VTI) 1.49 cm2/m2 [facility] Work Phone: Avg e' pk meliton 0.07 m/s [facility] Work Phone: Avg E/e' ratio 19.45 [facility] Work Phone: Body surface area Derived from formula 2.08 m2 [facility] Work Phone: BP EF 62 % [facility] Work [facility]: DI (Vmax) 0.73 [facility] Work Phone: DI (VTI) 0.74 m/2 [facility] Work Phone: E wave decelartion time 180.38 msec [facility] Work Phone: e' lateral pk meliton 0.0789 m[facility]s [facility]: e' lateral pk meliton 0.08 m/s [facility] Work Phone: e' septal pk meliton 0.0653 m/s [facility] Work Phone: e' septal pk meliton 0.07 m/s [facility] Work Phone: E/A ratio 2.67 [facility] Work Phone: E/e' lateral ratio 17.62 [facility] Work Phone: E/e' septal ratio 21.29 [facility] Work Phone: EF SP 2CH 66 [facility] Work Phone: EF SP 4CH 58 [facility] Work Phone: FS 28 % 28 - 44 % [facility] Work Phone: IVC ostium 2.30 cm [facility] Work Phone: IVS 1.11 cm [facility] Work Phone: LA AREA 2CH 24.36 cm2 [facility] Work Phone: LA area 4CH 20.36 cm2 [facility] Work Phone: LA ESV BP (MOD) 64 [facility] Work Phone: LA ESV BP (MOD) index 31 mL/m2 [facility] Work Phone: LA ESV SP 2CH (MOD) 76 mL [facility] Work Phone: LA ESV SP 4CH (MOD) 53 mL [facility] Work Phone: LV EDV BP 180 mL [facility] Work Phone: LV EDV SP 2CH 190 mL [facility] Work Phone: LV EDV SP 4CH 166 mL [facility] Work Phone: LV ESV BP 69 mL [facility] Work [facility]: LV ESV SP 2CH 65 mL [facility] Work Phone: LV ESV SP 4CH 70 mL [facility] Work Phone: LV mass 254.73 g [facility] Work [facility]: LV Mass Index 122.5 g/m2 [facility] Work Phone: LV RWT 0.42 [facility] Work Phone: LV stroke volume BP (ml) 111 mL [facility] Work Phone: LV stroke volume index BP 53.37 mL/m2 [facility] Work Phone: LVIDD 5.53 cm [facility] Work Phone: LVIDS 3.97 cm [facility] Work Phone: LVOT area 4.15 cm2 [facility] Work Phone: LVOT diameter 2.30 cm [facility] Work Phone: LVOT peak meliton 1.06 m/s [facility] Work Phone: LVOT peak VTI 26.61 cm [facility] Work Phone: LVOT stroke volume 111 cm3 [facility] Work Phone: LVOT stroke volume index 53.13 ml/m2 [facility] Work Phone: Mr max meliton 4.21 m/s [facility] Work Phone: [phone] MR VTI 134.50 cm [facility] Work [facility]: MV mean gradient 3 mmHg [facility] Work Phone: MV peak gradient 11 mmHg [facility] Work Phone: MV pk A meliton 0.52 m/s [facility] Work Phone: MV pk E meliton 1.39 m/s [facility] Work [facility]: MV stenosis pressure 1/2 time 58.56 ms [facility] Work Phone: MV valve area by continuity eq 2.93 cm2 [facility] Work Phone: MV valve area p 1/2 method 3.76 cm2 [facility] Work Phone: MV VTI 37.70 cm [facility] Work Phone: MVA (continuity VTI) 2.92 cm [facility] Work Phone: OSU AV VTI RATIO PRE STRESS 0.74 [facility] Work Phone: [facility]SU ECHO LV BIPLANE SYSTOLIC VOLUME INDEX 33.17 mL/m2 [facility] Work Phone: [facility] ECHO LV BP DIASTOLIC VOLUME INDEX 86.54 mL/m2 [facility] Work Phone: [facility] ECHO MR PEAK GRADIENT 70.94 mmHg [facility] Work Phone: PW 1.16 cm [facility] Work Phone: RA area 4CH (MOD) 14.50 cm2 [facility] Work Phone: RA vol index 4CH (MOD) 18.27 mL/m2 [facility] Work Phone: Right atrium volume 4 chamber method of disks 38 mL [facility] Work Phone: RV Area diastolic 33.20 cm2 [facility] Work Phone: RV Area systolic 21.30 cm2 [facility] Work Phone: RV basal diam 4.52 cm [facility] Work Phone: RV Fractional area change 35.8 % [facility] Work [facility]: RV long diam 8.96 cm [facility] Work Phone: RV mid diam 3.70 cm [facility] Work Phone: RV S' 22.01 cm/s [facility] Work Phone: RVOT peak gradient 4 mmHg [facility] Work Phone: RVOT peak meliton 0.96 m/s [facility] Work Phone: RVOT peak VTI 20.86 cm [facility] Work Phone: Sinus 3.24 cm [facility] Work Phone: STJ 2.61 cm [facility] Work Phone: Stroke Volume 111 cm/mL [facility] Work Phone: Stroke volume index 53 [facility] Work Phone: TAPSE 2.19 cm [facility] Work Phone: [facility] Work Phone: Cardiac echo study Procedure on [...] echocardiography study was performed. Imaging system used: [employer]. Indications Indications for study: shortness of breath. [facility] Radiology Study observation (narrative) [facility] HEPATIC FUNCTION PANELon Albumin [Mass/Vol] 3.5 g/dL 3.5 - 5.0 g/dL [facility] ALP [Catalytic activity/Vol] 70 U/L 32 - 126 U/L [facility] ALT [Catalytic activity/Vol] 8 U/L Low 10 - 52 U/L [facility] AST [Catalytic activity/Vol] 20 U/L 10 - 39 U/L [facility] Bilirubin [Mass/Vol] 1.7 mg/dL High NINF - 1.5 mg/dL [facility] Bilirubin.direct [Mass/Vol] 0.4 mg/dL High NINF - 0.3 mg/dL [facility] Protein [Mass/Vol] 6.0 g/dL Low 6.4 - 8.3 g/dL [facility] MAGNESIUMon 01-18-2024 Magnesium [Mass/Vol] 1.5 mg/dL Low 1.6 - 2 .6 mg/dL [facility] No Panel Informationon 01-18 Interpretation and review of laboratory results Abnormal [facility] PT,INR,PTTon 01-18-2024 aPTT Coag (PPP) [Time] 30.0 s [facility] INR Coag (Bld) [Relative time] 1.1 {INR} 0.9 - 1.1 [facility] Interpretation and review of laboratory results Abnormal [facility] PT Coag (PPP) [Time] 14.5 s High [facility] TSH W/FT4 REFLEXon Interpretation and review of laboratory results Normal [facility] TSH Qn 2.660 m[IU]/L [facility] DARYL AURIS SCREEN BY PCRO rdered By: Mynor Alejandro on 01-17-2024 Daryl auris Screen by PCR Not detected Not Detected [facility] Interpretation and review of laboratory results Normal [facility] This test was perfor med using a real-time PCR assay. This test was developed, and its performance characteristics determined by [facility]. It has not been cleared or approved by the FDA. The laboratory is regulated under CLIA as qualified to perform high-complexity testing. This test is used for clinical purposes. It should not be regarded as investigational or for research. [facility] CBC,PLATELETSon 01-17-2024 Erythrocyte distribution width (RBC) [Ratio] 14.0 % 10.9 - 14.3 % [facility] Hematocrit (Bld) [Volume fraction] 37.2 % Low 39.6 - 48.8 % [facility] Hemoglobin (Bld) [Mass/Vol] 12.0 g/dL Low 13.4 - 16.8 g/dL [facility] Interpretation and review of laboratory results Abnormal [facility] MCH (RBC) [Entitic mass] 27.9 pg 26.1 - 33.3 pg [facility] MCHC (RBC) [Mass/Vol] 32.3 g/dL 31.9 - 36.5 g/dL [facility] MCV (RBC) [Entitic vol] 86.5 fL 79.0 - 94.5 fL [facility] Platelet mean volume (Bld) [Entitic vol] 10.5 fL 8.7 - 12.3 fL [facility] Platelets (Bld) [#/Vol] 159 10*3/uL 146 - 337 K/uL [facility] RBC (Bld) [#/Vol] 4.30 10*6/uL Low [facility] WBC (Bld) [#/Vol] 3.69 10*3/uL Low 3.73 - 10. 10 K/uL [facility] CHEM 7 (LYTES,BUN,CREA,GLUC) on 01-17-2024 Anion gap [Moles/Vol] 13 mmol/L 7 - 17 mmol/L [facility] Chloride [Moles/Vol] 109 mmol/L High 98 - 10 8 mmol/L [facility] CO2 [Moles/Vol] 21 mmol/L 21 - 31 mmol/L [facility] Creatinine [Mass/Vol] 1.04 mg/dL 0.70 - 1.30 mg/dL [facility] eGFR, CKD-EPI, Male 86 - PINF [facility] Comment on above: Reported eGFR is bas ed on the CKD-EPI 2020 equation using creatinine, age, and sex. Glucose [Mass/Vol] 82 mg/dL 70 - 99 mg/dL [facility] Potassium [Moles/Vol] 4.4 mmol/L 3.5 - 5.0 mmol/L [facility] Sodium [Moles/Vol] 139 mmol/L 135 - 145 mmol/L [facility] Urea nitrogen [Mass/Vol] 17 mg/dL 7 - 25 mg/dL [facility] Urea nitrogen/Creatinine [Mass ratio] 16 mg/mg [facility] CT Abdomen and Pelvis WO con [...] unremarkable. Kidneys: Severe atrophy of the bilateral [place] kidney is without hydronephrosis. Right lower quadrant [...] unremarkable. Kidneys: Severe atrophy of the bilateral [place] kidney is without hydronephrosis. Right lower quadrant [...] the middle lobe. Trace left pleural effusion. [facility] Radiology Study observation (narrative) [facility] HEPATIC FUNCTION PANELon Albumin [Mass/Vol] 3.5 g/dL 3.5 - 5.0 g/dL [facility] ALP [Catalytic activity/Vol] 73 U/L 32 - 126 U/L [facility] ALT [Catalytic activity/Vol] 7 U/L Low 10 - 52 U/L [facility] AST [Catalytic activity/Vol] 25 U/L 10 - 39 U/L [facility] Bilirubin [Mass/Vol] 1.8 mg/dL High NINF - 1.5 mg/dL [facility] Bilirubin.direct [Mass/Vol] 0.3 mg/dL High NINF - 0.3 mg/dL [facility] Protein [Mass/Vol] 6.0 g/dL Low 6.4 - 8.3 g/dL [facility] MAGNESIUMon 01-17-2024 Interpretation and review of laboratory results Normal [facility] Magnesium [Mass/Vol] 1.7 mg/dL 1.6 - 2 .6 mg/dL [facility] No Panel Informationon 01-17 Interpretation and review of laboratory results Abnormal [facility] PT,INR,PTTon 01-17-2024 aPTT Coag (PPP) [Time] 29.9 s [facility] INR Coag (Bld) [Relative time] 1.1 {INR} 0.9 - 1.1 [facility] Interpretation and review of laboratory results Abnormal [facility] PT Coag (PPP) [Time] 14.5 s High [facility] B-TYPE NATRIURETIC PEPTIDE ( BRAIN)on 01-16-2024 Interpretation and review of laboratory results Abnormal [facility] Natriuretic peptide B (Bld) [Mass/Vol] 212 pg/mL High 0 - 100 pg/mL [facility] CALCIUMon 01-16-2024 Calcium [Mass/Vol] 8.5 mg/dL Low 8.6 - 10. 5 mg/dL [facility] CBC AND ELECTRONIC DIFFon Basophils (Bld) [#/Vol] K/uL 0.00 - 0.09 K/uL [facility] Basophils/100 WBC (Bld) 0.6 % [facility] Differential cell count method Nom (Bld) Electronic Differential [facility] Eosinophils (Bld) [#/Vol] 0.09 10*3/uL 0.00 - 0.48 K/uL [facility] Eosinophils/100 WBC (Bld) 2.5 % [facility] Erythrocyte distribution width (RBC) [Ratio] 14.0 % 10.9 - 14.3 % [facility] Hematocrit (Bld) [Volume fraction] 37.4 % Low 39.6 - 48.8 % [facility] Hemoglobin (Bld) [Mass/Vol] 12.1 g/dL Low 13.4 - 16.8 g/dL [facility] Immature granulocytes (Bld) [#/Vol] K/uL NINF - 0.07 K/uL [facility] Immature granulocytes/100 WBC (Bld) 0.3 % [facility] Interpretation and review of laboratory results Abnormal [facility] Lymphocytes (Bld) [#/Vol] 1.16 10*3/uL 0.83 - 3.57 K/uL [facility] Lymphocytes/100 WBC (Bld) 32.0 % [facility] MCH (RBC) [Entitic mass] 28.4 pg 26.1 - 33.3 pg [facility] MCHC (RBC) [Mass/Vol] 32.4 g/dL 31.9 - 36.5 g/dL [facility] MCV (RBC) [Entitic vol] 87.8 fL 79.0 - 94.5 fL [facility] Monocytes (Bld) [#/Vol] 0.43 10*3/uL 0.24 - 0.93 K/uL [facility] Monocytes/100 WBC (Bld) 11.9 % [facility] Neutrophils (Bld) [#/Vol] 1.91 10*3/uL 1.57 - 6.19 K/uL [facility] Nucleated RBC/100 WBC (Bld) [Ratio] 0.0 % [facility] Platelet mean volume (Bld) [Entitic vol] 10.1 fL 8.7 - 12.3 fL [facility] Platelets (Bld) [#/Vol] 155 10*3/uL 146 - 337 K/uL [facility] RBC (Bld) [#/Vol] 4.26 10*6/uL Low [facility] Segmented neutrophils/100 WBC (Bld) 52.7 % [facility] WBC (Bld) [#/Vol] 3.62 10*3/uL Low 3.73 - 10. 10 K/uL [facility] CHEM 7 (LYTES,BUN,CREA,GLUC) on 01-16-2024 Anion gap [Moles/Vol] 11 mmol/L 7 - 17 mmol/L [facility] Chloride [Moles/Vol] 108 mmol/L 98 - 10 8 mmol/L [facility] CO2 [Moles/Vol] 24 mmol/L 21 - 31 mmol/L [facility] Creatinine [Mass/Vol] 1.04 mg/dL 0.70 - 1.30 mg/dL [facility] eGFR, CKD-EPI, Male 86 - PINF [facility] Comment on above: Reported eGFR is bas ed on the CKD-EPI 2020 equation using creatinine, age, and sex. Glucose [Mass/Vol] 95 mg/dL 70 - 99 mg/dL [facility] Osmolality Calc [Osmolality] 293 [facility] Potassium [Moles/Vol] 4.0 mmol/L 3.5 - 5.0 mmol/L [facility] Sodium [Moles/Vol] 139 mmol/L 135 - 145 mmol/L [facility] Urea nitrogen [Mass/Vol] 19 mg/dL 7 - 25 mg/dL [facility] Urea nitrogen/Creatinine [Mass ratio] 18 mg/mg [facility] D-DIMER,QUANTITATIVEOrdered By: Shaji Kelly on 01-16-2024 Fibrin D-dimer FEU (PPP) [Mass/Vol] 0.67 High [facility] Comment on above: The D-Dimer assay is intended for use in conjuction with a clinical pretest probability (PTP) assessment model to exclude pulmonary embolism (PE) and as an aid in the diagnosis of Deep Vein Thrombosis (DVT) in outpatients suspected of PE or DVT. For the assay in use at [facility] ([facility]), a cutoff of <0.50 mcg/mL has a Negative Predictive Value of 99.7% for exclusion of DVT in low and moderate PTP patients. Interpretation and review of laboratory results Abnormal [facility] HEPATIC FUNCTION PANELon Albumin [Mass/Vol] 3.7 g/dL 3.5 - 5.0 g/dL [facility] ALP [Catalytic activity/Vol] 70 U/L 32 - 126 U/L [facility] ALT [Catalytic activity/Vol] 8 U/L Low 10 - 52 U/L [facility] AST [Catalytic activity/Vol] 21 U/L 10 - 39 U/L [facility] Bilirubin [Mass/Vol] 1.9 mg/dL High NINF - 1.5 mg/dL [facility] Bilirubin.direct [Mass/Vol] 0.4 mg/dL High NINF - 0.3 mg/dL [facility] Protein [Mass/Vol] 6.1 g/dL Low 6.4 - 8.3 g/dL [facility] MAGNESIUMon 01-16-2024 Magnesium [Mass/Vol] 1.7 mg/dL 1.6 - 2 .6 mg/dL [facility] No Panel Informationon 01-16 Interpretation and review of laboratory results Abnormal [facility] Interpretation and review of laboratory results Normal [facility] PHOSPHATE, INORGANICon 01-16 Phosphate [Mass/Vol] 4.1 mg/dL 2.2 - 4 .6 mg/dL [facility] PT,INR,PTTon 01-16-2024 aPTT Coag (PPP) [Time] 29.6 s [facility] INR Coag (Bld) [Relative time] 1.2 {INR} High 0.9 - 1.1 [facility] Interpretation and review of laboratory results Abnormal [facility] PT Coag (PPP) [Time] 14.9 s High [facility] TACROLIMUS LEVEL, TROUGH (ID E DRUG LEVEL)Ordered By: Jimy Castillo on 01-16-2024 Interpretation and review of laboratory results Normal [facility] Tacrolimus (Bld) [Mass/Vol] 5.7 ng/mL Bone Marrow Transplant: 4.0-12.0, Therapeutic: 5.0-15.0 [facility] Method performed is a chemiluminescent microparticle immunoasssay on the [employer] Trimmer i2000. The range is based on experience at [facility] and users should be aware that target concentrations vary widely depending on concomitant therapy, time post-transplant, and desired degree of immunosuppression. [facility] US.doppler Abdominal vessels on 01-16-2024 IMPRESSION: [...] 2023 TECHNIQUE: Multiple longitudinal and transverse real-time heatno scale survey images of the liver were [...] upper quadrant ascites. [facility] Radiology Study observation (narrative) [facility] US.doppler Abdominal vessels Ordered By: Iona Duran on 01-16-2024 [facility] Work Phone: XR Chest PA and Lateralon [...] right pleural effusion. [facility] Radiology Study observation (narrative) [facility] XR Chest PA and LateralOrder ed By: Daisha Patterson on 01-16-2024 [facility] Work Phone: ALL CBC WITH AUTO DIFFon BASOPHILS ABSOLUTE AUTO 0.0 [facility] Basophils/100 WBC (Bld) 0.5 % 0.2 - 2.0 % [facility] Eosinophils/100 WBC (Bld) 2.8 % [...] vol] 88.6 fL 80.0 - 94.0 fL [facility] MONOCYTES ABSOLUTE AUTO 0.5 [facility] Monocytes/100 WBC (Bld) 11.9 % 1.7 - 12.0 % [facility] NEUTROPHILS ABSOLUTE AUTO 1.9 [facility] Neutrophils/100 WBC (Bld) 47.0 % 43.0 - 75.0 % [facility] Platelet mean volume (Bld) [Entitic vol] 10.3 fL 9.5 - 13.5 fL [facility] TBH EO # 0.1 [facility] PLT 180 [facility] TB RBC 4.93 [facility] WBC 4.0 [facility] [...] vol] 9.8 fL 9.5 - 13.5 fL [facility] PLT 180 [facility] RBC 5.01 [facility] WBC 3.9 Low [facility] CHEM 7 (LYTES,BUN,CREA,GLUC) on 09-11-2023 Anion gap [Moles/Vol] 13 mmol/L 7 - 17 mmol/L [facility] Chloride [Moles/Vol] 111 mmol/L High 98 - 10 8 mmol/L [facility] CO2 [Moles/Vol] 20 mmol/L Low 21 - 31 mmol/L [facility] Creatinine [Mass/Vol] 1.13 mg/dL 0.70 - 1.30 mg/dL [facility] eGFR, CKD-EPI, Male 78 - PINF [facility] Glucose [Mass/Vol] 109 mg/dL High 70 - 99 mg/dL [facility] Interpretation and review of laboratory results Abnormal [facility] Osmolality Calc [Osmolality] 295 [facility] Potassium [Moles/Vol] 4.3 mmol/L 3.5 - 5.0 mmol/L [facility] Sodium [Moles/Vol] 140 mmol/L 135 - 145 mmol/L [facility] Urea nitrogen [Mass/Vol] 16 mg/dL 7 - 25 mg/dL [facility] Urea nitrogen/Creatinine [Mass ratio] 14 mg/mg [facility] GLUCOSE POCon 09-11-2023 Glucose [Mass/Vol] 108 mg/dL High 70 - 99 mg/dL [facility] Interpretation and review of laboratory results Abnormal [facility] POC Sample Type CAPBL [facility] Legionella sp identified Org specific cx Nom (Unsp spec)on 09-11-2023 Bacteria identified Cx Nom (Unsp spec) NO GROWTH DAY 7 OF 7 [facility] MAGNESIUMon 09-11-2023 Interpretation and review of laboratory results Normal [facility] Magnesium [Mass/Vol] 1.6 mg/dL 1.6 - 2 .6 mg/dL [facility] No Panel Informationon 09-11 [facility] TACROLIMUS LEVEL, TROUGH (ID E DRUG LEVEL)on 09-11-2023 Interpretation and review of laboratory results Normal [facility] Tacrolimus (Bld) [Mass/Vol] 11.5 ng/mL [facility] CBC,PLATELETSon 09-10-2023 Erythrocyte distribution width (RBC) [Ratio] 13.9 % 10.9 - 14.3 % [facility] Hematocrit (Bld) [Volume fraction] 40.0 % 39.6 - 48.8 % [facility] Hemoglobin (Bld) [Mass/Vol] 12.7 g/dL Low 13.4 - 16.8 g/dL [facility] Interpretation and review of laboratory results Abnormal [facility] MCH (RBC) [Entitic mass] 27.3 pg 26.1 - 33.3 pg [facility] MCHC (RBC) [Mass/Vol] 31.8 g/dL Low 31.9 - 36.5 g/dL [facility] MCV (RBC) [Entitic vol] 86.0 fL 79.0 - 94.5 fL [facility] Platelet mean volume (Bld) [Entitic vol] 9.5 fL 8.7 - 12.3 fL [facility] Platelets (Bld) [#/Vol] 225 10*3/uL 146 - 337 K/uL [facility] RBC (Bld) [#/Vol] 4.65 10*6/uL [facility] WBC (Bld) [#/Vol] 6.52 10*3/uL 3.73 - 10. 10 K/uL [facility] CHEM 7 (LYTES,BUN,CREA,GLUC) on 09-10-2023 Anion gap [Moles/Vol] 13 mmol/L 7 - 17 mmol/L [facility] Chloride [Moles/Vol] 111 mmol/L High 98 - 10 8 mmol/L [facility] CO2 [Moles/Vol] 20 mmol/L Low 21 - 31 mmol/L [facility] Creatinine [Mass/Vol] 1.27 mg/dL 0.70 - 1.30 mg/dL [facility] eGFR, CKD-EPI, Male 68 - PINF [facility] Glucose [Mass/Vol] 100 mg/dL High 70 - 99 mg/dL [facility] Osmolality Calc [Osmolality] 293 [facility] Potassium [Moles/Vol] 4.4 mmol/L 3.5 - 5.0 mmol/L [facility] Sodium [Moles/Vol] 140 mmol/L 135 - 145 mmol/L [facility] Urea nitrogen [Mass/Vol] 12 mg/dL 7 - 25 mg/dL [facility] Urea nitrogen/Creatinine [Mass ratio] 9 mg/mg [facility] HEPATIC FUNCTION PANELon Albumin [Mass/Vol] 3.3 g/dL Low 3.5 - 5.0 g/dL [facility] ALP [Catalytic activity/Vol] 143 U/L High 32 - 126 U/L [facility] ALT [Catalytic activity/Vol] 28 U/L 10 - 52 U/L [facility] AST [Catalytic activity/Vol] 29 U/L 10 - 39 U/L [facility] Bilirubin [Mass/Vol] 0.9 mg/dL NINF - 1.5 mg/dL [facility] Bilirubin.direct [Mass/Vol] 0.2 mg/dL NINF - 0.3 mg/dL [facility] Protein [Mass/Vol] 6.8 g/dL 6.4 - 8.3 g/dL [facility] MAGNESIUMon 09-10-2023 Interpretation and review of laboratory results Normal [facility] Magnesium [Mass/Vol] 1.9 mg/dL 1.6 - 2 .6 mg/dL [facility] No Panel Informationon 09-10 Interpretation and review of laboratory results Abnormal [facility] TACROLIMUS LEVEL, TROUGH (ID E DRUG LEVEL)Ordered By: Jimy Castillo on 09-10-2023 Interpretation and review of laboratory results Normal [facility] Tacrolimus (Bld) [Mass/Vol] 11.8 ng/mL [facility] CHEM 7 (LYTES,BUN,CREA,GLUC) on 09-09-2023 Anion gap [Moles/Vol] 14 mmol/L 7 - 17 mmol/L [facility] Chloride [Moles/Vol] 113 mmol/L High 98 - 10 8 mmol/L [facility] CO2 [Moles/Vol] 18 mmol/L Low 21 - 31 mmol/L [facility] Creatinine [Mass/Vol] 1.03 mg/dL 0.70 - 1.30 mg/dL [facility] eGFR, CKD-EPI, Male 87 - PINF [facility] Glucose [Mass/Vol] 106 mg/dL High 70 - 99 mg/dL [facility] Interpretation and review of laboratory results Abnormal [facility] Osmolality Calc [Osmolality] 294 [facility] Potassium [Moles/Vol] 4.0 mmol/L 3.5 - 5.0 mmol/L [facility] Sodium [Moles/Vol] 141 mmol/L 135 - 145 mmol/L [facility] Urea nitrogen [Mass/Vol] 10 mg/dL 7 - 25 mg/dL [facility] Urea nitrogen/Creatinine [Mass ratio] 10 mg/mg [facility] MAGNESIUMon 09-09-2023 Magnesium [Mass/Vol] 1.6 mg/dL 1.6 - 2 .6 mg/dL [facility] No Panel Informationon 09-09 Interpretation and review of laboratory results Normal [facility] PHOSPHATE, INORGANICon 09-09 Phosphate [Mass/Vol] 3.8 mg/dL 2.2 - 4 .6 mg/dL [facility] TACROLIMUS LEVEL, TROUGH (ID E DRUG LEVEL)on 09-09-2023 Interpretation and review of laboratory results Normal [facility] Tacrolimus (Bld) [Mass/Vol] 9.2 ng/mL [facility] CBC,PLATELETSon 09-08-2023 Erythrocyte distribution width (RBC) [Ratio] 13.6 % 10.9 - 14.3 % [facility] Hematocrit (Bld) [Volume fraction] 36.1 % Low 39.6 - 48.8 % [facility] Hemoglobin (Bld) [Mass/Vol] 11.6 g/dL Low 13.4 - 16.8 g/dL [facility] Interpretation and review of laboratory results Abnormal [facility] MCH (RBC) [Entitic mass] 27.4 pg 26.1 - 33.3 pg [facility] MCHC (RBC) [Mass/Vol] 32.1 g/dL 31.9 - 36.5 g/dL [facility] MCV (RBC) [Entitic vol] 85.1 fL 79.0 - 94.5 fL [facility] Platelet mean volume (Bld) [Entitic vol] 9.5 fL 8.7 - 12.3 fL [facility] Platelets (Bld) [#/Vol] 182 10*3/uL 146 - 337 K/uL [facility] RBC (Bld) [#/Vol] 4.24 10*6/uL Low [facility] WBC (Bld) [#/Vol] 4.59 10*3/uL 3.73 - 10. 10 K/uL [facility] CHEM 7 (LYTES,BUN,CREA,GLUC) on 09-08-2023 Anion gap [Moles/Vol] 12 mmol/L 7 - 17 mmol/L [facility] Chloride [Moles/Vol] 113 mmol/L High 98 - 10 8 mmol/L [facility] CO2 [Moles/Vol] 21 mmol/L 21 - 31 mmol/L [facility] Creatinine [Mass/Vol] 1.14 mg/dL 0.70 - 1.30 mg/dL [facility] eGFR, CKD-EPI, Male 77 - PINF [facility] Glucose [Mass/Vol] 107 mg/dL High 70 - 99 mg/dL [facility] Osmolality Calc [Osmolality] 296 [facility] Potassium [Moles/Vol] 3.9 mmol/L 3.5 - 5.0 mmol/L [facility] Sodium [Moles/Vol] 142 mmol/L 135 - 145 mmol/L [facility] Urea nitrogen [Mass/Vol] 11 mg/dL 7 - 25 mg/dL [facility] Urea nitrogen/Creatinine [Mass ratio] 10 mg/mg [facility] HEPATIC FUNCTION PANELon Albumin [Mass/Vol] 2.9 g/dL Low 3.5 - 5.0 g/dL [facility] ALP [Catalytic activity/Vol] 133 U/L High 32 - 126 U/L [facility] ALT [Catalytic activity/Vol] 23 U/L 10 - 52 U/L [facility] AST [Catalytic activity/Vol] 23 U/L 10 - 39 U/L [facility] Bilirubin [Mass/Vol] 0.8 mg/dL NINF - 1.5 mg/dL [facility] Bilirubin.direct [Mass/Vol] 0.2 mg/dL NINF - 0.3 mg/dL [facility] Protein [Mass/Vol] 5.9 g/dL Low 6.4 - 8.3 g/dL [facility] MAGNESIUMon 09-08-2023 Interpretation and review of laboratory results Normal [facility] Magnesium [Mass/Vol] 1.8 mg/dL 1.6 - 2 .6 mg/dL [facility] No Panel Informationon 09-08 Interpretation and review of laboratory results Abnormal [facility] PHOSPHATE, INORGANICon 09-08 Interpretation and review of laboratory results Normal [facility] Phosphate [Mass/Vol] 4.1 mg/dL 2.2 - 4 .6 mg/dL [facility] TACROLIMUS LEVEL, TROUGH (ID E DRUG LEVEL)on 09-08-2023 Interpretation and review of laboratory results Normal [facility] Tacrolimus (Bld) [Mass/Vol] 8.5 ng/mL [facility] CBC,PLATELETSon 09-07-2023 Erythrocyte distribution width (RBC) [Ratio] 13.5 % 10.9 - 14.3 % [facility] Hematocrit (Bld) [Volume fraction] 37.1 % Low 39.6 - 48.8 % [facility] Hemoglobin (Bld) [Mass/Vol] 11.9 g/dL Low 13.4 - 16.8 g/dL [facility] Interpretation and review of laboratory results Abnormal [facility] MCH (RBC) [Entitic mass] 27.7 pg 26.1 - 33.3 pg [facility] MCHC (RBC) [Mass/Vol] 32.1 g/dL 31.9 - 36.5 g/dL [facility] MCV (RBC) [Entitic vol] 86.5 fL 79.0 - 94.5 fL [facility] Platelet mean volume (Bld) [Entitic vol] 9.6 fL 8.7 - 12.3 fL [facility] Platelets (Bld) [#/Vol] 176 10*3/uL 146 - 337 K/uL [facility] RBC (Bld) [#/Vol] 4.29 10*6/uL Low [facility] WBC (Bld) [#/Vol] 4.10 10*3/uL 3.73 - 10. 10 K/uL [facility] CHEM 7 (LYTES,BUN,CREA,GLUC) on 09-07-2023 Anion gap [Moles/Vol] 13 mmol/L 7 - 17 mmol/L [facility] Chloride [Moles/Vol] 113 mmol/L High 98 - 10 8 mmol/L [facility] CO2 [Moles/Vol] 19 mmol/L Low 21 - 31 mmol/L [facility] Creatinine [Mass/Vol] 1.22 mg/dL 0.70 - 1.30 mg/dL [facility] eGFR, CKD-EPI, Male 71 - PINF [facility] Glucose [Mass/Vol] 107 mg/dL High 70 - 99 mg/dL [facility] Osmolality Calc [Osmolality] 295 [facility] Potassium [Moles/Vol] 3.9 mmol/L 3.5 - 5.0 mmol/L [facility] Sodium [Moles/Vol] 141 mmol/L 135 - 145 mmol/L [facility] Urea nitrogen [Mass/Vol] 13 mg/dL 7 - 25 mg/dL [facility] Urea nitrogen/Creatinine [Mass ratio] 11 mg/mg [facility] HEPATIC FUNCTION PANELon Albumin [Mass/Vol] 2.9 g/dL Low 3.5 - 5.0 g/dL [facility] ALP [Catalytic activity/Vol] 111 U/L 32 - 126 U/L [facility] ALT [Catalytic activity/Vol] 18 U/L 10 - 52 U/L [facility] AST [Catalytic activity/Vol] 23 U/L 10 - 39 U/L [facility] Bilirubin [Mass/Vol] 0.8 mg/dL NINF - 1.5 mg/dL [facility] Bilirubin.direct [Mass/Vol] 0.3 mg/dL High NINF - 0.3 mg/dL [facility] Protein [Mass/Vol] 6.0 g/dL Low 6.4 - 8.3 g/dL [facility] MAGNESIUMon 09-07-2023 Interpretation and review of laboratory results Normal [facility] Magnesium [Mass/Vol] 1.7 mg/dL 1.6 - 2 .6 mg/dL [facility] No Panel Informationon 09-07 Interpretation and review of laboratory results Abnormal [facility] PHOSPHATE, INORGANICon 09-07 Interpretation and review of laboratory results Normal [facility] Phosphate [Mass/Vol] 4.4 mg/dL 2.2 - 4 .6 mg/dL [facility] TACROLIMUS LEVEL, TROUGH (ID E DRUG LEVEL)Ordered By: Elizabeth Maldonado on 09-07-2023 Interpretation and review of laboratory results Normal [facility] Tacrolimus (Bld) [Mass/Vol] 7.8 ng/mL [facility] CBC,PLATELETSon 09-06-2023 Erythrocyte distribution width (RBC) [Ratio] 13.4 % 10.9 - 14.3 % [facility] Hematocrit (Bld) [Volume fraction] 38.4 % Low 39.6 - 48.8 % [facility] Hemoglobin (Bld) [Mass/Vol] 11.9 g/dL Low 13.4 - 16.8 g/dL [facility] Interpretation and review of laboratory results Abnormal [facility] MCH (RBC) [Entitic mass] 26.6 pg 26.1 - 33.3 pg [facility] MCHC (RBC) [Mass/Vol] 31.0 g/dL Low 31.9 - 36.5 g/dL [facility] MCV (RBC) [Entitic vol] 85.9 fL 79.0 - 94.5 fL [facility] Platelet mean volume (Bld) [Entitic vol] 9.7 fL 8.7 - 12.3 fL [facility] Platelets (Bld) [#/Vol] 181 10*3/uL 146 - 337 K/uL [facility] RBC (Bld) [#/Vol] 4.47 10*6/uL [facility] WBC (Bld) [#/Vol] 4.41 10*3/uL 3.73 - 10. 10 K/uL [facility] CHEM 7 (LYTES,BUN,CREA,GLUC) on 09-06-2023 Anion gap [Moles/Vol] 14 mmol/L 7 - 17 mmol/L [facility] Chloride [Moles/Vol] 109 mmol/L High 98 - 10 8 mmol/L [facility] CO2 [Moles/Vol] 19 mmol/L Low 21 - 31 mmol/L [facility] Creatinine [Mass/Vol] 1.26 mg/dL 0.70 - 1.30 mg/dL [facility] eGFR, CKD-EPI, Male 70 - PINF [facility] Glucose [Mass/Vol] 114 mg/dL High 70 - 99 mg/dL [facility] Osmolality Calc [Osmolality] 291 [facility] Potassium [Moles/Vol] 4.1 mmol/L 3.5 - 5.0 mmol/L [facility] Sodium [Moles/Vol] 138 mmol/L 135 - 145 mmol/L [facility] Urea nitrogen [Mass/Vol] 16 mg/dL 7 - 25 mg/dL [facility] Urea nitrogen/Creatinine [Mass ratio] 13 mg/mg [facility] HEPATIC FUNCTION PANELon Albumin [Mass/Vol] 3.0 g/dL Low 3.5 - 5.0 g/dL [facility] ALP [Catalytic activity/Vol] 115 U/L 32 - 126 U/L [facility] ALT [Catalytic activity/Vol] 25 U/L 10 - 52 U/L [facility] AST [Catalytic activity/Vol] 31 U/L 10 - 39 U/L [facility] Bilirubin [Mass/Vol] 1.0 mg/dL [facility] - 1.5 mg/dL [facility] Bilirubin.direct [Mass/Vol] 0.3 mg/dL High NINF - 0.3 mg/dL [facility] Protein [Mass/Vol] 6.3 g/dL Low 6.4 - 8.3 g/dL [facility] MAGNESIUMon 09-06-2023 Interpretation and review of laboratory results Normal [facility] Magnesium [Mass/Vol] 2.0 mg/dL 1.6 - 2 .6 mg/dL [facility] No Panel Informationon 09-06 Interpretation and review of laboratory results Abnormal [facility] TACROLIMUS LEVEL, TROUGH (ID E DRUG LEVEL)on 09-06-2023 Interpretation and review of laboratory results Normal [facility] Tacrolimus (Bld) [Mass/Vol] 6.7 ng/mL [facility] CBC,PLATELETSon 09-05-2023 Erythrocyte distribution width (RBC) [Ratio] 13.5 % 10.9 - 14.3 % [facility] Hematocrit (Bld) [Volume fraction] 35.6 % Low 39.6 - 48.8 % [facility] Hemoglobin (Bld) [Mass/Vol] 11.4 g/dL Low 13.4 - 16.8 g/dL [facility] Interpretation and review of laboratory results Abnormal [facility] MCH (RBC) [Entitic mass] 27.5 pg 26.1 - 33.3 pg [facility] MCHC (RBC) [Mass/Vol] 32.0 g/dL 31.9 - 36.5 g/dL [facility] MCV (RBC) [Entitic vol] 86.0 fL 79.0 - 94.5 fL [facility] Platelet mean volume (Bld) [Entitic vol] 10.0 fL 8.7 - 12.3 fL [facility] Platelets (Bld) [#/Vol] 170 10*3/uL 146 - 337 K/uL [facility] RBC (Bld) [#/Vol] 4.14 10*6/uL Low [facility] WBC (Bld) [#/Vol] 4.24 10*3/uL 3.73 - 10. 10 K/uL [facility] CHEM 7 (LYTES,BUN,CREA,GLUC) on 09-05-2023 Anion gap [Moles/Vol] 12 mmol/L 7 - 17 mmol/L [facility] Chloride [Moles/Vol] 107 mmol/L 98 - 10 8 mmol/L [facility] CO2 [Moles/Vol] 20 mmol/L Low 21 - 31 mmol/L [facility] Creatinine [Mass/Vol] 1.43 mg/dL High 0.70 - 1.30 mg/dL [facility] eGFR, CKD-EPI, Male 60 Low - PINF [facility] Glucose [Mass/Vol] 111 mg/dL High 70 - 99 mg/dL [facility] Osmolality Calc [Osmolality] 286 [facility] Potassium [Moles/Vol] 4.2 mmol/L 3.5 - 5.0 mmol/L [facility] Sodium [Moles/Vol] 135 mmol/L 135 - 145 mmol/L [facility] Urea nitrogen [Mass/Vol] 18 mg/dL 7 - 25 mg/dL [facility] Urea nitrogen/Creatinine [Mass ratio] 13 mg/mg [facility] CONTINUOUS CARDIAC MONITORIN G STRIPon 09-05-2023 [facility] HEPATIC FUNCTION PANELon Albumin [Mass/Vol] 2.8 g/dL Low 3.5 - 5.0 g/dL [facility] ALP [Catalytic activity/Vol] 103 U/L 32 - 126 U/L [facility] ALT [Catalytic activity/Vol] 26 U/L 10 - 52 U/L [facility] AST [Catalytic activity/Vol] 38 U/L 10 - 39 U/L [facility] Bilirubin [Mass/Vol] 0.9 mg/dL NINF - 1.5 mg/dL [facility] Bilirubin.direct [Mass/Vol] 0.1 mg/dL NINF - 0.3 mg/dL [facility] Protein [Mass/Vol] 6.1 g/dL Low 6.4 - 8.3 g/dL [facility] HISTOPLASMA ANTIGEN, FLUIDon 09-05-2023 FH SOURCE BAL RML [facility] Histo FLD interpretation Negative [facility] Histoplasma Antigen, FLUID Not detected ng/mL [facility] HISTOPLASMA CAPSULATUM/BLAST OMYCES SPECIES,PCR FLUIDon 09-05-2023 HISTO/BLASTO RESULT Negative Not Applicable [facility] Specimen source Nom (Unsp spec) BAL RML [facility] IMMUNOPHENOTYPING, TISSUE/FL UIDon 09-05-2023 BKR DX CODE Use Ordering [facility] Flow Interpretation See Comment [facility] Flow Interpreted by: Yossi Perla MD, PhD [facility] MAGNESIUMon 09-05-2023 Interpretation and review of laboratory results Normal [facility] Magnesium [Mass/Vol] 1.7 mg/dL 1.6 - 2 .6 mg/dL [facility] No Panel Informationon 09-05 Interpretation and review of laboratory results Abnormal [facility] TACROLIMUS LEVEL, TROUGH (ID E DRUG LEVEL)Ordered By: Raymundo Mehta on 09-05-2023 Interpretation and review of laboratory results Normal [facility] Tacrolimus (Bld) [Mass/Vol] 5.3 ng/mL [facility] ARTERIAL BLOOD GAS (FULL GOSS EL)on 09-04-2023 Base excess Calc (Bld) [Moles/Vol] -1.2000 mmol/L -3.0 - 3.0 mmol/L [facility] Calcium.ionized (Bld) [Mass/Vol] 4.79 mg/dL 4.60 - 5.30 mg/dL [facility] Carboxyhemoglobin (Bld) [Mass fraction] 0.7 % NINF - 1.5 % [facility] CO2 (Bld) [Partial pressure] 30 mm[Hg] Low [facility] Glucose [Mass/Vol] 159 mg/dL High 70 - 99 mg/dL [facility] HCO3 (Bld) [Moles/Vol] 22 mmol/L 22 - 28 mmol/L [facility] Hematocrit (Bld) [Volume fraction] 38.0 % Low 40.2 - 50.4 % [facility] Hemoglobin (Bld) [Mass/Vol] 12.6 g/dL Low 13.4 - 16.8 g/dL [facility] Interpretation and review of laboratory results Abnormal [facility] Lactate [Moles/Vol] 2.0 mmol/L High 0.5 - 1. 6 mmol/L [facility] Methemoglobin (Bld) [Mass fraction] 0.0 % NINF - 1.5 % [facility] Oxygen (Bld) [Partial pressure] 62 mm[Hg] Low [facility] Oxygen saturation in Blood 92 % Low 94 - 98 % [facility] Oxyhemoglobin 91 % Low 94 - 98 % [facility] pH (Bld) 7.48 [pH] High 7.35 - 7.45 [facility] Potassium [Moles/Vol] 4.2 mmol/L 3.5 - 5.0 mmol/L [facility] Sodium [Moles/Vol] 130 mmol/L Low 135 - 145 mmol/L [facility] Specimen source Nom (Unsp spec) Arterial [facility] Bacteria identified Respirat ory culture Nom (Unsp spec)on 09-04-2023 Bacteria identified Cx Nom (Unsp spec) NO GROWTH DAY 2 OF 2 [facility] Microscopic observation Other stain Nom (Unsp spec) Cytocentrifuge preparation [facility] Microscopic observation Other stain Nom (Unsp spec) Neutrophils, Rare [facility] Microscopic observation Other stain Nom (Unsp spec) Red Blood Cells Present [facility] Microscopic observation Other stain Nom (Unsp spec) No organisms seen [facility] Bacteria identified Respirat ory culture Nom (Unsp spec)Ordered By: Jose Salgado on 09-04-2023 Bacteria identified Cx Nom (Unsp spec) NO GROWTH DAY 2 OF 2 [facility] Microscopic observation Other stain Nom (Unsp spec) Cytocentrifuge preparation [facility] Microscopic observation Other stain Nom (Unsp spec) Neutrophils, Moderate [facility] Microscopic observation Other stain Nom (Unsp spec) Red Blood Cells Present [facility] Microscopic observation Other stain Nom (Unsp spec) No organisms seen [facility] CBC,PLATELETSon 09-04-2023 Erythrocyte distribution width (RBC) [Ratio] 13.2 % 10.9 - 14.3 % [facility] Hematocrit (Bld) [Volume fraction] 38.7 % Low 39.6 - 48.8 % [facility] Hemoglobin (Bld) [Mass/Vol] 12.3 g/dL Low 13.4 - 16.8 g/dL [facility] Interpretation and review of laboratory results Abnormal [facility] MCH (RBC) [Entitic mass] 27.9 pg 26.1 - 33.3 pg [facility] MCHC (RBC) [Mass/Vol] 31.8 g/dL Low 31.9 - 36.5 g/dL [facility] MCV (RBC) [Entitic vol] 87.8 fL 79.0 - 94.5 fL [facility] Platelet mean volume (Bld) [Entitic vol] 9.8 fL 8.7 - 12.3 fL [facility] Platelets (Bld) [#/Vol] 173 10*3/uL 146 - 337 K/uL [facility] RBC (Bld) [#/Vol] 4.41 10*6/uL [facility] WBC (Bld) [#/Vol] 4.57 10*3/uL 3.73 - 10. 10 K/uL [facility] CHEM 7 (LYTES,BUN,CREA,GLUC) on 09-04-2023 Anion gap [Moles/Vol] 16 mmol/L 7 - 17 mmol/L [facility] Chloride [Moles/Vol] 104 mmol/L 98 - 10 8 mmol/L [facility] CO2 [Moles/Vol] 18 mmol/L Low 21 - 31 mmol/L [facility] Creatinine [Mass/Vol] 1.22 mg/dL 0.70 - 1.30 mg/dL [facility] eGFR, CKD-EPI, Male 71 - PINF [facility] Glucose [Mass/Vol] 124 mg/dL High 70 - 99 mg/dL [facility] Osmolality Calc [Osmolality] 284 [facility] Potassium [Moles/Vol] 3.9 mmol/L 3.5 - 5.0 mmol/L [facility] Sodium [Moles/Vol] 134 mmol/L Low 135 - 145 mmol/L [facility] Urea nitrogen [Mass/Vol] 15 mg/dL 7 - 25 mg/dL [facility] Urea nitrogen/Creatinine [Mass ratio] 12 mg/mg [facility] CMV PCR,FLUIDS,URINE,EYE ETC on 09-04-2023 Specimen source Nom (Unsp spec) BAL LLL [facility] Specimen source Nom (Unsp spec) BAL RML [facility] HEPATIC FUNCTION PANELon Albumin [Mass/Vol] 3.0 g/dL Low 3.5 - 5.0 g/dL [facility] ALP [Catalytic activity/Vol] 112 U/L 32 - 126 U/L [facility] ALT [Catalytic activity/Vol] 22 U/L 10 - 52 U/L [facility] AST [Catalytic activity/Vol] 30 U/L 10 - 39 U/L [facility] Bilirubin [Mass/Vol] 1.2 mg/dL NINF - 1.5 mg/dL [facility] Bilirubin.direct [Mass/Vol] 0.4 mg/dL High NINF - 0.3 mg/dL [facility] Protein [Mass/Vol] 6.4 g/dL 6.4 - 8.3 g/dL [facility] LEGIONELLA PCRon 09-04-2023 Legionella sp rRNA Probe Ql (Unsp spec) Negative Not Applicable [facility] Specimen source Nom (Unsp spec) BAL RML [facility] Laboratory - Microbiology an d Antimicrobial susceptibilityon 09-04-2023 CMV DNA ESTELITA+probe Ql (Unsp spec) Negative Negative [facility] MAGNESIUMon 09-04-2023 Magnesium [Mass/Vol] 1.4 mg/dL Low 1.6 - 2 .6 mg/dL [facility] No Panel Informationon 09-04 Annotation comment [Interpretation] Narrative DNR [facility] PN Report Status DNR [facility] Pneumocystis jiroveci,PCR result Negative Not Applicable [facility] Interpretation and review of laboratory results Abnormal [facility] PNEUMOCYSTIS JIROVECI,PCRon 09-04-2023 Specimen source Nom (Unsp spec) BAL LLL [facility] Specimen source Nom (Unsp spec) BAL RML [facility] Portable XR Chest Viewson RADIOLOGY RADIOLOGY [facility] Radiology Study observation (narrative) [facility] Portable XR Chest ViewsOrder ed By: Joanie Nugent on 09-04-2023 [facility] Work Phone: TACROLIMUS LEVEL, TROUGH (ID E DRUG LEVEL)on 09-04-2023 Interpretation and review of laboratory results Abnormal [facility] Tacrolimus (Bld) [Mass/Vol] 3.6 ng/mL Low [facility] ASPERGILLUS ANTIGEN, BALon 1 Galactomannan Ag IA Qn (Unsp spec) <0.500 [facility] Galactomannan Ag IA Qn (Unsp spec) <0.500 [facility] BAL CONSULTOrdered By: Noa Peralta on 09-03-2023 ALVEOLAR MACROPHAGES 32 % [facility] Work Phone: Bal comments Correlation with microbiology stains and cultures is recommended. [facility] Work Phone: Bal Diff Quik Stain Quality Check Acceptable [facility] Work Phone: BKR BAL INTERPRETATION Cellular specimen comprised of alveolar macrophages and small lymphocytes. No definitive microorganisms are observed. Moderate degenerative changes. [facility] Work Phone: BKR DX CODE Use Ordering [facility] Work Phone: Eosinophils Patterson stain Ql (Unsp spec) 0 % [facility] Work Phone: Lymphocytes/100 WBC (Bld) 57 % [facility] Work Phone: Neutrophils/100 WBC Manual cnt (Bronch spec) 11 % [facility] Work Phone: Pathologist review Jame (Unsp spec) [Interp] Leonardo Peralta MD [facility] Work Phone: [facility] Work Phone: BAL CONSULTon 09-03-2023 ALVEOLAR MACROPHAGES 33 % [facility] Bal comments Correlation with microbiology stains and cultures is recommended. Correlation with viral studies is recommended. [facility] Bal Diff Quik Stain Quality Check Acceptable [facility] BKR BAL INTERPRETATION Cellular specimen comprised of alveolar macrophages and small lymphocytes. No definitive microorganisms are observed. Rare degenerating cells with changes suggestive of viral cytopathic effect are noted. Moderate degenerative changes. [facility] BKR DX CODE Use Ordering [facility] Eosinophils Patterson stain Ql (Unsp spec) 0 % [facility] Lymphocytes/100 WBC (Bld) 49 % [facility] Neutrophils/100 WBC Manual cnt (Bronch spec) 18 % [facility] Pathologist review Jame (Unsp spec) [Interp] Leonardo Peralta MD [facility] BRONCHOSCOPYon 09-03-2023 LAB, [facility] CBC,PLATELETSon 09-03-2023 Erythrocyte distribution width (RBC) [Ratio] 13.4 % 10.9 - 14.3 % [facility] Hematocrit (Bld) [Volume fraction] 39.6 % 39.6 - 48.8 % [facility] Hemoglobin (Bld) [Mass/Vol] 12.8 g/dL Low 13.4 - 16.8 g/dL [facility] Interpretation and review of laboratory results Abnormal [facility] MCH (RBC) [Entitic mass] 27.8 pg 26.1 - 33.3 pg [facility] MCHC (RBC) [Mass/Vol] 32.3 g/dL 31.9 - 36.5 g/dL [facility] MCV (RBC) [Entitic vol] 85.9 fL 79.0 - 94.5 fL [facility] Platelet mean volume (Bld) [Entitic vol] 9.4 fL 8.7 - 12.3 fL [facility] Platelets (Bld) [#/Vol] 222 10*3/uL 146 - 337 K/uL [facility] RBC (Bld) [#/Vol] 4.61 10*6/uL [facility] WBC (Bld) [#/Vol] 4.36 10*3/uL 3.73 - 10. 10 K/uL [facility] CHEM 7 (LYTES,BUN,CREA,GLUC) on 09-03-2023 Anion gap [Moles/Vol] 12 mmol/L 7 - 17 mmol/L [facility] Chloride [Moles/Vol] 104 mmol/L 98 - 10 8 mmol/L [facility] CO2 [Moles/Vol] 24 mmol/L 21 - 31 mmol/L [facility] Creatinine [Mass/Vol] 1.20 mg/dL 0.70 - 1.30 mg/dL [facility] eGFR, CKD-EPI, Male 74 - PINF [facility] Glucose [Mass/Vol] 112 mg/dL High 70 - 99 mg/dL [facility] Osmolality Calc [Osmolality] 288 [facility] Potassium [Moles/Vol] 4.1 mmol/L 3.5 - 5.0 mmol/L [facility] Sodium [Moles/Vol] 136 mmol/L 135 - 145 mmol/L [facility] Urea nitrogen [Mass/Vol] 17 mg/dL 7 - 25 mg/dL [facility] Urea nitrogen/Creatinine [Mass ratio] 14 mg/mg [facility] CYTOLOGY, NON-GYNOrdered By: Sherice Jimenez on 09-03-2023 CYTOLOGIC DIAGNOSIS o1szvGJpTBManFYqPMSjE5hpyvE tAGUlvLEuO2ZxcakgXNhtXQ2yUH 5skRqkrOJoiDAjUAFwDlGir3zjv 490yMUla3ntVKCZxcwjtUv2r3ah XWPLpQ9kq1q4wT60PQTsmS1yjGJ sOMqpduNcAAxztxQphxIwYzi0FV U1kHztUmorzTE7zTQgwOE8BCsdc 2IvtDlppLkwSTO1QIUfLtmyAYcb pPH7yUBcjMiuvDGlWC9rl2vgfBZ 9baRkMAM1rCuqpVX6hTkwdlgdj8 lwcME7nFH7NBkrcSX8BFyoKhYqH 3cnAYDljN3lM45aY2wiAGBsyThi GGmePBOxxUK2EVB8HTKvm7tgCLR hrPHywCOiRyTpGUphTuc4s5ppQI GdjK31iNFqouE3gKwyZRsrsWR4B V86TJhrc6ImOXDbuJweMFWkxF5x YzIzXGxldmVsbmZjbjIzXGxldmV qzaJrICcvjrIsk8RpnoDziRL4GP pfamQhdJP2lBxdVHLiG1W2V656M BqeytJaesEuUhYrqnt9GWIatFpn bGlzdGxldmVsXGxldmVsbmZjMjN jtEN7WHdnJgHiXeIpgMY3OCfhZc LlnXT1NErjcUNavSP7XEqsaPE5E Na2OWd7FJbgTCpgJaq8lFbyqKJ9 ZRtffC8eSYKzF99iCrG2g9eezEC 0gQT8PSbrmCG2CEtzJlCbP9bzJL VzcO6iI61hA7bzDHCpiNmeYKsdF KDfwOU9GVJ9QKSic3ngZOBnnGBm oAVkUnCxJAoeBwy7b9ucPEUceJ1 0kEKvhfA8xCeiTG45UNwxk7DpOS EouRnfMLIzsX6iItQzNJvecdVlw mZjbjIzXGxldmVsamMwXGxldmVs c5EitbNlzBZ3PPpxysIriHA3dCp tBZRiZ2J3Y570ZFbdxdYiweBlXw Oywcv7XXKoiXwnjMtktGsmvfJrE NbgmzRamzHwLaEmqXD7GNfnZtUk CrGfaFO6WKneSaJzuPH7BAtgoII pnPP3AFoclDT3MIe4OJa7WKxnYJ ntOps9vYbjiXD4CZekcW0wOUKqE 06uVlN6s6sszRQ6zVL5GSadcLT8 ZUbdJeGkT0neJNXwoQ9xD60lK4c iIMTquHsuDEsmQBQpsVT0NUD3WQ Zqv6osQOGkiHBnkZUoPdOtENqqE wd1v3ykYXVmfQ73mNKiypJ5xCee FX46TJjwk9OpOSPawTzzQVXomW2 mYzIzXGxldmVsbmZjbjIzXGxldm NldwRlFEvflnWpj3WqknAmwPJ2A EnzuyEsfIF7oEnzWBZiW7A5R053 WUnaavBlwuNkGfPrceh7YRFvmPj cbGlzdGxldmVsXGxldmVsbmZjMj NukQX8ORiuBhDaZfJosQN9MNxmP dHllWF3IVsjcXQkoXV0JYozqQF3 GNc4IKx3MEadSWksWee4nGonlHB 6FAvqaK0gAHDoK23bDsG9uA54CZ tqxIbqjS62TNKghYKffPQvmTP6C WtmaDxnbA89TSQupIWoBMehm9Ng RZDdQzC8YAG7PGLacTsqbT39HLQ hcFUhC408vgVwJMtyGC96JWTncA IcxrPsMkHjBCEwgZOaiVN3XNTsJ X8qlhjrZUfpCJmoUCYyhdI8RUMn oPVvK8TxOFHpHF1ieghiRGS9JGn pSZXzQOT2TrEuQFQtl9Nudgu2Pc CffMh0v2qdNICrBNDlyJwns3vsB AB3CFEhxDXzH3hffJ9yZVDhTN9m tfmzq9hvGJemKHmeWLBntNM6urG 0AGClxRZuS0IozC6dJINhZHElhx VpeSxbjE8bGmolojQrDWEpBPWNL yAAZv2CA3mNBRfGTB0RPPHjKIJC BYmSEZUPCDWGJHiRA4FSKKoNPjI eALWtXBFaC5pWB2bGD9jkKdjyVx BoJHvnPVFcDuVkV9IdVKMgboixE YBhJYXWBU7IUKGUFVVZBa5GPLJ3 YYPlblqhnWT1VOgonlIiiHv4eTZ myTcmgV4oYvogyxPuSOPzLFXMhz RFZYnnX40xwwJnW2HuiKYaYUEwV CxoWS62wZZuJZUkgEPzYYp0uF2j UIglgHneqkQRkIJtwM7yfhiuMUg jZjBccGFyXGxpMFxsczBccGFyfQ == [facility] Work Phone: Case Report [facility] Work Phone: Clinical History h4iceFXnYKTymGNuYMPf O3fvclP hEFMgsLXeQ2AwongpJOacKS7sLS 8taMnabFElqLGoYFJkHvMte8bjd 723xBXvc5ytUPMZdebxjKp5yKmj U06wx2C3XqvtS0nrJOFoBJqwVQD xRRsgsIPlXKt9DMNceVMjkrGpIz LlOFPhgPHklQT8QTGmTS9ljwmfC OkwWYzqSGKazvX0TSUovLWgY0Gm TFZnPT6gfpofXQN2ZCbeVPQcQGE 4WpOrSUCxc7Ogcvm6McNxdMg3v9 lvUCSsTLGdqRvhj8ovCYK0FXUup MJlX4uaqK1aHKRnGY8ejuvdw1wg WPzbIVnxGZMtjOS4uzL6HWPizPP kX8PqkC2fKSDnGNOkhjUfcRjftA 5cZnMyMFxjZjEgUmVuYWwgdHJhb eQisNQstF6pHHFxjg5= [facility] Work Phone: For Immediate Release to Patient's MyChart? Yes Yes [facility] Work Phone: Gross Description f2bliXOjRMTleFNiLYHj U5ijejW mPEVnoUFfK1DmywohZSflIT7rVX 7tpTatmQWklAWeICBbTjDei9cnn 128lIZob5zpKNLVhssdaHc6kAwt D01xq7W6KczvQ93uaJYcYHM0UBB nEVUgvLEjTKPpCEO1JRDprRXoH6 ysVPSaDT4pzvbdRTszBHbaOPHkq HE0IERubSBkU3KyNWXsBPcuKUKz udy8LjMuWf7yvGCogBtjIUbtGEX kXHBsYWluXGZzMjAgTExMIEJBTF suQJZcIJJslVJsQNw5WBPnsS5ka ZZhsnPpjOIsrB6imVblNQxfFOGj XCIUEXPucWpgCLLXJFBmq8EzlP3 ccGFyXHBhcmRccGFyXHBhcn0= [facility]: [facility] Work Phone: HEPATIC FUNCTION PANELon Albumin [Mass/Vol] 3.2 g/dL Low 3.5 - 5.0 g/dL [facility] ALP [Catalytic activity/Vol] 118 U/L 32 - 126 U/L [facility] ALT [Catalytic activity/Vol] 25 U/L 10 - 52 U/L [facility] AST [Catalytic activity/Vol] 32 U/L 10 - 39 U/L [facility] Bilirubin [Mass/Vol] 1.0 mg/dL NINF - 1.5 mg/dL [facility] Bilirubin.direct [Mass/Vol] 0.3 mg/dL High NINF - 0.3 mg/dL [facility] Protein [Mass/Vol] 6.5 g/dL 6.4 - 8.3 g/dL [facility] HISTOPLASMA AND BLASTOMYCES ANTIGEN, ENZYME IMMUNOASSAY, SERMon 09-03-2023 Histoplasma/Blastomy antonia Ag Result Detected Critically abnormal Not Detected [facility] Histoplasma/Blastomy antonia Ag Value 5.3 ng/mL [facility] Interpretation and review of laboratory results Abnormal [facility] MAGNESIUMon 09-03-2023 Interpretation and review of laboratory results Normal [facility] Magnesium [Mass/Vol] 1.6 mg/dL 1.6 - 2 .6 mg/dL [facility] No Panel Informationon 09-03 Interpretation and review of laboratory results Abnormal [facility] PARVOVIRUS (B19) DNA, PCR, B LOODon 09-03-2023 PARVOVIRUS B19 BY RAPID PCR Not detected Not Detected [facility] ID SPEC SOURCE Whole Blood [facility] Portable XR Chest Viewson RADIOLOGY RADIOLOGY [facility] Radiology Study observation (narrative) [facility] Portable XR Chest ViewsOrder ed By: Lester Grove on 09-03-2023 [facility] Work Phone: ASPERGILLUS (GALACTOMANNAN), ANTIGENon 09-02-2023 Galactomannan Ag IA Qn <0.500 NINF [facility] ATYPICAL BACTERIAL PNEUMONIA ,PCROrdered By: Shari Contreras on 09-02-2023 B. parapertussis DNA ESTELITA+probe Ql (Unsp spec) Not detected Not Detected [facility] B. pertussis DNA ESTELITA+probe Ql (Unsp spec) Not detected Not Detected [facility] C. pneumoniae DNA ESTELITA+probe Ql (Unsp spec) Not detected Not Detected [facility] Interpretation and review of laboratory results Normal [facility] M. pneumoniae DNA ESTELITA+probe Ql (Unsp spec) Not detected Not Detected [facility] BRONCHOSCOPYon 09-02-2023 Radiology Study observation (narrative) [facility] Bacteria identified Cx Nom ( Bld)on 09-02-2023 Bacteria identified Cx Nom (Unsp spec) NO GROWTH DAY 5 OF 5 [facility] CBC,PLATELETSon 09-02-2023 Erythrocyte distribution width (RBC) [Ratio] 13.2 % 10.9 - 14.3 % [facility] Hematocrit (Bld) [Volume fraction] 39.9 % 39.6 - 48.8 % [facility] Hemoglobin (Bld) [Mass/Vol] 12.9 g/dL Low 13.4 - 16.8 g/dL [facility] Interpretation and review of laboratory results Abnormal [facility] MCH (RBC) [Entitic mass] 27.9 pg 26.1 - 33.3 pg [facility] MCHC (RBC) [Mass/Vol] 32.3 g/dL 31.9 - 36.5 g/dL [facility] MCV (RBC) [Entitic vol] 86.4 fL 79.0 - 94.5 fL [facility] Platelet mean volume (Bld) [Entitic vol] 9.5 fL 8.7 - 12.3 fL [facility] Platelets (Bld) [#/Vol] 210 10*3/uL 146 - 337 K/uL [facility] RBC (Bld) [#/Vol] 4.62 10*6/uL [facility] WBC (Bld) [#/Vol] 4.12 10*3/uL 3.73 - 10. 10 K/uL [facility] CHEM 7 (LYTES,BUN,CREA,GLUC) on 09-02-2023 Anion gap [Moles/Vol] 13 mmol/L 7 - 17 mmol/L [facility] Chloride [Moles/Vol] 105 mmol/L 98 - 10 8 mmol/L [facility] CO2 [Moles/Vol] 22 mmol/L 21 - 31 mmol/L [facility] Creatinine [Mass/Vol] 1.25 mg/dL 0.70 - 1.30 mg/dL [facility] eGFR, CKD-EPI, Male 70 - PINF [facility] Glucose [Mass/Vol] 105 mg/dL High 70 - 99 mg/dL [facility] Osmolality Calc [Osmolality] 287 [facility] Potassium [Moles/Vol] 4.3 mmol/L 3.5 - 5.0 mmol/L [facility] Sodium [Moles/Vol] 136 mmol/L 135 - 145 mmol/L [facility] Urea nitrogen [Mass/Vol] 16 mg/dL 7 - 25 mg/dL [facility] Urea nitrogen/Creatinine [Mass ratio] 13 mg/mg [facility] HEPATIC FUNCTION PANELon Albumin [Mass/Vol] 3.2 g/dL Low 3.5 - 5.0 g/dL [facility] ALP [Catalytic activity/Vol] 107 U/L 32 - 126 U/L [facility] ALT [Catalytic activity/Vol] 20 U/L 10 - 52 U/L [facility] AST [Catalytic activity/Vol] 31 U/L 10 - 39 U/L [facility] Bilirubin [Mass/Vol] 1.0 mg/dL NINF - 1.5 mg/dL [facility] Bilirubin.direct [Mass/Vol] 0.3 mg/dL High NINF - 0.3 mg/dL [facility] Protein [Mass/Vol] 6.6 g/dL 6.4 - 8.3 g/dL [facility] HISTOPLASMA ANTIGEN,URINEon 09-02-2023 H. capsulatum Ag (U) [Mass/Vol] Not detected ng/mL [facility] H. capsulatum Ag IA Ql (U) Not detected Not Detected [facility] HIV 1 AND 2 ANTIBODIES/P24 A NTIGENOrdered By: Wilma Luque on 09-02-2023 HIV 1+2 Ab+HIV1 p24 Ag IA Ql Non-Reactive Non Reactive [facility] Interpretation and review of laboratory results Normal [facility] MAGNESIUMon 09-02-2023 Interpretation and review of laboratory results Normal [facility] Magnesium [Mass/Vol] 1.7 mg/dL 1.6 - 2 .6 mg/dL [facility] No Panel Informationon 09-02 Interpretation and review of laboratory results Abnormal [facility] TACROLIMUS LEVEL, TROUGH (ID E DRUG LEVEL)on 09-02-2023 Interpretation and review of laboratory results Normal [facility] Tacrolimus (Bld) [Mass/Vol] 4.2 ng/mL [facility] CBC,PLATELETSon 09-01-2023 Erythrocyte distribution width (RBC) [Ratio] 13.4 % 10.9 - 14.3 % [facility] Hematocrit (Bld) [Volume fraction] 38.9 % Low 39.6 - 48.8 % [facility] Hemoglobin (Bld) [Mass/Vol] 12.7 g/dL Low 13.4 - 16.8 g/dL [facility] Interpretation and review of laboratory results Abnormal [facility] MCH (RBC) [Entitic mass] 27.6 pg 26.1 - 33.3 pg [facility] MCHC (RBC) [Mass/Vol] 32.6 g/dL 31.9 - 36.5 g/dL [facility] MCV (RBC) [Entitic vol] 84.6 fL 79.0 - 94.5 fL [facility] Platelet mean volume (Bld) [Entitic vol] 9.4 fL 8.7 - 12.3 fL [facility] Platelets (Bld) [#/Vol] 209 10*3/uL 146 - 337 K/uL [facility] RBC (Bld) [#/Vol] 4.60 10*6/uL [facility] WBC (Bld) [#/Vol] 4.41 10*3/uL 3.73 - 10. 10 K/uL [facility] CHEM 7 (LYTES,BUN,CREA,GLUC) on 09-01-2023 Anion gap [Moles/Vol] 14 mmol/L 7 - 17 mmol/L [facility] Chloride [Moles/Vol] 103 mmol/L 98 - 10 8 mmol/L [facility] CO2 [Moles/Vol] 21 mmol/L 21 - 31 mmol/L [facility] Creatinine [Mass/Vol] 1.16 mg/dL 0.70 - 1.30 mg/dL [facility] eGFR, CKD-EPI, Male 77 - PINF [facility] Glucose [Mass/Vol] 117 mg/dL High 70 - 99 mg/dL [facility] Osmolality Calc [Osmolality] 285 [facility] Potassium [Moles/Vol] 4.2 mmol/L 3.5 - 5.0 mmol/L [facility] Sodium [Moles/Vol] 134 mmol/L Low 135 - 145 mmol/L [facility] Urea nitrogen [Mass/Vol] 18 mg/dL 7 - 25 mg/dL [facility] Urea nitrogen/Creatinine [Mass ratio] 16 mg/mg [facility] CRYPTOCOCCAL ANTIGENon 09-01 Cryptococcus sp Ag Ql (S) Negative Negative [facility] Interpretation and review of laboratory results Normal [facility] HEPATIC FUNCTION PANELon Albumin [Mass/Vol] 3.3 g/dL Low 3.5 - 5.0 g/dL [facility] ALP [Catalytic activity/Vol] 112 U/L 32 - 126 U/L [facility] ALT [Catalytic activity/Vol] 21 U/L 10 - 52 U/L [facility] AST [Catalytic activity/Vol] 29 U/L 10 - 39 U/L [facility] Bilirubin [Mass/Vol] 1.0 mg/dL NINF - 1.5 mg/dL [facility] Bilirubin.direct [Mass/Vol] 0.2 mg/dL NINF - 0.3 mg/dL [facility] Protein [Mass/Vol] 6.8 g/dL 6.4 - 8.3 g/dL [facility] L. pneumophila 1 Ag IA Ql (U )Ordered By: Carolin Miles on 09-01-2023 Interpretation and review of laboratory results Normal [facility] LEGIONELLA URINARY AGOrdered By: Carolin Miles on 09-01-2023 L. pneumophila 1 Ag IA Ql (U) Negative Negative [facility] MAGNESIUMon 09-01-2023 Interpretation and review of laboratory results Normal [facility] Magnesium [Mass/Vol] 1.6 mg/dL 1.6 - 2 .6 mg/dL [facility] No Panel Informationon 09-01 Interpretation and review of laboratory results Abnormal [facility] CBC,PLATELETSon 08-31-2023 Erythrocyte distribution width (RBC) [Ratio] 13.3 % 10.9 - 14.3 % [facility] Hematocrit (Bld) [Volume fraction] 39.4 % Low 39.6 - 48.8 % [facility] Hemoglobin (Bld) [Mass/Vol] 12.8 g/dL Low 13.4 - 16.8 g/dL [facility] Interpretation and review of laboratory results Abnormal [facility] MCH (RBC) [Entitic mass] 27.6 pg 26.1 - 33.3 pg [facility] MCHC (RBC) [Mass/Vol] 32.5 g/dL 31.9 - 36.5 g/dL [facility] MCV (RBC) [Entitic vol] 85.1 fL 79.0 - 94.5 fL [facility] Platelet mean volume (Bld) [Entitic vol] 9.6 fL 8.7 - 12.3 fL [facility] Platelets (Bld) [#/Vol] 228 10*3/uL 146 - 337 K/uL [facility] RBC (Bld) [#/Vol] 4.63 10*6/[facility]L [facility] [#/Vol] 4.77 10*3/uL 3.73 - 10. 10 K/[facility]L [facility] CHEM 7 (LYTES,BUN,CREA,GLUC) on 08-31-2023 Anion gap [Moles/Vol] 13 mmol/L 7 - 17 mmol/L [facility] Chloride [Moles/Vol] 102 mmol/L 98 - 10 8 mmol/L [facility] CO2 [Moles/Vol] 23 mmol/L 21 - 31 mmol/L [facility] Creatinine [Mass/Vol] 1.37 mg/dL High 0.70 - 1.30 mg/dL [facility] eGFR, CKD-EPI, Male 62 - PINF [facility] Glucose [Mass/Vol] 112 mg/dL High 70 - 99 mg/dL [facility] Osmolality Calc [Osmolality] 284 [facility] Potassium [Moles/Vol] 4.4 mmol/L 3.5 - 5.0 mmol/L [facility] Sodium [Moles/Vol] 134 mmol/L Low 135 - 145 mmol/L [facility] Urea nitrogen [Mass/Vol] 16 mg/dL 7 - 25 mg/dL [facility] Urea nitrogen/Creatinine [Mass ratio] 12 [facility]vis [facility] con traston 08-31-2023 RAD[facility]OLOGY [facility] Study observation (narrative) [facility] CT Abdomen and Pelvis WO con trastOrdered By: Chavez Larkin on 08-31-2023 [facility] Work Phone: CT Chest WO contraston 08-31 RADIOLOGY RADIOLOGY [facility] Radiology Study observation (narrative) [facility] CT Chest WO contrastOrdered By: Daisha Patterson on 08-31-2023 [facility] Work Phone: FERRITINon 08-31-2023 Ferritin [Mass/Vol] 409.0 ng/mL High 10.5 - 3 07.3 ng/mL [facility] Interpretation and review of laboratory results Abnormal [facility] HEPATIC FUNCTION PANELon Albumin [Mass/Vol] 3.3 g/dL Low 3.5 - 5.0 g/dL [facility] ALP [Catalytic activity/Vol] 113 U/L 32 - 126 U/L [facility] ALT [Catalytic activity/Vol] 25 U/L 10 - 52 U/L [facility] AST [Catalytic activity/Vol] 31 U/L 10 - 39 U/L [facility] Bilirubin [Mass/Vol] 1.1 mg/dL NINF - 1.5 mg/dL [facility] Bilirubin.direct [Mass/Vol] 0.3 mg/dL High NINF - 0.3 mg/dL [facility] Protein [Mass/Vol] 7.0 g/dL 6.4 - 8.3 g/dL [facility] MAGNESIUMon 08-31-2023 Interpretation and review of laboratory results Normal [facility] Magnesium [Mass/Vol] 1.7 mg/dL 1.6 - 2 .6 mg/dL [facility] No Panel Informationon 08-31 Interpretation and review of laboratory results Abnormal [facility] PROCALCITONINon 08-31-2023 Interpretation and review of laboratory results Normal [facility] Procalcitonin [Mass/Vol] 0.23 ng/mL NINF - 0.50 ng/mL [facility] TACROLIMUS LEVEL, TROUGH (ID E DRUG LEVEL)Ordered By: Yanira Marcum on 08-31-2023 Interpretation and review of laboratory results Normal [facility] Tacrolimus (Bld) [Mass/Vol] 5.9 ng/mL [facility] URINE CULTUREOrdered By: Jorge Lozano on 08-31-2023 Bacteria identified Cx Nom (Unsp spec) No Growth [facility] DARYL AURIS SCREEN BY PCRO rdered By: Mynor Alejandro on 08-30-2023 Daryl auris Screen by PCR Not detected Not Detected [facility] Interpretation and review of laboratory results Normal [facility] CBC,PLATELETSon 08-30-2023 Erythrocyte distribution width (RBC) [Ratio] 13.3 % 10.9 - 14.3 % [facility] Hematocrit (Bld) [Volume fraction] 41.3 % 39.6 - 48.8 % [facility] Hemoglobin (Bld) [Mass/Vol] 13.2 g/dL Low 13.4 - 16.8 g/dL [facility] Interpretation and review of laboratory results Abnormal [facility] MCH (RBC) [Entitic mass] 27.3 pg 26.1 - 33.3 pg [facility] MCHC (RBC) [Mass/Vol] 32.0 g/dL 31.9 - 36.5 g/dL [facility] MCV (RBC) [Entitic vol] 85.5 fL 79.0 - 94.5 fL [facility] Platelet mean volume (Bld) [Entitic vol] 9.2 fL 8.7 - 12.3 fL [facility] Platelets (Bld) [#/Vol] 235 10*3/uL 146 - 337 K/uL [facility] RBC (Bld) [#/Vol] 4.83 10*6/uL [facility] WBC (Bld) [#/Vol] 4.96 10*3/uL 3.73 - 10. 10 K/uL [facility] CHEM 7 (LYTES,BUN,CREA,GLUC) on 08-30-2023 Anion gap [Moles/Vol] 14 mmol/L 7 - 17 mmol/L [facility] Chloride [Moles/Vol] 102 mmol/L 98 - 10 8 mmol/L [facility] CO2 [Moles/Vol] 20 mmol/L Low 21 - 31 mmol/L [facility] Creatinine [Mass/Vol] 1.56 mg/dL High 0.70 - 1.30 mg/dL [facility] eGFR, CKD-EPI, Male 54 Low - PINF [facility] Glucose [Mass/Vol] 123 mg/dL High 70 - 99 mg/dL [facility] Osmolality Calc [Osmolality] 281 [facility] Potassium [Moles/Vol] 4.3 mmol/L 3.5 - 5.0 mmol/L [facility] Sodium [Moles/Vol] 132 mmol/L Low 135 - 145 mmol/L [facility] Urea nitrogen [Mass/Vol] 16 mg/dL 7 - 25 mg/dL [facility] Urea nitrogen/Creatinine [Mass ratio] 10 mg/mg [facility] EXTRA MICROon 08-30-2023 [facility] HEPATIC FUNCTION PANELon Albumin [Mass/Vol] 3.7 g/dL 3.5 - 5.0 g/dL [facility] ALP [Catalytic activity/Vol] 115 U/L 32 - 126 U/L [facility] ALT [Catalytic activity/Vol] 22 U/L 10 - 52 U/L [facility] AST [Catalytic activity/Vol] 34 U/L 10 - 39 U/L [facility] Bilirubin [Mass/Vol] 1.2 mg/dL NINF - 1.5 mg/dL [facility] Bilirubin.direct [Mass/Vol] 0.3 mg/dL High NINF - 0.3 mg/dL [facility] Protein [Mass/Vol] 7.7 g/dL 6.4 - 8.3 g/dL [facility] MAGNESIUMon 08-30-2023 Interpretation and review of laboratory results Normal [facility] Magnesium [Mass/Vol] 1.8 mg/dL 1.6 - 2 .6 mg/dL [facility] No Panel Informationon 08-30 Interpretation and review of laboratory results Abnormal [facility] CBC,PLATELETSon 08-29-2023 Erythrocyte distribution width (RBC) [Ratio] 13.4 % 10.9 - 14.3 % [facility] Hematocrit (Bld) [Volume fraction] 37.6 % Low 39.6 - 48.8 % [facility] Hemoglobin (Bld) [Mass/Vol] 12.2 g/dL Low 13.4 - 16.8 g/dL [facility] Interpretation and review of laboratory results Abnormal [facility] MCH (RBC) [Entitic mass] 27.6 pg 26.1 - 33.3 pg [facility] MCHC (RBC) [Mass/Vol] 32.4 g/dL 31.9 - 36.5 g/dL [facility] MCV (RBC) [Entitic vol] 85.1 fL 79.0 - 94.5 fL [facility] Platelet mean volume (Bld) [Entitic vol] 9.4 fL 8.7 - 12.3 fL [facility] Platelets (Bld) [#/Vol] 233 10*3/uL 146 - 337 K/uL [facility] RBC (Bld) [#/Vol] 4.42 10*6/uL [facility] WBC (Bld) [#/Vol] 4.92 10*3/uL 3.73 - 10. 10 K/uL [facility] CHEM 7 (LYTES,BUN,CREA,GLUC) on 08-29-2023 Anion gap [Moles/Vol] 13 mmol/L 7 - 17 mmol/L [facility] Chloride [Moles/Vol] 105 mmol/L 98 - 10 8 mmol/L [facility] CO[facility] [Moles/Vol] 20 mmol/L Low 21 - 31 mmol/L [facility] Creatinine [Mass/Vol] 1.55 mg/dL High 0.70 - 1.30 mg/dL [facility] eGFR, CKD-EPI, Male 55 Low - [facility]F [facility] Glucose [Mass/Vol] 108 mg/dL High 70 - 99 mg/dL [facility] Osmolality Calc [Osmolality] 283 [facility] Potassium [Moles/Vol] 4.5 mmol/L 3.5 - 5.0 mmol/L [facility] Sodium [Moles/Vol] 133 mmol/L Low 135 - 145 mmol/L [facility] Urea nitrogen [Mass/Vol] 19 mg/dL 7 - 25 mg/dL [facility] Urea nitrogen/Creatinine [Mass ratio] 12 mg/mg [facility] GGTon 08-29-2023 Gamma glutamyl transferase [Catalytic activity/Vol] 64 U/L 8 - 64 U/L [facility] Interpretation and review of laboratory results Normal [facility] HEPATIC FUNCTION PANELon Albumin [Mass/Vol] 3.3 g/dL Low 3.5 - 5.0 g/dL [facility] ALP [Catalytic activity/Vol] 103 U/L 32 - 126 U/L [facility] ALT [Catalytic activity/Vol] 18 U/L 10 - 52 U/L [facility] AST [Catalytic activity/Vol] 27 U/L 10 - 39 U/L [facility] Bilirubin [Mass/Vol] 1.1 mg/dL NINF - 1.5 mg/dL [facility] Bilirubin.direct [Mass/Vol] 0.3 mg/dL High NINF - 0.3 mg/dL [facility] Protein [Mass/Vol] 6.8 g/dL 6.4 - 8.3 g/dL [facility] MAGNESIUMon 08-29-2023 Interpretation and review of laboratory results Normal [facility] Magnesium [Mass/Vol] 1.7 mg/dL 1.6 - 2 .6 mg/dL [facility] No Panel Informationon 08-29 Interpretation and review of laboratory results Abnormal [facility] PT,INR,PTTon 08-29-2023 aPTT Coag (PPP) [Time] 29.3 s [facility] INR Coag (Bld) [Relative time] 1.1 {INR} 0.9 - 1.1 [facility] Interpretation and review of laboratory results Normal [facility] PT Coag (PPP) [Time] 13.8 s [facility] Portable XR Chest Viewson RADIOLOGY RADIOLOGY [facility] Portable XR Chest ViewsOrder ed By: Gerald Baer on 08-29-2023 [facility] Work Phone: TACROLIMUS LEVEL, TROUGH (ID E DRUG LEVEL)on 08-29-2023 Interpretation and review of laboratory results Normal [facility] Tacrolimus (Bld) [Mass/Vol] 8.9 ng/mL [facility] TACROLIMUS LEVEL, TROUGH (ID E DRUG LEVEL)Ordered By: Roxanne Louie on 08-29-2023 Interpretation and review of laboratory results Normal [facility] Tacrolimus (Bld) [Mass/Vol] 8.7 ng/mL [facility] URINALYSIS REFLEX TO CULTURE PERFORMABLEOrdered By: Shaji Kelly on 08-29-2023 Appearance (U) Clear Clear [facility] Bacteria LM Ql (Urine sed) ABSENT ABSENT [facility] Calcium Oxalate Crystals PRESENT [facility] Color (U) Yellow Yellow [facility] Epithelial cells.squamous LM Ql (Urine sed) 0-2/hpf 0-2/hpf, 3-5/hpf = 1+ [facility] Glucose Test strip (U) [Mass/Vol] Negative Negative [facility] Interpretation and review of laboratory results Abnormal [facility] Ketones (U) [Mass/Vol] Negative Negative [facility] Leukocyte esterase Test strip Ql (U) Negative Negative [facility] Nitrite Ql (U) Negative Negative [facility] pH (U) 6.0 [pH] 5.0 - 7.0 [facility] Protein (U) [Mass/Vol] Negative Negative [facility] RBC (U) [#/Vol] Trace Abnormal Negative [facility] RBC LM.HPF (Urine sed) [#/Area] 3-5 Abnormal [facility] Specific gravity (U) [Rel density] 1.015 1.001 - 1.035 [facility] Urobilinogen (U) [Mass/Vol] 1.0 E.U./dL 0.2 E.U/dL, 1.0 E.U/dL [facility] WBC LM.HPF (Urine sed) [#/Area] 0 - 5 [facility] US for transplanted kidney l imitedon 08-29-2023 RADIOLOGY RADIOLOGY [facility] Radiology Study observation (narrative) [facility] US for transplanted kidney l imitedOrdered By: Romana Matias on 08-29-2023 [facility] Work Phone: CBC AND ELECTRONIC DIFFon Basophils (Bld) [#/Vol] K/uL 0.00 - 0.09 K/uL [facility] Basophils/100 WBC (Bld) 0.6 % [facility] Differential cell count method Nom (Bld) Electronic Differential [facility] Eosinophils (Bld) [#/Vol] 0.10 10*3/uL 0.00 - 0.48 K/uL [facility] Eosinophils/100 WBC (Bld) 2.1 % [facility] Erythrocyte distribution width (RBC) [Ratio] 13.4 % 10.9 - 14.3 % [facility] Hematocrit (Bld) [Volume fraction] 37.9 % Low 39.6 - 48.8 % [facility] Hemoglobin (Bld) [Mass/Vol] 12.4 g/dL Low 13.4 - 16.8 g/dL [facility] Immature granulocytes (Bld) [#/Vol] K/uL NINF - 0.07 K/uL [facility] Immature granulocytes/100 WBC (Bld) 0.6 % [facility] Interpretation and review of laboratory results Abnormal [facility] Lymphocytes (Bld) [#/Vol] 1.76 10*3/uL 0.83 - 3.57 K/uL [facility] Lymphocytes/100 WBC (Bld) 37.1 % [facility] MCH (RBC) [Entitic mass] 27.8 pg 26.1 - 33.3 pg [facility] MCHC (RBC) [Mass/Vol] 32.7 g/dL 31.9 - 36.5 g/dL [facility] MCV (RBC) [Entitic vol] 85.0 fL 79.0 - 94.5 fL [facility] Monocytes (Bld) [#/Vol] 0.66 10*3/uL 0.24 - 0.93 K/uL [facility] Monocytes/100 WBC (Bld) 13.9 % [facility] Neutrophils (Bld) [#/Vol] 2.16 10*3/uL 1.57 - 6.19 K/uL [facility] Nucleated RBC/100 WBC (Bld) [Ratio] 0.0 % [facility] Platelet mean volume (Bld) [Entitic vol] 9.3 fL 8.7 - 12.3 fL [facility] Platelets (Bld) [#/Vol] 262 10*3/uL 146 - 337 K/uL [facility] RBC (Bld) [#/Vol] 4.46 10*6/uL [facility] Segmented neutrophils/100 WBC (Bld) 45.7 % [facility] WBC (Bld) [#/Vol] 4.74 10*3/uL 3.73 - 10. 10 K/uL [facility] CHEM 6 (LYTES, BUN CREA)on 0 08-28-2023 Anion gap [Moles/Vol] 13 mmol/L 7 - 17 mmol/L [facility] Chloride [Moles/Vol] 103 mmol/L 98 - 10 8 mmol/L [facility] CO2 [Moles/Vol] 22 mmol/L 21 - 31 mmol/L [facility] Creatinine [Mass/Vol] 1.62 mg/dL High 0.70 - 1.30 mg/dL [facility] eGFR, CKD-EPI, Male 52 Low - PINF [facility] Interpretation and review of laboratory results Abnormal [facility] Potassium [Moles/Vol] 4.3 mmol/L 3.5 - 5.0 mmol/L [facility] Sodium [Moles/Vol] 134 mmol/L Low 135 - 145 mmol/L [facility] Urea nitrogen [Mass/Vol] 22 mg/dL 7 - 25 mg/dL [facility] Urea nitrogen/Creatinine [Mass ratio] 14 mg[facility] Radiology Study observation (narrative) [facility] Respiratory virus DNA+RNA NA A+probe Nom (Unsp spec)Ordered By: Dayami Harris on 08-28-2023 Adenovirus DNA ESTELITA+probe Nom (Unsp spec) Not detected Not Detected [facility] B. parapertussis DNA ESTELITA+probe Ql (Unsp spec) Not detected Not Detected [facility] B. pertussis DNA ESTELITA+probe Ql (Unsp spec) Not detected Not Detected [facility] C. pneumoniae DNA ESTELITA+probe Ql (Unsp spec) Not detected Not Detected [facility] FLUAV RNA ESTELITA+probe Ql (Unsp spec) Not detected Not Detected [facility] FLUBV RNA ESTELITA+probe Ql (Unsp spec) Not detected Not Detected [facility] HCoV 229E RNA ESTELITA+non-probe Ql (Nph) Not detected Not Detected [facility] HCoV HKU1 RNA ESTELITA+non-probe Ql (Nph) Not detected Not Detected [facility] HCoV NL63 RNA ESTELITA+non-probe Ql (Nph) Not detected Not Detected [facility] HCoV OC43 RNA ESTELITA+non-probe Ql (Nph) Not detected Not Detected [facility] hMPV A RNA ESTELITA+probe Ql (Unsp spec) Not detected Not Detected [facility] Interpretation and review of laboratory results Normal [facility] M. pneumoniae DNA ESTELITA+probe Ql (Unsp spec) Not detected Not Detected [facility] Parainfluenza virus 1 RNA ESTELITA+probe Ql (Unsp spec) Not detected Not Detected [facility] Parainfluenza virus 2 RNA ESTELITA+probe Ql (Unsp spec) Not detected Not Detected [facility] Parainfluenza virus 3 RNA ESTELITA+probe Ql (Unsp spec) Not detected Not Detected [facility] Parainfluenza virus 4 RNA ESTELITA+probe Ql (Unsp spec) Not detected Not Detected [facility] Rhinovirus+Enterovir us RNA ESTELITA+probe Ql (Unsp spec) Not detected Not Detected [facility] RSV RNA ESTELITA+probe Ql (Unsp spec) Not detected Not Detected [facility] SARS-CoV-2 (COVID-19) RNA ESTELITA+probe Ql (Unsp spec) Not detected [facility] Albumin [Mass/Vol] 4.0 g/dL Normal 3.4-5.0 [facility] Comment on above: Performed By: #### C MP #### [facility] [address] [place] [address] Dr. Dwight Waters ALKALINE PHOSPHAon ALP [Catalytic activity/Vol] 106 U/L Normal 46-116 [facility] Comment on above: Performed By: #### F [id number] #### [facility] [address] [place] [address] Dr. Dwight Waters BILIRUBIN CONJUGATED (DIRECT )on 04-28-2023 BILI, CONJUGATED 0.3 mg/dL Critically high 0.0-0.2 [facility] Comment on above: Performed By: #### C MP #### [facility] [address] [place] [address] Dr. Dwight Waters BILIRUBIN TOTALon 04-28-2023 Bilirubin [Mass/Vol] 1.4 mg/dL Critically high 0.2-1.0 [facility] Comment on above: Performed By: #### C MP #### [facility] [address] [place] [address] Dr. Dwight Waters BUNon 04-28-2023 Urea nitrogen [Mass/Vol] 12.0 mg/dL Normal 7.0-18.0 [facility] Comment on above: Performed By: #### U RTPCR #### [facility] [address] [place] [address] Dr. Dwight Waters CALCIUMon 04-28-2023 Calcium [Mass/Vol] 9.3 mg/dL Normal 8.5-10.1 [facility] Comment on above: Performed By: #### U RTPCR #### [facility] [address] [place] [address] Dr. Dwight Waters CBC AUTO DIFFon 04-28-2023 BASO # 0.1 103/ul Normal 0.0-0.1 [facility] Comment on above: Performed By: #### C BC #### [facility] [address] [place] [address] Dr. Dwight Waters Basophils/100 WBC (Bld) 0.9 % Normal 0.2-2.0 [facility] Comment on above: Performed By: #### C BC #### [facility] [address] [place] [address] Dr. Dwight Waters EO # 0.2 103/ul Normal 0.0-0.7 [facility] Comment on above: Performed By: #### C BC #### [facility] [address] [place] [address] Dr. Dwight Waters Eosinophils/100 WBC (Bld) 3.8 % Normal 0.9-7.0 [facility] Comment on above: Performed By: #### C BC #### [facility] [address] [place] [address] Dr. Dwight Waters Erythrocyte distribution width (RBC) [Ratio] 12.5 % Normal 11.0-15.0 [facility] Comment on above: Performed By: #### C BC #### [facility] [address] [place] [address] Dr. Dwight Waters Hematocrit (Bld) [Volume fraction] 49.8 % Normal 42.0-54.0 [facility] Comment on above: Performed By: #### C BC #### [facility] [address] [place] [address] Dr. Dwight Waters Hemoglobin (Bld) [Mass/Vol] 16.4 g/dL Normal 14.0-18.0 [facility] Comment on above: Performed By: #### C BC #### [facility] [address] [place] [address] Dr. Dwight Waters IG # 0.01 10e3/ul Normal 0.00-0.03 [facility] Comment on above: Performed By: #### C BC #### [facility] [address] [place] [address] Dr. Dwight Waters IG % 0.2 % Normal 0.0-0.5 [facility] Comment on above: Performed By: #### C BC #### [facility] [address] [place] [address] Dr. Dwight Waters LYMPH # 2.1 103/ul Normal 1.2-3.8 [facility] Comment on above: Performed By: #### C BC #### [facility] [address] [place] [address] Dr. Dwight Waters Lymphocytes/100 WBC (Bld) 39.1 % Normal 20.5-60.0 [facility] Comment on above: Performed By: #### C BC #### [facility] [address] [place] [address] Dr. Dwight Waters MANUAL DIFF REQ NO Normal [facility] Comment on above: Performed By: #### C BC #### [facility] [address] [place] [address] Dr. Dwight Waters MCH (RBC) [Entitic mass] 28.6 pg Normal 25.9-34.0 [facility] Comment on above: Performed By: #### C BC #### [facility] [address] [place] [address] Dr. Dwight Waters MCHC (RBC) [Mass/Vol] 32.9 g/dL Normal 29.9-35.2 [facility] Comment on above: Performed By: #### C BC #### [facility] [address] [place] [address] Dr. Dwight Waters MCV (RBC) [Entitic vol] 86.9 fL Normal 80.0-94.0 [facility] Comment on above: Performed By: #### C BC #### [facility] [address] [place] [address] Dr. Dwight Waters MONO # 0.6 103/ul Normal 0.3-0.8 [facility] Comment on above: Performed By: #### C BC #### [facility] [address] [place] [address] Dr. Dwight Waters Monocytes/100 WBC (Bld) 10.6 % Normal 1.7-12.0 [facility] Comment on above: Performed By: #### C BC #### [facility] [address] [place] [address] Dr. Dwight Waters NEUT # 2.5 103/ul Normal 1.4-6.5 [facility] Comment on above: Performed By: #### C BC #### [facility] [address] [place] [address] Dr. Dwight Waters Neutrophils/100 WBC (Bld) 45.4 % Normal 43.0-75.0 [facility] Comment on above: Performed By: #### C BC #### [facility] [address] [place] [address] Dr. Dwight Waters Platelet mean volume (Bld) [Entitic vol] 9.3 fL Critically low 9.5-13.5 [facility] Comment on above: Performed By: #### C BC #### [facility] [address] [address] [address] Dwight Waters PLT 248 103/ul Normal 150-450 [facility] Comment on above: Performed By: #### C BC #### [facility] [address] [place] [address] Dr. Dwight Waters RBC 5.73 106/ul Normal 4.70-6.10 [facility] Comment on above: Performed By: #### C BC #### [facility] [address] [place] [address] Dr. Dwight Waters WBC 5.5 103/ul Normal 4.0-11.0 [facility] Comment on above: Performed By: #### C BC #### [facility] [address] [place] [address] Dr. Dwight Waters CHLORIDEon 04-28-2023 Chloride [Moles/Vol] 107 mmol/L Normal 98-107 [facility] Comment on above: Performed By: #### U RTPCR #### [facility] [address] [place] [address] Dr. Dwight Waters CO2on 04-28-2023 CO2 [Moles/Vol] 28.9 mmol/L Normal 21.0-32.0 [facility] Comment on above: Performed By: #### U RTPCR #### [facility] [address] [place] [address] Dr. Dwight Waters CREATININEon 04-28-2023 Creatinine [Mass/Vol] 1.17 mg/dL Normal 0.70-1.30 [facility] Comment on above: Performed By: #### U RTPCR #### [facility] [address] [place] [address] Dr. Dwight Waters EGFR-AF PALAUAN >60 Normal >=60 [facility] Comment on above: Performed By: #### U RTPCR #### [facility] [address] [place] [address] Dr. Dwight Waters EGFR-NON AF PALAUAN >60 Normal >=60 [facility] Comment on above: Performed By: #### U RTPCR #### [facility] [address] [place] [address] Dr. Dwight Waters GGTon 04-28-2023 Gamma glutamyl transferase [Catalytic activity/Vol] 27 U/L Normal 15-85 [facility] Comment on above: Performed By: #### U RTPCR #### [facility] [address] [place] [address] Dr. Dwight Waters GLUCOSE BLOODon 04-28-2023 Glucose [Mass/Vol] 110 mg/dL Critically high 74-106 [facility] Comment on above: Performed By: #### U RTPCR #### [facility] [address] [place] [address] Dr. Dwight Waters MAGNESIUMon 04-28-2023 Magnesium [Mass/Vol] 1.7 mg/dL Critically low 1.8-2.4 [facility] Comment on above: Performed By: #### U RTPCR #### [facility] [address] [place] [address] Dr. Dwight Waters NAon 04-28-2023 Sodium [Moles/Vol] 144 mmol/L Normal 136-145 [facility] Comment on above: Performed By: #### U RTPCR #### [facility] [address] [place] [address] Dr. Dwight Waters PHOSPHORUSon 04-28-2023 Phosphate [Mass/Vol] 3.2 mg/dL Normal 2.6-4.7 [facility] Comment on above: Performed By: #### U RTPCR #### [facility] [address] [place] [address] Dr. Dwight Waters POTASSIUMon 04-28-2023 Potassium [Moles/Vol] 4.0 mmol/L Normal 3.5-5.1 [facility] Comment on above: Performed By: #### U RTPCR #### [facility] [address] [place] [address] Dr. Dwight Waters SGOTon 04-28-2023 AST [Catalytic activity/Vol] 25 U/L Normal 15-37 [facility] Comment on above: Performed By: #### C MP #### [facility] [address] [place] [address] Dr. Dwight Waters SGPTon 04-28-2023 ALT [Catalytic activity/Vol] 40 U/L Normal 16-63 [facility] Comment on above: Performed By: #### C MP #### [facility] [address] [place] [address] Dr. Dwight Waters URINE T PROTEIN CREAT RATIOo n 04-28-2023 Protein (U) [Mass/Vol] 10.1 mg/dL Normal <=12.0 [facility] Comment on above: Performed By: #### U RTPCR #### [facility] [address] [place] [address] Dr. Dwight Waters UR PROT CREAT RAT 0.[address] [facility] Comment on above: Performed By: #### U RTPCR #### [facility] [address] [place] [address] Dr. Dwight Waters URINE CREAT 74.40 mg/dL Normal 20.00-300.00 [facility] Comment on above: Performed By: #### U RTPCR #### [facility] [address] [place] [address] Dr. Dwight Waters BK VIRUS PCR QUANTon 023 BKV DNA QUANT PCR PLASMA Negative Normal Negative [facility] Comment on above: Result Comment: No B K DNA detected. . The linear range of the assay is 22 - 100,000,000 IU/mL. Performed By: #### B KVIRUS #### [facility] [address] [place] [address] Dr. Dwight Waters Log10 BKV DNA Plasma Normal [facility] Comment on above: Performed By: #### B KVIRUS #### [facility] [address] [place] [address] Dr. Dwight Waters FK506 (TACROLIMUS) WHOLE BLO ODon 03-04-2023 Tacrolimus (FK506), Blood 5.9 ng/mL Normal 2.0-20.0 [facility] Comment on above: Result Comment: Trou gh (immediately following transplant) 15.0 . Trough (steady state, 2 weeks or more after transplant): 3.0 - 8.0 . Performed by LC-MS/MS technology. Performed By: #### C MP #### [facility] [address] [place] [address] Dr. Dwight Waters ALBUMINon 03-02-2023 Albumin [Mass/Vol] 3.9 g/dL Normal 3.4-5.0 [facility] Comment on above: Performed By: #### U RTPCR #### [facility] [address] [place] [address] Dr. Dwight Waters ALKALINE PHOSPHAon ALP [Catalytic activity/Vol] 105 U/L Normal 46-116 [facility] Comment on above: Performed By: #### U RTPCR #### [facility] [address] [place] [address] Dr. Dwight Waters BILIRUBIN CONJUGATED (DIRECT )on 03-02-2023 BILI, CONJUGATED 0.2 mg/dL Normal 0.0-0.2 [facility] Comment on above: Performed By: #### U RTPCR #### [facility] [address] [place] [address] Dr. Dwight Waters BILIRUBIN TOTALon 03-02-2023 Bilirubin [Mass/Vol] 0.9 mg/dL Normal 0.2-1.0 [facility] Comment on above: Performed By: #### U RTPCR #### [facility] [address] [place] [address] Dr. Dwight Waters CBC AUTO DIFFon 03-02-2023 BASO # 0.1 103/ul Normal 0.0-0.1 [facility] Comment on above: Performed By: #### C BC #### [facility] [address] [place] [address] Dr. Dwight Waters Basophils/100 WBC (Bld) 0.9 % Normal 0.2-2.0 [facility] Comment on above: Performed By: #### C BC #### [facility] [address] [place] [address] Dr. Dwight Waters EO # 0.2 103/ul Normal 0.0-0.7 [facility] Comment on above: Performed By: #### C BC #### [facility] [address] [place] [address] Dr. Dwight Waters Eosinophils/100 WBC (Bld) 3.5 % Normal 0.9-7.0 [facility] Comment on above: Performed By: #### C BC #### [facility] [address] [place] [address] Dr. Dwight Waters Erythrocyte distribution width (RBC) [Ratio] 12.7 % Normal 11.0-15.0 [facility] Comment on above: Performed By: #### C BC #### [facility] [address] [place] [address] Dr. Dwight Waters Hematocrit (Bld) [Volume fraction] 48.2 % Normal 42.0-54.0 [facility] Comment on above: Performed By: #### C BC #### [facility] [address] [place] [address] Dr. Dwight Waters Hemoglobin (Bld) [Mass/Vol] 15.9 g/dL Normal 14.0-18.0 [facility] Comment on above: Performed By: #### C BC #### [facility] [address] [place] [address] Dr. Dwight Waters IG # 0.01 10e3/ul Normal 0.00-0.03 [facility] Comment on above: Performed By: #### C BC #### [facility] [address] [place] [address] Dr. Dwight Waters IG % 0.2 % Normal 0.0-0.5 [facility] Comment on above: Performed By: #### C BC #### [facility] [address] [place] [address] Dr. Dwight Waters LYMPH # 2.1 103/ul Normal 1.2-3.8 [facility] Comment on above: Performed By: #### C BC #### [facility] [address] [place] [address] Dr. Dwight Waters Lymphocytes/100 WBC (Bld) 37.4 % Normal 20.5-60.0 [facility] Comment on above: Performed By: #### C BC #### [facility] [address] [place] [address] Dr. Dwight Waters MANUAL DIFF REQ NO Normal [facility] Comment on above: Performed By: #### C BC #### [facility] [address] [place] [address] Dr. Dwight Waters MCH (RBC) [Entitic mass] 28.3 pg Normal 25.9-34.0 [facility] Comment on above: Performed By: #### C BC #### [facility] [address] [place] [address] Dr. Dwight Waters MCHC (RBC) [Mass/Vol] 33.0 g/dL Normal 29.9-35.2 [facility] Comment on above: Performed By: #### C BC #### [facility] [address] [place] [address] Dr. Dwight Waters MCV (RBC) [Entitic vol] 85.8 fL Normal 80.0-94.0 [facility] Comment on above: Performed By: #### C BC #### [facility] [address] [place] [address] Dr. Dwight Waters MONO # 0.6 103/ul Normal 0.3-0.8 [facility] Comment on above: Performed By: #### C BC #### [facility] [address] [place] [address] Dr. Dwight Waters Monocytes/100 WBC (Bld) 10.2 % Normal 1.7-12.0 [facility] Comment on above: Performed By: #### C BC #### [facility] [address] [place] [address] Dr. Dwight Waters NEUT # 2.7 103/ul Normal 1.4-6.5 [facility] Comment on above: Performed By: #### C BC #### [facility] [address] [place] [address] Dr. Dwight Waters Neutrophils/100 WBC (Bld) 47.8 % Normal 43.0-75.0 [facility] Comment on above: Performed By: #### C BC #### [facility] [address] [place] [address] Dr. Dwight Waters Platelet mean volume (Bld) [Entitic vol] 9.3 fL Critically low 9.5-13.5 [facility] Comment on above: Performed By: #### C BC #### [facility] [address] [place] [address] Dr. Dwight Waters PLT 241 103/ul Normal 150-450 [facility] Comment on above: Performed By: #### C BC #### [facility] [address] [place] [address] Dr. Dwight Waters RBC 5.62 106/ul Normal 4.70-6.10 [facility] Comment on above: Performed By: #### C BC #### [facility] [address] [place] [address] Dr. Dwight Waters WBC 5.7 103/ul Normal 4.0-11.0 [facility] Comment on above: Performed By: #### C BC #### [facility] [address] [place] [address] Dr. Dwight Waters GGTon 03-02-2023 Gamma glutamyl transferase [Catalytic activity/Vol] 25 U/L Normal 15-85 [facility] Comment on above: Performed By: #### U RTPCR #### [facility] [address] [place] [address] Dr. Dwight Waters MAGNESIUMon 03-02-2023 Magnesium [Mass/Vol] 1.6 mg/dL Critically low 1.8-2.4 [facility] Comment on above: Performed By: #### U RTPCR #### [facility] [address] [place] [address] Dr. Dwight Waters PHOSPHORUSon 03-02-2023 Phosphate [Mass/Vol] 3.6 mg/dL Normal 2.6-4.7 [facility] Comment on above: Performed By: #### U RTPCR #### [facility] [address] [place] [address] Dr. Dwight Waters PROF CHEM 8 (BAS METB)on Anion gap [Moles/Vol] 9.4 mmol/L Normal [facility] Comment on above: Performed By: #### U RTPCR #### [facility] [address] [address] [address] Dwight Waters Calcium [Mass/Vol] 9.3 mg/dL Normal 8.5-10.1 [facility] Comment on above: Performed By: #### U RTPCR #### [facility] [address] [address] [address] Dwight Waters Chloride [Moles/Vol] 108 mmol/L Critically high 98-107 [facility] Comment on above: Performed By: #### U RTPCR #### [facility] [address] [address] [address] Dwight Waters CO2 [Moles/Vol] 27.2 mmol/L Normal 21.0-32.0 [facility] Comment on above: Performed By: #### U RTPCR #### [facility] [address] [place] [address] Dr. Dwight Waters Creatinine [Mass/Vol] 1.12 mg/dL Normal 0.70-1.30 [facility] Comment on above: Performed By: #### U RTPCR #### [facility] [address] [address] [address] Dwight Waters EGFR-AF PALAUAN >60 Normal >=60 [facility] Comment on above: Performed By: #### U RTPCR #### [facility] [address] [place] [address] Dr. Dwight Waters EGFR-NON AF PALAUAN >60 Normal >=60 [facility] Comment on above: Performed By: #### U RTPCR #### [facility] [address] [address] [address] Dwight Waters Glucose [Mass/Vol] 113 mg/dL Critically high 74-106 [facility] Comment on above: Performed By: #### U RTPCR #### [facility] [address] [address] [address] Dwight Waters Potassium [Moles/Vol] 3.6 mmol/L Normal 3.5-5.1 [facility] Comment on above: Performed By: #### U RTPCR #### [facility] [address] [address] [address] Dwight Waters Sodium [Moles/Vol] 141 mmol/L Normal 136-145 [facility] Comment on above: Performed By: #### U RTPCR #### [facility] [address] [place] [address] Dr. Dwight Waters Urea nitrogen [Mass/Vol] 14.0 mg/dL Normal 7.0-18.0 [facility] Comment on above: Performed By: #### U RTPCR #### [facility] [address] [place] [address] Dr. Dwight Waters Urea nitrogen/Creatinine [Mass ratio] 12.5 mg/mg Normal [facility] Comment on above: Performed By: #### U RTPCR #### [facility] [address] [place] [address] Dr. Dwight Waters SGOTon 03-02-2023 AST [Catalytic activity/Vol] 20 U/L Normal 15-37 [facility] Comment on above: Performed By: #### U RTPCR #### [facility] [address] [place] [address] Dr. Dwight Waters SGPTon 03-02-2023 ALT [Catalytic activity/Vol] 30 U/L Normal 16-63 [facility] Comment on above: Performed By: #### U RTPCR #### [facility] [address] [place] [address] Dr. Dwight Waters URINE T PROTEIN CREAT RATIOo n 03-02-2023 Protein (U) [Mass/Vol] 10.3 mg/dL Normal <=12.0 [facility] Comment on above: Performed By: #### U RTPCR #### [facility] [address] [place] [address] Dr. Dwight Waters UR PROT CREAT RAT 0.15 Normal [facility] Comment on above: Performed By: #### U RTPCR #### [facility] [address] [place] [address] Dr. Dwight Waters URINE CREAT 68.96 mg/dL Normal 20.00-300.00 [facility] Comment on above: Performed By: #### U RTPCR #### [facility] [address] [place] [address] Dr. Dwight Waters BK VIRUS PCR QUANTon 023 BKV DNA QUANT PCR PLASMA Negative Normal Negative [facility] Comment on above: Result Comment: No B K DNA detected. . The linear range of the assay is 22 - 100,000,000 IU/mL. Performed By: #### C MP #### [facility] [address] [place] [address] Dr. Dwight Waters Log10 BKV DNA Plasma Normal [facility] Comment on above: Performed By: #### C MP #### [facility] [address] [place] [address] Dr. Dwight Waters FK506 (TACROLIMUS) WHOLE BLO ODon 12-31-2022 Tacrolimus (FK506), Blood 5.6 ng/mL Normal 2.0-20.0 [facility] Comment on above: Result Comment: Trou gh (immediately following transplant) 15.0 . Trough (steady state, 2 weeks or more after transplant): 3.0 - 8.0 . Performed by LC-MS/MS technology. Performed By: #### C MP #### [facility] [address] [place] [address] Dr. Dwight Waters ALKALINE PHOSPHAon 3 ALP [Catalytic activity/Vol] 96 U/L Normal 46-116 [facility] Comment on above: Performed By: #### C BC #### [facility] [address] [place] [address] Dr. Dwight Waters BILIRUBIN CONJUGATED (DIRECT )on 12-29-2022 BILI, CONJUGATED 0.3 mg/dL Critically high 0.0-0.2 [facility] Comment on above: Performed By: #### C BC #### [facility] [address] [place] [address] Dr. Dwight Waters BILIRUBIN TOTALon 12-29-2022 Bilirubin [Mass/Vol] 1.1 mg/dL Critically high 0.2-1.0 [facility] Comment on above: Performed By: #### C BC #### [facility] [address] [place] [address] Dr. Dwight Waters CBC AUTO DIFFon 12-29-2022 BASO # 0.1 103/ul Normal 0.0-0.1 [facility] Comment on above: Performed By: #### C MP #### [facility] [address] [place] [address] Dr. Dwight Waters Basophils/100 WBC (Bld) 0.8 % Normal 0.2-2.0 [facility] Comment on above: Performed By: #### C MP #### [facility] [address] [place] [address] Dr. Dwight Waters EO # 0.2 103/ul Normal 0.0-0.7 [facility] Comment on above: Performed By: #### C MP #### [facility] [address] [place] [address] Dr. Dwight Waters Eosinophils/100 WBC (Bld) 3.0 % Normal 0.9-7.0 [facility] Comment on above: Performed By: #### C MP #### [facility] [address] [place] [address] Dr. Dwight Waters Erythrocyte distribution width (RBC) [Ratio] 12.9 % Normal 11.0-15.0 [facility] Comment on above: Performed By: #### C MP #### [facility] [address] [place] [address] Dr. Dwight Waters Hematocrit (Bld) [Volume fraction] 46.9 % Normal 42.0-54.0 [facility] Comment on above: Performed By: #### C MP #### [facility] [address] [place] [address] Dr. Dwight Waters Hemoglobin (Bld) [Mass/Vol] 16.1 g/dL Normal 14.0-18.0 [facility] Comment on above: Performed By: #### C MP #### [facility] [address] [place] [address] Dr. Dwight Waters IG # 0.01 10e3/ul Normal 0.00-0.03 [facility] Comment on above: Performed By: #### C MP #### [facility] [address] [place] [address] Dr. Dwight Waters IG % 0.2 % Normal 0.0-0.5 [facility] Comment on above: Performed By: #### C MP #### [facility] [address] [place] [address] Dr. Dwight Wtaers LYMPH # 1.8 103/ul Normal 1.2-3.8 [facility] Comment on above: Performed By: #### C MP #### [facility] [address] [place] [address] Dr. Dwight Waters Lymphocytes/100 WBC (Bld) 27.9 % Normal 20.5-60.0 [facility] Comment on above: Performed By: #### C MP #### [facility] [address] [place] [address] Dr. Dwight Waters MANUAL DIFF REQ NO Normal [facility] Comment on above: Performed By: #### C MP #### [facility] [address] [place] [address] Dr. Dwight Waters MCH (RBC) [Entitic mass] 28.5 pg Normal 25.9-34.0 [facility] Comment on above: Performed By: #### C MP #### [facility] [address] [place] [address] Dr. Dwight Waters MCHC (RBC) [Mass/Vol] 34.3 g/dL Normal 29.9-35.2 [facility] Comment on above: Performed By: #### C MP #### [facility] [address] [place] [address] Dr. Dwight Waters MCV (RBC) [Entitic vol] 83.2 fL Normal 80.0-94.0 [facility] Comment on above: Performed By: #### C MP #### [facility] [address] [place] [address] Dr. Dwight Waters MONO # 0.5 103/ul Normal 0.3-0.8 [facility] Comment on above: Performed By: #### C MP #### [facility] [address] [place] [address] Dr. Dwight Waters Monocytes/100 WBC (Bld) 8.1 % Normal 1.7-12.0 [facility] Comment on above: Performed By: #### C MP #### [facility] [address] [address] [address] Dwight Waters NEUT # 3.8 103/ul Normal 1.4-6.5 [facility] Comment on above: Performed By: #### C MP #### [facility] [address] [address] [address] Dwight Waters Neutrophils/100 WBC (Bld) 60.0 % Normal 43.0-75.0 [facility] Comment on above: Performed By: #### C MP #### [facility] [address] [place] [address] Dr. Dwight Waters Platelet mean volume (Bld) [Entitic vol] 9.2 fL Critically low 9.5-13.5 [facility] Comment on above: Performed By: #### C MP #### [facility] [address] [place] [address] Dr. Dwight Waters PLT 225 103/ul Normal 150-450 [facility] Comment on above: Performed By: #### C MP #### [facility] [address] [place] [address] Dr. Dwight Waters RBC 5.64 106/ul Normal 4.70-6.10 [facility] Comment on above: Performed By: #### C MP #### [facility] [address] [place] [address] Dr. Dwight Waters WBC 6.3 103/ul Normal 4.0-11.0 [facility] Comment on above: Performed By: #### C MP #### [facility] [address] [place] [address] Dr. Dwight Waters GGTon 12-29-2022 Gamma glutamyl transferase [Catalytic activity/Vol] 24 U/L Normal 15-85 [facility] Comment on above: Performed By: #### C MP #### [facility] [address] [place] [address] Dr. Dwight Waters LIPID PROFILEon 12-29-2022 CHOL-HDL RATIO NORM SEE BELOW Normal [facility] Comment on above: Result Comment: 3.3 - 4.4 LOW RISK 4.4 - 7.1 AVERAGE RISK 7.1 - 11.0 MODERATE RISK >11.0 HIGH RISK Performed By: #### U RTPCR #### [facility] [address] [place] [address] Dr. Dwight Waters Cholesterol [Mass/Vol] 87 mg/dL Normal <=200 [facility] Comment on above: Performed By: #### U RTPCR #### [facility] [address] [address] [address] Dwight Waters Cholesterol in HDL [Mass/Vol] 44 mg/dL Normal 40-60 [facility] Comment on above: Performed By: #### U RTPCR #### [facility] [address] [place] [address] Dr. Dwight Waters Cholesterol in LDL [Mass/Vol] 33.0 mg/dL Normal [facility] Comment on above: Performed By: #### U RTPCR #### [facility] [address] [place] [address] Dr. Dwight Waters Cholesterol.total/Ch olesterol in HDL [Mass ratio] 2.0 {ratio} Normal [facility] Comment on above: Performed By: #### U RTPCR #### [facility] [address] [place] [address] Dr. Dwight Waters HDL NORMAL > or = 60 mg/dl - LO W CARDIOVASCULAR RISK <40 mg/dl - HIGH CARDIOVASCULAR RISK Normal [facility] Comment on above: Performed By: #### U RTPCR #### [facility] [address] [place] [address] Dr. Dwight Waters LDL CALC NORMAL SEE BELOW Normal [facility] Comment on above: Result Comment: <100 mg/dl OPTIMAL 100 - 129 mg/dl NEAR OR ABOVE OPTIMAL 130 - 159 mg/dl BORDERLINE HIGH 160 - 189 mg/dl HIGH >190 mg/dl VERY HIGH Performed By: #### U RTPCR #### [facility] [address] [place] [address] Dr. Dwight Waters Triglyceride [Mass/Vol] 50 mg/dL Normal <=150 [facility] Comment on above: Performed By: #### U RTPCR #### [facility] [address] [address] [address] Dwight Waters VLDL CALC 10.0 mg/dL Normal [facility] Comment on above: Performed By: #### U RTPCR #### [facility] [address] [place] [address] Dr. Dwight Waters MAGNESIUMon 12-29-2022 Magnesium [Mass/Vol] 1.6 mg/dL Critically low 1.8-2.4 [facility] Comment on above: Performed By: #### C BC #### [facility] [address] [place] [address] Dr. Dwight Waters RENAL FUNCTION PANELon 12-29 Albumin [Mass/Vol] 3.9 g/dL Normal 3.4-5.0 [facility] Comment on above: Performed By: #### C BC #### [facility] [address] [place] [address] Dr. Dwight Waters Calcium [Mass/Vol] 9.2 mg/dL Normal 8.5-10.1 [facility] Comment on above: Performed By: #### C BC #### [facility] [address] [place] [address] Dr. Dwight Waters Chloride [Moles/Vol] 109 mmol/L Critically high 98-107 [facility] Comment on above: Performed By: #### C BC #### [facility] [address] [place] [address] Dr. Dwight Waters CO2 [Moles/Vol] 27.0 mmol/L Normal 21.0-32.0 [facility] Comment on above: Performed By: #### C BC #### [facility] [address] [place] [address] Dr. Dwight Waters Creatinine [Mass/Vol] 1.02 mg/dL Normal 0.70-1.30 [facility] Comment on above: Performed By: #### C BC #### [facility] [address] [place] [address] Dr. Dwight Waters EGFR-AF PALAUAN >60 Normal >=60 [facility] Comment on above: Performed By: #### C BC #### [facility] [address] [place] [address] Dr. Dwight Waters EGFR-NON AF PALAUAN >60 Normal >=60 [facility] Comment on above: Performed By: #### C BC #### [facility] [address] [place] [address] Dr. Dwight Waters Glucose [Mass/Vol] 117 mg/dL Critically high 74-106 [facility] Comment on above: Performed By: #### C BC #### [facility] [address] [place] [address] Dr. Dwight Waters Phosphate [Mass/Vol] 3.2 mg/dL Normal 2.6-4.7 [facility] Comment on above: Performed By: #### C BC #### [facility] [address] [place] [address] Dr. Dwight Waters Potassium [Moles/Vol] 4.1 mmol/L Normal 3.5-5.1 [facility] Comment on above: Performed By: #### C BC #### [facility] [address] [place] [address] Dr. Dwight Waters Sodium [Moles/Vol] 144 mmol/L Normal 136-145 [facility] Comment on above: Performed By: #### C BC #### [facility] [address] [place] [address] Dr. Dwight Waters Urea nitrogen [Mass/Vol] 13.0 mg/dL Normal 7.0-18.0 [facility] Comment on above: Performed By: #### C BC #### [facility] [address] [place] [address] Dr. Dwight Waters SGOTon 12-29-2022 AST [Catalytic activity/Vol] 21 U/L Normal 15-37 [facility] Comment on above: Performed By: #### C BC #### [facility] [address] [place] [address] Dr. Dwight Waters SGPTon 12-29-2022 ALT [Catalytic activity/Vol] 32 U/L Normal 16-63 [facility] Comment on above: Performed By: #### C BC #### [facility] [address] [address] [address] Dwight Waters URINE T PROTEIN CREAT RATIOo n 12-29-2022 Protein (U) [Mass/Vol] 14.3 mg/dL Critically high <=12.0 [facility] Comment on above: Performed By: #### U RTPCR #### [facility] [address] [place] [address] Dr. Dwight Waters UR PROT CREAT RAT 0.[address] [facility] Comment on above: Performed By: #### U RTPCR #### [facility] [address] [place] [address] Dr. Dwight Waters URINE CREAT 86.58 mg/dL Normal 20.00-300.00 [facility] Comment on above: Performed By: #### U RTPCR #### [facility] [address] [place] [address] Dr. Dwight Waters FK506 (TACROLIMUS) WHOLE BLO ODon 11-06-2022 Tacrolimus (FK506), Blood 4.9 ng/mL Normal 2.0-20.0 [facility] Comment on above: Result Comment: Trou gh (immediately following transplant) 15.0 . Trough (steady state, 2 weeks or more after transplant): 3.0 - 8.0 . Performed by LC-MS/MS technology. Performed By: #### U RTPCR #### [facility] [address] [place] [address] Dr. Dwight Waters ALKALINE PHOSPHAon ALP [Catalytic activity/Vol] 86 U/L Normal 46-116 [facility] Comment on above: Performed By: #### U RTPCR #### [facility] [address] [address] [address] Dwight Waters BILIRUBIN CONJUGATED (DIRECT )on 11-04-2022 BILI, CONJUGATED 0.2 mg/dL Normal 0.0-0.2 [facility] Comment on above: Performed By: #### U RTPCR #### [facility] [address] [place] [address] Dr. Dwight Waters BILIRUBIN TOTALon 11-04-2022 Bilirubin [Mass/Vol] 0.8 mg/dL Normal 0.2-1.0 [facility] Comment on above: Performed By: #### U RTPCR #### [facility] [address] [place] [address] Dr. Dwight Waters CBC AUTO DIFFon 11-04-2022 BASO # 0.1 103/ul Normal 0.0-0.1 [facility] Comment on above: Performed By: #### U RTPCR #### [facility] [address] [place] [address] Dr. Dwight Waters Basophils/100 WBC (Bld) 0.9 % Normal 0.2-2.0 [facility] Comment on above: Performed By: #### U RTPCR #### [facility] [address] [place] [address] Dr. Dwight Waters EO # 0.2 103/ul Normal 0.0-0.7 [facility] Comment on above: Performed By: #### U RTPCR #### [facility] [address] [place] [address] Dr. Dwight Waters Eosinophils/100 WBC (Bld) 3.7 % Normal 0.9-7.0 [facility] Comment on above: Performed By: #### U RTPCR #### [facility] [address] [place] [address] Dr. Dwight Waters Erythrocyte distribution width (RBC) [Ratio] 12.9 % Normal 11.0-15.0 [facility] Comment on above: Performed By: #### U RTPCR #### [facility] [address] [place] [address] Dr. Dwight Waters Hematocrit (Bld) [Volume fraction] 48.3 % Normal 42.0-54.0 [facility] Comment on above: Performed By: #### U RTPCR #### [facility] [address] [place] [address] Dr. Dwight Waters Hemoglobin (Bld) [Mass/Vol] 15.6 g/dL Normal 14.0-18.0 [facility] Comment on above: Performed By: #### U RTPCR #### [facility] [address] [place] [address] Dr. Dwight Waters IG # 0.01 10e3/ul Normal 0.00-0.03 [facility] Comment on above: Performed By: #### U RTPCR #### [facility] [address] [place] [address] Dr. Dwight Waters IG % 0.2 % Normal 0.0-0.5 [facility] Comment on above: Performed By: #### U RTPCR #### [facility] [address] [place] [address] Dr. Dwight Waters LYMPH # 1.9 103/ul Normal 1.2-3.8 [facility] Comment on above: Performed By: #### U RTPCR #### [facility] [address] [place] [address] Dr. Dwight Waters Lymphocytes/100 WBC (Bld) 33.0 % Normal 20.5-60.0 [facility] Comment on above: Performed By: #### U RTPCR #### [facility] [address] [place] [address] Dr. Dwight Waters MANUAL DIFF REQ NO Normal [facility] Comment on above: Performed By: #### U RTPCR #### [facility] [address] [place] [address] Dr. Dwight Waters MCH (RBC) [Entitic mass] 27.6 pg Normal 25.9-34.0 [facility] Comment on above: Performed By: #### U RTPCR #### [facility] [address] [place] [address] Dr. Dwight Waters MCHC (RBC) [Mass/Vol] 32.3 g/dL Normal 29.9-35.2 [facility] Comment on above: Performed By: #### U RTPCR #### [facility] [address] [place] [address] Dr. Dwight Waters MCV (RBC) [Entitic vol] 85.5 fL Normal 80.0-94.0 [facility] Comment on above: Performed By: #### U RTPCR #### [facility] [address] [place] [address] Dr. Dwight Waters MONO # 0.5 103/ul Normal 0.3-0.8 [facility] Comment on above: Performed By: #### U RTPCR #### [facility] [address] [place] [address] Dr. Dwight Waters Monocytes/100 WBC (Bld) 8.8 % Normal 1.7-12.0 [facility] Comment on above: Performed By: #### U RTPCR #### [facility] [address] [place] [address] Dr. Dwight Waters NEUT # 3.1 103/ul Normal 1.4-6.5 [facility] Comment on above: Performed By: #### U RTPCR #### [facility] [address] [place] [address] Dr. Dwight Waters Neutrophils/100 WBC (Bld) 53.4 % Normal 43.0-75.0 [facility] Comment on above: Performed By: #### U RTPCR #### [facility] [address] [place] [address] Dr. Dwight Waters Platelet mean volume (Bld) [Entitic vol] 9.2 fL Critically low 9.5-13.5 [facility] Comment on above: Performed By: #### U RTPCR #### [facility] [address] [place] [address] Dr. Dwight Waters PLT 255 103/ul Normal 150-450 [facility] Comment on above: Performed By: #### U RTPCR #### [facility] [address] [place] [address] Dr. Dwight Waetrs RBC 5.65 106/ul Normal 4.70-6.10 [facility] Comment on above: Performed By: #### U RTPCR #### [facility] [address] [place] [address] Dr. Dwight Waters WBC 5.7 103/ul Normal 4.0-11.0 [facility] Comment on above: Performed By: #### U RTPCR #### [facility] [address] [place] [address] Dr. Dwight Waters GGTon 11-04-2022 Gamma glutamyl transferase [Catalytic activity/Vol] 22 U/L Normal 15-85 [facility] Comment on above: Performed By: #### U RTPCR #### [facility] [address] [place] [address] Dr. Dwight Waters MAGNESIUMon 11-04-2022 Magnesium [Mass/Vol] 1.8 mg/dL Normal 1.8-2.4 [facility] Comment on above: Performed By: #### U RTPCR #### [facility] [address] [place] [address] Dr. Dwight Waters RENAL FUNCTION PANELon 11-04 Albumin [Mass/Vol] 3.8 g/dL Normal 3.4-5.0 [facility] Comment on above: Performed By: #### U RTPCR #### [facility] [address] [place] [address] Dr. Dwight Waters Calcium [Mass/Vol] 9.3 mg/dL Normal 8.5-10.1 [facility] Comment on above: Performed By: #### U RTPCR #### [facility] [address] [place] [address] Dr. Dwight Waters Chloride [Moles/Vol] 107 mmol/L Normal 98-107 [facility] Comment on above: Performed By: #### U RTPCR #### [facility] [address] [place] [address] Dr. Dwight Waters CO2 [Moles/Vol] 29.2 mmol/L Normal 21.0-32.0 [facility] Comment on above: Performed By: #### U RTPCR #### [facility] [address] [place] [address] Dr. Dwight Waters Creatinine [Mass/Vol] 1.07 mg/dL Normal 0.70-1.30 [facility] Comment on above: Performed By: #### U RTPCR #### [facility] [address] [place] [address] Dr. Dwight Waters EGFR-AF PALAUAN >60 Normal >=60 [facility] Comment on above: Performed By: #### U RTPCR #### [facility] [address] [place] [address] Dr. Dwight Waters EGFR-NON AF PALAUAN >60 Normal >=60 [facility] Comment on above: Performed By: #### U RTPCR #### [facility] [address] [place] [address] Dr. Dwight Waters Glucose [Mass/Vol] 106 mg/dL Normal 74-106 [facility] Comment on above: Performed By: #### U RTPCR #### [facility] [address] [place] [address] Dr. Dwight Waters Phosphate [Mass/Vol] 2.8 mg/dL Normal 2.6-4.7 [facility] Comment on above: Performed By: #### U RTPCR #### [facility] [address] [place] [address] Dr. Dwight Waters Potassium [Moles/Vol] 4.1 mmol/L Normal 3.5-5.1 [facility] Comment on above: Performed By: #### U RTPCR #### [facility] [address] [place] [address] Dr. Dwight Waters Sodium [Moles/Vol] 143 mmol/L Normal 136-145 [facility] Comment on above: Performed By: #### U RTPCR #### [facility] [address] [place] [address] Dr. Dwight Waters Urea nitrogen [Mass/Vol] 12.0 mg/dL Normal 7.0-18.0 [facility] Comment on above: Performed By: #### U RTPCR #### [facility] [address] [place] [address] Dr. Dwight OLVERAOToamanda 11-04-2022 AST [Catalytic activity/Vol] 19 U/L Normal 15-37 [facility] Comment on above: Performed By: #### U RTPCR #### [facility] [address] [place] [address] Dr. Dwight OLVERAPTon 11-04-2022 ALT [Catalytic activity/Vol] 28 U/L Normal 16-63 [facility] Comment on above: Performed By: #### U RTPCR #### [facility] [address] [address] [address] Dwight Waters URINE T PROTEIN CREAT RATIOo n 11-04-2022 Protein (U) [Mass/Vol] 10.7 mg/dL Normal <=12.0 [facility] Comment on above: Performed By: #### U RTPCR #### [facility] [address] [place] [address] Dr. Dwight Waters UR PROT CREAT RAT 0.[address] [facility] Comment on above: Performed By: #### U RTPCR #### [facility] [address] [place] [address] Dr. Dwight Waters URINE CREAT 84.50 mg/dL Normal 20.00-300.00 [facility] Comment on above: Performed By: #### U RTPCR #### [facility] [address] [place] [address] Dr. Dwight Waters FK506 (TACROLIMUS) WHOLE BLO ODon 09-18-2022 Tacrolimus (FK506), Blood 4.6 ng/mL Normal 2.0-20.0 [facility] Comment on above: Result Comment: Trou gh (immediately following transplant) 15.0 . Trough (steady state, 2 weeks or more after transplant): 3.0 - 8.0 . Performed by LC-MS/MS technology. Performed By: #### U RTPCR #### [facility] [address] [place] [address] Dr. Dwight Waters BK VIRUS PCR QUANTon 022 BKV DNA QUANT PCR PLASMA Negative Normal Negative [facility] Comment on above: Result Comment: No B K DNA detected. . The linear range of the assay is 22 - 100,000,000 IU/mL. Performed By: #### U RTPCR #### [facility] [address] [place] [address] Dr. Dwight Waters Log10 BKV DNA Plasma Normal [facility] Comment on above: Performed By: #### U RTPCR #### [facility] [address] [place] [address] Dr. Dwight Waters ALKALINE PHOSPHAon 2 ALP [Catalytic activity/Vol] 92 U/L Normal 46-116 [facility] Comment on above: Performed By: #### U RTPCR #### [facility] [address] [place] [address] Dr. Dwight Waters BILIRUBIN CONJUGATED (DIRECT )on 09-15-2022 BILI, CONJUGATED 0.3 mg/dL Critically high 0.0-0.2 [facility] Comment on above: Performed By: #### U RTPCR #### [facility] [address] [place] [address] Dr. Dwight Waters BILIRUBIN TOTALon 09-15-2022 Bilirubin [Mass/Vol] 1.1 mg/dL Critically high 0.2-1.0 [facility] Comment on above: Performed By: #### U RTPCR #### [facility] [address] [place] [address] Dr. Dwight Waters CBC AUTO DIFFon 09-15-2022 BASO # 0.1 103/ul Normal 0.0-0.1 [facility] Comment on above: Performed By: #### C BC #### [facility] [address] [place] [address] Dr. Dwight Waters Basophils/100 WBC (Bld) 0.8 % Normal 0.2-2.0 [facility] Comment on above: Performed By: #### C BC #### [facility] [address] [place] [address] Dr. wDight Waters EO # 0.2 103/ul Normal 0.0-0.7 [facility] Comment on above: Performed By: #### C BC #### [facility] [address] [place] [address] Dr. Dwight Waters Eosinophils/100 WBC (Bld) 3.5 % Normal 0.9-7.0 [facility] Comment on above: Performed By: #### C BC #### [facility] [address] [place] [address] Dr. Dwight Waters Erythrocyte distribution width (RBC) [Ratio] 13.0 % Normal 11.0-15.0 [facility] Comment on above: Performed By: #### C BC #### [facility] [address] [place] [address] Dr. Dwight Waters Hematocrit (Bld) [Volume fraction] 50.0 % Normal 42.0-54.0 [facility] Comment on above: Performed By: #### C BC #### [facility] [address] [place] [address] Dr. Dwight Waters Hemoglobin (Bld) [Mass/Vol] 16.0 g/dL Normal 14.0-18.0 [facility] Comment on above: Performed By: #### C BC #### [facility] [address] [place] [address] Dr. Dwight Waters IG # 0.02 10e3/ul Normal 0.00-0.03 [facility] Comment on above: Performed By: #### C BC #### [facility] [address] [place] [address] Dr. Dwight Waters IG % 0.3 % Normal 0.0-0.5 [facility] Comment on above: Performed By: #### C BC #### [facility] [address] [place] [address] Dr. Dwight Waters LYMPH # 1.8 103/ul Normal 1.2-3.8 [facility] Comment on above: Performed By: #### C BC #### [facility] [address] [place] [address] Dr. Dwight Waters Lymphocytes/100 WBC (Bld) 26.5 % Normal 20.5-60.0 [facility] Comment on above: Performed By: #### C BC #### [facility] [address] [place] [address] Dr. Dwight Waters MANUAL DIFF REQ NO Normal [facility] Comment on above: Performed By: #### C BC #### [facility] [address] [place] [address] Dr. Dwight Waters MCH (RBC) [Entitic mass] 28.1 pg Normal 25.9-34.0 [facility] Comment on above: Performed By: #### C BC #### [facility] [address] [place] [address] Dr. Dwight Waters MCHC (RBC) [Mass/Vol] 32.0 g/dL Normal 29.9-35.2 [facility] Comment on above: Performed By: #### C BC #### [facility] [address] [place] [address] Dr. Dwight Waters MCV (RBC) [Entitic vol] 87.9 fL Normal 80.0-94.0 [facility] Comment on above: Performed By: #### C BC #### [facility] [address] [address] [address] Dwight Waters MONO # 0.5 103/ul Normal 0.3-0.8 [facility] Comment on above: Performed By: #### C BC #### [facility] [address] [place] [address] Dr. Dwight Waters Monocytes/100 WBC (Bld) 8.1 % Normal 1.7-12.0 [facility] Comment on above: Performed By: #### C BC #### [facility] [address] [place] [address] Dr. Dwight Waters NEUT # 4.0 103/ul Normal 1.4-6.5 [facility] Comment on above: Performed By: #### C BC #### [facility] [address] [place] [address] Dr. Dwight Waters Neutrophils/100 WBC (Bld) 60.8 % Normal 43.0-75.0 [facility] Comment on above: Performed By: #### C BC #### [facility] [address] [place] [address] Dr. Dwight Waters Platelet mean volume (Bld) [Entitic vol] 9.4 fL Critically low 9.5-13.5 [facility] Comment on above: Performed By: #### C BC #### [facility] [address] [place] [address] Dr. Dwight Waters PLT 265 103/ul Normal 150-450 [facility] Comment on above: Performed By: #### C BC #### [facility] [address] [place] [address] Dr. Dwight Waters RBC 5.69 106/ul Normal 4.70-6.10 [facility] Comment on above: Performed By: #### C BC #### [facility] [address] [place] [address] Dr. Dwight Waters WBC 6.6 103/ul Normal 4.0-11.0 [facility] Comment on above: Performed By: #### C BC #### [facility] [address] [place] [address] Dr. Dwight Waters GGTon 09-15-2022 Gamma glutamyl transferase [Catalytic activity/Vol] 23 U/L Normal 15-85 [facility] Comment on above: Performed By: #### U RTPCR #### [facility] [address] [place] [address] Dr. Dwight Waters MAGNESIUMon 09-15-2022 Magnesium [Mass/Vol] 1.8 mg/dL Normal 1.8-2.4 [facility] Comment on above: Performed By: #### U RTPCR #### [facility] [address] [place] [address] Dr. Dwight Waters RENAL FUNCTION PANELon 09-15 Albumin [Mass/Vol] 4.1 g/dL Normal 3.4-5.0 [facility] Comment on above: Performed By: #### C BC #### [facility] [address] [place] [address] Dr. Dwight Waters Calcium [Mass/Vol] 9.3 mg/dL Normal 8.5-10.1 [facility] Comment on above: Performed By: #### C BC #### [facility] [address] [place] [address] Dr. Dwight Waters Chloride [Moles/Vol] 107 mmol/L Normal 98-107 [facility] Comment on above: Performed By: #### C BC #### [facility] [address] [place] [address] Dr. Dwight Waters CO2 [Moles/Vol] 25.6 mmol/L Normal 21.0-32.0 [facility] Comment on above: Performed By: #### C BC #### [facility] [address] [place] [address] Dr. Dwight Waters Creatinine [Mass/Vol] 1.01 mg/dL Normal 0.70-1.30 [facility] Comment on above: Performed By: #### C BC #### [facility] [address] [place] [address] Dr. Dwight Waters EGFR-AF PALAUAN >60 Normal >=60 [facility] Comment on above: Performed By: #### C BC #### [facility] [address] [place] [address] Dr. Dwight Waters EGFR-NON AF PALAUAN >60 Normal >=60 [facility] Comment on above: Performed By: #### C BC #### [facility] [address] [place] [address] Dr. Dwight Waters Glucose [Mass/Vol] 119 mg/dL Critically high 74-106 [facility] Comment on above: Performed By: #### C BC #### [facility] [address] [place] [address] Dr. Dwight Waters Phosphate [Mass/Vol] 2.8 mg/dL Normal 2.6-4.7 [facility] Comment on above: Performed By: #### C BC #### [facility] [address] [place] [address] Dr. Dwight Waters Potassium [Moles/Vol] 4.0 mmol/L Normal 3.5-5.1 [facility] Comment on above: Performed By: #### C BC #### [facility] [address] [place] [address] Dr. Dwight Waters Sodium [Moles/Vol] 141 mmol/L Normal 136-145 [facility] Comment on above: Performed By: #### C BC #### [facility] [address] [place] [address] Dr. Dwight Waters Urea nitrogen [Mass/Vol] 15.0 mg/dL Normal 7.0-18.0 [facility] Comment on above: Performed By: #### C BC #### [facility] [address] [place] [address] Dr. Dwight Waters SGLashondan 09-15-2022 AST [Catalytic activity/Vol] 18 U/L Normal 15-37 [facility] Comment on above: Performed By: #### U RTPCR #### [facility] [address] [place] [address] Dr. Dwight Waters SGPTon 09-15-2022 ALT [Catalytic activity/Vol] 32 U/L Normal 16-63 [facility] Comment on above: Performed By: #### C BC #### [facility] [address] [place] [address] Dr. Dwight Waters URINE T PROTEIN CREAT RATIOo n 09-15-2022 Protein (U) [Mass/Vol] 14.1 mg/dL Critically high <=12.0 [facility] Comment on above: Performed By: #### U RTPCR #### [facility] [address] [place] [address] Dr. Dwight Waters UR PROT CREAT RAT 0.[address] [facility] Comment on above: Performed By: #### U RTPCR #### [facility] [address] [place] [address] Dr. Dwight Waters URINE CREAT 98.89 mg/dL Normal 20.00-300.00 [facility] Comment on above: Performed By: #### U RTPCR #### [facility] [address] [place] [address] Dr. Dwight Waters US CAROTID ART BILon [...] MÓNICA JIMENEZ Date: 2022-08-28 13:20 Normal [facility] FK506 (TACROLIMUS) WHOLE BLO ODon 08-17-2022 Tacrolimus (FK506), Blood 9.9 ng/mL Normal 2.0-20.0 [facility] Comment on above: Result Comment: Trou gh (immediately following transplant) 15.0 . Trough (steady state, 2 weeks or more after transplant): 3.0 - 8.0 . Performed by LC-MS/MS technology. Performed By: #### F [id number] #### [facility] [address] [place] [address] Dr. Dwight Waters BK VIRUS PCR QUANTon 022 BKV DNA QUANT PCR PLASMA Negative Normal Negative [facility] Comment on above: Result Comment: No B K DNA detected. . The linear range of the assay is 22 - 100,000,000 IU/mL. Performed By: #### U RTPCR #### [facility] [address] [place] [address] Dr. Dwight Waters Log10 BKV DNA Plasma Normal [facility] Comment on above: Performed By: #### U RTPCR #### [facility] [address] [place] [address] Dr. Dwight Waters ALBUMINon 08-14-2022 Albumin [Mass/Vol] 4.2 g/dL Normal 3.4-5.0 [facility] Comment on above: Performed By: #### F [id number] #### [facility] [address] [place] [address] Dr. Dwight Waters ALKALINE PHOSPHAon ALP [Catalytic activity/Vol] 92 U/L Normal 46-116 [facility] Comment on above: Performed By: #### C BC #### [facility] [address] [place] [address] Dr. Dwight Waters BILIRUBIN CONJUGATED (DIRECT )on 08-14-2022 BILI, CONJUGATED 0.3 mg/dL Critically high 0.0-0.2 [facility] Comment on above: Performed By: #### F [id number] #### [facility] [address] [place] [address] Dr. Dwight Waters BILIRUBIN TOTALon 08-14-2022 Bilirubin [Mass/Vol] 1.5 mg/dL Critically high 0.2-1.0 [facility] Comment on above: Performed By: #### F [id number] #### [facility] [address] [place] [address] Dr. Dwight Waters BUNon 08-14-2022 Urea nitrogen [Mass/Vol] 11.0 mg/dL Normal 7.0-18.0 [facility] Comment on above: Performed By: #### C BC #### [facility] [address] [place] [address] Dr. Dwight Waters CALCIUMon 08-14-2022 Calcium [Mass/Vol] 9.4 mg/dL Normal 8.5-10.1 [facility] Comment on above: Performed By: #### F [id number] #### [facility] [address] [place] [address] Dr. Dwight Waters CBC AUTO DIFFon 08-14-2022 BASO # 0.0 103/ul Normal 0.0-0.1 [facility] Comment on above: Performed By: #### C MP #### [facility] [address] [place] [address] Dr. Dwight Waters Basophils/100 WBC (Bld) 0.5 % Normal 0.2-2.0 [facility] Comment on above: Performed By: #### C MP #### [facility] [address] [place] [address] Dr. Dwight Waters EO # 0.2 103/ul Normal 0.0-0.7 [facility] Comment on above: Performed By: #### C MP #### [facility] [address] [place] [address] Dr. Dwight Waters Eosinophils/100 WBC (Bld) 2.6 % Normal 0.9-7.0 [facility] Comment on above: Performed By: #### C MP #### [facility] [address] [place] [address] Dr. Dwight Waters Erythrocyte distribution width (RBC) [Ratio] 13.1 % Normal 11.0-15.0 [facility] Comment on above: Performed By: #### C MP #### [facility] [address] [place] [address] Dr. Dwight Waters Hematocrit (Bld) [Volume fraction] 47.0 % Normal 42.0-54.0 [facility] Comment on above: Performed By: #### C MP #### [facility] [address] [place] [address] Dr. Dwight Waters Hemoglobin (Bld) [Mass/Vol] 15.3 g/dL Normal 14.0-18.0 [facility] Comment on above: Performed By: #### C MP #### [facility] [address] [place] [address] Dr. Dwight Waters IG # 0.01 10e3/ul Normal 0.00-0.03 [facility] Comment on above: Performed By: #### C MP #### [facility] [address] [place] [address] Dr. Dwight Waters IG % 0.1 % Normal 0.0-0.5 [facility] Comment on above: Performed By: #### C MP #### [facility] [address] [place] [address] Dr. Dwight Waters LYMPH # 2.3 103/ul Normal 1.2-3.8 [facility] Comment on above: Performed By: #### C MP #### [facility] [address] [place] [address] Dr. Dwight Waters Lymphocytes/100 WBC (Bld) 29.8 % Normal 20.5-60.0 [facility] Comment on above: Performed By: #### C MP #### [facility] [address] [place] [address] Dr. Dwight Waters MANUAL DIFF REQ NO Normal [facility] Comment on above: Performed By: #### C MP #### [facility] [address] [place] [address] Dr. Dwight Waters MCH (RBC) [Entitic mass] 28.2 pg Normal 25.9-34.0 [facility] Comment on above: Performed By: #### C MP #### [facility] [address] [place] [address] Dr. Dwight Waters MCHC (RBC) [Mass/Vol] 32.6 g/dL Normal 29.9-35.2 [facility] Comment on above: Performed By: #### C MP #### [facility] [address] [id number] Dwight Waters MCV (RBC) [Entitic vol] 86.7 fL Normal 80.0-94.0 [facility] Comment on above: Performed By: #### C MP #### [facility] [address] [address] [address] Dwight Waters MONO # 0.7 103/ul Normal 0.3-0.8 [facility] Comment on above: Performed By: #### C MP #### [facility] [address] [place] [address] Dr. Dwight Waters Monocytes/100 WBC (Bld) 8.5 % Normal 1.7-12.0 [facility] Comment on above: Performed By: #### C MP #### [facility] [address] [place] [address] Dr. Dwight Waters NEUT # 4.5 103/ul Normal 1.4-6.5 [facility] Comment on above: Performed By: #### C MP #### [facility] [address] [place] [address] Dr. Dwight Waters Neutrophils/100 WBC (Bld) 58.5 % Normal 43.0-75.0 [facility] Comment on above: Performed By: #### C MP #### [facility] [address] [place] [address] Dr. Dwight Waters Platelet mean volume (Bld) [Entitic vol] 9.7 fL Normal 9.5-13.5 [facility] Comment on above: Performed By: #### C MP #### [facility] [address] [place] [address] Dr. Dwight Waters PLT 266 103/ul Normal 150-450 [facility] Comment on above: Performed By: #### C MP #### [facility] [address] [place] [address] Dr. Dwight Waters RBC 5.42 106/ul Normal 4.70-6.10 [facility] Comment on above: Performed By: #### C MP #### [facility] [address] [place] [address] Dr. Dwight Waters WBC 7.6 103/ul Normal 4.0-11.0 [facility] Comment on above: Performed By: #### C MP #### [facility] [address] [place] [address] Dr. Dwight Waters CHLORIDEon 08-14-2022 Chloride [Moles/Vol] 104 mmol/L Normal 98-107 [facility] Comment on above: Performed By: #### C BC #### [facility] [address] [place] [address] Dr. Dwight Waters CO2on 08-14-2022 CO2 [Moles/Vol] 27.9 mmol/L Normal 21.0-32.0 [facility] Comment on above: Performed By: #### C BC #### [facility] [address] [place] [address] Dr. Dwight Waters CREATININEon 08-14-2022 Creatinine [Mass/Vol] 1.08 mg/dL Normal 0.70-1.30 [facility] Comment on above: Performed By: #### C BC #### [facility] [address] [place] [address] Dr. Dwight Waters EGFR-AF PALAUAN >60 Normal >=60 [facility] Comment on above: Performed By: #### C BC #### [facility] [address] [place] [address] Dr. Dwight Waters EGFR-NON AF PALAUAN >60 Normal >=60 [facility] Comment on above: Performed By: #### C BC #### [facility] [address] [place] [address] Dr. Dwight Waters GGTon 08-14-2022 Gamma glutamyl transferase [Catalytic activity/Vol] 24 U/L Normal 15-85 [facility] Comment on above: Performed By: #### F [id number] #### [facility] [address] [place] [address] Dr. Dwight aWters GLUCOSE BLOODon 08-14-2022 Glucose [Mass/Vol] 111 mg/dL Critically high 74-106 T [facility] Comment on above: Performed By: #### C BC #### [facility] [address] [place] [address] Dr. Dwight Waters MAGNESIUMon 08-14-2022 Magnesium [Mass/Vol] 1.4 mg/dL Critically low 1.8-2.4 [facility] [facility] Comment on above: Performed By: #### C BC #### [facility] [address] [place] [address] Dr. Dwight Waters NAon 08-14-2022 Sodium [Moles/Vol] 140 mmol/L Normal 136-145 [facility] Comment on above: Performed By: #### F [id number] #### [facility] [address] [place] [address] Dr. Dwight Waters PHOSPHORUSon 08-14-2022 Phosphate [Mass/Vol] 3.1 mg/dL Normal 2.6-4.7 [facility] Comment on above: Performed By: #### C BC #### [facility] [address] [place] [address] Dr. Dwight Waters POTASSIUMon 08-14-2022 Potassium [Moles/Vol] 3.5 mmol/L Normal 3.5-5.1 [facility] Comment on above: Performed By: #### C BC #### [facility] [address] [place] [address] Dr. Dwight Albert 08-14-2022 AST [Catalytic activity/Vol] 17 U/L Normal 15-37 [facility] Comment on above: Performed By: #### F [id number] #### [facility] [address] [place] [address] Dr. Dwight Waters SGPTon 08-14-2022 ALT [Catalytic activity/Vol] 22 U/L Normal 16-63 [facility] Comment on above: Performed By: #### F [id number] #### [facility] [address] [place] [address] Dr. Dwight Waters URINE T PROTEIN CREAT RATIOo n 08-14-2022 Protein (U) [Mass/Vol] 10.7 mg/dL Normal <=12.0 [facility] Comment on above: Performed By: #### F [id number] #### [facility] [address] [place] [address] Dr. Dwight Waters UR PROT CREAT RAT 0.[address] [facility] Comment on above: Performed By: #### F [id number] #### [facility] [address] [address] [address] Dwight Waters URINE CREAT 104.28 mg/dL Normal 20.00-300.00 [facility] Comment on above: Performed By: #### F [id number] #### [facility] [address] [place], [place] [id number] Dr. Dwight Waters NEPHROSTOMY TUBE REMOVALon 0 [...] for entire procedure: yes U [facility] Radiology Study observation (narrative) [facility] FK506 (TACROLIMUS) WHOLE BLO ODon 07-06-2022 Tacrolimus (FK506), Blood 9.5 ng/mL Normal 2.0-20.0 [facility] Comment on above: Result Comment: Trou gh (immediately following transplant) 15.0 . Trough (steady state, 2 weeks or more after transplant): 3.0 - 8.0 . Performed by LC-MS/MS technology. Performed By: #### C MP #### [facility] [address] [place] [address] Dr. Dwight Waters ALBUMINon 07-03-2022 Albumin [Mass/Vol] 3.7 g/dL Normal 3.4-5.0 [facility] Comment on above: Performed By: #### U RTPCR #### [facility] [address] [place] [address] Dr. Dwight Waters ALKALINE PHOSPHAon ALP [Catalytic activity/Vol] 76 U/L Normal 46-116 [facility] Comment on above: Performed By: #### U RTPCR #### [facility] [address] [place] [address] Dr. Dwight Waters BILIRUBIN CONJUGATED (DIRECT )on 07-03-2022 BILI, CONJUGATED 0.3 mg/dL Critically high 0.0-0.2 [facility] Comment on above: Performed By: #### C BC #### [facility] [address] [place] [address] Dr. Dwight Waters BILIRUBIN TOTALon 07-03-2022 Bilirubin [Mass/Vol] 1.4 mg/dL Critically high 0.2-1.0 [facility] Comment on above: Performed By: #### C BC #### [facility] [address] [place] [address] Dr. Dwight Waters BUNon 07-03-2022 Urea nitrogen [Mass/Vol] 15.0 mg/dL Normal 7.0-18.0 [facility] Comment on above: Performed By: #### C BC #### [facility] [address] [place] [address] Dr. Dwight Waters CALCIUMon 07-03-2022 Calcium [Mass/Vol] 9.4 mg/dL Normal 8.5-10.1 [facility] Comment on above: Performed By: #### U RTPCR #### [facility] [address] [address] [address] Dwight Waters CBC AUTO DIFFon 07-03-2022 BASO # 0.0 103/ul Normal 0.0-0.1 [facility] Comment on above: Performed By: #### U RTPCR #### [facility] [address] [place] [address] Dr. Dwight Waters Basophils/100 WBC (Bld) 0.6 % Normal 0.2-2.0 [facility] Comment on above: Performed By: #### U RTPCR #### [facility] [address] [place] [address] Dr. Dwight Waters EO # 0.2 103/ul Normal 0.0-0.7 [facility] Comment on above: Performed By: #### U RTPCR #### [facility] [address] [place] [address] Dr. Dwight Waters Eosinophils/100 WBC (Bld) 3.5 % Normal 0.9-7.0 [facility] Comment on above: Performed By: #### U RTPCR #### [facility] [address] [place] [address] Dr. Dwight Waters Erythrocyte distribution width (RBC) [Ratio] 12.9 % Normal 11.0-15.0 [facility] Comment on above: Performed By: #### U RTPCR #### [facility] [address] [place] [address] Dr. Dwight Waters Hematocrit (Bld) [Volume fraction] 44.2 % Normal 42.0-54.0 [facility] Comment on above: Performed By: #### U RTPCR #### [facility] [address] [place] [address] Dr. Dwight Waters Hemoglobin (Bld) [Mass/Vol] 14.6 g/dL Normal 14.0-18.0 [facility] Comment on above: Performed By: #### U RTPCR #### [facility] [address] [place] [address] Dr. Dwight Waters IG # 0.02 10e3/ul Normal 0.00-0.03 [facility] Comment on above: Performed By: #### U RTPCR #### [facility] [address] [place] [address] Dr. Dwight Waters IG % 0.3 % Normal 0.0-0.5 [facility] Comment on above: Performed By: #### U RTPCR #### [facility] [address] [place] [address] Dr. Dwight Waters LYMPH # 2.0 103/ul Normal 1.2-3.8 [facility] Comment on above: Performed By: #### U RTPCR #### [facility] [address] [place] [address] Dr. Dwight Waters Lymphocytes/100 WBC (Bld) 28.4 % Normal 20.5-60.0 [facility] Comment on above: Performed By: #### U RTPCR #### [facility] [address] [place] [address] Dr. Dwight Waters MANUAL DIFF REQ NO Normal [facility] Comment on above: Performed By: #### U RTPCR #### [facility] [address] [place] [address] Dr. Dwight Waters MCH (RBC) [Entitic mass] 28.6 pg Normal 25.9-34.0 [facility] Comment on above: Performed By: #### U RTPCR #### [facility] [address] [place] [address] Dr. Dwight Waters MCHC (RBC) [Mass/Vol] 33.0 g/dL Normal 29.9-35.2 [facility] Comment on above: Performed By: #### U RTPCR #### [facility] [address] [place] [address] Dr. Dwight Waters MCV (RBC) [Entitic vol] 86.7 fL Normal 80.0-94.0 [facility] Comment on above: Performed By: #### U RTPCR #### [facility] [address] [place] [address] Dr. Dwight Waters MONO # 0.6 103/ul Normal 0.3-0.8 [facility] Comment on above: Performed By: #### U RTPCR #### [facility] [address] [address] [address] Dwight Waters Monocytes/100 WBC (Bld) 9.1 % Normal 1.7-12.0 [facility] Comment on above: Performed By: #### U RTPCR #### [facility] [address] [place] [address] Dr. Dwight Waters NEUT # 4.0 103/ul Normal 1.4-6.5 [facility] Comment on above: Performed By: #### U RTPCR #### [facility] [address] [place] [address] Dr. Dwight Waters Neutrophils/100 WBC (Bld) 58.1 % Normal 43.0-75.0 [facility] Comment on above: Performed By: #### U RTPCR #### [facility] [address] [place] [address] Dr. Dwight Waters Platelet mean volume (Bld) [Entitic vol] 9.5 fL Normal 9.5-13.5 [facility] Comment on above: Performed By: #### U RTPCR #### [facility] [address] [place] [address] Dr. Dwight Waters PLT 292 103/ul Normal 150-450 [facility] Comment on above: Performed By: #### U RTPCR #### [facility] [address] [place] [address] Dr. Dwight Waters RBC 5.10 106/ul Normal 4.70-6.10 [facility] Comment on above: Performed By: #### U RTPCR #### [facility] [address] [place] [address] Dr. Dwight Waters WBC 6.9 103/ul Normal 4.0-11.0 [facility] Comment on above: Performed By: #### U RTPCR #### [facility] [address] [place] [address] Dr. Dwight Waters CHLORIDEon 07-03-2022 Chloride [Moles/Vol] 108 mmol/L Critically high 98-107 [facility] Comment on above: Performed By: #### C BC #### [facility] [address] [place] [address] Dr. Dwight Waters CO2on 07-03-2022 CO2 [Moles/Vol] 25.2 mmol/L Normal 21.0-32.0 [facility] Comment on above: Performed By: #### C BC #### [facility] [address] [place] [address] Dr. Dwight Waters CREATININEon 07-03-2022 Creatinine [Mass/Vol] 1.03 mg/dL Normal 0.70-1.30 [facility] Comment on above: Performed By: #### U RTPCR #### [facility] [address] [place] [address] Dr. Dwight Waters EGFR-AF PALAUAN >60 Normal >=60 [facility] Comment on above: Performed By: #### U RTPCR #### [facility] [address] [place] [address] Dr. Dwight Waters EGFR-NON AF PALAUAN >60 Normal >=60 [facility] Comment on above: Performed By: #### U RTPCR #### [facility] [address] [place] [address] Dr. Dwight Waters GGTon 07-03-2022 Gamma glutamyl transferase [Catalytic activity/Vol] 31 U/L Normal 15-85 [facility] Comment on above: Performed By: #### U RTPCR #### [facility] [address] [place] [address] Dr. Dwight Waters GLUCOSE BLOODon 07-03-2022 Glucose [Mass/Vol] 119 mg/dL Critically high 74-106 [facility] Comment on above: Performed By: #### U RTPCR #### [facility] [address] [place] [address] Dr. Dwight Waters MAGNESIUMon 07-03-2022 Magnesium [Mass/Vol] 1.4 mg/dL Critically low 1.8-2.4 [facility] Comment on above: Performed By: #### C BC #### [facility] [address] [place] [address] Dr. Dwight Waters NAon 07-03-2022 Sodium [Moles/Vol] 142 mmol/L Normal 136-145 [facility] Comment on above: Performed By: #### C MP #### [facility] [address] [place] [address] Dr. Dwight Waters PHOSPHORUSon 07-03-2022 Phosphate [Mass/Vol] 3.4 mg/dL Normal 2.6-4.7 [facility] Comment on above: Performed By: #### C BC #### [facility] [address] [place] [address] Dr. Dwight Waters POTASSIUMon 07-03-2022 Potassium [Moles/Vol] 4.1 mmol/L Normal 3.5-5.1 [facility] Comment on above: Performed By: #### C BC #### [facility] [address] [place] [address] Dr. Dwight Waters SGOTon 07-03-2022 AST [Catalytic activity/Vol] 14 U/L Critically low 15-37 [facility] Comment on above: Performed By: #### C BC #### [facility] [address] [place] [address] Dr. Dwight Waters SGPTon 07-03-2022 ALT [Catalytic activity/Vol] 25 U/L Normal 16-63 [facility] Comment on above: Performed By: #### C BC #### [facility] [address] [place] [address] Dr. Dwight Waters US KIDNEYSon 07-03-2022 US KIDNEYS Ultrasound kidneys, bilateral HISTORY: Transplant of kidney , pain in the right lower quadrant COMPARISON: None. TECHNIQUE: Transabdominal ultrasound imaging of both kidneys was performed. FINDINGS: The [place] kidneys are diffusely echogenic and atrophic with cortical thinning. The right kidney measures 8.3 x 3.5 x 4.07 m and the left measures 9.9 x 3.8 x 3.6 cm. No hydronephrosis of the [place] kidneys. There is a renal transplant in [...] stone involving the renal transplant. 2. Atrophic [place] kidneys. 3. Normal bladder. Electronically authenticated by: ARCELIA PIZARRO Date: 2022-07-03 17:22 Normal [facility] CT Abdomen and Pelvis WO con traston 06-27-2022 IMPRESSION: 1. Both [place] kidneys are atrophic with improvement in right-sided [...] Adrenals: Adrenal glands are unremarkable. Kidneys: Both [place] kidneys are atrophic. Interval improvement in right [place] kidney hydronephrosis since May 15, 2022. Status [...] Adrenals: Adrenal glands are unremarkable. Kidneys: Both [place] kidneys are atrophic. Interval improvement in right [place] kidney hydronephrosis since May 15, 2022. Status [...] aggressive osseous lesions. IMPRESSION IMPRESSION: 1. Both [place] kidneys are atrophic with improvement in right-sided hydronephrosis since May 15, 2022. 2. 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 No hydronephrosis. No discrete perinephric collection. 3. Partially imaged postsurgical changes related to prior liver transplant. 4. The bladder is decompressed, limiting evaluation. [facility] Radiology Study observation (narrative) [facility] CT Abdomen and Pelvis WO con trastOrdered By: Gera Lu on 06-27-2022 [facility] Work Phone: CBC AUTO DIFFon 06-18-2022 BASO # 0.0 103/ul Normal 0.0-0.1 [facility] Comment on above: Performed By: #### U RTPCR #### [facility] [address] [place] [address] Dr. Dwight Waters Basophils/100 WBC (Bld) 0.5 % Normal 0.2-2.0 [facility] Comment on above: Performed By: #### U RTPCR #### [facility] [address] [place] [address] Dr. Dwight Waters EO # 0.2 103/ul Normal 0.0-0.7 [facility] Comment on above: Performed By: #### U RTPCR #### [facility] [address] [address] [address] Dwight Waters Eosinophils/100 WBC (Bld) 2.3 % Normal 0.9-7.0 [facility] Comment on above: Performed By: #### U RTPCR #### [facility] [address] [address] [address] Dwight Waters Erythrocyte distribution width (RBC) [Ratio] 12.9 % Normal 11.0-15.0 [facility] Comment on above: Performed By: #### U RTPCR #### [facility] [address] [place] [address] Dr. Dwight Waters Hematocrit (Bld) [Volume fraction] 41.2 % Critically low 42.0-54.0 [facility] Comment on above: Performed By: #### U RTPCR #### [facility] [address] [place] [address] Dr. Dwight Waters Hemoglobin (Bld) [Mass/Vol] 13.3 g/dL Critically low 14.0-18.0 [facility] Comment on above: Performed By: #### U RTPCR #### [facility] [address] [place] [address] Dr. Dwight Waters IG # 0.04 10e3/ul Critically high 0.00-0.03 [facility] Comment on above: Performed By: #### U RTPCR #### [facility] [address] [place] [address] Dr. Dwight Waters IG % 0.5 % Normal 0.0-0.5 [facility] Comment on above: Performed By: #### U RTPCR #### [facility] [address] [place] [address] Dr. Dwight Waters LYMPH # 2.0 103/ul Normal 1.2-3.8 [facility] Comment on above: Performed By: #### U RTPCR #### [facility] [address] [place] [address] Dr. Dwight Waters Lymphocytes/100 WBC (Bld) 22.9 % Normal 20.5-60.0 [facility] Comment on above: Performed By: #### U RTPCR #### [facility] [address] [place] [address] Dr. Dwight Waters MANUAL DIFF REQ NO Normal [facility] Comment on above: Performed By: #### U RTPCR #### [facility] [address] [place] [address] Dr. Dwight Waters MCH (RBC) [Entitic mass] 28.7 pg Normal 25.9-34.0 [facility] Comment on above: Performed By: #### U RTPCR #### [facility] [address] [place] [address] Dr. Dwight Waters MCHC (RBC) [Mass/Vol] 32.3 g/dL Normal 29.9-35.2 [facility] Comment on above: Performed By: #### U RTPCR #### [facility] [address] [place] [address] Dr. Dwight Waters MCV (RBC) [Entitic vol] 88.8 fL Normal 80.0-94.0 [facility] Comment on above: Performed By: #### U RTPCR #### [facility] [address] [place] [address] Dr. Dwight Waters MONO # 0.8 103/ul Normal 0.3-0.8 [facility] Comment on above: Performed By: #### U RTPCR #### [facility] [address] [place] [address] Dr. Dwight Waters Monocytes/100 WBC (Bld) 9.7 % Normal 1.7-12.0 [facility] Comment on above: Performed By: #### U RTPCR #### [facility] [address] [place] [address] Dr. Dwight Waters NEUT # 5.6 103/ul Normal 1.4-6.5 [facility] Comment on above: Performed By: #### U RTPCR #### [facility] [address] [place] [address] Dr. Dwight Waters Neutrophils/100 WBC (Bld) 64.1 % Normal 43.0-75.0 [facility] Comment on above: Performed By: #### U RTPCR #### [facility] [address] [place] [address] Dr. Dwight Waters Platelet mean volume (Bld) [Entitic vol] 10.0 fL Normal 9.5-13.5 [facility] Comment on above: Performed By: #### U RTPCR #### [facility] [address] [place] [address] Dr. Dwight Waters PLT 270 103/ul Normal 150-450 [facility] Comment on above: Performed By: #### U RTPCR #### [facility] [address] [place] [address] Dr. Dwight Waters RBC 4.64 106/ul Critically low 4.70-6.10 [facility] Comment on above: Performed By: #### U RTPCR #### [facility] [address] [address] [address] Dwight Waters WBC 8.7 103/ul Normal 4.0-11.0 [facility] Comment on above: Performed By: #### U RTPCR #### [facility] [address] [address] [address] Dwight Waters CULTURE URINEon 06-18-2022 CULTURE URINE Culture Observations : NO GROWTH. Normal [facility] Comment on above: Performed By: #### U RTPCR #### [facility] [address] [place] [address] Dr. Dwight Waters Covid-19 PCR ([facility])on 05-31 SARS-CoV-2 (COVID-19) RNA ESTELITA+probe Ql (Unsp spec) Not detected Normal NOT DETECTED [facility] Comment on above: Result Comment: When [...] for this test is supported by the [place] of [employer] and Human Service's declaration that [...] used). Performed By: #### C BC #### [facility] [address] [place] [address] Dr. Dwight Waters ER URINE PROFILEon 2 Bilirubin Ql (U) Negative Normal NEGATIVE [facility] Comment on above: Performed By: #### U RTPCR #### [facility] [address] [place] [address] Dr. Dwight Waters Clarity (U) CLEAR Normal CLEAR [facility] Comment on above: Performed By: #### U RTPCR #### [facility] [address] [address] [address] Dwight Waters Color (U) YELLOW Normal YELLOW [facility] Comment on above: Performed By: #### U RTPCR #### [facility] [address] [place] [address] Dr. Dwight Waters ERUAHD A micrscopic examina tion will be performed if indicated. Normal [facility] Comment on above: Performed By: #### U RTPCR #### [facility] [address] [place] [address] Dr. Dwight Waters Glucose Ql (U) Negative Normal NEGATIVE [facility] Comment on above: Performed By: #### U RTPCR #### [facility] [address] [place] [address] Dr. Dwight Waters Hemoglobin Ql (U) LARGE Abnormal NEGATIVE [facility] Comment on above: Performed By: #### U RTPCR #### [facility] [address] [place] [address] Dr. Dwight Waters Ketones Ql (U) Negative Normal NEGATIVE [facility] Comment on above: Performed By: #### U RTPCR #### [facility] [address] [place] [address] Dr. Dwight Waters LEUKOCYTES TRACE Abnormal NEGATIVE [facility] Comment on above: Performed By: #### U RTPCR #### [facility] [address] [place] [address] Dr. Dwight Waters Nitrite Ql (U) Negative Normal NEGATIVE [facility] Comment on above: Performed By: #### U RTPCR #### [facility] [address] [place] [address] Dr. Dwight Waters pH (U) 6.0 [pH] Normal 5-9 [facility] Comment on above: Performed By: #### U RTPCR #### [facility] [address] [place] [address] Dr. Dwight Waters Protein (U) [Mass/Vol] 30 mg/dL Abnormal NEGATIVE/ TRACE [facility] Comment on above: Performed By: #### U RTPCR #### [facility] [address] [place] [address] Dr. Dwight Waters SPEC GRAVITY >=1.030 Abnormal 1.005-<=1.[address] [facility] Comment on above: Performed By: #### U RTPCR #### [facility] [address] [place] [address] Dr. Dwight Waters UR MICRO IND INDICATED Normal [facility] Comment on above: Performed By: #### U RTPCR #### [facility] [address] [place] [address] Dr. Dwight Waters Urobilinogen Qn (U) 0.2 {Alyssa'U}/dL Normal 0.2 - 1. 0 [facility] Comment on above: Performed By: #### U RTPCR #### [facility] [address] [place] [address] Dr. Dwight Waters PROF 14(COMP METB)on 022 Albumin [Mass/Vol] 3.7 g/dL Normal 3.4-5.0 [facility] Comment on above: Performed By: #### C MP #### [facility] [address] [place] [address] Dr. Dwight Waters Albumin/Globulin [Mass ratio] 0.9 {ratio} Normal [facility] Comment on above: Performed By: #### C MP #### [facility] [address] [place] [address] Dr. Dwight Waters ALP [Catalytic activity/Vol] 80 U/L Normal 46-116 [facility] Comment on above: Performed By: #### C MP #### [facility] [address] [place] [address] Dr. Dwight Waters ALT [Catalytic activity/Vol] 24 U/L Normal 16-63 [facility] Comment on above: Performed By: #### C MP #### [facility] [address] [place] [address] Dr. Dwight Waters Anion gap [Moles/Vol] 12.9 mmol/L Normal [facility] Comment on above: Performed By: #### C MP #### [facility] [address] [address] [address] Dwight Waters AST [Catalytic activity/Vol] 17 U/L Normal 15-37 [facility] Comment on above: Performed By: #### C MP #### [facility] [address] [place] [address] Dr. Dwight Waters Bilirubin [Mass/Vol] 0.8 mg/dL Normal 0.2-1.0 [facility] Comment on above: Performed By: #### C MP #### [facility] [address] [place] [address] Dr. Dwight Waters Calcium [Mass/Vol] 9.4 mg/dL Normal 8.5-10.1 [facility] Comment on above: Performed By: #### C MP #### [facility] [address] [place] [address] Dr. Dwight Waters Chloride [Moles/Vol] 106 mmol/L Normal 98-107 [facility] Comment on above: Performed By: #### C MP #### [facility] [address] [place] [address] Dr. Dwight Waters CO2 [Moles/Vol] 25.3 mmol/L Normal 21.0-32.0 [facility] Comment on above: Performed By: #### C MP #### [facility] [address] [place] [address] Dr. Dwight Waters Creatinine [Mass/Vol] 1.29 mg/dL Normal 0.70-1.30 [facility] Comment on above: Performed By: #### C MP #### [facility] [address] [place] [address] Dr. Dwight Waters EGFR-AF PALAUAN >60 Normal >=60 [facility] Comment on above: Performed By: #### C MP #### [facility] [address] [place] [address] Dr. Dwight Waters EGFR-NON AF PALAUAN 59 mL/min/1.73m2 Critically low >=60 [facility] [facility] Comment on above: Performed By: #### C MP #### [facility] [address] [place] [address] Dr. Dwight Waters Globulin (S) [Mass/Vol] 4.2 g/dL Normal [facility] Comment on above: Performed By: #### C MP #### [facility] [address] [place] [address] Dr. Dwight Waters Glucose [Mass/Vol] 106 mg/dL Normal 74-106 [facility] Comment on above: Performed By: #### C MP #### [facility] [address] [place] [address] Dr. Dwight Waters Potassium [Moles/Vol] 4.2 mmol/L Normal 3.5-5.1 [facility] Comment on above: Performed By: #### C MP #### [facility] [address] [place] [address] Dr. Dwight Waters Protein [Mass/Vol] 7.9 g/dL Normal 6.4-8.2 [facility] Comment on above: Performed By: #### C MP #### [facility] [address] [place] [address] Dr. Dwight Waters Sodium [Moles/Vol] 140 mmol/L Normal 136-145 [facility] Comment on above: Performed By: #### C MP #### [facility] [address] [place] [address] Dr. Dwight Waters Urea nitrogen [Mass/Vol] 22.0 mg/dL Critically high 7.0-18.0 [facility] Comment on above: Performed By: #### C MP #### [facility] [address] [place] [address] Dr. Dwight Waters Urea nitrogen/Creatinine [Mass ratio] 17.1 mg/mg Normal [facility] Comment on above: Performed By: #### C MP #### [facility] [address] [place] [address] Dr. Dwight Waters URINE MICROSCOPIC ONLYon BACTERIA TRACE Abnormal NONE SEEN [facility] Comment on above: Performed By: #### U RTPCR #### [facility] [address] [place] [address] Dr. Dwight Waters Bacteria identified Cx Nom (U) INDICATED Normal [facility] Comment on above: Performed By: #### U RTPCR #### [facility] [address] [place] [address] Dr. Dwight aWters CAST NONE SEEN Normal NONE SEEN [facility] Comment on above: Performed By: #### U RTPCR #### [facility] [address] [place] [address] Dr. Dwight Waters Crystals LM Nom (Urine sed) NONE SEEN Normal NONE SEEN [facility] Comment on above: Performed By: #### U RTPCR #### [facility] [address] [place] [address] Dr. Dwight Waters Epithelial cells LM Ql (Urine sed) NONE SEEN Normal NONE SEEN /RARE [facility] Comment on above: Performed By: #### U RTPCR #### [facility] [address] [place] [address] Dr. Dwight Waters MUCOUS NONE SEEN Normal NONE SEEN [facility] Comment on above: Performed By: #### U RTPCR #### [facility] [address] [place] [address] Dr. Dwight Waters RBC 5-10 Abnormal 0-2 [facility] Comment on above: Performed By: #### U RTPCR #### [facility] [address] [place] [address] Dr. Dwight Waters WBC 10-[address] [facility] Comment on above: Performed By: #### U RTPCR #### [facility] [address] [place] [address] Dr. Dwight Waters ALLOSCREEN RECIPIENT (POST T X PRA)on 06-13-2022 AB SPECIFICITY CLASS COMMENT Antibody Specificity testing performed by [employer]. cPRA calculation based on identification of HLA antibody specificities at MFI >2000 and/or presence of CREG antibodies. [facility] Comment on above: Some of the reagents used for testing in the Clinical Histocompatibility Laboratory have yet to be approved by the FDA. Our certification by CLIA to perform high complexity tests allows us to use these reagents in the context of a stringent QC program, and obviates the need for FDA approval.Testing performed by the [facility] Clinical Histocompatibility Laboratory. [facility] number: [id number]. CLIA number: [id number], Director: Carlito Merchant, PhD, D([facility]). ANTIBODY SPECIFICITY INTERPRETATION Detected [facility] CLASS I SPECIFICITIES Not detected [facility] CLASS II SPECIFICITIES Not detected [facility] HLA Ab (S) 0 % 0 [facility] EXTRA MICROon 06-13-2022 [facility] URINE CULTUREOrdered By: Jah Upton on 06-13-2022 Bacteria identified Cx Nom (Unsp spec) Growth [facility] Bacteria identified Cx Nom (Unsp spec) 10,000-50,000 CFU/mL Mixed skin shimon [facility] Comment on above: Multiple bacterial m orphotypes present. Suggest appropriate recollection if clinically indicated. [facility] CBC,PLATELETSon 06-12-2022 Erythrocyte distribution width (RBC) [Ratio] 13.0 % 10.9 - 14.3 % [facility] Hematocrit (Bld) [Volume fraction] 43.2 % 39.6 - 48.8 % [facility] Hemoglobin (Bld) [Mass/Vol] 13.9 g/dL 13.4 - 16.8 g/dL [facility] Interpretation and review of laboratory results Normal [facility] MCH (RBC) [Entitic mass] 28.7 pg 26.1 - 33.3 pg [facility] MCHC (RBC) [Mass/Vol] 32.2 g/dL 31.9 - 36.5 g/dL [facility] MCV (RBC) [Entitic vol] 89.1 fL 79.0 - 94.5 fL [facility] Platelet mean volume (Bld) [Entitic vol] 10.5 fL 8.7 - 12.3 fL [facility] Platelets (Bld) [#/Vol] 269 10*3/uL 146 - 337 K/uL [facility] RBC (Bld) [#/Vol] 4.85 10*6/uL [facility] WBC (Bld) [#/Vol] 7.68 10*3/uL 3.73 - 10. 10 K/uL [facility] CHEM 7 (LYTES,BUN,CREA,GLUC) on 06-12-2022 Anion gap [Moles/Vol] 14 mmol/L 7 - 17 mmol/L [facility] Chloride [Moles/Vol] 106 mmol/L 98 - 10 8 mmol/L [facility] CO2 [Moles/Vol] 25 mmol/L 21 - 31 mmol/L [facility] Creatinine [Mass/Vol] 1.26 mg/dL 0.70 - 1.30 mg/dL [facility] GFR/1.73 sq M.predicted CKD-EPI (S/P/Bld) [Vol rate/Area] 69 >=60 mL/min/1.73m 2 [facility] Comment on above: Reported eGFR is bas ed on the CKD-EPI 2020 equation using creatinine, age, and sex. Glucose [Mass/Vol] 83 mg/dL 70 - 99 mg/dL [facility] Osmolality Calc [Osmolality] 295 [facility] Potassium [Moles/Vol] 3.8 mmol/L 3.5 - 5.0 mmol/L [facility] Sodium [Moles/Vol] 141 mmol/L 135 - 145 mmol/L [facility] Urea nitrogen [Mass/Vol] 18 mg/dL 7 - 25 mg/dL [facility] Urea nitrogen/Creatinine [Mass ratio] 14 mg/mg [facility] GGTon 06-12-2022 Gamma glutamyl transferase [Catalytic activity/Vol] 20 U/L 8 - 64 U/L [facility] HEMOGLOBIN [id number] By: Link Roche on 06-12-2022 Average glucose Estimated from glycated hemoglobin (Bld) [Mass/Vol] 126 mg/dL [facility] HbA1c (Bld) [Mass fraction] 6.0 % High 4.7 - 5.6 % [facility] Interpretation and review of laboratory results Abnormal [facility] HEPATIC FUNCTION PANELon Albumin [Mass/Vol] 4.3 g/dL 3.5 - 5.0 g/dL [facility] ALP [Catalytic activity/Vol] 78 U/L 32 - 126 U/L [facility] ALT [Catalytic activity/Vol] 12 U/L 10 - 52 U/L [facility] AST [Catalytic activity/Vol] 16 U/L 10 - 39 U/L [facility] Bilirubin [Mass/Vol] 1.0 mg/dL <1.5 [facility] Bilirubin.direct [Mass/Vol] 0.2 mg/dL <0.3 [facility] Protein [Mass/Vol] 7.5 g/dL 6.4 - 8.3 g/dL [facility] No Panel Informationon 06-12 Interpretation and review of laboratory results Normal [facility] PTH INTACTOrdered By: Marli Lizarraga on 06-12-2022 Interpretation and review of laboratory results Abnormal [facility] Parathyrin.intact [Mass/Vol] 79.7 pg/mL High 14.0 - 72.0 pg/mL [facility] URINALYSIS REFLEX TO CULTURE PERFORMABLEon 06-12-2022 Appearance (U) Clear Clear [facility] Bacteria LM Ql (Urine sed) ABSENT ABSENT [facility] Color (U) Yellow Yellow [facility] Epithelial cells.squamous LM Ql (Urine sed) 1/hpf = 1+ 1/hpf = 1+, 2-5/hpf = 2+, 0/hpf = 0+, ABSENT [facility] Glucose Test strip (U) [Mass/Vol] Negative Negative [facility] Interpretation and review of laboratory results Abnormal [facility] Ketones (U) [Mass/Vol] Trace Abnormal Negative [facility] Leukocyte esterase Test strip Ql (U) Small Abnormal Negative [facility] Nitrite Ql (U) Negative Negative [facility] pH (U) 5.5 [pH] 5.0 - 7.0 [facility] Protein (U) [Mass/Vol] 30 mg/dL Abnormal Negative [facility] RBC (U) [#/Vol] Trace Abnormal Negative [facility] RBC LM.HPF (Urine sed) [#/Area] 0-2 0 - 2 /HPF [facility] Specific gravity (U) [Rel density] 1.026 [facility] Urobilinogen (U) [Mass/Vol] 0.2 E.U./dL 0.2 E.U/dL, 1.0 E.U/dL [facility] WBC LM.HPF (Urine sed) [#/Area] 10-20 Abnormal 0 - 5 /HPF [facility] URINE PROTEIN/CREA RATIO, RA NDOMon 06-12-2022 Creatinine (24H U) [Mass/Vol] 231.68 mg/dL [facility] Protein Unsp time (U) [Mass/Vol] 49 mg/dL [facility] Protein/Creatinine (U) [Mass ratio] 0.211 mg/g [facility] FK506 (TACROLIMUS) WHOLE BLO ODon 06-09-2022 Tacrolimus (FK506), Blood 9.8 ng/mL Normal 2.0-20.0 [facility] Comment on above: Result Comment: Trou gh (immediately following transplant) 15.0 . Trough (steady state, 2 weeks or more after transplant): 3.0 - 8.0 . Performed by LC-MS/MS technology. Performed By: #### U RTPCR #### [facility] [address] [place] [address] Dr. Dwight Waters ALBUMINon 06-06-2022 Albumin [Mass/Vol] 3.8 g/dL Normal 3.4-5.0 [facility] Comment on above: Performed By: #### C MP #### [facility] [address] [place] [address] Dr. Dwight Waters ALKALINE PHOSPHAon ALP [Catalytic activity/Vol] 82 U/L Normal 46-116 [facility] Comment on above: Performed By: #### C MP #### [facility] [address] [place] [address] Dr. Dwight Waters BILIRUBIN CONJUGATED (DIRECT )on 06-06-2022 BILI, CONJUGATED 0.2 mg/dL Normal 0.0-0.2 [facility] Comment on above: Performed By: #### C BC #### [facility] [address] [place] [address] Dr. Dwight Waters BILIRUBIN TOTALon 06-06-2022 Bilirubin [Mass/Vol] 1.0 mg/dL Normal 0.2-1.0 [facility] Comment on above: Performed By: #### C BC #### [facility] [address] [place] [address] Dr. Dwight Waters BUNon 06-06-2022 Urea nitrogen [Mass/Vol] 18.0 mg/dL Normal 7.0-18.0 [facility] Comment on above: Performed By: #### C BC #### [facility] [address] [place] [address] Dr. Dwight Waters CALCIUMon 06-06-2022 Calcium [Mass/Vol] 9.4 mg/dL Normal 8.5-10.1 [facility] Comment on above: Performed By: #### C MP #### [facility] [address] [place] [address] Dr. Dwight Waters CBC AUTO DIFFon 06-06-2022 BASO # 0.1 103/ul Normal 0.0-0.1 [facility] Comment on above: Performed By: #### U RTPCR #### [facility] [address] [place] [address] Dr. Dwight Waters Basophils/100 WBC (Bld) 0.8 % Normal 0.2-2.0 [facility] Comment on above: Performed By: #### U RTPCR #### [facility] [address] [place] [address] Dr. Dwight Waters EO # 0.3 103/ul Normal 0.0-0.7 [facility] Comment on above: Performed By: #### U RTPCR #### [facility] [address] [place] [address] Dr. Dwight Waters Eosinophils/100 WBC (Bld) 3.3 % Normal 0.9-7.0 [facility] Comment on above: Performed By: #### U RTPCR #### [facility] [address] [place] [address] Dr. Dwight Waters Erythrocyte distribution width (RBC) [Ratio] 12.4 % Normal 11.0-15.0 [facility] Comment on above: Performed By: #### U RTPCR #### [facility] [address] [place] [address] Dr. Dwight Waters Hematocrit (Bld) [Volume fraction] 45.1 % Normal 42.0-54.0 [facility] Comment on above: Performed By: #### U RTPCR #### [facility] [address] [place] [address] Dr. Dwight Waters Hemoglobin (Bld) [Mass/Vol] 14.4 g/dL Normal 14.0-18.0 [facility] Comment on above: Performed By: #### U RTPCR #### [facility] [address] [place] [address] Dr. Dwight Waters IG # 0.01 10e3/ul Normal 0.00-0.03 [facility] Comment on above: Performed By: #### U RTPCR #### [facility] [address] [place] [address] Dr. Dwight Waters IG % 0.1 % Normal 0.0-0.5 [facility] Comment on above: Performed By: #### U RTPCR #### [facility] [address] [place] [address] Dr. Dwight Waters LYMPH # 2.2 103/ul Normal 1.2-3.8 [facility] Comment on above: Performed By: #### U RTPCR #### [facility] [address] [place] [address] Dr. Dwight Waters Lymphocytes/100 WBC (Bld) 30.0 % Normal 20.5-60.0 [facility] Comment on above: Performed By: #### U RTPCR #### [facility] [address] [place] [address] Dr. Dwight Waters MANUAL DIFF REQ NO Normal [facility] Comment on above: Performed By: #### U RTPCR #### [facility] [address] [place] [address] Dr. Dwight Waters MCH (RBC) [Entitic mass] 28.2 pg Normal 25.9-34.0 [facility] Comment on above: Performed By: #### U RTPCR #### [facility] [address] [place] [address] Dr. Dwight Waters MCHC (RBC) [Mass/Vol] 31.9 g/dL Normal 29.9-35.2 [facility] Comment on above: Performed By: #### U RTPCR #### [facility] [address] [place] [address] Dr. Dwight Waters MCV (RBC) [Entitic vol] 88.3 fL Normal 80.0-94.0 [facility] Comment on above: Performed By: #### U RTPCR #### [facility] [address] [place] [address] Dr. Dwight Waters MONO # 0.6 103/ul Normal 0.3-0.8 [facility] Comment on above: Performed By: #### U RTPCR #### [facility] [address] [place] [address] Dr. Dwight Waters Monocytes/100 WBC (Bld) 8.2 % Normal 1.7-12.0 [facility] Comment on above: Performed By: #### U RTPCR #### [facility] [address] [place] [address] Dr. Dwight Waters NEUT # 4.3 103/ul Normal 1.4-6.5 [facility] Comment on above: Performed By: #### U RTPCR #### [facility] [address] [place] [address] Dr. Dwight Waters Neutrophils/100 WBC (Bld) 57.6 % Normal 43.0-75.0 [facility] Comment on above: Performed By: #### U RTPCR #### [facility] [address] [place] [address] Dr. Dwight Waters Platelet mean volume (Bld) [Entitic vol] 9.7 fL Normal 9.5-13.5 [facility] Comment on above: Performed By: #### U RTPCR #### [facility] [address] [place] [address] Dr. Dwight Waters PLT 297 103/ul Normal 150-450 [facility] Comment on above: Performed By: #### U RTPCR #### [facility] [address] [place] [address] Dr. Dwight Waters RBC 5.11 106/ul Normal 4.70-6.10 [facility] Comment on above: Performed By: #### U RTPCR #### [facility] [address] [place] [address] Dr. Dwight Waters WBC 7.5 103/ul Normal 4.0-11.0 [facility] Comment on above: Performed By: #### U RTPCR #### [facility] [address] [place] [address] Dr. Dwight Waters CHLORIDEon 06-06-2022 Chloride [Moles/Vol] 107 mmol/L Normal 98-107 [facility] Comment on above: Performed By: #### C BC #### [facility] [address] [place] [address] Dr. Dwight Waters CO2on 06-06-2022 CO2 [Moles/Vol] 27.4 mmol/L Normal 21.0-32.0 [facility] Comment on above: Performed By: #### C BC #### [facility] [address] [place] [address] Dr. Dwight Waters CREATININEon 06-06-2022 Creatinine [Mass/Vol] 1.20 mg/dL Normal 0.70-1.30 [facility] Comment on above: Performed By: #### C BC #### [facility] [address] [place] [address] Dr. Dwight Waters EGFR-AF PALAUAN >60 Normal >=60 [facility] Comment on above: Performed By: #### C BC #### [facility] [address] [place] [address] Dr. Dwight Waters EGFR-NON AF PALAUAN >60 Normal >=60 [facility] Comment on above: Performed By: #### C BC #### [facility] [address] [place] [address] Dr. Dwight Waters GGTon 06-06-2022 Gamma glutamyl transferase [Catalytic activity/Vol] 29 U/L Normal 15-85 [facility] Comment on above: Performed By: #### C BC #### [facility] [address] [place] [address] Dr. Dwight Waters GLUCOSE BLOODon 06-06-2022 Glucose [Mass/Vol] 112 mg/dL Critically high 74-106 [facility] Comment on above: Performed By: #### C BC #### [facility] [address] [place] [address] Dr. Dwight Waters MAGNESIUMon 06-06-2022 Magnesium [Mass/Vol] 1.3 mg/dL Critically low 1.8-2.4 [facility] Comment on above: Performed By: #### C MP #### [facility] [address] [place] [address] Dr. Dwight Waters NAon 06-06-2022 Sodium [Moles/Vol] 141 mmol/L Normal 136-145 [facility] Comment on above: Performed By: #### C MP #### [facility] [address] [place] [address] Dr. Dwight Waters PHOSPHORUSon 06-06-2022 Phosphate [Mass/Vol] 3.1 mg/dL Normal 2.6-4.7 [facility] Comment on above: Performed By: #### C MP #### [facility] [address] [place] [address] Dr. Dwight Waters POTASSIUMon 06-06-2022 Potassium [Moles/Vol] 4.3 mmol/L Normal 3.5-5.1 [facility] Comment on above: Performed By: #### C BC #### [facility] [address] [place] [address] Dr. Dwight Waters SGOTon 06-06-2022 AST [Catalytic activity/Vol] 16 U/L Normal 15-37 [facility] Comment on above: Performed By: #### C BC #### [facility] [address] [place], [place] [address] Dr. Dwight Waters SGPTon 06-06-2022 ALT [Catalytic activity/Vol] 50 U/L Normal 16-63 [facility] Comment on above: Performed By: #### C BC #### [facility] [address] [place], [place] [address] Dr. Dwight Waters Bacteria identified Cx Nom ( Bld)on 05-21-2022 Bacteria identified Cx Nom (Unsp spec) NO GROWTH DAY 5 OF 5 [facility] Results may be compr omised due to volume of BACT\ALERT bottle exceeding 10mLs . The optimal blood volume is 8-10 mls per aerobic/anaerobic blood culture bottle. [facility] CALCIUMon 05-20-2022 Calcium [Mass/Vol] 9.1 mg/dL 8.6 - 10. 5 mg/dL [facility] CBC,PLATELETSon 05-20-2022 Erythrocyte distribution width (RBC) [Ratio] 12.5 % 10.9 - 14.3 % [facility] Hematocrit (Bld) [Volume fraction] 37.1 % Low 39.6 - 48.8 % [facility] Hemoglobin (Bld) [Mass/Vol] 12.3 g/dL Low 13.4 - 16.8 g/dL [facility] Interpretation and review of laboratory results Abnormal [facility] MCH (RBC) [Entitic mass] 28.9 pg 26.1 - 33.3 pg [facility] MCHC (RBC) [Mass/Vol] 33.2 g/dL 31.9 - 36.5 g/dL [facility] MCV (RBC) [Entitic vol] 87.3 fL 79.0 - 94.5 fL [facility] Platelet mean volume (Bld) [Entitic vol] 9.9 fL 8.7 - 12.3 fL [facility] Platelets (Bld) [#/Vol] 234 10*3/uL 146 - 337 K/uL [facility] RBC (Bld) [#/Vol] 4.25 10*6/uL Low [facility] WBC (Bld) [#/Vol] 6.31 10*3/uL 3.73 - 10. 10 K/uL [facility] CHEM 7 (LYTES,BUN,CREA,GLUC) on 05-20-2022 Anion gap [Moles/Vol] 15 mmol/L 7 - 17 mmol/L [facility] Chloride [Moles/Vol] 111 mmol/L High 98 - 10 8 mmol/L [facility] CO2 [Moles/Vol] 22 mmol/L 21 - 31 mmol/L [facility] Creatinine [Mass/Vol] 1.10 mg/dL 0.70 - 1.30 mg/dL [facility] GFR/1.73 sq M.predicted CKD-EPI (S/P/Bld) [Vol rate/Area] 81 >=60 mL/min/1.73m 2 [facility] Comment on above: Reported eGFR is bas ed on the CKD-EPI 2020 equation using creatinine, age, and sex. Glucose [Mass/Vol] 92 mg/dL 70 - 99 mg/dL [facility] Interpretation and review of laboratory results Abnormal [facility] Osmolality Calc [Osmolality] 302 [facility] Potassium [Moles/Vol] 4.4 mmol/L 3.5 - 5.0 mmol/L [facility] Sodium [Moles/Vol] 144 mmol/L 135 - 145 mmol/L [facility] Urea nitrogen [Mass/Vol] 18 mg/dL 7 - 25 mg/dL [facility] Urea nitrogen/Creatinine [Mass ratio] 16 mg/mg [facility] MAGNESIUMon 05-20-2022 Interpretation and review of laboratory results Abnormal [facility] Magnesium [Mass/Vol] 1.5 mg/dL Low 1.6 - 2 .6 mg/dL [facility] No Panel Informationon 05-20 Interpretation and review of laboratory results Normal [facility] PHOSPHATE, INORGANICon 05-20 Phosphate [Mass/Vol] 3.3 mg/dL 2.2 - 4 .6 mg/dL [facility] RF Unspecified body region V [...] projections of kidneys, ureters, and bladder. FINDINGS: Photographs Curator images: Photographs Curator radiographs of the abdomen reveal a nonobstructive [...] Contrast refluxes up the ureter to the [place] right kidney that is grossly normal appearing. [...] projections of kidneys, ureters, and bladder. FINDINGS: Photographs Curator images: Photographs Curator radiographs of the abdomen reveal a nonobstructive [...] Contrast refluxes up the ureter to the [place] right kidney that is grossly normal appearing. [...] approved this report. [facility] Radiology [facility]narrative) [facility] Unspecified body region V iews during surgeryOrdered By: Lizz Campos on 05-20-2022 [facility] Work Phone: CALCIUMon 05-19-2022 Calcium [Mass/Vol] 9.2 mg/dL 8.6 - 10. 5 mg/dL [facility] Calcium [Mass/Vol] 8.6 mg/dL 8.6 - 10. 5 mg/dL [facility] CBC,PLATELETSon 05-19-2022 Erythrocyte distribution width (RBC) [Ratio] 12.4 % 10.9 - 14.3 % [facility] Hematocrit (Bld) [Volume fraction] 38.0 % Low 39.6 - 48.8 % [facility] Hemoglobin (Bld) [Mass/Vol] 12.0 g/dL Low 13.4 - 16.8 g/dL [facility] Interpretation and review of laboratory results Abnormal [facility] MCH (RBC) [Entitic mass] 28.6 pg 26.1 - 33.3 pg [facility] MCHC (RBC) [Mass/Vol] 31.6 g/dL Low 31.9 - 36.5 g/dL [facility] MCV (RBC) [Entitic vol] 90.5 fL 79.0 - 94.5 fL [facility] Platelet mean volume (Bld) [Entitic vol] 9.7 fL 8.7 - 12.3 fL [facility] Platelets (Bld) [#/Vol] 199 10*3/uL 146 - 337 K/uL [facility] RBC (Bld) [#/Vol] 4.20 10*6/uL Low [facility] WBC (Bld) [#/Vol] 6.81 10*3/uL 3.73 - 10. 10 K/uL [facility] CHEM 7 (LYTES,BUN,CREA,GLUC) on 05-19-2022 Anion gap [Moles/Vol] 13 mmol/L 7 - 17 mmol/L [facility] Chloride [Moles/Vol] 105 mmol/L 98 - 10 8 mmol/L [facility] CO2 [Moles/Vol] 30 mmol/L 21 - 31 mmol/L [facility] Creatinine [Mass/Vol] 1.39 mg/dL High 0.70 - 1.30 mg/dL [facility] GFR/1.73 sq M.predicted CKD-EPI (S/P/Bld) [Vol rate/Area] 61 >=60 mL/min/1.73m 2 [facility] Comment on above: Reported eGFR is bas ed on the CKD-EPI 2020 equation using creatinine, age, and sex. Glucose [Mass/Vol] 121 mg/dL High 70 - 99 mg/dL [facility] Interpretation and review of laboratory results Abnormal [facility]c [facility]ality] [facility] Potassium [Moles/Vol] 3.8 mmol/L 3.5 - 5.0 mmol/L [facility] Sodium [Moles/Vol] 144 mmol/L 135 - 145 mmol/L [facility] Urea nitrogen [Mass/Vol] 18 mg/dL 7 - 25 mg/dL [facility] Urea nitrogen/Creatinine [Mass ratio] 13 mg/mg [facility] Anion gap [Moles/Vol] 15 mmol/L 7 - 17 mmol/L [facility] Chloride [Moles/Vol] 106 mmol/L 98 - 10 8 mmol/L [facility] CO2 [Moles/Vol] 24 mmol/L 21 - 31 mmol/L [facility] Creatinine [Mass/Vol] 1.46 mg/dL High 0.70 - 1.30 mg/dL [facility] GFR/1.73 sq M.predicted CKD-EPI (S/P/Bld) [Vol rate/Area] 58 Low >=60 mL/min/1.73m 2 [facility] Comment on above: Reported eGFR is bas ed on the CKD-EPI 2020 equation using creatinine, age, and sex. Glucose [Mass/Vol] 103 mg/dL High 70 - 99 mg/dL [facility] Interpretation and review of laboratory results Abnormal [facility] Calc [facility]olality] [facility] Potassium [Moles/Vol] 3.9 mmol/L 3.5 - 5.0 mmol/L [facility] Sodium [Moles/Vol] 141 mmol/L 135 - 145 mmol/L [facility] Urea nitrogen [Mass/Vol] 21 mg/dL 7 - 25 mg/dL [facility] Urea nitrogen/Creatinine [Mass ratio] 14 mg/mg [facility] MAGNESIUMon 05-19-2022 Magnesium [Mass/Vol] 2.0 mg/dL 1.6 - 2 .6 mg/dL [facility] Magnesium [Mass/Vol] 1.7 mg/dL 1.6 - 2 .6 mg/dL [facility] No Panel Informationon 05-19 Interpretation and review of laboratory results Normal [facility] Interpretation and review of laboratory results Normal [facility] PHOSPHATE, INORGANICon 05-19 Phosphate [Mass/Vol] 3.0 mg/dL 2.2 - 4 .6 mg/dL [facility] Phosphate [Mass/Vol] 2.7 mg/dL 2.2 - 4 .6 mg/dL [facility] CALCIUMon 05-18-2022 Calcium [Mass/Vol] 9.1 mg/dL 8.6 - 10. 5 mg/dL [facility] CBC,PLATELETSon 05-18-2022 Erythrocyte distribution width (RBC) [Ratio] 12.5 % 10.9 - 14.3 % [facility] Hematocrit (Bld) [Volume fraction] 37.3 % Low 39.6 - 48.8 % [facility] Hemoglobin (Bld) [Mass/Vol] 11.9 g/dL Low 13.4 - 16.8 g/dL [facility] Interpretation and review of laboratory results Abnormal [facility] MCH (RBC) [Entitic mass] 28.9 pg 26.1 - 33.3 pg [facility] MCHC (RBC) [Mass/Vol] 31.9 g/dL 31.9 - 36.5 g/dL [facility] MCV (RBC) [Entitic vol] 90.5 fL 79.0 - 94.5 fL [facility] Platelet mean volume (Bld) [Entitic vol] 10.1 fL 8.7 - 12.3 fL [facility] Platelets (Bld) [#/Vol] 189 10*3/uL 146 - 337 K/uL [facility] RBC (Bld) [#/Vol] 4.12 10*6/uL [facility] [#/Vol] 10.19 10*3/uL High 3.73 - 10 .10 K/[facility]L [facility] CHEM 7 (LYTES,BUN,CREA,GLUC) on 05-18-2022 Anion gap [Moles/Vol] 13 mmol/L 7 - 17 [facility] Chloride [Moles/Vol] 102 mmol/L 98 - 10 8 mmol/L [facility] CO2 [Moles/Vol] 26 mmol/L 21 - 31 mmol/L [facility] Creatinine [Mass/Vol] 1.91 mg/dL High 0.70 - 1.30 mg/dL [facility] GFR/1.73 sq M.predicted CKD-EPI (S/P/Bld) [Vol rate/Area] 42 Low >=60 mL/min/1.73m 2 [facility] Comment on above: Reported eGFR is bas ed on the CKD-EPI 2020 equation using creatinine, age, and sex. Glucose [Mass/Vol] 158 mg/dL High 70 - 99 mg/dL [facility] Osmolality Calc [Osmolality] 297 [facility] Potassium [Moles/Vol] 4.0 mmol/L 3.5 - 5.0 mmol/L [facility] Sodium [Moles/Vol] 137 mmol/L 135 - 145 mmol/L [facility] Urea nitrogen [Mass/Vol] 30 mg/dL High 7 - 25 mg/dL [facility] Urea nitrogen/Creatinine [Mass ratio] 16 mg/mg [facility] CHEM 7 (LYTES,BUN,CREA,GLUC) Ordered By: Tamiko Thapa on 05-18-2022 Anion gap [Moles/Vol] 13 mmol/L 7 - 17 mmol/L [facility] Chloride [Moles/Vol] 104 mmol/L 98 - 10 8 [facility] CO2 [Moles/Vol] 26 mmol/L 21 - 31 mmol/L [facility] Creatinine [Mass/Vol] 2.96 mg/dL High 0.70 - 1.30 mg/dL [facility] GFR/1.73 sq M.predicted CKD-EPI (S/P/Bld) [Vol rate/Area] 25 Low >=60 mL/min/1.73m 2 [facility] Comment on above: Reported eGFR is bas ed on the CKD-EPI 2020 equation using creatinine, age, and sex. Glucose [Mass/Vol] 136 mg/dL High 70 - 99 mg/dL [facility] Interpretation and review of laboratory results Abnormal [facility] Osmolality Calc [Osmolality] 304 [facility] Potassium [Moles/Vol] 4.2 mmol/L 3.5 - 5.0 mmol/L [facility] Sodium [Moles/Vol] 139 mmol/L 135 - 145 mmol/L [facility] Urea nitrogen [Mass/Vol] 41 mg/dL High 7 - 25 mg/dL [facility] Urea nitrogen/Creatinine [Mass ratio] 14 mg/mg [facility] MAGNESIUMon 05-18-2022 Magnesium [Mass/Vol] 2.2 mg/dL 1.6 - 2 .6 mg/dL [facility] Interpretation and review of laboratory results Normal [facility] Magnesium [Mass/Vol] 1.7 mg/dL 1.6 - 2 .6 mg/dL [facility] No Panel Informationon 05-18 Interpretation and review of laboratory results Abnormal [facility] Interpretation and review of laboratory results Normal [facility] PHOSPHATE, INORGANICon 05-18 Phosphate [Mass/Vol] 2.0 mg/dL Low 2.2 - 4 .6 mg/dL [facility] Interpretation and review of laboratory results Normal [facility] Phosphate [Mass/Vol] 2.8 mg/dL 2.2 - 4 .6 mg/dL [facility] PT,INR,PTTon 05-18-2022 aPTT Coag (PPP) [Time] 31.0 s [facility] INR Coag (Bld) [Relative time] 1.1 {INR} [facility] Interpretation and review of laboratory results Abnormal [facility] PT Coag (PPP) [Time] 14.4 s High [facility] URINE CULTUREOrdered By: Sylvia Campos on 05-18-2022 Bacteria identified Cx Nom (Unsp spec) No Growth [facility] CBC,PLATELETSon 05-17-2022 Erythrocyte distribution width (RBC) [Ratio] 12.8 % 10.9 - 14.3 % [facility] Hematocrit (Bld) [Volume fraction] 42.8 % 39.6 - 48.8 % [facility] Hemoglobin (Bld) [Mass/Vol] 13.3 g/dL Low 13.4 - 16.8 g/dL [facility] Interpretation and review of laboratory results Abnormal [facility] MCH (RBC) [Entitic mass] 28.9 pg 26.1 - 33.3 pg [facility] MCHC (RBC) [Mass/Vol] 31.1 g/dL Low 31.9 - 36.5 g/dL [facility] MCV (RBC) [Entitic vol] 92.8 fL 79.0 - 94.5 fL [facility] Platelet mean volume (Bld) [Entitic vol] 10.3 fL 8.7 - 12.3 fL [facility] Platelets (Bld) [#/Vol] 188 10*3/uL 146 - 337 K/uL [facility] RBC (Bld) [#/Vol] 4.61 10*6/uL [facility] WBC (Bld) [#/Vol] 16.61 10*3/uL High 3.73 - 10 .10 K/uL [facility] CHEM 7 (LYTES,BUN,CREA,GLUC) Ordered By: Kaylah Mc on 05-17-2022 Anion gap [Moles/Vol] 15 mmol/L 7 - 17 mmol/L [facility] Chloride [Moles/Vol] 103 mmol/L 98 - 10 8 mmol/L [facility] CO2 [Moles/Vol] 23 mmol/L 21 - 31 mmol/L [facility] Creatinine [Mass/Vol] 5.95 mg/dL High 0.70 - 1.30 mg/dL [facility] GFR/1.73 sq M.predicted CKD-EPI (S/P/Bld) [Vol rate/Area] 11 Low >=60 mL/min/1.73m 2 [facility] Comment on above: Reported eGFR is bas ed on the CKD-EPI 2020 equation using creatinine, age, and sex. Glucose [Mass/Vol] 165 mg/dL High 70 - 99 mg/dL [facility] Interpretation and review of laboratory results Abnormal [facility] Osmolality Calc [Osmolality] 305 [facility] Potassium [Moles/Vol] 4.6 mmol/L 3.5 - 5.0 mmol/L [facility] Sodium [Moles/Vol] 136 mmol/L 135 - 145 mmol/L [facility] Urea nitrogen [Mass/Vol] 52 mg/dL High 7 - 25 mg/dL [facility] Urea nitrogen/Creatinine [Mass ratio] 9 mg/mg [facility] CHEM 7 (LYTES,BUN,CREA,GLUC) Ordered By: Kehinde Gutierrez on 05-17-2022 Anion gap [Moles/Vol] 24 mmol/L High 7 - 17 mmol/L [facility] Chloride [Moles/Vol] 100 mmol/L 98 - 10 8 mmol/L [facility] CO2 [Moles/Vol] 16 mmol/L Low 21 - 31 mmol/L [facility] Creatinine [Mass/Vol] 8.08 mg/dL High 0.70 - 1.30 mg/dL [facility] GFR/1.73 sq M.predicted CKD-EPI (S/P/Bld) [Vol rate/Area] 7 Low >=60 mL/min/1.73m 2 [facility] Comment on above: Reported eGFR is bas ed on the CKD-EPI 2020 equation using creatinine, age, and sex. Glucose [Mass/Vol] 164 mg/dL High 70 - 99 mg/dL [facility] Interpretation and review of laboratory results Abnormal [facility] Osmolality Calc [Osmolality] 305 [facility] Potassium [Moles/Vol] 5.0 mmol/L 3.5 - 5.0 mmol/L [facility] Sodium [Moles/Vol] 135 mmol/L 135 - 145 mmol/L [facility] Urea nitrogen [Mass/Vol] 56 mg/dL High 7 - 25 mg/dL [facility] Urea nitrogen/Creatinine [Mass ratio] 7 mg/mg [facility] LAVENDER TOP TUBEon 05-17-20 [facility] MAGNESIUMon 05-17-2022 Interpretation and review of laboratory results Normal [facility] Magnesium [Mass/Vol] 1.8 mg/dL 1.6 - 2 .6 mg/dL [facility] Interpretation and review of laboratory results Normal [facility] Magnesium [Mass/Vol] 1.6 mg/dL 1.6 - 2 .6 mg/dL [facility] No Panel Informationon 05-17 [facility] PHOSPHATE, INORGANICon 05-17 Interpretation and review of laboratory results Abnormal [facility] Phosphate [Mass/Vol] 4.9 mg/dL High 2.2 - 4 .6 mg/dL [facility] PT,INR,PTTon 05-17-2022 aPTT Coag (PPP) [Time] 33.0 s [facility] INR Coag (Bld) [Relative time] 1.3 {INR} High [facility] Interpretation and review of laboratory results Abnormal [facility] PT Coag (PPP) [Time] 15.7 s High [facility] Portable XR Chest Viewson IMPRESSION: [...] No acute findings. [facility] Radiology Study observation (narrative) [facility] Portable XR Chest ViewsOrder ed By: Raheem Sanz on 05-17-2022 [facility] Work Phone: URINALYSISOrdered By: Michael patel Ma on 05-17-2022 Appearance (U) Cloudy Abnormal Clear [facility] Comment on above: Results may be inacc urate due to color interference. Clinical correlation recommended. Bacteria LM Ql (Urine sed) ABSENT ABSENT [facility] Color (U) Red Abnormal Yellow [facility] Comment on above: Results may be inacc urate due to color interference. Clinical correlation recommended. Epithelial cells.squamous LM Ql (Urine sed) ABSENT 1/hpf = 1+, 2-5/hpf = 2+, 0/hpf = 0+, ABSENT [facility] Glucose Test strip (U) [Mass/Vol] Negative Negative [facility] Comment on above: Results may be inacc urate due to color interference. Clinical correlation recommended. Interpretation and review of laboratory results Abnormal [facility] Ketones (U) [Mass/Vol] Trace Abnormal Negative [facility] Comment on above: Results may be inacc urate due to color interference. Clinical correlation recommended. Leukocyte esterase Test strip Ql (U) Large Abnormal Negative [facility] Comment on above: Results may be inacc urate due to color interference. Clinical correlation recommended. Nitrite Ql (U) Negative Negative [facility] Comment on above: Results may be inacc urate due to color interference. Clinical correlation recommended. pH (U) 5.0 [pH] 5.0 - 7.0 [facility] Comment on above: Results may be inacc urate due to color interference. Clinical correlation recommended. Protein (U) [Mass/Vol] mg/dL Abnormal Negative [facility] Comment on above: Results may be inacc urate due to color interference. Clinical correlation recommended. RBC (U) [#/Vol] Large Abnormal Negative [facility] Comment on above: Results may be inacc urate due to color interference. Clinical correlation recommended. RBC LM.HPF (Urine sed) [#/Area] /[HPF] Abnormal 0 - 2 /HPF [facility] Specific gravity (U) [Rel density] 1.016 [facility] Comment on above: Results may be inacc urate due to color interference. Clinical correlation recommended. Urobilinogen (U) [Mass/Vol] 0.2 E.U./dL 0.2 E.U/dL, 1.0 E.U/dL [facility] Comment on above: Results may be inacc urate due to color interference. Clinical correlation recommended. WBC LM.HPF (Urine sed) [#/Area] /[HPF] Abnormal 0 - 5 /HPF [facility] URINE CULTUREOrdered By: Tyler Tiwari on 05-17-2022 Bacteria identified Cx Nom (Unsp spec) No Growth [facility] CBC,PLATELETSon 05-16-2022 Erythrocyte distribution width (RBC) [Ratio] 12.9 % 10.9 - 14.3 % [facility] Hematocrit (Bld) [Volume fraction] 46.5 % 39.6 - 48.8 % [facility] Hemoglobin (Bld) [Mass/Vol] 14.7 g/dL 13.4 - 16.8 g/dL [facility] Interpretation and review of laboratory results Abnormal [facility] MCH (RBC) [Entitic mass] 28.3 pg 26.1 - 33.3 pg [facility] MCHC (RBC) [Mass/Vol] 31.6 g/dL Low 31.9 - 36.5 g/dL [facility] MCV (RBC) [Entitic vol] 89.6 fL 79.0 - 94.5 fL [facility] Platelet mean volume (Bld) [Entitic vol] 10.3 fL 8.7 - 12.3 fL [facility] Platelets (Bld) [#/Vol] 188 10*3/uL 146 - 337 K/uL [facility] RBC (Bld) [#/Vol] 5.19 10*6/uL [facility] WBC (Bld) [#/Vol] 12.55 10*3/uL High 3.73 - 10 .10 K/uL [facility] CHEM 7 (LYTES,BUN,CREA,GLUC) Ordered By: Alma Pena on 05-16-2022 Anion gap [Moles/Vol] 14 mmol/L 7 - 17 mmol/L [facility] Chloride [Moles/Vol] 103 mmol/L 98 - 10 8 mmol/L [facility] CO2 [Moles/Vol] 22 mmol/L 21 - 31 mmol/L [facility] Creatinine [Mass/Vol] 6.09 mg/dL High 0.70 - 1.30 mg/dL [facility] GFR/1.73 sq M.predicted CKD-EPI (S/P/Bld) [Vol rate/Area] 10 Low >=60 mL/min/1.73m 2 [facility] Comment on above: Reported eGFR is bas ed on the CKD-EPI 2020 equation using creatinine, age, and sex. Glucose [Mass/Vol] 134 mg/dL High 70 - 99 mg/dL [facility] Interpretation and review of laboratory results Abnormal [facility] Osmolality Calc [Osmolality] 298 [facility] Potassium [Moles/Vol] 4.9 mmol/L 3.5 - 5.0 mmol/L [facility] Sodium [Moles/Vol] 134 mmol/L Low 135 - 145 mmol/L [facility] Comment on above: Results inconsistent with previous results Urea nitrogen [Mass/Vol] 49 mg/dL High 7 - 25 mg/dL [facility] Urea nitrogen/Creatinine [Mass ratio] 8 mg/mg [facility] CHEM 7 (LYTES,BUN,CREA,GLUC) on 05-16-2022 Anion gap [Moles/Vol] 17 mmol/L 7 - 17 mmol/L [facility] Chloride [Moles/Vol] 106 mmol/L 98 - 10 8 mmol/L [facility] CO2 [Moles/Vol] 22 mmol/L 21 - 31 mmol/L [facility] Creatinine [Mass/Vol] 5.23 mg/dL High 0.70 - 1.30 mg/dL [facility] GFR/1.73 sq M.predicted CKD-EPI (S/P/Bld) [Vol rate/Area] 13 Low >=60 mL/min/1.73m 2 [facility] Comment on above: Reported eGFR is bas ed on the CKD-EPI 2020 equation using creatinine, age, and sex. Glucose [Mass/Vol] 116 mg/dL High 70 - 99 mg/dL [facility] Interpretation and review of laboratory results Abnormal [facility] Osmolality Calc [Osmolality] 305 [facility] Potassium [Moles/Vol] 4.6 mmol/L 3.5 - 5.0 mmol/L [facility] Sodium [Moles/Vol] 140 mmol/L 135 - 145 mmol/L [facility] Urea nitrogen [Mass/Vol] 42 mg/dL High 7 - 25 mg/dL [facility] Urea nitrogen/Creatinine [Mass ratio] 8 mg/mg [facility] EXTRA MICROon 05-16-2022 [facility] LT BLUE TOP TUBEon 2 [facility] LYTES (NA, K, CL) - URINE - RANDOMon 05-16-2022 Chloride (24H U) [Moles/Vol] 68 mmol/L [facility] Potassium (24H U) [Moles/Vol] 36.7 mmol/L [facility] Sodium (24H U) [Moles/Vol] 55 mmol/L [facility] The reference range has not been established for random urine specimens. The test result should be integrated into the clinical context for interpretation. [facility] MAGNESIUMon 05-16-2022 Interpretation and review of laboratory results Normal [facility] Magnesium [Mass/Vol] 1.7 mg/dL 1.6 - 2 .6 mg/dL [facility] NOVEL CORONAVIRUS PCROrdered By: Edson Candelario on 05-16-2022 SARS-CoV-2 (COVID-19) RNA ESTELITA+probe Ql (Unsp spec) Not detected NOT DETECTED [facility] Comment on above: [facility] Negative results do [...] by authorized laboratories. [facility] No Panel Informationon 05-16 [facility] OSMOLALITY, URINEon 05-16-20 Interpretation and review of laboratory results Normal [facility] Osmolality (U) [Osmolality] 320 mosm/kg [facility] The reference range has not been established for random urine specimens. The test result should be integrated into the clinical context for interpretation. [facility] PROCALCITONINon 05-16-2022 Interpretation and review of laboratory results Normal [facility] Procalcitonin [Mass/Vol] 0.18 ng/mL <0.50 [facility] Comment on above: Procalcitonin is an [...] and trend procalcitonin in various clinical settings. [email or web address] Two common cutoffs associated with bacterial infections are as follows. Respiratory tract infections: >0.25 ng/mL Sepsis/septic shock: >0.5 ng/mL Procalcitonin should not be used alone as a diagnostic tool, however. All procalcitonin results should be interpreted in association with the patients clinical condition and all laboratory findings. [facility] PT,INR,PTTon 05-16-2022 aPTT Coag (PPP) [Time] 30.3 s [facility] INR Coag (Bld) [Relative time] 1.1 {INR} [facility] Interpretation and review of laboratory results Normal [facility] PT Coag (PPP) [Time] 14.1 s [facility] SARS-CoV-2 (COVID-19) RNA NA A+probe Ql (Unsp spec)Ordered By: Edson Candelario on 05-16-2022 Interpretation and review of laboratory results Normal [facility] TACROLIMUS LEVEL, TROUGH (ID E DRUG LEVEL)Ordered By: Mariama Nick on 05-16-2022 Interpretation and review of laboratory results Normal [facility] Tacrolimus (Bld) [Mass/Vol] 4.1 ng/mL Bone Marrow Transplant: 4.0-12.0, Therapeutic: 5.0-15.0 [facility] Method performed is a chemiluminescent microparticle immunoasssay on the [employer] i2000. The range is based on experience at [facility] and users should be aware that target concentrations vary widely depending on concomitant therapy, time post-transplant, and desired degree of immunosuppression. [facility] PROTEIN/CREA RATIO, RA Smiley 05-16-2022 Creatinine (24H U) [Mass/Vol] 59.82 mg/dL [facility] Protein Unsp time (U) [Mass/Vol] 111 mg/dL [facility] Protein/Creatinine (U) [Mass ratio] 1.856 mg/g [facility] US for transplanted kidney dina sánchez [...] the transplant kidney. [facility] Radiology Study observation (narrative) [facility] US for transplanted kidney l imitedOrdered By: Rosendo Matute on 05-16-2022 [facility] Work Phone: CBC AND ELECTRONIC DIFFon Basophils (Bld) [#/Vol] 10*3/uL 0.00 - 0.09 K/uL [facility] Basophils/100 WBC (Bld) 0.2 % [facility] Differential cell count method Nom (Bld) Electronic Differential [facility] Eosinophils (Bld) [#/Vol] 10*3/uL 0.00 - 0.48 K/uL [facility] Eosinophils/100 WBC (Bld) 0.0 % [facility] Erythrocyte distribution width (RBC) [Ratio] 12.8 % 10.9 - 14.3 % [facility] Hematocrit (Bld) [Volume fraction] 46.0 % 39.6 - 48.8 % [facility] Hemoglobin (Bld) [Mass/Vol] 14.6 g/dL 13.4 - 16.8 g/dL [facility] Immature granulocytes (Bld) [#/Vol] 0.07 10*3/uL <=0.08 [facility] Immature granulocytes/100 WBC (Bld) 0.4 % [facility] Interpretation and review of laboratory results Abnormal [facility] Lymphocytes (Bld) [#/Vol] 1.49 10*3/uL 0.83 - 3.57 K/uL [facility] Lymphocytes/100 WBC (Bld) 9.4 % [facility] MCH (RBC) [Entitic mass] 28.2 pg 26.1 - 33.3 pg [facility] MCHC (RBC) [Mass/Vol] 31.7 g/dL Low 31.9 - 36.5 g/dL [facility] MCV (RBC) [Entitic vol] 89.0 fL 79.0 - 94.5 fL [facility] Monocytes (Bld) [#/Vol] 1.45 10*3/uL High 0.24 - 0.93 K/uL [facility] Monocytes/100 WBC (Bld) 9.2 % [facility] Neutrophils (Bld) [#/Vol] 12.77 10*3/uL High 1.57 - 6.19 K/uL [facility] Nucleated RBC/100 WBC (Bld) [Ratio] 0.0 % <=0.2 /100 WBC [facility] Platelet mean volume (Bld) [Entitic vol] 9.9 fL 8.7 - 12.3 fL [facility] Platelets (Bld) [#/Vol] 250 10*3/uL 146 - 337 K/uL [facility] RBC (Bld) [#/Vol] 5.17 10*6/uL [facility] Segmented neutrophils/100 WBC (Bld) 80.8 % [facility] WBC (Bld) [#/Vol] 15.81 10*3/uL High 3.73 - 10 .10 K/uL [facility] CBC AUTO DIFFon 05-15-2022 BASO # 0.0 103/ul Normal 0.0-0.1 [facility] Comment on above: Performed By: #### C BC #### [facility] [address] [place] [address] Dr. Dwight Waters Basophils/100 WBC (Bld) 0.3 % Normal 0.2-2.0 [facility] Comment on above: Performed By: #### C BC #### [facility] [address] [place] [address] Dr. Dwight Waters EO # 0.1 103/ul Normal 0.0-0.7 [facility] Comment on above: Performed By: #### C BC #### [facility] [address] [place] [address] Dr. Dwight Waters Eosinophils/100 WBC (Bld) 0.8 % Critically low 0.9-7.0 [facility] Comment on above: Performed By: #### C BC #### [facility] [address] [place] [address] Dr. Dwight Waters Erythrocyte distribution width (RBC) [Ratio] 12.7 % Normal 11.0-15.0 [facility] Comment on above: Performed By: #### C BC #### [facility] [address] [place] [address] Dr. Dwight Waters Hematocrit (Bld) [Volume fraction] 43.5 % Normal 42.0-54.0 [facility] Comment on above: Performed By: #### C BC #### [facility] [address] [place] [address] Dr. Dwight Waters Hemoglobin (Bld) [Mass/Vol] 14.4 g/dL Normal 14.0-18.0 [facility] Comment on above: Performed By: #### C BC #### [facility] [address] [place] [address] Dr. Dwight Waters IG # 0.02 10e3/ul Normal 0.00-0.03 [facility] Comment on above: Performed By: #### C BC #### [facility] [address] [place] [address] Dr. Dwight Waters IG % 0.2 % Normal 0.0-0.5 [facility] Comment on above: Performed By: #### C BC #### [facility] [address] [place] [address] Dr. Dwight Waters LYMPH # 1.5 103/ul Normal 1.2-3.8 [facility] Comment on above: Performed By: #### C BC #### [facility] [address] [place] [address] Dr. Dwight Waters Lymphocytes/100 WBC (Bld) 12.5 % Critically low 20.5-60.0 [facility] Comment on above: Performed By: #### C BC #### [facility] [address] [place] [address] Dr. Dwight Waters MANUAL DIFF REQ NO Normal [facility] Comment on above: Performed By: #### C BC #### [facility] [address] [place] [address] Dr. Dwight Waters MCH (RBC) [Entitic mass] 28.6 pg Normal 25.9-34.0 [facility] Comment on above: Performed By: #### C BC #### [facility] [address] [place] [address] Dr. Dwight Waters MCHC (RBC) [Mass/Vol] 33.1 g/dL Normal 29.9-35.2 [facility] Comment on above: Performed By: #### C BC #### [facility] [address] [place] [address] Dr. Dwight Waters MCV (RBC) [Entitic vol] 86.3 fL Normal 80.0-94.0 [facility] Comment on above: Performed By: #### C BC #### [facility] [address] [place] [address] Dr. Dwight Waters MONO # 1.0 103/ul Critically high 0.3-0.8 [facility] Comment on above: Performed By: #### C BC #### [facility] [address] [place] [address] Dr. Dwight Waters Monocytes/100 WBC (Bld) 8.2 % Normal 1.7-12.0 [facility] Comment on above: Performed By: #### C BC #### [facility] [address] [place] [address] Dr. Dwight Waters NEUT # 9.1 103/ul Critically high 1.4-6.5 [facility] Comment on above: Performed By: #### C BC #### [facility] [address] [place] [address] Dr. Dwight Waters Neutrophils/100 WBC (Bld) 78.0 % Critically high 43.0-75.0 [facility] Comment on above: Performed By: #### C BC #### [facility] [address] [place] [address] Dr. Dwight Waters Platelet mean volume (Bld) [Entitic vol] 9.8 fL Normal 9.5-13.5 [facility] Comment on above: Performed By: #### C BC #### [facility] [address] [address] [address] Dwight Waters PLT 251 103/ul Normal 150-450 [facility] Comment on above: Performed By: #### C BC #### [facility] [address] [address] [address] Dwight Waters RBC 5.04 106/ul Normal 4.70-6.10 [facility] Comment on above: Performed By: #### C BC #### [facility] [address] [address] [address] Dwight Waters WBC 11.6 103/ul Critically high 4.0-11.0 [facility] Comment on above: Performed By: #### C BC #### [facility] [address] [address] [address] Dwight Waters CHEM 6 (LYTES, BUN CREA)on 0 05-15-2022 Anion gap [Moles/Vol] 12 mmol/L 7 - 17 mmol/L [facility] Chloride [Moles/Vol] 105 mmol/L 98 - 10 8 mmol/L [facility] CO2 [Moles/Vol] 26 mmol/L 21 - 31 mmol/L [facility] Creatinine [Mass/Vol] 2.85 mg/dL High 0.70 - 1.30 mg/dL [facility] GFR/1.73 sq M.predicted CKD-EPI (S/P/Bld) [Vol rate/Area] 26 Low >=60 mL/min/1.73m 2 [facility] Comment on above: Reported eGFR is bas ed on the CKD-EPI 2020 equation using creatinine, age, and sex. Potassium [Moles/Vol] 4.6 mmol/L 3.5 - 5.0 mmol/L [facility] Sodium [Moles/Vol] 138 mmol/L 135 - 145 mmol/L [facility] Urea nitrogen [Mass/Vol] 32 mg/dL High 7 - 25 mg/dL [facility] Urea nitrogen/Creatinine [Mass ratio] 11 mg/mg [facility] CT ABD/PELVIS WO CONon 05-15 CT [...] transplanted kidney with moderate right-sided hydronephrosis. Atrophic [place] kidneys with moderate right-sided hydronephrosis. Multiple nonobstructive [...] transplanted kidney with moderate right-sided hydronephrosis. Atrophic [place] kidneys with moderate right-sided hydronephrosis. Multiple nonobstructive right renal calculi measuring up to 8 mm. FOLLOW-UP: Follow-up as clinically indicated. Electronically authenticated by: LYNDSAY JEAN Date: 2022-05-15 05:04 Normal [facility] Covid-19 PCR (CVDTB)on 04-30 SARS-CoV-2 (COVID-19) RNA ESTELITA+probe Ql (Unsp spec) Not detected Normal NOT DETECTED [facility] Comment on above: Result Comment: When [...] for this test is supported by the [employer] of [employer] and Human Service's declaration that [...] used). Performed By: #### U RTPCR #### [facility] [address] [place] [address] Dr. Dwight Waters GLUCOSEon 05-15-2022 Glucose [Mass/Vol] 141 mg/dL High 70 - 99 mg/dL [facility] GOLD TOP TUBEon 05-15-2022 [facility] HEPATIC FUNCTION PANELon Albumin [Mass/Vol] 4.3 g/dL 3.5 - 5.0 g/dL [facility] ALP [Catalytic activity/Vol] 85 U/L 32 - 126 U/L [facility] ALT [Catalytic activity/Vol] 13 U/L 10 - 52 U/L [facility] AST [Catalytic activity/Vol] 15 U/L 10 - 39 U/L [facility] Bilirubin [Mass/Vol] 0.8 mg/dL <1.5 [facility] Bilirubin.direct [Mass/Vol] 0.2 mg/dL <0.3 [facility] Interpretation and review of laboratory results Normal [facility] Protein [Mass/Vol] 7.3 g/dL 6.4 - 8.3 g/dL [facility] LIPASEon 05-15-2022 Lipase [Catalytic activity/Vol] 8 U/L Low 11 - 82 U/L [facility] No Panel Informationon 05-15 Interpretation and review of laboratory results Abnormal [facility] PROF 14(COMP METB)on 06-16-2 022 Albumin [Mass/Vol] 3.8 g/dL Normal 3.4-5.0 [facility] Comment on above: Performed By: #### U RTPCR #### [facility] [address] [place] [address] Dr. Dwight Waters Albumin/Globulin [Mass ratio] 1.1 {ratio} Normal [facility] Comment on above: Performed By: #### U RTPCR #### [facility] [address] [place] [address] Dr. Dwight Waters ALP [Catalytic activity/Vol] 92 U/L Normal 46-116 [facility] Comment on above: Performed By: #### U RTPCR #### [facility] [address] [place] [address] Dr. Dwight Waters ALT [Catalytic activity/Vol] 25 U/L Normal 16-63 [facility] Comment on above: Performed By: #### U RTPCR #### [facility] [address] [place] [address] Dr. Dwight Waters Anion gap [Moles/Vol] 14.6 mmol/L Normal [facility] Comment on above: Performed By: #### U RTPCR #### [facility] [address] [place] [address] Dr. Dwight Waters AST [Catalytic activity/Vol] 17 U/L Normal 15-37 [facility] Comment on above: Performed By: #### U RTPCR #### [facility] [address] [place] [address] Dr. Dwight Waters Bilirubin [Mass/Vol] 0.6 mg/dL Normal 0.2-1.0 [facility] Comment on above: Performed By: #### U RTPCR #### [facility] [address] [place] [address] Dr. Dwight Waters Calcium [Mass/Vol] 9.9 mg/dL Normal 8.5-10.1 [facility] Comment on above: Performed By: #### U RTPCR #### [facility] [address] [place] [address] Dr. Dwight Waters Chloride [Moles/Vol] 106 mmol/L Normal 98-107 [facility] Comment on above: Performed By: #### U RTPCR #### [facility] [address] [address] [address] Dwight Waters CO2 [Moles/Vol] 24.2 mmol/L Normal 21.0-32.0 [facility] Comment on above: Performed By: #### U RTPCR #### [facility] [address] [address] [address] Dwight Waters Creatinine [Mass/Vol] 1.58 mg/dL Critically high 0.70-1.30 [facility] Comment on above: Performed By: #### U RTPCR #### [facility] [address] [address] [address] Dwight Waters EGFR-AF PALAUAN 56 mL/min/1.73m2 Critically low >=60 [facility] Comment on above: Performed By: #### U RTPCR #### [facility] [address] [address] [address] Dwight Waters EGFR-NON AF PALAUAN 46 mL/min/1.73m2 Critically low >=60 [facility] Comment on above: Performed By: #### U RTPCR #### [facility] [address] [address] [address] Dwight Waters Globulin (S) [Mass/Vol] 3.5 g/dL Normal [facility] Comment on above: Performed By: #### U RTPCR #### [facility] [address] [address] [address] Dwight Waters Glucose [Mass/Vol] 162 mg/dL Critically high 74-106 [facility] Comment on above: Performed By: #### U RTPCR #### [facility] [address] [address] [address] Dwight Waters Potassium [Moles/Vol] 3.8 mmol/L Normal 3.5-5.1 [facility] Comment on above: Performed By: #### U RTPCR #### [facility] [address] [address] [address] Dwight Waters Protein [Mass/Vol] 7.3 g/dL Normal 6.4-8.2 [facility] Comment on above: Performed By: #### U RTPCR #### [facility] [address] [address] [address] Dwight Waters Sodium [Moles/Vol] 141 mmol/L Normal 136-145 [facility] Comment on above: Performed By: #### U RTPCR #### [facility] [address] [address] [address] Dwight Waters Urea nitrogen [Mass/Vol] 22.0 mg/dL Critically high 7.0-18.0 [facility] Comment on above: Performed By: #### U RTPCR #### [facility] [address] [address] [address] Dwight Waters Urea nitrogen/Creatinine [Mass ratio] 13.9 mg/mg Normal [facility] Comment on above: Performed By: #### U RTPCR #### [facility] [address] [address] [address] Dwight Waters Portable XR Chest Viewson [...] IMPRESSION IMPRESSION: No acute cardiopulmonary disease [facility] Radiology Study observation (narrative) [facility] Portable XR Chest ViewsOrder ed By: Vladislav Omer on 05-15-2022 [facility] URINE DIPSTICK; REFLEX MICRO SCOPY; REFLEX CULTURE PERFORMABLEon 05-15-2022 Appearance (U) Clear Clear [facility] Color (U) Yellow Yellow [facility] Glucose Test strip (U) [Mass/Vol] 100 mg/dL Abnormal Negative [facility] Interpretation and review of laboratory results Abnormal [facility] Ketones (U) [Mass/Vol] Negative Negative [facility] Leukocyte esterase Test strip Ql (U) Large Abnormal Negative [facility] Nitrite Ql (U) Negative Negative [facility] pH (U) 6.0 [pH] 5.0 - 7.0 [facility] Protein (U) [Mass/Vol] 100 mg/dL Abnormal Negative [facility] RBC (U) [#/Vol] Large Abnormal Negative [facility] Specific gravity (U) [Rel density] 1.010 [facility] Urobilinogen (U) [Mass/Vol] 0.2 E.U./dL 0.2 E.U/dL, 1.0 E.U/dL [facility] URINE MICROSCOPIC WITH REFLE X TO CULTUREOrdered By: Rey Bro on 05-15-2022 Bacteria LM Ql (Urine sed) ABSENT ABSENT [facility] Epithelial cells.squamous LM Ql (Urine sed) ABSENT 1/hpf = 1+, 2-5/hpf = 2+, 0/hpf = 0+, ABSENT [facility] Interpretation and review of laboratory results Abnormal [facility] RBC LM.HPF (Urine sed) [#/Area] /[HPF] Abnormal 0 - 2 /HPF [facility] WBC LM.HPF (Urine sed) [#/Area] 10-20 Abnormal 0 - 5 /HPF [facility] CT ABD/PELVIS WO CONon 05-12 CT ABD/PELVIS WO CON Begin Addendum #[address] Lund 3:25 PM EST 05/11/2022. Begin Addendum #2 IMPRESSION below should also contain the followin. 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 The [place] kidneys are progressively atrophic bilaterally compared to [...] of 06/14/2020 are no longer present. The [place] distal right ureter is decompressed beyond this [...] with surgical history for renal graft and [place] right urinary drainage, as a discrete ureteroneocystostomy is not identified, and the graft may be draining via a ureteroureterostomy. Urology consultation recommended. 3. The [place] kidneys are bilaterally atrophic, with right renal sinus calcifications consistent with nonobstructing right [place] renal calculi up to 6 mm. Normal [facility] CBC AUTO DIFFon 05-11-2022 BASO # 0.1 103/ul Normal 0.0-0.1 [facility] Comment on above: Performed By: #### U RTPCR #### [facility] [address] [address] [address] Dwight Waters Basophils/100 WBC (Bld) 0.8 % Normal 0.2-2.0 [facility] Comment on above: Performed By: #### U RTPCR #### [facility] [address] [address] [address] Dwight Waters EO # 0.2 103/ul Normal 0.0-0.7 [facility] Comment on above: Performed By: #### U RTPCR #### [facility] [address] [address] [address] Dwight Waters Eosinophils/100 WBC (Bld) 2.5 % Normal 0.9-7.0 [facility] Comment on above: Performed By: #### U RTPCR #### [facility] [address] [place] [address] Dr. Dwight Waters Erythrocyte distribution width (RBC) [Ratio] 12.5 % Normal 11.0-15.0 [facility] Comment on above: Performed By: #### U RTPCR #### [facility] [address] [place] [address] Dr. Dwight Waters Hematocrit (Bld) [Volume fraction] 48.3 % Normal 42.0-54.0 [facility] Comment on above: Performed By: #### U RTPCR #### [facility] [address] [place] [address] Dr. Dwight Waters Hemoglobin (Bld) [Mass/Vol] 15.3 g/dL Normal 14.0-18.0 [facility] Comment on above: Performed By: #### U RTPCR #### [facility] [address] [place] [address] Dr. Dwight Waters IG # 0.01 10e3/ul Normal 0.00-0.03 [facility] Comment on above: Performed By: #### U RTPCR #### [facility] [address] [place] [address] Dr. Dwight Waters IG % 0.2 % Normal 0.0-0.5 [facility] Comment on above: Performed By: #### U RTPCR #### [facility] [address] [place] [address] Dr. Dwight Waters LYMPH # 1.9 103/ul Normal 1.2-3.8 [facility] Comment on above: Performed By: #### U RTPCR #### [facility] [address] [place] [address] Dr. Dwight Watesr Lymphocytes/100 WBC (Bld) 29.8 % Normal 20.5-60.0 [facility] Comment on above: Performed By: #### U RTPCR #### [facility] [address] [place] [address] Dr. Dwight Waters MANUAL DIFF REQ NO Normal [facility] Comment on above: Performed By: #### U RTPCR #### [facility] [address] [place] [address] Dr. Dwight Waters MCH (RBC) [Entitic mass] 28.2 pg Normal 25.9-34.0 [facility] Comment on above: Performed By: #### U RTPCR #### [facility] [address] [address] [address] Dwight Waters MCHC (RBC) [Mass/Vol] 31.7 g/dL Normal 29.9-35.2 [facility] Comment on above: Performed By: #### U RTPCR #### [facility] [address] [address] [address] Dwight Waters MCV (RBC) [Entitic vol] 89.1 fL Normal 80.0-94.0 [facility] Comment on above: Performed By: #### U RTPCR #### [facility] [address] [place] [address] Dr. Dwight Waters MONO # 0.6 103/ul Normal 0.3-0.8 [facility] Comment on above: Performed By: #### U RTPCR #### [facility] [address] [place] [address] Dr. Dwight Waters Monocytes/100 WBC (Bld) 9.0 % Normal 1.7-12.0 [facility] Comment on above: Performed By: #### U RTPCR #### [facility] [address] [place] [address] Dr. Dwight Waters NEUT # 3.6 103/ul Normal 1.4-6.5 [facility] Comment on above: Performed By: #### U RTPCR #### [facility] [address] [place] [address] Dr. Dwight Waters Neutrophils/100 WBC (Bld) 57.7 % Normal 43.0-75.0 [facility] Comment on above: Performed By: #### U RTPCR #### [facility] [address] [place] [address] Dr. Dwight Waters Platelet mean volume (Bld) [Entitic vol] 9.9 fL Normal 9.5-13.5 [facility] Comment on above: Performed By: #### U RTPCR #### [facility] [address] [place] [address] Dr. Dwight Waters PLT 249 103/ul Normal 150-450 [facility] Comment on above: Performed By: #### U RTPCR #### [facility] [address] [place] [address] Dr. Dwight Waters RBC 5.42 106/ul Normal 4.70-6.10 [facility] Comment on above: Performed By: #### U RTPCR #### [facility] [address] [place] [address] Dr. Dwight Waters WBC 6.3 103/ul Normal 4.0-11.0 [facility] Comment on above: Performed By: #### U RTPCR #### [facility] [address] [place] [address] Dr. Dwight Waters ER URINE PROFILEon 2 Bilirubin Ql (U) Unable to perform te sting due to color interference. Abnormal NEGATIVE [facility] Comment on above: Performed By: #### U RTPCR #### [facility] [address] [place] [address] Dr. Dwight Waters Clarity (U) TURBID Abnormal CLEAR [facility] Comment on above: Performed By: #### U RTPCR #### [facility] [address] [place] [address] Dr. Dwight Waters Color (U) RED Abnormal YELLOW [facility] Comment on above: Performed By: #### U RTPCR #### [facility] [address] [place] [address] Dr. Dwight Waters ERUAHD A micrscopic examina tion will be performed if indicated. Normal [facility] Comment on above: Performed By: #### U RTPCR #### [facility] Laboratory [address] [place] [address] Dr. Dwight Waters Glucose Ql (U) Unable to perform te sting due to color interference. Abnormal NEGATIVE [facility] Comment on above: Performed By: #### U RTPCR #### [facility] [address] [place] [address] Dr. Dwight Waters Hemoglobin Ql (U) Unable to perform te sting due to color interference. Abnormal NEGATIVE [facility] Comment on above: Performed By: #### U RTPCR #### [facility] [address] [place] [address] Dr. Dwight Waters Ketones Ql (U) Unable to perform te sting due to color interference. Abnormal NEGATIVE [facility] Comment on above: Performed By: #### U RTPCR #### [facility] [address] [place] [address] Dr. Dwight Waters LEUKOCYTES Unable to perform te sting due to color interference. Abnormal NEGATIVE [facility] Comment on above: Performed By: #### U RTPCR #### [facility] [address] [place] [address] Dr. Dwight Waters Nitrite Ql (U) Unable to perform te sting due to color interference. Abnormal NEGATIVE [facility] Comment on above: Performed By: #### U RTPCR #### [facility] [address] [place] [address] Dr. Dwight Waters pH (U) 6.5 [pH] Normal 5-9 [facility] Comment on above: Performed By: #### U RTPCR #### [facility] [address] [place] [address] Dr. Dwight Waters SPEC GRAVITY 1.020 Normal 1.005-<=1.[address] [facility] Comment on above: Performed By: #### U RTPCR #### [facility] [address] [place] [address] Dr. Dwight Waters UA PROTEIN Unable to perform te sting due to color interference. Normal NEGATIVE/ TRACE [facility] Comment on above: Performed By: #### U RTPCR #### [facility] [address] [place] [address] Dr. Dwight Waters UR MICRO IND INDICATED Normal [facility] Comment on above: Performed By: #### U RTPCR #### [facility] [address] [place] [address] Dr. Dwight Waters UROBILINOGEN Unable to perform te sting due to color interference. Normal 0.2 - 1.0 [facility] Comment on above: Performed By: #### U RTPCR #### [facility] [address] [place] [address] Dr. Dwight Waters PROF 14(COMP METB)on 022 Albumin [Mass/Vol] 3.8 g/dL Normal 3.4-5.0 [facility] Comment on above: Performed By: #### C MP #### [facility] [address] [place] [address] Dr. Dwight Waters Albumin/Globulin [Mass ratio] 1.1 {ratio} Normal [facility] Comment on above: Performed By: #### C MP #### [facility] [address] [place] [address] Dr. Dwight Waters ALP [Catalytic activity/Vol] 106 U/L Normal 46-116 [facility] Comment on above: Performed By: #### C MP #### [facility] [address] [place] [address] Dr. Dwight Waters ALT [Catalytic activity/Vol] 30 U/L Normal 16-63 [facility] Comment on above: Performed By: #### C MP #### [facility] [address] [place] [address] Dr. Dwight Waters Anion gap [Moles/Vol] 11.7 mmol/L Normal [facility] Comment on above: Performed By: #### C MP #### [facility] [address] [place] [address] Dr. Dwight Waters AST [Catalytic activity/Vol] 16 U/L Normal 15-37 [facility] Comment on above: Performed By: #### C MP #### [facility] [address] [place] [address] Dr. Dwight Waters Bilirubin [Mass/Vol] 0.6 mg/dL Normal 0.2-1.0 [facility] Comment on above: Performed By: #### C MP #### [facility] [address] [place] [address] Dr. Dwight Waters Calcium [Mass/Vol] 9.1 mg/dL Normal 8.5-10.1 [facility] Comment on above: Performed By: #### C MP #### [facility] [address] [place] [address] Dr. Dwihgt Waters CO2 [Moles/Vol] 27.4 mmol/L Normal 21.0-32.0 [facility] Comment on above: Performed By: #### C MP #### [facility] [address] [address] [address] Dwight Waters Creatinine [Mass/Vol] 1.18 mg/dL Normal 0.70-1.30 [facility] Comment on above: Performed By: #### C MP #### [facility] [address] [address] [address] Dwight Waters EGFR-AF PALAUAN >60 Normal >=60 [facility] Comment on above: Performed By: #### C MP #### [facility] [address] [address] [address] Dwight Waters EGFR-NON AF PALAUAN >60 Normal >=60 [facility] Comment on above: Performed By: #### C MP #### [facility] [address] [place] [address] Dr. Dwight Waters Globulin (S) [Mass/Vol] 3.6 g/dL Normal [facility] Comment on above: Performed By: #### C MP #### [facility] [address] [address] [address] Dwight Waters Glucose [Mass/Vol] 192 mg/dL Critically high 74-106 [facility] Comment on above: Performed By: #### C MP #### [facility] [address] [address] [address] Dwight Waters Potassium [Moles/Vol] 4.1 mmol/L Normal 3.5-5.1 [facility] Comment on above: Performed By: #### C MP #### [facility] [address] [place] [address] Dr. Dwight Waters Protein [Mass/Vol] 7.4 g/dL Normal 6.4-8.2 [facility] Comment on above: Performed By: #### C MP #### [facility] [address] [address] [address] Dwight Waters Sodium [Moles/Vol] 142 mmol/L Normal 136-145 [facility] Comment on above: Performed By: #### C MP #### [facility] [address] [place] [address] Dr. Dwight Waters Urea nitrogen [Mass/Vol] 17.0 mg/dL Normal 7.0-18.0 [facility] Comment on above: Performed By: #### C MP #### [facility] [address] [place] [address] Dr. Dwight Waters Urea nitrogen/Creatinine [Mass ratio] 14.4 mg/mg Normal [facility] Comment on above: Performed By: #### C MP #### [facility] [address] [place] [address] Dr. Dwight Waters URINE MICROSCOPIC ONLYon BACTERIA NONE SEEN Normal NONE SEEN [facility] Comment on above: Performed By: #### U RTPCR #### [facility] [address] [place] [address] Dr. Dwight Waters Bacteria identified Cx Nom (U) NOT INDICATED Normal [facility] Comment on above: Performed By: #### U RTPCR #### [facility] [address] [place] [address] Dr. Dwight Waters CAST NONE SEEN Normal NONE SEEN [facility] Comment on above: Performed By: #### U RTPCR #### [facility] [address] [place] [address] Dr. Dwight Waters Crystals LM Nom (Urine sed) NONE SEEN Normal NONE SEEN [facility] Comment on above: Performed By: #### U RTPCR #### [facility] [address] [place] [address] Dr. Dwight Waters Epithelial cells LM Ql (Urine sed) RARE Normal NONE SEEN /RARE [facility] Comment on above: Performed By: #### U RTPCR #### [facility] [address] [place] [address] Dr. Dwight Waters MUCOUS NONE SEEN Normal NONE SEEN [facility] Comment on above: Performed By: #### U RTPCR #### [facility] [address] [place] [address] Dr. Dwight Waters RBC (U) [#/Vol] /uL Abnormal 0-2 [facility] Comment on above: Performed By: #### U RTPCR #### [facility] [address] [address] [address] Dwight Waters WBC NONE SEEN Normal NONE SEEN [facility] Comment on above: Performed By: #### U RTPCR #### [facility] [id number] Dwight Waters K (Potassium)on 01-06-2020 Potassium [Moles/Vol] 4.4 mmol/L Normal 3.7-5.3 [facility] Comment on above: Performed By: #### K #### [facility] [address] [place] [id number] Maintainer Central Office: Kehinde Woodward MD Potassiumon 01-06-2020 Potassium [Moles/Vol] 4.4 mmol/L 3.7 - 5.3 mmol/L [facility] Work Phone: Hemoglobin and Hematocrit, B loodon 10-24-2019 Hematocrit (Bld) [Volume fraction] 23.6 % Low 40.7 - 50.3 % [place], [place] Hemoglobin (Bld) [Mass/Vol] 7.3 g/dL Low 13 - 17 g/dL [place] Interpretation and review of laboratory results Abnormal [place] Hgb/Hcton 10-24-2019 Hematocrit (Bld) [Volume fraction] 23.6 % Low 40.7-50.3 [facility] Comment on above: Performed By: #### H H #### [facility] [address] [place], [place] [id number] Maintainer Central Office: Kehinde Woodward MD Hemoglobin (Bld) [Mass/Vol] 7.3 g/dL Low 13.0-17.0 [facility] Comment on above: Performed By: #### H H #### [facility] [address] [place] [address] Maintainer Central Office: Kehinde Woodward MD Hemoglobinon 08-27-2019 Hemoglobin (Bld) [Mass/Vol] 7.5 g/dL Low 13.0-17.0 [facility] Comment on above: Performed By: #### H GB #### [facility] [address] [place] [address] Maintainer Central Office: Kehinde Woodward MD Hemoglobin (Bld) [Mass/Vol] 7.5 g/dL Low 13 - 17 g/dL [place], [place] Interpretation and review of laboratory results Abnormal [place] Hemoglobinon 08-08-2019 Hemoglobin (Bld) [Mass/Vol] 8.3 g/dL Low 13.0-17.0 [facility] Comment on above: Performed By: #### H GB #### [facility] [address] [place] [address] Maintainer Central Office: Kehinde Woodward MD Hemoglobin (Bld) [Mass/Vol] 8.3 g/dL Low 13 - 17 g/dL [place] Interpretation and review of laboratory results Abnormal [place] Hemoglobinon 08-04-2019 Hemoglobin (Bld) [Mass/Vol] 8.0 g/dL Low 13.0-17.0 [facility] Comment on above: Performed By: #### H GB #### [facility] [address] [place] [address] Maintainer Central Office: Kehinde Woodward MD Hemoglobin A1Con 08-03-2019 HbA1c (Bld) [Mass fraction] % Low 4.8-5.9 [facility] Comment on above: Result Comment: The ADA and AACC recommend providing the estimated average glucose result to permit better patient understanding of their HBA1c result. Performed By: #### G LYHGB #### [facility] [address] [place] [address] Maintainer Central Office: Kehinde Woodward MD Glucose [Mass/Vol] mg/dL mg/dL [place], [place] Comment on above: The ADA and AACC rec ommend providing the estimated average glucose result to permit better patient understanding of their HBA1c result. HbA1c (Bld) [Mass fraction] % Low 4.8 - 5.9 % [facility] [place], [place] Interpretation and review of laboratory results Abnormal [place] Hemoglobinon 08-01-2019 Hemoglobin (Bld) [Mass/Vol] 8.1 g/dL Low 13.0-17.0 [facility] Comment on above: Performed By: #### H GB #### [facility] [address] [place] [id number] Maintainer Central Office: Kehinde Woodward MD Hemoglobin (Bld) [Mass/Vol] 8.1 g/dL Low 13 - 17 g/dL [place] Interpretation and review of laboratory results Abnormal [place] Hgb/Hcton 06-10-2019 Hematocrit (Bld) [Volume fraction] 24.3 % Low 40.7-50.3 [facility] Comment on above: Performed By: #### H H #### [facility] [address] [place] [address] Dr. [place], [place] [id number] Maintainer Central Office: Kehinde Woodward MD Hemoglobin (Bld) [Mass/Vol] 7.4 g/dL Low 13.0-17.0 [facility] Comment on above: Performed By: #### H H #### [facility] [address] [place] [address] [address] [place] [address] Maintainer Central Office: Kehinde Woodward MD Hemoglobinon 06-01-2019 Hemoglobin (Bld) [Mass/Vol] 7.2 g/dL Low 13.0-17.0 [facility] Comment on above: Performed By: #### H GB #### [facility] [address] [place] [address] Dr. [place], [place] [id number] Maintainer Central Office: Kehinde Woodward MD K (Potassium)on 01-14-2019 Potassium [Moles/Vol] 3.6 mmol/L Low 3.7-5.3 [facility] Comment on above: Performed By: #### K #### [facility] [address] [place] [address] [address] [place] [address] Maintainer Central Office: Kehinde Woodward MD Otheron 10-19-2018 IMPRESSION: 1. [...] characteristics determined by Toxicology Laboratory at [facility]. It has not been cleared or [...] Amitriptyline(50), Amphetamine(250), Atenolol(500), Barbiturates(1000), Benzoylecgonine(50), Buprenorphine(50), Bupropion(25), Caffeine(29357), Chlordiazepoxide(50), Chlorpheniramine(100), Chlorpromazine(50), Citalopram(100), Clonazepam(200), Cocaine(25), Codeine(200), [...] Code MISSY, [facility] TOXICOLOGY SCREEN URINE - [facility] 10-12-2018 Drugs identified Screen Nom (U) For Medical Purposes Only, Non-forensic, screen results are presumptive. No confirmatory testing will follow. Invalid Interpretation Code MISSY, OS Comment on above: This Liquid Chromato graphy Mass Spectrometry (LC/MS/MS) test was developed and its performance characteristics determined by Toxicology Laboratory at [facility]. It has not been cleared or [...] Amitriptyline(50), Amphetamine(250), Atenolol(500), Barbiturates(200), Benzoylecgonine(50), Buprenorphine(500), Bupropion(25), Caffeine(70295), Cannabinoids(THC)(50), Chlordiazepoxide(50), Chlorpheniramine(100), Chlorpromazine(50), Citalopram(100), Clonazepam(200), Cocaine(25), [...] 10:33-0400 Body height 170.2 cm Rebeca Gutierrez APRN-DYE EXPERT Work Phone: [facility] 08-11-2025 10:33-0400 Body mass index (BMI) [Ratio] 32.41 kg/m2 Rebeca Gutierrez PHOTORESIST PRINTER-DYE EXPERT Work Phone: [facility] 08-11-2025 10:33-0400 Body temperature 98.6 [degF] Rebeca Gutierrez PHOTORESIST PRINTER-DYE EXPERT Work Phone: [facility] 08-11-2025 10:33-0400 Body weight 93.85 kg Rebeca Gutierrez PHOTORESIST PRINTER-DYE EXPERT Work Phone: [facility] 08-11-2025 10:33-0400 Diastolic blood pressure 81 mm[Hg] Rebeca Gutierrez PHOTORESIST PRINTER-DYE EXPERT Work Phone: [facility] 08-11-2025 10:33-0400 Heart rate 102 /min Rebeca Gutierrez PHOTORESIST PRINTER-DYE EXPERT Work Phone: [facility] 08-11-2025 10:33-0400 Systolic blood pressure 130 mm[Hg] Rebeca Gutierrez PHOTORESIST PRINTER-DYE EXPERT Work Phone: [facility] 08-10-2025 08:38-0400 Body height 170.18 cm Zuly Marissaz GLUE SIZE MACHINE OPERATOR-C Work Phone: [facility] 08-10-2025 08:38-0400 Body mass index (BMI) [Ratio] 32.8 kg/m2 Zuly Marissaz GLUE SIZE MACHINE OPERATOR-C Work Phone: [facility] 08-10-2025 08:38-0400 Body temperature 97.8 [degF] Zuly Lexiehholz GLUE SIZE MACHINE OPERATOR-C Work Phone: [facility] 08-10-2025 08:38-0400 Body weight 95.02 kg Zuly Brianholz GLUE SIZE MACHINE OPERATOR-C Work Phone: [facility] 08-10-2025 08:38-0400 Diastolic blood pressure 90 mm[Hg] Zuly Brianholz GLUE SIZE MACHINE OPERATOR-C Work Phone: [facility] 08-10-2025 08:38-0400 Heart rate 73 /min Zuly Aichholz GLUE SIZE MACHINE OPERATOR-C Work Phone: [facility] 08-10-2025 08:38-0400 Respiratory rate 18 /min Zuly Aichholz GLUE SIZE MACHINE OPERATOR-C Work Phone: [facility] 08-10-2025 08:38-0400 Systolic blood pressure 158 mm[Hg] Zuly Aichholz GLUE SIZE MACHINE OPERATOR-C Work Phone: [facility] 05-11-2025 10:38-0400 Diastolic blood pressure 82 mm[Hg] Zuly Aichholz GLUE SIZE MACHINE OPERATOR Work Phone: [facility] 05-11-2025 10:38-0400 Systolic blood pressure 136 mm[Hg] Zuly Aichholz GLUE SIZE MACHINE OPERATOR Work Phone: [facility] 05-11-2025 10:07-0400 Body mass index (BMI) [Ratio] 31.95 kg/m2 Zuly Aichholz GLUE SIZE MACHINE OPERATOR Work Phone: [facility] 05-11-2025 10:07-0400 Body temperature 98.71 [degF] Zuly Aichholz GLUE SIZE MACHINE OPERATOR Work Phone: [facility] 05-11-2025 10:07-0400 Body weight 92.53 kg Zuly Aichholz GLUE SIZE MACHINE OPERATOR Work Phone: [facility] 05-11-2025 10:07-0400 Heart rate 74 /min Zluy Aichholz GLUE SIZE MACHINE OPERATOR Work Phone: [facility] 05-11-2025 10:07-0400 Respiratory rate 20 /min Zuly Aichholz GLUE SIZE MACHINE OPERATOR Work Phone: [facility] 05-11-2025 10:07-0400 SaO2% (BldA) [Mass fraction] 96 % Zuly Aichholz GLUE SIZE MACHINE OPERATOR Work Phone: [facility] 03-21-2025 09:43-0400 Body height 170.2 cm Ahmad Mary MD Work Phone: [facility] 03-21-2025 09:43-0400 Body mass index (BMI) [Ratio] 32.89 kg/m2 Tony Hernandez MD Work Phone: [facility] 03-21-2025 09:43-0400 Body weight 95.25 kg Tony Hernandez MD Work Phone: [facility] 03-21-2025 09:43-0400 Heart rate 80 /min Tony Hernandez MD Work Phone: [facility] 03-21-2025 09:43-0400 Respiratory rate 18 /min Tony Hernandez MD Work Phone: [facility] 03-21-2025 09:43-0400 SaO2% (BldA) [Mass fraction] 95 % Tony Hernandez MD Work Phone: [facility] 02-28-2025 09:07-0400 Body height 170.2 cm Tony Hernandez MD Work Phone: [facility] 02-28-2025 09:07-0400 Body mass index (BMI) [Ratio] 32.26 kg/m2 Tony Hernandez MD Work Phone: [facility] 02-28-2025 09:07-0400 Body weight 93.44 kg Tony Hernandez MD Work Phone: [facility] 02-28-2025 09:07-0400 Diastolic blood pressure 90 mm[Hg] Tony Hernandez MD Work Phone: [facility] 02-28-2025 09:07-0400 Heart rate 86 /min Tony Hernandez MD Work Phone: [facility] 02-28-2025 09:07-0400 Respiratory rate 18 /min Tony Hernandez MD Work Phone: [facility] 02-28-2025 09:07-0400 SaO2% (BldA) [Mass fraction] 95 % Tony Hernandez MD Work Phone: [facility] 02-28-2025 09:07-0400 Systolic blood pressure 138 mm[Hg] Tony Hernandez MD Work Phone: [facility] 01-03-2025 11:01-0500 Diastolic blood pressure 88 mm[Hg] Steph Orzech [facility] 01-03-2025 11:01-0500 Heart rate 67 /min Steph Orzech [facility] 01-03-2025 11:01-0500 Respiratory rate 16 /min Steph Orzech [facility] 01-03-2025 11:01-0500 Systolic blood pressure 124 mm[Hg] Steph Orzech [facility] 12-26-2024 09:32-0500 Diastolic blood pressure 71 mm[Hg] Zuly Aichholz Work Phone: [facility] 12-26-2024 09:32-0500 Heart rate 62 /min Zuly Aichholz Work Phone: [facility] 12-26-2024 09:32-0500 Respiratory rate 16 /min Zuly Aichholz Work Phone: [facility] 12-26-2024 09:32-0500 SaO2% (BldA) [Mass fraction] 95 % Zuly Aichholz Work Phone: [facility] 12-26-2024 09:32-0500 Systolic blood pressure 105 mm[Hg] Zuly Aichholz Work Phone: [facility] 12-26-2024 06:58-0500 Body height 170.18 cm Zuly Aichholz Work Phone: [facility] 12-26-2024 06:58-0500 Body weight 89.35 kg Zuly Bruno Work Phone: [facility] 12-15-2024 09:15-0500 Body height 170.18 cm [facility] 12-15-2024 09:15-0500 Body mass index (BMI) [Ratio] 30.8 kg/m2 [facility] 12-15-2024 09:15-0500 Body weight 89.35 kg [facility] 12-15-2024 09:15-0500 Diastolic blood pressure 72 mm[Hg] [facility] 12-15-2024 09:15-0500 Heart rate 82 /min [facility] 12-15-2024 09:15-0500 Systolic blood pressure 126 mm[Hg] [facility] 11-22-2024 09:35-0500 Diastolic blood pressure 95 mm[Hg] Steph Orzech [facility] 11-22-2024 09:35-0500 Heart rate 68 /min Steph Orzech [facility] 11-22-2024 09:35-0500 Systolic blood pressure 135 mm[Hg] Steph Orzech [facility] 11-07-2024 14:29-0500 Body height 170.2 cm 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 Work Phone: [facility] 11-07-2024 14:29-0500 Body mass index (BMI) [Ratio] 31.83 kg/m2 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 Work Phone: [facility] 11-07-2024 14:29-0500 Body temperature 98.2 [degF] 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 Work Phone: [facility] 11-07-2024 14:29-0500 Body weight 92.17 kg 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 Work Phone: [facility] 11-07-2024 14:29-0500 Diastolic blood pressure 86 mm[Hg] Zuly Marissaz GLUE SIZE MACHINE OPERATOR Work Phone: [facility] 11-07-2024 14:29-0500 Heart rate 63 /min Zuly Lexiehholz GLUE SIZE MACHINE OPERATOR Work Phone: [facility] 11-07-2024 14:29-0500 Respiratory rate 18 /min Zuly Lexiehholz GLUE SIZE MACHINE OPERATOR Work Phone: [facility] 11-07-2024 14:29-0500 SaO2% (BldA) [Mass fraction] 96 % Zuly Lexiehlatishaz GLUE SIZE MACHINE OPERATOR Work Phone: [facility] 11-07-2024 14:29-0500 Systolic blood pressure 128 mm[Hg] Zuly Aichholz GLUE SIZE MACHINE OPERATOR Work Phone: [facility] 09-08-2024 13:40-0400 Blood Pressure Location Clementina Galea [facility] 09-08-2024 13:40-0400 Diastolic blood pressure 90 mm[Hg] Clementina Galea [facility] 09-08-2024 13:40-0400 Heart rate 66 /min Clementina Galea [facility] 09-08-2024 13:40-0400 Systolic blood pressure 144 mm[Hg] Clementina Galea [facility] 08-23-2024 08:45-0400 Body height 170.2 cm Zuly Marissaz GLUE SIZE MACHINE OPERATOR Work Phone: [facility] 08-23-2024 08:45-0400 Body mass index (BMI) [Ratio] 30.26 kg/m2 Zuly Lexiehlatishaz GLUE SIZE MACHINE OPERATOR Work Phone: [facility] 08-23-2024 08:45-0400 Body temperature 98.01 [degF] 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 Work Phone: [facility] 08-23-2024 08:45-0400 Body weight 87.64 kg 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 Work Phone: [facility] 08-23-2024 08:45-0400 Diastolic blood pressure 80 mm[Hg] 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 Work Phone: [facility] 08-23-2024 08:45-0400 Heart rate 61 /min 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 Work Phone: [facility] 08-23-2024 08:45-0400 Respiratory rate 18 /min 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 Work Phone: [facility] 08-23-2024 08:45-0400 SaO2% (BldA) [Mass fraction] 96 % 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 Work Phone: [facility] 08-23-2024 08:45-0400 Systolic blood pressure 132 mm[Hg] 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 Work Phone: [facility] 06-17-2024 08:37-0400 Body mass index (BMI) [Ratio] 29.43 kg/m2 Rebeca Gutierrez PHOTORESIST PRINTER-DYE EXPERT Work Phone: [facility] 06-17-2024 08:37-0400 Body temperature 97.39 [degF] Rebeca Gutierrez PHOTORESIST PRINTER-DYE EXPERT Work Phone: [facility] 06-17-2024 08:37-0400 Body weight 85.23 kg Rebeca Gutierrez PHOTORESIST PRINTER-DYE EXPERT Work Phone: [facility] 06-17-2024 08:37-0400 Diastolic blood pressure 75 mm[Hg] Rebeca Gutierrez PHOTORESIST PRINTER-DYE EXPERT Work Phone: [facility] 06-17-2024 08:37-0400 Heart rate 53 /min Rebeca Gutierrez PHOTORESIST PRINTER-DYE EXPERT Work Phone: [facility] 06-17-2024 08:37-0400 Systolic blood pressure 143 mm[Hg] Rebeca Gutierrez PHOTORESIST PRINTER-DYE EXPERT Work Phone: [facility] 06-17-2024 08:36-0400 Body mass index (BMI) [Ratio] 29.43 kg/m2 Daisha Sobotka DO Work Phone: [facility] 06-17-2024 08:36-0400 Body temperature 97.39 [degF] Daisha Sobotka DO Work Phone: [facility] [facility] 06-17-2024 08:36-0400 Body weight 85.23 kg Daisha Sobotka DO Work Phone: [facility] 06-17-2024 08:36-0400 Diastolic blood pressure 75 mm[Hg] Daisha Sobotka DO Work Phone: [facility] 06-17-2024 08:36-0400 Heart rate 53 /min Daisha Sobotka DO Work Phone: [facility] 06-17-2024 08:36-0400 Systolic blood pressure 143 mm[Hg] Daisha Sobotka DO Work Phone: [facility] 02-26-2024 09:07-0400 Diastolic blood pressure 56 mm[Hg] Candie Almaguer MD Work Phone: [facility] 02-26-2024 09:07-0400 Heart rate 65 /min Candie Almaguer MD Work Phone: [facility] 02-26-2024 09:07-0400 Systolic blood pressure 113 mm[Hg] Candie Almaguer MD Work Phone: [facility] 02-26-2024 09:06-0400 Body height 170.2 cm Candie Almaguer MD Work Phone: [facility] 02-26-2024 09:06-0400 Body mass index (BMI) [Ratio] 28.9 kg/m2 Candie Almaguer MD Work Phone: [facility] 02-26-2024 09:06-0400 Body weight 83.69 kg Candie Almaguer MD Work Phone: [facility] 02-26-2024 09:06-0400 Respiratory rate 20 /min Candie Almaguer MD Work Phone: [facility] 02-26-2024 09:06-0400 SaO2% (BldA) [Mass fraction] 97 % Candie Almaguer MD Work Phone: [facility] 01-23-2024 15:04-0500 Body temperature 97.9 [degF] Reese Sage MD Work Phone: [facility] 01-23-2024 15:04-0500 Diastolic blood pressure 67 mm[Hg] Reese Sage MD Work Phone: [facility] 01-23-2024 15:04-0500 Heart rate 51 /min Reese Sage MD Work Phone: [facility] 01-23-2024 15:04-0500 Respiratory rate 16 /min Reese Sage MD Work Phone: [facility] 01-23-2024 15:04-0500 SaO2% (BldA) [Mass fraction] 94 % Reese Sage MD Work Phone: [facility] 01-23-2024 15:04-0500 Systolic blood pressure 151 mm[Hg] Reese Sage MD Work Phone: [facility] 01-23-2024 10:46-0500 Body mass index (BMI) [Ratio] 30.94 kg/m2 Reese Sage MD Work Phone: [facility] 01-23-2024 10:46-0500 Body weight 89.6 kg Reese Sage MD Work Phone: [facility] 01-18-2024 11:21-0500 Body height 170.2 cm Reese Sage MD Work Phone: [facility] 01-06-2024 09:04-0500 Body height 170.2 cm Zuly Kiana GLUE SIZE MACHINE OPERATOR Work Phone: [facility] 01-06-2024 09:04-0500 Body mass index (BMI) [Ratio] 32.42 kg/m2 Zuly Aichholz GLUE SIZE MACHINE OPERATOR Work Phone: [facility] 01-06-2024 09:04-0500 Body temperature 97.81 [degF] Zuly Lexiehlatishaz GLUE SIZE MACHINE OPERATOR Work Phone: [facility] 01-06-2024 09:04-0500 Body weight 93.89 kg Zuly Aichholz GLUE SIZE MACHINE OPERATOR Work Phone: [facility] 01-06-2024 09:04-0500 Diastolic blood pressure 70 mm[Hg] Zuly Lexiehholz GLUE SIZE MACHINE OPERATOR Work Phone: [facility] 01-06-2024 09:04-0500 Heart rate 95 /min Zuly Lexiehholz GLUE SIZE MACHINE OPERATOR Work Phone: [facility] 01-06-2024 09:04-0500 Respiratory rate 17 /min Zuly Aichholz GLUE SIZE MACHINE OPERATOR Work Phone: [facility] 01-06-2024 09:04-0500 SaO2% (BldA) [Mass fraction] 99 % Zuly Lexiehholz GLUE SIZE MACHINE OPERATOR Work Phone: [facility] 01-06-2024 09:04-0500 Systolic blood pressure 138 mm[Hg] Zuly Lexiehholz GLUE SIZE MACHINE OPERATOR Work Phone: [facility] 09-11-2023 10:31-0400 Body temperature 97.81 [degF] Steve Tammy MBBS Work Phone: [facility] 09-11-2023 10:31-0400 Diastolic blood pressure 66 mm[Hg] Steve Tammy MBBS Work Phone: [facility] 09-11-2023 10:31-0400 Heart rate 70 /min Steve Tammy MBBS Work Phone: [facility] 09-11-2023 10:31-0400 Respiratory rate 20 /min Steve Tammy MBBS Work Phone: [facility] 09-11-2023 10:31-0400 SaO2% (BldA) [Mass fraction] 91 % Steve Tammy MBBS Work Phone: [facility] 09-11-2023 10:31-0400 Systolic blood pressure 129 mm[Hg] Steve Tammy MBBS Work Phone: [facility] 09-10-2023 15:50-0400 Body mass index (BMI) [Ratio] 31.99 kg/m2 Steve Tammy MBBS Work Phone: [facility] 09-10-2023 15:50-0400 Body weight 92.67 kg Steve Tammy MBBS Work Phone: [facility] 09-02-2023 07:32-0400 Body height 170.2 cm Steve Tammy MBBS Work Phone: [facility] 08-28-2023 13:33-0400 Body height 170.2 cm Steve Tammy MBBS Work Phone: [facility] 08-28-2023 13:33-0400 Body mass index (BMI) [Ratio] 32.12 kg/m2 Steve Tammy MBBS Work Phone: [facility] 08-28-2023 13:33-0400 Body temperature 97.3 [degF] Steve Tammy MBBS Work Phone: [facility] 08-28-2023 13:33-0400 Body weight 93.03 kg Steve Tammy MBBS Work Phone: [facility] 08-28-2023 13:33-0400 Diastolic blood pressure 41 mm[Hg] Steve Tammy MBBS Work Phone: [facility] 08-28-2023 13:33-0400 Heart rate 116 /min Steve Tammy MBBS Work Phone: [facility] 08-28-2023 13:33-0400 Systolic blood pressure 106 mm[Hg] Steve Tammy MBBS Work Phone: [facility] 06-12-2023 14:50-0400 Body mass index (BMI) [Ratio] 33.8 kg/m2 Rebecasa Gutierrez PHOTORESIST PRINTER-DYE EXPERT Work Phone: [facility] 06-12-2023 14:50-0400 Body temperature 97.3 [degF] Rebeca Gutierrez PHOTORESIST PRINTER-DYE EXPERT Work Phone: [facility] 06-12-2023 14:50-0400 Body weight 97.89 kg Reebca Gutierrez PHOTORESIST PRINTER-DYE EXPERT Work Phone: [facility] 06-12-2023 14:50-0400 Diastolic blood pressure 77 mm[Hg] Rebeca Gutierrez PHOTORESIST PRINTER-DYE EXPERT Work Phone: [facility] 06-12-2023 14:50-0400 Heart rate 76 /min Rebeca Gutierrez PHOTORESIST PRINTER-DYE EXPERT Work Phone: [facility] 06-12-2023 14:50-0400 Systolic blood pressure 146 mm[Hg] Rebeca Gutierrez PHOTORESIST 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 Work Phone: [facility] 01-16-2023 08:57-0500 Body mass index (BMI) [Ratio] 33.66 kg/m2 [facility] Work Phone: [facility] 01-16-2023 08:57-0500 Body temperature 97.3 [degF] [facility] Work Phone: [facility] 01-16-2023 08:57-0500 Body weight 97.[address] [facility] Work Phone: [facility] 01-16-2023 08:57-0500 Diastolic blood pressure 75 mm[Hg] [facility] Work Phone: [facility] 01-16-2023 08:57-0500 Heart rate 76 /min [facility] Work Phone: [facility] 01-16-2023 08:57-0500 Systolic blood pressure 142 mm[Hg] [facility] Work Phone: [facility] 09-10-2022 09:38-0400 Body height 170.2 cm Ryan Yepez MD Work Phone: [facility] 09-10-2022 09:38-0400 Body mass index (BMI) [Ratio] 33.67 kg/m2 Ryan Yepez MD Work Phone: [facility] 09-10-2022 09:38-0400 Body weight 97.52 kg Ryan Yepez MD Work Phone: [facility] 09-10-2022 09:38-0400 Diastolic blood pressure 83 mm[Hg] Ryan Yepez MD Work Phone: [facility] 09-10-2022 09:38-0400 Heart rate 64 /min Ryan Yepez MD Work Phone: 2(745)112-459653 [place] [address] 09-10-2022 09:38-0400 SaO2% (BldA) [Mass fraction] 96 % Ryan Yepez MD Work Phone: 7(833)308-321053 [place] [address] 09-10-2022 09:38-0400 Systolic blood pressure 129 mm[Hg] Ryan Yepez MD Work Phone: 7(444)922-639853 [place] [address] 07-07-2022 13:48-0400 Diastolic blood pressure 76 mm[Hg] Ryan Yepez MD Work Phone: 9(770)624-764353 [place] [address] 07-07-2022 13:48-0400 Heart rate 82 /min Ryan Yepez MD Work Phone: 3(031)094-260253 [place] [address] 07-07-2022 13:48-0400 SaO2% (BldA) [Mass fraction] 96 % Ryan Yepez MD Work Phone: 1(102)520-291653 [place] [address] 07-07-2022 13:48-0400 Systolic blood pressure 141 mm[Hg] Ryan Yepez MD Work Phone: 8(439)709-295353 [place] [address] 06-27-2022 13:32-0400 Body height 170.2 cm Ryan Yepez MD Work Phone: 6(559)130-453553 [place] [address] 06-27-2022 13:32-0400 Body mass index (BMI) [Ratio] 34.24 kg/m2 Ryan Yepez MD Work Phone: 2(610)529-402053 [place] [address] 06-27-2022 13:32-0400 Body temperature 98.6 [degF] Ryan Yepez MD Work Phone: 5(381)642-380853 [place] [address] 06-27-2022 13:32-0400 Body weight 99.16 kg Ryan Yepez MD Work Phone: [facility] 06-27-2022 13:32-0400 Diastolic blood pressure 78 mm[Hg] Ryan Yepez MD Work Phone: [facility] 06-27-2022 13:32-0400 Heart rate 77 /min Ryan Yepez MD Work Phone: [facility] 06-27-2022 13:32-0400 SaO2% (BldA) [Mass fraction] 95 % Ryan Yepez MD Work Phone: [facility] 06-27-2022 13:32-0400 Systolic blood pressure 121 mm[Hg] Ryan Yepez MD Work Phone: [facility] 06-27-2022 10:52-0400 Body height 170.2 cm Rena Brewster RN [facility] 06-27-2022 10:52-0400 Body mass index (BMI) [Ratio] 34.46 kg/m2 Rena Brewster RN [facility] 06-27-2022 10:52-0400 Body temperature 98.2 [degF] Rena Brewster RN [facility] 06-27-2022 10:52-0400 Body weight 99.79 kg Rena Brewster RN [facility] 06-27-2022 10:52-0400 Diastolic blood pressure 73 mm[Hg] Rena Brewster RN [facility] 06-27-2022 10:52-0400 Heart rate 78 /min Rena Brewster RN [facility] 06-27-2022 10:52-0400 Respiratory rate 20 /min Rena Brewster RN [facility] 06-27-2022 10:52-0400 SaO2% (BldA) [Mass fraction] 97 % Rena Brewster RN [facility] 06-27-2022 10:52-0400 Systolic blood pressure 135 mm[Hg] Rena Brewster RN [facility] 06-12-2022 14:23-0400 Body mass index (BMI) [Ratio] 34.59 kg/m2 Stevemassiel Farrari MBBS Work Phone: [facility] 06-12-2022 14:23-0400 Body temperature 97 [degF] Steve Tammy MBBS Work Phone: [facility] 06-12-2022 14:23-0400 Body weight 100.2 kg Stevemassiel Farrari MBBS Work Phone: [facility] 06-12-2022 14:23-0400 Diastolic blood pressure 66 mm[Hg] Stevemassiel Farrari MBBS Work Phone: [facility] 06-12-2022 14:23-0400 Heart rate 63 /min Stevemassiel Farrari MBBS Work Phone: [facility] 06-12-2022 14:23-0400 Systolic blood pressure 133 mm[Hg] Stevemassiel Farrari MBBS Work Phone: [facility] 05-20-2022 15:21-0400 Body temperature 97.9 [degF] Gian Villatoro MD Work Phone: [facility] 05-20-2022 15:21-0400 Diastolic blood pressure 64 mm[Hg] Gian Villatoro MD Work Phone: [facility] 05-20-2022 15:21-0400 Heart rate 55 /min Gian Villatoro MD Work Phone: [facility] 05-20-2022 15:21-0400 Respiratory rate 15 /min Gian Villatoro MD Work Phone: [facility] 05-20-2022 15:21-0400 SaO2% (BldA) [Mass fraction] 95 % Gian Villatoro MD Work Phone: [facility] 05-20-2022 15:21-0400 Systolic blood pressure 145 mm[Hg] Gian Villatoro MD Work Phone: [facility] 05-19-2022 12:15-0400 Body mass index (BMI) [Ratio] 35.87 kg/m2 Gian Villatoro MD Work Phone: [facility] 05-19-2022 12:15-0400 Body weight 103.92 kg Gian Villatoro MD Work Phone: 9(215)156-110343 [place] [address] Comment on above: standing scale 05-16-2022 16:19-0400 Body height 170.2 cm Gian Villatoro MD Work Phone: [facility] 10-19-2018 08:44-0500 BMI (Body Mass Index) 26.58 kg/m2 [facility] Work Phone: 10-19-2018 08:44-0500 BP Diastolic 76 mm[Hg] [facility] Work Phone: 10-19-2018 08:44-0500 BP Systolic 144 mm[Hg] [facility] Work Phone: 10-19-2018 08:44-0500 Height 172.7 cm [facility] Work Phone: 10-19-2018 08:44-0500 Pulse (Heart Rate) 92 /min [facility] Work Phone: 10-19-2018 08:44-0500 Pulse Oximetry 99 % [facility] Work Phone: 10-19-2018 08:44-0500 Respiratory Rate 16 /min [facility] Work Phone: 10-19-2018 08:44-0500 Weight 79.29 kg [facility] Work Phone: 10-12-2018 09:50-0500 BMI (Body Mass Index) 27.24 kg/m2 [facility] Work Phone: 10-12-2018 09:50-0500 Body Temperature 98.6 [degF] [facility] Work Phone: 10-12-2018 09:50-0500 BP Diastolic 80 mm[Hg] [facility] Work Phone: 10-12-2018 09:50-0500 BP Systolic 157 mm[Hg] [facility] Work Phone: 10-12-2018 09:50-0500 Height 169.5 cm [facility] Work Phone: 10-12-2018 09:50-0500 Pulse (Heart Rate) 94 /min [facility] Work Phone: 10-12-2018 09:50-0500 Weight 78.29 kg [facility] Work Phone: Encounters Encounter Date Encounter Type Care Provider Facility Start: 09-27-2025 ambulatory Clementina Montesinos Facility :[facility] Start: 08-11-2025 End: 08-11-2025 Office outpatient visit 25 minutes Rebeca Gutierrez PHOTORESIST PRINTER-DYE EXPERT Work Phone: [facility] Comment on above: 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) Start: 08-11-2025 ambulatory REBECA GUTIERREZ Facili ty:[facility] Start: 08-10-2025 End: 08-10-2025 ambulatory Zuly Mejias Kiana GLUE SIZE MACHINE OPERATOR-C Work Phone: [facility] Work Phone: Start: 08-10-2025 End: 08-10-2025 Patient encounter procedure Zuly Magalie Bruno GLUE SIZE MACHINE OPERATOR-C [facility] Work Phone: Start: 08-10-2025 Patient encounter procedure Zuly Kiana GLUE SIZE MACHINE OPERATOR-C Work Phone: [facility] Start: 07-12-2025 End: 07-13-2025 Refill Zuly Bruno [...] 05-11-2025 End: 05-11-2025 Bamboo flowsheet 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 Work Phone: [facility] Start: 05-11-2025 End: 05-11-2025 Bamboo flowsheet 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 Work Phone: [facility] Start: 05-11-2025 End: 05-11-2025 Patient encounter procedure 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 Work Phone: [facility] [...] Clementina Montesinos Facility:[facility] Start: 03-22-2025 ambulatory [facility] Start: 03-21-2025 End: 03-21-2025 Bamboo flowsheet Tony Hernandez MD Work Phone: [facility] Start: 03-21-2025 End: 03-21-2025 [employer] flowsheet Tony Hernandez MD Work Phone: [facility] Start: 03-21-2025 End: 03-21-2025 Office outpatient visit 40 minutes Tony Hernandez MD Work Phone: [facility] Comment on above: Other osteoporosis w [...] Bamboo flowsheet Tony Hernandez MD Work Phone: [facility] Start: 02-28-2025 End: 02-28-2025 Bamboo flowsheet Toyn Hernandez MD Work Phone: [facility] Start: 02-28-2025 End: 02-28-2025 Office outpatient new 45 minutes Tony Hernandez MD Work Phone: [facility] Comment on above: Other osteoporosis w ithout current pathological fracture; Liver transplant status; Organ transplant Start: 02-28-2025 End: 02-28-2025 ambulatory TONY HERNANDEZ Not Available Start: 02-24-2025 End: 02-24-2025 Refill Zuly Aichholz GLUE SIZE MACHINE OPERATOR Work Phone: [facility] Comment on above: Elevated blood uric acid level (Primary Dx) Start: 02-20-2025 End: 08-01-2025 Telephone encounter Momo Verdugo MD Work Phone: [facility] Comment on above: Med Refill Start: 02-08-2025 End: 02-08-2025 ambulatory ZULY AICHHOLZ Not Available Start: 02-01-2025 End: 02-01-2025 Refill Zuly Aichholz GLUE SIZE MACHINE OPERATOR Work Phone: [facility] Comment on above: Primary hypertension (CMS/HCC) Start: 01-31-2025 End: 01-31-2025 Clinisync Result Encounter Generic External Data Provider [facility] External Department Unsolicited Start: 01-31-2025 End: 01-31-2025 Clinisync Result Encounter Generic External Data Provider [facility] External Department Unsolicited Start: [facility] Start: 01-13-2025 End: 01-13-2025 Orders Only Zuly Aichholz GLUE SIZE MACHINE OPERATOR Work Phone: [facility] Comment on above: Other osteoporosis w ithout current pathological fracture (CMS/HCC) (Primary Dx); Liver transplant status (CMS/HCC); Organ transplant Start: 01-05-2025 End: 01-06-2025 Refill 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 Work Phone: [facility] Comment on above: Other polyneuropathy Start: 01-03-2025 End: 01-03-2025 ambulatory Steph Almodovar Facility: [facility] Start: 01-03-2025 End: 01-03-2025 Patient encounter procedure Steph Almodovar [facility] Start: 12-28-2024 End: 12-28-2024 Clinisync Result Encounter Generic External Data Provider [facility] External Department Unsolicited Start: 12-28-2024 End: 12-28-2024 Clinisync Result Encounter Generic External Data Provider [facility] External Department Unsolicited Start: 12-26-2024 Non-patient / Non-visit Zuly olmedo Work Phone: [facility] Work Phone: Start: 12-26-2024 End: 12-26-2024 Admission to same day surgery center Zuly Bruno Work Phone: [facility] Work Phone: Start: 12-26-2024 End: 12-26-2024 ambulatory Zuly Bruno Work Phone: [facility] Work Phone: Start: 12-23-2024 End: 12-23-2024 Refill 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 Work Phone: [facility] Start: 12-15-2024 End: 12-15-2024 ambulatory [facility] Work Phone: Start: 12-15-2024 End: 12-15-2024 Patient encounter procedure [facility] Work Phone: Start: 11-22-2024 End: 11-22-2024 ambulatory [facility] Start: 11-22-2024 End: 11-22-2024 Patient encounter procedure Steph Almodovar [facility] Start: 11-21-2024 End: 11-21-2024 Clinisync Result Encounter Generic External Data Provider [facility] External Department Unsolicited Start: 11-21-2024 End: 11-21-2024 Clinisync Result Encounter Generic External Data Provider [facility] External Department Unsolicited Start: 11-07-2024 End: 11-07-2024 Office outpatient visit 25 minutes 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 Work Phone: [facility] [...] ambulatory Evan Bolton RPh,[facility] Start: 10-31-2024 End: 10-31-2024 Patient encounter procedure Evan Bolton RPh,PharmD [facility] Start: 10-29-2024 End: 10-29-2024 Refill 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 Work Phone: [facility] [...] Start: 09-08-2024 End: 09-08-2024 ambulatory Clementina Yadavea Facility:[facility] Start: 09-08-2024 End: 09-08-2024 Patient encounter procedure Clementina Montesinos [facility] Start: 09-07-2024 ambulatory SELF SELF Facility[facility] Start: 09-05-2024 End: 09-05-2024 ambulatory Angel Fete RPh,PharmD [facility] Start: 09-05-2024 End: 09-05-2024 Patient encounter procedure Angel Fete RPh,PharmD [facility] Start: 08-29-2024 End: 08-29-2024 Clinisync Result Encounter Generic External Data Provider [facility] External Department Unsolicited Start: 08-29-2024 End: 08-29-2024 Clinisync Result Encounter Generic External Data Provider [facility] External Department Unsolicited Start: 08-24-2024 ambulatory Steph Borges Facility: [facility] Start: 08-23-2024 End: 08-23-2024 Bamboo flowsheet 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 Work Phone: [facility] Start: 08-23-2024 End: 08-23-2024 Bamboo flowsheet 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 Work Phone: [facility] Start: 08-23-2024 End: 08-23-2024 Office outpatient visit 25 minutes 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 Work Phone: [facility] Comment on above: Primary hypertension (CMS/HCC) [...] Start: 08-11-2024 End: 08-12-2024 Refill 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 Work Phone: [facility] Comment on above: Primary hypertension (CMS/HCC) Start: 08-02-2024 End: 08-02-2024 Clinisync Result Encounter Generic External Data Provider [facility] External Department Unsolicited Start: 08-02-2024 End: 08-02-2024 Clinisync Result Encounter Generic External Data Provider [facility] External Department Unsolicited Start: 06-23-2024 End: 06-23-2024 ambulatory Meka Munoz [facility] Start: 06-23-2024 End: 06-23-2024 Patient encounter procedure Meka Munoz [facility] Start: 06-17-2024 End: 06-17-2024 Office outpatient visit 25 minutes Daisha Max DO Work Phone: [facility] Comment on above: Liver lesion (Primar y Dx); Liver transplant recipient; High risk medication use; Therapeutic drug monitoring; 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) Start: 05-26-2024 End: 05-26-2024 ambulatory Evan Bolton [facility],PharmD [facility] Start: 05-26-2024 End: 05-26-2024 Patient encounter procedure Evan Bolton [facility],PharmD [facility] Start: 05-13-2024 End: 05-13-2024 ambulatory [facility] Start: 03-24-2024 End: 03-24-2024 ambulatory Angel Carpio RP,PharmD Pharm[facility] Start: 03-24-2024 End: 03-24-2024 Patient encounter procedure Angel Carpio RPh,PharmD [facility] Start: 03-02-2024 End: 03-02-2024 ambulatory Meka Munoz [facility] Start: 03-02-2024 End: 03-02-2024 Patient encounter procedure Meka Munoz [place] [facility] Pharmacy Outpatient RX [facility] Start: 02-26-2024 End: 02-26-2024 Office outpatient new 30 minutes Candie Almaguer MD Work Phone: [employer] [facility] Comment on above: Heart failure, diast olic, acute (Primary Dx) Start: 02-11-2024 Patient encounter procedure Generic Provider [facility] Start: 01-16-2024 End: 01-23-2024 Evaluation and management of inpatient Reese Sage MD Work Phone: [id number] Comment on above: Pleural effusion on right Start: 01-16-2024 End: 01-23-2024 Patient encounter status Reese Sage MD Work Phone: [facility] Work Phone: Start: 01-12-2024 End: 01-12-2024 ambulatory [...] minutes Zuly Bruno NP Work Phone: [facility] Comment on above: Bilateral lower extr emity edema (Primary Dx); 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); Atherosclerosis 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); Obesity (BMI 30-39.9); DARLENE (obstructive sleep apnea); Tremor; Immunocompromised (CMS/HCC); Primary hypertension ([facility]); Shortness of breath Start: 01-01-2024 [...] disorders Start: 08-19-2023 ambulatory Meka rueda [place] [facility] Pharmacy Outpatient RX [place] Start: 08-19-2023 Patient encounter procedure Meka Alexander [place] [facility] Pharmacy Outpatient RX [place] Start: 06-12-2023 End: 06-12-2023 Office outpatient visit 25 minutes Steve LEIGH Work Phone: [facility] Transplant [facility] Comment on above: 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) Start: 06-10-2023 ambulatory Maren Bar RP,PharmD Pharmacy Outpatient RX [place] Start: 06-10-2023 Patient encounter procedure Maren Bar RPh,PharmD Pharmacy Outpatient RX [place] Start: 04-28-2023 End: 04-29-[address] DOCTOR EVANS Facility:H1 Start: 03-12-2023 ambulatory Angel Fete RPh,PharmD Pharmacy Outpatient RX [facility] Start: 03-12-2023 Patient encounter procedure Angel Fete RPh,PharmD Pharmacy Outpatient RX [place] Start: 03-10-2023 ambulatory Angel Fete RPh,PharmD Pharmacy Outpatient RX [facility] Start: 03-10-2023 Patient encounter procedure Angel Fete RPh,PharmD Pharmacy Outpatient RX [place] Start: 03-02-2023 End: 03-03-[address] DOCTOR EVANS Facility:H1 Start: 01-16-2023 End: 01-16-2023 Office outpatient visit 25 minutes Daisha Max DO Work Phone: [facility] Trans[facility] Comment on above: Abnormal [...] MD Work Phone: [facility] Comment on above: BPH with obstruction /lower urinary tract symptoms (Primary Dx); Encounter for screening for malignant neoplasm of prostate Start: 08-28-2022 End: 08-29-2022 ambulatory ROB BRUNO Facility:H1 Start: 08-14-2022 End: 08-15-[address] DOCTOR EVANS Facility:H1 Start: 07-07-2022 End: 07-07-2022 Patient encounter procedure Ryan Yepez MD Work Phone: [facility] Comment on above: Other hydronephrosis (Primary Dx); [...] MD Work Phone: [facility] Comment on above: Other hydronephrosis (Primary Dx) [...] Phone: [facility] Comment on above: Immunosuppressed sta tus [...] LAWRENCE Facility:H1 Start: 03-14-2022 ambulatory Comfort Rivera [place] [facility] Work Phone: Pharmacy Outpatient RX [place] Start: 03-14-2022 Patient encounter procedure Comfort Rivera [place] [facility] Work Phone: Pharmacy Outpatient RX [facility] Start: 06-14-2021 End: 06-14-2021 ambulatory Comfort Rivera [place] [facility] Work Phone: [facility] Start: 06-14-2021 Patient encounter procedure Comfort Rivera [place] [facility] Work Phone: [facility] Start: 01-20-2020 End: 01-27-2020 Patient encounter procedure PEPE CASE Facility:[facility] Start: 01-06-2020 End: 01-07-2020 Patient encounter procedure RENA GUDINO [facility] Start: 01-06-2020 End: 01-06-2020 Subsequent hospital visit by physician [facility] Start: 10-24-2019 End: 10-25-2019 Patient encounter procedure TANA CAMPA [facility] Start: 10-24-2019 End: 10-24-2019 Subsequent hospital visit by physician [facility] Start: 08-27-2019 End: 08-28-2019 Patient encounter procedure RENA GUDINO [facility] Start: 08-27-2019 End: 08-27-2019 Subsequent hospital visit by physician [facility] Start: 08-08-2019 End: 08-09-2019 Patient encounter procedure [facility] Start: 08-08-2019 End: 08-08-2019 Subsequent hospital visit by physician [facility] Start: 08-03-2019 End: 08-04-2019 Patient encounter procedure [facility] Start: 08-03-2019 End: 08-03-2019 Subsequent hospital visit by physician [facility] Start: 08-01-2019 End: 08-02-2019 Patient encounter procedure [facility] Start: 08-01-2019 End: 08-01-2019 Subsequent hospital visit by physician [facility] Start: 06-10-2019 End: 06-11-2019 [facility] Start: 06-01-2019 End: 06-02-2019 Patient encounter procedure [facility] Start: 01-14-2019 End: 01-15-2019 Patient encounter procedure [facility] Start: 11-17-2018 End: 11-17-2018 [facility] Comment on above: Social Work Follow-u p Start: 10-19-2018 End: 10-19-2018 Patient encounter [facility] Pre Transplant Office Comment on above: Cirrhosis [...] End: 10-12-2018 Patient encounter procedure Sophie Cary [facility] Transplant Center Pre Transplant Office Comment on above: Alcoholic cirrhosis, unspecified whether ascites present (Primary Dx); Pre-transplant evaluation for liver transplant Start: 10-12-2018 End: 10-12-2018 Office outpatient new 60 minutes Alfredito Restrepo Work Phone: [facility] Transplant Center Pre Transplant Office Comment on above: Alcoholic cirrhosis, unspecified whether ascites present; ESRD (end stage renal disease) on dialysis; Pre-transplant evaluation for liver transplant Start: 10-06-2018 End: 10-06-2018 Patient encounter procedure Yovani Orr Work Phone: Department of Radiology Comment on above: Canceled (Insurance Company Redirected Pt) Start: 10-05-2018 Patient encounter status Comfort Rivera [place] [facility] Work Phone: [facility] Procedures Date Procedure Procedure Detail Performing [...] recipient History of liver transplant 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 Work Phone: Start: 02-08-2025 History of renal transplant History of kidney transplant 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 Work Phone: Start: 01-31-2025 ALL CBC WITH [...] Smith MD, LU Work Phone: Start: 01-23-2024 Glucose [...] Start: 01-20-2024 ITRACONAZOLE LEVEL Melania Angel Alarcon [facility] Work Phone: Start: 01-20-2024 [...] Iadna nos quantification each organism Melania Alarcon [facility] Work Phone: Start: 01-18-2024 Echo [...] BY PCR Carol Ann M Hi ll PHOTORESIST PRINTER-ASSEMBLY MACHINE TOOL SETTER Work Phone: Start: 01-08-2024 ALL CBC WITH [...] Phone: Start: 09-04-2023 Assay of magnesium Evan Klely MD Work Phone: Start: 09-04-2023 Hepatic function [...] Phone: Start: 08-31-2023 Assay of ferritin Laurel Serrnao MD, PhD Work Phone: Start: 08-31-2023 Hepatic [...] AURIS SCREEN BY PCR Carol Ann Rollins PHOTORESIST PRINTER-ASSEMBLY MACHINE TOOL SETTER Work Phone: Start: 08-28-2023 CBC AND ELECTRONIC [...] on above: Performed By: #### CMP #### [facility] [address] [place] [address] Dr. Dwight Waters Start: 07-07-2022 Rmvl nfros [...] Work Phone: Start: 05-18-2022 Assay of magnesium Nishnat Gamez MD Work Phone: Start: 05-18-2022 Assay [...] liver recipient S/P liver transplant Comfort Rivera [facility] Work Phone: Start: 04-08-2020 H/O: liver recipient Liver transplant recipient Comfort Rivera [place] [facility] Work Phone: Start: 01-06-2020 Potassium serum plasma/whole blood ROB PATINO Start: 01-06-2020 Potassium serum plasma/whole blood Elyse cooper Risgrace Work Phone: Start: 11-30-2019 Transplant of kidney Steph Almodovar Start: 11-30-2019 [facility] Start: 10-24-2019 HEMOGLOBIN AND HEMATOCRIT, [...] transplant -donor kidney transplant recipient Comfort Rivera [place] [facility] Work Phone: Start: 06-10-2019 HEMOGLOBIN AND HEMATOCRIT, BLOOD ROB K ASMANI Start: 06-01-2019 Blood count hemoglobin ROB KASMANI Start: 03-22-2019 Lipid 1996 panel - Serum or Plasma Comfort Rivera [place] [facility] Work Phone: Start: 01-14-2019 [...] recipient Liver trans plant status 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 Work Phone: H/O: liver recipient S/P liver transplant (CMS/HCC) 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 Work Phone: H/O: liver recipient Liver trans plant status (CMS/HCC) 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 Work Phone: H/O: liver recipient Liver trans plant status Tony Hernandez MD Work Phone: H/O: liver recipient Liver trans plant status Tony Hernandez MD Work Phone: H/O: liver recipient History of liver transplant 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-C Work Phone: History of renal transplant Kidn [...] Kidn ey replaced by transplant Rebeca Gutierrez PHOTORESIST PRINTER-DYE EXPERT Work Phone: History of renal transplant Kidn ey replaced by transplant Rebeca Gutierrez PHOTORESIST PRINTER-DYE EXPERT Work Phone: Plan of Treatment Date Care Activity Detail Author Start: 12-26-2034 Screening for malignant neoplasm of colon [facility] Start: 09-20-2029 Screening for malignant neoplasm of colon [facility] Start: 07-05-2026 Potassium [Moles/volume] in Serum or Plasma POTASSIUM [facility] Start: 05-11-2026 Medicare Annual Wellness (AWV) Medicare Annual Wellness (AWV) [facility] Start: 05-02-2026 Potassium [Moles/volume] in Serum or Plasma POTASSIUM [facility] Start: 10-24-2025 Potassium [Moles/volume] in Serum or Plasma [facility] Start: 09-20-2025 End: 09-20-2025 Patient encounter procedure 09/20/2025 8:00 AM EDT Office Visit [facility] [place] [facility] [address] [place] [phone] [facility] Transplant [facility] Start: 09-19-2025 End: 09-19-2025 Patient encounter procedure [facility] Start: 08-15-2025 Potassium [Moles/volume] in Serum or Plasma [facility] Start: 08-11-2025 End: 08-11-2025 Patient encounter procedure 08/11/2025 10:30 AM EDT Office Visit [facility] [place] [facility] [address] [place] [address] Rebeca Gutierrez, PHOTORESIST [facility] [address] [place] [address] [facility] [place] Start: 08-10-2025 End: 08-10-2025 Patient encounter procedure [facility] Start: 08-04-2025 End: 08-04-2025 Patient encounter procedure 08/04/2025 10:00 AM EDT Office Visit [facility] [place] [facility] [address] [place] [phone] [facility] [place] [facility] Start: 07-31-2025 Influenza vaccination INFLUENZA VACCINE (#1) [facility] Start: 07-04-2025 Potassium [Moles/volume] in Serum or Plasma [facility] Start: 06-20-2025 Potassium [Moles/volume] in Serum or Plasma POTASSIUM [facility] Start: 06-16-2025 End: 06-16-2025 Patient encounter procedure [facility] Start: 06-13-2025 Potassium [Moles/volume] in Serum or Plasma POTASSIUM [facility] Start: 05-23-2025 Potassium [Moles/volume] in Serum or Plasma POTASSIUM [facility] Start: 05-11-2025 End: 05-11-2025 Patient encounter procedure [...] or Plasma POTASSIUM [facility] Start: 03-21-2025 End: 03-21-2026 25-hydroxyvitamin D3 [Mass/volume] in Serum or Plasma Vitamin D 25 hydroxy Total Lab Routine Vitamin D deficiency Expected: 03/21/2025 (Approximate), Expires: 03/21/2026 [facility] Comment on above: Expected: 03/21/2025 (Approximate), Expi res: 03/21/2026 Start: 03-21-2025 End: 03-21-2026 Magnesium [Mass/volume] in Serum or Plasma Magnesium Lab Routine Other osteoporosis without current pathological fracture Expected: 03/21/2025 (Approximate), Expires: 03/21/2026 [facility] Work Phone: Comment on above: Expected: 03/21/2025 (Approximate), Expi res: 03/21/2026 Start: 03-21-2025 End: 03-21-2026 Parathyrin.intact [Mass/volume] in Serum or Plasma PTH, intact Lab Routine Other osteoporosis without current pathological fracture Expected: 03/21/2025 (Approximate), Expires: 03/21/2026 [facility] Comment on above: Expected: 03/21/2025 (Approximate), Expi res: 03/21/2026 Start: 03-21-2025 Potassium [Moles/volume] in Serum or Plasma POTASSIUM [facility] Start: 03-21-2025 End: 03-21-2026 Renal function panel Renal function panel Lab Routine Other osteoporosis without current pathological fracture Expected: 03/21/2025 (Approximate), Expires: 03/21/2026 [facility] Comment on above: Expected: 03/21/2025 (Approximate), Expi res: 03/21/2026 Start: 03-21-2025 End: 03-21-2025 Patient encounter procedure [facility] ENDOCR[facility] Comment on above: Arrived Start: 02-28-2025 End: 02-28-2026 25-hydroxyvitamin D3 [Mass/volume] in Serum or Plasma Vitamin D 25 hydroxy Lab Routine Other osteoporosis without current pathological fracture (CMS/HCC) Expected: 02/28/2025 (Approximate), Expires: 02/28/2026 [facility] Comment on above: Expected: 02/28/2025 (Approximate), Expi res: 02/28/2026 Start: 02-28-2025 End: 02-28-2026 Calcium, urine, 24 hour Calcium, urine, 24 hour Lab Routine Other osteoporosis without current pathological fracture (CMS/HCC) Expected: 02/28/2025 (Approximate), Expires: 02/28/2026 [facility] Comment on above: Expected: 02/28/2025 (Approximate), Expi res: 02/28/2026 Start: 02-28-2025 End: 02-28-2026 Creatinine, urine, 24 hour Creatinine, urine, 24 hour Lab Routine Other osteoporosis without current pathological fracture (CMS/HCC) Expected: 02/28/2025 (Approximate), Expires: 02/28/2026 [facility] Comment on above: Expected: 02/28/2025 (Approximate), Expi res: 02/28/2026 Start: 02-28-2025 End: 02-28-2026 Magnesium [Mass/volume] in Serum or Plasma Magnesium Lab Routine Other osteoporosis without current pathological fracture (CMS/HCC) Expected: 02/28/2025 (Approximate), Expires: 02/28/2026 [facility] Work Phone: Comment on above: Expected: 02/28/2025 (Approximate), Expi res: 02/28/2026 Start: 02-28-2025 End: 02-28-2026 Parathyrin.intact [Mass/volume] in Serum or Plasma PTH, intact Lab Routine Other osteoporosis without current pathological fracture (CMS/HCC) Expected: 02/28/2025 (Approximate), Expires: 02/28/2026 [facility] Comment on above: Expected: 02/28/2025 (Approximate), Expi res: 02/28/2026 Start: 02-28-2025 Potassium [Moles/volume] in Serum or Plasma POTASSIUM [facility] Start: 02-28-2025 End: 02-28-2026 Renal function panel Renal function panel Lab Routine Other osteoporosis without current pathological fracture (CMS/HCC) Expected: 02/28/2025 (Approximate), Expires: 02/28/2026 [facility] Comment on above: Expected: 02/28/2025 (Approximate), Expi res: 02/28/2026 Start: 02-28-2025 End: 02-28-2026 Sodium, urine, 24 hour Sodium, urine, 24 hour Lab Routine Other osteoporosis without current pathological fracture (CMS/HCC) Expected: 02/28/2025 (Approximate), Expires: 02/28/2026 [facility] Comment on above: Expected: 02/28/2025 (Approximate), Expi res: 02/28/2026 Start: 02-28-2025 End: 02-28-2025 Patient encounter procedure [facility] Comment on above: Other osteoporosis without current patho logical fracture; Liver transplant status; Organ transplant Start: 02-10-2025 Medicare Annual Wellness (AWV) Medicare Annual Wellness (V) [facility] Start: 02-08-2025 End: 02-08-2025 Patient encounter procedure 02/08/2025 8:40 AM EDT Office Visit [facility] [address] [place] [address] Zuly Bruno NP [address] [place] [address] [facility] Start: 01-23-2025 Potassium [Moles/volume] in Serum or Plasma POTASSIUM [facility] Start: 12-26-2024 [facility] Start: 11-07-2024 End: 11-07-2024 Patient encounter procedure 11/07/2024 2:20 PM EST [facility] [address] [place] [address] Zuly Bruno, BA [address] [place] [address] [facility] Start: 10-25-2024 End: 10-25-2024 Patient encounter procedure 10/25/2024 8:40 AM EST [facility] [address] [place] [address] Zuly Bruno, BA [address] [place] [phone] [facility] Start: 09-29-2024 Influenza vaccination Influenza Vaccine (#1) [facility] Comment on above: Postponed from 07/31/2024 (Patient Refus ed) Start: 09-07-2024 End: 09-07-2024 Telemedicine consultation with patient 09/07/2024 3:00 PM EDT Telemedicine [facility] Outpatient Care [address] [facility] [address] [place] [phone] Evan White DO [address] [place] [address] [facility] Start: 08-31-2024 Screening for malignant neoplasm of lung [facility] Start: 08-23-2024 End: 08-23-2025 Bacteria identified in Urine by Culture Urine culture (clean catch) Microbiology Routine Dysuria Expected: 08/23/2024 (Approximate), Expires: 08/23/2025 [facility] Comment on above: Expected: 08/23/2024 (Approximate), Expi res: 08/23/2025 Start: 08-23-2024 End: 08-23-2025 DXA Skeletal system Views for bone density DEXA bone density Imaging Routine Immunocompromised ([facility] Organ transplant Expected: 08/23/2024, Expires: 08/23/2025 [facility] Work Phone: Comment on above: Expected: 08/23/2024, Expires: Start: 08-23-2024 End: 08-23-2025 Hemoglobin A1c/Hemoglobin.total in Blood Hemoglobin A1c Lab Routine Blood glucose elevated Expected: 08/23/2024 (Approximate), Expires: 08/23/2025 [facility] Comment on above: Expected: 08/23/2024 (Approximate), Expi res: 08/23/2025 Start: 08-23-2024 End: 08-23-2025 Lipid 1996 panel - Serum or Plasma Lipid panel Lab Routine Mixed hyperlipidemia ([facility]) Expected: 08/23/2024 (Approximate), Expires: 08/23/2025 [facility] Comment on above: Expected: 08/23/2024 (Approximate), Expi res: 08/23/2025 Start: 08-23-2024 End: 08-23-2025 Prostate specific Ag [Mass/volume] in Serum or Plasma PSA Lab Routine Prostate cancer screening Expected: 08/23/2024 (Approximate), Expires: 08/23/2025 [facility] Comment on above: Expected: 08/23/2024 (Approximate), Expi res: 08/23/2025 Start: 08-23-2024 End: 08-23-2025 Thyrotropin [Units/volume] in Serum or Plasma TSH Lab Routine Tremor Expected: 08/23/2024 (Approximate), Expires: 08/23/2025 [facility] Comment on above: Expected: 08/23/2024 (Approximate), Expi res: 08/23/2025 Start: 08-23-2024 End: 08-23-2025 Urinalysis complete panel - Urine Urinalysis with reflex microscopic (clean catch) Lab Routine Dysuria Expected: 08/23/2024 (Approximate), Expires: 08/23/2025 [facility] Comment on above: Expected: 08/23/2024 (Approximate), Expi res: 08/23/2025 Start: 08-23-2024 End: 08-23-2025 US.doppler Carotid arteries - bilateral Vascular US carotid artery duplex bilateral Imaging Routine Left carotid bruit Mixed hyperlipidemia (CMS/HCC) Expected: 08/23/2024, Expires: 08/23/2025 [facility] Comment on above: Expected: 08/23/2024, Expires: Start: 08-23-2024 End: 08-23-2024 Patient encounter procedure 08/23/2024 8:40 AM EDT Office Visit [facility] [address] [place] [phone] Zuly Bruno NP [address] [place] [phone] Primary hypertension (CMS/HCC) (Primary Dx); Portal hypertension (CMS/HCC); Alcoholic cirrhosis of liver without ascites (CMS/HCC) [facility] Comment on above: Primary hypertension (CMS/HCC) (Primary Dx); Portal hypertension (CMS/HCC); Alcoholic cirrhosis of liver without ascites (CMS/HCC) Start: 08-22-2024 End: 08-22-2024 Patient encounter procedure 08/22/2024 9:00 AM EDT Office Visit [facility] [address] [place] [address] Zuly Bruno, BA [address] [place] [phone] [facility] Start: 07-31-2024 Influenza vaccination INFLUENZA VACCINE (#1) [facility] Start: 06-17-2024 End: 06-17-2024 ambulatory [facility] Trans[facility] Start: 06-17-2024 End: 06-17-2024 Patient encounter procedure [facility] Start: 03-22-2024 Fasting lipid profile LIPID SCREENING [facility] Start: 03-22-2024 Lipid panel [facility] Start: 02-26-2024 End: 02-26-2024 Patient encounter procedure 02/26/2024 9:30 AM EDT Office Visit [facility] [address] [place] [phone] Candie Almaguer MD [address] [place] [phone] [facility] Start: 02-11-2024 End: 02-11-2024 Patient encounter procedure 02/11/2024 10:30 AM EDT Office Visit [facility] [address] [place] [address] Zuly Bruno NP [address] [place] [phone] [facility] Start: 02-09-2024 End: 02-09-2024 Telemedicine consultation with patient 02/09/2024 3:30 PM EDT Telemedicine Infectious Diseases Care [facility] Outpatient Care [address] [place] [phone] Cristóbal Ko MD [address] [id number] [facility] Start: 01-15-2024 End: 01-15-2024 ambulatory [facility] Start: 01-15-2024 End: 01-15-2024 Patient encounter procedure [facility] Start: 01-06-2024 End: 01-06-2026 [...] [facility] [address] [place] [address] Zuly Bruno NP [address] [place] [phone] [facility] Start: 12-08-2023 End: 09-07-2024 CT Chest WO contrast [facility] Work Phone: Start: 12-01-2023 COVID-19 VACCINE (2 - Moderna risk series) COVID-19 VACCINE (2 - Moderna risk series) [facility] Start: 09-23-2023 End: 09-23-2023 ambulatory [facility] Start: 09-23-2023 End: 09-23-2023 Telemedicine consultation with patient 09/23/2023 4:00 PM EDT Telemedicine [facility] [place] [facility] [address] [address] Cristóbal Ko MD [address] [address] Infectious Diseases Care [facility] Start: 09-15-2023 End: 09-10-2024 ITRACONAZOLE LEVEL [facility] Start: 08-25-2023 End: 08-25-2024 ALLOSCREEN RECIPIENT (POST TX PRA) ALLOSCREEN RECIPIENT (POST TX PRA) Lab Routine Kidney replaced by transplant Aftercare following organ transplant Immunosuppressed status High risk medication use Other general symptoms and signs Abnormal blood chemistry Expected: 08/25/2023, Expires: 08/25/2024 [facility] Comment on above: Expected: 08/25/2023, Expires: Start: 07-31-2023 Influenza vaccination [facility] Start: 06-12-2023 End: 06-12-2023 Patient encounter procedure 06/12/2023 Office Visit Transplant Surgery Steve Munoz MBBS [address] [place] [address] [facility] Transplant [facility] Start: 03-11-2023 End: 03-11-2023 Telemedicine consultation with patient 03/11/2023 Telemedicine Urology Ryan Yepez MD [address] [facility] [address] [place] [address] [facility] Start: 01-16-2023 End: 01-16-2023 Patient encounter procedure 01/16/2023 Office Visit Transplant Surgery [facility] Transplant [facility] Start: 10-31-2022 End: 10-31-2022 Patient encounter procedure 10/31/2022 Office Visit Transplant Surgery Steve Munoz MBBS [address] [place] [id number] [facility] Transplant [facility] Start: 09-10-2022 End: 09-10-2023 PSA screening PSA, SCREENING Lab Routine BPH with obstruction/lower urinary tract symptoms Encounter for screening for malignant neoplasm of prostate Expected: 09/10/2022 (Approximate), Expires: 09/10/2023 [facility] Comment on above: Expected: 09/10/2022 (Approximate), Expi res: 09/10/2023 Start: 08-11-2022 End: 08-11-2022 Patient encounter procedure 08/11/2022 Office Visit Urology Ryan Yepez MD [address] [facility] [address] [place], [place] [id number] [facility] Start: 07-31-2022 Influenza vaccination [facility] Start: 07-07-2022 End: 07-07-2022 Patient encounter procedure 07/07/2022 Office Visit Urology Ryan Yepez MD [address] [facility] [address] [place] [address] [facility] Start: 07-07-2022 End: 07-07-2023 FLUORO IMAGING FOR UROLOGY [facility] Comment on above: Expected: 07/07/2022, Expires: 3 1 Occurrences starti ng 07/07/2022 until 07/07/2022 Start: 06-27-2022 End: 06-27-2022 Patient encounter procedure 06/27/2022 Office Visit Urology Ryan Yepez MD [address] [facility] [address] [place] [id number] [facility] Start: 06-27-2022 End: 06-27-2023 Basic metabolic 2000 panel - Serum or Plasma BASIC METABOLIC PANEL Lab Routine Other hydronephrosis Expected: 06/27/2022, Expires: 06/27/2023 [facility] Comment on above: Expected: 06/27/2022, Expires: Start: 06-27-2022 End: 06-27-2022 Patient encounter procedure 06/27/2022 Appointment Computerized Tomography Scan Ryan Yepez MD [address] [facility] [address] [place] [id number] Department of Radiology Start: 06-15-2022 End: 05-16-2023 CT Abdomen and Pelvis WO contrast CT ABDOMEN/PELVIS WITHOUT CONTRAST Imaging Routine FAYE (acute kidney injury) Expected: 06/15/2022 (Approximate), Expires: 05/16/2023 [facility] Work Phone: Comment on above: Expected: 06/15/2022 (Approximate), Expi res: 05/16/2023 Start: 06-12-2022 End: 06-12-2022 Patient encounter procedure 06/12/2022 Office Visit Transplant Surgery Steve Munoz MBBS [address] [place] [address] [facility] Transplant [facility] Start: 06-11-2022 End: 06-11-2023 BK VIRUS DNA QN, PCR, PLASMA BK VIRUS DNA QN, PCR, PLASMA Lab Routine Kidney replaced by transplant Liver replaced by transplant Abnormal blood chemistry Expected: 06/11/2022, Expires: 06/11/2023 [facility] Comment on above: Expected: 06/11/2022, Expires: Start: 06-04-2022 End: 06-04-2022 Patient encounter procedure 06/04/2022 Office Visit [facility]ventional [facility]iology [facility] Start: 10-18-2021 End: 10-18-2021 Patient encounter procedure 10/18/2021 Office Visit Transplant Surgery Steve Munoz MBBS [address] [place] [address] [facility] Start: 07-31-2021 Influenza vaccination INFLUENZA VACCINE (#1) [facility] Start: 07-26-2021 End: 07-26-2021 Patient encounter procedure 07/26/2021 Office Visit Transplant Surgery [facility] Start: 2021 Prostate specific antigen measurement [facility] Start: 2021 Screening for malignant neoplasm of lung LUNG CANCER SCREENING [facility] Start: 2021 Zoster vaccine hzv live for subcutaneous use ZOSTER (SHINGLES) VACCINE (1 of 2) [facility] Start: 09-20-2020 Colonoscopy COLORECTAL CANCER SCREENING DISCUSSION [facility] Start: 09-20-2020 Screening for malignant neoplasm of colon [facility] Start: 07-31-2019 Influenza vaccination Flu vaccine (#1) [place], [place] Start: 05-22-2019 Annual Wellness Visit (AWV) Annual Wellness Visit (AWV) [place] Start: 04-18-2019 End: 10-19-2019 Ultrasonography of abdomen US ABDOMEN RUQ/LIVER/GB Routine Cirrhosis of liver without ascites, unspecified hepatic cirrhosis type Expected: 04/18/2019 (Approximate), Expires: 10/19/2019 [facility] Work Phone: Comment on above: Expected: 04/18/2019 (Approximate), Expi res: 10/19/2019 Start: 01-25-2019 End: 01-25-2019 Ambulatory 01/25/2019 Office Visit Gastroenterology Christin Elizabeth, PHOTORESIST PRINTER-DYE EXPERT [address] [place] [address] Division of Gastroenterology [...] for liver transplant Expected: 10/12/2018, Expires: 10/12/2019 [facility] Work Phone: Comment on above: Expected: 10/12/2018, Expires: 9 Start: 10-12-2018 End: 10-12-2019 TYPE AND SCREEN - NOT FOR TRANSFUSION TYPE AND SCREEN - NOT FOR TRANSFUSION Routine Alcoholic cirrhosis, unspecified whether ascites present Pre-transplant evaluation for liver transplant Expected: 10/12/2018, Expires: 10/12/2019 [facility] Work Phone: Comment on above: Expected: 10/12/2018, Expires: 9 Start: 07-31-2018 Influenza vaccination INFLUENZA VACCINE (#1) [facility] Work Phone: Start: 2011 Fasting lipid profile LIPID SCREENING [facility] Work Phone: Start: 2011 Lipid screen Lipid screen [place], [place] Start: 1990 DTaP/Tdap/Td vaccine (1 - Tdap) DTaP/Tdap/Td vaccine (1 - Tdap) [place] Start: 1990 Hepatitis B vaccination HEP B VACCINE (1 of 3 - 19+ 3-dose series) [facility] Start: 1990 Hepatitis B Vaccine (1 of 3 - Risk Recombivax 3-dose series) Hepatitis B Vaccine (1 of 3 - Risk Recombivax 3-dose series) [place] Start: 1990 Pneumococcal vaccination PNEUMOCOCCAL VACCINE SERIES (1 of 2 - PCV) [facility] Start: 1990 Third diphtheria, tetanus and acellular pertussis (DTaP) vaccination [facility] Start: 1990 Zoster vaccine hzv live for subcutaneous use ZOSTER (SHINGLES) VACCINE (1 of 2) [facility] Start: 1990 [facility] Start: 1989 Tetanus vaccination TETANUS [facility] Start: 1986 HIV screen HIV screen [place], [place] Start: 02-17-1984 HIV screening HIV SCREENING DISCUSSION [facility] Work Phone: Start: 1983 COVID-19 VACCINE (1) COVID-19 VACCINE (1) [facility] Start: 1982 DTaP/Tdap/Td vaccine (1 - Tdap) DTaP/Tdap/Td vaccine (1 - Tdap) [place] Start: 1977 Pneumococcal 0-64 years Vaccine (1 of 3 - PCV13) Pneumococcal 0-64 years Vaccine (1 of 3 - PCV13) [place] Start: 1977 PNEUMOCOCCAL VACCINE SERIES (1 - PCV) PNEUMOCOCCAL VACCINE SERIES (1 - PCV) [facility] Start: 1977 PNEUMOCOCCAL VACCINE SERIES (1 of 2 - PCV) PNEUMOCOCCAL VACCINE SERIES (1 of 2 - PCV) [facility] Start: 1977 [facility] Start: 02-17-1976 COVID-19 VACCINE (#1) COVID-19 VACCINE (#1) [facility] Start: 02-17-1976 [facility] Start: 1971 COVID-19 VACCINE (#1) COVID-19 VACCINE (#1) [facility] Start: 1971 Hepatitis B vaccination HEP B VACCINE (1 of 3 - 3-dose series) [facility] Start: 1971 Medicare Annual Wellness (AWV) Medicare Annual Wellness (AWV) [facility] Start: 1971 Screening for malignant neoplasm of colon [facility] Start: 1971 Tetanus vaccination [facility] BK VIRUS DNA QN, PCR , PLASMA BK VIRUS DNA QN, PCR, PLASMA Lab Routine Kidney replaced by transplant Liver replaced by transplant Abnormal blood chemistry 06/12/2022 3:38 PM EDT [facility] CALCULI, URINARY (KIDNEY STONE) CALCULI, URINARY (KIDNEY STONE) Fluids Routine 05/19/2022 8:16 AM EDT [facility] Work Phone: CANNABINOIDS, QUANT (URINE)THC CONFIRMATION CANNABINOIDS, QUANT (URINE)THC CONFIRMATION Routine Alcoholic cirrhosis, unspecified whether ascites present ESRD (end stage renal disease) on dialysis Pre-transplant evaluation for liver transplant 10/12/2018 12:57 PM [facility] Work Phone: End: 09-10-2024 CHEM 6 (LYTES, BUN CREA) [facility] EBV VCA IGG AB EBV VCA IGG AB R outine Alcoholic cirrhosis, unspecified whether ascites present ESRD (end stage renal disease) on dialysis Pre-transplant evaluation for liver transplant 10/12/2018 12:57 PM [facility] Work Phone: Fungus identified in Unspecified specimen by Culture [facility] HLA TYPING (SOLID ORGAN) HLA TYPING (SOLID ORGAN) Routine Alcoholic cirrhosis, unspecified whether ascites present ESRD (end stage renal disease) on dialysis Pre-transplant evaluation for liver transplant 10/12/2018 12:57 PM [facility] Work Phone: HSV 1 AND 2 IGG ANTIBODY HSV 1 AND 2 IGG ANTIBODY Routine Alcoholic cirrhosis, unspecified whether ascites present ESRD (end stage renal disease) on dialysis Pre-transplant evaluation for liver transplant 10/12/2018 12:57 PM [facility] Work Phone: MR Abdomen WO and W contrast IV MRI ABDOMEN WITH AND WITHOUT CONTRAST Imaging Routine Liver lesion Ordered: 06/17/2024 [facility] Comment on above: Ordered: 06/17/2024 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 specific culture [facility] Patient Education Hemorrhoids ED Diverticulosis Know your Meds [facility] Work Phone: PLACEMENT NEPHROSTOM Y CATHETER PERCUTANEOUS W/ IMAGE GUIDANCE PLACEMENT NEPHROSTOMY CATHETER PERCUTANEOUS W/ IMAGE GUIDANCE Imaging Routine Hydronephrosis due to obstruction of ureteral orifice FAYE (acute kidney injury) 05/17/2022 11:08 AM EDT [facility] ID POST VOID RESIDUAL ID POST VO ID RESIDUAL ID - OFFICE PERFORMED Routine BPH with obstruction/lower urinary tract symptoms Ordered: 09/10/2022 [facility] Comment on above: Ordered: 09/10/2022 PTH INTACT PTH INTACT Routi ne Alcoholic cirrhosis, unspecified whether ascites present ESRD (end stage renal disease) on dialysis Pre-transplant evaluation for liver transplant 10/12/2018 12:57 PM [facility] Work Phone: RUBEOLA IGG AB (IMMU NE STATUS) RUBEOLA IGG AB (IMMUNE STATUS) Routine Alcoholic cirrhosis, unspecified whether ascites present ESRD (end stage renal disease) on dialysis Pre-transplant evaluation for liver transplant 10/12/2018 12:57 PM [facility] Work Phone: End: 01-16-2024 Standard ECG ECG ECG Routine One Time for 1 Occurrences starting 01/16/2024 until 01/16/2024 [facility] Comment on above: One Time for 1 Occurrences starting 12/31 until 01/16/2024 End: 09-10-2024 TACROLIMUS LEVEL, TROUGH (PRE DRUG LEVEL) [facility] VARICELLA IGG AB (IM M STATUS) VARICELLA IGG AB (IMM STATUS) Routine Alcoholic cirrhosis, unspecified whether ascites present ESRD (end stage renal disease) on dialysis Pre-transplant evaluation for liver transplant 10/12/2018 12:57 PM EST [facility] Work Phone: Immunizations Immunization Date Immunization Notes Care Provider [facility] 11-01-2024 influenza virus vaccine, unspecified formulation Steph Orzech [facility] 11-01-2024 influenza, seasonal, injectable, preservative free 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 [facility] 11-03-2023 influenza virus vaccine, unspecified formulation Generic Provider [facility] 11-03-2023 Influenza, injectabl e, [place] Canine Kidney, preservative free, quadrivalent Generic Provider [facility] 11-03-2023 Moderna SARS-CoV-2 50mcg/0.5mL Booster Generic Provider [facility] 08-28-2022 influenza virus vaccine, unspecified formulation Steph Orzech [facility] 08-28-2022 influenza, injectabl e, quadrivalent, preservative free Generic Provider [facility] 09-30-2021 influenza virus vaccine, unspecified formulation Steph Orzech [facility] 09-30-2021 influenza, injectabl e, quadrivalent, preservative free Generic Provider [facility] 09-30-2021 SARS-CoV-2 (COVID-19 ) [id number] vaccine Steph Orzech [facility] 02-21-2021 SARS-CoV-2 (COVID-19 ) mRNA-[id number] vaccine Steph Orzech [facility] 01-24-2021 SARS-CoV-2 (COVID-19 ) [id number] vaccine Steph HahnIvantis [facility] 10-16-2020 influenza virus vaccine, unspecified formulation Steph JovaniIvantis [facility] 10-16-2020 influenza, injectabl e, quadrivalent, contains preservative Generic Provider [facility] Payers Date Payer Category Payer Self-pay 2023 Medicare (Managed Care) MEDICARE [employer] HMO [id number] 2019 Unknown [id number] 2019 Unknown [facility] [id number] 2019-Present [id number]. [id number] 2018 Medicaid MEDICAID [facility] DEPT OF JOB xxxxxxxxxxxx 2018-Present [phone] [address] [place] [address] xxxxxxxxxxxx [id number]. [id number] 2018 Medicaid MEDICAID MEDICAI D [id number] 2018-Present [address] [place] [address] [id number] [id number]. [id number] 2018 Medicaid [id number]. [id number] 2018 Medicare MEDICARE MEDICAR E PART A AND B xxxxxxxxxxx 2018-Present [phone] [address] [address] [place] [address] xxxxxxxxxxx [id number]. [id number] 2018 Medicare [id number] 2018 Medicare MEDICARE MEDICAR E A AND B [id number] 2018-Present [address] [place] [address] [id number]. [id number] 2018 Medicare [id number]. 1.13.172.2. [id number] 1971 Unknown [id number] 2.16.840.1.472001.3.579.2. 173 1971 Unknown [id number] 2.16.840.1.639094.3.579.2. 173 1971 Unknown [id number] 2.16.840.1.102151.3.579.2. 173 1971 Unknown [id number] 2.16.840.1.305153.3.579.2. 173 1971 Unknown [id number] 2.16.840.1.071609.3.579.2. 173 1971 Unknown [id number] 2.16.840.1.267927.3.579.2. 173 1971 Unknown [id number] 2.16.840.1.855348.3.579.2. 173 1971 Unknown [id number] 2.16.840.1.905512.3.579.2. 173 1971 Unknown [id number] 2.16.840.1.524771.3.579.2. 647 1971 Unknown [id number] 2.16.840.1.687616.3.579.2. 593 1971 Unknown [id number] 2.16.840.1.775476.3.579.2. 593 1971 Unknown [id number] 2.16.840.1.189963.3.579.2. 593 1971 Unknown [id number] 2.16.840.1.440482.3.579.2. 593 1971 Unknown [id number] 2.16.840.1.571928.3.579.2. 593 1971 Unknown [id number] 2.16.840.1.787482.3.579.2. 593 1971 Unknown [id number] 2.16.840.1.385158.3.579.2. 593 1971 Unknown [id number] 2.16.840.1.023318.3.579.2. 593 1971 Unknown [id number] 2.16.840.1.970489.3.579.2. 593 1971 Unknown [id number] 2.16.840.1.849324.3.579.2. 593 1971 Unknown [id number] 2.16.840.1.656448.3.579.2. 593 1971 Unknown [id number] 2.16.840.1.375647.3.579.2. 593 1971 Unknown [id number] 2.16.840.1.016531.3.579.2. 593 1971 Unknown [id number] 2.16.840.1.130989.3.579.2. 593 1971 Unknown [id number] 2.16.840.1.305382.3.579.2. 593 1971 Unknown [id number] 2.16.840.1.924403.3.579.2. 727 1971 Unknown [id number] 2.16840.1.777248.3.579.2. 727 1971 Unknown [id number] 2.16.840.1.362999.3.579.2. 727 1971 Unknown [id number] 2.840.1.469528.3.579.2. 727 1971 Unknown [id number] 2.840.1.063222.3.579.2. 727 1971 Unknown [id number] .840.1.179784.3.579.2. 727 1971 Unknown [id number] 2.840.1.728556.3.579.2. 1259 1971 Unknown [id number] .840.1.209631.3.579.2. 1259 1971 Unknown [id number] 2.840.1.956000.3.579.2. 1259 1971 Unknown [id number] .840.1.593646.3.579.2. 9 1971 Unknown [id number] .840.1.608888.3.579.2. 1259 1971 Unknown [id number] 840.1.705920.3.579.2. 1259 1971 Unknown [id number] .840.1.892063.3.579.2. 594 1971 Unknown [id number] 840.1.688715.3.579.2. 594 1959 Medicaid [id number] 1959 Medicare [id number] Unknown [id number] 2840.1.448416.3.579.2. 531 Social History Date Type Detail Facility Start: 07-19-2018 End: 10-19-2018 Tobacco smoking status NHIS Former smoker [facility] Start: 07-19-1988 End: 05-14-2018 History of tobacco use Current smoker [facility] Work Phone: Start: 07-19-1988 End: 05-14-2018 History of tobacco use Cigarette Smoker [facility] Work Phone: Start: 10-19-2018 End: 09-05-2024 Cigarettes smoked current (pack per day) - Reported [facility] End: 07-19-1994 History of tobacco use Chews Tobacco [facility] Work Phone: Start: 1970 Sex Assigned At Not on file [facility] Work Phone: Start: 11-03-2018 Alcohol intake Current non-drinker of alcohol (finding) [place] Start: 06-22-2018 Alcohol Comment Hx of alcoholism [place] Start: 11-03-2018 End: 09-05-2024 Alcohol intake No [facility] Start: 07-19-2018 Tobacco use and exposure Former user [facility] Start: 09-06-2020 End: 09-05-2024 Alcohol intake Ex-drinker (finding) [facility] Start: 07-19-2018 Alcohol Comment stopped 05/14/2018 [facility] Start: 05-05-2022 End: 01-16-2023 Exposure to SARS-CoV-2 (event) Not sure [facility] Start: 07-07-2018 Gender identity Identifies as male gender (finding) [facility] Start: 01-16-2022 Sexual orientation Heterosexual (finding) [facility] Start: 11-03-2023 Tobacco use and exposure Smokeless [...] Never smoked tobacco (finding) [facility] Do you belong to any clubs or organizations such as episcopal groups, unions, fraternal or athletic groups, or school groups? Yes [facility] Are you now , , , , never or living with a partner? [facility] Start: 07-05-2018 End: 12-15-2024 Sex Male (finding) [facility] Start: 1970 Sex Assigned At Male [facility] Do you feel stress - tense, restless, nervous, or anxious, or unable to sleep at night because your mind is troubled all the time - these days [OSQ] Not at all [facility] Medical Equipment Procedure Code Equipment Code Equipment Original Text Equipment Identifier Dates [id number] Start: 05-23-2020 [id number] Start: 04-12-2020 [id number] Start: 05-17-2022 Comment on above: Description: Implant time-out completed by intra-procedural staff including this RN, military pay technician, and performing physician. The following was [...] Health [facility] ionnaire 2 item (PHQ-2) [Reported] [facility] 05-04-2025 Patient Health Quest ionnaire 2 item (PHQ-2) [Reported] [facility] 01-03-2025 Functional Status N/A [facility] 11-22-2024 Functional Status N/A [facility] 09-08-2024 Functional Status N/A [facility] 01-16-2024 Are you deaf, or do you have serious difficulty hearing No 01/16/2024 1:01 AM Izzy Kirkland RN No [facility] 01-16-2024 Are you blind, or do you have serious difficulty seeing, even when wearing glasses No 01/16/2024 1:01 AM Izzy Kirkland RN No [facility] 01-16-2024 Do you have serious difficulty walking or climbing stairs No 01/16/2024 1:01 AM Izzy Kirkland RN No [facility] 01-16-2024 Do you have difficul ty dressing or bathing No 01/16/2024 1:01 AM Izzy Kirkland RN No [facility] 01-16-2024 Because of a physica l, mental, or emotional condition, do you have difficulty doing errands alone such as visiting a physician's office or shopping No 01/16/2024 1:01 AM Izzy Kirkland RN No [facility] Mental Status Date Assessment Result Facility 01-16-2024 Because of a physica l, mental, or emotional condition, do you have serious difficulty concentrating, remembering, or making decisions No 01/16/2024 1:01 AM Izzy Kirkland RN No [facility] Clinical Notes 06-14-2021 to 08-11-2025 JEANNA Hess [...] 1DR. No longer follows with a local port traffic manager. History of Present Illness: Since George [...] and lab results. Rebeca Gutierrez PhD, RN, PHOTORESIST PRINTER- Certified Nurse Practitioner [facility] documented in this encounter [facility] 08[facility]2025 Instructions JEANNA Hess - 08/11/2025 10:30 AM EDT No change in immunosuppression. documented in this encounter [facility] 05-29-2025 History of Present illness Narrative [facility] OP RX OUTREACH ADVANCED: Shipping/Pickup: Patient has affirmed needing a refill of the following medications for Shipment : Med Name: Mycophenolate 360mg Med Name: Tacrolimus 0.5mg Contact Info: Specialty [facility] [phone] documented in this encounter [facility] 05-11-2025 History of Present illness Narrative Headaches [...] last year: no Specialist: Transplant [facility], Cardiology [facility], Nephrology, Endo HCPOA/Living Will: living will no [...] stones Arteriosclerosis of coronary artery Recently saw [facility] Cardiology Reviewed notes , increased his [...] Problem(s): Arteriosclerosis of coronary artery Recently saw [facility] Cardiology Reviewed notes , increased his [...] your DARLENE: Martha documented in this encounter [facility] 05-11-2025 Instructions Zuly Bruno NP - 05/11/2025 10:00 AM EDT perform physical activity as chronic conditions allow, also to monitor dietary intake: increasing protein/fruits/veggies and lowering carb intake (unless contraindicated). Limit sodas, juices, and sugary drinks. Check blood pressure once daily notify office consistent readings >150/90 documented in this encounter [facility] 03-23-2025 Note Patient Education Urology Benign Prostatic [...] Follow these instructions at home: ??? Take [id number] and prescription medicines only as told by [...] do not get (more content not included)... [facility] 03-22-2025 Note [place] Cardiology - [facility] Subjective George Styles is a 55 [...] supple. Skin: G (more content not included)... [facility] 03-21-2025 History of Present illness Narrative George Styles is a 55 y.o. male No ref. provider found presents with chief complaint of Follow-up and Osteoporosis (LAB) HPI: IM : 02/2025 Follow-up visit for 24 hour urine calcium 340 ( 100-300), 24 hour urine creatinine 1600 ( 9250-2959), 24 hour urine sodium 200 ( 40-220) [...] deficiency - ergocalciferol (Vitamin D-2) 1.25 MG (21718 UT) capsule; Take 1 capsule (1.25 mg) by mouth 1 (one) time per week - Vitamin D 25 hydroxy Total; Future We will check lab before next visit and adjust. Liver transplant status He is on Prograf and Myfortic Follow up in about 6 months (around 09/20/2025). documented in this encounter [facility] 02-28-2025 History of Present illness Narrative [...] weeks (around 03/21/2025). documented in this encounter [facility] 02-23-2025 Telephone encounter Note Yesourav. My name is George Styles and my number is [phone] need a refill on my fine. [facility] 02-23-2025 Miscellaneous Notes Yesourav. My name is George Styles and my number is [phone] need a refill on my fine. documented in this encounter [facility] 01-03-2025 Hospital Discharge instructions Patient Education [...] urethra. Follow these instructions at home: Take jdre-snc-nbvqeva and prescription medicines only as told by [...] provider. Document Revised: 06/04/2022 Document Reviewed: 06/04/2022 [employer]Hab Patient Education 2023 LegalFácil. Follow Up Care 12/27/2024 09:54:21 With:JONATHAN Almodovar APRN, RUMA La, URL Address: When: Unknown [facility] Alexandre 01-03-2025 Note Patient Education Urology Benign [...] Follow these instructions at home: ??? Take eqge-vzf-hvtxqeq and prescription medicines only as told by [...] do not get (more content not included)... [facility] 12-26-2024 Procedure note [facility] 12-15-2024 Evaluation note Authored December 15, 2024 [...] twice or three times daily if needed. [facility] Work Phone: [phone] Hospital Discharge instructions Patient Education 11/22/2024 09:57:55 [...] if anything looks unusual. Males with a vuzzeu-zzrz-okvvpi risk for skin cancer may want to see a career specialist (hog counter) for an annual body check. Where to find more information [employer]: cancer.org Centers for Disease Control and Prevention: cdc.gov National Cancer [place]: cancer.gov Contact a health care provider if: [...] provider. Document Revised: 11/24/2023 Document Reviewed: 06/08/2023 [employer] Patient Education 2023 LegalFácil. 11/22/2024 09:57:51 Erectile Dysfunction Erectile Dysfunction Erectile [...] Follow these instructions at home: Medicines Take wkwk-llm-mbpxedu and prescription medicines only as told by [...] provider. Document Revised: 02/12/2022 Document Reviewed: 02/12/2022 [employer] Patient Education 2023 LegalFácil. 11/22/2024 09:57:50 Benign Prostatic Hyperplasia Benign Prostatic [...] urethra. Follow these instructions at home: Take ibiw-xoy-mwfezcw and prescription medicines only as told by [...] provider. Document Revised: 06/04/2022 Document Reviewed: 06/04/2022 [email or web address] Patient Education 2023 LegalFácil. Follow Up Care 09/08/2024 14:18:18 With:Jaguar CASTILLO, Clementina Mejias, URL Address: When: Unknown Comments:4 mos [facility] 12-24-2024 NotePatient Education Oncology Cancer Screening [...] if anything looks unusual. Males with a wmmrrf-gbfd-ttwnkr risk for skin cancer may want to see a career specialist (dermatologi (more content not included)...[facility]12-09-2024 History of Present illness Narrative* Zuly Bruno NP - 11/07/2024 2:56 PM ESTAssociated Problem(s): Kidney stones Would caution use of calcium d/t this * Zuly Bruno NP - 11/07/2024 2:54 PM ESTAssociated Problem(s): Other osteoporosis without current pathological fracture ([facility]) DEXA scan is -2.5 osteoprosis Letter sent [...] Ginette, continues w hepatology documented in this encounterParkland Health [id number] Instructions* Patient Instructions* Zuly Bruno NP - 11/07/2024 2:20 PM EST No medication dose changes Recommend cutting back on snacking, goal for 10 pounds weight loss by next visit Exercise as tolerated, most days of the week for approx 30 minutes, treadmill is great option Will reach out again to transplant team about options for osteoporosis documented in this encounterParkland Health [id number] History of Present illness Narrative* Gopi Noyola - 10/31/2024 12:18 PM EST [facility]RE[facility] AD[facility]: Shipping/Pickup: Patient has affirmed needing a refill of the following medications for Shipment (11/01) : Med Name: Mycophenolate 360mg Med Name: Tacrolimus 0.5mg Contact Info: Specialty (Yanci) [phone] Jakob Hendrix [phone] [facility] [phone] Raheem [phone] Bedside Delivery ([facility]) [phone] [facility] Hospital Discharge instructions Patient Education 09/08/2024 [...] urethra. Follow these instructions at home: Take nzdw-pfx-aaneooa and prescription medicines only as told by [...] provider. Document Revised: 06/04/2022 Document Reviewed: 06/04/2022 MedHab Patient Education 2023 LegalFácil. 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 Screening PSA (prostate specific antigen) (Z12.5: Encounter for screening for malignant neoplasmof prostate) No PSA records on file -Will discuss with patient at his follow up Ordered: E&M of New Patient Moderate 45-59 Min 05778 3. History of kidney transplant (Z94.0: Kidney transplant status) 08/29/24 - BUN 18, Cre 1.3, GFR 58 Pt had liver and kidney transplant in 2019 and follows yearly with [facility]. Ordered: E&M of New Patient Moderate 45-59 Min 38033 Orders: tamsulosin, 0.4 mg = 1 cap(s), Oral, BID, X 30 day(s), # 60 cap(s), Refills(s) 11, Pharmacy: [facility], 170, cm, 09/08/24 14:00:00 EDT, Height/Length Dosing, 90, kg, 09/08/24 14:00:00 EDT, Weight Dosing 38385 Measure Post Void residual urine and/or bladder capacity by US- non-imaging Urnls Dip Stick Auto w/o Microscopy POC 36117 Follow-up With When Contact Information Jaguar CASTILLO, [...] Glucose Urine Dipstick: Negative (more content not included)...[facility]:Result Comment: Electronically Signed By: Clementina James.br\Date and Time Signed: 09/08/24 14:33 [id number] Note Patient Education Urology Benign Prostatic Hyperplasia [...] Follow these instructions at home: ? Take tivq-zcv-fldflmi and prescription medicines only as told by [...] You develop side effec (more content not included)...[facility]10-07-2024 History of Present illness Narrative* Starla [...] Required: No Receive/Pickup Date: 09/06/2024 Shipping Address: [address] [place] [address] [address] Contact Info: Specialty (Curlew) [phone] Jakob [phone] [facility] [phone] Raheem [phone] Bedside Delivery ([facility]) [phone] documented in this encounterFirelands [facility] History of Present illness Narrative* Zuly Bruno [...] 02/11/2024 Right nephrolithiasis 02/11/2024 S/P liver transplant ([facility]) Takes dietary supplements Tremor 11/03/2023 [...] Follows yearly with Hepatology documented in this [facility]09-24-2024 Instructions* Patient Instructions* Zuly Bruno NP - 08/23/2024 8:40 AM EDT Labs, referrals to : GI, Urology Tests: bone density test documented in this [facility]07-25-2024 History of Present illness Narrative* Starla Edwards - 06/23/2024 8:51 AM EDT [facility]: Call Information: Date and Time of Contact: 06/23/2024 8:52 AM Method of Contact: By Phone Contact Type: Prescriptions Contactor: [facility] OP Contactee: Patient Shipping/Pickup: Medicare B Refill?: No Medication Name: Prograf 0.2mg Delivery Method: Ship Delivery Location: Home Signature Required: No Receive/Pickup Date: 06/29/2024 Shipping Address: [address] [place] [address] [address] Contact Info: Specialty (Curlew) [phone] Jakob [phone] [facility] [phone] Raheem [phone] Bedside Delivery ([facility]) [phone] documented in this encounterOS[facility] History of Present illness Narrative* Daihsa aMx DO - 06/17/2024 10:00 AM EDT -Referring [...] Left; Surgeon: Jyoti Bryant MD, PhD; Location: [facility] MAIN OR PLACEMENT NEPHROSTOMY CATHETER PERCUTANEOUS W/ IMAGE GUIDANCE 05/17/2022 Surgeon: Enzo Heart DO; Location: [facility] INTERVENTIONAL RADIOLOGY (VIR) LIVER TRANSPLANT, ORTHOTOPIC N/A 04/12/2020 Laterality: N/A; Surgeon: LU Palma; Location: [facility] SAME DAY SURGERY MAIN OR KIDNEY TRANSPLANT W/O CAP[place] GR[place]DE NEPHRECTOMY N/A 04/12/2020 Laterality: N/A; Surgeon: LU Palma; Location: [facility] SAME DAY SURGERY MAIN OR OTHER [...] 0.2 06/13/2024 Explant Pathology Pathologic Diagnosis A. [place] liver, orthotopic liver transplant resection (1458 gram): [...] up in 1 year. Daisha Max DO Mine Exploration Engineer Gastroenterology, Hepatology and Nutrition [facility] Pager: [phone] * José Miguel Garnica RN - 06/17/2024 10:00 AM EDT Images from the original note were not included. 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 Janitor Caretaker: Anayeli Burt Date of Liver Transplant: 04/13/2020 (Kidney), 04/13/2020 (Liver) 4 years, 2 months post Liver/KidneyTransplant Primary Disease: Hypertensive Nephrosclerosis Transplant Hander In: Erma Roe/ Daisha Max Primary Care physician: [...] LAB AND PHARMACY: None Specified [id number] [place] [address] - [address] [facility] [address] [facility] [address] [facility] [address] [facility] [address] [id number] [place] [address] [address] [facility] [address] [address] [facility] Jakob [address], [address] [facility] [address] ROS and SCREEN: Chest Pain: negative Cough: [...] year: no Do you follow with a Information Manager? yes Do you have a Primary [...] TO ADDRESS WITH PHYSICIAN: documented in this [facility]07-19-2024 Instructions* Patient Instructions* Ashlee Fair RN - 06/17/2024 10:00 AM EDT - No medication changes from a liver standpoint - A MRI Abdomen has been ordered today. Please call central scheduling at [phone] to schedule or take paper copy to your local hospital - Return to clinic 06/16/2025 TRANSPLANT HEPATOLOGY 3, [facility] as scheduled documented in this [facility]07-19-2024 History of Present illness Narrative* Rebeca Gutierrez APRN-ROB - 06/17/2024 9:30 AM EDT Images from the original note were not included. George Styles is a 54 y.o. 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 The HLA mismatch was 1A,2B, 1DR. No longer follows with a local port traffic manager. History of Present Illness: Since George [...] and lab results. Rebeca Gutierrez MSN, RN, PHOTORESIST PRINTER-BC, CCTN Certified Nurse Practitioner [facility] [address] [facility] [address] documented in this encounterOSU [facility]07-19-2024 Instructions* Patient Instructions* JEANNA Hess - 06/17/2024 9:30 AM EDT Tacrolimus - increase to 0.2 mg packet three time per day; goal 3 to 5 ng/dL ; when the itraconazole stops 09/03/2024, reduce to 0.5 mg twice daily. Once your tacrolimus level is 3-5 ng/dL, you may reduce labs to every other week. documented in this encounterOSU [facility]06-27-2024 History of Present illness Narrative* Destiny Jensen - 05/26/2024 4:33 PM EDT [facility]RE[facility]: Call Information: Date and Time of Contact: 05/26/2024 4:35 PM Method of Contact: By Phone Contact Type: Prescriptions Contactor: [facility] OP Contactee: Patient Contact Outcome: Left message and Follow-up Contact Info: Specialty (Yanci) [phone] Jakob [phone] [facility] [phone] Raheem [phone] Bedside Delivery ([facility]) [phone] * Melody Reyez - 05/26/2024 4:33 PM EDT [facility] OUTREACH ADVANCED: Call Information: Date and Time of Contact: 05/30/2024 4:52 PM Method of Contact: By Phone Contact Type: Prescriptions Contactor: Patient Contactee: [facility] OP Shipping/Pickup: Medicare B Refill?: No Medication Name: Myco sod 360mg, Prograf 0.2mg Delivery Method: Ship Delivery Location: Home Signature Required: No Receive/Pickup Date: 06/06/2024 Shipping Address: [address] [place] [address] Contact Info: Specialty (Yanci) [phone] Jakob [phone] [facility] [phone] Raheem [phone] Bedside Delivery ([facility]) [phone] documented in this encounterOSU [facility]06-14-2024 NoteUT Cardiology [facility] Subjective George Styles is a 54 y.o. [...] Disp: , Rfl: t (more content not included)...[facility]04-25-2024 History of Present illness Narrative* Melody Reyez - 03/24/2024 4:12 PM EDT [facility] OUTREACH ADVANCED: Call Information: Date and Time of Contact: 03/24/2024 4:14 PM Method of Contact: By Phone Contact Type: Prescriptions Contactor: [facility] Contactee: Patient Contact Outcome: Left message Shipping/Pickup: Medication Name: Prograf 0.2mg pack Contact Info: Specialty (Curlew) [phone] [facility] [phone] [facility] [phone] Raheem [phone] Bedside Delivery ([facility]) [phone] * Starla Edwards - 03/24/2024 4:12 PM EDT [facility] OUTREACH ADVANCED: Call Information: Date and Time of Contact: 03/28/2024 3:58 PM Method of Contact: By Phone Contact Type: Prescriptions Contactor: [facility] Contactee: Patient Contact Outcome: Left message and Call back later Shipping/Pickup: Medication Name: Mycophenolate, prograf Contact Info: Specialty (Curlew) [phone] [facility] [phone] [facility] [phone] Raheem [phone] Bedside Delivery ([facility]) [phone] * Gabbi Rajput - 03/24/2024 4:12 PM EDT [facility] OUTREACH ADVANCED: Call Information: Method of Contact: By Phone Contact Type: Prescriptions Contactor: Patient Contactee: [facility] Shipping/Pickup: Medicare B Refill?: No Medication Name: Mycopheolate 360mg and Prograf Delivery Method: Ship Delivery Location: Home Signature Required: No Receive/Pickup Date: 04/04/2024 Shipping Address: [address] [place] [address] [address] Contact Info: Specialty (Curlew) [phone] [facility] [phone] [facility] [phone] Raheem [phone] Bedside Delivery ([facility]) [phone] documented in this encounterFirelands [facility]04-25-2024 History of Present illness Narrative* Melody Reyez - 03/24/2024 4:12 PM EDT [facility] RX OUTREACH ADVANCED: Call Information: Date and Time of Contact: 03/24/2024 4:14 PM Method of Contact: By Phone Contact Type: Prescriptions Contactor: [facility] Contactee: Patient Contact Outcome: Left message Shipping/Pickup: Medication Name: Prograf 0.2mg pack Contact Info: Specialty (Curlew) [phone] [facility] [phone] [facility] [phone] Raheem [phone] Bedside Delivery ([facility]) [phone] * Starla Edwards - 03/24/2024 4:12 PM EDT [facility] RX OUTREACH ADVANCED: Call Information: Date and Time of Contact: 03/28/2024 3:58 PM Method of Contact: By Phone Contact Type: Prescriptions Contactor: [facility] Contactee: Patient Contact Outcome: Left message and Call back later Shipping/Pickup: Medication Name: Mycophenolate, prograf Contact Info: Specialty (Curlew) [phone] [facility] [phone] [facility] [phone] Raheem [phone] Bedside Delivery ([facility]) [phone] * Gabbi Rajput - 03/24/2024 4:12 PM EDT [facility] RX OUTREACH ADVANCED: Call Information: Method of Contact: By Phone Contact Type: Prescriptions Contactor: Patient Contactee: [facility] Shipping/Pickup: Medicare B Refill?: No Medication Name: Mycopheolate 360mg and Prograf Delivery Method: Ship Delivery Location: Home Signature Required: No Receive/Pickup Date: 04/04/2024 Shipping Address: [address] [place] [address] [address] Contact Info: Specialty (Curlew) [phone] [facility] [phone] [facility] [phone] [facility] [phone] Bedside Delivery ([facility]) [phone] * Meka Munoz [facility] - 03/24/2024 4:12 PM EDT [...] Within normal limits Contact Info: Specialty (Yanci) [phone] [facility] [phone] [facility] [phone] Raheem [phone] Bedside Delivery ([facility]) [phone] documented in this encounterFirelands [facility]04-03-2024 History of Present illness Narrative* Mckenna Stuart [...] del of broth Contact Info: Specialty (Yanci) [phone] Jakob [phone] [facility] [phone] Raheem [phone] Bedside Delivery ([facility]) [phone] * Andressa Gutiérrez - 03/02/2024 8:14 AM EDT [facility] RX OUTREACH ADVANCED: Call Information: Date and Time of Contact: 03/02/2024 3:49 PM Method of Contact: By Phone Contact Type: Prescriptions Contactor: [facility] Contactee: Patient Contact Outcome: Left message and Follow-up Shipping/Pickup: Medication Name: Myco 360mg and Prograf 0.2mg Contact Info: Specialty (Yanci) [phone] [facility] [phone] [facility] [phone] Raheem [phone] Bedside Delivery ([facility]) [phone] * Mckenna Stuart - 03/02/2024 8:14 AM EDT [facility] RX OUTREACH ADVANCED: Call Information: Date and Time of Contact: 03/02/2024 4:08 PM Method of Contact: By Phone Contact Type: Prescriptions Contactor: [facility] OP Contactee: Patient Shipping/Pickup: Medicare B Refill?: No Medication Name: Myco 360 / prograf 0.2 Delivery Method: Ship Delivery Location: Home Signature Required: No Receive/Pickup Date: 03/03/2024 Shipping Address: [address] [place] [address] [address] Contact Info: Specialty (Curlew) [phone] [facility] [phone] [facility] [phone] Raheem [phone] Bedside Delivery ([facility]) [phone] documented in this encounterFirelands [facility]03-29-2024 History of Present illness Narrative* Marsha [...] the [facility] on 02/26/2024 for initial evaluation of [...] Left; Surgeon: Jyoti Bryant MD, PhD; Location: [facility] MAIN OR PLACEMENT NEPHROSTOMY CATHETER PERCUTANEOUS W/ IMAGE GUIDANCE 05/17/2022 Surgeon: Enzo Heart DO; Location: [facility] INTERVENTIONAL RADIOLOGY (VIR) LIVER TRANSPLANT, ORTHOTOPIC N/A 04/12/2020 Laterality: N/A; Surgeon: LU Palma; Location: [facility] SAME DAY SURGERY MAIN OR KIDNEY TRANSPLANT W/O [place] GR[place] NEPHRECTOMY N/A 04/12/2020 Laterality: N/A; Surgeon: LU Palma; Location: [facility] SAME DAY SURGERY MAIN OR OTHER [...] qd Antithrombotic: no Statin: no ICD: NA SERVICE REPRESENTATIVE: NA CV Test results: ECHOCARDIOGRAM 01/18/2024 (Final) [...] will be BP control. Candie Almaguer M.D. embedded software programmer Advanced Heart Failure Program Division of Cardiovascular Medicine [facility] [email or web address] ph [phone] fax [phone] documented in this encounterOSU [facility]03-29-2024 Instructions* Patient Instructions* Marsha Mckeon RN - 02/26/2024 9:30 AM EDT The following instructions were given today: Labs today Follow up with Dr. Almaguer as needed. Your after visit summary (AVS) is viewable in [facility]. Call RN if you have cardiac questions/concerns M-F 8 to 4:30 ; office # [phone], option 6, then option 2. Guidelines for home management: 1. Continue to monitor weight first thing each morning. 2. Report to the CHF CLINIC ([phone]) any significant weight change. Remember that weight [...] to have labs/tests run outside of the [facility] and you do not hear from us1-2 days after they are performed, you must call us to ensure we received the results. Office fax #[phone]. No news does not necessarily mean that your tests are normal, it could mean we did not get the results. For questions/updates: please provide your name with spelling, date of and question or update All calls are prioritized and responses researched, if possible, prior to calls being returned. Call Scheduling for any appointment/procedure verification or changes [phone], option 7 or [facility] at [phone], option 1. documented in this encounterFirelands [facility]02-24-2024 Nurse Note* Nursing Notes - Terra Heart [...] [facility] listed on discharge summary. Patient denies any unanswered questions at this time. Patient has been discharged with all of their belongings, transported via wheelchair on oxygen to front entrance for brother to transport home on home oxygen supply. [facility]02-24-2024 Miscellaneous Notes* Nursing Notes - Terra Heart [...] understanding on picking up needed prescriptions at [facility] as listed on discharge summary. 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] POST OPERATIVE DIAGNOSIS Post-Op Diagnosis Codes: * High output congestive heart failure [I50.83] PROCEDURE PERFORMED Procedure(s) (LRB): LIGATION ANGIOACCESS AVF (Left) Resection of large aneurysmic vein PRIMARY CLOSURE Yes INTRAOPERATIVE FINDINGS No significant abnormalities SURGEON Surgeons and Role: * Jyoti Bryant MD, PhD - Primary ANESTHESIOLOGIST Anesthesiologist: Celena Tiwari MD; Kehinde Gutierrez MD WHITE SIDEWALL TIRE BUFFER: Raheem Jasso APRN-WHITE SIDEWALL TIRE BUFFER Embedded Software Programmer Assisting: Mini Khan MD SURGICAL STAFF Creeler: Zoila Lawrence RN Relief Creeler: Marimar Saravia RN Relief Scrub: Briseyda Self [...] patient breathing easily. Report received from residential property consultant and report received from anesthesiology. Pt [...] Axillary block. SURGEON(S): Jyoti Bryant MD, PHD PAMPHLET DISTRIBUTOR: Mynor Fall MD ESTIMATED BLOOD LOSS: Minimal. [...] Jyoti Bryant MD, PHD ATTENDING SHANNON/Constanza JOB: [id number] DOC: [id number] * Plan of Care - Tati Ahmadi [...] overnight coverage, Jasper Gastelum MD, via pager #[phone] Pt- George Styles. Sarah 1082. TM1. Was wondering if he can have his Melatonin order increased to 6mg. Per pt, he usually takes 8mg at home. -SAMI Duffy #[phone] Tati Charles RN * Plan of Care - Arelis Mera MD - 01/16/2024 7:27 AM EST Internal Medicine Daily Progress Note Patient: George Styles, 1970, [id number] Physician: Arelis Mera MD, PGY3, Pager #[phone], TM1 service Assessment/Plan: George Styles is a [...] home amlodipine 5mg CAD: non-obstructive CAD on [facility] 2018. - continue home aspirin [...] EST Mr. Styles was admitted to [address] [place] [address]. On admission to [facility], from outside facility a dual RN initial assessment of skin condition was performed by Izzy Gutierrez RN and Leroy Singleton RN. Skin Assessment: Skin within defined limits:Yes Jose Score: 20 Wound Vision Photographs Curator images obtained: No LDA Added: No Based [...] nurses station when available. [facility]* Nursing Notes - Terra [...] is also required.) [facility]02-24-2024 History of Present illness Narrative* Leonel Harris [...] mg Oral Daily Kelvin Smith MD, MBBS assistant professor nurse education Transplant nephrology * Leonel Harris DO - [...] monitor Leonel Harris DO General Surgery Pager [phone] * Girish Salvador RN - 01/22/2024 3:14 PM EST CM went to bedside to talk with patient. Patient states he has home oxygen through [employer]. He uses 2.5 LNC around the clock. Patient states his brother will bring a tank for discharge. Anticipate patient will discharge tomorrow AM. Brother updated. Girish Oro RN, BSN Clinical Construction Site Crossing Guard Please note that I am a float immigration case worker and may not cover the same service every day. Please call the main Case Management office at [phone] for up-to-date coverage. Verified patients identity using [...] Daily Progress Note Patient: George Styles, 1970, [id number] Physician: Yury Ozuna MD, PGY1, Pager #[phone], TM1 service Assessment/Plan: George Styles is a [...] home amlodipine 5mg CAD: non-obstructive CAD on [facility] 2018. - continue home aspirin [...] agreed with the Nutrition plan outlinedin the Station Worker s note. DVT prophylaxis with lovenox [...] in resident note. Kelvin Smith MD, MBBS assistant professor nurse education Transplant nephrology * Kelvin Smith MD, MBBS [...] Oral BID AC Kelvin Smith MD, MBBS assistant professor nurse education Transplant nephrology * Yury Ozuna MD - 01/20/2024 9:31 AM EST Images from the original note were not included. Internal Medicine Daily Progress Note Patient: George Styles, 1970, [id number] Physician: Yury Ozuna MD, PGY1, Pager #[phone], AN7 service Assessment/Plan: George Styles is a 53 [...] home amlodipine 5mg CAD: non-obstructive CAD on [facility] 2018. - continue home aspirin [...] agreed with the Nutrition plan outlinedin the Station Worker s note. DVT prophylaxis with lovenox [...] Provider: Zuly Bruno NP [facility] Other Comments: Patient reported his Last Home Dose of mycophenolate and tacrolimus was on 01/15/24 at 0700. Medications that need removed from Outside Medication Reconciliation list: Please remove all medications. Please feel free to contact me with any further questions. Name: Heidy Chatman Phone #: [phone] Date/Time: 01/19/2024 12:08 PM Time Spent: 15 minutes Associated attestation - Melania Alarcon RP - 01/19/2024 12:41 PM EST Department of Pharmacy Admission Medication Reconciliation Note Patient: George Styles Room/Bed: 1082/A I have reviewed the home medication list with the Manager Testing. The home medication list status is: complete. All changes to the home medication list have been updated in [facility]. Updated CREATIVE LEAD Med List: Prior to Admission Medications Prescriptions [...] any further questions. Name: Melania Ortiz Dorian [facility] Phone #: [phone] Date/Time: 01/19/2024 12:41 PM * Yury Ozuna MD - 01/19/2024 11:10 AM EST Internal Medicine Daily Progress Note Patient: George Styles, 1970, [id number] Physician: Yury Ozuna MD, PGY1, Pager #[phone], ZD2 service Assessment/Plan: Acute Hypoxic Respiratory Insufficiency GARCIA, [...] home amlodipine 5mg CAD: non-obstructive CAD on [facility] 2018. - continue home aspirin [...] agreed with the Nutrition plan outlinedin the Station Worker s note. DVT prophylaxis with lovenox [...] mg Oral Daily Kelvin Smith MD, MBBS assistant professor nurse education Transplant nephrology * Yury Ozuna MD - 01/18/2024 2:53 PM EST Internal Medicine Daily Progress Note Patient: George Styles, 1970, [id number] Physician: Yury Ozuna MD, PGY1, Pager #[phone], TM3 service Assessment/Plan: Updates: - continued diuresis [...] home amlodipine 5mg CAD: non-obstructive CAD on [facility] 2018. - continue home aspirin [...] agreed with the Nutrition plan outlinedin the Station Worker s note. DVT prophylaxis with lovenox [...] in resident note. Kelvin Smith MD, LU assistant professor nurse education Transplant nephrology * BENJY Syed - 01/18/2024 1:42 PM EST Pt known to internal auditor from previous admissions. Provided emotional and spiritual support. Patient shared about: family support, medical course Merchandise Flow Associate provided: - Supportive presence - Active listening - Validation of feelings/emotions Patient encouraged to request a internal auditor as needed. Chaplains are available in-house 24 hours a day and 7 days a week. For urgent matters in [facility], please page [phone]. If the request is not urgent, please enter a consult. Consults are responded to within 24 hours. Senior Staff Merchandise Flow Associate Angie Singh Mdiv, [facility] Kirk [phone] [email or web address] On-call TYLOR: fur grader Raheem: 22/06 Pager TYLOR,KIKE, and Brock Hernandez Pager [phone] 01/18/24 1342 Clinical Encounter Type Visited With Patient Visit Type Introduction Pastoral Time Spent 15 min Referral Other (See Comment) (rounding) Spiritual Assessment Emotional Observation Coping well;Anxiety Hope Observation Specific hope focus Support Observation By Family Interventions Provided Active listening;Supportive presence Facilitated Verbalization of feelings;Identifying support system;Identifying Sources of spiritual well-being Explored Expectations;Treatment decisions Equities Analyst Education Equities Analyst Service Available Yes Educated Patient Outcomes Patient [...] any potential drug interaction. Name: Melania Alarcon [facility] Phone #: [phone] Date/Time: 01/18/2024 9:56 AM * Kasandra Hurt [...] Yes Name and Contact information: Gian Styles ([phone]) Would you like to add additional adult [...] oxygen?: Yes Oxygen Provider and Contact : Assembly Liter-Flow?: 20/01- Order for oxygen use?: unknown [...] patient on Anticoagulation? : No [facility] [id number] - [place] [address] - [address] [facility] [address] [facility] [address] Garment Parts Cutter Hand Does the patient or motor vehicle representative express financial concerns? : No Employed?: Disabled Coping/Stress Concerns about patient s coping and stress?: No Concerns about patient s caregiver s coping and stress?: No Values and Beliefs Cultural or temple practices that may impact discharge planning and/or [...] Plan 1. Identified self and role as Construction Site Crossing Guard. 2. Confirmed and updated demographics and treatment team. 3. Construction Site Crossing Guard will continue to follow with medical team for any other additional discharge needs. Kasandra DON RN [facility] [phone] *Please note I am float CM and work Thursday and Thursday every other week. Please call [phone] for assist in my absence. * Yury Ozuna MD - 01/17/2024 1:57 PM EST Internal Medicine Daily Progress Note Patient: George Styles, 1970, [id number] Physician: Yury Ozuna MD, PGY1, Pager #[phone], EY4 service Assessment/Plan: Updates: - continue diuresis with [...] home amlodipine 5mg CAD: non-obstructive CAD on [facility] 2018. - continue home aspirin [...] ordered 2D echo. Reese Sage MD, SERA Mine Exploration Engineer of Clinical Medicine [facility] documented [facility] Plan of care note* Plan of [...] Guideline (CPG) Outcome: Progressing Flowsheets (Taken 01/23/2024 0673) Related Risk Factors (Acute Pain): surgery Signs and Symptoms (Acute Pain): verbalization of pain descriptors [facility]02-23-[facility]24 Hospital Discharge instructions* Discharge Instructions* Arelis [...] your doctor for further instructions. Please call [phone], Option 1 or [phone] to schedule your appointment with the Heart Failure Clinic. * Discharge Instr - Wound Care* Arelis Mera MD - 01/22/2024 3:08 PM EST You can change your dressing 48 hours from the procedure * Attachments The following attachments cannot be sent through Care Everywhere. 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] POST OPERATIVE DIAGNOSIS Post-Op Diagnosis Codes: * High output congestive heart failure [I50.83] PROCEDURE PERFORMED Procedure(s) (LRB): LIGATION ANGIOACCESS AVF (Left) Resection of large aneurysmic vein PRIMARY CLOSURE Yes INTRAOPERATIVE FINDINGS No significant abnormalities SURGEON Surgeons and Role: * Jyoti Bryant MD, PhD - Primary ANESTHESIOLOGIST Anesthesiologist: Celena Tiwari MD; Kehnide Gutierrez MD WHITE SIDEWALL TIRE BUFFER: Raheem Jasso APRN-WHITE SIDEWALL TIRE BUFFER Embedded Software Programmer Assisting: Mini Khan MD SURGICAL STAFF Creeler: Zoila Lawrence RN Relief Creeler: Marimar Saravia RN Relief Scrub: Briseyda Self Scrub Person: Cinda Mai RN Resident Assisting: Leonel Harris DO Fellow: Miki Mcgowan MD, MBBS COMPLICATIONS None ESTIMATED BLOOD LOSS Minimal SPECIMENS No specimen sent * No specimens in log * Jyoti Bryant MD, PhD January 22, 2024 1:34 PM [facility] Work Phone: 1(664) 545-526202-23-2024 Nurse Note* Nursing Notes - Justin Almendarez RN - 01/22/2024 1:24 PM EST Arrived to PACU assisted by anesthesiology. Connected to monitors. Turned side to side, OR linens removed, repositioned. Airway patent, patient breathing easily. Report received from residential property consultant and report received from anesthesiology. Pt arrived awake. VSS. Sats slightly low. Pulm rehab used. Sats currently 3lpm @ 93%. Pt states he uses CPAP nocturnally. A&Ox4. Nerve block left arm, elevated. [facility]02-23-2024 Surgery Postoperative evaluation and management note* Op [...] Axillary block. SURGEON(S): Jyoti Bryant MD, PHD PAMPHLET DISTRIBUTOR: Mynor Fall MD ESTIMATED BLOOD LOSS: Minimal. [...] Jyoti Bryant MD, PHD ATTENDING AR/MedQ JOB: [id number] DOC: [id number] [facility]02-23-2024 Plan of care note* Plan of Care [...] 1939 Plan Of Care Reviewed With: patient [facility]02-21-2024 Consult note* Starla Morris MD - 01/20/2024 2:15 PM ESTAssociated Order(s): IP CONSULT TO SURGERY - TRANSPLANT (RENAL) Images from the original note were not included. TRANSPLANT SURGERY CONSULT NOTE: Consult: 01/20/2024, 4:03 PM Performing Arts Technicians: Starla Morris MD Reason for Consult: Requesting Dr Carson Bryant for AVF revision/closure given new onset high output heart failure George Styles is a 53 y.o. 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 Mcgowan fellow concrete pavement installer Thank you, Starla Morris MD Associated attestation - Jyoti Bryant MD, PhD - 01/22/2024 10:54 AM EST Beata Bryant MD, PhD, have independently seen and examined the patient, reviewed the labs, discussed the patient with the fellow/resident and agree with the note. [facility] Work Phone: 1(748) 876-407902-21-2024 Consult note* Starla Morris MD - 01/20/2024 2:15 PM ESTAssociated Order(s): IP CONSULT TO SURGERY - TRANSPLANT (RENAL) Images from the original note were not included. TRANSPLANT SURGERY CONSULT NOTE: Consult: 01/20/2024, 4:03 PM Performing Arts Technicians: Starla Morris MD Reason for Consult: Requesting Dr Carson Bryant for AVF revision/closure given new onset high output heart failure George Styles is a 53 y.o. male CURRENT HOSPITALIZATION LOS: Admit Date: 01/16/2024 [facility] Hospital LOS: 4 days George [...] GUIDANCE 05/17/2022 Surgeon: Enzo Heart DO; Location: [facility] INTERVENTIONAL RADIOLOGY (VIR) LIVER TRANSPLANT, ORTHOTOPIC N/A 04/12/2020 Laterality: N/A; Surgeon: LU Palma; Location: [facility] SAME DAY SURGERY MAIN OR KIDNEY TRANSPLANT W/O CAPITAN GRANDE NEPHRECTOMY N/A 04/12/2020 Laterality: N/A; Surgeon: LU [...] seen and staffed with Dr. 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 Await attending attestation for final recommendations. Hank Noel MD Division of Gastroenterology, Hepatology, and Nutrition Clinical Fellow, PGY-5 Pager: [phone] For urgent/stat calls or consults 5pm to 7am, please page the on-call GI fellow on QGenda. [facility]--> Internal Medicine--> Gastroenterology, Hepatology, & Nutrition--> 1st Call Fel Alysia For urgent/stat calls or consults 7am to 5pm during the weekend, please page the on-call GI fellow on QGenda. [facility]--> Internal Medicine--> Gastroenterology, Hepatology, & Nutrition--> All Hep & East Wknd Cons Fel Day For follow up questions regarding this patient 7am to 5pm during the weekday, contact the Hepatology consults fellow or CARLOS A on QGenda. [facility]--> Internal Medicine--> Gastroenterology, Hepatology, & [...] Michael Estrada MD, MSc documented in this encounterFirelands [facility] Nurse Note* Nursing Notes - Paulette Cordon [...] rest, 95-96% when talking/moving. Paulette Cordon RN [facility]02-20-2024 Nurse Note* Nursing Notes - Tati Charles RN - 01/19/2024 12:10 AM EST Paged overnight coverage, Jasper Gastelum MD, via pager #[phone] Pt- JensenGeorge. Sarah 1082. TM1. Was wondering if he can have his Melatonin order increased to 6mg. Per pt, he usually takes 8mg at home. -SAMI Duffy #[phone] Tati Charles RN [facility]02-19-2024 Consult note* Hank Noel MD - 01/18/2024 1:24 PM ESTAssociated Order(s): IP CONSULT TO HEPATOBILIARY [facility] Main Hepatology Consult WebExchange --> IM Consult Serv [facility] --> [facility] Main Hepatology consult service Fellow [...] GUIDANCE 05/17/2022 Surgeon: Enzo Heart DO; Location: [facility] INTERVENTIONAL RADIOLOGY (VIR) LIVER TRANSPLANT, ORTHOTOPIC N/A 04/12/2020 Laterality: N/A; Surgeon: LU Palma; [facility] SAME DAY SURGERY MAIN OR KIDNEY TRANSPLANT W/O CAPITAN 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 Await attending attestation for final recommendations. Hank Noel MD Division of Gastroenterology, Hepatology, and Nutrition Clinical Fellow, PGY-5 Pager: [phone] For urgent/stat calls or consults 5pm to 7am, please page the on-call GI fellow on QGenda. [facility]--> Internal Medicine--> Gastroenterology, Hepatology, & Nutrition--> 1st Call Fel Alysia For urgent/stat calls or consults 7am to 5pm during the weekend, please page the on-call GI fellow on QGenda. [facility]--> Internal Medicine--> Gastroenterology, Hepatology, & Nutrition--> All Hep & East Wknd Cons For follow up questions regarding this patient 7am to 5pm during the weekday, contact the Hepatology consults fellow or CARLOS A on QGenda. [facility]--> Internal Medicine--> Gastroenterology, Hepatology, & [...] Estrada MD, MSc [facility] Work Phone: 1(902) 598-462802-17-2024 Plan of care note* Plan of Care - Arelis Mera MD - 01/16/2024 7:27 AM EST Internal Medicine Daily Progress Note Patient: George Styles, 1970, [id number] Physician: Arelis Mera MD, PGY3, Pager #[phone], TM1 service Assessment/Plan: George Styles is a [...] home amlodipine 5mg CAD: non-obstructive CAD on [facility] 2018. - continue home aspirin [...] MD, on rounds. Signed, Arelis Mera MD [facility]02-17-2024 Nurse Note* Nursing Notes - Izzy Gutierrez RN - 01/16/2024 1:41 AM EST Mr. Styles was admitted to [address] [place] [address]. On admission to [facility], from outside facility a dual RN initial assessment of skin condition was performed by Izzy Gutierrez RN and Leroy Singleton RN. Skin Assessment: Skin within defined limits:Yes Jose Score: 20 Wound Vision Photographs Curator images obtained: No LDA Added: No Based [...] room closest to nurses station when available. [facility]02-17-2024 History and physical note* Timothy Joseph MD - 01/16/2024 1:13 AM EST Images from the original note were not included. 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 White - [phone] Transplant Neph - [phone] Gabapentin 400 MG capsule Sig: Take 1 [...] erythema: Skin: No jaundice or rash Neuro: game designer/creative director 3-7, 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 - continue home aspirin 81mg daily Gout: continue home allopurinol 200mg daily BPH: continue home flomax 0.4mg daily Complexity. Obesity Body mass index is 32.8 kg/m . - Follow with PCP for dietary and lifestyle modifications. Any conditions listed below are present on admission unless otherwise specified. . DVT prophylaxis with lovenox Disposition: admitted to [facility] Code status is Full Staffed [...] Pierson, Luisa Steven, Renee Freed, Daisha Max Janitor Caretaker: José Miguel Garnica All Txt: 04/13/2020 (Kidney), [...] results found for: CYCLOSPORIN , CYCLOSPORIN2 , [id number] , CYCLORAND No results found for: SIROLIMUS [...] request in chart. Reese Sage MD Pager [phone] [facility]02-17-2024 History and physical note* Timothy Joseph MD - 01/16/2024 1:13 AM EST Images from the original note were not included. 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 White - [phone] Transplant Neph - [phone] Gabapentin 400 MG capsule Sig: Take 1 [...] erythema: Skin: No jaundice or rash Neuro: game designer/creative director 3-7, 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 - continue home aspirin 81mg daily Gout: continue home allopurinol 200mg daily BPH: continue home flomax 0.4mg daily Complexity. Obesity Body mass index is 32.8 kg/m . - Follow with PCP for dietary and lifestyle modifications. Any conditions listed below are present on admission unless otherwise specified. . DVT prophylaxis with lovenox Disposition: admitted to [facility] Code status is Full Staffed [...] Pierson, Luisa Steven, Renee Freed, Daisha Max Janitor Caretaker: José Miguel Garnica All Txt: 04/13/2020 (Kidney), [...] results found for: CYCLOSPORIN , CYCLOSPORIN2 , [id number] , CYCLORAND No results found for: SIROLIMUS [...] request in chart. Reese Sage MD Pager [phone] documented in this encounterOS[facility] History of Present illness Narrative* Vladislav [...] Prograf 0.2 MG Contact Info: Specialty (Yanci) [phone] [facility] [phone] [facility] [phone] [facility] [phone] Bedside Delivery ([facility]) [phone] * Anne Choudhury - 01/12/2024 3:09 PM EST [facility] OP RX OUTREACH ADVANCED: Call Information: Date and Time of Contact: 01/25/2024 10:23 AM Method of Contact: By Phone Contact Type: Prescriptions Contactor: [facility] OP Contactee: Patient Contact Outcome: Left message (prograf myco) Contact Info: Specialty (Curlew) [phone] [facility] [phone] [facility] [phone] [facility] [phone] Bedside Delivery ([facility]) [phone] documented in this encounterFirelands [facility] History of Present illness Narrative* Vladislav [...] Prograf 0.2 MG Contact Info: Specialty (Yanci) [phone] [facility] [phone] [facility] [phone] [facility] [phone] Bedside Delivery ([facility]) [phone] * Anne Choudhury - 01/12/2024 3:09 PM EST [facility] OP RX OUTREACH ADVANCED: Call Information: Date and Time of Contact: 01/25/2024 10:23 AM Method of Contact: By Phone Contact Type: Prescriptions Contactor: [facility] OP Contactee: Patient Contact Outcome: Left message (prograf myco) Contact Info: Specialty ([place]) [phone] [facility] [phone] [facility] [phone] [facility] [phone] Bedside Delivery ([facility]) [phone] * Anne Choudhury - 01/12/2024 3:09 PM EST [facility] OP RX OUTREACH ADVANCED: Call Information: Date and Time of Contact: 01/27/2024 10:19 AM Method of Contact: By Phone Contact Type: Prescriptions Contactor: [facility] OP Contactee: Patient Contact Outcome: Left message (myco prograf) Contact Info: Specialty ([place]) [phone] [facility] [phone] [facility] [phone] [facility] [phone] Bedside Delivery ([facility]) [phone] documented in this encounterFirelands [facility] History of Present illness Narrative* Vladislav [...] Prograf 0.2 MG Contact Info: Specialty (Yanci) [phone] [facility] [phone] [place] [facility] [facility] [phone] Raheem [phone] Bedside Delivery ([facility]) [phone] * Anne Choudhury - 01/12/2024 3:09 PM EST [facility] RX OUTREACH ADVANCED: Call Information: Date and Time of Contact: 01/25/2024 10:23 AM Method of Contact: By Phone Contact Type: Prescriptions Contactor: [facility] Contactee: Patient Contact Outcome: Left message (prograf myco) Contact Info: Specialty ([place]) [phone] [facility] [phone] [facility] [phone] Raheem [phone] Bedside Delivery ([facility]) [phone] * Anne Choudhury - 01/12/2024 3:09 PM EST [facility] RX OUTREACH ADVANCED: Call Information: Date and Time of Contact: 01/27/2024 10:19 AM Method of Contact: By Phone Contact Type: Prescriptions Contactor: [facility] Contactee: Patient Contact Outcome: Left message (myco prograf) Contact Info: Specialty ([place]) [phone] [facility] [phone] [facility] [phone] Raheem [phone] Bedside Delivery ([facility]) [phone] * Andressa Gutiérrez - 01/12/2024 3:09 PM EST [facility] RX OUTREACH ADVANCED: Call Information: Date and Time of Contact: 02/01/2024 3:22 PM Contact Type: Prescriptions Contactor: [facility] Contactee: Patient Contact Outcome: Left message Shipping/Pickup: Medication Name: Mycophenolate 360mg and Prograf 0.2mg Pack Contact Info: Specialty ([place]) [phone] [facility] [phone] [facility] [phone] Raheem [phone] Bedside Delivery ([facility]) [phone] documented in this encounterFirelands [facility]02-07-2024 History of Present illness Narrative* Zuly Bruno [...] neurologist wanted to send him to [facility] neurology but it is out of [...] see neurologist [facility] Immunocompromised (CMS/HCC) Hypertension (CMS/[facility]) No change in meds Check echo Relevant Orders Echocardiogram 2D complete Bilateral lower extremity edema Relevant Orders Echocardiogram 2D complete Shortness of breath Check ECHO Relevant Orders Echocardiogram 2D complete Other Visit Diagnoses 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 [facility] Work Phone: 1(533) 685-436211-07-2023 History of Present illness Narrative* Vladislav Dali [...] Prograf 0.2 MG Contact Info: Specialty (Yanci) [phone] [facility] [phone] [facility] [phone] [facility] [phone] Bedside Delivery ([facility]) [phone] * Gabbi Rajput - 10/06/2023 9:30 AM EST [facility] OUTREACH ADVANCED: Call Information: Date and Time of Contact: 10/23/2023 2:00 PM Method of Contact: By Phone Contact Type: Prescriptions Contactor: [facility] Contactee: Patient Contact Outcome: Left message and Call back later Shipping/Pickup: Medication Name: Mycophenolate 360mg and Prograf 0.2mg Contact Info: Specialty ([place]) [phone] [facility] [phone] [facility] [phone] [facility] [phone] Bedside Delivery ([facility]) [phone] documented in this encounterFirelands Regional Medical Center South Campus10-13-2023 Miscellaneous Notes* Nursing Notes - Cheyanne [...] oxygen during the night. pt will pickle sorter his oxygen from [facility], 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 This [...] Patient seen ambulating in the velazquez with SUPERINTENDENT NONSELLING. Patient was mildly short of breath on exertion. At rest patient is currently 96% on RA. Patient expressed only really needing supplemental oxygen when sleeping. Patient stated he is starting to have productions with cough. Patient encouraged to perform incentive spirometer 10 times qhr. Patient demonstrated effective use and verbalized understanding. Aixa Alejandra RN * Plan of Care - Aixa Hloden RN - 09/08/2023 10:54 AM EDT Rnn [...] 3:30 AM EDT Messaged Mainor Loomis, via Desti secure chat, Temp 100.8. His tylenol order [...] short period of time. 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 Episode of [...] 7:30 PM EDT Message Mainor Loomis, via Desti secure chat, Good evening, just an FYI, [...] short period of time. 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 This morning, [...] 8:[address] Loera here also (dry cell and battery assembler) * Nursing Notes - Mary Case RN [...] 08/29/2023 10:49 PM EDT Sent a secure NeuStringIS chat to Rosi LUZ concerning patient's temp [...] PM EDT Mr. Styles was admitted to [address] [place] [address]. On admission to [facility], from home a [...] nurses station when available. documented in this encounterFirelands Regional Medical Center South Campus10-13-2023 History of Present illness Narrative* BENJY Syed - 09/11/2023 2:30 PM EDT Provided follow-up emotional and spiritual support. Patient shared about rosemary of discharge and looking forward to seeing family Merchandise Flow Associate provided: - Supportive presence - Active listening - Validation of feelings/emotions Patient encouraged to request a internal auditor as needed. Chaplains are available in-house 24 hours a day and 7 days a week. For urgent matters in [facility], please page [phone]. If the request is not urgent, please enter a consult. Consults are responded to within 24 hours. Senior Staff Merchandise Flow Associate Angie Singh Mdiv, [facility] Kirk [phone] [email or web address] 22/06 On-call [place]: [phone] 22/06 Pager ,[facility], and Brock Hernandez Pager [phone] 09/11/23 9589 Clinical Encounter Type Visited With Patient Visit Type Follow-up Pastoral Time Spent 15 min Referral Other (See Comment) (rounding) Spiritual Assessment Spiritual Observation Spirituality helpful Emotional Observation Coping well Hope Observation Specific hope focus Support Observation By Family Interventions Provided Active listening;Supportive presence Facilitated Verbalization of feelings Explored Expectations Equities Analyst Education Equities Analyst Service Available Yes Educated Patient Plan of Care Continue Visiting PRN * Dimitrios Gurrola [facility],PharmD - 09/11/2023 10:51 AM EDT Images from the original note were not included. [facility] Note: Non-Verbal Med Rec [facility] received the following discharge prescription(s): Total cost is $0. I have reviewed the Discharge Rx Reconciliation Report. The discharge prescription(s) will be delivered to the patient on 09/11/2023. Dimitrios Gurrola RPh,PharmD Specialty ([place]) [phone] [facility] [phone] [facility] Bedside Delivery [phone] [facility] [phone] [facility] Bedside Delivery [phone] Raheem [phone] [facility] Bedside Delivery [phone] [place] [phone] [place] [phone] * Evan Kelly MD - 09/10/2023 4:09 PM EDT Internal Medicine Daily Progress Note Patient: George Styles, 1970, [id number] Physician: Evan Kelly MD, PGY-1, TM1 service Subjective/Interval History: Patient continues to require oxygen overnight for desaturations. With insurance limitations, only accepting agency to provide home oxygen backed out. After calling them to discuss, Lynn stated she would be willing to have patient drive to their facility to pickle sorter supplies, however they close at 5pm. 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 His k[place]enai kidney disease was noted to be presumed [...] losartan 50mg BID CAD: non-obstructive CAD on [facility] 2018. - continue home aspirin [...] 5.05 (H) 11/19/2018 Reese Sage MD, SERA Mine Exploration Engineer of Clinical Medicine [facility] * Lora Lawrence RN - 09/10/2023 1:45 PM EDT Images from the original note were not included. Final Discharge Planning and Transportation Final Discharge Planning Discharge Disposition: Home Services at Discharge: Outpatient clinical services (ie: lab draws, transfusions, injectables) (Home Oxygen by [facility]) Selected Continued Care - Admitted Since 08/28/2023 Durable Medical Equipment Coordination complete. Service Provider Selected Services Address Phone Fax Patient Preferred [employer] Durable Medical Equipment [address] [address] [phone] Internal Comment last updated by Lora Lawrence RN 09/10/2023 1334 Correct contact information: [employer] [address] [place] [address] [place] [address] swimming pool service technician- you do not need to call at discharge, I already notified the company. Addendum 1523 [facility] notified this CM they are out of patient's insurance area and will not be able to service this patient at time of discharge. Provider notified. Addendum 8845 Dr Kelly called [facility] spoke to Lynn and she said they are willing to accept patient if the patient would drive to the [place] office and pickle sorter the supplies. Patient is willing to do [...] Lora Colón RN, MSN, CCM, CMCN Clinical Construction Site Crossing Guard- [facility] Transplant #[phone] * Matt Kramer RPh,PharmD - 09/10/2023 11:32 [...] dose adjustment Name: Matt Kramer RPh,PharmD Phone: [phone] Date/Time: 09/10/2023 11:33 AM * Lora Lawrence RN - 09/10/2023 11:08 AM EDT This CM sent referral via Aidin for O2 concentrator to 4 agencies Start date today Timer [facility] for [address] [facility] Addendum 1332 One accepting company reserved in Aidin [facility] [address] [place] [address] [place] [address] Lora Colón RN, MSN, CCM, CMCN Clinical Construction Site Crossing Guard- [facility] Transplant #[phone] * RHIANNON [place] - 09/09/2023 3:18 PM EDT NUTRITION FOLLOW-UP Nutrition Plan of Care: 1. Continue current diet order. 2. No oral supplements warranted at this time. 3. Monitor for significant weight changes. Monitor GI, skin integrity. 4. Monitor and encourage po intakes with goal of average po being 75-100%. 5. mechanical maintenance technician to follow. Met with patient today [...] time. Will continue to monitor. RHIANNON [place] Pager:[phone] * Evan White, - 09/09/2023 12:28 PM [...] sign off. Please Epic message or page [phone] with questions. 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 His k[place]en[place] kidney disease was noted to be presumed [...] losartan 50mg BID CAD: non-obstructive CAD on [facility] 2018. 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 His [place] kidney disease was noted to be presumed [...] losartan 50mg BID CAD: non-obstructive CAD on [facility] 2018. - continue home aspirin 81mg daily, holding atorvastatin 20mg daily Gout: continue home allopurinol 200mg daily BPH: continue home flomax 0.4mg daily DVT PPX: SQH Code Status: Full Code Disposition: Pending clinical course. Anticipate eventual discharge home. Discussed with team and attending, Reese Sage MD, on rounds. 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 His [place] kidney disease was noted to be presumed [...] losartan 50mg BID CAD: non-obstructive CAD on [facility] 2019. - continue home aspirin [...] 5.05 (H) 11/19/2018 Reese Sage MD, SERA Mine Exploration Engineer of Clinical Medicine [facility] * Ann Marie [...] to follow. Please Epic message or page [phone] with questions. Ann Marie Haskins MD PGY-4, [...] he continues to improve. Please message via Desti secure chat or page with any questions or concerns. Evan White DO Mine Exploration Engineer Division of Infectious Disease * Evan White [...] to follow. Please Epic message or page [phone] with questions. Evan White DO Transplant Infectious Diseases * Crow Diaz MD - 09/06/2023 1:02 PM EDT Images from the original note were not included. Pulmonary/Critical Care Medicine Daily Progress Note Reason for Consultation: bronch for infectious workup Requesting Physician: Dr. Sage CURRENT HOSPITALIZATION: Admit Date: 08/28/2023 [facility] Hospital LOS: 9 days Impression [...] and interpreted reviewed the radiographic [facility] 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 His [place] kidney disease was noted to be presumed [...] losartan 50mg BID CAD: non-obstructive CAD on [facility] 2019. - continue home aspirin [...] 5.05 (H) 11/19/2018 Reese Sage MD, MADISONN Mine Exploration Engineer of Clinical Medicine [facility] * Crow Diaz MD - 09/05/2023 4:33 PM EDT Images from the original note were not included. Pulmonary/Critical Care Medicine Daily Progress Note Reason for Consultation: bronch for infectious workup Requesting Physician: Dr. Sage CURRENT HOSPITALIZATION: Admit Date: 08/28/2023 [facility] Hospital LOS: 8 days Impression [...] continue to follow along with you Crow Daiz MD Pulmonary and Critical Care Medicine Interval [...] and interpreted reviewed the radiographic data in [facility]. * Fredi Mcfarlane, OT - 09/05/2023 [...] Assessment: Transfer Assessment: Sit to Stand Transfer [place] Level: Sit->Stand: independent Skilled Intervention/Details: Sit->Stand: x1 from EOB, x1 from toilet Stand to Sit Transfer [place] Level: Stand->Sit: independent Skilled Intervention/Details: Stand->Sit: x1 to toilet, x1 to EOB Functional Mobility: Functional Mobility [place] Level: Functional Mobility/Gait: independent Ambulation Distance (Feet): 20 Skilled Intervention/Details - Functional Mobility/Gait: pt performed functional mobility to/from RR w/ no overt LOB Outcome Score(s): [facility]RENT [facility] Daily Activity Inpatient Short Form Putting on/Taking Off Lower Body Clothin - A Little Assistance Bathin - A Little Assistance Toiletin - A Little Assistance Putting on/Taking Off Upper Body Clothin - No Assistance Groomin - No Assistance Eatin - No Assistance [facility] Activity Raw Score: 21 [facility]RENT [facility] Activity Functional Limitation/Modifier: 32.79% Currently Impaired [...] Intact Mobility Assessment: Supine to Sit Mobility [place] Level: Supine->Sit: modified independence Bed Features/Set-up: Supine->Sit: Head of bed elevated Sit to Supine Mobility [place] Level: Sit->Supine: not tested Balance: Sitting Balance [...] environment. Transfer Assessment: Sit to Stand Transfer [place] Level: Sit->Stand: independent Skilled Intervention/Details: Sit->Stand: From EOB x 2 without difficulty. Stand to Sit Transfer [place] Level: Stand->Sit: independent Assistive Device: Stand->Sit: armed chair Skilled Rationale: Verbal cues, Positioning Gait/Functional Mobility: Gait Assessment [place] Level: Gait: stand-by assist Assistive Device: Gait: rollator Ambulation Distance (Feet): 400 Gait Deviations Identified: decreased grace, decreased gait speed Gait Skilled Rationale: verbal, upright posture, increase step length, increase foot clearance Skilled Intervention/Details - Gait: Reasonable foot clearnce without loss of balance but endorsingdyspnea as 6-7/10. Stairs: Stairs Assessment [place] Level: Stair Negotiation: not tested Outcome Score(s): CURRENT [facility] Basic Mobility Inpatient Short Form Turning over in bed: 4 - No Assistance Sitting/standing from chair: 4 - No Assistance Moving from lying on back to sittin - No Assistance Moving to and from bed to chair: 3 - A Little Assistance Walk in hospital room: 3 - A Little Assistance Climbing 3-5 steps with a railin - A Little Assistance [facility] Mobility Raw Score: 21 [facility]RENT [facility] Mobility Functional Limitation/Modifier: 28.97% Currently Impaired [...] Daily Progress Note Patient: George Styles, 1970, [id number] Physician: Evan Kelly MD, PGY-1, TM1 service [...] s/p 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 His k[place] kidney disease was noted to be presumed [...] losartan 50mg BID CAD: non-obstructive CAD on [facility] 2018. - continue home aspirin [...] 5.05 (H) 11/19/2018 Reese Sage MD, MADISONN Mine Exploration Engineer of Clinical Medicine [facility] * Evan White DO [...] to follow. Please Epic message or page [phone] with questions. Evan White DO Transplant Infectious Diseases * Evan Kelly MD - 09/04/2023 1:20 PM EDT Images from the original note were not included. 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 His [place] kidney disease was noted to be presumed [...] losartan 50mg BID CAD: non-obstructive CAD on [facility] 2019. - continue home aspirin [...] P 450 system Reese Sage MD, SERA Mine Exploration Engineer of Clinical Medicine [facility] * Laurel Serrano [...] PhD Internal Medicine and Pediatrics PGY-3 [facility] * Laurel Serrnao MD, PhD - 09/04/2023 9:03 AM EDT [...] PhD Internal Medicine and Pediatrics PGY-3 [facility] * Evan White, DO - 09/03/2023 [...] continue tofollow. Please Epic message or page [phone] with questions. 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 His [place] kidney disease was noted to be presumed [...] 2/2 renal function CAD: non-obstructive CAD on [facility] 2018. 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 His k[place] kidney disease was noted to be presumed [...] 2/2 renal function CAD: non-obstructive CAD on [facility] 2018. - continue home aspirin [...] 5.05 (H) 11/19/2018 Reese Sage MD, SERA Mine Exploration Engineer of Clinical Medicine [facility] * Lora Lawrence [...] Lora Colón RN, MSN, CCM, CMCN Clinical Construction Site Crossing Guard- [facility] Transplant #[phone] * BENJY Syed - 09/02/2023 11:17 AM EDT Made introductory visit with patient. Provided emotional and spiritual support. Patient shared about: - Source of Rosemary: Camping/Fishing/Family - Spirituality/Anabaptist Affiliation: raised Gnosticist - Family Support/history - Experience with illness/hospital course - Hopes for healing/future Merchandise Flow Associate provided: - Supportive presence - Active listening - Validation of feelings/emotions - Pledged prayer Patient encouraged to request a internal auditor as needed. Chaplains are available in-house 24 hours a day and 7 days a week. For urgent matters in [facility], please page [phone]. If the request is not urgent, please enter a consult. Consults are responded to within 24 hours. Senior Staff Merchandise Flow Associate Angie Singh Mdiv, BENJY [place] [phone] [email or web address] 22/06 On-call [place]: [phone] 22/06 Pager ,BS, and Brock Hernandez Pager [phone] 09/02/23 1111 Clinical Encounter Type Visited With Patient Visit Type Introduction Pastoral Time Spent 15 min Referral Other (See Comment) (rounding) Spiritual Assessment Spiritual Observation Spirituality helpful Emotional Observation Coping well Hope Observation Specific hope focus Support Observation By Family Interventions Provided Active listening;Supportive presence Facilitated Verbalization of feelings Explored Expectations Equities Analyst Education Equities Analyst Service Available Yes Educated Patient Outcomes Patient [...] goal of average po being 100%. 5. mechanical maintenance technician to follow. George Styles is a 53 y.o. 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 His [place] kidney disease was noted to be presumed hepatorenal syndrome. His post- transplant course was noteworthy for nephrostomy tube (05/17/2022-09/10/2022) due to concern for ureteral stone. He presents as a direct admission for fever, cough, for infectious workup. Pt unavailable and information obtained via chart review Guest Service Agent Screening Pt's appetite is good. Pt with [...] Will continue to monitor. 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 His k[place] kidney disease was noted to be presumed [...] 2/2 renal function CAD: non-obstructive CAD on [facility] 2018. - continue home aspirin [...] as outlined above. Reese Sage MD Pager [phone] * Heidy Chatman - 09/01/2023 2:00 PM [...] Supply: 90 Refills: 0 Provider: 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 Pharmacy: [facility] Other Comments: Patient reported his Last Home Dose of mycophenolate & tacrolimus was on 08/28/23 at 0900. Patient reported he was taking Bactrim and benzonatate for fevers and a cough he was having. Please feel free to contact me with any further questions. Name: Heidy Chatman Phone #: [phone] Date/Time: 09/01/2023 2:01 PM Time Spent: 15 minutes Associated attestation - Matt Kramer RPh,Frankie - 09/01/2023 2:28 PM EDT Department of Pharmacy Admission Medication Reconciliation Note Patient: George Styles Room/Bed: 1062/A I have reviewed the home medication list with the Manager Testing. All changes to the home medication list have been updated in IHIS. Updated CREATIVE LEAD Med List: Prior to Admission Medications Prescriptions [...] questions. Name: Matt Kramer RPh,PharmD Phone #: [phone] Date/Time: 09/01/2023 2:28 PM * Evan Feliz [...] crypto antigen, EBV PCR -follow pending histo, [id number] labs These recommendations were discussed with the primary team. Transplant ID (Team 3) will continue tofollow. Please Epic message or page [phone] with questions. 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 His [place] kidney disease was noted to be presumed [...] 2/2 renal function CAD: non-obstructive CAD on [facility] 2018. - continue home aspirin [...] 5.05 (H) 11/19/2018 Reese Sage MD, SERA Mine Exploration Engineer of Clinical Medicine [facility] * Kasandra Hurt [...] Yes Name and Contact information: Gian Styles ([phone]) Reviewed and Updated in Demographics? : Yes [...] patient on Anticoagulation? 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 : No Employed?: Disabled Coping/Stress Concerns about patient s coping and stress?: No Concerns about patient s caregiver s coping and stress?: No Values and Beliefs Cultural or temple practices that may impact discharge planning and/or [...] Plan 1. Identified self and role as Construction Site Crossing Guard. 2. Confirmed and updated demographics and treatment team. 3. Construction Site Crossing Guard will continue to follow with medical team/pt for any other additional discharge needs. Kasandra DON RN [facility] [phone] *Please note I am float CM and work Thursday and Thursday every other week. Please call [phone] for assist in my absence. 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 His k[place] kidney disease was noted to be presumed [...] 2/2 renal function CAD: non-obstructive CAD on [facility] 2018. 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 His [place] kidney disease was noted to be presumed [...] losartan 50mg BID CAD: non-obstructive CAD on [facility] 2018. - continue home aspirin 81mg daily, atorvastatin 20mg daily Gout: continue home allopurinol 200mg daily BPH: continue home flomax 0.4mg daily DVT PPX: SQH Code Status: Full Code Disposition: Pending clinical course. Anticipate eventual discharge home. Discussed with team and attending, Reese Sage MD, on rounds. Signed, Laurel Serrano MD, PhD documented in this encounterFirelands Regional Medical [facility]10-12-[facility]23 Hospital Discharge instructions* Discharge Instructions* Laurel Serrano [...] sleep doctor. You will need to pickle sorter the oxygen concentrator when you leave the [...] focus on healthy foods. documented in this encounterFirelands Regional Medical Center [facility] Campus10-03-2023 Consult note* Izzy Loera MD - 09/01/2023 12:26 PM EDTAssociated Order(s): IP CONSULT TO PULMONOLOGY Pulmonary Medicine Inpatient Consultation Reason for Consultation: bronch for infectious workup Requesting Physician: Dr. Sage Pulmonary Attending Physician: Dr. Diaz CURRENT HOSPITALIZATION: Admit Date: 08/28/2023 [facility] Hospital LOS: 4 days Impression/Recommendations: [...] Recommendations: - Plan to bronch tomorrow morning. NPO@SC, order placed - would repeat HIV, last [...] short period of time. 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 Other histories as documented in the [...] contacts. He traveled to [place] to [facility] in May. REVIEW OF SYSTEMS A [...] GUIDANCE 05/17/2022 Surgeon: Enzo Heart DO; Location: [facility] INTERVENTIONAL RADIOLOGY (VIR) LIVER TRANSPLANT, ORTHOTOPIC N/A 04/12/2020 Laterality: N/A; Surgeon: LU Palma; Location: [facility] SAME DAY SURGERY MAIN OR KIDNEY TRANSPLANT W/O CAPITAN GRANDE NEPHRECTOMY N/A 04/12/2020 Laterality: N/A; Surgeon: LU Palma; Location: [facility] SAME DAY SURGERY MAIN OR OTHER [...] Ko MD I can be reached via Desti secure message (preferred) or Pager #[phone] documented in this encounterFirelands Regional Medical Center South Campus09-29-2023 History and physical note* Aric Turner MD - 08/28/2023 6:14 PM EDT Images from the original note were not included. Internal Medicine Admission History & Physical Patient: George Styles, 1970, [id number] Physician: Airc Turner MD, PGY1, Pager #[phone], [place] service Date of face to face patient [...] So he went to see the transplant port traffic manager. He was found elevated Cr and [...] Appetite is ok now. Urine is about 9860-1064 ml every day. 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 His [place] kidney disease was noted to be presumed [...] Urinary histoplasmosis - PJP, candid PCR - Performing Arts Technicians transplant ID Acute Kidney Injury with Kidney [...] losartan 50mg BID CAD: non-obstructive CAD on [facility] 2018. - continue aspirin 81mg [...] Pierson, Luisa Steven, Renee Freed, Daisha Max Janitor Caretaker: José Miguel Garnica All Txt: 04/13/2020 (Kidney), [...] results found for: CYCLOSPORIN , CYCLOSPORIN2 , [id number] , CYCLORAND No results found for: SIROLIMUS [...] Rest as above. Reese Sage MD Pager [phone] documented in this encounterU [facility]09-29-[facility] History of Present illness Narrative* Rochelle Ribeiro RN - 08/28/2023 2:15 PM EDT Images from the original note were not included. 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 Janitor Caretaker: Anayeli Burt Date of Liver Transplant: 04/13/2020 (Kidney), 04/13/2020 (Liver) 3 years 4 months post Liver/Kidney Transplant Primary Disease: Hypertensive Nephrosclerosis Transplant Hander In: Erma Roe/ Daisha Max Primary Care physician: [...] aspirin, and faMOTIdine None Specified Preferred Lab: [facility] Change in lab frequency / new [...] every 12 hours. ADDITIONAL INFORMATION: None Specified, [id number] [place] [address] - [address] [facility] [address] [facility] [address] [facility] [address] [facility] [address] [facility][id number] [place] [address] [address] [place] [address] [facility] [address] [facility] [address] [facility] [address], [address] [place] [address] ROS and SCREEN: Chest Pain: negative Cough: [...] EDT I saw George Styles at the [facility] on 08/28/2023. Patient is a 53 y.o. 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 His [place] kidney disease was noted to be presumed [...] GUIDANCE 05/17/2022 Surgeon: Enzo Heart DO; Location: [facility] INTERVENTIONAL RADIOLOGY (VIR) LIVER TRANSPLANT, ORTHOTOPIC N/A 04/12/2020 Laterality: N/A; Surgeon: LU Palma; Location: [facility] SAME DAY SURGERY MAIN OR KIDNEY TRANSPLANT W/O CAPITAN GRANDE NEPHRECTOMY N/A 04/12/2020 Laterality: N/A; Surgeon: LU Palma; Location: [facility] SAME DAY SURGERY MAIN OR OTHER [...] you have any questions. Steve Munoz MD boiler technician Division [facility] documented in this encounterOSMansfield Hospital09-29-2023 Instructions* Patient Instructions* Mainro Busby RN - 08/28/2023 2:15 PM EDT - Admission for fevers, cough, and night sweats documented in this encounterFirelands Regional Medical [facility]09-20-2023 History of Present illness Narrative* Andressa [...] No Mailing/Pickup Date: 08/25/2023 Shipping Address: [address] [place] [address] Contact Info: Specialty ([place]) [phone] Jakob [phone] [facility] [phone] Raheem [phone] Bedside Delivery ([facility]) [phone] documented in this encounterFirelands Regional Medical Center [facility]07-14-2023 History of Present illness Narrative* JEANNA Hess - 06/12/2023 3:00 PM EDT Images from the original note were not included. George Styles is a 53 y.o. 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 The HLA mismatch was 1A,2B, 1DR. No longer follows with a local port traffic manager. History of Present Illness: Since George [...] and lab results. Rebeca Gutierrez MSN, RN, PHOTORESIST PRINTER-BC, CCTN Certified Nurse Practitioner Comprehensive Transplant Center [facility] [address] [facility] [address] documented in this encounterOSU [facility]07-14-2023 Instructions* Patient Instructions* JEANNA Hess - 06/12/2023 3:00 PM EDT No change in immunosuppression. documented in this encounterFirelands Regional Medical Center [facility]07-12-2023 History of Present illness Narrative* Anne Choudhury - 06/10/2023 3:16 PM EDT [facility] ADVANC[facility]: Call Information: Method of Contact: By Phone Contact Type: Prescriptions Contactor: [facility] Contactee: Patient Contact Outcome: Left message Shipping/Pickup: Medication Name: Mycophenolate sod 180 mg Contact Info: Specialty ([place]) [phone] [facility] [phone] [facility] [phone] Ra[place]em [phone] Bedside Delivery ([facility]) [phone] * Negra Burks - 06/10/2023 3:16 PM EDT [facility]: Call Information: Date and Time of Contact: 06/12/2023 9:43 AM Method of Contact: By Phone Contact Type: Prescriptions Contactor: [facility] Contactee: Patient Contact Outcome: Left message and Follow-up Shipping/Pickup: Medicare B Refill?: No Medication Name: Myco 180 Contact Info: Specialty ([place]) [phone] [facility] [phone] [facility] [phone] Ra[place]em [phone] Bedside Delivery ([facility]) [phone] * Mikaela Pierre - 06/10/2023 3:16 PM EDT [facility]: Call Information: Date and Time of Contact: 06/12/2023 10:08 AM Method of Contact: By Phone Contact Type: Prescriptions Contactor: [facility] Contactee: Patient Shipping/Pickup: Medicare B Refill?: No Medication Name: Mycophenolate 180mg DR Delivery Method: Air Delivery Location: Home Signature Required: No Mailing/Pickup Date: 06/17/2023 Shipping Address: [address] [address] Contact Info: Specialty ([place]) [phone] Jakob [phone] [facility] [phone] Raheem [phone] Bedside Delivery ([facility]) [phone] documented in this encounterFirelands Regional Medical Center [facility]04-13-2023 History of Present illness Narrative* Anne Choudhury [...] No Mailing/Pickup Date: 03/16/2023 Shipping Address: [address] [place] [address] Contact Info: Specialty ([place]) [phone] Jakob [phone] [facility] [phone] Ra[place]em [phone] Bedside Delivery ([facility]) [phone] * Andressa Gutiérrez - 03/12/2023 10:34 AM [...] Required: No Mailing/Pickup Date: 03/19/2023 Shipping Address: [address] [place] [address] [address] Contact Info: Specialty ([place]) [phone] [facility] [phone] [facility] [phone] Raheem [phone] Bedside Delivery ([facility]) [phone] documented in this encounterFirelands Regional Medical Center [facility]04-11-2023 History of Present illness Narrative* Vladislav Mcnally - 03/10/2023 11:58 AM EDT [facility]: Call Information: Date and Time of Contact: 03/10/2023 12:00 PM Method of Contact: By Phone Contact Type: Prescriptions Contactor: [facility] Contactee: Patient Contact Outcome: Left message and Call back later Shipping/Pickup: Medication Name: Mycophenolate ; Tacrolimus Contact Info: Specialty ([place]) [phone] [facility] [phone] [facility] [phone] Ra[place]em [phone] Bedside Delivery ([facility]) [phone] documented in this encounterOSU [facility]04-11-2023 History of Present illness Narrative* Vladislav Mcnally - 03/10/2023 11:58 AM EDT [facility]RE[facility] ADVANCED: Call Information: Date and Time of Contact: 03/10/2023 12:00 PM Method of Contact: By Phone Contact Type: Prescriptions Contactor: [facility] Contactee: Patient Contact Outcome: Left message and Call back later Shipping/Pickup: Medication Name: Mycophenolate ; Tacrolimus Contact Info: Specialty ([place]) [phone] [facility] [phone] [facility] [phone] Raheem [phone] Bedside Delivery ([facility]) [phone] * Anne Choudhury - 03/10/2023 11:58 AM EDT [facility]RE[facility] ADVANCED: Call Information: Date and Time of Contact: 03/12/2023 10:32 AM Method of Contact: By Phone Contact Type: Prescriptions Contactor: [facility] Contactee: Patient Contact Outcome: Left message Shipping/Pickup: Medication Name: Mycophenolate sodium (MYFORTIC) 180 MG Tab tacrolimus 0.5 mg Contact Info: Specialty ([place]) [phone] [facility] [phone] [facility] [phone] Raheem [phone] Bedside Delivery ([facility]) [phone] documented in this encounterFirelands Regional Medical Center [facility]02-17-2023 History of Present illness Narrative* Daisha [...] GUIDANCE 05/17/2022 Surgeon: Enzo Heart DO; Location: [facility] INTERVENTIONAL RADIOLOGY (VIR) LIVER TRANSPLANT, ORTHOTOPIC N/A 04/12/2020 Laterality: N/A; Surgeon: LU Palma; Location: [facility] SAME DAY SURGERY MAIN OR KIDNEY TRANSPLANT W/O CAPITAN GRANDE NEPHRECTOMY N/A 04/12/2020 Laterality: N/A; Surgeon: LU Palma; Location: [facility] SAME DAY SURGERY MAIN OR OTHER [...] 0.3 12/29/2022 Explant Pathology Pathologic Diagnosis A. [place] liver, orthotopic liver transplant resection (1458 gram): [...] A/P with IV contrast (06/27/2022): 1. Both kootenai kidneys are atrophic with improvement in right-sided [...] frequent nighttime urination, etc). Daisha Max DO Mine Exploration Engineer Gastroenterology, Hepatology and Nutrition [facility] Pager: [phone] * José Miguel Garnica RN - 01/16/2023 9:40 AM EST Images from the original note were not included. 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 Janitor Caretaker: Anayeli Burt Date of Liver Transplant: 04/13/2020 (Kidney), 04/13/2020 (Liver) 2 years, 8 months post Liver/KidneyTransplant Primary Disease: Hypertensive Nephrosclerosis Transplant Hander In: Steve Munoz Primary Care physician: Zuly Bruno [...] levels: No results found for: CYCLOSPORIN, CYCLOSPORIN2, [id number], CYCLORAND No components found for: CYCLOSPORINE, 2HR [...] hours. ADDITIONAL INFORMATION: None Specified [id number] [place] [address] - [address] [address] [facility] [address] [place] [address] [id number] [place] [address] [address] [facility] [address] [facility] [address], [address] [place] [address] ROS and SCREEN: Chest Pain: negative Cough: negative SOB: negative Abd Pain: negative Nausea: negative Vomiting: negative Diarrhea: negative Constipation: negative Dysuria: negative Edema: negative Tremors: negative Headaches: negative Wound issues: negative Alcohol consumption: no Cigarette smoking, smokeless tobacco or vaping/e-cigarette use: no Marijuana (any form), CBD oil or street drug use: no QUESTIONS OR CONCERNS TO ADDRESS WITH PHYSICIAN: documented in this [facility]02-17-2023 Instructions* Patient Instructions* José Miguel Garnica RN - 01/16/2023 9:40 AM EST - Labs Every 2 months - Discuss night time urination with your PCP - Schedule Colonoscopy through PCP - Follow up in 1 year documented in this [facility]10-12-2022 History of Present illness [...] and no hydronephrosis. Some reflux up the kootenai right ureter but good drainage of both transplant and k[place]enai ureter to the bladder. Nephrostomy tube was [...] transplant, orthotopic (N/A, 04/12/2020); kidney transplant w/o k[place]enai nephrecto my (N/A, 04/12/2020); and placement nephrostomy [...] Negative for , diarrhea, constipation Genitourinary: See NEZ PERCE Neurological: Negative for headaches. Lymph/Heme: Negative for [...] x 4, Normal strength. No edema. Skin: [place], warm, and dry. There are no rashes [...] and no hydronephrosis. Some reflux up the [place]ai right ureter but good drainage of both transplant and [place] ureter to the bladder. Nephrostomy tube was [...] Ryan Yepez MD 09/10/22 documented in this encounterFirelands Regional Medical [facility]08-08-2022 History of Present illness Narrative* Tati Langston [...] assisted off the table and escorted to airline lounge receptionist where they made a follow up. [...] to have transplant ureter with anastomosis to k[place]enai right ureter. Nephrostogram without filling defects and no hydronephrosis. Some reflux up the [place] right ureter but good drainage of both transplant and [place]ai ureter to the bladder. Nephrostomy tube was removed without issue. Patient does have some sensation of incomplete bladder emptying and occasional sensation in his right flank. PVR today was 33cc. Will re-evaluate urinary symptoms at next appointment. --continue Flomax --RTC in one month flow flow/PVR/IPSS Patient to call with any additional questions or concerns. Ryan Yepez MD 07/07/22 documented in this encounterFirelands Regional Medical Center [facility]07-29-2022 History of Present illness Narrative* Ryan [...] transplant, orthotopic (N/A, 04/12/2020); kidney transplant w/o k[place]enai nephrecto my (N/A, 04/12/2020); and placement nephrostomy [...] Negative for , diarrhea, constipation Genitourinary: See NEZ PERCE Neurological: Negative for headaches. Lymph/Heme: Negative for [...] x 4, Normal strength. No edema. Skin: [place], warm, and dry. There are no rashes [...] yo male with a DDRT to the [facility] in 2019. Nephrostomy tube placed 05/17 [...] bag if needed. documented in this encounterOSU [facility]07-29-2022 History and physical note* JEANNA Padilla - 06/27/2022 10:40 AM EDT Patient was evaluated in clinic as a nurse visit. Please refer to Rena Brewster's note. [facility] Work Phone: [phone] 108-720807-29-2022 History and physical note* JEANNA Padilla - 06/27/2022 10:40 AM EDT Patient was evaluated in clinic as a nurse visit. Please refer to Rena Brewster's note. documented in this encounterOSU [facility]07-29-2022 History of Present illness Narrative* Rena Brewster RN - 06/27/2022 10:40 AM EDT TEACHING REGARDING TX NEPH COMPLETED-NEPH TUBE SITE DRY AND INTACT-CLEAR YELLOW URINE IN THE BAG-INSTRUCTED ABOUT FLUSHING, BAG CHANGING ETC. NUMEROUS QUESTIONS ASKED AND ANSWERED-VERBALIZED UNDERSTANDING documented in this encounterOSU [facility]07-20-2022 NoteEXAMINATION: CT ABD/PELVIS WO CON HISTORY: [...] mass or enlargement. KIDNEYS: Marked atrophy of kootenai kidneys. Transplant right pelvic kidney with percutaneous [...] Electronically authenticated by: MÓNICA JIMENEZ Date: 2022-06-18 13:53[facility]07-14-2022 Instructions* Patient Instructions* Anayeli Christianson RN - 06/12/2022 3:21 PM EDT Do not take apart/disrupt nephrostomy tube system. Call Interventional Radiology and/or on-call transplant nurse [phone] for instruction if need to flush (clot or decreased flow). Take cipro 500mg, one tablet, twice per day for 14 days documented in this encounterFirelands Regional Medical Center [facility]07-14-2022 History of Present illness Narrative* Roxanne Grimes RN - 06/12/2022 2:15 PM EDT Images from the original note were not included. 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 Janitor Caretaker: Anayeli Burt Date of Liver Transplant: 04/13/2020 (Kidney), 04/13/2020 (Liver) 2 year, 1 months post Liver/Kidney Transplant Primary Disease: Hypertensive Nephrosclerosis Transplant Hander In: Steve Munoz Primary Care physician: Zuly Bruno [...] obstructing kidney stone in renal graft at [facility]. Percutaneous Neph Tube placed * Anayeli Christianson [...] PREFERRED LAB AND PHARMACY: None Specified [facility] [place] [address] - [address] [address] [facility] [address], [address] [facility] [address] [id number] [place] [address] [address] [facility] [address] [facility] [address] [facility] [address], [address] [facility] [address] ROS and SCREEN: Chest Pain: negative Cough: [...] I saw George Feliz Jensen at the [facility] on 06/12/2022. Patient is a 52 y.o. 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 His [place] kidney disease was noted to be presumed [...] GUIDANCE 05/17/2022 Surgeon: Enzo Heart DO; Location: [facility] INTERVENTIONAL RADIOLOGY (VIR) LIVER TRANSPLANT, ORTHOTOPIC N/A 04/12/2020 Laterality: N/A; Surgeon: LU Palma; Location: [facility] SAME DAY SURGERY MAIN OR KIDNEY TRANSPLANT W/O CAPITAN GRANDE NEPHRECTOMY N/A 04/12/2020 Laterality: N/A; Surgeon: LU Palma; Location: [facility] SAME DAY SURGERY MAIN OR OTHER [...] you have any questions. Steve Munoz MD boiler technician Division of Nephrology [facility] documented in this encounterOSU [facility]07-06-2022 Instructions* Patient Instructions* TATI GROVE - 06/04/2022 11:04 AM EDT Thank you for joining us for your neph tube follow up. We recommend routine exchange every 8-10 weeks. Please reach out at [phone] when it is time to set your next routine exchange. Thank you IR clinic documented in this encounterU [facility]07-06-2022 History of Present illness Narrative* Litzy [...] to schedule exchange.Verbalized understanding. documented in this encounterFirelands Regional Medical [facility]06-21-2022 Note* Nursing Notes - Leon Cook [...] Leon Cook RN [facility]06-21-2022 Miscellaneous Notes* Nursing Notes - Leon [...] provide teaching before his discharge Leon RN #[id number] Leon Cook RN * Plan of Care [...] - 05/19/2022 12:44 PM EDT Discussed with [facility] re: possible urine culture performed at [...] with questions. Evan Byrd MD Urology, PGY-2 #[id number] * Certification - Nishant Gamez MD - [...] Added:N Kallie Lorenzana RN documented in this encounterOSMansfield Hospital06-21-2022 Note* Plan of Care - Leon [...] Adequate for Discharge [facility]06-21-2022 Note* Nursing Notes - Leon Cook RN - 05/20/2022 2:01 PM EDT Paged Vera Dillard MD R10 [address] George Please let's have a clear order on how the nephrostomy site dressing need to be changed when the patient goes home so we provide teaching before his discharge Leon RN #[id number] Leon Cook RN [facility]06-21-2022 History of Present illness Narrative* Yanira Her RPh,PharmD - 05/20/2022 12:01 PM EDT Images from the original note were not included. [facility] Note: [facility] the following [facility] prescription(s): Medication reconciliation was completed with comparison to discharge reconciliation report. The prescription(s) will be delivered to the patient's bedside on 05/20/22. Total cost is $0. Yanira Her RPh,PharmD [facility] [facility] ([facility] [phone] [facility] [phone] [facility] [phone] [place] [phone] [place] [phone] [facility] [phone] * Maxi Pringle MD - 05/19/2022 12:32 PM EDT Attending I saw George Styles at the [facility] on 05/19/2022. I saw and [...] Evan Bennett MD 650 mg at 05/18/22 0343 allopurinol (ZYLOPRIM) tablet 100 mg 100 mg [...] injection 5,000 Units 5,000 Units Subcutaneous Q8H Nsihant Gamez MD 5,000 Units at 804 iodixanol [...] Daily Progress Note Patient: George Styles, 1970, [id number] Physician: Liam Julian MD, PGY-3, Pager #[phone], [email or web address] Subjective/Interval History: No acute events overnight. Passed [...] MD (Peggy) Division of Hospital Medicine Pager [phone] * Maxi Pringle MD - 05/18/2022 7:39 AM EDT Attending I saw George Styles at the [facility] on 05/18/2022. 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 Daya (Aggie Saldana MD Division of Hospital Medicine Pager [phone] * Nishant Gamez MD - 05/17/2022 8:04 AM EDT Internal Medicine Daily Progress Note Patient: George Styles, 1970, [id number] Physician: Nishant Gamez MD, PGY2, Pager #[phone], [email or web address] Subjective/Interval History: Worsening creatinine this morning with [...] MD (Peggy) Division of Hospital Medicine Pager [phone] * Maxi Pringle MD - 05/17/2022 7:07 AM EDT Attending I saw George Styles at the [facility] on 05/17/2022. I saw and [...] review of chart and discussion withtreatment team, Construction Site Crossing Guard has not identified needs at this time. [...] EDT Introduced self and role of the internal auditor to patient. Provided emotional and spiritual support and the patient responded by sharing their experience and discussed the following: - Spirituality/Anabaptist Affiliation: As a kid attended [employer] but not a strong identity now - Family support - pt's brothers live close by Merchandise Flow Associate provided: - Supportive presence - Active listening - Validation of feelings/emotions Patient encouraged to request a internal auditor as needed. Chaplains are available in-house 24 hours a day and 7 days a week. For urgent matters in [facility], please page [phone]. If the request is not urgent, please enter a consult. Consults are responded to within 24 hours. Angie Singh Mdiv, [facility] Trans[facility] [place] [phone] Merchandise Flow Associate [facility] Merchandise Flow Associate Kirk [phone] [email or web address] 22/06 [facility] Pager [phone] 22/06 Pager ,BS, and Brock 1500 22/06 Raheem Pager [phone] 05/16/22 1129 Clinical Encounter Type Visited With Patient Visit Type Introduction Pastoral Time Spent 15 min Referral Other (See Comment) (Rounding) Spiritual Assessment Spiritual Observation Spirituality helpful;Identifies as (see comment) (Lutheran) Emotional Observation Coping well Hope Observation Hopeful and accepting Support Observation By Family Interventions Provided Active listening;Supportive presence Facilitated Verbalization of feelings;Sharing of life story;Identifying support system Explored Expectations Equities Analyst Education Equities Analyst Service Available Yes Educated Patient Outcomes Patient Outcomes Articulated purpose/meaning Plan of Care Continue Visiting PRN * Nishant Gamez MD - 05/16/2022 8:27 AM EDT Internal Medicine Daily Progress Note Patient: George Styles, 1970, [id number] Physician: Nishant Gamez MD, PGY2, Pager #[phone], [id number] Subjective/Interval History: Overall feeling okay this morning. 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 [...] Supervision Transfer Assessment: Sit to Stand Transfer [place] Level: Sit->Stand: independent Skilled Intervention/Details: Sit->Stand: x1 from EOB Stand to Sit Transfer [place] Level: Stand->Sit: supervision Assistive Device: Stand->Sit: armed chair Skilled Rationale: Controlled descent for sitting, Verbal cues Gait/Functional Mobility: Gait Assessment [place] Level: Gait: supervision Assistive Device: Gait: gait belt Gait Distance (feet): 200 Gait Deviations Identified: decreased grace, decreased step length, decreased stride length Gait Skilled Rationale: verbal, upright posture Skilled Intervention/Details - Gait: Pt with steady gait without LOB or complaints of SOB. Stairs: Stairs Assessment [place] Level: Stair Negotiation: stand-by assist Assistive Device: Stair Negotiation: gait belt, left rail (ascending) Number of stairs: 9 Stairs Skilled Rationale: reciprocal pattern Outcome Score(s): CURRENT [facility] Basic Mobility Inpatient Short Form Turning over in bed: 4 - No Assistance Sitting/standing from chair: 4 - No Assistance Moving from lying on back to sittin - No Assistance Moving to and from bed to chair: 4 - No Assistance Walk in hospital room: 3 - A Little Assistance Climbing 3-5 steps with a railin - A Little Assistance CURRENT [facility] Mobility Raw Score: 22 CURRENT [facility] Mobility Functional Limitation/Modifier: 20.91% Currently Impaired [...] community) 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 IADL History IADLs: independent Primary Language: Maldivian Home Management Skills: independent Meal Prep Responsibility: [...] Assessment: Transfer Assessment: Sit to Stand Transfer [place] Level: Sit->Stand: independent Skilled Rationale: Cues for increased safety Skilled Intervention/Details: Sit->Stand: x1 EOB Stand to Sit Transfer [place] Level: Stand->Sit: supervision Assistive Device: Stand->Sit: gait belt, armed chair Skilled Rationale: Verbal cues, Controlled descent for sitting, Cues for increased safety Skilled Intervention/Details: Stand->Sit: cues for hand placement and controlled descent Functional Mobility: Functional Mobility [place] Level: Functional Mobility/Gait: stand-by assist Assistive Device: Functional Mobility/Gait: gait belt Functional Mobility Distance: Distance needed for limited community mobility Functional Mobility Deficits: Activity tolerance, Balance, Decreased step length, Generalized weakness Functional Mobility Skilled Rationale: Verbal cues, Facilitate postural control Skilled Intervention/Details - Functional Mobility/Gait: cues for upright posture Outcome Score(s): CURRENT -[facility] Daily Activity Inpatient Short Form Putting on/Taking Off Lower Body Clothin - A Little Assistance Bathin - A Little Assistance Toiletin - A Little Assistance Putting on/Taking Off Upper Body Clothin - No Assistance Groomin - No Assistance Eatin - No Assistance CURRENT AM-[facility] Activity Raw Score: 21 CURRENT [...] DAY SURGERY MAIN OR KIDNEY TRANSPLANT W/O CAPITAN GRANDE NEPHRECTOMY N/A 04/12/2020 Laterality: N/A; Surgeon: LU [...] by: Mel Norman OT, OTR/L License #: [id number] pager # [phone] 05/20/2022 Upon discontinuation of Acute Care Occupational Therapy Services or patient discharge from the hospital this note represents the current Occupational Therapy Discharge Summary. documented in this [facility]06-21-2022 Hospital course Narrative* Nishant Gamez MD - [...] during his recent hospital stay at [facility]. As you may know, George Styles, [...] Saldana MD Division of Hospital Medicine p: [phone] f: [phone] CONSULTS DURING ADMISSION: IP CONSULT TO SURGERY - UROLOGY IP CONSULT TO NEPHROLOGY - TRANSPLANT (MEDICINE) IP CONSULT TO INTERVENTIONAL RADIOLOGY IP CONSULT TO PHYSICAL THERAPY IP CONSULT TO OCCUPATIONAL THERAPY IP CONSULT TO PHARMACY BEDSIDE DISCHARGE MED DELIVERY IMAGING / PROCEDURES / RESULTS: Should you require further information or copies of results or reports please contact [email or web address] @ [phone] LABS AT TIME OF DISCHARGE: Lab Results [...] AT DISCHARGE: Zuly Bruno [address] [facility] / [place] [address] MEDICATIONS: Discharge Orders CT ABDOMEN/PELVIS WITHOUT CONTRAST [...] CAPS Generic drug: docusate Follow-up: Zuly Bruno, DYE EXPERT [address] [facility] [address] Schedule an appointment as soon as possible for a visit Follow-up appointment with your, primary care physician within 7-10 days, after discharge. [address] [facility] [phone] Follow up The department of urology will call you with a follow up appointment. LU Ovalle [address] 11th Floor [facility] [phone] Follow up Please make a follow up appointment with Dr. Munoz's office. Upcoming Appointments (up to five)-Some appointments for Medical Center outpatient clinics or diagnostic testing locations are not displayed below Provider Department Dept Phone 06/04/2022 10:40 AM IR CLINIC [facility]EM [facility] Interventional Radiology Clinic [phone] 06/27/2022 1:30 PM [facility] Department of Radiology Arrive at: Arrive to First Floor Registration Desk [phone] 06/27/2022 2:40 PM Ryan Yepez [facility] [place] Arrive at: Arrive to 2nd Floor, Registration [address] 10/31/2022 1:00 PM Steve Munoz [facility] Transplant [facility] [phone] 01/16/2023 9:40 AM TRANSPLANT HEPATOLOGY 3, [facility] Transplant [facility] [phone] Associated attestation - Daya Saldana MD - [...] (Peggy) Division of Hospital Medicine Pager [phone] documented [facility] Hospital Discharge instructions* Discharge Instr - [...] be changed by Interventional Radiology. Please call [phone] to schedule this appointment and with any questions or concerns you may have regarding the nephrostomy tube. If you have questions or concerns, please call Interventional Radiology at SOMEONE FROM INTERVENTIONAL RADIOLOGY WILL CALL YOU FOR A FOLLOW UP IN THE CLINIC Giulia Cavazos RN Nurse Coordinator Interventional Radiology Interventional Radiology Outpatient scheduling documented in this [facility]06[facility]-2022 Note* Plan of Care - [...] Ongoing Goal: Interdisciplinary Rounds/Family Conf Outcome: Ongoing [facility]06-20-2022 Note* Plan of Care - Liam Julian MD - 05/19/2022 12:44 PM EDT Discussed with [facility] re: possible urine culture performed at their facility. However, based on urinalysis completed at that time, which was only notable for hematuria, culture was not performed and sample no longer feasible for culture. Liam Julian MD Internal Medicine/Pediatrics, PGY-3 [facility]06-19-2022 Note* Nursing Notes - Carolyn Isaac RN - 05/18/2022 8:03 PM EDT 2003: IHIS message sent to Dr Justyn Wen, regarding patient passing a small kidney stone, about the size of pea. MD notified. Stone left in strainer in pt bathroom. 0500: IHIS message sent to Dr Justyn Wen, regarding pt BP 174/77. [facility]06-19-2022 Note* Plan of Care - Mel Hampton [...] outcomes by discharge/transition of care. Outcome: Ongoing [facility]06-19-2022 Note* Plan of Care - Елена Martinez [...] becomes hyponatremic, NS should instead be used. [facility] Work Phone: [phone]) 543-135006-19-2022 Note* Nursing Notes - Carolyn Isaac RN - 05/18/2022 4:37 AM EDT IHIS chat sent to Dr Tray Quintana, regarding pt BP 190/86. Pt complaining of pain at site of neph tube. PRN pain medication given per order parameters. Pt denies any other symptoms at this time. MD notified and aware. [facility]06-18-2022 Note* Nursing Notes - Danitza Thompson RN - 05/17/2022 12:28 PM EDT At 0900, I rounded with Dr. Gamez and Dr. Saldana. At that time I checked Mr. Styles's vital signs. His pulse oximeter was low and he was tachypneic. Verbal order at bedside to put nasal cannula on starting at 2liters oxygen and to provide incentive spirometer. [facility]06-18-2022 Note* Nursing Notes - Meka Rincon RN - 05/17/2022 10:52 AM EDT Interventional Radiology procedure completed with IR Attending Dr. Heart / Dr. Le of percutaneous right nephrostomy tube placement transplant kidney 10.2 Fr Griffin acosta Pt tolerated procedure with moderate sedation local numbing agent . Transported to inpatient after phase I recovery. Post procedure orders in place. [facility]06-17-2022 Note* Nursing Notes - Danitza Thompson RN - 05/16/2022 4:57 PM EDT At 1530, I text chavad Kaitlynn Gomez MD that patient has only had 25ml urine output in matias this afternoon. [facility]06-17-2022 Note* Plan of Care - Evan Byrd [...] with questions. Evan Byrd MD Urology, PGY-2 #[id number] [facility] Work Phone: 1(754) 354-458506-17-2022 Note* Certification - Nishant Gamez MD - 05/16/2022 11:20 AM EDT I certify that this patient requires inpatient services at this time. I anticipate the expected length of stay will include at least two midnights. Inpatient services are due to the following medicalconcerns Obstructive kidney stone. Plans for post hospitalization care will be discharge to home. [facility] Consult note* Maria De Jesus Pollock MD, PhD - 05/16/2022 9:37 AM EDTAssociated Order(s): IP CONSULT TO NEPHROLOGY - TRANSPLANT (MEDICINE) I saw George Styles at the [facility] on 05/16/2022. Reason for Consultation: [...] where he was given flomax and senthome. [place] better but noticed more pain and decreased [...] Maxi Pringle MD [facility] Work Phone: [phone]) 354-173506-17-2022 Consult note* Maria De Jesus Pollock MD, PhD - 05/16/2022 9:37 AM EDTAssociated Order(s): IP CONSULT TO NEPHROLOGY - TRANSPLANT (MEDICINE) I saw George Styles at the [facility] on 05/16/2022. Reason for Consultation: [...] where he was given flomax and senthome. [place] better but noticed more pain and decreased [...] states he went to his local ED [place] and he was put on Flomax and he did improve. Pt states last night he was unable to void with severe right sided abd pain. Pt states nausea and no vomiting or fevers. Pt states he went back to [place] ED at 0100 and they placed a [...] orthotopic (N/A, 04/12/2020); and kidney transplant w/o kootenai nephr ectomy (N/A, 04/12/2020). 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 The kootenai kidneys are progressively atrophic bilaterally compared to [...] of 06/14/2020 are no longer present. The kootenai distal right ureter is decompressed beyond this [...] with surgical history for renal graft and kootenai right urinary drainage, as a discrete ureteroneocystostomy is not identified, and the graft may be draining via a ureteroureterostomy. Urology consultation recommended. 3. The kootenai kidneys are bilaterally atrophic, with right renal sinus calcifications consistent with nonobstructing right kootenai renal calculi up to 6 mm. Normal [...] placement into transplant kidney at that time Setphanie Tomas MD PGY-3, Department of Urologic Surgery Pager #: [phone] Associated attestation - Ryan Yepez MD - [...] --may continue flomax documented in this encounter[facility]06-[facility]-2022 Note* Plan of Care - Kallie [...] explained choices provided [facility]06-17-2022 Note* Nursing Notes - Kallie Lorenzana RN - 05/16/2022 2:29 AM EDT On admission to [facility], a dual RN initial assessment of skin condition was performed by Kallie Lorenzana RN and Sheri Arguelles RN. Skin Assessment: WDL Jose Score: 20 LDA Added:N Kallie Lorenzana RN [facility]06-16-2022 Emergency department Note* Karlie Bean RN - 05/15/2022 11:14 PM EDT Report given to Kallie RN at [facility]06-16-2022 Emergency department Note* Karlie Bean RN - 05/15/2022 11:14 PM EDT Report given to Kallie RN at [facility] * Nisha Gardiner RN - 05/15/2022 7:02 [...] diagnosed Thursday and [facility] He went back to that ED and [...] DAY SURGERY MAIN OR KIDNEY TRANSPLANT W/O CAPITAN GRANDE NEPHRECTOMY N/A 04/12/2020 Laterality: N/A; Surgeon: LU [...] 05/15/2022 2:15 PM EDT Pt arrives from [facility] with kidney stones. Pt states he had right lower abd pain and right flank pain with blood in his urine since Thursday. Pt states he went to his local ED [place] and[place] was put on Flomax and he did improve. Pt states last night he was unable to void with severe right sided abd pain. Pt states nausea and no vomiting or fevers. Pt states he went back to [place] EDat 0100 and they placed a matias and CT scan completed and multiple kidney stones noted. [facility]2020. documented in [facility] History and physical note* Evan Bennett MD - 05/15/2022 9:18 PM EDT Internal Medicine Admission History & Physical Patient: George Styles, 1970, [id number] Physician: Evan Bennett MD, PGY1, Pager #[phone], GM 4 service Date of face to [...] DAY SURGERY MAIN OR KIDNEY TRANSPLANT W/O CAPITAN GRANDE NEPHRECTOMY N/A 04/12/2020 Laterality: N/A; Surgeon: LU [...] erythema: Skin: No jaundice or rash Neuro: game designer/creative director 3-7, 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 Strength grossly [...] dilation of the calyces may represent narrowing/partial [id number] ofthe ureter and mild hydronephrosis or sequela [...] MD Division of Hospital Medicine [phone] [facility] Work Phone: 1(310) 745-628206-16-2022 History and physical note* Evan Bennett MD - 05/15/2022 9:18 PM EDT Internal Medicine Admission History & Physical Patient: George Styles, 1970, [id number] Physician: Evan Bennett MD, PGY1, Pager #[phone], GM 4 service Date of face to [...] DAY SURGERY MAIN OR KIDNEY TRANSPLANT W/O CAPITAN GRANDE NEPHRECTOMY N/A 04/12/2020 Laterality: N/A; Surgeon: LU [...] erythema: Skin: No jaundice or rash Neuro: game designer/creative director 3-7, 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 Strength grossly [...] dilation of the calyces may represent narrowing/partial [id number] ofthe ureter and mild hydronephrosis or sequela [...] Hospital Medicine [id number] documented in this encounterOS[facility]06-16-2022 Emergency department Note* Nisha Gardiner RN - 05/15/2022 7:02 PM EDT Bladder scan with Dr Villatoro at bedside, 14ml noted [facility]06-16-[facility] Consult note* Stephanie Tomas MD - [...] states he went to his local ED [place] and he was put on Flomax and he did improve. Pt states last night he was unable to void with severe right sided abd pain. Pt states nausea and no vomiting or fevers. Pt states he went back to [place] ED at 0100 and they placed a [...] orthotopic (N/A, 04/12/2020); and kidney transplant w/o kootenai nephr ectomy (N/A, 04/12/2020). Medications He has [...] no penile discharge. No rashes/lesions. 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 The kootenai kidneys are progressively atrophic bilaterally compared to [...] of 06/14/2020 are no longer present. The kootenai distal right ureter is decompressed beyond this [...] with surgical history for renal graft and kootenai right urinary drainage, as a discrete ureteroneocystostomy is not identified, and the graft may be draining via a ureteroureterostomy. Urology consultation recommended. 3. The kootenai kidneys are bilaterally atrophic, with right renal sinus calcifications consistent with nonobstructing right kootenai renal calculi up to 6 mm. Normal [...] PGY-3, Department of Urologic Surgery Pager #: [phone] Associated attestation - Ryan Yepez MD - [...] future before surgical intervention --[facility]: [phone] Emergency department Note* Nisha Gardiner RN - 05/15/2022 6:[address] Schneider concerning no urine output via matias catheter. [facility]06-16-2022 Physician Emergency department Note* Gian Villatoro MD [...] Villatoro MD 05/15/222003 [facility] Work Phone: [phone] Emergency department Note* Nisha Gardiner RN - 05/15/2022 5:[address] Schneider made aware of only 30 ml urine via matias since arrival to room. [facility]06-16-2022 Physician Emergency department Note* Matt Schneider MD [...] 04/12/2020 Laterality: N/A; Surgeon: LU Palma; Location: [facility] SAME DAY SURGERY MAIN OR KIDNEY TRANSPLANT W/O CAPITAN GRANDE NEPHRECTOMY N/A 04/12/2020 Laterality: N/A; Surgeon: LU Palma; Location: [facility] SAME DAY SURGERY MAIN OR OTHER [...] MD Resident 05/15/222030 [facility] Work Phone: [phone]) 140-116506-16-2022 Emergency department Note* Lynn Rutherford RN - 05/15/2022 2:15 PM EDT Pt arrives from [facility] with kidney stones. Pt states he had right lower abd pain and right flank pain with blood in his urine since Thursday. Pt states he went to his local ED [place] andhe was put on Flomax and he did improve. Pt states last night he was unable to void with severe right sided abd pain. Pt states nausea and no vomiting or fevers. Pt states he went back to [place] EDat 0100 and they placed a matias and CT scan completed and multiple kidney stones noted. [facility] as he had liver and kidney transplant in 03/2020. [facility]04-15-2022 History of Present illness Narrative* Miranda Rosales [...] No Mailing/Pickup Date: 03/17/2022 Shipping Address: [address] [place] [address] [address] Contact Info: Specialty ([place]) [phone] Jakob [phone] [facility] [phone] Raheem [phone] Bedside Delivery ([facility]) [phone] documented in this encounterFirelands [facility]07-[facility]21 History of Present illness Narrative* Angel Carpio [...] 05/16/22 Goal Progress: Satisfactory Contact Info: Specialty ([place]) [phone] [facility] [phone] [facility] [phone] [facility] [phone] Bedside Delivery ([facility]) [phone] * Mallika Henderson - 06/14/2021 11:57 AM [...] Location: Home Signature Required: Yes Shipping Address: [address] [place], [place] [id number] Contact Info: Specialty ([place]) [phone] Jakob [phone] [facility] [phone] [facility] [phone] Bedside Delivery ([facility]) [phone] documented in this encounterFirelands Regional Medical Center South CampusEvaluation + Plan note Future Appointments Appointment Date:11/22/2024 09:00:00 AM Scheduled Provider:JONATHAN Almodovar APRN, [place] Location:[facility] Appointment Type:URO Office Visit [facility] evaluation + Plan note Future Appointments Appointment Date:03/09/2025 10:20:00 AM Scheduled Provider:JONATHAN Almodovar APRN, [place] X Location:[facility] Appointment Type:URO Office Visit [facility] Evaluation note* Diagnosis FAYE (acute kidney injury)- Primary Acute kidney failure, unspecified Hydronephrosis due to obstruction of ureteral orifice Hydronephrosis due to obstruction of ureteral orifice FAYE (acute kidney injury) Acute kidney failure, unspecified [facility] Diagnosis Follow-up exam- Primary Unspecified follow-up examination [facility] Diagnosis Immunosuppressed status- Primary Unspecified disorder of immune mechanism Kidney replaced by transplant Liver replaced by transplant Abnormal blood chemistry Other abnormal blood chemistry High risk medication use Encounter for long-term (current) use of other medications Aftercare following organ transplant Liver transplant recipient [facility] Diagnosis Attention to nephrostomy- Primary [facility] Diagnosis Other hydronephrosis- Primary [facility] Diagnosis FAYE (acute kidney injury) Acute kidney failure, unspecified documented [facility] Diagnosis Other hydronephrosis- Primary -donor kidney transplant recipient Kidney replaced by transplant [facility] Diagnosis Other hydronephrosis [facility] Diagnosis 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) Encounter for screening for malignant neoplasm of prostate Special screening for malignant neoplasm of prostate [facility] Diagnosis Abnormal blood chemistry- Primary Other abnormal blood chemistry Liver transplant recipient Kidney replaced by transplant Immunosuppressed status Unspecified disorder of immune mechanism Aftercare following organ transplant [facility] Diagnosis Kidney replaced by transplant- Primary [facility] Diagnosis Immunosuppressed status- Primary Unspecified disorder of immune mechanism Kidney replaced by transplant Aftercare following organ transplant High risk medication use Encounter for long-term (current) use of other medications Other general symptoms and signs Abnormal blood chemistry Other abnormal blood chemistry Hypertension secondary to other renal disorders [facility] Diagnosis Histoplasmosis- Primary Histoplasmosis, unspecified without [...] in [facility]* Diagnosis Bilateral lower extremity edema- Primary [...] pre-operative examination [facility] Heart failure, diastolic, acute- Primary Acute diastolic heart failure [facility] Diagnosis Liver lesion- Primary Other specified disorders of liver Liver transplant recipient High risk medication use Encounter for long-term (current) use of other medications Therapeutic drug monitoring Encounter for therapeutic drug monitoring Immunocompromised Unspecified immunity deficiency [facility] Diagnosis Kidney replaced by transplant- Primary [facility]* Diagnosis DARLENE (obstructive sleep apnea)- Primary Obstructive sleep apnea (adult) (pediatric) Generalized anxiety disorder ([facility]) Generalized anxiety disorder Class 1 obesity due to excess calories with body mass index (BMI) of 31.0 to 31.9 in adult, unspecified whether serious comorbidity present Kidney stones Calculus of kidney Tremor Abnormal involuntary movements Immunocompromised ([facility]) Unspecified immunity deficiency S/P liver transplant ([facility]) Bilateral lower extremity edema- Primary 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) Atherosclerosis 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) Atherosclerosis of aorta Obesity (BMI 30-39.9) DARLENE (obstructive sleep apnea) Obstructive sleep apnea (adult) (pediatric) Tremor Abnormal involuntary movements Immunocompromised ([facility]) Unspecified immunity deficiency Primary hypertension ([facility]) Unspecified essential hypertension Shortness of breath Encounter for subsequent annual wellness visit (AWV) in Medicare patient- Primary Liver transplant status (Z94.4) DARLENE (obstructive sleep apnea) Obstructive sleep apnea (adult) (pediatric) Primary hypertension ([facility]) Unspecified essential hypertension Complication of arteriovenous dialysis fistula, subsequent encounter Bilateral lower extremity edema Histoplasmosis S/P liver transplant (CMS/HCC) Immunocompromised ([facility]) Unspecified immunity deficiency Heart failure, diastolic, acute ([facility]) Acute diastolic heart failure Organ transplant Unspecified [...] of urinary stream [facility]* Diagnosis DARLENE (obstructive sleep [...] of urinary stream documented in this encounter [facility]* Diagnosis Primary hypertension (CMS/HCC) Unspecified essential hypertension documented in this encounter [facility]* Diagnosis DARLENE (obstructive sleep [...] kidney Other polyneuropathy documented in this encounter [facility]* Diagnosis DARLENE (obstructive sleep apnea)- [...] replaced by transplant documented in this encounter [facility]* Diagnosis DARLENE (obstructive sleep [...] Kidney stones Calculus of kidney Primary hypertension ([facility]) Unspecified essential hypertension documented in this encounter [facility]* Diagnosis DARLENE (obstructive sleep apnea)- Primary Obstructive sleep apnea (adult) (pediatric) Generalized anxiety disorder (CMS/HCC) Generalized anxiety disorder Class 1 obesity due to excess calories with body mass index (BMI) of 31.0 to 31.9 in adult, unspecified whether serious comorbidity present Kidney stones Calculus of kidney Tremor Abnormal involuntary movements Immunocompromised (CMS/HCC) Unspecified immunity deficiency S/P liver transplant ([facility]) Bilateral lower extremity edema- Primary 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) Atherosclerosis 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) Atherosclerosis of aorta Obesity (BMI 30-39.9) DARLENE (obstructive sleep apnea) Obstructive sleep apnea (adult) (pediatric) Tremor Abnormal involuntary movements Immunocompromised (CMS/HCC) Unspecified immunity deficiency Primary hypertension ([facility]) Unspecified essential hypertension Shortness of breath Encounter [...] acid level- Primary documented in this encounter [facility]* Diagnosis DARLENE (obstructive sleep [...] Liver transplant status documented in this encounter [facility]* Diagnosis DARLENE (obstructive sleep apnea)- [...] patient Other polyneuropathy documented in this encounter [facility]* Diagnosis Onset Date Resolution Status Admit Date Essential hypertension acute Se ptember 2024 8:20am RAMOS (generalized anxiety disorder) acute August 10, 2025 8:20am GERD with apnea without esophagitis acute August 10, 2025 8:20am Morbid obesity due to excess calories acute August 10, 2025 8:20am DARLENE (obstructive sleep apnea) acute August 10, 2025 8:20am [facility]ipheral [facility] Work Phone: Evaluation note* Diagnosis Kidney replaced by transplant- Primary [facility] Narrative No data available for this section [facility] Discharge instructions Additional Instructions DISCHARGE [...] NOT operate machinery such as power tools, [employer] mowers, [email or web address] blowers, sewing machines, etc. for 24 hours. [...] times daily if needed. - Office number [phone]. [facility] Work Phone: Progress note No data available for this section [facility] Frank reason for referral (narrative)* Consultation (Routine) - New Request Specialty Diagnoses / Procedures Referred By Contac t Referred To Contact Interventional Radiology Diagnoses Hydronephrosis due to obstruction of ureteral orifice Daya Saldana MD [address] [place] [address] Referral ID Status Reason Start Date Expiration Date V isits Requested Visits Authorized [id number] New Request 05/18/2022 06/12/2023 1 1 * Radiology (Emergency) - New Request Specialty Diagnoses / Procedures Referred By Contac t Referred To Contact Procedures US RENAL TRANSPLANT SCAN Daya Saldana MD [address] [place] [address] Referral ID Status Reason Start Date Expiration Date V isits Requested Visits Authorized [id number] New Request 05/16/2022 06/10/2023 1 1 * Consultation (Routine) - New Request Specialty Diagnoses / Procedures Referred By Contac t Referred To Contact Urology Diagnoses FAYE (acute kidney injury) Ryan Yepez MD [address] [place] [address] [address] [place] [address] Referral ID Status Reason Start Date Expiration Date V isits Requested Visits Authorized [id number] New Request 05/16/2022 06/10/2023 1 1 * MRI/CAT Scan (Routine) - New Request Specialty Diagnoses / Procedures Referred By Contac t Referred To Contact Diagnoses FAYE (acute kidney injury) Procedures CT ABDOMEN/PELVIS WITHOUT CONTRAST CHG CT SCAN,ABDOMENT AND PELVIS,W/O CONTRAST Ryan Yepez MD [address] [facility] [address] [place] [address] Referral ID Status Reason Start Date Expiration Date V isits Requested Visits Authorized [id number] New Request 05/16/2022 06/10/2023 1 1 * (Routine) - Pending Review Specialty Diagnoses / Procedures Referred By Contac t Referred To Contact Procedures PLATELET MONITORING PER PROTOCOL Daya Saldana MD [address] [place] [address] Referral ID Status Reason Start Date Expiration Date V isits Requested Visits Authorized [id number] Pending Review 05/15/2022 06/09/2023 1 1 * (Routine) - Pending Review Specialty Diagnoses / Procedures Referred By Contac t Referred To Contact Procedures DVT/VTE RISK ASSESSMENT Daya Saldana MD [address] [place] [address] Referral ID Status Reason Start Date Expiration Date V isits Requested Visits Authorized [id number] Pending Review 05/15/2022 06/09/2023 1 1 * (Routine) Specialty Diagnoses / Procedures Referred By Contac t Referred To Contact Evan Bennett MD [address] [place] [address] Referral ID Status Reason Start Date Expiration Date Visits Re quested Visits Authorized * (Routine) Specialty Diagnoses / Procedures Referred By Contac t Referred To Contact Evan Bennett MD [address] [place] [phone] Referral ID Status Reason Start Date Expiration Date Visits Re quested Visits Authorized [facility] for referral (narrative)* Consultation (Routine) - New Request Specialty Diagnoses / Procedures Referred By Contac t Referred To Contact Sleep Medicine Diagnoses Reese Conroy MD [address] [place] [address] Referral ID Status Reason Start Date Expiration Date V isits Requested Visits Authorized [id number] New Request 09/10/2023 10/04/2024 1 1 * MRI/CAT Scan (Routine) - New Request Specialty Diagnoses / Procedures Referred By Contac t Referred To Contact Diagnoses Histoplasmosis Procedures CT CHEST WITHOUT CONTRAST CHG DIAGNOSTIC COMPUTED TOMOGRAPHY THORAX W/O JAZMINERSReese Stewart MD [address] [place] [address] Referral ID Status Reason Start Date Expiration Date V isits Requested Visits Authorized [id number] New Request 09/10/2023 10/04/2024 1 1 * Radiology (Routine) - New Request Specialty Diagnoses / Procedures Referred By Contac t Referred To Contact Procedures US RENAL TRANSPLANT SCAN Steve Munoz MBBS [address] [place] [address] Referral ID Status Reason Start Date Expiration Date V isits Requested Visits Authorized [id number] New Request 08/29/2023 09/22/2024 1 1 * (Routine) - New Request Specialty Diagnoses / Procedures Referred By Contac t Referred To Contact Procedures PLATELET MONITORING PER PROTOCOL Steve Munoz MBBS [address] [place] [address] Referral ID Status Reason Start Date Expiration Date V isits Requested Visits Authorized [id number] New Request 08/28/2023 09/21/2024 1 1 * (Routine) - New Request Specialty Diagnoses / Procedures Referred By Contac t Referred To Contact Procedures DVT/VTE RISK ASSESSMENT Steve Munoz MBBS [address] [place] [address] Referral ID Status Reason Start Date Expiration Date V isits Requested Visits Authorized [id number] New Request 08/28/2023 09/21/2024 1 1 [facility] for referral (narrative)* Consultation (Routine) - Pending Review Specialty Diagnoses / Procedures Referred By Contac t Referred To Contact Urology Diagnoses Decreased urine stream Procedures ID OFFICE/OUTPATIENT NEW HIGH MDM 60 MINUTES Zuly Bruno NP [address] [place] [address] Trace Gannon MD [address] [place] [address] Referral ID Status Reason Start Date Expiration Date Visits Requested Visits Authorized [id number] Pending Review Specialty Services Required 08/23/2024 02/19/2025 1 1 * Consultation (Routine) - Pending Review Specialty Diagnoses / Procedures Referred By Contac t Referred To Contact Gastroenterology Diagnoses Gastroesophageal reflux disease, unspecified whether esophagitis present Abdominal pain, generalized Other constipation Procedures ID OFFICE/OUTPATIENT NEW HIGH MDM 60 MINUTES Zuly Bruno NP [address] [place] [address] Alaina Mclaughlin DO [address] [place] [address] Referral ID Status Reason Start Date Expiration Date Visits Requested Visits Authorized [id number] Pending Review Specialty Services Required 08/23/2024 02/19/2025 1 1 * (Routine) - Authorized Specialty Diagnoses / Procedures Referred By Contac t Referred To Contact Radiology Diagnoses Left carotid bruit Mixed hyperlipidemia (CMS/HCC) Procedures Vascular US carotid artery duplex bilateral Zuly Bruno NP [address] [place] [address] Referral ID Status Reason Start Date Expiration Date V isits Requested Visits Authorized [id number] Authorized 08/23/2024 02/19/2025 1 1 PINO Hassan for referral (narrative)No reason for referral [facility] Work Phone: Instructions * Patient Instructions - Christin Elizabeth APRN-DYE EXPERT - 10/19/2018 9:21 AM EST You should take an extra dose of the lactulose as needed so that you are having 3-4 bowel movementsdaily. You should start the chemical dependency counseling as soon as possible. If you have questions, call the transplant social work assistant Melania Pierson. in this encounter* Patient Instructions - Sophie Cary, SAMI - 10/12/2018 11:09 AM EST You have been seen in the pre-transplant evaluation clinic by Dr. Restrepo and Sophie Cary. Sophie Cary is your pre-prevention coordinator she can be reached at [phone] at any time for questions during the pre-transplant process. Your evaluation is complete pendin. Abdominal ultrasound. 2. 6 minute walk test. 3. Cardiology evaluation. Additionally, your job change crew member will recommend testing to screen for coronary artery disease. This will be scheduled for you after your cardiology visit. 4. Your coordinator will be requesting record from your last dental visit, colonoscopy and EGD. 5. Please work to complete social work recommendations. Your social work assistant will be contacting you to follow up on your progress. 6. You have also been referred for a kidney transplant. An appointment will be scheduled for you sari evaluated in the kidney transplant clinic after you have satisfied requirements dictated by [employer]. Once your testing is complete, we [...] ___ Other Name MRN * Christin Elizabeth, PHOTORESIST PRINTER-DYE EXPERT - 10/19/2018 9:00 AM EST Formatting of this note may be different from the original. History of Present Illness: Chief Complaint Patient presents with Follow-up Cirrhosis George Styles is a 48 y.o. male who presents to the [facility] today regarding his diagnosis/chief complaint(s) of Cirrhosis secondary to ETOH, with ESRD follows with Dr. Orr. Currently undergoing evaluation for liver/kidney transplant. Has been seen in transplant clinic for eval. Still undergoing pre testing. Diagnosed in April 2018. Last drink was immediately prior to hospital admission in [place] for ACLF. Hospital course notable for ARF [...] (human immunodeficiency virus infection); Hyperlipidemia; Hyperthyroidism; Hypothyroidism; [place] (myocardial infarction); Migraine; DARLENE (obstructive sleep apnea); [...] kidney transplant evaluation. Pt was AOx3. Transplant Corn Detasseler role/function was explained and reviewed. The patient was informed that the results of this assessment will be shared with the referring provider and the transplant team. The patient verbalized understanding of this information. The [facility] psychosocial assessment consent form has been explained to patient and has been signed. Pt is completing this evaluation with brother (David) in the Outpatient setting. SWK educated pt on the benefits of completing/filing advanced directives and resources were offered. Pt identifies with HOLINESS adventist. Pt confirms being a [place] Citizen. Pt.'s primary language is Maldivian. Pt confirms the ability to read,write, and understand Maldivian. Pt denies potential donors. Donor cards and [...] has valid license, does not regularly drive (DYE EXPERT recommends that he not to drive). He [...] organ related disease etoh cirrohosis April in [facility] for thirty days. [...] as well as referred him to pre prevention coordinator. Pt and support demonstrated moderate understanding [...] Patient's brother David is a self employed roofing contractor. Additional support includes his other brother Tyshawn and his Mary live fifteen minutes away. Of note Mary is a glueline worker for a [employer] is available to assist department director. He confirms being comfortable asking for help. [...] in 2010, he was employed by the [employer]. He has access to SSDI payment (SSDI starts in November) in regards to financial means pre/ post-transplant. Pt confirms (meeting bills currently, ) being able to meet daily needs. Patient's brother asking for additional information on community resources, food stamps and Heap. Refer him to pt.'s dialysis center and the [facility]. Hereports access to Medicaid. Pt. denies history. [...] court ordered treatment after a DUI charge [facility] in [place], court ordered treatment in 2001 and in [...] by patient from his primary medical provider- [facility] patient was noted as attending an [...] He was provided with local AOD resources, [facility] AOD informational packet. Pt was [...] new visit Date of service: 10/12/2018 -Referring grapple skidder operator for today's consult: -Primary Care Provider: [...] EST Timed up and go 9.9 seconds Bulk Receiver Left 52.8 pounds Right 44.9 pounds Waist circ 38.5 inches * Sophie Cary RN - 10/12/2018 10:00 AM EST Formatting of this note may be different from the original. Patient George Styles ([id number]), accompanied by his brother, was seen on [...] any further questions. Sophie GUERINN, RN Liver Janitor Caretaker Etiology: ETOH HCC: No ETOH: Yes Last [...] Yovani Orr MD [address] [address] Status Reason Specialty Diagnoses / Procedures Referred By Contact Referred To Contact New Request Diagnoses Cirrhosis of liver with ascites, unspecified hepatic cirrhosis type Procedures US ABDOMEN RUQ/LIVER/GB Yovani Orr MD [address] [address] Specialty Diagnoses / Procedures Referred By Contac t Referred To Contact Diagnoses FAYE (acute kidney injury) Procedures CT ABDOMEN/PELVIS WITHOUT CONTRAST CHG CT SCAN,ABDOMENT AND PELVIS,W/O CONTRAST Central Scheduling [address] [place] [address] Referral ID Status Reason Start Date Expiration Date V isits Requested Visits Authorized [id number] Pending Review 05/16/2022 06/10/2023 1 1 Specialty Diagnoses / Procedures Referred By Contac t Referred To Contact Diagnoses Other hydronephrosis Procedures [facility] Ryan Yepez MD [address] [facility] [address] [place] [address] Referral ID Status Reason Start Date Expiration Date V isits Requested Visits Authorized [id number] New Request 07/07/2022 08/01/2023 1 1 Specialty Diagnoses / Procedures Referred By Contac t Referred To Contact Procedures DIRECT ADMIT REQUEST Steve Munoz MBBS [address] [place] [address] Referral ID Status Reason Start Date Expiration Date V isits Requested Visits Authorized [id number] New Request 08/28/2023 09/21/2024 1 1 Specialty Diagnoses / Procedures Referred By Contac t Referred To Contact Radiology Diagnoses DARLENE (obstructive sleep apnea) Primary hypertension (CMS/HCC) Bilateral lower extremity edema Shortness of breath Procedures Echocardiogram 2D complete Zuly Bruno, GLUE SIZE MACHINE OPERATOR [address] [place] [address] Referral ID Status Reason Start Date Expiration Date Visits Requested Visits Authorized [id number] Incomplete Perform Procedure 01/06/2024 07/04/2024 1 1 Specialty Diagnoses / Procedures Referred By Contac t Referred To Contact Procedures US IMAGING REGIONAL ANESTHESIA Kehinde Gutierrez MD [address] [place] [address] Referral ID Status Reason Start Date Expiration Date V isits Requested Visits Authorized [id number] New Request 01/22/2024 02/15/2025 1 1 Specialty Diagnoses / Procedures Referred By Contac t Referred To Contact Cardiovascular Medicine Diagnoses Heart failure, diastolic, acute Kelvin Smith MD, MBBS [address] [place] [address] Referral ID Status Reason Start Date Expiration Date V isits Requested Visits Authorized [id number] New Request 01/20/2024 02/13/2025 1 1 Specialty Diagnoses / Procedures Referred By Contac t Referred To Contact Procedures US ABDOMEN LIVER DOPPLER US ABDOMEN LIVER TRANSPLANT DOPPLER Timothy Joseph [facility] [address] [facility] [address] [place] [address] Referral ID Status Reason Start Date Expiration Date V isits Requested Visits Authorized [id number] New Request 01/16/2024 02/09/2025 1 1 Specialty Diagnoses / Procedures Referred By Contac t Referred To Contact Procedures DVT/VTE RISK ASSESSMENT Kelvin Smith MD, MBBS [address] [place] [id number] Referral ID Status Reason Start Date Expiration Date V isits Requested Visits Authorized [id number] New Request 01/16/2024 02/09/2025 1 1 Specialty Diagnoses / Procedures Referred By Contac t Referred To Contact Procedures PLATELET MONITORING PER PROTOCOL Kelvin Smith MD, MBBS [address] [place] [address] Referral ID Status Reason Start Date Expiration Date V isits Requested Visits Authorized [id number] New Request 01/16/2024 02/09/2025 1 1 Referral ID Status Reason Start Date Expiration Date V isits Requested Visits Authorized [id number] New Request 01/16/2024 02/09/2025 1 1 Specialty Diagnoses / Procedures Referred By Contac t Referred To Contact Procedures ECG Kelvin Smith MD, MBBS [address] [place] [phone] Referral ID Status Reason Start Date Expiration Date V isits Requested Visits Authorized [id number] New Request 01/16/2024 02/09/2025 1 1 Specialty Diagnoses / Procedures Referred By Contac t Referred To Contact Diagnoses Liver lesion Procedures MRI ABDOMEN WITH AND WITHOUT CONTRAST CHG MRI ABDOMEN W/O & W/CONTRAST MATERIAL Daisha Max, DO [address] [place] [address] Referral ID Status Reason Start Date Expiration Date V isits Requested Visits Authorized [id number] New Request 06/17/2024 07/12/2025 1 1 Advance Directives No Advanced Directives Records FoundDocuments on File Type Date Recorded Patient Segmental Paving Supervisor Expl anation Advance Directives and Living Will Power of Melter Supervisor Oxygen Furnace Latest Code Status on File Code Status [...] Yovani Orr MD [address] [address] Status Reason Specialty Diagnoses / Procedures Referre d By Contact Referred To Contact Denied Diagnoses Alcoholic cirrhosis, unspecified whether ascites present Pre-transplant evaluation for liver transplant Procedures MRI ABDOMEN WITH CONTRAST ID MRI, ABDOMEN W/CONTRAST Yovani Orr MD [address] [address] Reason Comments Liver Recipient Evaluation Status Reason Specialty Diagnoses / Procedures Referred By Contact Referred To Contact New Request Transplant / Transplant Surgery Procedures PRE NEW PATIENT Yovani Orr MD [address] [address] Alfredito Restrepo MD [address] [place] [address] Reason Comments Reschedule Reason Comments Outside Medical Records Request Reason Comments Social Work Follow-up Reason Comments Kidney Stone Specialty Diagnoses / Procedures Referred By Contac t Referred To Contact Diagnoses Obstructing kidney stone, s/p kidney transplant 2019 Daya Saldana MD [address] [place] [address] [facility] [address] [place] [address] Referral ID Status Reason Start Date Expiration Date Visits Re quested Visits Authorized [id number] 1 1 Reason Comments Follow-up Reason Comments Kidney Recipient Follow-up Liver Recipient Follow-up Reason Comments Consult Reason Comments New Patient Hospital follow up Specialty Diagnoses / Procedures Referred By Contac t Referred To Contact Urology Diagnoses hosp fu with [address] prior Procedures NEW TO DOC/RET PATIENT Zuly Bruno CNP [address] [place] [address] Ryan Yepez MD [address] [facility] [address] [place] [address] Referral ID Status Reason Start Date Expiration Date Visits Re quested Visits Authorized [id number] Closed 06/27/2022 07/22/2023 1 1 Specialty Diagnoses / Procedures Referred By Contac t Referred To Contact Diagnoses FAYE (acute kidney injury) Procedures CT ABDOMEN/PELVIS WITHOUT CONTRAST CHG CT SCAN,ABDOMENT AND PELVIS,W/O CONTRAST Central Scheduling [address] [place] [address] Referral ID Status Reason Start Date Expiration Date V isits Requested Visits Authorized [id number] Pending Review 05/16/2022 06/10/2023 1 1 Reason Comments Follow-up Specialty Diagnoses / Procedures Referred By Contac t Referred To Contact Urology Diagnoses 1 week fu post NT clamp Procedures RETURN PATIENT Zuly Bruno CNP [address] [place] [address] Ryan Yepez MD [address] [facility] [address] [place] [phone] Referral ID Status Reason Start Date Expiration Date Visits Requested Visits Authorized [id number] Authorized - 07/07/2022 08/01/2023 2 2 Specialty Diagnoses / Procedures Referred By Contac t Referred To Contact Diagnoses Other hydronephrosis Procedures FLUORO IMAGING FOR UROLOGY Ryan Yepez MD [address] [facility] [address] [place] [address] Referral ID Status Reason Start Date Expiration Date V isits Requested Visits Authorized [id number] New Request 07/07/2022 08/01/2023 1 1 Specialty Diagnoses / Procedures Referred By Contac t Referred To Contact Urology Diagnoses 1 week fu post NT clamp Procedures RETURN PATIENT Zuly Bruno, DYE EXPERT [address] [place] [address] Ryan Yepez MD [address] [place] [address] [address] [place] [address] Referral ID Status Reason Start Date Expiration Date Visits Re quested Visits Authorized [id number] Closed 07/07/2022 08/01/2023 2 2 Reason Comments Liver Recipient Follow-up Reason Comments Kidney Recipient Follow-up Reason Comments Kidney Recipient Follow-up Specialty Diagnoses / Procedures Referred By Contac t Referred To Contact Diagnoses Kidney replaced by transplant Steve Munoz MBBS [address] [place] [address] [facility] [address] [place] [address] Referral ID Status Reason Start Date Expiration Date Visits Re quested Visits Authorized [id number] 1 1 Specialty Diagnoses / Procedures Referred By Contac t Referred To Contact Diagnoses Pleural effusion on right PNEUMONIA- HX LIVER AND KIDNEY TRANSPLANT Reese Sage MD [address] [place] [address] [facility] [address] [place] [address] Referral ID Status Reason Start Date Expiration Date Visits Re quested Visits Authorized [id number] 1 1 Reason Comments New Patient Specialty Diagnoses / Procedures Referred By Deni edwards Referred To Contact Cardiovascular Medicine Diagnoses Heart failure, diastolic, acute Kelvin Smith MD, MBBS [address] 1[address] [place] [address] Referral ID Status Reason Start Date Expiration Date Visits Requested Visits Authorized [id number] Authorized - 01/20/2024 02/13/2025 5 5 Reason [...] fracture Liver transplant status Organ transplant Procedures ID OFFICE/OUTPATIENT NEW HIGH MDM 60 MINUTES Zuly Bruno, BA [address] [place] [address] Phone: tel: fax: Tony Hernandez MD [address] [facility] [place] [address] Phone: tel: fax: Referral ID Status Reason Start Date Expiration Date V isits Requested Visits Authorized [id number] Closed Specialty Services Required 01/13/2025 07/12/2025 1 [...] AUTHOR'S ORGANIZ ATION 01/27/2021 [facility] DATE CREATED AUTHOR AUTHOR'S ORGANIZ ATION 05/11/2023 [facility] DATE CREATED AUTHOR AUTHOR'S ORGANIZ ATION 01/05/2025 [facility] DATE CREATED AUTHOR AUTHOR'S ORGANIZ ATION 03/25/[address] [facility] DATE CREATED AUTHOR AUTHOR'S ORGANIZ ATION 03/26/2025 [facility] DATE CREATED AUTHOR AUTHOR'S ORGANIZ ATION 05/13/2025 [facility] EPIC DATE CREATED AUTHOR AUTHOR'S ORGANIZ ATION 09/02/2025 [facility] Care Teams (unrecognized sec tion and content) Top Cleaner Relationship Specialty Start Date End Date Zuly Bruno CNP PCP - General 07/19/18 Comfort Rivera [facility] [address] [facility] [address] [place] [address] Pharmacist Pharmacist 05/16/20 Angel Carpio RPh,PharmD Pharmacist Pharmacist 05/16/20 Te Leigh RPh,PharmD Pharmacist Pharmacist 01/09/21 Top Cleaner Relationship Specialty Start Date End Date Zuly Bruno CNP PCP - General 07/19/18 Comfort Rivera RP [address] [facility] [address] [place] [address] Pharmacist Pharmacist 05/16/20 Angel Carpio RPh,PharmD Pharmacist Pharmacist 05/16/20 Te Leigh RPh,PharmD Pharmacist Pharmacist 01/09/21 Top Cleaner Relationship Specialty Start Date End Date Zuly Bruno CNP PCP - General 07/19/18 Top Cleaner Relationship Specialty Start Date End Date Zuly Bruno CNP PCP - General 07/19/18 Top Cleaner Relationship Specialty Start Date End Date Zuly Bruno CNP PCP - General 07/19/18 Top Cleaner Relationship Specialty Start Date End Date Zuly Bruno DYE EXPERT PCP - General 07/19/18 Top Cleaner Relationship Specialty Start Date End Date BrianlatishaZuly tipton CNP PCP - General 07/19/18 Top Cleaner Relationship Specialty Start Date End Date BrianlatishaZuly tiptonROB PCP - General 07/19/18 Top Cleaner Relationship Specialty Start Date End Date BrianlatishaZuly tipton DYE EXPERT PCP - General 07/19/18 Top Cleaner Relationship Specialty Start Date End Date Zuly Bruno CNP PCP - General 07/19/18 Top Cleaner Relationship Specialty Start Date End Date BrianlatishaZuly tipton DYE EXPERT PCP - General 07/19/18 Top Cleaner Relationship Specialty Start Date End Date BrianlatishaZuly tipton DYE EXPERT PCP - General 07/19/18 Top Cleaner Relationship Specialty Start Date End Date LexiesylvesterlatishaZuly tipton DYE EXPERT PCP - General 07/19/18 Top Cleaner Relationship Specialty Start Date End Date Zuly Bruno CNP PCP - General 07/19/18 Top Cleaner Relationship Specialty Start Date End Date Zuly Bruno CNP PCP - General 07/19/18 Top Cleaner Relationship Specialty Start Date End Date Zuly Bruno CNP PCP - General 07/19/18 Top Cleaner Relationship Specialty Start Date End Date Zuly Bruno CNP PCP - General 07/19/18 Evan White DO [facility] [place] [address] Infectious Disease Infectious Disease 09/09/23 Top Cleaner Relationship Specialty Start Date End Date Zuly Bruno CNP PCP - General 07/19/18 Evan White DO [facility] [place] [address] Infectious Disease Infectious Disease 09/09/23 Top Cleaner Relationship Specialty Start Date End Date Zuly Bruno CNP PCP - General 07/19/18 Evan White DO [facility] [place] [address] Infectious Disease Infectious Disease 09/09/23 Top Cleaner Relationship Specialty Start Date End Date Momo Verdugo MD PCP - General Family Medicine 05/21/23 Top Cleaner Relationship Specialty Start Date End Date Momo Verdugo MD PCP - General Family Medicine 05/21/23 Top Cleaner Relationship Specialty Start Date End Date Momo Verdugo MD PCP - General Family Medicine 05/21/23 Top Cleaner Relationship Specialty Start Date End Date Zuly Bruno CNP PCP - General 07/19/18 Evan White DO [facility] [place] [address] Infectious Disease Infectious Disease 09/09/23 Top Cleaner Relationship Specialty Start Date End Date Zuly Bruno CNP PCP - General 07/19/18 Evan White DO [facility] [place] [address] Infectious Disease Infectious Disease 09/09/23 Top Cleaner Relationship Specialty Start Date End Date Zuly Bruno CNP PCP - General 07/19/18 Evan White DO [facility] [place] [address] Infectious Disease Infectious Disease 09/09/23 Top Cleaner Relationship Specialty Start Date End Date Zuly Bruno ROB PCP - General 07/19/18 Evan White DO [facility] [place] [address] Infectious Disease Infectious Disease 09/09/23 Top Cleaner Relationship Specialty Start Date End Date Zuly Bruno ROB PCP - General 07/19/18 Evan White DO [address] [place] [address] Infectious Disease Infectious Disease 09/09/23 Top Cleaner Relationship Specialty Start Date End Date Zuly Bruno ROB PCP - General 07/19/18 Top Cleaner Relationship Specialty Start Date End Date Zuly Bruno CNP PCP - General 07/19/18 Top Cleaner Relationship Specialty Start Date End Date Zuly Bruno CNP PCP - General 07/19/18 Top Cleaner Relationship Specialty Start Date End Date Zuly Bruno CNP PCP - General 07/19/18 Top Cleaner Relationship Specialty Start Date End Date Zuly Bruno CNP PCP - General 07/19/18 Top Cleaner Relationship Specialty Start Date End Date AichZuly dorantes CNP PCP - General 07/19/18 Top Cleaner Relationship Specialty Start Date End Date Lexiesylvesterjose e ROB Chairez PCP - General 07/19/18 Top Cleaner Relationship Specialty Start Date End Date Momo Verdugo MD [address] [place] [address] PCP - General Family Medicine 02/11/24 Zuly Bruno NP [address] [place] [address] Nurse Practitioner Family Medicine 02/11/24 Kasandra Thomas DO [address] [place] [address] Referring Physician Neurology 02/17/24 Top Cleaner Relationship Specialty Start Date End Date Momo Verdugo MD [address] [place] [address] PCP - General Family Medicine 02/11/24 Zuly Bruno NP [address] [place] [address] Nurse Practitioner Family Medicine 02/11/24 Kasandra Thomas DO [address] [place] [address] Referring Physician Neurology 02/17/24 Top Cleaner Relationship Specialty Start Date End Date Momo Verdugo MD [address] [place] [address] PCP - General Family Medicine 02/11/24 Zuly Bruno NP [address] [place] [address] Nurse Practitioner Family Medicine 02/11/24 Kasandra Thomas DO [address] [place] [address] Referring Physician Neurology 02/17/24 Top Cleaner Relationship Specialty Start Date End Date Momo Verdugo MD [address] [place] [address] PCP - General Family Medicine 02/11/24 Zuly Bruno NP [address] [place] [address] Nurse Practitioner Family Medicine 02/11/24 Kasandra Thomas DO [address] [place] [address] Referring Physician Neurology 02/17/24 Top Cleaner Relationship Specialty Start Date End Date Momo Verdugo MD [address] [place] [address] PCP - General Family Medicine 02/11/24 Zuly Bruno NP [address] [place] [address] Nurse Practitioner Family Medicine 02/11/24 Kasandra Thomas DO [address] [place] [address] Referring Physician Neurology 02/17/24 Top Cleaner Relationship Specialty Start Date End Date Momo Verdugo MD [address] [place] [address] PCP - General Family Medicine 02/11/24 Zuly Bruno NP [address] [place] [address] Nurse Practitioner Family Medicine 02/11/24 Kasandra Thomas DO [address] [place] [address] Referring Physician Neurology 02/17/24 Top Cleaner Relationship Specialty Start Date End Date Momo Verdugo MD [address] [place] [address] PCP - General Family Medicine 02/11/24 Zuly Bruno NP [address] [place] [address] Nurse Practitioner Family Medicine 02/11/24 Kasandra Thomas DO [address] [place] [address] Referring Physician Neurology 02/17/24 Top Cleaner Relationship Specialty Start Date End Date Momo Verdugo MD [address] [place] [address] PCP - General Family Medicine 02/11/24 Zuly Bruno NP [address] [place] [address] Nurse Practitioner Family Medicine 02/11/24 Kasandra Thomas DO [address] [place] [address] Referring Physician Neurology 02/17/24 Top Cleaner Relationship Specialty Start Date End Date Momo Verdugo MD [address] [place] [address] PCP - General Family Medicine 02/11/24 Zuly Bruno NP [address] [place] [address] Nurse Practitioner Family Medicine 02/11/24 Kasandra Thomas DO [address] [place] [address] Referring Physician Neurology 02/17/24 Top Cleaner Relationship Specialty Start Date End Date Momo Verdugo MD [address] [place] [address] PCP - General Family Medicine 02/11/24 Zuly Bruno, BA [address] [place] [address] Nurse Practitioner Family Medicine 02/11/24 Kasandra Thomas DO [address] [place] [address] Referring Physician Neurology 02/17/24 Top Cleaner Relationship Specialty Start Date End Date Momo Verdugo MD [address] [place] [address] PCP - General Family Medicine 02/11/24 Zuly Bruno NP [address] [place] [address] Nurse Practitioner Family Medicine 02/11/24 Kasandra Thomas DO [address] [place] [address] Referring Physician Neurology 02/17/24 Team Status: Active [...] Other Provider Active Start: December 26, 2024 Top Cleaner Relationship Specialty Start Date End Date Momo Verdugo MD [address] [place] [address] PCP - General Family Medicine 02/11/24 Zuly Bruno NP [address] [place] [address] Nurse Practitioner Family Medicine 02/11/24 Kasandra Thomas DO [address] [place] [address] Referring Physician Neurology 02/17/24 Top Cleaner Relationship Specialty Start Date End Date Momo Verdugo MD [address] [place] [address] PCP - General Family Medicine 02/11/24 Zuly Bruno NP [address] [place] [address] Nurse Practitioner Family Medicine 02/11/24 Kasandra Thomas DO [address] [place], [place] [address] Referring Physician Neurology 02/17/24 Top Cleaner Relationship Specialty Start Date End Date Momo Verdugo MD [address] [place] [address] PCP - General Family Medicine 02/11/24 Zuly Bruno NP [address] [place] [address] Nurse Practitioner Family Medicine 02/11/24 Kasandra Thomas DO [address] [place] [address] Referring Physician Neurology 02/17/24 Top Cleaner Relationship Specialty Start Date End Date Momo Verdugo MD [address] [place] [address] PCP - General Family Medicine 02/11/24 Zuly Bruno NP [address] [place] [address] Nurse Practitioner Family Medicine 02/11/24 Kasandra Thomas DO [address] [place] [address] Referring Physician Neurology 02/17/24 Top Cleaner Relationship Specialty Start Date End Date Momo Verdugo MD [address] [place] [address] PCP - General Family Medicine 02/11/24 Zuly Bruno, BA [address] [place] [address] Nurse Practitioner Family Medicine 02/11/24 Kasandra Thomas DO [address] [place] [address] Referring Physician Neurology 02/17/24 Top Cleaner Relationship Specialty Start Date End Date Momo Verdugo MD [address] [place] [address] PCP - General Family Medicine 02/11/24 Zuly Bruno, BA [address] [place] [address] Nurse Practitioner Family Medicine 02/11/24 Kasandra Thomas DO [address] [place] [address] Referring Physician Neurology 02/17/24 Top Cleaner Relationship Specialty Start Date End Date Momo Verdugo MD [address] [place] [address] PCP - General Family Medicine 02/11/24 Zuly Bruno NP [address] [place] [address] Nurse Practitioner Family Medicine 02/11/24 Kasandra Thomas DO [address] [place] [address] Referring Physician Neurology 02/17/24 Top Cleaner Relationship Specialty Start Date End Date Momo Verdugo MD [address] [place] [address] PCP - General Family Medicine 02/11/24 Momo Verdugo MD [address] [place] [address] PCP - [employer] 12/31/24 Zuly Bruno NP [address] [place] [address] Nurse Practitioner Family [facility] 02/11/24 Kasandra Thomas DO [address] [place], [place] [address] Referring Physician Neurology 02/17/24 Top Cleaner Relationship Specialty Start Date End Date Momo Verdugo MD [address] [place] [address] PCP - General Family Medicine 02/11/24 Momo Verdugo MD [address] [place] [address] PCP - [employer] 12/31/24 Zuly Bruno, BA [address] [place] [address] Nurse Practitioner Family Medicine 02/11/24 Kasandra Thomas DO [address] [place] [address] Referring Physician Neurology 02/17/24 Top Cleaner Relationship Specialty Start Date End Date Momo Verdugo MD [address] [place] [address] PCP - General Family Medicine 02/11/24 Momo Verdugo MD [address] [place] [address] PCP - [employer] 12/31/24 Zuly Bruno, BA [address] [place] [address] Nurse Practitioner Family Medicine 02/11/24 Kasandra Thomas DO [address] [place] [address] Referring Physician Neurology 02/17/24 Top Cleaner Relationship Specialty Start Date End Date Momo Verdugo MD [address] [place] [address] PCP - General Family Medicine 02/11/24 Momo Verdugo MD [address] [place] [address] PCP - [employer] 12/31/24 Zuly Bruno NP [address] [place] [address] Nurse Practitioner Family Medicine 02/11/24 Kasandra Thomas DO [address] [place], [place] [address] Referring Physician Neurology 02/17/24 Top Cleaner Relationship Specialty Start Date End Date Momo Verdugo MD [address] [place] [address] PCP - General Family Medicine 02/11/24 Momo Verdugo MD [address] [place] [address] PCP - [employer] 12/31/24 Zuly Bruno NP [address] [place] [address] Nurse Practitioner Family Medicine 02/11/24 Kasandra Thomas DO [address] [place] [address] Referring Physician Neurology 02/17/24 Top Cleaner Relationship Specialty Start Date End Date Zuly Bruno CNP PCP - General 07/19/18 Top Cleaner Relationship Specialty Start Date End Date Momo Verdugo MD [address] [place] [address] PCP - General Family Medicine 02/11/24 Momo Verdugo MD [address] [place] [address] PCP - [employer] 12/31/24 Zuly Bruno, BA [address] [place] [address] Nurse Practitioner Family Medicine 02/11/24 Kasandra Thomas DO [address] [place], [place] [address] Referring Physician Neurology 02/17/24 Top Cleaner Relationship Specialty Start Date End Date Momo Verdugo MD [address] [place] [address] PCP - General Family Medicine 02/11/24 Momo Verdugo MD [address] [place] [address] PCP - [employer] 12/31/24 Zuly Bruno, GLUE SIZE MACHINE OPERATOR [address] [place] [address] Nurse Practitioner Family Medicine 02/11/24 Kasandra Thomas DO [address] [place], [place] [address] Referring Physician Neurology 02/17/24 Top Cleaner Relationship Specialty Start Date End Date Momo Verdugo MD [address] [place] [address] PCP - General Family Medicine 02/11/24 Momo Verdugo MD [address] [place] [address] PCP - [employer] 12/31/24 Zuly Bruno NP [address] [place] [address] Nurse Practitioner Family Medicine 02/11/24 Kasandra Thomas DO [address] [place] [address] Referring Physician Neurology 02/17/24 Team Status: Active Member Role Status Dates JONATHAN Irvin Primary Care Provider Active Team Status: Inactive Member Role Status Dates JONATHAN Irvin Primary Care Provider Active Start: August 10, 2025 End: August 10, 2025 JONATHAN Irvin Attending Provider Active Start: August 10, 2025 End: August 10, 2025 Top Cleaner Relationship Specialty Start Date End Date Zuly [...] Intravenous, at 20 mL/hr, NEEDED, Starting on Amrta 05/15/22 at 2206, Until Thu05/20/22 at 2110, [...] at 0900, Until Discontinued, On hold since [facility] 01/21/2024 at 0802 until manually unheld 0802 [...] - Provider: Terra Heart RN)1053 ([facility] Hold - Provider: Automatic Transfer - Reason: Transfer to a Procedural area)1414 ([facility] Unhold - Provider: Automatic Transfer) 0920 [...] - Provider: Terra Heart RN)1053 ([facility] Hold - Provider: Automatic Transfer - Reason: Transfer to a Procedural area)1414 ([facility] Unhold - Provider: Automatic Transfer) 0920 [...] sources in 24 hours. 1053 ([facility] Hold - Provider: Automatic Transfer - Reason: Transfer to a Procedural area)1414 ([facility] Unhold - Provider: Automatic Transfer)1806 (Given [...] and Simethicone 20 mg) 1053 ([facility] Hold - Provider: Automatic Transfer - Reason: Transfer to a Procedural area)1414 ([facility] Unhold - Provider: Automatic Transfer) guaiFENesin (ROBITUSSIN) oral solution 400 mg 400 mg, Oral, EVERY 6 HOURS NEEDED, Starting on 01/16/24 at 0202, Until 01/23/24 at 1752, Cough, Congestion 1053 ([facility] Hold - Provider: Automatic Transfer - Reason: Transfer to a Procedural area)1414 ([facility] Unhold - Provider: Automatic Transfer) HYDROmorphone [...] 01/23/24 at 1752, Insomnia 1053 ([facility] Hold - Provider: Automatic Transfer - Reason: Transfer to a Procedural area)1414 ([facility] Unhold - Provider: Automatic Transfer)2355 (Given - Provider: Tati Ahmadi RN) Ondansetron (ZOFRAN) tablet 4 mg(Linked Group 1) 4 mg, Oral, EVERY 6 HOURS NEEDED, Starting on 01/16/24 at 0202, Until 01/23/24 at 1752, Nausea / Vomiting, 1st line for Nausea/Vomiting 1053 ([facility] Hold - Provider: Automatic Transfer - Reason: Transfer to a Procedural area)1414 ([facility] Unhold - Provider: Automatic Transfer)1809 (See [...] BE BASED ON THE PRIMARY CLINICAL RECORDS. [employer] provides no warranty or guarantee of the accuracy or completeness of information in this document.
[2025-09-13 07:21] LABS: Hematocrit 48.0 % (42.0-54.0); Hemoglobin 16.3 g/dL (14.0-18.0); Immature Granulocytes Abs Auto 0.01 10^3/uL (0.00-0.03); Immature Granulocytes Pct Auto 0.2 % (0.0-0.5); Lymphocytes Absolute Auto 1.5 10^3/uL (1.2-3.8); Mean Corpuscular HGB Conc 34.0 g/dL (29.9-35.2); Mean Corpuscular Hemoglobin 29.3 pg (25.9-34.0); Mean Corpuscular Volume 86.3 fL (80.0-94.0); Platelet Count 234 10^3/uL (150-450); Red Blood Count 5.56 10^6/uL (4.70-6.10); White Blood Count 5.4 10^3/uL (4.0-11.0)
[2025-09-13 07:55] LABS: Magnesium 1.8 mg/dL (1.8-2.4)
[2025-09-13 08:03] LABS: Alanine Aminotransferase 25 U/L (16-63); Albumin Level 4.1 g/dL (3.4-5.0); Alkaline Phosphatase 91 U/L (46-116); Anion Gap 14.2; Aspartate Amino Transferase 18 U/L (15-37); Blood Urea Nitrogen 16.0 mg/dL (7.0-18.0); Calcium 9.2 mg/dL (8.5-10.1); Carbon Dioxide 25.4 mmol/L (21.0-32.0); Chloride 107 mmol/L (98-107); Cholesterol 97 mg/dL (<=200); Estimated GFR (African America >60 (>=60 mL/min/1.73m^2); Estimated GFR (Non-African Ame >60 (>=60 mL/min/1.73m^2); Gamma Glutamyl Transpeptidase 18 U/L (15-85); Glucose 121 mg/dL (74-106); HDL Cholesterol 43 mg/dL (40-60); Potassium 3.6 mmol/L (3.5-5.1); Sodium 143 mmol/L (136-145); Triglycerides 59 mg/dL (<=150); VLDL CHOLESTEROL 11.8 mg/dL
[2025-09-13 08:39] LABS: Protein Creatinine Ratio Urine 0.13; Total Protein Urine Random 16.7 mg/dL (<=11.9)
== END 2025-09-13 06:45 | disposition home or self-care (01) ==
LOC: LAB 06:45
PROVIDERS: PCP Nurse Practitioner
DX: Z12.5 Encounter for screening for malignant neoplasm of prostate (principal); Z94.4 Liver transplant status; Z94.0 Kidney transplant status; Z48.298 Encounter for aftercare following other organ transplant; Z79.899 Other long term (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; Z51.81 Encounter for therapeutic drug level monitoring
CPT/HCPCS: 36415; 80048; 80061; 80197; 82042; 82247; 82248; 82570; 82977; 83735; 84075; 84100; 84156; 84450; 84460; 85025; G0103

== ENCOUNTER 2025-10-04 06:55 | Outpatient (OUT) | payer MEDICARE, SELFPAY ==
--- OUTSIDE RECORDS SUMMARY | 2025-09-20 07:00 | XMS_ITS | Encounter Summary ---
Author Organization [facility] enter Address [address] [place] [address] Care Team Providers Care Sleeping Bag Filler Name Role Phone Kiana Mihaela RIVAS Primary Care Provider [phone] Reason for Visit * ReasonCommentsLiver Recipient Follow-up Encounter Details DateTypeDepartmentCare Team (Latest Contact Info)Jdtebonyblr89/22/2025 8:00 AM EDTOffice Visit [facility] [address] [place] [address] Christiane Ramsey MD [address] [place] [address] High risk medication use (Primary Dx); Therapeutic drug monitoring; Immunosuppressed status; Liver transplant recipient Social History Tobacco UseTypesPacks/DayYears UsedDateSmoking Tobacco: ZnonauDthbcxnxjo379.8 07/19/1988 - 05/14/2018Smokeless Tobacco: FormerChewQuit: 07/19/1994Alcohol Use Standard Drinks/WeekCommentsNot Currently2 (1 standard drink = 0.6 oz pure alcohol)stopped 05/14/2018Sex and Gender InformationValueDate RecordedSex Assigned at BirthNot on fileLegal RtdXxxm3907/05/2018 9:29 AM EDTGender Identity Male07/07/2018 3:49 PM EDTSexual KneifwtlvsvEsgurgxw54/17/2022 3:40 PM EST documented as of this encounter Last Filed Vital Signs Vital SignReadingTime TakenCommentsBlood Bxjvxuvy210/7809/20/2025 7:56 AM EDT Jlziw196209/20/2025 7:56 AM JBNSojobnjdniz18.7 ??C (98.1 ??F)09/20/2025 7:56 AM EDTRespiratory Rate--Oxygen Saturation--Inhaled Oxygen Concentration--Kskoqk22.3 kg (207 lb 12.8 oz)09/20/2025 7:56 AM MZIJuujmu306.2 cm (5' 7 )09/20/2025 7:56 AM EDTBody Mass Index32.5509/20/2025 7:56 AM EDTdocumented in this encounter Functional Status * Are you deaf or do you have serious difficulty hearing?AnswerDate of WcxtkblwdfAswvugJj55/17/2024 1:01 AM Izzy Gutierrez RN * Are you blind or do you have serious difficulty seeing, even when wearing glasses?AnswerDate of NmakupherqUwsbozIk46/17/2024 1:01 AM Izzy Gutierrez RN * Do you have serious difficulty walking or climbing stairs (5 years or older)? AnswerDate of NdpbccygabZwqcrdVp83/17/2024 1:01 AM Izzy Gutierrez RN * Do you have difficulty dressing or bathing (5 yrs or older)?AnswerDate of AwxqibkpmqZefnqjPv40/17/2024 1:01 AM Izzy Gutierrez RN * Because of a physical, mental, or emotional condition, do you have difficulty doing errands alone such as visiting a doctor's office or shopping (5 yrs or older)?AnswerDate of YuyzztkprvJvmhsaXe41/17/2024 1:01 AM Izzy Gutierrez RN documented as of this encounter Mental Status * Because of a physical, mental, or emotional condition, do you have serious difficulty concentrating, remembering, or making decisions (5 yrs or older)? AnswerEntry CazvPsxtdhMp34/17/2024 1:01 AM Izzy Gutierrez RN documented in this encounter Patient Instructions * Patient Instructions* Jimy Suárez RN - 09/20/2025 8:00 AM EDT - Return to clinic in [address] Ramsey. - Continue checking labs every 3 months. Sent with new standing lab order. - No medication changes documented in this encounter Progress Notes * Anayeli Arana RN - 09/20/2025 8:00 AM EDT Images from the original note were not included. PREP SHEET FOR LIVER SURGERY & [facility] Patient Name: Esteban Styles ([id number]) Astronomy Department Chair: Anayeli Arana Transplant Hvac Residential Service Technician: Christiane Hilario IMMUNOSUPPRESSION & LAB INFORMATION On Prednisone? no Current Immunosuppressive Medication(s) Immunosuppressive Agents Mycophenolate sodium (MYFORTIC) [address] tablet DR Take 1 tablet by mouth every 12 hours. Tacrolimus (PROGRAF) 0.5 MG capsule Take 1 capsule by mouth every morning and take 1 capsule by mouth every evening. Current lab frequency ordered: Q3 Months Labs needed in clinic today? no (if a K/L please review Nephrology protocol for 1st year lab schedule) New standing lab order needed? Yes - located in letters dated 08/11/25 - the one time labs on that order have already been done by his lab and resulted. Preferred lab: [facility] NOTES FOR APPOINTMENT: - Patient is an SLK - Lab results from 09/13/25: Creat was 1.04, Tac was 5.3 - Itraconazole was stopped in 08/2024 - Histoplasmosis treatment is now complete. - Please make sure the patient makes follow up appts with Dr. Ramsey and Rebeca Gutierrez (for the kidney) in the next year. On DGF Protocol? Discontinued Dialysis discontinued by Dr. Munoz on 04/26/20 due to recovered graft function HLA Match: A1 B2 DR1 Living Donor? no Increased Risk donor? no EBV IgG Donor / Recipient D+ / R+ CMV IgG Donor / Recipient: D- / R- Ureteral Stent? Was removed on 05/23/20 Removed 05/23/20 Hepatitis C+/KUMAR- donor? no Hepatitis C+/KUMAR+ donor? no * Ophelia Kan MD - 09/20/2025 8:00 AM EDT [facility] History of Present Illness Esteban Styles is a 55 y.o. male who presents to the [facility] today for follow-up of post liver transplant. I have reviewed his medical, surgical, family and social history and have updated medication and allergy information in the computerized patient record. I have also personally reviewed pertinent outside hospital documentation, laboratory results and imaging as outlined below. Esteban Styles with a history of EtOH cirrhosis [...] on Itraconazole for at least a year. Then admitted for acute hypoxic respiratory failure due to a heart failure exacerbation thought to be due to high flow from his AVF which was ligated. Interval history: He does complain of left arm numbness, and index finger pain. He attributes this to fistula ligation (2023). He is on gabapentin 400 mg with no significant improvement. Patient today denies any symptoms of heart failure. He remains on torsemide 20 mg, and expressed not wanting to reduce it or discontinue it. He is also following with urology for BPH, and is on tamsulosin. Of note, patient did have nephrostomy tubes placed in 2021 for ureteral stone, they have since been removed he denies any symptoms. Hefollows with transplant neph and remains on bactrim ppx. Patient reports never missing transplant medications (MMF 360 BID, Tacro 0.5 BID) and has no side effects except for mild tremor. Patients labs show normal renal/hepatic function. Patient denies any chest pain, SOB, jaundice, pruritus, abdominal pain, N/V/D, dysuria, fevers, chills, night sweats, unintentional weight loss, GIB, rashes/skin lesions. Patient is due for pneumococcal/flu/zoster vaccines. DEXA 08/2024 showed osteoporosis, he is on alendronate, Vit D /calcium . He has not seen dermatology for skin checks. Patient denies any alcohol use(last drink 2017), smoking or illicit substances.Colonoscopy at [facility] done 11/2024, they recommended repeat in 5 years Past Medical History Past Medical History: Diagnosis Date Acute renal failure CAD (coronary artery disease) Cirrhosis Dialysis patient T, Th, Sa- Started 06/01/2018 End stage renal disease 06/01/2018 Essential hypertension, benign Hepatic encephalopathy History of blood transfusion Liver cirrhosis Past Surgical History Past Surgical History: Procedure Laterality Date LIGATION ANGIOACCESS AVF Left 01/22/2024 Laterality: Left; Surgeon: Jyoti Bryant MD, PhD; Location: [facility] MAIN OR PLACEMENT NEPHROSTOMY CATHETER PERCUTANEOUS W/ IMAGE GUIDANCE 05/17/2022 Surgeon: Enzo Heart DO; Location: [facility] INTERVENTIONAL RADIOLOGY (VIR) LIVER TRANSPLANT, ORTHOTOPIC N/A 04/12/2020 Laterality: N/A; Surgeon: LU Palma; Location: [facility] SAME DAY SURGERY MAIN OR KIDNEY TRANSPLANT W/O TANACROSS NEPHRECTOMY N/A 04/12/2020 Laterality: N/A; Surgeon: LU Palma; Location: [facility] SAME DAY SURGERY MAIN OR [...] date: 07/19/1988 Quit date: 05/14/2018 Years since quittin.3 Smokeless tobacco: Former Types: Chew Quit date: 07/19/1994 Substance Use Topics Alcohol use: Not Currently Alcohol/week: 2.0 standard drinks of alcohol Types: 2 Cans of beer per week Comment: stopped 05/14/2018 Drug use: No Medications Current Outpatient Medications Medication Sig alendronate 70 MG tablet Take 1 tablet by mouth every 7 days. Allopurinol 100 MG tablet Take 2 tablets by mouth daily. amLODIPine 10 MG tablet Take 1 tablet by mouth daily every morning. aspirin 81 MG Chew Tab chewable tablet Chew 1 tablet daily. Last refill from our office. Medicationcan be purchased over the counter going forward. Atorvastatin 20 MG tablet Take 1 tablet by mouth at bedtime. Ergocalciferol 1.25 MG (96909 UT) capsule Take 1 capsule by mouth once a week. faMOTIdine 20 MG tablet Take 1 tablet [...] take 1 capsule by mouth every evening. tadalafil 10 MG tablet Take 1 tablet by mouth as needed for Erectile Dysfunction. Tamsulosin HCl 0.4 MG capsule Take 1 capsule by mouth 2 times daily. Torsemide 20 MG tablet TAKE 1 TABLET BY MOUTH DAILY ursodiol 300 MG capsule Take 2 capsules by mouth every 12 hours. Review of Systems Negative except for symptoms listed above Physical Exam Vitals: 09/20/25 0756 BP: 160/78 Pulse: 91 Temp: 98.1 ??F (36.7 ??C) Constitutional: Well developed, well nourished male in no acute distress. Oriented to person, place, and time. HEENT: Normocephalic, pupils equal and round, negative for any scleral icterus. Cardiovascular: Regular rate and rhythm Pulmonary: No increased work of breathing. Abdominal: Well [...] record. Lab Results Component Value Date SODIUM 143 09/13/2025 POTASSIUM 3.6 09/13/2025 CHLORIDE 107 09/13/2025 CO2 25.4 09/13/2025 BUN 16 09/13/2025 CREATSERUM 1.04 09/13/2025 Lab Results Component Value Date WBC 5.4 09/13/2025 HGB 16.3 09/13/2025 HCT 48.0 09/13/2025 PLATELET 234 09/13/2025 MCV 88.1 01/23/2024 Lab Results Component Value Date ALT 25 09/13/2025 AST 18 09/13/2025 GGT 18 09/13/2025 ALKPHOS 91 09/13/2025 BILITOTAL 1.1 09/13/2025 BILIDIRECT 0.3 09/13/2025 Explant Pathology Pathologic Diagnosis A. [place] liver, orthotopic liver transplant resection (1458 gram): [...] pressures. 5. Small mostly posterior pericardial effusion. MR with and without contrast 07/26/24: No focal or enhancing liver lesion identified CT A/P without IV contrast (01/17/2024): 1. [...] repeat recommended in 3-5years Assessment In summary, Esteban Styles is a 55 y.o.male with a history of EtOH cirrhosis [...] of his transplanted liver. IS: Tacrolimus 0.5mg daily (5.3, 09/13/25) Mycophenolate 360 mg BID Plan - IS as noted above. - Continue laboratory monitoring per protocol, every 3 months. - Patient to discuss with PCP about increasing gabapentin for left arm nerve pain - PCP to follow up elevated BP - He stopped Itraconazole for disseminated histoplasmosis. - Incisional hernia: Would like to defer repair at this time. Discussed signs of incarcerated hernia that would prompt more urgent eval. - Health maintenance: annual Derm (encourages to reschedule which he prefers to do locally), lipidsevery 6 months, annual spot prot/cr ratio, DEXA every 2 years, TSH, vitamin D which can be arrangedthrough his primary care physicians. - Last colonoscopy 11/2024 OSH, per patient no polyps and they recommended repeat on 11/2029 - Continue follow up with transplant Nephrology - Follow up in 1 year. Patient was staffed with attending book shelver Dr. Ramsey. Ophelia Kan MD Transplant Hepatology Fellow, PGY 6 Division of Gastroenterology, Hepatology & Nutrition Department of Internal Medicine [facility] Pager [phone] or Epic Chat with questions * Jimy Suárez RN - 09/20/2025 8:00 AM EDT Images from the original note were not included. Nursing Assessment In Clinic Patient is accompanied to clinic today by: self Did patient require a wheelchair or medical transport for appointment: no Is patient employed: no (Needed for [employer] forms) VITALS BP Readings from Last 3 Encounters: 09/20/25 160/78 08/11/25 130/81 06/17/24 143/75 Pulse Readings from Last 3 Encounters: 09/20/25 91 08/11/25 102 06/17/24 53 Wt Readings from Last 6 Encounters: 09/20/25 94.3 kg (207 lb 12.8 oz) 08/11/25 93.8 kg (206 lb 14.4 oz) 09/05/24 87.1 kg (192 lb) 06/17/24 85.2 kg (187 lb 14.4 oz) 06/17/24 85.2 kg (187 lb 14.4 oz) 02/26/24 83.7 kg (184 lb 8 oz) Body mass index is 32.55 kg/m??. Lab Results Component Value Date GLUCOSE 121 09/13/2025 Lab Results Component Value Date HGBA1C 6.0 (H) 06/12/2022 IMMUNOSUPPRESSION Current Immunosuppressive Medication(s) Immunosuppressive Agents Mycophenolate sodium (MYFORTIC) [address] tablet DR Take 1 tablet by mouth every 12 hours. Tacrolimus (PROGRAF) 0.5 MG capsule Take 1 capsule by mouth every morning and take 1 capsule by mouth every evening. PREFERRED LAB AND PHARMACY: [facility] [address], [address] [place] [address] [facility]/pharmacy #[id number] [place] [id number] - [address] [facility] [address] [place] [id number] [facility] [address], [address] [facility] [address] [facility] - [place] [address] - [address] [facility] [address] ROS and SCREEN: Chest Pain: negative Cough: negative SOB: negative Abd Pain: negative Nausea: negative Vomiting: negative Diarrhea: negative Constipation: negative Dysuria: negative Edema: negative Tremors: negative Headaches: negative Wound issues: negative Any diagnosis of cancer/malignancy (any type) in the last year: no Follow with a Care Administrative Tech? yes Have a Primary Care provider? yes Been seen in the last 12 months? yes Alcohol consumption?: no Cigarette smoking, smokeless tobacco or vaping/e-cigarette use?: no Marijuana (any form), CBD oil or street drug use?: no QUESTIONS OR CONCERNS TO ADDRESS WITH PHYSICIAN: * Christiane Ramsey MD - 09/20/2025 8:00 AM EDT ATTENDING STATEMENT: Patient's history and physical exam reviewed with the fellow. All pertinent laboratory data, imaging and procedures have been reviewed. I have reviewed the fellow's documentation and have made appropriate changes. I agree with the fellow's dictated impression and plan as outlined below. In summary, Esteban Styles is a 55 y.o.male with a history of EtOH cirrhosis and HTN CKD s/p SLK (03/2020). 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 No recent complications, and he is doing well today. No changes to IS. Continue labs every 3 months. Christiane Ramsey MD Senior Mechanical Engineer of Internal Medicine Division of Gastroenterology, Hepatology, and Nutrition documented in this encounter Plan of Treatment DateTypeDepartmentCare Team (Latest Contact Info)Ykpxaazrrtj06/28/2026 8:00 AM EDTOffice Visit [facility] [address] [place] [address] 09/26/2026 1:00 PM EDTOffice Visit [facility] [address] [place] [address] Rebeca Gutierrez, COLLECTIONS CLERK-MEDICAL SUPPLY TECHNICIAN [address] [place] [address] documented as of this encounter Visit Diagnoses Diagnosis High risk medication use- Primary Encounter for long-term (current) use of other medications Therapeutic drug monitoring Encounter for therapeutic drug monitoring Immunosuppressed status Unspecified disorder of immune mechanism Liver transplant recipient documented in this encounter Care Teams Team MemberRelationshipSpecialtyStart DateEnd Date Mihaela Bruno CNP PCP - General07/19/18documented as of this encounter
--- OUTSIDE RECORDS SUMMARY | 2025-09-27 22:59 | XMS_ITS | Continuity of Care Document ---
Author Organization [facility] Address [address] 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 [address]- Encounter Diagnosis History of kidney stones(Discharge Diagnosis) - 09/27/25 Weak urine stream(Discharge Diagnosis) - 09/27/25 Erectile dysfunction(Discharge Diagnosis) - 09/27/25 Screening PSA (prostate specific antigen)(Discharge Diagnosis) - 09/27/25 History of kidney transplant(Discharge Diagnosis) - 09/27/25 BPH with urinary obstruction(Discharge Diagnosis) - 09/27/25 History of prostatitis(Discharge Diagnosis) - 09/27/25 Discharge Disposition: Home (Routine DC) Attending Physician: Clementina James Encounter Type: Clinic Allergies, Adverse Reactions, Alerts SubstanceCriticalitySeverityReactionReaction SeverityStatusshellfishAnaphylaxis Active Treatment Plan Diagnostic Tests Pending * PSA Total 11/30/25 Immunizations Given and Recorded VaccineDateStatusRefusal Reasoninfluenza virus vaccine, vjvlxpfyzbx17/3/24 Recordedinfluenza virus vaccine, lqlxlvwetki54/5/23Recordedinfluenza virus vaccine, inactivated08/28/22Recordedinfluenza virus vaccine, wsuehlfrwag27/1/21 Recordedinfluenza virus vaccine, mqaodemttil74/17/42DlipngnzWOSE-XhP-3 (COVID- 19) mRNA-1273 ycztkho35/1/78CjghntikNKHB-EvA-3 (COVID-19) mRNA-1273 vaccine 02/21/2166NvrgaxwiBQCA-CbX-7 (COVID-19) mRNA-1273 vaccine01/24/21Recorded Medications allopurinol 100 mg Tab 100 mg = 1 tab(s), TAKE 2 TABLETS BY MOUTH DAILY Start Date: 09/08/24 Status: Ordered Medication Dispense Status: Completed Total Allowed Fills: 1 Fills Dispensed: 0 amLODIPine 10 mg Tab 10 mg = 1 tab(s), Oral, Daily, # 30 tab(s), Refills(s) 0 Start Date: 03/23/25 Status: Ordered Medication Dispense Status: Completed Quantity: 30.0 Unit: tab(s) Total Allowed Fills: 1 Fills Dispensed: 0 aspirin 81 mg Oral EC Tab 81 mg = 1 tab(s), Oral, Daily, # 30 tab(s), Refills(s) 0 Start Date: 09/08/24 Status: Ordered Medication Dispense Status: Completed Quantity: 30.0 Unit: tab(s) Total Allowed Fills: 1 Fills Dispensed: 0 Cialis 10 mg Tab 10 mg = 1 tab(s), Oral, As Directed, take 1 tab at least 1 hr prior to intercourse, do not exceed 20 mg (2 tab) in 24 hrs, # 30 tab(s), Refills(s) 5, Pharmacy: Risk Ident [facility] #[id number], 170, cm, 11/22/24 9:39:00 EST, Height/Length Dosing, 90, kg, 11/22/24 9:39:00 EST, Weight Dosing Start Date: 11/22/24 Status: Ordered Medication Dispense Status: Completed Quantity: 30.0 Unit: tab(s) Total Allowed Fills: 6 Fills Dispensed: 0 famotidine 20 mg Tab 20 mg = 1 tab(s), TAKE 1 TABLET BY MOUTH TWICE DAILY (IN THE MORNING and BEFORE bedtime) Start Date: 09/08/24 Status: Ordered Medication Dispense Status: Completed Total Allowed Fills: 1 Fills Dispensed: 0 gabapentin 400 mg Cap take 1 capsule by mouth at bedtime Start Date: 09/08/24 Status: Ordered Medication Dispense Status: Completed Total Allowed Fills: 1 Fills Dispensed: 0 melatonin 3 mg oral disintegrating strip mg EA, Oral, Refills(s) 0 Start Date: 09/08/24 Status: Ordered Medication Dispense Status: Completed Total Allowed Fills: 1 Fills Dispensed: 0 mycophenolic acid 360 mg oral enteric coated tablet 720 mg = 2 tab(s), Refills(s) 0 Start Date: 09/08/24 Status: Ordered Medication Dispense Status: Completed Total Allowed Fills: 1 Fills Dispensed: 0 ondansetron 4 mg Dis Tab Take 1 tablet by mouth every 8 hours if needed for nausea or vomiting for up to 10 days Start Date: 09/08/24 Status: Ordered Medication Dispense Status: Completed Total Allowed Fills: 1 Fills Dispensed: 0 polyethylene glycol 3350 17 gram packet gm, Oral, Daily, Refills(s) 0 Start Date: 09/08/24 Status: Ordered Medication Dispense Status: Completed Total Allowed Fills: 1 Fills Dispensed: 0 sulfamethoxazole-trimethoprim 800 mg-160 mg Tab Refill(s) 0 Start Date: 09/08/24 Status: Ordered Medication Dispense Status: Completed Total Allowed Fills: 1 Fills Dispensed: 0 tacrolimus 0.5 mg oral capsule 60 cap(s), 0 Refill(s), Refills(s) 0 Start Date: 11/22/24 Status: Ordered Medication Dispense Status: Completed Total Allowed Fills: 1 Fills Dispensed: 0 tamsulosin 0.4 mg Cap 0.4 mg = 1 cap(s), Oral, BID, X 90 day(s), # 180 cap(s), Refills(s) 3, Pharmacy: [id number], 170, cm, 09/08/24 14:00:00 EDT, Height/Length Dosing, 90, kg, 09/08/24 14:00:00 EDT, Weight Dosing Start Date: 11/22/24 Stop Date: 11/17/25 Status: Ordered Medication Dispense Status: Completed Quantity: 180.0 Unit: cap(s) Total Allowed Fills: 4 Fills Dispensed: 0 torsemide 20 mg Tab 20 mg = 1 tab(s), TAKE 1 TABLET BY MOUTH ONCE DAILY Start Date: 09/08/24 Status: Ordered Medication Dispense Status: Completed Total Allowed Fills: 1 Fills Dispensed: 0 Problem List ConditionConfirmationCourseEffective DatesStatusHealth StatusInformantAcute kidney injuryConfirmed05/15/22ActiveAlcoholic izsgdvkuv8Glhzkykri50/6/18Active WnfkrlNyqktimmx61/8/19ActiveBenign essential hypertensionConfirmed04/13/23Active BPH with urinary obstructionConfirmedActiveChronic liver fdizknt4Hlhekiohj 06/11/18ActiveChronic renal ebekshrZilmwpcev12/8/19ActiveCoronary arteriosclerosisConfirmed04/13/23ActiveEnd-stage renal xkcvqlk3Xjmbxlkto2/3/18 ActiveErectile dysfunctionConfirmedActiveHepatic dhvhtyypvmbldrRhxnupbwn81/20/18 ActiveHistory of kidney stonesConfirmedActiveHistory of prostatitisConfirmed ActiveHistory of kidney transplantConfirmedActiveProstate cancer screening ConfirmedActiveScreening PSA (prostate specific antigen)ConfirmedActiveWeak urine streamConfirmedActive 1Outside Source Comment: Overview: Added automatically from request for surgery [id number] 2Outside Source Comment: Overview: Added automatically from request for surgery [id number] 3Outside Source Comment: Overview: Added automatically from request for surgery [id number] Procedures ProcedureDateRelated DiagnosisBody SiteStatusColonoscopy12/26/24Completed Esophagogastroduodenoscopy (procedure)12/26/24CompletedKidney [id number] CompletedTransplantation of heqah2199Llwotxbru Social History Social History TypeResponseSmoking StatusFormer smoker, quit more than 30 days ago;Never; Smoking Cessation Yes entered on: 09/27/25Birth SexMaleSex RepresentationMale (finding) Hospital Discharge Instructions Patient Education 09/27/2025 09:34:42 Prostate Cancer Screening Prostate Cancer Screening Prostate cancer screening is testing that is done to check for the presence of prostate cancer in men. The prostate gland is a walnut-sized gland that is located below the bladder and in front of therectum in males. The function of the prostate is to add fluid to semen during ejaculation. Prostatecancer is one of the most common types of cancer in men. Who should have prostate cancer screening? Screening recommendations vary based on age and other risk factors, as well as between the professional organizations who make the recommendations. In general, screening is recommended if: ??? You are age 50 to 70 and have an average risk for prostate cancer. You should talk with your health care provider about your need for screening and how often screening should be done. Because most prostate cancers are slow growing and will not cause , screening in this age group is generally reserved for men who have a 10- to 15-year life expectancy. ??? You are younger than age 50, and you have these risk factors: ??? Having a father, brother, or uncle who has been diagnosed with prostate cancer. The risk is higher if your family member's cancer occurred at an early age or if you have multiple family members with prostate cancer at an early age. ??? Being a male who is Black or is of [place] or sub-Saharan descent. In general, screening is not recommended if: ??? You are younger than age 40. ??? You are between the ages of 40 and 49 and you have no risk factors. ??? You are 70 years of age or older. At this age, the risks that screening can cause are greater than the benefits that it may provide. If you are at high risk for prostate cancer, your health care provider may recommend that you have screenings more often or that you start screening at a younger age. How is screening for prostate cancer done? The recommended prostate cancer screening test is a blood test called the prostate-specific antigen(PSA) test. PSA is a protein that is made in the prostate. As you age, your prostate naturally produces more PSA. Abnormally high PSA levels may be caused by: ??? Prostate cancer. ??? An enlarged prostate that is not caused by cancer (benign prostatic hyperplasia, or BPH). This condition is very common in older men. ??? A prostate gland infection (prostatitis) or urinary tract infection. ??? Certain medicines such as male hormones (like testosterone) or other medicines that raise testosterone levels. A rectal exam may be done as part of prostate cancer screening to help provide information about the size of your prostate gland. When a rectal exam is performed, it should be done after the PSA level is drawn to avoid any effect on the results. Depending on the PSA results, you may need more tests, such as: ??? A physical exam to check the size of your prostate gland, if not done as part of screening. ??? Blood and imaging tests. ??? A procedure to remove tissue samples from your prostate gland for testing (biopsy). This is theonly way to know for certain if you have prostate cancer. What are the benefits of prostate cancer screening? Screening can help to identify cancer at an early stage, before symptoms start and when the cancer can be treated more easily. ??? There is a small chance that screening may lower your risk of dying from prostate cancer. The chance is small because prostate cancer is a slow-growing cancer, and most men with prostate cancer from a different cause. What are the risks of prostate cancer screening? The main risk of prostate cancer screening is diagnosing and treating prostate cancer that would never have caused any symptoms or problems. This is called overdiagnosisand overtreatment. PSA screening cannot tell you if your PSA is high due to cancer or a different cause. A prostate biopsy is the only procedure to diagnose prostate cancer. Even the results of a biopsy may not tell you if your cancer needs to be treated. Slow-growing prostate cancer may not need any treatment other than monitoring, so diagnosing and treating it may cause unnecessary stress or other side effects. Questions to ask your health care provider ??? When should I start prostate cancer screening? What is my risk for prostate cancer? How often do I need screening? What type of screening tests do I need? How do I get my test results? What do my results mean? Do I need treatment? Where to find more information ??? The [place] [employer]: www.cancer.org ??? [employer]: www.auanet.org Contact a health care provider if: ??? You have difficulty urinating. ??? You have pain when you urinate or ejaculate. ??? You have blood in your urine or semen. ??? You have pain in your back or in the area of your prostate. Summary ??? Prostate cancer is a common type of cancer in men. The prostate gland is located below the bladder and in front of the rectum. This gland adds fluid to semen during ejaculation. ??? Prostate cancer screening may identify cancer at an early stage, when the cancer can be treatedmore easily and is less likely to have spread to other areas of the body. ??? The prostate-specific antigen (PSA) test is the recommended screening test for prostate cancer,but it has associated risks. ??? Discuss the risks and benefits of prostate cancer screening with your health care provider. If you are age 70 or older, the risks that screening can cause are greater than the benefits that it may provide. This information is not intended to replace advice given to you by your health care provider. Make sure you discuss any questions you have with your health care provider. Document Revised: 05/12/2022 Document Reviewed: 05/12/2022 [employer] Patient Education ?? 2023 [employer]. Follow Up Care 03/23/2025 08:39:12 With:Jaguar CASTILLO, Clementina Mejias, URL Address: When: Unknown Comments:6 mos?? Patient Care team information Care Team Personnel Name: ZULY HERNANDEZ CNP Position: FT Physician Member Role: Primary Care Physician Address: [address] [place] [address] Telecom: Care Team Related Persons Name: Gian MCCARTNEY Name: GIAN MCCARTNEY Name: NURYS MCCARTNEY Insurance Providers Guarantor name: Health Plan Information #: 1 Payer: [employer] Payer Identifier: [id number] Member Number: [id number] Group Number: [id number] Subscriber Identifier: [id number] Relationship to Subscriber: self Coverage Type: MEDICARE Coverage Verification Date: 25 Telecom: [phone] Address: [facility] [id number] [address]
--- NOTE | 2025-10-04 06:59 | US_ITS ---
The [address] [address] Patient Name: GEORGE MCCARTNEY MRN: [id number] date: 1970 Sex: M Assigned Patient Location: US Current Patient Location: US Accession/Order Number: [id number] Exam Date: 10/04/2025 07:00 Report Date: 10/04/2025 08:50 At the request of: RHODA KINNEY AIR CONDITIONING COIL ASSEMBLER Procedure: US renal BI BILATERAL RENAL AND BLADDER ULTRASOUND CLINICAL HISTORY: History of kidney stones and right renal transplant COMPARISON: CT 05/21/2023 A right renal transplant kidney is present within the pelvis and measures 14.1 cm in craniocaudal dimension. Estimation of renal size of the [place] right kidney is approximately 7 cm. The left kidney measures 7.9 cm in craniocaudal dimension. The [place] kidneys show renal cortical atrophy. An echogenic focus with twinkle artifact is seen at the inferior transplant kidney measuring 8 mm. This suggests a stone. There is also a suspected 9 mm stone at the midpole of the left kidney. A mildly prominent extrarenal pelvis is present at the [place] right kidney. There is mild hydronephrosis and proximal hydroureter at the transplant kidney. No renal mass lesions were imaged. There is no perinephric fluid. The urinary bladder is partially distended with a volume of 265 mL. No contour or intraluminal abnormalities are seen. The prostate is slightly prominent and contains calcification. US/US renal BI IMPRESSION: ATROPHIC GRAYLING KIDNEYS WITH PROMINENT EXTRARENAL PELVIS ON THE RIGHT AND POSSIBLE NEPHROLITHIASIS ON THE LEFT. 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 Impression dictated by: Katie Owens M.D. 10/04/2025 8:50 AM Dictation Location: [place] [address] Electronically authenticated by: [id number] Y Date: 10/04/2025 08:50
--- OUTSIDE RECORDS SUMMARY | 2025-10-04 06:59 | XMS_ITS | Encounter Summary ---
Author Organization [facility] Address [address] [facility] [place] [address] Care Team Providers Care Lodge Sales Associate Name Role Phone Momo Verdugo MD Primary Care Provider [phone] Mihaela Bruno NP Unavailable [phone] Kasandra Thomas DO Unavailable [phone] Momo Verdugo MD Unavailable Encounter Details DateTypeDepartmentCare Team (Latest Contact Info)Jpripqocycd03/07/2024Clinisync Result Encounter [facility] External Department Unsolicited Mihaela Bruno, BA [address] [place] [address] Social History Tobacco UseTypesPacks/DayYears UsedDateSmoking Tobacco: FormerCigarettesQuit: 2018Smokeless Tobacco: NeverAlcohol UseStandard Drinks/WeekCommentsNot Currently 0 (1 standard drink = 0.6 oz pure alcohol)[id number] Health LiteracyAnswerDate RecordedHow often do you need to have someone help you when you read instructions, pamphlets, or other written material from your doctor or pharmacy? Never02/06/2025Humiliation, Afraid, Rape, and Kick questionnaireAnswerDate RecordedWithin the last year, have you been afraid of your partner or ex-partner?No10/27/2023Within the last year, have you been humiliated or emotionally abused in other ways by your partner or ex-partner?No10/27/2023 Within the last year, have you been kicked, hit, slapped, or otherwise physically hurt by your partner or ex-partner?No10/27/2023Within the last year, have you been raped or forced to have any kind of sexual activity by your part ner or ex-partner?10/27/2023Social Connection and Isolation PanelAnswerDate RecordedIn a typical week, how many times do you talk on the phone with family, friends, or neighbors?Once a week02/06/2025How often do you get together with friends or relatives?Once a week02/06/2025How often do you attend nondenominational or jehovah's witness services?Never02/06/2025Do you belong to any clubs or organizations such as nondenominational groups, unions, fraBeckett & Robb or athletic groups, or school groups?No 02/06/2025How often do you attend meetings of the clubs or organizations you belong to?Never02/06/2025re you , , , , never , or living with a partner?Patient xdlcqqiv11/10/2025UDIT-CAnswerDate RecordedQ1: How often do you have a drink containing alcohol?Never02/06/2025Q2: How many drinks containing alcohol do you have on a typical day when you are drinking?Patient does not drink02/06/2025Q3: How often do you have six or more drinks on one occasion?Never02/06/2025Overall Financial Resource Strain (CARDIA) AnswerDate RecordedHow hard is it for you to pay for the very basics like food, housing, medical care, and heating?Not hard at all02/06/2025PHQ-2AnswerDate RecordedPatient Health Questionnaire-2 Wgfho508Finintermountain medical center [place] of Occupational Health - Occupational Stress QuestionnaireAnswerDate RecordedDo you feel stress - tense, restless, nervous, or anxious, or unable to sleep at night because yourmind is troubled all the time - these days?Not at all02/06/2025 Exercise Vital SignAnswerDate RecordedOn average, how many days per week do you engage in moderate to strenuous exercise (like a brisk walk)?0 days02/06/2025On average, how many minutes do you engage in exercise at this level?0 min 03/10/2025Hunger Vital SignAnswerDate RecordedWithin the past 12 months, you worried that your food would run out before you got the money to buymore.Never true02/06/2025Within the past 12 months, the food you bought just didn't last and you didn't have money to get more.Never true02/06/2025PRAPARE - TransportationAnswerDate RecordedIn the past 12 months, has lack of transportation kept you from medical appointments or from getting medications?No 02/06/2025In the past 12 months, has lack of transportation kept you from meetings, work, or from getting things needed for daily living?No02/06/2025 Housing Stability Vital SignAnswerDate RecordedIn the last 12 months, was there a time when you were not able to pay the mortgage or rent on time?No10/27/2023In the last 12 months, how many places have you lived?In the last 12 months, was there a time when you did not have a steady place to sleep or slept in amoretelter (including now)?No10/27/2023Housing Stability Vital SignAnswerDate RecordedIn the last 12 months, was there a time when you were not able to pay the mortgage or rent on time?No02/06/2025In the past 12 months, how many times have you moved where you were living?t any time in the past 12 months, were you homeless or living in a fdc (including now)?No02/06/2025Sex and Gender InformationValueDate RecordedSex Assigned at BirthNot on fileLegal TgrEmdy8802/11/2023 7:07 PM EDTGender IdentityNot on fileSexual OrientationNot on filedocumented as of this encounter Functional Status * AUDIT-C ScoreAnswerDate of IvslxqtgrnVabeeh236/10/2025 6:07 PM Jeannette, Generic * Q1: How often do you have a drink containing alcohol?AnswerDate of Assessment HmedvvDrexx12/10/2025 6:07 PM Jeannette, Generic * Q2: How many drinks containing alcohol do you have on a typical day when you are drinking?AnswerDate of AssessmentAuthorPatient does not drink02/06/2025 6:07 PM Jeannette, Generic * Q3: How often do you have six or more drinks on one occasion?AnswerDate of AwoyxohfykMnygwnMyiyu17/10/2025 6:07 PM Jeannette, Generic * Over the past 2 weeks, how often have you been bothered by any of the following problems?QuestionAnswerDate of AssessmentAuthorLittle interest or pleasure in doing thingsNot at all05/11/2025 10:09 AM Hafsa Ricks MAFeeling down, depressed, or hopelessNot at all05/11/2025 10:09 AM Hafsa Paredes MAPatient Health Questionnaire-2 Ucbdk587 10:09 AM Hafsa Ricks MA * QuestionAnswerDate of AssessmentAuthorTrouble falling or staying asleep, or sleeping too muchNot at all05/11/2025 10:09 AM Hafsa Ricks MA Feeling tired or having little energyNot at all05/11/2025 10:09 AM Hafsa Paredes MAPoor appetite or overeatingNot at all05/11/2025 10:09 AM Hafsa Ricks MAFeeling bad about yourself - or that you are a failure or have let yourself or your family downNot at all05/11/2025 10:09 AM Hafsa Ricks MATrouble concentrating on things, such as reading the newspaper or watching televisionNot at all05/11/2025 10:09 AM Hafsa Ricks, MAMoving or speaking so slowly that other people could have noticed? Or the opposite - being so fidgety or restless that you have been moving around a lot more than usual.Not at all05/11/2025 10:09 AM Hafsa Ricks MAThoughts that you would be better off or hurting yourself in some wayNot at all05/11/2025 10:09 AM EDTHumbarger, Hafsa, MAPatient Health Questionnaire-9 Rjdft769 10:09 AM Hafsa Ricks MA documented as of this encounter Plan of Treatment DateTypeDepartmentCare Team (Latest Contact Info)Iogcvujxavx68/21/2026 9:30 AM EDTOffice Visit [facility] [place] [facility] [address] [place] [address] Tony Hernandez MD [address] [place] [address] documented as of this encounter Procedures Procedure NamePriorityDate/TimeAssociated DiagnosisCommentsVASC US CAROTID ARTERY DUPLEX EAVFSJBDV05/07/2024 11:00 AM EDT documented in this encounter Results * Vascular US carotid artery duplex bilateral (09/05/2024 11:00 AM EDT) Anatomical RegionLateralityModalityNeckUltrasoundSpecimen (Source)Anatomical Location / LateralityCollection Method / VolumeCollection TimeReceived Time 09/05/2024 11:00 AM EDT Narrative 09/05/2024 11:03 AM EDT [facility] ?[address] ? [place] [address] ? Ultrasound Report ? Signed ? Patient: GEORGE STYLES ?MR#: [id number] ?? : 1970 ?Acct:[id number] ?? Age/Sex: 54 / M ?ADM Date: 09/05/24 ?? Loc: RAD ? Attending Dr: Mihaela Bruno NP ? Ordering Physician: Mihaela Bruno NP ?? Date of Service: 09/05/24 ?? Procedure(s): US carotid duplex BI ?? Accession Number(s): [id number] ? cc: Mihaela Bruno NP ? [facility] ? [address] ? [place] [address] ? Patient Name: ?? GEORGE STYLES ? MRN: [id number] ? date: 1970 ?Sex: M ?? Assigned Patient Location: RAD ?? Current Patient Location: RAD ?? Accession/Order Number: [id number] ?? Exam Date: 09/05/2024 ??10:22 ?Report Date: 09/05/2024 ??11:00 ? At the request of: ?? MIHAELA BRUNO ? Procedure: ??US carotid duplex BI ? EXAMINATION: US carotid duplex BI ? HISTORY: Left Carotid bruit, Mixed Hyperlipidemia ? COMPARISON: No relevant comparison available. ? TECHNIQUE: Duplex Doppler ultrasound analysis of carotid and vertebral ?? arteries. . Bilateral carotid arterial duplex examination was performed using ?? B-mode, color flow and spectral analysis. Carotid stenosis is reported ?? according to validated velocity parameters, similar to NASCET criteria. ? FINDINGS: ? RIGHT CAROTID ARTERY ?? Mild atherosclerotic plaque ?? Subclavian: 131.88 cm/s / 11.63 cm/s ?? CCA: Prox: 100.32 cm/s / 15.57 cm/s ?? Mid: 104.26 cm/s / 15.57 cm/s ?? Distal: 87.87 cm/s / 14.11 cm/s ?? BULB: 49.05 cm/s / 8.93 cm/s ?? ICA: Prox: 63.28 cm/s / 11.52 cm/s ?? Mid: 64.57 cm/s / 15.40 cm/s ?? Distal: 47.14 cm/s / 11.98 cm/s ?? ECA: 105.95 cm/s / 7.43 cm/s ?? VERTEBRAL: 49.42 cm/s / 10.66 cm/s ?? ICA/CCA ratio: 0.7 ? LEFT CAROTID ARTERY ?? mild atherosclerotic plaque ?? Subclavian: 141 cm/s / 7 cm/s ?? CCA: Prox: 107.62 cm/s / 14.98 cm/s ?? Mid: 100.42 cm/s / 13.72 cm/s ?? Distal: 91.37 cm/s / 12.42 cm/s ?? BULB: 82.31 cm/s / 7.25 cm/s ?? ICA: Prox: 66.78 cm/s / 16.31 cm/s ?? Mid: 55.13 cm/s / 16.31 cm/s ?? Distal: 77.13 cm/s / 20.19 cm/s ?? ECA: 110.79 cm/s / 9.04 cm/s ?? VERTEBRAL: 38.03 cm/s / 7.50 cm/s ?? ICA/CCA ratio: 0.9 ? US/US carotid duplex BI ?? IMPRESSION: ? 0-49% flow stenosis bilateral internal carotid arteries ? Spectral Doppler US Thresholds (Reference: Wilson CORREIA, et al. Radiology 2000; ?? 214:247-252) ?? Stenosis (%) PSV (cm/sec) VICA/VCCA ?? 0-49 <150 <2.5 50-69 150-225 2.5-4.0 ?? >70 >225 >4.0 ? Electronically authenticated by: GIAN ??JENNIFER ?? Date: 09/05/2024 ??11:00 ? Dictated By: ?Gian Rodriguez M.D. ? Signed By: ?09/05/241102 ? DD/ 1100 ? TD/TT: ? Carbon Cleaner: Procedure Note Radiology, Radiologist, MD - 09/05/2024 [place] [address] Ultrasound Report Signed Patient: GEORGE STYLES#: [id number] : 1970Acct:[id number] Age/Sex: 54 / MADM Date: 09/05/24 Loc: RAD Attending Dr: Mihaela Bruno NP Ordering Physician: Mihaela Bruno NP Date of Service: 09/05/24 Procedure(s): US carotid duplex BI Accession Number(s): [id number] cc: Mihaela Bruno NP [place] [id number] Patient Name: GEORGE STYLES MRN: [id number] date: 1970 Sex: M Assigned Patient [facility]: [facility] Current Patient Location: RAD Accession/Order Number: [id number] Exam Date: 09/05/2024 10:22 Report Date: 09/05/2024 [...] US Thresholds (Reference: Wilson EG, et al. Bltkrmyda8614; 214:247-252) Stenosis (%) PSV (cm/sec) VICA/VCCA 0-49 <150 <2.5 50-69 150-225 2.5-4.0 >70 >225 >4.0 Electronically authenticated by: GIAN RODRIGUEZ Date: 09/05/2024 11:00 Dictated By: Gain Rodriguez M.D. Signed By:09/05/24 1103 DD/ 1100 TD/TT: Carbon Cleaner: Authorizing ProviderResult TypeResult StatusLisa Aicpaladin healthcarez NPIMG US PROCEDURES Final Result documented in this encounter Visit Diagnoses Not on filedocumented in this encounter Additional Health Concerns AssessmentNoted TimePHQ-9 Depression Total Score: 10:49 AM EDT documented as of this encounter Care Teams Team MemberRelationshipSpecialtyStart DateEnd Date Momo Verdugo MD PCP - GeneralFamily Medicine02/11/24 Momo Verdugo MD [address] [facility] [place] [address] PCP - [employer]12/31/24 Mihaela Bruno NP Nurse PractitionerFasomerville hospital Medicine02/11/24 Kasandra Thomas DO [address] [place] [address] Referring PhysicianNeurology02/17/24documented as of this encounter
--- OUTSIDE RECORDS SUMMARY | 2025-10-04 06:59 | XMS_ITS | Clinical Summary ---
Author Organization [facility] Address [address], [address] [place] [address] Care Team Providers Care Technical Buyer Name Role Phone Unavailable Primary Care Provider Unavailabl e Allergies No known active allergies Medications MedicationSigDispense QuantityRefillsLast FilledStart DateEnd DateStatus aspirin 81 MG chewable tablet Take 81 mg by mouth dailyActive midodrine (PROAMATINE) 5 MG tablet Take 10 mg by mouth 3 times daily Prn with dialysisActive lactulose (CEPHULAC) 20 g packet Take 20 g by mouth 3 times dailyActive Multiple Vitamins-Minerals (THERAPEUTIC MULTIVITAMIN-MINERALS) tablet Take 1 tablet by mouth dailyActive magnesium oxide (MAG-OX) 400 MG tablet Take 400 mg by mouth dailyActive sevelamer (RENVELA) 800 MG tablet Take 2 tablets by mouth 3 times daily (with meals)Active folic acid (FOLVITE) 1 MG tablet Take 1 mg by mouth dailyActive vitamin D (CHOLECALCIFEROL) 1000 UNIT TABS tablet Take 1,000 Units by mouth dailyActive rifaximin (XIFAXAN) 550 MG tablet Take 550 mg by mouth 2 times dailyActive POTASSIUM CHLORIDE PO Take 40 mEq by mouth dailyActive b wmdnggv-M-okljc acid (NEPHROCAPS) 1 MG capsule Take 1 capsule by mouth dailyActive Active Problems ProblemNoted DateDiagnosed DateEnd stage renal ktyhnfs9706/22/2018Increased ammonia level06/22/2018 Social History Tobacco UseTypesPacks/DayYears UsedDateSmoking Tobacco: FormerSmokeless Tobacco: NeverAlcohol UseStandard Drinks/WeekCommentsNo0 (1 standard drink = 0.6 oz pure alcohol)Hx of alcoholismSex and Gender InformationValueDate RecordedSex Assigned at BirthNot on fileLegal HljXuum1006/01/2018 11:54 AM EDTGender IdentityNot on fileSexual OrientationNot on file Last Filed Vital Signs Vital SignReadingTime TakenCommentsBlood Ujnisseq800/63012/21/2018 10:50 AM EST Rsiof906012/21/2018 10:50 AM XKDJwqkhimozan57.4 ??C (99.3 ??F)12/21/2018 9:53 AM ESTRespiratory Mgqe065912/21/2018 10:50 AM ESTOxygen Iabnrwfodi22%12/21/2018 10:50 AM ESTInhaled Oxygen Concentration--Uxodsc04.2 kg (174 lb 9.7 oz)11/03/2018 10:56 AM JKKDzucrx032.7 cm (5' 8 )06/22/2018 2:42 PM EDTBody Mass Index26.55 06/22/2018 2:42 PM EDT Plan of Treatment Not on file Insurance
--- OUTSIDE RECORDS SUMMARY | 2025-10-04 06:59 | XMS_ITS | Encounter Summary ---
Author Organization [facility] Address [address] [facility] [place] [address] Care Team Providers Care Service Station Attendant Name Role Phone Momo Verdugo MD Primary Care Provider [phone] Mihaela Bruno NP Unavailable [phone] Kasandra Thomas DO Unavailable [phone] Momo Verdugo MD Unavailable Encounter Details DateTypeDepartmentCare Team (Latest Contact Info)Vgenowjwpqp92/07/2024Clinisync Result Encounter [facility] External Department Unsolicited Mihaela Bruno, BA [address] [place] [address] Social History Tobacco UseTypesPacks/DayYears UsedDateSmoking Tobacco: FormerCigarettesQuit: 2018Smokeless Tobacco: NeverAlcohol UseStandard Drinks/WeekCommentsNot Currently 0 (1 standard drink = 0.6 oz pure alcohol)AqygexB3498 Health LiteracyAnswerDate RecordedHow often do you need [...] relatives?Once a week02/06/2025How often do you attend adventism or sikhism services?Never02/06/2025Do you belong to any clubs or organizations such as adventism groups, unions, fraWerdsmith or athletic groups, or school groups?No 02/06/2025How often do you attend meetings of the clubs or organizations you belong to?Never02/06/2025re you , , , , never , or living with a partner?Patient gccavsap40/10/2025UDIT-CAnswerDate RecordedQ1: How often do you have a [...] heating?Not hard at all02/06/2025PHQ-2AnswerDate RecordedPatient Health Questionnaire-2 Zkrxs098Finthe [facility]opedic [facility] [place] of Occupational Health - Occupational Stress QuestionnaireAnswerDate [...] steady place to sleep or slept in [place]ter (including now)?No10/27/2023Housing Stability Vital SignAnswerDate RecordedIn the last 12 months, was there a time when you were not able to pay the mortgage or rent on time?No02/06/2025In the past 12 months, how many times have you moved where you were living?t any time in the past 12 months, were you homeless or living in a chcf (including now)?No02/06/2025Sex and Gender InformationValueDate RecordedSex Assigned at BirthNot on fileLegal OrlRpzg8602/11/2023 7:07 PM EDTGender IdentityNot on fileSexual OrientationNot on filedocumented as of this encounter Functional Status * AUDIT-C ScoreAnswerDate of KjwafwzfpyQehgmb452/10/2025 6:07 PM Jeannette, Generic * Q1: How often do you have a drink containing alcohol?AnswerDate of Assessment MqoartXthsj93/10/2025 6:07 PM Jeannette, Generic * Q2: How many drinks containing alcohol do you have on a typical day when you are drinking?AnswerDate of AssessmentAuthorPatient does not drink02/06/2025 6:07 PM Jeannette, Generic * Q3: How often do you have six or more drinks on one occasion?AnswerDate of XgmmintjseYxizxiMltqa78/10/2025 6:07 PM Jeannette, Generic * Over the past 2 weeks, how often have you been bothered by any of the following problems?QuestionAnswerDate of AssessmentAuthorLittle interest or pleasure in doing thingsNot at all05/11/2025 10:09 AM Hafsa Ricks MAFeeling down, depressed, or hopelessNot at all05/11/2025 10:09 AM Hafsa Paredes MAPatient Health Questionnaire-2 Xwmyr923 10:09 AM Hafsa Ricks MA * QuestionAnswerDate [...] 10:09 AM EDTHumbarger, Hafsa, MAPatient Health Questionnaire-9 Wnltb081 10:09 AM Hafsa Ricks MA documented as of this encounter Plan of Treatment DateTypeDepartmentCare Team (Latest Contact Info)Yiqlihpgkxk82/21/2026 9:30 AM EDTOffice Visit [facility] [place] [facility] [address] [place] [address] Tony Hernandez MD [address] [place] [address] documented as of this encounter Procedures Procedure NamePriorityDate/TimeAssociated DiagnosisCommentsXR DEXA AXIAL ZXMKXMBC25/07/2024 11:21 AM EDT documented in this encounter Results * XR DEXA AXIAL SKELETON (09/05/2024 11:21 AM EDT)Anatomical RegionLaterality ModalityOtherSpecimen (Source)Anatomical Location / LateralityCollection Method / VolumeCollection TimeReceived Time09/05/2024 11:21 AM EDT Narrative 09/05/2024 11:23 AM EDT [facility] ?[address] ? [place] [address] ?XRay Report ? Signed ? Patient: GEORGE STYLES ?MR#: [id number] ?? : 1970 ?Acct:[id number] ?? Age/Sex: 54 / M ?ADM Date: 09/05/24 ?? Loc: RAD ? Attending Dr: Mihaela Bruno NP ? Ordering Physician: Mihaela Bruno NP ?? Date of Service: 09/05/24 ?? Procedure(s): XR DEXA axial skeleton ?? Accession Number(s): [id number] ? cc: Mihaela Bruno NP ? [facility] ? [address] ? [place] [address] ? Patient Name: ?? GEORGE STYLES ? MRN: [id number] ? date: 1970 ?Sex: M ?? Assigned Patient Location: RAD ?? Current Patient Location: RAD ?? Accession/Order Number: [id number] ?? Exam Date: 09/05/2024 ??10:30 ?Report Date: 09/05/2024 ??11:21 ? At the request of: ?? MIHAELA BRUNO ? Procedure: ??XR DEXA axial skeleton ? EXAMINATION: XR DEXA axial skeleton, 09/05/2024 10:30 AM EDT ? HISTORY: Organ Transplant, Immunocompromised ? COMPARISON: None. ? TECHNIQUE: Dual-energy X-ray absorptiometry (DEXA) bone density study ?? performed ?? for the axial skeleton. ? FINDINGS: ? Bone mineral density of the lumbar spine L2-L4 measures 1.208 g/sq cm for T ?? score -0.3. ? The lowest bone mineral densities the right femoral neck measuring 0.740 g/sq ?? cm. T score -2.5. Osteoporosis ? XR/XR DEXA axial skeleton ?? IMPRESSION: ? Osteoporosis. High fracture risk ? Pharmacologic treatment recommendations ?? * No uniform recommendation applies to all patients. Management plans must be ?? individualized. ?? * Consider initiating pharmacologic treatment in postmenopausal women and men ?? >= 50 years of age who have the following: Primary fracture prevention: ?? * T-score <= - 2.5 at the femoral neck, total hip, lumbar spine, 33% radius (some uncertainty with existing data) by DXA. ?? * Low bone mass (osteopenia: T-score between - 1.0 and - 2.5) at the femoral ?? neck or total hip by DXA with a 10-year hip fracture risk >= 3% or a 10-year major osteoporosis-related fracture risk >= 20% (i.e., clinical vertebral, hip, ?? forearm, or proximal humerus) based on the US-adapted FRAXregistered model. ?? Secondary fracture prevention: ?? * Fracture of the hip or vertebra regardless of BMD [4, 5]. ?? * Fracture of proximal humerus, pelvis, or distal forearm in persons with low ?? bone mass (osteopenia: T-score between - 1.0 and - 2.5). The decision to treat ? should be individualized in persons with a fracture of the proximal humerus, ?? pelvis, or distal forearm who do not have osteopenia or low BMD [12, 13]. ?? Ernestine MS, Jonathan SL, Gabriela KL, Lilo EM, Narendra KG, AJ, Deion ?? ES. ?? The clinician's guide to prevention and treatment of osteoporosis. Osteoporos ?? Int. 2021;33(10):5143-0228. doi: 10.1007/v14441-082-94356-t. Ep2021 ? 28. Erratum in: Osteoporos Int. 2021Jun 26;: PMID: 02689095; PMCID: ?? [id number]. ? Electronically authenticated by: GIAN ??JENNIFER ?? Date: 09/05/2024 ??11:21 ? Dictated By: ?Gian Rodriguez M.D. ? Signed By: ?09/05/241122 ? DD/ 1121 ? TD/TT: ? Survey Researcher: Procedure Note Radiology, Radiologist, MD - 09/05/2024 The [place] [id number] XRay Report Signed Patient: GEORGE STYLES AMR#: [id number] : 1970Acct:[id number] Age/Sex: 54 / MADM Date: 09/05/24 Loc: [facility] Attending Dr: Mihaela Bruno NP Ordering Physician: Mihaela Bruno NP Date of Service: 09/05/24 Procedure(s): XR DEXA axial skeleton Accession Number(s): [id number] cc: Mihaela Bruno NP The [address] [address] Patient Name: GEORGE STYLES MRN: [id number] date: 1970 Sex: M Assigned Patient [facility] Current Patient Location: RAD Accession/Order Number: [id number] Exam Date: 09/05/2024 10:30 Report Date: 09/05/2024 [...] 10-year hip fracture risk >= 3% or v13-vfvz major osteoporosis-related fracture risk >= 20% (i.e., [...] to prevention and treatment of osteoporosis.Osteoporos Int. 2021;33(10):3889-6578. doi: 10.1007/h77004-899-26775-u. Ep. Erratum in: Osteoporos Int. 2021Jun 26;: PMID: 95973499; PMCID: [id number]. Electronically authenticated by: GIAN RODRIGUEZ Date: 09/05/2024 11:21 Dictated By: Gian Rodriguez M.D. Signed By:09/05/24 1123 DD/ 20 TD/TT: Survey Researcher: Authorizing ProviderResult TypeResult StatusLisa [facility]ickirkbride center NPCLINISYNC IMAGING Final Result documented in this encounter Visit Diagnoses Not on filedocumented in this encounter Additional Health Concerns AssessmentNoted TimePHQ-9 Depression Total Score: 10:49 AM EDT documented as of this encounter Care Teams Team MemberRelationshipSpecialtyStart DateEnd Date Momo Verdugo MD PCP - GeneralFamily Medicine02/11/24 Momo Verdugo MD [address] [place] [address] PCP - [employer]12/31/24 Mihaela Bruno NP Nurse PractitionerFamily Medicine02/11/24 Kasandra Thomas DO [address] [place] [address] Referring PhysicianNeurology02/17/24documented as of this encounter
--- OUTSIDE RECORDS SUMMARY | 2025-10-04 06:59 | XMS_ITS | Clinical Summary ---
Author Organization [facility] Address [address] [place] [address] Care Team Providers Care Yard Coupler Name Role Phone Momo Verdugo MD Primary Care Provider [phone] Mihaela Bruno MIXER AND BLENDER Unavailable [phone] Kasandra Thomas DO Unavailable [phone] Momo Verdugo MD Unavailable Allergies Active AllergyReactionsCriticalityNoted DateCommentsShellfish Protein-Containing Drug WsusjnjaNnmpukfuLdfc63/12/2019 Patient with lip and tongue swelling. Medications MedicationSigDispense QuantityRefillsLast FilledStart DateEnd DateStatus aspirin 81 MG chewable tablet Chew 1 tablet DailyActive mycophenolate (Myfortic) 360 MG EC tablet Take 1 tablet by mouth every 12 (twelve) hours09/10/2023ctive ondansetron (Zofran) 4 MG tablet Take 1 tablet by mouth every 8 (eight) hours if needed for nausea or vomiting Active polyethylene glycol, PEG, 3350 (Glycolax) 17 GM/SCOOP powder Take 17 g by mouth in the morning.Active tacrolimus (Prograf) 0.5 MG capsule Indications:Liver Transplant Status,Renal Transplant StatusTake 0.2 mg by mouth every 12 (twelve) hours 5 days a week (Thursday-Thursday)03/10/2023ctive sulfamethoxazole-trimethoprim (Bactrim DS) 800-160 MG per tablet Take 1 tablet by mouth 3 (three) times a week01/22/2024ctive torsemide (Demadex) 20 MG tablet Take 20 mg by mouth in the morning.01/22/2024ctive melatonin [address] 3 mg under the tongue at xkinuyg25/10/2024Active tadalafil (Cialis) 10 MG tablet Take 10 mg by mouth Daily as needed for erectile dysfunctionActive tamsulosin (Flomax) 0.4 MG 24 hr capsule 0.4 mg5Active atorvastatin (Lipitor) 20 MG tablet Take 20 mg by mouth at lbnqtte43/27/2025Active amLODIPine (Norvasc) 10 MG tablet Take 10 mg by mouth in the morning.5Active famotidine (Pepcid) 20 MG tablet Indications:Gastroesophageal reflux disease, unspecified whether esophagitis presentTake 1 tablet (20 mg) by mouth in the morning and 1 tablet (20 mg) before bedtime. 180 tablet 5Active gabapentin (Neurontin) 400 MG capsule Indications:Other polyneuropathyTake 1 capsule (400 mg) by mouth at bedtime 90 capsule 5Active alendronate (Fosamax) 70 MG tablet Indications:Other osteoporosis without current pathological fractureTake 1 tablet (70 mg) by mouth every 7 (seven) days TAKE 1 TABLET BY MOUTH EVERY 7 DAYS ON AN EMPTYSTOMACH, remain upright for at least 30 MINUTES 12 tablet tive ergocalciferol (Vitamin D2) 1.25 MG (71711 UT) capsule Indications:Vitamin D deficiencyTake 1 capsule (1.25 mg) by mouth every 7 (seven) days 12 capsule tive ergocalciferol (Vitamin D-2) 1.25 MG (70466 UT) capsule Indications:Vitamin D deficiencyTake 1 capsule (1.25 mg) by mouth 1 (one) time per week 12 capsule Discontinued alendronate (Fosamax) 70 MG tablet Indications:Other osteoporosis without current pathological fractureTake 1 tablet (70 mg) by mouth every 7 (seven) days 1 tablet weekly on an empty stomach, remain upright for at least 30 minutes 12 tablet /08/2025Discontinued alendronate (Fosamax) 70 MG tablet Indications:Other osteoporosis without current pathological fractureTAKE 1 TABLET BY MOUTH EVERY 7 DAYS ON AN EMPTY STOMACH, remain upright for at least 30 MINUTES 12 tablet Discontinued(Reorder) ergocalciferol (Vitamin D2) 1.25 MG (03251 UT) capsule Indications:Vitamin D deficiencyTAKE 1 CAPSULE BY MOUTH once a week 12 capsule Discontinued(Reorder) Active Problems ProblemNoted DateDiagnosed DateElevated blood uric acid level02/24/2025History of kidney dwqvjkjshy57/12/2025 Assessment & Plan (02/08/2025 6:11 AM EDT): Continues with [facility] transplant team BPH with urinary idltkptqtst06/12/2025Erectile qspzsrpqwlu08/12/2025History of liver qiapgeeoso87/12/2025 Assessment & Plan (02/08/2025 6:12 AM EDT): Continues with [facility] transplant team Other osteoporosis without current pathological lqsedvzx93/10/2024 Overview (09/08/2024): DEXA 09/06/2024: -2.5 osteoporosis Assessment [...] no response as of yet Prostate cancer klmsisepl30/24/2024 Overview (08/29/2024): 08/29/24 0.85 Cuadspg5108/23/2024 Assessment & Plan (08/23/2024 9:28 AM EDT): Check urine and culture Other /24/2024ecreased urine jnzfpo7008/23/20240382Ixhlhc89/28/2024 Weakness uqtyicnnrnb93/21/2024Portal kwuvxlxqkemw98/14/2024 Assessment & Plan (11/07/2024 7:09 AM EST): Stable, continues w hepatology Assessment & Plan (08/23/2024 8:56 AM EDT): Stable, continues w hepatology Left carotid bruit02/11/2024 Overview (09/05/2024): Carotid US: 08/28/2022: no significant blockage 09/05/2024: less than 50% bilat Assessment & Plan (08/23/2024 9:29 AM EDT): Will order updated US , cont statin Assessment & Plan (04/18/2024 10:07 AM EDT): Remains present, no symptoms Last US 2021 Diastolic yukhegagwcz20/14/2024omplication of AV dialysis qbhyxto2002/11/2024 Assessment & Plan (02/11/2024 12:44 PM EDT): This was disabled during his last admission to [facility], as it was causing heart failure symptoms Umbilical roojjv8402/11/2024irrhosis of liver02/11/2024 Assessment & Plan (08/23/2024 6:28 AM EDT): S/p liver transplant Follows yearly with Hepatology Right hehcqcrqznvzcau22/14/8370Qnqrmlrtdptqwv24/14/2024Encounter for subsequent annual wellness visit (AWV) in Medicare hafcvlf6802/11/2024 Assessment & Plan (05/11/2025 6:19 AM EDT): [...] up yearly and prn Heart failure, diastolic, acute01/20/2024 Assessment & Plan (02/13/2024 8:05 AM EDT): Recent hospitalization at [facility] in 12/2023 complications to fistula it was disabled Feeling some better, still weak Result of fistula causing heart failure Assessment & Plan (02/13/2024 8:02 AM EDT): Recent hospitalization at [facility] in 12/2023 complications to fistula it was disabled Feeling some better Pleural effusion on right01/16/20248974Qpfrjpxn62/07/6571Xvlasckugbxv42/07/2024 Assessment & Plan (05/11/2025 10:39 AM EDT): [...] in meds Check echo Bilateral lower extremity edema01/06/2024 Assessment & Plan (02/08/2025 6:08 AM EDT): Current medication: torsemide Limit sodium, elevate legs when you can, compression stockings if needed Assessment & Plan (08/23/2024 9:29 AM EDT): Stable, cont with torsemide Assessment & Plan (02/11/2024 12:44 PM EDT): Stable at this time, weight is lower as well, suspect was related to heart failure Shortness of bwfeya3101/06/2024 Assessment & Plan (01/06/2024 9:47 AM EST): Check ECHO Iiugol1112/10/2023eripheral kodmtbqlwe54/04/2024 Assessment & Plan (05/11/2025 6:17 AM EDT): Current medication is gabapentin OARRS reviewed Assessment & Plan (02/08/2025 6:06 AM EDT): Current medication is gabapentin OARRS reviewed Abdominal pain, zlkdlbaaslw48/05/2023 Assessment & Plan (08/23/2024 9:28 AM EDT): Reviewed labs and MRI report Will refer to GI as well Anemia, dkxpzrmdobr35/05/2023omplication of dialysis access kmiggmepf68/05/2023 Dysfunction of papillary kgdwpw9411/03/2023lood glucose tzeiugyo44/05/2023 Gastroesophageal reflux lexpobn5311/03/2023 Assessment & Plan (05/11/2025 6:18 AM EDT): [...] melissa Will refer to GI Generalized anxiety ovkpsvpp76/05/2023anic disorder without agoraphobia 11/03/2023Obesity (BMI 30-39.9)11/03/2023 Assessment & Plan (05/11/2025 6:19 AM EDT): [...] EST): Recommend weight loss DARLENE (obstructive sleep apnea)11/03/2023 Overview (11/21/2023): Sleep titration study on 11/17/23 [...] to get a sleep titration study completed Nqogco7611/03/2023 Assessment & Plan (01/06/2024 9:46 AM EST): [...] meds Will refer to local neurology Immunodeficiency, frdgagzrzku96/05/2023 Assessment & Plan (02/08/2025 6:10 AM EDT): [...] per transplant services for monitoring and medication Kyykgogzzvwhxn66/12/2023 Assessment & Plan (04/18/2024 10:09 AM EDT): Continue with ID and therapy per their recommendations Assessment & Plan (02/13/2024 8:00 AM EDT): 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 He received this transplant at [facility] and his transplant team is at [facility]. 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 He has an upcoming appt with infectious disease , but is being told that the provider is out of network. It appears that many of the providers he sees at [facility] are out ofnetwork. I am including this documentation to ask for approval for him to see these providers. Normally I would be willing to find a provider in network, however, due to the complexity of this patient's case having had his double organ transplant at [facility], his ongoing complications that he is experiencing as a result of those co morbidities (anti rejection medications etc) I feel medically this is in his best interest to continue to see the team of specialist that are familiar with his case. He is scheduled for a telehealth appt with Dr. Cristóbal Ko on 03/01/24. His NPI number is [id number], [facility] physician NPI number is [id number] Assessment & Plan (02/13/2024 8:10 AM EDT): Left a message for his finish production manager at [facility] ([phone]). He is having trouble getting an approval for an fu appt with ID at [facility]-out of network provider. 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 He received this transplant at [facility] and his transplant team is at [facility]. 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 He has an upcoming appt with infectious disease , but is being told that the provider is out of network. It appears that many of the providers he sees at [facility] are out ofnetwork. I am including this documentation to ask for approval for him to see these providers. Normally I would be willing to find a provider in network, however, due to the complexity of this patient's case having had his double organ transplant at [facility], his ongoing complications that he is experiencing as a result of those co morbidities (anti rejection medications etc) I feel medically this is in his best interest to continue to see the team of specialist that are familiar with his case. He is scheduled for a telehealth appt with Dr. Cristóbal Ko on 03/01/24. His NPI number is [id number], [facility] physician NPI number is [id number] a telemed visit with ID on 03/01/24, have had difficulty with insurance company getting this approved 02/12/24 I did speak with the finish production manager for the patient today at 15;13pm, I will continue working on this getting approved. Over 30 minutes spent with [facility] and [facility] attempting to get to correct NPI numbers etc. No resolution to this situation I am going to place a referral for our referrals department to try to get taken care of. Arteriosclerosis of coronary nhtipe2704/13/2023 Assessment & Plan (05/11/2025 6:18 AM EDT): Recently saw [facility] Cardiology Reviewed notes , increased his amlodipine as well as resumed his statin Resolved Problems ProblemNoted DateDiagnosed DateResolved DateOverweight (BMI 25.0-29.9)04/18/2024 05/11/2025GI kyzlnjdq19ancreatitis (HHS-HCC)02/11/2024 02/11/2024lcoholic cirrhosis of liver with rwhmcct234Acute kidney yehymou21/Stage 4 chronic kidney okbccmh7111/03/2023 05/11/2025Gastrointestinal ajyvlrox07/Kidney mqjvst8911/03/2023 05/11/2025 Assessment & Plan (11/07/2024 2:56 PM EST): Would caution use of calcium d/t this Assessment & Plan (11/03/2023 9:11 AM EST): Has been waiting on refill with [facility], still nothing, will refill flomax Organ rqxkqokzjz77/05/202303/10/2025 Overview (02/11/2024): Kidney and liver Assessment & Plan (04/18/2024 10:10 AM EDT): Kidney and liver, cont with transplant team Assessment & Plan (02/13/2024 8:10 AM EDT): Both kidney and liver Liver transplant lofkcn1502/08/2025 Overview (11/03/2023): Kidney and liver Assessment & Plan (02/11/2024 12:46 PM EDT): Continue with transplant team at [facility] Encounters DateTypeDepartmentCare HotoOnmdifwteox28/21/2025 9:30 AM EDTOffice Visit [facility] [place] [facility] [address] [place] [address] Tony Hernandez MD 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); Vitamin D deficiency; Liver transplant status (HCC); Other osteoporosis without current pathological fracture; Organ cnxzugvclr16/21/2025amboo flowsheet [facility] [address] [place] [address] Tony Hernandez MD 09/12/20258294Jnglmo67/10/2025Refill [facility] [address] [place] [address] Radha Cardona LPN Other osteoporosis without current pathological fracture; Vitamin D jtmjzoepao46/09/2025Refill [facility] [address] [place] [address] Tony Hernandez MD Other osteoporosis without current pathological fracture; Vitamin D tcupnydtzx60/13/2025Refill [facility] [place] [facility] [address] [facility] [place] [address] Mihaela Bruno NP Other sivcajmynmxemu14/06/2025Clinisync Result Encounter [facility] External Department Unsolicited Provider, Generic External Data from Last 3 Months Immunizations ImmunizationAdministration DatesNext DueInfluenza, Klbdpecrddl10/05/2023, 08/28/2022,09/30/2021,10/16/2020Influenza, injectable, MDCK, preservative free, otonzncepngq90/05/2023Influenza, injectable, cvvlmxkbadam54/17/2020Influenza, injectable, quadrivalent, preservative free08/28/2022,09/30/2021Influenza, seasonal, injectable, preservative free11/01/2024Moderna SARS-CoV-2 50mcg/0.5mL Rgmznos1511/03/2023 Family History Medical HistoryRelationNameCommentsDiabetesBrotherDiabetesFatherStrokeFather DiabetesMotherStrokeMotherDiabetesOtherHeart diseaseOtherHyperlipidemiaOther HypertensionOtherStrokeOtherRelationNameStatusCommentsBrotherFatherMotherOther Social History Tobacco UseTypesPacks/DayYears UsedDateSmoking Tobacco: FormerCigarettesQuit: 2018Smokeless Tobacco: Never Tobacco Cessation:Counseling Given: Not Answered Alcohol UseStandard Drinks/WeekCommentsNot Currently0 (1 standard drink = 0.6 oz pure alcohol)EalyuoG9583 Health LiteracyAnswerDate RecordedHow often do you need to have someone help you when you read instructions, pamphlets, or other written material from your doctor or pharmacy?Never02/06/2025Humiliation, Afraid, Rape, and Kick questionnaireAnswerDate RecordedWithin the last year, have you been afraid of your partner or ex-partner?No10/27/2023Within the last year, have you been humiliated or emotionally abused in other ways by your partner or ex-partner?No10/27/2023Within the last year, have you been kicked, hit, slapped, or otherwise physically hurt by your partner or ex-partner?No10/27/2023Within the last year, have you been raped or forced to have any kind of sexual activity by your partner or ex-partner?No10/27/2023Social Connection and Isolation Panel AnswerDate RecordedIn a typical week, how many times do you talk on the phone with family, friends, or neighbors?Once a week02/06/2025How often do you get together with friends or relatives?Once a week02/06/2025How often do you attend mormon or orthodox services?Never02/06/2025Do you belong to any clubs or organizations such as mormon groups, unions, fraternal or athletic groups, or school groups?No02/06/2025How often do you attend meetings of the clubs or organizations you belong to?Never02/06/2025re you , , , , never , or living with a partner?Patient evmsyprc70/10/2025 AUDIT-CAnswerDate RecordedQ1: How often do you have a drink containing alcohol? Never02/06/2025Q2: How many drinks containing alcohol do you have on a typical day when you are drinking?Patient does not drink02/06/2025Q3: How often do you have six or more drinks on one occasion?Never02/06/2025Overall Financial Resource Strain (CARDIA)AnswerDate RecordedHow hard is it for you to pay for the very basics like food, housing, medical care, and heating?Not hard at all 02/06/2025PHQ-2AnswerDate RecordedPatient Health Questionnaire-2 Score0 05/11/2025[facility] [place] [facility] Occupational Health - Occupational Stress QuestionnaireAnswerDate RecordedDo you feel stress - tense, restless, nervous, or anxious, or unable to sleep at night because yourmind is troubled all the time - these days?Not at all02/06/2025Exercise Vital SignAnswerDate RecordedOn average, how many days per week do you engage in moderate to strenuous exercise (like a brisk walk)?0 days02/06/2025On average, how many minutes do you engage in exercise at this level?0 min02/06/2025Hunger Vital SignAnswerDate Recorded Within the past 12 months, you worried that your food would run out before you got the money to buymore.Never true02/06/2025Within the past 12 months, the food you bought just didn't last and you didn't have money to get more.Never true 02/06/2025PRAPARE - TransportationAnswerDate RecordedIn the past 12 months, has lack of transportation kept you from medical appointments or from getting medications?No02/06/2025In the past 12 months, has lack of transportation kept you from meetings, work, or from getting things needed for daily living?No 02/06/2025Housing Stability Vital SignAnswerDate RecordedIn the last 12 months, was there a time when you were not able to pay the mortgage or rent on time?No 10/27/2023In the last 12 months, how many places have you lived?In the last 12 months, was there a time when you did not have a steady place to sleep or slept in tampaelter (including now)?No10/27/2023Housing Stability Vital SignAnswerDate RecordedIn the last 12 months, was there a time when you were not able to pay the mortgage or rent on time?No02/06/2025In the past 12 months, how many times have you moved where you were living?t any time in the past 12 months, were you homeless or living in a residential (including now)?No 02/06/2025Sex and Gender InformationValueDate RecordedSex Assigned at BirthNot on fileLegal YyfYapu7202/11/2023 7:07 PM EDTGender IdentityNot on fileSexual OrientationNot on file Last Filed Vital Signs Vital SignReadingTime TakenCommentsBlood Xopxuvci103/8206 10:38 AM EDT Ymdcf7935/21/2025 9:32 AM NREWpgminhedrq03.1 ??C (98.7 ??F)05/11/2025 10:07 AM EDTRespiratory Vfug9657 9:32 AM EDTOxygen Chtnfbwdct30%09/19/2025 9:32 AM EDTInhaled Oxygen Concentration--Rgotpl56.3 kg (208 lb)09/19/2025 9:32 AM EDT Chazix682.2 cm (5' 7 )09/19/2025 9:32 AM EDTBody Mass Index32.5809/19/2025 9:32 AM EDT Plan of Treatment DateTypeDepartmentCare Team (Latest Contact Info)Mdaejgethrk14/21/2026 9:30 AM EDTOffice Visit [facility] [address] [place] [id number] Tony Hernandez MD [address] [place] [address] Health MaintenanceDue DateLast DoneCommentsCT Klhjoerfhjmd1971FIT-DNA 1971FIT1971FOBT1971 8292Eoyfwnxvplacl1971Pneumococcal Vaccine: Pediatrics (0 to 5 Years) and At-Risk Patients (6 to 64 Years) (1 of 2 - PCV)1990COVID-19 Vaccine ( season), 09/30/2021, 02/21/2021, Additional history existsInfluenza Vaccine (#1) 512/01/2024, 11/03/2023, 11/03/2023, Additional history existsMedicare Annual Wellness (AWV)606/10/2025, 02/11/2024, 4Colonoscopy 5012/26/2024, 12/26/2024, 09/20/2019, Additional history exists Colorectal Cancer Ykbpdwyrm35/27/2035 Procedures Procedure NamePriorityDate/TimeAssociated DiagnosisCommentsMAGNESIUMRoutine 07/05/2025 9:09 AM EDT Other osteoporosis without current pathological fracture TACROLIMUS (FK506), XDPKEKspwjtt77/06/2025 7:05 AM EDT ALL VRZUNOURxyzhul84/06/2025 7:05 AM EDT [facility] ALKALINE OFFWEVVULOCUvfrumy73/06/2025 7:05 AM EDT [facility] OEPIefhjzm66/06/2025 7:05 AM EDT [facility] RCAGgjgxze31/06/2025 7:05 AM EDT ALL GAMMA GLUTAMYL JSBXUOUBVHKSARUwikuzj72/06/2025 7:05 AM EDT METRO BILIRUBIN, XVPUUBCkfeupr71/06/2025 7:05 AM EDT ALL BILIRUBIN,LPWLGFravvoe22/06/2025 7:05 AM EDT ALL PZHDBMWEJUORiipbxr68/06/2025 7:05 AM EDT ALL BASIC METABOLIC NYLEKQmolwyj49/06/2025 7:05 AM EDT ALL OJMFNMODMUtrvvlr31/06/2025 7:05 AM EDT ALL CBC WITH AUTO DUGIJavybmg92/06/2025 7:05 AM EDT TOLRPQFJOAGZtrnvxq30/27/2025 1:58 PM ESTfrom Last 3 Months or Most Recently Relevant to Health Maintenance Results * Magnesium (07/05/2025 9:09 AM EDT)Specimen (Source)Anatomical Location / LateralityCollection Method / VolumeCollection TimeReceived TimeBloodVenous blood specimen / Unknown Narrative Authorizing ProviderResult TypeResult StatusTony Hernandez [facility]DC[facility] BLOOD ORDERABLESFinal ResultPerforming OrganizationAddressCity/State/ZIP CodePhone Number [facility] * TACROLIMUS (FK506), BLOOD (07/05/2025 7:05 AM EDT)ComponentValueRef RangeTest MethodAnalysis TimePerformed AtPathologist SignatureTACROLIMUS (FK506), BLOOD 5.25.0 - 20.0 ng/mLTBHComment: This test was developed and its performance characteristics determined by [facility]. It has not been cleared or approved by the Food and Drug Administration. Target steady state trough concentration for Tacrolimus varies based on type of organ transplant immunosuppressive protocol and other patient specific factors. ??Tacrolimus trough concentrations should be interpreted in conjunction with clinical assessments of rejection and tolerability. ??Values obtained with different assay methods cannot be used interchangeably due to differences in assay methods and cross-reactivty with metabolites, nor should correction factors be applied. ??Therefore, consistent use of one assay for individual patients is recommended. Detection Limit = 0.5 ng/mL Performed by LC-MS/MS technology. Performed at: ?? - [facility] ??[id number] Tech Ed/Woodshop Teacher: Liudmila Kingsley MD, Phone: ??[phone] Specimen (Source)Anatomical Location / LateralityCollection Method / Volume Collection TimeReceived Time07/05/2025 7:05 AM EDT07/05/2025 7:12 AM EDT Narrative [facility] - 07/08/2025 5:08 PM EDT Authorizing ProviderResult TypeResult StatusGeneric External Data ProviderLAB BLOOD ORDERABLESFinal ResultPerforming OrganizationAddressCity/State/ZIP Code Phone Number [facility] * METRO BILIRUBIN, DIRECT (07/05/2025 7:05 AM EDT)ComponentValueRef RangeTest MethodAnalysis TimePerformed AtPathologist SignatureBILIRUBIN DIRECT0.20.0 - 0.2 mg/dLTBHSpecimen (Source)Anatomical Location / LateralityCollection Method / VolumeCollection TimeReceived Time07/05/2025 7:05 AM EDT07/05/2025 7:12 AM EDT Narrative [facility] - 07/05/2025 10:35 AM EDT Authorizing ProviderResult TypeResult StatusGeneric External Data Provider CLINISYNCFinal ResultPerforming OrganizationAddressCity/State/ZIP CodePhone Number [facility] * [facility] ALKALINE PHOSPHATASE (07/05/2025 7:05 AM EDT)ComponentValueRef RangeTest MethodAnalysis TimePerformed AtPathologist SignatureALKALINE [id number] - 116 U/LTBHSpecimen (Source)Anatomical Location / LateralityCollection Method / VolumeCollection TimeReceived Time07/05/2025 7:05 AM EDT07/05/2025 7:12 AM EDT Narrative [facility] CLAREISYNY - 07/05/2025 10:35 AM EDT Authorizing ProviderResult TypeResult StatusGeneric External Data Provider CLINISYNCFinal ResultPerforming OrganizationAddressty/State/ZIP CodePhone Number [facility] * [facility] AST (07/05/2025 7:05 AM EDT)ComponentValueRef RangeTest MethodAnalysis TimePerformed AtPathologist SignatureASPARTATE AMINO [id number] - 37 U/L TBHSpecimen (Source)Anatomical Location / LateralityCollection Method / Volume Collection TimeReceived Time07/05/2025 7:05 AM EDT07/05/2025 7:12 AM EDT Narrative [facility] - 07/05/2025 10:35 AM EDT Authorizing ProviderResult TypeResult StatusGeneric External Data Provider CLINISYNCFinal ResultPerforming OrganizationAddWellSpan Chambers[facility] Hospitalty/State/ZIP CodePhone Number [facility] * [facility] ALT (07/05/2025 7:05 AM EDT)ComponentValueRef RangeTest MethodAnalysis TimePerformed AtPathologist SignatureALANINE [id number] - 63 U/LTBH Specimen (Source)Anatomical Location / LateralityCollection Method / Volume Collection TimeReceived Time07/05/2025 7:05 AM EDT07/05/2025 7:12 AM EDT Narrative [facility] - 07/05/2025 10:35 AM EDT Authorizing ProviderResult TypeResult StatusGeneric External Data Provider CLINISYNCFinal ResultPerforming OrganizationAddWellSpan Chambersburg Hospitalty/State/ZIP CodePhone Number [facility] * (ABNORMAL) ALL PHOSPHOROUS (07/05/2025 7:05 AM EDT)ComponentValueRef RangeTest MethodAnalysis TimePerformed AtPathologist SignaturePHOSPHORUS2.5(L)2.6 - 4.7 mg/dLTBHSpecimen (Source)Anatomical Location / LateralityCollection Method / VolumeCollection TimeReceived Time07/05/2025 7:05 AM EDT07/05/2025 7:12 AM EDT Narrative [facility] - 07/05/2025 10:35 AM EDT Authorizing ProviderResult TypeResult StatusGeneric External Data Provider CLINISYNCFinal ResultPerforming OrganizationAddressty/State/ZIP CodePhone Number [facility] * ALL MAGNESIUM (07/05/2025 7:05 AM EDT)ComponentValueRef RangeTest Method Analysis TimePerformed AtPathologist SignatureMAGNESIUM1.81.8 - 2.4 mg/dLTBH Specimen (Source)Anatomical Location / LateralityCollection Method / Volume Collection TimeReceived Time07/05/2025 7:05 AM EDT07/05/2025 7:12 AM EDT Narrative [facility] - 07/05/2025 8:19 AM EDT Authorizing ProviderResult TypeResult StatusGeneric External Data Provider CLINISYNCFinal ResultPerforming OrganizationAddWellSpan [facility] Hospitalty/State/ZIP CodePhone Number [facility] * ALL GAMMA GLUTAMYL TRANSPEPTIDASE (07/05/2025 7:05 AM EDT)ComponentValueRef RangeTest MethodAnalysis TimePerformed AtPathologist SignatureGAMMA GLUTAMYL BDJFIGEGEYWEFG8564 - 85 U/LTBHSpecimen (Source)Anatomical Location / LateralityCollection Method / VolumeCollection TimeReceived Time07/05/2025 7:05 AM EDT07/05/2025 7:12 AM EDT Narrative [facility] - 07/05/2025 10:35 AM EDT Authorizing ProviderResult TypeResult StatusGeneric External Data Provider CLINISYNCFinal ResultPerforming OrganizationAddressty/State/ZIP CodePhone Number [facility] * ALL CBC WITH AUTO DIFF (07/05/2025 7:05 AM EDT)ComponentValueRef RangeTest MethodAnalysis TimePerformed AtPathologist SignatureTBH WBC5.14.0 - 11.0 10 3/uLTBHTBH RBC5.344.70 - 6.10 10 6/uLTBHTBH HGB15.714.0 - 18.0 g/dLTBHTBH HCT 45.942.0 - 54.0 %TBHTBH MCV86.080.0 - 94.0 fLTBHTBH MCH29.425.9 - 34.0 pgTBH TBH MCHC34.229.9 - 35.2 g/dLTBHTBH RDW12.211.0 - 15.0 %TBHTBH EYZ011420 - 450 10 3/uLTBHTBH MPV9.89.5 - 13.5 fLTBHNEUTROPHILS PERCENT AUTO53.543.0 - 75.0 % TBHLYMPHOCYTES PERCENT AUTO32.820.5 - 60.0 %TBHMONOCYTES PERCENT AUTO9.31.7 - 12.0 %TBHTBH EO %3.60.9 - 7.0 %TBHBASOPHILS PERCENT AUTO0.60.2 - 2.0 %TBH IMMATURE GRANULOCYTES PCT AUTO0.20.0 - 0.5 %TBHNEUTROPHILS ABSOLUTE AUTO2.71.4 - 6.5 10 3/uLTBHLYMPHOCYTES ABSOLUTE AUTO1.71.2 - 3.8 10 3/uLTBHMONOCYTES ABSOLUTE AUTO0.50.3 - 0.8 10 3/uLTBHTBH EO #0.20.0 - 0.7 10 3/uLTBHBASOPHILS ABSOLUTE AUTO0.00.0 - 0.1 10 3/uLTBHIMMATURE GRANULOCYTES ABS AUTO0.010.00 - 0.03 10 3/uLTBHSpecimen (Source)Anatomical Location / LateralityCollection Method / VolumeCollection TimeReceived Time07/05/2025 7:05 AM EDT07/05/2025 7:12 AM EDT Narrative [facility] - 07/05/2025 7:42 AM EDT Authorizing ProviderResult TypeResult StatusGeneric External Data Provider CLINISYNCFinal ResultPerforming OrganizationAddressCity/State/ZIP CodePhone Number [facility] * ALL BILIRUBIN,TOTAL (07/05/2025 7:05 AM EDT)ComponentValueRef RangeTest Method Analysis TimePerformed AtPathologist SignatureBILIRUBIN TOTAL0.90.2 - 1.0 mg/dLTBHSpecimen (Source)Anatomical Location / LateralityCollection Method / VolumeCollection TimeReceived Time07/05/2025 7:05 AM EDT07/05/2025 7:12 AM EDT Narrative [facility] - 07/05/2025 10:35 AM EDT Authorizing ProviderResult TypeResult StatusGeneric External Data Provider CLINISYNCFinal ResultPerforming OrganizationAddressty/State/ZIP CodePhone Number [facility] * (ABNORMAL) ALL BASIC METABOLIC PANEL (07/05/2025 7:05 AM EDT)ComponentValueRef RangeTest MethodAnalysis TimePerformed AtPathologist [id number] - 145 mmol/LTBHPOTASSIUM3.63.5 - 5.1 mmol/IJKUHGKIQNUD14236 - 107 mmol/LTBH CAR[place] MMKTOQD68.121.0 - 32.0 mmol/LTBHANION GAP10.9SNJDCNPRSN789(H)74 - 106 mg/dLTBHBLOOD UREA VTYPXESE87.0(H)7.0 - 18.0 mg/dLTBHCREATININE1.120.70 - 1.30 mg/dLTBHTBH EGFR-AF ARMENIAN>60>=60 mL/min/1.73m 2TBHTBH EGFR-NON AF ARMENIAN >60>=60 mL/min/1.73m 2TBHBUN CREATININE RATIO18.7AZABHKVGXP8.58.5 - 10.1 mg/dL TBHSpecimen (Source)Anatomical Location / LateralityCollection Method / Volume Collection TimeReceived Time07/05/2025 7:05 AM EDT07/05/2025 7:12 AM EDT Narrative [facility] - 07/05/2025 10:35 AM EDT Authorizing ProviderResult TypeResult StatusGeneric External Data Provider CLINISYNCFinal ResultPerforming OrganizationAddressCity/State/ZIP CodePhone Number [facility] * ALL ALBUMIN (07/05/2025 7:05 AM EDT)ComponentValueRef RangeTest MethodAnalysis TimePerformed AtPathologist SignatureALBUMIN LEVEL4.03.4 - 5.0 g/dLTBHSpecimen (Source)Anatomical Location / LateralityCollection Method / VolumeCollection TimeReceived Time07/05/2025 7:05 AM EDT07/05/2025 7:12 AM EDT Narrative [facility] - 07/05/2025 10:35 AM EDT Authorizing ProviderResult TypeResult StatusGeneric External Data Provider CLINISYNCFinal ResultPerforming OrganizationAddressCity/State/ZIP CodePhone Number [facility] * Colonoscopy (12/26/2024 1:58 PM EST)Anatomical RegionLateralityModality Endoscopy Narrative Authorizing ProviderResult TypeResult StatusImad Asaad MDENDOSCOPY PROCEDURE ORDERABLESFinal Result from Last 3 Months or Most Recently Relevant to Health Maintenance Insurance Care Teams Team MemberRelationshipSpecialtyStart DateEnd Date Momo Verdugo MD PCP - GeneralFamily Medicine02/11/24 Momo Verdugo MD [address] [facility] [place] [address] PCP - [employer]12/31/24 Mihaela Bruno NP Nurse PractitionerFamily Medicine02/11/24 Kasandra Thomas DO [address] [place] [address] Referring PhysicianNeurology02/17/24
--- OUTSIDE RECORDS SUMMARY | 2025-10-04 06:59 | XMS_ITS | Encounter Summary ---
Author Organization [facility] Address [address] [place] [address] Care Team Providers Care Overnight Stocker Name Role Phone Momo Verdugo MD Primary Care Provider [phone] Mihaela Bruno NP Unavailable [phone] Kasandra Thomas DO Unavailable [phone] Momo Verdugo MD Unavailable Encounter Details DateTypeDepartmentCare Team (Latest Contact Info)Jvzirgsrozu24/27/2024Clinisync Result Encounter [facility] Unsolicited Provider, Generic External Data Social History Tobacco UseTypesPacks/DayYears UsedDateSmoking Tobacco: FormerCigarettesQuit: 2018Smokeless Tobacco: NeverAlcohol UseStandard Drinks/WeekCommentsNot Currently 0 (1 standard drink = 0.6 oz pure alcohol)[id number] Health LiteracyAnswerDate RecordedHow often do you need [...] sexual activity by your part ner or ex-partner?No10/27/2023Social Connection and Isolation PanelAnswerDate RecordedIn a typical week, how many times do you talk on the phone with family, friends, or neighbors?Once a week02/06/2025How often do you get together with friends or relatives?Once a week02/06/2025How often do you attend rastafarian or druze services?Never02/06/2025Do you belong to any clubs or organizations such as rastafarian groups, unions, AREVS or athletic groups, or school groups?No 02/06/2025How often do you attend meetings of the clubs or organizations you belong to?Never02/06/2025re you , , , , never , or living with a partner?Patient yqnuwjcl51/10/2025UDIT-CAnswerDate RecordedQ1: How often do you have a [...] heating?Not hard at all02/06/2025PHQ-2AnswerDate RecordedPatient Health Questionnaire-2 Iotca327[facility] [place] [facility] Occup[facility] - Occupational Stress QuestionnaireAnswerDate [...] engage in exercise at this level?0 min 02/06/2025Hunger Vital SignAnswerDate RecordedWithin the past 12 months, [...] steady place to sleep or slept in [place] (including now)?No10/27/2023Housing Stability Vital SignAnswerDate RecordedIn the last 12 months, was there a time when you were not able to pay the mortgage or rent on time?No02/06/2025In the past 12 months, how many times have you moved where you were living?t any time in the past 12 months, were you homeless or living in a snf (including now)?No02/06/2025Sex and Gender InformationValueDate RecordedSex Assigned at BirthNot on fileLegal YbgTvfg9602/11/2023 7:07 PM EDTGender IdentityNot on fileSexual OrientationNot on filedocumented as of this encounter Functional Status * AUDIT-C ScoreAnswerDate of PfwspezitpUwveot978/10/2025 6:07 PM Jeannette, Generic * Q1: How often do you have a drink containing alcohol?AnswerDate of Assessment MmjiypXgksz32/10/2025 6:07 PM Jeannette, Generic * Q2: How many drinks containing alcohol do you have on a typical day when you are drinking?AnswerDate of AssessmentAuthorPatient does not drink02/06/2025 6:07 PM Jeannette, Generic * Q3: How often do you have six or more drinks on one occasion?AnswerDate of UsxyrwmdpqGisghgJvhyl87/10/2025 6:07 PM Jerry Machado * Over the past 2 weeks, how often have you been bothered by any of the following problems?QuestionAnswerDate of AssessmentAuthorLittle interest or pleasure in doing thingsNot at all05/11/2025 10:09 AM Hafsa Ricks MAFeeling down, depressed, or hopelessNot at all05/11/2025 10:09 AM Hafsa Paredes MAPatient Health Questionnaire-2 Rcjtr177 10:09 AM Hafsa Ricks MA * QuestionAnswerDate of AssessmentAuthorTrouble falling or staying asleep, or sleeping too muchNot at all05/11/2025 10:09 AM Hafsa Ricks MA Feeling tired or having little energyNot at all05/11/2025 10:09 AM Hafsa Paerdes MAPoor appetite or overeatingNot at all05/11/2025 10:09 AM Hafsa Ricks MAFeeling bad about yourself - or that you are a failure or have let yourself or your family downNot at all05/11/2025 10:09 AM Hafsa Ricks MATrouble concentrating on things, such as reading the newspaper or watching televisionNot at all05/11/2025 10:09 AM Hafsa Ricks MAMoving or speaking so slowly that other people could have noticed? Or the opposite - being so fidgety or restless that you have been moving around a lot more than usual.Not at all05/11/2025 10:09 AM Hafsa Rikcs MAThoughts that you would be better off or hurting yourself in some wayNot at all05/11/2025 10:09 AM Hafsa Ricks MAPatient Health Questionnaire-9 Vawek055 10:09 AM Hafsa Ricks MA documented as of this encounter Plan of Treatment DateTypeDepartmentCare Team (Latest Contact Info)Bgilgqfbzkc56/ 9:30 AM EDTOffice Visit [facility] [place] [facility] [address] [place] [address] Tony Hernandez MD [address] [place] [address] documented as of this encounter Procedures Procedure NamePriorityDate/TimeAssociated DiagnosisCommentsMR ABDOMEN W AND WO PNPGTLBB44/27/2024 8:13 AM EDT documented in this encounter Results * MR abdomen w and wo contrast (07/26/2024 8:13 AM EDT)Anatomical Region LateralityModalityAbdomenMagnetic ResonanceSpecimen (Source)Anatomical Location / LateralityCollection Method / VolumeCollection TimeReceived Time 07/26/2024 8:13 AM EDT Narrative 07/26/2024 8:15 AM EDT [facility] ?[address] ? [place] [address] ? Magnetic Resonance Report ? Signed ? Patient: BIB,GEORGE A ?MR#: [id number] ?? : 1970 ?Acct:[id number] ?? Age/Sex: 54 / M ?ADM Date: 07/20/24 ?? Loc: MRI ? Attending Dr: Non-Staff Physician M.DRomaine ? Ordering Physician: Physician,Non-Staff M.D. ?? Date of Service: 07/20/24 ?? Procedure(s): MR abdomen wo/w con ?? Accession Number(s): [id number] ? cc: Mihaela Bruno CUSTODIAN SUPERVISOR; Physician,Non-Staff M.D. ? [facility] ? [address] ? [place] [address] ? Patient Name: ?? GEORGE Feliz BIB ? MRN: [id number] ? date: 1970 ?Sex: M ?? Assigned Patient Location: MRI ?? Current Patient Location: LAB ?? Accession/Order Number: [id number] ?? Exam Date: 07/20/2024 ??08:15 ?Report Date: 07/26/2024 ??08:13 ? At the request of: ?? NON-STAFF ??PHYSICIAN ? Procedure: ??MR abdomen wo/w con ? EXAMINATION: MR abdomen wo/w con ? HISTORY: Liver Lesion ? COMPARISON: 05/21/2023 CT exam ? TECHNIQUE: A comprehensive MRI examination of the abdomen was performed to ?? optimize visualization of suspected pathology. Images were obtained both ?? before ?? and after intravenous administration of Dotarem contrast. ? FINDINGS: ?? LIVER: The liver is stable in size, contour and echotexture. No focal or ?? enhancing mass is identified ?? BILIARY: The gallbladder is absent. No biliary dilation is observed ?? PANCREAS: No lesion, fluid collection, ductal dilatation, or atrophy. ?? SPLEEN: No enlargement or focal lesion. ?? KIDNEYS: The [place] kidneys are severely atrophic. Right lower quadrant ?? transplant kidney is partially visualized ?? ADRENALS: No mass or enlargement. ?? AORTA/VASCULAR: No aneurysm or dissection. ?? RETROPERITONEUM: No mass or adenopathy. ?? BOWEL/MESENTERY: No visible mass, obstruction, or bowel wall thickening. ?? ABDOMINAL WALL: No mass or hernia. ?? BONES: No bony lesion or fracture. ?? LUNG BASES: No visible pleural disease. Lung bases not well assessed with MRI. ?? OTHER: Negative. ? MR/MR abdomen wo/w con ?? IMPRESSION: ? No focal or enhancing liver lesion identified ? Electronically authenticated by: GIAN ??JENNIFER ?? Date: 07/26/2024 ??08:13 ? Dictated By: ?Gian Rodriguez M.D. ? Signed By: ?07/26/24 0815 ? DD/ 0813 ? TD/TT: ? Senior Accountant: Procedure Note Radiology, Radiologist, - 07/26/2024 [place] [address] Magnetic Resonance Report Signed Patient: GEORGE STYLES [facility]#: [id number] : 1970Acct:[id number] Age/Sex: 54 / MADM Date: 07/20/24 Loc: MRI Attending Dr: Non-Staff Physician Pena Ordering Physician: PhysicianAnastasia M.D. Date of Service: 07/20/24 Procedure(s): abdomen wo/w con Accession Number(s): [id number] cc: Mihaela Bruno NP; PhysicianAnastasia M.D. The [address] [address] Patient Name: GEORGE STYLES MRN: [id number] date: 1970 Sex: M Assigned Patient Location: MRI Current Patient Location: LAB Accession/Order Number: [id number] Exam Date: 07/20/2024 08:15 Report Date: 07/26/2024 [...] No enlargement or focal lesion. KIDNEYS: The [place] kidneys are severely atrophic. Right lower quadrant [...] Rodriguez M.D. Signed By:07/26/24814 DD/ 2 TD/TT: Senior Accountant: Authorizing ProviderResult TypeResult StatusGeneric External Data ProviderIMG MRI PROCEDURESFinal Result documented in this encounter Visit Diagnoses Not on filedocumented in this encounter Additional Health Concerns AssessmentNoted TimePHQ-9 Depression Total Score: 10:49 AM EDT documented as of this encounter Care Teams Team MemberRelationshipSpecialtyStart DateEnd Date Momo Verdugo MD PCP - GeneralFamily Medicine02/11/24 Momo Verdugo MD [address] [place] [address] PCP - [employer]12/31/24 Mihaela Bruno NP Nurse PractitionerFamily Medicine02/11/24 Kasandra Thomas DO [address] [place] [address] Referring PhysicianNeurology02/17/24documented as of this encounter
--- OUTSIDE RECORDS SUMMARY | 2025-10-04 06:59 | XMS_ITS | Clinical Summary ---
Author Organization [facility] Address [address] [place] [address] [place] [address] Care Team Providers Care Estimating Engineer Name Role Phone Lexiesylvesterjose e Mihaela RIVAS Primary Care Provider [phone] Allergies Active AllergyReactionsCriticalityNoted DateCommentsShellfish-Derived Products FiubrgbsTxkz66/12/2019 Patient with lip and tongue swelling. Medications MedicationSigDispense QuantityRefillsLast FilledStart DateEnd DateStatus melatonin 3 MG tablet Take 1 tablet by mouth at bedtime as needed for Insomnia.Active aspirin 81 MG Chew Tab chewable tablet Chew 1 tablet daily. Last refill from our office. Medication can be purchased over the counter going forward. 30 tablet 10/12/2020 2:22 PM EST10/08/2020Active faMOTIdine 20 MG tablet Take 1 tablet by mouth 2 times daily.Active polyethylene glycol 17 g Pack packet Take 1 packet by mouth daily as needed.Active ondansetron 4 MG tablet Take 1 tablet by mouth every 8 hours as needed for Nausea / Vomiting.Active Gabapentin 400 MG capsule Take 1 capsule by mouth at bedtime.3Active Allopurinol 100 MG tablet Indications:Abnormal blood chemistryTake 2 tablets by mouth daily. 180 tablet 5Active Mycophenolate sodium (MYFORTIC) [address] tablet DR Take 1 tablet by mouth every 12 hours. 60 tablet 11:11 AM EDT5Active Tamsulosin HCl 0.4 MG capsule Take 1 capsule by mouth 2 times daily./5Active Atorvastatin 20 MG tablet Take 1 tablet by mouth at bedtime.Active amLODIPine 10 MG tablet Take 1 tablet by mouth daily every morning.Active Ergocalciferol 1.25 MG (91129 UT) capsule Take 1 capsule by mouth once a week.Active alendronate 70 MG tablet Take 1 tablet by mouth every 7 days.Active tadalafil 10 MG tablet Take 1 tablet by mouth as needed for Erectile Dysfunction.Active ursodiol 300 MG capsule Take 2 capsules by mouth every 12 hours. 120 capsule 5Active Torsemide 20 MG tablet TAKE 1 TABLET BY MOUTH DAILY 30 tablet 5Active Tacrolimus (PROGRAF) 0.5 MG capsule Take 1 capsule by mouth every morning and take 1 capsule by mouth every evening. 60 capsule 11:11 AM EDT105Active Sulfamethoxazole-trimethoprim 800-160 MG per tablet Take 1 tablet by mouth 3 times weekly for 432 doses. 36 tablet 1110//617744/8Active Torsemide 20 MG tablet TAKE 1 TABLET BY MOUTH DAILY 90 tablet 104/929093/Discontinued Sulfamethoxazole-trimethoprim 800-160 MG per tablet Take 1 tablet by mouth 3 times weekly. 12 tablet 504//043283/Discontinued(Reorder) Tacrolimus (PROGRAF) 0.5 MG capsule Take 1 capsule by mouth every morning and take 1 capsule by mouth every evening. 60 capsule 1:44 PM EDT04//Discontinued(Reorder) Active Problems ProblemNoted DateDiagnosed DateHeart failure, diastolic, acute4Pleural effusion on right01/16/20243383Rrvkidjbyyreua00/12/2023AKI (acute kidney injury) 05/15/2S/P liver nljdxdzjwu93/11/2020Nausea & ekeudbde83/11/2020Chronic liver disease and grcxkattj08/14/2020 Overview (04/12/2020): Added automatically from request for surgery [id number] Liver wzksgfk2404/09/2020Obesity: body mass index of 30.0-34.9004/09/2020Liver transplant lwcgabcbi48/10/2020 Overview (04/08/2020): Added automatically from request for surgery [id number] -donor kidney transplant xufzspojo52/26/2019ESRD (end stage renal disease)07/24/2019 Overview (07/24/2019): Added automatically from request for surgery [id number] Liver transplant obcxtijkz89/25/2019Hepatic yjvictlzdpxfrl94/20/2018Alcoholic pbkvbxacp65/06/2018 Overview (10/05/2018): Added automatically from request for surgery [id number] Pre-transplant evaluation for liver rwlhefimze11/06/2018 Overview (10/05/2018): Added automatically from request for surgery [id number] End stage renal lzgyibn1706/01/2018Essential hypertension, benignCAD (coronary artery disease) Resolved Problems ProblemNoted DateDiagnosed DateResolved GxicVamwo95 Encounters DateTypeDepartmentCare DpvgIfnxfggxdbd39/27/2025Specialty Pharmacy [facility] [address] [address] Braxton Obregon, [facility], PharmD 09/21/2025[facility] Transplant [place] [facility] [address] [place] [address] Anayeli Arana RN 09/20/2025 8:00 AM EDTOffice Visit [facility] Trans[facility] [address] [place] [address] Christiane Ramsey MD High risk medication use (Primary Dx); Therapeutic drug monitoring; Immunosuppressed status; Liver transplant lrkzfkvae23[facility] [place] [facility] [address] [place] [address] Christiane Ramsey MD 08/28/2025Specialty Pharmacy [facility] [address] [address] Comfort Rivera RPH 08/11/2025 10:30 AM EDTOffice Visit [facility] Transplant [place] [facility] [address] [place] [phone] Rebeca Gutierrez APRN-ROB Kidney replaced by transplant (Primary Dx)08/11/2025Telephone [facility] Transplant [place] [facility] [address] [place] [address] Anayeli Arana, RN Orders; Follow-up07/24/2025Specialty Pharmacy [facility] [address] [place] [phone] Meka Munoz, [facility], PharmD 07/12/2025Results Follow-Up [facility] Transplant [place] [facility] [address] [place] [phone] Anayeli Arana, SAMI TACROLIMUS LEVEL(TROUGH),MANUAL ENTERfrom Last 3 Months Family History Medical HistoryRelationNameCommentsDiabetesBrother2 brotherHeart Disease - Other Brother2 brotherHypertensionBrother2 brotherDiabetesFatherHeart Disease - Other FatherHypertensionFatherStrokeFatherDiabetesMaternal AuntHeart Disease - Other Maternal GrandfatherHypertensionMaternal GrandfatherLung CancerMaternal GrandfatherDiabetesMaternal GrandmotherHeart Disease - OtherMaternal Grandmother HypertensionMaternal GrandmotherLung CancerMaternal GrandmotherDiabetesMother Heart Disease - OtherMotherHypertensionMotherStrokeMotherBreast CancerPaternal AuntHypertensionPaternal AuntHeart Disease - OtherPaternal GrandmotherHeart Disease - OtherSisterRelationNameStatusCommentsBrother2 brotherAliveFather DeceasedMaternal AuntMaternal GrandfatherDeceasedMaternal GrandmotherDeceased MotherDeceasedPaternal AuntAlivePaternal GrandfatherDeceasedPaternal Grandmother DeceasedSisterAlive Social History Tobacco UseTypesPacks/DayYears UsedDateSmoking Tobacco: DabivqLmnwiiqqus275.8 07/19/1988 - 05/14/2018Smokeless Tobacco: FormerChewQuit: 07/19/1994 Tobacco Cessation:Counseling Given: Not Answered Alcohol UseStandard Drinks/WeekCommentsNot Currently2 (1 standard drink = 0.6 oz pure alcohol)stopped 05/14/2018Sex and Gender InformationValueDate RecordedSex Assigned at BirthNot on fileLegal MxuIdoj3807/05/2018 9:29 AM EDTGender Identity Male07/07/2018 3:49 PM EDTSexual XiicxnozdadCmyyowci53/17/2022 3:40 PM EST Last Filed Vital Signs Vital SignReadingTime TakenCommentsBlood Qkeutdrt200/7809/20/2025 7:56 AM EDT Kcscg676409/20/2025 7:56 AM IWRPthhwxnyezz14.7 ??C (98.1 ??F)09/20/2025 7:56 AM EDTRespiratory Piyb731202/26/2024 9:06 AM EDTOxygen Xtzicxwbre74%02/26/2024 9:06 AM EDTInhaled Oxygen Concentration--Xuohxb21.3 kg (207 lb 12.8 oz)09/20/2025 7:56 AM LVYNugsdb647.2 cm (5' 7 )09/20/2025 7:56 AM EDTBody Mass Index32.55 09/20/2025 7:56 AM EDT Plan of Treatment DateTypeDepartmentCare Team (Latest Contact Info)Lnbmdojadcw82/28/2026 8:00 AM EDTOffice Visit [facility] [place] [facility] [address] [place] [address] 09/26/2026 1:00 PM EDTOffice Visit [facility] [place] [facility] [address] [place] [address] Rebeca Gutierrez, ELECTRONICS MECHANIC-PLATFORM MAN [address] [place] [address] Health MaintenanceDue DateLast WhyjXgrdfareTVIWPGU1971PNEUMOCOCCAL VACCINE SERIES (1 of 2 - PCV)1990TDAP (ADULT)1990ZOSTER (SHINGLES) VACCINE (1 of 2)1990COLORECTAL CANCER SCREENING QZLUHJFQPH59, 07/28/2018COVID-19 VACCINE (2 - Moderna risk series)/03/2023, 09/30/2021, 02/21/2021, Additional history existsLIPID FNKAOSVMZ19/23/2024 03/22/2019LUNG CANCER CYMWGBEKR83/12/2022INFLUENZA VACCINE (#1) /01/2024, 11/03/2023, 08/28/2022, Additional history existsPOTASSIUM /, 07/05/2025, 05/02/2025, Additional history existsPROSTATE CANCER SCREENING UYBMITTTMNIehdwmnztcjp37/13/2018HEPATITIS C VIRUS SCREENING Tfeumpqvq64/14/2020, 04/09/2020, 07/24/2019, Additional history existsHIV SCREENING LMIFIXXDWGHpgfahhtn05/04/2023, 04/09/2020, 07/24/2019, Additional history exists Medical Devices ImplantedTypeAreaManufacturerDevice IdentifierShelf Expiration DateModel / Serial / LotStent Inlay Scotts 7 X 20 - [id number] Implanted:Qty: 1 on 04/12/2020 by Renee Rivera MBBS at [facility] Explanted:05/23/2020 (Quantity not on file)N/A: UreterBARD [id number]/24/2020 [id number] / / [id number] Drainage 10.2fr 25cm Percutaneous Meño - [id number] Implanted:Qty: 1 on 05/17/2022 by [facility]: KidneySNOWVILLE [id number] / / [id number]:Implant time-out completed by intra-procedural staff including this RN, kennel technician, and performing physician. The following was completed. RN reads out loud implant type/size/ expiration date, and verbalizes location. Holds package up to tech to visually verify implant details. Tech reads back package details MD verifies verbally correct implant Time-out was completed for each coil during embolization, if applicable. Procedures Procedure NamePriorityDate/TimeAssociated DiagnosisCommentsTACROLIMUS LEVEL(TROUGH),MANUAL RKOELWvqolrz29/15/2025 7:07 AM EDT HDL/LDL, MANUAL GYLTVRprppcp68/15/2025 7:07 AM EDT DBILI & TBILI,AST,ALT,GGT,ALK PHOS,ALB,MANUAL DFDCIEytpdzj34/15/2025 7:07 AM EDT CHOLESTEROL/TRIGLYCERIDE, MANUAL YQZCOKkxtmnd06/15/2025 7:07 AM EDT CHEM 7 PANEL, MANUAL QNSUGWhxquyd00/15/2025 7:07 AM EDT ESTIMATED GFR, , MANUAL TZGQJOtdtkfz24/15/2025 7:07 AM EDT ESTIMATED GFR, NON AMER, MANUAL JQQPSYgexjtx01/15/2025 7:07 AM EDT BILIRUBIN, TOTAL, MANUAL BJLIZMyhjbra84/15/2025 7:07 AM EDT BILIRUBIN DIRECT, MANUAL OHUZGGhwegux14/15/2025 7:07 AM EDT ALP, ALT, AST, MANUAL GEVHNNmvqiub91/15/2025 7:07 AM EDT ALBUMIN, MANUAL WCJIOQxquxfs91/15/2025 7:07 AM EDT CBC, DIFF, PLATELET, MANUAL VQUTLYwwvhdc49/15/2025 7:07 AM EDT CA, MG, PO4, MANUAL BJYNAHmzcxjv60/15/2025 7:07 AM EDT PROTEIN, RANDOM URINE, MANUAL OPIWNHkssndb80/15/2025 6:52 AM EDT CREATININE, RANDOM URINE, MANUAL FXDHNHmqqazb65/15/2025 6:52 AM EDT PROTEIN/CREATININE RATIO, MANUAL NIUOHZgcxqqv97/15/2025 6:52 AM EDT DBILI & TBILI,AST,ALT,GGT,ALK PHOS,ALB,MANUAL ZUUPXXxbloof86/06/2025 7:05 AM EDT CHEM 7 PANEL, MANUAL SJKKZGqbnidx96/06/2025 7:05 AM EDT ESTIMATED GFR, , MANUAL HQCCYXkbwict94/06/2025 7:05 AM EDT ESTIMATED GFR, NON AMER, MANUAL IBUIEKiqrltm91/06/2025 7:05 AM EDT CA, MG, PO4, MANUAL WZQODOlcnoen23/06/2025 7:05 AM EDT CBC, DIFF, PLATELET, MANUAL QLKJJRxnqles91/06/2025 7:05 AM EDT TACROLIMUS LEVEL(TROUGH),MANUAL ZCATJQqdmubx17/05/2025 7:05 AM EDT HIV 1 AND 2 ANTIBODIES/P24 FYDNIKANycssdq76/04/2023 5:[address] CHEST WITHOUT EVBOUFWRMmcenvh22/02/2023 11:25 AM EDT HEPATITIS BATTERY, NHQGCXezfno81/14/2020 3:37 PM EDT OUTSIDE CBCSIGFZJZR40/22/2019 12:00 AM EDTLIPID PANEL W CALCULATED LDLRoutine 03/22/2019 10:30 AM EDT Hyperlipidemia, unspecified hyperlipidemia type PSA, JYIVSPXOESnmswgg76/ 12:57 PM EST Alcoholic cirrhosis, unspecified whether ascites present ESRD (end stage renal disease) on dialysis Pre-transplant evaluation for liver transplant from Last 3 Months or Most Recently Relevant to Health Maintenance Results * ESTIMATED GFR, NON AMER, MANUAL ENTER (09/13/2025 7:07 AM EDT) Only the most recent of2 resultswithin the time period is included. ComponentValueRef RangeTest MethodAnalysis TimePerformed AtPathologist Signature ESTIMATED GFR, NON AMER, MANUAL ENTER>60LAB, OSUSpecimen (Source) Anatomical Location / LateralityCollection Method / VolumeCollection Time Received Time09/13/2025 7:07 AM EDT Narrative Authorizing ProviderResult TypeResult StatusOther OtherLAB SEND OUTSFinal Result Performing OrganizationAddressCity/State/[facility] CodePhone Number [facility] [address] [place] [address] [address] * ESTIMATED GFR, , MANUAL ENTER (09/13/2025 7:07 AM EDT) Only the most recent of2 resultswithin the time period is included. ComponentValueRef RangeTest MethodAnalysis TimePerformed AtPathologist Signature ESTIMATED GFR, , MANUAL ENTER>60LAB, OSUSpecimen (Source) Anatomical Location / LateralityCollection Method / VolumeCollection Time Received Time09/13/2025 7:07 AM EDT Narrative Authorizing ProviderResult TypeResult StatusOther OtherLAB SEND OUTSFinal Result Performing OrganizationAddAllegheny Health Networkty/[facility]/ZIP CodePhone Number [facility] [address] [place] [address] [place] [address] * TACROLIMUS LEVEL(TROUGH),MANUAL ENTER (09/13/2025 7:07 AM EDT) Only the most recent of2 resultswithin the time period is included. ComponentValueRef RangeTest MethodAnalysis TimePerformed AtPathologist Signature TACROLIMUS LEVEL(TROUGH),MANUAL ENTER5.3LAB, OSUSpecimen (Source)Anatomical Location / LateralityCollection Method / VolumeCollection TimeReceived Time 09/13/2025 7:07 AM EDT Narrative Authorizing ProviderResult TypeResult StatusOther OtherLAB SEND OUTSFinal Result Performing OrganizationAddressCity/State/ZIP CodePhone Number [facility], [facility] [address] [place] [address] * CBC, DIFF, PLATELET, MANUAL ENTER (09/13/2025 7:07 AM EDT) Only the most recent of2 resultswithin the time period is included. ComponentValueRef RangeTest MethodAnalysis TimePerformed AtPathologist Signature BANDS (DIFF), MANUAL ENTERLAB, OSUBASOPHIL (DIFF), MANUAL ENTER0.7LAB, [facility] EOSINOPHIL (DIFF), MANUAL ENTER3.5LAB, OSUHEMATOCRIT (HCT), MANUAL ENTER48.0LAB, OSUHemoglobin (HGB), MANUAL ENTER16.3LAB, OSULYMPHOCYTES (DIFF), MANUAL ENTER 27.2LAB, OSUMONOCYTE (DIFF), MANUAL ENTER9.4LAB, OSUNEUTROPHILS (DIFF), MANUAL ENTER59.0LAB, OSUPLATELETS, MANUAL WJDMQ359WBL, OSUWBC, MANUAL ENTER5.4LAB, [facility] Specimen (Source)Anatomical Location / LateralityCollection Method / Volume Collection TimeReceived Time09/13/2025 7:07 AM EDT Narrative Authorizing ProviderResult TypeResult StatusOther OtherLAB SEND OUTSFinal Result Performing OrganizationAddressCity/State/ZIP CodePhone Number [facility], [facility] [address] [place] [phone] * HDL/LDL, MANUAL ENTER (09/13/2025 7:07 AM EDT)ComponentValueRef RangeTest MethodAnalysis TimePerformed AtPathologist SignatureHDL, MANUAL EDLRL25AVK, OSULDL, MANUAL ENTER42.2LAB, OSUSpecimen (Source)Anatomical Location / LateralityCollection Method / VolumeCollection TimeReceived Time09/13/2025 7:07 AM EDT Narrative Authorizing ProviderResult TypeResult StatusOther OtherLAB SEND OUTSFinal Result Performing OrganizationAddressCity/State/ZIP CodePhone Number [facility], [facility] [address] [place] [address] * CHOLESTEROL/TRIGLYCERIDE, MANUAL ENTER (09/13/2025 7:07 AM EDT)ComponentValue Ref RangeTest MethodAnalysis TimePerformed AtPathologist SignatureTOTAL CHOLESTERL, MANUAL YLAQP17UWF, OSUTRIGLYCERIDES, MANUAL SLLOX71EQG, [facility] Specimen (Source)Anatomical Location / LateralityCollection Method / Volume Collection TimeReceived Time09/13/2025 7:07 AM EDT Narrative Authorizing ProviderResult TypeResult StatusOther OtherLAB SEND OUTSFinal Result Performing OrganizationAddressCity/State/ZIP CodePhone Number [facility], [facility] [address] [place] [address] * DBILI & TBILI,AST,ALT,GGT,ALK PHOS,ALB,MANUAL ENTER (09/13/2025 7:07 AM EDT) Only the most recent of2 resultswithin the time period is included. ComponentValueRef RangeTest MethodAnalysis TimePerformed AtPathologist Signature GGT, MANUAL CVOFO28QIB, OSUSpecimen (Source)Anatomical Location / Laterality Collection Method / VolumeCollection TimeReceived Time09/13/2025 7:07 AM EDT Narrative Authorizing ProviderResult TypeResult StatusOther OtherLAB SEND OUTSFinal Result Performing OrganizationAddAllegheny Health Networkty/[facility]/ZIP CodePhone Number [facility], [facility] [address] [place] [address] * CA, MG, PO4, MANUAL ENTER (09/13/2025 7:07 AM EDT) Only the most recent of2 resultswithin the time period is included. ComponentValueRef RangeTest MethodAnalysis TimePerformed AtPathologist Signature CALCIUM (CA), MANUAL ENTER9.2LAB, OSUPhosphate (PO4), Manual Enter2.8LAB, [facility] MAGNESIUM (MG), MANUAL ENTER1.8LAB, OSUSpecimen (Source)Anatomical Location / LateralityCollection Method / VolumeCollection TimeReceived Time09/13/2025 7:07 AM EDT Narrative Authorizing ProviderResult TypeResult StatusOther OtherLAB SEND OUTSEdited Result - FinalPerforming OrganizationAddAllegheny Health Networkty/State/ZIP CodePhone Number [facility], [facility] [address] [place] [address] * BILIRUBIN, TOTAL, MANUAL ENTER (09/13/2025 7:07 AM EDT)ComponentValueRef Range Test MethodAnalysis TimePerformed AtPathologist SignatureBilirubin, Total, MANUAL ENTER1.1LAB, OSUSpecimen (Source)Anatomical Location / Laterality Collection Method / VolumeCollection TimeReceived Time09/13/2025 7:07 AM EDT Narrative Authorizing ProviderResult TypeResult StatusOther OtherLAB SEND OUTSFinal Result Performing OrganizationAddressCity/State/ZIP CodePhone Number [facility], [facility] [address] [place] [address] * BILIRUBIN DIRECT, MANUAL ENTER (09/13/2025 7:07 AM EDT)ComponentValueRef Range Test MethodAnalysis TimePerformed AtPathologist SignatureBilirubin Direct, Manual Enter0.3LAB, OSUSpecimen (Source)Anatomical Location / Laterality Collection Method / VolumeCollection TimeReceived Time09/13/2025 7:07 AM EDT Narrative Authorizing ProviderResult TypeResult StatusOther OtherLAB SEND OUTSFinal Result Performing OrganizationAddressCity/State/ZIP CodePhone Number [facility], [facility] [address] [place] [address] * ALBUMIN, MANUAL ENTER (09/13/2025 7:07 AM EDT)ComponentValueRef RangeTest MethodAnalysis TimePerformed AtPathologist SignatureALBUMIN, MANUAL ENTER4.1 LAB, OSUSpecimen (Source)Anatomical Location / LateralityCollection Method / VolumeCollection TimeReceived Time09/13/2025 7:07 AM EDT Narrative Authorizing ProviderResult TypeResult StatusOther OtherLAB SEND OUTSFinal Result Performing OrganizationAddressCity/State/ZIP CodePhone Number [facility], [facility] [address] [place] [address] * ALP, ALT, AST, MANUAL ENTER (09/13/2025 7:07 AM EDT)ComponentValueRef Range Test MethodAnalysis TimePerformed AtPathologist SignatureALKALINE PHOSPHATASE, MANUAL ZOTBN48ZDL, OSUALT, MANUAL QRMAQ04OYN, OSUAST, MANUAL ZNQJL66ELP, [facility] Specimen (Source)Anatomical Location / LateralityCollection Method / Volume Collection TimeReceived Time09/13/2025 7:07 AM EDT Narrative Authorizing ProviderResult TypeResult StatusOther OtherLAB SEND OUTSFinal Result Performing OrganizationAddressCity/State/ZIP CodePhone Number [facility], [facility] [address] [place] [address] * CHEM 7 PANEL, MANUAL ENTER (09/13/2025 7:07 AM EDT) Only the most recent of2 resultswithin the time period is included. ComponentValueRef RangeTest MethodAnalysis TimePerformed AtPathologist Signature Blood Urea Nitrogen (BUN), MANUAL WQXKY13ABF, OSUChloride (CL), MANUAL UZFJQ194 LAB, OSUCarbon Diox(CO2), MANUAL ENTER25.4LAB, OSUCREATININE, SERUM, MANUAL ENTER1.04LAB, OSUGLUCOSE, MANUAL FWPVB019BFV, OSUPOTASSIUM (K+), MANUAL ENTER3.6 LAB, OSUSODIUM (NA), MANUAL FWPAD723dvws/LLAB, OSUSpecimen (Source)Anatomical Location / LateralityCollection Method / VolumeCollection TimeReceived Time 09/13/2025 7:07 AM EDT Narrative Authorizing ProviderResult TypeResult StatusOther OtherLAB SEND OUTSFinal Result Performing OrganizationAddressCity/State/ZIP CodePhone Number [facility] [address] [place] [address] * PROTEIN/CREATININE RATIO, MANUAL ENTER (09/13/2025 6:52 AM EDT)ComponentValue Ref RangeTest MethodAnalysis TimePerformed AtPathologist Signature PROTEIN/CREATININE RATIO, MANUAL ENTER0.13LAB, OSUSpecimen (Source)Anatomical Location / LateralityCollection Method / VolumeCollection TimeReceived Time 09/13/2025 6:52 AM EDT Narrative Authorizing ProviderResult TypeResult StatusOther OtherLAB SEND OUTSFinal Result Performing OrganizationAddressCity/State/ZIP CodePhone Number [facility], [facility] [address] [place] [address] * CREATININE, RANDOM URINE, MANUAL ENTER (09/13/2025 6:52 AM EDT)ComponentValue Ref RangeTest MethodAnalysis TimePerformed AtPathologist SignatureCreatinine, Random Urine, MANUAL SWQNF462.77LAB, OSUSpecimen (Source)Anatomical Location / LateralityCollection Method / VolumeCollection TimeReceived Time09/13/2025 6:52 AM EDT Narrative Authorizing ProviderResult TypeResult StatusOther OtherLAB SEND OUTSFinal Result Performing OrganizationAddressCity/State/ZIP CodePhone Number [facility], [facility] [address] [place] [address] * PROTEIN, RANDOM URINE, MANUAL ENTER (09/13/2025 6:52 AM EDT)ComponentValueRef RangeTest MethodAnalysis TimePerformed AtPathologist SignatureProtein, Random Urine, MANUAL ENTER16.7LAB, OSUSpecimen (Source)Anatomical Location / LateralityCollection Method / VolumeCollection TimeReceived Time09/13/2025 6:52 AM EDT Narrative Authorizing ProviderResult TypeResult StatusOther OtherLAB SEND OUTSFinal Result Performing OrganizationAddressCity/State/ZIP CodePhone Number LAB, [facility] [address] [address] * HIV 1 AND 2 ANTIBODIES/P24 ANTIGEN (09/02/2023 5:33 AM EDT)ComponentValueRef RangeTest MethodAnalysis TimePerformed AtPathologist SignatureHIV-1/HIV-2 Ab With p24 AntigenNon ReactiveNon Nnrksuju67/04/2023 9:35 AM EDTOKINDRED H[facility]ITAL [facility] CLINICAL LABORATORYSpecimen (Source)Anatomical Location / LateralityCollection Method / VolumeCollection TimeReceived TimeBlood Venipuncture / Zkrtwxu0909/02/2023 5:33 AM EDT1 6:02 AM EDT Narrative Authorizing ProviderResult TypeResult StatusAledaniel Sage MDIMMUNOLOGY ORDERABLESFinal ResultPerforming OrganizationAddressCity/State/ZIP CodePhone Number [facility] [address] [address] * CT CHEST WITHOUT CONTRAST (08/31/2023 11:25 AM EDT)Anatomical RegionLaterality ModalityChestComputed TomographySpecimen (Source)Anatomical Location / LateralityCollection Method / VolumeCollection TimeReceived Time08/31/2023 11:45 AM EDT Impressions 08/31/2023 12:09 PM EDT IMPRESSION: 1. ??Superior segment of the left lower lobe consolidative pneumonia with trace fluid or mild thickening of the adjacent minor fissure. 2. ??Innumerable punctate centrilobular nodules throughout both lungs are likely infectious as well in an immunocompromised patient. 3. ??Few mildly enlarged lymph nodes in the AP window are likely reactive. 4. ??Coronary artery disease. Narrative 08/31/2023 12:09 PM EDT [...] nodules diffusely throughout the lungs. Tracheobronchial tree: ??No abnormality. Mediastinum/Susan: A few mildly enlarged AP [...] window are likelyreactive. 4. Coronary artery disease. Authorizing ProviderResult TypeResult StatusAledaniel Sage MDCT ORDERABLESFinal Result * HEPATITIS BATTERY, ACUTE (04/12/2020 3:37 PM EDT)ComponentValueRef RangeTest MethodAnalysis TimePerformed AtPathologist SignatureHepatitis B Surface Ag VgbcldxbRglvjiin57/14/2020 5:50 PM [facility]ATORYHep B Core Ab,Total (IgG+IgM)DqjxjqgsVnkvtiew73/14/2020 5:50 PM EDT [facility] LABORATORYHep B Core IgM AbNegativeNegative 04/12/2020 5:50 PM [facility] LABORATORYHepatitis A IgM EsXtnycmiuIoahnwvo22/14/2020 5:50 PM [facility] LABORATORYHepatitis C BqehydnxCakszvcdWwkkoxzq23/14/2020 5:50 PM [facility] CL[facility]ICAL LABORATORYSpecimen (Source)Anatomical Location / LateralityCollection Method / VolumeCollection TimeReceived TimeBlood Venipuncture / Fozarai1304/12/2020 3:37 PM EDT04/12/2020 3:48 PM EDT Narrative Authorizing ProviderResult TypeResult StatusRenee MORENOBSIMMUNOLOGY ORDERABLESFinal ResultPerforming OrganizationAddressCity/State/ZIP CodePhone Number [facility] [address] [place] [address] * OUTSIDE COLONOSCOPY (09/20/2019 12:00 AM EDT)Anatomical RegionLaterality ModalityOtherSpecimen (Source)Anatomical Location / LateralityCollection Method / VolumeCollection TimeReceived Time09/20/2019 Narrative Authorizing ProviderResult TypeResult StatusOther OtherGI/BRONCH PROCEDURE ORDERABLESFinal Result * (ABNORMAL) LIPID PANEL W CALCULATED LDL (03/22/2019 10:30 AM EDT)Component ValueRef RangeTest MethodAnalysis TimePerformed AtPathologist Signature TJWAPBQQDKW15<200 mg/dLLAB, EASTComment: ? [<200 mg/dL: Desirable] ?[200-239 mg/dL: ??Borderline High] [>239 mg/dL: High] HDL RMJQFPCOWVB49(L)>40.0 mg/dLLAB, EASTComment: ? [<40 mg/dL: Low (High Risk)] [>59 mg/dL: High (Low Risk)] TRIGLYCERIDES-UQVIK695<150 mg/dLLAB, EASTComment: ? [<150 mg/dL: Desirable] [150-199 mg/dL: Borderline] [200-499 mg/dL: High] [>500 mg/dL: Very High] LDL CHOLESTEROL, KVMMWPITOU517 - 99 mg/dLLAB, EASTComment: [<100 mg/dL: Optimal] ?[100-129 mg/dL: ??Near Optimal] ?[130-159 mg/dL: ??Borderline High] ?[160-189 mg/dL: ??High] [>189 mg/dL: Very High] CHOLESTEROL, TOTAL/HDL2.5<4.5LAB, EASTComment:[<4.5: Low risk]NON-HDL CHOLESTEROL (CHOL-HDL)50<130 mg/dLLAB, EASTSpecimen (Source)Anatomical Location / LateralityCollection Method / VolumeCollection TimeReceived Time03/22/2019 10:30 AM EDT03/22/2019 1:04 PM EDT Narrative Authorizing ProviderResult TypeResult StatusNikasukhjinder Torres MDCHEMISTRY ORDERABLES Final ResultPerforming OrganizationAddressCity/State/ZIP CodePhone Number LAB, [address] [address] * PSA, SCREENING (10/12/2018 12:57 PM EST)ComponentValueRef RangeTest Method Analysis TimePerformed AtPathologist SignaturePSA0.36<4.00 ng/mLLAB, [facility] Specimen (Source)Anatomical Location / LateralityCollection Method / Volume Collection TimeReceived Time10/12/2018 12:57 PM EST10/12/2018 4:12 PM EST Narrative Authorizing ProviderResult TypeResult StatusYovani Orr MDIMMUNOLOGY ORDERABLES Final ResultPerforming OrganizationAddressCity/State/ZIP CodePhone Number LAB, [facility] [address] [place] [address] from Last 3 Months or Most Recently Relevant to Health Maintenance Insurance * Guarantor: George Styles AAccount TypeRelation to PatientDate of BirthPhoneBilling AddressPersonal/JqfrwyKxug1970 [address] [address] Advance Directives For more information, please contact: [phone] (7:30 AM - 6PM [facility], Thursday-Thursday) * Full Code (Latest Code Status on File) Date ActivatedDate InactivatedComments01/20/2024 11:06 AM * Full Code Date ActivatedDate InactivatedComments01/16/2024 1:48 AM01/20/2024 11:06 AM * Full Code Date ActivatedDate InactivatedComments08/28/2023 8:47 PM2 1:48 AM * Full Code Date ActivatedDate InactivatedComments05/15/2022 10:11 PM08/28/2023 8:47 PM * Full Code Date ActivatedDate InactivatedComments05/10/2020 4:17 AM05/15/2022 10:11 PM Care Teams Team MemberRelationshipSpecialtyStart DateEnd Date Mihaela Bruno CNP [facility] - Nnsqfnv07/19/18
--- OUTSIDE RECORDS SUMMARY | 2025-10-04 06:59 | XMS_ITS | Clinical Summary ---
Author Organization [facility] Address [address] [place] [address] Care Team Providers Care Signaler Name Role Phone Mihaela Bruno MD Primary Care Provider [phone] Allergies Active AllergyReactionsCriticalityNoted DateCommentsShellfish DerivedSwelling High02/08/2019 Patient with lip and tongue swelling. Medications MedicationSigDispense QuantityRefillsLast FilledStart DateEnd DateStatus allopurinol (Zyloprim) 100 mg tablet allopurinol 100 mg tablet take 2 tablets by mouth once dailyActive aspirin 81 mg EC tablet in the morning.Active famotidine (Pepcid) 20 mg tablet Take 20 mg by mouth twice a day.Active gabapentin (Neurontin) 400 mg capsule gabapentin 400 mg capsule take 1 capsule by mouth at bedtimeActive melatonin 3 mg tablet Take 3 mg by mouth if needed each day.Active mycophenolate (Myfortic) 180 mg EC tablet Take 360 mg by mouth every 12 (twelve) hours.03/10/2023ctive tacrolimus (Prograf) 0.5 mg capsule Take 0.5 mg by mouth twice a day.03/10/2023ctive tamsulosin (Flomax) 0.4 mg 24 hr capsule Take 0.4 mg by mouth in the morning.06/19/2022ctive torsemide (Demadex) 20 mg tablet Take 20 mg by mouth in the morning.01/22/2024ctive alendronate (Fosamax) 70 mg tablet Take 70 mg by mouth once a week.03/21/2025tive losartan (Cozaar) 50 mg tablet Take 1 tablet by mouth in the morning and at bedtime.Active ondansetron ODT (Zofran-ODT) 4 mg disintegrating tablet Take 4 mg by mouth every 8 (eight) hours if needed.09/08/2024ctive tadalafil (Cialis) 10 mg tablet Take 10 mg by mouth if needed each day.11/22/2024ctive amLODIPine (Norvasc) 10 mg tablet Indications:Primary hypertensionTake 1 tablet (10 mg) by mouth in the morning. 90 tablet /ctive atorvastatin (Lipitor) 20 mg tablet Indications:Coronary artery disease involving [place] coronary artery of [place] heart without angina pectoris,Mixed hyperlipidemiaTake 1 tablet (20 mg) by mouth at bedtime. 90 tablet ctive ergocalciferol (Vitamin D-2) 1.25 MG (89350 Units) capsule Take 50,000 Units by mouth 1 (one) time per week.Expired Active Problems ProblemNoted DateDiagnosed DateElevated blood uric acid level02/24/2025PH with urinary mfntdujyvej65/12/2025Erectile weqbtfpzaga07/12/2025Other osteoporosis without current pathological utfpvanb96/10/2024 Overview (03/22/2025): DEXA 09/06/2024: -2.5 osteoporosis Decreased urine puzoco1208/23/20248288Mjioqcu69/24/2024Other rogljropssma80/24/2024 Vdztrq9502/25/2024Weakness rerdtgsfynq88/21/2024omplication of AV dialysis dzgrjkv8202/11/2024iastolic oawnyzeutzv52/14/6020Olykzdpredbcii90/14/2024Left carotid bruit02/11/2024 Overview (03/22/2025): Carotid US: 08/28/2022: no significant blockage 09/05/2024: less than 50% bilat Portal uqolstqnkwqn42/14/2024Umbilical tbifig7202/11/2024Heart failure, diastolic, acute01/20/2024leural effusion on right01/16/2024ilateral lower extremity edema01/06/20248385Bnjacmjjiwll01/07/1810Ooxgnurh96/07/2024Shortness of breath 01/06/2024eripheral keandpjbad87/04/2024bdominal pain, qfdgejjjvis33/05/2023 Blood glucose nmslnmyy20/05/2023alculus of wqxoqf6811/03/2023omplication of dialysis access kdibtxbcg74/05/2023ysfunction of papillary zfaofv0711/03/2023 Gastroesophageal reflux ueymfcj7511/03/2023eneralized anxiety cpyxnpbw23/05/2023 Immunodeficiency, vutdaednpsh78/05/2023OSA (obstructive sleep apnea)11/03/2023 Overview (03/22/2025): Sleep titration study on 11/17/23 CPAP of 10cm, ramp time 20 with humidification Panic disorder without iekwpetooga76/05/3422Xlfqhd22/05/2023Histoplasmosis 09/10/2023AD (coronary artery disease)04/13/2023Essential hypertension, benign 04/13/2023KI (acute kidney injury)05/15/2022Nausea & lufjtsrv40/11/2020Liver xuvwhyk9304/09/2020Obesity (BMI 30.0-34.9)04/09/2020History of liver transplant 04/08/2020 Overview (04/13/2023): Added automatically from request for surgery [id number] Istfvz0210/07/2019Cardiovascular stress test dmmishfq49/08/2019Chest pain 10/07/2019Chronic renal ragpqcf1410/07/2019History of gastrointestinal hemorrhage 10/07/2019Deceased-donor kidney transplant /26/2019Liver transplant opqictmbp20/25/2019Hepatic febjeyluzeabai06/20/2018Alcoholic xkrkqiyuz97/06/2018 Overview (04/13/2023): Added automatically from request for surgery [id number] Pre-transplant evaluation for liver mcwoftnvbd61/06/2018 Overview (04/13/2023): Added automatically from request for surgery [id number] Increased ammonia level06/22/2018Acute megaloblastic junnvv9706/11/2018Alcoholism 06/11/20182904Shsqhscr85/13/0222Poeddzj07/13/2018Chronic liver disease and cirrhosis 06/11/2018 Overview (04/13/2023): Added automatically from request for surgery [id number] Acute renal failure yaamxyht11/13/2018Metabolic bwwlmlounzkhqf60/13/2018Severe protein-calorie malnutrition (Campos: less than 60% of standard weight)06/11/2018 End-stage renal mqukvei4106/01/2018 Overview (04/13/2023): Added automatically from request for surgery [id number] Family History Medical HistoryRelationNameCommentsCoronary artery diseaseBrotherCoronary artery diseaseFatherCoronary artery diseaseMotherCoronary artery diseaseSisterRelation NameStatusCommentsBrotherAliveFatherDeceasedMotherDeceasedSisterAlive Social History Tobacco UseTypesPacks/DayYears UsedDateSmoking Tobacco: FormerCigarettes Smokeless Tobacco: Never Tobacco Cessation:Counseling Given: Not Answered Alcohol UseStandard Drinks/WeekCommentsNot Currently0 (1 standard drink = 0.6 oz pure alcohol)UT Safety & EnvironmentAnswerDate RecordedFear of Current or Ex-PartnerNot on file01/21/2024Emotionally AbusedNot on file01/21/2024hysically AbusedNot on file01/21/2024Sexually AbusedNot on 01/21/2024hysically or Sexually AbusedNot on 01/21/2024Sex and Gender InformationValueDate Recorded Sex Assigned at BirthNot on fileLegal OerLnnk7405/29/2022 12:06 AM EDTGender IdentityNot on fileSexual OrientationNot on file Last Filed Vital Signs Vital SignReadingTime TakenCommentsBlood Jkghbmpa462/9104 4:26 PM EDT Dfbkm779403/22/2025 4:26 PM EDTTemperature--Respiratory Plxa4431 1:53 PM EDTOxygen Mouffybdtb38%03/22/2025 4:26 PM EDTInhaled Oxygen Concentration-- Nwunwn85.5 kg (204 lb)03/22/2025 4:26 PM FWXKlzvbl923.2 cm (5' 7 )03/22/2025 4:26 PM EDTBody Mass Index31.95003/22/2025 4:26 PM EDT Plan of Treatment Health MaintenanceDue DateLast DoneCommentsCT Ekkhdxtznfgf1971FIT-DNA 1971FIT1971FOBT1971Medicare Annual Wellness (AWV)1970 Knbonmpctecnn1971Depression Qqlewkwjo48/20/1983Hepatitis B Vaccines (1 of 3 - 19+ 3-dose series)1990Pneumococcal Vaccine: Pediatrics (0 to 5 Years) and At-Risk Patients (6 to 64 Years) (1 of 2 - PCV)1990Zoster Vaccines (1 of 2)1990Adult Jwjyksc3402/16/1993COVID-19 Vaccine ( season) /01/2024, 11/03/2023, 11/03/2023, Additional history existsInfluenza Vaccine (#1)/01/2024, 11/01/2024, 11/03/2023, Additional history mqkmhaGfwidmvldly54/27/17757312/26/2024, 09/20/2019Colorectal Cancer Screening 12/26/2034HIB VaccinesAged OutNo longer eligible based on patient's age to complete this topicHPV VaccinesAged OutNo longer eligible based on patient's age to complete this topicIPV VaccinesAged OutNo longer eligible based on patient's age to complete this topicMeningococcal B VaccineAged OutNo longer eligible based on patient's age to complete this topicMeningococcal VaccineAged OutNo longer eligible based on patient's age to complete this topicRotavirus Vaccines Aged OutNo longer eligible based on patient's age to complete this topic Insurance Care Teams Team MemberRelationshipSpecialtyStart DateEnd Date Mihaela Bruno MD [address] [place] [id number] PCP - General01/15/23
--- OUTSIDE RECORDS SUMMARY | 2025-10-04 06:59 | XMS_ITS | Clinical Summary ---
Author Organization [facility] Address [id number] [address] [place] [address] Care Team Providers Care Petrophysicist Name Role Phone Unavailable Primary Care Provider Unavailabl e Social History Tobacco UseTypesPacks/DayYears UsedDateSmoking Tobacco: Never AssessedChildcare AnswerDate GwiqsjhrWyyuvsgzsEombykn39/13/2019EmploymentAnswerDate Recorded KhnbkklaodWmbadfc99/13/2019Purpose - LifeAnswerDate RecordedPurpose and direction in izeyPmwhyum00/11/2021ex and Gender InformationValueDate Recorded Sex Assigned at BirthNot on fileLegal FzcBsgw1505/31/2018 1:10 AM EDTGender IdentityNot on fileSexual OrientationNot on file Plan of Treatment Not on file Medical Devices Not on file Insurance
--- OUTSIDE RECORDS SUMMARY | 2025-10-04 06:59 | XMS_ITS | Encounter Summary ---
Author Organization [facility] Address [address] [place] [address] Care Team Providers Care Amusement Centre Manager Name Role Phone Momo Verdugo MD Primary Care Provider [phone] Momo Verdugo MD Primary Care Provider [phone] Mihaela Bruno NP Unavailable [phone] Kasandra Thomas DO Unavailable [phone] Momo Verdugo MD Unavailable Encounter Details DateTypeDepartmentCare Team (Latest Contact Info)Jkcpbowhcvl76/12/2023Clinisync Result Encounter [facility] External Department Unsolicited Provider, Generic External Data Social History Tobacco UseTypesPacks/DayYears UsedDateSmoking Tobacco: FormerCigarettesQuit: 2018Smokeless Tobacco: NeverAlcohol UseStandard Drinks/WeekCommentsNot Currently 0 (1 standard drink = 0.6 oz pure alcohol)EhwbifL9947 Health LiteracyAnswerDate RecordedHow often do you need [...] relatives?Once a week02/06/2025How often do you attend roman catholic or bahai services?Never02/06/2025Do you belong to any clubs or organizations such as roman catholic groups, unions, fraDealerRater or athletic groups, or school groups?No 02/06/2025How often do you attend meetings of the clubs or organizations you belong to?Never02/06/2025re you , , , , never , or living with a partner?Patient bcpopvzt40/10/2025UDIT-CAnswerDate RecordedQ1: How often do you have a [...] heating?Not hard at all02/06/2025PHQ-2AnswerDate RecordedPatient Health Questionnaire-2 Scbfg117[facility] [place] [facility] - Occupational Stress QuestionnaireAnswerDate [...] steady place to sleep or slept in pinconningelter (including now)?No10/27/2023Housing Stability Vital SignAnswerDate RecordedIn the last 12 months, was there a time when you were not able to pay the mortgage or rent on time?No02/06/2025In the past 12 months, how many times have you moved where you were living?t any time in the past 12 months, were you homeless or living in a mcfp (including now)?No02/06/2025Sex and Gender InformationValueDate RecordedSex Assigned at BirthNot on fileLegal NswMwmm7602/11/2023 7:07 PM EDTGender IdentityNot on fileSexual OrientationNot on fileCOVID-19 ExposureResponseDate RecordedIn the last 10 days, have you been in contact with someone who was confirmed or suspected to have Co ronavirus/COVID-19?No / Yarzrx6710/27/2023 10:42 AM ESTdocumented as of this encounter Functional Status * AUDIT-C ScoreAnswerDate of QomzuxwtbaVuwexw383/10/2025 6:07 PM EDTMychart, Generic * Q1: How often do you have a drink containing alcohol?AnswerDate of Assessment XkbcrkTcrpc82/10/2025 6:07 PM Jerry Machado * Q2: How many drinks containing alcohol do you have on a typical day when you are drinking?AnswerDate of AssessmentAuthorPatient does not drink02/06/2025 6:07 PM Jerry Machado * Q3: How often do you have six or more drinks on one occasion?AnswerDate of CicjfsabqoPtqkviJvjbz26/10/2025 6:07 PM Jerry Machado * Over the past 2 weeks, how often have you been bothered by any of the following problems?QuestionAnswerDate of AssessmentAuthorLittle interest or pleasure in doing thingsNot at all05/11/2025 10:09 AM Hafsa Ricks MAFeeling down, depressed, or hopelessNot at all05/11/2025 10:09 AM Hafsa Paredes MAPatient Health Questionnaire-2 Mubiv071 10:09 AM Hafsa Ricks MA * QuestionAnswerDate [...] downNot at all05/11/2025 10:09 AM Hafsa Ricks MATroubmakayla concentrating on things, such as reading the [...] 10:09 AM Hafsa Ricks MAPatient Health Questionnaire-9 Tomvp629 10:09 AM Hafsa iRcks MA * How difficult have these problems made it for you to do your work, take care of things at home, or get along with other people?AnswerDate of Assessment AuthorNot difficult at 02/11/2024 10:49 AM Hafsa Ricks MA documented as of this encounter Plan of Treatment DateTypeDepartmentCare Team (Latest Contact Info)Kxeddsegejh70/21/2026 9:30 AM EDTOffice Visit [facility] [address] [place] [address] Tony Hernandez MD [address] [place] [address] documented as of this encounter Procedures Procedure NamePriorityDate/TimeAssociated DiagnosisCommentsMR HEAD/BRAIN WO CON 11/10/2023 2:58 PM EST documented in this encounter Results * MR HEAD/BRAIN WO CON (11/10/2023 2:58 PM EST)Anatomical RegionLaterality ModalityOtherSpecimen (Source)Anatomical Location / LateralityCollection Method / VolumeCollection TimeReceived Time11/10/2023 2:58 PM EST Narrative 11/10/2023 3:01 PM EST [facility] ?[address] ? [place] [address] ? Magnetic Resonance Report ? Signed ? Patient: BIB,GEORGE A ?MR#: [id number] ?? : 1970 ?Acct:[id number] ?? Age/Sex: 53 / M ?ADM Date: 11/10/23 ?? Loc: MRI ? Attending Dr: CAESAR TEIXEIRA ? Ordering Physician: CAESAR TEIXEIRA ?? Date of Service: 11/10/23 ?? Procedure(s): MR head/brain wo con ?? Accession Number(s): [id number] ? cc: Mihaela Bruno NP; CAESAR TEIXEIRA ? [facility] ? [address] ? [place] [address] ? Patient Name: ?? GEORGE STYLES ? MRN: [facility]:[id number] ? date: 1970 ?Sex: M ?? Assigned Patient Location: MRI ?? Current Patient Location: MRI ?? Accession/Order Number: [id number] ?? Exam Date: 11/10/2023 ??13:00 ?Report Date: 11/10/2023 ??14:58 ? At the request of: ?? CAESAR ??PUNEET ? Procedure: ??MR head/brain wo con ? EXAM: MR head/brain wo con ? HISTORY: Tremor ? COMPARISON: MRI brain 08/23/2018 ? TECHNIQUE: MRI of the brain was performed without contrast. ? FINDINGS: ? There is no restricted diffusion to suggest acute infarct. There is no midline ? shift, mass effect, or abnormal extraaxial fluid collections. ? Mild enlarged cortical sulci, consistent with age appropriate cerebral ?? atrophy. ? There are nonspecific scattered foci of T2/FLAIR signal abnormality in the ?? subcortical and periventricular white matter, which appear stable since 2018. ?? Statistically, these are most likely based on chronic microvascular ischemia ?? for this age. ? The major intracranial flow voids are visualized. The cerebellar tonsils are ?? normal in position. ? The orbits are unremarkable. The calvarium and extracranial soft tissues are ?? unremarkable. The paranasal sinuses and mastoid air cells are clear. ? MR/MR head/brain wo con ?? IMPRESSION: ? No acute intracranial abnormality. ? Mild chronic microvascular ischemia and involutional changes. ? Electronically authenticated by: ORESTES ??UNLU ?? Date: 11/10/2023 ??14:58 ? Dictated By: ?UNLU,ORESTES ConnerD. ? Signed By: ?11/10/23 1501 ? DD/ 1458 ? TD/TT: ? Coper Hand: Procedure Note Radiology, Radiologist, MD - 11/10/[address] [address] Magnetic Resonance Report Signed Patient: GEORGE STYLES#: [id number] : 1970Acct:[id number] Age/Sex: 53 / MADM Date: 11/10/23 Loc: MRI Attending Dr: CAESAR TEIXEIRA Ordering Physician: CAESAR TEIXEIRA Date of Service: 11/10/23 Procedure(s): MR head/brain wo con Accession Number(s): [id number] cc: Mihaela Bruno NP; CAESAR TEIXEIRA [address] [address] Patient Name: GEORGE STYLES MRN: [id number] date: 1970 Sex: M Assigned Patient Location: MRI Current Patient Location: MRI Accession/Order Number: [id number] Exam Date: 11/10/2023 13:00 Report Date: 11/10/2023 [...] and periventricular white matter, which appear stable wwott2216. Statistically, these are most likely based on [...] Dictated By: ORESTES GARIBAY M.D. Signed By:11/10/23 1503 DD/ 0117 TD/TT: Coper Hand: Authorizing ProviderResult TypeResult StatusGeneric External Data Provider CLINISYNC IMAGINGFinal Result documented in this encounter Visit Diagnoses Not on filedocumented in this encounter Care Teams Team MemberRelationshipSpecialtyStart DateEnd Date Momo Verdugo MD PCP - GeneralFamily Medicine/ Momo Verdugo MD PCP - GeneralFamily Medicine02/11/24 Momo Verdugo MD [address] [place] [address] PCP - [employer]12/31/24 Mihaela Bruno NP Nurse Practitionermily Medicine02/11/24 Kasandra Thomas DO [address] [place] [address] Referring PhysicianNeurology02/17/24documented as of this encounter
--- OUTSIDE RECORDS SUMMARY | 2025-10-04 06:59 | XMS_ITS | Encounter Summary ---
Author Organization [facility] enter Address [address] [place] [address] Care Team Providers Care Juice Bar Team Member Name Role Phone LexiesylvesterMihaela dorantes CNP Primary Care Provider [phone] Encounter Details DateTypeDepartmentCare Team (Latest Contact Info)Anqfrkndrfk13/27/2025Specialty Pharmacy [facility] [address] [address] Braxton Obregon, [facility], PharmD Social History Tobacco UseTypesPacks/DayYears UsedDateSmoking Tobacco: VxnscsLjuxnntckq693.8 07/19/1988 - 05/14/2018Smokeless Tobacco: FormerChewQuit: 07/19/1994Alcohol Use Standard Drinks/WeekCommentsNot Currently2 (1 standard drink = 0.6 oz pure alcohol)stopped 05/14/2018Sex and Gender InformationValueDate RecordedSex Assigned at BirthNot on fileLegal GkcLzvb7307/05/2018 9:29 AM EDTGender Identity Male07/07/2018 3:49 PM EDTSexual PywthdnewioVsnxrbqu83/17/2022 3:40 PM EST documented as of this encounter Functional Status * Are you deaf or do you have serious difficulty hearing?AnswerDate of SmhoznosgbOdrlwjXr40/17/2024 1:01 AM Izzy Gutierrez RN * Are you blind or do you have serious difficulty seeing, even when wearing glasses?AnswerDate of CsbqzwegemCvxvjfQp30/17/2024 1:01 AM Izzy Gutierrez RN * Do you have serious difficulty walking or climbing stairs (5 years or older)? AnswerDate of FkacqvfbqtCsvknaDc01/17/2024 1:01 AM Izzy Gutierrez RN * Do you have difficulty dressing or bathing (5 yrs or older)?AnswerDate of RlydormesfKmvntjOl03/17/2024 1:01 AM Izzy Gutierrez RN * Because of a physical, mental, or emotional condition, do you have difficulty doing errands alone such as visiting a doctor's office or shopping (5 yrs or older)?AnswerDate of EyxqotzocqWbqydyFa66/17/2024 1:01 AM Izzy Gutierrez RN documented as of this encounter Mental Status * Because of a physical, mental, or emotional condition, do you have serious difficulty concentrating, remembering, or making decisions (5 yrs or older)? AnswerEntry HejoYebveaXd42/17/2024 1:01 AM Izzy Gutierrez RN documented in this encounter Progress Notes * Lee Ann Gipson - 09/25/2025 8:38 AM EDT [facility]REACH ADVANCED: Shipping/Pickup: Patient has affirmed needing a refill of the following medications for Shipment (09/26) : Med Name: Tacrolimus 0.5 Med Name: Mycophenolate 360 Contact Info: Specialty Pharmacy [phone] documented in this encounter Plan of Treatment DateTypeDepartmentCare Team (Latest Contact Info)Mklfannnfqj82/28/2026 8:00 AM EDTOffice Visit [facility] [address] [place] [phone] 09/26/2026 1:00 PM EDTOffice Visit [facility] [place] [facility] [address] [place] [phone] Rebeca Gutierrez, ACADEMIC ASSISTANT-COMPUTER SYSTEMS SECURITY ADMINISTRATOR [address] [place] [address] documented as of this encounter Visit Diagnoses Not on filedocumented in this encounter Care Teams Team MemberRelationshipSpecialtyStart DateEnd Date Mihaela Bruno CNP PCP - General07/19/18documented as of this encounter
--- OUTSIDE RECORDS SUMMARY | 2025-10-04 06:59 | XMS_ITS | Encounter Summary ---
Author Organization [facility] Address [address] [place] [address] Care Team Providers Care Electrician Constructor Supervisor Name Role Phone Momo Verdugo MD Primary Care Provider [phone] Mihaela Bruno NP Unavailable [phone] Kasandra Thomas DO Unavailable [phone] Momo Verdugo MD Unavailable Encounter Details DateTypeDepartmentCare Team (Latest Contact Info)Ofxlmiauqvc97/21/2024Clinisync Result Encounter [facility] External Department Unsolicited Provider, Generic External Data Social History Tobacco UseTypesPacks/DayYears UsedDateSmoking Tobacco: FormerCigarettesQuit: 2018Smokeless Tobacco: NeverAlcohol UseStandard Drinks/WeekCommentsNot Currently 0 (1 standard drink = 0.6 oz pure alcohol)PerirwY1507 Health LiteracyAnswerDate RecordedHow often do you need [...] relatives?Once a week02/06/2025How often do you attend baptist or christian services?Never02/06/2025Do you belong to any clubs or organizations such as baptist groups, unions, [email or web address] or athletic groups, or school groups?No 02/06/2025How often do you attend meetings of the clubs or organizations you belong to?Never02/06/2025re you , , , , never , or living with a partner?Patient kxujkqxg37/10/2025UDIT-CAnswerDate RecordedQ1: How often do you have a [...] heating?Not hard at all02/06/2025PHQ-2AnswerDate RecordedPatient Health Questionnaire-2 [id number] [facility] [place] of Occupational Health - Occupational Stress QuestionnaireAnswerDate [...] steady place to sleep or slept in basyeelter (including now)?No10/27/2023Housing Stability Vital SignAnswerDate RecordedIn the [...] InformationValueDate RecordedSex Assigned at BirthNot on fileLegal RzfYzgf6002/11/2023 7:07 PM EDTGender IdentityNot on fileSexual OrientationNot on filedocumented as of this encounter Functional Status * AUDIT-C ScoreAnswerDate of IegjzfxzufLmhldd111/10/2025 6:07 PM Jeannette, Generic * Q1: How often do you have a drink containing alcohol?AnswerDate of Assessment VwahxxJwkdu72/10/2025 6:07 PM Jeannette, Generic * Q2: How many drinks containing alcohol do you have on a typical day when you are drinking?AnswerDate of AssessmentAuthorPatient does not drink02/06/2025 6:07 PM Jeannette, Generic * Q3: How often do you have six or more drinks on one occasion?AnswerDate of NnrrlzjkmkCucnwsWotzi78/10/2025 6:07 PM Jerry Machado * Over the past 2 weeks, how often have you been bothered by any of the following problems?QuestionAnswerDate of AssessmentAuthorLittle interest or pleasure in doing thingsNot at all05/11/2025 10:09 AM Hafsa Ricks MAFeeling down, depressed, or hopelessNot at all05/11/2025 10:09 AM Hafsa Paredes MAPatient Health Questionnaire-2 Ticbh263 10:09 AM Hafsa Ricks MA * QuestionAnswerDate [...] in some wayNot at all05/11/2025 10:09 AM Hasfa Ricks MAPatient Health Questionnaire-9 Fmrub207 10:09 AM Hafsa Ricks MA documented as of this encounter Plan of Treatment DateTypeDepartmentCare Team (Latest Contact Info)Ipxocozecnz21/ 9:30 AM EDTOffice Visit [facility] [place] [facility] [address] [place] [address] Tony Hernandez MD [address] [place] [address] documented as of this encounter Procedures Procedure NamePriorityDate/TimeAssociated DiagnosisCommentsCA ECHO DOPPLER XZEZDFNN83/21/2024 6:07 PM EDT documented in this encounter Results * CA ECHO DOPPLER COMPLETE (05/20/2024 6:07 PM EDT)Anatomical RegionLaterality ModalityOtherSpecimen (Source)Anatomical Location / LateralityCollection Method / VolumeCollection TimeReceived Time05/20/2024 6:07 PM EDT Narrative 05/20/2024 6:07 PM EDT [facility] ?[address] ? [place] [address] ? Cardiology Report ? Signed ? Patient: GEORGE STYLES A ?MR#: [id number] ?? : 1970 ?Acct:[id number] ?? Age/Sex: 54 / M ?ADM Date: 05/18/24 ?? Loc: CARD ? Attending Dr: SHYANN LUBIN ? Ordering Physician: SHYANN LUBIN ?? Date of Service: 05/18/24 ?? Procedure(s): CA echo doppler complete ?? Accession Number(s): [id number] ? cc: Mihaela Bruno DAY CARE WORKER; SHYANN LUBIN ? Patient Name: ? GEORGE STYLES ? MR#: [id number] ? : 1970 ? Exam Date: 05/18/2024 ?? Ordering Doctor: DR SHYANN LUBIN M.D. ? ECHOCARDIOGRAM REPORT ? PROCEDURE: ? CA ECHO DOPPLER COMPLETE ? INDICATIONS: ? Pericardial effusion ? COMPARISON: ? None. ? DESCRIPTION: ? COMPLETE ECHOCARDIOGRAM Real-time transthoracic ?? echocardiography with 2D, M-mode, spectral and color flow Doppler performed. ? QUALITY: ? Technical quality was good. ??67 , 185#, BP 120/64 ?? LEFT VENTRICLE: ? Normal chamber size. Thickened septal wall. ??Normal ?? systolic function. ?? LV EF: ? Normal left ventricular ejection fraction, (55%). ?? DIASTOLIC: ? Normal diastolic function. ?? ATRIAL SEPTUM: ? Visually appears intact. ?? LEFT ATRIUM: ? Normal chamber size. ?? RIGHT ATRIUM: ? Normal chamber size. ?? RIGHT VENTRICLE: ? Mild chamber dilatation. Normal right ventricular ?? systolic function. ? TRICUSPID VALVE: ? Normal mobility and thickness. No stenosis with trivial ?? regurgitation. No evidence of pulmonary hypertension. RVSP 29 mmHg ? MITRAL VALVE: ? Normal mobility and thickness. ?? No evidence of mitral valve ?? stenosis. ??There is no mitral annular calcification. Trivial mitral ?? regurgitation. ? AORTIC VALVE: ? Normal trileaflet appearance. Mildly calcified aortic valve. ?? Normal leaflet mobility. ??No evidence of aortic valve stenosis. Trivial ?? aortic regurgitation. ? AORTIC ROOT: ? Normal diameter and appearance. Ascending aorta is normal in ?? size. ? PULMONIC VALVE: ? Normal thickness and mobility. No stenosis. Trivial ?? regurgitation. ? PERICARDIUM: ? Small mostly posterior pericardial effusion. ? IVC: ? Collapses with inspirations. IVC is normal in size. ? PLEURA: ? CONCLUSION: ? 1. Left ventricle is normal in size and exhibits normal systolic function. ? LVEF is 55%. ?? 2. The right ventricle is mildly dilated and exhibits normal systolic ?? function. ?? 3. No significant valvular dysfunction. ?? 4. Normal right-sided pressures. ?? 5. Small mostly posterior pericardial effusion. ? Adult Echocardiography Procedure Report ?? Left Ventricle ?? LVEDD (3.7 - 5.6 cm): ? 5.52 cm ?? LVESD (2.2 - 4.0 cm): ? 3.96 cm ?? LVIVS thickness (0.6 - 1.2 cm): ? 1.20 cm ?? LVPW thickness (0.5 - 1.0 cm): ? 0.88 cm ?? e': ? 0.11 m/s ?? E - e': ? 7.85 ?? LVOT Max Gradient: ? 3.81 mm[Hg] ?? LVOT Area (cm2): ? 0.98 m/s ?? Peak Velocity (LVOT): ? 0.98 m/s ?? Mean Velocity (LVOT): ? 0.54 m/s ?? LVOT Diameter ? 2.49 cm ?? Left Atrium ?? LA Volume Index (2D A2C): ? 38.44 ml/m2 ?? Left Atrium Systolic Dimension: ? 5.27 cm ?? Mitral Valve ?? MV E to A Ratio: ? 0.92 ?? Mitral Valve A-Wave Peak Velocity: ? 0.91 m/s ?? Mitral Valve E-Wave Peak Velocity: ? 0.83 m/s ?? Right Ventricle ?? Aorta ?? AO Root Diam: ? 3.80 cm ?? Ascending Ao Diam: ? 2.94 cm ?? Aortic Valve ?? AoV Area (Peak Noman): ? 3.94 cm2, 3.94 cm2 ?? AoV Area (VTI): ? 3.61 cm2, 3.61 cm2 ?? Peak Velocity(Antegrade Flow): ? 1.21 m/s ?? Peak Gradient(Antegrade Flow): ? 5.84 mm[Hg] ?? Mean Velocity(Antegrade Flow): ? 0.82 m/s ?? Mean Gradient(Antegrade Flow): ? 3.07 mm[Hg] ?? Velocity Time Integral: ? 28.50 cm ?? Tricuspid Valve ?? Peak Velocity (Regurgitant Flow): ? 2.56 m/s ?? Pulmonic Valve ?? Mean Gradient: ? 2.60 mm[Hg], 2.57 mm[Hg] ?? Mean Velocity: ? 0.75 m/s, 0.74 m/s ?? Peak Gradient: ? 4.78 mm[Hg], 4.78 mm[Hg] ?? Right Atrium ?? Right Atrium Systolic Pressure: ? 48.01 ml, 48.01 ml ? Dictated by: Shyann Lubin M.D. on 05/20/2024 at 18:03 ? Approved by: Shyann Lubin M.D. on 05/20/2024 at 18:07 ? Dictated By: ?SHYANN LUBIN ? Signed By: ?05/20/241806 ? DD/ 1807 ? TD/TT: ? Needle Grinder: Procedure Note Radiology, Radiologist, MD - 05/20/2024 [place] [address] Cardiology Report Signed Patient: GEORGE STYLES [facility]#: [id number] : 1970Acct:[id number] Age/Sex: 54 / MADM Date: 05/18/24 Loc: CARD Attending Dr: SHYANN LUBIN Ordering Physician: SHYANN LUBIN Date of Service: 05/18/24 Procedure(s): CA echo doppler complete Accession Number(s): [id number] cc: Mihaela Bruno DAY CARE WORKER; SHYANN LUBIN Patient Name: GEORGE STYLES MR#: [id number] : 1970 Exam Date: 05/18/2024 Ordering Doctor: [...] SHYANN LUBIN Signed By:05/20/241806 DD/ 06 TD/TT: Needle Grinder: Authorizing ProviderResult TypeResult StatusGeneric External Data Provider CLINISYNC IMAGINGFinal Result documented in this encounter Visit Diagnoses Not on filedocumented in this encounter Additional Health Concerns AssessmentNoted TimePHQ-9 Depression Total Score: 10:49 AM EDT documented as of this encounter Care Teams Team MemberRelationshipSpecialtyStart DateEnd Date Momo Verdugo MD PCP - GeneralFamily Medicine02/11/24 Momo Verdugo MD [address] [place] [address] PCP - [employer]12/31/24 Mihaela Bruno NP Nurse PractitionerFamily Medicine02/11/24 Kasandra Thomas DO [address] [place] [address] Referring PhysicianNeurology02/17/24documented as of this encounter
--- OUTSIDE RECORDS SUMMARY | 2025-10-04 06:59 | XMS_ITS | Encounter Summary ---
Author Organization [facility] enter Address [address] [place] [address] Care Team Providers Care Customs Verifier Name Role Phone Mihaela Bruno CNP Primary Care Provider [phone] Reason for Visit * ReasonCommentsMedication Refill Encounter Details DateTypeDepartmentCare Team (Latest Contact Info)Wzzfqxzvrsl02/23/2025[facility] [address] [place] [address] Anayeli Arana RN Social History Tobacco UseTypesPacks/DayYears UsedDateSmoking Tobacco: XiolyeYmgdltmpzu526.8 07/19/1988 - 05/14/2018Smokeless Tobacco: FormerChewQuit: 07/19/1994Alcohol Use Standard Drinks/WeekCommentsNot Currently2 (1 standard drink = 0.6 oz pure alcohol)stopped 05/14/2018Sex and Gender InformationValueDate RecordedSex Assigned at BirthNot on fileLegal GmdTvfu8507/05/2018 9:29 AM EDTGender Identity Male07/07/2018 3:49 PM EDTSexual GianeyftqxlWflhcryi44/17/2022 3:40 PM EST documented as of this encounter Functional Status * Are you deaf or do you have serious difficulty hearing?AnswerDate of TaojxvsmqdKerhuxYi28/17/2024 1:01 AM Izzy Gutierrez RN * Are you blind or do you have serious difficulty seeing, even when wearing glasses?AnswerDate of QmjtgzpsfcHbihnhWh78/17/2024 1:01 AM Izzy Gutierrez RN * Do you have serious difficulty walking or climbing stairs (5 years or older)? AnswerDate of PtgkfnbkeoFmdjhqNm02/17/2024 1:01 AM Izzy Gutierrez RN * Do you have difficulty dressing or bathing (5 yrs or older)?AnswerDate of ReqorxfpbbWcyatlWu10/17/2024 1:01 AM Izzy Gutierrez RN * Because of a physical, mental, or emotional condition, do you have difficulty doing errands alone such as visiting a doctor's office or shopping (5 yrs or older)?AnswerDate of NyhhgvkxmiXthmuqRj60/17/2024 1:01 AM Izzy Gutierrez RN documented as of this encounter Mental Status * Because of a physical, mental, or emotional condition, do you have serious difficulty concentrating, remembering, or making decisions (5 yrs or older)? AnswerEntry WukjBehzciXm26/17/2024 1:01 AM Izzy Gutierrez RN documented in this encounter Miscellaneous Notes * Telephone Encounter - Anayeli Arana RN - 09/21/2025 2:30 PM EDT REFILL REQUEST Patient Name: Esteban Styles ( ) Date of Liver Transplant: 04/13/2020 (Kidney), 04/13/2020 (Liver) Transplant Physician: Christiane Hilario Separator Operator: Anayeli Arana Primary Care physician: Mihaela Bruno Refill information: Medication requested: Tacrolimus Requested pharmacy: [facility] [address], [address] [facility] [address] [facility]/pharmacy [facility][id number] [place] [address] [address] [facility] [address] [facility] [address] [facility] [address], [address] [facility] [address] [facility] [id number] - [place] [address] - [address] [place] [address] Lab compliance: Today's date: 09/21/25 Most recent labs are from: 08/2025 Lab frequency ordered: Q3 months [facility] Appointment compliance: Last in person Transplant clinic appointment: 09/20/2025 Christiane Ramsey MD Last Transplant telehealth appointment: 01/17/2022 [facility], [facility] Next scheduled clinic appointment: 09/26/25 with Hep 4 Comments / Outcome: - RX refill sent to pharmacy as requested. documented in this encounter Plan of Treatment DateTypeDepartmentCare Team (Latest Contact Info)Dvqubaoljxr32/28/2026 8:00 AM EDTOffice Visit [facility] [place] [facility] [address] [place] [address] 09/26/2026 1:00 PM EDTOffice Visit [facility] Transplant [facility] [address] [place] [address] Rebeca Gutierrez APRN-IT BUSINESS PROCESS ARCHITECT [address] [place] [address] documented as of this encounter Visit Diagnoses Not on filedocumented in this encounter Care Teams Team MemberRelationshipSpecialtyStart DateEnd Date Mihaela Bruno CNP PCP - General07/19/18documented as of this encounter
--- OUTSIDE RECORDS SUMMARY | 2025-10-04 07:02 | XMS_ITS | CCD ---
Author Organization [facility] Care Team Providers [employer] Consultant Name Role Phone Kiana Zuly Unavailable Unavailable [...] Unavailable AICHHOLZ, ZULY Primary Care Unavailable Aichholz [facility], [facility] Primary Care Provider Miguel [facility] Unavailable Shirin [facility],PharmD, Angel Unavailable Unavailab makayla Leigh [facility],PharmD, Te Unavailable Unavai lable Aicholz [facility], Zuly Primary Care Provider [phone] CHANDUC, DR BURCH Admitting Unavailable MISC, DR BURCH Consulting Unavailable AICHHOLZ, MANAGEMENT DEPARTMENT CHAIR ZULY Primary Care Unavailable MISC, DR BURCH Attending Unavailable MISC, DR BURCH Admitting Unavailable MISC, DR BURCH Consulting Unavailable AICHHOLZ, MANAGEMENT DEPARTMENT CHAIR ZULY Primary Care Unavailable MISC, DR BURCH Attending Unavailable ARCELIA PIZARRO Consulting Unavailable KE BURNHAM Attending Unavailable KE BURNHAM Admitting Unavailable BARBARA, DR MÓNICA Munoz Consulting Unavailable AICHHOLZ, MANAGEMENT DEPARTMENT CHAIR ZULY Primary Care Unavailable KE BURNHAM Consulting Unavailable MISC, DR BURCH Consulting Unavailable MISC, DR BURCH Attending Unavailable AICHHOLZ, MANAGEMENT DEPARTMENT CHAIR ZULY Primary Care Unavailable MISC, DR BURCH Admitting Unavailable MISC, DR BURCH Consulting Unavailable MISC, DR DOCTOR Attending Unavailable AICHHOLZ, MANAGEMENT DEPARTMENT CHAIR ZULY Primary Care Unavailable MISC, DR BURCH Admitting Unavailable MISC, DR DOCTOR Consulting Unavailable AICHHOLZ, MANAGEMENT DEPARTMENT CHAIR ZULY Primary Care Unavailable MISC, DOCTOR Admitting Unavailable MISC, DR DOCTOR Attending Unavailable MELINDA, DR GEORGE Munoz Consulting Unavailable MELINDA, DR GEORGE Munoz Attending Unavailable AICHHOLZ, MANAGEMENT DEPARTMENT CHAIR ZULY Primary Care Unavailable MELINDA, DR GEORGE Munoz Admitting Unavailable NAUN ., KE Consulting Unavailable MIRANDA, LYNDSAY Consulting Unavailable MELINDA, DR GEORGE Munoz Consulting Unavailable NAUN ., KE Attending Unavailable NAUN ., KE Admitting Unavailable AICHHOLZ, MANAGEMENT DEPARTMENT CHAIR ZULY Primary Care Unavailable NAUN ., KE Consulting Unavailable GIAN HERRING Consulting Unavailable AICHHOLZ, MANAGEMENT DEPARTMENT CHAIR ZULY Consulting Unavailable AICHHOLZ, MANAGEMENT DEPARTMENT CHAIR ZULY Attending Unavailable AICHHOLZ, MANAGEMENT DEPARTMENT CHAIR ZULY Admitting Unavailable AICHHOLZ, MANAGEMENT DEPARTMENT CHAIR ZULY Primary Care Unavailable MISC, DR DOCTOR Consulting Unavailable MISC, DOCTOR Admitting Unavailable MISC, DR DOCTOR Attending Unavailable AICHHOLZ, MANAGEMENT DEPARTMENT CHAIR ZULY Primary Care Unavailable MISC, DR DOCTOR Consulting Unavailable MISC, DR DOCTOR Attending Unavailable MISC, DR DOCTOR Admitting Unavailable AICHHOLZ, MANAGEMENT DEPARTMENT CHAIR ZULY Primary Care Unavailable MISC, DOCTOR Admitting Unavailable MISC, DR DOCTOR Consulting Unavailable MISC, DR DOCTOR Attending Unavailable AICHHOLZ, MANAGEMENT DEPARTMENT CHAIR ZULY Primary Care Unavailable MISC, DOCTOR Admitting Unavailable MISC, DR DOCTOR Consulting Unavailable AICHHOLZ, MANAGEMENT DEPARTMENT CHAIR ZULY Primary Care Unavailable MISC, DR DOCTOR Attending Unavailable MISC, DOCTOR Admitting Unavailable MISC, DR DOCTOR Consulting Unavailable AICHHOLZ, MANAGEMENT DEPARTMENT CHAIR ZULY Primary Care Unavailable MISC, DR DOCTOR Attending Unavailable AICHHOLZ, MANAGEMENT DEPARTMENT CHAIR ZULY Consulting Unavailable AICHHOLZ, MANAGEMENT DEPARTMENT CHAIR ZULY Attending Unavailable AICHHOLZ, MANAGEMENT DEPARTMENT CHAIR ZULY Admitting Unavailable AICHHOLZ, MANAGEMENT DEPARTMENT CHAIR ZULY Primary Care Unavailable DR MÓNICA JIMENEZ Consulting Unavailable Aichholz [facility], Zuly Primary Care Provider Evna White DO Unavailable [phone] Aicholz [facility], Zuly Primary Care Provider Tran White DOs Tray Unavailable Momo Verdugo MD Primary Care Provider [phone] Aicevi MANAGEMENT DEPARTMENT CHAIR, Zuly Primary Care Provider ZULY BRUNO Primary Care Physician Momo Verdugo MD Primary Care Provider [facility] RX SPECIALIST, Zuly Unavailable Kasandra Thomas DO Unavailable Zuly Bruno Primary Care Provider [phone] Briseida LUZ, Yoselyn Attending Provider Zuly Bruno Primary Care Unavailable Asaad, Imad Attending Unavailable Asaad, Imad Admitting Unavailable Momo Verdugo MD Unavailable MIGUEL CARDONA Attending Unavailable MIGUEL CARDONA Attending Unavailable Aichholz RX SPECIALIST, Zuly Unavailable Kiana RX SPECIALIST-CZuly Primary Care Provider Kiana RX SPECIALIST-C, Zuly Mejias Attending Provider [phone] Momo Verdugo MD Primary Care Provider [facility] RX SPECIALIST, Zuly Unavailable Kasandra Thomas DO Unavailable Momo Verdugo MD Unavailable TONY HERNANDEZ Attending Unavailable AICHHOLZ, ZULY Attending Unavailable ALYXTONY RUBIO F Attending Unavailable AICHHOLZ, ZULY Referring Unavailable AICHHOLZ, ZULY Attending Unavailable AICHHOLZ, ZULY Attending Unavailable ALYXTONY RUBIO F Attending Unavailable SELF, SELF Referring Unavailable REBECA GUTIERREZ Attending Unavailable AICHHOLZ, ZULY Primary Care Unavailable SELF, SELF Referring Unavailable CHRISTIANE PARKER Attending Unavailable KRISTOPHERHHOLZ, ZULY Primary Care Unavailable Momo Verdugo MD Primary Care Provider [phone] Clementina Montesinos Attending Unavailable Orzech, Steph X Attending Unavailable Orzech, Steph X Attending Unavailable Clementina Montesinos Attending Unavailable Orzech, Steph X Attending Unavailable Allergies Allergy ClassificationReported Allergen(s)Allergy TypeDate of OnsetReaction(s) Facility (3 sources)Shellfish; Translations: [SHELLFISH DERIVED]Propensity to adverse reactions (disorder)[id number] Repository (20 sources)Shellfish-Derived ProductsPropensity to adverse reactions to drug 84-57-2017TxgrkscvRZSSelect [facility] (6 sources)Shellfish; Translations: [shellfish]Drug allergy (disorder) Anaphylaxis (disorder)[facility] Repository (8 sources)Shellfish Protein-Containing Drug ProductsDrug [id number] [facility] Medications Current Medications MedicationDrug Class(es)DatesSig (Normalized)Sig (Original)alendronic acid 70 mg oral tablet (14 sources)BisphosphonateStart: 01-34-5133nmyflqsrrex (Fosamax) 70 MG tablet Indications: Other osteoporosis without current pathological fracture Take 1 tablet (70 mg) by mouth every 7 (seven) days TAKE 1 TABLET BY MOUTH EVERY 7 DAYS ON AN EMPTY STOMACH, remain upright for at least 30 MINUTES 12 tablet 1 09/08/2025 ActiveStart: 58-04-6915hgsi 1 tablet by mouth every weekAlendronate 70 mg tablet Active 70 MG PO every week August 10, 2025 12:00am Complies with drugtherapyStart: 03-21-2025 End: 40-15-6408mecztcqqzqu (Fosamax) 70 MG tablet Indications: Other osteoporosis without current pathological fracture Take 1 tablet (70 mg) by mouth every 7 (seven) days 1 tablet weekly on an empty stomach, remain upright for at least 30 minutes 12 tablet 1 03/21/2025 09/05/2025 ActiveamLODIPine 10 mg oral tablet (20 sources)Dihydropyridine Calcium Channel BlockerStart: 73-17-2057wugz 1 tablet by mouth in the morningamLODIPine (Norvasc) 10 MG tablet Take 10 mg by mouth in the morning. 04/03/2025 ActiveStart: 12-13-2022 End: 93-26-2129gvmh 5 mg by mouth every twenty-four hours5 mg, Oral, EVERY 24 HOURS, First dose on Marta 09/03/23 at 2100, Until DiscontinuedStart: 05-16-2022 End: 52-74-4576pqrz 1 tablet by mouth once dailyamLODIPine (Norvasc) 5 MG tablet Indications: Primary hypertension Take 1 tablet (5 mg) by mouth Daily 90 tablet 1 02/08/2025 05/11/2025 Discontinued (Therapy completed)ascorbic acid 100 mg / biotin 0.15 mg / calcium pantothenate 5 mg / folic acid 1 mg / niacin 20 mg / pyridoxine 10 mg / riboflavin 1.7 mg / thiamine mononitrate 1.5 mg / vitamin b 12 0.006 mg oral capsule (6 sources)Nicotinic Acid, Vitamin B12, Vitamin Ctake 1 capsule by mouth once dailyb gopcyti-H-rxnfu acid (NEPHROCAPS) 1 MG capsule Take 1 capsule by mouth daily 0 Activeaspirin 81 mg delayed release oral tablet (20 sources)Platelet Aggregation Inhibitor, Nonsteroidal Anti-inflammatory Drug Start: 13-67-2784fikh 1 tablet by mouth once dailyaspirin 81 mg Oral EC Tab 81 mg = 1 tab(s), Oral, Daily, # 30 tab(s), Refills(s) 0 Start Date: 09/08/24 Status: Ordered Medication Dispense Status: Completed Quantity: 30.0 Unit: tab(s) Total AllowedFills: 1 Fills Dispensed: 0Start: 10-08-2020 End: 75-26-3727rizvblp 81 MG Chew Tab chewable tablet Chew 1 tablet daily. Last refill from our office. Medicationcan be purchased over the counter going forward. 30 tablet 10/12/2020 2:22 PM EST 10/08/2020 ActiveStart: 08-04-2018 End: 47-01-6569bvdc 1 tablet by mouth once dailyAspirin 81 mg Tablet,Delayed Release (Dr/Ec) Discontinued 81 MG PO Daily August 04, 2018 12:00am November 04, 2018 2:24pmatorvastatin 20 mg oral tablet (20 sources)HMG-CoA Reductase InhibitorStart: 96-10-8294urgx 1 tablet by mouth at bedtimeatorvastatin (Lipitor) 20 MG tablet Take 20 mg by mouth at bedtime 03/26/2025 ActiveStart: 05-15-2022 End: 21-17-0102xajb 20 mg by mouth once daily at mg, Oral, DAILY AT BEDTIME, First dose on Marta 05/15/22 at 2215, Until DiscontinuedStart: 09-06-2020 End: 82-50-1609nkva 20 mg by mouth once daily at uxcqbdv21 mg, Oral, DAILY AT BEDTIME, First dose on Thu08/28/23 at 2100, Until Discontinuedcholecalciferol 1000 unt oral tablet (1 source)Vitamin Dtake 1 tablet by mouth once dailyvitamin D (CHOLECALCIFEROL) 1000 UNIT TABS tablet Take 1,000 Units by mouth daily 0 Activeciprofloxacin 500 mg oral tablet (1 source)Quinolone AntimicrobialStart: 06-12-2022 End: 53-03-1705hosd 1 tablet by mouth twice dailyciprofloxacin (Cipro) 500 MG tablet Indications: Kidney replaced by transplant , Liver replaced by transplant , Abnormal blood chemistry Take 1 tablet by mouth 2 times daily for 14 days. 28 tablet 0 06/12/2022 06/26/2022 Activedoxycycline hyclate 100 mg oral capsule (1 source)Tetracycline-class DrugStart: 01-03-2025 End: 13-12-9362zkjl 1 capsule by mouth twice dailydoxycycline hyclate 100 mg Cap 100 mg = 1 cap(s), Oral, BID, may substitute hyclate for monohydratebased on availability, X 4 week(s), # 56 cap(s), Refills(s) 0, Pharmacy: [facility], 170, cm, 01/03/25 11:03:00 EST, Height/Length Dosing, 90, kg, 01/03/25 11:03:00 EST, Weight DosingStart Date: 01/03/25 Stop Date: 01/31/25 Status: OrderedDrug or medicament (substance) (1 source)Start: 96-08-3884ozsgvqjwauutct 1.25 mg oral capsule (14 sources)Provitamin D2 CompoundStart: 46-83-4516metreqssvutehj (Vitamin D2) 1.25 MG (08598 UT) capsule Indications: Vitamin D deficiency Take 1 capsule (1.25 mg) by mouth every 7 (seven) days 12 capsule 1 09/08/2025 ActiveStart: 86-18-0653qxca 1 capsule by mouth every weekErgocalciferol (Vitamin D2) 1,250 mcg (50,000 unit) capsule Active 1250 MCG PO every week 2024 12:00am Complies with drug therapyStart: 03-21-2025 End: 53-06-4517xaug 1 capsule by mouth every weekergocalciferol (Vitamin D-2) 1.25 MG (30057 UT) capsule Indications: Vitamin D deficiency Take 1 capsule (1.25 mg) by mouth 1 (one) time per week 12 capsule 1 03/21/2025 09/05/2025 Activefamotidine 20 mg oral tablet (20 sources)Histamine-2 Receptor AntagonistStart: 02-08-2024 End: 70-68-2079vdqi 1 tablet by mouth in the morningfamotidine (Pepcid) 20 MG tablet Indications: Gastroesophageal reflux disease, unspecified whether e sophagitis present Take 1 tablet (20 mg) by mouth in the morning and 1 tablet (20 mg) before bedtime. 180 tablet 1 05/11/2025 ActiveStart: 01-16-2024 End: 02-27-1668yela 20 mg by mouth twice daily20 mg, Oral, 2 TIMES DAILY, First dose on Thu01/16/24 at 0900, Until DiscontinuedStart: 08-28-2023 End: 49-19-2654yokr 20 mg by mouth twice daily20 mg, Oral, 2 TIMES DAILY, First dose on Thu08/28/23 at 1800, Until DiscontinuedStart: 05-16-2022 End: 36-39-7715eyof 20 mg by mouth once daily20 mg, Oral, DAILY, First dose on Thu05/16/22 at 0900, Until Discontinuedfolic acid 1 mg oral tablet (6 sources)take 1 tablet by mouth once dailyfolic acid (FOLVITE) 1 MG tablet Take 1 mg by mouth daily 0 Activegabapentin 400 mg oral capsule (20 sources)Anti-epileptic AgentStart: 06-07-2023 End: 36-36-9846vihr 1 capsule by mouth at bedtimegabapentin 400 mg Cap take 1 capsule by mouth at bedtime Start Date: 09/08/24 Status: Ordered Medication Dispense Status: Completed Total Allowed Fills: 1 Fills Dispensed: 0Start: 05-15-2022 End: 56-56-8828lxvr 400 mg by mouth once daily at mg, Oral, DAILY AT BEDTIME, First dose on Thu05/15/22 at 2215, Until DiscontinuedStart: 06-12-2020 End: 76-59-4060sdie 4 capsules by mouth once daily at bedtime for paingabapentin 100 MG capsule Take 4 capsules by mouth at bedtime. Take daily at bedtime for foot and ankle pain. 0 06/12/2020 06/12/2023 Discontinuedmelatonin 3 mg oral capsule (20 sources)Start: 23-06-7949yhpl 1 capsule by mouth once daily at bedtime as needed for sleepMelatonin 3 mg capsule Active 3 MG PO Daily at bedtime as needed for sleep December 15, 2024 1:00am Complies with drug therapyStart: 12-15-2024 take 1 capsule by mouth once daily at bedtime as needed for sleepMelatonin 3 mg capsule Active 3 MG PO Daily at bedtime as needed for sleep December 15, 2024 12:00amStart: 66-09-8660jhvizhfit [address] 3 mg under the tongue at bedtime 09/08/2024 ActiveStart: 01-19-2024 End: 56-09-9285qswz 6 mg by mouth once daily at bedtime as needed6 mg, Oral, DAILY AT BEDTIME NEEDED, Starting on Tu01/19/24 at 0016, Until 01/23/24 at 1752,InsomniaStart: 08-28-2023 End: 03-41-8553gnsb 6 mg by mouth once daily at bedtime as needed6 mg, Oral, DAILY AT BEDTIME NEEDED, Starting on Thu08/28/23 at 1738, Until Thu09/11/23 at 1645, InsomniaStart: 05-15-2022 End: 40-12-9125xjsb 3 mg by mouth once daily at bedtime as needed3 mg, Oral, DAILY AT BEDTIME NEEDED, Starting on 01/16/24 at 0141, Until Thu01/19/24 at 0016,InsomniaMultiple Vitamins-Minerals (THERAPEUTIC MULTIVITAMIN-MINERALS) tablet (6 sources)take 1 tablet by mouth once dailyMultiple Vitamins-Minerals (THERAPEUTIC MULTIVITAMIN-MINERALS) tablet Take 1 tablet by mouth daily 0 Active mycophenolic acid 360 mg delayed release oral tablet (20 sources)Antimetabolite ImmunosuppressantStart: 39-06-2184ebjt 1 tablet by mouth every twelve hoursMycophenolate sodium (MYFORTIC) [address] DR Take 1 tablet by mouth every 12 hours. 60 tablet 5 08/29/2025 1:44 PM EDT 04/20/2025 ActiveStart: 84-62-8603gwakjvddddkc acid 360 mg oral enteric coated tablet 720 mg = 2 tab(s), Refills(s) 0 Start Date: 09/08/24 Status: Ordered Medication Dispense Status: Completed Total Allowed Fills: 1 Fills Dispensed: 0 Start: 04-27-2024 End: 40-23-0857mpcy 1 tablet by mouth every twelve hoursMycophenolate sodium (MYFORTIC) [address] tablet DR Take 1 tablet by mouth every 12 hours. 60 ta blet 5 04/27/2024 10/31/2024 Discontinued (Reorder)Start: 01-16-2024 End: 29-34-1939nqri 1 tablet by mouth twice mg, Oral, 2 TIMES DAILY (Solid Organ Transplant), First dose on [facility] 01/16/24 at 0800, Until Discontinued, Give on an empty stomach. Swallow tablet whole; do not crush, split or chew. Contact pharmacy if alternate route or dose is needed.Start: 08-92-5006skfc 1 tablet by mouth every twelve hoursMycophenolate sodium (MYFORTIC) [address] tablet DR Take 1 tablet by mouth every 12 hours. 60 tablet 5 10/05/2023 Active Start: 38-39-7928pank 1 tablet by mouth every twelve hoursmycophenolate (Myfortic) 360 MG EC tablet Take 1 tablet by mouth every 12 (twelve) hours 09/10/2023ctiveStart: 09-03-2023 End: 74-28-6588lepy 360 mg by mouth every twelve hoursStart: 05-15-2022 End: 41-69-4822ugny 1 tablet by mouth every twelve mg, Oral, EVERY 12 HOURS NON-STANDARD, First dose on Marta 05/15/22 at 2245, Until Discontinued Give on an empty stomach. Swallow tablet whole; do not split, crush, or chew.Start: 03-15-2021 End: 00-62-3980fuuooktpdce 4 mg disintegrating oral tablet (20 sources)Serotonin-3 Receptor AntagonistStart: 06-14-2020 End: 87-25-1653bjkhnpktanm (Zofran ODT) 4 MG Tab Dispersible tablet Dissolve 1 tablet on tongue every 6 hours as needed for nausea or vomiting. 20 tablet 0 06/14/2020 06/12/2023 DiscontinuedStart: 04-14-2019 End: 13-72-6843cxag 1 tablet by mouth every eight hours for nauseaondansetron 4 mg Dis Tab Take 1 tablet by mouth every 8 hours if needed for nausea or vomiting for up to 10 days Start Date: 09/08/24 Status: Ordered Medication Dispense Status: Completed Total Allowed Fills: 1 Fills Dispensed: 0take 1 tablet by mouth every eight hours as needed for nausea and vomitingondansetron (Zofran) 4 MG tablet Take 1 tablet by mouth every 8 (eight) hours if needed for nausea or vomiting Activepolyethylene glycol 3350 59452 mg powder for oral solution (20 sources)Osmotic LaxativeStart: 06-89-7083Konyfktawldp Glycol 3350 (Miralax) 17 gram powder in packet Active 17 GM PO Daily as needed for constipation December 15, 2024 1:00am Complies with drug therapyStart: 25-27-7921rfyo 1 g by mouth once dailypolyethylene glycol 3350 17 gram packet gm, Oral, Daily, Refills(s) 0 Start Date: 09/08/24 Status: Ordered Medication Dispense Status: Completed Total Allowed Fills: 1 Fills Dispensed: 0Start: 01-16-2024 End: g, Oral, DAILY NEEDED, Starting on 01/16/24 at 0202, Until 01/23/24 at 1752, Constipation 1st LineStart: 08-28-2023 End: g, Oral, DAILY NEEDED, Starting on 08/28/23 at 1738, Until Thu09/11/23 at 1645, Constipation 1st LineStart: 05-16-2022 End: 46-13-6352yedgneshqwcw glycol (MIRALAX) packet 17 gsertraline 25 mg oral tablet (1 source)Serotonin Reuptake Inhibitortake 1 tablet by mouth once daily sertraline 25 MG tablet Take 25 mg by mouth daily. 0 Activesulfamethoxazole 800 mg / trimethoprim 160 mg oral tablet (20 sources)Dihydrofolate Reductase Inhibitor Antibacterial, Sulfonamide AntimicrobialStart: 09-23-2023 End: 92-76-8868qeez 1 tablet by mouth three times weeklysulfamethoxazole- trimethoprim (Bactrim DS) 800-160 MG per tablet Take 1 tablet by mouth 3 (three) times a week 01/22/2024 ActiveStart: 09-04-2023 End: 43-83-2661kayb 1 tablet by mouth three times weekly, then take 1 tablet by mouth once daily1 tablet, Oral, THREE TIMES WEEKLY (Once per day on Thu), First dose (after last modification) on Thu09/04/23 at 0900, Until DiscontinuedStart: 08-26-2023 End: 79-25-5491hcopvybfdaamemuh-trimethoprim 800 mg-160 mg Tab Refill(s) 0 Start Date: 09/08/24 Status: Ordered Medication Dispense Status: Completed Total Allowed Fills: 1 Fills Dispensed: 0Start: 74-57-3590zzgr 1 tablet by mouth twice dailySulfamethoxazole-trimethoprim 800-160 MG per tablet Take 1 tablet by mouth 2 times daily. 0 08/26/2023 SuspendedStart: 07-07-2022 End: 50-78-3304ntbwyufocdvutlip-trimethoprim (BACTRIM DS) 800-160 MG per tablet 1 tablettacrolimus 0.5 mg oral capsule (20 sources)Calcineurin Inhibitor ImmunosuppressantStart: 75-22-8558dpog 1 capsule by mouth once daily in the morning, then take 1 capsule by mouth once daily in the eveningTacrolimus (PROGRAF) 0.5 MG capsule Take 1 capsule by mouth every morning and take 1 capsule by mouth every evening. 60 capsule 5 08/29/2025 1:44 PM EDT 03/23/2025 ActiveStart: 73-59-3851swag 1 capsule by mouth twice dailyTacrolimus 0.5 mg capsule Active 0.5 MG PO Twice daily December 15, 2024 1:00am Complies with drugtherapyStart: 67-66-9347pupf 1 capsule by mouth once daily in the morningTacrolimus (PROGRAF) 0.5 MG capsule Take 1 capsule by mouth every morning and take1 capsule by mouth every evening. 60 capsule 5 10/03/2024 ActiveStart: 10-03-2024 End: 09-92-6746Xnsqltvewe 0.2 MG Pack Discontinued on 10/03/24 for low Tacrolimus level. Patient started on 0.5mg capsules. 10/03/2024 08/11/2025 Discontinued Start: 09-15-2024 End: 74-76-2817akne 0.5 mg by mouth oncePrograf 0.2 MG pack Indications: Liver Transplant Status Take 0.5 mg by mouth every 12 (twelve) hours 09/15/2024 05/11/2025 Discontinued (Therapy completed)Start: 53-06-7603Obhdpzu 0.2 MG pack 09/15/2024 ActiveStart: 72-09-5412Bqmehhs 0.2 mg oral granule for reconstitution 0.1 mg/kg, Refills(s) 0 Start Date: 09/08/24 Status:OrderedStart: 07-01-2024 End: 25-24-2229Dwpncxxuli 0.2 MG Pack Mix 1 packet as directed and take by mouth daily every Thursday through Thursday(5 days a week). 20 Each 07/01/2024 09/06/2024 Discontinued (Reorder)Start: 06-22-2024 End: 33-12-4630ajdo 1 dose by mouth onceTacrolimus 0.2 MG Pack Mix 1 packet (0.2 mg) as directed and take by mouth every Thursday, Thursday and Thursday. 12 Each 06/22/2024 07/01/2024 Discontinued (Reorder)Start: 03-24-2024 End: 44-47-8255Tjnxouh 0.2 MG pack 03/24/2024 08/23/2024 DiscontinuedStart: 03-04-2024 End: 97-99-9917ipin 1 dose by mouth onceTacrolimus 0.2 MG Pack Mix 1 packet (0.2 mg) as directed and take by mouth every Thursday and Thursday. 8 Each 03/04/2024 06/17/2024 DiscontinuedStart: 02-19-2024 End: 09-53-0727lfbj 0.2 mg by mouth onceTacrolimus 0.2 MG Pack Take 0.2 mg by mouth every Thursday and Thursday. 02/19/2024 03/02/2024 Discontinued (Reorder) Start: 01-16-2024 End: .2 mg, Oral, CUSTOM FREQUENCY (Once per day on Thursday), First dose on Thu01/16/24 at 0900, Until Discontinued, Caution check route of administration. For sublingual administration, place liquid under tongue and allow absorption.Start: 56-44-5396hisr 1 dose by mouth onceTacrolimus 0.2 MG Pack Mix 1 packet (0.2 mg) and take by mouth every Thursday, , Thursday. 10Each 5 01/14/2024 ActiveStart: 09-10-2023 End: 79-79-5046Gbjihyk 0.2 MG packStart: 09-04-2023 End: 80-47-1073wnjw 0.5 mg by mouth once daily0.5 mg, Oral, DAILY, First dose (after last modification) on Thu09/04/23 at 0900, Until Discontinued Do not split, break, crush, or open doses of this medication. Contact pharmacy if altered dose or route needed.Start: 87-34-6700bfvy 0.2 mg by mouth once tacrolimus (Prograf) 0.5 MG capsule Indications: Liver Transplant Status , Renal Transplant Status Take 0.2 mg by mouth every 12 (twelve) hours 5 days a week (Thursday-Thursday) 03/10/2023 ActiveStart: 03-10-2023 End: 05-89-5539numw 0.5 mg by mouth every twelve hours0.5 mg, Oral, EVERY 12 HOURS, First dose on Thu08/28/23 at 2100, Until Discontinued Do not split, br eak, crush, or open doses of this medication. Contact pharmacy if altered dose or route needed.Start: 82-98-0844cung 1 capsule by mouth every twelve hours Tacrolimus (PROGRAF) 0.5 MG capsule Indications: -donor kidney transplant recipient , Livertransplant recipient Take 1 capsule by mouth every 12 hours. 180 capsule 1 08/20/2022 ActiveStart: 05-15-2022 End: 42-64-1241krsv 1 mg by mouth every twelve hours1 mg, Oral, EVERY 12 HOURS, First dose on Thu05/15/22 at 2215, Until Discontinued Do not split, break, crush, or open doses of this medication. Contact pharmacy if altered dose or route needed. Do not split, break, crush, or open doses of this medication. Contact pharmacy if altered dose or route needed.Start: 10-23-4772umcf 1 capsule by mouth every twelve hourstacrolimus (PROGRAF) 0.5 MG capsule Indications: -donor kidney transplant recipient , Livertransplant recipient Take 2 capsules by mouth every 12 hours. 360 capsule 1 03/14/2022 ActiveStart: 14-34-5147okky 1 capsule by mouth twice dailytacrolimus (generic) 0.5 MG capsule Indications: Liver transplant recipient , -donor kidney transplant recipient Take 3 capsules by mouth 2 times daily. 180 capsule 5 01/11/2021 Activetamsulosin hydrochloride 0.4 mg oral capsule (20 sources)alpha-Adrenergic BlockerStart: 10-03-2024 End: 13-92-2788fmafcvvnrs (Flomax) 0.4 MG 24 hr capsule 0.4 mg 11/22/2024 11/17/2025 ActiveStart: 10-03-2024 End: 93-95-1234feuq 1 capsule by mouth once dailyTamsulosin HCl 0.4 MG capsule Take 1 capsule by mouth daily. 90 capsule 1 10/03/2024 08/11/2025 Discontinued Start: 09-08-2024 End: 99-25-5463oppr 1 capsule by mouth twice dailytamsulosin 0.4 mg Cap 0.4 mg = 1 cap(s), Oral, BID, X 90 day(s), # 180 cap(s), Refills(s) 3, Pharmacy: [facility], 170, cm, 09/08/24 14:00:00 EDT, Height/Length Dosing, 90, kg, 09/08/24 14:00:00 EDT, Weight Dosing Start Date: 11/22/24 Stop Date: 11/17/25 Status: Ordered Medication Dispense Status: Completed Quantity: 180.0 Unit: cap(s) Total Allowed Fills: 4 Fills Dispensed: 0Start: 08-10-2024 End: 73-00-1271klus 1 capsule by mouth every twenty-four hours at bedtime tamsulosin (Flomax) 0.4 MG 24 hr capsule Take 0.4 mg by mouth at bedtime 08/10/2024 10/01/2024 Discontinued (Reorder)Start: 05-09-2024 End: 84-59-4444ulut 1 capsule by mouth every twenty-four hours in the morning tamsulosin (Flomax) 0.4 MG 24 hr capsule Indications: Kidney stones Take 1 capsule (0.4 mg) by mouth in the morning. 90 capsule 1 05/09/2024 08/07/2024 ActiveStart: 11-03-2023 End: 88-20-4894vuzf 1 capsule by mouth once dailyTamsulosin HCl 0.4 MG capsule Take 1 capsule by mouth daily. 90 capsule 3 11/03/2023 ActiveStart: 11-03-2023 End: 04-10-8204itug 1 capsule by mouth every twenty-four hours in the morning tamsulosin (Flomax) 0.4 MG 24 hr capsule Indications: Kidney stones Take 1 capsule (0.4 mg) by mouth in the morning. 90 capsule 1 11/03/2023 02/01/2024 ActiveStart: 06-16-2023 End: 58-03-5484vdqn 1 capsule by mouth once dailyTamsulosin HCl 0.4 MG capsule take 1 capsule by mouth once daily 90 capsule 3 06/16/2023 ActiveStart: 27-64-9901ezgv 1 capsule by mouth once dailyTamsulosin HCl 0.4 MG capsule take 1 capsule by mouth once daily 30 capsule 11 06/08/2023 ActiveStart: 06-19-2022 take 1 capsule by mouth once dailyTamsulosin HCl 0.4 MG capsule Take 1 capsule by mouth daily. 30 capsule 11 06/19/2022 ActiveStart: 53-79-7637nrum 1 capsule by mouth once dailyTamsulosin HCl 0.4 MG capsule Take 1 capsule by mouth daily. 30 capsule 0 05/23/2022 ActiveStart: 05-16-2022 End: 93-73-2190vjkz 0.4 mg by mouth once daily0.4 mg, Oral, DAILY, First dose on Thu05/16/22 at 0900, Until Discontinued Slow release product. Do not chew or crushursodiol 300 mg oral capsule (2 sources)Bile AcidStart: 07-12-2025 End: 86-99-5118snob 2 capsules by mouth every twelve hoursursodiol 300 MG capsule Take 2 capsules by mouth every 12 hours. 120 capsule 5 08/11/2025 Active vitamin d 1000 unt oral tablet (5 sources)take 1 tablet by mouth once dailyvitamin D (CHOLECALCIFEROL) 1000 UNIT TABS tablet Take 1,000 Units by mouth daily 0 Active Completed/Discontinued Medications MedicationDrug Class(es)DatesSig (Normalized)Sig (Original)acetaminophen 325 mg oral tablet (10 sources)Start: 01-16-2024 End: 94-77-1150jmjs 1 tablet by mouth every six hours as gnuhfq490 mg, Oral, EVERY 6 HOURS NEEDED, Starting on 01/16/24 at 0202, Until 01/23/24 at 1752, Mild Pain, Moderate Pain, Severe Pain, Oral temp > 101.5 F, 1st line for Pain, Maximum dose of acetaminophen is 4000 mg from all sources in 24 hours. Start: 09-04-2023 End: 25-09-9150wdgd 650 mg by mouth every six hours as wyvosb758 mg, Oral, EVERY 6 HOURS NEEDED, Starting on Thu09/04/23 at 0925, Until Thu09/11/23 at 1645, Moderate Pain, Mild Pain, Oral temp > 100.4 F Maximum dose of acetaminophen is 2000 mg from all sources in 24 hours.Start: 09-03-2023 End: 66-66-2167aien 325 mg by mouth every twenty-four yslro930 mg, Oral, EVERY 24 HOURS, First dose on Marta 09/03/23 at 1600, Until Discontinued Give just prior to each amphotericin b doseStart: 08-31-2023 End: 24-00-4488qhlt 325 mg by mouth every six hours as pzxcom059 mg, Oral, EVERY 6 HOURS NEEDED, Starting on Thu09/04/23 at 0405, Until 09/04/23 at 0926, Moderate Pain, Mild Pain, Oral temp > 100.4 F Maximum dose of acetaminophen is 2000 mg from all sources in 24 hours.Start: 08-29-2023 End: 78-04-8989nxyd 650 mg by mouth every four hours as hheukg439 mg, Oral, EVERY 4 HOURS NEEDED, Starting on 08/29/23 at 2325, Until 08/31/23 at 0732, Oral temp > 100.4 F, Mild Pain Maximum dose of acetaminophen is 4000 mg from all sources in 24 hours.Start: 05-15-2022 End: 42-00-2978nmxy 1 tablet by mouth every six hours as neededacetaminophen (TYLENOL) tablet 650 mgStart: 08-27-2018 End: 49-12-5027frqa 2 tablets by mouth every six hours as needed for fever Acetaminophen 325 mg Tablet Discontinued 650 MG PO Every 6 hours as needed for Fever 0 August 27, 2018 12:00am September 27, 2018 8:04pmallopurinol 100 mg oral tablet (20 sources)Xanthine Oxidase InhibitorStart: 01-16-2024 End: 99-69-8971rwum 200 mg by mouth once krdeq553 mg, Oral, DAILY, First dose on 01/16/24 at 0900, Until DiscontinuedStart: 08-29-2023 End: 17-51-0486cjzp 200 mg by mouth once eplqw063 mg, Oral, DAILY, First dose on 08/29/23 at 0900, Until DiscontinuedStart: 01-15-2023 End: 36-79-8742gffl 2 tablets by mouth once dailyallopurinol 100 mg Tab 100 mg = 1 tab(s), TAKE 2 TABLETS BY MOUTH DAILY Start Date: 09/08/24 Status: Ordered Medication Dispense Status: Completed Total Allowed Fills: 1 Fills Dispensed: 0 Start: 05-17-2022 End: 85-54-5567pssxtivlfqx (ZYLOPRIM) tablet 100 mgStart: 05-16-2022 End: 42-98-0226tyln 200 mg by mouth once mbibl851 mg, Oral, DAILY, First dose on Thu05/16/22 at 0900, Until DiscontinuedStart: 74-59-0430byxc 2 tablets by mouth once dailyallopurinol 100 MG tablet Indications: Abnormal blood chemistry take 2 tablets by mouth once daily 180 tablet 3 12/30/2021 ActiveStart: 01-28-2021 take 2 tablets by mouth once dailyallopurinol 100 MG tablet Indications: Abnormal blood chemistry Take 2 tablets by mouth daily. 180 tablet 3 01/28/2021 Activealuminum hydroxide 40 mg/ml / magnesium hydroxide 40 mg/ml / simethicone 4 mg/ml oral suspension (1 source)Start: 01-16-2024 End: 45-88-7880ikdc 30 mL by mouth every six hours as nrayab37 mL, Oral, EVERY 6 HOURS NEEDED, Starting on 01/16/24 at 0202, Until 01/23/24 at 1752, In digestion, Per 5 mL is equivalent to: (Alum-Mag Hydroxide 200-225 mg and Simethicone 20 mg) and (Alum-Mag Hydroxide 200-200 mg and Simethicone 20 mg)B Complex And C 20-Folic Acid (Nephrocaps) 1 mg Capsule (1 source)Start: 08-27-2018 End: 09-27-2018B Complex And C 20-Folic Acid (Nephrocaps) 1 mg Capsule Discontinued 1 MG PO Every morning 0 August 27, 2018 12:00am September 27, 2018 8:01pmB Complex And C 20-Folic Acid (Nephrocaps) 1 mg capsule (1 source)Start: 09-27-2018 End: 09-27-2018B Complex And C 20-Folic Acid (Nephrocaps) 1 mg capsule Discontinued 1 MG PO Daily before lunch September 27, 2018 8:01pm September 27, 2018 8:02pmB Complex And C 20-Folic Acid (Triphrocaps) 1 mg capsule (1 source)Start: 09-27-2018 End: 27-65-9702vlmd 1 capsule by mouth once daily before breakfastB Complex And C 20-Folic Acid (Triphrocaps) 1 mg capsule Discontinued 1 CAP PO Daily before breakfast September 27, 2018 12:00am December 15, 2024 10:21amB Complex With C 20-Folic Acid (Nephrocaps) 1 mg Capsule (2 sources)Start: 08-27-2018 End: 09-27-2018B Complex With C 20-Folic Acid (Nephrocaps) 1 mg Capsule Discontinued 1 MG PO Every morning 0 August 26, 2018 11:00pm September 27, 2018 7:01pmB Complex With C 20-Folic Acid (Nephrocaps) 1 mg capsule (2 sources)Start: 09-27-2018 End: 09-27-2018B Complex With C 20-Folic Acid (Nephrocaps) 1 mg capsule Discontinued 1 MG PO Daily before lunch September 27, 2018 7:01pm September 27, 2018 7:02pmB Complex With C 20-Folic Acid (Triphrocaps) 1 mg capsule (2 sources)Start: 09-27-2018 End: 26-01-3756nbbf 1 capsule by mouth once daily before breakfastB Complex With C 20-Folic Acid (Triphrocaps) 1 mg capsule Discontinued 1 CAP PO Daily before breakfast September 26, 2018 11:00pm December 15, 2024 9:21ambenzocaine 140 mg/ml / butamben 20 mg/ml / tetracaine 20 mg/ml mucosal spray (1 source)Elizabeth Local Anesthetic, Standardized Chemical AllergenStart: 09-02-2023 End: 64-96-6968Dazrdem, NEEDED, Starting on 09/02/23 at 0807, Until Discontinued, Intra-op/Intra-Procbenzocaine 15 mg / menthol 3.6 mg oral lozenge (1 source)Standardized Chemical AllergenStart: 05-15-2022 End: 83-24-9393tddtitytnk-menthol (CEPACOL) 15-3.6 MG per lozenge 1 lozenge benzonatate 100 mg oral capsule (2 sources)Non-narcotic AntitussiveStart: 08-20-2023 End: 01-93-0428ctvpwlo chloride 0.0014 meq/ml / potassium chloride 0.004 meq/ml / sodium chloride 0.103 meq/ml / sodium lactate 0.028 meq/ml injectable solution (4 sources)Start: 09-05-2023 End: 72-65-8047011 mL, Intravenous, ONCE, 1 dose, On 09/05/23 at 0800 Fluid BolusStart: 05-18-2022 End: 88-28-6389nsmaebor ringers IV solutionStart: 05-15-2022 End: 53-61-8433hdztsccb ringers IV solutioncamphor 5 mg/ml / menthol 5 mg/ml topical lotion (19 sources)Start: 06-06-2020 End: 10-68-8615ybbwosn-menthol 0.5-0.5 % Lotion Apply 1 Application topically as needed. 222 mL 0 06/06/2020 06/12/2023 Discontinuedcefdinir 300 mg oral capsule (3 sources)Cephalosporin AntibacterialStart: 08-27-2018 End: 66-04-3517hlui 1 capsule by mouth once dailyCefdinir 300 mg capsule Discontinued 300 MG PO Daily August 27, 2018 12:00am September 27, 2018 8:07pm give after dialysis on dialysis days.cefTRIAXone 2000 mg injection (2 sources)Cephalosporin AntibacterialStart: 05-15-2022 End: 83-37-0027nlha 2 g intravenously every twenty-four hourscefTRIAXone (ROCEPHIN) 2 g in dextrose 50mL premix IVPBCUSTOM MEDICATION (5 sources)Start: 09-10-2023 End: 94-44-1739UOKMRR MEDICATION Labs to be obtained: 1- Tacrolimus level, trough - collect twice weekly until 09/24/23, then weekly until 10/08/23, them once every two weeks there after. 2- Itraconazole level - obtain once between 09/14-09/18. 3- Chem 6 - Obtain weekly while on itraconazole Fax results to: Dr. White - [phone] [facility] - [phone] Each 09/10/2023 01/19/2024 Discontinued (Medication Reconciliation (suppress cancel msg))Start: 71-75-1992TGEWRU MEDICATION Labs to be obtained: 1- Tacrolimus level, trough - collect twice weekly until 09/24/23, then weekly until 10/08/23, them once every two weeks there after. 2- Itraconazole level - obtain once between 09/14-09/18. 3- Chem 6 - Obtain weekly while on itraconazole Fax results to: Dr. White - [phone] Trans[facility] - [phone] Each 0 09/10/2023 Active Diatrizoate (1 source)Start: 05-20-2022 End: 69-36-5761pxvtlptiyhs Meglumine (Cystografin) 30 % UR solution 80 mL diphenhydrAMINE hydrochloride 25 mg oral tablet (1 source)Histamine-1 Receptor AntagonistStart: 09-03-2023 End: 86-55-3135qfzk 25 mg by mouth every twenty-four hours25 mg, Oral, EVERY 24 HOURS, First dose on Marta 09/03/23 at 1600, Until Discontinued Give 30 minutes p rior to each amphotericin b dosedocusate sodium 100 mg oral capsule (4 sources)Start: 05-15-2022 End: 05-28-0755cwre 200 mg by mouth every twelve fusqs232 mg, Oral, EVERY 12 HOURS, First dose on Marta 05/15/22 at 2215, Until DiscontinuedStart: 05-23-2020 End: 58-61-9907ujug 2 capsules by mouth every twelve hoursdocusate 100 MG capsule Take 2 capsules by mouth every 12 hours. 120 capsule 0 05/23/2020 05/20/2022 Discontinued (Stop Taking at Discharge)0.4 ml enoxaparin sodium 100 mg/ml prefilled syringe (2 sources)Low Molecular Weight HeparinStart: 01-16-2024 End: 23-92-961962 mg, Subcutaneous, EVERY 24 HOURS, 6 doses, First dose (after last reorder) on Thu01/22/24 at 1430, Last dose on Thu01/27/24 at 1430, Indications: DVT/PE prophylaxis2 ml fentaNYL 0.05 mg/ml injection (1 source)Opioid AgonistStart: 09-02-2023 End: 81-51-2583Rphgtkqtbxj, Administer over 2 Minutes, NEEDED, Starting on Thu09/02/23 at 0818, Until Discontinued, Intra-op/Intra-ProcFLUoxetine 40 mg oral capsule (2 sources)Serotonin Reuptake Inhibitor End: 92-74-9286yndl 1 capsule by mouth once dailyFLUoxetine 40 MG capsule Take 40 mg by mouth daily. 0 05/20/2022 Discontinued (Stop Taking at Discharge) furosemide 40 mg oral tablet (6 sources)Loop DiureticStart: 01-20-2024 End: 37-05-3854achi 40 mg by mouth once daily40 mg, Oral, DAILY, First dose on Thu01/20/24 at 0900, Until DiscontinuedStart: 01-19-2024 End: 29-83-037787 mg, Intravenous, 2 TIMES DAILY BEFORE MEALS, 2 doses, First dose (after last reorder) on Thu01/19/24 at 0900, Last dose on Thu01/19/24 at 1600, Administer by slow IV push at a rate not exceeding 40mg/minStart: 01-18-2024 End: 65-32-130295 mg, Intravenous, 2 TIMES DAILY BEFORE MEALS, 2 doses, First dose (after last reorder) on Thu01/18/24 at 1015, Last dose on Thu01/18/24 at 1600, Administer by slow IV push at a rate not exceeding 40mg/minStart: 01-17-2024 End: 30-21-591025 mg, Intravenous, ONCE, 1 dose, On Thu01/17/24 at 1615, Administer by slow IV push at a rate not exceeding 40mg/minStart: 01-16-2024 End: 22-14-683642 mg, Intravenous, ONCE, 1 dose, On Thu01/17/24 at 0945, Administer by slow IV push at a rate not exceeding 40mg/tvu937 ml glucose 50 mg/ml injection (1 source)Start: 09-03-2023 End: 44-34-524145 mL, Intravenous, NEEDED, Starting on Marta 09/03/23 at 1519, Until 09/09/23 at 1457, See admin instructions Use sufficient volume to flush entire line BEFORE and AFTER amphotericin B liposomaladministration. guaiFENesin 20 mg/ml oral solution (3 sources)Start: 01-16-2024 End: 06-72-3738kxlf 400 mg by mouth every six hours as dnhbgi946 mg, Oral, EVERY 6 HOURS NEEDED, Starting on 01/16/24 at 0202, Until 01/23/24 at 1752, Cough, CongestionStart: 08-29-2023 End: 58-94-6908sraw 200 mg by mouth every four hours as arreaj695 mg, Oral, EVERY 4 HOURS NEEDED, Starting on 08/29/23 at 0803, Until Thu09/11/23 at 1645,CoughStart: 05-15-2022 End: 02-91-4734mdwk 400 mg by mouth every six hours as neededguaiFENesin (ROBITUSSIN) oral solution 400 mg1 ml heparin sodium, porcine 5000 unt/ml prefilled syringe (3 sources)Unfractionated Heparin, Anti-coagulantStart: 08-28-2023 End: 73-39-4552rvtjhi 5000 [IU] by subcutaneous injection every eight hours5,000 Units, Subcutaneous, EVERY 8 HOURS (0800/1600/2200), First dose on Thu08/28/23 at 1745, UntilDiscontinuedStart: 05-15-2022 End: 41-45-1408ixdvqkc injection 5,000 Units1 ml HYDROmorphone hydrochloride 1 mg/ml cartridge (1 source)Opioid AgonistStart: 01-22-2024 End: 17-15-0531dckz 0.2 mg intravenously every three hours as needed0.2 mg, Intravenous, EVERY 3 HOURS NEEDED, Starting on 01/22/24 at 1323, Until 01/23/24 [id number], Severe Painiodixanol (VISIPAQUE) injection 320 mg/mL for [facility] IR (1 source)Start: 05-17-2022 End: 29-36-5860xgqqhtxbw (VISIPAQUE) injection 320 mg/mL for IRitraconazole 10 mg/ml oral solution (20 sources)Azole AntifungalStart: 01-16-2024 End: 86-52-3035uiti 100 mg by mouth every twelve dueug507 mg, Oral, EVERY 12 HOURS, First dose on 01/16/24 at 0900, Until Discontinued, Administer on an empty stomach. Hold tube feeds for 1 hour before and 2 hours after administration.Start: 09-10-2023 End: 67-23-2338kasj 10 mL by mouth in the morningitraconazole (Sporanox) 10 MG/ML solution Take 10 mL by mouth in the morning and 10 mL before bedtime. 09/10/2023 11/07/2024 Discontinued (Therapy completed)Start: 09-10-2023 End: 74-83-7428vdor 20 mL by mouth in the morningitraconazole (Sporanox) 10 MG/ML solution Take 20 mL by mouth in the morning and 20 mL before bedtime. 0 09/10/2023 ActiveStart: 09-06-2023 End: 35-12-8865gabh 200 mg by mouth every twelve hoursStart: 09-03-2023 End: 12-29-1765029 mg, Oral, EVERY 8 HOURS, 9 doses, First dose on Marta 09/03/23 at 1700, Last dose on 09/06/23 at 0600 Administer on an empty stomach. Hold tube feeds for 1 hour before and 2 hours after administration.lactulose 667 mg/ml oral solution (20 sources)Osmotic LaxativeStart: 01-18-2020 End: 06-07-8527wgfx 1 mL by mouth four times dailyLactulose 10 gram/15 mL solution Discontinued 60 ML PO Four times daily January 18, 2020 4:59pm J an2024 10:16am Take at 7AM, 3PM, and 11PMStart: 08-04-2018 End: 44-71-7284wvff 60 g by mouth three times dailyLactulose 10 gram/15 mL Solution Discontinued 60 GM PO Three times daily 0 September 29, 2018 2:13pm January 18, 2020 4:59pm Take at 7AM, 3PM, and 11PMtake 20 g by mouth three times dailylactulose (CEPHULAC) 20 g packet Take 20 g by mouth 3 times daily 0 Aochmc83 ml lidocaine hydrochloride 10 mg/ml injection (2 sources)Antiarrhythmic, Amide Local AnestheticStart: 09-02-2023 End: 66-97-3343Eazhurjwgddb, NEEDED, Starting on Thu09/02/23 at 0831, Until Discontinued, Intra-op/Intra-ProcStart: 09-02-2023 End: 77-43-9381Udbmjgx, NEEDED, Starting on Thu09/02/23 at 0828, Until Discontinued, Intra-op/Intra-Proclosartan potassium 50 mg oral tablet (20 sources)Angiotensin 2 Receptor BlockerStart: 02-05-2023 End: 68-62-1383Uhmzc: 94-71-8839lzya 1 tablet by mouth twice dailyLosartan 50 MG tablet take 1 tablet by mouth twice a day 60 tablet 11 01/05/2023 ActiveStart: 01-06-2022 End: 89-34-6494mpnr 1 tablet by mouth twice dailylosartan 50 MG tablet take 1 tablet by mouth twice a day 60 tablet 11 01/06/2022 ActiveStart: 12-24-2020 End: 77-06-5262qhnm 1 tablet by mouth twice dailylosartan 50 MG tablet Take 1 tablet by mouth 2 times daily. 60 tablet 11 12/24/2020 12/19/2021 Active magnesium oxide 400 mg oral tablet (20 sources)Start: 09-30-2023 End: 27-02-0028feox 2 tablets by mouth once dailymagnesium oxide 400 (240 Mg) MG Take 2 tablets by mouth daily. 180 tablet 3 09/30/2023 02/26/2024 Discontinued Start: 09-08-2023 End: 13-80-2426Voahr: 09-05-2023 End: 21-35-7444xona 400 mg by mouth once mg, Oral, DAILY, First dose on 09/05/23 at 0900, Until DiscontinuedStart: 09-04-2023 End: 50-34-3603tilp 1 dose by mouth kdee862 mg, Oral, ONCE, 1 dose, On Thu09/04/23 at 0800Start: 05-20-2022 End: 93-40-1144hlqv 2 tablets by mouth once dailyMagnesium Oxide 500 MG tablet Take 2 tablets by mouth daily. 20 tablet 0 05/20/2022 01/16/2023 Discontinued End: 39-37-8259kygk 2 tablets by mouth in the morningmagnesium oxide (Mag-Ox) 400 MG tablet Take 2 tablets by mouth in the morning. 08/23/2024 Discontinued take 1 tablet by mouth once dailymagnesium oxide (MAG-OX) 400 MG tablet Take 400 mg by mouth daily 0 Istykk54 ml magnesium sulfate 80 mg/ml injection (8 sources)Start: 01-21-2024 End: g, Intravenous, Administer over 4 Hours, ONCE, 1 dose, On Thu01/21/24 at 0815Start: 01-18-2024 End: g, Intravenous, Administer over 4 Hours, ONCE, 1 dose, On Thu01/18/24 at 0730Start: 09-09-2023 End: g, Intravenous, Administer over 4 Hours, ONCE, 1 dose, On Thu09/09/23 at 0800Start: 09-07-2023 End: g, Intravenous, Administer over 4 Hours, ONCE, 1 dose, On Thu09/07/23 at 1145Start: 09-05-2023 End: g, Intravenous, Administer over 4 Hours, ONCE, 1 dose, On Thu09/05/23 at 0800Start: 05-18-2022 End: 52-18-1489Cgorxottq Sulfate 4 g in sterile water 50 ml premix IVPB2 ml midazolam 1 mg/ml injection (2 sources)BenzodiazepineStart: 09-02-2023 End: 39-91-4802Esbgjjbyshu, NEEDED, Starting on Thu09/02/23 at 0818, Until Discontinued, Intra-op/Intra-Procmidodrine hydrochloride 10 mg oral tablet (20 sources)alpha-Adrenergic AgonistStart: 06-09-2018 End: 04-47-3095sizf 1 tablet by mouth three times daily as neededMidodrine 10 mg tablet Discontinued 10 MG PO Three times daily as needed for hypotension August 04, 2018 12:00am August 27, 2018 11:05amtake 2 tablets by mouth three times daily as neededmidodrine (PROAMATINE) 5 MG tablet Take 10 mg by mouth 3 times daily Prn with dialysis 0 Activetake 2 tablets by mouth once daily as neededmidodrine 5 MG Tab tablet Take 10 mg by mouth daily as needed. Iv durning Dialysis Activemineral oil 0.15 mg/mg / petrolatum 0.83 mg/mg ophthalmic ointment (1 source)Start: 09-04-2023 End: Application, Both Eyes, NEEDED, Starting on Thu09/04/23 at 2006, Until Thu09/11/23 at 1645, Dry Eyes Apply thin ribbon inside lower eyelid Patient may self-administer.1 ml morphine sulfate 4 mg/ml cartridge (2 sources)Opioid AgonistStart: 05-15-2022 End: 27-10-9227Ehzzfuus Sulfate (PF) injection 4 mgmultivitamin w/ minerals tablet (3 sources)Start: 09-06-2020 End: 76-22-7029sdje 1 tablet by mouth once dailymultivitamin w/ minerals tablet Take 1 tablet by mouth daily. Further refills to be provided by PCP's office. 30 tablet 3 09/06/2020 05/20/2022 Discontinued (Stop Taking at Discharge)Start: 09-00-2001cjbq 1 tablet by mouth once dailymultivitamin w/ minerals tablet Take 1 tablet by mouth daily. Further refills to be provided by PCP's office. 30 tablet 3 09/06/2020 ActiveMYCOPHENOLATE (1 source)Start: 08-28-2023 End: 23-92-6206bbfd 1 tablet by mouth every twelve oeqbd290 mg, Oral, EVERY 12 HOURS NON-STANDARD, First dose on Thu08/28/23 at 2100, Until Discontinued Give on an empty stomach. Swallow tablet whole; do not crush, split or chew. Contact pharmacy if alternate route or dose is needed.ondansetron 4mg/2ml (ZOFRAN) injection 4 mg (1 source)Start: 05-15-2022 End: 78-62-7267wwco 4 mg intravenously every six hours as neededondansetron 4mg/2ml (ZOFRAN) injection 4 mgOndansetron 4mg/2ml (ZOFRAN) injection 4 mg (1 source)Start: 01-16-2024 End: 67-64-6207yxts 4 mg intravenously every six hours as neededOndansetron 4mg/2ml (ZOFRAN) injection 4 mgoxyCODONE hydrochloride 5 mg oral tablet (20 sources)Opioid AgonistStart: 01-23-2024 End: 62-78-9691jlaa 1 tablet by mouth every six hours as needed for pain oxyCODONE 5 MG tablet Indications: End stage renal disease Take 1 tablet by mouth every 6 hours as needed for Severe Pain for up to 3 days. 12 tablet 01/23/2024 02/26/2024 DiscontinuedStart: 01-22-2024 End: 05-60-7558jxhx 1 tablet by mouth every four hours as needed5 mg, Oral, EVERY 4 HOURS NEEDED, Starting on Thu01/22/24 at 1322, Until 01/23/24 at 1752, Moderate Pain, Severe PainStart: 05-20-2022 End: 15-65-0815qvfCUVEVD 5 MG tablet Indications: Hydronephrosis due to obstruction of ureteral orifice Take 1 tablet by mouth every 4 hours as needed for Severe Pain or Moderate Pain for up to 5 doses. 5 tablet 0 05/20/2022 06/12/2023 DiscontinuedStart: 05-16-2022 End: 59-52-3874hocm 1 tablet by mouth every four hours as neededoxyCODONE HCl (ROXICODONE) tablet 10 mgpantoprazole 40 mg delayed release oral tablet (9 sources)Proton Pump InhibitorStart: 01-18-2020 End: 06-38-0111tzjk 1 tablet by mouth once dailyPantoprazole (Protonix) 40 mg tablet,delayed release (DR/EC) Discontinued 40 MG PO Daily January 18, 2020 1:00am December 15, 2024 10:16amStart: 04-14-2019 End: 32-89-2350fiqt 1 tablet by mouth twice dailyPantoprazole (Protonix) 20 mg Tablet,Delayed Release (Dr/Ec) Discontinued 20 MG PO Twice daily April 14, 2019 12:00am December 15, 2024 10:16amStart: 11-04-2018 End: 30-79-5537snds 1 tablet by mouth once dailyPantoprazole 40 mg tablet,delayed release (DR/EC) Discontinued 40 MG PO Daily 42 42 November 04, 2018 1:00am December 15, 2018 1:00am December 16, 2018 1:01ampotassium bicarbonate 20 meq effervescent oral tablet (1 source)Start: 09-07-2023 End: 03-70-059425 mEq, Per NG tube, ONCE, 1 dose, On 09/07/23 at 1145 Do not swallow whole. Dissolve completelyin 3-4 ounces of water or cold juice before drinking. If administering via J tube, dilute in sterile water, wait for tablet to stop fizzing, swirl the solution and draw into a syringe suitable for att aching to the tube. After administration, flush tube with 15-30 ml water. microencapsulated potassium chloride 20 meq extended release oral tablet (18 sources)Start: 09-10-2023 End: 07-08-5893Briny: 09-09-2023 End: 17-90-916378 mEq, Oral, DAILY, First dose (after last modification) on Thu09/10/23 at 0900, Until Discontinued Swallow tablets whole; do not crush, chew, or suck on tablet. Tablet may also be broken in half and each half swallowed separately.Start: 09-08-2023 End: 22-35-909582 mEq, Oral, ONCE, 1 dose, On Thu09/09/23 at 1115 Swallow tablets whole; do not crush, chew, or suck on tablet. Tablet may also be broken in half and each half swallowed separately.Start: 09-04-2023 End: 88-56-112038 mEq, Oral, ONCE, 1 dose, On Thu09/04/23 at 1245 Swallow tablets whole; do not crush, chew, or suck on tablet. Tablet may also be broken in half and each half swallowed separately.Start: 05-19-2022 End: 01-77-6984mfzanhjcl chloride (K-DUR) tablet ER 40 mEqStart: 05-18-2022 End: 13-54-8315ztvglpvzf chloride (K-DUR) tablet ER 20 mEqStart: 08-04-2018 End: 58-81-3731bjkw 5 capsules by mouth once dailyPotassium Chloride 8 mEq Capsule, Extended Release Discontinued 40 MEQ PO Daily August 04, 2018 12:00am December 15, 2024 10:16amtake 40 mEq by mouth once dailyPOTASSIUM CHLORIDE PO Take 40 mEq by mouth daily 0 Activepotassium phosphate 155 mg / sodium phosphate, dibasic 852 mg / sodium phosphate, monobasic 130 mg oral tablet (2 sources)Start: 05-19-2022 End: 69-52-8718qhcipf-potassium phosphate (K-PHOS NEUTRAL) tablet 1,000 mgStart: 05-18-2022 End: 01-67-5352ottpbz-potassium phosphate (K-PHOS NEUTRAL) tablet 1,000 mg prochlorperazine 5 mg/ml injectable solution (1 source)PhenothiazineStart: 01-17-2024 End: 97-77-9795jide 10 mg intravenously every six hours as rutcvo18 mg, Intravenous, EVERY 6 HOURS NEEDED, Starting on 01/17/24 at 1538, Until 01/23/24 at 1752, Nausea / Vomiting, Refractory Nausea Vomiting, For IV route: dilute dose with 10mL normal saline and give by slow IV push at a rate of 5mg/min. Maximum of 40mg/day.rifAXIMin 550 mg oral tablet (15 sources)Rifamycin AntibacterialStart: 08-27-2018 End: 79-65-7359tgyk 1 tablet by mouth twice dailyRifaximin (Xifaxan) 550 mg Tablet Discontinued 550 MG PO Twice daily 0 August 27, 2018 12:00amJan2024 10:16amRifAXIMin (XIFAXAN PO) Take by mouth. Activesennosides, mcc 8.6 mg oral tablet (1 source)Start: 05-16-2022 End: 64-55-0101ubfgq (SENOKOT) tablet 8.6 mgsevelamer hydrochloride 800 mg oral tablet (20 sources)Phosphate BinderStart: 08-04-2018 End: 40-45-2152chcp 2 tablets by mouth three times daily at mealtimeSevelamer Hcl 800 mg Tablet Discontinued 1600 MG PO THREE TIMES DAILY WITH MEALS August 04, 2018 12:00am December 15, 2024 10:21amStart: 72-59-8827jess 1 tablet by mouth three times daily at mealtimesevelamer 800 MG Tab tablet Take 800 mg by mouth 3 times daily with meals. 0 07/17/2018 Activetake 2 tablets by mouth three times daily at mealtimesevelamer (RENVELA) 800 MG tablet Take 2 tablets by mouth 3 times daily (with meals) 0 ActiveSod Picosulf-Mag Ox-Citric Ac (3 sources)Start: 12-15-2024 End: 35-88-9117iudb 1 dose by mouth once dailySod Picosulf-Mag Ox-Citric Ac (Clenpiq) 10 mg-3.5 gram- 12 gram/175 mL solution Discontinued 175 MLPO Daily 350 0 December 15, 2024 1:00am December 26, 2024 7:57am Take first dose at 3pm evening before colonoscopy; second dose at 9 pm night before colonoscopyStart: 12-15-2024 End: 76-47-8732oheg 1 dose by mouth once dailySod Picosulf-Mag Ox-Citric Ac (Clenpiq) 10 mg-3.5 gram- 12 gram/175 mL solution Discontinued 175 MLPO Daily 350 0 December 15, 2024 12:00am December 26, 2024 6:57am Take first dose at 3pm evening before colonoscopy; second dose at 9 pm night before colonoscopy Start: 03-34-4586xcqz 1 dose by mouth once dailySod Picosulf-Mag Ox-Citric Ac (Clenpiq) 10 mg-3.5 gram- 12 gram/175 mL solution Active 175 ML PO Daily 350 0 December 15, 2024 12:00am Take first dose at 3pm evening before colonoscopy; second dose at 9 pm night before nhpvvbuigxw9176 ml sodium chloride 9 mg/ml injection (7 sources)Start: 01-16-2024 End: 27-20-4203Yxwtqggsdaf, at 20 mL/hr, NEEDED, Starting on 01/16/24 at 0202, Until 01/23/24 at 1752, Carrier Fluid - See Admin. Inst, 250mL 0.9NS to be used as carrier fluid for intermittent small volumeor piggyback medication administration as needed. Infusion rate of the carrier fluid should be set at 20 mL/hr unless the rate as the intermittent medication is less than 20 mL/hr. For intermittent medications with a rate less than 20 mL/hr set the carrier fluid at that rate of the intermittent or piggy back medication.Start: 09-04-2023 End: mL, Nebulization, NEEDED, Starting on Thu09/04/23 at 0926, Until Thu09/11/23 at 1645, Other, c/f mucus pluggingStart: 09-03-2023 End: 41-02-2365vbms 500 mL intravenously every twenty-four mL, Intravenous, EVERY 24 HOURS, First dose on Marta 09/03/23 at 1930, Until Discontinued Give 500mL bolus after amphotericin B dose. Amphotericin B is incompatible with NS; use PRN D5W order for flushing line immediately following drug administration but prior to NS bolus.Start: 08-31-2023 End: spray, Right Nostril, NEEDED, Starting on 08/31/23 at 2142, Until Thu09/11/23 at 1645, CongestionStart: 08-28-2023 End: 11-34-5615Ocaqcnfrfdw, at 20 mL/hr, NEEDED, Starting on Thu08/28/23 at 1734, Until Thu09/11/23 at 1645, Carrier Fluid - See Admin. Inst 250mL 0.9NS to be used as carrier fluid for intermittent small volumeor piggyback medication administration as needed. Infusion rate of the carrier fluid should be set at 20 mL/hr unless the rate as the intermittent medication is less than 20 mL/hr. For intermittent medications with a rate less than 20 mL/hr set the carrier fluid at that rate of the intermittent or piggy back medication.Start: 05-15-2022 End: 39-00-8229eiylub chloride 0.9% IV solution 250 mLsucralfate 1000 mg oral tablet (3 sources)Aluminum ComplexStart: 01-18-2020 End: 81-63-9827tvel 1 tablet by mouth every six hoursSucralfate (Carafate) 1 gram tablet Discontinued 1 GM PO Q6H 56 14 January 18, 2020 1:00am December 15, 2024 10:21amtadalafil 10 mg oral tablet (20 sources)Phosphodiesterase 5 InhibitorStart: 93-03-5787rpud 1 tablet by mouth every hour, then take 2 tablets by mouth every twenty-four hoursCialis 10 mg Tab 10 mg = 1 tab(s), Oral, As Directed, take 1 tab at least 1 hr prior to intercourse, do not exceed 20 mg (2 tab) in 24 hrs, # 30 tab(s), Refills(s) 5, Pharmacy: [id number], 170, cm, 11/22/24 9:39:00 EST, Height/Length Dosing, 90, kg, 11/22/24 9:39:00 EST, Weight Dosing Start Date: 11/22/24 Status: Ordered Medication Dispense Status: Completed Quantity: 30.0 Unit: tab(s) Total Allowed Fills: 6 Fills Dispensed: 0take 1 tablet by mouth every twenty-four hours as neededtadalafil (Cialis) 10 MG tablet Take 10 mg by mouth Daily as needed for erectile dysfunction Activetorsemide 20 mg oral tablet (20 sources)Loop DiureticStart: 50-86-6220hena 1 tablet by mouth once daily torsemide 20 mg Tab 20 mg = 1 tab(s), TAKE 1 TABLET BY MOUTH ONCE DAILY Start Date: 09/08/24 Status: Ordered Medication Dispense Status: Completed Total Allowed Fills: 1 Fills Dispensed: 0Start: 01-22-2024 End: 07-60-6734dgae 1 tablet by mouth in the morningtorsemide (Demadex) 20 MG tablet Take 20 mg by mouth in the morning. 01/22/2024 ActiveStart: 01-20-2024 End: 49-20-3326drtj 20 mg by mouth twice daily before namcojot93 mg, Oral, 2 TIMES DAILY BEFORE MEALS, First dose on Thu01/20/24 at 1600, Until Discontinued, Max: 200 mg/day (2 sources)Start: 09-12-2023 End: .25 mg, Oral, EVERY 48 HOURS, First dose (after last modification) on Thu09/12/23 at 0900, Until Discontinued Caution check route of administration. For sublingual administration, place liquid under tongue and allow absorption.Start: 09-09-2023 End: 31-31-9502ifzx 0.25 mg by mouth once daily0.25 mg, Oral, DAILY, First dose on Thu09/09/23 at 0900, Until Discontinued Caution check route of administration. For sublingual administration, place liquid under tongue and allow absorption. (3 sources)Start: 09-04-2023 End: 04-40-3804185 mg (rounded from 229.2 mg = 3 mg/kg 76.4 kg Adjusted weight), Intravenous, Administer over 2 Hours, EVERY 24 HOURS, First dose on Thu09/04/23 at 2000, Until Discontinued Amphotericin B liposomal is NOT compatible with normal saline. Flush line with D5W before and after administration. Start: 09-03-2023 End: 89-88-3277571 mg (rounded from 229.2 mg = 3 mg/kg 76.4 kg Adjusted weight), Intravenous, Administer over 2 Hours, ONCE, 1 dose, On Marta 09/03/23 at 1630 Amphotericin B liposomal is NOT compatible with normal saline. Flush line with D5W before and after administration.Start: 08-28-2023 End: 92-14-3175euoi 4 mg intravenously every six hours as needed[Order 1 Start] Name: Ondansetron 4mg/2ml (ZOFRAN) injection [...] [Order 2 End] Problems Active Problems Problem ClassificationProblemDateDocumented DateEpisodic/ChronicAcute and unspecified renal failure (3 sources)Chronic renal failureOnset: 837157-32-1330QgzjxklLaqtmao- related disorders (20 sources)Alcoholic cirrhosis; Translations: [Alcoholic cirrhosis of liver without ascites]Onset: 10-05-2018 Resolved: 781265-40-3461DkmyyzzSwztmej on above:Outside Source Comment: Overview: Added automatically from request for surgery [id number] disorders (20 sources)Generalized anxiety disorder; Translations: [Generalized anxiety disorder]Onset: 562679-63-1448GtlwermDtoxxhaa of urinary tract (20 sources)Calculus of ureter; Translations: [Kidney stone]Onset: 05-13-2022 Resolved: 856821-02-6669FjipxrogNgelwor kidney disease (20 sources)End stage renal failure on dialysis; Translations: [End-stage renal disease]Onset: 06-01-2018 Resolved: 529528-25-9799WqgiyllDkcsbna on above:Outside Source Comment: Overview: Added automatically from request for surgery [id number] and hemorrhagic disorders (6 sources)Hypercoagulability state; Translations: [Other primary thrombophilia] 60-09-6873XypbvumYbhytvupki heart failure; nonhypertensive (20 sources)Acute diastolic heart failure; Translations: [Acute diastolic (congestive) heart failure]Onset: 563383-35-2210HelmrqeTysuhcqx atherosclerosis and other heart disease (20 sources)Coronary arteriosclerosis; Translations: [Atherosclerotic heart disease of [place] coronary artery without angina pectoris]Onset: 04-13-2023 80-57-3959SquksvvLgsmmhiean and other anemia (3 sources)Anemia due to blood loss; Translations: [Iron deficiency anemia secondary to blood loss (chronic)]96-77-8852NujizqfMelnsnjlr of lipid metabolism (20 sources)Hyperlipidemia, unspecified; Translations: [Hyperlipidemia]Onset: 92-85-1012WutzkcpWrhlxjvnyg disorders (20 sources)Gastroesophageal reflux disease; Translations: [Gastro-esophageal reflux disease without esophagitis]Onset: 214333-91-3695DbarwsfDmjmdpuyr hypertension (20 sources)Benign essential hypertension; Translations: [Essential (primary) hypertension]Onset: 883084-63-0063OxfqlhbCagmx and electrolyte disorders (3 sources)Hypokalemia; Translations: [Hypokalemia]51-92-8046Alejajab Genitourinary symptoms and ill-defined conditions (1 source)Finding of urological device; Translations: [Encounter for attention to other artificial openings of urinary tract]ChronicGenitourinary symptoms and ill-defined conditions (20 sources)Retention of urine, unspecified; Translations: [Hematuria, unspecified]Onset: 03-18-2043LcbrcmlmErjcganz; including migraine (1 source)Headache; including migraine; Translations: [HEADACHE UNSPECIFIED] Onset: 88-22-5012Ceoczcjllip of prostate (20 sources)Benign prostatic hypertrophy with outflow obstruction; Translations: [Benign prostatic hyperplasia with lower urinary tract symptoms]Onset: 34-20-5245WybukkyLccpvgqzjnrf with complications and secondary hypertension (1 source)Renal hypertension; Translations: [Hypertension secondary to other renal disorders]43-74-9447DcpnlnyQmjjuvrs disorders (20 sources)Immunosuppression; Translations: [Immunodeficiency, unspecified] Onset: 88-44-6438HvfcealRuribidrhmtk conditions of male genital organs (1 source)Prostatitis; Translations: [Inflammatory disease of prostate, unspecified]Onset: 46-62-8995QhqfimufDxcopbfzvlp deficiencies (7 sources)Moderate protein energy malnutrition; Translations: [Moderate protein-calorie malnutrition]01-90-8699KxnmyigStcvhgshfwza (20 sources)Osteoporosis; Translations: [Other osteoporosis without current pathological fracture]Onset: 132530-80-0209TqtirleMhrha aftercare (3 sources)Transplant follow-up; Translations: [Encounter for aftercare following other organ transplant]ChronicOther aftercare (1 source)Encounter for aftercare following other organ transplant; Translations: [ENC AFTERCARE FLW OT ORGNTRANSPL]Onset: 25-55-7166SbgyqtnUblxz aftercare (1 source)Follow-up status; Translations: [Encounter for follow-up examination after completed treatment for conditions other than malignant neoplasm]Episodic Other aftercare (4 sources)Taking high risk medication; Translations: [Other jail (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]EpisodicOther aftercare (2 sources)Patient encounter status; Translations: [Encounter for therapeutic drug level monitoring]21-09-0002YqebubicUyjmj and ill-defined heart disease (20 sources)Dysfunction of papillary muscle; Translations: [Other ill-defined heart diseases]Onset: 599092-16-3098XmxwhjdQdqtc and ill-defined heart disease (20 sources)Diastolic dysfunction; Translations: [Other ill-defined heart diseases]Onset: 091617-98-6857NtsxbrrLogsk diseases of kidney and ureters (3 sources)Secondary hyperparathyroidism; Translations: [Secondary hyperparathyroidism of renal origin]76-91-8479TcooixpZymkx diseases of kidney and ureters (4 sources)Hydronephrosis; Translations: [Hydronephrosis with ureteral stricture, not elsewhere classified]EpisodicOther diseases of kidney and ureters (1 source)Urinary tract obstruction; Translations: [Other obstructive and reflux uropathy]Onset: 97-62-1628DfmrkbiwFkdyo endocrine disorders (4 sources)Hyperparathyroidism due to vitamin D deficiency; Translations: [Secondary hyperparathyroidism, not elsewhere classified]92-03-7308DeqlfckNsfed gastrointestinal disorders (3 sources)Irritable bowel syndrome characterized by constipation; Translations: [Irritable bowel syndrome with constipation]53-60-7128IdksxefGewmr gastrointestinal disorders (2 sources)Irritable bowel syndrome with constipation; Translations: [Irritable bowel syndrome]88-96-3091FexndotNouoy gastrointestinal disorders (1 source)Change in bowel habit; Translations: [Change in bowel habit]Onset: 85-77-6788FcusnjcyLhowb gastrointestinal disorders (1 source)Heartburn; Translations: [Heartburn]Onset: 00-33-2792QdqkvpntFyskd liver diseases (20 sources)Cirrhosis of liver; Translations: [Unspecified cirrhosis of liver] Onset: 837069-80-9793BiatwrwDwsrh liver diseases (1 source)Cirrhosis and chronic liver disease; Translations: [Unspecified cirrhosis of liver]Onset: 010047-93-4907LcttucjFsoet liver diseases (20 sources)Chronic liver disease; Translations: [Unspecified cirrhosis of liver]Onset: 105379-17-5063KziotvkSugwijg on above:Outside Source Comment: Overview: Added automatically from request for surgery [id number] liver diseases (3 sources)Liver transplant status; Translations: [LIVER TRANSPLANT STATUS] Onset: 76-16-6282XdnxeyaUvpkl liver diseases (1 source)Lesion of liver; Translations: [Liver disease, unspecified]06-17-2024 ChronicOther liver diseases (20 sources)Portal hypertension; Translations: [Portal hypertension]Onset: 611873-35-1742XwofzhaErnly liver diseases (3 sources)Hepatorenal syndrome; Translations: [Hepatorenal syndrome]09-27-2018 ChronicOther lower respiratory disease (1 source)Hypoxia; Translations: [Hypoxemia]23-22-7382SiueeqbcUadyn male genital disorders (20 sources)Male erectile dysfunction, unspecified; Translations: [Erectile dysfunction]Onset: 68-63-0500CskhmzlJdsgb male genital disorders (1 source)Personal history of other diseases of male genital organsOnset: 97-30-9552OoijducmRpskq male genital disorders (1 source)History of yaqlqfnehgn04-39-2469JbsmixlxWmkap nervous system disorders (20 sources)Peripheral nerve disease ; Translations: [Polyneuropathy, unspecified]Onset: 859617-12-3575OupoynpEirmi nervous system disorders (4 sources)Polyneuropathy; Translations: [Other specified polyneuropathies] 22-06-3160MtmiknbPyepq nutritional; endocrine; and metabolic disorders (20 sources)Obese class I; Translations: [Obesity, unspecified]Onset: 04-09-2020 44-98-8352ZswgysdRhlsk nutritional; endocrine; and metabolic disorders (1 source)Obesity; Translations: [Obesity, unspecified]Onset: 11-03-2023 99-47-9002OsjxebuYqwbx nutritional; endocrine; and metabolic disorders (20 sources)Body mass index 30+ - obesity; Translations: [Obesity, unspecified] Onset: 457785-65-4588OxbqextRavrs nutritional; endocrine; and metabolic disorders (3 sources)Hyperammonemia; Translations: [Disorder of urea cycle metabolism, unspecified]37-88-8964NhpeakmYkiaa nutritional; endocrine; and metabolic disorders (2 sources)Morbid obesity; Translations: [Morbid (severe) obesity due to excess calories]22-04-1421KdlealfLzlwa nutritional; endocrine; and metabolic disorders (1 source)Obesity caused by energy imbalance; Translations: [Other obesity due to excess calories]10-48-5795ZgzybtjBkrai screening for suspected conditions (not mental disorders or infectious disease) (1 source)CT of chest abnormal; Translations: [Abnormal findings on diagnostic imaging of other specified body structures]77-21-1900GneqljsLmsjx screening for suspected conditions (not mental disorders or infectious disease) (20 sources)Abnormal quantity of physiologic substance; Translations: [Blood chemistry abnormal]Onset: 866288-49-4626KcknmblfMqmvmotica and visceral atherosclerosis (1 source)Atherosclerosis of aorta; Translations: [Atherosclerosis of aorta] 31-60-0158ZejoajoVhwwzvtbr (except that caused by tuberculosis or sexually transmitted disease) (3 sources)Pneumonia; Translations: [Pneumonia, unspecified organism]08-23-2018 EpisodicResidual codes; unclassified (20 sources)Awaiting transplantation of liver; Translations: [Awaiting organ transplant status]Onset: 147093-07-5786LdeqorvYcovgthe codes; unclassified (20 sources)Obstructive sleep apnea syndrome; Translations: [Obstructive sleep apnea (adult) (pediatric)]Onset: 076510-37-5651LimwzfoMvbeinxl codes; unclassified (1 source)Other general symptoms and signs; Translations: [Other general symptoms]49-69-3279SatvveexYvkvgtxappp failure; insufficiency; arrest (adult) (4 sources)Acute respiratory failure; Translations: [Acute respiratory failure with hypoxia]45-07-0571ItnzgfjmNlnodufjhnlz (17 sources)Awaiting transplantation of liver; Translations: [Pre-transplant evaluation for liver transplant]Onset: 416997-33-2713Kfiuokeglhbt (1 source)CONTACT W/AND (SUSP) EXPOS COVID-19; Translations: [CONTACT W/AND (SUSP) EXPOS COVID-19]Onset: 08-15-8378Ifcgwxjtkpev (20 sources)New PatientOnset: 975156-94-5934Scgtcjduffjy (20 sources)Access to Medication(s)Onset: 550461-99-6184Jdklbgsobjke (20 sources)Safety: Avoid toxicity that would cause discontinuationOnset: 890355-55-1472Czdzyrkgipaj (20 sources)Identify and eliminate barriers to patient adherenceOnset: 930180-49-8043Nryvmuyqzike (20 sources)Ensure that patient is receiving therapeutic benefitOnset: 633438-10-3398Wgiebzyglzgh (5 sources)Patient encounter pzcaqy84-57-7325Zpyucgyizalh (1 source)Other pericardial effusion (noninflammatory); Translations: [Other pericardial effusion (noninflammatory)]Onset: 12-60-5389Nntlymvnfzsz (2 sources)Liver Recipient Follow-up; Translations: [Liver Recipient Follow-up] Onset: 09-20-2025 Past or Other Problems Problem ClassificationProblemDateDocumented DateEpisodic/ChronicAbdominal hernia (20 sources)Umbilical hernia; Translations: [Umbilical hernia without obstruction or gangrene]Onset: 019246-04-4966OwssvdhuMipmmnnin pain (20 sources)Generalized abdominal pain; Translations: [Generalized abdominal pain]Onset: 827339-16-0659HmruhpcwOwkzo and unspecified renal failure (20 sources)Acute injury of kidney; Translations: [Acute kidney failure, unspecified]Onset: 05-15-2022 Resolved: 07-24-1809DinsvbxgFzembfqp reactions (20 sources)Eczema; Translations: [Dermatitis, unspecified]Onset: 02-25-2024 03-56-8326MxzsbppcWijqzbuvpcaa of device; implant or graft (20 sources)Complication of dialysis; Translations: [Unspecified complication of cardiac and vascular prosthetic device, implant and graft, initial encounter] Onset: 156862-97-5883EnuittpbMbfapfvweynng of surgical procedures or medical care (4 sources)Malfunction of incontinent external stoma of urinary tract; Translations: [MALFUNC INCONT EXT STOMAURIN TRACT]Onset: 86-30-3860Sfabmkoz Deficiency and other anemia (1 source)Anemia, unspecified; Translations: [ANEMIA UNSPECIFIED]Onset: 22-05-0860ZuidukuqWeigalsnwd and other anemia (20 sources)Anemia; Translations: [Anemia, unspecified]Onset: 10-07-2019 42-66-8344LprcspsdLxkqvwil mellitus without complication (20 sources)Hyperglycemia; Translations: [Hyperglycemia, unspecified]Onset: 031043-05-2367CeogiezfRxshn of unknown origin (20 sources)Fever; Translations: [Fever, unspecified]Onset: 08-28-2023 Resolved: 374987-69-2489UvdfwwdbNjhytvyiqpyiqqmj hemorrhage (20 sources)Gastrointestinal hemorrhage; Translations: [Gastrointestinal hemorrhage, unspecified]Onset: 11-03-2023 Resolved: 121063-45-5831PwqwezfdYszttjs and fatigue (20 sources)Asthenia; Translations: [Weakness]Onset: 044514-94-8551 EpisodicMood disorders (20 sources)Mood disordersOnset: 02-11-2024 Resolved: 309928-68-1453Swmsdab (20 sources)Histoplasmosis; Translations: [Histoplasmosis, unspecified]Onset: 992512-15-3941OvbcrdoqEofayj and vomiting (20 sources)Nausea and vomiting; Translations: [Nausea with vomiting, unspecified]Onset: 852952-19-3768VjflbpgvOtvvp aftercare (1 source)Other jail (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; Translations: [OTH LONGTERM 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 THERAPY]Onset: 98-86-3749MffxgontTsztk aftercare (1 source)long-term (current) use of aspirin; 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: [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]Onset: 01-38-9851WdqjfojaLlsyp circulatory disease (4 sources)Other specified symptoms and signs involving the circulatory and respiratory systems; Translations:[OTH SPEC SX SIGNS INVLV CIRC RS]Onset: 92-03-2950PrlwqflmQuvlt circulatory disease (20 sources)Carotid bruit; Translations: [Other specified symptoms and signs involving the circulatory and respiratory systems]Onset: EpisodicOther diseases of kidney and ureters (1 source)Other obstructive and reflux uropathy; Translations: [OTHER OBSTRUCTIVE AND REFLUX UROPATHY]Onset: 21-07-4488OnjundaiHkojk diseases of kidney and ureters (4 sources)Other hydronephrosis; Translations: [OTHER HYDRONEPHROSIS]Onset: 09-49-0637AwbttydlVgvjt diseases of kidney and ureters (1 source)Hydronephrosis with renal and ureteral calculous obstruction; Translations: [HYDRONPHROS RENL AND URETRL CALCUL OBST]Onset: 61-47-5615Pgivvfpm Other gastrointestinal disorders (20 sources)Constipation; Translations: [Other constipation]Onset: 08-23-2024 85-06-6066AgwodzquVaavx liver diseases (20 sources)Hepatic encephalopathy; Translations: [Hepatic failure, unspecified without coma]Onset: 733311-81-3379YldfsrktCcfcu liver diseases (20 sources)Hepatic failure; Translations: [Hepatic failure, unspecified without coma]Onset: 911168-71-1345XjligrdlUlspm lower respiratory disease (20 sources)Dyspnea; Translations: [Shortness of breath]Onset: 01-06-2024 83-42-9384DkjdhtojOzrfl nervous system disorders (20 sources)Tremor; Translations: [Tremor, unspecified]Onset: 11-03-2023 27-25-5953ZuhctbfoSzbhz nutritional; endocrine; and metabolic disorders (20 sources)Body mass index 25-29 - overweight; Translations: [Overweight]Onset: 04-18-2024 Resolved: 762270-04-5808JvasucawEsavi nutritional; endocrine; and metabolic disorders (20 sources)Hyperuricemia; Translations: [Hyperuricemia without signs of inflammatory arthritis and tophaceous disease]Onset: EpisodicPancreatic disorders (not diabetes) (20 sources)Pancreatitis; Translations: [Acute pancreatitis without necrosis or infection, unspecified]Onset: 02-11-2024 Resolved: 606358-05-3210LmqyyklySdpptnfv; pneumothorax; pulmonary collapse (20 sources)Pleural effusion; Translations: [Pleural effusion, not elsewhere classified]Onset: 189481-91-9954SyhkfltgAgphtyed codes; unclassified (20 sources)H/O: tissue/organ recipient; Translations: [Transplanted organ and tissue status, unspecified]Onset: 11-03-2023 Resolved: 966454-68-7549NmzdljySfehbevm codes; unclassified (1 source)Ill-defined and unknown cause of mortality; Translations: [ILL-DEFINED UNKNOWN CAUSE MORTALITY]Onset: 23-92-6374PamkpcoyMnfuucxc codes; unclassified (20 sources)Bilateral lower limb edema; Translations: [Localized edema]Onset: 388138-86-9086ZagdkpkcVhjmwsik codes; unclassified (20 sources)Insomnia; Translations: [Insomnia, unspecified]Onset: 01-06-2024 57-03-8580UmieqpjhLhjvjcwyj and history of mental health and substance abuse codes (1 source)Personal history of nicotine dependence; Translations: [PERSONAL HISTORY OF NICOTINE DEPEND]Onset: 18-67-8186DotzlfjuQarvxaasjbbs (1 source)Other pericardial effusion (noninflammatory); Translations: [Other pericardial effusion (noninflammatory)]Onset: 03-22-2025 Results Test NameValueInterpretationReference RangeFacilityAmbulatory Visit Summaryon 82-29-7924Fhldyjcoab Visit SummaryAmbulatory Visit Summary GEORGE STYLES :1970 Visit Date:09/27/2025 Ambulatory Visit Instructions Your Diagnosis History of prostatitis BPH with urinary obstruction Screening PSA (prostate specific antigen) Weak urine stream Erectile dysfunction History of kidney transplant History of kidney stones Tests Performed US Renal -- Results Pending -- XR Abdomen 1 View -- Results Pending -- Please visit your patient portal for your results or contact your primary care physician. Your Care Team Attending Physician - Clementina [...] 3350 (polyethylene glycol 3350 17 gram packet) sulfamethoxazole-trimethoprim (sulfamethoxazole-trimethoprim 800 mg-160 mg Tab) tacrolimus (tacrolimus 0.5 mg oral capsule) tadalafil (Cialis 10 mg Tab) tamsulosin (tamsulosin 0.4 mg Cap) torsemide (torsemide 20 mg Tab) Procedures Performed Colonoscopy (12/26/2024), Esophagogastroduodenoscopy (12/26/2024), Kidney transplant (2019), Transplantation of liver (2019). Discharge Vitals Heart Rate (Peripheral) 85 Blood Pressure 140/88 Height 170 cm Height 67 in Weight 95.8 kg Weight 211.203 lb BMI 33.15 What to do next You Need to Schedule the Following Appointments Follow Up with Jaguar CASTILLO, LEANDRO Greenberg When: Comments: 6 mos Where: Medications What How Much When Instructions Unchanged [...] by mouth every 8 hours if needed fornausea or vomiting for up to 10 days Unchanged polyethylene glycol 3350 (polyethylene glycol 3350 17 gram packet) By Mouth Every day Unchanged sulfamethoxazole-trimethoprim (sulfamethoxazole-trimethoprim 800 mg- 160 mg Tab) Unchanged tacrolimus (tacrolimus 0.5 mg [...] Erectile dysfunction Hepatic encephalopathy History of kidney stones History of kidney transplant History of prostatitis Prostate cancer screening Screening PSA (prostate specific antigen) Weak urine stream Patient Survey You may receive a survey via text or e-mail asking about your office visit. Please share your experience with us by completing your survey. We appreciate your feedback and thank you for choosing us for your care. Education Materials Prostate Cancer Screening Prostate cancer screening is [...] prostate cancer. You should talk with your healthcare provider about your need for screening and how often screening should be done. Because most prostate cancers are slow growing and will not cause , screening in this age group is generally res (more content not included)...[facility] CenterUrology Office/Clinic Noteon [id number] Office/Clinic NoteUrology Office/Clinic Note Chief Complaint 6 month w. PSA HPI Staff 6 month follow up w/PSA at [facility] Previous DX: prostatitis, BPH with urinary obstruction, ED, screening PSA and HX of kidney transplant Tamsulosin 0.4mg BID, Cialis 10mg PRN Previous PSA 08/29/24 - 0.85 Current PSA 1.49 09/13/25 IPSS: 12 LINDEN:18 Denies dysuria, denies visible blood in urine. No urinary complaints at this time History of Present Illness Tests reviewed: reviewed UA I have reviewed the previous health record information and history for this patient from Clementina Montesinos NP. I have reviewed and verified the staff HPI to be accurate for this encounter. Review of Systems PHQ Score Initial Depression Screen Score: 0 SCORE ROS - Provider Constitutional: denies weight [...] HPI. Physical Exam Vitals & Measurements HR: 85(Peripheral) BP: 140/88 HT: 67 in HT: 170 cm WT: 211.203 lb WT: 95.8 kg BMI: 33.15 General Appearance: alert, no distress, well nourished, well developed male. Assessment/Plan 1. History of prostatitis (Z87.438: Personal history of other diseases of male genital organs) UA today neg for blood or infection. PVR 01/03/25 - 90ml 03/23/25 - 121 ml Tx'd for prostatitis in 01/24 w/ 4-week course of Doxycycline 100mg BID with sxs of spraying urine stream, perineal pressure and dysuria that subsided after abx. Today, he reports minor sxs, roughly the same as prior OV. Denies pain/discomfort with urination orgross hematuria. Occasional strain, not bothersome, feels he is emptying well. Encouraged pt to cont double voiding with patient, he verbalizes understanding. -Increase fluids, avoid bladder irritants -Timed and double voids -Call our office for any return of prostatitis symptoms 2. BPH with urinary obstruction (N40.1: Benign prostatic hyperplasia with lower urinary tract symptoms) 01/17/24 CT abd/pelvis w/o con - prostate and seminal vesicles are unremarkable. UA today neg for blood or infection PVR 01/03/25 - 90ml 03/23/25 - 121 ml IPSS 12 (16), QoL 2 Pt has been taking Flomax 0.4mg BID since October. Pt reports that he continues to have intermittent weak stream. Overall, happy with his urinary sxs currently. Again discussed next steps to assess male anatomy which includes cystoscopy and TRUS for sizing. if his sxs become bothersome in the future. Also discussed MIPPs including Rezum and UroLift, also touched on TURP procedure but patient knows that cysto/TRUS would be the first step. Pt reports that he is satisfied with his urination at this time. Discussed long-term use SEs of Flomax and it's effect on the bladder. For now, pt would like to cont Flomax wo changes. -Continue Flomax 0.4mg PO BID. Pt to call for refills. -Increase fluids, avoid bladder irritants -Timed and double voids 3. Screening PSA (prostate specific antigen) (Z12.5: Encounter for screening for malignant neoplasmof prostate) PSAs: 09/15/22 - 0.79 08/29/24 - 0.85 09/13/25 - 1.49 PSA increased from prior. All values drawn at [place]. Discussed it is recommended to monitor thisincrease and check PSA q3 mos. If PSA continues to rise, pt aware the next steps would be a MRI of the prostate with could lead to a biopsy. Will call with results of PSA in 3 months. If remains elevated, will order prostate MRI. If decreased, will repeat PSA FT in 3 months. -Check PSA in 3 mos. If still elevated, MRI of the prostate and f/u with [facility] to discuss results of MRI 4. Weak urine stream (R39.12: Poor urinary stream) See #2 5. Erectile dysfunction (N52.9: Male erectile dysfunction, unspecified) LINDEN 16 (19, 3) Taking Cialis 10mg PRN. Pt is still very satisfied with current dosing. No need for change at this time. -Continue Cialis 10mg PRN 6. History of kidney transplant (Z94.0: Kidney transplant status) 01/17/24 CT abd/pelvis w/o con - severe atrophy of the bilateral lower sioux kidney is without hydro. R lower quadrant renal transplant without hydro. 08/29/24 - BUN 18, Cre 1.3, GFR 58 Pt had liver and kidney transplant in 2019 and follows yearly with [facility]. Due for labsin April. Pt reports being on Bactrim 3x weeks for kidney transplant. 7. History of kidney stones (Z87.442: Personal history of urinary calculi) 01/17/24 CT abd/pelvis w/o con - 2mm nonobstructive renal transplant stone. Bladder is normal. Reports h/o stones in 2022. Unsure if he has any present today. Believes the last time he had imaging was a couple years ago. Denies abdomen/flank pain or gross hematuria. Recommend updated imagin (more content not included)...[facility] CenterComment on above:Result Comment: Electronically Signed By: Clementina James\.br\Date and Time Signed: 09/27/25 09:51 EDT\.br\Electronically Co-Signed By: Starla Noyola\.br\Date and Time Co-Signed: 09/27/25 09:44 EDTALL CBC WITH AUTO DIFFon [id number] ABSOLUTE [id number] HealthcareBasophils/100 WBC (Bld)0.6 %0.2 - 2.0 %NOMS HealthcareEosinophils/100 WBC (Bld)3.6 %0.9 - 7.0 %[facility] Erythrocyte distribution width (RBC) [Ratio]12.2 %11.0 - 15.0 %[facility] Hematocrit (Bld) [Volume fraction]45.9 %42.0 - 54.0 %[facility] HospitalHemoglobin (Bld) [Mass/Vol]15.7 g/dL14.0 - 18.0 g/dLSANPETE VALLEY HOSPITAL HealthcareIMMATURE GRANULOCYTES ABS AUTO0.01NOMS HealthcareImmature granulocytes/100 WBC (Bld)0.2 %0.0 - 0.5 % NOMEastern [facility] HospitalLYMPHOCYTES ABSOLUTE AUTO1.7NOMS HealthcareLymphocytes/100 WBC (Bld)32.8 %20.5 - 60.0 %[facility] NorthH (RBC) [Entitic mass]29.4 pg25.9 - 34.0 pgNOGolden Valley Memorial HospitalHC (RBC) [Mass/Vol]34.2 g/dL29.9 - 35.2 g/dLCox NorthV (RBC) [Entitic vol]86 fL80.0 - 94.0 fLNOLee's Summit HospitalMONOCYTES ABSOLUTE AUTO0.5NOMS HealthcareMonocytes/100 WBC (Bld)9.3 %1.7 - 12.0 %NOMS HealthcareNEUTROPHILS ABSOLUTE AUTO2.7NOMS HealthcareNeutrophils/100 WBC (Bld) 53.5 %43.0 - 75.0 %NOMS HealthcarePlatelet mean volume (Bld) [Entitic vol]9.8 fL 9.5 - 13.5 fLNOLee's Summit HospitalTBH EO #0.2NOMS HealthcareTBH [id number] Healthcare TBH RBC5.34NOMS [facility] HospitalTBH WBC5.1NOMS HealthcareCLINISYNCNINTEGRIS BAP[facility] [facility] HealthcareALL CBC WITH AUTO DIFFon [id number] ABSOLUTE [id number] Healthcare Basophils/100 WBC (Bld)0.6 %0.2 - 2.0 %NOMS HealthcareEosinophils/100 WBC (Bld) 3.2 %0.9 - 7.0 %NOMEastern Missouri State HospitalErythrocyte distribution width (RBC) [Ratio]12.5 %11.0 - 15.0 %NOM HealthcareHematocrit (Bld) [Volume fraction]46.3 %42.0 - 54.0 %NOMEastern Missouri State HospitalHemoglobin (Bld) [Mass/Vol]15.8 g/dL14.0 - 18.0 g/dLBarnes-Jewish West County HospitalIMMATURE GRANULOCYTES ABS AUTO0.01NOMS [facility] HospitalImmature granulocytes/100 WBC (Bld)0.2 %0.0 - 0.5 %NOMEastern Missouri State HospitalLYMPHOCYTES ABSOLUTE AUTO1.4NOMS [facility] HospitalLymphocytes/100 WBC (Bld)31 %20.5 - 60.0 %[facility] MCH (RBC) [Entitic mass]29.6 pg25.9 - 34.0 pgNOLee's Summit HospitalMCHC (RBC) [Mass/Vol]34.1 g/dL29.9 - 35.2 g/dLBarnes-Jewish West County HospitalMCV (RBC) [Entitic vol]86.9 fL 80.0 - 94.0 fLNOLee's Summit HospitalMONOCYTES ABSOLUTE AUTO0.5NOMS [facility] Monocytes/100 WBC (Bld)10.6 %1.7 - 12.0 %NOMS HealthcareNEUTROPHILS ABSOLUTE AUTO2.5NOMS HealthcareNeutrophils/100 WBC (Bld)54.4 %43.0 - 75.0 %NOM HealthcarePlatelet mean volume (Bld) [Entitic vol]9.8 fL9.5 - 13.5 fLNOCitizens Memorial Healthcare EO #0.2NOMS HealthcareTB [id number] HealthcareTB RBC5.33NOCitizens Memorial Healthcare WBC4.6NOPA HealthcareCLINISYNCNOMS HealthcareAmbulatory Visit Summaryon [id number] Visit SummaryAmbulatory Visit Summary GEORGE STYLES :1970 Visit Date:03/23/2025 [...] 3350 (polyethylene glycol 3350 17 gram packet) sulfamethoxazole-trimethoprim (sulfamethoxazole-trimethoprim 800 mg-160 mg Tab) tacrolimus (tacrolimus 0.5 [...] by mouth every 8 hours if needed fornausea or vomiting for up to 10 days Unchanged polyethylene glycol 3350 (polyethylene glycol 3350 17 gram packet) By Mouth Every day Unchanged sulfamethoxazole-trimethoprim (sulfamethoxazole-trimethoprim 800 mg- 160 mg Tab) Unchanged tacrolimus (tacrolimus 0.5 mg [...] you for choosing us for your care. [facility] CenterUrology Office/Clinic Noteon [id number] Office/Clinic NoteUrology Office/Clinic Note Chief Complaint 4 mth f/u HPI Staff 2 month f/u with PVR Dx: prostatitis, BPH with urinary obstruction, ED, screening PSA and hx of kidney transplant Pt treated at last OV for prostatitis Doxy x4 weeks Tamsulosin BID pt states he is doing better after the doxycycline. pt still having weak stream but getting better.pt is having some intermittency mainly in the [...] prostatitis. Pt reports he completed the full 4- week course of Doxycycline 100mg BID about a month ago and his symptoms of spraying urine stream, perineal pressure and dysuria have subsided. Pt continues to report weak stream about once a day but feels this is back tohis baseline after abx treatment. Advised pt that his PVR remains slightly elevated which can contribute to recurrent infections. Discussed double voiding with patient, he verbalizes understanding. -Increase fluids, avoid bladder irritants -Timed and double voids -Call our office for any return of prostatitis symptoms Ordered: E&M of Est. Patient Moderate 30-39 Min 72718 2. BPH with urinary obstruction (N40.1: Benign [...] first step. Pt reports that he is satisfiedwith his urination at this time. Discussed long-term use SEs of Flomax and it's effect on the bladder. Pt would like to discuss next steps further at follow up in August. -Continue Flomax 0.4mg PO BID -Increase fluids, avoid bladder irritants -Timed and double voids -F/U in August to discuss next steps including cysto/TRUS for sizing Ordered: 39910 Measure Post Void residual urine and/or bladder capacity by US- non-imaging E&M of Est. Patient Moderate 30-39 Min 50146 Urnls Dip Stick Auto w/o Microscopy POC 32129 3. Weak urine stream (R39.12: Poor urinary stream) -See #2 Ordered: 47041 Measure Post Void residual urine and/or bladder capacity by US- non-imaging E&M of Est. Patient Moderate 30-39 Min 66330 Urnls Dip Stick Auto w/o Microscopy POC 94952 4. Erectile dysfunction (N52.9: Male erectile dysfunction, unspecified) LINDEN 19(3) Started taking Cialis 10mg PRN at prior OV. Pt is very satisfied with current dosing. No need for change at this time. -Continue Cialis 10mg PRN Ordered: 80491 Measure Post Void residual urine and/or bladder capacity by US- non-imaging E&M of Est. Patient Moderate 30-39 Min 04491 Urnls Dip Stick Auto w/o Microscopy POC 64512 5. Screening PSA (prostate specific antigen) (Z12.5: Encounter for screening for malignant neoplasmof prostate) PSAs: 09/15/22 - 0.79 08/29/24 - 0.85 Pt aware that he is due for PSA in July for annual check. Pt would like to obtain this at [facility]. -PSA at [facility] in early August for screening (recall placed) -F/U to review results and discuss #2 Ordered: E&M of Est. Patient Moderate 30-39 Min 41050 6. History of kidney transplant (Z94.0: Kidney transplant status) 08/29/24 - BUN 18, Cre 1.3, GFR 58 Pt had liver and kidney transplant in 2019 and follows yearly with [facility]. Due for labsin April. Pt reports being on Bactrim 3x weeks for kidney transplant. Ordered: E&M of Est. Patient Moderate 30-39 Min 75952 Follow-up With When Contact Information Gale[employer] TIME LOCK EXPERTClementina Green, URL Within 6 months Additional Instructions: w/ PSA Patient Education Benign Prostatic Hyperplasia Problem List/Past Medical History Ongoing Acute kidney injury Alcoho (more content not included)...[facility] CenterComment on above:Result Comment: Electronically Signed By: Clementina James\.br\Date and Time Signed: 03/23/25 08:54 EDTOffice Visiton [id number]-up visit [id number] George Styles 1970 M Date Provider Department Center 03/22/2025 MIGUEL PARADA [facility] Family History Problem Relation Age of Onset Coronary artery disease Mother Coronary artery disease Father Coronary artery disease Sister Coronary artery disease Brother Family Status - Relation Status Age at Mother Father Sister Alive Brother Alive Level of Service:86913 RI OFFICE/OUTPATIENT ESTABLISHED MOD MDM 30 [facility] HospitalCAL[facility] 24 HOUR URINEon [id number] 24 HOUR CGBWF371.3HighNOPA HealthcareCALCIUM URINE UKTBCX80.9 mg/dL5.1 - 21.0 mg/dL NOMS HealthcareInterpretation and review of laboratory resultsAbnormalNOMS HealthcareCREATININE 24 HOUR URINEon [id number] 24 HOUR OWKEB9268.56 NOMS HealthcareCREATININE URINE FJFGKK16.28 mg/dL20.00 - 300.00 mg/dLNOMS HealthcareTOTAL VOLUME 24 HOUR ROISR2301pW/24hrNOMS HealthcareNo Panel Informationon [id number] HealthcareSODIUM 24 HOUR URINEon [id number] (U) [Moles/Vol]74 mmol/L30 - 90 mmol/LNOMS HealthcareSODIUM 24 HOUR [id number] HealthcareALL CBC WITH AUTO DIFFon [id number] ABSOLUTE IUPH4XCYA HealthcareBasophils/100 WBC (Bld)0.9 %0.2 - 2.0 %NOMS HealthcareEosinophils/100 WBC (Bld)2.8 %0.9 - 7.0 %NOMS HealthcareErythrocyte distribution width (RBC) [Ratio]12.5 %11.0 - 15.0 %NOMS HealthcareHematocrit (Bld) [Volume fraction]47.5 %42.0 - 54.0 %NOM HealthcareHemoglobin (Bld) [Mass/Vol]16.1 g/dL14.0 - 18.0 g/dLNOPA HealthcareIMMATURE GRANULOCYTES ABS AUTO 0.01NOMS HealthcareImmature granulocytes/100 WBC (Bld)0.2 %0.0 - 0.5 %NOM[facility] HealthcareLYMPHOCYTES ABSOLUTE AUTO1.6NOMS HealthcareLymphocytes/100 WBC (Bld) 34.5 %20.5 - 60.0 %[facility] HospitalMCH (RBC) [Entitic mass]29.7 pg25.9 - 34.0 pg NOM HealthcareMCHC (RBC) [Mass/Vol]33.9 g/dL29.9 - 35.2 g/dLNOLee's Summit HospitalMCV (RBC) [Entitic vol]87.6 fL80.0 - 94.0 fLNOPA HealthcareMONOCYTES ABSOLUTE AUTO 0.4NOMS HealthcareMonocytes/100 WBC (Bld)9.1 %1.7 - 12.0 %[facility] NEUTROPHILS ABSOLUTE AUTO2.5NOMS HealthcareNeutrophils/100 WBC (Bld)52.5 %43.0 - 75.0 %[facility] HealthcarePlatelet mean volume (Bld) [Entitic vol]9.8 fL9.5 - 13.5 fL [facility] HospitalTBH EO #0.1NOMS HealthcareTB [id number] HealthcareTB RBC5.42 NOMEastern Missouri State HospitalTB WBC4.7NOMS HealthcareCLINISYNCNOMS [facility] Rut[facility] HospitalReminderson [id number] From: Paulina Morales To: EU - Administrative; Sent: 11/22/2024 09:52:41 EST Show up: 01/28/2025 09:52:00 EST Subject: Ambulatory Reminder Due Date/Time: 03/09/2025 09:52:00 EDT Reminder/Recall Patient needs scheduled with AG for a 4 month F/U, he schedule is not built yet. Due back in February 2025 LVM Pt is scheduled for March 23, 2025 @8:00am w/ AG in [place].[facility] CenterALL CBC WITH AUTO DIFFon [id number] ABSOLUTE AUTO0 NOMS HealthcareBasophils/100 WBC (Bld)0.7 %0.2 - 2.0 %[facility] Healthcare Eosinophils/100 WBC (Bld)2.9 %0.9 - 7.0 %NOMS HealthcareErythrocyte distribution width (RBC) [Ratio]12.6 %11.0 - 15.0 %NOMS HealthcareHematocrit (Bld) [Volume fraction]46.7 %42.0 - 54.0 %NOMS HealthcareHemoglobin (Bld) [Mass/Vol]15.5 g/dL 14.0 - 18.0 g/dLNOPA HealthcareIMMATURE GRANULOCYTES ABS AUTO0.01NOMS Healthcare Immature granulocytes/100 WBC (Bld)0.2 %0.0 - 0.5 %NOMS HealthcareLYMPHOCYTES ABSOLUTE AUTO1.6NOMS HealthcareLymphocytes/100 WBC (Bld)35 %20.5 - 60.0 %NOMS [facility] Hospital LimaH (RBC) [Entitic mass]29.5 pg25.9 - 34.0 pgNOLee's Summit HospitalMCHC (RBC) [Mass/Vol]33.2 g/dL29.9 - 35.2 g/dLNOLee's Summit HospitalMCV (RBC) [Entitic vol]88.8 fL 80.0 - 94.0 fLNOPA HealthcareMONOCYTES ABSOLUTE AUTO0.4NOMS Healthcare Monocytes/100 WBC (Bld)9.3 %1.7 - 12.0 %NOMS HealthcareNEUTROPHILS ABSOLUTE AUTO 2.3NOMS HealthcareNeutrophils/100 WBC (Bld)51.9 %43.0 - 75.0 %[facility]S [facility] Platelet mean volume (Bld) [Entitic vol]9.9 fL9.5 - 13.5 fLNOMS [facility] HospitalTBH EO #0.1NOMS HealthcareTB [id number] [facility] HospitalTB RBC5.26NOMS [facility] HospitalTB WBC4.5 NOMS HealthcareCLINISYNCNOMS HealthcareAmbulatory Visit Summaryon 01-03-2025 Ambulatory Visit SummaryAmbulatory Visit Summary GEORGE STYLES :1970 Visit Date:01/03/2025 [...] 3350 (polyethylene glycol 3350 17 gram packet) sulfamethoxazole-trimethoprim (sulfamethoxazole-trimethoprim 800 mg-160 mg Tab) tacrolimus (tacrolimus 0.5 [...] APRN, [place] [facility] Where: [facility] [address] [place] [address] [place] [address]- You Need to Schedule the Following Appointments Follow Up with JONATHAN Almodovar APRN, [place] [facility], RUMA, URL When: Where: Medications What How Much When Instructions New doxycycline (doxycycline hyclate 100 mg Cap) 1 Capsules By Mouth 2 times a day Duration: 4 Weeks may substitute hyclate for monohydrate based on availability Pickup at [id number] Unchanged allopurinol (allopurinol 100 mg Tab) [...] 1 capsule by mouth at bedtime Contact prescribingphysician if questions or concerns Unchanged melatonin (melatonin 3 mg oral disintegrating strip) By Mouth Contact prescribing physician if questions or concerns Unchanged mycophenolic acid (mycophenolic acid 360 mg oral enteric coated tablet) 2 Tablets Contactprescribing physician if questions or concerns Unchanged ondansetron (ondansetron 4 mg Dis Tab) Take 1 tablet by mouth every 8 hours if needed fornausea or vomiting for up to 10 days Contact prescribing physician if questions or concerns Unchanged polyethylene glycol 3350 (polyethylene glycol 3350 17 gram packet) By Mouth Every day Contact prescribing physician if questions or concerns Unchanged sulfamethoxazole-trimethoprim (sulfamethoxazole-trimethoprim 800 mg- 160 mg Tab) Contact prescribing physician if questions [...] physician if questions or concerns Pharmacy Information [facility]: [address] [place], [place] [phone] [phone] Allergies shellfish (Anaphylaxis) Problems Ongoing - Any [...] or e-mail asking a (more content not included)...[facility] CenterUrology Office/Clinic Noteon [id number] Office/Clinic NoteUrology Office/Clinic Note Chief Complaint Urine stream HPI [...] Pt understands and agrees with plan. Ordered: 66992 Measure Post Void residual urine and/or bladder capacity by US- non-imaging Urnls Dip Stick Auto w/o Microscopy POC 28210 3. Erectile dysfunction (N52.9: Male erectile dysfunction, unspecified) LINDEN (3) Started taking Cialis 10mg PRN at prior OV. Ordered: Urnls Dip Stick Auto w/o Microscopy POC 26511 4. Screening PSA (prostate specific antigen) (Z12.5: Encounter for screening for malignant neoplasmof prostate) PSA 09/15/22 - 0.79 08/29/24 - 0.85 Reviewed PSA w patient today. Ordered: Urnls Dip Stick Auto w/o Microscopy POC 04430 5. History of kidney transplant (Z94.0: Kidney transplant status) 08/29/24 - BUN 18, Cre 1.3, GFR 58 Pt had liver and kidney transplant in 2019 and follows yearly with [facility]. [1] Pt reports being on Bactrim 3x weeks for kidney transplant. Ordered: Urnls Dip Stick Auto w/o Microscopy POC 41932 Orders: doxycycline, 100 mg = 1 cap(s), Oral, BID, may substitute hyclate for monohydrate based on availability, X 4 week(s), # 56 cap(s), Refills(s) 0, Pharmacy: [facility], 170, cm, 01/03/25 11:03:00 EST, Height/Length [...] made by me. Authenticat (more content not included)...[facility] CenterComment on above:Result Comment: Electronically Signed By: JONATHAN Almodovar APRN, [place]\.br\Date and Time Signed: 01/03/25 11:33 EST\.br\Electronically Co-Signed By: Diana De La Vega\.br\Date and Time Co-Signed: 01/03/25 11:27 ESTALL CBC WITH AUTO DIFFon 12-28-2024 BASOPHILS ABSOLUTE [id number] HealthcareBasophils/100 WBC (Bld)0.7 %0.2 - 2.0 % NOMS HealthcareEosinophils/100 WBC (Bld)3.1 %0.9 - 7.0 %[facility] Healthcare Erythrocyte distribution width (RBC) [Ratio]12.5 %11.0 - 15.0 %[facility] Hematocrit (Bld) [Volume fraction]46.8 %42.0 - 54.0 %NOMS HealthcareHemoglobin (Bld) [Mass/Vol]15.4 g/dL14.0 - 18.0 g/dLNOMS HealthcareIMMATURE GRANULOCYTES ABS [id number] HealthcareImmature granulocytes/100 WBC (Bld)0 %0.0 - 0.5 %[facility] HospitalLYMPHOCYTES ABSOLUTE AUTO1.5NOPA HealthcareLymphocytes/100 WBC (Bld) 34.5 %20.5 - 60.0 %[facility] NorthH (RBC) [Entitic mass]28.9 pg25.9 - 34.0 pg [facility] NorthHC (RBC) [Mass/Vol]32.9 g/dL29.9 - 35.2 g/dLCox NorthV (RBC) [Entitic vol]87.8 fL80.0 - 94.0 fLSANPETE VALLEY HOSPITAL HealthcareMONOCYTES ABSOLUTE AUTO 0.4NOPA HealthcareMonocytes/100 WBC (Bld)9.8 %1.7 - 12.0 %[facility] NEUTROPHILS ABSOLUTE AUTO2.2NOMS HealthcareNeutrophils/100 WBC (Bld)51.9 %43.0 - 75.0 %[facility] HospitalPlatelet mean volume (Bld) [Entitic vol]9.5 fL9.5 - 13.5 fL [facility] HospitalTB EO #0.1NOMS HealthcareTBH [id number] HealthcareTBH RBC5.33 [facility] HospitalTB WBC4.2NOMS HealthcareCLINISYNCNOMS HealthcareAmbulatory Visit Summaryon [id number] Visit SummaryAmbulatory Visit Summary GEORGE STYLES :1970 Visit Date:08/24/2024 [...] 3350 (polyethylene glycol 3350 17 gram packet) sulfamethoxazole-trimethoprim (sulfamethoxazole-trimethoprim 800 mg-160 mg Tab) tacrolimus (tacrolimus 0.5 [...] by mouth every 8 hours if needed fornausea or vomiting for up to 10 days Unchanged polyethylene glycol 3350 (polyethylene glycol 3350 17 gram packet) By Mouth Every day Unchanged sulfamethoxazole-trimethoprim (sulfamethoxazole-trimethoprim 800 mg- 160 mg Tab) Unchanged tacrolimus (tacrolimus 0.5 mg [...] you for choosing us for your care. [facility] CenterUrology Office/Clinic Noteon [id number] Office/Clinic NoteUrology Office/Clinic Note Chief Complaint follow up HPI [...] with voice recognition artificial intelligence software, specifically [employer], [employer] and or [employer]. Substitutions may have occurred due to the [...] pharmacy refused to fill it for twice dailydosing. I sent another Rx for twice daily dosing and advised patient to call our office if he has any further issues. He is tolerating this dosing well without significant side effects. We discussed potential for cystoscopy in the future to assess degree of bladder outlet obstruction,evaluate for potential procedures in the future. Patient is not interested in this time, but would like a close follow-up to reassess how he is doing on the twice daily dosing. UA today without blood or infection. PVR today 68 ml -Continue tamsulosin 0.4 mg twice daily -Follow-up 4 months per patient preference Ordered: 67512 Measure Post Void residual urine and/or bladder capacity by US- non-imaging Urnls Dip Stick Auto w/o Microscopy POC 44365 2. Erectile dysfunction (N52.9: Male erectile dysfunction, [...] yearly with [facility]. [1] Orders: tadalafil, 10 mg = 1 tab(s), Oral, As Directed, take 1 tab at least 1 hr prior to intercourse, do not exceed 20 mg (2 tab) in 24 hrs, # 30 tab(s), Refills(s) 5, Pharmacy: [facility], 170, cm, 11/22/24 9:39:00 EST, Height/Length Dosing, 90, kg, 12... tamsulosin, 0.4 mg = 1 cap(s), Oral, BID, X 30 day(s), # 60 cap(s), Refills(s) 11, Pharmacy: [facility], 170, cm, 09/08/24 14:00:00 EDT, Height/Length Dosing, 90, kg, 09/08/24 14:00:00 EDT, Weight Dosing tamsulosin, 0.4 mg = 1 cap(s), Oral, BID, X 90 day(s), # 180 cap(s), Refills(s) 3, Pharmacy: [facility], 170, cm, 09/08/24 14:00:00 EDT, Height/Length Dosing, 90, kg, 09/08/24 14:00:00 EDT, Weight Dosing Follow-up With When Contact Information Jaguar CASTILLO, Clementina Mejias, LEANDRO Additional Instructions: 4 mos Patient Education Cancer Screening for Males Erectile Dysfunction Benign Prostatic Hyperplasia Problem List/Past Medical History Ongoing Acute kidney injury Alcoholic cirrhosis Anemia Benign essential hypertension BPH with urinary obstruction Chronic liver disease (more content not included)...[facility] CenterComment on above:Result Comment: Electronically Signed By: JONATHAN Almodovar APRN, Steph Wilson\.br\Date and Time Signed: 11/22/24 09:58 ESTALL CBC WITH AUTO DIFFon 08-26-6639LIIMAGHAW ABSOLUTE AEXS1MQOQ HealthcareBasophils/100 WBC (Bld) 0.7 %0.2 - 2.0 %NOMS HealthcareEosinophils/100 WBC (Bld)2.6 %0.9 - 7.0 %NOMS HealthcareErythrocyte distribution width (RBC) [Ratio]12.5 %11.0 - 15.0 %NOMS HealthcareHematocrit (Bld) [Volume fraction]47.5 %42.0 - 54.0 %[facility] Healthcare Hemoglobin (Bld) [Mass/Vol]15.6 g/dL14.0 - 18.0 g/dLNOPA HealthcareIMMATURE GRANULOCYTES ABS [id number] HealthcareImmature granulocytes/100 WBC (Bld)0 %0.0 - 0.5 %NOMS HealthcareLYMPHOCYTES ABSOLUTE AUTO1.6NOMS HealthcareLymphocytes/100 WBC (Bld)36.3 %20.5 - 60.0 %NOMFulton State HospitalH (RBC) [Entitic mass]28.6 pg25.9 - 34.0 pgNOMS [facility]red Hospital LimaHC (RBC) [Mass/Vol]32.8 g/dL29.9 - 35.2 g/dLNOGolden Valley Memorial HospitalV (RBC) [Entitic vol]87.2 fL80.0 - 94.0 fLNOMS HealthcareMONOCYTES ABSOLUTE AUTO0.4NOMS HealthcareMonocytes/100 WBC (Bld)9.8 %1.7 - 12.0 %NOMS HealthcareNEUTROPHILS ABSOLUTE AUTO2.2NOMS HealthcareNeutrophils/100 WBC (Bld) 50.6 %43.0 - 75.0 %NOMS HealthcarePlatelet mean volume (Bld) [Entitic vol]9.5 fL 9.5 - 13.5 fLBarnes-Jewish West County HospitalTBH EO #0.1NOMS HealthcareTB [id number] Healthcare [facility] RBC5.45NOMS [facility] WBC4.3NOMS HealthcareCLINISYNCNINTEGRIS BAPTIST [facility] [place] HealthcareALL CBC WITH AUTO DIFFon 71-29-8800VCNPMFLHK ABSOLUTE NZMX7SQBALee's Summit Hospital Basophils/100 WBC (Bld)0.5 %0.2 - 2.0 %NOMS HealthcareEosinophils/100 WBC (Bld) 2.6 %0.9 - 7.0 %[facility] HospitalErythrocyte distribution width (RBC) [Ratio]12.2 %11.0 - 15.0 %NOM HealthcareHematocrit (Bld) [Volume fraction]47.7 %42.0 - 54.0 %[facility] HealthcareHemoglobin (Bld) [Mass/Vol]15.7 g/dL14.0 - 18.0 g/dLBarnes-Jewish West County HospitalIMMATURE GRANULOCYTES ABS AUTO0.01NOLee's Summit HospitalImmature granulocytes/100 WBC (Bld)0.2 %0.0 - 0.5 %[facility] HealthcareInterpretation and review of laboratory resultsAbnormalNOLee's Summit HospitalLYMPHOCYTES ABSOLUTE AUTO1.5 NOMEastern Missouri State HospitalLymphocytes/100 WBC (Bld)37 %20.5 - 60.0 %[facility] NorthH (RBC) [Entitic mass]28.9 pg25.9 - 34.0 pgNOGolden Valley Memorial HospitalHC (RBC) [Mass/Vol] 32.9 g/dL29.9 - 35.2 g/dLCox NorthV (RBC) [Entitic vol]87.8 fL80.0 - 94.0 fLNOPA HealthcareMONOCYTES ABSOLUTE AUTO0.3NOPA HealthcareMonocytes/100 WBC (Bld)7.7 %1.7 - 12.0 %NOMS HealthcareNEUTROPHILS ABSOLUTE AUTO2.2NOMS Healthcare Neutrophils/100 WBC (Bld)52 %43.0 - 75.0 %NOM HealthcarePlatelet mean volume (Bld) [Entitic vol]9.3 fLLow9.5 - 13.5 fLNOLee's Summit HospitalTBH EO #0.1NOMS [facility] [id number] [facility] RBC5.43NOMS [facility] WBC4.2NOMS HealthcareCLINISYNCNINTEGRIS BAP[facility] [place] HealthcareALL CBC WITH AUTO DIFFon 53-22-3893APFQVGUOR ABSOLUTE [id number] HealthcareBasophils/100 WBC (Bld)1 %0.2 - 2.0 %NOMS HealthcareEosinophils/100 WBC (Bld)2.9 %0.9 - 7.0 %[facility] HospitalErythrocyte distribution width (RBC) [Ratio]12.3 %11.0 - 15.0 %NOMEastern Missouri State HospitalHematocrit (Bld) [Volume fraction]49.9 %42.0 - 54.0 %[facility] HospitalHemoglobin (Bld) [Mass/Vol]16.5 g/dL14.0 - 18.0 g/dLBarnes-Jewish West County HospitalIMMATURE GRANULOCYTES ABS AUTO 0.01NOMS [facility] HospitalImmature granulocytes/100 WBC (Bld)0.2 %0.0 - 0.5 %[facility] HospitalLYMPHOCYTES ABSOLUTE AUTO1.3NOMS [facility] HospitalLymphocytes/100 WBC (Bld) 30.6 %20.5 - 60.0 %[facility] NorthH (RBC) [Entitic mass]29.2 pg25.9 - 34.0 pg [facility] NorthHC (RBC) [Mass/Vol]33.1 g/dL29.9 - 35.2 g/dLCox NorthV (RBC) [Entitic vol]88.3 fL80.0 - 94.0 fLBarnes-Jewish West County HospitalMONOCYTES ABSOLUTE AUTO 0.4NOMS HealthcareMonocytes/100 WBC (Bld)8.8 %1.7 - 12.0 %[facility] NEUTROPHILS ABSOLUTE AUTO2.4NOMS HealthcareNeutrophils/100 WBC (Bld)56.5 %43.0 - 75.0 %[facility] HospitalPlatelet mean volume (Bld) [Entitic vol]9.9 fL9.5 - 13.5 fL [facility] HospitalTB EO #0.1NOMS HealthcareTBH [id number] [facility] HospitalTB RBC5.65 NOMEastern Missouri State HospitalTB WBC4.2NOMS HealthcareCLINISYNCNINTEGRIS BAP[facility] [place] HealthcareALL CBC WITH AUTO DIFFon 98-76-7542VNJIIOWPB ABSOLUTE MOTY7FLAH HealthcareBasophils/100 WBC (Bld)0.6 %0.2 - 2.0 %NOMEastern Missouri State HospitalEosinophils/100 WBC (Bld)3.5 %0.9 - 7.0 % [facility] HospitalErythrocyte distribution width (RBC) [Ratio]12.3 %11.0 - 15.0 % NOMEastern Missouri State HospitalHematocrit (Bld) [Volume fraction]47.1 %42.0 - 54.0 %[facility] HospitalHemoglobin (Bld) [Mass/Vol]15.4 g/dL14.0 - 18.0 g/dLBarnes-[facility] Hospital IMMATURE GRANULOCYTES ABS AUTO0.01NOLee's Summit HospitalImmature granulocytes/100 WBC (Bld)0.2 %0.0 - 0.5 %[facility] HospitalLYMPHOCYTES ABSOLUTE AUTO1.5NOMS [facility] Lymphocytes/100 WBC (Bld)31.7 %20.5 - 60.0 %[facility] NorthH (RBC) [Entitic mass]28.9 pg25.9 - 34.0 pgNOGolden Valley Memorial HospitalHC (RBC) [Mass/Vol]32.7 g/dL29.9 - 35.2 g/dLCox NorthV (RBC) [Entitic vol]88.4 fL80.0 - 94.0 fLBarnes-Jewish West County HospitalMONOCYTES ABSOLUTE AUTO0.4NOLee's Summit HospitalMonocytes/100 WBC (Bld)8.6 % 1.7 - 12.0 %NOMEastern Missouri State HospitalNEUTROPHILS ABSOLUTE AUTO2.7NOMS [facility] Neutrophils/100 WBC (Bld)55.4 %43.0 - 75.0 %[facility] HospitalPlatelet mean volume (Bld) [Entitic vol]9.7 fL9.5 - 13.5 fLBarnes-Jewish West County HospitalTB EO #0.2NOMS [facility] TBH [id number] [facility] HospitalTB RBC5.33NOMS [facility] WBC4.8NOLee's Summit Hospital CLINISYNCNOPA HealthcareALL CBC WITH AUTO DIFFon 42-07-4262SFWISMBZU ABSOLUTE ZHEQ5MYTVLee's Summit HospitalBasophils/100 WBC (Bld)0.6 %0.2 - 2.0 %[facility] Eosinophils/100 WBC (Bld)3.2 %0.9 - 7.0 %[facility] HospitalErythrocyte distribution width (RBC) [Ratio]12.4 %11.0 - 15.0 %NOMEastern Missouri State HospitalHematocrit (Bld) [Volume fraction]47 %42.0 - 54.0 %[facility] HospitalHemoglobin (Bld) [Mass/Vol]15.8 g/dL 14.0 - 18.0 g/dLBarnes-Jewish West County HospitalIMMATURE GRANULOCYTES ABS AUTO0.01NOMS [facility] Immature granulocytes/100 WBC (Bld)0.2 %0.0 - 0.5 %[facility] HospitalInterpretation and review of laboratory resultsAbnormalNOLee's Summit HospitalLYMPHOCYTES ABSOLUTE AUTO1.1LowNOMS [facility] HospitalLymphocytes/100 WBC (Bld)22.8 %20.5 - 60.0 %[facility] NorthH (RBC) [Entitic mass]29.6 pg25.9 - 34.0 pgCox NorthHC (RBC) [Mass/Vol]33.6 g/dL29.9 - 35.2 g/dLCox NorthV (RBC) [Entitic vol]88 fL 80.0 - 94.0 fLBarnes-Jewish West County HospitalMONOCYTES ABSOLUTE AUTO0.4NOMS [facility] Monocytes/100 WBC (Bld)8 %1.7 - 12.0 %NOMEastern Missouri State HospitalNEUTROPHILS ABSOLUTE AUTO 3.3NOMS [facility] HospitalNeutrophils/100 WBC (Bld)65.2 %43.0 - 75.0 %[facility] Platelet mean volume (Bld) [Entitic vol]9.3 fLLow9.5 - 13.5 fLBarnes-Jewish West County HospitalTBH EO #0.2NOMS [facility] HospitalTB [id number] [facility] RBC5.34NOMS [facility] WBC 5NOLee's Summit HospitalCLINISYNCNSaint Francis Hospital & Health ServicesALL CBC WITH AUTO DIFFon 09-13-2024 BASOPHILS ABSOLUTE JWTF6VFKT HealthcareBasophils/100 WBC (Bld)0.6 %0.2 - 2.0 % NOMEastern Missouri State HospitalEosinophils/100 WBC (Bld)2.9 %0.9 - 7.0 %[facility] Erythrocyte distribution width (RBC) [Ratio]12.5 %11.0 - 15.0 %[facility] Hematocrit (Bld) [Volume fraction]47.1 %42.0 - 54.0 %[facility] HospitalHemoglobin (Bld) [Mass/Vol]15.2 g/dL14.0 - 18.0 g/dLBarnes-Jewish West County HospitalIMMATURE GRANULOCYTES ABS AUTO0.01NOLee's Summit HospitalImmature granulocytes/100 WBC (Bld)0.2 %0.0 - 0.5 % [facility] HospitalInterpretation and review of laboratory resultsAbnormalBarnes-Jewish West County HospitalLYMPHOCYTES ABSOLUTE AUTO1.6NOMS [facility] HospitalLymphocytes/100 WBC (Bld) 32.7 %20.5 - 60.0 %[facility] NorthH (RBC) [Entitic mass]28.5 pg25.9 - 34.0 pg [facility] NorthHC (RBC) [Mass/Vol]32.3 g/dL29.9 - 35.2 g/dLBarnes-Jewish West County HospitalMCV (RBC) [Entitic vol]88.4 fL80.0 - 94.0 fLBarnes-Jewish West County HospitalMONOCYTES ABSOLUTE AUTO 0.4NOMS [facility] HospitalMonocytes/100 WBC (Bld)8.5 %1.7 - 12.0 %[facility] NEUTROPHILS ABSOLUTE AUTO2.6NOLee's Summit HospitalNeutrophils/100 WBC (Bld)55.1 %43.0 - 75.0 %[facility] HospitalPlatelet mean volume (Bld) [Entitic vol]9.3 fLLow9.5 - 13.5 fLBarnes-Jewish West County HospitalTB EO #0.1NOMS [facility] HospitalTB [id number] Memorial Healthcare RBC5.33 [facility] HospitalTB WBC4.8NOLee's Summit HospitalCLINISYNCNOMS HealthcareNo Panel Informationon 79-79-5750Wrszxafgb Study observation (narrative)[facility] US.doppler Carotid arteries - bilateralon 10-94-0839L[address] [address] Ultrasound Report Signed Patient: GEORGE STYLES MR#: [id number] : 1970 Acct:[id number] Age/Sex: 54 / M ADM Date: 09/05/24 Loc: RAD Attending Dr: Zuly Bruno NP Ordering Physician: Zuly Bruno NP Date of Service: 09/05/24 Procedure(s): US carotid duplex BI Accession Number(s): [id number] cc: Zuly Bruno NP [place] [id number] Patient Name: GEORGE STYLES MRN: [facility]:[id number] date: 1970 Sex: M Assigned Patient Location: [facility] Current Patient Location: RAD Accession/Order Number: [id number] Exam Date: 09/05/2024 10:22 Report Date: 09/05/2024 11:00 At the request of: ZULY BRUNO Procedure: US carotid duplex BI EXAMINATION: [...] Signed By: 09/05/24 1103 DD/ 1100 TD/TT: Sales Market Leader:TBHRadiology, Radiologist, - 09/05/[address] [address] Ultrasound Report Signed Patient: GEORGE STYLES MR#: [id number] : 1970 Acct:[id number] Age/Sex: 54 / M ADM Date: 09/05/24 Loc: RAD Attending Dr: Zuly Bruno NP Ordering Physician: Zuly Bruno NP Date of Service: 09/05/24 Procedure(s): US carotid duplex BI Accession Number(s): [id number] cc: Zuly Bruno NP The [address] [address] Patient Name: GEORGE STYLES MRN: [facility]:[id number] date: 1970 Sex: M Assigned Patient Location: RAD Current Patient Location: RAD Accession/Order Number: [id number] Exam Date: 09/05/2024 10:22 Report Date: 09/05/2024 11:00 At the request of: ZULY BRUNO Procedure: US carotid duplex BI EXAMINATION: [...] Signed By: 09/05/24 1103 DD/ 1100 TD/TT: Sales Market Leader: PINO Corona.doppler Carotid arteries - bilateralOrdered By: Radiologist Radiology on 06-61-6752QTVV IEMO Work Phone: XR DEXA AXIAL SKELETONon [id number], [place] [address] XRay Report Signed Patient: GEORGE STYLES MR#: [id number] : 1970 Acct:[id number] Age/Sex: 54 / M ADM Date: 09/05/24 Loc: BRENNA Attending Dr: Zuly Bruno NP Ordering Physician: Zuly Bruno NP Date of Service: 09/05/24 Procedure(s): XR DEXA axial skeleton Accession Number(s): [id number] cc: Zuly Bruno NP [place] [address] Patient Name: GEORGE STYLES MRN: [facility]:[id number] date: 1970 Sex: M Assigned Patient Location: [facility] Current Patient Location: [facility] Accession/Order Number: [id number] Exam Date: 09/05/2024 10:30 Report Date: 09/05/2024 11:21 At the request of: ZULY BRUNO Procedure: XR DEXA axial skeleton EXAMINATION: [...] prevention and treatment of osteoporosis. Osteoporos Int. 2021;33(10):0853-4806. doi: 10.1007/n86581-382-03473-e. Epub 2021Mar 27. Erratum in: Osteoporos Int. 2021Jun 26;: PMID: 77825521; PMCID: [id number]. Electronically authenticated by: GIAN RODRIGUEZ Date: 09/05/2024 11:21 Dictated By: Gian Rodriguez M.D. Signed By: 09/05/24 1123 DD/ 1121 TD/TT: Sales Market Leader:TBHRadiology, Radiologist, - 09/05/2024 [place] [address] XRay Report Signed Patient: GEORGE STYLES MR#: [id number] : 1970 Acct:[id number] Age/Sex: 54 / M ADM Date: 09/05/24 Loc: RAD Attending Dr: Zuly Bruno NP Ordering Physician: Zuly Bruno NP Date of Service: 09/05/24 Procedure(s): XR DEXA axial skeleton Accession Number(s): [id number] cc: Zuly Bruno NP [place] [id number] Patient Name: GEORGE STYLES MRN: [facility]:[id number] date: 1970 Sex: M Assigned Patient Location: [facility] Current Patient Location: [facility] Accession/Order Number: [id number] Exam Date: 09/05/2024 10:30 Report Date: 09/05/2024 11:21 At the request of: ZULY BRUNO Procedure: XR DEXA axial skeleton EXAMINATION: [...] prevention and treatment of osteoporosis. Osteoporos Int. 2021;33(10):7933-8431. doi: 10.1007/h81212-025-11221-y. Epub 2021Mar 27. Erratum in: Osteoporos Int. 2021Jun 26;: PMID: 37805207; PMCID: [id number]. Electronically authenticated by: GIAN RODRIGUEZ Date: 09/05/2024 11:21 Dictated By: Gian Rodriguez M.D. Signed By: 09/05/24 1123 DD/ 1121 TD/TT: Sales Market Leader: PINO Roldan DEXA AXIAL SKELETONOrdered By: Radiologist Radiology on 04-15-4602YPYKBarnes-Jewish West County Hospital Work Phone: aLL CBC WITH AUTO DIFFon 76-23-3279EGHUIUXCU ABSOLUTE AUTO0.0NOMS HealthcareBasophils/100 WBC (Bld)0.6 %0.2 - 2.0 %NOM Healthcare Eosinophils/100 WBC (Bld)3.2 %0.9 - 7.0 %NOM HealthcareErythrocyte distribution width (RBC) [Ratio]12.4 %11.0 - 15.0 %NOMS HealthcareHematocrit (Bld) [Volume fraction]48.1 %42.0 - 54.0 %NOMS HealthcareHemoglobin (Bld) [Mass/Vol]15.8 g/dL 14.0 - 18.0 g/dLNOPA HealthcareIMMATURE GRANULOCYTES ABS AUTO0.01NOMS Healthcare Immature granulocytes/100 WBC (Bld)0.2 %0.0 - 0.5 %NOMS HealthcareLYMPHOCYTES ABSOLUTE AUTO1.4NOMS HealthcareLymphocytes/100 WBC (Bld)28.5 %20.5 - 60.0 %[facility]ox NorthH (RBC) [Entitic mass]28.8 pg25.9 - 34.0 pgCox NorthHC (RBC) [Mass/Vol]32.8 g/dL29.9 - 35.2 g/dLBarnes-Jewish West County HospitalMCV (RBC) [Entitic vol]87.8 fL 80.0 - 94.0 fLBarnes-Jewish West County HospitalMONOCYTES ABSOLUTE AUTO0.4[facility] Monocytes/100 WBC (Bld)8.6 %1.7 - 12.0 %[facility] HospitalNEUTROPHILS ABSOLUTE AUTO 2.9NOLee's Summit HospitalNeutrophils/100 WBC (Bld)58.9 %43.0 - 75.0 %[facility] Platelet mean volume (Bld) [Entitic vol]9.8 fL9.5 - 13.5 fLBarnes-Jewish West County HospitalTB EO #0.2NOMS [facility] HQI207BUYLCitizens Memorial Healthcare RBC5.48NOCitizens Memorial Healthcare WBC5.0 [facility] HospitalCLINISYNCNSaint Francis Hospital & Health ServicesALL CBC WITH AUTO DIFFon 08-15-2024 BASOPHILS ABSOLUTE AUTO0.0NOLee's Summit HospitalBasophils/100 WBC (Bld)0.7 %0.2 - 2.0 % [facility] HospitalEosinophils/100 WBC (Bld)2.7 %0.9 - 7.0 %[facility] Erythrocyte distribution width (RBC) [Ratio]12.4 %11.0 - 15.0 %[facility] Hematocrit (Bld) [Volume fraction]47.4 %42.0 - 54.0 %[facility] HospitalHemoglobin (Bld) [Mass/Vol]15.6 g/dL14.0 - 18.0 g/dLBarnes-Jewish West County HospitalIMMATURE GRANULOCYTES ABS AUTO0.01NOLee's Summit HospitalImmature granulocytes/100 WBC (Bld)0.2 %0.0 - 0.5 % [facility] HospitalLYMPHOCYTES ABSOLUTE AUTO1.3NOLee's Summit HospitalLymphocytes/100 WBC (Bld)29.6 %20.5 - 60.0 %[facility] NorthH (RBC) [Entitic mass]28.8 pg25.9 - 34.0 pgCox NorthHC (RBC) [Mass/Vol]32.9 g/dL29.9 - 35.2 g/dLNOPA HealthcareMCV (RBC) [Entitic vol]87.5 fL80.0 - 94.0 fLNOLee's Summit HospitalMONOCYTES ABSOLUTE AUTO0.4NOPA HealthcareMonocytes/100 WBC (Bld)8.1 %1.7 - 12.0 %NOM HealthcareNEUTROPHILS ABSOLUTE AUTO2.6NOMS HealthcareNeutrophils/100 WBC (Bld) 58.7 %43.0 - 75.0 %NOM HealthcarePlatelet mean volume (Bld) [Entitic vol]9.9 fL 9.5 - 13.5 fLBarnes-Jewish West County HospitalTBH EO #0.1NOMS [facility] HospitalTB DCS432GNNHLee's Summit Hospital TB RBC5.42NOMS [facility] WBC4.5NOLee's Summit HospitalCLINISYNCNSSM [facility] URINE T PROTEIN CREAT RATIOon 10-37-9558PNLTBPHBSR URINE EUKPZZ143.63 mg/dL20.00 - 300.00 mg/dLSANPETE VALLEY HOSPITAL HealthcareInterpretation and review of laboratory results AbnormalNOPA HealthcareProtein (U) [Mass/Vol]14.4 mg/dLHighNINF - 11.9 mg/dLBarnes-Jewish West County HospitalPROTEIN CREATININE RATIO URINE0.12NOLee's Summit HospitalCLINISYNFormerly Mc[facility] Center - DillonALL CBC WITH AUTO DIFFon 31-45-5308DARGFPLJD ABSOLUTE AUTO0.0NOMS [facility] HospitalBasophils/100 WBC (Bld)0.8 %0.2 - 2.0 %NOMEastern Missouri State HospitalEosinophils/100 WBC (Bld)1.8 %0.9 - 7.0 %[facility] HospitalErythrocyte distribution width (RBC) [Ratio]12.2 %11.0 - 15.0 %[facility] HospitalHematocrit (Bld) [Volume fraction]47.2 %42.0 - 54.0 %[facility] HospitalHemoglobin (Bld) [Mass/Vol]15.7 g/dL14.0 - 18.0 g/dLBarnes-Jewish West County HospitalIMMATURE GRANULOCYTES ABS AUTO0.01NOLee's Summit HospitalImmature granulocytes/100 WBC (Bld)0.2 %0.0 - 0.5 %NOM HealthcareLYMPHOCYTES ABSOLUTE AUTO1.5NOMS HealthcareLymphocytes/100 WBC (Bld)29.9 %20.5 - 60.0 %[facility]ox NorthH (RBC) [Entitic mass]29.1 pg25.9 - 34.0 pgCox NorthHC (RBC) [Mass/Vol]33.3 g/dL29.9 - 35.2 g/dLCox NorthV (RBC) [Entitic vol]87.4 fL 80.0 - 94.0 fLBarnes-Jewish West County HospitalMONOCYTES ABSOLUTE AUTO0.4[facility] Monocytes/100 WBC (Bld)8.8 %1.7 - 12.0 %[facility] HospitalNEUTROPHILS ABSOLUTE AUTO 2.9NOLee's Summit HospitalNeutrophils/100 WBC (Bld)58.5 %43.0 - 75.0 %[facility] Platelet mean volume (Bld) [Entitic vol]10.0 fL9.5 - 13.5 fLBarnes-Jewish West County HospitalTB EO #0.1NOMS [facility] [id number] Memorial Healthcare RBC5.40NOCitizens Memorial Healthcare WBC 4.9NOLee's Summit HospitalCLINISYNCNSSM [facility] URINE T PROTEIN CREAT RATIOon 04-56-1214GEXOVWVJIV URINE UPVYSA877.02 mg/dL20.00 - 300.00 mg/dLBarnes-[facility] Hospital Interpretation and review of laboratory resultsAbnormalBarnes-Jewish West County HospitalProtein (U) [Mass/Vol]13.8 mg/dLHighNINF - 11.9 mg/dLBarnes-Jewish West County HospitalPROTEIN CREATININE RATIO URINE0.10NOGundersen Lutheran Medical Center Abdomen WO and W contrast [place] 73-49-3903[place]ugWood[place] [address] Magnetic Resonance Report Signed Patient: GEORGE STYLES MR#: [id number] : 1970 Acct:[id number] Age/Sex: 54 / M ADM Date: 07/20/24 Loc: MRI Attending Dr: Bibi-Staff Physician Pena Ordering Physician: Anastasia Aquino M.D. Date of Service: 07/20/24 Procedure(s): MR abdomen wo/w con Accession Number(s): [id number] cc: Zuly Bruno NP; Anastasia Aquino M.D. [place] [address] Patient Name: GEORGE STYLES MRN: [id number] date: 1970 Sex: M Assigned Patient Location: MRI Current Patient Location: LAB Accession/Order Number: [id number] Exam Date: 07/20/2024 08:15 Report Date: 07/26/2024 [...] No enlargement or focal lesion. KIDNEYS: The lower [place] kidneys are severely atrophic. Right lower quadrant [...] M.D. Signed By: 07/26/24814 DD/ 2 TD/TT: Sales Market Leader:TBHRadiology, Radiologist, - 07/26/2024 [place] [address] Magnetic Resonance Report Signed Patient: GEORGE STYLES MR#: [id number] : 1970 Acct:[id number] Age/Sex: 54 / M ADM Date: 07/20/24 Loc: MRI Attending Dr: Non-Staff Physician Becky Ordering Physician: PhysicianAnastasia M.D. Date of Service: 07/20/24 Procedure(s): MR abdomen wo/w con Accession Number(s): [id number] cc: Zuly Bruno NP; PhysicianAnastasia M.D. [address] [address] Patient Name: GEORGE STYLES MRN: [facility]:[id number] date: 1970 Sex: M Assigned Patient Location: MRI Current Patient Location: LAB Accession/Order Number: [id number] Exam Date: 07/20/2024 08:15 Report Date: 07/26/2024 [...] No enlargement or focal lesion. KIDNEYS: The lower [place] kidneys are severely atrophic. Right lower quadrant [...] M.D. Signed By: 07/26/24814 DD/ 2 TD/TT: Sales Market Leader: [facility] HospitalRadiology Study observation (narrative)[facility] Abdomen WO and W contrast IVOrdered By: Radiologist Radiology on 94-02-3840NZQYBarnes-Jewish [facility] County Hospital Work Phone: [phone] 24-65-261067Ypqdsyynq echo performed on 05/18/2024: MD Cinda Batres MA Please tell him the echo was ok and showed a small residual fluid around the heart. This is significant improvement from before. Follow up as planned. Patient informed and he verbalized understanding.[facility] Community HospitalCA ECHO DOPPLER COMPLETEon 62-28-6943IkgWoods[place] [address] Cardiology Report Signed Patient: GEORGE STYLES MR#: [id number] : 1970 Acct:[id number] Age/Sex: 54 / M ADM Date: 05/18/24 Loc: C[facility] Attending Dr: MIGUEL CARDONA Ordering Physician: MIGUEL CARDONA Date of Service: 05/18/24 Procedure(s): CA echo doppler complete Accession Number(s): [id number] cc: Zuly Bruno RX SPECIALIST; MIGUEL CARDONA Patient Name: GEORGE STYLES MR#: [id number] : 1970 Exam Date: 05/18/2024 Ordering Doctor: DR MIGUEL CARDONA M.D. ECHOCARDIOGRAM REPORT PROCEDURE: CA ECHO DOPPLER [...] 2.94 cm Aortic Valve AoV Area (Peak Meliton): 3.94 cm2, 3.94 cm2 AoV Area (VTI): [...] 48.01 ml, 48.01 ml Dictated by: Miguel Cardona M.D. on 05/20/2024 at 18:03 Approved by: Miguel Cardona M.D. on 05/20/2024 at 18:07 Dictated By: MIGUEL CARDONA Signed By: (more content not included)...TBHRadiology, Radiologist, MD - 05/20/2024 [place] [address] Cardiology Report Signed Patient: GEORGE STYLES MR#: [id number] : 1970 Acct:[id number] Age/Sex: 54 / M ADM Date: 05/18/24 Loc: CARD Attending Dr: MIGUEL CARDONA Ordering Physician: MIGUEL CARDONA Date of Service: 05/18/24 Procedure(s): CA echo doppler complete Accession Number(s): [id number] cc: Zuly Bruno RX SPECIALIST; MIGUEL CARDONA Patient Name: GEORGE STYLES MR#: [id number] : 1970 Exam Date: 05/18/2024 Ordering Doctor: DR MIGUEL CARDONA M.D. ECHOCARDIOGRAM REPORT PROCEDURE: CA ECHO DOPPLER [...] 2.94 cm Aortic Valve AoV Area (Peak Meliton): 3.94 cm2, 3.94 cm2 AoV Area (VTI): [...] 48.01 ml, 48.01 ml Dictated by: Miguel Cardona M.D. on 05/20/2024 at 18:03 Approved by: Miguel Cardona M.D. on 05/20/2024 at 18:07 Dictated By: MIGUEL CARDONA Signed By: 05/20/241806 DD/ 06 TD/TT: Sales Market Leader: [facility] HOSPITALKatarzyna HealthcareRadiology Study observation (narrative)[facility] HospitalCA ECHO DOPPLER COMPLETEOrdered By: Radiologist Radiology on [phone] Work Phone: Office Visiton [phone]-up [id number] George Styles 1970 M Date Provider Department Center 05/13/2024 [facility] Family History Problem Relation Age of Onset Coronary artery disease Mother Coronary artery disease Father Family Status - Relation Status Age at Mother Father Level of Service:06517 RI OFFICE/OUTPATIENT ESTABLISHED LOW MDM 20 MIN Reason for Visit and Comments: Follow-up [850209] - Yearly follow upNormalUniversity of [facility] Health [facility] AllianceB- TYPE NATRIURETIC PEPTIDE (BRAIN)on [phone] and review of laboratory resultsNormalODetwiler Memorial HospitalNatriuretic peptide B (Bld) [Mass/Vol]72 pg/mL0 - 100 pg/mLOur Lady of Mercy Hospital - AndersonOSMercy Health Tiffin HospitalCHEM 6 (LYTES, BUN CREA)on 98-78-1732Yqctz gap [Moles/Vol]13 mmol/L7 - 17 mmol/[facility] CantonChloride [Moles/Vol]107 mmol/L98 - 108 mmol/[facility] CantonCO2 [Moles/Vol]25 mmol/L21 - 31 mmol/[facility] CantonCreatinine [Mass/Vol]1.23 mg/dL0.70 - 1.30 mg/dLOur Lady of [facility]cy [facility] eGFR, CKD-EPI, Male70- PINMercy Health Urbana HospitalComment on above:Reported eGFR is based on the CKD-EPI 2020 equation using creatinine, age, and sex. Potassium [Moles/Vol]4.2 mmol/L3.5 - 5.0 mmol/[facility] Campusodium [Moles/Vol]141 mmol/L135 - 145 mmol/[facility] CantonUrea nitrogen [Mass/Vol]17 mg/dL7 - 25 mg/dLOur Lady of Mercy Hospital - AndersonUrea nitrogen/Creatinine [Mass ratio]14 mg/mgMemorial Hospital Of Gardena CBC,PLATELETSon 24-41-1200Zjmjspfhjcq distribution width (RBC) [Ratio]14.2 %10.9 - 14.3 %[facility] - AndersonHematocrit (Bld) [Volume fraction]37.0 %Low 39.6 - 48.8 %[facility] AndersonHemoglobin (Bld) [Mass/Vol]12.0 g/dLLow 13.4 - 16.8 g/dLOur Lady of Mercy Hospital - AndersonInterpretation and review of laboratory resultsAbnoKettering Health DaytonH (RBC) [Entitic mass]28.6 pg26.1 - 33.3 pgOur Lady of Mercy Hospital - AndersonMCHC (RBC) [Mass/Vol]32.4 g/dL31.9 - 36.5 g/dL [facility] - AndersonMCV (RBC) [Entitic vol]88.1 fL79.0 - 94.5 [facility] HospitalPlatelet mean volume (Bld) [Entitic vol]10.4 fL8.7 - 12.3 [facility] HospitalPlatelets (Bld) [#/Vol]170 10*3/uL146 - 337 K/uLOur Lady of Mercy Hospital - AndersonRBC (Bld) [#/Vol]4.20 10*6/uLLowOur Lady of Mercy Hospital - AndersonWBC (Bld) [#/Vol]3.70 10*3/uLLow3.73 - 10.10 K/uLU [facility] at WayneCHEM 7 (LYTES,BUN,CREA,GLUC)on 90-20-3582Clarq gap [Moles/Vol]14 mmol/L7 - 17 mmol/LOSMercy Health Tiffin HospitalChloride [Moles/Vol]105 mmol/L98 - 108 mmol/[facility] CenterCO2 [Moles/Vol]25 mmol/L21 - 31 mmol/[facility] CenterCreatinine [Mass/Vol]1.32 mg/dLHigh0.70 - 1.30 mg/dLOur Lady of Mercy Hospital - AndersoneGFR, CKD-EPI, Male65- PINFODetwiler Memorial HospitalComment on above:Reported eGFR is based on the CKD-EPI 2020 equation using creatinine, age, and sex.Glucose [Mass/Vol]94 mg/dL70 - 99 mg/dLOur Lady of Mercy Hospital [facility] Anderson Osmolality Calc [Osmolality]296[facility] CenterPotassium [Moles/Vol]3.8 mmol/L3.5 - 5.0 mmol/[facility] Campusodium [Moles/Vol]140 mmol/L135 - 145 mmol/[facility] CantonUrea nitrogen [Mass/Vol]23 mg/dL7 - 25 mg/dLOur Lady of Mercy Hospital - AndersonUrea nitrogen/Creatinine [Mass ratio]17 mg/mgOur Lady of Mercy Hospital - AndersonGLUCOSE POCon 40-13-0292Fpugtvl [Mass/Vol]88 mg/dL70 - 99 mg/dLOur Lady of Mercy Hospital - AndersonPOC Sample TypeCAPGreen Cross HospitalTest performed at address of the patient encounter.[facility] CenterOSMercy Health Tiffin HospitalGlucose [Mass/Vol]191 mg/gANajk35 - 99 mg/dLOur Lady of Mercy Hospital - AndersonInterpretation and review of laboratory resultsAbnormalODetwiler Memorial HospitalPO Sample TypeTrinity Health System East CampusTest performed at address of the patient encounter.[facility] GardenaHEPATIC FUNCTION PANELon 64-33-3289Ivptryf [Mass/Vol]3.9 g/dL3.5 - 5.0 g/dLOur Lady of Mercy Hospital - AndersonALP [Catalytic activity/Vol]83 U/L32 - 126 U/[facility] CantonALT [Catalytic activity/Vol]9 U/LLow10 - 52 U/[facility] CENTERU [facility] CenterAST [Catalytic activity/Vol]17 U/L10 - 39 U/[facility] CantonBilirubin [Mass/Vol]1.6 mg/dLHighNINF - 1.5 mg/dLOSU [facility] Bilirubin.direct [Mass/Vol]0.4 mg/dLHighNINF - 0.3 mg/dLOur Lady of Mercy Hospital - AndersonProtein [Mass/Vol]6.6 g/dL6.4 - 8.3 g/dLOSU [facility] ITRACONAZOLE LEVELon 22-24-7979Yrwokufchbgxbomnkzn [Mass/Vol]7.6mcg/mLOur Lady of Mercy Hospital - AndersonComment on above: REFERENCE VALUE No therapeutic range established; activity and serum concentration are similar to parent drug. ADDITIONAL INFORMATION This test was developed and its performance characteristics determined by [facility] in a manner consistent with CLIA requirements. This test has not been cleared or approved by the U.S. Food and Drug Administration. Test Performed by: [facility] - [address] [address] Dependency Director: Rosendo Bose M.D. Ph.D.; CLIA# [id number] Itraconazole [Mass/Vol]6.0mcg/mLOSU [facility] Ohio Medical CenterComment on above: REFERENCE VALUE >0.5 (localized infection), >1.0 (systemic infection) [facility] CenterMAGNESIUMon 27-50-6791Pubtdepcbbelaj and review of laboratory resultsNormalOSU [facility] Medical CenterMagnesium [Mass/Vol]1.8 mg/dL 1.6 - 2.6 mg/dLOur Lady of Mercy Hospital - AndersonNo Panel Informationon 01-23-2024 Interpretation and review of laboratory resultsAbSt. Mary Regional Medical CenterTACROLIMUS LEVEL, TROUGH (PRE DRUG LEVEL)on 01-23-2024 Interpretation and review of laboratory resultsNoParkview Health Bryan Hospital Tacrolimus (Bld) [Mass/Vol]7.0 ng/mLBone Marrow Transplant: 4.0-12.0, Therapeutic: 5.0-15.0Our [facility] - AndersonMethod performed is a chemiluminescent microparticle immunoasssay on the [employer] Maintenance Equipment Operator i2000. The range is based on experience at [facility] and users should be aware that target concentrations vary widely depending on concomitant therapy, time post- transplant, and desired degree of immunosuppression.[facility] Of GardenaCARDIAC RHYTHM (SCANNED)on 15-91-2231BLWOur Lady of Mercy Hospital - AndersonCBC,PLATELETSon 02-15-0863Pzffmyamedd distribution width (RBC) [Ratio]14.1 %10.9 - 14.3 %[facility] - AndersonHematocrit (Bld) [Volume fraction]41.5 % 39.6 - 48.8 %[facility] AndersonHemoglobin (Bld) [Mass/Vol]13.3 g/dLLow 13.4 - 16.8 g/dLOur Lady of Mercy Hospital - AndersonInterpretation and review of laboratory resultsAbMercy Health St. Vincent Medical CenterH (RBC) [Entitic mass]27.8 pg26.1 - 33.3 pgOur Lady of Mercy Hospital - AndersonMCHC (RBC) [Mass/Vol]32.0 g/dL31.9 - 36.5 g/dL [facility] AndersonMCV (RBC) [Entitic vol]86.8 fL79.0 - 94.5 [facility] HospitalPlatelet mean volume (Bld) [Entitic vol]10.5 fL8.7 - 12.3 [facility] HospitalPlatelets (Bld) [#/Vol]186 10*3/uL146 - 337 K/uLOur Lady of Mercy Hospital - AndersonRBC (Bld) [#/Vol]4.78 10*6/uLOur Lady of Mercy Hospital - AndersonWBC (Bld) [#/Vol]3.74 10*3/uL3.73 - 10.10 K/uLMemorial Hospital Of GardenaCHEM 7 (LYTES,BUN,CREA,GLUC)on 20-77-8185Fdgou gap [Moles/Vol]13 mmol/L7 - 17 mmol/[facility] CantonChloride [Moles/Vol]109 mmol/LHigh98 - 108 mmol/[facility] CantonCO2 [Moles/Vol]23 mmol/L21 - 31 mmol/[facility] CantonCreatinine [Mass/Vol]1.10 mg/dL0.70 - 1.30 mg/dLOur Lady of Mercy Hospital - AndersoneGFR, CKD-EPI, Male81- PINMercy Health Urbana HospitalComment on above: Reported eGFR is based on the CKD-EPI 2020 equation using creatinine, age, and sex.Glucose [Mass/Vol]84 mg/dL70 - 99 mg/dLOur Lady of [facility] Interpretation and review of laboratory resultsAbnoParkview Health Bryan Hospital Osmolality Calc [Osmolality]295[facility] - AndersonPotassium [Moles/Vol]4.0 mmol/L3.5 - 5.0 mmol/[facility] Campusodium [Moles/Vol]141 mmol/L135 - 145 mmol/[facility] CantonUrea nitrogen [Mass/Vol]16 mg/dL7 - 25 mg/dLOur Lady of Mercy Hospital - AndersonUrea nitrogen/Creatinine [Mass ratio]15 mg/mgOur Lady of Mercy Hospital - AndersonMAGNESIUMon 21-73-7299Pkzklhvlkfrjnr and review of laboratory resultsNoParkview Health Bryan HospitalMagnesium [Mass/Vol]2.0 mg/dL 1.6 - 2.6 mg/dLOur Lady of Mercy Hospital - AndersonNo Panel Informationon 16-47-3563YXDOur Lady of Mercy Hospital - AndersonPT,INR,PTTon 20-73-4498zTNE Coag (PPP) [Time]29.2 sOSU [facility] CenterINR Coag (Bld) [Relative time]1.1 {INR}0.9 - 1.1Our [facility] - AndersonInterpretation and review of laboratory resultsAbnoParkview Health Bryan HospitalPT Coag (PPP) [Time]14.3 sHigSelect Medical Specialty Hospital - Southeast OhioTACROLIMUS LEVEL, TROUGH (PRE DRUG LEVEL)Ordered By: Sheree Jensen on 53-43-9171Pzaxvpbtbyvtcp and review of laboratory resultsNoParkview Health Bryan HospitalTacrolimus (Bld) [Mass/Vol]7.9 ng/mLBone Marrow Transplant: 4.0-12.0, Therapeutic: 5.0-15.0OSMercy Health Tiffin HospitalMethod performed is a chemiluminescent microparticle immunoasssay on the [employer] Maintenance Equipment Operator i2000. The range is based on experience at [facility] and users should be aware that target concentrations vary widely depending on concomitant therapy, time post- transplant, and desired degree of immunosuppression.[facility] at WayneTYPE AND SCREENon 01-48-3740TOV/RH(D) TYPEPositiveOSSt. Joseph's Wayne HospitalUS Unspecified body regionOrdered By: Unassigned Pacs on 95-70-2160VDAOur Lady of Mercy Hospital - Anderson Work Phone: [place] Unspecified body regionon 84-76-0353Xjfohuoqj Study observation (narrative)[facility] AndersonCBC,PLATELETSon 01-21-2024 Erythrocyte distribution width (RBC) [Ratio]14.0 %10.9 - 14.3 %[facility] AndersonHematocrit (Bld) [Volume fraction]39.4 %Low39.6 - 48.8 %[facility] AndersonHemoglobin (Bld) [Mass/Vol]12.7 g/dLLow13.4 - 16.8 g/dLOur Lady of Mercy Hospital - AndersonInterpretation and review of laboratory resultsAbMercy Health St. Vincent Medical CenterH (RBC) [Entitic mass]28.0 pg26.1 - 33.3 pgOur Lady of Mercy Hospital - AndersonMCHC (RBC) [Mass/Vol]32.2 g/dL31.9 - 36.5 g/dLOur Lady of Mercy Hospital - AndersonMCV (RBC) [Entitic vol]87.0 fL79.0 - 94.5 [facility] HospitalPlatelet mean volume (Bld) [Entitic vol]10.2 fL8.7 - 12.3 [facility] HospitalPlatelets (Bld) [#/Vol]157 10*3/uL146 - 337 K/[facility]ome[facility] Memorial HospitalRBC (Bld) [#/Vol] 4.53 10*6/[facility] Memorial HospitalWBC (Bld) [#/Vol]3.42 10*3/uLLow3.73 - 10.10 K/[facility] HospitalCHEM 7 (LYTES,BUN,CREA,GLUC)on 34-79-6297Momft gap [Moles/Vol]12 mmol/L7 - 17 mmol/[facility] CantonChloride [Moles/Vol]107 mmol/L98 - 108 mmol/[facility] CantonCO2 [Moles/Vol]26 mmol/L21 - 31 mmol/[facility] Creatinine [Mass/Vol]1.11 mg/dL0.70 - 1.30 mg/dLOur Lady of Mercy Hospital - AndersoneGFR, CKD-EPI, Male80- PINMercy Health Urbana HospitalComment on above:Reported eGFR is based on the CKD-EPI 2020 equation using creatinine, age, and sex.Glucose [Mass/Vol]93 mg/dL70 - 99 mg/dLOur Lady of Mercy Hospital - AndersonOsmolality Calc [Osmolality]295[facility] AndersonPotassium [Moles/Vol]3.9 mmol/L3.5 - 5.0 mmol/[facility] Campusodium [Moles/Vol]141 mmol/L135 - 145 mmol/[facility] CantonUrea nitrogen [Mass/Vol]15 mg/dL7 - 25 mg/dLOur Lady of Mercy Hospital - AndersonUrea nitrogen/Creatinine [Mass ratio]14 mg/mgOur Lady of Mercy Hospital - AndersonCardiac catheterization studyOrdered By: Kelvin Donohue on 11-83-2249Tglf surface area Derived from formula2.08 m2[facility] Work Phone: [facility] Work Phone: Cardiac catheterization studyon 18-63-7099Eeeim formatting from the original result was not [...] with fistula occlusion Kelvin Donohue MD, MPH Supervisor Laboratory Animal Facility of Internal Medicine. Section of Advanced Heart Failure and Transplantation Division of Cardiovascular Diseases [facility] [email or web address] OSMercy Health Tiffin HospitalMAGNESIUMon 30-61-6820Bwnzraqdpqmnru and review of laboratory resultsAbnoParkview Health Bryan HospitalMagnesium [Mass/Vol]1.5 mg/dL Low1.6 - 2.6 mg/dLOSMercy Health Tiffin HospitalNo Panel Informationon 17-05-2656TNWMercy Health Tiffin HospitalTACROLIMUS LEVEL, TROUGH (PRE DRUG LEVEL)on 01-21-2024 Interpretation and review of laboratory resultsNoParkview Health Bryan Hospital Tacrolimus (Bld) [Mass/Vol]7.2 ng/mLBone Marrow Transplant: 4.0-12.0, Therapeutic: 5.0-15.0OSMercy Health Tiffin HospitalMethod performed is a chemiluminescent microparticle immunoasssay on the [employer] Maintenance Equipment Operator i2000. The range is based on experience at [facility] and users should be aware that target concentrations vary widely depending on concomitant therapy, time post- transplant, and desired degree of immunosuppression.[facility] AndersonOSMercy Health Tiffin HospitalCBC,PLATELETSon 54-30-0212Pepofepkuhl distribution width (RBC) [Ratio]13.8 %10.9 - 14.3 %[facility] - AndersonHematocrit (Bld) [Volume fraction]38.9 %Low39.6 - 48.8 %[facility] AndersonHemoglobin (Bld) [Mass/Vol]12.5 g/dLLow13.4 - 16.8 g/dLOur Lady of Mercy Hospital - AndersonInterpretation and review of laboratory resultsAbnormBarberton Citizens HospitalH (RBC) [Entitic mass]28.0 pg26.1 - 33.3 pgOur Lady of Mercy Hospital - AndersonMCHC (RBC) [Mass/Vol]32.1 g/dL31.9 - 36.5 g/dLOur Lady of Mercy Hospital - AndersonMCV (RBC) [Entitic vol]87.2 fL79.0 - 94.5 [facility] HospitalPlatelet mean volume (Bld) [Entitic vol]10.2 fL8.7 - 12.3 [facility] HospitalPlatelets (Bld) [#/Vol]166 10*3/uL146 - 337 K/uLOur Lady of Mercy Hospital - AndersonRBC (Bld) [#/Vol]4.46 10*6/uLOur Lady of Mercy Hospital - AndersonWBC (Bld) [#/Vol]3.79 10*3/uL3.73 - 10.10 K/uL [facility] GardenaCHEM 7 (LYTES,BUN,CREA,GLUC)on 67-78-6799Kjreu gap [Moles/Vol]12 mmol/L7 - 17 mmol/[facility] Chloride [Moles/Vol]105 mmol/L98 - 108 mmol/[facility] CantonCO2 [Moles/Vol]28 mmol/L21 - 31 mmol/[facility] CantonCreatinine [Mass/Vol] 1.12 mg/dL0.70 - 1.30 mg/dLOur Lady of Mercy Hospital - AndersoneGFR, CKD-EPI, Male79- PINF [facility] - AndersonComment on above:Reported eGFR is based on the CKD-EPI 2020 equation using creatinine, age, and sex.Glucose [Mass/Vol]88 mg/dL70 - 99 mg/dLOur Lady of Mercy Hospital - AndersonOsmolality Calc [Osmolality]294[facility] CenterPotassium [Moles/Vol]3.8 mmol/L3.5 - 5.0 mmol/[facility] CENTERU [facility] Sodium [Moles/Vol]141 mmol/L135 - 145 mmol/LOSU [facility] CenterUrea nitrogen [Mass/Vol]15 mg/dL7 - 25 mg/dLOSMercy Health Tiffin HospitalUrea nitrogen/Creatinine [Mass ratio]13 mg/mgOur Lady of Mercy Hospital - AndersonCardiac catheterization studyon [id number] Lady of Mercy Hospital - AndersonRadiology Study observation (narrative)[facility] AndersonRadiology Study observation (narrative)[facility] - AndersonEBV BY PCR, QUANTITATIVE,BLOODOrdered By: Charlotte Jensen on 03-02-3558JSE DNA ESTELITA+probe (Unsp spec) [#/Vol][facility] Medical CenterInterpretation and review of laboratory resultsNormSt. John of God HospitalThis test was performed using a real time PCR assay. The dynamic range for this assay is 1000-5,000,000 IU/mL. A result <1000 IU/mL does not rule out the presence of EBV DNA in quantities below the sensitivity of this assay. This test was developed and its performance characteristics determined by [facility]. It has not been cleared or approved by the FDA. The laboratory is regulated under CLIA as qualified to perform high-complexity testing. This test is used for clinical purposes. It should not be regarded as investigational or for research.[facility] - AndersonOSMercy Health Tiffin HospitalHEPATIC FUNCTION PANELon 40-21-3211Ectcuic [Mass/Vol]3.7 g/dL3.5 - 5.0 g/dLOur Lady of Mercy Hospital - AndersonALP [Catalytic activity/Vol]73 U/L32 - 126 U/[facility]onALT [Catalytic activity/Vol]12 U/L10 - 52 U/[facility] CantonAST [Catalytic activity/Vol]19 U/L10 - 39 U/LOSU [facility] CenterBilirubin [Mass/Vol]2.1 mg/dLHighNINF - 1.5 mg/dLOSMercy Health Tiffin HospitalBilirubin.direct [Mass/Vol]0.5 mg/dLHighNINF - 0.3 mg/dLOSU [facility] CenterInterpretation and review of laboratory resultsAbOhioHealth Van Wert HospitalProtein [Mass/Vol]6.1 g/dLLow 6.4 - 8.3 g/dLOSMercy Health Tiffin HospitalMAGNESIUMon 40-63-5561Slvldafrsmzhon and review of laboratory resultsNoParkview Health Bryan HospitalMagnesium [Mass/Vol] 1.6 mg/dL1.6 - 2.6 mg/dLOSMercy Health Tiffin HospitalNo Panel Informationon 34-18-6278ADDMercy Health Tiffin HospitalPOCT CO-OXIMETRYon 78-16-9920Zojqiloexj (Bld) [Mass/Vol]12.8 g/dLLow13.4 - 16.8 g/dLOur Lady of Mercy Hospital - AndersonInterpretation and review of laboratory resultsAbOhioHealth Van Wert HospitalOxyhemoglobin69 %Low94 - 98 %[facility] AndersonOrdering physician notified. Test performed at address of the patient encounter.[facility] AndersonOSMercy Health Tiffin HospitalHemoglobin (Bld) [Mass/Vol]13.3 g/dLLow13.4 - 16.8 g/dLOur Lady of Mercy Hospital - AndersonInterpretation and review of laboratory resultsAbOhioHealth Van Wert HospitalOxyhemoglobin69 %Low94 - 98 %[facility] Ordering physician notified. Test performed at address of the patient encounter.[facility] GardenaPT,INR,PTTon 01-68-8573vWWQ Coag (PPP) [Time]30.6 sOSU [facility] Medical CenterINR Coag (Bld) [Relative time]1.2 {INR}High0.9 - 1.1[facility] - AndersonInterpretation and review of laboratory resultsAbOhioHealth Van Wert HospitalPT Coag (PPP) [Time]15.5 sHigSelect Medical Specialty Hospital - Southeast OhioTACROLIMUS LEVEL, TROUGH (PRE DRUG LEVEL)Ordered By: Yanira Marcum on 37-44-5855Xbsvbaydjnruop and review of laboratory resultsNormal [facility] - AndersonTacrolimus (Bld) [Mass/Vol]7.7 ng/mLBone Marrow Transplant: 4.0-12.0, Therapeutic: 5.0-15.0[facility] - AndersonMethod performed is a chemiluminescent microparticle immunoasssay on the [employer] Maintenance Equipment Operator i2000. The range is based on experience at [facility] and users should be aware that target concentrations vary widely depending on concomitant therapy, time post- transplant, and desired degree of immunosuppression.[facility] AndersonOSMercy Health Tiffin HospitalCBC,PLATELETSon 36-15-3107Rtwlsktdkkc distribution width (RBC) [Ratio]13.9 %10.9 - 14.3 %[facility] AndersonHematocrit (Bld) [Volume fraction]37.5 %Low39.6 - 48.8 %[facility] AndersonHemoglobin (Bld) [Mass/Vol]12.1 g/dLLow13.4 - 16.8 g/dLOur Lady of Mercy Hospital - AndersonInterpretation and review of laboratory resultsAbnormBarberton Citizens HospitalH (RBC) [Entitic mass]28.3 pg26.1 - 33.3 pgOur Lady of Mercy Hospital - AndersonMCHC (RBC) [Mass/Vol]32.3 g/dL31.9 - 36.5 g/dLOur Lady of Mercy Hospital - AndersonMCV (RBC) [Entitic vol]87.8 fL79.0 - 94.5 [facility] HospitalPlatelet mean volume (Bld) [Entitic vol]10.4 fL8.7 - 12.3 [facility] HospitalPlatelets (Bld) [#/Vol]163 10*3/uL146 - 337 K/uLU [facility] CenterRBC (Bld) [#/Vol]4.27 10*6/uLLowU [facility] Medical CenterWBC (Bld) [#/Vol]3.69 10*3/uLLow3.73 - 10.10 K/uLOSU [facility] CenterOSMercy Health Tiffin HospitalCHEM 7 (LYTES,BUN,CREA,GLUC)on 42-33-8730Cnecx gap [Moles/Vol]14 mmol/L7 - 17 mmol/[facility] CantonChloride [Moles/Vol]106 mmol/L98 - 108 mmol/[facility] CantonCO2 [Moles/Vol]24 mmol/L21 - 31 mmol/[facility] Creatinine [Mass/Vol]1.13 mg/dL0.70 - 1.30 mg/dLOur Lady of Mercy Hospital - AndersoneGFR, CKD-EPI, Male78- PINFOSU [facility] Medical CenterComment on above:Reported eGFR is based on the CKD-EPI 2020 equation using creatinine, age, and sex.Glucose [Mass/Vol]86 mg/dL70 - 99 mg/dLOur Lady of Mercy Hospital - AndersonOsmolality Calc [Osmolality]293OSMercy Health Tiffin HospitalPotassium [Moles/Vol]3.8 mmol/L3.5 - 5.0 mmol/[facility] Campusodium [Moles/Vol]140 mmol/L135 - 145 mmol/[facility] - CantonUrea nitrogen [Mass/Vol]16 mg/dL7 - 25 mg/dLOur Lady of Mercy Hospital - AndersonUrea nitrogen/Creatinine [Mass ratio]14 mg/mgOur Lady of Mercy Hospital - AndersonHISTOPLASMA AND BLASTOMYCES ANTIGEN, ENZYME IMMUNOASSAY, SERMon 01-19-2024 Histoplasma/Blastomyces Ag ResultNot detectedNot DetectedOur Lady of Mercy Hospital - AndersonComment on above:No antigen from Histoplasma or Blastomyces detected. False negative results may occur depending on extent of disease, and/or site of infection. Repeat testing on a new specimen if clinically indicated. Histoplasma/Blastomyces Ag ValueNot detectedng/mLOur Lady of [facility]cy Hospital [facility] Anderson Comment on above: ADDITIONAL INFORMATION This test was developed and its performance characteristics determined by [facility] in a manner consistent with CLIA requirements. This test has not been cleared or approved by the U.S. Food and Drug Administration. Test Performed by: [facility] [address] [place] [address] Dependency Director: Rosendo Bose M.D. Ph.D.; CLIA# [id number] [facility] - AndersonMAGNESIUMon 57-38-6716Ufkgpbhsxcdgsb and review of laboratory resultsNoParkview Health Bryan HospitalMagnesium [Mass/Vol]1.8 mg/dL 1.6 - 2.6 mg/dLOur Lady of Mercy Hospital - AndersonNo Panel Informationon [id number] Lady of Mercy Hospital - AndersonTACROLIMUS LEVEL, TROUGH (PRE DRUG LEVEL)Ordered By: Raymundo Mehta on 32-90-3866Llpyeyccgvjdru and review of laboratory resultsNoParkview Health Bryan HospitalTacrolimus (Bld) [Mass/Vol]6.8 ng/mLBone Marrow Transplant: 4.0-12.0, Therapeutic: 5.0-15.0[facility] - AndersonMethod performed is a chemiluminescent microparticle immunoasssay on the [employer] Maintenance Equipment Operator i2000. The range is based on experience at [facility] and users should be aware that target concentrations vary widely depending on concomitant therapy, time post- transplant, and desired degree of immunosuppression.[facility] GardenaUS AV fistulaOrdered By: Diana Reyes on 93-96-4247MJYOur Lady of Mercy Hospital - Anderson Work Phone: [place] AV fistulaon 93-87-6487Jfbxcpylz Study observation (narrative)[facility] AndersonAFP TUMOR MARKEROrdered By: Francisca Alaniz on 91-06-1747VJO.tumor marker [Mass/Vol]ng/mLNINF - 8.1 ng/mLOur Lady of Mercy Hospital - AndersonComment on above:This test was performed on the [employer] Immunoassay platform by [employer] which is a two-site sandwich chemiluminescent immunoassay. It is important to note that assays using different manufacturersand/or methods may not be comparable.Interpretation and review of laboratory resultsNoLos Angeles [facility] CenterCBC,PLATELETSon 01-18-2024 Erythrocyte distribution width (RBC) [Ratio]13.9 %10.9 - 14.3 %[facility] AndersonHematocrit (Bld) [Volume fraction]38.4 %Low39.6 - 48.8 %[facility] AndersonHemoglobin (Bld) [Mass/Vol]12.1 g/dLLow13.4 - 16.8 g/dLOur Lady of Mercy Hospital - AndersonInterpretation and review of laboratory resultsAbnormBarberton Citizens HospitalH (RBC) [Entitic mass]27.8 pg26.1 - 33.3 pgOur Lady of Mercy Hospital - AndersonMCHC (RBC) [Mass/Vol]31.5 g/dLLow31.9 - 36.5 g/dLOur Lady of Mercy [facility] MCV (RBC) [Entitic vol]88.3 fL79.0 - 94.5 [facility] HospitalPlatelet mean volume (Bld) [Entitic vol]10.4 fL8.7 - 12.3 [facility] Platelets (Bld) [#/Vol]183 10*3/uL146 - 337 K/[facility]ome[facility] Memorial HospitalRBC (Bld) [#/Vol]4.35 10*6/uLLowOur Lady of Mercy Hospital - AndersonWBC (Bld) [#/Vol]3.66 10*3/uLLow3.73 - 10.10 K/uLMemorial Hospital Of Gardena CHEM 7 (LYTES,BUN,CREA,GLUC)on 43-65-9831Kncma gap [Moles/Vol]11 mmol/L7 - 17 mmol/[facility] CantonChloride [Moles/Vol]108 mmol/L98 - 108 mmol/[facility] CantonCO2 [Moles/Vol]26 mmol/L21 - 31 mmol/[facility] - CantonCreatinine [Mass/Vol]1.00 mg/dL0.70 - 1.30 mg/dLOur Lady of [facility] eGFR, CKD-EPI, Male- PINMercy Health Urbana HospitalComment on above:Reported eGFR is based on the CKD-EPI 2020 equation using creatinine, age, and sex.Glucose [Mass/Vol]89 mg/dL70 - 99 mg/dLOur Lady of Mercy Hospital - AndersonOsmolality Calc [Osmolality]295[facility] CenterPotassium [Moles/Vol]3.9 mmol/L3.5 - 5.0 mmol/[facility] CENTERU [facility] Hospitalodium [Moles/Vol]141 mmol/L135 - 145 mmol/[facility] CantonUrea nitrogen [Mass/Vol]16 mg/dL7 - 25 mg/dLOur Lady of Mercy Hospital - AndersonUrea nitrogen/Creatinine [Mass ratio]16 mg/mgOur Lady of Mercy Hospital - AndersonCardiac echo study ProcedureOrdered By: Gian Carlos on 79-80-4264Qm ASC index1.63 cm/m2[facility] Work Phone: Ao peak vel1.46 m/[facility] Work Phone: [phone] SOV index1.56 cm/m2[facility] Work Phone: Ao STJ index1.25 cm/m2[facility] Work Phone: Ao VTI35.74 cmOSMercy Health Tiffin Hospital Work Phone: Ascending aorta3.39 cmOSMercy Health Tiffin Hospital Work Phone: AV LVOT peak [id number] Hospital Work Phone: AV mean pwsirjlz4nbPnGOFAultman Hospital Work Phone: AV peak [id number] [facility] of [facility] Work Phone: AV valve area3.09 cm2[facility] Work Phone: AV Velocity Ratio0.73OSMercy Health Tiffin Hospital Work Phone: AVA (continuity Vmax)3.01 cm2[facility] Work Phone: AVA (continuity VTI)3.09 cm2[facility] Work Phone: AVA index (continuity Vmax)1.45 m/[facility] Work Phone: AVA index (continuity VTI)1.49 cm2/m2[facility] Work Phone: Avg e' pk vel0.07 m/[facility] Work Phone: Avg E/e' ratio19.45OSMercy Health Tiffin Hospital Work Phone: Body surface area Derived from formula2.08 m2[facility] Work Phone: BP EF62 %[facility] Work Phone: DI (Vmax)0.73[facility] Work Phone: DI (VTI)0.74 m/2[facility] Work Phone: [phone] wave decelartion dhqb634.38msecOur [facility] of [facility] Work Phone: e' lateral pk vel0.0789 m/[facility] Work Phone: e' lateral pk vel0.08 m/[facility] Work Phone: e' septal pk vel0.0653 m/[facility] Work Phone: e' septal pk vel0.07 m/[facility] Work Phone: E/A ratio2.67[facility] Work Phone: E/e' lateral ratio17.62OSMercy Health Tiffin Hospital Work Phone: E/e' septal ratio21.29[facility] Work Phone: EF SP [id number] Lady of [facility] Work Phone: [phone] SP [id number] [facility] of [facility] Work Phone: [phone] %28 - 44 %[facility] Work Phone: IVC ostium2.30 cmOur [facility] of [facility] Work Phone: [phone] cmOur [facility] of [facility] Work Phone: [phone] AREA 2CH24.36 cm2[facility] Work Phone: LA area 4CH20.[address] Work Phone: [phone] ESV BP (MOD)64 mLOur Lady of [facility] Work Phone: [phone] ESV BP (MOD) index31 mL/m2[facility] Work Phone: LA ESV SP 2CH (MOD)76 [facility] Work Phone: LA ESV SP 4CH (MOD)53 [facility] Work Phone: LV EDV BP180 [facility] Work Phone: LV EDV SP [id number] [facility] Work Phone: LV EDV SP [id number] [facility] Work Phone: LV ESV BP69 [facility] Work Phone: LV ESV SP [id number] [facility] Work Phone: LV ESV SP [id number] [facility] Work Phone: LV pfyy941.73 gOSU [facility] Work Phone: LV Mass Koulo257.5 g/m2[facility] Work Phone: LV RWT0.42[facility] Work Phone: LV stroke volume BP (ml)111 [facility] Work Phone: LV stroke volume index BP53.37 mL/m2[facility] Work Phone: [phone] [facility] Work Phone: PPPON5.97 [facility] Work Phone: LVOT area4.15 cm2[facility] Work Phone: LVOT diameter2.30 [facility] Work Phone: LVOT peak vel1.06 m/[facility] Work Phone: LVOT peak VTI26.61 [facility] Work Phone: LVOT stroke gmpucv721 cm3[facility] Work Phone: LVOT stroke volume index53.13 ml/m2[facility] Work Phone: Mr max vel4.21 m/[facility] Work Phone: [phone] JDB805.50 [facility] Work Phone: MV mean txakdidi1jkQwUYXAultman Hospital Work Phone: MV peak [id number] [facility] of [facility] Work Phone: MV pk A vel0.52 m/[facility] Work Phone: MV pk E vel1.39 m/[facility] Work Phone: MV stenosis pressure 1/[address] [facility] Work Phone: MV valve area by continuity eq2.93 cm2[facility] Work Phone: [phone] valve area p 1/2 method3.76 cm2[facility] Work Phone: MV VTI37.70 [facility] Work Phone: [phone] (continuity VTI)2.92 cmOur Lady of [facility] Work Phone: [facility] AV VTI RATIO PRE STRESS0.74[facility] Work Phone: [facility] ECHO LV BIPLANE SYSTOLIC VOLUME INDEX33.17 mL/m2 OSMercy Health Tiffin Hospital Work Phone: [facility] ECHO LV BP DIASTOLIC VOLUME INDEX86.54 mL/m2[facility] Work Phone: [facility] ECHO MR PEAK UMONMQPB15.94mmHgOur [facility] of [facility] Work Phone: [phone] [facility] Work Phone: [phone] area 4CH (MOD)14.50 cm2[facility] Work Phone: RA vol index 4CH (MOD)18.27 mL/m2[facility] Work Phone: Right atrium volume 4 chamber method of disks38 mLOur [facility] of [facility] Work Phone: [phone] Area zazjhtinf91.20 cm2[facility] Work Phone: [phone] Area whdpmzuv31.30 cm2[facility] Work Phone: [phone] basal diam4.52 cmOur [facility] of [facility] Work Phone: RV Fractional area .8 %[facility] Work Phone: RV long diam8.96 cmOur [facility] of [facility] Work Phone: RV mid diam3.70 [facility] Work Phone: [phone] S'22.01 cm/sOSU [facility] Work Phone: RVOT peak kjbybdyj7uhGwKBZMercy Health Tiffin Hospital Work Phone: RVOT peak vel0.96 m/sOSU [facility] Work Phone: RVOT peak VTI20.86 cmOSU [facility] Work Phone: [phone] cmU [facility] Work Phone: STJ2.61 cmOur [facility] of [facility] Work Phone: Stroke Adarov664 cm/mLOSU [facility] Work Phone: Stroke volume [id number] [facility] Work Phone: [phone] cmOSU [facility] Work Phone: [facility] Work Phone: Cardiac echo study Procedureon 74-67-8764Fjbj Ventricle: Chamber size is normal. Increased wall [...] echocardiography study was performed. Imaging system used: ZYB. IndicationsIndications for study: shortness of breath.[facility] Study observation (narrative)[facility] CenterHEPATIC FUNCTION PANELon 99-18-6043Teowczq [Mass/Vol]3.5 g/dL3.5 - 5.0 g/dLOSMercy Health Tiffin HospitalALP [Catalytic activity/Vol]70 U/L32 - 126 U/[facility] CantonALT [Catalytic activity/Vol]8 U/LLow10 - 52 U/[facility] CantonAST [Catalytic activity/Vol]20 U/L10 - 39 U/[facility] CantonBilirubin [Mass/Vol]1.7 mg/dLHighNINF - 1.5 mg/dLOSMercy Health Tiffin HospitalBilirubin.direct [Mass/Vol]0.4 mg/dLHighNINF - 0.3 mg/dLOur Lady of Mercy Hospital - AndersonProtein [Mass/Vol]6.0 g/dLLow6.4 - 8.3 g/dLOur Lady of Mercy Hospital - AndersonMAGNESIUMon 07-97-2447Eoqysgbsg [Mass/Vol]1.5 mg/dLLow1.6 - 2.6 mg/dLOur Lady of Mercy Hospital - AndersonNo Panel Informationon 27-07-8184Webgccjpmyeqri and review of laboratory resultsAbParkview Community Hospital Medical CenterPT,INR,PTTon 90-83-1634rWED Coag (PPP) [Time]30.0 sOSU [facility] CenterINR Coag (Bld) [Relative time]1.1 {INR}0.9 - 1.1[facility] AndersonInterpretation and review of laboratory resultsAbnoParkview Health Bryan HospitalPT Coag (PPP) [Time]14.5 [facility] HospitalTS W/FT4 REFLEXon 13-89-3346Eyhotyfnrvjhtz and review of laboratory resultsNoMercy Health St. [facility] Qn2.660 m[IU]/LOSU [facility] at WayneCANDIDA AURIS SCREEN BY PCROrdered By: Mynor Alejandro on 36-12-2500Zkdyhsw auris Screen by PCRNot detectedNot DetectedOur Lady of Mercy Hospital - AndersonInterpretation and review of laboratory resultsNoParkview Health Bryan HospitalThis test was performed using a real-time PCR assay. This test was developed, and its performance characteristics determined by [facility] at [facility]. It has not been cleared or approved by the FDA. The laboratory is regulated under C [place] as qualified to perform high-complexity testing. This test is used for clinical purposes. It should not be regarded as investigational or for research. [facility] AndersonOSMercy Health Tiffin HospitalCBC,PLATELETSon 01-17-2024 Erythrocyte distribution width (RBC) [Ratio]14.0 %10.9 - 14.3 %[facility] AndersonHematocrit (Bld) [Volume fraction]37.2 %Low39.6 - 48.8 %[facility] AndersonHemoglobin (Bld) [Mass/Vol]12.0 g/dLLow13.4 - 16.8 g/dLOur Lady of Mercy Hospital - AndersonInterpretation and review of laboratory resultsAbnoParkview Health Bryan HospitalMCH (RBC) [Entitic mass]27.9 pg26.1 - 33.3 pgOur Lady of Mercy Hospital - AndersonMCHC (RBC) [Mass/Vol]32.3 g/dL31.9 - 36.5 g/dLOur Lady of Mercy Hospital - AndersonMCV (RBC) [Entitic vol]86.5 fL79.0 - 94.5 [facility] HospitalPlatelet mean volume (Bld) [Entitic vol]10.5 fL8.7 - 12.3 [facility] HospitalPlatelets (Bld) [#/Vol]159 10*3/uL146 - 337 K/uLOur Lady of Mercy Hospital - AndersonRBC (Bld) [#/Vol] 4.30 10*6/uLLowU [facility] Medical CenterWBC (Bld) [#/Vol]3.69 10*3/uLLow3.73 - 10.10 K/uLU [facility] WayneCHEM 7 (LYTES,BUN,CREA,GLUC)on 09-53-7515Qgktu gap [Moles/Vol]13 mmol/L7 - 17 mmol/[facility] CantonChloride [Moles/Vol]109 mmol/LHigh98 - 108 mmol/[facility] CantonCO2 [Moles/Vol]21 mmol/L21 - 31 mmol/[facility] CantonCreatinine [Mass/Vol]1.04 mg/dL0.70 - 1.30 mg/dLOur Lady of [facility] eGFR, CKD-EPI, Male86- PINFODetwiler Memorial HospitalComment on above:Reported eGFR is based on the CKD-EPI 2020 equation using creatinine, age, and sex. Glucose [Mass/Vol]82 mg/dL70 - 99 mg/dLOur Lady of Mercy Hospital - AndersonOsmolality Calc [Osmolality]292OSMercy Health Tiffin HospitalPotassium [Moles/Vol]4.4 mmol/L3.5 - 5.0 mmol/[facility] Campusodium [Moles/Vol]139 mmol/L135 - 145 mmol/[facility] CantonUrea nitrogen [Mass/Vol]17 mg/dL7 - 25 mg/dLOur Lady of Mercy Hospital - AndersonUrea nitrogen/Creatinine [Mass ratio]16 mg/mgOur Lady of Mercy Hospital - AndersonCT Abdomen and Pelvis WO contraston 22-37-4230QNZBODBUUI: 1. Since 08/31/2023, resolution of previously seen abdominal lymphadenopathy. 2. New mild to moderate pericardial effusion. 3. Moderate to large right pleural effusion with complete atelectasis of the visualized right lower lobe and most of the middle lobe. Trace left pleural effusion. 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 Right lower quadrant renal transplant without hydronephrosis. 2 mm nonobstructive renal transplant stone. Retroperitoneal/Vasculature: Previously described abdominal lymph nodes have decreased [...] Grade 1 retrolisthesis of L5 on S1.. 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 Right lower quadrant renal transplant without hydronephrosis. 2 mm nonobstructive renal transplant stone. Retroperitoneal/Vasculature: Previously described abdominal lymph nodes have decreased [...] the middle lobe. Trace left pleural effusion. U [facility] WayneRadiology Study observation (narrative)OSMercy Health Tiffin HospitalHEPATIC FUNCTION PANELon 52-70-0378Egwwtcm [Mass/Vol]3.5 g/dL3.5 - 5.0 g/dLOSMercy Health Tiffin HospitalALP [Catalytic activity/Vol]73 U/L32 - 126 U/[facility]onALT [Catalytic activity/Vol]7 U/LLow10 - 52 U/[facility]onAST [Catalytic activity/Vol]25 U/L10 - 39 U/[facility] CantonBilirubin [Mass/Vol]1.8 mg/dLHighNINF - 1.5 mg/dLOur Lady of Mercy Hospital - AndersonBilirubin.direct [Mass/Vol]0.3 mg/dLHighNINF - 0.3 mg/dLOur Lady of [facility]cy Hospital - AndersonProtein [Mass/Vol]6.0 g/dLLow 6.4 - 8.3 g/dLOur Lady of Mercy Hospital - AndersonMAGNESIUMon 45-61-5818Rmqmjztjowyxae and review of laboratory resultsNoParkview Health Bryan HospitalMagnesium [Mass/Vol] 1.7 mg/dL1.6 - 2.6 mg/dLOur Lady of Mercy Hospital - AndersonNo Panel Informationon 42-95-7757Asrxuehimdzguj and review of laboratory resultsAbnormSt. John of God HospitalOSMercy Health Tiffin HospitalPT,INR,PTTon 43-23-0192uCLJ Coag (PPP) [Time]29.9 sOSU [facility] Medical CenterINR Coag (Bld) [Relative time]1.1 {INR}0.9 - 1.1[facility] - AndersonInterpretation and review of laboratory results AbnormalOSMercy Health Tiffin HospitalPT Coag (PPP) [Time]14.5 [facility]odi HospitalB-TYPE NATRIURETIC PEPTIDE (BRAIN)on 82-39-8255Hpyqpyjmczquhd and review of laboratory resultsAbOhioHealth Van Wert HospitalNatriuretic peptide B (Bld) [Mass/Vol]212 pg/mLHigh0 - 100 pg/mL [facility] AndersonOSMercy Health Tiffin HospitalCALCIUMon 38-85-0083Mvmetbx [Mass/Vol]8.5 mg/dLLow8.6 - 10.5 mg/dLOur Lady of Mercy Hospital - AndersonCBC AND ELECTRONIC DIFFon 40-38-8232Kwjukvtca (Bld) [#/Vol]K/uL0.00 - 0.09 K/uLOSMercy Health Tiffin HospitalBasophils/100 WBC (Bld)0.6 %[facility] Differential cell count method Nom (Bld)Electronic DifferentialOur Lady of Mercy Hospital - AndersonEosinophils (Bld) [#/Vol]0.09 10*3/uL0.00 - 0.48 K/uLOur Lady of Mercy Hospital - AndersonEosinophils/100 WBC (Bld)2.5 %[facility] - AndersonErythrocyte distribution width (RBC) [Ratio]14.0 %10.9 - 14.3 %[facility] Hematocrit (Bld) [Volume fraction]37.4 %Low39.6 - 48.8 %[facility] AndersonHemoglobin (Bld) [Mass/Vol]12.1 g/dLLow13.4 - 16.8 g/dLOur Lady of Mercy Hospital - AndersonImmature granulocytes (Bld) [#/Vol]K/uLNINF - 0.07 K/uLOur Lady of Mercy Hospital - AndersonImmature granulocytes/100 WBC (Bld)0.3 %[facility] Interpretation and review of laboratory resultsAbnormSt. John of God Hospital Lymphocytes (Bld) [#/Vol]1.16 10*3/uL0.83 - 3.57 K/uLOur Lady of Mercy Hospital - Anderson Lymphocytes/100 WBC (Bld)32.0 %[facility] AndersonMCH (RBC) [Entitic mass] 28.4 pg26.1 - 33.3 pgOSU [facility] Medical CenterMCHC (RBC) [Mass/Vol]32.4 g/dL31.9 - 36.5 g/dLOur Lady of Mercy Hospital - AndersonMCV (RBC) [Entitic vol]87.8 fL79.0 - 94.5 [facility] HospitalMonocytes (Bld) [#/Vol]0.43 10*3/uL0.24 - 0.93 K/uL [facility] AndersonMonocytes/100 WBC (Bld)11.9 %[facility] Neutrophils (Bld) [#/Vol]1.91 10*3/uL1.57 - 6.19 K/[facility] Nucleated RBC/100 WBC (Bld) [Ratio]0.0 %[facility] Medical CenterPlatelet mean volume (Bld) [Entitic vol]10.1 fL8.7 - 12.3 [facility] Platelets (Bld) [#/Vol]155 10*3/uL146 - 337 K/uLOur Lady of Mercy Hospital - AndersonRBC (Bld) [#/Vol]4.26 10*6/uLLowOhioHealth Dublin Methodist Hospitalegmented neutrophils/100 WBC (Bld)52.7 %[facility] AndersonWBC (Bld) [#/Vol]3.62 10*3/uLLow3.73 - 10.10 K/uLMemorial Hospital Of GardenaCHEM 7 (LYTES,BUN,CREA,GLUC)on 32-24-6493Yrhzm gap [Moles/Vol]11 mmol/L7 - 17 mmol/[facility] CantonChloride [Moles/Vol]108 mmol/L98 - 108 mmol/[facility] CantonCO2 [Moles/Vol]24 mmol/L21 - 31 mmol/[facility] Creatinine [Mass/Vol]1.04 mg/dL0.70 - 1.30 mg/dLOur Lady of Mercy Hospital - AndersoneGFR, CKD-EPI, Male86- [facility] NorthComment on above:Reported eGFR is based on the CKD-EPI 2020 equation using creatinine, age, and sex.Glucose [Mass/Vol]95 mg/dL70 - 99 mg/dLOur Lady of Mercy Hospital - AndersonOsmolality Calc [Osmolality]293OSMercy Health Tiffin HospitalPotassium [Moles/Vol]4.0 mmol/L3.5 - 5.0 mmol/LOSU [facility] Hospitalodium [Moles/Vol]139 mmol/L135 - 145 mmol/L[facility] CenterUrea nitrogen [Mass/Vol]19 mg/dL7 - 25 mg/dLOSU [facility] Medical CenterUrea nitrogen/Creatinine [Mass ratio]18 mg/mgOSMercy Health Tiffin HospitalD-DIMER,QUANTITATIVEOrdered By: Shaji Kelly on 86-88-0384Qnqlak D-dimer FEU (PPP) [Mass/Vol]0.67HighNINFOSU Southern Ohio Medical CenterComment on above:The D- Dimer assay is intended for use in conjuction with a clinical pretest probability (PTP) assessment model to exclude pulmonary embolism (PE) and as an aid in the diagnosis of Deep Vein Thrombosis (DVT) in outpatients suspected of PE or DVT. For the assay in use at [facility] ([facility]), a cutoff of <0.50 mcg/mL has a Negative Predictive Value of 99.7% for exclusion of DVT in low and moderate PTP patients.Interpretation and review of laboratory resultsAbnormalOSU Southern [facility] Medical CenterOSU [facility] CenterHEPATIC FUNCTION PANELon 12-55-5149Bxibcro [Mass/Vol]3.7 g/dL3.5 - 5.0 g/dLOur Lady of Mercy Hospital - AndersonALP [Catalytic activity/Vol]70 U/L32 - 126 U/[facility]onALT [Catalytic activity/Vol]8 U/LLow10 - 52 U/[facility]onAST [Catalytic activity/Vol]21 U/L10 - 39 U/[facility] CantonBilirubin [Mass/Vol]1.9 mg/dLHighNINF - 1.5 mg/dLOur Lady of [facility] Bilirubin.direct [Mass/Vol]0.4 mg/dLHighNINF - 0.3 mg/dLOur Lady of Mercy Hospital - AndersonProtein [Mass/Vol]6.1 g/dLLow6.4 - 8.3 g/dLOur Lady of [facility] MAGNESIUMon 46-93-1452Pybjohebc [Mass/Vol]1.7 mg/dL1.6 - 2.6 mg/dLOur Lady of Mercy Hospital - AndersonNo Panel Informationon 77-19-4268Dtvovemtfzvyhi and review of laboratory resultsAbOhioHealth Van Wert HospitalInterpretation and review of laboratory resultsNoLos Angeles General Medical Center PHOSPHATE, INORGANICon 75-19-2151Wgtqaxlkp [Mass/Vol]4.1 mg/dL2.2 - 4.6 mg/dLOur Lady of Mercy Hospital - AndersonPT,INR,PTTon 07-82-9387mUIN Coag (PPP) [Time]29.6 sOSMercy Health Tiffin HospitalINR Coag (Bld) [Relative time]1.2 {INR}High0.9 - 1.1[facility] - AndersonInterpretation and review of laboratory resultsAbOhioHealth Van Wert HospitalPT Coag (PPP) [Time]14.9 sHigSelect Medical Specialty Hospital - Southeast OhioTACROLIMUS LEVEL, TROUGH (PRE DRUG LEVEL)Ordered By: Jimy Castillo on 22-67-7662Qdelynhpuimbjc and review of laboratory resultsNoParkview Health Bryan HospitalTacrolimus (Bld) [Mass/Vol]5.7 ng/mLBone Marrow Transplant: 4.0-12.0, Therapeutic: 5.0-15.0[facility] - AndersonMethod performed is a chemiluminescent microparticle immunoasssay on the [employer] i2000. The range is based on experience at [facility] and users should be aware that target concentrations vary widely depending on concomitant therapy, time post- transplant, and desired degree of immunosuppression.[facility] CenterOSU [facility] CenterUS.doppler Abdominal vesselson [id number]: 1. Patent liver transplant vasculature. 2. Liver transplant is mildly heterogeneous in echotexture with surface nodularity, correlate clinically for any evidence of cirrhosis. Indeterminate left lobe subcapsular hyperechoic foci. If clinically indicated, these could be further evaluated with a liver protocol MRI. 3. At least moderate right pleural effusion. Trace right upper quadrant ascites. RADIOLOGYEXAM: US ABDOMEN LIVER DOPPLER, 01/16/2024 07:12 AM [...] pleural effusion. Trace right upper quadrant ascites. Iona Jewell MD - 01/16/2024 EXAM: US ABDOMEN LIVER [...] pleural effusion. Trace right upper quadrant ascites. er[facility] Tiffin HospitalRadiology Study observation (narrative)[facility] - AndersonUS.doppler Abdominal vesselsOrdered By: Iona Duran on 05-65-2661QEMOur Lady of Mercy Hospital - Anderson Work Phone: XR Chest PA and Lateralon [id number]: Moderate right pleural effusion. RADIOLOGYEXAM: XR CHEST PA AND LATERAL 2 VIEWS, 01/16/2024 12:34 PM COMPARISON: September 04, 2023 CLINICAL INDICATIONS: evaluate R pleural effusion and opacity RELEVANT CLINICAL HISTORY: FINDINGS: (Adequate technique) Implanted Devices: None Lungs: Clear, without mass, interstitial disease, or consolidation. Pleural Spaces: Moderate right effusion. No pneumothorax. Mediastinum and Susan: Normal Cardiac silhouette and great vessels: Cardiomegaly. Unremarkable aorta. Chest Wall: Normal RADIOLOGYWright, Daisha Montes MD - 01/16/2024 EXAM: XR CHEST PA AND [...] Normal IMPRESSION IMPRESSION: Moderate right pleural effusion. [facility]iffin HospitalRadiology Study observation (narrative)[facility] - AndersonXR Chest PA and LateralOrdered By: Daisha Patterson on 76-66-3393HUTMercy Health Tiffin Hospital Work Phone: all CBC WITH AUTO DIFFon 40-70-7297IEXQQIQAW ABSOLUTE AUTO0.0NOMS HealthcareBasophils/100 WBC (Bld)0.5 %0.2 - 2.0 %[facility] Eosinophils/100 WBC (Bld)2.8 %0.9 - 7.0 %NOMS HealthcareErythrocyte distribution width (RBC) [Ratio]13.8 %11.0 - 15.0 %NOMS HealthcareHematocrit (Bld) [Volume fraction]43.7 %42.0 - 54.0 %NOMS HealthcareHemoglobin (Bld) [Mass/Vol]14.0 g/dL 14.0 - 18.0 g/dLNOPA HealthcareIMMATURE GRANULOCYTES ABS AUTO0.01[facility] Immature granulocytes/100 WBC (Bld)0.3 %0.0 - 0.5 %NOMS HealthcareLYMPHOCYTES ABSOLUTE AUTO1.5NOMS HealthcareLymphocytes/100 WBC (Bld)37.5 %20.5 - 60.0 %NOMEastern Missouri State HospitalMCH (RBC) [Entitic mass]28.4 pg25.9 - 34.0 pgNOGolden Valley Memorial HospitalHC (RBC) [Mass/Vol]32.0 g/dL29.9 - 35.2 g/dLNOLee's Summit HospitalMCV (RBC) [Entitic vol]88.6 fL 80.0 - 94.0 fLNOPA HealthcareMONOCYTES ABSOLUTE AUTO0.5NOMS Healthcare Monocytes/100 WBC (Bld)11.9 %1.7 - 12.0 %NOMS HealthcareNEUTROPHILS ABSOLUTE AUTO1.9NOMS HealthcareNeutrophils/100 WBC (Bld)47.0 %43.0 - 75.0 %NOMS HealthcarePlatelet mean volume (Bld) [Entitic vol]10.3 fL9.5 - 13.5 fLNOMS HealthcareTBH EO #0.1NOMS HealthcareTB [id number] HealthcareTB RBC4.93NOMS HealthcareTB WBC4.0NOMS HealthcareCLINISYNCNOMS HealthcareALL CBC WITH AUTO DIFFon 95-37-3694HLNOFYHZF ABSOLUTE AUTO0.0NOMS HealthcareBasophils/100 WBC (Bld)0.5 %0.2 - 2.0 %NOMS HealthcareEosinophils/100 WBC (Bld)2.6 %0.9 - 7.0 % NOMEastern Missouri State HospitalErythrocyte distribution width (RBC) [Ratio]13.5 %11.0 - 15.0 % NOMS HealthcareHematocrit (Bld) [Volume fraction]43.8 %42.0 - 54.0 %NOMEastern Missouri State HospitalHemoglobin (Bld) [Mass/Vol]14.0 g/dL14.0 - 18.0 g/dLBarn[facility] IMMATURE GRANULOCYTES ABS AUTO0.00NOLee's Summit HospitalImmature granulocytes/100 WBC (Bld)0.0 %0.0 - 0.5 %[facility] HealthcareInterpretation and review of laboratory resultsAbnormalNOLee's Summit HospitalLYMPHOCYTES ABSOLUTE AUTO1.8NOMS [facility] Lymphocytes/100 WBC (Bld)45.2 %20.5 - 60.0 %[facility] NorthH (RBC) [Entitic mass]27.9 pg25.9 - 34.0 pgNOLee's Summit HospitalMCHC (RBC) [Mass/Vol]32.0 g/dL29.9 - 35.2 g/dLBarnes-Jewish West County HospitalMCV (RBC) [Entitic vol]87.4 fL80.0 - 94.0 fLNOLee's Summit HospitalMONOCYTES ABSOLUTE AUTO0.4NOMS HealthcareMonocytes/100 WBC (Bld)9.6 % 1.7 - 12.0 %NOMEastern Missouri State HospitalNEUTROPHILS ABSOLUTE AUTO1.6NOMS [facility] Neutrophils/100 WBC (Bld)42.1 %Low43.0 - 75.0 %[facility] HospitalPlatelet mean volume (Bld) [Entitic vol]9.8 fL9.5 - 13.5 fLNOLee's Summit HospitalTBH EO #0.1NOMS HealthcareTBH [id number] [facility] HospitalTB RBC5.01NOMS [facility] HospitalTB WBC3.9LowNOLee's Summit HospitalCLINISYNCNOMS [facility] HospitalMR HEAD/BRAIN WO CONon 76-51-2661[address] [address] Magnetic Resonance Report Signed Patient: GEORGE STYLES MR#: [id number] : 1970 Acct:[id number] Age/Sex: 53 / M ADM Date: 11/10/23 Loc: MRI Attending Dr: CAESAR TEIXEIRA Ordering Physician: CAESAR TEIXEIRA Date of Service: 11/10/23 Procedure(s): MR head/brain wo con Accession Number(s): [id number] cc: Zuly Bruno NP; CAESAR TEIXEIRA [place] [address] Patient Name: GEORGE STYLES MRN: [facility]:[id number] date: 1970 Sex: M Assigned Patient Location: MRI Current Patient Location: MRI Accession/Order Number: [id number] Exam Date: 11/10/2023 13:00 Report Date: 11/10/2023 [...] GARIBAY Date: 11/10/2023 14:58 Dictated By: ORESTES GAIRBAY M.D. Signed By: 11/10/23 1504 DD/ 1458 TD/TT: Sales Market Leader:FARHADHRadiology, Radiologist, - 11/10/2023 [place] [address] Magnetic Resonance Report Signed Patient: GEORGE STYLES#: [id number] : 1970 Acct:[id number] Age/Sex: 53 / M ADM Date: 11/10/23 Loc: MRI Attending Dr: CAESAR TEIXEIRA Ordering Physician: CAESAR TEIXEIRA Date of Service: 11/10/23 Procedure(s): MR head/brain wo con Accession Number(s): [id number] cc: Zuly Bruno NP; CAESAR TEIXEIRA [place] [id number] Patient Name: GEORGE STYLES MRN: [id number] date: 1970 Sex: M Assigned Patient Location: MRI Current Patient Location: MRI Accession/Order Number: [id number] Exam Date: 11/10/2023 13:00 Report Date: 11/10/2023 [...] By: ORESTES GARIBAY M.D. Signed By: 11/10/23 1500 DD/ 5888 TD/TT: Sales Market Leader: PINO HealthcareRadiology Study observation (narrative)[facility] HEAD/BRAIN WO CONOrdered By: Radiologist Radiology on 58-03-2448IUWC IEMO Work Phone: cHEM 7 (LYTES,BUN,CREA,GLUC)on 42-49-3288Lrlvm gap [Moles/Vol]13 mmol/L7 - 17 mmol/[facility] - CantonChloride [Moles/Vol] 111 mmol/LHigh98 - 108 mmol/[facility] CantonCO2 [Moles/Vol]20 mmol/L Low21 - 31 mmol/[facility] CantonCreatinine [Mass/Vol]1.13 mg/dL0.70 - 1.30 mg/dLOur Lady of Mercy Hospital - AndersoneGFR, CKD-EPI, Male78- PINFODetwiler Memorial HospitalGlucose [Mass/Vol]109 mg/kCEsef09 - 99 mg/dLOur Lady of Mercy Hospital - Anderson Interpretation and review of laboratory resultsAbOhioHealth Van Wert Hospital Osmolality Calc [Osmolality]295[facility] CenterPotassium [Moles/Vol]4.3 mmol/L3.5 - 5.0 mmol/[facility] Campusodium [Moles/Vol]140 mmol/L135 - 145 mmol/[facility] CantonUrea nitrogen [Mass/Vol]16 mg/dL7 - 25 mg/dLOur Lady of Mercy Hospital - AndersonUrea nitrogen/Creatinine [Mass ratio]14 mg/mgOur Lady of Mercy Hospital - AndersonGLUCOSE POCon 29-98-3837Llxokjw [Mass/Vol]108 mg/qBJlxv84 - 99 mg/dLOur Lady of Mercy Hospital - AndersonInterpretation and review of laboratory resultsAbnoParkview Health Bryan HospitalPOC Sample TypeCAPBLOSU [facility] Medical CenterOSMercy Health Tiffin HospitalOSMercy Health Tiffin HospitalLegionella sp identified Org specific cx Nom (Unsp spec)on 54-85-9829Pifzrpxn identified Cx Nom (Unsp spec)NO GROWTH DAY 7 OF 7OSU [facility] MAGNESIUMon 34-77-1838Yclosvyglvfhls and review of laboratory resultsNoParkview Health Bryan HospitalMagnesium [Mass/Vol]1.6 mg/dL1.6 - 2.6 mg/dLOur Lady of Mercy Hospital - AndersonNo Panel Informationon 43-81-1150JBIOur Lady of Mercy Hospital - Anderson TACROLIMUS LEVEL, TROUGH (PRE DRUG LEVEL)on 62-92-3452Pdyaighkwogpco and review of laboratory resultsNoParkview Health Bryan HospitalTacrolimus (Bld) [Mass/Vol] 11.5 ng/mLOur Lady of Mercy Hospital - AndersonOSMercy Health Tiffin HospitalOSMercy Health Tiffin HospitalCBC,PLATELETSon 65-55-8595Fjfiqaqjwcm distribution width (RBC) [Ratio]13.9 %10.9 - 14.3 %[facility] - AndersonHematocrit (Bld) [Volume fraction]40.0 % 39.6 - 48.8 %[facility] - AndersonHemoglobin (Bld) [Mass/Vol]12.7 g/dLLow 13.4 - 16.8 g/dLOur Lady of Mercy Hospital - AndersonInterpretation and review of laboratory resultsAbnoKettering Health DaytonH (RBC) [Entitic mass]27.3 pg26.1 - 33.3 pgOur Lady of Mercy Hospital - AndersonMCHC (RBC) [Mass/Vol]31.8 g/dLLow31.9 - 36.5 g/dLOur Lady of Mercy Hospital - AndersonMCV (RBC) [Entitic vol]86.0 fL79.0 - 94.5 fLODetwiler Memorial HospitalPlatelet mean volume (Bld) [Entitic vol]9.5 fL8.7 - 12.3 fL [facility] - AndersonPlatelets (Bld) [#/Vol]225 10*3/uL146 - 337 K/[facility]ome[facility] Memorial HospitalRBC (Bld) [#/Vol]4.65 10*6/uLOur Lady of Mercy Hospital - AndersonWBC (Bld) [#/Vol]6.52 10*3/uL3.73 - 10.10 K/[facility] HospitalCHEM 7 (LYTES,BUN,CREA,GLUC)on 82-48-4407Atoow gap [Moles/Vol]13 mmol/L7 - 17 mmol/[facility] CantonChloride [Moles/Vol]111 mmol/LHigh98 - 108 mmol/[facility] CantonCO2 [Moles/Vol]20 mmol/LLow21 - 31 mmol/L [facility] CenterCreatinine [Mass/Vol]1.27 mg/dL0.70 - 1.30 mg/dLU [facility] Medical CentereGFR, CKD-EPI, Male68- PINFODetwiler Memorial HospitalGlucose [Mass/Vol]100 mg/cXVncg20 - 99 mg/dLOSMercy Health Tiffin HospitalOsmolality Calc [Osmolality]293[facility] CenterPotassium [Moles/Vol]4.4 mmol/L3.5 - 5.0 mmol/[facility] Campusodium [Moles/Vol]140 mmol/L135 - 145 mmol/[facility] CantonUrea nitrogen [Mass/Vol]12 mg/dL7 - 25 mg/dLOSMercy Health Tiffin HospitalUrea nitrogen/Creatinine [Mass ratio]9 mg/mgOur Lady of Mercy Hospital - AndersonHEPATIC FUNCTION PANELon 61-80-2910Fepmekd [Mass/Vol]3.3 g/dLLow3.5 - 5.0 g/dLOur Lady of Mercy Hospital - AndersonALP [Catalytic activity/Vol]143 U/LHigh32 - 126 U/L [facility] CenterALT [Catalytic activity/Vol]28 U/L10 - 52 U/[facility] CantonAST [Catalytic activity/Vol]29 U/L10 - 39 U/[facility] CantonBilirubin [Mass/Vol]0.9 mg/dLNINF - 1.5 mg/dLOur Lady of [facility] Anderson Bilirubin.direct [Mass/Vol]0.2 mg/dLNINF - 0.3 mg/dLOur [facility] of [facility] Protein [Mass/Vol]6.8 g/dL6.4 - 8.3 g/dLOur Lady of Mercy Hospital - AndersonMAGNESIUMon 99-81-4675Fgoxgsflruvqck and review of laboratory resultsNoParkview Health Bryan HospitalMagnesium [Mass/Vol]1.9 mg/dL1.6 - 2.6 mg/dLOSMercy Health Tiffin HospitalNo Panel Informationon 62-66-8576Hrbvppjozggnet and review of laboratory resultsAbnormalOEssex County HospitalTACROLIMUS LEVEL, TROUGH (PRE DRUG LEVEL)Ordered By: Jimy Castillo on 09-10-2023 Interpretation and review of laboratory resultsNoParkview Health Bryan Hospital Tacrolimus (Bld) [Mass/Vol]11.8 ng/mLPSE&G Children's Specialized HospitalCHEM 7 (LYTES,BUN,CREA,GLUC)on 43-55-6433Xktgv gap [Moles/Vol]14 mmol/L7 - 17 mmol/[facility] CantonChloride [Moles/Vol]113 mmol/LHigh98 - 108 mmol/[facility] CantonCO2 [Moles/Vol] 18 mmol/LLow21 - 31 mmol/[facility] CantonCreatinine [Mass/Vol]1.03 mg/dL0.70 - 1.30 mg/dLOur Lady of Mercy Hospital - AndersoneGFR, CKD-EPI, Male87- PINFODetwiler Memorial HospitalGlucose [Mass/Vol]106 mg/zFTwws71 - 99 mg/dLOur Lady of Mercy Hospital - AndersonInterpretation and review of laboratory resultsAbnoParkview Health Bryan HospitalOsmolality Calc [Osmolality]294OSMercy Health Tiffin HospitalPotassium [Moles/Vol]4.0 mmol/L3.5 - 5.0 mmol/[facility] Campusodium [Moles/Vol] 141 mmol/L135 - 145 mmol/[facility] CantonUrea nitrogen [Mass/Vol]10 mg/dL7 - 25 mg/dLOur Lady of Mercy Hospital - AndersonUrea nitrogen/Creatinine [Mass ratio] 10 mg/mgOur Lady of Mercy Hospital - AndersonMAGNESIUMon 14-62-4439Ukmnfqmot [Mass/Vol]1.6 mg/dL1.6 - 2.6 mg/dLOur Lady of Mer[facility] Hospital - AndersonNo Panel Informationon 09-09-2023 Interpretation and review of laboratory resultsNoParkview Health Bryan Hospital [facility] CenterPHOSPHATE, INORGANICon 23-46-9144Avahcmlvk [Mass/Vol] 3.8 mg/dL2.2 - 4.6 mg/dLOur Lady of Mercy Hospital - AndersonTACROLIMUS LEVEL, TROUGH (PRE DRUG LEVEL)on 48-67-0934Longmmnguhhlsb and review of laboratory resultsNoParkview Health Bryan HospitalTacrolimus (Bld) [Mass/Vol]9.2 ng/mLU [facility] WayneOSMercy Health Tiffin HospitalCBC,PLATELETSon 20-33-8763Ommriezpomy distribution width (RBC) [Ratio]13.6 %10.9 - 14.3 %[facility] - AndersonHematocrit (Bld) [Volume fraction]36.1 %Low39.6 - 48.8 %[facility] - AndersonHemoglobin (Bld) [Mass/Vol]11.6 g/dLLow13.4 - 16.8 g/dLOur Lady of Mercy Hospital - AndersonInterpretation and review of laboratory resultsAbnoParkview Health Bryan HospitalMCH (RBC) [Entitic mass]27.4 pg26.1 - 33.3 pgU [facility] CenterMCHC (RBC) [Mass/Vol]32.1 g/dL31.9 - 36.5 g/dLOur Lady of Mercy Hospital - AndersonMCV (RBC) [Entitic vol]85.1 fL79.0 - 94.5 [facility] Platelet mean volume (Bld) [Entitic vol]9.5 fL8.7 - 12.3 [facility] HospitalPlatelets (Bld) [#/Vol]182 10*3/uL146 - 337 K/[facility] RBC (Bld) [#/Vol]4.24 10*6/uLLowOur Lady of Mercy Hospital - AndersonWBC (Bld) [#/Vol]4.59 10*3/uL3.73 - 10.10 K/uLU [facility] WayneCHEM 7 (LYTES,BUN,CREA,GLUC)on 32-07-5753Soigw gap [Moles/Vol]12 mmol/L7 - 17 mmol/L [facility] AndersonChloride [Moles/Vol]113 mmol/LHigh98 - 108 mmol/[facility] CantonCO2 [Moles/Vol]21 mmol/L21 - 31 mmol/[facility] CantonCreatinine [Mass/Vol]1.14 mg/dL0.70 - 1.30 mg/dLOur [facility] of [facility] eGFR, CKD-EPI, Male77- PINFODetwiler Memorial HospitalGlucose [Mass/Vol]107 mg/dL High70 - 99 mg/dLOur Lady of Mercy Hospital - AndersonOsmolality Calc [Osmolality]296[facility] CenterPotassium [Moles/Vol]3.9 mmol/L3.5 - 5.0 mmol/[facility] MEDICAL CENTERU [facility] Memorial Hospitalodium [Moles/Vol]142 mmol/L135 - 145 mmol/[facility] CantonUrea nitrogen [Mass/Vol]11 mg/dL7 - 25 mg/dLOur Lady of Mercy Hospital - AndersonUrea nitrogen/Creatinine [Mass ratio]10 mg/mgOur Lady of Mercy Hospital - AndersonHEPATIC FUNCTION PANELon 84-14-2652Yvmjdjl [Mass/Vol]2.9 g/dLLow3.5 - 5.0 g/dLOur Lady of Mercy Hospital - AndersonALP [Catalytic activity/Vol]133 U/LHigh32 - 126 U/[facility]onALT [Catalytic activity/Vol]23 U/L10 - 52 U/[facility]onAST [Catalytic activity/Vol]23 U/L10 - 39 U/[facility] Bilirubin [Mass/Vol]0.8 mg/dLNINF - 1.5 mg/dLOur Lady of [facility] Bilirubin.direct [Mass/Vol]0.2 mg/dLNINF - 0.3 mg/dLOur [facility] of [facility] Protein [Mass/Vol]5.9 g/dLLow6.4 - 8.3 g/dLOur Lady of Mercy Hospital - AndersonMAGNESIUMon 21-69-8783Ttfszoxikniapn and review of laboratory resultsNoParkview Health Bryan HospitalMagnesium [Mass/Vol]1.8 mg/dL1.6 - 2.6 mg/dLOur Lady of Mer[facility] - AndersonNo Panel Informationon 73-45-1091Trzgpevzmmlcrs and review of laboratory resultsAbnoParkview Health Bryan HospitalOSMercy Health Tiffin HospitalPHOSPHATE, INORGANICon 26-05-0974Uhioezngdlhkvr and review of laboratory resultsNoParkview Health Bryan HospitalPhosphate [Mass/Vol]4.1 mg/dL2.2 - 4.6 mg/dLMemorial Hospital Of GardenaTACROLIMUS LEVEL, TROUGH (PRE DRUG LEVEL) on 88-00-2392Fiqwtchjjotflo and review of laboratory resultsNoParkview Health Bryan HospitalTacrolimus (Bld) [Mass/Vol]8.5 ng/mLU [facility] CenterOSMercy Health Tiffin HospitalOSMercy Health Tiffin HospitalCBC,PLATELETSon 09-07-2023 Erythrocyte distribution width (RBC) [Ratio]13.5 %10.9 - 14.3 %[facility] AndersonHematocrit (Bld) [Volume fraction]37.1 %Low39.6 - 48.8 %[facility] AndersonHemoglobin (Bld) [Mass/Vol]11.9 g/dLLow13.4 - 16.8 g/dLOur Lady of Mercy Hospital - AndersonInterpretation and review of laboratory resultsAbnoParkview Health Bryan HospitalMCH (RBC) [Entitic mass]27.7 pg26.1 - 33.3 pgU [facility] CenterMCHC (RBC) [Mass/Vol]32.1 g/dL31.9 - 36.5 g/dLOur Lady of Mercy Hospital - AndersonMCV (RBC) [Entitic vol]86.5 fL79.0 - 94.5 [facility] HospitalPlatelet mean volume (Bld) [Entitic vol]9.6 fL8.7 - 12.3 [facility] HospitalPlatelets (Bld) [#/Vol]176 10*3/uL146 - 337 K/uLOur Lady of Mercy Hospital - AndersonRBC (Bld) [#/Vol] 4.29 10*6/uLLowU [facility] CenterWBC (Bld) [#/Vol]4.10 10*3/uL3.73 - 10.10 K/uLMemorial Hospital Of GardenaCHEM 7 (LYTES,BUN,CREA,GLUC)on 34-40-7661Fkxkd gap [Moles/Vol]13 mmol/L7 - 17 mmol/LOSU [facility] CenterChloride [Moles/Vol]113 mmol/LHigh98 - 108 mmol/[facility] CantonCO2 [Moles/Vol]19 mmol/LLow21 - 31 mmol/[facility] CantonCreatinine [Mass/Vol]1.22 mg/dL0.70 - 1.30 mg/dLOur Lady of [facility] eGFR, CKD-EPI, Male71- PINFOSU [facility] CenterGlucose [Mass/Vol]107 mg/dL High70 - 99 mg/dLOur Lady of Mercy Hospital - AndersonOsmolality Calc [Osmolality]295[facility] CenterPotassium [Moles/Vol]3.9 mmol/L3.5 - 5.0 mmol/[facility] Campusodium [Moles/Vol]141 mmol/L135 - 145 mmol/[facility] CantonUrea nitrogen [Mass/Vol]13 mg/dL7 - 25 mg/dLOur Lady of Mercy Hospital - AndersonUrea nitrogen/Creatinine [Mass ratio]11 mg/mgOur Lady of Mercy Hospital - AndersonHEPATIC FUNCTION PANELon 88-17-0401Huhqtox [Mass/Vol]2.9 g/dLLow3.5 - 5.0 g/dLOur Lady of Mercy Hospital - AndersonALP [Catalytic activity/Vol]111 U/L32 - 126 U/[facility]onALT [Catalytic activity/Vol]18 U/L10 - 52 U/[facility] CantonAST [Catalytic activity/Vol]23 U/L10 - 39 U/[facility] CantonBilirubin [Mass/Vol]0.8 mg/dLNINF - 1.5 mg/dLOur Lady of Mercy Hospital - AndersonBilirubin.direct [Mass/Vol]0.3 mg/dLHighNINF - 0.3 mg/dLOur Lady of [facility] - AndersonProtein [Mass/Vol]6.0 g/dLLow6.4 - 8.3 g/dLOur Lady of Mer[facility] Hospital - AndersonMAGNESIUMon 94-43-1076Qiaudgizfozlzu and review of laboratory resultsNormalODetwiler Memorial HospitalMagnesium [Mass/Vol]1.7 mg/dL1.6 - 2.6 mg/dLOur Lady of Mer[facility] Hospital - AndersonNo Panel Informationon 28-13-6439Ucdlrrmmlnvtyu and review of laboratory resultsAbnoLos Angeles General Medical CenterPHOSPHATE, INORGANICon 77-69-9639Yccxuhurkwxvvs and review of laboratory resultsNoParkview Health Bryan HospitalPhosphate [Mass/Vol]4.4 mg/dL2.2 - 4.6 mg/dLU [facility] CenterOSMercy Health Tiffin HospitalTACROLIMUS LEVEL, TROUGH (PRE DRUG LEVEL) Ordered By: Elizabeth Maldonado on 49-82-1754Kgtwkttiuyueid and review of laboratory resultsNoParkview Health Bryan HospitalTacrolimus (Bld) [Mass/Vol]7.8 ng/mLU [facility] CBC,PLATELETSon 45-37-3687Kghhrlasaaa distribution width (RBC) [Ratio]13.4 %10.9 - 14.3 %[facility] - AndersonHematocrit (Bld) [Volume fraction]38.4 %Low 39.6 - 48.8 %[facility] AndersonHemoglobin (Bld) [Mass/Vol]11.9 g/dLLow 13.4 - 16.8 g/dLOur Lady of Mercy Hospital - AndersonInterpretation and review of laboratory resultsAbMercy Health St. Vincent Medical CenterH (RBC) [Entitic mass]26.6 pg26.1 - 33.3 pgU [facility] CenterHC (RBC) [Mass/Vol]31.0 g/dLLow31.9 - 36.5 g/dLOur Lady of Mercy Hospital - AndersonMCV (RBC) [Entitic vol]85.9 fL79.0 - 94.5 fLODetwiler Memorial HospitalPlatelet mean volume (Bld) [Entitic vol]9.7 fL8.7 - 12.3 fL [facility] AndersonPlatelets (Bld) [#/Vol]181 10*3/uL146 - 337 K/uLU [facility] CenterRBC (Bld) [#/Vol]4.47 10*6/uLOSU [facility] CenterWBC (Bld) [#/Vol]4.41 10*3/uL3.73 - 10.10 K/uLOSU [facility] CenterOSU [facility] CenterCHEM 7 (LYTES,BUN,CREA,GLUC)on 15-30-4856Whjbs gap [Moles/Vol]14 mmol/L7 - 17 mmol/[facility] CantonChloride [Moles/Vol]109 mmol/LHigh98 - 108 mmol/[facility] CantonCO2 [Moles/Vol]19 mmol/LLow21 - 31 mmol/L [facility] CenterCreatinine [Mass/Vol]1.26 mg/dL0.70 - 1.30 mg/dLOSMercy Health Tiffin HospitaleGFR, CKD-EPI, Male69- PINFOSU [facility] CenterGlucose [Mass/Vol]114 mg/cOMdcw60 - 99 mg/dLOur Lady of Mercy Hospital - AndersonOsmolality Calc [Osmolality]291[facility] CenterPotassium [Moles/Vol]4.1 mmol/L3.5 - 5.0 mmol/[facility] Campusodium [Moles/Vol]138 mmol/L135 - 145 mmol/[facility] CantonUrea nitrogen [Mass/Vol]16 mg/dL7 - 25 mg/dLOur Lady of Mercy Hospital - AndersonUrea nitrogen/Creatinine [Mass ratio]13 mg/mgOur Lady of Mercy Hospital - AndersonHEPATIC FUNCTION PANELon 88-99-7401Wygkgzk [Mass/Vol]3.0 g/dLLow3.5 - 5.0 g/dLOur Lady of Mercy Hospital - AndersonALP [Catalytic activity/Vol]115 U/L32 - 126 U/[facility]onALT [Catalytic activity/Vol]25 U/L10 - 52 U/[facility]onAST [Catalytic activity/Vol]31 U/L10 - 39 U/[facility] CantonBilirubin [Mass/Vol]1.0 mg/dLNINF - 1.5 mg/dLOur Lady of [facility] Bilirubin.direct [Mass/Vol]0.3 mg/dLHighNINF - 0.3 mg/dLOur Lady of [facility] - AndersonProtein [Mass/Vol]6.3 g/dLLow6.4 - 8.3 g/dLOur [facility] of [facility] MAGNESIUMon 88-51-5918Huqouvygfhnejq and review of laboratory resultsNoParkview Health Bryan HospitalMagnesium [Mass/Vol]2.0 mg/dL1.6 - 2.6 mg/dLU [facility] CenterNo Panel Informationon 22-58-3411Kfbxubqgdtjwtj and review of laboratory resultsAbParkview Community Hospital [facility] Center TACROLIMUS LEVEL, TROUGH (PRE DRUG LEVEL)on 21-36-5391Fsxzyyebynjomt and review of laboratory resultsNoParkview Health Bryan HospitalTacrolimus (Bld) [Mass/Vol] 6.7 ng/mLU [facility])CBC,PLATELETSon 18-41-1231Isemiphsunp distribution width (RBC) [Ratio]13.5 %10.9 - 14.3 %[facility] - AndersonHematocrit (Bld) [Volume fraction]35.6 % Low39.6 - 48.8 %[facility] AndersonHemoglobin (Bld) [Mass/Vol]11.4 g/dLLow 13.4 - 16.8 g/dLOur Lady of Mercy Hospital - AndersonInterpretation and review of laboratory resultsAbMercy Health St. Vincent Medical CenterH (RBC) [Entitic mass]27.5 pg26.1 - 33.3 pgU [facility] CenterMCHC (RBC) [Mass/Vol]32.0 g/dL31.9 - 36.5 g/dL [facility] AndersonMCV (RBC) [Entitic vol]86.0 fL79.0 - 94.5 [facility] HospitalPlatelet mean volume (Bld) [Entitic vol]10.0 fL8.7 - 12.3 [facility] HospitalPlatelets (Bld) [#/Vol]170 10*3/uL146 - 337 K/uLOur Lady of Mercy Hospital - AndersonRBC (Bld) [#/Vol]4.14 10*6/uLLowU [facility] CenterWBC (Bld) [#/Vol]4.24 10*3/uL3.73 - 10.10 K/uLU [facility] CenterOSMercy Health Tiffin HospitalCHEM 7 (LYTES,BUN,CREA,GLUC)on 95-82-3882Xdwbh gap [Moles/Vol]12 mmol/L7 - 17 mmol/[facility] CantonChloride [Moles/Vol]107 mmol/L98 - 108 mmol/[facility] CantonCO2 [Moles/Vol]20 mmol/LLow21 - 31 mmol/[facility] CantonCreatinine [Mass/Vol]1.43 mg/dLHigh0.70 - 1.30 mg/dLOur Lady of Mercy Hospital - AndersoneGFR, CKD-EPI, Dscz66Qxv- PINFOSU [facility] Glucose [Mass/Vol]111 mg/fIJdjt76 - 99 mg/dLOur Lady of Mercy Hospital - AndersonOsmolality Calc [Osmolality]286[facility] CenterPotassium [Moles/Vol]4.2 mmol/L3.5 - 5.0 mmol/[facility] Campusodium [Moles/Vol]135 mmol/L135 - 145 mmol/[facility] CantonUrea nitrogen [Mass/Vol]18 mg/dL7 - 25 mg/dLOur Lady of Mercy Hospital - AndersonUrea nitrogen/Creatinine [Mass ratio]13 mg/mgOur Lady of Mercy Hospital - AndersonCONTINUOUS CARDIAC MONITORING STRIPon 49-57-3278KFYOur Lady of Mercy Hospital - AndersonHEPATIC FUNCTION PANELon 58-33-6770Sowhahp [Mass/Vol]2.8 g/dLLow3.5 - 5.0 g/dLOur Lady of Mercy Hospital - AndersonALP [Catalytic activity/Vol]103 U/L32 - 126 U/[facility]onALT [Catalytic activity/Vol]26 U/L10 - 52 U/[facility] CantonAST [Catalytic activity/Vol]38 U/L10 - 39 U/[facility] CantonBilirubin [Mass/Vol]0.9 mg/dLNINF - 1.5 mg/dLOur Lady of [facility] Bilirubin.direct [Mass/Vol]0.1 mg/dLNINF - 0.3 mg/dLOur Lady of [facility] Protein [Mass/Vol]6.1 g/dLLow6.4 - 8.3 g/dLOSU [facility] CenterHISTOPLASMA ANTIGEN, FLUIDon [id number] SOURCEBAL [facility] HospitalHisto FLD interpretationNegativeOSU [facility] CenterHistoplasma Antigen, FLUIDNot detectedng/mLOSU [facility] CenterOSMercy Health Tiffin HospitalHISTOPLASMA CAPSULATUM/BLASTOMYCES SPECIES,PCR FLUIDon [id number]/BLASTO RESULTNegative Not ApplicableOSMiddletown Hospitalpecimen source Nom (Unsp spec)BAL [facility] HospitalOSMercy Health Tiffin HospitalIMMUNOPHENOTYPING, TISSUE/FLUIDon [id number] DX CODEUse OrderingOSU [facility] CenterFlow Interpretation See CommentOSU [facility] CenterFlow Interpreted by:Yossi Perla MD, PhDOSU [facility] CenterOSMercy Health Tiffin HospitalOSMercy Health Tiffin Hospital MAGNESIUMon [id number] and review of laboratory resultsNoParkview Health Bryan HospitalMagnesium [Mass/Vol]1.7 mg/dL1.6 - 2.6 mg/dLOSMercy Health Tiffin HospitalNo Panel Informationon [id number] and review of laboratory resultsAbJersey Shore University Medical CenterTACROLIMUS LEVEL, TROUGH (PRE DRUG LEVEL)Ordered By: Raymundo Mehta on [id number] and review of laboratory resultsNoParkview Health Bryan HospitalTacrolimus (Bld) [Mass/Vol]5.3 ng/mLU [facility] Hospital at WayneOSMercy Health Tiffin HospitalARTERIAL BLOOD GAS (FULL PANEL)on 18-17-0700Srrq excess Calc (Bld) [Moles/Vol]-1.2000 mmol/L-3.0 - 3.0 mmol/LOSU [facility] Medical CenterCalcium.ionized (Bld) [Mass/Vol]4.79 mg/dL4.60 - 5.30 mg/dLOur Lady of Mercy Hospital - AndersonCarboxyhemoglobin (Bld) [Mass fraction]0.7 % NINF - 1.5 %[facility] Medical CenterCO2 (Bld) [Partial pressure]30 mm[Hg]LowOSMercy Health Tiffin HospitalGlucose [Mass/Vol]159 mg/bULmxf79 - 99 mg/dLOSU Southern [facility] Medical CenterHCO3 (Bld) [Moles/Vol]22 mmol/L22 - 28 mmol/[facility] CantonHematocrit (Bld) [Volume fraction]38.0 %Low40.2 - 50.4 %[facility] CenterHemoglobin (Bld) [Mass/Vol]12.6 g/dLLow13.4 - 16.8 g/dLOur Lady of Mercy Hospital - AndersonInterpretation and review of laboratory resultsAbnormalODetwiler Memorial HospitalLactate [Moles/Vol]2.0 mmol/LHigh0.5 - 1.6 mmol/[facility] Methemoglobin (Bld) [Mass fraction]0.0 %NINF - 1.5 %OSMercy Health Tiffin Hospital Oxygen (Bld) [Partial pressure]62 mm[Hg]LowOSMercy Health Tiffin HospitalOxygen saturation in Blood92 %Low94 - 98 %[facility] CenterOxyhemoglobin91 %Low 94 - 98 %OSMercy Health Tiffin HospitalpH (Bld)7.48 [pH]High7.35 - 7.45[facility] AndersonPotassium [Moles/Vol]4.2 mmol/L3.5 - 5.0 mmol/[facility] Campusodium [Moles/Vol]130 mmol/AJyz574 - 145 mmol/[facility] Specimen source Nom (Unsp spec)ArterialOSU [facility] Medical CenterOSU [facility] CenterBacteria identified Respiratory culture Nom (Unsp spec)on 23-46-4803Rnysmdwm identified Cx Nom (Unsp spec)NO GROWTH DAY 2 OF 2OS[facility] CenterMicroscopic observation Other stain Nom (Unsp spec)Cytocentrifuge preparationOSU [facility] CenterMicroscopic observation Other stain Nom (Unsp spec)Neutrophils, RareOSU [facility] CenterMicroscopic observation Other stain Nom (Unsp spec)Red Blood Cells PresentOSU [facility] Microscopic observation Other stain Nom (Unsp spec)No organisms seenOSU [facility] Medical CenterOSMercy Health Tiffin HospitalBacteria identified Respiratory culture Nom (Unsp spec)Ordered By: Jose Salgado on 37-63-3330Bhmjxrhu identified Cx Nom (Unsp spec)NO GROWTH DAY 2 OF 2OSMercy Health Tiffin HospitalMicroscopic observation Other stain Nom (Unsp spec)Cytocentrifuge preparationOSU [facility] Microscopic observation Other stain Nom (Unsp spec)Neutrophils, ModerateOSU [facility] CenterMicroscopic observation Other stain Nom (Unsp spec)Red Blood Cells PresentOSU [facility] CenterMicroscopic observation Other stain Nom (Unsp spec)No organisms seenOSU [facility] CenterOSMercy Health Tiffin HospitalCBC,PLATELETSon 15-05-8273Rjwhdamziye distribution width (RBC) [Ratio]13.2 %10.9 - 14.3 %[facility] AndersonHematocrit (Bld) [Volume fraction]38.7 % Low39.6 - 48.8 %[facility] AndersonHemoglobin (Bld) [Mass/Vol]12.3 g/dLLow 13.4 - 16.8 g/dLOur Lady of Mercy Hospital - AndersonInterpretation and review of laboratory resultsAbnormBarberton Citizens HospitalH (RBC) [Entitic mass]27.9 pg26.1 - 33.3 pgOur Lady of Mercy Hospital - AndersonMCHC (RBC) [Mass/Vol]31.8 g/dLLow31.9 - 36.5 g/dLOur Lady of Mercy Hospital - AndersonMCV (RBC) [Entitic vol]87.8 fL79.0 - 94.5 fLODetwiler Memorial HospitalPlatelet mean volume (Bld) [Entitic vol]9.8 fL8.7 - 12.3 fL OSMercy Health Tiffin HospitalPlatelets (Bld) [#/Vol]173 10*3/uL146 - 337 K/[facility] Memorial HospitalRBC (Bld) [#/Vol]4.41 10*6/uLU [facility] CenterWBC (Bld) [#/Vol]4.57 10*3/uL3.73 - 10.10 K/uLU [facility] CenterOSMercy Health Tiffin HospitalCHEM 7 (LYTES,BUN,CREA,GLUC)on 53-04-1631Qdych gap [Moles/Vol]16 mmol/L7 - 17 mmol/[facility] CantonChloride [Moles/Vol]104 mmol/L98 - 108 mmol/[facility]onCO2 [Moles/Vol]18 mmol/LLow21 - 31 mmol/[facility]onCreatinine [Mass/Vol]1.22 mg/dL0.70 - 1.30 mg/dLOur Lady of Mercy Hospital - AndersoneGFR, CKD-EPI, Male71- PINMercy Health Urbana HospitalGlucose [Mass/Vol]124 mg/wMXsjm52 - 99 mg/dLOur Lady of Mercy Hospital - AndersonOsmolality Calc [Osmolality]284OSMercy Health Tiffin HospitalPotassium [Moles/Vol]3.9 mmol/L3.5 - 5.0 mmol/[facility] Campusodium [Moles/Vol]134 mmol/JLif235 - 145 mmol/L [facility] CenterUrea nitrogen [Mass/Vol]15 mg/dL7 - 25 mg/dLOur Lady of Mercy Hospital - AndersonUrea nitrogen/Creatinine [Mass ratio]12 mg/mgOur Lady of Mercy Hospital - AndersonCMV PCR,FLUIDS,URINE,EYE ETCon 82-86-0873Shaheufx source Nom (Unsp spec) [facility] Centerpecimen source Nom (Unsp spec)[facility] HospitalHEPATIC FUNCTION PANELon 89-60-0664Jtjogys [Mass/Vol]3.0 g/dLLow 3.5 - 5.0 g/dLOur Lady of Mercy Hospital - AndersonALP [Catalytic activity/Vol]112 U/L32 - 126 U/[facility]onALT [Catalytic activity/Vol]22 U/L10 - 52 U/[facility]onAST [Catalytic activity/Vol]30 U/L10 - 39 U/[facility] CantonBilirubin [Mass/Vol]1.2 mg/dLNINF - 1.5 mg/dLOur Lady of Mercy Hospital - AndersonBilirubin.direct [Mass/Vol]0.4 mg/dLHighNINF - 0.3 mg/dLOSMercy Health Tiffin HospitalProtein [Mass/Vol]6.4 g/dL6.4 - 8.3 g/dLOSMercy Health Tiffin Hospital LEGIONELLA PCRon [id number] sp rRNA Probe Ql (Unsp spec)NegativeNot ApplicableOSMiddletown Hospitalpecimen source Nom (Unsp spec)[facility] CenterLaboratory - Microbiology and Antimicrobial susceptibilityon [id number] DNA ESTELITA+probe Ql (Unsp spec) NegativeNegativeOSMercy Health Tiffin HospitalMAGNESIUMon 33-01-5795Ecbvdwvzz [Mass/Vol]1.4 mg/dLLow1.6 - 2.6 mg/dLOur Lady of Mercy Hospital - AndersonNo Panel Informationon 82-95-2325Xzejkjhniw comment [Interpretation] NarrativeDNROSMercy Health Tiffin HospitalPN Report StatusDNROSMercy Health Tiffin HospitalPneumocystis jiroveci,PCR resultNegativeNot ApplicableOSMercy Health Tiffin HospitalOSMercy Health Tiffin HospitalOSMercy Health Tiffin HospitalInterpretation and review of laboratory resultsAbnoParkview Health Bryan HospitalOSMercy Health Tiffin HospitalPNEUMOCYSTIS JIROVECI,PCRon 40-33-8717Blqkjhwg source Nom (Unsp spec)[facility] Centerpecimen source Nom (Unsp spec)[facility] Portable XR Chest Viewson [id number] [facility] Radiology Study observation (narrative)[facility] CenterPortable XR Chest ViewsOrdered By: Joanie Nugent on 10-27-0584UNKOur Lady of Mercy Hospital - Anderson Work Phone: TACROLIMUS LEVEL, TROUGH (PRE DRUG LEVEL)on 09-04-2023 Interpretation and review of laboratory resultsAbOhioHealth Van Wert Hospital Tacrolimus (Bld) [Mass/Vol]3.6 ng/mLLowOSMercy Health Tiffin HospitalOSMercy Health Tiffin HospitalOSMercy Health Tiffin HospitalASPERGILLUS ANTIGEN, BALon 09-03-2023 Galactomannan Ag IA Qn (Unsp spec)<0.500NINFOur Lady of Mercy Hospital - AndersonOSMercy Health Tiffin HospitalGalactomannan Ag IA Qn (Unsp spec)<0.500NINFOur Lady of Mercy Hospital - AndersonOSMercy Health Tiffin HospitalBAL CONSULTOrdered By: Leonardo Peralta on 76-96-9288QABJWMUA GWVGPURMNVB37 %[facility] Work Phone: bal commentsCorrelation with microbiology stains and cultures is recommended.[facility] Work Phone: Bal Diff Quik Stain Quality CheckAcceptableOur Lady of [facility] Work Phone: DKR BAL INTERPRETATIONCellular specimen comprised of alveolar macrophages and small lymphocytes. No definitive microorganisms are observed. Moderate degenerative changes.[facility] Work Phone: TKR DX CODEUse OrderingOSMercy Health Tiffin Hospital Work Phone: Mosinophils Patterson stain Ql (Unsp spec)0 %[facility] Work Phone: [phone]/100 WBC (Bld)57 %[facility] Work Phone: [phone]/100 WBC Manual cnt (Bronch spec)11 %[facility] Work Phone: Pathologist review Jame (Unsp spec) [Interp]Leonardo Peralta MDOSMercy Health Tiffin Hospital Work Phone: [facility] Work Phone: XAL CONSULTon 32-35-2487MTPAJFYM SPEPHZKNVKE55 %[facility] AndersonBal commentsCorrelation with microbiology stains and cultures is recommended. Correlation with viral studies isrecommended.[facility] AndersonBal Diff Quik Stain Quality CheckAcceptableOur Lady of Mercy Hospital - AndersonBKR BAL INTERPRETATIONCellular specimen comprised of alveolar macrophages and small lymphocytes. No definitive microorganisms are observed. Rare degenerating cells with changes suggestive of viral cytopathic effect are noted. Moderate degenerative changes.[facility] - AndersonBKR DX CODEUse Ordering [facility] AndersonEosinophils Patterson stain Ql (Unsp spec)0 %[facility] AndersonLymphocytes/100 WBC (Bld)49 %[facility] Neutrophils/100 WBC Manual cnt (Bronch spec)18 %[facility] Pathologist review Jame (Unsp spec) [Interp]Leonardo Peralta MDOur Lady of Mercy Hospital - AndersonOSMercy Health Tiffin HospitalBRONCHOSCOPYon 58-51-8445OUM, TriHealthCBC,PLATELETSon 07-39-3552Dnvjwnmbzmy distribution width (RBC) [Ratio]13.4 %10.9 - 14.3 %[facility] AndersonHematocrit (Bld) [Volume fraction]39.6 %39.6 - 48.8 %[facility] AndersonHemoglobin (Bld) [Mass/Vol] 12.8 g/dLLow13.4 - 16.8 g/dLOur Lady of Mercy Hospital - AndersonInterpretation and review of laboratory resultsAbnoParkview Health Bryan HospitalMCH (RBC) [Entitic mass] 27.8 pg26.1 - 33.3 pgOur Lady of Mercy Hospital - AndersonMCHC (RBC) [Mass/Vol]32.3 g/dL31.9 - 36.5 g/dLOur Lady of Mercy Hospital - AndersonMCV (RBC) [Entitic vol]85.9 fL79.0 - 94.5 [facility] HospitalPlatelet mean volume (Bld) [Entitic vol]9.4 fL8.7 - 12.3 [facility] HospitalPlatelets (Bld) [#/Vol]222 10*3/uL146 - 337 K/uL [facility] AndersonRBC (Bld) [#/Vol]4.61 10*6/uLU [facility] WBC (Bld) [#/Vol]4.36 10*3/uL3.73 - 10.10 K/uLU [facility] WayneCHEM 7 (LYTES,BUN,CREA,GLUC)on 65-75-9372Dkjgg gap [Moles/Vol]12 mmol/L7 - 17 mmol/LOSU [facility] CenterChloride [Moles/Vol] 104 mmol/L98 - 108 mmol/LOSU [facility] CenterCO2 [Moles/Vol]24 mmol/L21 - 31 mmol/LOS[facility] CenterCreatinine [Mass/Vol]1.20 mg/dL0.70 - 1.30 mg/dLOSU [facility] CentereGFR, CKD-EPI, Male73- PINFOSU [facility] CenterGlucose [Mass/Vol]112 mg/nSDwej15 - 99 mg/dLOSU [facility] Osmolality Calc [Osmolality]288OS[facility] CenterPotassium [Moles/Vol]4.1 mmol/L3.5 - 5.0 mmol/LOSU [facility] Hospitalodium [Moles/Vol]136 mmol/L135 - 145 mmol/LOSU [facility] CenterUrea nitrogen [Mass/Vol]17 mg/dL7 - 25 mg/dLOSMercy Health Tiffin HospitalUrea nitrogen/Creatinine [Mass ratio]14 mg/mgOSMercy Health Tiffin HospitalCYTOLOGY, NON-GYNOrdered By: Sherice Jimenez on 09-03-2023 CYTOLOGIC DIAGNOSIS d6qjrGDpOEMbqKXyHDRkE1cnlmIhYDWyzIJtL5QwdhydUAqyFE8uGZ5bsZhddKEabICgFUMeCvQho9li j063eSLeo8vwBPYTsexw kYy4o4wwVAVElO3uf0y8yJ49OCNkyC0orQAvULvlisYwOShoczFdgvVwOlg6ILU1lQgfZtbhzPT3tBXy dWV5GOnwx0KiuBpidWip RZI6HPIaLtniFGgwhTC3rYNqxRvosEKrKK2cf9ddtGR5toQrSXO5bIgrhUE6vZwuztnyw5lfkZH3rEA9 RLwrcTK9AWhyVlIjK8dn ROAoaM7lV97jW3ppPDUhySdiADfmPGLqmEC3YBV8XWYcm4dfUKEvnOXxbCYqVbUuEVugBwa8r4etCFBs xR26rVQaksM9wVygGGqf oVZ3JG52QUkxf8ZkFHQacYemLWXmzF4rKcUjCTzmhwZbmzCvlrOzMFjvysTrsnReYGcmluRnw2GjjoNn xCS3EXmswpNxqUV7fSsc OCFgH2D9D304NNmgmeEeqeRjLeIrykg0EGXugTomrFjcdQvwoxJjXMqkviDfbsJrFqDkfFM7GLttRjIu GgFjoFD1GYajDlObyFV9 YJdstGZujDC4HCkxiLL9DGi6RTp8COhzJYgkJsn0bTnikWH9PNzgaK6cQQTsY83yPuE9e6zaeLF2eUK0 XKbxuAC8ROdoTiSgF2uy EUSdxH9tV77mF9goBBEopOhaAVnuFHWviMV0SHD5BQRfq9yqOMWdkKMcwXDmFqDyQZpcByd1c7lwFTIo rH40lYEkdkY6dEqkXL87 ARhtb2IrULHeuErzIRKqwO7qZfWoYXdfjbPumhRsuiLwWOqaehIxajIeIXushtPtm8QfffVajXQ4OGou hpRowJF8zGbbWSBbU6B9 X542FIwclsMszeYdHvKqzqe7IRSywJvezEarsDbozxUzCXhqivUclgDfBxRpjTQ5KFxiJjRuPmOznHP0 NObbEdWtxCR4PZrwnSLc qRO0BIziqNN3XIm8RNm8JDklULsnPdf8hElcaHM5ALobvQ6xKCHzW32lMmF6y5mndVH9yTG8FDqtqJS2 LKqgYnElV1zaZIUqwC8a M50sY5sdGEGxzDgrGFauITDthPZ8DQC2CYDal0sjFPIluGHxjMLgTeCxMRbpFqc2w2txQTQyuX42hVIs lgB3cSwaQD36AIvfb1Iu ZVKrbBwlQCRoyL5xSvAgCTkcwyCtacBynvSrHJxvugLelyLpLDuhpzYby4NrcbTsdON2FNvirrAwhLP3 kJetAFPzK2U0S944PAvu efIwkpAuCaGlpkg6PLTpaWliqVeiqErqdpNrPGwdrcKqewZnXhPpzRR7DSuiNxSfBxLzsJK0YSzpXzPm fVW9OOumkXGoqPH7LTye tGY3XJo7JBq0FJatIYmkSiv8iSftfTD0XSvhkJ3fWLKnR08aFmW2mL21FOirjEfsnK94WWYcmRVspNUe uKJ1IAqruMjqrX15GCSd mFElKUzac0IoTSQuWgP1FGU7WLLhsBwoqY34ZYDbeHWhC352iaExISkmPY34VPKasZCwksZhUpHbUGNn xQMlpSM1LXYeLT1twoqu IIlgAVgtPYXjqnE0FOFmmYXqM7CuYTHwEV5zbmxvZLZ0VPpnIACySLQ2ZjEzCMQgg1Vyuac1SyLtuKt1 i4laVOIqCYTcgSwqs3lr OGS1PQEdyQFvT9emrS0vZCKlJX6ojktqg5kfDGgdEMhoWOOhnCR5xbS7IJYfsTGkC2BaqP9vKCAjAKKg pjOhtWsviE2oLrwvmzSv ERVqVILZBgVXTk1IM5gHWDuLPG9UJFZuAPQIRCzBJWQDZTDEOJyCI7OTXLqZBfHpISGqYVJqU5gSS4tX J7hgYeodKeRhLJyiCSJf ZpBfU0RtYDOadrziCOEwTMCTJD7IEGNYQDNQXw9ERYQ0ZDGswiupnOB1ZXjgxeIkcZv8eXDueOblwH4f YlxmczIyXGNmMSBObyBN LMthB91wstTmB4BjqBHfMJKaOYbwBZ79tAJlCWUxlZLrKTa2mL2vTTrzrBcenrHZpMCrwE1qgukeTIls ZjBccGFyXGxpMFxsczBccGFyfQ==[facility] Work Phone: Case ReportOSU [facility] Work Phone: Clinical History b4deaZQmAOIgqYKjHPNaO5bmspKyQCWadZDlP8ZazsodKMwuWD8tEW1pcSqjhSMolEApBRDuZkFkf1nc e182nKYdw5bvJZQFohbk cMo0pMcqF53wd9V4UihpJ7fcGBKtTDwyGHGpNPcwmEPgOPx6LPSrnBUvnuMbEtLlWNVqjBMssKC1CLUi HI0kofbaTUtwURayGNMx hhS9CQRgnBHyM7OxAIXxCN7rbxdrTKD2ZKazYCMkMXI4UjKmENMpy6Cgmfa9PjWvhHk2d4qaAVLjCZWw wOgrs4hqUYU2RPUmoANp B6sezQ0sVJVgMA9ofuzha1ncPEdfUUsmSBRsrQC2auB7ZXIcbRWfA3KxkK2kHZRsWWCxhdBfwDwzzH7a ApDiYEtmVfPdYyYmSWpzfBZcmnLujFUdkL2uIDXacl7=EFZ [facility] Work Phone: For Immediate Release to Patient's MyChart?YesUniversity [facility] Work Phone: Gross Description q8hqqGIkCFKibWMlCAJgM5wwxoPbZCVikYNqX3IamucyEQlsXK7wUY8ogRkbuKEkdJDvETTgItZvd9sm p207sLGjj2voKKHTzkqo cCb4fPnnF98ou3E1NlkmA43kcNKyIYQ8ZKEsHBZoxIVtCHUjQXL6HJDrePSbM3gfSYPyUX6vxthvLDdz WVhdLBUceCR2KIAoaZVm Z6KnBMItTMknNGFbxqr7VjFqKh7qjGJqzXryZYkhDUDtEAGbCIljIJTxBjPrWXwHVFLSMJubSUYtIAIu qKUoQFn8JTPgdJ7fiXFj oyGqtOBgdM7ezWyuJUxcRPRpMOOENNVkqHmqGAPPGKLul9KkrD2xzAPoJDFynaLmiONsNYRjqh9=CDR [facility] Work Phone: OSMercy Health Tiffin Hospital Work Phone: HEPATIC FUNCTION PANELon 76-98-7486Vzoyris [Mass/Vol] 3.2 g/dLLow3.5 - 5.0 g/dLOSU [facility] CenterALP [Catalytic activity/Vol] 118 U/L32 - 126 U/[facility]ALT [Catalytic activity/Vol]25 U/L10 - 52 U/[facility]onAST [Catalytic activity/Vol]32 U/L10 - 39 U/L OSMercy Health Tiffin HospitalBilirubin [Mass/Vol]1.0 mg/dLNINF - 1.5 mg/dLOSU [facility] CenterBilirubin.direct [Mass/Vol]0.3 mg/dLHighNINF - 0.3 mg/dLOSU [facility] CenterProtein [Mass/Vol]6.5 g/dL6.4 - 8.3 g/dLOSMercy Health Tiffin HospitalHISTOPLASMA AND BLASTOMYCES ANTIGEN, ENZYME IMMUNOASSAY, SERMon 09-03-2023 Histoplasma/Blastomyces Ag ResultDetectedCritically abnormalNot DetectedOSMercy Health Tiffin HospitalHistoplasma/Blastomyces Ag Value5.3 ng/mLOSMercy Health Tiffin HospitalInterpretation and review of laboratory resultsAbnormSt. John of God HospitalOSMercy Health Tiffin HospitalMAGNESIUMon 20-24-3822Abstuyxfprhztx and review of laboratory resultsNoParkview Health Bryan HospitalMagnesium [Mass/Vol]1.6 mg/dL1.6 - 2.6 mg/dLOur Lady of Mercy Hospital - AndersonNo Panel Informationon 09-03-2023 Interpretation and review of laboratory resultsAbOhioHealth Van [facility] Hospital OSMercy Health Tiffin HospitalPARVOVIRUS (B19) DNA, PCR, BLOODon [id number] B19 BY RAPID PCRNot detectedNot DetectedOSMercy Health Tiffin HospitalPR SPEC SOURCE Whole BloodOSU [facility] CenterOSMercy Health Tiffin HospitalPortable XR Chest Viewson [id number] [facility] CenterRadiology Study observation (narrative)[facility] AndersonPortable XR Chest ViewsOrdered By: Lester Grove on 28-07-0971PLKOur Lady of [facility]cy [facility] Work Phone: ASPERGILLUS (GALACTOMANNAN), ANTIGENon 09-02-2023 Galactomannan Ag IA Qn<0.500NINFOSMercy Health Tiffin HospitalOSMercy Health Tiffin HospitalATYPICAL BACTERIAL PNEUMONIA,PCROrdered By: Shari Contreras on 09-02-2023. parapertussis DNA ESTELITA+probe Ql (Unsp spec)Not detectedNot DetectedOur Lady of Mercy Hospital - AndersonB. pertussis DNA ESTELITA+probe Ql (Unsp spec)Not detectedNot Detected OSMercy Health Tiffin HospitalC. pneumoniae DNA ESTELITA+probe Ql (Unsp spec)Not detected Not DetectedOSMercy Health Tiffin HospitalInterpretation and review of laboratory resultsNoParkview Health Bryan HospitalM. pneumoniae DNA ESTELITA+probe Ql (Unsp spec) Not detectedNot DetectedOSSt. Joseph's Wayne HospitalOSU [facility] CenterBRONCHOSCOPYon 57-13-7257Rfeixabuu Study observation (narrative)[facility] AndersonBacteria identified Cx Nom (Bld)on 03-47-6532Wzchbbbr identified Cx Nom (Unsp spec)NO GROWTH DAY 5 OF 5OSSt. Joseph's Wayne HospitalCBC,PLATELETSon 90-60-8927Ridbewxyrct distribution width (RBC) [Ratio]13.2 %10.9 - 14.3 %[facility] Hematocrit (Bld) [Volume fraction]39.9 %39.6 - 48.8 %[facility] Hemoglobin (Bld) [Mass/Vol]12.9 g/dLLow13.4 - 16.8 g/dLOur Lady of Mercy [facility] Interpretation and review of laboratory resultsAbnormSt. John of God Hospital MCH (RBC) [Entitic mass]27.9 pg26.1 - 33.3 pgOur Lady of Mercy Hospital - AndersonMCHC (RBC) [Mass/Vol]32.3 g/dL31.9 - 36.5 g/dLOur Lady of Mercy Hospital - AndersonMCV (RBC) [Entitic vol]86.4 fL79.0 - 94.5 [facility] HospitalPlatelet mean volume (Bld) [Entitic vol]9.5 fL8.7 - 12.3 [facility] HospitalPlatelets (Bld) [#/Vol] 210 10*3/uL146 - 337 K/uLOur Lady of Mercy Hospital - AndersonRBC (Bld) [#/Vol]4.62 10*6/uL [facility] AndersonWBC (Bld) [#/Vol]4.12 10*3/uL3.73 - 10.10 K/uLMemorial Hospital Of GardenaCHEM 7 (LYTES,BUN,CREA,GLUC)on 31-69-2420Wdtua gap [Moles/Vol]13 mmol/L7 - 17 mmol/[facility] Chloride [Moles/Vol]105 mmol/L98 - 108 mmol/[facility] CantonCO2 [Moles/Vol]22 mmol/L21 - 31 mmol/LOSU [facility] CenterCreatinine [Mass/Vol] 1.25 mg/dL0.70 - 1.30 mg/dLOSU [facility] CentereGFR, CKD-EPI, Male69- PINF [facility] CenterGlucose [Mass/Vol]105 mg/sDBcxg48 - 99 mg/dLOSU [facility] CenterOsmolality Calc [Osmolality]287OS[facility] CenterPotassium [Moles/Vol]4.3 mmol/L3.5 - 5.0 mmol/LOSU [facility] Hospitalodium [Moles/Vol] 136 mmol/L135 - 145 mmol/[facility]ICAL CENTERU [facility] CenterUrea nitrogen [Mass/Vol]16 mg/dL7 - 25 mg/dLOSU [facility] CenterUrea nitrogen/Creatinine [Mass ratio] 13 mg/mgOur Lady of Mercy Hospital - AndersonHEPATIC FUNCTION PANELon 44-13-3498Yseseoc [Mass/Vol]3.2 g/dLLow3.5 - 5.0 g/dLOur Lady of Mercy Hospital - AndersonALP [Catalytic activity/Vol]107 U/L32 - 126 U/[facility]ALT [Catalytic activity/Vol]20 U/L10 - 52 U/[facility]onAST [Catalytic activity/Vol]31 U/L10 - 39 U/[facility] CantonBilirubin [Mass/Vol]1.0 mg/dLNINF - 1.5 mg/dLOSU [facility] CenterBilirubin.direct [Mass/Vol]0.3 mg/dLHighNINF - 0.3 mg/dLOSMercy Health Tiffin HospitalProtein [Mass/Vol]6.6 g/dL6.4 - 8.3 g/dLOur Lady of Mercy Hospital - AndersonHISTOPLASMA ANTIGEN,URINEon 09-02-2023H. capsulatum Ag (U) [Mass/Vol]Not detectedng/mLOSU [facility] CenterH. capsulatum Ag IA Ql (U)Not detectedNot DetectedOSU [facility] CenterOSU [facility] CenterHIV 1 AND 2 ANTIBODIES/P24 ANTIGENOrdered By: Wilma Luque on 76-85-7207VJX 1+2 Ab+HIV1 p24 Ag IA QlNon-ReactiveNon ReactiveOSMercy Health Tiffin HospitalInterpretation and review of laboratory resultsNoLos Angeles General Medical CenterMAGNESIUMon 99-84-2515Ktuhbwzssmiokb and review of laboratory resultsNoParkview Health Bryan HospitalMagnesium [Mass/Vol] 1.7 mg/dL1.6 - 2.6 mg/dLOur Lady of Mercy Hospital - AndersonNo Panel Informationon 42-26-6641Zfmvomqggrchtm and review of laboratory resultsAbnoLos Angeles General Medical CenterTACROLIMUS LEVEL, TROUGH (PRE DRUG LEVEL) on 94-97-3981Lvhuergjgjcfmf and review of laboratory resultsNoParkview Health Bryan HospitalTacrolimus (Bld) [Mass/Vol]4.2 ng/mLPSE&G Children's Specialized HospitalCBC,PLATELETSon 09-01-2023 Erythrocyte distribution width (RBC) [Ratio]13.4 %10.9 - 14.3 %[facility] AndersonHematocrit (Bld) [Volume fraction]38.9 %Low39.6 - 48.8 %[facility] AndersonHemoglobin (Bld) [Mass/Vol]12.7 g/dLLow13.4 - 16.8 g/dLOur Lady of Mercy Hospital - AndersonInterpretation and review of laboratory resultsAbMercy Health St. Vincent Medical CenterH (RBC) [Entitic mass]27.6 pg26.1 - 33.3 pgOSMercy Health Tiffin HospitalMCHC (RBC) [Mass/Vol]32.6 g/dL31.9 - 36.5 g/dLOur Lady of Mercy Hospital - AndersonMCV (RBC) [Entitic vol]84.6 fL79.0 - 94.5 [facility] HospitalPlatelet mean volume (Bld) [Entitic vol]9.4 fL8.7 - 12.3 [facility] HospitalPlatelets (Bld) [#/Vol]209 10*3/uL146 - 337 K/uLOSU [facility] CenterRBC (Bld) [#/Vol] 4.60 10*6/uLOSU [facility] CenterWBC (Bld) [#/Vol]4.41 10*3/uL3.73 - 10.10 K/uLOSMercy Health Tiffin HospitalOSMercy Health Tiffin HospitalCHEM 7 (LYTES,BUN,CREA,GLUC)on 19-07-3791Ijqqx gap [Moles/Vol]14 mmol/L7 - 17 mmol/[facility] CantonChloride [Moles/Vol]103 mmol/L98 - 108 mmol/[facility] CantonCO2 [Moles/Vol]21 mmol/L21 - 31 mmol/[facility] Creatinine [Mass/Vol]1.16 mg/dL0.70 - 1.30 mg/dLOur Lady of Mercy Hospital - AndersoneGFR, CKD-EPI, Male76- PINFODetwiler Memorial HospitalGlucose [Mass/Vol]117 mg/rEMrlb67 - 99 mg/dLOur Lady of Mercy Hospital - AndersonOsmolality Calc [Osmolality]285OSMercy Health Tiffin HospitalPotassium [Moles/Vol]4.2 mmol/L3.5 - 5.0 mmol/[facility] Campusodium [Moles/Vol]134 mmol/CTgu915 - 145 mmol/[facility] Urea nitrogen [Mass/Vol]18 mg/dL7 - 25 mg/dLOur Lady of Mercy Hospital - AndersonUrea nitrogen/Creatinine [Mass ratio]16 mg/mgOur Lady of Mercy Hospital - AndersonCRYPTOCOCCAL ANTIGENon [id number] sp Ag Ql (S)NegativeNegativeOur Lady of Mercy Hospital - AndersonInterpretation and review of laboratory resultsNormSt. John of God HospitalOSMercy Health Tiffin HospitalHEPATIC FUNCTION PANELon [id number] [Mass/Vol]3.3 g/dLLow3.5 - 5.0 g/dLOur Lady of Mercy Hospital - AndersonALP [Catalytic activity/Vol]112 U/L32 - 126 U/[facility] CantonALT [Catalytic activity/Vol]21 U/L10 - 52 U/[facility]onAST [Catalytic activity/Vol]29 U/L10 - 39 U/[facility] CantonBilirubin [Mass/Vol]1.0 mg/dLNINF - 1.5 mg/dLOur Lady of Mercy Hospital - AndersonBilirubin.direct [Mass/Vol]0.2 mg/dLNINF - 0.3 mg/dLOur Lady of Mercy Hospital - AndersonProtein [Mass/Vol]6.8 g/dL6.4 - 8.3 g/dLOur Lady of Mercy Hospital - AndersonL. pneumophila 1 Ag IA Ql (U)Ordered By: Carolin Miles on [id number] and review of laboratory resultsNoParkview Health Bryan HospitalOSMercy Health Tiffin HospitalLEGIONELLA URINARY AGOrdered By: Carolin Miles on 09-01-2023L. pneumophila 1 Ag IA Ql (U)NegativeNegativeOur Lady of Mer[facility] - AndersonMAGNESIUMon [id number] and review of laboratory resultsNoParkview Health Bryan HospitalMagnesium [Mass/Vol]1.6 mg/dL 1.6 - 2.6 mg/dLOur Lady of Mercy Hospital - AndersonNo Panel Informationon 09-01-2023 Interpretation and review of laboratory resultsAbnoParkview Health Bryan Hospital OSMercy Health Tiffin HospitalCBC,PLATELETSon [id number] distribution width (RBC) [Ratio]13.3 %10.9 - 14.3 %[facility] - AndersonHematocrit (Bld) [Volume fraction]39.4 %Low39.6 - 48.8 %[facility] - AndersonHemoglobin (Bld) [Mass/Vol]12.8 g/dLLow13.4 - 16.8 g/dLOur Lady of [facility]cy Hospital - AndersonInterpretation and review of laboratory resultsAbnoParkview Health Bryan HospitalMCH (RBC) [Entitic mass]27.6 pg26.1 - 33.3 pgU [facility] CenterMCHC (RBC) [Mass/Vol]32.5 g/dL31.9 - 36.5 g/dLOur Lady of Mercy Hospital - AndersonMCV (RBC) [Entitic vol]85.1 fL79.0 - 94.5 [facility] HospitalPlatelet mean volume (Bld) [Entitic vol]9.6 fL8.7 - 12.3 [facility] HospitalPlatelets (Bld) [#/Vol] 228 10*3/uL146 - 337 K/uLOur Lady of Mercy Hospital - AndersonRBC (d) [#/Vol]4.63 10*6/uL OSMercy Health Tiffin HospitalWBC (d) [#/Vol]4.77 10*3/uL3.73 - 10.10 K/uLOSU [facility] CenterOSMercy Health Tiffin HospitalCHEM 7 (LYTES,BUN,CREA,GLUC)on 95-80-9531Rtrsa gap [Moles/Vol]13 mmol/L7 - 17 mmol/[facility] Chloride [Moles/Vol]102 mmol/L98 - 108 mmol/[facility] CantonCO2 [Moles/Vol]23 mmol/L21 - 31 mmol/[facility]onCreatinine [Mass/Vol] 1.37 mg/dLHigh0.70 - 1.30 mg/dLOur Lady of Mercy Hospital - AndersoneGFR, CKD-EPI, Male62- PINMercy Health Urbana HospitalGlucose [Mass/Vol]112 mg/wJZsos93 - 99 mg/dLOur Lady of Mercy Hospital - AndersonOsmolality Calc [Osmolality]284OSMercy Health Tiffin Hospital Potassium [Moles/Vol]4.4 mmol/L3.5 - 5.0 mmol/[facility] Campusodium [Moles/Vol]134 mmol/YXxw397 - 145 mmol/[facility] CantonUrea nitrogen [Mass/Vol]16 mg/dL7 - 25 mg/dLOur Lady of Mercy Hospital - AndersonUrea nitrogen/Creatinine [Mass ratio]12 mg/mgOur Lady of Mercy Hospital - AndersonCT Abdomen and Pelvis WO contraston [id number] [facility] CenterRadiology Study observation (narrative)[facility] - AndersonCT Abdomen and Pelvis WO contrastOrdered By: Chavez Larkin on 02-56-9971CVGOur Lady of Mercy Hospital - Anderson Work Phone: ct Chest WO contraston [id number] [facility] CenterRadiology Study observation (narrative)[facility]U [facility] CenterCT Chest WO contrastOrdered By: Daisha Patterson on 91-73-7083MVCOur Lady of Mercy Hospital - Anderson Work Phone: FERRITINon 24-56-4100Szmgtpnw [Mass/Vol]409.0 ng/mL High10.5 - 307.3 ng/mLOSMercy Health Tiffin HospitalInterpretation and review of laboratory resultsAbnoParkview Health Bryan HospitalOSMercy Health Tiffin Hospital HEPATIC FUNCTION PANELon 46-92-3337Fyieemm [Mass/Vol]3.3 g/dLLow3.5 - 5.0 g/dL [facility] AndersonALP [Catalytic activity/Vol]113 U/L32 - 126 U/[facility]onALT [Catalytic activity/Vol]25 U/L10 - 52 U/[facility]onAST [Catalytic activity/Vol]31 U/L10 - 39 U/[facility]onBilirubin [Mass/Vol]1.1 mg/dLNINF - 1.5 mg/dLOur Lady of Mercy Hospital - Anderson Bilirubin.direct [Mass/Vol]0.3 mg/dLHighNINF - 0.3 mg/dLOur Lady of Mercy Hospital - AndersonProtein [Mass/Vol]7.0 g/dL6.4 - 8.3 g/dLOur Lady of Mercy Hospital - AndersonMAGNESIUM on 06-13-6005Mjencyxnfshisd and review of laboratory resultsNoParkview Health Bryan HospitalMagnesium [Mass/Vol]1.7 mg/dL1.6 - 2.6 mg/dLOur Lady of Mercy Hospital - AndersonNo Panel Informationon 10-33-7834Ueqxzxdekjmler and review of laboratory resultsAbnoParkview Health Bryan HospitalOSMercy Health Tiffin HospitalPROCALCITONINon 40-87-1374Syvkqmqhkwhszr and review of laboratory resultsNoParkview Health Bryan HospitalProcalcitonin [Mass/Vol]0.23 ng/mLNINF - 0.50 ng/mLOSMercy Health Tiffin HospitalOSMercy Health Tiffin HospitalTACROLIMUS LEVEL, TROUGH (PRE DRUG LEVEL) Ordered By: Yanira Marcum on 21-23-6065Ahcaqtpccfaxdk and review of laboratory resultsNoParkview Health Bryan HospitalTacrolimus (Bld) [Mass/Vol]5.9 ng/mLOSU [facility] CenterOSU [facility] CenterOSU [facility] CenterURINE CULTUREOrdered By: Miranda Lozano on 08-39-7357Ktxookak identified Cx Nom (Unsp spec)No GrowthOSSt. Joseph's Wayne HospitalCANDIDA AURIS SCREEN BY PCROrdered By: Mynor Alejandro on 94-71-4755Hsyokvv auris Screen by PCRNot detectedNot DetectedOur Lady of Mercy Hospital - AndersonInterpretation and review of laboratory resultsNormMonmouth Medical Center [facility] ([facility])[3]CBC,PLATELETSon 35-14-1197Lljkifvezka distribution width (RBC) [Ratio]13.3 %10.9 - 14.3 %[facility] AndersonHematocrit (Bld) [Volume fraction]41.3 %39.6 - 48.8 %[facility] AndersonHemoglobin (Bld) [Mass/Vol]13.2 g/dLLow13.4 - 16.8 g/dLOur Lady of Mercy Hospital - AndersonInterpretation and review of laboratory resultsAbnoParkview Health Bryan HospitalMCH (RBC) [Entitic mass]27.3 pg26.1 - 33.3 pgOur Lady of Mercy Hospital - AndersonMCHC (RBC) [Mass/Vol]32.0 g/dL31.9 - 36.5 g/dLOur Lady of Mercy Hospital - AndersonMCV (RBC) [Entitic vol]85.5 fL79.0 - 94.5 [facility] HospitalPlatelet mean volume (Bld) [Entitic vol]9.2 fL8.7 - 12.3 [facility] HospitalPlatelets (Bld) [#/Vol] 235 10*3/uL146 - 337 K/uLOur Lady of Mercy Hospital - AndersonRBC (Bld) [#/Vol]4.83 10*6/uL U [facility] CenterWBC (Bld) [#/Vol]4.96 10*3/uL3.73 - 10.10 K/uLU [facility] at WayneCHEM 7 (LYTES,BUN,CREA,GLUC)on 97-83-7276Xuylr gap [Moles/Vol]14 mmol/L7 - 17 mmol/[facility] Chloride [Moles/Vol]102 mmol/L98 - 108 mmol/[facility]onCO2 [Moles/Vol]20 mmol/LLow21 - 31 mmol/[facility]onCreatinine [Mass/Vol]1.56 mg/dLHigh0.70 - 1.30 mg/dLOur Lady of Mercy Hospital - AndersoneGFR, CKD-EPI, Hgba18Emg- PINFOSU [facility] CenterGlucose [Mass/Vol]123 mg/qSFtig42 - 99 mg/dLOur Lady of Mercy Hospital - AndersonOsmolality Calc [Osmolality]281OSU [facility] CenterPotassium [Moles/Vol]4.3 mmol/L3.5 - 5.0 mmol/[facility] Sodium [Moles/Vol]132 mmol/JRhx018 - 145 mmol/[facility] CantonUrea nitrogen [Mass/Vol]16 mg/dL7 - 25 mg/dLOur Lady of Mercy Hospital - AndersonUrea nitrogen/Creatinine [Mass ratio]10 mg/mgOur Lady of Mercy Hospital - AndersonEXTRA MICROon 95-91-8231FLBOur Lady of Mercy Hospital - AndersonHEPATIC FUNCTION PANELon 92-85-1873Tfkjwck [Mass/Vol]3.7 g/dL3.5 - 5.0 g/dLOur Lady of Mercy Hospital - AndersonALP [Catalytic activity/Vol]115 U/L32 - 126 U/[facility]onALT [Catalytic activity/Vol]22 U/L10 - 52 U/[facility]onAST [Catalytic activity/Vol]34 U/L10 - 39 U/[facility]onBilirubin [Mass/Vol]1.2 mg/dLNINF - 1.5 mg/dLOur Lady of Mercy Hospital - AndersonBilirubin.direct [Mass/Vol]0.3 mg/dLHighNINF - 0.3 mg/dLOur Lady of Mercy Hospital - AndersonProtein [Mass/Vol]7.7 g/dL6.4 - 8.3 g/dLOur Lady of Mercy Hospital - AndersonMAGNESIUMon 41-41-0635Kolqpbtnulzfti and review of laboratory resultsNoParkview Health Bryan HospitalMagnesium [Mass/Vol] 1.8 mg/dL1.6 - 2.6 mg/dLOur Lady of Mercy Hospital - AndersonNo Panel Informationon 17-60-9715Uojnaguwtyznbk and review of laboratory resultsAbnoLos Angeles General Medical CenterCBC,PLATELETSon 33-02-3613Uyuksyjiazm distribution width (RBC) [Ratio]13.4 %10.9 - 14.3 %[facility] Hematocrit (Bld) [Volume fraction]37.6 %Low39.6 - 48.8 %[facility] AndersonHemoglobin (Bld) [Mass/Vol]12.2 g/dLLow13.4 - 16.8 g/dLOur Lady of Mercy Hospital - AndersonInterpretation and review of laboratory resultsAbOhioHealth Van Wert HospitalMCH (RBC) [Entitic mass]27.6 pg26.1 - 33.3 pgOur Lady of Mercy Hospital - AndersonMCHC (RBC) [Mass/Vol]32.4 g/dL31.9 - 36.5 g/dLOur Lady of Mercy Hospital - AndersonMCV (RBC) [Entitic vol]85.1 fL79.0 - 94.5 [facility] HospitalPlatelet mean volume (Bld) [Entitic vol]9.4 fL8.7 - 12.3 [facility] HospitalPlatelets (Bld) [#/Vol]233 10*3/uL146 - 337 K/uLOur Lady of Mercy Hospital - AndersonRBC (Bld) [#/Vol]4.42 10*6/uLU [facility] CenterWBC (Bld) [#/Vol]4.92 10*3/uL3.73 - 10.10 K/uL [facility] GardenaCHEM 7 (LYTES,BUN,CREA,GLUC)on 98-45-1582Twvbp gap [Moles/Vol]13 mmol/L7 - 17 mmol/[facility] Chloride [Moles/Vol]105 mmol/L98 - 108 mmol/[facility]onCO2 [Moles/Vol]20 mmol/LLow21 - 31 mmol/[facility]onCreatinine [Mass/Vol]1.55 mg/dLHigh0.70 - 1.30 mg/dLOur Lady of Mercy Hospital - AndersoneGFR, CKD-EPI, Zivz49Krs- PINMercy Health Urbana HospitalGlucose [Mass/Vol]108 mg/sYWzfq71 - 99 mg/dLOur Lady of Mercy Hospital - AndersonOsmolality Calc [Osmolality]283OSU [facility] CenterPotassium [Moles/Vol]4.5 mmol/L3.5 - 5.0 mmol/[facility] Sodium [Moles/Vol]133 mmol/IEba007 - 145 mmol/[facility] CantonUrea nitrogen [Mass/Vol]19 mg/dL7 - 25 mg/dLOur Lady of Mercy Hospital - AndersonUrea nitrogen/Creatinine [Mass ratio]12 mg/mgOur Lady of Mercy Hospital - AndersonGGTon 81-94-4956Vyure glutamyl transferase [Catalytic activity/Vol]64 U/L8 - 64 U/[facility] CantonInterpretation and review of laboratory resultsNoLos Angeles General Medical CenterHEPATIC FUNCTION PANELon 71-05-7989Rrihsft [Mass/Vol]3.3 g/dLLow3.5 - 5.0 g/dLOur Lady of [facility] ALP [Catalytic activity/Vol]103 U/L32 - 126 U/[facility]ALT [Catalytic activity/Vol]18 U/L10 - 52 U/[facility]onAST [Catalytic activity/Vol]27 U/L10 - 39 U/[facility]onBilirubin [Mass/Vol]1.1 mg/dLNINF - 1.5 mg/dLOur Lady of Mercy Hospital - AndersonBilirubin.direct [Mass/Vol]0.3 mg/dLHighNINF - 0.3 mg/dLOur Lady of Mercy Hospital - AndersonProtein [Mass/Vol]6.8 g/dL6.4 - 8.3 g/dLOur Lady of Mercy Hospital - AndersonMAGNESIUMon 94-80-5427Dxggjkecknyabv and review of laboratory resultsNoParkview Health Bryan HospitalMagnesium [Mass/Vol] 1.7 mg/dL1.6 - 2.6 mg/dLOur Lady of Mercy Hospital - AndersonNo Panel Informationon 31-04-8387Tlszvgiwbphdho and review of laboratory resultsAbnormSt. John of God HospitalOSMercy Health Tiffin HospitalPT,INR,PTTon 94-46-9660dGZZ Coag (PPP) [Time]29.3 [facility] HospitalINR Coag (Bld) [Relative time]1.1 {INR}0.9 - 1.1[facility] - AndersonInterpretation and review of laboratory results NormalOur Lady of Mercy Hospital - AndersonPT Coag (PPP) [Time]13.8 [facility] HospitalPortable XR Chest Viewson 12-48-3074WOLGGZHIP RADIOLOGYOSMercy Health Tiffin HospitalPortable XR Chest ViewsOrdered By: Gerald Baer on 92-19-7296RNTOur Lady of Mercy Hospital - Anderson Work Phone: TACROLIMUS LEVEL, TROUGH (PRE DRUG LEVEL)on 08-29-2023 Interpretation and review of laboratory resultsNoParkview Health Bryan Hospital Tacrolimus (Bld) [Mass/Vol]8.9 ng/mLOur Lady of Mercy Hospital - AndersonOSMercy Health Tiffin HospitalOSMercy Health Tiffin HospitalTACROLIMUS LEVEL, TROUGH (PRE DRUG LEVEL)Ordered By: Roxanne Louie on 77-82-8121Smuxcueclkriff and review of laboratory results NormalOur Lady of Mercy Hospital - AndersonTacrolimus (Bld) [Mass/Vol]8.7 ng/mLMemorial Hospital Of GardenaOSMercy Health Tiffin HospitalURINALYSIS REFLEX TO CULTURE PERFORMABLEOrdered By: Shaji Kelly on 11-93-2403Dwwqutvkdl (U)ClearClearODetwiler Memorial HospitalBacteria LM Ql (Urine sed)ABSENTABSENTOur Lady of Mercy Hospital - AndersonCalcium Oxalate CrystalsPRESENTOSU [facility] Color (U)YellowYellowOur Lady of Mercy Hospital - AndersonEpithelial cells.squamous LM Ql (Urine sed)0-2/hpf0-2/hpf, 3-5/hpf = 1+OSU [facility] CenterGlucose Test strip (U) [Mass/Vol]NegativeNegativeOSMercy Health Tiffin HospitalInterpretation and review of laboratory resultsAbnormalOSU [facility] CenterKetones (U) [Mass/Vol]NegativeNegativeOSU [facility] CenterLeukocyte esterase Test strip Ql (U)NegativeNegativeOSU [facility] CenterNitrite Ql (U)NegativeNegative OSMercy Health Tiffin HospitalpH (U)6.0 [pH]5.0 - 7.0OSU [facility] CenterProtein (U) [Mass/Vol]NegativeNegativeOSU [facility] CenterRBC (U) [#/Vol]Trace AbnormalNegativeOSU [facility] CenterRBC LM.HPF (Urine sed) [#/Area]3-5 AbnormalOSU Greene Memorial Hospitalpecific gravity (U) [Rel density]1.0151.001 - 1.035OSU [facility] CenterUrobilinogen (U) [Mass/Vol]1.0 E.U./dL0.2 E.U/dL, 1.0 E.U/dLOSU [facility] CenterWBC LM.HPF (Urine sed) [#/Area]0 - 5OSU [facility] CenterOSMercy Health Tiffin HospitalUS for transplanted kidney limited on 88-57-1442DZFASXJBSNXOTEOBBFYKT [facility] CenterRadiology Study observation (narrative)OSMercy Health St. [facility] for transplanted kidney limitedOrdered By: Romana Matias on 00-67-2855RLQOur Lady of Mercy Hospital - Anderson Work Phone: cbc AND ELECTRONIC DIFFon 83-41-5707Hlfffxelp (Bld) [#/Vol]K/uL0.00 - 0.09 K/uLOSU [facility] CenterBasophils/100 WBC (Bld)0.6 % OSMercy Health Tiffin HospitalDifferential cell count method Nom (Bld)Electronic DifferentialOSU [facility] CenterEosinophils (Bld) [#/Vol]0.10 10*3/uL0.00 - 0.48 K/uLOSMercy Health Tiffin HospitalEosinophils/100 WBC (Bld)2.1 %[facility]U [facility] CenterErythrocyte distribution width (RBC) [Ratio]13.4 %10.9 - 14.3 %[facility] - AndersonHematocrit (Bld) [Volume fraction]37.9 %Low39.6 - 48.8 % [facility] AndersonHemoglobin (Bld) [Mass/Vol]12.4 g/dLLow13.4 - 16.8 g/dL [facility] AndersonImmature granulocytes (Bld) [#/Vol]K/uLNINF - 0.07 K/uL [facility] AndersonImmature granulocytes/100 WBC (Bld)0.6 %[facility] AndersonInterpretation and review of laboratory resultsAbnormSt. John of God HospitalLymphocytes (Bld) [#/Vol]1.76 10*3/uL0.83 - 3.57 K/uLOur Lady of Mercy Hospital - AndersonLymphocytes/100 WBC (Bld)37.1 %[facility] SpringfieldH (RBC) [Entitic mass]27.8 pg26.1 - 33.3 pgKettering Health SpringfieldHC (RBC) [Mass/Vol]32.7 g/dL31.9 - 36.5 g/dLOur Lady of Mercy Hospital - AndersonMCV (RBC) [Entitic vol]85.0 fL79.0 - 94.5 [facility] HospitalMonocytes (Bld) [#/Vol]0.66 10*3/uL0.24 - 0.93 K/uLOur Lady of Mercy Hospital - AndersonMonocytes/100 WBC (Bld)13.9 %[facility] AndersonNeutrophils (Bld) [#/Vol]2.16 10*3/uL1.57 - 6.19 K/uLOur Lady of Mercy Hospital - AndersonNucleated RBC/100 WBC (Bld) [Ratio]0.0 %[facility] Medical CenterPlatelet mean volume (Bld) [Entitic vol]9.3 fL8.7 - 12.3 [facility] HospitalPlatelets (Bld) [#/Vol]262 10*3/uL146 - 337 K/uLOur Lady of Mercy Hospital - AndersonRBC (Bld) [#/Vol]4.46 10*6/uLOhioHealth Dublin Methodist Hospitalegmented neutrophils/100 WBC (Bld)45.7 %[facility] CenterWBC (Bld) [#/Vol]4.74 10*3/uL3.73 - 10.10 K/uLOur Lady of Mercy Hospital - AndersonOSU [facility] CenterCHEM 6 (LYTES, BUN CREA)on 01-31-1123Psfwg gap [Moles/Vol]13 mmol/L7 - 17 mmol/[facility]onChloride [Moles/Vol]103 mmol/L98 - 108 mmol/[facility] CantonCO2 [Moles/Vol]22 mmol/L21 - 31 mmol/[facility] Creatinine [Mass/Vol]1.62 mg/dLHigh0.70 - 1.30 mg/dLOur Lady of [facility] eGFR, CKD-EPI, Elrg80Dmp- PINMercy Health Urbana HospitalInterpretation and review of laboratory resultsAbnoParkview Health Bryan HospitalPotassium [Moles/Vol]4.3 mmol/L3.5 - 5.0 mmol/[facility] Campusodium [Moles/Vol]134 mmol/LLow 135 - 145 mmol/[facility] CantonUrea nitrogen [Mass/Vol]22 mg/dL7 - 25 mg/dLOur Lady of Mercy Hospital - AndersonUrea nitrogen/Creatinine [Mass ratio]14 mg/mgOur Lady of Mercy Hospital - AndersonOSMercy Health Tiffin HospitalPortable XR Chest Viewson 18-89-1795Wqoxbavsg Study observation (narrative)OSMercy Health Tiffin Hospital Respiratory virus DNA+RNA ESTELITA+probe Nom (Unsp spec)Ordered By: Dayami Harris on 10-98-8868Brhpwshdzi DNA ESTELITA+probe Nom (Unsp spec)Not detectedNot DetectedOur Lady of Mercy Hospital - AndersonB. parapertussis DNA ESTELITA+probe Ql (Unsp spec)Not detected Not DetectedOSU [facility] CenterB. pertussis DNA ESTELITA+probe Ql (Unsp spec) Not detectedNot DetectedOSMercy Health Tiffin HospitalC. pneumoniae DNA ESTELITA+probe Ql (Unsp spec)Not detectedNot DetectedOSMercy Health Tiffin HospitalFLUAV RNA ESTELITA+probe Ql (Unsp spec)Not detectedNot DetectedOSU [facility] CenterFLUBV RNA ESTELITA+probe Ql (Unsp spec)Not detectedNot DetectedOSU [facility] CenterHCoV 229E RNA ESTELITA+non-probe Ql (Nph)Not detectedNot DetectedOSU [facility] HCoV HKU1 RNA ESTELITA+non-probe Ql (Nph)Not detectedNot DetectedOSU [facility] CenterHCoV NL63 RNA ESTELITA+non-probe Ql (Nph)Not detectedNot DetectedOSU [facility] CenterHCoV OC43 RNA ESTELITA+non-probe Ql (Nph)Not detectedNot DetectedOSU [facility] CenterhMPV A RNA ESTELITA+probe Ql (Unsp spec)Not detectedNot Detected [facility] CenterInterpretation and review of laboratory resultsNormal OSMercy Health Tiffin HospitalM. pneumoniae DNA ESTELITA+probe Ql (Unsp spec)Not detected Not DetectedOSU [facility] CenterParainfluenza virus 1 RNA ESTELITA+probe Ql (Unsp spec)Not detectedNot DetectedOSU [facility] CenterParainfluenza virus 2 RNA ESTELITA+probe Ql (Unsp spec)Not detectedNot DetectedOSU [facility] Parainfluenza virus 3 RNA ESTELITA+probe Ql (Unsp spec)Not detectedNot DetectedOSU [facility] CenterParainfluenza virus 4 RNA ESTELITA+probe Ql (Unsp spec)Not detectedNot DetectedOSU [facility] CenterRhinovirus+Enterovirus RNA ESTELITA+probe Ql (Unsp spec)Not detectedNot DetectedOSU [facility] CenterRSV RNA ESTELITA+probe Ql (Unsp spec)Not detectedNot DetectedOSU [facility] SARS-CoV-2 (COVID-19) RNA ESTELITA+probe Ql (Unsp spec)Not detectedNOT DETECTEDOSU [facility] CenterOSU [facility] CenterOSU [facility] CenterALBUMINon 35-96-6086Fciwqms [Mass/Vol]4.0 g/dLNormal3.4-5.0The [facility] CenterComment on above:Performed By: #### CMP #### [facility] [address] [place] [address] Dr. Dwight WatersALKALINE PHOSPHAon 66-50-5790NUB [Catalytic activity/Vol]106 U/L Myzmqr21-027Cfi [facility] CenterComment on above:Performed By: #### [id number] #### [facility] [address] [place] [address] Dr. Dwight WatersBILIRUBIN CONJUGATED (DIRECT)on 34-32-5814YPPD, CONJUGATED0.3 mg/dLCritically high0.0-0.2The [facility] CenterComment on above:Performed By: #### CMP #### [facility] [address] [place] [address] Dr. Dwight WatersBILIRUBIN TOTALon 96-29-1380Zoavhlthe [Mass/Vol]1.4 mg/dL Critically high0.2-1.0The [facility] CenterComment on above:Performed By: #### CMP #### [facility] [address] [place] [address] Dr. Dwight WatersBUBibi 79-67-3336Bkpp nitrogen [Mass/Vol]12.0 mg/dLNormal7.0-18.0 The [facility] CenterComment on above:Performed By: #### URTPCR #### [facility] [address] [place] [address] Dr. Dwight WatersCALCIUMon 99-21-4062Ogxoxdn [Mass/Vol]9.3 mg/dLNormal8.5-10.1The [facility] CenterComment on above:Performed By: #### URTPCR #### [facility] [address] [place] [address] Dr. Dwight WatersCBC AUTO DIFFon 49-31-4009RRPM #0.1 103/ulNormal0.0-0.1The [facility] CenterComment on above:Performed By: #### CBC #### [facility] [address] [place] [address] Dr. Dwight WatersBasophils/100 WBC (Bld)0.9 %Normal0.2-2.0[facility] Comment on above:Performed By: #### CBC #### [facility] [address] [place] [address] Dr. Dwight Hernandez #0.2 103/ulNormal0.0-0.7The [facility] CenterComment on above: Performed By: #### CBC #### [facility] [address] [place] [address] Dr. Dwight Chavezosinophils/100 WBC (Bld)3.8 %Normal0.9-7.0The [facility] Comment on above:Performed By: #### CBC #### [facility] [address] [place] [address] Dr. Dwight Chavezrythrocyte distribution width (RBC) [Ratio]12.5 %Rsfdlq34.0-15.0 The [facility] CenterComment on above:Performed By: #### CBC #### [facility] [address] [place] [address] Dr. Dwight WatersHematocrit (Bld) [Volume fraction]49.8 %Oejnro54.0-54.0The [facility] CenterComment on above:Performed By: #### CBC #### [facility] [address] [place] [address] Dr. Dwight WatersHemoglobin (Bld) [Mass/Vol]16.4 g/jXMocwhk51.0-18.0The [facility] Hamiltonment on above:Performed By: #### CBC #### [facility] [address] [place] [address] Dr. Dwight Russell #0.01 10e3/ulNormal0.00-0.03The [facility] CenterComment on above:Performed By: #### CBC #### [facility] [address] [place] [address] Dr. Dwight Russell %0.2 %Normal0.0-0.5The [facility] CenterComment on above: Performed By: #### CBC #### [facility] [address] [place] [address] Dr. Dwight Santana #2.1 103/ulNormal1.2-3.8The [facility] CenterComment on above:Performed By: #### CBC #### [facility] [address] [place] [address] Dr. Dwight Dickersonmphocytes/100 WBC (Bld)39.1 %Hrlqih00.5-60.0The [facility] CenterComment on above:Performed By: #### CBC #### [facility] [address] [place] [address] Dr. Dwight WinklerUAL DIFF REQNONormalThe [facility] CenterComment on above: Performed By: #### CBC #### [facility] [address] [place] [address] Dr. Dwight Florian (RBC) [Entitic mass]28.6 clXbghij73.9-34.0The [facility] CenterComment on above:Performed By: #### CBC #### [facility] [address] [place] [address] Dr. Dwight Florian (RBC) [Mass/Vol]32.9 g/kVFkylsk21.9-35.2The [facility] CenterComment on above:Performed By: #### CBC #### [facility] [address] [place] [address] Dr. Dwight Florian (RBC) [Entitic vol]86.9 zZZwiopm91.0-94.0The [facility] CenterComment on above:Performed By: #### CBC #### [facility] [address] [place] [address] Dr. Dwight Walsh #0.6 103/ulNormal0.3-0.8The [facility] CenterComment on above:Performed By: #### CBC #### [facility] [address] [place] [address] Dr. Dwight Alejandreocytes/100 WBC (Bld)10.6 %Normal1.7-12.0The [facility] Comment on above:Performed By: #### CBC #### [facility] [address] [place] [address] Dr. Dwight Moran #2.5 103/ulNormal1.4-6.5The [facility] CenterComment on above:Performed By: #### CBC #### [facility] [address] [address] [address] Dwight WatersNeutrophils/100 WBC (Bld)45.4 %Rgtzdp74.0-75.0The [facility] on above:Performed By: #### CBC #### [facility] [address] [place] [address] Dr. Dwight WatersPlatelet mean volume (Bld) [Entitic vol]9.3 fLCritically low 9.5-13.5The [facility] CenterComment on above:Performed By: #### CBC #### [facility] [address] [place] [address] Dr. Dwight WatersPLT248 103/wcXhegjd669-939Grt [facility] CenterComuniversity of [facility] on above: Performed By: #### CBC #### [facility] [address] [place] [address] Dr. Dwight WatersRBC5.73 106/ulNormal4.70-6.10The [facility] CenterComment on above:Performed By: #### CBC #### [facility] [address] [place] [address] Dr. Dwight WatersWBC5.5 103/ulNormal4.0-11.0The [facility] on above: Performed By: #### CBC #### [facility] [facility] [address] [place] [address] Dr. Dwight WatersCHLORIDEon 07-39-9161Xtjlwnna [Moles/Vol]107 mmol/BGmyilw44-819 The [facility] CenterComment on above:Performed By: #### URTPCR #### [facility] [address] [place] [address] Dr. Dwight WatersCO2on 14-57-9397JZ3 [Moles/Vol]28.9 mmol/KJfafgm26.0-32.0The [facility] CenterComun[facility] on above:Performed By: #### URTPCR #### [facility] [address] [place] [address] Dr. Dwight WatersCREATININEon 51-49-1091Guttkklrir [Mass/Vol]1.17 mg/dLNormal 0.70-1.30[facility] on above:Performed By: #### URTPCR #### [facility] [address] [place] [address] Dr. Dwight ChavezGFR-AF HAITIAN>60Normal>=60The [facility] on above:Performed By: #### URTPCR #### [facility] [address] [place] [address] Dr. Dwight ChavezGFR-NON AF HAITIAN>60Normal>=60[facility] on above:Performed By: #### URTPCR #### [facility] [address] [place] [address] Dr. Dwight WatersGGTon 36-60-0774Evsgf glutamyl transferase [Catalytic activity/Vol]27 U/ODcounl22-91NczSamaritan North Health [facility] on above:Performed By: #### URTPCR #### [facility] [address] [place] [address] Dr. Dwight WatersGLUCOSE BLOODon 62-16-1917Ppesdby [Mass/Vol]110 mg/dLCritically awit16-804Qut [facility] on above:Performed By: #### URTPCR #### [facility] [address] [place] [address] Dr. Dwight WatersMAGNESIUMon 79-15-6088Ueqeflfpd [Mass/Vol]1.7 mg/dLCritically low 1.8-2.4The [facility] on above:Performed By: #### URTPCR #### [facility] [address] [place] [address] Dr. Dwight WatersNAandrzej 58-99-4875Rcypej [Moles/Vol]144 mmol/HPjhpho926-105Igx[facility] on above:Performed By: #### URTPCR #### [facility] [address] [place] [address] Dr. Dwight WatersPHOSPHORUSon 09-31-1811Ghpaanjcg [Mass/Vol]3.2 mg/dLNormal2.6-4.7 The [facility] on above:Performed By: #### URTPCR #### [facility] [address] [place] [address] Dr. Dwight SolanoASSIUMon 32-80-8382Hmeevyyyn [Moles/Vol]4.0 mmol/LNormal 3.5-5.1The [facility] CenterComment on above:Performed By: #### URTPCR #### [facility] [address] [place] [address] Dr. Dwight Roland 20-60-3883EGK [Catalytic activity/Vol]25 U/TOpsphq88-17Tjb [facility] CenterComment on above:Performed By: #### CMP #### [facility] [address] [place] [address] Dr. Dwight You 74-35-6196RBA [Catalytic activity/Vol]40 U/HSmypoq54-53Kud [facility] CenterComment on above:Performed By: #### CMP #### [facility] [address] [place] [address] Dr. Dwight Velázquez T PROTEIN CREAT RATIOon 75-25-4543Tjevqaj (U) [Mass/Vol] 10.1 mg/dLNormal<=12.0The [facility] CenterComment on above:Performed By: #### URTPCR #### [facility] [address] [place] [address] Dr. Dwight Sanchez PROT CREAT RAT0.14NormalThe [facility] CenterComment on above: Performed By: #### URTPCR #### [facility] [address] [place] [address] Dr. Dwight Velázquez CREAT74.40 mg/gFRhkrzl32.00-300.00[facility] Comment on above:Performed By: #### URTPCR #### [facility] [address] [place] [address] Dr. Dwight CordovaK VIRUS PCR QUANTon 60-29-7750JTW DNA QUANT PCR PLASMANegative NormalNegativeThe [facility] CenterComment on above:Result Comment: No BK DNA detected. . The linear range of the assay is 22 - 100,000,000 IU/mL.Performed By: #### BKVIRUS #### [facility] [address] [place] [address] Dr. Dwight aWtersLog10 BKV DNA PlasmaNormalThe [facility] CenterComment on above: Performed By: #### BKVIRUS #### [facility] [address] [place] [address] Dr. Dwight WatersFK506 (TACROLIMUS) WHOLE BLOODon 58-53-4714Gyuutbfuch (FK506), Blood5.9 ng/mLNormal2.0-20.0The [facility] CenterComment on above:Result Comment: Trough (immediately following transplant) 15.0 . Trough (steady state, 2 weeks or more after transplant): 3.0 - 8.0 . Performed by LC-MS/MS technology.Performed By: #### CMP #### [facility] [address] [place] [address] Dr. Dwight WatersALBUMINon 61-04-4705Tozjovq [Mass/Vol]3.9 g/dLNormal3.4-5.0The [facility] CenterComment on above:Performed By: #### URTPCR #### [facility] [address] [place] [address] Dr. Dwight WatersALKALINE PHOSPHAon 94-54-1892XUG [Catalytic activity/Vol]105 U/L Ebdvxk92-946Yew [facility]ment on above:Performed By: #### URTPCR #### [facility] [address] [place] [address] Dr. Dwight WatersBILIRUBIN CONJUGATED (DIRECT)on 61-88-1122TPLW, CONJUGATED0.2 mg/dLNormal0.0-0.2The [facility] on above:Performed By: #### URTPCR #### [facility] [address] [place] [address] Dr. Dwight WatersBILIRUBIN TOTALon 67-69-8056Hpmoskagd [Mass/Vol]0.9 mg/dLNormal 0.2-1.0The [facility] CenterComment on above:Performed By: #### URTPCR #### [facility] [address] [place] [address] Dr. Dwight Antoine AUTO DIFFon 49-48-8593JXNL #0.1 103/ulNormal0.0-0.1The [facility] CenterComment on above:Performed By: #### CBC #### [facility] [address] [place] [address] Dr. Dwight WatersBasophils/100 WBC (Bld)0.9 %Normal0.2-2.0[facility] Comment on above:Performed By: #### CBC #### [facility] [address] [place] [address] Dr. Dwight Hernandez #0.2 103/ulNormal0.0-0.7The [facility] CenterComment on above: Performed By: #### CBC #### [facility] [address] [place] [address] Dr. Dwight Chavezosinophils/100 WBC (Bld)3.5 %Normal0.9-7.0[facility] Comment on above:Performed By: #### CBC #### [facility] [address] [place] [address] Dr. Dwight Chavezrythrocyte distribution width (RBC) [Ratio]12.7 %Crviqs52.0-15.0 The [facility] CenterComment on above:Performed By: #### CBC #### [facility] [address] [place] [address] Dr. Dwight WatersHematocrit (Bld) [Volume fraction]48.2 %Crahjr08.0-54.0The [facility] CenterComment on above:Performed By: #### CBC #### [facility] [address] [place] [address] Dr. Dwight WatersHemoglobin (Bld) [Mass/Vol]15.9 g/mMNwxwum26.0-18.0[facility] HospitalComment on above:Performed By: #### CBC #### [facility] [address] [place] [address] Dr. Dwight Russell #0.01 10e3/ulNormal0.00-0.03The [facility] CenterComment on above:Performed By: #### CBC #### [facility] [address] [place] [address] Dr. Dwight Russell %0.2 %Normal0.0-0.5The [facility] CenterComment on above: Performed By: #### CBC #### [facility] [address] [place] [address] Dr. Dwight Santana #2.1 103/ulNormal1.2-3.8The [facility] CenterComment on above:Performed By: #### CBC #### [facility] [address] [place] [address] Dr. Dwight Hoffmannhocytes/100 WBC (Bld)37.4 %Imkvpc02.5-60.0The [facility] CenterComment on above:Performed By: #### CBC #### [facility] [address] [place] [address] Dr. Dwight Frances DIFF REQNONormalThe [facility] CenterComment on above: Performed By: #### CBC #### [facility] [address] [place] [address] Dr. Dwight Caraballo (RBC) [Entitic mass]28.3 ocLljpiv73.9-34.0The [facility] CenterComment on above:Performed By: #### CBC #### [facility] [address] [place] [address] Dr. Dwight Florian (RBC) [Mass/Vol]33.0 g/cVPqvyzl10.9-35.2The [facility] CenterComment on above:Performed By: #### CBC #### [facility] [address] [place] [address] Dr. Dwight Florian (RBC) [Entitic vol]85.8 lOQcjuws72.0-94.0The [facility] CenterComment on above:Performed By: #### CBC #### [facility] [address] [place] [address] Dr. Yilan ChangMONO #0.6 103/ulNormal0.3-0.8The [facility] CenterComment on above:Performed By: #### CBC #### [facility] [address] [place] [address] Dr. Dwight Alejandreocytes/100 WBC (Bld)10.2 %Normal1.7-12.0The [facility] Comment on above:Performed By: #### CBC #### [facility] [address] [place] [address] Dr. Dwight Moran #2.7 103/ulNormal1.4-6.5The [facility] CenterComment on above:Performed By: #### CBC #### [facility] [address] [place] [address] Dr. Dwight Haroutrophils/100 WBC (Bld)47.8 %Alfezz82.0-75.0The [facility] CenterComment on above:Performed By: #### CBC #### [facility] [address] [place] [address] Dr. Dwight Rainey mean volume (Bld) [Entitic vol]9.3 fLCritically low 9.5-13.5The [facility] CenterComment on above:Performed By: #### CBC #### [facility] [address] [place] [address] Dr. Dwight WatersPLT241 103/fyLnwtps519-311Cmf [facility] CenterComment on above: Performed By: #### CBC #### [facility] [address] [place] [address] Dr. Dwight WatersRBC5.62 106/ulNormal4.70-6.10The [facility] CenterComment on above:Performed By: #### CBC #### [facility] [address] [place] [address] Dr. Dwight WatersWBC5.7 103/ulNormal4.0-11.0The [facility] CenterComment on above: Performed By: #### CBC #### [facility] [address] [place] [address] Dr. Dwight Gold 77-97-9436Yetyw glutamyl transferase [Catalytic activity/Vol]25 U/KNfpkft39-95Dpa [facility] CenterComment on above:Performed By: #### URTPCR #### [facility] [address] [place] [address] Dr. Dwight WatersMAGNESIUMon 90-87-8101Pakvxjnak [Mass/Vol]1.6 mg/dLCritically low 1.8-2.4The [facility] CenterComment on above:Performed By: #### URTPCR #### [facility] [address] [place] [address] Dr. Dwight WatersPHOSPHORUSon 65-46-4821Tucfjkeft [Mass/Vol]3.6 mg/dLNormal2.6-4.7 The [facility] CenterComment on above:Performed By: #### URTPCR #### [facility] [address] [place] [address] Dr. Dwight WatersPROF CHEM 8 (BAS METB)on 92-34-8367Blufy gap [Moles/Vol]9.4 mmol/LNormalThe [facility] CenterComment on above:Performed By: #### URTPCR #### [facility] [address] [place] [address] Dr. Dwight WatersCalcium [Mass/Vol]9.3 mg/dLNormal8.5-10.1The [facility] Comment on above:Performed By: #### URTPCR #### [facility] [address] [place] [address] Dr. Dwight WatersChloride [Moles/Vol]108 mmol/LCritically pygu95-896Lxg [facility] CenterComment on above:Performed By: #### URTPCR #### [facility] [address] [place] [address] Dr. Dwight WatersCO2 [Moles/Vol]27.2 mmol/RUvbiyz60.0-32.0The [facility] Comment on above:Performed By: #### URTPCR #### [facility] [address] [place] [address] Dr. Dwight WatersCreatinine [Mass/Vol]1.12 mg/dLNormal0.70-1.30The [facility] CenterComment on above:Performed By: #### URTPCR #### [facility] [address] [place] [address] Dr. Dwight ChavezGFR-AF HAITIAN>60Normal>=60The [facility] CenterComment on above:Performed By: #### URTPCR #### [facility] [address] [place] [address] Dr. Dwight ChavezGFR-NON AF HAITIAN>60Normal>=60The [facility] CenterComment on above:Performed By: #### URTPCR #### [facility] [address] [place] [address] Dr. Dwight WatersGlucose [Mass/Vol]113 mg/dLCritically lfyt95-291Oal [facility] CenterComment on above:Performed By: #### URTPCR #### [facility] [address] [place] [address] Dr. Dwight WatersPotassium [Moles/Vol]3.6 mmol/LNormal3.5-5.1The [facility] Comment on above:Performed By: #### URTPCR #### [facility] [address] [place] [address] Dr. Dwight Underwooddium [Moles/Vol]141 mmol/EKwnprn610-315Alt [facility] Comment on above:Performed By: #### URTPCR #### [facility] [address] [place] [address] Dr. Dwight WatersUrea nitrogen [Mass/Vol]14.0 mg/dLNormal7.0-18.0The [facility] CenterComment on above:Performed By: #### URTPCR #### [facility] [address] [place] [address] Dr. Dwight Jhaveri nitrogen/Creatinine [Mass ratio]12.5 mg/mgNormalThe [facility] CenterComment on above:Performed By: #### URTPCR #### [facility] [address] [place] [address] Dr. Dwight Roland 93-81-3071UOY [Catalytic activity/Vol]20 U/IVsofbn42-96Qca [facility] CenterComment on above:Performed By: #### URTPCR #### [facility] [address] [place] [address] Dr. Dwight You 71-15-7450IRA [Catalytic activity/Vol]30 U/DPtstgo18-87Tfe [facility] CenterComment on above:Performed By: #### URTPCR #### [facility] [address] [place] [address] Dr. Dwight Velázquez T PROTEIN CREAT RATIOon 42-44-5866Oiovkyf (U) [Mass/Vol] 10.3 mg/dLNormal<=12.0The [facility] CenterComment on above:Performed By: #### URTPCR #### [facility] [address] [place] [address] Dr. Dwight Sanchez PROT CREAT RAT0.15NormalThe [facility] CenterComment on above: Performed By: #### URTPCR #### [facility] [address] [place] [address] Dr. Dwight Velázquez CREAT68.96 mg/vJNdeweo11.00-300.00The [facility] Comment on above:Performed By: #### URTPCR #### [facility] [address] [place] [address] Dr. Dwight CordovaK VIRUS PCR QUANTon 65-40-1122HGU DNA QUANT PCR PLASMANegative NormalNegativeThe [facility] CenterComment on above:Result Comment: No BK DNA detected. . The linear range of the assay is 22 - 100,000,000 IU/mL.Performed By: #### CMP #### [facility] [address] [place] [address] Dr. Dwight WatersLog10 BKV DNA PlasmaNormalThe [facility] CenterComment on above: Performed By: #### CMP #### [facility] [address] [place] [address] Dr. Dwight WatersFK506 (TACROLIMUS) WHOLE BLOODon 43-87-5008Boxzfncvqe (FK506), Blood5.6 ng/mLNormal2.0-20.0The [facility] CenterComment on above:Result Comment: Trough (immediately following transplant) 15.0 . Trough (steady state, 2 weeks or more after transplant): 3.0 - 8.0 . Performed by LC-MS/MS technology.Performed By: #### CMP #### [facility] [address] [place] [address] Dr. Dwight WatersALKALINE PHOSPHAon 65-67-7749ZSQ [Catalytic activity/Vol]96 U/L Alcmgy83-822Jaz [facility] CenterComment on above:Performed By: #### CBC #### [facility] [address] [place] [address] Dr. Dwight WatersBILIRUBIN CONJUGATED (DIRECT)on 18-44-3845HUTP, CONJUGATED0.3 mg/dLCritically high0.0-0.2The [facility] CenterComment on above:Performed By: #### CBC #### [facility] [address] [place] [address] Dr. Dwight PatriciaIRUBIN TOTALon 42-06-3965Nobpndqld [Mass/Vol]1.1 mg/dL Critically high0.2-1.0The [facility] CenterComment on above:Performed By: #### CBC #### [facility] [address] [place] [address] Dr. Dwight PriceC AUTO DIFFon 68-11-7868INNM #0.1 103/ulNormal0.0-0.1The [facility] CenterComment on above:Performed By: #### CMP #### [facility] [address] [place] [address] Dr. Dwight WatersBasophils/100 WBC (Bld)0.8 %Normal0.2-2.0The [facility] Comment on above:Performed By: #### CMP #### [facility] [address] [place] [address] Dr. Quintanilla ChangERogelio #0.2 103/ulNormal0.0-0.7The [facility] CenterComment on above: Performed By: #### CMP #### [facility] [address] [address] [address] Dwight Chavezosinophils/100 WBC (Bld)3.0 %Normal0.9-7.0The [facility] Comment on above:Performed By: #### CMP #### [facility] [address] [place] [address] Dr. Dwight Chavezrythrocyte distribution width (RBC) [Ratio]12.9 %Iuhowm49.0-15.0 The [facility] CenterComment on above:Performed By: #### CMP #### [facility] [address] [place] [address] Dr. Dwight WatersHematocrit (Bld) [Volume fraction]46.9 %Memtzp81.0-54.0The [facility] CenterComment on above:Performed By: #### CMP #### [facility] [address] [place] [address] Dr. Dwight WatersHemoglobin (Bld) [Mass/Vol]16.1 g/lVAipkjb82.0-18.0The [facility] CenterComment on above:Performed By: #### CMP #### [facility] [address] [place] [address] Dr. Dwight WatersIG #0.01 10e3/ulNormal0.00-0.03The [facility] CenterComment on above:Performed By: #### CMP #### [facility] [address] [place] [address] Dr. Dwight WatersIG %0.2 %Normal0.0-0.5The [facility] on above: Performed By: #### CMP #### [facility] [address] [place] [address] Dr. Dwight DickersonMPH #1.8 103/ulNormal1.2-3.8The [facility] CenterComment on above:Performed By: #### CMP #### [facility] [address] [place] [address] Dr. Dwight Dickersonmphocytes/100 WBC (Bld)27.9 %Qawnmw40.5-60.0The [facility] CenterComment on above:Performed By: #### CMP #### [facility] [address] [place] [address] Dr. Dwight Frances DIFF REQNONormalThe [facility] CenterComment on above: Performed By: #### CMP #### [facility] [address] [place] [address] Dr. Dwight Florian (RBC) [Entitic mass]28.5 eoQqdmvi39.9-34.0The [facility] HospitalComment on above:Performed By: #### CMP #### [facility] [address] [place] [address] Dr. Dwight Florian (RBC) [Mass/Vol]34.3 g/vDUjibjc93.9-35.2The [facility] CenterComment on above:Performed By: #### CMP #### [facility] [address] [place] [address] Dr. Dwight Florian (RBC) [Entitic vol]83.2 oAXpicue02.0-94.0The [facility] CenterComment on above:Performed By: #### CMP #### [facility] [address] [place] [address] Dr. Dwight Walsh #0.5 103/ulNormal0.3-0.8The [facility] CenterComment on above:Performed By: #### CMP #### [facility] [address] [place] [address] Dr. Dwight Alejandreocytes/100 WBC (Bld)8.1 %Normal1.7-12.0The [facility] Comment on above:Performed By: #### CMP #### [facility] [address] [place] [address] Dr. Dwight Moran #3.8 103/ulNormal1.4-6.5The [facility] on above:Performed By: #### CMP #### [facility] [address] [place] [address] Dr. Dwight Haroutrophils/100 WBC (Bld)60.0 %Lkmcfd09.0-75.0The [facility] HospitalComment on above:Performed By: #### CMP #### [facility] [address] [address] [address] Dwight Bolanoslet mean volume (Bld) [Entitic vol]9.2 fLCritically low 9.5-13.5The [facility] on above:Performed By: #### CMP #### [facility] [address] [address] [address] Dwight WatersPLT225 103/rvGhwphw542-282Jdb [facility] CenterComment on above: Performed By: #### CMP #### [facility] [address] [place] [address] Dr. Dwight WatersRBC5.64 106/ulNormal4.70-6.10The [facility] CenterComment on above:Performed By: #### CMP #### [facility] [address] [place] [address] Dr. Dwight WatersWBC6.3 103/ulNormal4.0-11.0The [facility] CenterComment on above: Performed By: #### CMP #### [facility] [address] [place] [address] Dr. Dwight WatersGGTon 20-56-1152Tmrnm glutamyl transferase [Catalytic activity/Vol]24 U/JFhtwbw33-65PxlSam[facility]itan [facility] on above:Performed By: #### CMP #### [facility] [address] [place] [address] Dr. Dwight WatersLIPID PROFILEon 82-06-7837LUII-HDL RATIO NORMSEE [facility] Campus Medical CenterComment on above:Result Comment: 3.3 - 4.4 LOW RISK 4.4 - 7.1 AVERAGE RISK 7.1 - 11.0 MODERATE RISK >11.0 HIGH RISKPerformed By: #### URTPCR #### [facility] [address] [place] [address] Dr. Dwight WatersCholesterol [Mass/Vol]87 mg/dLNormal<=200[facility] Comment on above:Performed By: #### URTPCR #### [facility] [address] [address] [address] Dwight WatersCholesterol in HDL [Mass/Vol]44 mg/dACabhxc87-70Qio [facility] CenterComment on above:Performed By: #### URTPCR #### [facility] [address] [place] [address] Dr. Dwight WatersCholesterol in LDL [Mass/Vol]33.0 mg/dLNoAdams County Regional Medical CenterComment on above:Performed By: #### URTPCR #### [facility] [address] [place] [address] Dr. Dwight Irbyesterchelsey.total/Cholesterol in HDL [Mass ratio]2.0 {ratio} NormalThe [facility] CenterComment on above:Performed By: #### URTPCR #### [facility] [address] [place] [address] Dr. Dwight PintoL NORMAL> or = 60 mg/dl - LOW CARDIOVASCULAR RISK <40 mg/dl - HIGH CARDIOVASCULAR RISKNoAdams County Regional Medical CenterComment on above:Performed By: #### URTPCR #### [facility] [address] [place] [address] Dr. Dwight Cortes CALC NORMALSEE BELOWCleveland Clinic FoundationComment on above:Result Comment: <100 mg/dl OPTIMAL 100 - 129 mg/dl NEAR OR ABOVE OPTIMAL 130 - 159 mg/dl BORDERLINE HIGH 160 - 189 mg/dl HIGH >190 mg/dl VERY HIGH Performed By: #### URTPCR #### [facility] [address] [place] [address] Dr. Dwight WatersTriglyceride [Mass/Vol]50 mg/dLNormal<=150The [facility] Comment on above:Performed By: #### URTPCR #### [facility] [address] [place] [address] Dr. Dwight NicoleLDL CALC10.0 mg/dLNoAdams County Regional Medical CenterComment on above: Performed By: #### URTPCR #### [facility] [address] [place] [address] Dr. Dwgiht WatersMAGNESIUMon 62-73-7759Vwnmrpmyr [Mass/Vol]1.6 mg/dLCritically low 1.8-2.4The [facility] CenterComment on above:Performed By: #### CBC #### [facility] [address] [address] [address] Dwight WatersRENAL FUNCTION PANELon 33-98-5104Fwcsicz [Mass/Vol]3.9 g/dLNormal 3.4-5.0The [facility] CenterComment on above:Performed By: #### CBC #### [facility] [address] [address] [address] Dwight WatersCalcium [Mass/Vol]9.2 mg/dLNormal8.5-10.1The [facility] Comment on above:Performed By: #### CBC #### [facility] [address] [address] [address] Dwight WatersChloride [Moles/Vol]109 mmol/LCritically arnd48-754Ajw [facility] CenterComment on above:Performed By: #### CBC #### [facility] [address] [address] [address] Dwight WatersCO2 [Moles/Vol]27.0 mmol/RRhyvwj31.0-32.0The [facility] Comment on above:Performed By: #### CBC #### [facility] [address] [address] [address] Dwight WatersCreatinine [Mass/Vol]1.02 mg/dLNormal0.70-1.30The [facility] CenterComment on above:Performed By: #### CBC #### [facility] [address] [address] [address] Quintanilla ChangEGFR-AF HAITIAN>60Normal>=60The [facility] CenterComment on above:Performed By: #### CBC #### [facility] [address] [address] [address] Dwight ChavezGFR-NON AF HAITIAN>60Normal>=60The [facility] CenterComment on above:Performed By: #### CBC #### [facility] [address] [address] [address] Dwight WatersGlucose [Mass/Vol]117 mg/dLCritically jvjk90-179Wxg [facility] CenterComment on above:Performed By: #### CBC #### [facility] [address] [address] [address] Dwight WatersPhosphate [Mass/Vol]3.2 mg/dLNormal2.6-4.7The [facility] Comment on above:Performed By: #### CBC #### [facility] [address] [address] [address] Dwight WatersPotassium [Moles/Vol]4.1 mmol/LNormal3.5-5.1The [facility] Comment on above:Performed By: #### CBC #### [facility] [address] [address] [address] Dwight WatersSodium [Moles/Vol]144 mmol/LDwsbyj775-763Qie [facility] Comment on above:Performed By: #### CBC #### [facility] [address] [address] [address] Dwight WatersUrea nitrogen [Mass/Vol]13.0 mg/dLNormal7.0-18.0The [facility] CenterComment on above:Performed By: #### CBC #### [facility] [address] [place] [address] Dr. Dwight Roland 50-95-0536TRE [Catalytic activity/Vol]21 U/NGbjsnh53-38Qss [facility] CenterComment on above:Performed By: #### CBC #### [facility] [address] [place] [address] Dr. Dwight You 50-44-4986PXP [Catalytic activity/Vol]32 U/NUnonpb85-09Zip [facility] CenterComment on above:Performed By: #### CBC #### [facility] [address] [place] [address] Dr. Dwight Velázquez T PROTEIN CREAT RATIOon 63-51-9636Roiopua (U) [Mass/Vol] 14.3 mg/dLCritically high<=12.0The [facility] HospitalComment on above:Performed By: #### URTPCR #### [facility] [address] [place] [address] Dr. Dwight Sanchez PROT CREAT RAT0.17NormalThe [facility] CenterComment on above: Performed By: #### URTPCR #### [facility] [address] [place] [address] Dr. Dwight Velázquez CREAT86.58 mg/zRRioxhk93.00-300.00The [facility] Comment on above:Performed By: #### URTPCR #### [facility] [address] [place] [address] Dr. Dwight WatersFK506 (TACROLIMUS) WHOLE BLOODon 29-48-3348Cbttizygde (FK506), Blood4.9 ng/mLNormal2.0-20.0The [facility] CenterComment on above:Result Comment: Trough (immediately following transplant) 15.0 . Trough (steady state, 2 weeks or more after transplant): 3.0 - 8.0 . Performed by LC-MS/MS technology.Performed By: #### URTPCR #### [facility] [address] [place] [address] Dr. Dwight WatersALKALINE PHOSPHAon 65-83-0778VDK [Catalytic activity/Vol]86 U/L Idrlxo11-826Rqh [facility] CenterComment on above:Performed By: #### URTPCR #### [facility] [address] [place] [address] Dr. Dwight PatriciaIRUBIN CONJUGATED (DIRECT)on 54-89-0483MTNJ, CONJUGATED0.2 mg/dLNormal0.0-0.2The [facility] CenterComment on above:Performed By: #### URTPCR #### [facility] [address] [place] [address] Dr. Dwight PatriciaIRUBIN TOTALon 98-30-3451Wpdvhsmby [Mass/Vol]0.8 mg/dLNormal 0.2-1.0The [facility] CenterComment on above:Performed By: #### URTPCR #### [facility] [address] [place] [address] Dr. Dwight Antoine AUTO DIFFon 93-12-2849CFGZ #0.1 103/ulNormal0.0-0.1The [facility] CenterComment on above:Performed By: #### URTPCR #### [facility] [address] [place] [address] Dr. Dwight WaetrsBasophils/100 WBC (Bld)0.9 %Normal0.2-2.0The [facility] Comment on above:Performed By: #### URTPCR #### [facility] [address] [place] [address] Dr. Dwight Hernandez #0.2 103/ulNormal0.0-0.7The [facility] CenterComment on above: Performed By: #### URTPCR #### [facility] [address] [place] [address] Dr. Dwight Chavezosinophils/100 WBC (Bld)3.7 %Normal0.9-7.0The [facility] Comment on above:Performed By: #### URTPCR #### [facility] [address] [place] [address] Dr. Dwight Chavezrythrocyte distribution width (RBC) [Ratio]12.9 %Hxmmkn26.0-15.0 The [facility] CenterComment on above:Performed By: #### URTPCR #### [facility] [address] [place] [address] Dr. Dwight WatersHematocrit (Bld) [Volume fraction]48.3 %Acoywf47.0-54.0[facility] Community HospitalComment on above:Performed By: #### URTPCR #### [facility] [address] [place] [address] Dr. Dwight WatersHemoglobin (Bld) [Mass/Vol]15.6 g/qVEikgae95.0-18.0The [facility] CenterComment on above:Performed By: #### URTPCR #### [facility] [address] [place] [address] Dr. Dwight Russell #0.01 10e3/ulNormal0.00-0.03The [facility] CenterComment on above:Performed By: #### URTPCR #### [facility] [address] [place] [address] Dr. Dwight Russell %0.2 %Normal0.0-0.5The [facility] CenterComment on above: Performed By: #### URTPCR #### [facility] [address] [place] [address] Dr. Dwight Santana #1.9 103/ulNormal1.2-3.8The [facility] CenterComment on above:Performed By: #### URTPCR #### [facility] [address] [place] [address] Dr. Dwight Hoffmannhocytes/100 WBC (Bld)33.0 %Atxlkx54.5-60.0The [facility] CenterComment on above:Performed By: #### URTPCR #### [facility] [address] [place] [address] Dr. Dwight WinklerUAL DIFF REQNONormalThe [facility] CenterComment on above: Performed By: #### URTPCR #### [facility] [address] [place] [address] Dr. Dwight Caraballo (RBC) [Entitic mass]27.6 cpHyxqpg13.9-34.0The [facility] CenterComment on above:Performed By: #### URTPCR #### [facility] [address] [place] [address] Dr. Dwight Florian (RBC) [Mass/Vol]32.3 g/yIYgjyhr39.9-35.2The [facility] CenterComment on above:Performed By: #### URTPCR #### [facility] [address] [place] [address] Dr. Dwight Florian (RBC) [Entitic vol]85.5 oCXdelsd80.0-94.0The [facility] CenterComment on above:Performed By: #### URTPCR #### [facility] [address] [place] [address] Dr. Dwight Walsh #0.5 103/ulNormal0.3-0.8The [facility] CenterComment on above:Performed By: #### URTPCR #### [facility] [address] [place] [address] Dr. Dwight Alejandreocytes/100 WBC (Bld)8.8 %Normal1.7-12.0The [facility] Comment on above:Performed By: #### URTPCR #### [facility] [address] [place] [address] Dr. Dwight Moran #3.1 103/ulNormal1.4-6.5The [facility] CenterComment on above:Performed By: #### URTPCR #### [facility] [address] [place] [address] Dr. Dwight Haroutrophils/100 WBC (Bld)53.4 %Rltuqd22.0-75.0The [facility] CenterComment on above:Performed By: #### URTPCR #### [facility] [address] [place] [address] Dr. Dwight Bolanoslet mean volume (Bld) [Entitic vol]9.2 fLCritically low 9.5-13.5The [facility] CenterComment on above:Performed By: #### URTPCR #### [facility] [address] [place] [address] Dr. Dwight WatersPLT255 103/bxQrmxen163-801Zhe [facility] CenterComment on above: Performed By: #### URTPCR #### [facility] [address] [place] [address] Dr. Dwight WatersRBC5.65 106/ulNormal4.70-6.10The [facility] CenterComment on above:Performed By: #### URTPCR #### [facility] [address] [place] [address] Dr. Dwight WatersWBC5.7 103/ulNormal4.0-11.0The [facility] CenterComment on above: Performed By: #### URTPCR #### [facility] [address] [place] [address] Dr. Dwight WatersGGTon 65-33-1313Yyxtm glutamyl transferase [Catalytic activity/Vol]22 U/OFfcuay33-99Ahg [facility] CenterComment on above:Performed By: #### URTPCR #### [facility] [address] [place] [address] Dr. Dwight WatersMAGNESIUMon 86-71-0954Euraifhie [Mass/Vol]1.8 mg/dLNormal1.8-2.4 The [facility] CenterComment on above:Performed By: #### URTPCR #### [facility] [address] [place] [address] Dr. Dwight AmezcuaAL FUNCTION PANELon 20-49-0245Uaruofy [Mass/Vol]3.8 g/dLNormal 3.4-5.0The [facility] CenterComment on above:Performed By: #### URTPCR #### [facility] [address] [place] [address] Dr. Dwight WatersCalcium [Mass/Vol]9.3 mg/dLNormal8.5-10.1The [facility] Comment on above:Performed By: #### URTPCR #### [facility] [address] [place] [address] Dr. Dwight WatersChloride [Moles/Vol]107 mmol/WPambqo89-855Jlx [facility] Comment on above:Performed By: #### URTPCR #### [facility] [address] [place] [address] Dr. Dwight WatersCO2 [Moles/Vol]29.2 mmol/NKkrimd55.0-32.0The [facility] Comment on above:Performed By: #### URTPCR #### [facility] [address] [place] [address] Dr. Dwight WatersCreatinine [Mass/Vol]1.07 mg/dLNormal0.70-1.30The [facility] CenterComment on above:Performed By: #### URTPCR #### [facility] [address] [place] [address] Dr. Dwight ChavezGFR-AF HAITIAN>60Normal>=60The [facility] CenterComment on above:Performed By: #### URTPCR #### [facility] [address] [place] [address] Dr. Dwight ChavezGFR-NON AF HAITIAN>60Normal>=60The [facility] CenterComment on above:Performed By: #### URTPCR #### [facility] [address] [place] [address] Dr. Dwight WatersGlucose [Mass/Vol]106 mg/sCExoyqt24-723Kqz [facility] Comment on above:Performed By: #### URTPCR #### [facility] [address] [place] [address] Dr. Dwight WatersPhosphate [Mass/Vol]2.8 mg/dLNormal2.6-4.7The [facility] Comment on above:Performed By: #### URTPCR #### [facility] [address] [place] [address] Dr. Dwight WatersPotassium [Moles/Vol]4.1 mmol/LNormal3.5-5.1The [facility] Comment on above:Performed By: #### URTPCR #### [facility] [address] [place] [address] Dr. Dwight WatersSodium [Moles/Vol]143 mmol/JUtshcz738-792Uqf [facility] Comment on above:Performed By: #### URTPCR #### [facility] [address] [place] [address] Dr. Dwight WatersUrea nitrogen [Mass/Vol]12.0 mg/dLNormal7.0-18.0The [facility] CenterComment on above:Performed By: #### URTPCR #### [facility] [address] [place] [address] Dr. Dwight Roland 88-32-8404VRW [Catalytic activity/Vol]19 U/EBgzvqg77-33Mel [facility] CenterComment on above:Performed By: #### URTPCR #### [facility] [address] [address] [address] Dwight You 01-87-0158ZBW [Catalytic activity/Vol]28 U/IDfstkv44-51Sni [facility] CenterComment on above:Performed By: #### URTPCR #### [facility] [address] [place] [address] Dr. Dwight Velázquez T PROTEIN CREAT RATIOon 13-18-0988Hivybap (U) [Mass/Vol] 10.7 mg/dLNormal<=12.0The [facility] CenterComment on above:Performed By: #### URTPCR #### [facility] [address] [place] [address] Dr. Dwight Sanchez PROT CREAT RAT0.13NormalThe [facility] CenterComment on above: Performed By: #### URTPCR #### [facility] [address] [place] [address] Dr. Dwight Velázquez CREAT84.50 mg/zEDaypbp27.00-300.00The [facility] Comment on above:Performed By: #### URTPCR #### [facility] [address] [place] [address] Dr. Dwight WatersFK506 (TACROLIMUS) WHOLE BLOODon 36-21-6545Urdpxhyhhv (FK506), Blood4.6 ng/mLNormal2.0-20.0The [facility] CenterComment on above:Result Comment: Trough (immediately following transplant) 15.0 . Trough (steady state, 2 weeks or more after transplant): 3.0 - 8.0 . Performed by LC-MS/MS technology.Performed By: #### URTPCR #### [facility] [address] [place] [address] Dr. Dwight WatersBK VIRUS PCR QUANTon 71-27-8144FWN DNA QUANT PCR PLASMANegative NormalNegativeThe [facility] CenterComment on above:Result Comment: No BK DNA detected. . The linear range of the assay is 22 - 100,000,000 IU/mL.Performed By: #### URTPCR #### [facility] [address] [place] [address] Dr. Dwight WatersLog10 BKV DNA PlasmaNormalThe [facility] CenterComment on above: Performed By: #### URTPCR #### [facility] [address] [place] [address] Dr. Dwight WatersALKALINE PHOSPHAon 74-84-0259QMV [Catalytic activity/Vol]92 U/L Slsots03-662Bhr [facility] CenterComment on above:Performed By: #### URTPCR #### [facility] [address] [place] [address] Dr. Dwight WatersBILIRUBIN CONJUGATED (DIRECT)on 80-46-7486LBQM, CONJUGATED0.3 mg/dLCritically high0.0-0.2The [facility] CenterComment on above:Performed By: #### URTPCR #### [facility] [address] [place] [address] Dr. Dwight WatersBILIRUBIN TOTALon 79-39-4983Rvpgyhidb [Mass/Vol]1.1 mg/dL Critically high0.2-1.0The [facility] CenterComment on above:Performed By: #### URTPCR #### [facility] [address] [place] [address] Dr. Dwight WatersCBC AUTO DIFFon 83-49-2369MWMI #0.1 103/ulNormal0.0-0.1The [facility] CenterComment on above:Performed By: #### CBC #### [facility] [address] [place] [address] Dr. Dwight WatersBasophils/100 WBC (Bld)0.8 %Normal0.2-2.0The [facility] Comment on above:Performed By: #### CBC #### [facility] [address] [place] [address] Dr. Dwight Hernandez #0.2 103/ulNormal0.0-0.7The [facility] CenterComment on above: Performed By: #### CBC #### [facility] [address] [place] [address] Dr. Dwight Chavezosinophils/100 WBC (Bld)3.5 %Normal0.9-7.0The [facility] Comment on above:Performed By: #### CBC #### [facility] [address] [place] [address] Dr. Dwight Chavezrythrocyte distribution width (RBC) [Ratio]13.0 %Mwaeim68.0-15.0 The [facility] CenterComment on above:Performed By: #### CBC #### [facility] [address] [place] [address] Dr. Dwight WatersHematocrit (Bld) [Volume fraction]50.0 %Exzoxn78.0-54.0The [facility] CenterComment on above:Performed By: #### CBC #### [facility] [address] [place] [address] Dr. Dwihgt WatersHemoglobin (Bld) [Mass/Vol]16.0 g/uWVxgewi67.0-18.0The [facility] CenterComment on above:Performed By: #### CBC #### [facility] [address] [place] [address] Dr. Dwight Russell #0.02 10e3/ulNormal0.00-0.03The [facility] CenterComment on above:Performed By: #### CBC #### [facility] [address] [place] [address] Dr. Dwight Russell %0.3 %Normal0.0-0.5The [facility] CenterComment on above: Performed By: #### CBC #### [facility] [address] [place] [address] Dr. Dwight HoffmannH #1.8 103/ulNormal1.2-3.8The [facility] CenterComment on above:Performed By: #### CBC #### [facility] [address] [place] [address] Dr. Dwight Dickersonmphocytes/100 WBC (Bld)26.5 %Oejsep63.5-60.0The [facility] CenterComment on above:Performed By: #### CBC #### [facility] [address] [place] [address] Dr. Dwight Frances DIFF REQNONormalThe [facility] CenterComment on above: Performed By: #### CBC #### [facility] [address] [place] [address] Dr. Dwight Florian (RBC) [Entitic mass]28.1 ueFshkxw23.9-34.0The [facility] HospitalComment on above:Performed By: #### CBC #### [facility] [address] [place] [address] Dr. Dwight Florian (RBC) [Mass/Vol]32.0 g/fJYdraxb47.9-35.2The [facility] HospitalComment on above:Performed By: #### CBC #### [facility] [address] [place] [address] Dr. Dwight Florian (RBC) [Entitic vol]87.9 aUWltynk74.0-94.0The [facility] CenterComment on above:Performed By: #### CBC #### [facility] [address] [place] [address] Dr. Dwight Walsh #0.5 103/ulNormal0.3-0.8The [facility] CenterComment on above:Performed By: #### CBC #### [facility] [address] [place] [address] Dr. Dwight Alejandreocytes/100 WBC (Bld)8.1 %Normal1.7-12.0The [facility] Comment on above:Performed By: #### CBC #### [facility] [address] [place] [address] Dr. Dwight Moran #4.0 103/ulNormal1.4-6.5The [facility] CenterComment on above:Performed By: #### CBC #### [facility] [address] [place] [address] Dr. Dwight Haroutrophils/100 WBC (Bld)60.8 %Aimhck92.0-75.0The [facility] CenterComment on above:Performed By: #### CBC #### [facility] [address] [place] [address] Dr. Dwight Bolanoslet mean volume (Bld) [Entitic vol]9.4 fLCritically low 9.5-13.5The [facility] CenterComment on above:Performed By: #### CBC #### [facility] [address] [place] [address] Dr. Dwight WatersPLT265 103/fjGuvmye878-944Kln [facility] CenterComment on above: Performed By: #### CBC #### [facility] [address] [place] [address] Dr. Dwight WatersRBC5.69 106/ulNormal4.70-6.10The [facility] CenterComment on above:Performed By: #### CBC #### [facility] [address] [place] [address] Dr. Dwight WatersWBC6.6 103/ulNormal4.0-11.0The [facility] Hamiltonment on above: Performed By: #### CBC #### [facility] [address] [place] [address] Dr. Dwight WatersGGTon 19-26-9121Ylxxm glutamyl transferase [Catalytic activity/Vol]23 U/WUjdsds92-78Lgm [facility] on above:Performed By: #### URTPCR #### [facility] [address] [place] [address] Dr. Dwight WatersMAGNESIUMon 01-43-3509Oigoagzbe [Mass/Vol]1.8 mg/dLNormal1.8-2.4 The [facility] CenterComment on above:Performed By: #### URTPCR #### [facility] [address] [place] [address] Dr. Dwight WatersRENAL FUNCTION PANELon 06-05-7147Oqtghxq [Mass/Vol]4.1 g/dLNormal 3.4-5.0The [facility] CenterComun[facility] on above:Performed By: #### CBC #### [facility] [address] [place] [address] Dr. Dwight WatersCalcium [Mass/Vol]9.3 mg/dLNormal8.5-10.1The [facility] Comment on above:Performed By: #### CBC #### [facility] [address] [address] [address] Dwight WatersChloride [Moles/Vol]107 mmol/LTicnds00-094IyoHarrison Community Hospital Comment on above:Performed By: #### CBC #### [facility] [address] [address] [address] Dwight WatersCO2 [Moles/Vol]25.6 mmol/UZcaibu46.0-32.0[facility] Comment on above:Performed By: #### CBC #### [facility] [address] [address] [address] Dwight WatersCreatinine [Mass/Vol]1.01 mg/dLNormal0.70-1.30[facility] HospitalComment on above:Performed By: #### CBC #### [facility] [address] [address] [address] wDight ChavezGFR-AF HAITIAN>60Normal>=60The [facility] CenterComment on above:Performed By: #### CBC #### [facility] [address] [address] [address] Dwight ChavezGFR-NON AF HAITIAN>60Normal>=60[facility] HospitalComment on above:Performed By: #### CBC #### [facility] [address] [address] [address] Dwight WatersGlucose [Mass/Vol]119 mg/dLCritically oeus72-374Qaa [facility] CenterComment on above:Performed By: #### CBC #### [facility] [address] [address] [address] Dwight WatersPhosphate [Mass/Vol]2.8 mg/dLNormal2.6-4.7The [facility] Comment on above:Performed By: #### CBC #### [facility] [address] [address] [address] Dwight WatersPotassium [Moles/Vol]4.0 mmol/LNormal3.5-5.1[facility] Comment on above:Performed By: #### CBC #### [facility] [address] [address] [address] Dwight Underwooddium [Moles/Vol]141 mmol/FZvwvdj183-271Top [facility] Comment on above:Performed By: #### CBC #### [facility] [address] [address] [address] Dwight WatersUrea nitrogen [Mass/Vol]15.0 mg/dLNormal7.0-18.0The [facility] CenterComment on above:Performed By: #### CBC #### [facility] [address] [place] [address] Dr. Dwight Roland 70-71-8109FBP [Catalytic activity/Vol]18 U/QBfgafr51-68Kqw [facility] CenterComment on above:Performed By: #### URTPCR #### [facility] [address] [place] [address] Dr. Dwight You 86-34-1756AIV [Catalytic activity/Vol]32 U/WViagzc50-34Flx [facility] CenterComment on above:Performed By: #### CBC #### [facility] [address] [place] [address] Dr. wDight Velázquez T PROTEIN CREAT RATIOon 37-84-6415Lglnwtz (U) [Mass/Vol] 14.1 mg/dLCritically high<=12.0The [facility] CenterComment on above:Performed By: #### URTPCR #### [facility] [address] [place] [address] Dr. Dwight Sanchez PROT CREAT RAT0.14NormalThe [facility] CenterComment on above: Performed By: #### URTPCR #### [facility] [address] [place] [address] Dr. Dwight Veálzquez CREAT98.89 mg/nEEtlcvc80.00-300.00The [facility] Comment on above:Performed By: #### URTPCR #### [facility] [address] [place] [address] Dr. Dwight Abdalla CAROTID ART BILon 76-64-9935WV CAROTID ART BILEXAMINATION: US CAROTID ART ROSALINDA HISTORY: Cardiovascular symptoms [...] Electronically authenticated by: MÓNICA JIMENEZ Date: 2022-08-28 13:20NoAdams County Regional Medical CenterFK506 (TACROLIMUS) WHOLE BLOODon 32-60-9098Mwbztucaso (FK506), Blood9.9 ng/mLNormal2.0-20.0The [facility] on above:Result Comment: Trough (immediately following transplant) 15.0 . Trough (steady state, 2 weeks or more after transplant): 3.0 - 8.0 . Performed by LC-MS/MS technology.Performed By: #### [id number] #### [facility] [address] [place] [address] Dr. Dwight WatersBK VIRUS PCR QUANTon 38-25-0929CHI DNA QUANT PCR PLASMANegative NormalNegativeThe [facility] on above:Result Comment: No BK DNA detected. . The linear range of the assay is 22 - 100,000,000 IU/mL.Performed By: #### URTPCR #### [facility] [address] [place] [address] Dr. Dwight WatersLog10 BKV DNA PlasmaNoAdams County Regional Medical CenterComment on above: Performed By: #### URTPCR #### [facility] [address] [place] [address] Dr. Dwight WatersALBUMINon 36-95-1814Ylzvyfg [Mass/Vol]4.2 g/dLNormal3.4-5.0The [facility] on above:Performed By: #### [id number] #### [facility] [address] [place] [address] Dr. Dwight WatersALKALINE PHOSPHAon 64-87-6245BQB [Catalytic activity/Vol]92 U/L Zglhud94-868Nci [facility] CenterComment on above:Performed By: #### CBC #### [facility] [address] [place] [address] Dr. Dwight WatersBILIRUBIN CONJUGATED (DIRECT)on 21-17-2652AEAG, CONJUGATED0.3 mg/dLCritically high0.0-0.2The [facility] CenterComment on above:Performed By: #### [id number] #### [facility] [address] [place] [address] Dr. Dwight WatersBILIRUBIN TOTALon 95-41-2414Fbninozis [Mass/Vol]1.5 mg/dL Critically high0.2-1.0The [facility] CenterComment on above:Performed By: #### [id number] #### [facility] [address] [place] [address] Dr. Dwight WatersBUBibi 37-48-4947Zsvd nitrogen [Mass/Vol]11.0 mg/dLNormal7.0-18.0 The [facility] CenterComment on above:Performed By: #### CBC #### [facility] [address] [place] [address] Dr. Dwight WatersCALCIUMon 27-17-4513Shlkyso [Mass/Vol]9.4 mg/dLNormal8.5-10.1The [facility] CenterComment on above:Performed By: #### [id number] #### [facility] [address] [place] [address] Dr. Dwight PriceC AUTO DIFFon 76-89-5475MDEX #0.0 103/ulNormal0.0-0.1The [facility] CenterComment on above:Performed By: #### CMP #### [facility] [address] [place] [address] Dr. Dwight WatersBasophils/100 WBC (Bld)0.5 %Normal0.2-2.0The [facility] Comment on above:Performed By: #### CMP #### [facility] [address] [place] [address] Dr. Quintanilla ChangEO #0.2 103/ulNormal0.0-0.7The [facility] CenterComment on above: Performed By: #### CMP #### [facility] [address] [place] [address] Dr. Dwight Chavezosinophils/100 WBC (Bld)2.6 %Normal0.9-7.0The [facility] on above:Performed By: #### CMP #### [facility] [address] [place] [address] Dr. Dwight Chavezrythrocyte distribution width (RBC) [Ratio]13.1 %Vovnqa86.0-15.0 The [facility] CenterComment on above:Performed By: #### CMP #### [facility] [address] [place] [address] Dr. Dwight WatersHematocrit (Bld) [Volume fraction]47.0 %Mqlweb39.0-54.0The [facility] CenterComment on above:Performed By: #### CMP #### [facility] [address] [place] [address] Dr. Dwihgt WatersHemoglobin (Bld) [Mass/Vol]15.3 g/sHDvnrgh15.0-18.0The [facility] CenterComment on above:Performed By: #### CMP #### [facility] [address] [place] [address] Dr. Dwight Russell #0.01 10e3/ulNormal0.00-0.03The [facility] CenterComment on above:Performed By: #### CMP #### [facility] [address] [place] [address] Dr. Dwight Russell %0.1 %Normal0.0-0.5The [facility] CenterComment on above: Performed By: #### CMP #### [facility] [address] [place] [address] Dr. Dwight HoffmannH #2.3 103/ulNormal1.2-3.8The [facility] CenterComment on above:Performed By: #### CMP #### [facility] [address] [place] [address] Dr. Yilan ChangLymphocytes/100 WBC (Bld)29.8 %Ujodja22.5-60.0The [facility] CenterComment on above:Performed By: #### CMP #### [facility] [address] [place] [address] Dr. Dwight Frances DIFF REQNONormalThe [facility] CenterComment on above: Performed By: #### CMP #### [facility] [address] [place] [address] Dr. Dwight Florian (RBC) [Entitic mass]28.2 jkZxmaio24.9-34.0The [facility] CenterComment on above:Performed By: #### CMP #### [facility] [address] [place] [address] Dr. Dwight Florian (RBC) [Mass/Vol]32.6 g/yBKbeiov15.9-35.2The [facility] CenterComment on above:Performed By: #### CMP #### [facility] [address] [place] [address] Dr. Dwight Florian (RBC) [Entitic vol]86.7 mUBecota28.0-94.0The [facility] CenterComment on above:Performed By: #### CMP #### [facility] [address] [place] [address] Dr. Dwight Walsh #0.7 103/ulNormal0.3-0.8The [facility] CenterComment on above:Performed By: #### CMP #### [facility] [address] [place] [address] Dr. Dwight Alejandreocytes/100 WBC (Bld)8.5 %Normal1.7-12.0The [facility] Comment on above:Performed By: #### CMP #### [facility] [address] [place] [address] Dr. Dwight Moran #4.5 103/ulNormal1.4-6.5The [facility] CenterComment on above:Performed By: #### CMP #### [facility] [address] [place] [address] Dr. Yilan ChangNeutrophils/100 WBC (Bld)58.5 %Ssvglv81.0-75.0[facility] HospitalComment on above:Performed By: #### CMP #### [facility] [address] [place] [address] Dr. Dwight Bolanoslet mean volume (Bld) [Entitic vol]9.7 fLNormal9.5-13.5The [facility] CenterComment on above:Performed By: #### CMP #### [facility] [address] [place] [address] Dr. Dwight WatersPLT266 103/oqNzoulg335-988BydHarrison Community HospitalComuniversity of [facility] on above: Performed By: #### CMP #### [facility] [address] [place] [address] Dr. Dwight WatersRBC5.42 106/ulNormal4.70-6.10The [facility] CenterComment on above:Performed By: #### CMP #### [facility] [address] [place] [address] Dr. Dwight WatersWBC7.6 103/ulNormal4.0-11.0The [facility] CenterComment on above: Performed By: #### CMP #### [facility] [address] [place] [address] Dr. Dwight WatersCHLORIDEon 15-23-7475Zibrwpem [Moles/Vol]104 mmol/NKrziir46-210 The [facility] CenterComment on above:Performed By: #### CBC #### [facility] [address] [place] [address] Dr. Dwight WatersCO2on 45-88-3920WP9 [Moles/Vol]27.9 mmol/GIgntcp49.0-32.0The [facility] CenterComment on above:Performed By: #### CBC #### [facility] [address] [place] [address] Dr. Dwight WatersCREATININEon 56-21-3817Xnhrgrcyey [Mass/Vol]1.08 mg/dLNormal 0.70-1.30The [facility] CenterComment on above:Performed By: #### CBC #### [facility] [address] [place] [address] Dr. Quintanilla ChangEGFR-AF HAITIAN>60Normal>=60The [facility] CenterComment on above:Performed By: #### CBC #### [facility] [address] [place] [address] Dr. Quintanilla ChangEGFR-NON AF HAITIAN>60Normal>=60The [facility] CenterComment on above:Performed By: #### CBC #### [facility] [address] [place] [address] Dr. Dwight WatersGGTon 16-42-3787Vzwvo glutamyl transferase [Catalytic activity/Vol]24 U/NRgcjfm61-07Yaf [facility] on above:Performed By: #### [id number] #### [facility] [address] [place] [address] Dr. Dwight WatersGLUCOSE BLOODon 24-69-9317Nsyccre [Mass/Vol]111 mg/dLCritically qgat75-117Lnw [facility] CenterComment on above:Performed By: #### CBC #### [facility] [address] [place] [address] Dr. Dwight WatersMAGNESIUMon 34-59-5697Jgcfesovl [Mass/Vol]1.4 mg/dLCritically low 1.8-2.4The [facility] on above:Performed By: #### CBC #### [facility] [address] [place] [address] Dr. Dwight WatersNAon 04-65-8338Cxdlnf [Moles/Vol]140 mmol/POabtav470-028Ych [facility] on above:Performed By: #### [id number] #### [facility] [address] [place] [address] Dr. Dwight WatersPHOSPHORUSon 69-44-5505Badtjraal [Mass/Vol]3.1 mg/dLNormal2.6-4.7 The [facility] CenterComment on above:Performed By: #### CBC #### [facility] [address] [place] [address] Dr. Dwight SolanoASSIUMon 50-45-7053Cfuadvzeo [Moles/Vol]3.5 mmol/LNormal 3.5-5.1The [facility] CenterComment on above:Performed By: #### CBC #### [facility] [address] [place] [address] Dr. Dwight PetersenOToamanda 24-24-2315SSL [Catalytic activity/Vol]17 U/YNvcusp28-11Gxu [facility] CenterComment on above:Performed By: #### [id number] #### [facility] [address] [place] [address] Dr. Dwight PetersenPTon 07-92-3441RDM [Catalytic activity/Vol]22 U/PKfuhlk66-47Ehq [facility] CenterComment on above:Performed By: #### [id number] #### [facility] [address] [place] [address] Dr. Dwight Velázquez T PROTEIN CREAT RATIOon 29-13-6246Norgcdb (U) [Mass/Vol] 10.7 mg/dLNormal<=12.0The [facility] CenterComment on above:Performed By: #### [id number] #### [facility] [address] [place] [address] Dr. Dwight Sanchez PROT CREAT RAT0.10NormalThe [facility] CenterComment on above: Performed By: #### [id number] #### [facility] [address] [place] [address] Dr. Dwight Velázquez ODGQQ258.28 mg/cQNygepb66.00-300.00The [facility] Comment on above:Performed By: #### [id number] #### [facility] [address] [place] [address] Dr. Dwight HaroPHROSTOMY TUBE REMOVALon 11-52-3442Ptwoicharlette Yepez MD 07/07/2022 3:45 PM NEPHROSTOMY TUBE [...] patient. Assisting physician present for entire procedure: [facility] CenterRad[facility] observation (narrative)[facility]FK[facility] ([facility]CROLIM[facility]) WHOLE BLOODon 38-97-9126Bpwputjtfw (FK506), Blood9.5 ng/mLNormal2.0-20.0The [facility] CenterComment on above:Result Comment: Trough (immediately following transplant) 15.0 . Trough (steady state, 2 weeks or more after transplant): 3.0 - 8.0 . Performed by LC-MS/MS technology.Performed By: #### CMP #### [facility] [address] [place] [address] Dr. Dwight WatersALBUMINon 27-54-0511Eyningn [Mass/Vol]3.7 g/dLNormal3.4-5.0The [facility] CenterComment on above:Performed By: #### URTPCR #### [facility] [address] [place] [address] Dr. Dwight WatersALKALINE PHOSPHAon 03-92-2634OUV [Catalytic activity/Vol]76 U/L Tbjlob67-596Cgj [facility] CenterComment on above:Performed By: #### URTPCR #### [facility] [address] [place] [address] Dr. Dwight PatriciaIRUBIN CONJUGATED (DIRECT)on 53-68-1882TNWV, CONJUGATED0.3 mg/dLCritically high0.0-0.2The [facility] CenterComment on above:Performed By: #### CBC #### [facility] [address] [place] [address] Dr. Dwight WatersBILIRUBIN TOTALon 56-83-4641Pquuwzfrn [Mass/Vol]1.4 mg/dL Critically high0.2-1.0The [facility] HospitalComment on above:Performed By: #### CBC #### [facility] [address] [place] [address] Dr. Dwight Cornejo 17-08-4803Labv nitrogen [Mass/Vol]15.0 mg/dLNormal7.0-18.0 The [facility] CenterComment on above:Performed By: #### CBC #### [facility] [address] [place] [address] Dr. Dwight WatersCALCIUMon 07-48-2855Sytfjoo [Mass/Vol]9.4 mg/dLNormal8.5-10.1The [facility] CenterComment on above:Performed By: #### URTPCR #### [facility] [address] [place] [address] Dr. Dwight PriceC AUTO DIFFon 62-41-9200SHXC #0.0 103/ulNormal0.0-0.1The [facility] CenterComment on above:Performed By: #### URTPCR #### [facility] [address] [place] [address] Dr. Dwight WatersBasophils/100 WBC (Bld)0.6 %Normal0.2-2.0The [facility] Comment on above:Performed By: #### URTPCR #### [facility] [address] [place] [address] Dr. Quintanilla ChangERogelio #0.2 103/ulNormal0.0-0.7The [facility] CenterComment on above: Performed By: #### URTPCR #### [facility] [address] [place] [address] Dr. Dwight Chavezosinophils/100 WBC (Bld)3.5 %Normal0.9-7.0The [facility] Comment on above:Performed By: #### URTPCR #### [facility] [address] [place] [address] Dr. Dwight Chavezrythrocyte distribution width (RBC) [Ratio]12.9 %Ekbjhi37.0-15.0 The [facility] CenterComment on above:Performed By: #### URTPCR #### [facility] [address] [place] [address] Dr. Dwight WatersHematocrit (Bld) [Volume fraction]44.2 %Dzbete53.0-54.0The [facility] on above:Performed By: #### URTPCR #### [facility] [address] [place] [address] Dr. Dwight WatersHemoglobin (Bld) [Mass/Vol]14.6 g/sUMxwxwi68.0-18.0The [facility] on above:Performed By: #### URTPCR #### [facility] [address] [place] [address] Dr. Dwight Russell #0.02 10e3/ulNormal0.00-0.03The [facility] on above:Performed By: #### URTPCR #### [facility] [address] [place] [address] Dr. Dwight Russell %0.3 %Normal0.0-0.5The [facility] on above: Performed By: #### URTPCR #### [facility] [address] [place] [address] Dr. Dwight HoffmannH #2.0 103/ulNormal1.2-3.8The [facility] on above:Performed By: #### URTPCR #### [facility] [address] [place] [address] Dr. Dwight Dickersonmphocytes/100 WBC (Bld)28.4 %Nupkfh69.5-60.0The [facility] HospitalComment on above:Performed By: #### URTPCR #### [facility] [address] [place] [address] Dr. Dwight Frances DIFF REQNONormalThe [facility] CenterComment on above: Performed By: #### URTPCR #### [facility] [address] [place] [address] Dr. Dwight Florian (RBC) [Entitic mass]28.6 jsGomfvt18.9-34.0The [facility] HospitalComment on above:Performed By: #### URTPCR #### [facility] [address] [place] [address] Dr. Dwight Florian (RBC) [Mass/Vol]33.0 g/hTUzjuff41.9-35.2The [facility] CenterComment on above:Performed By: #### URTPCR #### [facility] [address] [place] [address] Dr. Dwight Centeno (RBC) [Entitic vol]86.7 cRZzzlxk64.0-94.0The [facility] CenterComment on above:Performed By: #### URTPCR #### [facility] [address] [place] [address] Dr. Dwight Walsh #0.6 103/ulNormal0.3-0.8The [facility] CenterComment on above:Performed By: #### URTPCR #### [facility] [address] [place] [address] Dr. Dwight Alejandreocytes/100 WBC (Bld)9.1 %Normal1.7-12.0The [facility] Comment on above:Performed By: #### URTPCR #### [facility] [address] [place] [address] Dr. Dwight Moran #4.0 103/ulNormal1.4-6.5The [facility] CenterComment on above:Performed By: #### URTPCR #### [facility] [address] [place] [address] Dr. Yilan ChangNeutrophils/100 WBC (Bld)58.1 %Akqtoj84.0-75.0The [facility] CenterComment on above:Performed By: #### URTPCR #### [facility] [address] [place] [address] Dr. Dwight Bolanoslet mean volume (Bld) [Entitic vol]9.5 fLNormal9.5-13.5The [facility] CenterComment on above:Performed By: #### URTPCR #### [facility] [address] [place] [address] Dr. Dwight WatersPLT292 103/phNqqgwa963-552Ceo [facility] CenterComment on above: Performed By: #### URTPCR #### [facility] [address] [place] [address] Dr. Dwight WatersRBC5.10 106/ulNormal4.70-6.10The [facility] CenterComment on above:Performed By: #### URTPCR #### [facility] [address] [place] [address] Dr. Dwight WatersWBC6.9 103/ulNormal4.0-11.0The [facility] CenterComment on above: Performed By: #### URTPCR #### [facility] [address] [place] [address] Dr. Dwight WatersCHLORIDEandrzej 85-20-5825Piyqvqrg [Moles/Vol]108 mmol/LCritically vrjh73-123Ezm [facility] CenterComment on above:Performed By: #### CBC #### [facility] [address] [place] [address] Dr. Dwight WatersCO2on 32-19-8297RW3 [Moles/Vol]25.2 mmol/SLeauyp85.0-32.0The [facility] CenterComment on above:Performed By: #### CBC #### [facility] [address] [place] [address] Dr. Dwight WatersCREATININEandrzej 82-80-8419Qoezskgecx [Mass/Vol]1.03 mg/dLNormal 0.70-1.30The [facility] CenterComment on above:Performed By: #### URTPCR #### [facility] [address] [place] [address] Dr. Dwight ChavezGFR-AF HAITIAN>60Normal>=60The [facility] CenterComment on above:Performed By: #### URTPCR #### [facility] [address] [place] [address] Dr. Dwight ChavezGFR-NON AF HAITIAN>60Normal>=60The [facility] CenterComment on above:Performed By: #### URTPCR #### [facility] [address] [place] [address] Dr. Dwight WatersGGTon 06-65-2622Ropoe glutamyl transferase [Catalytic activity/Vol]31 U/PRvqgga44-32Ilq [facility] on above:Performed By: #### URTPCR #### [facility] [address] [place] [address] Dr. Dwight WatersGLUCOSE BLOODon 94-99-3538Rhqdnjd [Mass/Vol]119 mg/dLCritically xecc06-511Hut [facility] CenterComment on above:Performed By: #### URTPCR #### [facility] [address] [place] [address] Dr. Dwight WatersMAGNESIUMon 42-37-4266Yxymnwcbv [Mass/Vol]1.4 mg/dLCritically low 1.8-2.4The [facility] on above:Performed By: #### CBC #### [facility] [address] [place] [address] Dr. Dwight WatersNAandrzej 60-83-8634Oqrjhg [Moles/Vol]142 mmol/FQxugtt202-071Fag [facility] on above:Performed By: #### CMP #### [facility] [address] [place] [address] Dr. Dwight WatersPHOSPHORUSon 72-65-1278Mlelpopyr [Mass/Vol]3.4 mg/dLNormal2.6-4.7 The [facility] CenterComment on above:Performed By: #### CBC #### [facility] [address] [address] [address] Dwight WatersPOTASSIUMon 65-05-8852Qhgqkzbin [Moles/Vol]4.1 mmol/LNormal 3.5-5.1The [facility] on above:Performed By: #### CBC #### [facility] [address] [address] [address] Dwight PetersenOToamanda 19-24-8138FFD [Catalytic activity/Vol]14 U/LCritically low 15-37The [facility] CenterComment on above:Performed By: #### CBC #### [facility] [address] [address] [address] Dwight You 89-04-2455YJM [Catalytic activity/Vol]25 U/MXisqhn02-54Fsx [facility] on above:Performed By: #### CBC #### [facility] [address] [place] [address] Dr. Dwight WatersUS KIDNEYSon 53-43-9948XD KIDNEYSUltrasound kidneys, bilateral HISTORY: Transplant of kidney , pain in the right lower quadrant COMPARISON: None. TECHNIQUE: Transabdominal ultrasound imaging of both kidneys was performed. FINDINGS: The lower sioux kidneys are diffusely echogenic and atrophic with cortical thinning. The right kidney measures 8.3 x 3.5 x 4.07 m and the left measures 9.9 x 3.8 x 3.6 cm. No hydronephrosis of the lower sioux kidneys. There is a renal transplant in [...] involving the renal transplant. 2. Atrophic lower sioux kidneys. 3. Normal bladder. Electronically authenticated by: ARCELIA PIZARRO Date: 2022-07-03 17:22NormalThe [facility] HospitalCT Abdomen and Pelvis WO contraston 12-07-1959LEBMDFKASZ: 1. Both lower sioux kidneys are atrophic with improvement in right-sided hydronephrosis since May 15, 2022. 2. 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 No hydronephrosis. No discrete perinephric collection. 3. Partially imaged postsurgical changes related to prior liver transplant. 4. The bladder is decompressed, limiting evaluation. RADIOLOGY EXAM: CT ABDOMEN/PELVIS WITHOUT CONTRAST, 06/27/2022 11:59 [...] Adrenal glands are unremarkable. Kidneys: Both lower sioux kidneys are atrophic. Interval improvement in right lower [place]oux kidney hydronephrosis since May 15, 2022. Status post right iliac fossa transplant kidney. Percutaneous nephrostomy tube in place. No hydronephrosis.. Retroperitoneal/Vasculature: No retroperitoneal adenopathy is identified. Atherosclerotic disease [...] of the spine. No aggressive osseous lesions. RADIOLOGYGera Lu MD - 06/27/2022 EXAM: CT ABDOMEN/PELVIS [...] Adrenal glands are unremarkable. Kidneys: Both lower sioux kidneys are atrophic. Interval improvement in right lower [place]oux kidney hydronephrosis since May 15, 2022. Status post right iliac fossa transplant kidney. Percutaneous nephrostomy tube in place. No hydronephrosis.. Retroperitoneal/Vasculature: No retroperitoneal adenopathy is identified. Atherosclerotic disease [...] osseous lesions. IMPRESSION IMPRESSION: 1. Both lower sioux kidneys are atrophic with improvement in right-sided hydronephrosis since May 15, 2022. 2. 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 No hydronephrosis. No discrete perinephric collection. 3. Partially imaged postsurgical changes related to prior liver transplant. 4. The bladder is decompressed, limiting evaluation. [facility]Rad[facility] (n[facility]ative[facility]CT [facility] Pel[facility] WO contrastOrdered By: Gera Lu on [id number] Memorial Hospital Work Phone: CB AUTO DIFFon 83-41-5343UTQI #0.0 103/ulNormal 0.0-0.1The [facility] CenterComment on above:Performed By: #### URTPCR #### [facility] [address] [place] [address] Dr. Dwight WatersBasophils/100 WBC (Bld)0.5 %Normal0.2-2.0The [facility] Comment on above:Performed By: #### URTPCR #### [facility] [address] [place] [address] Dr. Dwight Hernandez #0.2 103/ulNormal0.0-0.7The [facility] CenterComment on above: Performed By: #### URTPCR #### [facility] [address] [address] [address] Dwight Chavezosinophils/100 WBC (Bld)2.3 %Normal0.9-7.0The [facility] Comment on above:Performed By: #### URTPCR #### [facility] [address] [place] [address] Dr. Dwight Chavezrythrocyte distribution width (RBC) [Ratio]12.9 %Tefati39.0-15.0 [facility] HospitalComment on above:Performed By: #### URTPCR #### [facility] [address] [place] [address] Dr. Dwight WatersHematocrit (Bld) [Volume fraction]41.2 %Critically low42.0-54.0 [facility] HospitalComment on above:Performed By: #### URTPCR #### [facility] [address] [place] [address] Dr. Dwight WatersHemoglobin (Bld) [Mass/Vol]13.3 g/dLCritically low14.0-18.0The [facility] CenterComment on above:Performed By: #### URTPCR #### [facility] [address] [address] [address] Dwight Russell #0.04 10e3/ulCritically high0.00-0.03The [facility] Comment on above:Performed By: #### URTPCR #### [facility] [address] [address] [address] Dwight Russell %0.5 %Normal0.0-0.5The [facility] CenterComment on above: Performed By: #### URTPCR #### [facility] [address] [address] [address] Dwight Santana #2.0 103/ulNormal1.2-3.8The [facility] CenterComment on above:Performed By: #### URTPCR #### [facility] [address] [place] [address] Dr. Dwight Hoffmannhocytes/100 WBC (Bld)22.9 %Cxqnvs95.5-60.0The [facility] CenterComment on above:Performed By: #### URTPCR #### [facility] [address] [address] [address] Dwight WinklerUAL DIFF REQNONormalThe [facility] CenterComment on above: Performed By: #### URTPCR #### [facility] [address] [address] [address] Dwight Caraballo (RBC) [Entitic mass]28.7 epHqathp16.9-34.0The [facility] CenterComment on above:Performed By: #### URTPCR #### [facility] [address] [place] [address] Dr. Dwight Florian (RBC) [Mass/Vol]32.3 g/kSSwoiip49.9-35.2The [facility] CenterComment on above:Performed By: #### URTPCR #### [facility] [address] [place] [address] Dr. Dwight Florian (RBC) [Entitic vol]88.8 pTJygomg72.0-94.0The [facility] CenterComment on above:Performed By: #### URTPCR #### [facility] [address] [place] [address] Dr. Dwight Walsh #0.8 103/ulNormal0.3-0.8The [facility] CenterComment on above:Performed By: #### URTPCR #### [facility] [address] [place] [address] Dr. Dwight Alejandreocytes/100 WBC (Bld)9.7 %Normal1.7-12.0The [facility] Comment on above:Performed By: #### URTPCR #### [facility] [address] [place] [address] Dr. Dwight Moran #5.6 103/ulNormal1.4-6.5The [facility] CenterComment on above:Performed By: #### URTPCR #### [facility] [address] [place] [address] Dr. Dwight Haroutrophils/100 WBC (Bld)64.1 %Evvbbn50.0-75.0The [facility] CenterComment on above:Performed By: #### URTPCR #### [facility] [address] [place] [address] Dr. Dwight Rainey mean volume (Bld) [Entitic vol]10.0 fLNormal9.5-13.5The [facility] CenterComment on above:Performed By: #### URTPCR #### [facility] [address] [place] [address] Dr. Dwight WatersPLT270 103/tvFpcdky333-284Maj [facility] CenterComment on above: Performed By: #### URTPCR #### [facility] [address] [place] [address] Dr. Dwight WatersRBC4.64 106/ulCritically low4.70-6.10The [facility] CenterComment on above:Performed By: #### URTPCR #### [facility] [address] [place] [address] Dr. Dwight WatersWBC8.7 103/ulNormal4.0-11.0The [facility] CenterComment on above: Performed By: #### URTPCR #### [facility] [address] [place] [address] Dr. Dwight WatersCULTURE URINEon 77-58-3927XZGYMKS URINECulture Observations: NO GROWTH.NormalThe [facility] CenterComment on above:Performed By: #### URTPCR #### [facility] [address] [place] [address] Dr. Dwight WatersCovid-19 PCR ([facility])on 71-62-9728REUW-CoV-2 (COVID-19) RNA ESTELITA+probe Ql (Unsp spec)Not detectedNormalNOT DETECTEDHarrison Community Hospital Comment on above:Result Comment: When diagnostic testing is negative, the [...] for this test is supported by the [employer] of Health and Human Service's [...] which the test may no longer be used).Performed By: #### CBC #### [facility] [address] [place] [address] Dr. Quintanilla ChangER URINE PROFILEon 75-88-8041Zlimovhmk Ql (U)NegativeNormal NEGATIVEThe [facility] CenterComment on above:Performed By: #### URTPCR #### [facility] [address] [place] [address] Dr. Dwight WatersClarity (U)CLEARNormalCLEARThe [facility] CenterComment on above: Performed By: #### URTPCR #### [facility] [address] [address] [address] Dwight Sanchez (U)YELLOWNormalYELLOWHarrison Community HospitalComment on above: Performed By: #### URTPCR #### [facility] [address] [address] [address] Dwight Trujillo micrscopic examination will be performed if indicated. NormalThe [facility] CenterComment on above:Performed By: #### URTPCR #### [facility] [address] [place] [address] Dr. Dwight WatersGlucose Ql (U)NegativeNormalNEGATIVEHarrison Community HospitalComment on above:Performed By: #### URTPCR #### [facility] [address] [place] [address] Dr. Dwight WatersHemoglobin Ql (U)LARGEAbnormalNEGATIVECleveland Clinic Akron General on above:Performed By: #### URTPCR #### [facility] [address] [place] [address] Dr. Dwight Carrascoones Ql (U)NegativeNormalNEGATIVEHarrison Community HospitalComment on above:Performed By: #### URTPCR #### [facility] [address] [place] [address] Dr. Dwight WatersLEUKOCYTESTRACEAbnormalNEGATIVEHarrison Community HospitalComuniversity [facility] on above:Performed By: #### URTPCR #### [facility] [address] [place] [address] Dr. Dwight WatersNitrite Ql (U)NegativeNormalNEGATIVEHarrison Community HospitalComment on above:Performed By: #### URTPCR #### [facility] [address] [place] [address] Dr. Dwight WaterspH (U)6.0 [pH]Normal5-9Harrison Community HospitalComment on above: Performed By: #### URTPCR #### [facility] [address] [place] [address] Dr. Dwight WatersProtein (U) [Mass/Vol]30 mg/dLAbnormalNEGATIVE/ TRACEThe [facility] CenterComment on above:Performed By: #### URTPCR #### [facility] [address] [place] [address] Dr. Dwight Vanegas GRAVITY>=1.446Vqoeleag1.005-<=1.025The [facility] Comment on above:Performed By: #### URTPCR #### [facility] [address] [place] [address] Dr. Dwight LORA INDINDICATEDNoalThe [facility] CenterComment on above: Performed By: #### URTPCR #### [facility] [address] [place] [address] Dr. Dwight De La O Qn (U)0.2 {Alyssa'U}/dLNormal0.2 - 1.0The [facility] CenterComment on above:Performed By: #### URTPCR #### [facility] [address] [place] [address] Dr. Dwight Hatfield 14(COMP METB)on 46-18-7604Kqfjcls [Mass/Vol]3.7 g/dLNormal 3.4-5.0The [facility] CenterComment on above:Performed By: #### CMP #### [facility] [address] [place] [address] Dr. Dwight WatersAlbumin/Globulin [Mass ratio]0.9 {ratio}NormalThe [facility] CenterComment on above:Performed By: #### CMP #### [facility] [address] [place] [address] Dr. Dwight Macedo [Catalytic activity/Vol]80 U/XJmdacz33-185Cfv [facility] CenterComment on above:Performed By: #### CMP #### [facility] [address] [place] [address] Dr. Dwight Nixon [Catalytic activity/Vol]24 U/OTmlffs53-15Ghw [facility] CenterComment on above:Performed By: #### CMP #### [facility] [address] [place] [address] Dr. Dwight Alvarez gap [Moles/Vol]12.9 mmol/LNormalHarrison Community Hospital Comment on above:Performed By: #### CMP #### [facility] [address] [address] [address] Dwight WatersAST [Catalytic activity/Vol]17 U/TIxiyhn65-66Yqc [facility] CenterComment on above:Performed By: #### CMP #### [facility] [address] [address] [address] Dwight WatersBilirubin [Mass/Vol]0.8 mg/dLNormal0.2-1.0The [facility] Comment on above:Performed By: #### CMP #### [facility] [address] [address] [address] Dwight WatersCalcium [Mass/Vol]9.4 mg/dLNormal8.5-10.1[facility] Comment on above:Performed By: #### CMP #### [facility] [address] [address] [address] Dwight WatersChloride [Moles/Vol]106 mmol/DCuudut59-289Egv [facility] Comment on above:Performed By: #### CMP #### [facility] [address] [place] [address] Dr. Dwight WatersCO2 [Moles/Vol]25.3 mmol/EInwhdn18.0-32.0[facility] Comment on above:Performed By: #### CMP #### [facility] [address] [address] [address] Dwight WatersCreatinine [Mass/Vol]1.29 mg/dLNormal0.70-1.30The [facility] CenterComment on above:Performed By: #### CMP #### [facility] [address] [place] [address] Dr. Dwight ChavezGFR-AF HAITIAN>60Normal>=60The [facility] CenterComment on above:Performed By: #### CMP #### [facility] [address] [address] [address] Yilan ChangEGFR-NON AF KWVRSHQB19 mL/min/1.14h3Qbhawvhryn low>=60The [facility] CenterComment on above:Performed By: #### CMP #### [facility] [address] [address] [address] Dwight WatersGlobulin (S) [Mass/Vol]4.2 g/dLNormMercy Health Allen HospitalComment on above:Performed By: #### CMP #### [facility] [address] [place] [address] Dr. Dwight WatersGlucose [Mass/Vol]106 mg/mSRytloi77-593Vko [facility] Comment on above:Performed By: #### CMP #### [facility] [address] [place] [address] Dr. Dwight WatersPotassium [Moles/Vol]4.2 mmol/LNormal3.5-5.1The [facility] Comment on above:Performed By: #### CMP #### [facility] [address] [place] [address] Dr. Dwight WatersProtein [Mass/Vol]7.9 g/dLNormal6.4-8.2The [facility] Comment on above:Performed By: #### CMP #### [facility] [address] [place] [address] Dr. Dwight Underwooddium [Moles/Vol]140 mmol/MOqtfby267-628VqjHarrison Community Hospital Comment on above:Performed By: #### CMP #### [facility] [address] [place] [address] Dr. Dwight WatersUrea nitrogen [Mass/Vol]22.0 mg/dLCritically high7.0-18.0The [facility] CenterComment on above:Performed By: #### CMP #### [facility] [address] [place] [address] Dr. Dwight Jhaveri nitrogen/Creatinine [Mass ratio]17.1 mg/mgNoAdams County Regional Medical CenterComment on above:Performed By: #### CMP #### [facility] [address] [place] [address] Dr. Dwight Velázquez MICROSCOPIC ONLYon 13-91-9479SQEUHXTNSTCXUOzztyorrPRHV SEEN [facility] on above:Performed By: #### URTPCR #### [facility] [address] [place] [address] Dr. Dwight Cooley identified Cx Nom (U)INDICATEDMarietta Osteopathic Clinic on above:Performed By: #### URTPCR #### [facility] [address] [place] [address] Dr. Dwight Lopez SEENNormalNONE SEENSamaritan North Health Center on above:Performed By: #### URTPCR #### [facility] [address] [address] [address] Dwight Pateystals LM Nom (Urine sed)NONE SEENNormalNONE SEENSamaritan North Health Center on above:Performed By: #### URTPCR #### [facility] [address] [place] [address] Dr. Quintanilla ChangEpithelial cells LM Ql (Urine sed)NONE SEENNormalNONE SEEN /RARE [facility] on above:Performed By: #### URTPCR #### [facility] [address] [place] [address] Dr. Dwight Jessica SEENRusk Rehabilitation CenterE [facility] on above:Performed By: #### URTPCR #### [facility] [address] [place] [address] Dr. Dwight WatersYmriqKMG2-60Jcyqzmhg7-8CdaSamaritan North Health Center on above:Performed By: #### URTPCR #### [facility] [address] [place] [address] Dr. Dwight WatersQqddxHDY05-36VpyutmwwYGAX SEENSamaritan North Health Center on above: Performed By: #### URTPCR #### [facility] [address] [place] [address] Dr. Dwight Pedersen RECIPIENT (POST TX PRA)on [id number] SPECIFICITY CLASS COMMENTAntibody Specificity testing performed by [employer]. cPRA calculation based on identification of HLA antibody specificities at MFI >2000 and/or presence of CREG antibodies.[facility] Hospital - AndersonComment on above: Some of the reagents used for testing in the Clinical Histocompatibility Laboratory have yet to be approved by the FDA. Our certification by CLIA to perform high complexity tests allows us to use these reagents in the context of a stringent QC program, and obviates the need for FDA approval.Testing performed by the [facility] Clinical Histocompatibility Laboratory. [facility] number: [id number]. CLIA number: [id number], Director: Carlito Merchant,PhD, D([facility]). ANTIBODY SPECIFICITY INTERPRETATIONDetectedOur Lady of Mercy Hospital - AndersonCLASS I SPECIFICITIESNot detectedOur Lady of Mercy Hospital - AndersonCLASS II SPECIFICITIESNot detectedOSMercy Health Tiffin HospitalHLA Ab (S)0 %0OSMercy Health Tiffin HospitalOSMercy Health Tiffin HospitalEXTRA MICROon [id number] [facility] CenterURINE CULTUREOrdered By: Salvador Upton on 51-68-2404Rvwrcjfn identified Cx Nom (Unsp spec)GrowthOSMercy Health Tiffin HospitalBacteria identified Cx Nom (Unsp spec) 10,000-50,000 CFU/mL Mixed skin floraOSMercy Health Tiffin HospitalComment on above: Multiple bacterial morphotypes present. Suggest appropriate recollection if clinically indicated.[facility] - AndersonCBC,PLATELETSon 06-12-2022 Erythrocyte distribution width (RBC) [Ratio]13.0 %10.9 - 14.3 %[facility] - AndersonHematocrit (Bld) [Volume fraction]43.2 %39.6 - 48.8 %[facility] - AndersonHemoglobin (Bld) [Mass/Vol]13.9 g/dL13.4 - 16.8 g/dLOur Lady of Mercy Hospital - AndersonInterpretation and review of laboratory resultsNormalORegency Hospital Cleveland WestH (RBC) [Entitic mass]28.7 pg26.1 - 33.3 pgOur Lady of Mercy Hospital - AndersonMCHC (RBC) [Mass/Vol]32.2 g/dL31.9 - 36.5 g/dLOur Lady of Mercy Hospital - AndersonMCV (RBC) [Entitic vol]89.1 fL79.0 - 94.5 [facility] HospitalPlatelet mean volume (Bld) [Entitic vol]10.5 fL8.7 - 12.3 [facility] HospitalPlatelets (Bld) [#/Vol]269 10*3/uL146 - 337 K/[facility] Memorial HospitalRBC (Bld) [#/Vol] 4.85 10*6/uLOur Lady of Mercy Hospital - AndersonWBC (Bld) [#/Vol]7.68 10*3/uL3.73 - 10.10 K/uLMemorial Hospital Of GardenaCHEM 7 (LYTES,BUN,CREA,GLUC)on 71-28-3061Snbes gap [Moles/Vol]14 mmol/L7 - 17 mmol/[facility] - CantonChloride [Moles/Vol]106 mmol/L98 - 108 mmol/[facility] - CantonCO2 [Moles/Vol]25 mmol/L21 - 31 mmol/[facility] Creatinine [Mass/Vol]1.26 mg/dL0.70 - 1.30 mg/dLOur Lady of Mercy Hospital - Anderson GFR/1.73 sq M.predicted CKD-EPI (S/P/Bld) [Vol rate/Area]69>=60 mL/min/1.83d7OHROur Lady of Mercy Hospital - AndersonComment on above:Reported eGFR is based on the CKD-EPI 2020 equation using creatinine, age, and sex.Glucose [Mass/Vol]83 mg/dL70 - 99 mg/dL [facility] CenterOsmolality Calc [Osmolality]295[facility] CenterPotassium [Moles/Vol]3.8 mmol/L3.5 - 5.0 mmol/[facility] Sodium [Moles/Vol]141 mmol/L135 - 145 mmol/[facility] - CantonUrea nitrogen [Mass/Vol]18 mg/dL7 - 25 mg/dLOur Lady of Mercy Hospital - AndersonUrea nitrogen/Creatinine [Mass ratio]14 mg/mgOur Lady of Mercy Hospital - AndersonGGTon 88-45-0071Lqcoi glutamyl transferase [Catalytic activity/Vol]20 U/L8 - 64 U/[facility] - CantonHEMOGLOBIN L6DNgwlrdy By: Joan Roche on 06-12-2022 Average glucose Estimated from glycated hemoglobin (Bld) [Mass/Vol]126 mg/dLOur Lady of Mercy Hospital - AndersonHbA1c (Bld) [Mass fraction]6.0 %High4.7 - 5.6 %[facility] CenterInterpretation and review of laboratory resultsAbnormSonoma Valley HospitalHEPATIC FUNCTION PANELon 06-12-2022 Albumin [Mass/Vol]4.3 g/dL3.5 - 5.0 g/dLOSMercy Health Tiffin HospitalALP [Catalytic activity/Vol]78 U/L32 - 126 U/[facility] CantonALT [Catalytic activity/Vol]12 U/L10 - 52 U/[facility] CantonAST [Catalytic activity/Vol]16 U/L10 - 39 U/[facility] - CantonBilirubin [Mass/Vol]1.0 mg/dL<1.5OSMercy Health Tiffin HospitalBilirubin.direct [Mass/Vol]0.2 mg/dL<0.3OSMercy Health Tiffin HospitalProtein [Mass/Vol]7.5 g/dL6.4 - 8.3 g/dLOur Lady of Mercy Hospital - AndersonNo Panel Informationon 20-38-4261Anhojonjcqurtd and review of laboratory resultsNormSt. John of God HospitalOSMercy Health Tiffin HospitalPTH INTACTOrdered By: Javier Lizarraga on 44-00-5286Wrzzlncmzuxrxb and review of laboratory results AbnormalOSMercy Health Tiffin HospitalParathyrin.intact [Mass/Vol]79.7 pg/eSUkwr17.0 - 72.0 pg/mLOSMercy Health Tiffin HospitalOSMercy Health Tiffin HospitalURINALYSIS REFLEX TO CULTURE PERFORMABLEon 36-96-9196Zvhentqzii (U)ClearClearODetwiler Memorial HospitalBacteria LM Ql (Urine sed)ABSENTABSENTOSMercy Health Tiffin HospitalColor (U) YellowYellowOSU [facility] Medical CenterEpithelial cells.squamous LM Ql (Urine sed) 1/hpf = 1+1/hpf = 1+, 2-5/hpf = 2+, 0/hpf = 0+, ABSENTOSU [facility] Glucose Test strip (U) [Mass/Vol]NegativeNegativeOur Lady of [facility] Interpretation and review of laboratory resultsAbnormalOSU [facility] Ketones (U) [Mass/Vol]TraceAbnormalNegMorrow County HospitalLeukocyte esterase Test strip Ql (U)SmallAbnormalNegativeOSMercy Health Tiffin HospitalNitrite Ql (U)NegativeNegativeOSMercy Health Tiffin HospitalpH (U)5.5 [pH]5.0 - 7.0[facility] CenterProtein (U) [Mass/Vol]30 mg/dLAbnormalNegativeOur Lady of Mer[facility] Hospital - AndersonRBC (U) [#/Vol]TraceAbnormalNegativeOur Lady of Mercy Hospital - AndersonRBC LM.HPF (Urine sed) [#/Area]0-20 - 2 /HPFOhioHealth Dublin Methodist Hospitalpecific gravity (U) [Rel density]1.026OSMercy Health Tiffin HospitalUrobilinogen (U) [Mass/Vol]0.2 E.U./dL0.2 E.U/dL, 1.0 E.U/dLOSU [facility] Medical CenterWBC LM.HPF (Urine sed) [#/Area]10-87Vqaogfii9 - 5 /HPFOSMercy Health Tiffin HospitalOSMercy Health Tiffin HospitalURINE PROTEIN/CREA RATIO, RANDOMon 68-90-5341Bvsdpelusv (24H U) [Mass/Vol] 231.68 mg/dLOur Lady of Mercy Hospital - AndersonProtein Unsp time (U) [Mass/Vol]49 mg/dLOur Lady of Mercy Hospital - AndersonProtein/Creatinine (U) [Mass ratio]0.211 mg/gOSU Kindred Hospital at WayneFK506 (TACROLIMUS) WHOLE BLOODon 87-52-2179Mtmvgemfqn (FK506), Blood9.8 ng/mLNormal2.0-20.0The [facility] Comment on above:Result Comment: Trough (immediately following transplant) 15.0 . Trough (steady state, 2 weeks or more after transplant): 3.0 - 8.0 . Performed by LC-MS/MS technology.Performed By: #### URTPCR #### [facility] [address] [place] [address] Dr. Dwight WatersALBUMINon 56-71-5433Jklvcxv [Mass/Vol]3.8 g/dLNormal3.4-5.0The [facility] CenterComment on above:Performed By: #### CMP #### [facility] [address] [place] [address] Dr. Dwight WatersALKALINE PHOSPHAon 52-01-8716CCC [Catalytic activity/Vol]82 U/L Yqyjtw09-961Dkk [facility] on above:Performed By: #### CMP #### [facility] [address] [place] [address] Dr. Dwight PatriciaIRUBIN CONJUGATED (DIRECT)on 55-67-0363MAGQ, CONJUGATED0.2 mg/dLNormal0.0-0.2The [facility] CenterComment on above:Performed By: #### CBC #### [facility] [address] [place] [address] Dr. Dwight PatriciaIRUBIN TOTALon 69-16-2932Nsxebjfdq [Mass/Vol]1.0 mg/dLNormal 0.2-1.0The [facility] CenterComment on above:Performed By: #### CBC #### [facility] [address] [place] [address] Dr. Dwight Cornejo 35-56-8621Agmf nitrogen [Mass/Vol]18.0 mg/dLNormal7.0-18.0 The [facility] CenterComment on above:Performed By: #### CBC #### [facility] [address] [place] [address] Dr. Dwight WatersCALCIUMon 51-99-2082Rtgiyvx [Mass/Vol]9.4 mg/dLNormal8.5-10.1The [facility] CenterComment on above:Performed By: #### CMP #### [facility] [address] [place] [address] Dr. Dwight PriceC AUTO DIFFon 11-89-6036HJQJ #0.1 103/ulNormal0.0-0.1The [facility] CenterComment on above:Performed By: #### URTPCR #### [facility] [address] [place] [address] Dr. Dwight WatersBasophils/100 WBC (Bld)0.8 %Normal0.2-2.0The [facility] Comment on above:Performed By: #### URTPCR #### [facility] [address] [place] [address] Dr. Dwight Hernandez #0.3 103/ulNormal0.0-0.7The [facility] CenterComment on above: Performed By: #### URTPCR #### [facility] [address] [place] [address] Dr. Dwight Chavezosinophils/100 WBC (Bld)3.3 %Normal0.9-7.0The [facility] Comment on above:Performed By: #### URTPCR #### [facility] [address] [place] [address] Dr. Dwight Chavezrythrocyte distribution width (RBC) [Ratio]12.4 %Kunmng11.0-15.0 The [facility] CenterComment on above:Performed By: #### URTPCR #### [facility] [address] [place] [address] Dr. Dwight WatersHematocrit (Bld) [Volume fraction]45.1 %Snkzyq80.0-54.0The [facility] CenterComment on above:Performed By: #### URTPCR #### [facility] [address] [place] [address] Dr. Dwight WatersHemoglobin (Bld) [Mass/Vol]14.4 g/bJLuiakh08.0-18.0The [facility] CenterComment on above:Performed By: #### URTPCR #### [facility] [address] [place] [address] Dr. Dwight Russell #0.01 10e3/ulNormal0.00-0.03The [facility] CenterComment on above:Performed By: #### URTPCR #### [facility] [address] [place] [address] Dr. Dwight Russell %0.1 %Normal0.0-0.5The [facility] CenterComment on above: Performed By: #### URTPCR #### [facility] [address] [place] [address] Dr. Dwight Santana #2.2 103/ulNormal1.2-3.8The [facility] CenterComment on above:Performed By: #### URTPCR #### [facility] [address] [place] [address] Dr. Dwight Hoffmannhocytes/100 WBC (Bld)30.0 %Pdnpdl15.5-60.0The [facility] CenterComment on above:Performed By: #### URTPCR #### [facility] [address] [place] [address] Dr. Dwight WinklerUAL DIFF REQNONormalThe [facility] CenterComment on above: Performed By: #### URTPCR #### [facility] [address] [place] [address] Dr. Dwight Florian (RBC) [Entitic mass]28.2 hrBclcao24.9-34.0The [facility] CenterComment on above:Performed By: #### URTPCR #### [facility] [address] [place] [address] Dr. Dwight Florian (RBC) [Mass/Vol]31.9 g/nENzxypn38.9-35.2The [facility] on above:Performed By: #### URTPCR #### [facility] [address] [place] [address] Dr. Dwight Florian (RBC) [Entitic vol]88.3 hOJrrtsk91.0-94.0The [facility] on above:Performed By: #### URTPCR #### [facility] [address] [place] [address] Dr. Dwight Walsh #0.6 103/ulNormal0.3-0.8The [facility] CenterComment on above:Performed By: #### URTPCR #### [facility] [address] [place] [address] Dr. Dwight WatersMonocytes/100 WBC (Bld)8.2 %Normal1.7-12.0The [facility] on above:Performed By: #### URTPCR #### [facility] [address] [place] [address] Dr. Dwight HaroUT #4.3 103/ulNormal1.4-6.5The [facility] HospitalComment on above:Performed By: #### URTPCR #### [facility] [address] [place] [address] Dr. Dwight Haroutrophils/100 WBC (Bld)57.6 %Vauzbl42.0-75.0The [facility] CenterComment on above:Performed By: #### URTPCR #### [facility] [address] [place] [address] Dr. Dwight WatersPlatelet mean volume (Bld) [Entitic vol]9.7 fLNormal9.5-13.5The [facility] CenterComment on above:Performed By: #### URTPCR #### [facility] [address] [place] [address] Dr. Dwight WatersPLT297 103/wpVsowvp639-868Bos [facility] CenterComment on above: Performed By: #### URTPCR #### [facility] [address] [place] [address] Dr. Dwight WatersRBC5.11 106/ulNormal4.70-6.10The [facility] CenterComment on above:Performed By: #### URTPCR #### [facility] [address] [place] [address] Dr. Dwight WatersWBC7.5 103/ulNormal4.0-11.0The [facility] CenterComment on above: Performed By: #### URTPCR #### [facility] [address] [place] [address] Dr. Dwight Dixon 60-56-8111Sntfnxfb [Moles/Vol]107 mmol/QGfxmtr02-352 The [facility] CenterComment on above:Performed By: #### CBC #### [facility] [address] [place] [address] Dr. Dwight WatersCO2on 17-28-6743ZK7 [Moles/Vol]27.4 mmol/CNwwntf62.0-32.0The [facility] on above:Performed By: #### CBC #### [facility] [address] [place] [address] Dr. Dwight WatersCREATININEon 50-02-7646Likulgthim [Mass/Vol]1.20 mg/dLNormal 0.70-1.30The [facility] CenterComun[facility] on above:Performed By: #### CBC #### [facility] [address] [place] [address] Dr. Quintanilla ChangEGFR-AF HAITIAN>60Normal>=60The [facility] CenterComun[facility] on above:Performed By: #### CBC #### [facility] [address] [place] [address] Dr. Dwight ChavezGFR-NON AF HAITIAN>60Normal>=60[facility] on above:Performed By: #### CBC #### [facility] [address] [place] [address] Dr. Dwight WatersGGTon 27-52-2268Wrsqh glutamyl transferase [Catalytic activity/Vol]29 U/IOlybzx82-93Kcm [facility] on above:Performed By: #### CBC #### [facility] [address] [place] [address] Dr. Dwight WatersGLUCOSE BLOODon 75-15-9194Rxptehj [Mass/Vol]112 mg/dLCritically jaal20-089Hdu [facility] on above:Performed By: #### CBC #### [facility] [address] [place] [address] Dr. Dwight WatersMAGNESIUMon 30-66-8022Cfijmeqjq [Mass/Vol]1.3 mg/dLCritically low 1.8-2.4The [facility] CenterComment on above:Performed By: #### CMP #### [facility] [address] [place] [address] Dr. Dwight Trevizo 62-02-2460Nztncr [Moles/Vol]141 mmol/JZofznr342-046Lwf [facility] CenterComment on above:Performed By: #### CMP #### [facility] [address] [place] [address] Dr. Dwight MckeonUSandrzej 90-39-7748Ypoitutdw [Mass/Vol]3.1 mg/dLNormal2.6-4.7 The [facility] CenterComment on above:Performed By: #### CMP #### [facility] [address] [place] [address] Dr. Dwight Prieto 22-81-9199Qsuvrvqqn [Moles/Vol]4.3 mmol/LNormal 3.5-5.1The [facility] CenterComment on above:Performed By: #### CBC #### [facility] [address] [place] [address] Dr. Dwight Roland 13-35-1009OUE [Catalytic activity/Vol]16 U/ACbqcem76-61Xrt [facility] CenterComment on above:Performed By: #### CBC #### [facility] [address] [place] [address] Dr. Dwight You 60-66-5094SDN [Catalytic activity/Vol]50 U/XKpbndc68-18Hgi [facility] CenterComment on above:Performed By: #### CBC #### [facility] [address] [place] [address] Dr. Dwight WatersBacteria identified Cx Nom (Bld)on 70-59-2037Loamlzov identified Cx Nom (Unsp spec)NO GROWTH DAY 5 OF OSMercy Health Tiffin HospitalResults may be compromised due to volume of BACT\ALERT bottle exceeding 10mLs . The optimal blood volume is 8-10 mls per aerobic/anaerobic blood culture bottle.[facility] CenterOSU [facility] CenterCALCIUMon 13-90-4167Ilupcam [Mass/Vol]9.1 mg/dL8.6 - 10.5 mg/dLOur Lady of Mercy Hospital - AndersonCBC,PLATELETSon 05-20-2022 Erythrocyte distribution width (RBC) [Ratio]12.5 %10.9 - 14.3 %[facility] - AndersonHematocrit (Bld) [Volume fraction]37.1 %Low39.6 - 48.8 %[facility] - AndersonHemoglobin (Bld) [Mass/Vol]12.3 g/dLLow13.4 - 16.8 g/dLOur Lady of Mercy Hospital - AndersonInterpretation and review of laboratory resultsAbnormBarberton Citizens HospitalH (RBC) [Entitic mass]28.9 pg26.1 - 33.3 pgOur Lady of Mercy Hospital - AndersonMCHC (RBC) [Mass/Vol]33.2 g/dL31.9 - 36.5 g/dLOur Lady of Mercy Hospital - AndersonMCV (RBC) [Entitic vol]87.3 fL79.0 - 94.5 [facility] HospitalPlatelet mean volume (Bld) [Entitic vol]9.9 fL8.7 - 12.3 [facility] HospitalPlatelets (Bld) [#/Vol]234 10*3/uL146 - 337 K/uLOur Lady of Mercy Hospital - AndersonRBC (Bld) [#/Vol] 4.25 10*6/uLLowOur Lady of Mercy Hospital - AndersonWBC (Bld) [#/Vol]6.31 10*3/uL3.73 - 10.10 K/uLMemorial Hospital Of GardenaCHEM 7 (LYTES,BUN,CREA,GLUC)on 33-89-9047Tfvkb gap [Moles/Vol]15 mmol/L7 - 17 mmol/[facility] CantonChloride [Moles/Vol]111 mmol/LHigh98 - 108 mmol/[facility] CantonCO2 [Moles/Vol]22 mmol/L21 - 31 mmol/[facility] CantonCreatinine [Mass/Vol]1.10 mg/dL0.70 - 1.30 mg/dLOur Lady of Mercy Hospital - Anderson GFR/1.73 sq M.predicted CKD-EPI (S/P/Bld) [Vol rate/Area]81>=60 mL/min/1.03l4PPAOur Lady of Mercy Hospital - AndersonComment on above:Reported eGFR is based on the CKD-EPI 2020 equation using creatinine, age, and sex.Glucose [Mass/Vol]92 mg/dL70 - 99 mg/dL [facility] - AndersonInterpretation and review of laboratory resultsAbnormal [facility] - AndersonOsmolality Calc [Osmolality]302[facility] CenterPotassium [Moles/Vol]4.4 mmol/L3.5 - 5.0 mmol/L[facility]U [facility] Sodium [Moles/Vol]144 mmol/L135 - 145 mmol/LOSMercy Health Tiffin HospitalUrea nitrogen [Mass/Vol]18 mg/dL7 - 25 mg/dLOur Lady of Mercy Hospital - AndersonUrea nitrogen/Creatinine [Mass ratio]16 mg/mgMemorial Hospital Of GardenaMAGNESIUMon 98-88-1609Tpaagqwjggueji and review of laboratory resultsAbOhioHealth Van Wert HospitalMagnesium [Mass/Vol]1.5 mg/dLLow1.6 - 2.6 mg/dLOur Lady of Mercy Hospital - AndersonNo Panel Informationon 05-20-2022 Interpretation and review of laboratory resultsNoMad River Community HospitalPHOSPHATE, INORGANICon 15-87-5795Juaiftzwz [Mass/Vol] 3.3 mg/dL2.2 - 4.6 mg/dLOur Lady of Mercy Hospital - AndersonRF Unspecified body region Views during surgeryon 17-17-3133RLIVCHTWFL: 1. Status post kidney transplant into the [...] I have reviewed and approved this report. RADIOLOGY EXAM: XR FLUORO NEPHROSTOGRAM, 05/20/2022 12:49 PM COMPARISON: Renal ultrasound transplant scan on 05/16/2022 CLINICAL INDICATIONS: please evaluate distal ureter to identify obstruction if present. TECHNIQUE: Nephrostomy tube in the right lower quadrant renal transplant was accessed and injected with water-soluble contrast. Spot images were taken in multiple projections of kidneys, ureters, and bladder. FINDINGS: Port Cdl A Driver images: Port Cdl A Driver radiographs of the abdomen reveal a nonobstructive [...] refluxes up the ureter to the lower sioux right kidney that is grossly normal appearing. Contrast begins to fill the bladder that is grossly normal. Left kidney is not appreciated during this exam. Lizz Jon MD - 05/20/2022 EXAM: XR FLUORO NEPHROSTOGRAM, 05/20/2022 12:49 PM COMPARISON: Renal ultrasound transplant scan on 05/16/2022 CLINICAL INDICATIONS: please evaluate distal ureter to identify obstruction if present. TECHNIQUE: Nephrostomy tube in the right lower quadrant renal transplant was accessed and injected with water-soluble contrast. Spot images were taken in multiple projections of kidneys, ureters, and bladder. FINDINGS: Port Cdl A Driver images: Port Cdl A Driver radiographs of the abdomen reveal a nonobstructive [...] refluxes up the ureter to the lower sioux right kidney that is grossly normal appearing. [...] I have reviewed and approved this report. [facility] CenterRadiology Study observation (narrative)OSMercy Health Tiffin HospitalRF Unspecified body region Views during surgeryOrdered By: Lizz Campos on 66-54-9662KJADetwiler Memorial Hospital Work Phone: CALCIUMon 59-99-2147Ohetyqm [Mass/Vol]9.2 mg/dL8.6 - 10.5 mg/dLOur Lady of Mercy Hospital - AndersonCalcium [Mass/Vol]8.6 mg/dL8.6 - 10.5 mg/dL [facility] AndersonCBC,PLATELETSon 26-67-8883Fskdxamtwlf distribution width (RBC) [Ratio]12.4 %10.9 - 14.3 %OSMercy Health Tiffin HospitalHematocrit (Bld) [Volume fraction]38.0 %Low39.6 - 48.8 %[facility] - AndersonHemoglobin (Bld) [Mass/Vol]12.0 g/dLLow13.4 - 16.8 g/dLOur Lady of Mercy Hospital - AndersonInterpretation and review of laboratory resultsAbnormDayton Osteopathic Hospital (RBC) [Entitic mass]28.6 pg26.1 - 33.3 pgOSU [facility] Medical CenterHC (RBC) [Mass/Vol]31.6 g/dLLow31.9 - 36.5 g/dLOSMymichigan Medical Center West Branch Medical CenterMCV (RBC) [Entitic vol]90.5 fL79.0 - 94.5 [facility] HospitalPlatelet mean volume (Bld) [Entitic vol]9.7 fL8.7 - 12.3 [facility] HospitalPlatelets (Bld) [#/Vol]199 10*3/uL146 - 337 K/uLOur Lady of Mercy Hospital - AndersonRBC (Bld) [#/Vol]4.20 10*6/uLLowOur Lady of Mercy Hospital - AndersonWBC (Bld) [#/Vol]6.81 10*3/uL3.73 - 10.10 K/uLMemorial Hospital Of GardenaCHEM 7 (LYTES,BUN,CREA,GLUC)on 71-57-4495Tzslq gap [Moles/Vol]13 mmol/L7 - 17 mmol/[facility] CantonChloride [Moles/Vol]105 mmol/L98 - 108 mmol/[facility] CantonCO2 [Moles/Vol]30 mmol/L21 - 31 mmol/[facility] Creatinine [Mass/Vol]1.39 mg/dLHigh0.70 - 1.30 mg/dLOur Lady of Mercy Hospital - Anderson GFR/1.73 sq M.predicted CKD-EPI (S/P/Bld) [Vol rate/Area]61>=60 mL/min/1.87a3UVDOur Lady of Mercy Hospital - AndersonComment on above:Reported eGFR is based on the CKD-EPI 2020 equation using creatinine, age, and sex.Glucose [Mass/Vol]121 mg/jWLxtg58 - 99 mg/dLOur Lady of Mercy Hospital - AndersonInterpretation and review of laboratory results AbnormalOur Lady of Mercy Hospital - AndersonOsmolality Calc [Osmolality]303[facility] CenterPotassium [Moles/Vol]3.8 mmol/L3.5 - 5.0 mmol/[facility] Barber[facility] Campusodium [Moles/Vol]144 mmol/L135 - 145 mmol/[facility] CantonUrea nitrogen [Mass/Vol]18 mg/dL7 - 25 mg/dLOur Lady of Mercy Hospital - AndersonUrea nitrogen/Creatinine [Mass ratio]13 mg/mgOSMercy Health Tiffin HospitalAnion gap [Moles/Vol]15 mmol/L7 - 17 mmol/[facility] CantonChloride [Moles/Vol] 106 mmol/L98 - 108 mmol/[facility] CantonCO2 [Moles/Vol]24 mmol/L21 - 31 mmol/[facility] CantonCreatinine [Mass/Vol]1.46 mg/dLHigh0.70 - 1.30 mg/dLOur Lady of Mercy Hospital - AndersonGFR/1.73 sq M.predicted CKD-EPI (S/P/Bld) [Vol rate/Area]58Low>=60 mL/min/1.87r2QXOOur Lady of Mercy Hospital - AndersonComment on above: Reported eGFR is based on the CKD-EPI 2020 equation using creatinine, age, and sex.Glucose [Mass/Vol]103 mg/tEMxiv94 - 99 mg/dLOur Lady of Mercy Hospital [facility] Anderson Interpretation and review of laboratory resultsAbnoParkview Health Bryan Hospital Osmolality Calc [Osmolality]298OSMercy Health Tiffin HospitalPotassium [Moles/Vol]3.9 mmol/L3.5 - 5.0 mmol/[facility] Barber[facility] Campusodium [Moles/Vol]141 mmol/L135 - 145 mmol/[facility] CantonUrea nitrogen [Mass/Vol]21 mg/dL7 - 25 mg/dLOur Lady of Mercy Hospital - AndersonUrea nitrogen/Creatinine [Mass ratio]14 mg/mgOur Lady of Mercy Hospital - AndersonMAGNESIUMon 39-85-5449Dhzcnelij [Mass/Vol]2.0 mg/dL1.6 - 2.6 mg/dLOur Lady of Mercy Hospital - AndersonMagnesium [Mass/Vol]1.7 mg/dL1.6 - 2.6 mg/dL [facility] CenterNo Panel Informationon 97-43-7860Szhpzofiblhjmo and review of laboratory resultsNoLos Angeles General Medical CenterInterpretation and review of laboratory resultsNoLos Angeles General Medical CenterPHOSPHATE, INORGANICon 84-05-3143Brgatzdlr [Mass/Vol]3.0 mg/dL2.2 - 4.6 mg/dLOur Lady of Mercy Hospital - AndersonPhosphate [Mass/Vol] 2.7 mg/dL2.2 - 4.6 mg/dLOur Lady of Mercy Hospital - AndersonCALCIUMon 83-58-0974Oztmkwv [Mass/Vol]9.1 mg/dL8.6 - 10.5 mg/dLOur Lady of Mercy Hospital - AndersonCBC,PLATELETSon 63-92-1134Iarnyuoorkv distribution width (RBC) [Ratio]12.5 %10.9 - 14.3 %[facility] - AndersonHematocrit (Bld) [Volume fraction]37.3 %Low39.6 - 48.8 %[facility] AndersonHemoglobin (Bld) [Mass/Vol]11.9 g/dLLow13.4 - 16.8 g/dLOur Lady of Mercy Hospital - AndersonInterpretation and review of laboratory resultsAbnormBarberton Citizens HospitalH (RBC) [Entitic mass]28.9 pg26.1 - 33.3 pgOur Lady of Mercy Hospital - AndersonMCHC (RBC) [Mass/Vol]31.9 g/dL31.9 - 36.5 g/dLOur Lady of Mercy Hospital - AndersonMCV (RBC) [Entitic vol]90.5 fL79.0 - 94.5 [facility] Platelet mean volume (Bld) [Entitic vol]10.1 fL8.7 - 12.3 [facility] HospitalPlatelets (Bld) [#/Vol]189 10*3/uL146 - 337 K/uLOur Lady of Mercy Hospital - Anderson RBC (Bld) [#/Vol]4.12 10*6/uLLowU [facility] CenterWBC (Bld) [#/Vol]10.19 10*3/uLHigh3.73 - 10.10 K/uLOur Lady of Mercy Hospital - AndersonOSMercy Health Tiffin Hospital CHEM 7 (LYTES,BUN,CREA,GLUC)on 26-06-5567Oqbtl gap [Moles/Vol]13 mmol/L7 - 17 mmol/[facility] CantonChloride [Moles/Vol]102 mmol/L98 - 108 mmol/[facility] CantonCO2 [Moles/Vol]26 mmol/L21 - 31 mmol/[facility] CantonCreatinine [Mass/Vol]1.91 mg/dLHigh0.70 - 1.30 mg/dLOur Lady of Mercy Hospital - AndersonGFR/1.73 sq M.predicted CKD-EPI (S/P/Bld) [Vol rate/Area]42Low>=60 mL/min/1.00j9EWCOur Lady of Mercy Hospital - AndersonComment on above:Reported eGFR is based on the CKD-EPI 2021 equation using creatinine, age, and sex.Glucose [Mass/Vol]158 mg/qMLsem46 - 99 mg/dLOur Lady of Mercy Hospital - AndersonOsmolality Calc [Osmolality]297 [facility] CenterPotassium [Moles/Vol]4.0 mmol/L3.5 - 5.0 mmol/[facility] Barber[facility] Campusodium [Moles/Vol]137 mmol/L135 - 145 mmol/[facility] CantonUrea nitrogen [Mass/Vol]30 mg/dLHigh7 - 25 mg/dLOur Lady of Mercy Hospital - AndersonUrea nitrogen/Creatinine [Mass ratio]16 mg/mgOur Lady of Mercy Hospital - Anderson CHEM 7 (LYTES,BUN,CREA,GLUC)Ordered By: Tamiko Thapa on 77-43-3883Pcckc gap [Moles/Vol]13 mmol/L7 - 17 mmol/[facility] CantonChloride [Moles/Vol] 104 mmol/L98 - 108 mmol/[facility] CantonCO2 [Moles/Vol]26 mmol/L21 - 31 mmol/[facility] CantonCreatinine [Mass/Vol]2.96 mg/dLHigh0.70 - 1.30 mg/dLOur Lady of Mercy Hospital - AndersonGFR/1.73 sq M.predicted CKD-EPI (S/P/Bld) [Vol rate/Area]25Low>=60 mL/min/1.84o1ORSOur Lady of Mercy Hospital - AndersonComment on above: Reported eGFR is based on the CKD-EPI 2021 equation using creatinine, age, and sex.Glucose [Mass/Vol]136 mg/sUUahm87 - 99 mg/dLOur Lady of Mer[facility] Anderson Interpretation and review of laboratory resultsAbnormalOSU [facility] Osmolality Calc [Osmolality]304[facility] CenterPotassium [Moles/Vol]4.2 mmol/L3.5 - 5.0 mmol/LOSU [facility] Hospitalodium [Moles/Vol]139 mmol/L135 - 145 mmol/LOSU [facility] CenterUrea nitrogen [Mass/Vol]41 mg/dLHigh7 - 25 mg/dLOur Lady of Mercy Hospital - AndersonUrea nitrogen/Creatinine [Mass ratio]14 mg/mgOSMercy Health Tiffin HospitalMAGNESIUMon 48-93-4713Modgeotvh [Mass/Vol]2.2 mg/dL1.6 - 2.6 mg/dLOur Lady of Mercy Hospital - AndersonInterpretation and review of laboratory resultsNoParkview Health Bryan HospitalMagnesium [Mass/Vol]1.7 mg/dL1.6 - 2.6 mg/dLMemorial Hospital Of GardenaNo Panel Informationon 56-24-2037Pozhzmdowngkcy and review of laboratory resultsAbOhioHealth Van Wert HospitalInterpretation and review of laboratory resultsUniversity Hospitals Portage Medical CenterOSMercy Health Tiffin HospitalOSMercy Health Tiffin HospitalPHOSPHATE, INORGANICon 26-01-2102Kwapzucoo [Mass/Vol]2.0 mg/dLLow2.2 - 4.6 mg/dLOur Lady of Mercy Hospital - AndersonInterpretation and review of laboratory resultsNoParkview Health Bryan HospitalPhosphate [Mass/Vol]2.8 mg/dL2.2 - 4.6 mg/dLOur Lady of Mercy Hospital - AndersonPT,INR,PTTon 94-36-2046kJMX Coag (PPP) [Time]31.0 sOSU [facility] Medical CenterINR Coag (Bld) [Relative time]1.1 {INR}[facility] Interpretation and review of laboratory resultsAbOhioHealth Van Wert Hospital PT Coag (PPP) [Time]14.4 [facility] URINE CULTUREOrdered By: Raven Campos on 02-41-8501Mknoplcj identified Cx Nom (Unsp spec)No GrowthOSU [facility] CBC,PLATELETSon 53-67-6835Hikjrgkezfp distribution width (RBC) [Ratio]12.8 %10.9 - 14.3 %[facility] - AndersonHematocrit (Bld) [Volume fraction]42.8 %39.6 - 48.8 %[facility] - AndersonHemoglobin (Bld) [Mass/Vol]13.3 g/dLLow13.4 - 16.8 g/dLOur Lady of Mercy Hospital - AndersonInterpretation and review of laboratory resultsAbnormBarberton Citizens HospitalH (RBC) [Entitic mass]28.9 pg26.1 - 33.3 pgOSU [facility] Medical CenterMCHC (RBC) [Mass/Vol]31.1 g/dLLow31.9 - 36.5 g/dLOur Lady of Mercy Hospital - AndersonMCV (RBC) [Entitic vol]92.8 fL79.0 - 94.5 [facility] HospitalPlatelet mean volume (Bld) [Entitic vol]10.3 fL8.7 - 12.3 [facility] HospitalPlatelets (Bld) [#/Vol]188 10*3/uL146 - 337 K/[facility] Memorial HospitalRBC (Bld) [#/Vol]4.61 10*6/uLOur Lady of Mercy Hospital - AndersonWBC (Bld) [#/Vol]16.61 10*3/uLHigh3.73 - 10.10 K/[facility] HospitalCHEM 7 (LYTES,BUN,CREA,GLUC)Ordered By: Kaylah Mc on 46-01-3544Jphyk gap [Moles/Vol]15 mmol/L7 - 17 mmol/[facility] Chloride [Moles/Vol]103 mmol/L98 - 108 mmol/[facility] CantonCO2 [Moles/Vol]23 mmol/L21 - 31 mmol/[facility] CantonCreatinine [Mass/Vol] 5.95 mg/dLHigh0.70 - 1.30 mg/dLOur Lady of Mercy Hospital - AndersonGFR/1.73 sq M.predicted CKD-EPI (S/P/Bld) [Vol rate/Area]11Low>=60 mL/min/1.11i6VEXOur Lady of Mercy Hospital - AndersonComment on above:Reported eGFR is based on the CKD-EPI 2021 equation using creatinine, age, and sex.Glucose [Mass/Vol]165 mg/mKKzzi05 - 99 mg/dLOur Lady of Mercy Hospital - AndersonInterpretation and review of laboratory resultsAbOhioHealth Van Wert HospitalOsmolality Calc [Osmolality]305[facility] CenterPotassium [Moles/Vol]4.6 mmol/L3.5 - 5.0 mmol/[facility] Campusodium [Moles/Vol] 136 mmol/L135 - 145 mmol/[facility] CantonUrea nitrogen [Mass/Vol]52 mg/dLHigh7 - 25 mg/dLOur Lady of Mercy Hospital - AndersonUrea nitrogen/Creatinine [Mass ratio]9 mg/mgMemorial Hospital Of GardenaCHEM 7 (LYTES,BUN,CREA,GLUC)Ordered By: Kehinde Gutierrez on 67-42-0481Omyuf gap [Moles/Vol]24 mmol/LHigh7 - 17 mmol/[facility] CantonChloride [Moles/Vol]100 mmol/L98 - 108 mmol/[facility] CantonCO2 [Moles/Vol]16 mmol/LLow21 - 31 mmol/[facility] CantonCreatinine [Mass/Vol]8.08 mg/dL High0.70 - 1.30 mg/dLOur Lady of Mercy Hospital - AndersonGFR/1.73 sq M.predicted CKD-EPI (S/P/Bld) [Vol rate/Area]7Low>=60 mL/min/1.36w1WSJOur Lady of Mercy Hospital - AndersonComment on above:Reported eGFR is based on the CKD-EPI 2021 equation using creatinine, age, and sex.Glucose [Mass/Vol]164 mg/cMSbdk33 - 99 mg/dLOur Lady of Mercy Hospital - AndersonInterpretation and review of laboratory resultsAbOhioHealth Van Wert HospitalOsmolality Calc [Osmolality]305[facility] CenterPotassium [Moles/Vol]5.0 mmol/L3.5 - 5.0 mmol/[facility] Campusodium [Moles/Vol] 135 mmol/L135 - 145 mmol/[facility] CantonUrea nitrogen [Mass/Vol]56 mg/dLHigh7 - 25 mg/dLOur Lady of Mercy Hospital - AndersonUrea nitrogen/Creatinine [Mass ratio]7 mg/mgMemorial Hospital Of GardenaLAVENDER TOP TUBE on 92-52-0877UVXDetwiler Memorial HospitalMAGNESIUMon 98-39-4648Qfqvqnavwmmyyi and review of laboratory resultsNoParkview Health Bryan HospitalMagnesium [Mass/Vol] 1.8 mg/dL1.6 - 2.6 mg/dLMemorial Hospital Of Gardena Interpretation and review of laboratory resultsNoParkview Health Bryan Hospital Magnesium [Mass/Vol]1.6 mg/dL1.6 - 2.6 mg/dLOur Lady of Mercy Hospital - AndersonNo Panel Informationon 46-36-9467TAVDetwiler Memorial HospitalPHOSPHATE, INORGANICon 80-81-3658Liigqwmrewwqqr and review of laboratory resultsAbOhioHealth Van Wert HospitalPhosphate [Mass/Vol]4.9 mg/dLHigh2.2 - 4.6 mg/dLOur Lady of Mercy Hospital - AndersonPT,INR,PTTon 01-79-7403tWNG Coag (PPP) [Time]33.0 [facility] HospitalINR Coag (Bld) [Relative time]1.3 {INR}[facility] Interpretation and review of laboratory resultsAbOhioHealth Van Wert Hospital PT Coag (PPP) [Time]15.7 [facility] Portable XR Chest Viewson 60-34-2041RFEQZJGAOU: No acute findings. RADIOLOGYEXAM: XR CHEST PORTABLE, 05/17/2022 14:39 PM COMPARISON: May 15, 2022 CLINICAL INDICATIONS: hypoxia RELEVANT CLINICAL HISTORY: FINDINGS: (Adequate technique) Implanted Devices: None Thorax: Lungs are clear. No pneumothorax or effusion. Stable cardiomegaly. Raheem York DO - 05/17/2022 EXAM: XR CHEST PORTABLE, 05/17/2022 14:39 PM COMPARISON: May 15, 2022 CLINICAL INDICATIONS: hypoxia RELEVANT CLINICAL HISTORY: FINDINGS: (Adequate technique) Implanted Devices: None Thorax: Lungs are clear. No pneumothorax or effusion. Stable cardiomegaly. IMPRESSION IMPRESSION: No acute findings. [facility] CenterRadiology Study observation (narrative)[facility] CenterPortable XR Chest ViewsOrdered By: Raheem Sanz on 71-99-1008YJDDetwiler Memorial Hospital Work Phone: URINALYSISOrdered By: Neville Isaac on 05-17-2022 Appearance (U)CloudyAbnormalClearODetwiler Memorial HospitalComment on above: Results may be inaccurate due to color interference. Clinical correlation recommended.Bacteria LM Ql (Urine sed)ABSENTABSENTOSMercy Health Tiffin HospitalColor (U)RedAbnormalYellowOur Lady of Mercy Hospital - AndersonComment on above:Results may be inaccurate due to color interference. Clinical correlation recommended. Epithelial cells.squamous LM Ql (Urine sed)ABSENT1/hpf = 1+, 2-5/hpf = 2+, 0/hpf = 0+, ABSENTOSU [facility] CenterGlucose Test strip (U) [Mass/Vol]Negative NegativeOSMercy Health Tiffin HospitalComment on above:Results may be inaccurate due to color interference. Clinical correlation recommended.Interpretation and review of laboratory resultsAbnormalODetwiler Memorial HospitalKetones (U) [Mass/Vol]TraceAbnormalNegativeOur [facility] AndersonComment on above:Results may be inaccurate due to color interference. Clinical correlation recommended. Leukocyte esterase Test strip Ql (U)LargeAbnormalNegativeOur Lady of [facility]cy Hospital - AndersonComment on above:Results may be inaccurate due to color interference. Clinical correlation recommended.Nitrite Ql (U)NegativeNegativeOur Lady of [facility] Hospital - AndersonComment on above:Results may be inaccurate due to color interference. Clinical correlation recommended.pH (U)5.0 [pH]5.0 - 7.0OSMercy Health Tiffin HospitalComment on above:Results may be inaccurate due to color interference. Clinical correlation recommended.Protein (U) [Mass/Vol]mg/dL AbnormalNegativeOSMercy Health Tiffin HospitalComment on above:Results may be inaccurate due to color interference. Clinical correlation recommended.RBC (U) [#/Vol]LargeAbnormalNegativeOSMercy Health Tiffin HospitalComment on above:Results may be inaccurate due to color interference. Clinical correlation recommended. RBC LM.HPF (Urine sed) [#/Area]/[HPF]Abnormal0 - 2 /HPFOSU [facility] Specific gravity (U) [Rel density]1.016OS[facility] CenterComment on above:Results may be inaccurate due to color interference. Clinical correlation recommended.Urobilinogen (U) [Mass/Vol]0.2 E.U./dL0.2 E.U/dL, 1.0 E.U/dLOSU [facility] CenterComment on above:Results may be inaccurate due to color interference. Clinical correlation recommended.WBC LM.HPF (Urine sed) [#/Area] /[HPF]Abnormal0 - 5 /HPFOSU [facility] CenterOSMercy Health Tiffin HospitalURINE CULTUREOrdered By: Vinnie Tiwari on 52-07-2520Zrggblvu identified Cx Nom (Unsp spec)No GrowthOSU [facility] CenterOSMercy Health Tiffin HospitalCBC,PLATELETSon 38-57-5210Tcfccpprpnr distribution width (RBC) [Ratio]12.9 %10.9 - 14.3 %[facility] AndersonHematocrit (Bld) [Volume fraction]46.5 %39.6 - 48.8 %[facility] AndersonHemoglobin (Bld) [Mass/Vol]14.7 g/dL13.4 - 16.8 g/dLOur Lady of [facility]cy Hospital - AndersonInterpretation and review of laboratory resultsAbnormalORegency Hospital Cleveland WestH (RBC) [Entitic mass]28.3 pg26.1 - 33.3 pgOSU [facility] Medical CenterHC (RBC) [Mass/Vol]31.6 g/dLLow31.9 - 36.5 g/dLOur Lady of [facility] Hospital - AndersonMCV (RBC) [Entitic vol]89.6 fL79.0 - 94.5 fLODetwiler Memorial HospitalPlatelet mean volume (Bld) [Entitic vol]10.3 fL8.7 - 12.3 [facility] HospitalPlatelets (Bld) [#/Vol]188 10*3/uL146 - 337 K/uLOur Lady of Mercy Hospital - AndersonRBC (Bld) [#/Vol]5.19 10*6/uLU [facility] CenterWBC (Bld) [#/Vol] 12.55 10*3/uLHigh3.73 - 10.10 K/uLU [facility] CenterOSMercy Health Tiffin HospitalCHEM 7 (LYTES,BUN,CREA,GLUC)Ordered By: Alma Pena on 20-41-0084Lhkvn gap [Moles/Vol]14 mmol/L7 - 17 mmol/[facility] CantonChloride [Moles/Vol]103 mmol/L98 - 108 mmol/[facility] CantonCO2 [Moles/Vol]22 mmol/L21 - 31 mmol/[facility] CantonCreatinine [Mass/Vol]6.09 mg/dLHigh 0.70 - 1.30 mg/dLOur Lady of [facility] Hospital - AndersonGFR/1.73 sq M.predicted CKD-EPI (S/P/Bld) [Vol rate/Area]10Low>=60 mL/min/1.40w4ZYBOur Lady of Mercy Hospital - AndersonComment on above:Reported eGFR is based on the CKD-EPI 2020 equation using creatinine, age, and sex.Glucose [Mass/Vol]134 mg/iGZkjl24 - 99 mg/dLOur Lady of [facility] Hospital - AndersonInterpretation and review of laboratory resultsAbnormSt. John of God HospitalOsmolality Calc [Osmolality]298[facility] CenterPotassium [Moles/Vol]4.9 mmol/L3.5 - 5.0 mmol/[facility] Barberton Campusodium [Moles/Vol] 134 mmol/KLcg408 - 145 mmol/[facility] CantonComment on above:Results inconsistent with previous resultsUrea nitrogen [Mass/Vol]49 mg/dLHigh7 - 25 mg/dLOur Lady of [facility] Hospital - AndersonUrea nitrogen/Creatinine [Mass ratio]8 mg/mgOur Lady of [facility] Hospital - AndersonOSMercy Health Tiffin HospitalCHEM 7 (LYTES,BUN,CREA,GLUC)on 08-47-4470Ihluz gap [Moles/Vol]17 mmol/L7 - 17 mmol/[facility] Chloride [Moles/Vol]106 mmol/L98 - 108 mmol/[facility] CantonCO2 [Moles/Vol]22 mmol/L21 - 31 mmol/[facility] CantonCreatinine [Mass/Vol] 5.23 mg/dLHigh0.70 - 1.30 mg/dLOur Lady of [facility] Hospital - AndersonGFR/1.73 sq M.predicted CKD-EPI (S/P/Bld) [Vol rate/Area]13Low>=60 mL/min/1.06u3THPOur Lady of [facility] AndersonComment on above:Reported eGFR is based on the CKD-EPI 2020 equation using creatinine, age, and sex.Glucose [Mass/Vol]116 mg/sAPnyt69 - 99 mg/dLOur Lady of [facility] Hospital - AndersonInterpretation and review of laboratory resultsAbnormalODetwiler Memorial HospitalOsmolality Calc [Osmolality]305[facility] CenterPotassium [Moles/Vol]4.6 mmol/L3.5 - 5.0 mmol/[facility] Barber[facility] Campusodium [Moles/Vol] 140 mmol/L135 - 145 mmol/[facility] CantonUrea nitrogen [Mass/Vol]42 mg/dLHigh7 - 25 mg/dLOur Lady of [facility]cy Hospital - AndersonUrea nitrogen/Creatinine [Mass ratio]8 mg/mgOur Lady of [facility] Hospital - AndersonEXTRA MICROon 97-14-6587DTLDetwiler Memorial HospitalLT BLUE TOP TUBEon 15-00-6940DSCDetwiler Memorial HospitalLYTES (NA, K, CL) - URINE - RANDOMon 38-78-7731Ezzauxgs (24H U) [Moles/Vol]68 mmol/[facility] CantonPotassium (24H U) [Moles/Vol]36.7 mmol/[facility] Sodium (24H U) [Moles/Vol]55 mmol/[facility] CantonThe reference range has not been established for random urine specimens. The test result should be i ntegrated into the clinical context for interpretation.[facility] MAGNESIUMon 28-05-2480Wzpprblackgwku and review of laboratory resultsNormSt. John of God HospitalMagnesium [Mass/Vol]1.7 mg/dL1.6 - 2.6 mg/dLOur Lady of [facility] Hospital - AndersonNOV CORONAVIRUS PCROrdered By: Edson Candelario on 05-16-2022 SARS-CoV-2 (COVID-19) RNA ESTELITA+probe Ql (Unsp spec)Not detectedNOT DETECTEDOSMercy Health Tiffin HospitalComment on above:[facility] Negative results do not preclude [...] deteriorating. SARS-CoV-2 (COVID-19) RNA ESTELITA+probe Ql (Unsp spec)This test was performed using real time PCR and has been approved for the qualitative detection of SARS-CoV-2 nucleic acid. The test has been authorized by the FDA under an emergency use authorization for use by authorized laboratories.[facility] AndersonNo Panel Informationon 05-16-3782SVDEssex County Hospital OSMOLALITY, URINEon 25-76-2398Lqqnqegdaorzos and review of laboratory results NormalOur Lady of [facility] Hospital - AndersonOsmolality (U) [Osmolality]320 mosm/kgOSMercy Health Tiffin HospitalThe reference range has not been established for random urine specimens. The test result should be integrated into the clinical context for interpretation.[facility] GardenaPROCALCITONINon 05-72-8156Reurbzsvsgflqa and review of laboratory resultsNormSt. John of God HospitalProcalcitonin [Mass/Vol]0.18 ng/mL<0.50[facility] Comment on above:Procalcitonin is an FDA-approved assay to help manage antibiotic treatment in patients with sepsis/septic shock and lower respiratory tract infections. Specifically, trending procalcitonin in these situations can be used to reduce the duration of antibiotics. Please refer to the Procalcitonin Guideon the Antimicrobial Stewardship Webpage for more guidance on how to use and trend procalcitonin invarious clinical settings. [email or web address]/departments/Pharmacy/_[email or web address]/WopiFrame.as px?sourcedoc=/departments/Pharmacy/Documents/GDLProcalcitonin.docx&action=defaul t&DefaultItemOpen=1 Two common cutoffs associated with bacterial infections are as follows. Respiratory tract infections: >0.25 ng/mL Sepsis/septic shock: >0.5 ng/mL Procalcitonin should not be used alone as a diagnostic tool, however. All procalcitonin results should be interpreted in association with the patients clinical condition and all laboratory findings. [facility] AndersonPT,INR,PTTon 04-92-6932xYSX Coag (PPP) [Time]30.3 [facility] HospitalINR Coag (Bld) [Relative time]1.1 {INR}[facility] AndersonInterpretation and review of laboratory resultsNoParkview Health Bryan HospitalPT Coag (PPP) [Time]14.1 [facility] CenterARS-CoV-2 (COVID-19) RNA ESTELITA+probe Ql (Unsp spec)Ordered By: Edson Candelario on 45-86-7712Rkaulzndqvrfkv and review of laboratory resultsNoLos Angeles General Medical CenterTACROLIMUS LEVEL, TROUGH (PRE DRUG LEVEL)Ordered By: Mariama Nick on 59-71-4739Vcbsichieadlco and review of laboratory resultsNoParkview Health Bryan HospitalTacrolimus (Bld) [Mass/Vol]4.1 ng/mLBone Marrow Transplant: 4.0-12.0, Therapeutic: 5.0-15.0[facility] AndersonMethod performed is a chemiluminescent microparticle immunoasssay on the [employer] Maintenance Equipment Operator i2000. The range is based on experience at [facility] and users should be aware that target concentrations vary widely depending on concomitant therapy, time post- transplant, and desired degree of immunosuppression.[facility] CenterOSU [facility] CenterURINE PROTEIN/CREA RATIO, RANDOMon 60-60-1074Nslxucjsoo (24H U) [Mass/Vol]59.82 mg/dLOSU [facility] CenterProtein Unsp time (U) [Mass/Vol]111 mg/dLOSU [facility] CenterProtein/Creatinine (U) [Mass ratio] 1.856 mg/gOSU [facility] CenterUS for transplanted kidney limitedon 64-01-4187CBCGPRGPJN: 1. 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 This appears to be stable or decreased from previous CT of the abdomen and pelvis within limitations of modality difference. 2. The renal transplant is otherwise unremarkable in appearance. No perinephric fluid collections. 3. Resistive indices are mildly elevated. Otherwise normal appearing vascular flow in the transplant kidney. RADIOLOGYEXAM: US RENAL TRANSPLANT SCAN, 05/16/2022 15:19 PM [...] Abdomen: No ascites in the visualized images. Rosendo Wright MD - 05/16/2022 EXAM: US RENAL TRANSPLANT [...] appearing vascular flow in the transplant kidney. ercy [facility] Tiffin HospitalRadiology Study observation (narrative)[facility] AndersonUS for transplanted kidney limitedOrdered By: Rosendo Matute on 75-67-5983BEYDetwiler Memorial Hospital Work Phone: cbc AND ELECTRONIC DIFFon 10-27-0741Ydbrxslbb (Bld) [#/Vol]10*3/uL0.00 - 0.09 K/uLOSMercy Health Tiffin HospitalBasophils/100 WBC (Bld) 0.2 %[facility] AndersonDifferential cell count method Nom (Bld)Electronic DifferentialOur Lady of Mercy Hospital - AndersonEosinophils (Bld) [#/Vol]10*3/uL0.00 - 0.48 K/uLOSMercy Health Tiffin HospitalEosinophils/100 WBC (Bld)0.0 %[facility] AndersonErythrocyte distribution width (RBC) [Ratio]12.8 %10.9 - 14.3 %[facility] AndersonHematocrit (Bld) [Volume fraction]46.0 %39.6 - 48.8 %[facility] AndersonHemoglobin (Bld) [Mass/Vol]14.6 g/dL13.4 - 16.8 g/dLOur Lady of Mercy Hospital - AndersonImmature granulocytes (Bld) [#/Vol]0.07 10*3/uL<=0.08OSMercy Health Tiffin HospitalImmature granulocytes/100 WBC (Bld)0.4 %[facility] AndersonInterpretation and review of laboratory resultsAbnormalODetwiler Memorial HospitalLymphocytes (Bld) [#/Vol]1.49 10*3/uL0.83 - 3.57 K/uLOur Lady of Mercy Hospital - AndersonLymphocytes/100 WBC (Bld)9.4 %[facility] SpringfieldH (RBC) [Entitic mass]28.2 pg26.1 - 33.3 pgOSU [facility] Medical CenterHC (RBC) [Mass/Vol]31.7 g/dLLow31.9 - 36.5 g/dLOSU [facility]xner Medical CenterMCV (RBC) [Entitic vol]89.0 fL 79.0 - 94.5 fLODetwiler Memorial HospitalMonocytes (Bld) [#/Vol]1.45 10*3/uLHigh 0.24 - 0.93 K/[facility] HospitalMonocytes/100 WBC (Bld)9.2 %[facility] AndersonNeutrophils (Bld) [#/Vol]12.77 10*3/uLHigh1.57 - 6.19 K/[facility] HospitalNucleated RBC/100 WBC (Bld) [Ratio]0.0 %<=0.2 /100 WBCOur Lady of Mercy Hospital - AndersonPlatelet mean volume (Bld) [Entitic vol]9.9 fL8.7 - 12.3 fL [facility] AndersonPlatelets (Bld) [#/Vol]250 10*3/uL146 - 337 K/[facility]ome[facility] Memorial HospitalRBC (Bld) [#/Vol]5.17 10*6/uLOur Lady of [facility] Anderson Segmented neutrophils/100 WBC (Bld)80.8 %[facility] AndersonWBC (Bld) [#/Vol]15.81 10*3/uLHigh3.73 - 10.10 K/[facility] HospitalOSMercy Health Tiffin HospitalCBC AUTO DIFFon 06-08-8198ALCE #0.0 103/ulNormal0.0-0.1The [facility] CenterComment on above:Performed By: #### CBC #### [facility] [address] [place] [address] Dr. Dwight Johnsonsophils/100 WBC (Bld)0.3 %Normal0.2-2.0The [facility] Comment on above:Performed By: #### CBC #### [facility] [address] [place] [address] Dr. Dwight Hernandez #0.1 103/ulNormal0.0-0.7The [facility] CenterComment on above: Performed By: #### CBC #### [facility] [address] [address] [address] Dwight Chavezosinophils/100 WBC (Bld)0.8 %Critically low0.9-7.0The [facility] on above:Performed By: #### CBC #### [facility] [address] [place] [address] Dr. Dwight Chavezrythrocyte distribution width (RBC) [Ratio]12.7 %Bakurw56.0-15.0 The [facility] CenterComment on above:Performed By: #### CBC #### [facility] [address] [place] [address] Dr. Dwight WatersHematocrit (Bld) [Volume fraction]43.5 %Zmdkqc55.0-54.0[facility] on above:Performed By: #### CBC #### [facility] [address] [place] [address] Dr. Dwight WatersHemoglobin (Bld) [Mass/Vol]14.4 g/wFPeayky18.0-18.0[facility] on above:Performed By: #### CBC #### [facility] [address] [place] [address] Dr. Dwight Russell #0.02 10e3/ulNormal0.00-0.03The [facility] on above:Performed By: #### CBC #### [facility] [address] [place] [address] Dr. Dwight Russell %0.2 %Normal0.0-0.5The [facility] on above: Performed By: #### CBC #### [facility] [address] [place] [address] Dr. Dwight DickersonMPH #1.5 103/ulNormal1.2-3.8[facility] on above:Performed By: #### CBC #### [facility] [address] [place] [address] Dr. Dwight Dickersonmphocytes/100 WBC (Bld)12.5 %Critically low20.5-60.0[facility] on above:Performed By: #### CBC #### [facility] [address] [address] [address] Dwight Frances DIFF REQNONormalThe [facility] CenterComment on above: Performed By: #### CBC #### [facility] [address] [address] [address] Dwight Florian (RBC) [Entitic mass]28.6 nsFinvjc07.9-34.0The [facility] CenterComment on above:Performed By: #### CBC #### [facility] [address] [address] [address] Dwight Florian (RBC) [Mass/Vol]33.1 g/dDKcoatb57.9-35.2The [facility] on above:Performed By: #### CBC #### [facility] [address] [place] [address] Dr. Dwight Florian (RBC) [Entitic vol]86.3 xCNsedlv34.0-94.0[facility] on above:Performed By: #### CBC #### [facility] [address] [address] [address] Dwight Walsh #1.0 103/ulCritically high0.3-0.8ThMemorial Health System [facility] Comment on above:Performed By: #### CBC #### [facility] [address] [place] [address] Dr. Dwight Alejandreocytes/100 WBC (Bld)8.2 %Normal1.7-12.0[facility] Comment on above:Performed By: #### CBC #### [facility] [address] [place] [address] Dr. Dwight Moran #9.1 103/ulCritically high1.4-6.5ThMemorial Health System [facility] Comment on above:Performed By: #### CBC #### [facility] [address] [place] [address] Dr. Dwight Haroutrophils/100 WBC (Bld)78.0 %Critically high43.0-75.0The Frank HospitalComment on above:Performed By: #### CBC #### [facility] [address] [address] [address] Dwight Bolanoslet mean volume (Bld) [Entitic vol]9.8 fLNormal9.5-13.5The [facility] CenterComment on above:Performed By: #### CBC #### [facility] [address] [address] [address] Dwight WatersPLT251 103/bsJhssuv932-700Its [facility] CenterComment on above: Performed By: #### CBC #### [facility] [address] [address] [address] Dwight WatersRBC5.04 106/ulNormal4.70-6.10The [facility] CenterComment on above:Performed By: #### CBC #### [facility] [address] [address] [address] Dwight WatersWBC11.6 103/ulCritically high4.0-11.0The [facility] CenterComment on above:Performed By: #### CBC #### [facility] [address] [address] [address] Dwight WatersCHEM 6 (MARGAUX LERNER)on 20-18-8151Pqhno gap [Moles/Vol]12 mmol/L7 - 17 mmol/[facility] CantonChloride [Moles/Vol]105 mmol/L98 - 108 mmol/[facility] CantonCO2 [Moles/Vol]26 mmol/L21 - 31 mmol/[facility] CantonCreatinine [Mass/Vol]2.85 mg/dLHigh0.70 - 1.30 mg/dLOur Lady of Mercy Hospital - AndersonGFR/1.73 sq M.predicted CKD-EPI (S/P/Bld) [Vol rate/Area]26 Low>=60 mL/min/1.66n5YFKOur Lady of Mercy Hospital - AndersonComment on above:Reported eGFR is based on the CKD-EPI 2020 equation using creatinine, age, and sex.Potassium [Moles/Vol]4.6 mmol/L3.5 - 5.0 mmol/LOSU [facility] Memorial Hospitalodium [Moles/Vol] 138 mmol/L135 - 145 mmol/L[facility] CenterUrea nitrogen [Mass/Vol]32 mg/dLHigh7 - 25 mg/dLOSU [facility] CenterUrea nitrogen/Creatinine [Mass ratio]11 mg/mgOSU [facility] CenterCT ABD/PELVIS WO CONon 43-57-1919LG ABD/PELVIS WO CONEXAM: CT ABD/PELVIS WO CON 05/15/2022 1:50 AM [...] kidney with moderate right-sided hydronephrosis. Atrophic lower sioux kidneys with moderate right-sided hydronephrosis. Multiple nonobstructive [...] kidney with moderate right-sided hydronephrosis. Atrophic lower sioux kidneys with moderate right-sided hydronephrosis. Multiple nonobstructive right renal calculi measuring up to 8 mm. FOLLOW-UP: Follow-up as clinically indicated. Electronically authenticated by: LYNDSAY JEAN Date: 2022-05-15 05:04[facility] FoundationCovid-19 PCR (CVDTBH)on 91-83-8065GKXU-CoV-2 (COVID-19) RNA ESTELITA+probe Ql (Unsp spec)Not detectedNormalNOT DETECTEDThe [facility] Comment on above:Result Comment: When diagnostic testing is negative, the [...] for this test is supported by the [employer] Tender of Health and Human Service's [...] which the test may no longer be used).Performed By: #### URTPCR #### [facility] [address] [place] [address] Dr. Dwight WatersGLUCOSEon 58-61-3015Bjbubpj [Mass/Vol]141 mg/wEGora29 - 99 mg/dL [facility] CenterGOLD TOP TUBEon 65-77-9265NLT [facility] HEPATIC FUNCTION PANELon 40-15-2821Efgbomc [Mass/Vol]4.3 g/dL3.5 - 5.0 g/dLOSU [facility] CenterALP [Catalytic activity/Vol]85 U/L32 - 126 U/LOSU [facility] CenterALT [Catalytic activity/Vol]13 U/L10 - 52 U/[facility] CENTERU [facility] CenterAST [Catalytic activity/Vol]15 U/L10 - 39 U/[facility] CENTERU [facility] Bilirubin [Mass/Vol]0.8 mg/dL<1.5[facility] CenterBilirubin.direct [Mass/Vol]0.2 mg/dL<0.3[facility] CenterInterpretation and review of laboratory resultsNormalODetwiler Memorial HospitalProtein [Mass/Vol]7.3 g/dL6.4 - 8.3 g/dLOSU [facility] CenterLIPASEon 28-59-1490Llwynp [Catalytic activity/Vol]8 U/LLow11 - 82 U/[facility] CENTERU [facility] CenterNo Panel Informationon 10-29-4709Mwmrpuuflxvnbo and review of laboratory resultsAbnormalODetwiler Memorial HospitalOSU [facility] CenterPROF 14(COMP METB)on 67-44-0234Mxmccih [Mass/Vol]3.8 g/dLNormal3.4-5.0The [facility] CenterComment on above:Performed By: #### URTPCR #### [facility] [address] [place] [address] Dr. Dwight WatersAlbumin/Globulin [Mass ratio]1.1 {ratio}NormalThe [facility] CenterComment on above:Performed By: #### URTPCR #### [facility] [address] [place] [address] Dr. Dwight WeaverP [Catalytic activity/Vol]92 U/UPgpbun01-209Bxt [facility] CenterComment on above:Performed By: #### URTPCR #### [facility] [address] [place] [address] Dr. Dwight Nixon [Catalytic activity/Vol]25 U/XBjlnnn78-06Ris [facility] CenterComment on above:Performed By: #### URTPCR #### [facility] [address] [place] [address] Dr. Dwight Alvarez gap [Moles/Vol]14.6 mmol/LNormalThe [facility] Comment on above:Performed By: #### URTPCR #### [facility] [address] [place] [address] Dr. Dwight Zamudio [Catalytic activity/Vol]17 U/HHarwnu83-43Hnw [facility] CenterComment on above:Performed By: #### URTPCR #### [facility] [address] [place] [address] Dr. Dwight WatersBilirubin [Mass/Vol]0.6 mg/dLNormal0.2-1.0The [facility] Comment on above:Performed By: #### URTPCR #### [facility] [address] [place] [address] Dr. Dwight WatersCalcium [Mass/Vol]9.9 mg/dLNormal8.5-10.1The [facility] Comment on above:Performed By: #### URTPCR #### [facility] [address] [place] [address] Dr. Dwight WatersChloride [Moles/Vol]106 mmol/CLgtyyd23-313Tfv [facility] Comment on above:Performed By: #### URTPCR #### [facility] [address] [place] [address] Dr. Dwight WatersCO2 [Moles/Vol]24.2 mmol/HVjvrak21.0-32.0The [facility] Comment on above:Performed By: #### URTPCR #### [facility] [address] [place] [address] Dr. Dwight WatersCreatinine [Mass/Vol]1.58 mg/dLCritically high0.70-1.30The [facility] CenterComment on above:Performed By: #### URTPCR #### [facility] [address] [place] [address] Dr. Quintanilla ChangEGFR-AF CRVBWEEH21 mL/min/1.58s0Jjcwpxabva low>=60The [facility] CenterComment on above:Performed By: #### URTPCR #### [facility] [address] [place] [address] Dr. Dwight ChavezGFR-NON AF NZZTMPLD40 mL/min/1.81i4Cyucfyjojc low>=60The [facility] CenterComment on above:Performed By: #### URTPCR #### [facility] [address] [place] [address] Dr. Dwight WatersGlobulin (S) [Mass/Vol]3.5 g/dLNormalThe [facility] CenterComment on above:Performed By: #### URTPCR #### [facility] [address] [place] [address] Dr. Dwight WatersGlucose [Mass/Vol]162 mg/dLCritically kyad34-871Igh [facility] CenterComment on above:Performed By: #### URTPCR #### [facility] [address] [place] [address] Dr. Dwight WatersPotassium [Moles/Vol]3.8 mmol/LNormal3.5-5.1The [facility] Comment on above:Performed By: #### URTPCR #### [facility] [address] [address] [address] Dwight WatersProtein [Mass/Vol]7.3 g/dLNormal6.4-8.2The [facility] Comment on above:Performed By: #### URTPCR #### [facility] [address] [address] [address] Dwight WatersSodium [Moles/Vol]141 mmol/HIuekpn144-379Fgy [facility] Comment on above:Performed By: #### URTPCR #### [facility] [address] [address] [address] Dwight WatersUrea nitrogen [Mass/Vol]22.0 mg/dLCritically high7.0-18.0The [facility] CenterComment on above:Performed By: #### URTPCR #### [facility] [address] [address] [address] Dwight Jhaveri nitrogen/Creatinine [Mass ratio]13.9 mg/mgNormalThe [facility] CenterComment on above:Performed By: #### URTPCR #### [facility] [address] [address] [address] Dwight WatersPortable XR Chest Viewson [id number]: No acute cardiopulmonary disease RADIOLOGYEXAM: XR CHEST PORTABLE, 05/15/2022 22:52 PM COMPARISON: May 09, 2020 CLINICAL INDICATIONS: productive cough RELEVANT CLINICAL HISTORY: FINDINGS: (Adequate technique) Implanted Devices: None Thorax: No acute findings in the chest. RADIOLOGYVladislav Omer MD - 05/15/2022 EXAM: XR CHEST PORTABLE, 05/15/2022 22:52 PM COMPARISON: May 09, 2020 CLINICAL INDICATIONS: productive cough RELEVANT CLINICAL HISTORY: FINDINGS: (Adequate technique) Implanted Devices: None Thorax: No acute findings in the chest. IMPRESSION IMPRESSION: No acute cardiopulmonary disease [facility] [place] [facility] CenterRadiology Study observation (narrative)[facility] [place] [facility] CenterPortable XR Chest ViewsOrdered By: Vladislav Omer on [id number] Memorial HospitalURINE DIPSTICK; REFLEX MICROSCOPY; REFLEX CULTURE PERFORMABLEon 32-77-8505Acgldjaacl (U)ClearClearODetwiler Memorial HospitalColor (U)YellowYellowOSU [facility] [place] Medical CenterGlucose Test strip (U) [Mass/Vol]100 mg/dLAbnormalNegativeOur Lady of Mercy Hospital - AndersonInterpretation and review of laboratory resultsAbOhioHealth Van Wert HospitalKetones (U) [Mass/Vol] NegativeNegativeOur Lady of Mercy Hospital - AndersonLeukocyte esterase Test strip Ql (U) LargeAbnormalNegativeOur Lady of Mercy Hospital - AndersonNitrite Ql (U)NegativeNegativeOur Lady of Mercy Hospital - AndersonpH (U)6.0 [pH]5.0 - 7.0[facility] [place] [facility] CenterProtein (U) [Mass/Vol]100 mg/dLAbnormalNegativeOur Lady of Mercy Hospital - AndersonRBC (U) [#/Vol] LargeAbnormalNegativeOhioHealth Dublin Methodist Hospitalpecific gravity (U) [Rel density] 1.010[facility] [place] Medical CenterUrobilinogen (U) [Mass/Vol]0.2 E.U./dL0.2 E.U/dL, 1.0 E.U/dLOSU [facility] [place] Medical CenterOSU [facility] [place] [facility] CenterURINE MICROSCOPIC WITH REFLEX TO CULTUREOrdered By: Rey Bro on 12-54-7004Vluwenpq LM Ql (Urine sed)ABSENTABSENTOur Lady of Mercy Hospital - AndersonEpithelial cells.squamous LM Ql (Urine sed)ABSENT1/hpf = 1+, 2-5/hpf = 2+, 0/hpf = 0+, ABSENTOSU [facility] [place] Medical CenterInterpretation and review of laboratory resultsAbSCCI Hospital Lima LM.HPF (Urine sed) [#/Area]/[HPF]Abnormal0 - 2 /HPFOSU [facility] [place] Medical CenterWBC LM.HPF (Urine sed) [#/Area]10-82Uhxhgjuc0 - 5 /HPFOSU [facility] [place] Medical CenterOSMercy Health Tiffin HospitalCT ABD/PELVIS WO CONon 12-12-3225ND ABD/PELVIS WO CON Begin Addendum #[address] Lund 3:25 PM EST 05/11/2022. Begin Addendum #2 IMPRESSION below should also contain the followin. 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 The lower sioux kidneys are progressively atrophic bilaterally compared to [...] 06/14/2020 are no longer present. The lower sioux distal right ureter is decompressed beyond this [...] surgical history for renal graft and lower sioux right urinary drainage, as a discrete ureteroneocystostomy is not identified, and the graft may be draining via a ureteroureterostomy. Urology consultation recommended. 3. The lower sioux kidneys are bilaterally atrophic, with right renal sinus calcifications consistent with nonobstructing right lower sioux renal calculi up to 6 mm.NormalThe [facility] AUTO DIFFon 14-95-0807VHPN #0.1 103/ulNormal 0.0-0.1The [facility] CenterComment on above:Performed By: #### URTPCR #### [facility] [address] [place], [place] [address] Dr. Dwight Johnsonsophils/100 WBC (Bld)0.8 %Normal0.2-2.0The [facility] Comment on above:Performed By: #### URTPCR #### [facility] [address] [address] [address] Dwight Hernandez #0.2 103/ulNormal0.0-0.7The [facility] CenterComment on above: Performed By: #### URTPCR #### [facility] [address] [place] [address] Dr. Dwight Chavezosinophils/100 WBC (Bld)2.5 %Normal0.9-7.0The [facility] Comment on above:Performed By: #### URTPCR #### [facility] [address] [place] [address] Dr. Dwight Chavezrythrocyte distribution width (RBC) [Ratio]12.5 %Vswcxx40.0-15.0 The [facility] CenterComment on above:Performed By: #### URTPCR #### [facility] [address] [place] [address] Dr. Dwight WatersHematocrit (Bld) [Volume fraction]48.3 %Nhujvu40.0-54.0The [facility] CenterComment on above:Performed By: #### URTPCR #### [facility] [address] [place] [address] Dr. Dwight WatersHemoglobin (Bld) [Mass/Vol]15.3 g/rZGldvwv70.0-18.0The [facility] CenterComment on above:Performed By: #### URTPCR #### [facility] [address] [place] [address] Dr. Dwight Russell #0.01 10e3/ulNormal0.00-0.03The [facility] CenterComment on above:Performed By: #### URTPCR #### [facility] [address] [place] [address] Dr. Dwight Russell %0.2 %Normal0.0-0.5The [facility] CenterComment on above: Performed By: #### URTPCR #### [facility] [address] [place] [address] Dr. Dwight Santana #1.9 103/ulNormal1.2-3.8The [facility] CenterComment on above:Performed By: #### URTPCR #### [facility] [address] [place] [address] Dr. Dwight Dickersonmphocytes/100 WBC (Bld)29.8 %Vyxveu24.5-60.0The [facility] CenterComment on above:Performed By: #### URTPCR #### [facility] [address] [place] [address] Dr. Dwight Frances DIFF REQNONormalThe [facility] CenterComment on above: Performed By: #### URTPCR #### [facility] [address] [place] [address] Dr. Dwgiht Florian (RBC) [Entitic mass]28.2 adPyligd53.9-34.0The [facility] CenterComment on above:Performed By: #### URTPCR #### [facility] [address] [place] [address] Dr. Dwight Florian (RBC) [Mass/Vol]31.7 g/mJJihycw55.9-35.2The [facility] CenterComment on above:Performed By: #### URTPCR #### [facility] [address] [place] [address] Dr. Dwight Centeno (RBC) [Entitic vol]89.1 kNDhpohb90.0-94.0The [facility] CenterComment on above:Performed By: #### URTPCR #### [facility] [address] [place] [address] Dr. Dwight Walsh #0.6 103/ulNormal0.3-0.8The [facility] CenterComment on above:Performed By: #### URTPCR #### [facility] [address] [place] [address] Dr. Dwight Alejandreocytes/100 WBC (Bld)9.0 %Normal1.7-12.0The [facility] on above:Performed By: #### URTPCR #### [facility] [address] [place] [address] Dr. Dwight Moran #3.6 103/ulNormal1.4-6.5The [facility] CenterComment on above:Performed By: #### URTPCR #### [facility] [address] [place] [address] Dr. Dwight Haroutrophils/100 WBC (Bld)57.7 %Uufnau32.0-75.0The [facility] CenterComment on above:Performed By: #### URTPCR #### [facility] [address] [place] [address] Dr. Dwight Bolanoslet mean volume (Bld) [Entitic vol]9.9 fLNormal9.5-13.5The [facility] CenterComment on above:Performed By: #### URTPCR #### [facility] [address] [place] [address] Dr. Dwight WatersPLT249 103/ifVdzbqb736-600Bnv [facility] CenterComment on above: Performed By: #### URTPCR #### [facility] [address] [place] [address] Dr. Dwight WatersRBC5.42 106/ulNormal4.70-6.10The [facility] CenterComment on above:Performed By: #### URTPCR #### [facility] [address] [place] [address] Dr. Dwight WatersWBC6.3 103/ulNormal4.0-11.0The [facility] CenterComment on above: Performed By: #### URTPCR #### [facility] [address] [place] [address] Dr. Quintnailla ChangEAlexander URINE PROFILEon 71-56-7418Mhjsivupr Ql (U)Unable to perform testing due to color interference.AbnormalNEGATIVEThe [facility] CenterComment on above:Performed By: #### URTPCR #### [facility] [address] [place] [address] Dr. Dwight WatersClarity (U)TURBIDAbnormalCLEARThe [facility] CenterComment on above:Performed By: #### URTPCR #### [facility] [address] [place] [address] Dr. Dwight Sanchez (U)REDAbnormalYELLOWThe Alpena HospitalComment on above: Performed By: #### URTPCR #### [facility] [address] [place] [address] Dr. Dwight Trujillo micrscopic examination will be performed if indicated. NormalThe Alpena HospitalComment on above:Performed By: #### URTPCR #### [facility] [address] [place] [address] Dr. Dwight Sosaose Ql (U)Unable to perform testing due to color interference.AbnormalNEGATIVERegency Hospital Cleveland West HospitalComment on above:Performed By: #### URTPCR #### [facility] [address] [place] [address] Dr. Dwight WatersHemoglobin Ql (U)Unable to perform testing due to color interference.AbnormalNEGATIVERegency Hospital Cleveland West HospitalComment on above:Performed By: #### URTPCR #### [facility] [address] [place] [address] Dr. Dwight WatersKetones Ql (U)Unable to perform testing due to color interference.AbnormalNEGATIVERegency Hospital Cleveland West HospitalComment on above:Performed By: #### URTPCR #### [facility] [address] [place] [address] Dr. Dwight WatersLEUKOCYTESUnable to perform testing due to color interference. AbnormalNEGATIVERegency Hospital Cleveland West HospitalComment on above:Performed By: #### URTPCR #### [facility] [address] [place] [address] Dr. Dwight WatersNitrite Ql (U)Unable to perform testing due to color interference.AbnormalNEGATIVERegency Hospital Cleveland West HospitalComment on above:Performed By: #### URTPCR #### [facility] [address] [place] [address] Dr. Dwight WaterspH (U)6.5 [pH]Normal5-9The [facility] HospitalComment on above: Performed By: #### URTPCR #### [facility] [address] [place] [address] Dr. Dwight WatersSPEC GRAVITY1.691Qrzbky4.005-<=1.025The [facility] CenterComment on above:Performed By: #### URTPCR #### [facility] [address] [place] [address] Dr. Dwight Lott PROTEINRe to perform testing due to color interference. NormalNEGATIVE/ TRACEThe [facility] CenterComment on above:Performed By: #### URTPCR #### [facility] [address] [place] [address] Dr. Dwight Sanchez MICRO INDINDICATEDNormalThe [facility] CenterComment on above: Performed By: #### URTPCR #### [facility] [address] [place] [address] Dr. Dwight HolmanINOGENRe to perform testing due to color interference. Normal0.2 - 1.0The [facility] CenterComment on above:Performed By: #### URTPCR #### [facility] [address] [place] [address] Dr. Dwight Hatfield 14(COMP METB)on 13-96-8348Rdrsyij [Mass/Vol]3.8 g/dLNormal 3.4-5.0The [facility] CenterComment on above:Performed By: #### CMP #### [facility] [address] [place] [address] Dr. Dwight WatersAlbumin/Globulin [Mass ratio]1.1 {ratio}NormalThe [facility] CenterComment on above:Performed By: #### CMP #### [facility] [address] [place] [address] Dr. Dwight Macedo [Catalytic activity/Vol]106 U/BDyniyx58-905Cqi [facility] CenterComment on above:Performed By: #### CMP #### [facility] [address] [place] [address] Dr. Dwight Nixon [Catalytic activity/Vol]30 U/MYuaxrr27-45Gqi [facility] CenterComment on above:Performed By: #### CMP #### [facility] [address] [place] [address] Dr. Yilan ChangAnion gap [Moles/Vol]11.7 mmol/LNormalThe [facility] Comment on above:Performed By: #### CMP #### [facility] [address] [place] [address] Dr. Dwight WatersAST [Catalytic activity/Vol]16 U/XQeefno46-68KqbHarrison Community HospitalComment on above:Performed By: #### CMP #### [facility] [address] [place] [address] Dr. Dwight WatersBilirubin [Mass/Vol]0.6 mg/dLNormal0.2-1.0The [facility] Comment on above:Performed By: #### CMP #### [facility] [address] [place] [address] Dr. Dwight WatersCalcium [Mass/Vol]9.1 mg/dLNormal8.5-10.1[facility] Comment on above:Performed By: #### CMP #### [facility] [address] [place] [address] Dr. Dwight WatersCO2 [Moles/Vol]27.4 mmol/SCupakl29.0-32.0The [facility] Comment on above:Performed By: #### CMP #### [facility] [address] [place] [address] Dr. Dwight WatersCreatinine [Mass/Vol]1.18 mg/dLNormal0.70-1.30The [facility] CenterComment on above:Performed By: #### CMP #### [facility] [address] [place] [address] Dr. Dwight ChavezGFR-AF HAITIAN>60Normal>=60The [facility] CenterComment on above:Performed By: #### CMP #### [facility] [address] [place] [address] Dr. Dwight ChavezGFR-NON AF HAITIAN>60Normal>=60The [facility] CenterComment on above:Performed By: #### CMP #### [facility] [address] [place] [address] Dr. Dwight WatersGlobulin (S) [Mass/Vol]3.6 g/dLNormalThe Frank HospitalComment on above:Performed By: #### CMP #### [facility] [address] [address] [address] Dwight WatersGlucose [Mass/Vol]192 mg/dLCritically wlkc32-924Iei [facility] CenterComment on above:Performed By: #### CMP #### [facility] [address] [address] [address] Dwight WatersPotassium [Moles/Vol]4.1 mmol/LNormal3.5-5.1The [facility] Comment on above:Performed By: #### CMP #### [facility] [address] [address] [address] Dwight WatersProtein [Mass/Vol]7.4 g/dLNormal6.4-8.2[facility] Comment on above:Performed By: #### CMP #### [facility] [address] [address] [address] Dwight WatersSodium [Moles/Vol]142 mmol/WPcnehl728-096Vrp [facility] Comment on above:Performed By: #### CMP #### [facility] [address] [address] [address] Dwight WatersUrea nitrogen [Mass/Vol]17.0 mg/dLNormal7.0-18.0The [facility] CenterComment on above:Performed By: #### CMP #### [facility] [address] [address] [address] Dwight Jhaveri nitrogen/Creatinine [Mass ratio]14.4 mg/mgNoAdams County Regional Medical CenterComment on above:Performed By: #### CMP #### [facility] [address] [address] [address] Dwight WatersURINE MICROSCOPIC ONLYon 78-29-9526NRRYMQPPMGHF SEENNormalNONE SEENHarrison Community HospitalComment on above:Performed By: #### URTPCR #### [facility] [address] [address] [address] Dwight WatersBacteria identified Cx Nom (U)NOT INDICATEDNoAdams County Regional Medical CenterComment on above:Performed By: #### URTPCR #### [facility] [address] [place] [address] Dr. Dwight Lopez SEENNormalNONE SEENSamaritan North Health Center on above:Performed By: #### URTPCR #### [facility] [address] [address] [address] Dwight Pateystals LM Nom (Urine sed)NONE SEENNormalNONE SEENHarrison Community HospitalComuniversity of [facility] on above:Performed By: #### URTPCR #### [facility] [address] [address] [address] Dwight Montanezthelial cells LM Ql (Urine sed)RARENormalNONE SEEN /RAREHarrison Community HospitalComuniversity of [facility] on above:Performed By: #### URTPCR #### [facility] [address] [place] [address] Dr. Dwight WeeksCOUSBLACK SEENNormalNONE SEENSamaritan North Health Center on above:Performed By: #### URTPCR #### [facility] [address] [place] [address] Dr. Dwight OlmsteadC (U) [#/Vol]/uLAbnormal0-2[facility] on above:Performed By: #### URTPCR #### [facility] [address] [place] [address] Dr. Dwight WatersWBCBLACK SEENNormalNONE SEENSamaritan North Health Center on above: Performed By: #### URTPCR #### [facility] [address] [place] [address] Dr. Dwight Bateman (Potassium)on 16-20-9859Tvlfujrpw [Moles/Vol]4.4 mmol/LNormal 3.7-5.3[facility] on above:Performed By: #### K #### [facility] [address] [place], [facility] Dependency Director: Kehinde Woodward MaineGeneral Medical Centeriumon 90-13-2472Jzcuhuwwy [Moles/Vol]4.4 mmol/L3.7 - 5.3 mmol/LMmercy health anderson hospitaly [facility] Work Phone: Hemoglobin and Hematocrit, Bloodon 10-24-2019 Hematocrit (Bld) [Volume fraction]23.6 %Low40.7 - 50.3 %[place], [place] Hemoglobin (Bld) [Mass/Vol]7.3 g/dLLow13 - 17 g/dLWatersmeet, [place] Interpretation and review of laboratory resultsAbnoPoint [place], [place] Hgb/Hcton 34-29-7215Mntnkxnlqi (Bld) [Volume fraction]23.6 %Low40.7-50.3[facility] HospitalComment on above:Performed By: #### HH #### [address] [place] [address] Dependency Director: Kehinde Woodward MDHemoglobin (Bld) [Mass/Vol]7.3 g/dLLow13.0-17.0 [facility] Healthcare SystemComment on above:Performed By: #### HH #### [address] [place], [place] [address] Dependency Director: Kehinde Woodward MDHemoglobinon 41-22-5775Utgclnvxif (Bld) [Mass/Vol]7.5 g/dLLow13.0-17.0[facility] Healthcare SystemComment on above:Performed By: #### HGB #### [address] [place], [place] [address] Dependency Director: Kehinde Woodward MDHemoglobin (Bld) [Mass/Vol]7.5 g/dLLow13 - 17 g/dLWatersmeet, KYInterpretation and review of laboratory resultsAbnoHarmony, KYHemoglobinon 40-48-1129Vyaaaqksvw (Bld) [Mass/Vol]8.3 g/dL Low13.0-17.0[facility] HospitalComment on above:Performed By: #### HGB #### [address] [place], [place] [address] Dependency Director: Kehinde Woodward MDHemoglobin (Bld) [Mass/Vol]8.3 g/dLLow13 - 17 g/dLOhioHealth Marion [facility] Hospital, KYInterpretation and review of laboratory resultsAbGrandview, KYHemoglobinon 59-05-0077Sdskzdqfxs (Bld) [Mass/Vol]8.0 g/dL Low13.0-17.0[facility] HospitalComment on above:Performed By: #### HGB #### [facility] [address] [place], [place] [address] Dependency Director: Kehinde Woodward MDHemoglobin A1Con 45-68-5461WuG8r (Bld) [Mass fraction]%Low4.8-5.9[facility] Healthcare SystemComment on above:Result Comment: The ADA and AACC recommend providing the estimated average glucose result to permit better patient understanding of their HBA1c result.Performed By: #### GLYHGB #### [address] [place], [place] [address] Dependency Director: Kehinde Woodward MDGlucose [Mass/Vol]mg/dLmg/dLOhioHealth Marion [facility] Hospital, [place] Comment on above:The ADA and AACC recommend providing the estimated average glucose result to permit better patient understanding of their HBA1c result. HbA1c (Bld) [Mass fraction]%Low4.8 - 5.9 %[facility], KYInterpretation and review of laboratory resultsAbnoPoint [place], KYHemoglobinon 08-01-2019 Hemoglobin (Bld) [Mass/Vol]8.1 g/dLLow13.0-17.0[facility] HospitalComment on above:Performed By: #### HGB #### [facility] [address] [place], [place] [address] Dependency Director: Kehinde Woodward MDHemoglobin (Bld) [Mass/Vol]8.1 g/dLLow13 - 17 g/dLOhioHealth Marion General Hospital, KYInterpretation and review of laboratory resultsAbKeenan Private Hospital, KYHgb/Hcton 89-77-2421Kcuekzyucj (Bld) [Volume fraction]24.3 % Low40.7-50.3[facility] HospitalComment on above:Performed By: #### HH #### [address] [place], [place] [id number] Dependency Director: Kehinde Woodward MDHemoglobin (Bld) [Mass/Vol]7.4 g/dLLow13.0-17.0 [facility] HospitalComment on above:Performed By: #### HH #### [address] [place], [place] [id number] Dependency Director: Kehinde Woodward MDHemoglobinon 34-29-8060Qruqdqgqrz (Bld) [Mass/Vol]7.2 g/dLLow13.0-17.0[facility] HospitalComment on above:Performed By: #### HGB #### [address] [place], [place] [id number] Dependency Director: Kehinde Woodward MDK (Potassium)on 40-79-6760Lsvgrozhd [Moles/Vol] 3.6 mmol/LLow3.7-5.3Mmercy health anderson hospitaly [facility] HospitalComment on above:Performed By: #### K #### [address] [place], [place] [id number] Dependency Director: Kehinde Woodward MDOtheron 44-44-2466SGNNPCEREG: 1. Cirrhotic morphology of the liver. No [...] correlate with renal function tests. Invalid Interpretation CodeRADIOLOGYEXAM: US ABDOMEN RUQ/LIVER/GB, 10/19/2018 07:35 AM CLINICAL INDICATIONS: screen for HCC Screening for HCC; K74.60:Cirrhosis of liver with ascites, unspecified hepatic cirrhosis type R18.8:Cirrhosis of liver with ascites, unspecified hepatic cirrhosis type COMPARISON: None. TECHNIQUE: Real-time ultrasound evaluation of the right upper quadrant was performed utilizing a curved array transducer. Dupl ex scan is performed. Color flow images and [...] velocity is approximately -15 cm/sec which is diminishedand reversed. Gall Bladder: The gallbladder is not very well distended. There is diffuse echogenic material filling the gallbladder lumen, some of which demonstrate posterior acoustic shadowing. Thisis suggestive of multiple gallstones in the gallbladder. [...] is no hydronephrosis. Ascites: Perihepatic ascites is noted.Invalid Interpretation CodeRADIOLOGYUserLupillo - 10/19/2018 8:41 AM EST EXAM: US [...] The visualized pancreas is sonographically normal in appearance.Liver: Liver is coarse in echotexture with nodular contour. Morphology is concerning for cirrhosis.There is no focal lesion in the hepatic parenchyma. No intrahepatic biliary dilatation. Doppler ultr asound demonstrates in flow direction hepatofugal flow in [...] correlate with renal function tests. Invalid Interpretation CodeRADIOLOGYABO/RH(D) TYPINGon 13-35-8955TDC and Rh group Nom (Bld)O POSITIVEInvalid Interpretation CodeLAB, OSUAFP TUMOR MARKERon 09-09-6619JGM.tumor marker mass conc5.5 ng/mLInvalid Interpretation Code<8.5LAB, OSUALBUMINon 35-49-6469Spjnthr mass conc3.0 g/dLLow3.5 - 5 g/dLLAB, OSUALCOHOL (ETHANOL),BLOODon 47-21-5193Wedvziz Ql (Bld)<10Invalid Interpretation Code<10 mg/dLLAB, OSUComment on above:For Medical Purposes Only, Non forensicALP ALT AST on 51-73-5809VZK enzyme act/bmt984 U/LHigh32 - 126 U/LLAB, OSUALT enzyme act/vol 21 U/LInvalid Interpretation Code10 - 52 U/LLAB, OSUAST enzyme act/vol34 U/L Invalid Interpretation Code14 - 40 U/LLAB, OSUBILIRUBIN, TOTAL AND DIRECTon 79-51-3592Unlieatpd mass conc1.8 mg/dLHigh<1.5LAB, OSUBilirubin.direct mass conc 0.7 mg/dLHigh<0.3LAB, OSUCALCIUMon 20-33-5788Fvolzhb mass conc9.3 mg/dLInvalid Interpretation Code8.6 - 10.5 mg/dLLAB, OSUCBC, EDIF, PLATELETon 10-12-2018 Basophils Auto #/vol (Bld)0.06 10*3/uLInvalid Interpretation Code0 - 0.09 K/uL LAB, OSUBasophils/100 WBC Auto (Bld)1.1 %Invalid Interpretation CodeLAB, [facility] Differential cell count method Nom (Bld)Electronic DifferentialInvalid Interpretation CodeLAB, OSUEosinophils Auto #/vol (Bld)0.27 10*3/uLInvalid Interpretation Code0 - 0.48 K/uLLAB, OSUEosinophils/100 WBC Auto (Bld)5.0 % Invalid Interpretation CodeLAB, OSUErythrocyte distribution width Auto Ratio (RBC)15.1 %High10.9 - 14.3 %LAB, OSUHematocrit Auto Volume Fraction (Bld)31.3 % Low39.6 - 48.8 %LAB, OSUHemoglobin mass conc (Bld)10.3 g/dLLow13.4 - 16.8 g/dL LAB, OSUImmature granulocytes #/vol (Bld)0.01 10*3/uLInvalid Interpretation Code 0 - 0.07 K/uLLAB, OSUImmature granulocytes/100 WBC (Bld)0.2 %Invalid Interpretation CodeLAB, OSULymphocytes Auto #/vol (Bld)1.67 10*3/uLInvalid Interpretation Code0.83 - 3.57 K/uLLAB, OSULymphocytes/100 WBC Auto (Bld)30.9 % Invalid Interpretation CodeLAB, OSUMCH Auto Entitic mass (RBC)30.3 pgInvalid Interpretation Code26.1 - 33.3 pgLAB, OSUMCHC Auto mass conc (RBC)32.9 g/dL Invalid Interpretation Code31.9 - 36.5 g/dLLAB, OSUMCV Auto Entitic volume (RBC) 92.1 fLInvalid Interpretation Code79 - 94.5 fLLAB, OSUMonocytes Auto #/vol (Bld) 0.54 10*3/uLInvalid Interpretation Code0.24 - 0.93 K/uLLAB, OSUMonocytes/100 WBC Auto (Bld)10.0 %Invalid Interpretation CodeLAB, OSUNeutrophils Manual cnt #/vol (Bld)2.85 K/uLInvalid Interpretation Code1.57 - 6.19 K/uLLAB, OSUNucleated RBC/100 WBC Ratio (Bld)0.0 %Invalid Interpretation CodeLAB, OSUPlatelet mean volume Auto Entitic volume (Bld)10.4 fLInvalid Interpretation Code8.7 - 12.3 fL LAB, OSUPlatelets Auto #/vol (Bld)101 10*3/uJXvk717 - 337 K/uLLAB, OSUComment on above:Automated platelet count confirmed by manual slide reviewRBC Auto #/vol (Bld)3.40 10*6/uLLowLAB, OSUSegmented neutrophils/100 WBC Manual cnt (Bld)52.8 % Invalid Interpretation CodeLAB, OSUWBC Auto #/vol (Bld)5.40 10*3/uLInvalid Interpretation Code3.73 - 10.1 K/uLLAB, OSUCHEM 7 (LYTES,BUN,CREA,GLUC)on 46-91-6304Xchty gap 3 molar conc16 mmol/LInvalid Interpretation Code7 - 17 mmol/LLAB, OSUChloride molar conc93 mmol/LLow98 - 108 mmol/LLAB, OSUCO2 molar conc24 mmol/LInvalid Interpretation Code22 - 30 mmol/LLAB, OSUCreatinine mass conc5.26 mg/dLHigh0.7 - 1.3 mg/dLLAB, OSUGFR/1.73 sq M.predicted MDRD vol rate/area12 mL/min/{1.73_m2}Low>60 mL/min/1.73sqMLAB, OSUGFR/1.73 sq M.predicted MDRD vol rate/area14 mL/min/{1.73_m2}Low>60 mL/min/1.73sqMLAB, OSUGlucose mass xzho368 mg/dFMnbi41 - 99 mg/dLLAB, OSUOsmolality Xildoxywal313Jjiczda Interpretation CodeLAB, OSUPotassium molar conc3.1 mmol/LLow3.5 - 5 mmol/LLAB, OSUSodium molar adtq110 mmol/MUia361 - 143 mmol/LLAB, OSUUrea nitrogen mass conc 34 mg/dLHigh7 - 22 mg/dLLAB, OSUUrea nitrogen/Creatinine mass ratio6 mg/mg Invalid Interpretation CodeLAB, OSUCMV IGG ABon 14-52-0947GKO IgG QlNegative Invalid Interpretation CodeNegativeLAB, OSUETHANOL (ALCOHOL), URINEon 10-12-2018 Ethanol Ql (U)NONE DETECTEDInvalid Interpretation Code<10 mg/dLLAB, OSUFERRITIN on 17-30-3752Anwefoum mass exct215 ng/aFDbxb94 - 322 ng/mLLAB, OSUHEMOGLOBIN A1C on 67-00-4743Nldzkbg glucose Estimated from glycated hemoglobin mass conc (Bld) 85 mg/dLInvalid Interpretation CodeLAB, OSUHemoglobin A1c/Hemoglobin.total mass fraction (Bld)4.6 %Low4.7 - 5.6 %LAB, OSUInterpretation and review of laboratory resultsAbnormalInvalid Interpretation CodeLAB, OSUHEP A AB, TOTAL (IGG+IGM)on 64-55-5040KOA IgG+IgM Ql (S)PositiveAbnormalNegativeLAB, OSUHEP B CORE AB,TOTAL(IGG+IGM)on 51-12-8172IER core IgG+IgM Ql (S)NegativeInvalid Interpretation CodeNegativeLAB, OSUHEPATITIS B SURFACE ANTIBODYon 88-47-8482DCZ surface Ab IA Ql (S)NegativeInvalid Interpretation CodeNegativeLAB, OSUHEPATITIS B SURFACE ANTIGENon 17-67-2192JDL surface Ag Ql (S)NegativeInvalid Interpretation CodeNegativeLAB, OSUHEPATITIS C ANTIBODYon 49-51-3525XKH Ab Ql (S)NegativeInvalid Interpretation CodeNegativeLAB, OSUHIV 1 AND 2 ANTIBODIESon 39-28-9786COZ 1+2 Ab+HIV1 p24 Ag IA QlNONREACTIVEInvalid Interpretation Code NONREACTIVELAB, OSUIRON/IRON BINDING/TRANSFERRINon 47-21-9028Sjkh binding capacity mass uvjf573PcpSDR, OSUIron mass krky248 ug/dLInvalid Interpretation CodeLAB, OSUIron saturation mass oloiowzk34 %High20 - 55 %LAB, OSUTransferrin mass gmhk928 mg/kRKyi020 - 400 mg/dLLAB, OSUOtheron 45-36-9681Itjhcxfsskvlre and review of laboratory resultsAbnormalInvalid Interpretation CodeLAB OSUPSA, SCREENINGon 57-44-6266Gdoouxop specific Ag mass conc0.36 ng/mLInvalid Interpretation Code<4.00LAB, OSUPT,INR,PTTon 25-98-6460uRQN Coag time (Bld)44.0 sHighLAB, OSUINR Coag RelTime (Bld)1.7 {INR}HighLAB, OSUProthrombin time (PT) Coag time (PPP)19.7 sHighLAB, OSUTOXICOLOGY DRUG SCREEN, SERUMon 21-26-7935Xrrpm of abuse panel - Blood by Screen methodFor Medical Purposes Only, Non-forensic, screen results are presumptive. No confirmatory testing will follow.Invalid Interpretation CodeLAB, OSUComment on above:This Liquid Chromatography Mass Spectrometry (LC/MS/MS) test was developed and its performance characteristics determined by [facility] at [facility]. It has not been cleared or approved by the FDA. The laboratory is regulated under CLIA as qualified to perform high-complexity testing. This test is used for clinical purposes. It should not be regarded as investigational or for research. The following drugs with their lowest level of detection in ng /ml(LOD) are included in this screen: 6 Monoacetylmorphine(300), 7 Aminoflunitrazepam(25), 7 Aminoclonazepam(50), Alphahydroxytriazolam(400), Alphahydrozyalprazolam(200), Alprazolam(50), Amitriptyline(50), Amphetamine(250), Atenolol(500), Barbiturates(1000), Benzoylecgonine(50), Buprenorphine(50), Bupropion(25), Caffeine(22154), Chlordiazepoxide(50), Chlorpheniramine(100), Chlorpromazine(50), Citalopram(100), Clonazepam(200), Cocaine(25), Codeine(200), Cotinine(500), Desakylflurazepam(50), Desip ramine(50), Desmethyldoxepin(100), Dextromethorphan(100), Diazepam(100), Dihydrocodeine(100), Diltazem(50), Diphenhydramine(100), Doxepin(100), EDDP/methadone(100), Ephedrine/Pseudoephedrine(100), Fentanyl(25), Flunitrazepam(100), Fluoxetine(200), Flurazepam(50), Gabapentin(1500), Haloperidol(25), Hydrocodone(100), Hydromorphone(200), Imipramine(50), Ketamine(25), Lidocaine(25), Lorazepam(100), Lysergide(LSD)(25), Maprotiline(200), MDA(250), MDMA(250), Meperidine(50), Methadone(50), Methamphetamine(500), Methylphenidate(50), Metoprolol(50), Morphine(200), Nalbuphine(50), Naloxone(200), Norbuprenorphine(300), Nordiazepam(100), Norfentanyl(100), Norpropoxyphene(50), Nortriptyline(50), Olanzapine(200), Oxazepam(200), Oxycodone(100), Oxymorphone(200), Phencyclidine(PCP)(25), Pheniramine(25), Pregabalin(1500), Promethazine(50), Propoxyphene(100), Propanolol(50) Quetiapine(25), Quinidine(500), Ranitidine(500), Risperidone(100), Sertraline(50), Temazepam(100), Thioridazine(100), Tramadol(50), Trazodone(25, Triazolam(100), Venlafaxine(50), Verapamil(100), Zolpidem(200)Drugs of abuse panel - Blood by Screen methodNONE DETECTEDInvalid Interpretation CodeLAB, OSUTOXICOLOGY SCREEN URINE - [facility] 87-57-4053Tnozz identified Screen Nom (U)For Medical Purposes Only, Non-forensic, screen results are presumptive. No confirmatory testing will follow.Invalid Interpretation Stephanie Jamil on above:This Liquid Chromatography Mass Spectrometry (LC/MS/MS) test was developed and its performance characteristics determined by [facility] Laboratory at [facility]. It has not been cleared or approved by the FDA. The laboratory is regulated under CLIA as qualified to perform high-complexity testing. This test is used for clinical purposes. It should not be regarded as investigational or for research. The following drugs with their lowest level of detection in ng/ml(LOD) are included in this screen: 6 Monoacetylmorphine(300), 7 Aminoflunitrazepam(25), 7 Aminocl onazepam(50), Alphahydroxytriazolam(400), Alphahydrozyalprazolam(200), Alprazolam(50), Amitriptyline(50), Amphetamine(250), Atenolol(500), Barbiturates(200), Benzoylecgonine(50), Buprenorphine(500), Bupropion(25), Caffeine(44791), Cannabinoids(THC)(50), Chlordiazepoxide(50), Chlorpheniramine(100), Chlorpromazine(50), Citalopram(100), Clonazepam(200), Cocaine(25), [...] Temazepam(100), Thioridazine(100), Tramadol(50), Trazodone(25, Triazolam(100), Venlafaxine(50), Verapamil(100), Zolpidem(200)Drugs identified Screen Nom (U)LIDOCAINEInvalid Interpretation Code LAB, OSUURINE PROTEIN/CREAT RATIO, 24HRon 13-70-1120Vizoshetsg mass conc (24H U) 72.00 mg/dLInvalid Interpretation CodeLAB, OSUCreatinine mass conc (24H U)0.43 LowLAB, OSUInterpretation and review of laboratory resultsAbnormalInvalid Interpretation CodeLAB, OSUProtein mass/time (24H U)264HighLAB, OSUProtein Unsp time mass conc (U)44 mg/dLInvalid Interpretation CodeLAB, OSUProtein/Creatinine mass ratio (U)0.611Invalid Interpretation Codemg prot/mg creaLAB, OSUVITAMIN D (25-HYDROXY,TOTAL)on 77-85-1421Pczearz D+Metabolites mass conc12.8 ng/mLLow30 - 100 ng/mLLAB, OSUComment on above:<10 Deficiency 10-29 Insufficiency 30-100 Optimal Level >100 Possible ToxicityVOLUME MEASUREDon 07-80-7318TLLNQHOM37 Invalid Interpretation CodehrsLAB, OSUSpecimen volume (U)600 mLInvalid Interpretation Code0 - 6000 mLLAB, OSU Vital Signs Date TimeVital SignValuePerforming GgnefwelpHljewoyw44-03-3407 07:56-0400Body alcnfc412.2 Clyde Parker MD Work Phone: [phone] [place], [place] 0388210-22-2025 07:56-0400Body mass index (BMI) [Ratio]32.55 kg/m2Christiane Parker MD Work Phone: [phone] [place], [place] 0388210-22-2025 07:56-0400Body nwjypuhzalk09.1 [degF]Christiane Parker MD Work Phone: [phone] [place], [place] 0388210-22-2025 07:56-0400Body .26 kgChristiane Parker MD Work Phone: [phone] [place], [place] 0388210-22-2025 07:56-0400 Diastolic blood xysapyfv07 mm[Hg]Christiane Parker MD Work Phone: [phone] [place], [place] 0388210-22-2025 07:56-0400Heart rate91 /Ruby Parker MD Work Phone: [phone] [place], [place] 0388210-22-2025 07:56-0400Systolic blood pfafdhzf137 mm[Hg]Christiane Parker MD Work Phone: [phone] [place], [place] 0388210-21-2025 09:32-0400Body wissuk415.2 Emma Hernandez MD Work Phone: [phone]10-21-2025 09:32-0400Body mass index (BMI) [Ratio]32.58 kg/a9GjozzTony Hernandez MD Work Phone: [phone] [place], [place] [address]Kbobuyfzer41-10-3030 09:32-0400Body .35 kgTony Hernandez MD Work Phone: [phone] HospitalVcrxdkwzph02-95-8934 09:32-0400Heart rate90 /min Tony Hernandez MD Work Phone: [phone] [address]10-21-2025 09:32-0400Respiratory rate18 /minTony Hernandez MD Work Phone: [facility] HospitalOigvefckob06-50-4827 09:32-9349AnJ7% (BldA) [Mass fraction]95 %Tony Hernandez MD Work Phone: [facility] HospitalRkssnmdykc96-20-8512 10:33-0400Body ifmxef641.2 cmTpb Gutierrez 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 Work Phone: [phone]09-12-2025 10:33-0400Body mass index (BMI) [Ratio]32.41 kg/j5Jgawnvfsolange Gutierrez 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 Work Phone: [phone]09-12-2025 10:33-0400Body jecegpsmidf25.6 [degF]Rebeca Gutierrez 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 Work Phone: [phone]09-12-2025 10:33-0400Body kevyku99.85 kgThersolange Gutierrez 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 Work Phone: [phone]09-12-2025 10:33-0400 Diastolic blood mm[Hg]Rebeca Gutierrez 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 Work Phone: [phone]09-12-2025 10:33-0400Heart ablq509 /minThersolange Gutierrez 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 Work Phone: [phone]09-12-2025 10:33-0400Systolic blood aoydrtqo921 mm[Hg]Rebeca Gutierrez 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 Work Phone: [phone]09[facility]09-11-2025 08:38-0400Body .18 Suzanne Bruno RX SPECIALIST-C Work Phone: [facility]09-11-2025 08:38-0400 Body mass index (BMI) [Ratio]32.8 kg/m2Zuly Bruno RX SPECIALIST-C Work Phone: [phone] [place], [place] 0270209-11-2025 08:38-0400 Body chpxkcftcno31.8 [degF]Zuly Aichholz RX SPECIALIST-C Work Phone: [phone]09-11-2025 08:38-0400 Body .02 kgLisa Aichholz RX SPECIALIST-C Work Phone: [phone]09-11-2025 08:38-0400 Diastolic blood ksqznrev71 mm[Hg]Zuly Aichholz RX SPECIALIST-C Work Phone: [phone]09-11-2025 08:38-0400 Heart rate73 /minLisa Aichholz RX SPECIALIST-C Work Phone: [phone]09-11-2025 08:38-0400 Respiratory rate18 /minLisa Aichholz RX SPECIALIST-C Work Phone: [phone]09-11-2025 08:38-0400 Systolic blood mm[Hg]Zuly Aichholz RX SPECIALIST-C Work Phone: [phone]06-12-2025 10:38-0400 Diastolic blood qikpzsbs91 mm[Hg]Zuly Aichholz RX SPECIALIST Work Phone: [facility] HospitalCjqihqfpue46-10-4347 10:38-0400Systolic blood xseqhbhl051 mm[Hg]Zuly Aichholz RX SPECIALIST Work Phone: [facility] HospitalRkwyhzavty35-99-2521 10:07-0400Body mass index (BMI) [Ratio]31.95 kg/m2Lisa Aichholz RX SPECIALIST Work Phone: [facility] HospitalUkzkyyhczv18-22-8719 10:07-0400Body temperature 98.71 [degF]Zuly Aichholz RX SPECIALIST Work Phone: [facility] HospitalAfzedqtvxk00-24-0437 10:07-0400Body cihzpx96.53 kgLisa Aichholz RX SPECIALIST Work Phone: [facility] HospitalHvfgxhfoqk85-03-1013 10:07-0400Heart rate74 /min Zuly Torresjose e RX SPECIALIST Work Phone: [facility] HospitalLzscvrrjcx55-59-9642 10:07-0400Respiratory rate20 /minNidiasa Torresjose e RX SPECIALIST Work Phone: [facility]Lee[facility] HospitalZqqbcomzqj93-25-5564 10:07-5229HlO1% (BldA) [Mass fraction]96 %Zuly Torreslatishasaeed RX SPECIALIST Work Phone: [facility] HospitalBmuscjbeae13-38-3211 09:43-0400Body mbgydz899.2 Emma Hernandez MD Work Phone: [facility] HospitalXueqozocza64-51-5384 09:43-0400Body mass index (BMI) [Ratio]32.89 kg/q7ZwfvaTony Hernandez MD Work Phone: [facility] HospitalOaaikyuopd99-47-8327 09:43-0400Body .25 kgTony Hernandez MD Work Phone: [facility] HospitalIkvppfudcg46-13-1799 09:43-0400Heart rate80 /min Tony Hernandez MD Work Phone: [facility] HospitalYockyxmaih44-61-5581 09:43-0400Respiratory rate18 /minTony Hernandez MD Work Phone: [facility] HospitalQmvkwqzxoa70-44-9248 09:43-9878TiY1% (BldA) [Mass fraction]95 %Tony Hernandez MD Work Phone: [facility] HospitalYqozsfudfw39-47-4139 09:07-0400Body gqcufq218.2 Emma Hernandez MD Work Phone: [facility] HospitalOjonhxvneu38-75-1568 09:07-0400Body mass index (BMI) [Ratio]32.26 kg/q9SmdrtTony Hernandez MD Work Phone: [facility] HospitalJbkcspianz85-36-9830 09:07-0400Body yrjnhi46.44 kgTony Hernandez MD Work Phone: [phone] [place], [place] [address]Kastxzccha09-40-1335 09:07-0400Diastolic blood mm[Hg]Tony Hernandez MD Work Phone: [phone]04-01-2025 09:07-0400Heart rate86 /min Tony Hernandez MD Work Phone: [phone])[address] [place], [place] 6608704-01-2025 09:07-0400Respiratory rate18 /minTony Hernandez MD Work Phone: [phone])[address] [place], [place] 6608704-01-2025 09:07-9566FyC6% (BldA) [Mass fraction]95 %Tony Hernandez MD Work Phone: [phone])[address] [place], [place] 6608704-01-2025 09:07-0400Systolic blood rgixuuul357 mm[Hg]Tony Hernandez MD Work Phone: [phone])[address] [place], [place] 6608702-04-2025 11:01-0500Diastolic blood mm[Hg]Steph Orzech [facility]02-04-2025 11:01-0500Heart rate67 /minAurora Orzech [facility]02-04-2025 11:01-0500Respiratory rate16 /minAurora Orzech [facility]02-04-2025 11:01-0500Systolic blood zkpyhilj797 mm[Hg]Steph Orzech [facility]01-27-2025 09:32-0500Diastolic blood flcmosej05 mm[Hg]Zuly Bruno Work Phone: [facility]01-27-2025 09:32-0500 Heart rate62 /minZuly Bruno Work Phone: [phone] [place], [place] 3559301-27-2025 09:32-0500 Respiratory rate16 /minLisa Kristopherhholz Work Phone: [phone]-[facility]01-27-2025 09:32-0500 SaO2% (BldA) [Mass fraction]95 %Zuly Floresholz Work Phone: [facility]01-27-2025 09:32-0500 Systolic blood dyrlmyso342 mm[Hg]Zuly Floresholz Work Phone: 1([phone] [place], [place] 0270201-27-2025 06:58-0500 Body yauppg846.18 cmLisa Kiana Work Phone: [phone] [place], [place] 3559301-27-2025 06:58-0500 Body mavtxe39.35 kgLisa Floresholsaeed Work Phone: 1(340)075-[address] [place], [place] 0270201-16-2025 09:15-0500 Body detcfg151.18 cmSt. [facility]01-16-2025 09:15-0500Body mass index (BMI) [Ratio]30.8 kg/f7VryxirijjSt. Mary'[facility]01-16-2025 09:15-0500Body uawxbd39.35 kgSt. [facility]01-16-2025 09:15-0500Diastolic blood srsjgkhu75 mm[Hg][facility] 12-15-2024 09:15-0500Heart rate82 /[facility] 12-15-2024 09:15-0500Systolic blood optuwutw179 mm[Hg][facility]12-24-2024 09:35-0500Diastolic blood sntppbku41 mm[Hg]Steph Orzech [facility]12-24-2024 09:35-0500Heart rate68 /minAurora Orzech [facility]12-24-2024 09:35-0500Systolic blood unqopvnn989 mm[Hg]Steph Orzech [facility]12-09-2024 14:29-0500Body .2 Suzanne Bruno RX SPECIALIST Work Phone: [facility] HospitalDsqyzkdkne18-93-6938 14:29-0500Body mass index (BMI) [Ratio]31.83 kg/m2Zuly Torresjose e RX SPECIALIST Work Phone: [facility] HospitalCcpdilsheg37-55-9021 14:29-0500Body temperature 98.2 [degF]Zuly Torresjose e RX SPECIALIST Work Phone: [place] [address]Wvrckqjfln88-60-8538 14:29-0500Body limakq45.17 kgLisa Bruno RX SPECIALIST Work Phone: [facility] HospitalNiulkqifiw43-55-6548 14:29-0500Diastolic blood kxgerbas83 mm[Hg]Zuly Torresjose e RX SPECIALIST Work Phone: [facility] HospitalPkrxvimhks61-34-0008 14:29-0500Heart rate63 /min Zuly Marissaz RX SPECIALIST Work Phone: [place] [address]Lrqiulhcao10-48-4179 14:29-0500Respiratory rate18 /minLisa Bruno RX SPECIALIST Work Phone: [facility] HospitalZacfbabitj12-93-4865 14:29-8656FzI4% (BldA) [Mass fraction]96 %Zuly Floreslatishaz RX SPECIALIST Work Phone: [place] [address]Qkqfymdasu00-10-7825 14:29-0500Systolic blood rxhiusvm505 mm[Hg]Zuly Floreslatishaz RX SPECIALIST Work Phone: [place] [address]Txfovxeyba90-30-9448 13:40-0400Blood Pressure LocationAlysjohn paul Montesinos [facility]10-10-2024 13:40-0400Diastolic blood oqzjnvbc51 mm[Hg]Clementina Galpaulette [facility]10-10-2024 13:40-0400Heart rate66 /minAlysha Jaguar [facility]10-10-2024 13:40-0400Systolic blood ectdxsjz022 mm[Hg]Clementina Galea [facility]09-24-2024 08:45-0400Body .2 Suzanne Kiana RX SPECIALIST Work Phone: [facility] HospitalRdvhkdiyig54-61-0125 08:45-0400Body mass index (BMI) [Ratio]30.26 kg/m2Nidia Kiana RX SPECIALIST Work Phone: [facility] HospitalUfofqehnkr17-77-9028 08:45-0400Body temperature 98.01 [degF]Zuly Bruno RX SPECIALIST Work Phone: [facility] HospitalSezhbeonja73-62-0827 08:45-0400Body yfytov88.64 kgNidia Kiana RX SPECIALIST Work Phone: [facility] HospitalHrwywsmhqg68-23-9711 08:45-0400Diastolic blood rmwdyanv73 mm[Hg]Zuly Kiana RX SPECIALIST Work Phone: [facility] HospitalTnoniflxrm16-39-1953 08:45-0400Heart rate61 /min Zuly Kiana RX SPECIALIST Work Phone: [facility] HospitalOjhyeztqym48-61-4721 08:45-0400Respiratory rate18 /minLi Kiana RX SPECIALIST Work Phone: [facility] HospitalKkoxceenno96-53-5378 08:45-3158OeB7% (BldA) [Mass fraction]96 %Zuly Kiana RX SPECIALIST Work Phone: [facility] HospitalFnsvfxqhnp09-86-0976 08:45-0400Systolic blood cffiwmlc311 mm[Hg]Zuly Bruno RX SPECIALIST Work Phone: [facility] HospitalYwbolkoqks27-29-1282 08:37-0400Body mass index (BMI) [Ratio]29.43 kg/o3FpdmdibRebeca Gutierrez 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 Work Phone: 1(271)[address] [place], [place] 9563907-19-2024 08:37-0400Body axmodjyuviv60.39 [degF]Rebeca Gutierrez 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 Work Phone: [phone])[address] [place], [place] 9563907-19-2024 08:37-0400Body taioev68.23 kgThersolange Gutierrez 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 Work Phone: [phone])[address] [place], [place] 9563907-19-2024 08:37-0400 Diastolic blood mm[Hg]Rebeca Gutierrez 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 Work Phone: 1(648)[address] [place], [place] 9563907-19-2024 08:37-0400Heart rate53 /minThersolange Gutierrez 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 Work Phone: 1([phone])[address] [place], [place] 956[address]07-19-2024 08:37-0400Systolic blood nyowehoi883 mm[Hg]Rebeca Gutierrez 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 Work Phone: [phone])[address]07-19-2024 08:36-0400Body mass index (BMI) [Ratio]29.43 kg/g3Wsdtwiy Sobotka DO Work Phone: [phone]07-19-2024 08:36-0400Body kvjsaaaohqb35.39 [degF]Daisha Sobotka DO Work Phone: 1([phone]-[facility]07-19-2024 08:36-0400Body ywwmxb69.23 kgLindsay Sobotka DO Work Phone: [phone]07-19-2024 08:36-0400 Diastolic blood yxxalmxy05 mm[Hg]Daisha Sobotka DO Work Phone: [phone]07-19-2024 08:36-0400Heart rate53 /minLindsay Sobotka DO Work Phone: [phone]07-19-2024 08:36-0400Systolic blood akakjprt054 mm[Hg]Daisha Max DO Work Phone: [phone]6255[facility]03-29-2024 09:07-0400 Diastolic blood tptkejbt46 mm[Hg]Candie Almaguer MD Work Phone: [phone] [place], [place] [address]03-29-2024 09:07-0400Heart rate65 /minCandie Almaguer MD Work Phone: 1(306)[address] [place], [place] [address]03-29-2024 09:07-0400Systolic blood mm[Hg]Candie Almaguer MD Work Phone: 1(234)[address] [place], [place] 3736703-29-2024 09:06-0400Body ieszuc495.2 cmCandie Almaguer MD Work Phone: 1(646)[address] [place], [place] 3736703-29-2024 09:06-0400Body mass index (BMI) [Ratio]28.9 kg/q0BkqczpCandie Almaguer MD Work Phone: 1(752)[address] [place], [place] 3736703-29-2024 09:06-0400Body vgeavt97.69 kgCandie Almaguer MD Work Phone: 1(293)[address] [place], [place] [address]36703-29-2024 09:06-0400 Respiratory rate20 /minCandie Almaguer MD Work Phone: 1(212)[address] [place], [place] [address]03-29-2024 09:06-1734LyA4% (BldA) [Mass fraction]97 %Candie Almaguer MD Work Phone: 1(567)[address] [place], [place] [address]36702-24-2024 15:04-0500Body qdfztkdvavu96.9 [degF]Reese Sage MD Work Phone: [phone]02-24-2024 15:04-0500 Diastolic blood zxoxnwgm50 mm[Hg]Reese Sage MD Work Phone: 1(647)[facility]24[facility]02-24-2024 15:04-0500Heart rate51 /Carmelita Sage MD Work Phone: 1(329)[address] [place], [place] 9563902-24-2024 15:04-0500 Respiratory rate16 /Carmelita Sage MD Work Phone: 1(107)[address] [place], [place] 9563902-24-2024 15:04-0806EeP2% (BldA) [Mass fraction]94 %Reese Sage MD Work Phone: 1(589)[address] [place], [place] 9563902-24-2024 15:04-0500Systolic blood mm[Hg]Reese Sage MD Work Phone: 1(681)[address] [place], [place] 9563902-24-2024 10:46-0500Body mass index (BMI) [Ratio]30.94 kg/n3FwkwqaataReese Sage MD Work Phone: 1(949)[address] [place], [place] 9563902-24-2024 10:46-0500Body tiskeh16.6 kgReese Sage MD Work Phone: 1(153)[address] [place], [place] 9563902-19-2024 11:21-0500Body nepvsu871.2 John Sage MD Work Phone: 1(580)[address] [place], [place] 9563902-07-2024 09:04-0500Body .2 Suzanne Bruno RX SPECIALIST Work Phone: [facility] HospitalDsdizoswyy40-34-4567 09:04-0500Body mass index (BMI) [Ratio]32.42 kg/m2Zuly Bruno RX SPECIALIST Work Phone: noLee[facility] HospitalCbwyxgkxta50-71-8551 09:04-0500Body temperature 97.81 [degF]Zuly Bruno RX SPECIALIST Work Phone: noLee's Summit HospitalQamrcbqcox13-48-9421 09:04-0500Body ehjjos56.89 kgLisa Aichholz RX SPECIALIST Work Phone: [facility] HospitalNuqmafmxfl41-63-8639 09:04-0500Diastolic blood ovezmmcc46 mm[Hg]Zuly Bruno RX SPECIALIST Work Phone: [facility] HospitalJecqfxdrox76-89-2991 09:04-0500Heart rate95 /min Zuly Torresholz RX SPECIALIST Work Phone: [facility] HospitalVnqzvrthhy55-00-2383 09:04-0500Respiratory rate17 /minLisa Bruno RX SPECIALIST Work Phone: [facility] HospitalDgksbosuwn66-09-9856 09:04-2426GrH1% (BldA) [Mass fraction]99 %Zuly Annz RX SPECIALIST Work Phone: [facility] HospitalVpygbeyaya31-16-9522 09:04-0500Systolic blood clqorvui961 mm[Hg]Zuly Annz RX SPECIALIST Work Phone: 1(690)[facility] [place], [place] [address]Qyaevfhrvy57-83-6397 10:31-0400Body temperature 97.81 [degF]Steve Tammy MBBS Work Phone: 1(002)[address] [place], [place] 9563910-13-2023 10:31-0400 Diastolic blood ltazauuz20 mm[Hg]Steve Tammy MBBS Work Phone: 1(031)[address]10-13-2023 10:31-0400Heart rate70 /minUday Tammy MBBS Work Phone: 1(299)[address]10-13-2023 10:31-0400 Respiratory rate20 /minUday Tammy MBBS Work Phone: 1(858)[address]10-13-2023 10:31-2408FkS2% (BldA) [Mass fraction]91 %Steve Tammy MBBS Work Phone: [phone]43[facility]10-13-2023 10:31-0400Systolic blood krqbtbbo254 mm[Hg]Steve Tammy MBBS Work Phone: 1(614)[address] [place], [place] 9563910-12-2023 15:50-0400Body mass index (BMI) [Ratio]31.99 kg/m2Uday Tammy MBBS Work Phone: 1(740)[address] [place], [place] 9563910-12-2023 15:50-0400Body teuwuz88.67 kgUday Tammy MBBS Work Phone: 1(969)[address] [place], [place] 9563910-04-2023 07:32-0400Body .2 cmUday Tammy MBBS Work Phone: 1(456)[address] [place], [place] 9563909-29-2023 13:33-0400Body efuaxo447.2 cmUday Tammy MBBS Work Phone: 1(855)[address] [place], [place] 9563909-29-2023 13:33-0400Body mass index (BMI) [Ratio]32.12 kg/m2Uday Tammy MBBS Work Phone: 1(145)[address] [place], [place] 9563909-29-2023 13:33-0400Body jjcelqcajxu50.3 [degF]Steve Tammy MBBS Work Phone: 1(755)[address] [place], [place] 9563909-29-2023 13:33-0400Body .03 kgUday Tammy MBBS Work Phone: 1(420)[address] [place], [place] 9563909-29-2023 13:33-0400 Diastolic blood jfqadrzk31 mm[Hg]Steve Tammy MBBS Work Phone: 1(085)[address] [place], [place] 9563909-29-2023 13:33-0400Heart iefn438 /minUday Tammy MBBS Work Phone: 1(943)[address] [place], [place] 9563909-29-2023 13:33-0400Systolic blood acatzixf770 mm[Hg]Steve Tammy MBBS Work Phone: 1(664)[address] [place], [place] [address]563907-14-2023 14:50-0400Body mass index (BMI) [Ratio]33.8 kg/r3Kdfxcqf Gutierrez 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 Work Phone: [facility]07-14-2023 14:50-0400Body gwpprrypdyg64.3 [degF]Rebeca Gutierrez 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 Work Phone: 1(939)[facility]24[facility]07-14-2023 14:50-0400Body zgjaoa42.89 kgRebeca Gutierrez 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 Work Phone: 1(352)[facility]24[facility]07-14-2023 14:50-0400 Diastolic blood cjsmylah68 mm[Hg]Rebeca Gutierrze 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 Work Phone: 1(097)[address] [place], [place] 9563907-14-2023 14:50-0400Heart rate76 /minRebeca Gutierrez 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 Work Phone: 1(859)[facility]24[facility]07-14-2023 14:50-0400Systolic blood elihwjwy000 mm[Hg]Rebeca Gutierrez 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 Work Phone: 1(074)[facility]24[facility]02-17-2023 08:57-0500Body .2 [facility] Work Phone: 1(455)[address] [place], [place] 4995202-17-2023 08:57-0500Body mass index (BMI) [Ratio]33.66 kg/a2Pofcmo [facility] 3 Work Phone: 1(478)[address] [place], [place] 4995202-17-2023 08:57-0500Body bxqfnywrvik29.3 [degF][facility] Work Phone: 1(801)[address] [place], [place] 4995202-17-2023 08:57-0500Body jjokid56.48 kgMar[facility] Work Phone: 1(133)[address] [place], [place] 4995202-17-2023 08:57-0500 Diastolic blood tijmlzev34 mm[Hg][facility] Work Phone: 1(616)[address] [place], [place] 4995202-17-2023 08:57-0500Heart rate76 /minMar[facility] 3 Work Phone: 1(689)[facility]46[facility]02-17-2023 08:57-0500Systolic blood qezsiidk664 mm[Hg][facility] 3 Work Phone: 1(925)[facility]46[facility]10-12-2022 09:38-0400Body .2 Loida Yepez MD Work Phone: 1(958)[address] [place], [place] 7903410-12-2022 09:38-0400Body mass index (BMI) [Ratio]33.67 kg/u5DhgctRyan Yepez MD Work Phone: 1(136)[address] [place], [place] 7903410-12-2022 09:38-0400Body igpxho92.52 kgRyan Yepez MD Work Phone: 1(187)[address] [place], [place] 7903410-12-2022 09:38-0400 Diastolic blood hgriosob91 mm[Hg]Ryan Yepez MD Work Phone: 1(116)[address] [place], [place] 7903410-12-2022 09:38-0400Heart rate64 /Jessi Yepez MD Work Phone: 1(844)[address] [place], [place] 7903410-12-2022 09:38-5901TkL4% (BldA) [Mass fraction]96 %Ryan Yepez MD Work Phone: 1(360)[address] [place], [place] 7903410-12-2022 09:38-0400Systolic blood akumqsbd095 mm[Hg]Ryan Yepez MD Work Phone: 1(248)[address] [place], [place] 7903408-08-2022 13:48-0400 Diastolic blood dmxtpbiv39 mm[Hg]Ryan Yepez MD Work Phone: 1(417)[address] [place], [place] 7903408-08-2022 13:48-0400Heart rate82 /Jessi Yepez MD Work Phone: 1(104)[address] [place], [place] 7903408-08-2022 13:48-6993VzO0% (BldA) [Mass fraction]96 %Ryan Yepez MD Work Phone: 1(075)[address] [place], [place] 7903408-08-2022 13:48-0400Systolic blood pwjvkylp117 mm[Hg]Ryan Yepez MD Work Phone: 1(997)[address] [place], [place] 7903407-29-2022 13:32-0400Body wixipd437.2 Loida Yepez MD Work Phone: 1(677)[address] [place], [place] 7903407-29-2022 13:32-0400Body mass index (BMI) [Ratio]34.24 kg/c8XsptyRyan Yepez MD Work Phone: 1(625)[address] [place], [place] 7903407-29-2022 13:32-0400Body uvycwoaelgl08.6 [degF]Ryan Yepez MD Work Phone: 1(142)[address] [place], [place] 7903407-29-2022 13:32-0400Body .16 kgRyan Yepez MD Work Phone: 1(683)[address] [place], [place] 7903407-29-2022 13:32-0400 Diastolic blood ihfcpmsl91 mm[Hg]Ryan Yepez MD Work Phone: 1(364)[address] [place], [place] 7903407-29-2022 13:32-0400Heart rate77 /minRyan Yepez MD Work Phone: 1(036)[address] [place], [place] 7903407-29-2022 13:32-3989PiC3% (BldA) [Mass fraction]95 %Ryan Yepez MD Work Phone: 1(574)[address] [place], [place] 7903407-29-2022 13:32-0400Systolic blood yvuoajnz047 mm[Hg]Ryan Yepez MD Work Phone: 1(939)[address] [place], [place] 7903407-29-2022 10:52-0400Body omdyfx095.[address] [facility]07-29-2022 10:52-0400 Body mass index (BMI) [Ratio]34.46 kg/o4HagoidphRena Brewster RNOur [facility] of [facility]07-29-2022 10:52-0400Body hxkgiseqtqv31.2 [degF]Rena Brewster RNOur [facility]07-29-2022 10:52-0400Body .79 kgEnriquecarmina Brewster RN [facility]07-29-2022 10:52-0400Diastolic blood qwjocjre02 mm[Hg] Rena Brewster RNOur [facility]07-29-2022 10:52-0400Heart rate78 /minRena Brewster RNOur [facility] of [facility]07-29-2022 10:52-0400Respiratory rate20 /minRena Brewster RNOur [facility] of [facility]07-29-2022 10:52-0400 SaO2% (BldA) [Mass fraction]97 %Rena Brewster [facility] 06-27-2022 10:52-0400Systolic blood unplhvwo389 mm[Hg]Rena Brewster [facility]07-14-2022 14:23-0400Body mass index (BMI) [Ratio]34.59 kg/m2Steve Farrari MBBS Work Phone: 1(995)689[facility]54[facility]07-14-2022 14:23-0400Body leovuxplvho98 [degF]Steve Munoz MBBS Work Phone: 1(398)[address]07-14-2022 14:23-0400Body ctfxoh013.2 kgSteve Farrari MBBS Work Phone: 1(727)[address]07-14-2022 14:23-0400 Diastolic blood nxlismcp51 mm[Hg]Steve Farrari MBBS Work Phone: 1(559)979[facility]57[facility]07-14-2022 14:23-0400Heart rate63 /minSteve Farrari MBBS Work Phone: [facility]07-14-2022 14:23-0400Systolic blood mm[Hg]Steve LEIGH Work Phone: 1(387)[facility]6724[facility]06-21-2022 15:21-0400Body pqoajrvaykv26.9 [degF]Gian Villatoro MD Work Phone: 1(675)[address] [place], [place] 1244206-21-2022 15:21-0400 Diastolic blood ldmxbbbe07 mm[Hg]Gian Villatoro MD Work Phone: 1(912)[address] [place], [place] 1244206-21-2022 15:21-0400Heart rate55 /Amado Villatoro MD Work Phone: 1(442)[address] [place], [place] 1244206-21-2022 15:21-0400 Respiratory rate15 /Amado Villatoro MD Work Phone: 1(068)[address] [place], [place] 1244206-21-2022 15:21-3915ViQ3% (BldA) [Mass fraction]95 %Gian Villatoro MD Work Phone: 1(711)[address] [place], [place] 1244206-21-2022 15:21-0400Systolic blood eaomqles351 mm[Hg]Gian Vlilatoro MD Work Phone: 1(812)[address] [place], [place] 1244206-20-2022 12:15-0400Body mass index (BMI) [Ratio]35.87 kg/r8PvyhxGian Villatoro MD Work Phone: 1(998)[address] [place], [place] 1244206-20-2022 12:15-0400Body egojpr595.92 kgGian Villatoro MD Work Phone: 1(164)[address] [place], [place] [address]Comment on above:standing gduwg05-31-4958 16:19-0400Body yhlego550.2 cmGian Villatoro MD Work Phone: 1(247)[address] [place], [place] 1244211-20-2018 08:44-0500BMI (Body Mass Index)26.58 kg/w3[facility]qSt[facility] Work Phone: 1(174)929-608-895390-81063765-70-3620 08:44-0500BP Mkdaoamvo06 mm[Hg][facility] Work Phone: 1(164)852-537041-70 08:44-0500BP Zacscngp264 mm[Hg][facility] Work Phone: 1(468)678-237-203486-29 08:44-7973Mhnpwb113.7 [facility] Work Phone: 1(538)106-095-149622-76 08:44-0500Pulse (Heart Rate)92 /[facility] Work Phone: 1(309)141-652969-34 08:44-0500Pulse Nemjydot93 %[facility] Work Phone: 1(103)951-539333-20 08:44-0500Respiratory Rate16 /[facility] Work Phone: 1(044)728-037-861141-20 08:44-6020Sscnrj10.29 kgSt[address] [facility] Work Phone: 1(153)361-198-866794-19 09:50-0500BMI (Body Mass Index)27.24 kg/m2 [facility] Work Phone: 1(606)246-336-502880-34 09:50-0500Body Ptavwcibgvh96.6 [degF] [facility] Work Phone: 1(066)424-642422-77 09:50-0500BP Lpkbdnxes00 mm[Hg][facility] Work Phone: 1(517)804-684-853154-70 09:50-0500BP Zimuctft885 mm[Hg][facility] Work Phone: 1(842) 347-715311-13-2018 09:50-6779Mvfpci491.5 cmEchantal [facility] Work Phone: 1(724) 450-600211-13-2018 09:50-0500Pulse (Heart Rate)94 /minEchantal [facility] Work Phone: 1(491) 752-204711-13-2018 09:50-5536Xtsomc68.29 kgEl [facility] Work Phone: Encounters Encounter DateEncounter TypeCare ProviderFacilityStart: 09-27-2025 End: 88-69-3312fstfhtecvdMgbwgd J GaleaFacility: CarolinestoveryStart: 09-27-2025 End: 45-88-3116Lhsbojr encounter procedureAlysjohn paul Montesinos [facility] Start: 09-20-2025 End: 80-24-2530Tagrrw outpatient visit 40 minutesChristiane Parker MD Work Phone: comprehensive [facility] HospitalComment on above:High risk medication use (Primary Dx); Therapeutic drug monitoring; Immunosuppressed status; Liver transplant recipientStart: 42-25-5039wyaqhbsjgvPJSI SELF Facility:[facility] AREAtart: 09-19-2025 End: 21-67-6598Wlcqot flowsJoycelyn Hernandez MD Work Phone: noms [facility] EndocrinologyStart: 09-19-2025 End: 12-02-2770Jzsfxxyessenia Hernandez MD Work Phone: noms [facility]re EndocrinologyStart: 09-19-2025 End: 04-58-8428Lnotex outpatient visit 25 minutesTony Hernandez MD Work Phone: NOPA Alexandre EndocrinologyComment on above: 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); Vitamin D deficiency; Liver transplant status (HCC); Other osteoporosis without current pathological fracture; Organ transplantStart: 09-19-2025 End: 98-44-8051uzspynuryhWUMKJ F SABBAGHNot AvailableStart: 08-11-2025 End: 97-83-9391Seeitx outpatient visit 25 minutesRebeca Gutierrez 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 Work Phone: Comprepam health specialty hospital of stoughtonve [facility] Spine HospitalComment on above:Kidney replaced by transplant (Primary Dx)Start: 99-66-6834dpzixrohetLFEI SELFFacility:[facility] AREAtart: 08-10-2025 End: 16-18-8196odairprqjxYosv J Aichholz RX SPECIALIST-C Work Phone: [facility] Work Phone: Start: 08-10-2025 End: 54-13-3456Rcnnohl encounter procedureLisa Magalie Bruno RX SPECIALIST-C-[facility] [place] Work Phone: Start: 95-46-0908Jgghevf encounter procedureLisa Bruno RX SPECIALIST-C Work Phone: [facility] Dublintart: 07-12-2025 End: 89-62-6584CpvifyPypw Aichholz NP Work Phone: NONJ [facility] FMComment on above:Other polyneuropathyStart: 07-05-2025 End: 77-13-7100Ufwackxqa Result EncounterGeneric External Data ProviderNOMS External Department UnsolicitedStart: 07-05-2025 End: 63-09-3223Rjlxbadpi Result EncounterGeneric External Data ProviderNOMS External Department UnsolicitedStart: 05-29-2025 End: 75-59-1532fmgrhrasdjRgmjm FeteOSU Pharmacy ClinicStart: 05-29-2025 End: 34-67-8451Ywuksfj encounter procedureCorey FeteOSU Pharmacy ClinicStart: 05-11-2025 End: 74-79-8170Pvrbmg flowsZena Annsaeed RX SPECIALIST Work Phone: noms CWM FMStart: 05-11-2025 End: 31-68-1521Pfvckd flowsZena Annsaeed RX SPECIALIST Work Phone: noms CWM FMStart: 05-11-2025 End: 56-35-7861Fbuabvb encounter procedureZuly Bruno RX SPECIALIST Work Phone: noms CW FMComment on above:DARLENE (obstructive sleep apnea) (Primary Dx); Other polyneuropathy; Arteriosclerosis of coronary artery ; Primary hypertension ; Gastroesophageal reflux disease, unspecified whether esophagitis present; Other osteoporosis without current pathological fracture ; Obesity (BMI 30-39.9); Encounter for subsequent annual wellness visit (AWV) in Medicare patientStart: 05-11-2025 End: 02-13-8663wljybkmffnQGPXHugo Yang AvailableStart: 05-02-2025 End: 43-23-2923Tnikdoqwf Result EncounterGeneric External Data ProviderNOMS External Department UnsolicitedStart: 05-02-2025 End: 73-72-9344Ivamekqit Result EncounterGeneric External Data ProviderNOMS External Department UnsolicitedStart: 03-23-2025 End: 66-59-1225fhxbqumiygYvzbbf J GaleaFacility:EU BellevueStart: 03-22-2025 [facility] Hospitaltart: 03-21-2025 End: 66-86-0289Sdoktv Yash Hernandez MD Work Phone: noms ENDOCRINOLOGYStart: 03-21-2025 End: 99-97-6218Ovggyw Yash Hernandez MD Work Phone: noms ENDOCRINOLOGYStart: 03-21-2025 End: 96-71-1348Lpxhdo outpatient visit 40 minutesTony Hernandez MD Work Phone: noms ENDOCRINOLOGYComment on above:Other osteoporosis without current pathological fracture (Primary Dx); Organ transplant; 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); Vitamin D deficiency; Liver transplant statusStart: 03-21-2025 End: 10-54-7616perfjxtnaoKILGK F ALYXNot AvailableStart: 11-36-6211zcvugvexyt Steph X OrzechFacility:EU [place]uskyStart: 03-08-2025 End: 78-34-1802Qildulcyz Result EncounterGeneric External Data ProviderNOMS External Department UnsolicitedStart: 03-08-2025 End: 01-31-4182Ajmhdgdxs Result EncounterGeneric External Data ProviderNOMS External Department UnsolicitedStart: 03-07-2025 End: 72-99-4399Nikiulxlb Result EncounterGeneric External Data ProviderNOMS External Department UnsolicitedStart: 03-07-2025 End: 07-17-6857Uhrvmxbcv Result EncounterGeneric External Data ProviderNOMS External Department UnsolicitedStart: 02-28-2025 End: 04-45-3140Itrxxh Yash Hernandez MD Work Phone: NOMS ENDOCRINOLOGYStart: 02-28-2025 End: 41-94-5598Sfgqqw Yash Hernandez MD Work Phone: NOMS ENDOCRINOLOGYStart: 02-28-2025 End: 29-67-0944Xagcgj outpatient new 45 minutesTony Hernandez MD Work Phone: noMS ENDOCRINOLOGYComment on above:Other osteoporosis without current pathological fracture; Liver transplant status; Organ transplantStart: 02-28-2025 End: 96-30-7474jdlwlcnftgUITPG F Melyssa AvailableStart: 02-24-2025 End: 70-04-5161XjltraVwqe Aichholz NP Work Phone: NOMS CWM FMComment on above:Elevated blood uric acid level (Primary Dx)Start: 02-20-2025 End: 46-07-7360Ztyrjzgyu encounterMomo Verdugo MD Work Phone: NOMS CWM FMComment on above:Med RefillStart: 02-08-2025 End: 05-10-0020pqeddyzheySIGN AICHHOLZNot AvailableStart: 02-01-2025 End: 67-06-4978XgmwskWqfe Aichholz RX SPECIALIST Work Phone: noms CWM FMComment on above:Primary hypertension (CMS/HCC)Start: 01-31-2025 End: 91-62-0710Dkpsdxsrv Result EncounterGeneric External Data ProviderNOMS External Department UnsolicitedStart: 01-31-2025 End: 11-90-3292Zojemztcv Result EncounterGeneric External Data ProviderNOMS External Department UnsolicitedStart: 63-97-0700eysfybobvzJvzkuy Galea Facility: BellevueStart: 01-13-2025 End: 80-15-9982Xbxppa OnlyLisa Kristopherhholz RX SPECIALIST Work Phone: noms CWM FMComment on above:Other osteoporosis without current pathological fracture (CMS/HCC) (Primary Dx); Liver transplant status (CMS/HCC); Organ transplantStart: 01-05-2025 End: 59-74-2983NvaysfZvsh Aichholz RX SPECIALIST Work Phone: noms CWM FMComment on above:Other polyneuropathyStart: 01-03-2025 End: 03-97-3139tmgdkfrwroTrkyxa X OrzechFacility:EU [place]kyStart: 01-03-2025 End: 25-40-9481Rgfkcmz encounter procedureAurora X Orzech [facility] Start: 12-28-2024 End: 28-66-4002Gcnrnqago Result EncounterGeneric External Data ProviderNOMS External Department UnsolicitedStart: 12-28-2024 End: 03-76-1571Lwtvsslrl Result EncounterGeneric External Data ProviderNOMS External Department UnsolicitedStart: 68-37-9605Vjo-patient / Non-visitLisa Aichholz Work Phone: [facility] Physician [facility] Work Phone: Start: 12-26-2024 End: 46-35-6520Vxszorrsj to same day surgery Benita Kiana Work Phone: [facility] Work Phone: Start: 12-26-2024 End: 11-09-9290rzdjwtrrjyWmpi Magalie Bruno Work Phone: [facility] Work Phone: Start: 12-23-2024 End: 73-23-5926UjkvrrDocu Aichholz RX SPECIALIST Work Phone: noms CWM FMStart: 12-15-2024 End: 84-99-2180wnomjvkvvoEyywlqvxsSelect [facility] Work Phone: Start: 12-15-2024 End: 97-21-7508Ctxsgxx encounter procedureUn[facility] Work Phone: Start: 11-22-2024 End: 31-96-6882bfeyjgkrixZbsxuv X OrzechFacility:EU BellevueStart: 11-22-2024 End: 85-16-6335Ejmgcoc encounter procedureAurora X Orzech [facility] start: 11-21-2024 End: 60-56-1434Vrhygdcwd Result EncounterGeneric External Data ProviderNOMS External Department UnsolicitedStart: 11-21-2024 End: 70-72-4358Hhknaoiqm Result EncounterGeneric External Data ProviderNOMS External Department UnsolicitedStart: 11-07-2024 End: 08-71-7716Qwlays outpatient visit 25 minutesLisa Bruno RX SPECIALIST Work Phone: noms CWM FMComment on above:Primary hypertension (CMS/HCC) (Primary Dx); Immunodeficiency, unspecified (CMS/HCC); Liver transplant status (CMS/HCC); Portal hypertension (CMS/HCC); Obesity (BMI 30-39.9); Other osteoporosis without current pathological fracture ([facility]/HCC); Kidney stonesStart: 11-07-2024 End: 94-80-2461osfoxawcqdLHQE FLORESHOLZNot AvailableStart: 11-07-2024 End: 55-69-1496Ygyugzgfr Result EncounterGeneric External Data ProviderNOMS External Department UnsolicitedStart: 11-07-2024 End: 86-68-7698Gxvitzseu Result EncounterGeneric External Data ProviderNOMS External Department UnsolicitedStart: 10-31-2024 End: 78-83-9863qapgkgtrfzZyrqhsik Colla RPh,PharmDPharmacy Outpatient RX AckermanStart: 10-31-2024 End: 13-55-3579Vshzqgn encounter procedureNicholas Colla RPh,PharmDPharmacy Outpatient RX AckermanStart: 10-29-2024 End: 37-12-0245GzndsyYfut Aicjose e COSME Work Phone: noms CWM FMComment on above:Decreased urine stream Start: 10-24-2024 End: 58-77-7203Durhfcjzv Result EncounterGeneric External Data ProviderNOMS External Department UnsolicitedStart: 10-24-2024 End: 27-10-1332Lplltphil Result EncounterGeneric External Data ProviderNOMS External Department UnsolicitedStart: 10-10-2024 End: 96-11-3904Mhmjqndxy Result EncounterGeneric External Data ProviderNOMS External Department UnsolicitedStart: 10-10-2024 End: 92-58-6742Xxmpbxxyz Result EncounterGeneric External Data ProviderNOMS External Department UnsolicitedStart: 10-01-2024 End: 26-94-4027QxkhzuXxnv Naderer MD Work Phone: noms CWM FMComment on above:Decreased urine stream (Primary Dx)Start: 09-27-2024 End: 11-47-9168Gtyhnvtyo Result EncounterGeneric External Data ProviderNOMS External Department UnsolicitedStart: 09-27-2024 End: 32-44-9036Efhmidisx Result EncounterGeneric External Data ProviderNOMS External Department UnsolicitedStart: 09-13-2024 End: 74-67-3554Pwpgzoejx Result EncounterGeneric External Data ProviderNOMS External Department UnsolicitedStart: 09-13-2024 End: 58-08-0650Ppfgjmmpp Result EncounterGeneric External Data ProviderNOMS External Department UnsolicitedStart: 09-08-2024 End: 17-71-3923Agkmpeo encounter procedureAlysha Magalie Leifea [facility] start: 09-05-2024 End: 08-44-3879hycjvunfcuSjqhb Fete RPh,PharmDPharmacy Outpatient RX [place] Start: 09-05-2024 End: 65-61-0505Uccwytrrt Result EncounterLisa Aichholz RX SPECIALIST Work Phone: noms External Department UnsolicitedStart: 09-05-2024 End: 18-82-2207Kzorbjcjl Result EncounterLisa Aichholz RX SPECIALIST Work Phone: [facility] External Department UnsolicitedStart: 09-05-2024 End: 42-52-3609Xqheazj encounter procedureCorey Fete RPh,PharmDPharmacy Outpatient RX [place]Start: 08-29-2024 End: 00-43-7095Zsaddxfxb Result EncounterGeneric External Data ProviderNOMS External Department UnsolicitedStart: 08-29-2024 End: 16-56-7440Rivigusco Result EncounterGeneric External Data ProviderNOMS External Department UnsolicitedStart: 08-23-2024 End: 02-90-9594Rlytev flowsheetLisa Aichholz RX SPECIALIST Work Phone: [facility] C[facility] FMStart: 08-23-2024 End: 47-01-3517Ihvuzy flowsheetLisa Aichholz RX SPECIALIST Work Phone: [facility] C[facility] FMStart: 08-23-2024 End: 62-40-7131Kgtxkv outpatient visit 25 minutesLisa Aichjose e RX SPECIALIST Work Phone: noPA CW FMComment on above:Primary hypertension (CMS/HCC) (Primary Dx); Portal hypertension (CMS/HCC); Alcoholic cirrhosis of liver without ascites (CMS/HCC); Obesity (BMI 30-39.9); Gastroesophageal reflux disease, unspecified whether esophagitis present; Immunocompromised (CMS/HCC); Organ transplant; Tremor; S/P liver transplant (CMS/HCC); Blood glucose elevated; Left carotid bruit; Mixed hyperlipidemia (CMS/HCC); Prostate cancer screening; Dysuria; Abdominal pain, generalized; DARLENE (obstructive sleep apnea); Bilateral lower extremity edema; Other constipation; Decreased urine streamStart: 08-15-2024 End: 29-48-9776Zkrbznjcn Result EncounterGeneric External Data ProviderNOMS External Department UnsolicitedStart: 08-15-2024 End: 81-86-7083Mqpxskszt Result EncounterGeneric External Data ProviderNOMS External Department UnsolicitedStart: 08-11-2024 End: 74-28-3995KrqoznHkbp Aicjose e RX SPECIALIST Work Phone: noms [facility] FMComment on above:Primary hypertension (CMS/HCC)Start: 08-02-2024 End: 95-98-6248Rntoscicv Result EncounterGeneric External Data ProviderNOMS External Department UnsolicitedStart: 08-02-2024 End: 24-31-7372Pseodrwvg Result EncounterGeneric External Data ProviderNOMS External Department UnsolicitedStart: 07-26-2024 End: 79-08-3387Qrjauhmht Result EncounterGeneric External Data ProviderNOMS External Department UnsolicitedStart: 07-26-2024 End: 36-69-1095Hmaxjtybd Result EncounterGeneric External Data ProviderNOMS External Department UnsolicitedStart: 06-23-2024 End: 11-05-9874ksmlqjiwbrLszge Davis-Rowley RPHPharmacy Outpatient RX [place] Start: 06-23-2024 End: 44-41-3377Qaocmhu encounter procedureMeka Munoz RPHPharmacy Outpatient RX AckermanStart: 06-17-2024 End: 67-04-3383Pctzrg outpatient visit 25 minutesLinsanjana Tray Winter DO Work Phone: [facility] Spine HospitalComment on above:Liver lesion (Primary Dx); Liver transplant recipient; High risk medication use; Therapeutic drug monitoring; ImmunocompromisedKidney replaced by transplant (Primary Dx)Start: 05-26-2024 End: 78-84-2145shkzjmxgbbQifaooju Colla RPh,PharmDPharmacy Outpatient RX AckermanStart: 05-26-2024 End: 88-92-8935Olcecfx encounter procedureNicholas Colla RPh,PharmDPharmacy Outpatient RX AckermanStart: 05-20-2024 End: 78-27-5108Libxrcxrm Result EncounterGeneric External Data ProviderNOMS External Department UnsolicitedStart: 05-20-2024 End: 74-82-2241Unwyiiing Result EncounterGeneric External Data ProviderNOMS External Department UnsolicitedStart: 05-13-2024 End: 49-42-0574gjqcsabrddOKDWCI [facility] Start: 03-24-2024 End: 23-63-9396exjwrdfxnoFcyfr Fete RPh,PharmDPharmacy Outpatient RX [place] Start: 03-24-2024 End: 81-65-5009Tlnlfqy encounter procedureCorey Fete RPh,PharmDPharmacy Outpatient RX AckermanStart: 03-02-2024 End: 39-70-3267htixoyvejtRcqwh Perfecto-Yannick RPHPharmacy Outpatient RX [place] Start: 03-02-2024 End: 44-85-4160Yrbxrfa encounter procedureLaura Perfecto-Yannick RPHPharmacy Outpatient RX AckermanStart: 02-26-2024 End: 85-64-1190Ynhcvg outpatient new 30 minutesaCndie Almaguer MD Work Phone: [facility] Comment on above:Heart failure, diastolic, acute (Primary Dx)Start: 02-11-2024 Patient encounter procedureGeneric ProviderNOMS HealthcareStart: 01-16-2024 End: 40-39-0093Xdkvgzdvbo and management of inpatientReese Sage MD Work Phone: [phone] on above:Pleural effusion on rightStart: 01-16-2024 End: 48-69-6667Vnkpygp encounter statusReese Sage MD Work Phone: [facility] Work Phone: Start: 01-12-2024 End: 53-91-5001daczpoxhynQraap Fete RPh,PharmDPharmacy Outpatient RX [place] Start: 01-12-2024 End: 78-96-7732Vnlwcnz encounter procedureCorey Fete RPh,PharmDPharmacy Outpatient RX AckermanStart: 29-28-0786Dounlrmmz Result EncounterGeneric External Data ProviderNOMS External Department UnsolicitedStart: 01-08-2024 Clinisync Result EncounterGeneric External Data ProviderNOMS External Department UnsolicitedStart: 01-06-2024 End: 16-06-1236Uhzbif outpatient visit 25 minutesZuly Bruno NP Work Phone: noms CW FMComment on above:Bilateral lower extremity edema (Primary Dx); 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); Atherosclerosis 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); Obesity (BMI 30-39.9); DARLENE (obstructive sleep apnea); Tremor; Immunocompromised (CMS/HCC); Primary hypertension ([facility]); Shortness of breathStart: 22-78-8148Dqaibtsgy Result EncounterGeneric External Data ProviderNOMS External Department UnsolicitedStart: 56-20-6839Ljifhjyah Result EncounterGeneric External Data ProviderNOMS External Department UnsolicitedStart: 11-10-2023 End: 08-55-0457Akgstlbxr Result EncounterGeneric External Data ProviderNOMS External Department UnsolicitedStart: 11-10-2023 End: 51-83-7683Eibemkdsd Result EncounterGeneric External Data ProviderNOMS External Department UnsolicitedStart: 52-20-3203hvqbezytcsGvhnc Fete RPh,PharmD Pharmacy Outpatient RX AckermanStart: 97-90-7349Crljqsk encounter procedureCorey Fete RPh,PharmDPharmacy Outpatient RX AckermanStart: 08-28-2023 End: 87-27-4955Wdtsnecgiv and management of Memo Munoz [facility] Work Phone: R10WStart: 08-28-2023 End: 98-75-6657Cqxnzi outpatient visit [address] [facility] Work Phone: [facility] HospitalComment on above:Immunosuppressed status (Primary Dx); Kidney replaced by transplant; Aftercare following organ transplant; High risk medication use; Other general symptoms and signs; Abnormal blood chemistry; Hypertension secondary to other renal disordersStart: 50-09-4702opcylvgtmdUrtrd Alexander RPHPharmacy Outpatient RX AckermanStart: 16-78-6673Xafusuq encounter procedureLaura Alexander RPHPharmacy Outpatient RX AckermanStart: 06-12-2023 End: 87-79-8224Hnajww outpatient visit [address] [facility] Work Phone: [facility] HospitalComment on above:Kidney replaced by transplant (Primary Dx)Start: 22-43-9047mcplebtorfRkrfu Bar RPh,PharmDPharmacy Outpatient RX [place] Start: 83-69-3180Kosdqdj encounter procedureMissy Bar RPh,PharmDPharmacy Outpatient RX AckermanStart: 04-28-2023 End: 04-77-3351bfucqajdyxCM DOCTOR MISCFacility:Q1Hvxpv: 56-54-0288dntilxmsmk Angel Fete RPh,PharmDPharmacy Outpatient RX AckermanStart: 70-24-0952Jjkmndr encounter procedureCorey Fete RPh,PharmDPharmacy Outpatient RX AckermanStart: 98-82-4988iydsijcrxiJpmiy Fete RPh,PharmDPharmacy Outpatient RX AckermanStart: 67-03-1007Osrtkec encounter procedureCorey Fete RPh,PharmDPharmacy Outpatient RX AckermanStart: 03-02-2023 End: 14-83-4465aantzhtvllXP DOCTOR MISCFacility:T4Cpxss: 01-16-2023 End: 02-87-9675Iaakia outpatient visit 25 minutesDaisha Tray Winter DO Work Phone: [facility] Spine HospitalComment on above:Abnormal blood chemistry (Primary Dx); Liver transplant recipient; Kidney replaced by transplant; Immunosuppressed status; Aftercare following organ transplantStart: 12-29-2022 End: 72-77-0354pnywjstcgmHM DOCTOR MISCFacility:F8Gsnif: 11-04-2022 End: 42-24-2258hhcoomrjnjIN DOCTOR MISCFacility:U1Pmljp: 09-15-2022 End: 04-74-0175leybjxtacnCT DOCTOR MISCFacility:G8Vpuqx: 09-10-2022 End: 50-84-6111Jezgtc outpatient visit 25 minutesRyan Yepez MD Work Phone: [facility] InstituteComment on above:BPH with obstruction/lower urinary tract symptoms (Primary Dx); Encounter for screening for malignant neoplasm of prostateStart: 08-28-2022 End: 00-76-8187llzalrpkjwXAG LISA AICHHOLZFacility:M8Unpmu: 08-14-2022 End: 68-18-8602azwlbdgngtVF DOCTOR MISCFacility:Q1Gsotu: 07-07-2022 End: 43-56-3578Aastour encounter procedureRyan Yepez MD Work Phone: [facility] InstituteComment on above:Other hydronephrosis (Primary Dx); -donor kidney transplant recipientStart: 07-07-2022 End: 09-41-0481Fxqcbkmgks hospital visit by Calvin Yepez MD Work Phone: Department of RadiologyComment on above:ArrivedStart: 07-03-2022 End: 01-15-6072owgrpyzwfaOB DOCTOR MISCFacility:L5Thmrw: 07-03-2022 End: 68-70-1009fzemzzygobFA DOCTOR MISCFacility:G6Kfplj: 06-27-2022 End: 35-35-1687Ripuvt outpatient visit 25 minutesRyan Yepez MD Work Phone: [facility] InstituteComment on above:Other hydronephrosis (Primary Dx)Start: 06-27-2022 End: 25-32-2799Vykowtldyt hospital visit by physicianRyan Yepez MD Work Phone: Department of RadiologyComment on above:ArrivedStart: 06-27-2022 End: 75-77-0991Pnxglqe encounter procedureEnzo Heart DO Work Phone: Interventional Radiology ClinicComment on above: Attention to nephrostomy (Primary Dx)Start: 06-18-2022 End: 28-35-8839hzortrsnlcYHTRLQ RODRIGUEZ .Facility:Z1Jjung: 06-12-2022 End: 37-69-8893Wzknhi outpatient visit 25 minutesSteve LEIGH Work Phone: [facility] HospitalComment on above:Immunosuppressed status (Primary Dx); Kidney replaced by transplant; Liver replaced by transplant; Abnormal blood chemistry; High risk medication use; Aftercare following organ transplant; Liver transplant recipientStart: 06-06-2022 End: 58-04-5684wptkmqtqfvTN DOCTOR MISCFacility:V6Punwx: 06-04-2022 End: 00-37-8105Ksmsxh-up encounterEric Jenna Heart DO Work Phone: Interventional Radiology ClinicComment on above: Follow-up exam (Primary Dx)Start: 05-15-2022 End: 95-70-6330Iljmbqplzb and management of inpatientDalucian Villatoro MD Work Phone: [phone] on above:FAYE (acute kidney injury)Start: 05-15-2022 End: 41-66-4458txplmjvtjsSL MARK R SMITHFacility:V6Wtqnc: 05-11-2022 End: 03-79-6820xihegnkbbeTR MARK R SMITHFacility:V2Qqkew: 78-78-9460hqdjdqxntctaiwo Rivera [facility] Work Phone: pharmacy Outpatient RX AckermanStart: 03-14-2022 Patient encounter procedureComfort Rivera [facility] Work Phone: pharmacy Outpatient RX AckermanStart: 06-14-2021 End: 14-52-7395pizbltzlzcZzahq C George [facility] Work Phone: [facility] Outpatient PharmacyStart: 31-56-4694Iivooti encounter procedureComfort Rivera [facility] Work Phone: [facility] Outpatient PharmacyStart: 01-20-2020 End: 92-25-4411Zxlxgfr encounter procedurePEPE Perezcility:UTMCStart: 01-06-2020 End: 32-78-2459Avxgfuw encounter procedureUniversity [facility] Start: 01-06-2020 End: 52-68-5545Ywalomjgsa hospital visit by [facility] LaboratoryStart: 10-24-2019 End: 53-27-6235Kdvlctd [facility] Start: 10-24-2019 End: 11-57-4182Nluoxcnrcv hospital visit by [facility] LaboratoryStart: 08-27-2019 End: 19-97-6010Fdehque encounter procedureUniversity [facility]als [facility] Start: 08-27-2019 End: 94-61-7145Kestlqauwo hospital visit by [facility] LaboratoryStart: 08-08-2019 End: 56-74-4233Nffpfng encounter procedurePro[facility] Start: 08-08-2019 End: 80-64-4926Ngvplwwqru hospital visit by [facility] LaboratoryStart: 08-03-2019 End: 34-83-9738Ncvhqud encounter procedureProMedica [facility] Start: 08-03-2019 End: 32-92-1862Bkwdcvdrxi hospital visit by [facility] LaboratoryStart: 08-01-2019 End: 85-81-8387Ystwufg encounter procedureProMedica [facility] Start: 08-01-2019 End: 52-14-0992Tqhstihuds hospital visit by [facility] LaboratoryStart: 06-10-2019 End: 64-10-8993Uxyhrim encounter [facility] Start: 06-01-2019 End: 36-32-9871Kslvehu encounter [facility] Start: 01-14-2019 End: 98-10-4114Jusskbi encounter [facility] Start: 11-17-2018 End: 00-48-3277Ulbqmdl encounter procedureBurke Rehabilitation Hospitalcrow PiersonChristus St[facility] Pre Transplant OfficeComment on above:Social Work Follow-up Start: 10-19-2018 End: 51-84-8198Anbyenh encounterWinston Medical Center Pre Transplant OfficeComment on above:Cirrhosis of liver without ascites, unspecified hepatic cirrhosis type (Primary Dx)Start: 10-19-2018 End: 45-43-4934Bcawbv outpatient visit 25 minutesChristin Elizabeth Work Phone: Division of Gastroenterology and Hepatology Gavin Comment on above:Alcoholic cirrhosis of liver without ascites (Primary Dx); Pre- transplant evaluation for liver transplant; Hepatic encephalopathyStart: 10-13-2018 End: 58-17-5446Vjysfst encounter procedureWinston Medical Center Pre Transplant OfficeComment on above:RescheduleOutside Medical Records RequestStart: 10-12-2018 End: 17-63-0504Rftlrai encounter procedureReaida CaryChristus St. [facility] Pre Transplant OfficeComment on above:Alcoholic cirrhosis, unspecified whether ascites present (Primary Dx); Pre-transplant evaluation for liver transplantStart: 10-12-2018 End: 94-95-3500Lkswcz outpatient new 60 minutesDaxmahdi Feliz Kiarapuja Work Phone: [facility] Pre Transplant Office Comment on above:Alcoholic cirrhosis, unspecified whether ascites present; ESRD (end stage renal disease) on dialysis; Pre-transplant evaluation for liver transplantStart: 10-06-2018 End: 22-34-2399Idnxrcp encounter procedureYovani Orr Work Phone: Department of RadiologyComment on above:Canceled (Insurance Company Redirected Pt)Start: 01-42-8448Jvmuqpa encounter Cynthia Rivera [facility] Work Phone: [facility] Procedures DateProcedureProcedure DetailPerforming ClinicianStart: 40-46-2027ADG CBC WITH AUTO DIFFGeneric External Data ProviderStart: 17-18-5792MSB CBC WITH AUTO DIFF Generic External Data ProviderStart: 41-79-9173OZKMZXU 24 HOUR URINEGeneric External Data ProviderStart: 68-17-7219IURHJLBPWY 24 HOUR URINEGeneric External Data ProviderStart: 45-58-9564EYAZWH 24 HOUR URINEGeneric External Data Provider Start: 27-76-2488EUY CBC WITH AUTO DIFFGeneric External Data ProviderStart: 02-08-2025 End: 02-08-2025H/O: liver recipientHistory of liver transplantLisa [facility] RX SPECIALIST Work Phone: Start: 59-03-9415Gksyfhp of renal transplantHistory of kidney transplantLisa [facility] RX SPECIALIST Work Phone: Start: 84-02-8773QCU CBC WITH AUTO DIFFGeneric External Data ProviderStart: 27-89-8717Mevveer of renal transplantAurora X Orzech Start: 97-36-5052YRH CBC WITH AUTO DIFFGeneric External Data ProviderStart: 12-26-2024 End: 62-17-2593YkemgbxwmjrsppydifavrfgabiFahc Aichholz Work Phone: Start: 49-91-9418ZniycjdmkeqFhopmkv ProviderStart: 62-73-9024YdmggcqgbczBzzxly Orzech Start: 11-51-8257Wlpfabu of renal transplantAurora X Orzech Start: 25-72-5044XPS CBC WITH AUTO DIFFGeneric External Data ProviderStart: 28-37-3339XLD CBC WITH AUTO DIFFGeneric External Data ProviderStart: 56-16-7906CAE CBC WITH AUTO DIFFGeneric External Data Provider Start: 41-50-5744SFQ CBC WITH AUTO DIFFGeneric External Data ProviderStart: 21-64-3927JZW CBC WITH AUTO DIFFGeneric External Data ProviderStart: 09-13-2024 ALL CBC WITH AUTO DIFFGeneric External Data ProviderStart: 49-81-0005Pcxbakj of renal transplantClementina Montesinos Start: 66-23-3203KG DEXA AXIAL SKELETONLisa Bruno RX SPECIALIST Work Phone: Start: 32-55-6307Jdwoar scan extracranial art compl bi studyLisa Kristopherlehigh valley hospital - hazeltonsaeed RX SPECIALIST Work Phone: Start: 60-66-8964IEK CBC WITH AUTO DIFFGeneric External Data ProviderStart: 77-58-7380FNU CBC WITH AUTO DIFFGeneric External Data ProviderStart: 61-85-3379NGC URINE T PROTEIN CREAT RATIOGeneric External Data ProviderStart: 76-98-1746JSD CBC WITH AUTO DIFFGeneric External Data ProviderStart: 10-71-9484WKY URINE T PROTEIN CREAT RATIOGeneric External Data ProviderStart: 52-20-8178Olm abdomen w/o & w/contrast materialGeneric External Data ProviderStart: 48-03-1423JK ECHO DOPPLER COMPLETEGeneric External Data ProviderStart: 26-81-8768Eqvwtuf measurement, Elba Smith MD, LU Work Phone: Start: 00-18-0460Soilnoc measurement, Elba Smith MD, LU Work Phone: Start: 33-99-2600Xxuwe of magnesiumTimothy Joseph MD Work Phone: Start: 76-98-4680Devebuj function panelArelis Mera MD Work Phone: Start: 65-55-9368Aagunhcfawr positive expiratory pressure (flutter) physiotherapyArelis Mera MD Work Phone: Start: 18-89-5287EIELSUD RHYTHMOther OtherStart: 78-12-2778UI Unspecified body regionMini Khan MD Work Phone: Start: 78-99-7555Vkdgasuv screenAlejandro Alona MD Work Phone: Start: 63-90-9417Sxkde of Edilma Joseph MD Work Phone: Start: 68-28-4475Avut screen quantitative tacrolimus Arelis Mera MD Work Phone: Start: 60-81-6963Ifror of magnesiumTimothy Joseph MD Work Phone: Start: 48-42-7301Hwjg screen quantitative tacrolimus Arelis Mera MD Work Phone: Start: 66-13-4788Dzjmj heart cath o2 saturation & cardiac outputLU Jain MD Work Phone: Start: 01-20-2024 End: 09-29-0463Npgmc count hemoglobinALU Oleary MD Work Phone: Start: 53-78-8831Qdlxmtu catheterizationLU Jain MD Work Phone: Start: 21-62-8383Khrrs of Edilma Joseph MD Work Phone: Start: 30-70-9144Lygnowy function panelArelis Mera MD Work Phone: Start: 79-50-5364WIQRIGGMPKDT LEVELCorrectionville Angel Alarcon [facility] Work Phone: Start: 45-60-0932Wcccjmckldp positive expiratory pressure (flutter) Pratik Mera MD Work Phone: Start: 64-25-6704Omvvyj scan hemodialysis accessArelis Mera MD Work Phone: Start: 78-98-0369Nuvdijuhfpw positive expiratory pressure (flutter) Pratik Mera MD Work Phone: Start: 69-63-3429Ybftd of Edilma Joseph MD Work Phone: Start: 99-64-6363Haeb screen quantitative tacrolimus Aerlis Mera MD Work Phone: Start: 79-85-2098Dwycy nos quantification each organismMelania Alarcon [facility] Work Phone: Start: 56-69-3941Qihj tthrc r-t 2d w/wom-mode compl spec&colr Tripp Mera MD Work Phone: Start: 61-22-2753Nucfr of magnesiumTimothy Joseph MD Work Phone: Start: 91-99-3977Akvdmxh function panelArelis Mera MD Work Phone: Start: 98-01-0228Df abdomen & pelvis w/o contrast materialArelis Mera MD Work Phone: Start: 04-38-3774Oiwue of Edilma Joseph MD Work Phone: Start: 15-95-8037Rkipwtq function panelArelis Mera MD Work Phone: Start: 22-99-1240Hpcb ia mult step method nos each organismArelis Mera MD Work Phone: Start: 98-66-0423Rzuvkxaenl exam chest 2 viewsArelis Mera MD Work Phone: Start: 80-39-4767Akz-scan artl angela abdl/pel/scrot&/rpr orgn comTimothy Joseph MD Work Phone: Start: 59-58-3701Vzqj screen quantitative tacrolimus Timothy Joseph MD Work Phone: Start: 31-55-1578Wrkuuzgwp directTimothy Joseph MD Work Phone: Start: 75-01-2955WOB AND ELECTRONIC DIFFTimothy Joseph MD Work Phone: Start: 94-10-7546Linubuqm blood count with white cell differential, automatedTimothy Joseph MD Work Phone: Start: 46-39-8252MROUTXW AURIS SCREEN BY Renée Capps 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 Work Phone: Start: 56-12-2092YXZ CBC WITH AUTO DIFFGeneric External Data ProviderStart: 19-35-3753VCT CBC WITH AUTO DIFFGeneric External Data ProviderStart: 54-25-7149VV HEAD/BRAIN WO CONGeneric External Data Provider Start: 55-52-0725Pcawzgc measurement, bloodReese Sage MD Work Phone: Start: 82-60-5512Vjdyw of Ashley Kelly MD Work Phone: Start: 53-34-9315Qati screen quantitative tacrolimus Evan Kelly MD Work Phone: Start: 18-59-6618Yhpyi of Ashley Kelly MD Work Phone: Start: 11-06-2042Dqdlqhc function Kaylen Serrano MD, PhD Work Phone: Start: 23-78-9427Jgrhf of Ashley Kelly MD Work Phone: Start: 42-31-8785Cqan screen quantitative tacrolimus Evan Kelly MD Work Phone: Start: 57-22-5053Nayjb of Ashley Kelly MD Work Phone: Start: 23-72-3483Ncmedkx function panelEvan Kelly MD Work Phone: Start: 63-80-6217Lgipu of Ashley Kelly MD Work Phone: Start: 22-89-3590Mmcduwp function Leanne Kelly MD Work Phone: Start: 35-08-3524Yudnn of Ashley Kelly MD Work Phone: Start: 48-26-4975Tqzzusp function Leanne Kelly MD Work Phone: Start: 27-73-5490Fboltruhjun positive expiratory pressure (flutter) Elver Serrano MD, PhD Work Phone: Start: 11-44-2157Iyegn of Ashley Kelly MD Work Phone: Start: 33-97-5355Mdhwvtp function Leanne Kelly MD Work Phone: Start: 30-27-4706UHIDPYUFCD CARDIAC MONITORING STRIP Other OtherStart: 60-52-7217Vmbsrbd Keeley Sage MD Work Phone: Start: 56-96-3155Nfintoromz exam chest single view Crow Diaz MD Work Phone: Start: 67-66-7218Valrvyuyqjk positive expiratory pressure (flutter) Elver Serrano MD, PhD Work Phone: Start: 18-70-6876Xjlmd of Ashley Kelly MD Work Phone: Start: 14-00-9281Vnkqoky function Leanne Kelly MD Work Phone: Start: 93-57-9388Quix cytometry cell surf marker techl only Ijeoma Loera MD Work Phone: Start: 98-36-9149Yxmeumtqot exam chest single view Izzy Loera MD Work Phone: Start: 46-76-8995Tvapk of Ashley Kelly MD Work Phone: Start: 81-87-7495Eurfmlv function Leanne Kelly MD Work Phone: Start: 01-96-1711Mrinoeq incl fluor gdnce dx w/cell washg spxAlexce Loera MD Work Phone: Start: 09-02-2023 End: 85-29-2227Iqprjxc fngi mold/yeast prsmptv oth xcpt bloodArindam Emily LUZ Work Phone: Start: 09-02-2023 End: 95-67-7106Hlth slctv cell enhancement interpj xcpt c/vArindpiper Diaz MD Work Phone: Start: 63-52-4629Lzfvx of Ashley Kelly MD Work Phone: Start: 83-91-1187Praskzl function panelEvan Kelly MD Work Phone: Start: 32-77-1572Thbx ia hiv-1 ag w/hiv-1 & hiv-2 antbdy singleEvan Kelly MD Work Phone: Start: 57-04-3444Uccc ia cryptococcus neoformans Evan Kelly MD Work Phone: Start: 70-25-4707Cvznb of Ashley Kelly MD Work Phone: Start: 47-15-9432Yryidqq function panelEvan Kelly MD Work Phone: Start: 84-89-3721Zrdjy nos amplified probe tq each organismNicholas A Cindy DO Work Phone: Start: 08-31-2023 End: 93-61-7604Eqey ia mult step method nos each organismLaurel Serrano MD, PhD Work Phone: Start: 44-23-2302Mf abdomen & pelvis w/o contrast Eugenio Serrano MD, PhD Work Phone: Start: 32-42-0462Yp thorax w/o contrast Eugenio Serrano MD, PhD Work Phone: Start: 29-54-3568Elyfh of ferritinLaurel Serrano MD, PhD Work Phone: Start: 70-63-2517Qrmijhd function Leanne Kelly MD Work Phone: Start: 35-11-9073Obvtz of Ashley Kelly MD Work Phone: Start: 68-08-9814Lpjqzei function panelEvan Kelly MD Work Phone: Start: 77-53-5098Yzlwbsroelm Chelsea Serrano MD, PhD Work Phone: Start: 17-76-1958Bi trnsplnt kidney real time w/image docmtLivier Turner MD Work Phone: Start: 83-94-6601Ykog screen quantitative tacrolimus Aric Turner MD Work Phone: Start: 23-74-4468Sjlpm of Ashley Kelly MD Work Phone: Start: 70-41-3623Wrysupw function panelEvan Kelly MD Work Phone: Start: 34-78-3560Uvep ia mult step method nos each organismAric Turner MD Work Phone: Start: 77-19-9285Hkgpykg bct isol&prsmptv id isolate ea urineLaurel Serrano MD, PhD Work Phone: Start: 70-45-5862OPPIV MICROAric Turner MD Work Phone: Start: 32-99-9943XBMUHPINFQ REFLEX TO CULTUREAric Turner MD Work Phone: Start: 51-16-4545Hkqasxzrlx exam chest single view Aric Turner MD Work Phone: Start: 56-24-6391STILHBC AURIS SCREEN BY Renée Capps 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 Work Phone: Start: 07-09-0334FME AND ELECTRONIC DIFFGi Aranda MD Work Phone: Start: 67-98-8777Plhxxdrl blood count with white cell differential, automatedGi Aranda MD Work Phone: Start: 08-28-2023 End: 34-55-1558Uhgqsrs bacterial blood aerobic w/id isolatesAric Turner MD Work Phone: Start: 26-92-4664Vfibqjkhxnx panelMefabiola Aranda MD Work Phone: Start: 67-69-5861Zouwkmjdgdy virus DNA+RNA [Identifier] in Unspecified specimen by ESTELITA with probe detectionGi Aranda MD Work Phone: Start: 22-96-7694YIL screeningDR DOCTOR MISCComment on above:Performed By: #### CMP #### [facility] Laboratory [address] [place] [address] Dr. Dwight WatersStart: 02-29-4039Ucmd nfros tube req fluoro guidanceColin E Blu LUZ Work Phone: Start: 37-34-5027Dc abdomen & pelvis w/o contrast Archie Byrd MD Work Phone: Start: 03-37-4250Nwraczu bct isol&prsmptv id isolate ea urineUday S Tammy LU Work Phone: Start: 82-73-1149EIXVH MICROUday S Tammy LEIGH Work Phone: Start: 50-88-6032Kqasnzuyvd glycosylated l2uKtny S Tammymatthew LEIGH Work Phone: Start: 85-08-5189Iuvxuzc function panelYovani Orr MD Work Phone: Start: 69-49-4912PBEGFYWWDN REFLEX TO CULTUREUday S Tammy LEIGH Work Phone: Start: 79-22-7434Lydolbbjj antegrade rs&iNicholakatarzyna Byrd MD Work Phone: Start: 28-13-7661Atlgj of magnesiumEvan Bennett MD Work Phone: Start: 21-78-9301Rwaem of Savana Gamez MD Work Phone: Start: 28-09-0169Iblni of Ashley Bennett MD Work Phone: Start: 77-44-6811Aiqvn of aSvana Gamez MD Work Phone: Start: 38-21-7580Dinbr of Ashley Bennett MD Work Phone: Start: 41-87-7984Udqropmgjb exam chest single view Nishant Gamez MD Work Phone: Start: 15-64-9948Mwrge of Savana Gamez MD Work Phone: Start: 29-39-1845Lflr nephrostomy cath prq new access rs&iAnil Kisha MDStart: 34-59-8753Crfnfgk bct isol&prsmptv id isolate ea urine Nishant Gamez MD Work Phone: Start: 36-05-1698Tjapo of Ashley Bennett MD Work Phone: Start: 54-27-1665Vh trnsplnt kidney real time w/image Naya Gamez MD Work Phone: Start: 44-13-8983Hjtzqthgbh bloodNishant Gamez MD Work Phone: Start: 08-32-8169Affgq of Ashley Bennett MD Work Phone: Start: 36-99-9725Qpbe screen quantitative tacrolimus Evan Bennett MD Work Phone: Start: 35-10-1625Phpulhks urineEvan Bennett MD Work Phone: Start: 50-54-3514Diemghi bacterial blood aerobic w/id Sunny Bennett MD Work Phone: Start: 41-77-0927KRSF-CoV-2 (COVID-19) RNA [Presence] in Unspecified specimen by ESTELITA with probe detectionFred Prince MD Work Phone: Start: 88-45-5806Xtlunczbjx exam chest single view Evan Bennett MD Work Phone: Start: 03-81-5806Eudoguh bct isol&prsmptv id isolate ea urineVladislav Elizalde MD Work Phone: Wtart: 48-33-6800SITDY MICROVladislav Elizalde MD Work Phone: Start: 55-81-7000Tnses dip stick/tablet rgnt auto w/o microscopyVladislav Elizalde MD Work Phone: Ptart: 06-84-7739Lyfsw of lipaseVladislav Elizalde MD Work Phone: Start: 88-30-9300CBF AND ELECTRONIC DIFFVladislav Elizalde MD Work Phone: Start: 49-23-9701Fanqigkk blood count with white cell differential, automatedVladislav Elizalde MD Work Phone: Start: 43-82-6293XGFU TOP Saad Elizalde MD Work Phone: Start: 96-73-7206Nizncmf function panelVladislav Elizalde MD Work Phone: Start: 03-32-8516MVQRAEHS TOP Saad Elizalde MD Work Phone: Start: 87-91-0121PJ BLUE TOP Saad Elizalde MD Work Phone: Start: 97-27-4100XFYE GREEN TOP Saad Elizalde MD Work Phone: Start: 32-62-2609LNPZJDZ DRAWVladislav Elizalde MD Work Phone: Start: 05-10-2020H/O: liver recipientS/P liver transplantDiane [facility] Work Phone: start: 04-08-2020H/O: liver recipientLiver transplant recipientComfort [facility] Work Phone: start: 84-21-2024Ecrocqhac serum plasma/whole blood ROB KASMANIStart: 93-99-9841Lavqroobw serum plasma/whole bloodKimberly Rist Work Phone: Start: 70-64-4744Cnmeolsezw of kidneyAurora Orzech Start: 92-73-2858Ysqbznnkevnjnyo of liverAurora Orzech Start: 02-18-5542VGZXCYUMLT AND HEMATOCRIT, BLOODRAHIL KASMANIStart: 77-81-9833Dquoc count hemoglobinBikram S Johar Work Phone: Start: 70-65-4787JmkpjdeqmrxTwkchai ProviderStart: 47-91-0779Dupcc count hemoglobinKimberly Rist Work Phone: Start: 75-01-3187Rhekk count hemoglobinRAHIL KASMANI Start: 27-37-9457Rxwol count hemoglobinRahil Kasmani Work Phone: Start: 99-71-6671Tkgsubqctz glycosylated s8oTFFQN KASMANIStart: 24-27-1699Edqyvmniwz glycosylated j9tGqelw Kasmani Work Phone: Start: 73-42-4175Zzsso count hemoglobinRahil Kasmani Work Phone: Start: 59-31-4655Zumulyn of renal transplantDeceased- donor kidney transplant recipientAnnalisePrinceton Community Hospital Work Phone: start: 87-62-5518DKITUFZMCU AND HEMATOCRIT, BLOODRAHIL KASMANIStart: 79-51-1323Waegc count hemoglobinRAHIL KASMANIStart: 03-22-2019 Lipid 1996 panel - Serum or PlasmaComfort [facility] Work Phone: start: 00-25-4164Woflpiigm serum plasma/whole blood ROB KASMANIStart: 10-19-2018 End: 92-74-8777Obkcghgmtggiujr of abdomenAdam J [employer] Phone: Start: 10-12-2018 End: 72-98-1031Uwnli typing serologic aboAdam J [employer]es[employer] Phone: Start: 10-12-2018 End: 64-99-9467Qxdqxllgnv glycosylated i1yZysu J [employer] Work Phone: Start: 10-12-2018 End: 47-01-261703 hydroxy includes fractions if performedAdam J [employer] Work Phone: Start: 10-12-2018 End: 59-59-8506Reicjjm serum plasma/whole bloodAdam J [employer] Phone: Start: 10-12-2018 End: 06-13-3892Gzgrp-fetoprotein serumAdam J [employer] Phone: Start: 10-12-2018 End: 09-99-3626Zienhhwm cytomegalovirus cmvAdam J [employer] Phone: Start: 10-12-2018 End: 27-78-6879Sktlqctf dann-montes eb virus viral capsid vcaAdam J [employer] Phone: Start: 10-12-2018 End: 45-63-2505Lgmmhlqc herpes smplx type 1Adam J [employer] Phone: Start: 10-12-2018 End: 42-67-7849Cuxbcvqc rubeolaAdam J [employer] Phone: Start: 10-12-2018 End: 46-69-2483Nvjekpwi varicella-zosterAdam J [employer] Phone: Start: 10-12-2018 End: 15-62-0240Avtkx of ethanolAdam J [employer] Phone: Start: 10-12-2018 End: 04-64-6575Ivqlc of ferritinAdam J [employer] Phone: Start: 10-12-2018 End: 88-78-2161Snwvq of ironAdam J [employer] Work Phone: Start: 10-12-2018 End: 22-41-9935Nxizg of parathormoneAdam J [employer] Work Phone: Start: 10-12-2018 End: 21-89-8228Ngqjh of phosphatase alkalineAdam J [employer] Phone: Start: 10-12-2018 End: 90-02-1184Muiiakruk totalAdam J [employer] Work Phone: Start: 10-12-2018 End: 31-69-9637Qwptjux totalAdam J [employer] Phone: Start: 10-12-2018 End: 17-44-5477GHE, EDIF, PLATELETAdam J [employer] Phone: Start: 10-12-2018 End: 16-20-6230Tcqzifmrrh bloodAdam J [employer] Phone: Start: 10-12-2018 End: 92-92-4046Ufqq screening cannabinoids naturalAdam J [employer] Phone: Start: 10-12-2018 End: 67-21-8763Yoteerwpo a antibody haabAdam J [employer] Phone: Start: 10-12-2018 End: 66-27-6390Aurkfarxx b core antibody hbcab totalAdam J [employer] Phone: Start: 10-12-2018 End: 72-45-8109Iysjfjiuc b surf antibody hbsabAdam J [employer] Phone: Start: 10-12-2018 End: 22-99-6739Eitkmauma c antibodyAdam J [employer] Phone: Start: 10-12-2018 End: 83-58-3423Urvb ia hepatitis b surface antigenAdam J [employer] Phone: Start: 10-12-2018 End: 42-85-3633Sgxb ia hiv-1 ag w/hiv-1 & hiv-2 antbdy singleAdam Magalie [employer] Phone: Start: 10-12-2018 End: 77-38-8873PYA screeningAdaflower [employer] Work Phone: Start: 10-12-2018 End: 13-46-6067Zqumgcsfwqhgnt time partial plasma/whole bloodAdam Magalie [employer] Work Phone: Start: 10-12-2018 End: 87-31-4049Nwfhs of ethanolAdam Magalie [employer] Work Phone: Start: 10-12-2018 End: 12-06-3936Lwzq/substance definitive qual/quant nos 7/moreAdam Magalie [employer] Work Phone: Start: 10-12-2018 End: 70-64-6811Qaclhly total xcpt refractometry urineAdam Magalie [employer] Phone: Start: 10-12-2018 End: 27-75-0003ZLYZTC MEASUREDAdam Magalie [employer] Work Phone: H/O: liver recipientLiver replaced by Alethea LEIGH Work Phone: H/O: liver recipientLiver transplant recipientLindsay A Sobotka DO Work Phone: H/O: liver recipientS/P liver transplantGeneric ProviderH/O: liver recipientLiver transplant recipientLindsay A Sobotka DO Work Phone: H/O: liver recipientLiver transplant statusZuly Bruno RX SPECIALIST Work Phone: H/O: liver recipientS/P liver transplant (CMS/HCC)Zuly Bruno RX SPECIALIST Work Phone: H/O: liver recipientLiver transplant status (CMS/HCC) Zuly Bruno RX SPECIALIST Work Phone: H/O: liver recipientLiver transplant statusTony Hernandez MD Work Phone: H/O: liver recipientLiver transplant statusTony Hernandez MD Work Phone: H/O: liver recipientHistory of liver transplantLisa Floresjose e RX SPECIALIST-C Work Phone: H/O: liver recipientLiver transplant status (HCC)Tony Hernandez MD Work Phone: H/O: liver recipientLiver transplant recipientChristiane Parker MD Work Phone: History of renal transplantKidney replaced by transplantUday S Tammy MBBS Work Phone: History of renal transplantDeceased-donor kidney transplant recipientRyan Yepez MD Work Phone: History of renal transplantKidney replaced by transplantLinsanjana Max DO Work Phone: History of renal transplantKidney replaced by transplantUday S Tammy MBBS Work Phone: History of renal transplantKidney replaced by transplantUday S Tammy MBBS Work Phone: History of renal transplantDeceased-donor kidney transplant recipientUday S Tammy MBBS Work Phone: History of renal transplantKidney replaced by Nick Gutierrez 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 Work Phone: History of renal transplantKidney replaced by Nick Gutierrez 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 Work Phone: Plan of Treatment DateCare ActivityDetailAuthorStart: 28-40-9160Xemohroyt for malignant neoplasm of colonNOMS HealthcareStart: 18-62-1729Ttatnfsmt for malignant neoplasm of colonNOMS HealthcareStart: 09-26-2026 End: 49-25-6744Ohgzfbr encounter procedureComprehensive Transplant Center [facility] Spine HospitalStart: 58-98-8558Beagxzyoa [Moles/volume] in Serum or Plasma POTASSIUMOSU [facility] CenterStart: 71-77-2943Dvlzhewga [Moles/volume] in Serum or PlasmaPOTASSIUMOSU WeAultman [facility] Hospitaltart: 06-12-2026Medicare Annual Wellness (AWV)Medicare Annual Wellness (AWV)[facility] HealthcareStart: 63-76-7574Ikeqdsqug [Moles/volume] in Serum or PlasmaPOTASSIUMOSU [facility] Hospitaltart: 03-20-2026 End: 04-90-2108Grfylwy encounter afmoqbkrg02/21/2026 9:30 AM EDT Office Visit [facility] [address] [place] [address] Tony Hernandez MD [address] [place] [address] NOMKatarzyna [facility] EndocrinologyStart: 86-30-7564Quqxihboq [Moles/volume] in Serum or PlasmaPOTASSIUMOSU [facility] Hospitaltart: 09-20-2025 End: 07-58-1991Werircm encounter xiwzqpuhi57/22/2025 8:00 AM EDT Office Visit [facility] [address] [place] [address] Arjuujokipxob Transplant 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) Expected: 09/19/2025 (Ap proximate), Expires: 09/19/2026[facility] Work Phone: Comment on above:Expected: 09/19/2025 (Approximate), Expires: 09/19/2026Start: 09-19-2025 End: 89-47-8119Qwauluzvij.intact and Calcium panel - Serum or PlasmaPTH, intact and calcium Lab Routine 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) Expected:09/19/2025 (Approximate), Expires: 09/19/2026[facility] HealthcareComment on above:Expected: 09/19/2025 (Approximate), Expires: 09/19/2026Start: 09-19-2025 End: 56-76-9261Bsffg function panelRenal function panel Lab Routine 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) Expected: 09/19/2025 (Approximate), Expires: 09/19/2026[facility] HealthcareComment on above:Expected: 09/19/2025 (Approximate), Expires: 09/19/2026Start: 09-19-2025 End: 73-43-8998Gairnkq encounter procedureNOMS ENDOCRINOLOGYComment on above: ArrivedStart: 87-66-6348Eytsapnfv [Moles/volume] in Serum or PlasmaPOTASSIUMOSU [facility] CenterStart: 08-11-2025 End: 31-77-8885Lmonsia encounter mkjdtvwjo77/12/2025 10:30 AM EDT Office Visit [facility] [address] [place] [address] Rebeca Gutierrez APRN-MANAGEMENT DEPARTMENT CHAIR [address] [place] [address] [facility] HospitalStart: 08-10-2025 End: 86-42-4546Bnbzxqw encounter procedureNOMS CW FMStart: 08-04-2025 End: 67-09-2277Ywzurdn encounter /05/2025 10:00 AM EDT Office Visit [facility] [address] [place] [address] [phone] [facility]plant Center [facility] HospitalStart: 58-65-2590ZOKSM-19 Vaccine ( season)COVID-19 Vaccine ( season)[facility] HealthcareStart: 69-05-1766Yqytnqfzh vaccinationINFLUENZA VACCINE (#1)[facility] Hospitaltart: 07-04-2025 Potassium [Moles/volume] in Serum or PlasmaPOTASSIUMOSU [facility] Start: 72-94-2771Blkphvfrw [Moles/volume] in Serum or PlasmaPOTASSIUMOSU [facility] Hospitaltart: 06-16-2025 End: 83-54-5414Esmsogf encounter procedureComprehensive Transplant Center [facility] Spine HospitalStart: 60-45-3027Cozlklpdc [Moles/volume] in Serum or Plasma POTASSIUMOSU [facility] Hospitaltart: 99-92-9398Hrrfzwnyh [Moles/volume] in Serum or PlasmaPOTASSIUMOSU [facility] Hospitaltart: 05-11-2025 End: 89-21-4577Qqzmtsm encounter procedureNOMS CW FMComment on above:DARLENE (obstructive sleep apnea) (Primary Dx); Other polyneuropathy; Arteriosclerosis of coronary artery ; Primary hypertension ; Gastroesophageal reflux disease, unspecified whether esophagitis present; Other osteoporosis without current pathological fracture ; Obesity (BMI 30-39.9); Encounter for subsequent annual wellness visit (AWV) in Medicare patientStart: 14-50-3000Mdwmzpqer [Moles/volume] in Serum or PlasmaPOTASSIUMOSU [facility] Hospitaltart: 03-21-2025 End: 480281-zibzzpvppmauuu D3 [Mass/volume] in Serum or PlasmaVitamin D 25 hydroxy Total Lab Routine Vitamin D deficiency Expected: 03/21/2025 (Approximate), Expires: 03/21/2026[facility] HealthcareComment on above:Expected: 03/21/2025 (Approximate), Expires: 03/21/2026Start: 03-21-2025 End: 24-45-6628Oegddkopm [Mass/volume] in Serum or PlasmaMagnesium Lab Routine Other osteoporosis without current pathological fracture Expected: 03/21/2025 (Approximate), Expires: 03/21/2026[facility] Work Phone: Comment on above:Expected: 03/21/2025 (Approximate), Expires: 03/21/2026Start: 03-21-2025 End: 99-18-5175Ydjnipqlhc.intact [Mass/volume] in Serum or PlasmaPTH, intact Lab Routine Other osteoporosis without current pathological fracture Expected: 03/21/2025 (Approximate), Expires: 03/21/2026[facility] HealthcareComment on above: Expected: 03/21/2025 (Approximate), Expires: 03/21/2026Start: 03-21-2025 Potassium [Moles/volume] in Serum or PlasmaMOUNTAIN VISTA MEDICAL CENTERASSIUMOur Lady of Mercy [facility] Start: 03-21-2025 End: 81-16-3140Zxjdi function panelRenal function panel Lab Routine Other osteoporosis without current pathological fracture Expected:03/21/2025 (Approximate), Expires: 03/21/2026[facility] HealthcareComment on above:Expected: 03/21/2025 (Approximate), Expires: 03/21/2026Start: 03-21-2025 End: 78-02-4719Jtbtpng encounter procedureNOMS ENDOCRINOLOGYComment on above: ArrivedStart: 02-28-2025 End: 610733-zwuvaunxrgjokt D3 [Mass/volume] in Serum or PlasmaVitamin D 25 hydroxy Lab Routine Other osteoporosis without current pathological fracture ([facility])Expected: 02/28/2025 (Approximate), Expires: 02/28/2026[facility] Comment on above:Expected: 02/28/2025 (Approximate), Expires: 02/28/2026Start: 02-28-2025 End: 17-09-3622Ppulvar, urine, 24 hourCalcium, urine, 24 hour Lab Routine Other osteoporosis without current pathological fracture ([facility]/HCC) Expected: 02/28/2025 (Approximate), Expires: 02/28/2026[facility] HealthcareComment on above: Expected: 02/28/2025 (Approximate), Expires: 02/28/2026Start: 02-28-2025 End: 26-26-9039Bebfeqxbcn, urine, 24 hourCreatinine, urine, 24 hour Lab Routine Other osteoporosis without current pathological fracture ([facility]/HCC) Expected: 02/28/2025 (Approximate), Expires: 02/28/2026[facility] HealthcareComment on above: Expected: 02/28/2025 (Approximate), Expires: 02/28/2026Start: 02-28-2025 End: 31-05-1957Sakdswyoh [Mass/volume] in Serum or PlasmaMagnesium Lab Routine Other osteoporosis without current pathological fracture (CMS/HCC) Expected: 0 02/28/2025 (Approximate), Expires: 02/28/2026[facility] Work Phone: Comment on above:Expected: 02/28/2025 (Approximate), Expires: 02/28/2026Start: 02-28-2025 End: 83-26-9064Wiblosdelq.intact [Mass/volume] in Serum or PlasmaPTH, intact Lab Routine Other osteoporosis without current pathological fracture (CMS/HCC) Expected: 02/28/2025 (Approximate), Expires: 02/28/2026[facility] HealthcareComment on above:Expected: 02/28/2025 (Approximate), Expires: 02/28/2026Start: 02-28-2025 Potassium [Moles/volume] in Serum or PlasmaMOUNTAIN VISTA MEDICAL CENTERASSIUMOur Lady of Mercy [facility] Start: 02-28-2025 End: 82-17-5496Fcvck function panelRenal function panel Lab Routine Other osteoporosis without current pathological fracture (CMS/HCC)Expected: 02/28/2025 (Approximate), Expires: 02/28/2026[facility] HealthcareComment on above:Expected: 02/28/2025 (Approximate), Expires: 02/28/2026Start: 02-28-2025 End: 20-05-7927Loqncg, urine, 24 hourSodium, urine, 24 hour Lab Routine Other osteoporosis without current pathological fracture (CMS/HCC) Expected: 02/28/2025 (Approximate), Expires: 02/28/2026[facility] HealthcareComment on above: Expected: 02/28/2025 (Approximate), Expires: 02/28/2026Start: 02-28-2025 End: 23-33-7866Yggvavf encounter procedureNOMS ENDOCRINOLOGYComment on above: Other osteoporosis without current pathological fracture; Liver transplant status; Organ transplantStart: 03-14-2025Medicare Annual Wellness (AWV)Medicare Annual Wellness (AWV)[facility] HealthcareStart: 02-08-2025 End: 76-76-7158Ispgbyd encounter umpkqvptt40/12/2025 8:40 AM EDT Office Visit [facility] [address] [place] [address] Zuly Bruno, RX SPECIALIST [address] [place] [address] [facility] FMStart: 03-13-1681Cqcxcllvs [Moles/volume] in Serum or PlasmaPOTASSIUMOSU [facility] CenterStart: 93-10-3494TxjiegcgmSelect Medical [facility] Hospital - Dublintart: 11-07-2024 End: 41-56-9337Xushfaz encounter hdrabelek27/09/2024 2:20 PM EST Office Visit [facility] [address] [place] [address] Zuly Bruno, RX SPECIALIST [address] [place] [address] [facility] FMStart: 10-25-2024 End: 69-14-3806Ytsngxu encounter hqvdagiwh05/26/2024 8:40 AM EST Office Visit [facility] [address] [place] [address] Zuly Bruno, RX SPECIALIST [address] [place] [address] [facility] FMStart: 25-71-8734Bsfvkesjb vaccinationInfluenza Vaccine (#1)[facility] HealthcareComment on above:Postponed from 07/31/2024 (Patient Refused)Start: 09-07-2024 End: 53-05-6406Ayzirmkfuzls consultation with bdoeams4609/07/2024 3:00 PM EDT Telemedicine Infectious Diseases Care [facility] [address] [place] [address] Evan White DO [address] [phone] [facility] Outpatient CareStart: 70-79-4180Bwdwhgutg for malignant neoplasm of lungOSU [facility] Memorial Hospitaltart: 08-23-2024 End: 54-28-5108Qxlprjzr identified in Urine by CultureUrine culture (clean catch) Microbiology Routine Dysuria Expected: 08/23/2024 (Approximate), Expires: 08/23/2025[facility] HealthcareComment on above:Expected: 08/23/2024 (Approximate), Expires: 08/23/2025Start: 08-23-2024 End: 75-24-9596BYL Skeletal system Views for bone densityDEXA bone density Imaging Routine Immunocompromised ([facility]) Organ transplant Expected: 08/23/2024, Expires: 08/23/2025[facility] Work Phone: Comment on above:Expected: 08/23/2024, Expires: 08/23/2025Start: 08-23-2024 End: 37-51-8276Wgbesvendz A1c/Hemoglobin.total in BloodHemoglobin A1c Lab Routine Blood glucose elevated Expected: 08/23/2024 (Approximate), Expires: 08/23/2025NO HealthcareComment on above:Expected: 08/23/2024 (Approximate), Expires: 08/23/2025Start: 08-23-2024 End: 04-26-6384Xljng 1996 panel - Serum or PlasmaLipid panel Lab Routine Mixed hyperlipidemia ([facility]) Expected: 08/23/2024 (Approximate), Expires:08/23/2025 [facility] HealthcareComment on above:Expected: 08/23/2024 (Approximate), Expires: 08/23/2025Start: 08-23-2024 End: 15-43-5708Mpdiomcn specific Ag [Mass/volume] in Serum or PlasmaPSA Lab Routine Prostate cancer screening Expected: 08/23/2024 (Approximate), Expires: 08/23/2025[facility] HealthcareComment on above:Expected: 08/23/2024 (Approximate), Expires: 08/23/2025Start: 08-23-2024 End: 97-07-9246Kxyhugkwjhx [Units/volume] in Serum or PlasmaTSH Lab Routine Tremor Expected: 08/23/2024 (Approximate), Expires: 08/23/2025[facility] Comment on above:Expected: 08/23/2024 (Approximate), Expires: 08/23/2025Start: 08-23-2024 End: 29-22-6313Jwkmrvwjqd complete panel - UrineUrinalysis with reflex microscopic (clean catch) Lab Routine Dysuria Expected: 08/23/2024 (Approxima te), Expires: 08/23/2025[facility] HealthcareComment on above:Expected: 08/23/2024 (Approximate), Expires: 08/23/2025Start: 08-23-2024 End: 69-75-8897RE.doppler Carotid arteries - bilateralVascular US carotid artery duplex bilateral Imaging Routine Left carotid bruit Mixed hyperlipidemia (CMS/HCC) Expected: 08/23/2024, Expires: 08/23/2025[facility] HealthcareComment on above:Expected: 08/23/2024, Expires: 08/23/2025Start: 08-23-2024 End: 90-82-0371Cfenodz encounter ykqsusabf60/24/2024 8:40 AM EDT Office Visit [facility] [address] [place] [address] Zuly Bruno, BA [address] [place] [address] Primary hypertension (CMS/HCC) (Primary Dx); Portal hypertension (CMS/HCC); Alcoholic cirrhosis ofliver without ascites (CMS/HCC) [facility] FMComment on above:Primary hypertension (CMS/HCC) (Primary Dx); Portal hypertension (CMS/HCC); Alcoholic cirrhosis of liver without ascites (CMS/HCC)Start: 08-22-2024 End: 62-64-9387Irnkixg encounter bfnaoztjg73/23/2024 9:00 AM EDT Office Visit [facility] [address] [place] [address] Zuly Bruno NP [address] [place] [address] [facility] FMStart: 12-76-5377Wakmyaxbx vaccinationINFLUENZA VACCINE (#1)[facility] Hospitaltart: 06-17-2024 End: 73-80-9531geadxskfpcTohhigbcduyev [facility] HospitalStart: 06-17-2024 End: 89-21-9708Cubqspi encounter procedureComprehenlevine children's hospital [facility] HospitalStart: 46-77-1929Mykwbyx lipid profileLIPID SCREENINGOSMiddletown Hospitaltart: 75-19-1916Vptol panelOSMiddletown Hospitaltart: 02-26-2024 End: 83-82-1103Wnddayy encounter aysaiphkq42/29/2024 9:30 AM EDT Office Visit [facility] [address] [place] [address] Candie Almaguer MD [address] [place] [phone] (Work) [facility]tart: 02-11-2024 End: 72-53-9764Qjhsegx encounter hxptmeltr48/14/2024 10:30 AM EDT Office Visit [facility] [address] [place] [address] Zuly Bruno NP [address] [place] [address] [facility] FMStart: 02-09-2024 End: 14-38-4825Ygmtfpiohfxt consultation with nvmnaoa1602/09/2024 3:30 PM EDT Telemedicine Infectious Diseases Care [facility] [address] [place] [address] [address] [place] [address] Cristóbal Ko MD [address] [place] [address] [facility] CareStart: 01-15-2024 End: 83-88-0001fxlrmfzmvjMctczbpzcpphc [facility] HospitalStart: 01-15-2024 End: 20-31-5131Xytqilh encounter procedureComprehenve [facility] HospitalStart: 01-06-2024 End: 51-04-9366Zjfibiruofeovh 2D completeEchocardiogram 2D complete Echocardiography Routine DARLENE (obstructive sleep apnea) Primary hypertension (CMS/HCC) Bilateral lower extremity edema Shortness of breath Expected: 01/06/2024 (Approximate), Expires: 01/06/2026[facility] Work Phone: Comment on above:Expected: 01/06/2024 (Approximate), Expires: 01/06/2026Start: 01-06-2024 End: 43-20-4240Mkymovb encounter doiaonbzr20/07/2024 9:00 AM EST Office Visit [facility] [address] [place] [address] Zuly Bruno NP [address] [place] [address] [facility] FMStart: 12-08-2023 End: 64-63-5512PS Chest WO contrastOS[facility] Work Phone: Start: 21-59-8934KFDFW-19 VACCINE (2 - Moderna risk series)COVID-19 VACCINE (2 - Moderna risk series)[facility] 09-23-2023 End: 56-53-0181lznxumfbcfDuimdhhqrz Diseases Care [facility] Start: 09-23-2023 End: 12-93-3154Zvqkomgvatwy consultation with geboqvt9709/23/2023 4:00 PM EDT Telemedicine Infectious Diseases Care [facility] [address] [place] [address] Cristóbal Ko MD [address] [place] [address] Infectious Diseases [facility] CareStart: 09-15-2023 End: 06-78-7257TCGGQZOTMYXS [facility]: 08-25-2023 End: 83-64-3441XKDMCBOJRD RECIPIENT (POST TX PRA)ALLOSCREEN RECIPIENT (POST TX PRA) Lab Routine Kidney replaced by transplant Aftercare following organ transplant Immunosuppressed status High risk medication use Other general symptoms and signs Abnormal blood chemistry Expected: 08/25/2023, Expires: 08/25/2024[facility] AndersonComment on above:Expected: 08/25/2023, Expires: 08/25/2024Start: 39-16-8219Apizhfkxl [facility]art: 06-12-2023 End: 67-22-8220Szimjcp encounter juuxgggjl19/14/2023 Office Visit Transplant Surgery Steve Munoz MBBS [address] [place] [address] [facility]: 03-11-2023 End: 48-92-2070Xqxgeffzonun consultation with psgwrcx2203/11/2023 Telemedicine Urology Ryan Yepez MD [address] [place] [address] [address] [place], [place] [id number] [facility]Start: 01-16-2023 End: 49-66-0263Lsqyiyn encounter qpcdhhavs54/17/2023 Office [facility] HospitalStart: 10-31-2022 End: 39-92-8032Sxxlqkl encounter fkrtibkqj22/02/2022 Office Visit Transplant Surgery Steve Munoz MBBS [address] [place] [address] [facility] HospitalStart: 09-10-2022 End: 69-99-9019ZVN screeningPSA, SCREENING Lab Routine BPH with obstruction/lower urinary tract symptoms Encounter for screening for malignant neoplasm of prostate Expected: 09/10/2022 (Approximate), Expires: 09/10/2023[facility] CenterComment on above:Expected: 09/10/2022 (Approximate), Expires: 09/10/2023Start: 08-11-2022 End: 37-25-0129Jjjxlzb encounter zcxocmwug07/12/2022 Office Visit Urology Ryan Yepez MD [address] [facility] [address] [place] [address] [facility] InstituteStart: 20-65-2707Ddkpdfkvd [facility]ertart: 07-07-2022 End: 14-07-9478Jiflktr encounter znnldvlyt39/08/2022 Office Visit UrologRyan Batista MD [address] [facility] [address] [place] [address] [facility] InstituteStart: 07-07-2022 End: 19-23-5985PJATVX IMAGING FOR UROLOGYOSU [facility] CenterComment on above:Expected: 07/07/2022, Expires: Occurrences starting 07/07/2022 until 07/07/2022tart: 06-27-2022 End: 10-75-6993Jklcsfs encounter vtwdsonmv30/29/2022 Office Visit UrologRyan Batista MD [address] [facility] [address] [place] [address] [facility] InstituteStart: 06-27-2022 End: 33-05-2513Qafhd metabolic 2000 panel - Serum or PlasmaBASIC METABOLIC PANEL Lab Routine Other hydronephrosis Expected: 06/27/2022, Expires: 06/27/2023[facility] AndersonComment on above:Expected: 06/27/2022, Expires: 06/27/2023 Start: 06-27-2022 End: 92-47-1853Sanrwxa encounter vgilfrsnm72/29/2022 Appointment Computerized Tomography Scan Ryan Yepez MD [address] [facility] [address] [place] [address] Department of Radiology Start: 06-15-2022 End: 21-21-6870BA Abdomen and Pelvis WO contrastCT ABDOMEN/PELVIS WITHOUT CONTRAST Imaging Routine FAYE (acute kidney injury) Expected: 06/15/2022 (A pproximate), Expires: 05/16/2023[facility] Work Phone: Comment on above:Expected: 06/15/2022 (Approximate), Expires: 05/16/2023Start: 06-12-2022 End: 72-18-8428Pkkixqm encounter blurxzdps80/14/2022 Office Visit Transplant Surgery Steve Munoz MBBS [address] [place] [address] [facility] HospitalStart: 06-11-2022 End: 87-46-7450UA VIRUS DNA QN, PCR, PLASMABK VIRUS DNA QN, PCR, PLASMA Lab Routine Kidney replaced by transplant Liver replaced by transplantAbnormal blood chemistry Expected: 06/11/2022, Expires: 06/11/2023[facility] Comment on above:Expected: 06/11/2022, Expires: 06/11/2023Start: 06-04-2022 End: 84-80-2930Binlhkd encounter tfqzgmjip71/06/2022 Office Visit Interventional RadiologyInterventional Radiology ClinicStart: 10-18-2021 End: 30-73-9333Rbkqazz encounter unpesmmpw08/19/2021 Office Visit Transplant Surgery Steve Munoz MBBS [address] [place] [address] [facility] HospitalStart: 25-04-2262Qlnahbseb vaccinationINFLUENZA VACCINE (#1)[facility]art: 07-26-2021 End: 22-99-2743Rkyhgcm encounter ohuskonbp38/27/2021 Office Visit Transplant SurgeryComprehensive Transplant Center [facility] HospitalStart: 2021 Prostate specific antigen measurementOSU Greene Memorial Hospitaltart: 2021 Screening for malignant neoplasm of lungLUNG CANCER SCREENINGOSMiddletown Hospitaltart: 73-20-8522Dxbinc vaccine hzv live for subcutaneous useZOSTER (SHINGLES) VACCINE (1 of 2)OS[facility]own Hospitaltart: 32-54-1600Nuoghihkcgh COLORECTAL CANCER SCREENING DISCUSSIONOSMiddletown Hospitaltart: 09-20-2020 Screening for malignant neoplasm of colonOSMiddletown Hospitaltart: 55-25-0461Roevnjqlo vaccinationFlu vaccine (#1)[facility]: 81-13-6450Eihrsx Wellness Visit (AWV)Annual Wellness Visit (AWV)[facility]: 04-18-2019 End: 11-31-3030Foqewawdvktbvpa of abdomenUS ABDOMEN RUQ/LIVER/GB Routine Cirrhosis of liver without ascites, unspecified hepatic cirrhosis type Expected: 04/18/2019 (Approximate), Expires: 10/19/2019[facility] Work Phone: Comment on above:Expected: 04/18/2019 (Approximate), Expires: 10/19/2019Start: 01-25-2019 End: 43-47-6673Kdqlaqgxsf68/26/2019 Office Visit Gastroenterology Christin Elizabeth, 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 [address] [place], [place] [phone] Division of Gastroenterology and Hepatology Amytart: 11-19-2018 End: 38-07-8785Qakmkviktz13/21/2018 Appointment Pulmonary DiagnosticsPulmonary Diagnostics LabStart: 11-19-2018 End: 53-42-2591FelhnkdcbkVKS [facility] Start: 10-19-2018 End: 85-14-0229LbnhenumbaFzdxtiqdcj DoanStart: 10-12-2018 End: 50-63-7122Mioxyyxdgr A1c/Hemoglobin.total mass fraction (Bld)HEMOGLOBIN A1C Routine Alcoholic cirrhosis, unspecified whether ascites present Pre-transplant evaluation for liver transplant Expected: 10/12/2018, Expires: 10/12/2019[facility] Work Phone: Comment on above:Expected: 10/12/2018, Expires: 10/12/2019Start: 10-12-2018 End: 35-78-5149TKLZ AND SCREEN - NOT FOR TRANSFUSIONTYPE AND SCREEN - NOT FOR TRANSFUSION Routine Alcoholic cirrhosis, unspecified whether ascites present Pre-transplant evaluation for liver transplant Expected: 10/12/2018, Expires: 10/12/2019[facility] Work Phone: Comment on above:Expected: 10/12/2018, Expires: 10/12/2019Start: 88-19-1838Mgcoszfjx vaccinationINFLUENZA VACCINE (#1)[facility] Work Phone: Start: 07-81-2337Gmynhdo lipid profileLIPID SCREENING [facility] Work Phone: Start: 88-08-9589Sjscg screenLipid screenWatersmeet, [place]Start: 15-74-8581KOuF/Tdap/Td vaccine (1 - Tdap)DTaP/Tdap/Td vaccine (1 - Tdap)[place], [place] be[place]: 39-12-2149Shcxpbzqv A Vaccines (1 of 2 - Risk 2-dose series)Hepatitis A Vaccines (1 of 2 - Risk 2-dose series)[facility] Start: 32-69-9854Jniffotbj B vaccinationHEP B VACCINE (1 of 3 - 19+ 3-dose series)[facility]: 92-15-4872Skhzljjdt B Vaccine (1 of 3 - Risk Recombivax 3-dose series)Hepatitis B Vaccine (1 of 3 - Risk Recombivax 3- dose series)[facility]: 77-44-5685Fijiboqqs B Vaccines (1 of 3 - 19+ 3-dose series)Hepatitis B Vaccines (1 of 3 - 19+ 3-dose series)[facility] HospitalStart: 47-42-3300Nfqdpiopaats vaccinationPNEUMOCOCCAL VACCINE SERIES (1 of 2 - PCV)[facility]: 76-39-7107Wsoeqggqxpmf Vaccine: Pediatrics (0 to 5 Years) and At-Risk Patients (6 to 64 Years) (1 of 2 - PCV) Pneumococcal Vaccine: Pediatrics (0 to 5 Years) and At-Risk Patients (6 to 64 Years) (1 of 2 - PCV)[facility] HospitalStart: 24-87-1319Feowp diphtheria, tetanus and acellular pertussis (DTaP) vaccinationOSMiddletown Hospitaltart: 60-00-1671Bexnwg vaccine hzv live for subcutaneous useZOSTER (SHINGLES) VACCINE (1 of 2)[facility]: 92-04-9340AVAOur [facility] of [facility] Start: 57-27-3997Blvusdr vaccinationTETANUSOhioHealth Dublin Methodist Hospitaltart: 26-55-1154VLR screenHIV screenAultman Hospital: 95-38-6946OKM screening HIV SCREENING [facility] Work Phone: Start: 47-93-4442MUPDI-19 VACCINE (1)COVID-19 VACCINE (1)[facility]: 02-67-6251YIqI/Tdap/Td vaccine (1 - Tdap) DTaP/Tdap/Td vaccine (1 - Tdap)[facility]: 03-31-6365KTiC/Tdap/Td Vaccines (1 - Tdap)DTaP/Tdap/Td Vaccines (1 - Tdap)[facility] HospitalStart: 95-78-3455Ujqnvzrrsram 0-64 years Vaccine (1 of 3 - PCV13)Pneumococcal 0-64 years Vaccine (1 of 3 - PCV13)[facility] [place]Start: 58-58-3641MGMSFPGEBWOR VACCINE SERIES (1 - PCV)PNEUMOCOCCAL VACCINE SERIES (1 - PCV)[facility]: 58-75-3132BRHKRXXYSVDJ VACCINE SERIES (1 of 2 - PCV)PNEUMOCOCCAL VACCINE SERIES (1 of 2 - PCV)[facility]letown Hospitaltart: 93-81-7181ARDMiddletown Hospitaltart: 14-13-0584LZQGT-19 VACCINE (#1)COVID-19 VACCINE (#1) [facility]: 49-38-5820ERWMiddletown Hospitaltart: 74-19-1428BME Vaccines (1 of 1 - Standard series)MMR Vaccines (1 of 1 - Standard series)[facility] HospitalStart: 94-42-0345BYHLR-19 VACCINE (#1)COVID-19 VACCINE (#1)[facility]: 67-42-3382Yfyrdoypb B vaccinationHEP B VACCINE (1 of 3 - 3-dose series)[facility]tart: 1970 Medicare Annual Wellness (AWV)Medicare Annual Wellness (AWV)[facility] Start: 01-22-4248Txcjovdix for malignant neoplasm of colonNOMS HealthcareStart: 22-97-4843Ivocxzi vaccinationOur Lady of Mercy Hospital - AndersonBK VIRUS DNA QN, PCR, PLASMABK VIRUS DNA QN, PCR, PLASMA Lab Routine Kidney replaced by transplant Liver replaced by transplantAbnormal blood chemistry 06/12/2022 3:38 PM [facility], URIN[facility] (KIDNEY STONE)CALCULI, URINARY (KIDNEY STONE) Fluids Routine 05/19/2022 8:16 AM [facility] Work Phone: CANNABINOIDS, QUANT (URINE)THC CONFIRMATION CANNABINOIDS, QUANT (URINE)THC CONFIRMATION Routine Alcoholic cirrhosis, unspecified whether ascites present ESRD (end stage renal disease) on dialysis Pre-transplant evaluation for liver transplant 10/12/2018 12:57 PM [facility] Work Phone: End: 45-66-1530LCGH 6 (LYTES, BUN CREA)[facility] - AndersonEBV VCA IGG AB EBV VCA IGG AB Routine Alcoholic cirrhosis, unspecified whether ascites present ESRD (end stage renal disease) on dialysis Pre-transplant evaluation for liver transplant 10/12/2018 12:57 PM [facility] Work Phone: Fungus identified in Unspecified specimen by Culture [facility] AndersonHLA TYPING (SOLID ORGAN)HLA TYPING (SOLID ORGAN) Routine Alcoholic cirrhosis, unspecified whether ascites present ESRD (endstage renal disease) on dialysis Pre-transplant evaluation for liver transplant 10/12/2018 12:57 [facility] Work Phone: HSV 1 AND 2 IGG ANTIBODYHSV 1 AND 2 IGG ANTIBODY Routine Alcoholic cirrhosis, unspecified whether ascites present ESRD (endstage renal disease) on dialysis Pre-transplant evaluation for liver transplant 10/12/2018 12:57 [facility] Work Phone: MR Abdomen WO and W contrast IVMRI ABDOMEN WITH AND WITHOUT CONTRAST Imaging Routine Liver lesion Ordered: 06/17/2024[facility] AndersonComment on above:Ordered: 06/17/2024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 specific cultureOur Lady of Mercy [facility] Patient EducationHemorrhoids ED Diverticulosis [facility] Work Phone: PLACEMENT NEPHROSTOMY CATHETER PERCUTANEOUS W/ IMAGE GUIDANCEPLACEMENT NEPHROSTOMY CATHETER PERCUTANEOUS W/ IMAGE GUIDANCE Imaging Routine Hydronephrosis due toobstruction of ureteral orifice FAYE (acute kidney injury) 05/17/2022 11:08 AM [facility] HospitalPR POST VOID RESIDUALPR POST VOID RESIDUAL RI - OFFICE PERFORMED Routine BPH with obstruction/lower urinary tract symptoms Ordered: 09/10/2022[facility] HospitalComment on above:Ordered: 09/10/2022TH INTACTPTH INTACT Routine Alcoholic cirrhosis, unspecified whether ascites present ESRD (end stage renal disease) on dialysis Pre-transplant evaluation for liver transplant 10/12/2018 12:57 PM [facility] Work Phone: RUBEOLA IGG AB (IMMUNE STATUS)RUBEOLA IGG AB (IMMUNE STATUS) Routine Alcoholic cirrhosis, unspecified whether ascites present ESRD (end stage renal disease) on dialysis Pre-transplant evaluation for liver transplant 10/12/2018 12:57 PM [facility] Work Phone: End: 84-69-9905Anhhgmqk ECGECG ECG Routine One Time for 1 Occurrences starting 01/16/2024 until 01/16/2024[facility] CenterComment on above:One Time for 1 Occurrences starting 01/16/2024 until 01/16/2024 End: 48-96-6901STAXEEDAHS LEVEL, TROUGH (PRE DRUG LEVEL)[facility] CenterVARICELLA IGG AB (IMM STATUS)VARICELLA IGG AB (IMM STATUS) Routine Alcoholic cirrhosis, unspecified whether ascites present ESRD(end stage renal disease) on dialysis Pre-transplant evaluation for liver transplant 10/12/2018 12:57 PM [facility] Work Phone: Immunizations Immunization DateImmunizationNotesCare GugwjxdvGuyarmhk66-96-9945kntfgpgyv virus vaccine, unspecified formulationAurora Orzech [facility]12-03-2024influenza, seasonal, injectable, preservative freeZuly Bruno RX SPECIALIST Work Phone: [facility]OL[facility] HospitalFogbibsetn25-79-3121pqixwvtsb virus vaccine, unspecified formulationGeneric ProviderBarnes-Jewish West County HospitalYwyolotoce38-37-1472Dddaucaxw, injectable, [place]in [place] Canine Kidney, preservative free, quadrivalentGeneric ProviderBarnes-Jewish West County HospitalGlrokkryfm21-76-6353Eeuhzrg SARS-CoV-2 50mcg/0.5mL BoosterGeneric [facility] CenterOuchwztlio72-54-3785amidhdjth virus vaccine, unspecified formulationAurora Orzech [facility]09-29-2022influenza, injectable, quadrivalent, preservative freeGeneric [facility] CenterMuoaprzxfl96-67-5787ucxhzgslj virus vaccine, unspecified formulationAurora Orzech [facility]11-01-2021influenza, injectable, quadrivalent, preservative freeGeneric [facility] CenterIqqqngxgfm58-94-9209ELHS-GpP-7 (COVID-19) mRNA-1273 vaccineAurora Orzech [facility]03-25-2021SARS-CoV-2 (COVID-19) mRNA-1273 vaccineAurora Orzech [facility]02-25-2021SARS-CoV-2 (COVID-19) mRNA-1274 vaccineAurora Orzech [facility]11-17-2020influenza virus vaccine, unspecified formulationAurora Orzech [facility]11-17-2020influenza, injectable, quadrivalent, contains preservative Generic [facility] Payers DatePayer CategoryPayerPolicy [id number]-pay2023Medicare (Managed Care)[id number] HOMES [facility] INTERMEDIATE xxx-xx-xxxx 2019-Present xxx-[id number] [id number] 2019MedicaidMEDICAID [place] MEDICAID [facility] DEPT OF JOB xxxxxxxxxxxx 2018-Present [phone] [address] [place], [place] [address]kvhzawotawbx [id number] 2019MedicaidMEDICAID MEDICAID [id number] 2018-Present [address] [place], [place] [id number] [id number] 2018Medicare MEDICARE MEDICARE PART A AND B xxxxxxxxxxx 2018-Present [phone] [address] [address] [place], [place] [address]zmanjyafddn [id number] [id number] 2018MedicareMEDICARE MEDICARE A AND B [id number] 2018-Present [address] [place], [place] [id number] [id number] 2018Medicare [id number] ..1.503565.3.57[id number] ..1.051098.3.579.[id number] ..1.898927.3.579.2.64552-56-2836Ivrarlz76489876 ..1.926231.3.579.2.77682-38-2625Fqxxofk41803636 2.16.840.1.110793.3.579.2.50037-85-2294Tdxhbdd69291380 2.840.1.719062.3.579.2.32566-33-5554Blwxyno63427367 2.840.1.561995.3.579.2.95255-22-9017Fvpwmhx03073464 2.840.1.798347.3.579.2.21102-69-2956Rzmmorz39192909 2.840.1.479464.3.579.2.84401-65-1561Aynshdj1563528 2.0.1.710328.3.579.2.68594-71-1116Chyeczr0885393 2..1.225043.3.579.2.31530-25-7043Xppkrxn5755369 2.0.1.939101.3.579.2.02216-89-2926Jymkamh0260403 2.0.1.099439.3.579.2.59377-62-9283Bcwwtwg9749268 2..1.099909.3.579.2.63009-34-6407Esywlau3360071 2..1.663969.3.579.2.39884-73-6675Duhcqlg6568319 2.840.1.513654.3.579.2.23500-84-3514Rscwfde6232747 2.0.1.122187.3.579.2.59952-20-3107Drxotlj1252929 2.840.1.959930.3.579.2.86311-91-9677Nocvldd2535142 2.0.1.044130.3.579.2.10935-59-3075Clngwpy8326960 2.840.1.941230.3.579.2.15350-45-1451Uibsjll1590055 2.0.1.293746.3.579.2.15192-63-5419Ibammfu3173074 2.840.1.835238.3.579.2.71027-09-1913Ttxhqxi5033166 2.0.1.458886.3.579.2.50135-15-4258Rzlebmd5841383 2.0.1.072739.3.579.2.23423-63-6952Xxtvupa53781344 2..1.314183.3.579.2.352372-21-4818Kpyrxer69090329 2..1.671249.3.579.2.245952-60-3044Jtumkds1106685 2..1.919077.3.579.2.899845-12-9627Jpaoxcu5397976 2..1.638208.3.579.2.994698-25-9881Qjuoawh7196278 2..1.297278.3.579.2.372965-64-1419Ylambes2474028 2..1.205066.3.579.2.198468-56-7032Nzpyeym981318048 2.0.1.179651.3.579.2.76226-55-6748Tslwnrq430620648 2.0.1.994528.3.579.2.78871-71-9089Vuesaaz97576990 2.840.1.583258.3.579.2.25741-85-0267Xciiyjq99286008 2.0.1.214524.3.579.2.14802-55-4925Wurpkvq44274667 2.840.1.072378.3.579.2.26596-84-4301Rfaglwl17053554 2.0.1.665555.3.579.2.13650-62-7224Hvbwjvu58600994 2.0.1.921107.3.579.2.727 [id number] 1960Medicare [id number] 2.840.1.699311.3.579.2.531 Social History DateTypeDetailFacilityStart: 10-19-2018 End: 60-79-8878Wrpppuu smoking status NHISFormer smokerOur Lady of Mercy [facility] Start: 07-19-1988 End: 23-66-6396Mutvlrh of tobacco useCurrent [facility] Work Phone: Start: 07-19-1988 End: 00-41-5467Iwetwmb of tobacco useCigarette [facility] Work Phone: Start: 10-19-2018 End: 97-55-2017Vdukspbhlc smoked current (pack per day) - ReportedNOPA Healthcare End: 75-41-2093Vijzrao of tobacco useChews [facility] Work Phone: Start: 24-19-1791Vxr Assigned At BirthNot on [facility] Work Phone: Start: 22-74-2155Qndxjzv intakeCurrent non-drinker of alcohol (finding)[facility]: 51-38-6842Zkxajcf CommentHx of alcoholismAultman Hospital: 11-03-2018 End: 66-82-8454Gdzceio intakeNoNOMS HealthcareStart: 06-92-3839Sxqwvuk use and exposureFormer userOSMiddletown Hospitaltart: 09-06-2020 End: 87-22-7349Gpnlspc intakeEx-drinker (finding)[facility]: 51-66-2451Gcmfuat Commentstopped 05/14/2018[facility] Hospitaltart: 05-05-2022 End: 34-68-7294Fumsvrau to SARS-CoV-2 (event)Not sureOur Lady of Mercy Hospital [facility] Start: 17-17-8144Ozsbum identityIdentifies as male gender (finding)[facility]: 73-02-8984Kujhks orientationHeterosexual (finding)[facility] Hospitaltart: 47-68-2210Xqibkot use and exposureSmokeless tobacco non-userNOMS HealthcareWithin the last year, have you been afraid of your partner or ex-partner?NoNOMS HealthcareAre you now , , , , never or living with a partner?RefusedNOMS HealthcareHow often to you have a drink containing alcohol?NeverNOPA HealthcareStart: 36-56-3955Thh many standard drinks containing alcohol do you have on a typical day?Patient does not drinkNOMS HealthcareDo you feel stress - tense, restless, nervous, or anxious, or unable to sleep at night because yourmind is troubled all the time - these days [OSQ]To some extentNOMS Healthcare(I/We) worried whether (my/our) food would run out before (I/we) got money to buy more.Never trueNOPA HealthcareStart: 00-54-4925Cfzodus CommentFormerNOPA HealthcareStart: 09-08-2024 End: 44-46-5373Cqhcsmr smoking statusNever smoked tobacco (finding)[facility] [place]Do you belong to any clubs or organizations such as latter day groups, unions, fraternal or athletic groups, or school groups?YesNOMS HealthcareAre you now , , , , never or living with a partner?MarriedNOPA HealthcareStart: 07-05-2018 End: 16-35-0369JwzUgch (finding)[facility] Dublintart: 26-35-0367Rsl Assigned At [facility] HospitalDo you feel stress - tense, restless, nervous, or anxious, or unable to sleep at night because yourmind is troubled all the time - these days [OSQ]Not at allNOMS HealthcareSexual OrientationExecutive [facility] Medical Equipment Procedure CodeEquipment CodeEquipment Original TextEquipment IdentifierDates [id number]_expStart: [id number]_bzeWkdcj: 04-12-2020 [id number], [id number] FDAStart: 05-17-2022 Comment on above:Description: Implant time-out completed by intra-procedural staff including this RN, satellite technician, and performing physician. The following was completed. RN reads out loud implant type/size/ expiration date, and verbalizes location. Holds package up to tech to visually verify implant details. Tech reads back package details MD verifies verbally correct implant Time-out was completed for each coil during embolization, if applicable. mg EA, Oral, Refills(s) 0Start: 80-49-3777jm EA, Oral, Refills(s) 0Start: 37-78-2720at EA, Oral, Refills(s) 0Start: 00-41-2847lh EA, Oral, Refills(s) 0 Start: 09-08-2024 Goals DatePatient GoalDesired Activity/StatePersonal health goal Functional Status Cdwe[id number] Health Questionnaire 2 item (PHQ- 2) [Reported][id number] Health Questionnaire 2 item (PHQ- 2) [Reported][facility] [id number] score [AUDIT-C]0 02/06/2025 6:07 PM EDT Mychart, GenericNOMS [id number] often do you have a drink containing alcohol?Never 02/06/2025 6:07 PM EDT Mychart, Generic NeverNOMS [id number] statusPatient does not drink 02/06/2025 6:07 PM EDT Mychart, Generic Patient does not drinkBarnes-Jewish West County HospitalCwsjxrpjte33-13-7325Zhw often do you have 6 or more drinks on 1 occasion?Never 02/06/2025 6:07 PM EDT Jerry BurrBarnes-Jewish West County HospitalMiahtikiuz07-10-4995Vfwobmlecu StatusN/AExec[facility] of [place] [id number] StatusN/A[facility]10-10-2024Functional StatusN/A [facility]03-14-2024How difficult have these problems made it for you to do your work, take care of things at home, or get along with other people?Not difficult at all 02/11/2024 10:49 AM EDT Cari Song MA [facility]Tefutvrdyr83-90-6160Bjk you deaf, or do you have serious difficulty hearingNo 01/16/2024 1:01 AM Izzy Kirkland RN No[facility]-17-2024Are you blind, or do you have serious difficulty seeing, even when wearing glassesNo 01/16/2024 1:01 AM Izzy Kirkland [facility]24Do you have serious difficulty walking or climbing stairsNo 01/16/2024 1:01 AM Izzy Kirkland RN [facility]02-17-2024Do you have difficulty dressing or bathingNo 01/16/2024 1:01 AM Izzy Kirkland RN NoOS[facility] CenterGqlukg08-02-1026Eiqlenb of a physical, mental, or emotional condition, do you have difficulty doing errands alone such as visiting a physician's office or shoppingNo 01/16/2024 1:01 AM Izzy Kirkland RN NoOS[facility] CenterJaloih80-84-7417Byppxbb Health Questionnaire 2 item (PHQ-2) [Reported] [facility] Mental Status FyxgCmeoifvxkbLqapgyPdrotahs07-55-9514Sghlzgt of a physical, mental, or emotional condition, do you have serious difficulty concentrating, remembering, or making decisionsNo 01/16/2024 1:01 AM Izzy Kirkland, RN [facility] Clinical Notes 06-14-2021 to 09-27-2025 Note Date & EpaoCsxuZaapaqdl81-44-6296 Hospital Discharge instructions Patient Education 09/27/2025 09:34:42 Prostate Cancer Screening [...] recommendations. In general, screening is recommended if: You are age 50 to 70 and have an average risk for prostate cancer. You should talk with your healthcare provider about your need for screening and how often screening should be done. Because most prostate cancers are slow growing and will not cause , screening in this age group is generally reserved for men who have a 10- to 15-year life expectancy. You are younger than age 50, and you have these risk factors: ?Having a father, brother, or uncle who has been diagnosed with prostate cancer. The risk is higherif your family member's cancer occurred at an early age or if you have multiple family members withprostate cancer at an early age. ?Being a male who is Black or is of [place] or sub-Saharan descent. In general, screening is not recommended if: You are younger than age 40. You are between the ages of 40 and 49 and you have no risk factors. You are 70 years of age or [...] high PSA levels may be caused by: Prostate cancer. An enlarged prostate that is not caused by cancer (benign prostatic hyperplasia, or BPH). This condition is very common in older men. A prostate gland infection (prostatitis) or urinary tract infection. Certain medicines such as male hormones (like [...] you may need more tests, such as: A physical exam to check the size of your prostate gland, if not done as part of screening. Blood and imaging tests. A procedure to remove tissue samples from your prostate gland for testing (biopsy). This is the only way to know for certain if you have prostate cancer. What are the benefits of prostate cancer screening? Screening can help to identify cancer at an early stage, before symptoms start and when the cancer can be treated more easily. There is a small chance that screening [...] Questions to ask your health care provider When should I start prostate cancer screening? What is my risk for prostate cancer? How often do I need screening? What type of screening tests do I need? How do I get my test results? What do my results mean? Do I need treatment? Where to find more information The Canadian Cancer Society: www.cancer.org Canadian Urological Association: www.auanet.org Contact a health care provider if: You have difficulty urinating. You have pain when you urinate or ejaculate. You have blood in your urine or semen. You have pain in your back or in the area of your prostate. Summary Prostate cancer is a common type of cancer in men. The prostate gland is located below the bladder and in front of the rectum. This gland adds fluid to semen during ejaculation. Prostate cancer screening may identify cancer at an early stage, when the cancer can be treated more easily and is less likely to have spread to other areas of the body. The prostate-specific antigen (PSA) test is the recommended screening test for prostate cancer, butit has associated risks. Discuss the risks and benefits of prostate [...] provider. Document Revised: 05/12/2022 Document Reviewed: 05/12/2022 FFWD Patient Education 2023 StyleSaint. Follow Up Care 03/23/2025 08:39:12 With:Clementina James, URL Address: When: Unknown Comments:6 mos [facility] Alexandre 10-29-2025 NotePatient Education Oncology Prostate Cancer Screening Prostate cancer screening is [...] 50, and you have these risk factors: ? Having a father, brother, or uncle who has been diagnosed with prostate cancer. The risk is higher if your family member's cancer occurred at an early age or if you have multiple family members with prostate cancer at an early age. ? Being a male who is Black or [...] Where to find more information ??? The Canadian Cancer Society: www.cancer.org ??? Canadian Urological Association: www.auanet.org Contact a health care provider if: ??? You have difficulty urinating. ??? You have pain when you urinate or ejaculate. ??? You have blood in your urine or semen. ??? You have pain in your back or in the area of your prostate. Summary ??? Prostate cancer is a common type of cancer in men. The prostate gland (more content not included)...[facility]10-22-20[facility] History of Present illness Narrative* Anayeli Arana RN - 09/20/2025 8:00 AM EDT Images from the original note were not included. PREP SHEET FOR LIVER SURGERY & TRANSPLANT HEPATOLOGY CLINIC Patient Name: George Styles ([id number]) Company Truck Driver: Anayeli Arana Transplant Legal Administrator: Christiane Hilario IMMUNOSUPPRESSION & LAB INFORMATION On [...] patient makes follow up appts with Dr. Parker and Rebeca Gutierrez (for the kidney) in [...] Kan MD - 09/20/2025 8:00 AM EDT [facility] TRANSPLANT HEPATOLOGY CLINIC History of Present Illness George Styles is a 55 y.o. male who presents to the [facility] Transplant Hepatology Clinic today for follow-up of [...] Left; Surgeon: Jyoti Bryant MD, PhD; Location: [facility] MAIN OR PLACEMENT NEPHROSTOMY CATHETER PERCUTANEOUS W/ IMAGE GUIDANCE 05/17/2022 Surgeon: Enzo Heart DO; Location: [facility] INTERVENTIONAL RADIOLOGY (VIR) LIVER TRANSPLANT, ORTHOTOPIC N/A 04/12/2020 Laterality: N/A; Surgeon: LU Palma; Location: [facility] SAME DAY SURGERY MAIN OR KIDNEY TRANSPLANT W/O [place] DEE-NI' NEPHRECTOMY N/A 04/12/2020 Laterality: N/A; Surgeon: LU Palma; Location: [facility] SAME DAY SURGERY MAIN OR OTHER [...] by mouth at bedtime. Ergocalciferol 1.25 MG (23081 UT) capsule Take 1 capsule by mouth [...] 0756 BP: 160/78 Pulse: 91 Temp: 98.1 F (36.7 C) Constitutional: Well developed, well nourished male [...] 0.3 09/13/2025 Explant Pathology Pathologic Diagnosis A. [place] liver, orthotopic liver transplant resection (1458 gram): [...] Assessment In summary, George Styles is a 55 y.o.male with a [...] 1 year. Patient was staffed with attending client support administrator Dr. Parker. Ophelia Kan MD Transplant Hepatology Fellow, PGY 6 Division of Gastroenterology, Hepatology & Nutrition Department of Internal Medicine [facility] Pager [phone] or [phone] Medical Chat with questions * Jimy Suárez RN - 09/20/2025 8:00 AM EDT Images from the original note were not included. Nursing Assessment In Clinic Patient is accompanied to clinic today by: self Did patient require a wheelchair or medical transport for appointment: no Is patient employed: no (Needed for [employer] forms) VITALS BP Readings from Last 3 [...] 8 oz) Body mass index is 32.55 kg/m . Lab Results Component Value Date GLUCOSE 121 [...] mouth every evening. PREFERRED LAB AND PHARMACY: [facility] [address] , [address] [facility] [address] [facility]/pharmacy [facility][id number] [place] [address] [address] [facility] [address] [facility] [address] [facility] [address], [address] [facility] [address] [id number] - [place] [address] - [address] [facility] [address] [facility] [address] ROS and SCREEN: Chest Pain: negative Cough: negative SOB: negative Abd Pain: negative Nausea: negative Vomiting: negative Diarrhea: negative Constipation: negative Dysuria: negative Edema: negative Tremors: negative Headaches: negative Wound issues: negative Any diagnosis of cancer/malignancy (any type) in the last year: no Follow with a Sorter/Assay Tech? yes Have a Primary Care provider? yes Been seen in the last 12 months? yes Alcohol consumption?: no Cigarette smoking, smokeless tobacco or vaping/e-cigarette use?: no Marijuana (any form), CBD oil or street drug use?: no QUESTIONS OR CONCERNS TO ADDRESS WITH PHYSICIAN: * Christiane Parker MD - 09/20/2025 8:00 AM EDT ATTENDING STATEMENT: Patient's history and physical exam reviewed with the fellow. All pertinent laboratory data, imaging and procedures have been reviewed. I have reviewed the fellow's documentation and have made appropriate changes. I agree with the fellow's dictated impression and plan as outlined below. In summary, George Styles is a 55 y.o.male with a [...] IS. Continue labs every 3 months. Christiane Parker MD Supervisor Laboratory Animal Facility of Internal Medicine Division of Gastroenterology, Hepatology, and Nutrition documented in this encounterOur [facility]10-22-2025 Instructions* Patient Instructions* Jimy Suárez RN - 09/20/2025 8:00 AM EDT - Return to clinic in [address] Parker. - Continue checking labs every 3 months. Sent with new standing lab order. - No medication changes documented in this encounterOur [facility] of [facility]10-21-2025 History of Present illness Narrative* Tony Hernandez MD - 09/19/2025 9:30 AM EDT George Styles is a 55 y.o. male No ref. provider found presents with chief complaint of Osteoporosis and Follow-up (12/03 LAB) HPI: IM : 08/2025 Follow-up visit 09/19/2025 for lab calcium 9.2, phosphorus 2.8, magnesium 1.8, he is on Fosamax 70 mg once weekly, vitamin-D 50,000 once weekly. IM : 02/2025 Follow-up visit for 24 hour urine calcium 340 ( 100-300), 24 hour urine creatinine 1600 ( 9131-5763), 24 hour urine sodium 200 ( 40-220) [...] (FOSAMAX) 70 mg, Oral, Every 7 days, TAKE 1 TABLET BY MOUTH EVERY 7 DAYS ON AN EMPTY STOMACH, remain upright for at least 30 MINUTES amLODIPine (NORVASC) 10 mg, Every morning aspirin 81 MG chewable tablet 1 tablet, Daily atorvastatin (LIPITOR) 20 mg, Nightly ergocalciferol (VITAMIN D2) 1.25 mg, Oral, Every 7 days famotidine (PEPCID) 20 mg, Oral, 2 times [...] mg, Daily RT ALLERGIES: Allergies Allergen Reactions Shellfish Protein-Containing Drug Products Swelling Patient with lip and tongue [...] REVIEWED AND NEGATIVE OBJECTIVE: Visit Vitals Pulse 90 Resp 18 Ht 5' 7 Wt 208 lb SpO2 95% BMI 32.58 kg/m Smoking Status Former BSA 2.11 m Physical Exam Constitutional: Appearance: Normal appearance. 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 Organ transplant He is on Prograf and Myfortic Follow up in about 6 months (around 03/20/2026). documented in this encounterBarnes-Jewish West County HospitalHyxsqtzdkw60-54-7248 History of Present illness Narrative* Rebeca Gutierrez APRN-[facility] - 08/11/2025 10:30 AM EDT Images from the original note were not included. George Styles is a 55 y.o. 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 The HLA mismatch was 1A,2B, 1DR. No longer follows with a local farm mechanic. History of Present Illness: Since George was [...] and lab results. Rebeca Gutierrez PhD, RN, RECREATION SUPERINTENDENT- Certified Nurse Practitioner [facility] documented in this encounterOS[facility]09-12-2025 Instructions* Patient Instructions* JEANNA Hess - 08/11/2025 10:30 AM EDT No change in immunosuppression. documented in this encounterOSU [facility]06-30-2025 History of Present illness Narrative* Carmita Lawrence - 05/29/2025 1:53 PM EDT [facility] OP RX OUTREACH ADVANCED: Shipping/Pickup: Patient has affirmed needing a refill of the following medications for Shipment : Med Name: Mycophenolate 360mg Med Name: Tacrolimus 0.5mg Contact Info: Specialty Pharmacy [phone] documented in this encounterOSU [facility]06-12-2025 History of Present illness Narrative* CARI SONG - 05/11/2025 10:00 AM EDT Headaches in the last month or so. 160/101 this morning Has arm cuff BP device * Zuly Bruno NP - 05/11/2025 10:00 AM EDT Images from the original [...] last year: no Specialist: Transplant [facility], Cardiology [facility], Nephrology, Endo HCPOA/Living Will: living will no [...] more refreshed in the morning: not really [employer] that supplies your machine and tubing/filters etc: [...] stones Arteriosclerosis of coronary artery Recently saw [facility] Cardiology Reviewed notes , increased his amlodipine as well as resumed his statin * Zuly Bruno NP - 05/11/2025 6:19 AM EDTAssociated Problem(s): Encounter for subsequent annual wellness visit (AWV) in Medicare patient Reviewed Ht/Wt/BMI Recommend eye exam yearly Recommend dental exams twice a year Balance work/leisure activities Exercises is recommended most days of the week (appropriate as chronic conditions allow) Follow up yearly and prn * Zuly Bruno NP - 05/11/2025 6:19 AM EDTAssociated Problem(s): Obesity (BMI 30-39.9) Discussed with patient their BMI (actual, verses recommended). We have also discussed lifestyle modifications: attempts to perform physical activity as chronic conditions allow, also to monitor dietary intake: increasing protein/fruits/veggies and lowering carb intake (unless contraindicated). Limit sodas, juices, and sugary drinks. * Zuly Bruno NP - 05/11/2025 6:19 AM EDTAssociated Problem(s): Other osteoporosis without current pathological fracture 09/22 DEXA scan is -2.5 osteoprosis Did receive contact back from [facility] regarding treatment, after discussion with them, as well as Dr Verdugo, pt was referred to Endo to help with appropriate treatment plan given his hx of : kidney/liver transplant, as well as kidney stones * Zuly Bruno NP - 05/11/2025 6:18 AM EDTAssociated Problem(s): Gastroesophageal reflux disease Recommendations: freq small meals, nothing to eat or drink at least 2 hours prior to bed, limit caffeine, alcohol, as well as spicy foods Meds to limit or avoid if possible: NSAIDS Elevate HOB if possible Current med: pepcid * Zuly Bruno NP - 05/11/2025 6:18 AM EDTAssociated Problem(s): Hypertension Please check blood pressure daily and record DASH diet Limit caffeine Take medication as directed Contact office if chest pain, pressure, dizziness, shortness of breath, swelling legs Recommend slow position changes Current meds: amlodipine Will order bp cuff * Zuly Bruno NP - 05/11/2025 6:18 AM EDTAssociated Problem(s): Arteriosclerosis of coronary artery Recently saw [facility] Cardiology Reviewed notes , increased his amlodipine as well as resumed his statin * Zuly Bruno NP - 05/11/2025 6:17 AM EDTAssociated Problem(s): Peripheral neuropathy Current medication is gabapentin OARRS reviewed * Zuly Bruno NP - 05/11/2025 6:17 AM EDTAssociated Problem(s): DARLENE (obstructive sleep apnea) You have [...] manages your DARLENE: Martha documented in this encounterNOMS [id number] Instructions* Patient Instructions* Zuly Bruno NP - 05/11/2025 10:00 AM EDT perform physical activity as chronic conditions allow, also to monitor dietary intake: increasing protein/fruits/veggies and lowering carb intake (unless contraindicated). Limit sodas, juices, and sugary drinks. Check blood pressure once daily notify office consistent readings >150/90 documented in this encounterBarnes-Jewish West County HospitalMitufhjera90-38-3160 NotePatient Education Urology Benign Prostatic Hyperplasia Benign prostatic [...] Follow these instructions at home: ??? Take wksh-gys-mjktsfp and prescription medicines only as told by [...] symptoms do not get (more content not included)...[facility]04-23-2025 NoteUT Cardiology - [facility] Subjective George Styles is [...] Neck supple. Skin: G (more content not included)...[facility]04-22-2025 History of Present illness Narrative* Tony Hernandez MD - 03/21/2025 9:40 AM EDT George Styles is a 55 y.o. male No ref. provider found presents with chief complaint of Follow-up and Osteoporosis (LAB) HPI: IM : 02/2025 Follow-up visit for 24 hour urine calcium 340 ( 100-300), 24 hour urine creatinine 1600 ( 6697-6854), 24 hour urine sodium 200 ( 40-220) [...] he is okay with Fosamax, we will start70 mg once weekly, we will check lab in 6 months Organ transplant 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) PTH high but calcium normal more and most likely due to vitamin-D deficiency and he has GFR 58, we will start him 50,000 once a week Vitamin D deficiency - ergocalciferol (Vitamin D-2) 1.25 MG (49279 UT) capsule; Take 1 capsule (1.25 mg) by mouth 1 (one) time per week - Vitamin D 25 hydroxy Total; Future We will check lab before next visit and adjust. Liver transplant status He is on Prograf and Myfortic Follow up in about 6 months (around 09/20/2025). documented in this encounterBarnes-Jewish West County HospitalYgauzjeeuh50-74-5546 History of Present illness Narrative* Tony Hernandez MD - 02/28/2025 9:10 AM EDT George Styles is a 55 y.o. male [...] 02/11/2024 Right nephrolithiasis 02/11/2024 S/P liver transplant ([facility]) Takes dietary supplements Tremor 11/03/2023 Umbilical hernia [...] 3 weeks (around 03/21/2025). documented in this encounterBarnes-Jewish West County HospitalLdnuugsffl17-10-5676 Telephone encounter Note* Telephone Encounter - Cari Song MA - 02/23/2025 1:54 PM EDT Isrrael. My name is George Styles and my number is [phone] need a refill on my fine. [facility] HospitalBqtsihfjhq84-43-6142 Miscellaneous Notes* Telephone Encounter - Cari Song MA - 02/23/2025 1:54 PM EDT Yesourav. My name is George Styles and my number is [phone] need a refill on my fine. documented in this encounterBarnes-Jewish West County HospitalRvcxncynsu27-44-9088 Hospital Discharge instructions Patient Education 01/03/2025 11:17:19 [...] urethra. Follow these instructions at home: Take mbnm-gqp-jkdrjpj and prescription medicines only as told by [...] provider. Document Revised: 06/04/2022 Document Reviewed: 06/04/2022 FFWD Patient Education 2023 [employer]Saint. Follow Up Care 12/27/2024 09:54:21 With:JONATHAN Almodovar APRN, RUMA [place], URL Address: When: Unknown [facility] Alexandre 02-04-2025 NotePatient Education Urology Benign Prostatic Hyperplasia Benign prostatic [...] Follow these instructions at home: ??? Take plmm-chs-hxtprix and prescription medicines only as told by [...] symptoms do not get (more content not included)...[facility]01-27-2025 [place] [address] EGD/Colonoscopy Procedure Signed Patient: George Styles MR#: [id number] 60 : 1970 Acct:[id number] Age/Sex: 54 / M Adm Date: 5 Loc: Room: Type: [facility] Attending Dr: Yoselyn Goins MD Copies to: MD Zuly Perez NP-C~ EGD & Colonoscopy Date/Provider 12/26/2024 Yoselyn Goins MD Colonoscopy Findings: Procedure: Colonoscopy Indication: 54-year-old man with chronic heartburn here for EGD to assess for Forrester's and colonoscopy for evaluation of change in bowel habits Pre-operative diagnosis: Change in bowel habits Post-operative diagnosis: Diverticulosis, internal hemorrhoids Sedation: propofol per anesthesia dept O2 oximetry, hemodynamic monitoring was performed pre, during, and post procedure. Patient was identified, H&P completed, patient was given full explanation of the procedure as well as associatedrisks and written consent wasobtained prior to procedure. Patient expressed complete understanding of the procedure as well as alternatives to the procedure and to anesthesia and agreed to proceed with the procedure as indicated. Patient was immediately reassessed prior to IV sedation. Under IV sedation, patient was placed in the left lateral decubitus position. Digital rectal exam was performed and normal. Colonoscope was inserted and passed proximally to the cecum, which was identified by the ileocecal valve, appendiceal orifice and cecal floor. Colonoscope was slowly withdrawnwith the findings as below. Phoenix bowel prep score was good. Findings: Cecum: Normal. Ascending colon: Normal. Hepatic flexure: Normal. Transverse colon: Normal. Splenic flexure: Normal. Descending colon: Normal. Sigmoid colon: Diverticulosis Rectum: Normal. Retroflexed views: Rectum did show internal hemorrhoids. Biopsy taken: No Complications: None EBL: None Recommendations: -Repeat colonoscopy in 10 years -Regarding constipation can add tablespoon of Metamucil once daily if needed, avoid dehydration, Can add Miralax 17gm PO Qday and titrate up to twice or threetimes daily if needed. Following a period of recovery, patient was seen and given full explanation of the procedure. Patient tolerated the procedure well and will be discharged in satisfactory, stable condition. Yoselyn Goins M.D. EGD Findings: Procedure: EGD Indication: 54-year-old man with chronic heartburn here for EGD to assess for Forrester's and colonoscopy for evaluation of change in bowel habits Pre-operative diagnosis: Chronic heartburn Post-operative diagnosis: Normal EGD Sedation: propofol per anesthesia dept O2 oximetry, hemodynamic monitoring was performed pre, during, and post procedure. Patient was identified, H&P completed, patient was given full explanation of the procedure as well as associatedrisks and written consent wasobtained prior to procedure. Patient expressed complete understanding of the procedure as well as alternatives to the procedure and to anesthesia and agreed to proceed with the procedure as indicated. Patient was immediately reassessed prior to IV sedation. Following IV sedation, patient was placed in the left lateral decubitus position. Bite block was inserted. Endoscope was passed through the mouth, into the esophagus. Endoscope was advanced into the stomach through the pyloricchannel and into the 2nd portion of duodenum by direct visualization. Endoscopewas withdrawn into the stomach and retroflexion was performed. The endoscope was straightened,the stomach was decompressed. Endoscope was withdrawn into the esophagus then completely removed with the findings as below. Findings: DUODENUM: bulb and descending portion appeared normal. STOMACH: pyloric channel, antrum, body, fundus and cardia, including retroflexedviews appear normal. ESOPHAGUS: Diaphragmatic hiatus was 41 cm from incisors and GE junction (upper margin of gastric folds) was at 41 cm from incisors. Squamocolumnar junction was at 41 cm from incisors. Mucosa appearednormal. Biopsy taken: No Complications: None EBL: None Recommendations: -Resume antireflux precautions Following a period of recovery, patient was seen and given full explanation of the procedure. Patient tolerated the procedure well and will be discharged in satisfactory, stable condition. Yoselyn Goins M.D. Documented By: Yoselyn Goins MD 12/26/24 0835 Signed By: 12/26/[address] [facility]01-16-2025 Evaluation note* Author Yoselyn Goins [facility] 2024 [id number] man with a history of liver and kidney transplant in 2019 [...] three times daily if needed. [facility] Work Phone: [phone] Hospital Discharge instructions Patient Education 11/22/2024 09:57:55 [...] if anything looks unusual. Males with a ujxnps-falm-ukkbat risk for skin cancer may want to see a charge entry specialist (social media campaign manager) for an annual body check. Where to find more information [employer] Cancer Society: cancer.org Centers for Disease Control and Prevention: cdc.gov National Cancer Mccool: cancer.gov Contact a health care provider if: [...] provider. Document Revised: 11/24/2023 Document Reviewed: 06/08/2023 FFWD Patient Education 2023 [employer]. 11/22/2024 09:57:51 Erectile Dysfunction Erectile Dysfunction Erectile [...] Follow these instructions at home: Medicines Take aztl-dyg-nobypyh and prescription medicines only as told by [...] provider. Document Revised: 02/12/2022 Document Reviewed: 02/12/2022 FFWD Patient Education 2023 [employer]. 11/22/2024 09:57:50 Benign Prostatic Hyperplasia Benign Prostatic [...] urethra. Follow these instructions at home: Take escy-xcd-cswmael and prescription medicines only as told by [...] provider. Document Revised: 06/04/2022 Document Reviewed: 06/04/2022 FFWD Patient Education 2023 [employer]. Follow Up Care 09/08/2024 14:18:18 With:Clementina James, URL Address: When: Unknown Comments:4 mos [facility] 12-24-2024 NotePatient Education Oncology Cancer Screening [...] if anything looks unusual. Males with a fdaruy-tkjf-hxwifo risk for skin cancer may want to see a charge entry specialist (dermatologi (more content not included)...[facility]12-09-2024 History of Present illness Narrative* Zuly [...] 02/11/2024 Right nephrolithiasis 02/11/2024 S/P liver transplant ([facility]) Takes dietary supplements Tremor 11/03/2023 Umbilical hernia [...] Stable, continues w hepatology documented in this [facility]12-09-2024 Instructions* Patient Instructions* Zuly Bruno NP - 11/07/2024 2:20 PM EST No medication dose changes Recommend cutting back on snacking, goal for 10 pounds weight loss by next visit Exercise as tolerated, most days of the week for approx 30 minutes, treadmill is great option Will reach out again to transplant team about options for osteoporosis documented in this [facility]12-02-2024 History of Present illness Narrative* Gopi Noyola - 10/31/2024 12:18 PM EST [facility] RX OUTREACH ADVANCED: Shipping/Pickup: Patient has affirmed needing a refill of the following medications for Shipment (11/01) : Med Name: Mycophenolate 360mg Med Name: Tacrolimus 0.5mg Contact Info: Specialty ([place]) [phone] [facility] [phone] [facility] [phone] Raheem [phone] Bedside Delivery ([facility]) [phone] documented in this encounterOur [facility] of [facility]10-10-[facility] Hospital Discharge instructions Patient Education 09/08/2024 14:31:14 [...] urethra. Follow these instructions at home: Take qzvt-hqu-cczbzts and prescription medicines only as told by [...] provider. Document Revised: 06/04/2022 Document Reviewed: 06/04/2022 FFWD Patient Education 2023 [employer]. Follow Up Care 08/25/2024 09:38:26 With:Clementina James, URL Address: When:3 months Comments:med increase [facility] 10-07-2024 History of Present illness Narrative* Starla Edwards - 09/05/2024 3:24 PM EDT [facility] RX OUTREACH ADVANCED: Call Information: Date and Time of Contact: 09/05/2024 3:24 PM Method of Contact: By Phone Contact Type: Prescriptions Contactor: Patient Contactee: [facility] OP Shipping/Pickup: Medicare B Refill?: No Medication Name: Mycophenolate, prograf Delivery Method: Ship Delivery Location: Home Signature Required: No Receive/Pickup Date: 09/06/2024 Shipping Address: [address] [place] [address] [address] Contact Info: Specialty ([place]) [phone] [facility] [phone] [facility] [phone] Raheem [phone] Bedside Delivery ([facility]) [phone] documented in this encounterOur [facility] of [facility]09-24-2024 History of Present illness Narrative* Zuly Bruno [...] Follows yearly with Hepatology documented in this encounterBarnes-Jewish [facility] County HospitalQukjnjdsno02-23-5523 Instructions* Patient Instructions* Zuly Bruno NP - 08/23/2024 8:40 AM EDT Labs, referrals to : GI, Urology Tests: bone density test documented in this encounterBarnes-Jewish West County HospitalAwjccurxzq93-57-2540 History of Present illness Narrative* Starla Monteroo - 06/23/2024 8:51 AM EDT [facility] RX OUTREACH ADVANCED: Call Information: Date and Time of Contact: 06/23/2024 8:52 AM Method of Contact: By Phone Contact Type: Prescriptions Contactor: [facility] OP Contactee: Patient Shipping/Pickup: Medicare B Refill?: No Medication Name: Prograf 0.2mg Delivery Method: Ship Delivery Location: Home Signature Required: No Receive/Pickup Date: 06/29/2024 Shipping Address: [address] [place] [address] [address] Contact Info: Specialty ([place]) [phone] [facility] [phone] [facility] [phone] Raheem [phone] Bedside Delivery ([facility]) [phone] documented in this encounterOur Lady of [facility]07-19-2024 History of Present illness Narrative* Daisha Max DO - 06/17/2024 10:00 AM EDT -Referring Provider for today's consult: Self, Self -Primary Care Provider: Zuly Bruno History of Present Illness George Styles is a 54 y.o. male who presents to the OS [...] Left; Surgeon: Jyoti Bryant MD, PhD; Location: [facility] MAIN OR PLACEMENT NEPHROSTOMY CATHETER PERCUTANEOUS W/ IMAGE GUIDANCE 05/17/2022 Surgeon: Enzo Heart DO; Location: [facility] INTERVENTIONAL RADIOLOGY (VIR) LIVER TRANSPLANT, ORTHOTOPIC N/A 04/12/2020 Laterality: N/A; Surgeon: LU Palma; Location: [facility] SAME DAY SURGERY MAIN OR KIDNEY TRANSPLANT W/O [place] DEE-NI' NEPHRECTOMY N/A 04/12/2020 Laterality: N/A; Surgeon: LU Palma; Location: [facility] SAME DAY SURGERY MAIN OR OTHER [...] 0.2 06/13/2024 Explant Pathology Pathologic Diagnosis A. [place] liver, orthotopic liver transplant resection (1458 gram): [...] up in 1 year. Daisha Max DO Supervisor Laboratory Animal Facility Gastroenterology, Hepatology and Nutrition [facility] Pager: [phone] * José Miguel Garnica RN - 06/17/2024 10:00 AM EDT Images from the original note were not included. 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 Company Truck Driver: Anayeli Burt Date of Liver Transplant: 04/13/2020 (Kidney), 04/13/2020 (Liver) 4 years, 2 months post Liver/KidneyTransplant Primary Disease: Hypertensive Nephrosclerosis Transplant User Experience Lead: Erma Roe/ Daisha Max Primary Care physician: [...] LAB AND PHARMACY: None [id number] [place] [address] - [address] [facility] [address] [facility] [id number] [facility] [address] [place] [id number] [facility][id number] [place] [address] [address] [facility] [address] [facility] [address] [facility] [address], [address] [facility] [address] ROS and SCREEN: Chest Pain: negative Cough: [...] year: no Do you follow with a Sorter/Assay Tech? yes Do you have a Primary Care [...] TO ADDRESS WITH PHYSICIAN: documented in this encounterOS[facility] Instructions* Patient Instructions* Ashlee Fair RN - 06/17/2024 10:00 AM EDT - No medication changes from a liver standpoint - A MRI Abdomen has been ordered today. Please call central scheduling at [phone] to schedule or take paper copy to your local hospital - Return to clinic 06/16/2025 [facility]ANS[facility]ANT HEPATOLOGY 3, [facility] as scheduled documented in this encounterOSU [facility]07-19-2024 History of Present illness Narrative* JEANNA Hess - 06/17/2024 9:30 AM EDT Images from the original note were not included. George Styles is a 54 y.o. 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 The HLA mismatch was 1A,2B, 1DR. No longer follows with a local farm mechanic. History of Present Illness: Since George was [...] and lab results. Rebeca Gutierrez MSN, RN, RECREATION SUPERINTENDENT-BC, CCTN Certified Nurse Practitioner [facility] [address] [facility] [address] documented in this encounterOur Lady of [facility]07-19-2024 Instructions* Patient Instructions* JEANNA Hess - 06/17/2024 9:30 AM EDT Tacrolimus - increase to 0.2 mg packet three time per day; goal 3 to 5 ng/dL ; when the itraconazole stops 09/03/2024, reduce to 0.5 mg twice daily. Once your tacrolimus level is 3-5 ng/dL, you may reduce labs to every other week. documented in this encounterOur Lady of Mercy [facility]06-27-2024 History of Present illness Narrative* Destiny Jensen - 05/26/2024 4:33 PM EDT [facility] OUTREACH ADVANCED: Call Information: Date and Time of Contact: 05/26/2024 4:35 PM Method of Contact: By Phone Contact Type: Prescriptions Contactor: [facility] OP Contactee: Patient Contact Outcome: Left message and Follow-up Contact Info: Specialty ([place]) [phone] Jakob [phone] [facility] [phone] Raheem [phone] Bedside Delivery ([facility]) [phone] * Melody Reyez - 05/26/2024 4:33 PM EDT [facility] RX OUTREACH ADVANCED: Call Information: Date and Time of Contact: 05/30/2024 4:52 PM Method of Contact: By Phone Contact Type: Prescriptions Contactor: Patient Contactee: [facility] OP Shipping/Pickup: Medicare B Refill?: No Medication Name: Myco sod 360mg, Prograf 0.2mg Delivery Method: Ship Delivery Location: Home Signature Required: No Receive/Pickup Date: 06/06/2024 Shipping Address: [address] [place] [address] Contact Info: Specialty ([place]) [phone] Jakob [phone] [facility] [phone] Raheem [phone] Bedside Delivery ([facility]) [phone] documented in this encounterOSU [facility]06-14-2024 NoteUT Cardiology - [facility] Subjective George Styles is [...] Disp: , Rfl: t (more content not included)...[facility]04-25-2024 History of Present illness Narrative* Melody Reyez - 03/24/2024 4:12 PM EDT [facility] RX OUTREACH ADVANCED: Call Information: Date and Time of Contact: 03/24/2024 4:14 PM Method of Contact: By Phone Contact Type: Prescriptions Contactor: [facility] Contactee: Patient Contact Outcome: Left message Shipping/Pickup: Medication Name: Prograf 0.2mg pack Contact Info: Specialty ([place]) [phone] [facility] [phone] [facility] [phone] Raheem [phone] Bedside Delivery ([facility]) [phone] * Starla Edwards - 03/24/2024 4:12 PM EDT [facility] RX OUTREACH ADVANCED: Call Information: Date and Time of Contact: 03/28/2024 3:58 PM Method of Contact: By Phone Contact Type: Prescriptions Contactor: [facility] Contactee: Patient Contact Outcome: Left message and Call back later Shipping/Pickup: Medication Name: Mycophenolate, prograf Contact Info: Specialty ([place]) [phone] Jakob [phone] [facility] [phone] Raheem [phone] Bedside Delivery ([facility]) [phone] * Gabbi Rajput - 03/24/2024 4:12 PM EDT [facility] RX OUTREACH ADVANCED: Call Information: Method of Contact: By Phone Contact Type: Prescriptions Contactor: Patient Contactee: [facility] Shipping/Pickup: Medicare B Refill?: No Medication Name: Mycopheolate 360mg and Prograf Delivery Method: Ship Delivery Location: Home Signature Required: No Receive/Pickup Date: 04/04/2024 Shipping Address: [address] [place] [address] [address] Contact Info: Specialty ([place]) [phone] Jakob [phone] [facility] [phone] Raheem [phone] Bedside Delivery ([facility]) [phone] documented in this encounterOur Lady of [facility]04-25-2024 History of Present illness Narrative* Melody Reyez - 03/24/2024 4:12 PM EDT [facility] RX OUTREACH ADVANCED: Call Information: Date and Time of Contact: 03/24/2024 4:14 PM Method of Contact: By Phone Contact Type: Prescriptions Contactor: [facility] Contactee: Patient Contact Outcome: Left message Shipping/Pickup: Medication Name: Prograf 0.2mg pack Contact Info: Specialty ([place]) [phone] Jakob [phone] [facility] [phone] Raheem [phone] Bedside Delivery ([facility]) [phone] * Starla Edwards - 03/24/2024 4:12 PM EDT [facility] RX OUTREACH ADVANCED: Call Information: Date and Time of Contact: 03/28/2024 3:58 PM Method of Contact: By Phone Contact Type: Prescriptions Contactor: [facility] OP Contactee: Patient Contact Outcome: Left message and Call back later Shipping/Pickup: Medication Name: Mycophenolate, prograf Contact Info: Specialty ([place]) [phone] [facility] [phone] [facility] [phone] Raheem [phone] Bedside Delivery ([facility]) [phone] * Gabbi Rajput - 03/24/2024 4:12 PM EDT [facility] RX OUTREACH ADVANCED: Call Information: Method of Contact: By Phone Contact Type: Prescriptions Contactor: Patient Contactee: [facility] Shipping/Pickup: Medicare B Refill?: No Medication Name: Mycopheolate 360mg and Prograf Delivery Method: Ship Delivery Location: Home Signature Required: No Receive/Pickup Date: 04/04/2024 Shipping Address: [address] [place] [address] [address] Contact Info: Specialty ([place]) [phone] [facility] [phone] [facility] [phone] Raheem [phone] Bedside Delivery ([facility]) [phone] * Meka Munoz [facility] - 03/24/2024 4:12 PM [...] Within normal limits Contact Info: Specialty ([place]) [phone] Jakob [phone] [facility] [phone] Raheem [phone] Bedside Delivery ([facility]) [phone] documented in this encounterOur Lady of [facility]04-03-2024 History of Present illness Narrative* Mckenna Stuart [...] del of broth Contact Info: Specialty ([place]) [phone] Jakob [phone] [facility] [phone] Raheem [phone] Bedside Delivery ([facility]) [phone] * Andressa Gutiérrez - 03/02/2024 8:14 AM EDT [facility] RX OUTREACH ADVANCED: Call Information: Date and Time of Contact: 03/02/2024 3:49 PM Method of Contact: By Phone Contact Type: Prescriptions Contactor: [facility] OP Contactee: Patient Contact Outcome: Left message and Follow-up Shipping/Pickup: Medication Name: Myco 360mg and Prograf 0.2mg Contact Info: Specialty ([place]) [phone] [facility] [phone] [facility] [phone] Raheem [phone] Bedside Delivery ([facility]) [phone] * Mckenna Stuart - 03/02/2024 8:14 AM EDT [facility] RX OUTREACH ADVANCED: Call Information: Date and Time of Contact: 03/02/2024 4:08 PM Method of Contact: By Phone Contact Type: Prescriptions Contactor: [facility] OP Contactee: Patient Shipping/Pickup: Medicare B Refill?: No Medication Name: Myco 360 / prograf 0.2 Delivery Method: Ship Delivery Location: Home Signature Required: No Receive/Pickup Date: 03/03/2024 Shipping Address: [address] [place] [address] Contact Info: Specialty ([place]) [phone] [facility] [phone] [facility] [phone] Raheem [phone] Bedside Delivery ([facility]) [phone] documented in this encounterOur Lady of [facility]03-29-2024 History of Present illness Narrative* Marsha Mckeon RN - 02/26/2024 9:30 AM EDT Patient Education Patient education regarding the following topic(s) was provided on 02/26/2024: plan of care . Labs today Follow up with Dr. Almaguer as needed. Those in attendance for the education included: patient. Barriers in providing the education included: none. The following methods were used in providing the education: explanation. [facility] handouts given included: After visit summary. The [...] presents to the HF Clinic at the [facility] on 02/26/2024 for initial evaluation of heart [...] Left; Surgeon: Jyoti Bryant MD, PhD; Location: [facility] MAIN OR PLACEMENT NEPHROSTOMY CATHETER PERCUTANEOUS W/ IMAGE GUIDANCE 05/17/2022 Surgeon: Enzo Heart DO; Location: [facility] INTERVENTIONAL RADIOLOGY (VIR) LIVER TRANSPLANT, ORTHOTOPIC N/A 04/12/2020 Laterality: N/A; Surgeon: LU Palma; Location: [facility] SAME DAY SURGERY MAIN OR KIDNEY [...] Antithrombotic: no Statin: no ICD: NA SUPERVISOR CELLARS: NA CV Test results: ECHOCARDIOGRAM 01/18/2024 (Final) [...] will be BP control. Candie Almaguer M.D. sheet metal journeyman Advanced Heart Failure Program Division of Cardiovascular Medicine [facility] [email or web address] [phone] fax [phone] documented in this encounterOSU [facility]03-29-2024 Instructions* Patient Instructions* Marsha Mckeon RN - 02/26/2024 9:30 AM EDT The following instructions were given today: Labs today Follow up with Dr. Almaguer as needed. Your after visit summary (AVS) is viewable in [facility]. Call RN if you have cardiac questions/concerns M-F 8 to 4:30 ; office # [phone], option 6, then option 2. Guidelines for home management: 1. Continue to monitor weight first thing each morning. 2. Report to the CHF CLINIC ([phone]) any significant weight change. Remember that weight [...] to have labs/tests run outside of the [facility] and you do not hear from us1-2 days after they are performed, you must call us to ensure we received the results. Office fax #[phone]. No news does not necessarily mean that your tests are normal, it could mean we did not get the results. For questions/updates: please provide your name with spelling, date of and question or update All calls are prioritized and responses researched, if possible, prior to calls being returned. Call Scheduling for any appointment/procedure verification or changes [phone], option 7 or [facility] at [phone], option 1. documented in this encounterOSMercy Health Tiffin [facility]02-24-2024 Nurse Note* Nursing Notes - Terra [...] understanding on picking up needed prescriptions at [facility] as listed on discharge summary. Patient denies any unanswered questions at this time. Patient has been discharged with all of their belongings, transported via wheelchair on oxygen to front entrance for brother to transport home on home oxygen supply. [facility]02-24-2024 Miscellaneous Notes* Nursing Notes - Terra Heart [...] understanding on picking up needed prescriptions at [facility] as listed on discharge summary. Patient [...] - 01/22/2024 1:34 PM EST George Styles ([id number]) PRE OPERATIVE DIAGNOSIS High output congestive heart failure [I50.83] POST OPERATIVE DIAGNOSIS Post-Op Diagnosis Codes: * High output congestive heart failure [I50.83] PROCEDURE PERFORMED Procedure(s) (LRB): LIGATION ANGIOACCESS AVF (Left) Resection of large aneurysmic vein PRIMARY CLOSURE Yes INTRAOPERATIVE FINDINGS No significant abnormalities SURGEON Surgeons and Role: * Jyoti Bryant MD, PhD - Primary ANESTHESIOLOGIST Anesthesiologist: Celena Tiwari MD; Kehinde Gutierrez MD SENIOR RESERVATIONS AGENT: Raheem Jasso APRN-SENIOR RESERVATIONS AGENT Boat Engines Installer Assisting: Mini Khan MD SURGICAL STAFF It Business Systems Analyst: Zoila Lawrence RN Relief It Business Systems Analyst: Marimar Saravia RN Relief Scrub: Briseyda [...] patent, patient breathing easily. Report received from medical surgical tech and report received from anesthesiology. Pt [...] Axillary block. SURGEON(S): Jyoti Bryant MD, PHD VENEER CLIPPER: Mynor Fall MD ESTIMATED BLOOD LOSS: Minimal. [...] Jyoti Bryant MD, PHD ATTENDING AR/MedFlorencio JOB: [id number] DOC: [id number] * Plan of Care - Tati Ahmadi [...] rest, 95-96% when talking/moving. Paulette Cordon, RN * Nursing Notes - Tati Charles RN - 01/19/2024 12:10 AM EST Paged overnight coverage, Jasper Gastelum MD, via pager #[phone] Pt- George Styles. Smith 1082. TM1. Was wondering if he can have his Melatonin order increased to 6mg. Per pt, he usually takes 8mg at home. -SAMI Duffy #[phone] Tati Charles RN * Plan of Care - Arelis Mera MD - 01/16/2024 7:27 AM EST Internal Medicine Daily Progress Note Patient: George Styles, 1970, [id number] Physician: Arelis Mera MD, PGY3, Pager #[phone], TM1 service Assessment/Plan: George Styles is a [...] home amlodipine 5mg CAD: non-obstructive CAD on [facility] 2018. - continue home aspirin 81mg [...] AM EST Mr. Styles was admitted to [address] [place] [address]. On admission to R10, from outside facility a dual RN initial assessment of skin condition was performed by Izzy Gutierrez RN and Leroy Singleton RN. Skin Assessment: Skin within defined limits:Yes Jose Score: 20 Wound Vision Port Cdl A Driver images obtained: No LDA Added: No Based [...] nurses station when available. documented in this encounterOSMercy Health [facility]02-24-2024 Nurse Note* Nursing Notes - Terra [...] at 4L of oxygen is also required.) [facility]02-24-[facility] History of Present illness Narrative* Leonel Harris [...] mg Oral Daily Kelvin Smith MD, MBBS journalism professor Transplant nephrology * Leonel Harris DO [...] monitor Leonel Harris DO General Surgery Pager [phone] * Girish Salvador RN - 01/22/2024 3:14 PM EST CM went to bedside to talk with patient. Patient states he has home oxygen through [employer]. He uses 2.5 LNC around the clock. Patient states his brother will bring a tank for discharge. Anticipate patient will discharge tomorrow AM. Brother updated. Girish Oro RN, BSN Clinical Print Inspector Please note that I am a float continuous pillowcase cutter and may not cover the same service every day. Please call the main Case Management office at [phone] for up-to-date coverage. Verified patients identity using [...] length, all questions answered to his satisfaction Leonle Harris DO Associated attestation - Jyoti Bryant [...] Daily Progress Note Patient: George Styles, 1970, [id number] Physician: Yury Ozuna MD, PGY1, Pager #[phone], NP7 service Assessment/Plan: George Styles is a 53 [...] home amlodipine 5mg CAD: non-obstructive CAD on [facility] 2018. - continue home aspirin 81mg [...] agreed with the Nutrition plan outlinedin the Salvage Grinder s note. DVT prophylaxis with lovenox Diet DIET HEART HEALTHY - 4 GM SODIUM Disposition: home pending clinical improvement and evaluation Code status is Full Code Discussed with team and attending, Kelvin Smith MD, LU , on rounds. Signed, Yury [...] AVF: Associated attestation - Kelvin Smith MD, LU - 01/21/2024 4:20 PM EST Patient seen and examined at bedside today during multidisciplinary rounds with medicine residents and pharmacy, charts reviewed, laboratory parameters reviewed. Agree with plan of care as mentioned in resident note. Kelvin Smith MD, MBBS journalism professor Transplant nephrology * Kelvin Smith MD, [...] Oral BID AC Kelvin Smith MD, LU journalism professor Transplant nephrology * Yury Ozuna MD - 01/20/2024 9:31 AM EST Images from the original note were not included. Internal Medicine Daily Progress Note Patient: George Styles, 1970, [id number] Physician: Yury Ozuna MD, PGY1, Pager #[phone], JL4 service Assessment/Plan: George Styles is a 53 [...] home amlodipine 5mg CAD: non-obstructive CAD on [facility] 2018. - continue home aspirin 81mg [...] agreed with the Nutrition plan outlinedin the Salvage Grinder s note. DVT prophylaxis with lovenox Diet [...] AVF: Associated attestation - Kelvin Smith MD, LU - 01/21/2024 1:50 PM EST [...] further questions. Name: Heidy Chatman Phone #: [phone] Date/Time: 01/19/2024 12:08 PM Time Spent: 15 minutes Associated attestation - Melania Alarcon RPH - 01/19/2024 12:41 PM EST Department of Pharmacy Admission Medication Reconciliation Note Patient: George Styles Room/Bed: 1082/A I have reviewed the home medication list with the Second Operator. The home medication list status is: complete. All changes to the home medication list have been updated in [facility]. Updated [facility]IN[facility]ER Med List: Prior to Admission Medications Prescriptions [...] with any further questions. Name: Melania Alarcon Lydia Phone #: [phone] Date/Time: 01/19/2024 12:41 PM * Yury Ozuna MD - 01/19/2024 11:10 AM EST Internal Medicine Daily Progress Note Patient: George Styles, 1970, [id number] Physician: Yury Ozuna MD, PGY1, Pager #[phone], TM1 service Assessment/Plan: Acute Hypoxic Respiratory Insufficiency [...] agreed with the Nutrition plan outlinedin the Salvage Grinder s note. DVT prophylaxis with lovenox Diet [...] nasal cannula (01/19/24 0900) Flow (L/min): 2 (01/19/24899) Gen: NAD HENT: [...] mg Oral Daily Kelvin Smith MD, MBBS journalism professor Transplant nephrology * Yury Ozuna MD - 01/18/2024 2:53 PM EST Internal Medicine Daily Progress Note Patient: George Styles, 1970, [id number] Physician: Yury Ozuna MD, PGY1, Pager #[phone], TM1 service Assessment/Plan: Updates: - continued diuresis [...] home amlodipine 5mg CAD: non-obstructive CAD on [facility] 2018. - continue home aspirin 81mg [...] agreed with the Nutrition plan outlinedin the Salvage Grinder s note. DVT prophylaxis with lovenox Diet DIET HEART HEALTHY - 4 GM SODIUM Disposition: home pending clinical improvement and evaluation Code status is Full Code Discussed with team and attending, Kelvin mSith MD, MBBS , on rounds. Signed, Yury [...] in resident note. Kelvin Smith MD, MBBS journalism professor Transplant nephrology * BENJY Syed - 01/18/2024 1:42 PM EST Pt known to transferrer from previous admissions. Provided emotional and spiritual support. Patient shared about: family support, medical course Kennel Hand provided: - Supportive presence - Active listening - Validation of feelings/emotions Patient encouraged to request a transferrer as needed. Chaplains are available in-house 24 hours a day and 7 days a week. For urgent matters in [facility], please page [phone]. If the request is not urgent, please enter a consult. Consults are responded to within 24 hours. Senior Staff Kennel Hand Angie Singh Md, [facility] Kirk [phone] [email or web address] On-call [facility]: yellow pages space salesperson Raheem: 22/06 Pager ,[facility], and Brock Hernandez Pager [phone] 01/18/24 1345 Clinical Encounter Type Visited With Patient Visit Type Introduction Pastoral Time Spent 15 min Referral Other (See Comment) (rounding) Spiritual Assessment Emotional Observation Coping well;Anxiety Hope Observation Specific hope focus Support Observation By Family Interventions Provided Active listening;Supportive presence Facilitated Verbalization of feelings;Identifying support system;Identifying Sources of spiritual well-being Explored Expectations;Treatment decisions Manager Event Education Manager Event Service Available Yes Educated Patient Outcomes Patient [...] interaction. Name: Melania Alarcon RPH Phone #: [phone] Date/Time: 01/18/2024 9:56 AM * Kasandra Hurt [...] Yes Name and Contact information: Gian Styles ([phone]) Would you like to add additional adult [...] Is the patient from a facility or custodial?: No Patient lives with: Alone Living Environment: [...] oxygen?: Yes Oxygen Provider and Contact : Anturis Liter-Flow?: 20/01- Order for oxygen use?: unknown [...] patient on Anticoagulation? : No [id number] [place] [address] - [address] [id number] Calibration Technician Does the patient or procurement representative express financial concerns? : No Employed?: Disabled Coping/Stress Concerns about patient s coping and stress?: No Concerns about patient s caregiver s coping and stress?: No Values and Beliefs Cultural or alevism practices that may impact discharge planning and/or [...] Plan 1. Identified self and role as Print Inspector. 2. Confirmed and updated demographics and treatment team. 3. Print Inspector will continue to follow with medical team for any other additional discharge needs. Kasandra DON RN [facility] [phone] *Please note I am float and work Thursday and Thursday every other week. Please call [phone] for assist in my absence. * Yury Ozuna MD - 01/17/2024 1:57 PM EST Internal Medicine Daily Progress Note Patient: George Styles, 1970, [id number] Physician: Yury Ozuna MD, PGY1, Pager #[phone], CW3 service Assessment/Plan: Updates: - continue diuresis with [...] home amlodipine 5mg CAD: non-obstructive CAD on [facility] 2018. - continue home aspirin 81mg [...] ordered 2D echo. Reese Sage MD, MADISONN Supervisor Laboratory Animal Facility of Clinical Medicine [facility] documented [facility] Plan of care note* Plan [...] Guideline (CPG) Outcome: Progressing Flowsheets (Taken 01/23/2024 0635) Related Risk Factors (Acute Pain): surgery Signs and Symptoms (Acute Pain): verbalization of pain descriptors [facility]02-23-2024 Hospital Discharge instructions* Discharge Instructions* Arelis Mera [...] your doctor for further instructions. 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] POST OPERATIVE DIAGNOSIS Post-Op Diagnosis Codes: * High output congestive heart failure [I50.83] PROCEDURE PERFORMED Procedure(s) (LRB): LIGATION ANGIOACCESS AVF (Left) Resection of large aneurysmic vein PRIMARY CLOSURE Yes INTRAOPERATIVE FINDINGS No significant abnormalities SURGEON Surgeons and Role: * Jyoti Bryant MD, PhD - Primary ANESTHESIOLOGIST Anesthesiologist: Celena Tiwari MD; Kehinde Gutierrez MD SENIOR RESERVATIONS AGENT: Raheem Jasso APRN-SENIOR RESERVATIONS AGENT Boat Engines Installer Assisting: Mini Khan MD SURGICAL STAFF It Business Systems Analyst: Zoila Lawrence RN Relief It Business Systems Analyst: Marimar Saravia RN Relief Scrub: Briseyda Self Scrub Person: Cinda Mai RN Resident Assisting: Leonel Harris DO Fellow: Miki Mcgowan MD, MBBS COMPLICATIONS None ESTIMATED BLOOD LOSS Minimal SPECIMENS No specimen sent * No specimens in log * Jyoti Bryant MD, PhD January 22, 2024 1:34 PM [facility] Work Phone: [phone] Nurse Note* Nursing Notes - Justin Almendarez RN - 01/22/2024 1:24 PM EST Arrived to PACU assisted by anesthesiology. Connected to monitors. Turned side to side, OR linens removed, repositioned. Airway patent, patient breathing easily. Report received from medical surgical tech and report received from anesthesiology. Pt arrived awake. VSS. Sats slightly low. Pulm rehab used. Sats currently 3lpm @ 93%. Pt states he uses CPAP nocturnally. A&Ox4. Nerve block left arm, elevated. [facility]02-23-2024 Surgery Postoperative evaluation and management note* Op [...] Axillary block. SURGEON(S): Jyoti Bryant MD, PHD VENEER CLIPPER: Mynor Fall MD ESTIMATED BLOOD LOSS: Minimal. [...] Jyoti Bryant MD, PHD ATTENDING AR/Constanza JOB: [id number] DOC: [id number] [facility]02-23-2024 Plan of care note* Plan of [...] 1939 Plan Of Care Reviewed With: patient [facility]02-21-2024 Consult note* Starla Morris MD - 01/20/2024 2:15 PM ESTAssociated Order(s): IP CONSULT TO SURGERY - TRANSPLANT (RENAL) Images from the original note were not included. TRANSPLANT SURGERY CONSULT NOTE: Consult: 01/20/2024, 4:03 PM Member Service Specialist: Starla Morris MD Reason for Consult: Requesting Dr Carson Bryant for AVF revision/closure given new onset high output heart failure George Styles is a 53 y.o. male CURRENT HOSPITALIZATION LOS: Admit Date: 01/16/2024 [facility] Hospital LOS: 4 days [...] GUIDANCE 05/17/2022 Surgeon: Enzo Heart DO; Location: [facility] INTERVENTIONAL RADIOLOGY (VIR) LIVER TRANSPLANT, ORTHOTOPIC N/A 04/12/2020 Laterality: N/A; Surgeon: LU Palma; Location: [facility] SAME DAY SURGERY MAIN OR KIDNEY TRANSPLANT W/O [place]OL[place]A DEE-NI' NEPHRECTOMY N/A 04/12/2020 Laterality: N/A; Surgeon: LU Palma; Location: [facility] SAME DAY SURGERY MAIN OR OTHER [...] seen and staffed with Dr. Mcgowan fellow operational meteorologist Thank you, Starla Morris MD Associated attestation - Jyoti Bryant MD, PhD - 01/22/2024 10:54 AM EST I. Jyoti Bryant MD, PhD, have independently seen and examined the patient, reviewed the labs, discussed the patient with the fellow/resident and agree with the note. [facility] Work Phone: 1(264) 848-282602-21-2024 Consult note* Starla Morris MD - 01/20/2024 2:15 PM ESTAssociated Order(s): IP CONSULT TO SURGERY - TRANSPLANT (RENAL) Images from the original note were not included. TRANSPLANT SURGERY CONSULT NOTE: Consult: 01/20/2024, 4:03 PM Member Service Specialist: Starla Morris MD Reason for Consult: Requesting Dr Carson Bryant for AVF revision/closure given new onset high output heart failure George Styles is a 53 y.o. male CURRENT HOSPITALIZATION LOS: Admit Date: 01/16/2024 [facility] Hospital LOS: 4 days [...] GUIDANCE 05/17/2022 Surgeon: Enzo Heart DO; Location: [facility] INTERVENTIONAL RADIOLOGY (VIR) LIVER TRANSPLANT, ORTHOTOPIC N/A 04/12/2020 Laterality: N/A; Surgeon: LU Palma; Location: [facility] SAME DAY SURGERY MAIN OR KIDNEY TRANSPLANT W/O [place] DEE-NI' NEPHRECTOMY N/A 04/12/2020 Laterality: N/A; Surgeon: LU Palma; [facility] OR OTHER [...] seen and staffed with Dr. Mcgowan fellow operational meteorologist Thank you, Starla Morris MD Associated attestation [...] Hepatology Consult WebExchange --> IM Consult Serv [facility] --> [facility] Main Hepatology consult service Fellow [...] 04/12/2020 Laterality: N/A; Surgeon: LU Palma; Location: [facility] SAME DAY SURGERY MAIN OR KIDNEY TRANSPLANT W/O [place] DEE-NI' NEPHRECTOMY N/A 04/12/2020 Laterality: N/A; Surgeon: LU Palma; Location: [facility] SAME DAY SURGERY MAIN OR OTHER [...] (order for outpatient) Please SecureChat or Call ([phone]) for any questions. Await attending attestation for final recommendations. Hank Noel MD Division of Gastroenterology, Hepatology, and Nutrition Clinical Fellow, PGY-5 Pager: [phone] For urgent/stat calls or consults 5pm to 7am, please page the on-call GI fellow on [employer]. [facility]--> Internal Medicine--> Gastroenterology, Hepatology, & Nutrition--> 1st Call Fel Alysia For urgent/stat calls or consults 7am to 5pm during the weekend, please page the on-call GI fellow on [employer]. [facility]--> Internal Medicine--> Gastroenterology, Hepatology, & Nutrition--> All Hep & [place]nd Cons Fel Day For follow up questions regarding this patient 7am to 5pm during the weekday, contact the Hepatology consults fellow or CARLOS A on [employer]. [facility]--> Internal Medicine--> Gastroenterology, Hepatology, & [...] Michael Estrada MD, MSc documented in this [facility] Nurse Note* Nursing Notes - Paulette [...] rest, 95-96% when talking/moving. Paulette Cordon RN [facility]02-20-2024 Nurse Note* Nursing Notes - Tati Charles RN - 01/19/2024 12:10 AM EST Paged overnight coverage, Jasper Gastleum MD, via pager #[phone] Pt- George Styles. Smith 1082. TM1. Was wondering if he can have his Melatonin order increased to 6mg. Per pt, he usually takes 8mg at home. -SAMI Duffy #[phone] Tati Charles RN [facility]02-19-2024 Consult note* Hank Noel MD - 01/18/2024 [...] GUIDANCE 05/17/2022 Surgeon: Enzo Heart DO; Location: [facility] INTERVENTIONAL RADIOLOGY (VIR) LIVER TRANSPLANT, ORTHOTOPIC N/A 04/12/2020 Laterality: N/A; Surgeon: LU Palma; Location: [facility] SAME DAY SURGERY MAIN OR KIDNEY TRANSPLANT W/O [place] DEE-NI' NEPHRECTOMY N/A 04/12/2020 Laterality: N/A; Surgeon: LU Palma; Location: [facility] SAME DAY SURGERY MAIN OR OTHER [...] (order for outpatient) Please SecureChat or Call ([phone]) for any questions. Await attending attestation for final recommendations. Hank Noel MD Division of Gastroenterology, Hepatology, and Nutrition Clinical Fellow, PGY-5 Pager: [phone] For urgent/stat calls or consults 5pm to 7am, please page the on-call GI fellow on [employer]. [facility]--> Internal Medicine--> Gastroenterology, Hepatology, & Nutrition--> 1st Call Fel Alysia For urgent/stat calls or consults 7am to 5pm during the weekend, please page the on-call GI fellow on [employer]. [facility]--> Internal Medicine--> Gastroenterology, Hepatology, & Nutrition--> All Hep & [facility] Cons Fel Day For follow up questions regarding this patient 7am to 5pm during the weekday, contact the Hepatology consults fellow or CARLOS A on [employer]. [facility]--> Internal Medicine--> Gastroenterology, Hepatology, & [...] for outpatient) Michael Estrada MD, MSc [facility] Work Phone: 1(674) 678-110602-17-2024 Plan of care note* Plan of Care - Arelis Mera MD - 01/16/2024 7:27 AM EST Internal Medicine Daily Progress Note Patient: George Styles, 1970, [id number] Physician: Arelis Mera MD, PGY3, Pager #[phone], TM1 service Assessment/Plan: George Styles is a [...] home amlodipine 5mg CAD: non-obstructive CAD on [facility] 2018. - continue home aspirin 81mg [...] on rounds. Signed, Arelis Mera MD [facility]02-17-[facility] Nurse Note* Nursing Notes - Izzy Gutierrez RN - 01/16/2024 1:41 AM EST Mr. Styles was admitted to [address] [place] [address]. On admission to 0, from outside facility a dual RN initial assessment of skin condition was performed by Izzy Gutierrez RN and Leroy Singleton RN. Skin Assessment: Skin within defined limits:Yes Jose Score: 20 Wound Vision Port Cdl A Driver images obtained: No LDA Added: No Based [...] room closest to nurses station when available. [facility]02-17-2024 History and physical note* Timothy Joseph MD - 01/16/2024 1:13 AM EST Images from the original note were not included. Internal Medicine Admission History & Physical Patient: George Styles, 1970, [id number] Physician: Timothy Joseph MD, PGY1, Pager #[phone], TM 1 service Date of face to [...] GUIDANCE 05/17/2022 Surgeon: Enzo Heart DO; Location: [facility] INTERVENTIONAL RADIOLOGY (VIR) LIVER TRANSPLANT, ORTHOTOPIC N/A 04/12/2020 Laterality: N/A; Surgeon: LU Palma; Location: [facility] SAME DAY SURGERY MAIN OR KIDNEY TRANSPLANT W/O [place]OL[place] DEE-NI' NEPHRECTOMY N/A 04/12/2020 Laterality: N/A; Surgeon: LU Palma; Location: [facility] SAME DAY SURGERY MAIN OR OTHER [...] itraconazole Fax results to: Dr. White - [phone] Transplant Neph - [phone] Gabapentin 400 MG capsule Sig: Take 1 [...] erythema: Skin: No jaundice or rash Neuro: beef killer 3-7, 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 Strength grossly [...] home amlodipine 5mg CAD: non-obstructive CAD on [facility] 2018. - continue home aspirin 81mg [...] Pierson, Luisa Steven, Renee Freed, Daisha [employer] Truck Driver: José Miguel Garnica All Txt: 04/13/2020 (Kidney), [...] results found for: CYCLOSPORIN , CYCLOSPORIN2 , [id number] , CYCLORAND No results found for: SIROLIMUS [...] request in chart. Reese Sage MD Pager [phone] [facility] History and physical note* Timothy Joseph MD - 01/16/2024 1:13 AM EST Images from the original note were not included. Internal Medicine Admission History & Physical Patient: George Styles, 1970, [id number] Physician: Timothy Joseph MD, PGY1, Pager #[phone], TM 1 service Date of face to [...] GUIDANCE 05/17/2022 Surgeon: Enzo Heart DO; Location: [facility] INTERVENTIONAL RADIOLOGY (VIR) LIVER TRANSPLANT, ORTHOTOPIC N/A 04/12/2020 Laterality: N/A; Surgeon: LU Palma; Location: [facility] SAME DAY SURGERY MAIN OR KIDNEY TRANSPLANT W/O [place] DEE-NI' NEPHRECTOMY N/A 04/12/2020 Laterality: N/A; Surgeon: LU Palma; Location: [facility] SAME DAY SURGERY MAIN OR OTHER [...] itraconazole Fax results to: Dr. White - [phone] Transplant Neph - [phone] Gabapentin 400 MG capsule Sig: Take 1 [...] erythema: Skin: No jaundice or rash Neuro: beef killer 3-7, 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 Strength grossly [...] home amlodipine 5mg CAD: non-obstructive CAD on [facility] 2018. - continue home aspirin 81mg [...] Pierson, Luisa Steven, Renee Freed, Daisha [employer] Truck Driver: José Miguel Garnica All Txt: 04/13/2020 (Kidney), [...] results found for: CYCLOSPORIN , CYCLOSPORIN2 , [id number] , CYCLORAND No results found for: SIROLIMUS [...] request in chart. Reese Sage MD Pager [phone] documented in this encounter[facility] History of Present illness Narrative* [...] Name: Prograf 0.2 MG Contact Info: Specialty ([place]) [phone] [facility] [phone] [facility] [phone] Raheem [phone] Bedside Delivery ([facility]) [phone] * Anne Choudhury - 01/12/2024 3:09 PM EST [facility] OP RX OUTREACH ADVANCED: Call Information: Date and Time of Contact: 01/25/2024 10:23 AM Method of Contact: By Phone Contact Type: Prescriptions Contactor: [facility] OP Contactee: Patient Contact Outcome: Left message (prograf myco) Contact Info: Specialty ([place]) [phone] [facility] [phone] [facility] [phone] [facility] [phone] Bedside Delivery ([facility]) [phone] documented in this encounterOSU [facility]02[facility] History of Present illness Narrative* [...] Name: Prograf 0.2 MG Contact Info: Specialty ([place]) [phone] [facility] [phone] [facility] [phone] Raheem [phone] Bedside Delivery ([facility]) [phone] * Anne Choudhury - 01/12/2024 3:09 PM EST [facility] OP RX OUTREACH ADVANCED: Call Information: Date and Time of Contact: 01/25/2024 10:23 AM Method of Contact: By Phone Contact Type: Prescriptions Contactor: [facility] OP Contactee: Patient Contact Outcome: Left message (prograf myco) Contact Info: Specialty ([place]) [phone] [facility] [phone] [facility] [phone] Raheem [phone] Bedside Delivery ([facility]) [phone] * Anne Choudhury - 01/12/2024 3:09 PM EST [facility] OP RX OUTREACH ADVANCED: Call Information: Date and Time of Contact: 01/27/2024 10:19 AM Method of Contact: By Phone Contact Type: Prescriptions Contactor: [facility] OP Contactee: Patient Contact Outcome: Left message (myco prograf) Contact Info: Specialty ([place]) [phone] [facility] [phone] [facility] [phone] Raheem [phone] Bedside Delivery ([facility]) [phone] documented in this encounterOur [facility] History of Present illness Narrative* Vladislav Mcnally [...] Prograf 0.2 MG Contact Info: Specialty ([place]) [phone] [facility] [phone] [facility] [phone] Raheem [phone] Bedside Delivery ([facility]) [phone] * Anne Choudhury - 01/12/2024 3:09 PM EST [facility] OP RX OUTREACH ADVANCED: Call Information: Date and Time of Contact: 01/25/2024 10:23 AM Method of Contact: By Phone Contact Type: Prescriptions Contactor: [facility] OP Contactee: Patient Contact Outcome: Left message (prograf myco) Contact Info: Specialty ([place]) [phone] [facility] [phone] [facility] [phone] [facility] [phone] Bedside Delivery ([facility]) [phone] * Anne Choudhury - 01/12/2024 3:09 PM EST [facility] OP RX OUTREACH ADVANCED: Call Information: Date and Time of Contact: 01/27/2024 10:19 AM Method of Contact: By Phone Contact Type: Prescriptions Contactor: [facility] OP Contactee: Patient Contact Outcome: Left message (myco prograf) Contact Info: Specialty ([place]) [phone] [facility] [phone] [facility] [phone] [facility] [phone] Bedside Delivery ([facility]) [phone] * Andressa Gutiérrez - 01/12/2024 3:09 PM EST [facility] OP RX OUTREACH ADVANCED: Call Information: Date and Time of Contact: 02/01/2024 3:22 PM Contact Type: Prescriptions Contactor: [facility] OP Contactee: Patient Contact Outcome: Left message Shipping/Pickup: Medication Name: Mycophenolate 360mg and Prograf 0.2mg Pack Contact Info: Specialty ([place]) [phone] [facility] [phone] [facility] [phone] [facility] [phone] Bedside Delivery ([facility]) [phone] documented in this encounterOur [facility] History of Present illness Narrative* Zuly Bruno [...] neurologist wanted to send him to 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 CampusAuthoredJanuary 2024 [id number] man with a history of liver and kidney transplant in 2019 [...] twice or three times daily if needed. [facility] Work Phone: [phone] 185-131411-07-2023 History of Present illness Narrative* Vladislav Mcnally [...] ; Prograf 0.2 MG Contact Info: Specialty ([place]) [phone] [facility] [phone] [facility] [phone] Rhaeem [phone] Bedside Delivery ([facility]) [phone] * Gabbi Rajput - 10/06/2023 9:30 AM EST [facility] OP RX OUTREACH ADVANCED: Call Information: Date and Time of Contact: 10/23/2023 2:00 PM Method of Contact: By Phone Contact Type: Prescriptions Contactor: [facility] OP Contactee: Patient Contact Outcome: Left message and Call back later Shipping/Pickup: Medication Name: Mycophenolate 360mg and Prograf 0.2mg Contact Info: Specialty ([place]) [phone] [facility] [phone] [facility] [phone] Raheem [phone] Bedside Delivery ([facility]) [phone] documented in this encounterU [facility] Miscellaneous Notes* Nursing Notes - Cheyanne Mcdonough RN - 09/11/2023 2:45 PM EDT Pt discharged home with discharge instruction. Reviewed AVS with pt and all question answered. PIV removed. RN got pt medication from outpatient pharmacy and delivered it to pt. Signed Lab script wasgiven to pt by this RN.Pt left will all personal belongings. Pt axox4 Per MD Lubbers, pt is ok to go without oxygen even though pt is on 1L and pt only needs the oxygen during the night. pt will diamond picker his oxygen from [employer] supply, 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 This RN [...] seen ambulating in the velazquez with NEWS CORRESPONDENT. Patient was mildly short of breath on [...] 3:30 AM EDT Messaged Mainor Loomis, via [employer] secure chat, Temp 100.8. His tylenol order [...] short period of time. 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 Episode of [...] 7:30 PM EDT Message Mainor Loomis, via [employer] secure chat, Good evening, just an FYI, [...] short period of time. 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 This morning, [...] 8:[address] Loera here also (dialysis equipment technician) * Nursing Notes - Mary Case RN - 09/02/2023 8:[address] Diaz aware of pt's increased oxygen needs (arrived here on 4L n/c and sats only 91%) on hi flow oxygen at 7L is 94%..... Dr. Diaz asked that pt be put on non rebreather 15L this done and pt. Is now 97% * Plan of Care - oRmana Crow RN - 08/30/2023 10:48 AM EDT [...] EDT Mr. Styles was admitted to 1062 10 [...] station when available. documented in this encounterOSU [facility] History of Present illness Narrative* BENJY Syed - 09/11/2023 2:30 PM EDT Provided follow-up emotional and spiritual support. Patient shared about rosemary of discharge and looking forward to seeing family Kennel Hand provided: - Supportive presence - Active listening - Validation of feelings/emotions Patient encouraged to request a transferrer as needed. Chaplains are available in-house 24 hours a day and 7 days a week. For urgent matters in [facility], please page [phone]. If the request is not urgent, please enter a consult. Consults are responded to within 24 hours. Senior Staff Kennel Hand Angie Singh Mdiv, [facility] Kirk [phone] [email or web address] 22/06 On-call Kirk: [phone] 22/06 Pager KIKE SNIDER, and Brock Hernandez Pager [phone] 09/11/23 7835 Clinical Encounter Type Visited With Patient Visit Type Follow-up Pastoral Time Spent 15 min Referral Other (See Comment) (rounding) Spiritual Assessment Spiritual Observation Spirituality helpful Emotional Observation Coping well Hope Observation Specific hope focus Support Observation By Family Interventions Provided Active listening;Supportive presence Facilitated Verbalization of feelings Explored Expectations Manager Event Education Manager Event Service Available Yes Educated Patient Plan of [...] patient on 09/11/2023. Dimitrios Gurrola RPh,PharmD Specialty ([place]) [phone] [facility] [phone] [facility] Bedside Delivery [phone] [facility] [phone] [facility] Bed[facility] Delivery [phone] [facility] [phone] 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 2018. - continue home aspirin 81mg [...] 5.05 (H) 11/19/2018 Reese Sage MD, SERA Supervisor Laboratory Animal Facility of Clinical Medicine [facility] * Lora Lawrence RN - 09/10/2023 1:45 PM EDT Images from the original note were not included. Final Discharge Planning and Transportation Final Discharge Planning Discharge Disposition: Home Services at Discharge: Outpatient clinical services (ie: lab draws, transfusions, injectables) (Home Oxygen by [employer]) Selected Continued Care - Admitted Since 08/28/2023 Durable Medical Equipment Coordination complete. Service Provider Selected Services Address Phone Fax Patient Preferred [employer] Durable Medical Equipment [address] [facility] [address] Internal Comment last updated by Lora Lawrence RN 09/10/2023 1334 Correct contact information: [employer] [address] [place] [address] [place] [address] [place] [address] wood strip block floor installer- you do not need to call at discharge, I already notified the company. Addendum [phone] [facility] notified this CM they are out of patient's insurance area and will not be able to service this patient at time of discharge. Provider notified. Addendum 7601 Dr Kelly called [employer] spoke to Lynn and she said they are willing to accept patient if the patient would drive to the [place] office and diamond picker the supplies. Patient [...] Lora Colón RN, MSN, CCM, CMCN Clinical Print Inspector- R10 Transplant #[phone] * Matt Kramer [facility],PharmD - 09/10/2023 11:32 AM EDT Department of [...] dose adjustment Name: Matt Kramer RPh,Frankie Phone: [phone] Date/Time: 09/10/2023 11:33 AM * Lora Lawrence RN - 09/10/2023 11:08 AM EDT This CM sent referral via [employer] for O2 concentrator to 4 agencies Start date today Timer [facility] Addendum 1332 One accepting company reserved in [employer] [address] [place] [address] [place] [address] Lora Colón RN, MSN, CCM, CMCN Clinical Print Inspector- R10 Transplant #[phone] * RHIANNON Birmingham - 09/09/2023 3:18 PM EDT NUTRITION FOLLOW-UP Nutrition Plan of Care: 1. Continue current diet order. 2. No oral supplements warranted at this time. 3. Monitor for significant weight changes. Monitor GI, skin integrity. 4. Monitor and encourage po intakes with goal of average po being 75-100%. 5. ecologist technician to follow. Met with patient today at bedside wearing mask. Current Diet Orders Procedures DIET REGULAR Standing Status: Standing Number of Occurrences: 1 Appetite: good Per doc flow sheet: Date Breakfast Lunch Dinner 09/08 -% 75% -% 10/9 100% 75% 100% 108 100% 100% 100% 10 100% 100% -% 106 -% -% -% Po average over past [...] time. Will continue to monitor. RHIANNON BirminghamR Pager:[phone] * Evan White DO - 09/09/2023 12:28 [...] sign off. Please Epic message or page [phone] with questions. 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 His lower sioux kidney disease was noted to be presumed [...] losartan 50mg BID CAD: non-obstructive CAD on [facility] 2019. - continue home aspirin 81mg [...] to follow. Please Epic message or page [phone] with questions. 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 His lower sioux kidney disease was noted to be presumed [...] losartan 50mg BID CAD: non-obstructive CAD on [facility] 2018. 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 His lower sioux kidney disease was noted to be presumed [...] losartan 50mg BID CAD: non-obstructive CAD on [facility] 2018. - continue home aspirin 81mg [...] 5.05 (H) 11/19/2018 Reese Sage MD, SERA Supervisor Laboratory Animal Facility of Clinical Medicine [facility] * Ann [...] to follow. Please Epic message or page [phone] with questions. Ann Marie Haskins MD PGY-4, [...] he continues to improve. Please message via [employer] secure chat or page with any questions or concerns. Evan White DO Supervisor Laboratory Animal Facility Division of Infectious Disease * Evan White [...] to follow. Please Epic message or page [phone] with questions. Evan White DO Transplant Infectious Diseases * Crow Diaz MD - 09/06/2023 1:02 PM EDT Images from the original note were not included. Pulmonary/Critical Care Medicine Daily Progress Note Reason for Consultation: bronch for infectious workup Requesting Physician: Dr. Sage CURRENT HOSPITALIZATION: Admit Date: 08/28/2023 [facility] Hospital LOS: 9 days [...] and interpreted reviewed the radiographic data in [employer]. 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 His lower sioux kidney disease was noted to be presumed [...] losartan 50mg BID CAD: non-obstructive CAD on [facility] 2018. - continue home aspirin 81mg [...] 5.05 (H) 11/19/2018 Reese Sage MD, MADISONN Supervisor Laboratory Animal Facility of Clinical Medicine [facility] * Crow Diaz MD - 09/05/2023 4:33 PM EDT Images from the original note were not included. Pulmonary/Critical Care Medicine Daily Progress Note Reason for Consultation: bronch for infectious workup Requesting Physician: Dr. Sage CURRENT HOSPITALIZATION: Admit Date: 08/28/2023 [facility] Hospital LOS: 8 days [...] and interpreted reviewed the radiographic data in [employer]. * Fredi Mcfarlane OT - 09/05/2023 2:50 [...] Assessment: Transfer Assessment: Sit to Stand Transfer [place] Level: Sit->Stand: independent Skilled Intervention/Details: Sit->Stand: x1 from EOB, x1 from toilet Stand to Sit Transfer [place] Level: Stand->Sit: independent Skilled Intervention/Details: Stand->Sit: x1 to toilet, x1 to EOB Functional Mobility: Functional Mobility [place] Level: Functional Mobility/Gait: independent Ambulation Distance (Feet): 20 Skilled Intervention/Details - Functional Mobility/Gait: pt performed functional mobility to/from RR w/ no overt LOB Outcome Score(s): CURRENT [facility] Daily Activity Inpatient Short Form Putting on/Taking Off Lower Body Clothin - A Little Assistance Bathin - A Little Assistance Toiletin - A Little Assistance Putting on/Taking Off Upper Body Clothin - No Assistance Groomin - No Assistance Eatin - No Assistance CURRENT [facility] Activity Raw Score: 21 CURRENT -[facility] Activity Functional Limitation/Modifier: 32.79% Currently [...] Acute Physical Therapy Evaluation [facility] score[facility] PRIOR LEVEL AM-PAC Mobility Raw [...] Intact Mobility Assessment: Supine to Sit Mobility [place] Level: Supine->Sit: modified independence Bed Features/Set-up: Supine->Sit: Head of bed elevated Sit to Supine Mobility [place] Level: Sit->Supine: not tested Balance: Sitting Balance [...] environment. Transfer Assessment: Sit to Stand Transfer [place] Level: Sit->Stand: independent Skilled Intervention/Details: Sit->Stand: From EOB x 2 without difficulty. Stand to Sit Transfer [place] Level: Stand->Sit: independent Assistive Device: Stand->Sit: armed chair Skilled Rationale: Verbal cues, Positioning Gait/Functional Mobility: Gait Assessment [place] Level: Gait: stand-by assist Assistive Device: Gait: rollator Ambulation Distance (Feet): 400 Gait Deviations Identified: decreased grace, decreased gait speed Gait Skilled Rationale: verbal, upright posture, increase step length, increase foot clearance Skilled Intervention/Details - Gait: Reasonable foot clearnce without loss of balance but endorsingdyspnea as 6-7/10. 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 His lower sioux kidney disease was noted to be presumed [...] losartan 50mg BID CAD: non-obstructive CAD on [facility] 2018. - continue home aspirin 81mg [...] 5.05 (H) 11/19/2018 Reese Sage MD, MADISONN Supervisor Laboratory Animal Facility of Clinical Medicine [facility] * Evan A Cindy, DO - 09/04/2023 3:25 PM EDT Transplant [...] to follow. Please Epic message or page [phone] with questions. Evan White DO Transplant Infectious Diseases * Evan Kelly MD - 09/04/2023 1:20 PM EDT Images from the original note were not included. Internal Medicine Daily Progress Note Patient: George Styles, 1970, [id number] Physician: Evan Kelly MD, PGY-1, TM1 service [...] combined Liver-kidney transplant on 04/13/20. His lower sioux kidney disease was noted to be presumed [...] losartan 50mg BID CAD: non-obstructive CAD on [facility] 2018. - continue home aspirin 81mg [...] P 450 system Reese Sage MD, SERA Supervisor Laboratory Animal Facility of Clinical Medicine [facility] * Laurel [...] MD, PhD Internal Medicine and Pediatrics PGY-3 [facility] * Laurel Serrano MD, PhD - [...] MD, PhD Internal Medicine and Pediatrics PGY-3 [facility] * Evan White DO - 09/03/2023 3:38 PM EDT Transplant [...] continue tofollow. Please Epic message or page [phone] with questions. Evan White DO Transplant Infectious Diseases * Evan Kelly MD - 09/03/2023 3:33 PM EDT Internal Medicine Daily Progress Note Patient: George Styles, 1970, [id number] Physician: Evan Kelly MD, PGY-1, TM1 service [...] combined Liver-kidney transplant on 04/13/20. His lower sioux kidney disease was noted to be presumed [...] 2/2 renal function CAD: non-obstructive CAD on [facility] 2018. - continue home aspirin 81mg [...] 3 completed shifts: In: 2089 [P.O.:2089] Out: 5 [Urine:1675] No intake/output data recorded. 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 His lower sioux kidney disease was noted to be presumed [...] 2/ renal function CAD: non-obstructive CAD on [facility] 2018. - continue home aspirin 81mg [...] 5.05 (H) 11/19/2018 Reese Sage MD, SERA Supervisor Laboratory Animal Facility of Clinical Medicine [facility] * Lora Lawrence [...] Lora Colón RN, MSN, CCM, CMCN Clinical Print Inspector- R10 Transplant #[phone] * BENJY Syed - 09/02/2023 11:17 AM EDT Made introductory visit with patient. Provided emotional and spiritual support. Patient shared about: - Source of Rosemary: Camping/Fishing/Family - Spirituality/Restorationism Affiliation: raised Holiness - Family Support/history - Experience with illness/hospital course - Hopes for healing/future Kennel Hand provided: - Supportive presence - Active listening - Validation of feelings/emotions - Pledged prayer Patient encouraged to request a transferrer as needed. Chaplains are available in-house 24 hours a day and 7 days a week. For urgent matters in [facility], please page [phone]. If the request is not urgent, please enter a consult. Consults are responded to within 24 hours. Senior Staff Kennel Hand Angie Singh Mdiv, [facility] Kirk [phone] [email or web address] 22/06 On-call Kirk: [phone] 22/06 Pager ,KIKE, and Brock Hernandez Pager [phone] 09/02/23 1112 Clinical Encounter Type Visited With Patient Visit Type Introduction Pastoral Time Spent 15 min Referral Other (See Comment) (rounding) Spiritual Assessment Spiritual Observation Spirituality helpful Emotional Observation Coping well Hope Observation Specific hope focus Support Observation By Family Interventions Provided Active listening;Supportive presence Facilitated Verbalization of feelings Explored Expectations Manager Event Education Manager Event Service Available Yes Educated Patient Outcomes Patient Outcomes Reduced distress Plan of Care Continue Visiting PRN * Cecilia Ceballosmorro, DT - 09/02/2023 8:51 AM EDT NUTRITION RISK SCREENING NOTE Nutrition Plan of Care: 1. Continue current diet order. 2. No oral supplements warranted at this time. 3. Monitor for significant weight changes. Monitor GI and skin integrity. 4. Monitor and encourage po intakes with goal of average po being 100%. 5. ecologist technician to follow. George Styles is a 53 y.o. 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 His lower sioux kidney disease was noted to be presumed hepatorenal syndrome. His post- transplant course was noteworthy for nephrostomy tube (05/17/2022-09/10/2022) due to concern for ureteral stone. He presents as a direct admission for fever, cough, for infectious workup. Pt unavailable and information obtained via chart review Migration Specialist Screening Pt's appetite is good. Pt [...] with meds Food Allergies reviewed:Shellfish Cultural or Restorationism Restrictions/Preferences: None GI: Last Bowel Movement: 09/01/23 [...] time. Will continue to monitor. 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 His lower sioux kidney disease was noted to be presumed [...] 2/2 renal function CAD: non-obstructive CAD on [facility] 2018. - continue home aspirin 81mg [...] as outlined above. Reese Sage MD Pager [phone] * Heidy Chatman - 09/01/2023 2:00 PM [...] further questions. Name: Heidy Chatman Phone #: [phone] Date/Time: 09/01/2023 2:01 PM Time Spent: 15 minutes Associated attestation - Matt Kramer RPh,PharmJenna - 09/01/2023 2:28 PM EDT Department of Pharmacy Admission Medication Reconciliation Note Patient: George Styles Room/Bed: 1062/A I have reviewed the home medication list with the Second Operator. All changes to the home medication list have been updated in IHIS. Updated [facility]ER Med List: Prior to Admission Medications Prescriptions [...] with any further questions. Name: Matt Kramer RP,PharmD Phone #: [phone] Date/Time: 09/01/2023 2:28 PM * Evan White, - 08/31/2023 4:49 PM EDT Transplant Infectious [...] crypto antigen, EBV PCR -follow pending histo, [id number] labs These recommendations were discussed with the primary team. Transplant ID (Team 3) will continue tofollow. Please Epic message or page [phone] with questions. Evan White DO Transplant Infectious Diseases * Evan Kelly MD - 08/31/2023 7:17 AM EDT Internal Medicine Daily Progress Note Patient: George Styles, 1970, [id number] Physician: Evan Kelly MD, PGY-1, TM1 service [...] combined Liver-kidney transplant on 04/13/20. His lower sioux kidney disease was noted to be presumed [...] negative - Urinary histoplasmosis pending - PJP, laine PCR pending - Infectious Disease consulted, appreciate [...] 2/2 renal function CAD: non-obstructive CAD on [facility] 2018. - continue home aspirin 81mg [...] 5.05 (H) 11/19/2018 Reese Sage MD, SERA Supervisor Laboratory Animal Facility of Clinical Medicine [facility] * Kasandra Hurt [...] Yes Name and Contact information: Gian Styles ([phone]) Reviewed and Updated in Demographics? : Yes Outpatient Providers Does patient have a primary care physician? : Yes When was the patient's last PCP visit?: > 30 days Does the patient follow any specialists?: No Reviewed and updated Care Team?: Yes Patient Care Team: Zuly Bruno CNP as PCP - General Environment/Caregivers Is the patient from a facility or custodial?: No Patient lives with: Alone Living Environment: [...] patient on Anticoagulation? : No [id number] [place] [address] - [address] [address] Calibration Technician Does the patient or procurement representative express financial concerns? : No Employed?: Disabled Coping/Stress Concerns about patient s coping and stress?: No Concerns about patient s caregiver s coping and stress?: No Values and Beliefs Cultural or alevism practices that may impact discharge planning and/or [...] Plan 1. Identified self and role as Print Inspector. 2. Confirmed and updated demographics and treatment team. 3. Print Inspector will continue to follow with medical team/pt for any other additional discharge needs. Kasandra DON RN [facility] [phone] *Please note I am float CM and work Thursday and Thursday every other week. Please call [phone] for assist in my absence. * Evan Kelly MD - 08/30/2023 8:38 AM EDT Internal Medicine Daily Progress Note Patient: George Styles, 1970, [id number] Physician: Evan Kelly MD, PGY-1, TM1 service [...] combined Liver-kidney transplant on 04/13/20. His lower sioux kidney disease was noted to be presumed [...] negative - Urinary histoplasmosis pending - PJP, laine PCR pending - Infectious Disease consulted, appreciate [...] 2/2 renal function CAD: non-obstructive CAD on [facility] 2018. 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 His lower sioux kidney disease was noted to be presumed [...] [ ] Urinary histoplasmosis [ ] PJP, laine PCR [ ] Consulted transplant ID- awaiting [...] losartan 50mg BID CAD: non-obstructive CAD on [facility] 2018. - continue home aspirin 81mg daily, atorvastatin 20mg daily Gout: continue home allopurinol 200mg daily BPH: continue home flomax 0.4mg daily DVT PPX: SQH Code Status: Full Code Disposition: Pending clinical course. Anticipate eventual discharge home. Discussed with team and attending, Reese Sage MD, on rounds. Signed, Laurel Serrano MD, PhD documented in this encounterOur Lady of [facility] Hospital Discharge instructions* Discharge Instructions* Laurel Serrano [...] focus on healthy foods. documented in this encounterOur Lady of [facility]cy [facility]10-03-2023 Consult note* Izzy Loera MD - 09/01/2023 12:26 PM EDTAssociated Order(s): IP CONSULT TO PULMONOLOGY Pulmonary Medicine Inpatient Consultation Reason for Consultation: bronch for infectious workup Requesting Physician: Dr. Sage Pulmonary Attending Physician: Dr. Diaz CURRENT HOSPITALIZATION: Admit Date: 08/28/2023 [facility] Hospital LOS: 4 days [...] short period of time. 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 Other histories as documented in the [...] [place] [facility]. REVIEW OF SYSTEMS A [...] GUIDANCE 05/17/2022 Surgeon: Enzo Heart DO; Location: [facility] INTERVENTIONAL RADIOLOGY (VIR) LIVER TRANSPLANT, ORTHOTOPIC N/A 04/12/2020 Laterality: N/A; Surgeon: LU Palma; Location: [facility] SAME DAY SURGERY MAIN OR KIDNEY TRANSPLANT W/O [place] DEE-NI' NEPHRECTOMY N/A 04/12/2020 Laterality: N/A; Surgeon: LU Palma; Location: [facility] SAME DAY SURGERY MAIN OR OTHER [...] Ko MD I can be reached via [employer] secure message (preferred) or Pager #[phone] documented in this encounterU [facility]09[facility] History and physical note* Aric Turner MD - 08/28/2023 6:14 PM EDT Images from the original note were not included. Internal Medicine Admission History & Physical Patient: George Styles, 1970, [id number] Physician: Aric Turner MD, PGY1, Pager #[phone], service Date of face to face patient [...] So he went to see the transplant farm mechanic. He was found elevated Cr and asked [...] Appetite is ok now. Urine is about 8223-0295 ml every day. Stool every day, no [...] 04/12/2020 Laterality: N/A; Surgeon: LU Palma; Location: [facility] SAME DAY SURGERY MAIN OR KIDNEY TRANSPLANT W/O [place]OL[place] DEE-NI' NEPHRECTOMY N/A 04/12/2020 Laterality: N/A; Surgeon: LU Palma; Location: 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 His lower sioux kidney disease was noted to be presumed [...] Urinary histoplasmosis - PJP, candid PCR - Member Service Specialist transplant ID Acute Kidney Injury with [...] losartan 50mg BID CAD: non-obstructive CAD on [facility] 2019. - continue aspirin 81mg daily, [...] Pierson, Luisa Steven, Renee Freed, Daisha Max Company Truck Driver: José Miguel Garnica All Txt: 04/13/2020 (Kidney), [...] results found for: CYCLOSPORIN , CYCLOSPORIN2 , [id number] , CYCLORAND No results found for: SIROLIMUS [...] Rest as above. Reese Sage MD Pager [phone] documented in this encounterOur Lady of Mercy [facility]09-29-2023 History of Present illness Narrative* Rochelle Ribeiro RN - 08/28/2023 2:15 PM EDT Images from the original note were not included. 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 Company Truck Driver: Anayeli Burt Date of Liver Transplant: 04/13/2020 (Kidney), 04/13/2020 (Liver) 3 years 4 months post Liver/Kidney Transplant Primary Disease: Hypertensive Nephrosclerosis Transplant User Experience Lead: Erma Roe/ Daisha Max Primary Care physician: [...] aspirin, and faMOTIdine None Specified Preferred Lab: [facility] Change in lab frequency / new order today: No- continue labs every 3 months Labs needed in clinic today? Yes COORDINATOR NOTES: Per note from Victor Hugo, liver Coordinator on 08/24/23 :Patient seen in [...] every 12 hours. ADDITIONAL INFORMATION: None Specified, [id number] [place] [address] - [address] [facility] [address] [address] [facility] [address], [address] [facility] [address] [id number] [place] [address] [address] [facility] [address] [place] [id number] [facility] [address], [address] [facility] [address] ROS and SCREEN: Chest Pain: negative Cough: [...] EDT I saw George Styles at the [facility] on 08/28/2023. Patient is a 53 y.o. 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 SAME DAY SURGERY MAIN OR KIDNEY TRANSPLANT W/O TOL[place]A DEE-NI' NEPHRECTOMY N/A 04/12/2020 Laterality: N/A; Surgeon: LU Palma; Location: [facility] SAME DAY SURGERY MAIN OR OTHER [...] you have any questions. Steve Munoz MD meat sales and storage manager Division of Nephrology [facility] documented in this encounterOur Lady of [facility]09-29-2023 Instructions* Patient Instructions* Mainor Busby RN - 08/28/2023 2:15 PM EDT - Admission for fevers, cough, and night sweats documented in this [facility]09-20-2023 History of Present illness Narrative* Andressa [...] Required: No Mailing/Pickup Date: 08/25/2023 Shipping Address: [address] [place] [address] [address] Contact Info: Specialty ([place]) [phone] [facility] [phone] [facility] [phone] [place]em [phone] Bedside Delivery ([facility]) [phone] documented in this encounterOur Lady of [facility]cy [facility]07-14-2023 History of Present illness Narrative* Rebeca Gutierrez, 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 - 06/12/2023 3:00 PM EDT Images from the original note were not included. George Styles is a 53 y.o. 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 The HLA mismatch was 1A,2B, 1DR. No longer follows with a local farm mechanic. History of Present Illness: Since George was [...] and lab results. Rebeca Gutierrez MSN, RN, RECREATION SUPERINTENDENT-BC, CCTN Certified Nurse Practitioner [facility] [address] [facility] [address] documented in this encounterOSU [facility]07-14-2023 Instructions* Patient Instructions* JEANNA Hess - 06/12/2023 3:00 PM EDT No change in immunosuppression. documented in this encounterOSU [facility]07-12-2023 History of Present illness Narrative* Anne Choudhury - 06/10/2023 3:16 PM EDT [facility] OUTREACH ADVANCED: Call Information: Method of Contact: By Phone Contact Type: Prescriptions Contactor: [facility] Contactee: Patient Contact Outcome: Left message Shipping/Pickup: Medication Name: Mycophenolate sod 180 mg Contact Info: Specialty ([place]) [phone] Jakob [phone] [facility] [phone] [place] [phone] Bedside Delivery ([facility]) [phone] * Negra Burks - 06/10/2023 3:16 PM EDT [facility]RE[facility] ADVANCED: Call Information: Date and Time of Contact: 06/12/2023 9:43 AM Method of Contact: By Phone Contact Type: Prescriptions Contactor: [facility] Contactee: Patient Contact Outcome: Left message and Follow-up Shipping/Pickup: Medicare B Refill?: No Medication Name: Myco 180 Contact Info: Specialty ([place]) [phone] Jakob [phone] [facility] [phone] [place] [phone] Bedside Delivery ([facility]) [phone] * Mikaela Pierre - 06/10/2023 3:16 PM EDT [facility] ADVANCED: Call Information: Date and Time of Contact: 06/12/2023 10:08 AM Method of Contact: By Phone Contact Type: Prescriptions Contactor: [facility] Contactee: Patient Shipping/Pickup: Medicare B Refill?: No Medication Name: Mycophenolate 180mg DR Delivery Method: Air Delivery Location: Home Signature Required: No Mailing/Pickup Date: 06/17/2023 Shipping Address: [address] [address] Contact Info: Specialty ([place]) [phone] [facility] [phone] [facility] [phone] [place] [phone] Bedside Delivery ([facility]) [phone] documented in this encounterOur Lady of [facility]cy [facility]04-13-2023 History of Present illness Narrative* Anne Choudhury [...] Required: No Mailing/Pickup Date: 03/16/2023 Shipping Address: [address] [facility] [address] Contact Info: Specialty ([place]) [phone] [facility] [phone] [facility] [phone] [place] [phone] Bedside Delivery ([facility]) [phone] * Andressa Gutiérrez - 03/12/2023 10:34 AM [...] No Mailing/Pickup Date: 03/19/2023 Shipping Address: [address] [place] [address] [address] Contact Info: Specialty ([place]) [phone] [facility] [phone] [facility] [phone] [place] [phone] Bedside Delivery ([facility]) [phone] documented in this encounterOSMercy [facility]04-11-2023 History of Present illness Narrative* Vladislav Mcnally - 03/10/2023 11:58 AM EDT [facility]RE[facility] ADVANCED: Call Information: Date and Time of Contact: 03/10/2023 12:00 PM Method of Contact: By Phone Contact Type: Prescriptions Contactor: [facility] Contactee: Patient Contact Outcome: Left message and Call back later Shipping/Pickup: Medication Name: Mycophenolate ; Tacrolimus Contact Info: Specialty ([place]) [phone] [facility] [phone] [facility] [phone] [place] [phone] Bedside Delivery ([facility]) [phone] documented in this encounterOSMercy Health [facility]04-11-2023 History of Present illness Narrative* Vladislav Mcnally - 03/10/2023 11:58 AM EDT [facility] OUTREACH ADVANCED: Call Information: Date and Time of Contact: 03/10/2023 12:00 PM Method of Contact: By Phone Contact Type: Prescriptions Contactor: [facility] Contactee: Patient Contact Outcome: Left message and Call back later Shipping/Pickup: Medication Name: Mycophenolate ; Tacrolimus Contact Info: Specialty ([place]) [phone] [facility] [phone] [facility] [phone] [place] [phone] Bedside Delivery ([facility]) [phone] * Anne Choudhury - 03/10/2023 11:58 AM EDT [facility] OUTREACH ADVANCED: Call Information: Date and Time of Contact: 03/12/2023 10:32 AM Method of Contact: By Phone Contact Type: Prescriptions Contactor: [facility] Contactee: Patient Contact Outcome: Left message Shipping/Pickup: Medication Name: Mycophenolate sodium (MYFORTIC) 180 MG Tab tacrolimus 0.5 mg Contact Info: Specialty ([place]) [phone] [facility] [phone] [facility] [phone] [place] [phone] Bedside Delivery ([facility]) [phone] documented in this encounterOur Lady of [facility]02-17-2023 History of Present illness Narrative* Daisha Max [...] GUIDANCE 05/17/2022 Surgeon: Enzo Heart DO; Location: [facility] INTERVENTIONAL RADIOLOGY (VIR) LIVER TRANSPLANT, ORTHOTOPIC N/A 04/12/2020 Laterality: N/A; Surgeon: LU Palma; Location: [facility] SAME DAY SURGERY MAIN OR KIDNEY TRANSPLANT W/O [place]OL[place] DEE-NI' NEPHRECTOMY N/A 04/12/2020 Laterality: N/A; Surgeon: LU Palma; Location: [facility] SAME DAY SURGERY MAIN OR OTHER [...] 0.3 12/29/2022 Explant Pathology Pathologic Diagnosis A. [place] liver, orthotopic liver transplant resection (1458 gram): [...] with IV contrast (06/27/2022): 1. 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 Daisha Max DO Supervisor Laboratory Animal Facility Gastroenterology, Hepatology and Nutrition [facility] Pager: [phone] * José Miguel Garnica RN - 01/16/2023 9:40 AM EST Images from the original note were not included. 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 ADDITIONAL INFORMATION: None Specified [id number] [place] [address] - [address] [facility] [address] [address] [facility] [place] [facility] [address] [facility], [address] [place] [address] [id number] [place] [address] [address] [facility] [address] [facility] [address] [facility] [address], [address] [place] [address] ROS and SCREEN: Chest Pain: negative Cough: negative SOB: negative Abd Pain: negative Nausea: negative Vomiting: negative Diarrhea: negative Constipation: negative Dysuria: negative Edema: negative Tremors: negative Headaches: negative Wound issues: negative Alcohol consumption: no Cigarette smoking, smokeless tobacco or vaping/e-cigarette use: no Marijuana (any form), CBD oil or street drug use: no QUESTIONS OR CONCERNS TO ADDRESS WITH PHYSICIAN: documented in this encounterOur Lady of [facility]cy [facility]02-17-2023 Instructions* Patient Instructions* José Miguel Garnica RN - 01/16/2023 9:40 AM EST - Labs Every 2 months - Discuss night time urination with your PCP - Schedule Colonoscopy through PCP - Follow up in 1 year documented in this encounterOur Lady of [facility]10-12-2022 History of Present illness Narrative* Ryan Yepez [...] no hydronephrosis. Some reflux up the lower sioux right ureter but good drainage of both transplant and lower sioux ureter to the bladder. Nephrostomy tube was [...] orthotopic (N/A, 04/12/2020); kidney transplant w/o lower sioux nephrecto my (N/A, 04/12/2020); and placement nephrostomy [...] Negative for , diarrhea, constipation Genitourinary: See [place] Neurological: Negative for headaches. Lymph/Heme: Negative for [...] x 4, Normal strength. No edema. Skin: [place], warm, and dry. There are no rashes [...] no hydronephrosis. Some reflux up the lower [place]oux right ureter but good drainage of both transplant and lower sioux ureter to the bladder. Nephrostomy tube was [...] Ryan Yepez MD 09/10/22 documented in this encounterOur Lady of [facility]08-08-2022 History of Present illness Narrative* Tati Langston, DINA - 07/07/2022 2:10 PM EDT Patient is [...] assisted off the table and escorted to principle industrial hygienist where they made a follow up. * [...] have transplant ureter with anastomosis to lower sioux right ureter. Nephrostogram without filling defects and no hydronephrosis. Some reflux up the lower [place] right ureter but good drainage of both transplant and lower sioux ureter to the bladder. Nephrostomy tube was removed without issue. Patient does have some sensation of incomplete bladder emptying and occasional sensation in his right flank. PVR today was 33cc. Will re-evaluate urinary symptoms at next appointment. --continue Flomax --RTC in one month flow flow/PVR/IPSS Patient to call with any additional questions or concerns. Ryan Yepez MD 07/07/22 documented in this encounterOur Lady of [facility]07-29-2022 History of Present illness Narrative* Ryan Yepez [...] orthotopic (N/A, 04/12/2020); kidney transplant w/o lower sioux nephrecto my (N/A, 04/12/2020); and placement nephrostomy [...] Negative for , diarrhea, constipation Genitourinary: See [place] Neurological: Negative for headaches. Lymph/Heme: Negative for [...] x 4, Normal strength. No edema. Skin: [place], warm, and dry. There are no rashes [...] the RLQ in 2019. Nephrostomy tube placed 05/17 due [...] new bag if needed. documented in this encounterU [facility]07-29-2022 History and physical note* Devang Mcgee, DEEP-MANAGEMENT DEPARTMENT CHAIR - 06/27/2022 10:40 AM EDT Patient was evaluated in clinic as a nurse visit. Please refer to Rena Brewster's note. [facility] Work Phone: [phone] History and physical note* JEANNA Padilla - 06/27/2022 10:40 AM EDT Patient was evaluated in clinic as a nurse visit. Please refer to Rena Brewster's note. documented in this encounterOur Lady of [facility]cy [facility]07-29-2022 History of Present illness Narrative* Rena Brewster RN - 06/27/2022 10:40 AM EDT TEACHING REGARDING TX NEPH COMPLETED-NEPH TUBE SITE DRY AND INTACT-CLEAR YELLOW URINE IN THE BAG-INSTRUCTED ABOUT FLUSHING, BAG CHANGING ETC. NUMEROUS QUESTIONS ASKED AND ANSWERED-VERBALIZED UNDERSTANDING documented in this encounterOur Lady of Mercy [facility]07-20-2022 NoteEXAMINATION: CT ABD/PELVIS WO CON HISTORY: UNSPECIFIED [...] or enlargement. KIDNEYS: Marked atrophy of lower sioux kidneys. Transplant right pelvic kidney with percutaneous [...] Electronically authenticated by: MÓNICA JIMENEZ Date: 2022-06-18 13:53[facility]07-14-2022 Instructions* Patient Instructions* Anayeli Christianson RN - 06/12/2022 3:21 PM EDT Do not take apart/disrupt nephrostomy tube system. Call Interventional Radiology and/or on-call transplant nurse [phone] for instruction if need to flush (clot or decreased flow). Take cipro 500mg, one tablet, twice per day for 14 days documented in this encounterU [facility]07-14-2022 History of Present illness Narrative* Roxanne Grimes RN - 06/12/2022 2:15 PM EDT Images from the original note were not included. 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 Percutaneous Neph Tube placed * [...] LAB AND PHARMACY: None Specified [facility] [place] [address] - [address] [facility] [address] [address] [facility] [place] [facility] [address] [facility] [address] [id number] [place] [address] [address] [facility] [address] [facility] [address] [facility] [address], [address] [facility] [address] ROS and SCREEN: Chest Pain: negative Cough: [...] EDT I saw George Styles at the [facility] on 06/12/2022. Patient is a 52 y.o. 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 SAME DAY SURGERY MAIN OR KIDNEY TRANSPLANT W/O [place]OL[place] DEE-NI' NEPHRECTOMY N/A 04/12/2020 Laterality: N/A; Surgeon: LU Palma; Location: [facility] SAME DAY SURGERY MAIN OR OTHER [...] you have any questions. Steve Munoz MD meat sales and storage manager Division of Nephrology [facility] documented in this encounterOSU [facility]07-06-2022 Instructions* Patient Instructions* TATI GROVE - 06/04/2022 11:04 AM EDT Thank you for joining us for your neph tube follow up. We recommend routine exchange every 8-10 weeks. Please reach out at [phone] when it is time to set your next routine exchange. Thank you IR clinic documented in this encounterOSU [facility]07-06-2022 History of Present illness Narrative* Litzy Brice [...] to schedule exchange.Verbalized understanding. documented in this encounterOur Lady of [facility]cy [facility]06-21-2022 Note* Nursing Notes - Leon Cook RN [...] time of his discharge. Leon Cook RN [facility]06-21-2022 Miscellaneous Notes* Nursing Notes - Leon Cook [...] provide teaching before his discharge Leon RN #[id number] Leon Cook RN * Plan of Care [...] - 05/19/2022 12:44 PM EDT Discussed with [facility] re: possible urine culture performed at their facility. However, based on urinalysis completed at that time, which was only notable for hematuria, culture was not performed and sample no longer feasible for culture. Liam Julian MD Internal Medicine/Pediatrics, PGY-3 * Nursing Notes - Carolyn Isaac RN - 05/18/2022 8:03 PM EDT 2002: IHIS message sent to Dr Jutsyn Wen, regarding patient passing a small kidney [...] 4:57 PM EDT At 1530, I text paged Kaitlynn Gomez [...] with questions. Evan Byrd MD Urology, PGY-2 #[id number] * Certification - Nishant Gamez MD - [...] Added:N Kallie Lorenzana RN documented in this encounterOSMercy [facility]06-21-2022 Note* Plan of Care - Leon [...] discharge/transition of care. Outcome: Adequate for Discharge [facility] Note* Nursing Notes - Leon Cook RN - 05/20/2022 2:01 PM EDT Anne Dillard MD R10 [address] [place] Please let's have a clear order on how the nephrostomy site dressing need to be changed when the patient goes home so we provide teaching before his discharge Leon GALLARDO #[id number] Leon Cook RN [facility] History of Present illness Narrative* Yanira Her RPh,PharmD - 05/20/2022 12:01 PM EDT Images from the original note were not included. [facility] Note: [facility] the following [facility] prescription(s): Medication reconciliation was completed with comparison to discharge reconciliation report. The prescription(s) will be delivered to the patient's bedside on 05/20/22. Total cost is $0. Yanira Her RPh,PharmD Specialty ([place]) [phone] [facility] [phone] [facility] [phone] [place] [phone] [place] [phone] Bedside Delivery ([facility]) [phone] * Maxi Pringle MD - 05/19/2022 12:32 PM EDT Attending I saw George Styles at the [facility] on 05/19/2022. I saw and independently [...] Daily Progress Note Patient: George Styles, 1970, [id number] Physician: Liam Julian MD, PGY-3, Pager #[phone], [id number] Subjective/Interval History: No acute events overnight. Passed [...] of ceftriaxone. May be able to discharge hudsonorrow, will need follow-up appointments with Urology, IR and will need to get set up with a 24 hour urine collection test if transplantnephrology still thinks appropriate. Daya (Nunu) Jeff Saldana MD Division of Hospital Medicine Pager [phone] * Maxi Pringle MD - 05/18/2022 7:39 AM EDT Attending I saw George Styles at the [facility] on 05/18/2022. 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 Daya Saldana MD (Peggy) Division of Hospital Medicine Pager [phone] * Nishant Gamez MD - 05/17/2022 8:04 AM EDT Internal Medicine Daily Progress Note Patient: George Styles, 1970, [id number] Physician: Nishant Gamez MD, PGY2, Pager #[phone], [email or web address] Subjective/Interval History: Worsening creatinine this morning with [...] Saldana MD Division of Hospital Medicine Pager [phone] * Maxi Pringle MD - 05/17/2022 7:07 AM EDT Attending I saw George Styles at the [facility] on 05/17/2022. I saw and independently [...] Daily Evan Bennett MD 0.4 mg at 018 Lab Results Component Value Date SODIUM 135 [...] review of chart and discussion withtreatment team, Print Inspector has not identified needs at this [...] EDT Introduced self and role of the transferrer to patient. Provided emotional and spiritual support and the patient responded by sharing their experience and discussed the following: - Spirituality/Restorationism Affiliation: As a kid attended [employer] latter day but not a strong identity now - Family support - pt's brothers live close by [place] provided: - Supportive presence - Active listening - Validation of feelings/emotions Patient encouraged to request a transferrer as needed. Chaplains are available in-house 24 hours a day and 7 days a week. For urgent matters in [facility], please page [phone]. If the request is not urgent, please enter a consult. Consults are responded to within 24 hours. Angie Singh Mdiv, [facility] Transplant [place] [address] [place] [facility] [place] [phone] [email or web address] 22/06 [place] Pager [phone] 22/06 Pager ,BS, and Brock 1500 22/06 [place] Pager [phone] 05/16/22 1129 Clinical Encounter Type Visited With Patient Visit Type Introduction Pastoral Time Spent 15 min Referral Other (See Comment) (Rounding) Spiritual Assessment Spiritual Observation Spirituality helpful;Identifies as (see comment) (Roman Catholic) Emotional Observation Coping well Hope Observation Hopeful and accepting Support Observation By Family Interventions Provided Active listening;Supportive presence Facilitated Verbalization of feelings;Sharing of life story;Identifying support system Explored Expectations Manager Event Education Manager Event Service Available Yes Educated Patient Outcomes Patient Outcomes Articulated purpose/meaning Plan of Care Continue Visiting PRN * Nishant Gamez MD - 05/16/2022 8:27 AM EDT Internal Medicine Daily Progress Note Patient: George Styles, 1970, [id number] Physician: Nishant Gamez MD, PGY2, Pager #[phone], [email or web address] Subjective/Interval History: Overall feeling okay this morning. 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 Objective/Observation: [...] Supervision Transfer Assessment: Sit to Stand Transfer [place] Level: Sit->Stand: independent Skilled Intervention/Details: Sit->Stand: x1 from EOB Stand to Sit Transfer [place] Level: Stand->Sit: supervision Assistive Device: Stand->Sit: armed chair Skilled Rationale: Controlled descent for sitting, Verbal cues Gait/Functional Mobility: Gait Assessment [place] Level: Gait: supervision Assistive Device: Gait: gait belt Gait Distance (feet): 200 Gait Deviations Identified: decreased grace, decreased step length, decreased stride length Gait Skilled Rationale: verbal, upright posture Skilled Intervention/Details - Gait: Pt with steady gait without LOB or complaints of SOB. 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 IADL [...] Assessment: Transfer Assessment: Sit to Stand Transfer [place] Level: Sit->Stand: independent Skilled Rationale: Cues for increased safety Skilled Intervention/Details: Sit->Stand: x1 EOB Stand to Sit Transfer [place] Level: Stand->Sit: supervision Assistive Device: Stand->Sit: gait belt, armed chair Skilled Rationale: Verbal cues, Controlled descent for sitting, Cues for increased safety Skilled Intervention/Details: Stand->Sit: cues for hand placement and controlled descent Functional Mobility: Functional Mobility [place] Level: Functional Mobility/Gait: stand-by assist Assistive Device: [...] by: Mel Norman OT, OTR/L License #: [id number] pager # [phone] 05/20/2022 Upon discontinuation of Acute Care Occupational Therapy Services or patient discharge from the hospital this note represents the current Occupational Therapy Discharge Summary. [facility] course Narrative* Nishant Gamez [...] during his recent hospital stay at [facility]. As you may know, George [...] Saldana MD Division of Hospital Medicine p: [phone] f: [phone] CONSULTS DURING ADMISSION: IP CONSULT TO SURGERY - UROLOGY IP CONSULT TO NEPHROLOGY - TRANSPLANT (MEDICINE) IP CONSULT TO INTERVENTIONAL RADIOLOGY IP CONSULT TO PHYSICAL THERAPY IP CONSULT TO OCCUPATIONAL THERAPY IP CONSULT TO PHARMACY BEDSIDE DISCHARGE MED DELIVERY IMAGING / PROCEDURES / RESULTS: Should you require further information or copies of results or reports please contact Medical Information Management @ [phone] LABS AT TIME OF DISCHARGE: Lab Results [...] AT DISCHARGE: Zuly Kiana [address] [facility] / [place] [address] MEDICATIONS: Discharge Orders CT ABDOMEN/PELVIS WITHOUT CONTRAST [...] CAPS Generic drug: docusate Follow-up: Zuly Bruno, MANAGEMENT DEPARTMENT CHAIR [address] [facility] [address] Schedule an appointment as soon as possible for a visit Follow-up appointment with your, primary care physician within 7-10 days, after discharge. [address] [facility] [address] Follow up The department of urology will call you with a follow up appointment. LU Ovalle [address] 11th Floor [facility] [phone] Follow up Please make a follow up appointment with Dr. Munoz's office. Upcoming Appointments (up to five)-Some appointments for Medical Center outpatient clinics or diagnostic testing locations are not displayed below Provider Department Dept Phone 06/04/2022 10:40 AM IR CLINIC [facility], [facility] Interventional Radiology Clinic [phone] 06/27/2022 1:30 PM [facility] Department of Radiology Arrive at: Arrive to First Floor Registration Desk [phone] 06/27/2022 2:40 PM Ryan Yepez [facility] Arrive at: Arrive to 2nd Floor, Registration [address] 10/31/2022 1:00 PM Steve Munoz [facility] Transplant [facility] [phone] 01/16/2023 9:40 AM TRANSPLANT HEPATOLOGY 3, [facility] Transplant [facility] [phone] Associated attestation - Daya Saldana MD - [...] MD (Peggy) Division of Hospital Medicine Pager [phone] documented in this encounterOSU [facility] Hospital Discharge instructions* Discharge Instr - [...] be changed by Interventional Radiology. Please call [phone] to schedule this appointment and with any questions or concerns you may have regarding the nephrostomy tube. If you have questions or concerns, please call Interventional Radiology at SOMEONE FROM INTERVENTIONAL RADIOLOGY WILL CALL YOU FOR A FOLLOW UP IN THE IR CLINIC Giulia Cavazos RN Nurse Coordinator Interventional Radiology Interventional Radiology Outpatient scheduling documented in this encounterOSU [facility] Note* Plan of Care - [...] Ongoing Goal: Interdisciplinary Rounds/Family Conf Outcome: Ongoing [facility]06-20-2022 Note* Plan of Care - Liam Julian MD - 05/19/2022 12:44 PM EDT Discussed with [facility] re: possible urine culture performed at their facility. However, based on urinalysis completed at that time, which was only notable for hematuria, culture was not performed and sample no longer feasible for culture. Liam Julain MD Internal Medicine/Pediatrics, PGY-3 [facility]06-19-2022 Note* Nursing Notes - Carolyn Isaac RN - 05/18/2022 8:03 PM EDT 2002: IHIS message sent to Dr Justyn Wen, regarding patient passing a small kidney stone, about the size of pea. notified. Stone left in strainer in pt bathroom. 0500: IHIS message sent to Dr Justyn Wen, regarding pt BP 174/77. [facility]06-19-2022 Note* Plan of Care - Mel Hampton [...] outcomes by discharge/transition of care. Outcome: Ongoing [facility]06-19-2022 Note* Plan of Care - Елена Martinez [...] becomes hyponatremic, NS should instead be used. [facility] Work Phone: [phone]) [phone] Note* Nursing Notes - Carolyn Isaac RN - 05/18/2022 4:37 AM EDT IHIS chat sent to Dr Tray Quintana, regarding pt BP 190/86. Pt complaining of pain at site of neph tube. PRN pain medication given per order parameters. Pt denies any other symptoms at this time. notified and aware. [facility]06-18-2022 Note* Nursing Notes - Danitza Thompson RN - 05/17/2022 12:28 PM EDT At 0900, I rounded with Dr. Gamez and Dr. Saldana. At that time I checked Mr. Styles's vital signs. His pulse oximeter was low and he was tachypneic. Verbal order at bedside to put nasal cannula on starting at 2liters oxygen and to provide incentive spirometer. [facility]06-18-2022 Note* Nursing Notes - Meka Rincon RN - 05/17/2022 10:52 AM EDT Interventional Radiology procedure completed with IR Attending Dr. Heart / Dr. Le of percutaneous right nephrostomy tube placement transplant kidney 10.2 Fr Griffin acosta Pt tolerated procedure with moderate sedation local numbing agent . Transported to inpatient after phase I recovery. Post procedure orders in place. [facility]06-17-2022 Note* Nursing Notes - Danitza Thompson RN - 05/16/2022 4:57 PM EDT At 1530, I text paged Kaitlynn Gomez MD that patient has only had 25ml urine output in matias this afternoon. [facility]06-17-2022 Note* Plan of Care - Evan Byrd [...] with questions. Evan Byrd MD Urology, PGY-2 #0506 [facility] Work Phone: [phone]) 361-590606-17-2022 Note* Certification - Nishant Gamez MD - 05/16/2022 11:20 AM EDT I certify that this patient requires inpatient services at this time. I anticipate the expected length of stay will include at least two midnights. Inpatient services are due to the following medicalconcerns Obstructive kidney stone. Plans for post hospitalization care will be discharge to home. [facility]06-17-2022 Consult note* Maria De Jesus Pollock MD, PhD - 05/16/2022 9:37 AM EDTAssociated Order(s): IP CONSULT TO NEPHROLOGY - TRANSPLANT (MEDICINE) I saw George Styles at the [facility] on 05/16/2022. Reason for Consultation: kidney [...] where he was given flomax and senthome. [place] better but noticed more pain and decreased [...] best assessment and recommendations. Maxi Pringle MD [facility] Work Phone: [phone]) 397-879106-17-2022 Consult note* Maria De Jesus Pollock MD, PhD - 05/16/2022 9:37 AM EDTAssociated Order(s): IP CONSULT TO NEPHROLOGY - TRANSPLANT (MEDICINE) I saw George Styles at the [facility] on 05/16/2022. Reason for Consultation: kidney [...] where he was given flomax and senthome. [place] better but noticed more pain and decreased [...] states he went to his local ED [place] and he was put on Flomax and he did improve. Pt states last night he was unable to void with severe right sided abd pain. Pt states nausea and no vomiting or fevers. Pt states he went back to [place] ED at 0100 and they placed a [...] (N/A, 04/12/2020); and kidney transplant w/o lower sioux nephr ectomy (N/A, 04/12/2020). Medications He has [...] 250 05/15/2022 MCV 89.0 05/15/[address] Imaging 05/12/22 and report reviewed. IMPRESSION below should also contain the followin. 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 The lower sioux kidneys are progressively atrophic bilaterally compared to [...] 06/14/2020 are no longer present. The lower sioux distal right ureter is decompressed beyond this [...] surgical history for renal graft and lower sioux right urinary drainage, as a discrete ureteroneocystostomy is not identified, and the graft may be draining via a ureteroureterostomy. Urology consultation recommended. 3. The lower sioux kidneys are bilaterally atrophic, with right renal sinus calcifications consistent with nonobstructing right lower sioux renal calculi up to 6 mm. Normal [...] PGY-3, Department of Urologic Surgery Pager #: [phone] Associated attestation - Ryan Yepez MD - [...] --may continue flomax documented in this encounter[facility]* Plan of Care - Kallie [...] supported Trust Relationship/Rapport: care explained choices provided [facility]06-17-2022 Note* Nursing Notes - Kallie Lorenzana RN - 05/16/2022 2:29 AM EDT On admission to [facility], a dual RN initial assessment of skin condition was performed by Kallie Lorenzana RN and Sheri Arguelles RN. Skin Assessment: WDL Jose Score: 20 LDA Added:N Kallie Lorenzana RN [facility]06-16-2022 Emergency department Note* Karlie Bean RN - 05/15/2022 11:14 PM EDT Report given to Kallie GALLARDO at [facility]06-16-2022 Emergency department Note* Karlie Bean RN - 05/15/2022 11:14 PM EDT Report given to Kallie GALLARDO at [facility] * Nisha Gardiner RN - [...] diagnosed Thursday and was sent home with [facility]. He went back to that ED [...] 04/12/2020 Laterality: N/A; Surgeon: LU Palma; Location: [facility] SAME DAY SURGERY MAIN OR OTHER [...] 173 CREATININE SERUM(!): 2.85 Baseline around 1.4 1737 [...] 05/15/2022 2:15 PM EDT Pt arrives from [facility] with kidney stones. Pt states he had right lower abd pain and right flank pain with blood in his urine since Thursday. Pt states he went to his local ED [place] and[place] was put on Flomax and he did improve. Pt states last night he was unable to void with severe right sided abd pain. Pt states nausea and no vomiting or fevers. Pt states he went back to [place] EDat 0100 and they placed a matias and CT scan completed and multiple kidney stones noted. Pt [facility] ED as he had liver and kidney transplant in 03/2020. documented in this [facility] History and physical note* Evan Bennett MD - 05/15/2022 9:18 PM EDT Internal Medicine Admission History & Physical Patient: George Styles, 1970, [id number] Physician: Evan Bennett MD, PGY1, Pager #[phone], 4 service Date of face to face [...] 04/12/2020 Laterality: N/A; Surgeon: UL Palma; Location: [facility] SAME DAY SURGERY MAIN [...] erythema: Skin: No jaundice or rash Neuro: beef killer 3-7, 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 Strength grossly equal in muscle groups of the bilateral UEsand LEs. Psych: Ox3, appropriate affect and cognition Data Review: WBC/Hgb/Hct/Plts: 15.81/14.6/46.0/250 (05/15 1436) Na/K+/Phos/Mg/Ca: 138/4.6/--/--/-- (05/15 1436) Bun/Creat/Cl/CO2/Glucose: 32/2.85/105/26/141 (06/16 1436) Imaging: O[facility] CT 05/16/22 IMPRESSION: 1. Findings surrounding the liver and involymg the portal vein, branches, and collateral vessels within the upper abdomen are suspected be poststirgical chauges consistent with recent liver transplant. Increasing hypertension cannot be excluded. 2. Mild edema within the transplant renal hilum and mild dilation of the calyces may represent narrowing/partial [id number] ofthe ureter and mild hydronephrosis or sequela [...] Fred Prince MD Division of Hospital Medicine [phone] [facility] Work Phone: 1(864) 289-745806-16-2022 History and physical note* Evan Bennett MD - 05/15/2022 9:18 PM EDT Internal Medicine Admission History & Physical Patient: George Styles, 1970, [id number] Physician: Evan Bennett MD, PGY1, Pager #[phone], GM 4 service Date of face to [...] erythema: Skin: No jaundice or rash Neuro: beef killer 3-7, 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 Strength grossly [...] dilation of the calyces may represent narrowing/partial [id number] ofthe ureter and mild hydronephrosis or sequela [...] Hospital Medicine [phone] documented in this encounterOS[facility]06[facility] Emergency department Note* Nisha Gardiner RN - 05/15/2022 7:02 PM EDT Bladder scan with Dr Villatoro at bedside, 14ml noted [facility] Consult note* Stephanie Tomas MD - [...] states he went to his local ED [place] and he was put on Flomax and he did improve. Pt states last night he was unable to void with severe right sided abd pain. Pt states nausea and no vomiting or fevers. Pt states he went back to [place] ED at 0100 and they placed a [...] (N/A, 04/12/2020); and kidney transplant w/o lower sioux nephr ectomy (N/A, 04/12/2020). 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 The lower sioux kidneys are progressively atrophic bilaterally compared to [...] 06/14/2020 are no longer present. The lower sioux distal right ureter is decompressed beyond this [...] surgical history for renal graft and lower sioux right urinary drainage, as a discrete ureteroneocystostomy is not identified, and the graft may be draining via a ureteroureterostomy. Urology consultation recommended. 3. The lower sioux kidneys are bilaterally atrophic, with right renal sinus calcifications consistent with nonobstructing right lower sioux renal calculi up to 6 mm. Normal [...] PGY-3, Department of Urologic Surgery Pager #: [phone] Associated attestation - Ryan Yepez MD - [...] before surgical intervention --may continue flomax [facility] Work Phone: [phone] Emergency department Note* Nisha Gardiner RN - 05/15/2022 6:[address] Schneider concerning no urine output via matias catheter. [facility]06[facility]16[facility] Physician Emergency department Note* Gian Villatoro MD - 05/15/2022 6:01 PM EDT ED Attending George Feliz Jensen has a past medical history of Acute renal failure, CAD (coronary artery disease), Cirrhosis, Dialysis patient, End stage renal disease (06/01/2018), Essential hypertension, benign, Hepaticencephalopathy, History of blood transfusion, and Liver cirrhosis. Presents with a chief complaint of kidney stone and diagnosed Thursday and was [facility] home [facility]. He went back to that ED [...] plan of care. Gian Villatoro MD 05/15/222003 [facility] Work Phone: [phone]) 280-634206-16-2022 Emergency department Note* Nisha Gardiner RN - 05/15/2022 5:[address] Schneider made aware of only 30 ml urine via matias since arrival to room. [facility]06-16-2022 Physician Emergency department Note* Matt Schneider MD [...] any incorrections. Matt Schneider MD Resident 05/15/222030 [facility] Work Phone: [phone]) 679-173806-16-2022 Emergency department Note* Lynn Rutherford RN - 05/15/2022 2:15 PM EDT Pt arrives from [facility] with kidney stones. Pt states he had right lower abd pain and right flank pain with blood in his urine since Thursday. Pt states he went to his local ED [place] andhe was put on Flomax and he did improve. Pt states last night he was unable to void with severe right sided abd pain. Pt states nausea and no vomiting or fevers. Pt states he went back to [place] EDat 0100 and they placed a matias and CT scan completed and multiple kidney stones noted. Pt sent to [facility] ED as he had liver and kidney transplant in 03/2020. [facility]04-15-2022 History of Present illness Narrative* Miranda Rosales [...] No Mailing/Pickup Date: 03/17/2022 Shipping Address: [address] [place] [address] 179 Contact Info: Specialty ([place]) [phone] Jakob [phone] [facility] [phone] Raheem [phone] Bedside Delivery ([facility]) [phone] documented in this encounterOur [facility] History of Present illness Narrative* Angel Carpio [...] Goal Progress: Satisfactory Contact Info: Specialty ([place]) [phone] Jakob [phone] [facility] [phone] [place] [phone] Bedside Delivery ([facility]) [phone] * Mallika Henderson - 06/14/2021 11:57 AM [...] Home Signature Required: Yes Shipping Address: [address] [place] [address] Contact Info: Specialty ([place]) [phone] Jakob [phone] [facility] [phone] Raheem [phone] Bedside Delivery ([facility]) [phone] documented in this encounterOSU [facility] CenterEvaluation + Plan note Future Appointments Appointment Date:11/22/2024 09:00:00 AM Scheduled Provider:JONATHAN Almodovar APRN, [place] Location:[facility] Appointment Type:URO Office Visit [facility] evaluation + Plan note Future Appointments Appointment Date:03/09/2025 10:20:00 AM Scheduled Provider:JONATHAN Almodovar APRN, [place] X Location:[facility] Appointment Type:URO Office Visit [facility] Evaluation note* Diagnosis FAYE (acute kidney injury)- Primary Acute kidney failure, unspecified Hydronephrosis due to obstruction of ureteral orifice Hydronephrosis due to obstruction of ureteral orifice FAYE (acute kidney injury) Acute kidney failure, unspecified documented [facility] encounter [facility]* Diagnosis Follow-up exam- Primary Unspecified follow-up examination documented in this encounter [facility]* Diagnosis Immunosuppressed status- Primary Unspecified disorder of immune mechanism Kidney replaced by transplant Liver replaced by transplant Abnormal blood chemistry Other abnormal blood chemistry High risk medication use Encounter for long-term (current) use of other medications Aftercare following organ transplant [facility] Attention to nephrostomy- Primary [facility] Diagnosis Other hydronephrosis- Primary [facility] Diagnosis FAYE (acute kidney injury) Acute kidney failure, unspecified [facility] Diagnosis Other hydronephrosis- Primary -donor kidney transplant recipient Kidney replaced by transplant [facility] Diagnosis Other hydronephrosis [facility]* Diagnosis 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) Encounter for screening for malignant neoplasm of prostate Special screening for malignant neoplasm of prostate [facility] Diagnosis Abnormal blood chemistry- Primary Other abnormal blood chemistry Liver transplant recipient Kidney replaced by transplant Immunosuppressed status Unspecified disorder of immune mechanism Aftercare following organ transplant [facility] Diagnosis Kidney replaced by transplant- Primary [facility] Diagnosis Immunosuppressed status- Primary Unspecified disorder of immune mechanism Kidney replaced by transplant Aftercare following organ transplant High risk medication use Encounter for long-term (current) use of other medications Other general symptoms and signs Abnormal blood chemistry Other abnormal blood chemistry Hypertension secondary to other renal disorders [facility] Diagnosis Histoplasmosis- Primary Histoplasmosis, unspecified without [...] Fever, unspecified [facility] Bilateral lower extremity edema- Primary 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) Atherosclerosis 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) Atherosclerosis of aorta Obesity (BMI 30-39.9) DARLENE (obstructive sleep apnea) Obstructive sleep apnea (adult) (pediatric) Tremor Abnormal involuntary movements Immunocompromised (CMS/HCC) Unspecified immunity deficiency Primary hypertension (CMS/HCC) Unspecified essential hypertension Shortness of breath documented in this encounter [facility]* Diagnosis Pleural effusion [...] specified pre-operative examination [facility] Diagnosis Heart failure, diastolic, acute- Primary Acute diastolic heart failure [facility] Diagnosis Liver lesion- Primary Other specified disorders of liver Liver transplant recipient High risk medication use Encounter for long-term (current) use of other medications Therapeutic drug monitoring Encounter for therapeutic drug monitoring Immunocompromised Unspecified immunity deficiency [facility] Diagnosis Kidney replaced by transplant- Primary [facility]* Diagnosis DARLENE (obstructive sleep apnea)- Primary [...] of urinary stream documented in this encounter [facility]* Diagnosis DARLENE (obstructive sleep [...] of urinary stream documented in this encounter [facility]* Diagnosis Primary hypertension (CMS/HCC) Unspecified essential hypertension documented in this encounter [facility]* Diagnosis DARLENE (obstructive sleep [...] of urinary stream documented in this encounter [facility]* Diagnosis DARLENE (obstructive sleep [...] neoplasm of prostate Dysuria Abdominal pain, generalized DRALENE (obstructive sleep apnea) Obstructive sleep apnea (adult) (pediatric) Bilateral lower extremity edema Other constipation Decreased urine stream Slowing of urinary stream Primary hypertension (CMS/HCC)- Primary Unspecified essential hypertension Immunodeficiency, unspecified (CMS/HCC) Liver transplant status (CMS/HCC) Portal hypertension (CMS/HCC) Portal hypertension Obesity (BMI 30-39.9) Other osteoporosis without current pathological fracture (CMS/HCC) Kidney stones Calculus of kidney Other polyneuropathy documented in this encounter [facility]* Diagnosis DARLENE (obstructive sleep apnea)- [...] replaced by transplant documented in this encounter [facility]* Diagnosis DARLENE (obstructive sleep [...] Unspecified essential hypertension documented in this encounter [facility]* Diagnosis DARLENE (obstructive sleep [...] acid level- Primary [facility] [...] replaced by transplant documented in this encounter [facility]* Diagnosis DARLENE (obstructive sleep [...] Liver transplant status documented in this encounter [facility]* Diagnosis DARLENE (obstructive sleep apnea)- [...] patient Other polyneuropathy documented in this encounter [facility]* Diagnosis Onset Date Resolution Status Admit Date Essential hypertension acuteSept2024 8:20amGAD (generalized anxiety disorder)acuteSept2024 8:20amGERD with apnea without esophagitisacuteSept2024 8:20amMorbid obesity due to excess caloriesacuteSept2024 8:20amOSA (obstructive sleep apnea)acuteSept2024 8:20amPeripheral neuropathy acuteSept2024 8:20am [facility] Work Phone: Evaluation note* Diagnosis Kidney replaced by transplant- Primary [facility] Diagnosis DARLENE (obstructive sleep apnea)- Primary Obstructive sleep apnea (adult) (pediatric) Generalized anxiety disorder Class 1 obesity due [...] abnormal glucose Left carotid bruit Mixed hyperlipidemia Prostate cancer screening Special screening [...] annual wellness visit (AWV) in Medicare patient 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 Secondary hyperparathyroidism, non-renal Vitamin D deficiency Liver transplant status (HCC) Other osteoporosis without current pathological fracture Organ transplant Unspecified organ or tissue replaced by transplant [facility] Diagnosis High risk medication use- Primary Encounter for long-term (current) use of other medications Therapeutic drug monitoring Encounter for therapeutic drug monitoring Immunosuppressed status Unspecified disorder of immune mechanism Liver transplant recipient [facility] N[facility] No data available for this section [facility] Discharge instructions Additional [...] NOT operate machinery such as power tools, Senscient mowers, snow blowers, sewing machines, etc. for [...] NOT operate machinery such as power tools, [employer] mowers, snow blowers, sewing machines, etc. for [...] times daily if needed. - Office number [phone]. [facility] Work Phone: Progress note No data available for this section [facility] reason for referral (narrative)* Consultation (Routine) - New RequestSpecialtyDiagnoses / ProceduresReferred By ContactReferred To ContactInterventional Radiology Diagnoses Hydronephrosis due to obstruction of ureteral orifice Daya Saldana MD [address] [place] [address] Referral IDStatusReasonStart DateExpiration DateVisits RequestedVisits [id number] Request6/19/81287 * Radiology (Emergency) - New RequestSpecialtyDiagnoses / ProceduresReferred By ContactReferred To Contact Procedures US RENAL TRANSPLANT SCAN Daya Saldana MD [address] [place] [address] Referral IDStatusReasonStart DateExpiration DateVisits RequestedVisits [id number] Request * Consultation (Routine) - New RequestSpecialtyDiagnoses / ProceduresReferred By ContactReferred To ContactUrology Diagnoses FAYE (acute kidney injury) Ryan Yepez MD [address] [place] [address] [address] [place] [address] Referral IDStatusReasonCamden DateExpiration DateVisits RequestedVisits [id number] Request * MRI/CAT Scan (Routine) - New RequestSpecialtyDiagnoses / ProceduresReferred By ContactReferred To Contact Diagnoses FAYE (acute kidney injury) Procedures CT ABDOMEN/PELVIS WITHOUT CONTRAST CHG CT SCAN,ABDOMENT AND PELVIS,W/O CONTRAST Ryan Yepez MD [address] [place] [address] [address] [place] [address] Referral IDStatusReasonStart DateExpiration DateVisits RequestedVisits [id number] Request * (Routine) - Pending ReviewSpecialtyDiagnoses / ProceduresReferred By Contact Referred To Contact Procedures PLATELET MONITORING PER PROTOCOL Daya Saldana MD [address] [place] [address] Referral IDStatusReasonStart DateExpiration DateVisits RequestedVisits [id number] Review/ * (Routine) - Pending ReviewSpecialtyDiagnoses / ProceduresReferred By Contact Referred To Contact Procedures DVT/VTE RISK ASSESSMENT Daya Saldana MD [address] [place] [phone] Referral IDStatusReasonStart DateExpiration DateVisits RequestedVisits [id number] Review * (Routine)SpecialtyDiagnoses / ProceduresReferred By ContactReferred To Contact Evan Bennett MD [address] [place] [phone] Referral IDStatusReasonStart DateExpiration DateVisits RequestedVisits Authorized * (Routine)SpecialtyDiagnoses / ProceduresReferred By ContactReferred To Contact Evan Bennett MD [address] [place] [phone] Referral IDStatusReasonStart DateExpiration DateVisits RequestedVisits Authorized [facility] for referral (narrative)* Consultation (Routine) - New RequestSpecialtyDiagnoses / ProceduresReferred By ContactReferred To [facility] Hypoxia Reese Sage MD [address] [place] [address] Referral IDStatusReasonStart DateExpiration DateVisits RequestedVisits [id number] Cubxmhf39/ * MRI/CAT Scan (Routine) - New RequestSpecialtyDiagnoses / ProceduresReferred By ContactReferred To Contact Diagnoses Histoplasmosis Procedures CT CHEST WITHOUT CONTRAST CHG DIAGNOSTIC COMPUTED TOMOGRAPHY THORAX W/O Reese Zarate MD [address] [place] [address] Referral IDStatusReasonStart DateExpiration DateVisits RequestedVisits [id number] Ljbmbem58/ * Radiology (Routine) - New RequestSpecialtyDiagnoses / ProceduresReferred By ContactReferred To Contact Procedures US RENAL TRANSPLANT SCAN Steve Munoz MBBS [address] [place] [address] Referral IDStatusReasonStart DateExpiration DateVisits RequestedVisits [id number] Request/ * (Routine) - New RequestSpecialtyDiagnoses / ProceduresReferred By Contact Referred To Contact Procedures PLATELET MONITORING PER PROTOCOL Steve Munoz MBBS [address] [place] [address] Referral IDStatusReasonStart DateExpiration DateVisits RequestedVisits [id number] Request/ * (Routine) - New RequestSpecialtyDiagnoses / ProceduresReferred By Contact Referred To Contact Procedures DVT/VTE RISK ASSESSMENT Steve Munoz MBBS [address] [place] [address] Referral IDStatusReasonStart DateExpiration DateVisits RequestedVisits [id number] Request/ [facility] for referral (narrative)* Consultation (Routine) - Pending ReviewSpecialtyDiagnoses / ProceduresReferred By ContactReferred To ContactUrology Diagnoses Decreased urine stream Procedures RI OFFICE/OUTPATIENT NEW HIGH MDM 60 MINUTES Zuly Bruno NP [address] [place] [address] Trace Gannon MD [address] [facility] [place] [address] Referral IDStatusReasonStart DateExpiration DateVisits RequestedVisits [id number] Review Specialty Services Required / * Consultation (Routine) - Pending ReviewSpecialtyDiagnoses / ProceduresReferred By ContactReferred To ContactGastroenterology Diagnoses Gastroesophageal reflux disease, unspecified whether esophagitis present Abdominal pain, generalized Other constipation Procedures RI OFFICE/OUTPATIENT NEW HIGH MDM 60 MINUTES Zuly Bruno NP [address] [place] [address] Alaina Mclaughlin DO [address] [facility] [address] [place] [address] Referral IDStatusReasonStart DateExpiration DateVisits RequestedVisits [id number] Review Specialty Services Required * (Routine) - AuthorizedSpecialtyDiagnoses / ProceduresReferred By Contact Referred To ContactRadiology Diagnoses Left carotid bruit Mixed hyperlipidemia (CMS/HCC) Procedures Vascular US carotid artery duplex bilateral Zuly Bruno NP [address] [place] [address] Referral IDStatusReasonStart DateExpiration DateVisits RequestedVisits [id number]/24/20243/23/202511 [facility] HealthcareReason for referral (narrative)No reason for referral information available[facility] Work Phone: Instructions * Patient Instructions - Christin Elizabeth APRN-MANAGEMENT DEPARTMENT CHAIR - 10/19/2018 9:21 AM EST You should take an extra dose of the lactulose as needed so that you are having 3-4 bowel movementsdaily. You should start the chemical dependency counseling as soon as possible. If you have questions, call the transplant social work administrator Melania Pierson. in this encounter* Patient Instructions - Sophie Cary RN - 10/12/2018 11:09 AM EST You have been seen in the pre-transplant evaluation clinic by Dr. Restrepo and Sophie Cary. Sophie Cary is your pre-habitat management coordinator she can be reached at [phone] at any time for questions during the pre-transplant process. Your evaluation is complete pendin. Abdominal ultrasound. 2. 6 minute walk test. 3. Cardiology evaluation. Additionally, your plastics spreading machine operator will recommend testing to screen for coronary artery disease. This will be scheduled for you after your cardiology visit. 4. Your coordinator will be requesting record from your last dental visit, colonoscopy and EGD. 5. Please work to complete social work recommendations. Your social work administrator will be contacting you to follow up on your progress. 6. You have also been referred for a kidney transplant. An appointment will be scheduled for you sari evaluated in the kidney transplant clinic after you have satisfied requirements dictated by [employer] company. Once your testing is complete, we [...] ___ Other Name MRN * Christin Elizabeth, 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 - 10/19/2018 9:00 AM EST Formatting of this note may be different from the original. History of Present Illness: Chief Complaint Patient presents with Follow-up Cirrhosis George Styles is a 48 y.o. male who presents to the [facility] Gastroenter[facility] today regarding his diagnosis/chief complaint(s) of Cirrhosis secondary to ETOH, with ESRD follows with Dr. Orr. Currently undergoing evaluation for liver/kidney transplant. Has been seen in transplant clinic for eval. Still undergoing pre testing. Diagnosed in April 2018. Last drink was immediately prior to hospital admission in [place] for ACLF. Hospital course notable for ARF [...] 3. FU 12 weeks. in this encounter* WinonaRafiaMelaniaCRIS - 10/12/2018 10:00 AM EST Formatting of this note may be different from the original. Transplant Recipient Psychosocial Evaluation Demographics: Patient is a 48 y.o., White, Single, male, who presented for a liver and kidney transplant evaluation. Pt was AOx3. Transplant Grapple Operator role/function was explained and reviewed. The patient was informed that the results of this assessment will be shared with the referring provider and the transplant team. The patient verbalized understanding of this information. The [facility] psychosocial assessment consent form has been explained to patient and has been signed. Pt is completing this evaluation with brother (David) in the Outpatient setting. NANCYK educated pt on the benefits of completing/filing advanced directives and resources were offered. Pt identifies with [employer] jew. Pt confirms being a [place] Citizen. [...] has valid license, does not regularly drive ([facility] recommends that he not to [...] related disease etoh cirrohosis April dx in [facility] for thirty days. Pt [...] as well as referred him to pre habitat management coordinator. Pt and support demonstrated moderate [...] Patient's brother David is a self employed forestry contractor. Additional support includes his other brother Tyshawn and his Mary live fifteen minutes away. 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 He confirms being comfortable asking for help. [...] in 2010, he was employed by the [employer]. He has access to SSDI payment (SSDI starts in November) in regards to financial means pre/ post-transplant. Pt confirms (meeting bills currently, ) being able to meet daily needs. Patient's brother asking for additional information on community resources, food stamps and He[employer]. Refer him to pt.'s dialysis center and the [facility]. Hereports access to Medicaid. Pt. denies [...] after a DUI charge [facility] in [place], court ordered treatment in 2001 and in [...] by patient from his primary medical provider- MANAGEMENT DEPARTMENT CHAIR patient was noted as attending an alcohol [...] He was provided with local AOD resources, [facility] AOD informational packet. Pt was referred [...] new visit Date of service: 10/12/2018 -Referring client support administrator for today's consult: -Primary Care Provider: Zuly Bruno CC: Chief Complaint Patient presents with Liver Recipient Evaluation History of Present Illness George Styles is a 48 y.o. 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 Patient George Styles ([id number]), accompanied by his brother, was seen on [...] any further questions. 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 Etiology: ETOH HCC: No ETOH: Yes Last [...] (NEEDS, ORDERED 09/10/2018) in this encounter Assessments DiagnosisAlcoholic cirrhosis of liver without ascites - Primary Alcoholic cirrhosis of liver Pre-transplant evaluation for liver transplantHepatic encephalopathyDiagnosis Cirrhosis of liver without ascites, unspecified hepatic cirrhosis type - Primary DiagnosisCirrhosis of liver with ascites, unspecified hepatic cirrhosis type DiagnosisAlcoholic cirrhosis, unspecified whether ascites present - PrimaryPre- transplant evaluation for liver transplantDiagnosisAlcoholic cirrhosis, unspecified whether ascites presentESRD (end stage renal disease) on dialysis End stage renal disease Pre-transplant evaluation for liver transplant Reason for Referral StatusReasonSpecialtyDiagnoses / ProceduresReferred By ContactReferred To ContactNew Request Diagnoses Cirrhosis of liver without ascites, unspecified hepatic cirrhosis type Procedures US ABDOMEN RUQ/LIVER/GB Yovani Orr MD [address] [address] StatusReasonSpecialtyDiagnoses / ProceduresReferred By ContactReferred To ContactNew Request Diagnoses Cirrhosis of liver with ascites, unspecified hepatic cirrhosis type Procedures US ABDOMEN RUQ/LIVER/GB Yovani Orr MD [address] [address] SpecialtyDiagnoses / ProceduresReferred By ContactReferred To Contact Diagnoses FAYE (acute kidney injury) Procedures CT ABDOMEN/PELVIS WITHOUT CONTRAST CHG CT SCAN,ABDOMENT AND PELVIS,W/O CONTRAST Central Sched[facility] [address] [place] [address] Referral IDStatusReasonStart DateExpiration DateVisits RequestedVisits [id number] Review/[id number] / ProceduresReferred By ContactReferred To Contact Diagnoses Other hydronephrosis Procedures [facility] Ryan Yepez MD [address] [facility] [address] [place] [address] Referral IDStatusReasonStart DateExpiration DateVisits RequestedVisits [id number] Request/[id number] / Procedures Referred By ContactReferred To Contact Procedures DIRECT ADMIT REQUEST Steve Munoz, JOSHBS [address] [place] [address] Referral IDStatusReasonStart DateExpiration DateVisits RequestedVisits [id number] Request/[id number] / ProceduresReferred By ContactReferred To ContactRadiology Diagnoses DARLENE (obstructive sleep apnea) Primary hypertension (CMS/HCC) Bilateral lower extremity edema Shortness of breath Procedures Echocardiogram 2D complete Zuly Bruno, RX SPECIALIST [address] [place] [address] Referral IDStatusReasonStart DateExpiration DateVisits RequestedVisits [id number] Perform Procedure /[id number] / ProceduresReferred By ContactReferred To Contact Procedures US IMAGING REGIONAL ANESTHESIA Kehinde Gutierrez MD [address] [place] [address] Referral IDStatusReasonStart DateExpiration DateVisits RequestedVisits [id number] Request/[id number] / Procedures Referred By ContactReferred To ContactCardiovascular Medicine Diagnoses Heart failure, diastolic, acute Kelvin Smith MD, MBBS [address] [place] [address] Referral IDStatusReasonStart DateExpiration DateVisits RequestedVisits [id number] Request/[id number] / Procedures Referred By ContactReferred To Contact Procedures US ABDOMEN LIVER DOPPLER US ABDOMEN LIVER TRANSPLANT DOPPLER Timothy Joseph MD [address] [facility] [address] [place] [address] Referral IDStatusReasonStart DateExpiration DateVisits RequestedVisits [id number] Request/[id number] / Procedures Referred By ContactReferred To Contact Procedures DVT/VTE RISK ASSESSMENT Kelvin Smith MD, MBBS [address] [place] [address] Referral IDStatusReasonStart DateExpiration DateVisits RequestedVisits [id number] Request2/17/68343/367135QdoyngvucPehvxoqhi / Procedures Referred By ContactReferred To Contact Procedures PLATELET MONITORING PER PROTOCOL Kelvin Smith MD, MBBS [address] [place] [address] Referral IDStatusReasonStart DateExpiration DateVisits RequestedVisits [id number] Request/[id number] IDStatusReasonStart DateExpiration DateVisits RequestedVisits [id number] Request01/16/2024630330CyvsqzlbrJptoghzyb / ProceduresReferred By ContactReferred To Contact Procedures ECG Kelvin Smith MD, MBBS [address] [place] [address] Referral IDStatusReasonStart DateExpiration DateVisits RequestedVisits [id number] [id number] / Procedures Referred By ContactReferred To Contact Diagnoses Liver lesion Procedures MRI ABDOMEN WITH AND WITHOUT CONTRAST CHG MRI ABDOMEN W/O & W/CONTRAST MATERIAL Daisha Max, DO [address] [place] [address] Referral IDStatusReasonStart DateExpiration DateVisits RequestedVisits [id number] Request/ Advance Directives No Advanced Directives Records FoundDocuments on File TypeDate RecordedPatient RepresentativeExplanationAdvance Directives and Living WillPower of AttorneyCode StatusDate ActivatedDate InactivatedCommentsFull Code 05/10/2020 4:17 AMFull Code04/13/2020 5:11 AM05/10/2020 4:17 AMFull Code04/12/2020 2:51 PM04/13/2020 5:11 AMFull Code04/09/2020 12:36 AM04/12/2020 2:51 PMCode Status Date ActivatedDate InactivatedCommentsFull Code05/15/2022 10:11 PMFull Code 05/10/2020 4:17 AM05/15/2022 10:11 PMFull Code04/13/2020 5:11 AM05/10/2020 4:17 AM Full Code04/12/2020 2:51 PM04/13/2020 5:11 AMFull Code04/09/2020 12:36 AM04/12/2020 2:51 PMCode StatusDate ActivatedDate InactivatedCommentsFull Code05/15/2022 10:11 PMFull Code05/10/2020 4:17 AM05/15/2022 10:11 PMCode StatusDate ActivatedDate InactivatedCommentsFull Code05/15/2022 10:11 PMCode StatusDate ActivatedDate InactivatedCommentsFull Code05/10/2020 4:17 AM05/15/2022 10:11 PMFull Code 04/13/2020 5:11 AM05/10/2020 4:17 AMFull Code04/12/2020 2:51 PM04/13/2020 5:11 AM Full Code04/09/2020 12:36 AM04/12/2020 2:51 PMCode StatusDate ActivatedDate InactivatedCommentsFull Code08/28/2023 8:47 PMCode StatusDate ActivatedDate InactivatedCommentsFull Code05/15/2022 10:11 PM08/28/2023 8:47 PMFull Code 05/10/2020 4:17 AM05/15/2022 10:11 PMFull Code04/13/2020 5:11 AM05/10/2020 4:17 AM Full Code04/12/2020 2:51 PM04/13/2020 5:11 AMCode StatusDate ActivatedDate InactivatedCommentsFull Code08/28/2023 8:47 PMCode StatusDate ActivatedDate InactivatedCommentsFull Code05/15/2022 10:11 PM08/28/2023 8:47 PMFull Code 05/10/2020 4:17 AM05/15/2022 10:11 PMFull Code04/13/2020 5:11 AM05/10/2020 4:17 AM Full Code04/12/2020 2:51 PM04/13/2020 5:11 AMCode StatusDate ActivatedDate InactivatedCommentsFull Code01/20/2024 11:06 AMCode StatusDate ActivatedDate InactivatedCommentsFull Code01/16/2024 1:48 AM01/20/2024 11:06 AMFull Code 08/28/2023 8:47 PM2 1:48 AMFull Code05/15/2022 10:11 PM08/28/2023 8:47 PM Full Code05/10/2020 4:17 AM05/15/2022 10:11 PMCode StatusDate ActivatedDate InactivatedCommentsFull Code01/20/2024 11:06 AMCode StatusDate ActivatedDate InactivatedCommentsFull Code01/16/2024 1:48 AM01/20/2024 11:06 AMFull Code 08/28/2023 8:47 PM2 1:48 AMFull Code05/15/2022 10:11 PM08/28/2023 8:47 PM Full Code05/10/2020 4:17 AM05/15/2022 10:11 PMDate ActivatedDate Inactivated Comments01/20/2024 11:06 AMDate ActivatedDate InactivatedComments01/16/2024 1:48 AM01/20/2024 11:06 AMDate ActivatedDate InactivatedComments08/28/2023 8:47 PM 01/16/2024 1:48 AMDate ActivatedDate InactivatedComments05/15/2022 10:11 PM 08/28/2023 8:47 PMDate ActivatedDate InactivatedComments05/10/2020 4:17 AM 05/15/2022 10:11 PMDate ActivatedDate InactivatedComments01/20/2024 11:06 AMDate ActivatedDate InactivatedComments01/16/2024 1:48 AM01/20/2024 11:06 AMDate ActivatedDate InactivatedComments08/28/2023 8:47 PM2 1:48 AMDate ActivatedDate InactivatedComments05/15/2022 10:11 PM08/28/2023 8:47 PMDate ActivatedDate InactivatedComments05/10/2020 4:17 AM05/15/2022 10:11 PM Advance Directive Response Recorded Date/ Time Advance Directives No July 1:56am Advance Directive Response Recorded Date/ Time Advance Directives No July 25, 2025 8:08am Summary Purpose Family History No Family History Records Found Relationship Condition Age at Onset Recorded Date/T luana mother Heart disease Unknown fatherHeart diseaseUnknown Chief Complaint and Reason for Visit Chief [...] [id number] 8:20am GERD with apnea without esophagitis Sept ember 2024 8:20am Morbid obesity due to excess calories Se ptember 2024 8:20am DARLENE (obstructive sleep apnea) August 10, 2025 8:20am Peripheral neuropathy August 10 8:20am Additional Source Comments Reason for Visit (unrecogniz ed section and content) ReasonCommentsFollow-upCirrhosisStatusReasonSpecialtyDiagnoses / Procedures Referred By ContactReferred To ContactNew Request Diagnoses Cirrhosis of liver with ascites, unspecified hepatic cirrhosis type Procedures US ABDOMEN RUQ/LIVER/GB Yovani Orr MD [address] [address] StatusReasonSpecialtyDiagnoses / ProceduresReferred By ContactReferred To ContactDenied Diagnoses Alcoholic cirrhosis, unspecified whether ascites present Pre-transplant evaluation for liver transplant Procedures MRI ABDOMEN WITH CONTRAST RI MRI, ABDOMEN W/CONTRAST Yovani Orr MD [address] [place] [address] ReasonCommentsLiver Recipient EvaluationStatusReasonSpecialtyDiagnoses / ProceduresReferred By ContactReferred To ContactNew RequestTransplant / Transplant Surgery Procedures PRE NEW PATIENT Yovani Orr MD [address] [place] [address] [place] [address] Alfredito Restrepo MD [address] [place] [address] ReasonCommentsRescheduleReasonCommentsOutside Medical Records RequestReason CommentsSocial Work Follow-upReasonCommentsKidney StoneSpecialtyDiagnoses / ProceduresReferred By ContactReferred To Contact Diagnoses Obstructing kidney stone, s/p kidney transplant 2019 Daya Saldana MD [address] [place] [address] [facility] [address] [place] [address] Referral IDStatusReasonStart DateExpiration DateVisits RequestedVisits [id number]-meLrecifFnomirzcPlhfru Recipient Follow-upLiver Recipient Follow-upReasonCommentsConsultReasonCommentsNew Patient Hospital follow upSpecialtyDiagnoses / ProceduresReferred By ContactReferred To ContactUrology Diagnoses hosp fu with [address] prior Procedures NEW TO DOC/RET PATIENT Zuly Bruno, MANAGEMENT DEPARTMENT CHAIR [address] [facility] [place] [address] Ryan Yepez MD [address] [facility] [address] [place] [address] Referral IDStatusReasonStart DateExpiration DateVisits RequestedVisits [id number]/29/20228/[id number] / Procedures Referred By ContactReferred To Contact Diagnoses FAYE (acute kidney injury) Procedures CT ABDOMEN/PELVIS WITHOUT CONTRAST CHG CT SCAN,ABDOMENT AND PELVIS,W/O CONTRAST Central Scheduling [address] [place] [address] Referral IDStatusReasonStart DateExpiration DateVisits RequestedVisits [id number] Review/[id number]-tp SpecialtyDiagnoses / ProceduresReferred By ContactReferred To ContactUrology Diagnoses 1 week fu post NT clamp Procedures RETURN PATIENT Zuly Bruno, MANAGEMENT DEPARTMENT CHAIR [address] [place] [address] Ryan Yepze MD [address] [place] [address] [address] [place] [address] Referral IDStatusReasonCamden DateExpiration DateVisits RequestedVisits [id number] - UH/[id number] / ProceduresReferred By ContactReferred To Contact Diagnoses Other hydronephrosis Procedures [facility] Ryan Yepez MD [address] [facility] [address] [place] [address] Referral IDStatusReasonStde beque DateExpiration DateVisits RequestedVisits [id number] Request/[id number] / Procedures Referred By ContactReferred To ContactUrology Diagnoses 1 week fu post NT clamp Procedures RETURN PATIENT Zuly Bruno, MANAGEMENT DEPARTMENT CHAIR [address] [place] [address] Ryan Yepez MD [address] [facility] [address] [place] [address] Referral IDStatusReasonStart DateExpiration DateVisits RequestedVisits [id number]/8/20229/[id number] Recipient Follow-upReasonCommentsKidney Recipient Follow-upReasonCommentsKidney Recipient Follow-upSpecialtyDiagnoses / ProceduresReferred By ContactReferred To Contact Diagnoses Kidney replaced by transplant Steve Munoz MBBS [address] [place] [address] [facility] [address] [place] [address] Referral IDStatusReasonStart DateExpiration DateVisits RequestedVisits [id number] / ProceduresReferred By ContactReferred To Contact Diagnoses Pleural effusion on right PNEUMONIA- HX LIVER AND KIDNEY TRANSPLANT Reese Sage MD [address] [place] [address] [facility] [address] [place] [address] Referral IDStatusReasonStart DateExpiration DateVisits RequestedVisits [id number] PatientSpecialtyDiagnoses / Procedures Referred By ContactReferred To ContactCardiovascular Medicine Diagnoses Heart failure, diastolic, acute Kelvin Simth MD, MBBS [address] 1[address] [place] [address] Referral IDStatusReasonStart DateExpiration DateVisits RequestedVisits [id number] - UH/[id number] Recipient Follow-upReasonOnset DateCommentsMed [id number] RefillReasonOnset DateCommentsMed [id number]on ReasonOnset DateCommentsMed Ulxjoo8701/05/2025ReasonOnset DateCommentsMed Refill 02/01/2025ReasonCommentsOsteoporosisNEW REF/DEXA SCANSpecialtyDiagnoses / ProceduresReferred By ContactReferred To ContactEndocrinology Diagnoses Other osteoporosis without current pathological fracture Liver transplant status Organ transplant Procedures RI OFFICE/OUTPATIENT NEW HIGH MDM 60 MINUTES Zuly Bruno, BA [address] [place] [address] Phone: tel: fax: Tony Hernandez MD [address] [place] [address] Phone: tel: fax: Referral IDStatusReasonStart DateExpiration DateVisits RequestedVisits [id number] Specialty Services Required 202511ReasonCommentsFollow-upOsteoporosisLABReasonCommentsMedicare Annual Wellness Visit InitialReasonOnset DateCommentsMed Kimlkn4707/12/2025Reason Onset DateCommentsMed Ordhhq9402/20/2025ReasonCommentsOsteoporosisFollow-up1/ LAB (unrecognized sect ion and content) No Status Records FoundNo Status Records FoundNo Status Records FoundNo Status Records FoundNo Status Records FoundNo Status Records FoundNo Status Records FoundNo Status Records Found INFORMATION SOURCE (unrecogn ized section and content) DATE CREATED AUTHOR 01/07/2020 [facility] DATE CREATED AUTHOR AUTHOR'S ORGANIZ ATION 01/27/2021 [facility] DATE CREATED AUTHOR AUTHOR'S ORGANIZ ATION 05/11/2023 [facility] DATE CREATED AUTHOR AUTHOR'S ORGANIZ ATION 01/05/2025 [facility] DATE CREATED AUTHOR AUTHOR'S ORGANIZ ATION 03/26/2025 [facility] DATE CREATED AUTHOR AUTHOR'S ORGANIZ ATION 09/20/2025 [facility] DATE CREATED AUTHOR AUTHOR'S ORGANIZ ATION 09/25/2025 [facility] DATE CREATED AUTHOR AUTHOR'S ORGANIZ ATION 09/29/2025 [facility] Care Teams (unrecognized sec tion and content) Team MemberRelationshipSpecialtyStart DateEnd Date Zuly Bruno CNP PCP - General07/19/18 Comfort Rivera, [facility] [address] [facility] [address] [facility] [address] [place] [address] PharmacistPharmacist6 Angel Carpio RP,PharmD PharmacistPharmacist05/16/20 Te Leigh RP,PharmD PharmacistPharmacist2Team MemberRelationshipSpecialtyStart DateEnd Date Zuly Bruno CNP PCP - General07/19/18 Comfort Rivera, [facility] [address] [place] [address] PharmacistPharmacist05/16/20 Angel Carpio RP,PharmD PharmacistPharmacist05/16/20 Te Leigh RP,PharmD PharmacistPharmacist2Team MemberRelationshipSpecialtyStart DateEnd Date Zuly Bruno CNP PCP - General07/19/18Team MemberRelationshipSpecialtyStart DateEnd Date Zuly Bruno CNP PCP - General07/19/18Team MemberRelationshipSpecialtyStart DateEnd Date Zuly Bruno CNP PCP - General07/19/18Team MemberRelationshipSpecialtyStart DateEnd Date Zuly Bruno CNP PCP - General8/20/18Team MemberRelationshipSpecialtyStart DateEnd Date Zuly Bruno CNP PCP - General8/20/18Team MemberRelationshipSpecialtyStart DateEnd Date Zuly Bruno CNP PCP - General8/20/18Team MemberRelationshipSpecialtyStart DateEnd Date Zuly Bruno CNP PCP - General8/20/18Team MemberRelationshipSpecialtyStart DateEnd Date Zuly Bruno CNP PCP - General8/20/18Team MemberRelationshipSpecialtyStart DateEnd Date Zuly Bruno CNP PCP - General8/20/18Team MemberRelationshipSpecialtyStart DateEnd Date Zuly Bruno CNP PCP - General8/20/18Team MemberRelationshipSpecialtyStart DateEnd Date FloreslatishaZuly tipton CNP PCP - General8/20/18Team MemberRelationshipSpecialtyStart DateEnd Date Zuly Bruno CNP PCP - General8/20/18Team MemberRelationshipSpecialtyStart DateEnd Date Zuly Bruno CNP PCP - General8/20/18Team MemberRelationshipSpecialtyStart DateEnd Date Zuly Bruno CNP PCP - General07/19/18Team MemberRelationshipSpecialtyStart DateEnd Date Zuly Bruno CNP PCP - General07/19/18 Evan White DO [facility] [employer] [place] [address] Infectious DiseaseInfectious Uycrtqx27/11/23Team MemberRelationshipSpecialty Start DateEnd Date Zuly Bruno CNP PCP - General07/19/18 Evan White DO [facility] [employer] [place] [id number] Infectious DiseaseInfectious Xcbtpst50/11/23Team MemberRelationshipSpecialty Start DateEnd Date Zuly Bruno CNP PCP - General07/19/18 Evan White DO [facility] [employer] [place] [address] Infectious DiseaseInfectious Jepjvhl15/11/23Team MemberRelationshipSpecialty Start DateEnd Date Momo Verdugo MD PCP - GeneralFamily Medicine05/21/23Team MemberRelationshipSpecialtyStart DateEnd Date Momo Verdugo MD PCP - GeneralFamily Medicine05/21/23Team MemberRelationshipSpecialtyStart DateEnd Date Momo Verdugo MD PCP - GeneralFamily Medicine05/21/23Team MemberRelationshipSpecialtyStart DateEnd Date Zuly Bruno CNP PCP - General07/19/18 Evan White DO [facility] [employer] [place] [address] Infectious DiseaseInfectious Mgvogqn34/11/23Team MemberRelationshipSpecialty Start DateEnd Date Zuly Bruno CNP PCP - General07/19/18 Evan White DO [facility] [employer] [place] [address] Infectious DiseaseInfectious Kggvjdo03/11/23Team MemberRelationshipSpecialty Start DateEnd Date Zuly Bruno CNP PCP - General07/19/18 Evan White DO [facility] [employer] [place] [address] Infectious DiseaseInfectious Vxscrks27/11/23Team MemberRelationshipSpecialty Start DateEnd Date Zuly Bruno CNP PCP - General07/19/18 Evan White DO [address] [place] [address] Infectious DiseaseInfectious Iozgkdm70/11/23Team MemberRelationshipSpecialty Start DateEnd Date Zuly Bruno ROB PCP - General07/19/18 Evan White DO [address] [place] [address] Infectious DiseaseInfectious Tmnktun49/11/23Team MemberRelationshipSpecialty Start DateEnd Date Zuly Bruno CNP PCP - General07/19/18Team MemberRelationshipSpecialtyStart DateEnd Date Zuly Bruno CNP PCP - General07/19/18Team MemberRelationshipSpecialtyStart DateEnd Date Zuly Bruno CNP PCP - General07/19/18Team MemberRelationshipSpecialtyStart DateEnd Date Zuly Bruno CNP PCP - General820Team MemberRelationshipSpecialtyStart DateEnd Date Zuly Bruno CNP PCP - General07/19/18Team MemberRelationshipSpecialtyStart DateEnd Date Zuly Bruno CNP PCP - General07/19/18Team MemberRelationshipSpecialtyStart DateEnd Date Zuly Bruno CNP PCP - General07/19/18Team MemberRelationshipSpecialtyStart DateEnd Date Momo Verdugo MD [address] [place] [address] PCP - [facility]02/11/24 Zuly Bruno NP [address] [place] [address] Nurse PractitionerFamily Medicine02/11/24 Kasandra Thomas DO [address] [place] [address] Referring PhysicianNeurology02/17/24Team MemberRelationshipSpecialtyStart DateEnd Date Momo Verdugo MD [address] [place] [address] PCP - Generalmily Medicine02/11/24 Zuly Bruno NP [address] [place] [address] Nurse PractitionerFamily Medicine02/11/24 Kasandra Thomas DO [address] [place] [address] Referring PhysicianNeurology02/17/24Team MemberRelationshipSpecialtyStart DateEnd Date Momo Verdugo MD [address] [place] [address] PCP - GeneralVirgin[facility] Medicine02/11/24 Zuly Bruno NP [address] [place] [address] [facility]/11/24 Kasandra Thomas DO [address] [place], [place] [address] Referring PhysicianNeurology02/17/24Team MemberRelationshipSpecialtyStart DateEnd Date Momo Verdugo MD [address] [place] [address] PCP - [facility]02/11/24 Zuly Bruno NP [address] [place] [address] [facility]02/11/24 Kasandra Thomas DO [address] [place] [address] Referring PhysicianNeurology02/17/24Team MemberRelationshipSpecialtyStart DateEnd Date Momo Verdugo MD [address] [place] [address] PCP - [facility] Medicine02/11/24 Zuly Bruno NP [address] [place] [address] Nurse PractitionerFamily Medicine02/11/24 Kasandra Thomas DO [address] [place] [address] Referring PhysicianNeurology02/17/24Team MemberRelationshipSpecialtyStart DateEnd Date Momo Verdugo MD [address] [place] [address] PCP - GeneralFamily Medicine02/11/24 Zuly Bruno NP [address] [place] [address] Nurse PractitionerFamily Medicine02/11/24 Kasandra Thomas DO [address] [place] [address] Referring PhysicianNeurology02/17/24Team MemberRelationshipSpecialtyStart DateEnd Date Momo Verdugo MD [address] [place] [address] PCP - GeneralFamily Medicine02/11/24 Zuly Bruno NP [address] [place] [address] Nurse PractitionerFamily Medicine02/11/24 Kasandra Thomas DO [address] [place] [address] Referring PhysicianNeurology02/17/24Team MemberRelationshipSpecialtyStart DateEnd Date Momo Verdugo MD [address] [place] [address] PCP - Generalmily Medicine02/11/24 Zuly Bruno NP [address] [place] [address] Nurse PractitionerVirginia Gay Hospitally Medicine02/11/24 Kasandra Thomas DO [address], [place] [address] Referring PhysicianNeurology02/17/24Team MemberRelationshipSpecialtyStart DateEnd Date Momo Verdugo MD [address] [place] [address] PCP - [facility] Medicine02/11/24 Zuly Bruno NP [address] [place] [address] [facility]02/11/24 Kasandra Thomas DO [address] [place] [address] Referring PhysicianNeurology02/17/24Team MemberRelationshipSpecialtyStart DateEnd Date Momo Verdugo MD [address] [place] [address] [facility] - [facility]02/11/24 Zuly Bruno NP [address] [place] [address] [facility]02/11/24 Kasandra Thomas DO [address] [place] [address] Referring PhysicianNeurology02/17/24Team MemberRelationshipSpecialtyStart DateEnd Date Momo Verdugo MD [address] [place] [address] [facility] - [facility]02/11/24 Zuly Bruno NP [address] [place] [address] [facility]02/11/24 Kasandra Thomas DO [address] [place] [address] Referring PhysicianNeurology02/17/24 Team Status: Active Member Role Status Dates Zuly Bruno Primary Care Provider Active Team Status: Inactive Member Role Status Dates Zuly Bruno Primary Care Provider Active Sta rt: December 15, 2024 End: December 15, 2024Imad Asaad , MDAttending ProviderActiveStart: December 15, 2024 End: December 15, 2024 Team Status: Inactive Member Role Status Dates Zuly Bruno Primary Care Provider Active Sta rt: December 26, 2024 End: December 26, 2024Imad Asalenny , MDAttending ProviderActiveStart: December 26, 2024 End: December 26, 2024 Team Status: Active Member Role Status Dates Zuly Bruno Primary Care Provider Active Sta rt: December 26, 2024 Imad Asaad , MDAttending Provider, Other ProviderActiveStart: December 26, 2024 Team MemberRelationshipSpecialtyStart DateEnd Date Momo Verdugo MD [address] [place] [address] PCP - GeneralFamily Medicine02/11/24 Zuly Bruno NP [address] [place] [address] Nurse PractitionerFamily Medicine02/11/24 Kasandra Thomas DO [address] [place] [address] Referring PhysicianNeurology02/17/24Team MemberRelationshipSpecialtyStart DateEnd Date Momo Verdugo MD [address] [place] [address] PCP - [facility]02/11/24 Zuly Bruno NP [address] [place] [address] [facility]02/11/24 Kasandra Thomas DO [address] [place] [address] Referring PhysicianNeurology02/17/24Team MemberRelationshipSpecialtyStart DateEnd Date Momo Verdugo MD [address] [place] [address] PCP - Generalmily Medicine02/11/24 Zuly Bruno NP [address] [place] [address] Nurse PractitionerFamily Medicine02/11/24 Kasandra Thomas DO [address] [place] [address] Referring PhysicianNeurology02/17/24Team MemberRelationshipSpecialtyStart DateEnd Date Momo Verdugo MD [address] [place] [address] [facility] - [facility]02/11/24 Zuly Bruno NP [address] [place] [address] [facility]02/11/24 Kasnadra Thomas DO [address] [place] [address] Referring PhysicianNeurology02/17/24Team MemberRelationshipSpecialtyStart DateEnd Date Momo Verdugo MD [address] [place] [address] PCP - [facility] Medicine02/11/24 Zuly Bruno, BA [address] [place] [address] [facility]02/11/24 Kasandra Thomas DO [address] [place] [address] Referring PhysicianNeurology02/17/24Team MemberRelationshipSpecialtyStart DateEnd Date Momo Verdugo MD [address] [place] [address] PCP - GeneralFamily Medicine02/11/24 Zuly Bruno, BA [address] [place] [address] Nurse PractitionerFamily Medicine02/11/24 Kasandra Thomas DO [address] [place] [address] Referring PhysicianNeurology02/17/24Team MemberRelationshipSpecialtyStart DateEnd Date Momo Verdugo MD [address] [place] [address] PCP - GeneralFamily Medicine02/11/24 Zuly Bruno NP [address] [place] [address] Nurse PractitionerFamily Medicine02/11/24 Kasandra Thomas DO [address] [place] [address] Referring PhysicianNeurology02/17/24Team MemberRelationshipSpecialtyStart DateEnd Date Momo Verdugo MD [address] [place] [address] PCP - GeneralFamily Medicine02/11/24 Momo Verdugo MD [address] [place] [address] PCP - [employer]12/31/24 Zuly Bruno, BA [address] [place] [address] Nurse PractitionerVirginia Gay [facility] Medicine02/11/24 Kasandra Thomas DO [address] [place] [address] Referring PhysicianNeurology02/17/24Team MemberRelationshipSpecialtyStart DateEnd Date Momo Verdugo MD [address] [place] [address] PCP - [facility] Medicine02/11/24 Momo Verdugo MD [address] [place] [address] PCP - [employer]12/31/24 Zuly Bruno, BA [address] [place] [address] [facility]02/11/24 Kasandra Thomas DO [address] [place] [address] Referring PhysicianNeurology02/17/24Te MemberRelationshipSpecialtyStart DateEnd Date Momo Verdugo MD [address] [place] [address] PCP - [facility]02/11/24 Momo Verdugo MD [address] [place] [address] PCP - [employer] Zuly Bruno NP [address] [place] [address] [facility]02/11/24 Kasandra Thomas DO [address] [place] [address] Referring PhysicianNeurology02/17/24Team MemberRelationshipSpecialtyStart DateEnd Date Momo Verdugo MD [address] [place] [address] PCP - [facility]02/11/24 Momo Verdugo MD [address] [place] [address] PCP - [employer]12/31/24 Zuly Bruno NP [address] [place] [address] [facility]02/11/24 Kasandra Thomas DO [address] [place] [address] Referring PhysicianNeurology02/17/24Team MemberRelationshipSpecialtyStart DateEnd Date Momo Verdugo MD [address] [place] [address] PCP - [facility] Medicine02/11/24 oMmo Verdugo MD [address] [place] [address] PCP - [employer]12/31/24 Zuly Bruno NP [address] [place] [address] Nurse PractitionerFamily Medicine02/11/24 Kasandra Thomas DO [address] [place] [address] Referring PhysicianNeurology02/17/24Team MemberRelationshipSpecialtyStart DateEnd Date Zuly Bruno CNP PCP - General07/19/18Team MemberRelationshipSpecialtyStart DateEnd Date Momo Verdugo MD [address] [place] [address] PCP - [facility]02/11/24 Momo Verdugo MD [address] [place] [address] PCP - [employer]12/31/24 Zuly Bruno NP [address] [place] [address] Nurse PractitionerFamily Medicine02/11/24 Kasandra Thomas DO [address] [place] [address] Referring PhysicianNeurology02/17/24Team MemberRelationshipSpecialtyStart DateEnd Date Momo Verdugo MD [address] [place] [phone] PCP - GeneralFamily Medicine02/11/24 Momo Verdugo MD [address] [place] [phone] PCP - [employer]12/31/24 Zuly Bruno NP [address] [place] [phone] Nurse PractitionerFamily Medicine02/11/24 Kasandra Thomas DO [address] [place], [place] [id number] Referring PhysicianNeurology02/17/24Team MemberRelationshipSpecialtyStart DateEnd Date Momo Verdugo MD [address] [place] [phone] PCP - GeneralFamily Medicine02/11/24 Momo Verdugo MD [address] [place] [phone] PCP - [employer]12/31/24 Zuly Bruno NP [address] [place] [address] Nurse PractitionerFamily Medicine02/11/24 Kasandra Thomas DO [address] [place] [address] Referring PhysicianNeurology02/17/24 Team Status: Active Member Role Status Dates Zuly Bruno NP-C Primary Care Provider Active Team Status: Inactive Member Role Status Dates Zuly Bruno NP-Chinedu Primary Care Provider Active Start: August 10, 2025 End: August 10, 2025Zuly Bruno NP-CAttending ProviderActiveStart: August 10, 2025 End: August 10, 2025Team MemberRelationshipSpecialtyStart DateEnd Date Zuly Bruno CNP PCP - General07/19/18Team MemberRelationshipSpecialtyStart DateEnd Date Momo Verdugo MD PCP - [facility] Medicine02/11/24 Momo Verdugo MD [address] [place] [phone] PCP - [employer]12/31/24 Zuly Bruno NP Nurse PractitionerVirginia [facility] Medicine02/11/24 Kasandra Thomas DO [address] [place] [address] Referring PhysicianNeurology02/17/24Team MemberRelationshipSpecialtyStart DateEnd Date Momo Verdugo MD PCP - [facility]02/11/24 Momo Verdugo MD [address] [place] [phone] PCP - [employer]12/31/24 Zuly Bruno NP Nurse PractitionerFamily Medicine02/11/24 Kasandra Thomas DO [address] [place] [address] Referring PhysicianNeurology02/17/24Team MemberRelationshipSpecialtyStart DateEnd Date Zuly Bruno CNP PCP - General07/19/18Team MemberRelationshipSpecialtyStart DateEnd Date Momo Verdugo MD PCP - Generalmily Medicine02/11/24 Momo Verdugo MD [address] [place] [address] PCP - [employer]12/31/24 [facility]/11/24 Kasandra Thomas DO [address] [place] [address] Referring PhysicianNeurology02/17/24Team MemberRelationshipSpecialtyStart DateEnd Date Momo Verdugo MD PCP - GeneralFamily Medicine Momo Verdugo MD PCP - GeneralFamily Medicine02/11/24 Momo Verdugo MD [address] [place] [address] PCP - [employer]12/31/24 Zuly Bruno NP Nurse PractitionerFamily Medicine02/11/24 Kasandra Thomas DO [address] [place] [address] Referring PhysicianNeurology02/17/24 Scheduled Active and Recently Administ ered Medications (unrecognized section and content) Medication Order// allopurinol (ZYLOPRIM) tablet 100 mg 100 mg, Oral, DAILY, First dose (after last modification) on Thu05/17/22 at 0900, Until Discontinued * 0807 (Given - Provider: Mel Hampton RN) * 0805 (Given - Provider: Josey Braun, SAMI) * 0931 (Given - Provider: Leon Cook, RN) amLODIPine (NORVASC) tablet 5 mg 5 mg, Oral, DAILY, First dose on Thu05/16/22 at 0900, Until Discontinued * 0807 (Given - Provider: Mel Hampton RN) * 0805 (Given - Provider: Josey Braun, RN) * 0932 (Given - Provider: Leon Cook, RN) aspirin chewable tablet 81 mg 81 mg, Oral, DAILY, First dose on Thu05/16/22 at 0900, Until Discontinued * 0807 (Given - Provider: Mel Hampton RN) * 0805 (Given - Provider: Josey Braun, RN) * 0930 (Given - Provider: Leon Cook, SAMI) atorvastatin (LIPITOR) tablet 20 mg 20 mg, Oral, DAILY AT BEDTIME, First dose on Marta 05/15/22 at 2215, Until Discontinued * 1999 (Given - Provider: Carolyn Isaac RN) * 2058 (Given - Provider: Carolyn Isaac RN) * 2099 (Canceled Entry - Provider: System Discharge - Comment: Automatically canceled at discontinue of medication order) cefTRIAXone (ROCEPHIN) 2 g in dextrose 50mL premix IVPB 2 g, Intravenous, Administer over 30 Minutes, EVERY 24 HOURS, First dose on Thu05/16/22 at 1800, Until Discontinued * 1737 ($$New Bag$$ - Provider: Mel Hampton RN) * 1807 (Stopped - Provider: Carolyn Isaac, SAMI) * 1800 ($$New Bag$$ - Provider: Josey Braun RN) * 1827 (Paused - Provider: Carolyn Isaac RN) * 1836 (Restarted - Provider: Carolyn Isaac RN) * 1836 (Stopped - Provider: Carolyn Isaac RN) * 1723 ($$New Bag$$ - Provider: Leon Cook RN) * 1747 (Rate/Dose Verify - Provider: Leon Cook RN) diatrizoate Meglumine (Cystografin) 30 % UR solution 80 mL (COMPLETED) 80 mL, Other, ONCE, 1 dose, On Thu05/20/22 at 1330, Radiology Procedure * 1251 (Given - Radiology - Provider: Lizz Campos MD - Comment: via neph tube) faMOTIdine (PEPCID) tablet 20 mg 20 mg, Oral, DAILY, First dose on Thu05/16/22 at 0900, Until Discontinued * 0807 (Given - Provider: Mel Hampton RN) * 0806 (Given - Provider: Josey Braun, SAMI) * 0932 (Given - Provider: Leon Cook, SAMI) gabapentin (NEURONTIN) capsule 400 mg 400 mg, Oral, DAILY AT BEDTIME, First dose on Thu05/15/22 at 2215, Until Discontinued * 2000 (Given - Provider: Carolyn Isaac RN) * 2058 (Given - Provider: Carolyn Isaac RN) * 2100 (Canceled Entry - Provider: System Discharge - Comment: Automatically canceled at discontinue of medication order) heparin injection 5,000 Units 5,000 Units, Subcutaneous, EVERY 8 HOURS (0800/1600/2200), First dose (after last modification) on Thu05/16/22 at 1600, Until Discontinued * 0628 (Unheld by provider - Provider: Nishant Gamez MD) * 0806 (Given - Provider: Mel Hampton RN) * 1558 (Given - Provider: Mel Hampton RN) * 2131 (Given - Provider: Carolyn Isaac RN) * 0804 (Given - Provider: Josey Braun, RN) * 1754 (Given - Provider: Josey Braun, RN) * 2059 (Given - Provider: Carolyn Isaac RN) * 0742 (Given - Provider: Leon Cook RN) * 1502 (Given - Provider: Leon Cook RN) losartan (COZAAR) tablet 50 mg 50 mg, Oral, 2 TIMES DAILY, First dose on Thu05/16/22 at 0900, Until Discontinued * 0900 (Automatically Held - Provider: Fred Prince MD) * 1700 (Automatically Held - Provider: Fred Prince MD) * 0900 (Automatically Held - Provider: Fred Prince MD) * 1700 (Automatically Held - Provider: Fred Prince MD) * 0618 (Unheld by provider - Provider: Nishant Gamez MD) * 0930 (Given - Provider: Leon Cook RN) * 1722 (Given - Provider: Leon Cook RN) Magnesium Sulfate 4 g in sterile water 50 ml premix IVPB (COMPLETED) 4 g, Intravenous, Administer over 4 Hours, ONCE, 1 dose, On Thu05/18/22 at 0700 * 0814 ($$New Bag$$ - Provider: Mel Hampton RN) * 1030 (Rate/Dose Verify - Provider: Carolyn Isaac RN) * 1137 (Stopped - Provider: Carolyn Isaac RN) Magnesium Sulfate 4 g in sterile water 50 ml premix IVPB (COMPLETED) 4 g, Intravenous, Administer over 4 Hours, ONCE, 1 dose, On Thu05/19/22 at 0715 * 0803 ($$New Bag$$ - Provider: Josey Braun, SAMI) * 1128 (Stopped - Provider: Josey Braun, SAMI) Magnesium Sulfate 4 g in sterile water 50 ml premix IVPB (COMPLETED) 4 g, Intravenous, Administer over 4 Hours, ONCE, 1 dose, On Thu05/20/22 at 0700 * 0742 ($$New Bag$$ - Provider: Leon Cook RN) * 1035 (Stopped - Provider: Leon Cook, RN) * 1322 (Stopped - Provider: Leon Cook, RN) mycophenolate sodium (MYFORTIC) tablet DR 360 mg 360 mg, Oral, EVERY 12 HOURS NON-STANDARD, First dose on Marta 05/15/22 at 2245, Until Discontinued, Give on an empty stomach. Swallow tablet whole; do not split, crush, or chew. * 0807 (Given - Provider: Mel Hampton RN) * 1999 (Given - Provider: Carolyn Isaac, SAMI) * 0805 (Given - Provider: Josey Braun, SAMI) * 2058 (Given - Provider: Carolyn Isaac, RN) * 07 (Given - Provider: Leon Cook RN) * 1999 (Canceled Entry - Provider: System Discharge - Comment: Automatically canceled at discontinue of medication order) polyethylene glycol (MIRALAX) packet 17 g 17 g, Oral, EVERY 12 HOURS, First dose (after last modification) on Thu05/16/22 at 0900, Until Discontinued * 0810 (Not Given - Provider: Mel Hampton RN - Reason: Patient with symptoms) * 1959 (Given - Provider: Carolyn Isaac, SAMI) * 1136 (Not Given - Provider: Josey Braun RN - Reason: Patient/family refused) * 2100 (Not Given - Provider: Carolyn Isaac RN - Reason: Patient/family refused - Comment: pt had multiple BM today) * 0931 (Given - Provider: Leon Cook, SAMI) * 2100 (Canceled Entry - Provider: System Discharge - Comment: Automatically canceled at discontinue of medication order) potassium chloride (K-DUR) tablet ER 20 mEq (COMPLETED) 20 mEq, Oral, ONCE, 1 dose, On Thu05/18/22 at 1715, Swallow tablets whole; do not crush, chew, or suck on tablet. Tablet may also be broken in half and each half swallowed separately. * 1735 (Given - Provider: Mel Hampton RN) potassium chloride (K-DUR) tablet ER 40 mEq (COMPLETED) 40 mEq, Oral, ONCE, 1 dose, On Thu05/19/22 at 0900, Swallow tablets whole; do not crush, chew, or suck on tablet. Tablet may also be broken in half and each half swallowed separately. * 0805 (Given - Provider: Josey Braun RN) potassium chloride (K-DUR) tablet ER 40 mEq (COMPLETED) 40 mEq, Oral, ONCE, 1 dose, On 05/19/22 at 1745, Swallow tablets whole; do not crush, chew, or suck on tablet. Tablet may also be broken in half and each half swallowed separately. * 1754 (Given - Provider: Josey Braun RN) senna (SENOKOT) tablet 8.6 mg 8.6 mg, Oral, DAILY, First dose on Thu05/16/22 at 0900, Until Discontinued * 0807 (Given - Provider: Mel Hampton RN) * 0806 (Given - Provider: Josey Braun RN) * 0932 (Given - Provider: Leon Cook RN) sodium-potassium phosphate (K-PHOS NEUTRAL) tablet 1,000 mg (COMPLETED) 1,000 mg, Oral, ONCE, 1 dose, On Thu05/18/22 at 1715 * 1735 (Given - Provider: Mel Hampton RN) sodium-potassium phosphate (K-PHOS NEUTRAL) tablet 1,000 mg (COMPLETED) 1,000 mg, Oral, ONCE, 1 dose, On Thu05/19/22 at 0900 * 0805 (Given - Provider: Josey Braun RN) [...] pharmacy if altered dose or route needed. * 0900 (Automatically Held - Provider: Evan Bennett MD) * 0959 (Unheld by provider - Provider: Nishant Gamez MD) * 1999 (Given - Provider: Carolyn Isaac, SAMI) * 08 (Given - Provider: Josey Braun RN) * 2058 (Given - Provider: Carolyn Isaac RN) * 31 (Given - Provider: Leon Cook RN) * 2100 (Canceled Entry - Provider: System Discharge - Comment: Automatically canceled at discontinue of medication order) Tamsulosin HCl (FLOMAX) capsule 0.4 mg 0.4 mg, Oral, DAILY, First dose on Thu05/16/22 at 0900, Until Discontinued, Slow release product. Do not chew or crush * 0807 (Given - Provider: Mel Hampton RN) * 0805 (Given - Provider: Josey Braun RN) * 0933 (Given - Provider: Leon Cook RN) Medication Order// lactated ringers IV solution (CANCELED) Intravenous, at 100 mL/hr, CONTINUOUS, Starting on Thu05/18/22 at 1230, Until Thu05/18/22 at 1645 * 1557 ($$New Bag$$ - Provider: Mel Hampton RN) * 1558 (Rate/Dose Verify - Provider: Carolyn Isaac RN) * 1737 (Paused - Provider: Carolyn Isaac RN) * 1807 (Restarted - Provider: Carolyn Isaac RN) * 1822 (Paused - Provider: Carolyn Isaac RN) * 1823 (Restarted - Provider: Carolyn Isaac RN) * 1925 (Rate/Dose Verify - Provider: Carolyn Isaac RN) * 2059 (Stopped - Provider: Carolyn Isaac RN) Medication Order// acetaminophen (TYLENOL) tablet 650 mg 650 mg, Oral, EVERY 6 HOURS NEEDED, Starting on Thu05/15/22 at 2311, Until Thu05/20/22 at 2110, Mild Pain, Moderate Pain, Maximum dose of acetaminophen is 4000 mg from all sources in 24 hours. * 1739 (Given - Provider: eMl Hampton RN) * 1501 (Given - Provider: Leon Cook RN) [...] Marta 05/15/22 at 2206, Until Thu05/20/22 at 2110,Insomnia ondansetron (ZOFRAN) tablet 4 mg(Linked Group 1) [...] Thu05/20/22 at 2110, Severe Pain, Moderate Pain * 0338 (See Alternative - Provider: Carolyn Isaac RN) * 0806 (See Alternative - Provider: Mel Hampton RN) * 0825 (Given - Provider: Josey Braun RN) * 2105 (Given - Provider: Carolyn Isaac RN) oxyCODONE HCl (ROXICODONE) tablet 10 mg(Linked Group 2) 10 mg, Oral, EVERY 4 HOURS NEEDED, Starting on Thu05/16/22 at 0614, Until Thu05/20/22 at 2110, Severe Pain * 0338 (Given - Provider: Carolyn Isaac RN) * 0806 (Given - Provider: Mel Hampton RN) * 0825 (See Alternative - Provider: Josey Braun RN) * 2105 (See Alternative - Provider: Carolyn Isaac RN) sodium chloride 0.9% IV solution 250 mL Intravenous, at 20 mL/hr, NEEDED, Starting on Thu05/15/22 at 2206, Until Thu05/20/22 at 2110, Carrier Fluid - See Admin. Inst, 250mL 0.9NS to be used as carrier fluid for intermittent small volumeor piggyback medication administration as needed. Infusion rate of the carrier fluid should be set at 20 mL/hr unless the rate as the intermittent medication is less than 20 mL/hr. For intermittent medications with a rate less than 20 mL/hr set the carrier fluid at that rate of the intermittent or piggy back medication. * 0740 ($$New Bag$$ - Provider: Leon Cook RN) * 0742 (Paused - Provider: Leon Cook RN) * 1230 (Restarted - Provider: Leon Cook RN) * 1231 (Paused - Provider: Leon Cook RN) * 1334 (Restarted - Provider: Leon Cook RN) * 1336 (Rate/Dose Change - Provider: Leon Cook RN) * 1337 (Rate/Dose Change - Provider: Leon Cook RN) * 1337 (Stopped - Provider: Leon Cook RN) Order Group 1: ondansetron 4mg/2ml (ZOFRAN) injection [...] Thu05/20/22 at 2110, Severe Pain, Moderate Pain Medication Order// Allopurinol (ZYLOPRIM) tablet 200 mg 200 mg, Oral, DAILY, First dose on 08/29/23 at 0900, Until Discontinued * 0753 (Given - Provider: Aixa Holden RN) * 0829 (Given - Provider: Terra Heart, SAMI) * 0957 (Given - Provider: Cheyanne Mcdonough, SAMI) amLODIPine (NORVASC) tablet 5 mg 5 mg, Oral, EVERY 24 HOURS, First dose on Thu09/03/23 at 2100, Until Discontinued * 2035 (Given - Provider: Girish Nunez RN) * 2024 (Given - Provider: Carolyn Plasencia, SAMI) aspirin chewable tablet 81 mg 81 mg, Oral, DAILY, First dose on 08/29/23 at 0900, Until Discontinued * 0753 (Given - Provider: Aixa Holden RN) * 0829 (Given - Provider: Terra Heart, SAMI) * 0957 (Given - Provider: Cheyanne Mcdonough, SAMI) Atorvastatin (LIPITOR) tablet 20 mg 20 mg, Oral, DAILY AT BEDTIME, First dose on Thu08/28/23 at 2100, Until Discontinued * 2100 (Hold - Provider: Girish Nunez RN - Reason: Other) * 2100 (Automatically Held) * 164 (Unheld by provider - Provider: System Discharge) faMOTIdine (PEPCID) tablet 20 mg (CANCELED) 20 mg, Oral, 2 TIMES DAILY, First dose on Thu08/28/23 at 1800, Until Discontinued * 0753 (Given - Provider: Aixa Holden RN) Gabapentin (NEURONTIN) capsule 400 mg 400 mg, Oral, DAILY AT BEDTIME, First dose on Thu08/28/23 at 2100, Until Discontinued * 2035 (Given - Provider: Girish Nunez RN) * 2024 (Given - Provider: Carolyn Plasencia RN) Heparin injection 5,000 Units 5,000 Units, Subcutaneous, EVERY 8 HOURS (0800/1600/2200), First dose on Thu08/28/23 at 1745, UntilDiscontinued * 0800 (Not Given - Provider: Aixa Holden RN - Reason: Patient/family refused) * 1451 (Not Given - Provider: Aixa Holden RN - Reason: Patient/family refused) * 2036 (Not Given - Provider: Girish Nunez RN - Reason: Patient/family refused) * 0830 (Not Given - Provider: Terra Heart RN - Reason: Patient/family refused) * 1630 (Not Given - Provider: Terra Heart RN - Reason: Patient/family refused) * 2117 (Not Given - Provider: Carolyn Plasencia RN - Reason: Patient/family refused) * 0906 (Not Given - Provider: Cheyanne Mcdonough RN - Reason: Patient/family refused) * 1600 (Canceled Entry - Provider: System Discharge - Comment: Automatically canceled at discontinue of medication order) Itraconazole (SPORANOX) oral solution 200 mg 200 mg, Oral, EVERY 12 HOURS NON-STANDARD, First dose (after last modification) on Thu09/06/23 at 1800, Until Discontinued, Administer on an empty stomach. Hold tube feeds for 1 hour before and 2 hours after administration. * 0558 (Given - Provider: Girish Nunez RN) * 1609 (Given - Provider: Aixa Holden RN) * 0617 (Given - Provider: Girish Nunez RN) * 1805 (Given - Provider: Terra Heart RN) * 0610 (Given - Provider: Carolyn Plasencia RN) magnesium oxide (MAG-OX) tablet 800 mg 800 mg, Oral, DAILY, First dose (after last modification) on Thu09/08/23 at 0900, Until Discontinued * 0753 (Given - Provider: Aixa Holden RN) * 0829 (Given - Provider: Terra Heart RN) * 0957 (Given - Provider: Cheyanne Mcdonough, SAMI) Magnesium sulfate 4 g in sterile water 50 ml premix IVPB (COMPLETED) 4 g, Intravenous, Administer over 4 Hours, ONCE, 1 dose, On Thu09/09/23 at 0800 * 0757 ($$New Bag$$ - Provider: Aixa Holden RN) Mycophenolate sodium (MYFORTIC) tablet DR 360 mg 360 mg, Oral, EVERY 12 HOURS NON-STANDARD, First dose (after last modification) on Thu09/03/23 at 2100, Until Discontinued, Give on an empty stomach. Swallow tablet whole; do not crush, split or chew. Contact pharmacy if alternate route or dose is needed. * 0753 (Given - Provider: Aixa Holden RN) * 2035 (Given - Provider: Girish Nunez, SAMI) * 0829 (Given - Provider: Terra Heart, SAMI) * 2024 (Given - Provider: Carolyn Plasencia RN) * 0958 (Given - Provider: Cheyanne Mcdonough, SAMI) Potassium chloride (K-DUR) tablet ER 20 mEq (CANCELED) 20 mEq, Oral, DAILY, First dose on Thu09/09/23 at 0900, Until Discontinued, Swallow tablets whole;do not crush, chew, or suck on tablet. Tablet may also be broken in half and each half swallowed separately. * 0753 (Given - Provider: Aixa Holden RN) Potassium chloride (K-DUR) tablet ER 20 mEq (COMPLETED) 20 mEq, Oral, ONCE, 1 dose, On Thu09/09/23 at 1115, Swallow tablets whole; do not crush, chew, or suck on tablet. Tablet may also be broken in half and each half swallowed separately. * 1143 (Given - Provider: Aixa Holden RN) Potassium chloride (K-DUR) tablet ER 40 mEq 40 mEq, Oral, DAILY, First dose (after last modification) on Thu09/10/23 at 0900, Until Discontinued, Swallow tablets whole; do not crush, chew, or suck on tablet. Tablet may also be broken in half and each half swallowed separately. * 0829 (Given - Provider: Terra Heart RN) * 0958 (Given - Provider: Cheyanne Mcdonough, SAMI) Sulfamethoxazole-trimethoprim (BACTRIM DS) 800-160 MG per tablet 1 tablet 1 tablet, Oral, THREE TIMES WEEKLY (Once per day on Thu), First dose (after last modification) on Thu09/04/23 at 0900, Until Discontinued * 0956 (Given - Provider: Aixa Holden RN) * 1000 (Given - Provider: Cheyanne Mcdonough, SAMI) tacrolimus (PROGRAF) susp 0.25 mg (CANCELED) 0.25 mg, Oral, DAILY, First dose on Thu09/09/23 at 0900, Until Discontinued, Caution check route of administration. For sublingual administration, place liquid under tongue and allow absorption. * 1142 (Given - Provider: Aixa Holden RN) * 0829 (Given - Provider: Terra Heart, SAMI) [...] release product. Do not chew or crush * 0753 (Given - Provider: Aixa Holden RN) * 0829 (Given - Provider: Terra Heart, SAMI) * 0957 (Given - Provider: Cheyanne Mcdonough RN) Medication Order// Acetaminophen (TYLENOL) tablet 650 mg 650 mg, Oral, EVERY 6 HOURS NEEDED, Starting on Thu09/04/23 at 0925, Until Thu09/11/23 at 1645,Moderate Pain, Mild Pain, Oral temp > 100.4 F, Maximum dose of acetaminophen is 2000 mg from allsources in 24 hours. guaiFENesin (ROBITUSSIN) oral solution 200 mg 200 mg, Oral, EVERY 4 HOURS NEEDED, Starting on Thu08/29/23 at 0803, Until Thu09/11/23 at 1645,Cough Melatonin tablet 6 mg 6 mg, Oral, DAILY AT BEDTIME NEEDED, Starting on Thu08/28/23 at 1738, Until Thu09/11/23 at 1645, Insomnia * 2221 (Given - Provider: Girish Nunez RN) * 2205 (Given - Provider: Carolyn Plasencia RN) [...] rate of the carrier fluid should be setat 20 mL/hr unless the rate as the intermittent medication is less than 20 mL/hr. For intermittent medications with a rate less than 20 mL/hr set the carrier fluid at that rate of the intermittent orpiggy back medication. Sodium chloride 3 % inhalation solution 4 mL 4 mL, Nebulization, NEEDED, Starting on Thu09/04/23 at 0926, Until Thu09/11/23 at 1645, Other, c/f mucus plugging Order Group 1: Ondansetron 4mg/2ml (ZOFRAN) injection [...] Nausea / Vomiting, 1st line for Nausea/Vomiting Medication Order01/21/// Allopurinol (ZYLOPRIM) tablet 200 mg 200 mg, Oral, DAILY, First dose on 01/16/24 at 0900, Until Discontinued * 0842 (Given - Provider: Erica Ross RN) * 0841 (Given - Provider: Terra Heart RN) * 1053 (MAR Hold - Provider: Automatic Transfer - Reason: Transfer to a Procedural area) * 1414 (MAR Unhold - Provider: Automatic Transfer) * 0920 (Given - Provider: Terra Heart RN) amLODIPine (NORVASC) tablet 5 mg 5 mg, Oral, DAILY, First dose on 01/16/24 at 0900, Until Discontinued, On hold since Thu01/18/2024 at 1009 until manually unheld * 0900 (Automatically Held - Provider: Arelis Mera MD) * 0900 (Automatically Held - Provider: Arelis Mera MD) * 0900 (Automatically Held - Provider: Arelis Mera MD) * 1752 (Unheld by provider - Provider: System Discharge) aspirin chewable tablet 81 mg 81 mg, Oral, DAILY, First dose on 01/16/24 at 0900, Until Discontinued, On hold since Thu01/21/2024 at 0802 until manually unheld * 0802 (Held by provider - Provider: Arelis Mera MD - Reason: Other) * 0900 (Automatically Held - Provider: Arelis Mera MD) * 0900 (Automatically Held - Provider: Arelis Mera MD) * 0900 (Automatically Held - Provider: Arelis Mera MD) * 1752 (Unheld by provider - Provider: System Discharge) Enoxaparin Sodium (LOVENOX) injection 40 mg 40 mg, Subcutaneous, EVERY 24 HOURS, 6 doses, First dose (after last reorder) on Thu01/22/24 at 1430, Last dose on Thu01/27/24 at 1430, Indications: DVT/PE prophylaxis * 1700 (Given - Provider: Terra Heart RN) * 1530 (Given - Provider: Terra Heart RN) faMOTIdine (PEPCID) tablet 20 mg 20 mg, Oral, 2 TIMES DAILY, First dose on 01/16/24 at 0900, Until Discontinued * 0842 (Given - Provider: Erica Ross RN) * 1619 (Given - Provider: Dillon Lyman RN) * 0841 (Given - Provider: Terra Heart RN) * 1053 (MAR Hold - Provider: Automatic Transfer - Reason: Transfer to a Procedural area) * 141 ([facility] Unhold - Provider: Automatic Transfer) * 1806 (Given - Provider: Terra Heart RN) * 0920 (Given - Provider: Terra Heart RN) * 1700 (Canceled Entry - Provider: System Discharge - Comment: Automatically canceled at discontinue of medication order) Gabapentin (NEURONTIN) capsule 400 mg 400 mg, Oral, DAILY AT BEDTIME, First dose on 01/16/24 at 0200, Until Discontinued * 2033 (Given - Provider: Tati Ahmadi RN) * 1053 ([facility] Hold - Provider: Automatic Transfer - Reason: Transfer to a Procedural area) * 141 ([facility] Unhold - Provider: Automatic Transfer) * 2008 (Given - Provider: Tati Ahmadi RN) Itraconazole (SPORANOX) oral solution 100 mg 100 mg, Oral, EVERY 12 HOURS, First dose on 01/16/24 at 0900, Until Discontinued, Administer on an empty stomach. Hold tube feeds for 1 hour before and 2 hours after administration. * 0843 (Given - Provider: Erica Ross RN) * 2034 (Given - Provider: Tati Ahmadi RN) * 0842 (Given - Provider: Terra Heart RN) * 1053 (MAR Hold - Provider: Automatic Transfer - Reason: Transfer to a Procedural area) * 141 ([facility] Unhold - Provider: Automatic Transfer) * 2008 (Given - Provider: Tati Ahmadi RN) * 0923 (Given - Provider: Terra Heart, SAMI) Magnesium sulfate 4 g in sterile water 50 ml premix IVPB (COMPLETED) 4 g, Intravenous, Administer over 4 Hours, ONCE, 1 dose, On Marta 01/21/24 at 0815 * 0848 ($$New Bag$$ - Provider: Erica Ross RN) * 1218 (Stopped - Provider: Dillon Lyman RN) Mycophenolate sodium (MYFORTIC) tablet DR 360 mg 360 mg, Oral, 2 TIMES DAILY (Solid Organ Transplant), First dose on 01/16/24 at 0800, Until Discontinued, Give on an empty stomach. Swallow tablet whole; do not crush, split or chew. Contact pharmacy if alternate route or dose is needed. * 0842 (Given - Provider: Erica Ross RN) * 203 (Given - Provider: Tati Ahmadi RN) * 0841 (Given - Provider: Terra Heart RN) * 1053 (JAN Hold - Provider: Automatic Transfer - Reason: Transfer to a Procedural area) * 1414 (MAR Unhold - Provider: Automatic Transfer) * 2008 (Given - Provider: Tati Ahmadi RN) * 0920 (Given - Provider: Terra Heart RN) Sulfamethoxazole-trimethoprim (BACTRIM DS) 800-160 MG per tablet 1 tablet 1 tablet, Oral, THREE TIMES WEEKLY (Once per day on Thursday), First dose on Thu01/18/24 at 0900, Until Discontinued * 0846 (Given - Provider: Terra Heart RN) * 1053 (JAN Hold - Provider: Automatic Transfer - Reason: Transfer to a Procedural area) * 1414 (MAR Unhold - Provider: Automatic Transfer) tacrolimus (PROGRAF) susp 0.2 mg 0.2 mg, Oral, CUSTOM FREQUENCY (Once per day on Thursday), First dose on 01/16/24 at 0900, Until Discontinued, Caution check route of administration. For sublingual administration, place liquid under tongue and allow absorption. * 0842 (Given - Provider: Erica Ross RN) * 1053 (JAN Hold - Provider: Automatic Transfer - Reason: Transfer to a Procedural area) * 1414 (MAR Unhold - Provider: Automatic Transfer) * 0923 (Given - Provider: Terra Heart RN) Tamsulosin HCl (FLOMAX) capsule 0.4 mg 0.4 mg, Oral, DAILY, First dose on 01/16/24 at 0900, Until Discontinued, Slow release product. Do not chew or crush * 0842 (Given - Provider: Erica Ross RN) * 0841 (Given - Provider: Terra Heart RN) * 1053 ([facility] Hold - Provider: Automatic Transfer - Reason: Transfer to a Procedural area) * 1414 ([facility] Unhold - Provider: Automatic Transfer) * 0920 (Given - Provider: Terra Heart RN) Torsemide (DEMADEX) tablet 20 mg (CANCELED) 20 mg, Oral, 2 TIMES DAILY BEFORE MEALS, First dose on Thu01/20/24 at 1600, Until Discontinued, Max: 200 mg/day * 0842 (Given - Provider: Erica Ross RN) Torsemide (DEMADEX) tablet 20 mg 20 mg, Oral, DAILY, First dose (after last modification) on Thu01/22/24 at 0900, Until Discontinued, Max: 200 mg/day * 0841 (Given - Provider: Terra Heart RN) * 1053 ([facility] Hold - Provider: Automatic Transfer - Reason: Transfer to a Procedural area) * 1414 ([facility] Unhold - Provider: Automatic Transfer) * 0920 (Given - Provider: Terra Heart RN) Medication Order01/21//// Acetaminophen (TYLENOL) tablet 650 mg 650 mg, Oral, EVERY 6 HOURS NEEDED, Starting on 01/16/24 at 0202, Until 01/23/24 at 1752, Mild Pain, Moderate Pain, Severe Pain, Oral temp > 101.5 F, 1st line for Pain, Maximum dose of acetaminophen is 4000 mg from all sources in 24 hours. * 1053 ([facility] Hold - Provider: Automatic Transfer - Reason: Transfer to a Procedural area) * 1414 ([facility] Unhold - Provider: Automatic Transfer) * 1806 (Given - Provider: Terra Heart RN) * 2353 (Given - Provider: Tati Ahmadi RN) alum/mag hydrox.-simethicone oral suspension 30 mL 30 mL, Oral, EVERY 6 HOURS NEEDED, Starting on 01/16/24 at 0202, Until 01/23/24 at 1752, Indigestion, Per 5 mL is equivalent to: (Alum-Mag Hydroxide 200-225 mg and Simethicone 20 mg) and (Alum-Mag Hydroxide 200-200 mg and Simethicone 20 mg) * 1053 ([facility] Hold - Provider: Automatic Transfer - Reason: Transfer to a Procedural area) * 1414 ([facility] Unhold - Provider: Automatic Transfer) guaiFENesin (ROBITUSSIN) oral solution 400 mg 400 mg, Oral, EVERY 6 HOURS NEEDED, Starting on 01/16/24 at 0202, Until 01/23/24 at 1752, Cough, Congestion * 1053 ([facility] Hold - Provider: Automatic Transfer - Reason: Transfer to a Procedural area) * 1414 ([facility] Unhold - Provider: Automatic Transfer) HYDROmorphone (DILAUDID) injection 0.2 mg (CANCELED) 0.2 mg, Intravenous, EVERY 3 HOURS NEEDED, Starting on Thu01/22/24 at 1323, Until 01/23/24 [id number], Severe Pain * 2103 (Given - Provider: Tati Ahmadi RN) Lidocaine (XYLOCAINE) 10 mg/mL injection (CANCELED) NEEDED, Starting on Thu01/22/24 at 1248, Until Thu01/22/24 at 1306, Intra-op/Intra-Proc * 1248 (Given - Provider: Jyoti Bryant MD, PhD) Melatonin tablet 6 mg 6 mg, Oral, DAILY AT BEDTIME NEEDED, Starting on Tu01/19/24 at 0016, Until 01/23/24 at 1752,Insomnia * 1053 ([facility] Hold - Provider: Automatic Transfer - Reason: Transfer to a Procedural area) * 1414 ([facility] Unhold - Provider: Automatic Transfer) * 2355 (Given - Provider: Tati Ahmadi RN) Ondansetron (ZOFRAN) tablet 4 mg(Linked Group 1) 4 mg, Oral, EVERY 6 HOURS NEEDED, Starting on 01/16/24 at 0202, Until 01/23/24 at 1752, Nausea / Vomiting, 1st line for Nausea/Vomiting * 1053 ([facility] Hold - Provider: Automatic Transfer - Reason: Transfer to a Procedural area) * 1414 ([facility] Unhold - Provider: Automatic Transfer) * 1809 (See Alternative - Provider: Terra Heart RN) * 0430 (See Alternative - Provider: Tati Ahmadi RN) * 1415 (Given - Provider: Terra Heart RN) Ondansetron 4mg/2ml (ZOFRAN) injection 4 mg(Linked Group 1) 4 mg, Intravenous, EVERY 6 HOURS NEEDED, Starting on 01/16/24 at 0202, Until 01/23/24 at 1752, Nausea / Vomiting, 1st line for Nausea/Vomiting * 1053 ([facility] Hold - Provider: Automatic Transfer - Reason: Transfer to a Procedural area) * 1414 ([facility] Unhold - Provider: Automatic Transfer) * 1809 (Given - Provider: Terra Heart RN) * 0430 (Given - Provider: Tati Ahmadi RN) * 1415 (See Alternative - Provider: Terra Heart RN) oxyCODONE (ROXICODONE) tablet 5 mg 5 mg, Oral, EVERY 4 HOURS NEEDED, Starting on 01/22/24 at 1322, Until 01/23/24 at 1752, Moderate Pain, Severe Pain * 1441 (Given - Provider: Terra Heart RN) * 1926 (Given - Provider: Terra Heart RN) * 0427 (Given - Provider: Tati Ahmadi RN) * 0917 (Given - Provider: Terra Heart RN) * 1312 (Given - Provider: Terra Heart RN) Polyethylene glycol (MIRALAX) packet 17 g 17 g, Oral, DAILY NEEDED, Starting on 01/16/24 at 0202, Until 01/23/24 at 1752, Constipation 1st Line * 1053 ([facility] Hold - Provider: Automatic Transfer - Reason: Transfer to a Procedural area) * 1414 ([facility] Unhold - Provider: Automatic Transfer) Prochlorperazine (COMPAZINE) injection 10 mg 10 mg, Intravenous, EVERY 6 HOURS NEEDED, Starting on 01/17/24 at 1538, Until 01/23/24 at 1752, Nausea / Vomiting, Refractory Nausea Vomiting, For IV route: dilute dose with 10mL normal saline and give by slow IV push at a rate of 5mg/min. Maximum of 40mg/day. * 1053 ([facility] Hold - Provider: Automatic Transfer - Reason: Transfer to a Procedural area) * 1414 ([facility] Unhold - Provider: Automatic Transfer) * 2349 (Given - Provider: Tati Ahmadi, SAMI) * 0916 (Given - Provider: Terra Heart RN) Sodium chloride 0.9% IV solution 250 mL Intravenous, at 20 mL/hr, NEEDED, Starting on 01/16/24 at 0202, Until 01/23/24 at 1752, Carrier Fluid - See Admin. Inst, 250mL 0.9NS to be used as carrier fluid for intermittent small volumeor piggyback medication administration as needed. Infusion rate of the carrier fluid should be set at 20 mL/hr unless the rate as the intermittent medication is less than 20 mL/hr. For intermittent medications with a rate less than 20 mL/hr set the carrier fluid at that rate of the intermittent or piggy back medication. * 1053 ([facility] Hold - Provider: Automatic Transfer - Reason: Transfer to a Procedural area) * 1414 ([facility] Unhold - Provider: Automatic Transfer) Medication Order01/21//// Lidocaine (XYLOCAINE) 10 mg/mL injection 1 dose, Starting on 01/23/24 at 1846, Until 01/24/24 at 1900, Created by cabinet override * 1900 (Due) Order Group 1: Ondansetron 4mg/2ml (ZOFRAN) injection [...] BE BASED ON THE PRIMARY CLINICAL RECORDS. [facility]. provides no warranty or guarantee of the accuracy or completeness of information in this document.
--- NOTE | 2025-10-04 07:30 | XR_ITS ---
The [address] [address] Patient Name: GEORGE MCCARTNEY MRN: [id number] date: 1970 Sex: M Assigned Patient Location: [place] Current Patient Location: [place] Accession/Order Number: [id number] Exam Date: 10/04/2025 07:25 Report Date: 10/04/2025 08:55 At the request of: RHODA KINNEY NP Procedure: XR abdomen 1V SINGLE VIEW ABDOMEN CLINICAL DATA: History of right transplant kidney and renal stones. COMPARISON: CT 05/19/2023 and ultrasound 10/04/2025 Supine views of the abdomen and pelvis were obtained. There is air and stool within the colon. There is also air within borderline caliber small bowel loops at the left abdomen. Both [place] kidneys are obscured. No obvious radiopaque renal stones are identified. There is a 6 mm calcification overlying the right iliac wing . It is uncertain if this could be a stone at the transplant kidney. No soft tissue masses are seen. There is atherosclerotic disease. Several hemostasis clips are visualized at the right upper quadrant. There are also a few clips in the paraspinal right lower abdomen. Mild degenerative changes are seen at the spine. XR/XR abdomen 1V IMPRESSION: QUESTION OF POSSIBLE STONE INVOLVING THE RIGHT PELVIC TRANSPLANT KIDNEY. NO OTHER OBVIOUS NEPHROLITHIASIS WITHIN LIMITS OF BOWEL GAS AND STOOL. Impression dictated by: Katie Owens M.D. 10/04/2025 8:55 AM Dictation Location: [place] [address] Electronically authenticated by: [id number] Y Date: 10/04/2025 08:55
== END 2025-10-04 06:56 | disposition home or self-care (01) ==
LOC: US 06:56
PROVIDERS: PCP Nurse Practitioner; Visit Provider Nurse Practitioner
DX: Z12.5 Encounter for screening for malignant neoplasm of prostate (principal); N20.0 Calculus of kidney
CPT/HCPCS: 74018; 76775